=== PATIENT | male | born 1960 | race Caucasian/White ===

== ENCOUNTER 2017-04-01 20:18 | Observation (INO) | payer OTHER, SELFPAY ==
[2017-04-01] VITALS (7 sets, daily range): BP systolic 102–125; BP diastolic 66–99; PULSE 60–78; RESP 14–19; TEMP 35.8–36.4; O2SAT 83–98; BMI 24.7
[2017-04-01 20:32] LABS: Bedside Glucose 153 mg/dL (70-110)
--- NOTE | 2017-04-01 20:49 | ED.RN ---
2014 PT arrives via EMS with security and police at bedside. PT is talkative, at times wants to leave and can get combative. PT has short periods of unresponsive/passing out.
--- NOTE | 2017-04-01 20:51 | ED.RN ---
2030, pt wants to get out of bed/room and use restroom. Redirected PT several times, Valeriy Medic and myself had to put pt back into bed. PT became verbally abusive, refused to use urinal. Soft restraints placed.
--- NOTE | 2017-04-01 21:03 | EKG12_ITS ---
Test Reason : REPEAT Blood Pressure : / mmHG Vent. Rate : 060 BPM Atrial Rate : 060 BPM P-R Int : 160 ms QRS Dur : 140 ms QT Int : 476 ms P-R-T Axes : 053 037 -86 degrees QTc Int : 476 ms Suspect unspecified pacemaker failure Normal sinus rhythm Right bundle branch block T wave abnormality, consider lateral ischemia Abnormal ECG Confirmed by NARENDRA ALFREDO ([id number]), editor in chief BENJAMÍN JAVIER ([id number] on 04/06/2017 1:40:14 PM Referred By: WESTLEY Confirmed By:NARENDRA ALFREDO
--- NOTE | 2017-04-01 21:03 | CT_ITS ---
STUDY: CT BRAIN WITHOUT CONTRAST REASON FOR EXAM: Male, 56 years old. Falling injury of the head. RADIATION DOSAGE (If Supplied By Facility): CTDIvol = ( 44.99 ) mGy, DLP = ( 779.24 ) mGycm TECHNIQUE: Transaxial CT imaging of the brain was performed without administration of intravenous contrast material. Individualized dose optimization techniques were used for this CT. COMPARISON: Prior head CT exam of November 29, 2016 FINDINGS: Normal soft tissue structures. Normal calvarium. Normal size ventricles and extra-axial spaces for the patient's age. Normal white matter tracts of the cerebral hemispheres. Normal basal ganglia and thalami. Normal brainstem. Normal cerebellum. There is no intracranial hemorrhage. There are no findings of an acute ischemic infarction. Moderate mucosal thickening at the base of the left maxillary sinus with a small amount of free fluid. Few opacified air cells at the tip of the left mastoid process CT/Brain/Head without Contrast IMPRESSION: Normal unenhanced CT scan of the brain. Mucosal thickening and a small amount of fluid of the left maxillary sinus. A few opacified air cells at the tip of the left mastoid process. Electronically Signed: Daphney Curtis MD at 22:38 EST , Service support ,
--- NOTE | 2017-04-01 21:03 | CT_ITS ---
STUDY: CT CERVICAL SPINE WITHOUT CONTRAST REASON FOR EXAM: Male, 56 years old. Possible falling injury of the neck. RADIATION DOSAGE (If Supplied By Facility): CTDIvol = ( 20.93 ) mGy, DLP = ( 463.96 ) mGycm TECHNIQUE: High resolution transaxial imaging was performed without contrast material. Sagittal and coronal images were reconstructed. Individualized dose optimization techniques were used for this CT. COMPARISON: None FINDINGS: Normal craniovertebral junction. Normal anterior atlantoaxial articulation. Normal odontoid process. There is straightening of the normal cervical lordosis. Normal vertebral bodies and posterior osseous elements. C2-3: Mild disc narrowing without central stenosis or foraminal narrowing. C3-4: Mild disc narrowing and uncovertebral arthrosis. Negative for central stenosis. Minimal foraminal narrowing. C4-5: Mild disc narrowing and uncovertebral arthrosis. Negative for central or foraminal narrowing. C5-6: Disc narrowing and uncovertebral arthrosis. Negative for central stenosis. Mild bilateral foraminal narrowing. C6-7: Disc narrowing and uncovertebral arthrosis. Negative for central stenosis. Bilateral mild foraminal narrowing C7-T1: Normal endplates. Normal disc height and morphology. Normal central canal and intervertebral neuroforamina. Emphysematous changes of the upper lobes. Mild carotid artery calcifications. CT/Spine Cervical without Contras IMPRESSION: Straightening of the cervical spine without a fracture deformity. Mild degenerative disc and joint changes as stated above. Electronically Signed: Daphney Curtis MD at 22:36 EST , Service support ,
--- NOTE | 2017-04-01 21:09 | RAD_ITS ---
STUDY: X-RAY CHEST REASON FOR EXAM: Male, 56 years old. Low blood sugar. TECHNIQUE: Single AP portable view of the chest. COMPARISON: Prior chest radiograph of January 09, 2017. FINDINGS: Stable curvilinear scarring in the mid left lung. Limited inspiration without new consolidation or pleural effusion. Normal size heart. Status post prior midline sternotomy with right atrial/right ventricle pacemaker in good position. Normal visualized pulmonary arteries. There is atherosclerotic calcification of the aortic arch with tortuosity. Normal visualized ribs, clavicles, and shoulders. Surgical bartolome of the right axilla. RAD/Chest 1 View (Portable) IMPRESSION: Reduced inspiration without other acute findings or changes. Stable scar of the mid left lung. Normal cardiac size status post prior midline sternotomy with right atrial/ventricular pacemaker in good position. Electronically Signed: Daphney Curtis MD at 21:27 EST , Service support ,
[2017-04-01 21:17] LABS: Bedside Glucose 112 mg/dL (70-110)
--- NOTE | 2017-04-01 21:18 | ED.RN ---
PT refusing CT scan.
--- NOTE | 2017-04-01 21:25 | ED.RN ---
PT has fallen tonight and c/o headache. PT is unable to make his own decisions, therefore cannot refuse testing. PT and father aware. CT coming back to take PT.
[2017-04-01 21:31] LABS: ALB/GLOB Ratio 1.2 RATIO (0.9-2.4); AST(SGOT) 34 U/L (15-37); Alanine Aminotransfer ALT/SGPT 57 U/L (16-61); Albumin, Serum 3.7 g/dL (3.2-5.0); Alkaline Phosphatase 123 U/L (45-117); Anion Gap 8 (5-15); BUN 12 mg/dL (7-18); BUN/Creat Ratio 16.1 RATIO (10-20); Chloride 106 mmol/L (98-107); Creatinine, Serum 0.74 mg/dL (0.70-1.30); EST Glomerular Filtration Rate 116 mL/min (>60); Est Glom Filt Rate - Afr Amer 141 mL/min (>60); Estimated Creatinine Clearance 121.54 ml/min; Globulin 3.1 g/dL (2.2-4.2); Glucose 159 mg/dL (74-106); Potassium 3.5 mmol/L (3.5-5.1); Protein, Total 6.8 g/dL (6.4-8.2); Sodium Level 141 mmol/L (136-145)
[2017-04-01 21:37] LABS: Absolute Lymphocyte Count 1.28 X10^3/ul (0.83-4.51); Absolute Neutrophil Count 8.8 X10^3/uL (2.0-7.7); Basophil# 0.06 X10^3/uL; Basophil% 0.6 % (0-1); Eosinophil# 0.13 X10^3/uL; Eosinophils% 1.2 % (0-5); Hematocrit 38.7 % (40-54); Hemoglobin 12.7 g/dl (13.0-16.5); Lymphocyte # 1.28 X10^3/ul (4.0); Mean Corp Hgb Conc 32.8 g/gl (32-36); Mean Corpuscular Hgb 31.5 pg (27.0-32.0); Mean Platelet Vol. 10.9 fl (6.2-12.0); Monocyte# 0.41 X10^3/uL; Monocyte% 3.8 % (0-10); Neutrophil # 8.77 X10^3/uL (2.7-7.7); Neutrophil % 82.1 % (47-70); Platelet Count 221 K/mm3 (150-450); RBC Distribution Width CV 14.4 % (11.6-14.6); RBC Distribution Width SD 48.9 fl (35.1-43.9); Red Blood Count 4.03 M/mm3 (4.6-6.2); White Blood Count 10.7 K/mm3 (4.4-11.0)
[2017-04-01 21:40] LABS: POSITIVE COUNT NO; POSITIVE DIFFERENTIAL NO; POSITIVE MORPHOLOGY NO
[2017-04-01] MEDS: Ziprasidone IM 20 MG/ML VIAL IM (21:45)
[2017-04-01 21:54] LABS: Bacteria 0 SEEN /hpf (None Seen); Mucous, Urine 0 SEEN /hpf (<or=2+); Squamous Epithelial Cells - UA 0 SEEN /hpf (0-5); White Blood Cells 0 SEEN /hpf (0-5)
[2017-04-01 21:55] LABS: Color, Urine Yellow (Yellow); Glucose, Dipstick 50 mg/dl (Normal); Ketone-Dipstick Negative (Negative); Leukocyte Esterase-Dipstick Negative /ul (Negative); Nitrite-Dipstick Negative (Negative); Occult Blood-Urine 250 /ul (Negative); Protein-Dipstick Negative (Negative); Urine Bilirubin Dipstick Negative (Negative); Urine Clarity Clear (Clear); Urine Urobilinogen Normal (Normal)
[2017-04-01 22:10] LABS: Red Blood Cells-Urine 50-100 SEEN /hpf (0-5)
[2017-04-01 22:16] LABS: Amphetamine Urine VISTA NEGATIVE (<1000 ng/mL); Barbiturate Urine VISTA NEGATIVE (< 200 ng/mL); Benzodiazepine Urine VISTA NEGATIVE (< 200 ng/mL); Cocaine Urine VISTA NEGATIVE (< 300 ng/mL); Ecstacy Urine VISTA NEGATIVE (< 500 ng/mL); Methadone Urine VISTA NEGATIVE (< 300 ng/mL); PCP Urine VISTA NEGATIVE (< 25 ng/mL); THC Urine VISTA NEGATIVE (< 50 ng/mL); Vista UDS pH Range 6
--- NOTE | 2017-04-01 22:54 | EKG12_ITS ---
Test Reason : ETOH Blood Pressure : / mmHG Vent. Rate : 060 BPM Atrial Rate : 060 BPM P-R Int : 194 ms QRS Dur : 142 ms QT Int : 452 ms P-R-T Axes : 084 019 167 degrees QTc Int : 452 ms Atrial-paced rhythm Right bundle branch block T wave abnormality, consider lateral ischemia Abnormal ECG Confirmed by NARENDRA ALFREDO ([id number]), marketing editor BENJAMÍN JAVIER ([id number] on 04/06/2017 1:40:28 PM Referred By: WESTLEY Confirmed By:NARENDRA ALFREDO
--- NOTE | 2017-04-01 22:59 | ED.DCSUM_ITS ---
- ER Visit Summary Date of Service: 04/01/17 Chief Complaint: Unresponsive History of Present Illness: The patient is a 56 M who presents with altered mental status. He was drinking vodka tonight. Father states he heard him collapse in the bathroom. EMS was called. He was unresponsive on their arrival and hypoglycemic with a blood sugar in the 30s. He was given D50 and his blood sugar improved to over 200. The patient complains of a headache currently and the father does believe he hit his head when he collapsed. Otherwise father reports he has had no recent illness. No fevers cough vomiting or diarrhea he is aware of. Physical Examination: Afebrile vitals are stable Moist mucous membranes Heart regular rate and rhythm Lungs are clear Abdomen soft nontender Patient appears to be clinically intoxicated. He has no focal or lateralizing neurological deficits. Test Results: EKG shows a paced rhythm with a right bundle branch block and T- wave inversions in V4 through V6 which are new when compared to prior EKG. laboratory studies notable for hemoglobin 12.7 and 50-100 RBCs in the urine. Troponin negative at 0.05. Urine drug screen negative. Alcohol 194. Emergency Department Course and Treatment: Nursing reported that the patient had several syncopal events here. He was intoxicated and repetitively trying to get out of bed. He would collapse backwards and require sternal rub. This was never witnessed by the physician. He was placed in soft restraints. The patient was refusing workup. Given his alcohol intoxication I did not feel he was able to safely make these decisions on his own so he was sedated with intramuscular Geodon. Imaging unremarkable. Given the patient's extensive cardiac history and EKG changes with syncope I did feel he would require further workup. I do not believe alcohol alone explains his syncopal events or sudden collapse at home. Patient will be admitted. Repeat EKG and repeat troponin pending at the time of this dictation. Treatment Plan: [] Disposition: Admit Impression: Syncope EKG changes Hypoglycemia Alcohol intoxication This note was generated with [employer] dictation software. It may contain incorrect words, spelling, and punctuation that were not noted in review of the chart prior to signing ED Disposition - Plan for ED Patient: Chief Complaint: ETOH Intox Referrals: Donna Pedroza MD [Primary Care Provider] -
--- NOTE | 2017-04-01 23:00 | NURSING ---
WILL CALL THE PT FATHER WITH A ROOM NUMBER OR IF ANYTHING CHANGES WITH THE PT
--- NOTE | 2017-04-01 23:24 | HP.PCM_ITS ---
Problem List (1) Altered mental status Status: Acute Qualifiers: Altered mental status type: unspecified Qualified Code(s): R41.82 - Altered mental status, unspecified (2) Sick sinus syndrome Status: Chronic (3) Diabetes mellitus, type II Status: Chronic Qualifiers: Diabetes mellitus complication status: without complication Diabetes mellitus extermination supervisor insulin use: with extermination supervisor use Qualified Code(s): E11.9 - Type 2 diabetes mellitus without complications; Z79.4 - [facility] (current) use of insulin (4) HTN (hypertension) Status: Chronic Qualifiers: Hypertension type: essential hypertension Qualified Code(s): I10 - Essential (primary) hypertension (5) Tobacco use Status: Chronic History of Present Illness Date of Admission: 04/01/17 Chief Complaint: Loss of consciousness The patient is a 56 year old M with past medical history of alcohol use use disorder, type II DM, hypertension, status post bovine aortic valve replacement , aortic aneurysm surgical repair, nicotine use disorder, sick sinus syndrome with pacemaker insertion is being admitted with loss of consciousness. The EMS, they were called to the patient's home. Patient was found unresponsive in the bathroom floor. He lives with his father in a mobile home. His father states that the patient has been drinking vodka for most of the day. Blood sugar was 36 and he was treated with an amp of IV D50 by the EMS. Blood sugar was said to be 202. Patient subsequently became agitated and stated that he wanted to kill himself. He is reported by EMS reports to have lost his son to heroin overdose. In the ED, patient's vitals were stable, routine blood work was unremarkable. EKG shows some T-wave inversions in II, III, aVF, V5 and V6 he had complained of headache in the ED, was agitated, received Geodon IM, CT scan of the brain is negative. 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) Sick sinus syndrome (Chronic) Diabetes mellitus, type II (Chronic) HTN (hypertension) (Chronic) Tobacco use (Chronic) Aortic aneurysm (Chronic) H/O aortic valve replacement (Chronic) Allergies No Known Allergies Allergy (Verified 01/03/17 08:39) Home Medications: Ambulatory Orders Medication Instructions Recorded Insulin Detemir [Levemir] 30 units SC QHS 06/20/16 Lisinopril [Zestril] 20 mg PO DAILY 06/20/16 Metformin HCl [Glucophage] 1,000 mg PO BIDCM 06/20/16 Metoprolol Tartrate 100 mg PO BID 06/20/16 Atorvastatin Calcium [Lipitor] 40 mg PO QHS #0 tablet 06/21/16 Aspirin [Aspirin, Baby] 81 mg PO DAILY@0800 tab.chew 11/29/16 Surgical History: - - Aortic aneurysm repair and aortic valve replacement ( bovine) with total 3 separate surgies, most recent 04/2016 [facility], R inguinal hernia repair. Psychiatric History: No pertinent psych hx Smoking Status: Current every day smoker - *Family History Maternal History Items: Dementia Paternal History Items: Heart Disease Review of Systems Unable to obtain accurate/complete ROS d/t: Patient is currently sedated VTE Information - Inpt Only VTE Present on Admission: No VTE Pharm Prophylaxis ordered?: Yes Patient Problems: Active and Suspected Problems Altered mental status (Acute) - Physical Exam General: Cooperative, Lethargic - sedated HEENT: Atraumatic, PERRLA, EOMI, Normocephalic Oral: Moist Mucosa Neck: Supple Lungs: Clear to auscultation, Normal air movement Cardiovascular: Regular rate, No murmurs, - - Midsternal scar, right subclavian pacemaker scar Abdomen: Bowel Sounds Present, Soft, Non Tender, Non-Distended, - - laparoscopic scars on abdomen. Extremities: No edema Skin: No rashes Musculoskeletal: No Tenderness to Palpation of Joints or Extremities Lymphatic: No Cervical, Supraclavicular, or Inguinal Adenopathy Neurological: Motor Exam 5/5 strength throughout, - - Patient is sedated Psych/Mental Status: Normal Affect, Appropriate Vital Signs Temp Pulse Resp BP Pulse Ox 96.5 F L 78 14 102/76 98 04/01/17 20:19 04/01/17 23:00 04/01/17 23:00 04/01/17 23:00 04/01/17 23:00 Oxygen Flow Rate 2 Oxygen Delivery Method Nasal Cannula Weight: 80.6 kg Body Mass Index (BMI) 24.7 Finger Stick Blood Glucose 112 Laboratory Tests Past 24 Hrs 04/01/17 04/01/17 04/01/17 20:25 20:25 20:25 WBC 10.7 RBC 4.03 L Hgb 12.7 L Hct 38.7 L MCV 96.0 H MCH 31.5 MCHC 32.8 RDW 14.4 RDW Differential 48.9 H Plt Count 221 MPV 10.9 Immature Gran % (Auto) 0.300 Neut % (Auto) 82.1 H Lymph % (Auto) 12.0 L [place] % (Auto) 3.8 Eos % (Auto) 1.2 Baso % (Auto) 0.6 Absolute Neuts (auto) 8.8 H Absolute Lymphs (auto) 1.28 Total Counted Not Reportable Sodium 141 Potassium 3.5 Chloride 106 Carbon Dioxide 27.0 Anion Gap 8 BUN 12 Creatinine 0.74 Estim Creat Clear Calc 121.54 Est GFR (MDRD) Af Amer 141 Est GFR (MDRD) Non-Af 116 BUN/Creatinine Ratio 16.1 Glucose 159 H Calcium 8.0 L Total Bilirubin 0.20 AST 34 ALT 57 Alkaline Phosphatase 123 H Troponin I 0.05 Total Protein 6.8 Albumin 3.7 Globulin 3.1 Albumin/Globulin Ratio 1.2 Urine Color Urine Clarity Urine pH Ur Specific [place] Urine Protein Urine Glucose (UA) Urine Ketones Urine Occult Blood Urine Nitrite Urine Bilirubin Urine Urobilinogen Ur Leukocyte Esterase Urine RBC Urine WBC Ur Squamous Epith Cells Urine Bacteria Urine Mucus Urine Opiates Screen Urine Methadone Screen Ur Barbiturates Screen Ur Phencyclidine Scrn Ur Amphetamines Screen U Methamphetamin-MDMA U Benzodiazepines Scrn Urine Cocaine Screen U Cannabinoids Screen Ur Drug Screen Comment Ethyl Alcohol 194.0 04/01/17 04/01/17 04/01/17 21:40 21:40 23:10 WBC RBC Hgb Hct MCV MCH MCHC RDW RDW Differential Plt Count MPV Immature Gran % (Auto) Neut % (Auto) Lymph % (Auto) [place] % (Auto) Eos % (Auto) Baso % (Auto) Absolute Neuts (auto) Absolute Lymphs (auto) Total Counted Sodium Potassium Chloride Carbon Dioxide Anion Gap BUN Creatinine Estim Creat Clear Calc Est GFR (MDRD) Af Amer Est GFR (MDRD) Non-Af BUN/Creatinine Ratio Glucose Calcium Total Bilirubin AST ALT Alkaline Phosphatase Troponin I Pending Total Protein Albumin Globulin Albumin/Globulin Ratio Urine Color Yellow Urine Clarity Clear Urine pH 6.0 Ur Specific [place] 1.010 Urine Protein Negative Urine Glucose (UA) 50 H Urine Ketones Negative Urine Occult Blood 250 H Urine Nitrite Negative Urine Bilirubin Negative Urine Urobilinogen Normal Ur Leukocyte Esterase Negative Urine RBC 50-100 SEEN Urine WBC 0 SEEN Ur Squamous Epith Cells 0 SEEN Urine Bacteria 0 SEEN Urine Mucus 0 SEEN Urine Opiates Screen NEGATIVE Urine Methadone Screen NEGATIVE Ur Barbiturates Screen NEGATIVE Ur Phencyclidine Scrn NEGATIVE Ur Amphetamines Screen NEGATIVE U Methamphetamin-MDMA NEGATIVE U Benzodiazepines Scrn NEGATIVE Urine Cocaine Screen NEGATIVE U Cannabinoids Screen NEGATIVE Ur Drug Screen Comment Ethyl Alcohol POC Glucose 04/01/17 04/01/17 21:08 20:21 POC Glucose 112 H 153 H Assessment/Plan Active and Suspected Problems Altered mental status (Acute) 56 year old M with past medical history of alcohol use use disorder, type II DM , hypertension, status post bovine aortic valve replacement, aortic aneurysm surgical repair, nicotine use disorder, sick sinus syndrome with pacemaker insertion is being admitted with loss of consciousness. 1. Altered Mental status/loss of consciousness secondary to alcohol overdose/ hypoglycemia, admitting alcohol level is 194, urine toxicology has been negative. History of alcohol use disorder, vitals otherwise are stable. It is not clear if this was a suicide attempt. Plan: Admit to PCU, monitor on telemetry, CIWA protocol, treatment of hypoglycemia, consult mental health/crisis 2. Hypoglycemia in a known type II DM, insulin and metformin, both medications have been on hold, will continue to monitor with Accu-Cheks and insulin sliding scale and treat accordingly 3. Abnormal EKG new T-wave inversions in the anterior lateral leads, troponins ? 1 is negative, will trend troponins continue on aspirin, statin 4. Suicidal ideation, will consult Mental health, suicide precautions. 5. Hypertension, controlled 5. Type II DM, currently hypoglycemic, medications on hold, will continue to monitor blood sugar. 6. Nicotine use disorder, start on nicotine patch 7. Alcohol use disorder, on CIWA protocol, 7. DVT PPx - Lovenox SC Code Visit Inpatient E&M: 16403 Init Hosp L3
[2017-04-01 23:46] LABS: Bedside Glucose 55 mg/dL (70-110)
[2017-04-01] MEDS: Dextrose 50%-Water 25 GM/50 ML DISP.SYRIN IV (23:59)
[2017-04-01] MEDS: Dext 5%-0.45% NS 1,000 ML 100 ML IV (23:59)
[2017-04-02] VITALS (10 sets, daily range): BP systolic 91–168; BP diastolic 61–99; PULSE 60–99; RESP 14–18; TEMP 36.6–37.4; O2SAT 92–100; BMI 20.8
[2017-04-02 00:11] LABS: Bedside Glucose 119 mg/dL (70-110)
[2017-04-02 01:45] LABS: Bedside Glucose 95 mg/dL (70-110)
[2017-04-02 04:10] LABS: Hematocrit 40.6 % (40-54); Hemoglobin 13.3 g/dl (13.0-16.5); Mean Corp Hgb Conc 32.8 g/gl (32-36); Mean Corpuscular Hgb 31.6 pg (27.0-32.0); Mean Corpuscular Volume 96.4 fL (80-94); Mean Platelet Vol. 10.6 fl (6.2-12.0); Platelet Count 196 K/mm3 (150-450); RBC Distribution Width CV 14.7 % (11.6-14.6); RBC Distribution Width SD 50.5 fl (35.1-43.9); Red Blood Count 4.21 M/mm3 (4.6-6.2); White Blood Count 6.9 K/mm3 (4.4-11.0)
[2017-04-02 04:11] LABS: Scan Indicated on CBC? Y/N NO
[2017-04-02 04:25] LABS: Anion Gap 8 (5-15); BUN 11 mg/dL (7-18); BUN/Creat Ratio 16.7 RATIO (10-20); Calcium,Total 8.2 mg/dL (8.5-10.1); Chloride 111 mmol/L (98-107); Creatinine, Serum 0.66 mg/dL (0.70-1.30); EST Glomerular Filtration Rate 134 mL/min (>60); Est Glom Filt Rate - Afr Amer 162 mL/min (>60); Estimated Creatinine Clearance 122.16 ml/min; Glucose 92 mg/dL (74-106); Potassium 3.8 mmol/L (3.5-5.1); Sodium Level 144 mmol/L (136-145)
[2017-04-02 06:56] LABS: Bedside Glucose 112 mg/dL (70-110)
[2017-04-02] MEDS: Dext 5%-0.45% NS 1,000 ML 100 ML IV (08:22)
[2017-04-02] MEDS: Acetaminophen 325 MG Tablet 650 MG PO (08:23)
[2017-04-02] MEDS: Folic Acid 1 MG Tablet PO (08:26)
[2017-04-02] MEDS: Famotidine 20 MG Tablet PO (08:26)
[2017-04-02] MEDS: Thiamine Hydrochloride 100 MG Tablet PO (08:26)
[2017-04-02] MEDS: Multivitamins,Ther W-Minerals Tablet 1 TABLET PO (08:26)
[2017-04-02] MEDS: Enoxaparin 40 MG/0.4 ML Syringe SC (08:27)
--- NOTE | 2017-04-02 11:32 | DCINST_ITS ---
- Discharge Diagnoses Current Active Problems: Current Active and Chronic Problems Altered mental status (Acute) You will use the following diet at home:: Calorie/Carbohydrate Controlled ( specify 1200, 1400, etc) - 1800 kcal/day, Cardiac Your food should be the consistency of: Regular Your liquids should be the consistency of: Regular/Thin Discharge Activity: Return to Normal Activity Return to work on:: 04/02/17 Call your doctor if you observe: Fever of 101 or Higher, - - syncope Allergies/Adverse Reactions: Allergies No Known Allergies Allergy (Verified 01/03/17 08:39) Medications to take at Discharge Insulin Detemir [Levemir] 25 units SC BID 06/20/16 Lisinopril [Zestril] 20 mg PO DAILY 06/20/16 Metoprolol Tartrate 100 mg PO BID 06/20/16 Acetaminophen [Tylenol Tablet] 500 mg PO Q6H PRN PRN tablet 04/02/17 Aspirin [Aspirin, Baby] 81 mg PO DAILY@0800 04/02/17 Atorvastatin Calcium [Lipitor] 40 mg PO QHS 04/02/17 Fluoxetine HCl [Prozac] 40 mg PO DAILY 04/02/17 Primary Care Physician: Donna Pedroza MD [Primary Care Provider] - Within 2 Weeks Please Follow Up With: 180 - counseling When: 1 week Proposed Discharge Date: 04/02/17
--- NOTE | 2017-04-02 11:32 | PCM.DC.SUM ---
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 Mucosal thickening and a small amount of fluid of the left maxillary sinus. A few opacified air cells at the tip of the left mastoid process. Electronically Signed: Daphney Curtis MD at 22:38 EST , Service support , Cervical Spine CT 04/01/17 21:03 IMPRESSION: Straightening of the cervical spine without a fracture deformity. Mild degenerative disc and joint changes as stated above. Electronically Signed: Daphney Curtis MD at 22:36 EST , Service support , Chest X-Ray 04/01/17 21:09 IMPRESSION: Reduced inspiration without other acute findings or changes. Stable scar of the mid left lung. Normal cardiac size status post prior midline sternotomy with right atrial/ventricular pacemaker in good position. Electronically Signed: Daphney Curtis MD at 21:27 EST , Service support , Consultations 04/02/17 03:31 Consult: Mental Health/Crisis Routine Reason for consult?: Suicidal ideation/attempt Date Notified:: 04/02/17 Time notified:: 09:10 Operations: None Summary of Care Provided: The patient is a 56 year old M found unresponsive intoxicated. Patient was also found to be hypoglycemic as well. Patient was brought to the emergency room and eventually sobered up. Patient was monitored overnight and had no further issues. Addition the patient's stupor study want to kill himself. Patient has no recollection of illness and denies feeling suicidal. Patient apparently has done this before. Patient was seen by crisis who do not feel the patient is a threat for suicide. Patient has been advised to not drink at all. Patient otherwise feels well he feels remorseful for the events. Patient is on insulin with Levemir plus metformin. I have advised patient to discontinue the metformin because of the risk of further hypoglycemia. [] Discharge Diet: 1800 Calorie Control Diet Discharge Activity: Return to Normal Activity Return to work on:: 04/02/17 Call your doctor if you observe: Fever of 101 or Higher, - - syncope Home Medications: Medications to take at Discharge Insulin Detemir [Levemir] 25 units SC BID 06/20/16 Lisinopril [Zestril] 20 mg PO DAILY 06/20/16 Metoprolol Tartrate 100 mg PO BID 06/20/16 Acetaminophen [Tylenol Tablet] 500 mg PO Q6H PRN PRN tablet 04/02/17 Aspirin [Aspirin, Baby] 81 mg PO DAILY@0800 04/02/17 Atorvastatin Calcium [Lipitor] 40 mg PO QHS 04/02/17 Fluoxetine HCl [Prozac] 40 mg PO DAILY 04/02/17 Primary Care Physician: Donna Pedroza MD [Primary Care Provider] - Within 2 Weeks Please Follow Up With: 180 - counseling When: 1 week Disposition: Home Minutes spent on discharge:: 28 Patient Condition:: Good Meaningful Use Info Meaningful Use Diagnoses (Choose all that apply): None applicable Code Visit OBSV E&M: 13590 Observation care discharge
--- NOTE | 2017-04-02 11:34 | PCM.CONS.C ---
Problem List (1) Altered mental status Status: Acute Qualifiers: Altered mental status type: unspecified Qualified Code(s): R41.82 - Altered mental status, unspecified (2) Pacemaker Status: Acute (3) Sick sinus syndrome Status: Chronic (4) HTN (hypertension) Status: Chronic Qualifiers: Hypertension type: essential hypertension Qualified Code(s): I10 - Essential (primary) hypertension (5) Aortic aneurysm Status: Chronic Qualifiers: Aortic location: unspecified (6) H/O aortic valve replacement Status: Chronic Reason for Consult Date of Consultation: 04/02/17 Reason for Consultation: Syncope, history of aortic valve replacement, history of a sending aortic root repair/replacement, permanent pacemaker, tobacco abuse, alcohol abuse. History of Present Illness: The patient is a 56 year old M, diabetic no previous known coronary disease, with a history of hypercholesterolemia and apparently underwent an aortic aneurysm repair in 2010 at the [facility]. In 2015 patient apparently required aortic valve replacement and received a mechanical valve from [facility] at that time. Patient apparently required redo ascending aortic root replacement and replacement of his mechanical valve for a bovine aortic valve at the [facility] in 2016. Subsequent to that the patient required permanent pacemaker placement for bradycardia at the time of his most recent open heart surgery. According to the patient is never had bypass of his coronary arteries or stents. He does smoke however and he was an alcoholic for approximately 10 years time. The patient quit alcohol about 20 months ago, but then restarted drinking this past weekend on the anniversary of his son's overdose. The patient was drinking 1-2/5 of vodka on a daily basis for the past several days. As best he can remember he blacked out and was found in his bathroom with blood sugars in the 30s. Patient does not remember anything or how he got to the hospital. He denied any chest pain symptoms. He denies any loss of bowel or bladder function. Upon arrival his EKG showed paced atrial rhythm with normal intrinsic ventricular response. No acute changes. Echocardiogram is pending. Pacer interrogation is pending. Prior to his reinitiation of drinking, patient denied any chest pain, angina, shortness of breath or dyspnea on exertion, fevers, chills. The patient follows with Dr. Rosa locally. Past Medical History Allergies/Adverse Reactions: Allergies No Known Allergies Allergy (Verified 01/03/17 08:39) Home Medications: Ambulatory Orders Medication Instructions Recorded Insulin Detemir [Levemir] 25 units SC BID 06/20/16 Lisinopril [Zestril] 20 mg PO DAILY 06/20/16 Metoprolol Tartrate 100 mg PO BID 06/20/16 Acetaminophen [Tylenol Tablet] 500 mg PO Q6H PRN PRN tablet 04/02/17 Aspirin [Aspirin, Baby] 81 mg PO DAILY@0800 04/02/17 Atorvastatin Calcium [Lipitor] 40 mg PO QHS 04/02/17 Fluoxetine HCl [Prozac] 40 mg PO DAILY 04/02/17 Past Medical History (Chronic Problems): Chronic Problems 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 Psychiatric History: No pertinent psych hx - *Family History Maternal History Items: Dementia Paternal History Items: Heart Disease Smoking Status: Current every day smoker Review of Systems - Review of Systems General: Denies: Fever, Night Sweats, Fatigue Cardiovascular: Reports: Syncope. Denies: Chest Discomfort, Shortness of Breath, Orthopnea, PND, Peripheral Edema, Palpitations, Lightheadedness, Dizziness, Near Syncope Respiratory: Denies: Cough, Sputum Production, Hemoptysis Gastrointestinal: Denies: Hematemesis, Hematochezia, Melena Genitourinary: Denies: Dysuria, Hematuria Skin: Denies: Rash Subjectve: Patient completely stable, no acute distress, answers questions appropriately. Objective: Vital Signs Temp Pulse Resp BP Pulse Ox 98 F 87 16 168/99 H 100 04/02/17 10:00 04/02/17 11:02 04/02/17 10:00 04/02/17 10:04/02/17 10:00 Oxygen Flow Rate 3 Oxygen Delivery Method Room Air Weight: 148 lb 12.992 oz Body Mass Index (BMI) 20.8 Finger Stick Blood Glucose 119 Intake and Output for Last 24 Hours 03/31/17 04/01/17 04/02/17 23:59 23:59 23:59 Intake Total 620 / 620 Output Total 525 / 525 Balance 95 / 95 General: Awake, Alert, Oriented x 3 HEENT: PERRL, EOMI, Sclera Non Icteric Neck: Supple, Good ROM, No Lymph Node Enlargement Lungs: Clear to auscultation Cardiovascular: Regular Rhythm, Normal S1, Normal S2, No Rubs, No Gallops Murmur Murmur: Grade 3/6, Crescendo-Decrescendo Vascular: No Carotid Bruits, Normal Femoral Pulses, Normal Radial Pulses, Normal Dorsalis Pedal Pulse, Normal Posterior Tibial Pulses Abdomen: Bowel Sounds Present, Soft, Non Tender, No HSM, No Organomegaly Extremities: No Cyanosis, No Clubbing, No edema Neurological: No Focal Motor or Sensory Deficit 04/02/17 04:00: WBC 6.9, RBC 4.21 L, Hgb 13.3, Hct 40.6, MCV 96.4 H, MCH 31.6, MCHC 32.8, RDW 14.7 H, RDW Differential 50.5 H, Plt Count 196, MPV 10.6 04/02/17 04:00: Sodium 144, Potassium 3.8, Chloride 111 H, Carbon Dioxide 25.0, Anion Gap 8, BUN 11, Creatinine 0.66 L, Est GFR (MDRD) Af Amer 162, Est GFR (MDRD) Non-Af 134, BUN/Creatinine Ratio 16.7, Glucose 92, Calcium 8.2 L 04/02/17 04:00: Troponin I 0.06 04/02/17 08:40: Troponin I 0.06 Rhythm: EKG: As above ECHO: Pending Stress Test: Cardiac Cath: PCI: CT Surgery: Holter monitor: EPS: PPM: Interrogation pending CXR: Chest CT Scan: Assessment/Plan 1. Blackout: The patient's blackout spell is most likely a result of his excessive alcohol use, and his low blood sugar. Patient has had no symptoms related to his heart valve replacement prior to his blackout spell. He has had no fevers or chills. Out of an abundance of caution I recommend interrogating his pacemaker and if that is okay and if his echocardiogram shows no signs of abnormalities on his bioprosthetic aortic valve, I would recommend discharge home. He can follow-up with Dr. Rosa. If however his echocardiogram shows any signs of endocarditis he may require further evaluation such as a ALBERT. I strongly recommended the patient to discontinue all tobacco and alcohol products, and he will attempt to do so. He will most likely require assistance with this given his history of alcoholism for greater than 10 years in the past. 2. Hypertension: Recommend restarting his metoprolol 100 mg p.o. twice daily, and lisinopril 20 mg a day. 3. Hyperlipidemia: Restart statin based medications. 4. Patient may be discharged home if the above checks out. He may follow-up with Dr. Rosa going forward. Code Visit Inpatient E&M: 74432 Init Hosp L2
--- NOTE | 2017-04-02 11:36 | DS.PCM_ITS ---
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 Mucosal thickening and a small amount of fluid of the left maxillary sinus. A few opacified air cells at the tip of the left mastoid process. Electronically Signed: Daphney Curtis MD at 22:38 EST , Service support , Cervical Spine CT 04/01/17 21:03 IMPRESSION: Straightening of the cervical spine without a fracture deformity. Mild degenerative disc and joint changes as stated above. Electronically Signed: Daphney Curtis MD at 22:36 EST , Service support , Chest X-Ray 04/01/17 21:09 IMPRESSION: Reduced inspiration without other acute findings or changes. Stable scar of the mid left lung. Normal cardiac size status post prior midline sternotomy with right atrial/ventricular pacemaker in good position. Electronically Signed: Daphney Curtis MD at 21:27 EST , Service support , Consultations 04/02/17 03:31 Consult: Mental Health/Crisis Routine Reason for consult?: Suicidal ideation/attempt Date Notified:: 04/02/17 Time notified:: 09:10 Operations: None Summary of Care Provided: The patient is a 56 year old M found unresponsive intoxicated. Patient was also found to be hypoglycemic as well. Patient was brought to the emergency room and eventually sobered up. Patient was monitored overnight and had no further issues. Addition the patient's stupor study want to kill himself. Patient has no recollection of illness and denies feeling suicidal. Patient apparently has done this before. Patient was seen by crisis who do not feel the patient is a threat for suicide. Patient has been advised to not drink at all. Patient otherwise feels well he feels remorseful for the events. Patient is on insulin with Levemir plus metformin. I have advised patient to discontinue the metformin because of the risk of further hypoglycemia. [] Discharge Diet: 1800 Calorie Control Diet Discharge Activity: Return to Normal Activity Return to work on:: 04/02/17 Call your doctor if you observe: Fever of 101 or Higher, - - syncope Home Medications: Medications to take at Discharge Insulin Detemir [Levemir] 25 units SC BID 06/20/16 Lisinopril [Zestril] 20 mg PO DAILY 06/20/16 Metoprolol Tartrate 100 mg PO BID 06/20/16 Acetaminophen [Tylenol Tablet] 500 mg PO Q6H PRN PRN tablet 04/02/17 Aspirin [Aspirin, Baby] 81 mg PO DAILY@0800 04/02/17 Atorvastatin Calcium [Lipitor] 40 mg PO QHS 04/02/17 Fluoxetine HCl [Prozac] 40 mg PO DAILY 04/02/17 Primary Care Physician: Donna Pedroza MD [Primary Care Provider] - Within 2 Weeks Please Follow Up With: 180 - counseling When: 1 week Disposition: Home Minutes spent on discharge:: 28 Patient Condition:: Good Meaningful Use Info Meaningful Use Diagnoses (Choose all that apply): None applicable Code Visit OBSV E&M: 78634 Observation care discharge
--- NOTE | 2017-04-02 11:41 | CON.PCM_ITS ---
Problem List (1) Altered mental status Status: Acute Qualifiers: Altered mental status type: unspecified Qualified Code(s): R41.82 - Altered mental status, unspecified (2) Pacemaker Status: Acute (3) Sick sinus syndrome Status: Chronic (4) HTN (hypertension) Status: Chronic Qualifiers: Hypertension type: essential hypertension Qualified Code(s): I10 - Essential (primary) hypertension (5) Aortic aneurysm Status: Chronic Qualifiers: Aortic location: unspecified (6) H/O aortic valve replacement Status: Chronic Reason for Consult Date of Consultation: 04/02/17 Reason for Consultation: Syncope, history of aortic valve replacement, history of a sending aortic root repair/replacement, permanent pacemaker, tobacco abuse , alcohol abuse. History of Present Illness: The patient is a 56 year old M, diabetic no previous known coronary disease, with a history of hypercholesterolemia and apparently underwent an aortic aneurysm repair in 2010 at the [facility]. In 2015 patient apparently required aortic valve replacement and received a mechanical valve from [facility] at that time. Patient apparently required redo ascending aortic root replacement and replacement of his mechanical valve for a bovine aortic valve at the [facility] in 2016. Subsequent to that the patient required permanent pacemaker placement for bradycardia at the time of his most recent open heart surgery. According to the patient is never had bypass of his coronary arteries or stents. He does smoke however and he was an alcoholic for approximately 10 years time. The patient quit alcohol about 20 months ago, but then restarted drinking this past weekend on the anniversary of his son's overdose. The patient was drinking 1-2/5 of vodka on a daily basis for the past several days. As best he can remember he blacked out and was found in his bathroom with blood sugars in the 30s. Patient does not remember anything or how he got to the hospital. He denied any chest pain symptoms. He denies any loss of bowel or bladder function. Upon arrival his EKG showed paced atrial rhythm with normal intrinsic ventricular response. No acute changes. Echocardiogram is pending. Pacer interrogation is pending. Prior to his reinitiation of drinking, patient denied any chest pain, angina, shortness of breath or dyspnea on exertion, fevers, chills. The patient follows with Dr. Rosa locally. Past Medical History Allergies/Adverse Reactions: Allergies No Known Allergies Allergy (Verified 01/03/17 08:39) Home Medications: Ambulatory Orders Medication Instructions Recorded Insulin Detemir [Levemir] 25 units SC BID 06/20/16 Lisinopril [Zestril] 20 mg PO DAILY 06/20/16 Metoprolol Tartrate 100 mg PO BID 06/20/16 Acetaminophen [Tylenol Tablet] 500 mg PO Q6H PRN PRN tablet 04/02/17 Aspirin [Aspirin, Baby] 81 mg PO DAILY@0800 04/02/17 Atorvastatin Calcium [Lipitor] 40 mg PO QHS 04/02/17 Fluoxetine HCl [Prozac] 40 mg PO DAILY 04/02/17 Past Medical History (Chronic Problems): Chronic Problems 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 Psychiatric History: No pertinent psych hx - *Family History Maternal History Items: Dementia Paternal History Items: Heart Disease Smoking Status: Current every day smoker Review of Systems - Review of Systems General: Denies: Fever, Night Sweats, Fatigue Cardiovascular: Reports: Syncope. Denies: Chest Discomfort, Shortness of Breath , Orthopnea, PND, Peripheral Edema, Palpitations, Lightheadedness, Dizziness, Near Syncope Respiratory: Denies: Cough, Sputum Production, Hemoptysis Gastrointestinal: Denies: Hematemesis, Hematochezia, Melena Genitourinary: Denies: Dysuria, Hematuria Skin: Denies: Rash Subjectve: Patient completely stable, no acute distress, answers questions appropriately. Objective: Vital Signs Temp Pulse Resp BP Pulse Ox 98 F 87 16 168/99 H 100 04/02/17 10:00 04/02/17 11:02 04/02/17 10:00 04/02/17 10:04/02/17 10:00 Oxygen Flow Rate 3 Oxygen Delivery Method Room Air Weight: 148 lb 12.992 oz Body Mass Index (BMI) 20.8 Finger Stick Blood Glucose 119 Intake and Output for Last 24 Hours 03/31/17 04/01/17 04/02/17 23:59 23:59 23:59 Intake Total 620 / 620 Output Total 525 / 525 Balance 95 / 95 General: Awake, Alert, Oriented x 3 HEENT: PERRL, EOMI, Sclera Non Icteric Neck: Supple, Good ROM, No Lymph Node Enlargement Lungs: Clear to auscultation Cardiovascular: Regular Rhythm, Normal S1, Normal S2, No Rubs, No Gallops Murmur Murmur: Grade 3/6, Crescendo-Decrescendo Vascular: No Carotid Bruits, Normal Femoral Pulses, Normal Radial Pulses, Normal Dorsalis Pedal Pulse, Normal Posterior Tibial Pulses Abdomen: Bowel Sounds Present, Soft, Non Tender, No HSM, No Organomegaly Extremities: No Cyanosis, No Clubbing, No edema Neurological: No Focal Motor or Sensory Deficit 04/02/17 04:00: WBC 6.9, RBC 4.21 L, Hgb 13.3, Hct 40.6, MCV 96.4 H, MCH 31.6, MCHC 32.8, RDW 14.7 H, RDW Differential 50.5 H, Plt Count 196, MPV 10.6 04/02/17 04:00: Sodium 144, Potassium 3.8, Chloride 111 H, Carbon Dioxide 25.0, Anion Gap 8, BUN 11, Creatinine 0.66 L, Est GFR (MDRD) Af Amer 162, Est GFR ( MDRD) Non-Af 134, BUN/Creatinine Ratio 16.7, Glucose 92, Calcium 8.2 L 04/02/17 04:00: Troponin I 0.06 04/02/17 08:40: Troponin I 0.06 Rhythm: EKG: As above ECHO: Pending Stress Test: Cardiac Cath: PCI: CT Surgery: Holter monitor: EPS: PPM: Interrogation pending CXR: Chest CT Scan: Assessment/Plan 1. Blackout: The patient's blackout spell is most likely a result of his excessive alcohol use, and his low blood sugar. Patient has had no symptoms related to his heart valve replacement prior to his blackout spell. He has had no fevers or chills. Out of an abundance of caution I recommend interrogating his pacemaker and if that is okay and if his echocardiogram shows no signs of abnormalities on his bioprosthetic aortic valve, I would recommend discharge home. He can follow-up with Dr. Rosa. If however his echocardiogram shows any signs of endocarditis he may require further evaluation such as a ALBERT. I strongly recommended the patient to discontinue all tobacco and alcohol products, and he will attempt to do so. He will most likely require assistance with this given his history of alcoholism for greater than 10 years in the past. 2. Hypertension: Recommend restarting his metoprolol 100 mg p.o. twice daily, and lisinopril 20 mg a day. 3. Hyperlipidemia: Restart statin based medications. 4. Patient may be discharged home if the above checks out. He may follow-up with Dr. Rosa going forward. Code Visit Inpatient E&M: 14396 Init Hosp L2
[2017-04-02 12:11] LABS: Bedside Glucose > 500 mg/dL (70-110)
--- NOTE | 2017-04-02 13:12 | PCM.PACRNU ---
Pacer Nurse Hospital Visit Notes: Dual Chamber Pacemaker Evaluation: Interrogtion completed at bedside PCU #[id number] per MD order. Interrogation shows 21 NSVT episodes and 1 Fast A&V episode since 09/08/16. Stored e-grams available for review for NSVT episodes show what appears to be atrial tachycardia with ventricular rate @ 160 to 170 bpm. Last episode on 01/23/17. Stored e-gram for fast A&V episode shows supraventricular tachycardia @ 160 bpm. Left pectoral pocket/incision w/o s/s of infection or erosion. Presenting rhythm shows NSR @ 88 bpm. Battery longevity approx 8.5 yrs. BANNER PAINTER=0.2%. AP=76.6%. Lead impedances, sensing and pace/sense thresholds stable. Normal PPM function. Dr. Davila notified of above. Patient has device followed by [facility]. Sally West RN - Pacer Check Procedure Procedures: 32419 PM Eval Dual
== END 2017-04-02 11:21 | disposition home or self-care (01) ==
LOC: ED 21:55 → PCU 04-02 00:04
PROVIDERS: Admitting Provider Internal Medicine; Emergency Provider Emergency Medicine; Family Provider Family Medicine; PCP Family Medicine
DX: R41.82 Altered mental status, unspecified (principal); I10 Essential (primary) hypertension; Z95.2 Presence of prosthetic heart valve; E11.649 Type 2 diabetes mellitus with hypoglycemia without coma; F10.229 Alcohol dependence with intoxication, unspecified; Y90.6 Blood alcohol level of 120-199 mg/100 ml; I45.10 Unspecified right bundle-branch block; R55 Syncope and collapse; Z79.4 Long term (current) use of insulin; Z79.899 Other long term (current) drug therapy; Z79.82 Long term (current) use of aspirin; Z95.0 Presence of cardiac pacemaker; R45.851 Suicidal ideations; R94.31 Abnormal electrocardiogram [ECG] [EKG]; F17.200 Nicotine dependence, unspecified, uncomplicated
CPT/HCPCS: 36415; 70450; 71045; 72125; 80048; 80053; 80307; 80320; 81001; 82962; 84443; 84484; 85025; 85027; 93005; 96361; 96372; 96374; 97161; 97165; 97802; 99218; 99285; J7050; A4216; G0378; G0480; J3486; J7799

== ENCOUNTER 2017-04-13 17:48 | Emergency (ER) | payer OTHER, SELFPAY ==
[2017-04-13 17:49] VITALS: BP 202/110; PULSE 74; RESP 18; TEMP 36.4; O2SAT 100; BMI 24.9
--- NOTE | 2017-04-13 18:59 | CT_ITS ---
STUDY: CT BRAIN WITHOUT CONTRAST REASON FOR EXAM: Male, 56 years old. Trauma. RADIATION DOSAGE (If Supplied By Facility): CTDIvol = ( 32.57 ) mGy, DLP = ( 1185.64 ) mGycm TECHNIQUE: Transaxial CT imaging of the brain was performed without administration of intravenous contrast material. Individualized dose optimization techniques were used for this CT. COMPARISON: April 01, 2017.. FINDINGS: Normal soft tissue structures. Normal calvarium. Normal size ventricles and extra-axial spaces for the patient's age. Normal white matter tracts of the cerebral hemispheres. Normal basal ganglia and thalami. Normal brainstem. Normal cerebellum. There is no intracranial hemorrhage. There are no findings of an acute ischemic infarction. Moderate mucosal thickening of the left maxillary sinus. Mild left mastoid opacification is stable. CT/Brain/Head without Contrast IMPRESSION: Normal unenhanced CT scan of the brain. Stable appearance. Electronically Signed: Carlos Ye MD at 20:12 EST , Service support ,
--- NOTE | 2017-04-13 18:59 | EKG12_ITS ---
Test Reason : SUICIDAL Blood Pressure : / mmHG Vent. Rate : 060 BPM Atrial Rate : 060 BPM P-R Int : 188 ms QRS Dur : 128 ms QT Int : 448 ms P-R-T Axes : 068 -06 095 degrees QTc Int : 448 ms Atrial-paced rhythm Right bundle branch block T wave abnormality, consider lateral ischemia Abnormal ECG Confirmed by ZHAO FRANCISCO, KETTY ([id number]), rewrite editor BENJAMÍN JAVIER ([id number]) on 04/16/2017 3:05:40 PM Referred By: SOY Confirmed By:KETTY CHURCHILL MD
--- NOTE | 2017-04-13 19:00 | CT_ITS ---
STUDY: CT CERVICAL SPINE WITHOUT CONTRAST REASON FOR EXAM: Male, 56 years old. Trauma. RADIATION DOSAGE (If Supplied By Facility): CTDIvol = ( 32.57 ) mGy, DLP = ( 1185.64 ) mGycm TECHNIQUE: High resolution transaxial imaging was performed without contrast material. Sagittal and coronal images were reconstructed. Individualized dose optimization techniques were used for this CT. COMPARISON: April 01, 2017. FINDINGS: Normal craniovertebral junction. Normal anterior atlantoaxial articulation. Normal odontoid process. There is straightening of the normal cervical lordosis. Normal vertebral bodies and posterior osseous elements. There is no fracture. C2-3: Normal endplates. Normal disc height and morphology. Normal central canal and intervertebral neuroforamina. C3-4: Disc space narrowing. Endplate changes with mild spurring. No canal stenosis or foraminal encroachment. C4-5: Normal endplates. Normal disc height and morphology. Normal central canal and intervertebral neuroforamina. C5-6: Disc space narrowing. Endplate change with mild spurring. No canal stenosis or foraminal encroachment C6-7: Disc space narrowing with endplate changes. Disc bulge and spurring. Uncovertebral spurring with right foraminal narrowing. C7-T1: Normal endplates. Normal disc height and morphology. Normal central canal and intervertebral neuroforamina. Normal visualized soft tissue structures. CT/Spine Cervical without Contras IMPRESSION: Multilevel degenerative changes, as described above. Electronically Signed: Carlos Ye MD at 20:23 EST , Service support ,
[2017-04-13] MEDS: Haloperidol Lactate 5 MG/ML Vial 10 MG IM (19:20)
[2017-04-13] MEDS: LORazepam 2 MG/ML Syringe 1 MG IV (19:20)
[2017-04-13 19:26] LABS: Bacteria 0 SEEN /hpf (None Seen); Mucous, Urine 0 SEEN /hpf (<or=2+); Red Blood Cells-Urine 0 SEEN /hpf (0-5); Squamous Epithelial Cells - UA 0 SEEN /hpf (0-5); White Blood Cells 0 SEEN /hpf (0-5)
[2017-04-13 19:27] LABS: Absolute Lymphocyte Count 2.53 X10^3/ul (0.83-4.51); Absolute Neutrophil Count 3.4 X10^3/uL (2.0-7.7); Basophil# 0.11 X10^3/uL; Basophil% 1.6 % (0-1); Eosinophil# 0.26 X10^3/uL; Eosinophils% 3.8 % (0-5); Hematocrit 45.8 % (40-54); Hemoglobin 14.9 g/dl (13.0-16.5); Lymphocyte # 2.53 X10^3/ul (4.0); Lymphocyte % 37.1 % (19-41); Mean Corp Hgb Conc 32.5 g/gl (32-36); Mean Corpuscular Hgb 31.3 pg (27.0-32.0); Mean Corpuscular Volume 96.2 fL (80-94); Mean Platelet Vol. 10.6 fl (6.2-12.0); Monocyte# 0.49 X10^3/uL; Monocyte% 7.2 % (0-10); Neutrophil # 3.42 X10^3/uL (2.7-7.7); Neutrophil % 50.2 % (47-70); POSITIVE COUNT NO; POSITIVE DIFFERENTIAL NO; POSITIVE MORPHOLOGY NO; Platelet Count 274 K/mm3 (150-450); RBC Distribution Width CV 14.7 % (11.6-14.6); Red Blood Count 4.76 M/mm3 (4.6-6.2); White Blood Count 6.8 K/mm3 (4.4-11.0)
[2017-04-13 19:28] LABS: Color, Urine Yellow (Yellow); Glucose, Dipstick 250 mg/dl (Normal); Ketone-Dipstick Negative (Negative); Leukocyte Esterase-Dipstick Negative /ul (Negative); Nitrite-Dipstick Negative (Negative); Occult Blood-Urine Negative /ul (Negative); Protein-Dipstick 15 mg/dl (Negative); Specific Gravity, Urine 1.005 (1.002-1.030); Urine Bilirubin Dipstick Negative (Negative); Urine Clarity Sl. Cloudy (Clear); Urine Urobilinogen Normal (Normal)
[2017-04-13 19:41] LABS: ALB/GLOB Ratio 1.1 RATIO (0.9-2.4); AST(SGOT) 37 U/L (15-37); Alanine Aminotransfer ALT/SGPT 81 U/L (16-61); Albumin, Serum 4.2 g/dL (3.2-5.0); Alkaline Phosphatase 133 U/L (45-117); Anion Gap 6 (5-15); BUN 12 mg/dL (7-18); Calcium,Total 9.3 mg/dL (8.5-10.1); Chloride 105 mmol/L (98-107); EST Glomerular Filtration Rate 107 mL/min (>60); Est Glom Filt Rate - Afr Amer 129 mL/min (>60); Estimated Creatinine Clearance 98.69 ml/min; Globulin 3.9 g/dL (2.2-4.2); Glucose 177 mg/dL (74-106); Lipase 35 U/L (73-393); Potassium 3.5 mmol/L (3.5-5.1); Protein, Total 8.1 g/dL (6.4-8.2); Sodium Level 145 mmol/L (136-145)
--- NOTE | 2017-04-13 19:50 | RAD_ITS ---
STUDY: X-RAY CHEST REASON FOR EXAM: Male, 56 years old. Trauma. TECHNIQUE: Single AP portable view of the chest. COMPARISON: April 01, 2017. FINDINGS: Pacemaker device on the left is stable. There are monitoring devices. Left lower lung scarring or atelectasis is stable. There is no demonstrated pleural abnormality. Sternal cerclage wires are present from a prior sternotomy. Aortic valve replacement. Cardiac enlargement. Normal mediastinum and akbar. Normal visualized pulmonary arteries. Normal visualized aortic arch and descending thoracic aorta. Normal visualized thoracic spine. Normal visualized ribs, clavicles, and shoulders. Postoperative change in the right upper chest. There is no demonstrated abnormality of the visualized soft tissue structures of the upper abdomen. RAD/Chest 1 View (Portable) IMPRESSION: Degenerative changes, as described above. No demonstrated acute cardiopulmonary process. Electronically Signed: Carlos Ye MD at 20:25 EST , Service support ,
[2017-04-13 20:24] LABS: Amphetamine Urine VISTA NEGATIVE (<1000 ng/mL); Barbiturate Urine VISTA NEGATIVE (< 200 ng/mL); Benzodiazepine Urine VISTA NEGATIVE (< 200 ng/mL); Cocaine Urine VISTA NEGATIVE (< 300 ng/mL); Ecstacy Urine VISTA NEGATIVE (< 500 ng/mL); Methadone Urine VISTA NEGATIVE (< 300 ng/mL); PCP Urine VISTA NEGATIVE (< 25 ng/mL); THC Urine VISTA NEGATIVE (< 50 ng/mL); Vista UDS pH Range 6
--- NOTE | 2017-04-13 22:15 | ED.VISSUMM ---
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 He lives with her is 91-year-old father. Patient had bought a bottle of vodka. He drank it went to bed. He got up around noon and ate a little bit eventually went and bought more vodka. He was sitting outside of the steps when he fell over. Dad states he did not appear to injure himself but he was unable to get him up. The patient's son about a year to 2 years ago around this time from a drug overdose. Mom shortly before that. Patient has told numerous people including squad and nursing that he wanted to . Dad is aware of this.. He states that this happens whenever he is intoxicated. He is followed up with crisis before. Physical Examination: Afebrile vital signs are stable Gen: Well-nourished well-developed disheveled and smells heavily of alcohol Head: Normocephalic atraumatic Eyes: Perrl EOMI ENT: TMs clear no rhinorrhea moist mucous membranes Neck: Supple no lymphadenopathy no JVD nontender CVS: Regular rate rhythm no murmurs normal S1-S2 Respiratory: No distress clear to auscultation bilaterally chest nontender Abdomen: Soft nontender nondistended normal bowel sounds no masses Back: Nontender Extremity: Nontender no edema Skin: Normal color no rash Neuro: alert slurred speech and disorientated CN II-XII intact Psych: Patient is violent and aggressive. He has attempted to hit EMS and nursing. Patient is stating he wants to harm himself. Test Results: CT head and cervical spine were negative. Basic blood work negative. Alcohol 324 Emergency Department Course and Treatment: Due to the patient violent tendency he was placed in restraints. He received Ativan and Haldol. He will need to metabolize his alcohol in order to be cleared for crisis evaluation. Repeat alcohol level will be drawn at 0530 hours.. The patient will be checked out to Dr. Collier to reassess the patient after he is sober. Impression: 1. Alcohol intoxication 2. Depression This note was generated with [employer] dictation software. It may contain incorrect words, spelling, and punctuation that were not noted in review of the chart prior to signing <[place],Ezra - Last Filed: 04/14/17 01:10> - ER Visit Summary Date of Service: 04/14/17 Addendum: Patient was observed until his blood alcohol level was below 100. He was seen by the counseling center. They are familiar with him. He denies any suicidal or homicidal ideation. They did try to talk him into inpatient detox/rehab and he is refused this. He reports that he wants to go to [facility]. Treatment Plan: Patient will be discharged with instructions to follow-up with [facility] as soon as possible. Return to the emergency department for any thoughts of harming himself. Disposition: To home in improved and stable condition. Impression: 1. Alcohol intoxication. This note was generated with seedchangeation software. It may contain incorrect words, spelling, and punctuation that were not noted in review of the chart prior to signing <Jose Manuel Collier - Last Filed: 04/14/17 06:53> ED Disposition <Ezra Gonzalez - Last Filed: 04/14/17 01:10> <Jose Manuel Collier - Last Filed: 04/14/17 06:53> - Plan for ED Patient: Chief Complaint: ETOH Intox Instructions: ED Alcohol Intoxication Referrals: EIGHTY,ONE [STAFF PHYSICIAN] - As soon as possible
--- NOTE | 2017-04-13 22:15 | ED.RN ---
pt was previously removed from lower 2 restraints and at 2100 was removed from arm leather restraints. pt had been sleeping since given medications. at 2200 was found up in room wanting to smoke a cigarette. pulled out IV. pt cleaned up and assisted back to bed, and returned to sleeping. left out of restraints at this time, will monitor closely. pt sleeping soundly.
[2017-04-13 22:17] VITALS: BP 119/82; PULSE 60; RESP 18; O2SAT 96
--- NOTE | 2017-04-13 22:18 | ED.DCSUM_ITS ---
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 He lives with her is 91-year-old father. Patient had bought a bottle of vodka. He drank it went to bed. He got up around noon and ate a little bit eventually went and bought more vodka. He was sitting outside of the steps when he fell over. Dad states he did not appear to injure himself but he was unable to get him up. The patient's son about a year to 2 years ago around this time from a drug overdose. Mom shortly before that. Patient has told numerous people including squad and nursing that he wanted to . Dad is aware of this.. He states that this happens whenever he is intoxicated. He is followed up with crisis before. Physical Examination: Afebrile vital signs are stable Gen: Well-nourished well-developed disheveled and smells heavily of alcohol Head: Normocephalic atraumatic Eyes: Perrl EOMI ENT: TMs clear no rhinorrhea moist mucous membranes Neck: Supple no lymphadenopathy no JVD nontender CVS: Regular rate rhythm no murmurs normal S1-S2 Respiratory: No distress clear to auscultation bilaterally chest nontender Abdomen: Soft nontender nondistended normal bowel sounds no masses Back: Nontender Extremity: Nontender no edema Skin: Normal color no rash Neuro: alert slurred speech and disorientated CN II-XII intact Psych: Patient is violent and aggressive. He has attempted to hit EMS and nursing. Patient is stating he wants to harm himself. Test Results: CT head and cervical spine were negative. Basic blood work negative. Alcohol 324 Emergency Department Course and Treatment: Due to the patient violent tendency he was placed in restraints. He received Ativan and Haldol. He will need to metabolize his alcohol in order to be cleared for crisis evaluation. Repeat alcohol level will be drawn at 0530 hours.. The patient will be checked out to Dr. Collier to reassess the patient after he is sober. Impression: 1. Alcohol intoxication 2. Depression This note was generated with Etelos dictation software. It may contain incorrect words, spelling, and punctuation that were not noted in review of the chart prior to signing <Joslin,Ezra - Last Filed: 04/14/17 01:10> - ER Visit Summary Date of Service: 04/14/17 Addendum: Patient was observed until his blood alcohol level was below 100. He was seen by the counseling center. They are familiar with him. He denies any suicidal or homicidal ideation. They did try to talk him into inpatient detox/ rehab and he is refused this. He reports that he wants to go to [facility]. Treatment Plan: Patient will be discharged with instructions to follow-up with [facility] as soon as possible. Return to the emergency department for any thoughts of harming himself. Disposition: To home in improved and stable condition. Impression: 1. Alcohol intoxication. This note was generated with Sample[employer] Incation software. It may contain incorrect words, spelling, and punctuation that were not noted in review of the chart prior to signing <Jose Manuel Collier - Last Filed: 04/14/17 06:53> ED Disposition <Ezra Gonzalez - Last Filed: 04/14/17 01:10> <Jose Manuel Collier - Last Filed: 04/14/17 06:53> - Plan for ED Patient: Chief Complaint: ETOH Intox Instructions: ED Alcohol Intoxication Referrals: EIGHTY,ONE [STAFF PHYSICIAN] - As soon as possible
[2017-04-14] VITALS (9 sets, daily range): BP systolic 107–146; BP diastolic 68–93; PULSE 60–76; RESP 14–18; O2SAT 96–98
[2017-04-14 03:56] LABS: Bedside Glucose 121 mg/dL (70-110)
--- NOTE | 2017-04-14 06:59 | NURSING ---
FATHER NARENDRA NOTIFIED OF PT BEING D/C.
== END 2017-04-14 08:00 | disposition home or self-care (01) ==
PROVIDERS: Emergency Provider Emergency Medicine; Family Provider Family Medicine; PCP Family Medicine
DX: F10.129 Alcohol abuse with intoxication, unspecified (principal); Y90.9 Presence of alcohol in blood, level not specified; F32.9 Major depressive disorder, single episode, unspecified; Z78.1 Physical restraint status; I25.10 Atherosclerotic heart disease of native coronary artery without angina pectoris; E11.9 Type 2 diabetes mellitus without complications; I10 Essential (primary) hypertension; I49.5 Sick sinus syndrome; Z95.0 Presence of cardiac pacemaker; Z79.82 Long term (current) use of aspirin; Z79.4 Long term (current) use of insulin; Z79.899 Other long term (current) drug therapy; Z72.0 Tobacco use
CPT/HCPCS: 70450; 71045; 72125; 80053; 80307; 80320; 81001; 82962; 83690; 84484; 85025; 93005; 96372; 96374; 99285; J7030; A4216; G0480

== ENCOUNTER 2017-04-25 01:40 | Emergency (ER) | payer OTHER, SELFPAY ==
[2017-04-25] VITALS (8 sets, daily range): BP systolic 99–178; BP diastolic 68–111; PULSE 59–66; RESP 16–22; TEMP 35.6; O2SAT 96–98; BMI 23.2
--- NOTE | 2017-04-25 01:58 | ED.DCSUM_ITS ---
- ER Visit Summary Date of Service: 04/25/17 Chief Complaint: Acute alcohol intoxication History of Present Illness: The patient is a 56 M history of cardiac disease with prior open heart surgery and the left-sided pacemaker. Patient states he is diabetic. He is a history of alcohol abuse. He was seen here 3 days ago with similar. He had normal labs at that time. Other than being intoxicated. Patient is brought in tonight by the police he was combative to the police and staff and had to be put in four-point restraints. He denies any complaints and wants to go home. Physical Examination: Well-appearing middle-age male. Smells of alcohol. Vital signs are stable. He does not look septic or toxic. He is in no acute distress. H EENT exam unremarkable other than the smell of alcohol. No signs of trauma. Pupils are round reactive to light. Neck nontender. Trachea midline. Lungs clear to auscultation. Heart regular rhythm in the 60s. He has an old sternotomy incision is well-healed and a left-sided pacemaker. Chest wall is nontender. Abdomen soft and nontender. Normal bowel sounds no peritoneal signs. He is moving all 4 extremities. They are neurovascularly intact. They are nontender. No deformities. He is in 4 point restraints. Neurologically he is intoxicated but awake and alert and answering questions. No focal motor deficits. Test Results: None. BG T equals 169 Emergency Department Course and Treatment: Patient will remain in restraints for this time. He is acutely intoxicated. Will observe him overnight and I will reassess him. He has had labs done recently which were unremarkable I do not think there is any need to do additional labs tonight. Treatment Plan: Patient doing well at 05 03. We will observe him in the ER overnight and he will be discharged in the morning. Disposition: Discharge Impression: Acute alcohol intoxication with a history of alcoholism History of cardiac disease with prior open heart surgery and a pacemaker This note was generated with [employer] dictation software. It may contain incorrect words, spelling, and punctuation that were not noted in review of the chart prior to signing ED Disposition - Plan for ED Patient: Chief Complaint: ETOH Intox Referrals: Donna Pedroza MD [Primary Care Provider] -
[2017-04-25 02:16] LABS: Bedside Glucose 169 mg/dL (70-110)
--- NOTE | 2017-04-25 03:26 | ED.DEP ---
ED Disposition - Plan for ED Patient: Disposition: Home or Assisted Living Chief Complaint: ETOH Intox Instructions: ED Alcohol Intoxication Referrals: Donna Pedroza MD [Primary Care Provider] - As soon as possible Additional Instructions: Drink plenty of fluids today. Strongly consider alcohol detox or rehab and counseling.
--- NOTE | 2017-04-25 03:30 | ED.RN ---
Patient keeps screaming for assistance. Patient advised that he had to pee. Advised patient that he had to use a urinal and can not walk to the restroom because he is intoxicated and he must use the urinal. Patient upset and threw the urinal across the room at this time. Patient given the option to use the urinal only. Patient upset and verbally aggressive towards staff. Patient placed back in 4 point locked restraints at this time
--- NOTE | 2017-04-25 08:21 | ED.RN ---
pt ambulated out of department on his own. pt was offered to call for ride from family member and given discharge papers and pt refused both stating that he could get a ride from friend. pt belongings consisted of 3 lighters in pocket, shirt, pants, socks, and one shoe. pt asked about wallet and other shoe and those items were not located in room with pt, nor were belongings stored elsewhere in the department. pt exited department through ambulance bay doors and did not appear to be intoxicated at that time. father of pt called after departure for update. family member was informed of pt departure at that time.
== END 2017-04-25 08:28 | disposition home or self-care (01) ==
PROVIDERS: Emergency Provider Emergency Medicine; Family Provider Family Medicine; PCP Family Medicine
DX: F10.229 Alcohol dependence with intoxication, unspecified (principal); Y90.9 Presence of alcohol in blood, level not specified; I25.10 Atherosclerotic heart disease of native coronary artery without angina pectoris; E11.9 Type 2 diabetes mellitus without complications; I10 Essential (primary) hypertension; Z95.1 Presence of aortocoronary bypass graft; Z79.82 Long term (current) use of aspirin; Z79.4 Long term (current) use of insulin; Z79.899 Other long term (current) drug therapy; Z78.1 Physical restraint status; Z72.0 Tobacco use
CPT/HCPCS: 82962; 99285

== ENCOUNTER 2017-08-06 11:33 | Emergency (ER) | payer OTHER, SELFPAY ==
[2017-08-06 11:34] VITALS: BP 208/110; PULSE 60; RESP 15; TEMP 36.8; O2SAT 95; BMI 23.1
[2017-08-06 11:45] LABS: Bedside Glucose 163 mg/dL (70-110)
--- NOTE | 2017-08-06 11:55 | EKG12_ITS ---
Test Reason : CP Blood Pressure : / mmHG Vent. Rate : 060 BPM Atrial Rate : 060 BPM P-R Int : 180 ms QRS Dur : 126 ms QT Int : 444 ms P-R-T Axes : 013 -07 079 degrees QTc Int : 444 ms Atrial-paced rhythm Right bundle branch block Abnormal ECG Confirmed by ZHAO FRANCISCO, KETTY ([id number]), proposal editor BENJAMÍN JAVIER ([id number]) on 08/12/2017 3:09:46 PM Referred By: Confirmed By:KETTY CHURCHILL MD
--- NOTE | 2017-08-06 11:55 | RAD_ITS ---
STUDY: X-RAY CHEST REASON FOR EXAM: Male, 57 years old. Chest pain TECHNIQUE: Single AP portable view of the chest. COMPARISON: 04/13/2017 FINDINGS: Cardiac monitoring leads overlie the chest. Cardiac pacemaker is unchanged. There is linear scarring in the left lung base. There is hyperinflation of the upper lobes. There is no demonstrated pleural abnormality. Postoperative changes of aortic valve replacement are seen. Sternal wires are present. Normal mediastinum and akbar. Normal visualized pulmonary arteries. Normal visualized aortic arch and descending thoracic aorta. Normal visualized thoracic spine. Normal visualized ribs, clavicles, and shoulders. Surgical clips are seen within the right axilla. There is no demonstrated abnormality of the visualized soft tissue structures of the upper abdomen. RAD/Chest 1 View (Portable) IMPRESSION: Hyperinflation, with stable left basilar scarring. Postoperative changes of aortic valve replacement without significant change. Electronically Signed: Hardeep Burns DO at 12:22 EDT Tel , Service support ,
--- NOTE | 2017-08-06 12:03 | ED.VISSUMM ---
- ER Visit Summary Date of Service: 08/06/17 Chief Complaint: Palpitations History of Present Illness: The patient is a 57 M who states that when he woke this morning around 9 or 930. He states he drank very heavily last night. He does have alcoholism. He also has a pacemaker due to sick sinus syndrome as well as diabetes and hypertension. He is unsure if he took his medications this morning. States he has discomfort in his mid back and between her shoulder blades it is an ache is worse with movement and palpation. He also states that he must slept wrong last night because his left arm and left leg are aching. He notes that sometimes he has felt nauseated but not so much today. Physical Examination: 208/110 otherwise vital signs are stable. Gen: Well-nourished well-developed Head: Normocephalic atraumatic Eyes: Perrl EOMI ENT: TMs clear no rhinorrhea moist mucous membranes Neck: Supple no lymphadenopathy no JVD nontender CVS: Regular rate rhythm 2 out of 6 systolic murmur Respiratory: No distress clear to auscultation bilaterally chest nontender Abdomen: Soft nontender nondistended normal bowel sounds no masses Back: Nontender Extremity: Nontender no edema Skin: Normal color no rash Neuro: alert orientated ?3 CN II-XII intact normal strength sensation reflexes gait cerebellar Psych: Normal affect normal mood Test Results: Atrially paced rhythm at a rate of 60 without ectopy. CBC chemistries essentially negative except for glucose of 155. Magnesium 1.8. Troponin negative. Alcohol is 23. Chest x-ray negative. Normal mediastinal silhouette Emergency Department Course and Treatment: Patient has had no dysrhythmias on the monitor. He received his morning blood pressure medications and it is come down. Also gave an additional dose of clonidine. Patient was asked to follow-up with his doctors. He was asked to refrain from alcohol and seek help for that. Impression: 1. Palpitations 2. Alcoholism This note was generated with Optiant dictation software. It may contain incorrect words, spelling, and punctuation that were not noted in review of the chart prior to signing ED Disposition - Plan for ED Patient: Disposition: Home or Assisted Living Chief Complaint: Chest Pain Instructions: ED Palpitations Referrals: Donna Pedroza MD [STAFF PHYSICIAN] - As soon as possible Luciano Holland MD [STAFF PHYSICIAN] - As soon as possible
--- NOTE | 2017-08-06 12:08 | ED.DCSUM_ITS ---
- ER Visit Summary Date of Service: 08/06/17 Chief Complaint: Palpitations History of Present Illness: The patient is a 57 M who states that when he woke this morning around 9 or 930. He states he drank very heavily last night. He does have alcoholism. He also has a pacemaker due to sick sinus syndrome as well as diabetes and hypertension. He is unsure if he took his medications this morning. States he has discomfort in his mid back and between her shoulder blades it is an ache is worse with movement and palpation. He also states that he must slept wrong last night because his left arm and left leg are aching. He notes that sometimes he has felt nauseated but not so much today. Physical Examination: 208/110 otherwise vital signs are stable. Gen: Well-nourished well-developed Head: Normocephalic atraumatic Eyes: Perrl EOMI ENT: TMs clear no rhinorrhea moist mucous membranes Neck: Supple no lymphadenopathy no JVD nontender CVS: Regular rate rhythm 2 out of 6 systolic murmur Respiratory: No distress clear to auscultation bilaterally chest nontender Abdomen: Soft nontender nondistended normal bowel sounds no masses Back: Nontender Extremity: Nontender no edema Skin: Normal color no rash Neuro: alert orientated ?3 CN II-XII intact normal strength sensation reflexes gait cerebellar Psych: Normal affect normal mood Test Results: Atrially paced rhythm at a rate of 60 without ectopy. CBC chemistries essentially negative except for glucose of 155. Magnesium 1.8. Troponin negative. Alcohol is 23. Chest x-ray negative. Normal mediastinal silhouette Emergency Department Course and Treatment: Patient has had no dysrhythmias on the monitor. He received his morning blood pressure medications and it is come down. Also gave an additional dose of clonidine. Patient was asked to follow- up with his doctors. He was asked to refrain from alcohol and seek help for that. Impression: 1. Palpitations 2. Alcoholism This note was generated with [employer] dictation software. It may contain incorrect words, spelling, and punctuation that were not noted in review of the chart prior to signing ED Disposition - Plan for ED Patient: Disposition: Home or Assisted Living Chief Complaint: Chest Pain Instructions: ED Palpitations Referrals: Donna Pedroza MD [STAFF PHYSICIAN] - As soon as possible Luciano Holland MD [STAFF PHYSICIAN] - As soon as possible
[2017-08-06 12:09] LABS: Absolute Lymphocyte Count 1.46 X10^3/ul (0.83-4.51); Basophil# 0.07 X10^3/uL; Basophil% 0.9 % (0-1); Eosinophil# 0.16 X10^3/uL; Hemoglobin 13.7 g/dl (13.0-16.5); Lymphocyte # 1.46 X10^3/ul (4.0); Lymphocyte % 17.8 % (19-41); Mean Corp Hgb Conc 33.4 g/gl (32-36); Mean Corpuscular Hgb 30.7 pg (27.0-32.0); Mean Corpuscular Volume 91.9 fL (80-94); Mean Platelet Vol. 10.2 fl (6.2-12.0); Monocyte# 0.51 X10^3/uL; Monocyte% 6.2 % (0-10); Neutrophil # 5.99 X10^3/uL (2.7-7.7); POSITIVE COUNT NO; POSITIVE DIFFERENTIAL NO; POSITIVE MORPHOLOGY NO; Platelet Count 226 K/mm3 (150-450); RBC Distribution Width CV 14.2 % (11.6-14.6); RBC Distribution Width SD 47.8 fl (35.1-43.9); Red Blood Count 4.46 M/mm3 (4.6-6.2); White Blood Count 8.2 K/mm3 (4.4-11.0)
[2017-08-06] MEDS: Lisinopril 20 MG Tablet PO (12:16)
[2017-08-06] MEDS: Metoprolol Tartrate 100 MG Tablet PO (12:16)
[2017-08-06 12:17] VITALS: BP 172/128; PULSE 60; RESP 13; O2SAT 95
[2017-08-06 12:18] VITALS: O2SAT 96
[2017-08-06 12:43] LABS: AST(SGOT) 31 U/L (15-37); Alanine Aminotransfer ALT/SGPT 47 U/L (16-61); Albumin, Serum 3.7 g/dL (3.2-5.0); Alkaline Phosphatase 129 U/L (45-117); Anion Gap 12 (5-15); BUN 15 mg/dL (7-18); BUN/Creat Ratio 15.4 RATIO (10-20); Bilirubin, Direct 0.18 mg/dL (0.00-0.30); Calcium,Total 8.5 mg/dL (8.5-10.1); Chloride 106 mmol/L (98-107); Creatinine, Serum 0.97 mg/dL (0.70-1.30); EST Glomerular Filtration Rate 85 mL/min (>60); Est Glom Filt Rate - Afr Amer 103 mL/min (>60); Estimated Creatinine Clearance 91.65 ml/min; Globulin 3.5 g/dL (2.2-4.2); Glucose 155 mg/dL (74-106); Magnesium 1.8 mg/dL (1.6-2.6); Potassium 4.2 mmol/L (3.5-5.1); Protein, Total 7.2 g/dL (6.4-8.2); Sodium Level 143 mmol/L (136-145)
[2017-08-06 13:24] VITALS: BP 180/100; PULSE 60
[2017-08-06] MEDS: cloNIDine HCl 0.1 MG Tablet PO (13:40)
--- NOTE | 2017-08-06 13:42 | ED.RN ---
PT MEDICATED ORDERED AND PT REQUEST TO GO HOME. HE DOES NOT WISH TO REMAIN IN ER ANY LONGER AND CAN CONTINUE TO TAKE THE SAME MEDICATION AT HOME.
[2017-08-06 14:02] VITALS: BP 184/102
== END 2017-08-06 14:03 | disposition home or self-care (01) ==
PROVIDERS: Emergency Provider Emergency Medicine
DX: R00.2 Palpitations (principal); F10.20 Alcohol dependence, uncomplicated; Y90.9 Presence of alcohol in blood, level not specified; M54.9 Dorsalgia, unspecified; R51 Headache; R01.1 Cardiac murmur, unspecified; I45.10 Unspecified right bundle-branch block; I49.5 Sick sinus syndrome; E11.9 Type 2 diabetes mellitus without complications; I10 Essential (primary) hypertension; Z95.0 Presence of cardiac pacemaker; Z79.82 Long term (current) use of aspirin; Z79.4 Long term (current) use of insulin; Z79.899 Other long term (current) drug therapy; Z72.0 Tobacco use
CPT/HCPCS: 71045; 80048; 80076; 80320; 82962; 83735; 84484; 85025; 93005; 99284; A4216; G0480

== ENCOUNTER 2017-08-30 19:33 | Emergency (ER) | payer OTHER, SELFPAY ==
[2017-08-30 19:36] VITALS: BP 158/103; PULSE 60; RESP 17; TEMP 37.1; O2SAT 94; BMI 23.6
--- NOTE | 2017-08-30 19:42 | ED.RN ---
RN TRIED TO GET PT'S TEMPERATURE, PT GRABBED THERMOMETER AND TRIED TO BRAKE IT. PT IN FOLLOWING COMMANDS AND TRIED GETTING OUT OF BED AFTER REPEATEDLY BEING TOLD NOT TO BY THE OFFICERS.
[2017-08-30 19:48] VITALS: BP 189/97; PULSE 60; RESP 19; O2SAT 96
[2017-08-30 22:30] VITALS: RESP 16
[2017-08-30 23:00] VITALS: BP 169/96; PULSE 60; RESP 12; O2SAT 96
--- NOTE | 2017-08-30 23:52 | ED.DEP ---
ED Disposition - Plan for ED Patient: Disposition: [facility] Chief Complaint: ETOH Intox Instructions: ED Alcohol Intoxication Referrals: Donna Pedroza MD [Primary Care Provider] -
--- NOTE | 2017-08-30 23:53 | ED.DCSUM_ITS ---
- ER Visit Summary Date of Service: 08/30/17 Chief Complaint: Alcohol intoxication History of Present Illness: The patient is a 57 M who presents with alcohol intoxication. He is well known to this department. Initially history was very difficult to obtain as the patient was uncooperative and combative. Apparently he was found passed out on his porch intoxicated. Neighbors had called EMS. The patient became belligerent and violent when they attempted to evaluate him. Therefore he was brought here to the emergency department. He was combative towards nursing staff. Initially I was unable to obtain any further history. Physical Examination: Afebrile vitals stable Moist mucous membranes Heart regular rate and rhythm Lungs are clear to auscultation Abdomen soft Alert no focal or lateralizing neurological deficits Combative, agitated Test Results: Not indicated Emergency Department Course and Treatment: When I entered the room the patient was demanding to know how his father was doing. I saw his father in the emergency department last night and the patient was a visitor. I attempted to explain that he had been admitted and I am no longer caring for him so I not know any details of his care currently. The patient became angry at this and would refuse to answer any further questions. Given that he was violent and aggressive towards staff he had been placed in four-point leather restraints. He was monitored here in the emergency department. On reevaluation 3 hours later the patient is calm and cooperative. He apologized. He does admit to alcohol intoxication. Currently he has no complaints. He does believe he can call for a ride home. Patient will be discharged with a sober ride or observed here until clinically sober able to walk on his own. Treatment Plan: [] Disposition: Discharge Impression: Acute alcohol intoxication This note was generated with [employer] dictation software. It may contain incorrect words, spelling, and punctuation that were not noted in review of the chart prior to signing ED Disposition - Plan for ED Patient: Disposition: [facility] Chief Complaint: ETOH Intox Referrals: Donna Pedroza MD [Primary Care Provider] -
--- NOTE | 2017-08-30 23:53 | DCINST.ED_ITS ---
ED Disposition - Plan for ED Patient: Disposition: [facility] Chief Complaint: ETOH Intox Instructions: ED Alcohol Intoxication Referrals: Donna Pedroza MD [Primary Care Provider] -
--- NOTE | 2017-08-30 23:54 | ED.RN ---
restraints moved at 2345, dr. chun reassessed pt. dr. chun plans to discharge.
[2017-08-31 00:31] VITALS: BP 151/81; PULSE 60; RESP 22; O2SAT 93
[2017-08-31 02:25] VITALS: BP 156/89; PULSE 60; RESP 14; O2SAT 95
[2017-08-31 03:09] VITALS: BP 169/92; PULSE 60; RESP 19; O2SAT 95
[2017-08-31 05:00] VITALS: RESP 14
[2017-08-31 06:14] VITALS: BP 190/92; PULSE 62; RESP 14; O2SAT 95
[2017-08-31 08:07] VITALS: BP 195/98; PULSE 74; RESP 16; O2SAT 100
--- NOTE | 2017-08-31 08:09 | ED.RN ---
moi rn/charge arranged taxi home fpr pt.
[2017-08-31 11:46] LABS: Bedside Glucose 316 mg/dL (70-110)
== END 2017-08-31 08:09 | disposition designated cancer center or children's hospital (05) ==
LOC: ED 21:12
PROVIDERS: Emergency Provider Emergency Medicine; PCP Family Medicine
DX: F10.129 Alcohol abuse with intoxication, unspecified (principal); Y90.9 Presence of alcohol in blood, level not specified; Z78.1 Physical restraint status; E11.9 Type 2 diabetes mellitus without complications; I10 Essential (primary) hypertension; E78.00 Pure hypercholesterolemia, unspecified; Z79.82 Long term (current) use of aspirin; Z79.4 Long term (current) use of insulin; Z79.899 Other long term (current) drug therapy
CPT/HCPCS: 82962; 99284

== ENCOUNTER 2017-09-01 18:49 | Inpatient (IN) | payer OTHER, SELFPAY ==
[2017-09-01 19:02] VITALS: BP 131/92; PULSE 60; RESP 20; TEMP 36.6; O2SAT 96; BMI 22.7
[2017-09-01 20:11] VITALS: BP 92/56; PULSE 60; RESP 20; O2SAT 96
[2017-09-01 20:50] LABS: Bedside Glucose 125 mg/dL (70-110)
[2017-09-01 21:15] VITALS: BP 111/75; PULSE 60; RESP 19; O2SAT 95
[2017-09-01 22:00] VITALS: BP 120/73; PULSE 60; RESP 15; O2SAT 94
--- NOTE | 2017-09-01 22:30 | ED.RN ---
PT GIVES THIS RN VERBAL PERMISSION TO SHARE MEDICAL INFORMATION WITH DAUGHTER CHRIS, AND COUSIN MATEO. CHRIS AND MATEO CALLED INTO ED WITH CONCERN FOR PT WELL BEING. MATEO HOWARD-PT COUSIN- PHONE NUMBER IS [phone]. CHRIS TALLEY-PT DAUGHTER- PHONE NUMBER IS [phone]. THEY GARIMA CONCERN ABOUT WANTING PT TO BE ADMITTED FOR REHAB/ALCOHOL WITHDRAWL. THIS RN EXPLAINED PROCESS TO FAMILY, EXPLAINING THAT PT HAS TO BE SOBER AND MEET ADMISSION CRITERIA. THIS PROCESS IS EXPLAINED WITH PT WELL.
--- NOTE | 2017-09-01 22:34 | ED.RN ---
PT RESTRAINTS D/C AT 2230. PT COOPERATIVE AT THIS TIME. RESTING COMFORTABLY. BLANKET GIVEN.
--- NOTE | 2017-09-01 22:52 | ED.VISSUMM ---
- ER Visit Summary Date of Service: 09/01/17 Chief Complaint: Alcohol intoxication History of Present Illness: The patient is a 57 M who presents with alcohol intoxication. He has been drinking all day today. He has a history of this in the past. He was found in his yard unresponsive by family members. They called EMS. Patient was becoming slightly belligerent with EMS but he was able to be redirected by voice. Physical Examination: Vital signs reviewed. HEENT exam unremarkable. Heart is regular rate and rhythm without murmurs. Lungs are clear to auscultation. Abdomen is soft and nontender. Extremities reveal no edema. Skin exam normal. Neurologic exam normal. She is intoxicated Test Results: Alcohol level of 281 Emergency Department Course and Treatment: Patient had to be put in leather restraints because he was trying to climb out of bed and could hurt himself or staff. He was able to be slowly removed from the restraints. He will metabolizes alcohol then will be reevaluated and discharged home Treatment Plan: [] Disposition: Discharge Impression: Alcohol intoxication This note was generated with [employer] dictation software. It may contain incorrect words, spelling, and punctuation that were not noted in review of the chart prior to signing ED Disposition - Plan for ED Patient: Chief Complaint: Substance Abuse Referrals: Care Physician,No Primary [Primary Care Provider] -
--- NOTE | 2017-09-01 22:53 | ED.DEP ---
ED Disposition - Plan for ED Patient: Disposition: Home or Assisted Living Chief Complaint: Substance Abuse Instructions: ED Alcohol Abuse Referrals: Care Physician,No Primary [Primary Care Provider] -
[2017-09-01 23:09] VITALS: BP 92/62; PULSE 60; RESP 14; O2SAT 93
[2017-09-02] VITALS (21 sets, daily range): BP systolic 94–195; BP diastolic 67–111; PULSE 60–68; RESP 13–18; TEMP 36.7–37.1; O2SAT 92–99; BMI 22.7; BMI 22.8
[2017-09-02 07:24] LABS: Absolute Lymphocyte Count 1.68 X10^3/ul (0.83-4.51); Absolute Neutrophil Count 3.8 X10^3/uL (2.0-7.7); Basophil# 0.06 X10^3/uL; Eosinophil# 0.13 X10^3/uL; Eosinophils% 2.1 % (0-5); Hematocrit 42.1 % (40-54); Hemoglobin 14.7 g/dl (13.0-16.5); Lymphocyte # 1.68 X10^3/ul (4.0); Lymphocyte % 26.8 % (19-41); Mean Corp Hgb Conc 34.9 g/gl (32-36); Mean Corpuscular Hgb 31.5 pg (27.0-32.0); Mean Corpuscular Volume 90.1 fL (80-94); Mean Platelet Vol. 10.4 fl (6.2-12.0); Monocyte# 0.57 X10^3/uL; Monocyte% 9.1 % (0-10); Neutrophil # 3.83 X10^3/uL (2.7-7.7); Neutrophil % 60.8 % (47-70); Platelet Count 233 K/mm3 (150-450); RBC Distribution Width CV 13.9 % (11.6-14.6); RBC Distribution Width SD 45.8 fl (35.1-43.9); Red Blood Count 4.67 M/mm3 (4.6-6.2); White Blood Count 6.3 K/mm3 (4.4-11.0)
[2017-09-02 07:25] LABS: POSITIVE COUNT NO; POSITIVE DIFFERENTIAL NO; POSITIVE MORPHOLOGY NO
[2017-09-02 07:35] LABS: Anion Gap 8 (5-15); BUN 12 mg/dL (7-18); Calcium,Total 8.9 mg/dL (8.5-10.1); Chloride 102 mmol/L (98-107); Creatinine, Serum 1.09 mg/dL (0.70-1.30); EST Glomerular Filtration Rate 75 mL/min (>60); Est Glom Filt Rate - Afr Amer 90 mL/min (>60); Estimated Creatinine Clearance 80.15 ml/min; Glucose 225 mg/dL (74-106); Potassium 3.3 mmol/L (3.5-5.1); Sodium Level 142 mmol/L (136-145)
--- NOTE | 2017-09-02 08:04 | ED.RN ---
JAILYN WITH [facility] CALLED WITH PATIENT REQUEST TO BE EVALUATED.
--- NOTE | 2017-09-02 08:11 | NURSING ---
[facility] IN ROOM WITH PATIENT
[2017-09-02 08:18] LABS: Amphetamine Urine VISTA NEGATIVE (<1000 ng/mL); Barbiturate Urine VISTA NEGATIVE (< 200 ng/mL); Benzodiazepine Urine VISTA NEGATIVE (< 200 ng/mL); Cocaine Urine VISTA NEGATIVE (< 300 ng/mL); Ecstacy Urine VISTA NEGATIVE (< 500 ng/mL); Methadone Urine VISTA NEGATIVE (< 300 ng/mL); PCP Urine VISTA NEGATIVE (< 25 ng/mL); THC Urine VISTA NEGATIVE (< 50 ng/mL); Vista UDS pH Range 6
[2017-09-02] MEDS: Aspirin 81 MG TAB.CHEW PO (09:06)
[2017-09-02] MEDS: Acetaminophen 500 MG Tablet 1000 MG PO (09:06)
[2017-09-02] MEDS: FLUoxetine 20 MG Capsule 40 MG PO (09:06)
[2017-09-02] MEDS: Lisinopril 20 MG Tablet PO (09:06)
[2017-09-02] MEDS: Metoprolol Tartrate 100 MG Tablet PO ×2 (09:10→22:28)
--- NOTE | 2017-09-02 10:48 | NURSING ---
DR OCAMPO FOR DR CHRISTY
[2017-09-02] MEDS: LORazepam 2 MG/ML Syringe IV (10:53)
--- NOTE | 2017-09-02 10:56 | NURSING ---
DR OCAMPO IN WITH PATIENT
--- NOTE | 2017-09-02 11:12 | NURSING ---
MED SURG ACUTE ALCOHOL WITHDRAWAL TERRENCE
--- NOTE | 2017-09-02 11:19 | HP.PCM_ITS ---
Problem List (1) Pacemaker Status: Chronic (2) Sick sinus syndrome Status: Chronic (3) Diabetes mellitus, type II Status: Chronic Qualifiers: (4) HTN (hypertension) Status: Chronic Qualifiers: (5) Tobacco use Status: Chronic (6) Aortic aneurysm Status: Chronic (7) H/O aortic valve replacement Status: Chronic History of Present Illness Date of Admission: 09/02/17 Chief Complaint: Alcohol withdrawal The patient is a 57 year old M with past medical history as mentioned above who was presented to the emergency room yesterday evening because of alcohol intoxication. At this time, patient is alert and oriented ?3. He mentioned that his last drink was yesterday just before he came in. He has been drinking 1/5 of vodka every day for the last couple of weeks. Recently, he was started on Vivitrol injections monthly by Dr. Muller according to the patient. He continued to drink alcohol every day. When he was admitted yesterday, he was intoxicated, blood alcohol level was 281. When patient presented to the ED, requested admission for detoxification but he is known of changing his mind once he is sober. He was observed until clinically stabilized and he did continue to state that he wants to be admitted for alcohol detoxification. He was evaluated by a new patient this morning and patient will need insurance preauthorization for admission for alcohol detoxification. While patient waiting, he became increasingly hypertensive, tremulous and restless and complained of nausea. At this time, patient mentioned that he started having crawling sensation on his entire body, felt anxious, restless and complained of nausea. His blood pressure has been increasingly elevated. He is not tachycardic but he has been on high dose of metoprolol. He has a history of type 2 diabetes mellitus, has been on Levemir insulin twice daily and apparently , his blood sugar has not been well controlled. Patient mentioned that his blood sugars usually in the 400s. His hemoglobin A1c was 11 back in Jun, 2016. He has a history of congenital aortic aneurysm status post repair ?2. He has a history of aortic valve replacement with bioprosthetic valve and not sure why he had that valve replacement. He has a history of hypertension he has been on lisinopril and metoprolol. At this time, his blood pressure is elevated, afebrile, no tachycardia, pulse ox is maintained on room air. His routine blood work is remarkable for potassium of 3.3, otherwise normal. His urine drug screen was negative. He received 2 doses of IV Ativan this morning in the ED. He is being admitted for alcohol withdrawal for stabilization. 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) Sick sinus syndrome (Chronic) Diabetes mellitus, type II (Chronic) HTN (hypertension) (Chronic) Tobacco use (Chronic) Aortic aneurysm (Chronic) H/O aortic valve replacement (Chronic) Allergies No Known Allergies Allergy (Verified 08/30/17 19:42) Home Medications: Ambulatory Orders Medication Instructions Recorded Insulin Detemir [Levemir] 25 units SC BID 06/20/16 Lisinopril [Zestril] 20 mg PO DAILY 06/20/16 Metoprolol Tartrate 100 mg PO BID 06/20/16 Acetaminophen [Tylenol Tablet] 500 mg PO Q6H PRN PRN tablet 04/02/17 Aspirin [Aspirin, Baby] 81 mg PO DAILY@0800 04/02/17 Atorvastatin Calcium [Lipitor] 40 mg PO QHS 04/02/17 Fluoxetine HCl [Prozac] 40 mg PO DAILY 04/02/17 Naltrexone Microspheres [Vivitrol] 1 injectable IM QMONTH 09/02/17 Surgical History: - - Aortic aneurysm repair and aortic valve replacement ( bovine) with total 3 separate surgies, most recent 04/2016 [facility], R inguinal hernia repair. Psychiatric History: No pertinent psych hx Smoking Status: Current every day smoker Alcohol: Heavy Drugs: None - *Family History Maternal History Items: Dementia Paternal History Items: Heart Disease Review of Systems Constitutional: Denies: Anorexia, Chills, Fever, Weakness Eyes: Denies: Blurred vision, Double vision, Drainage, Redness HEENT: Denies: Difficulty Hearing, Ear Pain, Eye Pain, Nasal Congestion, Sore Throat Cardiovascular: Denies: Chest Pain, Chest Tightness, Heaviness, Light Headedness , Palpitations, Syncope Respiratory: Denies: Cough, Pleuritic Pain, Shortness of Breath, Sputum production, Wheezing Gastrointestinal: Reports: Nausea. Denies: Abdominal Pain, Constipation, Diarrhea, Vomiting Genitourinary: Denies: Dysuria, Frequency, Hematuria Musculoskeletal: Reports: Muscle pain. Denies: Arm Pain, Back Pain, Foot Pain Skin: Denies: Dryness, Rash Neurological: Denies: Balance problems, Double vision, Change in Speech, Slurred speech, Confusion, Focal weakness, Headaches, Numbness, Tingling Psychiatric: Reports: Anxiety. Denies: Depression Endocrine: Denies: Change in Body Habitus, Polydipsia VTE Information - Inpt Only VTE Present on Admission: No VTE Mechan Device Prophylaxis: None VTE Pharm Prophylaxis ordered?: No - Physical Exam General: Alert, Oriented x3, Cooperative, - HEENT: Atraumatic, PERRLA, EOMI, Normocephalic Oral: Moist Mucosa, No Gingival or Mucosal Lesions/ Ulcerations Neck: Supple, No JVD, Negative Carotid Bruits, Trachea Midline, Thyroid Normal Size and Texture Lungs: Clear to auscultation, Normal air movement, No rhonchi, No wheeze, No rales, Diminished Cardiovascular: Regular rate, Regular Rhythm, Normal S1, Normal S2, PMI Normal Abdomen: Bowel Sounds Present, Soft, Non Tender, Non-Distended, No Hepato- splenomegaly Extremities: No clubbing, No cyanosis, No edema Skin: No rashes, No breakdown Lymphatic: No Cervical, Supraclavicular, or Inguinal Adenopathy Neurological: Cranial nerves II-XII grossly intact, Motor Exam 5/5 strength throughout Psych/Mental Status: Normal Affect, Appropriate, Alert and oriented to time, place, person, mood and affect Vital Signs Temp Pulse Resp BP Pulse Ox 97.8 F 60 14 156/89 H 96 09/01/17 19:02 09/02/17 11:01 09/02/17 11:01 09/02/17 11:01 09/02/17 11:01 Oxygen Flow Rate (L/min) 2 Oxygen Delivery Method Nasal Cannula Weight: 163 lb 2.273 oz Body Mass Index (BMI) 22.7 Finger Stick Blood Glucose 125 Laboratory Tests Past 24 Hrs 09/01/17 09/02/17 09/02/17 20:40 07:15 07:15 WBC 6.3 RBC 4.67 Hgb 14.7 Hct 42.1 MCV 90.1 MCH 31.5 MCHC 34.9 RDW 13.9 RDW Differential 45.8 H Plt Count 233 MPV 10.4 Immature Gran % (Auto) 0.200 Neut % (Auto) 60.8 Lymph % (Auto) 26.8 Haywood % (Auto) 9.1 Eos % (Auto) 2.1 Baso % (Auto) 1.0 Absolute Neuts (auto) 3.8 Absolute Lymphs (auto) 1.68 Total Counted Not Reportable Sodium 142 Potassium 3.3 L Chloride 102 Carbon Dioxide 32.0 Anion Gap 8 BUN 12 Creatinine 1.09 Estim Creat Clear Calc 80.15 Est GFR (MDRD) Af Amer 90 Est GFR (MDRD) Non-Af 75 BUN/Creatinine Ratio 11.0 Glucose 225 H Calcium 8.9 Urine Opiates Screen Urine Methadone Screen Ur Barbiturates Screen Ur Phencyclidine Scrn Ur Amphetamines Screen U Methamphetamin-MDMA U Benzodiazepines Scrn Urine Cocaine Screen U Cannabinoids Screen Ur Drug Screen Comment Ethyl Alcohol 281.0 09/02/17 08:00 WBC RBC Hgb Hct MCV MCH MCHC RDW RDW Differential Plt Count MPV Immature Gran % (Auto) Neut % (Auto) Lymph % (Auto) Haywood % (Auto) Eos % (Auto) Baso % (Auto) Absolute Neuts (auto) Absolute Lymphs (auto) Total Counted Sodium Potassium Chloride Carbon Dioxide Anion Gap BUN Creatinine Estim Creat Clear Calc Est GFR (MDRD) Af Amer Est GFR (MDRD) Non-Af BUN/Creatinine Ratio Glucose Calcium Urine Opiates Screen NEGATIVE Urine Methadone Screen NEGATIVE Ur Barbiturates Screen NEGATIVE Ur Phencyclidine Scrn NEGATIVE Ur Amphetamines Screen NEGATIVE U Methamphetamin-MDMA NEGATIVE U Benzodiazepines Scrn NEGATIVE Urine Cocaine Screen NEGATIVE U Cannabinoids Screen NEGATIVE Ur Drug Screen Comment Ethyl Alcohol POC Glucose 09/01/17 20:46 POC Glucose 125 H Assessment/Plan This is a 57 years old male patient presented to the emergency room yesterday because of alcohol intoxication, requested admission for alcohol detoxification , found to have blood alcohol level of 281 and because he is known to change his mind in terms of admission for detoxification, he was observed until he became sober and again stated that he wanted to be admitted for detoxification. While he is awaiting for insurance preauthorization, patient became anxious, restless, tremulous and his blood pressure went up to 190 systolic, found to be in acute withdrawal and he is being admitted for stabilization. #1 acute alcohol withdrawal: At this time, he is hypertensive but not tachycardic because he has been on high doses of metoprolol. He received 2 doses of IV Ativan in the ER, felt better but still little anxious and restless. Routine blood work reviewed, remarkable for mild hypokalemia, otherwise normal. Urine drug screen is negative. Plan: Admit to [facility] floor , cardiac monitoring, start folic acid and thiamine supplement, multivitamins, as needed Ativan, as needed Vistaril, methocarbamol and and Bentyl, routine EKG. #2 hypokalemia: Replace potassium with oral K Dur. #3 type 2 diabetes mellitus: According to the patient, his blood sugar is not well controlled. Plan for ADA diet, Accu-Cheks, insulin sliding scale, continue on Levemir insulin twice daily. #4 history of congenital aortic aneurysm: Status post repair ?2, stable. #5 status post aortic valve replacement with bioprosthetic valve: Stable, no acute issues. #6 sick sinus syndrome status post pacemaker: Heart rate stable, plan to continue metoprolol, routine EKG. #7 hypertension: Blood pressure is elevated at this time. Plan to continue lisinopril and metoprolol. #8 alcohol abuse: Plan as above. #9 DVT prophylaxis: Low risk patient, ambulate. This note was generated with [employer] dictation software. It may contain incorrect words, spelling, and punctuation that were not noted in checking the note before signing. Code Visit Inpatient E&M: 42493 Init Hosp L3
--- NOTE | 2017-09-02 11:43 | EKG12_ITS ---
Test Reason : Blood Pressure : / mmHG Vent. Rate : 060 BPM Atrial Rate : 060 BPM P-R Int : 166 ms QRS Dur : 132 ms QT Int : 470 ms P-R-T Axes : 072 000 246 degrees QTc Int : 470 ms Atrial-paced rhythm Right bundle branch block T wave abnormality, consider lateral ischemia Abnormal ECG Confirmed by MIMI FRANCISCO, TRISH ([id number]), associate entertainment editor BENJAMÍN JAVIER ([id number] on 09/13/2017 4:06:28 PM Referred By: TERRENCE Confirmed By:TRISH LE MD
[2017-09-02] MEDS: LORazepam 1 MG Tablet PO ×3 (12:07→20:02)
[2017-09-02 12:15] LABS: Bedside Glucose 385 mg/dL (70-110)
[2017-09-02] MEDS: Insulin Lispro 100 UNIT/ML INSULN.PEN SC ×3 (13:26→22:27)
[2017-09-02 16:36] LABS: Bedside Glucose 322 mg/dL (70-110)
[2017-09-02] MEDS: Atorvastatin Calcium 40 MG Tablet PO (22:28)
[2017-09-02] MEDS: Acetaminophen 325 MG Tablet 650 MG PO (22:29)
[2017-09-02 22:40] LABS: Bedside Glucose 346 mg/dL (70-110)
[2017-09-03] VITALS (17 sets, daily range): BP systolic 132–163; BP diastolic 72–114; PULSE 59–60; RESP 16–18; TEMP 36.4–37.1; O2SAT 96–99
[2017-09-03] MEDS: LORazepam 1 MG Tablet PO ×5 (00:47→20:50)
--- NOTE | 2017-09-03 04:23 | NURSING ---
Patient stated he felt dizzy so this RN decided to check his blood sugar. Blood sugar only 66. Snacks and orange juice gotten for pt. will recheck blood sugar.
[2017-09-03 05:06] LABS: Bedside Glucose 66 mg/dL (70-110)
[2017-09-03 05:06] LABS: Bedside Glucose 105 mg/dL (70-110)
[2017-09-03 06:56] LABS: Bedside Glucose 125 mg/dL (70-110)
[2017-09-03] MEDS: Thiamine Hydrochloride 100 MG Tablet PO (08:29)
[2017-09-03] MEDS: Folic Acid 1 MG Tablet PO (08:29)
[2017-09-03] MEDS: Multivitamins,Therapeutic Tablet 1 TABLET PO (08:29)
[2017-09-03] MEDS: Aspirin 81 MG TAB.CHEW PO (08:31)
[2017-09-03] MEDS: Lisinopril 20 MG Tablet PO (08:31)
[2017-09-03] MEDS: FLUoxetine 20 MG Capsule 40 MG PO (08:31)
[2017-09-03] MEDS: Metoprolol Tartrate 100 MG Tablet PO ×2 (08:32→21:00)
--- NOTE | 2017-09-03 08:36 | PCM.PROGNOTE ---
Subjective: Chief complaint: Follow-up after admission for acute alcohol withdrawal. Patient seen and examined. No acute events overnight. Shakiness and restlessness has been improving but still there. All over, patient is feeling better. His vital signs are stable. - Physical Exam General: Alert, Oriented x3, Cooperative, No apparent distress HEENT: Atraumatic, PERRLA, EOMI, Normocephalic Oral: Moist Mucosa, No Gingival or Mucosal Lesions/ Ulcerations Neck: Supple, No JVD, Negative Carotid Bruits, Trachea Midline, Thyroid Normal Size and Texture Lungs: Clear to auscultation, No rhonchi, No wheeze, No rales, Diminished Cardiovascular: Regular rate, Regular Rhythm, Normal S1, Normal S2, PMI Normal Abdomen: Bowel Sounds Present, Soft, Non Tender, Non-Distended, No Hepato-splenomegaly Extremities: No clubbing, No cyanosis, No edema Skin: No rashes, No breakdown Lymphatic: No Cervical, Supraclavicular, or Inguinal Adenopathy Neurological: Cranial nerves II-XII grossly intact, Motor Exam 5/5 strength throughout Psych/Mental Status: Normal Affect, Appropriate, Alert and oriented to time, place, person, mood and affect Vital Signs Temp Pulse Resp BP Pulse Ox 98.7 F 60 16 135/83 H 97 09/03/17 04:13 09/03/17 08:32 09/03/17 04:13 09/03/17 04:13 09/03/17 04:13 Oxygen Flow Rate (L/min) 1.5 Oxygen Delivery Method Room Air Weight: 163 lb 2.273 oz Body Mass Index (BMI) 22.7 Intake and Output for Last 24 Hours 09/01/17 09/02/17 09/03/17 23:59 23:59 23:59 Intake Total 600 / 600 640 / 640 Balance 600 / 600 640 / 640 POC Glucose 09/03/17 09/03/17 09/03/17 06:47 05:01 04:22 POC Glucose 125 H 105 66 L 09/02/17 09/02/17 09/02/17 22:21 16:31 12:09 POC Glucose 346 H 322 H 385 H Medical Necessity - Tobacco Use Smoking Status: Current every day smoker Tobacco Use: Cigarettes Assessment/Plan This is a 57 years old male patient presented to the emergency room yesterday because of alcohol intoxication, requested admission for alcohol detoxification, found to have blood alcohol level of 281 and because he is known to change his mind in terms of admission for detoxification, he was observed until he became sober and again stated that he wanted to be admitted for detoxification. While he is awaiting for insurance preauthorization, patient became anxious, restless, tremulous and his blood pressure went up to 190 systolic, found to be in acute withdrawal and he is being admitted for stabilization. #1 acute alcohol withdrawal: He is on Ativan as needed, thiamine, folic acid, multivitamins. Patient reported marked improvement. Vital signs stable. Urine drug screen is negative. Plan to continue same treatment. #2 hypokalemia: Potassium replaced and corrected. #3 type 2 diabetes mellitus: Continue ADA diet, Accu-Cheks, insulin sliding scale, continue on Levemir insulin twice daily. #4 history of congenital aortic aneurysm: Status post repair ?2, stable. #5 status post aortic valve replacement with bioprosthetic valve: Stable, no acute issues. #6 sick sinus syndrome status post pacemaker: Heart rate stable, plan to continue metoprolol, routine EKG. #7 hypertension: Blood pressure is elevated at this time. Plan to continue lisinopril and metoprolol. #8 alcohol abuse: Plan as above. #9 DVT prophylaxis: Low risk patient, ambulate. This note was generated with [employer] dictation software. It may contain incorrect words, spelling, and punctuation that were not noted in checking the note before signing. Code Visit Inpatient E&M: 22647 Subs Hosp L2
--- NOTE | 2017-09-03 08:41 | PN_ITS ---
Subjective: Chief complaint: Follow-up after admission for acute alcohol withdrawal. Patient seen and examined. No acute events overnight. Shakiness and restlessness has been improving but still there. All over, patient is feeling better. His vital signs are stable. - Physical Exam General: Alert, Oriented x3, Cooperative, No apparent distress HEENT: Atraumatic, PERRLA, EOMI, Normocephalic Oral: Moist Mucosa, No Gingival or Mucosal Lesions/ Ulcerations Neck: Supple, No JVD, Negative Carotid Bruits, Trachea Midline, Thyroid Normal Size and Texture Lungs: Clear to auscultation, No rhonchi, No wheeze, No rales, Diminished Cardiovascular: Regular rate, Regular Rhythm, Normal S1, Normal S2, PMI Normal Abdomen: Bowel Sounds Present, Soft, Non Tender, Non-Distended, No Hepato- splenomegaly Extremities: No clubbing, No cyanosis, No edema Skin: No rashes, No breakdown Lymphatic: No Cervical, Supraclavicular, or Inguinal Adenopathy Neurological: Cranial nerves II-XII grossly intact, Motor Exam 5/5 strength throughout Psych/Mental Status: Normal Affect, Appropriate, Alert and oriented to time, place, person, mood and affect Vital Signs Temp Pulse Resp BP Pulse Ox 98.7 F 60 16 135/83 H 97 09/03/17 04:13 09/03/17 08:32 09/03/17 04:13 09/03/17 04:13 09/03/17 04:13 Oxygen Flow Rate (L/min) 1.5 Oxygen Delivery Method Room Air Weight: 163 lb 2.273 oz Body Mass Index (BMI) 22.7 Intake and Output for Last 24 Hours 09/01/17 09/02/17 09/03/17 23:59 23:59 23:59 Intake Total 600 / 600 640 / 640 Balance 600 / 600 640 / 640 POC Glucose 09/03/17 09/03/17 09/03/17 06:47 05:01 04:22 POC Glucose 125 H 105 66 L 09/02/17 09/02/17 09/02/17 22:21 16:31 12:09 POC Glucose 346 H 322 H 385 H Medical Necessity - Tobacco Use Smoking Status: Current every day smoker Tobacco Use: Cigarettes Assessment/Plan This is a 57 years old male patient presented to the emergency room yesterday because of alcohol intoxication, requested admission for alcohol detoxification , found to have blood alcohol level of 281 and because he is known to change his mind in terms of admission for detoxification, he was observed until he became sober and again stated that he wanted to be admitted for detoxification. While he is awaiting for insurance preauthorization, patient became anxious, restless, tremulous and his blood pressure went up to 190 systolic, found to be in acute withdrawal and he is being admitted for stabilization. #1 acute alcohol withdrawal: He is on Ativan as needed, thiamine, folic acid, multivitamins. Patient reported marked improvement. Vital signs stable. Urine drug screen is negative. Plan to continue same treatment. #2 hypokalemia: Potassium replaced and corrected. #3 type 2 diabetes mellitus: Continue ADA diet, Accu-Cheks, insulin sliding scale, continue on Levemir insulin twice daily. #4 history of congenital aortic aneurysm: Status post repair ?2, stable. #5 status post aortic valve replacement with bioprosthetic valve: Stable, no acute issues. #6 sick sinus syndrome status post pacemaker: Heart rate stable, plan to continue metoprolol, routine EKG. #7 hypertension: Blood pressure is elevated at this time. Plan to continue lisinopril and metoprolol. #8 alcohol abuse: Plan as above. #9 DVT prophylaxis: Low risk patient, ambulate. This note was generated with [employer] dictation software. It may contain incorrect words, spelling, and punctuation that were not noted in checking the note before signing. Code Visit Inpatient E&M: 44211 Subs Hosp L2
[2017-09-03] MEDS: Insulin Lispro 100 UNIT/ML INSULN.PEN SC ×2 (11:20→21:01)
[2017-09-03 11:25] LABS: Bedside Glucose 163 mg/dL (70-110)
[2017-09-03 16:50] LABS: Bedside Glucose 146 mg/dL (70-110)
[2017-09-03] MEDS: Atorvastatin Calcium 40 MG Tablet PO (21:00)
[2017-09-03 21:01] LABS: Bedside Glucose 243 mg/dL (70-110)
[2017-09-04] VITALS (12 sets, daily range): BP systolic 132–174; BP diastolic 78–103; PULSE 59–60; RESP 16–18; TEMP 36.3–37.1; O2SAT 96–100
[2017-09-04] MEDS: LORazepam 1 MG Tablet PO ×3 (02:24→15:50)
[2017-09-04 06:55] LABS: Bedside Glucose 192 mg/dL (70-110)
--- NOTE | 2017-09-04 08:44 | PCM.PROGNOTE ---
Subjective: Chief complaint: Follow-up after admission for acute alcohol withdrawal. Patient seen and examined. No acute events overnight. He is doing fine, no specific complaints. He mentioned that shakiness and restlessness is getting better. When I asked the patient if he can go home today and staying up with Denys, he replied I would like to stay 1 more day to be sure. His vitals are stable. - Physical Exam General: Alert, Oriented x3, Cooperative, No apparent distress HEENT: Atraumatic, PERRLA, EOMI, Normocephalic Oral: Moist Mucosa, No Gingival or Mucosal Lesions/ Ulcerations Neck: Supple, No JVD, Negative Carotid Bruits, Trachea Midline, Thyroid Normal Size and Texture Lungs: Clear to auscultation, No rhonchi, No wheeze, No rales, Diminished Cardiovascular: Regular rate, Regular Rhythm, Normal S1, Normal S2 Abdomen: Bowel Sounds Present, Soft, Non Tender, Non-Distended, No Hepato-splenomegaly Extremities: No clubbing, No cyanosis, No edema Skin: No rashes, No breakdown Lymphatic: No Cervical, Supraclavicular, or Inguinal Adenopathy Neurological: Cranial nerves II-XII grossly intact, Neuro grossly intact Psych/Mental Status: Normal Affect, Appropriate Vital Signs Temp Pulse Resp BP Pulse Ox 98.8 F 60 16 146/88 H 96 09/04/17 06:00 09/04/17 06:00 09/04/17 06:00 09/04/17 06:00 09/04/17 02:00 Oxygen Flow Rate (L/min) 1.5 Oxygen Delivery Method Room Air Weight: 163 lb 2.273 oz Body Mass Index (BMI) 22.7 Intake and Output for Last 24 Hours 09/02/17 09/03/17 09/04/17 23:59 23:59 23:59 Intake Total 600 / 600 640 / 640 600 / 600 Balance 600 / 600 640 / 640 600 / 600 POC Glucose 09/04/17 09/03/17 09/03/17 06:50 20:53 16:45 POC Glucose 192 H 243 H 146 H 09/03/17 11:19 POC Glucose 163 H Medical Necessity - Tobacco Use Smoking Status: Current every day smoker Tobacco Use: Cigarettes Assessment/Plan This is a 57 years old male patient presented to the emergency room yesterday because of alcohol intoxication, requested admission for alcohol detoxification, found to have blood alcohol level of 281 and because he is known to change his mind in terms of admission for detoxification, he was observed until he became sober and again stated that he wanted to be admitted for detoxification. While he is awaiting for insurance preauthorization, patient became anxious, restless, tremulous and his blood pressure went up to 190 systolic, found to be in acute withdrawal and he is being admitted for stabilization. #1 acute alcohol withdrawal: He is on Ativan as needed, thiamine, folic acid, multivitamins. Patient reported marked improvement, less shaky and restless. Vital signs stable. Urine drug screen is negative. Plan to continue same treatment, DC home tomorrow. #2 hypokalemia: Potassium replaced and corrected. #3 type 2 diabetes mellitus: Blood sugar under better control, continue ADA diet, Accu-Cheks, insulin sliding scale, continue on Levemir insulin twice daily. #4 history of congenital aortic aneurysm: Status post repair ?2, stable. #5 status post aortic valve replacement with bioprosthetic valve: Stable, no acute issues. #6 sick sinus syndrome status post pacemaker: Heart rate stable, continue metoprolol. #7 hypertension: Blood pressure is coming down. continue lisinopril and metoprolol. #8 alcohol abuse: Plan as above. #9 DVT prophylaxis: Low risk patient, ambulate. This note was generated with [employer] dictation software. It may contain incorrect words, spelling, and punctuation that were not noted in checking the note before signing. Code Visit Inpatient E&M: 93837 Subs Hosp L2
--- NOTE | 2017-09-04 08:47 | PN_ITS ---
Subjective: Chief complaint: Follow-up after admission for acute alcohol withdrawal. Patient seen and examined. No acute events overnight. He is doing fine, no specific complaints. He mentioned that shakiness and restlessness is getting better. When I asked the patient if he can go home today and staying up with Den[facility], he replied I would like to stay 1 more day to be sure. His vitals are stable. - Physical Exam General: Alert, Oriented x3, Cooperative, No apparent distress HEENT: Atraumatic, PERRLA, EOMI, Normocephalic Oral: Moist Mucosa, No Gingival or Mucosal Lesions/ Ulcerations Neck: Supple, No JVD, Negative Carotid Bruits, Trachea Midline, Thyroid Normal Size and Texture Lungs: Clear to auscultation, No rhonchi, No wheeze, No rales, Diminished Cardiovascular: Regular rate, Regular Rhythm, Normal S1, Normal S2 Abdomen: Bowel Sounds Present, Soft, Non Tender, Non-Distended, No Hepato- splenomegaly Extremities: No clubbing, No cyanosis, No edema Skin: No rashes, No breakdown Lymphatic: No Cervical, Supraclavicular, or Inguinal Adenopathy Neurological: Cranial nerves II-XII grossly intact, Neuro grossly intact Psych/Mental Status: Normal Affect, Appropriate Vital Signs Temp Pulse Resp BP Pulse Ox 98.8 F 60 16 146/88 H 96 09/04/17 06:00 09/04/17 06:00 09/04/17 06:00 09/04/17 06:00 09/04/17 02:00 Oxygen Flow Rate (L/min) 1.5 Oxygen Delivery Method Room Air Weight: 163 lb 2.273 oz Body Mass Index (BMI) 22.7 Intake and Output for Last 24 Hours 09/02/17 09/03/17 09/04/17 23:59 23:59 23:59 Intake Total 600 / 600 640 / 640 600 / 600 Balance 600 / 600 640 / 640 600 / 600 POC Glucose 09/04/17 09/03/17 09/03/17 06:50 20:53 16:45 POC Glucose 192 H 243 H 146 H 09/03/17 11:19 POC Glucose 163 H Medical Necessity - Tobacco Use Smoking Status: Current every day smoker Tobacco Use: Cigarettes Assessment/Plan This is a 57 years old male patient presented to the emergency room yesterday because of alcohol intoxication, requested admission for alcohol detoxification , found to have blood alcohol level of 281 and because he is known to change his mind in terms of admission for detoxification, he was observed until he became sober and again stated that he wanted to be admitted for detoxification. While he is awaiting for insurance preauthorization, patient became anxious, restless, tremulous and his blood pressure went up to 190 systolic, found to be in acute withdrawal and he is being admitted for stabilization. #1 acute alcohol withdrawal: He is on Ativan as needed, thiamine, folic acid, multivitamins. Patient reported marked improvement, less shaky and restless. Vital signs stable. Urine drug screen is negative. Plan to continue same treatment, DC home tomorrow. #2 hypokalemia: Potassium replaced and corrected. #3 type 2 diabetes mellitus: Blood sugar under better control, continue ADA diet , Accu-Cheks, insulin sliding scale, continue on Levemir insulin twice daily. #4 history of congenital aortic aneurysm: Status post repair ?2, stable. #5 status post aortic valve replacement with bioprosthetic valve: Stable, no acute issues. #6 sick sinus syndrome status post pacemaker: Heart rate stable, continue metoprolol. #7 hypertension: Blood pressure is coming down. continue lisinopril and metoprolol. #8 alcohol abuse: Plan as above. #9 DVT prophylaxis: Low risk patient, ambulate. This note was generated with [employer] dictation software. It may contain incorrect words, spelling, and punctuation that were not noted in checking the note before signing. Code Visit Inpatient E&M: 23341 Subs Hosp L2
[2017-09-04] MEDS: Thiamine Hydrochloride 100 MG Tablet PO (10:04)
[2017-09-04] MEDS: Aspirin 81 MG TAB.CHEW PO (10:04)
[2017-09-04] MEDS: Multivitamins,Therapeutic Tablet 1 TABLET PO (10:05)
[2017-09-04] MEDS: Folic Acid 1 MG Tablet PO (10:05)
[2017-09-04] MEDS: FLUoxetine 20 MG Capsule 40 MG PO (10:06)
[2017-09-04] MEDS: Insulin Lispro 100 UNIT/ML INSULN.PEN SC ×3 (10:07→22:00)
[2017-09-04] MEDS: Acetaminophen 325 MG Tablet 650 MG PO ×2 (10:15→20:34)
--- NOTE | 2017-09-04 10:33 | NURSING ---
pt laying supine and heart rate 59- will hold b/p medications and reassess later this shift.
[2017-09-04 11:25] LABS: Bedside Glucose 128 mg/dL (70-110)
[2017-09-04] MEDS: Metoprolol Tartrate 100 MG Tablet PO ×2 (11:26→21:58)
[2017-09-04] MEDS: Lisinopril 20 MG Tablet PO (11:26)
[2017-09-04 16:01] LABS: Bedside Glucose 193 mg/dL (70-110)
--- NOTE | 2017-09-04 16:47 | NURSING ---
Patient was sitting by elevator earlier this shift- holding something in his hand. Patient was resting in chair with eyes closed. This RN went up to patient and reminded him that if he left this floor patient would be d/c'ed AMA. Patient states, really?? Educated that this is the policy and the rules for [facility]. Pt. verbalized understanding. Patient then asked to be discharged today. He stated that the doctor asked him earlier and now he feels ready. This RN notified Dr. Kim. In mean time- pt went in his room and packed his belongings. Dr. Kim replied that he will not be discharging him at this time as he told doctor that he didn't feel sure that he wouldn't go back to drinking if d/c'ed today. Pt notified of same. He then looked at this RN and stated, hypothetically speaking, if someone changed into regular clothing and took elevator down and went outside and then came back what would happen? This RN again notified patient that if he leaves unit he will be d/c'ed AMA. Patient states that then the [facility] program would not be completed and he can't do that. This RN encouraged patient to stick it out and finish the program as he only has 1 more night. Pt. verbalized understanding and agreed to same. Patient then asked for nicotene gum- this RN asked Dr. Kim- new order for nicotene gum and to d/c nicotene patch.
[2017-09-04] MEDS: Atorvastatin Calcium 40 MG Tablet PO (21:58)
[2017-09-04 22:11] LABS: Bedside Glucose 297 mg/dL (70-110)
--- NOTE | 2017-09-04 22:56 | NURSING ---
Pt's cousin Lillie Khanna #[phone] called concerned about pt being D/C on Wednesday--Family is hoping he could get into an inpatient detox facility D/T pt's father whom is in his 90's makes sure he takes his meds and gets to work. Pt's father was in the [facility] as a pt and that is when the pt was not doing well at home and his cousin Lillie found him. Pt's father was D/C on 09/04/2017 and is in [facility] for rehab. If pt goes home he does not have keys to the home per Lillie the family had the house locked. Please call Lillie about discharge planning.
[2017-09-05] MEDS: LORazepam 1 MG Tablet PO ×2 (00:10→08:48)
[2017-09-05 02:00] VITALS: BP 140/84; PULSE 60; RESP 16; TEMP 36.6; O2SAT 97
[2017-09-05 02:30] VITALS: BP 140/84; PULSE 60; RESP 16; TEMP 36.6; O2SAT 97
[2017-09-05] MEDS: Insulin Lispro 100 UNIT/ML INSULN.PEN SC (06:50)
[2017-09-05 06:55] LABS: Bedside Glucose 174 mg/dL (70-110)
[2017-09-05 08:05] VITALS: O2SAT 96
[2017-09-05 08:39] VITALS: BP 160/73; PULSE 59; RESP 18; TEMP 36.9; O2SAT 98
[2017-09-05 08:41] VITALS: BP 160/73; PULSE 59; RESP 18; TEMP 36.6
[2017-09-05] MEDS: FLUoxetine 20 MG Capsule 40 MG PO (08:44)
[2017-09-05] MEDS: Lisinopril 20 MG Tablet PO (08:44)
[2017-09-05] MEDS: Aspirin 81 MG TAB.CHEW PO (08:44)
[2017-09-05] MEDS: Thiamine Hydrochloride 100 MG Tablet PO (08:44)
[2017-09-05 08:45] VITALS: PULSE 59
[2017-09-05] MEDS: Multivitamins,Therapeutic Tablet 1 TABLET PO (08:45)
[2017-09-05] MEDS: Folic Acid 1 MG Tablet PO (08:45)
[2017-09-05] MEDS: Metoprolol Tartrate 100 MG Tablet PO (08:45)
--- NOTE | 2017-09-05 08:46 | DCINST_ITS ---
You will use the following diet at home:: Calorie/Carbohydrate Controlled ( specify 1200, 1400, etc) - 1800 rodriguez, Cardiac Your food should be the consistency of: Regular Discharge Activity: Return to Normal Activity Weight Bearing Status: Full weight bearing Call your doctor if you observe: Fever of 101 or Higher, Shortness of breath, Dizziness, Fainting spells, Chest pain, Increased palpitations (irregular heartbeat), Uncontrolled pain Instructions: ED Alcohol Abuse, The Impact of Alcoholism, Alcohol Addiction, Recovering from Addiction Allergies/Adverse Reactions: Allergies No Known Allergies Allergy (Verified 08/30/17 19:42) Medications to take at Discharge Insulin Detemir [Levemir] 25 units SC BID 06/20/16 Lisinopril [Zestril] 20 mg PO DAILY 06/20/16 Metoprolol Tartrate 100 mg PO BID 06/20/16 Acetaminophen [Tylenol Tablet] 500 mg PO Q6H PRN PRN tablet 04/02/17 Aspirin [Aspirin, Baby] 81 mg PO DAILY@0800 04/02/17 Atorvastatin Calcium [Lipitor] 40 mg PO QHS 04/02/17 Fluoxetine HCl [Prozac] 40 mg PO DAILY 04/02/17 Naltrexone Microspheres [Vivitrol] 1 injectable IM QMONTH 09/02/17 Folic Acid 1 mg PO DAILYCM #30 tab 09/05/17 Thiamine Hydrochloride [Vitamin B1] 100 mg PO DAILYCM #30 tab 09/05/17 The following prescriptions were given: Folic Acid 1 mg PO DAILYCM #30 tab Thiamine Hydrochloride [Vitamin B1] 100 mg PO DAILYCM #30 tab Primary Care Physician: Care Physician,No Primary [Primary Care Provider] - Please follow up with your Primary Care Physician in: 1 week. Test Results: Test results from this visit will be discussed in further detail at your follow- up appointment, if applicable.
--- NOTE | 2017-09-05 09:04 | NURSING ---
spoke with pt to verify discharge plans- pt endorses that he is to follow up with [facility]. informed pt that female identified herself as Lillie phoned in during night and concerned about house being locked and pt not being able to get in- pt then reaches into his pants pockets to look for claudio and is unable to locate it. informed pt that Lillie left her phone number and offered that for pt to connect with Lillie to discuss concerns with house claudio and the house being locked. Lillie @ [phone] able to dialed from pt room and pt left voice mail message for lillie to phone him back and left his room number phone number. Pt states that he usually takes a taxi cab home, inquired if Lillie can possible transport him home as well, if she is familiar with house being locked and for pt to get into his house. pt states i think that may work well, that is killing two birds with one stone. pt agrees to let nursing staff know when he has made contact with Lillie and what plan is so pt will be able to get into his house. Dr. Kim updated on [facility] paperwork and pt endorsing same information.
--- NOTE | 2017-09-05 10:08 | NURSING ---
pt signed authorization for speaking with Lillie regarding his care and treatment. Lillie voices concerns about him living in his fathers house, concerned pt will drink again. asking that pt be held here longer he was supposed to get inpatient treatment. Lillie informed pt was here through [email or web address] program and endorses the discharge plan accordingly. Lillie asking for other contact information of person she can speak with- phone call then transfered back into pt room pt Lillie request so she can speak to the patient. Said nurse notified Latha who is general hardware salesperson for case management- updated on situation, suggested to inform Lillie of [facility] number and she can reach out to them. Pt updated and informed. phoned Lillie at number she provided, voicemail for lillie's phone left, informing phone number to [facility] number in [place] and phone number to nurses floor- no patient identifier information left on voice mail.
--- NOTE | 2017-09-05 11:12 | DS.PCM_ITS ---
Discharge Date and Diagnosis Date of Admission: 09/02/17 Date of Discharge: 09/05/17 - Primary Discharge Diagnosis Acute alcohol withdrawal. 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 Today, he feels much better, more comfortable. Anxiety and restlessness significantly improved. Vital signs are stable. - Physical Exam General: Alert, Oriented x3, Cooperative, No apparent distress. HEENT: Atraumatic, PERRLA, EOMI. Neck: Supple, No JVD, Negative Carotid Bruits, Trachea Midline, Thyroid Normal. Lungs: Clear to auscultation, Normal air movement, No rhonchi, No wheeze, No rales. Cardiovascular: Regular rate, Regular Rhythm, Normal S1, Normal S2, PMI Normal, systolic murmur. Abdomen: Bowel Sounds Present, Soft, Non Tender, Non-Distended, No Hepato- splenomegaly. Extremities: No clubbing, No cyanosis, No edema Skin: No rashes, No breakdown Neurological: Neuro grossly intact Hospital course: The patient is a 57 year old M presented to the emergency room the day before admission and he requested to be admitted for alcohol detoxification. Initially , he was found to be an alcohol intoxication and his blood alcohol level was 281. He was observed in the emergency department for more than 14 hours. [facility] was requested to see the patient and they were waiting on admission preauthorization for alcohol detoxification. While patient in the ED, he developed an anxiety, restlessness and he became tremulous and his blood pressure was highly elevated. He went into acute alcohol withdrawal and he was admitted for medical stabilization. His blood pressure was slightly elevated but he was not tachycardic but he also has been on high doses of metoprolol. His routine blood work was unremarkable. His urine drug screen was negative. He was treated with thiamine and folic acid supplement, multivitamins, CIWA protocol with as needed Ativan. His potassium was slightly low and was replaced and corrected. With treatment, patient symptoms improved, became less shaky and discuss and he reported good sleep at night. Patient discharged home in a stable medical condition, plan is to follow-up with [facility] as outpatient, discharged on folic acid and thiamine supplement, counseled about his alcohol drinking behavior, continued on his chronic home medications without any changes, recommended follow-up with PCP in 1 week. Discharge Activity: Return to Normal Activity Weight Bearing Status: Full weight bearing Call your doctor if you observe: Fever of 101 or Higher, Shortness of breath, Dizziness, Fainting spells, Chest pain, Increased palpitations (irregular heartbeat), Uncontrolled pain Home Medications: Medications to take at Discharge Insulin Detemir [Levemir] 25 units SC BID 06/20/16 Lisinopril [Zestril] 20 mg PO DAILY 06/20/16 Metoprolol Tartrate 100 mg PO BID 06/20/16 Acetaminophen [Tylenol Tablet] 500 mg PO Q6H PRN PRN tablet 04/02/17 Aspirin [Aspirin, Baby] 81 mg PO DAILY@0800 04/02/17 Atorvastatin Calcium [Lipitor] 40 mg PO QHS 04/02/17 Fluoxetine HCl [Prozac] 40 mg PO DAILY 04/02/17 Naltrexone Microspheres [Vivitrol] 1 injectable IM QMONTH 09/02/17 Folic Acid 1 mg PO DAILYCM #30 tab 09/05/17 Thiamine Hydrochloride [Vitamin B1] 100 mg PO DAILYCM #30 tab 09/05/17 Following Prescrptions Were Given to Patient: Folic Acid 1 mg PO DAILYCM #30 tab Thiamine Hydrochloride [Vitamin B1] 100 mg PO DAILYCM #30 tab Primary Care Physician: Care Physician,No Primary [Primary Care Provider] - Please follow up with your Primary Care Physician in: 1 week. Patient Instructions: The Impact of Alcoholism, Alcohol Addiction, Recovering from Addiction, ED Alcohol Abuse Disposition: Home Minutes spent on discharge:: 26 Patient Condition:: Stable Medical Necessity - Tobacco Use Smoking Status: Current every day smoker Tobacco Use: Cigarettes Meaningful Use Info Meaningful Use Diagnoses (Choose all that apply): None applicable Code Visit Inpatient E&M: 12755 Disch Hosp
== END 2017-09-05 10:05 | disposition home or self-care (01) | DRG 897 ==
LOC: ED 09-02 08:58 → MS3 09-02 11:20
PROVIDERS: Emergency Medicine; Admitting Provider Hospitalist; Emergency Provider Emergency Medicine; Visit Provider Hospitalist
DX: F10.229 Alcohol dependence with intoxication, unspecified (principal); F10.239 Alcohol dependence with withdrawal, unspecified; Y90.8 Blood alcohol level of 240 mg/100 ml or more; E11.9 Type 2 diabetes mellitus without complications; I10 Essential (primary) hypertension; Z95.3 Presence of xenogenic heart valve; F41.9 Anxiety disorder, unspecified; E87.6 Hypokalemia; Z95.0 Presence of cardiac pacemaker; F17.210 Nicotine dependence, cigarettes, uncomplicated
CPT/HCPCS: 80048; 80307; 80320; 82962; 85025; 93005; 97116; 97162; 97530; 97802; 99284; 99406; A4216; G0480

== ENCOUNTER 2017-09-05 19:58 | Emergency (ER) | payer OTHER, SELFPAY ==
[2017-09-05 20:01] VITALS: BP 156/86; PULSE 70; RESP 21; TEMP 37.1; O2SAT 94; BMI 23.3
[2017-09-05 20:31] LABS: Bedside Glucose 396 mg/dL (70-110)
--- NOTE | 2017-09-05 20:54 | ED.VISSUMM ---
- ER Visit Summary Date of Service: 09/05/17 Chief Complaint: Intoxication History of Present Illness: The patient is a 57 M who was seen in the emergency department over the weekend and admitted for alcohol withdrawal. Patient was discharged from the hospital today at approximately 11 AM. Apparently family dropped him off at home and told him they would pick him up for dinner around 7. When they return to pick him up he was found unresponsive. He was able to wake up and be aggressive/combative with quartz orientator's department and paramedics. He told them he had been drinking today and did some heroin. Physical Examination: Afebrile vital signs are stable Gen: Well-nourished well-developed unkempt Head: Normocephalic atraumatic Eyes: Perrl EOMI ENT: TMs clear no rhinorrhea moist mucous membranes Neck: Supple no lymphadenopathy no JVD nontender CVS: Regular rate rhythm no murmurs normal S1-S2 Respiratory: No distress clear to auscultation bilaterally chest nontender Abdomen: Soft nontender nondistended normal bowel sounds no masses Back: Nontender Extremity: Nontender no edema Skin: Normal color no rash Neuro: alert speaking intelligibly. He refuses to answer orientation questions Psych: Angry and aggressive Emergency Department Course and Treatment: Accu-Chek was obtained. Patient will be allowed to sleep until he is clinically sober or he can find a ride home. Once that person is found the patient will need to have somebody stay with him tonight. Patient was advised not to drink anymore alcohol or do drugs. Impression: 1. Alcohol intoxication 2. Heroin abuse This note was generated with [employer] dictation software. It may contain incorrect words, spelling, and punctuation that were not noted in review of the chart prior to signing ED Disposition - Plan for ED Patient: Disposition: Home or Assisted Living Chief Complaint: Overdose Instructions: ED Alcohol Intoxication, ED Narcotic Abuse Referrals: Vj Mckeon MD [STAFF PHYSICIAN] - As Needed Additional Instructions: You will need to have somebody stay with you tonight who is sober that can watch you. Do not drink or do drugs they will kill you.
--- NOTE | 2017-09-05 21:04 | ED.DCSUM_ITS ---
- ER Visit Summary Date of Service: 09/05/17 Chief Complaint: Intoxication History of Present Illness: The patient is a 57 M who was seen in the emergency department over the weekend and admitted for alcohol withdrawal. Patient was discharged from the hospital today at approximately 11 AM. Apparently family dropped him off at home and told him they would pick him up for dinner around 7. When they return to pick him up he was found unresponsive. He was able to wake up and be aggressive/combative with movie writer's department and paramedics. He told them he had been drinking today and did some heroin. Physical Examination: Afebrile vital signs are stable Gen: Well-nourished well-developed unkempt Head: Normocephalic atraumatic Eyes: Perrl EOMI ENT: TMs clear no rhinorrhea moist mucous membranes Neck: Supple no lymphadenopathy no JVD nontender CVS: Regular rate rhythm no murmurs normal S1-S2 Respiratory: No distress clear to auscultation bilaterally chest nontender Abdomen: Soft nontender nondistended normal bowel sounds no masses Back: Nontender Extremity: Nontender no edema Skin: Normal color no rash Neuro: alert speaking intelligibly. He refuses to answer orientation questions Psych: Angry and aggressive Emergency Department Course and Treatment: Accu-Chek was obtained. Patient will be allowed to sleep until he is clinically sober or he can find a ride home. Once that person is found the patient will need to have somebody stay with him tonight. Patient was advised not to drink anymore alcohol or do drugs. Impression: 1. Alcohol intoxication 2. Heroin abuse This note was generated with [employer] dictation software. It may contain incorrect words, spelling, and punctuation that were not noted in review of the chart prior to signing ED Disposition - Plan for ED Patient: Disposition: Home or Assisted Living Chief Complaint: Overdose Instructions: ED Alcohol Intoxication, ED Narcotic Abuse Referrals: Vj Mckeon MD [STAFF PHYSICIAN] - As Needed Additional Instructions: You will need to have somebody stay with you tonight who is sober that can watch you. Do not drink or do drugs they will kill you.
[2017-09-05 21:54] VITALS: BP 136/60; PULSE 80; RESP 16; O2SAT 98
== END 2017-09-05 21:55 | disposition home or self-care (01) ==
PROVIDERS: Emergency Provider Emergency Medicine
DX: F10.229 Alcohol dependence with intoxication, unspecified (principal); Y90.9 Presence of alcohol in blood, level not specified; F11.10 Opioid abuse, uncomplicated; E86.0 Dehydration; N17.9 Acute kidney failure, unspecified; E11.9 Type 2 diabetes mellitus without complications; I10 Essential (primary) hypertension; Z79.82 Long term (current) use of aspirin; Z79.4 Long term (current) use of insulin; Z79.899 Other long term (current) drug therapy; Z72.0 Tobacco use
CPT/HCPCS: 82962; 99284

== ENCOUNTER 2017-12-24 17:44 | Emergency (ER) | payer OTHER, SELFPAY ==
[2017-12-24 17:44] VITALS: BP 186/102; PULSE 60; RESP 18; TEMP 37.2; O2SAT 97; BMI 22.3
--- NOTE | 2017-12-24 18:00 | RAD_ITS ---
STUDY: X-RAY - UNILATERAL RIBS ( LEFT ) WITH CHEST REASON FOR EXAM: Male, 57 years old. Left rib pain. Injury. TECHNIQUE - RIBS: 4 view(s) of the ribs. TECHNIQUE - CHEST: Frontal view COMPARISON: 08/06/2017 FINDINGS - RIBS: There is a nondisplaced fracture of the left ninth rib. There are no additional displaced rib fractures identified. FINDINGS - CHEST: There is stable linear scarring in the left lower lobe. The lungs are otherwise clear. There are no pleural effusions. There is no pneumothorax. The heart is normal in size. Again noted are sternotomy wires and a pacemaker. RAD/Ribs Uni Min 3V w/PA Chest IMPRESSION: RIBS: Nondisplaced fracture of the left ninth rib. CHEST: Clear lungs. Electronically Signed: Chencho Ruiz, at 18:33 EST Tel , Service support ,
--- NOTE | 2017-12-24 19:02 | ED.VISSUMM ---
- ER Visit Summary Date of Service: 12/24/17 Chief Complaint: Left rib injury History of Present Illness: The patient is a 57 M presents for evaluation from work injury occurring this morning at 6 AM 13 hours ago. 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 No dyspnea. Pain with palpation and deep breaths. History of cardiac history with aortic valve repair, has AICD. Has tolerated [place] in the past. Physical Examination: General: Alert and oriented ?3, no acute distress HEENT: Normocephalic, atraumatic. Moist mucosa membranes Neck: supple, nontender. Cardiovascular: Regular rate and rhythm, no murmurs Respiratory: Normal breath sounds, symmetric, no distress. Tender palpation left lateral lower rib. No crepitus. Abdomen: Soft, nontender, nondistended Extremities: Nontender, no edema, pulses intact ?4 Neuro: no focal neurological deficits. Test Results: Left rib series: Fracture left ninth rib. No pneumothorax Emergency Department Course and Treatment: X-ray obtained confirms fracture ninth rib. No pneumothorax. Discomfort treated with [place]. Incentive spirometer provided. Work restrictions, follow-up with [facility]. OARRS negative Treatment Plan: [] Disposition: Discharge Impression: 1. Closed left ninth rib fracture This note was generated with [email or web address] dictation software. It may contain incorrect words, spelling, and punctuation that were not noted in review of the chart prior to signing ED Disposition - Plan for ED Patient: Disposition: Home or Assisted Living Chief Complaint: Chest Other Diagnosis: Closed left ninth rib fracture Instructions: ED Fx Rib Prescriptions: Hydrocodone Bitart/Apap 5-325 [[place] 5MG-325MG] 1 tablet PO Q6H PRN PRN 3 Days #12 tablet PRN Reason: Pain Referrals: [facility] [GROUP OF PHYSICIANS] - 3-5 Days Additional Instructions: Left ninth rib fracture. Incentive spirometer every 2 hours while awake. Pain medications as needed. Follow-up with [facility].
--- NOTE | 2017-12-24 19:09 | ED.DCSUM_ITS ---
- ER Visit Summary Date of Service: 12/24/17 Chief Complaint: Left rib injury History of Present Illness: The patient is a 57 M presents for evaluation from work injury occurring this morning at 6 AM 13 hours ago. 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 No dyspnea. Pain with palpation and deep breaths. History of cardiac history with aortic valve repair, has AICD. Has tolerated [place] in the past. Physical Examination: General: Alert and oriented ?3, no acute distress HEENT: Normocephalic, atraumatic. Moist mucosa membranes Neck: supple, nontender. Cardiovascular: Regular rate and rhythm, no murmurs Respiratory: Normal breath sounds, symmetric, no distress. Tender palpation left lateral lower rib. No crepitus. Abdomen: Soft, nontender, nondistended Extremities: Nontender, no edema, pulses intact ?4 Neuro: no focal neurological deficits. Test Results: Left rib series: Fracture left ninth rib. No pneumothorax Emergency Department Course and Treatment: X-ray obtained confirms fracture ninth rib. No pneumothorax. Discomfort treated with [place]. Incentive spirometer provided. Work restrictions, follow-up with [facility]. OARRS negative Treatment Plan: [] Disposition: Discharge Impression: 1. Closed left ninth rib fracture This note was generated with [employer] dictation software. It may contain incorrect words, spelling, and punctuation that were not noted in review of the chart prior to signing ED Disposition - Plan for ED Patient: Disposition: Home or Assisted Living Chief Complaint: Chest Other Diagnosis: Closed left ninth rib fracture Instructions: ED Fx Rib Prescriptions: Hydrocodone Bitart/Apap 5-325 [[place] 5MG-325MG] 1 tablet PO Q6H PRN PRN 3 Days #12 tablet PRN Reason: Pain Referrals: [facility] [GROUP OF PHYSICIANS] - 3-5 Days Additional Instructions: Left ninth rib fracture. Incentive spirometer every 2 hours while awake. Pain medications as needed. Follow-up with [facility].
[2017-12-24 19:46] VITALS: BP 161/94; PULSE 60; O2SAT 97
[2017-12-24] MEDS: HYDROcodone Bitartrate/Apap 5/325 Tablet PO (19:48)
== END 2017-12-24 19:51 | disposition home or self-care (01) ==
PROVIDERS: Emergency Provider Emergency Medicine
DX: S22.32XA Fracture of one rib, left side, initial encounter for closed fracture (principal); W31.89XA Contact with other specified machinery, initial encounter; Y93.9 Activity, unspecified; Y92.9 Unspecified place or not applicable; I25.2 Old myocardial infarction; I50.9 Heart failure, unspecified; E11.9 Type 2 diabetes mellitus without complications; Z95.810 Presence of automatic (implantable) cardiac defibrillator; Z95.2 Presence of prosthetic heart valve; Z79.899 Other long term (current) drug therapy; Z72.0 Tobacco use
CPT/HCPCS: 71101; 99283; A4216

== ENCOUNTER 2017-12-27 09:10 | Observation (INO) | payer OTHER, SELFPAY ==
[2017-12-27] VITALS (9 sets, daily range): BP systolic 132–149; BP diastolic 79–102; PULSE 60; RESP 16–24; TEMP 36.4–36.8; O2SAT 95–97; BMI 23.0; BMI 21.4; BMI 21.5
--- NOTE | 2017-12-27 09:24 | EKG12_ITS ---
Test Reason : CHEST PAIN Blood Pressure : / mmHG Vent. Rate : 060 BPM Atrial Rate : 060 BPM P-R Int : 188 ms QRS Dur : 128 ms QT Int : 436 ms P-R-T Axes : 065 001 085 degrees QTc Int : 436 ms Atrial-paced rhythm Right bundle branch block Abnormal ECG Confirmed by ZHAO FRANCISCO, KETTY ([id number]), image editor BENJAMÍN JAVIER ([id number]) on 12/29/2017 11:18:14 AM Referred By: JESSICA Confirmed By:KETTY CHURCHILL MD
--- NOTE | 2017-12-27 09:40 | ED.DCSUM_ITS ---
- ER Visit Summary Date of Service: 12/27/17 Chief Complaint: Weakness, cough, shortness of breath History of Present Illness: The patient is a 57 M with history of alcohol abuse, coronary vascular disease, CABG by 3 presents with shortness of breath. The patient was seen here 3 days ago. At that time, he was at work. He was working on a table but moves. He states the table struck him on the left chest. He was seen here and diagnosed with a left-sided rib fracture. He was given analgesics and incentive spirometer. He states that he feels like his pain is gotten worse. He is at worsening cough, fever, chills, and feels like he cannot catch his breath. He is also generalized malaise and fatigue. The patient does have a history of noncompliance with medications. He also has a history of alcohol and opiate abuse. Physical Examination: Vital signs reviewed General: Well-nourished, well-developed Head: Normocephalic, atraumatic Eyes: Pupils equal and reactive, extraocular muscles intact Neck, supple, no lymphadenopathy Heart: Regular rate and rhythm Respiratory: No distress, diminished in the left base, tenderness with palpation Abdomen: Soft, nontender, nondistended, no peritoneal signs Back: Nontender Extremities: Nontender, no edema, no cords Skin: Normal color no rash Neuro: Alert and oriented, no focal or lateralizing deficits Test Results: [] Emergency Department Course and Treatment: The patient presents with worsening dyspnea, productive sputum, fever, and chills. My suspicion is that he has developing pneumonia. His labs are relatively unremarkable except for hyperglycemia. His x-ray does not show definitive infiltrate, but he does have change in lung sounds in his left base with productive sputum. Given his history of fracture, difficulty breathing, and infectious symptoms I do feel that he would benefit from admission. Patient was started on community-acquired pneumonia coverage. He was discussed with the hospitalist will be admitted at this time. Treatment Plan: [] Disposition: Admission Impression: 1. Left rib fracture 2. Clinical pneumonia This note was generated with [employer] software. It may contain incorrect words, spelling, and punctuation that were not noted in review of the chart prior to signing ED Disposition - Plan for ED Patient: Chief Complaint: Weakness
[2017-12-27] MEDS: Ipratropium/Albuterol Sulfate 3 ML AMPUL.NEB INHALATION (09:43)
[2017-12-27 09:58] LABS: Absolute Lymphocyte Count 1.32 X10^3/ul (0.83-4.51); Absolute Neutrophil Count 7.7 X10^3/uL (2.0-7.7); Basophil# 0.03 X10^3/uL; Basophil% 0.3 % (0-1); Eosinophil# 0.06 X10^3/uL; Eosinophils% 0.6 % (0-5); Hematocrit 42.6 % (40-54); Hemoglobin 15.3 g/dl (13.0-16.5); Lymphocyte # 1.32 X10^3/ul (4.0); Lymphocyte % 13.1 % (19-41); Mean Corp Hgb Conc 35.9 g/gl (32-36); Mean Corpuscular Hgb 32.3 pg (27.0-32.0); Mean Corpuscular Volume 89.9 fL (80-94); Mean Platelet Vol. 10.5 fl (6.2-12.0); Monocyte# 0.94 X10^3/uL; Monocyte% 9.3 % (0-10); Neutrophil # 7.73 X10^3/uL (2.7-7.7); Neutrophil % 76.5 % (47-70); Platelet Count 278 K/mm3 (150-450); RBC Distribution Width CV 12.7 % (11.6-14.6); RBC Distribution Width SD 41.2 fl (35.1-43.9); Red Blood Count 4.74 M/mm3 (4.6-6.2); White Blood Count 10.1 K/mm3 (4.4-11.0)
[2017-12-27 09:59] LABS: POSITIVE COUNT NO; POSITIVE DIFFERENTIAL NO; POSITIVE MORPHOLOGY NO
[2017-12-27 10:21] LABS: Lactic Acid 1.8 mmol/L (0.4-2.0)
[2017-12-27] MEDS: Morphine 4 MG/ML Syringe IV (10:21)
[2017-12-27 10:23] LABS: ALB/GLOB Ratio 0.8 RATIO (0.9-2.4); AST(SGOT) 15 U/L (15-37); Alanine Aminotransfer ALT/SGPT 35 U/L (16-61); Albumin, Serum 3.8 g/dL (3.2-5.0); Alkaline Phosphatase 210 U/L (45-117); Anion Gap 14 (5-15); BUN 28 mg/dL (7-18); BUN/Creat Ratio 22.2 RATIO (10-20); Chloride 92 mmol/L (98-107); Creatinine, Serum 1.26 mg/dL (0.70-1.30); EST Glomerular Filtration Rate 63 mL/min (>60); Est Glom Filt Rate - Afr Amer 76 mL/min (>60); Estimated Creatinine Clearance 70.12 ml/min; Globulin 4.5 g/dL (2.2-4.2); Glucose 477 mg/dL (74-106); Protein, Total 8.3 g/dL (6.4-8.2); Sodium Level 130 mmol/L (136-145)
--- NOTE | 2017-12-27 10:28 | RAD_ITS ---
STUDY: X-RAY CHEST REASON FOR EXAM: Male, 57 years old. Recent left rib fracture with pain. Presents with cough and fever. TECHNIQUE: Frontal and lateral views of the chest. COMPARISON: December 24, 2017 FINDINGS: There is low volume inspiration. There is atelectasis/scarring at the left base relatively unchanged. There is no demonstrated pleural abnormality. There is stable cardiomegaly with sternotomy wires and dual lead cardiac pacer. Valve replacement is stable. Normal mediastinum and akbar. Normal visualized pulmonary arteries. Normal visualized aortic arch and descending thoracic aorta. Normal visualized thoracic spine. Left ninth rib fracture is again identified. There is no demonstrated abnormality of the visualized soft tissue structures of the upper abdomen. RAD/Chest PA and Lateral IMPRESSION: Stable cardiomegaly, low volume inspiration and atelectasis/scarring at the left base. No focal consolidations or other acute abnormality identified. Electronically Signed: Cj Cunningham MD at 11:10 EST , Service support ,
[2017-12-27 10:29] LABS: BNP,B-Type NATRIURETIC PEPTIDE 160.6 pg/mL (0-100)
[2017-12-27 10:30] LABS: Bacteria 0 SEEN /hpf (None Seen); Mucous, Urine 0 SEEN /hpf (<or=2+); White Blood Cells 0 SEEN /hpf (0-5)
[2017-12-27 10:32] LABS: Color, Urine Yellow (Yellow); Glucose, Dipstick 1000 mg/dl (Normal); Ketone-Dipstick 5 mg/dl (Negative); Leukocyte Esterase-Dipstick Negative /ul (Negative); Nitrite-Dipstick Negative (Negative); Occult Blood-Urine 10 /ul (Negative); Protein-Dipstick 30 mg/dl (Negative); Urine Bilirubin Dipstick Negative (Negative); Urine Clarity Clear (Clear); Urine Urobilinogen Normal (Normal)
[2017-12-27 10:39] LABS: Red Blood Cells-Urine 0-5 SEEN /hpf (0-5); Squamous Epithelial Cells - UA 0-5 SEEN /hpf (0-5)
--- NOTE | 2017-12-27 12:11 | PCM.HP.STD ---
Problem List (1) Shortness of breath Status: Acute (2) Pleuritic chest pain Status: Acute History of Present Illness Date of Admission: 12/27/17 Chief Complaint: shortness of breath, fever, pleuritic chest pain The patient is a 57 year old M with past medical history of hypertension, diabetes mellitus, coarctation of aorta status post surgery, status post aortic valve replacement and placement of ICD. He was admitted through the ED on 12/27/2017 with a complaint of left-sided chest pain, fever and shortness of breath which have been going on for a few days. 3 days ago, patient states he was sitting the chest by his desk at work and on going to an urgent care center he was told that he had fractured some left ribs. He was given some pain medication. However pain persisted and he gradually became short of breath. He had subjective fever and chills and also had a cough which was productive of greenish sputum. Today he went back to the urgent care and was told to come to the ED. In the ED, vitals were significant for temperature of 98.2, blood pressure 149/102, respiratory rate of 20 and pulse rate of 60. Chemistry shows sodium of 130 and glucose of 477 with initial troponin which was negative. He had BNP of 160.6. CBC showed no leukocytosis. Chest x-ray showed stable cardiomegaly with low volume inspiration and atelectasis versus scarring at the left base with no focal consultations or other acute abnormality identified. He is been admitted to be managed for probable pneumonia based on clinical suspicion. [] 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) Sick sinus syndrome (Chronic) Diabetes mellitus, type II (Chronic) HTN (hypertension) (Chronic) Tobacco use (Chronic) Aortic aneurysm (Chronic) H/O aortic valve replacement (Chronic) Allergies No Known Allergies Allergy (Verified 08/30/17 19:42) Home Medications: Ambulatory Orders Medication Instructions Recorded Insulin Detemir [Levemir] 25 units SC BID 06/20/16 Lisinopril [Zestril] 20 mg PO DAILY 06/20/16 Metoprolol Tartrate 100 mg PO BID 06/20/16 Acetaminophen [Tylenol Tablet] 500 mg PO Q6H PRN PRN tablet 04/02/17 Atorvastatin Calcium [Lipitor] 40 mg PO QHS 04/02/17 Fluoxetine HCl [Prozac] 40 mg PO DAILY 04/02/17 Multivitamin [Daily Multiple 1 each PO DAILY 12/27/17 Vitamin] Surgical History: - - Aortic aneurysm repair and aortic valve replacement (bovine) with total 3 separate surgies, most recent 04/2016 [facility], R inguinal hernia repair. Psychiatric History: No pertinent psych hx Lives: Spouse/ Significant Other Smoking Status: Current every day smoker - one pack per day for 25 years. Alcohol: Heavy - says he drinks at least a pint of screwdriver on the weekends Drugs: None - *Family History Maternal History Items: Dementia Paternal History Items: Heart Disease Review of Systems Constitutional: Reports: Chills, Fever. Denies: Anorexia, Night Sweats, Weakness, Fatigue Eyes: Denies: Blurred vision HEENT: Denies: Head Aches, Sinus Congestion, Sinus Drainage Cardiovascular: Reports: Chest Pain - left sided chest pleuritic chest pain. Denies: Chest Pressure, Edema, Heaviness, Light Headedness Respiratory: Reports: Cough, Pleuritic Pain, Sputum production - greenish sputum. Denies: Wheezing Gastrointestinal: Denies: Abdominal Pain, Nausea, Vomiting Genitourinary: Denies: Dysuria Musculoskeletal: Denies: Joint Pain, Joint Tenderness Skin: Denies: Rash, Wounds Neurological: Denies: Numbness, Tingling, Focal weakness Psychiatric: Denies: Anxiety, Depression, Homicidal Ideations, Suicidal Ideations Hematologic/ Lymphatic: Denies: Easy Bruising, Easy Bleeding VTE Information - Inpt Only VTE Present on Admission: No VTE Pharm Prophylaxis ordered?: Yes Patient Problems: Active and Suspected Problems Shortness of breath (Acute) Pleuritic chest pain (Acute) - Physical Exam General: Alert, Oriented x3, Cooperative, No apparent distress HEENT: Atraumatic, PERRLA, EOMI, Normocephalic Oral: Moist Mucosa Neck: Supple, No JVD, Negative Carotid Bruits Lungs: - - decreased breath sounds in left lower lung smith with few crackles auscultated. Diminished air entry due to poor inspiratory effort from pain. Cardiovascular: Regular rate, Regular Rhythm, Normal S1, Normal S2, No murmurs Abdomen: Bowel Sounds Present, Soft, Non Tender, Non-Distended, No Hepato-splenomegaly Extremities: No clubbing, No cyanosis, No edema, Capillary Refill Less than 3 Seconds Skin: No rashes, No breakdown Musculoskeletal: - - tenderness on palpation of right lower rib cage Lymphatic: No Cervical, Supraclavicular, or Inguinal Adenopathy Neurological: Cranial nerves II-XII grossly intact Psych/Mental Status: Normal Affect, Appropriate, Alert and oriented to time, place, person, mood and affect Vital Signs Temp Pulse Resp BP Pulse Ox 98.2 F 60 20 H 149/102 H 97 12/27/17 09:11 12/27/17 09:42 12/27/17 09:42 12/27/17 09:11 12/27/17 09:11 Oxygen Delivery Method Room Air Weight: 165 lb Body Mass Index (BMI) 23.0 Finger Stick Blood Glucose 125 Laboratory Tests Past 24 Hrs 12/27/17 12/27/17 12/27/17 09:47 09:47 09:47 WBC 10.1 RBC 4.74 Hgb 15.3 Hct 42.6 MCV 89.9 MCH 32.3 H MCHC 35.9 RDW 12.7 RDW Differential 41.2 Plt Count 278 MPV 10.5 Immature Gran % (Auto) 0.200 Neut % (Auto) 76.5 H Lymph % (Auto) 13.1 L [place] % (Auto) 9.3 Eos % (Auto) 0.6 Baso % (Auto) 0.3 Absolute Neuts (auto) 7.7 Absolute Lymphs (auto) 1.32 Total Counted Not Reportable Sodium 130 L Potassium 5.0 Chloride 92 L Carbon Dioxide 24.0 Anion Gap 14 BUN 28 H Creatinine 1.26 Estim Creat Clear Calc 70.12 Est GFR (MDRD) Af Amer 76 Est GFR (MDRD) Non-Af 63 BUN/Creatinine Ratio 22.2 H Glucose 477 H* Lactic Acid 1.8 Calcium 10.0 Total Bilirubin 0.50 AST 15 ALT 35 Alkaline Phosphatase 210 H Troponin I < 0.015 B-Natriuretic Peptide Total Protein 8.3 H Albumin 3.8 Globulin 4.5 H Albumin/Globulin Ratio 0.8 L Urine Color Urine Clarity Urine pH Ur Specific [place] Urine Protein Urine Glucose (UA) Urine Ketones Urine Occult Blood Urine Nitrite Urine Bilirubin Urine Urobilinogen Ur Leukocyte Esterase Urine RBC Urine WBC Ur Squamous Epith Cells Urine Bacteria Urine Mucus 12/27/17 12/27/17 09:47 10:24 WBC RBC Hgb Hct MCV MCH MCHC RDW RDW Differential Plt Count MPV Immature Gran % (Auto) Neut % (Auto) Lymph % (Auto) [place] % (Auto) Eos % (Auto) Baso % (Auto) Absolute Neuts (auto) Absolute Lymphs (auto) Total Counted Sodium Potassium Chloride Carbon Dioxide Anion Gap BUN Creatinine Estim Creat Clear Calc Est GFR (MDRD) Af Amer Est GFR (MDRD) Non-Af BUN/Creatinine Ratio Glucose Lactic Acid Calcium Total Bilirubin AST ALT Alkaline Phosphatase Troponin I B-Natriuretic Peptide 160.6 H Total Protein Albumin Globulin Albumin/Globulin Ratio Urine Color Yellow Urine Clarity Clear Urine pH 6.0 Ur Specific [place] 1.010 Urine Protein 30 H Urine Glucose (UA) 1000 H Urine Ketones 5 H Urine Occult Blood 10 H Urine Nitrite Negative Urine Bilirubin Negative Urine Urobilinogen Normal Ur Leukocyte Esterase Negative Urine RBC 0-5 SEEN Urine WBC 0 SEEN Ur Squamous Epith Cells 0-5 SEEN Urine Bacteria 0 SEEN Urine Mucus 0 SEEN Diagnostic Data Chest X-Ray 12/27/17 10:28 IMPRESSION: Stable cardiomegaly, low volume inspiration and atelectasis/scarring at the left base. No focal consolidations or other acute abnormality identified. Electronically Signed: Cj Cunningham MD at 11:10 EST , Service support , Assessment/Plan All Active Problems Shortness of breath (Acute) Pleuritic chest pain (Acute) 57 y.o male admitted with a complaint of fever, chills, pleuritic chest pain, SOB and productive cough 1. Community acquired pneumonia based on clinical suspicion CXR showed no infiltrate; has no leucocytosis; received the flu shot. will check urine for strep and legionella antigens. Get sputum cultures and blood cultures. Started on IV ceftriaxone and azithromycin in the ED. We will continue IVF NS 100cc/hr tylenol for pain 2. Hyponatremia Sodium is 130. Baseline is usually within normal limits. Cause of this is unclear as patient does not look dehydrated noisy fluid overloaded. Will check serum osmolality. Will hydrate with IV fluid normal saline for now. Also has pacemaker and ICD in place to the cause for this is unclear Of note patient does have extensive smoking history though chest x-ray did not show any lung nodule. 3. 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 Diabetes mellitus Blood sugar was 477 on admission. Is on insulin detemir 25IU bid and claims compliance with it and states he last took it this morning. Will check A1c. Insulin Sliding scale. Accu-Cheks AC at bedtime. 5. History of aortic valve coarctation s/p valve replacement Also has pacemaker and ICD in place the reason for this is not clear Will monitor 6. Hyperlipidemia: On statin 7. Hypertension: On lisinopril and metoprolol DVT prophylaxis: heparin Code status: full code. Counseled about different types of CODE STATUS including DNR CC, DNR CC and full code. Patient elects to be full code. Total [id number] time 16 minutes. Code Visit OBSV E&M: 03505 Initial observation care L3 Procedures: 33592 Advncd Care Plan 30 Min
--- NOTE | 2017-12-27 12:17 | HP.PCM_ITS ---
Problem List (1) Shortness of breath Status: Acute (2) Pleuritic chest pain Status: Acute History of Present Illness Date of Admission: 12/27/17 Chief Complaint: shortness of breath, fever, pleuritic chest pain The patient is a 57 year old M with past medical history of hypertension, diabetes mellitus, coarctation of aorta status post surgery, status post aortic valve replacement and placement of ICD. He was admitted through the ED on 12/27/2017 with a complaint of left-sided chest pain, fever and shortness of breath which have been going on for a few days. 3 days ago, patient states he was sitting the chest by his desk at work and on going to an urgent care center he was told that he had fractured some left ribs. He was given some pain medication. However pain persisted and he gradually became short of breath. He had subjective fever and chills and also had a cough which was productive of greenish sputum. Today he went back to the urgent care and was told to come to the ED. In the ED, vitals were significant for temperature of 98.2, blood pressure 149/102, respiratory rate of 20 and pulse rate of 60. Chemistry shows sodium of 130 and glucose of 477 with initial troponin which was negative. He had BNP of 160.6. CBC showed no leukocytosis. Chest x-ray showed stable cardiomegaly with low volume inspiration and atelectasis versus scarring at the left base with no focal consultations or other acute abnormality identified. He is been admitted to be managed for probable pneumonia based on clinical suspicion. [] 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) Sick sinus syndrome (Chronic) Diabetes mellitus, type II (Chronic) HTN (hypertension) (Chronic) Tobacco use (Chronic) Aortic aneurysm (Chronic) H/O aortic valve replacement (Chronic) Allergies No Known Allergies Allergy (Verified 08/30/17 19:42) Home Medications: Ambulatory Orders Medication Instructions Recorded Insulin Detemir [Levemir] 25 units SC BID 06/20/16 Lisinopril [Zestril] 20 mg PO DAILY 06/20/16 Metoprolol Tartrate 100 mg PO BID 06/20/16 Acetaminophen [Tylenol Tablet] 500 mg PO Q6H PRN PRN tablet 04/02/17 Atorvastatin Calcium [Lipitor] 40 mg PO QHS 04/02/17 Fluoxetine HCl [Prozac] 40 mg PO DAILY 04/02/17 Multivitamin [Daily Multiple 1 each PO DAILY 12/27/17 Vitamin] Surgical History: - - Aortic aneurysm repair and aortic valve replacement (bovine) with total 3 separate surgies, most recent 04/2016 [facility], R inguinal hernia repair. Psychiatric History: No pertinent psych hx Lives: Spouse/ Significant Other Smoking Status: Current every day smoker - one pack per day for 25 years. Alcohol: Heavy - says he drinks at least a pint of screwdriver on the weekends Drugs: None - *Family History Maternal History Items: Dementia Paternal History Items: Heart Disease Review of Systems Constitutional: Reports: Chills, Fever. Denies: Anorexia, Night Sweats, Weakness, Fatigue Eyes: Denies: Blurred vision HEENT: Denies: Head Aches, Sinus Congestion, Sinus Drainage Cardiovascular: Reports: Chest Pain - left sided chest pleuritic chest pain. Denies: Chest Pressure, Edema, Heaviness, Light Headedness Respiratory: Reports: Cough, Pleuritic Pain, Sputum production - greenish sputum. Denies: Wheezing Gastrointestinal: Denies: Abdominal Pain, Nausea, Vomiting Genitourinary: Denies: Dysuria Musculoskeletal: Denies: Joint Pain, Joint Tenderness Skin: Denies: Rash, Wounds Neurological: Denies: Numbness, Tingling, Focal weakness Psychiatric: Denies: Anxiety, Depression, Homicidal Ideations, Suicidal Ideations Hematologic/ Lymphatic: Denies: Easy Bruising, Easy Bleeding VTE Information - Inpt Only VTE Present on Admission: No VTE Pharm Prophylaxis ordered?: Yes Patient Problems: Active and Suspected Problems Shortness of breath (Acute) Pleuritic chest pain (Acute) - Physical Exam General: Alert, Oriented x3, Cooperative, No apparent distress HEENT: Atraumatic, PERRLA, EOMI, Normocephalic Oral: Moist Mucosa Neck: Supple, No JVD, Negative Carotid Bruits Lungs: - - decreased breath sounds in left lower lung smith with few crackles auscultated. Diminished air entry due to poor inspiratory effort from pain. Cardiovascular: Regular rate, Regular Rhythm, Normal S1, Normal S2, No murmurs Abdomen: Bowel Sounds Present, Soft, Non Tender, Non-Distended, No Hepato- splenomegaly Extremities: No clubbing, No cyanosis, No edema, Capillary Refill Less than 3 Seconds Skin: No rashes, No breakdown Musculoskeletal: - - tenderness on palpation of right lower rib cage Lymphatic: No Cervical, Supraclavicular, or Inguinal Adenopathy Neurological: Cranial nerves II-XII grossly intact Psych/Mental Status: Normal Affect, Appropriate, Alert and oriented to time, place, person, mood and affect Vital Signs Temp Pulse Resp BP Pulse Ox 98.2 F 60 20 H 149/102 H 97 12/27/17 09:11 12/27/17 09:42 12/27/17 09:42 12/27/17 09:11 12/27/17 09:11 Oxygen Delivery Method Room Air Weight: 165 lb Body Mass Index (BMI) 23.0 Finger Stick Blood Glucose 125 Laboratory Tests Past 24 Hrs 12/27/17 12/27/17 12/27/17 09:47 09:47 09:47 WBC 10.1 RBC 4.74 Hgb 15.3 Hct 42.6 MCV 89.9 MCH 32.3 H MCHC 35.9 RDW 12.7 RDW Differential 41.2 Plt Count 278 MPV 10.5 Immature Gran % (Auto) 0.200 Neut % (Auto) 76.5 H Lymph % (Auto) 13.1 L [place] % (Auto) 9.3 Eos % (Auto) 0.6 Baso % (Auto) 0.3 Absolute Neuts (auto) 7.7 Absolute Lymphs (auto) 1.32 Total Counted Not Reportable Sodium 130 L Potassium 5.0 Chloride 92 L Carbon Dioxide 24.0 Anion Gap 14 BUN 28 H Creatinine 1.26 Estim Creat Clear Calc 70.12 Est GFR (MDRD) Af Amer 76 Est GFR (MDRD) Non-Af 63 BUN/Creatinine Ratio 22.2 H Glucose 477 H* Lactic Acid 1.8 Calcium 10.0 Total Bilirubin 0.50 AST 15 ALT 35 Alkaline Phosphatase 210 H Troponin I < 0.015 B-Natriuretic Peptide Total Protein 8.3 H Albumin 3.8 Globulin 4.5 H Albumin/Globulin Ratio 0.8 L Urine Color Urine Clarity Urine pH Ur Specific [place] Urine Protein Urine Glucose (UA) Urine Ketones Urine Occult Blood Urine Nitrite Urine Bilirubin Urine Urobilinogen Ur Leukocyte Esterase Urine RBC Urine WBC Ur Squamous Epith Cells Urine Bacteria Urine Mucus 12/27/17 12/27/17 09:47 10:24 WBC RBC Hgb Hct MCV MCH MCHC RDW RDW Differential Plt Count MPV Immature Gran % (Auto) Neut % (Auto) Lymph % (Auto) [place] % (Auto) Eos % (Auto) Baso % (Auto) Absolute Neuts (auto) Absolute Lymphs (auto) Total Counted Sodium Potassium Chloride Carbon Dioxide Anion Gap BUN Creatinine Estim Creat Clear Calc Est GFR (MDRD) Af Amer Est GFR (MDRD) Non-Af BUN/Creatinine Ratio Glucose Lactic Acid Calcium Total Bilirubin AST ALT Alkaline Phosphatase Troponin I B-Natriuretic Peptide 160.6 H Total Protein Albumin Globulin Albumin/Globulin Ratio Urine Color Yellow Urine Clarity Clear Urine pH 6.0 Ur Specific [place] 1.010 Urine Protein 30 H Urine Glucose (UA) 1000 H Urine Ketones 5 H Urine Occult Blood 10 H Urine Nitrite Negative Urine Bilirubin Negative Urine Urobilinogen Normal Ur Leukocyte Esterase Negative Urine RBC 0-5 SEEN Urine WBC 0 SEEN Ur Squamous Epith Cells 0-5 SEEN Urine Bacteria 0 SEEN Urine Mucus 0 SEEN Diagnostic Data Chest X-Ray 12/27/17 10:28 IMPRESSION: Stable cardiomegaly, low volume inspiration and atelectasis/scarring at the left base. No focal consolidations or other acute abnormality identified. Electronically Signed: Cj Cunningham MD at 11:10 EST , Service support , Assessment/Plan All Active Problems Shortness of breath (Acute) Pleuritic chest pain (Acute) 57 y.o male admitted with a complaint of fever, chills, pleuritic chest pain, SOB and productive cough 1. Community acquired pneumonia * based on clinical suspicion * CXR showed no infiltrate; * has no leucocytosis; received the flu shot. * will check urine for strep and legionella antigens. * Get sputum cultures and blood cultures. * Started on IV ceftriaxone and azithromycin in the ED. We will continue * IVF NS 100cc/hr * tylenol for pain * 2. Hyponatremia * Sodium is 130. Baseline is usually within normal limits. Cause of this is unclear as patient does not look dehydrated noisy fluid overloaded. * Will check serum osmolality. * Will hydrate with IV fluid normal saline for now. Also has pacemaker and ICD in place to the cause for this is unclear * Of note patient does have extensive smoking history though chest x-ray did not show any lung nodule. * 3. 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 Diabetes mellitus * Blood sugar was 477 on admission. Is on insulin detemir 25IU bid and claims compliance with it and states he last took it this morning. * Will check A1c. * Insulin Sliding scale. Accu-Cheks AC at bedtime. * 5. History of aortic valve coarctation s/p valve replacement * Also has pacemaker and ICD in place the reason for this is not clear * Will monitor * 6. Hyperlipidemia: On statin 7. Hypertension: On lisinopril and metoprolol DVT prophylaxis: heparin Code status: * full code. Counseled about different types of CODE STATUS including DNR CC, DNR CC and full code. Patient elects to be full code. Total [id number] time 16 minutes. Code Visit OBSV E&M: 15629 Initial observation care L3 Procedures: [id number] Advncd Care Plan 30 Min
[2017-12-27] MEDS: Ceftriaxone 1 GM/50 ML BAG IV ×2 (13:32→21:57)
[2017-12-27] MEDS: 0.9% Normal Saline 1,000 ML 75 ML IV (13:38)
[2017-12-27] MEDS: Insulin Lispro 100 UNIT/ML INSULN.PEN SC ×3 (13:38→21:48)
[2017-12-27] MEDS: Acetaminophen 325 MG Tablet 650 MG PO (14:02)
[2017-12-27 14:06] LABS: Bedside Glucose 443 mg/dL (70-110)
[2017-12-27 14:16] LABS: Osmolality, Serum 302 mOsm/KG (275-295)
[2017-12-27] MEDS: Ibuprofen 400 MG Tablet PO (14:29)
--- NOTE | 2017-12-27 14:39 | NURSING ---
pt reports smoking 1 ppd-- refusing nicotene gum and/ or patch.
[2017-12-27 16:35] LABS: Bedside Glucose 316 mg/dL (70-110)
[2017-12-27 17:14] LABS: Hemoglobin A1c 13.2 % (4.2-6.3)
[2017-12-27] MEDS: Atorvastatin Calcium 40 MG Tablet PO (21:49)
[2017-12-27] MEDS: Metoprolol Tartrate 100 MG Tablet PO (21:49)
[2017-12-27] MEDS: MELATONIN 3 MG TABLET PO (21:50)
[2017-12-27 21:56] LABS: Bedside Glucose 216 mg/dL (70-110)
[2017-12-28] VITALS (13 sets, daily range): BP systolic 116–158; BP diastolic 74–83; PULSE 59–61; RESP 16–18; TEMP 36.9–37.8; O2SAT 93–95
[2017-12-28] MEDS: Ibuprofen 400 MG Tablet PO ×3 (04:16→22:28)
[2017-12-28] MEDS: 0.9% Normal Saline 1,000 ML 75 ML IV (04:16)
[2017-12-28] MEDS: Insulin Lispro 100 UNIT/ML INSULN.PEN SC ×4 (06:41→22:29)
[2017-12-28 06:46] LABS: Basophil# 0.03 X10^3/uL; Basophil% 0.3 % (0-1); Eosinophil# 0.12 X10^3/uL; Eosinophils% 1.1 % (0-5); Hematocrit 37.6 % (40-54); Lymphocyte % 10.5 % (19-41); Mean Corp Hgb Conc 34.6 g/gl (32-36); Mean Corpuscular Hgb 31.9 pg (27.0-32.0); Mean Corpuscular Volume 92.4 fL (80-94); Mean Platelet Vol. 10.7 fl (6.2-12.0); Monocyte# 1.02 X10^3/uL; Monocyte% 8.9 % (0-10); Neutrophil # 9.02 X10^3/uL (2.7-7.7); Neutrophil % 78.9 % (47-70); Platelet Count 234 K/mm3 (150-450); RBC Distribution Width CV 12.8 % (11.6-14.6); RBC Distribution Width SD 42.2 fl (35.1-43.9); Red Blood Count 4.07 M/mm3 (4.6-6.2); White Blood Count 11.4 K/mm3 (4.4-11.0)
[2017-12-28 06:58] LABS: POSITIVE COUNT NO; POSITIVE DIFFERENTIAL NO; POSITIVE MORPHOLOGY NO
[2017-12-28 07:07] LABS: Anion Gap 8 (5-15); BUN 21 mg/dL (7-18); Calcium,Total 8.2 mg/dL (8.5-10.1); Chloride 104 mmol/L (98-107); Creatinine, Serum 0.84 mg/dL (0.70-1.30); EST Glomerular Filtration Rate 101 mL/min (>60); Est Glom Filt Rate - Afr Amer 122 mL/min (>60); Glucose 177 mg/dL (74-106); Potassium 3.9 mmol/L (3.5-5.1); Sodium Level 136 mmol/L (136-145)
[2017-12-28] MEDS: Acetaminophen 325 MG Tablet 650 MG PO ×2 (07:34→16:32)
[2017-12-28] MEDS: Multivitamins,Therapeutic Tablet 1 TABLET PO (09:55)
[2017-12-28] MEDS: Metoprolol Tartrate 100 MG Tablet PO ×2 (09:56→22:28)
[2017-12-28] MEDS: FLUoxetine 20 MG Capsule 40 MG PO (09:56)
[2017-12-28] MEDS: Enoxaparin 40 MG/0.4 ML Syringe SC (09:56)
[2017-12-28] MEDS: Lisinopril 20 MG Tablet PO (09:57)
[2017-12-28] MEDS: Ceftriaxone 1 GM/50 ML BAG IV ×2 (09:57→22:29)
[2017-12-28 10:11] LABS: Bedside Glucose 201 mg/dL (70-110)
--- NOTE | 2017-12-28 10:48 | PCM.PN.HOSP ---
Patient Problems: Active and Suspected Problems Shortness of breath (Acute) Pleuritic chest pain (Acute) Subjective: Patient seen and examined. He had an uneventful night but still complains of pain in his left chest and also pleuritic chest pain with breathing. He denies any fever or chills and still has a cough which is productive of greenish sputum. He denies any palpitations or dizziness, lightheadedness, abdominal pain, diarrhea or vomiting. Review of systems otherwise negative. Labs and vitals reviewed. Vitals/I&O's: Vital Signs Temp Pulse Resp BP Pulse Ox 98.8 F 59 L 18 123/83 H 93 12/28/17 07:27 12/28/17 09:56 12/28/17 07:27 12/28/17 09:56 12/28/17 07:27 Oxygen Delivery Method Room Air Weight: 153 lb 14.122 oz Body Mass Index (BMI) 21.4 Finger Stick Blood Glucose 125 Intake and Output for Last 24 Hours 12/26/17 12/27/17 12/28/17 23:59 23:59 23:59 Intake Total 1228 / 1228 1781 / 1781 Balance 1228 / 1228 1781 / 1781 General: Alert, Oriented x3, Cooperative HEENT: Atraumatic, PERRLA, EOMI, Normocephalic Oral: Moist Mucosa Neck: Supple, No JVD, Negative Carotid Bruits Lungs: - - has coarse crackles in left lower lung field, with no wheezing. Cardiovascular: Regular rate, Regular Rhythm, Normal S1, Normal S2, No murmurs Abdomen: Bowel Sounds Present, Soft, Non Tender, Non-Distended, No Hepato-splenomegaly Extremities: No clubbing, No cyanosis, No edema, Capillary Refill Less than 3 Seconds Skin: No rashes, No breakdown Musculoskeletal: No Tenderness to Palpation of Joints or Extremities Lymphatic: No Cervical, Supraclavicular, or Inguinal Adenopathy Neurological: Cranial nerves II-XII grossly intact Psych/Mental Status: Normal Affect, Appropriate, Alert and oriented to time, place, person, mood and affect Microbiology Past 72 Hours 12/27/17 10:24 Urine, Clean Catch Legionella Antigen - Final 12/27/17 10:24 Urine, Clean Catch Streptococcus pneumoniae Antigen (M - Final Laboratory Results 12/27/17 09:47: Serum Osmolality 302 H 12/27/17 13:15: POC Glucose 443 H 12/27/17 16:18: Hemoglobin A1c 13.2 H 12/27/17 16:18: POC Glucose 316 H 12/27/17 21:47: POC Glucose 216 H 12/28/17 05:45: WBC 11.4 H, RBC 4.07 L, Hgb 13.0, Hct 37.6 L, MCV 92.4, MCH 31.9, MCHC 34.6, RDW 12.8, RDW Differential 42.2, Plt Count 234, MPV 10.7, Immature Gran % (Auto) 0.300, Neut % (Auto) 78.9 H, Lymph % (Auto) 10.5 L, [place] % (Auto) 8.9, Eos % (Auto) 1.1, Baso % (Auto) 0.3, Absolute Neuts (auto) 9.0 H, Absolute Lymphs (auto) 1.20, Total Counted Not Reportable 12/28/17 05:45: Sodium 136, Potassium 3.9, Chloride 104, Carbon Dioxide 24.0, Anion Gap 8, BUN 21 H, Creatinine 0.84, Estim Creat Clear Calc 98.10, Est GFR (MDRD) Af Amer 122, Est GFR (MDRD) Non-Af 101, BUN/Creatinine Ratio 25.0 H, Glucose 177 H, Calcium 8.2 L 12/28/17 06:39: POC Glucose 201 H Diagnostic Data Chest X-Ray 12/27/17 10:28 IMPRESSION: Stable cardiomegaly, low volume inspiration and atelectasis/scarring at the left base. No focal consolidations or other acute abnormality identified. Electronically Signed: Cj Cunningham MD at 11:10 EST , Service support , Current Medications Acetaminophen (Tylenol) 650 mg PO Q6H PRN PRN PRN Reason: PAIN Last Admin: 12/28/17 07:34 Dose: 650 mg Atorvastatin Calcium (Lipitor) 40 mg PO QHS [facility] Last Admin: 12/27/17 21:49 Dose: 40 mg Enoxaparin Sodium (Lovenox) 40 mg SC DAILY@1000 KUNAL Last Admin: 12/28/17 09:56 Dose: 40 mg Fluoxetine HCl (Prozac) 40 mg PO DAILY [facility] Last Admin: 12/28/17 09:56 Dose: 40 mg Sodium Chloride () 1,000 mls @ 75 mls/hr IV .[id number] [facility] Stop: 12/28/17 15:40 Last Admin: 12/28/17 04:16 Dose: 75 mls/hr Azithromycin 500 mg/ Dextrose 255 mls @ 250 mls/hr IV Q24 [facility] Ceftriaxone Sodium (Rocephin) 1 gm in 50 mls @ 100 mls/hr IV Q12 [facility] Last Admin: 12/28/17 09:57 Dose: 100 mls/hr Ibuprofen (Motrin) 400 mg PO Q6H PRN PRN PRN Reason: MILD PAIN (-04/17) Last Admin: 12/28/17 04:16 Dose: 400 mg Insulin Glargine (Lantus (Bkc)) 25 units SC BID [facility] Last Admin: 12/28/17 09:55 Dose: 25 u Insulin Human Lispro (Humalog Kwikpen (Bk)) 0 unit SC ACHS [facility]; Protocol Last Admin: 12/28/17 06:41 Dose: 4 units Lisinopril (Zestril) 20 mg PO DAILY [facility] Last Admin: 12/28/17 09:57 Dose: 20 mg Magnesium Hydroxide (Milk Of Magnesia) 30 ml PO DAILY PRN PRN PRN Reason: Constipation Melatonin (Melatonin) 3 mg PO QHS [facility] Last Admin: 12/27/17 21:50 Dose: 3 mg Metoprolol Tartrate (Lopressor (Beta Thiago)) 100 mg PO BID [facility] Last Admin: 12/28/17 09:56 Dose: 100 mg Multivitamins (Multivitamin) 1 tablet PO DAILY@0800 [facility] Last Admin: 12/28/17 09:55 Dose: 1 tablet Sodium Chloride () 5 - 30 ml IV UD PRN PRN Reason: SALINE FLUSH Medical Necessity - Tobacco Use Smoking Status: Current every day smoker Assessment/Plan All Active Problems Shortness of breath (Acute) Pleuritic chest pain (Acute) 1. Community acquired pneumonia still ahs a cough productive of greenish sputum denies any fever or chills urine for strep and legionella were negative blood cultures and sputum cultures pending on IV ceftriaxone and azithromycin will continue IV antibiotics for one more day. Patient says he doesnt feel well enough to go home today tylenol for pain 2. Hyponatremia Resolved. Sodium is up to 136 from 130 today. DC IV fluids and monitor. 3. Right rib fractures due to trauma tylenol for pain 4. Diabetes mellitus Blood sugar was 477 on admission. Is on insulin detemir 25IU bid and claims compliance with it and states he last took it this morning. A1c is 13.2. Blood sugar was 177 this morning. Patient is clearly not compliant with his insulin. Patient counseled strongly about compliance with this insulin dose. Insulin Sliding scale. Accu-Cheks AC at bedtime. will adjust insulin dose as needed 5. History of aortic valve coarctation s/p valve replacement Also has pacemaker and ICD in place the reason for this is not clear Will monitor 6. Hyperlipidemia: On statin 7. Hypertension: On lisinopril and metoprolol DVT prophylaxis: heparin Code status: full code. Code Visit Inpatient E&M: 76087 Subs Hosp L2
--- NOTE | 2017-12-28 10:54 | PN_ITS ---
Patient Problems: Active and Suspected Problems Shortness of breath (Acute) Pleuritic chest pain (Acute) Subjective: Patient seen and examined. He had an uneventful night but still complains of pain in his left chest and also pleuritic chest pain with breathing. He denies any fever or chills and still has a cough which is productive of greenish sputum. He denies any palpitations or dizziness, lightheadedness, abdominal pain, diarrhea or vomiting. Review of systems otherwise negative. Labs and vitals reviewed. Vitals/I&O's: Vital Signs Temp Pulse Resp BP Pulse Ox 98.8 F 59 L 18 123/83 H 93 12/28/17 07:27 12/28/17 09:56 12/28/17 07:27 12/28/17 09:56 12/28/17 07:27 Oxygen Delivery Method Room Air Weight: 153 lb 14.122 oz Body Mass Index (BMI) 21.4 Finger Stick Blood Glucose 125 Intake and Output for Last 24 Hours 12/26/17 12/27/17 12/28/17 23:59 23:59 23:59 Intake Total 1228 / 1228 1781 / 1781 Balance 1228 / 1228 1781 / 1781 General: Alert, Oriented x3, Cooperative HEENT: Atraumatic, PERRLA, EOMI, Normocephalic Oral: Moist Mucosa Neck: Supple, No JVD, Negative Carotid Bruits Lungs: - - has coarse crackles in left lower lung field, with no wheezing. Cardiovascular: Regular rate, Regular Rhythm, Normal S1, Normal S2, No murmurs Abdomen: Bowel Sounds Present, Soft, Non Tender, Non-Distended, No Hepato- splenomegaly Extremities: No clubbing, No cyanosis, No edema, Capillary Refill Less than 3 Seconds Skin: No rashes, No breakdown Musculoskeletal: No Tenderness to Palpation of Joints or Extremities Lymphatic: No Cervical, Supraclavicular, or Inguinal Adenopathy Neurological: Cranial nerves II-XII grossly intact Psych/Mental Status: Normal Affect, Appropriate, Alert and oriented to time, place, person, mood and affect Microbiology Past 72 Hours 12/27/17 10:24 Urine, Clean Catch Legionella Antigen - Final 12/27/17 10:24 Urine, Clean Catch Streptococcus pneumoniae Antigen (M - Final Laboratory Results 12/27/17 09:47: Serum Osmolality 302 H 12/27/17 13:15: POC Glucose 443 H 12/27/17 16:18: Hemoglobin A1c 13.2 H 12/27/17 16:18: POC Glucose 316 H 12/27/17 21:47: POC Glucose 216 H 12/28/17 05:45: WBC 11.4 H, RBC 4.07 L, Hgb 13.0, Hct 37.6 L, MCV 92.4, MCH 31.9, MCHC 34.6, RDW 12.8, RDW Differential 42.2, Plt Count 234, MPV 10.7, Immature Gran % (Auto) 0.300, Neut % (Auto) 78.9 H, Lymph % (Auto) 10.5 L, [place] % (Auto) 8.9, Eos % (Auto) 1.1, Baso % (Auto) 0.3, Absolute Neuts (auto) 9.0 H, Absolute Lymphs (auto) 1.20, Total Counted Not Reportable 12/28/17 05:45: Sodium 136, Potassium 3.9, Chloride 104, Carbon Dioxide 24.0, Anion Gap 8, BUN 21 H, Creatinine 0.84, Estim Creat Clear Calc 98.10, Est GFR (MDRD) Af Amer 122, Est GFR (MDRD) Non-Af 101, BUN/Creatinine Ratio 25.0 H, Glucose 177 H, Calcium 8.2 L 12/28/17 06:39: POC Glucose 201 H Diagnostic Data Chest X-Ray 12/27/17 10:28 IMPRESSION: Stable cardiomegaly, low volume inspiration and atelectasis/scarring at the left base. No focal consolidations or other acute abnormality identified. Electronically Signed: Cj Cunningham MD at 11:10 EST , Service support , Current Medications Acetaminophen (Tylenol) 650 mg PO Q6H PRN PRN PRN Reason: PAIN Last Admin: 12/28/17 07:34 Dose: 650 mg Atorvastatin Calcium (Lipitor) 40 mg PO QHS [facility] Last Admin: 12/27/17 21:49 Dose: 40 mg Enoxaparin Sodium (Lovenox) 40 mg SC DAILY@1000 [facility] Last Admin: 12/28/17 09:56 Dose: 40 mg Fluoxetine HCl (Prozac) 40 mg PO DAILY [facility] Last Admin: 12/28/17 09:56 Dose: 40 mg Sodium Chloride () 1,000 mls @ 75 mls/hr IV .[id number] [facility] Stop: 12/28/17 15:40 Last Admin: 12/28/17 04:16 Dose: 75 mls/hr Azithromycin 500 mg/ Dextrose 255 mls @ 250 mls/hr IV Q24 [facility] Ceftriaxone Sodium (Rocephin) 1 gm in 50 mls @ 100 mls/hr IV Q12 [facility] Last Admin: 12/28/17 09:57 Dose: 100 mls/hr Ibuprofen (Motrin) 400 mg PO Q6H PRN PRN PRN Reason: MILD PAIN (-04/17) Last Admin: 12/28/17 04:16 Dose: 400 mg Insulin Glargine (Lantus (Bkc)) 25 units SC BID [facility] Last Admin: 12/28/17 09:55 Dose: 25 u Insulin Human Lispro (Humalog Kwikpen (Bkc)) 0 unit SC ACHS [facility]; Protocol Last Admin: 12/28/17 06:41 Dose: 4 units Lisinopril (Zestril) 20 mg PO DAILY [facility] Last Admin: 12/28/17 09:57 Dose: 20 mg Magnesium Hydroxide (Milk Of Magnesia) 30 ml PO DAILY PRN PRN PRN Reason: Constipation Melatonin (Melatonin) 3 mg PO QHS [facility] Last Admin: 12/27/17 21:50 Dose: 3 mg Metoprolol Tartrate (Lopressor (Beta Thiago)) 100 mg PO BID [facility] Last Admin: 12/28/17 09:56 Dose: 100 mg Multivitamins (Multivitamin) 1 tablet PO DAILY@0800 [facility] Last Admin: 12/28/17 09:55 Dose: 1 tablet Sodium Chloride () 5 - 30 ml IV UD PRN PRN Reason: SALINE FLUSH Medical Necessity - Tobacco Use Smoking Status: Current every day smoker Assessment/Plan All Active Problems Shortness of breath (Acute) Pleuritic chest pain (Acute) 1. Community acquired pneumonia * still ahs a cough productive of greenish sputum * denies any fever or chills * urine for strep and legionella were negative * blood cultures and sputum cultures pending * on IV ceftriaxone and azithromycin * will continue IV antibiotics for one more day. Patient says he doesnt feel well enough to go home today * tylenol for pain * 2. Hyponatremia * Resolved. Sodium is up to 136 from 130 today. * DC IV fluids and monitor. * 3. Right rib fractures due to trauma * tylenol for pain * 4. Diabetes mellitus * Blood sugar was 477 on admission. Is on insulin detemir 25IU bid and claims compliance with it and states he last took it this morning. * A1c is 13.2. Blood sugar was 177 this morning. Patient is clearly not compliant with his insulin. Patient counseled strongly about compliance with this insulin dose. * Insulin Sliding scale. Accu-Cheks AC at bedtime. * will adjust insulin dose as needed * 5. History of aortic valve coarctation s/p valve replacement * Also has pacemaker and ICD in place the reason for this is not clear * Will monitor * 6. Hyperlipidemia: On statin 7. Hypertension: On lisinopril and metoprolol DVT prophylaxis: heparin Code status: * full code. Code Visit Inpatient E&M: 07430 Subs Hosp L2
[2017-12-28 11:41] LABS: Bedside Glucose 327 mg/dL (70-110)
[2017-12-28] MEDS: Lidocaine 5% Patch 1 PATCH TOPICAL ×2 (13:50→13:51)
[2017-12-28 16:36] LABS: Bedside Glucose 255 mg/dL (70-110)
[2017-12-28] MEDS: MELATONIN 3 MG TABLET PO (22:28)
[2017-12-28] MEDS: Atorvastatin Calcium 40 MG Tablet PO (22:30)
[2017-12-28 23:11] LABS: Bedside Glucose 221 mg/dL (70-110)
[2017-12-29 01:59] VITALS: PULSE 60
[2017-12-29 02:41] VITALS: BP 138/87; PULSE 60; RESP 18; TEMP 36.8; O2SAT 92
[2017-12-29 06:16] LABS: Absolute Lymphocyte Count 1.49 X10^3/ul (0.83-4.51); Absolute Neutrophil Count 6.5 X10^3/uL (2.0-7.7); Basophil# 0.05 X10^3/uL; Basophil% 0.6 % (0-1); Eosinophil# 0.14 X10^3/uL; Eosinophils% 1.6 % (0-5); Hematocrit 37.9 % (40-54); Hemoglobin 12.8 g/dl (13.0-16.5); Lymphocyte # 1.49 X10^3/ul (4.0); Lymphocyte % 16.8 % (19-41); Mean Corp Hgb Conc 33.8 g/gl (32-36); Mean Corpuscular Hgb 31.8 pg (27.0-32.0); Monocyte# 0.73 X10^3/uL; Monocyte% 8.2 % (0-10); Neutrophil # 6.45 X10^3/uL (2.7-7.7); Neutrophil % 72.7 % (47-70); Platelet Count 210 K/mm3 (150-450); RBC Distribution Width CV 13.5 % (11.6-14.6); RBC Distribution Width SD 46.3 fl (35.1-43.9); Red Blood Count 4.03 M/mm3 (4.6-6.2); White Blood Count 8.9 K/mm3 (4.4-11.0)
[2017-12-29 06:20] LABS: POSITIVE COUNT NO; POSITIVE DIFFERENTIAL NO; POSITIVE MORPHOLOGY NO
--- NOTE | 2017-12-29 06:22 | NURSING ---
BS was 77 this morning. Held [employer] and gave OJ. Pt assured me he was asymptomatic. Passing on to day nurse.
[2017-12-29 06:41] LABS: Bedside Glucose 77 mg/dL (70-110)
[2017-12-29 06:45] LABS: Anion Gap 10 (5-15); BUN 17 mg/dL (7-18); BUN/Creat Ratio 21.7 RATIO (10-20); Chloride 111 mmol/L (98-107); Creatinine, Serum 0.78 mg/dL (0.70-1.30); EST Glomerular Filtration Rate 109 mL/min (>60); Est Glom Filt Rate - Afr Amer 132 mL/min (>60); Estimated Creatinine Clearance 105.64 ml/min; Glucose 66 mg/dL (74-106); Potassium 3.8 mmol/L (3.5-5.1); Sodium Level 141 mmol/L (136-145)
--- NOTE | 2017-12-29 08:55 | NURSING ---
Staff noticed patient get on elevator, wearing street clothes. Heart monitor and gown found in pt's bed. Security called by Kelvin GILLIS, as pt had saline lock in his arm. Pt then returned to unit approx 10-15 minutes later. This nurse into room, reminded patient that he could not leave unit. Pt admitted to going outside to smoke, and states I think that was a bad idea. Pt stated he thought he could leave the floor as the doctor said he was going to be discharged today. This nurse removed patients saline lock, pt instructed that he needs to remain on the unit until he has received his discharge paperwork from the MD. Pt voiced understanding. Primary RN Marleny thompson.
[2017-12-29 09:15] VITALS: BP 153/78; PULSE 59; RESP 18; TEMP 36.8; O2SAT 97
[2017-12-29 09:21] VITALS: PULSE 59
[2017-12-29] MEDS: Metoprolol Tartrate 100 MG Tablet PO (09:21)
[2017-12-29] MEDS: FLUoxetine 20 MG Capsule 40 MG PO (09:21)
[2017-12-29] MEDS: Multivitamins,Therapeutic Tablet 1 TABLET PO (09:21)
[2017-12-29] MEDS: Lisinopril 20 MG Tablet PO (09:21)
[2017-12-29] MEDS: Ibuprofen 400 MG Tablet PO (09:27)
--- NOTE | 2017-12-29 10:18 | DCINST_ITS ---
- Discharge Diagnoses Current Active Problems: Current Active and Chronic Problems Shortness of breath (Acute) Pleuritic chest pain (Acute) You will use the following diet at home:: Cardiac Your food should be the consistency of: Regular Your liquids should be the consistency of: Regular/Thin Discharge Activity: Return to Normal Activity Weight Bearing Status: Weight bearing as tolerated Call your doctor if you observe: Fever of 101 or Higher, Coldness, Increased Pain, Shortness of breath, Chest pain Allergies/Adverse Reactions: Allergies No Known Allergies Allergy (Verified 08/30/17 19:42) Medications to take at Discharge Insulin Detemir [Levemir] 25 units SC BID 06/20/16 Lisinopril [Zestril] 20 mg PO DAILY 06/20/16 Metoprolol Tartrate 100 mg PO BID 06/20/16 Atorvastatin Calcium [Lipitor] 40 mg PO QHS 04/02/17 Fluoxetine HCl [Prozac] 40 mg PO DAILY 04/02/17 Multivitamin [Daily Multiple Vitamin] 1 each PO DAILY 12/27/17 Acetaminophen [Tylenol Tablet] 650 mg PO Q6H PRN PRN #30 tablet 12/29/17 Ibuprofen [Motrin] 400 mg PO Q6H PRN PRN #30 tablet 12/29/17 levoFLOXacin tablet [Levaquin tablet] 500 mg PO DAILY #5 tablet 12/29/17 The following prescriptions were given: Acetaminophen [Tylenol Tablet] 650 mg PO Q6H PRN PRN #30 tablet PRN Reason: Mild Pain (scale 0-3)/T>100.7 Ibuprofen [Motrin] 400 mg PO Q6H PRN PRN #30 tablet PRN Reason: Mild Pain (1-3/10) levoFLOXacin tablet [Levaquin tablet] 500 mg PO DAILY #5 tablet Primary Care Physician: Care Physician,No Primary [Primary Care Provider] - Please follow up with your Primary Care Physician in: 1-2 weeks Test Results: Test results from this visit will be discussed in further detail at your follow- up appointment, if applicable. Proposed Discharge Date: 12/29/17
--- NOTE | 2017-12-29 10:18 | PCM.WORK.EX ---
Work/School Excuse Please excuse this person from:: Work From: 12/27/17 through: 12/29/17 Restrictions: No Heavy Lifting
--- NOTE | 2017-12-29 10:18 | PCM.DC.SUM ---
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 No focal consolidations or other acute abnormality identified. Electronically Signed: Cj Cunningham MD at 11:10 EST , Service support , Operations: None Procedures: None Summary of Care Provided: The patient is a 57 year old M with past medical history of hypertension, diabetes mellitus, coarctation of aorta status post surgery, status post aortic valve replacement and placement of ICD. He was admitted through the ED on 12/27/2017 with a complaint of left-sided chest pain, fever and shortness of breath which have been going on for a few days. 3 days prior to admission he had hit his chest on his discussed work and was told he had fractured some left rib subsequent to an urgent care center and had an x-ray. Pain medications did not help resolve pain and he kept on being short of breath. He therefore came into the ED with a complaint of fever and chills and a productive cough as well as the chest pain. He was managed for community-acquired pneumonia based on clinical suspicion. Chest x-ray did not show any evidence of infiltrate. Also also admitted to manage for the left rib fractures due to trauma. Pain improved with administration of pain medication and he was started on IV cefazolin and azithromycin. Patient remained stable condition improving was discharged home on 12/29/2017 with a prescription for p.o. Levaquin times 5 days. He is to follow-up with his primary care doctor. Patient seen and examined prior to discharge. He had no complaints and felt well. He denied any fever chills, any cough or chest pain, any shortness of breath, abdominal pain, diarrhea vomiting. Sided chest pain has improved significantly and shortness of breath has resolved. Labs and vitals reviewed. Home medications reviewed and reconciled. Examination Vitals: Vital Signs Height 5 ft 11 in Weight: 153 lb 14.122 oz Weight in Pounds 153.9 lbs Pulse Ox 97 Temperature 98.2 F Pulse Rate 59 Respiratory Rate 18 Blood Pressure 153/78 Blood Pressure Position Semi-Fowlers General: Alert, Oriented x3, Cooperative HEENT: Atraumatic, PERRLA, EOMI, Normocephalic Oral: Moist Mucosa Neck: Supple, No JVD, Negative Carotid Bruits Lungs: - clear to auscultation Cardiovascular: Regular rate, Regular Rhythm, Normal S1, Normal S2, No murmurs Abdomen: Bowel Sounds Present, Soft, Non Tender, Non-Distended, No Hepato-splenomegaly Extremities: No clubbing, No cyanosis, No edema, Capillary Refill Less than 3 Seconds Skin: No rashes, No breakdown Musculoskeletal: No Tenderness to Palpation of Joints or Extremities Lymphatic: No Cervical, Supraclavicular, or Inguinal Adenopathy Neurological: Cranial nerves II-XII grossly intact Psych/Mental Status: Normal Affect, Appropriate, Alert and oriented to time, place, person, mood and affect Plan as discussed above. - Physical Exam Vital Signs Temp Pulse Resp BP Pulse Ox 98.2 F 59 L 18 153/78 H 97 12/29/17 09:15 12/29/17 09:21 12/29/17 09:15 12/29/17 09:15 12/29/17 09:15 Oxygen Delivery Method Room Air Weight: 153 lb 14.122 oz Body Mass Index (BMI) 21.4 Finger Stick Blood Glucose 125 Intake and Output for Last 24 Hours 12/27/17 12/28/17 12/29/17 23:59 23:59 23:59 Intake Total 1228 / 1228 4241 / 4241 664 / 664 Balance 1228 / 1228 4241 / 4241 664 / 664 Microbiology Past 72 Hours 12/27/17 10:24 Streptococcus pneumoniae Antigen (M - Final Urine, Clean Catch 12/27/17 10:24 Legionella Antigen - Final Urine, Clean Catch Laboratory Tests Past 24 Hrs 12/29/17 12/29/17 05:55 05:55 WBC 8.9 RBC 4.03 L Hgb 12.8 L Hct 37.9 L MCV 94.0 MCH 31.8 MCHC 33.8 RDW 13.5 RDW Differential 46.3 H Plt Count 210 MPV 10.0 Immature Gran % (Auto) 0.100 Neut % (Auto) 72.7 H Lymph % (Auto) 16.8 L [place] % (Auto) 8.2 Eos % (Auto) 1.6 Baso % (Auto) 0.6 Absolute Neuts (auto) 6.5 Absolute Lymphs (auto) 1.49 Total Counted Not Reportable Sodium 141 Potassium 3.8 Chloride 111 H Carbon Dioxide 20.0 L Anion Gap 10 BUN 17 Creatinine 0.78 Estim Creat Clear Calc 105.64 Est GFR (MDRD) Af Amer 132 Est GFR (MDRD) Non-Af 109 BUN/Creatinine Ratio 21.7 H Glucose 66 L Calcium 8.0 L POC Glucose 12/29/17 12/28/17 12/28/17 06:18 22:13 16:28 POC Glucose 77 221 H 255 H 12/28/17 11:15 POC Glucose 327 H Discharge Diet: Low fat/ Low Cholesterol Discharge Activity: Return to Normal Activity Weight Bearing Status: Weight bearing as tolerated Call your doctor if you observe: Fever of 101 or Higher, Coldness, Increased Pain, Shortness of breath, Chest pain Home Medications: Medications to take at Discharge Insulin Detemir [Levemir] 25 units SC BID 06/20/16 Lisinopril [Zestril] 20 mg PO DAILY 06/20/16 Metoprolol Tartrate 100 mg PO BID 06/20/16 Atorvastatin Calcium [Lipitor] 40 mg PO QHS 04/02/17 Fluoxetine HCl [Prozac] 40 mg PO DAILY 04/02/17 Multivitamin [Daily Multiple Vitamin] 1 each PO DAILY 12/27/17 Acetaminophen [Tylenol Tablet] 650 mg PO Q6H PRN PRN #30 tablet 12/29/17 Ibuprofen [Motrin] 400 mg PO Q6H PRN PRN #30 tablet 12/29/17 levoFLOXacin tablet [Levaquin tablet] 500 mg PO DAILY #5 tablet 12/29/17 Following Prescrptions Were Given to Patient: Acetaminophen [Tylenol Tablet] 650 mg PO Q6H PRN PRN #30 tablet PRN Reason: Mild Pain (scale 0-3)/T>100.7 Ibuprofen [Motrin] 400 mg PO Q6H PRN PRN #30 tablet PRN Reason: Mild Pain (-04/17) levoFLOXacin tablet [Levaquin tablet] 500 mg PO DAILY #5 tablet Primary Care Physician: Care Physician,No Primary [Primary Care Provider] - Please follow up with your Primary Care Physician in: 1-2 weeks Disposition: Home Minutes spent on discharge:: 35 Patient Condition:: Stable Medical Necessity - Tobacco Use Smoking Status: Current every day smoker Meaningful Use Info Meaningful Use Diagnoses (Choose all that apply): None applicable Code Visit Inpatient E&M: 41929 Disch Hosp
== END 2017-12-29 10:39 | disposition home or self-care (01) ==
LOC: ED 10:03 → MS3 12:21
PROVIDERS: Admitting Provider Student in an Organized Health Care Education/Training Program; Emergency Provider Emergency Medicine; Visit Provider Student in an Organized Health Care Education/Training Program
DX: S22.32XA Fracture of one rib, left side, initial encounter for closed fracture (principal); R06.02 Shortness of breath; R07.81 Pleurodynia; W22.8XXA Striking against or struck by other objects, initial encounter; Y93.9 Activity, unspecified; Y92.89 Other specified places as the place of occurrence of the external cause; Y99.0 Civilian activity done for income or pay; E11.9 Type 2 diabetes mellitus without complications; F10.21 Alcohol dependence, in remission; I10 Essential (primary) hypertension; I25.10 Atherosclerotic heart disease of native coronary artery without angina pectoris; F17.200 Nicotine dependence, unspecified, uncomplicated; E87.1 Hypo-osmolality and hyponatremia; Z95.1 Presence of aortocoronary bypass graft; Z95.810 Presence of automatic (implantable) cardiac defibrillator; Z95.2 Presence of prosthetic heart valve; Z79.899 Other long term (current) drug therapy
CPT/HCPCS: 36415; 71046; 80048; 80053; 81001; 82962; 83036; 83605; 83880; 83930; 84484; 85025; 87040; 87449; 93005; 94640; 96361; 96365; 96366; 96367; 96372; 96375; 99218; 99285; 99406; J7030; J7050; A4216; G0378

== ENCOUNTER 2018-01-25 15:30 | Emergency (ER) | payer OTHER, SELFPAY ==
[2017-12-27 13:03] VITALS: BMI 21.4
[2018-01-25] VITALS (9 sets, daily range): BP systolic 97–187; BP diastolic 49–101; PULSE 60; RESP 13–18; TEMP 36.3; O2SAT 96–98; BMI 23.1
--- NOTE | 2018-01-25 15:42 | ED.VISSUMM ---
- ER Visit Summary Date of Service: 01/25/18 Chief Complaint: Alcohol abuse History of Present Illness: The patient is a 57 M presents to the emergency department intoxicated. The patient states that this is the anniversary of his son's . His son overdosed 2 years ago on this day. He states that he is been having some difficulty with it. He states that his is also recently arrested for drug trafficking. Obese had a hard time handling his emotions. He had apparently made some threats that he just did not want to live anymore. He denies any brandy suicidal plan. He does state that in order to deal with his depression, he does drink. He denies any history of self-harm. Physical Examination: Vital signs reviewed General: Well-nourished, well-developed Head: Normocephalic, atraumatic Eyes: Pupils equal and reactive, extraocular muscles intact Neck, supple, no lymphadenopathy Heart: Regular rate and rhythm Respiratory: No distress, clear bilaterally Abdomen: Soft, nontender, nondistended, no peritoneal signs Back: Nontender Extremities: Nontender, no edema, no cords Skin: Normal color no rash Neuro: Alert and oriented, no focal or lateralizing deficits Test Results: [] Emergency Department Course and Treatment: The patient presents intoxicated with suicidal thoughts. He did get agitated with nursing. He was given Geodon. Screening labs do show intoxication were otherwise unremarkable. The patient has been observed. He will be evaluated by crisis when sober for his reported suicidality. My suspicion is this is likely secondary to his intoxication, but he will be evaluated when sober. Treatment Plan: [] Disposition: Pending Impression: Alcohol intoxication 2 depression This note was generated with [employer] dictation software. It may contain incorrect words, spelling, and punctuation that were not noted in review of the chart prior to signing ED Disposition - Plan for ED Patient: Chief Complaint: ETOH Intox Referrals: Care Physician,No Primary [Primary Care Provider] -
[2018-01-25 16:42] LABS: Absolute Lymphocyte Count 1.67 X10^3/ul (0.83-4.51); Absolute Neutrophil Count 4.8 X10^3/uL (2.0-7.7); Basophil# 0.06 X10^3/uL; Basophil% 0.8 % (0-1); Eosinophil# 0.19 X10^3/uL; Eosinophils% 2.7 % (0-5); Hematocrit 41.1 % (40-54); Hemoglobin 13.8 g/dl (13.0-16.5); Lymphocyte # 1.67 X10^3/ul (4.0); Lymphocyte % 23.5 % (19-41); Mean Corp Hgb Conc 33.6 g/gl (32-36); Mean Corpuscular Hgb 31.4 pg (27.0-32.0); Mean Corpuscular Volume 93.4 fL (80-94); Mean Platelet Vol. 10.3 fl (6.2-12.0); Monocyte# 0.43 X10^3/uL; Neutrophil # 4.76 X10^3/uL (2.7-7.7); Neutrophil % 66.9 % (47-70); Platelet Count 214 K/mm3 (150-450); RBC Distribution Width CV 13.5 % (11.6-14.6); RBC Distribution Width SD 46.1 fl (35.1-43.9); White Blood Count 7.1 K/mm3 (4.4-11.0)
[2018-01-25 16:45] LABS: POSITIVE COUNT NO; POSITIVE DIFFERENTIAL NO; POSITIVE MORPHOLOGY NO
[2018-01-25 16:46] LABS: Amphetamine Urine VISTA NEGATIVE (<1000 ng/mL); Barbiturate Urine VISTA NEGATIVE (< 200 ng/mL); Benzodiazepine Urine VISTA NEGATIVE (< 200 ng/mL); Cocaine Urine VISTA NEGATIVE (< 300 ng/mL); Ecstacy Urine VISTA NEGATIVE (< 500 ng/mL); Methadone Urine VISTA NEGATIVE (< 300 ng/mL); PCP Urine VISTA NEGATIVE (< 25 ng/mL); THC Urine VISTA NEGATIVE (< 50 ng/mL); Vista UDS pH Range 6
[2018-01-25 16:50] LABS: Anion Gap 7 (5-15); BUN 13 mg/dL (7-18); Calcium,Total 8.8 mg/dL (8.5-10.1); Chloride 116 mmol/L (98-107); Creatinine, Serum 0.93 mg/dL (0.70-1.30); EST Glomerular Filtration Rate 89 mL/min (>60); Est Glom Filt Rate - Afr Amer 108 mL/min (>60); Estimated Creatinine Clearance 95.45 ml/min; Glucose 132 mg/dL (74-106); Potassium 3.8 mmol/L (3.5-5.1); Sodium Level 147 mmol/L (136-145)
--- NOTE | 2018-01-25 16:56 | ED.RN ---
PT TRYING TO GET OUT OF BED. PT FATHER AT BEDSIDE. THIS RN AT BEDSIDE EDUCATING PT THAT HE HAS TO STAY IN BED AND CANNOT LEAVE BECAUSE OF THE PINK SLIP. PT TEARFUL, TALKING ABOUT SON. PT SLIDES BACK IN BED REPORTS, I AM GOING TO TAKE A NAP.
[2018-01-25] MEDS: Ziprasidone IM 20 MG/ML VIAL IM (17:15)
--- NOTE | 2018-01-25 19:09 | ED.RN ---
father cell phone [phone].
[2018-01-25 23:05] LABS: Bedside Glucose 77 mg/dL (70-110)
[2018-01-26 00:07] VITALS: BP 168/94; PULSE 60; RESP 18; O2SAT 97
[2018-01-26 01:00] VITALS: BP 134/71; PULSE 60; RESP 15; O2SAT 97
--- NOTE | 2018-01-26 02:00 | ED.VISSUMM ---
- ER Visit Summary Date of Service: 01/26/18 Chief Complaint: [Addendum to initial dictation by Dr. Denys Romero ] History of Present Illness: Patient is a 57-year-old male who presented with alcohol intoxication and suicidal ideation. Care of patient turned over to me pending evaluation by crisis. It was felt that patient was not suicidal once his alcohol level normalized. At this time patient states he does not even remember making statements that he wanted to harm himself and he has no intention on harming himself. Crisis recommends discharge to home. Patient's father is willing to take him home. 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 Patient apparently had his son in the anniversary of the is coming up in March.] Physical Examination: [] Test Results: [] Emergency Department Course and Treatment: [] Treatment Plan: [] Disposition: [Discharged home in stable condition] Impression: [Alcohol intoxication] This note was generated with [employer] dictation software. It may contain incorrect words, spelling, and punctuation that were not noted in review of the chart prior to signing ED Disposition - Plan for ED Patient: Chief Complaint: ETOH Intox Referrals: Care Physician,No Primary [Primary Care Provider] -
--- NOTE | 2018-01-26 02:02 | ED.DEP ---
ED Disposition - Plan for ED Patient: Chief Complaint: ETOH Intox Instructions: ED Alcohol Intoxication Referrals: Care Physician,No Primary [Primary Care Provider] - Additional Instructions: Follow up with counseling
[2018-01-26 02:19] VITALS: BP 130/79; PULSE 60; RESP 15; O2SAT 97
--- NOTE | 2018-01-26 02:19 | ED.RN ---
PT AND FATHER EDUCATED ON DISCHARGE INSTRUCTIONS AND FOLLOW UP WITH THE COUNSELING CENTER. PT AND FATHER VERBALIZE UNDERSTANDING AND DENY ANY FURTHER QUESTIONS. PT GIVEN CLOTHES. PT DRESSES SELF AND AMBULATES OUT OF DEPT WITH FATHER.
--- OUTSIDE RECORDS SUMMARY | 2018-04-29 05:31 | XMS RPT_ITS ---
:1960 Author Organization OHIP Support Name Relationship Address Phone EZRA TALLEY Unavailable [address] + [place] [address] EZRA TALLEY Unavailable [address] + [place] [address] [employer] Unavailable [address] + [place] [address] CHRIS SANCHEZ Unavailable Unavailable + EZRA TALLEY Unavailable [address] + [place] [address] EZRA TALLEY Unavailable [address] + [place] [address] EZRA TALLEY Unavailable [address] + [place] [address] EZRA TALLEY Unavailable [address] + [place] [address] EZRA TALLEY Unavailable [address] + [place] [address] EZRA TALLEY Unavailable [address] + [place] [address] EZRA TALLEY Unavailable [address] + [place] [address] [employer] Unavailable [address] + [place] [address] CHRIS SANCHEZ Unavailable Unavailable + EZRA TALLEY Unavailable [address] + [place] [address] [employer] Unavailable [address] + [place] [address] CHRIS SANCHEZ Unavailable Unavailable + EZRA TALLEY Unavailable [address] + [place] [address] [employer] Unavailable [address] + [place] [address] HUNG SANCHEZE Unavailable Unavailable + EZRA TALLEY Unavailable [address] + [place] [address] [employer] Unavailable [address] + [place] [address] CHRIS SANCHEZ Unavailable Unavailable + EZRA TALLEY Unavailable [address] + [place] [address] [employer] Unavailable [address] + [place] [address] CHRIS SANCHEZ Unavailable Unavailable + EZRA TALLEY Unavailable [address] + [place] [address] EZRA TALLEY Unavailable [address] + [place] [address] EZRA TALLEY Unavailable [address] + [place] [address] CONCHA BELTRAN Unavailable Unavailable + [employer] Unavailable [address] + [place] [address] EZRA TALLEY Unavailable [address] + [place] [address] [employer] Unavailable [address] + [place] [address] EZRA TALLEY Unavailable [address] + [place] [address] [employer] Unavailable [address] + [place] [address] EZRA TALLEY Unavailable [address] + [place] [address] [employer] Unavailable [address] + [place] [address] EZRA TALLEY Unavailable [address] + [place] [address] [employer] Unavailable [address] + [place] [address] EZRA TALLEY Unavailable [address] + [place] [address] [employer] Unavailable [address] + [place] [address] EZRA TALLEY Unavailable [address] + [place] [address] CONCHA BELTRAN Unavailable Unavailable + [employer] Unavailable [address] + [place] [address] EZRA TALLEY Unavailable [address] + [place] [address] [employer] Unavailable [address] + [place] [address] EZRA TALLEY Unavailable [address] + [place] [address] [employer] Unavailable [address] + [place] [address] EZRA TALLEY Unavailable [address] + [place] [address] [employer] Unavailable [address] + [place] [address] EZRA TALLEY Unavailable [address] + [place] [address] [employer] Unavailable [address] + [place] [address] EZRA TALLEY Unavailable [address] + [place] [address] [employer] Unavailable [address] + [place] [address] EZRA TALLEY Unavailable [address] + [place] [address] [employer] Unavailable [address] + [place] [address] EZRA TALLEY Unavailable [address] + [place] [address] [employer] Unavailable [address] + [place] [address] EZRA TALLEY Unavailable [address] + [place] [address] [employer] Unavailable [address] + [place] [address] EZRA TALLEY Unavailable [address] + [place] [address] Care Team Providers Name Role Phone KATHY MONTERROSO Referring Unavailable LUCIANO LARKIN Attending Unavailable SKYLAR PIÑA Referring Unavailable KATHY MONTERROSO Referring Unavailable LUCIANO LARKIN Referring Unavailable ORLIN JACKSON Referring Unavailable Primay Care Physicia, No Primary Care Unavailable Denys Mcnally Attending Unavailable Tatiana, Donna Primary Care Unavailable Paintsil, [place] Admitting Unavailable Ezra Alfredo Consulting Unavailable Valeriy Connell Attending Unavailable Paintsil, [place] Admitting Unavailable Paintsil, [place] Attending Unavailable Tatiana, Donna Primary Care Unavailable Paintsil, [place] Consulting Unavailable Paintsil, [place] Admitting Unavailable Valeriy Connell Attending Unavailable Tatiana, Donna Primary Care Unavailable Ezra Alfredo Consulting Unavailable Valeriy Connell Consulting Unavailable Paintsil, [place] Admitting Unavailable Ezra Alfredo Attending Unavailable Tatiana, Donna Primary Care Unavailable Ezra Alfredo Consulting Unavailable Valeriy Connell Consulting Unavailable Tatiana, Donna Primary Care Unavailable Ezra Gonzalez Attending Unavailable Tatiana, Donna Primary Care Unavailable Karl Lomeli Attending Unavailable Ezra Gonzalez Attending Unavailable Primay Care Physicia, No Primary Care Unavailable Primay Care Physicia, No Primary Care Unavailable Brant Villanueva Attending Unavailable Primay Care Physicia, No Primary Care Unavailable Ashelfah, Ghasem Admitting Unavailable Ashelfah, Ghasem Attending Unavailable Ashelfah, Ghasem Admitting Unavailable Ashelfah, Ghasem Attending Unavailable Primay Care Physicia, No Primary Care Unavailable Ashelfah, Ghasem Consulting Unavailable Ashelfah, Ghasem Admitting Unavailable Ashelfah, Ghasem Attending Unavailable Primay Care Physicia, No Primary Care Unavailable Ashelfah, Ghasem Consulting Unavailable Ashelfah, Ghasem Admitting Unavailable Ashelfah, Ghasem Attending Unavailable Primay Care Physicia, No Primary Care Unavailable Ashelfah, Ghasem Consulting Unavailable Ashelfah, Ghasem Admitting Unavailable Ashelfah, Ghasem Attending Unavailable Primay Care Physicia, No Primary Care Unavailable Ashelfah, Ghasem Consulting Unavailable Primay Care Physicia, No Primary Care Unavailable Ezra Gonzalez Attending Unavailable Jacky Bey Attending Unavailable Ashelfah, Ghasem Referring Unavailable Primay Care Physicia, No Primary Care Unavailable Chris Davila Attending Unavailable Primay Care Physicia, No Primary Care Unavailable Koram, Ashley Padmini Admitting Unavailable Koram, Ashley Padmini Attending Unavailable Koram, Ashley Padmini Admitting Unavailable Koram, Ashley Padmini Attending Unavailable Primay Care Physicia, No Primary Care Unavailable Koram, Ashley Padmini Consulting Unavailable Koram, Ashley Padmini Admitting Unavailable Koram, Ashley Padmini Attending Unavailable Primay Care Physicia, No Primary Care Unavailable Koram, Ashley Padmini Consulting Unavailable Koram, Ashley Padmini Admitting Unavailable Koram, Ashley Padmini Attending Unavailable Primay Care Physicia, No Primary Care Unavailable Koram, Ashley Padmini Consulting Unavailable ZACHARY GROSS MD. MILLA Escoto Admitting Unavailable ZACHARY GROSS MD. MILLA Escoto Attending Unavailable TATIANA, DONNA Primary Care Unavailable TATIANA, DONNA Consulting Unavailable EMMANUEL GREEN MD Consulting Unavailable ZACHARY GROSS MD. MILLA Escoto Consulting Unavailable EDIEANDREAS TOWNSEND CNP Attending Unavailable TATIANA, DONNA Primary Care Unavailable EDIEANDREAS TOWNSEND CNP Attending Unavailable ANDREAS IRIZARRY CNP Primary Care Unavailable ANDREAS IRIZARRY CNP Attending Unavailable ANDREAS IRIZARRY CNP Primary Care Unavailable EDIEANDREAS TOWNSEND CNP Attending Unavailable EDIEANDREAS TOWNSEND CNP Primary Care Unavailable KARL MONTERROSO Referring Unavailable IMCA Primary Care Unavailable KARL MONTERROSO Referring Unavailable IMCA Primary Care Unavailable COURSKARL MUÑIZ Referring Unavailable IMCA Primary Care Unavailable LUCIANO LARKIN Attending Unavailable IMCA Referring Unavailable IMCA Primary Care Unavailable LUCIANO LARKIN Attending Unavailable LUCIANO LARKIN Referring Unavailable IMCA Primary Care Unavailable KARL MONTERROSO Referring Unavailable IMCA Primary Care Unavailable PROBLEMS PROBLEMS DATE TYPE CONDITION / CODE ATTENDING STATUS SOURCE Admitting Anemia in other EDIE CNP, Active [facility] 9 Diagnosis chronic diseases ANDREAS D. [facility] [place] classified elsewhere / Repository D63.8(ICD-10) Admitting Dysuria / EDIE [facility], Active [facility] 8 Diagnosis R30.0(ICD-10) [facility] D. [facility] Repository Active Bradycardia, NA Active [facility] unspecified / Clinic Other R00.1(ICD-10) [place] Repository Unknown R06.02 - Shortness of Koram, Ashley Active [place] 8 breath / Padmini [facility] R06.02(ICD-10) Hospital Repository Unknown S22.39XA - Fracture of Chris Davila Active [place] 8 one rib, unspecified Community side, initial Hospital encounter for closed Repository fracture / S22.39XA(ICD-10) Unknown R94.31 - Abnormal [place], Active [place] 8 electrocardiogram [facility] [ECG] [EKG] / Hospital R94.31(ICD-10) Repository Unknown I45.10 - Unspecified [place], Active [place] 8 right bundle-branch [facility] block / I45.10(ICD-10) Hospital Repository Unknown I10 - Essential [place], Active [place] 8 (primary) hypertension [facility] / I10(ICD-10) Hospital Repository Active Spontaneous ecchymoses NA Active [place] [facility] / R23.3(ICD-10) Clinic Main [place] Repository Active Presence of prosthetic CHAYA, 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 / LUCIANO E Clinic Other Z95.2(ICD-10) [place] Repository Active Supraventricular CHAYA, Active [place] 8 tachycardia / LUCIANO E Clinic Other I47.1(ICD-10) [place] Repository Active Essential (primary) CHAYA Active [place] 8 hypertension / LUCIANO E Clinic Other I10(ICD-10) [place] Repository Admitting Unknown / UNK(Unknown) NA Active [address] [facility] Repository PROCEDURES PROCEDURES No Procedure Records FoundRESULTS RESULTS CBC Collected: 02/24/2018 Status: F Source: [facility] 8:20 AM [facility] REPOSITORY TYPE CODE TESTS RESULT OUT OF REFERENCE UNITS RANGE LAB WBC(LOINC) 4.60-10.80 10 3/mcL WBC 8.00 LAB RBCCT(LOINC 4.04-6.13 10 6/mcL ) RBC 4.33 LAB HGB(LOINC) 14.0-18.0 G/dL Low Hgb 13.9 LAB HCT(LOINC) 42.0-52.0 % Low Hct 40.9 LAB MCV(LOINC) 80.0-94.0 fL High MCV 94.4 LAB MCH(LOINC) 27.0-31.2 pg High MCH 32.1 LAB MCHC(LOINC) 31.8-35.4 G/dL MCHC 34.0 LAB RDW(LOINC) 11.5-14.5 % RDW 13.5 LAB PLT(LOINC) 130-400 10 3/mcL Platelet 221 LAB MPV(LOINC) 7.4-10.4 fL MPV 9.5 Performed By: #### CBC, ADIFF, ANEU #### [facility] [address] [place] [address] #### FE, IBC, B12, FOL #### [address] [address] .AUTO DIFF Collected: 02/24/2018 Status: F Source: [facility] 8:20 [facility] REPOSITORY TYPE CODE TESTS RESULT OUT OF REFERENCE UNITS RANGE LAB NITESH(LOINC) 37.0-80.0 % Neutrophil % 73.1 LAB LYM(LOINC) 10.0-50.0 % Lymphocyte % 17.9 LAB MON(LOINC) 1.7-13.0 % Monocyte % 6.7 LAB EO(LOINC) 0.0-7.0 % Eosinophil % 1.5 LAB BAS(LOINC) 0.0-2.5 % Basophil % 0.8 LAB ABLYM(LOIN 0.77-3.85 10 3/mcL C) Lymphocyte, 1.40 Absolute LAB SANDRA(LOINC 0.15-1.00 10 3/mcL ) Monocyte, 0.50 Absolute LAB AEOS(LOINC 0.00-0.40 10 3/mcL ) Eosinophil, 0.10 Absolute LAB ABAS(LOINC 0.00-0.19 10 3/mcL ) Basophil, 0.10 Absolute Performed By: #### CBC, ADIFF, ANEU #### [address] [address] #### FE, IBC, B12, FOL #### [place] [address] .NEUABS Collected: 02/24/2018 Status: F Source: [facility] 8:20 AM [facility] REPOSITORY TYPE CODE TESTS RESULT OUT OF REFERENCE UNITS RANGE LAB ANEU(LOINC) 2.85-6.16 10 3/mcL Neutrophil, 5.90 Absolute Performed By: #### CBC, ADIFF, ANEU #### [address] [address] #### FE, IBC, B12, FOL #### [place] [address] FE Collected: 02/24/2018 Status: F Source: [facility] 8:20 AM [facility] REPOSITORY TYPE CODE TESTS RESULT OUT OF RANGE REFERENCE UNITS LAB FE(LOINC) 65-175 mcg/dL Iron 78 Performed By: #### CBC, ADIFF, ANEU #### [address] [address] #### FE, IBC, B12, FOL #### [place] [address] IBC Collected: 02/24/2018 Status: F Source: [facility] 8:20 AM [facility] REPOSITORY TYPE CODE TESTS RESULT OUT OF RANGE REFERENCE UNITS LAB IBC(LOINC) 250-450 mcg/dL TIBC 387 Performed By: #### CBC, ADIFF, ANEU #### [place] [address] #### FE, IBC, B12, FOL #### [place] [address] B12 Collected: 02/24/2018 Status: F Source: [facility] 8:20 AM [facility] REPOSITORY TYPE CODE TESTS RESULT OUT OF REFERENCE UNITS RANGE LAB B12(LOINC) 211-911 pg/mL Vitamin B12 515 Lvl Performed By: #### CBC, ADIFF, ANEU #### [place] [address] [place], [place] [address] #### FE, IBC, B12, FOL #### [facility] [address] [place] [address] FOL Collected: 02/24/2018 Status: F Source: [facility] 8:20 AM [facility] REPOSITORY TYPE CODE TESTS RESULT OUT OF REFERENCE UNITS RANGE LAB FOL(LOINC) 1.1-20.0 ng/mL High Folate 29.9 Performed By: #### CBC, ADIFF, ANEU #### [place] [address] [place], [place] [address] #### FE, IBC, B12, FOL #### [facility] [address] [place] [address] DISCHARGE INSTRUCTION Observed: 01/26/2018 Status: F Source: [place] 2:03 AM [facility] REPOSITORY [facility] Medical Records Department [address] [place] [address] Discharge Instruction 01/26/18 020 MR#: [id number] Acct: [id number] Name: ANALILIA TALLEY Antonio Rep #: [id number] : 1960 57 From: Samantha Singer DO PCP: Care Physician, No Primary Status: REG ER ED Disposition - Plan for ED Patient: Chief Complaint: ETOH Intox Instructions: ED Alcohol Intoxication Referrals: Care Physician,No Primary [Primary Care Provider] - Additional Instructions: Follow up with counseling What to do if you have Problems For any increased pain, shortness of breath, bleeding, nausea or vomiting, chest pain, or any unexpected problems, contact your Primary Care Provider. Call [facility] ([phone]) or report to the closest Emergency Room. Call 911 if necessary. 01/26/18 020 <Electronically signed by Samantha Singer DO> Date Samantha Singer DO Cosigner Signature (If Indicated): Date CC: No Primary Care Physician EMERGENCY DEPARTMENT Observed: 01/26/2018 Status: F Source: [place] 2:02 AM [facility] REPOSITORY [facility] Medical Records Department [address] [place] [address] Emergency Department Summary 01/26/18 0200 MR#: [id number] Acct: [id number] Name: ANALILIA TALLEY Rep #: [id number] : 1960 57 From: Samantha Singer DO PCP: Care Physician, No Primary Status: REG ER - ER Visit Summary Date of Service: 01/26/18 Chief Complaint: [Addendum to initial dictation by Dr. Denys Romero ] History of Present Illness: Patient is a 57-year-old male who presented with alcohol intoxication and suicidal ideation. Care of patient turned over to me pending evaluation by crisis. It was felt that patient was not suicidal once his alcohol level normalized. At this time patient states he does not even remember making statements that he wanted to harm himself and he has no intention on harming himself. Crisis recommends discharge to home. Patient's father is willing to take him home. welfare worker has history with patient and knows him well. Patient apparently had his son in the anniversary of the is coming up in March.] Physical Examination: [] Test Results: [] Emergency Department Course and Treatment: [] Treatment Plan: [] Disposition: [Discharged home in stable condition] Impression: [Alcohol intoxication] This note was generated with [employer] dictation software. It may contain incorrect words, spelling, and punctuation that were not noted in review of the chart prior to signing ED Disposition - Plan for ED Patient: Chief Complaint: ETOH Intox Referrals: Care Physician,No Primary [Primary Care Provider] - What to do if you have Problems For any increased pain, shortness of breath, bleeding, nausea or vomiting, chest pain, or any unexpected problems, contact your Primary Care Provider. Call [facility] ([phone]) or report to the closest Emergency Room. Call 911 if necessary. 01/26/[address] <Electronically signed by Remus Ungur DO> Date Remus Ungur DO Cosigner Signature (If Indicated): Date CC: No Primary Care Physician EMERGENCY DEPARTMENT Observed: 01/25/2018 Status: F Source: [place] SUMMARY 11:49 PM [facility] REPOSITORY [facility] Medical Records Department [address] [place] [address] Emergency Department Summary 01/25/18 1542 MR#: [id number] Acct: [id number] Name: ANALILIA TALLEY Rep #: [id number] : 1960 57 From: Denys Mcnally MD PCP: Care Physician, No Primary Status: REG ER - ER Visit Summary Date of Service: 01/25/18 Chief Complaint: Alcohol abuse History of Present Illness: The patient is a 57 M presents to the emergency department intoxicated. The patient states that this is the anniversary of his son's . His son overdosed 2 years ago on this day. He states that he is been having some difficulty with it. He states that his is also recently arrested for drug trafficking. Obese had a hard time handling his emotions. He had apparently made some threats that he just did not want to live anymore. He denies any brandy suicidal plan. He does state that in order to deal with his depression, he does drink. He denies any history of self-harm. Physical Examination: Vital signs reviewed General: Well-nourished, well-developed Head: Normocephalic, atraumatic Eyes: Pupils equal and reactive, extraocular muscles intact Neck, supple, no lymphadenopathy Heart: Regular rate and rhythm Respiratory: No distress, clear bilaterally Abdomen: Soft, nontender, nondistended, no peritoneal signs Back: Nontender Extremities: Nontender, no edema, no cords Skin: Normal color no rash Neuro: Alert and oriented, no focal or lateralizing deficits Test Results: [] Emergency Department Course and Treatment: The patient presents intoxicated with suicidal thoughts. He did get agitated with nursing. He was given Geodon. Screening labs do show intoxication were otherwise unremarkable. The patient has been observed. He will be evaluated by crisis when sober for his reported suicidality. My suspicion is this is likely secondary to his intoxication, but he will be evaluated when sober. Treatment Plan: [] Disposition: Pending Impression: Alcohol intoxication 2 depression This note was generated with [employer] dictation software. It may contain incorrect words, spelling, and punctuation that were not noted in review of the chart prior to signing ED Disposition - Plan for ED Patient: Chief Complaint: ETOH Intox Referrals: Care Physician,No Primary [Primary Care Provider] - What to do if you have Problems For any increased pain, shortness of breath, bleeding, nausea or vomiting, chest pain, or any unexpected problems, contact your Primary Care Provider. Call [facility] ([phone]) or report to the closest Emergency Room. Call 911 if necessary. 01/25/18 1009 <Electronically signed by Denys Mcnally MD> Date Denys Mcnally MD Cosigner Signature (If Indicated): Date CC: No Primary Care Physician BEDSIDE GLUCOSE Collected: 01/25/2018 Status: F Source: [place] 10:59 PM [facility] REPOSITORY TYPE CODE TESTS RESULT OUT OF RANGE REFERENCE UNITS LAB L501.080 70-110 mg/dL Normal BEDSIDE GLU 77 Result Comment: MANAGEMENT OF PATIENT CARE PER NURSING PROTOCOL Performed By: #### L501.080 #### [facility] Point [facility] [address] ALCOHOL, BLOOD Collected: 01/25/2018 Status: F Source: [place] (MEDICAL)-SERUM 10:00 PM [facility] REPOSITORY TYPE CODE TESTS RESULT OUT OF RANGE REFERENCE UNITS LAB L501.9100 mg/dL Normal SERUM 134.0 ETOH Result Comment: The serum:whole blood ethanol ratio is approximately 1.14 and varies slightly with hematocrit. Medical Alcohol reference interval and critical value in non-tolerant individuals; 50 - 100 Impairment 100 Intoxication 100 - 250 Severe Poisoning 250 - 400 Deep/possible fatal coma Performed By: #### L501.9100 #### [facility] [address] [place], [address] CBC W/DIFF, AUTOMATED Collected: 01/25/2018 Status: F Source: [place] 4:20 PM [facility] REPOSITORY TYPE CODE TESTS RESULT OUT OF RANGE REFERENCE UNITS LAB L100.1000 4.4-11.0 K/mm3 Normal WBC 7.1 LAB L100.1200 4.6-6.2 M/mm3 Low RBC 4.40 LAB L100.1300 13.0-16.5 g/dl Normal HGB 13.8 LAB L100.1400 40-54 % Normal HCT 41.1 LAB L100.1500 80-94 fL Normal MCV 93.4 LAB L100.1600 27.0-32.0 pg Normal MCH 31.4 LAB L100.1700 32-36 g/gl Normal MCHC 33.6 LAB L100.1810 11.6-14.6 % Normal RDW CV 13.5 LAB L100.1820 35.1-43.9 fl High RDW SD 46.1 LAB L100.1900 150-450 K/mm3 Normal PLT 214 LAB L100.2000 6.2-12.0 fl Normal MPV 10.3 LAB L100.2100 47-70 % Normal NEUT% 66.9 LAB L100.2200 19-41 % Normal LY% 23.5 LAB L100.2300 0-10 % Normal MONO% 6.0 LAB L100.2400 0-5 % Normal EO% 2.7 LAB L100.2500 0-1 % Normal BASO% 0.8 LAB L100.2550 0.0-0.9 % Normal IM GRAN % 0.100 Result Comment: IG% - Immature Granulocytes (promyelocytes, myelocytes and metamyelocytes) > 1% indicates that a LEFT SHIFT is Present. LAB L100.2620 2.0-7.7 X10 3/uL Normal Absolute Neut 4.8 LAB L100.2720 0.83-4.51 X10 3/ul Normal Absolute Lymph 1.67 Performed By: #### L100.0100 #### [facility] [address] [place], [address] BASIC METABOLIC Collected: 01/25/2018 Status: F Source: [place] PROFILE (BMP) 4:20 PM [facility] REPOSITORY TYPE CODE TESTS RESULT OUT OF RANGE REFERENCE UNITS LAB L501.0100 74-106 mg/dL High GLU 132 Result Comment: Fasting Glucose result greater than or equal to 126 mg/dL suggests DIABETES MELLITUS per A.D.A. criteria. Please note revised GLUCOSE reference range effective 2017. LAB L501.1000 7-18 mg/dL Normal BUN 13 LAB L501.1100 0.70-1.30 mg/dL Normal CREAT,SERUM 0.93 Result Comment: The validity of the calculated GFR AND GFRAA in patients over 70 years has not been determined. Clinical correlation is essential. LAB L501.1110 >60 mL/min Normal EST GFR 89 Result Comment: Non- GFR Calc LAB L501.1115 >60 mL/min Normal EST GFR - AA 108 Result Comment: GFR Calc LAB L501.1255 ml/min Normal Estimated CRCL 95.45 LAB L501.1300 10-20 RATIO Normal BUN/CRE 14.0 LAB L501.2200 8.5-10 mg/dL Normal .1 CA 8.8 LAB L501.5300 136-14 mmol/L High 5 NA 147 LAB L501.5600 3.5-5. mmol/L Normal 1 K 3.8 LAB L501.5900 98-107 mmol/L High CL 116 LAB L501.6100 21.0-3 mmol/L Normal 2.0 CO2 24.0 LAB L501.6200 5-15 Normal GAP 7 Performed By: #### L500.2500 #### [facility] [address] [place], [address] ALCOHOL, BLOOD Collected: 01/25/2018 Status: F Source: [place] (MEDICAL)-SERUM 4:20 PM [facility] REPOSITORY TYPE CODE TESTS RESULT OUT OF RANGE REFERENCE UNITS LAB L501.9100 mg/dL Normal SERUM 234.0 ETOH Result Comment: The serum:whole blood ethanol ratio is approximately 1.14 and varies slightly with hematocrit. Medical Alcohol reference interval and critical value in non-tolerant individuals; 50 - 100 Impairment 100 Intoxication 100 - 250 Severe Poisoning 250 - 400 Deep/possible fatal coma Performed By: #### L501.9100 #### [facility] [address] [place], [place], [address] URINE DRUG SCREEN Collected: 01/25/2018 Status: F Source: [place] (VISTA) 3:40 PM [facility] REPOSITORY TYPE CODE TESTS RESULT OUT OF RANGE REFERENCE UNITS LAB L505.0075 TO BE Normal CONFIRMED Result Comment: CONFIRMATORY TESTING FOR ALL POSITIVE URINE DRUG SCREEN RESULTS WILL ONLY BE SENT OUT UPON PHYSICIAN ORDER. VISTA Urine Drug Screen methods provide only preliminary analytical test results. A more specific alternate chemical method must be used in order to obtain a confirmed analytical result. Gas chromatography/mass spectrometery (GC/MS) is the preferred confirmatory method. Clinical consideration and professional judgement should be applied to any drug of abuse test result, particularly when preliminary positive results are used. URINE TCA TESTING MUST BE ORDERED SEPARATELY. USE TEST MNEMONIC: [facility] L505.5005 VISTA UDS PH 6 Normal LAB L505.5015 <1000 ng/mL AMPHETAMINES Normal NEGATIVE LAB L505.5025 < 200 ng/mL BARBITIURATES Normal NEGATIVE LAB L505.5035 < 200 ng/mL BENZODIAZIPINE Normal NEGATIVE LAB L505.5045 < 300 ng/mL COCAINE Normal NEGATIVE LAB L505.5055 < 500 ng/mL ECSTACY Normal NEGATIVE LAB L505.5065 < 300 ng/mL METHADONE Normal NEGATIVE LAB L505.5075 < 300 ng/mL OPIATES Normal NEGATIVE LAB L505.5085 < 25 ng/mL PCP Normal NEGATIVE LAB L505.5095 < 50 ng/mL THC Normal NEGATIVE Performed By: #### L505.5000 #### [facility] [address] [facility] [place], [address] CT ABDOMEN W/ Observed: 01/19/2018 Status: F Source: Multispectral Imaging CONTRAST 1:00 PM [facility] REPOSITORY ORIGINAL CT ABDOMEN WITH CONTRAST: CLINICAL STATEMENT: LUQ PAIN status post subacute LEFT rib fracture (3 weeks) and subsequent pneumonia COMPARISON: CT abdomen and pelvis- 12/26/2014 TECHNIQUE: This exam was performed according to our departmental dose optimization program, including but not limited to: automated exposure control, adjustment of the mAs and/or kVp according to patient size and/ or exam, and use of an iterative reconstruction algorithm where applicable. Serial axial images of the abdomen were obtained in 3.75/1.25 mm increments following the administration of 100 mL of Omni 300 IV contrast and oral contrast. Coronal and sagittal reformations were generated. FINDINGS: Evaluation of the lung bases is limited by motion artifact. However, the lung bases appear grossly normal. The heart is enlarged with LEFT ventricular hypertrophy. Sternotomy wires, pacing leads and epi cardial wires are noted. There is a small sliding hiatal hernia. There is an unchanged hepatic cyst. The gallbladder is thick walled but otherwise normal. The pancreas is atretic and heavily calcified. These findings are stable from prior exam. There is a small hypod ense LEFT adrenal nodule measuring 8 x 11 mm . In hindsight, a similar lesion was present on previous CT (2014). The RIGHT adrenal gland appears normal. Normal renal enhancement is observed. There are multiple punctate bilateral nonobstructing renal calculi. The ureters are normal. The esophagus, stomach, and small bowel are normal in course and caliber. There is a region of edematous bowel wall thickening at the distal sigmoid colon that is incompletely visualized. The appendix a nd terminal ileum appear normal. The aorta and its major branches are patent and normal in course and caliber. There are diffuse atherosclerotic ossifications of the aorta and its major branches. The vena cava and portal system are unr emarkable. No lymphadenopathy is observed. Degenerative changes are noted in the lumbar spine. Subacute LEFT anterior rib fractures are noted. The abdominal wall is unremarkable. IMPRESSION: Subacute LEFT anterior fractures may be related to persistent abdominal pain. Incidental adrenal nodule: Given size and convexity this is likely benign and no further follow-up is recommended. I have personally reviewed the images of this examination and agree with the resident's findings and interpretation. Interpreted By: Evan Love MD Preliminary Report By: Zia Velazquez DO Electronically Signed By: Evan Love MD Dictated Date: 01/19/2018 1:47:14 PM Prelim Date: 01/19/2018 3:13:39 PM Sign Date: 01/19/2018 4:01:52 PM XR CHEST 2 VIEWS Observed: 01/19/2018 Status: F Source: [facility] 12:29 PM [facility] REPOSITORY ORIGINAL XR CHEST 2 VIEWS CLINICAL STATEMENT: LT SIDE RIB PAIN PREVIOUS FX OF ON LT RIB. COMPARISON: CT ANGIOGRAPHY CHEST W+W/O CONTRAST FOR DISSECTION 03/09/2016 FINDINGS: The cardiomediastinal contours are normal. There is no consolidation, vascular congestion, pleural effusion, or pneumothorax. There is LEFT basilar atelectasis/parenchymal scarring. No displac ed fractures are identified. IMPRESSION: No acute radiographic findings. Interpreted By: Samantha Martinez MD Preliminary Report By: Samantha Martinez MD Electronically Signed By: Samantha Martinez MD Dictated Date: 01/19/2018 1:00:44 PM Prelim Date: 01/19/2018 1:00:44 PM Sign Date: 01/19/2018 2:35:09 PM JAILYN Collected: 01/19/2018 Status: F Source: [facility] 11:09 AM [facility] REPOSITORY TYPE CODE TESTS RESULT OUT OF REFERENCE UNITS RANGE LAB JAILYN(LOINC) 25-115 U/L Amylase Level 50 Performed By: #### JAILYN, LIP, CMP, GFR #### [place] [address] #### CBC, ADIFF, ANEU #### [place] [address] [place], [place] [address] LIP Collected: 01/19/2018 Status: F Source: [facility] 11:09 AM [facility] REPOSITORY TYPE CODE TESTS RESULT OUT OF REFERENCE UNITS RANGE LAB LIP(LOINC) 73-393 U/L Low Lipase Level 28 Performed By: #### JAILYN, LIP, CMP, GFR #### [place] [address] #### CBC, ADIFF, ANEU #### [address] [address] CMP Collected: 01/19/2018 Status: F Source: [facility] 11:09 AM [facility] REPOSITORY TYPE CODE TESTS RESULT OUT OF REFERENCE UNITS RANGE LAB GLU(LOINC) 70-105 mg/dL Glucose High Level 161 LAB NA(LOINC) 136-145 mmol/L Sodium Level 139 LAB K(LOINC) 3.5-5.1 mmol/L Potassium Level 4.2 LAB CL(LOINC) 98-107 mmol/L Chloride 100 LAB CO2(LOINC) 22-29 mmol/L CO2 High 36 LAB EBAL(LOINC mEq/L ) Electrolyte Balance 3.0 LAB BUN(LOINC) 7-18 mg/dL BUN High 23 LAB CRE(LOINC) 0.70-1.30 mg/dL Creatinine Lvl (s) 0.94 LAB BC(LOINC) 7-27 ratio BUN/Creatinine 24 Ratio LAB CA(LOINC) 8.4-10.2 mg/dL Calcium Lvl 8.6 LAB PROT(LOINC 6.4-8.2 G/dL ) Low Total Protein 6.1 LAB ALB(LOINC) 3.5-5.0 G/dL Low Albumin Level 3.3 LAB GLB(LOINC) G/dL Globulin 2.8 LAB AG(LOINC) 1.1-2.5 ratio A/G Ratio 1.2 LAB BILT(LOINC 0.2-1.0 mg/dL ) Bili Total 0.2 LAB AP(LOINC) 40-135 U/L Alk Phos 128 LAB AST(LOINC) 10-40 U/L AST/SGOT 23 LAB ALT(LOINC) 10-35 U/L ALT/SGPT High 36 Performed By: #### JAILYN, LIP, CMP, GFR #### [place] [address] #### CBC, ADIFF, ANEU #### [address] [address] .GFR Collected: 01/19/2018 Status: F Source: [facility] 11:09 AM [facility] REPOSITORY TYPE CODE TESTS RESULT OUT OF REFERENCE UNITS RANGE LAB GFRAA(LOINC ml/min/1.73 ) sqm GFR 101 Mongolian Result Comment: GFR Population mean for , Non- Americans Ages 20-29 = 116 mL/min/1.73 sq.m. Ages 30-39 = 107 mL/min/1.73 sq.m. Ages 40-49 = 99 mL/min/1.73 sq.m. Ages 50-59 = 93 mL/min/1.73 sq.m. Ages 60-69 = 85 mL/min/1.73 sq.m. Ages 70+ = 75 mL/min/1.73 sq.m. Chronic Kidney Disease: Less than 60 mL/min/1.73 square meters End Stage Renal Disease: Less than 15 mL/min/1.73 square meters LAB GFRNO(LOINC) ml/min/1.73sqm GFR Non- 83 Result Comment: GFR Population mean for , Non- Americans Ages 20-29 = 116 mL/min/1.73 sq.m. Ages 30-39 = 107 mL/min/1.73 sq.m. Ages 40-49 = 99 mL/min/1.73 sq.m. Ages 50-59 = 93 mL/min/1.73 sq.m. Ages 60-69 = 85 mL/min/1.73 sq.m. Ages 70+ = 75 mL/min/1.73 sq.m. Chronic Kidney Disease: Less than 60 mL/min/1.73 square meters End Stage Renal Disease: Less than 15 mL/min/1.73 square meters Performed By: #### JAILYN, LIP, CMP, GFR #### [place] [address] #### CBC, ADIFF, [facility] #### [address] [address] CBC Collected: 01/19/2018 Status: F Source: [facility] 11:09 AM [facility] REPOSITORY TYPE CODE TESTS RESULT OUT OF REFERENCE UNITS RANGE LAB WBC(LOINC) 4.60-10.80 10 3/mcL WBC 9.20 LAB RBCCT(LOINC 4.04-6.13 10 6/mcL ) Low RBC 4.01 LAB HGB(LOINC) 14.0-18.0 G/dL Low Hgb 12.8 LAB HCT(LOINC) 42.0-52.0 % Low Hct 38.1 LAB MCV(LOINC) 80.0-94.0 fL High MCV 95.1 LAB MCH(LOINC) 27.0-31.2 pg High MCH 32.0 LAB MCHC(LOINC) 31.8-35.4 G/dL MCHC 33.7 LAB RDW(LOINC) 11.5-14.5 % RDW 14.1 LAB PLT(LOINC) 130-400 10 3/mcL Platelet 213 LAB MPV(LOINC) 7.4-10.4 fL MPV 8.4 Performed By: #### JAILYN, LIP, CMP, GFR #### [place] [address] #### CBC, ADIFF, ANEU #### [address] [address] .AUTO DIFF Collected: 01/19/2018 Status: F Source: [facility] 11:09 AM [facility] REPOSITORY TYPE CODE TESTS RESULT OUT OF REFERENCE UNITS RANGE LAB NITESH(LOINC) 37.0-80.0 % Neutrophil % 78.4 LAB LYM(LOINC) 10.0-50.0 % Lymphocyte % 11.8 LAB MON(LOINC) 1.7-13.0 % Monocyte % 7.9 LAB EO(LOINC) 0.0-7.0 % Eosinophil % 1.3 LAB BAS(LOINC) 0.0-2.5 % Basophil % 0.6 LAB ABLYM(LOIN 0.77-3.85 10 3/mcL C) Lymphocyte, 1.10 Absolute LAB SANDRA(LOINC 0.15-1.00 10 3/mcL ) Monocyte, 0.70 Absolute LAB AEOS(LOINC 0.00-0.40 10 3/mcL ) Eosinophil, 0.10 Absolute LAB ABAS(LOINC 0.00-0.19 10 3/mcL ) Basophil, 0.10 Absolute Performed By: #### JAILYN, LIP, CMP, GFR #### [place] [address] #### CBC, ADIFF, ANEU #### [address] [address] .NEUABS Collected: 01/19/2018 Status: F Source: [facility] 11:09 AM [facility] REPOSITORY TYPE CODE TESTS RESULT OUT OF REFERENCE UNITS RANGE LAB ANEU(LOINC) 2.85-6.16 10 3/mcL High Neutrophil, 7.20 Absolute Performed By: #### JAILYN, LIP, CMP, GFR #### [place] [address] #### CBC, ADIFF, ANEU #### [address] [address] Observed: 01/18/2018 Status: F Source: [facility] 10:50 AM [facility] REPOSITORY . MICRO - Microbiology PROCEDURE: Urine Culture [*1] SOURCE: Urine BODY SITE: COLLECTED DATE/TIME: 01/18/2018 10:50 EST RECEIVED DATE/TIME: 01/19/2018 15:57 EST START DATE/TIME: 01/19/2018 15:57 EST FREE TEXT SOURCE: FINAL REPORTS Final Report [] Verified Date/Time/Personnel: 01/21/2018 07:54 EST No growth at 48 hours. Sensitivity testing not indicated. PRELIMINARY REPORTS Preliminary Report [] Verified Date/Time/Personnel: 01/20/2018 08:47 EST No growth to date Performing Locations *1: This test was performed at: [facility], [address] [place] [address], [facility]- , [facility] Performed By: #### CUR #### [place] [address] OBSOLETE Observed: 01/14/2018 Status: COMPLETED Source: [facility] 8:00 AM [facility] OTHER C[facility]US REPOSITORY Procedure (AKEPD) ANALILIA TALLEY ([id number]) 1960 M Date Time Provider Department 01/14/18 8:00 AM REM DEVICE CK AKEPD During your visit today, we recorded the following information about you: Referring Provider: KATHY MONTERROSO [[id number]] Allergies As of Date: 01/14/2018 (No Known Allergies) Date Reviewed: 07/07/2017 Reviewed by: Marisol Dutton - Fully Assessed Reason for Visit: Remote Pacemaker Follow Up [1925] Visit Diagnosis:Bradycardia [R00.1] Prescriptions as of 01/14/2018 Sig: LISINOPRIL 20 MG TABLET TAKE 1 TABLET BY MOUTH TWICE * ATORVASTATIN 40 MG TABLET TAKE 1 TABLET BY MOUTH ONCE D* METOPROLOL TARTRATE 100 MG TA* TAKE 1 TABLET BY MOUTH TWICE * INSULIN DETEMIR (U-100) 100 U* Inject subcutaneously as dir* METFORMIN 500 MG TABLET Take 500 mg by mouth twice da* FLUOXETINE 20 MG CAPSULE Take 20 mg by mouth once lorene* MULTIVITAMIN ORAL Take 1 tablet by mouth once d* ASPIRIN 81 MG CHEWABLE TABLET Take 2 tablets by mouth once * MAGNESIUM HYDROXIDE 400 MG/5 * Take 30 mL by mouth once lorene* THERAPEUTIC MULTIVITAMIN TABL* Take 1 tablet by mouth daily * INSULIN GLARGINE (U-100) 100 * Inject 25 Units subcutaneousl* PEN NEEDLE, DIABETIC 32 GAUGE* 1 application three times amisha* INSULIN GLULISINE (U-100) 100* Inject 12 Units subcutaneousl* INSULIN GLULISINE (U-100) 100* Inject 6 Units subcutaneously* INSULIN GLULISINE (U-100) 100* Inject 8 Units subcutaneously* Problem List As Of Date 01/14/2018 Noted Resolved SUMMARY INVALID FOR* More... Acute thoracic aortic dissection (HCC) [I71.01] INVALID FOR* More... Primary hypertension [I10] INVALID FOR* More... History of IVDU (intravenous drug user) [F19.90]INVALID FOR* More... Smoking greater than 10 pack years [F17.210] INVALID FOR* More... History of depression [Z86.59] INVALID FOR* More... Type 2 diabetes mellitus with complication, wit*INVALID FOR* More... More... Alcohol-induced chronic pancreatitis (HCC) [K86*INVALID FOR* More... History of ruptured aneurysm of thoracic aorta *INVALID FOR*03/10/2016 More... Acute headache [R51] INVALID FOR* More... History of alcohol abuse [Z87.898] INVALID FOR* More... History of dissection of thoracic aorta [Z86.79]INVALID FOR* More... Preop testing [Z01.818] INVALID FOR*03/20/2016 More... Cardiac insufficiency (HCC) [I50.9] INVALID FOR*03/26/2016 More... Postoperative hypotension [I95.89] INVALID FOR*03/21/2016 More... Pain, postoperative, acute [G89.18] INVALID FOR* More... More... 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 Acute respiratory failure with hypoxia (HCC) [J*INVALID FOR*03/26/2016 More... Fluid overload [E87.70] INVALID FOR*03/22/2016 More... Hypoxemia [R09.02] INVALID FOR*03/26/2016 More... Discharge planning issues [Z02.9] INVALID FOR* More... 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] Pacemaker [Z95.0] Encounter Status:Closed by BRANNON BAUTISTA on 01/14/18 12 LEAD ELECTROCARDIOGRAM Observed: 01/07/2018 Status: F Source: [facility] 9:11 AM [facility] REPOSITORY [facility] Cardiovascular Services [address] [place] [address] 12 Lead EKG 12/27/17 0913 MR#: [id number] Acct: [id number] Name: ANALILIA TALLEY Rep #: [id number] : 1960 57 From: Trung Bob MD Attending Dr: Ashley Alvarado MD Status: DIS REI Ordering Dr: Denys Mcnally MD Date: 12/27/17 Location: [facility] Sex: M C Admitted: 12/27/17 Test Reason : CHEST PAIN Blood Pressure : / mmHG Vent. Rate : 060 BPM Atrial Rate : 060 BPM P-R Int : 188 ms QRS Dur : 128 ms QT Int : 436 ms P-R-T Axes : 065 001 085 degrees QTc Int : 436 ms Atrial-paced rhythm Right bundle branch block Abnormal ECG Confirmed by ZHAO FRANCISCO, TRUNG ([id number]), waiter/waitress tourist class BENJAMÍN JAVIER ([id number]) on 12/29/2017 11:18:14 AM Referred By: JESSICA Confirmed By:TRUNG BOB MD 12/29/17 1118 Date Trung Bob MD CC: No Primary Care Physician; Denys Mcnally MD; Ashley Alvarado MD Signed DISCHARGE SUMMARY Observed: 12/29/2017 Status: F Source: [facility] 2:31 PM [facility] REPOSITORY [facility] Medical Records Department [address] [facility] [place] [address] Discharge Summary 12/29/17 1018 MR#: [id number] Acct: [id number] Name: ANALILIA TALLEY Rep #: [id number] : 1960 57 From: Ashley Alvarado MD PCP: Care Physician, No Primary Status: DIS REI Y Location: [facility] [id number] Discharge Date and Diagnosis Date of Admission: 12/27/17 Date of Discharge: 12/29/17 - Primary Discharge Diagnosis Active and Suspected Problems Shortness of breath (Acute) Pleuritic chest pain (Acute) community acquired pneumonia fractured ribs - Secondary Discharge Diagnosis Chronic Problems Pacemaker (Chronic) 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 No focal consolidations or other acute abnormality identified. Electronically Signed: Cj Cunningham MD at 11:10 EST , Service support , Operations: None Procedures: None Summary of Care Provided: The patient is a 57 year old M with past medical history of hypertension, diabetes mellitus, coarctation of aorta status post surgery, status post aortic valve replacement and placement of ICD. He was admitted through the ED on 12/27/2017 with a complaint of left-sided chest pain, fever and shortness of breath which have been going on for a few days. 3 days prior to admission he had hit his chest on his discussed work and was told he had fractured some left rib subsequent to an urgent care center and had an x-ray. Pain medications did not help resolve pain and he kept on being short of breath. He therefore came into the ED with a complaint of fever and chills and a productive cough as well as the chest pain. He was managed for community-acquired pneumonia based on clinical suspicion. Chest x-ray did not show any evidence of infiltrate. Also also admitted to manage for the left rib fractures due to trauma. Pain improved with administration of pain medication and he was started on IV cefazolin and azithromycin. Patient remained stable condition improving was discharged home on 12/29/2017 with a prescription for p.o. Levaquin times 5 days. He is to follow-up with his primary care doctor. Patient seen and examined prior to discharge. He had no complaints and felt well. He denied any fever chills, any cough or chest pain, any shortness of breath, abdominal pain, diarrhea vomiting. Sided chest pain has improved significantly and shortness of breath has resolved. Labs and vitals reviewed. Home medications reviewed and reconciled. Examination Vitals: Vital Signs Height 5 ft 11 in Weight: 153 lb 14.122 oz Weight in Pounds 153.9 lbs Pulse Ox 97 General: Alert, Oriented x3, Cooperative HEENT: Atraumatic, PERRLA, EOMI, Normocephalic Oral: Moist Mucosa Neck: Supple, No JVD, Negative Carotid Bruits Lungs: - clear to auscultation Cardiovascular: Regular rate, Regular Rhythm, Normal S1, Normal S2, No murmurs Abdomen: Bowel Sounds Present, Soft, Non Tender, Non-Distended, No Hepato-splenomegaly Extremities: No clubbing, No cyanosis, No edema, Capillary Refill Less than 3 Seconds Skin: No rashes, No breakdown Musculoskeletal: No Tenderness to Palpation of Joints or Extremities Lymphatic: No Cervical, Supraclavicular, or Inguinal Adenopathy Neurological: Cranial nerves II-XII grossly intact Psych/Mental Status: Normal Affect, Appropriate, Alert and oriented to time, place, person, mood and affect Plan as discussed above. - Physical Exam Vital Signs Temp Pulse Resp BP Pulse Ox 98.2 F 59 L 18 153/78 H 97 12/29/17 09:15 12/29/17 09:21 12/29/17 09:15 12/29/17 09:15 12/29/17 09:15 Oxygen Delivery Method Room Air Weight: 153 lb 14.122 oz Body Mass Index (BMI) 21.4 Finger Stick Blood Glucose 125 Intake and Output for Last 24 Hours Intake Total 1228 / 1228 4241 / 4241 664 / 664 Balance 1228 / 1228 4241 / 4241 664 / 664 Microbiology Past 72 Hours 12/27/17 10:24 Streptococcus pneumoniae Antigen (M - Final Urine, Clean Catch 12/27/17 10:24 Legionella Antigen - Final Urine, Clean Catch Laboratory Tests Past 24 Hrs WBC 8.9 RBC 4.03 L Hgb 12.8 L Hct 37.9 L MCV 94.0 MCH 31.8 MCHC 33.8 RDW 13.5 POC Glucose POC Glucose 77 221 H 255 H POC Glucose 327 H Discharge Diet: Low fat/ Low Cholesterol Discharge Activity: Return to Normal Activity Weight Bearing Status: Weight bearing as tolerated Call your doctor if you observe: Fever of 101 or Higher, Coldness, Increased Pain, Shortness of breath, Chest pain Home Medications: Medications to take at Discharge Insulin Detemir [Levemir] 25 units SC BID 06/20/16 Lisinopril [Zestril] 20 mg PO DAILY 06/20/16 Metoprolol Tartrate 100 mg PO BID 06/20/16 Atorvastatin Calcium [Lipitor] 40 mg PO QHS 04/02/17 Fluoxetine HCl [Prozac] 40 mg PO DAILY 04/02/17 Multivitamin [Daily Multiple Vitamin] 1 each PO DAILY 12/27/17 Acetaminophen [Tylenol Tablet] 650 mg PO Q6H PRN PRN #30 tablet 12/29/17 Ibuprofen [Motrin] 400 mg PO Q6H PRN PRN #30 tablet 12/29/17 levoFLOXacin tablet [Levaquin tablet] 500 mg PO DAILY #5 tablet 12/29/17 Following Prescrptions Were Given to Patient: Acetaminophen [Tylenol Tablet] 650 mg PO Q6H PRN PRN #30 tablet PRN Reason: Mild Pain (scale 0-3)/T>100.7 Ibuprofen [Motrin] 400 mg PO Q6H PRN PRN #30 tablet PRN Reason: Mild Pain (1-3/10) levoFLOXacin tablet [Levaquin tablet] 500 mg PO DAILY #5 tablet Primary Care Physician: Care Physician,No Primary [Primary Care Provider] - Please follow up with your Primary Care Physician in: 1-2 weeks Disposition: Home Minutes spent on discharge:: 35 Patient Condition:: Stable Medical Necessity - Tobacco Use Smoking Status: Current every day smoker Meaningful Use Info Meaningful Use Diagnoses (Choose all that apply): None applicable Code Visit Inpatient E AND M: 55013 Disch Hosp 12/29/17 1431 <Electronically signed by Ashley Alvarado MD> Date Ashley Alvarado MD Cosigner Signature (if applicable): Date CC: No Primary Care Physician; Ashley Alvarado MD Signed DISCHARGE INSTRUCTION Observed: 12/29/2017 Status: F Source: [facility] 10:18 AM [facility] REPOSITORY [facility] Medical Records Department [address] [place] [address] Instructions for Home/Discharge Instructions 12/29/17 1016 MR#: [id number] Acct: [id number] Name: ANALILIA TALLEY Rep #: [id number] : 1960 57 From: Ashley Alvarado MD PCP: Care Physician, No Primary Status: ADM REI - Discharge Diagnoses Current Active Problems: Current Active and Chronic Problems Shortness of breath (Acute) Pleuritic chest pain (Acute) You will use the following diet at home:: Cardiac Your food should be the consistency of: Regular Your liquids should be the consistency of: Regular/Thin Discharge Activity: Return to Normal Activity Weight Bearing Status: Weight bearing as tolerated Call your doctor if you observe: Fever of 101 or Higher, Coldness, Increased Pain, Shortness of breath, Chest pain Allergies/Adverse Reactions: Allergies No Known Allergies Allergy (Verified 08/30/17 19:42) Medications to take at Discharge Insulin Detemir [Levemir] 25 units SC BID 06/20/16 Lisinopril [Zestril] 20 mg PO DAILY 06/20/16 Metoprolol Tartrate 100 mg PO BID 06/20/16 Atorvastatin Calcium [Lipitor] 40 mg PO QHS 04/02/17 Fluoxetine HCl [Prozac] 40 mg PO DAILY 04/02/17 Multivitamin [Daily Multiple Vitamin] 1 each PO DAILY 12/27/17 Acetaminophen [Tylenol Tablet] 650 mg PO Q6H PRN PRN #30 tablet 12/29/17 Ibuprofen [Motrin] 400 mg PO Q6H PRN PRN #30 tablet 12/29/17 levoFLOXacin tablet [Levaquin tablet] 500 mg PO DAILY #5 tablet 12/29/17 The following prescriptions were given: Acetaminophen [Tylenol Tablet] 650 mg PO Q6H PRN PRN #30 tablet PRN Reason: Mild Pain (scale 0-3)/T>100.7 Ibuprofen [Motrin] 400 mg PO Q6H PRN PRN #30 tablet PRN Reason: Mild Pain (1-3/10) levoFLOXacin tablet [Levaquin tablet] 500 mg PO DAILY #5 tablet Primary Care Physician: Care Physician,No Primary [Primary Care Provider] - Please follow up with your Primary Care Physician in: 1-2 weeks Test Results: Test results from this visit will be discussed in further detail at your follow-up appointment, if applicable. Proposed Discharge Date: 12/29/17 12/29/17 1018 <Electronically signed by Ashley Alvarado MD> Date Ashley Alvarado MD CC: No Primary Care Physician BEDSIDE GLUCOSE Collected: 12/29/2017 Status: F Source: [place] 6:18 AM [facility] REPOSITORY TYPE CODE TESTS RESULT OUT OF RANGE REFERENCE UNITS LAB L501.080 70-110 mg/dL Normal BEDSIDE GLU 77 Result Comment: MANAGEMENT OF PATIENT CARE PER NURSING PROTOCOL Performed By: #### L501.080 #### [facility] Point of Care [facility] [place] [address] CBC W/DIFF, AUTOMATED Collected: 12/29/2017 Status: F Source: [place] 5:55 AM [facility] REPOSITORY TYPE CODE TESTS RESULT OUT OF RANGE REFERENCE UNITS LAB L100.1000 4.4-11.0 K/mm3 Normal WBC 8.9 LAB L100.1200 4.6-6.2 M/mm3 Low RBC 4.03 LAB L100.1300 13.0-16.5 g/dl Low HGB 12.8 LAB L100.1400 40-54 % Low HCT 37.9 LAB L100.1500 80-94 fL Normal MCV 94.0 LAB L100.1600 27.0-32.0 pg Normal MCH 31.8 LAB L100.1700 32-36 g/gl Normal MCHC 33.8 LAB L100.1810 11.6-14.6 % Normal RDW CV 13.5 LAB L100.1820 35.1-43.9 fl High RDW SD 46.3 LAB L100.1900 150-450 K/mm3 Normal PLT 210 LAB L100.2000 6.2-12.0 fl Normal MPV 10.0 LAB L100.2100 47-70 % High NEUT% 72.7 LAB L100.2200 19-41 % Low LY% 16.8 LAB L100.2300 0-10 % Normal MONO% 8.2 LAB L100.2400 0-5 % Normal EO% 1.6 LAB L100.2500 0-1 % Normal BASO% 0.6 LAB L100.2550 0.0-0.9 % Normal IM GRAN % 0.100 Result Comment: IG% - Immature Granulocytes (promyelocytes, myelocytes and metamyelocytes) > 1% indicates that a LEFT SHIFT is Present. LAB L100.2620 2.0-7.7 X10 3/uL Normal Absolute Neut 6.5 LAB L100.2720 0.83-4.51 X10 3/ul Normal Absolute Lymph 1.49 Performed By: #### L100.0100 #### [facility] [address] [place], [place], [address] BASIC METABOLIC Collected: 12/29/2017 Status: F Source: [place] PROFILE ([facility]) 5:55 AM [facility] REPOSITORY TYPE CODE TESTS RESULT OUT OF RANGE REFERENCE UNITS LAB L501.0100 74-106 mg/dL Low GLU 66 Result Comment: Please note revised GLUCOSE reference range effective 2017. LAB L501.1000 7-18 mg/dL Normal BUN 17 LAB L501.1100 0.70-1.30 mg/dL Normal CREAT,SERUM 0.78 Result Comment: The validity of the calculated GFR AND GFRAA in patients over 70 years has not been determined. Clinical correlation is essential. LAB L501.1110 >60 mL/min Normal EST GFR 109 Result Comment: Non- GFR Calc LAB L501.1115 >60 mL/min Normal EST GFR - AA 132 Result Comment: GFR Calc LAB L501.1255 ml/min Normal Estimated CRCL 105.64 LAB L501.1300 10-20 RATIO High BUN/CRE 21.7 LAB L501.2200 8.5-10 mg/dL Low .1 CA 8.0 LAB L501.5300 136-14 mmol/L 5 NA Normal 141 LAB L501.5600 3.5-5. mmol/L 1 K Normal 3.8 LAB L501.5900 98-107 mmol/L High CL 111 LAB L501.6100 21.0-3 mmol/L Low 2.0 CO2 20.0 LAB L501.6200 5-15 GAP Normal 10 Performed By: #### L500.2500 #### [facility] [address] [place], [address] BEDSIDE GLUCOSE Collected: 12/28/2017 Status: F Source: [place] 10:13 PM [facility] REPOSITORY TYPE CODE TESTS RESULT OUT OF REFERENCE UNITS RANGE LAB L501.080 70-110 mg/dL High BEDSIDE GLU 221 Result Comment: MANAGEMENT OF PATIENT CARE PER NURSING PROTOCOL Performed By: #### L501.080 #### [facility] Point of Care [address] [place] [address] BEDSIDE GLUCOSE Collected: 12/28/2017 Status: F Source: [place] 4:28 PM [facility] REPOSITORY TYPE CODE TESTS RESULT OUT OF REFERENCE UNITS RANGE LAB L501.080 70-110 mg/dL High BEDSIDE GLU 255 Result Comment: MANAGEMENT OF PATIENT CARE PER NURSING PROTOCOL Performed By: #### L501.080 #### [facility] Point of Care [address] [place] [address] BEDSIDE GLUCOSE Collected: 12/28/2017 Status: F Source: [place] 11:15 AM [facility] REPOSITORY TYPE CODE TESTS RESULT OUT OF REFERENCE UNITS RANGE LAB L501.080 70-110 mg/dL High BEDSIDE GLU 327 Result Comment: MANAGEMENT OF PATIENT CARE PER NURSING PROTOCOL Performed By: #### L501.080 #### [facility] Point of Care [address] [place] [address] BEDSIDE GLUCOSE Collected: 12/28/2017 Status: F Source: [place] 6:39 AM [facility] REPOSITORY TYPE CODE TESTS RESULT OUT OF REFERENCE UNITS RANGE LAB L501.080 70-110 mg/dL High BEDSIDE GLU 201 Result Comment: MANAGEMENT OF PATIENT CARE PER NURSING PROTOCOL Performed By: #### L501.080 #### [facility] [place] [address] CBC W/DIFF, AUTOMATED Collected: 12/28/2017 Status: F Source: [place] 5:45 AM [facility] REPOSITORY TYPE CODE TESTS RESULT OUT OF RANGE REFERENCE UNITS LAB L100.1000 4.4-11.0 K/mm3 High WBC 11.4 LAB L100.1200 4.6-6.2 M/mm3 Low RBC 4.07 LAB L100.1300 13.0-16.5 g/dl Normal HGB 13.0 LAB L100.1400 40-54 % Low HCT 37.6 LAB L100.1500 80-94 fL Normal MCV 92.4 LAB L100.1600 27.0-32.0 pg Normal MCH 31.9 LAB L100.1700 32-36 g/gl Normal MCHC 34.6 LAB L100.1810 11.6-14.6 % Normal RDW CV 12.8 LAB L100.1820 35.1-43.9 fl Normal RDW SD 42.2 LAB L100.1900 150-450 K/mm3 Normal PLT 234 LAB L100.2000 6.2-12.0 fl Normal MPV 10.7 LAB L100.2100 47-70 % High NEUT% 78.9 LAB L100.2200 19-41 % Low LY% 10.5 LAB L100.2300 0-10 % Normal MONO% 8.9 LAB L100.2400 0-5 % Normal EO% 1.1 LAB L100.2500 0-1 % Normal BASO% 0.3 LAB L100.2550 0.0-0.9 % Normal IM GRAN % 0.300 Result Comment: IG% - Immature Granulocytes (promyelocytes, myelocytes and metamyelocytes) > 1% indicates that a LEFT SHIFT is Present. LAB L100.2620 2.0-7.7 X10 3/uL High Absolute Neut 9.0 LAB L100.2720 0.83-4.51 X10 3/ul Normal Absolute Lymph 1.20 Performed By: #### L100.0100 #### [facility] [address] [place], [place], [address] BASIC METABOLIC Collected: 12/28/2017 Status: F Source: [place] PROFILE (B[facility]) 5:45 AM [facility] REPOSITORY TYPE CODE TESTS RESULT OUT OF RANGE REFERENCE UNITS LAB L501.0100 74-106 mg/dL High GLU 177 Result Comment: Fasting Glucose result greater than or equal to 126 mg/dL suggests DIABETES MELLITUS per A.D.A. criteria. Please note revised GLUCOSE reference range effective 2017. LAB L501.1000 7-18 mg/dL High BUN 21 LAB L501.1100 0.70-1.30 mg/dL Normal CREAT,SERUM 0.84 Result Comment: The validity of the calculated GFR AND GFRAA in patients over 70 years has not been determined. Clinical correlation is essential. LAB L501.1110 >60 mL/min Normal EST GFR 101 Result Comment: Non- GFR Calc LAB L501.1115 >60 mL/min Normal EST GFR - AA 122 Result Comment: GFR Calc LAB L501.1255 ml/min Normal Estimated CRCL 98.10 LAB L501.1300 10-20 RATIO High BUN/CRE 25.0 LAB L501.2200 8.5-10 mg/dL Low .1 CA 8.2 LAB L501.5300 136-14 mmol/L Normal 5 NA 136 LAB L501.5600 3.5-5. mmol/L Normal 1 K 3.9 LAB L501.5900 98-107 mmol/L Normal CL 104 LAB L501.6100 21.0-3 mmol/L Normal 2.0 CO2 24.0 LAB L501.6200 5-15 Normal GAP 8 Performed By: #### L500.2500 #### [facility] [address] [place], [place], [address] BEDSIDE GLUCOSE Collected: 12/27/2017 Status: F Source: [place] 9:47 PM [facility] REPOSITORY TYPE CODE TESTS RESULT OUT OF REFERENCE UNITS RANGE LAB L501.080 70-110 mg/dL High BEDSIDE GLU 216 Result Comment: MANAGEMENT OF PATIENT CARE PER NURSING PROTOCOL Performed By: #### L501.080 #### [facility] Point of Care [address] [place] [address] BEDSIDE GLUCOSE Collected: 12/27/2017 Status: F Source: [place] 4:18 PM [facility] REPOSITORY TYPE CODE TESTS RESULT OUT OF REFERENCE UNITS RANGE LAB L501.080 70-110 mg/dL High BEDSIDE GLU 316 Result Comment: MANAGEMENT OF PATIENT CARE PER NURSING PROTOCOL Performed By: #### L501.080 #### [facility] Point of Care [address] [place] [address] HEMOGLOBIN A1C Collected: 12/27/2017 Status: F Source: [place] 4:18 PM [facility] REPOSITORY TYPE CODE TESTS RESULT OUT OF RANGE REFERENCE UNITS LAB L501.9985 4.2-6.3 % High HGB A1C 13.2 Performed By: #### L501.9985 #### [facility] [address] [facility] [place], [address] EMERGENCY DEPARTMENT Observed: 12/27/2017 Status: F Source: [place] SUMMARY 2:24 PM [facility] REPOSITORY [facility] Medical Records Department [address] [place] [address] Emergency Department Summary 12/27/17 0938 MR#: [id number] Acct: [id number] Name: ANALILIA TALLEY Rep #: [id number] : 1960 57 From: Denys Mcnally MD PCP: Care Physician, No Primary Status: ADM REI - ER Visit Summary Date of Service: 12/27/17 Chief Complaint: Weakness, cough, shortness of breath History of Present Illness: The patient is a 57 M with history of alcohol abuse, coronary vascular disease, CABG by 3 presents with shortness of breath. The patient was seen here 3 days ago. At that time, he was at work. He was working on a table but moves. He states the table struck him on the left chest. He was seen here and diagnosed with a left-sided rib fracture. He was given analgesics and incentive spirometer. He states that he feels like his pain is gotten worse. He is at worsening cough, fever, chills, and feels like he cannot catch his breath. He is also generalized malaise and fatigue. The patient does have a history of noncompliance with medications. He also has a history of alcohol and opiate abuse. Physical Examination: Vital signs reviewed General: Well-nourished, well-developed Head: Normocephalic, atraumatic Eyes: Pupils equal and reactive, extraocular muscles intact Neck, supple, no lymphadenopathy Heart: Regular rate and rhythm Respiratory: No distress, diminished in the left base, tenderness with palpation Abdomen: Soft, nontender, nondistended, no peritoneal signs Back: Nontender Extremities: Nontender, no edema, no cords Skin: Normal color no rash Neuro: Alert and oriented, no focal or lateralizing deficits Test Results: [] Emergency Department Course and Treatment: The patient presents with worsening dyspnea, productive sputum, fever, and chills. My suspicion is that he has developing pneumonia. His labs are relatively unremarkable except for hyperglycemia. His x-ray does not show definitive infiltrate, but he does have change in lung sounds in his left base with productive sputum. Given his history of fracture, difficulty breathing, and infectious symptoms I do feel that he would benefit from admission. Patient was started on community- acquired pneumonia coverage. He was discussed with the hospitalist will be admitted at this time. Treatment Plan: [] Disposition: Admission Impression: 1. Left rib fracture 2. Clinical pneumonia This note was generated with [employer] dictation software. It may contain incorrect words, spelling, and punctuation that were not noted in review of the chart prior to signing ED Disposition - Plan for ED Patient: Chief Complaint: Weakness What to do if you have Problems For any increased pain, shortness of breath, bleeding, nausea or vomiting, chest pain, or any unexpected problems, contact your Primary Care Provider. Call [facility] ([phone]) or report to the closest Emergency Room. Call 911 if necessary. 12/27/17 1424 <Electronically signed by Denys Mcnally MD> Date Denys Mcnally MD Cosigner Signature (If Indicated): Date CC: No Primary Care Physician BEDSIDE GLUCOSE Collected: 12/27/2017 Status: F Source: [place] 1:15 PM [facility] REPOSITORY TYPE CODE TESTS RESULT OUT OF REFERENCE UNITS RANGE LAB L501.080 70-110 mg/dL High BEDSIDE GLU 443 Result Comment: MANAGEMENT OF PATIENT CARE PER NURSING PROTOCOL Performed By: #### L501.080 #### [facility] Point of Care [address] [place] [address] HISTORY AND PHYSICAL Observed: 12/27/2017 Status: F Source: [place] EXAM 12:33 PM [facility] REPOSITORY [facility] Medical Records Department [address] [place] [address] History and Physical 12/27/17 1211 MR#: [id number] Acct: [id number] Name: ANALILIA TALLEY Rep #: [id number] : 1960 57 From: Ashley Alvarado MD PCP: Care Physician, No Primary Status: ADM REI Y Location: [place] [address] Problem List (1) Shortness of breath Status: Acute (2) Pleuritic chest pain Status: Acute History of Present Illness Date of Admission: 12/27/17 Chief Complaint: shortness of breath, fever, pleuritic chest pain The patient is a 57 year old M with past medical history of hypertension, diabetes mellitus, coarctation of aorta status post surgery, status post aortic valve replacement and placement of ICD. He was admitted through the ED on 12/27/2017 with a complaint of left-sided chest pain, fever and shortness of breath which have been going on for a few days. 3 days ago, patient states he was sitting the chest by his desk at work and on going to an urgent care center he was told that he had fractured some left ribs. He was given some pain medication. However pain persisted and he gradually became short of breath. He had subjective fever and chills and also had a cough which was productive of greenish sputum. Today he went back to the urgent care and was told to come to the ED. In the ED, vitals were significant for temperature of 98.2, blood pressure 149/102, respiratory rate of 20 and pulse rate of 60. Chemistry shows sodium of 130 and glucose of 477 with initial troponin which was negative. He had BNP of 160.6. CBC showed no leukocytosis. Chest x-ray showed stable cardiomegaly with low volume inspiration and atelectasis versus scarring at the left base with no focal consultations or other acute abnormality identified. He is been admitted to be managed for probable pneumonia based on clinical suspicion. 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 Psychiatric History: No pertinent psych hx Lives: Spouse/ Significant Other Smoking Status: Current every day smoker - one pack per day for 25 years. Alcohol: Heavy - says he drinks at least a pint of screwdriver on the weekends Drugs: None - *Family History Maternal History Items: Dementia Paternal History Items: Heart Disease Review of Systems Constitutional: Reports: Chills, Fever. Denies: Anorexia, Night Sweats, Weakness, Fatigue Eyes: Denies: Blurred vision HEENT: Denies: Head Aches, Sinus Congestion, Sinus Drainage Cardiovascular: Reports: Chest Pain - left sided chest pleuritic chest pain. Denies: Chest Pressure, Edema, Heaviness, Light Headedness Respiratory: Reports: Cough, Pleuritic Pain, Sputum production - greenish sputum. Denies: Wheezing Gastrointestinal: Denies: Abdominal Pain, Nausea, Vomiting Genitourinary: Denies: Dysuria Musculoskeletal: Denies: Joint Pain, Joint Tenderness Skin: Denies: Rash, Wounds Neurological: Denies: Numbness, Tingling, Focal weakness Psychiatric: Denies: Anxiety, Depression, Homicidal Ideations, Suicidal Ideations Hematologic/ Lymphatic: Denies: Easy Bruising, Easy Bleeding VTE Information - Inpt Only VTE Present on Admission: No VTE Pharm Prophylaxis ordered?: Yes Patient Problems: Active and Suspected Problems Shortness of breath (Acute) Pleuritic chest pain (Acute) - Physical Exam General: Alert, Oriented x3, Cooperative, No apparent distress HEENT: Atraumatic, PERRLA, EOMI, Normocephalic Oral: Moist Mucosa Neck: Supple, No JVD, Negative Carotid Bruits Lungs: - - decreased breath sounds in left lower lung smith with few crackles auscultated. Diminished air entry due to poor inspiratory effort from pain. Cardiovascular: Regular rate, Regular Rhythm, Normal S1, Normal S2, No murmurs Abdomen: Bowel Sounds Present, Soft, Non Tender, Non-Distended, No Hepato-splenomegaly Extremities: No clubbing, No cyanosis, No edema, Capillary Refill Less than 3 Seconds Skin: No rashes, No breakdown Musculoskeletal: - - tenderness on palpation of right lower rib cage Lymphatic: No Cervical, Supraclavicular, or Inguinal Adenopathy Neurological: Cranial nerves II-XII grossly intact Psych/Mental Status: Normal Affect, Appropriate, Alert and oriented to time, place, person, mood and affect Vital Signs Temp Pulse Resp BP Pulse Ox 98.2 F 60 20 H 149/102 H 97 12/27/17 09:11 12/27/17 09:42 12/27/17 09:42 12/27/17 09:11 12/27/17 09:11 Oxygen Delivery Method Room Air Weight: 165 lb Body Mass Index (BMI) 23.0 Finger Stick Blood Glucose 125 Laboratory Tests Past 24 Hrs WBC 10.1 RBC 4.74 Hgb 15.3 Hct 42.6 MCV 89.9 MCH 32.3 H MCHC 35.9 RDW 12.7 RDW Differential 41.2 WBC RBC Hgb Hct MCV MCH MCHC RDW RDW Differential Plt Count MPV Immature Gran % (Auto) Neut % (Auto) Lymph % (Auto) Diagnostic Data Chest X-Ray 12/27/17 10:28 IMPRESSION: Stable cardiomegaly, low volume inspiration and atelectasis/scarring at the left base. No focal consolidations or other acute abnormality identified. Electronically Signed: Cj Cunningham MD at 11:10 EST , Service support , Assessment/Plan All Active Problems Shortness of breath (Acute) Pleuritic chest pain (Acute) 57 y.o male admitted with a complaint of fever, chills, pleuritic chest pain, SOB and productive cough 1. Community acquired pneumonia * based on clinical suspicion * CXR showed no infiltrate; * has no leucocytosis; received the flu shot. * will check urine for strep and legionella antigens. * Get sputum cultures and blood cultures. * Started on IV ceftriaxone and azithromycin in the ED. We will continue * IVF NS 100cc/hr * tylenol for pain * 2. Hyponatremia * Sodium is 130. Baseline is usually within normal limits. Cause of this is unclear as patient does not look dehydrated noisy fluid overloaded. * Will check serum osmolality. * Will hydrate with IV fluid normal saline for now. Also has pacemaker and ICD in place to the cause for this is unclear * Of note patient does have extensive smoking history though chest x-ray did not show any lung nodule. * 3. 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 Diabetes mellitus * Blood sugar was 477 on admission. Is on insulin detemir 25IU bid and claims compliance with it and states he last took it this morning. * Will check A1c. * Insulin Sliding scale. Accu-Cheks AC at bedtime. * 5. History of aortic valve coarctation s/p valve replacement * Also has pacemaker and ICD in place the reason for this is not clear * Will monitor * 6. Hyperlipidemia: On statin 7. Hypertension: On lisinopril and metoprolol DVT prophylaxis: heparin Code status: * full code. Counseled about different types of CODE STATUS including DNR CC, DNR CC and full code. Patient elects to be full code. Total [id number] time 16 minutes. Code Visit OBSV E AND M: 28409 Initial observation care L3 Procedures: 13700 Advncd Care Plan 30 Min 12/27/17 1233 <Electronically signed by Ashley Alvarado MD> Date Ashley Alvarado MD Cosigner Signature: Date (if applicable) CC: No Primary Care Physician; Ashley Alvarado MD Signed URINALYSIS, COMPLETE Collected: 12/27/2017 Status: F Source: [place] 10:24 AM [facility] REPOSITORY Order Comment: Order Date: 12/27/17 Has pt arrived? Y How was Urine Obtained? CLEAN CATCH TYPE CODE TESTS RESULT OUT OF RANGE REFERENCE UNITS LAB L400.3000 Yellow COLOR Normal Yellow LAB L400.3050 Clear Normal CLARITY Clear LAB L400.3200 Normal mg/dl High GLUCOSE, UR 1000 LAB L400.3300 Negative mg/dL Normal BILIRUBIN URINE Negative LAB L400.3400 Negative mg/dl High 5 KETONE UR LAB L400.3465 1.002-1.030 Normal SP.GR. DIPSTX 1.010 LAB L400.3550 5.0 - 8.0 pH UR Normal 6.0 LAB L400.3600 Negative mg/dl High PROT 30 DIPSTX LAB L400.3700 Normal mg/dl Normal UROBILI Normal LAB L400.3750 Negative Normal NITRITE UR Negative LAB L400.3780 Negative /ul High 10 OCCULT BLOOD-UR LAB L400.3800 Negative /ul LEUK Normal ESTERASE Negative LAB L400.4050 0-5 /hpf WBC 0 Normal SEEN LAB L400.4100 0-5 /hpf Normal RBC-UA 0-5 SEEN LAB L400.4150 0-5 /hpf SQUAM Normal EPI 0-5 SEEN LAB L400.4300 None Seen /hpf 0 Normal BACTERIA SEEN LAB L400.4350 <or=2+ /hpf 0 Normal MUCUS, URINE SEEN Performed By: #### L400.0001 #### [facility] [address] [place], [address] STREP Observed: 12/27/2017 Status: C Source: [place] PNEUMONIAE ANTIG(UR,CSF) 10:24 AM [facility] REPOSITORY Order Date: 12/27/17 S pneumo Ag URINE INTERPRETATION Negative Urine Presumptive negative for pneumococcal pneumonia, suggesting no current or recent pneumococcal infection. Infection due to S pneumoniae cannot be ruled out since the antigen present in the sample may be below the detection limit of the test. Strep pneumo Test Negative URINE (See interpretation below) Performed By: #### M300.4600 #### [facility] [address] [place], [address] Observed: 12/27/2017 Status: C Source: [place] LEGIONELLA ANTIGEN 10:24 AM [facility] URINE REPOSITORY Order Date: 12/27/17 Legionella, UR Legionella Antigen result interpretation: Negative Presumptive negative for Legionella pneumophila serogroup 1 antigen in urine, suggesting no recent or current infection. Legionella Ag, Urine Negative (See interpretation below) Performed By: #### M300.4500 #### [facility] [address] [facility] [place], [address] Observed: 12/27/2017 Status: F Source: [place] CULTURE, BLOOD (WB) 9:59 AM [facility] REPOSITORY BC No growth in 5 days. Performed By: #### M200.1000 #### [facility] [address] [facility] [place], [address] CBC W/DIFF, AUTOMATED Collected: 12/27/2017 Status: F Source: [place] 9:47 AM [facility] REPOSITORY TYPE CODE TESTS RESULT OUT OF RANGE REFERENCE UNITS LAB L100.1000 4.4-11.0 K/mm3 Normal WBC 10.1 LAB L100.1200 4.6-6.2 M/mm3 Normal RBC 4.74 LAB L100.1300 13.0-16.5 g/dl Normal HGB 15.3 LAB L100.1400 40-54 % Normal HCT 42.6 LAB L100.1500 80-94 fL Normal MCV 89.9 LAB L100.1600 27.0-32.0 pg High MCH 32.3 LAB L100.1700 32-36 g/gl Normal MCHC 35.9 LAB L100.1810 11.6-14.6 % Normal RDW CV 12.7 LAB L100.1820 35.1-43.9 fl Normal RDW SD 41.2 LAB L100.1900 150-450 K/mm3 Normal PLT 278 LAB L100.2000 6.2-12.0 fl Normal MPV 10.5 LAB L100.2100 47-70 % High NEUT% 76.5 LAB L100.2200 19-41 % Low LY% 13.1 LAB L100.2300 0-10 % Normal MONO% 9.3 LAB L100.2400 0-5 % Normal EO% 0.6 LAB L100.2500 0-1 % Normal BASO% 0.3 LAB L100.2550 0.0-0.9 % Normal IM GRAN % 0.200 Result Comment: IG% - Immature Granulocytes (promyelocytes, myelocytes and metamyelocytes) > 1% indicates that a LEFT SHIFT is Present. LAB L100.2620 2.0-7.7 X10 3/uL Normal Absolute Neut 7.7 LAB L100.2720 0.83-4.51 X10 3/ul Normal Absolute Lymph 1.32 Performed By: #### L100.0100 #### [facility] [address] [place], [place], [address] LACTIC ACID Collected: 12/27/2017 Status: F Source: [place] 9:47 AM [facility] REPOSITORY Order Comment: Yes/No query for Sepsis Lactate Rule Y TYPE CODE TESTS RESULT OUT OF RANGE REFERENCE UNITS LAB L503.6005 0.4-2.0 mmol/L Normal LACTIC ACID 1.8 Performed By: #### L503.6005 #### [facility] [address] [place], [place], [address] COMPREHENSIVE METABOLIC Collected: 12/27/2017 Status: F Source: [facility] 9:47 AM [facility] REPOSITORY TYPE CODE TESTS RESULT OUT OF RANGE REFERENCE UNITS LAB L501.0100 74-106 mg/dL High alert GLU 477 Result Comment: Critical Result(s) Called at: 10:22:57 12/27/2017 by: Chiquis Greene to [facility] Glucose result greater than or equal to 200 mg/dL suggests DIABETES MELLITUS per A.D.A. criteria. Please note revised GLUCOSE reference range effective 2017. LAB L501.1000 7-18 mg/dL High BUN 28 LAB L501.1100 0.70-1.30 mg/dL Normal CREAT,SERUM 1.26 Result Comment: The validity of the calculated GFR AND GFRAA in patients over 70 years has not been determined. Clinical correlation is essential. LAB L501.1110 >60 mL/min Normal EST GFR 63 Result Comment: Non- GFR Calc LAB L501.1115 >60 mL/min Normal EST GFR - AA 76 Result Comment: GFR Calc LAB L501.1255 ml/min Normal Estimated CRCL 70.12 LAB L501.1300 10-20 RATIO High BUN/CRE 22.2 LAB L501.1500 6.4-8. g/dL High 2 T PROT 8.3 LAB L501.1800 3.2-5. g/dL Normal 0 ALB 3.8 LAB L501.1950 2.2-4. g/dL High 2 GLOB 4.5 LAB L501.2000 0.9-2. RATIO Low 4 A/G 0.8 LAB L501.2200 8.5-10 mg/dL Normal .1 CA 10.0 LAB L501.4100 15-37 U/L Normal AST 15 LAB L501.4305 45-117 U/L High ALK P 210 LAB L501.4405 16-61 U/L Normal ALT 35 LAB L501.4600 0.20-1 mg/dL Normal .00 T BILI 0.50 LAB L501.5300 136-14 mmol/L Low 5 NA 130 LAB L501.5600 3.5-5. mmol/L Normal 1 K 5.0 LAB L501.5900 98-107 mmol/L Low CL 92 LAB L501.6100 21.0-3 mmol/L Normal 2.0 CO2 24.0 LAB L501.6200 5-15 Normal GAP 14 Performed By: #### L500.4050, L501.4010 #### [facility] [address] [place], [address] TROPONIN-I Collected: 12/27/2017 Status: F Source: [place] 9:47 AM [facility] REPOSITORY TYPE CODE TESTS RESULT OUT OF RANGE REFERENCE UNITS LAB L501.4010 <0.045 ng/mL Normal < 0.015 TROPONIN-I Result Comment: TROPONIN-I EXPECTED VALUES <0.045 Negative 0.045 - 0.590 Consistent with Cardiac Damage > OR = 0.600 Critical Value Not every elevated troponin is indicative of WA. These values should be used with clinical judgement in examining the patient's clinical picture for diagnosis. To establish a diagnosis of WA versus myocardial injury, there must be a demonstrated rise and/or fall in the troponin values, in addition to ischemic symptoms, EKG changes, new regional wall motion abnormality, and/or angiographical evidence. PLEASE NOTE: REFERENCE RANGES EDITED 17 Performed By: #### L500.4050, L501.4010 #### [facility] [address] [place], [address] BNP,B-TYPE NATRIURETIC Collected: 12/27/2017 Status: F Source: [place] 9:47 AM [facility] REPOSITORY TYPE CODE TESTS RESULT OUT OF RANGE REFERENCE UNITS LAB L503.6620 0-100 pg/mL High B-TYPE 160.6 EMILIANA PEP Performed By: #### L503.6620 #### [facility] [address] [place], [address] OSMOLALITY, SERUM Collected: 12/27/2017 Status: F Source: [place] 9:47 AM [facility] REPOSITORY TYPE CODE TESTS RESULT OUT OF RANGE REFERENCE UNITS LAB L501.7300 275-295 mOsm/KG High 302 OSMOLALITY,S ER Performed By: #### L501.7300 #### [facility] [address] [place], [address] Observed: 12/27/2017 Status: F Source: [place] CULTURE, BLOOD (WB) 9:47 AM [facility] REPOSITORY BC No growth in 5 days. Performed By: #### M200.1000 #### [facility] [address] [facility] [place], [address] CHEST PA AND LATERAL Observed: 12/27/2017 Status: F Source: [place] 9:26 AM [facility] REPOSITORY [facility] Imaging Services [address] [place] [address] Chest PA and Lateral MR#: [id number] Acct: [id number] Name: ANALILIA TALLEY Rep #: [id number] : 1960 M 57 From: Cj Cunningham MD PCP: Care Physician, No Primary Status: REG ER Study: Chest PA and Lateral Date of Exam: 12/27/17 Exam# [id number] Ordering Dr: Denys Mcnally MD STUDY: X-RAY CHEST REASON FOR EXAM: Male, 57 years old. Recent left rib fracture with pain. Presents with cough and fever. TECHNIQUE: Frontal and lateral views of the chest. COMPARISON: December 24, 2017 FINDINGS: There is low volume inspiration. There is atelectasis/scarring at the left base relatively unchanged. There is no demonstrated pleural abnormality. There is stable cardiomegaly with sternotomy wires and dual lead cardiac pacer. Valve replacement is stable. Normal mediastinum and akbar. Normal visualized pulmonary arteries. Normal visualized aortic arch and descending thoracic aorta. Normal visualized thoracic spine. Left ninth rib fracture is again identified. There is no demonstrated abnormality of the visualized soft tissue structures of the upper abdomen. RAD/Chest PA and Lateral IMPRESSION: Stable cardiomegaly, low volume inspiration and atelectasis/scarring at the left base. No focal consolidations or other acute abnormality identified. Electronically Signed: Cj Cunningham MD at 11:10 EST , Service support , CC: No Primary Care Physician; Denys Mcnally MD Brake Coupler Dinkey: Signed EMERGENCY DEPARTMENT Observed: 12/24/2017 Status: F Source: [place] SUMMARY 7:11 PM [facility] REPOSITORY [facility] Medical Records Department [address] [place] [address] Emergency Department Summary 12/24/17 1902 MR#: [id number] Acct: [id number] Name: DARRINJANEENANALILIA J Rep #: [id number] : 1960 57 From: Chris Harvey PCP: Care Physician, No Primary Status: PRE ER - ER Visit Summary Date of Service: 12/24/17 Chief Complaint: Left rib injury History of Present Illness: The patient is a 57 M presents for evaluation from work injury occurring this morning at 6 AM 13 hours ago. 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 No dyspnea. Pain with palpation and deep breaths. History of cardiac history with aortic valve repair, has AICD. Has tolerated Scotia in the past. Physical Examination: General: Alert and oriented 3, no acute distress HEENT: Normocephalic, atraumatic. Moist mucosa membranes Neck: supple, nontender. Cardiovascular: Regular rate and rhythm, no murmurs Respiratory: Normal breath sounds, symmetric, no distress. Tender palpation left lateral lower rib. No crepitus. Abdomen: Soft, nontender, nondistended Extremities: Nontender, no edema, pulses intact 4 Neuro: no focal neurological deficits. Test Results: Left rib series: Fracture left ninth rib. No pneumothorax Emergency Department Course and Treatment: X-ray obtained confirms fracture ninth rib. No pneumothorax. Discomfort treated with Scotia. Incentive spirometer provided. Work restrictions, follow-up with [facility]. OARRS negative Treatment Plan: [] Disposition: Discharge Impression: 1. Closed left ninth rib fracture This note was generated with [employer] dictation software. It may contain incorrect words, spelling, and punctuation that were not noted in review of the chart prior to signing ED Disposition - Plan for ED Patient: Disposition: Home or Assisted Living Chief Complaint: Chest Other Diagnosis: Closed left ninth rib fracture Instructions: ED Fx Rib Prescriptions: Hydrocodone Bitart/Apap 5-325 [Scotia 5MG-325MG] 1 tablet PO Q6H PRN PRN 3 Days #12 tablet PRN Reason: Pain Referrals: [facility] [GROUP OF PHYSICIANS] - 3-5 Days Additional Instructions: Left ninth rib fracture. Incentive spirometer every 2 hours while awake. Pain medications as needed. Follow-up with [facility]. What to do if you have Problems For any increased pain, shortness of breath, bleeding, nausea or vomiting, chest pain, or any unexpected problems, contact your Primary Care Provider. Call [facility] ([phone]) or report to the closest Emergency Room. Call 911 if necessary. 12/24/171910 <Electronically signed by Chris Harvey> Date Chris Murray Signature (If Indicated): Date CC: No Primary Care Physician RIBS UNI MIN 3V Observed: 12/24/2017 Status: F Source: [place] W/PA CHEST 5:51 PM [facility] REPOSITORY [facility] Imaging Services [address] [place] [address] Ribs Uni Min 3V w/PA Chest MR#: [id number] Acct: [id number] Name: SAURAVRALPH LANDAVERDEHERMANN Alvarez Rep #: [id number] : 1960 M 57 From: Analilia Ruiz MD PCP: Care Physician, No Primary Status: PRE ER Study: Ribs Uni Min 3V w/PA Chest Date of Exam: 12/24/17 Exam# [id number] Ordering Dr: Provider,Ed P. STUDY: X-RAY - UNILATERAL RIBS ( LEFT ) WITH CHEST REASON FOR EXAM: Male, 57 years old. Left rib pain. Injury. TECHNIQUE - RIBS: 4 view(s) of the ribs. TECHNIQUE - CHEST: Frontal view COMPARISON: 08/06/2017 FINDINGS - RIBS: There is a nondisplaced fracture of the left ninth rib. There are no additional displaced rib fractures identified. FINDINGS - CHEST: There is stable linear scarring in the left lower lobe. The lungs are otherwise clear. There are no pleural effusions. There is no pneumothorax. The heart is normal in size. Again noted are sternotomy wires and a pacemaker. RAD/Ribs Uni Min 3V w/PA Chest IMPRESSION: RIBS: Nondisplaced fracture of the left ninth rib. CHEST: Clear lungs. Electronically Signed: Analilia Ruiz, at 18:33 EST Tel , Service support , CC: No Primary Care Physician; ED PHYSICIAN PROVIDER Brake Coupler Dinkey: Signed OBSOLETE Observed: 12/20/2017 Status: COMPLETED Source: [place] 12:00 AM [facility] REPOSITORY Refill (AGCARDWST) ANALILIA TALLEY ([id number]) 1960 M [facility] Date Time Provider Department 12/20/17 LUCIANO LARKIN AGCARDWST During your visit today, we recorded the following information about you: Maru Nath LPN 12/20/2017 9:05 AM Signed Patient has been identified by name and date of : Yes Pending Prescriptions Disp Refills LISINOPRIL 20 MG TABLET 60 tablet 11 Sig: TAKE 1 TABLET BY MOUTH TWICE A DAY REGINA: Yes RX INSTRUCTIONS: Patient requesting a call when RX is approved and sent to the pharmacy. Please call patient at: home Maru Nath LPN Allergies As of Date: 12/20/2017 (No Known Allergies) Date Reviewed: 07/07/2017 Reviewed by: Marisol Dutton - Fully Assessed Reason for Visit: Refill Request [94] Order(s):lisinopril (ZESTRIL, PRINIVIL) 20 mg tabletTAKE 1 TABLET BY MOUTH TWICE A DAYDisp: 60 tabletRfl: 11 Prescriptions as of 12/20/2017 Sig: LISINOPRIL 20 MG TABLET TAKE 1 TABLET BY MOUTH TWICE * ATORVASTATIN 40 MG TABLET TAKE 1 TABLET BY MOUTH ONCE D* METOPROLOL TARTRATE 100 MG TA* TAKE 1 TABLET BY MOUTH TWICE * INSULIN DETEMIR (U-100) 100 U* Inject subcutaneously as dir* METFORMIN 500 MG TABLET Take 500 mg by mouth twice da* FLUOXETINE 20 MG CAPSULE Take 20 mg by mouth once lorene* MULTIVITAMIN ORAL Take 1 tablet by mouth once d* ASPIRIN 81 MG CHEWABLE TABLET Take 2 tablets by mouth once * MAGNESIUM HYDROXIDE 400 MG/5 * Take 30 mL by mouth once lorene* THERAPEUTIC MULTIVITAMIN TABL* Take 1 tablet by mouth daily * INSULIN GLARGINE (U-100) 100 * Inject 25 Units subcutaneousl* PEN NEEDLE, DIABETIC 32 GAUGE* 1 application three times amisha* INSULIN GLULISINE (U-100) 100* Inject 12 Units subcutaneousl* INSULIN GLULISINE (U-100) 100* Inject 6 Units subcutaneously* INSULIN GLULISINE (U-100) 100* Inject 8 Units subcutaneously* Problem List As Of Date 12/20/2017 Noted Resolved SUMMARY INVALID FOR* Priority: A More... Acute thoracic aortic dissection (HCC) [I71.01] INVALID FOR* Priority: Very Severe More... Primary hypertension [I10] INVALID FOR* Priority: C More... History of IVDU (intravenous drug user) [F19.90]INVALID FOR* More... Smoking greater than 10 pack years [F17.210] INVALID FOR* Priority: B More... History of depression [Z86.59] INVALID FOR* More... Type 2 diabetes mellitus with complication, wit*INVALID FOR* Priority: E More... More... Alcohol-induced chronic pancreatitis (HCC) [K86*INVALID FOR* More... History of ruptured aneurysm of thoracic aorta *INVALID FOR*03/10/2016 More... Acute headache [R51] INVALID FOR* More... History of alcohol abuse [Z87.898] INVALID FOR* More... History of dissection of thoracic aorta [Z86.79]INVALID FOR* More... Preop testing [Z01.818] INVALID FOR*03/20/2016 More... Cardiac insufficiency (HCC) [I50.9] INVALID FOR*03/26/2016 Priority: Severe More... Postoperative hypotension [I95.89] INVALID FOR*03/21/2016 Priority: B More... Pain, postoperative, acute [G89.18] INVALID FOR* Priority: D More... More... 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 Acute respiratory failure with hypoxia (HCC) [J*INVALID FOR*03/26/2016 Priority: B More... Fluid overload [E87.70] INVALID FOR*03/22/2016 Priority: F More... Hypoxemia [R09.02] INVALID FOR*03/26/2016 More... Discharge planning issues [Z02.9] INVALID FOR* Priority: M More... 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] Pacemaker [Z95.0] Prescriptions ordered this encounter Disp Refills Start End LISINOPRIL 20 MG TABLET 60 t* 11 12/20/2017 Sig: TAKE 1 TABLET BY MOUTH TWICE A DAY Medications Discontinued During This Encounter lisinopril (ZESTRIL, PRINIVIL) 20 mg* 60 t* 11 11/12/2016 12/20/2017 Route: ORAL Sig: Take 1 tablet by mouth twice daily. Disc: Reason for discontinue is not on file. Encounter Status:Closed by ARCADIO FARRAR MA on 12/20/17 PRO Collected: 11/10/2017 Status: F Source: [facility] 5:05 AM [facility] REPOSITORY TYPE CODE TESTS RESULT OUT OF REFERENCE UNITS RANGE LAB PT(LOINC) 9.0-14.5 seconds Protime 13.5 Result Comment: Effective 08/23/07, Protime results may be affected by some antibiotics (i.e. Ciprofloxacin, Azithromycin, Bactrim) which may potentiate the action of oral anticoagulants, with further increases in Protime/INR. LAB INR(LOINC) ratio PT International Ratio 1.2 Result Comment: The [employer] (CHEST, 1992, 102:312S-25S) recommended therapeutic range for oral anticoagulant therapy is: LOW RISK: Prophylaxis of venous thrombosis INR: 2.0-3.0 Treatment of pulmonary embolism 2.0-3.0 Prevention of systemic embolism 2.0-3.0 HIGH RISK: Mechanical prosthetic valves 2.5-3.5 Performed By: #### PRO #### [facility] [address] [place] [address] 12 LEAD ELECTROCARDIOGRAM Observed: 09/13/2017 Status: F Source: [place] 4:07 PM [facility] REPOSITORY [facility] Cardiovascular Services [address] [place] [address] 12 Lead EKG 09/02/17 1338 MR#: [id number] Acct: [id number] Name: ANALILIA TALLEY Rep #: [id number] : 1960 57 From: Jacky Bey MD Attending Dr: Kayla Kim Status: DIS IN Ordering Dr: Kayla Kim MD Date: 09/02/17 Location: SD3 Sex: M C Admitted: 09/02/17 Test Reason : Blood Pressure : / mmHG Vent. Rate : 060 BPM Atrial Rate : 060 BPM P-R Int : 166 ms QRS Dur : 132 ms QT Int : 470 ms P-R-T Axes : 072 000 246 degrees QTc Int : 470 ms Atrial-paced rhythm Right bundle branch block T wave abnormality, consider lateral ischemia Abnormal ECG Confirmed by MIMI FRANCISCO, JACKY ([id number]), waiter/waitress tourist class BENJAMÍN JAVIER ([id number]) on 09/13/2017 4:06:28 PM Referred By: TERRENCE Confirmed By:JACKY BEY MD 09/13/17 1606 Date Jacky Bey MD CC: No Primary Care Physician; Kayla Kim Signed EMERGENCY DEPARTMENT Observed: 09/06/2017 Status: F Source: [place] SUMMARY 12:26 AM [facility] Medical Records Department [address] [place] [address] Emergency Department Summary 09/05/172053 MR#: [id number] Acct: [id number] Name: ANALILIA TALLEY Rep #: [id number] : 1960 57 From: Ezra Gonzalez DO PCP: Care Physician, No Primary Status: DEP ER - ER Visit Summary Date of Service: 09/05/17 Chief Complaint: Intoxication History of Present Illness: The patient is a 57 M who was seen in the emergency department over the weekend and admitted for alcohol withdrawal. Patient was discharged from the hospital today at approximately 11 AM. Apparently family dropped him off at home and told him they would pick him up for dinner around 7. When they return to pick him up he was found unresponsive. He was able to wake up and be aggressive/combative with superintendent recreation's department and paramedics. He told them he had been drinking today and did some heroin. Physical Examination: Afebrile vital signs are stable Gen: Well-nourished well-developed unkempt Head: Normocephalic atraumatic Eyes: Perrl EOMI ENT: TMs clear no rhinorrhea moist mucous membranes Neck: Supple no lymphadenopathy no JVD nontender CVS: Regular rate rhythm no murmurs normal S1-S2 Respiratory: No distress clear to auscultation bilaterally chest nontender Abdomen: Soft nontender nondistended normal bowel sounds no masses Back: Nontender Extremity: Nontender no edema Skin: Normal color no rash Neuro: alert speaking intelligibly. He refuses to answer orientation questions Psych: Angry and aggressive Emergency Department Course and Treatment: Accu-Chek was obtained. Patient will be allowed to sleep until he is clinically sober or he can find a ride home. Once that person is found the patient will need to have somebody stay with him tonight. Patient was advised not to drink anymore alcohol or do drugs. Impression: 1. Alcohol intoxication 2. Heroin abuse This note was generated with [employer] dictation software. It may contain incorrect words, spelling, and punctuation that were not noted in review of the chart prior to signing ED Disposition - Plan for ED Patient: Disposition: Home or Assisted Living Chief Complaint: Overdose Instructions: ED Alcohol Intoxication, ED Narcotic Abuse Referrals: Vj Mckeon MD [STAFF PHYSICIAN] - As Needed Additional Instructions: You will need to have somebody stay with you tonight who is sober that can watch you. Do not drink or do drugs they will kill you. What to do if you have Problems For any increased pain, shortness of breath, bleeding, nausea or vomiting, chest pain, or any unexpected problems, contact your Primary Care Provider. Call [facility] ([phone]) or report to the closest Emergency Room. Call 911 if necessary. 09/06/17 0026 <Electronically signed by Ezra Gonzalez DO> Date Ezra Gonzalez DO Cosigner Signature (If Indicated): Date CC: No Primary Care Physician BEDSIDE GLUCOSE Collected: 09/05/2017 Status: F Source: [place] 8:25 PM [facility] REPOSITORY TYPE CODE TESTS RESULT OUT OF REFERENCE UNITS RANGE LAB L501.080 70-110 mg/dL High BEDSIDE GLU 396 Result Comment: MANAGEMENT OF PATIENT CARE PER NURSING PROTOCOL Performed By: #### L501.080 #### [facility] Point of Care [address] [facility] [place] [address] DISCHARGE SUMMARY Observed: 09/05/2017 Status: F Source: [place] 11:13 AM [facility] REPOSITORY [facility] Medical Records Department [address] [facility] [place] [address] Discharge Summary 09/05/17 1107 MR#: [id number] Acct: [id number] Name: ANALILIA TALLEY Antonio Rep #: [id number] : 1960 57 From: Kayla Kim MD PCP: Care Physician, No Primary Status: DIS IN Y Location: [place] [address]-1 Discharge Date and Diagnosis Date of Admission: 09/02/17 Date of Discharge: 09/05/17 - Primary Discharge Diagnosis Acute alcohol withdrawal. 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 Today, he feels much better, more comfortable. Anxiety and restlessness significantly improved. Vital signs are stable. - Physical Exam General: Alert, Oriented x3, Cooperative, No apparent distress. HEENT: Atraumatic, PERRLA, EOMI. Neck: Supple, No JVD, Negative Carotid Bruits, Trachea Midline, Thyroid Normal. Lungs: Clear to auscultation, Normal air movement, No rhonchi, No wheeze, No rales. Cardiovascular: Regular rate, Regular Rhythm, Normal S1, Normal S2, PMI Normal, systolic murmur. Abdomen: Bowel Sounds Present, Soft, Non Tender, Non-Distended, No Hepato-splenomegaly. Extremities: No clubbing, No cyanosis, No edema Skin: No rashes, No breakdown Neurological: Neuro grossly intact Hospital course: The patient is a 57 year old M presented to the emergency room the day before admission and he requested to be admitted for alcohol detoxification. Initially, he was found to be an alcohol intoxication and his blood alcohol level was 281. He was observed in the emergency department for more than 14 hours. [facility] was requested to see the patient and they were waiting on admission preauthorization for alcohol detoxification. While patient in the ED, he developed an anxiety, restlessness and he became tremulous and his blood pressure was highly elevated. He went into acute alcohol withdrawal and he was admitted for medical stabilization. His blood pressure was slightly elevated but he was not tachycardic but he also has been on high doses of metoprolol. His routine blood work was unremarkable. His urine drug screen was negative. He was treated with thiamine and folic acid supplement, multivitamins, CIWA protocol with as needed Ativan. His potassium was slightly low and was replaced and corrected. With treatment, patient symptoms improved, became less shaky and discuss and he reported good sleep at night. Patient discharged home in a stable medical condition, plan is to follow-up with [facility] as outpatient, discharged on folic acid and thiamine supplement, counseled about his alcohol drinking behavior, continued on his chronic home medications without any changes, recommended follow-up with PCP in 1 week. Discharge Activity: Return to Normal Activity Weight Bearing Status: Full weight bearing Call your doctor if you observe: Fever of 101 or Higher, Shortness of breath, Dizziness, Fainting spells, Chest pain, Increased palpitations (irregular heartbeat), Uncontrolled pain Home Medications: Medications to take at Discharge Insulin Detemir [Levemir] 25 units SC BID 06/20/16 Lisinopril [Zestril] 20 mg PO DAILY 06/20/16 Metoprolol Tartrate 100 mg PO BID 06/20/16 Acetaminophen [Tylenol Tablet] 500 mg PO Q6H PRN PRN tablet 04/02/17 Aspirin [Aspirin, Baby] 81 mg PO DAILY@0800 04/02/17 Atorvastatin Calcium [Lipitor] 40 mg PO QHS 04/02/17 Fluoxetine HCl [Prozac] 40 mg PO DAILY 04/02/17 Naltrexone Microspheres [Vivitrol] 1 injectable IM QMONTH 09/02/17 Folic Acid 1 mg PO DAILYCM #30 tab 09/05/17 Thiamine Hydrochloride [Vitamin B1] 100 mg PO DAILYCM #30 tab 09/05/17 Following Prescrptions Were Given to Patient: Folic Acid 1 mg PO DAILYCM #30 tab Thiamine Hydrochloride [Vitamin B1] 100 mg PO DAILYCM #30 tab Primary Care Physician: Care Physician,No Primary [Primary Care Provider] - Please follow up with your Primary Care Physician in: 1 week. Patient Instructions: The Impact of Alcoholism, Alcohol Addiction, Recovering from Addiction, ED Alcohol Abuse Disposition: Home Minutes spent on discharge:: 26 Patient Condition:: Stable Medical Necessity - Tobacco Use Smoking Status: Current every day smoker Tobacco Use: Cigarettes Meaningful Use Info Meaningful Use Diagnoses (Choose all that apply): None applicable Code Visit Inpatient E AND M: 59842 Disch Hosp 09/05/17 1113 <Electronically signed by Kayla Kim MD> Date Kayla Kim MD Cosigner Signature (if applicable): Date CC: No Primary Care Physician; Kayla Kim; PCP Signed DISCHARGE INSTRUCTION Observed: 09/05/2017 Status: F Source: [place] 8:46 AM [facility] REPOSITORY [facility] Medical Records Department [address] [place] [address] Instructions for Home/Discharge Instructions 09/05/17 0844 MR#: [id number] Acct: [id number] Name: ANALILIA TALLEY Rep #: [id number] : 1960 57 From: Kayla Kim MD PCP: Care Physician, No Primary Status: ADM IN You will use the following diet at home:: Calorie/Carbohydrate Controlled (specify 1200, 1400, etc) - 1800 rodriguez, Cardiac Your food should be the consistency of: Regular Discharge Activity: Return to Normal Activity Weight Bearing Status: Full weight bearing Call your doctor if you observe: Fever of 101 or Higher, Shortness of breath, Dizziness, Fainting spells, Chest pain, Increased palpitations (irregular heartbeat), Uncontrolled pain Instructions: ED Alcohol Abuse, The Impact of Alcoholism, Alcohol Addiction, Recovering from Addiction Allergies/Adverse Reactions: Allergies No Known Allergies Allergy (Verified 08/30/17 19:42) Medications to take at Discharge Insulin Detemir [Levemir] 25 units SC BID 06/20/16 Lisinopril [Zestril] 20 mg PO DAILY 06/20/16 Metoprolol Tartrate 100 mg PO BID 06/20/16 Acetaminophen [Tylenol Tablet] 500 mg PO Q6H PRN PRN tablet 04/02/17 Aspirin [Aspirin, Baby] 81 mg PO DAILY@0800 04/02/17 Atorvastatin Calcium [Lipitor] 40 mg PO QHS 04/02/17 Fluoxetine HCl [Prozac] 40 mg PO DAILY 04/02/17 Naltrexone Microspheres [Vivitrol] 1 injectable IM QMONTH 09/02/17 Folic Acid 1 mg PO DAILYCM #30 tab 09/05/17 Thiamine Hydrochloride [Vitamin B1] 100 mg PO DAILYCM #30 tab 09/05/17 The following prescriptions were given: Folic Acid 1 mg PO DAILYCM #30 tab Thiamine Hydrochloride [Vitamin B1] 100 mg PO DAILYCM #30 tab Primary Care Physician: Care Physician,No Primary [Primary Care Provider] - Please follow up with your Primary Care Physician in: 1 week. Test Results: Test results from this visit will be discussed in further detail at your follow-up appointment, if applicable. 09/05/17 0846 <Electronically signed by Kayla Kim MD> Date Kayla Kim MD CC: No Primary Care Physician BEDSIDE GLUCOSE Collected: 09/05/2017 Status: F Source: [place] 6:43 AM [facility] REPOSITORY TYPE CODE TESTS RESULT OUT OF REFERENCE UNITS RANGE LAB L501.080 70-110 mg/dL High BEDSIDE GLU 174 Result Comment: MANAGEMENT OF PATIENT CARE PER NURSING PROTOCOL Performed By: #### L501.080 #### [facility] Point of Care [address] [place] [address] BEDSIDE GLUCOSE Collected: 09/04/2017 Status: F Source: [place] 10:00 PM [facility] REPOSITORY TYPE CODE TESTS RESULT OUT OF REFERENCE UNITS RANGE LAB L501.080 70-110 mg/dL High BEDSIDE GLU 297 Result Comment: MANAGEMENT OF PATIENT CARE PER NURSING PROTOCOL Performed By: #### L501.080 #### [facility] Point of Care [address] [place] [address] BEDSIDE GLUCOSE Collected: 09/04/2017 Status: F Source: [place] 3:45 PM [facility] REPOSITORY TYPE CODE TESTS RESULT OUT OF REFERENCE UNITS RANGE LAB L501.080 70-110 mg/dL High BEDSIDE GLU 193 Result Comment: MANAGEMENT OF PATIENT CARE PER NURSING PROTOCOL Performed By: #### L501.080 #### [facility] Point of Care [address] [place] [address] BEDSIDE GLUCOSE Collected: 09/04/2017 Status: F Source: [place] 11:19 AM [facility] REPOSITORY TYPE CODE TESTS RESULT OUT OF REFERENCE UNITS RANGE LAB L501.080 70-110 mg/dL High BEDSIDE GLU 128 Result Comment: MANAGEMENT OF PATIENT CARE PER NURSING PROTOCOL Performed By: #### L501.080 #### [facility] Point of Care [address] [place] [address] BEDSIDE GLUCOSE Collected: 09/04/2017 Status: F Source: [place] 6:50 AM [facility] REPOSITORY TYPE CODE TESTS RESULT OUT OF REFERENCE UNITS RANGE LAB L501.080 70-110 mg/dL High BEDSIDE GLU 192 Result Comment: MANAGEMENT OF PATIENT CARE PER NURSING PROTOCOL Performed By: #### L501.080 #### [facility] Point of Care [address] [place] [address] BEDSIDE GLUCOSE Collected: 09/03/2017 Status: F Source: [place] 8:53 PM [facility] REPOSITORY TYPE CODE TESTS RESULT OUT OF REFERENCE UNITS RANGE LAB L501.080 70-110 mg/dL High BEDSIDE GLU 243 Result Comment: MANAGEMENT OF PATIENT CARE PER NURSING PROTOCOL Performed By: #### L501.080 #### [facility] Point of Care [address] [place] [address] BEDSIDE GLUCOSE Collected: 09/03/2017 Status: F Source: [place] 4:45 PM [facility] REPOSITORY TYPE CODE TESTS RESULT OUT OF REFERENCE UNITS RANGE LAB L501.080 70-110 mg/dL High BEDSIDE GLU 146 Result Comment: MANAGEMENT OF PATIENT CARE PER NURSING PROTOCOL Performed By: #### L501.080 #### [facility] Point of Care [address] [place] [address] BEDSIDE GLUCOSE Collected: 09/03/2017 Status: F Source: [place] 11:19 AM [facility] REPOSITORY TYPE CODE TESTS RESULT OUT OF REFERENCE UNITS RANGE LAB L501.080 70-110 mg/dL High BEDSIDE GLU 163 Result Comment: MANAGEMENT OF PATIENT CARE PER NURSING PROTOCOL Performed By: #### L501.080 #### [facility] Point of Care [address] [place] [address] BEDSIDE GLUCOSE Collected: 09/03/2017 Status: F Source: [place] 6:47 AM [facility] REPOSITORY TYPE CODE TESTS RESULT OUT OF REFERENCE UNITS RANGE LAB L501.080 70-110 mg/dL High BEDSIDE GLU 125 Result Comment: MANAGEMENT OF PATIENT CARE PER NURSING PROTOCOL Performed By: #### L501.080 #### [facility] Point of Care [address] [place] [address] BEDSIDE GLUCOSE Collected: 09/03/2017 Status: F Source: [place] 5:01 AM [facility] REPOSITORY TYPE CODE TESTS RESULT OUT OF RANGE REFERENCE UNITS LAB L501.080 70-110 mg/dL Normal BEDSIDE GLU 105 Result Comment: MANAGEMENT OF PATIENT CARE PER NURSING PROTOCOL Performed By: #### L501.080 #### [facility] Point of Care [address] [place] [address] BEDSIDE GLUCOSE Collected: 09/03/2017 Status: F Source: [place] 4:22 AM [facility] REPOSITORY TYPE CODE TESTS RESULT OUT OF REFERENCE UNITS RANGE LAB L501.080 70-110 mg/dL Low BEDSIDE GLU 66 Result Comment: MANAGEMENT OF PATIENT CARE PER NURSING PROTOCOL Performed By: #### L501.080 #### [facility] Point of Care [address] [place] [address] BEDSIDE GLUCOSE Collected: 09/02/2017 Status: F Source: [place] 10:21 PM [facility] REPOSITORY TYPE CODE TESTS RESULT OUT OF REFERENCE UNITS RANGE LAB L501.080 70-110 mg/dL High BEDSIDE GLU 346 Result Comment: MANAGEMENT OF PATIENT CARE PER NURSING PROTOCOL Performed By: #### L501.080 #### [facility] Point of Care [address] [place] [address] BEDSIDE GLUCOSE Collected: 09/02/2017 Status: F Source: [place] 4:31 PM [facility] REPOSITORY TYPE CODE TESTS RESULT OUT OF REFERENCE UNITS RANGE LAB L501.080 70-110 mg/dL High BEDSIDE GLU 322 Result Comment: MANAGEMENT OF PATIENT CARE PER NURSING PROTOCOL Performed By: #### L501.080 #### [facility] Point of Care [address] [place] [address] BEDSIDE GLUCOSE Collected: 09/02/2017 Status: F Source: [place] 12:09 PM [facility] REPOSITORY TYPE CODE TESTS RESULT OUT OF REFERENCE UNITS RANGE LAB L501.080 70-110 mg/dL High BEDSIDE GLU 385 Result Comment: MANAGEMENT OF PATIENT CARE PER NURSING PROTOCOL Performed By: #### L501.080 #### [facility] Point of Care [address] [place] [address] HISTORY AND PHYSICAL Observed: 09/02/2017 Status: F Source: [place] EXAM 11:44 AM [facility] Medical Records Department [place] [address] History and Physical 09/02/17 1108 MR#: [id number] Acct: [id number] Name: SAURAVANALILIA LANDAVERDE Antonio Rep #: [id number] : 1960 57 From: Kayla Kim MD PCP: Care Physician, No Primary Status: ADM IN Y Location: MS3 BR013-6 Problem List (1) Pacemaker Status: Chronic (2) Sick sinus syndrome Status: Chronic (3) Diabetes mellitus, type II Status: Chronic Qualifiers: (4) HTN (hypertension) Status: Chronic Qualifiers: (5) Tobacco use Status: Chronic (6) Aortic aneurysm Status: Chronic (7) H/O aortic valve replacement Status: Chronic History of Present Illness Date of Admission: 09/02/17 Chief Complaint: Alcohol withdrawal The patient is a 57 year old M with past medical history as mentioned above who was presented to the emergency room yesterday evening because of alcohol intoxication. At this time, patient is alert and oriented 3. He mentioned that his last drink was yesterday just before he came in. He has been drinking 1/5 of vodka every day for the last couple of weeks. Recently, he was started on Vivitrol injections monthly by Dr. Muller according to the patient. He continued to drink alcohol every day. When he was admitted yesterday, he was intoxicated, blood alcohol level was 281. When patient presented to the ED, requested admission for detoxification but he is known of changing his mind once he is sober. He was observed until clinically stabilized and he did continue to state that he wants to be admitted for alcohol detoxification. He was evaluated by a new patient this morning and patient will need insurance preauthorization for admission for alcohol detoxification. While patient waiting, he became increasingly hypertensive, tremulous and restless and complained of nausea. At this time, patient mentioned that he started having crawling sensation on his entire body, felt anxious, restless and complained of nausea. His blood pressure has been increasingly elevated. He is not tachycardic but he has been on high dose of metoprolol. He has a history of type 2 diabetes mellitus, has been on Levemir insulin twice daily and apparently, his blood sugar has not been well controlled. Patient mentioned that his blood sugars usually in the 400s. His hemoglobin A1c was 11 back in Jun, 2016. He has a history of congenital aortic aneurysm status post repair 2. He has a history of aortic valve replacement with bioprosthetic valve and not sure why he had that valve replacement. He has a history of hypertension he has been on lisinopril and metoprolol. At this time, his blood pressure is elevated, afebrile, no tachycardia, pulse ox is maintained on room air. His routine blood work is remarkable for potassium of 3.3, otherwise normal. His urine drug screen was negative. He received 2 doses of IV Ativan this morning in the ED. He is being admitted for alcohol withdrawal for stabilization. 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 Psychiatric History: No pertinent psych hx Smoking Status: Current every day smoker Alcohol: Heavy Drugs: None - *Family History Maternal History Items: Dementia Paternal History Items: Heart Disease Review of Systems Constitutional: Denies: Anorexia, Chills, Fever, Weakness Eyes: Denies: Blurred vision, Double vision, Drainage, Redness HEENT: Denies: Difficulty Hearing, Ear Pain, Eye Pain, Nasal Congestion, Sore Throat Cardiovascular: Denies: Chest Pain, Chest Tightness, Heaviness, Light Headedness, Palpitations, Syncope Respiratory: Denies: Cough, Pleuritic Pain, Shortness of Breath, Sputum production, Wheezing Gastrointestinal: Reports: Nausea. Denies: Abdominal Pain, Constipation, Diarrhea, Vomiting Genitourinary: Denies: Dysuria, Frequency, Hematuria Musculoskeletal: Reports: Muscle pain. Denies: Arm Pain, Back Pain, Foot Pain Skin: Denies: Dryness, Rash Neurological: Denies: Balance problems, Double vision, Change in Speech, Slurred speech, Confusion, Focal weakness, Headaches, Numbness, Tingling Psychiatric: Reports: Anxiety. Denies: Depression Endocrine: Denies: Change in Body Habitus, Polydipsia VTE Information - Inpt Only VTE Present on Admission: No VTE Mechan Device Prophylaxis: None VTE Pharm Prophylaxis ordered?: No - Physical Exam General: Alert, Oriented x3, Cooperative, - HEENT: Atraumatic, PERRLA, EOMI, Normocephalic Oral: Moist Mucosa, No Gingival or Mucosal Lesions/ Ulcerations Neck: Supple, No JVD, Negative Carotid Bruits, Trachea Midline, Thyroid Normal Size and Texture Lungs: Clear to auscultation, Normal air movement, No rhonchi, No wheeze, No rales, Diminished Cardiovascular: Regular rate, Regular Rhythm, Normal S1, Normal S2, PMI Normal Abdomen: Bowel Sounds Present, Soft, Non Tender, Non-Distended, No Hepato-splenomegaly Extremities: No clubbing, No cyanosis, No edema Skin: No rashes, No breakdown Lymphatic: No Cervical, Supraclavicular, or Inguinal Adenopathy Neurological: Cranial nerves II-XII grossly intact, Motor Exam 5/5 strength throughout Psych/Mental Status: Normal Affect, Appropriate, Alert and oriented to time, place, person, mood and affect Vital Signs Temp Pulse Resp BP Pulse Ox 97.8 F 60 14 156/89 H 96 09/01/17 19:02 09/02/17 11:01 09/02/17 11:01 09/02/17 11:01 09/02/17 11:01 Oxygen Flow Rate (L/min) 2 Oxygen Delivery Method Nasal Cannula Weight: 163 lb 2.273 oz Body Mass Index (BMI) 22.7 Finger Stick Blood Glucose 125 Laboratory Tests Past 24 Hrs WBC 6.3 WBC RBC Hgb Hct MCV MCH POC Glucose POC Glucose 125 H Assessment/Plan This is a 57 years old male patient presented to the emergency room yesterday because of alcohol intoxication, requested admission for alcohol detoxification, found to have blood alcohol level of 281 and because he is known to change his mind in terms of admission for detoxification, he was observed until he became sober and again stated that he wanted to be admitted for detoxification. While he is awaiting for insurance preauthorization, patient became anxious, restless, tremulous and his blood pressure went up to 190 systolic, found to be in acute withdrawal and he is being admitted for stabilization. #1 acute alcohol withdrawal: At this time, he is hypertensive but not tachycardic because he has been on high doses of metoprolol. He received 2 doses of IV Ativan in the ER, felt better but still little anxious and restless. Routine blood work reviewed, remarkable for mild hypokalemia, otherwise normal. Urine drug screen is negative. Plan: Admit to [facility] floor, cardiac monitoring, start folic acid and thiamine supplement, multivitamins, as needed Ativan, as needed Vistaril, methocarbamol and and Bentyl, routine EKG. #2 hypokalemia: Replace potassium with oral K Dur. #3 type 2 diabetes mellitus: According to the patient, his blood sugar is not well controlled. Plan for ADA diet, Accu-Cheks, insulin sliding scale, continue on Levemir insulin twice daily. #4 history of congenital aortic aneurysm: Status post repair 2, stable. #5 status post aortic valve replacement with bioprosthetic valve: Stable, no acute issues. #6 sick sinus syndrome status post pacemaker: Heart rate stable, plan to continue metoprolol, routine EKG. #7 hypertension: Blood pressure is elevated at this time. Plan to continue lisinopril and metoprolol. #8 alcohol abuse: Plan as above. #9 DVT prophylaxis: Low risk patient, ambulate. This note was generated with [employer] dictation software. It may contain incorrect words, spelling, and punctuation that were not noted in checking the note before signing. Code Visit Inpatient E AND M: [id number] Init Hosp L3 09/02/17 1144 <Electronically signed by Kayla Kim MD> Date Kayla Kim MD Cosigner Signature: Date (if applicable) CC: No Primary Care Physician; Kayla Kim Signed EMERGENCY DEPARTMENT Observed: 09/02/2017 Status: F Source: [place] SUMMARY 10:53 AM [facility] REPOSITORY [facility] Medical Records Department [address] [place] [address] Emergency Department Summary 09/01/17 2252 MR#: [id number] Acct: [id number] Name: ANALILIA TALLEY Rep #: [id number] : 1960 57 From: Francisco Acosta MD PCP: Care Physician, No Primary Status: REG ER ADDENDUM by Brant Villanueva MD on 09/02/17 at 1053 Patient was turned over to the night physician, Dr. Traore. Patient was then turned over to me. Per signout from Dr. Traore the patient had requested alcohol detox from Dr. Acosta, however supposedly has a history of then changing his mind once he is sober. Therefore he was observed until clinically sober and reassessed at which point he did continue to state that he wanted alcohol detox. He was monitored here until [facility] was able to evaluate him here in the emergency department. They did feel that he was exhibiting moderate signs of withdrawal and would meet criteria for detox. However we have been waiting for insurance preauthorization. During this time. The patient became increasingly hypertensive and tremulous and is complaining of nausea. I do believe he is showing signs of alcohol withdrawal. He has been ordered IV Ativan. At this point I feel he needs admission regardless. Patient discussed with the hospitalist who will evaluate the patient here. Date Brant Villanueva MD cc: No Primary Care Physician * Signed - ER Visit Summary Date of Service: 09/01/17 Chief Complaint: Alcohol intoxication History of Present Illness: The patient is a 57 M who presents with alcohol intoxication. He has been drinking all day today. He has a history of this in the past. He was found in his yard unresponsive by family members. They called EMS. Patient was becoming slightly belligerent with EMS but he was able to be redirected by voice. Physical Examination: Vital signs reviewed. HEENT exam unremarkable. Heart is regular rate and rhythm without murmurs. Lungs are clear to auscultation. Abdomen is soft and nontender. Extremities reveal no edema. Skin exam normal. Neurologic exam normal. She is intoxicated Test Results: Alcohol level of 281 Emergency Department Course and Treatment: Patient had to be put in leather restraints because he was trying to climb out of bed and could hurt himself or staff. He was able to be slowly removed from the restraints. He will metabolizes alcohol then will be reevaluated and discharged home Treatment Plan: [] Disposition: Discharge Impression: Alcohol intoxication This note was generated with [employer] dictation software. It may contain incorrect words, spelling, and punctuation that were not noted in review of the chart prior to signing ED Disposition - Plan for ED Patient: Chief Complaint: Substance Abuse Referrals: Care Physician,No Primary [Primary Care Provider] - What to do if you have Problems For any increased pain, shortness of breath, bleeding, nausea or vomiting, chest pain, or any unexpected problems, contact your Primary Care Provider. Call [facility] ([phone]) or report to the closest Emergency Room. Call 911 if necessary. 09/01/17 2208 <Electronically signed by Francisco Acosta MD> Date Francisco Acosta MD Cosigner Signature (If Indicated): Date CC: No Primary Care Physician URINE DRUG SCREEN Collected: 09/02/2017 Status: F Source: [place] (VISTA) 8:00 AM [facility] REPOSITORY TYPE CODE TESTS RESULT OUT OF RANGE REFERENCE UNITS LAB L505.0075 TO BE Normal CONFIRMED Result Comment: CONFIRMATORY TESTING FOR ALL POSITIVE URINE DRUG SCREEN RESULTS WILL ONLY BE SENT OUT UPON PHYSICIAN ORDER. VISTA Urine Drug Screen methods provide only preliminary analytical test results. A more specific alternate chemical method must be used in order to obtain a confirmed analytical result. Gas chromatography/mass spectrometery (GC/MS) is the preferred confirmatory method. Clinical consideration and professional judgement should be applied to any drug of abuse test result, particularly when preliminary positive results are used. URINE TCA TESTING MUST BE ORDERED SEPARATELY. USE TEST MNEMONIC: [facility] LAB L505.5005 VISTA UDS PH 6 Normal LAB L505.5015 <1000 ng/mL AMPHETAMINES Normal NEGATIVE LAB L505.5025 < 200 ng/mL BARBITIURATES Normal NEGATIVE LAB L505.5035 < 200 ng/mL BENZODIAZIPINE Normal NEGATIVE LAB L505.5045 < 300 ng/mL COCAINE Normal NEGATIVE LAB L505.5055 < 500 ng/mL ECSTACY Normal NEGATIVE LAB L505.5065 < 300 ng/mL METHADONE Normal NEGATIVE LAB L505.5075 < 300 ng/mL OPIATES Normal NEGATIVE LAB L505.5085 < 25 ng/mL PCP Normal NEGATIVE LAB L505.5095 < 50 ng/mL THC Normal NEGATIVE Performed By: #### L505.5000 #### [facility] [place], [address] CBC W/DIFF, AUTOMATED Collected: 09/02/2017 Status: F Source: [place] 7:15 AM [facility] REPOSITORY TYPE CODE TESTS RESULT OUT OF RANGE REFERENCE UNITS LAB L100.1000 4.4-11.0 K/mm3 Normal WBC 6.3 LAB L100.1200 4.6-6.2 M/mm3 Normal RBC 4.67 LAB L100.1300 13.0-16.5 g/dl Normal HGB 14.7 LAB L100.1400 40-54 % Normal HCT 42.1 LAB L100.1500 80-94 fL Normal MCV 90.1 LAB L100.1600 27.0-32.0 pg Normal MCH 31.5 LAB L100.1700 32-36 g/gl Normal MCHC 34.9 LAB L100.1810 11.6-14.6 % Normal RDW CV 13.9 LAB L100.1820 35.1-43.9 fl High RDW SD 45.8 LAB L100.1900 150-450 K/mm3 Normal PLT 233 LAB L100.2000 6.2-12.0 fl Normal MPV 10.4 LAB L100.2100 47-70 % Normal NEUT% 60.8 LAB L100.2200 19-41 % Normal LY% 26.8 LAB L100.2300 0-10 % Normal MONO% 9.1 LAB L100.2400 0-5 % Normal EO% 2.1 LAB L100.2500 0-1 % Normal BASO% 1.0 LAB L100.2550 0.0-0.9 % Normal IM GRAN % 0.200 Result Comment: IG% - Immature Granulocytes (promyelocytes, myelocytes and metamyelocytes) > 1% indicates that a LEFT SHIFT is Present. LAB L100.2620 2.0-7.7 X10 3/uL Normal Absolute Neut 3.8 LAB L100.2720 0.83-4.51 X10 3/ul Normal Absolute Lymph 1.68 Performed By: #### L100.0100 #### [facility] [address] [place], [address] BASIC METABOLIC Collected: 09/02/2017 Status: F Source: [place] PROFILE (BMP) 7:15 AM [facility] REPOSITORY TYPE CODE TESTS RESULT OUT OF RANGE REFERENCE UNITS LAB L501.0100 74-106 mg/dL High GLU 225 Result Comment: Glucose result greater than or equal to 200 mg/dL suggests DIABETES MELLITUS per A.D.A. criteria. Please note revised GLUCOSE reference range effective 2017. LAB L501.1000 7-18 mg/dL Normal BUN 12 LAB L501.1100 0.70-1.30 mg/dL Normal CREAT,SERUM 1.09 Result Comment: The validity of the calculated GFR AND GFRAA in patients over 70 years has not been determined. Clinical correlation is essential. LAB L501.1110 >60 mL/min Normal EST GFR 75 Result Comment: Non- GFR Calc LAB L501.1115 >60 mL/min Normal EST GFR - AA 90 Result Comment: GFR Calc LAB L501.1255 ml/min Normal Estimated CRCL 80.15 LAB L501.1300 10-20 RATIO Normal BUN/CRE 11.0 LAB L501.2200 8.5-10 mg/dL Normal .1 CA 8.9 LAB L501.5300 136-14 mmol/L Normal 5 NA 142 LAB L501.5600 3.5-5. mmol/L Low 1 K 3.3 LAB L501.5900 98-107 mmol/L Normal CL 102 LAB L501.6100 21.0-3 mmol/L Normal 2.0 CO2 32.0 LAB L501.6200 5-15 Normal GAP 8 Performed By: #### L500.2500 #### [facility] [address] [place], [address] DISCHARGE INSTRUCTION Observed: 09/01/2017 Status: F Source: [place] 10:54 PM [facility] REPOSITORY [facility] Medical Records Department [address] [place] [address] Discharge Instruction 09/01/172252 MR#: [id number] Acct: [id number] Name: ANALILIA TALLEY Rep #: [id number] : 1960 57 From: Francisco Acosta MD PCP: [place] Physician, No Primary Status: REG ER ED Disposition - Plan for ED Patient: Disposition: Home or Assisted Living Chief Complaint: Substance Abuse Instructions: ED Alcohol Abuse Referrals: Care Physician,No Primary [Primary Care Provider] - What to do if you have Problems For any increased pain, shortness of breath, bleeding, nausea or vomiting, chest pain, or any unexpected problems, contact your Primary Care Provider. Call [facility] ([phone]) or report to the closest Emergency Room. Call 911 if necessary. 09/01/172253 <Electronically signed by Francisco Acosta MD> Date Francisco Acosta MD Cosigner Signature (If Indicated): Date CC: No Primary Care Physician BEDSIDE GLUCOSE Collected: 09/01/2017 Status: F Source: [place] 8:46 PM [facility] REPOSITORY TYPE CODE TESTS RESULT OUT OF REFERENCE UNITS RANGE LAB L501.080 70-110 mg/dL High BEDSIDE GLU 125 Result Comment: MANAGEMENT OF PATIENT CARE PER NURSING PROTOCOL Performed By: #### L501.080 #### [facility] Point of Care [address] [place] [address] ALCOHOL, BLOOD Collected: 09/01/2017 Status: F Source: [place] (MEDICAL)-SERUM 8:40 PM [facility] REPOSITORY TYPE CODE TESTS RESULT OUT OF RANGE REFERENCE UNITS LAB L501.9100 mg/dL Normal SERUM 281.0 ETOH Result Comment: The serum:whole blood ethanol ratio is approximately 1.14 and varies slightly with hematocrit. Medical Alcohol reference interval and critical value in non-tolerant individuals; 50 - 100 Impairment 100 Intoxication 100 - 250 Severe Poisoning 250 - 400 Deep/possible fatal coma Performed By: #### L501.9100 #### [facility] [address] [place], [address] BEDSIDE GLUCOSE Collected: 08/31/2017 Status: F Source: [place] 5:37 AM [facility] REPOSITORY TYPE CODE TESTS RESULT OUT OF REFERENCE UNITS RANGE LAB L501.080 70-110 mg/dL High BEDSIDE GLU 316 Result Comment: MANAGEMENT OF PATIENT CARE PER NURSING PROTOCOL Performed By: #### L501.080 #### [facility] Point of [facility] [address] [place] [address] EMERGENCY DEPARTMENT Observed: 08/30/2017 Status: F Source: [place] SUMMARY 11:53 PM [facility] REPOSITORY [facility] Medical Records Department [address] [place] [address] Emergency Department Summary 08/30/17 2349 MR#: [id number] Acct: [id number] Name: ANALILIA TALLEY Rep #: [id number] : 1960 57 From: Brant Villanueva MD PCP: Donna Pedroza MD Status: DEP ER - ER Visit Summary Date of Service: 08/30/17 Chief Complaint: Alcohol intoxication History of Present Illness: The patient is a 57 M who presents with alcohol intoxication. He is well known to this department. Initially history was very difficult to obtain as the patient was uncooperative and combative. Apparently he was found passed out on his porch intoxicated. Neighbors had called EMS. The patient became belligerent and violent when they attempted to evaluate him. Therefore he was brought here to the emergency department. He was combative towards nursing staff. Initially I was unable to obtain any further history. Physical Examination: Afebrile vitals stable Moist mucous membranes Heart regular rate and rhythm Lungs are clear to auscultation Abdomen soft Alert no focal or lateralizing neurological deficits Combative, agitated Test Results: Not indicated Emergency Department Course and Treatment: When I entered the room the patient was demanding to know how his father was doing. I saw his father in the emergency department last night and the patient was a visitor. I attempted to explain that he had been admitted and I am no longer caring for him so I not know any details of his care currently. The patient became angry at this and would refuse to answer any further questions. Given that he was violent and aggressive towards staff he had been placed in four-point leather restraints. He was monitored here in the emergency department. On reevaluation 3 hours later the patient is calm and cooperative. He apologized. He does admit to alcohol intoxication. Currently he has no complaints. He does believe he can call for a ride home. Patient will be discharged with a sober ride or observed here until clinically sober able to walk on his own. Treatment Plan: [] Disposition: Discharge Impression: Acute alcohol intoxication This note was generated with [employer] dictation software. It may contain incorrect words, spelling, and punctuation that were not noted in review of the chart prior to signing ED Disposition - Plan for ED Patient: Disposition: [facility] Chief Complaint: ETOH Intox Referrals: Donna Pedroza MD [Primary Care Provider] - What to do if you have Problems For any increased pain, shortness of breath, bleeding, nausea or vomiting, chest pain, or any unexpected problems, contact your Primary Care Provider. Call [facility] ([phone]) or report to the closest Emergency Room. Call 911 if necessary. 08/30/172352 <Electronically signed by Brant Villanueva MD> Date Brant Villanueva MD Cosigner Signature (If Indicated): Date CC: No Primary Care Physician; Donna Pedroza MD DISCHARGE INSTRUCTION Observed: 08/30/2017 Status: F Source: [place] 11:53 PM [facility] REPOSITORY [facility] Medical Records Department [address] [place] [address] Discharge Instruction 08/30/172351 MR#: [id number] Acct: [id number] Name: ANALILIA TALLEY Rep #: [id number] : 1960 57 From: Brant Villanueva MD PCP: Donna Pedroza MD Status: DEP ER ED Disposition - Plan for ED Patient: Disposition: [facility] Chief Complaint: ETOH Intox Instructions: ED Alcohol Intoxication Referrals: Donna Pedroza MD [Primary Care Provider] - What to do if you have Problems For any increased pain, shortness of breath, bleeding, nausea or vomiting, chest pain, or any unexpected problems, contact your Primary Care Provider. Call [facility] ([phone]) or report to the closest Emergency Room. Call 911 if necessary. 08/30/17 0312 <Electronically signed by Brant Villanueva MD> Date Brant Villanueva MD Cosigner Signature (If Indicated): Date CC: No Primary Care Physician; Donna Pedroza MD 12 LEAD ELECTROCARDIOGRAM Observed: 08/12/2017 Status: F Source: [place] 3:10 PM [facility] REPOSITORY [facility] Cardiovascular Services [address] [place] [address] 12 Lead EKG 08/06/17 1134 MR#: [id number] Acct: [id number] Name: ANALILIA TALLEY Rep #: [id number] : 1960 57 From: Trung Bob MD Attending Dr: Status: DEP ER Ordering Dr: Ezra Gonzalez DO Date: 08/06/17 Location: ED Sex: M C Admitted: Test Reason : CP Blood Pressure : / mmHG Vent. Rate : 060 BPM Atrial Rate : 060 BPM P-R Int : 180 ms QRS Dur : 126 ms QT Int : 444 ms P-R-T Axes : 013 -07 079 degrees QTc Int : 444 ms Atrial-paced rhythm Right bundle branch block Abnormal ECG Confirmed by TRUNG BOB MD ([id number]), waiter/waitress tourist class BENJAMÍN JAVIER ([id number]) on 08/12/2017 3:09:46 PM Referred By: Confirmed By:TRUNG BOB MD 08/12/17 1509 Date Trung Bob MD CC: No Primary Care Physician; Ezra Gonzalez DO Signed EMERGENCY DEPARTMENT Observed: 08/06/2017 Status: F Source: [place] SUMMARY 4:08 PM [facility] REPOSITORY [facility] Medical Records Department [address] [place] [address] Emergency Department Summary 08/06/17 1203 MR#: [id number] Acct: [id number] Name: ANALILIA TALLEY Rep #: [id number] : 1960 57 From: Ezra Gonzalez DO PCP: Care Physician, No Primary Status: DEP ER - ER Visit Summary Date of Service: 08/06/17 Chief Complaint: Palpitations History of Present Illness: The patient is a 57 M who states that when he woke this morning around 9 or 930. He states he drank very heavily last night. He does have alcoholism. He also has a pacemaker due to sick sinus syndrome as well as diabetes and hypertension. He is unsure if he took his medications this morning. States he has discomfort in his mid back and between her shoulder blades it is an ache is worse with movement and palpation. He also states that he must slept wrong last night because his left arm and left leg are aching. He notes that sometimes he has felt nauseated but not so much today. Physical Examination: 208/110 otherwise vital signs are stable. Gen: Well-nourished well-developed Head: Normocephalic atraumatic Eyes: Perrl EOMI ENT: TMs clear no rhinorrhea moist mucous membranes Neck: Supple no lymphadenopathy no JVD nontender CVS: Regular rate rhythm 2 out of 6 systolic murmur Respiratory: No distress clear to auscultation bilaterally chest nontender Abdomen: Soft nontender nondistended normal bowel sounds no masses Back: Nontender Extremity: Nontender no edema Skin: Normal color no rash Neuro: alert orientated 3 CN II-XII intact normal strength sensation reflexes gait cerebellar Psych: Normal affect normal mood Test Results: Atrially paced rhythm at a rate of 60 without ectopy. CBC chemistries essentially negative except for glucose of 155. Magnesium 1.8. Troponin negative. Alcohol is 23. Chest x-ray negative. Normal mediastinal silhouette Emergency Department Course and Treatment: Patient has had no dysrhythmias on the monitor. He received his morning blood pressure medications and it is come down. Also gave an additional dose of clonidine. Patient was asked to follow-up with his doctors. He was asked to refrain from alcohol and seek help for that. Impression: 1. Palpitations 2. Alcoholism This note was generated with [employer] software. It may contain incorrect words, spelling, and punctuation that were not noted in review of the chart prior to signing ED Disposition - Plan for ED Patient: Disposition: Home or Assisted Living Chief Complaint: Chest Pain Instructions: ED Palpitations Referrals: Donna Pedroza MD [STAFF PHYSICIAN] - As soon as possible Luciano Larkin MD [STAFF PHYSICIAN] - As soon as possible What to do if you have Problems For any increased pain, shortness of breath, bleeding, nausea or vomiting, chest pain, or any unexpected problems, contact your Primary Care Provider. Call [facility] ([phone]) or report to the closest Emergency Room. Call 911 if necessary. 08/06/17 7328 <Electronically signed by Ezra Gonzalez DO> Date Ezra Gonzalez DO Cosigner Signature (If Indicated): Date CC: No Primary Care Physician CHEST 1 VIEW Observed: 08/06/2017 Status: F Source: [place] (PORTABLE) 11:57 AM [facility] REPOSITORY [facility] Imaging Services [address] [place] [address] Chest 1 View (Portable) MR#: [id number] Acct: [id number] Name: ANALILIA TALLEY Rep #: [id number] : 1960 M 57 From: Hardeep Burns DO PCP: Care Physician, No Primary Status: REG ER Study: Chest 1 View (Portable) Date of Exam: 08/06/17 Exam# [id number] Ordering Dr: Ezra Gonzalez DO STUDY: X-RAY CHEST REASON FOR EXAM: Male, 57 years old. Chest pain TECHNIQUE: Single AP portable view of the chest. COMPARISON: 04/13/2017 FINDINGS: Cardiac monitoring leads overlie the chest. Cardiac pacemaker is unchanged. There is linear scarring in the left lung base. There is hyperinflation of the upper lobes. There is no demonstrated pleural abnormality. Postoperative changes of aortic valve replacement are seen. Sternal wires are present. Normal mediastinum and akbar. Normal visualized pulmonary arteries. Normal visualized aortic arch and descending thoracic aorta. Normal visualized thoracic spine. Normal visualized ribs, clavicles, and shoulders. Surgical clips are seen within the right axilla. There is no demonstrated abnormality of the visualized soft tissue structures of the upper abdomen. RAD/Chest 1 View (Portable) IMPRESSION: Hyperinflation, with stable left basilar scarring. Postoperative changes of aortic valve replacement without significant change. Electronically Signed: Hardeep Burns DO at 12:22 EDT Tel , Service support , CC: No Primary Care Physician; Ezra Gonzalez DO Brake Coupler Dinkey: Signed CBC W/DIFF, AUTOMATED Collected: 08/06/2017 Status: F Source: [place] 11:48 AM [facility] REPOSITORY TYPE CODE TESTS RESULT OUT OF RANGE REFERENCE UNITS LAB L100.1000 4.4-11.0 K/mm3 Normal WBC 8.2 LAB L100.1200 4.6-6.2 M/mm3 Low RBC 4.46 LAB L100.1300 13.0-16.5 g/dl Normal HGB 13.7 LAB L100.1400 40-54 % Normal HCT 41.0 LAB L100.1500 80-94 fL Normal MCV 91.9 LAB L100.1600 27.0-32.0 pg Normal MCH 30.7 LAB L100.1700 32-36 g/gl Normal MCHC 33.4 LAB L100.1810 11.6-14.6 % Normal RDW CV 14.2 LAB L100.1820 35.1-43.9 fl High RDW SD 47.8 LAB L100.1900 150-450 K/mm3 Normal PLT 226 LAB L100.2000 6.2-12.0 fl Normal MPV 10.2 LAB L100.2100 47-70 % High NEUT% 73.0 LAB L100.2200 19-41 % Low LY% 17.8 LAB L100.2300 0-10 % Normal MONO% 6.2 LAB L100.2400 0-5 % Normal EO% 2.0 LAB L100.2500 0-1 % Normal BASO% 0.9 LAB L100.2550 0.0-0.9 % Normal IM GRAN % 0.100 Result Comment: IG% - Immature Granulocytes (promyelocytes, myelocytes and metamyelocytes) > 1% indicates that a LEFT SHIFT is Present. LAB L100.2620 2.0-7.7 X10 3/uL Normal Absolute Neut 6.0 LAB L100.2720 0.83-4.51 X10 3/ul Normal Absolute Lymph 1.46 Performed By: #### L100.0100 #### [facility] [address] [place], [address] ALCOHOL, BLOOD Collected: 08/06/2017 Status: F Source: [place] ([facility])-SERUM 11:48 AM [facility] REPOSITORY TYPE CODE TESTS RESULT OUT OF RANGE REFERENCE UNITS LAB L501.9100 mg/dL Normal SERUM 23.0 ETOH Result Comment: The serum:whole blood ethanol ratio is approximately 1.14 and varies slightly with hematocrit. Medical Alcohol reference interval and critical value in non-tolerant individuals; 50 - 100 Impairment 100 Intoxication 100 - 250 Severe Poisoning 250 - 400 Deep/possible fatal coma Performed By: #### L501.9100 #### [facility] [address] [place], [address] BASIC METABOLIC Collected: 08/06/2017 Status: F Source: [place] PROFILE (BMP) 11:48 AM [facility] REPOSITORY TYPE CODE TESTS RESULT OUT OF RANGE REFERENCE UNITS LAB L501.0100 74-106 mg/dL High GLU 155 Result Comment: Fasting Glucose result greater than or equal to 126 mg/dL suggests DIABETES MELLITUS per A.D.A. criteria. Please note revised GLUCOSE reference range effective 2017. LAB L501.1000 7-18 mg/dL Normal BUN 15 LAB L501.1100 0.70-1.30 mg/dL Normal CREAT,SERUM 0.97 Result Comment: The validity of the calculated GFR AND GFRAA in patients over 70 years has not been determined. Clinical correlation is essential. LAB L501.1110 >60 mL/min Normal EST GFR 85 Result Comment: Non- GFR Calc LAB L501.1115 >60 mL/min Normal EST GFR - AA 103 Result Comment: GFR Calc LAB L501.1255 ml/min Normal Estimated CRCL 91.65 LAB L501.1300 10-20 RATIO Normal BUN/CRE 15.4 LAB L501.2200 8.5-10 mg/dL Normal .1 CA 8.5 LAB L501.5300 136-14 mmol/L Normal 5 NA 143 LAB L501.5600 3.5-5. mmol/L Normal 1 K 4.2 LAB L501.5900 98-107 mmol/L Normal CL 106 LAB L501.6100 21.0-3 mmol/L Normal 2.0 CO2 25.0 LAB L501.6200 5-15 Normal GAP 12 Performed By: #### L500.2500, L500.3400, L501.4010, L501.5200 #### [facility] [address] [place], [address] LIVER PROFILE Collected: 08/06/2017 Status: F Source: [place] 11:48 AM [facility] REPOSITORY TYPE CODE TESTS RESULT OUT OF RANGE REFERENCE UNITS LAB L501.1500 6.4-8.2 g/dL Normal T PROT 7.2 LAB L501.1800 3.2-5.0 g/dL Normal ALB 3.7 LAB L501.1950 2.2-4.2 g/dL Normal GLOB 3.5 LAB L501.4100 15-37 U/L Normal AST 31 LAB L501.4305 45-117 U/L High ALK P 129 LAB L501.4405 16-61 U/L Normal ALT 47 LAB L501.4600 0.20-1.00 mg/dL Normal T BILI 0.70 LAB L501.4700 0.00-0.30 mg/dL Normal D BILI 0.18 Performed By: #### L500.2500, L500.3400, L501.4010, L501.5200 #### [facility] [address] [facility] [place], [place], [id number] TROPONIN-I Collected: 08/06/2017 Status: F Source: [place] 11:48 AM [facility] REPOSITORY TYPE CODE TESTS RESULT OUT OF RANGE REFERENCE UNITS LAB L501.4010 <0.045 ng/mL Normal < 0.015 TROPONIN-I Result Comment: TROPONIN-I EXPECTED VALUES <0.045 Negative 0.045 - 0.590 Consistent with Cardiac Damage > OR = 0.600 Critical Value Not every elevated troponin is indicative of WA. These values should be used with clinical judgement in examining the patient's clinical picture for diagnosis. To establish a diagnosis of WA versus myocardial injury, there must be a demonstrated rise and/or fall in the troponin values, in addition to ischemic symptoms, EKG changes, new regional wall motion abnormality, and/or angiographical evidence. PLEASE NOTE: REFERENCE RANGES EDITED 17 Performed By: #### L500.2500, L500.3400, L501.4010, L501.5200 #### [facility] [address] [place], [place], [id number] MAGNESIUM Collected: 08/06/2017 Status: F Source: [place] 11:48 AM [facility] REPOSITORY TYPE CODE TESTS RESULT OUT OF RANGE REFERENCE UNITS LAB L501.5200 1.6-2.6 mg/dL Normal MG 1.8 Performed By: #### L500.2500, L500.3400, L501.4010, L501.5200 #### [facility] [address] [place], [address] BEDSIDE GLUCOSE Collected: 08/06/2017 Status: F Source: [place] 11:42 AM [facility] REPOSITORY TYPE CODE TESTS RESULT OUT OF REFERENCE UNITS RANGE LAB L501.080 70-110 mg/dL High BEDSIDE GLU 163 Result Comment: MANAGEMENT OF PATIENT CARE PER NURSING PROTOCOL Performed By: #### L501.080 #### [facility] Point of Care [address] [place] [address] CBC AND DIFFERENTIAL Collected: 07/08/2017 Status: F Source: [place] 7:52 AM [facility] REPOSITORY TYPE CODE TESTS RESULT OUT OF REFERENCE UNITS RANGE LAB WBC 3.70-11.00 k/uL WBC 7.89 LAB RBC 4.20-6.00 m/uL Low RBC 3.97 LAB HGB 13.0-17.0 g/dL Low Hemoglobin 12.5 LAB HCT 39.0-51.0 % Hematocrit 39.3 LAB MCV 80.0-100.0 fL MCV 99.0 LAB MCH 26.0-34.0 pG MCH 31.5 LAB MCHC 30.5-36.0 g/dL MCHC 31.8 LAB RDWCV 11.5-15.0 % RDW-CV 13.5 LAB PLTCT 150-400 k/uL Platelet Count 227 LAB MPV 9.0-12.7 fL MPV 11.3 LAB ANEUT % Neut% 62.7 LAB AANEUT 1.45-7.50 k/uL Abs Neut 4.95 LAB ALYMP % Lymph% 23.8 LAB AALYMP 1.00-4.00 k/uL Abs Lymph 1.88 LAB AMONO % [place]% 8.0 LAB AAMONO <0.87 k/uL Abs [place] 0.63 LAB AEOS % Eosin% 3.7 LAB AAEOS <0.46 k/uL Abs Eosin 0.29 LAB ABASO % Baso% 1.8 LAB AABASO <0.11 k/uL Abs Baso High 0.14 LAB AUNRBC 0 /100 WBC NRBCs 0.0 LAB ABNRBC <0.01 k/uL Absolute nRBC <0.01 LAB DTYP DTYPE Auto Diff Performed By: #### CBCDIF, PT, PTT #### [facility] [email or web address] [address] [place], [place] [address] PROTIME Collected: 07/08/2017 Status: F Source: [place] 7:52 AM [facility] REPOSITORY TYPE CODE TESTS RESULT OUT OF RANGE REFERENCE UNITS LAB PSEC 9.7-13.0 sec PT Sec 12.4 LAB INR 0.9-1.3 PT INR 1.2 Result Comment: Vitamin K Antagonist (VKA) Therapeutic Range: INR 2 to 3 (Target INR of 2.5) Note: For patients treated with VKA drugs, such as warfarin, the [employer] 2012 Guideline recommends a therapeutic INR range of 2 to 3 (target INR of 2.5). This recommendation includes high-risk patients with antiphospholipid syndrome with previous arterial or venous thromboembolism, current-generation mechanical or bioprosthetic aortic heart valve replacement. Note: Patients with mechanical aortic valve replacement and additional risk factors for thromboembolic events (atrial fibrillation, previous thromboembolism, LV dysfunction, hypercoagulable conditions) or an older generation mechanical AVR (i.e., ball in-Cage) or any mechanical MVR should have a INR therapeutic range of 2.5 to 3.5 (target INR of 3). Mary Bethtt GH, et al. Chest 2012, 141:7S-47S Wilder RA, et al. [facility] 2017, 70: 252-289 Performed By: #### CBCDIF, PT, PTT #### [facility] [email or web address] [address] [place], [place] [address] APTT Collected: 07/08/2017 Status: F Source: [place] 7:52 AM [facility] REPOSITORY TYPE CODE TESTS RESULT OUT OF RANGE REFERENCE UNITS LAB APTT 23.0-32.4 sec APTT 27.7 Result Comment: Unfractionated Heparin Therapeutic Ranges: Standard Heparin Nomogram: 53 to 78 seconds (anti-Xa level of 0.3 to 0.7 U/ml) Low Dose/ACS Nomogram: 49 to 67 seconds (anti-Xa level of 0.2 to 0.5 U/ml) Stroke Treatment Nomogram: 49 to 67 seconds (anti-Xa level of 0.2 to 0.5 U/ml) Note: The APTT therapeutic range has been determined for the current lot of laboratory APTT reagent in use throughout the [facility]. Performed By: #### CBCDIF, PT, PTT #### [facility] [address] [place], [place] [address] PROGRESS Observed: 07/07/2017 Status: COMPLETED Source: [place] 5:48 PM [facility] REPOSITORY HNO ID: [id number] Author: Orlin Jackson Service: (none) Author Type: Physician Type: Progress Notes Filed: 07/07/2017 6:25 PM Note Text: Patient presents with: bilateral leg rash: x 1 week HPI: Rash: Location: lower legs Duration: 1 week Pruritis: Garcia and itches sometimes Pain: No Change: Seems to be spreading Bleeding/ulceration/blister/pustule: Red spots. He feels fine otherwise - no chest pain, palpitations, shortness of breath, fever, fatigue, hematuria, hematochezia, bleeding from gums. He feels little dizzy sometimes. Contacts with rash: No Exposure: No new soaps, detergents, fabric softeners, lotions, outdoor exposure. In [facility] program for heroin addiction (clean 2 years) vivitrol injection 1 week ago. No recent illness. Treatment: Triple antibiotic, gold english powder PAST MEDICAL HISTORY Diagnosis Date - Anxiety - Aortic aneurysm (HCC) S/P Repair - Aortic aneurysm (HCC) - Aortic valve disorder S/P Replacement - CAD (coronary artery disease) nonobstructive - Coronary artery disease - Depression - Diabetes mellitus, type II (HCC) Insulin dependent - Hx of ascending aorta repair - Hyperlipidemia - Hypertension - Non-ST elevation WA (NSTEMI) ([facility]) 06/24 - NSTEMI (non-ST elevated myocardial infarction) ([facility]) - Pacemaker - Pacemaker - Paroxysmal atrial fibrillation (HCC) - RBBB (right bundle branch block) - S/P aortic valve replacement [facility] [place] mechanical - Syncope - Tachy-netta syndrome (HCC) - Tachy-netta syndrome (HCC) - Tobacco abuse chronic - Tobacco user - Type 2 diabetes mellitus (HCC) MEDICATIONS: lisinopril (ZESTRIL, PRINIVIL) 20 mg tablet Take 1 tablet by mouth twice daily. atorvastatin (LIPITOR) 40 mg tablet Take 1 tablet by mouth once daily. metoprolol tartrate, short acting, (LOPRESSOR) 100 mg tablet Take 1 tablet by mouth twice daily. insulin detemir (LEVEMIR) 100 unit/mL injection Inject subcutaneously as directed. FLUoxetine (PROZAC) 20 mg capsule Take 20 mg by mouth once daily. MULTIVITAMIN ORAL Take 1 tablet by mouth once daily. aspirin 81 mg chewable tablet Take 2 tablets by mouth once daily. therapeutic multivitamin (THERA VITAMIN) tablet Take 1 tablet by mouth daily with breakfast. Insulin Clayton, Disposable, (NORBERTO PEN NEEDLE) 32 gauge x 32 ndle 1 application three times daily. metFORMIN (GLUCOPHAGE) 500 mg tablet Take 500 mg by mouth twice daily with meals. magnesium hydroxide (MOM) 400 mg/5 mL suspension Take 30 mL by mouth once daily as needed for Constipation. insulin glargine (LANTUS) 100 unit/mL (3 mL) inpn Inject 25 Units subcutaneously once daily. insulin glulisine (APIDRA SOLOSTAR) 100 unit/mL sub-Q pen Inject 12 Units subcutaneously daily before breakfast. insulin glulisine (APIDRA SOLOSTAR) 100 unit/mL sub-Q pen Inject 6 Units subcutaneously daily before lunch. insulin glulisine (APIDRA SOLOSTAR) 100 unit/mL sub-Q pen Inject 8 Units subcutaneously daily before dinner. ALLERGIES: ALLERGIES No Known Allergies VITALS: BP 152/100 Pulse 70 Temp 36.6 ?C (97.9 ?F) (Tympanic) Resp 18 Wt 71.4 kg (157 lb 6.4 oz) BMI 21.95 kg/m? Last 4 Encounter BP Readings: Date: BP: 07/07/2017 152/100 04/29/2017 138/72 10/30/2016 154/105 07/30/2016 136/76 PHYSICAL EXAM: GEN: pleasant, no acute distress, alert HEENT: PERRL, EOMI, MMM NECK: supple, no lymphadenopathy, no thyromegaly HEART: regular rate, regular rhythm, 2/6 early systolic murmurs LUNGS: clear to auscultation, no wheezes or crackles, no increased WOB EXT: no clubbing, no cyanosis, no edema SKIN: Non-blanching red petechial rash in spots and confluent patches from below the knees to above his tube sock line. Sparse petechia on the foot. ASSESSMENT/PLAN: 1. Petechial rash - ICD9: 782.7, ICD10: R23.3 He will return tomorrow morning for labs and avoid any contact activities. Advised to seek emergency follow up if he develops additional symptoms. - CBC + DIFF - PROTHROMBIN TIME/PT - ACTIVATED PTT Orlin Jackson MD CNOV Observed: 07/07/2017 Status: COMPLETED Source: [place] 5:30 PM [facility] REPOSITORY Office Visit (WSTR) ANALILIA TALLEY ([id number]) 1960 M Date Time Provider Department 07/07/17 5:30 PM ORLIN JACKSON [facility] During your visit today, we recorded the following information about you: Temperature Pulse Respiration Blood pressure 97.9 degrees 70/minute 18/minute 152/100 Weight 71.4 kg Orlin Jackson MD 07/07/2017 6:25 PM Signed Patient presents with: bilateral leg rash: x 1 week HPI: Rash: Location: lower legs Duration: 1 week Pruritis: Garcia and itches sometimes Pain: No Change: Seems to be spreading Bleeding/ulceration/blister/pustule: Red spots. He feels fine otherwise - no chest pain, palpitations, shortness of breath, fever, fatigue, hematuria, hematochezia, bleeding from gums. He feels little dizzy sometimes. Contacts with rash: No Exposure: No new soaps, detergents, fabric softeners, lotions, outdoor exposure. In [facility] program for heroin addiction (clean 2 years) vivitrol injection 1 week ago. No recent illness. Treatment: Triple antibiotic, gold english powder PAST MEDICAL HISTORY Diagnosis Date - Anxiety - Aortic aneurysm (HCC) S/P Repair - Aortic aneurysm (HCC) - Aortic valve disorder S/P Replacement - CAD (coronary artery disease) nonobstructive - Coronary artery disease - Depression - Diabetes mellitus, type II (HCC) Insulin dependent - Hx of ascending aorta repair - Hyperlipidemia - Hypertension - Non-ST elevation [place] (NSTEMI) ([facility]) 06/24 - NSTEMI (non-ST elevated myocardial infarction) ([facility]) - Pacemaker - Pacemaker - Paroxysmal atrial fibrillation ([facility]) - RBBB (right bundle branch block) - S/P aortic valve replacement [facility] mechanical - Syncope - Tachy-netta syndrome (HCC) - Tachy-netta syndrome (HCC) - Tobacco abuse chronic - Tobacco user - Type 2 diabetes mellitus ([facility]) MEDICATIONS: lisinopril (ZESTRIL, PRINIVIL) 20 mg tablet Take 1 tablet by mouth twice daily. atorvastatin (LIPITOR) 40 mg tablet Take 1 tablet by mouth once daily. metoprolol tartrate, short acting, (LOPRESSOR) 100 mg tablet Take 1 tablet by mouth twice daily. insulin detemir (LEVEMIR) 100 unit/mL injection Inject subcutaneously as directed. FLUoxetine (PROZAC) 20 mg capsule Take 20 mg by mouth once daily. MULTIVITAMIN ORAL Take 1 tablet by mouth once daily. aspirin 81 mg chewable tablet Take 2 tablets by mouth once daily. therapeutic multivitamin (THERA VITAMIN) tablet Take 1 tablet by mouth daily with breakfast. Insulin Clayton, Disposable, (NORBERTO PEN NEEDLE) 32 gauge x 5/32 ndle 1 application three times daily. metFORMIN (GLUCOPHAGE) 500 mg tablet Take 500 mg by mouth twice daily with meals. magnesium hydroxide (MOM) 400 mg/5 mL suspension Take 30 mL by mouth once daily as needed for Constipation. insulin glargine (LANTUS) 100 unit/mL (3 mL) inpn Inject 25 Units subcutaneously once daily. insulin glulisine (APIDRA SOLOSTAR) 100 unit/mL sub-Q pen Inject 12 Units subcutaneously daily before breakfast. insulin glulisine (APIDRA SOLOSTAR) 100 unit/mL sub-Q pen Inject 6 Units subcutaneously daily before lunch. insulin glulisine (APIDRA SOLOSTAR) 100 unit/mL sub-Q pen Inject 8 Units subcutaneously daily before dinner. ALLERGIES: ALLERGIES No Known Allergies VITALS: BP 152/100 Pulse 70 Temp 36.6 ?C (97.9 ?F) (Tympanic) Resp 18 Wt 71.4 kg (157 lb 6.4 oz) BMI 21.95 kg/m? Last 4 Encounter BP Readings: Date: BP: 07/07/2017 152/100 04/29/2017 138/72 10/30/2016 154/105 07/30/2016 136/76 PHYSICAL EXAM: GEN: pleasant, no acute distress, alert HEENT: PERRL, EOMI, MMM NECK: supple, no lymphadenopathy, no thyromegaly HEART: regular rate, regular rhythm, 2/6 early systolic murmurs LUNGS: clear to auscultation, no wheezes or crackles, no increased WOB EXT: no clubbing, no cyanosis, no edema SKIN: Non-blanching red petechial rash in spots and confluent patches from below the knees to above his tube sock line. Sparse petechia on the foot. ASSESSMENT/PLAN: 1. Petechial rash - ICD9: 782.7, ICD10: R23.3 He will return tomorrow morning for labs and avoid any contact activities. Advised to seek emergency follow up if he develops additional symptoms. - CBC + DIFF - PROTHROMBIN TIME/PT - ACTIVATED PTT Orlin Jackson MD Referring Provider: SELF [[id number]] Allergies As of Date: 07/07/2017 (No Known Allergies) Date Reviewed: 07/07/2017 Reviewed by: Brianna Summers LPN - Fully Assessed Reason for Visit: bilateral leg rash [Other] Cmt: x 1 week Primary Visit Diagnosis:Petechial rash [R23.3] Order(s):CBC + DIFF [SQCBCDIF] Order #: [id number] FUTURE PROTHROMBIN TIME/PT [SQPT] Order #: [id number] FUTURE ACTIVATED PTT [SQPTT] Order #: [id number] FUTURE Prescriptions as of 07/07/2017 Sig: LISINOPRIL 20 MG TABLET Take 1 tablet by mouth twice * ATORVASTATIN 40 MG TABLET Take 1 tablet by mouth once d* METOPROLOL TARTRATE 100 MG TA* Take 1 tablet by mouth twice * INSULIN DETEMIR (U-100) 100 U* Inject subcutaneously as dir* FLUOXETINE 20 MG CAPSULE Take 20 mg by mouth once lorene* MULTIVITAMIN ORAL Take 1 tablet by mouth once d* ASPIRIN 81 MG CHEWABLE TABLET Take 2 tablets by mouth once * THERAPEUTIC MULTIVITAMIN TABL* Take 1 tablet by mouth daily * PEN NEEDLE, DIABETIC 32 GAUGE* 1 application three times amisha* METFORMIN 500 MG TABLET Take 500 mg by mouth twice da* MAGNESIUM HYDROXIDE 400 MG/5 * Take 30 mL by mouth once lorene* INSULIN GLARGINE (U-100) 100 * Inject 25 Units subcutaneousl* INSULIN GLULISINE (U-100) 100* Inject 12 Units subcutaneousl* INSULIN GLULISINE (U-100) 100* Inject 6 Units subcutaneously* INSULIN GLULISINE (U-100) 100* Inject 8 Units subcutaneously* Problem List As Of Date 07/07/2017 Noted Resolved SUMMARY INVALID FOR* Priority: A More... Acute thoracic aortic dissection (HCC) [I71.01] INVALID FOR* Priority: Very Severe More... Primary hypertension [I10] INVALID FOR* Priority: C More... History of IVDU (intravenous drug user) [F19.90]INVALID FOR* More... Smoking greater than 10 pack years [F17.210] INVALID FOR* Priority: B More... History of depression [Z86.59] INVALID FOR* More... Type 2 diabetes mellitus with complication, wit*INVALID FOR* Priority: E More... More... Alcohol-induced chronic pancreatitis (HCC) [K86*INVALID FOR* More... History of ruptured aneurysm of thoracic aorta *INVALID FOR*03/10/2016 More... Acute headache [R51] INVALID FOR* More... History of alcohol abuse [Z87.898] INVALID FOR* More... History of dissection of thoracic aorta [Z86.79]INVALID FOR* More... Preop testing [Z01.818] INVALID FOR*03/20/2016 More... Cardiac insufficiency (HCC) [I50.9] INVALID FOR*03/26/2016 Priority: Severe More... Postoperative hypotension [I95.89] INVALID FOR*03/21/2016 Priority: B More... Pain, postoperative, acute [G89.18] INVALID FOR* Priority: D More... More... 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 Acute respiratory failure with hypoxia (HCC) [J*INVALID FOR*03/26/2016 Priority: B More... Fluid overload [E87.70] INVALID FOR*03/22/2016 Priority: F More... Hypoxemia [R09.02] INVALID FOR*03/26/2016 More... Discharge planning issues [Z02.9] INVALID FOR* Priority: M More... 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] Pacemaker [Z95.0] Encounter Status:Closed by ORLIN JACKSON MD on 07/07/17 PROTIME Collected: 04/29/2017 Status: F Source: CLOSPLINT 10:15 AM [facility] REPOSITORY TYPE CODE TESTS RESULT OUT OF RANGE REFERENCE UNITS LAB PSEC 9.7-13.0 sec PT Sec 11.4 LAB INR 0.9-1.3 PT INR 1.1 Result Comment: Vitamin K Antagonist (VKA) Therapeutic Range: INR 2 to 3 (Target INR of 2.5) Note: For patients treated with VKA drugs, such as warfarin, the [place] [employer] 2012 Guideline recommends a therapeutic INR range of 2 to 3 (target INR of 2.5). This recommendation includes high-risk patients with antiphospholipid syndrome with previous arterial or venous thromboembolism, current-generation mechanical or bioprosthetic aortic heart valve replacement. Note: Patients with mechanical aortic valve replacement and additional risk factors for thromboembolic events (atrial fibrillation, previous thromboembolism, LV dysfunction, hypercoagulable conditions) or an older generation mechanical AVR (i.e., ball in-Cage) or any mechanical MVR should have a INR therapeutic range of 2.5 to 3.5 (target INR of 3). Cecile GH, et al. Chest 2012, 141:7S-47S Wilder RA, et al. [facility] 2017, 70: 252-289 Performed By: #### PT, CBC, BMP, LIPB, MG1 #### [facility] [address] [id number] CBC Collected: 04/29/2017 Status: F Source: CLOSPLINT 10:15 AM [facility] REPOSITORY TYPE CODE TESTS RESULT OUT OF REFERENCE UNITS RANGE LAB WBC 3.70-11.00 k/uL WBC High 11.42 LAB RBC 4.20-6.00 m/uL Low RBC 3.94 LAB HGB 13.0-17.0 g/dL Low Hemoglobin 12.4 LAB HCT 39.0-51.0 % Low Hematocrit 38.2 LAB MCV 80.0-100.0 fL MCV 97.0 LAB MCH 26.0-34.0 pG MCH 31.5 LAB MCHC 30.5-36.0 g/dL MCHC 32.5 LAB RDWCV 11.5-15.0 % RDW-CV 14.2 LAB PLTCT 150-400 k/uL Platelet Count 214 LAB MPV 9.0-12.7 fL MPV 11.8 LAB ABSNUC <0.01 k/uL Absolute nRBC <0.01 Performed By: #### PT, CBC, BMP, LIPB, MG1 #### [facility] [address] [place], [place] [address] BASIC METABOLIC PANL Collected: 04/29/2017 Status: F Source: CLOSPLINT 10:15 AM [facility] REPOSITORY TYPE CODE TESTS RESULT OUT OF REFERENCE UNITS RANGE LAB GLU 74-99 mg/dL High Glucose 233 Result Comment: The [place] [employer] (ADA) provides guidance for cutoff values for fasting glucose and random glucose. The ADA defines fasting as no caloric intake for at least 8 hours. Fas ting plasma glucose results between 100 to 125 mg/dL indicate increased risk for diabetes (prediabetes). Fasting plasma glucose results greater than or equal to 126 mg/dL meet the criteria for diagnosis of diabetes. In the absence of unequivocal hyperglycemia, results should be confirmed by repeat testing. In a patient with classic symptoms of hyperglycemia or hyperglycemic crisis, random plasma glucose results greater than or equal to 200 mg/dL meet the criteria for diagnosis of diabetes. Reference: Standards of Medical Care in Diabetes 2016, [place] [employer]. Diabetes Care. 2016.39(Suppl 1). LAB BUN 9-24 mg/dL BUN 20 LAB CRET 0.73-1.22 mg/dL Creatinine 0.82 LAB NA 136-144 mmol/L Sodium 137 LAB K 3.7-5.1 mmol/L Potassium 4.6 LAB CL 97-105 mmol/L Chloride 100 LAB CO2 22-30 mmol/L CO2 26 LAB AGAP 9-18 mmol/L Anion Gap 11 LAB CA 8.5-10.2 mg/dL Calcium, Total 9.3 LAB GFRAA eGFR- Amer. >60 LAB GFRNAA . eGFR-All Other Races >60 Result Comment: eGFR (Estimated GFR) Units of measure: mL/min/1.73 meters squared eGFR is derived from the reexpressed MDRD Study equation using the following parameters: serum creatinine, age, gender and race. The creatinine assay has been calibrated to be traceable to IDMS. An eGFR <60 mL/min/1.73m2 for >3 months is consistent with chronic kidney disease. Refer to KDOQI guidelines for clinical interpretation. In patients with unstable renal function, e.g. those with acute kidney injury, the eGFR may not accurately reflect actual GFR. Performed By: #### PT, CBC, BMP, LIPB, MG1 #### [facility] [address] [place], [place] [address] LIPID PANEL, BASIC Collected: 04/29/2017 Status: F Source: CLOSPLINT 10:15 AM [facility] REPOSITORY TYPE CODE TESTS RESULT OUT OF REFERENCE UNITS RANGE LAB CHOL <200 mg/dL Cholesterol 100 Result Comment: <200 mg/dL, Desirable 200-239 mg/dL, Borderline high >239 mg/dL, High LAB TRIGLY <150 mg/dL Triglyceride 97 Result Comment: <150 mg/dL, Normal 150-199 mg/dL, Borderline high 200-499 mg/dL, High >499 mg/dL, Very high LAB HDL >39 mg/dL HDL-Cholesterol 44 Result Comment: 40-59 mg/dL, Acceptable >59 mg/dL, High: Negative risk factor for coronary heart disease <40 mg/dL, Low: Positive risk factor for coronary heart disease LAB LDL <100 mg/dL LDL-Cholesterol 37 Result Comment: <100 mg/dL, Optimal 100-129 mg/dL, Near optimal/above optimal 130-159 mg/dL, Borderline high 160-189 mg/dL, High >189 mg/dL, Very high Secondary prevention optimal LDL Cholesterol levels are recommended to be < 70 mg/dL LAB NONHDL <130 mg/dL Non HDL Cholesterol 56 Result Comment: <130 mg/dL, Optimal 130-159 mg/dL, Near optimal/above optimal 160-189 mg/dL, Borderline high 190-219 mg/dL, High >219 mg/dL, Very high Secondary prevention optimal non HDL Cholesterol levels are recommended to be < 100 mg/dL LAB FT hrs Fasting Time 3 LAB VLDL <30 mg/dL VLDL Cholesterol 19 LAB TCHDL <5.10 TC:HDL Ratio 2.27 LAB LDLHDL <2.54 LDL:HDL Ratio 0.84 Result Comment: Reference: 1. National Cholesterol Education Program ATP III Guideline At-A-Glance Quick Desk Reference: National Heart, Lung, and Blood [place]. National Institutes of Health. 2001: NIH Publication No. 01-3305. 2. An International Atherosclerosis Society position paper: global recommendations for the management of dyslipidemia: executive summary, Atherosclerosis. 2014: 232(2):410-413. Performed By: #### PT, CBC, BMP, LIPB, MG1 #### [facility] [email or web address] [address] [place], [place] [address] MAGNESIUM Collected: 04/29/2017 Status: F Source: CLOSPLINT 10:15 AM [facility] REPOSITORY TYPE CODE TESTS RESULT OUT OF REFERENCE UNITS RANGE LAB MG 1.7-2.3 mg/dL Magnesium 2.1 Performed By: #### PT, CBC, BMP, LIPB, MG1 #### [facility] [email or web address] [address] [place], [place] [address] PROGRESS Observed: 04/29/2017 Status: COMPLETED Source: CLOSPLINT 9:55 AM [facility] REPOSITORY HNO ID: [id number] Author: Luciano Larkin Service: (none) Author Type: Physician Type: Progress Notes Filed: 04/29/2017 6:05 PM Note Text: PERTINENT CARDIAC HISTORY Palpitations Aortic valve disease - AVR (mechanical) 2014, AVR redo (bio #23) 2016, mild dysfunction Aortic aneurysm - repair 2005, repair 2017 CHB - PPM 06/24 SVT A fib - PAF - C-V 2 HL HTN DM Tobaccoism ADHERENCE TO GUIDELINES ANKIT-I or ARB for HF with prior LVEF<40 (NQF 0081) - N/A ASA or Plavix for ASHD (NQF 0067) - met Beta maria luz for ASHD with prior WA or prior LVEF<40 (NQF 0070) - N/A Beta maria luz for HF with prior LVEF<40 (NQF 0083) - N/A ANKIT-I or ARB for ASHD with DM or prior LVEF<40 (NQF 0066) - met Statin therapy for ASHD or FHL or DM - met BMI documented and plan if >25 (NQF 0421) - lifestyle recommendation form Tobacco use screening and referral (NQF 0028) - lifestyle recommendation form Recommendation for whole food, plant based diet - lifestyle recommendation form CLINICAL IMPRESSION/PLAN: Analilia Talley has stable valvular heart disease. His valve prosthetic gradients are upper limits normal and the outflow murmur suggests an element of valve dysfunction. He has documented intermittent atrial fibrillation on his pacemaker check. He will be started on warfarin, which he had taken without complication prior to 2016 when his valve is revised. Baseline labs will be checked today. We will ask for his INRs to be followed in primary care with a target INR of 2-3. He will be advised to discontinue aspirin when his warfarin is started. Baseline labs including magnesium, CBC, basic profile, INR and lipid profile will be drawn today. I will see him in 6 months, at which time he will have an echocardiogram for follow-up of his valvular heart disease. I've asked him to contact us with vital signs next week. We will likely need to adjust his antihypertensive therapy. Written and verbal health teaching given to patient, patient verbalizes understanding and agrees with treatment plan. This note was generated using [employer] voice recognition system, and there may be some incorrect words, spellings, and punctuation that were not noted in checking the note before saving. DIAGNOSIS FOR VISIT: PAF AVR HISTORY OF PRESENT ILLNESS Analilia Talley returns for follow-up of his valvular heart disease . He is unaware of any irregular heart rhythm. He reports stable exercise tolerance. He's had no chest discomfort. He denies edema, syncope, TIAs, amaurosis and claudication . He recently had his pacemaker checked. He reports that blood pressures at home have been in the 130 systolic range. Initial blood pressure today was 160/72 ALLERGIES: ALLERGIES No Known Allergies CURRENT OUTPATIENT MEDICATIONS: lisinopril (ZESTRIL, PRINIVIL) 20 mg tablet Take 1 tablet by mouth twice daily. atorvastatin (LIPITOR) 40 mg tablet Take 1 tablet by mouth once daily. metoprolol tartrate, short acting, (LOPRESSOR) 100 mg tablet Take 1 tablet by mouth twice daily. insulin detemir (LEVEMIR) 100 unit/mL injection Inject subcutaneously as directed. metFORMIN (GLUCOPHAGE) 500 mg tablet Take 500 mg by mouth twice daily with meals. FLUoxetine (PROZAC) 20 mg capsule Take 20 mg by mouth once daily. MULTIVITAMIN ORAL Take 1 tablet by mouth once daily. aspirin 81 mg chewable tablet Take 2 tablets by mouth once daily. magnesium hydroxide (MOM) 400 mg/5 mL suspension Take 30 mL by mouth once daily as needed for Constipation. therapeutic multivitamin (THERA VITAMIN) tablet Take 1 tablet by mouth daily with breakfast. insulin glargine (LANTUS) 100 unit/mL (3 mL) inpn Inject 25 Units subcutaneously once daily. Insulin Clayton, Disposable, (NORBERTO PEN NEEDLE) 32 gauge x 532 ndle 1 application three times daily. insulin glulisine (APIDRA SOLOSTAR) 100 unit/mL sub-Q pen Inject 12 Units subcutaneously daily before breakfast. insulin glulisine (APIDRA SOLOSTAR) 100 unit/mL sub-Q pen Inject 6 Units subcutaneously daily before lunch. insulin glulisine (APIDRA SOLOSTAR) 100 unit/mL sub-Q pen Inject 8 Units subcutaneously daily before dinner. PAST MEDICAL HISTORY Diagnosis Date - Anxiety - Aortic aneurysm (HCC) S/P Repair - Aortic aneurysm (HCC) - Aortic valve disorder S/P Replacement - CAD (coronary artery disease) nonobstructive - Coronary artery disease - Depression - Diabetes mellitus, type II ([facility]) Insulin dependent - Hx of ascending aorta repair - Hyperlipidemia - Hypertension - Non-ST elevation [place] (NSTEMI) ([facility]) 06/24 - NSTEMI (non-ST elevated myocardial infarction) ([facility]) - Pacemaker - Pacemaker - Paroxysmal atrial fibrillation ([facility]) - RBBB (right bundle branch block) - S/P aortic valve replacement [facility]. Wero mechanical - Syncope - Tachy-netta syndrome ([facility]) - Tachy-netta syndrome ([facility]) - Tobacco abuse chronic - Tobacco user - Type 2 diabetes mellitus ([facility]) PAST SURGICAL HISTORY Procedure Laterality Date - ABD AORTIC ANEURYSM REPAIR - ASCENDING AORTA GRAFT W/AORTIC ROOT - CORONARY ARTERY BYPASS GRAFT HX 2016 2005 - HEART CATHETERIZATION 06/24/2016 - HEART VALVE REPLACEMENT 2017 Aortic x2 ;2015 - HERNIA REPAIR HX - PACEMAKER 06/25/2016 - REPLACEMENT AORTIC VALVE W BYPASS FAMILY HISTORY Problem Relation Age of Onset - Coronary Artery Disease Father Social History Marital status: Single Spouse name: Years of education: Number of children: Social History Main Topics Smoking status: Former Smoker Packs/day: 0.50 Years: 0.00 Types: Cigarettes Quit date: 03/09/2016 Smokeless status: Never Used Alcohol use: No Drug use: No Social History Narrative Merged History Encounter REVIEW OF SYSTEMS: General: No chills, fever, weight loss, night sweats. Respiratory: No productive cough. Cardiac: As noted above. GI: No melena. : No dysuria. Musculoskeletal: No myalgias. PHYSICAL EXAMINATION: S/he is alert and in no distress. VITAL SIGNS: BP 138/72 Pulse 60 Wt 159 lb 3.2 oz (72.2kg) SHEENT: Skin is warm and dry. No xanthelasmas appreciated. Pharynx is benign. There is no oral cyanosis. Neck: supple. No adenopathy or thyroid enlargement. Chest: Clear to percussion and auscultation. Trachea is midline. Air entry is equal. There is no chest wall tenderness. Cardiac: Regular rhythm. S1 and S2 are normal. PMI is nondisplaced. There is a harsh 2/6 early systolic aortic outflow murmur. No click is heard. Carotids are brisk without bruits. JVP is less than 10 cm. Abdomen: Soft and nontender. There are no pulsatile masses or bruits. No liver enlargement. Bowel sounds are active. Extremities: No edema. Pulses are intact and symmetrical. No clubbing or cyanosis. No femoral bruits. Neurologic: Grossly normal motor and sensory. S/he is alert and oriented x4. Recent remote pacemaker check was reviewed. He is having episodes of atrial fibrillation lasting up to 4 minutes. Echo was performed in October. This shows gradients at the upper limits normal, but improved. Electronically Signed: Luciano Larkin MD April 29, 2017 9:55 AM CC:Donna Pedroza MD CNOV Observed: 04/29/2017 Status: COMPLETED Source: CLOSPLINT 9:00 AM [facility] [place] REPOSITORY Office Visit (AGCARDWST) ANALILIA TALLEY ([id number]) 1960 M Date Time Provider Department 04/29/17 9:00 AM LUCIANO LARKIN AGCARDHARRY During your visit today, we recorded the following information about you: Pulse Blood pressure Weight 60/minute 138/72 72.2 kg Luciano Larkin MD 04/29/2017 6:05 PM Signed PERTINENT CARDIAC HISTORY Palpitations Aortic valve disease - AVR (mechanical) 2014, AVR redo (bio #23) 2016, mild dysfunction Aortic aneurysm - repair 2005, repair 2016 CHB - PPM 06/24 SVT A fib - PAF - C-V 2 HL HTN DM Tobaccoism ADHERENCE TO GUIDELINES ANKIT-I or ARB for HF with prior LVEFANDlt;40 (NQF 0081) - N/A ASA or Plavix for ASHD (NQF 0067) - met Beta maria luz for ASHD with prior [place] or prior LVEFANDlt;40 (NQF 0070) - N/A Beta maria luz for HF with prior LVEFANDlt;40 (NQF 0083) - N/A ANKIT-I or ARB for ASHD with DM or prior LVEFANDlt;40 (NQF 0066) - met Statin therapy for ASHD or FHL or DM - met BMI documented and plan if ANDgt;25 (NQF 0421) - lifestyle recommendation form Tobacco use screening and referral (NQF 0028) - lifestyle recommendation form Recommendation for whole food, plant based diet - lifestyle recommendation form CLINICAL IMPRESSION/PLAN: Analilia Talley has stable valvular heart disease. His valve prosthetic gradients are upper limits normal and the outflow murmur suggests an element of valve dysfunction. He has documented intermittent atrial fibrillation on his pacemaker check. He will be started on warfarin, which he had taken without complication prior to 2016 when his valve is revised. Baseline labs will be checked today. We will ask for his INRs to be followed in primary care with a target INR of 2-3. He will be advised to discontinue aspirin when his warfarin is started. Baseline labs including magnesium, CBC, basic profile, INR and lipid profile will be drawn today. I will see him in 6 months, at which time he will have an echocardiogram for follow-up of his valvular heart disease. I've asked him to contact us with vital signs next week. We will likely need to adjust his antihypertensive therapy. Written and verbal health teaching given to patient, patient verbalizes understanding and agrees with treatment plan. This note was generated using [employer] voice recognition system, and there may be some incorrect words, spellings, and punctuation that were not noted in checking the note before saving. DIAGNOSIS FOR VISIT: PAF AVR HISTORY OF PRESENT ILLNESS Analilia Talley returns for follow-up of his valvular heart disease . He is unaware of any irregular heart rhythm. He reports stable exercise tolerance. He's had no chest discomfort. He denies edema, syncope, TIAs, amaurosis and claudication . He recently had his pacemaker checked. He reports that blood pressures at home have been in the 130 systolic range. Initial blood pressure today was 160/72 ALLERGIES: ALLERGIES No Known Allergies CURRENT OUTPATIENT MEDICATIONS: lisinopril (ZESTRIL, PRINIVIL) 20 mg tablet Take 1 tablet by mouth twice daily. atorvastatin (LIPITOR) 40 mg tablet Take 1 tablet by mouth once daily. metoprolol tartrate, short acting, (LOPRESSOR) 100 mg tablet Take 1 tablet by mouth twice daily. insulin detemir (LEVEMIR) 100 unit/mL injection Inject subcutaneously as directed. metFORMIN (GLUCOPHAGE) 500 mg tablet Take 500 mg by mouth twice daily with meals. FLUoxetine (PROZAC) 20 mg capsule Take 20 mg by mouth once daily. MULTIVITAMIN ORAL Take 1 tablet by mouth once daily. aspirin 81 mg chewable tablet Take 2 tablets by mouth once daily. magnesium hydroxide (MOM) 400 mg/5 mL suspension Take 30 mL by mouth once daily as needed for Constipation. therapeutic multivitamin (THERA VITAMIN) tablet Take 1 tablet by mouth daily with breakfast. insulin glargine (LANTUS) 100 unit/mL (3 mL) inpn Inject 25 Units subcutaneously once daily. Insulin Clayton, Disposable, (NORBERTO PEN NEEDLE) 32 gauge x 5/32ANDquot; ndle 1 application three times daily. insulin glulisine (APIDRA SOLOSTAR) 100 unit/mL sub-Q pen Inject 12 Units subcutaneously daily before breakfast. insulin glulisine (APIDRA SOLOSTAR) 100 unit/mL sub-Q pen Inject 6 Units subcutaneously daily before lunch. insulin glulisine (APIDRA SOLOSTAR) 100 unit/mL sub-Q pen Inject 8 Units subcutaneously daily before dinner. PAST MEDICAL HISTORY Diagnosis Date - Anxiety - Aortic aneurysm (HCC) S/P Repair - Aortic aneurysm (HCC) - Aortic valve disorder S/P Replacement - CAD (coronary artery disease) nonobstructive - Coronary artery disease - Depression - Diabetes mellitus, type II (HCC) Insulin dependent - Hx of ascending aorta repair - Hyperlipidemia - Hypertension - Non-ST elevation [place] (NSTEMI) ([facility]) 06/24 - NSTEMI (non-ST elevated myocardial infarction) ([facility]) - Pacemaker - Pacemaker - Paroxysmal atrial fibrillation ([facility]) - RBBB (right bundle branch block) - S/P aortic valve replacement [facility] mechanical - Syncope - Tachy-netta syndrome (HCC) - Tachy-netta syndrome ([facility]) - Tobacco abuse chronic - Tobacco user - Type 2 diabetes mellitus ([facility]) PAST SURGICAL HISTORY Procedure Laterality Date - ABD AORTIC ANEURYSM REPAIR - ASCENDING AORTA GRAFT W/AORTIC ROOT - CORONARY ARTERY BYPASS GRAFT HX 2016 2005 - HEART CATHETERIZATION 06/24/2016 - HEART VALVE REPLACEMENT 2017 Aortic x2 ;2014 - HERNIA REPAIR HX - PACEMAKER 06/25/2016 - REPLACEMENT AORTIC VALVE W BYPASS FAMILY HISTORY Problem Relation Age of Onset - Coronary Artery Disease Father Social History Marital status: Single Spouse name: Years of education: Number of children: Social History Main Topics Smoking status: Former Smoker Packs/day: 0.50 Years: 0.00 Types: Cigarettes Quit date: 03/09/2016 Smokeless status: Never Used Alcohol use: No Drug use: No Social History Narrative Merged History Encounter REVIEW OF SYSTEMS: General: No chills, fever, weight loss, night sweats. Respiratory: No productive cough. Cardiac: As noted above. GI: No melena. : No dysuria. Musculoskeletal: No myalgias. PHYSICAL EXAMINATION: S/he is alert and in no distress. VITAL SIGNS: BP 138/72 Pulse 60 Wt 159 lb 3.2 oz (72.2kg) SHEENT: Skin is warm and dry. No xanthelasmas appreciated. Pharynx is benign. There is no oral cyanosis. Neck: supple. No adenopathy or thyroid enlargement. Chest: Clear to percussion and auscultation. Trachea is midline. Air entry is equal. There is no chest wall tenderness. Cardiac: Regular rhythm. S1 and S2 are normal. PMI is nondisplaced. There is a harsh 2/6 early systolic aortic outflow murmur. No click is heard. Carotids are brisk without bruits. JVP is less than 10 cm. Abdomen: Soft and nontender. There are no pulsatile masses or bruits. No liver enlargement. Bowel sounds are active. Extremities: No edema. Pulses are intact and symmetrical. No clubbing or cyanosis. No femoral bruits. Neurologic: Grossly normal motor and sensory. S/he is alert and oriented x4. Recent remote pacemaker check was reviewed. He is having episodes of atrial fibrillation lasting up to 4 minutes. Echo was performed in October. This shows gradients at the upper limits normal, but improved. Electronically Signed: Luciano Larkin MD April 29, 2017 9:55 AM CC:MD Luciano Valdez MD 04/29/2017 9:55 AM Signed LIFESTYLE CHANGE A healthy lifestyle is the most important component of your overall treatment plan. Please give serious thought to the following areas and commit to making intermediate designer changes. EAT A WHOLE FOOD, PLANT BASED DIET The nutrition your body gets is more important than the medicine you take. What matters most is the overall way you eat. We encourage you to minimize the use of animal products (which include dairy and all meats except fatty fish) and use whole, unprocessed plant foods to provide your protein, vitamins and other nutrients. We have a lot of information to share with you on this topic. We also hold Shared Medical Appointments, where you can come visit with Dr. Larkin in the company of other patients and spend over an hour talking about the challenges of changing the way you eat. This is not a ANDquot;dietANDquot;. It is a way of life that you will keep with you. EXERCISE REGULARLY It is not important to spend hours in the gym, lifting weights and perspiring heavily. A total of 2-3 hours per week of aerobic (causing you to be moderately short of breath) exercise is sufficient to improve your health. Talk to us before you begin a new exercise program, if you have heart disease or experience shortness of breath or chest pain. REDUCE STRESS Chronic emotional and physical stress leads to disease. Ways of reducing stress include meditation, visualization, prayer, yoga and other forms of relaxation therapy. Consistency is the claudio. Find a technique that works for you and do it every day. CULTIVATE RELATIONSHIPS Loneliness and isolation have a major negative impact on health. Seek out others who can love, care for and nurture you. Avoid hurtful relationships. MAINTAIN IDEAL BODY WEIGHT The best way to do this is to do all the things above. Our bodies naturally find the right weight if we keep moving and feed ourselves the right food. If your BMI is greater than 25, we strongly recommend a referral to a weight management program. Please speak to us or your family physician about available programs. AVOID NICOTINE IN ALL FORMS This includes all tobacco products, whether chewed, smoked, vaped, or rubbed on the skin. Smoking cessation programs, which can make use of tobacco substitutes, medications to suppress cravings and behavior management, are available. Please contact your family physician about programs in your area. Referring Provider: SKYLAR PIÑA [[id number]] Allergies As of Date: 04/29/2017 (No Known Allergies) Date Reviewed: 04/29/2017 Reviewed by: Myra Strauss) Hope - Fully Assessed Reason for Visit: Recheck [92] Primary Visit Diagnosis:S/P AVR [Z95.2] Other Visit Diagnoses:SVT (supraventricular tachycardia) (HCC) [I47.1] Essential hypertension [I10] Order(s):BASIC METABOLIC PNL [SQBMP] Order #: [id number] FUTURE LIPID PANEL BASIC [SQLIPB] Order #: [id number] FUTURE CBC [SQCBC] Order #: [id number] FUTURE PROTHROMBIN TIME/PT [SQPT] Order #: [id number] STANDING MAGNESIUM BLD [SQMG1] Order #: [id number] FUTURE ECHO [035542] Order #: [id number]: 1 FUTURE Prescriptions as of 04/29/2017 Sig: LISINOPRIL 20 MG TABLET Take 1 tablet by mouth twice * ATORVASTATIN 40 MG TABLET Take 1 tablet by mouth once d* METOPROLOL TARTRATE 100 MG TA* Take 1 tablet by mouth twice * INSULIN DETEMIR (U-100) 100 U* Inject subcutaneously as dir* METFORMIN 500 MG TABLET Take 500 mg by mouth twice da* FLUOXETINE 20 MG CAPSULE Take 20 mg by mouth once lorene* MULTIVITAMIN ORAL Take 1 tablet by mouth once d* ASPIRIN 81 MG CHEWABLE TABLET Take 2 tablets by mouth once * MAGNESIUM HYDROXIDE 400 MG/5 * Take 30 mL by mouth once lorene* THERAPEUTIC MULTIVITAMIN TABL* Take 1 tablet by mouth daily * INSULIN GLARGINE (U-100) 100 * Inject 25 Units subcutaneousl* PEN NEEDLE, DIABETIC 32 GAUGE* 1 application three times amisha* INSULIN GLULISINE (U-100) 100* Inject 12 Units subcutaneousl* INSULIN GLULISINE (U-100) 100* Inject 6 Units subcutaneously* INSULIN GLULISINE (U-100) 100* Inject 8 Units subcutaneously* Problem List As Of Date 04/29/2017 Noted Resolved SUMMARY INVALID FOR* Priority: A More... Acute thoracic aortic dissection (HCC) [I71.01] INVALID FOR* Priority: Very Severe More... Primary hypertension [I10] INVALID FOR* Priority: C More... History of IVDU (intravenous drug user) [F19.90]INVALID FOR* More... Smoking greater than 10 pack years [F17.210] INVALID FOR* Priority: B More... History of depression [Z86.59] INVALID FOR* More... Type 2 diabetes mellitus with complication, wit*INVALID FOR* Priority: E More... More... Alcohol-induced chronic pancreatitis (HCC) [K86*INVALID FOR* More... History of ruptured aneurysm of thoracic aorta *INVALID FOR*03/10/2016 More... Acute headache [R51] INVALID FOR* More... History of alcohol abuse [Z87.898] INVALID FOR* More... History of dissection of thoracic aorta [Z86.79]INVALID FOR* More... Preop testing [Z01.818] INVALID FOR*03/20/2016 More... Cardiac insufficiency (HCC) [I50.9] INVALID FOR*03/26/2016 Priority: Severe More... Postoperative hypotension [I95.89] INVALID FOR*03/21/2016 Priority: B More... Pain, postoperative, acute [G89.18] INVALID FOR* Priority: D More... More... 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 Acute respiratory failure with hypoxia (HCC) [J*INVALID FOR*03/26/2016 Priority: B More... Fluid overload [E87.70] INVALID FOR*03/22/2016 Priority: F More... Hypoxemia [R09.02] INVALID FOR*03/26/2016 More... Discharge planning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 [facility] Laboratory [address] [facility] [place], [address] TROPONIN-I Collected: 04/13/2017 Status: F Source: [place] 6:24 PM [facility] REPOSITORY Order Comment: 'TROP' Serial specimen #1, #2, #3, or #4: 1 TYPE CODE TESTS RESULT OUT OF RANGE REFERENCE UNITS LAB L501.4010 <0.06 ng/mL Normal < 0.02 TROPONIN-I Result Comment: TROPONIN-I EXPECTED VALUES <0.05 NEGATIVE 0.06 - 0.59 AT RISK OF WA > OR = 0.60 SUGGEST WA Performed By: #### L500.4050, L501.2450, L501.4010 #### [facility] Laboratory [address] [place], [address] ALCOHOL, BLOOD Collected: 04/13/2017 Status: F Source: [place] (MEDICAL)-SERUM 6:24 PM [facility] REPOSITORY TYPE CODE TESTS RESULT OUT OF RANGE REFERENCE UNITS LAB L501.9100 mg/dL High alert SERUM 323.0 ETOH Result Comment: Critical Result(s) Called at: 20:21:18 04/13/2017 by: [facility]ain[facility] rom[facility] The serum:whole blood ethanol ratio is approximately 1.14 and varies slightly with hematocrit. Medical Alcohol reference interval and critical value in non-tolerant individuals; 50 - 100 Impairment 100 Intoxication 100 - 250 Severe Poisoning 250 - 400 Deep/possible fatal coma Performed By: #### L501.9100 #### [facility] [address] [facility] [place], [address] 12 LEAD ELECTROCARDIOGRAM Observed: 04/06/2017 Status: F Source: [place] 1:40 PM [facility] REPOSITORY [facility] Cardiovascular Services [address] [place] [address] 12 Lead EKG 04/01/17 2258 MR#: [id number] Acct: [id number] Name: ANALILIA TALLEY Rep #: [id number] : 1960 56 From: Ezra Alfredo MD Attending Dr: Valeriy Connell DO Status: DIS REI Ordering Dr: Brant Villanueva MD Date: 04/01/17 Location: [facility] Sex: M C Admitted: 04/01/17 Test Reason : REPEAT Blood Pressure : / mmHG Vent. Rate : 060 BPM Atrial Rate : 060 BPM P-R Int : 160 ms QRS Dur : 140 ms QT Int : 476 ms P-R-T Axes : 053 037 -86 degrees QTc Int : 476 ms Suspect unspecified pacemaker failure Normal sinus rhythm Right bundle branch block T wave abnormality, consider lateral ischemia Abnormal ECG Confirmed by EZRA ALFREDO ([id number]), waiter/waitress tourist class BENJAMÍN JAVIER ([id number]) on 04/06/2017 1:40:14 PM Referred By: WESTLEY Confirmed By:EZRA ALFREDO 04/06/17 1340 Date Ezra Alfredo MD CC: Brant Villanueva MD; Donna Pedroza MD Signed 12 LEAD ELECTROCARDIOGRAM Observed: 04/06/2017 Status: F Source: [place] 1:40 PM [facility] REPOSITORY [facility] Cardiovascular Services [address] [place] [address] 12 Lead EKG 04/01/17 2208 MR#: [id number] Acct: [id number] Name: ANALILIA TALLEY Rep #: [id number] : 1960 56 From: Ezra Alfredo MD Attending Dr: Valeriy Connell DO Status: DIS REI Ordering Dr: Brant Villanueva MD Date: 04/01/17 Location: [facility] Sex: M C Admitted: 04/01/17 Test Reason : ETOH Blood Pressure : / mmHG Vent. Rate : 060 BPM Atrial Rate : 060 BPM P-R Int : 194 ms QRS Dur : 142 ms QT Int : 452 ms P-R-T Axes : 084 019 167 degrees QTc Int : 452 ms Atrial-paced rhythm Right bundle branch block T wave abnormality, consider lateral ischemia Abnormal ECG Confirmed by EZRA ALFREDO ([id number]), waiter/waitress tourist class BENJAMÍN JAVIER ([id number]) on 04/06/2017 1:40:28 PM Referred By: WESTLEY Confirmed By:EZRA ALFREDO 04/06/17 1340 Date Ezra Alfredo MD CC: Brant Villanueva MD; Donna Pedroza MD Signed BEDSIDE GLUCOSE Collected: 04/02/2017 Status: F Source: [place] 12:07 PM [facility] REPOS[facility] TYPE CODE TESTS RESULT OUT OF REFERENCE UNITS RANGE LAB L501.080 70-110 mg/dL High alert BEDSIDE GLU > 500 Result Comment: Orders Followed MANAGEMENT OF PATIENT CARE PER NURSING PROTOCOL Performed By: #### L501.080 #### [facility] Point of Care [address] [place] [address] CONSULTATION Observed: 04/02/2017 Status: F Source: [place] 11:41 AM [facility] REPOS[facility]ORY [facility] Medical Records Department [address] [place] [address] Consultation 04/02/17 1134 MR#: [id number] Acct: [id number] Name: ANALILIA TALELY Rep #: [id number] : 1960 56 From: Ezra Alfredo MD PCP: Donna Pedroza MD Status: ADM REI Y Location: [place] [address]-1 Problem List (1) Altered mental status Status: Acute Qualifiers: Altered mental status type: unspecified Qualified Code(s): R41.82 - Altered mental status, unspecified (2) Pacemaker Status: Acute (3) Sick sinus syndrome Status: Chronic (4) HTN (hypertension) Status: Chronic Qualifiers: Hypertension type: essential hypertension Qualified Code(s): I10 - Essential (primary) hypertension (5) Aortic aneurysm Status: Chronic Qualifiers: Aortic location: unspecified (6) H/O aortic valve replacement Status: Chronic Reason for Consult Date of Consultation: 04/02/17 Reason for Consultation: Syncope, history of aortic valve replacement, history of a sending aortic root repair/replacement, permanent pacemaker, tobacco abuse, alcohol abuse. History of Present Illness: The patient is a 56 year old M, diabetic no previous known coronary disease, with a history of hypercholesterolemia and apparently underwent an aortic aneurysm repair in 2010 at the [facility]. In 2015 patient apparently required aortic valve replacement and received a mechanical valve from [facility] at that time. Patient apparently required redo ascending aortic root replacement and replacement of his mechanical valve for a bovine aortic valve at the [facility] in 2016. Subsequent to that the patient required permanent pacemaker placement for bradycardia at the time of his most recent open heart surgery. According to the patient is never had bypass of his coronary arteries or stents. He does smoke however and he was an alcoholic for approximately 10 years time. The patient quit alcohol about 20 months ago, but then restarted drinking this past weekend on the anniversary of his son's overdose. The patient was drinking 1-2/5 of vodka on a daily basis for the past several days. As best he can remember he blacked out and was found in his bathroom with blood sugars in the 30s. Patient does not remember anything or how he got to the hospital. He denied any chest pain symptoms. He denies any loss of bowel or bladder function. Upon arrival his EKG showed paced atrial rhythm with normal intrinsic ventricular response. No acute changes. Echocardiogram is pending. Pacer interrogation is pending. Prior to his reinitiation of drinking, patient denied any chest pain, angina, shortness of breath or dyspnea on exertion, fevers, chills. The patient follows with Dr. Moe camacho. 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 Psychiatric History: No pertinent psych hx - *Family History Maternal History Items: Dementia Paternal History Items: Heart Disease Smoking Status: Current every day smoker Review of Systems - Review of Systems General: Denies: Fever, Night Sweats, Fatigue Cardiovascular: Reports: Syncope. Denies: Chest Discomfort, Shortness of Breath, Orthopnea, PND, Peripheral Edema, Palpitations, Lightheadedness, Dizziness, Near Syncope Respiratory: Denies: Cough, Sputum Production, Hemoptysis Gastrointestinal: Denies: Hematemesis, Hematochezia, Melena Genitourinary: Denies: Dysuria, Hematuria Skin: Denies: Rash Subjectve: Patient completely stable, no acute distress, answers questions appropriately. Objective: Vital Signs Temp Pulse Resp BP Pulse Ox 98 F 87 16 168/99 H 100 04/02/17 10:00 04/02/17 11:02 04/02/17 10:00 04/02/17 10:04/02/17 10:00 Oxygen Flow Rate 3 Oxygen Delivery Method Room Air Weight: 148 lb 12.992 oz Body Mass Index (BMI) 20.8 Finger Stick Blood Glucose 119 Intake and Output for Last 24 Hours Intake Total 620 / 620 Output Total 525 / 525 Balance 95 / 95 General: Awake, Alert, Oriented x 3 HEENT: PERRL, EOMI, Sclera Non Icteric Neck: Supple, Good ROM, No Lymph Node Enlargement Lungs: Clear to auscultation Cardiovascular: Regular Rhythm, Normal S1, Normal S2, No Rubs, No Gallops Murmur Murmur: Grade 3/6, Crescendo-Decrescendo Vascular: No Carotid Bruits, Normal Femoral Pulses, Normal Radial Pulses, Normal Dorsalis Pedal Pulse, Normal Posterior Tibial Pulses Abdomen: Bowel Sounds Present, Soft, Non Tender, No HSM, No Organomegaly Extremities: No Cyanosis, No Clubbing, No edema Neurological: No Focal Motor or Sensory Deficit 04/02/17 04:00: WBC 6.9, RBC 4.21 L, Hgb 13.3, Hct 40.6, MCV 96.4 H, MCH 31.6, MCHC 32.8, RDW 14.7 H, RDW Differential 50.5 H, Plt Count 196, MPV 10.6 04/02/17 04:00: Sodium 144, Potassium 3.8, Chloride 111 H, Carbon Dioxide 25.0, Anion Gap 8, BUN 11, Creatinine 0.66 L, Est GFR (MDRD) Af Amer 162, Est GFR (MDRD) Non-Af 134, BUN/Creatinine Ratio 16.7, Glucose 92, Calcium 8.2 L 04/02/17 04:00: Troponin I 0.06 04/02/17 08:40: Troponin I 0.06 Rhythm: EKG: As above ECHO: Pending Stress Test: Cardiac Cath: PCI: CT Surgery: Holter monitor: EPS: PPM: Interrogation pending CXR: Chest CT Scan: Assessment/Plan 1. Blackout: The patient's blackout spell is most likely a result of his excessive alcohol use, and his low blood sugar. Patient has had no symptoms related to his heart valve replacement prior to his blackout spell. He has had no fevers or chills. Out of an abundance of caution I recommend interrogating his pacemaker and if that is okay and if his echocardiogram shows no signs of abnormalities on his bioprosthetic aortic valve, I would recommend discharge home. He can follow-up with Dr. Rosa. If however his echocardiogram shows any signs of endocarditis he may require further evaluation such as a ALBERT. I strongly recommended the patient to discontinue all tobacco and alcohol products, and he will attempt to do so. He will most likely require assistance with this given his history of alcoholism for greater than 10 years in the past. 2. Hypertension: Recommend restarting his metoprolol 100 mg p.o. twice daily, and lisinopril 20 mg a day. 3. Hyperlipidemia: Restart statin based medications. 4. Patient may be discharged home if the above checks out. He may follow-up with Dr. Rosa going forward. Code Visit Inpatient E AND M: [id number] Init Hosp L2 04/02/17 1141 <Electronically signed by Ezra Alfredo MD> Date Ezra Alfredo MD Cosigner Signature (if applicable): Date CC: Ezra Alfredo MD; Donna Pedroza MD Signed DISCHARGE SUMMARY Observed: 04/02/2017 Status: F Source: [place] 11:36 AM [facility] REPOSITORY [facility] Medical Records Department [address] [place] [address] Discharge Summary 04/02/17 1132 MR#: [id number] Acct: [id number] Name: ANALILIA TALLEY Rep #: [id number] : 1960 56 From: Valeriy Connell DO PCP: Donna Pedroza MD Status: ADM REI Y Location: [place] [address] Discharge Date and Diagnosis - Problem List Patient Problems: Active and Suspected Problems Altered mental status (Acute) Date of Admission: 04/01/17 Date of Discharge: 04/02/17 - Primary Discharge Diagnosis Active and Suspected Problems Altered mental status (Acute) - Secondary Discharge Diagnosis Chronic Problems 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 Mucosal thickening and a small amount of fluid of the left maxillary sinus. A few opacified air cells at the tip of the left mastoid process. Electronically Signed: Daphney Curtis MD at 22:38 EST , Service support , Cervical Spine CT 04/01/17 21:03 IMPRESSION: Straightening of the cervical spine without a fracture deformity. Mild degenerative disc and joint changes as stated above. Electronically Signed: Daphney Curtis MD at 22:36 EST , Service support , Chest X-Ray 04/01/17 21:09 IMPRESSION: Reduced inspiration without other acute findings or changes. Stable scar of the mid left lung. Normal cardiac size status post prior midline sternotomy with right atrial/ventricular pacemaker in good position. Electronically Signed: Daphney Curtis MD at 21:27 EST , Service support , Consultations 04/02/17 03:31 Consult: Mental Health/Crisis Routine Reason for consult?: Suicidal ideation/attempt Date Notified:: 04/02/17 Time notified:: 09:10 Operations: None Summary of Care Provided: The patient is a 56 year old M found unresponsive intoxicated. Patient was also found to be hypoglycemic as well. Patient was brought to the emergency room and eventually sobered up. Patient was monitored overnight and had no further issues. Addition the patient's stupor study want to kill himself. Patient has no recollection of illness and denies feeling suicidal. Patient apparently has done this before. Patient was seen by crisis who do not feel the patient is a threat for suicide. Patient has been advised to not drink at all. Patient otherwise feels well he feels remorseful for the events. Patient is on insulin with Levemir plus metformin. I have advised patient to discontinue the metformin because of the risk of further hypoglycemia. [] Discharge Diet: 1800 Calorie Control Diet Discharge Activity: Return to Normal Activity Return to work on:: 04/02/17 Call your doctor if you observe: Fever of 101 or Higher, - - syncope Home Medications: Medications to take at Discharge Insulin Detemir [Levemir] 25 units SC BID 06/20/16 Lisinopril [Zestril] 20 mg PO DAILY 06/20/16 Metoprolol Tartrate 100 mg PO BID 06/20/16 Acetaminophen [Tylenol Tablet] 500 mg PO Q6H PRN PRN tablet 04/02/17 Aspirin [Aspirin, Baby] 81 mg PO DAILY@0800 04/02/17 Atorvastatin Calcium [Lipitor] 40 mg PO QHS 04/02/17 Fluoxetine HCl [Prozac] 40 mg PO DAILY 04/02/17 Primary Care Physician: Donna Pedroza MD [Primary Care Provider] - Within 2 Weeks Please Follow Up With: 180 - counseling When: 1 week Disposition: Home Minutes spent on discharge:: 28 Patient Condition:: Good Meaningful Use Info Meaningful Use Diagnoses (Choose all that apply): None applicable Code Visit OBSV E AND M: [id number] Observation care discharge 04/02/17 1136 <Electronically signed by Valeriy Connell DO> Date Valeriy Connell DO Cosigner Signature (if applicable): Date CC: Valeriy Connell DO; Donna Pedroza MD Signed DISCHARGE INSTRUCTION Observed: 04/02/2017 Status: F Source: [place] 11:32 AM [facility] REPOSITORY [facility] Medical Records Department [address] [place] [place] [address] Instructions for Home/Discharge Instructions 04/02/17 1130 MR#: [id number] Acct: [id number] Name: ANALILIA TALLEY Rep #: [id number] : 1960 56 From: Valeriy Connell DO PCP: Donna Pedroza MD Status: ADM REI - Discharge Diagnoses Current Active Problems: Current Active and Chronic Problems Altered mental status (Acute) You will use the following diet at home:: Calorie/Carbohydrate Controlled (specify 1200, 1400, etc) - 1800 kcal/day, Cardiac Your food should be the consistency of: Regular Your liquids should be the consistency of: Regular/Thin Discharge Activity: Return to Normal Activity Return to work on:: 04/02/17 Call your doctor if you observe: Fever of 101 or Higher, - - syncope Allergies/Adverse Reactions: Allergies No Known Allergies Allergy (Verified 01/03/17 08:39) Medications to take at Discharge Insulin Detemir [Levemir] 25 units SC BID 06/20/16 Lisinopril [Zestril] 20 mg PO DAILY 06/20/16 Metoprolol Tartrate 100 mg PO BID 06/20/16 Acetaminophen [Tylenol Tablet] 500 mg PO Q6H PRN PRN tablet 04/02/17 Aspirin [Aspirin, Baby] 81 mg PO DAILY@0800 04/02/17 Atorvastatin Calcium [Lipitor] 40 mg PO QHS 04/02/17 Fluoxetine HCl [Prozac] 40 mg PO DAILY 04/02/17 Primary Care Physician: Donna Pedroza MD [Primary Care Provider] - Within 2 Weeks Please Follow Up With: 180 - counseling When: 1 week Proposed Discharge Date: 04/02/17 04/02/17 1132 <Electronically signed by Valeriy Connell DO> Date Valeriy Connell DO CC: Ezra Alfredo MD; Donna Pedroza MD TROPONIN-I Collected: 04/02/2017 Status: F Source: ANDRSE 8:40 AM [facility] REPOSITORY Order Comment: 'TROP' Serial specimen #1, #2, #3, or #4: 4 TYPE CODE TESTS RESULT OUT OF RANGE REFERENCE UNITS LAB L501.4010 <0.06 ng/mL Normal 0.06 TROPONIN-I Result Comment: TROPONIN-I EXPECTED VALUES <0.05 NEGATIVE 0.06 - 0.59 AT RISK OF [place] > OR = 0.60 SUGGEST WA Performed By: #### L501.4010 #### [facility] [address] [place], [place], [id number] BEDSIDE GLUCOSE Collected: 04/02/2017 Status: F Source: ANDRES 6:40 AM [facility] REPOSITORY TYPE CODE TESTS RESULT OUT OF REFERENCE UNITS RANGE LAB L501.080 70-110 mg/dL High BEDSIDE GLU 112 Result Comment: MANAGEMENT OF PATIENT CARE PER NURSING PROTOCOL Performed By: #### L501.080 #### [facility] Point of Care [address] [facility] [place], [place] [id number] CBC-COMPLETE BLOOD CNT Collected: 04/02/2017 Status: F Source: ANDRES NO DIFF 4:00 AM [facility] REPOSITORY TYPE CODE TESTS RESULT OUT OF RANGE REFERENCE UNITS LAB L100.1000 4.4-11.0 K/mm3 Normal WBC 6.9 LAB L100.1200 4.6-6.2 M/mm3 Low RBC 4.21 LAB L100.1300 13.0-16.5 g/dl Normal HGB 13.3 LAB L100.1400 40-54 % Normal HCT 40.6 LAB L100.1500 80-94 fL High MCV 96.4 LAB L100.1600 27.0-32.0 pg Normal MCH 31.6 LAB L100.1700 32-36 g/gl Normal MCHC 32.8 LAB L100.1810 11.6-14.6 % High RDW CV 14.7 LAB L100.1820 35.1-43.9 fl High RDW SD 50.5 LAB L100.1900 150-450 K/mm3 Normal PLT 196 LAB L100.2000 6.2-12.0 fl Normal MPV 10.6 Performed By: #### L100.0500 #### [facility] [address] [place], [place], [id number] BASIC METABOLIC Collected: 04/02/2017 Status: F Source: ANDRES PROFILE (BMP) 4:00 AM [facility] REPOSITORY TYPE CODE TESTS RESULT OUT OF RANGE REFERENCE UNITS LAB L501.0100 74-106 mg/dL Normal GLU 92 Result Comment: Please note revised GLUCOSE reference range effective 2017. LAB L501.1000 7-18 mg/dL Normal BUN 11 LAB L501.1100 0.70-1.30 mg/dL Low CREAT,SERUM 0.66 Result Comment: The validity of the calculated GFR AND GFRAA in patients over 70 years has not been determined. Clinical correlation is essential. LAB L501.1110 >60 mL/min Normal EST GFR 134 Result Comment: Non- GFR Calc LAB L501.1115 >60 mL/min Normal EST GFR - AA 162 Result Comment: GFR Calc LAB L501.1255 ml/min Normal Estimated CRCL 122.16 LAB L501.1300 10-20 RATIO BUN/CRE Normal 16.7 LAB L501.2200 8.5-10 mg/dL Low .1 CA 8.2 LAB L501.5300 136-14 mmol/L 5 NA Normal 144 LAB L501.5600 3.5-5. mmol/L 1 K Normal 3.8 LAB L501.5900 98-107 mmol/L High CL 111 LAB L501.6100 21.0-3 mmol/L 2.0 CO2 Normal 25.0 LAB L501.6200 5-15 GAP Normal 8 Performed By: #### L500.2500 #### [facility] [address] [facility] [place], [address] HISTORY AND PHYSICAL Observed: 04/02/2017 Status: F Source: [place] EXAM [facility] Medical Records Department [address] [place] [address] History and Physical 04/01/17 2322 MR#: [id number] Acct: [id number] Name: ANALILIA TALLEY Rep #: [id number] : 1960 56 From: Arielle Villa MD PCP: Tatiana FRANCISCO,Donna Status: ADM IN Location: [place] [address] Problem List (1) Altered mental status Status: Acute Qualifiers: Altered mental status type: unspecified Qualified Code(s): R41.82 - Altered mental status, unspecified (2) Sick sinus syndrome Status: Chronic (3) Diabetes mellitus, type II Status: Chronic Qualifiers: Diabetes mellitus complication status: without complication Diabetes mellitus intermediate designer insulin use: with chcf use Qualified Code(s): E11.9 - Type 2 diabetes mellitus without complications; Z79.4 - detention (current) use of insulin (4) HTN (hypertension) Status: Chronic Qualifiers: Hypertension type: essential hypertension Qualified Code(s): I10 - Essential (primary) hypertension (5) Tobacco use Status: Chronic History of Present Illness Date of Admission: 04/01/17 Chief Complaint: Loss of consciousness The patient is a 56 year old M with past medical history of alcohol use use disorder, type II DM, hypertension, status post bovine aortic valve replacement, aortic aneurysm surgical repair, nicotine use disorder, sick sinus syndrome with pacemaker insertion is being admitted with loss of consciousness. The EMS, they were called to the patient's home. Patient was found unresponsive in the bathroom floor. He lives with his father in a mobile home. His father states that the patient has been drinking vodka for most of the day. Blood sugar was 36 and he was treated with an amp of IV D50 by the EMS. Blood sugar was said to be 202. Patient subsequently became agitated and stated that he wanted to kill himself. He is reported by EMS reports to have lost his son to heroin overdose. In the ED, patient's vitals were stable, routine blood work was unremarkable. EKG shows some T-wave inversions in II, III, aVF, V5 and V6 he had complained of headache in the ED, was agitated, received Geodon IM, CT scan of the brain is negative. 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) Sick sinus syndrome (Chronic) Diabetes mellitus, type II (Chronic) HTN (hypertension) (Chronic) Tobacco use (Chronic) Aortic aneurysm (Chronic) H/O aortic valve replacement (Chronic) Allergies No Known Allergies Allergy (Verified 01/03/17 08:39) Home Medications: Ambulatory Orders Medication Instructions Recorded Insulin Detemir [Levemir] 30 units SC QHS 06/20/16 Lisinopril [Zestril] 20 mg PO DAILY 06/20/16 Metformin HCl [Glucophage] 1,000 mg PO BIDCM 06/20/16 Surgical History: - - Aortic aneurysm repair and aortic valve replacement (bovine) with total 3 separate surgies, most recent 04/2016 [facility], R inguinal hernia repair. Psychiatric History: No pertinent psych hx Smoking Status: Current every day smoker - *Family History Maternal History Items: Dementia Paternal History Items: Heart Disease Review of Systems Unable to obtain accurate/complete ROS d/t: Patient is currently sedated VTE Information - Inpt Only VTE Present on Admission: No VTE Pharm Prophylaxis ordered?: Yes Patient Problems: Active and Suspected Problems Altered mental status (Acute) - Physical Exam General: Cooperative, Lethargic - sedated HEENT: Atraumatic, PERRLA, EOMI, Normocephalic Oral: Moist Mucosa Neck: Supple Lungs: Clear to auscultation, Normal air movement Cardiovascular: Regular rate, No murmurs, - - Midsternal scar, right subclavian pacemaker scar Abdomen: Bowel Sounds Present, Soft, Non Tender, Non-Distended, - - laparoscopic scars on abdomen. Extremities: No edema Skin: No rashes Musculoskeletal: No Tenderness to Palpation of Joints or Extremities Lymphatic: No Cervical, Supraclavicular, or Inguinal Adenopathy Neurological: Motor Exam 5/5 strength throughout, - - Patient is sedated Psych/Mental Status: Normal Affect, Appropriate Vital Signs Temp Pulse Resp BP Pulse Ox 96.5 F L 78 14 102/76 98 04/01/17 20:19 04/01/17 23:00 04/01/17 23:00 04/01/17 23:00 04/01/17 23:00 Oxygen Flow Rate 2 Oxygen Delivery Method Nasal Cannula Weight: 80.6 kg Body Mass Index (BMI) 24.7 Finger Stick Blood Glucose 112 Laboratory Tests Past 24 Hrs POC Glucose POC Glucose 112 H 153 H Assessment/Plan Active and Suspected Problems Altered mental status (Acute) 56 year old M with past medical history of alcohol use use disorder, type II DM, hypertension, status post bovine aortic valve replacement, aortic aneurysm surgical repair, nicotine use disorder, sick sinus syndrome with pacemaker insertion is being admitted with loss of consciousness. 1. Altered Mental status/loss of consciousness secondary to alcohol overdose/hypoglycemia, admitting alcohol level is 194, urine toxicology has been negative. History of alcohol use disorder, vitals otherwise are stable. It is not clear if this was a suicide attempt. Plan: Admit to PCU, monitor on telemetry, CIWA protocol, treatment of hypoglycemia, consult mental health/crisis 2. Hypoglycemia in a known type II DM, insulin and metformin, both medications have been on hold, will continue to monitor with Accu-Cheks and insulin sliding scale and treat accordingly 3. Abnormal EKG new T-wave inversions in the anterior lateral leads, troponins 1 is negative, will trend troponins continue on aspirin, statin 4. Suicidal ideation, will consult Mental health, suicide precautions. 5. Hypertension, controlled 5. Type II DM, currently hypoglycemic, medications on hold, will continue to monitor blood sugar. 6. Nicotine use disorder, start on nicotine patch 7. Alcohol use disorder, on CIWA protocol, 7. DVT PPx - Lovenox SC Code Visit Inpatient E AND M: [id number] Init Hosp L3 04/02/17 0334 <Electronically signed by Arielle Villa MD> Date Arielle Villa MD Cosigner Signature: Date (if applicable) CC: Arielle Villa MD; Donna Pedroza MD Signed BEDSIDE GLUCOSE Collected: 04/02/2017 Status: F Source: ANDRES 1:42 AM [facility] REPOSITORY TYPE CODE TESTS RESULT OUT OF RANGE REFERENCE UNITS LAB L501.080 70-110 mg/dL Normal BEDSIDE GLU 95 Result Comment: MANAGEMENT OF PATIENT CARE PER NURSING PROTOCOL Performed By: #### L501.080 #### [facility] Point of Care [address] [place] [address] BEDSIDE GLUCOSE Collected: 04/02/2017 Status: F Source: ANDRES 12:07 AM [facility] REPOSITORY TYPE CODE TESTS RESULT OUT OF REFERENCE UNITS RANGE LAB L501.080 70-110 mg/dL High BEDSIDE GLU 119 Result Comment: MANAGEMENT OF PATIENT CARE PER NURSING PROTOCOL Performed By: #### L501.080 #### [facility] Point of Care [address] [place] [address] BEDSIDE GLUCOSE Collected: 04/01/2017 Status: F Source: [place] 11:37 PM [facility] REPOSITORY TYPE CODE TESTS RESULT OUT OF REFERENCE UNITS RANGE LAB L501.080 70-110 mg/dL Low BEDSIDE GLU 55 Result Comment: MANAGEMENT OF PATIENT CARE PER NURSING PROTOCOL Performed By: #### L501.080 #### [facility] Point of Care [address] [place] [address] TROPONIN-I Collected: 04/01/2017 Status: F Source: [place] 11:10 PM [facility] REPOSITORY Order Comment: 'TROP' Serial specimen #1, #2, #3, or #4: 2 TYPE CODE TESTS RESULT OUT OF RANGE REFERENCE UNITS LAB L501.4010 <0.06 ng/mL Normal 0.05 TROPONIN-I Result Comment: TROPONIN-I EXPECTED VALUES <0.05 NEGATIVE 0.06 - 0.59 AT RISK OF [place] > OR = 0.60 SUGGEST [place] Performed By: #### L501.4010 #### [facility] [address] [place], [address] EMERGENCY DEPARTMENT Observed: 04/01/2017 Status: F Source: [place] SUMMARY 10:59 PM [facility] REPOSITORY [facility] Medical Records Department [address] [place] [address] [place] [address] Emergency Department Summary 04/01/17 2255 MR#: [id number] Acct: [id number] Name: ANALILIA TALLEY Rep #: [id number] : 1960 56 From: Brant Villanueva MD PCP: oDnna Pedroza MD Status: REG ER - ER Visit Summary Date of Service: 04/01/17 Chief Complaint: Unresponsive History of Present Illness: The patient is a 56 M who presents with altered mental status. He was drinking vodka tonight. Father states he heard him collapse in the bathroom. EMS was called. He was unresponsive on their arrival and hypoglycemic with a blood sugar in the 30s. He was given D50 and his blood sugar improved to over 200. The patient complains of a headache currently and the father does believe he hit his head when he collapsed. Otherwise father reports he has had no recent illness. No fevers cough vomiting or diarrhea he is aware of. Physical Examination: Afebrile vitals are stable Moist mucous membranes Heart regular rate and rhythm Lungs are clear Abdomen soft nontender Patient appears to be clinically intoxicated. He has no focal or lateralizing neurological deficits. Test Results: EKG shows a paced rhythm with a right bundle branch block and T-wave inversions in V4 through V6 which are new when compared to prior EKG. laboratory studies notable for hemoglobin 12.7 and 50-100 RBCs in the urine. Troponin negative at 0.05. Urine drug screen negative. Alcohol 194. Emergency Department Course and Treatment: Nursing reported that the patient had several syncopal events here. He was intoxicated and repetitively trying to get out of bed. He would collapse backwards and require sternal rub. This was never witnessed by the physician. He was placed in soft restraints. The patient was refusing workup. Given his alcohol intoxication I did not feel he was able to safely make these decisions on his own so he was sedated with intramuscular Geodon. Imaging unremarkable. Given the patient's extensive cardiac history and EKG changes with syncope I did feel he would require further workup. I do not believe alcohol alone explains his syncopal events or sudden collapse at home. Patient will be admitted. Repeat EKG and repeat troponin pending at the time of this dictation. Treatment Plan: [] Disposition: Admit Impression: Syncope EKG changes Hypoglycemia Alcohol intoxication This note was generated with [employer] dictation software. It may contain incorrect words, spelling, and punctuation that were not noted in review of the chart prior to signing ED Disposition - Plan for ED Patient: Chief Complaint: ETOH Intox Referrals: Donna Pedroza MD [Primary Care Provider] - What to do if you have Problems For any increased pain, shortness of breath, bleeding, nausea or vomiting, chest pain, or any unexpected problems, contact your Primary Care Provider. Call [facility] ([phone]) or report to the closest Emergency Room. Call 911 if necessary. 04/01/17 2474 <Electronically signed by Brant Villanueva MD> Date Brant Villanueva MD Cosigner Signature (If Indicated): Date CC: Donna Pedroza MD URINE DRUG SCREEN Collected: 04/01/2017 Status: F Source: [place] (ANKUR) 9:40 PM [facility] REPOSITORY TYPE CODE TESTS RESULT OUT OF RANGE REFERENCE UNITS LAB L505.0075 TO BE Normal CONFIRMED Result Comment: CONFIRMATORY TESTING FOR ALL POSITIVE URINE DRUG SCREEN RESULTS WILL ONLY BE SENT OUT UPON PHYSICIAN ORDER. VISTA Urine Drug Screen methods provide only preliminary analytical test results. A more specific alternate chemical method must be used in order to obtain a confirmed analytical result. Gas chromatography/mass spectrometery (GC/MS) is the preferred confirmatory method. Clinical consideration and professional judgement should be applied to any drug of abuse test result, particularly when preliminary positive results are used. URINE TCA TESTING MUST BE ORDERED SEPARATELY. USE TEST MNEMONIC: [facility] LAB L505.5005 VISTA UDS PH 6 Normal LAB L505.5015 <1000 ng/mL AMPHETAMINES Normal NEGATIVE LAB L505.5025 < 200 ng/mL BARBITIURATES Normal NEGATIVE LAB L505.5035 < 200 ng/mL BENZODIAZIPINE Normal NEGATIVE LAB L505.5045 < 300 ng/mL COCAINE Normal NEGATIVE LAB L505.5055 < 500 ng/mL ECSTACY Normal NEGATIVE LAB L505.5065 < 300 ng/mL METHADONE Normal NEGATIVE LAB L505.5075 < 300 ng/mL OPIATES Normal NEGATIVE LAB L505.5085 < 25 ng/mL PCP Normal NEGATIVE LAB L505.5095 < 50 ng/mL THC Normal NEGATIVE Performed By: #### L505.5000 #### [facility] [address] [place], [address] URINALYSIS, COMPLETE Collected: 04/01/2017 Status: F Source: [place] 9:40 PM [facility] REPOSITORY Order Comment: Order Date: 04/01/17 How was Urine Obtained? ELECTROMECHANICAL EQUIPMENT ASSEMBLER TO SPECIFY TYPE CODE TESTS RESULT OUT OF RANGE REFERENCE UNITS LAB L400.3000 Yellow COLOR Normal Yellow LAB L400.3050 Clear Normal CLARITY Clear LAB L400.3200 Normal mg/dl High 50 GLUCOSE, UR LAB L400.3300 Negative mg/dL Normal BILIRUBIN URINE Negative LAB L400.3400 Negative mg/dl Normal KETONE UR Negative LAB L400.3465 1.002-1.030 Normal SP.GR. DIPSTX 1.010 LAB L400.3550 5.0 - 8.0 pH UR Normal 6.0 LAB L400.3600 Negative mg/dl PROT Normal DIPSTX Negative LAB L400.3700 Normal mg/dl Normal UROBILI Normal LAB L400.3750 Negative Normal NITRITE UR Negative LAB L400.3780 Negative /ul High OCCULT BLOOD-UR 250 LAB L400.3800 Negative /ul LEUK Normal ESTERASE Negative LAB L400.4050 0-5 /hpf WBC 0 Normal SEEN LAB L400.4100 0-5 /hpf Normal RBC-UA 50-100 SEEN LAB L400.4150 0-5 /hpf SQUAM 0 Normal EPI SEEN LAB L400.4300 None Seen /hpf 0 Normal BACTERIA SEEN LAB L400.4350 <or=2+ /hpf 0 Normal MUCUS, URINE SEEN Performed By: #### L400.0001 #### [facility] [address] [place], [address] BEDSIDE GLUCOSE Collected: 04/01/2017 Status: F Source: [place] 9:08 PM [facility] REPOSITORY TYPE CODE TESTS RESULT OUT OF REFERENCE UNITS RANGE LAB L501.080 70-110 mg/dL High BEDSIDE GLU 112 Result Comment: MANAGEMENT OF PATIENT CARE PER NURSING PROTOCOL Performed By: #### L501.080 #### [facility] Point of Care [address] [place] [address] CHEST 1 VIEW Observed: 04/01/2017 Status: F Source: [place] (PORTABLE) 9:05 PM [facility] REPOSITORY [facility] Imaging Services [address] [place] [address] Chest 1 View (Portable) MR#: [id number] Acct: [id number] Name: ANALILIA TALLEY Rep #: [id number] : 1960 M 56 From: Daphney Curtis MD PCP: Donna Pedroza MD Status: PRE ER Study: Chest 1 View (Portable) Date of Exam: 04/01/17 Exam# [id number] Ordering Dr: Brant Villanueva MD STUDY: X-RAY CHEST REASON FOR EXAM: Male, 56 years old. Low blood sugar. TECHNIQUE: Single AP portable view of the chest. COMPARISON: Prior chest radiograph of January 09, 2017. FINDINGS: Stable curvilinear scarring in the mid left lung. Limited inspiration without new consolidation or pleural effusion. Normal size heart. Status post prior midline sternotomy with right atrial/right ventricle pacemaker in good position. Normal visualized pulmonary arteries. There is atherosclerotic calcification of the aortic arch with tortuosity. Normal visualized ribs, clavicles, and shoulders. Surgical bartolome of the right axilla. RAD/Chest 1 View (Portable) IMPRESSION: Reduced inspiration without other acute findings or changes. Stable scar of the mid left lung. Normal cardiac size status post prior midline sternotomy with right atrial/ventricular pacemaker in good position. Electronically Signed: Daphney Curtis MD at 21:27 EST , Service support , CC: Brant Villanueva MD; Donna Pedroza MD Brake Coupler Dinkey: Signed SPINE CERVICAL Observed: 04/01/2017 Status: F Source: [place] WITHOUT CONTRAS 9:05 PM [facility] REPOSITORY [facility] Imaging Services [address] [place] [address] Spine Cervical without Contras MR#: [id number] Acct: [id number] Name: GERRIANALILIA Antonio Rep #: [id number] : 1960 M 56 From: Daphney Curtis MD PCP: Donna Pedroza MD Status: REG ER Study: Spine Cervical without Contras Date of Exam: 04/01/17 Exam# [id number] Ordering Dr: Brant Villanueva MD STUDY: CT CERVICAL SPINE WITHOUT CONTRAST REASON FOR EXAM: Male, 56 years old. Possible falling injury of the neck. RADIATION DOSAGE (If Supplied By Facility): CTDIvol = ( 20.93 ) mGy, DLP = ( 463.96 ) mGycm TECHNIQUE: High resolution transaxial imaging was performed without contrast material. Sagittal and coronal images were reconstructed. Individualized dose optimization techniques were used for this CT. COMPARISON: None FINDINGS: Normal craniovertebral junction. Normal anterior atlantoaxial articulation. Normal odontoid process. There is straightening of the normal cervical lordosis. Normal vertebral bodies and posterior osseous elements. C2-3: Mild disc narrowing without central stenosis or foraminal narrowing. C3-4: Mild disc narrowing and uncovertebral arthrosis. Negative for central stenosis. Minimal foraminal narrowing. C4-5: Mild disc narrowing and uncovertebral arthrosis. Negative for central or foraminal narrowing. C5-6: Disc narrowing and uncovertebral arthrosis. Negative for central stenosis. Mild bilateral foraminal narrowing. C6-7: Disc narrowing and uncovertebral arthrosis. Negative for central stenosis. Bilateral mild foraminal narrowing C7-T1: Normal endplates. Normal disc height and morphology. Normal central canal and intervertebral neuroforamina. Emphysematous changes of the upper lobes. Mild carotid artery calcifications. CT/Spine Cervical without Contras IMPRESSION: Straightening of the cervical spine without a fracture deformity. Mild degenerative disc and joint changes as stated above. Electronically Signed: Daphney Curtis MD at 22:36 EST , Service support , CC: Brant Villanueva MD; Donna Pedroza MD Brake Coupler Dinkey: Signed BRAIN/HEAD WITHOUT Observed: 04/01/2017 Status: F Source: [place] CONTRAST 9:05 PM [facility] REPOSITORY [facility] Imaging Services [address] [place] [address] Brain/Head without Contrast MR#: [id number] Acct: [id number] Name: ANALILIA TALLEY Rep #: [id number] : 1960 M 56 From: Daphney Curtis MD PCP: Donna Pedroza MD Status: REG ER Study: Brain/Head without Contrast Date of Exam: 04/01/17 Exam# [id number] Ordering Dr: Brant Villanueva MD STUDY: CT BRAIN WITHOUT CONTRAST REASON FOR EXAM: Male, 56 years old. Falling injury of the head. RADIATION DOSAGE (If Supplied By Facility): CTDIvol = ( 44.99 ) mGy, DLP = ( 779.24 ) mGycm TECHNIQUE: Transaxial CT imaging of the brain was performed without administration of intravenous contrast material. Individualized dose optimization techniques were used for this CT. COMPARISON: Prior head CT exam of November 29, 2016 FINDINGS: Normal soft tissue structures. Normal calvarium. Normal size ventricles and extra-axial spaces for the patient's age. Normal white matter tracts of the cerebral hemispheres. Normal basal ganglia and thalami. Normal brainstem. Normal cerebellum. There is no intracranial hemorrhage. There are no findings of an acute ischemic infarction. Moderate mucosal thickening at the base of the left maxillary sinus with a small amount of free fluid. Few opacified air cells at the tip of the left mastoid process CT/Brain/Head without Contrast IMPRESSION: Normal unenhanced CT scan of the brain. Mucosal thickening and a small amount of fluid of the left maxillary sinus. A few opacified air cells at the tip of the left mastoid process. Electronically Signed: Daphney Curtis MD at 22:38 EST , Service support , CC: Brant Villanueva MD; Donna Pedroza MD Brake Coupler Dinkey: Signed ALCOHOL, BLOOD Collected: 04/01/2017 Status: F Source: [place] (MEDICAL)-SERUM 8:25 PM [facility] REPOSITORY TYPE CODE TESTS RESULT OUT OF RANGE REFERENCE UNITS LAB L501.9100 mg/dL Normal SERUM 194.0 ETOH Result Comment: The serum:whole blood ethanol ratio is approximately 1.14 and varies slightly with hematocrit. Medical Alcohol reference interval and critical value in non-tolerant individuals; 50 - 100 Impairment 100 Intoxication 100 - 250 Severe Poisoning 250 - 400 Deep/possible fatal coma Performed By: #### L501.9100 #### [facility] [place], [address] COMPREHENSIVE METABOLIC Collected: 04/01/2017 Status: F Source: [facility] 8:25 PM [facility] REPOSITORY Order Comment: 'TROP' Serial specimen #1, #2, #3, or #4: 1 TYPE CODE TESTS RESULT OUT OF RANGE REFERENCE UNITS LAB L501.0100 74-106 mg/dL High GLU 159 Result Comment: Fasting Glucose result greater than or equal to 126 mg/dL suggests DIABETES MELLITUS per A.D.A. criteria. Please note revised GLUCOSE reference range effective 2017. LAB L501.1000 7-18 mg/dL Normal BUN 12 LAB L501.1100 0.70-1.30 mg/dL Normal CREAT,SERUM 0.74 Result Comment: The validity of the calculated GFR AND GFRAA in patients over 70 years has not been determined. Clinical correlation is essential. LAB L501.1110 >60 mL/min Normal EST GFR 116 Result Comment: Non- GFR Calc LAB L501.1115 >60 mL/min Normal EST GFR - AA 141 Result Comment: GFR Calc LAB L501.1255 ml/min Normal Estimated CRCL 121.54 LAB L501.1300 10-20 RATIO BUN/CRE Normal 16.1 LAB L501.1500 6.4-8. g/dL 2 T PROT Normal 6.8 LAB L501.1800 3.2-5. g/dL 0 ALB Normal 3.7 LAB L501.1950 2.2-4. g/dL 2 GLOB Normal 3.1 LAB L501.2000 0.9-2. RATIO 4 A/G Normal 1.2 LAB L501.2200 8.5-10 mg/dL Low .1 CA 8.0 LAB L501.4100 15-37 U/L AST Normal 34 LAB L501.4305 45-117 U/L High ALK P 123 LAB L501.4405 16-61 U/L ALT Normal 57 Result Comment: Please note revised ALT reference range effective 2017. LAB L501.4600 0.20-1.00 mg/dL Normal T BILI 0.20 LAB L501.5300 136-145 mmol/L Normal NA 141 LAB L501.5600 3.5-5.1 mmol/L Normal K 3.5 LAB L501.5900 98-107 mmol/L Normal CL 106 LAB L501.6100 21.0-32.0 mmol/L Normal CO2 27.0 LAB L501.6200 5-15 Normal GAP 8 Performed By: #### L500.4050, L501.4010 #### [facility] [address] [place], [address] TROPONIN-I Collected: 04/01/2017 Status: F Source: [place] 8:25 PM [facility] REPOSITORY Order Comment: 'TROP' Serial specimen #1, #2, #3, or #4: 1 TYPE CODE TESTS RESULT OUT OF RANGE REFERENCE UNITS LAB L501.4010 <0.06 ng/mL Normal 0.05 TROPONIN-I Result Comment: TROPONIN-I EXPECTED VALUES <0.05 NEGATIVE 0.06 - 0.59 AT RISK OF [place] > OR = 0.60 SUGGEST [place] Performed By: #### L500.4050, L501.4010 #### [facility] [address] [place], [place], [address] CBC W/DIFF, AUTOMATED Collected: 04/01/2017 Status: F Source: [place] 8:25 PM [facility] REPOSITORY TYPE CODE TESTS RESULT OUT OF RANGE REFERENCE UNITS LAB L100.1000 4.4-11.0 K/mm3 Normal WBC 10.7 LAB L100.1200 4.6-6.2 M/mm3 Low RBC 4.03 LAB L100.1300 13.0-16.5 g/dl Low HGB 12.7 LAB L100.1400 40-54 % Low HCT 38.7 LAB L100.1500 80-94 fL High MCV 96.0 LAB L100.1600 27.0-32.0 pg Normal MCH 31.5 LAB L100.1700 32-36 g/gl Normal MCHC 32.8 LAB L100.1810 11.6-14.6 % Normal RDW CV 14.4 LAB L100.1820 35.1-43.9 fl High RDW SD 48.9 LAB L100.1900 150-450 K/mm3 Normal PLT 221 LAB L100.2000 6.2-12.0 fl Normal MPV 10.9 LAB L100.2100 47-70 % High NEUT% 82.1 LAB L100.2200 19-41 % Low LY% 12.0 LAB L100.2300 0-10 % Normal MONO% 3.8 LAB L100.2400 0-5 % Normal EO% 1.2 LAB L100.2500 0-1 % Normal BASO% 0.6 LAB L100.2550 0.0-0.9 % Normal IM GRAN % 0.300 Result Comment: IG% - Immature Granulocytes (promyelocytes, myelocytes and metamyelocytes) > 1% indicates that a LEFT SHIFT is Present. LAB L100.2620 2.0-7.7 X10 3/uL High Absolute Neut 8.8 LAB L100.2720 0.83-4.51 X10 3/ul Normal Absolute Lymph 1.28 Performed By: #### L100.0100 #### [facility] [address] [place] [address], 745651 THYROID STIM HORMONE Collected: 04/01/2017 Status: F Source: [place] ([facility]) 8:25 PM [facility] REPOSITORY Order Comment: Comments: as add on test TYPE CODE TESTS RESULT OUT OF RANGE REFERENCE UNITS LAB L501.9520 0.358-3.74 uIU/mL Normal TSH 0.80 Performed By: #### L501.9520 #### [facility] [address] [place], [place], [address] BEDSIDE GLUCOSE Collected: 04/01/2017 Status: F Source: [place] 8:21 PM [facility] REPOSITORY TYPE CODE TESTS RESULT OUT OF REFERENCE UNITS RANGE LAB L501.080 70-110 mg/dL High BEDSIDE GLU 153 Result Comment: MANAGEMENT OF PATIENT CARE PER NURSING PROTOCOL Performed By: #### L501.080 #### [facility] Point of Care [address] [place] [address] OBSOLETE Observed: 03/31/2017 Status: COMPLETED Source: [place] 8:00 AM CLINIC OTHER CAMPUS REPOSITORY Procedure (AKEPD) ANALILIA TALLEY ([id number]) 1960 M Date Time Provider Department 03/31/17 8:00 AM REM DEVICE CK AKEPD During your visit today, we recorded the following information about you: Referring Provider: KATHY MONTERROSO [[id number]] Allergies As of Date: 03/31/2017 (No Known Allergies) Date Reviewed: 07/30/2016 Reviewed by: Earlene Samayoa LPN - Fully Assessed Reason for Visit: Permanent Pacemaker [1364] Visit Diagnosis:Bradycardia [R00.1] Prescriptions as of 03/31/2017 Sig: LISINOPRIL 20 MG TABLET Take 1 tablet by mouth twice * ATORVASTATIN 40 MG TABLET Take 1 tablet by mouth once d* METOPROLOL TARTRATE 100 MG TA* Take 1 tablet by mouth twice * INSULIN DETEMIR (U-100) 100 U* Inject subcutaneously as dir* METFORMIN 500 MG TABLET Take 500 mg by mouth twice da* FLUOXETINE 20 MG CAPSULE Take 20 mg by mouth once lorene* MULTIVITAMIN ORAL Take 1 tablet by mouth once d* ASPIRIN 81 MG CHEWABLE TABLET Take 2 tablets by mouth once * MAGNESIUM HYDROXIDE 400 MG/5 * Take 30 mL by mouth once lorene* THERAPEUTIC MULTIVITAMIN TABL* Take 1 tablet by mouth daily * INSULIN GLARGINE (U-100) 100 * Inject 25 Units subcutaneousl* PEN NEEDLE, DIABETIC 32 GAUGE* 1 application three times amisha* INSULIN GLULISINE (U-100) 100* Inject 12 Units subcutaneousl* INSULIN GLULISINE (U-100) 100* Inject 6 Units subcutaneously* INSULIN GLULISINE (U-100) 100* Inject 8 Units subcutaneously* Problem List As Of Date 03/31/2017 Noted Resolved SUMMARY INVALID FOR* Priority: A More... Acute thoracic aortic dissection (HCC) [I71.01] INVALID FOR* Priority: Very Severe More... Primary hypertension [I10] INVALID FOR* Priority: C More... History of IVDU (intravenous drug user) [F19.90]INVALID FOR* More... Smoking greater than 10 pack years [F17.210] INVALID FOR* Priority: B More... History of depression [Z86.59] INVALID FOR* More... Type 2 diabetes mellitus with complication, wit*INVALID FOR* Priority: E More... More... Alcohol-induced chronic pancreatitis (HCC) [K86*INVALID FOR* More... History of ruptured aneurysm of thoracic aorta *INVALID FOR*03/10/2016 More... Acute headache [R51] INVALID FOR* More... History of alcohol abuse [Z87.898] INVALID FOR* More... History of dissection of thoracic aorta [Z86.79]INVALID FOR* More... Preop testing [Z01.818] INVALID FOR*03/20/2016 More... Cardiac insufficiency (HCC) [I50.9] INVALID FOR*03/26/2016 Priority: Severe More... Postoperative hypotension [I95.89] INVALID FOR*03/21/2016 Priority: B More... Pain, postoperative, acute [G89.18] INVALID FOR* Priority: D More... More... 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 Acute respiratory failure with hypoxia (HCC) [J*INVALID FOR*03/26/2016 Priority: B More... Fluid overload [E87.70] INVALID FOR*03/22/2016 Priority: F More... Hypoxemia [R09.02] INVALID FOR*03/26/2016 More... Discharge planning issues [Z02.9] INVALID FOR* Priority: M More... 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] Pacemaker [Z95.0] Encounter Status:Closed by KELVIN GRIMALDO on 03/31/17 ALLERGIES ALLERGIES DATE TYPE / CODE NAME / CODE REACTION SEVERITY SOURCE 01/25/2018 Drug No Known Unknown [place] [facility] Allergy/416 Allergies/A02628 [facility] 929562(SNOM 0388(RXNORM) Repository ED CT) Drug NO KNOWN [facility] Class/29310 ALLERGIES Other [place] 1003(SNOMED Repository CT) NG/75508015 NO KNOWN [place] [address](SNOMED [facility] Health [facility] CT) Repository ENCOUNTERS ENCOUNTERS ADMIT/DISCHARGE ACCOUNT NUMBER ADMITTING ENCOUNTER LOCATION SOURCE CLASS 02/24/2018/02/28/19 [id number] Ambulatory BBuilding:[facility] Repository 01/25/2018/01/27/20 [id number] Emergency [address] ding:ED Repository 01/19/2018/01/20/20 [id number] Ambulatory BBuilding:RA [facility] Repository 01/18/2018/01/23/20 [id number] Ambulatory BBuilding:[facility] [place] [facility] Critical [facility] hospital Repository 01/18/2018 [id number] Ambulatory BBuilding:RA [facility] Repository 01/14/2018/01/15/20 [id number] Ambulatory [address] Other [place] Repository 01/14/2018/01/15/20 [id number] Ambulatory [facility] 18 [facility] MEDICAL Repository CENTERBuildi ng:AKEPD 12/27/2017/12/30/19 [id number] Ashley Alvarado Ambulatory [address] ding:RO0Tqxx Repository : LE551Ecm: 1 12/27/2017 [id number] Ashley Alvarado Ambulatory BMSBuilding: [place] Padmini BMS.[facility] Repository 12/27/2017 [id number] Christiano Ashley Ambulatory BMSBuilding: Andres Padmini BMS.[facility] Repository 12/27/2017 [id number] Ashley Alvarado Ambulatory BMSBuilding: Andres Padmini BMS.[facility] Repository 12/24/2017/12/25/19 [id number] Emergency [address] ding:ED Repository 11/09/2017/11/11/19 [id number] ZACHARY FRANCISCO., Ambulatory ABuilding:ME Michaela Coles MD. [address]ed: A Foundation Repository 11/01/[id number] [facility] MEDICAL Repository CENTERBuildi ng:CAGWS 09/05/2017/09/06/19 [id number] Emergency [address] ding:ED Repository 09/02/2017/09/06/19 [id number] [facility] Inpatient [place] 18 Ghasem Encounter [facility] ding:VN3Snwd Repository : DP940Ylp: 1 09/02/2017 [id number] [place], Ambulatory BMSBuilding: Andres Ghasem BMS.[facility] Repository 09/02/2017 [id number] [place], Ambulatory BMSBuilding: [place] Ghasem BMS.[facility] Repository 09/02/2017 [id number] [place], Ambulatory BMSBuilding: [place] Ghasem BMS.[facility] Repository 09/02/2017 [id number] [place], Ambulatory BMSBuilding: Andres Ghasem BMS.[facility] Repository 09/02/2017 [id number] Ambulatory BMSBuilding: Andres [facility] Repository 08/30/2017/09/01/19 [id number] Emergency [address] ding:ED Repository 08/06/2017/08/07/19 [id number] Emergency [address] ding:ED Repository 07/08/2017/07/09/19 [id number] Ambulatory [address] Repository 07/07/2017/07/09/19 [id number] Ambulatory [address] Repository 07/01/[id number] [facility] MEDICAL Repository CENTERBuildi ng:AKEPD 04/29/2017/04/30/19 [id number] Ambulatory [address] Repository 04/29/2017/04/30/19 [id number] Ambulatory [address] Other [place] Repository 04/29/2017/04/30/19 [id number] Ambulatory [address] MEDICAL Repository CENTERBuildi ng:CAGWS 04/25/2017/04/26/19 [id number] Emergency [address] ding:ED Repository 04/13/2017/04/15/19 [id number] Emergency [address] ding:ED Repository 04/01/2017/04/02/19 [id number] [place], Ambulatory Andres [address] ding:PCURoom Repository : [id number]: 1 04/01/2017 [id number] [place], Ambulatory BMSBuilding: [place] BMS.[facility] Repository 04/01/2017 [id number] [place], Ambulatory BMSBuilding: [place] BMS.[facility] Repository 04/01/2017 [id number] [place], Ambulatory BMSBuilding: [place] BMS.CF.[facility] Repository 03/31/2017 [id number] Ambulatory [facility] Repository 03/31/[id number] [facility] MEDICAL Repository CENTERBuildi ng:AKEPD 03/24/[id number] [facility] MEDICAL Repository CENTERBuildi ng:AKEPD PAYERS PAYERS ENCOUNTER GUARANTOR PAYER SUBSCRIBER SOURCE 02/24/2018 ANALILIA Alvarez Primary ANALILIA J Critical access hospitalB: Insurance:[place] DEL REAL [facility]: [facility] INSCOPolicy Number: [id number] Repository [place] [id number] [place], Date:2018-02-24 - [place] [address]Zsv: 2022-36-33Kdst [place] [address]Mcr: Name:[facility] Elda ()Tel: [phone]) [phone], [place] () () [address]WP: () [phone] 01/25/2018 ANALILIA Alvarez Primary Insurance:YARI ANALILIA [address]: [facility] [place] Number: [id number] Hospital, [id number] [place]ository [place] [address]Jfp: Date:5468-96-72[address]PHWURNYF, [place] () [address]YR: 01/25/2018 Secondary NOT GIVENUNK Andres Insurance:SELF PAY [facility] Number: Effective Repository Date:2018-01-25 01/19/2018 ANALILIA Alvarez [facility]: Insurance:Antonieta HORNERB: [facility] [place] INSCOPolicy Number: [id number] Repository [place] [id number] [place] [facility], Date:2018-01-19 - [place], [place] [address]Uud: [id number] [place] [address]Gep: Name:[facility] (HP)Tel: [phone], [place] (HP) (WP) [address]ZC: () [phone] 01/18/2018 ANALILIA Alvarez [facility]: Insurance:Antoineta CHRISTIANSON: [facility] [place] INSCOPolicy Number: [id number] Repository [place] [id number] [place] [facility], Date:2018-01-18 - [place], [place] [address]Ppr: [id number] [place] [address]Lmv: Name:[facility] Box (HP)Tel: [phone], [place] (HP) (WP) [phone]: () [phone] 01/18/2018 ANALILIA Alvarez [facility]: Insurance:Antonieta CHRISTIANSON: [facility] [place] INSCOPolicy Number: [id number] Repository [place] [id number] [place] [facility], Date:2018-01-18 [facility] [place] [place] [address]Afg: [id number] [place] [address]Vex: Name:[facility] ()Tel: [phone], [place] () (WP) [phone]: () [phone] 01/14/2018 ANALILIA [facility]ante [facility]: Insurance:[facility]: [facility] Number: [id number] Repository [place] [id number] [facility], Date: [place] [address]Oys: () 12/27/2017 ANALILIA Alvarez Primary ANALILIA [id number] Insurance:[facility]: [facility] [id number] Hospital, Number: [place]ository [place] [id number]: [id number] Date:5492-02-85QT BOX (HP) 964209BPPMANUN, [place] [address]LL: 12/27/2017 Secondary ANALILIA Campos Insurance:YARI CLIFFORDLA NENA: [facility] Number: [id number] Hospital [id number] Repository Date:9694-51-87WJ [address]VQPHJOIX, [place] [address]FQ: 12/27/2017 Tertiary JENNY Campos Insurance:SELF PAY [facility] Number: Effective Repository Date:2017-12-27 12/27/2017 ANALILIA Alvarez Primary ANALILIA Campos [id number] Insurance:[facility]: [facility] [id number] Hospital, Number: Repository [place] [address]Dfv: [phone] Date:7299-32-46NT BOX () 992817ZKJJIKGJsaint [place], [place] [address]JE: 12/27/2017 Secondary ANALILIAHERMANN Campos Insurance:YARI GT DARRINJANEENLA NENA: [facility] Number: [id number] Hospital [id number] Repository Date:8633-39-52GG [address]SWTPCNEZ, [place] [address]GS: 12/27/2017 Tertiary NOT GIVENUNK [place] Insurance:SELF PAY [facility] Number: Effective Repository Date:2017-12-27 12/27/2017 ANALILIA J Primary ANALILIA Antonio Campos [id number] Insurance:[facility]: [facility] [id number] Hospital, Number: Repository [place] [address]Syz: [id number] Date:7810-30-69RZ BOX () 128[address]WLEWLTZC, [place] [address]II: 12/27/2017 Secondary ANALILIA J [place] Insurance:YARI DEL REALNATIVIDAD CHRISTIANSON: [facility] Number: [id number] Hospital [id number] Repository Date:5470-85-02BO [address]AWVLINRN, [place] [address]UT: 12/27/2017 Tertiary NOT GIVENUNK And[place] Insurance:SELF PAY [facility] Number: Effective Repository Date:2017-12-27 12/27/2017 ANALILIA J Primary ANALILIA Campos [id number] Insurance:[facility]B: [facility] [id number] Hospital, Number: Repository [place] [address]Pli: [phone] Date:9981-91-49XP BOX (HP) 976319ZDZAWJKX, [place] [address]OZ: 12/27/2017 Secondary ANALILIA J [place] Insurance:YARI DEL REALNATIVIDAD HORNERB: [facility] Number: [id number] Hospital [id number] Repository Date:5230-08-75HH [facility] 634143WQFDDYOZ, [place] [address]SK: 12/27/2017 Tertiary NOT GIVENUNK And[place] Insurance:SELF PAY [facility] Number: Effective Repository Date:2017-12-27 12/24/2017 ANALILIA J Primary ANALILIA [place] [address] Insurance:[facility]: [facility] [place] [facility] [id number] Hospital, Number: Repository [place] [address]Csx: [id number] Date:0171-37-91EE [facility] () 944708FPKQWNER, [place] [address]GN: 12/24/2017 Secondary ANALILIA J [place] Insurance: GT HORNERB: [facility] Number: [id number] Hospital [id number] Repository Date:6660-66-83GI [facility] 610642NEZQBNBD, [place] [address]VW: 12/24/2017 Tertiary NOT GIVENUNK And[place] Insurance:SELF PAY [facility] Number: Effective Repository Date:2017-12-24 11/09/2017 ANALILIA J Primary ANALILIA On license of [facility]B: Insurance:Antonieta CHRISTIANSON: [facility] [place] [facility] Number: [id number] Repository [facility] [id number] [facility], Date:2017-11-09 - [place], [place] [address]Ull: 7918-96-15Ilkz [place] [address]Zhd: Name:BENCH MOLDERAlonzo Schroeder (HP)Tel: [phone]) [phone], [place] () (WP) [address]WP: (wp) [phone] 11/01/2017 ANALILIA Primary Insurance:J P ANALILIA [facility] [facility] Number: ZIMMERLYDOB: Health System [id number] Repository [place] Date: [place], [place] [address]Dzh: (TT) 09/05/2017 ANALILIA Alvarez Primary Insurance:YARI TALLEY34 [facility] ZIMHU HU [facility] HOSPITALLYDOB: Community [place] Number: [id number] Community Hospital [id number] Repository [place] [address]Tqz: Date:9002-04-46TM [address]HSRNLDHO, [place] () [address]AZ: 09/05/2017 Secondary NOT GIVENUNK [place] Insurance:SELF PAY [facility] Number: Effective Repository Date:2017-09-05 09/02/2017 ANALILIA Alvarez Primary Insurance:YARI TALLEY34 [facility] CenterLYD[facility]: Community [place] Number: [id number] Community Hospital [id number] Repository [place] [address]Tqi: Date:9041-97-55UD [address]HGUB[address]HG[address] [place] [address] () [address]LS: 09/02/2017 Secondary NOT GIVENUNK [place] Insurance:SELF PAY [facility] Number: Effective Repository Date:2017-09-01 09/02/2017 ANALILIA Alvarez Primary Insurance:YARI CLIFFORDLY34 [facility] Community [place] Number: [id number] Community Hospital [id number] Repository [place] [address]Mqd: Date:4740-13-59FQ [address]UVSDBUCD, [place] () [address]BO: 09/02/2017 Secondary NOT GIVENUNK [place] Insurance:SELF PAY [facility] Number: Effective Repository Date:2017-09-02 09/02/2017 ANALILIA Alvarez Primary Insurance:YARI LEDEZMA [facility] ZIMHU HU [facility] MEMORIAL HOSPITALLYDOB: Community [place] Number: [id number] Muir Concord Medical Center, [id number] Repository [place] [address]Ord: Date:2533-84-19XH [address]DNHEQHJR, [place] () [address]LA: 09/02/2017 Secondary NOT GIVENUNK [place] Insurance:SELF PAY [facility] Number: Effective Repository Date:2017-09-02 09/02/2017 ANALILIA Alvarez Primary Insurance:YARI LEDEZMA GT [facility] Community [place] Number: [id number] Muir Concord Medical Center, [id number] Repository [place] [address]Ger: Date:6348-23-19IB [address], [place] () [address]FN: 09/02/2017 Secondary NOT GIVENUNK And[place] Insurance:SELF PAY [facility] Number: Effective Repository Date:2017-09-02 09/02/2017 ANALILIA Alvarez Primary Insurance:YARI TALLEY34 [facility] CENTERLYDOB: Community [place] Number: [id number] Muir Concord Medical Center, [id number] Repository [place] [address]Fve: Date:7358-00-58EH [address], [place] () [address]TR: 09/02/2017 Secondary NOT GIVENUNK [place] Insurance:SELF PAY [facility] Number: Effective Repository Date:2017-09-02 09/02/2017 ANALILIA Alvarez Primary Insurance:YARI CLIFFORDLY34 GT [facility] HospitalLYDOB: Community [place] Number: [id number] Muir Concord Medical Center, [id number] Repository [place] [address]Old: Date:5331-79-15OQ [address] [place] [address] () [address]WD: 09/02/2017 Secondary NOT GIVENUNK And[place] Insurance:SELF PAY [facility] Number: Effective Repository Date:2017-09-02 08/30/2017 ANALILIA Alvarez Primary Insurance:YARI TALLEY34 [facility] SAURAVMERLYDOB: Community [place] Number: [id number] Community Hospital [id number] Repository [place] [address]Lno: Date:0204-64-77QE [address]BWJVUBPO, [place] () [address]LS: 08/30/2017 Secondary NOT GIVENUNK [place] Insurance:SELF PAY [facility] Number: Effective Repository Date:2017-08-30 08/06/2017 Analilia Alvarez Primary Insurance:YARI Cliffordly34 [facility] DarrinlyDOB: [facility] [place] Number: [id number] Valley Medical Center, [id number] Repository [place] [address]Csp: Date:5011-41-23EH [address]SMIAOZIE, [place] () [address]BM: 08/06/2017 Secondary NOT GIVENUNK [place] Insurance:SELF PAY [facility] Number: Effective Repository Date:2017-08-06 07/01/2017 ANALILIA Primary Insurance:Antonio CHRISTIANSON: Lyudmila Number: SAMMY: [facility] [id number] Repository [place] Date: [place], [place] [address]Cbc: () 04/29/2017 ANALILIA Primary Insurance:Antonio CHRISTIANSON: Lyudmila Number: ZIMMERLYDOB: [facility] [id number] Repository [place] Date: [place], [place] [address]Jzr: () 04/25/2017 Analilia Alvarez Primary Insurance:YARI Ledezma GT [facility]OSPITALSPolicy ZimmerlyDOB: Community [place] Number: [id number] Valley Medical Center, [id number] Repository [place] [address]Yab: Date:0062-33-95OY [address], [place] () [address]XZ: 04/25/2017 Secondary NOT GIVENUNK And[place] Insurance:SELF PAY [facility] Number: Effective Repository Date:2017-04-25 04/13/2017 Analilia Alvarez Primary Insurance:YARI Ledezma [facility]allyD[facility]: Community [place] Number: [id number] Valley Medical Center, [id number] Repository [place] [address]Tjk: Date:9825-55-33CY [address]GCTCWRAB[address] [place] [address] () [address]MD: 04/13/2017 Secondary NOT GIVENUNK And[place] Insurance:SELF PAY [facility] Number: Effective Repository Date:2017-04-13 04/01/2017 Analilia Alvarez Primary Insurance:YARI Ledezma [facility] HospitallyDOB: Community [place] Number: [id number] Valley Medical Center, [id number] [place]ository [place] [address]Tln: Date:[id number] [address], [place] () [address]VL: 04/01/2017 Secondary NOT GIVENUNK [place] Insurance:SELF PAY [facility] Number: Effective Repository Date:2017-04-01 04/01/2017 Analilia Alvarez Primary Insurance:YARI [facility]edezma [facility] [place] Number: [id number] [id number] [place]ository [place] [address]Nhj: Date:[id number], [place] () [address]CG: 04/01/2017 Secondary NOT GIVENUNK And[place] Insurance:SELF PAY [facility] Number: Effective Repository Date:2017-04-01 04/01/2017 Analilia Alvarez Primary Insurance:YARI Talley34 [facility] ZimmerlyDOB: [place] Number: [id number] [id number] [place]ository [place] [address]Djv: Date:[id number], [place] () [address]NH: 04/01/2017 Secondary NOT GIVENUNK Andres Insurance:SELF PAY [facility] Number: Effective Repository Date:2017-04-01 04/01/2017 Analilia Alvarez Primary Insurance:YARI Talley34 [facility] ZimmerlyDOB: [place] Number: [id number] [id number] [place]ository [place] [address]Mhp: Date:[id number] [address], [place] () [address]EE: 04/01/2017 Secondary NOT GIVENUNK Andres Insurance:SELF PAY [facility] Number: Effective Repository Date:2017-04-01 03/31/2017 ANALILIA Primary Insurance:Antonio CHRISTIANSON: Lyudmila Number: SIRIB: [facility] [id number] Repository [address] Date: [place], [place] [address]Sxi: () 03/24/2017 ANALILIA Primary Insurance:Antonio CHRISTIANSON: Lyudmila Number: [id number]: [facility] [id number] Repository [address] Date: [place], [place] [address]Uxh: ()
== END 2018-01-26 02:22 | disposition home or self-care (01) ==
LOC: ED 16:55
PROVIDERS: Emergency Provider Emergency Medicine
DX: F10.129 Alcohol abuse with intoxication, unspecified (principal); Y90.9 Presence of alcohol in blood, level not specified; F32.9 Major depressive disorder, single episode, unspecified; R45.851 Suicidal ideations; I25.10 Atherosclerotic heart disease of native coronary artery without angina pectoris; I11.0 Hypertensive heart disease with heart failure; I50.9 Heart failure, unspecified; Z79.899 Other long term (current) drug therapy
CPT/HCPCS: 36415; 80048; 80307; 80320; 82962; 85025; 96372; 99285; G0480; J3486

== ENCOUNTER 2018-04-08 17:55 | Emergency (ER) | payer OTHER, SELFPAY ==
[2018-01-25 15:33] VITALS: BMI 23.1
[2018-04-08 17:56] VITALS: BP 128/92; PULSE 60; RESP 18; TEMP 36; O2SAT 95; BMI 24.0
--- NOTE | 2018-04-08 18:19 | ED.RN ---
upon triaging pt, pt states he wants to be with his son who overdosed, he also stated his life doesn't matter. one on one observation initiated.
--- NOTE | 2018-04-08 18:24 | ED.VISSUMM ---
- ER Visit Summary Date of Service: 04/08/18 Chief Complaint: Intoxicated History of Present Illness: The patient is a 57 M history of alcohol abuse. Also history of CAD, MA, open heart surgery and pacemaker, diabetes and hypertension. Patient was at a gas station and was found decreased responsiveness and intoxicated and brought in the ER. He is also stated his son of an overdose and he wants to be with him. The concern is he suicidal. Physical Examination: Middle-aged male. He is intoxicated. He does respond there is very sleepy. H EENT exam unremarkable. Pupils round reactive light. Neck nontender no lymphadenopathy. No trauma. Lungs clear to auscultation bilaterally. Heart regular rhythm 3 of her systolic ejection murmur. He has a history of a murmur. Abdomen soft nontender normal bowel sounds no peritoneal signs. Extremities moves all 4. Calves nontender no edema. He does have track crabtree that appear to be old in both antecubital areas. Neurologically he is intoxicated. But he is arousable. He does answer questions. He does have slurred speech. Test Results: The mental health screening labs. CBC normal. White count 6. Hemoglobin 14. Electrolytes unremarkable his glucose is 350 consistent with his history of diabetes. Normal gap. Normal creatinine. Alcohol level is elevated to 78 consistent with acute alcohol intoxication. Urine tox screen negative. Emergency Department Course and Treatment: ED mental health evaluation and labs. Patient will need to remain in the emergency department overnight. Until his alcohol level comes down below legal intoxication. He will be turned over to the overnight physician. And then have crisis evaluation. Treatment Plan: Crisis evaluation Disposition: The patient doing well at 2355. Resting comfortably. He will be turned over to the overnight physician. Pt. will have a crisis evaluation in the morning. Impression: Acute alcohol intoxication Depressed History of CAD, MA, CABG and pacemaker. History of insulin-dependent diabetes This note was generated with [employer] dictation software. It may contain incorrect words, spelling, and punctuation that were not noted in review of the chart prior to signing ED Disposition - Plan for ED Patient: Referrals: Care Physician,No Primary [Primary Care Provider] -
--- NOTE | 2018-04-08 18:27 | ED.DCSUM_ITS ---
- ER Visit Summary Date of Service: 04/08/18 Chief Complaint: Intoxicated History of Present Illness: The patient is a 57 M history of alcohol abuse. Also history of CAD, NM, open heart surgery and pacemaker, diabetes and hypertension. Patient was at a gas station and was found decreased responsiveness and intoxicated and brought in the ER. He is also stated his son of an overdose and he wants to be with him. The concern is he suicidal. Physical Examination: Middle-aged male. He is intoxicated. He does respond there is very sleepy. H EENT exam unremarkable. Pupils round reactive light. Neck nontender no lymphadenopathy. No trauma. Lungs clear to auscultation juan aterally. Heart regular rhythm 3 of her systolic ejection murmur. He has a history of a murmur. Abdomen soft nontender normal bowel sounds no peritoneal signs. Extremities moves all 4. Calves nontender no edema. He does have track crabtree that appear to be old in both antecubital areas. Neurologically he is intoxicated. But he is arousable. He does answer questions. He does have slurred speech. Test Results: The mental health screening labs. CBC normal. White count 6. Hemoglobin 14. Electrolytes unremarkable his glucose is 350 consistent with his history of diabetes. Normal gap. Normal creatinine. Alcohol level is elevated to 78 consistent with acute alcohol intoxication. Urine tox screen negative. Emergency Department Course and Treatment: ED mental health evaluation and labs. Patient will need to remain in the emergency department overnight. Until his alcohol level comes down below legal intoxication. He will be turned over to the overnight physician. And then have crisis evaluation. Treatment Plan: Crisis evaluation Disposition: The patient doing well at 2355. Resting comfortably. He will be turned over to the overnight physician. Pt. will have a crisis evaluation in the morning. Impression: Acute alcohol intoxication Depressed History of CAD, NM, CABG and pacemaker. History of insulin-dependent diabetes This note was generated with [employer] dictation software. It may contain incorrect words, spelling, and punctuation that were not noted in review of the chart prior to signing ED Disposition - Plan for ED Patient: Referrals: Care Physician,No Primary [Primary Care Provider] -
[2018-04-08 18:37] LABS: Absolute Lymphocyte Count 1.42 X10^3/ul (0.83-4.51); Absolute Neutrophil Count 4.7 X10^3/uL (2.0-7.7); Basophil# 0.06 X10^3/uL; Basophil% 0.9 % (0-1); Eosinophil# 0.09 X10^3/uL; Eosinophils% 1.3 % (0-5); Hematocrit 41.6 % (40-54); Lymphocyte # 1.42 X10^3/ul (4.0); Lymphocyte % 21.2 % (19-41); Mean Corp Hgb Conc 33.7 g/gl (32-36); Mean Corpuscular Hgb 31.4 pg (27.0-32.0); Mean Corpuscular Volume 93.3 fL (80-94); Mean Platelet Vol. 10.8 fl (6.2-12.0); Monocyte# 0.39 X10^3/uL; Monocyte% 5.8 % (0-10); Neutrophil # 4.73 X10^3/uL (2.7-7.7); Neutrophil % 70.8 % (47-70); Platelet Count 186 K/mm3 (150-450); RBC Distribution Width CV 13.3 % (11.6-14.6); RBC Distribution Width SD 45.3 fl (35.1-43.9); Red Blood Count 4.46 M/mm3 (4.6-6.2); White Blood Count 6.7 K/mm3 (4.4-11.0)
[2018-04-08 18:38] LABS: POSITIVE COUNT NO; POSITIVE DIFFERENTIAL NO; POSITIVE MORPHOLOGY NO
[2018-04-08 18:40] LABS: Anion Gap 11 (5-15); BUN 10 mg/dL (7-18); BUN/Creat Ratio 8.2 RATIO (10-20); Calcium,Total 8.7 mg/dL (8.5-10.1); Chloride 109 mmol/L (98-107); Creatinine, Serum 1.22 mg/dL (0.70-1.30); EST Glomerular Filtration Rate 65 mL/min (>60); Est Glom Filt Rate - Afr Amer 79 mL/min (>60); Estimated Creatinine Clearance 70.64 ml/min; Glucose 350 mg/dL (74-106); Potassium 3.5 mmol/L (3.5-5.1); Sodium Level 142 mmol/L (136-145)
[2018-04-08 19:12] VITALS: BP 147/99; PULSE 60; RESP 18; O2SAT 94
[2018-04-08 19:20] LABS: Amphetamine Urine VISTA NEGATIVE (<1000 ng/mL); Barbiturate Urine VISTA NEGATIVE (< 200 ng/mL); Benzodiazepine Urine VISTA NEGATIVE (< 200 ng/mL); Cocaine Urine VISTA NEGATIVE (< 300 ng/mL); Ecstacy Urine VISTA NEGATIVE (< 500 ng/mL); Methadone Urine VISTA NEGATIVE (< 300 ng/mL); PCP Urine VISTA NEGATIVE (< 25 ng/mL); THC Urine VISTA NEGATIVE (< 50 ng/mL); Vista UDS pH Range 7
[2018-04-08 20:00] VITALS: BP 137/92; PULSE 60; RESP 22; O2SAT 96
[2018-04-08 21:15] VITALS: BP 128/83; PULSE 66; RESP 17; O2SAT 96
[2018-04-08 22:30] VITALS: BP 147/87; PULSE 60; RESP 20; O2SAT 95
[2018-04-08 23:30] VITALS: BP 125/75; PULSE 76; RESP 19; O2SAT 97
--- NOTE | 2018-04-08 23:56 | ED.DEP ---
ED Disposition - Plan for ED Patient: Disposition: Home or Assisted Living Instructions: ED Alcohol Intoxication, ED Depression Referrals: Counseling,Center [GROUP OF PHYSICIANS] - As soon as possible Additional Instructions: Over the counseling center for depression. Follow-up with the [facility] program for alcohol detox.
[2018-04-09] VITALS (11 sets, daily range): BP systolic 144–195; BP diastolic 82–111; PULSE 60–82; RESP 14–17; O2SAT 95–99
[2018-04-09] MEDS: Acetaminophen 500 MG Tablet 1000 MG PO (07:56)
== END 2018-04-09 13:37 | disposition home or self-care (01) ==
PROVIDERS: Emergency Provider Emergency Medicine
DX: F10.129 Alcohol abuse with intoxication, unspecified (principal); Y90.8 Blood alcohol level of 240 mg/100 ml or more; F32.9 Major depressive disorder, single episode, unspecified; I25.10 Atherosclerotic heart disease of native coronary artery without angina pectoris; E11.9 Type 2 diabetes mellitus without complications; I10 Essential (primary) hypertension; Z79.4 Long term (current) use of insulin; Z79.899 Other long term (current) drug therapy; Z72.0 Tobacco use; I25.2 Old myocardial infarction; Z95.0 Presence of cardiac pacemaker; Z95.1 Presence of aortocoronary bypass graft; Z87.442 Personal history of urinary calculi
CPT/HCPCS: 80048; 80307; 80320; 85025; 99284; J7030; A4216; G0480

== ENCOUNTER 2018-06-07 10:30 | Emergency (ER) | payer OTHER, SELFPAY ==
[2018-06-07 10:31] VITALS: BP 223/118; PULSE 60; RESP 20; TEMP 36.6; O2SAT 98; BMI 23.7
[2018-06-07 10:37] VITALS: BP 208/114; PULSE 60; RESP 18; O2SAT 99
--- NOTE | 2018-06-07 10:47 | RAD_ITS ---
STUDY: X-RAY CHEST REASON FOR EXAM: Male, 57 years old. Shortness of breath. TECHNIQUE: PA and lateral views of the chest. COMPARISON: Comparison is made with prior study December 27, 2017. FINDINGS: EKG electrodes are seen. Hyperinflation. Stable increased linear markings in the lingular segment of the left upper lobe in keeping with the scarring. There is no demonstrated pleural abnormality. Sternal cerclage wires are present from a prior sternotomy. The patient is status post aortic valve replacement. A left-sided dual-chamber pacemaker is seen. Normal mediastinum and akbar. Normal visualized pulmonary arteries. There is atherosclerotic tortuosity of the aortic arch and descending thoracic aorta. Normal visualized thoracic spine. Stable nondisplaced fracture of the anterior aspect of the left ninth rib. Large amount of fecal material is seen in the colon. RAD/Chest PA and Lateral IMPRESSION: Hyperinflation. Stable scarring in the lingular segment of the left upper lobe. Electronically Signed: Carlos Campos, at 12:37 EDT , Service support ,
--- NOTE | 2018-06-07 10:47 | EKG12_ITS ---
Test Reason : Blood Pressure : / mmHG Vent. Rate : 060 BPM Atrial Rate : 060 BPM P-R Int : 204 ms QRS Dur : 146 ms QT Int : 438 ms P-R-T Axes : 064 -14 114 degrees QTc Int : 438 ms Atrial-paced rhythm Right bundle branch block T wave abnormality, consider lateral ischemia Abnormal ECG Confirmed by MIMI FRANCISCO, TRISH ([id number]), photography editor MAILE BALDWIN ([id number]) on 06/09/2018 9:30:02 AM Referred By: ELINA Confirmed By:TRISH LE MD
--- NOTE | 2018-06-07 10:53 | ED.DCSUM_ITS ---
History of Present Illness Chief Complaint: Chest Pain Detail of Chief Complaint: Palpitations and skipped beat Wednesday and new murmur Informant: Patient Onset: - - Wednesday patient complained of palpitations skipped beat. He states his memory care provider sent to ER because of abnormal EKG and new heart murmur. Context: Sudden Onset - Output patient started abruptly at rest on Wednesday and lasted approximately 12 hours. Timing: Intermittent - 12 hours in duration. Quality: Palpitations and skipped beat Location: Chest Current Severity: - - Presently no symptoms Maximum Severity: Moderate Worsened by: Nothing Relieved by: nothing Associated Symptoms: Patient reports dyspnea on exertion for 1 month. Narrative: Patient is a middle-age male with history of three-vessel CABG, aortic valve replacement with redo and repair of aortic aneurysm. Repair of aortic valve and redo of aortic aneurysm 2 years ago. He states he had a pacemaker placed 1 year ago. He is uncertain why he had a pacemaker placed. He is on no anticoagulant. His aortic valve is bovine. He denies chest pain with exertion. He does report lightheadedness with standing quickly and dyspnea with exertion. He denies symptoms of claudication. He does report he had hair on his legs when younger. 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 (2) Aortic aneurysm Status: Chronic (3) Diabetes mellitus, type II Status: Chronic (4) H/O aortic valve replacement Status: Chronic (5) HTN (hypertension) Status: Chronic (6) Pacemaker Status: Chronic (7) Sick sinus syndrome Status: Chronic (8) Tobacco use Status: Chronic Past Medical History - Allergies and Home Meds Allergies/Adverse Reactions: Allergies No Known Allergies Allergy (Verified 06/07/18 10:30) Primary Care Physician: Care Physician,No Primary [Primary Care Provider] - Prior records reviewed: Yes Surgical History: - - Aortic aneurysm repair and aortic valve replacement (jemima manrique) with total 3 separate surgies, most recent 04/2016 [facility], R inguinal hernia repair. Lives: Alone Smoking Status: Current every day smoker Alcohol: None Drugs: None - Family History Maternal Family History: Reports: Dementia Paternal Family History: Reports: Heart Disease Review of Systems General: Denies: Chills, Fever, Sweats Eyes: Denies: Visual changes - bilaterally, Blurred Vision - bilaterally, Diplopia ENT: Denies: Rhinorrhea, Sore throat Cardiovascular: Reports: Palpitations, Heart racing, - - And skipped beats. Denies: Chest pain Respiratory: Reports: Cough - Cough is chronic, Dyspnea on exertion. Denies: Dyspnea, Orthopnea, Paroxysmal nocturnal dyspnea Gastrointestinal: Denies: Abdominal pain, Nausea, Vomiting, Diarrhea, Melena, Hematochezia Genitourinary: Denies: Dysuria, Hematuria, Frequency Musculoskeletal: Denies: Myalgias, Arthralgias, Neck pain, Back pain, Extremity Pain Skin: Denies: Rash, Wounds Neurological: Denies: Headache, Weakness, Numbness Hematologic: Denies: Easy bruising, Easy bleeding Allergy: Denies: Uticaria, Swelling of the mouth Physical Exam Vital Signs/Narrative: Vital Signs Temp Pulse Resp BP Pulse Ox 06/07/18 10:37 60 18 208/114 H 99 06/07/18 10:31 97.8 F 60 20 H 223/118 H 98 General: Well nourished, Well developed, No Acute Distress Head: Normocephalic, Atraumatic Eyes: Perrl, EOMI. Negative for: Pale conjunctiva, Scleral icterus, - ENT: Moist mucous membranes, No rhinorrhea Neck: Supple, Nontender Cardiovascular: Regular rate, Regular rhythm, Normal S1, Normal S2 - Prominent S2, Murmur - Grade 2 systolic crescendo and decrescendo in murmur heard best over the aortic listening area. Respiratory: No distress, CTA bilaterally, Chest nontender Abdomen: Soft, Nontender, Nondistended, Normal bowel sounds Back: Nontender, Normal Inspection. Negative for: CVA tenderness Extremities: Nontender, No edema, - - there is no asymmetry, swelling, discoloration, leg vein distention, palpable cords or tenderness along the distribution of the deep venous system. Patient has stigmata of peripheral arterial disease. PT pulse was not palpable. Skin: Normal color, No rash Neurological: Alert, Oriented x3, Cranial nerves II-XII grossly intact, Normal Strength, Normal Sensation, Normal Gait Psychological: Normal affect, Normal Mood Diagnostic/Tx/Re-eval Chest X-Ray - ED: 2 View, Read by ED Physician, Normal, Heart, Mediastinum, Bony Structures, No Acute Disease, - - Dual-chamber pacemaker noted. Sternal wires noted. Aortic valve replacement noted. Discoid atelectasis on left unchanged from December 27, 2017. Pulmonary vasculature in the hilum is prominent and unchanged. 06/07/18 10:47 Chest PA and Lateral [RAD] Stat Laboratory Results 06/07/18 06/07/18 11:00 11:00 WBC 5.2 RBC 4.25 L Hgb 13.1 Hct 37.4 L MCV 88.0 MCH 30.8 MCHC 35.0 RDW 12.3 RDW Differential 39.4 Plt Count 175 MPV 10.3 Sodium 130 L Potassium 4.6 Chloride 100 Carbon Dioxide 24.0 Anion Gap 6 BUN 21 H Creatinine 1.20 Estim Creat Clear Calc 74.08 Est GFR (MDRD) Af Amer 81 Est GFR (MDRD) Non-Af 67 BUN/Creatinine Ratio 17.5 Glucose 475 H* Calcium 8.7 Troponin I < 0.015 - Medical Decision Making Review of prior records indicates patient murmur is not new. EKG compared to EKG obtained December 27 is unchanged. To evaluate patient's symptoms of palpitations dyspnea will obtain EKG, chest x-ray to assess for pulmonary etiology, electrolytes and troponin. If work-up is unremarkable will refer to Dr. Bey who is on for cardiology. Patient will need an cardiac echo to e valuate murmur. Since the murmur was noted April 08, [address] Lomeli during his last ER visit emergent work-up is not indicated. Since EKG is unchanged from December and his work-up was unremarkable and the fact that the murmur was noted April 08 he was referred to Dr. Bey. Dr. Bey was made aware patients and would like patient to call and will have outpatient work-up. ED Disposition - Plan for ED Patient: Disposition: Home or Assisted Living Diagnosis: Heart palpitations, H/O aortic valve replacement, HTN (hypertension), Diabetes mellitus, type II, Aortic ejection murmur Referrals: Care Physician,No Primary [Primary Care Provider] - Jacky Bey MD [STAFF PHYSICIAN] - 3-5 Days Additional Instructions: Called Dr. Bey's office today for outpatient follow-up and echo.
[2018-06-07 11:12] LABS: Hematocrit 37.4 % (40-54); Hemoglobin 13.1 g/dl (13.0-16.5); Mean Corpuscular Hgb 30.8 pg (27.0-32.0); Mean Platelet Vol. 10.3 fl (6.2-12.0); Platelet Count 175 K/mm3 (150-450); RBC Distribution Width CV 12.3 % (11.6-14.6); RBC Distribution Width SD 39.4 fl (35.1-43.9); Red Blood Count 4.25 M/mm3 (4.6-6.2); White Blood Count 5.2 K/mm3 (4.4-11.0)
[2018-06-07 11:13] LABS: Scan Indicated on CBC? Y/N NO
[2018-06-07 11:42] LABS: Anion Gap 6 (5-15); BUN 21 mg/dL (7-18); BUN/Creat Ratio 17.5 RATIO (10-20); Calcium,Total 8.7 mg/dL (8.5-10.1); Chloride 100 mmol/L (98-107); EST Glomerular Filtration Rate 67 mL/min (>60); Est Glom Filt Rate - Afr Amer 81 mL/min (>60); Estimated Creatinine Clearance 74.08 ml/min; Potassium 4.6 mmol/L (3.5-5.1); Sodium Level 130 mmol/L (136-145)
[2018-06-07 11:43] LABS: Glucose 475 mg/dL (74-106)
[2018-06-07 12:02] VITALS: BP 196/109; PULSE 60; RESP 18; O2SAT 97
--- NOTE | 2018-06-07 12:19 | ED.DEP ---
ED Disposition - Plan for ED Patient: Disposition: Home or Assisted Living Diagnosis: Heart palpitations, H/O aortic valve replacement, HTN (hypertension), Diabetes mellitus, type II, Aortic ejection murmur Instructions: ED Palpitations Referrals: Jacky Bey MD [STAFF PHYSICIAN] - 3-5 Days Care Physician,No Primary [Primary Care Provider] - Additional Instructions: Called Dr. Bey's office today for outpatient follow-up and echo.
[2018-06-07] MEDS: Insulin Lispro 100 UNIT/ML INSULN.PEN 8 UNIT SC (12:41)
== END 2018-06-07 12:42 | disposition home or self-care (01) ==
PROVIDERS: Emergency Provider Emergency Medicine
DX: R00.2 Palpitations (principal); Z95.2 Presence of prosthetic heart valve; I10 Essential (primary) hypertension; E11.9 Type 2 diabetes mellitus without complications; R01.1 Cardiac murmur, unspecified; R06.09 Other forms of dyspnea; R05 Cough; J98.11 Atelectasis; I49.5 Sick sinus syndrome; Z86.79 Personal history of other diseases of the circulatory system; Z95.0 Presence of cardiac pacemaker; Z95.1 Presence of aortocoronary bypass graft; Z79.4 Long term (current) use of insulin; Z79.899 Other long term (current) drug therapy; F10.21 Alcohol dependence, in remission; F17.200 Nicotine dependence, unspecified, uncomplicated
CPT/HCPCS: 71046; 80048; 84484; 85027; 93005; 96372; 99283; A4216

== ENCOUNTER → 2018-06-29 | Outpatient (CLI) | payer OTHER, SELFPAY ==
[2018-06-13 08:51] VITALS: BMI 23.7
--- NOTE | 2018-06-29 07:34 | ECHOD_ITS ---
Reason For Study: Valve Replacement Eval Procedure This was a 2D Doppler, Color Flow transthoracic echocardiogram. The exam was of adequate technical quality. Exam performed in department. Left Ventricle Normal LV size. Moderate concentric left ventricular hypertrophy. Left ventricular systolic function is normal. The estimated ejection fraction is 55 %. Transmitral doppler flow suggestive of impaired relaxation of left ventricle. No regional wall motion abnormalities noted. Right Ventricle Normal RV size. ICD or pacer leads identified within the right ventricle. Normal systolic function. Atria The left atrium is mildly enlarged. Normal right atrium. ICD or pacer leads identified within the right atrium. No doppler evidence for ASD. Mitral Valve There is no mitral annular calcification. Normal mitral valve. Mild (1+) mitral valve insufficiency. Tricuspid Valve Normal tricuspid valve. Trivial tricuspid valve insufficiency. Right ventricular systolic pressure estimated to be 25 mmHg. Aortic Valve Stable appearing bioprosthetic aortic valve apparatus. Pulmonic Valve The pulmonic valve is not well visualized. Mild (1+) pulmonic valve insufficiency. Great Vessels Normal sized aortic root. Pericardium/Pleural No pericardial effusion. MMode/2D Measurements & Calculations LVIDd: 4.6 cm IVSd: 1.5 cm Ao root diam: 3.5 cm LVIDs: 3.4 cm LVPWd: 1.5 cm RVDd: 3.3 cm FS: 26.1 % LAV(MOD-bp): 61.7 ml LA A4 area: 20.4 cm2 LA dimension(2D): 5.0 cm LAV(MOD-bp) Indexed: 31.6 ml/m2 LAV(MOD-sp2): 59.5 ml LAV(MOD-sp4): 59.7 ml RA A4 area: 14.2 cm2 Time Measurements MV dec time: 0.32 sec Doppler Measurements & Calculations MV E max natan: 45.2 cm/sec Lat Peak E' Natan: 9.2 cm/sec Med Peak E' Natan: 4.1 cm/sec MV A max natan: 77.7 cm/sec E/E' lat: 4.9 E/E' med: 10.9 MV E/A: 0.58 Ao V2 max: 213.5 cm/sec LV V1 max: 105.3 cm/sec PA V2 max: 82.2 cm/sec Ao max P.2 mmHg LV V1 max P.4 mmHg Ao V2 mean: 155.3 cm/sec LV V1 mean P.6 mmHg Ao mean P.6 mmHg LV V1 mean: 77.6 cm/sec Ao V2 VTI: 43.0 cm LV V1 VTI: 22.2 cm TR max natan: 233.5 cm/sec TR max P.8 mmHg Interpretation Summary Left ventricular systolic function is normal. The estimated ejection fraction is 55 %. Moderate concentric left ventricular hypertrophy. The left atrium is mildly enlarged. Mild (1+) mitral valve insufficiency. Trivial tricuspid valve insufficiency. Stable appearing bioprosthetic aortic valve apparatus. Mild (1+) pulmonic valve insufficiency. Right ventricular systolic pressure estimated to be 25 mmHg. Transmitral doppler flow suggestive of impaired relaxation of left ventricle ICD or pacer leads identified within the right atrium ICD or pacer leads identified within the right ventricle. Ordering Physician: Jacky Bey Referring Physician: Dk Pathak Performed By: Yessica Peres RDCS, RVT
--- NOTE | 2018-06-29 14:05 | STRESSREP_ITS ---
Stress Test Report Date: 06-29-18 Procedure: Pharmacologic stress nuclear imaging study Indications: Chest pain; status post aortic valve replacement; status post PPM; status post abdominal aortic aneurysm repair Consent: Per the patient Procedure: The patient underwent pharmacologic (Regadenoson) evaluation with a peak heart rate of 60 beats per minute (36 %predicted maximal heart rate) and a peak blood pressure of 148/110 mmHg. The baseline ECG demonstrated sinus rhythm; right bundle branch block pattern. The peak pharmacologic ECG demonstrated sinus rhythm; nonspecific ST segment abnormality/depression (leads II, III, aVF, and V6). There were no cardiac dysrhythmias pretest, during pharmacologic infusion, or recovery. There was no complaint of chest discomfort during pharmacologic infusion or recovery. The examination was discontinued secondary to completion of protocol. Impression: 1. Pharmacologic (Regadenoson) evaluation 2. Peak pharmacologic ECG with continued right bundle branch block pattern with nonspecific ST segment abnormality/depression (leads II, III, aVF, and V6). 3. There were no cardiac dysrhythmias pretest, during pharmacologic infusion, or recovery. 4. Nuclear images pending Myocardial perfusion imaging study: Technique: The patient was injected with 11.7 millicuries of technetium 99m Cardiolite and subsequently rest SPECT Cardiolite nuclear imaging was obtained in the horizontal long, vertical long, and short axis views. The patient underwent pharmacologic (Regadenoson) evaluation with a peak heart rate of 60 beats per minute (36 % percent predicted maximal heart rate) and a peak blood pressure of 148/110 mmHg. The patient was injected with 32.3 millicuries of technetium 99m Cardiolite and subsequently stress SPECT Cardiolite nuclear imaging was obtained in the horizontal long, vertical long, and short axis views. A gated Cardiolite study at peak stress was obtained. Interpretation: Rest and stress SPECT Cardiolite nuclear imaging status post realignment, normalization, and attenuation correction demonstrate relative uniform tracer uptake and myocardial perfusion appearing within normal limits. There is end systolic thickening and brightening. The gated Cardiolite study demonstrates myocardial thickening and inward wall motion. The reported LVEF is 53 %. Impression: 1. Rest and stress SPECT Cardiolite nuclear imaging demonstrate relative uniform tracer uptake and myocardial perfusion appearing within normal limits. 2. The gated Cardiolite study reports an LVEF of 53 %. This note was generated with [employer] software. It may contain incorrect words, spelling, and punctuation that were not noted in checking the note before signing.
== END | disposition home or self-care (01) ==
LOC: CVS 07:33
PROVIDERS: Family Provider Nurse Practitioner Family; PCP Nurse Practitioner Family; Referring Provider Internal Medicine Cardiovascular Disease
DX: I49.5 Sick sinus syndrome (principal); I47.1 Supraventricular tachycardia; Z95.0 Presence of cardiac pacemaker; E78.00 Pure hypercholesterolemia, unspecified; I10 Essential (primary) hypertension; R07.9 Chest pain, unspecified; Z86.79 Personal history of other diseases of the circulatory system; Z95.3 Presence of xenogenic heart valve; Z98.890 Other specified postprocedural states
CPT/HCPCS: 78452; 93017; 93306; A9500; A4216; J2785

== ENCOUNTER → 2018-06-30 | Outpatient (CLI) | payer OTHER, SELFPAY ==
[2018-06-13 08:51] VITALS: BMI 23.7
--- NOTE | 2018-06-30 07:37 | CT_ITS ---
STUDY: CT CHEST WITH CONTRAST REASON FOR EXAM: Male, 57 years old. Chest pain. Heart murmur. History of aortic valve replacement and aortic aneurysm repair. RADIATION DOSAGE (If Supplied By Facility): CTDIvol = ( 10.84 ) mGy, DLP = ( 327.57 ) mGycm TECHNIQUE: Transaxial imaging was performed following intravenous administration of 100CC IV Isovue 300. Multiplanar coronal and sagittal images were reformatted. Individualized dose optimization techniques were used for this CT. COMPARISON: None. FINDINGS: Mild groundglass appearance in the posterior left lower lobe. This may represent atelectasis and/or early infiltrate. There is no demonstrated pleural abnormality. A dual-chamber pacemaker is seen. Sternal cerclage wires are present from a prior sternotomy. There is evidence of aortic valve replacement. Postsurgical changes are seen in the proximal descending thoracic aorta. There is no evidence of aneurysmal dilatation. Normal mediastinum. Normal hilar regions. Normal enhanced pulmonary arteries. There is atherosclerotic calcification of the aortic arch.. Normal osseous structures. There is no demonstrated abnormality of the visualized upper abdomen. CT/Chest WITH Contrast IMPRESSION: Status post midline sternotomy and aortic valve replacement as well as surgical changes of the ascending thoracic aorta. No acute abnormality is seen. Electronically Signed: Carlos Campos, at 13:21 EDT , Service support ,
== END | disposition home or self-care (01) ==
LOC: CT 07:36
PROVIDERS: Family Provider Nurse Practitioner Family; PCP Nurse Practitioner Family; Referring Provider Internal Medicine Cardiovascular Disease; Visit Provider Internal Medicine Cardiovascular Disease
DX: R07.9 Chest pain, unspecified (principal); Z95.3 Presence of xenogenic heart valve; Z98.890 Other specified postprocedural states; Z86.79 Personal history of other diseases of the circulatory system; I49.5 Sick sinus syndrome; I47.1 Supraventricular tachycardia; Z95.0 Presence of cardiac pacemaker; E78.00 Pure hypercholesterolemia, unspecified; I10 Essential (primary) hypertension
CPT/HCPCS: 71260; Q9967

== ENCOUNTER 2018-08-24 10:18 | Inpatient (IN) | payer OTHER, SELFPAY ==
[2018-06-13 08:51] VITALS: BMI 23.7
[2018-08-24 10:19] VITALS: BP 164/103; PULSE 61; RESP 17; TEMP 37.2; O2SAT 95; BMI 23.1
--- NOTE | 2018-08-24 10:39 | ED.DCSUM_ITS ---
- ER Visit Summary Date of Service: 08/24/18 Chief Complaint: I want detox History of Present Illness: The patient is a 58 M states he came to the emergency department after meeting with his steps counselor because he would like to enter the [facility] alcohol detox program. He states that he did not call [facility]. He also has a history of heroin abuse but has not used for years. He states he typically drinks up to 1/5 of vodka a day and frequently blacks out. He believes last time he did any type of detox was several years ago. He does not recall his alcohol detox last August with [facility]. He has a history of diabetes and hypertension. He has an aortic valve replacement. He also has a pacemaker due to sick sinus syndrome. Patient notes headache, nausea without vomiting, tremors in his hands, chills and sweats, anxiety and a restless fidgety feeling. Physical Examination: Afebrile noted hypertension 164/103 otherwise vital signs are stable Gen: Well-nourished well-developed Head: Normocephalic atraumatic Eyes: Perrl EOMI ENT: TMs clear no rhinorrhea moist mucous membranes Neck: Supple no lymphadenopathy no JVD nontender CVS: Regular rate rhythm no murmurs normal S1-S2 Respiratory: No distress clear to auscultation bilaterally chest nontender Abdomen: Soft nontender nondistended normal bowel sounds no masses Back: Nontender Extremity: Nontender no edema Skin: Normal color no rash Neuro: alert orientated ?3 CN II-XII intact normal strength sensation patient has a slight tremor with his arms extended Psych: Normal affect normal mood Emergency Department Course and Treatment: I score the patient a 19 on the CIWA- Ar assessment. I contacted [facility]. Pending their approval patient would be admitted to the hospitalist service. Impression: 1. Alcohol abuse 2. Alcohol withdrawal This note was generated with [employer] dictation software. It may contain incorrect words, spelling, and punctuation that were not noted in review of the chart prior to signing ED Disposition - Plan for ED Patient: Referrals: Dk Pathak, SUSAN-C [Primary Care Provider] -
--- NOTE | 2018-08-24 10:56 | NURSING ---
1047 CALLED [facility]
--- NOTE | 2018-08-24 11:35 | NURSING ---
DR KAISER FOR DR OLIVIER
--- NOTE | 2018-08-24 11:49 | NURSING ---
[facility] ALCOHOL WITHDRAWAL
--- NOTE | 2018-08-24 11:53 | ED.RN ---
NO IV AT THIS TIME PER HOSPITALIST
--- NOTE | 2018-08-24 12:06 | NURSING ---
GOING TO 316
[2018-08-24] MEDS: LORazepam 1 MG Tablet PO (12:19)
--- NOTE | 2018-08-24 13:47 | PCM.HP.STD ---
Problem List (1) Alcohol withdrawal Status: Acute (2) SVT (supraventricular tachycardia) Status: Acute (3) History of aortic aneurysm repair Status: Resolved Comment: 2005 @ [facility]; and 2017 @ [facility] (4) History of aortic valve replacement with bioprosthetic valve Status: Resolved Comment: aortic valve replacement with mechanical valve 01/22/15; redo aortic valve replacement with a Bovine Valve [facility] 2016 (5) Cardiac pacemaker in situ Status: Chronic (6) Essential hypertension Status: Chronic (7) Diabetes mellitus, type II Status: Chronic Qualifiers: History of Present Illness Date of Admission: 08/24/18 Chief Complaint: Alcohol withdrawal The patient is a 58 year old M with PMH as below who presents with recent desire to undergo detox. He states that he is sick and tired of being sick and tired which is why he came today, also is 89-year-old father does not feel comfortable letting him drive so he drives his son everywhere. He also misses 1 to 2 days of work every month because of it and he is been out for the last 2 days from work. He drinks about 1/5 of vodka every day and this is been going on for several years. He is actually been in [facility] about a year ago which he does not remember. He is also a former heroin addict however he stopped that after his son overdosed on heroin and . His last drink was yesterday morning and today in the ER his CIWA was 19, his vital signs are unremarkable. Past Medical History Past Medical History (Chronic Problems): Chronic Problems (Last Reviewed 06/13/18 @ 08:39 by Марина Ku) Pure hypercholesterolemia (Chronic) Left carotid bruit (Chronic) Cardiac pacemaker in situ (Chronic ~06/2016) Essential hypertension (Chronic) 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) Sick sinus syndrome (Chronic) Diabetes mellitus, type II (Chronic) Tobacco use (Chronic) Medical History: Medical History (Last Reviewed 06/13/18 @ 08:39 by Марина Ku) SVT (supraventricular tachycardia) (Acute) I47.1 Pure hypercholesterolemia (Chronic) E78.00 Left carotid bruit (Chronic) R09.89 Cardiac pacemaker in situ (Chronic) Onset Date: ~06/2016 Z95.0 Essential hypertension (Chronic) I10 Shortness of breath (Acute) R06.02 Pleuritic chest pain (Acute) R07.81 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) Sick sinus syndrome (Chronic) I49.5 Diabetes mellitus, type II (Chronic) E11.9 Tobacco use (Chronic) Z72.0 Ascending aortic dissection Onset Date: ~2005 I71.01 Adrenal nodule E27.9 Left Hiatal hernia K44.9 Aortic aneurysm (Inactive) I71.9 HTN (hypertension) (Inactive) I10 Pacemaker (Inactive) Z95.0 Allergies No Known Allergies Allergy (Verified 08/24/18 10:19) Home Medications: Ambulatory Orders Medication Instructions Recorded Insulin Detemir [Levemir] 34 units SUBCUT DINNER 06/20/16 Multivitamin [Daily Multiple 1 ea PO DAILY 12/27/17 Vitamin] Acetaminophen [Tylenol Tablet] 650 mg PO Q6H PRN PRN #30 tab 12/29/17 atorvastatin 10 mg tablet 40 mg PO QHS 06/10/18 fluoxetine 40 mg capsule 40 mg PO DAILY 06/10/18 metoprolol succinate ER 100 mg 100 mg PO BID 06/10/18 tablet,extended release 24 hr omeprazole 40 mg capsule,delayed 40 mg PO DAILY 06/10/18 release Lisinopril 20 mg PO DAILY 08/24/18 Venlafaxine HCl [Venlafaxine HCl 37.5 units PO DAILY 08/24/18 ER] Surgical History: Surgical History (Last Reviewed 06/13/18 @ 08:39 by Мариан Ku) History of aortic aneurysm repair (Resolved) Onset Date: ~2017 Z98.890, Z86.79 2006 @ [facility]; and 2017 @ [facility] History of aortic valve replacement with bioprosthetic valve (Resolved) Onset Date: ~2017 Z95.3 aortic valve replacement with mechanical valve 01/22/15; redo aortic valve replacement with a Bovine Valve [facility] 2017 History of cataract surgery Z98.49 History of hernia repair Z98.890, Z87.19 H/O aortic valve replacement (Inactive) Z95.2 Surgical History: - - Aortic aneurysm repair and aortic valve replacement (bovine) with total 3 separate surgies, most recent 04/2016 [facility], R inguinal hernia repair. Psychiatric History: No pertinent psych hx Smoking Status: Current every day smoker Tobacco Use: Cigarettes Alcohol: Heavy Drugs: None - *Family History Maternal Family History: Family History (Last Reviewed 06/13/18 @ 08:39 by Марина Ku) Father CAD (coronary artery disease) Mother Dementia History Items: Dementia Paternal Family History: Family History (Last Reviewed 06/13/18 @ 08:39 by Марина Ku) Father CAD (coronary artery disease) Mother Dementia History Items: Heart Disease Review of Systems Constitutional: Denies: Chills, Fever, Weight Change HEENT: Denies: Head Aches, Sinus Congestion, Sinus Drainage Cardiovascular: Denies: Chest Pain, Palpitations Respiratory: Denies: Cough, Shortness of breath at rest, Sputum production Gastrointestinal: Denies: Abdominal Pain, Nausea, Vomiting Genitourinary: Denies: Dysuria Musculoskeletal: Denies: Joint Pain, Joint Tenderness Skin: Denies: Rash, Wounds Neurological: Reports: Headaches, Tremor. Denies: Focal weakness, Numbness, Tingling Psychiatric: Denies: Anxiety, Depression Hematologic/ Lymphatic: Denies: Easy Bruising, Easy Bleeding VTE Information - Inpt Only VTE Present on Admission: No Patient Problems: Active and Suspected Problems (Last Reviewed 06/13/18 @ 08:39 by Марина Ku) Alcohol withdrawal (Acute) - Physical Exam General: Alert, Oriented x3, Cooperative, No apparent distress HEENT: Atraumatic, PERRLA, EOMI, Normocephalic Oral: Dry Mucosa Neck: Supple, No JVD Lungs: Clear to auscultation, Normal air movement, No rhonchi, No wheeze, No rales Cardiovascular: Regular rate, Regular Rhythm, Normal S1, Normal S2, Murmur - 3/6 LUSB SOURAV Abdomen: Soft, Non Tender, Non-Distended, No Hepato-splenomegaly Extremities: No edema, Capillary Refill Less than 3 Seconds Skin: No rashes, No breakdown Neurological: Neuro grossly intact, Sensory exam intact to light touch and pain Psych/Mental Status: Restless Vital Signs Temp Pulse Resp BP Pulse Ox 99.0 F 61 17 164/103 H 95 08/24/18 10:19 08/24/18 10:19 08/24/18 10:19 08/24/18 10:08/24/18 10:19 Oxygen Delivery Method Room Air Weight: 166 lb 3.657 oz Body Mass Index (BMI) 23.1 Finger Stick Blood Glucose 125 Assessment/Plan All Active Problems (Last Reviewed 06/13/18 @ 08:39 by Марина Ku) Alcohol withdrawal (Acute) SVT (supraventricular tachycardia) (Acute) History of aortic aneurysm repair (Resolved ~2017) History of aortic valve replacement with bioprosthetic valve (Resolved ~2017) Shortness of breath (Acute) Pleuritic chest pain (Acute) 1. Alcohol withdrawal/depression - CIWA of 19 -Strength with his fifth of vodka yesterday -Continue with [facility] protocol for alcohol withdrawal -Continue with Prozac and venlafaxine 2. HTN/HLD/aortic aneurysm status post repair with aortic valve replacement/sick sinus syndrome status post pacemaker -Currently all is stable -Tinea with lisinopril, metoprolol, and Lipitor 3. GERD -Stable -Continue with PPI 4. DM 2 -Insulin-dependent, will continue with his home Levemir -Accu-Cheks AC at bedtime DVT: Ambulation Code Visit Inpatient E&M: 69802 Init Hosp L3
[2018-08-24 14:14] VITALS: BMI 23.5
[2018-08-24 14:24] VITALS: BP 166/90; PULSE 69; RESP 14; TEMP 37.1; O2SAT 98
[2018-08-24] MEDS: hydrOXYzine PAM 25 MG Capsule 50 MG PO (14:55)
[2018-08-24] MEDS: chlordiazePOXIDE 25 MG Capsule PO ×2 (14:56→20:34)
[2018-08-24] MEDS: Multivitamins,Therapeutic Tablet 1 TABLET PO (15:59)
[2018-08-24] MEDS: Folic Acid 1 MG Tablet PO (15:59)
[2018-08-24] MEDS: Thiamine Hydrochloride 100 MG Tablet PO (15:59)
[2018-08-24] MEDS: Acetaminophen 325 MG Tablet 650 MG PO (16:03)
[2018-08-24] MEDS: Methocarbamol 750 MG Tablet PO (16:03)
[2018-08-24 16:06] VITALS: BP 182/95; PULSE 60; RESP 18; TEMP 36.9
[2018-08-24 16:06] LABS: Bedside Glucose 270 mg/dL (70-110)
[2018-08-24 20:14] VITALS: BP 144/92; PULSE 60; PULSE 61; RESP 18; TEMP 36.4; O2SAT 97
[2018-08-24 20:27] VITALS: RESP 18
[2018-08-24] MEDS: Atorvastatin Calcium 40 MG Tablet PO (22:31)
--- NOTE | 2018-08-24 23:37 | NURSING ---
2240 Evaristo cracker wrappers on table. Regular soda on table. RN educated patient, said to drink diet soda. Same was brought to patient. Blood glucose 487. Stat order put in for lab backup. Lab called to let them know of stat order. 2339 Still waiting for lab to draw. not notified as of yet. (He is busy with a rapid response in ICU.)
[2018-08-24 23:43] LABS: Glucose 489 mg/dL (74-106)
[2018-08-25] VITALS (33 sets, daily range): BP systolic 113–162; BP diastolic 72–107; PULSE 59–60; RESP 12–22; TEMP 36.6–36.8; O2SAT 96–99
[2018-08-25] MEDS: 0.9% Normal Saline 1,000 ML 100 ML IV (00:05)
[2018-08-25] MEDS: Insulin Lispro 100 UNIT/ML INSULN.PEN 10 UNIT SC (00:45)
[2018-08-25] MEDS: chlordiazePOXIDE 25 MG Capsule PO ×3 (03:22→18:21)
[2018-08-25 03:45] LABS: Bedside Glucose 67 mg/dL (70-110)
[2018-08-25 04:36] LABS: Bedside Glucose 169 mg/dL (70-110)
[2018-08-25 06:14] LABS: Anion Gap 8 (5-15); BUN 16 mg/dL (7-18); BUN/Creat Ratio 16.8 RATIO (10-20); Calcium,Total 8.4 mg/dL (8.5-10.1); Chloride 108 mmol/L (98-107); Creatinine, Serum 0.96 mg/dL (0.70-1.30); EST Glomerular Filtration Rate 87 mL/min (>60); Est Glom Filt Rate - Afr Amer 105 mL/min (>60); Estimated Creatinine Clearance 91.51 ml/min; Glucose 169 mg/dL (74-106); Potassium 3.5 mmol/L (3.5-5.1); Sodium Level 140 mmol/L (136-145)
[2018-08-25 06:55] LABS: Bedside Glucose 144 mg/dL (70-110)
[2018-08-25 07:20] LABS: Bedside Glucose 487 mg/dL (70-110)
[2018-08-25 07:20] LABS: Bedside Glucose 487 mg/dL (70-110)
--- NOTE | 2018-08-25 08:10 | PCM.PN.HOSP ---
Patient Problems: Active and Suspected Problems (Last Reviewed 06/13/18 @ 08:39 by Марина Ku) Alcohol withdrawal (Acute) Subjective: Slight tremor, but otherwise feels okay. Vitals/I&O's: Vital Signs Temp Pulse Resp BP Pulse Ox 98.0 F 60 18 147/92 H 96 08/25/18 03:32 08/25/18 03:32 08/25/18 06:00 08/25/18 03:32 08/25/18 03:32 Oxygen Delivery Method Room Air Weight: 168 lb 6.931 oz Body Mass Index (BMI) 23.5 Finger Stick Blood Glucose 125 Intake and Output for Last 24 Hours 08/23/18 08/24/18 08/25/18 23:59 23:59 23:59 Intake Total 500 / 1337 2053 Balance 500 / 1337 2053 General: Alert, Oriented x3, Cooperative, No apparent distress HEENT: Atraumatic, PERRLA, EOMI, Normocephalic Oral: Dry Mucosa Neck: Supple, No JVD Lungs: Clear to auscultation, Normal air movement, No rhonchi, No wheeze, No rales Cardiovascular: Regular rate, Regular Rhythm, Normal S1, Normal S2, Murmur - 3/6 LUSB SOURAV Abdomen: Soft, Non Tender, Non-Distended, No Hepato-splenomegaly Extremities: No edema, Capillary Refill Less than 3 Seconds Skin: No rashes, No breakdown Neurological: Neuro grossly intact, Sensory exam intact to light touch and pain Psych/Mental Status: Normal affect, appropriate Laboratory Results 08/24/18 15:58: POC Glucose 270 H 08/24/18 22:33: POC Glucose 487 H* 08/24/18 22:37: POC Glucose 487 H* 08/24/18 23:15: Glucose 489 H* 08/25/18 03:24: POC Glucose 67 L 08/25/18 04:29: POC Glucose 169 H 08/25/18 05:48: Sodium 140, Potassium 3.5, Chloride 108 H, Carbon Dioxide 24.0, Anion Gap 8, BUN 16, Creatinine 0.96, Estim Creat Clear Calc 91.51, Est GFR (MDRD) Af Amer 105, Est GFR (MDRD) Non-Af 87, BUN/Creatinine Ratio 16.8, Glucose 169 H, Calcium 8.4 L 08/25/18 06:49: POC Glucose 144 H Current Medications Acetaminophen (Tylenol) 650 mg PO Q6H PRN PRN PRN Reason: Mild Pain (scale 0-3)/T>100.7 Last Admin: 08/24/18 16:03 Dose: 650 mg Documented by: Atorvastatin Calcium (Lipitor) 40 mg PO QHS [facility] Last Admin: 08/24/18 22:31 Dose: 40 mg Documented by: Chlordiazepoxide (Librium) 50 mg PO Q6H KUNAL; Taper Stop: 08/27/18 16:59 Last Admin: 08/25/18 03:22 Dose: 50 mg Documented by: Dextrose (D50w Syringe) 0 gm IV X1 PRN; Protocol PRN Reason: Hypoglycemia Dicyclomine HCl (Bentyl) 20 mg PO Q6H PRN PRN PRN Reason: abdominal discomfort Fluoxetine HCl (Prozac) 40 mg PO DAILY [facility] Folic Acid (Folic Acid) 1 mg PO DAILY KUNAL Stop: 08/26/18 08:01 Last Admin: 08/24/18 15:59 Dose: 1 mg Documented by: Glucagon () 1 mg IM .X1 PRN PRN Reason: Hypoglycemia Hydroxyzine Pamoate (Vistaril Pamoate Capsule) 50 mg PO Q6H PRN PRN PRN Reason: Mild Anxiety (score 1/3) Last Admin: 08/24/18 14:55 Dose: 50 mg Documented by: Insulin Glargine (Lantus (Bkc)) 34 units SC DINNER [facility] Last Admin: 08/24/18 15:59 Dose: 34 units Documented by: Insulin Human Lispro (Humalog Kwikpen (Bkc)) 0 unit SC ACHS & 3AM KUNAL; Protocol Last Admin: 08/25/18 06:50 Dose: Not Given Documented by: Lisinopril (Zestril) 20 mg PO DAILY [facility] Lorazepam (Ativan) 1 mg IV Q2H PRN PRN PRN Reason: Severe Anxiety Lorazepam (Ativan) 2 mg IV X1 PRN PRN Reason: Seizure Methocarbamol (Methocarbamol) 750 mg PO Q6H PRN PRN PRN Reason: Muscle Aches Last Admin: 08/24/18 16:03 Dose: 750 mg Documented by: Metoprolol Succinate (Toprol Xl (Beta Thiago)) 100 mg PO DAILY [facility] Last Admin: 08/24/18 15:59 Dose: 1 tablet Documented by: Ondansetron HCl (Zofran) 4 mg IV Q8H PRN PRN PRN Reason: NAUSEA/VOMITING Pantoprazole Sodium (Protonix) 40 mg PO DAILY [facility] Thiamine HCl (Vitamin B1) [facility] Stop: 08/26/18 08:01 Last Admin: 08/24/18 15:59 Dose: 100 mg Documented by: Medical Necessity - Tobacco Use Smoking Status: Current every day smoker Tobacco Use: Cigarettes Assessment/Plan All Active Problems (Last Reviewed 06/13/18 @ 08:39 by Марина Ku) Alcohol withdrawal (Acute) SVT (supraventricular tachycardia) (Acute) History of aortic aneurysm repair (Resolved ~2016) History of aortic valve replacement with bioprosthetic valve (Resolved ~2016) Shortness of breath (Acute) Pleuritic chest pain (Acute) 1. Alcohol withdrawal/depression - CIWA of 19 -Strength with his fifth of vodka yesterday -Continue with [facility] protocol for alcohol withdrawal -Continue with Prozac and venlafaxine 2. HTN/HLD/aortic aneurysm status post repair with aortic valve replacement/sick sinus syndrome status post pacemaker -Currently all is stable -Tinea with lisinopril, metoprolol, and Lipitor 3. GERD -Stable -Continue with PPI 4. DM 2 -Insulin-dependent, will continue with his home Levemir -Accu-Cheks AC at bedtime DVT: Ambulation Code Visit Inpatient E&M: 74243 Subs Hosp L2
[2018-08-25] MEDS: Pantoprazole Sodium 40 MG Tablet PO (09:15)
[2018-08-25] MEDS: FLUoxetine 20 MG Capsule 40 MG PO (09:15)
[2018-08-25] MEDS: Folic Acid 1 MG Tablet PO (09:15)
[2018-08-25] MEDS: Thiamine Hydrochloride 100 MG Tablet PO (09:15)
[2018-08-25] MEDS: Multivitamins,Therapeutic Tablet 1 TABLET PO (09:15)
[2018-08-25] MEDS: Lisinopril 20 MG Tablet PO (09:16)
[2018-08-25] MEDS: Metoprolol(XL)Succ 100 MG Tablet PO (09:19)
[2018-08-25] MEDS: Insulin Lispro 100 UNIT/ML INSULN.PEN SC ×2 (11:45→21:12)
[2018-08-25] MEDS: Methocarbamol 750 MG Tablet PO (11:58)
[2018-08-25] MEDS: Acetaminophen 325 MG Tablet 650 MG PO ×2 (11:58→20:44)
[2018-08-25 14:20] LABS: Bedside Glucose 298 mg/dL (70-110)
[2018-08-25 15:35] LABS: Bedside Glucose 140 mg/dL (70-110)
--- NOTE | 2018-08-25 15:50 | CT_ITS ---
We are attempting to reach an attending provider to discuss findings. An addendum with communication details will be sent when the communication is complete. STUDY: CT BRAIN WITHOUT CONTRAST REASON FOR EXAM: Male, 58 years old. Stroke RADIATION DOSAGE (If Supplied By Facility): CTDIvol = ( 44.99 ) mGy, DLP = ( 745.49 ) mGycm TECHNIQUE: Transaxial CT imaging of the brain was performed without administration of intravenous contrast material. Individualized dose optimization techniques were used for this CT. COMPARISON: No relevant priors. FINDINGS: Normal soft tissue structures. Normal calvarium. Normal size ventricles and extra-axial spaces for the patient's age. Normal white matter tracts of the cerebral hemispheres. Normal basal ganglia and thalami. Normal brainstem. Normal cerebellum. There is no intracranial hemorrhage. There are no findings of an acute ischemic infarction. Normal visualized paranasal sinuses. CT/Brain/Head without Contrast IMPRESSION: Normal unenhanced CT scan of the brain. Electronically Signed: Orlin Stephens MD at 16:07 EDT , Service support ,
[2018-08-25 15:56] LABS: Bedside Glucose 146 mg/dL (70-110)
--- NOTE | 2018-08-25 16:16 | CT_ITS ---
STUDY: CTA HEAD AND NECK WITH CONTRAST REASON FOR EXAM: Male, 58 years old. Right-sided weakness and alcoholic are all RADIATION DOSAGE (If Supplied By Facility): CTDIvol = ( 25.81 ) mGy, DLP = ( 729.58 ) mGycm TECHNIQUE: CT angiography was performed with a multi-detector CT scanner. Data acquisition was obtained from the skull base through the vertex following intravenous administration of 100mL IV Isovue 370. MIP images were reconstructed from the axial data set. Post-processing of the angiographic images was performed, with multiplanar reformation and 3D reconstruction. Individualized dose optimization techniques were used for this CT. COMPARISON: August 25, 2018 FINDINGS: Normal bilateral petrous carotid arteries. Normal right cavernous carotid artery with a normal supraclinoid bifurcation. Normal left cavernous carotid artery with a normal supraclinoid bifurcation. Normal right A1 segments of the anterior cerebral artery. Normal left A1 segments of the anterior cerebral artery. Normal intact anterior communicating artery (ACOM). Normal bilateral A2 segments of the anterior cerebral arteries. Normal right M1 and M2 segments of the middle cerebral arteries, with a normal M1 bifurcation. Normal left M1 and M2 segments of the middle cerebral arteries, with a normal M1 bifurcation. There is non-visualization of the right posterior communicating artery (PCOM). There is non-visualization of the left posterior communicating artery (PCOM). Normal bilateral vertebral arteries. Normal basilar artery with a normal basilar bifurcation. The visualized bilateral superior cerebellar (SCA) arteries are normal. Normal bilateral P1, P2 and visualized P3 segments of the posterior cerebral arteries. There is no demonstrated aneurysm of the [place] of [place]. There is no demonstrated abnormality of the visualized brain. AORTIC ARCH: Normal visualized aortic arch. Normal origins of the brachiocephalic, left common carotid, and left subclavian arteries. RIGHT CAROTID ARTERIES: Normal right common carotid artery (CCA). There is mild atherosclerotic plaque formation with minimal narrowing of the right carotid bulb. Normal origin of the right internal carotid (ICA) artery without a hemodynamically significant stenosis. Normal visualized cervical portion of the right internal carotid artery. Normal origin of the right external carotid artery (ECA). LEFT CAROTID ARTERIES: Normal left common carotid artery (CCA). Normal left common carotid bulb. Normal origin of the left internal carotid (ICA) artery without a hemodynamically significant stenosis. Normal visualized cervical portion of the left internal carotid artery. Normal origin of the left external carotid artery (ECA). VERTEBRAL ARTERIES: Normal bilateral vertebral arteries. CT/CTA Head AND Neck W/ Contrast IMPRESSION: Normal CTA Head and neck with contrast. Electronically Signed: Orlin Stephens MD at 17:31 EDT , Service support ,
--- NOTE | 2018-08-25 16:22 | CHAPLAIN ---
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
--- NOTE | 2018-08-25 17:11 | EKG12_ITS ---
Test Reason : STROKE Blood Pressure : / mmHG Vent. Rate : 060 BPM Atrial Rate : 060 BPM P-R Int : 178 ms QRS Dur : 134 ms QT Int : 460 ms P-R-T Axes : 001 -07 056 degrees QTc Int : 460 ms Electronic atrial pacemaker Right bundle branch block Abnormal ECG When compared with ECG of 07-JUN-2018 10:35, T wave inversion no longer evident in Lateral leads Confirmed by KETTY CHURCHILL MD ([id number]), editor trade journal TARA LEON ([id number]) on 08/30/2018 2:04:50 PM Referred By: JOSÉ ANTONIO Confirmed By:KETTY CHURCHILL MD
--- NOTE | 2018-08-25 17:11 | PCM.PN.BLA ---
Progress Note At 1545 a stroke alert was called. I had previously seen the patient be unsteady on his feet and complaining of dizziness he had his blood sugar checked at that time which was 140. He was taken back to the his room where for further examination when it was found that he had right lower extreme any weakness. A stroke alert was called and he was evaluated and it was decided to take the patient down to the CT scan and to activate the [facility] tele-stroke. On our in-house assessment he had an NIH of 9 and his contradict Acacian checklist of TPA was negative and therefore in consultation with [facility], we proceeded with TPA administration and transferred to the ICU after he had a stat CTA of the head and neck. I also discussed the case with our in-house neurologist who stated that if the patient has no need for transfer to [facility] then he would be happy to see the patient in consultation.
[2018-08-25] MEDS: LORazepam 2 MG/ML Syringe 1 MG IV (21:00)
[2018-08-25] MEDS: Atorvastatin Calcium 40 MG Tablet PO (21:12)
[2018-08-25 21:20] LABS: Bedside Glucose 346 mg/dL (70-110)
[2018-08-26] VITALS (30 sets, daily range): BP systolic 98–151; BP diastolic 65–94; PULSE 60; RESP 12–26; TEMP 36.1–36.9; O2SAT 95–100
[2018-08-26] MEDS: chlordiazePOXIDE 25 MG Capsule PO ×3 (00:29→16:27)
[2018-08-26] MEDS: 0.9% NaCl Peripheral Flush Adult/Peds IV (02:13)
[2018-08-26] MEDS: Dextrose 50%-Water 25 GM/50 ML DISP.SYRIN IV (02:13)
--- NOTE | 2018-08-26 02:27 | NURSING ---
called into patient's room at approximately 0200 for patient stating I think my blood sugar is low, I don't feel right. My mouth is dry. Patient drowsy, disoriented, blood glucose 42, orange juice given and drank, attempted to give peanut butter and maryam crackers patient closed eyes and not responding to verbal commands or sternal rub, pulse present, after approximately 30 seconds patient woke up and talking, D50 IV given, will continue to monitor.
[2018-08-26 02:41] LABS: Bedside Glucose 261 mg/dL (70-110)
[2018-08-26 04:31] LABS: Absolute Lymphocyte Count 0.83 X10^3/uL (0.83-4.51); Absolute Neutrophil Count 4.5 X10^3/uL (2.0-7.7); Basophil# 0.06 X10^3/uL; Eosinophil# 0.13 X10^3/uL; Eosinophils% 2.1 % (0-5); Hematocrit 33.6 % (40-54); Hemoglobin 11.6 g/dL (13.0-16.5); Lymphocyte # 0.83 X10^3/ul (4.0); Lymphocyte % 13.6 % (19-41); Mean Corp Hgb Conc 34.5 g/dL (32-36); Mean Corpuscular Hgb 31.8 pg (27.0-32.0); Mean Corpuscular Volume 92.1 fL (80-94); Mean Platelet Vol. 10.2 fl (6.2-12.0); Monocyte# 0.53 X10^3/uL; Monocyte% 8.7 % (0-10); NRBC Flagged by Analyzer 0 % (0-5); Neutrophil # 4.53 X10^3/uL (2.7-7.7); Neutrophil % 73.9 % (47-70); Platelet Count 147 K/mm3 (150-450); RBC Distribution Width SD 43.9 fl (35.1-43.9); Red Blood Count 3.65 M/mm3 (4.6-6.2); White Blood Count 6.1 K/mm3 (4.4-11.0)
[2018-08-26 04:39] LABS: Anion Gap 7 (5-15); BUN 14 mg/dL (7-18); BUN/Creat Ratio 12.5 RATIO (10-20); Calcium,Total 8.1 mg/dL (8.5-10.1); Chloride 110 mmol/L (98-107); Cholesterol 100 mg/dL (200); Creatinine, Serum 1.12 mg/dL (0.70-1.30); EST Glomerular Filtration Rate 72 mL/min (>60); Est Glom Filt Rate - Afr Amer 87 mL/min (>60); Estimated Creatinine Clearance 78.44 ml/min; Glucose 222 mg/dL (74-106); High Density Lipoprotein 39 mg/dL; Potassium 3.9 mmol/L (3.5-5.1); Sodium Level 141 mmol/L (136-145); Triglycerides 96 mg/dL; Very Low Density Lipoprotein 19 mg/dL (5-40)
[2018-08-26 06:55] LABS: Bedside Glucose 207 mg/dL (70-110)
[2018-08-26 07:10] LABS: Bedside Glucose 248 mg/dL (70-110)
[2018-08-26 07:10] LABS: Bedside Glucose 42 mg/dL (70-110)
[2018-08-26] MEDS: Insulin Lispro 100 UNIT/ML INSULN.PEN SC ×3 (08:14→21:13)
[2018-08-26] MEDS: Thiamine Hydrochloride 100 MG Tablet PO (08:15)
[2018-08-26] MEDS: Folic Acid 1 MG Tablet PO (08:15)
[2018-08-26] MEDS: Multivitamins,Therapeutic Tablet 1 TABLET PO (08:15)
[2018-08-26] MEDS: Lisinopril 20 MG Tablet PO (08:15)
[2018-08-26] MEDS: Metoprolol(XL)Succ 100 MG Tablet PO (08:15)
[2018-08-26] MEDS: Pantoprazole Sodium 40 MG Tablet PO (08:16)
[2018-08-26] MEDS: FLUoxetine 20 MG Capsule 40 MG PO (08:16)
--- NOTE | 2018-08-26 08:26 | NEWVISION ---
Patient is interested in returning to [facility] and resuming IOP and individual therapy.
--- NOTE | 2018-08-26 09:32 | PN_ITS ---
Patient Problems: Active and Suspected Problems (Last Reviewed 06/13/18 @ 08:39 by Марина Ku) Alcohol withdrawal (Acute) Subjective: Feeling better today, is having the use of his right arm and right lower extremity though he says that his right arm still feels a little bit heavy at times. Mentation also seems sharper. Vitals/I&O's: Vital Signs Temp Pulse Resp BP Pulse Ox 97.9 F 60 16 137/90 H 98 08/26/18 06:00 08/26/18 08:15 08/26/18 08:00 08/26/18 08:15 08/26/18 08:00 Oxygen Delivery Method Room Air Weight: 173 lb 1.006 oz Body Mass Index (BMI) 23.5 Finger Stick Blood Glucose 140 Intake and Output for Last 24 Hours 08/24/18 08/25/18 08/26/18 23:59 23:59 23:59 Intake Total 500 / 1337 3054 / 3535 721 / 721 Output Total 301 / 501 350 / 350 Balance 500 / 1337 2753 / 3034 371 / 371 General: Alert, Oriented x3, Cooperative, No apparent distress HEENT: Atraumatic, PERRLA, EOMI, Normocephalic Oral: Dry Mucosa Neck: Supple, No JVD Lungs: Clear to auscultation, Normal air movement, No rhonchi, No wheeze, No rales Cardiovascular: Regular rate, Regular Rhythm, Normal S1, Normal S2, Murmur - 3/6 LUSB SOURAV Abdomen: Soft, Non Tender, Non-Distended, No Hepato-splenomegaly Extremities: No edema, Capillary Refill Less than 3 Seconds Skin: No rashes, No breakdown Neurological: Neuro grossly intact, Sensory exam intact to light touch and pain Psych/Mental Status: Normal affect, appropriate Laboratory Results 08/25/18 11:43: POC Glucose 298 H 08/25/18 15:29: POC Glucose 140 H 08/25/18 15:46: POC Glucose 146 H 08/25/18 18:00: Troponin I < 0.015 08/25/18 21:09: POC Glucose 346 H 08/26/18 01:58: POC Glucose 42 L* 08/26/18 02:10: POC Glucose 248 H 08/26/18 02:35: POC Glucose 261 H 08/26/18 04:00: Sodium 141, Potassium 3.9, Chloride 110 H, Carbon Dioxide 24.0, Anion Gap 7, BUN 14, Creatinine 1.12, Estim Creat Clear Calc 78.44, Est GFR (MDRD) Af Amer 87, Est GFR (MDRD) Non-Af 72, BUN/Creatinine Ratio 12.5, Glucose 222 H, Calcium 8.1 L, Triglycerides 96, Cholesterol 100, LDL Cholesterol 42, VLDL Cholesterol 19, HDL Cholesterol 39 L 08/26/18 04:00: WBC 6.1, RBC 3.65 L, Hgb 11.6 L, Hct 33.6 L, MCV 92.1, MCH 31.8, MCHC 34.5, RDW Std Deviation 43.9, RDW Coeff of Kalpana 13.0, Plt Count 147 L, MPV 10.2, Immature Gran % (Auto) 0.700, Neut % (Auto) 73.9 H, Lymph % (Auto) 13.6 L, [place] % (Auto) 8.7, Eos % (Auto) 2.1, Baso % (Auto) 1.0, Absolute Neuts (auto) 4.5, Absolute Lymphs (auto) 0.83, Absolute Nucleated RBC 0.00, Nucleated RBC % 0 08/26/18 06:47: POC Glucose 207 H Current Medications Acetaminophen (Tylenol) 650 mg PO Q6H PRN PRN PRN Reason: Mild Pain (scale 0-3)/T>100.7 Last Admin: 08/25/18 20:44 Dose: 650 mg Documented by: Atorvastatin Calcium (Lipitor) 40 mg PO QHS KUNAL Last Admin: 08/25/18 21:12 Dose: 40 mg Documented by: Chlordiazepoxide (Librium) 50 mg PO Q8H KUNAL; Taper Stop: 08/27/18 16:59 Last Admin: 08/26/18 08:18 Dose: 50 mg Documented by: Dextrose (D50w Syringe) 0 gm IV X1 PRN; Protocol PRN Reason: Hypoglycemia Last Admin: 08/26/18 02:13 Dose: 25 gm Documented by: Dicyclomine HCl (Bentyl) 20 mg PO Q6H PRN PRN PRN Reason: abdominal discomfort Diphenhydramine HCl (Benadryl) 50 mg IV X1 PRN PRN Reason: Allergic Reaction Epinephrine HCl () 0.3 mg IM X1 PRN PRN Reason: Allergic Reaction Fluoxetine HCl (Prozac) 40 mg PO DAILY [facility] Last Admin: 08/26/18 08:16 Dose: 40 mg Documented by: Glucagon () 1 mg IM .X1 PRN PRN Reason: Hypoglycemia Hydroxyzine Pamoate (Vistaril Pamoate Capsule) 50 mg PO Q6H PRN PRN PRN Reason: Mild Anxiety (score 1/3) Last Admin: 08/24/18 14:55 Dose: 50 mg Documented by: Nicardipine/Dextrose (Cardene-Dex 20 Mg/200 Ml Soln) 25 mg in 250 mls @ 50 mls/hr IV .Q5H PRN PRN Reason: see instructions Famotidine 20 mg/ Sodium (Chloride) 10 mls @ 300 mls/hr IV X1 PRN PRN Reason: Allergic Reaction Insulin Glargine (Lantus (Bkc)) 20 units SC DINNER [facility] Insulin Human Lispro (Humalog Kwikpen (Bkc)) 0 unit SC ACHS & 3AM KUNAL; Protocol Last Admin: 08/26/18 08:14 Dose: 3 u Documented by: Labetalol HCl (Trandate) 20 mg IV X1 PRN PRN Reason: BP MANAGEMENT Lisinopril (Zestril) 20 mg PO DAILY [facility] Last Admin: 08/26/18 08:15 Dose: 20 mg Documented by: Lorazepam (Ativan) 1 mg IV Q2H PRN PRN PRN Reason: Severe Anxiety Last Admin: 08/25/18 21:00 Dose: 1 mg Documented by: Lorazepam (Ativan) 2 mg IV X1 PRN PRN Reason: Seizure Methocarbamol (Methocarbamol) 750 mg PO Q6H PRN PRN PRN Reason: Muscle Aches Last Admin: 08/25/18 11:58 Dose: 750 mg Documented by: Methylprednisolone (Solu-Medrol) 125 mg IV X1 PRN PRN Reason: Allergic Reaction Metoprolol Succinate (Toprol Xl (Beta Thiago)) 100 mg PO DAILY [facility] Last Admin: 08/26/18 08:15 Dose: 100 mg Documented by: [facility]it[facility]amin) [facility] Last Admin: 08/26/18 08:15 Dose: 1 tablet Documented by: Nicotine (Nicoderm Cq (Pbkc)) 21 mg TRANSDERM. DAILY [facility] Last Admin: 08/26/18 08:18 Dose: 21 mg Documented by: Ondansetron HCl (Zofran) 4 mg IV Q8H PRN PRN PRN Reason: NAUSEA/VOMITING Pantoprazole Sodium (Protonix) 40 mg PO DAILY KUNAL Last Admin: 08/26/18 08:16 Dose: 40 mg Documented by: Sodium Chloride () 10 - 40 ml IV UD PRN PRN Reason: SALINE FLUSH Last Admin: 08/26/18 02:13 Dose: 20 ml Documented by: Medical Necessity - Tobacco Use Smoking Status: Current every day smoker Tobacco Use: Cigarettes Assessment/Plan All Active Problems (Last Reviewed 06/13/18 @ 08:39 by Марина Ku) Alcohol withdrawal (Acute) SVT (supraventricular tachycardia) (Acute) History of aortic aneurysm repair (Resolved ~2017) History of aortic valve replacement with bioprosthetic valve (Resolved ~2016) Shortness of breath (Acute) Pleuritic chest pain (Acute) 1. Left-sided CVA -There is a stroke alert called yesterday at 345 and it was determined that his NIH was 9 and he had a CTA of his head and neck which was negative for large vessel occlusion, and he was given TPA -His symptoms at that time were no movement in his right lower extremity and diminished movement in his right upper extremity. These have resolved -Neurology to see the patient today -He has a pacemaker and a valve and therefore will likely not qualify for an MRI of the brain however he has had symptom resolution 2. Alcohol withdrawal/depression - CIWA of 19 -Strength with his fifth of vodka yesterday -Continue with [facility] protocol for alcohol withdrawal -Continue with Prozac and venlafaxine 3. HTN/HLD/aortic aneurysm status post repair with aortic valve replacement/sick sinus syndrome status post pacemaker -Currently all is stable -Tinea with lisinopril, metoprolol, and Lipitor 4. GERD -Stable -Continue with PPI 5. DM 2 -Insulin-dependent, will continue with his home Levemir, but will reduce the dose to 20 units as he was hypoglycemic today -Accu-Cheks AC at bedtime DVT: Ambulation Code Visit Inpatient E&M: 51562 Subs Hosp L2
--- NOTE | 2018-08-26 10:01 | CASEMGMT ---
Social Work SW saw pt and completed a PHQ9 due to stroke diagnosis. Pt scored 7 indicating mild depression. PT stating that sleeping issues are more related to working third shift than to depression. Pt stating his son three years ago and since this time he has seen a therapist at [facility] and a grief counselor and is taking an anti depressant. Pt also stating prior to hospitalization he had called his therapist and set up an appointment for next Wednesday. Upon discharge pt is planning to utilize the services of [facility] and [facility] to address alcoholism. Pt lives with his father and plans to return there upon d/c. Pt stating there is no longer any alcohol in the home. No further SW needs at this time. MAEGAN Da Silva
--- NOTE | 2018-08-26 10:24 | CASEMGMT ---
RN ZURI [employer]Y [employer] INSPECTOR CM to room to meet with patient for initial transition planning/care coordination assessment. ELIS KEATING introduced self and role at [facility]. Pt voices understanding and consents to assessment at this time. Pt resting in bed in no distress at this time. Pt is A/O at this time and answers all questions appropriately. Care providers, pharmacy, and demographics verified at this time. PCP: [facility] Specialists: Denies Preferred Pharmacy: [facility] Insurance: [employer] through his employer Prescription Benefit: Yes Living Will/HPOA: [facility] does not have HCPOA but would like to talk to about this. consult placed for assistance w/AD and Flor MOSCOSO, made aware. LNOK: Daughter, Father Living Arrangements: Lives with his father. Independent w/ADL's. Works 3rd shift. Transportation: Pt states drives self and states no transportation concerns at this time. States his dad will drive him home @ discharge. DME: States has the following DME: Glucometer. States it is working properly and has needed supplies for it. States he is almost out of lancets but that he gets them @ [facility] pharmacy and that there are refills on it. He plans to pick them up from [facility] after he is discharged. Pt states no need for further DME at this time. HHC/SNF: No history of either. Denies needs and no needs identified. Pt wishes to return home and states has no concerns with going home at time of discharge. CM to follow for any discharge planning/needs. Pt voices no further concerns/needs at this time. Advised pt to ask for CM if any further questions/concerns/needs arise. Voices understanding. Pt goal for discharge: Home w/follow-up @ [facility] and counselor. See BLANKA note. D/C Plan: Home w/discharge plans in place. Darleen BOLIVAR RN, CM
--- NOTE | 2018-08-26 11:02 | CON.PCM_ITS ---
Problem List (1) Alcohol withdrawal Status: Acute (2) SVT (supraventricular tachycardia) Status: Acute (3) History of aortic aneurysm repair Status: Resolved Comment: 2005 @ [facility]; and 2016 @ [facility] (4) Pure hypercholesterolemia Status: Chronic (5) Left carotid bruit Status: Chronic (6) History of aortic valve replacement with bioprosthetic valve Status: Resolved Comment: aortic valve replacement with mechanical valve 01/22/15; redo aortic valve replacement with a Bovine Valve [facility] 2016 (7) Cardiac pacemaker in situ Status: Chronic (8) Essential hypertension Status: Chronic (9) Sick sinus syndrome Status: Chronic (10) Diabetes mellitus, type II Status: Chronic Qualifiers: (11) Tobacco use Status: Chronic Reason for Consult Date of Consultation: 08/26/18 Reason for Consultation: Status post TPA History of Present Illness: The patient is a 58 year old M, with past medical history listed below, who presented to [facility] on 08/24/2018 stating that he wanted to undergo the alcohol tox program. Patient reportedly drank up to 1/5 of vodka a day and blacks out frequently. Patient does have a history of an aortic valve replacement and pacemaker secondary to sick sinus syndrome. Patient was admitted to the floor on the [facility] protocol and was doing well. Yesterday at 3:45 PM, stroke alert was called secondary to being unsteady on his feet and complaining of dizziness. Patient's blood sugar was checked and noted to be 140. Patient was then found to have right lower extremity weakness and a stroke team was called. Patient did have a CT scan showing no acute hemorrhage. NIH assessment at that time was 9, so patient went ahead with TPA. Patient has been watched in the intensive care unit. Overnight, patient has done relatively well. No bleeding complications have been reported. Patient's NIH has decreased down to 0. Patient did have an element of hypoglycemia and attempts at p.o. improvement were unsuccessful. Patient did respond to D50 and has been doing well ever since. Patient currently has no complaints at this time. Patient states that he wants to get out of bed, but understands the risk of bleeding. Patient is not reporting any signs or symptoms of withdrawal from alcohol on my evaluation. Review of systems otherwise negative x10 systems. Past Medical History Past Medical History (Chronic Problems): Chronic Problems (Last Reviewed 05/06/19 @ 08:39 by Марина Ku) Pure hypercholesterolemia (Chronic) Left carotid bruit (Chronic) Cardiac pacemaker in situ (Chronic ~06/2016) Essential hypertension (Chronic) 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) Sick sinus syndrome (Chronic) Diabetes mellitus, type II (Chronic) Tobacco use (Chronic) Medical History: Medical History (Last Reviewed 06/13/18 @ 08:39 by Марина Ku) SVT (supraventricular tachycardia) (Acute) I47.1 Pure hypercholesterolemia (Chronic) E78.00 Left carotid bruit (Chronic) R09.89 Cardiac pacemaker in situ (Chronic) Onset Date: ~06/2016 Z95.0 Essential hypertension (Chronic) I10 Shortness of breath (Acute) R06.02 Pleuritic chest pain (Acute) R07.81 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) Sick sinus syndrome (Chronic) I49.5 Diabetes mellitus, type II (Chronic) E11.9 Tobacco use (Chronic) Z72.0 Ascending aortic dissection Onset Date: ~2005 I71.01 Adrenal nodule E27.9 Left Hiatal hernia K44.9 Aortic aneurysm (Inactive) I71.9 HTN (hypertension) (Inactive) I10 Pacemaker (Inactive) Z95.0 Allergies No Known Allergies Allergy (Verified 08/24/18 10:19) Home Medications: Ambulatory Orders Medication Instructions Recorded Insulin Detemir [Levemir] 50 units SUBCUT DINNER 06/20/16 Acetaminophen [Tylenol Tablet] 650 mg PO Q6H PRN PRN #30 tab 12/29/17 atorvastatin 10 mg tablet 10 mg PO QHS 06/10/18 fluoxetine 40 mg capsule 40 mg PO DAILY 06/10/18 metoprolol succinate ER 100 mg 100 mg PO DAILY 06/10/18 tablet,extended release 24 hr omeprazole 40 mg capsule,delayed 40 mg PO DAILY 06/10/18 release Amlodipine Besylate [Norvasc] 5 mg PO DAILY 08/24/18 Glimepiride [Amaryl] 2 mg PO DAILY 08/24/18 Hydrochlorothiazide 12.5 mg PO DAILY 08/24/18 Metformin HCl [Glucophage Xr] 750 mg PO DAILY 08/24/18 Ramipril 10 mg PO DAILY 08/24/18 Surgical History: Surgical History (Last Reviewed 06/13/18 @ 08:39 by Марина Ku) History of aortic aneurysm repair (Resolved) Onset Date: ~2016 Z98.890, Z86.79 2006 @ [facility]; and 2017 @ [facility] History of aortic valve replacement with bioprosthetic valve (Resolved) Onset Date: ~2016 Z95.3 aortic valve replacement with mechanical valve 01/22/15; redo aortic valve replacement with a Bovine Valve [facility] 2017 History of cataract surgery Z98.49 History of hernia repair Z98.890, Z87.19 H/O aortic valve replacement (Inactive) Z95.2 Surgical History: - - Aortic aneurysm repair and aortic valve replacement (bovine) with total 3 separate surgies, most recent 04/2016 [facility], R inguinal hernia repair. Psychiatric History: No pertinent psych hx Smoking Status: Current every day smoker Tobacco Use: Cigarettes Alcohol: Heavy Drugs: None - *Family History Maternal Family History: Family History (Last Reviewed 06/13/18 @ 08:39 by Марина Ku) Father CAD (coronary artery disease) Mother Dementia History Items: Dementia Paternal Family History: Family History (Last Reviewed 06/13/18 @ 08:39 by Марина Ku) Father CAD (coronary artery disease) Mother Dementia History Items: Heart Disease Review of Systems Comment: See HPI Patient Problems: Active and Suspected Problems (Last Reviewed 06/13/18 @ 08:39 by Марина Ku) Alcohol withdrawal (Acute) Objective: CT of the head was personally reviewed and shows no acute blockages or extravasation of blood. - Physical Exam General: Alert, Oriented x3, Cooperative, No apparent distress, - - Appears older than stated age. No conversational dyspnea. HEENT: Atraumatic, PERRLA, EOMI, - - Slight scleral injection. No facial droop appreciated. Oral: Moist Mucosa, No Gingival or Mucosal Lesions/ Ulcerations Neck: Supple, No JVD, No Nodes, Trachea Midline Lungs: No rhonchi, No wheeze, No rales, Diminished Cardiovascular: Regular rate, Regular Rhythm, Normal S1, Normal S2, Murmur - Grade 3 out of 6 systolic ejection murmur at the left upper sternal border, No rub noted, No Gallop Abdomen: Bowel Sounds Present, Soft, Non Tender, Non-Distended Extremities: No clubbing, No cyanosis, No edema, Capillary Refill Less than 3 Seconds Skin: No rashes, No breakdown Musculoskeletal: No Tenderness to Palpation of Joints or Extremities Lymphatic: No Cervical, Supraclavicular, or Inguinal Adenopathy Neurological: Cranial nerves II-XII grossly intact, Neuro grossly intact, Motor Exam 5/5 strength throughout, Sensory exam intact to light touch and pain Psych/Mental Status: Alert and oriented to time, place, person, mood and affect Vital Signs Temp Pulse Resp BP Pulse Ox 36.6 C 60 20 H 116/72 98 08/26/18 10:00 08/26/18 10:00 08/26/18 10:00 08/26/18 10:00 08/26/18 10:00 Oxygen Delivery Method Room Air Weight: 78.5 kg Body Mass Index (BMI) 23.5 Finger Stick Blood Glucose 140 Intake and Output for Last 24 Hours 08/24/18 08/25/18 08/26/18 23:59 23:59 23:59 Intake Total 500 / 1337 3054 / 3535 721 / 721 Output Total 301 / 501 350 / 350 Balance 500 / 1337 2753 / 3034 371 / 371 Laboratory Tests Past 24 Hrs 08/25/18 08/26/18 08/26/18 18:00 04:00 04:00 WBC 6.1 RBC 3.65 L Hgb 11.6 L Hct 33.6 L MCV 92.1 MCH 31.8 MCHC 34.5 RDW Std Deviation 43.9 RDW Coeff of Kalpana 13.0 Plt Count 147 L MPV 10.2 Immature Gran % (Auto) 0.700 Neut % (Auto) 73.9 H Lymph % (Auto) 13.6 L [place] % (Auto) 8.7 Eos % (Auto) 2.1 Baso % (Auto) 1.0 Absolute Neuts (auto) 4.5 Absolute Lymphs (auto) 0.83 Absolute Nucleated RBC 0.00 Nucleated RBC % 0 Sodium 141 Potassium 3.9 Chloride 110 H Carbon Dioxide 24.0 Anion Gap 7 BUN 14 Creatinine 1.12 Estim Creat Clear Calc 78.44 Est GFR (MDRD) Af Amer 87 Est GFR (MDRD) Non-Af 72 BUN/Creatinine Ratio 12.5 Glucose 222 H Calcium 8.1 L Troponin I < 0.015 Triglycerides 96 Cholesterol 100 LDL Cholesterol 42 VLDL Cholesterol 19 HDL Cholesterol 39 L POC Glucose 08/26/18 08/26/18 08/26/18 06:47 02:35 02:10 POC Glucose 207 H 261 H 248 H 08/26/18 08/25/18 08/25/18 01:58 21:09 15:46 POC Glucose 42 L* 346 H 146 H 08/25/18 08/25/18 15:29 11:43 POC Glucose 140 H 298 H Clinical Impression(s) from Imaging Studies Brain CT 08/25/18 15:50 IMPRESSION: Normal unenhanced CT scan of the brain. Electronically Signed: Orlin Stephens MD at 16:07 EDT , Service support , ADDENDUM: 08/25/18 1617 IMPRESSION: Normal unenhanced CT scan of the brain. N.B. : The above information has been verbally conveyed by Orlin Stephens MD to Lucas Frausto MD, on 08/25/2018 16:10:43 (ET). Electronically Signed: Orlin Stephens MD at 16:07 EDT , Service support , Head/Neck CTA 08/25/18 16:16 IMPRESSION: Normal CTA Head and neck with contrast. Electronically Signed: Orlin Stephens MD at 17:31 EDT , Service support , Assessment/Plan Active and Suspected Problems (Last Reviewed 06/13/18 @ 08:39 by Марина Ku) Alcohol withdrawal (Acute) RECOMMENDATIONS: 1. Continue with status post TPA protocol 2. Await neurology recommendations 3. Await repeat CT scan 4. Monitor with CIWA protocol 5. Continue blood sugar checks IMPRESSIONS: 1. Acute CVA status post TPA Patient with excellent results related to the use of TPA. Patient is currently on the protocol and has an NIH of 0. Neurology is to see the patient today. Clinical significant changes on CTA are unlikely given minimal symptoms. Patient may be better served by obtaining MRI, but hardware precludes this examination. Patient will need to have aspirin after CT scan if no hemorrhages noted. 2. Alcohol withdrawal/depression Patient currently on the CIWA protocol and tolerating well. No indication for Precedex at this time. 3. Hypertension/hyperlipidemia/status post aortic valve replacement/sick sinus syndrome/GERD/diabetes mellitus type 2 Complicates care, management, recovery and prognosis. Patient is insulin- dependent and had decreased p.o. intake overnight secondary to stroke protocol. This likely accounts for patient's hypoglycemia. Continue to monitor and treat with sliding scale insulin. Okay to continue other medications. Code Visit Inpatient E&M: 26882 Init Hosp L2
[2018-08-26 11:26] LABS: Bedside Glucose 127 mg/dL (70-110)
--- NOTE | 2018-08-26 11:56 | NEWVISION ---
Patient is set up to return to [facility] on Wednesday08/29/18 for their walk-in clinic to resume IOP and groups. Patient has follow up appointment with his personal therapist on 09-02-18.
--- NOTE | 2018-08-26 13:17 | PCM.CONS.GEN ---
Problem List (1) Stroke Status: Acute Reason for Consult Date of Consultation: 08/26/18 Reason for Consultation: Stroke History of Present Illness: The patient is a 58 year old M with PMH HTN, HLD, DM, aortic valve replacement, sick sinus syndrome status post pacer, EtOH abuse, tobacco abuse admitted with alcohol-related issues and to enter alcohol detox program. Yesterday 08/25/2018 at 3:45 PM stroke alert was called as patient was unsteady on his feet, complained of dizziness, was found to have right-sided weakness, NIHSS stroke scale was 9, telestroke consultatio was done with [facility] who deemed the patient is a candidate for TPA, patient was given TPA, CT head showed no hemorrhage, CTA head/neck did not show any LVO, at present per patient his right-sided weakness has improved much, denies any headache at present, denies any dizziness visual disturbances or speech disturbances or facial droop at present. Per patient he drinks about 1/5 of vodka daily to every other day. [] Past Medical History Past Medical History (Chronic Problems): Chronic Problems (Last Reviewed 06/13/18 @ 08:39 by Марина Ku) Pure hypercholesterolemia (Chronic) Left carotid bruit (Chronic) Cardiac pacemaker in situ (Chronic ~06/2016) Essential hypertension (Chronic) 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) Sick sinus syndrome (Chronic) Diabetes mellitus, type II (Chronic) Tobacco use (Chronic) Medical History: Medical History (Last Reviewed 06/13/18 @ 08:39 by Марина Ku) SVT (supraventricular tachycardia) (Acute) I47.1 Pure hypercholesterolemia (Chronic) E78.00 Left carotid bruit (Chronic) R09.89 Cardiac pacemaker in situ (Chronic) Onset Date: ~06/2016 Z95.0 Essential hypertension (Chronic) I10 Shortness of breath (Acute) R06.02 Pleuritic chest pain (Acute) R07.81 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) Sick sinus syndrome (Chronic) I49.5 Diabetes mellitus, type II (Chronic) E11.9 Tobacco use (Chronic) Z72.0 Ascending aortic dissection Onset Date: ~2005 I71.01 Adrenal nodule E27.9 Left Hiatal hernia K44.9 Aortic aneurysm (Inactive) I71.9 HTN (hypertension) (Inactive) I10 Pacemaker (Inactive) Z95.0 Allergies No Known Allergies Allergy (Verified 08/24/18 10:19) Home Medications: Ambulatory Orders Medication Instructions Recorded Insulin Detemir [Levemir] 50 units SUBCUT DINNER 06/20/16 Acetaminophen [Tylenol Tablet] 650 mg PO Q6H PRN PRN #30 tab 12/29/17 atorvastatin 10 mg tablet 10 mg PO QHS 06/10/18 fluoxetine 40 mg capsule 40 mg PO DAILY 06/10/18 metoprolol succinate ER 100 mg 100 mg PO DAILY 06/10/18 tablet,extended release 24 hr omeprazole 40 mg capsule,delayed 40 mg PO DAILY 06/10/18 release Amlodipine Besylate [Norvasc] 5 mg PO DAILY 08/24/18 Glimepiride [Amaryl] 2 mg PO DAILY 08/24/18 Hydrochlorothiazide 12.5 mg PO DAILY 08/24/18 Metformin HCl [Glucophage Xr] 750 mg PO DAILY 08/24/18 Ramipril 10 mg PO DAILY 08/24/18 Surgical History: Surgical History (Last Reviewed 06/13/18 @ 08:39 by Марина Ku) History of aortic aneurysm repair (Resolved) Onset Date: ~2016 Z98.890, Z86.79 2006 @ [facility]; and 2017 @ [facility] History of aortic valve replacement with bioprosthetic valve (Resolved) Onset Date: ~2017 Z95.3 aortic valve replacement with mechanical valve 01/22/15; redo aortic valve replacement with a Bovine Valve CC 2017 History of cataract surgery Z98.49 History of hernia repair Z98.890, Z87.19 H/O aortic valve replacement (Inactive) Z95.2 Surgical History: - - Aortic aneurysm repair and aortic valve replacement (bovine) with total 3 separate surgies, most recent 04/2016 [facility], R inguinal hernia repair. Psychiatric History: No pertinent psych hx Smoking Status: Current every day smoker Tobacco Use: Cigarettes Alcohol: Heavy Drugs: None - *Family History Maternal Family History: Family History (Last Reviewed 06/13/18 @ 08:39 by Марина Ku) Father CAD (coronary artery disease) Mother Dementia History Items: Dementia Paternal Family History: Family History (Last Reviewed 06/13/18 @ 08:39 by Марина Ku) Father CAD (coronary artery disease) Mother Dementia History Items: Heart Disease Review of Systems Constitutional: Reports: - - Complete ROS negative except as documented in HPI Patient Problems: Active and Suspected Problems (Last Reviewed 06/13/18 @ 08:39 by Марина Ku) Alcohol withdrawal (Acute) Stroke (Acute) - Physical Exam General: Alert HEENT: Normocephalic Neck: Supple Lungs: Normal air movement Cardiovascular: Normal S1, Normal S2 Abdomen: Bowel Sounds Present Extremities: No cyanosis Neurological: - - Conscious, alert, cranial nerves II through XII grossly intact, power 5 x 5 left upper and lower extremities, 5 out of 5 right upper extremity, + 4 x 5 right lower extremity,? Right upper extremity pronator drift, no sensory loss, no cerebellar signs, no aphasia or dysarthria, NIHSS 1 at present, mRS 0 at baseline Psych/Mental Status: Normal Affect Vital Signs Temp Pulse Resp BP Pulse Ox 96.9 F L 60 19 H 110/70 95 08/26/18 12:00 08/26/18 12:00 08/26/18 12:00 08/26/18 12:00 08/26/18 12:00 Oxygen Delivery Method Room Air Weight: 78.5 kg Body Mass Index (BMI) 23.5 Finger Stick Blood Glucose 140 Intake and Output for Last 24 Hours 08/24/18 08/25/18 08/26/18 23:59 23:59 23:59 Intake Total 500 / 1337 3054 / 3535 1501 / 1501 Output Total 301 / 501 900 / 900 Balance 500 / 1337 2753 / 3034 601 / 601 Laboratory Tests Past 24 Hrs 08/25/18 08/26/18 08/26/18 18:00 04:00 04:00 WBC 6.1 RBC 3.65 L Hgb 11.6 L Hct 33.6 L MCV 92.1 MCH 31.8 MCHC 34.5 RDW Std Deviation 43.9 RDW Coeff of Kalpana 13.0 Plt Count 147 L MPV 10.2 Immature Gran % (Auto) 0.700 Neut % (Auto) 73.9 H Lymph % (Auto) 13.6 L [place] % (Auto) 8.7 Eos % (Auto) 2.1 Baso % (Auto) 1.0 Absolute Neuts (auto) 4.5 Absolute Lymphs (auto) 0.83 Absolute Nucleated RBC 0.00 Nucleated RBC % 0 Sodium 141 Potassium 3.9 Chloride 110 H Carbon Dioxide 24.0 Anion Gap 7 BUN 14 Creatinine 1.12 Estim Creat Clear Calc 78.44 Est GFR (MDRD) Af Amer 87 Est GFR (MDRD) Non-Af 72 BUN/Creatinine Ratio 12.5 Glucose 222 H Calcium 8.1 L Troponin I < 0.015 Triglycerides 96 Cholesterol 100 LDL Cholesterol 42 VLDL Cholesterol 19 HDL Cholesterol 39 L POC Glucose 08/26/18 08/26/18 08/26/18 11:17 06:47 02:35 POC Glucose 127 H 207 H 261 H 08/26/18 08/26/18 08/25/18 02:10 01:58 21:09 POC Glucose 248 H 42 L* 346 H 08/25/18 08/25/18 08/25/18 15:46 15:29 11:43 POC Glucose 146 H 140 H 298 H Assessment/Plan All Active Problems (Last Reviewed 06/13/18 @ 08:39 by Марина Ku) Alcohol withdrawal (Acute) Stroke (Acute) SVT (supraventricular tachycardia) (Acute) History of aortic aneurysm repair (Resolved ~2016) History of aortic valve replacement with bioprosthetic valve (Resolved ~2016) Shortness of breath (Acute) Pleuritic chest pain (Acute) The patient is a 58 year old M with PMH HTN, HLD, DM, aortic valve replacement, sick sinus syndrome status post pacer, EtOH abuse, tobacco abuse admitted with alcohol-related issues and to enter alcohol detox program. Yesterday 08/25/2018 at 3:45 PM stroke alert was called as patient was unsteady on his feet, complained of dizziness, was found to have right-sided weakness, NIHSS stroke scale was 9, telestroke consultatio was done with [facility] who deemed the patient is a candidate for TPA, patient was given TPA, CT head showed no hemorrhage, CTA head/neck did not show any LVO, at present per patient his right-sided weakness has improved much, denies any headache at present, denies any dizziness visual disturbances or speech disturbances or facial droop at present. Per patient he drinks about 1/5 of vodka daily to every other day. Impression Possible Left MCA stroke Plan ?Repeat 24-hour CT head ?MRI brain cannot be done as patient is a pacer ?Aspirin 81 mg p.o. once daily after the 24-hour post TPA CT head rules out hemorrhage ?Lipitor 40 mg p.o. nightly ?TTE ?LDL?42, HbA1c pending ?Permissive hypertension for 24 hours followed by goal blood pressure less than 130/80 mmHg and goal HbA1c less than 7% ?CIWA protocol ?Stroke risk factors discussed and stroke education provided ?PT/OT ?GI/DVT prophylaxis?start DVT prophylaxis after 24 hours of IV TPA if repeat CT head at 24 hours does not show any hemorrhage plan ?Fall precautions ?Further medical management per hospitalist team ?Follow-up with neurology as outpatient in 2 to 3 weeks after discharge ?Please call with questions if any ?Thank you for allowing us to participate in patient's care and management Code Visit Inpatient E&M: [id number] Init Hosp L3
--- NOTE | 2018-08-26 13:44 | CASEMGMT ---
Social Work Received referral from RN ZURI that pt would like info on advance directives. SW met with pt. He is very sleepy and denies wanting to talk about AD at this time. SW left rack card with info and number to call should he want to discuss. Sally Ku, CHANGE ADVISOR
--- NOTE | 2018-08-26 16:49 | CHAPLAIN ---
Type of Pastoral Visit ___ Initial Visit _x__ Follow-up Visit ___ On-call Visit ___ General Patient Visit ___ Spiritual Assessment ___ Family Conference ___ Bereavement ___ Rapid Response ___ Code Blue ___ Other (describe below) Pastoral Care Referral From _x__ Patient _x__ Family ___ Nurse ___ Physician ___ Mortgage Loan Officer Originator ___ Doctor Naturopathic ___ Other (describe below) Sacrament/Intervention ___ Active listening ___ Anointing ___ Temple ___ Bereavement ___ Communion ___ Diana exploration ___ ___ Life review ___ Prayer ___ Reconciliation ___ Sacrament of Sick ___ Supportive presence ___ Wedding _x__ Other (describe below) Pastoral Comments patient was sleeping but father of pt was sitting in room; father is offered support and conversation; father is spiritually active and welcomes the support; father invites manager utilization review to return for another attempt at visit another time
[2018-08-26 17:10] LABS: Bedside Glucose 207 mg/dL (70-110)
--- NOTE | 2018-08-26 18:03 | CT_ITS ---
STUDY: CT BRAIN WITHOUT CONTRAST REASON FOR EXAM: Male, 58 years old. Post TPA. Alcohol withdrawal. RADIATION DOSAGE (If Supplied By Facility): CTDIvol = ( 44.99 ) mGy, DLP = ( 762.36 ) mGycm TECHNIQUE: Transaxial CT imaging of the brain was performed without administration of intravenous contrast material. Individualized dose optimization techniques were used for this CT. COMPARISON: 08/25/2018. FINDINGS: There is no acute bleed or infarct. There are normal white matter tracts. The ventricles are normal in configuration. There is no hydrocephalus. The visualized paranasal sinuses are clear. The mastoid air cells are well aerated. There is no skull fracture. CT/Brain/Head without Contrast IMPRESSION: No acute intracranial abnormality. Electronically Signed: Chencho Ruiz, at 18:37 EDT Tel , Service support ,
[2018-08-26 20:16] LABS: Bedside Glucose 73 mg/dL (70-110)
[2018-08-26] MEDS: Atorvastatin Calcium 40 MG Tablet PO (21:12)
[2018-08-26] MEDS: Acetaminophen 325 MG Tablet 650 MG PO (21:13)
[2018-08-26 21:21] LABS: Bedside Glucose 190 mg/dL (70-110)
[2018-08-26] MEDS: Methocarbamol 750 MG Tablet PO (21:47)
[2018-08-27] VITALS (15 sets, daily range): BP systolic 99–157; BP diastolic 72–98; PULSE 60–63; RESP 12–20; TEMP 36.1–36.8; O2SAT 96–99
[2018-08-27 02:16] LABS: Bedside Glucose 108 mg/dL (70-110)
[2018-08-27] MEDS: chlordiazePOXIDE 25 MG Capsule PO (05:07)
[2018-08-27 06:41] LABS: Bedside Glucose 191 mg/dL (70-110)
--- NOTE | 2018-08-27 07:00 | PN_ITS ---
Subjective: Patient did well overnight. Patient did have his CT scan which showed no acute bleed. Patient unable to have MRI secondary to pacemaker. Patient with no complaints at this time. Nursing reports minimal CIWA scale overnight. General: Alert, Oriented x3, Cooperative, No apparent distress, Well developed, Well nourished, - - No conversational dyspnea. No facial droop appreciated. HEENT: Atraumatic, PERRLA, EOMI, Normocephalic, - - No scleral icterus or injection noted. Oral: Moist Mucosa, No Gingival or Mucosal Lesions/ Ulcerations Neck: Supple, No JVD, No Nodes, Trachea Midline Lungs: Clear to auscultation, Normal air movement, No rhonchi, No wheeze, No rales Cardiovascular: Regular rate, Regular Rhythm, Normal S1, Normal S2, Murmur - Unchanged, No rub noted, No Gallop Abdomen: Bowel Sounds Present, Soft, Non Tender, Non-Distended Extremities: No clubbing, No cyanosis, No edema, Capillary Refill Less than 3 Seconds Skin: No rashes, No breakdown Musculoskeletal: No Tenderness to Palpation of Joints or Extremities Lymphatic: No Cervical, Supraclavicular, or Inguinal Adenopathy Neurological: Cranial nerves II-XII grossly intact, Neuro grossly intact, Motor Exam 5/5 strength throughout Psych/Mental Status: Alert and oriented to time, place, person, mood and affect Vital Signs Temp Pulse Resp BP Pulse Ox 36.8 C 60 20 H 109/73 97 08/27/18 06:00 08/27/18 06:00 08/27/18 06:00 08/27/18 06:00 08/27/18 06:00 Oxygen Delivery Method Room Air Weight: 78.5 kg Body Mass Index (BMI) 23.5 Finger Stick Blood Glucose 140 Intake and Output for Last 24 Hours 08/25/18 08/26/18 08/27/18 23:59 23:59 23:59 Intake Total 3054 / 3535 2041 / 2521 840 / 840 Output Total 301 / 501 1350 / 1600 650 / 650 Balance 2753 / 3034 691 / 921 190 / 190 Labs (Last 48 Hours) 08/24/18 08/24/18 08/25/18 22:33 22:37 11:43 WBC RBC Hgb Hct MCV MCH MCHC RDW Std Deviation RDW Coeff of Kalpana Plt Count MPV Immature Gran % (Auto) Neut % (Auto) Lymph % (Auto) [place] % (Auto) Eos % (Auto) Baso % (Auto) Absolute Neuts (auto) Absolute Lymphs (auto) Absolute Nucleated RBC Nucleated RBC % Sodium Potassium Chloride Carbon Dioxide Anion Gap BUN Creatinine Estim Creat Clear Calc Est GFR (MDRD) Af Amer Est GFR (MDRD) Non-Af BUN/Creatinine Ratio Glucose Calcium Troponin I Triglycerides Cholesterol LDL Cholesterol VLDL Cholesterol HDL Cholesterol POC Glucose 487 H* 487 H* 298 H 08/25/18 08/25/18 08/25/18 15:29 15:46 18:00 WBC RBC Hgb Hct MCV MCH MCHC RDW Std Deviation RDW Coeff of Kalpana Plt Count MPV Immature Gran % (Auto) Neut % (Auto) Lymph % (Auto) [place] % (Auto) Eos % (Auto) Baso % (Auto) Absolute Neuts (auto) Absolute Lymphs (auto) Absolute Nucleated RBC Nucleated RBC % Sodium Potassium Chloride Carbon Dioxide Anion Gap BUN Creatinine Estim Creat Clear Calc Est GFR (MDRD) Af Amer Est GFR (MDRD) Non-Af BUN/Creatinine Ratio Glucose Calcium Troponin I < 0.015 Triglycerides Cholesterol LDL Cholesterol VLDL Cholesterol HDL Cholesterol POC Glucose 140 H 146 H 08/25/18 08/26/18 08/26/18 21:09 01:58 02:10 WBC RBC Hgb Hct MCV MCH MCHC RDW Std Deviation RDW Coeff of Kalpana Plt Count MPV Immature Gran % (Auto) Neut % (Auto) Lymph % (Auto) [place] % (Auto) Eos % (Auto) Baso % (Auto) Absolute Neuts (auto) Absolute Lymphs (auto) Absolute Nucleated RBC Nucleated RBC % Sodium Potassium Chloride Carbon Dioxide Anion Gap BUN Creatinine Estim Creat Clear Calc Est GFR (MDRD) Af Amer Est GFR (MDRD) Non-Af BUN/Creatinine Ratio Glucose Calcium Troponin I Triglycerides Cholesterol LDL Cholesterol VLDL Cholesterol HDL Cholesterol POC Glucose 346 H 42 L* 248 H 08/26/18 08/26/18 08/26/18 02:35 04:00 04:00 WBC 6.1 RBC 3.65 L Hgb 11.6 L Hct 33.6 L MCV 92.1 MCH 31.8 MCHC 34.5 RDW Std Deviation 43.9 RDW Coeff of Kalpana 13.0 Plt Count 147 L MPV 10.2 Immature Gran % (Auto) 0.700 Neut % (Auto) 73.9 H Lymph % (Auto) 13.6 L [place] % (Auto) 8.7 Eos % (Auto) 2.1 Baso % (Auto) 1.0 Absolute Neuts (auto) 4.5 Absolute Lymphs (auto) 0.83 Absolute Nucleated RBC 0.00 Nucleated RBC % 0 Sodium 141 Potassium 3.9 Chloride 110 H Carbon Dioxide 24.0 Anion Gap 7 BUN 14 Creatinine 1.12 Estim Creat Clear Calc 78.44 Est GFR (MDRD) Af Amer 87 Est GFR (MDRD) Non-Af 72 BUN/Creatinine Ratio 12.5 Glucose 222 H Calcium 8.1 L Troponin I Triglycerides 96 Cholesterol 100 LDL Cholesterol 42 VLDL Cholesterol 19 HDL Cholesterol 39 L POC Glucose 261 H 08/26/18 08/26/18 08/26/18 06:47 11:17 16:00 WBC RBC Hgb Hct MCV MCH MCHC RDW Std Deviation RDW Coeff of Kalpana Plt Count MPV Immature Gran % (Auto) Neut % (Auto) Lymph % (Auto) [place] % (Auto) Eos % (Auto) Baso % (Auto) Absolute Neuts (auto) Absolute Lymphs (auto) Absolute Nucleated RBC Nucleated RBC % Sodium Potassium Chloride Carbon Dioxide Anion Gap BUN Creatinine Estim Creat Clear Calc Est GFR (MDRD) Af Amer Est GFR (MDRD) Non-Af BUN/Creatinine Ratio Glucose Calcium Troponin I Triglycerides Cholesterol LDL Cholesterol VLDL Cholesterol HDL Cholesterol POC Glucose 207 H 127 H 207 H 08/26/18 08/26/18 08/27/18 20:10 21:04 02:10 WBC RBC Hgb Hct MCV MCH MCHC RDW Std Deviation RDW Coeff of [place] Plt Count MPV Immature Gran % (Auto) Neut % (Auto) Lymph % (Auto) [place] % (Auto) Eos % (Auto) Baso % (Auto) Absolute Neuts (auto) Absolute Lymphs (auto) Absolute Nucleated RBC Nucleated RBC % Sodium Potassium Chloride Carbon Dioxide Anion Gap BUN Creatinine Estim Creat Clear Calc Est GFR (MDRD) Af Amer Est GFR (MDRD) Non-Af BUN/Creatinine Ratio Glucose Calcium Troponin I Triglycerides Cholesterol LDL Cholesterol VLDL Cholesterol HDL Cholesterol POC Glucose 73 190 H 108 08/27/18 06:35 WBC RBC Hgb Hct MCV MCH MCHC RDW Std Deviation RDW Coeff of [place] Plt Count MPV Immature Gran % (Auto) Neut % (Auto) Lymph % (Auto) [place] % (Auto) Eos % (Auto) Baso % (Auto) Absolute Neuts (auto) Absolute Lymphs (auto) Absolute Nucleated RBC Nucleated RBC % Sodium Potassium Chloride Carbon Dioxide Anion Gap BUN Creatinine Estim Creat Clear Calc Est GFR (MDRD) Af Amer Est GFR (MDRD) Non-Af BUN/Creatinine Ratio Glucose Calcium Troponin I Triglycerides Cholesterol LDL Cholesterol VLDL Cholesterol HDL Cholesterol POC Glucose 191 H Clinical Impression(s) from Imaging Studies Brain CT 08/26/18 18:03 IMPRESSION: No acute intracranial abnormality. Electronically Signed: Chencho Ruiz, at 18:37 EDT Tel , Service support , Medical Necessity - Tobacco Use Smoking Status: Current every day smoker Tobacco Use: Cigarettes Assessment/Plan All Active Problems (Last Reviewed 06/13/18 @ 08:39 by Марина Ku) Alcohol withdrawal (Acute) Stroke (Acute) SVT (supraventricular tachycardia) (Acute) History of aortic aneurysm repair (Resolved ~2017) History of aortic valve replacement with bioprosthetic valve (Resolved ~2017) Shortness of breath (Acute) Pleuritic chest pain (Acute) RECOMMENDATIONS: 1. Hemodynamically stable on room air. Will sign off from a critical care perspective 2. Await neurology recommendations 3. Monitor with CIWA protocol 4. Continue blood sugar checks IMPRESSIONS: 1. Acute CVA status post TPA Patient with excellent results related to the use of TPA. Patient is cu rrently on the protocol and has an NIH of 0. Neurology has seen the patient yesterday. Clinical significant changes on CTA are unlikely given minimal symptoms. Patient may be better served by obtaining MRI, but hardware precludes this examination. Defer to neurology on initiation of aspirin therapy 2. Alcohol withdrawal/depression Patient currently on the CIWA protocol and tolerating well. No indication for Precedex at this time. 3. Hypertension/hyperlipidemia/status post aortic valve replacement/sick sinus syndrome/GERD/diabetes mellitus type 2 Complicates care, management, recovery and prognosis. Patient is insulin- dependent and had decreased p.o. intake overnight secondary to stroke protocol. This likely accounts for patient's hypoglycemia. Continue to monitor and treat with sliding scale insulin. Okay to continue other medications. Code Visit Inpatient E&M: 81008 Subs Hosp L2
--- NOTE | 2018-08-27 08:30 | ECHOD_ITS ---
Reason For Study: TIA/CVA Procedure This was a 2D Doppler, Color Flow transthoracic echocardiogram. Exam performed portable in ICU/CCU. Left Ventricle Normal LV size. Moderate concentric left ventricular hypertrophy. Stage 1 diastolic dysfunction. The estimated ejection fraction is 60 %. Right Ventricle There is a pacemaker lead in the right ventricle. Normal systolic function. Atria The left atrium is mildly enlarged. ICD or pacer leads identified within the right atrium. Bubble contrast study negative for right to left interatrial shunt. Mitral Valve Trivial mitral valve insufficiency. Tricuspid Valve Mild tricuspid valve insufficiency. Normal pulmonary artery pressure. Aortic Valve The aortic valve is not well visualized. Bioprosthetic aortic valve. Bioprosthetic Aortic Valve functioning normally. Pulmonic Valve Mild-Moderate (1-2+) eccentric pulmonic valve insufficiency. Pericardium/Pleural No pericardial effusion. Medication Performed a rapid injection of agitated mix of 9 cc saline and 1cc air to assess for atrial septal defect. MMode/2D Measurements & Calculations LVIDd: 4.4 cm IVSd: 1.6 cm LVOT diam: 2.1 cm LVIDs: 2.7 cm LVPWd: 1.4 cm LVOT area: 3.4 cm2 RVDd: 3.7 cm FS: 37.8 % Ao root diam: 3.5 cm LAV(MOD-bp): 86.5 ml LA A4 area: 26.0 cm2 LAV(MOD-bp) Indexed: 45.1 ml/m2 LAV(MOD-sp2): 82.4 ml LAV(MOD-sp4): 89.0 ml RA A4 area: 20.2 cm2 Doppler Measurements & Calculations MV E max natan: 75.2 cm/sec Lat Peak E' Natan: 11.5 cm/sec Med Peak E' Natan: 6.8 cm/sec MV A max natan: 86.1 cm/sec E/E' lat: 6.5 E/E' med: 11.1 MV E/A: 0.87 Ao V2 max: 253.9 cm/sec LV V1 max: 159.0 cm/sec SV(LVOT): 108.3 ml Ao max P.9 mmHg LV V1 max P.1 mmHg Ao V2 mean: 168.7 cm/sec LV V1 mean P.4 mmHg Ao mean P.9 mmHg LV V1 mean: 108.7 cm/sec Ao V2 VTI: 48.3 cm LV V1 VTI: 32.2 cm SAY(I,D): 2.2 cm2 SAY(V,D): 2.1 cm2 PA V2 max: 110.6 cm/sec TR max natan: 236.2 cm/sec TR max P.3 mmHg Interpretation Summary Moderate concentric left ventricular hypertrophy. Stage 1 diastolic dysfunction. Bioprosthetic Aortic Valve functioning normally Mild-Moderate (1-2+) eccentric pulmonic valve insufficiency. No thrombus or vegetation noted, however consider ALBERT for further evaluation if clinical suspicion high The estimated ejection fraction is 60 %. Ordering Physician: Lucas Frausto Referring Physician: Dk Pathak Performed By: Emerald Clay RDCS
--- NOTE | 2018-08-27 08:32 | PN_ITS ---
Patient Problems: Active and Suspected Problems (Last Reviewed 06/13/18 @ 08:39 by Марина Ku) Alcohol withdrawal (Acute) Stroke (Acute) Subjective: Doing well, no residual deficits Vitals/I&O's: Vital Signs Temp Pulse Resp BP Pulse Ox 96.9 F L 60 20 H 157/92 H 96 08/27/18 07:41 08/27/18 07:41 08/27/18 07:41 08/27/18 07:41 08/27/18 07:41 Oxygen Delivery Method Room Air Weight: 173 lb 1.006 oz Body Mass Index (BMI) 23.5 Finger Stick Blood Glucose 140 Intake and Output for Last 24 Hours 08/25/18 08/26/18 08/27/18 23:59 23:59 23:59 Intake Total 3054 / 3535 2041 / 2521 840 / 840 Output Total 301 / 501 1350 / 1600 650 / 650 Balance 2753 / 3034 691 / 921 190 / 190 General: Alert, Oriented x3, Cooperative, No apparent distress HEENT: Atraumatic, PERRLA, EOMI, Normocephalic Oral: Dry Mucosa Neck: Supple, No JVD Lungs: Clear to auscultation, Normal air movement, No rhonchi, No wheeze, No rales Cardiovascular: Regular rate, Regular Rhythm, Normal S1, Normal S2, Murmur - 3/6 LUSB SOURAV Abdomen: Soft, Non Tender, Non-Distended, No Hepato-splenomegaly Extremities: No edema, Capillary Refill Less than 3 Seconds Skin: No rashes, No breakdown Neurological: Neuro grossly intact, Sensory exam intact to light touch and pain Psych/Mental Status: Normal affect, appropriate Laboratory Results 08/26/18 11:17: POC Glucose 127 H 08/26/18 16:00: POC Glucose 207 H 08/26/18 20:10: POC Glucose 73 08/26/18 21:04: POC Glucose 190 H 08/27/18 02:10: POC Glucose 108 08/27/18 06:35: POC Glucose 191 H Current Medications Acetaminophen (Tylenol) 650 mg PO Q6H PRN PRN PRN Reason: Mild Pain (scale 0-3)/T>100.7 Last Admin: 08/26/18 21:13 Dose: 650 mg Documented by: Aspirin (Aspirin, Baby) 81 mg PO DAILY@0800 [facility] Atorvastatin Calcium (Lipitor) 40 mg PO QHS [facility] Last Admin: 08/26/18 21:12 Dose: 40 mg Documented by: Chlordiazepoxide (Librium) 25 mg PO Q12H [facility]; Taper Stop: 08/27/18 16:59 Last Admin: 08/27/18 05:07 Dose: 25 mg Documented by: Chlorhexidine Gluconate () 1 each TOPICAL DAILY [facility] Dextrose (D50w Syringe) 0 gm IV X1 PRN; Protocol PRN Reason: Hypoglycemia Last Admin: 08/26/18 02:13 Dose: 25 gm Documented by: Dicyclomine HCl (Bentyl) 20 mg PO Q6H PRN PRN PRN Reason: abdominal discomfort Diphenhydramine HCl (Benadryl) 50 mg IV X1 PRN PRN Reason: Allergic Reaction Epinephrine HCl () 0.3 mg IM X1 PRN PRN Reason: Allergic Reaction Fluoxetine HCl (Prozac) 40 mg PO DAILY [facility] Last Admin: 08/26/18 08:16 Dose: 40 mg Documented by: Glucagon () 1 mg IM .X1 PRN PRN Reason: Hypoglycemia Hydroxyzine Pamoate (Vistaril Pamoate Capsule) 50 mg PO Q6H PRN PRN PRN Reason: Mild Anxiety (score 1/3) Last Admin: 08/24/18 14:55 Dose: 50 mg Documented by: Nicardipine/Dextrose (Cardene-Dex 20 Mg/200 Ml Soln) 25 mg in 250 mls @ 50 mls/hr IV .Q5H PRN PRN Reason: see instructions Famotidine 20 mg/ Sodium (Chloride) 10 mls @ 300 mls/hr IV X1 PRN PRN Reason: Allergic Reaction Insulin Glargine (Lantus (Bkc)) 20 units SC DINNER [facility] Last Admin: 08/26/18 16:20 Dose: 20 u Documented by: Insulin Human Lispro (Humalog Kwikpen (Bkc)) 0 unit SC ACHS & 3AM [facility]; Protocol Last Admin: 08/27/18 02:19 Dose: Not Given Documented by: Labetalol HCl (Trandate) 20 mg IV X1 PRN PRN Reason: BP MANAGEMENT Lisinopril (Zestril) 20 mg PO DAILY [facility] Last Admin: 08/26/18 08:15 Dose: 20 mg Documented by: Lorazepam (Ativan) 1 mg IV Q2H PRN PRN PRN Reason: Severe Anxiety Last Admin: 08/25/18 21:00 Dose: 1 mg Documented by: Lorazepam (Ativan) 2 mg IV X1 PRN PRN Reason: Seizure Methocarbamol (Methocarbamol) 750 mg PO Q6H PRN PRN PRN Reason: Muscle Aches Last Admin: 08/26/18 21:47 Dose: 750 mg Documented by: Methylprednisolone (Solu-Medrol) 125 mg IV X1 PRN PRN Reason: Allergic Reaction Metoprolol Succinate (Toprol Xl (Beta Thiago)) 100 mg PO DAILY [facility] Last Admin: 08/26/18 08:15 Dose: 100 mg Documented by: Multivitamins (Multivitamin) 1 tablet PO DAILYCM [facility] Last Admin: 08/26/18 08:15 Dose: 1 tablet Documented by: Nicotine (Nicoderm Cq (Pbkc)) 21 mg TRANSDERM. DAILY [facility] Last Admin: 08/26/18 08:18 Dose: 21 mg Documented by: Ondansetron HCl (Zofran) 4 mg IV Q8H PRN PRN PRN Reason: NAUSEA/VOMITING Pantoprazole Sodium (Protonix) 40 mg PO DAILY [facility] Last Admin: 08/26/18 08:16 Dose: 40 mg Documented by: Sodium Chloride () 10 - 40 ml IV UD PRN PRN Reason: SALINE FLUSH Last Admin: 08/26/18 02:13 Dose: 20 ml Documented by: Medical Necessity - Tobacco Use Smoking Status: Current every day smoker Tobacco Use: Cigarettes Assessment/Plan All Active Problems (Last Reviewed 06/13/18 @ 08:39 by Марина Ku) Alcohol withdrawal (Acute) Stroke (Acute) SVT (supraventricular tachycardia) (Acute) History of aortic aneurysm repair (Resolved ~2017) History of aortic valve replacement with bioprosthetic valve (Resolved ~2017) Shortness of breath (Acute) Pleuritic chest pain (Acute) 1. Left-sided CVA -There is a stroke alert called yesterday at [facility] and it was determined that his NIH was 9 and he had a CTA of his head and neck which was negative for large vessel occlusion, and he was given TPA -His symptoms at that time were no movement in his right lower extremity and diminished movement in his right upper extremity. These have resolved -Repeat CT brain was negative for bleed, will start him on aspirin today and obtain an echo -He has a pacemaker and a valve and therefore will likely not qualify for an MRI of the brain however he has had symptom resolution -Since he is also completing his [facility] protocol today, if echo is normal, will plan for discharge today. 2. Alcohol withdrawal/depression - CIWA of 19 on admission -Strength with his fifth of vodka yesterday -Continue with [facility] protocol for alcohol withdrawal -Continue with Prozac and venlafaxine 3. HTN/HLD/aortic aneurysm status post repair with aortic valve replacement/sick sinus syndrome status post pacemaker -Currently all is stable -Tinea with lisinopril, metoprolol, and Lipitor 4. GERD -Stable -Continue with PPI 5. DM 2 -Insulin-dependent, will continue with his home Levemir, but will reduce the dose to 20 units as he was hypoglycemic today -Accu-Cheks AC at bedtime DVT: Ambulation Code Visit Inpatient E&M: 96736 Subs Hosp L2
[2018-08-27] MEDS: Insulin Lispro 100 UNIT/ML INSULN.PEN SC (08:35)
[2018-08-27] MEDS: Aspirin 81 MG TAB.CHEW PO (08:43)
[2018-08-27] MEDS: FLUoxetine 20 MG Capsule 40 MG PO (08:43)
[2018-08-27] MEDS: Metoprolol(XL)Succ 100 MG Tablet PO (08:43)
[2018-08-27] MEDS: Lisinopril 20 MG Tablet PO (08:44)
[2018-08-27] MEDS: Pantoprazole Sodium 40 MG Tablet PO (08:44)
[2018-08-27] MEDS: Multivitamins,Therapeutic Tablet 1 TABLET PO (08:44)
[2018-08-27] MEDS: Enoxaparin 40 MG/0.4 ML Syringe SC (10:01)
--- NOTE | 2018-08-27 10:18 | NURSING ---
report called to pcu transferred to pcu with belongings per chair
[2018-08-27 10:53] LABS: Hemoglobin A1c 8.9 % (4.2-6.3)
[2018-08-27 11:56] LABS: Bedside Glucose 80 mg/dL (70-110)
--- NOTE | 2018-08-27 13:22 | DCINST_ITS ---
- Discharge Diagnoses Current Active Problems: Current Active and Chronic Problems (Last Reviewed 06/13/18 @ 08:39 by Марина Ku) Alcohol withdrawal (Acute) Stroke (Acute) You will use the following diet at home:: Cardiac Your food should be the consistency of: Regular Your liquids should be the consistency of: Regular/Thin Discharge Activity: Return to Normal Activity, No Restrictions Call your doctor if you observe: Fever of 101 or Higher, Shortness of breath, Dizziness, Fainting spells, Swelling in the ankles, Chest pain, Increased palpitations (irregular heartbeat) Allergies/Adverse Reactions: Allergies No Known Allergies Allergy (Verified 08/24/18 10:19) Medications to take at Discharge Acetaminophen [Tylenol Tablet] 650 mg PO Q6H PRN PRN #30 tab 12/29/17 atorvastatin 10 mg tablet 10 mg PO QHS 06/10/18 fluoxetine 40 mg capsule 40 mg PO DAILY 06/10/18 metoprolol succinate ER 100 mg tablet,extended release 24 hr 100 mg PO DAILY 06/10/18 omeprazole 40 mg capsule,delayed release 40 mg PO DAILY 06/10/18 Amlodipine Besylate [Norvasc] 5 mg PO DAILY 08/24/18 Glimepiride [Amaryl] 2 mg PO DAILY 08/24/18 Hydrochlorothiazide 12.5 mg PO DAILY 08/24/18 Metformin HCl [Glucophage Xr] 750 mg PO DAILY 08/24/18 Ramipril 10 mg PO DAILY 08/24/18 Aspirin [Aspirin, Baby] 81 mg PO DAILY@0800 #30 tab.chew 08/27/18 Atorvastatin Calcium [Lipitor] 40 mg PO QHS #30 tab 08/27/18 Insulin Detemir [Levemir] 30 units SUBCUT DINNER #0 08/27/18 The following prescriptions were given: Aspirin [Aspirin, Baby] 81 mg PO DAILY@0800 #30 tab.chew Transmission Status: P[facility] to [id number] Atorvastatin Calcium [Lipitor] 40 mg PO QHS #30 tab Transmission Status: [id number] Primary Care Physician: Dk Pathak, VINODC [Primary Care Provider] - Please follow up with your Primary Care Physician in: 3-5 days Test Results: Test results from this visit will be discussed in further detail at your follow- up appointment, if applicable. Please Follow Up With: Josi Garcia MD When: 2-3 weeks
--- NOTE | 2018-08-27 13:26 | PCM.DC.SUM ---
Discharge Date and Diagnosis - Problem List Patient Problems: Active and Suspected Problems (Last Reviewed 06/13/18 @ 08:39 by Марина Ku) Alcohol withdrawal (Acute) Stroke (Acute) Date of Admission: 08/24/18 Date of Discharge: 08/27/18 - Primary Discharge Diagnosis Active and Suspected Problems (Last Reviewed 06/13/18 @ 08:39 by Марина Ku) Alcohol withdrawal (Acute) Stroke (Acute) - Secondary Discharge Diagnosis Chronic Problems (Last Reviewed 06/13/18 @ 08:39 by Марина Ku) Pure hypercholesterolemia (Chronic) Left carotid bruit (Chronic) Cardiac pacemaker in situ (Chronic ~06/2016) Essential hypertension (Chronic) 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 CTA Head/Neck: IMPRESSION: Normal CTA Head and neck with contrast. CT Brain(After tPA): IMPRESSION: No acute intracranial abnormality. Consults: [facility] Coding Compliance Manager Operations: None Procedures: 2-D Echocardiogram - Interpretation Summary Moderate concentric left ventricular hypertrophy. Stage 1 diastolic dysfunction. Bioprosthetic Aortic Valve functioning normally Mild-Moderate (1-2+) eccentric pulmonic valve insufficiency. No thrombus or vegetation noted, however consider ALBERT for further evaluation if clinical suspicion high The estimated ejection fraction is 60 %. Summary of Care Provided: Per HPI: The patient is a 58 year old M with PMH as below who presents with recent desire to undergo detox. He states that he is sick and tired of being sick and tired which is why he came today, also is 91-year-old father does not feel comfortable letting him drive so he drives his son everywhere. He also misses 1 to 2 days of work every month because of it and he is been out for the last 2 days from work. He drinks about 1/5 of vodka every day and this is been going on for several years. He is actually been in [facility] about a year ago which he does not remember. He is also a former heroin addict however he stopped that after his son overdosed on heroin and . His last drink was yesterday morning and today in the ER his CIWA was 19, his vital signs are unremarkable. Hospital Course: 1. Left MCA CVA/HTN/SVT with pacemaker/status post aortic aneurysm repair and aortic valve [id number]-old male presented with alcohol withdrawal and on the second day of his admission developed acute right lower extremity weakness that progressed to right upper and lower extremity weakness. A stroke alert was called and he was taken down the CT scan where we were met with [facility] tele-stroke. After their evaluation in conjunction with her own evaluation that determined an NIH of 9, the decision was made to give the patient TPA. He was taken to the ICU where TPA protocol was initiated. Neurology in the food service cashier were both consulted. He had a CT scan 24 hours after the TPA was infused and there was no sign of an intracranial bleed and therefore he was started on aspirin. By the day of discharge his deficits had completely resolved and PT and OT did not feel that there were any further therapy needs. His echo was also unremarkable. He was started on a higher dose of Lipitor, he had been on 10 mg p.o., but now he is on 40 mg. He will need to follow-up with neurology in 2 to 3 weeks, and will continue with his aspirin and Lipitor. Also of note he had a CTA of his head and neck which was negative for a large vessel occlusion and an MRI cannot be performed because of his pacemaker. There are no changes made to his blood pressure regimen. This plan was discussed with the patient he is in agreement, he will need to follow-up with his PCP in 3 to 5 days. 2. Acute alcohol withdrawal-he initially presented for alcohol withdrawal and was started on the [facility] protocol which she is completed well. [facility] met with him and he will go to [facility] on Wednesday for for intensive outpatient rehab as well as therapy. 3. DM 2-he is on metformin, glimepiride, and insulin 50 units at dinner. When he was started on just the insulin regimen here his blood sugars became low and therefore his insulin was decreased to 20 units nightly and sliding scale insulin was supplemented. His sliding scale insulin has provided between 9 and 12 units daily so on discharge we will increase his insulin to 30 units nightly. Unfortunately he will likely not follow a diabetic diet as his A1c was 8.9, and will therefore likely need to be increased back to his home dose of insulin, do recommend that he follow-up with his PCP and/or bessemer bottom maker if he has one. 4. His other medical diagnoses were evaluated and his home medications were continued where appropriate Patient Problems: Active and Suspected Problems (Last Reviewed 06/13/18 @ 08:39 by Марина Ku) Alcohol withdrawal (Acute) Stroke (Acute) - Physical Exam Vital Signs Temp Pulse Resp BP Pulse Ox 97.4 F L 63 16 147/93 H 99 08/27/18 12:28 08/27/18 12:28 08/27/18 12:28 08/27/18 12:28 08/27/18 10:35 Oxygen Delivery Method Room Air Weight: 173 lb 1.006 oz Body Mass Index (BMI) 23.5 Finger Stick Blood Glucose 140 Intake and Output for Last 24 Hours 08/25/18 08/26/18 08/27/18 23:59 23:59 23:59 Intake Total 3054 / 3535 2041 / 2521 1060 / 1060 Output Total 301 / 501 1350 / 1600 650 / 650 Balance 2753 / 3034 691 / 921 410 / 410 Laboratory Tests Past 24 Hrs 08/27/18 10:00 Hemoglobin A1c 8.9 H POC Glucose 08/27/18 08/27/18 08/27/18 11:48 06:35 02:10 POC Glucose 80 191 H 108 08/26/18 08/26/18 08/26/18 21:04 20:10 16:00 POC Glucose 190 H 73 207 H Discharge Activity: Return to Normal Activity, No Restrictions Call your doctor if you observe: Fever of 101 or Higher, Shortness of breath, Dizziness, Fainting spells, Swelling in the ankles, Chest pain, Increased palpitations (irregular heartbeat) Home Medications: Medications to take at Discharge Acetaminophen [Tylenol Tablet] 650 mg PO Q6H PRN PRN #30 tab 12/29/17 atorvastatin 10 mg tablet 10 mg PO QHS 06/10/18 fluoxetine 40 mg capsule 40 mg PO DAILY 06/10/18 metoprolol succinate ER 100 mg tablet,extended release 24 hr 100 mg PO DAILY 06/10/18 omeprazole 40 mg capsule,delayed release 40 mg PO DAILY 06/10/18 Amlodipine Besylate [Norvasc] 5 mg PO DAILY 08/24/18 Glimepiride [Amaryl] 2 mg PO DAILY 08/24/18 Hydrochlorothiazide 12.5 mg PO DAILY 08/24/18 Metformin HCl [Glucophage Xr] 750 mg PO DAILY 08/24/18 Ramipril 10 mg PO DAILY 08/24/18 Aspirin [Aspirin, Baby] 81 mg PO DAILY@0800 #30 tab.chew 08/27/18 Atorvastatin Calcium [Lipitor] 40 mg PO QHS #30 tab 08/27/18 Insulin Detemir [Levemir] 30 units SUBCUT DINNER #0 08/27/18 Following Prescrptions Were Given to Patient: Aspirin [Aspirin, Baby] 81 mg PO DAILY@0800 #30 tab.chew Transmission Status: [id number] Atorvastatin Calcium [Lipitor] 40 mg PO QHS #30 tab Transmission Status: [id number] Primary Care Physician: Dk Pathak NP-C [Primary Care Provider] - Please follow up with your Primary Care Physician in: 3-5 days Please Follow Up With: Josi Garcia MD When: 2-3 weeks Disposition: Home Minutes spent on discharge:: 35 Patient Condition:: Stable Medical Necessity - Tobacco Use Smoking Status: Current every day smoker Tobacco Use: Cigarettes Meaningful Use Info Meaningful Use Diagnoses (Choose all that apply): Ischemic CVA - CVA Therapy Assessed for PT,OT and/or ST?: Yes - Ischemic Stroke Antithrombotic order at d/c?: Yes Dx of Atrial fib/flutter?: No Statins at discharge?: Yes Primary Dx Acute Ischemic CVA?: Yes IV tPA ordered during stay?: Yes Code Visit Inpatient E&M: 00309 Disch Hosp
== END 2018-08-27 14:14 | disposition home or self-care (01) | DRG 896 ==
LOC: ED 10:48 → PCU 11:56 → MS3 14:46 → PCU 08-25 10:22 → ICU 08-26 13:16 → PCU 08-27 10:59 → ICU 08-29 14:56 → PCU 08-29 14:56
PROVIDERS: Hospitalist; Psychiatry & Neurology Neurology; Admitting Provider Family Medicine; Emergency Provider Emergency Medicine; Family Provider Nurse Practitioner Family; PCP Nurse Practitioner Family; Visit Provider Family Medicine
DX: F10.239 Alcohol dependence with withdrawal, unspecified (principal); I63.9 Cerebral infarction, unspecified; G81.91 Hemiplegia, unspecified affecting right dominant side; I10 Essential (primary) hypertension; F17.210 Nicotine dependence, cigarettes, uncomplicated; E11.649 Type 2 diabetes mellitus with hypoglycemia without coma; Z95.0 Presence of cardiac pacemaker; Z95.3 Presence of xenogenic heart valve; Z79.4 Long term (current) use of insulin; R29.709 NIHSS score 9; F32.9 Major depressive disorder, single episode, unspecified; E78.00 Pure hypercholesterolemia, unspecified; F11.21 Opioid dependence, in remission; K21.9 Gastro-esophageal reflux disease without esophagitis
CPT/HCPCS: 36415; 70450; 70496; 70498; 80048; 80061; 82947; 82962; 83036; 84484; 85025; 92610; 93005; 93306; 97162; 97165; 97802; 99283; J2997; J7030; Q9967; A4216

== ENCOUNTER 2018-08-27 19:51 | Emergency (ER) | payer OTHER, SELFPAY ==
[2018-08-24 14:14] VITALS: BMI 23.5
[2018-08-27 19:53] VITALS: TEMP 37.2; BMI 25.1
[2018-08-27 19:59] VITALS: BP 163/92; PULSE 75; RESP 21; O2SAT 95
[2018-08-27] MEDS: Ziprasidone IM 20 MG/ML VIAL IM (19:59)
[2018-08-27 20:02] VITALS: TEMP 37.2; BMI 25.1
--- NOTE | 2018-08-27 20:10 | CT_ITS ---
STUDY: CT BRAIN WITHOUT CONTRAST REASON FOR EXAM: Male, 58 years old. Altered mental status. Alcohol intoxication. RADIATION DOSAGE (If Supplied By Facility): CTDIvol = ( 44.99 ) mGy, DLP = ( 829.85 ) mGycm TECHNIQUE: Transaxial CT imaging of the brain was performed without administration of intravenous contrast material. Individualized dose optimization techniques were used for this CT. COMPARISON: 08/26/2018 FINDINGS: Normal soft tissue structures. Normal calvarium. Normal size ventricles and extra-axial spaces for the patient's age. Normal white matter tracts of the cerebral hemispheres. Normal basal ganglia and thalami. Normal brainstem. Normal cerebellum. There is no intracranial hemorrhage. There are no findings of an acute ischemic infarction. Normal visualized paranasal sinuses. CT/Brain/Head without Contrast IMPRESSION: Normal unenhanced CT scan of the brain. Electronically Signed: Franklyn Butler MD at 21:18 EDT , Service support ,
--- NOTE | 2018-08-27 20:16 | ED.RN ---
PT PRESENTS TO ED WITH SOFT RESTRAINTS APPLIED BY EMS. TWO POLICE ESCORTED PATIENT TO ED. MD AT BEDSIDE. PT WRITHING ON COT TRYING TO KICK AT STAFF. PT USING AGGRESSIVE LANGUAGE, STATING HE NEEDS ALL OF OUR NAMES SO HE CAN JOSÉ MIGUEL US. PT COMBATIVE WHEN MOVING FROM COT TO BED. PT SEEN TRYING TO EAT WRIST RESTRAINT OFF. DEESCALATION TECHNIQUES TRIED. MULTIPLE STAFF AT BEDSIDE. LEATHER RESTRAINTS APPLIED. PT DENIES SI.
[2018-08-27 20:50] LABS: Absolute Lymphocyte Count 1.21 X10^3/uL (0.83-4.51); Absolute Neutrophil Count 3.4 X10^3/uL (2.0-7.7); Basophil# 0.07 X10^3/uL; Basophil% 1.3 % (0-1); Eosinophil# 0.13 X10^3/uL; Eosinophils% 2.5 % (0-5); Hematocrit 35.4 % (40-54); Hemoglobin 12.1 g/dL (13.0-16.5); Lymphocyte # 1.21 X10^3/ul (4.0); Mean Corp Hgb Conc 34.2 g/dL (32-36); Mean Corpuscular Hgb 31.7 pg (27.0-32.0); Mean Corpuscular Volume 92.7 fL (80-94); Mean Platelet Vol. 10.2 fl (6.2-12.0); Monocyte# 0.43 X10^3/uL; Monocyte% 8.2 % (0-10); NRBC Flagged by Analyzer 0 % (0-5); Neutrophil # 3.42 X10^3/uL (2.7-7.7); Neutrophil % 64.8 % (47-70); Platelet Count 159 K/mm3 (150-450); RBC Distribution Width CV 13.2 % (11.6-14.6); RBC Distribution Width SD 44.4 fl (35.1-43.9); Red Blood Count 3.82 M/mm3 (4.6-6.2); White Blood Count 5.3 K/mm3 (4.4-11.0)
[2018-08-27 20:54] VITALS: BP 98/63; PULSE 70; RESP 20; O2SAT 95
--- NOTE | 2018-08-27 20:55 | ED.RN ---
RESTRAINTS DISCONTINUED AT 2051.
[2018-08-27 21:07] LABS: AST(SGOT) 14 U/L (15-37); Alanine Aminotransfer ALT/SGPT 23 U/L (16-61); Albumin, Serum 3.4 g/dL (3.2-5.0); Alkaline Phosphatase 106 U/L (45-117); Anion Gap 7 (5-15); BUN 11 mg/dL (7-18); BUN/Creat Ratio 8.9 RATIO (10-20); Bilirubin, Direct < 0.05 mg/dL (0.00-0.30); Calcium,Total 8.3 mg/dL (8.5-10.1); Chloride 116 mmol/L (98-107); Creatinine, Serum 1.23 mg/dL (0.70-1.30); EST Glomerular Filtration Rate 65 mL/min (>60); Est Glom Filt Rate - Afr Amer 78 mL/min (>60); Estimated Creatinine Clearance 69.24 ml/min; Globulin 3.3 g/dL (2.2-4.2); Glucose 166 mg/dL (74-106); Potassium 3.6 mmol/L (3.5-5.1); Protein, Total 6.7 g/dL (6.4-8.2); Sodium Level 142 mmol/L (136-145)
[2018-08-27 21:16] VITALS: BP 80/56; PULSE 60; RESP 12; O2SAT 100
--- NOTE | 2018-08-27 21:38 | ED.VISSUMM ---
- ER Visit Summary Date of Service: 08/27/18 Chief Complaint: Intoxication History of Present Illness: The patient is a 58 M who reportedly called the ambulance because he was lying in his yard and unable to get up after drinking 1/5 of vodka. When 's deputies and EMS arrived his phone was in the roadway. Patient states he needed help because he is unable to ambulate due to intoxication. The patient I admitted 3 days ago for alcohol detox. He subsequently developed symptoms of a stroke and was given TPA was eventually discharged earlier today. Since leaving the hospital he drank 1/5 of vodka and now is demonstrating violence towards staff. Patient had to be restrained by EMS on their drive to the hospital. deputies are present with his arrival here. Patient states that he would like to jean everybody involved today. When asked if he wants to jean everybody why that he call for us to help him he shouts expletives at me and tells me to call Director Of Strategy & Mobile Kenyatta because he is a friend of his. Physical Examination: Afebrile vital signs are stable Gen: Well-nourished well-developed Head: Normocephalic atraumatic Eyes: Perrl EOMI ENT: TMs clear no rhinorrhea moist mucous membranes drawn smell of alcohol Neck: Supple no lymphadenopathy no JVD nontender CVS: Regular rate rhythm no murmurs normal S1-S2 Respiratory: No distress clear to auscultation bilaterally chest nontender Abdomen: Soft nontender nondistended normal bowel sounds no masses Back: Nontender Extremity: Nontender no edema Skin: Normal color no rash Neuro: alert orientated ?3 CN II-XII intact normal strength sensation reflexes gait cerebellar Psych: Patient is angry yelling fighting with staff Test Results: CT brain was negative. Basic labs were obtained. Alcohol level 228. Emergency Department Course and Treatment: Patient was placed in leather restraints and given 20 mg of Geodon due to his violent behavior that was not redirectable. A CT the brain was obtained given his level of agitation and his recent TPA. This was negative. Patient has been appropriately sedated and is currently sleeping. His elderly father came to the hospital has been updated and has since gone home. Will be allowed to sober up and be discharged when sober. Impression: 1. Acute alcohol intoxication 2. Violent behavior - towards medical staff This note was generated with Loretta dictation software. It may contain incorrect words, spelling, and punctuation that were not noted in review of the chart prior to signing ED Disposition - Plan for ED Patient: Disposition: Home or Assisted Living Instructions: Alcohol Intoxication Referrals: Dk Pathak, MASK DESIGN ENGINEER-C [Primary Care Provider] - As soon as possible
[2018-08-27 22:06] VITALS: BP 87/60; PULSE 60; RESP 12; O2SAT 100
[2018-08-28 01:12] VITALS: PULSE 60; RESP 18; O2SAT 95
[2018-08-28 03:15] VITALS: BP 98/72; PULSE 60; RESP 17; O2SAT 98
[2018-08-28 04:25] VITALS: PULSE 60; RESP 16; O2SAT 98
[2018-08-28 06:28] VITALS: BP 127/60; PULSE 64; RESP 16; O2SAT 96
--- NOTE | 2018-08-28 06:39 | ED.RN ---
SLIPPER SOCKS AND ORANGE JUICE WERE GIVEN TO PT. PT PICKED UP BY HIS FATHER WHO WAS CALLED BY MYSELF. PT AOX3. AMBULATES WITH A STEADY AND INDEPENDENT GAIT. ALL QUESTIONS WERE ANSWERED, NO FURTHER CONCERNS.
== END 2018-08-28 06:40 | disposition home or self-care (01) ==
PROVIDERS: Emergency Provider Emergency Medicine; Family Provider Nurse Practitioner Family; PCP Nurse Practitioner Family
DX: F10.229 Alcohol dependence with intoxication, unspecified (principal); Y90.9 Presence of alcohol in blood, level not specified; R45.6 Violent behavior; Z78.1 Physical restraint status; E11.9 Type 2 diabetes mellitus without complications; I10 Essential (primary) hypertension; E78.00 Pure hypercholesterolemia, unspecified; I49.5 Sick sinus syndrome; Z79.82 Long term (current) use of aspirin; Z79.84 Long term (current) use of oral hypoglycemic drugs; Z79.4 Long term (current) use of insulin; Z79.899 Other long term (current) drug therapy; Z72.0 Tobacco use
CPT/HCPCS: 70450; 80048; 80076; 80320; 85025; 96372; 99285; G0480; J3486

== ENCOUNTER 2018-09-26 18:58 | Emergency (ER) | payer OTHER, SELFPAY ==
[2018-09-26 19:00] VITALS: BP 130/92; PULSE 78; RESP 16; TEMP 37.1; O2SAT 98; BMI 23.7
--- NOTE | 2018-09-26 19:00 | ED.RN ---
CALLED FOR EKG PER RN REQUEST, PULLED OLD EKGS FOR
--- NOTE | 2018-09-26 19:22 | EKG12_ITS ---
Test Reason : CP Blood Pressure : / mmHG Vent. Rate : 060 BPM Atrial Rate : 060 BPM P-R Int : 198 ms QRS Dur : 134 ms QT Int : 444 ms P-R-T Axes : 051 -01 128 degrees QTc Int : 444 ms Atrial-paced rhythm Right bundle branch block T wave abnormality, consider lateral ischemia vs IVCD Effect Abnormal ECG Confirmed by MIMI FRANCISCO, TRISH ([id number]), editorial clerk MAILE BALDWIN ([id number]) on 09/29/2018 1:03:34 PM Referred By: YARA Confirmed By:TRISH LE MD
--- NOTE | 2018-09-26 19:25 | RAD_ITS ---
STUDY: X-RAY CHEST REASON FOR EXAM: Male, 58 years old. Left-sided chest pain. TECHNIQUE: Single AP portable view of the chest. COMPARISON: 06/07/2018, 03/16/2017. FINDINGS: Normal lung volumes. Stable density across the mid left lung, most likely a scar since it has not changed however chest CT is recommended. No infiltrates. No effusions. Sternal cerclage wires are present from a prior sternotomy. Pacemaker is seen with leads terminating in the right atrium and right ventricle. Normal heart size. Prosthetic aortic valve. Normal mediastinum and akbar. Normal visualized pulmonary arteries. Normal visualized aortic arch and descending thoracic aorta. Normal visualized thoracic spine. Normal visualized ribs, clavicles, and shoulders. There is no demonstrated abnormality of the visualized soft tissue structures of the upper abdomen. RAD/Chest 1 View (Portable) IMPRESSION: 3.6 cm oblong pulmonary density in the mid left lung, probably a scar but CT scan is recommended. Electronically Signed: Franklyn Bulter MD at 19:49 EDT , Service support ,
[2018-09-26 19:45] LABS: Absolute Lymphocyte Count 1.97 X10^3/uL (0.83-4.51); Absolute Neutrophil Count 3.9 X10^3/uL (2.0-7.7); Basophil% 1.5 % (0-1); Eosinophil# 0.13 X10^3/uL; Eosinophils% 1.9 % (0-5); Hematocrit 39.1 % (40-54); Hemoglobin 13.6 g/dL (13.0-16.5); Lymphocyte # 1.97 X10^3/ul (4.0); Lymphocyte % 29.2 % (19-41); Mean Corp Hgb Conc 34.8 g/dL (32-36); Mean Corpuscular Hgb 31.4 pg (27.0-32.0); Mean Corpuscular Volume 90.3 fL (80-94); Mean Platelet Vol. 10.4 fl (6.2-12.0); Monocyte# 0.59 X10^3/uL; Monocyte% 8.7 % (0-10); NRBC Flagged by Analyzer 0 % (0-5); Neutrophil # 3.94 X10^3/uL (2.7-7.7); Neutrophil % 58.4 % (47-70); Platelet Count 202 K/mm3 (150-450); RBC Distribution Width CV 13.1 % (11.6-14.6); RBC Distribution Width SD 43.3 fl (35.1-43.9); Red Blood Count 4.33 M/mm3 (4.6-6.2); White Blood Count 6.8 K/mm3 (4.4-11.0)
[2018-09-26] MEDS: Aspirin 81 MG TAB.CHEW 324 MG PO (19:46)
[2018-09-26] MEDS: Acetaminophen 500 MG Tablet 1000 MG PO (19:47)
--- NOTE | 2018-09-26 19:53 | ED.RN ---
ZACHARY AND PT'S DAD AT THE BEDSIDE.PT MADE AWARE THAT THREATENING TO RIP HIS PACER OUT WHILE UNDER THE INFLUENCE OF ALCHOL PER MD MAKES HIM A SUICIDE PT. PT NOT HAPPY.
[2018-09-26 20:00] LABS: Anion Gap 6 (5-15); BUN 9 mg/dL (7-18); BUN/Creat Ratio 8.1 RATIO (10-20); Calcium,Total 9.1 mg/dL (8.5-10.1); Chloride 103 mmol/L (98-107); Creatinine, Serum 1.11 mg/dL (0.70-1.30); EST Glomerular Filtration Rate 73 mL/min (>60); Est Glom Filt Rate - Afr Amer 88 mL/min (>60); Estimated Creatinine Clearance 79.14 ml/min; Glucose 164 mg/dL (74-106); Potassium 2.9 mmol/L (3.5-5.1); Sodium Level 142 mmol/L (136-145)
--- NOTE | 2018-09-26 20:15 | CM.ED ---
Social Work Patient pink slipped by Dr. Miller due to patient wanting to remove pacemaker. Dr. Miller stating that patient is intoxicated at this time and does not need to be seen by social work or crisis. Dr. Miller to notify social work or crisis if patient is determined to need an evaluation after ETOH levels decrease. Lazara Gu WAREHOUSE DELIVERY DRIVER, CONFIGURATOR
--- NOTE | 2018-09-26 20:26 | ED.VIS.GEN ---
History of Present Illness Chief Complaint: Chest Pain Informant: Patient, Family Narrative: Patient presents with chest wall pain. He tells me he had a pacemaker in, he is pacemaker dependent but he wants his pacemaker out. Apparently try to call his doctor to get his pacemaker removed and next thing he knew the ambulance was at his house. He is now here with his father. He admits to drinking a lot tonight. He denies fever chills cough congestion. He tells me he has had the pacemaker on for quite some time, however he wants me to remove it. Past Medical History - Allergies and Home Meds Allergies/Adverse Reactions: Allergies No Known Allergies Allergy (Verified 09/26/18 19:04) Primary Care Physician: Dk Pathak, SENIOR DESIGNER/ART DIRECTOR-C [Primary Care Provider] - Past Medical History: - - Reviewed, extensive history see chart Surgical History: - - Aortic aneurysm repair and aortic valve replacement (bovine) with total 3 separate surgies, most recent 04/2016 [facility], R inguinal hernia repair. Smoking Status: Current every day smoker - Family History Maternal Family History: Family History (Last Reviewed 06/13/18 @ 08:39 by Марина Ku) Father CAD (coronary artery disease) Mother Dementia Family History: Reports: Dementia Paternal Family History: Family History (Last Reviewed 06/13/18 @ 08:39 by Марина Ku) Father CAD (coronary artery disease) Mother Dementia Family History: Reports: Heart Disease Review of Systems ROS: Unable to Obtain - Patient is tell me about the chest pain he denies shortness of breath, he denies a few other complaints like abdominal pain. However he will not be forthcoming with other complaints. He tells me he just wants his pacemaker out Physical Exam Vital Signs/Narrative: Vital Signs Temp Pulse Resp BP Pulse Ox 09/26/18 19:00 98.8 F 78 16 130/92 H 98 Inital Vital Signs reviewed: Yes General: Well nourished, No Acute Distress Head: Normocephalic, Atraumatic Eyes: Perrl ENT: Moist mucous membranes, - - Smell of fermentation on breath Cardiovascular: Regular rate, Regular rhythm Respiratory: No distress, - - The left sided chest shows a scar, I can palpate the pacemaker. There is no erythema or Calor Abdomen: Soft, Nontender, Nondistended Back: Nontender, Normal Inspection Extremities: Nontender, No edema Skin: Normal color, No rash Neurological: - - He is lucid mostly coherent but slightly slurring his words. Diagnostic/Tx/Re-eval - Rhythm Strip Rhythm Strip: Paced Rate: 60 Ectopy: None - EKG Initial EKG Interpretation: - - Atrially paced with ventricular response, intraventricular conduction delay. Rate 60 Interpreted by emergency doctor - Medical Decision Making Patient was observed in the emergency department. His work-up was negative. He is now more lucid and coherent he does not want to take out his pacemaker, he admits he was drunk. I discussed with him and his dad who is at the bedside. His father will take him home. He will be observed. Anything happens they will return. ED Disposition - Plan for ED Patient: Disposition: Home or Assisted Living Diagnosis: Chest wall pain, Alcohol intoxication Instructions: CHEST PAIN, Uncertain Cause Referrals: Dk Pathak, SENIOR DESIGNER/ART DIRECTOR-C [Primary Care Provider] - 3-5 Days
[2018-09-26 20:52] VITALS: PULSE 63; RESP 20; O2SAT 93
[2018-09-26 21:38] VITALS: BP 128/60; PULSE 60; RESP 18; O2SAT 97
== END 2018-09-26 21:38 | disposition home or self-care (01) ==
PROVIDERS: Emergency Provider Emergency Medicine; Family Provider Nurse Practitioner Family; PCP Nurse Practitioner Family
DX: R07.89 Other chest pain (principal); F10.129 Alcohol abuse with intoxication, unspecified; Z95.0 Presence of cardiac pacemaker; Z95.3 Presence of xenogenic heart valve; F17.200 Nicotine dependence, unspecified, uncomplicated
CPT/HCPCS: 71045; 80048; 80320; 84484; 85025; 93005; 99285; A4216; G0480

== ENCOUNTER 2018-11-27 02:40 | Emergency (ER) | payer OTHER, SELFPAY ==
[2018-11-27] VITALS (19 sets, daily range): BP systolic 137–174; BP diastolic 73–113; PULSE 61–105; RESP 15–20; TEMP 37.2; O2SAT 96–100; BMI 24.7
--- NOTE | 2018-11-27 02:52 | ED.RN ---
PT STATED TO THIS NURSE AND DR. OSORIO THAT I DON'T WANT TO BE ALIVE MY FAMILY HATES ME. I'M A PROPHET FROM GOD, I KNOW WHERE I'M GOING AND IT'S BEAUTIFUL. I DON'T WANT TO BE HERE ANYMORE SO YOU SHOULD JUST LET ME GO AND DO IT.
--- NOTE | 2018-11-27 02:59 | EKG12_ITS ---
Test Reason : MENTAL HEALTH Blood Pressure : / mmHG Vent. Rate : 101 BPM Atrial Rate : 101 BPM P-R Int : 150 ms QRS Dur : 132 ms QT Int : 364 ms P-R-T Axes : 052 -39 078 degrees QTc Int : 471 ms Sinus tachycardia Possible Left atrial enlargement Left axis deviation Right bundle branch block Abnormal ECG Confirmed by ZHAO FRANCISCO, KETTY ([id number]), medical editor BENJAMÍN JAVIER ([id number]) on 12/02/2018 10:20:26 AM Referred By: JO Confirmed By:KETTY CHURCHILL MD
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
[2018-11-27 03:15] LABS: Bedside Glucose 495 mg/dL (70-110)
[2018-11-27 03:15] LABS: Vista UDS pH Range 5
[2018-11-27 03:34] LABS: Amphetamine Urine VISTA NEGATIVE (<1000 ng/mL); Barbiturate Urine VISTA NEGATIVE (< 200 ng/mL); Benzodiazepine Urine VISTA NEGATIVE (< 200 ng/mL); Cocaine Urine VISTA NEGATIVE (< 300 ng/mL); Ecstacy Urine VISTA NEGATIVE (< 500 ng/mL); Methadone Urine VISTA NEGATIVE (< 300 ng/mL); PCP Urine VISTA NEGATIVE (< 25 ng/mL); THC Urine VISTA NEGATIVE (< 50 ng/mL)
[2018-11-27 03:36] LABS: Anion Gap 16 (5-15); BUN 19 mg/dL (7-18); BUN/Creat Ratio 12.3 RATIO (10-20); Chloride 99 mmol/L (98-107); Creatinine, Serum 1.54 mg/dL (0.70-1.30); EST Glomerular Filtration Rate 50 mL/min (>60); Est Glom Filt Rate - Afr Amer 60 mL/min (>60); Estimated Creatinine Clearance 57.05 ml/min; Glucose 506 mg/dL (74-106); Sodium Level 136 mmol/L (136-145)
[2018-11-27 03:53] LABS: Absolute Lymphocyte Count 1.08 X10^3/uL (0.83-4.51); Absolute Neutrophil Count 6.6 X10^3/uL (2.0-7.7); Basophil# 0.09 X10^3/uL; Eosinophil# 0.08 X10^3/uL; Eosinophils% 0.9 % (0-5); Hematocrit 42.3 % (40-54); Hemoglobin 14.2 g/dL (13.0-16.5); Lymphocyte # 1.08 X10^3/ul (4.0); Lymphocyte % 12.5 % (19-41); Mean Corp Hgb Conc 33.6 g/dL (32-36); Mean Corpuscular Hgb 31.1 pg (27.0-32.0); Mean Corpuscular Volume 92.6 fL (80-94); Mean Platelet Vol. 10.4 fl (6.2-12.0); Monocyte# 0.76 X10^3/uL; Monocyte% 8.8 % (0-10); NRBC Flagged by Analyzer 0 % (0-5); Neutrophil % 76.3 % (47-70); Platelet Count 225 K/mm3 (150-450); RBC Distribution Width CV 13.1 % (11.6-14.6); RBC Distribution Width SD 44.3 fl (35.1-43.9); Red Blood Count 4.57 M/mm3 (4.6-6.2); White Blood Count 8.7 K/mm3 (4.4-11.0)
[2018-11-27] MEDS: Ziprasidone HCl 20 MG Capsule PO (03:53)
[2018-11-27] MEDS: 0.9% Normal Saline 1,000 ML 999 ML IV (03:54)
[2018-11-27 04:00] LABS: International Normalized Ratio 1.2; Prothrombin Time (Protime)PT. 14.7 SECONDS (11.7-14.9)
--- NOTE | 2018-11-27 04:41 | ED.RN ---
ZACHARY CALLED FOR HELP PT TRIED TO PULL HIS IV OUT, PT TOOK THE IV BAG DOWN AND WAS TRYING TO GET OUT OF BED. PT STATED I WANT TO GO HOME AND SMOKE A CIGARETTE AND FINISH WHAT I STARTED. IT WAS EXPLAINED THAT THE PT IS PINK SLIPPED AND CANNOT LEAVE. PT WAS STILL COMBATIVE AND TRYING TO BITE HIS IV LINE OFF. ORDER WAS PLACED FOR LOCKED RESTRAINTS. POST RESTRAINT APPLICATION ALL FOUR EXTREMITIES HAVE POSITIVE PULSES AND CAP REFILL LESS THAN 3 SEC.
--- NOTE | 2018-11-27 04:42 | ED.RN ---
PT WAS BANGING HEAD ON SIDE RAILS WAS ASKED POLITELY TO STOP; PT CONTINUED TO BANG HEAD ON SIDE RAILS STATING HE IS ANDREW LUGO AND NEEDS A CIGARETTE. SEIZURE PADS WERE APPLIED TO THE BED. PT WAS ASKED TO PULL HIS LEFT FOOT BACK THROUGH THE SIDE RAILS AND PLACE IT BACK IN BED AND PT REFUSED. PT STATES HE HAS STRONG LEGS.
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
[2018-11-27 07:10] LABS: Bedside Glucose 287 mg/dL (70-110)
--- NOTE | 2018-11-27 07:15 | ED.RN ---
CALLED CRISIS TO LET THEM KNOW PATIENT IS MEDICALLY CLEARED. THEY WILL BE CALLING BACK.
--- NOTE | 2018-11-27 07:18 | ED.RN ---
0715 PT COOPERATIVE. RT WRIST AND LT ANKLE REMOVED FROM RESTRAINTS. WATER PROVIDED AND PT USED URINAL. SITTER REMAINS AT BS. WILL CONTINUE TO MONITOR CLOSELY.
[2018-11-27] MEDS: Acetaminophen 500 MG Tablet 1000 MG PO (08:00)
[2018-11-27] MEDS: Insulin Human 75/25 Kwickpen 4 UNIT SC (08:01)
[2018-11-27] MEDS: Ramipril 10 MG Capsule PO (12:16)
[2018-11-27] MEDS: hydroCHLOROthiazide 12.5mg 12.5 MG PO (12:16)
[2018-11-27] MEDS: FLUoxetine 20 MG Capsule 40 MG PO (12:16)
[2018-11-27] MEDS: Metoprolol(XL)Succ 100 MG Tablet PO (12:17)
[2018-11-27] MEDS: metFORMIN (XR) 500 MG Tablet PO (12:17)
[2018-11-27] MEDS: Atorvastatin Calcium 40 MG Tablet PO (23:45)
[2018-11-27 23:46] LABS: Bedside Glucose 206 mg/dL (70-110)
[2018-11-28] VITALS (8 sets, daily range): BP systolic 153; BP diastolic 73; PULSE 61; RESP 16–18; O2SAT 98–99
== END 2018-11-28 08:26 ==
PROVIDERS: Emergency Medicine; Emergency Provider Emergency Medicine; Family Provider Nurse Practitioner Family; PCP Nurse Practitioner Family
DX: F32.9 Major depressive disorder, single episode, unspecified (principal); R45.851 Suicidal ideations; E11.65 Type 2 diabetes mellitus with hyperglycemia; F10.129 Alcohol abuse with intoxication, unspecified; Y90.9 Presence of alcohol in blood, level not specified; R44.0 Auditory hallucinations; M79.89 Other specified soft tissue disorders; I45.10 Unspecified right bundle-branch block; Z91.14 Patient's other noncompliance with medication regimen; I25.10 Atherosclerotic heart disease of native coronary artery without angina pectoris; I10 Essential (primary) hypertension; Z95.3 Presence of xenogenic heart valve; Z79.4 Long term (current) use of insulin; Z79.84 Long term (current) use of oral hypoglycemic drugs; Z79.899 Other long term (current) drug therapy; F17.200 Nicotine dependence, unspecified, uncomplicated
CPT/HCPCS: 36415; 80048; 80307; 80320; 82962; 85025; 85610; 93005; 96360; 96361; 96372; 99285; J7030; A4216; G0480

== ENCOUNTER 2019-01-21 20:48 | Emergency (ER) | payer OTHER, SELFPAY ==
[2018-11-27 02:41] VITALS: BMI 24.7
[2019-01-21 20:50] VITALS: BP 137/78; PULSE 82; RESP 16; TEMP 36.6; O2SAT 98; BMI 24.4
[2019-01-21 21:43] VITALS: BP 119/79; PULSE 68; RESP 14
[2019-01-21 22:20] LABS: International Normalized Ratio 1.1; Prothrombin Time (Protime)PT. 14.4 SECONDS (11.7-14.9)
[2019-01-21 22:29] LABS: Absolute Lymphocyte Count 1.76 X10^3/uL (0.83-4.51); Absolute Neutrophil Count 4.7 X10^3/uL (2.0-7.7); Basophil# 0.06 X10^3/uL; Basophil% 0.8 % (0-1); Eosinophil# 0.09 X10^3/uL; Eosinophils% 1.3 % (0-5); Hemoglobin 13.4 g/dL (13.0-16.5); Lymphocyte # 1.76 X10^3/ul (4.0); Lymphocyte % 24.8 % (19-41); Mean Corp Hgb Conc 34.4 g/dL (32-36); Mean Corpuscular Hgb 30.9 pg (27.0-32.0); Mean Corpuscular Volume 89.9 fL (80-94); Mean Platelet Vol. 9.4 fl (6.2-12.0); Monocyte# 0.47 X10^3/uL; Monocyte% 6.6 % (0-10); NRBC Flagged by Analyzer 0 % (0-5); Neutrophil # 4.69 X10^3/uL (2.7-7.7); Neutrophil % 66.1 % (47-70); Platelet Count 244 K/mm3 (150-450); RBC Distribution Width CV 13.3 % (11.6-14.6); RBC Distribution Width SD 43.9 fl (35.1-43.9); Red Blood Count 4.34 M/mm3 (4.6-6.2); White Blood Count 7.1 K/mm3 (4.4-11.0)
[2019-01-21 22:32] LABS: ALB/GLOB Ratio 1.1 RATIO (0.9-2.4); AST(SGOT) 22 U/L (15-37); Alanine Aminotransfer ALT/SGPT 25 U/L (16-61); Albumin, Serum 3.8 g/dL (3.2-5.0); Alkaline Phosphatase 109 U/L (45-117); Anion Gap 13 (5-15); BUN 26 mg/dL (7-18); Calcium,Total 8.3 mg/dL (8.5-10.1); Chloride 104 mmol/L (98-107); EST Glomerular Filtration Rate 61 mL/min (>60); Est Glom Filt Rate - Afr Amer 73 mL/min (>60); Estimated Creatinine Clearance 67.58 ml/min; Globulin 3.5 g/dL (2.2-4.2); Glucose 182 mg/dL (74-106); Potassium 4.3 mmol/L (3.5-5.1); Protein, Total 7.3 g/dL (6.4-8.2); Sodium Level 142 mmol/L (136-145)
[2019-01-21 22:43] VITALS: BP 102/60; PULSE 74; RESP 18
[2019-01-21] MEDS: Acetaminophen 325 MG Tablet 650 MG PO (22:53)
--- NOTE | 2019-01-21 23:02 | ED.VIS.GEN ---
History of Present Illness Chief Complaint: Substance Abuse Detail of Chief Complaint: Binge alcohol consumption Informant: Patient Onset: - - Since had problem with drinking for years. He was recently discharged from detox program 6 weeks ago. He states he began drinking on the way home. He is [facility] a [facility]. He does meet with a counselor every Wednesday. He presently has no symptoms of withdrawal. Timing: Continuous Quality: Alcohol abuse Location: Residents Current Severity: Moderate Maximum Severity: Severe Worsened by: Drinks more heavily on weekends compared to weekdays. 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 Patient denies fever or chills. He denies ocular, visual auditory symptoms. He denies palpitations rapid heartbeat. He denies diaphoresis or sweating. He denies nausea, vomiting diarrhea or abdominal pain. He denies any neurologic symptoms. There is no history of fall or trauma. He denies maroon or bloody stool. He states he did have black stool today. He took Pepto-Bismol yesterday. He denies orthostatic symptoms. He does admit to smoking daily. Patient states he was at a detox program. He was discharged from the program 6 weeks ago. He states on the way home he began to drink. [facility]. He meets with a counselor every Wednesday. Prior similar symptoms: Yes Recent Illness/Hospitalization: Yes - Past Medical History (1) Alcohol withdrawal Status: Acute (2) SVT (supraventricular tachycardia) Status: Acute (3) Stroke Status: Acute (4) Cardiac pacemaker in situ Status: Chronic (5) Diabetes mellitus, type II Status: Chronic Past Medical History - Allergies and Home Meds Allergies/Adverse Reactions: Allergies No Known Allergies Allergy (Verified 01/21/19 20:51) Primary Care Physician: Dk Pathak NP-C [Primary Care Provider] - Surgical History: - - Aortic aneurysm repair and aortic valve replacement (bovine) with total 3 separate surgies, most recent 04/2016 [facility], R inguinal hernia repair. 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 He does have history of aortic valve replacement and aortic aneurysm. He has had 2 additional surgeries. - Family History Maternal Family History: Family History (Last Reviewed 06/13/18 @ 08:39 by Марина Ku) Father CAD (coronary artery disease) Mother Dementia Family History: Reports: Dementia Paternal Family History: Family History (Last Reviewed 06/13/18 @ 08:39 by Марина Ku) Father CAD (coronary artery disease) Mother Dementia Family History: Reports: Heart Disease Review of Systems General: Denies: Chills, Fever, Sweats Eyes: Denies: Visual changes - bilaterally, Blurred Vision - bilaterally, Diplopia ENT: Denies: Bilateral ear pain, Rhinorrhea, Sore throat Cardiovascular: Denies: Chest pain, Palpitations Respiratory: Denies: Dyspnea, Cough, Dyspnea on exertion Gastrointestinal: Denies: Abdominal pain, Nausea, Vomiting, Diarrhea, Melena, Hematochezia Genitourinary: Denies: Dysuria, Hematuria, Frequency Musculoskeletal: Denies: Myalgias, Arthralgias, Neck pain, Back pain, Swelling, Extremity Pain Skin: Denies: Rash, Wounds Neurological: Denies: Headache, Weakness, Numbness Psych: Denies: Depression, Anxiety Hematologic: Denies: Easy bruising, Easy bleeding Physical Exam Vital Signs/Narrative: Vital Signs Temp Pulse Resp BP Pulse Ox 01/21/19 22:43 74 18 102/60 01/21/19 21:43 68 14 119/79 01/21/19 20:50 97.9 F 82 16 137/78 H 98 Inital Vital Signs reviewed: Yes General: Well nourished, Well developed, No Acute Distress Head: Normocephalic, Atraumatic Eyes: Perrl, EOMI. Negative for: Pale conjunctiva, Scleral icterus ENT: Moist mucous membranes, No rhinorrhea, TM's clear Neck: Supple, Nontender, No lymphadenopathy, No JVD Cardiovascular: Regular rate, Regular rhythm, No murmurs, Normal S1, Normal S2 Respiratory: No distress, CTA bilaterally, Chest nontender, - - Median sternotomy scar noted. Palpable pacemaker left subclavian. Abdomen: Soft, Nontender, Nondistended, Normal bowel sounds, No masses Back: Nontender, Normal Inspection. Negative for: CVA tenderness Extremities: Nontender, No edema Skin: Normal color, No rash Neurological: Alert, Oriented x3, Cranial nerves II-XII grossly intact, Normal Strength, Normal Sensation, Normal DTR, Normal Gait, - - Patient does not have tremors or asterixis. Reflexes were not brisk. There is no clonus. There is no Babinski sign. Psychological: Normal affect, Normal Mood Diagnostic/Tx/Re-eval Laboratory Results 01/21/19 01/21/19 01/21/19 21:50 21:50 21:50 WBC Cancelled Corrected WBC Cancelled RBC Cancelled Hgb Cancelled Hct Cancelled MCV Cancelled MCH Cancelled MCHC Cancelled RDW Std Deviation Cancelled RDW Coeff of [place] Cancelled Plt Count Cancelled MPV Cancelled Immature Gran % (Auto) Cancelled Neut % (Auto) Cancelled Lymph % (Auto) Cancelled [place] % (Auto) Cancelled Eos % (Auto) Cancelled Baso % (Auto) Cancelled Absolute Neuts (auto) Cancelled Absolute Lymphs (auto) Cancelled Total Counted Cancelled Neutrophils % (Manual) Cancelled Band Neutrophils % Cancelled Lymphocytes % (Manual) Cancelled Monocytes % (Manual) Cancelled Eosinophils % (Manual) Cancelled Basophils % (Manual) Cancelled Metamyelocytes % Cancelled Myelocytes % Cancelled Promyelocytes % Cancelled Blast Cells % Cancelled Plasma Cell % (Manual) Cancelled Other Cells % Cancelled Nucleated RBC % Cancelled Nucleated RBCs/100 WBC Cancelled Differential Comment Cancelled Diff Path Review Cancelled Hypersegmented Neuts Cancelled Atypical Lymphocytes Cancelled Reactive Lymphocytes Cancelled Smudge Cells Cancelled Toxic Granulation Cancelled Toxic Vacuolation Cancelled Dohle Bodies Cancelled [place] Rods Cancelled Platelet Estimate Cancelled Plt Morphology Comment Cancelled RBC Morphology Cancelled Polychromasia Cancelled Hypochromasia Cancelled Poikilocytosis Cancelled Basophilic Stippling Cancelled Anisocytosis Cancelled Microcytosis Cancelled Macrocytosis Cancelled Spherocytes Cancelled Sickle Cells Cancelled Target Cells Cancelled Tear Drop Cells Cancelled Ovalocytes Cancelled Stomatocytes Cancelled [place] Bodies Cancelled Kristofer Cells Cancelled Bite Cells Cancelled Crenated Cell Cancelled Acanthocytes (Spur) Cancelled Rouleaux Cancelled Schistocytes Cancelled PT 14.4 INR 1.1 Sodium 142 Potassium 4.3 Chloride 104 Carbon Dioxide 25.0 Anion Gap 13 BUN 26 H Creatinine 1.30 Estim Creat Clear Calc 67.58 Est GFR (MDRD) Af Amer 73 Est GFR (MDRD) Non-Af 61 BUN/Creatinine Ratio 20.0 Glucose 182 H Calcium 8.3 L Total Bilirubin 0.40 AST 22 ALT 25 Alkaline Phosphatase 109 Total Protein 7.3 Albumin 3.8 Globulin 3.5 Albumin/Globulin Ratio 1.1 01/21/19 22:20 WBC 7.1 Corrected WBC RBC 4.34 L Hgb 13.4 Hct 39.0 L MCV 89.9 MCH 30.9 MCHC 34.4 RDW Std Deviation 43.9 RDW Coeff of [place] 13.3 Plt Count 244 MPV 9.4 Immature Gran % (Auto) 0.400 Neut % (Auto) 66.1 Lymph % (Auto) 24.8 [place] % (Auto) 6.6 Eos % (Auto) 1.3 Baso % (Auto) 0.8 Absolute Neuts (auto) 4.7 Absolute Lymphs (auto) 1.76 Total Counted Neutrophils % (Manual) Band Neutrophils % Lymphocytes % (Manual) Monocytes % (Manual) Eosinophils % (Manual) Basophils % (Manual) Metamyelocytes % Myelocytes % Promyelocytes % Blast Cells % Plasma Cell % (Manual) Other Cells % Nucleated RBC % 0 Nucleated RBCs/100 WBC Differential Comment Diff Path Review Hypersegmented Neuts Atypical Lymphocytes Reactive Lymphocytes Smudge Cells Toxic Granulation Toxic Vacuolation Dohle Bodies [place] Rods Platelet Estimate Plt Morphology Comment RBC Morphology Polychromasia Hypochromasia Poikilocytosis Basophilic Stippling Anisocytosis Microcytosis Macrocytosis Spherocytes Sickle Cells Target Cells Tear Drop Cells Ovalocytes Stomatocytes [place] Bodies [place] Cells Bite Cells Crenated Cell Acanthocytes (Spur) Rouleaux Schistocytes PT INR Sodium Potassium Chloride Carbon Dioxide Anion Gap BUN Creatinine Estim Creat Clear Calc Est GFR (MDRD) Af Amer Est GFR (MDRD) Non-Af BUN/Creatinine Ratio Glucose Calcium Total Bilirubin AST ALT Alkaline Phosphatase Total Protein Albumin Globulin Albumin/Globulin Ratio BC is unremarkable. Basic metabolic panel is unremarkable. Renal function is normal. INR is normal. - Medical Decision Making Will obtain CBC to assess for anemia. Basic metabolic panel was obtained to assess anion gap and renal function as well as electrolytes and specifically sodium and potassium. PT/INR was obtained to assess liver function and rule out liver failure from alcoholism. Patient did receive Tylenol for his headache. Since patient is affiliated with [facility] meets with a counselor weekly has no symptoms of withdrawal he will be discharged home to follow-up with his counselor at [facility]. ED Disposition - Plan for ED Patient: Disposition: Home or Assisted Living Diagnosis: Alcohol abuse, Tobacco abuse Instructions: Alcohol Abuse Referrals: Dk Pathak NP-C [Primary Care Provider] - As Needed Additional Instructions: You presently have no findings or symptoms suggest alcohol withdrawal. Your laboratory evaluation is negative. Recommend you contact your counselor through [facility].
[2019-01-21 23:14] VITALS: BP 109/71; PULSE 75; RESP 16
== END 2019-01-21 23:20 | disposition home or self-care (01) ==
PROVIDERS: Emergency Provider Emergency Medicine; Family Provider Nurse Practitioner Family; PCP Nurse Practitioner Family
DX: F10.10 Alcohol abuse, uncomplicated (principal); E11.9 Type 2 diabetes mellitus without complications; Z86.73 Personal history of transient ischemic attack (TIA), and cerebral infarction without residual deficits; Z95.0 Presence of cardiac pacemaker; Z95.3 Presence of xenogenic heart valve; F17.210 Nicotine dependence, cigarettes, uncomplicated
CPT/HCPCS: 80053; 85025; 85610; 99283; A4216

== ENCOUNTER 2019-02-03 19:53 | Emergency (ER) | payer OTHER, SELFPAY ==
[2019-02-03 19:55] VITALS: BP 210/109; PULSE 60; RESP 20; TEMP 36.2; O2SAT 98; BMI 27.5
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
--- NOTE | 2019-02-03 20:09 | EKG12_ITS ---
Test Reason : Blood Pressure : / mmHG Vent. Rate : 060 BPM Atrial Rate : 060 BPM P-R Int : 192 ms QRS Dur : 138 ms QT Int : 460 ms P-R-T Axes : 058 -10 090 degrees QTc Int : 460 ms Atrial-paced rhythm Right bundle branch block Abnormal ECG Confirmed by ZHAO FRANCISCO, KETTY ([id number]), assignment desk editor MAILE BALDWIN ([id number]) on 02/07/2019 9:56:52 AM Referred By: DIMAS Confirmed By:KETTY CHURCHILL MD
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
[2019-02-03 20:14] VITALS: BP 233/111; PULSE 60; RESP 16; O2SAT 98
[2019-02-03 20:28] LABS: Basophil# 0.11 X10^3/uL; Basophil% 1.8 % (0-1); Eosinophil# 0.12 X10^3/uL; Eosinophils% 1.9 % (0-5); Hematocrit 40.6 % (40-54); Hemoglobin 13.5 g/dL (13.0-16.5); Lymphocyte % 23.9 % (19-41); Mean Corp Hgb Conc 33.3 g/dL (32-36); Mean Corpuscular Volume 93.1 fL (80-94); Mean Platelet Vol. 10.1 fl (6.2-12.0); Monocyte# 0.55 X10^3/uL; Monocyte% 8.8 % (0-10); NRBC Flagged by Analyzer 0 % (0-5); Neutrophil # 3.97 X10^3/uL (2.7-7.7); Neutrophil % 63.3 % (47-70); Platelet Count 237 K/mm3 (150-450); RBC Distribution Width CV 13.2 % (11.6-14.6); RBC Distribution Width SD 45.1 fl (35.1-43.9); Red Blood Count 4.36 M/mm3 (4.6-6.2); White Blood Count 6.3 K/mm3 (4.4-11.0)
[2019-02-03 20:33] LABS: International Normalized Ratio 1.1; Prothrombin Time (Protime)PT. 14.1 SECONDS (11.7-14.9)
[2019-02-03 21:16] LABS: ALB/GLOB Ratio 1.1 RATIO (0.9-2.4); AST(SGOT) 25 U/L (15-37); Alanine Aminotransfer ALT/SGPT 36 U/L (16-61); Albumin, Serum 4.4 g/dL (3.2-5.0); Alkaline Phosphatase 124 U/L (45-117); Anion Gap 9 (5-15); BUN 10 mg/dL (7-18); BUN/Creat Ratio 8.1 RATIO (10-20); Calcium,Total 9.2 mg/dL (8.5-10.1); Chloride 101 mmol/L (98-107); Creatinine, Serum 1.23 mg/dL (0.70-1.30); EST Glomerular Filtration Rate 65 mL/min (>60); Est Glom Filt Rate - Afr Amer 78 mL/min (>60); Estimated Creatinine Clearance 69.24 ml/min; Glucose 313 mg/dL (74-106); Lipase 19 U/L (73-393); Potassium 3.6 mmol/L (3.5-5.1); Protein, Total 8.4 g/dL (6.4-8.2); Sodium Level 140 mmol/L (136-145)
[2019-02-03 21:16] LABS: Bacteria 0 SEEN /hpf (None Seen); Mucous, Urine 0 SEEN /hpf (<or=2+); Red Blood Cells-Urine 0 SEEN /hpf (0-5); Squamous Epithelial Cells - UA 0 SEEN /hpf (0-5); White Blood Cells 0 SEEN /hpf (0-5)
[2019-02-03 21:21] LABS: Color, Urine Straw (Yellow); Glucose, Dipstick 1000 mg/dl (Normal); Ketone-Dipstick Negative (Negative); Leukocyte Esterase-Dipstick Negative /ul (Negative); Nitrite-Dipstick Negative (Negative); Occult Blood-Urine 10 /ul (Negative); Protein-Dipstick Negative (Negative); Specific Gravity, Urine 1.005 (1.002-1.030); Urine Bilirubin Dipstick Negative (Negative); Urine Clarity Clear (Clear); Urine Urobilinogen Normal (Normal)
[2019-02-03 22:23] VITALS: BP 138/87; PULSE 60; RESP 16; O2SAT 95
[2019-02-03 23:59] VITALS: BP 159/92; PULSE 60; RESP 16; O2SAT 93
[2019-02-04] VITALS: RESP 18
[2019-02-04 00:11] VITALS: BP 150/73; PULSE 60; RESP 14; O2SAT 94
== END 2019-02-04 00:12 | disposition home or self-care (01) ==
PROVIDERS: Emergency Provider Emergency Medicine; Family Provider Nurse Practitioner Family; PCP Nurse Practitioner Family
DX: Z04.1 Encounter for examination and observation following transport accident (principal); F10.129 Alcohol abuse with intoxication, unspecified; R45.1 Restlessness and agitation; V47.5XXA Car driver injured in collision with fixed or stationary object in traffic accident, initial encounter; Y93.9 Activity, unspecified; Y92.9 Unspecified place or not applicable; Y99.9 Unspecified external cause status; I49.5 Sick sinus syndrome; E11.9 Type 2 diabetes mellitus without complications; J44.9 Chronic obstructive pulmonary disease, unspecified; I10 Essential (primary) hypertension; F17.200 Nicotine dependence, unspecified, uncomplicated; Z79.4 Long term (current) use of insulin; Z79.899 Other long term (current) drug therapy; Z95.0 Presence of cardiac pacemaker; Z95.3 Presence of xenogenic heart valve; Z86.73 Personal history of transient ischemic attack (TIA), and cerebral infarction without residual deficits
CPT/HCPCS: 70450; 71045; 80053; 80320; 81001; 83690; 84484; 85025; 85610; 93005; 99285; A4216; G0480

== ENCOUNTER 2019-09-08 13:13 | Emergency (ER) | payer OTHER, SELFPAY ==
[2019-09-08 13:14] VITALS: BP 125/80; PULSE 67; RESP 15; TEMP 37.1; O2SAT 95; BMI 25.1
--- NOTE | 2019-09-08 13:56 | EKG12_ITS ---
Test Reason : ALCOHOLIC Blood Pressure : / mmHG Vent. Rate : 069 BPM Atrial Rate : 069 BPM P-R Int : 178 ms QRS Dur : 138 ms QT Int : 436 ms P-R-T Axes : 036 -01 101 degrees QTc Int : 467 ms Normal sinus rhythm Possible Left atrial enlargement Right bundle branch block Abnormal ECG Confirmed by ZHAO FRANCISCO, KETTY ([id number]), news copy editor MAILE BALDWIN ([id number]) on 09/12/2019 8:41:06 AM Referred By: CHRISTI Confirmed By:KETTY CHURCHILL MD
--- NOTE | 2019-09-08 14:18 | RAD_ITS ---
STUDY: X-RAY CHEST REASON FOR EXAM: Male, 59 years old. ETOH -- PT WITH HISTORY OF 3 CABG''S AND PACER TECHNIQUE: Single AP portable view of the chest. COMPARISON: Comparison is made with prior study dated 02/03/2019. FINDINGS: Surgical clips are seen in the right axillary region. Hyperinflation. Mild increase markings in the lingular segment of the left upper lobe. This may represent scarring. There is no demonstrated pleural abnormality. Sternal cerclage wires and vascular clips are present from a prior sternotomy and coronary artery bypass graft procedure (CABG). A left-sided dual-chamber pacemaker is seen. Normal mediastinum and akbar. Normal visualized pulmonary arteries. Normal visualized aortic arch and descending thoracic aorta. Normal visualized thoracic spine. Normal visualized ribs, clavicles, and shoulders. There is no demonstrated abnormality of the visualized soft tissue structures of the upper abdomen. RAD/Chest 1 View (Portable) IMPRESSION: Hyperinflation. There has been no change since prior study. Electronically Signed: Carlos Campos, at 14:31 EDT , Service support ,
[2019-09-08 14:22] LABS: Absolute Neutrophil Count 4.9 X10^3/uL (2.0-7.7); Basophil# 0.08 X10^3/uL; Basophil% 1.2 % (0-1); Eosinophil# 0.09 X10^3/uL; Eosinophils% 1.3 % (0-5); Hematocrit 38.6 % (40-54); Hemoglobin 12.7 g/dL (13.0-16.5); Lymphocyte % 18.8 % (19-41); Mean Corp Hgb Conc 32.9 g/dL (32-36); Mean Corpuscular Hgb 31.1 pg (27.0-32.0); Mean Corpuscular Volume 94.6 fL (80-94); Mean Platelet Vol. 10.7 fl (6.2-12.0); Monocyte# 0.48 X10^3/uL; Monocyte% 6.9 % (0-10); NRBC Flagged by Analyzer 0 % (0-5); Neutrophil # 4.94 X10^3/uL (2.7-7.7); Neutrophil % 71.4 % (47-70); POSITIVE COUNT YES; Platelet Count 214 K/mm3 (150-450); RBC Distribution Width CV 14.2 % (11.6-14.6); RBC Distribution Width SD 48.5 fl (35.1-43.9); Red Blood Count 4.08 M/mm3 (4.6-6.2); White Blood Count 6.9 K/mm3 (4.4-11.0)
[2019-09-08 14:33] LABS: Amphetamine Urine VISTA NEGATIVE (<1000 ng/mL); Barbiturate Urine VISTA NEGATIVE (< 200 ng/mL); Benzodiazepine Urine VISTA NEGATIVE (< 200 ng/mL); Cocaine Urine VISTA NEGATIVE (< 300 ng/mL); Ecstacy Urine VISTA NEGATIVE (< 500 ng/mL); Methadone Urine VISTA NEGATIVE (< 300 ng/mL); PCP Urine VISTA NEGATIVE (< 25 ng/mL); THC Urine VISTA NEGATIVE (< 50 ng/mL); Vista UDS pH Range 6
[2019-09-08] MEDS: Mag Hydrox/Al Hydrox/Simeth 30 ML UDC PO (14:33)
[2019-09-08 14:44] LABS: Differential Indicated SCAN CRITERIA MET
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
[2019-09-08 14:57] LABS: ALB/GLOB Ratio 0.9 RATIO (0.9-2.4); AST(SGOT) 52 U/L (15-37); Alanine Aminotransfer ALT/SGPT 32 U/L (16-61); Albumin, Serum 3.6 g/dL (3.2-5.0); Alkaline Phosphatase 115 U/L (45-117); Anion Gap 7 (5-15); BUN 9 mg/dL (7-18); BUN/Creat Ratio 8.3 RATIO (10-20); Calcium,Total 8.4 mg/dL (8.5-10.1); Chloride 107 mmol/L (98-107); Creatinine, Serum 1.08 mg/dL (0.70-1.30); EST Glomerular Filtration Rate 75 mL/min (>60); Est Glom Filt Rate - Afr Amer 91 mL/min (>60); Estimated Creatinine Clearance 80.37 ml/min; Globulin 3.8 g/dL (2.2-4.2); Glucose 269 mg/dL (74-106); Potassium 4.3 mmol/L (3.5-5.1); Protein, Total 7.4 g/dL (6.4-8.2); Sodium Level 141 mmol/L (136-145)
[2019-09-08 15:43] LABS: Acetaminophen (Tylenol) Level < 2.0 ug/mL (10.0-30.0); Salicylate 5.2 mg/dL (2.8-20.0)
--- NOTE | 2019-09-08 15:50 | CT_ITS ---
STUDY: CTA CHEST REASON FOR EXAM: Male, 59 years old. Chest pain evaluation for pulmonary embolism history of AAA repair RADIATION DOSAGE (If Supplied By Facility): CTDIvol = ( 12.62 ) mGy, DLP = ( 397.66 ) mGycm TECHNIQUE: The examination was performed with the intravenous administration of 100 CC ISOVUE 370. Post-processing of the angiographic images was performed, with multiplanar reformation and 3D reconstruction. Individualized dose optimization techniques were used for this CT. COMPARISON: None. FINDINGS: There is no acute or chronic pulmonary embolism. Aorta is of normal caliber. Lungs are clear. There is no pneumothorax, pulmonary edema or pleural effusions. Mediastinal contents are normal. There is prior aortic root/valve by a prostatic replacement. Osseous structures are intact. There are stippled calcifications in the pancreas due to chronic pancreatitis. CT/CTA Chest W/WO Contrast IMPRESSION: 1. No pulmonary embolism 2. Expected appearance of repaired normal diameter aorta. 3. Chronic pancreatitis changes. Electronically Signed: Andrea oCrona, at 16:54 EDT Tel , Service support ,
[2019-09-08 16:28] VITALS: PULSE 87; RESP 17; O2SAT 99
[2019-09-08 17:03] VITALS: PULSE 74; RESP 15; O2SAT 98
--- NOTE | 2019-09-08 17:59 | NURSING ---
FATHER, NARENDRA, CALLED. ASKED WHEN PATIENT WILL BE DISCHARGED. TOOK HIS PHONE NUMBER,
[2019-09-08 18:23] VITALS: BP 154/92; PULSE 74; RESP 16; O2SAT 98
--- NOTE | 2019-09-08 19:08 | CM.ED ---
Social Work Consult: Mental Health/ETOH intoxication Informant: Dr. Nair Chief Complaint: Patient reports I get frustrated when I drink. Patient states to get frustrated that patient decides to drink and I get down on myself. Marital/Social History: Single Living Situation: Lives with patient 92 year old father. Patient states that patient father is independent. Support/Resources: No active counseling. Reports support from father. History: None Education/Employment History: [employer], Full-time. Patient currently works 3rd shift. Mental Health Treatment/History: Depression. No active supports/services for mental health. No history of inpatient psychiatric placement. Triggers/Stressors: frustrated with the cycle. Patient defining cycle of patient drinking and then becoming frustrated with self for drinking. Copping Skills: I love to work. Patient also enjoys working outside/yard work. Abuse Issues: None Substance Abuse Hx: Patient states history of Heroine abuse and to have stopped using 5 years ago when patient son overdosed. Patient states current alcohol abuse and reports to consume 1 tall boy a day. Patient states to have consumed 2 tall boys today. Patient states to have called 911 because patient wanted to stop drinking but wasn't sure how to stop on own. Patient denies being concerned about patient ending own life but that patient wanted to stop drinking. Risk to Self/Others: Patient denies suicidal thoughts/plans/intents or history of. Patient states to want to live for daughter and my dad. Patient states to enjoy working and to be looking forward to working on Wednesday night. Mental Status Exam: A&Ox3 Appearance/General Behavior: Calm. Appropriate. Mood/Affect: Appropriate. Pleasant affect. Communication Pattern: Responds to questions. Thought Process: Denies any V/A hallucinations or paranoia. Judgement: Fair Assessment: Met with patient in room. Introduced self as well as bilingual social worker role. Patient agreeable to speaking with this bilingual social worker. Patient states to have attempted to call [facility] to set up an appointment with Liset flanagan counselor that patient has in the past. Patient states that it was too late. Patient states to have already drank 2 tall boys and needed help right away and that is when patient decided to call 911. Patient states I wasn't sure what else to do. Patient states to have a desire to stop drinking but not wanting to go through detox today. Patient wants to call [facility] on Wednesday and set up appointment with Liset to start working through this. Patient agreeable to social work completing a follow up call with patient tomorrow to see how patient is doing. This bilingual social worker educating patient on Crisis hotline as an option to call when patient is feeling overwhelmed/depressed. Patient provided with substance abuse resources, and counseling resources. Patient counseled on lethal means. Patient denies any firearms in the home. Patient states to feel safe to self. Patient with no concerns on returning to home and reports to have transportation. Collaborating with Dr. Donovan, who took over for Dr. Nair. Patient is cleared to discharge to home. PLAN: Discharge to home. CHASE Crook
[2019-09-08 19:33] VITALS: BP 156/99; PULSE 74; RESP 15; O2SAT 98
--- NOTE | 2019-09-09 17:00 | CM.ED ---
SOCIAL WORK Follow up call made to patient. No answer, left message with this worker's call back information. Willie Zhang, HEALTH CARE LEGAL ASSISTANT, PERFUMER
--- NOTE | 2019-09-09 18:28 | CM.ED ---
SOCIAL WORK Received call back from patient. Patient reports did not drink today. Patient states to have a headache and feel shakey. Patient states plan to follow up with primary care on Wednesday. Support, education and encouragement provided. LUPILLO Hair, AUDITING CONTROL CLERK
== END 2019-09-08 19:34 | disposition home or self-care (01) ==
PROVIDERS: Emergency Provider Emergency Medicine; PCP Nurse Practitioner Family
DX: F10.129 Alcohol abuse with intoxication, unspecified (principal); Y90.9 Presence of alcohol in blood, level not specified; F43.21 Adjustment disorder with depressed mood; I45.10 Unspecified right bundle-branch block; I35.0 Nonrheumatic aortic (valve) stenosis; K44.9 Diaphragmatic hernia without obstruction or gangrene; I71.9 Aortic aneurysm of unspecified site, without rupture; E11.9 Type 2 diabetes mellitus without complications; E78.5 Hyperlipidemia, unspecified; Z86.73 Personal history of transient ischemic attack (TIA), and cerebral infarction without residual deficits; Z95.3 Presence of xenogenic heart valve; Z79.84 Long term (current) use of oral hypoglycemic drugs; Z79.899 Other long term (current) drug therapy; F17.210 Nicotine dependence, cigarettes, uncomplicated
CPT/HCPCS: 36415; 71045; 71275; 80053; 80307; 80320; 80329; 84484; 85025; 93005; 99284; J7030; Q9967; G0480

== ENCOUNTER 2020-04-02 01:38 | Inpatient (IN) | payer OTHER, SELFPAY ==
[2020-04-02] VITALS (22 sets, daily range): BP systolic 92–166; BP diastolic 54–104; PULSE 80–117; RESP 15–22; TEMP 35.7–36.7; O2SAT 94–100; BMI 25.2; BMI 24.7; BMI 24.8
[2020-04-02 01:50] LABS: Bedside Glucose > 500 mg/dL (70-110)
[2020-04-02] MEDS: 0.9% Normal Saline 1,000 ML 1000 ML IV ×2 (01:58→03:00)
[2020-04-02 01:59] LABS: Absolute Lymphocyte Count 1.06 X10^3/uL (0.83-4.51); Absolute Neutrophil Count 9.2 X10^3/uL (2.0-7.7); Basophil# 0.09 X10^3/uL; Basophil% 0.8 % (0-1); Eosinophil# 0.12 X10^3/uL; Eosinophils% 1.1 % (0-5); Hematocrit 42.7 % (40-54); Hemoglobin 14.5 g/dL (13.0-16.5); Lymphocyte # 1.06 X10^3/ul (4.0); Lymphocyte % 9.5 % (19-41); Mean Corpuscular Hgb 32.4 pg (27.0-32.0); Mean Corpuscular Volume 95.5 fL (80-94); Monocyte# 0.66 X10^3/uL; Monocyte% 5.9 % (0-10); NRBC Flagged by Analyzer 0 % (0-5); Neutrophil # 9.19 X10^3/uL (2.7-7.7); Platelet Count 257 K/mm3 (150-450); RBC Distribution Width CV 12.5 % (11.6-14.6); RBC Distribution Width SD 43.8 fl (35.1-43.9); Red Blood Count 4.47 M/mm3 (4.6-6.2); White Blood Count 11.2 K/mm3 (4.4-11.0)
[2020-04-02] MEDS: Insulin NPH Human 100 UNITS/ML PEN 12 UNITS SC (02:07)
[2020-04-02 02:14] LABS: Anion Gap 16 (5-15); BUN 21 mg/dL (7-18); BUN/Creat Ratio 14.5 RATIO (10-20); Calcium,Total 8.8 mg/dL (8.5-10.1); Chloride 90 mmol/L (98-107); Creatinine, Serum 1.45 mg/dL (0.70-1.30); EST Glomerular Filtration Rate 53 mL/min (>60); Est Glom Filt Rate - Afr Amer 64 mL/min (>60); Estimated Creatinine Clearance 59.86 ml/min; Glucose 627 mg/dL (74-106); Potassium 4.8 mmol/L (3.5-5.1); Sodium Level 125 mmol/L (136-145)
[2020-04-02 02:46] LABS: Blood Gas Specimen Type VEN; VBG BASE EXCESS -7 mmol/L (-1.0-3.5); VBG Bicarbonate 19 mmol/L (22-26); VBG PO2 30 mmHg (25-40); VBG SO2 50 % (50-70); VBG TCO2 21 mmol/L (23-33); VBG pCO2 39.8 mmHg (41-51); VBG pH 7.29 (7.32-7.42)
--- NOTE | 2020-04-02 02:47 | ED.DCSUM_ITS ---
- ER Visit Summary Date of Service: 04/02/20 Chief Complaint: High blood sugar History of Present Illness: The patient is a 59 M with type 2 diabetes. He takes Levemir 15 units twice a day and Metformin. His Levemir pen broke, and he did not have it today. He did not refill it because he was sleeping in the morning and then went to work in the evening. He is feeling dizzy and so he came to the ED. He said his sugars were around 600. Physical Examination: Tachycardic but otherwise vitals unremarkable. Nontoxic and in no acute distress. Exam otherwise unremarkable. Test Results: White count 11.2, sodium 125, chloride 90, CO2 19, anion gap 16, glucose 627, BUN 21, creatinine 1.45. Moderate ketones and pH 7.29. Emergency Department Course and Treatment: Patient was treated with IV fluids on arrival as his bedside glucose was 591. He also received NPH as we do not have long-acting insulin. Laboratory studies started coming back and were worse than he appeared on exam. He did meet criteria for mild DKA. We will continue with fluids and insulin therapy. Hospitalist was contacted to admit. Please note that the patient has a history of alcohol abuse. His last beer was earlier in the day on Wednesday. He had one beer. He is not drinking regularly anymore, and he does not anticipate withdrawal or DTs. Treatment Plan: As above Disposition: Admission Impression: DKA This note was generated with [employer] dictation software. It may contain incorrect words, spelling, and punctuation that were not noted in review of the chart prior to signing ED Disposition - Plan for ED Patient: Referrals: Dk Pathak [facility], [facility] [Primary Care Provider] -
--- NOTE | 2020-04-02 03:01 | HP.PCM_ITS ---
Problem List (1) DKA (diabetic ketoacidosis) Status: Acute (2) History of aortic aneurysm repair Status: Resolved Comment: 2005 @ [facility]; and 2016 @ [facility] (3) Pure hypercholesterolemia Status: Chronic (4) History of aortic valve replacement with bioprosthetic valve Status: Resolved Comment: aortic valve replacement with mechanical valve 01/22/15; redo aortic valve replacement with a Bovine Valve [facility] 2016 (5) Cardiac pacemaker in situ Status: Chronic (6) Essential hypertension Status: Chronic (7) Diabetes mellitus, type II Status: Chronic Qualifiers: (8) Tobacco use Status: Chronic History of Present Illness Date of Admission: 04/02/20 Chief Complaint: hyperglycemia The patient is a 59 year old male patient with a significant past medical history of diabetes who presents the emergency room with hyperglycemia. The patient's reports not taking his insulin the past day and has felt progressively tired, with nausea and headache. Initial blood sugar in the emergency room was greater than 500, anion gap is 16 and he is positive for acetone, venous blood gas pH of 7.29. The patient has received 2 boluses of normal saline and 12 units of regular insulin in the emergency room. Upon review of laboratory abnormalities it was felt admission with insulin drip to correct the DKA was warranted. Compliance and future random cessation of insulin was discussed with the patient to avoid serious life-threatening condition such as this. Patient has a history of alcoholism and has been decreasing his consumption and states his last alcoholic beverage was approximately 24 hours ago. Past Medical History Past Medical History (Chronic Problems): Chronic Problems Pure hypercholesterolemia (Chronic) Left carotid bruit (Chronic) Cardiac pacemaker in situ (Chronic ~06/2016) Essential hypertension (Chronic) 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) Sick sinus syndrome (Chronic) Diabetes mellitus, type II (Chronic) Tobacco use (Chronic) Medical History: Medical History (Last Reviewed 06/13/18 @ 08:39 by Марина Ku) SVT (supraventricular tachycardia) (Acute) I47.1 Pure hypercholesterolemia (Chronic) E78.00 Left carotid bruit (Chronic) R09.89 Cardiac pacemaker in situ (Chronic) Onset Date: ~06/2016 Z95.0 Essential hypertension (Chronic) I10 Shortness of breath (Acute) R06.02 Pleuritic chest pain (Acute) R07.81 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) Sick sinus syndrome (Chronic) I49.5 Diabetes mellitus, type II (Chronic) E11.9 Tobacco use (Chronic) Z72.0 Ascending aortic dissection Onset Date: ~2005 I71.01 Adrenal nodule E27.9 Left Hiatal hernia K44.9 Aortic aneurysm (Inactive) I71.9 HTN (hypertension) (Inactive) I10 Pacemaker (Inactive) Z95.0 Allergies No Known Allergies Allergy (Verified 04/02/20 01:39) Home Medications: Ambulatory Orders Medication Instructions Recorded metoprolol succinate 100 mg 100 mg PO DAILY 06/10/18 tablet,extended release 24 hr omeprazole 40 mg capsule,delayed 40 mg PO DAILY 06/10/18 release Hydrochlorothiazide 12.5 mg PO DAILY 08/24/18 Ramipril 10 mg PO DAILY 08/24/18 Atorvastatin Calcium [Lipitor] 40 mg PO QHS #30 tab 08/27/18 metFORMIN HCl [Glucophage] 500 mg PO DAILY 01/21/19 Amlodipine [Norvasc] 5 mg PO DAILY 09/08/19 Lipase/Protease/Amylase [Zenpep Dr 1 cap PO 5X/DAY 09/08/19 5,000 Unit Capsule] hydrALAZINE [Apresoline] 25 mg PO TID 09/08/19 Insulin Detemir [Levemir] 15 units SC BID 04/02/20 Surgical History: Surgical History (Last Reviewed 06/13/18 @ 08:39 by Марина Ku) History of aortic aneurysm repair (Resolved) Onset Date: ~2017 Z98.890, Z86.79 2006 @ [facility]; and 2017 @ [facility] History of aortic valve replacement with bioprosthetic valve (Resolved) Onset Date: ~2017 Z95.3 aortic valve replacement with mechanical valve 01/22/15; redo aortic valve replacement with a Bovine Valve [facility] 2017 History of cataract surgery Z98.49 History of hernia repair Z98.890, Z87.19 H/O aortic valve replacement (Inactive) Z95.2 Surgical History: - - Aortic aneurysm repair and aortic valve replacement (bovine) with total 3 separate surgies, most recent 04/2016 [facility], R inguinal hernia repair. Psychiatric History: No pertinent psych hx Smoking Status: Current every day smoker - *Family History Maternal Family History: Family History (Last Reviewed 06/13/18 @ 08:39 by Марина Ku) Father CAD (coronary artery disease) Mother Dementia History Items: Dementia Paternal Family History: Family History (Last Reviewed 06/13/18 @ 08:39 by Марина Ku) Father CAD (coronary artery disease) Mother Dementia History Items: Heart Disease Review of Systems Constitutional: Reports: Weakness, Fatigue. Denies: Chills, Fever, Weight Change HEENT: Denies: Head Aches, Sinus Congestion, Sinus Drainage Cardiovascular: Denies: Chest Pain, Palpitations Respiratory: Denies: Cough, Shortness of breath at rest, Sputum production Gastrointestinal: Reports: Nausea. Denies: Abdominal Pain, Vomiting Genitourinary: Denies: Dysuria Musculoskeletal: Denies: Joint Pain, Joint Tenderness Skin: Denies: Rash, Wounds Neurological: Reports: Headaches. Denies: Focal weakness, Numbness, Tingling Psychiatric: Denies: Anxiety, Depression, Homicidal Ideations, Suicidal Ideations Hematologic/ Lymphatic: Denies: Easy Bruising, Easy Bleeding VTE Information - Inpt Only VTE Present on Admission: No VTE Mechan Device Prophylaxis: None VTE Pharm Prophylaxis ordered?: Yes - Physical Exam Vitals/I&O's: Vital Signs Temp Pulse Resp BP Pulse Ox 96.2 F L 117 H 16 138/103 H 98 04/02/20 01:39 04/02/20 01:39 04/02/20 01:39 04/02/20 01:39 04/02/20 01:39 Oxygen Delivery Method Room Air Weight: 181 lb 7.047 oz Body Mass Index (BMI) 25.2 Finger Stick Blood Glucose 364 General: Alert, Oriented x3, Cooperative HEENT: Atraumatic, Normocephalic Neck: Supple, No JVD, Negative Carotid Bruits Lungs: Clear to auscultation, Normal air movement Cardiovascular: Regular rate, Normal S1, Normal S2, Murmur, Tachycardic Abdomen: Bowel Sounds Present, Soft, Non Tender Extremities: No edema Skin: No rashes Musculoskeletal: No Tenderness to Palpation of Joints or Extremities Neurological: Neuro grossly intact Psych/Mental Status: Normal Affect, Appropriate Laboratory Results 04/02/20 01:44: POC Glucose > 500 H* 04/02/20 01:45: WBC 11.2 H, RBC 4.47 L, Hgb 14.5, Hct 42.7, MCV 95.5 H, MCH 32.4 H, MCHC 34.0, RDW Std Deviation 43.8, RDW Coeff of Kalp[place] 12.5, Plt Count 257, MPV 11.0, Immature Gran % (Auto) 0.700, Neut % (Auto) 82.0 H, Lymph % (Auto) 9.5 L, [place] % (Auto) 5.9, Eos % (Auto) 1.1, Baso % (Auto) 0.8, Absolute Neuts (auto) 9.2 H, Absolute Lymphs (auto) 1.06, Nucleated RBC % 0 04/02/20 01:45: Sodium 125 L, Potassium 4.8, Chloride 90 L, Carbon Dioxide 19.0 L, Anion Gap 16 H, BUN 21 H, Creatinine 1.45 H, Estim Creat Clear Calc 59.86, Est GFR (MDRD) Af Amer 64, Est GFR (MDRD) Non-Af 53 L, BUN/Creatinine Ratio 14.5, Glucose 627 H*, Calcium 8.8 04/02/20 01:45: Acetone Level MODERATE H 04/02/20 02:41: Specimen Type ROSA, VBG pH 7.29 L, VBG pO2 30, VBG HCO3 19 L, VBG Total CO2 21 L, VBG O2 Sat (Calc) 50, VBG Base Excess -7 L, POC Mix VBG pCO2 Pt Tmp 39.8 L Current Medications Dextrose (Dextrose 50%-Water 25 Gm/50 Ml Disp.Syrin) 0 gm IV X1 PRN; Protocol PRN Reason: Hypoglycemia Protocol Sodium Chloride () 1,000 mls @ 1,000 mls/hr IV .Q1H [facility] Stop: 04/02/20 03:54 Last Admin: 04/02/20 01:58 Dose: 1,000 mls/hr Documented by: Insulin Human Lispro 100 unit/ (Sodium Chloride) 100 mls @ 8.23 mls/hr CONT INF .[id number] [facility]; Protocol Assessment/Plan All Active Problems (Last Reviewed 06/13/18 @ 08:39 by Марина Ku) Alcohol withdrawal (Acute) Stroke (Acute) DKA (diabetic ketoacidosis) (Acute) SVT (supraventricular tachycardia) (Acute) History of aortic aneurysm repair (Resolved ~2016) History of aortic valve replacement with bioprosthetic valve (Resolved ~2016) Shortness of breath (Acute) Pleuritic chest pain (Acute) Chronic Problems Pure hypercholesterolemia (Chronic) Left carotid bruit (Chronic) Cardiac pacemaker in situ (Chronic ~06/2016) Essential hypertension (Chronic) 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) Sick sinus syndrome (Chronic) Diabetes mellitus, type II (Chronic) Tobacco use (Chronic) Plan 1. Diabetic ketoacidosis?admit patient to ICU, insulin drip, follow DKA pr otocol, repeat BMP, and acetone level in the morning 2. Hyperlipidemia?continue statin 3. Hypertension?continue home medications 4. Tobacco use?cessation encouraged 5. Alcoholism?observe for signs of withdrawal 6. DVT prophylaxis?low molecular weight heparin Inpatient E&M: [id number] Init Hosp L3
[2020-04-02 03:21] LABS: Bedside Glucose 455 mg/dL (70-110)
[2020-04-02] MEDS: 0.9% Normal Saline 1,000 ML 250 ML IV (04:59)
[2020-04-02 05:36] LABS: Anion Gap 8 (5-15); BUN 18 mg/dL (7-18); BUN/Creat Ratio 18.4 RATIO (10-20); Calcium,Total 7.9 mg/dL (8.5-10.1); Chloride 105 mmol/L (98-107); Creatinine, Serum 0.98 mg/dL (0.70-1.30); EST Glomerular Filtration Rate 84 mL/min (>60); Est Glom Filt Rate - Afr Amer 101 mL/min (>60); Estimated Creatinine Clearance 88.58 ml/min; Glucose 274 mg/dL (74-106); Potassium 3.7 mmol/L (3.5-5.1); Sodium Level 136 mmol/L (136-145)
[2020-04-02] MEDS: Dext 5%-0.45% NS 1,000 ML 150 ML IV (06:28)
[2020-04-02 06:49] LABS: Bedside Glucose 196 mg/dL (70-110)
[2020-04-02 06:49] LABS: Bedside Glucose 282 mg/dL (70-110)
[2020-04-02 07:09] LABS: Bedside Glucose 172 mg/dL (70-110)
[2020-04-02 07:19] LABS: Hemoglobin A1c 12.8 % (3.8-5.6)
[2020-04-02 07:55] LABS: Bedside Glucose 151 mg/dL (70-110)
[2020-04-02 08:13] LABS: Anion Gap 7 (5-15); BUN 16 mg/dL (7-18); BUN/Creat Ratio 20.2 RATIO (10-20); Calcium,Total 7.8 mg/dL (8.5-10.1); Chloride 108 mmol/L (98-107); Creatinine, Serum 0.79 mg/dL (0.70-1.30); EST Glomerular Filtration Rate 107 mL/min (>60); Est Glom Filt Rate - Afr Amer 129 mL/min (>60); Estimated Creatinine Clearance 109.88 ml/min; Glucose 139 mg/dL (74-106); Potassium 3.6 mmol/L (3.5-5.1); Sodium Level 138 mmol/L (136-145)
[2020-04-02 09:55] LABS: Bedside Glucose 153 mg/dL (70-110)
--- NOTE | 2020-04-02 10:47 | CASEMGMT ---
SW met w/pt in room, in regard to history of alcohol abuse and heroin use. Pt still lives home w/92 year old father, states his father is doing well. SW asked pt about the alcohol history. Pt states is back at [facility] and meeting w/his counselor Liset every other Wednesday. Pt states he is drinking less, drinking 2 tallboys a day. Pt states has not been taking care of himself but is starting to try. He plans to eventually stop drinking altogether. Pt has been sober in the past, states has been sober for as long as 4 years in the past. In regard to heroin, pt states quit and has not used in a few years. Pt denies depression, denies being suicidal. Pt states has not felt like that in a long time, has no plan, no intent to harm himself. Pt states when he was here 8 months ago he made a comment that if he couldn't get better he didn't want to do this anymore. Pt states he was not suicidal then either, but it was interpreted that way. Pt also does acknowledge he has made comments when intoxicated that he did not mean, in regard to wanting to harm himself. SW inquired if he has ever been diagnosed w/depression, he states no, was diagnosed with adjustment disorder. SW inquired if he knew what that meant, pt did not, SW educated pt on what this means. Pt declined any additional referrals for mental health or substance abuse. Pt plans to continue with Liset at [facility] at this time. SW remains available for any additional social service needs. KARAN Weston
--- NOTE | 2020-04-02 11:23 | ECHOD_ITS ---
Reason For Study: Elevated Troponins Procedure This was a 2D Doppler, Color Flow transthoracic echocardiogram. Exam performed portable in ICU/CCU. Left Ventricle Normal LV size. Severe concentric left ventricular hypertrophy. Left ventricular systolic function is normal. The estimated ejection fraction is 70 %. Transmitral doppler flow suggestive of impaired relaxation of left ventricle. No regional wall motion abnormalities noted. Right Ventricle Normal RV size. ICD or pacer leads identified within the right ventricle. Normal systolic function. Atria Normal left atrium. Normal right atrium. ICD or pacer leads identified within the right atrium. No doppler evidence for ASD. Mitral Valve There is no mitral annular calcification. Mild diffuse mitral valve thickening. Trivial mitral valve insufficiency. Tricuspid Valve Normal tricuspid valve. Mild tricuspid valve insufficiency. Right ventricular systolic pressure estimated to be 19 mmHg. Aortic Valve Stable appearing bioprosthetic aortic valve apparatus. Pulmonic Valve The pulmonic valve is not well visualized. Great Vessels Normal sized aortic root. Pericardium/Pleural No pericardial effusion. MMode/2D Measurements & Calculations LVIDd: 3.9 cm IVSd: 2.2 cm LVOT diam: 2.0 cm LVIDs: 2.4 cm LVPWd: 1.5 cm LVOT area: 3.2 cm2 FS: 37.1 % Ao root diam: 3.7 cm LAV(MOD-bp): 47.1 ml LA A4 area: 16.6 cm2 LA dimension: 4.6 cm LAV(MOD-bp) Indexed: 23.5 ml/m2 LAV(MOD-sp2): 48.5 ml LAV(MOD-sp4): 41.3 ml RA A4 area: 16.2 cm2 Time Measurements MV dec time: 0.30 sec Doppler Measurements & Calculations MV E max natan: 50.7 cm/sec Lat Peak E' Natan: 9.9 cm/sec Med Peak E' Natan: 4.4 cm/sec MV A max natan: 91.4 cm/sec E/E' lat: 5.1 E/E' med: 11.6 MV E/A: 0.55 MV V2 max: 94.5 cm/sec MV P1/2t max natan: 64.7 cm/sec Ao V2 max: 247.6 cm/sec MV max P.6 mmHg MV P1/2t: 91.4 msec Ao max P.6 mmHg MV V2 mean: 50.7 cm/sec MV dec slope: 207.3 cm/sec2 Ao V2 mean: 162.1 cm/sec MV mean P.2 mmHg Ao mean P.6 mmHg MV V2 VTI: 20.9 cm MVA(P1/2t): 2.4 cm2 Ao V2 VTI: 39.9 cm MVA(VTI): 3.9 cm2 SAY(I,D): 2.0 cm2 SAY(V,D): 2.1 cm2 LV V1 max: 159.8 cm/sec SV(LVOT): 81.4 ml PA V2 max: 93.4 cm/sec LV V1 max P.2 mmHg LV V1 mean P.9 mmHg LV V1 mean: 100.0 cm/sec LV V1 VTI: 25.3 cm TR max natan: 201.3 cm/sec TR max P.2 mmHg Interpretation Summary Left ventricular systolic function is normal. The estimated ejection fraction is 70 %. Severe concentric left ventricular hypertrophy. Mild diffuse mitral valve thickening. Trivial mitral valve insufficiency. Mild tricuspid valve insufficiency. Stable appearing bioprosthetic aortic valve apparatus. Right ventricular systolic pressure estimated to be 19 mmHg. Transmitral doppler flow suggestive of impaired relaxation of left ventricle ICD or pacer leads identified within the right atrium ICD or pacer leads identified within the right ventricle. Ordering Physician: Ashley Alvarado Referring Physician: Dk Pathak Performed By: Rolan Strange RCS
--- NOTE | 2020-04-02 11:25 | PCM.PN.HOSP ---
Patient Problems: Active and Suspected Problems (Last Reviewed 06/13/18 @ 08:39 by Марина Ku) DKA (diabetic ketoacidosis) (Acute) Subjective: Patient seen and examined. He was admitted with a complaint of hyperglycemia. He had not taken his insulin for 1 day as he had run out and not yet been able to pickler helper his new prescription. He complained of nausea and headache. Initial blood sugars was greater than 500 and anion gap of 16 he was also positive for acetones. He has been managed for DKA. Patient has no complaints this morning and feels well. All his symptoms have resolved. Review of systems otherwise negative. Gap is closed and is 7. Troponins also trended up from 0.183 to a peak of 0.229. Denies chest pain and denies having any previous heart attacks. Vitals/I&O's: Vital Signs Temp Pulse Resp BP Pulse Ox 98.1 F 84 15 128/86 H 97 04/02/20 08:00 04/02/20 11:14 04/02/20 11:00 04/02/20 11:00 04/02/20 11:00 Oxygen Delivery Method Room Air Weight: 177 lb 7.554 oz Body Mass Index (BMI) 24.7 Finger Stick Blood Glucose 196 Intake and Output for Last 24 Hours 03/31/20 04/01/20 04/02/20 23:59 23:59 23:59 Intake Total 3018.18 / 3018.18 Balance 3018.18 / 3018.18 General: Alert, Oriented x3, Cooperative HEENT: Atraumatic, PERRLA, EOMI, Normocephalic Oral: Dry Mucosa Neck: Supple, No JVD, Negative Carotid Bruits Lungs: Clear to auscultation, Normal air movement Cardiovascular: Regular rate, Normal S1, Normal S2, - - Mechanical aortic valve click as well as grade 3 systolic murmur over the aortic and pulmonary regions. Abdomen: Bowel Sounds Present, Soft, Non Tender Extremities: No edema, Capillary Refill Less than 3 Seconds Skin: No rashes, No breakdown Musculoskeletal: No Tenderness to Palpation of Joints or Extremities Neurological: Cranial nerves II-XII grossly intact Psych/Mental Status: Normal Affect, Appropriate, Alert and oriented to time, place, person, mood and affect Laboratory Results 04/02/20 01:44: POC Glucose > 500 H* 04/02/20 01:45: WBC 11.2 H, RBC 4.47 L, Hgb 14.5, Hct 42.7, MCV 95.5 H, MCH 32.4 H, MCHC 34.0, RDW Std Deviation 43.8, RDW Coeff of Kalpana 12.5, Plt Count 257, MPV 11.0, Immature Gran % (Auto) 0.700, Neut % (Auto) 82.0 H, Lymph % (Auto) 9.5 L, [place] % (Auto) 5.9, Eos % (Auto) 1.1, Baso % (Auto) 0.8, Absolute Neuts (auto) 9.2 H, Absolute Lymphs (auto) 1.06, Nucleated RBC % 0 04/02/20 01:45: Sodium 125 L, Potassium 4.8, Chloride 90 L, Carbon Dioxide 19.0 L, Anion Gap 16 H, BUN 21 H, Creatinine 1.45 H, Estim Creat Clear Calc 59.86, Est GFR (MDRD) Af Amer 64, Est GFR (MDRD) Non-Af 53 L, BUN/Creatinine Ratio 14.5, Glucose 627 H*, Calcium 8.8 04/02/20 01:45: Acetone Level MODERATE H 04/02/20 01:45: Troponin I 0.183 H 04/02/20 02:41: Specimen Type ROSA, VBG pH 7.29 L, VBG pO2 30, VBG HCO3 19 L, VBG Total CO2 21 L, VBG O2 Sat (Calc) 50, VBG Base Excess -7 L, POC Mix VBG pCO2 Pt Tmp 39.8 L 04/02/20 03:15: POC Glucose 455 H* 04/02/20 04:54: POC Glucose 282 H 04/02/20 05:10: Hemoglobin A1c 12.8 H 04/02/20 05:10: Sodium 136, Potassium 3.7, Chloride 105, Carbon Dioxide 23.0, Anion Gap 8, BUN 18, Creatinine 0.98, Estim Creat Clear Calc 88.58, Est GFR (MDRD) Af Amer 101, Est GFR (MDRD) Non-Af 84, BUN/Creatinine Ratio 18.4, Glucose 274 H, Calcium 7.9 L 04/02/20 05:10: Troponin I 0.214 H 04/02/20 06:03: POC Glucose 196 H 04/02/20 07:05: POC Glucose 172 H 04/02/20 07:46: POC Glucose 151 H 04/02/20 07:50: Sodium 138, Potassium 3.6, Chloride 108 H, Carbon Dioxide 23.0, Anion Gap 7, BUN 16, Creatinine 0.79, Estim Creat Clear Calc 109.88, Est GFR (MDRD) Af Amer 129, Est GFR (MDRD) Non-Af 107, BUN/Creatinine Ratio 20.2 H, Glucose 139 H, Calcium 7.8 L 04/02/20 07:50: Troponin I 0.229 H 04/02/20 09:51: POC Glucose 153 H Current Medications Dextrose (Dextrose 50%-Water 25 Gm/50 Ml Disp.Syrin) 0 gm IV X1 PRN; Protocol PRN Reason: HYPOGLYCEMIA Insulin Human Lispro 100 unit/ (Sodium Chloride) 100 mls @ 8.23 mls/hr CONT INF .[id number] KUNAL; Protocol Last Infusion: 04/02/20 06:00 Dose: 2.1 mls/hr Documented by: Sodium Chloride () 250 mls @ 15 mls/hr IV .[id number] PRN PRN Reason: Saline Flush Sodium Chloride () 250 mls @ 15 mls/hr IV .[id number] PRN PRN Reason: Additional IVPB Infusion Dextrose/Sodium Chloride () 1,000 mls @ 150 mls/hr IV .[id number] KUNAL Last Admin: 04/02/20 06:28 Dose: 150 mls/hr Documented by: Non-Formulary Medication (Insulin Detemir [Levemir]) 15 units SC BID [facility] Sodium Chloride (0.9% Saline Lock 10 Ml Syringe) 10 - 40 ml IV UD PRN PRN Reason: SALINE FLUSH STROKE Vital Signs/Narrative: Vital Signs Temp Pulse Resp BP Pulse Ox 04/02/20 11:14 84 04/02/20 11:00 85 15 128/86 H 97 04/02/20 10:00 85 22 H 129/83 H 98 04/02/20 09:00 84 17 115/80 97 04/02/20 08:00 98.1 F 88 19 H 117/75 95 Medical Necessity - Tobacco Use Smoking Status: Current every day smoker Assessment/Plan All Active Problems (Last Reviewed 06/13/18 @ 08:39 by Марина Ku) Alcohol withdrawal (Acute) Stroke (Acute) DKA (diabetic ketoacidosis) (Acute) SVT (supraventricular tachycardia) (Acute) History of aortic aneurysm repair (Resolved ~2017) History of aortic valve replacement with bioprosthetic valve (Resolved ~2017) Shortness of breath (Acute) Pleuritic chest pain (Acute) #DKA Anion gap is closed and blood sugars are down to 153 this morning. A1c is 12.8. Will switch to patient's home dose of insulin Lantus 25 units twice daily. Stop insulin drip. Insulin sliding scale. Checks AC at bedtime. ISS. Accuchecks ACHS #Elevated troponins. Troponins peaked at 0.229. Denies any chest pain. Will check 2D echo. T This could be demand ischemia from DKA. #Hypertension: On metoprolol and hydrochlorothiazide as well as ramipril and hydralazine #Nicotine dependence: Nicotine patch. #History of chronic pancreatitis: On Creon enzyme replacement. DVT prophylaxis: lovenox Inpatient E&M: [id number] [facility] H[facility] L3
--- NOTE | 2020-04-02 12:07 | CASEMGMT ---
RN CM Assessment Intro role of CM to patient in room. Assessment abbreviated as echo needed to be completed. Pt stated his insulin pen broke and he did not take it back to pharmacy for replacement. He stated he took it apart to try and fix it. Demographics, PCP verified. Diagnosis: DKA PCP: YADIRA Pathak Specialists: none. Pt states PCP manages his diabetes Insurance: [employer]I [facility] Preferred Pharmacy: [facility]. Called to pharmacy: Pt does have Levemir refill available and pharmacist felt the refill should go through without difficulty. Prescription Benefit: yes LNOK: Daughter Terra Cuevas Living Arrangements: Pt lives with his elderly father. Pt states they help each other. Pt is independent with ADL and does not require assistance. Tranportation: father drives, pt does not have license. DME: BGM- functioning, but patient needs script for supplies. HHC: no SNF: no SW referral: pt follows up with 180. Patient DC Goals: Home DC Plan: Home on discharge. Per [facility]'s pharmacy, pt has Levemir refill available and will need script for BGM supplies, CM available for discharge planning coordination. Contact CM for any concerns/needs that may arise. Germán BOLIVAR RN ACM
[2020-04-02] MEDS: 0.9% Saline Lock 10 ML Syringe IV ×2 (12:32→13:47)
[2020-04-02 12:40] LABS: Bedside Glucose 125 mg/dL (70-110)
--- NOTE | 2020-04-02 13:17 | CASEMGMT ---
LW/POA forms not on file. SW spoke w/pt, he is agreeable to complete the forms. LW/POA forms completed, copies on chart and originals with copies given to pt. No further needs anticipated. KARAN Weston
[2020-04-02] MEDS: Phenobarbital 32.4 MG Tablet 97.2 MG PO ×2 (16:04→20:21)
[2020-04-02 16:15] LABS: Bedside Glucose 398 mg/dL (70-110)
[2020-04-02] MEDS: Insulin Lispro 100 UNIT/ML INSULN.PEN SC ×2 (16:27→21:53)
[2020-04-02] MEDS: hydrOXYzine PAM 25 MG Capsule 50 MG PO (17:39)
[2020-04-02 22:20] LABS: Bedside Glucose 378 mg/dL (70-110)
[2020-04-03] MEDS: Phenobarbital 32.4 MG Tablet 97.2 MG PO ×3 (00:37→09:29)
[2020-04-03 02:00] VITALS: BP 149/88; PULSE 80; RESP 18; TEMP 36.6; O2SAT 95
[2020-04-03 04:00] VITALS: BP 129/74; PULSE 64; RESP 18; TEMP 36.8; O2SAT 99
[2020-04-03 06:06] LABS: Absolute Lymphocyte Count 0.98 X10^3/uL (0.83-4.51); Absolute Neutrophil Count 3.6 X10^3/uL (2.0-7.7); Basophil# 0.08 X10^3/uL; Basophil% 1.5 % (0-1); Eosinophil# 0.14 X10^3/uL; Eosinophils% 2.6 % (0-5); Hematocrit 35.2 % (40-54); Lymphocyte # 0.98 X10^3/ul (4.0); Lymphocyte % 18.4 % (19-41); Mean Corp Hgb Conc 34.1 g/dL (32-36); Mean Corpuscular Volume 96.7 fL (80-94); Mean Platelet Vol. 10.9 fl (6.2-12.0); Monocyte# 0.48 X10^3/uL; NRBC Flagged by Analyzer 0 % (0-5); Neutrophil # 3.61 X10^3/uL (2.7-7.7); Neutrophil % 67.9 % (47-70); Platelet Count 174 K/mm3 (150-450); RBC Distribution Width CV 12.8 % (11.6-14.6); RBC Distribution Width SD 45.1 fl (35.1-43.9); Red Blood Count 3.64 M/mm3 (4.6-6.2); White Blood Count 5.3 K/mm3 (4.4-11.0)
[2020-04-03 06:31] LABS: Anion Gap 7 (5-15); BUN 11 mg/dL (7-18); BUN/Creat Ratio 16.5 RATIO (10-20); Chloride 110 mmol/L (98-107); Creatinine, Serum 0.67 mg/dL (0.70-1.30); EST Glomerular Filtration Rate 131 mL/min (>60); Est Glom Filt Rate - Afr Amer 158 mL/min (>60); Estimated Creatinine Clearance 129.56 ml/min; Glucose 133 mg/dL (74-106); Potassium 3.7 mmol/L (3.5-5.1); Sodium Level 140 mmol/L (136-145)
[2020-04-03 06:32] LABS: Bedside Glucose 130 mg/dL (70-110)
[2020-04-03 07:04] VITALS: PULSE 65
--- NOTE | 2020-04-03 09:09 | PCM.DC ---
- Discharge Diagnoses Current Active Problems: Current Active and Chronic Problems DKA (diabetic ketoacidosis) (Acute) Pure hypercholesterolemia (Chronic) Cardiac pacemaker in situ (Chronic ~06/2016) Essential hypertension (Chronic) Diabetes mellitus, type II (Chronic) Tobacco use (Chronic) You will use the following diet at home:: Calorie/Carbohydrate Controlled (specify 1200, 1400, etc) - 1800 CALORIES Your food should be the consistency of: Regular Your liquids should be the consistency of: Regular/Thin Discharge Activity: Return to Normal Activity Weight Bearing Status: Weight bearing as tolerated Call your doctor if you observe: Fever of 101 or Higher, Shortness of breath, Swelling in the ankles Allergies/Adverse Reactions: Allergies No Known Allergies Allergy (Verified 04/02/20 01:39) Medications to take at Discharge metoprolol succinate 100 mg tablet,extended release 24 hr 100 mg PO DAILY 06/10/18 omeprazole 40 mg capsule,delayed release 40 mg PO DAILY 06/10/18 Hydrochlorothiazide 12.5 mg PO DAILY 08/24/18 Ramipril 10 mg PO DAILY 08/24/18 Atorvastatin Calcium [Lipitor] 40 mg PO QHS #30 tab 08/27/18 metFORMIN HCl [Glucophage] 500 mg PO DAILY 01/21/19 Amlodipine [Norvasc] 5 mg PO DAILY 09/08/19 Lipase/Protease/Amylase [Zenpep Dr 5,000 Unit Capsule] 1 cap PO 5X/DAY 09/08/19 hydrALAZINE [Apresoline] 25 mg PO TID 09/08/19 Insulin Detemir [Levemir] 15 units SC BID 04/02/20 Orders to be completed after discharge: Glucometer Location: None Selected Primary Care Physician: Dk Pathak STREET CLEANING EQUIPMENT OPERATOR, STREET CLEANING EQUIPMENT OPERATOR-C [Primary Care Provider] - Please follow up with your Primary Care Physician in: 1-2 WEEKS Test Results: Test results from this visit will be discussed in further detail at your follow-up appointment, if applicable. Proposed Discharge Date: 04/03/20
[2020-04-03 09:15] VITALS: BP 115/76; PULSE 100; RESP 16; TEMP 36.6; O2SAT 98
[2020-04-03] MEDS: Thiamine Hydrochloride 100 MG Tablet PO (09:24)
[2020-04-03] MEDS: Folic Acid 1 MG Tablet PO (09:24)
--- NOTE | 2020-04-03 10:21 | PHA.DC.MR ---
Pharmacy Service has performed discharge medication reconciliation for this patient. The patient's discharge medication list was reviewed for discrepancies and discrepancies were resolved. Home Medications metoprolol succinate 100 mg tablet,extended release 24 hr 100 mg PO DAILY 06/10/18 omeprazole 40 mg capsule,delayed release 40 mg PO DAILY 06/10/18 Hydrochlorothiazide 12.5 mg PO DAILY 08/24/18 Ramipril 10 mg PO DAILY 08/24/18 Atorvastatin Calcium [Lipitor] 40 mg PO QHS #30 tab 08/27/18 metFORMIN HCl [Glucophage] 500 mg PO DAILY 01/21/19 Amlodipine [Norvasc] 5 mg PO DAILY 09/08/19 Lipase/Protease/Amylase [Zenpep Dr 5,000 Unit Capsule] 1 cap PO 5X/DAY 09/08/19 hydrALAZINE [Apresoline] 25 mg PO TID 09/08/19 Insulin Detemir [Levemir] 15 units SC BID 04/02/20
[2020-04-03 11:08] VITALS: PULSE 95
[2020-04-03] MEDS: Insulin Lispro 100 UNIT/ML INSULN.PEN SC (11:35)
[2020-04-03 11:40] VITALS: BP 136/95; PULSE 80; RESP 16; TEMP 36.6; O2SAT 99
[2020-04-03 11:50] LABS: Bedside Glucose 352 mg/dL (70-110)
--- NOTE | 2020-04-03 16:42 | DS.PCM_ITS ---
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 He was admitted through the ED on 04/01/2020 with a complaint of hyperglycemia. Patient had not taken his insulin the day before admission as he said he had run out at time to going get his new prescription. He went to work and felt very weak and tired with nausea and headache. Blood sugar was checked at work and was very high so he came into the ED where on admission, initial blood sugar was more than 500 with anion gap of 16 and he also had moderate ketones. VBG done showed pH of 7.29. He was hydrated with IV fluids and started on heparin drip in the ED. He was then admitted to the ICU. Of note, patient also had a history of chronic alcohol abuse and had been trying to decrease his alcohol intake on outpatient basis. Gap closed with IV fluid hydration and also blood sugars trended down. He was switched to his regular insulin lantus dose. A1C done was 12.8. Of note, patient also had mildly elevated troponins which peaked at 0.229. He had had no chest pain throughout admission and 2D echo was done which showed EF of 70% with severe left ventricular hypertrophy and left ventricular systolic function which was normal with impaired relaxation of the left ventricle and no regional motion abnormalities noted. Elevation in troponin was therefore thought to be likely due to demand ischemia and patient remained stable. He was discharged home on 04/03/2020 and is follow-up with his primary care doctor within 1 to 2 weeks. Seen and examined prior to discharge. He had no complaints. Review of systems otherwise negative. Labs and vitals reviewed. Home Medication reviewed and reconciled. O/E: Vital Signs Temp Pulse Resp BP Pulse Ox 97.9 F 80 16 136/95 H 99 04/03/20 11:40 04/03/20 11:40 04/03/20 11:40 04/03/20 11:40 04/03/20 11:40 [] General: Alert, Oriented x3, Cooperative HEENT: Atraumatic, PERRLA, EOMI, Normocephalic Oral: Dry Mucosa Neck: Supple, No JVD, Negative Carotid Bruits Lungs: Clear to auscultation, Normal air movement Cardiovascular: Regular rate, Normal S1, Normal S2, - - Mechanical aortic valve click as well as grade 3 systolic murmur over the aortic and pulmonary regions. Abdomen: Bowel Sounds Present, Soft, Non Tender Extremities: No edema, Capillary Refill Less than 3 Seconds Skin: No rashes, No breakdown Musculoskeletal: No Tenderness to Palpation of Joints or Extremities Neurological: Cranial nerves II-XII grossly intact Psych/Mental Status: Normal Affect, Appropriate, Alert and oriented to time, place, person, mood and affect Plan is for discharge home today. He was counseled about the importance of being compliant with his home meds and insulin, and quitting alcohol use. Patient Problems: Active and Suspected Problems (Last Reviewed 06/13/18 @ 08:39 by Марина Ku) DKA (diabetic ketoacidosis) (Acute) - Physical Exam Vitals/I&O's: Vital Signs Temp Pulse Resp BP Pulse Ox 97.9 F 80 16 136/95 H 99 04/03/20 11:40 04/03/20 11:40 04/03/20 11:40 04/03/20 11:40 04/03/20 11:40 Oxygen Delivery Method Room Air Weight: 178 lb 9.191 oz Body Mass Index (BMI) 24.7 Finger Stick Blood Glucose 196 Intake and Output for Last 24 Hours 04/01/20 04/02/20 04/03/20 23:59 23:59 23:59 Intake Total 4593.26 / 5073.26 1400 / 1400 Balance 4593.26 / 5073.26 1400 / 1400 Laboratory Results 04/02/20 21:52: POC Glucose 378 H 04/03/20 05:44: WBC 5.3, RBC 3.64 L, Hgb 12.0 L, Hct 35.2 L, MCV 96.7 H, MCH 33.0 H, MCHC 34.1, RDW Std Deviation 45.1 H, RDW Coeff of Kalpana 12.8, Plt Count 174, MPV 10.9, Immature Gran % (Auto) 0.600, Neut % (Auto) 67.9, Lymph % (Auto) 18.4 L, [place] % (Auto) 9.0, Eos % (Auto) 2.6, Baso % (Auto) 1.5 H, Absolute Neuts (auto) 3.6, Absolute Lymphs (auto) 0.98, Nucleated RBC % 0 04/03/20 05:44: Sodium 140, Potassium 3.7, Chloride 110 H, Carbon Dioxide 23.0, Anion Gap 7, BUN 11, Creatinine 0.67 L, Estim Creat Clear Calc 129.56, Est GFR (MDRD) Af Amer 158, Est GFR (MDRD) Non-Af 131, BUN/Creatinine Ratio 16.5, Glucose 133 H, Calcium 8.0 L 04/03/20 06:29: POC Glucose 130 H 04/03/20 11:34: POC Glucose 352 H Discharge Diet: Low fat/ Low Cholesterol Discharge Activity: Return to Normal Activity Weight Bearing Status: Weight bearing as tolerated Call your doctor if you observe: Fever of 101 or Higher, Shortness of breath, Swelling in the ankles Home Medications: Medications to take at Discharge metoprolol succinate 100 mg tablet,extended release 24 hr 100 mg PO DAILY 06/10/18 omeprazole 40 mg capsule,delayed release 40 mg PO DAILY 06/10/18 Hydrochlorothiazide 12.5 mg PO DAILY 08/24/18 Ramipril 10 mg PO DAILY 08/24/18 Atorvastatin Calcium [Lipitor] 40 mg PO QHS #30 tab 08/27/18 metFORMIN HCl [Glucophage] 500 mg PO DAILY 01/21/19 Amlodipine [Norvasc] 5 mg PO DAILY 09/08/19 Lipase/Protease/Amylase [Zenpep Dr 5,000 Unit Capsule] 1 cap PO 5X/DAY 09/08/19 hydrALAZINE [Apresoline] 25 mg PO TID 09/08/19 Insulin Detemir [Levemir] 15 units SC BID 04/02/20 Other Amb Orders: Glucometer Location: None Selected Primary Care Physician: Dk Pathak DERIVATIVES TRADER, DERIVATIVES TRADER-C [Primary Care Provider] - Please follow up with your Primary Care Physician in: 1-2 WEEKS Patient Instructions: A1C Disposition: Home Minutes spent on discharge:: 45 Patient Condition:: Stable Medical Necessity - Tobacco Use Smoking Status: Current every day smoker Meaningful Use Info Meaningful Use Diagnoses (Choose all that apply): None applicable Inpatient E&M: [id number] [facility] Hosp
== END 2020-04-03 13:34 | disposition home or self-care (01) | DRG 638 ==
LOC: ED 02:45 → ICU 07:18 → PCU 04-03 08:19 → ICU 04-03 10:16
PROVIDERS: Admitting Provider Family Medicine; Emergency Provider Emergency Medicine; PCP Nurse Practitioner Family; Visit Provider Student in an Organized Health Care Education/Training Program
DX: E11.10 Type 2 diabetes mellitus with ketoacidosis without coma (principal); K86.1 Other chronic pancreatitis; T38.3X6A Underdosing of insulin and oral hypoglycemic [antidiabetic] drugs, initial encounter; E78.00 Pure hypercholesterolemia, unspecified; I49.5 Sick sinus syndrome; I10 Essential (primary) hypertension; R09.89 Other specified symptoms and signs involving the circulatory and respiratory systems; Z86.79 Personal history of other diseases of the circulatory system; Z95.0 Presence of cardiac pacemaker; Z95.3 Presence of xenogenic heart valve; Z79.4 Long term (current) use of insulin; Z79.899 Other long term (current) drug therapy; F17.200 Nicotine dependence, unspecified, uncomplicated; F10.20 Alcohol dependence, uncomplicated
CPT/HCPCS: 80048; 82009; 82803; 82962; 83036; 84484; 85025; 93306; 99285; 99406; J7030; Q9957; A4216; J7799

== ENCOUNTER 2020-05-09 19:14 | Inpatient (IN) | payer OTHER, SELFPAY ==
[2020-04-02 03:37] VITALS: BMI 24.7
[2020-05-09] VITALS (8 sets, daily range): BP systolic 87–134; BP diastolic 50–106; PULSE 60–84; RESP 15–19; TEMP 36.4–36.8; O2SAT 95–99; BMI 24.7; BMI 24.4
--- NOTE | 2020-05-09 19:37 | ED.VISSUMM ---
- ER Visit Summary Date of Service: 05/09/20 Chief Complaint: [Alcohol intoxication] History of Present Illness: The patient is a 59 M [ presents to the emergency department from home stating that he drank more today than he usually does and did not think he could go to work tonight. Patient states that he was not feeling well so he felt that he needed to get some help. Patient has history of open heart surgery x3 at replace his aortic valve. Patient currently has a bovine valve and is not anticoagulated. He denies any illicit drug use. Patient is a smoker. He denies chest pain or shortness of breath. Patient states that he normally drinks 1 tall boys per day but today he got into some vodka and drink quite a bit.] Physical Examination: [HEENT-PERRLA, EOMI. Cranial nerves II through XII grossly intact. TMs clear. Mucous membranes moist. No adenopathy. Cardiovascular-regular rate and rhythm without murmur or ectopy Lungs-clear to auscultation, chest wall stable without crepitus or subcu emphysema Abdomen-normoactive bowel sounds, soft, nontender, no rebound or rigidity, no peritoneal signs. Extremities-intact ?4, normal range of motion, normal pulses, atraumatic] Test Results: [CBC with differential obtained showing a 7.6, hemoglobin 14.5, hematocrit 45, platelet 226. Chemistries unremarkable. Alcohol was 229 toxicology screen was negative.] Emergency Department Course and Treatment: [IV line established. Patient received nicotine patch 21 mcg p.o. patient received Tylenol 650 mg p.o. for complaint of a headache.] Treatment Plan: [Admit] Disposition: [Admit] Impression: [Alcohol intoxication Request for detox from alcohol] This note was generated with [employer] dictation software. It may contain incorrect words, spelling, and punctuation that were not noted in review of the chart prior to signing ED Disposition - Plan for ED Patient: Referrals: Dk Pathak WORKFORCE CONSULTANT, WORKFORCE CONSULTANT-C [Primary Care Provider] -
[2020-05-09 19:55] LABS: Absolute Neutrophil Count 4.1 X10^3/uL (2.0-7.7); Basophil# 0.09 X10^3/uL; Basophil% 1.2 % (0-1); Eosinophil# 0.66 X10^3/uL; Eosinophils% 8.6 % (0-5); Hematocrit 44.8 % (40-54); Hemoglobin 14.5 g/dL (13.0-16.5); Lymphocyte % 27.5 % (19-41); Mean Corp Hgb Conc 32.4 g/dL (32-36); Mean Corpuscular Hgb 32.4 pg (27.0-32.0); Mean Corpuscular Volume 100.2 fL (80-94); Mean Platelet Vol. 10.9 fl (6.2-12.0); Monocyte# 0.67 X10^3/uL; Monocyte% 8.8 % (0-10); NRBC Flagged by Analyzer 0 % (0-5); Neutrophil # 4.11 X10^3/uL (2.7-7.7); Neutrophil % 53.8 % (47-70); Platelet Count 226 K/mm3 (150-450); RBC Distribution Width CV 13.3 % (11.6-14.6); RBC Distribution Width SD 49.7 fl (35.1-43.9); Red Blood Count 4.47 M/mm3 (4.6-6.2); White Blood Count 7.6 K/mm3 (4.4-11.0)
[2020-05-09] MEDS: 0.9% Normal Saline 1,000 ML 150 ML IV (20:08)
[2020-05-09] MEDS: Acetaminophen 325 MG Tablet 650 MG PO (20:16)
[2020-05-09 20:29] LABS: ALB/GLOB Ratio 0.9 RATIO (0.9-2.4); AST(SGOT) 47 U/L (15-37); Alanine Aminotransfer ALT/SGPT 32 U/L (16-61); Albumin, Serum 3.4 g/dL (3.2-5.0); Alkaline Phosphatase 105 U/L (45-117); Anion Gap 3 (5-15); BUN 6 mg/dL (7-18); BUN/Creat Ratio 5.8 RATIO (10-20); Calcium,Total 8.8 mg/dL (8.5-10.1); Chloride 107 mmol/L (98-107); Creatinine, Serum 1.03 mg/dL (0.70-1.30); EST Glomerular Filtration Rate 79 mL/min (>60); Est Glom Filt Rate - Afr Amer 96 mL/min (>60); Estimated Creatinine Clearance 84.28 ml/min; Globulin 3.7 g/dL (2.2-4.2); Glucose 63 mg/dL (74-106); Potassium 3.8 mmol/L (3.5-5.1); Protein, Total 7.1 g/dL (6.4-8.2); Sodium Level 141 mmol/L (136-145)
[2020-05-09 20:31] LABS: Amphetamine Urine VISTA NEGATIVE (<1000 ng/mL); Barbiturate Urine VISTA NEGATIVE (< 200 ng/mL); Benzodiazepine Urine VISTA NEGATIVE (< 200 ng/mL); Cocaine Urine VISTA NEGATIVE (< 300 ng/mL); Ecstacy Urine VISTA NEGATIVE (< 500 ng/mL); Methadone Urine VISTA NEGATIVE (< 300 ng/mL); PCP Urine VISTA NEGATIVE (< 25 ng/mL); THC Urine VISTA NEGATIVE (< 50 ng/mL); Vista UDS pH Range 6
--- NOTE | 2020-05-09 20:56 | PCM.HP.STD ---
Problem List (1) Alcoholism Status: Acute (2) Stroke Status: Chronic (3) History of aortic aneurysm repair Status: Resolved Comment: 2005 @ [facility]; and 2016 @ [facility] (4) Pure hypercholesterolemia Status: Chronic (5) Left carotid bruit Status: Chronic (6) History of aortic valve replacement with bioprosthetic valve Status: Resolved Comment: aortic valve replacement with mechanical valve 01/22/15; redo aortic valve replacement with a Bovine Valve [facility] 2016 (7) Cardiac pacemaker in situ Status: Chronic (8) Essential hypertension Status: Chronic (9) Alcoholism in remission Status: Chronic (10) Sick sinus syndrome Status: Chronic (11) Diabetes mellitus, type II Status: Chronic Qualifiers: (12) Tobacco use Status: Chronic History of Present Illness Date of Admission: 05/09/20 Chief Complaint: Alcohol intoxication with desire to detoxify The patient is a 59 year old M with a significant history of alcoholism; bovine aortic valve replacement; and tobacco abuse who presents emergency department with Alcohol intoxication with desire to detoxify. Patient has been drinking for about 20 years. Last time he was sober was last year. Typically he drinks about 1 tall boy of beer per day. However on day of presentation he drank a small bottle of vodka and thought that he could not go to work. He called the emergency squad who brought him to the emergency department. Patient was admitted on 04/02/2020 and discharged on 04/03/2020 with DKA. 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 Slim Bautista MD) SVT (supraventricular tachycardia) (Inactive) I47.1 Pure hypercholesterolemia (Chronic) E78.00 Left carotid bruit (Chronic) R09.89 Cardiac pacemaker in situ (Chronic) Onset Date: ~06/2016 Z95.0 Essential hypertension (Chronic) I10 Shortness of breath (Inactive) R06.02 Pleuritic chest pain (Inactive) R07.81 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) Sick sinus syndrome (Chronic) I49.5 Diabetes mellitus, type II (Chronic) E11.9 Tobacco use (Chronic) Z72.0 Ascending aortic dissection Onset Date: ~2005 I71.01 Adrenal nodule E27.9 Left Hiatal hernia K44.9 Aortic aneurysm (Inactive) I71.9 HTN (hypertension) (Inactive) I10 Pacemaker (Inactive) Z95.0 Allergies No Known Allergies Allergy (Verified 05/09/20 19:18) Home Medications: Ambulatory Orders Medication Instructions Recorded metoprolol succinate 100 mg 100 mg PO DAILY 06/10/18 tablet,extended release 24 hr omeprazole 40 mg capsule,delayed 40 mg PO DAILY 06/10/18 release Hydrochlorothiazide 12.5 mg PO DAILY 08/24/18 Ramipril 10 mg PO DAILY 08/24/18 metFORMIN HCl [Glucophage] 500 mg PO DAILY 01/21/19 Amlodipine [Norvasc] 5 mg PO DAILY 09/08/19 Lipase/Protease/Amylase [Zenpep Dr 1 cap PO 5X/DAY 09/08/19 5,000 Unit Capsule] hydrALAZINE [Apresoline] 25 mg PO TID 09/08/19 Insulin Detemir [Levemir] 15 units SC BID 04/02/20 Atorvastatin Calcium [Lipitor] 40 mg PO DAILY 05/09/20 Surgical History: Surgical History (Last Reviewed 05/10/20 @ 01:[address] Slim Bautista MD) History of aortic aneurysm repair (Resolved) Onset Date: ~2017 Z98.890, Z86.79 2006 @ [facility]; and 2017 @ [facility] History of aortic valve replacement with bioprosthetic valve (Resolved) Onset Date: ~2017 Z95.3 aortic valve replacement with mechanical valve 01/22/15; redo aortic valve replacement with a Bovine Valve [facility] 2017 History of cataract surgery Z98.49 History of hernia repair Z98.890, Z87.19 H/O aortic valve replacement (Inactive) Z95.2 Surgical History: - - Aortic aneurysm repair and aortic valve replacement (bovine) with total 3 separate surgies, most recent 04/2016 [facility], R inguinal hernia repair. Psychiatric History: No pertinent psych hx Smoking Status: Current every day smoker - *Family History Maternal Family History: Family History (Last Reviewed 05/10/20 @ 01:[address] Slim Bautista MD) Father CAD (coronary artery disease) Mother Dementia History Items: Dementia Paternal Family History: Family History (Last Reviewed 05/10/20 @ 01:[address] Slim Bautista MD) Father CAD (coronary artery disease) Mother Dementia History Items: Heart Disease Review of Systems Constitutional: Denies: Chills, Fever, Weight Change HEENT: Denies: Head Aches, Sinus Congestion, Sinus Drainage Cardiovascular: Denies: Chest Pain, Palpitations Respiratory: Denies: Cough, Shortness of breath at rest, Sputum production Gastrointestinal: Denies: Abdominal Pain, Nausea, Vomiting Genitourinary: Denies: Dysuria Musculoskeletal: Denies: Joint Pain, Joint Tenderness Skin: Denies: Rash, Wounds Neurological: Denies: Numbness, Tingling, Focal weakness Psychiatric: Denies: Anxiety, Depression, Homicidal Ideations, Suicidal Ideations Hematologic/ Lymphatic: Denies: Easy Bruising, Easy Bleeding VTE Information - Inpt Only VTE Present on Admission: No VTE Mechan Device Prophylaxis: None VTE Pharm Prophylaxis ordered?: Yes Patient Problems: Active and Suspected Problems (Last Reviewed 05/10/20 @ 01:[address] Slim Bautista MD) Alcoholism (Acute) - Physical Exam Vitals/I&O's: Vital Signs Temp Pulse Resp BP Pulse Ox 98.2 F 84 16 134/106 H 96 05/09/20 19:15 05/09/20 20:31 05/09/20 20:31 05/09/20 20:31 05/09/20 20:31 Oxygen Delivery Method Room Air Weight: 80.3 kg Body Mass Index (BMI) 24.7 Finger Stick Blood Glucose 196 General: Alert, Oriented x3, Cooperative HEENT: Atraumatic, PERRLA, EOMI, Normocephalic Neck: Supple, No JVD, Negative Carotid Bruits Lungs: Clear to auscultation, Normal air movement Cardiovascular: Regular rate, No murmurs Abdomen: Bowel Sounds Present, Soft, Non Tender Extremities: No edema, Capillary Refill Less than 3 Seconds Skin: No rashes, No breakdown Musculoskeletal: No Tenderness to Palpation of Joints or Extremities Neurological: Cranial nerves II-XII grossly intact Psych/Mental Status: Normal Affect, Appropriate Laboratory Results 05/09/20 19:25: WBC 7.6, RBC 4.47 L, Hgb 14.5, Hct 44.8, MCV 100.2 H, MCH 32.4 H, MCHC 32.4, RDW Std Deviation 49.7 H, RDW Coeff of Kalpana 13.3, Plt Count 226, MPV 10.9, Immature Gran % (Auto) 0.100, Neut % (Auto) 53.8, Lymph % (Auto) 27.5, [place] % (Auto) 8.8, Eos % (Auto) 8.6 H, Baso % (Auto) 1.2 H, Absolute Neuts (auto) 4.1, Absolute Lymphs (auto) 2.10, Nucleated RBC % 0 05/09/20 19:25: Sodium 141, Potassium 3.8, Chloride 107, Carbon Dioxide 31.0, Anion Gap 3 L, BUN 6 L, Creatinine 1.03, Estim Creat Clear Calc 84.28, Est GFR (MDRD) Af Amer 96, Est GFR (MDRD) Non-Af 79, BUN/Creatinine Ratio 5.8 L, Glucose 63 L, Calcium 8.8, Total Bilirubin 0.30, AST 47 H, ALT 32, Alkaline Phosphatase 105, Total Protein 7.1, Albumin 3.4, Globulin 3.7, Albumin/Globulin Ratio 0.9 05/09/20 19:25: Ethyl Alcohol 229.0 05/09/20 20:04: Urine Opiates Screen NEGATIVE, Urine Methadone Screen NEGATIVE, Ur Barbiturates Screen NEGATIVE, Ur Phencyclidine Scrn NEGATIVE, Ur Amphetamines Screen NEGATIVE, U Methamphetamin-MDMA NEGATIVE, U Benzodiazepines Scrn NEGATIVE, Urine Cocaine Screen NEGATIVE, U Cannabinoids Screen NEGATIVE, Ur Drug Screen Comment Current Medications Sodium Chloride () 1,000 mls @ 150 mls/hr IV .Q6H40M [facility] Last Admin: 05/09/20 20:08 Dose: 150 mls/hr Documented by: Assessment/Plan All Active Problems (Last Reviewed 05/10/20 @ 01:[address] Slim Bautista MD) Alcoholism (Acute) History of aortic aneurysm repair (Resolved ~2017) History of aortic valve replacement with bioprosthetic valve (Resolved ~2016) The patient is a 59 year old M with a significant history of alcoholism; bovine aortic valve replacement; and tobacco abuse who presents emergency department with Alcohol intoxication with desire to detoxify. Alcohol dependence and desire for detoxification Patient will be started on phenobarbital in am; and other adjunctive medications: Gabapentin as needed; dicyclomine as needed; Vistaril as needed; methocarbamol as needed; clonidine as needed; Imodium as needed; trazodone as needed; Zofran as needed; scheduled thiamine; and schedule folic acid.. Monitor CIWA score Tobacco abuse Counseled Nicotine patch prescribed. Hypotension Resolved at emergency department with IV fluid bolus. Hold home blood pressure medications Trend blood pressures. Hypoglycemia With blood glucose of 63 on BMP and then fingerstick of 31. Discussed emergent protocol to give amp of D50. Repeat blood glucose was 175. Repeat blood glucose in 1 hour and then every 4 hours. Hold home hypoglycemic regimen. Of note on previous admission patient was admitted for DKA. Chronic pancreatitis Pancreatic enzymes continued. DVT prophylaxis Subcutaneous Lovenox ordered Inpatient E&M: 55789 Init Hosp L3
[2020-05-09] MEDS: Dextrose 50%-Water 25 GM/50 ML DISP.SYRIN IV (22:23)
--- NOTE | 2020-05-09 22:26 | ED.RN ---
2149 PT C/O NOT EATING TODAY AND WAS ASKING FOR FOOD,STATED HE THINKS HIS SUGAR IS OFF BECAUSE HE HASN'T ATE,JUICE, SANDWHICH AND COOKIE GIVEN.PT INFORMED BLOOD SUGAR WILL BE TAKEN AFTER HE EATS. PT STARTED EATING.
--- NOTE | 2020-05-09 22:29 | ED.RN ---
2210 PT PUT CALL AVILES ON, SAID HE WAS DONE EATING AND READY FOR HIS BLOOD SUGAR CHECK.
[2020-05-09 22:41] LABS: Bedside Glucose 175 mg/dL (70-110)
[2020-05-09 22:41] LABS: Bedside Glucose 31 mg/dL (70-110)
[2020-05-09 23:25] LABS: Bedside Glucose 190 mg/dL (70-110)
[2020-05-10] VITALS (8 sets, daily range): BP systolic 96–134; BP diastolic 52–81; PULSE 64–85; RESP 16; TEMP 36.6–36.8; O2SAT 93–98
[2020-05-10] MEDS: hydrOXYzine PAM 25 MG Capsule 50 MG PO (02:01)
[2020-05-10 03:15] LABS: Bedside Glucose 286 mg/dL (70-110)
[2020-05-10 06:26] LABS: Bedside Glucose 159 mg/dL (70-110)
[2020-05-10] MEDS: Phenobarbital 32.4 MG Tablet 97.2 MG PO ×5 (06:27→22:11)
[2020-05-10] MEDS: Insulin Lispro 100 UNIT/ML INSULN.PEN SC ×4 (06:28→22:11)
[2020-05-10] MEDS: Pantoprazole Sodium 40 MG Tablet PO (07:34)
[2020-05-10] MEDS: Thiamine Hydrochloride 100 MG Tablet PO (07:34)
[2020-05-10] MEDS: Enoxaparin 40 MG/0.4 ML Syringe SC (07:34)
[2020-05-10] MEDS: Folic Acid 1 MG Tablet PO (07:34)
[2020-05-10] MEDS: Acetaminophen 325 MG Tablet 650 MG PO (07:44)
--- NOTE | 2020-05-10 07:54 | PN_ITS ---
Patient Problems: Active and Suspected Problems (Last Reviewed 05/10/20 @ 01:[address] Slim Bautista MD) Alcoholism (Acute) Reason for Visit: Follow-up on acute alcohol withdrawal. Subjective: Patient was seen and examined. He feels much improved. Denied any new complaints. Objective: Physical exam General: Alert, Oriented x3, Cooperative HEENT: Atraumatic, PERRLA, EOMI, Normocephalic Neck: Supple, No JVD, Negative Carotid Bruits Lungs: Clear to auscultation, Normal air movement Cardiovascular: Regular rate, No murmurs Abdomen: Bowel Sounds Present, Soft, Non Tender Extremities: No edema, Capillary Refill Less than 3 Seconds Skin: No rashes, No breakdown Musculoskeletal: No Tenderness to Palpation of Joints or Extremities Neurological: Cranial nerves II-XII grossly intact Psych/Mental Status: Normal Affect, Appropriate Vitals/I&O's: Vital Signs Temp Pulse Resp BP Pulse Ox 98.0 F 73 16 120/81 H 96 05/10/20 06:20 05/10/20 06:20 05/10/20 06:20 05/10/20 06:20 05/10/20 06:20 Oxygen Delivery Method Room Air Weight: 79.4 kg Body Mass Index (BMI) 24.4 Finger Stick Blood Glucose 175 Intake and Output for Last 24 Hours 05/08/20 05/09/20 05/10/20 23:59 23:59 23:59 Intake Total 527 / 527 775 / 775 Balance 527 / 527 775 / 775 Laboratory Results 05/09/20 19:25: WBC 7.6, RBC 4.47 L, Hgb 14.5, Hct 44.8, MCV 100.2 H, MCH 32.4 H , MCHC 32.4, RDW Std Deviation 49.7 H, RDW Coeff of Kalpana 13.3, Plt Count 226, MPV 10.9, Immature Gran % (Auto) 0.100, Neut % (Auto) 53.8, Lymph % (Auto) 27.5, [place] % (Auto) 8.8, Eos % (Auto) 8.6 H, Baso % (Auto) 1.2 H, Absolute Neuts (auto) 4.1, Absolute Lymphs (auto) 2.10, Nucleated RBC % 0 05/09/20 19:25: Sodium 141, Potassium 3.8, Chloride 107, Carbon Dioxide 31.0, Anion Gap 3 L, BUN 6 L, Creatinine 1.03, Estim Creat Clear Calc 84.28, Est GFR (MDRD) Af Amer 96, Est GFR (MDRD) Non-Af 79, BUN/Creatinine Ratio 5.8 L, Glucose 63 L, Calcium 8.8, Total Bilirubin 0.30, AST 47 H, ALT 32, Alkaline Phosphatase 105, Total Protein 7.1, Albumin 3.4, Globulin 3.7, Albumin/Globulin Ratio 0.9 05/09/20 19:25: Ethyl Alcohol 229.0 05/09/20 20:04: Urine Opiates Screen NEGATIVE, Urine Methadone Screen NEGATIVE, Ur Barbiturates Screen NEGATIVE, Ur Phencyclidine Scrn NEGATIVE, Ur Amphetamines Screen NEGATIVE, U Methamphetamin-MDMA NEGATIVE, U Benzodiazepines Scrn NEGATIVE, Urine Cocaine Screen NEGATIVE, U Cannabinoids Screen NEGATIVE, Ur Drug Screen Comment 05/09/20 22:16: POC Glucose 31 L* 05/09/20 22:36: POC Glucose 175 H 05/09/20 23:14: POC Glucose 190 H 05/10/20 03:07: POC Glucose 286 H 05/10/20 06:21: POC Glucose 159 H Current Medications Acetaminophen (Acetaminophen 325 Mg Tablet) 650 mg PO Q6H PRN PRN PRN Reason: Pain Score 1-10/Temp > 100.7 F Last Admin: 05/10/20 07:44 Dose: 650 mg Documented by: Atorvastatin Calcium (Atorvastatin Calcium 40 Mg Tablet) 40 mg PO DAILY@2200 [facility] Dextrose (Dextrose 50%-Water 25 Gm/50 Ml Disp.Syrin) 0 gm IV X1 PRN; Protocol PRN Reason: Hypoglycemia Dicyclomine HCl (Dicyclomine 10 Mg Capsule) 20 mg PO Q6H PRN PRN PRN Reason: abdominal discomfort Enoxaparin Sodium (Enoxaparin 40 Mg/0.4 Ml Syringe) 40 mg SC DAILY [facility] Last Admin: 05/10/20 07:34 Dose: 40 mg Documented by: Folic Acid (Folic Acid 1 Mg Tablet) 1 mg PO DAILY@0800 [facility] Last Admin: 05/10/20 07:34 Dose: 1 mg Documented by: Gabapentin (Gabapentin 300 Mg Capsule) 300 mg PO Q8H PRN PRN PRN Reason: moderate to severe anxiety Glucagon (Glucagon 1 Mg/Ml Syringe) 1 mg IM .X1 PRN PRN Reason: Hypoglycemia Hydroxyzine Pamoate (Hydroxyzine Lakeisha 25 Mg Capsule) 50 mg PO Q4H PRN PRN PRN Reason: mild anxiety Last Admin: 05/10/20 02:01 Dose: 50 mg Documented by: Insulin Human Lispro (Insulin Lispro 100 Unit/Ml Insuln.Pen) 0 unit SC [facility]; Protocol Last Admin: 05/10/20 06:28 Dose: 1 units Documented by: Loperamide HCl (Loperamide 2 Mg Capsule) 2 mg PO Q4H PRN PRN PRN Reason: LOOSE STOOLS Nicotine (Nicotine 21 Mg Patch) 21 mg TD DAILY [facility] Last Admin: 05/10/20 07:35 Dose: 21 mg Documented by: Ondansetron HCl (Ondansetron 8 Mg Tablet) 8 mg PO Q8H PRN PRN PRN Reason: NAUSEA Pancrelipase (Creon 6,[address] Capsule) 1 capsule PO 5X/DAY [facility] Last Admin: 05/10/20 06:28 Dose: 1 capsule Documented by: Pantoprazole Sodium (Pantoprazole Sodium 40 Mg Tablet) 40 mg PO DAILY [facility] Last Admin: 05/10/20 07:34 Dose: 40 mg Documented by: Phenobarbital (Phenobarbital 32.4 Mg Tablet) 97.2 mg PO Q4H [facility]; Taper Stop: 05/14/20 13:59 Last Admin: 05/10/20 06:27 Dose: 97.2 mg Documented by: Sodium Chloride (0.9% Saline Lock 10 Ml Syringe) 10 - 40 ml IV UD PRN PRN Reason: SALINE FLUSH Thiamine HCl (Thiamine Hydrochloride 100 Mg Tablet) [facility] Last Admin: 05/10/20 07:34 Dose: 100 mg Documented by: Trazodone HCl (Trazodone 100 Mg Tablet) 100 mg PO QHS PRN PRN Reason: INSOMNIA STROKE Vital Signs/Narrative: Vital Signs Temp Pulse Resp BP Pulse Ox 05/10/20 06:20 98.0 F 73 16 120/81 H 96 Medical Necessity - Tobacco Use Smoking Status: Current every day smoker Assessment/Plan All Active Problems (Last Reviewed 05/10/20 @ 01:[address] Slim Bautista MD) Alcoholism (Acute) History of aortic aneurysm repair (Resolved ~2017) History of aortic valve replacement with bioprosthetic valve (Resolved ~2017) 1. Episodes of hypotension, history of hypertension on home amlodipine, hydralazine, hydrochlorothiazide, metoprolol resolved with IV fluids. BP remains fairly controlled. Continue to monitor off antihypertensives We will resume tomorrow when blood pressures are better 2. Episodes of hypoglycemia, history of type II DM, insulin independent Will resume on home Levemir 15 units twice daily, continue to hold Metformin, continue to monitor blood glucose with insulin sliding scale 3. Acute alcohol withdrawal, improving, continue on the buprenorphine withdrawal protocol, continue to monitor CIWA 4. Nicotine dependence, advised to quit, on replacement 5. Chronic pancreatitis, continue on Pancrease 6. DVT PPx- Lovenox SC Inpatient E&M: 87001 Subs Hosp L2
[2020-05-10 11:25] LABS: Bedside Glucose 204 mg/dL (70-110)
--- NOTE | 2020-05-10 15:29 | ADDICTION ---
This technical document writer met with PT to complete ASAM, MSE, AUDIT assessments and to plan for d/c. All assessments completed, faxed to [facility] and placed in PT's chart. [facility] for [facility] and outpatient groups. No transportation needs noted. PT reported he drinks 1 beer daily but this time he drank a whole bottle of vodka and then needed help. Per PT report, this only happens every 2-3 months.
[2020-05-10 15:50] LABS: Bedside Glucose 405 mg/dL (70-110)
[2020-05-10] MEDS: Gabapentin 300 MG Capsule PO (18:08)
[2020-05-10] MEDS: Atorvastatin Calcium 40 MG Tablet PO (22:11)
[2020-05-10 22:30] LABS: Bedside Glucose 221 mg/dL (70-110)
[2020-05-11 02:37] VITALS: BP 125/72; PULSE 59; RESP 16; TEMP 36.2; O2SAT 97
[2020-05-11] MEDS: Phenobarbital 32.4 MG Tablet 97.2 MG PO ×2 (02:40→06:34)
[2020-05-11 06:51] LABS: Bedside Glucose 59 mg/dL (70-110)
[2020-05-11 07:38] VITALS: BP 149/92; PULSE 94; RESP 16; TEMP 36.6; O2SAT 98
[2020-05-11 07:41] LABS: Bedside Glucose 139 mg/dL (70-110)
[2020-05-11] MEDS: Thiamine Hydrochloride 100 MG Tablet PO (07:50)
[2020-05-11] MEDS: Folic Acid 1 MG Tablet PO (07:50)
--- NOTE | 2020-05-11 08:42 | PCM.PN.HOSP ---
Patient Problems: Active and Suspected Problems (Last Reviewed 05/10/20 @ 01:[address] Slim Bautista MD) Alcoholism (Acute) Vitals/I&O's: Vital Signs Temp Pulse Resp BP Pulse Ox 97.8 F 94 16 149/92 H 98 05/11/20 07:38 05/11/20 07:38 05/11/20 07:38 05/11/20 07:38 05/11/20 07:38 Oxygen Delivery Method Room Air Weight: 79.4 kg Body Mass Index (BMI) 24.4 Finger Stick Blood Glucose 175 Intake and Output for Last 24 Hours 05/09/20 05/10/20 05/11/20 23:59 23:59 23:59 Intake Total 527 / 527 775 / 1175 600 / 600 Balance 527 / 527 775 / 1175 600 / 600 Laboratory Results 05/10/20 11:16: POC Glucose 204 H 05/10/20 15:38: POC Glucose 405 H 05/10/20 22:09: POC Glucose 221 H 05/11/20 06:32: POC Glucose 59 L 05/11/20 07:34: POC Glucose 139 H Current Medications Acetaminophen (Acetaminophen 325 Mg Tablet) 650 mg PO Q6H PRN PRN PRN Reason: Pain Score 1-10/Temp > 100.7 F Last Admin: 05/10/20 07:44 Dose: 650 mg Documented by: Atorvastatin Calcium (Atorvastatin Calcium 40 Mg Tablet) 40 mg PO DAILY@2200 [facility] Last Admin: 05/10/20 22:11 Dose: 40 mg Documented by: Dextrose (Dextrose 50%-Water 25 Gm/50 Ml Disp.Syrin) 0 gm IV X1 PRN; Protocol PRN Reason: Hypoglycemia Dicyclomine HCl (Dicyclomine 10 Mg Capsule) 20 mg PO Q6H PRN PRN PRN Reason: abdominal discomfort Enoxaparin Sodium (Enoxaparin 40 Mg/0.4 Ml Syringe) 40 mg SC DAILY [facility] Last Admin: 05/10/20 07:34 Dose: 40 mg Documented by: Folic Acid (Folic Acid 1 Mg Tablet) 1 mg PO DAILY@0800 [facility] Last Admin: 05/11/20 07:50 Dose: 1 mg Documented by: Gabapentin (Gabapentin 300 Mg Capsule) 300 mg PO Q8H PRN PRN PRN Reason: moderate to severe anxiety Last Admin: 05/10/20 18:08 Dose: 300 mg Documented by: Glucagon (Glucagon 1 Mg/Ml Syringe) 1 mg IM .X1 PRN PRN Reason: Hypoglycemia Hydroxyzine Pamoate (Hydroxyzine Lakeisha 25 Mg Capsule) 50 mg PO Q4H PRN PRN PRN Reason: mild anxiety Last Admin: 05/10/20 02:01 Dose: 50 mg Documented by: Insulin Human Lispro (Insulin Lispro 100 Unit/Ml Insuln.Pen) 0 unit SC [facility]; Protocol Last Admin: 05/11/20 06:33 Dose: Not Given Documented by: Loperamide HCl (Loperamide 2 Mg Capsule) 2 mg PO Q4H PRN PRN PRN Reason: LOOSE STOOLS Nicotine (Nicotine 21 Mg Patch) 21 mg TD DAILY [facility] Last Admin: 05/10/20 07:35 Dose: 21 mg Documented by: Ondansetron HCl (Ondansetron 8 Mg Tablet) 8 mg PO Q8H PRN PRN PRN Reason: NAUSEA Pancrelipase (Creon 6,[address] Capsule) 1 capsule PO 5X/DAY [facility] Last Admin: 05/11/20 06:34 Dose: 1 capsule Documented by: Pantoprazole Sodium (Pantoprazole Sodium 40 Mg Tablet) 40 mg PO DAILY [facility] Last Admin: 05/10/20 07:34 Dose: 40 mg Documented by: Phenobarbital (Phenobarbital 32.4 Mg Tablet) 97.2 mg PO Q4H [facility]; Taper Stop: 05/14/20 13:59 Last Admin: 05/11/20 06:34 Dose: 97.2 mg Documented by: Sodium Chloride (0.9% Saline Lock 10 Ml Syringe) 10 - 40 ml IV UD PRN PRN Reason: SALINE FLUSH Thiamine HCl ([facility] Hydrochloride 100 Mg Tablet) [facility] Last Admin: 05/11/20 07:50 Dose: 100 mg Documented by: Trazodone HCl (Trazodone 100 Mg Tablet) 100 mg PO QHS PRN PRN Reason: INSOMNIA STROKE Vital Signs/Narrative: Vital Signs Temp Pulse Resp BP Pulse Ox 05/11/20 07:38 97.8 F 94 16 149/92 H 98 Medical Necessity - Tobacco Use Smoking Status: Current every day smoker Assessment/Plan All Active Problems (Last Reviewed 05/10/20 @ 01:[address] Slim Bautista MD) Alcoholism (Acute) History of aortic aneurysm repair (Resolved ~2017) History of aortic valve replacement with bioprosthetic valve (Resolved ~2016)
[2020-05-11 09:23] LABS: AST(SGOT) 29 U/L (15-37); Alanine Aminotransfer ALT/SGPT 27 U/L (16-61); Albumin, Serum 3.1 g/dL (3.2-5.0); Alkaline Phosphatase 93 U/L (45-117); Anion Gap 3 (5-15); BUN 12 mg/dL (7-18); Calcium,Total 8.1 mg/dL (8.5-10.1); Chloride 104 mmol/L (98-107); Creatinine, Serum 1.09 mg/dL (0.70-1.30); EST Glomerular Filtration Rate 74 mL/min (>60); Est Glom Filt Rate - Afr Amer 89 mL/min (>60); Estimated Creatinine Clearance 79.64 ml/min; Glucose 192 mg/dL (74-106); Potassium 4.1 mmol/L (3.5-5.1); Protein, Total 6.1 g/dL (6.4-8.2); Sodium Level 137 mmol/L (136-145)
[2020-05-11 09:31] LABS: Hemoglobin A1c 11.2 % (3.8-5.6)
[2020-05-11] MEDS: Pantoprazole Sodium 40 MG Tablet PO (09:57)
[2020-05-11 10:41] VITALS: O2SAT 98
--- NOTE | 2020-05-11 11:05 | PCM.DC ---
- Discharge Diagnoses Current Active Problems: Current Active and Chronic Problems Stroke (Chronic) Alcoholism (Acute) Pure hypercholesterolemia (Chronic) Left carotid bruit (Chronic) Cardiac pacemaker in situ (Chronic ~06/2016) Essential hypertension (Chronic) 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) Sick sinus syndrome (Chronic) Diabetes mellitus, type II (Chronic) Tobacco use (Chronic) Reason(s) for Visit for Discharge Instructions: Acute alcohol withdrawal You will use the following diet at home:: Calorie/Carbohydrate Controlled (specify 1200, 1400, etc), Cardiac Your food should be the consistency of: Regular Your liquids should be the consistency of: Regular/Thin Discharge Activity: Return to Normal Activity Additional Instructions: Take note of changes to your medications. Check your blood glucose 3 times a day and keep a log of it. Follow-up with your primary care doctor within 1 week to have your blood sugars adjusted. Your blood pressure medications were held because of low blood pressure. He has been resume on a low-dose blood pressure medication. Measure your blood pressure every day and follow-up with your primary care doctor within 1 week. You are strongly advised to quit drinking alcohol. Follow-up with your outpatient counseling and also with 180. Allergies/Adverse Reactions: Allergies No Known Allergies Allergy (Verified 05/09/20 19:18) Medications to take at Discharge omeprazole 40 mg capsule,delayed release 40 mg PO DAILY 06/10/18 metFORMIN HCl [Glucophage] 500 mg PO DAILY 01/21/19 Lipase/Protease/Amylase [Zenpep Dr 5,000 Unit Capsule] 1 cap PO 5X/DAY 09/08/19 Atorvastatin Calcium [Lipitor] 40 mg PO DAILY 05/09/20 Insulin Glargine [Lantus SoloStar Pen] 10 units SC BID #1 pen 05/11/20 Metoprolol Succinate 25 mg PO DAILY 30 Days #30 tab.er.24h 05/11/20 Thiamine Hydrochloride [Vitamin B1] 100 mg PO DAILYCM 30 Days #30 tablet 05/11/20 The following prescriptions were given: Insulin Glargine [Lantus SoloStar Pen] 10 units SC BID #1 pen Transmission Status: Pending to [id number] Metoprolol Succinate 25 mg PO DAILY 30 Days #30 tab.er.24h Transmission Status: Pending to [facility] Thiamine Hydrochloride [Vitamin B1] 100 mg PO DAILYCM 30 Days #30 tablet Transmission Status: Pending to [facility] Primary Care Physician: Dk Pathak [employer], [employer] [Primary Care Provider] - Please follow up with your Primary Care Physician in: within 1 week Test Results: Test results from this visit will be discussed in further detail at your follow-up appointment, if applicable. Proposed Discharge Date: 05/11/20
--- NOTE | 2020-05-11 11:08 | PCM.DC.SUM ---
Discharge Date and Diagnosis - Problem List Patient Problems: Active and Suspected Problems (Last Reviewed 05/10/20 @ 01:[address] Slim Bautista MD) Alcoholism (Acute) Date of Admission: 05/09/20 Date of Discharge: 05/11/20 - Primary Discharge Diagnosis Acute Problems: Active Problems (Last Reviewed 05/10/20 @ 01:[address] Slim Bautista MD) Acute alcohol withdrawal Hypotension Hypoglycemia Nicotine dependence - Secondary Discharge Diagnosis Chronic Problems: Chronic Problems Stroke (Chronic) Pure hypercholesterolemia (Chronic) Left carotid bruit (Chronic) Cardiac pacemaker in situ (Chronic ~06/2016) Essential hypertension (Chronic) 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) Sick sinus syndrome (Chronic) Diabetes mellitus, type II (Chronic) Tobacco use (Chronic) Hospital Course and Treatment Operations: None Procedures: None Summary of Care Provided: The patient is a 59 year old M with past medical history of hypertension, type II DM, chronic alcohol use disorder, who presents with desire for medical stabilization from alcohol. Patient admits to drinking for more than 20 years. He usually drinks about 1 to 2 bottles of beer every day but recently drank 1 small bottle of vodka and realized that he could not go to work. He was brought to the emergency department. His work-up showed hypotension that resolved with IV fluids. He was also found to be hypoglycemic. His home blood pressure medications were held. His insulin was also held. Patient was held of his antihypertensives throughout his hospital stay. He was resumed on metoprolol 25 mg daily at discharge. He was asked to keep a log of his blood pressure readings and also follow-up with his primary care doctor within a week with a log of the readings. His Lantus insulin was decreased to 10 units twice daily. His HbA1c in this admission is 11.8. Patient has a recent history of admission for DKA. He was managed on the phenobarbital withdrawal protocol. He was seen by addiction social work and he will follow-up with 180 in the outpatient. Patient Problems: Active and Suspected Problems (Last Reviewed 05/10/20 @ 01:[address] Slim Bautista MD) Alcoholism (Acute) Subjective: On the day of discharge, patient was seen and examined. He denied any new complains, His BPs are better. His blood sugars are fairly controlled. Objective: Physical exam General: Alert, Oriented x3, Cooperative HEENT: Atraumatic, PERRLA, EOMI, Normocephalic Neck: Supple, No JVD, Negative Carotid Bruits Lungs: Clear to auscultation, Normal air movement Cardiovascular: Regular rate, No murmurs Abdomen: Bowel Sounds Present, Soft, Non Tender Extremities: No edema, Capillary Refill Less than 3 Seconds Skin: No rashes, No breakdown Musculoskeletal: No Tenderness to Palpation of Joints or Extremities Neurological: Cranial nerves II-XII grossly intact Psych/Mental Status: Normal Affect, Appropriate - Physical Exam Vitals/I&O's: Vital Signs Temp Pulse Resp BP Pulse Ox 97.8 F 94 16 149/92 H 98 05/11/20 07:38 05/11/20 07:38 05/11/20 07:38 05/11/20 07:38 05/11/20 10:41 Oxygen Delivery Method Room Air Weight: 79.4 kg Body Mass Index (BMI) 24.4 Finger Stick Blood Glucose 175 Intake and Output for Last 24 Hours 05/09/20 05/10/20 05/11/20 23:59 23:59 23:59 Intake Total 527 / 527 775 / 1175 600 / 600 Balance 527 / 527 775 / 1175 600 / 600 Laboratory Results 05/10/20 11:16: POC Glucose 204 H 05/10/20 15:38: POC Glucose 405 H 05/10/20 22:09: POC Glucose 221 H 05/11/20 06:32: POC Glucose 59 L 05/11/20 07:34: POC Glucose 139 H 05/11/20 08:55: Sodium 137, Potassium 4.1, Chloride 104, Carbon Dioxide 30.0, Anion Gap 3 L, BUN 12, Creatinine 1.09, Estim Creat Clear Calc 79.64, Est GFR (MDRD) Af Amer 89, Est GFR (MDRD) Non-Af 74, BUN/Creatinine Ratio 11.0, Glucose 192 H, Calcium 8.1 L, Total Bilirubin 0.50, AST 29, ALT 27, Alkaline Phosphatase 93, Total Protein 6.1 L, Albumin 3.1 L, Globulin 3.0, Albumin/Globulin Ratio 1.0 05/11/20 08:55: Hemoglobin A1c 11.2 H Current Medications Acetaminophen (Acetaminophen 325 Mg Tablet) 650 mg PO Q6H PRN PRN PRN Reason: Pain Score 1-10/Temp > 100.7 F Last Admin: 05/10/20 07:44 Dose: 650 mg Documented by: Atorvastatin Calcium (Atorvastatin Calcium 40 Mg Tablet) 40 mg PO DAILY@2200 [facility] Last Admin: 05/10/20 22:11 Dose: 40 mg Documented by: Dextrose (Dextrose 50%-Water 25 Gm/50 Ml Disp.Syrin) 0 gm IV X1 PRN; Protocol PRN Reason: Hypoglycemia Dicyclomine HCl (Dicyclomine 10 Mg Capsule) 20 mg PO Q6H PRN PRN PRN Reason: abdominal discomfort Enoxaparin Sodium (Enoxaparin 40 Mg/0.4 Ml Syringe) 40 mg SC DAILY [facility] Last Admin: 05/11/20 09:59 Dose: Not Given Documented by: Folic Acid (Folic Acid 1 Mg Tablet) 1 mg PO DAILY@0800 [facility] Last Admin: 05/11/20 07:50 Dose: 1 mg Documented by: Gabapentin (Gabapentin 300 Mg Capsule) 300 mg PO Q8H PRN PRN PRN Reason: moderate to severe anxiety Last Admin: 05/10/20 18:08 Dose: 300 mg Documented by: Glucagon (Glucagon 1 Mg/Ml Syringe) 1 mg IM .X1 PRN PRN Reason: Hypoglycemia Hydroxyzine Pamoate (Hydroxyzine Lakeisha 25 Mg Capsule) 50 mg PO Q4H PRN PRN PRN Reason: mild anxiety Last Admin: 05/10/20 02:01 Dose: 50 mg Documented by: Insulin Glargine (Insulin Glargine 100 Units/Ml Pen) 10 units SC BID [facility] Insulin Human Lispro (Insulin Lispro 100 Unit/Ml Insuln.Pen) 0 unit SC [facility]; Protocol Last Admin: 05/11/20 06:33 Dose: Not Given Documented by: Loperamide HCl (Loperamide 2 Mg Capsule) 2 mg PO Q4H PRN PRN PRN Reason: LOOSE STOOLS Nicotine (Nicotine 21 Mg Patch) 21 mg TD DAILY [facility] Last Admin: 05/11/20 09:59 Dose: Not Given Documented by: Ondansetron HCl (Ondansetron 8 Mg Tablet) 8 mg PO Q8H PRN PRN PRN Reason: NAUSEA Pancrelipase (Creon 6,[address] Capsule) 1 capsule PO 5X/DAY [facility] Last Admin: 05/11/20 09:56 Dose: 1 capsule Documented by: Pantoprazole Sodium (Pantoprazole Sodium 40 Mg Tablet) 40 mg PO DAILY [facility] Last Admin: 05/11/20 09:57 Dose: 40 mg Documented by: Phenobarbital (Phenobarbital 32.4 Mg Tablet) 97.2 mg PO Q4H [facility]; Taper Stop: 05/14/20 13:59 Last Admin: 05/11/20 09:59 Dose: Not Given Documented by: Sodium Chloride (0.9% Saline Lock 10 Ml Syringe) 10 - 40 ml IV UD PRN PRN Reason: SALINE FLUSH Thiamine HCl (Thiamine Hydrochloride 100 Mg Tablet) 100 mg PO DAILYCM [facility] Last Admin: 05/11/20 07:50 Dose: 100 mg Documented by: Trazodone HCl (Trazodone 100 Mg Tablet) 100 mg PO QHS PRN PRN Reason: INSOMNIA Discharge Diet: Low fat/ Low Cholesterol, 2000 mg Sodium Diet, Carb Control Diet Discharge Activity: Return to Normal Activity Home Medications: Medications to take at Discharge omeprazole 40 mg capsule,delayed release 40 mg PO DAILY 06/10/18 metFORMIN HCl [Glucophage] 500 mg PO DAILY 01/21/19 Lipase/Protease/Amylase [Zenpep Dr 5,000 Unit Capsule] 1 cap PO 5X/DAY 09/08/19 Atorvastatin Calcium [Lipitor] 40 mg PO DAILY 05/09/20 Insulin Glargine [Lantus SoloStar Pen] 10 units SC BID #1 pen 05/11/20 Metoprolol Succinate 25 mg PO DAILY 30 Days #30 tab.er.24h 05/11/20 Thiamine Hydrochloride [Vitamin B1] 100 mg PO DAILYCM 30 Days #30 tablet 05/11/20 Following Prescriptions Were Given to Patient: Insulin Glargine [Lantus SoloStar Pen] 10 units SC BID #1 pen Transmission Status: Received by [id number] Metoprolol Succinate 25 mg PO DAILY 30 Days #30 tab.er.24h Transmission Status: Received by [id number] Thiamine Hydrochloride [Vitamin B1] 100 mg PO DAILYCM 30 Days #30 tablet Transmission Status: Received by [id number] Primary Care Physician: Dk Pathak CLASSIFICATION INSPECTOR, CLASSIFICATION INSPECTOR-C [Primary Care Provider] - Please follow up with your Primary Care Physician in: within 1 week Disposition: Home Minutes spent on discharge:: 40 Patient Condition:: Stable Medical Necessity - Tobacco Use Smoking Status: Current every day smoker Tobacco Use: Cigarettes Meaningful Use Info Meaningful Use Diagnoses (Choose all that apply): None applicable Inpatient E&M: 89967 Disch Hosp
[2020-05-11] MEDS: Insulin Lispro 100 UNIT/ML INSULN.PEN SC (11:10)
[2020-05-11 11:20] LABS: Bedside Glucose 238 mg/dL (70-110)
== END 2020-05-11 11:40 | disposition home or self-care (01) | DRG 897 ==
LOC: ED 19:53 → MS3 21:14
PROVIDERS: Admitting Provider Hospitalist; Emergency Provider Emergency Medicine; PCP Nurse Practitioner Family; Visit Provider Internal Medicine
DX: F10.229 Alcohol dependence with intoxication, unspecified (principal); K86.1 Other chronic pancreatitis; F10.239 Alcohol dependence with withdrawal, unspecified; E11.649 Type 2 diabetes mellitus with hypoglycemia without coma; E78.00 Pure hypercholesterolemia, unspecified; I10 Essential (primary) hypertension; I95.9 Hypotension, unspecified; I49.5 Sick sinus syndrome; R09.89 Other specified symptoms and signs involving the circulatory and respiratory systems; I25.10 Atherosclerotic heart disease of native coronary artery without angina pectoris; Z86.73 Personal history of transient ischemic attack (TIA), and cerebral infarction without residual deficits; Z79.4 Long term (current) use of insulin; Z79.899 Other long term (current) drug therapy; F17.210 Nicotine dependence, cigarettes, uncomplicated; Z95.0 Presence of cardiac pacemaker; Z95.3 Presence of xenogenic heart valve
CPT/HCPCS: 36415; 80053; 80307; 82077; 82962; 83036; 85025; 99285; 99406; J7030; A4216; J3490

== ENCOUNTER 2021-05-04 13:16 | Observation (INO) | payer OTHER, SELFPAY ==
[2021-05-04] VITALS (10 sets, daily range): BP systolic 124–157; BP diastolic 75–101; PULSE 96–115; RESP 18–20; TEMP 36.4–37.2; O2SAT 93–99; BMI 23.0; BMI 22.3
--- NOTE | 2021-05-04 13:56 | EKG12_ITS ---
Test Reason : Blood Pressure : / mmHG Vent. Rate : 122 BPM Atrial Rate : 122 BPM P-R Int : 150 ms QRS Dur : 126 ms QT Int : 346 ms P-R-T Axes : 042 -31 078 degrees QTc Int : 493 ms Sinus tachycardia Left axis deviation Right bundle branch block Abnormal ECG Confirmed by ZHAO FRANCISCO, KETTY ([id number]), editor sound MAILE BALDWIN ([id number]) on 05/06/2021 10:36:27 AM Referred By: ABHIJEET Confirmed By:KETTY CHURCHILL MD
--- NOTE | 2021-05-04 13:56 | RAD_ITS ---
HISTORY: chest pain EXAMINATION/TECHNIQUE: XR Chest 1 View: Portable upright AP chest x-ray COMPARISON: 09/08/19 FINDINGS: LINES/DEVICES: Stable transvenous pacemaker. LUNGS: No consolidation, edema or effusion. No pneumothorax. MEDIASTINUM AND CARDIOVASCULAR STRUCTURES: Cardiac silhouette not enlarged. Stable surgery from cardiac valve replacement. Central airways and mediastinal contour are unremarkable. BONES AND SOFT TISSUES: No acute bony abnormalities. RAD/Chest 1 View (Portable) IMPRESSION: No radiographic evidence of acute cardiopulmonary disease. at 1531 Reported and signed by: Scott Foreman MD Electronically Signed: Scott Foreman MD at 15:30 EDT ,
[2021-05-04 14:05] LABS: Absolute Lymphocyte Count 0.91 X10^3/uL (0.83-4.51); Absolute Neutrophil Count 8.5 X10^3/uL (2.0-7.7); Basophil# 0.07 X10^3/uL; Basophil% 0.7 % (0-1); Eosinophil# 0.07 X10^3/uL; Eosinophils% 0.7 % (0-5); Hemoglobin 14.1 g/dL (13.0-16.5); Lymphocyte # 0.91 X10^3/ul (0.83-4.51); Lymphocyte % 8.7 % (19-41); Mean Corp Hgb Conc 33.6 g/dL (32-36); Mean Corpuscular Hgb 32.3 pg (27.0-32.0); Mean Corpuscular Volume 96.1 fL (80-94); Mean Platelet Vol. 11.4 fl (6.2-12.0); Monocyte# 0.88 X10^3/uL; Monocyte% 8.4 % (0-10); NRBC Flagged by Analyzer 0 % (0-5); Neutrophil # 8.51 X10^3/uL (2.7-7.7); Neutrophil % 81.1 % (47-70); Platelet Count 240 K/mm3 (150-450); RBC Distribution Width SD 49.2 fl (35.1-43.9); Red Blood Count 4.37 M/mm3 (4.6-6.2); White Blood Count 10.5 K/mm3 (4.4-11.0)
[2021-05-04 14:21] LABS: Anion Gap 7 (5-15); BUN 6 mg/dL (7-18); BUN/Creat Ratio 4.8 RATIO (10-20); Calcium,Total 8.8 mg/dL (8.5-10.1); Chloride 100 mmol/L (98-107); Creatinine, Serum 1.25 mg/dL (0.70-1.30); EST Glomerular Filtration Rate 63 mL/min (>60); Est Glom Filt Rate - Afr Amer 76 mL/min (>60); Estimated Creatinine Clearance 68.19 ml/min; Glucose 122 mg/dL (74-106); Potassium 2.9 mmol/L (3.5-5.1); Sodium Level 139 mmol/L (136-145); Troponin-I HS 42 pg/mL (3.0-78.0)
--- NOTE | 2021-05-04 14:31 | EDS_ITS ---
HPI History of Present Illness Chief Complaint: Chest Pain Detail of Chief Complaint: Pain that started around 4 AM Informant: patient Onset/Context/Timing Current Severity: 07/18 Maximum Severity: 10/18 Narrative Narrative: Patient presents to the emergency department complaint chest pain that he noticed first around 4 AM. He describes a pressure across his chest. He felt somewhat short of breath with it. He denied nausea or vomiting. Patient states last time he felt anything like this he needed to have his aortic valve replaced. Patient initially had an aneurysm in his chest that was repaired followed by a mechanical valve aortic that was placed which failed and then ended up having a bovine valve placed. Patient also has a pacemaker. Patient denies recent travel or surgery. He currently rates his pain a 6 out of 10. EMS gave patient aspirin and nitro and initially he was not sure if it helped but his pain seems to be improving currently. Prior Similar Symptoms: Yes CVD Risk Factors: Positive for Hypertension, Diabetes, Hypercholesterolemia and Smoking PFSH PFSH Medical History Adrenal nodule Alcoholism Alcoholism in remission Aortic aneurysm Ascending aortic dissection (~2005) Cardiac pacemaker in situ (~06/2016) Diabetes mellitus, type II Essential hypertension Hiatal hernia HTN (hypertension) Left carotid bruit Non-sustained ventricular tachycardia Pacemaker Pleuritic chest pain Pure hypercholesterolemia Right bundle branch block (RBBB) Shortness of breath Sick sinus syndrome SVT (supraventricular tachycardia) Thoracic aortic aneurysm Tobacco use Home Medications omeprazole 40 mg capsule,delayed release 40 mg PO DAILY 06/10/18 [History Last Taken 05/09/20 07:30] metformin 500 mg PO DAILY 01/21/19 [History Last Taken 05/09/20 07:30] yskgmp-[id number]-pqqsmcu 1 cap PO 5X/DAY 09/08/19 [History Last Taken 05/09/20 07:30] insulin glargine 10 units SC BID #1 pen 05/11/20 [Rx Last Taken Unknown] amlodipine 5 mg tablet 5 mg PO DAILY 10/17/20 [History Last Taken Unknown] atorvastatin 10 mg tablet 10 mg PO DAILY 10/17/20 [History Last Taken Unknown] hydralazine 25 mg tablet 25 mg PO TID 10/17/20 [History Last Taken Unknown] hydrochlorothiazide 12.5 mg tablet 12.5 mg PO DAILY 10/17/20 [History Last Taken Unknown] metoprolol succinate 100 mg tablet,extended release 24 hr 100 mg PO DAILY 10/17/20 [History Last Taken Unknown] ramipril 10 mg capsule 10 mg PO BID 10/17/20 [History Last Taken Unknown] Allergy/AdvReac Type Severity Reaction Status Date / Time No Known Allergies Allergy Verified 05/04/21 13:21 Family History Father CAD (coronary artery disease) Mother Dementia Surgical History H/O aortic valve replacement History of aortic aneurysm repair (~2016) History of aortic valve replacement with bioprosthetic valve (~2016) History of cataract surgery History of hernia repair Social History (Updated 10/17/20 @ 14:28 by Tameka Calle) Smoking Status: Current every day smoker tobacco type: cigarettes alcohol intake: former year quit: 2020 substance use type: former substance user caffeine: Yes Type: coffee Number of servings: 3 ROS ROS ED Review of Systems ROS Unobtainable: other Constitutional Constitutional ED: Reports lethargy; Denies chills, fever(s), sweats or weight loss Eyes Eyes: Denies blurry vision, change in vision or diplopia ENT ENT ED: Denies rhinorrhea or sore throat Cardiovascular Cardiovascular: Reports chest pain; Denies orthopnea Respiratory/Chest Respiratory/Chest: Reports dyspnea and dyspnea on exertion; Denies cough, ortho pnea or sputum Gastrointestinal Gastrointestinal: Denies abdominal pain, diarrhea, nausea or vomiting Genitourinary Genitourinary ED: Denies dysuria, hematuria or urinary frequency Musculoskeletal Musculoskeletal: Denies arthralgias, back pain, myalgias or neck pain Integumentary Denies abscess, Abrasions or rash Neurologic Neurologic: Denies headache(s) or weakness Psychiatric Psychiatric: Denies anxiety, depression or suicidal thoughts Endocrine Endocrinology: Denies polydipsia, polyphagia or polyuria Hematologic/Lymphatic Hematologic/Lymphatic: Denies easy bleeding, easy bruising or lymphadenopathy Allergic/Immunologic Allergic/Immunologic ED: Denies mouth swelling, tongue swelling or urticaria EXAM Physical Exam Const Vital Signs: 05/04/21 13:18 05/04/21 14:16 05/04/21 14:32 Temperature 97.6 F L Temperature Source Temporal Pulse Rate 115 H 104 H Respiratory Rate 20 H 18 Blood Pressure 148/84 H 151/84 H Blood Pressure Mean 105 106 Pulse Ox 97 99 Oxygen Delivery Method Room Air Room Air Room Air 05/04/21 14:38 Temperature Temperature Source Pulse Rate 100 Respiratory Rate Blood Pressure 151/84 H Blood Pressure Mean Pulse Ox Oxygen Delivery Method Positive well nourished and well developed General Appearance ED: well developed and NAD HEENT Reports TM's clear and moist mucous membranes normocephalic and atraumatic; Negative for trauma or tenderness Tympanic Membrane ED: Yes TM's clear Eyes PERRL and EOMs intact bilaterally General Eye ED: Negative for pale conjunctiva or scleral icterus Neck no lymphadenopathy, supple and no JVD General: Negative for tenderness Chest Wall inspection of chest normal and palpation of chest normal Chest: Negative for tenderness Resp normal respiratory effort and clear to auscultation bilaterally Effort and Inspection: Negative for respiratory distress or pain with movement Auscultation: Negative for rhonchi, wheezes or diminished lung sounds Cardio regular rate, regular rhythm, S1 normal heart sound, S2 normal heart sound and no murmurs Peripheral Pulses: pulses 2+ throughout GI normal to inspection, nondistended, normoactive bowel sounds, soft to palpation, non-tender, non-distended and no masses Back/Spine no CVA tenderness and no thoracic nor lumbar tenderness Extremity normal to inspection General Extremety ED: Negative for edema General Extremity: Negative for edema Neuro oriented x3, CN's II-XII intact bilaterally, no sensory deficits noted and gait normal Sensorium / Orientation: awake, alert, oriented to person, oriented to place and oriented to time Motor Exam: strength 5/5 throughout and strength abnormal Psych mental status grossly normal Skin no rashes or lesions noted and no wounds Heart Score History: Moderately Suspicious ECG: Nonspecific Repolarization Age: >45 - <65 years Risk Factors: >/= 3 Risk Factors or History of CAD Troponin: </= Normal Limit Score: 5 MDM MDM MDM Narrative Medical decision making narrative: IV line established on arrival. Patient placed on a school bus monitor. Patient had Nitropaste placed to the anterior chest wall. Lab work-up was unremarkable. Patient has a heart score of 5. Case discussed with hospitalist will evaluate patient for admission for chest pain/rule out acute coronary syndrome Lab Data Labs: Laboratory Results - last 24 hr 05/04/21 05/04/21 13:00 13:00 WBC 10.5 RBC 4.37 L Hgb 14.1 Hct 42.0 MCV 96.1 H MCH 32.3 H MCHC 33.6 RDW Std Deviation 49.2 H RDW Coeff of Kalpana 14.0 Plt Count 240 MPV 11.4 Immature Gran % (Auto) 0.400 Neut % (Auto) 81.1 H Lymph % (Auto) 8.7 L Calhoun % (Auto) 8.4 Eos % (Auto) 0.7 Baso % (Auto) 0.7 Absolute Neuts (auto) 8.5 H Absolute Lymphs (auto) 0.91 Nucleated RBC % 0 Sodium 139 Potassium 2.9 L Chloride 100 Carbon Dioxide 32.0 Anion Gap 7 BUN 6 L Creatinine 1.25 Estim Creat Clear Calc 68.19 Est GFR (MDRD) Af Amer 76 Est GFR (MDRD) Non-Af 63 BUN/Creatinine Ratio 4.8 L Glucose 122 H Calcium 8.8 Troponin I High Sens 42 Radiography Chest X-Ray - ED: 1 View Diagnostic Testin view chest x-ray obtained interpreted by myself as no acute disease process. Official report from radiology pending. EKG Initial EKG: Attestation: I personally reviewed and interpreted this EKG as follows: Comments: Sinus tachycardia with a rate of 122 bpm with right bundle branch block Discharge Plan Triage Chief Complaint: Chest Pain ED Provider: Samantha Singer Dx/Rx/DC Orders Clinical Impression: Chest pain, Diabetes, Hypertension Prescriptions: No Action omeprazole 40 mg capsule,delayed release(DR/EC) 40 mg PO DAILY RF: 0 metoprolol succinate 100 mg tablet extended release 24 hr 100 mg PO DAILY RF: 0 hydrochlorothiazide 12.5 mg tablet 12.5 mg PO DAILY RF: 0 atorvastatin 10 mg tablet 10 mg PO DAILY RF: 0 amlodipine 5 mg tablet 5 mg PO DAILY RF: 0 ramipril 10 mg capsule 10 mg PO BID RF: 0 hydralazine 25 mg tablet 25 mg PO TID RF: 0 metformin 500 MG tablet 500 mg PO DAILY RF: 0 ldpriw-yfqbckuf-gkapkec 5,000-17,000- 24,000 unit capsule,delayed release(DR/EC) 1 cap PO 5X/DAY RF: 0 insulin glargine 100 UNITS/ML insulin pen 10 units SC BID Qty: 1 RF: 0 Primary Care Provider: Dk Pathak NP Referrals: Dk Pathak SURGICAL ATTENDANT, SURGICAL ATTENDANT-C [Primary Care Provider] - Disposition Disposition: Acute Care [facility]
--- NOTE | 2021-05-04 14:33 | HP.PCM.HOS_ITS ---
HPI - General General Date of Admission: 05/04/21 HPI Narrative ANALILIA TALLEY, is a 60 M with an extensive PMH as outlined who was admitted via the ED on 05/04/2021 with a complaint of chest pain. He started getting chest pressure ~ 4am, with no radiation. He denied any lightheadedness, dizziness, nausea or vomiting. The chest pain lasted all morning and was still present at time of review. He said it was only relieved mildly by sublingual nitroglycerin and subsequently nitro patch. Review of systems was otherwise negative. He has a history of alcohol abuse and says he quit drinking today. He says he only has a few drinks a day. Vitals in the ED were BP of 151/84, NC of 104, RR of 18 and temp of 99%. CBC showed Hb of 14.1 and wbc of 10.5, platelets were 240. Chemistry showed sodium of 139 with potassium of 2.9. Cr was 1.25. CXR per my read showed no acute cardiopulmonary pathology. EKG showed no acute ST changes. He is being admitted to be managed for chest pain to r/o ACS. [facility] Medical History Adrenal nodule Alcoholism Alcoholism in remission Aortic aneurysm Ascending aortic dissection (~2005) Cardiac pacemaker in situ (~06/2016) Diabetes mellitus, type II Essential hypertension Hiatal hernia HTN (hypertension) Left carotid bruit Non-sustained ventricular tachycardia Pacemaker Pleuritic chest pain Pure hypercholesterolemia Right bundle branch block (RBBB) Shortness of breath Sick sinus syndrome SVT (supraventricular tachycardia) Thoracic aortic aneurysm Tobacco use Home Medications omeprazole 40 mg capsule,delayed release 40 mg PO DAILY 06/10/18 [History Last Taken 05/09/20 07:30] metformin 500 mg PO DAILY 01/21/19 [History Last Taken 05/09/20 07:30] [id number]-lmodyrvl-[id number] 1 cap PO 5X/DAY 09/08/19 [History Last Taken 05/09/20 07:30] insulin glargine 10 units SC BID #1 pen 05/11/20 [Rx Last Taken Unknown] amlodipine 5 mg tablet 5 mg PO DAILY 10/17/20 [History Last Taken Unknown] atorvastatin 10 mg tablet 10 mg PO DAILY 10/17/20 [History Last Taken Unknown] hydralazine 25 mg tablet 25 mg PO TID 10/17/20 [History Last Taken Unknown] hydrochlorothiazide 12.5 mg tablet 12.5 mg PO DAILY 10/17/20 [History Last Taken Unknown] metoprolol succinate 100 mg tablet,extended release 24 hr 100 mg PO DAILY 10/17/20 [History Last Taken Unknown] ramipril 10 mg capsule 10 mg PO BID 10/17/20 [History Last Taken Unknown] Allergy/AdvReac Type Severity Reaction Status Date / Time No Known Allergies Allergy Verified 05/04/21 13:21 Family History Father CAD (coronary artery disease) Mother Dementia Surgical History H/O aortic valve replacement History of aortic aneurysm repair (~2017) History of aortic valve replacement with bioprosthetic valve (~2017) History of cataract surgery History of hernia repair Social History (Updated 10/17/20 @ 14:28 by Tameka Calle) Smoking Status: Current every day smoker tobacco type: cigarettes alcohol intake: former year quit: 2020 substance use type: former substance user caffeine: Yes Type: coffee Number of servings: 3 ROS Constitutional Constitutional: Denies anorexia, chills, fatigue, night sweats or weakness Eyes Eyes: Denies change in vision ENT HEENT: Denies dysphagia, headache(s) or sore throat Cardiovascular Cardiovascular: Reports chest pain; Denies dyspnea on exertion, edema, lightheadedness, orthopnea, palpitations, paroxysmal nocturnal dyspnea, rapid heart rate or syncope Respiratory/Chest Respiratory/Chest: Denies cough, dyspnea, productive cough, shortness of breath at rest or shortness of breath with exertion Gastrointestinal Gastrointestinal: Denies abdominal pain, constipation, diarrhea, nausea or vomiting Genitourinary Genitourinary: Denies burning urination, dysuria or urinary frequency Musculoskeletal Musculoskeletal: Denies arthralgias Neurologic Neurologic: Denies confusion, disequilibrium, dizziness, focal weakness, seizure-like activity, seizures, syncope or tremor(s) Psychiatric Psychiatric: Denies anxiety Endocrine Endocrinology: Denies change in body appearance Vital Signs Vital Signs Vital Signs: 05/04/21 13:18 05/04/21 14:16 Temperature 97.6 F L Temperature Source Temporal Pulse Rate 115 H Respiratory Rate 20 H Blood Pressure 148/84 H Blood Pressure Mean 105 Pulse Ox 97 Oxygen Delivery Method Room Air Room Air Weight Weight: 165 lb Body Mass Index (BMI) 23.0 Physical Exam Const alert, oriented x3 and no apparent distress General Appearance: cooperative HEENT normocephalic, head/scalp atraumatic, hearing grossly normal bilaterally and moist oral mucous membranes Eyes PERRL, EOMs intact bilaterally and conjunctivae normal Neck no lymphadenopathy and supple Resp normal respiratory effort, no retractions, no use of accessory muscles and clear to auscultation bilaterally Cardio regular rate, regular rhythm, S1 normal heart sound, S2 normal heart sound and no murmurs GI normal to inspection, nondistended, normoactive bowel sounds, soft to palpation, non-tender and non-distended Extremity normal to inspection, full ROM and no clubbing, cyanosis or edema Peripheral Pulses: Yes pulses 2+ throughout Skin no rashes or lesions noted Neuro oriented x3 and CN's II-XII intact bilaterally Sensorium / Orientation: awake and alert Psych affect normal Results Lab / Micro Data Result Diagrams: 05/04/21 13:00 05/04/21 13:00 Labs: Laboratory Results - last 24 hr 05/04/21 13:00: WBC 10.5, RBC 4.37 L, Hgb 14.1, Hct 42.0, MCV 96.1 H, MCH 32.3 H , MCHC 33.6, RDW Std Deviation 49.2 H, RDW Coeff of Kalpana 14.0, Plt Count 240, MPV 11.4, Immature Gran % (Auto) 0.400, Neut % (Auto) 81.1 H, Lymph % (Auto) 8.7 L, [place] % (Auto) 8.4, Eos % (Auto) 0.7, Baso % (Auto) 0.7, Absolute Neuts (auto) 8.5 H, Absolute Lymphs (auto) 0.91, Nucleated RBC % 0 05/04/21 13:00: Sodium 139, Potassium 2.9 L, Chloride 100, Carbon Dioxide 32.0, Anion Gap 7, BUN 6 L, Creatinine 1.25, Estim Creat Clear Calc 68.19, Est GFR (MDRD) Af Amer 76, Est GFR (MDRD) Non-Af 63, BUN/Creatinine Ratio 4.8 L, Glucose 122 H, Calcium 8.8, Troponin I High Sens 42 Assessment & Plan Assessment/Plan (1) Chest pain: PLAN: #Chest pain to r/o ACS * admit to PCU with telemetry * initial troponin was negative. * EKG showed no acute ST changes * CXR showed no radiographic evidence of acute cardiopulmonary disease and showed a stable pacemaker * cycle troponins * sl nitroglycerin prn * PO aspirin 81mg daily * for stress test tomorrow if troponins are negative * #Hypertension: On amlodipine and hydralazine/hydrochlorothiazide and metoprolol as well as ramipril #Type 2 diabetes mellitus: * On Lantus 10 units twice daily. Also on Metformin. Hold metformin * insulin sliding scale. Accu-Cheks AC at bedtime. #History of chronic pancreatitis: Due to history of alcohol abuse. On Creon. #Hyperlipidemia: On statin #History of alcohol abuse: Not in withdrawal. Put on CIWA protocol. Oral thiamine and folic acid. DVT prophylaxis: Lovenox CODE STATUS:full code * Patient counseled extensively about different types of CODE STATUS including full code, DNR CCA and DNR CCA. Patient elects to be full code. * Total spun-rh-lohs time 17 minutes. Charges/Coding Visit Charges OBSV E&M: 50142 Initial observation care L2 Procedures Hospitalists Procedures: 80045 Advncd Care Plan 30 Min
[2021-05-04] MEDS: Nitroglycerin Oint 1 INCH PACKET TD (14:38)
[2021-05-04] MEDS: Potassium Chloride Oral Tablet 20 MEQ 40 MEQ PO (14:39)
[2021-05-04 16:48] LABS: Troponin-I HS 44 pg/mL (3.0-78.0)
[2021-05-04] MEDS: Acetaminophen 325 MG Tablet 650 MG PO ×2 (16:58→23:01)
[2021-05-04] MEDS: 0.9% Saline Lock 10 ML Syringe IV (16:59)
[2021-05-04] MEDS: Potassium Chloride 10mEq/100mL 10 MEQ/100 ML IV.SOLN. 100 MEQ IV BOLUS ×4 (17:05→21:04)
[2021-05-04 17:06] LABS: Magnesium 1.7 mg/dL (1.6-2.6)
[2021-05-04 17:36] LABS: Bedside Glucose 149 mg/dL (74-106)
[2021-05-04 20:34] LABS: Troponin-I HS 38 pg/mL (3.0-78.0)
[2021-05-04] MEDS: Insulin Lispro 100 UNIT/ML INSULN.PEN SC (21:03)
[2021-05-04] MEDS: Ramipril 10 MG Capsule PO (21:06)
[2021-05-04] MEDS: hydrALAZINE 25 MG Tablet PO (21:06)
[2021-05-04] MEDS: Atorvastatin Calcium 10 MG Tablet PO (21:07)
[2021-05-04] MEDS: Insulin Glargine-YFGN 100 UNIT/ML Pen 10 UNIT SC (21:07)
[2021-05-04 21:46] LABS: Bedside Glucose 413 mg/dL (74-106)
[2021-05-05] VITALS (11 sets, daily range): BP systolic 128–155; BP diastolic 83–106; PULSE 73–101; RESP 16–18; TEMP 36.7–36.9; O2SAT 97–100
--- NOTE | 2021-05-05 05:14 | EKG12_ITS ---
Test Reason : PRE OP Blood Pressure : / mmHG Vent. Rate : 071 BPM Atrial Rate : 071 BPM P-R Int : 152 ms QRS Dur : 128 ms QT Int : 412 ms P-R-T Axes : 036 -13 066 degrees QTc Int : 447 ms Normal sinus rhythm Right bundle branch block Abnormal ECG When compared with ECG of 04-MAY-2021 15:35, MANUAL COMPARISON REQUIRED, DATA IS UNCONFIRMED Confirmed by ZHAO FRANCISCO, KETTY ([id number]), online editor MAILE BALDWIN ([id number]) on 05/06/2021 11:20:56 AM Referred By: MINOR Confirmed By:KETTY CHURCHILL MD
[2021-05-05 05:54] LABS: Absolute Lymphocyte Count 1.28 X10^3/uL (0.83-4.51); Absolute Neutrophil Count 4.7 X10^3/uL (2.0-7.7); Basophil# 0.06 X10^3/uL; Basophil% 0.9 % (0-1); Eosinophil# 0.17 X10^3/uL; Eosinophils% 2.5 % (0-5); Hematocrit 36.3 % (40-54); Hemoglobin 12.4 g/dL (13.0-16.5); Lymphocyte # 1.28 X10^3/ul (0.83-4.51); Lymphocyte % 18.6 % (19-41); Mean Corp Hgb Conc 34.2 g/dL (32-36); Mean Corpuscular Volume 93.6 fL (80-94); Monocyte# 0.65 X10^3/uL; Monocyte% 9.5 % (0-10); NRBC Flagged by Analyzer 0 % (0-5); Neutrophil # 4.69 X10^3/uL (2.7-7.7); Neutrophil % 68.2 % (47-70); Platelet Count 192 K/mm3 (150-450); RBC Distribution Width CV 13.9 % (11.6-14.6); RBC Distribution Width SD 47.8 fl (35.1-43.9); Red Blood Count 3.88 M/mm3 (4.6-6.2); White Blood Count 6.9 K/mm3 (4.4-11.0)
--- NOTE | 2021-05-05 05:55 | EKG12_ITS ---
Test Reason : CP Blood Pressure : / mmHG Vent. Rate : 101 BPM Atrial Rate : 101 BPM P-R Int : 150 ms QRS Dur : 132 ms QT Int : 376 ms P-R-T Axes : 049 -01 074 degrees QTc Int : 487 ms Sinus tachycardia with Premature atrial complexes Right bundle branch block Abnormal ECG When compared with ECG of 04-MAY-2021 13:21, MANUAL COMPARISON REQUIRED, DATA IS UNCONFIRMED Confirmed by ZHAO FRANCISCO, KETTY ([id number]), publications editor MAILE BALDWIN ([id number]) on 05/06/2021 11:12:34 AM Referred By: MINOR Confirmed By:KETTY CHURCHILL MD
[2021-05-05] MEDS: hydrALAZINE 25 MG Tablet PO ×2 (06:23→13:52)
[2021-05-05 06:27] LABS: Anion Gap 4 (5-15); BUN 7 mg/dL (7-18); BUN/Creat Ratio 6.7 RATIO (10-20); Calcium,Total 8.1 mg/dL (8.5-10.1); Chloride 106 mmol/L (98-107); Creatinine, Serum 1.04 mg/dL (0.70-1.30); EST Glomerular Filtration Rate 78 mL/min (>60); Est Glom Filt Rate - Afr Amer 94 mL/min (>60); Estimated Creatinine Clearance 79.39 ml/min; Glucose 96 mg/dL (74-106); Potassium 3.7 mmol/L (3.5-5.1); Sodium Level 139 mmol/L (136-145)
[2021-05-05] MEDS: Ramipril 10 MG Capsule PO (06:49)
[2021-05-05 06:51] LABS: Bedside Glucose 125 mg/dL (74-106)
[2021-05-05] MEDS: Multivitamins,Therapeutic Tablet 1 TABLET PO (10:45)
[2021-05-05] MEDS: Thiamine Hydrochloride 100 MG Tablet PO (10:45)
[2021-05-05] MEDS: hydroCHLOROthiazide 12.5mg 12.5 MG PO (10:46)
[2021-05-05] MEDS: Pantoprazole Sodium 40 MG Tablet PO (10:46)
[2021-05-05] MEDS: amLODIPine 5 MG Tablet PO (10:46)
[2021-05-05] MEDS: Metoprolol(XL)Succ 100 MG Tablet PO (10:47)
[2021-05-05] MEDS: Insulin Glargine-YFGN 100 UNIT/ML Pen 10 UNIT SC (10:51)
[2021-05-05] MEDS: Acetaminophen 325 MG Tablet 650 MG PO (10:53)
[2021-05-05] MEDS: Insulin Lispro 100 UNIT/ML INSULN.PEN SC (10:56)
--- NOTE | 2021-05-05 11:48 | STRESSREP ---
Stress Test Report Date: 05/05/2021 Procedure: Pharmacologic stress nuclear imaging study Indications: Chest pain Consent: Per the patient Procedure: The patient underwent pharmacologic (Regadenoson) evaluation with a peak heart rate of 99 beats per minute (61%predicted maximal heart rate) and a peak blood pressure of 148/72 mmHg. The baseline ECG demonstrated normal sinus rhythm, right bundle branch block. EKG during lexiscan infusion revealed no significant ischemic changes. EKG post infusion revealed no significant ischemic changes [There were no cardiac dysrhythmias pretest, during pharmacologic infusion, or recovery]. [There was no complaint of chest discomfort during pharmacologic infusion or recovery]. The examination was discontinued secondary to completion of protocol. Impression: 1. Lexiscan stress test test is negative for Lexiscan infusion induced EKG changes of ischemia. 2. Lexiscan stress test test is negative for Lexiscan infusion induced chest pain. 3. Results of the nuclear portion of the test is as below Myocardial perfusion imaging study: Technique: The patient was injected with 11.4 millicuries of technetium 99m Cardiolite and subsequently rest SPECT Cardiolite nuclear imaging was obtained in the horizontal long, vertical long, and short axis views. The patient underwent pharmacologic [Regadenoson 0.4mg] evaluation. Please see above for details. The patient was injected with 31.8 millicuries of technetium 99m Cardiolite and subsequently stress SPECT Cardiolite nuclear imaging was obtained in the horizontal long, vertical long, and short axis views. A gated Cardiolite study at peak stress was obtained. Interpretation: Rest and stress SPECT Cardiolite nuclear imaging status post realignment, normalization, and attenuation correction demonstrate mildly decreased radioisotope uptake in the inferior wall on both the rest and stress images prior to attenuation correction. After attenuation correction there is normal myocardial radioisotope uptake. These findings are suggestive of diaphragmatic attenuation artifact. There is no evidence of significant ischemia or infarction. Gated images reveal no significant regional wall motion abnormalities. The reported LVEF is 56%. Impression: 1. There is no evidence of significant ischemia or infarction. 2. Estimated ejection fraction is 56%. This note was generated with [email or web address] software. It may contain incorrect words, spelling, and punctuation that were not noted in checking the note before signing.
[2021-05-05 12:16] LABS: Bedside Glucose 183 mg/dL (74-106)
--- NOTE | 2021-05-05 13:40 | DS.PCM_ITS ---
Providers Date of Admission: 05/04/21 Date of Discharge: 05/05/21 Primary Care Physician: Dk Pathak, WASHERY ENGINEER-C Reason For Visit: CHEST PAIN Diagnosis Discharge Diagnosis (1) Chest pain: Status: Resolved Code(s): R07.9 - Chest pain, unspecified Medications at Discharge Home Medications omeprazole 40 mg capsule,delayed release 40 mg PO DAILY 06/10/18 metformin 500 mg PO DAILY 01/21/19 hphhsw-exgpunqk-cfsbbpe 1 cap PO 5X/DAY 09/08/19 insulin glargine 10 units SC BID #1 pen 05/11/20 amlodipine 5 mg tablet 5 mg PO DAILY 10/17/20 atorvastatin 10 mg tablet 10 mg PO DAILY 10/17/20 hydralazine 25 mg tablet 25 mg PO TID 10/17/20 hydrochlorothiazide 12.5 mg tablet 12.5 mg PO DAILY 10/17/20 metoprolol succinate 100 mg tablet,extended release 24 hr 100 mg PO DAILY 10/17/20 ramipril 10 mg capsule 10 mg PO BID 10/17/20 Hospital Course Operations None Procedures Stress test Summary of Care Provided Minutes Spent on Discharge: 25 Hospital Course: 60-year-old male past medical history of hypertension, type II DM, chronic alcohol use disorder who comes in with complaints of chest discomfort, that was continuous. He denies any associated symptoms such as lightheadedness, dizziness. Patient's admitting EKG did not show acute ST-T changes. His potassium was 2.9. Creatinine is 1.25. He was admitted to the progressive care unit and monitored. His potassium was replaced. He underwent stress test on 05/05/21. Results were unremarkable. There were no acute events during his hospital stay. Patient will follow up with his primary care doctor within 1 week. Physical Exam Narrative Physical exam: General: Alert, Oriented x3, Cooperative, No apparent distress, appeared frail HEENT: Atraumatic Oral: Moist Mucosa Neck: Supple Lungs: Clear to auscultation Cardiovascular: HS I+II, regular, no murmurs Abdomen: Bowel Sounds Present, Soft, Non Tender Extremities: No edema Skin: No rashes, No breakdown Neurological: Grossly intact Psych/Mental Status: Appropriate Weight / BMI Weight Weight: 72.5 kg Body Mass Index (BMI) 22.3 ABG / Lab / Microbiology Data Result Diagrams: 05/05/21 05:15 05/05/21 05:15 Laboratory: Laboratory Results - last 24 hr 05/04/21 13:00: WBC 10.5, RBC 4.37 L, Hgb 14.1, Hct 42.0, MCV 96.1 H, MCH 32.3 H , MCHC 33.6, RDW Std Deviation 49.2 H, RDW Coeff of Kalpana 14.0, Plt Count 240, MPV 11.4, Immature Gran % (Auto) 0.400, Neut % (Auto) 81.1 H, Lymph % (Auto) 8.7 L, [place] % (Auto) 8.4, Eos % (Auto) 0.7, Baso % (Auto) 0.7, Absolute Neuts (auto) 8.5 H, Absolute Lymphs (auto) 0.91, Nucleated RBC % 0 05/04/21 13:00: Sodium 139, Potassium 2.9 L, Chloride 100, Carbon Dioxide 32.0, Anion Gap 7, BUN 6 L, Creatinine 1.25, Estim Creat Clear Calc 68.19, Est GFR (MDRD) Af Amer 76, Est GFR (MDRD) Non-Af 63, BUN/Creatinine Ratio 4.8 L, Glucose 122 H, Calcium 8.8, Troponin I High Sens 42 05/04/21 16:20: Troponin I High Sens 44 05/04/21 16:20: Magnesium 1.7 05/04/21 17:30: POC Glucose 149 H 05/04/21 19:11: Troponin I High Sens 38 05/04/21 20:58: POC Glucose 413 H 05/05/21 05:15: WBC 6.9, RBC 3.88 L, Hgb 12.4 L, Hct 36.3 L, MCV 93.6, MCH 32.0, MCHC 34.2, RDW Std Deviation 47.8 H, RDW Coeff of Kalpana 13.9, Plt Count 192, MPV 11.0, Immature Gran % (Auto) 0.300, Neut % (Auto) 68.2, Lymph % (Auto) 18.6 L, [place] % (Auto) 9.5, Eos % (Auto) 2.5, Baso % (Auto) 0.9, Absolute Neuts (auto) 4.7, Absolute Lymphs (auto) 1.28, Nucleated RBC % 0 05/05/21 05:15: Sodium 139, Potassium 3.7, Chloride 106, Carbon Dioxide 29.0, Anion Gap 4 L, BUN 7, Creatinine 1.04, Estim Creat Clear Calc 79.39, Est GFR ( RD) Af Amer 94, Est GFR (MDRD) Non-Af 78, BUN/Creatinine Ratio 6.7 L, Glucose 96, Calcium 8.1 L 05/05/21 06:45: POC Glucose 125 H 05/05/21 10:50: POC Glucose 183 H Radiography Diagnostic Testing: Radiology Impression Chest X-Ray 05/04/21 13:56 IMPRESSION: No radiographic evidence of acute cardiopulmonary disease. at 1531 Reported and signed by: Scott Foreman MD Electronically Signed: Scott Foreman MD at 15:30 EDT Reading Location ID and State: [address] [place] [address] Tel , Service support , D/C Instructions Discharge Diet: No restrictions Meaningful Use Info Meaningful Use Diagnoses (Choose all that apply): None applicable Discharge Plan Admission Admit Date/Time: 05/04/21 14:55 Primary Reason for Your Visit: Acute chest pain Attending Provider: Arielle Crowe Primary Care Provider: Dk Pathak WASHERY ENGINEER Instructions Forms: Work / School Excuse Additional Instructions / Restrictions: Continue to take all your medications as prescribed. Follow-up with your primary care doctor within 5 to 7 days. Discharge Orders/Prescriptions Prescriptions: Continued omeprazole 40 mg capsule,delayed release(DR/EC) 40 mg PO DAILY RF: 0 metoprolol succinate 100 mg tablet extended release 24 hr 100 mg PO DAILY RF: 0 hydrochlorothiazide 12.5 mg tablet 12.5 mg PO DAILY RF: 0 atorvastatin 10 mg tablet 10 mg PO DAILY RF: 0 amlodipine 5 mg tablet 5 mg PO DAILY RF: 0 ramipril 10 mg capsule 10 mg PO BID RF: 0 hydralazine 25 mg tablet 25 mg PO TID RF: 0 metformin 500 MG tablet 500 mg PO DAILY RF: 0 espufm-lcumdzsp-tfasbse 5,000-17,000- 24,000 unit capsule,delayed release(DR/EC) 1 cap PO 5X/DAY RF: 0 insulin glargine 100 UNITS/ML insulin pen 10 units SC BID Qty: 1 RF: 0 Referrals / Follow Up: Dk Pathak NP, WASHERY ENGINEER-C [Primary Care Provider] - In 1 Week Disposition Disposition (needs filled in before D/C Order can be placed): Home, Self Care Charges/Coding Visit Charges OBSV E&M: 62426 Observation care discharge
--- NOTE | 2021-05-05 13:40 | PCM.DC ---
Discharge Instructions Diet Discharge Diet: No restrictions Activity Discharge Activity: Return to Normal Activity Follow Up Care Test Results: Test results from this visit will be discussed in further detail at your follow-up appointment, if applicable. Discharge Plan Admission Admit Date/Time: 05/04/21 14:55 Primary Reason for Your Visit: Acute chest pain Attending Provider: Arielle Crowe Primary Care Provider: Dk Pathak NP Instructions Additional Instructions / Restrictions: Continue to take all your medications as prescribed. Follow-up with your primary care doctor within 5 to 7 days. Discharge Orders/Prescriptions Prescriptions: Continued omeprazole 40 mg capsule,delayed release(DR/EC) 40 mg PO DAILY RF: 0 metoprolol succinate 100 mg tablet extended release 24 hr 100 mg PO DAILY RF: 0 hydrochlorothiazide 12.5 mg tablet 12.5 mg PO DAILY RF: 0 atorvastatin 10 mg tablet 10 mg PO DAILY RF: 0 amlodipine 5 mg tablet 5 mg PO DAILY RF: 0 ramipril 10 mg capsule 10 mg PO BID RF: 0 hydralazine 25 mg tablet 25 mg PO TID RF: 0 metformin 500 MG tablet 500 mg PO DAILY RF: 0 pnhhsl-dmpuqbeb-kxzxirh 5,000-17,000- 24,000 unit capsule,delayed release(DR/EC) 1 cap PO 5X/DAY RF: 0 insulin glargine 100 UNITS/ML insulin pen 10 units SC BID Qty: 1 RF: 0 Referrals / Follow Up: Dk Pathak NP, LOCKSTITCH TUNNEL ELASTIC OPERATOR-C [Primary Care Provider] - In 1 Week Disposition Disposition (needs filled in before D/C Order can be placed): Home, Self Care
[2021-05-06 07:41] LABS: Bedside Glucose 55 mg/dL (74-106)
[2021-05-06 07:41] LABS: Bedside Glucose 66 mg/dL (74-106)
== END 2021-05-05 13:34 | disposition home or self-care (01) ==
LOC: ED 14:47 → PCU 15:18
PROVIDERS: Admitting Provider Student in an Organized Health Care Education/Training Program; Emergency Provider Emergency Medicine; PCP Nurse Practitioner Family; Visit Provider Internal Medicine
DX: R07.89 Other chest pain (principal); F10.20 Alcohol dependence, uncomplicated; E11.9 Type 2 diabetes mellitus without complications; Z79.4 Long term (current) use of insulin; I10 Essential (primary) hypertension; E78.00 Pure hypercholesterolemia, unspecified; Z79.899 Other long term (current) drug therapy; Z95.2 Presence of prosthetic heart valve; Z87.891 Personal history of nicotine dependence; Z95.0 Presence of cardiac pacemaker
CPT/HCPCS: 36415; 71045; 78452; 80048; 82962; 83735; 84484; 85025; 93005; 93017; 96365; 96366; 99218; 99285; 99406; A9500; J7040; A4216; G0378; J2785

== ENCOUNTER 2021-05-21 18:27 | Emergency (ER) | payer OTHER, SELFPAY ==
[2021-05-21 18:28] VITALS: TEMP 36.8; BMI 24.0
[2021-05-21 18:42] VITALS: BP 153/88; PULSE 105; RESP 18; O2SAT 98
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
[2021-05-21 19:32] LABS: Absolute Lymphocyte Count 1.24 X10^3/uL (0.83-4.51); Basophil# 0.12 X10^3/uL; Eosinophil# 0.13 X10^3/uL; Eosinophils% 2.2 % (0-5); Hematocrit 40.9 % (40-54); Hemoglobin 14.1 g/dL (13.0-16.5); Lymphocyte # 1.24 X10^3/ul (0.83-4.51); Lymphocyte % 20.5 % (19-41); Mean Corp Hgb Conc 34.5 g/dL (32-36); Mean Corpuscular Hgb 32.3 pg (27.0-32.0); Mean Corpuscular Volume 93.8 fL (80-94); Mean Platelet Vol. 9.9 fl (6.2-12.0); Monocyte% 8.3 % (0-10); NRBC Flagged by Analyzer 0 % (0-5); Neutrophil # 4.03 X10^3/uL (2.7-7.7); Neutrophil % 66.7 % (47-70); Platelet Count 232 K/mm3 (150-450); RBC Distribution Width CV 13.9 % (11.6-14.6); RBC Distribution Width SD 48.5 fl (35.1-43.9); Red Blood Count 4.36 M/mm3 (4.6-6.2)
[2021-05-21 19:42] LABS: International Normalized Ratio 1.1; Prothrombin Time (Protime)PT. 13.9 SECONDS (11.7-14.9)
[2021-05-21 19:43] VITALS: RESP 15
[2021-05-21 19:47] LABS: Amphetamine Urine VISTA NEGATIVE (<1000 ng/mL); Barbiturate Urine VISTA NEGATIVE (< 200 ng/mL); Benzodiazepine Urine VISTA NEGATIVE (< 200 ng/mL); Cocaine Urine VISTA NEGATIVE (< 300 ng/mL); Ecstacy Urine VISTA NEGATIVE (< 500 ng/mL); Methadone Urine VISTA NEGATIVE (< 300 ng/mL); PCP Urine VISTA NEGATIVE (< 25 ng/mL); THC Urine VISTA NEGATIVE (< 50 ng/mL); Vista UDS pH Range 6
[2021-05-21 19:49] LABS: AST(SGOT) 18 U/L (15-37); Alanine Aminotransfer ALT/SGPT 23 U/L (16-61); Albumin, Serum 3.4 g/dL (3.2-5.0); Alkaline Phosphatase 109 U/L (45-117); Anion Gap 10 (5-15); BUN 10 mg/dL (7-18); BUN/Creat Ratio 8.5 RATIO (10-20); Calcium,Total 8.2 mg/dL (8.5-10.1); Chloride 105 mmol/L (98-107); Creatinine, Serum 1.18 mg/dL (0.70-1.30); EST Glomerular Filtration Rate 67 mL/min (>60); Est Glom Filt Rate - Afr Amer 81 mL/min (>60); Estimated Creatinine Clearance 68.24 ml/min; Globulin 3.3 g/dL (2.2-4.2); Glucose 440 mg/dL (74-106); Potassium 3.5 mmol/L (3.5-5.1); Protein, Total 6.7 g/dL (6.4-8.2); Sodium Level 142 mmol/L (136-145)
[2021-05-21 20:13] VITALS: RESP 16
[2021-05-21 22:31] VITALS: BP 123/73; PULSE 82; RESP 16; O2SAT 94
[2021-05-22] VITALS (7 sets, daily range): BP systolic 111–147; BP diastolic 71–83; PULSE 100–106; RESP 14–18; TEMP 36.6; O2SAT 94–95
[2021-05-22] MEDS: Acetaminophen 325 MG Tablet 650 MG PO (03:13)
[2021-05-22 05:15] LABS: Bedside Glucose 213 mg/dL (74-106)
== END 2021-05-22 07:52 | disposition home or self-care (01) ==
PROVIDERS: Emergency Medicine; Emergency Provider Emergency Medicine; PCP Nurse Practitioner Family; Visit Provider Emergency Medicine
DX: F10.129 Alcohol abuse with intoxication, unspecified (principal); I71.9 Aortic aneurysm of unspecified site, without rupture; I71.2 Thoracic aortic aneurysm, without rupture; I49.5 Sick sinus syndrome; E11.9 Type 2 diabetes mellitus without complications; Z79.4 Long term (current) use of insulin; F17.210 Nicotine dependence, cigarettes, uncomplicated; I10 Essential (primary) hypertension; F32.A Depression, unspecified; R45.851 Suicidal ideations; E78.00 Pure hypercholesterolemia, unspecified; Z95.0 Presence of cardiac pacemaker; Z79.899 Other long term (current) drug therapy; Z95.2 Presence of prosthetic heart valve; Y90.9 Presence of alcohol in blood, level not specified
CPT/HCPCS: 80053; 80307; 82077; 82962; 85025; 85610; 87426; 99283

== ENCOUNTER 2021-05-29 19:07 | Inpatient (IN) | payer OTHER, SELFPAY ==
[2021-05-29 19:09] VITALS: BP 153/80; PULSE 126; RESP 15; TEMP 36.8; O2SAT 98; BMI 23.0
[2021-05-29 19:49] LABS: Absolute Lymphocyte Count 0.95 X10^3/uL (0.83-4.51); Absolute Neutrophil Count 5.6 X10^3/uL (2.0-7.7); Basophil# 0.08 X10^3/uL; Basophil% 1.1 % (0-1); Eosinophil# 0.07 X10^3/uL; Eosinophils% 0.9 % (0-5); Hematocrit 38.3 % (40-54); Lymphocyte # 0.95 X10^3/ul (0.83-4.51); Lymphocyte % 12.9 % (19-41); Mean Corp Hgb Conc 33.9 g/dL (32-36); Mean Corpuscular Volume 94.3 fL (80-94); Mean Platelet Vol. 10.9 fl (6.2-12.0); Monocyte# 0.61 X10^3/uL; Monocyte% 8.3 % (0-10); NRBC Flagged by Analyzer 0 % (0-5); Neutrophil # 5.63 X10^3/uL (2.7-7.7); Neutrophil % 76.3 % (47-70); Platelet Count 220 K/mm3 (150-450); RBC Distribution Width CV 13.9 % (11.6-14.6); RBC Distribution Width SD 48.4 fl (35.1-43.9); Red Blood Count 4.06 M/mm3 (4.6-6.2); White Blood Count 7.4 K/mm3 (4.4-11.0)
[2021-05-29 20:05] LABS: Anion Gap 10 (5-15); BUN 13 mg/dL (7-18); BUN/Creat Ratio 10.9 RATIO (10-20); Calcium,Total 8.2 mg/dL (8.5-10.1); Chloride 102 mmol/L (98-107); Creatinine, Serum 1.19 mg/dL (0.70-1.30); EST Glomerular Filtration Rate 67 mL/min (>60); Est Glom Filt Rate - Afr Amer 81 mL/min (>60); Estimated Creatinine Clearance 71.63 ml/min; Glucose 323 mg/dL (74-106); Potassium 3.8 mmol/L (3.5-5.1); Sodium Level 141 mmol/L (136-145)
[2021-05-29 20:13] LABS: Amphetamine Urine VISTA NEGATIVE (<1000 ng/mL); Barbiturate Urine VISTA NEGATIVE (< 200 ng/mL); Benzodiazepine Urine VISTA NEGATIVE (< 200 ng/mL); Cocaine Urine VISTA NEGATIVE (< 300 ng/mL); Ecstacy Urine VISTA NEGATIVE (< 500 ng/mL); Methadone Urine VISTA NEGATIVE (< 300 ng/mL); PCP Urine VISTA NEGATIVE (< 25 ng/mL); THC Urine VISTA NEGATIVE (< 50 ng/mL); Vista UDS pH Range 7
--- NOTE | 2021-05-29 20:16 | EX.ED.SAOD ---
HPI History of Present Illness Chief Complaint: Substance Abuse Informant: patient Narrative Narrative: Patient here for alcohol assistance. Restarted drinking end of March he reports only 2-40 ounce beers a day. No other alcoholic substance. Denies any recreational drug use. Tremors throughout the day with headache not improved with Tylenol. States he was sleeping throughout the day wakes up with take 2 Tylenol's. Unclear on the amount. Denies abdominal pain or vomiting. States he feels like he needs to drink. Denies any withdrawal seizures. He does not know how much he drank today. History of aortic valve repair and sick sinus syndrome with a pacemaker. He is a diabetic on insulin and states sugars been up and down recently was low. He has not been eating much. Brought in by EMS. States has not had help for alcohol in the past. He states he was sober for a year with a probationary anklet. Prior similar symptoms: Yes PFSH PFSH Medical History Adrenal nodule Alcoholism Alcoholism in remission Aortic aneurysm Ascending aortic dissection (~2005) Cardiac pacemaker in situ (~06/2016) Diabetes mellitus, type II Essential hypertension Hiatal hernia HTN (hypertension) Left carotid bruit Non-sustained ventricular tachycardia Pacemaker Pleuritic chest pain Pure hypercholesterolemia Right bundle branch block (RBBB) Shortness of breath Sick sinus syndrome Smoker Substance abuse SVT (supraventricular tachycardia) Thoracic aortic aneurysm Tobacco use Home Medications omeprazole 40 mg capsule,delayed release 40 mg PO DAILY 06/10/18 [History Last Taken 05/04/21] metformin 500 mg PO BID 01/21/19 [History Last Taken 05/04/21] ayrkto-[id number]-jilqelk 1 cap PO 5X/DAY 09/08/19 [History Last Taken 05/04/21] amlodipine 5 mg tablet 5 mg PO DAILY 10/17/20 [History Last Taken 05/04/21] atorvastatin 10 mg tablet 10 mg PO DAILY 10/17/20 [History Last Taken 05/03/21] hydralazine 25 mg tablet 25 mg PO TID 10/17/20 [History Last Taken 05/04/21] hydrochlorothiazide 12.5 mg tablet 12.5 mg PO DAILY 10/17/20 [History Last Taken 05/03/21] metoprolol succinate 100 mg tablet,extended release 24 hr 100 mg PO DAILY 10/17/20 [History Last Taken 05/04/21] ramipril 10 mg capsule 10 mg PO BID 10/17/20 [History Last Taken 05/04/21] insulin glargine 25 units SC QHS 05/29/21 [History Last Taken Unknown] Allergy/AdvReac Type Severity Reaction Status Date / Time No Known Allergies Allergy Verified 05/29/21 19:12 Family History Father CAD (coronary artery disease) Mother Dementia Surgical History H/O aortic valve replacement H/O cardiac catheterization History of aortic aneurysm repair (~2016) History of aortic valve replacement with bioprosthetic valve (~2016) History of cataract surgery History of hernia repair Social History Smoking Status: Current every day smoker tobacco type: cigarettes alcohol intake: former year quit: 2020 substance use type: former substance user caffeine: Yes Type: coffee Number of servings: 3 ROS ROS ED Constitutional Constitutional ED: Denies chills, fever(s) or sweats Eyes Eyes: Denies change in vision ENT ENT ED: Denies dysphagia or sore throat Cardiovascular Cardiovascular: Denies chest pain, leg edema, palpitations or racing heartbeat Respiratory/Chest Respiratory/Chest: Denies cough, dyspnea or dyspnea on exertion Gastrointestinal Gastrointestinal: Denies abdominal pain, diarrhea, nausea or vomiting Genitourinary Genitourinary ED: Denies dysuria, hematuria or urinary frequency Musculoskeletal Musculoskeletal: Denies back pain, extremity pain or neck pain Integumentary Denies rash or wounds Neurologic Neurologic: Reports headache(s) and other Details: Tremors ; Denies paresthesias or weakness EXAM Physical Exam Const Vital Signs: 05/29/21 19:09 05/29/21 20:49 Temperature 98.3 F 98.3 F Temperature Source Oral Oral Pulse Rate 126 H 115 H Respiratory Rate 15 18 Blood Pressure 153/80 H 127/79 H Blood Pressure Mean 104 95 Pulse Ox 98 95 Oxygen Delivery Method Room Air Room Air Positive well nourished and well developed Constitutional Narrative: Cooperative, visualized tremors no diaphoresis. He was ambulating to the restroom and back prior to my evaluation. General Appearance ED: well developed HEENT Reports dry mucous membranes normocephalic and atraumatic Mouth ED: Yes dry mucous membranes Mouth: dry mucous membranes Eyes PERRL, EOMs intact bilaterally and conjunctivae normal General Eye ED: Yes normal appearance of both eyes Neck no lymphadenopathy and supple General: Negative for tenderness Chest Wall Chest: Negative for tenderness Resp normal respiratory effort and normal air movement Effort and Inspection: symmetric chest movement; Negative for respiratory distress Cardio regular rhythm and no murmurs Rate: tachycardic Peripheral Pulses: pulses 2+ throughout GI normal to inspection, nondistended, normoactive bowel sounds and non-tender Palpation: Negative for guarding or rebound tenderness present Back/Spine no CVA tenderness and no thoracic nor lumbar tenderness Extremity normal to inspection General Extremety ED: Negative for edema or tenderness General Extremity: Negative for edema Neuro oriented x3 and no sensory deficits noted Sensorium / Orientation: awake and alert Skin no rashes or lesions noted and no wounds Rashes: no rashes MDM MDM MDM Narrative Medical decision making narrative: Patient tachycardic dry mucosal membranes, CIWA score is 12. Nursing protocol labs were initiated. Alcohol returned at 46. Electrolytes were normal. Hemoglobin 13. Talk screen negative. He was given IV fluids, 2 mg IV Ativan was given. I added aspirin and Tylenol along with liver enzymes with his reported Tylenol use. Tylenol level negative normal liver enzymes. Tremors improved with Ativan heart rate slightly tachycardic. I spoke with hospitalist Dr. Frausto for admission to the medical floor for further management. Lab Data Attestation: I reviewed the patient's lab results. Labs: Laboratory Results - last 24 hr 05/29/21 05/29/21 05/29/21 19:30 19:30 19:30 WBC 7.4 RBC 4.06 L Hgb 13.0 Hct 38.3 L MCV 94.3 H MCH 32.0 MCHC 33.9 RDW Std Deviation 48.4 H RDW Coeff of [place] 13.9 Plt Count 220 MPV 10.9 Immature Gran % (Auto) 0.500 Neut % (Auto) 76.3 H Lymph % (Auto) 12.[address] % (Auto) 8.3 Eos % (Auto) 0.9 Baso % (Auto) 1.1 H Absolute Neuts (auto) 5.6 Absolute Lymphs (auto) 0.95 Nucleated RBC % 0 Sodium 141 Potassium 3.8 Chloride 102 Carbon Dioxide 29.0 Anion Gap 10 BUN 13 Creatinine 1.19 Estim Creat Clear Calc 71.63 Est GFR (MDRD) Af Amer 81 Est GFR (MDRD) Non-Af 67 BUN/Creatinine Ratio 10.9 Glucose 323 H Calcium 8.2 L Total Bilirubin Direct Bilirubin AST ALT Alkaline Phosphatase Total Protein Albumin Globulin Salicylates Urine Opiates Screen Urine Methadone Screen Acetaminophen Ur Barbiturates Screen Ur Phencyclidine Scrn Ur Amphetamines Screen MDMA (Ecstasy) Screen U Benzodiazepines Scrn Urine Cocaine Screen U Cannabinoids Screen Ur Drug Screen Comment Ethyl Alcohol 46.0 05/29/21 05/29/21 05/29/21 19:30 19:30 19:45 WBC RBC Hgb Hct MCV MCH MCHC RDW Std Deviation RDW Coeff of [place] Plt Count MPV Immature Gran % (Auto) Neut % (Auto) Lymph % (Auto) [place] % (Auto) Eos % (Auto) Baso % (Auto) Absolute Neuts (auto) Absolute Lymphs (auto) Nucleated RBC % Sodium Potassium Chloride Carbon Dioxide Anion Gap BUN Creatinine Estim Creat Clear Calc Est GFR (MDRD) Af Amer Est GFR (MDRD) Non-Af BUN/Creatinine Ratio Glucose Calcium Total Bilirubin 0.20 Direct Bilirubin 0.12 AST 33 ALT 23 Alkaline Phosphatase 105 Total Protein 6.7 Albumin 3.5 Globulin 3.2 Salicylates 12.6 Urine Opiates Screen NEGATIVE Urine Methadone Screen NEGATIVE Acetaminophen < 2.0 L Ur Barbiturates Screen NEGATIVE Ur Phencyclidine Scrn NEGATIVE Ur Amphetamines Screen NEGATIVE MDMA (Ecstasy) Screen NEGATIVE U Benzodiazepines Scrn NEGATIVE Urine Cocaine Screen NEGATIVE U Cannabinoids Screen NEGATIVE Ur Drug Screen Comment Ethyl Alcohol Discharge Plan Dx/Rx/DC Orders Clinical Impression: Alcohol dependence, Alcohol withdrawal, Tremors of nervous system Disposition Disposition: Acute Care Hospital [facility] Discharge Date/Time: 05/29/21 21:54
[2021-05-29] MEDS: 0.9% Normal Saline 1,000 ML 999 ML IV (20:24)
[2021-05-29] MEDS: LORazepam 2 MG/ML Syringe IV (20:24)
[2021-05-29 20:46] LABS: AST(SGOT) 33 U/L (15-37); Acetaminophen (Tylenol) Level < 2.0 ug/mL (10.0-30.0); Alanine Aminotransfer ALT/SGPT 23 U/L (16-61); Albumin, Serum 3.5 g/dL (3.2-5.0); Alkaline Phosphatase 105 U/L (45-117); Bilirubin, Direct 0.12 mg/dL (0.00-0.30); Globulin 3.2 g/dL (2.2-4.2); Protein, Total 6.7 g/dL (6.4-8.2); Salicylate 12.6 mg/dL (2.8-20.0)
[2021-05-29 20:49] VITALS: BP 127/79; PULSE 115; RESP 18; TEMP 36.8; O2SAT 95
--- NOTE | 2021-05-29 21:36 | PCM.HP.STD ---
HPI - General General Date of Admission: 05/29/21 HPI Narrative ANALILIA TALLEY, is a 60 M who presents to the hospital requesting detox from alcohol. He is not sure when his last drink was but he knows it was not today. Blood alcohol level in the ER was 46. He tested negative for other drugs and denies any other drug use. He has had previous admissions for alcohol withdrawal but denies any previous seizures. He states that he has tried outpatient rehab before. He has been tachycardic here in the ER this is secondary to anxiety and agitation, he does endorse tremors. He denies any shortness of breath or chest pain. [facility] Medical History Adrenal nodule Alcoholism Alcoholism in remission Aortic aneurysm Ascending aortic dissection (~2005) Cardiac pacemaker in situ (~06/2016) Diabetes mellitus, type II Essential hypertension Hiatal hernia HTN (hypertension) Left carotid bruit Non-sustained ventricular tachycardia Pacemaker Pleuritic chest pain Pure hypercholesterolemia Right bundle branch block (RBBB) Shortness of breath Sick sinus syndrome SVT (supraventricular tachycardia) Thoracic aortic aneurysm Tobacco use Home Medications omeprazole 40 mg capsule,delayed release 40 mg PO DAILY 06/10/18 [History Last Taken 05/04/21] metformin 500 mg PO BID 01/21/19 [History Last Taken 05/04/21] ncomcq-nrxgwzqy-gbxoxrf 1 cap PO 5X/DAY 09/08/19 [History Last Taken 05/04/21] amlodipine 5 mg tablet 5 mg PO DAILY 10/17/20 [History Last Taken 05/04/21] atorvastatin 10 mg tablet 10 mg PO DAILY 10/17/20 [History Last Taken 05/03/21] hydralazine 25 mg tablet 25 mg PO TID 10/17/20 [History Last Taken 05/04/21] hydrochlorothiazide 12.5 mg tablet 12.5 mg PO DAILY 10/17/20 [History Last Taken 05/03/21] metoprolol succinate 100 mg tablet,extended release 24 hr 100 mg PO DAILY 10/17/20 [History Last Taken 05/04/21] ramipril 10 mg capsule 10 mg PO BID 10/17/20 [History Last Taken 05/04/21] insulin glargine 25 units SC QHS 05/29/21 [History Last Taken Unknown] Allergy/AdvReac Type Severity Reaction Status Date / Time No Known Allergies Allergy Verified 05/29/21 19:12 Family History Father CAD (coronary artery disease) Mother Dementia Surgical History H/O aortic valve replacement History of aortic aneurysm repair (~2016) History of aortic valve replacement with bioprosthetic valve (~2016) History of cataract surgery History of hernia repair Social History Smoking Status: Current every day smoker tobacco type: cigarettes alcohol intake: former year quit: 2020 substance use type: former substance user caffeine: Yes Type: coffee Number of servings: 3 ROS Constitutional Constitutional: Denies chills, fatigue, fever(s) or malaise Eyes Eyes: Denies blurry vision ENT HEENT: Denies headache(s) or nasal discharge Cardiovascular Cardiovascular: Denies chest pain, dyspnea on exertion or syncope Respiratory/Chest Respiratory/Chest: Denies cough, shortness of breath at rest or shortness of breath with exertion Gastrointestinal Gastrointestinal: Denies constipation, diarrhea, nausea or vomiting Genitourinary Genitourinary: Denies dysuria Neurologic Neurologic: Reports tremor(s); Denies focal weakness or numbness Psychiatric Psychiatric: Reports anxiety; Denies depression Vital Signs Vital Signs Vital Signs: 05/29/21 19:09 05/29/21 20:49 Temperature 98.3 F 98.3 F Temperature Source Oral Oral Pulse Rate 126 H 115 H Respiratory Rate 15 18 Blood Pressure 153/80 H 127/79 H Blood Pressure Mean 104 95 Pulse Ox 98 95 Oxygen Delivery Method Room Air Room Air Weight Weight: 165 lb Body Mass Index (BMI) 23.0 Physical Exam Const alert and oriented x3 General Appearance: cooperative HEENT normocephalic and moist oral mucous membranes Eyes PERRL, EOMs intact bilaterally and conjunctivae normal Neck supple and no JVD Resp normal respiratory effort, no retractions, no use of accessory muscles and clear to auscultation bilaterally Auscultation: Negative for crackles, rales, rhonchi or wheezes Cardio regular rate, regular rhythm, S1 normal heart sound, S2 normal heart sound and no murmurs GI soft to palpation, non-tender and non-distended; Negative for hepatosplenomegaly Extremity no clubbing, cyanosis or edema Skin no rashes or lesions noted Neuro no focal motor deficits and no sensory deficits noted Psych Mood & Affect: anxious and flat affect Results Lab / Micro Data Result Diagrams: 05/29/21 19:30 05/29/21 19:30 Labs: Laboratory Results - last 24 hr 05/29/21 19:30: WBC 7.4, RBC 4.06 L, Hgb 13.0, Hct 38.3 L, MCV 94.3 H, MCH 32.0, MCHC 33.9, RDW Std Deviation 48.4 H, RDW Coeff of Kalpana 13.9, Plt Count 220, MPV 10.9, Immature Gran % (Auto) 0.500, Neut % (Auto) 76.3 H, Lymph % (Auto) 12.9 L, [place] % (Auto) 8.3, Eos % (Auto) 0.9, Baso % (Auto) 1.1 H, Absolute Neuts (auto) 5.6, Absolute Lymphs (auto) 0.95, Nucleated RBC % 0 05/29/21 19:30: Sodium 141, Potassium 3.8, Chloride 102, Carbon Dioxide 29.0, Anion Gap 10, BUN 13, Creatinine 1.19, Estim Creat Clear Calc 71.63, Est GFR (MDRD) Af Amer 81, Est GFR (MDRD) Non-Af 67, BUN/Creatinine Ratio 10.9, Glucose 323 H, Calcium 8.2 L 05/29/21 19:30: Ethyl Alcohol 46.0 05/29/21 19:30: Salicylates 12.6, Acetaminophen < 2.0 L 05/29/21 19:30: Total Bilirubin 0.20, Direct Bilirubin 0.12, AST 33, ALT 23, Alkaline Phosphatase 105, Total Protein 6.7, Albumin 3.5, Globulin 3.2 05/29/21 19:45: Urine Opiates Screen NEGATIVE, Urine Methadone Screen NEGATIVE, Ur Barbiturates Screen NEGATIVE, Ur Phencyclidine Scrn NEGATIVE, Ur Amphetamines Screen NEGATIVE, MDMA (Ecstasy) Screen NEGATIVE, U Benzodiazepines Scrn NEGATIVE, Urine Cocaine Screen NEGATIVE, U Cannabinoids Screen NEGATIVE, Ur Drug Screen Comment Assessment & Plan Assessment/Plan (1) Alcohol intoxication: PLAN: 1. Acute alcohol withdrawal/chronic pancreatitis ? Continue with alcohol withdrawal protocol ? Have him follow-up with 180 as an outpatient when he is ready for discharge ? Last drink was likely yesterday says that he drinks 2, 40 ounce drinks a day, on the previous to that he presented with alcohol withdrawal about a week ago at that time he refused inpatient detox ? He does look like he is on Creon hopefully somebody can bring this in for him as it is not formulary 2. HTN/HLD ? Blood pressures are stable ? Continue with his home blood pressure medications ? Continue with Lipitor ? She did have a stress test at the end of April for chest pain, which was unremarkable 3. DM2 ? Blood sugar is slightly elevated, can you with home long-acting insulin ? Placed on sliding scale insulin ? Checks AC at bedtime, will make adjustments as necessary ? Hold metformin 4. GERD ? Stable ? Continue with PPI DVT: Ambulation Charges/Coding Visit Charges Inpatient E&M: 24098 Init Hosp L3
[2021-05-29 22:10] VITALS: BP 136/89; PULSE 107; RESP 18; TEMP 36.7; O2SAT 97; BMI 27.4
[2021-05-29 22:56] LABS: Bedside Glucose 192 mg/dL (74-106)
[2021-05-29 23:10] VITALS: PULSE 107
[2021-05-29] MEDS: Ramipril 10 MG Capsule PO (23:10)
[2021-05-29] MEDS: hydrALAZINE 25 MG Tablet PO (23:10)
[2021-05-29] MEDS: traZODone 100 MG Tablet PO (23:10)
[2021-05-29] MEDS: Phenobarbital 32.4 MG Tablet 64.8 MG PO (23:10)
[2021-05-29] MEDS: Insulin Lispro 100 UNIT/ML INSULN.PEN SC (23:12)
[2021-05-29] MEDS: Insulin Glargine-YFGN 100 UNIT/ML Pen 25 UNIT SC (23:12)
[2021-05-29 23:57] VITALS: PULSE 107
[2021-05-30] VITALS (10 sets, daily range): BP systolic 97–143; BP diastolic 50–93; PULSE 59–114; RESP 16–18; TEMP 36.5–37.2; O2SAT 95–100
[2021-05-30] MEDS: Phenobarbital 32.4 MG Tablet 64.8 MG PO ×3 (02:26→21:38)
[2021-05-30] MEDS: Creon 24,000 unit DR Capsule 1 CAP PO ×4 (06:35→21:38)
[2021-05-30] MEDS: hydrALAZINE 25 MG Tablet PO ×2 (06:35→21:37)
[2021-05-30 06:41] LABS: Bedside Glucose 159 mg/dL (74-106)
[2021-05-30 06:41] LABS: Bedside Glucose 64 mg/dL (74-106)
--- NOTE | 2021-05-30 07:00 | PCM.PN.HOSP ---
Subjective Subjective Patient is started drinking alcohol in college at the age of about 20. History of multiple relapses. Was sober for 1 year and then he started drinking back February 2021. Objective Data Objective Data Vital Signs: Vital Signs Temp Pulse Resp BP Pulse Ox 98.7 F 98 16 141/88 H 100 05/30/21 04:10 05/30/21 06:35 05/30/21 04:10 05/30/21 04:10 05/30/21 04:10 Oxygen Delivery Method Room Air Weight: 165 lb Body Mass Index (BMI) 27.4 Intake & Output: Intake and Output for Last 24 Hours 05/28/21 05/29/21 05/30/21 23:59 23:59 23:59 Intake Total 1000 / 1000 300 / 300 Balance 1000 / 1000 300 / 300 Lab / Micro Data Result Diagrams: 05/29/21 19:30 05/29/21 19:30 Labs: Laboratory Results - last 24 hr 05/29/21 19:30: WBC 7.4, RBC 4.06 L, Hgb 13.0, Hct 38.3 L, MCV 94.3 H, MCH 32.0, MCHC 33.9, RDW Std Deviation 48.4 H, RDW Coeff of [place] 13.9, Plt Count 220, MPV 10.9, Immature Gran % (Auto) 0.500, Neut % (Auto) 76.3 H, Lymph % (Auto) 12.9 L, [place] % (Auto) 8.3, Eos % (Auto) 0.9, Baso % (Auto) 1.1 H, Absolute Neuts (auto) 5.6, Absolute Lymphs (auto) 0.95, Nucleated RBC % 0 05/29/21 19:30: Sodium 141, Potassium 3.8, Chloride 102, Carbon Dioxide 29.0, Anion Gap 10, BUN 13, Creatinine 1.19, Estim Creat Clear Calc 71.63, Est GFR (MDRD) Af Amer 81, Est GFR (MDRD) Non-Af 67, BUN/Creatinine Ratio 10.9, Glucose 323 H, Calcium 8.2 L 05/29/21 19:30: Ethyl Alcohol 46.0 05/29/21 19:30: Salicylates 12.6, Acetaminophen < 2.0 L 05/29/21 19:30: Total Bilirubin 0.20, Direct Bilirubin 0.12, AST 33, ALT 23, Alkaline Phosphatase 105, Total Protein 6.7, Albumin 3.5, Globulin 3.2 05/29/21 19:45: Urine Opiates Screen NEGATIVE, Urine Methadone Screen NEGATIVE, Ur Barbiturates Screen NEGATIVE, Ur Phencyclidine Scrn NEGATIVE, Ur Amphetamines Screen NEGATIVE, MDMA (Ecstasy) Screen NEGATIVE, U Benzodiazepines Scrn NEGATIVE, Urine Cocaine Screen NEGATIVE, U Cannabinoids Screen NEGATIVE, Ur Drug Screen Comment 05/29/21 22:48: POC Glucose 192 H 05/30/21 06:01: POC Glucose 64 L 05/30/21 06:37: POC Glucose 159 H Physical Exam Narrative Seen and examined. Complains of mild tremors. Denies visual auditory hallucination. No seizure. Mild abdominal cramps and muscle cramps. Has anxiety and restlessness. Patient denies history of stigmata of chronic liver disease/cirrhosis including esophageal variceal bleeding, ascites. General: Alert, Oriented x3, Cooperative HEENT: Atraumatic, PERRLA, EOMI, Normocephalic Oral: No Gingival or Mucosal Lesions/ Ulcerations Neck: Supple, No JVD, Negative Carotid Bruits Lungs: Air entry diminished in bilateral lung bases. No crepitation/rhonchi Cardiovascular: Regular rate, Regular Rhythm, Normal S1, Normal S2, No murmurs Abdomen: Bowel Sounds Present, Soft, Non Tender, Non-Distended. No hepatomegaly. No splenomegaly. No palpable fluid thrill/ascites. : No renal angle tenderness. No suprapubic tenderness. Extremities: No edema, Capillary Refill Less than 3 Seconds Skin: No rashes, No breakdown Musculoskeletal: No Tenderness to Palpation of Joints or Extremities Neurological: Cranial nerves II-XII grossly intact, DTR 2+/4 and Symmetrical, Neuro grossly intact Psych/Mental Status: Flat affect. Anxious Assessment & Plan Assessment/Plan (1) Alcohol intoxication: PLAN: 1. Acute alcohol withdrawal with history of chronic alcohol use, dependence and multiple relapses: ? The patient is on phenobarbitone along with other adjunctive medications for acute alcohol withdrawal syndrome. CIWA score 6. Patient seen by [facility] family preservation caseworker follow-up with individual counselor at [facility] after discharge. ? Last drink was likely yesterday says that he drinks 2, 40 ounce drinks a day, on the previous to that he presented with alcohol withdrawal about a week ago at that time he refused inpatient detox ?Creon is changed to the hospital pharmacy formulary 05/30: Chronic alcoholic and chronic pancreatitis platelet count is above 200,000. Albumin 3.5. ALT AST normal. It was elevated in May 09, 2020. Right upper quadrant sonogram ordered 2. Hypertension and dyslipidemia: Blood pressure in normal range. Sinus tachycardia from acute alcohol withdrawal. BP is normal. ? Continue with his home blood pressure medications ? Continue with Lipitor ?The patient did have a stress test at the end of April for chest pain, which was unremarkable 3. DM2 ? Blood sugar is slightly elevated, can you with home long-acting insulin ? Placed on sliding scale insulin ? Checks AC at bedtime, will make adjustments as necessary ? Hold metformin 4. GERD ? Stable ? Continue with PPI DVT: Ambulation Charges/Coding Visit Charges Inpatient E&M: 69413 Subs Hosp L2
[2021-05-30] MEDS: hydrOXYzine PAM 25 MG Capsule 50 MG PO ×2 (08:24→21:43)
[2021-05-30] MEDS: Pantoprazole Sodium 40 MG Tablet PO (08:25)
[2021-05-30] MEDS: Glucerna Shake 120 ML LIQUID PO ×2 (08:25→16:37)
[2021-05-30] MEDS: Thiamine Hydrochloride 100 MG Tablet PO (08:26)
[2021-05-30] MEDS: Folic Acid 1 MG Tablet PO (08:26)
--- NOTE | 2021-05-30 08:41 | US_ITS ---
INDICATION: Chronic alcoholic hepatitis and chronic pancreatitis EXAMINATION: US Abdomen RUQ (limited) TECHNIQUE: Courtney-scale and color Doppler imaging was performed of the right upper abdominal quadrant. COMPARISON: None. Findings: The liver is diffusely homogenous with overall increased echogenicity. There is no evidence of contour nodularity. No focal hepatic mass is identified. The main portal vein is normal in size and patent demonstrating hepatopetal flow. The gallbladder is remarkable for mobile, layering stones, however is without evidence of wall thickening or pericholecystic fluid. Sonographic Hightower''s tenderness is not appreciated. There is no evidence of intrahepatic biliary ductal dilatation. The CBD is nondilated measuring 4 mm at the level of the yovana hepatis. The pancreas is mostly obscured by overlying bowel gas. Right kidney measures 11.1 cm in length. It is normal in echogenicity. No focal renal lesion is identified. There is no evidence of hydronephrosis. US/Abdomen Limited IMPRESSION: Hyperechoic liver without evidence of contour nodularity. Findings are nonspecific and may be consistent with sequelae of fatty infiltration or other forms of diffuse liver disease. No evidence of focal hepatic mass. Cholelithiasis. Electronically Signed: Samuel Bhakta MD at 17:02 EDT ,
[2021-05-30] MEDS: amLODIPine 5 MG Tablet PO (09:24)
[2021-05-30] MEDS: Ramipril 10 MG Capsule PO ×2 (09:24→21:38)
[2021-05-30] MEDS: Metoprolol(XL)Succ 100 MG Tablet PO (09:25)
[2021-05-30] MEDS: hydroCHLOROthiazide 12.5mg 12.5 MG PO (09:25)
[2021-05-30] MEDS: Acetaminophen 325 MG Tablet 650 MG PO ×2 (09:29→21:43)
--- NOTE | 2021-05-30 10:55 | ADDICTION ---
This story writer met with PT to conduct ASAM, MSE, AUDIT assessments and to plan for d/c. PT A+Ox4 and participated actively. All assessments completed and placed in PT's chart. PT plans to f/u with individual counselor at [facility] for follow-up counseling services. PT did not indicate a need for transportation post d/c from [facility].
[2021-05-30 11:20] LABS: Bedside Glucose 293 mg/dL (74-106)
[2021-05-30] MEDS: Insulin Lispro 100 UNIT/ML INSULN.PEN SC ×2 (11:59→21:39)
[2021-05-30 13:56] LABS: Bedside Glucose 23 mg/dL (74-106)
[2021-05-30] MEDS: Dextrose 10%-Water 250 ML 999 ML IV (13:57)
[2021-05-30 14:06] LABS: Bedside Glucose 51 mg/dL (74-106)
[2021-05-30] MEDS: 0.9% Saline Lock 10 ML Syringe IV ×2 (14:16→15:55)
[2021-05-30 14:26] LABS: Bedside Glucose 171 mg/dL (74-106)
[2021-05-30] MEDS: DEXTROSE IV (15:55)
[2021-05-30] MEDS: NACL IV (15:55)
[2021-05-30 16:01] LABS: Bedside Glucose 66 mg/dL (74-106)
[2021-05-30 16:35] LABS: Bedside Glucose 127 mg/dL (74-106)
[2021-05-30 17:45] LABS: Bedside Glucose 356 mg/dL (74-106)
[2021-05-30 18:31] LABS: Bedside Glucose 394 mg/dL (74-106)
[2021-05-30] MEDS: Atorvastatin Calcium 10 MG Tablet PO (21:37)
[2021-05-30] MEDS: Insulin Glargine-YFGN 100 UNIT/ML Pen 25 UNIT SC (21:39)
[2021-05-30] MEDS: traZODone 100 MG Tablet PO (21:43)
[2021-05-30 21:50] LABS: Bedside Glucose 327 mg/dL (74-106)
[2021-05-31] VITALS (7 sets, daily range): BP systolic 95–128; BP diastolic 56–74; PULSE 60–63; RESP 16; TEMP 36.5–36.9; O2SAT 96–97
[2021-05-31] MEDS: Phenobarbital 32.4 MG Tablet 64.8 MG PO ×6 (03:30→21:55)
[2021-05-31 03:46] LABS: Bedside Glucose 74 mg/dL (74-106)
[2021-05-31] MEDS: Creon 24,000 unit DR Capsule 1 CAP PO ×5 (06:43→21:54)
[2021-05-31] MEDS: hydrALAZINE 25 MG Tablet PO ×3 (06:43→21:54)
[2021-05-31 06:50] LABS: Bedside Glucose 124 mg/dL (74-106)
[2021-05-31] MEDS: Folic Acid 1 MG Tablet PO (08:33)
[2021-05-31] MEDS: Thiamine Hydrochloride 100 MG Tablet PO (08:34)
[2021-05-31] MEDS: Glucerna Shake 120 ML LIQUID PO ×3 (08:35→11:36)
--- NOTE | 2021-05-31 09:53 | PN.HOSP_ITS ---
Subjective Subjective Follow-up for acute alcohol withdrawal syndrome. Patient's symptoms of alcohol withdrawal has improved. Patient is walking on the hallway. Objective Data Objective Data Vital Signs: Vital Signs Temp Pulse Resp BP Pulse Ox 97.7 F L 60 16 107/69 97 05/31/21 03:26 05/31/21 06:43 05/31/21 03:26 05/31/21 06:43 05/31/21 03:26 Oxygen Delivery Method Room Air Weight: 165 lb 0.009 oz Body Mass Index (BMI) 27.4 Intake & Output: Intake and Output for Last 24 Hours 05/29/21 05/30/21 05/31/21 23:59 23:59 23:59 Intake Total 1000 / 1000 1350 / 1350 1100 / 1100 Balance 1000 / 1000 1350 / 1350 1100 / 1100 Lab / Micro Data Result Diagrams: 05/29/21 19:30 05/29/21 19:30 Labs: Laboratory Results - last 24 hr 05/30/21 11:06: POC Glucose 293 H 05/30/21 13:21: POC Glucose 51 L 05/30/21 13:45: POC Glucose 23 L* 05/30/21 14:20: POC Glucose 171 H 05/30/21 15:28: POC Glucose 66 L 05/30/21 16:30: POC Glucose 127 H 05/30/21 17:42: POC Glucose 356 H 05/30/21 18:25: POC Glucose 394 H 05/30/21 21:37: POC Glucose 327 H 05/31/21 03:39: POC Glucose 74 05/31/21 06:39: POC Glucose 124 H Radiography Diagnostic Testing: Radiology Impression Abdomen Ultrasound 05/30/21 08:41 IMPRESSION: Hyperechoic liver without evidence of contour nodularity. Findings are nonspecific and may be consistent with sequelae of fatty infiltration or other forms of diffuse liver disease. No evidence of focal hepatic mass. Cholelithiasis. Electronically Signed: Samuel Bhakta MD at 17:02 EDT , Physical Exam Narrative Seen and examined. Has mild anxiety. Patient denies history of stigmata of chronic liver disease/cirrhosis including esophageal variceal bleeding, ascites. General: Alert, Oriented x3, Cooperative HEENT: Atraumatic, PERRLA, EOMI, Normocephalic Oral: No Gingival or Mucosal Lesions/ Ulcerations Neck: Supple, No JVD, Negative Carotid Bruits Lungs: Air entry diminished in bilateral lung bases. No crepitation/rhonchi Cardiovascular: Regular rate, Regular Rhythm, Normal S1, Normal S2, No murmurs Abdomen: Bowel Sounds Present, Soft, Non Tender, Non-Distended. No hepa tomegaly. No splenomegaly. No palpable fluid thrill/ascites. : No renal angle tenderness. No suprapubic tenderness. Extremities: No edema, Capillary Refill Less than 3 Seconds Skin: No rashes, No breakdown Musculoskeletal: No Tenderness to Palpation of Joints or Extremities Neurological: Cranial nerves II-XII grossly intact, DTR 2+/4 and Symmetrical, Neuro grossly intact Psych/Mental Status: Flat affect. Anxious Const alert and oriented x3 General Appearance: cooperative HEENT normocephalic and moist oral mucous membranes Eyes PERRL, EOMs intact bilaterally and conjunctivae normal Neck supple and no JVD Resp normal respiratory effort, no retractions, no use of accessory muscles and clear to auscultation bilaterally Auscultation: Negative for crackles, rales, rhonchi or wheezes Cardio regular rate, regular rhythm, S1 normal heart sound, S2 normal heart sound and no murmurs GI soft to palpation, non-tender and non-distended; Negative for hepatosplenomegaly Extremity no clubbing, cyanosis or edema Skin no rashes or lesions noted Neuro no focal motor deficits and no sensory deficits noted Psych Mood & Affect: anxious and flat affect Assessment & Plan Assessment/Plan (1) Alcohol intoxication: PLAN: 1. Acute alcohol withdrawal with history of chronic alcohol use, dependence and multiple relapses: ? The patient is on phenobarbitone along with other adjunctive medications for acute alcohol withdrawal syndrome. CIWA score 6. Patient seen by [facility] correctional case manager follow-up with individual counselor at 180 after discharge. ? Last drink was likely yesterday says that he drinks 2, 40 ounce drinks a day, on the previous to that he presented with alcohol withdrawal about a week ago at that time he refused inpatient detox ?Creon is changed to the hospital pharmacy formulary 05/30: Chronic alcoholic and chronic pancreatitis platelet count is above 200,000. Albumin 3.5. ALT AST normal. It was elevated in May 09, 2020. Right upper quadrant sonogram ordered 05/31: Right upper quadrant sonogram reported hyperechoic liver without evidence of contusion nodularity. Labs also not consistent with cirrhosis. No evidence of focal hepatic mass. 2. Hypertension and dyslipidemia: Blood pressure in normal range. Sinus tachycardia from acute alcohol withdrawal. BP is normal. ? Continue with his home blood pressure medications ? Continue with Lipitor ?The patient did have a stress test at the end of April for chest pain, which was unremarkable 3. DM2 with labile glucose control. Patient had hypoglycemia yesterday while n.p.o. 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 Patient has to be started on D5W normal saline. After that glucose got very high patient also had decreased appetite which is better and improved now. Patient on Lantus insulin and will keep on sliding scale. Last glucose 124 in AM. ? Hold metformin 4. GERD ? Stable ? Continue with PPI DVT: Ambulation Charges/Coding Visit Charges Inpatient E&M: 47633 Subs Hosp L2
[2021-05-31] MEDS: Pantoprazole Sodium 40 MG Tablet PO (10:05)
[2021-05-31] MEDS: Metoprolol(XL)Succ 100 MG Tablet PO (10:06)
[2021-05-31] MEDS: amLODIPine 5 MG Tablet PO (10:07)
[2021-05-31] MEDS: hydroCHLOROthiazide 12.5mg 12.5 MG PO (10:15)
[2021-05-31] MEDS: Ramipril 10 MG Capsule PO ×2 (10:15→21:55)
[2021-05-31] MEDS: Insulin Lispro 100 UNIT/ML INSULN.PEN SC ×2 (11:33→16:23)
[2021-05-31] MEDS: Acetaminophen 325 MG Tablet 650 MG PO (11:36)
[2021-05-31 11:50] LABS: Bedside Glucose 188 mg/dL (74-106)
[2021-05-31 16:30] LABS: Bedside Glucose 307 mg/dL (74-106)
[2021-05-31] MEDS: Atorvastatin Calcium 10 MG Tablet PO (21:54)
[2021-05-31] MEDS: Insulin Glargine-YFGN 100 UNIT/ML Pen 25 UNIT SC (22:08)
[2021-05-31] MEDS: Insulin Lispro 100 UNIT/ML INSULN.PEN 20 UNIT SC (22:31)
[2021-06-01 01:20] LABS: Bedside Glucose 83 mg/dL (74-106)
[2021-06-01 01:20] LABS: Bedside Glucose 43 mg/dL (74-106)
[2021-06-01 02:05] VITALS: BP 97/53; PULSE 60; RESP 16; TEMP 37.1; O2SAT 96
[2021-06-01] MEDS: Phenobarbital 32.4 MG Tablet 64.8 MG PO ×2 (02:37→05:50)
[2021-06-01] MEDS: Creon 24,000 unit DR Capsule 1 CAP PO ×2 (05:50→09:42)
[2021-06-01 05:51] VITALS: PULSE 60
[2021-06-01] MEDS: hydrALAZINE 25 MG Tablet PO (05:51)
[2021-06-01] MEDS: Insulin Lispro 100 UNIT/ML INSULN.PEN SC (05:54)
[2021-06-01 06:00] LABS: Bedside Glucose 202 mg/dL (74-106)
[2021-06-01 07:00] LABS: Bedside Glucose > 500 mg/dL (74-106)
[2021-06-01 07:00] LABS: Bedside Glucose 476 mg/dL (74-106)
--- NOTE | 2021-06-01 07:32 | DCINST_ITS ---
Discharge Instructions Diet Discharge Diet: 1800 Calorie Control Diet and 2000 mg Sodium Diet Dressing / Incision Call your doctor if you observe: Fever of 101 or Higher, Coldness, Increased Pain, Numbness or Tingling, Change in Color, Inability to urinate, Inability to have a bowel movement, Shortness of breath, Dizziness, Fainting spells, Swelling in the ankles, Chest pain, Prolonged hiccupping and Increased palpitations (irregular heartbeat) Follow Up Care Test Results: Test results from this visit will be discussed in further detail at your follow-up appointment, if applicable. Discharge Plan Admission Admit Date/Time: 05/29/21 21:33 Primary Reason for Your Visit: Acute alcohol withdrawal syndrome, diabetes mellitus type 2 with labile Attending Provider: Refugio Rojas Primary Care Provider: Dk Pathak NP Instructions Additional Instructions / Restrictions: Follow-up in [facility] as an outpatient Discharge Orders/Prescriptions Prescriptions: New thiamine HCl (vitamin B1) [Vitamin B-1] 100 mg Tablet 100 mg PO DAILYCM Qty: 30 RF: 0 folic acid 1 mg Tablet 1 mg PO DAILY@0800 Qty: 30 RF: 2 Continued omeprazole 40 mg capsule,delayed release(DR/EC) 40 mg PO DAILY RF: 0 hydrochlorothiazide 12.5 mg tablet 12.5 mg PO DAILY RF: 0 atorvastatin 10 mg tablet 10 mg PO DAILY RF: 0 amlodipine 5 mg tablet 5 mg PO DAILY RF: 0 ramipril 10 mg capsule 10 mg PO BID RF: 0 hydralazine 25 mg tablet 25 mg PO TID RF: 0 metformin 500 MG tablet 500 mg PO BID RF: 0 ecdzmd-iasldrdv-lvdqgul 5,000-17,000- 24,000 unit capsule,delayed release(DR/EC) 1 cap PO 5X/DAY RF: 0 metoprolol succinate 100 mg tablet extended release 24 hr 100 mg PO DAILY Qty: 0 RF: 0 Changed insulin glargine 100 UNITS/ML insulin pen 20 units SC QHS Qty: 0 RF: 0 Referrals / Follow Up: Dk Pathak NP, [facility]NER-[facility] [Primary Care Provider] - In 1 Week (For good glucose control. Patient has labile diabetes mellitus type 2 with WIDE fluctuation in glucose) Disposition Disposition (needs filled in before D/C Order can be placed): Home, Self Care
--- NOTE | 2021-06-01 08:28 | ADDICTION ---
TW met with pt to f/u and offer supportive counseling. Pt stated he wants to f/u with counselor Teresa upon d/c. Clinician offered to schedule appt for him but pt stated he was unsure of his employment situation and schedule, and would schedule and appt with Teresa as soon as he knew his schedule.
[2021-06-01 09:40] VITALS: BP 142/86; PULSE 67; RESP 18; TEMP 36.9; O2SAT 99
[2021-06-01 09:42] VITALS: BP 142/86; PULSE 67
[2021-06-01] MEDS: amLODIPine 5 MG Tablet PO (09:42)
[2021-06-01] MEDS: Metoprolol(XL)Succ 100 MG Tablet PO (09:42)
[2021-06-01] MEDS: Ramipril 10 MG Capsule PO (09:42)
[2021-06-01] MEDS: hydroCHLOROthiazide 12.5mg 12.5 MG PO (09:43)
[2021-06-01] MEDS: Thiamine Hydrochloride 100 MG Tablet PO (09:43)
[2021-06-01] MEDS: Folic Acid 1 MG Tablet PO (09:43)
[2021-06-01] MEDS: Pantoprazole Sodium 40 MG Tablet PO (09:43)
--- NOTE | 2021-06-01 11:35 | PCM.DC.SUM ---
Providers Date of Admission: 05/29/21 Date of Discharge: 06/01/21 Primary Care Physician: Dk Pathak, SUSAN-C Reason For Visit: ETHOH WITHDRAWL Diagnosis Discharge Diagnosis (1) Alcohol intoxication: Status: Inactive Code(s): F10.929 - Alcohol use, unspecified with intoxication, unspecified Medications at Discharge Home Medications omeprazole 40 mg capsule,delayed release 40 mg PO DAILY 06/10/18 metformin 500 mg PO BID 01/21/19 xkucsl-bpllkwwf-gqyzgeg 1 cap PO 5X/DAY 09/08/19 amlodipine 5 mg tablet 5 mg PO DAILY 10/17/20 atorvastatin 10 mg tablet 10 mg PO DAILY 10/17/20 hydralazine 25 mg tablet 25 mg PO TID 10/17/20 hydrochlorothiazide 12.5 mg tablet 12.5 mg PO DAILY 10/17/20 ramipril 10 mg capsule 10 mg PO BID 10/17/20 folic acid 1 mg PO DAILY@0800 #30 tab 06/01/21 insulin glargine 20 units SC QHS #0 ml 06/01/21 metoprolol succinate 100 mg PO DAILY #0 tab 06/01/21 thiamine HCl (vitamin B1) [Vitamin B-1] 100 mg PO DAILYCM #30 tab 06/01/21 Hospital Course Summary of Care Provided Hospital Course: The patient was admitted with acute alcohol withdrawal syndrome. Blood alcohol level in ED was 46. Denies any substance use. His further hospital course as mentioned below 1. Acute alcohol withdrawal with history of chronic alcohol use, dependence and multiple relapses:The patient is on phenobarbitone along with other adjunctive medications for acute alcohol withdrawal syndrome. CIWA score 6. Patient seen by 180 top case assembler follow-up with individual counselor at 180 after discharge.Last drink was likely yesterday says that he drinks 2, 40 ounce drinks a day, on the previous to that he presented with alcohol withdrawal about a week ago at that time he refused inpatient detox ?Creon is changed to the hospital pharmacy formulary 05/30: Chronic alcoholic and chronic pancreatitis platelet count is above 200,000. Albumin 3.5. ALT AST normal. It was elevated in May 09, 2020. Right upper quadrant sonogram ordered 05/31: Right upper quadrant sonogram reported hyperechoic liver without evidence of contusion nodularity. Labs also not consistent with cirrhosis. No evidence of focal hepatic mass. 2. Hypertension and dyslipidemia: Blood pressure in normal range. Sinus tachycardia from acute alcohol withdrawal. BP is normal. ? Continue with his home blood pressure medications ? Continue with Lipitor ?The patient did have a stress test at the end of April for chest pain, which was unremarkable 3. DM2 with labile glucose control. Patient had hypoglycemia yesterday while n.p.o. 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 Patient has to be started on D5W normal saline. After that glucose got very high patient also had decreased appetite which is better and improved now. Patient on Lantus insulin and will keep on sliding scale. Last glucose 124 in AM. ? Hold metformin 4. GERD ? Stable ? Continue with PPI DVT: Ambulation Physical Exam Narrative Seen and examined. Patient heart rate and blood pressure control. Walking on the hallway General: Alert, Oriented x3, Cooperative HEENT: Atraumatic, PERRLA, EOMI, Normocephalic Oral: No Gingival or Mucosal Lesions/ Ulcerations Neck: Supple, No JVD, Negative Carotid Bruits Lungs: Air entry diminished in bilateral lung bases. No crepitation/rhonchi Cardiovascular: Regular rate, Regular Rhythm, Normal S1, Normal S2, No murmurs Abdomen: Bowel Sounds Present, Soft, Non Tender, Non-Distended. No hepatomegaly. No splenomegaly. No palpable fluid thrill/ascites. : No renal angle tenderness. No suprapubic tenderness. Extremities: No edema, Capillary Refill Less than 3 Seconds Skin: No rashes, No breakdown Musculoskeletal: No Tenderness to Palpation of Joints or Extremities Neurological: Cranial nerves II-XII grossly intact, DTR 2+/4 and Symmetrical, Neuro grossly intact Psych/Mental Status: Normal affect appropriate behavior. Weight / BMI Weight Weight: 165 lb 0.009 oz Body Mass Index (BMI) 27.4 ABG / Lab / Microbiology Data Result Diagrams: 05/29/21 19:30 05/29/21 19:30 Laboratory: Laboratory Results - last 24 hr 05/31/21 11:32: POC Glucose 188 H 05/31/21 16:22: POC Glucose 307 H 05/31/21 21:52: POC Glucose 476 H* 05/31/21 21:58: POC Glucose > 500 H* 06/01/21 00:56: POC Glucose 43 L* 06/01/21 01:15: POC Glucose 83 06/01/21 05:53: POC Glucose 202 H D/C Instructions Discharge Diet: 1800 Calorie Control Diet and 2000 mg Sodium Diet Call your doctor if you observe: Fever of 101 or Higher, Coldness, Increased Pain, Numbness or Tingling, Change in Color, Inability to urinate, Inability to have a bowel movement, Shortness of breath, Dizziness, Fainting spells, Swelling in the ankles, Chest pain, Prolonged hiccupping and Increased palpitations (irregular heartbeat) Meaningful Use Info Meaningful Use Diagnoses (Choose all that apply): None applicable Discharge Plan Admission Admit Date/Time: 05/29/21 21:33 Primary Reason for Your Visit: Acute alcohol withdrawal syndrome, diabetes mellitus type 2 with labile Attending Provider: Refugio Rojas Primary Care Provider: Dk Pathak NP Instructions Additional Instructions / Restrictions: Follow-up in [facility] as an outpatient Discharge Orders/Prescriptions Prescriptions: New thiamine HCl (vitamin B1) [Vitamin B-1] 100 mg Tablet 100 mg PO DAILYCM Qty: 30 RF: 0 folic acid 1 mg Tablet 1 mg PO DAILY@0800 Qty: 30 RF: 2 Continued omeprazole 40 mg capsule,delayed release(DR/EC) 40 mg PO DAILY RF: 0 hydrochlorothiazide 12.5 mg tablet 12.5 mg PO DAILY RF: 0 atorvastatin 10 mg tablet 10 mg PO DAILY RF: 0 amlodipine 5 mg tablet 5 mg PO DAILY RF: 0 ramipril 10 mg capsule 10 mg PO BID RF: 0 hydralazine 25 mg tablet 25 mg PO TID RF: 0 metformin 500 MG tablet 500 mg PO BID RF: 0 zjyxzp-vmfzrfic-xjfcrrl 5,000-17,000- 24,000 unit capsule,delayed release(DR/EC) 1 cap PO 5X/DAY RF: 0 metoprolol succinate 100 mg tablet extended release 24 hr 100 mg PO DAILY Qty: 0 RF: 0 Changed insulin glargine 100 UNITS/ML insulin pen 20 units SC QHS Qty: 0 RF: 0 Referrals / Follow Up: Dk Pathak VEGETABLE PREPARER, VEGETABLE PREPARER-C [Primary Care Provider] - In 1 Week (For good glucose control. Patient has labile diabetes mellitus type 2 with WIDE fluctuation in glucose) Disposition Disposition (needs filled in before D/C Order can be placed): Home, Self Care Charges/Coding Visit Charges Inpatient E&M: 03241 Disch Hosp
== END 2021-06-01 10:10 | disposition home or self-care (01) | DRG 897 ==
LOC: ED 20:12 → MS3 21:37
PROVIDERS: Admitting Provider Family Medicine; Emergency Provider Emergency Medicine; PCP Nurse Practitioner Family; Visit Provider Internal Medicine
DX: F10.239 Alcohol dependence with withdrawal, unspecified (principal); K86.1 Other chronic pancreatitis; E11.649 Type 2 diabetes mellitus with hypoglycemia without coma; I49.5 Sick sinus syndrome; Z79.4 Long term (current) use of insulin; I71.2 Thoracic aortic aneurysm, without rupture; F17.210 Nicotine dependence, cigarettes, uncomplicated; I10 Essential (primary) hypertension; E78.00 Pure hypercholesterolemia, unspecified; E78.5 Hyperlipidemia, unspecified; K76.89 Other specified diseases of liver; K21.9 Gastro-esophageal reflux disease without esophagitis; Z95.2 Presence of prosthetic heart valve; Z95.0 Presence of cardiac pacemaker; Z79.899 Other long term (current) drug therapy; Y90.9 Presence of alcohol in blood, level not specified
CPT/HCPCS: 76705; 80048; 80076; 80307; 80329; 82077; 82962; 85025; 97802; 99285; 99406; J7030; A4216; G0480

== ENCOUNTER 2021-09-30 13:34 | Emergency (ER) | payer OTHER, SELFPAY ==
[2021-09-30 13:34] VITALS: BP 91/54; PULSE 85; RESP 18; TEMP 36.2; O2SAT 97; BMI 21.0
[2021-09-30 14:08] VITALS: BP 93/77; PULSE 107; RESP 12; O2SAT 99
--- NOTE | 2021-09-30 14:11 | EKG12_ITS ---
Test Reason : CP Blood Pressure : / mmHG Vent. Rate : 115 BPM Atrial Rate : 115 BPM P-R Int : 160 ms QRS Dur : 130 ms QT Int : 364 ms P-R-T Axes : 015 -06 039 degrees QTc Int : 503 ms Sinus tachycardia with Premature atrial complexes Right bundle branch block Abnormal ECG Confirmed by MIMI FRANCISCO, TRISH ([id number]), publications editor MAILE BALDWIN ([id number]) on 10/01/2021 11:27:13 AM Referred By: EMELI Confirmed By:TRISH LE MD
--- NOTE | 2021-09-30 14:13 | EX.ED.DYSGE1 ---
HPI History of Present Illness Chief Complaint: General Illness Informant: patient Narrative Narrative: Patient presents with 2 weeks of mid chest upper pain. He states he just aches in his upper mid chest. It really never goes away. It does not get worse or better. Nothing really changes it. His are really all the time. He is not getting nausea vomiting diaphoresis or shortness of breath. He has some mild baseline dyspnea but that is chronic and completely unchanged. He also states that he just feels a little bit tired recently. The symptoms have coincided with several medication changes. 1, he was started on terbinafine for fungus under fingernails just before the symptoms. He has also been accidentally double dosing his hydrochlorothiazide and his atorvastatin because he has 2 bottles of the same medicines. He just realized that today. He has been doing this for about 2 to 3 weeks. Patient does have history of heart disease. He had surgery for an aneurysm, mechanical valve and then a porcine valve. He denies travel surgery immobilization personal family history of DVT or PE. He has no leg pain or swelling. PFSH PFSH Medical History Adrenal nodule Alcohol dependence Alcoholism Alcoholism in remission Aortic aneurysm Ascending aortic dissection (~2005) Cardiac pacemaker in situ (~06/2016) Diabetes mellitus, type II Essential hypertension Hiatal hernia HTN (hypertension) Left carotid bruit Non-sustained ventricular tachycardia Pacemaker Pleuritic chest pain Pure hypercholesterolemia Right bundle branch block (RBBB) Shortness of breath Sick sinus syndrome Smoker Substance abuse SVT (supraventricular tachycardia) Thoracic aortic aneurysm Tobacco use Home Medications omeprazole 40 mg capsule,delayed release 40 mg PO DAILY reflux 06/10/18 [History Last Taken 05/04/21] metformin 500 mg tablet 500 mg PO BID diabetes 01/21/19 [History Last Taken 05/04/21] amlodipine 5 mg tablet 5 mg PO DAILY 10/17/20 [History Last Taken 05/04/21] atorvastatin 10 mg tablet 10 mg PO DAILY 10/17/20 [History Last Taken 05/03/21] hydralazine 25 mg tablet 25 mg PO TID 10/17/20 [History Last Taken 05/04/21] hydrochlorothiazide 12.5 mg tablet 12.5 mg PO DAILY 10/17/20 [History Last Taken 05/03/21] ramipril 10 mg capsule 10 mg PO BID 10/17/20 [History Last Taken 05/04/21] dapagliflozin 10 mg tablet ([facility]) 10 mg PO DAILY 09/30/21 [History Last Taken Unknown] insulin detemir U-100 100 unit/mL (3 mL) subcutaneous pen 5 unit subcut DAILY 09/30/21 [History Last Taken Unknown] meloxicam 15 mg tablet 15 mg PO DAILY 09/30/21 [History Last Taken Unknown] terbinafine HCl 250 mg tablet 250 mg PO DAILY 09/30/21 [History Last Taken Unknown] Allergy/AdvReac Type Severity Reaction Status Date / Time No Known Allergies Allergy Verified 09/30/21 13:37 Family History Father CAD (coronary artery disease) Mother Dementia Surgical History H/O aortic valve replacement H/O cardiac catheterization History of aortic aneurysm repair (~2016) History of aortic valve replacement with bioprosthetic valve (~2016) History of cataract surgery History of hernia repair Social History Smoking Status: Current every day smoker tobacco type: cigarettes alcohol intake: former year quit: 2020 substance use type: former substance user caffeine: Yes Type: coffee Number of servings: 3 ROS ROS ED Constitutional Constitutional ED: Denies chills, fever(s), subjective or weight loss Eyes Eyes: Denies change in vision ENT ENT ED: Denies rhinorrhea or sore throat Cardiovascular Cardiovascular: Reports chest pain; Denies palpitations or racing heartbeat Respiratory/Chest Respiratory/Chest: Denies cough or dyspnea Gastrointestinal Gastrointestinal: Denies abdominal pain, nausea or vomiting Genitourinary Genitourinary ED: Denies dysuria or hematuria Musculoskeletal Musculoskeletal: Denies myalgias Integumentary Denies rash Neurologic Neurologic: Denies headache(s), paresthesias or weakness Psychiatric Psychiatric: Denies anxiety Endocrine Endocrinology: Denies polydipsia or polyuria Hematologic/Lymphatic Hematologic/Lymphatic: Denies anemia, easy bleeding or easy bruising Allergic/Immunologic Allergic/Immunologic ED: Denies urticaria EXAM Physical Exam Const Vital Signs: 09/30/21 13:34 09/30/21 14:08 09/30/21 14:53 Temperature 97.1 F L Temperature Source Temporal Pulse Rate 85 107 H 100 Respiratory Rate 18 12 18 Blood Pressure 91/54 L 93/77 112/81 H Blood Pressure Mean 66 82 91 Pulse Ox 97 99 97 Oxygen Delivery Method Room Air Room Air Room Air Positive well nourished and well developed General Appearance ED: well developed and NAD; Negative for cyanotic or diaphoretic HEENT Reports moist mucous membranes Eyes General Eye ED: Negative for scleral icterus Neck no lymphadenopathy and no JVD Chest Wall inspection of chest normal Chest Narrative: There is some reproducible chest wall tenderness. It does not completely reproduce his symptoms though. He has well-healed scars for his pacemaker, median sternotomy and right upper chest wall. Resp normal respiratory effort and clear to auscultation bilaterally Auscultation: Negative for rales, rhonchi or wheezes Cardio regular rate and regular rhythm; Negative for no murmurs GI normal to inspection, nondistended, normoactive bowel sounds and non-tender Palpation: soft Back/Spine no CVA tenderness Extremity normal to inspection General Extremety ED: Negative for edema or tenderness General Extremity: Negative for edema Neuro oriented x3 Psych mental status grossly normal Attitude: No agitated Skin no rashes or lesions noted MDM MDM MDM Narrative Medical decision making narrative: CBC's shows no marked abnormalities. Electrolytes do show some mildly low sodium and potassium along with slight elevation of creatinine. This is likely due to doubling of his hydrochlorothiazide for the last 2 to 3 weeks. Mild elevation of liver function test likely due to chronic alcohol use. Alcohol level was 141. Despite having a couple weeks of constant symptoms his troponin is 34. His chest x-ray shows no acute process. He is comfortable. He has no exertional symptoms at all. I think he is safe for discharge. He would prefer to go home and go to work tomorrow. I will give him potassium here and some IV fluids as I think he has gotten a bit dehydrated from his medication use. Lab Data Attestation: I reviewed the patient's lab results. Labs: Laboratory Results - last 24 hr 09/30/21 09/30/21 09/30/21 14:20 14:20 14:20 WBC 7.4 RBC 3.92 L Hgb 13.7 Hct 39.3 L MCV 100.3 H MCH 34.9 H MCHC 34.9 RDW Std Deviation 49.8 H RDW Coeff of [place] 13.5 Plt Count 191 MPV 10.4 Immature Gran % (Auto) 0.500 Neut % (Auto) 69.1 Lymph % (Auto) 22.0 [place] % (Auto) 7.3 Eos % (Auto) 0.4 Baso % (Auto) 0.7 Absolute Neuts (auto) 5.1 Absolute Lymphs (auto) 1.63 Nucleated RBC % 0 Sodium 135 L Potassium 3.2 L Chloride 97 L Carbon Dioxide 24.0 Anion Gap 14 BUN 12 Creatinine 1.38 H Estim Creat Clear Calc 55.84 Est GFR (MDRD) Af Amer 68 Est GFR (MDRD) Non-Af 56 L BUN/Creatinine Ratio 8.7 L Glucose 221 H Calcium 8.4 L Total Bilirubin 0.40 AST 98 H ALT 72 H Alkaline Phosphatase 128 H Troponin I High Sens 34 Total Protein 6.1 L Albumin 2.8 L Globulin 3.3 Albumin/Globulin Ratio 0.8 L Ethyl Alcohol 141.0 Radiography Diagnostic Testing: Clinical Impression(s) from Imaging Studies Chest X-Ray 09/30/21 14:19 IMPRESSION: Hyperinflation. Stable examination. Electronically Signed: Carlos Campos MD at 14:45 EDT , EKG Initial EKG: Comments: EKG done for chest pain read by me shows sinus rhythm with frequent PACs. There is right bundle branch block pattern. Overall rate 115. DC interval is normal. QRS duration and QTc is normal. I will try to obtain an old EKG but currently the system is blocking me from accessing those. Discharge Plan Triage Chief Complaint: General Illness Other Complaint: Chest Pain ED Provider: Wolfgang Ortiz Dx/Rx/DC Orders Clinical Impression: Dehydration, Chest pain, Acute hypokalemia, Alcohol intoxication, Accidental medication error Instructions: Dehydration, ED Chest Pain, Uncertain Cause Prescriptions: No Action omeprazole 40 mg capsule,delayed release(DR/EC) 40 mg PO DAILY hydrochlorothiazide 12.5 mg tablet 12.5 mg PO DAILY atorvastatin 10 mg tablet 10 mg PO DAILY amlodipine 5 mg tablet 5 mg PO DAILY ramipril 10 mg capsule 10 mg PO BID hydralazine 25 mg tablet 25 mg PO TID metformin 500 MG tablet 500 mg PO BID meloxicam 15 mg Tablet 15 mg PO DAILY terbinafine HCl 250 mg Tablet 250 mg PO DAILY Levemir Flexpen 100 unit/mL (3 mL) Insulin Pen 5 unit SUBCUT DAILY Farxiga 10 mg Tablet 10 mg PO DAILY Primary Care Provider: Dk Pathak NP Referrals: Dk Pathak NP, [employer]ERCING MILL OPERATOR-C [Primary Care Provider] - 3-5 Days Disposition Disposition: Home, Self Care Discharge Date/Time: 09/30/21 16:27
--- NOTE | 2021-09-30 14:19 | RAD_ITS ---
STUDY: X-RAY CHEST REASON FOR EXAM: Male, 61 years old. Chest pain. TECHNIQUE: Single AP portable view of the chest. COMPARISON: Comparison is made with prior study dated 05/04/2021. FINDINGS: Surgical clips are seen in the right axillary region. EKG electrodes are seen. Hyperinflation. Stable mild increased markings in the lingular segment of the left upper lobe. There is no demonstrated pleural abnormality. Sternal cerclage wires and vascular clips are present from a prior sternotomy and coronary artery bypass graft procedure (CABG). A left-sided dual chamber pacemaker is seen. Normal mediastinum and akbar. Normal visualized pulmonary arteries. There is atherosclerotic calcification of the aortic arch with tortuosity. Normal visualized thoracic spine. Normal visualized ribs, clavicles, and shoulders. There is no demonstrated abnormality of the visualized soft tissue structures of the upper abdomen. RAD/Chest 1 View (Portable) IMPRESSION: Hyperinflation. Stable examination. Electronically Signed: Carlos Campos MD at 14:45 EDT ,
[2021-09-30 14:25] LABS: Absolute Lymphocyte Count 1.63 X10^3/uL (0.83-4.51); Absolute Neutrophil Count 5.1 X10^3/uL (2.0-7.7); Basophil# 0.05 X10^3/uL; Basophil% 0.7 % (0-1); Eosinophil# 0.03 X10^3/uL; Eosinophils% 0.4 % (0-5); Hematocrit 39.3 % (40-54); Hemoglobin 13.7 g/dL (13.0-16.5); Lymphocyte # 1.63 X10^3/ul (0.83-4.51); Mean Corp Hgb Conc 34.9 g/dL (32-36); Mean Corpuscular Hgb 34.9 pg (27.0-32.0); Mean Corpuscular Volume 100.3 fL (80-94); Mean Platelet Vol. 10.4 fl (6.2-12.0); Monocyte# 0.54 X10^3/uL; Monocyte% 7.3 % (0-10); NRBC Flagged by Analyzer 0 % (0-5); Neutrophil # 5.13 X10^3/uL (2.7-7.7); Neutrophil % 69.1 % (47-70); Platelet Count 191 K/mm3 (150-450); RBC Distribution Width CV 13.5 % (11.6-14.6); RBC Distribution Width SD 49.8 fl (35.1-43.9); Red Blood Count 3.92 M/mm3 (4.6-6.2); White Blood Count 7.4 K/mm3 (4.4-11.0)
[2021-09-30 14:45] LABS: ALB/GLOB Ratio 0.8 RATIO (0.9-2.4); AST(SGOT) 98 U/L (15-37); Alanine Aminotransfer ALT/SGPT 72 U/L (16-61); Albumin, Serum 2.8 g/dL (3.2-5.0); Alkaline Phosphatase 128 U/L (45-117); Anion Gap 14 (5-15); BUN 12 mg/dL (7-18); BUN/Creat Ratio 8.7 RATIO (10-20); Calcium,Total 8.4 mg/dL (8.5-10.1); Chloride 97 mmol/L (98-107); Creatinine, Serum 1.38 mg/dL (0.70-1.30); EST Glomerular Filtration Rate 56 mL/min (>60); Est Glom Filt Rate - Afr Amer 68 mL/min (>60); Estimated Creatinine Clearance 55.84 ml/min; Globulin 3.3 g/dL (2.2-4.2); Glucose 221 mg/dL (74-106); Potassium 3.2 mmol/L (3.5-5.1); Protein, Total 6.1 g/dL (6.4-8.2); Sodium Level 135 mmol/L (136-145); Troponin-I HS 34 pg/mL (3.0-78.0)
[2021-09-30 14:53] VITALS: BP 112/81; PULSE 100; RESP 18; O2SAT 97
[2021-09-30] MEDS: 0.9% Normal Saline 1,000 ML 999 ML IV (14:58)
[2021-09-30] MEDS: Potassium Chloride Oral Tablet 20 MEQ 40 MEQ PO (14:58)
== END 2021-09-30 16:27 | disposition home or self-care (01) ==
PROVIDERS: Emergency Provider Emergency Medicine; PCP Nurse Practitioner Family; Visit Provider Emergency Medicine
DX: E86.0 Dehydration (principal); F10.929 Alcohol use, unspecified with intoxication, unspecified; I71.2 Thoracic aortic aneurysm, without rupture; I49.5 Sick sinus syndrome; E11.9 Type 2 diabetes mellitus without complications; Z79.4 Long term (current) use of insulin; E78.00 Pure hypercholesterolemia, unspecified; I10 Essential (primary) hypertension; Z95.0 Presence of cardiac pacemaker; Z79.899 Other long term (current) drug therapy; Z95.2 Presence of prosthetic heart valve; F17.210 Nicotine dependence, cigarettes, uncomplicated; E87.6 Hypokalemia; Y90.9 Presence of alcohol in blood, level not specified; I49.1 Atrial premature depolarization; I45.10 Unspecified right bundle-branch block; T50.2X1A Poisoning by carbonic-anhydrase inhibitors, benzothiadiazides and other diuretics, accidental (unintentional), initial encounter; T46.6X1A Poisoning by antihyperlipidemic and antiarteriosclerotic drugs, accidental (unintentional), initial encounter
CPT/HCPCS: 71045; 80053; 82077; 84484; 85025; 93005; 96360; 99285

== ENCOUNTER 2021-10-06 12:19 | Emergency (ER) | payer OTHER, SELFPAY ==
[2021-10-06 12:21] VITALS: BP 112/76; PULSE 108; RESP 18; O2SAT 98
[2021-10-06 12:22] VITALS: TEMP 35.7; BMI 20.1
--- NOTE | 2021-10-06 13:15 | EDS_ITS ---
HPI <Dr. Chris Davila, DO - Last Filed: 10/07/21 23:58> HPI - Psych History of Present Illness Chief Complaint: Suicidal Informant: patient Narrative Narrative: Brought in by EMS from home for suicidal ideations. Daily alcohol use. Reports last drink was yesterday. He states he called stating I just want to . He states he does not want to hurt himself specifically want somebody else to do it. He lost his son 6 years ago in October for overdose. He states he wants to be with his son. He states he was hospitalized for some similar in [place] 5 years ago. Unclear of any diagnosis of depression. Significant coronary history pacemaker cardiac bypass. Denies chest pains shortness of breath vomiting or diarrhea. He states he gets morning tremors discussion of any withdrawal seizures he would not comment. No other complaints currently. He states previous drug use however completely stopped after her son . Denies auditory or visual hallucinations. Prior similar symptoms: Yes [facility] <Dr. Chris Davila, DO - Last Filed: 10/07/21 23:58> [facility] Medical History Adrenal nodule Alcohol dependence Alcoholism Alcoholism in remission Aortic aneurysm Ascending aortic dissection (~2005) Cardiac pacemaker in situ (~06/2016) Diabetes mellitus, type II Essential hypertension Hiatal hernia HTN (hypertension) Left carotid bruit Non-sustained ventricular tachycardia Pacemaker Pleuritic chest pain Pure hypercholesterolemia Right bundle branch block (RBBB) Shortness of breath Sick sinus syndrome Smoker Substance abuse SVT (supraventricular tachycardia) Thoracic aortic aneurysm Tobacco use Home Medications omeprazole 40 mg capsule,delayed release 40 mg PO DAILY reflux 06/10/18 [History Last Taken 05/04/21] metformin 500 mg tablet 500 mg PO BID diabetes 01/21/19 [History Last Taken 05/04/21] amlodipine 5 mg tablet 5 mg PO DAILY 10/17/20 [History Last Taken 05/04/21] atorvastatin 10 mg tablet 10 mg PO DAILY 10/17/20 [History Last Taken 05/03/21] hydralazine 25 mg tablet 25 mg PO TID 10/17/20 [History Last Taken 05/04/21] hydrochlorothiazide 12.5 mg tablet 12.5 mg PO DAILY 10/17/20 [History Last Taken 05/03/21] ramipril 10 mg capsule 10 mg PO BID 10/17/20 [History Last Taken 05/04/21] dapagliflozin 10 mg tablet (Dimasxiga) 10 mg PO DAILY 09/30/21 [History Last Taken Unknown] insulin detemir U-100 100 unit/mL (3 mL) subcutaneous pen 5 unit subcut DAILY 09/30/21 [History Last Taken Unknown] meloxicam 15 mg tablet 15 mg PO DAILY 09/30/21 [History Last Taken Unknown] terbinafine HCl 250 mg tablet 250 mg PO DAILY 09/30/21 [History Last Taken Unknown] Allergy/AdvReac Type Severity Reaction Status Date / Time No Known Allergies Allergy Verified 10/06/21 12:20 Family History Father CAD (coronary artery disease) Mother Dementia Surgical History H/O aortic valve replacement H/O cardiac catheterization History of aortic aneurysm repair (~2016) History of aortic valve replacement with bioprosthetic valve (~2016) History of cataract surgery History of hernia repair Social History Smoking Status: Current every day smoker tobacco type: cigarettes alcohol intake: former year quit: 2020 substance use type: former substance user caffeine: Yes Type: coffee Number of servings: 3 ROS <Dr. Chris Davila DO - Last Filed: 10/07/21 23:58> ROS ED Constitutional Constitutional ED: Denies chills, fever(s) or sweats Eyes Eyes: Denies change in vision ENT ENT ED: Denies dysphagia or sore throat Cardiovascular Cardiovascular: Denies chest pain, leg edema, palpitations or racing heartbeat Respiratory/Chest Respiratory/Chest: Denies cough, dyspnea or dyspnea on exertion Gastrointestinal Gastrointestinal: Denies abdominal pain, diarrhea, nausea or vomiting Genitourinary Genitourinary ED: Denies dysuria, hematuria or urinary frequency Musculoskeletal Musculoskeletal: Denies back pain, extremity pain or neck pain Integumentary Denies rash or wounds Neurologic Neurologic: Denies headache(s), paresthesias or weakness Psychiatric Psychiatric: Reports depression and suicidal ideation EXAM <Dr. Chris Davila DO - Last Filed: 10/07/21 23:58> Physical Exam Const Vital Signs: 10/06/21 12:21 10/06/21 12:22 10/06/21 18:43 Temperature 96.2 F L 98.0 F Temperature Source Temporal Temporal Pulse Rate 108 H 125 H Respiratory Rate 18 18 Blood Pressure 112/76 99/68 Blood Pressure Mean 88 78 Pulse Ox 98 96 Oxygen Delivery Method Room Air Room Air Room Air 10/06/21 20:56 10/06/21 22:00 Temperature Temperature Source Pulse Rate 76 104 H Respiratory Rate 18 16 Blood Pressure Blood Pressure Mean Pulse Ox 94 95 Oxygen Delivery Method Room Air Positive well nourished and well developed Constitutional Narrative: Intoxicated with smell of alcohol, he is anxious, however cooperative, answering questions. General Appearance ED: well developed and NAD HEENT Reports moist mucous membranes normocephalic and atraumatic Eyes PERRL, EOMs intact bilaterally and conjunctivae normal General Eye ED: Yes normal appearance of both eyes Neck no lymphadenopathy and supple General: Negative for tenderness Chest Wall Chest: Negative for tenderness Resp normal respiratory effort and normal air movement Effort and Inspection: symmetric chest movement; Negative for respiratory distress Cardio regular rate, regular rhythm and no murmurs Rate: tachycardic Peripheral Pulses: pulses 2+ throughout GI normal to inspection, nondistended, normoactive bowel sounds and non-tender Palpation: Negative for guarding or rebound tenderness present Back/Spine no CVA tenderness and no thoracic nor lumbar tenderness Extremity normal to inspection General Extremety ED: Negative for edema or tenderness General Extremity: Negative for edema Neuro oriented x3 and no sensory deficits noted Sensorium / Orientation: awake and alert Skin no rashes or lesions noted and no wounds <Dr. Elvis Donovan MD - Last Filed: 10/06/21 23:30> Physical Exam Const Vital Signs: 10/06/21 12:21 10/06/21 12:22 10/06/21 18:43 Temperature 96.2 F L 98.0 F Temperature Source Temporal Temporal Pulse Rate 108 H 125 H Respiratory Rate 18 18 Blood Pressure 112/76 99/68 Blood Pressure Mean 88 78 Pulse Ox 98 96 Oxygen Delivery Method Room Air Room Air Room Air 10/06/21 20:56 10/06/21 22:00 Temperature Temperature Source Pulse Rate 76 104 H Respiratory Rate 18 16 Blood Pressure Blood Pressure Mean Pulse Ox 94 95 Oxygen Delivery Method Room Air MDM <Dr. Chris Davila DO - Last Filed: 10/07/21 23:58> MDM MDM Narrative Medical decision making narrative: Patient clinically intoxicated and anxious with suicidal ideations. Was given p.o. Ativan urine was obtained prior. Talk screen negative. Alcohol at 273 at 1310. Labs are stable. We will need to wait till more clinically sober for reevaluation and disposition. 1740: Patient clinically more awake, he is eating as I reevaluate him. He will be evaluated by case management for disposition. Discussion I discussed with him if he wants assistance with alcohol detoxification. He states he wants to think about this and will decide after evaluation by case management. Repeat alcohol level was obtained. Repeat alcohol level 7 hours after initial is 107. Crisis would not see patient until his alcohol level was below 100. They have been made aware of him. They are presently evaluating another patient. Once they are done evaluate outpatient they will evaluate Mr. Melendrez Patient was evaluated by the clinic licensed practical nurse on-call for crisis. Plan a safety plan and urgent outpatient follow-up. Patient declined alcohol detox. Lab Data Attestation: I reviewed the patient's lab results. Labs: Laboratory Results - last 24 hr 10/06/21 10/06/21 10/06/21 12:30 13:10 13:10 WBC 4.3 L RBC 3.85 L Hgb 13.6 Hct 38.9 L MCV 101.0 H MCH 35.3 H MCHC 35.0 RDW Std Deviation 52.8 H RDW Coeff of [place] 14.3 Plt Count 232 MPV 9.6 Immature Gran % (Auto) 0.500 Neut % (Auto) 40.4 L Lymph % (Auto) 40.5 [place] % (Auto) 13.9 H Eos % (Auto) 2.6 Baso % (Auto) 2.1 H Absolute Neuts (auto) 1.7 L Absolute Lymphs (auto) 1.72 Nucleated RBC % 0 Sodium 144 Potassium 3.4 L Chloride 108 H Carbon Dioxide 28.0 Anion Gap 8 BUN 5 L Creatinine 1.16 Estim Creat Clear Calc 63.62 Est GFR (MDRD) Af Amer 83 Est GFR (MDRD) Non-Af 68 BUN/Creatinine Ratio 4.3 L Glucose 236 H Calcium 8.5 Urine Opiates Screen NEGATIVE Urine Methadone Screen NEGATIVE Ur Barbiturates Screen NEGATIVE Ur Phencyclidine Scrn NEGATIVE Ur Amphetamines Screen NEGATIVE MDMA (Ecstasy) Screen NEGATIVE U Benzodiazepines Scrn NEGATIVE Urine Cocaine Screen NEGATIVE U Cannabinoids Screen NEGATIVE Ur Drug Screen Comment Ethyl Alcohol POC Glucose 10/06/21 10/06/21 10/06/21 13:10 20:50 22:04 WBC RBC Hgb Hct MCV MCH MCHC RDW Std Deviation RDW Coeff of [place] Plt Count MPV Immature Gran % (Auto) Neut % (Auto) Lymph % (Auto) [place] % (Auto) Eos % (Auto) Baso % (Auto) Absolute Neuts (auto) Absolute Lymphs (auto) Nucleated RBC % Sodium Potassium Chloride Carbon Dioxide Anion Gap BUN Creatinine Estim Creat Clear Calc Est GFR (MDRD) Af Amer Est GFR (MDRD) Non-Af BUN/Creatinine Ratio Glucose Calcium Urine Opiates Screen Urine Methadone Screen Ur Barbiturates Screen Ur Phencyclidine Scrn Ur Amphetamines Screen MDMA (Ecstasy) Screen U Benzodiazepines Scrn Urine Cocaine Screen U Cannabinoids Screen Ur Drug Screen Comment Ethyl Alcohol 273.0 107.0 POC Glucose 211 H <Dr. Elvis Donovan MD - Last Filed: 10/06/21 23:30> MDM MDM Narrative Medical decision making narrative: Patient clinically intoxicated and anxious with suicidal ideations. Was given p.o. Ativan urine was obtained prior. Talk screen negative. Alcohol at 273 at 1310. Labs are stable. We will need to wait till more clinically sober for reevaluation and disposition. 1740: Patient clinically more awake, he is eating as I reevaluate him. He will be evaluated by case management for disposition. Discussion I discussed with him if he wants assistance with alcohol detoxification. He states he wants to think about this and will decide. After evaluation. Repeat alcohol level was obtained. Repeat alcohol level 7 hours after initial is 107. Crisis would not see patient until his alcohol level was below 100. They have been made aware of him. They are presently evaluating another patient. Once they are done evaluate outpatient they will evaluate Mr. Melendrez Patient was evaluated by the clinic licensed practical nurse on-call for crisis. Plan a safety plan and urgent outpatient follow-up. Patient declined alcohol detox. Lab Data Labs: Laboratory Results - last 24 hr 10/06/21 10/06/21 10/06/21 12:30 13:10 13:10 WBC 4.3 L RBC 3.85 L Hgb 13.6 Hct 38.9 L MCV 101.0 H MCH 35.3 H MCHC 35.0 RDW Std Deviation 52.8 H RDW Coeff of [place] 14.3 Plt Count 232 MPV 9.6 Immature Gran % (Auto) 0.500 Neut % (Auto) 40.4 L Lymph % (Auto) 40.5 [place] % (Auto) 13.9 H Eos % (Auto) 2.6 Baso % (Auto) 2.1 H Absolute Neuts (auto) 1.7 L Absolute Lymphs (auto) 1.72 Nucleated RBC % 0 Sodium 144 Potassium 3.4 L Chloride 108 H Carbon Dioxide 28.0 Anion Gap 8 BUN 5 L Creatinine 1.16 Estim Creat Clear Calc 63.62 Est GFR (MDRD) Af Amer 83 Est GFR (MDRD) Non-Af 68 BUN/Creatinine Ratio 4.3 L Glucose 236 H Calcium 8.5 Urine Opiates Screen NEGATIVE Urine Methadone Screen NEGATIVE Ur Barbiturates Screen NEGATIVE Ur Phencyclidine Scrn NEGATIVE Ur Amphetamines Screen NEGATIVE MDMA (Ecstasy) Screen NEGATIVE U Benzodiazepines Scrn NEGATIVE Urine Cocaine Screen NEGATIVE U Cannabinoids Screen NEGATIVE Ur Drug Screen Comment Ethyl Alcohol POC Glucose 10/06/21 10/06/21 10/06/21 13:10 20:50 22:04 WBC RBC Hgb Hct MCV MCH MCHC RDW Std Deviation RDW Coeff of [place] Plt Count MPV Immature Gran % (Auto) Neut % (Auto) Lymph % (Auto) [place] % (Auto) Eos % (Auto) Baso % (Auto) Absolute Neuts (auto) Absolute Lymphs (auto) Nucleated RBC % Sodium Potassium Chloride Carbon Dioxide Anion Gap BUN Creatinine Estim Creat Clear Calc Est GFR (MDRD) Af Amer Est GFR (MDRD) Non-Af BUN/Creatinine Ratio Glucose Calcium Urine Opiates Screen Urine Methadone Screen Ur Barbiturates Screen Ur Phencyclidine Scrn Ur Amphetamines Screen MDMA (Ecstasy) Screen U Benzodiazepines Scrn Urine Cocaine Screen U Cannabinoids Screen Ur Drug Screen Comment Ethyl Alcohol 273.0 107.0 POC Glucose 211 H Discharge Plan Triage Chief Complaint: Suicidal Other Complaint: ETOH Intox ED Provider: Chris Davila Dx/Rx/DC Orders Clinical Impression: Alcohol intoxication, Depression with suicidal ideation Instructions: CONTRACT, No Harm, ED Depression, ED Alcohol Intoxication, ED Alcohol Abuse Prescriptions: No Action omeprazole 40 mg capsule,delayed release(DR/EC) 40 mg PO DAILY hydrochlorothiazide 12.5 mg tablet 12.5 mg PO DAILY atorvastatin 10 mg tablet 10 mg PO DAILY amlodipine 5 mg tablet 5 mg PO DAILY ramipril 10 mg capsule 10 mg PO BID hydralazine 25 mg tablet 25 mg PO TID metformin 500 MG tablet 500 mg PO BID meloxicam 15 mg Tablet 15 mg PO DAILY terbinafine HCl 250 mg Tablet 250 mg PO DAILY Levemir Flexpen 100 unit/mL (3 mL) Insulin Pen 5 unit SUBCUT DAILY Farxiga 10 mg Tablet 10 mg PO DAILY Primary Care Provider: Dk Pathak NP Referrals: Counseling,Center [Group of Physicians] - As soon as possible Dk Pathak NP, [employer] [Primary Care Provider] - Disposition Disposition: Home, Self Care Discharge Date/Time: 10/06/21 23:51
[2021-10-06 13:16] LABS: Amphetamine Urine VISTA NEGATIVE (<1000 ng/mL); Barbiturate Urine VISTA NEGATIVE (< 200 ng/mL); Benzodiazepine Urine VISTA NEGATIVE (< 200 ng/mL); Cocaine Urine VISTA NEGATIVE (< 300 ng/mL); Ecstacy Urine VISTA NEGATIVE (< 500 ng/mL); Methadone Urine VISTA NEGATIVE (< 300 ng/mL); PCP Urine VISTA NEGATIVE (< 25 ng/mL); THC Urine VISTA NEGATIVE (< 50 ng/mL); Vista UDS pH Range 7
[2021-10-06 13:19] LABS: Absolute Lymphocyte Count 1.72 X10^3/uL (0.83-4.51); Absolute Neutrophil Count 1.7 X10^3/uL (2.0-7.7); Basophil# 0.09 X10^3/uL; Basophil% 2.1 % (0-1); Eosinophil# 0.11 X10^3/uL; Eosinophils% 2.6 % (0-5); Hematocrit 38.9 % (40-54); Hemoglobin 13.6 g/dL (13.0-16.5); Lymphocyte # 1.72 X10^3/ul (0.83-4.51); Lymphocyte % 40.5 % (19-41); Mean Corpuscular Hgb 35.3 pg (27.0-32.0); Mean Platelet Vol. 9.6 fl (6.2-12.0); Monocyte# 0.59 X10^3/uL; Monocyte% 13.9 % (0-10); NRBC Flagged by Analyzer 0 % (0-5); Neutrophil # 1.72 X10^3/uL (2.7-7.7); Neutrophil % 40.4 % (47-70); Platelet Count 232 K/mm3 (150-450); RBC Distribution Width CV 14.3 % (11.6-14.6); RBC Distribution Width SD 52.8 fl (35.1-43.9); Red Blood Count 3.85 M/mm3 (4.6-6.2); White Blood Count 4.3 K/mm3 (4.4-11.0)
[2021-10-06 13:31] LABS: Anion Gap 8 (5-15); BUN 5 mg/dL (7-18); BUN/Creat Ratio 4.3 RATIO (10-20); Calcium,Total 8.5 mg/dL (8.5-10.1); Chloride 108 mmol/L (98-107); Creatinine, Serum 1.16 mg/dL (0.70-1.30); EST Glomerular Filtration Rate 68 mL/min (>60); Est Glom Filt Rate - Afr Amer 83 mL/min (>60); Estimated Creatinine Clearance 63.62 ml/min; Glucose 236 mg/dL (74-106); Potassium 3.4 mmol/L (3.5-5.1); Sodium Level 144 mmol/L (136-145)
--- NOTE | 2021-10-06 14:33 | ED.RN ---
MARIANA RENO CALLED FOR UPDATES. PER PT WE HAVE PERMISSION TO TALK TO HER. HER NUMBER IS [phone]. ROWDY GIVEN UPDATE ON PT CONDITION
[2021-10-06] MEDS: LORazepam 1 MG Tablet 2 MG PO ×2 (14:46→22:05)
[2021-10-06 18:43] VITALS: BP 99/68; PULSE 125; RESP 18; TEMP 36.7; O2SAT 96
--- NOTE | 2021-10-06 19:21 | CM.ED ---
BLANKA called Alison at Crisis and advised that crisis will need to see patient. [facility] SPEARS
[2021-10-06 20:56] VITALS: PULSE 76; RESP 18; O2SAT 94
[2021-10-06 22:00] VITALS: PULSE 104; RESP 16; O2SAT 95
[2021-10-06 22:26] LABS: Bedside Glucose 211 mg/dL (74-106)
[2021-10-06 23:34] VITALS: BP 114/76; PULSE 100; RESP 18; O2SAT 95
== END 2021-10-06 23:51 | disposition home or self-care (01) ==
PROVIDERS: Emergency Medicine; Emergency Provider Emergency Medicine; PCP Nurse Practitioner Family; Visit Provider Emergency Medicine
DX: R45.851 Suicidal ideations (principal); F10.129 Alcohol abuse with intoxication, unspecified; I71.2 Thoracic aortic aneurysm, without rupture; I49.5 Sick sinus syndrome; E11.9 Type 2 diabetes mellitus without complications; Z79.4 Long term (current) use of insulin; Z95.0 Presence of cardiac pacemaker; F32.A Depression, unspecified; E78.00 Pure hypercholesterolemia, unspecified; F17.210 Nicotine dependence, cigarettes, uncomplicated; I10 Essential (primary) hypertension; Z79.899 Other long term (current) drug therapy; Z95.2 Presence of prosthetic heart valve; Y90.9 Presence of alcohol in blood, level not specified
CPT/HCPCS: 80048; 80307; 82077; 82962; 85025; 99285

== ENCOUNTER 2021-11-05 16:17 | Inpatient (IN) | payer OTHER, SELFPAY ==
[2021-11-05] VITALS (7 sets, daily range): BP systolic 80–116; BP diastolic 42–82; PULSE 58–108; RESP 16–18; TEMP 36.4–36.8; O2SAT 93–100; BMI 24.4; BMI 21.3
--- NOTE | 2021-11-05 16:32 | EX.ED.SAOD ---
HPI History of Present Illness Chief Complaint: Substance Abuse Detail of Chief Complaint: Requesting detox from alcohol Informant: patient Narrative Narrative: Patient presents to the emergency department with complaint of needing help to detox from alcohol. Patient has history of alcohol abuse. He normally drinks beer. Patient last drink prior to arrival in the emergency department. Patient tells me he gets 12% beer and drinks 2 a day. Patient states has been losing weight and every time he tries to eat or drink he throws up. He denies recent illness otherwise. Patient has multiple medical problems including diabetes, hypertension, cholesterol, and history of AAA repair and aortic valve replacement. Patient states that he has been in touch with [facility] and was referred to the emergency department to be admitted for initial detox. Prior similar symptoms: Yes PFSH PFSH Medical History Adrenal nodule Alcohol dependence Alcoholism Alcoholism in remission Aortic aneurysm Ascending aortic dissection (~2005) Cardiac pacemaker in situ (~06/2016) Diabetes mellitus, type II Essential hypertension Hiatal hernia HTN (hypertension) Left carotid bruit Non-sustained ventricular tachycardia Pacemaker Pleuritic chest pain Pure hypercholesterolemia Right bundle branch block (RBBB) Shortness of breath Sick sinus syndrome Smoker Substance abuse SVT (supraventricular tachycardia) Thoracic aortic aneurysm Tobacco use Home Medications omeprazole 40 mg capsule,delayed release 40 mg PO DAILY reflux 06/10/18 [History Last Taken 05/04/21] metformin 500 mg tablet 500 mg PO BID diabetes 01/21/19 [History Last Taken 05/04/21] amlodipine 5 mg tablet 5 mg PO DAILY 10/17/20 [History Last Taken 05/04/21] atorvastatin 10 mg tablet 10 mg PO DAILY 10/17/20 [History Last Taken 05/03/21] hydralazine 25 mg tablet 25 mg PO TID 10/17/20 [History Last Taken 05/04/21] hydrochlorothiazide 12.5 mg tablet 12.5 mg PO DAILY 10/17/20 [History Last Taken 05/03/21] ramipril 10 mg capsule 10 mg PO BID 10/17/20 [History Last Taken 05/04/21] dapagliflozin 10 mg tablet (Farxiga) 10 mg PO DAILY 09/30/21 [History Last Taken Unknown] insulin detemir U-100 100 unit/mL (3 mL) subcutaneous pen 5 unit subcut DAILY 09/30/21 [History Last Taken Unknown] meloxicam 15 mg tablet 15 mg PO DAILY 09/30/21 [History Last Taken Unknown] terbinafine HCl 250 mg tablet 250 mg PO DAILY 09/30/21 [History Last Taken Unknown] Allergy/AdvReac Type Severity Reaction Status Date / Time No Known Allergies Allergy Verified 11/05/21 16:18 Family History Father CAD (coronary artery disease) Mother Dementia Surgical History H/O aortic valve replacement H/O cardiac catheterization History of aortic aneurysm repair (~2017) History of aortic valve replacement with bioprosthetic valve (~2016) History of cataract surgery History of hernia repair Social History Smoking Status: Current every day smoker tobacco type: cigarettes alcohol intake: former year quit: 2020 substance use type: former substance user caffeine: Yes Type: coffee Number of servings: 3 ROS ROS ED Review of Systems ROS Unobtainable: other Constitutional Constitutional ED: Reports lethargy; Denies chills, fever(s), sweats or weight loss Eyes Eyes: Denies blurry vision, change in vision or diplopia ENT ENT ED: Denies rhinorrhea or sore throat Cardiovascular Cardiovascular: Reports racing heartbeat; Denies chest pain or orthopnea Respiratory/Chest Respiratory/Chest: Denies cough, dyspnea, dyspnea on exertion, orthopnea or sputum Gastrointestinal Gastrointestinal: Reports nausea and vomiting; Denies abdominal pain or diarrhea Genitourinary Genitourinary ED: Denies dysuria, hematuria or urinary frequency Musculoskeletal Musculoskeletal: Denies arthralgias, back pain, myalgias or neck pain Integumentary Denies abscess, Abrasions or rash Neurologic Neurologic: Denies headache(s) or weakness Psychiatric Psychiatric: Denies anxiety, depression or suicidal thoughts Endocrine Endocrinology: Denies polydipsia, polyphagia or polyuria Hematologic/Lymphatic Hematologic/Lymphatic: Denies easy bleeding, easy bruising or lymphadenopathy Allergic/Immunologic Allergic/Immunologic ED: Denies mouth swelling, tongue swelling or urticaria EXAM Physical Exam Const Vital Signs: 11/05/21 16:18 Temperature 97.8 F Temperature Source Temporal Pulse Rate 58 L Respiratory Rate 18 Blood Pressure 105/79 Blood Pressure Mean 87 Pulse Ox 100 Oxygen Delivery Method Room Air Positive well nourished and well developed General Appearance ED: well developed and NAD HEENT Reports TM's clear and moist mucous membranes normocephalic and atraumatic; Negative for trauma or tenderness Tympanic Membrane ED: Yes TM's clear Eyes PERRL and EOMs intact bilaterally General Eye ED: Negative for pale conjunctiva or scleral icterus Neck no lymphadenopathy, supple and no JVD General: Negative for tenderness Chest Wall inspection of chest normal and palpation of chest normal Chest: Negative for tenderness Resp normal respiratory effort and clear to auscultation bilaterally Effort and Inspection: Negative for respiratory distress or pain with movement Auscultation: Negative for rhonchi, wheezes or diminished lung sounds Cardio regular rate, regular rhythm, S1 normal heart sound, S2 normal heart sound and no murmurs Peripheral Pulses: pulses 2+ throughout GI normal to inspection, nondistended, normoactive bowel sounds, soft to palpation, non-tender, non-distended and no masses Back/Spine no CVA tenderness and no thoracic nor lumbar tenderness Extremity normal to inspection General Extremety ED: Negative for edema General Extremity: Negative for edema Neuro oriented x3, CN's II-XII intact bilaterally, no sensory deficits noted and gait normal Sensorium / Orientation: awake, alert, oriented to person, oriented to place and oriented to time Motor Exam: strength 5/5 throughout and strength abnormal Psych mental status grossly normal Skin no rashes or lesions noted and no wounds MDM MDM MDM Narrative Medical decision making narrative: IV line established on arrival. Lab work-up performed including CBC with differential which were 105.9, hemoglobin 12, hematocrit 35, platelets 215. Urine toxicology screen ordered as well as alcohol level. Patient had CMP ordered. Case will be discussed with hospitalist evaluate patient for admission for alcohol detox. Lab Data Attestation: I reviewed the patient's lab results. Labs: Laboratory Results - last 24 hr 11/05/21 11/05/21 11/05/21 16:41 16:52 17:25 WBC 5.9 RBC 3.22 L Hgb 12.0 L Hct 34.7 L MCV 107.8 H MCH 37.3 H MCHC 34.6 RDW Std Deviation 62.5 H RDW Coeff of [place] 15.7 H Plt Count 215 MPV 11.5 Immature Gran % (Auto) 0.300 Neut % (Auto) 56.9 Lymph % (Auto) 27.9 [place] % (Auto) 13.4 H Eos % (Auto) 0.5 Baso % (Auto) 1.0 Absolute Neuts (auto) 3.4 Absolute Lymphs (auto) 1.65 Nucleated RBC % 0 Sodium 138 Potassium 2.5 L* Chloride 92 L Carbon Dioxide 27.0 Anion Gap 19 H BUN 7 Creatinine 1.15 Estim Creat Clear Calc 73.66 Est GFR (MDRD) Af Amer 84 Est GFR (MDRD) Non-Af 69 BUN/Creatinine Ratio 6.1 L Glucose 310 H Calcium 7.8 L Total Bilirubin 0.80 AST 163 H ALT 78 H Alkaline Phosphatase 150 H Total Protein 5.6 L Albumin 2.3 L Globulin 3.3 Albumin/Globulin Ratio 0.7 L Lipase 11 L Ur Drug Screen Comment Discharge Plan Dx/Rx/DC Orders Clinical Impression: Withdrawn from alcohol detoxification program, History of diabetes mellitus, ETOH abuse, Hx of hypercholesterolemia, Acute hypokalemia Disposition Disposition: Acute Care Hospital [facility]
--- NOTE | 2021-11-05 16:51 | CM.ED ---
BLANKA Note Referral Source: Case Find Referral Reason: ELENA MOSCOSO met with patient. Patient said that he is here at the hospital for detox. Patient said I finished up a 8% alcohol can at 2:00pm. Patient said I need help. Patient said I am drinking 1-2 beers a day and I have a heart condition and diabetic and when I drink it affects me bad.. it is affecting my work and I need help. Patient very focused on he needs to go to [facility] to get my job back. BLANKA advised that patient will meet with addiction therapist, Ausitn on the next day to discuss discharge plans. Patient then voiced that he does not want to go to the residential house on [facility]. SW again advised that patient needs to discuss options with [place]. Patient again voiced he needs to be in a program and want help. Patient voiced that when he left the [facility] program previously he walked to the [employer] to get alcohol. SW provided emotional support. Patient also appears to be under the influence at this time. BLANKA called [facility] addiction therapist and advised of patient's desire for detox and residental treatment. BLANKA left voice mail for [place] on her confidental voice mail. Plan: [facility]
[2021-11-05 16:54] LABS: Absolute Lymphocyte Count 1.65 X10^3/uL (0.83-4.51); Absolute Neutrophil Count 3.4 X10^3/uL (2.0-7.7); Basophil# 0.06 X10^3/uL; Eosinophil# 0.03 X10^3/uL; Eosinophils% 0.5 % (0-5); Hematocrit 34.7 % (40-54); Lymphocyte # 1.65 X10^3/ul (0.83-4.51); Lymphocyte % 27.9 % (19-41); Mean Corp Hgb Conc 34.6 g/dL (32-36); Mean Corpuscular Hgb 37.3 pg (27.0-32.0); Mean Corpuscular Volume 107.8 fL (80-94); Mean Platelet Vol. 11.5 fl (6.2-12.0); Monocyte# 0.79 X10^3/uL; Monocyte% 13.4 % (0-10); NRBC Flagged by Analyzer 0 % (0-5); Neutrophil # 3.36 X10^3/uL (2.7-7.7); Neutrophil % 56.9 % (47-70); Platelet Count 215 K/mm3 (150-450); RBC Distribution Width CV 15.7 % (11.6-14.6); RBC Distribution Width SD 62.5 fl (35.1-43.9); Red Blood Count 3.22 M/mm3 (4.6-6.2); White Blood Count 5.9 K/mm3 (4.4-11.0)
[2021-11-05] MEDS: 0.9% Normal Saline 1,000 ML 150 ML IV (16:57)
[2021-11-05 17:30] LABS: ALB/GLOB Ratio 0.7 RATIO (0.9-2.4); AST(SGOT) 163 U/L (15-37); Alanine Aminotransfer ALT/SGPT 78 U/L (16-61); Albumin, Serum 2.3 g/dL (3.2-5.0); Alkaline Phosphatase 150 U/L (45-117); Anion Gap 19 (5-15); BUN 7 mg/dL (7-18); BUN/Creat Ratio 6.1 RATIO (10-20); Calcium,Total 7.8 mg/dL (8.5-10.1); Chloride 92 mmol/L (98-107); Creatinine, Serum 1.15 mg/dL (0.70-1.30); EST Glomerular Filtration Rate 69 mL/min (>60); Est Glom Filt Rate - Afr Amer 84 mL/min (>60); Estimated Creatinine Clearance 73.66 ml/min; Globulin 3.3 g/dL (2.2-4.2); Glucose 310 mg/dL (74-106); Lipase 11 U/L (73-393); Potassium 2.5 mmol/L (3.5-5.1); Protein, Total 5.6 g/dL (6.4-8.2); Sodium Level 138 mmol/L (136-145)
--- NOTE | 2021-11-05 17:45 | PCM.DC ---
Discharge Instructions Follow Up Care Please Follow Up With: Werner When: call in morning to set up counseling. Test Results: Test results from this visit will be discussed in further detail at your follow-up appointment, if applicable. Discharge Plan Triage Chief Complaint: Substance Abuse ED Provider: Samantha Singer Dx/Rx/DC Orders Clinical Impression: Withdrawn from alcohol detoxification program, History of diabetes mellitus, ETOH abuse, Hx of hypercholesterolemia, Acute hypokalemia Prescriptions: No Action omeprazole 40 mg capsule,delayed release(DR/EC) 40 mg PO DAILY hydrochlorothiazide 12.5 mg tablet 12.5 mg PO DAILY atorvastatin 10 mg tablet 10 mg PO DAILY amlodipine 5 mg tablet 5 mg PO DAILY ramipril 10 mg capsule 10 mg PO BID hydralazine 25 mg tablet 25 mg PO TID metformin 500 MG tablet 500 mg PO BID meloxicam 15 mg Tablet 15 mg PO DAILY terbinafine HCl 250 mg Tablet 250 mg PO DAILY Levemir Flexpen 100 unit/mL (3 mL) Insulin Pen 5 unit SUBCUT DAILY Farxiga 10 mg Tablet 10 mg PO DAILY Primary Care Provider: Dk Pathak NP Referrals: Dk Pathak NP, MECHANIC WELDER-C [Primary Care Provider] - Disposition Disposition: Home, Self Care
--- NOTE | 2021-11-05 17:47 | CON.PCM.HO_ITS ---
Assessment & Plan Assessment/Plan (1) ETOH abuse: PLAN: Patient drinks 1-2 of mikmikayla hard lemonade daily. His last drink was today. He is not acutely going through any alcohol withdrawal. I do not anticipate him going through any acute alcohol withdrawal that would warrant the use phenobarbital or lorazepam. I did offer the patient the opportunity to stay overnight to see addiction medicine but the patient states that [facility] and will call them. I advised him to call them and set up an appointment as soon as he is able to. Patient has been very consistent in saying that he drinks 1-2 drinks per day and did have 2 drinks shortly before coming in here. Once again I do feel the patient is at low risk of going through acute alcohol withdrawal and reiterated to him that I do not anticipate him going through acute alcohol withdrawal though strongly recommended that he [facility]. Patient has been established with with them for a long period of time but has not participated in counseling in some time. (2) Hypokalemia: PLAN: Likely due to his hydrochlorothiazide Reviewed labs with the patient's and he has been chronically low before but this is certainly the lowest. He did receive 40 mill equivalents in the emergency room. 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 Patient's blood sugar was 2 11 when he presented. Recommend the patient continue with his Levemir, will though I did state that his dose may need to be increased, as well as the metformin. Patient does check his blood sugar daily. Patient was on Farxiga through his diabetic clinic. He is already on the prescription. I have advised him to follow-up with his diabetes clinic to see if that will need to be continued or if. Need to be other adjustments to his diabetes regimen. (4) HTN (hypertension): PLAN: Continue with his amlodipine, HCTZ and ramipril. PLAN: Plan I reviewed his medications with him and recommended discontinuing his meloxicam as well as his terbinafine. Patient does not have any chronic kidney disease that I can appreciate at this time. Patient will receive a short course of potassium chloride upon discharge. Patient advised to take a multivitamin daily which is [id number]. Patient was clearly upset about the [id number] about being told that he was being admitted to being told by me that he did not need to be admitted. But I had a very long conversation with nursing in his room and patient is comfortable with returning home and will follow up with his primary care doctor, cardiology as well as with [facility]. Greater than 60 minutes of which greater than 50% of time was counseling the patient, about alcohol withdrawal, review of his medications and making adjustments to the medications with the patient in his room. Discussing the importance of follow-up with his providers as mentioned above as well as with addiction counseling. HPI Consult Data Date of Consult: 11/05/21 HPI Narrative Reason for Consultation: Alcohol withdrawal HPI Narrative: ANALILIA TALLEY, is a 61 M who presents seeking treatment for alcohol wi thdrawal. Patient drinks 1 to of mikes hard lemonade daily. He was concerned given his chronic medical conditions about his alcohol consumption and wanted help. He reached out to [facility] and advised him come to the emergency room. Patient want to be here for 3 days of detox. He currently has no withdrawal symptoms. Nor is he had severe withdrawal symptoms such as delirium tremens. PFSH Medical History Adrenal nodule Alcohol dependence Alcoholism Alcoholism in remission Aortic aneurysm Ascending aortic dissection (~2005) Cardiac pacemaker in situ (~06/2016) Diabetes mellitus, type II Essential hypertension Hiatal hernia HTN (hypertension) Left carotid bruit Non-sustained ventricular tachycardia Pacemaker Pleuritic chest pain Pure hypercholesterolemia Right bundle branch block (RBBB) Shortness of breath Sick sinus syndrome Smoker Substance abuse SVT (supraventricular tachycardia) Thoracic aortic aneurysm Tobacco use Home Medications omeprazole 40 mg capsule,delayed release 40 mg PO DAILY reflux 06/10/18 [History Last Taken 05/04/21] metformin 500 mg tablet 500 mg PO BID diabetes 01/21/19 [History Last Taken 05/04/21] amlodipine 5 mg tablet 5 mg PO DAILY 10/17/20 [History Last Taken 05/04/21] atorvastatin 10 mg tablet 10 mg PO DAILY 10/17/20 [History Last Taken 05/03/21] hydralazine 25 mg tablet 25 mg PO TID 10/17/20 [History Last Taken 05/04/21] hydrochlorothiazide 12.5 mg tablet 12.5 mg PO DAILY 10/17/20 [History Last Taken 05/03/21] ramipril 10 mg capsule 10 mg PO BID 10/17/20 [History Last Taken 05/04/21] dapagliflozin 10 mg tablet (Farxiga) 10 mg PO DAILY 09/30/21 [History Last Taken Unknown] insulin detemir U-100 100 unit/mL (3 mL) subcutaneous pen 5 unit subcut DAILY 0 09/30/21 [History Last Taken Unknown] multivitamin 1 tab PO DAILY #30 tabs 11/05/21 [Rx Last Taken Unknown] potassium chloride 10 mEq capsule,extended release 20 meq PO BID #10 caps 11/05/21 [Rx Last Taken Unknown] Allergy/AdvReac Type Severity Reaction Status Date / Time No Known Allergies Allergy Verified 11/05/21 16:18 Family History Father CAD (coronary artery disease) Mother Dementia Surgical History H/O aortic valve replacement H/O cardiac catheterization History of aortic aneurysm repair (~2016) History of aortic valve replacement with bioprosthetic valve (~2016) History of cataract surgery History of hernia repair Social History Smoking Status: Current every day smoker tobacco type: cigarettes alcohol intake: former year quit: 2020 substance use type: former substance user caffeine: Yes Type: coffee Number of servings: 3 ROS ROS Narrative Weight loss. Has had some nausea. No tremulousness. ROS Physical Exam Const alert and no apparent distress Constitutional Narrative: It was sitting up in bed. No tremulousness. Ambulates in the room without any difficulty or unsteadiness. HEENT normocephalic and head/scalp atraumatic Neuro moves all extremities and no focal motor deficits Psych affect normal Lab / Micro Data Result Diagrams: 11/05/21 16:41 11/05/21 16:52 Labs: Laboratory Results - last 24 hr 11/05/21 16:41: WBC 5.9, RBC 3.22 L, Hgb 12.0 L, Hct 34.7 L, MCV 107.8 H, MCH 37.3 H, MCHC 34.6, RDW Std Deviation 62.5 H, RDW Coeff of Kalpana 15.7 H, Plt Count 215, MPV 11.5, Immature Gran % (Auto) 0.300, Neut % (Auto) 56.9, Lymph % (Auto) 27.9, [place] % (Auto) 13.4 H, Eos % (Auto) 0.5, Baso % (Auto) 1.0, Absolute Neuts (auto) 3.4, Absolute Lymphs (auto) 1.65, Nucleated RBC % 0 11/05/21 16:52: Sodium 138, Potassium 2.5 L*, Chloride 92 L, Carbon Dioxide 27.0, Anion Gap 19 H, BUN 7, Creatinine 1.15, Estim Creat Clear Calc 73.66, Est GFR (MDRD) Af Amer 84, Est GFR (MDRD) Non-Af 69, BUN/Creatinine Ratio 6.1 L, Glucose 310 H, Calcium 7.8 L, Total Bilirubin 0.80, AST 163 H, ALT 78 H, Alkaline Phosphatase 150 H, Total Protein 5.6 L, Albumin 2.3 L, Globulin 3.3, Albumin/Globulin Ratio 0.7 L, Lipase 11 L 11/05/21 16:52: Ethyl Alcohol 253.0 11/05/21 17:25: Ur Drug Screen Comment Charges/Coding Visit Charges Office Visits / Consults: 19466 OP Consult L4
[2021-11-05 17:52] LABS: Amphetamine Urine VISTA NEGATIVE (<1000 ng/mL); Barbiturate Urine VISTA NEGATIVE (< 200 ng/mL); Benzodiazepine Urine VISTA NEGATIVE (< 200 ng/mL); Cocaine Urine VISTA NEGATIVE (< 300 ng/mL); Ecstacy Urine VISTA NEGATIVE (< 500 ng/mL); Methadone Urine VISTA NEGATIVE (< 300 ng/mL); PCP Urine VISTA NEGATIVE (< 25 ng/mL); THC Urine VISTA NEGATIVE (< 50 ng/mL); Vista UDS pH Range 8
[2021-11-05] MEDS: Potassium Chloride Oral Tablet 20 MEQ 40 MEQ PO (17:52)
--- NOTE | 2021-11-05 19:02 | CM.ED ---
BLANKA Note SW was advised that patient was not being admitted. SW met with patient and he voiced he wanted help with his alcohol use and that he knew he needed help. Patient voiced that he felt that today was the day he should get help. BLANKA called Treatment Navigator, Josi, and updated her regarding this situation. Josi spoke to patient and learned his drinking level and comorbidities. Josi spoke to MD Whiting who indicated that based on the information provided to her patient meets criteria and if he is admitted for 1-2 days for detox then go to outpatient or residential. Dr. Whiting said that she felt that it was appropriate to have the hospitalist re-review patient for admission and said if a MD needs to contact her they can. Josi said that they would like to keep patient close to the area and his support system. Josi said that they also have issues with patient getting transportation to [facility]. Josi said that Dr. Whiting is available for consult if needed but again she feels patient meets inpatient criteria for [facility] program. BLANKA updated MD Baeza and ELIS Walker. Aurora SPEARS
--- NOTE | 2021-11-05 19:55 | HP.PCM.HOS_ITS ---
[facility] - General General Date of Admission: 11/05/21 Date of Service: 11/05/21 Chief Complaint: Desire for detoxification HPI Narrative ANALILIA TALLEY, is a 61 M with a significant history of hypertension; diabetes melitis; alcoholism; aortic aneurysm s/p repair; previous mechanical aortic valve replacements that was changed to bovine aortic valve replacement presents to the emergency department for desire for alcohol detoxification. Patient report that he drinks 2 tall beers per day. Last time he drank was a day before presentation. He has been drinking since his college years which is about 35 years ago. He has been drinking on and off. He reports mild withdrawal symptoms of tremors and headache. He reports anorexia with weight loss of 15 to 20 pounds in the past 2 to 3 weeks. [facility] Medical History Adrenal nodule Alcohol dependence Alcoholism Alcoholism in remission Aortic aneurysm Ascending aortic dissection (~2005) Cardiac pacemaker in situ (~06/2016) Diabetes mellitus, type II Essential hypertension Hiatal hernia HTN (hypertension) Left carotid bruit Non-sustained ventricular tachycardia Pacemaker Pleuritic chest pain Pure hypercholesterolemia Right bundle branch block (RBBB) Shortness of breath Sick sinus syndrome Smoker Substance abuse SVT (supraventricular tachycardia) Thoracic aortic aneurysm Tobacco use Home Medications omeprazole 40 mg capsule,delayed release 40 mg PO DAILY reflux 06/10/18 [History Last Taken 11/05/21] metformin 500 mg tablet 500 mg PO BID diabetes 01/21/19 [History Last Taken 11/05/21] amlodipine 5 mg tablet 5 mg PO DAILY HEART 10/17/20 [History Last Taken 11/05/21] atorvastatin 10 mg tablet 10 mg PO DAILY CHOLESTEROL 10/17/20 [History Last Taken 11/05/21] hydralazine 25 mg tablet 25 mg PO TID BP 10/17/20 [History Last Taken 11/05/21] hydrochlorothiazide 12.5 mg tablet 12.5 mg PO DAILY BP 10/17/20 [History Last Taken 11/05/21] ramipril 10 mg capsule 10 mg PO BID BP 10/17/20 [History Last Taken 11/05/21] dapagliflozin 10 mg tablet (Farxiga) 10 mg PO DAILY DIABETES 09/30/21 [History Last Taken 11/04/21] insulin detemir U-100 100 unit/mL (3 mL) subcutaneous pen 5 unit subcut DAILY DM 09/30/21 [History Last Taken 11/05/21] multivitamin 1 tab PO DAILY #30 tabs 11/05/21 [Rx Last Taken Unknown] Allergy/AdvReac Type Severity Reaction Status Date / Time No Known Allergies Allergy Verified 11/05/21 16:18 Family History Father CAD (coronary artery disease) Mother Dementia Surgical History H/O aortic valve replacement H/O cardiac catheterization History of aortic aneurysm repair (~2017) History of aortic valve replacement with bioprosthetic valve (~2017) History of cataract surgery History of hernia repair Social History Smoking Status: Current every day smoker tobacco type: cigarettes alcohol intake: current substance use type: former substance user caffeine: Yes Type: coffee Number of servings: 3 ROS ROS Narrative Pertinent positives and pertinent negatives as noted in HPI. All other systems were reviewed and are negative Vital Signs Vital Signs Vital Signs: 11/05/21 16:18 11/05/21 19:34 Temperature 97.8 F 98 F Temperature Source Temporal Temporal Pulse Rate 58 L 107 H Respiratory Rate 18 18 Blood Pressure 105/79 116/67 Blood Pressure Mean 87 83 Pulse Ox 100 97 Oxygen Delivery Method Room Air Room Air Weight Weight: 79.379 kg Body Mass Index (BMI) 24.4 Physical Exam Narrative Physical exam: General: Well-nourished, well-developed. Head: Normocephalic, atraumatic, no tenderness Eyes: Vision is grossly intact. EOMI ENT, no trauma, moist mucous membranes, no rhinorrhea Neck: Nontender, full range of motion, no spinal tenderness, deformities, step- off CVS: Regular rate and rhythm. S1-S2 present. No murmur, gallop or rub. Respiratory : clear to auscultation bilaterally, chest wall nontender, no wheezing Abdomen: Soft, nontender, nondistended, normal bowel sounds, no masses : Deferred Back: Nontender, no CVA tenderness, no midline spinal tenderness, deformities, step-offs Extremities: Nontender full range of motion, no trauma Skin: Normal color, no trauma, abrasions Neuro: Alert, oriented, cranial nerves II through XII grossly intact. Psychiatry: Normal mood. Normal affect. Not depressed. Not anxious. Results Lab / Micro Data Result Diagrams: 11/05/21 16:41 11/05/21 16:52 Labs: Laboratory Results - last 24 hr 11/05/21 16:41: WBC 5.9, RBC 3.22 L, Hgb 12.0 L, Hct 34.7 L, MCV 107.8 H, MCH 37.3 H, MCHC 34.6, RDW Std Deviation 62.5 H, RDW Coeff of Kalpana 15.7 H, Plt Count 215, MPV 11.5, Immature Gran % (Auto) 0.300, Neut % (Auto) 56.9, Lymph % (Auto) 27.9, [place] % (Auto) 13.4 H, Eos % (Auto) 0.5, Baso % (Auto) 1.0, Absolute Neuts (auto) 3.4, Absolute Lymphs (auto) 1.65, Nucleated RBC % 0 11/05/21 16:52: Sodium 138, Potassium 2.5 L*, Chloride 92 L, Carbon Dioxide 27.0, Anion Gap 19 H, BUN 7, Creatinine 1.15, Estim Creat Clear Calc 73.66, Est GFR (MDRD) Af Amer 84, Est GFR (MDRD) Non-Af 69, BUN/Creatinine Ratio 6.1 L, Glucose 310 H, Calcium 7.8 L, Total Bilirubin 0.80, AST 163 H, ALT 78 H, Alkaline Phosphatase 150 H, Total Protein 5.6 L, Albumin 2.3 L, Globulin 3.3, Albumin/Globulin Ratio 0.7 L, Lipase 11 L 11/05/21 16:52: Ethyl Alcohol 253.0 11/05/21 17:25: Urine Opiates Screen NEGATIVE, Urine Methadone Screen NEGATIVE, Ur Barbiturates Screen NEGATIVE, Ur Phencyclidine Scrn NEGATIVE, Ur Amphetamines Screen NEGATIVE, MDMA (Ecstasy) Screen NEGATIVE, U Benzodiazepines Scrn NEGATIVE, Urine Cocaine Screen NEGATIVE, U Cannabinoids Screen NEGATIVE, Ur Drug Screen Comment Assessment & Plan Assessment/Plan (1) ETOH abuse: (2) Hypokalemia: (3) Withdrawn from alcohol detoxification program: (4) HTN (hypertension): (5) Tobacco use: PLAN: Alcohol dependence and desire for detoxification Ethanol level on presentation was 253. Patient be started on phenobarbital and other adjunctive medications: Gabapentin as needed; dicyclomine as needed; Vistaril as needed; Imodium as needed; trazodone as needed; Zofran as needed; scheduled thiamine; and schedule folic acid. Monitor CIWA score Tobacco abuse Counseled Nicotine patch prescribed. Alcoholic hepatitis AST of 163; ALT of 78; alkaline phosphatase of 150. Counseled. Detoxification as above. Hypokalemia His potassium on presentation was 2.5. Received 40 mEq potassium in the emergency department. Potassium 40 mEq daily ordered. Check magnesium. Trend BMP. Hypochloremia Chloride of 92 on presentation. Sodium is normal. Trend BMP. Diabetes mellitus Patient with hyperglycemia on presentation Basal insulin escalated. Metformin continued. Farxiga continued. Monitor Accu-Cheks Correction scale insulin ordered. Cardiac and diabetic diet ordered. Hypertension Blood pressure is soft. Home blood pressure continued with parameters to hold. Trend blood pressure and adjust blood pressure medications. Pseudo-hypocalcemia Albumin of 2.3 Calcium of 7.8 mg per DL if corrected calcium of 9.2 mg per DL. Mild protein calorie malnutrition Reported 15 to 20 pounds weight loss in 2 to 3 weeks. Albumin of 2.3. Dietitian consult. DVT prophylaxis Low risk Encourage to ambulate Charges/Coding Visit Charges Inpatient E&M: 85730 Init Hosp L3
[2021-11-05] MEDS: Phenobarbital 32.4 MG Tablet 64.8 MG PO (21:25)
[2021-11-05] MEDS: Insulin Lispro 100 UNIT/ML INSULN.PEN SC (21:29)
[2021-11-05 22:01] LABS: Magnesium 1.4 mg/dL (1.6-2.6)
[2021-11-05 23:05] LABS: Bedside Glucose 264 mg/dL (74-106)
[2021-11-05] MEDS: 0.9% Normal Saline 1,000 ML 999 ML IV (23:21)
[2021-11-06] VITALS (10 sets, daily range): BP systolic 107–147; BP diastolic 65–104; PULSE 60–117; RESP 12–18; TEMP 36.6–37.1; O2SAT 95–100
[2021-11-06] MEDS: 0.9% Normal Saline 1,000 ML 999 ML IV (01:14)
[2021-11-06] MEDS: Magnesium Sulfate 4gm/100mL 4 GM/100 ML IV.SOLN. IV (01:14)
[2021-11-06] MEDS: Phenobarbital 32.4 MG Tablet 64.8 MG PO ×6 (01:45→21:27)
[2021-11-06] MEDS: hydrALAZINE 25 MG Tablet PO ×3 (05:50→21:28)
[2021-11-06 06:26] LABS: Anion Gap 8 (5-15); BUN 6 mg/dL (7-18); BUN/Creat Ratio 6.8 RATIO (10-20); Calcium,Total 7.3 mg/dL (8.5-10.1); Chloride 103 mmol/L (98-107); Creatinine, Serum 0.89 mg/dL (0.70-1.30); EST Glomerular Filtration Rate 93 mL/min (>60); Est Glom Filt Rate - Afr Amer 113 mL/min (>60); Estimated Creatinine Clearance 87.72 ml/min; Glucose 142 mg/dL (74-106); Potassium 2.9 mmol/L (3.5-5.1); Sodium Level 143 mmol/L (136-145)
[2021-11-06] MEDS: Insulin Lispro 100 UNIT/ML INSULN.PEN SC ×3 (06:33→17:18)
[2021-11-06 07:06] LABS: Bedside Glucose 161 mg/dL (74-106)
[2021-11-06] MEDS: Thiamine Hydrochloride 100 MG Tablet PO (08:51)
[2021-11-06] MEDS: Folic Acid 1 MG Tablet PO (08:51)
[2021-11-06] MEDS: Potassium Chloride Oral Tablet 20 MEQ 40 MEQ PO (08:51)
[2021-11-06] MEDS: metFORMIN HCl 500 MG Tablet PO ×2 (08:51→17:17)
[2021-11-06] MEDS: Glucerna Shake 120 ML LIQUID PO ×3 (08:52→17:17)
[2021-11-06] MEDS: Pantoprazole Sodium 40 MG Tablet PO (09:56)
[2021-11-06] MEDS: Empagliflozin 25 MG Tablet PO (09:57)
[2021-11-06] MEDS: Insulin Glargine-YFGN 100 UNIT/ML Pen 10 UNIT SC (09:59)
[2021-11-06] MEDS: Ibuprofen 600 MG Tablet PO ×2 (10:55→21:27)
[2021-11-06 11:51] LABS: Bedside Glucose 169 mg/dL (74-106)
[2021-11-06] MEDS: FLU VACC QS2022-23(6MOS UP)/PF 60 MCG/0.5 ML SYRINGE IM (12:26)
[2021-11-06 13:25] LABS: Magnesium 2.6 mg/dL (1.6-2.6)
--- NOTE | 2021-11-06 16:17 | PCM.PN.HOSP ---
Subjective Subjective Patient was seen and examined today, he does not complain of any nervousness or tremors at this time. Patient's magnesium was low on admission, I repeated today and it had normalized. Patient was given extra potassium supplementation due to hypokalemia today. Objective Data Objective Data Vital Signs: Vital Signs Temp Pulse Resp BP Pulse Ox O2 Del Method 98.2 F 97 17 113/86 H 99 Room Air 11/06/21 13:51 11/06/21 13:55 11/06/21 13:51 11/06/21 13:51 11/06/21 13:51 11/06/21 13:51 Oxygen Delivery Method Room Air Weight: 69.4 kg Body Mass Index (BMI) 21.3 Intake & Output: Intake and Output for Last 24 Hours 11/04/21 11/05/21 11/06/21 23:59 23:59 23:59 Intake Total 762.5 / 1002.5 2980 / 2980 Balance 762.5 / 1002.5 2980 / 2980 Lab / Micro Data Result Diagrams: 11/05/21 16:41 11/06/21 05:40 Labs: Laboratory Results - last 24 hr 11/05/21 16:41: WBC 5.9, RBC 3.22 L, Hgb 12.0 L, Hct 34.7 L, MCV 107.8 H, MCH 37.3 H, MCHC 34.6, RDW Std Deviation 62.5 H, RDW Coeff of Kalpana 15.7 H, Plt Count 215, MPV 11.5, Immature Gran % (Auto) 0.300, Neut % (Auto) 56.9, Lymph % (Auto) 27.9, [place] % (Auto) 13.4 H, Eos % (Auto) 0.5, Baso % (Auto) 1.0, Absolute Neuts (auto) 3.4, Absolute Lymphs (auto) 1.65, Nucleated RBC % 0 11/05/21 16:52: Sodium 138, Potassium 2.5 L*, Chloride 92 L, Carbon Dioxide 27.0, Anion Gap 19 H, BUN 7, Creatinine 1.15, Estim Creat Clear Calc 73.66, Est GFR (MDRD) Af Amer 84, Est GFR (MDRD) Non-Af 69, BUN/Creatinine Ratio 6.1 L, Glucose 310 H, Calcium 7.8 L, Total Bilirubin 0.80, AST 163 H, ALT 78 H, Alkaline Phosphatase 150 H, Total Protein 5.6 L, Albumin 2.3 L, Globulin 3.3, Albumin/Globulin Ratio 0.7 L, Lipase 11 L 11/05/21 16:52: Ethyl Alcohol 253.0 11/05/21 17:25: Urine Opiates Screen NEGATIVE, Urine Methadone Screen NEGATIVE, Ur Barbiturates Screen NEGATIVE, Ur Phencyclidine Scrn NEGATIVE, Ur Amphetamines Screen NEGATIVE, MDMA (Ecstasy) Screen NEGATIVE, U Benzodiazepines Scrn NEGATIVE, Urine Cocaine Screen NEGATIVE, U Cannabinoids Screen NEGATIVE, Ur Drug Screen Comment 11/05/21 20:52: Magnesium 1.4 L 11/05/21 21:28: POC Glucose 264 H 11/06/21 05:40: Sodium 143, Potassium 2.9 L, Chloride 103, Carbon Dioxide 32.0, Anion Gap 8, BUN 6 L, Creatinine 0.89, Estim Creat Clear Calc 87.72, Est GFR (MDRD) Af Amer 113, Est GFR (MDRD) Non-Af 93, BUN/Creatinine Ratio 6.8 L, Glucose 142 H, Calcium 7.3 L 11/06/21 05:40: Magnesium 2.6 11/06/21 06:32: POC Glucose 161 H 11/06/21 11:33: POC Glucose 169 H Physical Exam Const alert, oriented x3, no apparent distress and healthy appearing General Appearance: cooperative, well kempt and well developed Orientation / Consciousness: awake, oriented to person, oriented to place and oriented to time HEENT normocephalic, head/scalp atraumatic and moist oral mucous membranes Eyes PERRL, EOMs intact bilaterally and conjunctivae normal Neck supple, no JVD, thyroid normal and no carotid bruits General: trachea midline Resp normal respiratory effort, no retractions, no use of accessory muscles and clear to auscultation bilaterally Auscultation: Negative for rales, rhonchi or wheezes Cardio regular rate, regular rhythm, no rub and no gallops Cardio Narrative: There is a 2/6 systolic murmur at the apex and right sternal border GI normal to inspection, nondistended, normoactive bowel sounds, soft to palpation, non-tender and non-distended Extremity no clubbing, cyanosis or edema Skin no rashes or lesions noted General Skin Exam: no breakdown Neuro oriented x3, CN's II-XII intact bilaterally, moves all extremities, no focal motor deficits and no sensory deficits noted Sensorium / Orientation: awake and alert Speech: speech normal Psych affect normal Assessment & Plan Assessment/Plan (1) Withdrawn from alcohol detoxification program: PLAN: Plan 1. Acute alcohol withdrawal-patient will continue on his present medication with phenobarb taper, he will be seen by addiction director of social services. #2 chronic alcoholism-complicates care, management, recovery, and prognosis #3 type 2 diabetes-patient is currently on metformin and sliding scale insulin as well as basal insulin, blood sugars will be monitored, sliding scale insulin will be used as needed. Patient is also on Jardiance. #4 essential hypertension-patient will remain on his present medications for blood pressure #5 GERD-patient is currently on a PPI #6 hypokalemia-patient's potassium will be rechecked tomorrow, he was given oral potassium supplementation today #7 hypomagnesemia-corrected at this time Charges/Coding Visit Charges Inpatient E&M: 69231 Subs Hosp L2
[2021-11-06 17:25] LABS: Bedside Glucose 235 mg/dL (74-106)
[2021-11-06] MEDS: Atorvastatin Calcium 10 MG Tablet PO (21:28)
[2021-11-06 22:20] LABS: Bedside Glucose 119 mg/dL (74-106)
[2021-11-07] VITALS (11 sets, daily range): BP systolic 113–141; BP diastolic 83–114; PULSE 77–106; RESP 16–18; TEMP 36.5–37.1; O2SAT 97–99
[2021-11-07] MEDS: Phenobarbital 32.4 MG Tablet 64.8 MG PO ×4 (01:28→14:09)
[2021-11-07] MEDS: Ibuprofen 600 MG Tablet PO ×2 (05:50→22:15)
[2021-11-07] MEDS: hydrALAZINE 25 MG Tablet PO ×3 (05:53→22:14)
[2021-11-07 06:34] LABS: Anion Gap 8 (5-15); BUN 6 mg/dL (7-18); Calcium,Total 7.7 mg/dL (8.5-10.1); Chloride 106 mmol/L (98-107); Creatinine, Serum 0.86 mg/dL (0.70-1.30); EST Glomerular Filtration Rate 97 mL/min (>60); Est Glom Filt Rate - Afr Amer 117 mL/min (>60); Estimated Creatinine Clearance 90.78 ml/min; Glucose 111 mg/dL (74-106); Potassium 3.4 mmol/L (3.5-5.1); Sodium Level 143 mmol/L (136-145)
[2021-11-07 06:55] LABS: Bedside Glucose 149 mg/dL (74-106)
[2021-11-07] MEDS: Glucerna Shake 120 ML LIQUID PO ×3 (08:13→16:37)
[2021-11-07] MEDS: Thiamine Hydrochloride 100 MG Tablet PO (08:13)
[2021-11-07] MEDS: Potassium Chloride Oral Tablet 20 MEQ 40 MEQ PO (08:13)
[2021-11-07] MEDS: Folic Acid 1 MG Tablet PO (08:13)
[2021-11-07] MEDS: metFORMIN HCl 500 MG Tablet PO ×2 (08:13→16:37)
[2021-11-07] MEDS: Empagliflozin 25 MG Tablet PO (09:38)
[2021-11-07] MEDS: Pantoprazole Sodium 40 MG Tablet PO (09:38)
[2021-11-07] MEDS: Insulin Glargine-YFGN 100 UNIT/ML Pen 10 UNIT SC (09:39)
[2021-11-07] MEDS: Insulin Lispro 100 UNIT/ML INSULN.PEN SC ×2 (11:30→16:37)
[2021-11-07 11:51] LABS: Bedside Glucose 225 mg/dL (74-106)
[2021-11-07 17:00] LABS: Bedside Glucose 191 mg/dL (74-106)
--- NOTE | 2021-11-07 19:12 | PCM.PN.HOSP ---
Subjective Subjective Patient was seen and examined today, he exhibits no symptoms of alcohol withdrawal at this time, patient does not complain of any tremor or nervousness. Objective Data Objective Data Vital Signs: Vital Signs Temp Pulse Resp BP Pulse Ox O2 Del Method 97.9 F 89 16 123/92 H 98 Room Air 11/07/21 17:40 11/07/21 17:40 11/07/21 17:40 11/07/21 17:40 11/07/21 17:40 11/07/21 17:40 Oxygen Delivery Method Room Air Weight: 69.4 kg Body Mass Index (BMI) 21.3 Intake & Output: Intake and Output for Last 24 Hours 11/05/21 11/06/21 11/07/21 23:59 23:59 23:59 Intake Total 762.5 / 1002.5 3420 / 3420 1390 / 1390 Balance 762.5 / 1002.5 3420 / 3420 1390 / 1390 Lab / Micro Data Result Diagrams: 11/05/21 16:41 11/07/21 05:05 Labs: Laboratory Results - last 24 hr 11/06/21 21:26: POC Glucose 119 H 11/07/21 05:05: Sodium 143, Potassium 3.4 L, Chloride 106, Carbon Dioxide 29.0, Anion Gap 8, BUN 6 L, Creatinine 0.86, Estim Creat Clear Calc 90.78, Est GFR (MDRD) Af Amer 117, Est GFR (MDRD) Non-Af 97, BUN/Creatinine Ratio 7.0 L, Glucose 111 H, Calcium 7.7 L 11/07/21 06:34: POC Glucose 149 H 11/07/21 11:27: POC Glucose 225 H 11/07/21 16:36: POC Glucose 191 H Physical Exam Narrative alert, oriented x3, no apparent distress and healthy appearing General Appearance: cooperative, well kempt and well developed Orientation / Consciousness: awake, oriented to person, oriented to place and oriented to time HEENT normocephalic, head/scalp atraumatic and moist oral mucous membranes Eyes PERRL, EOMs intact bilaterally and conjunctivae normal Neck supple, no JVD, thyroid normal and no carotid bruits General: trachea midline Resp normal respiratory effort, no retractions, no use of accessory muscles and clear to auscultation bilaterally Auscultation: Negative for rales, rhonchi or wheezes Cardio regular rate, regular rhythm, no rub and no gallops Cardio Narrative: There is a 2/6 systolic murmur at the apex and right sternal border GI normal to inspection, nondistended, normoactive bowel sounds, soft to palpation, non-tender and non-distended Extremity no clubbing, cyanosis or edema Skin no rashes or lesions noted General Skin Exam: no breakdown Neuro oriented x3, CN's II-XII intact bilaterally, moves all extremities, no focal motor deficits and no sensory deficits noted Sensorium / Orientation: awake and alert Speech: speech normal Psych affect normal Assessment & Plan Assessment/Plan (1) Withdrawn from alcohol detoxification program: PLAN: Plan 1. Acute alcohol withdrawal-patient will continue on his present medication with phenobarb taper, patient is planning on doing an outpatient detox program, I have elected to scale down his phenobarbital at this time. #2 chronic alcoholism-complicates care, management, recovery, and prognosis #3 type 2 diabetes-patient is currently on metformin and sliding scale insulin as well as basal insulin, blood sugars will be monitored, sliding scale insulin will be used as needed. Patient is also on Jardiance. #4 essential hypertension-patient will remain on his present medications for blood pressure #5 GERD-patient is currently on a PPI #6 hypokalemia-patient's potassium will be rechecked tomorrow, he was given oral potassium supplementation today #7 hypomagnesemia-corrected at this time Charges/Coding Visit Charges Inpatient E&M: 94442 Subs Hosp L2
[2021-11-07] MEDS: Atorvastatin Calcium 10 MG Tablet PO (22:15)
[2021-11-07] MEDS: traZODone 100 MG Tablet PO (22:15)
[2021-11-07] MEDS: Phenobarbital 32.4 MG Tablet PO (22:15)
[2021-11-07 22:40] LABS: Bedside Glucose 149 mg/dL (74-106)
[2021-11-08 04:08] VITALS: BP 117/74; PULSE 60; RESP 16; TEMP 37; O2SAT 98
[2021-11-08 06:31] VITALS: BP 114/95
[2021-11-08 06:32] VITALS: PULSE 82
[2021-11-08] MEDS: hydrALAZINE 25 MG Tablet PO (06:32)
[2021-11-08] MEDS: Phenobarbital 32.4 MG Tablet PO (06:32)
[2021-11-08 06:34] LABS: Anion Gap 4 (5-15); BUN 7 mg/dL (7-18); Calcium,Total 7.7 mg/dL (8.5-10.1); Chloride 106 mmol/L (98-107); Creatinine, Serum 0.88 mg/dL (0.70-1.30); EST Glomerular Filtration Rate 94 mL/min (>60); Est Glom Filt Rate - Afr Amer 114 mL/min (>60); Estimated Creatinine Clearance 88.72 ml/min; Glucose 84 mg/dL (74-106); Potassium 4.8 mmol/L (3.5-5.1); Sodium Level 140 mmol/L (136-145)
[2021-11-08 06:55] LABS: Bedside Glucose 141 mg/dL (74-106)
[2021-11-08] MEDS: Glucerna Shake 120 ML LIQUID PO (08:21)
[2021-11-08] MEDS: Potassium Chloride Oral Tablet 20 MEQ 40 MEQ PO (08:24)
[2021-11-08] MEDS: metFORMIN HCl 500 MG Tablet PO (08:24)
[2021-11-08] MEDS: Thiamine Hydrochloride 100 MG Tablet PO (08:25)
[2021-11-08] MEDS: Folic Acid 1 MG Tablet PO (08:25)
[2021-11-08] MEDS: Empagliflozin 25 MG Tablet PO (08:25)
[2021-11-08] MEDS: Pantoprazole Sodium 40 MG Tablet PO (08:25)
[2021-11-08] MEDS: Insulin Glargine-YFGN 100 UNIT/ML Pen 10 UNIT SC (08:29)
--- NOTE | 2021-11-08 10:28 | DCINST_ITS ---
Discharge Instructions Diet Discharge Diet: 1800 Calorie Control Diet Activity Discharge Activity: Return to Normal Activity Weight Bearing Status: Full weight bearing Follow Up Care Please Follow Up With: Werner Test Results: Test results from this visit will be discussed in further detail at your follow- up appointment, if applicable. Discharge Plan Admission Admit Date/Time: 11/05/21 19:45 Primary Reason for Your Visit: alcohol detox Attending Provider: Asif Dutton Primary Care Provider: Dk Pathak NP Consulting Providers: Valeriy Connell Instructions Additional Instructions / Restrictions: Follow up with outpatient detox program Discharge Orders/Prescriptions Prescriptions: New multivitamin Tablet 1 tab PO DAILY Qty: 30 0RF Rx Instructions: over the counter gabapentin 300 mg Capsule 300 mg PO Q8H PRN PRN (Reason: neruropathic pain) Qty: 30 0RF Rx Instructions: for neuropathy from diabetes potassium chloride 10 mEq tablet,ER particles/crystals 20 meq PO DAILY Qty: 60 0RF phenobarbital 32.4 mg tablet 32.4 mg PO TID Qty: 9 0RF Continued omeprazole 40 mg capsule,delayed release(DR/EC) 40 mg PO DAILY hydrochlorothiazide 12.5 mg tablet 12.5 mg PO DAILY atorvastatin 10 mg tablet 10 mg PO DAILY amlodipine 5 mg tablet 5 mg PO DAILY ramipril 10 mg capsule 10 mg PO BID hydralazine 25 mg tablet 25 mg PO TID metformin 500 MG tablet 500 mg PO BID insulin detemir U-100 100 unit/mL (3 mL) Insulin Pen 5 unit SUBCUT DAILY Held Farxiga 10 mg Tablet 10 mg PO DAILY Hold Instructions: until you speak with your diabetic clinic or PCP. Discontinued meloxicam 15 mg Tablet 15 mg PO DAILY terbinafine HCl 250 mg Tablet 250 mg PO DAILY Referrals / Follow Up: Jacky Bey MD [Med Staff - Active Staff] - Within 1 Month Dk Pathak NP, FIRST PR[employer] OPERATOR-C [Primary Care Provider] - Within 2 Weeks Disposition Disposition (needs filled in before D/C Order can be placed): Home, Self Care
--- NOTE | 2021-11-08 10:36 | ADDICTION ---
This worker met with pt to complete ASAM, MSE, AUDIT, DUDIT assessments. Pt actively participated. Pt will follow up with [facility] outpatient treatment services. Pt did not indicate a need for transportation post d/c.
--- NOTE | 2021-11-08 10:37 | PCM.DC.SUM ---
Providers Date of Admission: 11/05/21 Date of Discharge: 11/08/21 Primary Care Physician: Dk Pathak, SUSAN-C Reason For Visit: DESIRE FOR DETOXIFICATION Diagnosis Discharge Diagnosis (1) Withdrawn from alcohol detoxification program: Status: Acute Code(s): Z78.9 - Other specified health status Plan 1. Acute alcohol withdrawal-patient will continue on his present medication with phenobarb taper, patient is planning on doing an outpatient detox program, I have elected to scale down his phenobarbital at this time. #2 chronic alcoholism-complicates care, management, recovery, and prognosis #3 type 2 diabetes-patient is currently on metformin and sliding scale insulin as well as basal insulin, blood sugars will be monitored, sliding scale insulin will be used as needed. Patient is also on Jardiance. #4 essential hypertension-patient will remain on his present medications for blood pressure #5 GERD-patient is currently on a PPI #6 hypokalemia-patient's potassium will be rechecked tomorrow, he was given oral potassium supplementation today #7 hypomagnesemia-corrected at this time Medications at Discharge Home Medications omeprazole 40 mg capsule,delayed release 40 mg PO DAILY reflux 06/10/18 metformin 500 mg tablet 500 mg PO BID diabetes 01/21/19 amlodipine 5 mg tablet 5 mg PO DAILY HEART 10/17/20 atorvastatin 10 mg tablet 10 mg PO DAILY CHOLESTEROL 10/17/20 hydralazine 25 mg tablet 25 mg PO TID BP 10/17/20 hydrochlorothiazide 12.5 mg tablet 12.5 mg PO DAILY BP 10/17/20 ramipril 10 mg capsule 10 mg PO BID BP 10/17/20 dapagliflozin 10 mg tablet (Farxiga) 10 mg PO DAILY DIABETES 09/30/21 insulin detemir U-100 100 unit/mL (3 mL) subcutaneous pen 5 unit subcut DAILY DM 09/30/21 multivitamin 1 tab PO DAILY #30 tabs 11/05/21 gabapentin 300 mg capsule 300 mg PO Q8H PRN PRN neruropathic pain #30 caps 11/08/21 phenobarbital 32.4 mg tablet 32.4 mg PO TID #9 tabs 11/08/21 potassium chloride 10 mEq tablet,extended release(part/cryst) 20 meq PO DAILY #60 tabs 11/08/21 Hospital Course Operations None Procedures None Summary of Care Provided Minutes Spent on Discharge: 32 Hospital Course: Patient was seen and examined in the emergency room at [facility], this 61-year-old white male was seen requesting services for alcohol detox, patient admitted to excessive alcohol intake on a daily basis. Patient's labs were remarkable for low potassium at 2.5, patient's magnesium was also low. Patient's blood alcohol level was 253, his tox screen was otherwise negative. Patient was admitted to PCU, he was seen in consultation by addiction administrator social welfare, and he was placed on a phenobarb taper. Patient had no evidence of DTs during his hospital stay, his magnesium and potassium were replaced. Patient agreed to follow-up as an outpatient with outpatient detox services. On 11/08/2021, patient was seen and examined: On examination he appeared in good health and spirits. Vital signs as documented. Skin warm and dry and without overt rashes. Neck without JVD, neck was supple, trachea midline, thyroid was normal. Lungs clear bilaterally, normal air movement was noted. Heart exam notable for regular rhythm, there is noted to be a 2/6 systolic murmur noted at the apex and left sternal border,no rubs or gallops. Abdomen unremarkable and without evidence of organomegaly, masses, or abdominal aortic enlargement. Bowel sounds are present, abdomen is not distended. Extremities nonedematous, no cyanosis was noted, no clubbing was noted. Neuro: Cranial nerves II through XII are grossly intact, no focal motor deficits were noted, sensation to light touch and pinprick intact, motor exam 5/5 throughout. Psych: Patient is alert and oriented x3, he does not appear anxious or depressed, he does not appear agitated. On 11/08/2021, patient was seen and examined and felt to be in stable condition for discharge home Weight / BMI Weight Weight: 69.4 kg Body Mass Index (BMI) 21.3 ABG / Lab / Microbiology Data Result Diagrams: 11/05/21 16:41 11/08/21 05:00 Laboratory: Laboratory Results - last 24 hr 11/07/21 11:27: POC Glucose 225 H 11/07/21 16:36: POC Glucose 191 H 11/07/21 22:08: POC Glucose 149 H 11/08/21 05:00: Sodium 140, Potassium 4.8, Chloride 106, Carbon Dioxide 30.0, Anion Gap 4 L, BUN 7, Creatinine 0.88, Estim Creat Clear Calc 88.72, Est GFR (MDRD) Af Amer 114, Est GFR (MDRD) Non-Af 94, BUN/Creatinine Ratio 8.0 L, Glucose 84, Calcium 7.7 L 11/08/21 06:28: POC Glucose 141 H D/C Instructions Discharge Diet: 1800 Calorie Control Diet Weight Bearing Status: Full weight bearing Please Follow Up With: Werner When: call in morning to set up counseling. Meaningful Use Info Meaningful Use Diagnoses (Choose all that apply): None applicable Discharge Plan Admission Admit Date/Time: 11/05/21 19:45 Primary Reason for Your Visit: alcohol detox Attending Provider: Asif Dutton Primary Care Provider: Dk Pathak NP Consulting Providers: Valeriy Connell Instructions Additional Instructions / Restrictions: Follow up with outpatient detox program Discharge Orders/Prescriptions Prescriptions: New multivitamin Tablet 1 tab PO DAILY Qty: 30 0RF Rx Instructions: over the counter gabapentin 300 mg Capsule 300 mg PO Q8H PRN PRN (Reason: neruropathic pain) Qty: 30 0RF Rx Instructions: for neuropathy from diabetes potassium chloride 10 mEq tablet,ER particles/crystals 20 meq PO DAILY Qty: 60 0RF phenobarbital 32.4 mg tablet 32.4 mg PO TID Qty: 9 0RF Continued omeprazole 40 mg capsule,delayed release(DR/EC) 40 mg PO DAILY hydrochlorothiazide 12.5 mg tablet 12.5 mg PO DAILY atorvastatin 10 mg tablet 10 mg PO DAILY amlodipine 5 mg tablet 5 mg PO DAILY ramipril 10 mg capsule 10 mg PO BID hydralazine 25 mg tablet 25 mg PO TID metformin 500 MG tablet 500 mg PO BID insulin detemir U-100 100 unit/mL (3 mL) Insulin Pen 5 unit SUBCUT DAILY Held Farxiga 10 mg Tablet 10 mg PO DAILY Hold Instructions: until you speak with your diabetic clinic or PCP. Discontinued meloxicam 15 mg Tablet 15 mg PO DAILY terbinafine HCl 250 mg Tablet 250 mg PO DAILY Referrals / Follow Up: Jacky Bey MD [Med Staff - Active Staff] - Within 1 Month Dk Pathak NP, [employer]GET[employer] GROWER-C [Primary Care Provider] - Within 2 Weeks Disposition Disposition (needs filled in before D/C Order can be placed): Home, Self Care Charges/Coding Visit Charges Inpatient E&M: 60399 Disch Hosp
[2021-11-08 10:47] VITALS: BP 114/95; PULSE 82; RESP 16; TEMP 37; O2SAT 98
== END 2021-11-08 11:25 | disposition home or self-care (01) | DRG 897 ==
LOC: ED 17:46 → PCU 18:28
PROVIDERS: Hospitalist; Emergency Provider Emergency Medicine; PCP Nurse Practitioner Family; Visit Provider Internal Medicine
DX: F10.239 Alcohol dependence with withdrawal, unspecified (principal); E83.51 Hypocalcemia; I49.5 Sick sinus syndrome; E87.8 Other disorders of electrolyte and fluid balance, not elsewhere classified; K70.10 Alcoholic hepatitis without ascites; I95.9 Hypotension, unspecified; E11.65 Type 2 diabetes mellitus with hyperglycemia; Z79.4 Long term (current) use of insulin; E78.00 Pure hypercholesterolemia, unspecified; E87.6 Hypokalemia; F17.210 Nicotine dependence, cigarettes, uncomplicated; E83.42 Hypomagnesemia; Z23 Encounter for immunization; Z95.2 Presence of prosthetic heart valve; I71.40 Abdominal aortic aneurysm, without rupture, unspecified; Z95.0 Presence of cardiac pacemaker; Z79.899 Other long term (current) drug therapy; T50.2X5A Adverse effect of carbonic-anhydrase inhibitors, benzothiadiazides and other diuretics, initial encounter
CPT/HCPCS: 36415; 80048; 80053; 80307; 82077; 82962; 83690; 83735; 85025; 97802; 99284; 99406; J7030; J7040; 90686; A4216

== ENCOUNTER 2021-11-11 13:33 | Inpatient (IN) | payer OTHER, SELFPAY ==
[2021-11-11 13:34] VITALS: BP 66/45; PULSE 90; RESP 16; TEMP 36.6; O2SAT 96; BMI 22.3
--- NOTE | 2021-11-11 13:40 | SUR.HOLD ---
low blood pressures reported to pipe turner. pt taken back to room for evaluation. alton sierra rn [id number]
--- NOTE | 2021-11-11 13:46 | CM.ED ---
SW received call from [facility] at the [facility]. He came to the counseling center and to the parking lot of psych services but could not bring him in for assessment as he fell asleep and passed out. Latha said that patient said I just want to but wants help. Latha said that they called the police to bring him to the ED. They were unable to complete an assessment for patient. Plan: Staff including die casting machine operator and RN updated Aurora [email or web address]
--- NOTE | 2021-11-11 14:03 | NURSING ---
janie in to talk with pt
--- NOTE | 2021-11-11 14:14 | CM.ED ---
BLANKA Note Referral Source: [facility] BLANKA received voice mail from Latha at Crisis. She said that patient said I want to and the MD told him last week to stop taking his insulin. Compalint: BLANKA met with patient
--- NOTE | 2021-11-11 14:25 | CM.ED ---
Addendum entered by Aurora Rush 11/11/21 15:55: Appearance: Disheveled Mood: Depressed Mood and affect Communication Pattern: Responds to questions Thought Process: No evidence of AH/VH General Intellectual functioning: Average Judgement: Impaired Insight: Impaired BLANKA conferred with Latha at [facility] and she noted that patient has been accessed by [facility] in May and September 2021. When patient is drunk he voices SI however, when he janine up he is not suicidal. Of note patient's BAL is 122 at the time of this assessment thus he is technically drunk. BLANKA consulted with MD Skelton and she spoke to patient who denied SI and does not feel patient needs inpatient psych hospitalization criteria. SW concurs with this assessment. Sitter d/c'd and staff aware. Plan: RAMP Original Note: BLANKA Note Referral Source: [facility] BLANKA received voice mail from Latha at [facility]. She said that patient said I want to and the MD told him last week to stop taking his insulin. Complaint: SW met with patient. Patient said I am a terrible person.. I can't stop drinking. Patient said that he was at the hospital's [facility] program and all they gave me was pills for 3 days and then I woke up and they kicked me out. Patient said I just had enough... I want to drink sleep and . SW asked why patient came today he said I can't stop drinking. SW asked patient if he wants to and he said well, If I can't stop drinking yeah. SW asked patient if he will be safe in the ED and he said I don't know.. there is no way to hurt myself in here. SW asked patient who would morn him if he and he said my dad, daughter and cousin and SW asked if that was enough to make him live,knowing their pain and he said not at this moment. SW asked if he had anything to live for and he said I don't have anything. SW asked patient patient's future and he voiced he has nothing to look forward to in the future. SW asked patient what would keep him safe and patient said I don't think anything SW asked about what type of help patient needs and patient said I need to go to a dual program for mental and medical problems. SW asked patient about his mental problems and he said I don't want to be here anymore. SW asked if there has been any changes in patient's mental health and patient said in the last week or so I have had terrible dreams... crazy dreams.. I don't like them. Per Latha at Crisis patient reported to her that he is a terrible drunk and all he wants is to eat, drink, and sleep. Patient voiced he is thinking of plans, per Latha, in crisis and said that he thought his drinking would do it. Marital Status: Gender: Male Sexual Orientation: Heterosexual Gender: Male Living Situation: Patient resides with dad and stated I take care of him and no one else resides in the house. Supports: Patient was asked about support and patient said nobody... my dad I guess. History: None Education and Employment History: Patient graduated high school. No learning issues. Patient is employed at [employer] and has worked there for 8 years. Mental Health Treatment and History: Patient said that he does not have a counselor anymore. Patient reports he had seen a counselor in the past, [facility] from [facility] (currently [facility]). Patient said that he previously was hospitalized in [place] for psych. Patient said that he doesn't have a psychiatrist anymore. SW asked about psych medications and patient said I don't know.. I don't think they worked.. they take like 6 months to work. Patient [facility] not [facility] a [facility] and only has received crisis services in the past. Patient has had crisis assessment in May and September 2021. Triggers and Stressors: this place.. jeremiah is suing me for $6,000 for old medical bills. Patient denied any other triggers and stressors Coping Skills: Patient reports that he tries to breathe normal or extra heavy and to calm down that way Abuse: Patient denied Substance Abuse: Patient reports his last drink was at 10:30am this morning and he had 1 tall boy and I could use another. Risk to Self and Others: Patient reports he is not suicidal at this moment. SW asked about a plan for suicide and patient said I just want to drink and sleep and . Patient reports no other suicide attempt.
--- NOTE | 2021-11-11 14:41 | EDS_ITS ---
HPI History of Present Illness Chief Complaint: Substance Abuse Detail of Chief Complaint: Alcoholism Informant: patient Narrative Narrative: Patient presents stating that he needs help to stop drinking. He reports drinking 3-4 tall boys a day. He states he is tried to stop drinking on his own and just cannot. He was actually admitted to the hospital last week for detox. He was discharged on Wednesday when 180 was not available for immediate follow-up when he started drinking again immediately. He states he just did not know where else to go and came here for help. Triage note documents a statement he made about he just wants to sleep, drink, and . When I asked him about this he states that he does not want to hurt himself or anyone else, but if he cannot get his drinking under control he does not care if he wakes up. PFSH PFS Medical History Adrenal nodule Alcohol dependence Alcoholism Alcoholism in remission Aortic aneurysm Ascending aortic dissection (~2005) Cardiac pacemaker in situ (~06/2016) Diabetes mellitus, type II Essential hypertension Hiatal hernia HTN (hypertension) Left carotid bruit Non-sustained ventricular tachycardia Pacemaker Pleuritic chest pain Pure hypercholesterolemia Right bundle branch block (RBBB) Shortness of breath Sick sinus syndrome Smoker Substance abuse SVT (supraventricular tachycardia) Thoracic aortic aneurysm Tobacco use Home Medications omeprazole 40 mg capsule,delayed release 40 mg PO DAILY reflux 06/10/18 [History Last Taken 11/05/21] metformin 500 mg tablet 500 mg PO BID diabetes 01/21/19 [History Last Taken 11/05/21] amlodipine 5 mg tablet 5 mg PO DAILY HEART 10/17/20 [History Last Taken 11/05/21] atorvastatin 10 mg tablet 10 mg PO DAILY CHOLESTEROL 10/17/20 [History Last Taken 11/05/21] hydralazine 25 mg tablet 25 mg PO TID BP 10/17/20 [History Last Taken 11/05/21] hydrochlorothiazide 12.5 mg tablet 12.5 mg PO DAILY BP 10/17/20 [History Last Taken 11/05/21] ramipril 10 mg capsule 10 mg PO BID BP 10/17/20 [History Last Taken 11/05/21] dapagliflozin 10 mg tablet (Farxiga) 10 mg PO DAILY DIABETES 09/30/21 [History Last Taken 11/04/21] insulin detemir U-100 100 unit/mL (3 mL) subcutaneous pen 5 unit subcut DAILY DM 09/30/21 [History Last Taken 11/05/21] multivitamin 1 tab PO DAILY #30 tabs 11/05/21 [Rx Last Taken Unknown] gabapentin 300 mg capsule 300 mg PO Q8H PRN PRN neruropathic pain #30 caps 11/08/21 [Rx Last Taken Unknown] phenobarbital 32.4 mg tablet 32.4 mg PO TID #9 tabs 11/08/21 [Rx Last Taken Unknown] potassium chloride 10 mEq tablet,extended release(part/cryst) 20 meq PO DAILY #60 tabs 11/08/21 [Rx Last Taken Unknown] Allergy/AdvReac Type Severity Reaction Status Date / Time No Known Allergies Allergy Verified 11/11/21 13:34 Family History Father CAD (coronary artery disease) Mother Dementia Surgical History H/O aortic valve replacement H/O cardiac catheterization History of aortic aneurysm repair (~2017) History of aortic valve replacement with bioprosthetic valve (~2017) History of cataract surgery History of hernia repair Social History Smoking Status: Current every day smoker tobacco type: cigarettes alcohol intake: current substance use type: former substance user caffeine: Yes Type: coffee Number of servings: 3 ROS ROS ED Constitutional Constitutional ED: Denies chills or fever(s) Eyes Eyes: Denies change in vision or discharge from eye(s) ENT ENT ED: Denies discharge from eye(s), rhinorrhea or sore throat Cardiovascular Cardiovascular: Denies chest pain or palpitations Respiratory/Chest Respiratory/Chest: Denies cough or dyspnea Gastrointestinal Gastrointestinal: Denies abdominal pain, diarrhea, nausea or vomiting Genitourinary Genitourinary ED: Denies difficulty urinating or dysuria Musculoskeletal Musculoskeletal: Denies back pain or extremity pain Integumentary Denies Abrasions or rash Neurologic Neurologic: Denies headache(s) or weakness Psychiatric Psychiatric: Denies suicidal ideation Allergic/Immunologic Allergic/Immunologic ED: Denies lip swelling or urticaria EXAM Physical Exam Const Vital Signs: 11/11/21 13:34 Temperature 97.9 F Temperature Source Temporal Pulse Rate 90 Respiratory Rate 16 Blood Pressure 66/45 L Blood Pressure Mean 52 Pulse Ox 96 Oxygen Delivery Method Room Air Positive well nourished and well developed General Appearance ED: well developed HEENT Reports normocephalic and head/scalp atraumatic Eyes PERRL and EOMs intact bilaterally Neck supple Chest Wall inspection of chest normal and palpation of chest normal Resp normal respiratory effort and clear to auscultation bilaterally Cardio regular rate and regular rhythm GI normal to inspection, nondistended, normoactive bowel sounds Palpation: soft Extremity normal to inspection Neuro oriented x3 and no sensory deficits noted Sensorium / Orientation: alert Motor Exam: strength 5/5 throughout Psych mental status grossly normal Skin no rashes or lesions noted MDM MDM MDM Narrative Medical decision making narrative: Blood pressure was in low on arrival at 66/45. The time of my examination is systolic blood pressure is 97. IV fluids are ordered. Lab work obtained along with EtOH level and tox screen. Lab Data Attestation: I reviewed the patient's lab results. Labs: Laboratory Results - last 24 hr 11/11/21 11/11/21 11/11/21 13:45 13:45 13:45 WBC 5.0 RBC 3.00 L Hgb 11.3 L Hct 33.2 L MCV 110.7 H MCH 37.7 H MCHC 34.0 RDW Std Deviation 71.1 H RDW Coeff of Kalpana 17.3 H Plt Count 241 MPV 10.7 Immature Gran % (Auto) 0.600 Neut % (Auto) 57.5 Lymph % (Auto) 29.7 [place] % (Auto) 11.2 H Eos % (Auto) 0.4 Baso % (Auto) 0.6 Absolute Neuts (auto) 2.9 Absolute Lymphs (auto) 1.48 Nucleated RBC % 0 Platelet Estimate ADEQUATE Anisocytosis 1+ Macrocytosis 1+ Sodium 137 Potassium 3.5 Chloride 98 Carbon Dioxide 28.0 Anion Gap 11 BUN 10 Creatinine 1.28 Estim Creat Clear Calc 63.79 Est GFR (MDRD) Af Amer 74 Est GFR (MDRD) Non-Af 61 BUN/Creatinine Ratio 7.8 L Glucose 284 H Calcium 7.9 L Total Bilirubin 0.60 Direct Bilirubin 0.33 H AST 80 H ALT 55 Alkaline Phosphatase 133 H Total Protein 5.1 L Albumin 2.2 L Globulin 2.9 Ethyl Alcohol 118.0 Treatment and Re-Evaluation Narrative: CBC is unremarkable. Chemistry studies normal other than a glucose of 284. LFTs significant only for an alk phos of 133 and a direct bili of 0.33. EtOH is 118. Urine tox screen is pending. At this point patient will require hospitalization for detox and then appropriate follow-up with 180. We will speak with the hospitalist. Blood pressure at this time is 96/70. Discharge Plan Triage Chief Complaint: Substance Abuse ED Provider: Radha Skelton Dx/Rx/DC Orders Clinical Impression: ETOH abuse, Desire for detoxification Prescriptions: No Action omeprazole 40 mg capsule,delayed release(DR/EC) 40 mg PO DAILY hydrochlorothiazide 12.5 mg tablet 12.5 mg PO DAILY atorvastatin 10 mg tablet 10 mg PO DAILY amlodipine 5 mg tablet 5 mg PO DAILY ramipril 10 mg capsule 10 mg PO BID hydralazine 25 mg tablet 25 mg PO TID metformin 500 MG tablet 500 mg PO BID insulin detemir U-100 100 unit/mL (3 mL) Insulin Pen 5 unit SUBCUT DAILY Farxiga 10 mg Tablet 10 mg PO DAILY Hold Instructions: until you speak with your diabetic clinic or PCP. multivitamin Tablet 1 tab PO DAILY Qty: 30 0RF Rx Instructions: over the counter gabapentin 300 mg Capsule 300 mg PO Q8H PRN PRN (Reason: neruropathic pain) Qty: 30 0RF Rx Instructions: for neuropathy from diabetes potassium chloride 10 mEq tablet,ER particles/crystals 20 meq PO DAILY Qty: 60 0RF phenobarbital 32.4 mg tablet 32.4 mg PO TID Qty: 9 0RF Primary Care Provider: Dk Pathak NP Referrals: Dk Pathak INSTRUCTIONAL SYSTEMS DESIGN CONSULTANT, INSTRUCTIONAL SYSTEMS DESIGN CONSULTANT-C [Primary Care Provider] - Disposition Disposition: Acute Care Hospital [facility]
[2021-11-11 14:44] LABS: Absolute Lymphocyte Count 1.48 X10^3/uL (0.83-4.51); Absolute Neutrophil Count 2.9 X10^3/uL (2.0-7.7); Basophil# 0.03 X10^3/uL; Basophil% 0.6 % (0-1); Eosinophil# 0.02 X10^3/uL; Eosinophils% 0.4 % (0-5); Hematocrit 33.2 % (40-54); Hemoglobin 11.3 g/dL (13.0-16.5); Lymphocyte # 1.48 X10^3/ul (0.83-4.51); Lymphocyte % 29.7 % (19-41); Mean Corpuscular Hgb 37.7 pg (27.0-32.0); Mean Corpuscular Volume 110.7 fL (80-94); Mean Platelet Vol. 10.7 fl (6.2-12.0); Monocyte# 0.56 X10^3/uL; Monocyte% 11.2 % (0-10); NRBC Flagged by Analyzer 0 % (0-5); Neutrophil # 2.87 X10^3/uL (2.7-7.7); Neutrophil % 57.5 % (47-70); POSITIVE MORPHOLOGY YES; Platelet Count 241 K/mm3 (150-450); RBC Distribution Width CV 17.3 % (11.6-14.6); RBC Distribution Width SD 71.1 fl (35.1-43.9)
[2021-11-11 14:46] LABS: Differential Indicated SCAN CRITERIA MET
[2021-11-11] MEDS: 0.9% Normal Saline 1,000 ML 1000 ML IV (14:52)
[2021-11-11 15:02] LABS: AST(SGOT) 80 U/L (15-37); Alanine Aminotransfer ALT/SGPT 55 U/L (16-61); Albumin, Serum 2.2 g/dL (3.2-5.0); Alkaline Phosphatase 133 U/L (45-117); Anion Gap 11 (5-15); BUN 10 mg/dL (7-18); BUN/Creat Ratio 7.8 RATIO (10-20); Bilirubin, Direct 0.33 mg/dL (0.00-0.30); Calcium,Total 7.9 mg/dL (8.5-10.1); Chloride 98 mmol/L (98-107); Creatinine, Serum 1.28 mg/dL (0.70-1.30); EST Glomerular Filtration Rate 61 mL/min (>60); Est Glom Filt Rate - Afr Amer 74 mL/min (>60); Estimated Creatinine Clearance 63.79 ml/min; Globulin 2.9 g/dL (2.2-4.2); Glucose 284 mg/dL (74-106); Potassium 3.5 mmol/L (3.5-5.1); Protein, Total 5.1 g/dL (6.4-8.2); Sodium Level 137 mmol/L (136-145)
[2021-11-11 15:05] LABS: Anisocytosis 1+; Macrocytosis 1+; Platelet Estimate ADEQUATE (ADEQ)
--- NOTE | 2021-11-11 15:43 | HP.PCM.HOS_ITS ---
HPI - General General Date of Admission: 11/11/21 Date of Service: 11/11/21 Chief Complaint: EtOH Abuse, Withdrawal HPI Narrative The patient is a 61 y/o M w/ PMHx: Chronic macrocytic anemia, Diabetes mellitus type II, Hx sick sinus syndrome s/p pacemaker placement, Hx Assending aortic dissection s/p repair, Valvular heart disease s/p AVR with bioprosthetic valve, HTN, HLD, GERD, EtOH abuse (3-4 Tall Boys daily) with recent detoxification treatment 11/05/21 with discharge 11/08/21 to home with planned follow-up with 180; however, he noted they were not immediately available thus he returned home and started to drink again prompting him to return again now for assist to again detox and create a more aggressive follow-up plan with 180 to assure he does not immediately start drinking again. Patient withdrawal symptoms currently mild tremors, tactile disturbances and nausea as well as mild agitation with last alcohol intake at approximately 10 in the morning on day of presentation. In the ED patient reportedly stated that he wanted to just sleep, drink and however when this was further investigated he states that he does not want hurt himself or anyone but he cannot get his drinking under control and is depressed stating that he does not always necessarily care if he wakes up or not. Work-up in the ED included T97.9, heart rate 90, BP 106/49, respiratory rate 16, 96% on room air, CBC with WC 5, hemoglobin 11.3, MCV 110.7, platelet 241 without marked shift, CMP with glucose 284, direct bilirubin 0.33, AST/ALT 80/55, alk phos 133, ethyl alcohol level 118. In the ED patient administered a normal saline 1 L bolus followed by maintenance IV fluids at 150 cc/hr. [facility] Medical History Adrenal nodule Alcohol dependence Alcoholism Alcoholism in remission Aortic aneurysm Ascending aortic dissection (~2005) Cardiac pacemaker in situ (~06/2016) Diabetes mellitus, type II Essential hypertension Hiatal hernia HTN (hypertension) Left carotid bruit Non-sustained ventricular tachycardia Pacemaker Pleuritic chest pain Pure hypercholesterolemia Right bundle branch block (RBBB) Shortness of breath Sick sinus syndrome Smoker Substance abuse SVT (supraventricular tachycardia) Thoracic aortic aneurysm Tobacco use Home Medications omeprazole 40 mg capsule,delayed release 40 mg PO DAILY reflux 06/10/18 [History Last Taken 11/11/21] metformin 500 mg tablet 500 mg PO BID diabetes 01/21/19 [History Last Taken 11/11/21] amlodipine 5 mg tablet 5 mg PO DAILY HEART 10/17/20 [History Last Taken 11/11/21] atorvastatin 10 mg tablet 10 mg PO DAILY CHOLESTEROL 10/17/20 [History Last Taken 11/11/21] hydralazine 25 mg tablet 25 mg PO TID BP 10/17/20 [History Last Taken 11/11/21] hydrochlorothiazide 12.5 mg tablet 12.5 mg PO DAILY BP 10/17/20 [History Last Taken 11/11/21] ramipril 10 mg capsule 10 mg PO BID BP 10/17/20 [History Last Taken 11/11/21] dapagliflozin 10 mg tablet ([place]) 10 mg PO DAILY DIABETES 09/30/21 [History Last Taken 11/11/21] insulin detemir U-100 100 unit/mL (3 mL) subcutaneous pen 5 unit subcut DAILY DM 09/30/21 [History Last Taken 11/11/21] gabapentin 300 mg capsule 300 mg PO Q8H PRN PRN neruropathic pain #30 caps 11/08/21 [Rx Last Taken 11/11/21] multivitamin 1 tab PO DAILY supplement 11/11/21 [History Last Taken 11/10/21] phenobarbital 32.4 mg tablet 32.4 mg PO TID seizures 11/11/21 [History Last Ta oumar Unknown] potassium chloride 10 mEq tablet,extended release(part/cryst) 20 meq PO DAILY supplement 11/11/21 [History Last Taken Unknown] Allergy/AdvReac Type Severity Reaction Status Date / Time No Known Allergies Allergy Verified 11/11/21 13:34 Family History Father CAD (coronary artery disease) Mother Dementia Surgical History H/O aortic valve replacement H/O cardiac catheterization History of aortic aneurysm repair (~2016) History of aortic valve replacement with bioprosthetic valve (~2016) History of cataract surgery History of hernia repair Social History Smoking Status: Current every day smoker tobacco type: cigarettes alcohol intake: current substance use type: former substance user caffeine: Yes Type: coffee Number of servings: 3 ROS ROS Narrative Admission Review of Systems: CONSTITUTIONAL: No weight loss, fever, chills, + weakness or fatigue. HEENT: Eyes: No visual loss, blurred vision, double vision or yellow sclerae. Ears, Nose, Throat: No hearing loss, sneezing, congestion, runny nose or sore t hroat. SKIN: No rash or itching, lesions, wounds. CARDIOVASCULAR: No chest pain, chest pressure or chest discomfort, palpitations, edema, orthopnea, syncopal events. RESPIRATORY: No shortness of breath, cough or sputum, wheezing, hemoptysis. GASTROINTESTINAL: + anorexia, nausea, No vomiting or diarrhea, abdominal pain, melena, BRBPR. GENITOURINARY: No dysuria, frequency, urgency or retention. NEUROLOGICAL: + Tactile disturbances, mild tremors, No headache, dizziness, syncope, paralysis, ataxia, numbness or tingling in the extremities, focal weakness, change in bowel or bladder control, seizure. MUSCULOSKELETAL: + muscle, back pain, joint pain or stiffness. HEMATOLOGIC: + anemia, bleeding or bruising. LYMPHATICS: No enlarged nodes. No history of splenectomy. PSYCHIATRIC: + history of depression or anxiety. ENDOCRINOLOGIC: + reports of sweating, No cold or heat intolerance. No polyuria or polydipsia. ALLERGIES: No history of asthma, hives, eczema or rhinitis. Vital Signs Vital Signs Vital Signs: 11/11/21 13:34 Temperature 97.9 F Temperature Source Temporal Pulse Rate 90 Respiratory Rate 16 Blood Pressure 66/45 L Blood Pressure Mean 52 Pulse Ox 96 Oxygen Delivery Method Room Air Weight Weight: 160 lb Body Mass Index (BMI) 22.3 Physical Exam Narrative Physical Examination: General: Awake, alert, oriented x 3 and cooperative, seated upright in ED bed, fatigued, again reconfirmed the patient has no suicidal ideations. Skin: Normal color, normal turgor, no icterus, no cyanosis except occasional staged ecchymoses. HEENT: AT/NC, EOMI, PERRLA, mildly dry MM, no carotid bruits or JVD noted. Lungs: Mild diminished, greater bases, appropriate rate and effort, no rales, ronchi or wheezing. Heart: Mildly tachycardic with regular rhythm; no gallop, rub audible. Abdomen: Soft, NTTP, ND, mildly hyperactive BS, mild HM. Extremities: No cyanosis, clubbing, or edema. Neurological: Patient awake, alert, oriented as noted, cognitive function appears baseline intact; pupils equally reactive to light and accommodation, cranial nerves II-XII grossly normal, moving all 4 extremities, no focal deficits, strength mildly to moderately global decrease secondary to acute presentation, mildly tremulous, anxious. Psychiatric: Affect appears mildly anxious, mildly agitated, admits to depressive feelings but denies any suicidal ideation. Results Lab / Micro Data Result Diagrams: 11/11/21 13:45 11/11/21 13:45 Labs: Laboratory Results - last 24 hr 11/11/21 13:45: WBC 5.0, RBC 3.00 L, Hgb 11.3 L, Hct 33.2 L, MCV 110.7 H, MCH 37.7 H, MCHC 34.0, RDW Std Deviation 71.1 H, RDW Coeff of Kalpana 17.3 H, Plt Count 241, MPV 10.7, Immature Gran % (Auto) 0.600, Neut % (Auto) 57.5, Lymph % (Auto) 29.7, [place] % (Auto) 11.2 H, Eos % (Auto) 0.4, Baso % (Auto) 0.6, Absolute Neuts (auto) 2.9, Absolute Lymphs (auto) 1.48, Nucleated RBC % 0, Platelet Estimate ADEQUATE, Anisocytosis 1+, Macrocytosis 1+ 11/11/21 13:45: Sodium 137, Potassium 3.5, Chloride 98, Carbon Dioxide 28.0, Anion Gap 11, BUN 10, Creatinine 1.28, Estim Creat Clear Calc 63.79, Est GFR (MDRD) Af Amer 74, Est GFR (MDRD) Non-Af 61, BUN/Creatinine Ratio 7.8 L, Glucose 284 H, Calcium 7.9 L, Total Bilirubin 0.60, Direct Bilirubin 0.33 H, AST 80 H, ALT 55, Alkaline Phosphatase 133 H, Total Protein 5.1 L, Albumin 2.2 L, Globulin 2.9 11/11/21 13:45: Ethyl Alcohol 118.0 Assessment & Plan Assessment/Plan (1) Alcohol withdrawal: PLAN: Plan The patient is a 61 y/o M w/ PMHx: Chronic macrocytic anemia, Diabetes mellitus type II, Hx sick sinus syndrome s/p pacemaker placement, Hx Assending aortic dissection s/p repair, Valvular heart disease s/p AVR with bioprosthetic valve, HTN, HLD, GERD, EtOH abuse (3-4 Tall Boys daily) with recent detoxification treatment 11/05/21 with discharge 11/08/21 to home with planned follow-up with 180; however, he noted they were not immediately available thus he returned home and started to drink again prompting him to return again now for assist to again detox and create a more aggressive follow-up plan with 180 to assure he does not immediately start drinking again. #1. Acute EtOH Withdrawal: Will admit to [facility], routine labs obtained in the ED up on presentation. Given ongoing interest in sobriety, will initiate and continue on protocol with taper course of Phenobarbital, scheduled gabapentin for seizure prophylaxis, as needed Bentyl, Vistaril, IV fluids, IV antiemetics, Tylenol as needed for pain. Will consult Case management for assistance for transition to next level of rehabilitation care. Mag, phos pending. Given patient recent discharge on the weekend with unsuccessful follow-up with 180 would greatly benefit to assure next discharge plan occurs on a weekday for improved potential follow-up. #2. Hypotension with history hypertension: We will temporarily hold patient hypertensive regimen including amlodipine, hydralazine, hydrochlorothiazide as well as ramipril, add back or adjust as needed, continue judicious hydration. #3. Elevated LFT, mild bilirubin elevation: Admission total bili 0.60, direct bilirubin 0.23, AST/LT 80/55, alk phos 133, likely secondary to chronic alcohol abuse, AST actually decreased from most recent presentation. #4. Diabetes mellitus type II: Hold oral home regimen, continue home insulin regimen, ADA diet, accu checks w/ ISS. #5. Chronic macrocytic anemia: Admission hemoglobin 11.3, MCV 110.7, baseline hemoglobin vacillates between 12-14, initiated on supplementations as noted, trend CBC as needed. #6. Hx Sick Sinus Syndrome: s/p pacemaker placement. #7. Valvular heart disease: Status post bioprosthetic AV replacement, 04/02/2020 echocardiogram with EF 70%, severe concentric LVH, trivial MVI, mild TVI, stable appearing bioprosthetic AV apparatus, RVSP 19 mmHg, transmitral Doppler flow suggestive of impaired relaxation LV, ICD/pacer leads identified. #8. History ascending aortic dissection: Status post repair, most recent CT noted 09/08/2019 with expected appearance of repaired normal diameter of the aorta. #9. Hyperlipidemia: We will continue statin therapy. #10. Tobacco Abuse: Encouraged cessation, inpatient consultation per RT, NR if desired. #11. GERD: We will continue patient on PPI. #12. DVT prophylaxis: Given current presentation admission type low risk, encourage ambulation however if any concerns arise may add SCDs and chemoprophylaxis if felt appropriate. Charges/Coding Visit Charges Inpatient E&M: 58919 Init Hosp L3
[2021-11-11 15:50] VITALS: BP 108/59; PULSE 83; RESP 16; TEMP 36.6; O2SAT 97
[2021-11-11 15:54] VITALS: BP 90/59; PULSE 77; RESP 18; TEMP 36.6; O2SAT 98
[2021-11-11 16:06] LABS: Bedside Glucose 309 mg/dL (74-106)
[2021-11-11 16:21] VITALS: BP 106/49; PULSE 114; RESP 18; O2SAT 98
--- NOTE | 2021-11-11 16:25 | CM.ED ---
SW called and left voice mail message for Austin, addiction therapist, advising of patient's admission to [facility] program. Plan: [facility] admission.
[2021-11-11 17:22] LABS: Amphetamine Urine VISTA NEGATIVE (<1000 ng/mL); Barbiturate Urine VISTA POSITIVE (< 200 ng/mL); Benzodiazepine Urine VISTA NEGATIVE (< 200 ng/mL); Cocaine Urine VISTA NEGATIVE (< 300 ng/mL); Ecstacy Urine VISTA NEGATIVE (< 500 ng/mL); Methadone Urine VISTA NEGATIVE (< 300 ng/mL); PCP Urine VISTA NEGATIVE (< 25 ng/mL); THC Urine VISTA NEGATIVE (< 50 ng/mL); Vista UDS pH Range 7
[2021-11-11 17:38] VITALS: BMI 21.1
[2021-11-11 17:45] VITALS: BP 100/48; PULSE 96; RESP 16; TEMP 36.5; O2SAT 98
[2021-11-11 18:29] LABS: Magnesium 1.8 mg/dL (1.6-2.6); Phosphorus 3.4 mg/dL (2.5-4.9)
[2021-11-11] MEDS: hydrOXYzine PAM 25 MG Capsule 50 MG PO (18:50)
[2021-11-11] MEDS: Phenobarbital 32.4 MG Tablet 64.8 MG PO ×2 (18:51→22:33)
[2021-11-11] MEDS: Pantoprazole Sodium 40 MG Tablet PO (18:51)
[2021-11-11] MEDS: Dicyclomine 10 MG Capsule 20 MG PO (18:51)
[2021-11-11] MEDS: 0.9% Saline Lock 10 ML Syringe IV (18:57)
[2021-11-11] MEDS: 0.9% Normal Saline 1,000 ML 100 ML IV (18:57)
[2021-11-11 22:00] VITALS: BP 88/65; PULSE 68; RESP 20; TEMP 36.6; O2SAT 94
[2021-11-11] MEDS: Insulin Lispro 100 UNIT/ML INSULN.PEN SC (22:33)
[2021-11-11] MEDS: 0.9% Normal Saline 1,000 ML 150 ML IV (22:36)
[2021-11-11 22:40] LABS: Bedside Glucose 340 mg/dL (74-106)
[2021-11-12] VITALS (10 sets, daily range): BP systolic 86–128; BP diastolic 52–86; PULSE 60–79; RESP 12–18; TEMP 36.4–36.8; O2SAT 96–100
[2021-11-12] MEDS: 0.9% Normal Saline 1,000 ML 999 ML IV (03:04)
[2021-11-12] MEDS: Acetaminophen 325 MG Tablet 650 MG PO ×3 (04:46→20:39)
[2021-11-12] MEDS: 0.9% Normal Saline 1,000 ML 150 ML IV ×3 (04:47→20:39)
[2021-11-12] MEDS: Phenobarbital 32.4 MG Tablet 64.8 MG PO ×5 (06:29→22:51)
[2021-11-12 06:50] LABS: Bedside Glucose 145 mg/dL (74-106)
--- NOTE | 2021-11-12 07:27 | PN.HOSP_ITS ---
Subjective Subjective Patient is a 61-year-old gentleman with multiple comorbidities admitted with acute alcohol withdrawal Objective Data Objective Data Vital Signs: Vital Signs Temp Pulse Resp BP Pulse Ox O2 Del Method 97.9 F 61 14 121/86 H 96 Room Air 11/12/21 04:00 11/12/21 04:00 11/12/21 04:00 11/12/21 04:00 11/12/21 04:00 11/12/21 04:00 Oxygen Delivery Method Room Air Weight: 68.8 kg Body Mass Index (BMI) 21.1 Intake & Output: Intake and Output for Last 24 Hours 11/10/21 11/11/21 11/12/21 23:59 23:59 23:59 Intake Total 1365 / 1565 2327.5 / 2327.5 Balance 1365 / 1565 2327.5 / 2327.5 Lab / Micro Data Result Diagrams: 11/11/21 13:45 11/11/21 13:45 Labs: Laboratory Results - last 24 hr 11/11/21 13:45: WBC 5.0, RBC 3.00 L, Hgb 11.3 L, Hct 33.2 L, MCV 110.7 H, MCH 37.7 H, MCHC 34.0, RDW Std Deviation 71.1 H, RDW Coeff of Kalpana 17.3 H, Plt Count 241, MPV 10.7, Immature Gran % (Auto) 0.600, Neut % (Auto) 57.5, Lymph % (Auto) 29.7, [place] % (Auto) 11.2 H, Eos % (Auto) 0.4, Baso % (Auto) 0.6, Absolute Neuts (auto) 2.9, Absolute Lymphs (auto) 1.48, Nucleated RBC % 0, Platelet Estimate ADEQUATE, Anisocytosis 1+, Macrocytosis 1+ 11/11/21 13:45: Sodium 137, Potassium 3.5, Chloride 98, Carbon Dioxide 28.0, Anion Gap 11, BUN 10, Creatinine 1.28, Estim Creat Clear Calc 63.79, Est GFR (MDRD) Af Amer 74, Est GFR (MDRD) Non-Af 61, BUN/Creatinine Ratio 7.8 L, Glucose 284 H, Calcium 7.9 L, Total Bilirubin 0.60, Direct Bilirubin 0.33 H, AST 80 H, ALT 55, Alkaline Phosphatase 133 H, Total Protein 5.1 L, Albumin 2.2 L, Globulin 2.9 11/11/21 13:45: Ethyl Alcohol 118.0 11/11/21 13:45: Phosphorus 3.4, Magnesium 1.8 11/11/21 13:51: POC Glucose 309 H 11/11/21 16:45: Urine Opiates Screen NEGATIVE, Urine Methadone Screen NEGATIVE, Ur Barbiturates Screen POSITIVE H, Ur Phencyclidine Scrn NEGATIVE, Ur Am phetamines Screen NEGATIVE, MDMA (Ecstasy) Screen NEGATIVE, U Benzodiazepines Scrn NEGATIVE, Urine Cocaine Screen NEGATIVE, U Cannabinoids Screen NEGATIVE, Ur Drug Screen Comment 11/11/21 22:17: POC Glucose 340 H 11/12/21 06:28: POC Glucose 145 H Physical Exam Narrative GENERAL: Appears tremulous HEENT: Atraumatic; normocephalic EYES; Anicteric, Normal Conjunctiva NECK; supple, normal thyroid, RESPIRATORY: Diminished to auscultation CARDIOVASCULAR: Regular S1 S2, GI: soft, normoactive bowel sounds, : No Renal angle tenderness; EXTREMITIES: No edema, no clubbing, MUSCULOSKELETAL: no muscle wasting NEURO: Awake; no lateralizing signs. SKIN: No Rash PSYCH; Flat affect Assessment & Plan Assessment/Plan (1) Alcohol withdrawal: PLAN: Plan Patient is a 61-year-old gentleman with multiple comorbidities admitted with acute alcohol withdrawal 1. Acute alcohol withdrawal ? Admitted to regular nursing floor managed with phenobarb taper. Patient progressed being monitored with CIWA protocol 2. Diabetes mellitus type II -Continue patient on his home regimen in addition to Accu-Cheks before meals and at bedtime with sliding scale coverage 3. Sick sinus syndrome ? Status post pacemaker placement 4. History of ascending aortic dissection ? Status post repair 5. Valvular heart disease - history of aortic valve replacement with bioprosthetic material 6. Hypertension - Blood pressure controlled, home medications continued with dose adjustment as needed 7. Dyslipidemia -Patient is on statin therapy, continued at home dose 8. GERD ? On PPI Charges/Coding Visit Charges Inpatient E&M: 46313 Subs Hosp L2
[2021-11-12] MEDS: Thiamine Hydrochloride 100 MG Tablet PO (09:17)
[2021-11-12] MEDS: Atorvastatin Calcium 10 MG Tablet PO (09:17)
[2021-11-12] MEDS: Pantoprazole Sodium 40 MG Tablet PO (09:17)
[2021-11-12] MEDS: Folic Acid 1 MG Tablet PO (09:17)
[2021-11-12] MEDS: Insulin Glargine-YFGN 100 UNIT/ML Pen SC (09:17)
[2021-11-12] MEDS: hydrOXYzine PAM 25 MG Capsule 50 MG PO (09:21)
[2021-11-12] MEDS: Insulin Lispro 100 UNIT/ML INSULN.PEN SC ×3 (11:50→22:52)
[2021-11-12] MEDS: Glucerna Shake 120 ML LIQUID PO ×2 (11:57→17:05)
[2021-11-12 12:10] LABS: Bedside Glucose 314 mg/dL (74-106)
--- NOTE | 2021-11-12 14:00 | PCA ---
[facility] called to speak with patient, states that they will be here on Wednesday11/14/2021 to pick patient up for discharge.
[2021-11-12 16:40] LABS: Bedside Glucose 224 mg/dL (74-106)
[2021-11-12] MEDS: 0.9% Saline Lock 10 ML Syringe IV (22:51)
[2021-11-12 23:16] LABS: Bedside Glucose 184 mg/dL (74-106)
[2021-11-13] VITALS (8 sets, daily range): BP systolic 104–164; BP diastolic 66–107; PULSE 60–80; RESP 16–18; TEMP 36.3–37.1; O2SAT 95–100
[2021-11-13] MEDS: Acetaminophen 325 MG Tablet 650 MG PO ×3 (02:47→22:15)
[2021-11-13] MEDS: Phenobarbital 32.4 MG Tablet 64.8 MG PO ×6 (02:47→22:15)
[2021-11-13 06:50] LABS: Bedside Glucose 94 mg/dL (74-106)
--- NOTE | 2021-11-13 07:50 | PCM.PN.HOSP ---
Subjective Subjective Patient seen less tremulous compared to previous day patient blood pressure however remains elevated. Adjustment made to patient antihypertensive regimen Objective Data Objective Data Vital Signs: Vital Signs Temp Pulse Resp BP Pulse Ox O2 Del Method 97.3 F L 61 16 151/107 H 99 Room Air 11/13/21 06:35 11/13/21 06:35 11/13/21 06:35 11/13/21 06:35 11/13/21 06:35 11/13/21 06:35 Oxygen Delivery Method Room Air Weight: 68.8 kg Body Mass Index (BMI) 21.1 Intake & Output: Intake and Output for Last 24 Hours 11/11/21 11/12/21 11/13/21 23:59 23:59 23:59 Intake Total 1365 / 1565 5002.5 / 5002.5 Balance 1365 / 1565 5002.5 / 5002.5 Medical Nutrition Assessment Dietitian: Malnutrition Criteria Met Start: 11/12/21 10:54 Freq: Status: Active Protocol: Document 11/12/21 10:54 RMA (Rec: 11/12/21 10:54 RMA [id number]) Nutrition Malnutrition Evidence of Malnutrition Exists Yes Malnutrition (moderate): Social/Behavioral/ Environmental Evidenced By Suboptimal Energy Intake ( Moderate),Weight Loss ( Moderate) Clinical Problem Chronic Disease or Condition Related Malnutrition Etiology Moderate pro-rodriguez malnutrition in the context of social circumstance related to ETOH abuse and inadequate oral intake Signs/Symptoms as evidenced by PO meeting less than 75% estimated nutrition needs and ~8% wt loss x past 2-3 months Status Active Problem Recommendation Dietitian Recommendations/Changes Will adjust diet to 2000 calorie/consistent carbohydrate. Will change 240ml glucerna shake TID with meals to 120 ml TID w/ medpass instead. Diet education as pt willing prior to d/c. Lab / Micro Data Result Diagrams: 11/11/21 13:45 11/11/21 13:45 Labs: Laboratory Results - last 24 hr 11/12/21 11:47: POC Glucose 314 H 11/12/21 16:19: POC Glucose 224 H 11/12/21 22:49: POC Glucose 184 H 11/13/21 06:32: POC Glucose 94 Physical Exam Narrative GENERAL: Appears tremulous HEENT: Atraumatic; normocephalic EYES; Anicteric, Normal Conjunctiva NECK; supple, normal thyroid, RESPIRATORY: Diminished to auscultation CARDIOVASCULAR:? Regular S1 S2, GI:? soft, normoactive bowel sounds, : No Renal angle tenderness; EXTREMITIES:? No edema, no clubbing, MUSCULOSKELETAL:? no muscle wasting NEURO:? Awake;? no lateralizing signs. SKIN:? No Rash PSYCH; Flat? affect Assessment & Plan Assessment/Plan (1) Alcohol withdrawal: PLAN: Plan Patient is a 61-year-old gentleman with multiple comorbidities admitted with acute alcohol withdrawal 1.? Acute alcohol withdrawal ? Admitted to regular nursing floor managed with phenobarb taper.? Patient progressed being monitored with CIWA protocol ? 11/13/2021 less tremulous compared to previous day 2.? Diabetes mellitus type II -Continue patient on his home regimen in addition to Accu-Cheks before meals and at bedtime with sliding scale coverage 3.? Sick sinus syndrome ? Status post pacemaker placement 4.? History of ascending aortic dissection ? Status post repair 5.? Valvular heart disease - history of aortic valve replacement with bioprosthetic material 6.? Hypertension - Blood pressure controlled, home medications continued with dose adjustment as needed ? 11/13/2021 patient blood pressure not well controlled adjusted antihypertensives 7.? Dyslipidemia -Patient is on statin therapy, continued at home dose 8.? GERD ? On PPI Charges/Coding Visit Charges Inpatient E&M: 61037 Subs Hosp L2
[2021-11-13] MEDS: Thiamine Hydrochloride 100 MG Tablet PO (08:06)
[2021-11-13] MEDS: Glucerna Shake 120 ML LIQUID PO ×3 (08:06→17:13)
[2021-11-13] MEDS: Folic Acid 1 MG Tablet PO (08:06)
[2021-11-13] MEDS: Atorvastatin Calcium 10 MG Tablet PO (10:06)
[2021-11-13] MEDS: Pantoprazole Sodium 40 MG Tablet PO (10:06)
--- NOTE | 2021-11-13 10:08 | ADDICTION ---
This worker met with the pt to do the addiction assessment packet and discuss d/c planning. Pt agreed to residential treatment. Pt has been approved for [facility] in [facility]. They will pick him up tomorrow, 11/14, at 11am and provide transportation to the facility.
[2021-11-13] MEDS: amLODIPine 5 MG Tablet PO (10:10)
[2021-11-13] MEDS: Potassium Chloride Oral Tablet 20 MEQ PO (10:10)
[2021-11-13] MEDS: hydroCHLOROthiazide 12.5mg 12.5 MG PO (10:10)
[2021-11-13] MEDS: Insulin Glargine-YFGN 100 UNIT/ML Pen SC (10:11)
[2021-11-13] MEDS: Ramipril 10 MG Capsule PO ×2 (11:33→22:15)
[2021-11-13] MEDS: Insulin Lispro 100 UNIT/ML INSULN.PEN SC ×3 (11:37→22:15)
[2021-11-13 13:00] LABS: Bedside Glucose 265 mg/dL (74-106)
[2021-11-13] MEDS: hydrALAZINE 25 MG Tablet PO ×2 (14:17→22:15)
[2021-11-13 18:16] LABS: Bedside Glucose 273 mg/dL (74-106)
[2021-11-13 22:41] LABS: Bedside Glucose 231 mg/dL (74-106)
[2021-11-14 02:47] VITALS: BP 100/70; PULSE 59; RESP 16; TEMP 36.5; O2SAT 100
[2021-11-14] MEDS: Phenobarbital 32.4 MG Tablet 64.8 MG PO ×2 (02:48→08:35)
[2021-11-14 06:20] VITALS: PULSE 72
[2021-11-14] MEDS: hydrALAZINE 25 MG Tablet PO (06:20)
[2021-11-14 06:40] LABS: Bedside Glucose 100 mg/dL (74-106)
[2021-11-14 07:31] VITALS: O2SAT 98
--- NOTE | 2021-11-14 07:32 | PN.HOSP_ITS ---
Subjective Subjective Patient to be assessed for possible discharge to a long-term rehab facility Objective Data Objective Data Vital Signs: Vital Signs Temp Pulse Resp BP Pulse Ox O2 Del Method 97.7 F L 72 16 100/70 100 Room Air 11/14/21 02:47 11/14/21 06:20 11/14/21 02:47 11/14/21 02:47 11/14/21 02:47 11/14/21 02:47 Oxygen Delivery Method Room Air Weight: 68.8 kg Body Mass Index (BMI) 21.1 Intake & Output: Intake and Output for Last 24 Hours 11/12/21 11/13/21 11/14/21 23:59 23:59 23:59 Intake Total 5002.5 / 5002.5 Balance 5002.5 / 5002.5 Medical Nutrition Assessment Dietitian: Malnutrition Criteria Met Start: 11/12/21 10:54 Freq: Status: Active Protocol: Document 11/12/21 10:54 RMA (Rec: 11/12/21 10:54 RMA [id number]) Nutrition Malnutrition Evidence of Malnutrition Exists Yes Malnutrition (moderate): Social/Behavioral/ Environmental Evidenced By Suboptimal Energy Intake ( Moderate),Weight Loss ( Moderate) Clinical Problem Chronic Disease or Condition Related Malnutrition Etiology Moderate pro-rodriguez malnutrition in the context of social circumstance related to ETOH abuse and inadequate oral intake Signs/Symptoms as evidenced by PO meeting less than 75% estimated nutrition needs and ~8% wt loss x past 2-3 months Status Active Problem Recommendation Dietitian Recommendations/Changes Will adjust diet to 2000 calorie/consistent carbohydrate. Will change 240ml glucerna shake TID with meals to 120 ml TID w/ medpass instead. Diet education as pt willing prior to d/c. Lab / Micro Data Result Diagrams: 11/11/21 13:45 11/11/21 13:45 Labs: Laboratory Results - last 24 hr 11/13/21 11:37: POC Glucose 265 H 11/13/21 17:13: POC Glucose 273 H 11/13/21 22:14: POC Glucose 231 H 11/14/21 06:19: POC Glucose 100 Physical Exam Narrative GENERAL: Appears tremulous HEENT: Atraumatic; normocephalic EYES; Anicteric, Normal Conjunctiva NECK; supple, normal thyroid, RESPIRATORY: Diminished to auscultation CARDIOVASCULAR:? Regular S1 S2, GI:? soft, normoactive bowel sounds, : No Renal angle tenderness; EXTREMITIES:? No edema, no clubbing, MUSCULOSKELETAL:? no muscle wasting NEURO:? Awake;? no lateralizing signs. SKIN:? No Rash PSYCH; Flat? affect Assessment & Plan Assessment/Plan (1) Alcohol withdrawal: PLAN: Plan Patient is a 61-year-old gentleman with multiple comorbidities admitted with acute alcohol withdrawal 1.? Acute alcohol withdrawal ? Admitted to regular nursing floor managed with phenobarb taper.? Patient progressed being monitored with CIWA protocol ? 11/13/2021 less tremulous compared to previous day -11/14/2021atient to be assessed for possible discharge to a long-term rehab facility 2.? Diabetes mellitus type II -Continue patient on his home regimen in addition to Accu-Cheks before meals and at bedtime with sliding scale coverage 3.? Sick sinus syndrome ? Status post pacemaker placement 4.? History of ascending aortic dissection ? Status post repair 5.? Valvular heart disease - history of aortic valve replacement with bioprosthetic material 6.? Hypertension - Blood pressure controlled, home medications continued with dose adjustment as needed ? 11/13/2021 patient blood pressure not well controlled adjusted antihyperte nsives 7.? Dyslipidemia -Patient is on statin therapy, continued at home dose 8.? GERD ? On PPI 9. Moderate pro-rodriguez malnutrition in the context of social circumstance related to ETOH abuse and inadequate oral intake as evidenced by PO meeting less than 75% estimated nutrition needs and ~8% wt loss x past 2-3 months Will adjust diet to 2000 calorie/consistent carbohydrate. Will change 240ml glucerna shake TID with meals to 120 ml TID w/ medpass instead. Diet education as pt willing prior to d/c. Charges/Coding Visit Charges Inpatient E&M: 84609 Subs Hosp L2
[2021-11-14 08:30] VITALS: BP 121/72; PULSE 131; RESP 16; TEMP 36.9; O2SAT 100
[2021-11-14] MEDS: Glucerna Shake 120 ML LIQUID PO (08:35)
[2021-11-14] MEDS: amLODIPine 5 MG Tablet PO (08:37)
[2021-11-14] MEDS: Pantoprazole Sodium 40 MG Tablet PO (08:37)
[2021-11-14] MEDS: Ramipril 10 MG Capsule PO (08:38)
[2021-11-14] MEDS: Insulin Glargine-YFGN 100 UNIT/ML Pen SC (08:38)
[2021-11-14] MEDS: Potassium Chloride Oral Tablet 20 MEQ PO (08:38)
[2021-11-14] MEDS: Thiamine Hydrochloride 100 MG Tablet PO (08:38)
[2021-11-14] MEDS: Folic Acid 1 MG Tablet PO (08:38)
[2021-11-14] MEDS: hydroCHLOROthiazide 12.5mg 12.5 MG PO (08:38)
[2021-11-14] MEDS: Atorvastatin Calcium 10 MG Tablet PO (08:38)
[2021-11-14] MEDS: Acetaminophen 325 MG Tablet 650 MG PO (08:42)
--- NOTE | 2021-11-14 08:57 | PCM.DC.SUM ---
Providers Date of Admission: 11/11/21 Date of Discharge: 11/14/21 Primary Care Physician: Dk Pathak, SIGNING TEACHER-[employer] Reason For Visit: ETOH WITHDRAWAL Diagnosis Discharge Diagnosis (1) Alcohol withdrawal: Status: Acute Code(s): F10.939 - Alcohol use, unspecified with withdrawal, unspecified Plan Patient is a 61-year-old gentleman with multiple comorbidities admitted with acute alcohol withdrawal 1.? Acute alcohol withdrawal ? Admitted to regular nursing floor managed with phenobarb taper.? Patient progressed being monitored with CIWA protocol ? 11/13/2021 less tremulous compared to previous day -11/14/2021atient to be assessed for possible discharge to a long-term rehab facility 2.? Diabetes mellitus type II -Continue patient on his home regimen in addition to Accu-Cheks before meals and at bedtime with sliding scale coverage 3.? Sick sinus syndrome ? Status post pacemaker placement 4.? History of ascending aortic dissection ? Status post repair 5.? Valvular heart disease - history of aortic valve replacement with bioprosthetic material 6.? Hypertension - Blood pressure controlled, home medications continued with dose adjustment as needed ? 11/13/2021 patient blood pressure not well controlled adjusted antihypertensives 7.? Dyslipidemia -Patient is on statin therapy, continued at home dose 8.? GERD ? On PPI 9. Moderate pro-rodriguez malnutrition in the context of social circumstance related to ETOH abuse and inadequate oral intake as evidenced by PO meeting less than 75% estimated nutrition needs and ~8% wt loss x past 2-3 months Will adjust diet to 2000 calorie/consistent carbohydrate. Will change 240ml glucerna shake TID with meals to 120 ml TID w/ medpass instead. Diet education as pt willing prior to d/c. Medications at Discharge Home Medications omeprazole 40 mg capsule,delayed release 40 mg PO DAILY reflux 06/10/18 metformin 500 mg tablet 500 mg PO BID diabetes 01/21/19 amlodipine 5 mg tablet 5 mg PO DAILY HEART 10/17/20 atorvastatin 10 mg tablet 10 mg PO DAILY CHOLESTEROL 10/17/20 hydralazine 25 mg tablet 25 mg PO TID BP 10/17/20 hydrochlorothiazide 12.5 mg tablet 12.5 mg PO DAILY BP 10/17/20 ramipril 10 mg capsule 10 mg PO BID BP 10/17/20 dapagliflozin 10 mg tablet (Farxiga) 10 mg PO DAILY DIABETES 09/30/21 insulin detemir U-100 100 unit/mL (3 mL) subcutaneous pen 5 unit subcut DAILY DM 09/30/21 gabapentin 300 mg capsule 300 mg PO Q8H PRN PRN neruropathic pain #30 caps 11/08/21 multivitamin 1 tab PO DAILY supplement 11/11/21 phenobarbital 32.4 mg tablet 32.4 mg PO TID seizures 11/11/21 potassium chloride 10 mEq tablet,extended release(part/cryst) 20 meq PO DAILY supplement 11/11/21 Hospital Course Summary of Care Provided Minutes Spent on Discharge: 35 Physical Exam Narrative GENERAL: Cooperative HEENT: Atraumatic; normocephalic EYES; Anicteric, Normal Conjunctiva NECK; supple, normal thyroid, RESPIRATORY: Diminished to auscultation CARDIOVASCULAR:? Regular S1 S2, GI:? soft, normoactive bowel sounds, : No Renal angle tenderness; EXTREMITIES:? No edema, no clubbing, MUSCULOSKELETAL:? no muscle wasting NEURO:? Awake;? no lateralizing signs. SKIN:? No Rash PSYCH; Flat? affect Medical Records Data Medical Nutrition Assessment Dietitian: Malnutrition Criteria Met Start: 11/12/21 10:54 Freq: Status: Active Protocol: Document 11/12/21 10:54 RMA (Rec: 11/12/21 10:54 RMA [id number]) Nutrition Malnutrition Evidence of Malnutrition Exists Yes Malnutrition (moderate): Social/Behavioral/ Environmental Evidenced By Suboptimal Energy Intake ( Moderate),Weight Loss ( Moderate) Clinical Problem Chronic Disease or Condition Related Malnutrition Etiology Moderate pro-rodriguez malnutrition in the context of social circumstance related to ETOH abuse and inadequate oral intake Signs/Symptoms as evidenced by PO meeting less than 75% estimated nutrition needs and ~8% wt loss x past 2-3 months Status Active Problem Recommendation Dietitian Recommendations/Changes Will adjust diet to 2000 calorie/consistent carbohydrate. Will change 240ml glucerna shake TID with meals to 120 ml TID w/ medpass instead. Diet education as pt willing prior to d/c. Weight / BMI Weight Weight: 68.8 kg Body Mass Index (BMI) 21.1 ABG / Lab / Microbiology Data Result Diagrams: 11/11/21 13:45 11/11/21 13:45 Laboratory: Laboratory Results - last 24 hr 11/13/21 11:37: POC Glucose 265 H 11/13/21 17:13: POC Glucose 273 H 11/13/21 22:14: POC Glucose 231 H 11/14/21 06:19: POC Glucose 100 D/C Instructions Discharge Diet: No restrictions Discharge Activity: Return to Normal Activity Call your doctor if you observe: Fever of 101 or Higher, Shortness of breath, Fainting spells and Chest pain Meaningful Use Info Meaningful Use Diagnoses (Choose all that apply): None applicable Discharge Plan Admission Admit Date/Time: 11/11/21 15:52 Attending Provider: Conrado Morel Primary Care Provider: Dk Pathak NP Consulting Providers: Iman Aguayo Discharge Orders/Prescriptions Prescriptions: Continued omeprazole 40 mg capsule,delayed release(DR/EC) 40 mg PO DAILY hydrochlorothiazide 12.5 mg tablet 12.5 mg PO DAILY atorvastatin 10 mg tablet 10 mg PO DAILY amlodipine 5 mg tablet 5 mg PO DAILY ramipril 10 mg capsule 10 mg PO BID hydralazine 25 mg tablet 25 mg PO TID metformin 500 MG tablet 500 mg PO BID insulin detemir U-100 100 unit/mL (3 mL) Insulin Pen 5 unit SUBCUT DAILY Farxiga 10 mg Tablet 10 mg PO DAILY Hold Instructions: until you speak with your diabetic clinic or PCP. gabapentin 300 mg Capsule 300 mg PO Q8H PRN PRN (Reason: neruropathic pain) Qty: 30 0RF Rx Instructions: for neuropathy from diabetes multivitamin Tablet 1 tab PO DAILY Rx Instructions: over the counter phenobarbital 32.4 mg tablet 32.4 mg PO TID potassium chloride 10 mEq tablet,ER particles/crystals 20 meq PO DAILY Referrals / Follow Up: Dk Pathak SIGNING TEACHER, [employer]ING [employer]ER[employer] [Primary Care Provider] - Disposition Disposition (needs filled in before D/C Order can be placed): Home, Self Care Charges/Coding Visit Charges Inpatient E&M: 40399 Disch Hosp
--- NOTE | 2021-11-14 09:42 | PHA.DC.MR ---
Pharmacy Service has performed discharge medication reconciliation for this patient. The patient's discharge medication list was reviewed for discrepancies and discrepancies were resolved. Home Medications omeprazole 40 mg capsule,delayed release 40 mg PO DAILY reflux 06/10/18 metformin 500 mg tablet 500 mg PO BID diabetes 01/21/19 amlodipine 5 mg tablet 5 mg PO DAILY HEART 10/17/20 atorvastatin 10 mg tablet 10 mg PO DAILY CHOLESTEROL 10/17/20 hydralazine 25 mg tablet 25 mg PO TID BP 10/17/20 hydrochlorothiazide 12.5 mg tablet 12.5 mg PO DAILY BP 10/17/20 ramipril 10 mg capsule 10 mg PO BID BP 10/17/20 dapagliflozin 10 mg tablet (Farxiga) 10 mg PO DAILY DIABETES 09/30/21 insulin detemir U-100 100 unit/mL (3 mL) subcutaneous pen 5 unit subcut DAILY DM 09/30/21 gabapentin 300 mg capsule 300 mg PO Q8H PRN PRN neruropathic pain #30 caps 11/08/21 multivitamin 1 tab PO DAILY supplement 11/11/21 phenobarbital 32.4 mg tablet 32.4 mg PO TID seizures 11/11/21 potassium chloride 10 mEq tablet,extended release(part/cryst) 20 meq PO DAILY supplement 11/11/21
[2021-11-14 09:51] VITALS: PULSE 89
[2021-11-14] MEDS: Insulin Lispro 100 UNIT/ML INSULN.PEN SC (10:39)
[2021-11-14 11:41] LABS: Bedside Glucose 270 mg/dL (74-106)
== END 2021-11-14 10:54 | disposition home or self-care (01) | DRG 897 ==
LOC: ED 15:28 → MS3 16:35
PROVIDERS: Admitting Provider Family Medicine; Emergency Provider Emergency Medicine; PCP Nurse Practitioner Family; Visit Provider Internal Medicine
DX: F10.239 Alcohol dependence with withdrawal, unspecified (principal); E44.0 Moderate protein-calorie malnutrition; E11.9 Type 2 diabetes mellitus without complications; D53.9 Nutritional anemia, unspecified; F17.210 Nicotine dependence, cigarettes, uncomplicated; E78.5 Hyperlipidemia, unspecified; Z79.4 Long term (current) use of insulin; I10 Essential (primary) hypertension; K21.9 Gastro-esophageal reflux disease without esophagitis; Z79.84 Long term (current) use of oral hypoglycemic drugs; Z95.0 Presence of cardiac pacemaker; Z95.2 Presence of prosthetic heart valve; Y90.5 Blood alcohol level of 100-119 mg/100 ml; Z68.21 Body mass index [BMI] 21.0-21.9, adult
CPT/HCPCS: 80048; 80076; 80307; 82077; 82962; 83735; 84100; 85025; 97802; 99285; 99406; J7030; A4216

== ENCOUNTER 2022-02-01 19:00 | Inpatient (IN) | payer OTHER, SELFPAY ==
[2022-02-01 19:02] VITALS: BP 115/87; PULSE 122; RESP 18; TEMP 36.4; O2SAT 100; BMI 21.5
--- NOTE | 2022-02-01 19:11 | ED.VIS.CHEST ---
HPI History of Present Illness Chief Complaint: Nausea/Vomiting Informant: patient Onset/Context/Timing Onset: Today Current Severity: Mild Maximum Severity: Mild Narrative Narrative: 41-year-old male history of alcohol abuse drinks daily. Sertraline was stopped and he is unable to do it himself at home. Said last night started having nausea vomiting. After throwing up multiple times had some chest discomfort. Denies any hematemesis. No melena. No fever. Describes a chest discomfort as a burning. He is a diabetic he has had open heart surgery x3 with mechanical and then a bovine valve. He also has a left-sided pacemaker. He has a history of pancreatitis. Denies any shortness of breath. Prior Similar Symptoms: Yes Recent Illness/Hospitalization: No CVD Risk Factors: Positive for Hypertension, Diabetes and Smoking; Negative for Hypercholesterolemia PE Risk Factors: Negative for Recent Travel/Surgery, Recent Immobilization, Prior DVT or PE, Cancer or OCP + Smoking + >/=35 TAD Risk Factors: Negative for Marfan's Syndrome PFSH PFSH Medical History Adrenal nodule Alcohol dependence Alcoholism Alcoholism Aortic aneurysm Ascending aortic dissection (~2005) Cardiac pacemaker in situ (~06/2016) Diabetes mellitus, type II Essential hypertension Hiatal hernia History of diabetes mellitus HTN (hypertension) Hx of hypercholesterolemia Left carotid bruit Non-sustained ventricular tachycardia Pacemaker Pleuritic chest pain Pure hypercholesterolemia Right bundle branch block (RBBB) Shortness of breath Sick sinus syndrome Smoker Stroke Substance abuse SVT (supraventricular tachycardia) Thoracic aortic aneurysm Tobacco use Home Medications omeprazole 40 mg capsule,delayed release 40 mg PO DAILY reflux 06/10/18 [History Last Taken 11/11/21] metformin 500 mg tablet 500 mg PO BID diabetes 01/21/19 [History Last Taken 11/11/21] amlodipine 5 mg tablet 5 mg PO DAILY HEART 10/17/20 [History Last Taken 11/11/21] atorvastatin 10 mg tablet 10 mg PO DAILY CHOLESTEROL 10/17/20 [History Last Taken 11/11/21] hydralazine 25 mg tablet 25 mg PO TID BP 10/17/20 [History Last Taken 11/11/21] hydrochlorothiazide 12.5 mg tablet 12.5 mg PO DAILY BP 10/17/20 [History Last Taken 11/11/21] ramipril 10 mg capsule 10 mg PO BID BP 10/17/20 [History Last Taken 11/11/21] dapagliflozin 10 mg tablet (Farxiga) 10 mg PO DAILY DIABETES 09/30/21 [History Last Taken 11/11/21] insulin detemir U-100 100 unit/mL (3 mL) subcutaneous pen 5 unit subcut DAILY DM 09/30/21 [History Last Taken 11/11/21] gabapentin 300 mg capsule 300 mg PO Q8H PRN PRN neruropathic pain #30 caps 11/08/21 [Rx Last Taken 11/11/21] multivitamin 1 tab PO DAILY supplement 11/11/21 [History Last Taken 11/10/21] phenobarbital 32.4 mg tablet 32.4 mg PO TID seizures 11/11/21 [History Last Taken Unknown] potassium chloride 10 mEq tablet,extended release(part/cryst) 20 meq PO DAILY supplement 11/11/21 [History Last Taken Unknown] Allergy/AdvReac Type Severity Reaction Status Date / Time No Known Allergies Allergy Verified 02/01/22 19:01 Family History Father CAD (coronary artery disease) Mother Dementia Surgical History H/O aortic valve replacement H/O cardiac catheterization History of aortic aneurysm repair (~2017) History of aortic valve replacement with bioprosthetic valve (~2016) History of cataract surgery History of hernia repair Social History Smoking Status: Current every day smoker tobacco type: cigarettes alcohol intake: current substance use type: former substance user caffeine: Yes Type: coffee Number of servings: 3 ROS ROS ED ROS Narrative Nausea and vomiting. Chest discomfort after the nausea and vomiting. Review of Systems ROS Unobtainable: Denies due to encephalopathy Constitutional Constitutional ED: Denies chills or fever(s) Eyes Eyes: Denies none ENT ENT ED: Denies ear pain Cardiovascular Cardiovascular: Reports as per HPI and chest pain; Denies palpitations or racing heartbeat Respiratory/Chest Respiratory/Chest: Denies cough or dyspnea Gastrointestinal Gastrointestinal: Reports nausea and vomiting; Denies abdominal pain, constipation, diarrhea or melena Genitourinary Genitourinary ED: Denies dysuria or hematuria Musculoskeletal Musculoskeletal: Denies arthralgias Integumentary Denies abscess Neurologic Neurologic: Denies headache(s) Psychiatric Psychiatric: Denies anxiety Endocrine Endocrinology: Denies cold intolerance Hematologic/Lymphatic Hematologic/Lymphatic: Denies easy bleeding Allergic/Immunologic Allergic/Immunologic ED: Denies mouth swelling or tongue swelling EXAM Physical Exam Narrative Exam Narrative: Well-appearing 61-year-old male. Vital signs stable afebrile. Pulse ox under percent on room air no signs hypoxia. He does not look septic or toxic or in any distress. H EENT exam unremarkable. Moist mucous members. Neck nontender no JVD. Lungs clear to auscultation bilaterally. Heart tachycardic rate about 120. 3/6 stock ejection murmur. Abdomen soft nontender normal bowel sounds no peritoneal signs. Moving all 4 extremities. Calves are nontender without edema or cords. Neurologically is awake and alert with no focal motor deficit. Const Vital Signs: 02/01/22 19:02 02/01/22 19:07 02/01/22 19:21 Temperature 97.6 F L Temperature Source Temporal Pulse Rate 122 H Respiratory Rate 18 Respiratory Effort Normal Non-Labored Blood Pressure 115/87 H Blood Pressure Mean 96 Pulse Ox 100 Oxygen Delivery Method Room Air Room Air Positive well nourished and well developed; Negative for obese, cachectic, contractures or unkempt General Appearance ED: well developed and NAD; Negative for unkempt, cachectic, contractures or pallor Nutritional Appearance: Negative for cachectic or obese HEENT Reports moist mucous membranes normocephalic and atraumatic; Negative for trauma or tenderness Eyes PERRL and EOMs intact bilaterally General Eye ED: Negative for pale conjunctiva or scleral icterus Neck no lymphadenopathy, supple and no JVD General: Negative for tenderness Chest Wall inspection of chest normal and palpation of chest normal Chest: Negative for tenderness Resp normal respiratory effort and clear to auscultation bilaterally Effort and Inspection: Negative for respiratory distress Auscultation: Negative for rales, rhonchi or wheezes Cardio regular rhythm, S1 normal heart sound and S2 normal heart sound; Negative for regular rate or no murmurs Rate: tachycardic Peripheral Pulses: pulses 2+ throughout GI normal to inspection, nondistended, normoactive bowel sounds, soft to palpation, non-tender, non-distended and no masses Auscultation: Negative for hyperactive bowel sounds Palpation: Negative for splenomegaly Back/Spine no CVA tenderness and no thoracic nor lumbar tenderness General Back: Negative for CVA tenderness Cervical Spine: Negative for cervical spine tenderness Extremity normal to inspection General Extremety ED: Negative for edema, pulses abnormal or tenderness General Extremity: Negative for edema or pulses abnormal Neuro oriented x3 and CN's II-XII intact bilaterally Sensorium / Orientation: awake, alert, oriented to person, oriented to place and oriented to time; Negative for confused, lethargic or stuporous Motor Exam: strength 5/5 throughout Psych mental status grossly normal Appearance: Negative for unkempt Attitude: No agitated Mood & Affect: Negative for depressed, anxious or tearful Skin no rashes or lesions noted and no wounds General Skin Exam: Negative for jaundice or pallor Rashes: No rashes noted Trauma: Negative for abrasion or laceration Heart Score History: Slightly/Non-Suspicious ECG: Normal Age: >45 - <65 years Risk Factors: 1 or 2 Risk Factors Troponin: </= Normal Limit Score: 2 MDM MDM MDM Narrative Medical decision making narrative: 61-year-old male with nausea vomiting after trying to quit drinking. He has have a history of alcohol abuse. Went through a 30-day program a month ago and started drinking after that. Exam benign. He is tachycardic. To be treated with IV fluids and Zofran. Screening labs will be obtained. Clinically I do not think this is cardiac. I do not think it is a dissection. I do not think it is a esophageal rupture. Repeat exam the patient is doing well at 8:30 PM. Patient and family requesting inpatient detox. They do not feel he can do this at home. I will speak to the hospitalist. Lab Data Attestation: I reviewed the patient's lab results. Lab results narrative: CBC shows a white count of 5.2. H&H of 14 and 42. Chest x-ray portable unremarkable. Chemistries show potassium 3.1 gap of 8 BUN and creatinine is 6 and 1.3. Glucose 256. Troponin 22. Lipase of 21. Labs: Laboratory Results - last 24 hr 02/01/22 02/01/22 02/01/22 19:24 19:24 19:30 WBC 5.2 RBC 3.96 L Hgb 14.2 Hct 42.1 MCV 106.3 H MCH 35.9 H MCHC 33.7 RDW Std Deviation 52.8 H RDW Coeff of [place] 13.3 Plt Count 206 MPV 11.6 Immature Gran % (Auto) 0.400 Neut % (Auto) 55.5 Lymph % (Auto) 33.6 [place] % (Auto) 8.5 Eos % (Auto) 0.4 Baso % (Auto) 1.6 H Absolute Neuts (auto) 2.9 Absolute Lymphs (auto) 1.73 Nucleated RBC % 0 Sodium Cancelled 144 Potassium Cancelled 3.1 L Chloride Cancelled 107 Carbon Dioxide Cancelled 29.0 Anion Gap Cancelled 8 BUN Cancelled 6 L Creatinine Cancelled 1.31 H Estim Creat Clear Calc Cancelled 60.20 Est GFR (MDRD) Af Amer Cancelled 72 Est GFR (MDRD) Non-Af Cancelled 59 L BUN/Creatinine Ratio Cancelled 4.6 L Glucose Cancelled 256 H Calcium Cancelled 8.3 L Troponin I High Sens Cancelled 22 Lipase Cancelled 21 L Radiography Chest X-Ray - ED: 1 View, Read by ED Physician, Heart, Lungs, Mediastinum, Bony Structures, No Acute Disease and Chronic Changes Diagnostic Testing: Clinical Impression(s) from Imaging Studies Chest X-Ray 02/01/22 19:33 IMPRESSION: No acute findings in the chest. Electronically Signed: Raul Conklin MD at 20:15 EST , Rhythm Strip Rhythm Strip: Sinus Tach Rate: 115 Ectopy: None EKG Initial EKG: Attestation: I personally reviewed and interpreted this EKG as follows: Interpretation: Sinus Rhythm and No Acute Injury Pattern Comments: Sinus tachycardia rate of 115 no acute signs of GA or ischemia. Right bundle branch block which is old. Discharge Plan Triage Chief Complaint: Nausea/Vomiting Other Complaint: Chest Pain ETOH Intox ED Provider: Vinh Lomeli Dx/Rx/DC Orders Clinical Impression: ETOH abuse, Acute hypokalemia, Nausea & vomiting, Alcohol withdrawal Prescriptions: No Action omeprazole 40 mg capsule,delayed release(DR/EC) 40 mg PO DAILY hydrochlorothiazide 12.5 mg tablet 12.5 mg PO DAILY atorvastatin 10 mg tablet 10 mg PO DAILY amlodipine 5 mg tablet 5 mg PO DAILY ramipril 10 mg capsule 10 mg PO BID hydralazine 25 mg tablet 25 mg PO TID metformin 500 MG tablet 500 mg PO BID insulin detemir U-100 100 unit/mL (3 mL) Insulin Pen 5 unit SUBCUT DAILY Farxiga 10 mg Tablet 10 mg PO DAILY Hold Instructions: until you speak with your diabetic clinic or PCP. gabapentin 300 mg Capsule 300 mg PO Q8H PRN PRN (Reason: neruropathic pain) Qty: 30 0RF Rx Instructions: for neuropathy from diabetes multivitamin Tablet 1 tab PO DAILY Rx Instructions: over the counter phenobarbital 32.4 mg tablet 32.4 mg PO TID potassium chloride 10 mEq tablet,ER particles/crystals 20 meq PO DAILY Primary Care Provider: Dk Pathak NP Referrals: Dk Pathak NP, [employer] [Primary Care Provider] - Disposition Disposition: [facility]
[2022-02-01] MEDS: 0.9% Normal Saline 1,000 ML 1000 ML IV (19:32)
[2022-02-01] MEDS: Ondansetron 4 MG/2 ML Vial IV (19:32)
[2022-02-01 19:33] LABS: Absolute Lymphocyte Count 1.73 X10^3/uL (0.83-4.51); Absolute Neutrophil Count 2.9 X10^3/uL (2.0-7.7); Basophil# 0.08 X10^3/uL; Basophil% 1.6 % (0-1); Eosinophil# 0.02 X10^3/uL; Eosinophils% 0.4 % (0-5); Hematocrit 42.1 % (40-54); Hemoglobin 14.2 g/dL (13.0-16.5); Lymphocyte # 1.73 X10^3/ul (0.83-4.51); Lymphocyte % 33.6 % (19-41); Mean Corp Hgb Conc 33.7 g/dL (32-36); Mean Corpuscular Hgb 35.9 pg (27.0-32.0); Mean Corpuscular Volume 106.3 fL (80-94); Mean Platelet Vol. 11.6 fl (6.2-12.0); Monocyte# 0.44 X10^3/uL; Monocyte% 8.5 % (0-10); NRBC Flagged by Analyzer 0 % (0-5); Neutrophil # 2.86 X10^3/uL (2.7-7.7); Neutrophil % 55.5 % (47-70); Platelet Count 206 K/mm3 (150-450); RBC Distribution Width CV 13.3 % (11.6-14.6); RBC Distribution Width SD 52.8 fl (35.1-43.9); Red Blood Count 3.96 M/mm3 (4.6-6.2); White Blood Count 5.2 K/mm3 (4.4-11.0)
--- NOTE | 2022-02-01 19:33 | RAD_ITS ---
EXAM: XR CHEST, 1 VIEW CLINICAL INDICATION: chest pain TECHNIQUE: Frontal view of the chest. This report was created using [employer] report generation technology. COMPARISON: 09/30/2021 FINDINGS: LUNGS AND PLEURAL SPACES: Unremarkable. No consolidation or edema. No pneumothorax. No effusion. HEART: Unremarkable. Cardiac silhouette not enlarged. MEDIASTINUM: Central airways and mediastinal contour are unremarkable. BONES/JOINTS: Unremarkable. SOFT TISSUES: Unremarkable. TUBES, LINES AND DEVICES: Left-sided pacemaker in stable position. RAD/Chest 1 View (Portable) IMPRESSION: No acute findings in the chest. Electronically Signed: Raul Conklin MD at 20:15 EST ,
[2022-02-01 20:23] LABS: Anion Gap 8 (5-15); BUN 6 mg/dL (7-18); BUN/Creat Ratio 4.6 RATIO (10-20); Calcium,Total 8.3 mg/dL (8.5-10.1); Chloride 107 mmol/L (98-107); Creatinine, Serum 1.31 mg/dL (0.70-1.30); EST Glomerular Filtration Rate 59 mL/min (>60); Est Glom Filt Rate - Afr Amer 72 mL/min (>60); Glucose 256 mg/dL (74-106); Lipase 21 U/L (73-393); Potassium 3.1 mmol/L (3.5-5.1); Sodium Level 144 mmol/L (136-145); Troponin-I HS (w/2H Reflex) 22 pg/mL (3.0-78.0)
[2022-02-01] MEDS: LORazepam 1 MG Tablet PO (20:30)
--- NOTE | 2022-02-01 20:41 | HP.PCM.HOS_ITS ---
HPI - General General Date of Admission: 02/01/22 Date of Service: 02/01/22 Chief Complaint: Nausea, emesis, EtOH withdrawal. HPI Narrative The patient is a 61 y/o M w/ PMHx: Chronic macrocytic anemia, Diabetes mellitus type II, Hx sick sinus syndrome s/p pacemaker placement, Hx Assending aortic dissection s/p repair, Valvular heart disease s/p AVR with bioprosthetic valve, HTN, HLD, GERD, EtOH abuse (3-4 Tall Boys daily normally prior, recently over last 48 hours attempted to wean to 1-2 max daily), recently admitted 11/11/21 and prior to this 11/05/21 for EtOH detoxification who now re-presents to the [facility] ED on 02/01/22 with history of following recent discharge transition to a 30-day program and unfortunately this was completed began to immediately drinking again with history of recent discontinuation of the sertraline per himself and unfortunately tempted to stop drinking at the same time with notable nausea and emesis, fatigue and malaise aas well as tremors over the last 24 hours with chest burning sensation after his bouts of emesis prompting eventual ED evaluation. Work-up in the ED included T97.6, heart rate 122, BP 150/87, respiratory rate 18, 100% on room air, CBC with WBC 5.2, hemoglobin 14.2, platelet 206 without marked shift, BMP with K 3.1, BUN/Cr 6/1.31, glucose 256, troponin 22 with repeat delta troponin pending upon requested evaluation of patient, lipase 21, chest x-ray with no acute cardiopulmonary findings, EKG with ST with RBBB without acute evidence of ischemia. In the ED patient administered 1 L normal saline bolus as well as Zofran 4 mg IV x1 in addition to ativan 1 mg po x 1. [facility] Medical History Adrenal nodule Alcohol dependence Alcoholism Alcoholism Aortic aneurysm Ascending aortic dissection (~2005) Cardiac pacemaker in situ (~06/2016) Diabetes mellitus, type II Essential hypertension Hiatal hernia History of diabetes mellitus HTN (hypertension) Hx of hypercholesterolemia Left carotid bruit Non-sustained ventricular tachycardia Pacemaker Pleuritic chest pain Pure hypercholesterolemia Right bundle branch block (RBBB) Shortness of breath Sick sinus syndrome Smoker Stroke Substance abuse SVT (supraventricular tachycardia) Thoracic aortic aneurysm Tobacco use Home Medications omeprazole 40 mg capsule,delayed release 40 mg PO DAILY reflux 06/10/18 [History Last Taken 11/11/21] metformin 500 mg tablet 500 mg PO BID diabetes 01/21/19 [History Last Taken 11/11/21] amlodipine 5 mg tablet 5 mg PO DAILY HEART 10/17/20 [History Last Taken 11/11/21] atorvastatin 10 mg tablet 10 mg PO DAILY CHOLESTEROL 10/17/20 [History Last Taken 11/11/21] hydralazine 25 mg tablet 25 mg PO TID BP 10/17/20 [History Last Taken 11/11/21] hydrochlorothiazide 12.5 mg tablet 12.5 mg PO DAILY BP 10/17/20 [History Last Taken 11/11/21] ramipril 10 mg capsule 10 mg PO BID BP 10/17/20 [History Last Taken 11/11/21] dapagliflozin 10 mg tablet (Farxiga) 10 mg PO DAILY DIABETES 09/30/21 [History Last Taken 11/11/21] insulin detemir U-100 100 unit/mL (3 mL) subcutaneous pen 5 unit subcut DAILY DM 09/30/21 [History Last Taken 11/11/21] gabapentin 300 mg capsule 300 mg PO Q8H PRN PRN neruropathic pain #30 caps 11/08/21 [Rx Last Taken 11/11/21] multivitamin 1 tab PO DAILY supplement 11/11/21 [History Last Taken 11/10/21] phenobarbital 32.4 mg tablet 32.4 mg PO TID seizures 11/11/21 [History Last Taken Unknown] potassium chloride 10 mEq tablet,extended release(part/cryst) 20 meq PO DAILY supplement 11/11/21 [History Last Taken Unknown] Allergy/AdvReac Type Severity Reaction Status Date / Time No Known Allergies Allergy Verified 02/01/22 19:01 Family History Father CAD (coronary artery disease) Mother Dementia Surgical History H/O aortic valve replacement H/O cardiac catheterization History of aortic aneurysm repair (~2016) History of aortic valve replacement with bioprosthetic valve (~2017) History of cataract surgery History of hernia repair Social History Smoking Status: Current every day smoker tobacco type: cigarettes alcohol intake: current substance use type: former substance user caffeine: Yes Type: coffee Number of servings: 3 ROS ROS Narrative Admission Review of Systems: CONSTITUTIONAL: No weight loss, fever, chills, + weakness or fatigue. HEENT: Eyes: No visual loss, blurred vision, double vision or yellow sclerae. Ears, Nose, Throat: No hearing loss, sneezing, congestion, runny nose or sore throat. SKIN: No rash or itching, lesions, wounds. CARDIOVASCULAR: + Anterior chest burning sensation after emesis bouts, No palpitations, edema, orthopnea, syncopal events. RESPIRATORY: No shortness of breath, cough or sputum, wheezing, hemoptysis. GASTROINTESTINAL: + anorexia, nausea, vomiting, No diarrhea, abdominal pain, melena, BRBPR. GENITOURINARY: No dysuria, frequency, urgency or retention. NEUROLOGICAL: + Tactile disturbances, mild tremors, No headache, dizziness, syncope, paralysis, ataxia, numbness or tingling in the extremities, focal weakness, change in bowel or bladder control, seizure. MUSCULOSKELETAL: + muscle, back pain, joint pain or stiffness. HEMATOLOGIC: + anemia, bleeding or bruising. LYMPHATICS: No enlarged nodes. No history of splenectomy. PSYCHIATRIC: + history of depression or anxiety. ENDOCRINOLOGIC: + reports of sweating, No cold or heat intolerance. No polyuria or polydipsia. ALLERGIES: No history of asthma, hives, eczema or rhinitis. Vital Signs Vital Signs Vital Signs: 02/01/22 19:02 02/01/22 19:07 02/01/22 19:21 Temperature 97.6 F L Temperature Source Temporal Pulse Rate 122 H Respiratory Rate 18 Respiratory Effort Normal Non-Labored Blood Pressure 115/87 H Blood Pressure Mean 96 Pulse Ox 100 Oxygen Delivery Method Room Air Room Air Weight Weight: 154 lb 8.705 oz Body Mass Index (BMI) 21.5 Physical Exam Narrative Physical Examination: General: Awake, alert, oriented x 3 and cooperative, seated upright in ED bed, fatigued, mild tremors evident. Skin: Normal color, normal turgor, no icterus, no cyanosis except occasional staged ecchymoses. HEENT: AT/NC, EOMI, PERRLA, mildly dry MM, no carotid bruits or JVD noted. Lungs: Mild diminished, greater bases, appropriate rate and effort, no rales, ronchi or wheezing. Heart: Tachycardic with regular rhythm; no gallop, rub audible, + SM. Abdomen: Soft, NTTP, ND, mildly hyperactive BS, mild HM. Extremities: No cyanosis, clubbing, or edema. Neurological: Patient awake, alert, oriented as noted, cognitive function appears baseline intact; pupils equally reactive to light and accommodation, cranial nerves II-XII grossly normal, moving all 4 extremities, no focal deficits, strength mildly to moderately global decrease secondary to acute presentation, mildly tremulous, reports feeling anxious. Psychiatric: Affect appears mildly anxious, mildly tremulous, initially tearful about ongoing EtOH abuse but following discussions calms. Results Lab / Micro Data Result Diagrams: 02/01/22 19:24 02/01/22 19:30 Labs: Laboratory Results - last 24 hr 02/01/22 19:24: WBC 5.2, RBC 3.96 L, Hgb 14.2, Hct 42.1, MCV 106.3 H, MCH 35.9 H , MCHC 33.7, RDW Std Deviation 52.8 H, RDW Coeff of Kalpana 13.3, Plt Count 206, MPV 11.6, Immature Gran % (Auto) 0.400, Neut % (Auto) 55.5, Lymph % (Auto) 33.6, [place] % (Auto) 8.5, Eos % (Auto) 0.4, Baso % (Auto) 1.6 H, Absolute Neuts (auto) 2.9, Absolute Lymphs (auto) 1.73, Nucleated RBC % 0 02/01/22 19:24: Sodium Cancelled, Potassium Cancelled, Chloride Cancelled, Carbon Dioxide Cancelled, Anion Gap Cancelled, BUN Cancelled, Creatinine Cancell ed, Estim Creat Clear Calc Cancelled, Est GFR (MDRD) Af Amer Cancelled, Est GFR (MDRD) Non-Af Cancelled, BUN/Creatinine Ratio Cancelled, Glucose Cancelled, Calcium Cancelled, Troponin I High Sens Cancelled, Lipase Cancelled 02/01/22 19:30: Sodium 144, Potassium 3.1 L, Chloride 107, Carbon Dioxide 29.0, Anion Gap 8, BUN 6 L, Creatinine 1.31 H, Estim Creat Clear Calc 60.20, Est GFR (MDRD) Af Amer 72, Est GFR (MDRD) Non-Af 59 L, BUN/Creatinine Ratio 4.6 L, Glucose 256 H, Calcium 8.3 L, Troponin I High Sens 22, Lipase 21 L Rhythm Strip Rhythm Strip: Sinus Tach Rate: 115 Ectopy: None Radiology Impression Chest X-Ray 02/01/22 19:33 IMPRESSION: No acute findings in the chest. Electronically Signed: Raul Conklin MD at 20:15 EST , Assessment & Plan Assessment/Plan (1) Alcohol withdrawal: PLAN: Plan The patient is a 61 y/o M w/ PMHx: Chronic macrocytic anemia, Diabetes mellitus type II, Hx sick sinus syndrome s/p pacemaker placement, Hx Assending aortic dissection s/p repair, Valvular heart disease s/p AVR with bioprosthetic valve, HTN, HLD, GERD, EtOH abuse (3-4 Tall Boys daily), recently admitted 11/11/21 and prior to this 11/05/21 for EtOH detoxification who now re-presents to the [facility] ED on 02/01/22 with history of following recent discharge transition to a 30-day program and unfortunately this was completed began to immediately drinking again with history of recent discontinuation of the sertraline per himself and unfortunately tempted to stop drinking at the same time with notable nausea and emesis, fatigue and malaise and tremors over the last 24 hours with chest burning sensation after his bouts of emesis prompting eventual ED evaluation. #1. Acute EtOH Withdrawal with associated nausea and emesis and unfortunately related acute GERD symptoms: Will admit to [facility], routine labs obtained in the ED upon presentation and no marked appearing. Given interest ongoing interest in sobriety despite his recent quick setbacks, will initiate and continue on protocol with taper course of Phenobarbital, scheduled gabapentin for seizure prophylaxis, as needed Catapres, Bentyl, Vistaril, IV fluids, IV antiemetics, Tylenol as needed for pain. Will consult Case management for assistance for transition to next level of rehabilitation care. Mag, phos pending. Maintain on CIWA protocol concurrently. #2. Hypokalemia: Admission K+ 3.1, magnesium level requested as noted, supplementation given, repeat level in AM. #3. Mild renal insufficiency likely secondary to recent GI losses secondary to #1: Admission BUN/creatinine 07/09.31, baseline prior noted most recently 0.8 but has been up to 1.2, will continue treatment as noted. Temporarily hold HCTZ given recent GI losses, add back once appropriate. #4. Diabetes mellitus type II: Hold oral home regimen, continue home insulin regimen, once clinically improving with resolved nausea and emesis will transition to ADA diet, accu checks w/ ISS. #5. Chronic macrocytic anemia: Admission hemoglobin 14.2, baseline hemoglobin vacillates between 12-14, continue vitamin B12/thiamine/folic acid supplementation, trend CBC as needed. #6. Hx Sick Sinus Syndrome: s/p pacemaker placement. #7. Valvular heart disease: Patient initially status post mechanical valve replacement eventually transitioned to bioprosthetic AV replacement, 04/02/2020 echocardiogram with EF 70%, severe concentric LVH, trivial MVI, mild TVI, stable appearing bioprosthetic AV apparatus, RVSP 19 mmHg, transmitral Doppler flow suggestive of impaired relaxation LV, ICD/pacer leads identified. #8. History ascending aortic dissection: Status post repair, most recent CT noted 09/08/2019 with expected appearance of repaired normal diameter of the aorta. #9. Hypertension: Will continue home ACEI, norvasc, hydralazine, temporarily holding HCTZ as noted, PRN IV hydralazine. #10. Hyperlipidemia: We will continue statin therapy. #11. Tobacco Abuse: Encouraged cessation, inpatient consultation per RT, NR if desired. #12. GERD: We will continue patient on PPI and given his current symptoms we will also place on as needed Mylanta and Carafate. Would expect improvement once his bouts of nausea and emesis resolve with alcohol withdrawal treatment. #13. DVT prophylaxis: Given current presentation for withdrawal treatment will defer chemoprophylaxis, lower risk admission, encourage ambulation. Charges/Coding Visit Charges Inpatient E&M: 31514 Init Hosp L3
[2022-02-01 21:00] VITALS: BP 117/82; PULSE 128; RESP 13; TEMP 35.7; O2SAT 100
[2022-02-01 21:31] LABS: AST(SGOT) 239 U/L (15-37); Alanine Aminotransfer ALT/SGPT 109 U/L (16-61); Alkaline Phosphatase 164 U/L (45-117); Globulin 3.2 g/dL (2.2-4.2); Phosphorus 2.6 mg/dL (2.5-4.9); Protein, Total 6.2 g/dL (6.4-8.2)
[2022-02-01 21:44] VITALS: BMI 20.2
[2022-02-01 21:54] VITALS: BP 122/89; PULSE 100; RESP 18; TEMP 37; O2SAT 97
[2022-02-01 21:56] LABS: Reflex Troponin-HS? (from REC) Y
[2022-02-01] MEDS: Pantoprazole Sodium 40 MG Tablet PO (22:24)
[2022-02-01] MEDS: Lactated Ringers 1,000 ML 100 ML IV (22:24)
[2022-02-01] MEDS: Sucralfate 1 GM Tablet PO (22:24)
[2022-02-01 22:25] VITALS: BP 122/89; PULSE 100
[2022-02-01] MEDS: Atorvastatin Calcium 10 MG Tablet PO (22:25)
[2022-02-01] MEDS: Phenobarbital 32.4 MG Tablet 64.8 MG PO (22:25)
[2022-02-01] MEDS: Potassium Chloride Oral Tablet 20 MEQ 40 MEQ PO (22:25)
[2022-02-01] MEDS: hydrALAZINE 25 MG Tablet PO (22:25)
[2022-02-01] MEDS: Insulin Lispro 100 UNIT/ML INSULN.PEN SC (23:14)
[2022-02-01] MEDS: Ramipril 10 MG Capsule PO (23:14)
[2022-02-02] VITALS (9 sets, daily range): BP systolic 78–112; BP diastolic 51–77; PULSE 70–95; RESP 18; TEMP 36.7–37.4; O2SAT 96–98
[2022-02-02 00:01] LABS: Bedside Glucose 296 mg/dL (74-106)
[2022-02-02 00:51] LABS: Troponin-I HS 22 pg/mL (3.0-78.0)
[2022-02-02] MEDS: Phenobarbital 32.4 MG Tablet 64.8 MG PO ×6 (02:11→22:40)
[2022-02-02] MEDS: hydrALAZINE 25 MG Tablet PO ×2 (06:34→22:43)
[2022-02-02] MEDS: Sucralfate 1 GM Tablet PO ×4 (06:34→22:43)
[2022-02-02] MEDS: Insulin Lispro 100 UNIT/ML INSULN.PEN SC ×4 (06:34→22:41)
[2022-02-02 06:55] LABS: Bedside Glucose 155 mg/dL (74-106)
[2022-02-02] MEDS: Acetaminophen 325 MG Tablet 650 MG PO ×2 (08:18→14:59)
[2022-02-02] MEDS: Folic Acid 1 MG Tablet PO (08:19)
[2022-02-02] MEDS: Potassium Chloride Oral Tablet 20 MEQ PO (08:19)
[2022-02-02] MEDS: Thiamine Hydrochloride 100 MG Tablet PO (08:20)
[2022-02-02] MEDS: Multivitamins,Ther W-Minerals Tablet 1 TABLET PO (08:20)
--- NOTE | 2022-02-02 08:33 | PCM.PN.HOSP ---
Subjective Subjective Patient is a 61-year-old gentleman with multiple comorbidities admitted with acute alcohol withdrawal admitted to monitored bed where patient is being managed Objective Data Objective Data Vital Signs: Vital Signs Temp Pulse Resp BP Pulse Ox O2 Del Method 98.2 F 89 18 106/70 98 Room Air 02/02/22 06:00 02/02/22 06:34 02/02/22 06:00 02/02/22 06:34 02/02/22 06:00 02/02/22 06:00 Oxygen Delivery Method Room Air Weight: 65.8 kg Body Mass Index (BMI) 20.2 Intake & Output: Intake and Output for Last 24 Hours 01/31/22 02/01/22 02/02/22 23:59 23:59 23:59 Intake Total 1000 / 1400 1460 / 1460 Balance 1000 / 1400 1460 / 1460 Lab / Micro Data Result Diagrams: 02/01/22 19:24 02/01/22 19:30 Labs: Laboratory Results - last 24 hr 02/01/22 19:24: WBC 5.2, RBC 3.96 L, Hgb 14.2, Hct 42.1, MCV 106.3 H, MCH 35.9 H, MCHC 33.7, RDW Std Deviation 52.8 H, RDW Coeff of Kalpana 13.3, Plt Count 206, MPV 11.6, Immature Gran % (Auto) 0.400, Neut % (Auto) 55.5, Lymph % (Auto) 33.6, [place] % (Auto) 8.5, Eos % (Auto) 0.4, Baso % (Auto) 1.6 H, Absolute Neuts (auto) 2.9, Absolute Lymphs (auto) 1.73, Nucleated RBC % 0 02/01/22 19:24: Sodium Cancelled, Potassium Cancelled, Chloride Cancelled, Carbon Dioxide Cancelled, Anion Gap Cancelled, BUN Cancelled, Creatinine Cancelled, Estim Creat Clear Calc Cancelled, Est GFR (MDRD) Af Amer Cancelled, Est GFR (MDRD) Non-Af Cancelled, BUN/Creatinine Ratio Cancelled, Glucose Cancelled, Calcium Cancelled, Troponin I High Sens Cancelled, Lipase Cancelled 02/01/22 19:30: Sodium 144, Potassium 3.1 L, Chloride 107, Carbon Dioxide 29.0, Anion Gap 8, BUN 6 L, Creatinine 1.31 H, Estim Creat Clear Calc 60.20, Est GFR (MDRD) Af Amer 72, Est GFR (MDRD) Non-Af 59 L, BUN/Creatinine Ratio 4.6 L, Glucose 256 H, Calcium 8.3 L, Troponin I High Sens 22, Lipase 21 L 02/01/22 19:30: Phosphorus 2.6, Magnesium 2.0, Total Bilirubin 0.30, Direct Bilirubin 0.20, AST 239 H, ALT 109 H, Alkaline Phosphatase 164 H, Total Protein 6.2 L, Albumin 3.0 L, Globulin 3.2 02/01/22 22:30: Troponin I High Sens 22 02/01/22 23:10: POC Glucose 296 H 02/02/22 06:33: POC Glucose 155 H Radiography Diagnostic Testing: Radiology Impression Chest X-Ray 02/01/22 19:33 IMPRESSION: No acute findings in the chest. Electronically Signed: Raul Conklin MD at 20:15 EST , Rhythm Strip Rhythm Strip: Sinus Tach Rate: 115 Ectopy: None Physical Exam Narrative GENERAL: cooperative HEENT: Atraumatic; normocephalic EYES; Anicteric, Normal Conjunctiva NECK; supple, normal thyroid, RESPIRATORY: Diminished to auscultation CARDIOVASCULAR: Regular S1 S2, GI: soft, normoactive bowel sounds, : No Renal angle tenderness; EXTREMITIES: No edema, no clubbing, MUSCULOSKELETAL: no muscle wasting NEURO: Awake; no lateralizing signs. SKIN: No Rash PSYCH; Flat affect Assessment & Plan Assessment/Plan (1) Alcohol withdrawal: PLAN: Plan Patient is a 61-year-old gentleman with multiple comorbidities admitted with acute alcohol withdrawal 1.? Acute alcohol withdrawal ? Admitted to regular nursing floor managed with phenobarb taper.? Patient progressed being monitored with CIWA protocol 2. Hypokalemia -corrected per protocol repeat labs ordered for monitoring 3.? Diabetes mellitus type II -Continue patient on his home regimen in addition to Accu-Cheks before meals and at bedtime with sliding scale coverage 4.? Sick sinus syndrome ? Status post pacemaker placement 5.? History of ascending aortic dissection ? Status post repair 6.? Valvular heart disease - history of aortic valve replacement with bioprosthetic material 7.? Hypertension - Blood pressure controlled, home medications continued with dose adjustment as needed 8.? Dyslipidemia -Patient is on statin therapy, continued at home dose 9.? GERD ? On PPI 10. Tobacco dependence - Counseled on cessation, offered nicotine patch for tobacco cravings Charges/Coding Visit Charges Inpatient E&M: 31035 Subs Hosp L2
[2022-02-02] MEDS: Pantoprazole Sodium 40 MG Tablet PO ×2 (10:33→22:44)
[2022-02-02] MEDS: amLODIPine 5 MG Tablet PO (10:33)
[2022-02-02] MEDS: Ramipril 10 MG Capsule PO ×2 (10:33→22:43)
[2022-02-02] MEDS: Insulin Glargine-YFGN 100 UNIT/ML Pen SC (10:33)
--- NOTE | 2022-02-02 11:18 | ADDICTION ---
This service writer met with PT to conduct ASAM, MSE, AUDIT, DUDIT assessments and to plan for d/c. PT A+Ox4 and participated actively. All assessments completed, faxed to [facility] and placed in PT's chart. PT plans to f/u with individual counselor at [facility] for outpatient treatment services. PT did not indicate a need for transportation post d/c from [facility].
[2022-02-02 12:11] LABS: Bedside Glucose 314 mg/dL (74-106)
[2022-02-02] MEDS: Gabapentin 300 MG Capsule PO (12:18)
[2022-02-02] MEDS: Glucerna Shake 120 ML LIQUID PO (14:13)
[2022-02-02 17:25] LABS: Bedside Glucose 205 mg/dL (74-106)
[2022-02-02] MEDS: hydrOXYzine PAM 25 MG Capsule 50 MG PO (20:35)
[2022-02-02] MEDS: 0.9% Saline Lock 10 ML Syringe IV (22:38)
[2022-02-02] MEDS: Atorvastatin Calcium 10 MG Tablet PO (22:44)
[2022-02-02 23:11] LABS: Bedside Glucose 248 mg/dL (74-106)
[2022-02-03] VITALS (9 sets, daily range): BP systolic 94–125; BP diastolic 64–92; PULSE 63–105; RESP 16–18; TEMP 36.5–36.7; O2SAT 94–100
[2022-02-03] MEDS: Phenobarbital 32.4 MG Tablet 64.8 MG PO ×6 (02:57→21:54)
[2022-02-03] MEDS: Sucralfate 1 GM Tablet PO ×4 (06:45→21:55)
[2022-02-03] MEDS: hydrALAZINE 25 MG Tablet PO (07:01)
[2022-02-03 07:05] LABS: Bedside Glucose 132 mg/dL (74-106)
[2022-02-03] MEDS: Glucerna Shake 120 ML LIQUID PO ×4 (08:46→21:54)
[2022-02-03] MEDS: amLODIPine 5 MG Tablet PO (08:47)
[2022-02-03] MEDS: Thiamine Hydrochloride 100 MG Tablet PO (08:47)
[2022-02-03] MEDS: Pantoprazole Sodium 40 MG Tablet PO ×2 (08:47→21:54)
[2022-02-03] MEDS: Folic Acid 1 MG Tablet PO (08:47)
[2022-02-03] MEDS: Ramipril 10 MG Capsule PO ×2 (08:47→21:55)
[2022-02-03] MEDS: Multivitamins,Ther W-Minerals Tablet 1 TABLET PO (08:47)
[2022-02-03] MEDS: Acetaminophen 325 MG Tablet 650 MG PO ×2 (08:47→21:54)
[2022-02-03] MEDS: Potassium Chloride Oral Tablet 20 MEQ PO (08:47)
[2022-02-03] MEDS: Insulin Glargine-YFGN 100 UNIT/ML Pen SC (10:26)
--- NOTE | 2022-02-03 11:25 | NURSING ---
This RN obtained pt's blood glucose level at 1115 and it read 482, critically high. Stat glucose ordered by charge nurse Lillie and Dr Dutton notified.
[2022-02-03 11:56] LABS: Glucose 480 mg/dL (74-106)
[2022-02-03 12:00] LABS: Bedside Glucose 482 mg/dL (74-106)
[2022-02-03] MEDS: Insulin Lispro 100 UNIT/ML INSULN.PEN 15 UNIT SC (12:05)
--- NOTE | 2022-02-03 15:07 | CHAPLAIN ---
Type of Pastoral Visit _x__ Initial Visit ___ Follow-up Visit ___ On-call Visit ___ General Patient Visit ___ Spiritual Assessment ___ Family Conference ___ Bereavement ___ Rapid Response ___ Code Blue ___ Other (describe below) Pastoral Care Referral From _x__ Patient ___ Family ___ Nurse ___ Physician ___ Bobbin Disker ___ Grooming Salon Manager ___ Other (describe below) Sacrament/Intervention ___ Active listening ___ Anointing ___ Faith ___ Bereavement ___ Communion ___ Diana exploration ___ ___ Life review _x__ Prayer ___ Reconciliation ___ Sacrament of Sick _x__ Supportive presence ___ Wedding ___ Other (describe below) Pastoral Comments patient initially asks for a prayer but then gives some life review with 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
[2022-02-03 16:20] LABS: Bedside Glucose 116 mg/dL (74-106)
--- NOTE | 2022-02-03 19:52 | PN.HOSP_ITS ---
Subjective Subjective Patient was seen and examined today, he does not complain of any nervousness or anxiety to this examiner today. Patient states he is going to an appointment at 180 on of this week. Objective Data Objective Data Vital Signs: Vital Signs Temp Pulse Resp BP Pulse Ox O2 Del Method 97.9 F 89 18 94/64 94 Room Air 02/03/22 14:30 02/03/22 14:30 02/03/22 14:30 02/03/22 14:30 02/03/22 15:33 02/03/22 15:33 Oxygen Delivery Method Room Air Weight: 70 kg Body Mass Index (BMI) 20.2 Intake & Output: Intake and Output for Last 24 Hours 02/01/22 02/02/22 02/03/22 23:59 23:59 23:59 Intake Total 1000 / 1400 4260 / 4260 200 / 200 Balance 1000 / 1400 4260 / 4260 200 / 200 Medical Nutrition Assessment Dietitian: Malnutrition Criteria Met Start: 02/02/22 11:54 Freq: Status: Active Protocol: Document 02/02/22 11:54 PETE (Rec: 02/02/22 11:54 [facility] [id number]) Nutrition Malnutrition Evidence of Malnutrition Exists Yes Malnutrition (severe): Social/Behavioral/ Environmental Evidenced By Suboptimal Energy Intake ( Severe),Weight Loss (Severe), Physical Changes (Moderate) Clinical Problem Altered Nutrient-Related Laboratory Values Etiology related to diabetes Signs/Symptoms as evidenced by gluc 256. Status Active Problem Chronic Disease or Condition Related Malnutrition Etiology related to alcoholism and inability to consume adequate nutrition to meet est nutritional needs Signs/Symptoms as evidenced by 19.4% wt loss and <50% po intake of est nutritional needs x past 1 month; fat/muscle loss to face /upper and lower body Status Active Problem Recommendation Dietitian Recommendations/Changes Will change diet to 2000 rodriguez Consistent CHO to better meet pt estimated rodriguez/pro needs. Will order 4 oz glucerna shake 4x/day w/ medpass for increased nutrition d/t signs/ symptoms of malnutrition. Lab / Micro Data Result Diagrams: 02/01/22 19:24 02/04/22 10:50 Labs: Laboratory Results - last 24 hr 02/02/22 22:34: POC Glucose 248 H 02/03/22 06:44: POC Glucose 132 H 02/03/22 11:19: POC Glucose 482 H* 02/03/22 11:34: Glucose 480 H* 02/03/22 15:44: POC Glucose 116 H Rhythm Strip Rhythm Strip: Sinus Tach Rate: 115 Ectopy: None Physical Exam Const alert, oriented x3, no apparent distress and healthy appearing General Appearance: cooperative, well kempt and well developed Orientation / Consciousness: awake, oriented to person, oriented to place and oriented to time HEENT normocephalic and moist oral mucous membranes Eyes PERRL, EOMs intact bilaterally and conjunctivae normal Neck supple, no JVD, thyroid normal and no carotid bruits General: trachea midline Resp normal respiratory effort and clear to auscultation bilaterally Auscultation: Negative for rales, rhonchi or wheezes Cardio regular rate, regular rhythm, no murmurs, no rub and no gallops GI normal to inspection, nondistended, normoactive bowel sounds, soft to palpation, non-tender and non-distended Extremity no clubbing, cyanosis or edema Skin no rashes or lesions noted General Skin Exam: no breakdown Neuro oriented x3, CN's II-XII intact bilaterally, no focal motor deficits and no sensory deficits noted Sensorium / Orientation: awake and alert Speech: speech normal Psych affect normal Assessment & Plan Assessment/Plan (1) Alcohol withdrawal: PLAN: Plan 1. 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
[2022-02-03] MEDS: Atorvastatin Calcium 10 MG Tablet PO (21:56)
[2022-02-03] MEDS: Insulin Lispro 100 UNIT/ML INSULN.PEN SC (22:01)
[2022-02-03 22:20] LABS: Bedside Glucose 199 mg/dL (74-106)
[2022-02-04] MEDS: Phenobarbital 32.4 MG Tablet 64.8 MG PO ×3 (02:16→12:12)
[2022-02-04 04:07] VITALS: BP 125/73; PULSE 63; RESP 16; TEMP 36.6; O2SAT 98
[2022-02-04 06:03] VITALS: BP 125/73; PULSE 63
[2022-02-04] MEDS: Sucralfate 1 GM Tablet PO ×2 (06:04→10:42)
[2022-02-04 06:46] LABS: Bedside Glucose 109 mg/dL (74-106)
[2022-02-04 07:21] VITALS: O2SAT 96
[2022-02-04] MEDS: Acetaminophen 325 MG Tablet 650 MG PO (08:06)
[2022-02-04] MEDS: Ramipril 10 MG Capsule PO (08:06)
[2022-02-04] MEDS: Pantoprazole Sodium 40 MG Tablet PO (08:06)
[2022-02-04] MEDS: Potassium Chloride Oral Tablet 20 MEQ PO (08:06)
[2022-02-04] MEDS: Thiamine Hydrochloride 100 MG Tablet PO (08:06)
[2022-02-04] MEDS: amLODIPine 5 MG Tablet PO (08:06)
[2022-02-04] MEDS: Multivitamins,Ther W-Minerals Tablet 1 TABLET PO (08:06)
[2022-02-04] MEDS: Folic Acid 1 MG Tablet PO (08:07)
[2022-02-04] MEDS: Glucerna Shake 120 ML LIQUID PO (08:07)
[2022-02-04 08:15] VITALS: BP 123/87; PULSE 67; RESP 18; TEMP 36.7; O2SAT 99
[2022-02-04] MEDS: Insulin Glargine-YFGN 100 UNIT/ML Pen SC (09:55)
--- NOTE | 2022-02-04 10:20 | NURSING ---
Emergency documentation
[2022-02-04] MEDS: Insulin Lispro 100 UNIT/ML INSULN.PEN 8 UNIT SC (10:42)
[2022-02-04 10:50] LABS: Bedside Glucose 494 mg/dL (74-106)
[2022-02-04 11:17] LABS: Glucose 516 mg/dL (74-106)
[2022-02-04 13:14] VITALS: PULSE 102
[2022-02-04] MEDS: hydrALAZINE 25 MG Tablet PO (13:14)
[2022-02-04 13:17] VITALS: BP 121/92; PULSE 102; RESP 18; TEMP 36.8; O2SAT 100
--- NOTE | 2022-02-04 13:28 | DCINST_ITS ---
Discharge Instructions Diet Discharge Diet: 1800 Calorie Control Diet Activity Discharge Activity: Return to Normal Activity Weight Bearing Status: Full weight bearing Follow Up Care Test Results: Test results from this visit will be discussed in further detail at your follow- up appointment, if applicable. Discharge Plan Admission Admit Date/Time: 02/01/22 20:42 Primary Reason for Your Visit: alcohol detox Attending Provider: Asif Dutton Primary Care Provider: Dk Pathak [employer] Consulting Providers: Iman Aguayo ; Conrado Morel Instructions Additional Instructions / Restrictions: Follow-up with [facility] as directed Discharge Orders/Prescriptions Prescriptions: New insulin lispro [Humalog KwikPen Insulin] 100 unit/mL Insulin Pen 5 unit subcut TIDAC Qty: 5 0RF Continued omeprazole 40 mg capsule,delayed release(DR/EC) 40 mg PO DAILY hydrochlorothiazide 12.5 mg tablet 12.5 mg PO DAILY atorvastatin 10 mg tablet 10 mg PO DAILY amlodipine 5 mg tablet 5 mg PO DAILY ramipril 10 mg capsule 10 mg PO BID hydralazine 25 mg tablet 25 mg PO TID metformin 500 MG tablet 500 mg PO BID Farxiga 10 mg Tablet 10 mg PO DAILY Hold Instructions: until you speak with your diabetic clinic or PCP. gabapentin 300 mg Capsule 300 mg PO Q8H PRN PRN (Reason: neruropathic pain) Qty: 30 0RF Rx Instructions: for neuropathy from diabetes multivitamin Tablet 1 tab PO DAILY Rx Instructions: over the counter potassium chloride 10 mEq tablet,ER particles/crystals 20 meq PO DAILY Changed insulin detemir U-100 100 unit/mL (3 mL) Insulin Pen 8 unit SUBCUT DAILY Qty: 3 0RF Discontinued phenobarbital 32.4 mg tablet 32.4 mg PO TID Referrals / Follow Up: Dk Pathak NP, [employer] [Primary Care Provider] - Within 2 Weeks Disposition Disposition (needs filled in before D/C Order can be placed): Home, Self Care
--- NOTE | 2022-02-04 13:49 | PCM.DC.SUM ---
Providers Date of Admission: 02/01/22 Date of Discharge: 02/04/22 Primary Care Physician: Dk Pathak, SUSAN-C Reason For Visit: ETOH WITHDRAWL Diagnosis Discharge Diagnosis (1) Alcohol withdrawal: Status: Acute Code(s): F10.939 - Alcohol use, unspecified with withdrawal, unspecified Plan 1. 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 intake of estimated nutritional needs over the past 1 month-patient's diet was adjusted to better meet his caloric and protein needs, 4 ounces of Glucerna shake 4 times a day with med Pass was given to the patient #8 alcoholic hepatitis Medications at Discharge Home Medications omeprazole 40 mg capsule,delayed release 40 mg PO DAILY reflux 06/10/18 metformin 500 mg tablet 500 mg PO BID diabetes 01/21/19 amlodipine 5 mg tablet 5 mg PO DAILY HEART 10/17/20 atorvastatin 10 mg tablet 10 mg PO DAILY CHOLESTEROL 10/17/20 hydralazine 25 mg tablet 25 mg PO TID BP 10/17/20 hydrochlorothiazide 12.5 mg tablet 12.5 mg PO DAILY BP 10/17/20 ramipril 10 mg capsule 10 mg PO BID BP 10/17/20 dapagliflozin 10 mg tablet (Farxiga) 10 mg PO DAILY DIABETES 09/30/21 gabapentin 300 mg capsule 300 mg PO Q8H PRN PRN neruropathic pain #30 caps 11/08/21 multivitamin 1 tab PO DAILY supplement 11/11/21 potassium chloride 10 mEq tablet,extended release(part/cryst) 20 meq PO DAILY supplement 11/11/21 insulin detemir U-100 100 unit/mL (3 mL) subcutaneous pen 8 unit (0.08 mL) subcut DAILY DM #3 mL 02/04/22 insulin lispro 100 unit/mL subcutaneous pen (Humalog KwikPen (U-100) Insulin) 5 unit (0.05 mL) subcut TIDAC #5 pens 02/04/22 Hospital Course Operations None Procedures None Summary of Care Provided Minutes Spent on Discharge: 31 Hospital Course: This 61-year-old white male was seen in the emergency room at [facility] requesting services for alcohol detox. Patient try to stop drinking at home and was unable to do it because of nausea and vomiting. Work-up in the emergency room showed the patient to have hypokalemia, liver enzyme elevations were noted, creatinine was elevated at 1.31. 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 Patient's insulin was adjusted during his hospital stay. Patient had no major DTs during his hospitalization, on 02/04/2022, patient was seen and examined: On examination he appeared in good health and spirits. Vital signs as documented. Skin warm and dry and without overt rashes. Neck without JVD, neck was supple, trachea midline, thyroid was normal. Lungs clear bilaterally, normal air movement was noted. Heart exam notable for regular rhythm, normal sounds and absence of murmurs, rubs or gallops. Abdomen unremarkable and without evidence of organomegaly, masses, or abdominal aortic enlargement. Bowel sounds are present, abdomen is not distended. Extremities nonedematous, no cyanosis was noted, no clubbing was noted. Neuro: Cranial nerves II through XII are grossly intact, no focal motor deficits were noted, sensation to light touch and pinprick intact, motor exam 5/5 throughout. Psych: Patient is alert and oriented x3, he does not appear anxious or depressed, he does not appear agitated. On 02/04/2022, patient was seen and examined and felt to be stable for discharge home. Medical Records Data Medical Nutrition Assessment Dietitian: Malnutrition Criteria Met Start: 02/02/22 11:54 Freq: Status: Active Protocol: Document 02/02/22 11:54 PETE (Rec: 02/02/22 11:54 [facility] [id number]) Nutrition Malnutrition Evidence of Malnutrition Exists Yes Malnutrition (severe): Social/Behavioral/ Environmental Evidenced By Suboptimal Energy Intake ( Severe),Weight Loss (Severe), Physical Changes (Moderate) Clinical Problem Altered Nutrient-Related Laboratory Values Etiology related to diabetes Signs/Symptoms as evidenced by gluc 256. Status Active Problem Chronic Disease or Condition Related Malnutrition Etiology related to alcoholism and inability to consume adequate nutrition to meet est nutritional needs Signs/Symptoms as evidenced by 19.4% wt loss and <50% po intake of est nutritional needs x past 1 month; fat/muscle loss to face /upper and lower body Status Active Problem Recommendation Dietitian Recommendations/Changes Will change diet to 2000 rodriguez Consistent CHO to better meet pt estimated rodriguez/pro needs. Will order 4 oz glucerna shake 4x/day w/ medpass for increased nutrition d/t signs/ symptoms of malnutrition. Weight / BMI Weight Weight: 70 kg Body Mass Index (BMI) 20.2 ABG / Lab / Microbiology Data Result Diagrams: 02/01/22 19:24 02/04/22 10:50 Laboratory: Laboratory Results - last 24 hr 02/03/22 15:44: POC Glucose 116 H 02/03/22 22:00: POC Glucose 199 H 02/04/22 06:05: POC Glucose 109 H 02/04/22 10:29: POC Glucose 494 H* 02/04/22 10:50: Glucose 516 H* D/C Instructions Discharge Diet: 1800 Calorie Control Diet Weight Bearing Status: Full weight bearing Meaningful Use Info Meaningful Use Diagnoses (Choose all that apply): None applicable Discharge Plan Admission Admit Date/Time: 02/01/22 20:42 Primary Reason for Your Visit: alcohol detox Attending Provider: Asif Dutton Primary Care Provider: Dk Pathak BRAILLE TYPIST Consulting Providers: Iman Aguayo ; Conrado Morel Instructions Additional Instructions / Restrictions: Follow-up with 180 as directed Discharge Orders/Prescriptions Prescriptions: New insulin lispro [Humalog KwikPen Insulin] 100 unit/mL Insulin Pen 5 unit subcut TIDAC Qty: 5 0RF Continued omeprazole 40 mg capsule,delayed release(DR/EC) 40 mg PO DAILY hydrochlorothiazide 12.5 mg tablet 12.5 mg PO DAILY atorvastatin 10 mg tablet 10 mg PO DAILY amlodipine 5 mg tablet 5 mg PO DAILY ramipril 10 mg capsule 10 mg PO BID hydralazine 25 mg tablet 25 mg PO TID metformin 500 MG tablet 500 mg PO BID Farxiga 10 mg Tablet 10 mg PO DAILY Hold Instructions: until you speak with your diabetic clinic or PCP. gabapentin 300 mg Capsule 300 mg PO Q8H PRN PRN (Reason: neruropathic pain) Qty: 30 0RF Rx Instructions: for neuropathy from diabetes multivitamin Tablet 1 tab PO DAILY Rx Instructions: over the counter potassium chloride 10 mEq tablet,ER particles/crystals 20 meq PO DAILY Changed insulin detemir U-100 100 unit/mL (3 mL) Insulin Pen 8 unit SUBCUT DAILY Qty: 3 0RF Discontinued phenobarbital 32.4 mg tablet 32.4 mg PO TID Referrals / Follow Up: Dk Pathak BRAILLE TYPIST, BRAILLE TYPIST-C [Primary Care Provider] - Within 2 Weeks Disposition Disposition (needs filled in before D/C Order can be placed): Home, Self Care Charges/Coding Visit Charges Inpatient E&M: 94875 Disch Hosp
== END 2022-02-04 12:03 | disposition home or self-care (01) | DRG 896 ==
LOC: ED 20:33 → MS3 21:18
PROVIDERS: Internal Medicine; Admitting Provider Family Medicine; Emergency Provider Emergency Medicine; PCP Nurse Practitioner Family; Visit Provider Internal Medicine
DX: F10.239 Alcohol dependence with withdrawal, unspecified (principal); E43 Unspecified severe protein-calorie malnutrition; I49.5 Sick sinus syndrome; E11.40 Type 2 diabetes mellitus with diabetic neuropathy, unspecified; K70.10 Alcoholic hepatitis without ascites; Z79.4 Long term (current) use of insulin; I10 Essential (primary) hypertension; E78.00 Pure hypercholesterolemia, unspecified; E87.6 Hypokalemia; K21.9 Gastro-esophageal reflux disease without esophagitis; F17.210 Nicotine dependence, cigarettes, uncomplicated; N28.9 Disorder of kidney and ureter, unspecified; Z68.20 Body mass index [BMI] 20.0-20.9, adult; Z79.899 Other long term (current) drug therapy; Z95.0 Presence of cardiac pacemaker; Z95.3 Presence of xenogenic heart valve
CPT/HCPCS: 36415; 71045; 80048; 80076; 82947; 82962; 83690; 83735; 84100; 84484; 85025; 93005; 97802; 99285; 99406; J7030; J7120; A4216; J2405

== ENCOUNTER 2022-03-21 17:42 | Inpatient (IN) | payer SELFPAY ==
[2022-03-21 17:43] VITALS: BP 181/68; PULSE 119; RESP 18; TEMP 36.4; O2SAT 98; BMI 20.9
--- NOTE | 2022-03-21 17:56 | EDS_ITS ---
HPI History of Present Illness Chief Complaint: ETOH Intox Detail of Chief Complaint: Requesting detox for alcohol abuse. Informant: patient Onset/Context/Timing Onset: Today Context: Gradual Onset Current Severity: Mild Maximum Severity: Mild Associated Symptoms Associated Symptoms: Positive for vomiting* and diarrhea* Narrative Narrative: 41-year-old male history of alcohol abuse. Also history of diabetes hypertension. States he was detoxed 1 to 2 months ago. Stopped drinking yesterday. Today has had nausea, vomiting diarrhea. That his blood sugar earlier today was 265. Denies any fever. No abdominal pain. No dysuria. Prior similar symptoms: Yes Recent Illness/Hospitalization: Yes PFSH PFSH Medical History Acute hypokalemia Adrenal nodule Alcohol dependence Alcoholism Alcoholism Aortic aneurysm Ascending aortic dissection (~2005) Cardiac pacemaker in situ (~06/2016) Desire for detoxification Diabetes mellitus, type II Essential hypertension ETOH abuse Hiatal hernia History of diabetes mellitus HTN (hypertension) Hx of hypercholesterolemia Left carotid bruit Non-sustained ventricular tachycardia Pacemaker Pleuritic chest pain Pure hypercholesterolemia Right bundle branch block (RBBB) Shortness of breath Sick sinus syndrome Smoker Stroke Substance abuse SVT (supraventricular tachycardia) Thoracic aortic aneurysm Tobacco use Home Medications omeprazole 40 mg capsule,delayed release 40 mg PO DAILY reflux 06/10/18 [History Last Taken 11/11/21] metformin 500 mg tablet 500 mg PO DAILY diabetes 01/21/19 [History Last Taken 11/11/21] amlodipine 5 mg tablet 5 mg PO DAILY HEART 10/17/20 [History Last Taken 11/11/21] atorvastatin 10 mg tablet 10 mg PO DAILY CHOLESTEROL 10/17/20 [History Last Taken 11/11/21] hydralazine 25 mg tablet 25 mg PO TID BP 10/17/20 [History Last Taken 11/11/21] hydrochlorothiazide 12.5 mg tablet 12.5 mg PO DAILY BP 10/17/20 [History Last Taken 11/11/21] ramipril 10 mg capsule 10 mg PO BID BP 10/17/20 [History Last Taken 11/11/21] dapagliflozin 10 mg tablet (Farxiga) 10 mg PO DAILY DIABETES 09/30/21 [History Last Taken 11/11/21] gabapentin 300 mg capsule 300 mg PO Q8H PRN PRN neruropathic pain #30 caps 11/08/21 [Rx Last Taken 11/11/21] multivitamin 1 tab PO DAILY supplement 11/11/21 [History Last Taken 11/10/21] potassium chloride 10 mEq tablet,extended release(part/cryst) 20 meq PO DAILY supplement 11/11/21 [History Last Taken Unknown] insulin detemir U-100 100 unit/mL (3 mL) subcutaneous pen 8 unit (0.08 mL) subcut DAILY DM #3 mL 02/04/22 [Rx Last Taken 11/11/21] insulin lispro 100 unit/mL subcutaneous pen (Humalog KwikPen (U-100) Insulin) 5 unit subcut TIDAC dm 03/21/22 [History Last Taken Unknown] Allergy/AdvReac Type Severity Reaction Status Date / Time No Known Allergies Allergy Verified 03/21/22 17:43 Family History Father CAD (coronary artery disease) Mother Dementia Surgical History H/O aortic valve replacement H/O cardiac catheterization History of aortic aneurysm repair (~2016) History of aortic valve replacement with bioprosthetic valve (~2016) History of cataract surgery History of hernia repair Social History (Updated 03/21/22 @ 18:[address] Iman Aguayo MD) Smoking Status: Current every day smoker tobacco type: cigarettes alcohol intake: current alcohol intake frequency: 0-2 drinks per day details: Reports currently ~ 2 tall boys daily. substance use type: former substance user caffeine: Yes Type: coffee Number of servings: 3 ROS ROS ED ROS Narrative Nausea, vomiting and diarrhea. Review of Systems ROS Unobtainable: Denies due to encephalopathy Constitutional Constitutional ED: Denies chills or fever(s) Eyes Eyes: Denies blurry vision ENT ENT ED: Denies ear pain Cardiovascular Cardiovascular: Denies chest pain Respiratory/Chest Respiratory/Chest: Denies cough or dyspnea Gastrointestinal Gastrointestinal: Reports diarrhea, nausea and vomiting; Denies abdominal pain Genitourinary Genitourinary ED: Denies dysuria Musculoskeletal Musculoskeletal: Denies arthralgias Integumentary Denies abscess Neurologic Neurologic: Denies headache(s) Psychiatric Psychiatric: Denies anxiety Endocrine Endocrinology: Denies cold intolerance Hematologic/Lymphatic Hematologic/Lymphatic: Denies easy bleeding or easy bruising Allergic/Immunologic Allergic/Immunologic ED: Denies mouth swelling or tongue swelling EXAM Physical Exam Narrative Exam Narrative: 61-year-old no acute distress. Vital signs stable afebrile. Initial blood pressure 181/68. He does not look septic or toxic. Looks mildly dehydrated. H EENT exam dry mucous membranes otherwise unremarkable. Neck nontender. Lungs clear. Heart tachycardic rate about 120. 3 or 6 systolic ejection murmur. Abdomen soft nontender normal bowel sounds no peritoneal signs. Well-healed sternotomy scar. Moving all 4 extremities. Calves are nontender without edema or cords. Neurologically is awake alert with no focal motor deficits. Const Vital Signs: 03/21/22 17:43 Temperature 97.5 F L Temperature Source Temporal Pulse Rate 119 H Respiratory Rate 18 Blood Pressure 181/68 H Blood Pressure Mean 105 Pulse Ox 98 Oxygen Delivery Method Room Air Positive well nourished and well developed; Negative for obese, cachectic, contractures or unkempt General Appearance ED: well developed and NAD; Negative for unkempt, cachectic, contractures or pallor Nutritional Appearance: Negative for cachectic or obese HEENT Reports dry mucous membranes; Denies moist mucous membranes Negative for atraumatic or trauma Mouth ED: Yes dry mucous membranes Mouth: dry mucous membranes Eyes PERRL and EOMs intact bilaterally General Eye ED: Negative for pale conjunctiva or scleral icterus Neck no lymphadenopathy, supple and no JVD Thyroid: Negative for tender Lymph Lymphatic: no lymphadenopathy noted; Negative for lymphadenopathy or other Chest Wall inspection of chest normal and palpation of chest normal Chest: Negative for other Resp normal respiratory effort and clear to auscultation bilaterally Effort and Inspection: Negative for retractions Auscultation: Negative for rales, rhonchi or wheezes Cardio regular rhythm, S1 normal heart sound, S2 normal heart sound and no murmurs; Negative for regular rate Rate: tachycardic GI soft to palpation, non-tender, non-distended and no masses Inspection: Negative for abdominal distention Auscultation: Negative for hyperactive bowel sounds Palpation: Negative for tender, guarding or rigid Back/Spine no CVA tenderness General Back: Negative for CVA tenderness Cervical Spine: Negative for cervical spine tenderness Thoracic Spine / Upper Back: Negative for thoracic spinal tenderness Lumbar Spine / Lower Back: Negative for lumbar spinal tenderness Coccyx: Negative for swelling Extremity Extremity Narrative: Moving all 4 extremities. Nontender. No edema. General Extremety ED: Negative for edema or tenderness General Extremity: Negative for edema Neuro oriented x3 Sensorium / Orientation: alert, oriented to person, oriented to place and oriented to time; Negative for confused, lethargic or stuporous Speech: speech normal Motor Exam: strength 5/5 throughout Psych mental status grossly normal and thought process normal Appearance: Negative for unkempt Attitude: No belligerent, No agitated, No aggressive and No hostile Mood & Affect: Negative for depressed, anxious or tearful Skin General Skin Exam: Negative for jaundice or pallor Rashes: no rashes Trauma: Negative for abrasion MDM MDM MDM Narrative Medical decision making narrative: 61-year-old male history of alcohol abuse. Requesting detox. He also has been having nausea vomiting and diarrhea since this morning. Clinically looks dehydrated. He will be treated with a liter normal saline. IV Zofran. Screening labs to be obtained. Once his return of evaluate does and is medically cleared I will speak to the hospitalist about admission. Repeat exam patient doing well at 6:34 PM. Hospitalist is evaluated patient and is admitting the patient. Patient is improving on IV fluids and IV Zofran. Lab Data Attestation: I reviewed the patient's lab results. Lab results narrative: CBC has a white count of 6. H&H 13.2 and 38.3. Platelets are slightly low at 144,000. Electrolytes showing potassium of 3.2 gap of 12 BUN of 4 creatinine 1.1. Glucose 294. Alcohol is negative. Tox screen pending. Labs: Laboratory Results - last 24 hr 03/21/22 03/21/22 03/21/22 17:56 18:00 18:00 WBC 6.0 RBC 3.88 L Hgb 13.2 Hct 38.3 L MCV 98.7 H MCH 34.0 H MCHC 34.5 RDW Std Deviation 49.6 H RDW Coeff of Kalpana 13.6 Plt Count 144 L MPV 11.1 Immature Gran % (Auto) 0.500 Neut % (Auto) 75.0 H Lymph % (Auto) 10.0 L Zapata % (Auto) 8.1 Eos % (Auto) 5.6 H Baso % (Auto) 0.8 Absolute Neuts (auto) 4.5 Absolute Lymphs (auto) 0.60 L Nucleated RBC % 0 Sodium 142 Potassium 3.2 L Chloride 98 Carbon Dioxide 32.0 Anion Gap 12 BUN 4 L Creatinine 1.11 Estim Creat Clear Calc 68.96 Est GFR (MDRD) Af Amer 87 Est GFR (MDRD) Non-Af 72 BUN/Creatinine Ratio 3.6 L Glucose 294 H Calcium 8.3 L Ethyl Alcohol POC Glucose 337 H 03/21/22 18:00 WBC RBC Hgb Hct MCV MCH MCHC RDW Std Deviation RDW Coeff of Kalpana Plt Count MPV Immature Gran % (Auto) Neut % (Auto) Lymph % (Auto) Zapata % (Auto) Eos % (Auto) Baso % (Auto) Absolute Neuts (auto) Absolute Lymphs (auto) Nucleated RBC % Sodium Potassium Chloride Carbon Dioxide Anion Gap BUN Creatinine Estim Creat Clear Calc Est GFR (MDRD) Af Amer Est GFR (MDRD) Non-Af BUN/Creatinine Ratio Glucose Calcium Ethyl Alcohol < 3.0 POC Glucose Discharge Plan Triage Chief Complaint: ETOH Intox Other Complaint: Nausea/Vomiting/Diarrhea ED Provider: Vinh Lomeli Dx/Rx/DC Orders Clinical Impression: Alcohol abuse, Admitted to alcohol detoxification center, Acute dehydration, History of diabetes mellitus Primary Care Provider: Dk Pathak [employer] OFFICER
[2022-03-21] MEDS: Ondansetron 4 MG/2 ML Vial IV (18:05)
[2022-03-21 18:11] LABS: Absolute Neutrophil Count 4.5 X10^3/uL (2.0-7.7); Basophil# 0.05 X10^3/uL; Basophil% 0.8 % (0-1); Eosinophil# 0.34 X10^3/uL; Eosinophils% 5.6 % (0-5); Hematocrit 38.3 % (40-54); Hemoglobin 13.2 g/dL (13.0-16.5); Mean Corp Hgb Conc 34.5 g/dL (32-36); Mean Corpuscular Volume 98.7 fL (80-94); Mean Platelet Vol. 11.1 fl (6.2-12.0); Monocyte# 0.49 X10^3/uL; Monocyte% 8.1 % (0-10); NRBC Flagged by Analyzer 0 % (0-5); Neutrophil # 4.51 X10^3/uL (2.7-7.7); POSITIVE DIFFERENTIAL YES; Platelet Count 144 K/mm3 (150-450); RBC Distribution Width CV 13.6 % (11.6-14.6); RBC Distribution Width SD 49.6 fl (35.1-43.9); Red Blood Count 3.88 M/mm3 (4.6-6.2)
[2022-03-21 18:15] VITALS: BP 159/99; PULSE 86; RESP 18; TEMP 36.9; O2SAT 100
[2022-03-21 18:15] LABS: Bedside Glucose 337 mg/dL (74-106)
[2022-03-21 18:16] LABS: Differential Indicated SCAN CRITERIA MET
--- NOTE | 2022-03-21 18:31 | PCM.HP.STD ---
HPI - General General Date of Admission: 03/21/22 Date of Service: 03/21/22 Chief Complaint: Acute EtOH withdrawal HPI Narrative The patient is a 61 y/o M w/ PMHx: Chronic macrocytic anemia, Diabetes mellitus type II, Hx sick sinus syndrome s/p pacemaker placement, Hx Ascending aortic dissection s/p repair, Valvular heart disease s/p AVR with bioprosthetic valve, HTN, HLD, GERD, EtOH abuse (Prior reported 3-4 Tall Boys daily->currently had transitioned down to 2 daily), admitted for acute EtOH detoxification 11/05/21, 11/11/21 and most recently 02/01/22 who now re-presents to the [facility] ED on 03/21/22 with history of unfortunately started drinking again since his most recent detoxification discharge at the end of January with last drink the day prior, again tall boys usually 2/day now with onset since then nausea, emesis and loose stools with no associated specific abdominal pain but in addition inability to maintain appropriate hydration, tremors, tactile disturbances, fatigue and restlessness prompting eventual ED evaluation. He notes that he discussed his status with his daughter who strongly encouraged him to present to the ED for treatment again which he finally decided to do. Work-up in the ED included T97.5, heart rate 119, BP 181/68, respiratory rate 18, 98% on room air, CBC with WC 6, hemoglobin 13.2, platelet 144 with lymphopenia, pending BMP upon requested evaluation, pending ethyl alcohol upon requested evaluation, POC glucose 337. [facility] Medical History Acute hypokalemia Adrenal nodule Alcohol dependence Alcoholism Alcoholism Aortic aneurysm Ascending aortic dissection (~2005) Cardiac pacemaker in situ (~06/2016) Desire for detoxification Diabetes mellitus, type II Essential hypertension ETOH abuse Hiatal hernia History of diabetes mellitus HTN (hypertension) Hx of hypercholesterolemia Left carotid bruit Non-sustained ventricular tachycardia Pacemaker Pleuritic chest pain Pure hypercholesterolemia Right bundle branch block (RBBB) Shortness of breath Sick sinus syndrome Smoker Stroke Substance abuse SVT (supraventricular tachycardia) Thoracic aortic aneurysm Tobacco use Home Medications omeprazole 40 mg capsule,delayed release 40 mg PO DAILY reflux 06/10/18 [History Last Taken 11/11/21] metformin 500 mg tablet 500 mg PO DAILY diabetes 01/21/19 [History Last Taken 11/11/21] amlodipine 5 mg tablet 5 mg PO DAILY HEART 10/17/20 [History Last Taken 11/11/21] atorvastatin 10 mg tablet 10 mg PO DAILY CHOLESTEROL 10/17/20 [History Last Taken 11/11/21] hydralazine 25 mg tablet 25 mg PO TID BP 10/17/20 [History Last Taken 11/11/21] hydrochlorothiazide 12.5 mg tablet 12.5 mg PO DAILY BP 10/17/20 [History Last Taken 11/11/21] ramipril 10 mg capsule 10 mg PO BID BP 10/17/20 [History Last Taken 11/11/21] dapagliflozin 10 mg tablet (Farxiga) 10 mg PO DAILY DIABETES 09/30/21 [History Last Taken 11/11/21] gabapentin 300 mg capsule 300 mg PO Q8H PRN PRN neruropathic pain #30 caps 11/08/21 [Rx Last Taken 11/11/21] multivitamin 1 tab PO DAILY supplement 11/11/21 [History Last Taken 11/10/21] potassium chloride 10 mEq tablet,extended release(part/cryst) 20 meq PO DAILY supplement 11/11/21 [History Last Taken Unknown] insulin detemir U-100 100 unit/mL (3 mL) subcutaneous pen 8 unit (0.08 mL) subcut DAILY DM #3 mL 02/04/22 [Rx Last Taken 11/11/21] insulin lispro 100 unit/mL subcutaneous pen (Humalog KwikPen (U-100) Insulin) 5 unit subcut TIDAC dm 03/21/22 [History Last Taken Unknown] Allergy/AdvReac Type Severity Reaction Status Date / Time No Known Allergies Allergy Verified 03/21/22 17:43 Family History Father CAD (coronary artery disease) Mother Dementia Surgical History H/O aortic valve replacement H/O cardiac catheterization History of aortic aneurysm repair (~2016) History of aortic valve replacement with bioprosthetic valve (~2017) History of cataract surgery History of hernia repair Social History (Updated 03/21/22 @ 18:[address] Iman Aguayo MD) Smoking Status: Current every day smoker tobacco type: cigarettes alcohol intake: current alcohol intake frequency: 0-2 drinks per day details: Reports currently ~ 2 tall boys daily. substance use type: former substance user caffeine: Yes Type: coffee Number of servings: 3 ROS ROS Narrative Admission Review of Systems: CONSTITUTIONAL: No weight loss, fever, chills, + weakness or fatigue. HEENT: Eyes: No visual loss, blurred vision, double vision or yellow sclerae. Ears, Nose, Throat: No hearing loss, sneezing, congestion, runny nose or sore throat. SKIN: No rash or itching, lesions, wounds. CARDIOVASCULAR: No chest pain, palpitations, edema, orthopnea, syncopal events. RESPIRATORY: No shortness of breath, cough or sputum, wheezing, hemoptysis. GASTROINTESTINAL: + anorexia, nausea, vomiting, loose stools, No abdominal pain, melena, BRBPR. GENITOURINARY: No dysuria, frequency, urgency or retention. NEUROLOGICAL: + Tactile disturbances, mild tremors, No headache, dizziness, syncope, paralysis, ataxia, numbness or tingling in the extremities, focal weakness, change in bowel or bladder control, seizure. MUSCULOSKELETAL: + muscle, back pain, joint pain or stiffness. HEMATOLOGIC: + anemia, bleeding or bruising. LYMPHATICS: No enlarged nodes. No history of splenectomy. PSYCHIATRIC: + history of depression or anxiety. ENDOCRINOLOGIC: + reports of sweating, No cold or heat intolerance. No polyuria or polydipsia. ALLERGIES: No history of asthma, hives, eczema or rhinitis. Vital Signs Vital Signs Vital Signs: 03/21/22 17:43 Temperature 97.5 F L Temperature Source Temporal Pulse Rate 119 H Respiratory Rate 18 Blood Pressure 181/68 H Blood Pressure Mean 105 Pulse Ox 98 Oxygen Delivery Method Room Air Weight Weight: 150 lb Body Mass Index (BMI) 20.9 Physical Exam Narrative Physical Examination: General: Awake, alert, oriented x 3 and cooperative, seated upright in ED bed, fatigued, mild tremors noted. Skin: Normal color, normal turgor, no icterus, no cyanosis except occasional staged ecchymoses. HEENT: AT/NC, EOMI, PERRLA, dry MM, no carotid bruits or JVD noted. Lungs: Diminished, greater bases, appropriate effort, no rales, ronchi or wheezing. Heart: Mildly tachycardic with regular rhythm; no gallop, rub audible, + SM. Abdomen: Soft, NTTP, ND, hyperactive BS, + HM. Extremities: No cyanosis, clubbing, or edema. Neurological: Patient awake, alert, oriented as noted, cognitive function appears baseline intact; pupils equally reactive to light and accommodation, cranial nerves II-XII grossly normal, moving all 4 extremities, no focal deficits, strength mildly to moderately global decrease secondary to acute presentation, mildly tremulous. Psychiatric: Affect appears mildly tremulous, flat affect, reports feeling like an idiot for starting to drink again, improves with discussions. Results Lab / Micro Data Result Diagrams: 03/21/22 18:00 03/21/22 18:00 Assessment & Plan Assessment/Plan (1) Alcohol withdrawal: PLAN: Plan The patient is a 61 y/o M w/ PMHx: Chronic macrocytic anemia, Diabetes mellitus type II, Hx sick sinus syndrome s/p pacemaker placement, Hx Ascending aortic dissection s/p repair, Valvular heart disease s/p AVR with bioprosthetic valve, HTN, HLD, GERD, EtOH abuse, admitted for acute EtOH detoxification 11/05/21, 11/11/21 and most recently 02/01/22 who now re-presents to the [facility] ED on 03/21/22 with history of unfortunately started drinking again since his most recent detoxification discharge at the end of January with last drink the day prior with onset of acute alcohol withdrawal symptoms. #1.? Acute EtOH Withdrawal with associated nausea, emesis, loose stools, similar to prior acute withdrawal presentation: Will admit to [facility], currently only CBC has returned upon evaluation of patient, BMP/hepatic profile pending but will ascertain any renal insufficiency or electrolyte disturbances once results given GI losses, will initiate and continue on protocol with taper course of Phenobarbital, scheduled gabapentin for seizure prophylaxis, as needed Catapres, Bentyl, Vistaril, IV fluids, IV antiemetics, Tylenol as needed for pain. Will consult Case management for assistance for transition to next level of rehabilitation care. Mag, phos pending. Maintain on CIWA protocol concurrently. If symptoms do not improve with acute treatment EtOH withdrawal as they have prior would obtain stool enteric and cdiff to be cautious although symptoms only started when his withdrawal started, again similar to last admission. #2.? Valvular heart disease: Patient initially status post mechanical valve replacement eventually transitioned to bioprosthetic AV replacement, 04/02/2020 echocardiogram with EF 70%, severe concentric LVH, trivial MVI, mild TVI, stable appearing bioprosthetic AV apparatus, RVSP 19 mmHg, transmitral Doppler flow suggestive of impaired relaxation LV, ICD/pacer leads identified. #3.? Diabetes mellitus type II with Hyperglycemia: Admission POC glucose 337. Will hold oral home regimen, continue home insulin regimen with 1/2 dose if unable to tolerate oral initially, will start with clears and once improving with resolved nausea and emesis will transition to ADA diet, accu checks w/ ISS. #4.? Chronic macrocytic anemia: Admission hemoglobin 13.2, baseline hemoglobin vacillates between 12-14, continue vitamin B12/thiamine/folic acid supplementation, trend CBC as needed. #5. History ascending aortic dissection: Status post repair, most recent CT noted 09/08/2019 with expected appearance of repaired normal diameter of the aorta. #6.? Hypertension: Given unclear renal status will hold on immediate addition ACEI/HCTZ, will continue norvasc and hydralazine until function obtained, PRN IV hydralazine as needed. #7.? Hyperlipidemia: We will continue statin therapy. #8.? Hx Sick Sinus Syndrome: s/p pacemaker placement. #9.? Tobacco Abuse: Encouraged cessation, inpatient consultation per RT, NR if desired. #10.? GERD: Will maintain on BID PPI and carafate given recent bouts N/V, PRN mylanta. #13.? DVT prophylaxis: Encourage ambulation, with EtOH detoxification admission would consider risk low. Admission Evaluation Time spent evaluating chart, patient history, patient evaluation, care planning and discussion with specialists: 75 minutes. Charges/Coding Visit Charges Inpatient E&M: 64016 Init Hosp L3
[2022-03-21 18:32] LABS: Anion Gap 12 (5-15); BUN 4 mg/dL (7-18); BUN/Creat Ratio 3.6 RATIO (10-20); Calcium,Total 8.3 mg/dL (8.5-10.1); Chloride 98 mmol/L (98-107); Creatinine, Serum 1.11 mg/dL (0.70-1.30); EST Glomerular Filtration Rate 72 mL/min (>60); Est Glom Filt Rate - Afr Amer 87 mL/min (>60); Estimated Creatinine Clearance 68.96 ml/min; Glucose 294 mg/dL (74-106); Potassium 3.2 mmol/L (3.5-5.1); Sodium Level 142 mmol/L (136-145)
[2022-03-21 18:33] LABS: Alcohol, Blood (Medical)-Serum < 3.0 mg/dL
--- NOTE | 2022-03-21 18:43 | CM.ED ---
Addendum entered by Aurora Rush 03/21/22 18:49: BLANKA also provided patient with medicaid application. Aurora SPEARS Original Note: BLANKA Note Referral Reason: RAMP Referral Source: Case Find SW met with patient to discuss the RAMP program. Patient reports they are detoxing from alcohol. Patient said I am not drinking that much but I really needed to come in for help. Patient said How it (alcohol) reacts with my medicine .. I was not doing well. Patient is linked with outpatient AOD provider, Werner.Patient said that he is drinking a couple of tall boys a day and his last drink was yesterday. Patient was advised that the RAMP program includes no outside food or visitors, no phone access and all personal items are secured. BLANKA called Treatment Navigator and updated her regarding patient?s admission to [facility]. Plan: RAMP Aurora SPEARS
[2022-03-21 18:45] LABS: AST(SGOT) 334 U/L (15-37); Alanine Aminotransfer ALT/SGPT 108 U/L (16-61); Albumin, Serum 2.8 g/dL (3.2-5.0); Alkaline Phosphatase 144 U/L (45-117); Bilirubin, Direct 0.55 mg/dL (0.00-0.30); Protein, Total 5.8 g/dL (6.4-8.2)
[2022-03-21 18:47] LABS: Magnesium 1.2 mg/dL (1.6-2.6); Phosphorus 3.6 mg/dL (2.5-4.9)
[2022-03-21 18:58] LABS: Differential Comment SCANNED
[2022-03-21 19:36] VITALS: BP 156/91; PULSE 82; RESP 18; TEMP 36.9; O2SAT 98
[2022-03-21 19:44] VITALS: BMI 19.1
[2022-03-21] MEDS: Phenobarbital 32.4 MG Tablet 64.8 MG PO (20:10)
[2022-03-21] MEDS: Acetaminophen 325 MG Tablet 650 MG PO (20:10)
[2022-03-21] MEDS: Lactated Ringers 1,000 ML 125 ML IV (20:57)
[2022-03-21 21:24] VITALS: BP 161/96; PULSE 66
[2022-03-21] MEDS: hydrALAZINE 25 MG Tablet PO (21:24)
[2022-03-21] MEDS: Pantoprazole Sodium 40 MG Tablet PO (21:25)
[2022-03-21] MEDS: traZODone 100 MG Tablet PO (21:25)
[2022-03-21] MEDS: hydrOXYzine PAM 25 MG Capsule 50 MG PO (21:25)
[2022-03-21] MEDS: Sucralfate 1 GM Tablet PO (21:25)
[2022-03-21] MEDS: Insulin Lispro 100 UNIT/ML INSULN.PEN SC (21:27)
[2022-03-21 21:58] LABS: Amphetamine Urine VISTA NEGATIVE (<1000 ng/mL); Barbiturate Urine VISTA NEGATIVE (< 200 ng/mL); Benzodiazepine Urine VISTA NEGATIVE (< 200 ng/mL); Cocaine Urine VISTA NEGATIVE (< 300 ng/mL); Ecstacy Urine VISTA NEGATIVE (< 500 ng/mL); Methadone Urine VISTA NEGATIVE (< 300 ng/mL); PCP Urine VISTA NEGATIVE (< 25 ng/mL); THC Urine VISTA NEGATIVE (< 50 ng/mL); Vista UDS pH Range 7
[2022-03-21 23:30] LABS: Bedside Glucose 281 mg/dL (74-106)
[2022-03-22 00:44] VITALS: BP 103/81; PULSE 97; RESP 16; TEMP 36.7; O2SAT 94
[2022-03-22] MEDS: Phenobarbital 32.4 MG Tablet 64.8 MG PO ×6 (00:49→20:14)
[2022-03-22] MEDS: Gabapentin 300 MG Capsule PO (02:52)
[2022-03-22 04:08] VITALS: BP 107/56; PULSE 91; RESP 18; TEMP 36.9; O2SAT 95
[2022-03-22] MEDS: Potassium Chloride Oral Tablet 20 MEQ 40 MEQ PO (04:37)
[2022-03-22] MEDS: Magnesium Sulfate 4gm/100mL 4 GM/100 ML IV.SOLN. IV (05:03)
[2022-03-22 06:30] LABS: ALB/GLOB Ratio 0.8 RATIO (0.9-2.4); AST(SGOT) 254 U/L (15-37); Alanine Aminotransfer ALT/SGPT 76 U/L (16-61); Alkaline Phosphatase 104 U/L (45-117); Anion Gap 7 (5-15); BUN 3 mg/dL (7-18); BUN/Creat Ratio 3.5 RATIO (10-20); Calcium,Total 7.3 mg/dL (8.5-10.1); Chloride 101 mmol/L (98-107); Creatinine, Serum 0.86 mg/dL (0.70-1.30); EST Glomerular Filtration Rate 96 mL/min (>60); Est Glom Filt Rate - Afr Amer 116 mL/min (>60); Globulin 2.4 g/dL (2.2-4.2); Glucose 302 mg/dL (74-106); Potassium 2.9 mmol/L (3.5-5.1); Protein, Total 4.4 g/dL (6.4-8.2); Sodium Level 140 mmol/L (136-145)
[2022-03-22 06:59] VITALS: BP 111/85; PULSE 79
[2022-03-22] MEDS: hydrALAZINE 25 MG Tablet PO (06:59)
[2022-03-22] MEDS: Sucralfate 1 GM Tablet PO (07:00)
[2022-03-22] MEDS: hydrOXYzine PAM 25 MG Capsule 50 MG PO (07:03)
[2022-03-22 07:33] LABS: Hemoglobin A1c 8.3 % (3.8-5.6)
[2022-03-22] MEDS: Insulin Lispro 100 UNIT/ML INSULN.PEN SC ×5 (08:09→17:26)
[2022-03-22] MEDS: Thiamine Hydrochloride 100 MG Tablet PO (08:11)
[2022-03-22] MEDS: Folic Acid 1 MG Tablet PO (08:12)
[2022-03-22] MEDS: Multivitamins,Therapeutic Tablet 1 TABLET PO (08:12)
[2022-03-22] MEDS: Glucerna Shake 120 ML LIQUID PO ×4 (10:19→21:09)
[2022-03-22] MEDS: Insulin Glargine-YFGN 100 UNIT/ML Pen 8 UNIT SC (10:20)
[2022-03-22] MEDS: Pantoprazole Sodium 40 MG Tablet PO (10:22)
[2022-03-22] MEDS: amLODIPine 5 MG Tablet PO (10:23)
[2022-03-22 10:34] VITALS: BP 96/62; PULSE 52; RESP 18; TEMP 36.6; O2SAT 98
[2022-03-22 10:36] LABS: Bedside Glucose 267 mg/dL (74-106)
--- NOTE | 2022-03-22 11:15 | PN.HOSP_ITS ---
Reason for Visit Reason for Visit: Diagnoses Alcohol use, unspecified with withdrawal, unspecified (03/21/22) Subjective Subjective Patient was seen and examined today, he was admitted yesterday for alcohol detox services, patient potassium was low at 2.9 today, I have ordered oral potassium, he is also getting IV magnesium, after this is finished, I will discontinue the patient's Hep-Lock. Patient appears alert and appropriate and able to take fluids, he does not show any signs of active withdrawal at this time Objective Data Objective Data Vital Signs: Vital Signs Temp Pulse Resp BP Pulse Ox O2 Del Method 98 F 52 L 18 96/62 98 Room Air 03/22/22 10:34 03/22/22 10:34 03/22/22 10:34 03/22/22 10:34 03/22/22 10:34 03/22/22 10:34 Oxygen Delivery Method Room Air Weight: 62.3 kg Body Mass Index (BMI) 19.1 Intake & Output: Intake and Output for Last 24 Hours 03/20/22 03/21/22 03/22/22 23:59 23:59 23:59 Intake Total 900 / 900 1400.5 / 1400.5 Balance 900 / 900 1400.5 / 1400.5 Medical Nutrition Assessment Dietitian: Malnutrition Criteria Met Start: 03/22/22 10:22 Freq: Status: Active Protocol: Document 03/22/22 10:22 (Rec: 03/22/22 10:22 [id number]) Nutrition Malnutrition Evidence of Malnutrition Exists Yes Malnutrition (moderate): Chronic Evidenced By Suboptimal Energy Intake ( Moderate),Physical Changes ( Mild) Clinical Problem Chronic Disease or Condition Related Malnutrition Etiology moderate, chronic malnutrition related to inadequate protein /calorie intake d/t alcohol abuse Signs/Symptoms as evidenced by estimated PO intake meeting <75% of estimated energy needs > 3 months; Mild muscle wasting/ fat loss evident per physical exam in orbital, clavicle, acromion, and temporal areas; BMI 19.2 Status Active Problem Recommendation Dietitian Recommendations/Changes cardiac, carbohydrate controlled diet; will increase to 2000 calories/day. Lab / Micro Data Result Diagrams: 03/21/22 18:00 03/22/22 05:21 Labs: Laboratory Results - last 24 hr 03/21/22 17:56: POC Glucose 337 H 03/21/22 18:00: WBC 6.0, RBC 3.88 L, Hgb 13.2, Hct 38.3 L, MCV 98.7 H, MCH 34.0 H, MCHC 34.5, RDW Std Deviation 49.6 H, RDW Coeff of Kalpana 13.6, Plt Count 144 L, MPV 11.1, Immature Gran % (Auto) 0.500, Neut % (Auto) 75.0 H, Lymph % (Auto) 10.0 L, Harney % (Auto) 8.1, Eos % (Auto) 5.6 H, Baso % (Auto) 0.8, Absolute Neuts (auto) 4.5, Absolute Lymphs (auto) 0.60 L, Nucleated RBC % 0, Differential Comm ent SCANNED 03/21/22 18:00: Sodium 142, Potassium 3.2 L, Chloride 98, Carbon Dioxide 32.0, Anion Gap 12, BUN 4 L, Creatinine 1.11, Estim Creat Clear Calc 68.96, Est GFR (MDRD) Af Amer 87, Est GFR (MDRD) Non-Af 72, BUN/Creatinine Ratio 3.6 L, Glucose 294 H, Calcium 8.3 L 03/21/22 18:00: Ethyl Alcohol < 3.0 03/21/22 18:00: Total Bilirubin 1.40 H, Direct Bilirubin 0.55 H, AST 334 H, ALT 108 H, Alkaline Phosphatase 144 H, Total Protein 5.8 L, Albumin 2.8 L, Globulin 3.0 03/21/22 18:00: Phosphorus 3.6, Magnesium 1.2 L 03/21/22 21:15: Urine Opiates Screen NEGATIVE, Urine Methadone Screen NEGATIVE, Ur Barbiturates Screen NEGATIVE, Ur Phencyclidine Scrn NEGATIVE, Ur Amphetamines Screen NEGATIVE, MDMA (Ecstasy) Screen NEGATIVE, U Benzodiazepines Scrn NEGATIVE, Urine Cocaine Screen NEGATIVE, U Cannabinoids Screen NEGATIVE, Ur Drug Screen Comment 03/21/22 21:23: POC Glucose 281 H 03/22/22 05:21: Sodium 140, Potassium 2.9 L, Chloride 101, Carbon Dioxide 32.0, Anion Gap 7, BUN 3 L, Creatinine 0.86, Estim Creat Clear Calc 81.50, Est GFR (MDRD) Af Amer 116, Est GFR (MDRD) Non-Af 96, BUN/Creatinine Ratio 3.5 L, Glucose 302 H, Calcium 7.3 L, Total Bilirubin 1.10 H, AST 254 H, ALT 76 H, Alkaline Phosphatase 104, Total Protein 4.4 L, Albumin 2.0 L, Globulin 2.4, Albumin/Globulin Ratio 0.8 L 03/22/22 05:21: Hemoglobin A1c 8.3 H 03/22/22 08:06: POC Glucose 267 H Physical Exam Const alert, oriented x3, no apparent distress and healthy appearing General Appearance: cooperative, well kempt and well developed Orientation / Consciousness: awake, oriented to person, oriented to place and oriented to time HEENT normocephalic and moist oral mucous membranes Eyes PERRL, EOMs intact bilaterally and conjunctivae normal Neck supple, no JVD, thyroid normal and no carotid bruits General: trachea midline Resp normal respiratory effort, no retractions, no use of accessory muscles and clear to auscultation bilaterally Auscultation: Negative for rales, rhonchi or wheezes Cardio regular rate, regular rhythm, no rub and no gallops Cardio Narrative: Patient is a 2 or 6 systolic murmur noted at the left sternal border and apex GI normal to inspection, nondistended, normoactive bowel sounds, soft to palpation, non-tender and non-distended Extremity normal to inspection and no clubbing, cyanosis or edema Skin no rashes or lesions noted General Skin Exam: no breakdown Neuro oriented x3, CN's II-XII intact bilaterally, no focal motor deficits and no sensory deficits noted Sensorium / Orientation: awake and alert Speech: speech normal Psych affect normal Assessment & Plan Assessment/Plan (1) Alcohol abuse: PLAN: Plan 1. Acute alcohol withdrawal-patient will remain on his present medications, he told me that he does not want to do an inpatient detox program because he has to take care of his father, patient will be seen by addiction vp digital marketing social media and crm #2 hypokalemia-patient was given oral potassium, labs will be rechecked #3 hypomagnesemia-magnesium will be rechecked, he received IV magnesium today #4 type 2 diabetes-blood sugars will be monitored, patient is on sliding scale insulin as well as his home insulin #5 essential hypertension-patient will remain on amlodipine #6 chronic alcoholism-complicates care, medical course, recovery, and prognosis Total clinical time spent by myself addressing the patient's medical issues, reviewing all the data, and collaborating with patient care team: 35 minutes Charges/Coding Visit Charges Inpatient E&M: 46021 Subs Hosp L2
[2022-03-22] MEDS: Potassium Chloride Oral Tablet 10 MEQ 40 MEQ PO (11:40)
[2022-03-22 11:55] LABS: Bedside Glucose 111 mg/dL (74-106)
[2022-03-22 16:00] VITALS: BP 106/84; PULSE 59; RESP 18; TEMP 37.1; O2SAT 98
[2022-03-22] MEDS: Acetaminophen 325 MG Tablet 650 MG PO (17:29)
[2022-03-22 18:00] LABS: Bedside Glucose 204 mg/dL (74-106)
[2022-03-22 20:08] VITALS: BP 101/73; PULSE 88; RESP 16; TEMP 36.8; O2SAT 98
[2022-03-22] MEDS: Atorvastatin Calcium 10 MG Tablet PO (21:10)
[2022-03-22 21:30] LABS: Bedside Glucose 148 mg/dL (74-106)
[2022-03-23 00:23] VITALS: BP 109/75; PULSE 61; RESP 16; TEMP 36.6; O2SAT 98
[2022-03-23] MEDS: Phenobarbital 32.4 MG Tablet 64.8 MG PO ×5 (00:26→15:54)
[2022-03-23 04:42] VITALS: BP 138/98; PULSE 65; RESP 16; TEMP 36.5; O2SAT 97
[2022-03-23] MEDS: Insulin Lispro 100 UNIT/ML INSULN.PEN SC ×5 (07:55→21:35)
[2022-03-23] MEDS: Folic Acid 1 MG Tablet PO (07:55)
[2022-03-23] MEDS: Thiamine Hydrochloride 100 MG Tablet PO (07:57)
[2022-03-23 08:16] VITALS: O2SAT 95
[2022-03-23 08:20] LABS: Bedside Glucose 254 mg/dL (74-106)
[2022-03-23 09:01] VITALS: BP 108/75; PULSE 77; RESP 18; TEMP 36.6; O2SAT 96
--- NOTE | 2022-03-23 09:49 | CASEMGMT ---
Social Work SW checked with pt to see if Medicaid application given to pt in ED has been completed. Pt sleeping, medicaid logan on bedside table, not finished. MAEGAN Echols
[2022-03-23] MEDS: Pantoprazole Sodium 40 MG Tablet PO (11:28)
[2022-03-23] MEDS: amLODIPine 5 MG Tablet PO (11:28)
[2022-03-23] MEDS: Insulin Glargine-YFGN 100 UNIT/ML Pen 8 UNIT SC (11:29)
[2022-03-23] MEDS: Acetaminophen 325 MG Tablet 650 MG PO (11:32)
[2022-03-23] MEDS: Glucerna Shake 120 ML LIQUID PO ×3 (11:33→21:33)
[2022-03-23] MEDS: Potassium Chloride Oral Tablet 10 MEQ 40 MEQ PO (11:33)
[2022-03-23 11:55] LABS: Bedside Glucose 139 mg/dL (74-106)
[2022-03-23 16:00] VITALS: BP 126/80; PULSE 83; RESP 18; TEMP 36.6; O2SAT 98
[2022-03-23 16:15] LABS: Bedside Glucose 138 mg/dL (74-106)
--- NOTE | 2022-03-23 17:43 | PCM.PN.HOSP ---
Reason for Visit Reason for Visit: Diagnoses Alcohol abuse, uncomplicated (03/21/22) Alcohol use, unspecified with withdrawal, unspecified (03/21/22) Subjective Subjective Patient was seen and examined today, he has no signs of alcohol withdrawal at this time, he asked if he could be discharged tomorrow to go home, I told him I would reevaluate him tomorrow. Objective Data Objective Data Vital Signs: Vital Signs Temp Pulse Resp BP Pulse Ox O2 Del Method 97.9 F 83 18 126/80 H 98 Room Air 03/23/22 16:00 03/23/22 16:00 03/23/22 16:00 03/23/22 16:00 03/23/22 16:00 03/23/22 16:00 Oxygen Delivery Method Room Air Weight: 62.3 kg Body Mass Index (BMI) 19.1 Intake & Output: Intake and Output for Last 24 Hours 03/21/22 03/22/22 03/23/22 23:59 23:59 23:59 Intake Total 900 / 900 2620.5 / 2620.5 550 / 550 Balance 900 / 900 2620.5 / 2620.5 550 / 550 Medical Nutrition Assessment Dietitian: Malnutrition Criteria Met Start: 03/22/22 10:22 Freq: Status: Active Protocol: Document 03/22/22 10:22 (Rec: 03/22/22 10:22 [id number]) Nutrition Malnutrition Evidence of Malnutrition Exists Yes Malnutrition (moderate): Chronic Evidenced By Suboptimal Energy Intake ( Moderate),Physical Changes ( Mild) Clinical Problem Chronic Disease or Condition Related Malnutrition Etiology moderate, chronic malnutrition related to inadequate protein /calorie intake d/t alcohol abuse Signs/Symptoms as evidenced by estimated PO intake meeting <75% of estimated energy needs > 3 months; Mild muscle wasting/ fat loss evident per physical exam in orbital, clavicle, acromion, and temporal areas; BMI 19.2 Status Active Problem Recommendation Dietitian Recommendations/Changes cardiac, carbohydrate controlled diet; will increase to 2000 calories/day. Lab / Micro Data Result Diagrams: 03/21/22 18:00 03/22/22 05:21 Labs: Laboratory Results - last 24 hr 03/22/22 17:11: POC Glucose 204 H 03/22/22 21:09: POC Glucose 148 H 03/23/22 07:51: POC Glucose 254 H 03/23/22 11:25: POC Glucose 139 H 03/23/22 15:51: POC Glucose 138 H Physical Exam Const alert, oriented x3, no apparent distress and healthy appearing General Appearance: cooperative, well kempt and well developed Orientation / Consciousness: awake, oriented to person, oriented to place and oriented to time HEENT normocephalic and moist oral mucous membranes Eyes PERRL, EOMs intact bilaterally and conjunctivae normal Neck supple, no JVD and thyroid normal General: trachea midline Resp normal respiratory effort, no retractions, no use of accessory muscles and clear to auscultation bilaterally Auscultation: Negative for rales, rhonchi or wheezes Cardio regular rate, regular rhythm, S1 normal heart sound, S2 normal heart sound, no murmurs, no rub and no gallops GI normal to inspection, nondistended, normoactive bowel sounds, soft to palpation, non-tender and non-distended Extremity no clubbing, cyanosis or edema Skin no rashes or lesions noted General Skin Exam: no breakdown Neuro oriented x3, CN's II-XII intact bilaterally, no focal motor deficits and no sensory deficits noted Sensorium / Orientation: awake and alert Speech: speech normal Psych affect normal Assessment & Plan Assessment/Plan (1) Alcohol withdrawal: (2) Alcohol abuse: PLAN: Plan 1. Acute alcohol withdrawal-I have elected to decrease the patient's phenobarb dosage, he will be reevaluated tomorrow for possible discharge #2 hypokalemia-I will recheck the patient's BMP today #3 hypomagnesemia-magnesium will be rechecked, he received IV magnesium #4 type 2 diabetes-blood sugars will be monitored, patient is on sliding scale insulin as well as his home insulin #5 essential hypertension-patient will remain on amlodipine #6 chronic alcoholism-complicates care, medical course, recovery, and prognosis Total clinical time spent by myself addressing the patient's medical issues, reviewing all the data, and collaborating with patient care team: 36 minutes Charges/Coding Visit Charges Inpatient E&M: 73969 Subs Hosp L2
[2022-03-23 19:24] LABS: Anion Gap 3 (5-15); BUN 7 mg/dL (7-18); BUN/Creat Ratio 8.1 RATIO (10-20); Calcium,Total 7.7 mg/dL (8.5-10.1); Chloride 107 mmol/L (98-107); Creatinine, Serum 0.87 mg/dL (0.70-1.30); EST Glomerular Filtration Rate 96 mL/min (>60); Est Glom Filt Rate - Afr Amer 116 mL/min (>60); Estimated Creatinine Clearance 80.56 ml/min; Glucose 149 mg/dL (74-106); Magnesium 1.8 mg/dL (1.6-2.6); Potassium 4.9 mmol/L (3.5-5.1); Sodium Level 140 mmol/L (136-145)
[2022-03-23 21:28] VITALS: BP 128/90; PULSE 74; RESP 16; TEMP 36.5; O2SAT 99
[2022-03-23] MEDS: Phenobarbital 32.4 MG Tablet PO (21:33)
[2022-03-23] MEDS: traZODone 100 MG Tablet PO (21:33)
[2022-03-23] MEDS: Atorvastatin Calcium 10 MG Tablet PO (21:34)
[2022-03-23 22:00] LABS: Bedside Glucose 245 mg/dL (74-106)
[2022-03-24 05:57] VITALS: BP 126/91; PULSE 67; RESP 16; TEMP 36.6; O2SAT 97
[2022-03-24] MEDS: Phenobarbital 32.4 MG Tablet PO (06:07)
[2022-03-24] MEDS: Acetaminophen 325 MG Tablet 650 MG PO (06:07)
[2022-03-24 06:31] LABS: Bedside Glucose 223 mg/dL (74-106)
[2022-03-24 06:54] VITALS: O2SAT 97
[2022-03-24 08:25] VITALS: BP 127/76; PULSE 66; RESP 16; TEMP 36.4; O2SAT 95
[2022-03-24] MEDS: amLODIPine 5 MG Tablet PO (10:07)
[2022-03-24] MEDS: Folic Acid 1 MG Tablet PO (10:07)
[2022-03-24] MEDS: Thiamine Hydrochloride 100 MG Tablet PO (10:07)
[2022-03-24] MEDS: Pantoprazole Sodium 40 MG Tablet PO (10:08)
[2022-03-24] MEDS: Insulin Lispro 100 UNIT/ML INSULN.PEN SC ×2 (10:08→10:09)
[2022-03-24] MEDS: Potassium Chloride Oral Tablet 10 MEQ 40 MEQ PO (10:08)
[2022-03-24] MEDS: Insulin Glargine-YFGN 100 UNIT/ML Pen 8 UNIT SC (10:10)
[2022-03-24] MEDS: Glucerna Shake 120 ML LIQUID PO (10:13)
--- NOTE | 2022-03-24 11:52 | PCM.DC ---
Discharge Instructions Diet Discharge Diet: 1800 Calorie Control Diet Activity Discharge Activity: Return to Normal Activity Weight Bearing Status: Full weight bearing Follow Up Care Test Results: Test results from this visit will be discussed in further detail at your follow-up appointment, if applicable. Discharge Plan Admission Admit Date/Time: 03/21/22 18:05 Primary Reason for Your Visit: alcohol detox Attending Provider: Asif Dutton Primary Care Provider: Dk Pathak NP Consulting Providers: Iman Aguayo Discharge Orders/Prescriptions Prescriptions: Continued omeprazole 40 mg capsule,delayed release(DR/EC) 40 mg PO DAILY hydrochlorothiazide 12.5 mg tablet 12.5 mg PO DAILY atorvastatin 10 mg tablet 10 mg PO DAILY amlodipine 5 mg tablet 5 mg PO DAILY ramipril 10 mg capsule 10 mg PO BID hydralazine 25 mg tablet 25 mg PO TID metformin 500 MG tablet 500 mg PO DAILY Farxiga 10 mg Tablet 10 mg PO DAILY Hold Instructions: until you speak with your diabetic clinic or PCP. gabapentin 300 mg Capsule 300 mg PO Q8H PRN PRN (Reason: neruropathic pain) Qty: 30 0RF Rx Instructions: for neuropathy from diabetes multivitamin Tablet 1 tab PO DAILY Rx Instructions: over the counter potassium chloride 10 mEq tablet,ER particles/crystals 20 meq PO DAILY insulin detemir U-100 100 unit/mL (3 mL) Insulin Pen 8 unit SUBCUT DAILY Qty: 3 0RF insulin lispro [Humalog KwikPen Insulin] 100 unit/mL insulin pen 5 unit subcut TIDAC Referrals / Follow Up: Dk Pathak NP, MEDICAL RECORD TRANSCRIBER-C [Primary Care Provider] - Disposition Disposition (needs filled in before D/C Order can be placed): Home, Self Care
--- NOTE | 2022-03-24 12:16 | PHA.DC.MR ---
Pharmacy Service has performed discharge medication reconciliation for this patient. The patient's discharge medication list was reviewed for discrepancies and discrepancies were resolved. Home Medications omeprazole 40 mg capsule,delayed release 40 mg PO DAILY reflux 06/10/18 metformin 500 mg tablet 500 mg PO DAILY diabetes 01/21/19 amlodipine 5 mg tablet 5 mg PO DAILY HEART 10/17/20 atorvastatin 10 mg tablet 10 mg PO DAILY CHOLESTEROL 10/17/20 hydralazine 25 mg tablet 25 mg PO TID BP 10/17/20 hydrochlorothiazide 12.5 mg tablet 12.5 mg PO DAILY BP 10/17/20 ramipril 10 mg capsule 10 mg PO BID BP 10/17/20 dapagliflozin 10 mg tablet (Farxiga) 10 mg PO DAILY DIABETES 09/30/21 gabapentin 300 mg capsule 300 mg PO Q8H PRN PRN neruropathic pain #30 caps 11/08/21 multivitamin 1 tab PO DAILY supplement 11/11/21 potassium chloride 10 mEq tablet,extended release(part/cryst) 20 meq PO DAILY supplement 11/11/21 insulin detemir U-100 100 unit/mL (3 mL) subcutaneous pen 8 unit (0.08 mL) subcut DAILY DM #3 mL 02/04/22 insulin lispro 100 unit/mL subcutaneous pen (Humalog KwikPen (U-100) Insulin) 5 unit subcut TIDAC dm 03/21/22
--- NOTE | 2022-03-24 12:52 | ADDICTION ---
This investment underwriter met with PT to conduct ASAM, MSE, AUDIT, DUDIT assessments and to plan for d/c. PT A+Ox4 and participated actively. All assessments completed and placed in PT's chart. PT plans to f/u with follow-up treatment services, however he wanted to discuss it with his family upon d/c. This worker offered resources. PT did not indicate a need for transportation post d/c from [facility].
--- NOTE | 2022-04-06 09:41 | PCM.DC.SUM ---
Providers Date of Admission: 03/21/22 Date of Discharge: 03/24/22 Primary Care Physician: Dk Pathak, SUSAN-C Reason For Visit: ACUTE ETOH WITHDRAWAL Diagnosis Discharge Diagnosis (1) Alcohol withdrawal: Status: Inactive Code(s): F10.939 - Alcohol use, unspecified with withdrawal, unspecified (2) Alcohol abuse: Status: Acute Code(s): F10.10 - Alcohol abuse, uncomplicated Plan 1. Acute alcohol withdrawal-I have elected to decrease the patient's phenobarb dosage, he will be reevaluated tomorrow for possible discharge #2 hypokalemia-I will recheck the patient's BMP today #3 hypomagnesemia-magnesium will be rechecked, he received IV magnesium #4 type 2 diabetes-blood sugars will be monitored, patient is on sliding scale insulin as well as his home insulin #5 essential hypertension-patient will remain on amlodipine #6 chronic alcoholism-complicates care, medical course, recovery, and prognosis #7 moderate chronic malnutrition related to inadequate protein and caloric intake secondary to alcohol abuse as evidenced by estimated p.o. intake meeting less than 75% of estimated energy needs greater than 3 months, mild muscle wasting/fat loss evident per physical exam and orbital, clavicular, acromion, and temporal areas. Diet was increased to 2000-calorie cardiac carbohydrate controlled diet Total clinical time spent by myself addressing the patient's medical issues, reviewing all the data, and collaborating with patient care team: 36 minutes Medications at Discharge Home Medications omeprazole 40 mg capsule,delayed release 40 mg PO DAILY reflux 06/10/18 metformin 500 mg tablet 500 mg PO DAILY diabetes 01/21/19 amlodipine 5 mg tablet 5 mg PO DAILY HEART 10/17/20 atorvastatin 10 mg tablet 10 mg PO DAILY CHOLESTEROL 10/17/20 hydralazine 25 mg tablet 25 mg PO TID BP 10/17/20 hydrochlorothiazide 12.5 mg tablet 12.5 mg PO DAILY BP 10/17/20 ramipril 10 mg capsule 10 mg PO BID BP 10/17/20 dapagliflozin 10 mg tablet (Farxiga) 10 mg PO DAILY DIABETES 09/30/21 gabapentin 300 mg capsule 300 mg PO Q8H PRN PRN neruropathic pain #30 caps 11/08/21 multivitamin 1 tab PO DAILY supplement 11/11/21 potassium chloride 10 mEq tablet,extended release(part/cryst) 20 meq PO DAILY supplement 11/11/21 insulin detemir U-100 100 unit/mL (3 mL) subcutaneous pen 8 unit (0.08 mL) subcut DAILY DM #3 mL 02/04/22 insulin lispro 100 unit/mL subcutaneous pen (Humalog KwikPen (U-100) Insulin) 5 unit subcut TIDAC dm 03/21/22 Hospital Course Operations None Procedures None Summary of Care Provided Minutes Spent on Discharge: 32 Hospital Course: This 61-year-old white male was seen in the emergency room at [facility] requesting services for alcohol detox, lab drawn in the emergency room showed the patient have a low potassium at 3.2, glucose was elevated at 294, liver enzymes were elevated with an AST of 334, ALT of 108, total bilirubin of 1.4, and alkaline phosphatase of 144. Patient toxicology screen was negative, alcohol level was below 3. Patient was admitted to [place] [address], orders were entered using the alcohol detox order set, patient was given supplemental potassium as well as magnesium to correct his abnormal labs. He was seen in consultation by nutritional services and they gave recommendations concerning his malnutrition. He was seen by addiction social media sr strategy manager and a follow-up plan for outpatient detox was completed. Patient did not want to do an inpatient alcohol detox program. On 03/24/2022, patient was seen and examined: On examination he appeared in good health and spirits. Vital signs as documented. Skin warm and dry and without overt rashes. Neck without JVD, neck was supple, trachea midline, thyroid was normal. Lungs clear bilaterally, normal air movement was noted. Heart exam notable for regular rhythm, normal sounds and absence of murmurs, rubs or gallops. Abdomen unremarkable and without evidence of organomegaly, masses, or abdominal aortic enlargement. Bowel sounds are present, abdomen is not distended. Extremities nonedematous, no cyanosis was noted, no clubbing was noted. Neuro: Cranial nerves II through XII are grossly intact, no focal motor deficits were noted, sensation to light touch and pinprick intact, motor exam 5/5 throughout. Psych: Patient is alert and oriented x3, he does not appear anxious or depressed, he does not appear agitated. Patient was discharged in stable condition on 03/24/2022. Weight / BMI Weight Weight: 62.3 kg Body Mass Index (BMI) 19.1 ABG / Lab / Microbiology Data Result Diagrams: 03/21/22 18:00 03/23/22 18:50 D/C Instructions Discharge Diet: 1800 Calorie Control Diet Weight Bearing Status: Full weight bearing Meaningful Use Info Meaningful Use Diagnoses (Choose all that apply): None applicable Discharge Plan Admission Admit Date/Time: 03/21/22 18:05 Primary Reason for Your Visit: alcohol detox Attending Provider: Asif Dutton Primary Care Provider: Dk Pathak NP Consulting Providers: Iman Aguayo Discharge Orders/Prescriptions Prescriptions: Continued omeprazole 40 mg capsule,delayed release(DR/EC) 40 mg PO DAILY hydrochlorothiazide 12.5 mg tablet 12.5 mg PO DAILY atorvastatin 10 mg tablet 10 mg PO DAILY amlodipine 5 mg tablet 5 mg PO DAILY ramipril 10 mg capsule 10 mg PO BID hydralazine 25 mg tablet 25 mg PO TID metformin 500 MG tablet 500 mg PO DAILY Farxiga 10 mg Tablet 10 mg PO DAILY Hold Instructions: until you speak with your diabetic clinic or PCP. gabapentin 300 mg Capsule 300 mg PO Q8H PRN PRN (Reason: neruropathic pain) Qty: 30 0RF Rx Instructions: for neuropathy from diabetes multivitamin Tablet 1 tab PO DAILY Rx Instructions: over the counter potassium chloride 10 mEq tablet,ER particles/crystals 20 meq PO DAILY insulin detemir U-100 100 unit/mL (3 mL) Insulin Pen 8 unit SUBCUT DAILY Qty: 3 0RF insulin lispro [Humalog KwikPen Insulin] 100 unit/mL insulin pen 5 unit subcut TIDAC Referrals / Follow Up: Dk Pathak NP, CAPITAL PROJECT ENGINEER-C [Primary Care Provider] - Disposition Disposition (needs filled in before D/C Order can be placed): Home, Self Care Charges/Coding Visit Charges Inpatient E&M: 02094 Disch Hosp >30min
== END 2022-03-24 13:19 | disposition home or self-care (01) | DRG 897 ==
LOC: ED 18:05 → MS3 18:42
PROVIDERS: Student in an Organized Health Care Education/Training Program; Admitting Provider Family Medicine; Emergency Provider Emergency Medicine; PCP Nurse Practitioner Family; Visit Provider Internal Medicine
DX: F10.239 Alcohol dependence with withdrawal, unspecified (principal); E44.0 Moderate protein-calorie malnutrition; Z68.1 Body mass index [BMI] 19.9 or less, adult; E11.65 Type 2 diabetes mellitus with hyperglycemia; D53.9 Nutritional anemia, unspecified; E78.00 Pure hypercholesterolemia, unspecified; E83.42 Hypomagnesemia; Z79.4 Long term (current) use of insulin; E86.0 Dehydration; I10 Essential (primary) hypertension; K21.9 Gastro-esophageal reflux disease without esophagitis; F17.210 Nicotine dependence, cigarettes, uncomplicated; E87.6 Hypokalemia; Z95.0 Presence of cardiac pacemaker; Z79.899 Other long term (current) drug therapy; Z79.84 Long term (current) use of oral hypoglycemic drugs
CPT/HCPCS: 36415; 80048; 80053; 80076; 80307; 82077; 82962; 83036; 83735; 84100; 85025; 97802; 99284; J7040; J7050; J7120; A4216; J2405

== ENCOUNTER 2022-07-20 19:09 | Emergency (ER) | payer MEDICAID, SELFPAY ==
[2022-07-20 19:10] VITALS: BP 144/95; PULSE 85; RESP 18; TEMP 35.9; O2SAT 93; BMI 21.5
--- NOTE | 2022-07-20 19:25 | EKG12_ITS ---
Test Reason : Blood Pressure : / mmHG Vent. Rate : 087 BPM Atrial Rate : 087 BPM P-R Int : 204 ms QRS Dur : 122 ms QT Int : 420 ms P-R-T Axes : 000 -41 078 degrees QTc Int : 505 ms Sinus rhythm with frequent Premature ventricular complexes Left axis deviation Right bundle branch block Abnormal ECG Confirmed by ZHAO FRANCISCO, KETTY ([id number]), senior technical editor MAILE BALDWIN ([id number]) on 07/22/2022 11:20:12 AM Referred By: Confirmed By:KETTY CHURCHILL MD
[2022-07-20] MEDS: 0.9% Normal Saline 1,000 ML 999 ML IV ×2 (19:35→20:07)
[2022-07-20 19:38] LABS: Bacteria 0 SEEN /hpf (None Seen); Mucous, Urine 0 SEEN /hpf (<or=2+); Red Blood Cells-Urine 0 SEEN /hpf (0-5); Squamous Epithelial Cells - UA 0 SEEN /hpf (0-5); White Blood Cells 0 SEEN /hpf (0-5)
[2022-07-20 19:39] LABS: Color, Urine Straw (Yellow); Glucose, Dipstick 1000 mg/dl (Normal); Ketone-Dipstick Negative (Negative); Leukocyte Esterase-Dipstick Negative /ul (Negative); Nitrite-Dipstick Negative (Negative); Occult Blood-Urine Negative /ul (Negative); Protein-Dipstick Negative (Negative); Urine Bilirubin Dipstick Negative (Negative); Urine Clarity Clear (Clear); Urine Urobilinogen Normal (Normal)
[2022-07-20 19:40] LABS: Absolute Lymphocyte Count 1.83 X10^3/uL (0.83-4.51); Absolute Neutrophil Count 2.1 X10^3/uL (2.0-7.7); Basophil% 2.1 % (0-1); Eosinophils% 4.2 % (0-5); Hematocrit 37.7 % (40-54); Hemoglobin 12.4 g/dL (13.0-16.5); Lymphocyte # 1.83 X10^3/ul (0.83-4.51); Lymphocyte % 38.6 % (19-41); Mean Corp Hgb Conc 32.9 g/dL (32-36); Mean Corpuscular Hgb 34.2 pg (27.0-32.0); Mean Corpuscular Volume 103.9 fL (80-94); Monocyte# 0.51 X10^3/uL; Monocyte% 10.8 % (0-10); NRBC Flagged by Analyzer 0 % (0-5); Neutrophil # 2.08 X10^3/uL (2.7-7.7); Neutrophil % 43.9 % (47-70); Platelet Count 241 K/mm3 (150-450); RBC Distribution Width CV 14.6 % (11.6-14.6); RBC Distribution Width SD 56.5 fl (35.1-43.9); Red Blood Count 3.63 M/mm3 (4.6-6.2); White Blood Count 4.7 K/mm3 (4.4-11.0)
[2022-07-20 19:48] LABS: Bedside Glucose 349 mg/dL (74-106)
[2022-07-20 19:58] LABS: AST(SGOT) 50 U/L (15-37); Alanine Aminotransfer ALT/SGPT 30 U/L (16-61); Albumin, Serum 3.1 g/dL (3.2-5.0); Alkaline Phosphatase 120 U/L (45-117); Anion Gap 6 (5-15); BUN 8 mg/dL (7-18); BUN/Creat Ratio 7.5 RATIO (10-20); Calcium,Total 8.3 mg/dL (8.5-10.1); Chloride 97 mmol/L (98-107); Creatinine, Serum 1.06 mg/dL (0.70-1.30); EST Glomerular Filtration Rate 76 mL/min (>60); Est Glom Filt Rate - Afr Amer 92 mL/min (>60); Estimated Creatinine Clearance 74.19 ml/min; Globulin 3.2 g/dL (2.2-4.2); Glucose 381 mg/dL (74-106); Magnesium 2.3 mg/dL (1.6-2.6); Protein, Total 6.3 g/dL (6.4-8.2); Sodium Level 144 mmol/L (136-145)
--- NOTE | 2022-07-20 20:09 | EDS_ITS ---
HPI History of Present Illness Chief Complaint: Hyperglycemia Narrative Narrative: 61-year-old male with history of EtOH abuse and diabetes presenting with EtOH intoxication and high blood sugars. He states he feels unwell today because of this. He states he only had 2 beers today. He denies fever or chills. He denies chest pain or shortness of breath. PFSH PFSH Medical History Acute dehydration Acute hypokalemia Admitted to alcohol detoxification center Adrenal nodule Alcohol dependence Alcohol withdrawal Alcoholism Alcoholism Aortic aneurysm Ascending aortic dissection (~2005) Cardiac pacemaker in situ (~06/2016) Desire for detoxification Diabetes mellitus, type II Essential hypertension ETOH abuse Hiatal hernia History of diabetes mellitus HTN (hypertension) Hx of hypercholesterolemia Left carotid bruit Non-sustained ventricular tachycardia Pacemaker Pleuritic chest pain Pure hypercholesterolemia Right bundle branch block (RBBB) Shortness of breath Sick sinus syndrome Smoker Substance abuse SVT (supraventricular tachycardia) Thoracic aortic aneurysm Tobacco use Home Medications omeprazole 40 mg capsule,delayed release 40 mg PO DAILY reflux 06/10/18 [History Last Taken 11/11/21] metformin 500 mg tablet 500 mg PO DAILY diabetes 01/21/19 [History Last Taken 11/11/21] amlodipine 5 mg tablet 5 mg PO DAILY HEART 10/17/20 [History Last Taken 11/11] atorvastatin 10 mg tablet 10 mg PO DAILY CHOLESTEROL 10/17/20 [History Last Taken 11/11/21] hydralazine 25 mg tablet 25 mg PO TID BP 10/17/20 [History Last Taken 11/11/21] hydrochlorothiazide 12.5 mg tablet 12.5 mg PO DAILY BP 10/17/20 [History Last Taken 11/11/21] ramipril 10 mg capsule 10 mg PO BID BP 10/17/20 [History Last Taken 11/11/21] dapagliflozin propanediol 10 mg tablet (Farxiga) 10 mg PO DAILY DIABETES 09/30/21 [History Last Taken 11/11/21] gabapentin 300 mg capsule 300 mg PO Q8H PRN PRN neruropathic pain #30 caps 11/08/21 [Rx Last Taken 11/11/21] multivitamin 1 tab PO DAILY supplement 11/11/21 [History Last Taken 11/10/21] potassium chloride 10 mEq tablet,extended release(part/cryst) 20 meq PO DAILY supplement 11/11/21 [History Last Taken Unknown] insulin detemir U-100 100 unit/mL (3 mL) subcutaneous pen 8 unit (0.08 mL) subcut DAILY DM #3 mL 02/04/22 [Rx Last Taken 11/11/21] insulin lispro 100 unit/mL subcutaneous pen (Humalog KwikPen (U-100) Insulin) 5 unit subcut TIDAC dm 03/21/22 [History Last Taken Unknown] Allergy/AdvReac Type Severity Reaction Status Date / Time No Known Allergies Allergy Verified 03/21/22 19:57 Family History Father CAD (coronary artery disease) Mother Dementia Surgical History H/O aortic valve replacement H/O cardiac catheterization History of aortic aneurysm repair (~2017) History of aortic valve replacement with bioprosthetic valve (~2016) History of cataract surgery History of hernia repair Social History (Updated 03/21/22 @ 18:[address] Iman Aguayo MD) Smoking Status: Current every day smoker tobacco type: cigarettes alcohol intake: current alcohol intake frequency: 0-2 drinks per day details: Reports currently ~ 2 tall boys daily. substance use type: former substance user caffeine: Yes Type: coffee Number of servings: 3 EXAM Physical Exam Const Vital Signs: 07/20/22 19:10 07/20/22 19:24 Temperature 96.7 F L Temperature Source Temporal Pulse Rate 85 Respiratory Rate 18 Respiratory Pattern Normal Blood Pressure 144/95 H Blood Pressure Mean 111 Pulse Ox 93 Oxygen Delivery Method Room Air MDM MDM MDM Narrative Medical decision making narrative: 61-year-old male presenting with hyperglycemia. He admits to drinking only 2 beers today. He appears intoxicated. Patient is a type II diabetic. He is a history of hypoglycemic episodes. Obtain a CBC to assess white blood cell count which is normal. Hemoglobin hematocrit are stable. Platelets within normal limits. Renal function appears normal and glucose is elevated 381 without significant anion gap. Acetone negative. Potassium slight low at 3.0. LFTs unremarkable with exception of an AST of 50. EtOH 292. Patient received 2 L of IV fluids. EKG on my interpretation showed a normal sinus rhythm with ventricular rate of 87 bpm without sign of ischemic change there is PVCs noted. Right bundle branch block noted. Patient given 40 mill equivalents of potassium p.o. We will recheck his blood sugar and give insulin. He does not want to be admitted for detox. Patient's blood sugar now down to 190. He feels improved. He is trying to call for a sober ride from his cousin. Impression: 1. EtOH intoxication 2. Hyperglycemia 3. Hypokalemia Lab Data Attestation: I reviewed the patient's lab results. Labs: Laboratory Results - last 24 hr 07/20/22 07/20/22 07/20/22 19:20 19:20 19:20 WBC 4.7 RBC 3.63 L Hgb 12.4 L Hct 37.7 L MCV 103.9 H MCH 34.2 H MCHC 32.9 RDW Std Deviation 56.5 H RDW Coeff of Kalpana 14.6 Plt Count 241 MPV 10.0 Immature Gran % (Auto) 0.400 Neut % (Auto) 43.9 L Lymph % (Auto) 38.6 Colbert % (Auto) 10.8 H Eos % (Auto) 4.2 Baso % (Auto) 2.1 H Absolute Neuts (auto) 2.1 Absolute Lymphs (auto) 1.83 Nucleated RBC % 0 Sodium 144 Potassium 3.0 L Chloride 97 L Carbon Dioxide 41.0 H Anion Gap 6 BUN 8 Creatinine 1.06 Estim Creat Clear Calc 74.19 Est GFR (MDRD) Af Amer 92 Est GFR (MDRD) Non-Af 76 BUN/Creatinine Ratio 7.5 L Glucose 381 H Calcium 8.3 L Magnesium 2.3 Total Bilirubin 0.20 AST 50 H ALT 30 Alkaline Phosphatase 120 H Total Protein 6.3 L Albumin 3.1 L Globulin 3.2 Albumin/Globulin Ratio 1.0 Urine Color Urine Clarity Urine pH Ur Specific [place] Urine Protein Urine Glucose (UA) Urine Ketones Urine Occult Blood Urine Nitrite Urine Bilirubin Urine Urobilinogen Ur Leukocyte Esterase Urine RBC Urine WBC Ur Squamous Epith Cells Urine Bacteria Urine Mucus Ethyl Alcohol Acetone Level NEGATIVE POC Glucose 07/20/22 07/20/22 07/20/22 19:20 19:21 19:25 WBC RBC Hgb Hct MCV MCH MCHC RDW Std Deviation RDW Coeff of Kalpana Plt Count MPV Immature Gran % (Auto) Neut % (Auto) Lymph % (Auto) Colbert % (Auto) Eos % (Auto) Baso % (Auto) Absolute Neuts (auto) Absolute Lymphs (auto) Nucleated RBC % Sodium Potassium Chloride Carbon Dioxide Anion Gap BUN Creatinine Estim Creat Clear Calc Est GFR (MDRD) Af Amer Est GFR (MDRD) Non-Af BUN/Creatinine Ratio Glucose Calcium Magnesium Total Bilirubin AST ALT Alkaline Phosphatase Total Protein Albumin Globulin Albumin/Globulin Ratio Urine Color Straw Urine Clarity Clear Urine pH 8.0 Ur Specific [place] 1.010 Urine Protein Negative Urine Glucose (UA) 1000 H Urine Ketones Negative Urine Occult Blood Negative Urine Nitrite Negative Urine Bilirubin Negative Urine Urobilinogen Normal Ur Leukocyte Esterase Negative Urine RBC 0 SEEN Urine WBC 0 SEEN Ur Squamous Epith Cells 0 SEEN Urine Bacteria 0 SEEN Urine Mucus 0 SEEN Ethyl Alcohol 292.0 Acetone Level POC Glucose 349 H Discharge Plan Triage Chief Complaint: Hyperglycemia ED Provider: Sinan Abarca Dx/Rx/DC Orders Prescriptions: No Action omeprazole 40 mg capsule,delayed release(DR/EC) 40 mg PO DAILY hydrochlorothiazide 12.5 mg tablet 12.5 mg PO DAILY atorvastatin 10 mg tablet 10 mg PO DAILY amlodipine 5 mg tablet 5 mg PO DAILY ramipril 10 mg capsule 10 mg PO BID hydralazine 25 mg tablet 25 mg PO TID metformin 500 MG tablet 500 mg PO DAILY Farxiga 10 mg Tablet 10 mg PO DAILY Hold Instructions: until you speak with your diabetic clinic or PCP. gabapentin 300 mg Capsule 300 mg PO Q8H PRN PRN (Reason: neruropathic pain) Qty: 30 0RF Rx Instructions: for neuropathy from diabetes multivitamin Tablet 1 tab PO DAILY Rx Instructions: over the counter potassium chloride 10 mEq tablet,ER particles/crystals 20 meq PO DAILY insulin detemir U-100 100 unit/mL (3 mL) Insulin Pen 8 unit SUBCUT DAILY Qty: 3 0RF insulin lispro [Humalog KwikPen Insulin] 100 unit/mL insulin pen 5 unit subcut TIDAC Primary Care Provider: Dk Pathak NP Referrals: Dk Pathak CHEMICAL LABORATORY SCIENTIST, CHEMICAL LABORATORY SCIENTIST-C [Primary Care Provider] -
[2022-07-20 21:09] VITALS: BP 142/89; PULSE 79; RESP 18; O2SAT 94
[2022-07-20 22:55] LABS: Bedside Glucose 190 mg/dL (74-106)
[2022-07-20 23:20] LABS: Potassium 3.2 mmol/L (3.5-5.1)
[2022-07-21] VITALS: BP 144/94; PULSE 79; RESP 18; O2SAT 94
[2022-07-21] MEDS: Potassium Chloride Oral Tablet 20 MEQ 40 MEQ PO (00:46)
[2022-07-21 01:08] LABS: Bedside Glucose 166 mg/dL (74-106)
== END 2022-07-21 00:55 | disposition home or self-care (01) ==
PROVIDERS: Emergency Provider Student in an Organized Health Care Education/Training Program; PCP Nurse Practitioner Family; Visit Provider Student in an Organized Health Care Education/Training Program
DX: E11.65 Type 2 diabetes mellitus with hyperglycemia (principal); F10.129 Alcohol abuse with intoxication, unspecified; Z79.4 Long term (current) use of insulin; F17.210 Nicotine dependence, cigarettes, uncomplicated; E78.00 Pure hypercholesterolemia, unspecified; I10 Essential (primary) hypertension; E87.6 Hypokalemia; Z79.84 Long term (current) use of oral hypoglycemic drugs; Z79.899 Other long term (current) drug therapy; Z95.2 Presence of prosthetic heart valve; Y90.8 Blood alcohol level of 240 mg/100 ml or more
CPT/HCPCS: 80053; 81001; 82009; 82077; 82962; 83735; 84132; 85025; 93005; 96360; 96361; 99285; J7030; A4216

== ENCOUNTER 2022-11-01 20:00 | Emergency (ER) | payer MEDICAID, SELFPAY ==
[2022-11-01 20:01] VITALS: BP 95/69; PULSE 82; RESP 18; TEMP 36.8; O2SAT 96; BMI 20.3
--- NOTE | 2022-11-01 20:43 | ED.VIS.GI ---
HPI HPI - GI History of Present Illness Chief Complaint: Abd Pain Detail of Chief Complaint: Nausea and vomiting for 5 days. Informant: patient Abdominal Pain/Flank Pain Onset: Days Context: Gradual Onset Timing: Intermittent Nausea/Vomiting/Emesis GI Symptom: Positive for Nausea and Vomiting Onset: Days Severity: Mild Diarrhea/Melena/Hematochezia GI Symptom: Positive for Hematochezia; Negative for Diarrhea or Melena Onset: Today Severity: Mild Associated Symptoms Associated Symptoms: Negative for Dysuria, Frequency, Hematuria or Urgency Narrative Narrative: 62-year-old male history of aortic valve, valve, diabetes and chronic kidney disease. States he had nausea and vomiting for 5 days. He has had small amount of bright red blood per rectum. He is going to see a GI doctor at [facility] it will take several weeks to get in with him. He is on no blood thinners. Currently denies any abdominal pain. He does smoke daily and drinks 2 alcoholic beverages per day. Prior similar symptoms: No Recent Illness/Hospitalization: No PFSH PFSH Medical History Acute dehydration Acute hypokalemia Admitted to alcohol detoxification center Adrenal nodule Alcohol dependence Alcohol withdrawal Alcoholism Alcoholism Aortic aneurysm Ascending aortic dissection (~2005) Cardiac pacemaker in situ (~06/2016) Desire for detoxification Diabetes mellitus, type II Essential hypertension ETOH abuse Hiatal hernia History of diabetes mellitus HTN (hypertension) Hx of hypercholesterolemia Left carotid bruit Non-sustained ventricular tachycardia Pacemaker Pleuritic chest pain Pure hypercholesterolemia Right bundle branch block (RBBB) Shortness of breath Sick sinus syndrome Smoker Substance abuse SVT (supraventricular tachycardia) Thoracic aortic aneurysm Tobacco use Home Medications omeprazole 40 mg capsule,delayed release 40 mg PO DAILY reflux 06/10/18 [History Last Taken 11/11/21] metformin 500 mg tablet 500 mg PO DAILY diabetes 01/21/19 [History Last Taken 11/11/21] amlodipine 5 mg tablet 5 mg PO DAILY HEART 10/17/20 [History Last Taken 11/11/21] atorvastatin 10 mg tablet 10 mg PO DAILY CHOLESTEROL 10/17/20 [History Last Taken 11/11/21] hydralazine 25 mg tablet 25 mg PO TID BP 10/17/20 [History Last Taken 11/11/21] hydrochlorothiazide 12.5 mg tablet 12.5 mg PO DAILY BP 10/17/20 [History Last Taken 11/11/21] ramipril 10 mg capsule 10 mg PO BID BP 10/17/20 [History Last Taken 11/11/21] dapagliflozin propanediol 10 mg tablet (Farxiga) 10 mg PO DAILY DIABETES 09/30/21 [History Last Taken 11/11/21] gabapentin 300 mg capsule 300 mg PO Q8H PRN PRN neruropathic pain #30 caps 11/08/21 [Rx Last Taken 11/11/21] multivitamin 1 tab PO DAILY supplement 11/11/21 [History Last Taken 11/10/21] potassium chloride 10 mEq tablet,extended release(part/cryst) 20 meq PO DAILY supplement 11/11/21 [History Last Taken Unknown] insulin detemir U-100 100 unit/mL (3 mL) subcutaneous pen 8 unit (0.08 mL) subcut DAILY DM #3 mL 02/04/22 [Rx Last Taken 11/11/21] insulin lispro 100 unit/mL subcutaneous pen (Humalog KwikPen (U-100) Insulin) 5 unit subcut TIDAC dm 03/21/22 [History Last Taken Unknown] potassium chloride 10 mEq capsule,extended release 40 meq (4 x 10 mEq) PO DAILY 2 days #8 caps 07/20/22 [Rx Last Taken Unknown] metoprolol succinate 50 mg tablet,extended release 24 hr 50 mg PO BID #60 tabs 10/15/22 [Rx Last Taken Unknown] ondansetron 4 mg disintegrating tablet 4 mg PO Q6H PRN nausea and vomiting #10 tabs 11/01/22 [Rx Last Taken Unknown] Allergy/AdvReac Type Severity Reaction Status Date / Time No Known Allergies Allergy Verified 11/01/22 20:01 Family History Father CAD (coronary artery disease) Mother Dementia Surgical History H/O aortic valve replacement H/O cardiac catheterization History of aortic aneurysm repair (~2016) History of aortic valve replacement with bioprosthetic valve (~2016) History of cataract surgery History of hernia repair Social History Smoking Status: Current every day smoker tobacco type: cigarettes alcohol intake: current alcohol intake frequency: 0-2 drinks per day details: Reports currently ~ 2 tall boys daily. substance use type: former substance user caffeine: Yes Type: coffee Number of servings: 3 ROS ROS ED ROS Narrative Nausea and vomiting. Small amount of blood per rectum. Review of Systems ROS Unobtainable: Denies due to encephalopathy Constitutional Constitutional ED: Denies chills or fever(s) ENT ENT ED: Denies ear pain Cardiovascular Cardiovascular: Denies chest pain or palpitations Respiratory/Chest Respiratory/Chest: Denies cough Gastrointestinal Gastrointestinal: Reports nausea and vomiting; Denies abdominal pain, constipation, diarrhea or melena Genitourinary Genitourinary ED: Denies dysuria or hematuria Musculoskeletal Musculoskeletal: Denies arthralgias Integumentary Denies abscess or Abrasions Neurologic Neurologic: Denies headache(s) Psychiatric Psychiatric: Denies anxiety or depression Endocrine Endocrinology: Denies polydipsia Hematologic/Lymphatic Hematologic/Lymphatic: Denies easy bleeding or easy bruising Allergic/Immunologic Allergic/Immunologic ED: Denies mouth swelling, tongue swelling or urticaria EXAM Physical Exam Narrative Exam Narrative: 62-year-old male vital signs EENT exam mild dry mucous members. Neck nontender. Lungs clear. Heart regular rhythm stock ejection murmur. History of aortic valve. Abdomen soft, nontender, nondistended normal bowel sounds no peritoneal signs. Moving all 4 extremities. Calves are nontender without edema or cords. Neurologically is awake alert with no focal motor deficits.. CT show a hybrid labs tension with a blood pressure 95/69. He is afebrile. He does not look septic or toxic. Const Vital Signs: 11/01/22 20:01 11/01/22 22:47 Temperature 98.2 F Temperature Source Oral Pulse Rate 82 74 Respiratory Rate 18 16 Blood Pressure 95/69 119/73 Blood Pressure Mean 77 88 Pulse Ox 96 98 Oxygen Delivery Method Room Air Room Air Positive well nourished and well developed; Negative for obese, cachectic, contractures or unkempt General Appearance ED: well developed and NAD; Negative for unkempt, cachectic, contractures or pallor Nutritional Appearance: Negative for cachectic or obese HEENT Reports dry mucous membranes normocephalic and atraumatic; Negative for trauma or tenderness Mouth ED: Yes dry mucous membranes Mouth: dry mucous membranes Eyes PERRL and EOMs intact bilaterally General Eye ED: Negative for pale conjunctiva or scleral icterus Neck no lymphadenopathy, supple and no JVD General: Negative for tenderness Carotids: Negative for other Lymph Lymphatic: Negative for other Resp normal respiratory effort and clear to auscultation bilaterally Effort and Inspection: Negative for respiratory distress Auscultation: Negative for rales, rhonchi or wheezes Cardio regular rate, regular rhythm, S1 normal heart sound and S2 normal heart sound GI non-tender, non-distended and no masses Auscultation: normoactive bowel sounds Palpation: soft; Negative for tender, guarding, mass, pulsatile mass or rebound tenderness present Back/Spine no CVA tenderness General Back: Negative for CVA tenderness Cervical Spine: Negative for cervical spine tenderness Thoracic Spine / Upper Back: Negative for thoracic spinal tenderness Lumbar Spine / Lower Back: Negative for lumbar spinal tenderness Coccyx: Negative for other Extremity full ROM General Extremety ED: Negative for edema or tenderness General Extremity: Negative for edema Neuro CN's II-XII intact bilaterally and moves all extremities Sensorium / Orientation: alert, oriented to person, oriented to place and oriented to time; Negative for orientation impaired, confused or lethargic Motor Exam: strength 5/5 throughout Psych mental status grossly normal and thought process normal Appearance: Negative for unkempt Attitude: No agitated Mood & Affect: Negative for depressed, anxious or tearful Skin no wounds General Skin Exam: Negative for jaundice or pallor Lesions: no lesions Rashes: no rashes Trauma: Negative for abrasion Nails: Negative for discolored MDM MDM MDM Narrative Medical decision making narrative: 62-year-old male with nausea and vomiting for days. Presents hypotensive most likely from dehydration. Treated with IV fluids. Zofran for nausea. Screening labs are being obtained. His abdomen is benign. Repeat exam patient is doing much better at 1045. Current blood pressure is 119/73. Abdomen is benign. Patient already has appointment to see a GI specialist at [place]. He will be discharged home with Zofran. Lab Data Attestation: I reviewed the patient's lab results. Lab results narrative: CBC unremarkable. White count of 6. H&H of 14.1 and 41. Platelets 151. Electrolytes show potassium 3.1. That would go along with his nausea and vomiting. Anion gap of 9. BUN and creatinine of 5 and 1. Glucose 205. Liver enzymes are elevated with an AST of 434 and ALT of 189 and an alk phos of 196. Total bilirubin is normal. Patient has had elevated liver enzymes before. Lipase is normal at less than 10. Labs: Laboratory Results - last 24 hr 11/01/22 20:56 WBC 6.5 RBC 4.33 L Hgb 14.1 Hct 41.9 MCV 96.8 H MCH 32.6 H MCHC 33.7 RDW Std Deviation 45.1 H RDW Coeff of [place] 12.5 Plt Count 151 MPV 10.7 Immature Gran % (Auto) 0.500 Neut % (Auto) 67.9 Lymph % (Auto) 21.5 [place] % (Auto) 7.9 Eos % (Auto) 1.1 Baso % (Auto) 1.1 H Absolute Neuts (auto) 4.4 Absolute Lymphs (auto) 1.39 Nucleated RBC % 0 Sodium 141 Potassium 3.1 L Chloride 101 Carbon Dioxide 31.0 Anion Gap 9 BUN 5 L Creatinine 1.01 Estim Creat Clear Calc 70.71 Est GFR (MDRD) Af Amer 97 Est GFR (MDRD) Non-Af 80 BUN/Creatinine Ratio 5.0 L Glucose 205 H Calcium 8.5 Total Bilirubin 0.40 AST 434 H ALT 189 H Alkaline Phosphatase 196 H Total Protein 6.5 Albumin 3.0 L Globulin 3.5 Albumin/Globulin Ratio 0.9 Lipase < 10 L Discharge Plan Triage Chief Complaint: Abd Pain Other Complaint: ETOH Intox Nausea/Vomiting ED Provider: Vinh Lomeli Dx/Rx/DC Orders Clinical Impression: History of valvular heart disease, Hx of gallstones, Nausea & vomiting, Abdominal pain Instructions: ED Abdominal Pain Gallstone Poss, ED Vomiting (Adult) Prescriptions: New ondansetron 4 mg tablet,disintegrating 4 mg PO Q6H PRN (Reason: nausea and vomiting) Qty: 10 0RF No Action omeprazole 40 mg capsule,delayed release(DR/EC) 40 mg PO DAILY hydrochlorothiazide 12.5 mg tablet 12.5 mg PO DAILY atorvastatin 10 mg tablet 10 mg PO DAILY amlodipine 5 mg tablet 5 mg PO DAILY ramipril 10 mg capsule 10 mg PO BID hydralazine 25 mg tablet 25 mg PO TID metformin 500 MG tablet 500 mg PO DAILY Farxiga 10 mg Tablet 10 mg PO DAILY Hold Instructions: until you speak with your diabetic clinic or PCP. gabapentin 300 mg Capsule 300 mg PO Q8H PRN PRN (Reason: neruropathic pain) Qty: 30 0RF Rx Instructions: for neuropathy from diabetes multivitamin Tablet 1 tab PO DAILY Rx Instructions: over the counter potassium chloride 10 mEq tablet,ER particles/crystals 20 meq PO DAILY insulin detemir U-100 100 unit/mL (3 mL) Insulin Pen 8 unit SUBCUT DAILY Qty: 3 0RF insulin lispro [Humalog KwikPen Insulin] 100 unit/mL insulin pen 5 unit subcut TIDAC potassium chloride 10 mEq capsule, extended release 40 meq PO DAILY 2 Days Qty: 8 0RF metoprolol succinate 50 mg tablet extended release 24 hr 50 mg PO BID Qty: 60 11RF Primary Care Provider: Dk Pathak NP Referrals: Dk Pathak [employer], [employer] [Primary Care Provider] - As soon as possible Activity Restrictions/Additional Instructions: Plenty of fluids and rest. Probably suggest stopping smoking and decreasing your alcohol use. Zofran as needed for nausea. Call and follow-up with your GI doctor soon as possible. If increasing pain, fever, intractable vomiting or feeling worse. Disposition Disposition: Home, Self Care
[2022-11-01] MEDS: 0.9% Normal Saline (1000mL) 1,000 ML 1000 ML IV (20:59)
[2022-11-01] MEDS: Ondansetron 4 MG/2 ML Vial IV (21:00)
[2022-11-01 21:15] LABS: Absolute Lymphocyte Count 1.39 X10^3/uL (0.83-4.51); Absolute Neutrophil Count 4.4 X10^3/uL (2.0-7.7); Basophil# 0.07 X10^3/uL; Basophil% 1.1 % (0-1); Eosinophil# 0.07 X10^3/uL; Eosinophils% 1.1 % (0-5); Hematocrit 41.9 % (40-54); Hemoglobin 14.1 g/dL (13.0-16.5); Lymphocyte # 1.39 X10^3/ul (0.83-4.51); Lymphocyte % 21.5 % (19-41); Mean Corp Hgb Conc 33.7 g/dL (32-36); Mean Corpuscular Hgb 32.6 pg (27.0-32.0); Mean Corpuscular Volume 96.8 fL (80-94); Mean Platelet Vol. 10.7 fl (6.2-12.0); Monocyte# 0.51 X10^3/uL; Monocyte% 7.9 % (0-10); NRBC Flagged by Analyzer 0 % (0-5); Neutrophil # 4.41 X10^3/uL (2.7-7.7); Neutrophil % 67.9 % (47-70); Platelet Count 151 K/mm3 (150-450); RBC Distribution Width CV 12.5 % (11.6-14.6); RBC Distribution Width SD 45.1 fl (35.1-43.9); Red Blood Count 4.33 M/mm3 (4.6-6.2); White Blood Count 6.5 K/mm3 (4.4-11.0)
[2022-11-01 21:21] LABS: ALB/GLOB Ratio 0.9 RATIO (0.9-2.4); AST(SGOT) 434 U/L (15-37); Alanine Aminotransfer ALT/SGPT 189 U/L (16-61); Alkaline Phosphatase 196 U/L (45-117); Anion Gap 9 (5-15); BUN 5 mg/dL (7-18); Calcium,Total 8.5 mg/dL (8.5-10.1); Chloride 101 mmol/L (98-107); Creatinine, Serum 1.01 mg/dL (0.70-1.30); EST Glomerular Filtration Rate 80 mL/min (>60); Est Glom Filt Rate - Afr Amer 97 mL/min (>60); Estimated Creatinine Clearance 70.71 ml/min; Globulin 3.5 g/dL (2.2-4.2); Glucose 205 mg/dL (74-106); Lipase < 10 U/L (13-75); Potassium 3.1 mmol/L (3.5-5.1); Protein, Total 6.5 g/dL (6.4-8.2); Sodium Level 141 mmol/L (136-145)
[2022-11-01 22:47] VITALS: BP 119/73; PULSE 74; RESP 16; O2SAT 98
[2022-11-01 23:04] VITALS: BP 123/78; PULSE 78; RESP 18; O2SAT 95
== END 2022-11-01 23:05 | disposition home or self-care (01) ==
PROVIDERS: Emergency Provider Emergency Medicine; PCP Nurse Practitioner Family; Visit Provider Emergency Medicine
DX: R11.2 Nausea with vomiting, unspecified (principal); E11.22 Type 2 diabetes mellitus with diabetic chronic kidney disease; Z79.4 Long term (current) use of insulin; I12.9 Hypertensive chronic kidney disease with stage 1 through stage 4 chronic kidney disease, or unspecified chronic kidney disease; F17.210 Nicotine dependence, cigarettes, uncomplicated; E78.00 Pure hypercholesterolemia, unspecified; N18.9 Chronic kidney disease, unspecified; Z95.0 Presence of cardiac pacemaker; Z79.84 Long term (current) use of oral hypoglycemic drugs; Z79.899 Other long term (current) drug therapy; Z95.5 Presence of coronary angioplasty implant and graft; Z95.3 Presence of xenogenic heart valve; R10.9 Unspecified abdominal pain; Z87.19 Personal history of other diseases of the digestive system
CPT/HCPCS: 80053; 83690; 85025; 96361; 96374; 99285; J7030; A4216; J2405

== ENCOUNTER 2022-11-13 18:25 | Inpatient (IN) | payer MEDICAID, SELFPAY ==
[2022-11-13] VITALS (7 sets, daily range): BP systolic 97–117; BP diastolic 60–74; PULSE 66–89; RESP 14–18; TEMP 36.6–36.7; O2SAT 95–98; BMI 20.7
--- NOTE | 2022-11-13 18:36 | EX.ED.DYSGE1 ---
HPI History of Present Illness Chief Complaint: Hypoglycemia Detail of Chief Complaint: Low blood sugar Informant: patient Narrative Narrative: Patient presents to the emergency department via EMS from home. He apparently called the squad because he could not figure out how to give himself a medication which she cannot explain to me what he was try to give himself. Patient was noted to have low blood glucose. Patient has history of diabetes. Patient states that he has not eaten in a week and has been losing weight. His recently passed. Patient states he just does not want to be here and he asked that I finish them off. PFSH PFSH Medical History Adrenal nodule Alcohol dependence Alcoholism Ascending aortic dissection (~2005) Cardiac pacemaker in situ (~06/2016) Diabetes mellitus, type II Essential hypertension Hiatal hernia History of diabetes mellitus HTN (hypertension) Hx of hypercholesterolemia Left carotid bruit Non-sustained ventricular tachycardia Pacemaker Pure hypercholesterolemia Right bundle branch block (RBBB) Sick sinus syndrome Smoker Substance abuse SVT (supraventricular tachycardia) Thoracic aortic aneurysm Tobacco use Home Medications omeprazole 40 mg capsule,delayed release 40 mg PO DAILY reflux 06/10/18 [History Last Taken 11/11/21] metformin 500 mg tablet 500 mg PO DAILY diabetes 01/21/19 [History Last Taken 11/11/21] amlodipine 5 mg tablet 5 mg PO DAILY HEART 10/17/20 [History Last Taken 11/11/21] atorvastatin 10 mg tablet 10 mg PO DAILY CHOLESTEROL 10/17/20 [History Last Taken 11/11/21] hydralazine 25 mg tablet 25 mg PO TID BP 10/17/20 [History Last Taken 11/11/21] hydrochlorothiazide 12.5 mg tablet 12.5 mg PO DAILY BP 10/17/20 [History Last Taken 11/11/21] ramipril 10 mg capsule 10 mg PO BID BP 10/17/20 [History Last Taken 11/11/21] dapagliflozin propanediol 10 mg tablet (Farxiga) 10 mg PO DAILY DIABETES 09/30/21 [History Last Taken 11/11/21] gabapentin 300 mg capsule 300 mg PO Q8H PRN PRN neruropathic pain #30 caps 11/08/21 [Rx Last Taken 11/11/21] multivitamin 1 tab PO DAILY supplement 11/11/21 [History Last Taken 11/10/21] potassium chloride 10 mEq tablet,extended release(part/cryst) 20 meq PO DAILY supplement 11/11/21 [History Last Taken Unknown] insulin detemir U-100 100 unit/mL (3 mL) subcutaneous pen 8 unit (0.08 mL) subcut DAILY DM #3 mL 02/04/22 [Rx Last Taken 11/11/21] insulin lispro 100 unit/mL subcutaneous pen (Humalog KwikPen (U-100) Insulin) 5 unit subcut TIDAC dm 03/21/22 [History Last Taken Unknown] potassium chloride 10 mEq capsule,extended release 40 meq (4 x 10 mEq) PO DAILY 2 days #8 caps 07/20/22 [Rx Last Taken Unknown] metoprolol succinate 50 mg tablet,extended release 24 hr 50 mg PO BID #60 tabs 10/15/22 [Rx Last Taken Unknown] ondansetron 4 mg disintegrating tablet 4 mg PO Q6H PRN nausea and vomiting #10 tabs 11/01/22 [Rx Last Taken Unknown] Allergy/AdvReac Type Severity Reaction Status Date / Time No Known Allergies Allergy Verified 11/01/22 20:01 Family History Father CAD (coronary artery disease) Mother Dementia Surgical History H/O aortic valve replacement H/O cardiac catheterization History of aortic aneurysm repair (~2017) History of aortic valve replacement with bioprosthetic valve (~2017) History of cataract surgery History of hernia repair Social History Smoking Status: Current every day smoker tobacco type: cigarettes alcohol intake: current alcohol intake frequency: 0-2 drinks per day details: Reports currently ~ 2 tall boys daily. substance use type: former substance user caffeine: Yes Type: coffee Number of servings: 3 ROS ROS ED Review of Systems ROS Unobtainable: other Constitutional Constitutional ED: Reports lethargy; Denies chills, fever(s), sweats or weight loss Eyes Eyes: Denies blurry vision, change in vision or diplopia ENT ENT ED: Denies rhinorrhea or sore throat Cardiovascular Cardiovascular: Denies chest pain, orthopnea or racing heartbeat Respiratory/Chest Respiratory/Chest: Reports dyspnea and dyspnea on exertion; Denies cough, orthopnea or sputum Gastrointestinal Gastrointestinal: Denies abdominal pain, diarrhea, nausea or vomiting Genitourinary Genitourinary ED: Denies dysuria, hematuria or urinary frequency Musculoskeletal Musculoskeletal: Denies arthralgias, back pain, myalgias or neck pain Integumentary Denies abscess, Abrasions or rash Neurologic Neurologic: Denies headache(s) or weakness Psychiatric Psychiatric: Denies anxiety, depression or suicidal thoughts Endocrine Endocrinology: Denies polydipsia, polyphagia or polyuria Hematologic/Lymphatic Hematologic/Lymphatic: Denies easy bleeding, easy bruising or lymphadenopathy Allergic/Immunologic Allergic/Immunologic ED: Denies mouth swelling, tongue swelling or urticaria EXAM Physical Exam Const Vital Signs: 11/13/22 18:26 11/13/22 18:30 11/13/22 18:33 Temperature 97.9 F Temperature Source Oral Pulse Rate 66 72 Respiratory Rate 16 16 Respiratory Pattern Normal Blood Pressure 97/67 97/67 Blood Pressure Mean 77 77 Blood Pressure Source Blood Pressure Position Blood Pressure Location Pulse Ox 96 95 Oxygen Delivery Method Room Air Room Air 11/13/22 20:25 11/13/22 21:51 11/13/22 21:15 Temperature 98.1 F Temperature Source Oral Pulse Rate 81 88 89 Respiratory Rate 15 14 16 Respiratory Pattern Blood Pressure 100/60 108/69 100/60 Blood Pressure Mean 73 82 73 Blood Pressure Source Monitor Blood Pressure Position Left Lateral Blood Pressure Location Left Arm Pulse Ox 95 98 98 Oxygen Delivery Method Room Air Room Air Room Air Positive well nourished and well developed General Appearance ED: well developed and NAD HEENT Reports TM's clear and moist mucous membranes normocephalic and atraumatic; Negative for trauma or tenderness Tympanic Membrane ED: Yes TM's clear Eyes PERRL and EOMs intact bilaterally General Eye ED: Negative for pale conjunctiva or scleral icterus Neck no lymphadenopathy, supple and no JVD General: Negative for tenderness Chest Wall inspection of chest normal and palpation of chest normal Chest: Negative for tenderness Resp normal respiratory effort and clear to auscultation bilaterally Effort and Inspection: Negative for respiratory distress or pain with movement Auscultation: Negative for rhonchi, wheezes or diminished lung sounds Cardio regular rate, regular rhythm, S1 normal heart sound, S2 normal heart sound and no murmurs Peripheral Pulses: pulses 2+ throughout GI normal to inspection, nondistended, normoactive bowel sounds, soft to palpation, non-tender, non-distended and no masses Back/Spine no CVA tenderness and no thoracic nor lumbar tenderness Extremity normal to inspection General Extremety ED: Negative for edema General Extremity: Negative for edema Neuro oriented x3, CN's II-XII intact bilaterally, no sensory deficits noted and gait normal Sensorium / Orientation: awake, alert, oriented to person, oriented to place and oriented to time Motor Exam: strength 5/5 throughout and strength abnormal Psych mental status grossly normal Skin no rashes or lesions noted and no wounds MDM MDM MDM Narrative Medical decision making narrative: Patient presents with episode of hypoglycemia from home. He apparently lives with his father who is 95 years old. Patient was attempting to use some sort of diabetic reader to evaluate for his blood sugar readings and could not figure out how to do it. He called his aunt to help him and was somewhat confused and disoriented so squad was called. EMS noted patient to be hypoglycemic. Patient also admits to drinking alcohol tonight. Patient drinks daily. Initially was a very poor historian and stated that he just did not want to be here when I would ask him if he wanted to he would just say I just do not want to be here. When we checked his blood sugar in the department his blood sugar was in the 40s. We gave him orange juice and I gave him 25 g glucose. Patient's mentation improved tremendously. He was able to give more details as to what happened. He denies feeling suicidal or homicidal. He tells me that he is scheduled to go to custodial in the week. Patient would like to detox from alcohol. Follow-up blood sugars initially in the 200 range then in the 135 range. Patient was able to eat. Blood alcohol was 248. Case will be discussed with hospitalist to evaluate patient for admission for alcohol detox and his hypoglycemia which seems to have improved currently. Patient tells me has not been eating well and has been losing weight because he has been under more stress and is scheduled to follow-up with GI. Lab Data Attestation: I reviewed the patient's lab results. Labs: Laboratory Results - last 24 hr 11/13/22 11/13/22 11/13/22 18:30 18:57 18:57 WBC Cancelled Corrected WBC Cancelled RBC Cancelled Hgb Cancelled Hct Cancelled MCV Cancelled MCH Cancelled MCHC Cancelled RDW Std Deviation Cancelled RDW Coeff of Kalpana Cancelled Plt Count Cancelled MPV Cancelled Immature Gran % (Auto) Cancelled Neut % (Auto) Cancelled Lymph % (Auto) Cancelled [place] % (Auto) Cancelled Eos % (Auto) Cancelled Baso % (Auto) Cancelled Absolute Neuts (auto) Cancelled Absolute Lymphs (auto) Cancelled Total Counted Cancelled Neutrophils % (Manual) Cancelled Band Neutrophils % Cancelled Lymphocytes % (Manual) Cancelled Monocytes % (Manual) Cancelled Eosinophils % (Manual) Cancelled Basophils % (Manual) Cancelled Metamyelocytes % Cancelled Myelocytes % Cancelled Promyelocytes % Cancelled Blast Cells % Cancelled Plasma Cell % (Manual) Cancelled Other Cells % Cancelled Nucleated RBC % Cancelled Nucleated RBCs/100 WBC Cancelled Differential Comment Cancelled Diff Path Review Cancelled Hypersegmented Neuts Cancelled Atypical Lymphocytes Cancelled Reactive Lymphocytes Cancelled Smudge Cells Cancelled Toxic Granulation Cancelled Toxic Vacuolation Cancelled Dohle Bodies Cancelled [place] Rods Cancelled Platelet Estimate Cancelled Plt Morphology Comment Cancelled RBC Morphology Cancelled Cancelled Polychromasia Cancelled Hypochromasia Cancelled Poikilocytosis Cancelled Basophilic Stippling Cancelled Anisocytosis Cancelled Microcytosis Cancelled Macrocytosis Cancelled Spherocytes Cancelled Sickle Cells Cancelled Target Cells Cancelled Tear Drop Cells Cancelled Ovalocytes Cancelled Stomatocytes Cancelled [place] Bodies Cancelled Kristofer Cells Cancelled Bite Cells Cancelled Crenated Cell Cancelled Acanthocytes (Spur) Cancelled Rouleaux Cancelled Schistocytes Cancelled Sodium 138 Potassium 3.7 Chloride 100 Carbon Dioxide 28.0 Anion Gap 10 BUN 13 Creatinine 1.01 Estim Creat Clear Calc 74.37 Est GFR (MDRD) Af Amer 97 Est GFR (MDRD) Non-Af 80 BUN/Creatinine Ratio 12.9 Glucose 53 L Calcium 7.8 L Phosphorus Magnesium Total Bilirubin 0.20 AST 81 H ALT 64 H Alkaline Phosphatase 128 H Total Protein 5.9 L Albumin 2.6 L Globulin 3.3 Albumin/Globulin Ratio 0.8 L Urine Opiates Screen Urine Methadone Screen Ur Barbiturates Screen Ur Phencyclidine Scrn Ur Amphetamines Screen MDMA (Ecstasy) Screen U Benzodiazepines Scrn Urine Cocaine Screen U Cannabinoids Screen Ur Drug Screen Comment Ethyl Alcohol POC Glucose 43 L* 11/13/22 11/13/22 11/13/22 19:10 19:33 20:30 WBC 8.5 Corrected WBC RBC 3.90 L Hgb 12.8 L Hct 38.1 L MCV 97.7 H MCH 32.8 H MCHC 33.6 RDW Std Deviation 52.9 H RDW Coeff of Kalp[place] 15.0 H Plt Count 246 MPV 9.8 Immature Gran % (Auto) 0.500 Neut % (Auto) 72.2 H Lymph % (Auto) 19.7 [place] % (Auto) 6.3 Eos % (Auto) 0.5 Baso % (Auto) 0.8 Absolute Neuts (auto) 6.2 Absolute Lymphs (auto) 1.68 Total Counted Neutrophils % (Manual) Band Neutrophils % Lymphocytes % (Manual) Monocytes % (Manual) Eosinophils % (Manual) Basophils % (Manual) Metamyelocytes % Myelocytes % Promyelocytes % Blast Cells % Plasma Cell % (Manual) Other Cells % Nucleated RBC % 0 Nucleated RBCs/100 WBC Differential Comment Diff Path Review Hypersegmented Neuts Atypical Lymphocytes Reactive Lymphocytes Smudge Cells Toxic Granulation Toxic Vacuolation Dohle Bodies [place] Rod[place] Platelet Estimate Plt Morphology Comment RBC Morphology Polychromasia Hypochromasia Poikilocytosis Basophilic Stippling Anisocytosis Microcytosis Macrocytosis Spherocytes Sickle Cells Target Cells Tear Drop Cells Ovalocytes Stomatocytes [place] Bodies [place] Cells Bite Cells Crenated Cell Acanthocytes (Spur) Rouleaux Schistocytes Sodium Potassium Chloride Carbon Dioxide Anion Gap BUN Creatinine Estim Creat Clear Calc Est GFR (MDRD) Af Amer Est GFR (MDRD) Non-Af BUN/Creatinine Ratio Glucose Calcium Phosphorus 3.7 Magnesium 2.3 Total Bilirubin AST ALT Alkaline Phosphatase Total Protein Albumin Globulin Albumin/Globulin Ratio Urine Opiates Screen NEGATIVE Urine Methadone Screen NEGATIVE Ur Barbiturates Screen NEGATIVE Ur Phencyclidine Scrn NEGATIVE Ur Amphetamines Screen NEGATIVE MDMA (Ecstasy) Screen NEGATIVE U Benzodiazepines Scrn NEGATIVE Urine Cocaine Screen NEGATIVE U Cannabinoids Screen NEGATIVE Ur Drug Screen Comment Ethyl Alcohol 214.0 POC Glucose 214 H 138 H EKG Initial EKG: Attestation: I personally reviewed and interpreted this EKG as follows: Comments: Sinus rhythm with rate of 71 bpm with right bundle branch block and nonspecific ST changes Prior EKG tracings: available for review Prior: Unchanged Discharge Plan Dx/Rx/DC Orders Clinical Impression: Admitted to alcohol detoxification center, Alcohol intoxication, Hypoglycemia Disposition Disposition: Acute Care Hospital [facility]
--- NOTE | 2022-11-13 18:37 | EKG12_ITS ---
Test Reason : DYSRHYTHMIA Blood Pressure : / mmHG Vent. Rate : 071 BPM Atrial Rate : 071 BPM P-R Int : 166 ms QRS Dur : 136 ms QT Int : 436 ms P-R-T Axes : -21 -26 102 degrees QTc Int : 473 ms Sinus rhythm with occasional Premature ventricular complexes Right bundle branch block T wave abnormality, consider lateral ischemia Abnormal ECG Confirmed by ZHAO FRANCISCO, KETTY ([id number]), newspaper photo editor TARA LEON ([id number]) on 11/17/2022 11:41:32 AM Referred By: Confirmed By:KETTY CHURCHILL MD
[2022-11-13 18:48] LABS: Bedside Glucose 43 mg/dL (74-106)
[2022-11-13 19:19] LABS: Absolute Lymphocyte Count 1.68 X10^3/uL (0.83-4.51); Absolute Neutrophil Count 6.2 X10^3/uL (2.0-7.7); Basophil# 0.07 X10^3/uL; Basophil% 0.8 % (0-1); Eosinophil# 0.04 X10^3/uL; Eosinophils% 0.5 % (0-5); Hematocrit 38.1 % (40-54); Hemoglobin 12.8 g/dL (13.0-16.5); Lymphocyte # 1.68 X10^3/ul (0.83-4.51); Lymphocyte % 19.7 % (19-41); Mean Corp Hgb Conc 33.6 g/dL (32-36); Mean Corpuscular Hgb 32.8 pg (27.0-32.0); Mean Corpuscular Volume 97.7 fL (80-94); Mean Platelet Vol. 9.8 fl (6.2-12.0); Monocyte# 0.54 X10^3/uL; Monocyte% 6.3 % (0-10); NRBC Flagged by Analyzer 0 % (0-5); Neutrophil # 6.16 X10^3/uL (2.7-7.7); Neutrophil % 72.2 % (47-70); Platelet Count 246 K/mm3 (150-450); RBC Distribution Width SD 52.9 fl (35.1-43.9); White Blood Count 8.5 K/mm3 (4.4-11.0)
[2022-11-13] MEDS: 0.9% Normal Saline (1000mL) 1,000 ML 1000 ML IV (19:21)
[2022-11-13] MEDS: Dextrose 50%-Water 25 GM/50 ML DISP.SYRIN IV (19:21)
[2022-11-13] MEDS: Ondansetron 4 MG/2 ML Vial IV (19:21)
[2022-11-13 19:54] LABS: ALB/GLOB Ratio 0.8 RATIO (0.9-2.4); AST(SGOT) 81 U/L (15-37); Alanine Aminotransfer ALT/SGPT 64 U/L (16-61); Albumin, Serum 2.6 g/dL (3.2-5.0); Alkaline Phosphatase 128 U/L (45-117); Anion Gap 10 (5-15); BUN 13 mg/dL (7-18); BUN/Creat Ratio 12.9 RATIO (10-20); Calcium,Total 7.8 mg/dL (8.5-10.1); Chloride 100 mmol/L (98-107); Creatinine, Serum 1.01 mg/dL (0.70-1.30); EST Glomerular Filtration Rate 80 mL/min (>60); Est Glom Filt Rate - Afr Amer 97 mL/min (>60); Estimated Creatinine Clearance 74.37 ml/min; Globulin 3.3 g/dL (2.2-4.2); Glucose 53 mg/dL (74-106); Potassium 3.7 mmol/L (3.5-5.1); Protein, Total 5.9 g/dL (6.4-8.2); Sodium Level 138 mmol/L (136-145)
[2022-11-13 19:54] LABS: Amphetamine Urine VISTA NEGATIVE (<1000 ng/mL); Barbiturate Urine VISTA NEGATIVE (< 200 ng/mL); Benzodiazepine Urine VISTA NEGATIVE (< 200 ng/mL); Cocaine Urine VISTA NEGATIVE (< 300 ng/mL); Ecstacy Urine VISTA NEGATIVE (< 500 ng/mL); Methadone Urine VISTA NEGATIVE (< 300 ng/mL); PCP Urine VISTA NEGATIVE (< 25 ng/mL); THC Urine VISTA NEGATIVE (< 50 ng/mL); Vista UDS pH Range 7
[2022-11-13 19:59] LABS: Bedside Glucose 214 mg/dL (74-106)
[2022-11-13] MEDS: 0.9% Normal Saline (1000mL) 1,000 ML 15 ML IV (20:22)
[2022-11-13 20:50] LABS: Bedside Glucose 138 mg/dL (74-106)
--- NOTE | 2022-11-13 22:30 | HP.PCM.HOS_ITS ---
HPI - General General Date of Admission: 11/13/22 Date of Service: 11/13/22 Chief Complaint: EtOH intoxication. HPI Narrative The patient is a 61 y/o M w/ PMHx: Chronic macrocytic anemia, Diabetes mellitus type II, Hx sick sinus syndrome s/p pacemaker placement, Hx Ascending aortic dissection s/p repair, Valvular heart disease s/p AVR with bioprosthetic valve, HTN, HLD, GERD, Moderate chronic malnutrition related to inadequate protein and caloric intake secondary to alcohol abuse, EtOH abuse with chronic LFT elevation (Reporting 2-3 Tall Boys daily, admitted for acute EtOH detoxification 11/05/21, 11/11/21, 02/01/22, 03/21/22 who presents to the [facility] ED on 11/13/22 with history of call per squad as patient had been having difficulty with administering himself medication and upon their presentation noted that he was hypoglycemic which then prompted him to reveal that he had not eaten for several days and has been losing weight with the recent passing of his with concern by EMS prompting ED transition for evaluation. Patient upon ED arrival was visibly intoxicated. Work-up in the included T97.9, heart rate 66, BP initially 97/67 with most recent repeat 108/69, respiratory rate 16, 96% on room air, CBC with WBC 8.5, hemoglobin 12.8, MCV 97.7, platelet 246 without marked shift, CMP with glucose initially 53 with repeat trending improved to 214 and most recently 138, hepatic profile with AST/ALT 81/64, alk phos 128, urine drug screen negative, ethyl alcohol level 214. In the ED patient administered dextrose amp, 1 L normal saline as well as Zofran 4 mg IV x1. Patient upon discussion did state he would like detoxification. ED physician reported that patient has upcoming court case and potentially planned incarceration in 1 week but this is unclear. [facility] Medical History Adrenal nodule Alcohol dependence Alcoholism Ascending aortic dissection (~2005) Cardiac pacemaker in situ (~06/2016) Diabetes mellitus, type II Essential hypertension Hiatal hernia History of diabetes mellitus HTN (hypertension) Hx of hypercholesterolemia Left carotid bruit Non-sustained ventricular tachycardia Pacemaker Pure hypercholesterolemia Right bundle branch block (RBBB) Sick sinus syndrome Smoker Substance abuse SVT (supraventricular tachycardia) Thoracic aortic aneurysm Tobacco use Home Medications omeprazole 40 mg capsule,delayed release 40 mg PO DAILY reflux 06/10/18 [History Last Taken 11/11/21] metformin 500 mg tablet 500 mg PO DAILY diabetes 01/21/19 [History Last Taken 11/11/21] amlodipine 5 mg tablet 5 mg PO DAILY HEART 10/17/20 [History Last Taken 11/11/21] atorvastatin 10 mg tablet 10 mg PO DAILY CHOLESTEROL 10/17/20 [History Last Taken 11/11/21] hydralazine 25 mg tablet 25 mg PO TID BP 10/17/20 [History Last Taken 11/11/21] hydrochlorothiazide 12.5 mg tablet 12.5 mg PO DAILY BP 10/17/20 [History Last Taken 11/11/21] ramipril 10 mg capsule 10 mg PO BID BP 10/17/20 [History Last Taken 11/11/21] dapagliflozin propanediol 10 mg tablet ([facility]) 10 mg PO DAILY DIABETES 09/30/21 [History Last Taken 11/11/21] gabapentin 300 mg capsule 300 mg PO Q8H PRN PRN neruropathic pain #30 caps 11/08/21 [Rx Last Taken 11/11/21] multivitamin 1 tab PO DAILY supplement 11/11/21 [History Last Taken 11/10/21] potassium chloride 10 mEq tablet,extended release(part/cryst) 20 meq PO DAILY supplement 11/11/21 [History Last Taken Unknown] insulin detemir U-100 100 unit/mL (3 mL) subcutaneous pen 8 unit (0.08 mL) subcut DAILY DM #3 mL 02/04/22 [Rx Last Taken 11/11/21] insulin lispro 100 unit/mL subcutaneous pen (Humalog KwikPen (U-100) Insulin) 5 unit subcut TIDAC dm 03/21/22 [History Last Taken Unknown] potassium chloride 10 mEq capsule,extended release 40 meq (4 x 10 mEq) PO DAILY 2 days #8 caps 07/20/22 [Rx Last Taken Unknown] metoprolol succinate 50 mg tablet,extended release 24 hr 50 mg PO BID #60 tabs 10/15/22 [Rx Last Taken Unknown] ondansetron 4 mg disintegrating tablet 4 mg PO Q6H PRN nausea and vomiting #10 t abs 11/01/22 [Rx Last Taken Unknown] Allergy/AdvReac Type Severity Reaction Status Date / Time No Known Allergies Allergy Verified 11/01/22 20:01 Family History Father CAD (coronary artery disease) Mother Dementia Surgical History H/O aortic valve replacement H/O cardiac catheterization History of aortic aneurysm repair (~2017) History of aortic valve replacement with bioprosthetic valve (~2017) History of cataract surgery History of hernia repair Social History Smoking Status: Current every day smoker tobacco type: cigarettes alcohol intake: current alcohol intake frequency: 0-2 drinks per day details: Reports currently ~ 2 tall boys daily. substance use type: former substance user caffeine: Yes Type: coffee Number of servings: 3 ROS ROS Narrative Admission Review of Systems: CONSTITUTIONAL: No weight loss, fever, chills, + weakness or fatigue. HEENT: Eyes: No visual loss, blurred vision, double vision or yellow sclerae. Ears, Nose, Throat: No hearing loss, sneezing, congestion, runny nose or sore throat. SKIN: No rash or itching, lesions, wounds. CARDIOVASCULAR: No chest pain, palpitations, edema, orthopnea, syncopal events. RESPIRATORY: No shortness of breath, cough or sputum, wheezing, hemoptysis. GASTROINTESTINAL: + anorexia, No nausea, vomiting, diarrhea, abdominal pain, wang joanie, BRBPR. GENITOURINARY: No dysuria, frequency, urgency or retention. NEUROLOGICAL: + Transient confusion with hypoglycemia. No headache, dizziness, syncope, paralysis, ataxia, numbness or tingling in the extremities, focal weakness, change in bowel or bladder control, seizure. MUSCULOSKELETAL: + muscle, back pain, joint pain or stiffness. HEMATOLOGIC: + anemia, easy bleeding or bruising. LYMPHATICS: No enlarged nodes. No history of splenectomy. PSYCHIATRIC: + history of depression or anxiety. ENDOCRINOLOGIC: No cold or heat intolerance. No polyuria or polydipsia. ALLERGIES: No history of asthma, hives, eczema or rhinitis. Vital Signs Vital Signs Vital Signs: 11/13/22 18:26 11/13/22 18:30 11/13/22 18:33 Temperature 97.9 F Temperature Source Oral Pulse Rate 66 72 Respiratory Rate 16 16 Respiratory Pattern Normal Blood Pressure 97/67 97/67 Blood Pressure Mean 77 77 Blood Pressure Source Blood Pressure Position Blood Pressure Location Pulse Ox 96 95 Oxygen Delivery Method Room Air Room Air 11/13/22 20:25 11/13/22 21:51 11/13/22 21:15 Temperature 98.1 F Temperature Source Oral Pulse Rate 81 88 89 Respiratory Rate 15 14 16 Respiratory Pattern Blood Pressure 100/60 108/69 100/60 Blood Pressure Mean 73 82 73 Blood Pressure Source Monitor Blood Pressure Position Left Lateral Blood Pressure Location Left Arm Pulse Ox 95 98 98 Oxygen Delivery Method Room Air Room Air Room Air Weight Weight: 149 lb 0.52 oz Body Mass Index (BMI) 20.7 Physical Exam Narrative Physical Examination: General: Awake, alert, oriented x 3 and cooperative, seated upright in ED bed, fatigued, currently no obvious withdrawal symptoms, presented intoxicated. Skin: Normal color, normal turgor, no icterus, no cyanosis except occasional staged ecchymoses. HEENT: AT/NC, EOMI, PERRLA, dry MM, no carotid bruits or JVD noted. Lungs: Diminished, greater bases, appropriate effort, no rales, ronchi or wheezing. Heart: Regular rate with regular rhythm; no gallop, rub audible, appreciated SM. Abdomen: Soft, NTTP, ND, hyperactive BS, + HM. Extremities: No cyanosis, clubbing, or edema, obvious muscle loss. Neurological: Patient awake, alert, oriented as noted, cognitive function appears baseline intact; pupils equally reactive to light and accommodation, cranial nerves II-XII grossly normal, moving all 4 extremities, no focal defici ts, strength moderately global decrease secondary to acute presentation with intoxication, currently no obvious withdrawal symptoms. Psychiatric: Affect appears fatigued, was notable gregarious with staff earlier in the ED, presented intoxicated, admits to ongoing depression and anxiety. Results Lab / Micro Data 11/13/22 19:10 11/13/22 18:57 Labs: Laboratory Results - last 24 hr 11/13/22 18:30: POC Glucose 43 L* 11/13/22 18:57: WBC Cancelled, Corrected WBC Cancelled, RBC Cancelled, Hgb Cancelled, Hct Cancelled, MCV Cancelled, MCH Cancelled, MCHC Cancelled, RDW Std Deviation Cancelled, RDW Coeff of Kalpana Cancelled, Plt Count Cancelled, MPV Cancelled, Immature Gran % (Auto) Cancelled, Neut % (Auto) Cancelled, Lymph % (Auto) Cancelled, Luce % (Auto) Cancelled, Eos % (Auto) Cancelled, Baso % (Auto) Cancelled, Absolute Neuts (auto) Cancelled, Absolute Lymphs (auto) Cancelled, Total Counted Cancelled, Neutrophils % (Manual) Cancelled, Band Neutrophils % Cancelled, Lymphocytes % (Manual) Cancelled, Monocytes % (Manual) Cancelled, Eosinophils % (Manual) Cancelled, Basophils % (Manual) Cancelled, Metamyelocytes % Cancelled, Myelocytes % Cancelled, Promyelocytes % Cancelled, Blast Cells % Cancelled, Plasma Cell % (Manual) Cancelled, Other Cells % Cancelled, Nucleated RBC % Cancelled, Nucleated RBCs/100 WBC Cancelled, Differential Comment Cancelled, Diff Path Review Cancelled, Hypersegmented Neuts Cancelled, Atypical Lymphocytes Cancelled, Reactive Lymphocytes Cancelled, Smudge Cells Cancelled, Toxic Granulation Cancelled, Toxic Vacuolation Cancelled, Dohle Bodies Can celled, Huyen Rods Cancelled, Platelet Estimate Cancelled, Plt Morphology Comment Cancelled, RBC Morphology Cancelled 11/13/22 18:57: RBC Morphology Cancelled, Polychromasia Cancelled, Hypochromasia Cancelled, Poikilocytosis Cancelled, Basophilic Stippling Cancelled, Anisocytos is Cancelled, Microcytosis Cancelled, Macrocytosis Cancelled, Spherocytes Cancelled, Sickle Cells Cancelled, Target Cells Cancelled, Tear Drop Cells Cancelled, Ovalocytes Cancelled, Stomatocytes Cancelled, [place] Bodies Cancelled, Kristofer Cells Cancelled, Bite Cells Cancelled, Crenated Cell Cancelled, Acanthocytes (Spur) Cancelled, Rouleaux Cancelled, Schistocytes Cancelled, Sodium 138, Potassium 3.7, Chloride 100, Carbon Dioxide 28.0, Anion Gap 10, BUN 13, Creatinine 1.01, Estim Creat Clear Calc 74.37, Est GFR (MDRD) Af Amer 97, Est GFR (MDRD) Non-Af 80, BUN/Creatinine Ratio 12.9, Glucose 53 L, Calcium 7.8 L , Total Bilirubin 0.20, AST 81 H, ALT 64 H, Alkaline Phosphatase 128 H, Total Protein 5.9 L, Albumin 2.6 L, Globulin 3.3, Albumin/Globulin Ratio 0.8 L 11/13/22 19:10: WBC 8.5, RBC 3.90 L, Hgb 12.8 L, Hct 38.1 L, MCV 97.7 H, MCH 32.8 H, MCHC 33.6, RDW Std Deviation 52.9 H, RDW Coeff of Kalpana 15.0 H, Plt Count 246, MPV 9.8, Immature Gran % (Auto) 0.500, Neut % (Auto) 72.2 H, Lymph % (Auto) 19.7, Luce % (Auto) 6.3, Eos % (Auto) 0.5, Baso % (Auto) 0.8, Absolute Neuts (auto) 6.2, Absolute Lymphs (auto) 1.68, Nucleated RBC % 0, Urine Opiates Screen NEGATIVE, Urine Methadone Screen NEGATIVE, Ur Barbiturates Screen NEGATIVE, Ur Phencyclidine Scrn NEGATIVE, Ur Amphetamines Screen NEGATIVE, MDMA (Ecstasy) Screen NEGATIVE, U Benzodiazepines Scrn NEGATIVE, Urine Cocaine Screen NEGATIVE, U Cannabinoids Screen NEGATIVE, Ur Drug Screen Comment , Ethyl Alcohol 214.0 11/13/22 19:33: POC Glucose 214 H 11/13/22 20:30: POC Glucose 138 H Assessment & Plan Assessment/Plan (1) Hypoglycemia: PLAN: Plan The patient is a 61 y/o M w/ PMHx: Chronic macrocytic anemia, Diabetes mellitus type II, Hx sick sinus syndrome s/p pacemaker placement, Hx Ascending aortic dissection s/p repair, Valvular heart disease s/p AVR with bioprosthetic valve, HTN, HLD, GERD, Moderate chronic malnutrition related to inadequate protein and caloric intake secondary to alcohol abuse, EtOH abuse with chronic LFT elevation (Reporting 2-3 Tall Boys daily, admitted for acute EtOH detoxification 11/05/21, 11/11/21, 02/01/22, 03/21/22 who presents to the [facility] ED on 11/13/22 with history of call per squad as patient had been having difficulty with administering himself medication and upon their presentation noted that he was hypoglycemic which then prompted him to reveal that he had not eaten for several days and has been losin g weight with the recent passing of his with concern by EMS. #1.? EtOH abuse with chronic LFT elevations/chronic alcoholic hepatitis with intoxication upon presentation, request for detoxification: Will admit to [facility], will initiate and continue on protocol with taper course of Phenobarbital, aung eduled gabapentin for seizure prophylaxis, as needed Catapres, Bentyl, Vistaril, IV fluids, IV antiemetics, Tylenol as needed for pain. Will consult Case management for assistance for transition to next level of rehabilitation care. Mag, phos pending. Maintain on CIWA protocol concurrently. #2.? Anxiety and Depression, untreated, situation and suspect chronic components: Reports worsened with of his spouse, no eating, continued EtOH abuse, from discussions may be escalating, case management consulted, pending. #3. Diabetes mellitus type II with Hypoglycemia with associated encephalopathy: CMP with glucose initially 53 with repeat trending improved to 214 and most recently 138 with dextrose amp x 1 and oral intake. Will hold home regimen until assure BS remain appropriate, add back likely in AM once also assure oral intake as he has not been eating, will maintain ADA diet, maintain in the interim on accu checks w/ ISS. #4.? Valvular heart disease: Patient initially status post mechanical valve replacement eventually transitioned to bioprosthetic AV replacement, 04/02/2020 echocardiogram with EF 70%, severe concentric LVH, trivial MVI, mild TVI, stable appearing bioprosthetic AV apparatus, RVSP 19 mmHg, transmitral Doppler flow suggestive of impaired relaxation LV, ICD/pacer leads identified. #5. History ascending aortic dissection: Status post repair, most recent CT n oted 09/08/2019 with expected appearance of repaired normal diameter of the aorta. #6.? Hypertension: BP low normal upon presentation, poor oral intake history, will hold home regimen temporarily, in the interim will maintain on PRN IV hydralazine. #7.? Hyperlipidemia: We will continue statin therapy. #8.? Hx Sick Sinus Syndrome: s/p pacemaker placement. #9.? Tobacco Abuse: Encouraged cessation, inpatient consultation per RT, NR if desired. #10.? GERD: Will maintain on BID PPI and carafate, PRN mylanta. #11.? Chronic macrocytic anemia: Admission hemoglobin 12.8, baseline hemoglobin vacillates between 12-14, continue vitamin B12/thiamine/folic acid supplementation, trend CBC as needed. #12. DVT prophylaxis: EtOH detoxification admission would consider risk low. Charges/Coding Visit Charges Inpatient E&M: 70715 Init Hosp L3
[2022-11-13 23:12] LABS: Magnesium 2.3 mg/dL (1.6-2.6); Phosphorus 3.7 mg/dL (2.5-4.9)
[2022-11-14] VITALS (9 sets, daily range): BP systolic 98–176; BP diastolic 62–104; PULSE 60–98; RESP 16–18; TEMP 36.6–37.1; O2SAT 94–98; BMI 20.3
[2022-11-14 00:21] LABS: Bedside Glucose 114 mg/dL (74-106)
[2022-11-14] MEDS: Phenobarbital 32.4 MG Tablet 64.8 MG PO ×6 (01:29→21:35)
[2022-11-14] MEDS: Ibuprofen 600 MG Tablet PO ×2 (01:30→10:10)
[2022-11-14] MEDS: Lactated Ringers 1,000 ML 125 ML IV (01:31)
[2022-11-14 01:33] LABS: Bedside Glucose 154 mg/dL (74-106)
[2022-11-14 06:04] LABS: Bedside Glucose 114 mg/dL (74-106)
[2022-11-14 07:57] LABS: Absolute Lymphocyte Count 1.38 X10^3/uL (0.83-4.51); Basophil# 0.09 X10^3/uL; Basophil% 1.5 % (0-1); Eosinophils% 1.7 % (0-5); Hematocrit 33.1 % (40-54); Lymphocyte # 1.38 X10^3/ul (0.83-4.51); Mean Corp Hgb Conc 33.2 g/dL (32-36); Mean Corpuscular Hgb 33.1 pg (27.0-32.0); Mean Corpuscular Volume 99.7 fL (80-94); Mean Platelet Vol. 10.2 fl (6.2-12.0); Monocyte% 6.7 % (0-10); NRBC Flagged by Analyzer 0 % (0-5); Neutrophil % 66.6 % (47-70); Platelet Count 199 K/mm3 (150-450); RBC Distribution Width CV 15.3 % (11.6-14.6); RBC Distribution Width SD 55.8 fl (35.1-43.9); Red Blood Count 3.32 M/mm3 (4.6-6.2)
[2022-11-14 08:37] LABS: ALB/GLOB Ratio 0.9 RATIO (0.9-2.4); AST(SGOT) 86 U/L (15-37); Alanine Aminotransfer ALT/SGPT 57 U/L (16-61); Albumin, Serum 2.3 g/dL (3.2-5.0); Alkaline Phosphatase 117 U/L (45-117); Anion Gap 6 (5-15); BUN 11 mg/dL (7-18); Calcium,Total 7.5 mg/dL (8.5-10.1); Chloride 107 mmol/L (98-107); EST Glomerular Filtration Rate 81 mL/min (>60); Est Glom Filt Rate - Afr Amer 98 mL/min (>60); Estimated Creatinine Clearance 73.44 ml/min; Globulin 2.6 g/dL (2.2-4.2); Glucose 86 mg/dL (74-106); Potassium 4.4 mmol/L (3.5-5.1); Protein, Total 4.9 g/dL (6.4-8.2); Sodium Level 141 mmol/L (136-145)
--- NOTE | 2022-11-14 09:01 | CASEMGMT ---
Social Work SW called pt navigator, she is aware of pt's admission and will see him today. KARAN Weston
[2022-11-14] MEDS: Folic Acid 1 MG Tablet PO (09:43)
[2022-11-14] MEDS: Multivitamins,Therapeutic Tablet 1 TABLET PO (09:43)
[2022-11-14] MEDS: Pantoprazole Sodium 40 MG Tablet PO (09:43)
[2022-11-14] MEDS: Thiamine Hydrochloride 100 MG Tablet PO (09:43)
[2022-11-14] MEDS: Menthol/Lanolin/Calamine/Znox 113 GM Tube 1 APPLIC TOPICAL ×2 (09:44→21:35)
[2022-11-14] MEDS: LORazepam 1 MG Tablet 2 MG PO (10:10)
--- NOTE | 2022-11-14 10:22 | PN_ITS ---
Subjective Subjective Patient seen and examined. He does complain of some anxiety but otherwise feels fine. He denies any tremors, shakes, fever or chills, nausea vomiting or any other symptoms. Review of systems otherwise negative. He has remained hemodynamically stable. Objective Data Objective Data Vital Signs: Vital Signs Temp Pulse Resp BP Pulse Ox O2 Del Method 98 F 87 18 142/104 H 97 Room Air 11/14/22 09:50 11/14/22 09:50 11/14/22 09:50 11/14/22 09:50 11/14/22 09:50 11/14/22 09:50 Oxygen Delivery Method Room Air Weight: 145 lb 11.609 oz Body Mass Index (BMI) 20.3 Intake & Output: Intake and Output for Last 24 Hours 11/12/22 11/13/22 11/14/22 23:59 23:59 23:59 Intake Total 1000 / 1000 500 / 500 Balance 1000 / 1000 500 / 500 Lab / Micro Data 11/14/22 07:15 11/14/22 07:15 Labs: Laboratory Results - last 24 hr 11/13/22 18:30: POC Glucose 43 L* 11/13/22 18:57: WBC Cancelled, Corrected WBC Cancelled, RBC Cancelled, Hgb Cancelled, Hct Cancelled, MCV Cancelled, MCH Cancelled, MCHC Cancelled, RDW Std Deviation Cancelled, RDW Coeff of Kalpana Cancelled, Plt Count Cancelled, MPV Cancelled, Immature Gran % (Auto) Cancelled, Neut % (Auto) Cancelled, Lymph % (Auto) Cancelled, [place] % (Auto) Cancelled, Eos % (Auto) Cancelled, Baso % (Auto) Cancelled, Absolute Neuts (auto) Cancelled, Absolute Lymphs (auto) Cancelled, Total Counted Cancelled, Neutrophils % (Manual) Cancelled, Band Neutrophils % Cancelled, Lymphocytes % (Manual) Cancelled, Monocytes % (Manual) Cancelled, Eosinophils % (Manual) Cancelled, Basophils % (Manual) Cancelled, Metamyelocytes % Cancelled, Myelocytes % Cancelled, Promyelocytes % Cancelled, Blast Cells % Cancelled, Plasma Cell % (Manual) Cancelled, Other Cells % Cancelled, Nucleated RBC % Cancelled, Nucleated RBCs/100 WBC Cancelled, Differential Comment Cancelled, Diff Path Review Cancelled, Hypersegmented Neuts Cancelled, Atypical Lymphocytes Cancelled, Reactive Lymphocytes Cancelled, Smudge Cells Cancelled, Toxic Granulation Cancelled, Toxic Vacuolation Cancelled, Dohle Bodies Cancelled, Huyen Rods Cancelled, Platelet Estimate Cancelled, Plt Morphology Comment Cancelled, RBC Morphology Cancelled 11/13/22 18:57: RBC Morphology Cancelled, Polychromasia Cancelled, Hypochromasia Cancelled, Poikilocytosis Cancelled, Basophilic Stippling Cancelled, Ani socytosis Cancelled, Microcytosis Cancelled, Macrocytosis Cancelled, Spherocytes Cancelled, Sickle Cells Cancelled, Target Cells Cancelled, Tear Drop Cells Cancelled, Ovalocytes Cancelled, Stomatocytes Cancelled, Whites[place] Bodies Cancelled, [place] Cells Cancelled, Bite Cells Cancelled, Crenated Cell Cancelled, Acanthocytes (Spur) Cancelled, Rouleaux Cancelled, Schistocytes Cancelled, Sodium 138, Potassium 3.7, Chloride 100, Carbon Dioxide 28.0, Anion Gap 10, BUN 13, Creatinine 1.01, Estim Creat Clear Calc 74.37, Est GFR (MDRD) Af Amer 97, Est GFR (MDRD) Non-Af 80, BUN/Creatinine Ratio 12.9, Glucose 53 L, Calcium 7.8 L , Total Bilirubin 0.20, AST 81 H, ALT 64 H, Alkaline Phosphatase 128 H, Total Protein 5.9 L, Albumin 2.6 L, Globulin 3.3, Albumin/Globulin Ratio 0.8 L 11/13/22 19:10: WBC 8.5, RBC 3.90 L, Hgb 12.8 L, Hct 38.1 L, MCV 97.7 H, MCH 32.8 H, MCHC 33.6, RDW Std Deviation 52.9 H, RDW Coeff of Kalpana 15.0 H, Plt Count 246, MPV 9.8, Immature Gran % (Auto) 0.500, Neut % (Auto) 72.2 H, Lymph % (Auto) 19.7, [place] % (Auto) 6.3, Eos % (Auto) 0.5, Baso % (Auto) 0.8, Absolute Neuts (auto) 6.2, Absolute Lymphs (auto) 1.68, Nucleated RBC % 0, Phosphorus 3.7, Magnesium 2.3, Urine Opiates Screen NEGATIVE, Urine Methadone Screen NEGATIVE, Ur Barbiturates Screen NEGATIVE, Ur Phencyclidine Scrn NEGATIVE, Ur Amphetamines Screen NEGATIVE, MDMA (Ecstasy) Screen NEGATIVE, U Benzodiazepines Scrn NEGATIVE, Urine Cocaine Screen NEGATIVE, U Cannabinoids Screen NEGATIVE, Ur Drug Screen Comment , Ethyl Alcohol 214.0 11/13/22 19:33: POC Glucose 214 H 11/13/22 20:30: POC Glucose 138 H 11/13/22 21:47: POC Glucose 114 H 11/14/22 00:53: POC Glucose 154 H 11/14/22 05:19: POC Glucose 114 H 11/14/22 07:15: WBC 6.0, RBC 3.32 L, Hgb 11.0 L, Hct 33.1 L, MCV 99.7 H, MCH 33.1 H, MCHC 33.2, RDW Std Deviation 55.8 H, RDW Coeff of Kalpana 15.3 H, Plt Count 199, MPV 10.2, Immature Gran % (Auto) 0.500, Neut % (Auto) 66.6, Lymph % (Auto) 23.0, [place] % (Auto) 6.7, Eos % (Auto) 1.7, Baso % (Auto) 1.5 H, Absolute Neuts (auto) 4.0, Absolute Lymphs (auto) 1.38, Nucleated RBC % 0, Sodium 141, Potassium 4.4, Chloride 107, Carbon Dioxide 28.0, Anion Gap 6, BUN 11, Creatinine 1.00, Estim Creat Clear Calc 73.44, Est GFR (MDRD) Af Amer 98, Est GFR (MDRD) Non-Af 81, BUN/Creatinine Ratio 11.0, Glucose 86, Calcium 7.5 L, Total Bilirubin 0.40, AST 86 H, ALT 57, Alkaline Phosphatase 117, Total Protein 4.9 L, Albumin 2.3 L, Globulin 2.6, Albumin/Globulin Ratio 0.9 Physical Exam Const alert, oriented x3 and no apparent distress General Appearance: cooperative HEENT normocephalic, head/scalp atraumatic, moist oral mucous membranes and oropharynx normal Eyes PERRL Neck no lymphadenopathy, supple and no JVD Lymph Lymphatic: no lymphadenopathy noted and no lymphedema noted Resp normal respiratory effort, normal air movement and clear to auscultation bilaterally Cardio regular rate, regular rhythm, S1 normal heart sound and S2 normal heart sound Cardio Narrative: mechanical aortic valve click with grade 2-3 systolic murmur in the aortic region. GI normal to inspection, nondistended, normoactive bowel sounds, soft to palpation, non-tender and non-distended Extremity normal capillary refill, no clubbing, cyanosis or edema and no calf tenderness Skin General Skin Exam: no breakdown Neuro CN's II-XII intact bilaterally, no focal motor deficits, no sensory deficits noted and deep tendon reflexes 2+ bilaterally Motor Exam: strength 5/5 throughout Psych thought process normal, cooperative and affect normal Appearance: appropriate Assessment & Plan Assessment/Plan (1) Alcohol intoxication: PLAN: Plan #Acute alcohol withdrawal * on alcohol withdrawal protocol with phenobarbital * on thiamine, folic acid and multivite * adjunctive meds for symptomatic relief * monitor CIWA score * #Anxiety and depression * Not on any medication for this. It appears to have worsened since his . Will need follow-up with PCP and psychotherapy on outpatient basis. #Aortic valve disease s/p replacement: Has bioprosthetic aortic valve. Stable. #Type 2 diabetes mellitus with hyperglycemia: * Blood glucose was 53 on admission but resolved. * Lantus on hold. Now eating a regular diet. * He had not been eating at home and this was likely because of the high pool glycemia. * Insulin sliding scale. * Accu-Cheks ACHS. * Last A2C from March 2022 was 8.3. #History of ascending aortic dissection: S/p repair. Stable. #Hypertension: Blood pressure was running low on admission. IV hydralazine as needed. Will resume blood pressure medications. #History of sick sinus syndrome s/p pacemaker: Stable #GERD: On PPI and Carafate DVT prophylaxis: Low risk. Encourage ambulation. Charges/Coding Visit Charges Inpatient E&M: 77948 Subs Hosp L2
--- NOTE | 2022-11-14 12:06 | ADDICTION ---
This greeting card writer met with PT to conduct ASAM, MSE, AUDIT, DUDIT assessments and to plan for d/c. PT A+Ox4 and participated actively. All assessments completed, placed in PT's chart. PT plans to f/u with individual counselor at [facility] for outpatient treatment services after his time served in [employer]. PT did not indicate a need for transportation post d/c from [facility].
[2022-11-14] MEDS: Insulin Lispro 100 UNIT/ML INSULN.PEN SC ×3 (13:16→21:35)
[2022-11-14 13:29] LABS: Bedside Glucose 257 mg/dL (74-106)
[2022-11-14] MEDS: hydrALAZINE 20 MG/ML Vial 10 MG IV (16:17)
[2022-11-14 19:31] LABS: Bedside Glucose 320 mg/dL (74-106)
[2022-11-14 21:28] LABS: Bedside Glucose 266 mg/dL (74-106)
[2022-11-14] MEDS: Atorvastatin Calcium 10 MG Tablet PO (21:36)
[2022-11-15] VITALS (10 sets, daily range): BP systolic 94–154; BP diastolic 62–102; PULSE 58–113; RESP 16–18; TEMP 36.4–37.1; O2SAT 95–98
[2022-11-15] MEDS: Phenobarbital 32.4 MG Tablet 64.8 MG PO ×4 (03:33→17:46)
[2022-11-15] MEDS: Insulin Lispro 100 UNIT/ML INSULN.PEN SC ×3 (06:05→22:20)
[2022-11-15 06:38] LABS: Bedside Glucose 283 mg/dL (74-106)
[2022-11-15] MEDS: Ibuprofen 600 MG Tablet PO (09:17)
--- NOTE | 2022-11-15 09:19 | PN_ITS ---
Subjective Subjective Patient seen and examined. He has no complaints today and had an uneventful night. Review of systems is otherwise negative. He is tachycardic today. He is on room air. Objective Data Objective Data Vital Signs: Vital Signs Temp Pulse Resp BP Pulse Ox O2 Del Method 97.5 F L 113 H 16 154/102 H 98 Room Air 11/15/22 05:43 11/15/22 05:43 11/15/22 05:43 11/15/22 05:43 11/15/22 05:43 11/15/22 05:43 Oxygen Delivery Method Room Air Weight: 145 lb 11.609 oz Body Mass Index (BMI) 20.3 Intake & Output: Intake and Output for Last 24 Hours 11/13/22 11/14/22 11/15/22 23:59 23:59 23:59 Intake Total 1000 / 1000 2519.5 / 2519.5 480 / 480 Balance 1000 / 1000 2519.5 / 2519.5 480 / 480 Lab / Micro Data 11/14/22 07:15 11/14/22 07:15 Labs: Laboratory Results - last 24 hr 11/14/22 13:09: POC Glucose 257 H 11/14/22 16:16: POC Glucose 320 H 11/14/22 21:08: POC Glucose 266 H 11/15/22 06:02: POC Glucose 283 H Physical Exam Const alert, oriented x3 and no apparent distress General Appearance: cooperative and well developed HEENT normocephalic, head/scalp atraumatic, moist oral mucous membranes and oropharynx normal Eyes PERRL and EOMs intact bilaterally Neck no lymphadenopathy, supple and no JVD Lymph Lymphatic: no lymphadenopathy noted and no lymphedema noted Resp normal respiratory effort, normal air movement and clear to auscultation bilaterally Cardio regular rhythm, S1 normal heart sound and S2 normal heart sound Cardio Narrative: mechanical aortic valve click with grade 2-3 systolic murmur in the aortic region. tachycardic GI normal to inspection, nondistended, normoactive bowel sounds, soft to palpation, non-tender and non-distended Extremity normal capillary refill, no clubbing, cyanosis or edema and no calf tenderness Skin General Skin Exam: no breakdown Neuro CN's II-XII intact bilaterally, no focal motor deficits, no sensory deficits n oted and deep tendon reflexes 2+ bilaterally Motor Exam: strength 5/5 throughout Psych thought process normal, cooperative and affect normal Appearance: appropriate Assessment & Plan Assessment/Plan (1) Alcohol intoxication: PLAN: Plan #Acute alcohol withdrawal * on alcohol withdrawal protocol with phenobarbital * on thiamine, folic acid and multivite * adjunctive meds for symptomatic relief * monitor CIWA score * #Anxiety and depression * Not on any medication for this. It appears to have worsened since his . Will need follow-up with PCP and psychotherapy on outpatient basis. #Aortic valve disease s/p replacement: Has bioprosthetic aortic valve. Stable. #Type 2 diabetes mellitus with hyperglycemia: * Blood glucose was 53 on admission but resolved. * Lantus on hold. Now eating a regular diet. * He had not been eating at home and this was likely because of the hypoglycemia. * Insulin sliding scale. * Accu-Cheks ACHS. * Last A2C from March 2022 was 8.3. * will resume lantus. ON , will resume #Tachycardia: HR is 113. Metoprolol had been on hold. Will resume metoprolol and monitor. #History of ascending aortic dissection: S/p repair. Stable. #Hypertension: Blood pressure was running low on admission. IV hydralazine as needed. Will resume blood pressure medications- on metoprolol, amlodipine nad #History of sick sinus syndrome s/p pacemaker: Stable #GERD: On PPI and Carafate DVT prophylaxis: Low risk. Encourage ambulation. Charges/Coding Visit Charges Inpatient E&M: 77099 Subs Hosp L2
[2022-11-15] MEDS: Gabapentin 300 MG Capsule PO ×2 (09:22→11:47)
[2022-11-15] MEDS: Multivitamins,Therapeutic Tablet 1 TABLET PO (09:24)
[2022-11-15] MEDS: Pantoprazole Sodium 40 MG Tablet PO (09:24)
[2022-11-15] MEDS: Folic Acid 1 MG Tablet PO (09:24)
[2022-11-15] MEDS: Thiamine Hydrochloride 100 MG Tablet PO (09:24)
[2022-11-15] MEDS: amLODIPine 5 MG Tablet PO (11:30)
[2022-11-15] MEDS: Metoprolol(XL)Succ 50 MG Tablet PO (11:31)
[2022-11-15] MEDS: Potassium Chloride Oral Tablet 10 MEQ 40 MEQ PO (11:31)
[2022-11-15] MEDS: Empagliflozin 25 MG Tablet PO (11:33)
[2022-11-15] MEDS: Ramipril 10 MG Capsule PO (11:33)
[2022-11-15] MEDS: hydroCHLOROthiazide 12.5mg 12.5 MG PO (11:33)
[2022-11-15] MEDS: Insulin Glargine-YFGN 100 UNIT/ML Pen 10 UNIT SC (11:34)
[2022-11-15] MEDS: Acetaminophen 325 MG Tablet 650 MG PO (11:46)
[2022-11-15] MEDS: hydrOXYzine PAM 25 MG Capsule 50 MG PO (11:46)
[2022-11-15 12:44] LABS: Bedside Glucose 294 mg/dL (74-106)
[2022-11-15] MEDS: metFORMIN (XR) 500 MG Tablet PO (17:55)
[2022-11-15 19:22] LABS: Bedside Glucose 117 mg/dL (74-106)
[2022-11-15] MEDS: Atorvastatin Calcium 10 MG Tablet PO (22:22)
[2022-11-15 23:56] LABS: Bedside Glucose 183 mg/dL (74-106)
[2022-11-16] VITALS (7 sets, daily range): BP systolic 123–137; BP diastolic 78–86; PULSE 60–87; RESP 18; TEMP 36.5–36.9; O2SAT 96–98
[2022-11-16] MEDS: Phenobarbital 32.4 MG Tablet 64.8 MG PO ×3 (00:54→08:34)
[2022-11-16] MEDS: hydrALAZINE 25 MG Tablet PO (05:29)
[2022-11-16] MEDS: Dicyclomine 10 MG Capsule 20 MG PO (05:29)
[2022-11-16] MEDS: Insulin Lispro 100 UNIT/ML INSULN.PEN SC (06:36)
[2022-11-16] MEDS: Ibuprofen 600 MG Tablet PO (06:43)
[2022-11-16 07:02] LABS: Bedside Glucose 206 mg/dL (74-106)
[2022-11-16] MEDS: Multivitamins,Therapeutic Tablet 1 TABLET PO (08:18)
[2022-11-16] MEDS: Thiamine Hydrochloride 100 MG Tablet PO (08:18)
[2022-11-16] MEDS: Folic Acid 1 MG Tablet PO (08:18)
[2022-11-16] MEDS: Potassium Chloride Oral Tablet 10 MEQ 40 MEQ PO (08:19)
[2022-11-16] MEDS: metFORMIN (XR) 500 MG Tablet PO (08:19)
[2022-11-16] MEDS: Gabapentin 300 MG Capsule PO (08:29)
--- NOTE | 2022-11-16 10:45 | PCM.DC.SUM ---
Providers Date of Admission: 11/13/22 Date of Discharge: 11/16/22 Primary Care Physician: Dk Pathak, SUSAN-C Reason For Visit: ETOH DETOXIFICATION Diagnosis Discharge Diagnosis (1) Alcohol intoxication: Status: Acute Code(s): F10.929 - Alcohol use, unspecified with intoxication, unspecified Medications at Discharge Home Medications omeprazole 40 mg capsule,delayed release 40 mg PO DAILY reflux 06/10/18 metformin 500 mg tablet 1,000 mg PO DAILY diabetes 01/21/19 amlodipine 5 mg tablet 5 mg PO DAILY HEART 10/17/20 atorvastatin 10 mg tablet 10 mg PO DAILY CHOLESTEROL 10/17/20 hydralazine 25 mg tablet 25 mg PO TID BP 10/17/20 hydrochlorothiazide 12.5 mg tablet 12.5 mg PO DAILY BP 10/17/20 ramipril 10 mg capsule 10 mg PO BID BP 10/17/20 dapagliflozin propanediol 10 mg tablet (Farxiga) 10 mg PO DAILY DIABETES 09/30/21 multivitamin 1 tab PO DAILY supplement 11/11/21 potassium chloride 10 mEq tablet,extended release(part/cryst) 20 meq PO DAILY supplement 11/11/21 insulin detemir U-100 100 unit/mL (3 mL) subcutaneous pen 8 unit (0.08 mL) subcut DAILY DM #3 mL 02/04/22 insulin lispro 100 unit/mL subcutaneous pen (Humalog KwikPen (U-100) Insulin) 5 unit subcut TIDAC dm 03/21/22 potassium chloride 10 mEq capsule,extended release 40 meq (4 x 10 mEq) PO DAILY 2 days #8 caps 07/20/22 metoprolol succinate 50 mg tablet,extended release 24 hr 50 mg PO BID #60 tabs 10/15/22 ondansetron 4 mg disintegrating tablet 4 mg PO Q6H PRN nausea and vomiting #10 tabs 11/01/22 gabapentin 300 mg capsule 300 mg PO DAILY neruropathic pain 11/14/22 insulin glargine 100 unit/mL (3 mL) subcutaneous pen (Lantus Solostar U-100 Insulin) 10 unit subcut DAILY sugar 11/14/22 metformin 500 mg tablet,extended release 24 hr 500 mg PO BID diabetes 11/15/22 Hospital Course Operations None Procedures None Summary of Care Provided Minutes Spent on Discharge: 25 Hospital Course: Mr. Melendrez is a 62-year-old white male who presented to the emergency department at [facility] on 11/13/2022 requesting detoxification from alcohol. On admission he was reporting drinking 2-3 tall boys a daily and has been admitted for alcohol detoxification multiple times in the last calendar year. EMS was called as the patient was having difficulty administering his home medications. He has multiple chronic medical issues. Upon squad arrival, he was noted to be hypoglycemic and he revealed to the EMS that he had not eaten in several days and had been losing weight. His had recently. Upon ED arrival the patient was visibly intoxicated. His vitals were unremarkable. His CBC was unremarkable. His CMP was overall unremarkable other than him having initial blood glucose level of 53 which improved with treatment. His urine drug screen was negative and his ethyl alcohol level was 214. He was given an amp of D5 in the emergency department as well as IV fluids and Zofran and after further discussion the patient requested detoxification from alcohol and was admitted to the hospital. Overall his detox was unremarkable. He was maintained on his home medications and met with 180. The plan is for outpatient follow-up. We have encouraged close follow-up as his relapse potential is high. He voiced understanding. He was able to be discharged home in stable condition with no medication changes on 11/16/2022. Discharge diagnoses: Acute alcohol intoxication-resolved Acute alcohol withdrawal-resolved Alcohol dependence Chronic macrocytic anemia DM-2 History of sick sinus syndrome status post pacemaker History of a sending aortic dissection status post repair Valvular heart disease status post AVR with bioprosthetic valve HTN HPL GERD My chronic malnutrition Alcoholic hepatitis Diabetic neuropathy Depression Physical Exam Const alert, oriented x3, no apparent distress and no limitations; Negative for healthy appearing or well nourished Constitutional Narrative: Thin, upper middle-aged, white male lying in bed, appears comfortable and nontoxic, interacts normally, pleasant General Appearance: cooperative, comfortable, well kempt and well developed Exam Limitations: no limitations Nutritional Appearance: thin HEENT normocephalic, head/scalp atraumatic and hearing grossly normal bilaterally HEENT Narrative: Dentition is fair, Mallampati is 2, no thrush Resp normal respiratory effort, no retractions, no use of accessory muscles and clear to auscultation bilaterally Auscultation: Negative for rales, rhonchi or wheezes Cardio regular rate, regular rhythm, S1 normal heart sound, S2 normal heart sound, no murmurs, no rub, no gallops and no clicks GI normal to inspection, nondistended, normoactive bowel sounds, soft to palpation and non-tender Extremity no clubbing, cyanosis or edema Extremity Narrative: Pedal pulses are 2+ Neuro oriented x3, CN's II-XII intact bilaterally, moves all extremities and no focal motor deficits Speech: speech normal Psych affect normal Psych Narrative: Eye contact is good, patient interacts normally, pleasant Weight / BMI Weight Weight: 66.1 kg Body Mass Index (BMI) 20.3 ABG / Lab / Microbiology Data 11/14/22 07:15 11/14/22 07:15 Laboratory: Laboratory Results - last 24 hr 11/15/22 11:35: POC Glucose 294 H 11/15/22 17:44: POC Glucose 117 H 11/15/22 22:20: POC Glucose 183 H 11/16/22 06:36: POC Glucose 206 H D/C Instructions Discharge Diet: Low fat / Low cholesterol and 2000 Calorie Control Diet Discharge Activity: Return to Normal Activity Meaningful Use Info Meaningful Use Diagnoses (Choose all that apply): None applicable Discharge Plan Admission Admit Date/Time: 11/13/22 22:31 Primary Reason for Your Visit: Alcohol detox Attending Provider: Melonie De La Rosa Primary Care Provider: Dk Pathak [employer] P[employer]SEMBLER Consulting Providers: Iman Aguayo; Ashley Alvarado Instructions Additional Instructions / Restrictions: 1. Please follow-up with 180 as directed to continue to pursue sobriety Discharge Orders/Prescriptions Prescriptions: Continued omeprazole 40 mg capsule,delayed release(DR/EC) 40 mg PO DAILY hydrochlorothiazide 12.5 mg tablet 12.5 mg PO DAILY atorvastatin 10 mg tablet 10 mg PO DAILY amlodipine 5 mg tablet 5 mg PO DAILY ramipril 10 mg capsule 10 mg PO BID hydralazine 25 mg tablet 25 mg PO TID metformin 500 MG tablet 1,000 mg PO DAILY Farxiga 10 mg Tablet 10 mg PO DAILY Hold Instructions: until you speak with your diabetic clinic or PCP. multivitamin Tablet 1 tab PO DAILY Rx Instructions: over the counter potassium chloride 10 mEq tablet,ER particles/crystals 20 meq PO DAILY insulin detemir U-100 100 unit/mL (3 mL) Insulin Pen 8 unit SUBCUT DAILY Qty: 3 0RF insulin lispro [Humalog KwikPen Insulin] 100 unit/mL insulin pen 5 unit subcut TIDAC potassium chloride 10 mEq capsule, extended release 40 meq PO DAILY 2 Days Qty: 8 0RF ondansetron 4 mg tablet,disintegrating 4 mg PO Q6H PRN (Reason: nausea and vomiting) Qty: 10 0RF insulin glargine [Lantus Solostar U-100 Insulin] 100 unit/mL (3 mL) insulin pen 10 unit subcut DAILY gabapentin 300 mg Capsule 300 mg PO DAILY Rx Instructions: for neuropathy from diabetes metformin 500 mg tablet extended release 24 hr 500 mg PO BID Patient Comments: TAKE ONE TABLET BY MOUTH TWICE A DAY metoprolol succinate 50 mg tablet extended release 24 hr 50 mg PO BID Qty: 60 11RF Referrals / Follow Up: Dk Pathak [employer] P[employer] ASSEMBLER, [employer] ASSEMBLER-C [Primary Care Provider] - 11/26/22 11:00 am Disposition Disposition (needs filled in before D/C Order can be placed): Home, Self Care Charges/Coding Visit Charges Inpatient E&M: 29862 Disch Hosp
--- NOTE | 2022-11-16 11:12 | PHA.DC.MR.R ---
Pharmacy [facility] Reconciliation Pharmacy Service has performed discharge medication reconciliation for this patient. The patient's discharge medication list was reviewed for discrepancies and discrepancies were resolved. Medications at Discharge Home Medications omeprazole 40 mg capsule,delayed release 40 mg PO DAILY reflux 06/10/18 metformin 500 mg tablet 1,000 mg PO DAILY diabetes 01/21/19 amlodipine 5 mg tablet 5 mg PO DAILY HEART 10/17/20 atorvastatin 10 mg tablet 10 mg PO DAILY CHOLESTEROL 10/17/20 hydralazine 25 mg tablet 25 mg PO TID BP 10/17/20 hydrochlorothiazide 12.5 mg tablet 12.5 mg PO DAILY BP 10/17/20 ramipril 10 mg capsule 10 mg PO BID BP 10/17/20 dapagliflozin propanediol 10 mg tablet (Farxiga) 10 mg PO DAILY DIABETES 09/30/21 multivitamin 1 tab PO DAILY supplement 11/11/21 potassium chloride 10 mEq tablet,extended release(part/cryst) 20 meq PO DAILY supplement 11/11/21 insulin detemir U-100 100 unit/mL (3 mL) subcutaneous pen 8 unit (0.08 mL) subcut DAILY DM #3 mL 02/04/22 insulin lispro 100 unit/mL subcutaneous pen (Humalog KwikPen (U-100) Insulin) 5 unit subcut TIDAC dm 03/21/22 potassium chloride 10 mEq capsule,extended release 40 meq (4 x 10 mEq) PO DAILY 2 days #8 caps 07/20/22 metoprolol succinate 50 mg tablet,extended release 24 hr 50 mg PO BID #60 tabs 10/15/22 ondansetron 4 mg disintegrating tablet 4 mg PO Q6H PRN nausea and vomiting #10 tabs 11/01/22 gabapentin 300 mg capsule 300 mg PO DAILY neruropathic pain 11/14/22 insulin glargine 100 unit/mL (3 mL) subcutaneous pen (Lantus Solostar U-100 Insulin) 10 unit subcut DAILY sugar 11/14/22 metformin 500 mg tablet,extended release 24 hr 500 mg PO BID diabetes 11/15/22
[2022-11-16] MEDS: Pantoprazole Sodium 40 MG Tablet PO (11:15)
[2022-11-16] MEDS: Ramipril 10 MG Capsule PO (11:15)
[2022-11-16] MEDS: amLODIPine 5 MG Tablet PO (11:16)
[2022-11-16] MEDS: Insulin Glargine-YFGN 100 UNIT/ML Pen 10 UNIT SC (11:16)
[2022-11-16] MEDS: Metoprolol(XL)Succ 50 MG Tablet PO (11:16)
[2022-11-16] MEDS: Empagliflozin 25 MG Tablet PO (11:17)
[2022-11-16] MEDS: hydroCHLOROthiazide 12.5mg 12.5 MG PO (11:17)
== END 2022-11-16 11:21 | disposition home or self-care (01) | DRG 775 ==
LOC: ED 21:50 → MS3 22:39
PROVIDERS: Student in an Organized Health Care Education/Training Program; Admitting Provider Family Medicine; Emergency Provider Emergency Medicine; PCP Nurse Practitioner Family; Visit Provider Internal Medicine
DX: F10.229 Alcohol dependence with intoxication, unspecified (principal); G93.40 Encephalopathy, unspecified; E11.649 Type 2 diabetes mellitus with hypoglycemia without coma; F10.239 Alcohol dependence with withdrawal, unspecified; E11.40 Type 2 diabetes mellitus with diabetic neuropathy, unspecified; D53.9 Nutritional anemia, unspecified; E78.00 Pure hypercholesterolemia, unspecified; F17.210 Nicotine dependence, cigarettes, uncomplicated; Z79.4 Long term (current) use of insulin; K70.10 Alcoholic hepatitis without ascites; I10 Essential (primary) hypertension; F32.A Depression, unspecified; K21.9 Gastro-esophageal reflux disease without esophagitis; F41.9 Anxiety disorder, unspecified; Z95.0 Presence of cardiac pacemaker; Z79.899 Other long term (current) drug therapy; Z79.84 Long term (current) use of oral hypoglycemic drugs; Y90.8 Blood alcohol level of 240 mg/100 ml or more
CPT/HCPCS: 36415; 80053; 80307; 82077; 82962; 83735; 84100; 85025; 93005; 99285; 99406; J7030; J7120; A4216; J2405

== ENCOUNTER 2023-04-20 11:25 | Inpatient (IN) | payer MEDICAID, SELFPAY ==
[2023-04-20] VITALS (8 sets, daily range): BP systolic 112–157; BP diastolic 80–109; PULSE 91–125; RESP 16–20; TEMP 36.4–36.8; O2SAT 93–100; BMI 19.6; BMI 19.7
--- NOTE | 2023-04-20 11:39 | CT_ITS ---
STUDY: CT ABDOMEN AND PELVIS WITH CONTRAST REASON FOR EXAM: Male, 62 years old. Abd pain No acute disease. RADIATION DOSAGE (If Supplied By Facility): CTDIvol = ( 10.30 ) mGy, DLP = ( 541.86 ) mGycm TECHNIQUE: Transaxial images were obtained from the dome of the diaphragm to the symphysis pubis without oral contrast. IV 100mL Isovue-300 was administered. Sagittal and coronal images were reconstructed. Individualized dose optimization techniques were used for this CT. COMPARISON: None. FINDINGS: Small right pleural effusion with basilar atelectasis. The visualized portions of the heart are within normal limits. Hepatomegaly. Diffuse fatty infiltration of the liver. Normal gallbladder and extrahepatic biliary system. Normal spleen. There are pancreatic calcifications in the distribution of the ducts consistent with chronic pancreatitis. Diffuse pancreatic atrophy. Small amount of ascites. Normal bilateral adrenal glands. Normal right kidney. Normal left kidney. Normal visualized stomach. Normal small intestine. Normal colon. The appendix is visualized and appears normal. There is diffuse atherosclerotic calcification of the abdominal aorta, without a demonstrated aneurysm. Normal inferior vena cava. Normal retroperitoneum. Normal urinary bladder. Prior right inguinal hernia repair with a mesh. There are degenerative changes of the visualized lumbar spine. CT/Abdomen/Pelvis W IV Cont ONLY IMPRESSION: Diffuse atrophy of the pancreas with calcifications. Hepatomegaly and diffuse fatty infiltration of liver. Ascites. Status post cholecystectomy. Small right pleural effusion with basilar atelectasis. Electronically Signed: Carlos Campos MD at 15:46 EDT ,
--- NOTE | 2023-04-20 11:40 | EDS_ITS ---
HPI HPI - GI History of Present Illness Chief Complaint: Abd Pain Informant: patient Narrative Narrative: Worsening abdominal pain epigastric today. Has had it for months. History of alcoholic pancreatitis. Cannot tolerate when. He drinks reported 2 tall boys a day. Last drink nearly 24 hours ago. He has had alcohol withdrawal seizures in the past however none recently. Has intermittent tremors. Denies any current abdominal surgery. However states his outpatient workup upper endoscopy and lower endoscopy pending in the next couple weeks. Denies any black or bloody stools. Currently also requesting alcohol detox. He states he has been through the program the past 2 relapse a month ago. He was sober for 6 months. He was vomiting clear fluids today. Currently nauseated. Prior similar symptoms: Yes PFSH PFS Medical History AAA (abdominal aortic aneurysm) Admitted to alcohol detoxification center Adrenal nodule Alcohol dependence Alcoholism Anxiety Ascending aortic dissection (~2005) Cardiac pacemaker in situ (~06/2016) Diabetes Diabetes mellitus, type II Essential hypertension Hiatal hernia History of diabetes mellitus HTN (hypertension) Hx of hypercholesterolemia Left carotid bruit Myocardial infarct Non-sustained ventricular tachycardia Pacemaker Pacemaker Pancreatitis Pure hypercholesterolemia Right bundle branch block (RBBB) Sick sinus syndrome Smoker Substance abuse SVT (supraventricular tachycardia) Thoracic aortic aneurysm Tobacco use Home Medications omeprazole 40 mg capsule,delayed release 40 mg PO DAILY reflux 06/10/18 [History Last Taken 11/11/21] metformin 500 mg tablet 1,000 mg PO DAILY diabetes 01/21/19 [History Last Taken 11/11/21] amlodipine 5 mg tablet 5 mg PO DAILY HEART 10/17/20 [History Last Taken 11/11/21] atorvastatin 10 mg tablet 10 mg PO DAILY CHOLESTEROL 10/17/20 [History Last Taken 11/11/21] hydralazine 25 mg tablet 25 mg PO TID BP 10/17/20 [History Last Taken 11/11/21] hydrochlorothiazide 12.5 mg tablet 12.5 mg PO DAILY BP 10/17/20 [History Last Taken 11/11/21] ramipril 10 mg capsule 10 mg PO BID BP 10/17/20 [History Last Taken 11/11/21] dapagliflozin propanediol 10 mg tablet (Farxiga) 10 mg PO DAILY DIABETES 09/30/21 [History Last Taken 11/11/21] multivitamin 1 tab PO DAILY supplement 11/11/21 [History Last Taken 11/10/21] potassium chloride 10 mEq tablet,extended release(part/cryst) 20 meq PO DAILY supplement 11/11/21 [History Last Taken Unknown] insulin detemir U-100 100 unit/mL (3 mL) subcutaneous pen 8 unit (0.08 mL) subcut DAILY DM #3 mL 02/04/22 [Rx Last Taken 11/11/21] insulin lispro 100 unit/mL subcutaneous pen (Humalog KwikPen (U-100) Insulin) 5 unit subcut TIDAC dm 03/21/22 [History Last Taken Unknown] potassium chloride 10 mEq capsule,extended release 40 meq (4 x 10 mEq) PO DAILY 2 days #8 caps 07/20/22 [Rx Last Taken Unknown] metoprolol succinate 50 mg tablet,extended release 24 hr 50 mg PO BID #60 tabs 10/15/22 [Rx Last Taken Unknown] ondansetron 4 mg disintegrating tablet 4 mg PO Q6H PRN nausea and vomiting #10 tabs 11/01/22 [Rx Last Taken Unknown] gabapentin 300 mg capsule 300 mg PO DAILY neruropathic pain 11/14/22 [History Last Taken Unknown] insulin glargine 100 unit/mL (3 mL) subcutaneous pen (Lantus Solostar U-100 Insulin) 10 unit subcut DAILY sugar 11/14/22 [History Last Taken Unknown] metformin 500 mg tablet,extended release 24 hr 500 mg PO BID diabetes 11/15/22 [History Last Taken Unknown] Allergy/AdvReac Type Severity Reaction Status Date / Time No Known Allergies Allergy Verified 04/20/23 11:33 Family History Father CAD (coronary artery disease) Mother Dementia Surgical History H/O aortic valve replacement H/O cardiac catheterization History of aortic aneurysm repair (~2017) History of aortic valve replacement with bioprosthetic valve (~2017) History of cataract surgery History of hernia repair Social History Smoking Status: Current every day smoker tobacco type: cigarettes alcohol intake: current alcohol intake frequency: 0-2 drinks per day details: Reports currently ~ 2 tall boys daily. substance use type: former substance user caffeine: Yes Type: coffee Number of servings: 3 ROS ROS ED Constitutional Constitutional ED: Denies chills, fever(s) or sweats Eyes Eyes: Denies change in vision ENT ENT ED: Denies dysphagia or sore throat Cardiovascular Cardiovascular: Denies chest pain, leg edema, palpitations or racing heartbeat Respiratory/Chest Respiratory/Chest: Denies cough, dyspnea or dyspnea on exertion Gastrointestinal Gastrointestinal: Reports abdominal pain, nausea and vomiting; Denies diarrhea Genitourinary Genitourinary ED: Denies dysuria, hematuria or urinary frequency Musculoskeletal Musculoskeletal: Denies back pain, extremity pain or neck pain Integumentary Denies rash or wounds Neurologic Neurologic: Denies headache(s), paresthesias or weakness EXAM Physical Exam Const Vital Signs: 04/20/23 11:29 Temperature 97.6 F L Temperature Source Oral Pulse Rate 125 H Respiratory Rate 16 Blood Pressure 154/107 H Blood Pressure Mean 122 Pulse Ox 97 Oxygen Delivery Method Room Air Positive well nourished and well developed General Appearance ED: well developed and NAD HEENT Reports moist mucous membranes normocephalic and atraumatic Eyes PERRL, EOMs intact bilaterally and conjunctivae normal General Eye ED: Yes normal appearance of both eyes Neck no lymphadenopathy and supple General: Negative for tenderness Chest Wall Chest: Negative for tenderness Resp normal respiratory effort and normal air movement Effort and Inspection: symmetric chest movement; Negative for respiratory distress Cardio regular rhythm and no murmurs Rate: tachycardic Peripheral Pulses: pulses 2+ throughout GI GI Narrative: Tender epigastric mid abdominal. Negative Hightower's McBurney's tenderness. Palpation: Negative for guarding or rebound tenderness present Back/Spine no CVA tenderness and no thoracic nor lumbar tenderness Extremity normal to inspection General Extremety ED: Negative for edema or tenderness General Extremity: Negative for edema Neuro oriented x3 and no sensory deficits noted Sensorium / Orientation: awake and alert Skin no rashes or lesions noted and no wounds MDM MDM MDM Narrative Medical decision making narrative: Interventions / MDM: Differential diagnosis: Diagnosis considered but do not suspect: N/A My EKG interpretation: N/A Imaging independently reviewed and interpreted by myself: N/A External documents reviewed: N/A Test considered but not ordered:N/A ED course: Tachycardic on arrival. Abdominal pain for months worsening today. Abdominal labs ordered CT scan. Fluids pain medicines antiemetics. Will plan for admission as he would like alcohol detox. Re-evaluation: stable Disposition discussed with patient/family/significant other: Case discussed with consulting clinician: N/A This note was generated with [employer] dictation software. It may contain incorrect words, spelling, and punctuation that were not noted in checking the note before signing. Discharge Plan Triage Chief Complaint: Abd Pain Other Complaint: Substance Abuse ED Provider: Chris Davila Dx/Rx/DC Orders Prescriptions: No Action omeprazole 40 mg capsule,delayed release(DR/EC) 40 mg PO DAILY hydrochlorothiazide 12.5 mg tablet 12.5 mg PO DAILY atorvastatin 10 mg tablet 10 mg PO DAILY amlodipine 5 mg tablet 5 mg PO DAILY ramipril 10 mg capsule 10 mg PO BID hydralazine 25 mg tablet 25 mg PO TID metformin 500 MG tablet 1,000 mg PO DAILY Farxiga 10 mg Tablet 10 mg PO DAILY Hold Instructions: until you speak with your diabetic clinic or PCP. multivitamin Tablet 1 tab PO DAILY Rx Instructions: over the counter potassium chloride 10 mEq tablet,ER particles/crystals 20 meq PO DAILY insulin detemir U-100 100 unit/mL (3 mL) Insulin Pen 8 unit SUBCUT DAILY Qty: 3 0RF insulin lispro [Humalog KwikPen Insulin] 100 unit/mL insulin pen 5 unit subcut TIDAC potassium chloride 10 mEq capsule, extended release 40 meq PO DAILY 2 Days Qty: 8 0RF ondansetron 4 mg tablet,disintegrating 4 mg PO Q6H PRN (Reason: nausea and vomiting) Qty: 10 0RF insulin glargine [Lantus Solostar U-100 Insulin] 100 unit/mL (3 mL) insulin pen 10 unit subcut DAILY gabapentin 300 mg Capsule 300 mg PO DAILY Rx Instructions: for neuropathy from diabetes metformin 500 mg tablet extended release 24 hr 500 mg PO BID Patient Comments: TAKE ONE TABLET BY MOUTH TWICE A DAY metoprolol succinate 50 mg tablet extended release 24 hr 50 mg PO BID Qty: 60 11RF Primary Care Provider: Dk Pathak NP Referrals: Dk Pathak NP, HOSPITAL ADMINISTRATIVE ASSISTANT-C [Primary Care Provider] -
--- NOTE | 2023-04-20 11:40 | ED.VIS.GI ---
HPI HPI - GI History of Present Illness Chief Complaint: Abd Pain Informant: patient Narrative Narrative: Worsening abdominal pain epigastric today. Has had it for months. History of alcoholic pancreatitis. Cannot tolerate when. He drinks reported 2 tall boys a day. Last drink nearly 24 hours ago. He has had alcohol withdrawal seizures in the past however none recently. Has intermittent tremors. Denies any current abdominal surgery. However states his outpatient workup upper endoscopy and lower endoscopy pending in the next couple weeks. Denies any black or bloody stools. Currently also requesting alcohol detox. He states he has been through the program the past 2 relapse a month ago. He was sober for 6 months. He was vomiting clear fluids today. Currently nauseated. Prior similar symptoms: Yes PFSH PFS Medical History AAA (abdominal aortic aneurysm) Admitted to alcohol detoxification center Adrenal nodule Alcohol dependence Alcoholism Anxiety Ascending aortic dissection (~2005) Cardiac pacemaker in situ (~06/2016) Diabetes Diabetes mellitus, type II Essential hypertension Hiatal hernia History of diabetes mellitus HTN (hypertension) Hx of hypercholesterolemia Left carotid bruit Myocardial infarct Non-sustained ventricular tachycardia Pacemaker Pacemaker Pancreatitis Pure hypercholesterolemia Right bundle branch block (RBBB) Sick sinus syndrome Smoker Substance abuse SVT (supraventricular tachycardia) Thoracic aortic aneurysm Tobacco use Home Medications omeprazole 40 mg capsule,delayed release 40 mg PO DAILY ACID REFLUX 06/10/18 [History Last Taken 04/19/23] amlodipine 5 mg tablet 5 mg PO DAILY BLOOD PRESSURE 10/17/20 [History Last Taken 04/19/23] atorvastatin 10 mg tablet 10 mg PO DAILY CHOLESTEROL 10/17/20 [History Last Taken 04/19/23] hydralazine 25 mg tablet 25 mg PO TID BP 10/17/20 [History Last Taken 04/19/23] hydrochlorothiazide 12.5 mg tablet 12.5 mg PO DAILY BLOOD PRESSURE 10/17/20 [History Last Taken 11/11/21] ramipril 10 mg capsule 10 mg PO BID BLOOD PRESSURE 10/17/20 [History Last Taken 11/11/21] dapagliflozin propanediol 10 mg tablet (Farxiga) 10 mg PO DAILY DIABETES 09/30/21 [History Last Taken 04/19/23] multivitamin 1 tab PO DAILY SUPPLEMENT 11/11/21 [History Last Taken 11/10/21] potassium chloride 10 mEq tablet,extended release(part/cryst) 20 meq PO DAILY SUPPLEMENT 11/11/21 [History Last Taken Unknown] metoprolol succinate 50 mg tablet,extended release 24 hr 50 mg PO BID BLOOD PRESSURE #60 tabs 10/15/22 [Rx Last Taken 04/19/23] gabapentin 300 mg capsule 300 mg PO DAILY NEUROPATHY 11/14/22 [History Last Taken Unknown] insulin glargine 100 unit/mL (3 mL) subcutaneous pen (Lantus Solostar U-100 Insulin) 10 unit subcut 1200 DIABETES 11/14/22 [History Last Taken 04/19/23] metformin 500 mg tablet,extended release 24 hr 500 mg PO BID DIABETES 11/15/22 [History Last Taken 04/19/23] famotidine 40 mg tablet 40 mg PO DAILY ACID REFLUX 04/20/23 [History Last Taken 04/19/23] Allergy/AdvReac Type Severity Reaction Status Date / Time No Known Allergies Allergy Verified 04/20/23 11:33 Family History Father CAD (coronary artery disease) Mother Dementia Surgical History H/O aortic valve replacement H/O cardiac catheterization History of aortic aneurysm repair (~2016) History of aortic valve replacement with bioprosthetic valve (~2016) History of cataract surgery History of hernia repair Social History Smoking Status: Current every day smoker tobacco type: cigarettes alcohol intake: current alcohol intake frequency: 0-2 drinks per day details: Reports currently ~ 2 tall boys daily. substance use type: former substance user caffeine: Yes Type: coffee Number of servings: 3 ROS ROS ED Constitutional Constitutional ED: Denies chills, fever(s) or sweats Eyes Eyes: Denies change in vision ENT ENT ED: Denies dysphagia or sore throat Cardiovascular Cardiovascular: Denies chest pain, leg edema, palpitations or racing heartbeat Respiratory/Chest Respiratory/Chest: Denies cough, dyspnea or dyspnea on exertion Gastrointestinal Gastrointestinal: Reports abdominal pain, nausea and vomiting; Denies diarrhea Genitourinary Genitourinary ED: Denies dysuria, hematuria or urinary frequency Musculoskeletal Musculoskeletal: Denies back pain, extremity pain or neck pain Integumentary Denies rash or wounds Neurologic Neurologic: Denies headache(s), paresthesias or weakness EXAM Physical Exam Const Vital Signs: 04/20/23 11:29 04/20/23 16:05 Temperature 97.6 F L 98.2 F Temperature Source Oral Pulse Rate 125 H 117 H Respiratory Rate 16 16 Blood Pressure 154/107 H 143/80 H Blood Pressure Mean 122 101 Pulse Ox 97 100 Oxygen Delivery Method Room Air Positive well nourished and well developed General Appearance ED: well developed and NAD HEENT Reports moist mucous membranes normocephalic and atraumatic Eyes PERRL, EOMs intact bilaterally and conjunctivae normal General Eye ED: Yes normal appearance of both eyes Neck no lymphadenopathy and supple General: Negative for tenderness Chest Wall Chest: Negative for tenderness Resp normal respiratory effort and normal air movement Effort and Inspection: symmetric chest movement; Negative for respiratory distress Cardio regular rhythm and no murmurs Rate: tachycardic Peripheral Pulses: pulses 2+ throughout GI GI Narrative: Tender epigastric mid abdominal. Negative Hightower's McBurney's tenderness. Palpation: Negative for guarding or rebound tenderness present Back/Spine no CVA tenderness and no thoracic nor lumbar tenderness Extremity normal to inspection General Extremety ED: Negative for edema or tenderness General Extremity: Negative for edema Neuro oriented x3 and no sensory deficits noted Sensorium / Orientation: awake and alert Skin no rashes or lesions noted and no wounds MDM MDM MDM Narrative Medical decision making narrative: Interventions / MDM: Differential diagnosis: Alcohol dependence, pancreatitis Diagnosis considered but do not suspect: AAA however CT negative, no pneumoperitoneum My EKG interpretation: N/A Imaging independently reviewed and interpreted by myself: CT abdomen pelvis IV contrast: Thickened gastric wall, chronic pancreatitis findings, mild abdominal ascites, fatty liver, small pleural effusion. This was radiology due to system being down External documents reviewed: N/A Test considered but not ordered:N/A ED course: Tachycardic on arrival. Abdominal pain for months worsening today. Abdominal labs ordered CT scan. Fluids pain medicines antiemetics. Will plan for admission as he would like alcohol detox. Labs slight alcoholic pancreatitis. Normal lipase. Toxicology negative. Creatinine 1.36. CT scan chronic pancreatitis fatty liver mild ascites. Has no abdominal distention on exam. Clinically stable reevaluation. I discussed with hospitalist, Dr. Frausto for admission with patient requesting detox. Re-evaluation: stable Disposition discussed with patient/family/significant other: Patient Case discussed with consulting clinician: Hospitalist This note was generated with [employer] dictation software. It may contain incorrect words, spelling, and punctuation that were not noted in checking the note before signing. Radiography Diagnostic Testing: Clinical Impression(s) from Imaging Studies Abdomen/Pelvis CT 04/20/23 11:39 IMPRESSION: Diffuse atrophy of the pancreas with calcifications. Hepatomegaly and diffuse fatty infiltration of liver. Ascites. Status post cholecystectomy. Small right pleural effusion with basilar atelectasis. Electronically Signed: Carlos Campos MD at 15:46 EDT , Discharge Plan Dx/Rx/DC Orders Clinical Impression: Abdominal ascites, Alcohol dependence, Gastric wall thickening, Chronic pancreatitis, Alcoholic hepatitis Disposition Disposition: Acute Care Hospital [facility] Discharge Date/Time: 04/20/23 16:21
[2023-04-20] MEDS: 0.9% Normal Saline (1000mL) 1,000 ML 1000 ML IV (12:15)
[2023-04-20] MEDS: Morphine 4 MG/ML Syringe IV (12:15)
[2023-04-20] MEDS: Ondansetron 4 MG/2 ML Vial IV (12:15)
[2023-04-20] MEDS: Pantoprazole Sodium 40 MG in 0.9% Normal Saline (100mL MB+) 100 ML 330 MG IV (14:49)
--- NOTE | 2023-04-20 15:26 | PCM.HP.STD ---
HPI - General General Date of Admission: 04/20/23 HPI Narrative ANALILIA TALLEY, is a 62 M who presents to the hospital requesting alcohol detox. He also states that he has some abdominal pain though this does appear to be a somewhat chronic issue as he does have chronic pancreatitis because of his chronic alcoholism. Lipase was unremarkable and CT scan of his abdomen and pelvis shows some ascitic fluid which was not present in [address] of the chest. He states that this abdominal pain has been going on for several months and he does have a history of alcoholic pancreatitis in the past that appears to have led to a chronic pancreatitis. His last drink was yesterday and he says that he drinks about 2 tall boys a day and he feels that it is time to get his drinking under control and he states that he is having some anxiety as well as tremors. [facility] Medical History AAA (abdominal aortic aneurysm) Admitted to alcohol detoxification center Adrenal nodule Alcohol dependence Alcoholism Anxiety Ascending aortic dissection (~2005) Cardiac pacemaker in situ (~06/2016) Diabetes Diabetes mellitus, type II Essential hypertension Hiatal hernia History of diabetes mellitus HTN (hypertension) Hx of hypercholesterolemia Left carotid bruit Myocardial infarct Non-sustained ventricular tachycardia Pacemaker Pacemaker Pancreatitis Pure hypercholesterolemia Right bundle branch block (RBBB) Sick sinus syndrome Smoker Substance abuse SVT (supraventricular tachycardia) Thoracic aortic aneurysm Tobacco use Home Medications omeprazole 40 mg capsule,delayed release 40 mg PO DAILY ACID REFLUX 06/10/18 [History Last Taken 04/19/23] amlodipine 5 mg tablet 5 mg PO DAILY BLOOD PRESSURE 10/17/20 [History Last Taken 04/19/23] atorvastatin 10 mg tablet 10 mg PO DAILY CHOLESTEROL 10/17/20 [History Last Taken 04/19/23] hydralazine 25 mg tablet 25 mg PO TID BP 10/17/20 [History Last Taken 04/19/23] hydrochlorothiazide 12.5 mg tablet 12.5 mg PO DAILY BLOOD PRESSURE 10/17/20 [History Last Taken 11/11/21] ramipril 10 mg capsule 10 mg PO BID BLOOD PRESSURE 10/17/20 [History Last Taken 11/11/21] dapagliflozin propanediol 10 mg tablet (Farxiga) 10 mg PO DAILY DIABETES 09/30/21 [History Last Taken 04/19/23] multivitamin 1 tab PO DAILY SUPPLEMENT 11/11/21 [History Last Taken 11/10/21] potassium chloride 10 mEq tablet,extended release(part/cryst) 20 meq PO DAILY SUPPLEMENT 11/11/21 [History Last Taken Unknown] metoprolol succinate 50 mg tablet,extended release 24 hr 50 mg PO BID BLOOD PRESSURE #60 tabs 10/15/22 [Rx Last Taken 04/19/23] gabapentin 300 mg capsule 300 mg PO DAILY NEUROPATHY 11/14/22 [History Last Taken Unknown] insulin glargine 100 unit/mL (3 mL) subcutaneous pen (Lantus Solostar U-100 Insulin) 10 unit subcut 1200 DIABETES 11/14/22 [History Last Taken 04/19/23] metformin 500 mg tablet,extended release 24 hr 500 mg PO BID DIABETES 11/15/22 [History Last Taken 04/19/23] famotidine 40 mg tablet 40 mg PO DAILY ACID REFLUX 04/20/23 [History Last Taken 04/19/23] Allergy/AdvReac Type Severity Reaction Status Date / Time No Known Allergies Allergy Verified 04/20/23 11:33 Family History Father CAD (coronary artery disease) Mother Dementia Surgical History H/O aortic valve replacement H/O cardiac catheterization History of aortic aneurysm repair (~2016) History of aortic valve replacement with bioprosthetic valve (~2016) History of cataract surgery History of hernia repair Social History Smoking Status: Current every day smoker tobacco type: cigarettes alcohol intake: current alcohol intake frequency: 0-2 drinks per day details: Reports currently ~ 2 tall boys daily. substance use type: former substance user caffeine: Yes Type: coffee Number of servings: 3 ROS Constitutional Constitutional: Denies chills, fatigue, fever(s) or malaise Eyes Eyes: Denies blurry vision ENT HEENT: Denies headache(s) or nasal discharge Cardiovascular Cardiovascular: Denies chest pain, dyspnea on exertion or syncope Respiratory/Chest Respiratory/Chest: Denies cough, shortness of breath at rest or shortness of breath with exertion Gastrointestinal Gastrointestinal: Reports abdominal pain; Denies constipation, diarrhea, nausea or vomiting Genitourinary Genitourinary: Denies dysuria Neurologic Neurologic: Reports tremor(s); Denies focal weakness or numbness Psychiatric Psychiatric: Reports anxiety; Denies depression Vital Signs Vital Signs Vital Signs: 04/20/23 11:29 Temperature 97.6 F L Temperature Source Oral Pulse Rate 125 H Respiratory Rate 16 Blood Pressure 154/107 H Blood Pressure Mean 122 Pulse Ox 97 Oxygen Delivery Method Room Air Weight Weight: 140 lb 14.006 oz Body Mass Index (BMI) 19.6 Physical Exam Narrative General: Alert, Oriented x3, Cooperative, No apparent distress, slightly restless HEENT: Atraumatic, PERRLA, EOMI, Normocephalic Oral: Moist Mucosa Neck: Supple, No JVD Lungs: Diminished, Normal air movement, No rhonchi, No wheeze, No rales Cardiovascular: Regular rate, Regular Rhythm, Normal S1, Normal S2, No murmurs Abdomen: Soft, slight epigastric tender, Non-Distended, No Hepato-splenomegaly Extremities: No edema, Capillary Refill Less than 3 Seconds Skin: No rashes, No breakdown Musculoskeletal: No Tenderness to Palpation of Joints or Extremities Neurological: No focal neurological deficits, Motor Exam 5/5 strength throughout, Sensory exam intact to light touch and pain Psych/Mental Status: A little anxious Results Lab / Micro Data 04/20/23 12:05 04/20/23 12:05 Assessment & Plan Assessment/Plan (1) Alcohol abuse: PLAN: Plan 1. Acute alcohol withdrawal/chronic pancreatitis ? Continue with alcohol withdrawal protocol ? Have him follow-up with 180 as an outpatient when he is ready for discharge ? Last drink was yesterday says that he drinks 2, 40 ounce drinks a day ? Given the new ascites obtain a hepatitis panel and recommend that he follow-up with GI as an outpatient ? Per report lipase was unremarkable 2. HTN/HLD/aortic valve replacement ? Blood pressures are stable ? Continue with his home blood pressure medications ? Continue with Lipitor ? Will monitor make adjustments as necessary 3. DM2 ? Placed on sliding scale insulin and can resume home insulin ? Accu-Cheks ACHS ? Hold metformin ? Will monitor make adjustments as necessary 4. GERD ? Stable ? Continue with PPI DVT: Ambulation 76 minutes was spent on direct patient care, including documentation as well as chart review and collaboration with colleagues Charges/Coding Visit Charges Inpatient E&M: 86433 Init Hosp L3
[2023-04-20] MEDS: Famotidine 20 MG Tablet 40 MG PO (16:41)
[2023-04-20] MEDS: Phenobarbital 32.4 MG Tablet PO ×2 (16:41→20:12)
[2023-04-20] MEDS: Ramipril 10 MG Capsule PO (16:42)
[2023-04-20] MEDS: 0.9% Normal Saline (1000mL) 1,000 ML 75 ML IV (16:42)
[2023-04-20] MEDS: hydrALAZINE 25 MG Tablet PO ×2 (16:43→22:03)
[2023-04-20] MEDS: Metoprolol(XL)Succ 50 MG Tablet PO ×2 (16:44→22:03)
[2023-04-20] MEDS: hydrOXYzine PAM 25 MG Capsule 50 MG PO (16:44)
[2023-04-20] MEDS: Ondansetron 8 MG Tablet PO (16:44)
[2023-04-20] MEDS: Dicyclomine 10 MG Capsule 20 MG PO (16:44)
[2023-04-20 16:49] LABS: Bedside Glucose 175 mg/dL (74-106)
[2023-04-20 19:07] LABS: Hematocrit 35.9 % (40-54); Hemoglobin 11.8 g/dL (13.0-16.5); Mean Corpuscular Hgb 33.5 pg (27.0-32.0); Red Blood Count 3.52 M/mm3 (4.6-6.2)
[2023-04-20 19:08] LABS: Absolute Neutrophil Count 6.1 X10^3/uL (2.0-7.7); Basophil% 0.9 % (0-1); Eosinophils% 0.5 % (0-5); Lymphocyte % 11.2 % (19-41); Mean Corp Hgb Conc 32.9 g/dL (32-36); Mean Platelet Vol. 10.8 fl (6.2-12.0); Monocyte# 0.82 X10^3/uL; Monocyte% 10.2 % (0-10); Neutrophil # 6.14 X10^3/uL (2.7-7.7); Neutrophil % 76.5 % (47-70); Platelet Count 132 K/mm3 (150-450); RBC Distribution Width CV 15.4 % (11.6-14.6); RBC Distribution Width SD 57.8 fl (35.1-43.9)
[2023-04-20 19:09] LABS: Basophil# 0.07 X10^3/uL; Eosinophil# 0.04 X10^3/uL
[2023-04-20] MEDS: Gabapentin 300 MG Capsule PO (20:15)
[2023-04-20] MEDS: Insulin Lispro 100 UNIT/ML INSULN.PEN SC (22:06)
[2023-04-20 22:07] LABS: Amphetamine Urine VISTA NEGATIVE (<1000 ng/mL); Barbiturate Urine VISTA NEGATIVE (< 200 ng/mL); Benzodiazepine Urine VISTA NEGATIVE (< 200 ng/mL); Cocaine Urine VISTA NEGATIVE (< 300 ng/mL); Ecstacy Urine VISTA NEGATIVE (< 500 ng/mL); Methadone Urine VISTA NEGATIVE (< 300 ng/mL); PCP Urine VISTA NEGATIVE (< 25 ng/mL); THC Urine VISTA NEGATIVE (< 50 ng/mL); Vista UDS pH Range 6
[2023-04-20 22:08] LABS: Albumin, Serum 2.1 g/dL (3.2-5.0); BUN 7 mg/dL (7-18); BUN/Creat Ratio 5.1 RATIO (10-20); Creatinine, Serum 1.36 mg/dL (0.70-1.30); EST Glomerular Filtration Rate 57 mL/min (>60); Est Glom Filt Rate - Afr Amer 69 mL/min (>60); Estimated Creatinine Clearance 52.21 ml/min; Globulin 3.1 g/dL (2.2-4.2); Glucose 221 mg/dL (74-106); Protein, Total 5.2 g/dL (6.4-8.2)
[2023-04-20 22:09] LABS: AST(SGOT) 276 U/L (15-37); Alanine Aminotransfer ALT/SGPT 89 U/L (16-61); Alkaline Phosphatase 199 U/L (45-117); Anion Gap 7 (5-15); Bilirubin, Direct 0.42 mg/dL (0.00-0.30); Calcium,Total 7.8 mg/dL (8.5-10.1); Chloride 103 mmol/L (98-107); Lipase < 10 U/L (13-75); Potassium 3.3 mmol/L (3.5-5.1); Sodium Level 147 mmol/L (136-145)
[2023-04-20 22:29] LABS: Bedside Glucose 196 mg/dL (74-106)
[2023-04-21] VITALS (10 sets, daily range): BP systolic 94–123; BP diastolic 53–83; PULSE 61–78; RESP 16–18; TEMP 36.6–37.2; O2SAT 87–93
[2023-04-21] MEDS: Phenobarbital 32.4 MG Tablet PO ×6 (00:29→20:55)
[2023-04-21] MEDS: hydrOXYzine PAM 25 MG Capsule 50 MG PO ×2 (00:32→21:01)
[2023-04-21] MEDS: 0.9% Normal Saline (1000mL) 1,000 ML 75 ML IV ×2 (06:12→17:38)
[2023-04-21] MEDS: hydrALAZINE 25 MG Tablet PO ×2 (06:38→20:55)
[2023-04-21 06:58] LABS: Bedside Glucose 105 mg/dL (74-106)
[2023-04-21 07:24] LABS: ALB/GLOB Ratio 0.6 RATIO (0.9-2.4); AST(SGOT) 221 U/L (15-37); Alanine Aminotransfer ALT/SGPT 70 U/L (16-61); Albumin, Serum 1.6 g/dL (3.2-5.0); Alkaline Phosphatase 158 U/L (45-117); Anion Gap 5 (5-15); BUN 6 mg/dL (7-18); BUN/Creat Ratio 5.2 RATIO (10-20); Calcium,Total 7.3 mg/dL (8.5-10.1); Chloride 106 mmol/L (98-107); Creatinine, Serum 1.15 mg/dL (0.70-1.30); EST Glomerular Filtration Rate 69 mL/min (>60); Est Glom Filt Rate - Afr Amer 83 mL/min (>60); Estimated Creatinine Clearance 61.74 ml/min; Globulin 2.5 g/dL (2.2-4.2); Glucose 106 mg/dL (74-106); Potassium 3.6 mmol/L (3.5-5.1); Protein, Total 4.1 g/dL (6.4-8.2); Sodium Level 143 mmol/L (136-145)
[2023-04-21] MEDS: Famotidine 20 MG Tablet 40 MG PO (10:26)
[2023-04-21] MEDS: Folic Acid 1 MG Tablet PO (10:26)
[2023-04-21] MEDS: Thiamine Hydrochloride 100 MG Tablet PO (10:26)
[2023-04-21] MEDS: Atorvastatin Calcium 10 MG Tablet PO (10:26)
[2023-04-21] MEDS: Pantoprazole Sodium 40 MG Tablet PO (10:27)
[2023-04-21] MEDS: Insulin Lispro 100 UNIT/ML INSULN.PEN SC (12:02)
[2023-04-21 12:20] LABS: Bedside Glucose 260 mg/dL (74-106)
--- NOTE | 2023-04-21 13:46 | CHAPLAIN ---
Type of Pastoral Visit _x__ Initial Visit ___ Follow-up Visit ___ On-call Visit ___ General Patient Visit ___ Spiritual Assessment ___ Family Conference ___ Bereavement ___ Rapid Response ___ Code Blue ___ Other (describe below) Pastoral Care Referral From _x__ Patient ___ Family ___ Nurse ___ Physician ___ Tractor Mechanic Apprentice ___ Sand Mixer Operator ___ Other (describe below) Sacrament/Intervention _x__ Active listening ___ Anointing ___ Jain ___ Bereavement ___ Communion ___ Diana exploration ___ ___ Life review _x__ Prayer ___ Reconciliation ___ Sacrament of Sick ___ Supportive presence ___ Wedding ___ Other (describe below) Pastoral Comments on first attempt the patient was found sleeping; later attempt and the patient had just received his lunch and is awake; pt is pleasant and states his level of stomach pain and the difficulty it is in eating for him; time given to sit at bedside; pt says he has little thoughts about what he needs for is welcoming of support; pt agrees to have a prayer spoken and states that I use to go to restorationist but I just haven't lately' prayer is welcomed and pt admits having difficult time staying awake
--- NOTE | 2023-04-21 14:49 | PN_ITS ---
Subjective Subjective Patient seen and examined. HE he was comfortably eating breakfast. He had no active complaints. He said his abdominal pain was getting better. He denied any symptoms of withdrawal. Review of systems otherwise negative. His BP is running low this morning in the 90s systolic. Objective Data Objective Data Vital Signs: Vital Signs Temp Pulse Resp BP Pulse Ox O2 Del Method O2 Flow Rate 97.9 F 61 18 94/61 93 Room Air 2 04/21/23 14:00 04/21/23 14:08 04/21/23 14:00 04/21/23 14:08 04/21/23 14:00 04/21/23 14:00 04/21/23 10:00 Oxygen Flow Rate (L/min) 2 Oxygen Delivery Method Room Air Weight: 140 lb 14.006 oz Body Mass Index (BMI) 19.7 Intake & Output: Intake and Output for Last 24 Hours 04/19/23 04/20/23 04/21/23 23:59 23:59 23:59 Intake Total 2410 / 2410 1600 / 1600 Balance 2410 / 2410 1600 / 1600 Lab / Micro Data 04/20/23 12:05 04/21/23 06:30 Labs: Laboratory Results - last 24 hr 04/20/23 11:50: Urine Opiates Screen NEGATIVE, Urine Methadone Screen NEGATIVE, Ur Barbiturates Screen NEGATIVE, Ur Phencyclidine Scrn NEGATIVE, Ur Amphetamines Screen NEGATIVE, MDMA (Ecstasy) Screen NEGATIVE, U Benzodiazepines Scrn NEGATIVE, Urine Cocaine Screen NEGATIVE, U Cannabinoids Screen NEGATIVE, Ur Drug Screen Comment 04/20/23 12:05: WBC 8.0, RBC 3.52 L, Hgb 11.8 L, Hct 35.9 L, MCV 102.0 H, MCH 33.5 H, MCHC 32.9, RDW Std Deviation 57.8 H, RDW Coeff of Kalpana 15.4 H, Plt Count 132 L, MPV 10.8, Immature Gran % (Auto) 0.700, Neut % (Auto) 76.5 H, Lymph % (Auto) 11.2 L, Mcpherson % (Auto) 10.2 H, Eos % (Auto) 0.5, Baso % (Auto) 0.9, Ab solute Neuts (auto) 6.1, Absolute Lymphs (auto) 0.90, Sodium 147 H, Potassium 3.3 L, Chloride 103, Carbon Dioxide 37.0 H, Anion Gap 7, BUN 7, Creatinine 1.36 H, Estim Creat Clear Calc 52.21, Est GFR (MDRD) Af Amer 69, Est GFR (MDRD) Non- Af 57 L, BUN/Creatinine Ratio 5.1 L, Glucose 221 H, Calcium 7.8 L, Total Biliru bin 0.90, Direct Bilirubin 0.42 H, AST 276 H, ALT 89 H, Alkaline Phosphatase 199 H, Total Protein 5.2 L, Albumin 2.1 L, Globulin 3.1, Lipase < 10 L, Ethyl Alcohol 56.0 04/20/23 16:32: POC Glucose 175 H 04/20/23 21:59: POC Glucose 196 H 04/21/23 06:30: Sodium 143, Potassium 3.6, Chloride 106, Carbon Dioxide 32.0, Anion Gap 5, BUN 6 L, Creatinine 1.15, Estim Creat Clear Calc 61.74, Est GFR (MDRD) Af Amer 83, Est GFR (MDRD) Non-Af 69, BUN/Creatinine Ratio 5.2 L, Glucose 106, Calcium 7.3 L, Total Bilirubin 1.00, AST 221 H, ALT 70 H, Alkaline Phosphatase 158 H, Total Protein 4.1 L, Albumin 1.6 L, Globulin 2.5, Albumin/Globulin Ratio 0.6 L 04/21/23 06:35: POC Glucose 105 04/21/23 12:00: POC Glucose 260 H Radiography Diagnostic Testing: Radiology Impression Abdomen/Pelvis CT 04/20/23 11:39 IMPRESSION: Diffuse atrophy of the pancreas with calcifications. Hepatomegaly and diffuse fatty infiltration of liver. Ascites. Status post cholecystectomy. Small right pleural effusion with basilar atelectasis. Electronically Signed: Carlos Campos MD at 15:46 EDT , Physical Exam Const alert, oriented x3 and no apparent distress General Appearance: cooperative HEENT normocephalic, head/scalp atraumatic, moist oral mucous membranes and oropharynx normal Eyes PERRL and EOMs intact bilaterally Neck no lymphadenopathy, supple and no JVD Lymph Lymphatic: no lymphadenopathy noted and no lymphedema noted Resp normal respiratory effort, normal air movement and clear to auscultation bilaterally Cardio regular rate, regular rhythm, S1 normal heart sound, S2 normal heart sound and no murmurs GI normal to inspection, nondistended, normoactive bowel sounds, soft to palpation, non-tender and non-distended Extremity normal capillary refill, no clubbing, cyanosis or edema and no calf tenderness General Extremity: no tenderness to palpation of joints or extremities Skin General Skin Exam: no breakdown Neuro CN's II-XII intact bilaterally, no focal motor deficits, no sensory deficits noted and deep tendon reflexes 2+ bilaterally Motor Exam: strength 5/5 throughout and general weakness Psych thought process normal, cooperative and affect normal Appearance: appropriate Assessment & Plan Assessment/Plan (1) Alcohol dependence: (2) Chronic pancreatitis: PLAN: Plan #Acute alcohol withdrawal * Currently on alcohol withdrawal protocol with phenobarbital. * On thiamine, folic acid and Multi-Rl. * Adjunctive meds for symptomatic relief. * Monitor CIWA score. * #Chronic pancreatitis * Has a history of chronic pancreatitis due to alcohol abuse. He still drinks and says his last drink was the day before admission. * He did complain of some abdominal pain * on Creon * counseled to quit drinking * will monitor * #Type 2 diabetes mellitus: On dapagliflozin and Lantus 10 units daily. Also on metformin. Insulin sliding scale. Accu-Cheks ACHS. #Hypertension; on hydrochlorothiazide and hydralazine as well as amlodipine and metoprolol. IV hydralazine as needed. #Hyperlipidemia: On atorvastatin. #Nonsustained Ventricular Tachycardia: On metoprolol. # History of aortic valve replacement: Stable. #GERD: PPI DVT prophylaxis: Low risk. Encourage ambulation. Charges/Coding Visit Charges Inpatient E&M: 58791 Subs Hosp L2
[2023-04-21] MEDS: Metoprolol(XL)Succ 50 MG Tablet PO (20:56)
[2023-04-21] MEDS: traZODone 100 MG Tablet PO (21:01)
[2023-04-21 22:13] LABS: Bedside Glucose 157 mg/dL (74-106)
[2023-04-22] VITALS (9 sets, daily range): BP systolic 100–145; BP diastolic 67–89; PULSE 68–79; RESP 16–18; TEMP 36.9–37.1; O2SAT 93–98
[2023-04-22] MEDS: Phenobarbital 32.4 MG Tablet PO ×6 (00:33→20:55)
[2023-04-22] MEDS: Dicyclomine 10 MG Capsule 20 MG PO (00:33)
[2023-04-22] MEDS: Gabapentin 300 MG Capsule PO ×2 (00:33→08:31)
--- NOTE | 2023-04-22 00:42 | NURSING ---
This RN entered patient's room following bed exit alarm going off. Patient was kneeling on floor. 3 bedrails were up and call light was in reach. Patient states that he did not hit his head. Vital signs were obtained and sent to physician. Patient stated that he was going to the bathroom. Patient was given the urinal and patient was placed back in bed. Bed exit on.
[2023-04-22 00:54] LABS: Bacteria 0 SEEN /hpf (None Seen); Mucous, Urine 0 SEEN /hpf (<or=2+); White Blood Cells 0 SEEN /hpf (0-5)
[2023-04-22 00:58] LABS: Color, Urine Yellow (Yellow); Glucose, Dipstick 100 mg/dl (Normal); Ketone-Dipstick Negative (Negative); Leukocyte Esterase-Dipstick 25 /ul (Negative); Nitrite-Dipstick Negative (Negative); Occult Blood-Urine Negative /ul (Negative); Protein-Dipstick 15 mg/dl (Negative); Specific Gravity, Urine 1.015 (1.002-1.030); Urine Bilirubin Dipstick Negative (Negative); Urine Clarity Clear (Clear); Urine Urobilinogen Normal (Normal)
[2023-04-22 01:09] LABS: Red Blood Cells-Urine 0-5 SEEN /hpf (0-5); Squamous Epithelial Cells - UA 5-10 SEEN /hpf (0-5)
[2023-04-22] MEDS: hydrOXYzine PAM 25 MG Capsule 50 MG PO ×3 (02:53→20:55)
[2023-04-22 04:16] LABS: Bedside Glucose 99 mg/dL (74-106)
[2023-04-22 05:07] LABS: HEPATITIS B SURFACE AG Negative (Negative); Hep C Antibodies Non Reactive (Non Reactive); Hepatitis A IgM Antibody Negative (Negative); Hepatitis B Core AB IgM Negative (Negative)
[2023-04-22] MEDS: hydrALAZINE 25 MG Tablet PO (06:26)
[2023-04-22 06:47] LABS: Bedside Glucose 133 mg/dL (74-106)
[2023-04-22] MEDS: 0.9% Normal Saline (1000mL) 1,000 ML 75 ML IV ×2 (08:21→21:49)
[2023-04-22] MEDS: Folic Acid 1 MG Tablet PO (08:21)
[2023-04-22] MEDS: Atorvastatin Calcium 10 MG Tablet PO (08:22)
[2023-04-22] MEDS: Pantoprazole Sodium 40 MG Tablet PO (08:22)
[2023-04-22] MEDS: Famotidine 20 MG Tablet 40 MG PO (08:22)
[2023-04-22] MEDS: Metoprolol(XL)Succ 50 MG Tablet PO (08:36)
[2023-04-22] MEDS: amLODIPine 5 MG Tablet PO (08:39)
[2023-04-22] MEDS: Thiamine Hydrochloride 100 MG Tablet PO (08:47)
--- NOTE | 2023-04-22 10:28 | ADDICTION ---
Addendum entered by Maricel Hwang 04/23/23 12:58: This note represents pt from 04/21/23. On 04/22/23 Pt was sleeping 2x when TW attempted to see pt. Original Note: This screenplay writer met with PT to conduct ASAM, MSE, AUDIT, DUDIT assessments and to plan for d/c. PT A+Ox4 and participated minimally. All assessments completed. PT plans to f/u with individual counselor at [facility] for outpatient treatment. This worker discussed with pt his 21x in detox. He stated, I don't want to hear that. What do you want me to do about it? This worker suggested residential tx as well as seeing a counselor regularly. Pt declined residential tx. PT did not indicate a need for transportation post d/c from [facility].
--- NOTE | 2023-04-22 11:12 | PN_ITS ---
Subjective Subjective Patient seen and examined. He had no complaints. His abdominal pain had improved and he felt much better. Previous times otherwise negative. Objective Data Objective Data Vital Signs: Vital Signs Temp Pulse Resp BP Pulse Ox O2 Del Method O2 Flow Rate 99.0 F 79 16 145/67 H 93 Room Air 2 04/21/23 22:00 04/22/23 08:36 04/21/23 22:00 04/22/23 08:36 04/22/23 09:19 04/22/23 09:19 04/21/23 10:00 Oxygen Flow Rate (L/min) 2 Oxygen Delivery Method Room Air Weight: 140 lb 14.006 oz Body Mass Index (BMI) 19.7 Intake & Output: Intake and Output for Last 24 Hours 04/20/23 04/21/23 04/22/23 23:59 23:59 23:59 Intake Total 2410 / 2410 2457.5 / 2457.5 1000 / 1000 Output Total 400 / 400 Balance 2410 / 2410 2457.5 / 2457.5 600 / 600 Lab / Micro Data 04/20/23 12:05 04/21/23 06:30 Labs: Laboratory Results - last 24 hr 04/21/23 06:30: Hepatitis A IgM Ab Negative, Hep Bs Antigen Negative, Hep B Core IgM Ab Negative, Hepatitis C Ab (EIA) Non Reactive, Hep C Ab Comment Comment 04/21/23 12:00: POC Glucose 260 H 04/21/23 16:54: POC Glucose 99 04/21/23 21:54: POC Glucose 157 H 04/22/23 00:30: Urine Color Yellow, Urine Clarity Clear, Urine pH 8.0, Ur Specific [place] 1.015, Urine Protein 15 H, Urine Glucose (UA) 100 H, Urine Ketones Negative, Urine Occult Blood Negative, Urine Nitrite Negative, Urine Bilirubin Negative, Urine Urobilinogen Normal, Ur Leukocyte Esterase 25 H, Urine RBC 0-5 SEEN, Urine WBC 0 SEEN, Ur Squamous Epith Cells 5-10 SEEN, Urine Bacteria 0 SEEN, Urine Mucus 0 SEEN 04/22/23 06:26: POC Glucose 133 H Radiography Diagnostic Testing: Radiology Impression Abdomen/Pelvis CT 04/20/23 11:39 IMPRESSION: Diffuse atrophy of the pancreas with calcifications. Hepatomegaly and diffuse fatty infiltration of liver. Ascites. Status post cholecystectomy. Small right pleural effusion with basilar atelectasis. Electronically Signed: Carlos Campos MD at 15:46 EDT , Physical Exam Const alert, oriented x3 and no apparent distress General Appearance: cooperative HEENT normocephalic, head/scalp atraumatic, moist oral mucous membranes and oropharynx normal Eyes PERRL and EOMs intact bilaterally Neck no lymphadenopathy, supple and no JVD Lymph Lymphatic: no lymphadenopathy noted and no lymphedema noted Resp normal respiratory effort, normal air movement and clear to auscultation bilaterally Cardio regular rate, regular rhythm, S1 normal heart sound, S2 normal heart sound and no murmurs GI normal to inspection, nondistended, normoactive bowel sounds, soft to palpation, non-tender and non-distended Extremity normal capillary refill, no clubbing, cyanosis or edema and no calf tenderness General Extremity: no tenderness to palpation of joints or extremities Skin General Skin Exam: no breakdown Neuro CN's II-XII intact bilaterally, no focal motor deficits, no sensory deficits noted and deep tendon reflexes 2+ bilaterally Motor Exam: strength 5/5 throughout and general weakness Psych thought process normal, cooperative and affect normal Appearance: appropriate Assessment & Plan Assessment/Plan (1) Alcohol dependence: (2) Chronic pancreatitis: PLAN: Plan #Acute alcohol withdrawal * Currently on alcohol withdrawal protocol with phenobarbital. * On thiamine, folic acid and Multi-Rl. * Adjunctive meds for symptomatic relief. * Monitor CIWA score. * #Chronic pancreatitis * Has a history of chronic pancreatitis due to alcohol abuse. He still drinks and says his last drink was the day before admission. * abdominal pain has resolved. * on Creon * counseled to quit drinking * will monitor * #Type 2 diabetes mellitus: On dapagliflozin and Lantus 10 units daily. Also on metformin. Insulin sliding scale. Accu-Cheks ACHS. #Hypertension: on hydrochlorothiazide and hydralazine as well as amlodipine and metoprolol. IV hydralazine as needed. #Hyperlipidemia: On atorvastatin. #Nonsustained Ventricular Tachycardia: On metoprolol. # History of aortic valve replacement: Stable. #GERD: PPI DVT prophylaxis: Low risk. Encourage ambulation. Charges/Coding Visit Charges Inpatient E&M: 93990 Subs Hosp L2
[2023-04-22] MEDS: Insulin Lispro 100 UNIT/ML INSULN.PEN SC (11:45)
[2023-04-22 12:26] LABS: Bedside Glucose 255 mg/dL (74-106)
[2023-04-22 16:53] LABS: Bedside Glucose 77 mg/dL (74-106)
[2023-04-22] MEDS: traZODone 100 MG Tablet PO (20:55)
[2023-04-22 22:46] LABS: Bedside Glucose 120 mg/dL (74-106)
[2023-04-23] VITALS (11 sets, daily range): BP systolic 117–137; BP diastolic 75–94; PULSE 62–93; RESP 15–20; TEMP 36.4–36.9; O2SAT 92–100
[2023-04-23] MEDS: Phenobarbital 32.4 MG Tablet PO ×5 (00:23→23:42)
[2023-04-23] MEDS: hydrALAZINE 25 MG Tablet PO ×3 (06:56→21:43)
[2023-04-23 07:01] LABS: Bedside Glucose 77 mg/dL (74-106)
[2023-04-23] MEDS: Pantoprazole Sodium 40 MG Tablet PO (09:35)
[2023-04-23] MEDS: Atorvastatin Calcium 10 MG Tablet PO (09:35)
[2023-04-23] MEDS: Famotidine 20 MG Tablet 40 MG PO (09:35)
[2023-04-23] MEDS: Metoprolol(XL)Succ 50 MG Tablet PO ×2 (09:35→21:43)
[2023-04-23] MEDS: Thiamine Hydrochloride 100 MG Tablet PO (09:35)
[2023-04-23] MEDS: amLODIPine 5 MG Tablet PO (09:35)
[2023-04-23] MEDS: Folic Acid 1 MG Tablet PO (09:36)
--- NOTE | 2023-04-23 11:39 | PCM.DC ---
Discharge Instructions Diet Discharge Diet: Low fat / Low cholesterol Activity Discharge Activity: Return to Normal Activity Weight Bearing Status: Weight bearing as tolerated Dressing / Incision Call your doctor if you observe: Fever of 101 or Higher, Shortness of breath, Dizziness, Swelling in the ankles and Chest pain Follow Up Care Test Results: Test results from this visit will be discussed in further detail at your follow-up appointment, if applicable. Discharge Plan Admission Admit Date/Time: 04/20/23 15:11 Primary Reason for Your Visit: acute alcohol withdrawal Attending Provider: Ashley Alvarado Primary Care Provider: Dk Pathak NP Consulting Providers: Lucas Frausto Instructions Patient Instructions: ED Withdrawal Alcohol Discharge Orders/Prescriptions Prescriptions: Continued omeprazole 40 mg capsule,delayed release(DR/EC) 40 mg PO DAILY hydrochlorothiazide 12.5 mg tablet 12.5 mg PO DAILY atorvastatin 10 mg tablet 10 mg PO DAILY amlodipine 5 mg tablet 5 mg PO DAILY ramipril 10 mg capsule 10 mg PO BID hydralazine 25 mg tablet 25 mg PO TID dapagliflozin propanediol [Farxiga] 10 mg Tablet 10 mg PO DAILY Hold Instructions: until you speak with your diabetic clinic or PCP. multivitamin Tablet 1 tab PO DAILY potassium chloride 10 mEq tablet,ER particles/crystals 20 meq PO DAILY Patient Comments: PT STATES THEY THINK THEY ARE ON THIS MEDICATION. insulin glargine [Lantus Solostar U-100 Insulin] 100 unit/mL (3 mL) insulin pen 10 unit subcut 1200 gabapentin 300 mg Capsule 300 mg PO DAILY Patient Comments: PT STATES THEY THINK THEY ARE ON THIS MEDICATION. metformin 500 mg tablet extended release 24 hr 500 mg PO BID Patient Comments: PT STATES THEY TAKE THIS ONCE DAILY. famotidine 40 mg tablet 40 mg PO DAILY metoprolol succinate 50 mg tablet extended release 24 hr 50 mg PO BID Qty: 60 11RF Referrals / Follow Up: Dk Pathak NP, EARLY CHILDHOOD EDUCATION INSTRUCTOR-C [Primary Care Provider] - Within 1 Week Disposition Disposition (needs filled in before D/C Order can be placed): Home, Self Care
--- NOTE | 2023-04-23 11:44 | PCM.DC.SUM ---
Providers Date of Admission: 04/20/23 Primary Care Physician: Dk Pathak, BATHROOM TILING PROFESSIONAL-C Reason For Visit: abd pain, detox Diagnosis Discharge Diagnosis (1) Alcohol dependence: Status: Acute Code(s): F10.20 - Alcohol dependence, uncomplicated (2) Chronic pancreatitis: Status: Chronic Code(s): K86.1 - Other chronic pancreatitis Plan #Acute alcohol withdrawal Currently on alcohol withdrawal protocol with phenobarbital. On thiamine, folic acid and Multi-Rl. Adjunctive meds for symptomatic relief. Monitor CIWA score. #Chronic pancreatitis Has a history of chronic pancreatitis due to alcohol abuse. He still drinks and says his last drink was the day before admission. abdominal pain has resolved. on Creon counseled to quit drinking will monitor #Type 2 diabetes mellitus: On dapagliflozin and Lantus 10 units daily. Also on metformin. Insulin sliding scale. Accu-Cheks ACHS. #Hypertension: on hydrochlorothiazide and hydralazine as well as amlodipine and metoprolol. IV hydralazine as needed. #Hyperlipidemia: On atorvastatin. #Nonsustained Ventricular Tachycardia: On metoprolol. # History of aortic valve replacement: Stable. #GERD: PPI DVT prophylaxis: Low risk. Encourage ambulation. Medications at Discharge Home Medications omeprazole 40 mg capsule,delayed release 40 mg PO DAILY ACID REFLUX 06/10/18 amlodipine 5 mg tablet 5 mg PO DAILY BLOOD PRESSURE 10/17/20 atorvastatin 10 mg tablet 10 mg PO DAILY CHOLESTEROL 10/17/20 hydralazine 25 mg tablet 25 mg PO TID BP 10/17/20 hydrochlorothiazide 12.5 mg tablet 12.5 mg PO DAILY BLOOD PRESSURE 10/17/20 ramipril 10 mg capsule 10 mg PO BID BLOOD PRESSURE 10/17/20 dapagliflozin propanediol 10 mg tablet (Farxiga) 10 mg PO DAILY DIABETES 09/30/21 multivitamin 1 tab PO DAILY SUPPLEMENT 11/11/21 potassium chloride 10 mEq tablet,extended release(part/cryst) 20 meq PO DAILY SUPPLEMENT 11/11/21 metoprolol succinate 50 mg tablet,extended release 24 hr 50 mg PO BID BLOOD PRESSURE #60 tabs 10/15/22 gabapentin 300 mg capsule 300 mg PO DAILY NEUROPATHY 11/14/22 insulin glargine 100 unit/mL (3 mL) subcutaneous pen (Lantus Solostar U-100 Insulin) 10 unit subcut 1200 DIABETES 11/14/22 metformin 500 mg tablet,extended release 24 hr 500 mg PO BID DIABETES 11/15/22 famotidine 40 mg tablet 40 mg PO DAILY ACID REFLUX 04/20/23 Weight / BMI Weight Weight: 140 lb 14.006 oz Body Mass Index (BMI) 19.7 ABG / Lab / Microbiology Data 04/20/23 12:05 04/21/23 06:30 Laboratory: Laboratory Results - last 24 hr 04/22/23 11:43: POC Glucose 255 H 04/22/23 16:35: POC Glucose 77 04/22/23 21:54: POC Glucose 120 H 04/23/23 06:44: POC Glucose 77 D/C Instructions Discharge Diet: Low fat / Low cholesterol Weight Bearing Status: Weight bearing as tolerated Call your doctor if you observe: Fever of 101 or Higher, Shortness of breath, Dizziness, Swelling in the ankles and Chest pain Discharge Plan Admission Admit Date/Time: 04/20/23 15:11 Primary Reason for Your Visit: acute alcohol withdrawal Attending Provider: Ashley Alvarado Primary Care Provider: Dk Pathak BATHROOM TILING PROFESSIONAL Consulting Providers: Lucas Frausto Instructions Patient Instructions: ED Withdrawal Alcohol Discharge Orders/Prescriptions Prescriptions: Continued omeprazole 40 mg capsule,delayed release(DR/EC) 40 mg PO DAILY hydrochlorothiazide 12.5 mg tablet 12.5 mg PO DAILY atorvastatin 10 mg tablet 10 mg PO DAILY amlodipine 5 mg tablet 5 mg PO DAILY ramipril 10 mg capsule 10 mg PO BID hydralazine 25 mg tablet 25 mg PO TID dapagliflozin propanediol [Farxiga] 10 mg Tablet 10 mg PO DAILY Hold Instructions: until you speak with your diabetic clinic or PCP. multivitamin Tablet 1 tab PO DAILY potassium chloride 10 mEq tablet,ER particles/crystals 20 meq PO DAILY Patient Comments: PT STATES THEY THINK THEY ARE ON THIS MEDICATION. insulin glargine [Lantus Solostar U-100 Insulin] 100 unit/mL (3 mL) insulin pen 10 unit subcut 1200 gabapentin 300 mg Capsule 300 mg PO DAILY Patient Comments: PT STATES THEY THINK THEY ARE ON THIS MEDICATION. metformin 500 mg tablet extended release 24 hr 500 mg PO BID Patient Comments: PT STATES THEY TAKE THIS ONCE DAILY. famotidine 40 mg tablet 40 mg PO DAILY metoprolol succinate 50 mg tablet extended release 24 hr 50 mg PO BID Qty: 60 11RF Referrals / Follow Up: Dk Pathak BATHROOM TILING PROFESSIONAL, BATHROOM TILING PROFESSIONAL-C [Primary Care Provider] - Within 1 Week Disposition Disposition (needs filled in before D/C Order can be placed): Home, Self Care
--- NOTE | 2023-04-23 12:00 | CASEMGMT ---
Noted pt with dc in and RN ZURI made aware pt needing 2 assist. RN CM into pt room, pt lying in bed in no distress. Pt difficult to waken, pt did open eyes but did not respond to questions. Spoke with pt nurse. ELIS KEATING to follow. TC to pt father, no answer. TC to alternate phone which did not work.
[2023-04-23 12:46] LABS: Bedside Glucose 200 mg/dL (74-106)
--- NOTE | 2023-04-23 12:47 | CT_ITS ---
STUDY: CT BRAIN WITHOUT CONTRAST REASON FOR EXAM: Male, 62 years old. Mechanical fall, hit his head RADIATION DOSAGE (If Supplied By Facility): CTDIvol = ( 44.99 ) mGy, DLP = ( 1558.47 ) mGycm TECHNIQUE: Transaxial CT imaging of the brain was performed without administration of intravenous contrast material. Individualized dose optimization techniques were used for this CT. COMPARISON: Comparison is made with prior study dated February 03, 2019. FINDINGS: Normal soft tissue structures. Normal calvarium. There is mild cerebral atrophy with widening of the extra-axial spaces and ventricular dilatation. There are areas of decreased attenuation within the white matter tracts of the supratentorial brain, consistent with microvascular disease changes. Since prior study, there is a focal area of decreased attenuation in the posterior aspects of both the right and left parietal occipital lobe suggestive of a ischemic insult. Normal basal ganglia and thalami. Normal brainstem. Normal cerebellum. There is no intracranial hemorrhage. There are no findings of an acute ischemic infarction. Atherosclerotic plaque formation of the vertebral arteries and cavernous portions of the internal carotid arteries bilaterally. Mucosal thickening of the ethmoid sinuses bilaterally. CT/Brain/Head without Contrast IMPRESSION: Chronic involutional changes of the brain. Since prior study, there are focal areas of decreased attenuation in the posterior aspects of both the right and left parieto-occipital lobes. This most likely secondary to prior ischemic insult. Electronically Signed: Carlos Campos MD at 14:02 EDT ,
--- NOTE | 2023-04-23 12:47 | ADDICTION ---
TW went into see pt. Pt was very lethargic and having difficulty identifying his current location, date, and ability to stay focused during conversation. Pt's appears to have some cognitive functioning difficulties. it's reported that he also is having some mobility issues.
[2023-04-23] MEDS: Insulin Lispro 100 UNIT/ML INSULN.PEN SC (12:54)
[2023-04-23] MEDS: 0.9% Normal Saline (1000mL) 1,000 ML 75 ML IV (13:47)
--- NOTE | 2023-04-23 15:19 | PCM.PROGNOTE ---
Subjective Subjective Patient seen and examined. She had no active complaints this morning. Plan was for patient to be discharged but patient was very weak today and required 2 person assist. He also fell and hit his head. Discharge therefore canceled. CT of the brain done showed focal areas of decreased attenuation in the posterior aspects of both the right and left parietal occipital lobes likely a result of prior ischemic insults. Objective Data Objective Data Vital Signs: Vital Signs Temp Pulse Resp BP Pulse Ox O2 Del Method O2 Flow Rate 97.8 F 77 16 128/94 H 93 Room Air 2 04/23/23 13:00 04/23/23 13:00 04/23/23 13:00 04/23/23 13:00 04/23/23 13:00 04/23/23 14:00 04/22/23 22:00 Oxygen Flow Rate (L/min) 2 Oxygen Delivery Method Room Air Weight: 140 lb 14.006 oz Body Mass Index (BMI) 19.7 Intake & Output: Intake and Output for Last 24 Hours 04/21/23 04/22/23 04/23/23 23:59 23:59 23:59 Intake Total 2457.5 / 2457.5 2900 / 2900 1000 / 1000 Output Total 400 / 400 Balance 2457.5 / 2457.5 2500 / 2500 1000 / 1000 Lab / Micro Data 04/20/23 12:05 04/21/23 06:30 Labs: Laboratory Results - last 24 hr 04/22/23 16:35: POC Glucose 77 04/22/23 21:54: POC Glucose 120 H 04/23/23 06:44: POC Glucose 77 04/23/23 12:29: POC Glucose 200 H Radiography Diagnostic Testing: Radiology Impression Brain CT 04/23/23 12:47 IMPRESSION: Chronic involutional changes of the brain. Since prior study, there are focal areas of decreased attenuation in the posterior aspects of both the right and left parieto-occipital lobes. This most likely secondary to prior ischemic insult. Electronically Signed: Carlos Campos MD at 14:02 EDT , Physical Exam Const alert, oriented x3 and no apparent distress Constitutional Narrative: frail, weak. General Appearance: cooperative HEENT normocephalic, head/scalp atraumatic, moist oral mucous membranes and oropharynx normal Eyes PERRL and EOMs intact bilaterally Neck no lymphadenopathy, supple and no JVD Lymph Lymphatic: no lymphadenopathy noted and no lymphedema noted Resp normal respiratory effort, normal air movement and clear to auscultation bilaterally Cardio regular rate, regular rhythm, S1 normal heart sound, S2 normal heart sound and no murmurs GI normal to inspection, nondistended, normoactive bowel sounds, soft to palpation, non-tender and non-distended Extremity normal capillary refill, no clubbing, cyanosis or edema and no calf tenderness General Extremity: no tenderness to palpation of joints or extremities Skin General Skin Exam: no breakdown Neuro CN's II-XII intact bilaterally, no focal motor deficits, no sensory deficits noted and deep tendon reflexes 2+ bilaterally Motor Exam: strength 5/5 throughout and general weakness Psych thought process normal, cooperative and affect normal Appearance: appropriate Assessment & Plan Assessment/Plan (1) Alcohol dependence: (2) Chronic pancreatitis: PLAN: Plan #Acute alcohol withdrawal Currently on alcohol withdrawal protocol with phenobarbital. On thiamine, folic acid and Multi-Rl. Adjunctive meds for symptomatic relief. Monitor CIWA score. # Debility due to mechanical fall Patient noted to be very weak during this admission. Did have a fall today and hit his head. CT of the brain done showed chronic involutional changes of the brain and focal areas of decreased attenuation in the posterior aspects of both the right and left parieto-occipital lobes which was present since prior study and most likely the result of prior ischemic insults. Per the record his last CT of the brain done that was seen in our records here is in August 2018. Patient not on aspirin or Plavix and it is not clear that he is aware of this history of stroke. Placed on p.o. aspirin 81 mg daily. Will check lipid panel also placed on high intensity statin. PT OT on board. Fall precautions. #Chronic pancreatitis Has a history of chronic pancreatitis due to alcohol abuse. He still drinks and says his last drink was the day before admission. abdominal pain has resolved. on Creon counseled to quit drinking will monitor #Type 2 diabetes mellitus: On dapagliflozin and Lantus 10 units daily. Also on metformin. Insulin sliding scale. Accu-Cheks ACHS. #Hypertension: on hydrochlorothiazide and hydralazine as well as amlodipine and metoprolol. IV hydralazine as needed. #Hyperlipidemia: On atorvastatin. #Nonsustained Ventricular Tachycardia: On metoprolol. # History of aortic valve replacement: Stable. #GERD: PPI DVT prophylaxis: Low risk. Encourage ambulation. Disposition: In light of his weakness and debility, will benefit from placement. PT OT on board. Charges/Coding Visit Charges Inpatient E&M: 51277 Subs Hosp L2
--- NOTE | 2023-04-23 15:33 | CHAPLAIN ---
Type of Pastoral Visit ___ Initial Visit _x__ Follow-up Visit ___ On-call Visit ___ General Patient Visit ___ Spiritual Assessment ___ Family Conference ___ Bereavement ___ Rapid Response ___ Code Blue ___ Other (describe below) Pastoral Care Referral From ___ Patient ___ Family ___ Nurse ___ Physician ___ First Aid Teacher ___ Rare/Endangered Species Specialist ___ Other (describe below) Sacrament/Intervention ___ Active listening ___ Anointing ___ Rastafarian ___ Bereavement ___ Communion ___ Diana exploration ___ ___ Life review ___ Prayer ___ Reconciliation ___ Sacrament of Sick ___ Supportive presence ___ Wedding ___ Other (describe below) Pastoral Comments follow up visit attempted but patient is soundly sleeping
[2023-04-23 17:26] LABS: Bedside Glucose 115 mg/dL (74-106)
[2023-04-23] MEDS: hydrOXYzine PAM 25 MG Capsule 50 MG PO (21:51)
[2023-04-23] MEDS: traZODone 100 MG Tablet PO (21:51)
[2023-04-24] VITALS (13 sets, daily range): BP systolic 112–133; BP diastolic 75–85; PULSE 60–72; RESP 18–20; TEMP 36.4–37.1; O2SAT 94–96
[2023-04-24] MEDS: 0.9% Normal Saline (1000mL) 1,000 ML 75 ML IV (01:29)
[2023-04-24 01:35] LABS: Bedside Glucose 128 mg/dL (74-106)
[2023-04-24] MEDS: Phenobarbital 32.4 MG Tablet PO ×3 (05:21→18:15)
[2023-04-24] MEDS: hydrOXYzine PAM 25 MG Capsule 50 MG PO (05:21)
[2023-04-24] MEDS: hydrALAZINE 25 MG Tablet PO ×3 (05:21→23:48)
[2023-04-24 09:52] LABS: Cholesterol 73 mg/dL (200); High Density Lipoprotein 23 mg/dL; Triglycerides 122 mg/dL; Very Low Density Lipoprotein 24 mg/dL (5-40)
[2023-04-24] MEDS: Famotidine 20 MG Tablet 40 MG PO (10:08)
[2023-04-24] MEDS: Pantoprazole Sodium 40 MG Tablet PO (10:08)
[2023-04-24] MEDS: Metoprolol(XL)Succ 50 MG Tablet PO ×2 (10:09→23:47)
[2023-04-24] MEDS: Folic Acid 1 MG Tablet PO (10:09)
[2023-04-24] MEDS: Thiamine Hydrochloride 100 MG Tablet PO (10:09)
[2023-04-24] MEDS: Atorvastatin Calcium 10 MG Tablet PO (10:09)
[2023-04-24] MEDS: amLODIPine 5 MG Tablet PO (10:10)
[2023-04-24] MEDS: Aspirin 81 MG TAB.CHEW PO (10:13)
--- NOTE | 2023-04-24 11:08 | PN_ITS ---
Subjective Subjective Patient seen and examined. He had no active complaints and said he wanted to go home. He however remains weak and is a 2 person assist. Review of systems is otherwise negative. Objective Data Objective Data Vital Signs: Vital Signs Temp Pulse Resp BP Pulse Ox O2 Del Method O2 Flow Rate 97.5 F L 70 18 124/78 H 95 Room Air 2 04/24/23 09:57 04/24/23 10:09 04/24/23 09:57 04/24/23 09:57 04/24/23 09:57 04/24/23 09:57 04/22/23 22:00 Oxygen Flow Rate (L/min) 2 Oxygen Delivery Method Room Air Weight: 140 lb 14.006 oz Body Mass Index (BMI) 19.7 Intake & Output: Intake and Output for Last 24 Hours 04/22/23 04/23/23 04/24/23 23:59 23:59 23:59 Intake Total 2900 / 2900 1000 / 1000 1782.5 / 1782.5 Output Total 400 / 400 Balance 2500 / 2500 1000 / 1000 1782.5 / 1782.5 Lab / Micro Data 04/20/23 12:05 04/21/23 06:30 Labs: Laboratory Results - last 24 hr 04/23/23 12:29: POC Glucose 200 H 04/23/23 17:06: POC Glucose 115 H 04/23/23 21:49: POC Glucose 128 H 04/24/23 08:40: Triglycerides 122, Cholesterol 73, LDL Cholesterol 26, VLDL Cholesterol 24, HDL Cholesterol 23 L Radiography Diagnostic Testing: Radiology Impression Brain CT 04/23/23 12:47 IMPRESSION: Chronic involutional changes of the brain. Since prior study, there are focal areas of decreased attenuation in the posterior aspects of both the right and left parieto-occipital lobes. This most likely secondary to prior ischemic insult. Electronically Signed: Carlos Campos MD at 14:02 EDT , Physical Exam Const alert, oriented x3 and no apparent distress Constitutional Narrative: frail, weak. General Appearance: cooperative HEENT normocephalic, head/scalp atraumatic, moist oral mucous membranes and oropharynx normal Eyes PERRL and EOMs intact bilaterally Neck no lymphadenopathy, supple and no JVD Lymph Lymphatic: no lymphadenopathy noted and no lymphedema noted Resp normal respiratory effort, normal air movement and clear to auscultation bilaterally Cardio regular rate, regular rhythm, S1 normal heart sound, S2 normal heart sound and no murmurs GI normal to inspection, nondistended, normoactive bowel sounds, soft to palpation, non-tender and non-distended Extremity normal capillary refill, no clubbing, cyanosis or edema and no calf tenderness General Extremity: no tenderness to palpation of joints or extremities Skin General Skin Exam: no breakdown Neuro CN's II-XII intact bilaterally, no focal motor deficits, no sensory deficits noted and deep tendon reflexes 2+ bilaterally Neuro Narrative: frail, very weak. Motor Exam: strength 5/5 throughout and general weakness Psych thought process normal, cooperative and affect normal Appearance: appropriate Assessment & Plan Assessment/Plan (1) Alcohol dependence: (2) Chronic pancreatitis: PLAN: Plan #Acute alcohol withdrawal * Currently on alcohol withdrawal protocol with phenobarbital. * On thiamine, folic acid and Multi-Rl. * Adjunctive meds for symptomatic relief. * Monitor CIWA score. * # Debility due to mechanical fall * Patient noted to be very weak during this admission. Did have a fall yesterday and hit his head. CT of the brain done showed chronic involutional changes of the brain and focal areas of decreased attenuation in the posterior aspects of both the right and left parieto-occipital lobes which was present since prior study and most likely the result of prior ischemic insults. Per the record his last CT of the brain done that was seen in our records here is in August 2018. * Patient not on aspirin or Plavix and it is not clear that he is aware of this history of stroke. * Placed on p.o. aspirin 81 mg daily. Will check lipid panel also placed on high intensity statin. * PT OT on board. Fall precautions. #Chronic pancreatitis * Has a history of chronic pancreatitis due to alcohol abuse. He still drinks a nd says his last drink was the day before admission. * abdominal pain has resolved. * on Creon * counseled to quit drinking * will monitor * #Type 2 diabetes mellitus: On dapagliflozin and Lantus 10 units daily. Also on metformin. Insulin sliding scale. Accu-Cheks ACHS. #Hypertension: on hydrochlorothiazide and hydralazine as well as amlodipine and metoprolol. IV hydralazine as needed. #Hyperlipidemia: On atorvastatin. #Nonsustained Ventricular Tachycardia: On metoprolol. # History of aortic valve replacement: Stable. #GERD: PPI DVT prophylaxis: Low risk. Encourage ambulation. Disposition: In light of his weakness and debility, will benefit from placement. PT OT on board. Awaiting placement. Charges/Coding Visit Charges Inpatient E&M: 38141 Subs Hosp L2
[2023-04-24] MEDS: Insulin Lispro 100 UNIT/ML INSULN.PEN SC ×2 (11:28→23:51)
[2023-04-24 11:49] LABS: Bedside Glucose 174 mg/dL (74-106)
[2023-04-24 12:04] LABS: Bedside Glucose 122 mg/dL (74-106)
[2023-04-24 16:41] LABS: Bedside Glucose 141 mg/dL (74-106)
--- NOTE | 2023-04-24 16:55 | CASEMGMT ---
Social Work Report received by web content & social media manager Flor that will need to monitor for possible jail facility placement. This entry writer reviewed therapy evaluations and noted that patient is a moderate assisted to at this time. Confirmed with charge nurse that patient does remain confused. Chart reviewed and noted that patient's daughter Terra Melendrez is the power of divorce attorney for healthcare. [phone]. Called Terra and introduced to self and social work role. Terra reports she was aware of patient's hospitalization, as patient called Terra right before going into the hospital. I reports awareness that patient presented to the hospital for alcohol detoxification, which is not a new thing for the patient. Updated the daughter to help patient is doing, and outcome of therapy evaluations. Discussed that if patient does not bounce back and recover back to baseline, by the time patient is done with detoxification, a short-term jail facility may be appropriate. Terra reports that patient's current condition is much different than what is the norm for patient, go through detox. Terra would like a chance to talk to the patient's father, with whom the patient lives. This entry writer educated to plan to send Terra a list of nursing facilities for Renetta and Renetta's grandfather to review. Asked for palliative provide social work with three choices if in agreement with jail facility. The daughter did express desire to speak with physician, interested in an update from the physicians perspective. The daughter reports there was concern about a month ago that patient may have had a stroke, and is concerned whether patient might be having TIAs. This entry writer created a jail facility lists, generated from [facility] which includes the patient's geographical region, insurance network, and Medicare star and quality data. Send this list to the daughter's phone. Message sent to Dr. Alvarado via backline with the patient's daughter's information and request for phone call today or tomorrow. Physician reports plan to reach out to the daughter tomorrow. Plan: Anticipate jail facility, short-term. Waiting on family to help determine nursing facility choices. Social work to follow for continued appropriateness of this pending plan. -KARAN Sparks, BINDERY MANAGER *This note was generated with [employer] software. It may contain incorrect words, spelling, and punctuation that were not noted in review of the chart prior to signing*
[2023-04-25] VITALS (11 sets, daily range): BP systolic 100–134; BP diastolic 66–95; PULSE 60–70; RESP 18–20; TEMP 36.2–37; O2SAT 93–97
[2023-04-25] MEDS: 0.9% Saline Lock 10 ML Syringe IV ×2 (00:06→21:47)
[2023-04-25 01:37] LABS: Bedside Glucose 200 mg/dL (74-106)
[2023-04-25] MEDS: hydrALAZINE 25 MG Tablet PO ×3 (05:08→21:47)
[2023-04-25 07:05] LABS: Bedside Glucose 82 mg/dL (74-106)
[2023-04-25] MEDS: Famotidine 20 MG Tablet 40 MG PO (09:02)
[2023-04-25] MEDS: Folic Acid 1 MG Tablet PO (09:02)
[2023-04-25] MEDS: Pantoprazole Sodium 40 MG Tablet PO (09:02)
[2023-04-25] MEDS: amLODIPine 5 MG Tablet PO (09:02)
[2023-04-25] MEDS: Atorvastatin Calcium 10 MG Tablet PO (09:03)
[2023-04-25] MEDS: Thiamine Hydrochloride 100 MG Tablet PO (09:03)
[2023-04-25] MEDS: Insulin Lispro 100 UNIT/ML INSULN.PEN SC ×2 (11:20→15:34)
[2023-04-25] MEDS: Aspirin 81 MG TAB.CHEW PO (11:23)
--- NOTE | 2023-04-25 11:35 | PN_ITS ---
Subjective Subjective Patient seen and examined. He was alert and communicative. He had no active complaints. review of systems is otherwise negative. Objective Data Objective Data Vital Signs: Vital Signs Temp Pulse Resp BP Pulse Ox O2 Del Method O2 Flow Rate 98.3 F 60 20 H 124/95 H 94 Room Air 2 04/25/23 08:46 04/25/23 09:47 04/25/23 08:46 04/25/23 08:46 04/25/23 08:46 04/25/23 08:46 04/22/23 22:00 Oxygen Flow Rate (L/min) 2 Oxygen Delivery Method Room Air Weight: 140 lb 14.006 oz Body Mass Index (BMI) 19.7 Intake & Output: Intake and Output for Last 24 Hours 04/23/23 04/24/23 04/25/23 23:59 23:59 23:59 Intake Total 1000 / 1000 1782.5 / 1981.5 200 / 200 Balance 1000 / 1000 1782.5 / 1981. 200 / 200 Lab / Micro Data 04/20/23 12:05 04/21/23 06:30 Labs: Laboratory Results - last 24 hr 04/24/23 06:02: POC Glucose 122 H 04/24/23 11:25: POC Glucose 174 H 04/24/23 16:15: POC Glucose 141 H 04/24/23 23:50: POC Glucose 200 H 04/25/23 06:31: POC Glucose 82 Physical Exam Const alert, oriented x3 and no apparent distress Constitutional Narrative: frail, weak. General Appearance: cooperative HEENT normocephalic, head/scalp atraumatic, moist oral mucous membranes and oropharynx normal Eyes PERRL and EOMs intact bilaterally Neck no lymphadenopathy, supple and no JVD Lymph Lymphatic: no lymphadenopathy noted and no lymphedema noted Resp normal respiratory effort, normal air movement and clear to auscultation bilaterally Cardio regular rate, regular rhythm, S1 normal heart sound, S2 normal heart sound and no murmurs GI normal to inspection, nondistended, normoactive bowel sounds, soft to palpation, non-tender and non-distended Extremity normal capillary refill, no clubbing, cyanosis or edema and no calf tenderness General Extremity: no tenderness to palpation of joints or extremities Skin General Skin Exam: no breakdown Neuro CN's II-XII intact bilaterally, no focal motor deficits, no sensory deficits noted and deep tendon reflexes 2+ bilaterally Neuro Narrative: frail, very weak. Motor Exam: strength 5/5 throughout and general weakness Psych thought process normal, cooperative and affect normal Appearance: appropriate Assessment & Plan Assessment/Plan (1) Alcohol dependence: (2) Chronic pancreatitis: PLAN: Plan #Acute alcohol withdrawal * Currently on alcohol withdrawal protocol with phenobarbital. * On thiamine, folic acid and Multi-Rl. * Adjunctive meds for symptomatic relief. * Monitor CIWA score. * # Debility due to mechanical fall * Patient noted to be very weak during this admission. Did have a fall yesterday and hit his head. CT of the brain done showed chronic involutional changes of the brain and focal areas of decreased attenuation in the posterior aspects of both the right and left parieto-occipital lobes which was present since prior study and most likely the result of prior ischemic insults. Per the record his last CT of the brain done that was seen in our records here is in August 2018. * Patient not on aspirin or Plavix; patient says he is aware of previous strokes, but wasn't aware of any recent strokes. * Placed on p.o. aspirin 81 mg daily. lipid panel is WNL. Will therefore start on PO atorvasatin 20mg daily * PT OT on board. Fall precautions. #Chronic pancreatitis * Has a history of chronic pancreatitis due to alcohol abuse. He still drinks and says his last drink was the day before admission. * abdominal pain has resolved. * on Creon * counseled to quit drinking * will monitor * #Type 2 diabetes mellitus: On dapagliflozin and Lantus 10 units daily. Also on metformin. Insulin sliding scale. Accu-Cheks ACHS. #Hypertension: on hydrochlorothiazide and hydralazine as well as amlodipine and metoprolol. IV hydralazine as needed. #Hyperlipidemia: On atorvastatin. #Nonsustained Ventricular Tachycardia: On metoprolol. # History of aortic valve replacement: Stable. #GERD: PPI DVT prophylaxis: Low risk. Encourage ambulation. Disposition: In light of his weakness and debility, will benefit from placement. PT OT on board. Awaiting placement. Charges/Coding Visit Charges Inpatient E&M: 21182 Subs Hosp L2
[2023-04-25 11:38] LABS: Bedside Glucose 212 mg/dL (74-106)
[2023-04-25 15:57] LABS: Bedside Glucose 217 mg/dL (74-106)
[2023-04-25] MEDS: Ensure Plus High Protein 120 ML LIQUID PO (17:24)
[2023-04-25] MEDS: Metoprolol(XL)Succ 50 MG Tablet PO (21:48)
[2023-04-25 22:21] LABS: Bedside Glucose 126 mg/dL (74-106)
[2023-04-26] VITALS (10 sets, daily range): BP systolic 112–133; BP diastolic 67–92; PULSE 60–74; RESP 16–18; TEMP 36.6–37.1; O2SAT 94–97
[2023-04-26] MEDS: hydrALAZINE 25 MG Tablet PO ×3 (04:26→21:39)
[2023-04-26 07:26] LABS: Bedside Glucose 117 mg/dL (74-106)
--- NOTE | 2023-04-26 10:11 | ADDICTION ---
sasha met with client to discuss tx goals upon discharge. client presesnted as groggy, however he was cooperative. when asked direct questions, client was able to answer. client reported being a patient of [facility]; he doesn't know what services he receives. client requested this clinician coordinate care for an appointment. client signed reema (in paper chart). clinician coordinated care with [facility]; he is scheduled to attend case management services with [facility] on 05/04/23 at 4. client was given this information. client is precontemplative regarding AoD tx. he denies the need for residential tx.
[2023-04-26] MEDS: Famotidine 20 MG Tablet 40 MG PO (10:26)
[2023-04-26] MEDS: Thiamine Hydrochloride 100 MG Tablet PO (10:26)
[2023-04-26] MEDS: Aspirin 81 MG TAB.CHEW PO (10:27)
[2023-04-26] MEDS: Ensure Plus High Protein 120 ML LIQUID PO ×3 (10:27→16:37)
[2023-04-26] MEDS: Atorvastatin Calcium 10 MG Tablet PO (10:27)
[2023-04-26] MEDS: Folic Acid 1 MG Tablet PO (10:27)
[2023-04-26] MEDS: amLODIPine 5 MG Tablet PO (10:27)
[2023-04-26] MEDS: Pantoprazole Sodium 40 MG Tablet PO (10:28)
--- NOTE | 2023-04-26 11:05 | PN_ITS ---
Subjective Subjective Patient seen and examined. He had no active complaints. Review of systems was otherwise negative. He has remained hemodynamically stable. He is awaiting placement. Objective Data Objective Data Vital Signs: Vital Signs Temp Pulse Resp BP Pulse Ox O2 Del Method O2 Flow Rate 98.2 F 60 16 129/67 H 94 Room Air 2 04/26/23 10:35 04/26/23 10:35 04/26/23 10:35 04/26/23 10:35 04/26/23 10:35 04/26/23 10:36 04/22/23 22:00 Oxygen Flow Rate (L/min) 2 Oxygen Delivery Method Room Air Weight: 140 lb 14.006 oz Body Mass Index (BMI) 19.7 Intake & Output: Intake and Output for Last 24 Hours 04/24/23 04/25/23 04/26/23 23:59 23:59 23:59 Intake Total 1782.5 / 1981.5 200 / 300 100 / 100 Balance 1782.5 / 1981.5 200 / 300 100 / 100 Lab / Micro Data 04/20/23 12:05 04/21/23 06:30 Labs: Laboratory Results - last 24 hr 04/25/23 11:18: POC Glucose 212 H 04/25/23 15:34: POC Glucose 217 H 04/25/23 21:44: POC Glucose 126 H 04/26/23 07:02: POC Glucose 117 H Physical Exam Const alert, oriented x3 and no apparent distress Constitutional Narrative: frail, weak. General Appearance: cooperative and well developed HEENT normocephalic, head/scalp atraumatic, moist oral mucous membranes and oropharynx normal Eyes PERRL and EOMs intact bilaterally Neck no lymphadenopathy, supple and no JVD Lymph Lymphatic: no lymphadenopathy noted and no lymphedema noted Resp normal respiratory effort, normal air movement and clear to auscultation bilaterally Cardio regular rate, regular rhythm, S1 normal heart sound, S2 normal heart sound and no murmurs GI normal to inspection, nondistended, normoactive bowel sounds, soft to palpation, non-tender and non-distended Extremity normal capillary refill, no clubbing, cyanosis or edema and no calf tenderness General Extremity: no tenderness to palpation of joints or extremities Skin General Skin Exam: no breakdown Neuro CN's II-XII intact bilaterally, no focal motor deficits, no sensory deficits noted and deep tendon reflexes 2+ bilaterally Neuro Narrative: frail, very weak. Motor Exam: strength 5/5 throughout and general weakness Psych thought process normal, cooperative and affect normal Appearance: appropriate Assessment & Plan Assessment/Plan (1) Alcohol dependence: (2) Chronic pancreatitis: PLAN: Plan #Acute alcohol withdrawal * Currently on alcohol withdrawal protocol with phenobarbital. * On thiamine, folic acid and Multi-Rl. * Adjunctive meds for symptomatic relief. * Monitor CIWA score. * # Debility due to mechanical fall * Patient noted to be very weak during this admission. Did have a fall during this admission and hit his head. CT of the brain done showed chronic involutional changes of the brain and focal areas of decreased attenuation in the posterior aspects of both the right and left parieto-occipital lobes which was present since prior study and most likely the result of prior ischemic insults. Per the record his last CT of the brain done that was seen in our records here is in August 2018. * Patient not on aspirin or Plavix; patient says he is aware of previous strokes, but wasn't aware of any recent strokes. * Placed on p.o. aspirin 81 mg daily. lipid panel is WNL. On atorvastatin 10mg daily * PT OT on board. Fall precautions. #Chronic pancreatitis * Has a history of chronic pancreatitis due to alcohol abuse. He still drinks and says his last drink was the day before admission. * abdominal pain has resolved. * on Creon * counseled to quit drinking * will monitor * #Type 2 diabetes mellitus: On dapagliflozin and Lantus 10 units daily. Also on metformin. Insulin sliding scale. Accu-Cheks ACHS. #Hypertension: on hydrochlorothiazide and hydralazine as well as amlodipine and metoprolol. IV hydralazine as needed. #Hyperlipidemia: On atorvastatin. #Nonsustained Ventricular Tachycardia: On metoprolol. # History of aortic valve replacement: Stable. #GERD: PPI DVT prophylaxis: Low risk. Encourage ambulation. Disposition: In light of his weakness and debility, will benefit from placement. PT OT on board. Awaiting placement. Charges/Coding Visit Charges Inpatient E&M: 63183 Subs Hosp L2
[2023-04-26] MEDS: Insulin Lispro 100 UNIT/ML INSULN.PEN SC ×2 (11:24→21:39)
[2023-04-26 11:42] LABS: Bedside Glucose 201 mg/dL (74-106)
--- NOTE | 2023-04-26 12:06 | CASEMGMT ---
Social Work SW met with pt and introduced self and role of SW. Pt is alert and oriented during conversation and willing to talk with SW. Pt is frustrated that he has not been discharged yet and feels like he can return home at this time. SW reviewed pt's functional ability with pt. Pt is impulsive, requiring min A x1 during ambulation. Pt has a CGA for transfers. Reviewed option of going to SNF for short term rehab. Pt denies need for SNF at this time and states he will return home to his [facility] home where he lives with his 95 year old father. Pt states his uncle is able to transport and takes pt to grocery store once a week for food. SW spoke with pt regarding obtaining a walker and pt is agreeable for SW to arrange this. Pt does have 3 steps into his home and he has not practiced this with therapy. RNCM updated and physican notified that pt will be returning home at time of discharge. Sally ISSA
[2023-04-26 16:53] LABS: Bedside Glucose 84 mg/dL (74-106)
[2023-04-26] MEDS: 0.9% Saline Lock 10 ML Syringe IV (21:38)
[2023-04-26] MEDS: Metoprolol(XL)Succ 50 MG Tablet PO (21:40)
[2023-04-26 22:12] LABS: Bedside Glucose 186 mg/dL (74-106)
[2023-04-27 03:40] VITALS: BP 132/95; PULSE 74; RESP 18; TEMP 36.7; O2SAT 98
[2023-04-27 05:09] VITALS: BP 140/88; PULSE 92; RESP 18; TEMP 36.8; O2SAT 97
[2023-04-27 05:16] VITALS: BP 140/88; PULSE 92
[2023-04-27] MEDS: hydrALAZINE 25 MG Tablet PO (05:16)
[2023-04-27 07:03] LABS: Bedside Glucose 104 mg/dL (74-106)
[2023-04-27] MEDS: amLODIPine 5 MG Tablet PO (08:43)
[2023-04-27] MEDS: Thiamine Hydrochloride 100 MG Tablet PO (08:43)
[2023-04-27] MEDS: Aspirin 81 MG TAB.CHEW PO (08:43)
[2023-04-27] MEDS: Folic Acid 1 MG Tablet PO (08:43)
[2023-04-27] MEDS: Atorvastatin Calcium 10 MG Tablet PO (08:43)
[2023-04-27] MEDS: Ensure Plus High Protein 120 ML LIQUID PO (08:43)
[2023-04-27 08:44] VITALS: BP 110/78; PULSE 98
[2023-04-27] MEDS: Famotidine 20 MG Tablet 40 MG PO (08:44)
[2023-04-27] MEDS: Metoprolol(XL)Succ 50 MG Tablet PO (08:44)
[2023-04-27] MEDS: Pantoprazole Sodium 40 MG Tablet PO (08:44)
[2023-04-27 08:51] VITALS: BP 110/78; PULSE 98; RESP 16; TEMP 37.1; O2SAT 95
--- NOTE | 2023-04-27 08:51 | CASEMGMT ---
Discharge Planning A list of HH providers including quality and resource use data and consistent with the patient's preferred geographic region, medical needs, and insurance network was created in [facility] Guide.? This list was provided to the RN ZURI. Anny Fournier, Discharge Planning Asst.
--- NOTE | 2023-04-27 09:27 | CASEMGMT ---
Addendum entered by Rodolfo Horta 04/27/23 11:04: A verbal list of local in-network DME companies provided to the pt. Pt chose [facility] for FWW. Rx signed by Dr. Alvarado for FWW. Referral sent via [facility] at this time to [facility]. Awaiting return response. Original Note: ELIS CM to pt room at this time regarding DC planning. questioned pt at this time if he would be interested in HHC. Pt denies the need for this now and also denies other home going needs e/f walker. Therapy is to see this pt today prior to DC. Will await therapy note and reassess home going needs subsequently.
--- NOTE | 2023-04-27 09:30 | ADDICTION ---
clinician attempted to meet with patient. he was asleep and didn't wake up when his name was called. clinician reviewed chart; client will be discharged possibly today. client has card for upcoming [facility] appointment.
--- NOTE | 2023-04-27 10:29 | DS.PCM_ITS ---
Providers Date of Admission: 04/20/23 Date of Discharge: 04/27/23 Primary Care Physician: Dk Pathak, [facility] Reason For Visit: abd pain, detox Diagnosis Discharge Diagnosis (1) Alcohol dependence: Status: Acute Code(s): F10.20 - Alcohol dependence, uncomplicated (2) Chronic pancreatitis: Status: Chronic Code(s): K86.1 - Other chronic pancreatitis Plan #Acute alcohol withdrawal * Currently on alcohol withdrawal protocol with phenobarbital. * On thiamine, folic acid and Multi-Rl. * Adjunctive meds for symptomatic relief. * Monitor CIWA score. * # Debility due to mechanical fall * Patient noted to be very weak during this admission. Did have a fall during this admission and hit his head. CT of the brain done showed chronic involutional changes of the brain and focal areas of decreased attenuation in the posterior aspects of both the right and left parieto-occipital lobes which was present since prior study and most likely the result of prior ischemic in sults. Per the record his last CT of the brain done that was seen in our records here is in August 2018. * Patient not on aspirin or Plavix; patient says he is aware of previous strokes, but wasn't aware of any recent strokes. * Placed on p.o. aspirin 81 mg daily. lipid panel is WNL. On atorvastatin 10mg daily * PT OT on board. Fall precautions. #Chronic pancreatitis * Has a history of chronic pancreatitis due to alcohol abuse. He still drinks and says his last drink was the day before admission. * abdominal pain has resolved. * on Creon * counseled to quit drinking * will monitor * #Type 2 diabetes mellitus: On dapagliflozin and Lantus 10 units daily. Also on metformin. Insulin sliding scale. Accu-Cheks ACHS. #Hypertension: on hydrochlorothiazide and hydralazine as well as amlodipine and metoprolol. IV hydralazine as needed. #Hyperlipidemia: On atorvastatin. #Nonsustained Ventricular Tachycardia: On metoprolol. # History of aortic valve replacement: Stable. #GERD: PPI DVT prophylaxis: Low risk. Encourage ambulation. Disposition: In light of his weakness and debility, will benefit from placement. PT OT on board. Awaiting placement. Medications at Discharge Home Medications omeprazole 40 mg capsule,delayed release 40 mg PO DAILY ACID REFLUX 05/03/19 amlodipine 5 mg tablet 5 mg PO DAILY BLOOD PRESSURE 10/17/20 atorvastatin 10 mg tablet 10 mg PO DAILY CHOLESTEROL 10/17/20 hydralazine 25 mg tablet 25 mg PO TID BP 10/17/20 hydrochlorothiazide 12.5 mg tablet 12.5 mg PO DAILY BLOOD PRESSURE 10/17/20 ramipril 10 mg capsule 10 mg PO BID BLOOD PRESSURE 10/17/20 dapagliflozin propanediol 10 mg tablet (Farxiga) 10 mg PO DAILY DIABETES 09/30/21 multivitamin 1 tab PO DAILY SUPPLEMENT 11/11/21 potassium chloride 10 mEq tablet,extended release(part/cryst) 20 meq PO DAILY SUPPLEMENT 11/11/21 metoprolol succinate 50 mg tablet,extended release 24 hr 50 mg PO BID BLOOD PRESSURE #60 tabs 10/15/22 gabapentin 300 mg capsule 300 mg PO DAILY NEUROPATHY 11/14/22 insulin glargine 100 unit/mL (3 mL) subcutaneous pen (Lantus Solostar U-100 Insulin) 10 unit subcut 1200 DIABETES 11/14/22 metformin 500 mg tablet,extended release 24 hr 500 mg PO BID DIABETES 11/15/22 famotidine 40 mg tablet 40 mg PO DAILY ACID REFLUX 04/20/23 Hospital Course Operations None Procedures None Summary of Care Provided Minutes Spent on Discharge: 45 Hospital Course: Patient is a 62-year-old male with a past medical history as outlined was a dmitted through the ED on 04/20/2023 for acute alcohol withdrawal. He complained of some abdominal pain in the setting of chronic pancreatitis. Patient said his last drink was the day before admission and he drank about 2 tall boys daily. He admitted some anxiety and tremors that had no other complaints. Review of systems otherwise negative. He was admitted and managed for acute alcohol withdrawal. Lipase was not elevated. He was hydrated with fluids and given pain medication for his abdominal pain in the setting of chronic pancreatitis. He tolerated the 3-day detox process. Hospital course was complicated by mechanical fall. CT of the brain done showed no evidence of acute stroke but did show evidence of old strokes which patient was aware of. Patient did well and felt better. Plan was to discharge him to correction facility because he was weak and required 2 person assist. Patient however subsequently refused to go to correction facility and preferred to be discharged to his father's house. He remained stable and was discharged on 04/27/2023. He is follow-up with his primary care doctor within 1 to 2 weeks. Patient seen and examined prior to discharge. He had no complaints and had an uneventful night. Review of systems otherwise negative. Labs and vitals reviewed. Home medication reviewed and reconciled. Physical Exam Const alert, oriented x3 and no apparent distress Constitutional Narrative: frail, weak. General Appearance: cooperative, comfortable, well kempt and well developed HEENT normocephalic, head/scalp atraumatic, hearing grossly normal bilaterally, moist oral mucous membranes and oropharynx normal Mouth: oral and palatal mucosa normal Eyes PERRL and EOMs intact bilaterally Neck no lymphadenopathy, supple and no JVD Lymph Lymphatic: no lymphadenopathy noted and no lymphedema noted Resp normal respiratory effort, normal air movement and clear to auscultation bilaterally Cardio regular rate, regular rhythm, S1 normal heart sound, S2 normal heart sound and no murmurs GI normal to inspection, nondistended, normoactive bowel sounds, soft to palpation, non-tender and non-distended Extremity normal to inspection, full ROM, normal capillary refill, no clubbing, cyanosis or edema and no calf tenderness General Extremity: no tenderness to palpation of joints or extremities Skin no rashes or lesions noted and no wounds General Skin Exam: no breakdown Neuro oriented x3, CN's II-XII intact bilaterally, moves all extremities, no focal motor deficits, no sensory deficits noted and deep tendon reflexes 2+ bilaterally Neuro Narrative: frail Sensorium / Orientation: awake Motor Exam: strength 5/5 throughout and general weakness Psych thought process normal, cooperative and affect normal Appearance: appropriate Weight / BMI Weight Weight: 140 lb 14.006 oz Body Mass Index (BMI) 19.7 ABG / Lab / Microbiology Data 04/20/23 12:05 04/21/23 06:30 Laboratory: Laboratory Results - last 24 hr 04/26/23 11:23: POC Glucose 201 H 04/26/23 16:34: POC Glucose 84 04/26/23 21:34: POC Glucose 186 H 04/27/23 06:44: POC Glucose 104 D/C Instructions Discharge Diet: Low fat / Low cholesterol Discharge Activity: Return to Normal Activity Weight Bearing Status: Weight bearing as tolerated Call your doctor if you observe: Fever of 101 or Higher, Shortness of breath, Dizziness, Swelling in the ankles and Chest pain Meaningful Use Info Meaningful Use Diagnoses (Choose all that apply): None applicable Discharge Plan Admission Admit Date/Time: 04/20/23 15:11 Primary Reason for Your Visit: acute alcohol withdrawal Attending Provider: Ashley Alvarado Primary Care Provider: Dk Pathak NP Consulting Providers: Lucas Frausto Instructions Patient Instructions: ED Withdrawal Alcohol Discharge Orders/Prescriptions Prescriptions: Continued omeprazole 40 mg capsule,delayed release(DR/EC) 40 mg PO DAILY hydrochlorothiazide 12.5 mg tablet 12.5 mg PO DAILY atorvastatin 10 mg tablet 10 mg PO DAILY amlodipine 5 mg tablet 5 mg PO DAILY ramipril 10 mg capsule 10 mg PO BID hydralazine 25 mg tablet 25 mg PO TID dapagliflozin propanediol [Farxiga] 10 mg Tablet 10 mg PO DAILY Hold Instructions: until you speak with your diabetic clinic or PCP. multivitamin Tablet 1 tab PO DAILY potassium chloride 10 mEq tablet,ER particles/crystals 20 meq PO DAILY Patient Comments: PT STATES THEY THINK THEY ARE ON THIS MEDICATION. insulin glargine [Lantus Solostar U-100 Insulin] 100 unit/mL (3 mL) insulin pen 10 unit subcut 1200 gabapentin 300 mg Capsule 300 mg PO DAILY Patient Comments: PT STATES THEY THINK THEY ARE ON THIS MEDICATION. metformin 500 mg tablet extended release 24 hr 500 mg PO BID Patient Comments: PT STATES THEY TAKE THIS ONCE DAILY. famotidine 40 mg tablet 40 mg PO DAILY metoprolol succinate 50 mg tablet extended release 24 hr 50 mg PO BID Qty: 60 11RF Referrals / Follow Up: Dk Pathak NP, [facility] [Primary Care Provider] - Within 1 Week Disposition Disposition (needs filled in before D/C Order can be placed): Home, Self Care Charges/Coding Visit Charges Inpatient E&M: 87247 Disch Hosp >30min
--- NOTE | 2023-04-27 11:51 | PHA.DC.MR.R ---
Pharmacy [place] Med Reconciliation Pharmacy Service has performed discharge medication reconciliation for this patient. The patient's discharge medication list was reviewed for discrepancies and discrepancies were resolved. Medications at Discharge Home Medications omeprazole 40 mg capsule,delayed release 40 mg PO DAILY ACID REFLUX 06/10/18 amlodipine 5 mg tablet 5 mg PO DAILY BLOOD PRESSURE 10/17/20 atorvastatin 10 mg tablet 10 mg PO DAILY CHOLESTEROL 10/17/20 hydralazine 25 mg tablet 25 mg PO TID BP 10/17/20 hydrochlorothiazide 12.5 mg tablet 12.5 mg PO DAILY BLOOD PRESSURE 10/17/20 ramipril 10 mg capsule 10 mg PO BID BLOOD PRESSURE 10/17/20 dapagliflozin propanediol 10 mg tablet (Farxiga) 10 mg PO DAILY DIABETES 09/30/21 multivitamin 1 tab PO DAILY SUPPLEMENT 11/11/21 potassium chloride 10 mEq tablet,extended release(part/cryst) 20 meq PO DAILY SUPPLEMENT 11/11/21 metoprolol succinate 50 mg tablet,extended release 24 hr 50 mg PO BID BLOOD PRESSURE #60 tabs 10/15/22 gabapentin 300 mg capsule 300 mg PO DAILY NEUROPATHY 11/14/22 insulin glargine 100 unit/mL (3 mL) subcutaneous pen (Lantus Solostar U-100 Insulin) 10 unit subcut 1200 DIABETES 11/14/22 metformin 500 mg tablet,extended release 24 hr 500 mg PO BID DIABETES 11/15/22 famotidine 40 mg tablet 40 mg PO DAILY ACID REFLUX 04/20/23
== END 2023-04-27 11:47 | disposition home or self-care (01) | DRG 775 ==
LOC: ED 16:11 → MS3 16:57
PROVIDERS: Internal Medicine; Admitting Provider Family Medicine; Emergency Provider Emergency Medicine; PCP Nurse Practitioner Family; Visit Provider Student in an Organized Health Care Education/Training Program
DX: F10.239 Alcohol dependence with withdrawal, unspecified (principal); E11.9 Type 2 diabetes mellitus without complications; K70.11 Alcoholic hepatitis with ascites; K76.0 Fatty (change of) liver, not elsewhere classified; K86.1 Other chronic pancreatitis; I10 Essential (primary) hypertension; K21.9 Gastro-esophageal reflux disease without esophagitis; F17.200 Nicotine dependence, unspecified, uncomplicated; F41.9 Anxiety disorder, unspecified; E78.5 Hyperlipidemia, unspecified; Z95.2 Presence of prosthetic heart valve; Z79.84 Long term (current) use of oral hypoglycemic drugs; R53.81 Other malaise; Z86.73 Personal history of transient ischemic attack (TIA), and cerebral infarction without residual deficits; Y90.2 Blood alcohol level of 40-59 mg/100 ml; Z79.82 Long term (current) use of aspirin; R29.6 Repeated falls
CPT/HCPCS: 36415; 70450; 74177; 80048; 80053; 80061; 80074; 80076; 80307; 80320; 81001; 82962; 83690; 85025; 96361; 96365; 96375; 97162; 97166; 97530; 97535; 99285; 99406; J7030; Q9967; A4216; G0480; J2405

== ENCOUNTER 2023-05-09 13:30 | Inpatient (IN) | payer MEDICAID, SELFPAY ==
[2023-05-09] VITALS (52 sets, daily range): BP systolic 75–184; BP diastolic 53–140; PULSE 111–149; RESP 14–28; TEMP 36.2–37.2; O2SAT 78–100; BMI 23.8; BMI 23.3
--- NOTE | 2023-05-09 13:46 | EKG12_ITS ---
Test Reason : GENERAL Blood Pressure : / mmHG Vent. Rate : 140 BPM Atrial Rate : 140 BPM P-R Int : 112 ms QRS Dur : 100 ms QT Int : 304 ms P-R-T Axes : 024 -45 060 degrees QTc Int : 464 ms Critical Test Result: High HR Sinus tachycardia Left axis deviation Pulmonary disease pattern Abnormal ECG Confirmed by Denys Pearson ([id number]), electronic news gathering editor MAILE BALDWIN ([id number]) on 05/11/2023 10:15:28 AM Referred By: Confirmed By:Denys Pearson
--- NOTE | 2023-05-09 13:53 | EDS_ITS ---
[facility] <YADIRA Dick - Last Filed: 05/09/23 20:40> History of Present Illness Chief Complaint: Abd Pain Narrative Narrative: Patient is a 62-year-old male with diabetes, aortic valve replacement, hypertension, chronic alcohol abuse with chronic pancreatitis who presents to the emergency department for acute on chronic abdominal pain. Patient was recently admitted here on April 21, 2023, patient was admitted and discharged on the . Patient did go through a detox. Patient on discharge was offered to go to a shelter facility secondary to the weakness as well as his drinking problem. Patient refused, patient was then discharged to his father's house. Patient states since he has been home for the last 2 weeks, he has not taken any of his normal medication. He has not taken any of his heart medicine, any of his diabetic medicine, he is continuing to drink tall boys. At this time, patient is here for evaluation for acute on chronic abdominal pain. [facility] <YADIRA Dick - Last Filed: 05/09/23 20:40> [facility] Medical History AAA (abdominal aortic aneurysm) Admitted to alcohol detoxification center Adrenal nodule Alcohol dependence Alcoholism Anxiety Ascending aortic dissection (~2005) Cardiac pacemaker in situ (~06/2016) Diabetes Diabetes mellitus, type II Essential hypertension Hiatal hernia History of diabetes mellitus HTN (hypertension) Hx of hypercholesterolemia Left carotid bruit Myocardial infarct Non-sustained ventricular tachycardia Pacemaker Pacemaker Pancreatitis Pure hypercholesterolemia Right bundle branch block (RBBB) Sick sinus syndrome Smoker Substance abuse SVT (supraventricular tachycardia) Thoracic aortic aneurysm Tobacco use Home Medications omeprazole 40 mg capsule,delayed release 40 mg PO DAILY ACID REFLUX 06/10/18 [History Last Taken 04/19/23] amlodipine 5 mg tablet 5 mg PO DAILY BLOOD PRESSURE 10/17/20 [History Last Taken 04/19/23] atorvastatin 10 mg tablet 10 mg PO DAILY CHOLESTEROL 10/17/20 [History Last Taken 04/19/23] hydralazine 25 mg tablet 25 mg PO TID BP 10/17/20 [History Last Taken 04/19/23] hydrochlorothiazide 12.5 mg tablet 12.5 mg PO DAILY BLOOD PRESSURE 10/17/20 [History Last Taken 11/11/21] ramipril 10 mg capsule 10 mg PO BID BLOOD PRESSURE 10/17/20 [History Last Taken 11/11/21] dapagliflozin propanediol 10 mg tablet (Farxiga) 10 mg PO DAILY DIABETES 09/30/21 [History Last Taken 04/19/23] multivitamin 1 tab PO DAILY SUPPLEMENT 11/11/21 [History Last Taken 11/10/21] potassium chloride 10 mEq tablet,extended release(part/cryst) 20 meq PO DAILY SUPPLEMENT 11/11/21 [History Last Taken Unknown] metoprolol succinate 50 mg tablet,extended release 24 hr 50 mg PO BID BLOOD PRESSURE #60 tabs 10/15/22 [Rx Last Taken 04/19/23] gabapentin 300 mg capsule 300 mg PO DAILY NEUROPATHY 11/14/22 [History Last Taken Unknown] insulin glargine 100 unit/mL (3 mL) subcutaneous pen (Lantus Solostar U-100 Insulin) 10 unit subcut 1200 DIABETES 11/14/22 [History Last Taken 04/19/23] metformin 500 mg tablet,extended release 24 hr 500 mg PO BID DIABETES 11/15/22 [History Last Taken 04/19/23] famotidine 40 mg tablet 40 mg PO DAILY ACID REFLUX 04/20/23 [History Last Taken 04/19/23] Allergy/AdvReac Type Severity Reaction Status Date / Time No Known Allergies Allergy Verified 05/09/23 13:37 Family History Father CAD (coronary artery disease) Mother Dementia Surgical History H/O aortic valve replacement H/O cardiac catheterization History of aortic aneurysm repair (~2016) History of aortic valve replacement with bioprosthetic valve (~2016) History of cataract surgery History of hernia repair Social History (Updated 05/09/23 @ 13:38 by Myra Nova) household members: family housing: house Smoking Status: Current every day smoker tobacco type: cigarettes alcohol intake: current alcohol intake frequency: 0-2 drinks per day details: Reports currently ~ 2 tall boys daily. substance use type: former substance user caffeine: Yes Type: coffee Number of servings: 3 ROS <YADIRA Dick - Last Filed: 05/09/23 20:40> ROS ED ROS Narrative Constitutional: Negative for fever, chills, weight loss, weakness Eyes: Negative for vision loss, vision change, double vision ENT: Negative for any sore throat, ear pain, congestion Cardiovascular: Negative for any chest pain, tightness, palpitations Respiratory: Negative for any cough, sputum production, hemoptysis, dyspnea, dyspnea on exertion, orthopnea Gastrointestinal: Negative for any vomiting, diarrhea, constipation, blood in stool, blood in vomit. Positive for abdominal pain, nausea : Negative for any urinary frequency, dysuria, retention, blood in urine Muscle skeletal: Negative for any neck pain, back pain Neurological: Negative for any headache, syncope, dizziness Skin: Negative for any rashes, itching, abrasions, lacerations Psychiatric: Negative for any depression, anxiety, stress, suicidal ideation, homicidal ideation Hematologic: Negative for any excessive bruising, easy bleeding EXAM <YADIRA Dick - Last Filed: 05/09/23 20:40> Physical Exam Narrative Exam Narrative: Vital signs reviewed. Patient is tachycardic. HEET: Head normocephalic atraumatic, TMs clear bilaterally. Posterior pharynx is clear, dry mucous membranes. Nares clear bilaterally. Neck: Supple with no lymphadenopathy or tenderness. No signs of meningismus. Cardiac: Tachycardic rate, clicks secondary to aortic valve repair no murmurs gallops or rubs, equal peripheral pulses bilaterally. Respiratory: Lungs clear to auscultation bilaterally. No chest tenderness. Abdomen: Soft, nondistended. No abdominal bruit or pulsatile masses. Tenderness throughout the entire upper abdomen Extremities: Patient has left upper and bilateral lower edema, +2. No signs of gross trauma or deformity. Active full range of motion of all extremities. Neuro: Cranial nerves II through XII intact, no focal neurological deficits. Skin: Clean dry and intact with no rash, purpura, petechiae, vesicles or pustules. Backs/flank: No CVA tenderness, no midline spinal tenderness, no deformity. Psych: Normal mood and affect. No SI, HI or acute psychosis. Const Vital Signs: 05/09/23 13:31 05/09/23 13:39 05/09/23 15:04 Temperature 98.7 F Temperature Source Oral Pulse Rate 141 H 139 H Respiratory Rate 14 14 Blood Pressure 114/82 H Blood Pressure Mean 92 Pulse Ox 91 91 86 Oxygen Delivery Method Room Air Room Air Room Air Oxygen Flow Rate (L/min) 05/09/23 15:05 05/09/23 13:38 05/09/23 13:45 Temperature Temperature Source Pulse Rate 143 H 140 H Respiratory Rate 14 14 Blood Pressure 111/82 H Blood Pressure Mean 93 Pulse Ox 98 94 Oxygen Delivery Method Nasal Cannula Oxygen Flow Rate (L/min) 3 05/09/23 14:00 05/09/23 14:15 05/09/23 14:30 Temperature Temperature Source Pulse Rate 142 H Respiratory Rate 28 H Blood Pressure 96/72 97/70 Blood Pressure Mean 81 78 Pulse Ox Oxygen Delivery Method Oxygen Flow Rate (L/min) 05/09/23 14:30 05/09/23 14:45 05/09/23 14:46 Temperature Temperature Source Pulse Rate Respiratory Rate Blood Pressure 97/70 94/76 Blood Pressure Mean 78 81 Pulse Ox 78 93 Oxygen Delivery Method Oxygen Flow Rate (L/min) 05/09/23 15:00 05/09/23 15:15 05/09/23 15:30 Temperature Temperature Source Pulse Rate 124 H 119 H Respiratory Rate 16 18 Blood Pressure 104/79 105/72 87/65 L Blood Pressure Mean 89 83 72 Pulse Ox 100 98 Oxygen Delivery Method Oxygen Flow Rate (L/min) 05/09/23 15:45 05/09/23 15:50 05/09/23 16:00 Temperature Temperature Source Pulse Rate 114 H 120 H Respiratory Rate 15 15 Blood Pressure 94/67 98/72 95/71 Blood Pressure Mean 77 81 80 Pulse Ox 100 99 Oxygen Delivery Method Oxygen Flow Rate (L/min) 05/09/23 16:13 05/09/23 16:15 05/09/23 16:30 Temperature Temperature Source Pulse Rate 118 H 115 H 115 H Respiratory Rate 14 16 15 Blood Pressure 106/71 104/72 Blood Pressure Mean 83 81 Pulse Ox 96 92 Oxygen Delivery Method Oxygen Flow Rate (L/min) 05/09/23 16:45 05/09/23 17:00 05/09/23 17:15 Temperature Temperature Source Pulse Rate 115 H 114 H 133 H Respiratory Rate 17 14 16 Blood Pressure 105/77 116/81 H 184/119 H Blood Pressure Mean 86 93 137 Pulse Ox 93 94 Oxygen Delivery Method Oxygen Flow Rate (L/min) 05/09/23 17:30 05/09/23 17:45 05/09/23 18:00 Temperature Temperature Source Pulse Rate 132 H 134 H 143 H Respiratory Rate 14 17 20 H Blood Pressure 162/109 H 180/140 H 160/124 H Blood Pressure Mean 126 152 136 Pulse Ox 95 95 Oxygen Delivery Method Oxygen Flow Rate (L/min) 05/09/23 18:15 05/09/23 18:30 05/09/23 18:45 Temperature Temperature Source Pulse Rate 149 H 144 H 137 H Respiratory Rate 16 21 H 21 H Blood Pressure 157/114 H 139/120 H 133/107 H Blood Pressure Mean 124 127 116 Pulse Ox Oxygen Delivery Method Oxygen Flow Rate (L/min) 05/09/23 19:00 05/09/23 19:15 05/09/23 19:16 Temperature Temperature Source Pulse Rate 130 H 127 H 127 H Respiratory Rate 23 H 21 H 20 H Blood Pressure 93/64 113/78 Blood Pressure Mean 71 89 Pulse Ox Oxygen Delivery Method Oxygen Flow Rate (L/min) 05/09/23 20:00 05/09/23 20:06 Temperature Temperature Source Pulse Rate 135 H Respiratory Rate 24 H Blood Pressure 83/61 L Blood Pressure Mean 68 Pulse Ox 83 94 Oxygen Delivery Method Room Air Nasal Cannula Oxygen Flow Rate (L/min) 2 Positive cachectic and unkempt General Appearance ED: unkempt and cachectic Nutritional Appearance: cachectic Psych Appearance: unkempt <Dr. Carlos Augustin MD - Last Filed: 05/09/23 17:14> Physical Exam Const Vital Signs: 05/09/23 13:31 05/09/23 13:39 05/09/23 15:04 Temperature 98.7 F Temperature Source Oral Pulse Rate 141 H 139 H Respiratory Rate 14 14 Blood Pressure 114/82 H Blood Pressure Mean 92 Pulse Ox 91 91 86 Oxygen Delivery Method Room Air Room Air Room Air Oxygen Flow Rate (L/min) 05/09/23 15:05 05/09/23 13:38 05/09/23 13:45 Temperature Temperature Source Pulse Rate 143 H 140 H Respiratory Rate 14 14 Blood Pressure 111/82 H Blood Pressure Mean 93 Pulse Ox 98 94 Oxygen Delivery Method Nasal Cannula Oxygen Flow Rate (L/min) 3 05/09/23 14:00 05/09/23 14:15 05/09/23 14:30 Temperature Temperature Source Pulse Rate 142 H Respiratory Rate 28 H Blood Pressure 96/72 97/70 Blood Pressure Mean 81 78 Pulse Ox Oxygen Delivery Method Oxygen Flow Rate (L/min) 05/09/23 14:30 05/09/23 14:45 05/09/23 14:46 Temperature Temperature Source Pulse Rate Respiratory Rate Blood Pressure 97/70 94/76 Blood Pressure Mean 78 81 Pulse Ox 78 93 Oxygen Delivery Method Oxygen Flow Rate (L/min) 05/09/23 15:00 05/09/23 15:15 05/09/23 15:30 Temperature Temperature Source Pulse Rate 124 H 119 H Respiratory Rate 16 18 Blood Pressure 104/79 105/72 87/65 L Blood Pressure Mean 89 83 72 Pulse Ox 100 98 Oxygen Delivery Method Oxygen Flow Rate (L/min) 05/09/23 15:45 05/09/23 15:50 05/09/23 16:00 Temperature Temperature Source Pulse Rate 114 H 120 H Respiratory Rate 15 15 Blood Pressure 94/67 98/72 95/71 Blood Pressure Mean 77 81 80 Pulse Ox 100 99 Oxygen Delivery Method Oxygen Flow Rate (L/min) 05/09/23 16:13 05/09/23 16:15 05/09/23 16:30 Temperature Temperature Source Pulse Rate 118 H 115 H 115 H Respiratory Rate 14 16 15 Blood Pressure 106/71 104/72 Blood Pressure Mean 83 81 Pulse Ox 96 92 Oxygen Delivery Method Oxygen Flow Rate (L/min) 05/09/23 16:45 05/09/23 17:00 05/09/23 17:15 Temperature Temperature Source Pulse Rate 115 H 114 H 133 H Respiratory Rate 17 14 16 Blood Pressure 105/77 116/81 H 184/119 H Blood Pressure Mean 86 93 137 Pulse Ox 93 94 Oxygen Delivery Method Oxygen Flow Rate (L/min) 05/09/23 17:30 05/09/23 17:45 05/09/23 18:00 Temperature Temperature Source Pulse Rate 132 H 134 H 143 H Respiratory Rate 14 17 20 H Blood Pressure 162/109 H 180/140 H 160/124 H Blood Pressure Mean 126 152 136 Pulse Ox 95 95 Oxygen Delivery Method Oxygen Flow Rate (L/min) 05/09/23 18:15 05/09/23 18:30 05/09/23 18:45 Temperature Temperature Source Pulse Rate 149 H 144 H 137 H Respiratory Rate 16 21 H 21 H Blood Pressure 157/114 H 139/120 H 133/107 H Blood Pressure Mean 124 127 116 Pulse Ox Oxygen Delivery Method Oxygen Flow Rate (L/min) 05/09/23 19:00 05/09/23 19:15 05/09/23 19:16 Temperature Temperature Source Pulse Rate 130 H 127 H 127 H Respiratory Rate 23 H 21 H 20 H Blood Pressure 93/64 113/78 Blood Pressure Mean 71 89 Pulse Ox Oxygen Delivery Method Oxygen Flow Rate (L/min) 05/09/23 20:00 05/09/23 20:06 Temperature Temperature Source Pulse Rate 135 H Respiratory Rate 24 H Blood Pressure 83/61 L Blood Pressure Mean 68 Pulse Ox 83 94 Oxygen Delivery Method Room Air Nasal Cannula Oxygen Flow Rate (L/min) 2 MDM <YADIRA Dick - Last Filed: 05/09/23 20:40> MDM Lab Data Labs: Laboratory Results - last 24 hr 05/09/23 05/09/23 05/09/23 13:59 14:15 16:59 WBC 13.0 H RBC 3.25 L Hgb 11.2 L Hct 33.8 L MCV 104.0 H MCH 34.5 H MCHC 33.1 RDW Std Deviation 59.7 H RDW Coeff of Kalpana 15.7 H Plt Count 133 L MPV 12.3 H Immature Gran % (Auto) 0.800 Neut % (Auto) 92.8 H Lymph % (Auto) 2.7 L [place] % (Auto) 3.2 Eos % (Auto) 0.0 Baso % (Auto) 0.5 Absolute Neuts (auto) 12.0 H Absolute Lymphs (auto) 0.35 L Nucleated RBC % 0 Platelet Estimate ADEQUATE Macrocytosis 1+ PT 22.6 H INR 2.0 Sodium 137 Potassium 4.0 Chloride 92 L Carbon Dioxide 36.0 H Anion Gap 9 BUN 9 Creatinine 1.50 H Estim Creat Clear Calc 55.78 Est GFR (MDRD) Af Amer 61 Est GFR (MDRD) Non-Af 51 L BUN/Creatinine Ratio 6.0 L Glucose 209 H Calcium 8.0 L Total Bilirubin 1.00 Direct Bilirubin 0.48 H AST 220 H ALT 56 Alkaline Phosphatase 212 H Total Protein 5.4 L Albumin 1.5 L Globulin 3.9 Lipase < 10 L Urine Color Yellow Urine Clarity Sl. Cloudy Urine pH 8.0 Ur Specific Tyler 1.015 Urine Protein 100 H Urine Glucose (UA) Normal Urine Ketones Negative Urine Occult Blood 250 H Urine Nitrite Negative Urine Bilirubin Negative Urine Urobilinogen Normal Ur Leukocyte Esterase 500 H Urine RBC 0-5 SEEN Urine WBC 50-100 SEEN Ur Squamous Epith Cells 0 SEEN Urine Bacteria 1+ Urine Mucus 0 SEEN Radiography Diagnostic Testing: Clinical Impression(s) from Imaging Studies Chest X-Ray 05/09/23 14:36 IMPRESSION: Right lower lung infiltrate/atelectasis and trace right pleural effusion. Mild atelectatic changes in the left lung base. Electronically Signed: Jayesh Ludwig MD at 14:50 EDT , Abdomen/Pelvis CT 05/09/23 15:32 IMPRESSION: Fatty hepatic changes with small hypoattenuated nodule. Moderate ascites. Mild wall thickening of the urinary bladder. Possible mild small bowel ileus. Electronically Signed: Cade Jaramillo DO at 16:54 EDT , EKG Sinus tachycardia: Attestation: I personally reviewed and interpreted this EKG as follows: Comments: Sinus tachycardia, rate of 40 bpm, WV interval 112 ms, QRS duration 100 ms, no acute ST elevation, no acute infarct noted Treatment and Re-Evaluation :: Differential diagnosis includes however is not limited to: Acute on chronic abdominal pain, chronic pancreatitis, bowel obstruction, acute cholecystitis, GERD, ascites, portal hypertension Patient appears to be in no obvious respiratory distress, however patient could be going through alcohol withdrawal, patient's heart rate is 140, patient is in mild amount of pain secondary to pain to his abdomen. Patient appears nontoxic, no fever or chills. Patient received a full abdominal workup including CBC, BMP, liver panel as well as lipase and PT/INR. EKG shows sinus tachycardia. Anshu mclean does have some intermittent shaking. Patient will receive IV fluids 500 cc, morphine and Zofran. Patient will be reevaluated. Patient CBC shows a leukocytosis white blood count 13.0, on April 20, 2023 there were 8, this is slightly elevated, patient has chronic anemia. PT/INR was elevated with a PT of 22.6, INR of 2.0, this is likely related to liver injury. Chemistries showed a creatinine of 1.5, patient's AST is 220 which is baseline, ALT is normal, alkaline phosphatase is elevated 212, lipase is less than 10, this could be secondary to chronic pancreatitis. Patient will receive another dose of IV pain medicine, patient will also receive a CT scan of the abdomen pelvis with IV contrast. All radiologic examinations were read, reviewed by the emergency department attending. From these reads, a plan of care will be put in place. Patient CT scan of the abdomen pelvis shows fatty hepatic changes with small hypoattenuated nodule. Moderate ascites, mild wall thickening of the urinary bladder. Possible mild small bowel ileus.On reevaluation, the patient was in no distress. Patient's urinalysis was positive for infection, 1+ bacteria 500-100 white blood cells, 500 leukocytes, patient we have started on Bactrim. A urine culture will be sent. I spoke with the patient at length regarding his symptoms, patient still passing gas, patient is urinating without difficulty. Patient's vital signs have improved. Patient was sleepy because of the morphine. I spoke with the patient regarding his alcohol use, I made it clear that the patient needs to stop drinking alcohol or he could . On reevaluation, patient was still tachycardic, slight hypoxemia, this could be secondary to the morphine. Patient will be reevaluated. Patient continues to need oxygen, patient continues to have abdominal pain. Patient also had some lower blood pressure readings. At this time, due to the patient needs to be admitted to the hospital. I spoke with the hospitalist. Patient will remain on oxygen, patient be given another liter of normal saline. Patient be admitted to the hospital for pleural effusion, hypoxia, alcohol withdrawal, alcohol abuse. I spoke with hospitalist. Stable for admission <Dr. Carlos Augustin MD - Last Filed: 05/09/23 17:14> [facility] Narrative Medical decision making narrative: I have personally performed a face to face assessment of the patient and have reviewed the [facility] Note. I performed a substantive portion of the visit including all aspects of the following. My claudio findings include: History is mostly upper abdominal pain for the past week or so. Nausea but no vomiting. No bright red blood per rectum or melena. Recently admitted voluntarily to detox but then signed out AGAINST MEDICAL ADVICE and has been drinking alcohol ever since. Edema is present but the patient does not realize it. Exam is no acute distress. Abdomen mild diffuse tenderness, no guarding or rebound tenderness. No Narayan sign or Huizar Gillespie sign. No CVA tenderness. No respiratory distress speaking in full sentences heart regular. Pedal edema in his legs and his left upper extremity but not so much in his right. Neurovascular intact distally all 4 extremities. Medical Decison Making Labs obtained, his white blood count is higher than it was last time so we obtained a CT, I reviewed the images and the result which I agree with, it shows nothing acute. He does have some ascites, another area where he appears to be third spacing but he does not have a tense abdomen or problems breathing due to the degree of ascites. He also has a small right pleural effusion that looks like compressive atelectasis there on the 2 view chest x-ray which I interpreted myself, radiology interpreted this as atelectasis versus pneumonia/infiltrate, he does not have any respiratory symptoms or cough or fevers I do not think he needs to be treated for infectious etiologies here. We did treat him with IV fluids and analgesics, I do not think medically he has any indication for admission to the hospital. His heart rate is improved after the IV fluids we gave him. Other additions or changes: [None] Lab Data Labs: Laboratory Results - last 24 hr 05/09/23 05/09/23 05/09/23 13:59 14:15 16:59 WBC 13.0 H RBC 3.25 L Hgb 11.2 L Hct 33.8 L MCV 104.0 H MCH 34.5 H MCHC 33.1 RDW Std Deviation 59.7 H RDW Coeff of Kalpana 15.7 H Plt Count 133 L MPV 12.3 H Immature Gran % (Auto) 0.800 Neut % (Auto) 92.8 H Lymph % (Auto) 2.7 L [place] % (Auto) 3.2 Eos % (Auto) 0.0 Baso % (Auto) 0.5 Absolute Neuts (auto) 12.0 H Absolute Lymphs (auto) 0.35 L Nucleated RBC % 0 Platelet Estimate ADEQUATE Macrocytosis 1+ PT 22.6 H INR 2.0 Sodium 137 Potassium 4.0 Chloride 92 L Carbon Dioxide 36.0 H Anion Gap 9 BUN 9 Creatinine 1.50 H Estim Creat Clear Calc 55.78 Est GFR (MDRD) Af Amer 61 Est GFR (MDRD) Non-Af 51 L BUN/Creatinine Ratio 6.0 L Glucose 209 H Calcium 8.0 L Total Bilirubin 1.00 Direct Bilirubin 0.48 H AST 220 H ALT 56 Alkaline Phosphatase 212 H Total Protein 5.4 L Albumin 1.5 L Globulin 3.9 Lipase < 10 L Urine Color Yellow Urine Clarity Sl. Cloudy Urine pH 8.0 Ur Specific Tyler 1.015 Urine Protein 100 H Urine Glucose (UA) Normal Urine Ketones Negative Urine Occult Blood 250 H Urine Nitrite Negative Urine Bilirubin Negative Urine Urobilinogen Normal Ur Leukocyte Esterase 500 H Urine RBC 0-5 SEEN Urine WBC 50-100 SEEN Ur Squamous Epith Cells 0 SEEN Urine Bacteria 1+ Urine Mucus 0 SEEN Radiography Diagnostic Testing: Clinical Impression(s) from Imaging Studies Chest X-Ray 05/09/23 14:36 IMPRESSION: Right lower lung infiltrate/atelectasis and trace right pleural effusion. Mild atelectatic changes in the left lung base. Electronically Signed: Jayesh Ludwig MD at 14:50 EDT , Abdomen/Pelvis CT 05/09/23 15:32 IMPRESSION: Fatty hepatic changes with small hypoattenuated nodule. Moderate ascites. Mild wall thickening of the urinary bladder. Possible mild small bowel ileus. Electronically Signed: Cade Jaramillo DO at 16:54 EDT , Discharge Plan Triage Chief Complaint: Abd Pain ED Midlevel Provider: Jacky Arevalo ED Provider: Carlos Augustin Dx/Rx/DC Orders Clinical Impression: Intractable abdominal pain, Alcohol withdrawal, Pleural effusion, Hypoxia, Acute UTI Prescriptions: No Action omeprazole 40 mg capsule,delayed release(DR/EC) 40 mg PO DAILY hydrochlorothiazide 12.5 mg tablet 12.5 mg PO DAILY atorvastatin 10 mg tablet 10 mg PO DAILY amlodipine 5 mg tablet 5 mg PO DAILY ramipril 10 mg capsule 10 mg PO BID hydralazine 25 mg tablet 25 mg PO TID dapagliflozin propanediol [Farxiga] 10 mg Tablet 10 mg PO DAILY Hold Instructions: until you speak with your diabetic clinic or PCP. multivitamin Tablet 1 tab PO DAILY potassium chloride 10 mEq tablet,ER particles/crystals 20 meq PO DAILY Patient Comments: PT STATES THEY THINK THEY ARE ON THIS MEDICATION. insulin glargine [Lantus Solostar U-100 Insulin] 100 unit/mL (3 mL) insulin pen 10 unit subcut 1200 Patient Comments: pt stated he has not taken lantus for several days gabapentin 300 mg Capsule 300 mg PO DAILY Patient Comments: PT STATES THEY THINK THEY ARE ON THIS MEDICATION. metformin 500 mg tablet extended release 24 hr 500 mg PO BID Patient Comments: PT STATES THEY TAKE THIS ONCE DAILY. famotidine 40 mg tablet 40 mg PO DAILY metoprolol succinate 50 mg tablet extended release 24 hr 50 mg PO BID Qty: 60 11RF Primary Care Provider: Dk Pathak NP Referrals: Dk Pathak NP, [facility] [Primary Care Provider] - Disposition Disposition: Acute Care [facility]
[2023-05-09 14:10] LABS: Absolute Lymphocyte Count 0.35 X10^3/uL (0.83-4.51); Basophil# 0.06 X10^3/uL; Basophil% 0.5 % (0-1); Hematocrit 33.8 % (40-54); Hemoglobin 11.2 g/dL (13.0-16.5); Lymphocyte # 0.35 X10^3/ul (0.83-4.51); Lymphocyte % 2.7 % (19-41); Mean Corp Hgb Conc 33.1 g/dL (32-36); Mean Corpuscular Hgb 34.5 pg (27.0-32.0); Mean Platelet Vol. 12.3 fl (6.2-12.0); Monocyte# 0.41 X10^3/uL; Monocyte% 3.2 % (0-10); NRBC Flagged by Analyzer 0 % (0-5); Neutrophil # 12.03 X10^3/uL (2.7-7.7); Neutrophil % 92.8 % (47-70); POSITIVE DIFFERENTIAL YES; Platelet Count 133 K/mm3 (150-450); RBC Distribution Width CV 15.7 % (11.6-14.6); RBC Distribution Width SD 59.7 fl (35.1-43.9); Red Blood Count 3.25 M/mm3 (4.6-6.2)
[2023-05-09] MEDS: Ondansetron 4 MG/2 ML Vial IV (14:12)
[2023-05-09] MEDS: 0.9% Normal Saline (500mL Bag) 500 ML 999 ML IV (14:12)
[2023-05-09] MEDS: Morphine 4 MG/ML Syringe IV ×2 (14:12→15:49)
[2023-05-09 14:33] LABS: Prothrombin Time (Protime)PT. 22.6 SECONDS (11.7-14.9)
--- NOTE | 2023-05-09 14:36 | RAD_ITS ---
INDICATION: shortness of breath EXAMINATION/TECHNIQUE: X-RAY - XR Chest 2 Views COMPARISON: Prior study dated: 02/01/2022. FINDINGS: LINES/DEVICES: Left-sided cardiac pacer device in stable position. LUNGS: Right lower lung infiltrate/atelectasis. Trace right pleural effusion. Atelectatic changes in the left lung base. MEDIASTINUM AND CARDIOVASCULAR STRUCTURES: Stable cardiomediastinal silhouette. Status post median sternotomy. BONES AND SOFT TISSUES: Unremarkable. RAD/Chest PA and Lateral IMPRESSION: Right lower lung infiltrate/atelectasis and trace right pleural effusion. Mild atelectatic changes in the left lung base. Electronically Signed: Jayesh Ludwig MD at 14:50 EDT ,
[2023-05-09 14:42] LABS: AST(SGOT) 220 U/L (15-37); Alanine Aminotransfer ALT/SGPT 56 U/L (16-61); Albumin, Serum 1.5 g/dL (3.2-5.0); Alkaline Phosphatase 212 U/L (45-117); Anion Gap 9 (5-15); BUN 9 mg/dL (7-18); Bilirubin, Direct 0.48 mg/dL (0.00-0.30); Chloride 92 mmol/L (98-107); EST Glomerular Filtration Rate 51 mL/min (>60); Est Glom Filt Rate - Afr Amer 61 mL/min (>60); Estimated Creatinine Clearance 55.78 ml/min; Globulin 3.9 g/dL (2.2-4.2); Glucose 209 mg/dL (74-106); Lipase < 10 U/L (13-75); Protein, Total 5.4 g/dL (6.4-8.2); Sodium Level 137 mmol/L (136-145)
[2023-05-09 15:01] LABS: Differential Indicated SCAN CRITERIA MET
[2023-05-09 15:02] LABS: Macrocytosis 1+; Platelet Estimate ADEQUATE (ADEQ)
--- NOTE | 2023-05-09 15:32 | CT_ITS ---
STUDY: CT ABDOMEN AND PELVIS WITH CONTRAST REASON FOR EXAM: Male, 62 years old. Abdominal pain RADIATION DOSAGE (If Supplied By Facility): CTDIvol = ( 12.48 ) mGy, DLP = ( 635.18 ) mGycm TECHNIQUE: Transaxial images were obtained from the dome of the diaphragm to the symphysis pubis without oral contrast. 100 CC ISOVUE 370 was administered. Sagittal and coronal images were reconstructed. Individualized dose optimization techniques were used for this CT. COMPARISON: None. FINDINGS: Right pleural effusion with basilar atelectasis. The visualized portions of the heart are within normal limits. Fatty changes in the liver. 7 mm hypoattenuated hepatic nodule. Normal gallbladder and extrahepatic biliary system. Normal spleen. Calcifications in the pancreas likely from previous inflammation. Ascites. Normal bilateral adrenal glands. Normal right kidney. Normal left kidney. Normal visualized stomach. Slightly fluid distended left-sided small intestine. Normal colon. The appendix is visualized and appears normal. Calcified abdominal aorta. Normal inferior vena cava. Normal retroperitoneum. Mild wall thickening of the urinary bladder. Normal abdominal wall. Old left rib fractures. CT/Abdomen/Pelvis W IV Cont ONLY IMPRESSION: Fatty hepatic changes with small hypoattenuated nodule. Moderate ascites. Mild wall thickening of the urinary bladder. Possible mild small bowel ileus. Electronically Signed: Cade Jaramillo DO at 16:54 EDT ,
[2023-05-09 17:02] LABS: Mucous, Urine 0 SEEN /hpf (<or=2+); Squamous Epithelial Cells - UA 0 SEEN /hpf (0-5)
[2023-05-09 17:03] LABS: Color, Urine Yellow (Yellow); Glucose, Dipstick Normal (Normal); Ketone-Dipstick Negative (Negative); Leukocyte Esterase-Dipstick 500 /ul (Negative); Nitrite-Dipstick Negative (Negative); Occult Blood-Urine 250 /ul (Negative); Protein-Dipstick 100 mg/dl (Negative); Specific Gravity, Urine 1.015 (1.002-1.030); Urine Bilirubin Dipstick Negative (Negative); Urine Clarity Sl. Cloudy (Clear); Urine Urobilinogen Normal (Normal)
[2023-05-09 17:26] LABS: Bacteria 1+ /hpf (None Seen); Red Blood Cells-Urine 0-5 SEEN /hpf (0-5); White Blood Cells 50-100 SEEN /hpf (0-5)
[2023-05-09] MEDS: Smz/Tmp Ds Tablet 1 TABLET PO (18:12)
--- NOTE | 2023-05-09 20:34 | PCM.HP.STD ---
[facility] - General General Date of Admission: 05/09/23 Date of Service: 05/09/23 Chief Complaint: Continued EtOH and Stopped Medications. [facility] Narrative ANALILIA MELENDREZ, is a 62 M with a past medical history of essential hypertension, hyperlipidemia, diabetes mellitus type 2; of unknown control, diabetic neuropathy, history of tobacco abuse, documented history of heroin abuse (allegedly quit 10 years ago), history of coronary artery disease; status post NV, history of mechanical aortic valve replacement (2014); converted to a bioprosthetic valve (2016), is rhythm he is sick sinus syndrome; s/p pacemaker (2017), history of ascending aortic aneurysm dissection (~2005), history of SVT, chronic macrocytic anemia, chronic microcytic anemia, GERD; with history of hiatal hernia, chronic severe protein-calorie malnutrition and chronic alcoholic pancreatitis; attributed to chronic severe and ongoing alcohol abuse with recent admission here from April 21, 2023 to April 27, 2023 for help with alcohol detoxification with patient offered to go to a penitentiary facility upon discharge which he refused to so he could be discharged to his father's home who now re-presents to [facility] ER complaining of abdominal pain. Unfortunately, Mr. Melendrez has continued to drink at least 2 tall boy sized servings of [employer] Lemon[employer] daily over the past 2 weeks without corresponding worsening of his chronic abdominal pain. He also reports not being able to take his normal medications over that timeframe as well. He denies associated fever, chills, nausea or vomiting and he describes his abdominal pain is generalized and cramping made worse with palpation over his epigastrium. In the ER he was noted to have a urinalysis positive for acute cystitis; without hematuria with bibasilar atelectasis gated by CT evidence of right pleural effusion with bibasilar atelectasis with fatty liver, moderate ascites and possible mild small bowel ileus with mild wall thickening of the urinary bladder in the setting of impending alcohol withdrawal due to chronic recalcitrant alcohol abuse and worsening abdominal pain due to chronic alcoholic pancreatitis and he was then admitted to the general medical floor for ongoing care for a stated expected to be greater than 48 hours. [facility] Medical History AAA (abdominal aortic aneurysm) Abdominal ascites Admitted to alcohol detoxification center Adrenal nodule Alcohol abuse Alcohol dependence Alcohol dependence Alcoholic hepatitis Alcoholism Anxiety Ascending aortic dissection (~2005) Cardiac pacemaker in situ (~06/2016) Chronic pancreatitis Diabetes Diabetes mellitus, type II Essential hypertension Gastric wall thickening Hiatal hernia History of diabetes mellitus HTN (hypertension) Hx of hypercholesterolemia Left carotid bruit Myocardial infarct Non-sustained ventricular tachycardia Pacemaker Pacemaker Pancreatitis Pure hypercholesterolemia Right bundle branch block (RBBB) Seizures Sick sinus syndrome Smoker Substance abuse SVT (supraventricular tachycardia) Thoracic aortic aneurysm Tobacco use Home Medications omeprazole 40 mg capsule,delayed release 40 mg PO DAILY ACID REFLUX 06/10/18 [History Last Taken 04/19/23] amlodipine 5 mg tablet 5 mg PO DAILY BLOOD PRESSURE 10/17/20 [History Last Taken 04/19/23] atorvastatin 10 mg tablet 10 mg PO DAILY CHOLESTEROL 10/17/20 [History Last Taken 04/19/23] hydralazine 25 mg tablet 25 mg PO TID BP 10/17/20 [History Last Taken 04/19/23] hydrochlorothiazide 12.5 mg tablet 12.5 mg PO DAILY BLOOD PRESSURE 10/17/20 [History Last Taken 11/11/21] ramipril 10 mg capsule 10 mg PO BID BLOOD PRESSURE 10/17/20 [History Last Taken 11/11/21] dapagliflozin propanediol 10 mg tablet (Farxiga) 10 mg PO DAILY DIABETES 09/30/21 [History Last Taken 04/19/23] multivitamin 1 tab PO DAILY SUPPLEMENT 11/11/21 [History Last Taken 11/10/21] potassium chloride 10 mEq tablet,extended release(part/cryst) 20 meq PO DAILY SUPPLEMENT 11/11/21 [History Last Taken Unknown] metoprolol succinate 50 mg tablet,extended release 24 hr 50 mg PO BID BLOOD PRESSURE #60 tabs 10/15/22 [Rx Last Taken 04/19/23] gabapentin 300 mg capsule 300 mg PO DAILY NEUROPATHY 11/14/22 [History Last Taken Unknown] insulin glargine 100 unit/mL (3 mL) subcutaneous pen (Lantus Solostar U-100 Insulin) 10 unit subcut 1200 DIABETES 11/14/22 [History Last Taken 04/19/23] metformin 500 mg tablet,extended release 24 hr 500 mg PO BID DIABETES 11/15/22 [History Last Taken 04/19/23] famotidine 40 mg tablet 40 mg PO DAILY ACID REFLUX 04/20/23 [History Last Taken 04/19/23] Allergy/AdvReac Type Severity Reaction Status Date / Time No Known Allergies Allergy Verified 05/09/23 13:37 Family History Father CAD (coronary artery disease) Mother Dementia Surgical History H/O aortic valve replacement H/O cardiac catheterization History of aortic aneurysm repair (~2017) History of aortic valve replacement with bioprosthetic valve (~2016) History of cataract surgery History of hernia repair Social History (Updated 05/09/23 @ 13:38 by Myra Nova) household members: family housing: house Smoking Status: Current every day smoker tobacco type: cigarettes alcohol intake: current alcohol intake frequency: 0-2 drinks per day details: Reports currently ~ 2 tall boys daily. substance use type: former substance user caffeine: Yes Type: coffee Number of servings: 3 Vital Signs Vital Signs Vital Signs: 05/09/23 13:31 05/09/23 13:39 05/09/23 15:04 Temperature 98.7 F Temperature Source Oral Pulse Rate 141 H 139 H Respiratory Rate 14 14 Blood Pressure 114/82 H Blood Pressure Mean 92 Pulse Ox 91 91 86 Oxygen Delivery Method Room Air Room Air Room Air Oxygen Flow Rate (L/min) 05/09/23 15:05 05/09/23 13:38 05/09/23 13:45 Temperature Temperature Source Pulse Rate 143 H 140 H Respiratory Rate 14 14 Blood Pressure 111/82 H Blood Pressure Mean 93 Pulse Ox 98 94 Oxygen Delivery Method Nasal Cannula Oxygen Flow Rate (L/min) 3 05/09/23 14:00 05/09/23 14:15 05/09/23 14:30 Temperature Temperature Source Pulse Rate 142 H Respiratory Rate 28 H Blood Pressure 96/72 97/70 Blood Pressure Mean 81 78 Pulse Ox Oxygen Delivery Method Oxygen Flow Rate (L/min) 05/09/23 14:30 05/09/23 14:45 05/09/23 14:46 Temperature Temperature Source Pulse Rate Respiratory Rate Blood Pressure 97/70 94/76 Blood Pressure Mean 78 81 Pulse Ox 78 93 Oxygen Delivery Method Oxygen Flow Rate (L/min) 05/09/23 15:00 05/09/23 15:15 05/09/23 15:30 Temperature Temperature Source Pulse Rate 124 H 119 H Respiratory Rate 16 18 Blood Pressure 104/79 105/72 87/65 L Blood Pressure Mean 89 83 72 Pulse Ox 100 98 Oxygen Delivery Method Oxygen Flow Rate (L/min) 05/09/23 15:45 05/09/23 15:50 05/09/23 16:00 Temperature Temperature Source Pulse Rate 114 H 120 H Respiratory Rate 15 15 Blood Pressure 94/67 98/72 95/71 Blood Pressure Mean 77 81 80 Pulse Ox 100 99 Oxygen Delivery Method Oxygen Flow Rate (L/min) 05/09/23 16:13 05/09/23 16:15 05/09/23 16:30 Temperature Temperature Source Pulse Rate 118 H 115 H 115 H Respiratory Rate 14 16 15 Blood Pressure 106/71 104/72 Blood Pressure Mean 83 81 Pulse Ox 96 92 Oxygen Delivery Method Oxygen Flow Rate (L/min) 05/09/23 16:45 05/09/23 17:00 05/09/23 17:15 Temperature Temperature Source Pulse Rate 115 H 114 H 133 H Respiratory Rate 17 14 16 Blood Pressure 105/77 116/81 H 184/119 H Blood Pressure Mean 86 93 137 Pulse Ox 93 94 Oxygen Delivery Method Oxygen Flow Rate (L/min) 05/09/23 17:30 05/09/23 17:45 05/09/23 18:00 Temperature Temperature Source Pulse Rate 132 H 134 H 143 H Respiratory Rate 14 17 20 H Blood Pressure 162/109 H 180/140 H 160/124 H Blood Pressure Mean 126 152 136 Pulse Ox 95 95 Oxygen Delivery Method Oxygen Flow Rate (L/min) 05/09/23 18:15 05/09/23 18:30 05/09/23 18:45 Temperature Temperature Source Pulse Rate 149 H 144 H 137 H Respiratory Rate 16 21 H 21 H Blood Pressure 157/114 H 139/120 H 133/107 H Blood Pressure Mean 124 127 116 Pulse Ox Oxygen Delivery Method Oxygen Flow Rate (L/min) 05/09/23 19:00 05/09/23 19:15 05/09/23 19:16 Temperature Temperature Source Pulse Rate 130 H 127 H 127 H Respiratory Rate 23 H 21 H 20 H Blood Pressure 93/64 113/78 Blood Pressure Mean 71 89 Pulse Ox Oxygen Delivery Method Oxygen Flow Rate (L/min) 05/09/23 20:00 05/09/23 20:06 Temperature Temperature Source Pulse Rate 135 H Respiratory Rate 24 H Blood Pressure 83/61 L Blood Pressure Mean 68 Pulse Ox 83 94 Oxygen Delivery Method Room Air Nasal Cannula Oxygen Flow Rate (L/min) 2 Weight Weight: 170 lb 10.205 oz Body Mass Index (BMI) 23.8 Results Lab / Micro Data 05/09/23 13:59 05/09/23 13:59 Labs: Laboratory Results - last 24 hr 05/09/23 13:59: WBC 13.0 H, RBC 3.25 L, Hgb 11.2 L, Hct 33.8 L, MCV 104.0 H, MCH 34.5 H, MCHC 33.1, RDW Std Deviation 59.7 H, RDW Coeff of [place] 15.7 H, Plt Count 133 L, MPV 12.3 H, Immature Gran % (Auto) 0.800, Neut % (Auto) 92.8 H, Lymph % (Auto) 2.7 L, [place] % (Auto) 3.2, Eos % (Auto) 0.0, Baso % (Auto) 0.5, Absolute Neuts (auto) 12.0 H, Absolute Lymphs (auto) 0.35 L, Nucleated RBC % 0, Platelet Estimate ADEQUATE, Macrocytosis 1+, Sodium 137, Potassium 4.0, Chloride 92 L, Carbon Dioxide 36.0 H, Anion Gap 9, BUN 9, Creatinine 1.50 H, Estim Creat Clear Calc 55.78, Est GFR (MDRD) Af Amer 61, Est GFR (MDRD) Non-Af 51 L, BUN/Creatinine Ratio 6.0 L, Glucose 209 H, Calcium 8.0 L, Total Bilirubin 1.00, Direct Bilirubin 0.48 H, AST 220 H, ALT 56, Alkaline Phosphatase 212 H, Total Protein 5.4 L, Albumin 1.5 L, Globulin 3.9, Lipase < 10 L 05/09/23 14:15: PT 22.6 H, INR 2.0 05/09/23 16:59: Urine Color Yellow, Urine Clarity Sl. Cloudy, Urine pH 8.0, Ur Specific [place] 1.015, Urine Protein 100 H, Urine Glucose (UA) Normal, Urine Ketones Negative, Urine Occult Blood 250 H, Urine Nitrite Negative, Urine Bilirubin Negative, Urine Urobilinogen Normal, Ur Leukocyte Esterase 500 H, Urine RBC 0-5 SEEN, Urine WBC 50-100 SEEN, Ur Squamous Epith Cells 0 SEEN, Urine Bacteria 1+, Urine Mucus 0 SEEN Imaging Radiology Impression Chest X-Ray 05/09/23 14:36 IMPRESSION: Right lower lung infiltrate/atelectasis and trace right pleural effusion. Mild atelectatic changes in the left lung base. Electronically Signed: Jayesh Ludwig MD at 14:50 EDT , Abdomen/Pelvis CT 05/09/23 15:32 IMPRESSION: Fatty hepatic changes with small hypoattenuated nodule. Moderate ascites. Mild wall thickening of the urinary bladder. Possible mild small bowel ileus. Electronically Signed: Cade Jaramillo DO at 16:54 EDT , Assessment & Plan Assessment/Plan (1) Acute cystitis without hematuria: (2) Alcohol withdrawal: QUALIFIERS: Complication of substance-induced condition: uncomplicated Qualified Code(s): F10.930 - Alcohol use, unspecified with withdrawal, uncomplicated (3) Chronic alcohol abuse: (4) Chronic pancreatitis due to chronic alcoholism: (5) Protein-calorie malnutrition, severe: (6) Medically noncompliant: PLAN: Plan 1. Acute cystitis; without hematuria - Admit to general medical floor with telemetry monitoring under aspiration and seizure precautions. Continue IV Rocephin and await culture and sensitivity data. Avoid Tylenol and other potentially hepatotoxic agents and his chronic recalcitrant alcoholic. 2. Chronic recalcitrant alcohol abuse with impending alcohol withdrawal and abdominal pain exacerbated by continued alcohol abuse in the setting of chronic alcoholic pancreatitis after recent admission here from April 21, 2023 to April 27, 2023 with patient refusing to go to an ECF in favor of going home with his father complicating #1 - Keep n.p.o. for now and start Protonix 40 mg IV twice daily. Give Zofran IV as needed nausea and vomiting. Alcohol cessation was once again strongly encouraged. Orders will be written for alcohol withdrawal protocol focusing mainly on phenobarbital taper. 3. [id number] severe protein calorie malnutrition with hypoalbuminemia of 1.5 g/dL present on admission compounding #1 & #2 - Check prealbumin to confirm suspicion. We will consult clinical dietitian sees patient on rounds in the a.m. for further recommendations without appreciated in advance. 4. Alcohol induced coagulopathy with INR of 2 present on admission suspected to be due to chronic liver disease with poor synthetic function of clotting factors adding to the pathology of #1 - #3 - Give multivitamin daily. Check PT/INR daily to follow trend. Avoid any other blood thinners with patient over auto-anticoagulated due to alcohol-induced chronic liver disease with ascites noted on admission CT. 5. Medical noncompliance with patient failing to take any of his medications since his previous admission approximately 12 days ago exacerbating #1 to #4 - Patient was encouraged to take his medications as prescribed to avoid continuing this repeating pattern of serial readmission. 6. Essential hypertension - Hold scheduled antihypertensives until patient is medically stabilized and then restart home regimen gradually as tolerated. 7. Hyperlipidemia - Resume statin when patient resumes oral intake. 8. Diabetes mellitus type 2; of unknown control with diabetic neuropathy - NPO for now. FSBS q. 6 hours. Check hemoglobin A1c to objectively evaluate quality of diabetic control. 9. History of tobacco abuse - Tobacco cessation will be strongly encouraged with nicotine patch offered to control cravings. 10. Documented history of heroin abuse (allegedly quit 10 years ago) - Check [place] urine drug screen this admission. 11. History of coronary artery disease; status post NV - Stable. Continue home regimen as previous. 12. History of mechanical aortic valve replacement (2014); converted to a bioprosthetic valve (2017) - Noted. 13. History of Sick Sinus Syndrome; s/p pacemaker (2017) - Noted. 14. History of ascending aortic aneurysm dissection (~2005) - Noted. 15. History of SVT - Stable with no evidence of recurrence. 16. Chronic macrocytic anemia - Stable. 17. GERD; with history of hiatal hernia - Stable with patient initiated on Protonix 40 mg IV BID on admission. 18. DVT prophylaxis - SCD's only in light of #4. Total time: Approximately 75 minutes. Charges/Coding Visit Charges Inpatient E&M: 28054 Init Hosp L3
[2023-05-09] MEDS: 0.9% Normal Saline (1000mL) 1,000 ML 1000 ML IV (20:40)
[2023-05-09] MEDS: Albumin Human 25% (100 mL) 25 GM/100 ML BAG IV (21:49)
[2023-05-09] MEDS: Phenobarbital 32.4 MG Tablet 64.8 MG PO (22:49)
[2023-05-09] MEDS: Lactobacillis Acidophilus 2 CAP PO (22:49)
[2023-05-09] MEDS: Ceftriaxone 1 GM/50 ML BAG IV (23:00)
[2023-05-09] MEDS: Pantoprazole Sodium 40 MG in 0.9% Normal Saline (100mL MB+) 100 ML 330 MG IV (23:00)
[2023-05-09] MEDS: 0.9% Normal Saline (1000mL) 1,000 ML 50 ML IV (23:35)
[2023-05-10] VITALS (24 sets, daily range): BP systolic 68–126; BP diastolic 48–101; PULSE 67–114; RESP 13–22; TEMP 36.2–37.8; O2SAT 91–100; BMI 23.3
[2023-05-10] MEDS: Phenobarbital 32.4 MG Tablet 64.8 MG PO ×5 (02:18→22:28)
[2023-05-10] MEDS: Nystatin Powder 15gm Bottle 1 APPLIC TOPICAL ×3 (02:20→22:57)
[2023-05-10] MEDS: Ketorolac 30 MG/ML Syringe 15 MG IM (06:47)
[2023-05-10 07:55] LABS: Absolute Lymphocyte Count 0.32 X10^3/uL (0.83-4.51); Absolute Neutrophil Count 12.9 X10^3/uL (2.0-7.7); Basophil# 0.07 X10^3/uL; Basophil% 0.5 % (0-1); Hematocrit 26.2 % (40-54); Hemoglobin 8.5 g/dL (13.0-16.5); Lymphocyte # 0.32 X10^3/ul (0.83-4.51); Lymphocyte % 2.3 % (19-41); Mean Corp Hgb Conc 32.4 g/dL (32-36); Mean Corpuscular Hgb 34.4 pg (27.0-32.0); Mean Corpuscular Volume 106.1 fL (80-94); Mean Platelet Vol. 13.1 fl (6.2-12.0); Monocyte# 0.27 X10^3/uL; NRBC Flagged by Analyzer 0 % (0-5); Neutrophil # 12.92 X10^3/uL (2.7-7.7); Neutrophil % 94.5 % (47-70); POSITIVE COUNT YES; POSITIVE DIFFERENTIAL YES; POSITIVE MORPHOLOGY YES; Platelet Count 55 K/mm3 (150-450); RBC Distribution Width CV 16.2 % (11.6-14.6); RBC Distribution Width SD 63.3 fl (35.1-43.9); Red Blood Count 2.47 M/mm3 (4.6-6.2); White Blood Count 13.7 K/mm3 (4.4-11.0)
[2023-05-10 07:58] LABS: Differential Indicated SCAN CRITERIA MET
[2023-05-10 08:20] LABS: ALB/GLOB Ratio 0.6 RATIO (0.9-2.4); AST(SGOT) 86 U/L (15-37); Alanine Aminotransfer ALT/SGPT 34 U/L (16-61); Albumin, Serum 1.7 g/dL (3.2-5.0); Alkaline Phosphatase 154 U/L (45-117); Anion Gap 7 (5-15); BUN 14 mg/dL (7-18); BUN/Creat Ratio 7.3 RATIO (10-20); Calcium,Total 7.5 mg/dL (8.5-10.1); Chloride 94 mmol/L (98-107); Creatinine, Serum 1.92 mg/dL (0.70-1.30); EST Glomerular Filtration Rate 38 mL/min (>60); Est Glom Filt Rate - Afr Amer 46 mL/min (>60); Estimated Creatinine Clearance 43.58 ml/min; Globulin 2.8 g/dL (2.2-4.2); Glucose 181 mg/dL (74-106); Magnesium 2.7 mg/dL (1.6-2.6); Phosphorus 4.7 mg/dL (2.5-4.9); Potassium 4.1 mmol/L (3.5-5.1); Protein, Total 4.5 g/dL (6.4-8.2); Sodium Level 134 mmol/L (136-145); Thyroid Stim Hormone (TSH) 0.89 uIU/mL (0.358-3.74)
[2023-05-10 08:24] LABS: Platelet Estimate MOD DEC (ADEQ)
[2023-05-10] MEDS: Potassium Chloride Oral Tablet 20 MEQ PO (08:29)
[2023-05-10] MEDS: Metoprolol(XL)Succ 25 MG Tablet PO (08:29)
[2023-05-10] MEDS: Folic Acid 1 MG Tablet PO (08:29)
[2023-05-10] MEDS: Lactobacillis Acidophilus 2 CAP PO ×2 (08:29→22:44)
[2023-05-10] MEDS: Multivitamins,Therapeutic Tablet 1 TABLET PO (08:29)
[2023-05-10] MEDS: Thiamine Hydrochloride 100 MG Tablet PO (08:29)
[2023-05-10] MEDS: 0.9% Normal Saline (500mL Bag) 500 ML 999 ML IV (08:35)
[2023-05-10] MEDS: Gabapentin 300 MG Capsule PO (08:35)
--- NOTE | 2023-05-10 09:53 | PN.HOSP_ITS ---
Reason for Visit Reason for Visit: Diagnoses Unspecified severe protein-calorie malnutrition (05/09/23) Alcohol abuse, uncomplicated (05/09/23) Alcohol dependence, uncomplicated (05/09/23) Alcohol use, unspecified with withdrawal, uncomplicated (05/09/23) Alcohol-induced chronic pancreatitis (05/09/23) Acute cystitis without hematuria (05/09/23) Patient's noncompliance with other medical treatment and regimen due to unsp ecified reason (05/09/23) Objective Data Objective Data Vital Signs: Vital Signs Temp Pulse Resp BP Pulse Ox O2 Del Method O2 Flow Rate 98.7 F 97 16 84/58 L 95 Nasal Cannula 3 05/10/23 09:02 05/10/23 09:02 05/10/23 09:02 05/10/23 09:02 05/10/23 09:02 05/10/23 09:02 05/10/23 09:02 Oxygen Flow Rate (L/min) 3 Oxygen Delivery Method Nasal Cannula Weight: 75.75 kg Body Mass Index (BMI) 23.3 Intake & Output: Intake and Output for Last 24 Hours 05/08/23 05/09/23 05/10/23 23:59 23:59 23:59 Intake Total 1760 / 1760 500 / 500 Balance 1760 / 1760 500 / 500 Lab / Micro Data 05/10/23 07:05 05/10/23 07:05 Labs: Laboratory Results - last 24 hr 05/09/23 13:59: WBC 13.0 H, RBC 3.25 L, Hgb 11.2 L, Hct 33.8 L, MCV 104.0 H, MCH 34.5 H, MCHC 33.1, RDW Std Deviation 59.7 H, RDW Coeff of [place] 15.7 H, Plt Count 133 L, MPV 12.3 H, Immature Gran % (Auto) 0.800, Neut % (Auto) 92.8 H, Lymph % (Auto) 2.7 L, [place] % (Auto) 3.2, Eos % (Auto) 0.0, Baso % (Auto) 0.5, Absolute Neuts (auto) 12.0 H, Absolute Lymphs (auto) 0.35 L, Nucleated RBC % 0, Platelet Estimate ADEQUATE, Macrocytosis 1+, Sodium 137, Potassium 4.0, Chloride 92 L, Carbon Dioxide 36.0 H, Anion Gap 9, BUN 9, Creatinine 1.50 H, Estim Creat Clear Calc 55.78, Est GFR (MDRD) Af Amer 61, Est GFR (MDRD) Non-Af 51 L, BUN /Creatinine Ratio 6.0 L, Glucose 209 H, Calcium 8.0 L, Total Bilirubin 1.00, Direct Bilirubin 0.48 H, AST 220 H, ALT 56, Alkaline Phosphatase 212 H, Total Protein 5.4 L, Albumin 1.5 L, Globulin 3.9, Prealbumin 8.0 L, Lipase < 10 L 05/09/23 14:15: PT 22.6 H, INR 2.0 05/09/23 16:59: Urine Color Yellow, Urine Clarity Sl. Cloudy, Urine pH 8.0, Ur Specific [place] 1.015, Urine Protein 100 H, Urine Glucose (UA) Normal, Urine Ketones Negative, Urine Occult Blood 250 H, Urine Nitrite Negative, Urine Bilirubin Negative, Urine Urobilinogen Normal, Ur Leukocyte Esterase 500 H, Urine RBC 0-5 SEEN, Urine WBC 50-100 SEEN, Ur Squamous Epith Cells 0 SEEN, Urine Bacteria 1+, Urine Mucus 0 SEEN, Ur Drug Screen Comment 05/10/23 07:05: WBC 13.7 H, RBC 2.47 L, Hgb 8.5 L, Hct 26.2 L, MCV 106.1 H, MCH 34.4 H, MCHC 32.4, RDW Std Deviation 63.3 H, RDW Coeff of [place] 16.2 H, Plt Count 55 L, MPV 13.1 H, Immature Gran % (Auto) 0.700, Neut % (Auto) 94.5 H, Lymph % (Auto) 2.3 L, [place] % (Auto) 2.0, Eos % (Auto) 0.0, Baso % (Auto) 0.5, Absolute Neuts (auto) 12.9 H, Absolute Lymphs (auto) 0.32 L, Nucleated RBC % 0, Platelet Estimate MOD DEC, Sodium 134 L, Potassium 4.1, Chloride 94 L, Carbon Dioxide 33.0 H, Anion Gap 7, BUN 14, Creatinine 1.92 H, Estim Creat Clear Calc 43.58, Est GFR (MDRD) Af Amer 46 L, Est GFR (MDRD) Non-Af 38 L, BUN/Creatinine Ratio 7.3 L, Glucose 181 H, Calcium 7.5 L, Phosphorus 4.7, Magnesium 2.7 H, Total Bilirubin 0.60, AST 86 H, ALT 34, Alkaline Phosphatase 154 H, Total Protein 4.5 L, Albumin 1.7 L, Globulin 2.8, Albumin/Globulin Ratio 0.6 L, TSH 0.89 Radiography Diagnostic Testing: Radiology Impression Chest X-Ray 05/09/23 14:36 IMPRESSION: Right lower lung infiltrate/atelectasis and trace right pleural effusion. Mild atelectatic changes in the left lung base. Electronically Signed: Jayesh Ludwig MD at 14:50 EDT , Abdomen/Pelvis CT 05/09/23 15:32 IMPRESSION: Fatty hepatic changes with small hypoattenuated nodule. Moderate ascites. Mild wall thickening of the urinary bladder. Possible mild small bowel ileus. Electronically Signed: Cade Jaramillo DO at 16:54 EDT , Assessment & Plan Assessment/Plan (1) Sepsis: PLAN: Plan Patient is a 62-year-old gentleman with multiple comorbidities admitted with acute alcohol withdrawal. Patient had recently been discharged from the [facility] placement which he refused. He was also found to be hypotensive with acute cystitis on admission. 1. Sepsis ? Secondary to acute cystitis as evidenced by the presence of an infection, SIRS criteria as well as evidence of endorgan dysfunction with acute kidney injury as well as hypotension. Sepsis protocol initiated ordered lactic acid level blood cultures patient already on Rocephin patient resuscitated with IV fluids per protocol transferred to the intensive care unit in guarded ordered for PICC line. If patient does not respond to fluid resuscitation plan will be to start patient on norepinephrine. Consult placed to wharf builder ? 2. Chronic alcohol dependence with acute alcohol withdrawal ? Admitted to regular nursing floor managed with phenobarb taper.? Patient progressed being monitored with CIWA protocol ? 11/13/2021 less tremulous compared to previous day 3. Acute kidney injury ? Patient started on IV fluids subsequent monitoring of electrolytes ordered 4. Mild hyponatremia ? Secondary to chronic alcohol abuse monitoring 5. Coagulopathy ? Secondary to chronic liver disease from patient chronic alcohol use 6. Acute transaminitis ? Monitoring 7.? Diabetes mellitus type II -Continue patient on his home regimen in addition to Accu-Cheks before meals and at bedtime with sliding scale coverage 8.? Sick sinus syndrome ? Status post pacemaker placement 9.? History of ascending aortic dissection ? Status post repair 10.? Valvular heart disease - history of aortic valve replacement with bioprosthetic material 11.? Hypertension - Blood pressure low on admission antihypertensives held 12. Dyslipidemia -Patient is on statin therapy, continued at home dose 13. GERD ? On famotidine 14. DVT prophylaxis ? SCDs only given that patient coagulopathic critical time spent in the patient's overall evaluation,decision-making process, review of diagnostic data, adjustment of management, discussion with other providers, nursing nursing and ancillary staff involved in patient's care documentation, 75 Minutes Sepsis Attestation Sepsis Alert: Yes Date exam was performed: 05/10/23 Time exam was performed: 10:08 Possible Source of Sepsis: Genitourinary Sepsis Organ Dysfunction Criteria Present: SBP < 90 mmHg or MAP < 65 mmHg and INR > 1.5 or aPTT > 60 sec Fluid Resuscitation Fluid resuscitation indicated?: Yes Fluid Resuscitation ordered: 30 ml/kg fluid bolus ordered Sepsis Note Date exam was performed: 05/10/23 Time exam was performed: 13:47 Sepsis Attestation: Sepsis re-evaluation was performed Response to fluids: Fluid responsive hypotension Charges/Coding Multi [employer] Codes Hospitalists' Procedures Procedures: 26589 Critical Care 1st [place]r [place] [address] Advncd Care Plan addl 30 Min
[2023-05-10 09:56] LABS: Amphetamine Urine VISTA NEGATIVE (<1000 ng/mL); Barbiturate Urine VISTA POSITIVE (< 200 ng/mL); Benzodiazepine Urine VISTA NEGATIVE (< 200 ng/mL); Cocaine Urine VISTA NEGATIVE (< 300 ng/mL); Ecstacy Urine VISTA NEGATIVE (< 500 ng/mL); Methadone Urine VISTA NEGATIVE (< 300 ng/mL); PCP Urine VISTA NEGATIVE (< 25 ng/mL); THC Urine VISTA NEGATIVE (< 50 ng/mL); Vista UDS pH Range 7
--- NOTE | 2023-05-10 10:53 | NURSING ---
called report to icu pt transferred
[2023-05-10] MEDS: 0.9% Normal Saline (1000mL) 1,000 ML 999 ML IV ×3 (11:02→13:19)
[2023-05-10] MEDS: 0.9% Normal Saline (250mL Bag) 250 ML 15 ML IV (11:02)
[2023-05-10 11:18] LABS: Lactic Acid 4.4 mmol/L (0.4-1.9)
--- NOTE | 2023-05-10 11:29 | CON.PCM.CC_ITS ---
Assessment & Plan Assessment/Plan (1) Sepsis: PLAN: Plan RECOMMENDATIONS: 1. Continue fluid resuscitation as ordered. 2. If the patient has persistent hypotension after fluid administration, initiate vasopressor support. 3. Obtain follow-up lactate per protocol. 4. Broaden antimicrobials to vancomycin and Zosyn, as ordered. Check MRSA screen. 5. Symptomatic management of any alcohol withdrawal symptoms. IMPRESSIONS: 1. Sepsis The patient presented to the hospital with sepsis due to possible UTI versus evolving right lower lobe pneumonia with acute sepsis related organ dysfunction as evidenced by lactic acidemia. Given that the patient was just recently hospitalized for 1 week, we will plan to broaden antimicrobials. Recommend follow-up lactate level. Agree with supplemental IV fluid hydration as ordered. If the patient remains persistently hypotensive following fluid resuscitation, vasopressor support will be initiated. Add on urine culture to current orders. 2. Acute kidney injury Most likely prerenal in etiology in the setting #1. Continue volume resuscitation as noted above. Continue to monitor urine output for now. There is no current indication for renal replacement therapy. 3. History of alcohol dependency/medical noncompliance/hypertension/diabetes mellitus/coronary artery disease/valvular heart disease/anemia Complicates care, management, recovery and prognosis. Continue supportive care as noted above. Continue symptomatic management of any alcohol withdrawal symptoms. This note was generated with [employer] dictation software. It may contain incorrect words, spelling, and punctuation that were not noted in checking the note before signing. HPI Consult Data Date of Consult: 05/11/23 HPI Narrative Reason for Consultation: Sepsis HPI Narrative: The patient is a 62-year-old male, with a history as outlined below, who presented to the emergency department via EMS on May 08 with abdominal pain. The patient was just discharged from the hospital on April 26 after having been admitted for a week due to acute alcohol withdrawal. It was recommended that the patient be discharged to a skilled nurse facility. However, the patient refused and opted to be discharged to his father's house. He has continued to drink alcohol since that time. The patient's medical history is also significant for coronary artery disease, history of aortic valve replacement, sick sinus syndrome status post pacemaker, chronic alcoholic pancreatitis and protein calorie malnutrition. On presentation to the emergency department, the patient was initially documented to be afebrile and hemodynamically stable. He was, nevertheless, notably tachycardic. Initial laboratory evaluation revealed a white blood cell count of 13,000. Chemistry profile was notable for a bicarbonate of 36 and creatinine of 1.5. AST was increased to 220. Lipase was normal. Urine analys is was positive for leukocyte Estrace and 1+ urine bacteria. Toxicology screen was positive for opiates and barbiturates. CT abdomen/pelvis demonstrated fatty hepatic changes with moderate ascites and possible mild small bowel ileus. Chest x-ray demonstrated a possible right lower lobe infiltrate. The patient was initially placed on antibiotics and admitted to the medical surgical floor over concerns for acute cystitis. On the morning of May 09, the patient was transferred to the medical intensive care unit secondary to fluid refractory hypotension. The patient continues to report suprapubic abdominal discomfort. [facility] Medical History AAA (abdominal aortic aneurysm) Abdominal ascites Admitted to alcohol detoxification center Adrenal nodule Alcohol abuse Alcohol dependence Alcohol dependence Alcoholic hepatitis Alcoholism Anxiety Ascending aortic dissection (~2005) Cardiac pacemaker in situ (~06/2016) Chronic pancreatitis Diabetes Diabetes mellitus, type II Essential hypertension Gastric wall thickening Hiatal hernia History of diabetes mellitus HTN (hypertension) Hx of hypercholesterolemia Left carotid bruit Myocardial infarct Non-sustained ventricular tachycardia Pacemaker Pacemaker Pancreatitis Pure hypercholesterolemia Right bundle branch block (RBBB) Seizures Sick sinus syndrome Smoker Substance abuse SVT (supraventricular tachycardia) Thoracic aortic aneurysm Tobacco use Home Medications omeprazole 40 mg capsule,delayed release 40 mg PO DAILY ACID REFLUX 06/10/18 [History Last Taken 04/19/23] amlodipine 5 mg tablet 5 mg PO DAILY BLOOD PRESSURE 10/17/20 [History Last Taken 04/19/23] atorvastatin 10 mg tablet 10 mg PO DAILY CHOLESTEROL 10/17/20 [History Last Taken 04/19/23] hydralazine 25 mg tablet 25 mg PO TID BP 10/17/20 [History Last Taken 04/19/23] hydrochlorothiazide 12.5 mg tablet 12.5 mg PO DAILY BLOOD PRESSURE 10/17/20 [History Last Taken 11/11/21] ramipril 10 mg capsule 10 mg PO BID BLOOD PRESSURE 10/17/20 [History Last Taken 11/11/21] dapagliflozin propanediol 10 mg tablet (Farxiga) 10 mg PO DAILY DIABETES 09/30/21 [History Last Taken 04/19/23] multivitamin 1 tab PO DAILY SUPPLEMENT 11/11/21 [History Last Taken 11/10/21] potassium chloride 10 mEq tablet,extended release(part/cryst) 20 meq PO DAILY SUPPLEMENT 10/04/22 [History Last Taken Unknown] metoprolol succinate 50 mg tablet,extended release 24 hr 50 mg PO BID BLOOD PRESSURE #60 tabs 10/15/22 [Rx Last Taken 04/19/23] gabapentin 300 mg capsule 300 mg PO DAILY NEUROPATHY 11/14/22 [History Last Taken Unknown] insulin glargine 100 unit/mL (3 mL) subcutaneous pen (Lantus Solostar U-100 Insu lamar) 10 unit subcut 1200 DIABETES 11/14/22 [History Last Taken 04/19/23] metformin 500 mg tablet,extended release 24 hr 500 mg PO BID DIABETES 11/15/22 [History Last Taken 04/19/23] famotidine 40 mg tablet 40 mg PO DAILY ACID REFLUX 04/20/23 [History Last Taken 04/19/23] Allergy/AdvReac Type Severity Reaction Status Date / Time No Known Allergies Allergy Verified 05/09/23 13:37 Family History Father CAD (coronary artery disease) Mother Dementia Surgical History H/O aortic valve replacement H/O cardiac catheterization History of aortic aneurysm repair (~2017) History of aortic valve replacement with bioprosthetic valve (~2016) History of cataract surgery History of hernia repair Social History (Updated 05/09/23 @ 13:38 by Myra Nova) household members: family housing: house Smoking Status: Current every day smoker tobacco type: cigarettes alcohol intake: current alcohol intake frequency: 0-2 drinks per day details: Reports currently ~ 2 tall boys daily. substance use type: former substance user caffeine: Yes Type: coffee Number of servings: 3 ROS ROS Narrative 10 systems were reviewed with pertinent positives as noted in the HPI above. Physical Exam Const alert and no apparent distress Constitutional Narrative: Appears to be resting comfortably in bed. General Appearance: cooperative HEENT normocephalic and head/scalp atraumatic Eyes PERRL, EOMs intact bilaterally and conjunctivae normal Neck supple General: trachea midline Chest inspection of chest normal Resp normal respiratory effort Auscultation: diminished lung sounds; Negative for rales, rhonchi or wheezes Cardio regular rate and regular rhythm Heart Sounds: murmur GI soft to palpation Palpation: tender Extremity no clubbing, cyanosis or edema Skin no rashes or lesions noted Neuro CN's II-XII intact bilaterally, moves all extremities and no focal motor deficits Psych cooperative and affect normal Lab / Micro Data 05/11/23 05:35 05/11/23 05:35 Labs: Laboratory Results - last 24 hr 05/09/23 13:59: WBC 13.0 H, RBC 3.25 L, Hgb 11.2 L, Hct 33.8 L, MCV 104.0 H, MCH 34.5 H, MCHC 33.1, RDW Std Deviation 59.7 H, RDW Coeff of Kalpana 15.7 H, Plt Count 133 L, MPV 12.3 H, Immature Gran % (Auto) 0.800, Neut % (Auto) 92.8 H, Lymph % (Auto) 2.7 L, [place] % (Auto) 3.2, Eos % (Auto) 0.0, Baso % (Auto) 0.5, Absolute Neuts (auto) 12.0 H, Absolute Lymphs (auto) 0.35 L, Nucleated RBC % 0, Platelet Estimate ADEQUATE, Macrocytosis 1+, Sodium 137, Potassium 4.0, Chloride 92 L, Carbon Dioxide 36.0 H, Anion Gap 9, BUN 9, Creatinine 1.50 H, Estim Creat Clear Calc 55.78, Est GFR (MDRD) Af Amer 61, Est GFR (MDRD) Non-Af 51 L, BUN/Creatinin e Ratio 6.0 L, Glucose 209 H, Calcium 8.0 L, Total Bilirubin 1.00, Direct Bilirubin 0.48 H, AST 220 H, ALT 56, Alkaline Phosphatase 212 H, Total Protein 5.4 L, Albumin 1.5 L, Globulin 3.9, Prealbumin 8.0 L, Lipase < 10 L 05/09/23 14:15: PT 22.6 H, INR 2.0 05/09/23 16:59: Urine Color Yellow, Urine Clarity Sl. Cloudy, Urine pH 8.0, Ur Specific [place] 1.015, Urine Protein 100 H, Urine Glucose (UA) Normal, Urine Ketones Negative, Urine Occult Blood 250 H, Urine Nitrite Negative, Urine Bilirubin Negative, Urine Urobilinogen Normal, Ur Leukocyte Esterase 500 H, Urine RBC 0-5 SEEN, Urine WBC 50-100 SEEN, Ur Squamous Epith Cells 0 SEEN, Urine Bacteria 1+, Urine Mucus 0 SEEN, Urine Opiates Screen POSITIVE H, Urine Metha done Screen NEGATIVE, Ur Barbiturates Screen POSITIVE H, Ur Phencyclidine Scrn NEGATIVE, Ur Amphetamines Screen NEGATIVE, MDMA (Ecstasy) Screen NEGATIVE, U Benzodiazepines Scrn NEGATIVE, Urine Cocaine Screen NEGATIVE, U Cannabinoids Screen NEGATIVE, Ur Drug Screen Comment 05/10/23 07:05: WBC 13.7 H, RBC 2.47 L, Hgb 8.5 L, Hct 26.2 L, MCV 106.1 H, MCH 34.4 H, MCHC 32.4, RDW Std Deviation 63.3 H, RDW Coeff of Kalp[place] 16.2 H, Plt Count 55 L, MPV 13.1 H, Immature Gran % (Auto) 0.700, Neut % (Auto) 94.5 H, Lymph % (Auto) 2.3 L, [place] % (Auto) 2.0, Eos % (Auto) 0.0, Baso % (Auto) 0.5, Absolute Neuts (auto) 12.9 H, Absolute Lymphs (auto) 0.32 L, Nucleated RBC % 0, Platelet Estimate MOD DEC, Sodium 134 L, Potassium 4.1, Chloride 94 L, Carbon Dioxide 33.0 H, Anion Gap 7, BUN 14, Creatinine 1.92 H, Estim Creat Clear Calc 43.58, Est GFR (MDRD) Af Amer 46 L, Est GFR (MDRD) Non-Af 38 L, BUN/Creatinine Ratio 7.3 L, Glucose 181 H, Calcium 7.5 L, Phosphorus 4.7, Magnesium 2.7 H, Total Bilirubin 0.60, AST 86 H, ALT 34, Alkaline Phosphatase 154 H, Total Protein 4.5 L, Albumin 1.7 L, Globulin 2.8, Albumin/Globulin Ratio 0.6 L, TSH 0.89 05/10/23 10:35: Lactic Acid 4.4 H* Imaging Radiology Impression Chest X-Ray 05/09/23 14:36 IMPRESSION: Right lower lung infiltrate/atelectasis and trace right pleural effusion. Mild atelectatic changes in the left lung base. Electronically Signed: Jayesh Ludwig MD at 14:50 EDT , Abdomen/Pelvis CT 05/09/23 15:32 IMPRESSION: Fatty hepatic changes with small hypoattenuated nodule. Moderate ascites. Mild wall thickening of the urinary bladder. Possible mild small bowel ileus. Electronically Signed: Cade Jaramillo DO at 16:54 EDT Reading Location ID and State: [facility] / [place] Tel [phone], Service support , Sepsis Attestation Sepsis Alert: Yes Sepsis Attestation: Agree w/Sepsis Date exam was performed: 05/10/23 Time exam was performed: 12:01 Possible Source of Sepsis: Pulmonary and Genitourinary Sepsis Organ Dysfunction Criteria Present: SBP < 90 mmHg or MAP < 65 mmHg and Lactic Acid > 2 mmol/L Fluid Resuscitation Fluid resuscitation indicated?: Yes Fluid Resuscitation ordered: 30 ml/kg fluid bolus ordered Charges/Coding Visit Charges Inpatient E&M: 24959 Init Hosp L3
[2023-05-10] MEDS: Menthol/Lanolin/Calamine/Znox 113 GM Tube 1 APPLIC TOPICAL ×2 (11:51→22:57)
[2023-05-10] MEDS: Pantoprazole Sodium 40 MG in 0.9% Normal Saline (100mL MB+) 100 ML 330 MG IV ×2 (12:06→22:28)
[2023-05-10] MEDS: Vancomycin HCl 2,000 MG in 0.9% Normal Saline (500mL Bag) 500 ML 250 MG IV (12:56)
[2023-05-10 13:40] LABS: Bedside Glucose 142 mg/dL (74-106)
--- NOTE | 2023-05-10 14:08 | PHA.PHARE_ITS ---
Consult Antibiotic Management Pharmacy has been consulted to manage selected antibiotic: Vancomycin Type of Intervention Type of Consult: New start Suspected Infection Suspected Infection: Sepsis Prior Doses of Antibiotics Prior Doses of Antibiotics Received/Current Regimen: Vancomycin 2000 mg IV x 1 given 05/10/23 @ 1256, patient is also on IV zosyn Q8H Labs Labs: Sodium 134 mmol/L (136-145) L 05/10/23 07:05 Potassium 4.1 mmol/L (3.5-5.1) 05/10/23 07:05 Chloride 94 mmol/L (98-107) L 05/10/23 07:05 Carbon Dioxide 33.0 mmol/L (21.0-32.0) H 05/10/23 07:05 Anion Gap 7 (5-15) 05/10/23 07:05 BUN 14 mg/dL (7-18) 05/10/23 07:05 Creatinine 1.92 mg/dL (0.70-1.30) H 05/10/23 07:05 Est GFR (MDRD) Af Amer 46 mL/min (>60) L 05/10/23 07:05 Est GFR (MDRD) Non-Af 38 mL/min (>60) L 05/10/23 07:05 BUN/Creatinine Ratio 7.3 RATIO (10-20) L 05/10/23 07:05 Glucose 181 mg/dL (74-106) H 05/10/23 07:05 Microbiology Microbiology: Microbiology 05/09/23 21:31 Urine, Clean Catch Legionella Antigen - Final 05/09/23 21:31 Urine, Clean Catch Streptococcus pneumoniae Antigen (M - [place] l Dosing Weight Weight used for dosin kg Estimated Creatinine Clearance Estimated Creatinine Clearance: ~44 Goal Trough Goal Trough: 15-20 mcg/mL Pharmacy Plan for Drug Dosing Pharmacy Plan for Drug Dosing: Vancomycin 1500 mg IV x 1 given 05/10/23 @ 1256, subsequent dosing of 500 mg IV Q12H Pharmacy Service will continue to monitor and adjust dosing as required. Follow-Up Labs Follow-Up Labs: Trough: Vancomycin Date/Time Labs Ordered Labs to be done on [date and time ordered]: 05/12/23 @ 0030
[2023-05-10 14:15] LABS: M R Staph aureus DNA By PCR Negative (Negative); Probe Check PASS; Specimen Processing Control PASS
--- NOTE | 2023-05-10 14:30 | CASEMGMT ---
ELIS KEATING readmission note: Index admission: Admitted 04/19 from home w/abd pain and detox. See BLANKA Sinha, note 04/23. Pt went through ETOH W/D program. Addiction medicine specialists met while @ [facility]. Hx chronic pancreatitis d/t ETOH abuse. Pt had a fall during admission and CT head done. See notes. SNF offered @ d/c, but pt declined. Pt CGA for Tx's @ dc and min A of 1 during ambulation. See Flor MOSCOSO, note 04/25. Pt lives w/his father. Discharged home 04/26 and FWW sent home w/pt @ dc. Current admission: Admitted 05/08 w/acute cystitis, w/out hematuria and impending ETOH W/D. Per H/P, pt has not taken any of his medications since discharge and continues to drink ETOH. ELIS KEATING to room to talk w/pt. PICC being inserted. ELIS KEATING to attempt to talk w/pt at a later time. Plan: TBD. Darleen BOLIVAR RN, CM
[2023-05-10 14:51] LABS: Reflex Lactate? Y
[2023-05-10] MEDS: 0.9% Normal Saline (1000mL) 1,000 ML 50 ML IV (15:00)
[2023-05-10] MEDS: Piperacil/Tazobactam 3.375 GM in 0.9% Normal Saline (50mL MB+) 50 ML IV ×2 (15:22→22:28)
[2023-05-10] MEDS: Lidocaine Jelly 2% 20 ML Syringe (URO-JET) 1 APPLIC TOPICAL (17:14)
[2023-05-10 18:40] LABS: Bedside Glucose 133 mg/dL (74-106)
[2023-05-10] MEDS: Dicyclomine 10 MG Capsule 20 MG PO (22:27)
[2023-05-10] MEDS: traZODone 100 MG Tablet PO (22:44)
[2023-05-11] VITALS (21 sets, daily range): BP systolic 74–131; BP diastolic 57–90; PULSE 70–117; RESP 13–21; TEMP 36–36.6; O2SAT 85–100; BMI 24.9
[2023-05-11 00:26] LABS: Bedside Glucose 147 mg/dL (74-106)
[2023-05-11] MEDS: 0.9% Normal Saline (1000mL) 1,000 ML 50 ML IV ×2 (01:44→21:51)
[2023-05-11] MEDS: Vancomycin IV 500 MG/100 ML BAG 100 MG IV (01:44)
[2023-05-11] MEDS: Phenobarbital 32.4 MG Tablet 64.8 MG PO ×5 (01:45→18:15)
[2023-05-11] MEDS: Piperacil/Tazobactam 3.375 GM in 0.9% Normal Saline (50mL MB+) 50 ML IV ×3 (05:38→21:50)
[2023-05-11] MEDS: 0.9% Saline Lock 10 ML Syringe IV (05:39)
[2023-05-11] MEDS: Nystatin Powder 15gm Bottle 1 APPLIC TOPICAL ×3 (05:40→21:50)
[2023-05-11 05:44] LABS: Absolute Lymphocyte Count 0.34 X10^3/uL (0.83-4.51); Absolute Neutrophil Count 12.5 X10^3/uL (2.0-7.7); Basophil# 0.06 X10^3/uL; Basophil% 0.4 % (0-1); Eosinophil# 0.12 X10^3/uL; Eosinophils% 0.9 % (0-5); Hematocrit 24.6 % (40-54); Lymphocyte # 0.34 X10^3/ul (0.83-4.51); Lymphocyte % 2.4 % (19-41); Mean Corp Hgb Conc 32.5 g/dL (32-36); Mean Corpuscular Hgb 34.5 pg (27.0-32.0); Mean Platelet Vol. 12.2 fl (6.2-12.0); Monocyte# 0.84 X10^3/uL; NRBC Flagged by Analyzer 0 % (0-5); Neutrophil # 12.46 X10^3/uL (2.7-7.7); Neutrophil % 89.8 % (47-70); POSITIVE COUNT YES; POSITIVE DIFFERENTIAL YES; POSITIVE MORPHOLOGY YES; RBC Distribution Width CV 16.1 % (11.6-14.6); RBC Distribution Width SD 62.4 fl (35.1-43.9); Red Blood Count 2.32 M/mm3 (4.6-6.2); White Blood Count 13.9 K/mm3 (4.4-11.0)
[2023-05-11 06:06] LABS: Platelet Count 38 K/mm3 (150-450)
[2023-05-11 06:07] LABS: Differential Indicated SCAN CRITERIA MET
[2023-05-11 06:08] LABS: ALB/GLOB Ratio 0.5 RATIO (0.9-2.4); AST(SGOT) 46 U/L (15-37); Alanine Aminotransfer ALT/SGPT 27 U/L (16-61); Albumin, Serum 1.3 g/dL (3.2-5.0); Alkaline Phosphatase 115 U/L (45-117); Anion Gap 4 (5-15); BUN 22 mg/dL (7-18); BUN/Creat Ratio 9.6 RATIO (10-20); Calcium,Total 7.4 mg/dL (8.5-10.1); Chloride 99 mmol/L (98-107); Creatinine, Serum 2.28 mg/dL (0.70-1.30); EST Glomerular Filtration Rate 31 mL/min (>60); Est Glom Filt Rate - Afr Amer 38 mL/min (>60); Globulin 2.7 g/dL (2.2-4.2); Glucose 175 mg/dL (74-106); Magnesium 2.6 mg/dL (1.6-2.6); Potassium 4.5 mmol/L (3.5-5.1); Sodium Level 137 mmol/L (136-145)
--- NOTE | 2023-05-11 07:20 | PCM.PN.INT ---
Assessment & Plan Assessment/Plan (1) Sepsis: PLAN: Plan RECOMMENDATIONS: 1. Continue empiric antibiotics pending culture results. 2. Continue thiamine, folic acid and phenobarbital taper. 3. Encourage incentive spirometer use and mobilize patient as tolerated. 4. Renal ultrasound IMPRESSIONS: 1. Sepsis The patient presented to the hospital with sepsis due to possible UTI versus evolving right lower lobe pneumonia with acute sepsis related organ dysfunction as evidenced by lactic acidemia. Plan to continue empiric broad-spectrum antimicrobials, pending finalized culture results. The patient did receive supplemental IV fluid hydration. Although blood pressures are still borderline, the patient has never required any vasopressor support. 2. Acute kidney injury Most likely prerenal in etiology in the setting #1. Continue to monitor urine output for now. There is no current indication for renal replacement therapy. 3. History of alcohol dependency/medical noncompliance/hypertension/diabetes mellitus/coronary artery disease/valvular heart disease/anemia Complicates care, management, recovery and prognosis. Continue supportive care as noted above. Continue symptomatic management of any alcohol withdrawal symptoms. This note was generated with [employer] dictation software. It may contain incorrect words, spelling, and punctuation that were not noted in checking the note before signing. Subjective Subjective The patient was seen and examined at the bedside this morning. Events from the last 24 hours have been reviewed. The patient is currently afebrile, hemodynamically stable and maintaining appropriate oxygen saturations on 5 L/min via nasal cannula. The patient never had to be initiated on vasopressor support. He is currently documented to be overall net +6.3 L for the hospitalization. White count remains elevated at 14,000. Hemoglobin was noted to be 8.0 g/dL. Chemistry profile was notable for a creatinine of 2.28. The patient continues to report nonspecific abdominal discomfort. Objective Data Objective Data The patient's most recent lab work, culture data and imaging studies have all been personally reviewed. Blood and urine cultures are pending. Vital Signs: Vital Signs Temp Pulse Resp BP Pulse Ox O2 Del Method O2 Flow Rate 97.6 F L 104 H 16 100/79 97 Nasal Cannula 5 05/11/23 04:00 05/11/23 06:00 05/11/23 06:00 05/11/23 06:00 05/11/23 06:00 05/11/23 06:00 05/11/23 06:00 FiO2 40 05/10/23 12:30 Oxygen Flow Rate (L/min) 5 Oxygen Delivery Method Nasal Cannula Weight: 178 lb 12.718 oz Body Mass Index (BMI) 24.9 Intake & Output: Intake and Output for Last 24 Hours 05/09/23 05/10/23 05/11/23 23:59 23:59 23:59 Intake Total 1760 / 1760 4333.67 / 4333.67 801.67 / 801.67 Output Total 200 / 400 400 / 400 Balance 1760 / 1760 4133.67 / 3933.67 401.67 / 401.67 Lab / Micro Data Attestation: I reviewed the patient's lab results. 05/11/23 05:35 05/11/23 05:35 Labs: Laboratory Results - last 24 hr 05/09/23 16:59: Urine Opiates Screen POSITIVE H, Urine Methadone Screen NEGATIVE, Ur Barbiturates Screen POSITIVE H, Ur Phencyclidine Scrn NEGATIVE, Ur Amphetamines Screen NEGATIVE, MDMA (Ecstasy) Screen NEGATIVE, U Benzodiazepines Scrn NEGATIVE, Urine Cocaine Screen NEGATIVE, U Cannabinoids Screen NEGATIVE, Ur Drug Screen Comment 05/10/23 07:05: WBC 13.7 H, RBC 2.47 L, Hgb 8.5 L, Hct 26.2 L, MCV 106.1 H, MCH 34.4 H, MCHC 32.4, RDW Std Deviation 63.3 H, RDW Coeff of Kalpana 16.2 H, Plt Count 55 L, MPV 13.1 H, Immature Gran % (Auto) 0.700, Neut % (Auto) 94.5 H, Lymph % (Auto) 2.3 L, [place] % (Auto) 2.0, Eos % (Auto) 0.0, Baso % (Auto) 0.5, Absolute Neuts (auto) 12.9 H, Absolute Lymphs (auto) 0.32 L, Nucleated RBC % 0, Platelet Estimate MOD DEC, Sodium 134 L, Potassium 4.1, Chloride 94 L, Carbon Dioxide 33.0 H, Anion Gap 7, BUN 14, Creatinine 1.92 H, Estim Creat Clear Calc 43.58, Est GFR (MDRD) Af Amer 46 L, Est GFR (MDRD) Non-Af 38 L, BUN/Creatinine Ratio 7.3 L, Glucose 181 H, Calcium 7.5 L, Phosphorus 4.7, Magnesium 2.7 H, Total Bilirubin 0.60, AST 86 H, ALT 34, Alkaline Phosphatase 154 H, Total Protein 4.5 L, Albumin 1.7 L, Globulin 2.8, Albumin/Globulin Ratio 0.6 L, TSH 0.89 05/10/23 10:35: Lactic Acid 4.4 H* 05/10/23 12:40: MRSA (PCR) Negative 05/10/23 13:18: POC Glucose 142 H 05/10/23 15:20: Lactic Acid 3.0 H* 05/10/23 18:20: POC Glucose 133 H 05/10/23 22:48: POC Glucose 147 H 05/11/23 05:35: WBC 13.9 H, RBC 2.32 L, Hgb 8.0 L, Hct 24.6 L, MCV 106.0 H, MCH 34.5 H, MCHC 32.5, RDW Std Deviation 62.4 H, RDW Coeff of [place] 16.1 H, MPV 12.2 H, Immature Gran % (Auto) 0.500, Neut % (Auto) 89.8 H, Lymph % (Auto) 2.4 L, [place] % (Auto) 6.0, Eos % (Auto) 0.9, Baso % (Auto) 0.4, Absolute Neuts (auto) 12.5 H, Absolute Lymphs (auto) 0.34 L, Nucleated RBC % 0, Sodium 137, Potassium 4.5, Chloride 99, Carbon Dioxide 34.0 H, Anion Gap 4 L, BUN 22 H, Creatinine 2.28 H, Estim Creat Clear Calc 36.70, Est GFR (MDRD) Af Amer 38 L, Est GFR (MDRD) Non-Af 31 L, BUN/Creatinine Ratio 9.6 L, Glucose 175 H, Calcium 7.4 L, Phosphorus 4.0, Magnesium 2.6, Total Bilirubin 0.60, AST 46 H, ALT 27, Alkaline Phosphatase 115, Total Protein 4.0 L, Albumin 1.3 L, Globulin 2.7, Albumin/Globulin Ratio 0.5 L Micro: Microbiology 05/09/23 21:31 Urine, Clean Catch Legionella Antigen - Final 05/09/23 21:31 Urine, Clean Catch Streptococcus pneumoniae Antigen (M - Final Physical Exam Const alert and no apparent distress General Appearance: cooperative HEENT normocephalic and head/scalp atraumatic Eyes PERRL, EOMs intact bilaterally and conjunctivae normal Neck supple General: trachea midline Chest inspection of chest normal Resp normal respiratory effort Auscultation: diminished lung sounds; Negative for rales, rhonchi or wheezes Cardio regular rate and regular rhythm Heart Sounds: murmur GI soft to palpation Palpation: tender Extremity no clubbing, cyanosis or edema Skin no rashes or lesions noted Neuro CN's II-XII intact bilaterally, moves all extremities and no focal motor deficits Psych cooperative and affect normal Charges/Coding Visit Charges Inpatient E&M: 24970 Subs Hosp L2
--- NOTE | 2023-05-11 07:22 | US_ITS ---
STUDY: RENAL ULTRASOUND - COMPLETE REASON FOR EXAM: Male, 62 years old. MLAIK TECHNIQUE: Ultrasound evaluation of the kidneys was performed with real-time and static canseco-scale imaging. COMPARISON: Comparison made with prior CT scan the abdomen and pelvis dated May 09, 2023. FINDINGS: RIGHT KIDNEY: Normal location of the right kidney, which is normal in size. The right kidney measures 12.2 cm x 5.9 cm x 6.8 cm. There is a normal cortex of the right kidney. The renal cortex measures 1.2 cm. There is no right renal mass or cyst. There are no right renal calculi. There is no right hydronephrosis. DISTAL RIGHT URETER: There is non-visualization of the distal right ureter. There is no demonstrated right ureterovesical junction calculus. There is no demonstrated right ureteral jet. LEFT KIDNEY: Normal location of the left kidney, which is normal in size. The left kidney measures 10.5 cm x 4.7 cm x 6.2 cm. There is a normal cortex of the left kidney. The renal cortex measures 1.3 cm. There is no left renal mass or cyst. There are no left renal calculi. There is no left hydronephrosis. DISTAL LEFT URETER: There is non-visualization of the distal left ureter. There is no demonstrated left ureterovesical junction calculus. There is no demonstrated left ureteral jet. BLADDER: A Gillis catheter is seen within the empty bladder. Small amount of fluid is seen in the pelvis. US/Kidney and Bladder IMPRESSION: Normal ultrasound of the kidneys. Small amount of free fluid is seen in the pelvis. Electronically Signed: Carlos Campos MD at 13:20 EDT ,
--- NOTE | 2023-05-11 07:26 | PCM.PN.HOSP ---
Reason for Visit Reason for Visit: Diagnoses Sepsis, unspecified organism (05/09/23) Unspecified severe protein-calorie malnutrition (05/09/23) Alcohol abuse, uncomplicated (05/09/23) Alcohol dependence, uncomplicated (05/09/23) Alcohol use, unspecified with withdrawal, uncomplicated (05/09/23) Alcohol-induced chronic pancreatitis (05/09/23) Acute cystitis without hematuria (05/09/23) Patient's noncompliance with other medical treatment and regimen due to unspecified reason (05/09/23) Subjective Subjective Patient transferred from [facility] to ICU after being diagnosed with severe sepsis. Treatment initiated per protocol with IV fluid antibiotics. Patient did not require pressors. Patient seen this a.m. blood pressure still relatively low with systolic in the 90s. Cultures sent results pending Objective Data Objective Data Vital Signs: Vital Signs Temp Pulse Resp BP Pulse Ox O2 Del Method O2 Flow Rate 97.6 F L 104 H 16 100/79 97 Nasal Cannula 5 05/11/23 04:00 05/11/23 06:00 05/11/23 06:00 05/11/23 06:00 05/11/23 06:00 05/11/23 06:00 05/11/23 06:00 FiO2 40 05/10/23 12:30 Oxygen Flow Rate (L/min) 5 Oxygen Delivery Method Nasal Cannula Weight: 81.1 kg Body Mass Index (BMI) 24.9 Intake & Output: Intake and Output for Last 24 Hours 05/09/23 05/10/23 05/11/23 23:59 23:59 23:59 Intake Total 1760 / 1760 4333.67 / 4333.67 801.67 / 801.67 Output Total 200 / 400 400 / 400 Balance 1760 / 1760 4133.67 / 3933.67 401.67 / 401.67 Lab / Micro Data 05/11/23 05:35 05/11/23 05:35 Labs: Laboratory Results - last 24 hr 05/09/23 16:59: Urine Opiates Screen POSITIVE H, Urine Methadone Screen NEGATIVE, Ur Barbiturates Screen POSITIVE H, Ur Phencyclidine Scrn NEGATIVE, Ur Amphetamines Screen NEGATIVE, MDMA (Ecstasy) Screen NEGATIVE, U Benzodiazepines Scrn NEGATIVE, Urine Cocaine Screen NEGATIVE, U Cannabinoids Screen NEGATIVE, Ur Drug Screen Comment 05/10/23 07:05: WBC 13.7 H, RBC 2.47 L, Hgb 8.5 L, Hct 26.2 L, MCV 106.1 H, MCH 34.4 H, MCHC 32.4, RDW Std Deviation 63.3 H, RDW Coeff of Kalpana 16.2 H, Plt Count 55 L, MPV 13.1 H, Immature Gran % (Auto) 0.700, Neut % (Auto) 94.5 H, Lymph % (Auto) 2.3 L, [place] % (Auto) 2.0, Eos % (Auto) 0.0, Baso % (Auto) 0.5, Absolute Neuts (auto) 12.9 H, Absolute Lymphs (auto) 0.32 L, Nucleated RBC % 0, Platelet Estimate MOD DEC, Sodium 134 L, Potassium 4.1, Chloride 94 L, Carbon Dioxide 33.0 H, Anion Gap 7, BUN 14, Creatinine 1.92 H, Estim Creat Clear Calc 43.58, Est GFR (MDRD) Af Amer 46 L, Est GFR (MDRD) Non-Af 38 L, BUN/Creatinine Ratio 7.3 L, Glucose 181 H, Calcium 7.5 L, Phosphorus 4.7, Magnesium 2.7 H, Total Bilirubin 0.60, AST 86 H, ALT 34, Alkaline Phosphatase 154 H, Total Protein 4.5 L, Albumin 1.7 L, Globulin 2.8, Albumin/Globulin Ratio 0.6 L, TSH 0.89 05/10/23 10:35: Lactic Acid 4.4 H* 05/10/23 12:40: MRSA (PCR) Negative 05/10/23 13:18: POC Glucose 142 H 05/10/23 15:20: Lactic Acid 3.0 H* 05/10/23 18:20: POC Glucose 133 H 05/10/23 22:48: POC Glucose 147 H 05/11/23 05:35: WBC 13.9 H, RBC 2.32 L, Hgb 8.0 L, Hct 24.6 L, MCV 106.0 H, MCH 34.5 H, MCHC 32.5, RDW Std Deviation 62.4 H, RDW Coeff of Kalpana 16.1 H, MPV 12.2 H, Immature Gran % (Auto) 0.500, Neut % (Auto) 89.8 H, Lymph % (Auto) 2.4 L, [place] % (Auto) 6.0, Eos % (Auto) 0.9, Baso % (Auto) 0.4, Absolute Neuts (auto) 12.5 H, Absolute Lymphs (auto) 0.34 L, Nucleated RBC % 0, Sodium 137, Potassium 4.5, Chloride 99, Carbon Dioxide 34.0 H, Anion Gap 4 L, BUN 22 H, Creatinine 2.28 H, Estim Creat Clear Calc 36.70, Est GFR (MDRD) Af Amer 38 L, Est GFR (MDRD) Non-Af 31 L, BUN/Creatinine Ratio 9.6 L, Glucose 175 H, Calcium 7.4 L, Phosphorus 4.0, Magnesium 2.6, Total Bilirubin 0.60, AST 46 H, ALT 27, Alkaline Phosphatase 115, Total Protein 4.0 L, Albumin 1.3 L, Globulin 2.7, Albumin/Globulin Ratio 0.5 L Micro: Microbiology 05/09/23 21:31 Urine, Clean Catch Legionella Antigen - Final 05/09/23 21:31 Urine, Clean Catch Streptococcus pneumoniae Antigen (M - Final Physical Exam Narrative GENERAL: Ill looking HEENT: Atraumatic; normocephalic EYES; Anicteric, Normal Conjunctiva NECK; supple, normal thyroid, RESPIRATORY: Diminished to auscultation CARDIOVASCULAR: Regular S1 S2, GI: soft, normoactive bowel sounds, : No Renal angle tenderness; EXTREMITIES: edema, no clubbing, MUSCULOSKELETAL: no muscle wasting NEURO: Awake; no lateralizing signs. SKIN: No Rash PSYCH; Flat affect Assessment & Plan Assessment/Plan (1) Sepsis: PLAN: Plan Patient is a 62-year-old gentleman with multiple comorbidities admitted with acute alcohol withdrawal. Patient had recently been discharged from the hospital of right SNF placement which he refused. He was also found to be hypotensive with acute cystitis on admission. 1. Sepsis ? Secondary to acute cystitis as evidenced by the presence of an infection, SIRS criteria as well as evidence of endorgan dysfunction with acute kidney injury as well as hypotension. Sepsis protocol initiated ordered lactic acid level blood cultures patient already on Rocephin patient resuscitated with IV fluids per protocol transferred to the intensive care unit in guarded ordered for PICC line. If patient does not respond to fluid resuscitation plan will be to start patient on norepinephrine. Consult placed to cutting machine tender decorative ? 05/11/2023; patient remains in ICU did not require manage blood pressure remains soft 2. Chronic alcohol dependence with acute alcohol withdrawal ? Admitted to regular nursing floor managed with phenobarb taper.? Patient progressed being monitored with CIWA protocol ? 05/11/2023 patient remains on phenobarb taper 3. Acute kidney injury ? Patient started on IV fluids subsequent monitoring of electrolytes ordered 4. Mild hyponatremia ? Secondary to chronic alcohol abuse monitoring 5. Coagulopathy ? Secondary to chronic liver disease from patient chronic alcohol use 6. Acute transaminitis ? Monitoring 7.? Diabetes mellitus type II -Continue patient on his home regimen in addition to Accu-Cheks before meals and at bedtime with sliding scale coverage 8.? Sick sinus syndrome ? Status post pacemaker placement 9.? History of ascending aortic dissection ? Status post repair 10.? Valvular heart disease - history of aortic valve replacement with bioprosthetic material 11.? Hypertension - Blood pressure low on admission antihypertensives held 12. Dyslipidemia -Patient is on statin therapy, continued at home dose 13. GERD ? On famotidine 14. DVT prophylaxis ? SCDs only given that patient coagulopathic critical time spent in the patient's overall evaluation,decision-making process, review of diagnostic data, adjustment of management, discussion with other providers, nursing nursing and ancillary staff involved in patient's care documentation, 52 Minutes Charges/Coding Visit Charges Inpatient E&M: 78925 Subs Hosp L3
[2023-05-11] MEDS: Menthol/Lanolin/Calamine/Znox 113 GM Tube 1 APPLIC TOPICAL ×2 (09:39→21:50)
[2023-05-11] MEDS: Lactobacillis Acidophilus 2 CAP PO (09:39)
[2023-05-11] MEDS: Insulin Lispro 100 UNIT/ML INSULN.PEN SC ×3 (09:45→17:20)
[2023-05-11] MEDS: Potassium Chloride Oral Tablet 20 MEQ PO (09:45)
[2023-05-11] MEDS: Folic Acid 1 MG Tablet PO (09:45)
[2023-05-11] MEDS: Gabapentin 300 MG Capsule PO (09:45)
[2023-05-11] MEDS: Pantoprazole Sodium 40 MG in 0.9% Normal Saline (100mL MB+) 100 ML 330 MG IV ×2 (09:46→21:50)
[2023-05-11 09:52] LABS: Bedside Glucose 154 mg/dL (74-106)
--- NOTE | 2023-05-11 10:30 | CASEMGMT ---
ELIS KEATING Note: ELIS KEATING to room. Introduced self and role. Pt sitting up in bed, eating his breakfast. Pt willing to talk w/juanita KEATING and answered most questions, although is forgetful and at times some answers not consistent. Pt verifies he lives w/his father. Asked pt how he has been doing since being discharged from the hospital. He stated, Not very good. He stated he has not been taking any of his medications since being back home. ELIS KEATING inquired if there was a reason and he stated, I just decided not to take them. It was just my decision to not take them. He then stated I probably better start taking them now. ELIS KEATING inquired if he has the medications at home that he is supposed to be taking. He states, I have a lot of medicines and I'm pretty sure I have what I'm supposed to be taking, but it would help if I got them from the same place. He then stated he gets his medicine from [facility]. ELIS KEATING stated to pt that [facility] does not have a pharmacy and that he would not be able to get prescription medicine from them. He then stated, Did I say [facility]? I meant [facility] He then stated, I get them from [facility] and [facility], that's all. Discussed pt's last admission and discharge planning. Pt states he does not recall falling during his last admission to [facility] and hitting his head. He also states he does not recall having a conversation about going to a SNF. He was made aware therapy evals are pending. He states if SNF is recommended that he would be agreeble, stating, I think that would be best. ELIS KEATING inquired, if therapy feels he would be safe to return home if he would be agreeable to [facility] and he states he would also be agreeable to [facility], but then stated, Not right now. Maybe tomorrow. I'd probably need some help then. PLAN: TBD. Therapy evals pending. SW/ZURI to follow re: further discharge planning. Darleen BOLIVAR RN, CM
[2023-05-11] MEDS: Thiamine Hydrochloride 100 MG Tablet PO (12:44)
[2023-05-11] MEDS: Multivitamins,Therapeutic Tablet 1 TABLET PO (12:44)
[2023-05-11 13:04] LABS: Pathologist Review Reviewed
[2023-05-11 13:07] LABS: Bedside Glucose 151 mg/dL (74-106)
[2023-05-11 17:42] LABS: Bedside Glucose 161 mg/dL (74-106)
[2023-05-11] MEDS: 0.9% Normal Saline (250mL Bag) 250 ML 15 ML IV (21:51)
[2023-05-11] MEDS: Metoprolol(XL)Succ 25 MG Tablet PO (21:52)
[2023-05-11 22:13] LABS: Bedside Glucose 132 mg/dL (74-106)
[2023-05-12] VITALS (20 sets, daily range): BP systolic 86–135; BP diastolic 62–101; PULSE 59–108; RESP 14–22; TEMP 36–36.9; O2SAT 93–100; BMI 25.7
--- NOTE | 2023-05-12 01:56 | PCM.HOSP.N ---
Hospitalist Note Patient lethargic, possibly component his medication, held. BELKIS history not on CPAP. Will add routine but for now will obtain ABG and place on BIPAP. Will also obtain NH.
[2023-05-12 02:22] LABS: Allen Test Positive; Base Excess 6 mmol/L (-2 to +2); Bicarbonate 30.7 mmol/L (22-26); Blood Gas Specimen Type ART; Comment 16/8 14 30%; Mode NIV; O2 Delivery Device BiPAP; PO2 112 mmHG (75-100); SITE R Radial; SO2 98 % (95-99); Total Carbon Dioxide 32 mmol/L; pCO2 47.3 mmHg (35-45); pH 7.42 (7.35-7.45)
[2023-05-12 04:24] LABS: Absolute Lymphocyte Count 0.57 X10^3/uL (0.83-4.51); Absolute Neutrophil Count 8.9 X10^3/uL (2.0-7.7); Basophil# 0.03 X10^3/uL; Basophil% 0.3 % (0-1); Eosinophils% 1.9 % (0-5); Hematocrit 23.4 % (40-54); Hemoglobin 7.4 g/dL (13.0-16.5); Lymphocyte # 0.57 X10^3/ul (0.83-4.51); Lymphocyte % 5.3 % (19-41); Mean Corp Hgb Conc 31.6 g/dL (32-36); Mean Corpuscular Hgb 33.8 pg (27.0-32.0); Mean Corpuscular Volume 106.8 fL (80-94); Mean Platelet Vol. 13.1 fl (6.2-12.0); Monocyte# 0.89 X10^3/uL; Monocyte% 8.3 % (0-10); NRBC Flagged by Analyzer 0 % (0-5); Neutrophil # 8.85 X10^3/uL (2.7-7.7); Neutrophil % 82.9 % (47-70); POSITIVE COUNT YES; POSITIVE DIFFERENTIAL YES; POSITIVE MORPHOLOGY YES; RBC Distribution Width CV 15.7 % (11.6-14.6); RBC Distribution Width SD 61.6 fl (35.1-43.9); Red Blood Count 2.19 M/mm3 (4.6-6.2); White Blood Count 10.7 K/mm3 (4.4-11.0)
[2023-05-12 04:27] LABS: Differential Indicated SCAN CRITERIA MET; Platelet Count 29 K/mm3 (150-450)
[2023-05-12 04:46] LABS: ALB/GLOB Ratio 0.4 RATIO (0.9-2.4); AST(SGOT) 48 U/L (15-37); Alanine Aminotransfer ALT/SGPT 23 U/L (16-61); Albumin, Serum 1.1 g/dL (3.2-5.0); Alkaline Phosphatase 103 U/L (45-117); Anion Gap 1 (5-15); BUN 27 mg/dL (7-18); BUN/Creat Ratio 10.3 RATIO (10-20); Calcium,Total 7.4 mg/dL (8.5-10.1); Chloride 102 mmol/L (98-107); Creatinine, Serum 2.61 mg/dL (0.70-1.30); EST Glomerular Filtration Rate 27 mL/min (>60); Est Glom Filt Rate - Afr Amer 32 mL/min (>60); Estimated Creatinine Clearance 32.06 ml/min; Globulin 2.6 g/dL (2.2-4.2); Glucose 93 mg/dL (74-106); Potassium 4.1 mmol/L (3.5-5.1); Protein, Total 3.7 g/dL (6.4-8.2); Sodium Level 138 mmol/L (136-145)
[2023-05-12 05:18] LABS: Differential Comment SCANNED
[2023-05-12 05:19] LABS: Platelet Estimate MKD DEC (ADEQ)
[2023-05-12] MEDS: Nystatin Powder 15gm Bottle 1 APPLIC TOPICAL ×3 (05:25→21:14)
[2023-05-12] MEDS: Piperacil/Tazobactam 3.375 GM in 0.9% Normal Saline (50mL MB+) 50 ML IV ×3 (05:26→21:14)
--- NOTE | 2023-05-12 06:46 | PN.CC_ITS ---
Assessment & Plan Assessment/Plan (1) Sepsis: PLAN: Plan RECOMMENDATIONS: 1. Continue empiric antibiotics pending culture results. 2. Continue thiamine and folic acid. 3. Consider discontinuation of phenobarbital taper and initiation of as needed Ativan. 4. Encourage incentive spirometer use and mobilize patient as tolerated. 5. Send type and screen. Transfuse if hemoglobin drops below 7 g/dL. Continue PPI therapy. IMPRESSIONS: 1. Sepsis The patient presented to the hospital with sepsis due to possible UTI versus evolving right lower lobe pneumonia with acute sepsis related organ dysfunction as evidenced by lactic acidemia. Plan to continue empiric broad-spectrum antimicrobials, pending finalized culture results. The patient did receive supplemental IV fluid hydration. Although blood pressures are still borderline, the patient has never required any vasopressor support. 2. Acute kidney injury Most likely prerenal in etiology in the setting #1. Continue to monitor urine output for now. There is no current indication for renal replacement therapy. Renal ultrasound was unremarkable. If renal function continues to worsen, consider nephrology consultation. 3. History of alcohol dependency/medical noncompliance/hypertension/diabetes mellitus/coronary artery disease/valvular heart disease/anemia Complicates care, management, recovery and prognosis. Continue supportive care as noted above. Continue symptomatic management of any alcohol withdrawal symptoms. Recommend continuing to monitor H&H daily. Transfuse if hemoglobin drops below 7 g/dL. Send type and screen today along with stool for occult blood. If positive, consider gastroenterology consultation. This note was generated with [employer] dictation software. It may contain incorrect words, spelling, and punctuation that were not noted in checking the note before signing. Subjective Subjective The patient was seen and examined at the bedside this morning. Events from the last 24 hours have been reviewed. The patient is currently afebrile, hemodynamically stable and maintaining appropriate oxygen saturations on room air. According to nursing report, the patient became more lethargic overnight, which was presumed to be secondary to the phenobarbital that the patient was receiving. That medication has since been placed on hold. Hemoglobin this morning was noted to be 7.4 g/dL with a platelet count of 29,000. Creatinine is elevated at 2.61. Objective Data Objective Data The patient's most recent lab work, culture data and imaging studies have all been personally reviewed. Blood and urine cultures are pending. Vital Signs: Vital Signs Temp Pulse Resp BP Pulse Ox O2 Del Method O2 Flow Rate 97.6 F L 97 22 H 88/66 L 99 Room Air 8 05/12/23 05:29 05/12/23 05:29 05/12/23 05:29 05/12/23 05:29 05/12/23 05:29 05/12/23 05:29 05/12/23 02:00 FiO2 40 05/12/23 04:15 Oxygen Flow Rate (L/min) 8 Oxygen Delivery Method Room Air Weight: 184 lb 11.958 oz Body Mass Index (BMI) 25.7 Intake & Output: Intake and Output for Last 24 Hours 05/10/23 05/11/23 05/12/23 23:59 23:59 23:59 Intake Total 4333.67 / 4333.67 2211.25 / 2211.25 50 / 50 Output Total 200 / 400 650 / 850 400 / 400 Balance 4133.67 / 3933.67 1561.25 / 1361.25 -350 / -350 Lab / Micro Data Attestation: I reviewed the patient's lab results. 05/12/23 04:10 05/12/23 04:10 Labs: Laboratory Results - last 24 hr 05/11/23 05:35: Plt Count 38 L*, Diff Path Review Reviewed 05/11/23 09:33: POC Glucose 154 H 05/11/23 12:42: POC Glucose 151 H 05/11/23 17:19: POC Glucose 161 H 05/11/23 21:48: POC Glucose 132 H 05/12/23 02:30: Ammonia 27.0 05/12/23 04:10: WBC 10.7, RBC 2.19 L, Hgb 7.4 L, Hct 23.4 L, MCV 106.8 H, MCH 33.8 H, MCHC 31.6 L, RDW Std Deviation 61.6 H, RDW Coeff of Kalpana 15.7 H, Plt Count 29 L*, MPV 13.1 H, Immature Gran % (Auto) 1.300 H, Neut % (Auto) 82.9 H, Lymph % (Auto) 5.3 L, [place] % (Auto) 8.3, Eos % (Auto) 1.9, Baso % (Auto) 0.3, Absolute Neuts (auto) 8.9 H, Absolute Lymphs (auto) 0.57 L, Nucleated RBC % 0, Differential Comment SCANNED, Platelet Estimate MKD DEC, Sodium 138, Potassium 4.1, Chloride 102, Carbon Dioxide 35.0 H, Anion Gap 1 L, BUN 27 H, Creatinine 2.61 H, Estim Creat Clear Calc 32.06, Est GFR (MDRD) Af Amer 32 L, Est GFR (MDRD) Non-Af 27 L, BUN/Creatinine Ratio 10.3, Glucose 93, Calcium 7.4 L, Total Bilirubin 0.60, AST 48 H, ALT 23, Alkaline Phosphatase 103, Total Protein 3.7 L, Albumin 1.1 L, Globulin 2.6, Albumin/Globulin Ratio 0.4 L Micro: Microbiology 05/10/23 17:30 Urine Catheter - Catheter Urine Culture - Preliminary Gram negative megan Gram negative megan#2 05/09/23 21:31 Urine, Clean Catch Legionella Antigen - Final 05/09/23 21:31 Urine, Clean Catch Streptococcus pneumoniae Antigen (M - Final ABG Data ABG results: ABG 05/12/23 02:17 Specimen Type ART Sample Site R Radial pH 7.42 Bicarbonate Actual 30.7 H Total CO2 32 Base Excess 6 H O2 Saturation 98 O2 % 30.0 ABG pCO2 47.3 H ABG pO2 112 H Cipriano Test Positive O2 Delivery Device BiPAP Vent Mode NIV Clinical Comments 23/09 14 30% Radiography Diagnostic Testing: Radiology Impression Renal Ultrasound 05/11/23 07:22 IMPRESSION: Normal ultrasound of the kidneys. Small amount of free fluid is seen in the pelvis. Electronically Signed: Carlos Campos MD at 13:20 EDT , Physical Exam Const alert and no apparent distress Constitutional Narrative: Confused and disoriented. HEENT normocephalic and head/scalp atraumatic Eyes PERRL, EOMs intact bilaterally and conjunctivae normal Neck supple General: trachea midline Chest inspection of chest normal Resp normal respiratory effort Auscultation: diminished lung sounds; Negative for rales, rhonchi or wheezes Cardio regular rate and regular rhythm Heart Sounds: murmur GI soft to palpation and non-tender Extremity no clubbing, cyanosis or edema Skin no rashes or lesions noted Neuro CN's II-XII intact bilaterally, moves all extremities and no focal motor deficits Psych Mood & Affect: flat affect Charges/Coding Visit Charges Inpatient E&M: 25741 Subs Hosp L2
--- NOTE | 2023-05-12 07:17 | PCM.PN.HOSP ---
Reason for Visit Reason for Visit: Diagnoses Sepsis, unspecified organism (05/09/23) Unspecified severe protein-calorie malnutrition (05/09/23) Alcohol abuse, uncomplicated (05/09/23) Alcohol dependence, uncomplicated (05/09/23) Alcohol use, unspecified with withdrawal, uncomplicated (05/09/23) Alcohol-induced chronic pancreatitis (05/09/23) Acute cystitis without hematuria (05/09/23) Patient's noncompliance with other medical treatment and regimen due to unspecified reason (05/09/23) Subjective Subjective Patient seen significant drop in his platelet count, From 133 on admission to 29. Hemoglobin did drop from 11.2-7.4. Did undertake iron studies as well as B12 and folic acid level Objective Data Objective Data Vital Signs: Vital Signs Temp Pulse Resp BP Pulse Ox O2 Del Method O2 Flow Rate 97.6 F L 97 22 H 88/66 L 99 Room Air 8 05/12/23 05:29 05/12/23 05:05/12/23 05:05/12/23 05:29 05/12/23 05:05/12/23 05:05/12/23 02:00 FiO2 40 05/12/23 04:15 Oxygen Flow Rate (L/min) 8 Oxygen Delivery Method Room Air Weight: 83.8 kg Body Mass Index (BMI) 25.7 Intake & Output: Intake and Output for Last 24 Hours 05/10/23 05/11/23 05/12/23 23:59 23:59 23:59 Intake Total 4333.67 / 4333.67 2211.25 / 2211.25 50 / 50 Output Total 200 / 400 650 / 850 400 / 400 Balance 4133.67 / 3933.67 1561.25 / 1361.25 -350 / -350 Lab / Micro Data 05/12/23 04:10 05/12/23 04:10 Labs: Laboratory Results - last 24 hr 05/11/23 05:35: Plt Count 38 L*, Diff Path Review Reviewed 05/11/23 09:33: POC Glucose 154 H 05/11/23 12:42: POC Glucose 151 H 05/11/23 17:19: POC Glucose 161 H 05/11/23 21:48: POC Glucose 132 H 05/12/23 02:30: Ammonia 27.0 05/12/23 04:10: WBC 10.7, RBC 2.19 L, Hgb 7.4 L, Hct 23.4 L, MCV 106.8 H, MCH 33.8 H, MCHC 31.6 L, RDW Std Deviation 61.6 H, RDW Coeff of Kalpana 15.7 H, Plt Count 29 L*, MPV 13.1 H, Immature Gran % (Auto) 1.300 H, Neut % (Auto) 82.9 H, Lymph % (Auto) 5.3 L, [place] % (Auto) 8.3, Eos % (Auto) 1.9, Baso % (Auto) 0.3, Absolute Neuts (auto) 8.9 H, Absolute Lymphs (auto) 0.57 L, Nucleated RBC % 0, Differential Comment SCANNED, Platelet Estimate MKD DEC, Sodium 138, Potassium 4.1, Chloride 102, Carbon Dioxide 35.0 H, Anion Gap 1 L, BUN 27 H, Creatinine 2.61 H, Estim Creat Clear Calc 32.06, Est GFR (MDRD) Af Amer 32 L, Est GFR (MDRD) Non-Af 27 L, BUN/Creatinine Ratio 10.3, Glucose 93, Calcium 7.4 L, Total Bilirubin 0.60, AST 48 H, ALT 23, Alkaline Phosphatase 103, Total Protein 3.7 L, Albumin 1.1 L, Globulin 2.6, Albumin/Globulin Ratio 0.4 L Micro: Microbiology 05/10/23 17:30 Urine Catheter - Catheter Urine Culture - Preliminary Gram negative megan Gram negative megan#2 05/09/23 21:31 Urine, Clean Catch Legionella Antigen - Final 05/09/23 21:31 Urine, Clean Catch Streptococcus pneumoniae Antigen (M - Final ABG Data ABG results: ABG 05/12/23 02:17 Specimen Type ART Sample Site R Radial pH 7.42 Bicarbonate Actual 30.7 H Total CO2 32 Base Excess 6 H O2 Saturation 98 O2 % 30.0 ABG pCO2 47.3 H ABG pO2 112 H Cipriano Test Positive O2 Delivery Device BiPAP Vent Mode NIV Clinical Comments 23/09 14 30% Radiography Diagnostic Testing: Radiology Impression Renal Ultrasound 05/11/23 07:22 IMPRESSION: Normal ultrasound of the kidneys. Small amount of free fluid is seen in the pelvis. Electronically Signed: Carlos Campos MD at 13:20 EDT , Physical Exam Narrative GENERAL: Ill looking HEENT: Atraumatic; normocephalic EYES; Anicteric, Normal Conjunctiva NECK; supple, normal thyroid, RESPIRATORY: Diminished to auscultation CARDIOVASCULAR: Regular S1 S2, GI: soft, normoactive bowel sounds, : No Renal angle tenderness; EXTREMITIES: edema, no clubbing, MUSCULOSKELETAL: no muscle wasting NEURO: Awake; no lateralizing signs. SKIN: No Rash PSYCH; Flat affect Assessment & Plan Assessment/Plan (1) Sepsis: PLAN: Plan Patient is a 62-year-old gentleman with multiple comorbidities admitted with acute alcohol withdrawal. Patient had recently been discharged from the hospital of right SNF placement which he refused. He was also found to be hypotensive with acute cystitis on admission. 1. Sepsis ? Secondary to acute cystitis as evidenced by the presence of an infection, SIRS criteria as well as evidence of endorgan dysfunction with acute kidney injury as well as hypotension. Sepsis protocol initiated ordered lactic acid level blood cultures patient already on Rocephin patient resuscitated with IV fluids per protocol transferred to the intensive care unit in guarded ordered for PICC line. If patient does not respond to fluid resuscitation plan will be to start patient on norepinephrine. Consult placed to clinical specialist ? 05/11/2023; patient remains in ICU did not require manage blood pressure remains soft 2. Chronic alcohol dependence with acute alcohol withdrawal ? Admitted to regular nursing floor managed with phenobarb taper.? Patient progressed being monitored with CIWA protocol ? 05/11/2023 patient remains on phenobarb taper 3. Acute kidney injury ? Patient started on IV fluids subsequent monitoring of electrolytes ordered ? 05/12/2023; patient kidney function continues to worsen will continue with IV fluids. Patient was on vancomycin and Zosyn vancomycin discontinued given worsening kidney 4. Mild hyponatremia ? Secondary to chronic alcohol abuse monitoring 5. Coagulopathy ? Secondary to chronic liver disease from patient chronic alcohol use 6. Acute transaminitis ? Monitoring 7.? Diabetes mellitus type II -Continue patient on his home regimen in addition to Accu-Cheks before meals and at bedtime with sliding scale coverage 8.? Sick sinus syndrome ? Status post pacemaker placement 9.? History of ascending aortic dissection ? Status post repair 10.? Valvular heart disease - history of aortic valve replacement with bioprosthetic material 11.? Hypertension - Blood pressure low on admission antihypertensives held 12. Dyslipidemia -Patient is on statin therapy, continued at home dose 13. GERD ? On famotidine 14. Thrombocytopenia ? Patient has had a precipitous drop in his platelet count. No bleeding at this point we will continue to monitor 15. Anemia ? Suspected to be secondary to anemia of chronic disorder monitoring H&H with plans to transfuse if patient becomes symptomatic or hemoglobin falls below 7 16. DVT prophylaxis ? SCDs only given that patient coagulopathic Time spent in the patient's overall evaluation,decision-making process, review of diagnostic data, adjustment of management, discussion with other providers, nursing nursing and ancillary staff involved in patient's care documentation, 52 Minutes Charges/Coding Visit Charges Inpatient E&M: 29059 [facility] Hosp L3
[2023-05-12 08:36] LABS: Platelet Count 36 K/mm3 (150-450); RET-HE 31.7 pg (30-35); Reticulocyte Count 1.44 % (0.5-1.5)
[2023-05-12] MEDS: Gabapentin 300 MG Capsule PO (08:59)
[2023-05-12] MEDS: Folic Acid 1 MG Tablet PO (09:00)
[2023-05-12] MEDS: Metoprolol(XL)Succ 25 MG Tablet PO ×2 (09:00→21:14)
[2023-05-12] MEDS: Multivitamins,Therapeutic Tablet 1 TABLET PO (09:00)
[2023-05-12] MEDS: Thiamine Hydrochloride 100 MG Tablet PO (09:00)
[2023-05-12] MEDS: Potassium Chloride Oral Tablet 20 MEQ PO (09:00)
[2023-05-12] MEDS: Lactobacillis Acidophilus 2 CAP PO ×2 (09:01→21:10)
[2023-05-12 09:02] LABS: Bedside Glucose 89 mg/dL (74-106)
[2023-05-12 09:02] LABS: Iron 46 ug/dL (65-175); Iron Binding Capacity,Total 46 ug/dL (250-450)
[2023-05-12 09:08] LABS: Vitamin B12 > 2000 pg/mL (211-911)
[2023-05-12] MEDS: Pantoprazole Sodium 40 MG in 0.9% Normal Saline (100mL MB+) 100 ML 330 MG IV ×2 (11:10→21:03)
[2023-05-12] MEDS: Phenobarbital 32.4 MG Tablet 64.8 MG PO (11:10)
[2023-05-12] MEDS: Menthol/Lanolin/Calamine/Znox 113 GM Tube 1 APPLIC TOPICAL ×2 (11:11→21:10)
[2023-05-12 12:12] LABS: Bedside Glucose 147 mg/dL (74-106)
[2023-05-12 16:50] LABS: Bedside Glucose 179 mg/dL (74-106)
[2023-05-12] MEDS: Insulin Lispro 100 UNIT/ML INSULN.PEN SC ×2 (18:26→21:13)
[2023-05-12] MEDS: 0.9% Normal Saline (1000mL) 1,000 ML 50 ML IV (21:08)
[2023-05-12 21:55] LABS: Bedside Glucose 197 mg/dL (74-106)
[2023-05-13] VITALS (16 sets, daily range): BP systolic 96–140; BP diastolic 70–101; PULSE 60–82; RESP 14–18; TEMP 36.1–36.6; O2SAT 96–100; BMI 26.4
[2023-05-13 04:37] LABS: Absolute Neutrophil Count 7.6 X10^3/uL (2.0-7.7); Basophil# 0.06 X10^3/uL; Basophil% 0.6 % (0-1); Eosinophil# 0.19 X10^3/uL; Hemoglobin 8.4 g/dL (13.0-16.5); Lymphocyte % 7.4 % (19-41); Mean Corp Hgb Conc 32.3 g/dL (32-36); Mean Corpuscular Hgb 33.9 pg (27.0-32.0); Mean Corpuscular Volume 104.8 fL (80-94); Mean Platelet Vol. 12.4 fl (6.2-12.0); Monocyte# 0.91 X10^3/uL; Monocyte% 9.6 % (0-10); NRBC Flagged by Analyzer 0 % (0-5); Neutrophil # 7.55 X10^3/uL (2.7-7.7); Neutrophil % 79.2 % (47-70); POSITIVE COUNT YES; RBC Distribution Width CV 15.6 % (11.6-14.6); Red Blood Count 2.48 M/mm3 (4.6-6.2); White Blood Count 9.5 K/mm3 (4.4-11.0)
[2023-05-13 04:41] LABS: Differential Indicated SCAN CRITERIA MET; Platelet Count 31 K/mm3 (150-450)
[2023-05-13 04:53] LABS: ALB/GLOB Ratio 0.3 RATIO (0.9-2.4); AST(SGOT) 85 U/L (15-37); Alanine Aminotransfer ALT/SGPT 32 U/L (16-61); Alkaline Phosphatase 142 U/L (45-117); Anion Gap 3 (5-15); BUN 28 mg/dL (7-18); BUN/Creat Ratio 9.8 RATIO (10-20); Calcium,Total 7.5 mg/dL (8.5-10.1); Chloride 105 mmol/L (98-107); Creatinine, Serum 2.85 mg/dL (0.70-1.30); EST Glomerular Filtration Rate 24 mL/min (>60); Est Glom Filt Rate - Afr Amer 29 mL/min (>60); Estimated Creatinine Clearance 29.36 ml/min; Globulin 3.2 g/dL (2.2-4.2); Glucose 166 mg/dL (74-106); Potassium 4.6 mmol/L (3.5-5.1); Protein, Total 4.2 g/dL (6.4-8.2); Sodium Level 140 mmol/L (136-145)
[2023-05-13 05:07] LABS: Platelet Estimate MOD DEC (ADEQ)
[2023-05-13] MEDS: Piperacil/Tazobactam 3.375 GM in 0.9% Normal Saline (50mL MB+) 50 ML IV ×3 (05:51→23:10)
[2023-05-13] MEDS: Insulin Lispro 100 UNIT/ML INSULN.PEN SC (06:31)
[2023-05-13] MEDS: Nystatin Powder 15gm Bottle 1 APPLIC TOPICAL ×2 (06:32→22:17)
[2023-05-13 07:03] LABS: Bedside Glucose 151 mg/dL (74-106)
--- NOTE | 2023-05-13 07:21 | PCM.PN.INT ---
Assessment & Plan Assessment/Plan (1) Sepsis: PLAN: Plan RECOMMENDATIONS: 1. Continue antibiotics to complete 7 days of therapy. 2. Continue thiamine and folic acid. 3. Encourage incentive spirometer use and mobilize patient as tolerated. 4. Transfuse if hemoglobin drops below 7 g/dL. Continue PPI therapy. 5. Will sign off from a critical care perspective. Please call with any additional questions. IMPRESSIONS: 1. Sepsis The patient presented to the hospital with sepsis due to right lower lobe pneumonia with acute sepsis related organ dysfunction as evidenced by lactic acidemia. Plan to continue empiric broad-spectrum antimicrobials to complete 7 days of therapy. The patient did receive supplemental IV fluid hydration and remains hemodynamically stable. 2. Acute kidney injury Most likely prerenal in etiology in the setting #1. Continue to monitor urine output for now. There is no current indication for renal replacement therapy. Renal ultrasound was unremarkable. If renal function continues to worsen, consider nephrology consultation. 3. History of alcohol dependency/medical noncompliance/hypertension/diabetes mellitus/coronary artery disease/valvular heart disease/anemia Complicates care, management, recovery and prognosis. Continue supportive care as noted above. Continue symptomatic management of any alcohol withdrawal symptoms. Recommend continuing to monitor H&H daily. Transfuse if hemoglobin drops below 7 g/dL. This note was generated with [employer] dictation software. It may contain incorrect words, spelling, and punctuation that were not noted in checking the note before signing. Subjective Subjective The patient was seen and examined at the bedside this morning. Events from the last 24 hours have been reviewed. The patient remains afebrile hemodynamically stable. Hemoglobin is stable at 8.4 g/dL this morning with a platelet count of 31,000. Creatinine has increased to 2.85. No overnight issues were identified by the nursing staff. Objective Data Objective Data The patient's most recent lab work, culture data and imaging studies have all been personally reviewed. Infectious workup has been unrevealing to date. Vital Signs: Vital Signs Temp Pulse Resp BP Pulse Ox O2 Del Method O2 Flow Rate 97 F L 80 16 124/92 H 99 Bi-pap 2 05/13/23 06:32 05/13/23 06:32 05/13/23 06:32 05/13/23 06:32 05/13/23 06:32 05/13/23 06:32 05/12/23 21:20 FiO2 30 05/13/23 06:32 Oxygen Flow Rate (L/min) 2 Oxygen Delivery Method Bi-pap Weight: 189 lb 2.506 oz Body Mass Index (BMI) 26.4 Intake & Output: Intake and Output for Last 24 Hours 05/11/23 05/12/23 05/13/23 23:59 23:59 23:59 Intake Total 2211.25 / 2211.25 1790.00 / 1790.00 50 / 50 Output Total 650 / 850 1350 / 1350 200 / 200 Balance 1561.25 / 1361.25 440.00 / 440.00 -150 / -150 Lab / Micro Data Attestation: I reviewed the patient's lab results. 05/13/23 04:20 05/13/23 04:20 Labs: Laboratory Results - last 24 hr 05/12/23 06:50: Blood Type O NEGATIVE, Antibody Screen NEGATIVE 05/12/23 08:25: Immature Plt Fraction 10.0 H, Retic Count 1.44, Immature Retic Fraction 8.50, Retic Hgb Equivalent 31.7, Iron 46 L, TIBC 46 L, Iron Saturation 100.0 H, Vitamin B12 > 2000 H 05/12/23 08:44: POC Glucose 89 05/12/23 11:53: POC Glucose 147 H 05/12/23 16:25: POC Glucose 179 H 05/12/23 21:13: POC Glucose 197 H 05/13/23 04:20: WBC 9.5, RBC 2.48 L, Hgb 8.4 L, Hct 26.0 L, MCV 104.8 H, MCH 33.9 H, MCHC 32.3, RDW Std Deviation 60.0 H, RDW Coeff of Kalpana 15.6 H, Plt Count 31 L*, MPV 12.4 H, Immature Gran % (Auto) 1.200 H, Neut % (Auto) 79.2 H, Lymph % (Auto) 7.4 L, [place] % (Auto) 9.6, Eos % (Auto) 2.0, Baso % (Auto) 0.6, Absolute Neuts (auto) 7.6, Absolute Lymphs (auto) 0.70 L, Nucleated RBC % 0, Diff Path Review June, Platelet Estimate MOD DEC, Sodium 140, Potassium 4.6, Chloride 105, Carbon Dioxide 32.0, Anion Gap 3 L, BUN 28 H, Creatinine 2.85 H, Estim Creat Clear Calc 29.36, Est GFR (MDRD) Af Amer 29 L, Est GFR (MDRD) Non-Af 24 L, BUN/Creatinine Ratio 9.8 L, Glucose 166 H, Calcium 7.5 L, Total Bilirubin 0.60, AST 85 H, ALT 32, Alkaline Phosphatase 142 H, Total Protein 4.2 L, Albumin 1.0 L, Globulin 3.2, Albumin/Globulin Ratio 0.3 L 05/13/23 06:27: POC Glucose 151 H Micro: Microbiology 05/12/23 17:50 Stool Stool Occult Blood (IBIS) - Final Occult Blood Positive 05/10/23 12:40 Blood Culture (Wb) - Arm Left Blood Culture - Preliminary No growth in 48 hours. 05/10/23 10:35 Blood Culture (Wb) - Left Hand Blood Culture - Preliminary No growth in 48 hours. 05/10/23 17:30 Urine Catheter - Catheter Urine Culture - Preliminary Gram negative megan 05/09/23 21:31 Urine, Clean Catch Legionella Antigen - Final 05/09/23 21:31 Urine, Clean Catch Streptococcus pneumoniae Antigen (M - Final ABG Data ABG results: ABG 05/12/23 02:17 Specimen Type ART Sample Site R Radial pH 7.42 Bicarbonate Actual 30.7 H Total CO2 32 Base Excess 6 H O2 Saturation 98 O2 % 30.0 ABG pCO2 47.3 H ABG pO2 112 H Cipriano Test Positive O2 Delivery Device BiPAP Vent Mode NIV Clinical Comments 16 14 30% Radiography Diagnostic Testing: Radiology Impression Renal Ultrasound 05/11/23 07:22 IMPRESSION: Normal ultrasound of the kidneys. Small amount of free fluid is seen in the pelvis. Electronically Signed: Carlos Campos MD at 13:20 EDT , Physical Exam Const alert and no apparent distress HEENT normocephalic and head/scalp atraumatic Eyes PERRL, EOMs intact bilaterally and conjunctivae normal Neck supple General: trachea midline Chest inspection of chest normal Resp normal respiratory effort Auscultation: diminished lung sounds; Negative for rales, rhonchi or wheezes Cardio regular rate and regular rhythm Heart Sounds: murmur GI soft to palpation and non-tender Extremity no clubbing, cyanosis or edema Skin no rashes or lesions noted Neuro CN's II-XII intact bilaterally, moves all extremities and no focal motor deficits Psych Mood & Affect: flat affect Charges/Coding Visit Charges Inpatient E&M: 90638 Subs Hosp L2
[2023-05-13] MEDS: Pantoprazole Sodium 40 MG in 0.9% Normal Saline (100mL MB+) 100 ML 330 MG IV ×2 (08:00→22:23)
[2023-05-13] MEDS: Gabapentin 300 MG Capsule PO (08:01)
[2023-05-13] MEDS: Thiamine Hydrochloride 100 MG Tablet PO (08:01)
[2023-05-13] MEDS: Multivitamins,Therapeutic Tablet 1 TABLET PO (08:01)
[2023-05-13] MEDS: Folic Acid 1 MG Tablet PO (08:02)
[2023-05-13] MEDS: Menthol/Lanolin/Calamine/Znox 113 GM Tube 1 APPLIC TOPICAL ×2 (08:02→22:16)
[2023-05-13] MEDS: Lactobacillis Acidophilus 2 CAP PO ×2 (08:02→22:16)
[2023-05-13] MEDS: Metoprolol(XL)Succ 25 MG Tablet PO ×2 (08:17→22:17)
--- NOTE | 2023-05-13 08:50 | PCM.PN.HOSP ---
Reason for Visit Reason for Visit: Diagnoses Sepsis, unspecified organism (05/09/23) Unspecified severe protein-calorie malnutrition (05/09/23) Alcohol abuse, uncomplicated (05/09/23) Alcohol dependence, uncomplicated (05/09/23) Alcohol use, unspecified with withdrawal, uncomplicated (05/09/23) Alcohol-induced chronic pancreatitis (05/09/23) Acute cystitis without hematuria (05/09/23) Patient's noncompliance with other medical treatment and regimen due to unspecified reason (05/09/23) Subjective Subjective Patient seen. Had a relatively uneventful night. Kidney function continues to worsen consult has been placed to nephrology. Renal ultrasound came back unremarkable Objective Data Objective Data Vital Signs: Vital Signs Temp Pulse Resp BP Pulse Ox O2 Del Method O2 Flow Rate 97.8 F 73 18 110/72 100 Bi-pap 2 05/13/23 08:08 05/13/23 08:17 05/13/23 08:08 05/13/23 08:08 05/13/23 08:08 05/13/23 08:08 05/12/23 21:20 FiO2 30 05/13/23 08:08 Oxygen Flow Rate (L/min) 2 Oxygen Delivery Method Bi-pap Weight: 85.8 kg Body Mass Index (BMI) 26.4 Intake & Output: Intake and Output for Last 24 Hours 05/11/23 05/12/23 05/13/23 23:59 23:59 23:59 Intake Total 2211.25 / 2211.25 1790.00 / 1790.00 160 / 160 Output Total 650 / 850 1350 / 1350 200 / 200 Balance 1561.25 / 1361.25 440.00 / 440.00 -40 / -40 Lab / Micro Data 05/13/23 04:20 05/13/23 04:20 Labs: Laboratory Results - last 24 hr 05/12/23 08:25: Iron 46 L, TIBC 46 L, Iron Saturation 100.0 H, Vitamin B12 > 2000 H 05/12/23 08:44: POC Glucose 89 05/12/23 11:53: POC Glucose 147 H 05/12/23 16:25: POC Glucose 179 H 05/12/23 21:13: POC Glucose 197 H 05/13/23 04:20: WBC 9.5, RBC 2.48 L, Hgb 8.4 L, Hct 26.0 L, MCV 104.8 H, MCH 33.9 H, MCHC 32.3, RDW Std Deviation 60.0 H, RDW Coeff of Kalpana 15.6 H, Plt Count 31 L*, MPV 12.4 H, Immature Gran % (Auto) 1.200 H, Neut % (Auto) 79.2 H, Lymph % (Auto) 7.4 L, [place] % (Auto) 9.6, Eos % (Auto) 2.0, Baso % (Auto) 0.6, Absolute Neuts (auto) 7.6, Absolute Lymphs (auto) 0.70 L, Nucleated RBC % 0, Diff Path Review June, Platelet Estimate MOD DEC, Sodium 140, Potassium 4.6, Chloride 105, Carbon Dioxide 32.0, Anion Gap 3 L, BUN 28 H, Creatinine 2.85 H, Estim Creat Clear Calc 29.36, Est GFR (MDRD) Af Amer 29 L, Est GFR (MDRD) Non-Af 24 L, BUN/Creatinine Ratio 9.8 L, Glucose 166 H, Calcium 7.5 L, Total Bilirubin 0.60, AST 85 H, ALT 32, Alkaline Phosphatase 142 H, Total Protein 4.2 L, Albumin 1.0 L, Globulin 3.2, Albumin/Globulin Ratio 0.3 L 05/13/23 06:27: POC Glucose 151 H Micro: Microbiology 05/10/23 17:30 Urine Catheter - Catheter Urine Culture - Final Escherichia coli 05/12/23 17:50 Stool Stool Occult Blood (IBIS) - Final Occult Blood Positive 05/10/23 12:40 Blood Culture (Wb) - Arm Left Blood Culture - Preliminary No growth in 48 hours. 05/10/23 10:35 Blood Culture (Wb) - Left Hand Blood Culture - Preliminary No growth in 48 hours. 05/09/23 21:31 Urine, Clean Catch Legionella Antigen - Final 05/09/23 21:31 Urine, Clean Catch Streptococcus pneumoniae Antigen (M - Final Physical Exam Narrative GENERAL: Ill looking HEENT: Atraumatic; normocephalic EYES; Anicteric, Normal Conjunctiva NECK; supple, normal thyroid, RESPIRATORY: Diminished to auscultation CARDIOVASCULAR: Regular S1 S2, GI: soft, normoactive bowel sounds, : No Renal angle tenderness; EXTREMITIES: edema, no clubbing, MUSCULOSKELETAL: no muscle wasting NEURO: Awake; no lateralizing signs. SKIN: No Rash PSYCH; Flat affect Assessment & Plan Assessment/Plan (1) Sepsis: PLAN: Plan Patient is a 62-year-old gentleman with multiple comorbidities admitted with acute alcohol withdrawal. Patient had recently been discharged from the hospital of right SNF placement which he refused. He was also found to be hypotensive with acute cystitis on admission. 1. Sepsis ? Secondary to acute cystitis as evidenced by the presence of an infection, SIRS criteria as well as evidence of endorgan dysfunction with acute kidney injury as well as hypotension. Sepsis protocol initiated ordered lactic acid level blood cultures patient already on Rocephin patient resuscitated with IV fluids per protocol transferred to the intensive care unit in guarded ordered for PICC line. If patient does not respond to fluid resuscitation plan will be to start patient on norepinephrine. Consult placed to head rose grower ? 05/11/2023; patient remains in ICU did not require manage blood pressure remains soft ? 05/13/2023; patient blood pressure has stabilized 2. Chronic alcohol dependence with acute alcohol withdrawal ? Admitted to regular nursing floor managed with phenobarb taper.? Patient progressed being monitored with CIWA protocol ? 05/11/2023 patient remains on phenobarb taper ? 05/13/2023; phenobarb was discontinued given increasing lethargy 3. Acute kidney injury ? Patient started on IV fluids subsequent monitoring of electrolytes ordered ? 05/12/2023; patient kidney function continues to worsen will continue with IV fluids. Patient was on vancomycin and Zosyn vancomycin discontinued given worsening kidney ?05/13/2023 consult was placed to nephrology given worsening kidney function. Renal ultrasound obtained the day prior came back unremarkable 4. Mild hyponatremia ? Secondary to chronic alcohol abuse monitoring 5. Coagulopathy ? Secondary to chronic liver disease from patient chronic alcohol use 6. Acute transaminitis ? Monitoring 7.? Diabetes mellitus type II -Continue patient on his home regimen in addition to Accu-Cheks before meals and at bedtime with sliding scale coverage 8.? Sick sinus syndrome ? Status post pacemaker placement 9.? History of ascending aortic dissection ? Status post repair 10.? Valvular heart disease - history of aortic valve replacement with bioprosthetic material 11.? Hypertension - Blood pressure low on admission antihypertensives held 12. Dyslipidemia -Patient is on statin therapy, continued at home dose 13. GERD ? On famotidine 14. Thrombocytopenia ? Patient has had a precipitous drop in his platelet count. No bleeding at this point we will continue to monitor 15. Anemia ? Suspected to be secondary to anemia of chronic disorder monitoring H&H with plans to transfuse if patient becomes symptomatic or hemoglobin falls below 7 16. DVT prophylaxis ? SCDs only given that patient coagulopathic Time spent in the patient's overall evaluation,decision-making process, review of diagnostic data, adjustment of management, discussion with other providers, nursing nursing and ancillary staff involved in patient's care documentation, 40 Minutes Charges/Coding Visit Charges Inpatient E&M: 56496 Subs Hosp L2
[2023-05-13] MEDS: Potassium Chloride Oral Tablet 20 MEQ PO (09:19)
[2023-05-13 09:40] LABS: Pathologist Review Reviewed
[2023-05-13 12:00] LABS: Bedside Glucose 157 mg/dL (74-106)
--- NOTE | 2023-05-13 12:54 | CON.PCM.RE_ITS ---
Assessment & Plan Assessment/Plan (1) MALIK (acute kidney injury): (2) Sepsis: (3) Chronic alcohol abuse: PLAN: Plan This is a 62-year-old male with past medical history significant for hypertension, hyperlipidemia, diabetes mellitus type 2, diabetic neuropathy, history of coronary artery disease status post ME, history of mechanical aortic valve replacement converted to bio prosthetic valve, history of alcohol abuse who was admitted to the hospital on May 08 after presenting with complaints abdominal pain. Workup in the emergency room concerning for a UTI and pneumonia, admitted for acute sepsis. Nephrology consulted in view of rising creatinine. Patient's baseline creatinine is around 1 mg/dL. On May 08 patient's creatinine was 1.50 mg/dL, creatinine slowly rising daily and is up to 2.85 mg/dL today. Patient is nonoliguric. Potassium and bicarb are normal. Since admission patient had CT with IV contrast on 05/08. He also had Toradol with last dose which seems to be on May 09. Patient has also been hypotensive during this hospitalization. Quite possibly pre-renal MALIK evolving into ischemic ATN in setting of sepsis with volume depletion, hypotension and possible exposure to contrast and NSAIDs. At this time there is no acute indication for [facility]. Renal ultrasound did not show any evidence of hydronephrosis. Patient is not on any ANKIT or ARB's, no recent diuretics. Patient is on gentle IV fluids. Recommend continue with gentle IV fluids. Oral intake may be poor, patient may need encouragement with solute and fluid intake. Patient does have some mild edema to lower arms and hands, mild edema to lower legs but possibly from third spacing, his last albumin was 1.0. Reviewed past UA, have been negative for protein, last UA positive for protein and blood but is currently being treated for UTI. For sepsis, cystitis, pneumonia, patient is on IV antibiotics Zosyn. Blood pressures low normal, will add holding parameters to Toprol. Hopefully renal function will begin to plateau and then improve. Will continue monitor renal function along with you. Further orders forthcoming as hospitalization evolves. Thank you for allowing us to participate in the care of Mr. Melendrez HPI Consult Data Date of Consult: 05/13/23 HPI Narrative HPI Narrative: ANALILIA MELENDREZ, is a 62 M who presented to the emergency room with complaints of abdominal pain. Patient was just recently admitted to [facility] from April 20 April 26 for help with alcohol detoxification, discharged to his father's home. Patient has history of hypertension, hyperlipidemia, diabetes mellitus type 2, diabetic neuropathy, history of coronary artery disease status post ME, history of mechanical aortic valve replacement converted to bio p rosthetic valve, history of alcohol abuse. Workup in the emergency room included UA concerning for UTI/cystitis, CT showing pleural effusion with moderate ascites. Patient was admitted for further evaluation and treatment. Nephrology consulted in view of rising serum creatinine. Patient is alert to name but however having difficult time recalling recent events therefore information gathered from the chart. Patient's baseline creatinine is around 1 mg/dL. On presentation to the emergency room May 08, creatinine 1.50. Creatinine has been slowly increasing daily and today his creatinine is up to 2.85 mg/dL. PFSH Medical History AAA (abdominal aortic aneurysm) Abdominal ascites Admitted to alcohol detoxification center Adrenal nodule Alcohol abuse Alcohol dependence Alcohol dependence Alcoholic hepatitis Alcoholism Anxiety Ascending aortic dissection (~2005) Cardiac pacemaker in situ (~06/2016) Chronic pancreatitis Diabetes Diabetes mellitus, type II Essential hypertension Gastric wall thickening Hiatal hernia History of diabetes mellitus HTN (hypertension) Hx of hypercholesterolemia Left carotid bruit Myocardial infarct Non-sustained ventricular tachycardia Pacemaker Pacemaker Pancreatitis Pure hypercholesterolemia Right bundle branch block (RBBB) Seizures Sick sinus syndrome Smoker Substance abuse SVT (supraventricular tachycardia) Thoracic aortic aneurysm Tobacco use Home Medications omeprazole 40 mg capsule,delayed release 40 mg PO DAILY ACID REFLUX 06/10/18 [History Last Taken 04/19/23] amlodipine 5 mg tablet 5 mg PO DAILY BLOOD PRESSURE 10/17/20 [History Last Taken 04/19/23] atorvastatin 10 mg tablet 10 mg PO DAILY CHOLESTEROL 10/17/20 [History Last Taken 04/19/23] hydralazine 25 mg tablet 25 mg PO TID BP 10/17/20 [History Last Taken 04/19/23] hydrochlorothiazide 12.5 mg tablet 12.5 mg PO DAILY BLOOD PRESSURE 10/17/20 [History Last Taken 11/11/21] ramipril 10 mg capsule 10 mg PO BID BLOOD PRESSURE 10/17/20 [History Last Taken 11/11/21] dapagliflozin propanediol 10 mg tablet (Farxiga) 10 mg PO DAILY DIABETES 09/30/21 [History Last Taken 04/19/23] multivitamin 1 tab PO DAILY SUPPLEMENT 11/11/21 [History Last Taken 11/10/21] potassium chloride 10 mEq tablet,extended release(part/cryst) 20 meq PO DAILY SUPPLEMENT 11/11/21 [History Last Taken Unknown] metoprolol succinate 50 mg tablet,extended release 24 hr 50 mg PO BID BLOOD PRESSURE #60 tabs 10/15/22 [Rx Last Taken 04/19/23] gabapentin 300 mg capsule 300 mg PO DAILY NEUROPATHY 11/14/22 [History Last Ta oumar Unknown] insulin glargine 100 unit/mL (3 mL) subcutaneous pen (Lantus Solostar U-100 Insulin) 10 unit subcut 1200 DIABETES 11/14/22 [History Last Taken 04/19/23] metformin 500 mg tablet,extended release 24 hr 500 mg PO BID DIABETES 11/15/22 [History Last Taken 04/19/23] famotidine 40 mg tablet 40 mg PO DAILY ACID REFLUX 04/20/23 [History Last Taken 04/19/23] Allergy/AdvReac Type Severity Reaction Status Date / Time No Known Allergies Allergy Verified 05/09/23 13:37 Family History Father CAD (coronary artery disease) Mother Dementia Surgical History H/O aortic valve replacement H/O cardiac catheterization History of aortic aneurysm repair (~2016) History of aortic valve replacement with bioprosthetic valve (~2016) History of cataract surgery History of hernia repair Social History (Updated 05/09/23 @ 13:38 by Myra Nova) household members: family housing: house Smoking Status: Current every day smoker tobacco type: cigarettes alcohol intake: current alcohol intake frequency: 0-2 drinks per day details: Reports currently ~ 2 tall boys daily. substance use type: former substance user caffeine: Yes Type: coffee Number of servings: 3 ROS ROS Narrative Unable to obtain Physical Exam Narrative Alert to name, no apparent distress. Drowsy S1, S2, RRR Lungs clear anteriorly. No wheezes, rhonchi rales Abdomen soft, positive bowel sound Trace edema bilateral lower arms and hands. No pitting edema bilateral lower legs Indwelling Gillis with clear urine in bag Lab / Micro Data 05/13/23 04:20 05/13/23 04:20 Labs: Laboratory Results - last 24 hr 05/12/23 04:10: Diff Path Review Reviewed 05/12/23 16:25: POC Glucose 179 H 05/12/23 21:13: POC Glucose 197 H 05/13/23 04:20: WBC 9.5, RBC 2.48 L, Hgb 8.4 L, Hct 26.0 L, MCV 104.8 H, MCH 33.9 H, MCHC 32.3, RDW Std Deviation 60.0 H, RDW Coeff of Kalpana 15.6 H, Plt Count 31 L*, MPV 12.4 H, Immature Gran % (Auto) 1.200 H, Neut % (Auto) 79.2 H, Lymph % (Auto) 7.4 L, [place] % (Auto) 9.6, Eos % (Auto) 2.0, Baso % (Auto) 0.6, Absolute Neuts (auto) 7.6, Absolute Lymphs (auto) 0.70 L, Nucleated RBC % 0, Diff Path Review June, Platelet Estimate MOD DEC, Sodium 140, Potassium 4.6, Chloride 105, Carbon Dioxide 32.0, Anion Gap 3 L, BUN 28 H, Creatinine 2.85 H, Estim Creat Clear Calc 29.36, Est GFR (MDRD) Af Amer 29 L, Est GFR (MDRD) Non-Af 24 L, BUN/Creatinine Ratio 9.8 L, Glucose 166 H, Calcium 7.5 L, Total Bilirubin 0.60, AST 85 H, ALT 32, Alkaline Phosphatase 142 H, Total Protein 4.2 L, Albumin 1.0 L , Globulin 3.2, Albumin/Globulin Ratio 0.3 L 05/13/23 06:27: POC Glucose 151 H 05/13/23 11:24: POC Glucose 157 H Micro: Microbiology 05/10/23 17:30 Urine Catheter - Catheter Urine Culture - Final Escherichia coli 05/12/23 17:50 Stool Stool Occult Blood (IBIS) - Final Occult Blood Positive 05/10/23 12:40 Blood Culture (Wb) - Arm Left Blood Culture - Preliminary No growth in 48 hours. 05/10/23 10:35 Blood Culture (Wb) - Left Hand Blood Culture - Preliminary No growth in 48 hours.
[2023-05-13 19:01] LABS: Bedside Glucose 136 mg/dL (74-106)
[2023-05-13 22:51] LABS: Bedside Glucose 145 mg/dL (74-106)
[2023-05-14] VITALS (12 sets, daily range): BP systolic 125–136; BP diastolic 84–101; PULSE 59–73; RESP 14–18; TEMP 36–36.4; O2SAT 96–100; BMI 26.0
[2023-05-14] MEDS: 0.9% Normal Saline (1000mL) 1,000 ML 50 ML IV ×2 (04:02→21:41)
[2023-05-14] MEDS: 0.9% Saline Lock 10 ML Syringe IV (04:03)
[2023-05-14] MEDS: Piperacil/Tazobactam 3.375 GM in 0.9% Normal Saline (50mL MB+) 50 ML IV (05:50)
[2023-05-14 06:46] LABS: Bedside Glucose 129 mg/dL (74-106)
--- NOTE | 2023-05-14 07:34 | PN.HOSP_ITS ---
Reason for Visit Reason for Visit: Diagnoses Sepsis, unspecified organism (05/09/23) Unspecified severe protein-calorie malnutrition (05/09/23) Alcohol abuse, uncomplicated (05/09/23) Alcohol dependence, uncomplicated (05/09/23) Alcohol use, unspecified with withdrawal, uncomplicated (05/09/23) Alcohol-induced chronic pancreatitis (05/09/23) Acute cystitis without hematuria (05/09/23) Patient's noncompliance with other medical treatment and regimen due to unspecified reason (05/09/23) Subjective Subjective Patient seen, was transferred from intensive care unit to PCU the day prior. Patient appears delirious this a.m. Kidney function continues to worsen Objective Data Objective Data Vital Signs: Vital Signs Temp Pulse Resp BP Pulse Ox O2 Del Method O2 Flow Rate 97.4 F L 59 L 14 135/101 H 100 Bi-pap 2 05/14/23 03:26 05/14/23 04:05 05/14/23 04:05 05/14/23 03:26 05/14/23 04:05 05/14/23 04:00 05/13/23 22:14 FiO2 30 05/14/23 04:05 Oxygen Flow Rate (L/min) 2 Oxygen Delivery Method Bi-pap Weight: 84.7 kg Body Mass Index (BMI) 26.0 Intake & Output: Intake and Output for Last 24 Hours 05/12/23 05/13/23 05/14/23 23:59 23:59 23:59 Intake Total 1790.00 / 1790.00 1470 / 1470 50 / 50 Output Total 1350 / 1350 1325 / 1325 450 / 450 Balance 440.00 / 440.00 145 / 145 -400 / -400 Lab / Micro Data 05/14/23 07:28 05/14/23 07:28 Labs: Laboratory Results - last 24 hr 05/12/23 04:10: Diff Path Review Reviewed 05/13/23 11:24: POC Glucose 157 H 05/13/23 18:42: POC Glucose 136 H 05/13/23 22:25: POC Glucose 145 H 05/14/23 05:55: POC Glucose 129 H Micro: Microbiology 05/10/23 17:30 Urine Catheter - Catheter Urine Culture - Final Escherichia coli 05/12/23 17:50 Stool Stool Occult Blood (IBIS) - Final Occult Blood Positive 05/10/23 12:40 Blood Culture (Wb) - Arm Left Blood Culture - Preliminary No growth in 48 hours. 05/10/23 10:35 Blood Culture (Wb) - Left Hand Blood Culture - Preliminary No growth in 48 hours. 05/09/23 21:31 Urine, Clean Catch Legionella Antigen - Final 05/09/23 21:31 Urine, Clean Catch Streptococcus pneumoniae Antigen (M - Final Physical Exam Narrative GENERAL: Ill looking, delirious HEENT: Atraumatic; normocephalic EYES; Anicteric, Normal Conjunctiva NECK; supple, normal thyroid, RESPIRATORY: Diminished to auscultation CARDIOVASCULAR: Regular S1 S2, GI: soft, normoactive bowel sounds, : No Renal angle tenderness; EXTREMITIES: edema, no clubbing, MUSCULOSKELETAL: no muscle wasting NEURO: Awake; no lateralizing signs. SKIN: No Rash PSYCH; Flat affect Assessment & Plan Assessment/Plan (1) Sepsis: PLAN: Plan Patient is a 62-year-old gentleman with multiple comorbidities admitted with acute alcohol withdrawal. Patient had recently been discharged from the hospital of right SNF placement which he refused. He was also found to be hypotensive with acute cystitis on admission. 1. Sepsis ? Secondary to acute cystitis as evidenced by the presence of an infection, SIRS criteria as well as evidence of endorgan dysfunction with acute kidney injury as well as hypotension. Sepsis protocol initiated ordered lactic acid level blood cultures patient already on Rocephin patient resuscitated with IV fluids per protocol transferred to the intensive care unit in guarded ordered for PICC line. If patient does not respond to fluid resuscitation plan will be to start patient on norepinephrine. Consult placed to tuberculosis specialist ? 05/11/2023; patient remains in ICU did not require manage blood pressure remains soft ? 05/13/2023; patient blood pressure has stabilized 2. Chronic alcohol dependence with acute alcohol withdrawal ? Admitted to regular nursing floor managed with phenobarb taper.? Patient pr ogressed being monitored with CIWA protocol ? 05/11/2023 patient remains on phenobarb taper ? 05/13/2023; phenobarb was discontinued given increasing lethargy ? 05/14/2023; patient is delirious this a.m. Phenobarb has been weaned off the day prior. 3. Acute kidney injury ? Patient started on IV fluids subsequent monitoring of electrolytes ordered ? 05/12/2023; patient kidney function continues to worsen will continue with IV fluids. Patient was on vancomycin and Zosyn vancomycin discontinued given worsening kidney ?05/13/2023 consult was placed to nephrology given worsening kidney function. Renal ultrasound obtained the day prior came back unremarkable ? 05/14/2023; kidney function continues to worsen continuous monitoring ordered 4. Mild hyponatremia ? Secondary to chronic alcohol abuse monitoring 5. Coagulopathy ? Secondary to chronic liver disease from patient chronic alcohol use 6. Acute transaminitis ? Monitoring 7.? Diabetes mellitus type II -Continue patient on his home regimen in addition to Accu-Cheks before meals and at bedtime with sliding scale coverage 8.? Sick sinus syndrome ? Status post pacemaker placement 9.? History of ascending aortic dissection ? Status post repair 10.? Valvular heart disease - history of aortic valve replacement with bioprosthetic material 11.? Hypertension - Blood pressure low on admission antihypertensives held 12. Dyslipidemia -Patient is on statin therapy, continued at home dose 13. GERD ? On famotidine 14. Thrombocytopenia ? Patient has had a precipitous drop in his platelet count. No bleeding at this point we will continue to monitor 05/14/2023 platelet count trending up we will continue with monitoring 15. Anemia ? Suspected to be secondary to anemia of chronic disorder monitoring H&H with plans to transfuse if patient becomes symptomatic or hemoglobin falls below 7 16. DVT prophylaxis ? SCDs only given that patient coagulopathic 17. Physical deconditioning - Requested for PT OT eval and licensed clinical social worker to assist with discharge planning Time spent in the patient's overall evaluation,decision-making process, review of diagnostic data, adjustment of management, discussion with other providers, nursing nursing and ancillary staff involved in patient's care documentation, 35 Minutes Charges/Coding Visit Charges Inpatient E&M: 70802 Subs Hosp L2
[2023-05-14 07:46] LABS: Absolute Lymphocyte Count 0.94 X10^3/uL (0.83-4.51); Absolute Neutrophil Count 6.9 X10^3/uL (2.0-7.7); Basophil# 0.06 X10^3/uL; Basophil% 0.7 % (0-1); Eosinophil# 0.13 X10^3/uL; Eosinophils% 1.4 % (0-5); Hematocrit 27.1 % (40-54); Hemoglobin 8.8 g/dL (13.0-16.5); Lymphocyte # 0.94 X10^3/ul (0.83-4.51); Lymphocyte % 10.3 % (19-41); Mean Corp Hgb Conc 32.5 g/dL (32-36); Mean Corpuscular Volume 104.6 fL (80-94); Mean Platelet Vol. 12.5 fl (6.2-12.0); Monocyte# 0.87 X10^3/uL; Monocyte% 9.5 % (0-10); NRBC Flagged by Analyzer 0 % (0-5); Neutrophil # 6.91 X10^3/uL (2.7-7.7); Neutrophil % 75.4 % (47-70); POSITIVE COUNT YES; POSITIVE MORPHOLOGY YES; RBC Distribution Width CV 15.9 % (11.6-14.6); RBC Distribution Width SD 61.6 fl (35.1-43.9); Red Blood Count 2.59 M/mm3 (4.6-6.2); White Blood Count 9.2 K/mm3 (4.4-11.0)
[2023-05-14 07:52] LABS: Differential Indicated SCAN CRITERIA MET; Platelet Count 48 K/mm3 (150-450)
[2023-05-14 07:54] LABS: ALB/GLOB Ratio 0.3 RATIO (0.9-2.4); AST(SGOT) 42 U/L (15-37); Alanine Aminotransfer ALT/SGPT 27 U/L (16-61); Albumin, Serum 1.1 g/dL (3.2-5.0); Alkaline Phosphatase 140 U/L (45-117); Anion Gap 6 (5-15); BUN 29 mg/dL (7-18); BUN/Creat Ratio 9.9 RATIO (10-20); Calcium,Total 7.7 mg/dL (8.5-10.1); Chloride 108 mmol/L (98-107); Creatinine, Serum 2.93 mg/dL (0.70-1.30); EST Glomerular Filtration Rate 23 mL/min (>60); Est Glom Filt Rate - Afr Amer 28 mL/min (>60); Estimated Creatinine Clearance 28.56 ml/min; Globulin 3.5 g/dL (2.2-4.2); Glucose 136 mg/dL (74-106); Potassium 4.5 mmol/L (3.5-5.1); Protein, Total 4.6 g/dL (6.4-8.2); Sodium Level 142 mmol/L (136-145)
[2023-05-14 08:51] LABS: Platelet Estimate MKD DEC (ADEQ); Reactive Lymphocyte RARE
[2023-05-14] MEDS: Gabapentin 300 MG Capsule PO (08:59)
[2023-05-14] MEDS: Metoprolol(XL)Succ 25 MG Tablet PO ×2 (08:59→21:32)
[2023-05-14] MEDS: Thiamine Hydrochloride 100 MG Tablet PO (08:59)
[2023-05-14] MEDS: Folic Acid 1 MG Tablet PO (08:59)
[2023-05-14] MEDS: Potassium Chloride Oral Tablet 20 MEQ PO (08:59)
[2023-05-14] MEDS: Pantoprazole Sodium 40 MG in 0.9% Normal Saline (100mL MB+) 100 ML 330 MG IV ×2 (09:00→21:40)
[2023-05-14] MEDS: Lactobacillis Acidophilus 2 CAP PO ×2 (09:00→21:33)
[2023-05-14] MEDS: Menthol/Lanolin/Calamine/Znox 113 GM Tube 1 APPLIC TOPICAL ×2 (09:00→21:34)
[2023-05-14] MEDS: Multivitamins,Therapeutic Tablet 1 TABLET PO (09:02)
[2023-05-14 09:46] LABS: Pathologist Review Reviewed
--- NOTE | 2023-05-14 09:51 | PCM.PN.HOSP ---
Reason for Visit Reason for Visit: Diagnoses Sepsis, unspecified organism (05/09/23) Unspecified severe protein-calorie malnutrition (05/09/23) Alcohol abuse, uncomplicated (05/09/23) Alcohol dependence, uncomplicated (05/09/23) Alcohol use, unspecified with withdrawal, uncomplicated (05/09/23) Alcohol-induced chronic pancreatitis (05/09/23) Acute cystitis without hematuria (05/09/23) Patient's noncompliance with other medical treatment and regimen due to unspecified reason (05/09/23) Objective Data Objective Data Vital Signs: Vital Signs Temp Pulse Resp BP Pulse Ox O2 Del Method O2 Flow Rate 97.6 F L 61 16 136/93 H 100 Bi-pap 2 05/14/23 08:59 05/14/23 08:59 05/14/23 08:59 05/14/23 08:59 05/14/23 08:59 05/14/23 08:59 05/13/23 22:14 FiO2 30 05/14/23 08:59 Oxygen Flow Rate (L/min) 2 Oxygen Delivery Method Bi-pap Weight: 84.7 kg Body Mass Index (BMI) 26.0 Intake & Output: Intake and Output for Last 24 Hours 05/12/23 05/13/23 05/14/23 23:59 23:59 23:59 Intake Total 1790.00 / 1790.00 1470 / 1470 160 / 160 Output Total 1350 / 1350 1325 / 1325 450 / 450 Balance 440.00 / 440.00 145 / 145 -290 / -290 Lab / Micro Data 05/14/23 07:28 05/14/23 07:28 Labs: Laboratory Results - last 24 hr 05/13/23 04:20: Diff Path Review Reviewed 05/13/23 11:24: POC Glucose 157 H 05/13/23 18:42: POC Glucose 136 H 05/13/23 22:25: POC Glucose 145 H 05/14/23 05:55: POC Glucose 129 H 05/14/23 07:28: WBC 9.2, RBC 2.59 L, Hgb 8.8 L, Hct 27.1 L, MCV 104.6 H, MCH 34.0 H, MCHC 32.5, RDW Std Deviation 61.6 H, RDW Coeff of [place] 15.9 H, Plt Count 48 L*, MPV 12.5 H, Immature Gran % (Auto) 2.700 H, Neut % (Auto) 75.4 H, Lymph % (Auto) 10.3 L, [place] % (Auto) 9.5, Eos % (Auto) 1.4, Baso % (Auto) 0.7, Absolute Neuts (auto) 6.9, Absolute Lymphs (auto) 0.94, Nucleated RBC % 0, Diff Path Review May foll, Reactive Lymphocytes RARE, Platelet Estimate MKD DEC, Sodium 142, Potassium 4.5, Chloride 108 H, Carbon Dioxide 28.0, Anion Gap 6, BUN 29 H, Creatinine 2.93 H, Estim Creat Clear Calc 28.56, Est GFR (MDRD) Af Amer 28 L, Est GFR (MDRD) Non-Af 23 L, BUN/Creatinine Ratio 9.9 L, Glucose 136 H, Calcium 7.7 L, Total Bilirubin 0.60, AST 42 H, ALT 27, Alkaline Phosphatase 140 H, Total Protein 4.6 L, Albumin 1.1 L, Globulin 3.5, Albumin/Globulin Ratio 0.3 L Micro: Microbiology 05/10/23 17:30 Urine Catheter - Catheter Urine Culture - Final Escherichia coli 05/12/23 17:50 Stool Stool Occult Blood (IBIS) - Final Occult Blood Positive 05/10/23 12:40 Blood Culture (Wb) - Arm Left Blood Culture - Preliminary No growth in 48 hours. 05/10/23 10:35 Blood Culture (Wb) - Left Hand Blood Culture - Preliminary No growth in 48 hours. 05/09/23 21:31 Urine, Clean Catch Legionella Antigen - Final 05/09/23 21:31 Urine, Clean Catch Streptococcus pneumoniae Antigen (M - Final Physical Exam Narrative GENERAL: Ill looking HEENT: Atraumatic; normocephalic EYES; Anicteric, Normal Conjunctiva NECK; supple, normal thyroid, RESPIRATORY: Diminished to auscultation CARDIOVASCULAR: Regular S1 S2, GI: soft, normoactive bowel sounds, : No Renal angle tenderness; EXTREMITIES: edema, no clubbing, MUSCULOSKELETAL: no muscle wasting NEURO: Awake; no lateralizing signs. SKIN: No Rash PSYCH; Flat affect Assessment & Plan Assessment/Plan (1) Sepsis: PLAN: Plan Patient is a 62-year-old gentleman with multiple comorbidities admitted with acute alcohol withdrawal. Patient had recently been discharged from the hospital of right SNF placement which he refused. He was also found to be hypotensive with acute cystitis on admission. 1. Sepsis ? Secondary to acute cystitis as evidenced by the presence of an infection, SIRS criteria as well as evidence of endorgan dysfunction with acute kidney injury as well as hypotension. Sepsis protocol initiated ordered lactic acid level blood cultures patient already on Rocephin patient resuscitated with IV fluids per protocol transferred to the intensive care unit in guarded ordered for PICC line. If patient does not respond to fluid resuscitation plan will be to start patient on norepinephrine. Consult placed to health information tech ? 05/11/2023; patient remains in ICU did not require manage blood pressure remains soft ? 05/13/2023; patient blood pressure has stabilized 2. Chronic alcohol dependence with acute alcohol withdrawal ? Admitted to regular nursing floor managed with phenobarb taper.? Patient progressed being monitored with CIWA protocol ? 05/11/2023 patient remains on phenobarb taper ? 05/13/2023; phenobarb was discontinued given increasing lethargy 3. Acute kidney injury ? Patient started on IV fluids subsequent monitoring of electrolytes ordered ? 05/12/2023; patient kidney function continues to worsen will continue with IV fluids. Patient was on vancomycin and Zosyn vancomycin discontinued given worsening kidney ?05/13/2023 consult was placed to nephrology given worsening kidney function. Renal ultrasound obtained the day prior came back unremarkable 4. Mild hyponatremia ? Secondary to chronic alcohol abuse monitoring 5. Coagulopathy ? Secondary to chronic liver disease from patient chronic alcohol use 6. Acute transaminitis ? Monitoring 7.? Diabetes mellitus type II -Continue patient on his home regimen in addition to Accu-Cheks before meals and at bedtime with sliding scale coverage 8.? Sick sinus syndrome ? Status post pacemaker placement 9.? History of ascending aortic dissection ? Status post repair 10.? Valvular heart disease - history of aortic valve replacement with bioprosthetic material 11.? Hypertension - Blood pressure low on admission antihypertensives held 12. Dyslipidemia -Patient is on statin therapy, continued at home dose 13. GERD ? On famotidine 14. Thrombocytopenia ? Patient has had a precipitous drop in his platelet count. No bleeding at this point we will continue to monitor 15. Anemia ? Suspected to be secondary to anemia of chronic disorder monitoring H&H with plans to transfuse if patient becomes symptomatic or hemoglobin falls below 7 16. DVT prophylaxis ? SCDs only given that patient coagulopathic Time spent in the patient's overall evaluation,decision-making process, review of diagnostic data, adjustment of management, discussion with other providers, nursing nursing and ancillary staff involved in patient's care documentation, 40 Minutes
--- NOTE | 2023-05-14 10:56 | PCM.PN.REN ---
Subjective Subjective Follow-up on acute kidney injury. He is not doing well, he is not eating, wants to go home. Hemodynamically stable. Appears to be quite edematous. Objective Data Objective Data Vital Signs: Vital Signs Temp Pulse Resp BP Pulse Ox O2 Del Method O2 Flow Rate 97.6 F L 63 18 136/93 H 100 Bi-pap 2 05/14/23 08:59 05/14/23 10:17 05/14/23 10:17 05/14/23 08:59 05/14/23 10:17 05/14/23 08:59 05/13/23 22:14 FiO2 30 05/14/23 10:17 Oxygen Flow Rate (L/min) 2 Oxygen Delivery Method Bi-pap Weight: 84.7 kg Body Mass Index (BMI) 26.0 Intake & Output: Intake and Output for Last 24 Hours 05/12/23 05/13/23 05/14/23 23:59 23:59 23:59 Intake Total 1790.00 / 1790.00 1470 / 1470 210 / 210 Output Total 1350 / 1350 1325 / 1325 450 / 450 Balance 440.00 / 440.00 145 / 145 -240 / -240 Lab / Micro Data Attestation: I reviewed the patient's lab results. 05/14/23 07:28 05/14/23 07:28 Labs: Laboratory Results - last 24 hr 05/13/23 04:20: Diff Path Review Reviewed 05/13/23 11:24: POC Glucose 157 H 05/13/23 18:42: POC Glucose 136 H 05/13/23 22:25: POC Glucose 145 H 05/14/23 05:55: POC Glucose 129 H 05/14/23 07:28: WBC 9.2, RBC 2.59 L, Hgb 8.8 L, Hct 27.1 L, MCV 104.6 H, MCH 34.0 H, MCHC 32.5, RDW Std Deviation 61.6 H, RDW Coeff of [place] 15.9 H, Plt Count 48 L*, MPV 12.5 H, Immature Gran % (Auto) 2.700 H, Neut % (Auto) 75.4 H, Lymph % (Auto) 10.3 L, [place] % (Auto) 9.5, Eos % (Auto) 1.4, Baso % (Auto) 0.7, Absolute Neuts (auto) 6.9, Absolute Lymphs (auto) 0.94, Nucleated RBC % 0, Diff Path Review May foll, Reactive Lymphocytes RARE, Platelet Estimate MKD DEC, Sodium 142, Potassium 4.5, Chloride 108 H, Carbon Dioxide 28.0, Anion Gap 6, BUN 29 H, Creatinine 2.93 H, Estim Creat Clear Calc 28.56, Est GFR (MDRD) Af Amer 28 L, Est GFR (MDRD) Non-Af 23 L, BUN/Creatinine Ratio 9.9 L, Glucose 136 H, Calcium 7.7 L, Total Bilirubin 0.60, AST 42 H, ALT 27, Alkaline Phosphatase 140 H, Total Protein 4.6 L, Albumin 1.1 L, Globulin 3.5, Albumin/Globulin Ratio 0.3 L Micro: Microbiology 05/10/23 17:30 Urine Catheter - Catheter Urine Culture - Final Escherichia coli 05/12/23 17:50 Stool Stool Occult Blood (IBIS) - Final Occult Blood Positive 05/10/23 12:40 Blood Culture (Wb) - Arm Left Blood Culture - Preliminary No growth in 48 hours. 05/10/23 10:35 Blood Culture (Wb) - Left Hand Blood Culture - Preliminary No growth in 48 hours. 05/09/23 21:31 Urine, Clean Catch Legionella Antigen - Final 05/09/23 21:31 Urine, Clean Catch Streptococcus pneumoniae Antigen (M - Final Rhythm Strip Rhythm Strip: Sinus Rhythm Physical Exam Const alert, no apparent distress and average body habitus Orientation / Consciousness: oriented to person and confused HEENT normocephalic Head and Scalp: atraumatic Resp clear to auscultation bilaterally Auscultation: diminished lung sounds bilateral lower Cardio no murmurs GI non-tender Auscultation: normoactive bowel sounds Palpation: ascites external exam normal Neuro Sensorium / Orientation: awake Psych cooperative Assessment & Plan Assessment/Plan (1) MALIK (acute kidney injury): PLAN: I suspect she has got ATN and that is multifactorial. He probably has chronic renal hypoperfusion due to advanced liver failure/cirrhosis, sepsis, nonsteroidals, IV contrast. His liver failure is much more advanced current admission with thrombocytopenia, profound hypoalbuminemia, prolonged PT and INR. Fortunately his creatinine seems to have been plateauing and he produces good urine. His fluid balance is negative and he is hemodynamically stable. Once his creatinine starts improving, we may start using diuretics
[2023-05-14] MEDS: Insulin Lispro 100 UNIT/ML INSULN.PEN SC ×3 (11:56→21:35)
[2023-05-14 12:38] LABS: Bedside Glucose 223 mg/dL (74-106)
[2023-05-14] MEDS: Nystatin Powder 15gm Bottle 1 APPLIC TOPICAL ×2 (12:55→21:33)
--- NOTE | 2023-05-14 13:49 | CASEMGMT ---
Social Work As per physician, pt will need SNF at discharge. Pt is still confused at present. SW called pt's daughter and JAKI Melendrez, message left. BLANKA will continue to follow. KARAN Weston
[2023-05-14 16:43] LABS: Bedside Glucose 157 mg/dL (74-106)
[2023-05-14] MEDS: MELATONIN 3 MG TABLET PO (21:33)
[2023-05-14] MEDS: Cefdinir 300 MG Capsule PO (21:33)
[2023-05-14 21:45] LABS: Bedside Glucose 185 mg/dL (74-106)
[2023-05-15] VITALS (11 sets, daily range): BP systolic 117–151; BP diastolic 78–94; PULSE 60–78; RESP 14–20; TEMP 36–36.7; O2SAT 98–100; BMI 26.4
[2023-05-15] MEDS: Nystatin Powder 15gm Bottle 1 APPLIC TOPICAL ×3 (06:26→20:58)
[2023-05-15 06:38] LABS: Absolute Lymphocyte Count 1.01 X10^3/uL (0.83-4.51); Absolute Neutrophil Count 7.3 X10^3/uL (2.0-7.7); Basophil# 0.05 X10^3/uL; Basophil% 0.5 % (0-1); Eosinophil# 0.16 X10^3/uL; Eosinophils% 1.7 % (0-5); Hematocrit 24.7 % (40-54); Lymphocyte # 1.01 X10^3/ul (0.83-4.51); Lymphocyte % 10.6 % (19-41); Mean Corp Hgb Conc 32.4 g/dL (32-36); Mean Corpuscular Hgb 34.3 pg (27.0-32.0); Mean Platelet Vol. 12.2 fl (6.2-12.0); Monocyte# 0.81 X10^3/uL; Monocyte% 8.5 % (0-10); NRBC Flagged by Analyzer 0 % (0-5); Neutrophil # 7.34 X10^3/uL (2.7-7.7); Neutrophil % 76.8 % (47-70); POSITIVE COUNT YES; POSITIVE MORPHOLOGY YES; Platelet Count 80 K/mm3 (150-450); RBC Distribution Width CV 16.3 % (11.6-14.6); RBC Distribution Width SD 63.7 fl (35.1-43.9); Red Blood Count 2.33 M/mm3 (4.6-6.2); White Blood Count 9.6 K/mm3 (4.4-11.0)
[2023-05-15 06:42] LABS: Differential Indicated SCAN CRITERIA MET
[2023-05-15 06:44] LABS: Bedside Glucose 88 mg/dL (74-106)
[2023-05-15 07:05] LABS: ALB/GLOB Ratio 0.3 RATIO (0.9-2.4); AST(SGOT) 46 U/L (15-37); Alanine Aminotransfer ALT/SGPT 28 U/L (16-61); Albumin, Serum 1.1 g/dL (3.2-5.0); Alkaline Phosphatase 156 U/L (45-117); Anion Gap 2 (5-15); BUN 27 mg/dL (7-18); BUN/Creat Ratio 9.3 RATIO (10-20); Calcium,Total 7.5 mg/dL (8.5-10.1); Chloride 111 mmol/L (98-107); Creatinine, Serum 2.91 mg/dL (0.70-1.30); EST Glomerular Filtration Rate 24 mL/min (>60); Est Glom Filt Rate - Afr Amer 29 mL/min (>60); Estimated Creatinine Clearance 28.75 ml/min; Globulin 3.3 g/dL (2.2-4.2); Glucose 91 mg/dL (74-106); Potassium 4.3 mmol/L (3.5-5.1); Protein, Total 4.4 g/dL (6.4-8.2); Sodium Level 143 mmol/L (136-145)
--- NOTE | 2023-05-15 08:14 | PN.HOSP_ITS ---
Reason for Visit Reason for Visit: Diagnoses Sepsis, unspecified organism (05/09/23) Unspecified severe protein-calorie malnutrition (05/09/23) Alcohol abuse, uncomplicated (05/09/23) Alcohol dependence, uncomplicated (05/09/23) Alcohol use, unspecified with withdrawal, uncomplicated (05/09/23) Alcohol-induced chronic pancreatitis (05/09/23) Acute kidney failure, unspecified (05/09/23) Acute cystitis without hematuria (05/09/23) Patient's noncompliance with other medical treatment and regimen due to unspecified reason (05/09/23) Subjective Subjective Patient seen no improvement in clinical condition. Creatinine continues to worsen. Objective Data Objective Data Vital Signs: Vital Signs Temp Pulse Resp BP Pulse Ox O2 Del Method O2 Flow Rate 96.8 F L 60 18 117/78 98 Bi-pap 2 05/15/23 03:00 05/15/23 03:00 05/15/23 03:00 05/15/23 03:00 05/15/23 03:00 05/15/23 03:00 05/14/23 15:00 FiO2 25 05/15/23 03:00 Oxygen Flow Rate (L/min) 2 Oxygen Delivery Method Bi-pap Weight: 85.9 kg Body Mass Index (BMI) 26.4 Intake & Output: Intake and Output for Last 24 Hours 05/13/23 05/14/23 05/15/23 23:59 23:59 23:59 Intake Total 1470 / 1470 2242.5 / 2262.5 20 / 20 Output Total 1325 / 1325 1000 / 1700 700 / 700 Balance 145 / 145 1242.5 / 562.5 -680 / -680 Lab / Micro Data 05/15/23 06:20 05/15/23 06:20 Labs: Laboratory Results - last 24 hr 05/13/23 04:20: Diff Path Review Reviewed 05/14/23 07:28: Diff Path Review May foll, Reactive Lymphocytes RARE, Platelet Estimate MKD 05/14/23 11:55: POC Glucose 223 H 05/14/23 16:11: POC Glucose 157 H 05/14/23 21:27: POC Glucose 185 H 05/15/23 06:20: WBC 9.6, RBC 2.33 L, Hgb 8.0 L, Hct 24.7 L, MCV 106.0 H, MCH 34.3 H, MCHC 32.4, RDW Std Deviation 63.7 H, RDW Coeff of [place] 16.3 H, Plt Count 80 L, MPV 12.2 H, Immature Gran % (Auto) 1.900 H, Neut % (Auto) 76.8 H, Lymph % (Auto) 10.6 L, [place] % (Auto) 8.5, Eos % (Auto) 1.7, Baso % (Auto) 0.5, Absolute Neuts (auto) 7.3, Absolute Lymphs (auto) 1.01, Nucleated RBC % 0, Sodium 143, Potassium 4.3, Chloride 111 H, Carbon Dioxide 30.0, Anion Gap 2 L, BUN 27 H, Creatinine 2.91 H, Estim Creat Clear Calc 28.75, Est GFR (MDRD) Af Amer 29 L, Est GFR (MDRD) Non-Af 24 L, BUN/Creatinine Ratio 9.3 L, Glucose 91, Calcium 7.5 L, Total Bilirubin 0.40, AST 46 H, ALT 28, Alkaline Phosphatase 156 H, Total Protein 4.4 L, Albumin 1.1 L, Globulin 3.3, Albumin/Globulin Ratio 0.3 L 05/15/23 06:24: POC Glucose 88 Micro: Microbiology 05/10/23 17:30 Urine Catheter - Catheter Urine Culture - Final Escherichia coli 05/12/23 17:50 Stool Stool Occult Blood (IBIS) - Final Occult Blood Positive 05/10/23 12:40 Blood Culture (Wb) - Arm Left Blood Culture - Preliminary No growth in 48 hours. 05/10/23 10:35 Blood Culture (Wb) - Left Hand Blood Culture - Preliminary No growth in 48 hours. 05/09/23 21:31 Urine, Clean Catch Legionella Antigen - Final 05/09/23 21:31 Urine, Clean Catch Streptococcus pneumoniae Antigen (M - Final Rhythm Strip Rhythm Strip: Sinus Rhythm Physical Exam Narrative GENERAL: Ill looking, delirious HEENT: Atraumatic; normocephalic EYES; Anicteric, Normal Conjunctiva NECK; supple, normal thyroid, RESPIRATORY: Diminished to auscultation CARDIOVASCULAR: Regular S1 S2, GI: soft, normoactive bowel sounds, : No Renal angle tenderness; EXTREMITIES: edema, no clubbing, MUSCULOSKELETAL: no muscle wasting NEURO: Awake; no lateralizing signs. SKIN: No Rash PSYCH; Flat affect Assessment & Plan Assessment/Plan (1) Sepsis: PLAN: Plan Patient is a 62-year-old gentleman with multiple comorbidities admitted with acute alcohol withdrawal. Patient had recently been discharged from the hospital of right SNF placement which he refused. He was also found to be hypotensive with acute cystitis on admission. 1. Sepsis ? Secondary to acute cystitis as evidenced by the presence of an infection, SIRS criteria as well as evidence of endorgan dysfunction with acute kidney injury as well as hypotension. Sepsis protocol initiated ordered lactic acid level blood cultures patient already on Rocephin patient resuscitated with IV fluids per protocol transferred to the intensive care unit in guarded ordered for PICC line. If patient does not respond to fluid resuscitation plan will be to start patient on norepinephrine. Consult placed to ratchet setter ? 05/11/2023; patient remains in ICU did not require manage blood pressure remains soft ? 05/13/2023; patient blood pressure has stabilized 2. Chronic alcohol dependence with acute alcohol withdrawal ? Admitted to regular nursing floor managed with phenobarb taper.? Patient progressed being monitored with CIWA protocol ? 05/11/2023 patient remains on phenobarb taper ? 05/13/2023; phenobarb was discontinued given increasing lethargy ? 05/14/2023; patient is delirious this a.m. Phenobarb has been weaned off the day prior. 3. Acute kidney injury ? Patient started on IV fluids subsequent monitoring of electrolytes ordered ? 05/12/2023; patient kidney function continues to worsen will continue with IV fluids. Patient was on vancomycin and Zosyn vancomycin discontinued given worsening kidney ?05/13/2023 consult was placed to nephrology given worsening kidney function. Renal ultrasound obtained the day prior came back unremarkable ? 05/14/2023; kidney function continues to worsen continuous monitoring ordered ? 05/15/2023 kidney function continues to worsen. 4. Mild hyponatremia ? Secondary to chronic alcohol abuse monitoring 5. Coagulopathy ? Secondary to chronic liver disease from patient chronic alcohol use 6. Acute transaminitis ? Monitoring 7.? Diabetes mellitus type II -Continue patient on his home regimen in addition to Accu-Cheks before meals and at bedtime with sliding scale coverage 8.? Sick sinus syndrome ? Status post pacemaker placement 9.? History of ascending aortic dissection ? Status post repair 10.? Valvular heart disease - history of aortic valve replacement with bioprosthetic material 11.? Hypertension - Blood pressure low on admission antihypertensives held 12. Dyslipidemia -Patient is on statin therapy, continued at home dose 13. GERD ? On famotidine 14. Thrombocytopenia ? Patient has had a precipitous drop in his platelet count. No bleeding at this point we will continue to monitor 05/14/2023 platelet count trending up we will continue with monitoring 15. Anemia ? Suspected to be secondary to anemia of chronic disorder monitoring H&H with plans to transfuse if patient becomes symptomatic or hemoglobin falls below 7 16. DVT prophylaxis ? SCDs only given that patient coagulopathic 17. Physical deconditioning - Requested for PT OT eval and executive secretary social welfare to assist with discharge planning Time spent in the patient's overall evaluation,decision-making process, review of diagnostic data, adjustment of management, discussion with other providers, nursing nursing and ancillary staff involved in patient's care documentation, 35 Minutes Charges/Coding Visit Charges Inpatient E&M: 74817 Subs Hosp L2
--- NOTE | 2023-05-15 08:19 | EKG12_ITS ---
Test Reason : Blood Pressure : / mmHG Vent. Rate : 068 BPM Atrial Rate : 068 BPM P-R Int : 176 ms QRS Dur : 122 ms QT Int : 412 ms P-R-T Axes : 041 032 060 degrees QTc Int : 438 ms Atrial-sensed ventricular-paced rhythm with frequent Premature ventricular complexes Abnormal ECG Confirmed by Denys Pearson ([id number]), newspaper photo editor DELROY ONEAL ([id number]) on 05/17/2023 1:16:38 PM Referred By: TONY Confirmed By:Denys Pearson
[2023-05-15] MEDS: Metoprolol(XL)Succ 25 MG Tablet PO ×2 (11:17→20:58)
[2023-05-15] MEDS: Multivitamins,Therapeutic Tablet 1 TABLET PO (11:17)
[2023-05-15] MEDS: Lactobacillis Acidophilus 2 CAP PO ×2 (11:18→20:58)
[2023-05-15] MEDS: Folic Acid 1 MG Tablet PO (11:18)
[2023-05-15] MEDS: Menthol/Lanolin/Calamine/Znox 113 GM Tube 1 APPLIC TOPICAL ×2 (11:18→20:56)
[2023-05-15] MEDS: Potassium Chloride Oral Tablet 20 MEQ PO (11:18)
[2023-05-15] MEDS: Thiamine Hydrochloride 100 MG Tablet PO (11:18)
[2023-05-15] MEDS: Gabapentin 300 MG Capsule PO (11:23)
[2023-05-15] MEDS: Pantoprazole Sodium 40 MG in 0.9% Normal Saline (100mL MB+) 100 ML 330 MG IV ×2 (11:24→20:58)
[2023-05-15 12:01] LABS: Bedside Glucose 96 mg/dL (74-106)
[2023-05-15 13:31] LABS: Magnesium 2.5 mg/dL (1.6-2.6)
--- NOTE | 2023-05-15 13:35 | CASEMGMT ---
Addendum entered by Corina Ponce 05/15/23 13:59: Social Work Referral sent to [facility] via [facility]. KARAN Weston Original Note: Social Work SW spoke w/pt's daughter Terra today, she called SW back. SW checked to make sure pt's father is okay at home, as pt had indicated to RN he cares for his father and was worried about his well being. As per Terra, they have a lot of family in the area and there is family checking on pt's father daily. SW then spoke about discharge plan. SW explained pt is not moving well and will likely need placement in a [facility] facility. She states they discussed this on the last admission and the SW had emailed her a list, pt then went home. SW explained the list would be the same, asked her if she had any ideas on where she would like a referral sent. Pt's daughter agreeable to a referral to [facility]. SW asked her to review the list again for additional choices and let SW know on Wednesday. SW email the SNF list to daughter again from [facility], of facilities in pt's preferred geographic area, insurance network, and complete w/quality and resource use data. Terra will review the list and put in choices, which should get emailed back to the SW who is here WednesdayAshley. Daughter is okay w/SW leaving her messages in regard to where pt does end up going for rehab, as she is in clinicals every day this week M-T from 8am-6pm. SW will start referral to [facility] today, will continue to follow. KARAN Weston
[2023-05-15] MEDS: Insulin Lispro 100 UNIT/ML INSULN.PEN SC ×2 (16:09→20:57)
[2023-05-15] MEDS: 0.9% Normal Saline (1000mL) 1,000 ML 50 ML IV (16:16)
[2023-05-15 16:30] LABS: Bedside Glucose 162 mg/dL (74-106)
--- NOTE | 2023-05-15 17:35 | PN.RENAL_ITS ---
Subjective Subjective Following for acute kidney injury. The patient denies current chest pain, shortness of breath, or nausea. He is hard of hearing. Objective Data Objective Data Vital Signs: Vital Signs Temp Pulse Resp BP Pulse Ox O2 Del Method O2 Flow Rate 98.1 F 65 18 127/87 H 98 Nasal Cannula 2 05/15/23 16:00 05/15/23 16:00 05/15/23 16:00 05/15/23 16:00 05/15/23 16:00 05/15/23 16:00 05/15/23 16:00 FiO2 25 05/15/23 11:10 Oxygen Flow Rate (L/min) 2 Oxygen Delivery Method Nasal Cannula Weight: 85.9 kg Body Mass Index (BMI) 26.4 Intake & Output: Intake and Output for Last 24 Hours 05/13/23 05/14/23 05/15/23 23:59 23:59 23:59 Intake Total 1470 / 1470 2242.5 / 2262.5 1272.50 / 1272.50 Output Total 1325 / 1325 1000 / 1700 1100 / 1100 Balance 145 / 145 1242.5 / 562.5 172.50 / 172.50 Lab / Micro Data 05/15/23 06:20 05/15/23 06:20 Labs: Laboratory Results - last 24 hr 05/14/23 21:27: POC Glucose 185 H 05/15/23 06:20: WBC 9.6, RBC 2.33 L, Hgb 8.0 L, Hct 24.7 L, MCV 106.0 H, MCH 34.3 H, MCHC 32.4, RDW Std Deviation 63.7 H, RDW Coeff of Kalpana 16.3 H, Plt Count 80 L, MPV 12.2 H, Immature Gran % (Auto) 1.900 H, Neut % (Auto) 76.8 H, Lymph % (Auto) 10.6 L, Mcnairy % (Auto) 8.5, Eos % (Auto) 1.7, Baso % (Auto) 0.5, Absolute Neuts (auto) 7.3, Absolute Lymphs (auto) 1.01, Nucleated RBC % 0, Sodium 143, Potassium 4.3, Chloride 111 H, Carbon Dioxide 30.0, Anion Gap 2 L, BUN 27 H, Creatinine 2.91 H, Estim Creat Clear Calc 28.75, Est GFR (MDRD) Af Amer 29 L, Est GFR (MDRD) Non-Af 24 L, BUN/Creatinine Ratio 9.3 L, Glucose 91, Calcium 7.5 L, Magnesium 2.5, Total Bilirubin 0.40, AST 46 H, ALT 28, Alkaline Phosphatase 156 H, Total Protein 4.4 L, Albumin 1.1 L, Globulin 3.3, Albumin/Globulin Ratio 0.3 L 05/15/23 06:24: POC Glucose 88 05/15/23 11:28: POC Glucose 96 05/15/23 16:08: POC Glucose 162 H Micro: Microbiology 05/10/23 12:40 Blood Culture (Wb) - Arm Left Blood Culture - Final No growth in 5 days. 05/10/23 10:35 Blood Culture (Wb) - Left Hand Blood Culture - Final No growth in 5 days. 05/10/23 17:30 Urine Catheter - Catheter Urine Culture - Final Escherichia coli 05/12/23 17:50 Stool Stool Occult Blood (IBIS) - Final Occult Blood Positive 05/09/23 21:31 Urine, Clean Catch Legionella Antigen - Final 05/09/23 21:31 Urine, Clean Catch Streptococcus pneumoniae Antigen (M - Fi nal Rhythm Strip Rhythm Strip: Sinus Rhythm Physical Exam Narrative Alert to name, no apparent distress. Hard of hearing S1, S2, RRR Lungs clear anteriorly. No wheezes, rhonchi rales Abdomen soft, positive bowel sound Trace edema bilateral lower arms and hands. 1+ pitting edema bilateral lower legs Indwelling Gillis with clear urine in bag GI Palpation: ascites Neuro Sensorium / Orientation: awake Psych cooperative Assessment & Plan Assessment/Plan (1) MALIK (acute kidney injury): (2) HTN (hypertension): PLAN: Plan Impression/Plan: The patient is a 62-year-old man with past history of type 2 diabetes mellitus, hypertension, CAD, aortic valve replacement, sick sinus syndrome status post PPM, polysubstance use disorder, and hyperlipidemia. The patient presents to the hospital on 05/09/2023 with abdominal pain. The patient was diagnosed with alcohol withdrawal and severe sepsis attributed to right lower lobe pneumonia. Nephrology is following for acute kidney injury. Acute kidney injury. The patient does not have any history of chronic kidney disease. Baseline serum creatinine has been around 1.00 mg/dL (November 2022). Serum creatinine was 1.50 mg/dL on presentation on 05/09/2023 and peaked at 2.93 mg/dL on 05/14/2023. MALIK secondary to ischemic ATN related to sepsis. Serum creatinine has plateaued and is 2.91 mg/dL today. We should continue to see stability of renal function since patient is hemodynamically stable today. Continue to hold ramipril and hydrochlorothiazide. Continue current supportive care, keeping MAP above 65 mmHg. There is no need for kidney replacement therapy. Continue to encourage oral intake. Recheck renal function, volume status, acid-base, and electrolytes tomorrow. Hypertension. BP is reasonably controlled off of ramipril and hydrochlorothiazide. These medications are on hold because of MALIK. He remains on metoprolol succinate. Continue to hold ramipril and hydrochlorothiazide for now.
--- NOTE | 2023-05-15 18:35 | EKG12_ITS ---
Test Reason : RHYTHM CHANGE Blood Pressure : / mmHG Vent. Rate : 070 BPM Atrial Rate : 070 BPM P-R Int : 168 ms QRS Dur : 118 ms QT Int : 408 ms P-R-T Axes : -21 -09 044 degrees QTc Int : 440 ms Atrial-sensed ventricular-paced rhythm with frequent Premature ventricular complexes Abnormal ECG Confirmed by Denys Pearson ([id number]), assignment desk editor DELROY ONEAL ([id number]) on 05/17/2023 1:15:11 PM Referred By: Confirmed By:Denys Pearson
[2023-05-15] MEDS: Cefdinir 300 MG Capsule PO (20:58)
[2023-05-15 21:21] LABS: Bedside Glucose 170 mg/dL (74-106)
[2023-05-16] VITALS (7 sets, daily range): BP systolic 126–138; BP diastolic 80–97; PULSE 65–81; RESP 16; TEMP 36.4–36.6; O2SAT 93–99; BMI 26.4
[2023-05-16] MEDS: Nystatin Powder 15gm Bottle 1 APPLIC TOPICAL ×3 (05:11→19:51)
[2023-05-16 06:34] LABS: Bedside Glucose 119 mg/dL (74-106)
--- NOTE | 2023-05-16 08:05 | PN.HOSP_ITS ---
Reason for Visit Reason for Visit: Diagnoses Sepsis, unspecified organism (05/09/23) Unspecified severe protein-calorie malnutrition (05/09/23) Alcohol abuse, uncomplicated (05/09/23) Alcohol dependence, uncomplicated (05/09/23) Alcohol use, unspecified with withdrawal, uncomplicated (05/09/23) Essential (primary) hypertension (05/09/23) Alcohol-induced chronic pancreatitis (05/09/23) Acute kidney failure, unspecified (05/09/23) Acute cystitis without hematuria (05/09/23) Patient's noncompliance with other medical treatment and regimen due to unspecified reason (05/09/23) Subjective Subjective Patient seen markedly swollen. Hemoglobin down to 7.2 did undertake iron studies. Kidney function appears to be stable. Patient was administered with 80 mg of IV Lasix Objective Data Objective Data Vital Signs: Vital Signs Temp Pulse Resp BP Pulse Ox O2 Del Method O2 Flow Rate 97.6 F L 71 16 133/80 H 93 Nasal Cannula 2 05/16/23 03:00 05/16/23 03:00 05/16/23 03:00 05/16/23 03:00 05/16/23 07:24 05/16/23 07:24 05/16/23 07:24 FiO2 25 05/15/23 11:10 Oxygen Flow Rate (L/min) 2 Oxygen Delivery Method Nasal Cannula Weight: 86.1 kg Body Mass Index (BMI) 26.4 Intake & Output: Intake and Output for Last 24 Hours 05/14/23 05/15/23 05/16/23 23:59 23:59 23:59 Intake Total 2242.5 / 2262.5 2224.17 / 2664.17 440 / 440 Output Total 1000 / 1700 1475 / 1925 950 / 950 Balance 1242.5 / 562.5 749.17 / 739.17 -510 / -510 Lab / Micro Data 05/16/23 08:35 05/16/23 08:35 Labs: Laboratory Results - last 24 hr 05/15/23 06:20: Magnesium 2.5 05/15/23 11:28: POC Glucose 96 05/15/23 16:08: POC Glucose 162 H 05/15/23 20:52: POC Glucose 170 H 05/16/23 06:16: POC Glucose 119 H Micro: Microbiology 05/10/23 12:40 Blood Culture (Wb) - Arm Left Blood Culture - Final No growth in 5 days. 05/10/23 10:35 Blood Culture (Wb) - Left Hand Blood Culture - Final No growth in 5 days. 05/10/23 17:30 Urine Catheter - Catheter Urine Culture - Final Escherichia coli 05/12/23 17:50 Stool Stool Occult Blood (IBIS) - Final Occult Blood Positive 05/09/23 21:31 Urine, Clean Catch Legionella Antigen - Final 05/09/23 21:31 Urine, Clean Catch Streptococcus pneumoniae Antigen (M - Final Rhythm Strip Rhythm Strip: Sinus Rhythm Physical Exam Narrative GENERAL: Ill looking, delirious HEENT: Atraumatic; normocephalic EYES; Anicteric, Normal Conjunctiva NECK; supple, normal thyroid, RESPIRATORY: Diminished to auscultation CARDIOVASCULAR: Regular S1 S2, GI: soft, normoactive bowel sounds, : No Renal angle tenderness; EXTREMITIES: edema of all 4 extremities MUSCULOSKELETAL: no muscle wasting NEURO: Awake; no lateralizing signs. SKIN: No Rash PSYCH; Flat affect Assessment & Plan Assessment/Plan (1) Sepsis: PLAN: Plan Patient is a 62-year-old gentleman with multiple comorbidities admitted with acute alcohol withdrawal. Patient had recently been discharged from the hospital of right SNF placement which he refused. He was also found to be h ypotensive with acute cystitis on admission. 1. Sepsis ? Secondary to acute cystitis as evidenced by the presence of an infection, SIRS criteria as well as evidence of endorgan dysfunction with acute kidney injury as well as hypotension. Sepsis protocol initiated ordered lactic acid level blood cultures patient already on Rocephin patient resuscitated with IV fluids per protocol transferred to the intensive care unit in guarded ordered for PICC line. If patient does not respond to fluid resuscitation plan will be to start patient on norepinephrine. Consult placed to glass lathe operator ? 05/11/2023; patient remains in ICU did not require manage blood pressure remains soft ? 05/13/2023; patient blood pressure has stabilized 2. Chronic alcohol dependence with acute alcohol withdrawal ? Admitted to regular nursing floor managed with phenobarb taper.? Patient progressed being monitored with CIWA protocol ? 05/11/2023 patient remains on phenobarb taper ? 05/13/2023; phenobarb was discontinued given increasing lethargy ? 05/14/2023; patient is delirious this a.m. Phenobarb has been weaned off the da y prior. 3. Acute kidney injury ? Patient started on IV fluids subsequent monitoring of electrolytes ordered ? 05/12/2023; patient kidney function continues to worsen will continue with IV fluids. Patient was on vancomycin and Zosyn vancomycin discontinued given worsening kidney ?05/13/2023 consult was placed to nephrology given worsening kidney function. Renal ultrasound obtained the day prior came back unremarkable ? 05/14/2023; kidney function continues to worsen continuous monitoring ordered ? 05/15/2023 kidney function continues to worsen. ? 05/16/2023 patient kidney function appears to be stable at this point 4. Mild hyponatremia ? Secondary to chronic alcohol abuse monitoring 5. Coagulopathy ? Secondary to chronic liver disease from patient chronic alcohol use 6. Acute transaminitis ? Monitoring 7.? Diabetes mellitus type II -Continue patient on his home regimen in addition to Accu-Cheks before meals and at bedtime with sliding scale coverage 8.? Sick sinus syndrome ? Status post pacemaker placement 9.? History of ascending aortic dissection ? Status post repair 10.? Valvular heart disease - history of aortic valve replacement with bioprosthetic material 11.? Hypertension - Blood pressure low on admission antihypertensives held 12. Dyslipidemia -Patient is on statin therapy, continued at home dose 13. GERD ? On famotidine 14. Thrombocytopenia ? Patient has had a precipitous drop in his platelet count. No bleeding at this point we will continue to monitor 05/14/2023 platelet count trending up we will continue with monitoring 15. Anemia ? Suspected to be secondary to anemia of chronic disorder monitoring H&H with plans to transfuse if patient becomes symptomatic or hemoglobin falls below 7 16. DVT prophylaxis ? SCDs only given that patient coagulopathic 17. Physical deconditioning - Requested for PT OT eval and social sciences professor to assist with discharge planning 18. Anasarca ? Suspected to be secondary to hypoalbuminemia given patient chronic liver disease. Patient did receive IV Lasix 80 mg x 1 Time spent in the patient's overall evaluation,decision-making process, review of diagnostic data, adjustment of management, discussion with other providers, nursing nursing and ancillary staff involved in patient's care documentation, 35 Minutes Charges/Coding Visit Charges Inpatient E&M: 94240 Subs Hosp L2
[2023-05-16 08:51] LABS: Absolute Lymphocyte Count 0.84 X10^3/uL (0.83-4.51); Basophil# 0.04 X10^3/uL; Basophil% 0.4 % (0-1); Eosinophil# 0.12 X10^3/uL; Eosinophils% 1.2 % (0-5); Hematocrit 21.9 % (40-54); Hemoglobin 7.2 g/dL (13.0-16.5); Lymphocyte # 0.84 X10^3/ul (0.83-4.51); Lymphocyte % 8.7 % (19-41); Mean Corp Hgb Conc 32.9 g/dL (32-36); Mean Corpuscular Hgb 35.3 pg (27.0-32.0); Mean Corpuscular Volume 107.4 fL (80-94); Mean Platelet Vol. 12.2 fl (6.2-12.0); Monocyte# 0.53 X10^3/uL; Monocyte% 5.5 % (0-10); NRBC Flagged by Analyzer 0 % (0-5); Neutrophil # 7.95 X10^3/uL (2.7-7.7); Neutrophil % 82.3 % (47-70); Platelet Count 108 K/mm3 (150-450); RBC Distribution Width CV 16.1 % (11.6-14.6); RBC Distribution Width SD 63.7 fl (35.1-43.9); Red Blood Count 2.04 M/mm3 (4.6-6.2); White Blood Count 9.7 K/mm3 (4.4-11.0)
[2023-05-16 09:14] LABS: ALB/GLOB Ratio 0.3 RATIO (0.9-2.4); AST(SGOT) 41 U/L (15-37); Alanine Aminotransfer ALT/SGPT 25 U/L (16-61); Alkaline Phosphatase 152 U/L (45-117); Anion Gap 4 (5-15); BUN 26 mg/dL (7-18); BUN/Creat Ratio 9.3 RATIO (10-20); Calcium,Total 7.4 mg/dL (8.5-10.1); Chloride 113 mmol/L (98-107); Creatinine, Serum 2.79 mg/dL (0.70-1.30); EST Glomerular Filtration Rate 25 mL/min (>60); Est Glom Filt Rate - Afr Amer 30 mL/min (>60); Estimated Creatinine Clearance 29.99 ml/min; Globulin 3.6 g/dL (2.2-4.2); Glucose 117 mg/dL (74-106); Magnesium 2.2 mg/dL (1.6-2.6); Potassium 4.9 mmol/L (3.5-5.1); Protein, Total 4.6 g/dL (6.4-8.2); Sodium Level 143 mmol/L (136-145)
[2023-05-16] MEDS: Insulin Lispro 100 UNIT/ML INSULN.PEN SC ×3 (11:16→20:56)
[2023-05-16] MEDS: Metoprolol(XL)Succ 25 MG Tablet PO ×2 (11:17→19:46)
[2023-05-16] MEDS: Folic Acid 1 MG Tablet PO (11:17)
[2023-05-16] MEDS: Potassium Chloride Oral Tablet 20 MEQ PO (11:17)
[2023-05-16] MEDS: Multivitamins,Therapeutic Tablet 1 TABLET PO (11:17)
[2023-05-16] MEDS: Thiamine Hydrochloride 100 MG Tablet PO (11:17)
[2023-05-16] MEDS: Lactobacillis Acidophilus 2 CAP PO ×2 (11:17→19:46)
[2023-05-16] MEDS: Menthol/Lanolin/Calamine/Znox 113 GM Tube 1 APPLIC TOPICAL ×2 (11:18→19:51)
[2023-05-16] MEDS: Furosemide 100 MG/10 ML Vial 80 MG IV (11:28)
[2023-05-16] MEDS: Gabapentin 300 MG Capsule PO (11:28)
[2023-05-16 11:39] LABS: Bedside Glucose 193 mg/dL (74-106)
[2023-05-16] MEDS: Pantoprazole Sodium 40 MG in 0.9% Normal Saline (100mL MB+) 100 ML 330 MG IV ×2 (11:40→20:56)
[2023-05-16] MEDS: 0.9% Normal Saline (1000mL) 1,000 ML 50 ML IV (11:40)
[2023-05-16] MEDS: Albumin Human 25% (100 mL) 25 GM/100 ML BAG IV (16:58)
[2023-05-16 17:26] LABS: Bedside Glucose 185 mg/dL (74-106)
[2023-05-16] MEDS: Cefdinir 300 MG Capsule PO (19:46)
--- NOTE | 2023-05-16 19:52 | NURSING ---
Pt requesting to have meds now because he is tired.
[2023-05-16 21:16] LABS: Bedside Glucose 272 mg/dL (74-106)
[2023-05-17] VITALS (8 sets, daily range): BP systolic 124–143; BP diastolic 85–100; PULSE 68–87; RESP 16–20; TEMP 36.4–36.6; O2SAT 92–99; BMI 26.0
[2023-05-17] MEDS: Nystatin Powder 15gm Bottle 1 APPLIC TOPICAL ×3 (03:31→20:37)
[2023-05-17 06:37] LABS: Absolute Lymphocyte Count 1.06 X10^3/uL (0.83-4.51); Absolute Neutrophil Count 10.2 X10^3/uL (2.0-7.7); Basophil# 0.06 X10^3/uL; Basophil% 0.5 % (0-1); Eosinophil# 0.14 X10^3/uL; Eosinophils% 1.1 % (0-5); Hematocrit 22.1 % (40-54); Hemoglobin 7.2 g/dL (13.0-16.5); Lymphocyte # 1.06 X10^3/ul (0.83-4.51); Lymphocyte % 8.6 % (19-41); Mean Corp Hgb Conc 32.6 g/dL (32-36); Mean Corpuscular Volume 107.3 fL (80-94); Mean Platelet Vol. 11.6 fl (6.2-12.0); Monocyte# 0.57 X10^3/uL; Monocyte% 4.6 % (0-10); NRBC Flagged by Analyzer 0 % (0-5); Neutrophil # 10.23 X10^3/uL (2.7-7.7); Neutrophil % 83.3 % (47-70); Platelet Count 175 K/mm3 (150-450); RBC Distribution Width SD 62.1 fl (35.1-43.9); Red Blood Count 2.06 M/mm3 (4.6-6.2); White Blood Count 12.3 K/mm3 (4.4-11.0)
[2023-05-17 07:14] LABS: Anion Gap 3 (5-15); BUN 23 mg/dL (7-18); BUN/Creat Ratio 8.8 RATIO (10-20); Calcium,Total 7.9 mg/dL (8.5-10.1); Chloride 109 mmol/L (98-107); Creatinine, Serum 2.61 mg/dL (0.70-1.30); EST Glomerular Filtration Rate 27 mL/min (>60); Est Glom Filt Rate - Afr Amer 32 mL/min (>60); Estimated Creatinine Clearance 32.06 ml/min; Ferritin 419 ng/mL (26-388); Glucose 128 mg/dL (74-106); Iron 28 ug/dL (65-175); Iron Binding Capacity,Total 45 ug/dL (250-450); PERCENT IRON SATURATION 62.2 % (15.0-55.0); Phosphorus 2.9 mg/dL (2.5-4.9); Potassium 4.6 mmol/L (3.5-5.1); Sodium Level 141 mmol/L (136-145)
[2023-05-17 07:21] LABS: Bedside Glucose 126 mg/dL (74-106)
--- NOTE | 2023-05-17 07:45 | PN.HOSP_ITS ---
Reason for Visit Reason for Visit: Diagnoses Sepsis, unspecified organism (05/09/23) Unspecified severe protein-calorie malnutrition (05/09/23) Alcohol abuse, uncomplicated (05/09/23) Alcohol dependence, uncomplicated (05/09/23) Alcohol use, unspecified with withdrawal, uncomplicated (05/09/23) Essential (primary) hypertension (05/09/23) Alcohol-induced chronic pancreatitis (05/09/23) Acute kidney failure, unspecified (05/09/23) Acute cystitis without hematuria (05/09/23) Patient's noncompliance with other medical treatment and regimen due to unspecified reason (05/09/23) Objective Data Objective Data Vital Signs: Vital Signs Temp Pulse Resp BP Pulse Ox O2 Del Method O2 Flow Rate 97.8 F 72 18 142/92 H 97 Nasal Cannula 2 05/17/23 02:50 05/17/23 02:50 05/17/23 02:50 05/17/23 02:50 05/17/23 02:50 05/17/23 02:50 05/17/23 02:50 FiO2 25 05/15/23 11:10 Oxygen Flow Rate (L/min) 2 Oxygen Delivery Method Nasal Cannula Weight: 186 lb 15.232 oz Body Mass Index (BMI) 26.0 Intake & Output: Intake and Output for Last 24 Hours 05/15/23 05/16/23 05/17/23 23:59 23:59 23:59 Intake Total 2224.17 / 2664.17 2782.50 / 2782.50 200 / 200 Output Total 1475 / 1925 3200 / 4500 2200 / 2200 Balance 749.17 / 739.17 -417.50 / -1717.50 -2000 / -1999 Lab / Micro Data 05/17/23 06:15 05/17/23 06:15 Labs: Laboratory Results - last 24 hr 05/16/23 08:35: WBC 9.7, RBC 2.04 L, Hgb 7.2 L, Hct 21.9 L, MCV 107.4 H, MCH 35.3 H, MCHC 32.9, RDW Std Deviation 63.7 H, RDW Coeff of Kalpana 16.1 H, Plt Count 108 L, MPV 12.2 H, Immature Gran % (Auto) 1.900 H, Neut % (Auto) 82.3 H, Lymph % (Auto) 8.7 L, Archer % (Auto) 5.5, Eos % (Auto) 1.2, Baso % (Auto) 0.4, Absolute Neuts (auto) 8.0 H, Absolute Lymphs (auto) 0.84, Nucleated RBC % 0, Sodium 143, Potassium 4.9, Chloride 113 H, Carbon Dioxide 26.0, Anion Gap 4 L, BUN 26 H, Cr eatinine 2.79 H, Estim Creat Clear Calc 29.99, Est GFR (MDRD) Af Amer 30 L, Est GFR (MDRD) Non-Af 25 L, BUN/Creatinine Ratio 9.3 L, Glucose 117 H, Calcium 7.4 L , Magnesium 2.2, Total Bilirubin 0.40, AST 41 H, ALT 25, Alkaline Phosphatase 152 H, Total Protein 4.6 L, Albumin 1.0 L, Globulin 3.6, Albumin/Globulin Ratio 0.3 L 05/16/23 11:05: POC Glucose 193 H 05/16/23 17:02: POC Glucose 185 H 05/16/23 20:55: POC Glucose 272 H 05/17/23 06:15: WBC 12.3 H, RBC 2.06 L, Hgb 7.2 L, Hct 22.1 L, MCV 107.3 H, MCH 35.0 H, MCHC 32.6, RDW Std Deviation 62.1 H, RDW Coeff of Kalpana 16.0 H, Plt Count 175, MPV 11.6, Immature Gran % (Auto) 1.900 H, Neut % (Auto) 83.3 H, Lymph % (Auto) 8.6 L, Archer % (Auto) 4.6, Eos % (Auto) 1.1, Baso % (Auto) 0.5, Absolute Neuts (auto) 10.2 H, Absolute Lymphs (auto) 1.06, Nucleated RBC % 0, Sodium 141, Potassium 4.6, Chloride 109 H, Carbon Dioxide 29.0, Anion Gap 3 L, BUN 23 H, Creatinine 2.61 H, Estim Creat Clear Calc 32.06, Est GFR (MDRD) Af Amer 32 L, Est GFR (MDRD) Non-Af 27 L, BUN/Creatinine Ratio 8.8 L, Glucose 128 H, Calcium 7.9 L, Phosphorus 2.9, Iron 28 L, TIBC 45 L, Iron Saturation 62.2 H, Ferritin 419 H 05/17/23 06:27: POC Glucose 126 H Micro: Microbiology 05/16/23 12:35 Stool Stool Occult Blood (IBIS) - Final Occult Blood Positive 05/10/23 12:40 Blood Culture (Wb) - Arm Left Blood Culture - Final No growth in 5 days. 05/10/23 10:35 Blood Culture (Wb) - Left Hand Blood Culture - Final No growth in 5 days. 05/10/23 17:30 Urine Catheter - Catheter Urine Culture - Final Escherichia coli 05/12/23 17:50 Stool Stool Occult Blood (IBIS) - Final Occult Blood Positive 05/09/23 21:31 Urine, Clean Catch Legionella Antigen - Final 05/09/23 21:31 Urine, Clean Catch Streptococcus pneumoniae Antigen (M - Final Rhythm Strip Rhythm Strip: Sinus Rhythm Physical Exam Narrative Seen and examined. No acute issues overnight but patient feels very weak. Physical exam: General: Alert, Oriented x3, Cooperative HEENT: Atraumatic, PERRLA, EOMI, Normocephalic Oral: Oral mucosa dry. No Gingival or Mucosal Lesions/ Ulcerations Neck: Supple, No JVD, Negative Carotid Bruits Chest wall/Lungs: Air entry diminished in bilateral lung bases. No crepita tion/rhonchi Cardiovascular: Paced rhythm. Mechanical valve click. Systolic murmur. Normal S1, Normal S2 Abdomen: Bowel Sounds Present, Soft, Non Tender, Non-Distended : No dysuria. No renal angle tenderness. No suprapubic tenderness. Extremities: Bilateral lower extremity and upper extremity subcutaneous edema. Capillary Refill Less than 3 Seconds Skin: No rashes, No breakdown Musculoskeletal: No Tenderness to Palpation of Joints or Extremities. ROM restricted muscle strength 4/5 and both knees and hip joints Neurological: Cranial nerves II-XII grossly intact, DTR 2+/4. No acute focal neurological deficit. Psych/Mental Status: Flat affect. Assessment & Plan Assessment/Plan (1) Sepsis: PLAN: Plan Patient is a 62-year-old gentleman with multiple comorbidities admitted with acute alcohol withdrawal. Patient had recently been discharged from the hospital To father's home after he refused to SNF . He was also found to be hypotensive with acute cystitis on admission. 1. Sepsis ? Secondary to acute cystitis as evidenced by the presence of an infection, SIRS criteria as well as evidence of endorgan dysfunction with acute kidney injury as well as hypotension. Sepsis protocol initiated ordered lactic acid level blood cultures patient already on Rocephin patient resuscitated with IV fluids per protocol transferred to the intensive care unit in guarded ordered for PICC lamar e. If patient does not respond to fluid resuscitation plan will be to start patient on norepinephrine. Consult placed to spooling supervisor 05/16: Sepsis has resolved. 2. Chronic alcohol dependence with acute alcohol withdrawal ? Admitted to regular nursing floor managed with phenobarb taper.? Patient pr ogressed being monitored with CIWA protocol 05/16: Earlier phenobarbital discontinued as patient was getting lethargic and delirious. 3. Acute kidney injury ? Patient started on IV fluids subsequent monitoring of electrolytes ordered ? 05/12/2023; patient kidney function continues to worsen will continue with IV fluids. Patient was on vancomycin and Zosyn vancomycin discontinued given worsening kidney ?05/13/2023 consult was placed to nephrology given worsening kidney function. Renal ultrasound obtained the day prior came back unremarkable ? 05/14/2023; kidney function continues to worsen continuous monitoring ordered ? 05/15/2023 kidney function continues to worsen. ? 05/16/2023 patient kidney function appears to be stable at this point 05/16: Creatinine during the hospital stay increased from 1.5-2.93 and then stabilizing at 2.61. 4. Mild hyponatremia ? Secondary to chronic alcohol abuse monitoring /Had sodium corrected to 148. 5. Coagulopathy ? Secondary to chronic liver disease from patient chronic alcohol use 6. Acute transaminitis ? Monitoring 7.? Diabetes mellitus type II -Continue patient on his home regimen in addition to Accu-Cheks before meals and at bedtime with sliding scale coverage 8.? Sick sinus syndrome ? Status post pacemaker placement 9.? History of ascending aortic dissection ? Status post repair 10.? Valvular heart disease - history of aortic valve replacement with bioprosthetic material 11.? Hypertension - Blood pressure low on admission antihypertensives held 12. Dyslipidemia -Patient is on statin therapy, continued at home dose 13. GERD ? On famotidine 14. Thrombocytopenia ? Patient has had a precipitous drop in his platelet count. No bleeding at this point we will continue to monitor 05/14/2023 platelet count trending up we will continue with monitoring 15. Anemia ? Suspected to be secondary to anemia of chronic disorder monitoring H&H with plans to transfuse if patient becomes symptomatic or hemoglobin falls below 7 16. DVT prophylaxis ? SCDs only given that patient coagulopathic 17. Physical deconditioning - Requested for PT OT eval and case management social worker to assist with discharge planning 18. Anasarca ? Suspected to be secondary to hypoalbuminemia given patient chronic liver disease. Patient did receive IV Lasix 80 mg x 1 Charges/Coding Visit Charges Inpatient E&M: 57607 Subs Hosp L2
[2023-05-17] MEDS: Lactobacillis Acidophilus 2 CAP PO ×2 (08:05→20:37)
[2023-05-17] MEDS: Multivitamins,Therapeutic Tablet 1 TABLET PO (08:05)
[2023-05-17] MEDS: Gabapentin 300 MG Capsule PO (08:05)
[2023-05-17] MEDS: Folic Acid 1 MG Tablet PO (08:05)
[2023-05-17] MEDS: Potassium Chloride Oral Tablet 20 MEQ PO (08:05)
[2023-05-17] MEDS: Thiamine Hydrochloride 100 MG Tablet PO (08:06)
[2023-05-17] MEDS: Metoprolol(XL)Succ 25 MG Tablet PO ×2 (08:06→20:39)
[2023-05-17 08:29] LABS: Vitamin B12 > 2000 pg/mL (211-911)
--- NOTE | 2023-05-17 09:59 | PN.RENAL_ITS ---
Subjective Subjective Following for MALIK Patient resting in bed. Alert. No overnight events. Objective Data Objective Data Vital Signs: Vital Signs Temp Pulse Resp BP Pulse Ox O2 Del Method O2 Flow Rate 97.6 F L 68 20 H 138/85 H 92 Nasal Cannula 2 05/17/23 07:45 05/17/23 08:06 05/17/23 07:45 05/17/23 07:45 05/17/23 08:18 05/17/23 08:18 05/17/23 08:18 FiO2 25 05/15/23 11:10 Oxygen Flow Rate (L/min) 2 Oxygen Delivery Method Nasal Cannula Weight: 84.8 kg Body Mass Index (BMI) 26.0 Intake & Output: Intake and Output for Last 24 Hours 05/15/23 05/16/23 05/17/23 23:59 23:59 23:59 Intake Total 2224.17 / 2664.17 2782.50 / 2782.50 200 / 200 Output Total 1475 / 1925 3200 / 4500 2200 / 2200 Balance 749.17 / 739.17 -417.50 / -1717.50 -1999 / -1999 Lab / Micro Data 05/17/23 06:15 05/17/23 06:15 Labs: Laboratory Results - last 24 hr 05/16/23 11:05: POC Glucose 193 H 05/16/23 17:02: POC Glucose 185 H 05/16/23 20:55: POC Glucose 272 H 05/17/23 06:15: WBC 12.3 H, RBC 2.06 L, Hgb 7.2 L, Hct 22.1 L, MCV 107.3 H, MCH 35.0 H, MCHC 32.6, RDW Std Deviation 62.1 H, RDW Coeff of Kalpana 16.0 H, Plt Count 175, MPV 11.6, Immature Gran % (Auto) 1.900 H, Neut % (Auto) 83.3 H, Lymph % (Auto) 8.6 L, [place] % (Auto) 4.6, Eos % (Auto) 1.1, Baso % (Auto) 0.5, Absolute Neuts (auto) 10.2 H, Absolute Lymphs (auto) 1.06, Nucleated RBC % 0, Sodium 141, Potassium 4.6, Chloride 109 H, Carbon Dioxide 29.0, Anion Gap 3 L, BUN 23 H, Creatinine 2.61 H, Estim Creat Clear Calc 32.06, Est GFR (MDRD) Af Amer 32 L, Est GFR (MDRD) Non-Af 27 L, BUN/Creatinine Ratio 8.8 L, Glucose 128 H, Calcium 7.9 L, Phosphorus 2.9, Iron 28 L, TIBC 45 L, Iron Saturation 62.2 H, Ferritin 419 H, Vitamin B12 > 2000 H 05/17/23 06:27: POC Glucose 126 H Micro: Microbiology 05/16/23 12:35 Stool Stool Occult Blood (IBIS) - Final Occult Blood Positive 05/10/23 12:40 Blood Culture (Wb) - Arm Left Blood Culture - Final No growth in 5 days. 05/10/23 10:35 Blood Culture (Wb) - Left Hand Blood Culture - Final No growth in 5 days. 05/10/23 17:30 Urine Catheter - Catheter Urine Culture - Final Escherichia coli 05/12/23 17:50 Stool Stool Occult Blood (IBIS) - Final Occult Blood Positive 05/09/23 21:31 Urine, Clean Catch Legionella Antigen - Final 05/09/23 21:31 Urine, Clean Catch Streptococcus pneumoniae Antigen (M - Final Rhythm Strip Rhythm Strip: Sinus Rhythm Physical Exam Narrative Alert and oriented, no apparent distress S1, S2, RRR Lung sounds clear anteriorly. No wheezes rhonchi or rales noted Abdomen soft, nontender Edema noted bilateral lower legs and arms Indwelling Gillis with clear urine? Assessment & Plan Assessment/Plan (1) MALIK (acute kidney injury): (2) HTN (hypertension): PLAN: Plan Impression/Plan: The patient is a 62-year-old man with past history of type 2 diabetes mellitus, hypertension, CAD, aortic valve replacement, sick sinus syndrome status post PPM, polysubstance use disorder, and hyperlipidemia. The patient presents to the hospital on 05/09/2023 with abdominal pain. The patient was diagnosed with alcohol withdrawal and severe sepsis attributed to right lower lobe pneumonia. Nephrology is following for acute kidney injury. - Acute kidney injury with normal baseline serum creatinine (1.00 mg/dL (November 2022)). MALIK secondary to ischemic ATN related to sepsis. Serum creatinine was 1.50 mg/dL on presentation on 05/09/2023 and peaked at 2.93 mg/dL on 05/14/2023. Serum creatinine slight improvement to 2.61 mg/dL today. Potassium and bicarb normal. Urine output has picked up. Patient is edematous, HCTZ was on hold due to MALIK, renal function improving therefore we will restart low-dose diuretic Continue to hold ramipril, hydrochlorothiazide, metformin. There is no need for kidney replacement therapy. Continue to encourage oral intake. Labs ordered for a.m. - Hypertension. BP is reasonably controlled off of ramipril and hy drochlorothiazide. These medications are on hold because of MALIK. Currently on metoprolol succinate.
[2023-05-17] MEDS: Pantoprazole Sodium 40 MG in 0.9% Normal Saline (100mL MB+) 100 ML 330 MG IV ×2 (10:12→20:52)
--- NOTE | 2023-05-17 10:54 | CASEMGMT ---
Discharge Planning: Communication via [facility] from [facility] stating pt has been accepted and precert will be started. César Wallis RN ACM
[2023-05-17] MEDS: Insulin Lispro 100 UNIT/ML INSULN.PEN SC ×3 (11:04→20:55)
[2023-05-17] MEDS: Furosemide 40 MG/4 ML Vial IV (11:04)
[2023-05-17] MEDS: Menthol/Lanolin/Calamine/Znox 113 GM Tube 1 APPLIC TOPICAL ×2 (11:05→20:37)
[2023-05-17 11:33] LABS: Bedside Glucose 272 mg/dL (74-106)
[2023-05-17] MEDS: Cefdinir 300 MG Capsule PO (20:38)
--- NOTE | 2023-05-17 20:50 | CPS ---
Patient refused PAP therapy
[2023-05-17 21:51] LABS: Bedside Glucose 364 mg/dL (74-106)
[2023-05-17 22:03] LABS: Bedside Glucose 245 mg/dL (74-106)
[2023-05-18] VITALS (8 sets, daily range): BP systolic 121–141; BP diastolic 84–124; PULSE 72–82; RESP 16–18; TEMP 36.6–36.8; O2SAT 94–98; BMI 26.7
[2023-05-18 05:08] LABS: Absolute Lymphocyte Count 1.12 X10^3/uL (0.83-4.51); Absolute Neutrophil Count 12.3 X10^3/uL (2.0-7.7); Basophil# 0.08 X10^3/uL; Basophil% 0.6 % (0-1); Eosinophil# 0.09 X10^3/uL; Eosinophils% 0.6 % (0-5); Hematocrit 25.1 % (40-54); Lymphocyte # 1.12 X10^3/ul (0.83-4.51); Lymphocyte % 7.8 % (19-41); Mean Corp Hgb Conc 31.9 g/dL (32-36); Mean Corpuscular Volume 106.8 fL (80-94); Mean Platelet Vol. 11.4 fl (6.2-12.0); Monocyte# 0.64 X10^3/uL; Monocyte% 4.4 % (0-10); NRBC Flagged by Analyzer 0 % (0-5); Neutrophil # 12.26 X10^3/uL (2.7-7.7); Platelet Count 233 K/mm3 (150-450); RBC Distribution Width CV 15.9 % (11.6-14.6); RBC Distribution Width SD 61.1 fl (35.1-43.9); Red Blood Count 2.35 M/mm3 (4.6-6.2); White Blood Count 14.4 K/mm3 (4.4-11.0)
[2023-05-18] MEDS: Nystatin Powder 15gm Bottle 1 APPLIC TOPICAL ×3 (06:25→20:17)
[2023-05-18 06:46] LABS: Bedside Glucose 100 mg/dL (74-106)
--- NOTE | 2023-05-18 08:28 | PN.HOSP_ITS ---
Reason for Visit Reason for Visit: Diagnoses Sepsis, unspecified organism (05/09/23) Unspecified severe protein-calorie malnutrition (05/09/23) Alcohol abuse, uncomplicated (05/09/23) Alcohol dependence, uncomplicated (05/09/23) Alcohol use, unspecified with withdrawal, uncomplicated (05/09/23) Essential (primary) hypertension (05/09/23) Alcohol-induced chronic pancreatitis (05/09/23) Acute kidney failure, unspecified (05/09/23) Acute cystitis without hematuria (05/09/23) Patient's noncompliance with other medical treatment and regimen due to unspecified reason (05/09/23) Objective Data Objective Data Vital Signs: Vital Signs Temp Pulse Resp BP Pulse Ox O2 Del Method O2 Flow Rate 97.9 F 72 16 136/124 H 98 Nasal Cannula 2 05/18/23 02:55 05/18/23 02:55 05/18/23 02:55 05/18/23 02:55 05/18/23 02:55 05/18/23 02:55 05/18/23 02:55 FiO2 25 05/15/23 11:10 Oxygen Flow Rate (L/min) 2 Oxygen Delivery Method Nasal Cannula Weight: 192 lb 0.362 oz Body Mass Index (BMI) 26.7 Intake & Output: Intake and Output for Last 24 Hours 05/16/23 05/17/23 05/18/23 23:59 23:59 23:59 Intake Total 2782.50 / 2782.50 860 / 860 0 / 0 Output Total 3200 / 4500 5100 / 5100 1100 / 1100 Balance -417.50 / -1717.50 -4240 / -4240 -1100 / -1100 Lab / Micro Data 05/18/23 05:00 05/17/23 06:15 Labs: Laboratory Results - last 24 hr 05/17/23 06:15: Vitamin B12 > 2000 H 05/17/23 11:03: POC Glucose 272 H 05/17/23 18:08: POC Glucose 245 H 05/17/23 20:54: POC Glucose 364 H 05/18/23 05:00: WBC 14.4 H, RBC 2.35 L, Hgb 8.0 L, Hct 25.1 L, MCV 106.8 H, MCH 34.0 H, MCHC 31.9 L, RDW Std Deviation 61.1 H, RDW Coeff of Kalpana 15.9 H, Plt Count 233, MPV 11.4, Immature Gran % (Auto) 1.600 H, Neut % (Auto) 85.0 H, Lymph % (Auto) 7.8 L, [place] % (Auto) 4.4, Eos % (Auto) 0.6, Baso % (Auto) 0.6, Absolute Neuts (auto) 12.3 H, Absolute Lymphs (auto) 1.12, Nucleated RBC % 0 05/18/23 06:24: POC Glucose 100 Micro: Microbiology 05/16/23 12:35 Stool Stool Occult Blood (IBIS) - Final Occult Blood Positive 05/10/23 12:40 Blood Culture (Wb) - Arm Left Blood Culture - Final No growth in 5 days. 05/10/23 10:35 Blood Culture (Wb) - Left Hand Blood Culture - Final No growth in 5 days. 05/10/23 17:30 Urine Catheter - Catheter Urine Culture - Final Escherichia coli 05/12/23 17:50 Stool Stool Occult Blood (IBIS) - Final Occult Blood Positive 05/09/23 21:31 Urine, Clean Catch Legionella Antigen - Final 05/09/23 21:31 Urine, Clean Catch Streptococcus pneumoniae Antigen (M - Final Rhythm Strip Rhythm Strip: Sinus Rhythm Physical Exam Narrative Seen and examined. No acute issues overnight but patient feels very weak. Patient has similar swelling of upper and lower extremities. Physical exam: General: Alert, Oriented x3, Cooperative HEENT: Atraumatic, PERRLA, EOMI, Normocephalic Oral: Oral mucosa dry. No Gingival or Mucosal Lesions/ Ulcerations Neck: Supple, No JVD, Negative Carotid Bruits Chest wall/Lungs: Air entry diminished in bilateral lung bases. No crepitation/rhonchi Cardiovascular: Paced rhythm. Mechanical valve click. Systolic murmur. Normal S1, Normal S2 Abdomen: Bowel Sounds Present, Soft, Non Tender, Non-Distended : No dysuria. No renal angle tenderness. No suprapubic tenderness. Extremities: Right arm PICC line bilateral lower extremity and upper extremity subcutaneous edema. Capillary Refill Less than 3 Seconds Skin: Subcutaneous ecchymosis/bruising probably from PICC line. No palpable induration/hardness. Musculoskeletal: No Tenderness to Palpation of Joints or Extremities. ROM restricted muscle strength 4/5 and both knees and hip joints Neurological: Cranial nerves II-XII grossly intact, DTR 2+/4. No acute focal neurological deficit. Psych/Mental Status: Flat affect. Assessment & Plan Assessment/Plan (1) Sepsis: PLAN: Plan Patient is a 62-year-old gentleman with multiple comorbidities admitted with acute alcohol withdrawal. Patient had recently been discharged from the hospital To father's home after he refused to SNF . He was also found to be hypotensive with acute cystitis on admission. 1. Sepsis ? Secondary to acute cystitis as evidenced by the presence of an infection, SIRS criteria as well as evidence of endorgan dysfunction with acute kidney injury as well as hypotension. Sepsis protocol initiated ordered lactic acid level blood cultures patient already on Rocephin patient resuscitated with IV fluids per protocol transferred to the intensive care unit in guarded ordered for PICC line. If patient does not respond to fluid resuscitation plan will be to start patient on norepinephrine. Consult placed to senior lead java developer 05/16: Sepsis has resolved. 2. Chronic alcohol dependence with acute alcohol withdrawal ? Admitted to regular nursing floor managed with phenobarb taper.? Patient progressed being monitored with CIWA protocol 05/16: Earlier phenobarbital discontinued as patient was getting lethargic and delirious. 3. Acute kidney injury ? Patient started on IV fluids subsequent monitoring of electrolytes ordered ? 05/12/2023; patient kidney function continues to worsen will continue with IV fluids. Patient was on vancomycin and Zosyn vancomycin discontinued given worsening kidney ?05/13/2023 consult was placed to nephrology given worsening kidney function. Renal ultrasound obtained the day prior came back unremarkable ? 05/14/2023; kidney function continues to worsen continuous monitoring ordered ? 05/15/2023 kidney function continues to worsen. ? 05/16/2023 patient kidney function appears to be stable at this point 05/16: Creatinine during the hospital stay increased from 1.5-2.93 and then stab ilizing at 2.61. 05/17: Patient was started on furosemide 40 mg IV daily yesterday by middle school band teacher. BMP from today pending. 4. Mild hyponatremia ? Secondary to chronic alcohol abuse monitoring sodium corrected to 148. 5. Coagulopathy ? Secondary to chronic liver disease from patient chronic alcohol use 6. Acute transaminitis ? Monitoring 7.? Diabetes mellitus type II -Continue patient on his home regimen in addition to Accu-Cheks before meals and at bedtime with sliding scale coverage 8.? Sick sinus syndrome ? Status post pacemaker placement 9.? History of ascending aortic dissection ? Status post repair 10.? Valvular heart disease - history of aortic valve replacement with bioprosthetic material 11.? Hypertension - Blood pressure low on admission antihypertensives held 12. Dyslipidemia -Patient is on statin therapy, continued at home dose 13. GERD ? On famotidine 14. Thrombocytopenia ? Patient has had a precipitous drop in his platelet count. No bleeding at this point we will continue to monitor 05/14/2023 platelet count trending up we will continue with monitoring 15. Anemia ? Suspected to be secondary to anemia of chronic disorder monitoring H&H with plans to transfuse if patient becomes symptomatic or hemoglobin falls below 7 05/17: H&H 825%. Platelet count 233,000. 16. DVT prophylaxis ? SCDs only given that patient coagulopathic 17. Physical deconditioning - Requested for PT OT eval and social science research assistant to assist with discharge planning 18. Anasarca ? Suspected to be secondary to hypoalbuminemia given patient chronic liver disease. Patient did receive IV Lasix 80 mg x 1 Charges/Coding Visit Charges Inpatient E&M: 40097 Subs Hosp L2
--- NOTE | 2023-05-18 08:47 | CASEMGMT ---
SW was informed patient's daughter would like a referral sent to [facility] at [facility]. SW sent a referral to [facility] via [facility]. Ashley STONE
[2023-05-18 08:48] LABS: Pathologist Review Reviewed
--- NOTE | 2023-05-18 09:15 | CASEMGMT ---
Isadora declined patient. BLANKA asked [facility] to start the pre-cert. BLANKA also called patient's daughter Terra and left her a voice mail letting her know this information. Plan: d/c to [facility] pending pre-cert. Ashley Ward SPEEDBOAT DRIVER CHASE
[2023-05-18] MEDS: Folic Acid 1 MG Tablet PO (10:57)
[2023-05-18] MEDS: Thiamine Hydrochloride 100 MG Tablet PO (10:57)
[2023-05-18] MEDS: Lactobacillis Acidophilus 2 CAP PO ×2 (10:57→20:16)
[2023-05-18] MEDS: Furosemide 40 MG/4 ML Vial IV (10:57)
[2023-05-18] MEDS: Potassium Chloride Oral Tablet 20 MEQ PO (10:57)
[2023-05-18] MEDS: Metoprolol(XL)Succ 25 MG Tablet PO ×2 (10:57→20:17)
[2023-05-18] MEDS: Multivitamins,Therapeutic Tablet 1 TABLET PO (10:57)
[2023-05-18] MEDS: Menthol/Lanolin/Calamine/Znox 113 GM Tube 1 APPLIC TOPICAL ×2 (10:57→20:17)
[2023-05-18] MEDS: Gabapentin 300 MG Capsule PO (11:03)
[2023-05-18] MEDS: Insulin Lispro 100 UNIT/ML INSULN.PEN SC ×3 (11:10→20:16)
[2023-05-18] MEDS: Pantoprazole Sodium 40 MG in 0.9% Normal Saline (100mL MB+) 100 ML 330 MG IV ×2 (11:16→20:25)
[2023-05-18 11:44] LABS: Bedside Glucose 225 mg/dL (74-106)
[2023-05-18 12:04] LABS: Anion Gap 8 (5-15); BUN 20 mg/dL (7-18); BUN/Creat Ratio 8.1 RATIO (10-20); Calcium,Total 8.2 mg/dL (8.5-10.1); Chloride 117 mmol/L (98-107); Creatinine, Serum 2.47 mg/dL (0.70-1.30); EST Glomerular Filtration Rate 29 mL/min (>60); Est Glom Filt Rate - Afr Amer 34 mL/min (>60); Estimated Creatinine Clearance 33.87 ml/min; Glucose 117 mg/dL (74-106); Potassium 5.1 mmol/L (3.5-5.1); Sodium Level 147 mmol/L (136-145)
[2023-05-18 17:24] LABS: Bedside Glucose 310 mg/dL (74-106)
[2023-05-18] MEDS: 0.9% Saline Lock 10 ML Syringe IV ×2 (17:51→20:25)
--- NOTE | 2023-05-18 19:23 | PCM.PN.REN ---
Subjective Subjective No new complaints. Good urine output. Objective Data Objective Data Vital Signs: Vital Signs Temp Pulse Resp BP Pulse Ox O2 Del Method O2 Flow Rate 98.2 F 78 16 134/91 H 94 Room Air 2 05/18/23 17:06 05/18/23 17:06 05/18/23 17:06 05/18/23 17:06 05/18/23 17:06 05/18/23 17:06 05/18/23 07:20 FiO2 25 05/15/23 11:10 Oxygen Flow Rate (L/min) 2 Oxygen Delivery Method Room Air Weight: 87.1 kg Body Mass Index (BMI) 26.7 Intake & Output: Intake and Output for Last 24 Hours 05/16/23 05/17/23 05/18/23 23:59 23:59 23:59 Intake Total 2782.50 / 2782.50 860 / 860 1760 / 1760 Output Total 3200 / 4500 5100 / 5100 4500 / 4500 Balance -417.50 / -1717.50 -4240 / -4240 -2740 / -2740 Lab / Micro Data 05/18/23 05:00 05/18/23 05:00 Labs: Laboratory Results - last 24 hr 05/14/23 07:28: Diff Path Review Reviewed 05/17/23 18:08: POC Glucose 245 H 05/17/23 20:54: POC Glucose 364 H 05/18/23 05:00: WBC 14.4 H, RBC 2.35 L, Hgb 8.0 L, Hct 25.1 L, MCV 106.8 H, MCH 34.0 H, MCHC 31.9 L, RDW Std Deviation 61.1 H, RDW Coeff of Kalpana 15.9 H, Plt Count 233, MPV 11.4, Immature Gran % (Auto) 1.600 H, Neut % (Auto) 85.0 H, Lymph % (Auto) 7.8 L, [place] % (Auto) 4.4, Eos % (Auto) 0.6, Baso % (Auto) 0.6, Absolute Neuts (auto) 12.3 H, Absolute Lymphs (auto) 1.12, Nucleated RBC % 0, Sodium 147 H, Potassium 5.1, Chloride 117 H, Carbon Dioxide 22.0, Anion Gap 8, BUN 20 H, Creatinine 2.47 H, Estim Creat Clear Calc 33.87, Est GFR (MDRD) Af Amer 34 L, Est GFR (MDRD) Non-Af 29 L, BUN/Creatinine Ratio 8.1 L, Glucose 117 H, Calcium 8.2 L 05/18/23 06:24: POC Glucose 100 05/18/23 10:53: POC Glucose 225 H 05/18/23 17:02: POC Glucose 310 H Micro: Microbiology 05/16/23 12:35 Stool Stool Occult Blood (IBIS) - Final Occult Blood Positive 05/10/23 12:40 Blood Culture (Wb) - Arm Left Blood Culture - Final No growth in 5 days. 05/10/23 10:35 Blood Culture (Wb) - Left Hand Blood Culture - Final No growth in 5 days. 05/10/23 17:30 Urine Catheter - Catheter Urine Culture - Final Escherichia coli 05/12/23 17:50 Stool Stool Occult Blood (IBIS) - Final Occult Blood Positive 05/09/23 21:31 Urine, Clean Catch Legionella Antigen - Final 05/09/23 21:31 Urine, Clean Catch Streptococcus pneumoniae Antigen (M - Final Rhythm Strip Rhythm Strip: Sinus Rhythm Physical Exam Narrative Alert and oriented, no apparent distress S1, S2, RRR Lung sounds clear anteriorly. No wheezes rhonchi or rales noted Abdomen soft, nontender Edema noted bilateral lower legs and arms Indwelling Gillis with clear urine? Const alert, no apparent distress and average body habitus Orientation / Consciousness: oriented to person and confused HEENT normocephalic Resp clear to auscultation bilaterally Auscultation: diminished lung sounds bilateral lower Cardio no murmurs GI non-tender Auscultation: normoactive bowel sounds Palpation: ascites external exam normal Neuro Sensorium / Orientation: awake Psych cooperative Assessment & Plan Assessment/Plan (1) MALIK (acute kidney injury): (2) HTN (hypertension): PLAN: Plan Impression/Plan: The patient is a 62-year-old man with past history of type 2 diabetes mellitus, hypertension, CAD, aortic valve replacement, sick sinus syndrome status post PPM, polysubstance use disorder, and hyperlipidemia. The patient presents to the hospital on 05/09/2023 with abdominal pain. The patient was diagnosed with alcohol withdrawal and severe sepsis attributed to right lower lobe pneumonia. Nephrology is following for acute kidney injury. - Acute kidney injury with normal baseline serum creatinine (1.00 mg/dL (November 2022)). MALIK secondary to ischemic ATN related to sepsis. Serum creatinine was 1.50 mg/dL on presentation on 05/09/2023 and peaked at 2.93 mg/dL on 05/14/2023. Creatinine is improving. Continue to hold ramipril, hydrochlorothiazide, metformin. - Hypertension. Blood pressure is acceptable Baseline creatinine was normal as of November last year. Came in with a creatinine of 1.5, peak creatinine 2.9. Improving slowly. Renal ultrasound unremarkable. Urine analysis with protein, WBC, RBC consistent with UTI. Urine culture shows E. coli. Antibiotics as per primary. Has significant edema overall. He says he has had this for several days now. Tolerating Lasix okay so far. Good urine output.
[2023-05-18 23:08] LABS: Bedside Glucose 329 mg/dL (74-106)
[2023-05-19] VITALS (12 sets, daily range): BP systolic 102–158; BP diastolic 61–105; PULSE 65–103; RESP 16–20; TEMP 36.4–36.8; O2SAT 93–98; BMI 25.8
[2023-05-19 05:56] LABS: Absolute Lymphocyte Count 0.96 X10^3/uL (0.83-4.51); Absolute Neutrophil Count 10.6 X10^3/uL (2.0-7.7); Basophil# 0.07 X10^3/uL; Basophil% 0.6 % (0-1); Eosinophil# 0.07 X10^3/uL; Eosinophils% 0.6 % (0-5); Hematocrit 21.5 % (40-54); Lymphocyte # 0.96 X10^3/ul (0.83-4.51); Lymphocyte % 7.7 % (19-41); Mean Corp Hgb Conc 32.6 g/dL (32-36); Mean Corpuscular Hgb 34.8 pg (27.0-32.0); Mean Platelet Vol. 11.3 fl (6.2-12.0); Monocyte# 0.56 X10^3/uL; Monocyte% 4.5 % (0-10); NRBC Flagged by Analyzer 0 % (0-5); Neutrophil # 10.63 X10^3/uL (2.7-7.7); Neutrophil % 85.7 % (47-70); Platelet Count 230 K/mm3 (150-450); RBC Distribution Width CV 15.7 % (11.6-14.6); RBC Distribution Width SD 61.3 fl (35.1-43.9); Red Blood Count 2.01 M/mm3 (4.6-6.2); White Blood Count 12.4 K/mm3 (4.4-11.0)
[2023-05-19 06:20] LABS: Anion Gap 2 (5-15); BUN 19 mg/dL (7-18); BUN/Creat Ratio 9.1 RATIO (10-20); Calcium,Total 7.5 mg/dL (8.5-10.1); Chloride 110 mmol/L (98-107); Creatinine, Serum 2.09 mg/dL (0.70-1.30); EST Glomerular Filtration Rate 35 mL/min (>60); Est Glom Filt Rate - Afr Amer 42 mL/min (>60); Estimated Creatinine Clearance 40.03 ml/min; Glucose 98 mg/dL (74-106); Potassium 4.7 mmol/L (3.5-5.1); Sodium Level 140 mmol/L (136-145)
[2023-05-19] MEDS: 0.9% Saline Lock 10 ML Syringe IV ×3 (06:31→17:08)
[2023-05-19 06:49] LABS: Bedside Glucose 95 mg/dL (74-106)
--- NOTE | 2023-05-19 07:24 | PCM.PN.HOSP ---
Reason for Visit Reason for Visit: Diagnoses Sepsis, unspecified organism (05/09/23) Unspecified severe protein-calorie malnutrition (05/09/23) Alcohol abuse, uncomplicated (05/09/23) Alcohol dependence, uncomplicated (05/09/23) Alcohol use, unspecified with withdrawal, uncomplicated (05/09/23) Essential (primary) hypertension (05/09/23) Alcohol-induced chronic pancreatitis (05/09/23) Acute kidney failure, unspecified (05/09/23) Acute cystitis without hematuria (05/09/23) Patient's noncompliance with other medical treatment and regimen due to unspecified reason (05/09/23) Objective Data Objective Data Vital Signs: Vital Signs Temp Pulse Resp BP Pulse Ox O2 Del Method O2 Flow Rate 98.1 F 84 16 146/94 H 94 Room Air 2 05/19/23 02:15 05/19/23 02:15 05/19/23 02:15 05/19/23 02:15 05/19/23 02:15 05/19/23 02:15 05/18/23 07:20 FiO2 25 05/15/23 11:10 Oxygen Flow Rate (L/min) 2 Oxygen Delivery Method Room Air Weight: 185 lb 3.013 oz Body Mass Index (BMI) 25.8 Intake & Output: Intake and Output for Last 24 Hours 05/17/23 05/18/23 05/19/23 23:59 23:59 23:59 Intake Total 860 / 860 1870 / 1870 Output Total 5100 / 5100 4900 / 5350 1050 / 1050 Balance -4240 / -4240 -3030 / -3480 -1050 / -1050 Lab / Micro Data 05/19/23 05:39 05/19/23 05:39 Labs: Laboratory Results - last 24 hr 05/14/23 07:28: Diff Path Review Reviewed 05/18/23 05:00: Sodium 147 H, Potassium 5.1, Chloride 117 H, Carbon Dioxide 22.0, Anion Gap 8, BUN 20 H, Creatinine 2.47 H, Estim Creat Clear Calc 33.87, Est GFR (MDRD) Af Amer 34 L, Est GFR (MDRD) Non-Af 29 L, BUN/Creatinine Ratio 8.1 L, Glucose 117 H, Calcium 8.2 L 05/18/23 10:53: POC Glucose 225 H 05/18/23 17:02: POC Glucose 310 H 05/18/23 20:15: POC Glucose 329 H 05/19/23 05:39: WBC 12.4 H, RBC 2.01 L, Hgb 7.0 L, Hct 21.5 L, MCV 107.0 H, MCH 34.8 H, MCHC 32.6, RDW Std Deviation 61.3 H, RDW Coeff of [place] 15.7 H, Plt Count 230, MPV 11.3, Immature Gran % (Auto) 0.900, Neut % (Auto) 85.7 H, Lymph % (Auto) 7.7 L, [place] % (Auto) 4.5, Eos % (Auto) 0.6, Baso % (Auto) 0.6, Absolute Neuts (auto) 10.6 H, Absolute Lymphs (auto) 0.96, Nucleated RBC % 0, Sodium 140, Potassium 4.7, Chloride 110 H, Carbon Dioxide 28.0, Anion Gap 2 L, BUN 19 H, Creatinine 2.09 H, Estim Creat Clear Calc 40.03, Est GFR (MDRD) Af Amer 42 L, Est GFR (MDRD) Non-Af 35 L, BUN/Creatinine Ratio 9.1 L, Glucose 98, Calcium 7.5 L 05/19/23 06:30: POC Glucose 95 Micro: Microbiology 05/16/23 12:35 Stool Stool Occult Blood (IBIS) - Final Occult Blood Positive 05/10/23 12:40 Blood Culture (Wb) - Arm Left Blood Culture - Final No growth in 5 days. 05/10/23 10:35 Blood Culture (Wb) - Left Hand Blood Culture - Final No growth in 5 days. 05/10/23 17:30 Urine Catheter - Catheter Urine Culture - Final Escherichia coli 05/12/23 17:50 Stool Stool Occult Blood (IBIS) - Final Occult Blood Positive 05/09/23 21:31 Urine, Clean Catch Legionella Antigen - Final 05/09/23 21:31 Urine, Clean Catch Streptococcus pneumoniae Antigen (M - Final Rhythm Strip Rhythm Strip: Sinus Rhythm Physical Exam Narrative Seen and examined. No acute issues overnight but patient feels very weak. H&H dropped to 7.0 in the morning today. No change in swelling of upper and lower extremities. Physical exam: General: Alert, Oriented x3, Cooperative HEENT: Atraumatic, PERRLA, EOMI, Normocephalic Oral: Oral mucosa moist. No Gingival or Mucosal Lesions/ Ulcerations Neck: Supple, No JVD, Negative Carotid Bruits Chest wall/Lungs: Air entry diminished in bilateral lung bases. No crepitation/rhonchi Cardiovascular: Paced rhythm. Mechanical valve click. Systolic murmur. Normal S1, Normal S2 Abdomen: Bowel Sounds Present, Soft, Non Tender, Non-Distended : No dysuria. No renal angle tenderness. No suprapubic tenderness. Extremities: Right arm PICC line. Bilateral lower extremity and upper extremities subcutaneous edema. Capillary Refill Less than 3 Seconds Skin: Subcutaneous ecchymosis/bruising probably from PICC line. No palpable induration/hardness. Musculoskeletal: No Tenderness to Palpation of Joints or Extremities. ROM restricted muscle strength 4/5 and both knees and hip joints Neurological: Cranial nerves II-XII grossly intact, DTR 2+/4. No acute focal neurological deficit. Psych/Mental Status: Flat affect. Assessment & Plan Assessment/Plan (1) Sepsis: PLAN: Plan Patient is a 62-year-old gentleman with multiple comorbidities admitted with acute alcohol withdrawal. Patient had recently been discharged from the hospital [facility]'s home after he refused to SNF . He was also found to be hypotensive with acute cystitis on admission. 1. Sepsis ? Secondary to acute cystitis as evidenced by the presence of an infection, SIRS criteria as well as evidence of endorgan dysfunction with acute kidney injury as well as hypotension. Sepsis protocol initiated ordered lactic acid level blood cultures patient already on Rocephin patient resuscitated with IV fluids per protocol transferred to the intensive care unit in guarded ordered for PICC line. If patient does not respond to fluid resuscitation plan will be to start patient on norepinephrine. Consult placed to commercial account manager 05/16: Sepsis has resolved. 2. Chronic alcohol dependence with acute alcohol withdrawal ? Admitted to regular nursing floor managed with phenobarb taper.? Patient progressed being monitored with CIWA protocol 05/16: Earlier phenobarbital discontinued as patient was getting lethargic and delirious. 3. Acute kidney injury ? Patient started on IV fluids subsequent monitoring of electrolytes ordered ? 05/12/2023; patient kidney function continues to worsen will continue with IV fluids. Patient was on vancomycin and Zosyn vancomycin discontinued given worsening kidney ?05/13/2023 consult was placed to nephrology given worsening kidney function. Renal ultrasound obtained the day prior came back unremarkable ? 05/14/2023; kidney function continues to worsen continuous monitoring ordered ? 05/15/2023 kidney function continues to worsen. ? 05/16/2023 patient kidney function appears to be stable at this point 05/16: Creatinine during the hospital stay increased from 1.5-2.93 and then stabilizing at 2.61. 05/17: Patient was started on furosemide 40 mg IV daily yesterday by splitting machine feeder. BMP from today pending. 4. Mild hyponatremia ? Secondary to chronic alcohol abuse monitoring sodium corrected to 148. 5. Coagulopathy ? Secondary to chronic liver disease from patient chronic alcohol use 6. Acute transaminitis ? Monitoring 7.? Diabetes mellitus type II -Continue patient on his home regimen in addition to Accu-Cheks before meals and at bedtime with sliding scale coverage 8.? Sick sinus syndrome ? Status post pacemaker placement 9.? History of ascending aortic dissection ? Status post repair 10.? Valvular heart disease - history of aortic valve replacement with bioprosthetic material 11.? Hypertension - Blood pressure low on admission antihypertensives held 12. Dyslipidemia -Patient is on statin therapy, continued at home dose 13. GERD ? On famotidine 14. Thrombocytopenia ? Patient has had a precipitous drop in his platelet count. No bleeding at this point we will continue to monitor 05/14/2023 platelet count trending up we will continue with monitoring 15. Acute on severe anemia of chronic disease ? Suspected to be secondary to anemia of chronic disorder monitoring H&H with plans to transfuse if patient becomes symptomatic or hemoglobin falls below 7 05/17: H&H 8/25%. Platelet count 233,000. 05/18: H&H dropped to 7.0/21%. 1 unit of PRBC ordered. Iron workup shows ferritin high 419, iron saturation 62% low serum iron and TIBC, suggestive of anemia of chronic disease. 16. DVT prophylaxis ? SCDs only given that patient coagulopathic 17. Physical deconditioning - Requested for PT OT eval and hospital social worker to assist with discharge planning 18. Anasarca with moderate chronic protein calorie malnutrition: Patient has anasarca therefore BMI is elevated 25.8 kg/m? but patient has poor skin condition with loss of subcutaneous fat and mild decreased muscle bulk in extremities and weakness at knee and hip joints 4/5. Therefore I agree that patient has moderate chronic malnutrition. ? Suspected to be secondary to hypoalbuminemia given patient chronic liver disease. Patient did receive IV Lasix 80 mg x 1 Charges/Coding Visit Charges Inpatient E&M: 21964 Subs Hosp L2
[2023-05-19] MEDS: Multivitamins,Therapeutic Tablet 1 TABLET PO (08:15)
[2023-05-19] MEDS: Folic Acid 1 MG Tablet PO (08:15)
[2023-05-19] MEDS: Thiamine Hydrochloride 100 MG Tablet PO (08:15)
[2023-05-19] MEDS: Potassium Chloride Oral Tablet 20 MEQ PO (08:15)
[2023-05-19] MEDS: Gabapentin 300 MG Capsule PO (08:15)
[2023-05-19] MEDS: Menthol/Lanolin/Calamine/Znox 113 GM Tube 1 APPLIC TOPICAL ×2 (08:16→21:07)
[2023-05-19] MEDS: Lactobacillis Acidophilus 2 CAP PO ×2 (08:16→21:08)
[2023-05-19] MEDS: Furosemide 40 MG/4 ML Vial IV (08:16)
[2023-05-19] MEDS: Metoprolol(XL)Succ 25 MG Tablet PO ×2 (09:49→21:09)
[2023-05-19] MEDS: Pantoprazole Sodium 40 MG in 0.9% Normal Saline (100mL MB+) 100 ML 330 MG IV ×2 (09:49→21:14)
[2023-05-19] MEDS: Insulin Lispro 100 UNIT/ML INSULN.PEN SC ×3 (11:22→21:09)
[2023-05-19 11:52] LABS: Bedside Glucose 248 mg/dL (74-106)
[2023-05-19] MEDS: Nystatin Powder 15gm Bottle 1 APPLIC TOPICAL (14:05)
--- NOTE | 2023-05-19 15:03 | PN.RENAL_ITS ---
Subjective Subjective Resting in bed. Denies any complaints. States feels better today. Getting PRBC now. Objective Data Objective Data Vital Signs: Vital Signs Temp Pulse Resp BP Pulse Ox O2 Del Method O2 Flow Rate 97.5 F L 72 18 128/85 H 94 Room Air 2 05/19/23 14:15 05/19/23 14:15 05/19/23 14:15 05/19/23 14:15 05/19/23 14:15 05/19/23 14:21 05/18/23 07:20 FiO2 25 05/15/23 11:10 Oxygen Flow Rate (L/min) 2 Oxygen Delivery Method Room Air Weight: 84 kg Body Mass Index (BMI) 25.8 Intake & Output: Intake and Output for Last 24 Hours 05/17/23 05/18/23 05/19/23 23:59 23:59 23:59 Intake Total 860 / 860 1870 / 1870 570 / 570 Output Total 5100 / 5100 4900 / 5350 3150 / 3150 Balance -4240 / -4240 -3030 / -3480 -2580 / -2580 Lab / Micro Data 05/19/23 05:39 05/19/23 05:39 Labs: Laboratory Results - last 24 hr 05/18/23 17:02: POC Glucose 310 H 05/18/23 20:15: POC Glucose 329 H 05/19/23 05:39: WBC 12.4 H, RBC 2.01 L, Hgb 7.0 L, Hct 21.5 L, MCV 107.0 H, MCH 34.8 H, MCHC 32.6, RDW Std Deviation 61.3 H, RDW Coeff of [place] 15.7 H, Plt Count 230, MPV 11.3, Immature Gran % (Auto) 0.900, Neut % (Auto) 85.7 H, Lymph % (Auto) 7.7 L, [place] % (Auto) 4.5, Eos % (Auto) 0.6, Baso % (Auto) 0.6, Absolute Neuts (auto) 10.6 H, Absolute Lymphs (auto) 0.96, Nucleated RBC % 0, Sodium 140, Potassium 4.7, Chloride 110 H, Carbon Dioxide 28.0, Anion Gap 2 L, BUN 19 H, Creatinine 2.09 H, Estim Creat Clear Calc 40.03, Est GFR (MDRD) Af Amer 42 L, Est GFR (MDRD) Non-Af 35 L, BUN/Creatinine Ratio 9.1 L, Glucose 98, Calcium 7.5 L 05/19/23 06:30: POC Glucose 95 05/19/23 07:50: Blood Type O NEGATIVE, Antibody Screen NEGATIVE, Crossmatch See Detail 05/19/23 11:21: POC Glucose 248 H Micro: Microbiology 05/16/23 12:35 Stool Stool Occult Blood (IBIS) - Final Occult Blood Positive 05/10/23 12:40 Blood Culture (Wb) - Arm Left Blood Culture - Final No growth in 5 days. 05/10/23 10:35 Blood Culture (Wb) - Left Hand Blood Culture - Final No growth in 5 days. 05/10/23 17:30 Urine Catheter - Catheter Urine Culture - Final Escherichia coli 05/12/23 17:50 Stool Stool Occult Blood (IBIS) - Final Occult Blood Positive 05/09/23 21:31 Urine, Clean Catch Legionella Antigen - Final 05/09/23 21:31 Urine, Clean Catch Streptococcus pneumoniae Antigen (M - Final Rhythm Strip Rhythm Strip: Sinus Rhythm Physical Exam Narrative Alert and oriented, no apparent distress S1, S2, RRR Lung sounds clear anteriorly. No wheezes rhonchi or rales noted Abdomen soft, nontender ++Edema noted bilateral lower legs and arms Indwelling Gillis with clear urine Assessment & Plan Assessment/Plan (1) MALIK (acute kidney injury): (2) HTN (hypertension): PLAN: Plan Impression/Plan: The patient is a 62-year-old man with past history of type 2 diabetes mellitus, hypertension, CAD, aortic valve replacement, sick sinus syndrome status post PPM, polysubstance use disorder, and hyperlipidemia. The patient presents to the hospital on 05/09/2023 with abdominal pain. The patient was diagnosed with alcohol withdrawal and severe sepsis attributed to right lower lobe pneumonia. Nephrology is following for acute kidney injury. - Acute kidney injury with normal baseline serum creatinine (1.00 mg/dL (November 2022)). MALIK secondary to ischemic ATN related to sepsis. Serum creatinine was 1.50 mg/dL on presentation on 05/09/2023 and peaked at 2.93 mg/dL on 05/14/2023. Creatinine is improving while on IV Lasix, today creatinine 2.09. Urine output yesterday almost 5 L. Renal ultrasound unremarkable. Continue to hold ramipril, hydrochlorothiazide, metformin. - Hypertension. Blood pressure is acceptable -Hemoglobin is 7.0 today, patient is getting 1 unit PRBC. Will give one-time dose of Lasix after blood. Labs ordered for morning.
[2023-05-19 16:55] LABS: Bedside Glucose 253 mg/dL (74-106)
[2023-05-19] MEDS: Furosemide 20 MG/2 ML VIAL IV (17:08)
[2023-05-19 21:34] LABS: Bedside Glucose 323 mg/dL (74-106)
[2023-05-20 03:38] VITALS: BP 117/75; PULSE 68; RESP 18; TEMP 36.4; O2SAT 97
[2023-05-20 06:00] VITALS: BMI 25.8
[2023-05-20 06:53] LABS: Bedside Glucose 141 mg/dL (74-106)
[2023-05-20 07:30] VITALS: O2SAT 96
[2023-05-20] MEDS: Lactobacillis Acidophilus 2 CAP PO (07:40)
[2023-05-20] MEDS: Folic Acid 1 MG Tablet PO (07:40)
[2023-05-20] MEDS: Multivitamins,Therapeutic Tablet 1 TABLET PO (07:40)
[2023-05-20] MEDS: Potassium Chloride Oral Tablet 20 MEQ PO (07:40)
[2023-05-20] MEDS: Thiamine Hydrochloride 100 MG Tablet PO (07:40)
[2023-05-20] MEDS: Menthol/Lanolin/Calamine/Znox 113 GM Tube 1 APPLIC TOPICAL (07:41)
[2023-05-20] MEDS: Gabapentin 300 MG Capsule PO (07:41)
[2023-05-20 08:13] LABS: Albumin, Serum 1.4 g/dL (3.2-5.0); BUN 19 mg/dL (7-18); BUN/Creat Ratio 9.1 RATIO (10-20); Calcium,Total 7.8 mg/dL (8.5-10.1); Chloride 109 mmol/L (98-107); Creatinine, Serum 2.08 mg/dL (0.70-1.30); EST Glomerular Filtration Rate 35 mL/min (>60); Est Glom Filt Rate - Afr Amer 42 mL/min (>60); Estimated Creatinine Clearance 40.22 ml/min; Glucose 145 mg/dL (74-106); Phosphorus 3.1 mg/dL (2.5-4.9); Potassium 4.7 mmol/L (3.5-5.1); Sodium Level 139 mmol/L (136-145)
[2023-05-20 08:24] LABS: Absolute Neutrophil Count 10.1 X10^3/uL (2.0-7.7); Basophil# 0.09 X10^3/uL; Basophil% 0.7 % (0-1); Eosinophil# 0.08 X10^3/uL; Eosinophils% 0.7 % (0-5); Hematocrit 26.4 % (40-54); Hemoglobin 8.5 g/dL (13.0-16.5); Lymphocyte % 9.8 % (19-41); Mean Corp Hgb Conc 32.2 g/dL (32-36); Mean Corpuscular Hgb 32.8 pg (27.0-32.0); Mean Corpuscular Volume 101.9 fL (80-94); Mean Platelet Vol. 11.9 fl (6.2-12.0); Monocyte# 0.68 X10^3/uL; Monocyte% 5.6 % (0-10); NRBC Flagged by Analyzer 0 % (0-5); Neutrophil # 10.09 X10^3/uL (2.7-7.7); Neutrophil % 82.4 % (47-70); POSITIVE MORPHOLOGY YES; Platelet Count 264 K/mm3 (150-450); RBC Distribution Width CV 18.5 % (11.6-14.6); RBC Distribution Width SD 68.9 fl (35.1-43.9); Red Blood Count 2.59 M/mm3 (4.6-6.2); White Blood Count 12.2 K/mm3 (4.4-11.0)
[2023-05-20 08:29] LABS: Differential Indicated SCAN CRITERIA MET
[2023-05-20 08:48] LABS: Anisocytosis 1+; Differential Comment SCANNED
--- NOTE | 2023-05-20 09:28 | PCM.TXEXTCAR ---
Diet Diet Order/Speech Therapy: 05/11/23 08:25 Carb [Diet: Carbohydrate Controlled] Food consistency:: Easy to Chew Liquid Consistency:: Regular/Thin Dietary Modifications:: Cardiac / Heart Healthy Type of Dietary Supplement:: Glucerna Shake Is pt able to select menu?: Yes Diet Comments: 120mL glucerna CHOCOLATE w/ breakfast and dinner tray; Routine Orders/Code Status Suppository Type: Dulcolax 10mg Suppository Frequency: Daily PRN Wound(s) left elbow: Wound Type: scabbed area Therapies Weight Bearing: Weight bearing as tolerated Extremity Affected:: Bilateral Lower Physical Therapy: Eval and Treat Occupational Therapy: Eval and Treat Speech Therapy: Eval and Treat Problem/Diagnosis (1) MALIK (acute kidney injury): Status: Acute Code(s): N17.9 - Acute kidney failure, unspecified (2) HTN (hypertension): Status: Chronic Code(s): I10 - Essential (primary) hypertension Plan Patient is a 62-year-old gentleman with multiple comorbidities admitted with acute alcohol withdrawal. Patient had recently been discharged from the hospital To father's home after he refused to SNF . He was also found to be hypotensive with acute cystitis on admission. 1. Sepsis ? Secondary to acute cystitis as evidenced by the presence of an infection, SIRS criteria as well as evidence of endorgan dysfunction with acute kidney injury as well as hypotension. Sepsis protocol initiated ordered lactic acid level blood cultures patient already on Rocephin patient resuscitated with IV fluids per protocol transferred to the intensive care unit in guarded ordered for PICC line. If patient does not respond to fluid resuscitation plan will be to start patient on norepinephrine. Consult placed to product support rep 05/16: Sepsis has resolved. 2. Chronic alcohol dependence with acute alcohol withdrawal ? Admitted to regular nursing floor managed with phenobarb taper.? Patient progressed being monitored with CIWA protocol 05/16: Earlier phenobarbital discontinued as patient was getting lethargic and delirious. 3. Acute kidney injury ? Patient started on IV fluids subsequent monitoring of electrolytes ordered ? 05/12/2023; patient kidney function continues to worsen will continue with IV fluids. Patient was on vancomycin and Zosyn vancomycin discontinued given worsening kidney ?05/13/2023 consult was placed to nephrology given worsening kidney function. Renal ultrasound obtained the day prior came back unremarkable ? 05/14/2023; kidney function continues to worsen continuous monitoring ordered ? 05/15/2023 kidney function continues to worsen. ? 05/16/2023 patient kidney function appears to be stable at this point 05/16: Creatinine during the hospital stay increased from 1.5-2.93 and then stabilizing at 2.61. 05/17: Patient was started on furosemide 40 mg IV daily yesterday by die finisher. BMP from today pending. 4. Mild hyponatremia ? Secondary to chronic alcohol abuse monitoring sodium corrected to 148. 5. Coagulopathy ? Secondary to chronic liver disease from patient chronic alcohol use 6. Acute transaminitis ? Monitoring 7.? Diabetes mellitus type II -Continue patient on his home regimen in addition to Accu-Cheks before meals and at bedtime with sliding scale coverage 8.? Sick sinus syndrome ? Status post pacemaker placement 9.? History of ascending aortic dissection ? Status post repair 10.? Valvular heart disease - history of aortic valve replacement with bioprosthetic material 11.? Hypertension - Blood pressure low on admission antihypertensives held 12. Dyslipidemia -Patient is on statin therapy, continued at home dose 13. GERD ? On famotidine 14. Thrombocytopenia ? Patient has had a precipitous drop in his platelet count. No bleeding at this point we will continue to monitor 05/14/2023 platelet count trending up we will continue with monitoring 15. Acute on severe anemia of chronic disease ? Suspected to be secondary to anemia of chronic disorder monitoring H&H with plans to transfuse if patient becomes symptomatic or hemoglobin falls below 7 05/17: H&H 8/25%. Platelet count 233,000. 05/18: H&H dropped to 7.0/21%. 1 unit of PRBC ordered. Iron workup shows ferritin high 419, iron saturation 62% low serum iron and TIBC, suggestive of anemia of chronic disease. 16. DVT prophylaxis ? SCDs only given that patient coagulopathic 17. Physical deconditioning - Requested for PT OT eval and social sciences instructor to assist with discharge planning 18. Anasarca with moderate chronic protein calorie malnutrition: Patient has anasarca therefore BMI is elevated 25.8 kg/m? but patient has poor skin condition with loss of subcutaneous fat and mild decreased muscle bulk in extremities and weakness at knee and hip joints 05/13. Therefore I agree that patient has moderate chronic malnutrition. ? Suspected to be secondary to hypoalbuminemia given patient chronic liver disease. Patient did receive IV Lasix 80 mg x 1 Allergies/Procedures Done in Hospital Allergies No Known Allergies Allergy (Verified 05/09/23 13:37) Type of Care/Length of Stay Estimated LOS: Convalescent Care Less Than 30 days Type of Care Needed: Skilled Rehab Potential: Good Prognosis: Good Additional Orders/Day of Discharge Day of Discharge: 05/20/23 Dietary and Speech Recommendations Dietitian Recommendations/Changes: Carbohydrate-Controlled; Cardiac diet. Recommend fluid restriction as indicated. Will continue Glucerna BID as ordered. Discharge Plan Admission Admit Date/Time: 05/09/23 20:52 Primary Reason for Your Visit: Sepsis, MALIK Attending Provider: Refugio Rojas Primary Care Provider: Dk Pathak [employer] LOAD[employer] RESIDENTIAL DRIVER Consulting Providers: Conrado Pro; Maya Melo; Conrado Morel Discharge Orders/Prescriptions Prescriptions: New thiamine HCl (vitamin B1) [Vitamin B-1] 100 mg Tablet 100 mg PO DAILYCM Qty: 0 0RF L.acidoph,saliva-B.bif-S.therm 175 mg Capsule 2 cap PO BID Qty: 0 0RF folic acid 1 mg Tablet 1 mg PO DAILY@0800 Qty: 0 0RF insulin lispro [Humalog KwikPen Insulin] 100 unit/mL Insulin Pen See Protocol subcut ACHS Qty: 0 0RF Protocol: 4. Sliding Scale Insulin High-Med Dosing Condition: 150-199 mg/dl = 2 units Condition: 200-259 mg/dl = 4 units Condition: 260-324 mg/dl = 6 units Condition: 325-374 mg/dl = 8 units Condition: 375-409 mg/dl = 10 units Condition: 410-449 mg/dl = 11 units Condition: Greater than 449 call physician Protocol Text: - Use for Total Daily Dose of Insulin 56-80 units - Patient who are insulin resistant or septic HIGH MEDIUM DOSING ALGORITHM furosemide 40 mg tablet 40 mg PO DAILY Qty: 30 0RF spironolactone 25 mg tablet 12.5 mg PO DAILY Qty: 30 0RF Rx Instructions: Hold if serum potassium more than 5.1. dicyclomine 10 mg Capsule 20 mg PO Q6H PRN PRN (Reason: abdominal discomfort) Qty: 0 0RF pantoprazole [Protonix] 40 mg tablet,delayed release (DR/EC) 40 mg PO BID Qty: 60 2RF metoprolol succinate 25 mg Tablet Extended Release 24 Hr 25 mg PO BID 30 Days Qty: 60 0RF Continued atorvastatin 10 mg tablet 10 mg PO DAILY hydralazine 25 mg tablet 25 mg PO TID multivitamin Tablet 1 tab PO DAILY insulin glargine [Lantus Solostar U-100 Insulin] 100 unit/mL (3 mL) insulin pen 10 unit subcut 1200 Patient Comments: pt stated he has not taken lantus for several days gabapentin 300 mg Capsule 300 mg PO DAILY Patient Comments: PT STATES THEY THINK THEY ARE ON THIS MEDICATION. Held dapagliflozin propanediol [Farxiga] 10 mg Tablet 10 mg PO DAILY Hold Instructions: Hold it because of MALIK. metformin 500 mg tablet extended release 24 hr 500 mg PO BID Hold Instructions: Hold at least 1 week . Discontinue if creatinine clearance less than 30 mill per minute Patient Comments: PT STATES THEY TAKE THIS ONCE DAILY. Discontinued omeprazole 40 mg capsule,delayed release(DR/EC) 40 mg PO DAILY hydrochlorothiazide 12.5 mg tablet 12.5 mg PO DAILY amlodipine 5 mg tablet 5 mg PO DAILY ramipril 10 mg capsule 10 mg PO BID potassium chloride 10 mEq tablet,ER particles/crystals 20 meq PO DAILY Patient Comments: PT STATES THEY THINK THEY ARE ON THIS MEDICATION. famotidine 40 mg tablet 40 mg PO DAILY metoprolol succinate 50 mg tablet extended release 24 hr 50 mg PO BID Qty: 60 11RF Referrals / Follow Up: Dk Pathak [employer] LO[employer]ER RESIDENTIAL DRIVER, [employer] RESIDENTIAL DRIVER-C [Primary Care Provider] - Disposition Disposition (needs filled in before D/C Order can be placed): Jail Facility
[2023-05-20 09:35] VITALS: BP 105/68; PULSE 92; RESP 18; TEMP 36.7; O2SAT 95
[2023-05-20] MEDS: Pantoprazole Sodium 40 MG in 0.9% Normal Saline (100mL MB+) 100 ML 330 MG IV (09:40)
[2023-05-20] MEDS: Loperamide 2 MG Capsule PO (09:40)
[2023-05-20] MEDS: 0.9% Saline Lock 10 ML Syringe IV (09:40)
--- NOTE | 2023-05-20 09:40 | DS.PCM_ITS ---
Providers Date of Admission: 05/09/23 Date of Discharge: 05/20/23 Primary Care Physician: Dk Pathak, BLEACHING MACHINE OPERATOR-C Consultations 05/10/23 09:57 Consult: Sea Captain / Pulmonary Medicine Routine Consulting Provider: Intensivists/Pulmonary Med Reason for Consult: sepsis EMERGENT Consult: No Notified: Yes Date Notified: 05/10/23 Time Notified: 09:57 Method of Notification: Text 05/13/23 08:44 Consult: Nephrology Routine Consulting Provider: Maya Melo Reason for Consult: MALIK EMERGENT Consult: No Notified: Yes Date Notified: 05/13/23 Time Notified: 08:44 Method of Notification: Text Comments:: Notified BLEACHING MACHINE OPERATOR Reason For Visit: ACUTE CYSTITIS, WITHOUT HEMATURIA & IMPENDING Diagnosis Discharge Diagnosis (1) MALIK (acute kidney injury): Status: Acute Code(s): N17.9 - Acute kidney failure, unspecified (2) HTN (hypertension): Status: Chronic Code(s): I10 - Essential (primary) hypertension Plan Patient is a 62-year-old gentleman with multiple comorbidities admitted with acute alcohol withdrawal. Patient had recently been discharged from the hospital To father's home after he refused to SNF . He was also found to be hypotensive with acute cystitis on admission. 1. Sepsis ? Secondary to acute cystitis as evidenced by the presence of an infection, SIRS criteria as well as evidence of endorgan dysfunction with acute kidney injury as well as hypotension. Sepsis protocol initiated ordered lactic acid level blood cultures patient already on Rocephin patient resuscitated with IV fluids per protocol transferred to the intensive care unit in guarded ordered for PICC line. If patient does not respond to fluid resuscitation plan will be to start patient on norepinephrine. Consult placed to music publicist 05/16: Sepsis has resolved. 2. Chronic alcohol dependence with acute alcohol withdrawal ? Admitted to regular nursing floor managed with phenobarb taper.? Patient progressed being monitored with CIWA protocol 05/16: Earlier phenobarbital discontinued as patient was getting lethargic and delirious. 3. Acute kidney injury ? Patient started on IV fluids subsequent monitoring of electrolytes ordered ? 05/12/2023; patient kidney function continues to worsen will continue with IV fluids. Patient was on vancomycin and Zosyn vancomycin discontinued given worsening kidney ?05/13/2023 consult was placed to nephrology given worsening kidney function. Renal ultrasound obtained the day prior came back unremarkable ? 05/14/2023; kidney function continues to worsen continuous monitoring ordered ? 05/15/2023 kidney function continues to worsen. ? 05/16/2023 patient kidney function appears to be stable at this point 05/16: Creatinine during the hospital stay increased from 1.5-2.93 and then stabilizing at 2.61. 05/17: Patient was started on furosemide 40 mg IV daily yesterday by kitchen hand. BMP from today pending. 05/18: On diuretic. Follow-up with kitchen hand in 2 weeks 4. Mild hyponatremia ? Secondary to chronic alcohol abuse monitoring sodium corrected to 148. 5. Coagulopathy ? Secondary to chronic liver disease from patient chronic alcohol use 6. Acute transaminitis ? Monitoring 7.? Diabetes mellitus type II -Continue patient on his home regimen in addition to Accu-Cheks before meals and at bedtime with sliding scale coverage 8.? Sick sinus syndrome ? Status post pacemaker placement 9.? History of ascending aortic dissection ? Status post repair 10.? Valvular heart disease - history of aortic valve replacement with bioprosthetic material 11.? Hypertension - Blood pressure low on admission antihypertensives held 12. Dyslipidemia -Patient is on statin therapy, continued at home dose 13. GERD ? On famotidine 14. Thrombocytopenia ? Patient has had a precipitous drop in his platelet count. No bleeding at this point we will continue to monitor 05/14/2023 platelet count trending up we will continue with monitoring 15. Acute on severe anemia of chronic disease ? Suspected to be secondary to anemia of chronic disorder monitoring H&H with plans to transfuse if patient becomes symptomatic or hemoglobin falls below 7 05/17: H&H 8/25%. Platelet count 233,000. 05/18: H&H dropped to 7.0/21%. 1 unit of PRBC ordered. Iron workup shows ferritin high 419, iron saturation 62% low serum iron and TIBC, suggestive of anemia of chronic disease. 05/19: Hemoglobin 8.5 after 1 unit of PRBC transfusion. Right arm PICC line not working therefore pulled out and discontinued. Clinically right arm and axillary region is soft and no induration therefore clinically DVT not suspected. 16. DVT prophylaxis ? SCDs only given that patient coagulopathic 17. Physical deconditioning - Requested for PT OT eval and social work assistant to assist with discharge planning 18. Anasarca with moderate chronic protein calorie malnutrition: Patient has anasarca therefore BMI is elevated 25.8 kg/m? but patient has poor skin condition with loss of subcutaneous fat and mild decreased muscle bulk in extremities and weakness at knee and hip joints 05/13. Therefore I agree that patient has moderate chronic malnutrition. ? Suspected to be secondary to hypoalbuminemia given patient chronic liver disease. Patient did receive IV Lasix 80 mg x 1 05/19: Patient is discharged on furosemide 40 mg daily and spironolactone 12.5 mg daily with holding parameters. Advised to check lab, BMP twice weekly. Discharge medication reconciliation done. Discharge follow-up instructions completed. Discharge process discussed with the patient and all questions were answered to patient's satisfaction. Follow with PCP in 1 to 2 weeks Total time spent, exact 35 minutes on discharge meds reconciliation, examination, coordination of care with nurses and ancillary staff, review of imaging and blood test and discussion with the patient on follow-up instructions. Medications at Discharge Home Medications atorvastatin 10 mg tablet 10 mg PO DAILY CHOLESTEROL 10/17/20 hydralazine 25 mg tablet 25 mg PO TID BP 10/17/20 dapagliflozin propanediol 10 mg tablet (Farxiga) 10 mg PO DAILY DIABETES 09/30/21 multivitamin 1 tab PO DAILY SUPPLEMENT 11/11/21 gabapentin 300 mg capsule 300 mg PO DAILY NEUROPATHY 11/14/22 insulin glargine 100 unit/mL (3 mL) subcutaneous pen (Lantus Solostar U-100 Insulin) 10 unit subcut 1200 DIABETES 11/14/22 metformin 500 mg tablet,extended release 24 hr 500 mg PO BID DIABETES 11/15/22 L.acidophil,salivari-Bifido bifidum-Strep thermoph 175 mg capsule 2 cap PO BID #0 caps 05/20/23 dicyclomine 10 mg capsule 20 mg (2 x 10 mg) PO Q6H PRN PRN abdominal discomfort #0 caps 05/20/23 folic acid 1 mg tablet 1 mg PO DAILY@0800 #0 tabs 05/20/23 furosemide 40 mg tablet 40 mg PO DAILY #30 tabs 05/20/23 insulin lispro 100 unit/mL subcutaneous pen (Humalog KwikPen (U-100) Insulin) See Protocol subcut ACHS #0 mL 05/20/23 metoprolol succinate 25 mg tablet,extended release 24 hr 25 mg PO BID 30 days #60 tabs 05/20/23 pantoprazole 40 mg tablet,delayed release (Protonix) 40 mg PO BID #60 tabs 05/20/23 spironolactone 25 mg tablet 12.5 mg (1/2 x 25 mg) PO DAILY #30 tabs 05/20/23 thiamine HCl (vitamin B1) 100 mg tablet (Vitamin B-1) 100 mg PO DAILYCM #0 tabs 05/20/23 Physical Exam Narrative Seen and examined. No acute issues overnight but patient feels very weak. Patient had 1 unit of PRBC yesterday. Hemoglobin increased appropriately to 8.5 g. Right arm PICC line not working, order to discontinue it No change in swelling of upper and lower extremities. Physical exam: General: Alert, Oriented x3, Cooperative HEENT: Atraumatic, PERRLA, EOMI, Normocephalic Oral: Oral mucosa moist. No Gingival or Mucosal Lesions/ Ulcerations Neck: Supple, No JVD, Negative Carotid Bruits Chest wall/Lungs: Air entry diminished in bilateral lung bases. No crepitation/rhonchi Cardiovascular: Paced rhythm. Mechanical valve click. Systolic murmur. Normal S1, Normal S2 Abdomen: Bowel Sounds Present, Soft, Non Tender, Non-Distended : No dysuria. No renal angle tenderness. No suprapubic tenderness. Extremities: Right arm PICC line. Bilateral lower extremity and upper e xtremities subcutaneous edema. Capillary Refill Less than 3 Seconds Skin: Subcutaneous ecchymosis/bruising probably from PICC line. No palpable induration/hardness. Musculoskeletal: No Tenderness to Palpation of Joints or Extremities. ROM restricted muscle strength 4/5 and both knees and hip joints Neurological: Cranial nerves II-XII grossly intact, DTR 2+/4. No acute focal neurological deficit. Psych/Mental Status: Flat affect. Weight / BMI Weight Weight: 185 lb 6.54 oz Body Mass Index (BMI) 25.8 ABG / Lab / Microbiology Data 05/20/23 06:10 05/20/23 06:10 Laboratory: Laboratory Results - last 24 hr 05/19/23 07:50: Blood Type O NEGATIVE, Antibody Screen NEGATIVE, Crossmatch See Detail 05/19/23 11:21: POC Glucose 248 H 05/19/23 16:11: POC Glucose 253 H 05/19/23 21:05: POC Glucose 323 H 05/20/23 06:10: WBC 12.2 H, RBC 2.59 L, Hgb 8.5 L, Hct 26.4 L, MCV 101.9 H, MCH 32.8 H, MCHC 32.2, RDW Std Deviation 68.9 H, RDW Coeff of Kalpana 18.5 H, Plt Count 264, MPV 11.9, Immature Gran % (Auto) 0.800, Neut % (Auto) 82.4 H, Lymph % (Auto) 9.8 L, Osborne % (Auto) 5.6, Eos % (Auto) 0.7, Baso % (Auto) 0.7, Absolute Neuts (auto) 10.1 H, Absolute Lymphs (auto) 1.20, Nucleated RBC % 0, Differential Comment SCANNED, Anisocytosis 1+, Sodium 139, Potassium 4.7, Chloride 109 H, Carbon Dioxide 28.0, BUN 19 H, Creatinine 2.08 H, Estim Creat Clear Calc 40.22, Est GFR (MDRD) Af Amer 42 L, Est GFR (MDRD) Non-Af 35 L, BUN/Creatinine Ratio 9.1 L, Glucose 145 H, Calcium 7.8 L, Phosphorus 3.1, Albumin 1.4 L 05/20/23 06:26: POC Glucose 141 H Microbiology: Microbiology 05/16/23 12:35 Stool Stool Occult Blood (IBIS) - Final Occult Blood Positive 05/10/23 12:40 Blood Culture (Wb) - Arm Left Blood Culture - Final No growth in 5 days. 05/10/23 10:35 Blood Culture (Wb) - Left Hand Blood Culture - Final No growth in 5 days. 05/10/23 17:30 Urine Catheter - Catheter Urine Culture - Final Escherichia coli 05/12/23 17:50 Stool Stool Occult Blood (IBIS) - Final Occult Blood Positive 05/09/23 21:31 Urine, Clean Catch Legionella Antigen - Final 05/09/23 21:31 Urine, Clean Catch Streptococcus pneumoniae Antigen (M - Final Meaningful Use Info Meaningful Use Diagnoses (Choose all that apply): None applicable Discharge Plan Admission Admit Date/Time: 05/09/23 20:52 Primary Reason for Your Visit: Sepsis, MALIK Attending Provider: Refugio Rojas Primary Care Provider: Dk Pathak BLEACHING MACHINE OPERATOR Consulting Providers: Conrado Pro; Maya Melo; Conrado Morel Discharge Orders/Prescriptions Prescriptions: New thiamine HCl (vitamin B1) [Vitamin B-1] 100 mg Tablet 100 mg PO DAILYCM Qty: 0 0RF L.acidoph,saliva-B.bif-S.therm 175 mg Capsule 2 cap PO BID Qty: 0 0RF folic acid 1 mg Tablet 1 mg PO DAILY@0800 Qty: 0 0RF insulin lispro [Humalog KwikPen Insulin] 100 unit/mL Insulin Pen See Protocol subcut ACHS Qty: 0 0RF Protocol: 4. Sliding Scale Insulin High-Med Dosing Condition: 150-199 mg/dl = 2 units Condition: 200-259 mg/dl = 4 units Condition: 260-324 mg/dl = 6 units Condition: 325-374 mg/dl = 8 units Condition: 375-409 mg/dl = 10 units Condition: 410-449 mg/dl = 11 units Condition: Greater than 449 call physician Protocol Text: - Use for Total Daily Dose of Insulin 56-80 units - Patient who are insulin resistant or septic HIGH MEDIUM DOSING ALGORITHM furosemide 40 mg tablet 40 mg PO DAILY Qty: 30 0RF spironolactone 25 mg tablet 12.5 mg PO DAILY Qty: 30 0RF Rx Instructions: Hold if serum potassium more than 5.1. dicyclomine 10 mg Capsule 20 mg PO Q6H PRN PRN (Reason: abdominal discomfort) Qty: 0 0RF pantoprazole [Protonix] 40 mg tablet,delayed release (DR/EC) 40 mg PO BID Qty: 60 2RF metoprolol succinate 25 mg Tablet Extended Release 24 Hr 25 mg PO BID 30 Days Qty: 60 0RF Continued atorvastatin 10 mg tablet 10 mg PO DAILY hydralazine 25 mg tablet 25 mg PO TID multivitamin Tablet 1 tab PO DAILY insulin glargine [Lantus Solostar U-100 Insulin] 100 unit/mL (3 mL) insulin pen 10 unit subcut 1200 Patient Comments: pt stated he has not taken lantus for several days gabapentin 300 mg Capsule 300 mg PO DAILY Patient Comments: PT STATES THEY THINK THEY ARE ON THIS MEDICATION. Held dapagliflozin propanediol [Farxiga] 10 mg Tablet 10 mg PO DAILY Hold Instructions: Hold it because of MALIK. metformin 500 mg tablet extended release 24 hr 500 mg PO BID Hold Instructions: Hold at least 1 week . Discontinue if creatinine clearance less than 30 mill per minute Patient Comments: PT STATES THEY TAKE THIS ONCE DAILY. Discontinued omeprazole 40 mg capsule,delayed release(DR/EC) 40 mg PO DAILY hydrochlorothiazide 12.5 mg tablet 12.5 mg PO DAILY amlodipine 5 mg tablet 5 mg PO DAILY ramipril 10 mg capsule 10 mg PO BID potassium chloride 10 mEq tablet,ER particles/crystals 20 meq PO DAILY Patient Comments: PT STATES THEY THINK THEY ARE ON THIS MEDICATION. famotidine 40 mg tablet 40 mg PO DAILY metoprolol succinate 50 mg tablet extended release 24 hr 50 mg PO BID Qty: 60 11RF Referrals / Follow Up: Maya Melo MD [Med Staff - Consulting] - Within 2 Weeks Denys Pearson MD [Med Staff - Active Staff] - Within 1 Month (History of ascending aortic dissection, sick sinus syndrome status post pacemaker and valvular heart disease) Dk Pathak BLEACHING MACHINE OPERATOR, BLEACHING MACHINE OPERATOR-C [Primary Care Provider] - Disposition Disposition (needs filled in before D/C Order can be placed): Half-Way Facility Charges/Coding Visit Charges Inpatient E&M: 51821 Disch Hosp >30min
[2023-05-20] MEDS: Furosemide 40 MG/4 ML Vial IV (09:41)
[2023-05-20 09:44] VITALS: BP 105/68
--- NOTE | 2023-05-20 10:08 | PCM.PN.REN ---
Subjective Subjective Resting in bed. No overnight events. Possibly to be discharged today. Denies any complaints. Objective Data Objective Data Vital Signs: Vital Signs Temp Pulse Resp BP Pulse Ox O2 Del Method O2 Flow Rate 97.5 F L 68 18 105/68 96 Room Air 2 05/20/23 03:38 05/20/23 03:38 05/20/23 03:38 05/20/23 09:44 05/20/23 07:30 05/20/23 07:54 05/18/23 07:20 FiO2 25 05/15/23 11:10 Oxygen Flow Rate (L/min) 2 Oxygen Delivery Method Room Air Weight: 84.1 kg Body Mass Index (BMI) 25.8 Intake & Output: Intake and Output for Last 24 Hours 05/18/23 05/19/23 05/20/23 23:59 23:59 23:59 Intake Total 1870 / 1870 1140 / 1440 300 / 300 Output Total 4900 / 5350 5155 / 7005 3025 / 3025 Balance -3030 / -3480 -4015 / -5565 -2725 / -2725 Lab / Micro Data 05/20/23 06:10 05/20/23 06:10 Labs: Laboratory Results - last 24 hr 05/19/23 07:50: Blood Type O NEGATIVE, Antibody Screen NEGATIVE, Crossmatch See Detail 05/19/23 11:21: POC Glucose 248 H 05/19/23 16:11: POC Glucose 253 H 05/19/23 21:05: POC Glucose 323 H 05/20/23 06:10: WBC 12.2 H, RBC 2.59 L, Hgb 8.5 L, Hct 26.4 L, MCV 101.9 H, MCH 32.8 H, MCHC 32.2, RDW Std Deviation 68.9 H, RDW Coeff of Kalpana 18.5 H, Plt Count 264, MPV 11.9, Immature Gran % (Auto) 0.800, Neut % (Auto) 82.4 H, Lymph % (Auto) 9.8 L, Steele % (Auto) 5.6, Eos % (Auto) 0.7, Baso % (Auto) 0.7, Absolute Neuts (auto) 10.1 H, Absolute Lymphs (auto) 1.20, Nucleated RBC % 0, Differential Comment SCANNED, Anisocytosis 1+, Sodium 139, Potassium 4.7, Chloride 109 H, Carbon Dioxide 28.0, BUN 19 H, Creatinine 2.08 H, Estim Creat Clear Calc 40.22, Est GFR (MDRD) Af Amer 42 L, Est GFR (MDRD) Non-Af 35 L, BUN/Creatinine Ratio 9.1 L, Glucose 145 H, Calcium 7.8 L, Phosphorus 3.1, Albumin 1.4 L 05/20/23 06:26: POC Glucose 141 H Micro: Microbiology 05/16/23 12:35 Stool Stool Occult Blood (IBIS) - Final Occult Blood Positive 05/10/23 12:40 Blood Culture (Wb) - Arm Left Blood Culture - Final No growth in 5 days. 05/10/23 10:35 Blood Culture (Wb) - Left Hand Blood Culture - Final No growth in 5 days. 05/10/23 17:30 Urine Catheter - Catheter Urine Culture - Final Escherichia coli 05/12/23 17:50 Stool Stool Occult Blood (IBIS) - Final Occult Blood Positive 05/09/23 21:31 Urine, Clean Catch Legionella Antigen - Final 05/09/23 21:31 Urine, Clean Catch Streptococcus pneumoniae Antigen (M - Final Rhythm Strip Rhythm Strip: Sinus Rhythm Physical Exam Narrative Alert and oriented, no apparent distress S1, S2, RRR Lung sounds clear anteriorly. Abdomen soft, nontender ++Edema noted bilateral lower legs and arms, improving Indwelling Gillis with clear urine Assessment & Plan Assessment/Plan (1) MALIK (acute kidney injury): (2) HTN (hypertension): PLAN: Plan Impression/Plan: The patient is a 62-year-old man with past history of type 2 diabetes mellitus, hypertension, CAD, aortic valve replacement, sick sinus syndrome status post PPM, polysubstance use disorder, and hyperlipidemia. The patient presents to the hospital on 05/09/2023 with abdominal pain. The patient was diagnosed with alcohol withdrawal and severe sepsis attributed to right lower lobe pneumonia. Nephrology is following for acute kidney injury. - Acute kidney injury with normal baseline serum creatinine (1.00 mg/dL (November 2022)). MALIK secondary to ischemic ATN related to sepsis. Serum creatinine was 1.50 mg/dL on presentation on 05/09/2023 and peaked at 2.93 mg/dL on 05/14/2023. Creatinine improved while on IV Lasix, today creatinine 2.08. Urine output ~ 5 L when on IV Lasix. Renal ultrasound unremarkable. - Hypertension. Blood pressure is acceptable -Hemoglobin improved, patient received 1 unit PRBC 05/18. -Discharge planning in progress, possible discharge today. Ok for discharge per renal. To be discharged back on spironolactone and furosemide. Will arrange for hospital follow-up.
--- NOTE | 2023-05-20 10:13 | CASEMGMT ---
BLANKA completed a 7000 as insurance is requesting this. BLANKA sent it to Alexy Schuster. Ashley Ward COMMUNITY HEALTH COUNSELOR RADIAL SAW OPERATOR
--- NOTE | 2023-05-20 10:33 | CASEMGMT ---
Social Work This worker sent therapy notes from 05/19/23 to Alexy Schuster via [facility]. Neelam ISSA
[2023-05-20] MEDS: Insulin Lispro 100 UNIT/ML INSULN.PEN SC (11:13)
[2023-05-20] MEDS: Acetaminophen 500 MG Tablet 1000 MG PO (11:13)
[2023-05-20 12:03] LABS: Bedside Glucose 265 mg/dL (74-106)
--- NOTE | 2023-05-20 12:55 | CASEMGMT ---
Patient was approved to go to [facility]. BLANKA notified physician. SW completed a 7000 in [facility] system. BLANKA called [facility] and arranged for patient to get picked up at 1400 via cot. BLANKA sent orders and greens picker time to [facility] via [employer]. BLANKA notified RN, litigation legal secretary, and patient's daughter Terra. All in agreement with plan. Plan: d/c to [facility] under intermediate level of care on a convalescent stay. Physicians will transport patient via cot. Ashley Ward FAVOR MAKERJevon STONE
[2023-05-20 13:15] VITALS: BP 107/73; PULSE 74; RESP 16; TEMP 36.5; O2SAT 96
[2023-05-20] MEDS: Nystatin Powder 15gm Bottle 1 APPLIC TOPICAL (13:21)
--- NOTE | 2023-05-20 13:34 | NURSING ---
Report called to nurse Lisa at [facility]. structural steel erection supervisor time is 1400.
== END 2023-05-20 13:55 | disposition skilled nursing facility (03) | DRG 720 ==
LOC: ED 20:40 → MS3 21:07 → ICU 05-10 10:27 → PCU 05-13 18:02
PROVIDERS: Family Medicine; Internal Medicine; Internal Medicine Critical Care Medicine; Nurse Practitioner; Nurse Practitioner Adult Health; Admitting Provider Internal Medicine; Emergency Provider Emergency Medicine; PCP Nurse Practitioner Family; Visit Provider Internal Medicine
DX: A41.9 Sepsis, unspecified organism (principal); N17.0 Acute kidney failure with tubular necrosis; D68.9 Coagulation defect, unspecified; D69.6 Thrombocytopenia, unspecified; D63.8 Anemia in other chronic diseases classified elsewhere; E87.1 Hypo-osmolality and hyponatremia; E87.20 Acidosis, unspecified; J18.9 Pneumonia, unspecified organism; E11.40 Type 2 diabetes mellitus with diabetic neuropathy, unspecified; K72.90 Hepatic failure, unspecified without coma; F10.239 Alcohol dependence with withdrawal, unspecified; I10 Essential (primary) hypertension; I49.5 Sick sinus syndrome; K86.1 Other chronic pancreatitis; R65.20 Severe sepsis without septic shock; K74.60 Unspecified cirrhosis of liver; D53.9 Nutritional anemia, unspecified; E88.09 Other disorders of plasma-protein metabolism, not elsewhere classified; J90 Pleural effusion, not elsewhere classified; E78.5 Hyperlipidemia, unspecified; K21.9 Gastro-esophageal reflux disease without esophagitis; I25.10 Atherosclerotic heart disease of native coronary artery without angina pectoris; G47.33 Obstructive sleep apnea (adult) (pediatric); R19.5 Other fecal abnormalities; K86.0 Alcohol-induced chronic pancreatitis; N30.00 Acute cystitis without hematuria; R18.8 Other ascites; Z91.199 Patient's noncompliance with other medical treatment and regimen due to unspecified reason; Z53.29 Procedure and treatment not carried out because of patient's decision for other reasons; Z79.84 Long term (current) use of oral hypoglycemic drugs; R09.02 Hypoxemia; Z87.891 Personal history of nicotine dependence; Z95.0 Presence of cardiac pacemaker; H91.90 Unspecified hearing loss, unspecified ear; B96.20 Unspecified Escherichia coli [E. coli] as the cause of diseases classified elsewhere; Z68.26 Body mass index [BMI] 26.0-26.9, adult; Y90.9 Presence of alcohol in blood, level not specified
CPT/HCPCS: 36415; 36569; 36600; 71046; 74177; 76770; 80048; 80053; 80069; 80076; 80307; 81001; 82140; 82274; 82607; 82728; 82803; 82962; 83540; 83550; 83605; 83690; 83735; 84100; 84134; 84443; 85025; 85045; 85610; 86850; 86900; 86901; 86920; 86922; 87040; 87077; 87086; 87088; 87186; 87449; 87641; 93005; 94002; 94003; 94668; 94762; 97162; 97166; 97530; 97535; 97802; 97803; 99252; 99284; 99406; J7030; J7040; J7050; P9016; P9047; Q9967; A4216; G0463; J1940; J2405

== ENCOUNTER 2023-06-27 13:08 | Emergency (ER) | payer MEDICAID, SELFPAY ==
[2023-06-27 13:09] VITALS: BP 155/113; PULSE 115; RESP 18; TEMP 36.9; O2SAT 100; BMI 19.1
--- NOTE | 2023-06-27 13:43 | US_ITS ---
INDICATION: pain, stones EXAMINATION: Ultrasound US Abdomen Limited (quadrant) TECHNIQUE: Huizar scale and color doppler imaging was performed of the right upper quadrant. COMPARISON: None. FINDINGS: LIVER: Liver echogenicity appears increased suggesting diffuse parenchymal liver disease, likely steatosis. No focal hepatic lesion. There is no free fluid. GALLBLADDER AND BILIARY TREE: The gallbladder is quite distended with normal wall thickness. No evidence of gallstones. Positive ultrasound Hightower sign is reported. No pericholecystic fluid. The proximal common bile duct measures 6 mm in diameter which is top normal size. No evidence of an obstructing stone or mass . Right kidney: Normal size without hydronephrosis. PANCREAS: Pancreas is obscured by overlying bowel gas. US/Gallbladder IMPRESSION: Distended gallbladder and common bile duct without evidence of an obstructing stone or mass. MRCP follow-up recommended if clinically indicated. Electronically Signed: Donato Liriano MD at 15:40 EDT ,
--- NOTE | 2023-06-27 13:44 | ED.VIS.GI ---
HPI HPI - GI History of Present Illness Chief Complaint: Abd Pain Informant: patient Narrative Narrative: Patient presents with epigastric pain going into the right upper quadrant over the last 2 days and worse. It has been present for months is not sure exactly how long. Tends to get worse when he eats it was appetites been very poor for the last month or 2. He is a heavy alcohol drinker, but he states on average every other day. His last drink was 2 days ago and he denies having any withdrawal symptoms. He states for the past 2 days he has been experiencing some black stools which is new. No blood. No nausea or vomiting. No fevers or chills. No confusion, jaundice, pruritus, back pain. [facility] Medical History (Updated 06/27/23 @ 16:[address] Carlos Augustin MD) MALIK (acute kidney injury) Seizures Alcoholic hepatitis Chronic pancreatitis Gastric wall thickening Alcohol dependence Abdominal ascites Anxiety Diabetes Pancreatitis Myocardial infarct Pacemaker AAA (abdominal aortic aneurysm) Admitted to alcohol detoxification center Alcohol abuse Hx of hypercholesterolemia History of diabetes mellitus Alcohol dependence Substance abuse Smoker Alcoholism Right bundle branch block (RBBB) Non-sustained ventricular tachycardia Thoracic aortic aneurysm SVT (supraventricular tachycardia) Ascending aortic dissection (~2005) Pure hypercholesterolemia Adrenal nodule Hiatal hernia Left carotid bruit Cardiac pacemaker in situ (~06/2016) Essential hypertension Pacemaker Sick sinus syndrome Tobacco use HTN (hypertension) Diabetes mellitus, type II Home Medications ?Medication ?Instructions ?Recorded ?Last Taken ?Type atorvastatin 10 mg tablet 10 mg PO DAILY CHOLESTEROL 10/17/20 04/19/23 History hydralazine 25 mg tablet 25 mg PO TID BP 10/17/20 04/19/23 History dapagliflozin propanediol 10 mg 10 mg PO DAILY DIABETES 09/30/21 04/19/23 History tablet (Farxiga) multivitamin 1 tab PO DAILY SUPPLEMENT 11/11/21 11/10/21 History gabapentin 300 mg capsule 300 mg PO DAILY NEUROPATHY 11/14/22 Unknown History insulin glargine 100 unit/mL (3 10 unit subcut 1200 DIABETES 11/14/22 04/19/23 History mL) subcutaneous pen (Lantus Solostar U-100 Insulin) metformin 500 mg tablet,extended 500 mg PO BID DIABETES 11/15/22 04/19/23 History release 24 hr L.acidophil,salivari-Bifido 2 cap PO BID #0 caps 05/20/23 Unknown Rx bifidum-Strep thermoph 175 mg capsule dicyclomine 10 mg capsule 20 mg (2 x 10 mg) PO Q6H PRN PRN 05/20/23 Unknown Rx abdominal discomfort #0 caps folic acid 1 mg tablet 1 mg PO DAILY@0800 #0 tabs 05/20/23 Unknown Rx furosemide 40 mg tablet 40 mg PO DAILY #30 tabs 05/20/23 Unknown Rx insulin lispro 100 unit/mL See Protocol subcut ACHS #0 mL 05/20/23 Unknown Rx subcutaneous pen (Humalog KwikPen (U-100) Insulin) metoprolol succinate 25 mg 25 mg PO BID 30 days #60 tabs 05/20/23 Unknown Rx tablet,extended release 24 hr pantoprazole 40 mg tablet,delayed 40 mg PO BID #60 tabs 05/20/23 Unknown Rx release (Protonix) spironolactone 25 mg tablet 12.5 mg (1/2 x 25 mg) PO DAILY #30 05/20/23 Unknown Rx tabs thiamine HCl (vitamin B1) 100 mg 100 mg PO DAILYCM #0 tabs 05/20/23 Unknown Rx tablet (Vitamin B-1) hydrocodone-acetaminophen 5-325mg 1 tab PO TID PRN 06/27/23 Unknown History 5mg-325mg ondansetron 8 mg disintegrating 8 mg PO Q8H PRN nausea and 06/27/23 Unknown Rx tablet vomiting #20 tabs pantoprazole 40 mg tablet,delayed 40 mg PO BID #60 tabs 06/27/23 Unknown Rx release Allergy/AdvReac Type Severity Reaction Status Date / Time No Known Allergies Allergy Verified 05/09/23 13:37 Family History Father CAD (coronary artery disease) Mother Dementia Surgical History (Updated 05/28/23 @ 00:32 by Lamar Mcintyre) H/O cardiac catheterization History of aortic aneurysm repair (~2016) History of cataract surgery History of hernia repair History of aortic valve replacement with bioprosthetic valve (~2016) H/O aortic valve replacement Social History (Updated 05/09/23 @ 13:38 by Myra Nova) household members: family housing: house Smoking Status: Current every day smoker tobacco type: cigarettes alcohol intake: current alcohol intake frequency: 0-2 drinks per day details: Reports currently ~ 2 tall boys daily. substance use type: former substance user caffeine: Yes Type: coffee Number of servings: 3 ROS ROS ED Constitutional Constitutional ED: Denies chills or fever(s) Eyes Eyes: Denies change in vision or diplopia ENT ENT ED: Denies rhinorrhea or sore throat Cardiovascular Cardiovascular: Denies chest pain or palpitations Respiratory/Chest Respiratory/Chest: Denies cough or dyspnea Gastrointestinal Gastrointestinal: Reports abdominal pain and melena; Denies diarrhea, hematochezia, nausea or vomiting Genitourinary Genitourinary ED: Denies dysuria or hematuria Musculoskeletal Musculoskeletal: Denies back pain or neck pain Integumentary Denies abscess or rash Neurologic Neurologic: Denies headache(s), paresthesias or weakness Psychiatric Psychiatric: Denies anxiety or suicidal thoughts EXAM Physical Exam Const Vital Signs: 06/27/23 13:09 06/27/23 13:20 06/27/23 15:09 Temperature 98.4 F Temperature Source Oral Pulse Rate 115 H 88 Respiratory Rate 18 13 Respiratory Effort Normal Non-Labored Respiratory Pattern Normal Blood Pressure 155/113 H 150/87 H Blood Pressure Mean 127 108 Pulse Ox 100 100 Oxygen Delivery Method Room Air Positive well nourished and well developed General Appearance ED: well developed and NAD HEENT Reports moist mucous membranes normocephalic and atraumatic Eyes PERRL and EOMs intact bilaterally Neck full ROM and supple Resp normal respiratory effort and clear to auscultation bilaterally Cardio regular rate, regular rhythm and no murmurs GI non-distended GI Narrative: Tender right upper quadrant and epigastrium with positive Hightower otherwise benign abdomen. On rectal, no tenderness, light brown nonbloody stool. Auscultation: normoactive bowel sounds Palpation: soft Back/Spine no CVA tenderness General Back: other FROM Extremity normal to inspection General Extremety ED: Negative for edema, pulses abnormal or tenderness General Extremity: Negative for edema or pulses abnormal Neuro oriented x3, CN's II-XII intact bilaterally and no sensory deficits noted Sensorium / Orientation: awake and alert Motor Exam: strength 5/5 throughout Skin no rashes or lesions noted and no wounds MDM MDM MDM Narrative Medical decision making narrative: Differential here includes alcoholic gastritis with or without bleeding, peptic or duodenal ulcer disease, less likely to be esophageal varices since he is not having any hematemesis, also possibly acute cholecystitis; I reviewed a CT scan that he had a little over a month ago that was fairly unremarkable and since he has been having the symptoms since before that, I do not think we need to repeat a CT. He did have an abdominal ultrasound on 05/30/2021 that showed cholelithiasis. Therefore, in considering acute cholecystitis, I repeated his ultrasound, reviewed the images and report which I agree with, it is negative and actually shows no gallstones. Unknown significance of this, but with his lack of a leukocytosis at all, and normal liver enzymes I am comfortable letting him go. I discussed his medications with him. He states he pretty much stopped all of his medications. This includes the pantoprazole he used to take. He has not taken them for a while. With his alcohol use, I think that his symptoms are probably alcohol gastritis. Furthermore we did a Hemoccult of his stool and it is negative, and given this I am prescribing him pantoprazole given him some Bentyl and a GI cocktail prior to discharge and he can follow-up with his doctor. I am advising him to try to stop drinking alcohol, we had an extended conversation about this. 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 History & Record Review Additional record(s) reviewed:: Prior outpatient record Lab Data Attestation: I reviewed the patient's lab results. Labs: Laboratory Results - last 24 hr 06/27/23 13:54 WBC 6.3 RBC 3.03 L Hgb 10.1 L Hct 32.0 L MCV 105.6 H MCH 33.3 H MCHC 31.6 L RDW Std Deviation 60.9 H RDW Coeff of Kalpana 15.6 H Plt Count 250 MPV 10.4 Immature Gran % (Auto) 0.500 Neut % (Auto) 74.9 H Lymph % (Auto) 14.4 L Treasure % (Auto) 8.6 Eos % (Auto) 0.3 Baso % (Auto) 1.3 H Absolute Neuts (auto) 4.7 Absolute Lymphs (auto) 0.91 Nucleated RBC % 0 PT 21.5 H INR 1.9 Sodium 137 Potassium 3.8 Chloride 107 Carbon Dioxide 23.0 Anion Gap 7 BUN 12 Creatinine 1.70 H Estim Creat Clear Calc 40.59 Est GFR (MDRD) Af Amer 53 L Est GFR (MDRD) Non-Af 44 L BUN/Creatinine Ratio 7.1 L Glucose 160 H Calcium 8.2 L Total Bilirubin 0.30 AST 191 H ALT 46 Alkaline Phosphatase 134 H Total Protein 6.6 Albumin 2.1 L Globulin 4.5 H Albumin/Globulin Ratio 0.5 L Lipase < 10 L Radiography Diagnostic Testing: Clinical Impression(s) from Imaging Studies Gallbladder Ultrasound 06/27/23 13:43 IMPRESSION: Distended gallbladder and common bile duct without evidence of an obstructing stone or mass. MRCP follow-up recommended if clinically indicated. Electronically Signed: Donato Liriano MD at 15:40 EDT , Discharge Plan Triage Chief Complaint: Abd Pain Other Complaint: General Illness ED Provider: Carlos Augustin Dx/Rx/DC Orders Clinical Impression: Acute upper abdominal pain, Chronic alcohol abuse, Medically noncompliant, Alcoholic gastritis without bleeding, Alcohol cessation counseling Instructions: Alcoholism: Getting Help, ED Gastritis (Adult) Prescriptions: New pantoprazole 40 mg tablet,delayed release (DR/EC) 40 mg PO BID Qty: 60 0RF ondansetron 8 mg tablet,disintegrating 8 mg PO Q8H PRN (Reason: nausea and vomiting) Qty: 20 0RF No Action atorvastatin 10 mg tablet 10 mg PO DAILY hydralazine 25 mg tablet 25 mg PO TID dapagliflozin propanediol [Farxiga] 10 mg Tablet 10 mg PO DAILY multivitamin Tablet 1 tab PO DAILY insulin glargine [Lantus Solostar U-100 Insulin] 100 unit/mL (3 mL) insulin pen 10 unit subcut 1200 Patient Comments: pt stated he has not taken lantus for several days gabapentin 300 mg Capsule 300 mg PO DAILY Patient Comments: PT STATES THEY THINK THEY ARE ON THIS MEDICATION. metformin 500 mg tablet extended release 24 hr 500 mg PO BID Patient Comments: PT STATES THEY TAKE THIS ONCE DAILY. hydrocodone-acetaminophen 5-325 mg tablet 1 tab PO TID PRN thiamine HCl (vitamin B1) [Vitamin B-1] 100 mg Tablet 100 mg PO DAILYCM Qty: 0 0RF L.acidoph,saliva-B.bif-S.therm 175 mg Capsule 2 cap PO BID Qty: 0 0RF folic acid 1 mg Tablet 1 mg PO DAILY@0800 Qty: 0 0RF insulin lispro [Humalog KwikPen Insulin] 100 unit/mL Insulin Pen See Protocol subcut ACHS Qty: 0 0RF Protocol: 4. Sliding Scale Insulin High-Med Dosing Condition: 150-199 mg/dl = 2 units Condition: 200-259 mg/dl = 4 units Condition: 260-324 mg/dl = 6 units Condition: 325-374 mg/dl = 8 units Condition: 375-409 mg/dl = 10 units Condition: 410-449 mg/dl = 11 units Condition: Greater than 449 call physician Protocol Text: - Use for Total Daily Dose of Insulin 56-80 units - Patient who are insulin resistant or septic HIGH MEDIUM DOSING ALGORITHM furosemide 40 mg tablet 40 mg PO DAILY Qty: 30 0RF spironolactone 25 mg tablet 12.5 mg PO DAILY Qty: 30 0RF Rx Instructions: Hold if serum potassium more than 5.1. dicyclomine 10 mg Capsule 20 mg PO Q6H PRN PRN (Reason: abdominal discomfort) Qty: 0 0RF pantoprazole [Protonix] 40 mg tablet,delayed release (DR/EC) 40 mg PO BID Qty: 60 2RF metoprolol succinate 25 mg Tablet Extended Release 24 Hr 25 mg PO BID 30 Days Qty: 60 0RF Primary Care Provider: Care Physician,No Primary Referrals: Corrine Green [Non-Staff] - As soon as possible (Or your [place] metal furniture assembly supervisor, or your primary doctor if you have 1 already) [facility] [Non-Staff] - As soon as possible Print Language: Jamaican Disposition Disposition: Home, Self Care
[2023-06-27] MEDS: 0.9% Normal Saline (1000mL) 1,000 ML 999 ML IV (13:54)
[2023-06-27] MEDS: Morphine 4 MG/ML Syringe IV ×2 (13:55→14:46)
[2023-06-27] MEDS: Ondansetron 4 MG/2 ML Vial IV (13:55)
[2023-06-27 14:03] LABS: Absolute Lymphocyte Count 0.91 X10^3/uL (0.83-4.51); Absolute Neutrophil Count 4.7 X10^3/uL (2.0-7.7); Basophil# 0.08 X10^3/uL; Basophil% 1.3 % (0-1); Eosinophil# 0.02 X10^3/uL; Eosinophils% 0.3 % (0-5); Hemoglobin 10.1 g/dL (13.0-16.5); Lymphocyte # 0.91 X10^3/ul (0.83-4.51); Lymphocyte % 14.4 % (19-41); Mean Corp Hgb Conc 31.6 g/dL (32-36); Mean Corpuscular Hgb 33.3 pg (27.0-32.0); Mean Corpuscular Volume 105.6 fL (80-94); Mean Platelet Vol. 10.4 fl (6.2-12.0); Monocyte# 0.54 X10^3/uL; Monocyte% 8.6 % (0-10); NRBC Flagged by Analyzer 0 % (0-5); Neutrophil # 4.73 X10^3/uL (2.7-7.7); Neutrophil % 74.9 % (47-70); Platelet Count 250 K/mm3 (150-450); RBC Distribution Width CV 15.6 % (11.6-14.6); RBC Distribution Width SD 60.9 fl (35.1-43.9); Red Blood Count 3.03 M/mm3 (4.6-6.2); White Blood Count 6.3 K/mm3 (4.4-11.0)
[2023-06-27 14:11] LABS: International Normalized Ratio 1.9; Prothrombin Time (Protime)PT. 21.5 SECONDS (11.7-14.9)
[2023-06-27 14:20] LABS: ALB/GLOB Ratio 0.5 RATIO (0.9-2.4); AST(SGOT) 191 U/L (15-37); Alanine Aminotransfer ALT/SGPT 46 U/L (16-61); Albumin, Serum 2.1 g/dL (3.2-5.0); Alkaline Phosphatase 134 U/L (45-117); Anion Gap 7 (5-15); BUN 12 mg/dL (7-18); BUN/Creat Ratio 7.1 RATIO (10-20); Calcium,Total 8.2 mg/dL (8.5-10.1); Chloride 107 mmol/L (98-107); EST Glomerular Filtration Rate 44 mL/min (>60); Est Glom Filt Rate - Afr Amer 53 mL/min (>60); Estimated Creatinine Clearance 40.59 ml/min; Globulin 4.5 g/dL (2.2-4.2); Glucose 160 mg/dL (74-106); Lipase < 10 U/L (13-75); Potassium 3.8 mmol/L (3.5-5.1); Protein, Total 6.6 g/dL (6.4-8.2); Sodium Level 137 mmol/L (136-145)
[2023-06-27 15:09] VITALS: BP 150/87; PULSE 88; RESP 13; O2SAT 100
[2023-06-27] MEDS: Mag Hydrox/Al Hydrox/Simeth 30 ML UDC PO (16:16)
[2023-06-27] MEDS: Dicyclomine 10 MG Capsule 20 MG PO (16:16)
[2023-06-27] MEDS: Pantoprazole Sodium 40 MG Tablet PO (16:21)
[2023-06-27 16:22] VITALS: BP 140/80; PULSE 83; RESP 18; TEMP 36.6; O2SAT 99
== END 2023-06-27 16:27 | disposition home or self-care (01) ==
PROVIDERS: Emergency Provider Emergency Medicine; Visit Provider Emergency Medicine
DX: K29.20 Alcoholic gastritis without bleeding (principal); E11.9 Type 2 diabetes mellitus without complications; Z79.4 Long term (current) use of insulin; R10.13 Epigastric pain; F10.10 Alcohol abuse, uncomplicated; Z91.199 Patient's noncompliance with other medical treatment and regimen due to unspecified reason; R10.11 Right upper quadrant pain; I25.2 Old myocardial infarction; Z95.0 Presence of cardiac pacemaker; E78.00 Pure hypercholesterolemia, unspecified; I10 Essential (primary) hypertension; Z79.899 Other long term (current) drug therapy; Z79.84 Long term (current) use of oral hypoglycemic drugs; Z95.3 Presence of xenogenic heart valve; F17.210 Nicotine dependence, cigarettes, uncomplicated
CPT/HCPCS: 76705; 80053; 82274; 83690; 85025; 85610; 96361; 96374; 96375; 96376; 99284; J7030; J2405

== ENCOUNTER 2024-06-25 16:17 | Inpatient (IN) | payer MEDICAID, SELFPAY ==
[2024-06-25 16:17] VITALS: BP 134/98; PULSE 104; RESP 18; TEMP 37; O2SAT 98; BMI 26.6
--- NOTE | 2024-06-25 16:43 | CT_ITS ---
PROCEDURE: ABDOMEN/PELVIS W IV CONT ONLY 06/25/2024 REASON FOR EXAM: ABDOMINAL PAIN, DISTENTION, CONSTIPATION TECHNIQUE: Abdomen and pelvis CT with intravenous contrast. Coronal and Sagittal reconstruction series were provided. PATIENT PREPARATION: Per protocol ORAL CONTRAST TYPE: None. AMOUNT: mL CONTRAST: Omnipaque 350 VOLUME: 100 mL Not Provided Gauge IV One or more dose reduction techniques were used (e.g., Automated exposure control, adjustment of the mA and/or kV according to patient size, use of iterative reconstruction technique. COMPARISON: CT abdomen and pelvis 05/09/2023 FINDINGS: Lung bases: Moderate bilateral pleural effusion with atelectasis. Moderate cardiomegaly. Severe atherosclerotic calcifications. Liver: Mild hepatomegaly. Diffuse steatosis. Scattered simple cysts. Gallbladder: No ductal dilation. Gallbladder is unremarkable. Spleen: Normal size. Pancreas: Diffuse pancreatic atrophy with diffuse dystrophic calcifications, compatible with sequela of chronic pancreatitis. Diffuse ductal dilation. Adrenals: Unremarkable. Kidneys: Normal renal sizes. No hydronephrosis. Bladder: Urinary bladder is moderately distended. Reproductive Organs: No pelvic mass. Bowel: Small hiatal hernia. Gallbladder is collapsed. No bowel dilation. Diffuse small bowel and colonic wall thickening. Moderate colonic stool. Appendix is normal. Appendix: Normal Lymph nodes: No suspicious lymph node enlargement. Vasculature: Severe diffuse atherosclerotic calcifications are noted. Peritoneum / Retroperitoneum: Large abdominopelvic ascites. Bones: Degenerative changes of the spine. Soft tissue: Diffuse subcutaneous edema. CT/Abdomen/Pelvis W IV Cont ONLY IMPRESSION: 1. Diffuse small bowel and colonic wall thickening, likely secondary to ascites . 2. Large abdominopelvic ascites. 3. Hepatomegaly and diffuse steatosis. OVERALL FINAL ASSESSMENT: . LI-RADS is not meant to be used in patients <18 years or patients with cirrhosi s due to congenital hepatic fibrosis or due to vascular disorders, because these patients have a lower chance of developing HC C. Reading Location: [facility]
--- NOTE | 2024-06-25 16:58 | EDS_ITS ---
HPI History of Present Illness Chief Complaint: Abd Pain Narrative Narrative: Chief complaint and HPI: Abdominal pain, distention, constipation. 63-year-old male with past medical history of DM, aortic valve replacement, HTN, chronic alcohol abuse who presents for evaluation of abdominal pain, distention, constipation. History taken by patient as well as medical record. Patient has chronic history of abdominal pain. He has been seen in our emergency department multiple times for this. He states that for the past several months he has been having diarrhea in which he has had outpatient workup including EGD and colonoscopy in May. He states that there was no acute findings. Patient states 4 days ago his diarrhea stopped and he became constipated. He endorses diffuse abdominal pain and distention. Endorses decreased urine output and foul-smelling urine. Associated symptom is decreased p.o. intake. He denies any fever, chills, shortness of breath, chest pain, vomiting. Still endorses alcohol abuse. Review of systems: See HPI Medications: As listed on the chart Allergies: As listed on the chart PFSH: Per chart Vital signs: As listed on the chart. Reviewed. Physical exam: Gen: A&O x3, NAD Head: Normocephalic, atraumatic Eyes: No sclera icterus, conjunctiva clear ENT: Dry mucous membranes Neck: Trachea midline, No JVD CV: RRR, no murmurs, no peripheral edema Resp: Lungs CTA BL, no w/r/c GI: Abd soft, distended, tender to palpation diffusely, no rebound or rigidity : No CVA tenderness Musc: Full ROM, no deformity Skin: Warm, dry, multiple old ecchymosis on the body especially the abdomen from insulin injections Neuro: Alert, oriented, grossly intact, sensation intact Psych: Cooperative, appropriate mood and affect [facility] Medical History MALIK (acute kidney injury) Seizures Alcoholic hepatitis Chronic pancreatitis Gastric wall thickening Alcohol dependence Abdominal ascites Anxiety Diabetes Pancreatitis Myocardial infarct Pacemaker AAA (abdominal aortic aneurysm) Admitted to alcohol detoxification center Alcohol abuse Hx of hypercholesterolemia History of diabetes mellitus Alcohol dependence Substance abuse Smoker Alcoholism Right bundle branch block (RBBB) Non-sustained ventricular tachycardia Thoracic aortic aneurysm SVT (supraventricular tachycardia) Ascending aortic dissection (~2005) Pure hypercholesterolemia Adrenal nodule Hiatal hernia Left carotid bruit Cardiac pacemaker in situ (~06/2016) Essential hypertension Pacemaker Sick sinus syndrome Tobacco use HTN (hypertension) Diabetes mellitus, type II Home Medications ?Medication ?Instructions ?Recorded ?Last Taken ?Type atorvastatin 10 mg tablet 10 mg PO DAILY CHOLESTEROL 0 10/17/20 04/19/23 History hydralazine 25 mg tablet 25 mg PO TID BP 10/17/2001/01 History dapagliflozin propanediol 10 mg 10 mg PO DAILY DIABETE S 09/30/21 04/19/23 History tablet (Farxiga) Held on 05/20/23. Instructions: Hold it because of MALIK. multivitamin 1 tab PO DAILY SUPPLEMENT 11/10/21 History gabapentin 300 mg capsule 300 mg PO DAILY NEUROPATHY 1 Unknown History insulin glargine 100 unit/mL (3 10 unit subcut 1200 DI ABETES 11/14/22 04/19/23 History mL) subcutaneous pen (Lantus Solostar U-100 Insulin) metformin 500 mg tablet,extended 500 mg PO BID DIABETE S 11/15/22 04/19/23 History release 24 hr Held on 05/20/23. Instructions: Hold at least 1 week . Discontinue if creatinine clearance less than 30 mill per minute L.acidophil,salivari-Bifido 2 cap PO BID #0 caps 05/19 Unknown Rx bifidum-Strep thermoph 175 mg capsule dicyclomine 10 mg capsule 20 mg (2 x 10 mg) PO Q6H PRN PRN 05/20/23 Unknown Rx abdominal discomfort #0 caps folic acid 1 mg tablet 1 mg PO DAILY@0800 #0 tabs 0 05/20/23 Unknown Rx furosemide 40 mg tablet 40 mg PO DAILY #30 tabs 05/09 03/03 Unknown Rx insulin lispro 100 unit/mL See Protocol subcut ACHS #0 mL 05/20/23 Unknown Rx subcutaneous pen (Humalog KwikPen (U-100) Insulin) metoprolol succinate 25 mg 25 mg PO BID 30 days #60 ta bs 05/20/23 Unknown Rx tablet,extended release 24 hr spironolactone 25 mg tablet 12.5 mg (1/2 x 25 mg) PO D AILY #30 05/20/23 Unknown Rx tabs thiamine HCl (vitamin B1) 100 mg 100 mg PO DAILYCM #0 tabs 05/20/23 Unknown Rx tablet (Vitamin B-1) pantoprazole 40 mg tablet,delayed 40 mg PO BID #60 tab s 06/27/23 Unknown Rx release Allergy/AdvReac Type Severity Reaction Status Date / Time No Known Allergies Allergy Verified 05/09/23 13:37 Family History Father CAD (coronary artery disease) Mother Dementia Surgical History H/O cardiac catheterization History of aortic aneurysm repair (~2016) History of cataract surgery History of hernia repair History of aortic valve replacement with bioprosthetic valve (~2016) H/O aortic valve replacement Social History household members: family housing: house Smoking Status: Current every day smoker tobacco type: cigarettes alcohol intake: current alcohol intake frequency: 0-2 drinks per day details: Reports currently ~ 2 tall boys daily. substance use type: former substance user caffeine: Yes Type: coffee Number of servings: 3 EXAM Physical Exam Const Vital Signs: 06/25/24 16:17 06/25/24 18:25 06/25/24 20:00 Temperature 98.6 F Temperature Source Oral Pulse Rate 104 H 74 88 Respiratory Rate 18 16 18 Blood Pressure 134/98 H 104/71 Blood Pressure Mean 110 82 Pulse Ox 98 96 94 Oxygen Delivery Method Room Air Room Air 06/25/24 21:38 06/25/24 22:00 Temperature 98.5 F Temperature Source Pulse Rate 106 H 118 H Respiratory Rate 15 20 H Blood Pressure 124/90 H 138/86 H Blood Pressure Mean 101 103 Pulse Ox 94 94 Oxygen Delivery Method Room Air MDM MDM MDM Narrative Medical decision making narrative: 63-year-old male with past medical history of DM, aortic valve replacement, HTN, chronic alcohol abuse who presents for evaluation of abdominal pain, distention, constipation. Prior to this had months of diarrhea. States he recently just had a EGD and colonoscopy done at [facility] [place]. Will Clinisync for these results. Differential diagnosis includes but is not limited to constipation, colitis, ascites, electrolyte abnormality, UTI, urinary retention, pancreatitis. NS bolus, Zofran, morphine ordered for symptoms. Bladder scan was 187. On chart review, patient had a colonoscopy in March not May with Dr. Mena. Indication was for iron deficiency anemia. Preparation of the colon was unsatisfactory. There was nonbleeding internal hemorrhoids. No specimens were collected. Repeat colonoscopy within 1 year. He had an EGD performed at the same time. There was erythematous mucosa in the atrium which was biopsied. Z-line that was irregular that was biopsied. CBC without leukocytosis. Patient has stable anemia and thrombocytopenia. CMP shows hypokalemia of 2.1, hypochloremia of 95, and baseline renal insufficiency with creatinine of 1.27. Patient has hyperglycemia of 398 with an anion gap of 16. He has a lactic acid of 6.6. Patient has a lactic acidosis in the past. I suspect that this is secondary to his alcohol use. Less likely DKA however will add on VBG and beta hydroxybutyrate. Also cannot rule out infectious etiology at this time as CT abdomen pelvis is pending however patient does not have leukocytosis. His abdominal exam is not consistent with ischemic colitis. His pain is currently controlled with only 2 mg of morphine. On reviewing imaging myself, there appears to be a lot of ascites therefore will be judicial with fluids. Will repeat potassium. Add on magnesium. Will obtain EKG due to electrolyte abnormalities. EKG reviewed see below. Repeat potassium 2.1. IV potassium ordered. Will hold off on p.o. given patient's complaint. Magnesium unremarkable. Beta hydroxybutyrate negative. VBG without acidosis. Patient not in DKA. IV insulin ordered. Repeat glucose 277 after insulin. UA negative for UTI. Positive for glucose but no ketones. Patient has alcoholic transaminitis with an AST of 62. This is improved from previous labs. His albumin is low is 2.5. Lipase unremarkable. CT abdomen pelvis shows diffuse small bowel colonic wall thickening, likely secondary to ascites. He has large abdominal pelvic ascites. Hepatomegaly and diffuse steatosis. Patient's abdominal pain and distention is likely due to ascites. He has no history of ascites in the past with no diagnosis of cirrhosis. I do think he would benefit from a paracentesis. He will require admission given his electrolyte abnormalities. Patient updated of all the results and the plan and confirmed understanding. I spoke with hospitalist service, Dr. Butler. He accepted admission. He had concerns of patient's lactic acidosis which I understand. Patient not presenting like ischemic colitis and pain is currently controlled. I did offer to call general surgery given patient does have diffuse small bowel and colonic wall thickening however he was okay with foregoing this at this time. Repeat lactic acid pending in which she will follow-up on. EKG: Interpreted by me/EM physician: EKG shows sinus tachycardia with PACs. Known right bundle branch block. Left anterior fascicular block. Heart rate 103. Impression: 1. Abdominal ascites, concern for new diagnosis of cirrhosis 2. Severe hypokalemia 3. Hyperglycemia with history of DM 4. Chronic anemia 5. Chronic thrombocytopenia 6. Alcoholic transaminitis 7. Lactic acidosis Lab Data Labs: Laboratory Results - last 24 hr 06/25/24 06/25/24 06/25/24 17:17 17:17 18:00 WBC Cancelled Corrected WBC Cancelled RBC Cancelled Hgb Cancelled Hct Cancelled MCV Cancelled MCH Cancelled MCHC Cancelled RDW Std Deviation Cancelled RDW Coeff of [place] Cancelled Plt Count Cancelled MPV Cancelled Immature Gran % (Auto) Cancelled Neut % (Auto) Cancelled Lymph % (Auto) Cancelled [place] % (Auto) Cancelled Eos % (Auto) Cancelled Baso % (Auto) Cancelled Absolute Neuts (auto) Cancelled Absolute Lymphs (auto) Cancelled Total Counted Cancelled Neutrophils % (Manual) Cancelled Band Neutrophils % Cancelled Lymphocytes % (Manual) Cancelled Monocytes % (Manual) Cancelled Eosinophils % (Manual) Cancelled Basophils % (Manual) Cancelled Metamyelocytes % Cancelled Myelocytes % Cancelled Promyelocytes % Cancelled Blast Cells % Cancelled Plasma Cell % (Manual) Cancelled Other Cells % Cancelled Nucleated RBC % Cancelled Nucleated RBCs/100 WBC Cancelled Differential Comment Cancelled Diff Path Review Cancelled Hypersegmented Neuts Cancelled Atypical Lymphocytes Cancelled Reactive Lymphocytes Cancelled Smudge Cells Cancelled Toxic Granulation Cancelled Toxic Vacuolation Cancelled Dohle Bodies Cancelled [place] Rods Cancelled Platelet Estimate Cancelled Plt Morphology Comment Cancelled RBC Morphology Cancelled Cancelled Polychromasia Cancelled Hypochromasia Cancelled Basophilic Stippling Cancelled Anisocytosis Cancelled Microcytosis Cancelled Macrocytosis Cancelled Spherocytes Cancelled Sickle Cells Cancelled Target Cells Cancelled Tear Drop Cells Cancelled Ovalocytes Cancelled Stomatocytes Cancelled [place] Bodies Cancelled [place] Cells Cancelled Bite Cells Cancelled Crenated Cell Cancelled Acanthocytes (Spur) Cancelled Rouleaux Cancelled Schistocytes Cancelled Sodium Cancelled Potassium Cancelled Chloride Cancelled Carbon Dioxide Cancelled Anion Gap Cancelled BUN Cancelled Creatinine Cancelled Estim Creat Clear Calc Cancelled Est GFR (MDRD) Non-Af Cancelled BUN/Creatinine Ratio Cancelled Glucose Cancelled Lactic Acid 6.6 H* Calcium Cancelled Magnesium Total Bilirubin Cancelled AST Cancelled ALT Cancelled Alkaline Phosphatase Cancelled Total Protein Cancelled Albumin Cancelled Globulin Cancelled Albumin/Globulin Ratio Cancelled Lipase Cancelled b-Hydroxybutyric mmol/L Urine Color Urine Clarity Urine pH Ur Specific [place] Urine Protein Urine Glucose (UA) Urine Ketones Urine Occult Blood Urine Nitrite Urine Bilirubin Urine Urobilinogen Ur Leukocyte Esterase Urine RBC Urine WBC Ur Squamous Epith Cells Urine Bacteria Urine Mucus POC Glucose 06/25/24 06/25/24 06/25/24 18:07 18:07 19:17 WBC 4.8 Corrected WBC RBC 2.80 L Hgb 10.1 L Hct 29.8 L MCV 106.4 H MCH 36.1 H MCHC 33.9 RDW Std Deviation 63.9 H RDW Coeff of [place] 16.2 H Plt Count 124 L MPV 11.8 Immature Gran % (Auto) 0.200 Neut % (Auto) 65.3 Lymph % (Auto) 22.1 [place] % (Auto) 11.6 H Eos % (Auto) 0.2 Baso % (Auto) 0.6 Absolute Neuts (auto) 3.1 Absolute Lymphs (auto) 1.05 Total Counted Neutrophils % (Manual) Band Neutrophils % Lymphocytes % (Manual) Monocytes % (Manual) Eosinophils % (Manual) Basophils % (Manual) Metamyelocytes % Myelocytes % Promyelocytes % Blast Cells % Plasma Cell % (Manual) Other Cells % Nucleated RBC % 0 Nucleated RBCs/100 WBC Differential Comment Diff Path Review Hypersegmented Neuts Atypical Lymphocytes Reactive Lymphocytes Smudge Cells Toxic Granulation Toxic Vacuolation Dohle Bodies [place] Rods Platelet Estimate Plt Morphology Comment RBC Morphology Polychromasia Hypochromasia Basophilic Stippling Anisocytosis Microcytosis Macrocytosis Spherocytes Sickle Cells Target Cells Tear Drop Cells Ovalocytes Stomatocytes [place] Bodies Kristofer Cells Bite Cells Crenated Cell Acanthocytes (Spur) Rouleaux Schistocytes Sodium 136 Potassium 2.2 L* 2.1 L* Chloride 95 L Carbon Dioxide 24.2 Anion Gap 16 H BUN 8 Creatinine 1.27 H Estim Creat Clear Calc 65.06 Est GFR (MDRD) Non-Af 64 BUN/Creatinine Ratio 6.5 L Glucose 398 H Lactic Acid Calcium 7.7 Magnesium 1.8 Total Bilirubin 0.46 AST 62 H ALT 32 Alkaline Phosphatase 125 Total Protein 5.0 L Albumin 2.5 L Globulin 2.5 Albumin/Globulin Ratio 1.0 Lipase 6 L b-Hydroxybutyric mmol/L 0.1 Urine Color Urine Clarity Urine pH Ur Specific [place] Urine Protein Urine Glucose (UA) Urine Ketones Urine Occult Blood Urine Nitrite Urine Bilirubin Urine Urobilinogen Ur Leukocyte Esterase Urine RBC Urine WBC Ur Squamous Epith Cells Urine Bacteria Urine Mucus POC Glucose 348 H 06/25/24 06/25/24 19:23 20:30 WBC Corrected WBC RBC Hgb Hct MCV MCH MCHC RDW Std Deviation RDW Coeff of [place] Plt Count MPV Immature Gran % (Auto) Neut % (Auto) Lymph % (Auto) [place] % (Auto) Eos % (Auto) Baso % (Auto) Absolute Neuts (auto) Absolute Lymphs (auto) Total Counted Neutrophils % (Manual) Band Neutrophils % Lymphocytes % (Manual) Monocytes % (Manual) Eosinophils % (Manual) Basophils % (Manual) Metamyelocytes % Myelocytes % Promyelocytes % Blast Cells % Plasma Cell % (Manual) Other Cells % Nucleated RBC % Nucleated RBCs/100 WBC Differential Comment Diff Path Review Hypersegmented Neuts Atypical Lymphocytes Reactive Lymphocytes Smudge Cells Toxic Granulation Toxic Vacuolation Dohle Bodies [place] Rods Platelet Estimate Plt Morphology Comment RBC Morphology Polychromasia Hypochromasia Basophilic Stippling Anisocytosis Microcytosis Macrocytosis Spherocytes Sickle Cells Target Cells Tear Drop Cells Ovalocytes Stomatocytes [place] Bodies Kristofer Cells Bite Cells Crenated Cell Acanthocytes (Spur) Rouleaux Schistocytes Sodium Potassium Chloride Carbon Dioxide Anion Gap BUN Creatinine Estim Creat Clear Calc Est GFR (MDRD) Non-Af BUN/Creatinine Ratio Glucose Lactic Acid Calcium Magnesium Total Bilirubin AST ALT Alkaline Phosphatase Total Protein Albumin Globulin Albumin/Globulin Ratio Lipase b-Hydroxybutyric mmol/L Urine Color Yellow Urine Clarity Clear Urine pH 7.0 Ur Specific [place] 1.010 Urine Protein 15 H Urine Glucose (UA) 1000 H Urine Ketones Negative Urine Occult Blood 50 H Urine Nitrite Negative Urine Bilirubin Negative Urine Urobilinogen Normal Ur Leukocyte Esterase Negative Urine RBC 0 SEEN Urine WBC 0 SEEN Ur Squamous Epith Cells 0 SEEN Urine Bacteria 0 SEEN Urine Mucus 0 SEEN POC Glucose 277 H ABG Data ABG results: ABG 06/25/24 19:23 Specimen Type ROSA Sample Site Not entered VBG pH 7.43 H VBG pO2 29 VBG HCO3 29 H VBG Total CO2 30 VBG O2 Sat (Calc) 58 VBG Base Excess 4 H POC Mix VBG pCO2 Pt Tmp 42.7 O2 Delivery Device Room Air Radiography Diagnostic Testing: Clinical Impression(s) from Imaging Studies Abdomen/Pelvis CT 06/25/24 16:43 IMPRESSION: 1. Diffuse small bowel and colonic wall thickening, likely secondary to ascites. 2. Large abdominopelvic ascites. 3. Hepatomegaly and diffuse steatosis. OVERALL FINAL ASSESSMENT: . LI-RADS is not meant to be used in patients <18 years or patients with cirrhosis due to congenital hepatic fibrosis or due to vascular disorders, because these patients have a lower chance of developing HCC. Reading Location: [facility] Discharge Plan Triage Chief Complaint: Abd Pain ED Provider: Rolan Romero Dx/Rx/DC Orders Prescriptions: No Action atorvastatin 10 mg tablet 10 mg PO DAILY hydralazine 25 mg tablet 25 mg PO TID dapagliflozin propanediol [Farxiga] 10 mg Tablet 10 mg PO DAILY multivitamin Tablet 1 tab PO DAILY insulin glargine [Lantus Solostar U-100 Insulin] 100 unit/mL (3 mL) insulin pen 10 unit subcut 1200 Patient Comments: pt stated he has not taken lantus for several days gabapentin 300 mg Capsule 300 mg PO DAILY Patient Comments: PT STATES THEY THINK THEY ARE ON THIS MEDICATION. metformin 500 mg tablet extended release 24 hr 500 mg PO BID Patient Comments: PT STATES THEY TAKE THIS ONCE DAILY. pantoprazole 40 mg tablet,delayed release (DR/EC) 40 mg PO BID Qty: 60 0RF thiamine HCl (vitamin B1) [Vitamin B-1] 100 mg Tablet 100 mg PO DAILYCM Qty: 0 0RF L.acidoph,saliva-B.bif-S.therm 175 mg Capsule 2 cap PO BID Qty: 0 0RF folic acid 1 mg Tablet 1 mg PO DAILY@0800 Qty: 0 0RF insulin lispro [Humalog KwikPen Insulin] 100 unit/mL Insulin Pen See Protocol subcut ACHS Qty: 0 0RF Protocol: 4. Sliding Scale Insulin High-Med Dosing Condition: 150-199 mg/dl = 2 units Condition: 200-259 mg/dl = 4 units Condition: 260-324 mg/dl = 6 units Condition: 325-374 mg/dl = 8 units Condition: 375-409 mg/dl = 10 units Condition: 410-449 mg/dl = 11 units Condition: Greater than 449 call physician Protocol Text: - Use for Total Daily Dose of Insulin 56-80 units - Patient who are insulin resistant or septic HIGH MEDIUM DOSING ALGORITHM furosemide 40 mg tablet 40 mg PO DAILY Qty: 30 0RF spironolactone 25 mg tablet 12.5 mg PO DAILY Qty: 30 0RF Rx Instructions: Hold if serum potassium more than 5.1. dicyclomine 10 mg Capsule 20 mg PO Q6H PRN PRN (Reason: abdominal discomfort) Qty: 0 0RF metoprolol succinate 25 mg Tablet Extended Release 24 Hr 25 mg PO BID 30 Days Qty: 60 0RF Primary Care Provider: Marianna Shine NP Referrals: Marianna Shine CAP AND HAT PRODUCTION SUPERVISOR, CAP AND HAT PRODUCTION SUPERVISOR-C [Primary Care Provider] - Print Language: Setswana
[2024-06-25] MEDS: Morphine 2 MG/ML Syringe IV (18:05)
[2024-06-25] MEDS: Ondansetron 4 MG/2 ML Vial IV (18:05)
[2024-06-25] MEDS: 0.9% Normal Saline (1000mL) 1,000 ML 999 ML IV (18:06)
[2024-06-25 18:25] VITALS: PULSE 74; RESP 16; O2SAT 96
[2024-06-25 18:30] LABS: Absolute Lymphocyte Count 1.05 X10^3/uL (0.83-4.51); Absolute Neutrophil Count 3.1 X10^3/uL (2.0-7.7); Basophil# 0.03 X10^3/uL; Basophil% 0.6 % (0-1); Eosinophil# 0.01 X10^3/uL; Eosinophils% 0.2 % (0-5); Hematocrit 29.8 % (40-54); Hemoglobin 10.1 g/dL (13.0-16.5); Lymphocyte # 1.05 X10^3/ul (0.83-4.51); Lymphocyte % 22.1 % (19-41); Mean Corp Hgb Conc 33.9 g/dL (32-36); Mean Corpuscular Hgb 36.1 pg (27.0-32.0); Mean Corpuscular Volume 106.4 fL (80-94); Mean Platelet Vol. 11.8 fl (6.2-12.0); Monocyte# 0.55 X10^3/uL; Monocyte% 11.6 % (0-10); NRBC Flagged by Analyzer 0 % (0-5); Neutrophil % 65.3 % (47-70); Platelet Count 124 K/mm3 (150-450); RBC Distribution Width CV 16.2 % (11.6-14.6); RBC Distribution Width SD 63.9 fl (35.1-43.9); White Blood Count 4.8 K/mm3 (4.4-11.0)
[2024-06-25 18:40] LABS: Lipase 6 U/L (13-75)
[2024-06-25 18:50] LABS: Lactic Acid 6.6 mmol/L (0.0-2.0)
[2024-06-25 18:51] LABS: AST(SGOT) 62 U/L (<=37); Alanine Aminotransfer ALT/SGPT 32 U/L (<=46); Albumin, Serum 2.5 g/dL (3.4-4.8); Alkaline Phosphatase 125 U/L (40-129); Anion Gap 16 (5-15); BUN 8 mg/dL (4-19); BUN/Creat Ratio 6.5 RATIO (10-20); Calcium,Total 7.7 mg/dL (7.6-11.0); Carbon Dioxide 24.2 mmol/L (21.0-32.0); Chloride 95 mmol/L (98-108); Creatinine, Serum 1.27 mg/dL (0.70-1.20); EST Glomerular Filtration Rate 64 (>60); Estimated Creatinine Clearance 65.06 ml/min (50-250); Globulin 2.5 g/dL (2.2-4.2); Glucose 398 mg/dL (70-99); Potassium 2.2 mmol/L (3.3-5.1); Sodium Level 136 mmol/L (133-145); Total Bilirubin 0.46 mg/dL (0.00-1.30)
--- NOTE | 2024-06-25 19:07 | EKG12_ITS ---
Test Reason : DYSRHYTHMIA Blood Pressure : */* mmHG Vent. Rate : 103 BPM Atrial Rate : 104 BPM P-R Int : 184 ms QRS Dur : 140 ms QT Int : 398 ms P-R-T Axes : * -54 90 degrees QTcB Int : 521 ms Sinus tachycardia with Premature atrial complexes Right bundle branch block Left anterior fascicular block Bifascicular block Abnormal ECG Confirmed by ZHAO FRANCISCO, KETTY ([id number]), electronic news gathering editor CARLOS ROBLES ([id number]) on 06/26/2024 9:28:17 AM Referred By: Rolan Romero Confirmed By: KETTY CHURCHILL MD
[2024-06-25 19:25] LABS: BETA-HYDROXYBUTYRATE 0.1 mmol/L (0.0-0.3); Magnesium 1.8 mg/dL (1.5-2.2)
[2024-06-25 19:27] LABS: Blood Gas Specimen Type VEN; O2 Delivery Device Room Air; SITE Not entered; VBG BASE EXCESS 4 mmol/L (-1.0-3.5); VBG Bicarbonate 29 mmol/L (22-26); VBG PO2 29 mmHg (25-40); VBG SO2 58 % (50-70); VBG TCO2 30 mmol/L (23-33); VBG pCO2 42.7 mmHg (41-51); VBG pH 7.43 (7.32-7.42)
[2024-06-25 19:33] LABS: Bacteria 0 SEEN /hpf (None Seen); Mucous, Urine 0 SEEN /hpf (<or=2+); Red Blood Cells-Urine 0 SEEN /hpf (0-5); Squamous Epithelial Cells - UA 0 SEEN /hpf (0-5); White Blood Cells 0 SEEN /hpf (0-5)
[2024-06-25 19:35] LABS: Bedside Glucose 348 mg/dL (74-106)
[2024-06-25 19:40] LABS: Color, Urine Yellow (Yellow); Glucose, Dipstick 1000 mg/dl (Normal); Ketone-Dipstick Negative (Negative); Leukocyte Esterase-Dipstick Negative /ul (Negative); Nitrite-Dipstick Negative (Negative); Occult Blood-Urine 50 /ul (Negative); Protein-Dipstick 15 mg/dl (Negative); Urine Bilirubin Dipstick Negative (Negative); Urine Clarity Clear (Clear); Urine Urobilinogen Normal (Normal)
[2024-06-25 19:42] LABS: Potassium 2.1 mmol/L (3.3-5.1)
[2024-06-25] MEDS: Insulin Lispro 100 UNIT/ML VIAL (ADMELOG) IV (19:50)
--- NOTE | 2024-06-25 19:56 | ED.RN ---
When scanning in medication (IV insulin - see MAR), there was no barcode on medication that was sent from pharmacy to scan into the MAR. Pharmacy was called by this RN, pharmacy stated to override medication. Charge nurse notified and medication was overridden with hiv/aids care nurse Ti.
[2024-06-25 20:00] VITALS: BP 104/71; PULSE 88; RESP 18; O2SAT 94
[2024-06-25] MEDS: Potassium Chloride 10mEq/100mL 10 MEQ/100 ML IV.SOLN. 100 MEQ IV BOLUS ×3 (20:27→22:52)
[2024-06-25 20:49] LABS: Bedside Glucose 277 mg/dL (74-106)
--- NOTE | 2024-06-25 21:29 | PCM.HP.STD ---
[facility] - General General Date of Admission: 06/25/24 Date of Service: 06/25/24 Chief Complaint: Abdominal Pain, Chronic Diarrhea and Chronic EtOH Abuse. HPI Narrative ANALILIA MELENDREZ, is a 63 M with a past medical history of essential hypertension; on metoprolol twice daily, hydralazine 3 times daily, furosemide and spironolactone, hyperlipidemia; on atorvastatin, overweight; with a BMI of 26.6 this admission, chronic tobacco abuse, history of heroin abuse; with patient denying abuse for ~10 years, DM-2; on insulin glargine 10 units sq daily, insulin lispro AC/HS, dapagliflozin and metformin, diabetic neuropathy; on gabapentin, CAD; s/p AL, history of mechanical aortic valve replacement (2014) followed by bioprosthetic aortic valve replacement (~2016), history of SSS; s/p PPM (2016), history of RBBB, history of NSVT, history of AAA, history of thoracic aortic aneurysm with dissection (~2005 & ~2016 at [facility]), chronic EtOH abuse; with patient admitting to ~2-3 forty ounce beers daily on supplemental thiamine and folate, history of alcoholic hepatitis, history of chronic pancreatitis, history of seizures; likely due to EtOH withdrawal, history of MALIK, GERD with hiatal hernia; on pantoprazole twice daily, history of hernia; s/p repair and generalized anxiety who presents to [facility] ER complaining of abdominal pain, chronic diarrhea and chronic alcohol abuse. Mr. Melendrez reports his symptoms began several months prior to admission with chronic diarrhea which includes an outpatient workup including EGD and colonoscopy in March of this year done by Dr. Mena at [facility] for indication of iron deficiency anemia, with patient stating there were no acute findings in the setting of poor colon prep and nonbleeding internal hemorrhoids with repeat colonoscopy recommended in 1 year and EGD revealing erythematous mucosa in the atrium which was biopsied with an irregular Z-line that was biopsied. Then approximately 4 days ago his diarrhea stopped and became severely constipated with increasing abdominal pain and distention. He also admits to decreased urine output, foul-smelling urine and recently decreased oral intake. He states he is still drinking alcohol but he was only able to drink 1 tall boy today. He admits to nausea but he denies associated fever, chills, vomiting, chest pain, palpitations, heart racing, shortness of breath, headache or rash. In the ER he was noted to have Critical Hypokalemia of 2.1 mmol/L present on admission complicated by Lactic Acidosis of 6.6 mmol/L present on admission suspected to be due at least in part to Adverse Drug Reaction to metformin with corresponding CT scan of the abdomen and pelvis with IV contrast that revealed diffuse small bowel and colonic wall thickening likely secondary to ascites with large abdominal pelvic ascites and hepatomegaly with diffuse steatosis in the setting of Chronic EtOH Abuse in addition to laboratory evidence of moderate Thrombocytopenia of 124K present on admission suspected to be due to marrow-suppression from EtOH. He was then admitted to the PCU for ongoing care for stay that is expected to extend beyond 2 midnights. [facility] Medical History MALIK (acute kidney injury) Seizures Alcoholic hepatitis Chronic pancreatitis Gastric wall thickening Alcohol dependence Abdominal ascites Anxiety Diabetes Pancreatitis Myocardial infarct Pacemaker AAA (abdominal aortic aneurysm) Admitted to alcohol detoxification center Alcohol abuse Hx of hypercholesterolemia History of diabetes mellitus Alcohol dependence Substance abuse Smoker Alcoholism Right bundle branch block (RBBB) Non-sustained ventricular tachycardia Thoracic aortic aneurysm SVT (supraventricular tachycardia) Ascending aortic dissection (~2005) Pure hypercholesterolemia Adrenal nodule Hiatal hernia Left carotid bruit Cardiac pacemaker in situ (~06/2016) Essential hypertension Pacemaker Sick sinus syndrome Tobacco use HTN (hypertension) Diabetes mellitus, type II Home Medications ?Medication ?Instructions ?Recorded ?Last Taken ?Type atorvastatin 10 mg tablet 10 mg PO DAILY CHOLESTEROL 10/17/20 04/19/23 History hydralazine 25 mg tablet 25 mg PO TID BP 10/17/20 04/19/23 History dapagliflozin propanediol 10 mg 10 mg PO DAILY DIABETES 09/30/21 04/19/23 History tablet (Farxiga) Held on 05/20/23. Instructions: Hold it because of MALIK. multivitamin 1 tab PO DAILY SUPPLEMENT 11/11/21 11/10/21 History gabapentin 300 mg capsule 300 mg PO DAILY NEUROPATHY 11/14/22 Unknown History insulin glargine 100 unit/mL (3 10 unit subcut 1200 DIABETES 11/14/22 04/19/23 History mL) subcutaneous pen (Lantus Solostar U-100 Insulin) metformin 500 mg tablet,extended 500 mg PO BID DIABETES 11/15/22 04/19/23 History release 24 hr Held on 05/20/23. Instructions: Hold at least 1 week . Discontinue if creatinine clearance less than 30 mill per minute L.acidophil,salivari-Bifido 2 cap PO BID #0 caps 05/20/23 Unknown Rx bifidum-Strep thermoph 175 mg capsule dicyclomine 10 mg capsule 20 mg (2 x 10 mg) PO Q6H PRN PRN 05/20/23 Unknown Rx abdominal discomfort #0 caps folic acid 1 mg tablet 1 mg PO DAILY@0800 #0 tabs 05/20/23 Unknown Rx furosemide 40 mg tablet 40 mg PO DAILY #30 tabs 05/20/23 Unknown Rx insulin lispro 100 unit/mL See Protocol subcut ACHS #0 mL 05/20/23 Unknown Rx subcutaneous pen (Humalog KwikPen (U-100) Insulin) metoprolol succinate 25 mg 25 mg PO BID 30 days #60 tabs 05/20/23 Unknown Rx tablet,extended release 24 hr spironolactone 25 mg tablet 12.5 mg (1/2 x 25 mg) PO DAILY #30 05/20/23 Unknown Rx tabs thiamine HCl (vitamin B1) 100 mg 100 mg PO DAILYCM #0 tabs 05/20/23 Unknown Rx tablet (Vitamin B-1) pantoprazole 40 mg tablet,delayed 40 mg PO BID #60 tabs 06/27/23 Unknown Rx release Allergy/AdvReac Type Severity Reaction Status Date / Time No Known Allergies Allergy Verified 05/09/23 13:37 Family History Father CAD (coronary artery disease) Mother Dementia Surgical History H/O cardiac catheterization History of aortic aneurysm repair (~2016) History of cataract surgery History of hernia repair History of aortic valve replacement with bioprosthetic valve (~2017) H/O aortic valve replacement Social History household members: family housing: house Smoking Status: Current every day smoker tobacco type: cigarettes alcohol intake: current alcohol intake frequency: 0-2 drinks per day details: Reports currently ~ 2 tall boys daily. substance use type: former substance user caffeine: Yes Type: coffee Number of servings: 3 ROS ROS Narrative Review of Systems: Constitutional: Patient denies fever or chills. Eyes: Patient denies changes in vision or discharge from eyes. ENT: Patient denies runny nose, sore throat or ear pain. Resp: Patient denies shortness of breath or cough. CV: Patient denies chest pain, palpitations, heart racing or lower extremity edema. GI: Patient admits to diffuse abdominal pain and distention with ascites and chronic diarrhea with nausea but he denies vomiting. : Patient admits to decreased urine output with foul-smelling urine. MSK: Patient denies arthralgias or myalgias. Skin: Patient denies rash, abscess, wounds or jaundice. Psych: Patient denies symptoms of uncontrolled depression or anxiety. Neuro: Patient denies headache, paresthesias or focal neurologic deficits. Allergy: Patient denies lip swelling, tongue swelling or urticaria. Hematology: Patient denies easy bleeding or easy bruisability. Endocrinology: Patient denies polyuria, polydipsia, polyphagia or heat/cold intolerance. 14 point ROS otherwise negative save for positives noted above in HPI. Vital Signs Vital Signs Vital Signs: 06/25/24 16:17 06/25/24 18:25 06/25/24 20:00 Temperature 98.6 F Temperature Source Oral Pulse Rate 104 H 74 88 Respiratory Rate 18 16 18 Blood Pressure 134/98 H 104/71 Blood Pressure Mean 110 82 Pulse Ox 98 96 94 Oxygen Delivery Method Room Air Room Air Weight Weight: 190 lb 11.198 oz Body Mass Index (BMI) 26.6 Physical Exam Const alert, oriented x3, no apparent distress and average body habitus Constitutional Narrative: Patient appears chronically ill and older than his stated age. General Appearance: cooperative HEENT normocephalic, head/scalp atraumatic and hearing grossly normal bilaterally HEENT Narrative: Mucous membranes dry. Eyes PERRL, EOMs intact bilaterally and conjunctivae normal Neck no lymphadenopathy, supple and no JVD Resp normal respiratory effort, no retractions, no use of accessory muscles and clear to auscultation bilaterally Cardio regular rate and regular rhythm GI GI Narrative: Patient's abdomen is distended with positive fluid wave and tender to palpation diffusely with bruising in abdomen likely from insulin injections. There is no rebound or guarding. Extremity normal to inspection, full ROM and no clubbing, cyanosis or edema Skin Skin Narrative: Patient has bruising over abdomen likely from recent insulin injections. Neuro oriented x3, CN's II-XII intact bilaterally, moves all extremities and no focal motor deficits Sensorium / Orientation: awake, alert, oriented to person, oriented to place and oriented to time Speech: speech normal Psych affect normal Results Medical Records Data Attestation: I reviewed the patient's medical records Lab / Micro Data Attestation: I reviewed the patient's lab results. 06/26/24 05:25 06/25/24 18:07 Labs: Laboratory Results - last 24 hr 06/25/24 17:17: WBC Cancelled, Corrected WBC Cancelled, RBC Cancelled, Hgb Cancelled, Hct Cancelled, MCV Cancelled, MCH Cancelled, MCHC Cancelled, RDW Std Deviation Cancelled, RDW Coeff of Kalpana Cancelled, Plt Count Cancelled, MPV Cancelled, Immature Gran % (Auto) Cancelled, Neut % (Auto) Cancelled, Lymph % (Auto) Cancelled, Williams % (Auto) Cancelled, Eos % (Auto) Cancelled, Baso % (Auto) Cancelled, Absolute Neuts (auto) Cancelled, Absolute Lymphs (auto) Cancelled, Total Counted Cancelled, Neutrophils % (Manual) Cancelled, Band Neutrophils % Cancelled, Lymphocytes % (Manual) Cancelled, Monocytes % (Manual) Cancelled, Eosinophils % (Manual) Cancelled, Basophils % (Manual) Cancelled, Metamyelocytes % Cancelled, Myelocytes % Cancelled, Promyelocytes % Cancelled, Blast Cells % Cancelled, Plasma Cell % (Manual) Cancelled, Other Cells % Cancelled, Nucleated RBC % Cancelled, Nucleated RBCs/100 WBC Cancelled, Differential Comment Cancelled, Diff Path Review Cancelled, Hypersegmented Neuts Cancelled, Atypical Lymphocytes Cancelled, Reactive Lymphocytes Cancelled, Smudge Cells Cancelled, Toxic Granulation Cancelled, Toxic Vacuolation Cancelled, Dohle Bodies Cancelled, Huyen Rods Cancelled, Platelet Estimate Cancelled, Plt Morphology Comment Cancelled, RBC Morphology Cancelled 06/25/24 17:17: RBC Morphology Cancelled, Polychromasia Cancelled, Hypochromasia Cancelled, Basophilic Stippling Cancelled, Anisocytosis Cancelled, Microcytosis Cancelled, Macrocytosis Cancelled, Spherocytes Cancelled, Sickle Cells Cancelled, Target Cells Cancelled, Tear Drop Cells Cancelled, Ovalocytes Cancelled, Stomatocytes Cancelled, Whiteside-Mcmullen Bodies Cancelled, [place] Cells Cancelled, Bite Cells Cancelled, Crenated Cell Cancelled, Acanthocytes (Spur) Cancelled, Rouleaux Cancelled, Schistocytes Cancelled, Sodium Cancelled, Potassium Cancelled, Chloride Cancelled, Carbon Dioxide Cancelled, Anion Gap Cancelled, BUN Cancelled, Creatinine Cancelled, Estim Creat Clear Calc Cancelled, Est GFR (MDRD) Non-Af Cancelled, BUN/Creatinine Ratio Cancelled, Glucose Cancelled, Calcium Cancelled, Total Bilirubin Cancelled, AST Cancelled, ALT Cancelled, Alkaline Phosphatase Cancelled, Total Protein Cancelled, Albumin Cancelled, Globulin Cancelled, Albumin/Globulin Ratio Cancelled, Lipase Cancelled 06/25/24 18:00: Lactic Acid 6.6 H* 06/25/24 18:07: WBC 4.8, RBC 2.80 L, Hgb 10.1 L, Hct 29.8 L, MCV 106.4 H, MCH 36.1 H, MCHC 33.9, RDW Std Deviation 63.9 H, RDW Coeff of Kalpana 16.2 H, Plt Count 124 L, MPV 11.8, Immature Gran % (Auto) 0.200, Neut % (Auto) 65.3, Lymph % (Auto) 22.1, Williams % (Auto) 11.6 H, Eos % (Auto) 0.2, Baso % (Auto) 0.6, Absolute Neuts (auto) 3.1, Absolute Lymphs (auto) 1.05, Nucleated RBC % 0, Sodium 136, Potassium 2.2 L* 06/25/24 18:07: Potassium 2.1 L*, Chloride 95 L, Carbon Dioxide 24.2, Anion Gap 16 H, BUN 8, Creatinine 1.27 H, Estim Creat Clear Calc 65.06, Est GFR (MDRD) Non-Af 64, BUN/Creatinine Ratio 6.5 L, Glucose 398 H, Calcium 7.7, Magnesium 1.8, Total Bilirubin 0.46, AST 62 H, ALT 32, Alkaline Phosphatase 125, Total Protein 5.0 L, Albumin 2.5 L, Globulin 2.5, Albumin/Globulin Ratio 1.0, Lipase 6 L, b-Hydroxybutyric mmol/L 0.1 06/25/24 19:17: POC Glucose 348 H 06/25/24 19:23: Urine Color Yellow, Urine Clarity Clear, Urine pH 7.0, Ur Specific [place] 1.010, Urine Protein 15 H, Urine Glucose (UA) 1000 H, Urine Ketones Negative, Urine Occult Blood 50 H, Urine Nitrite Negative, Urine Bilirubin Negative, Urine Urobilinogen Normal, Ur Leukocyte Esterase Negative, Urine RBC 0 SEEN, Urine WBC 0 SEEN, Ur Squamous Epith Cells 0 SEEN, Urine Bacteria 0 SEEN, Urine Mucus 0 SEEN 06/25/24 20:30: POC Glucose 277 H ABG Data ABG results: ABG 06/25/24 19:23 Specimen Type ROSA Sample Site Not entered VBG pH 7.43 H VBG pO2 29 VBG HCO3 29 H VBG Total CO2 30 VBG O2 Sat (Calc) 58 VBG Base Excess 4 H POC Mix VBG pCO2 Pt Tmp 42.7 O2 Delivery Device Room Air Imaging Radiology Impression Abdomen/Pelvis CT 06/25/24 16:43 IMPRESSION: 1. Diffuse small bowel and colonic wall thickening, likely secondary to ascites. 2. Large abdominopelvic ascites. 3. Hepatomegaly and diffuse steatosis. OVERALL FINAL ASSESSMENT: . LI-RADS is not meant to be used in patients <18 years or patients with cirrhosis due to congenital hepatic fibrosis or due to vascular disorders, because these patients have a lower chance of developing HCC. Reading Location: [facility] Assessment & Plan Assessment/Plan (1) Chronic alcohol abuse: (2) Hypokalemia: (3) Chronic diarrhea: (4) Lactic acidosis: (5) Adverse drug reaction: QUALIFIERS: Encounter type: initial encounter Qualified Code(s): T50.905A - Adverse effect of unspecified drugs, medicaments and biological substances, initial encounter (6) Ascites due to alcoholic cirrhosis: (7) Macrocytosis associated with alcohol: PLAN: Plan 1. Critical Hypokalemia of 2.1 mmol/L present on admission in the setting of Chronic Diarrhea - Give supplemental IV and oral KCl and then recheck level in the AM. Check stool studies in case of infectious etiology and place under enteric precautions plus start empiric IV metronidazole in case of Clostridium difficile colitis. Finally, we will consult gastroenterology for further recommendations with help appreciated in advance. 2. Lactic Acidosis of 6.6 mmol/L present on admission suspected to be due at least in part to Adverse Drug Reaction to metformin complicating #1 - Volume resuscitate and serialize lactate to follow trend with repeat lactic acid down to 4.8 mmol/L after initial round of treatment. 3. Chronic EtOH Abuse with large abdominal pelvic ascites on CT this admission in addition to Macrocytosis with MCV of 106.4 fL present on admission compounding #1 & #2 - EtOH cessation will be strongly encouraged. Start Phenobarbital IV to prevent impending EtOH withdrawal. Check B12 and folate levels with macrocytosis. Give MVI IV while patient NPO. Finally, we will set up diagnostic and therapeutic paracentesis at interventional radiology in a.m. with help appreciated in advance. Check EtOH level. 4. Moderate Thrombocytopenia of 124K present on admission suspected to be due to marrow-suppression from EtOH adding to the medical complexity of #1 - #3 - Check CBC daily to follow trend. 5. Chronic diarrhea which includes an outpatient workup including EGD and colonoscopy in March of this year done by Dr. Mena at [facility] for indication of iron deficiency anemia, with patient stating there were no acute findings in the setting of poor colon prep and nonbleeding internal hemorrhoids with repeat colonoscopy recommended in 1 year and EGD revealing erythematous mucosa in the atrium which was biopsied with an irregular Z-line that was biopsied adding to the burden of disease outlined from #1 - #4 - Noted. 6. DM-2; on insulin glargine 10 units sq daily, insulin lispro AC/HS, dapagliflozin and metformin plus diabetic neuropathy; on gabapentin - Keep NPO for now until GI evaluation. Check FSBS q. AC/HS plus lowest-intensity SSI. 7. Chronic Tobacco Abuse - Tobacco cessation will be strongly encouraged with Nicotine patch however to control cravings. 8. Essential hypertension; on metoprolol twice daily, hydralazine 3 times daily, furosemide and spironolactone - Hold home regimen until volume is resuscitated and give prn hydralazine IV for systolic blood pressure > 160 mmHg. 9. Hyperlipidemia; on atorvastatin - Restart statin when patient is cleared for oral intake. Check Lipid Profile. 10. Overweight; with a BMI of 26.6 this admission - Weight loss will be recommended. Check TSH. 11. History of heroin abuse; with patient denying abuse for ~10 years - Check UDS. Apparently no UDS was checked prior to patient being treated with IV morphine in ER. 12. CAD; s/p AL - Noted. 13. History of mechanical aortic valve replacement (2014) followed by bioprosthetic aortic valve replacement (~2016) - Stable. 14. History of SSS; s/p PPM (2017) - Noted. 15. History of RBBB - Noted. 16. History of NSVT - Noted with no signs of recurrence at this time. 17. History of AAA - Noted. 18. History of thoracic aortic aneurysm with dissection (~2005 & ~2017 at [facility]) - Noted. 19. History of alcoholic hepatitis - Noted. 20. History of chronic pancreatitis - Noted with normal Lipase of 6 present on admission and no signs of pancreatic inflammation on CT this admission. 21. History of seizures; likely due to EtOH withdrawal - Noted. 22. History of MALIK - Noted. 23. GERD with hiatal hernia; on pantoprazole twice daily - Resume pantoprazole IV while NPO. 24. History of hernia; s/p repair - Noted. 25. Generalized anxiety - Give low-dose prn IV lorazepam for breakthrough symptoms. 26. DVT prophylaxis - SCD's only with impending paracentesis and endoscopy. Total time: Approximately (but not less than) 75 minutes. Charges/Coding Visit Charges Inpatient E&M: 80502 Init Hosp L3
[2024-06-25 21:38] VITALS: BP 124/90; PULSE 106; RESP 15; TEMP 36.9; O2SAT 94
[2024-06-25 22:00] VITALS: BP 138/86; PULSE 118; RESP 20; O2SAT 94
[2024-06-25 22:05] LABS: Reflex Lactate? Y
[2024-06-25 23:05] LABS: Alcohol, Blood (Medical)-Serum < 10.1 mg/dL (<=10.0)
[2024-06-25 23:19] LABS: Lactic Acid 4.8 mmol/L (0.0-2.0)
[2024-06-26] VITALS (11 sets, daily range): BP systolic 103–160; BP diastolic 71–109; PULSE 95–109; RESP 14–20; TEMP 36.7–37.2; O2SAT 93–95; BMI 22.5; BMI 22.8
[2024-06-26] MEDS: Potassium Chloride 10mEq/100mL 10 MEQ/100 ML IV.SOLN. 100 MEQ IV BOLUS (00:25)
[2024-06-26 01:57] LABS: Magnesium 1.8 mg/dL (1.5-2.2)
[2024-06-26] MEDS: Morphine 2 MG/ML Syringe IV (01:59)
[2024-06-26] MEDS: Pantoprazole Sodium 40 MG in 0.9% Normal Saline (100mL MB+) 100 ML 330 MG IV ×2 (02:00→10:39)
[2024-06-26] MEDS: metroNIDAZOLE 500 MG/100 ML BAG 100 MG IV ×2 (02:01→05:56)
[2024-06-26] MEDS: KCL 20MEQ in 0.9% NS 20 MEQ/1,000 ML IV.SOLN. 100 MEQ IV (02:03)
[2024-06-26] MEDS: Insulin Lispro 100 UNIT/ML INSULN.PEN SC ×3 (02:18→16:59)
[2024-06-26] MEDS: Phenobarbital Sodium 130 MG/ML Vial 100 MG IV ×2 (02:19→05:56)
[2024-06-26] MEDS: Potassium Chloride Oral Tablet 20 MEQ 60 MEQ PO ×3 (02:33→16:58)
[2024-06-26 02:47] LABS: Bedside Glucose 197 mg/dL (74-106)
[2024-06-26 02:50] LABS: Lactic Acid 4.7 mmol/L (0.0-2.0)
[2024-06-26] MEDS: Multivitamins 10 ML in 0.9% Normal Saline (1000mL) 1,000 ML 1000 ML IV (03:41)
[2024-06-26 05:18] LABS: Hemoglobin A1c 6.6 % (<=5.6)
--- NOTE | 2024-06-26 06:00 | US_ITS ---
PROCEDURE: PARACENTESIS WITH US 06/26/2024 REASON FOR EXAM: LARGE ABDOMINAL PELVIC ASCITES W/ CHRONIC ETOH ABU TECHNIQUE: Paracentesis. The procedure as well as the benefits and possible complications including infection were explained to the patient. Informed consent was obtained. The overlying skin was prepped and draped in the usual sterile fashion. Following local anesthetic application, a 5 Irish catheter was placed into the abdomen. 2050 mL of light colored fluid was aspirated. A sample was sent to the laboratory. COMPARISON: None FINDINGS: Successful paracentesis US/Paracentesis with US IMPRESSION: Successful paracentesis with removal of 2050 mL of light colored fluid. Reading Location: [place] [id number]
[2024-06-26 06:05] LABS: Reflex Lactate? Y
[2024-06-26 06:19] LABS: Absolute Lymphocyte Count 0.89 X10^3/uL (0.83-4.51); Absolute Neutrophil Count 3.3 X10^3/uL (2.0-7.7); Basophil# 0.04 X10^3/uL; Basophil% 0.8 % (0-1); Eosinophil# 0.02 X10^3/uL; Eosinophils% 0.4 % (0-5); Hematocrit 27.1 % (40-54); Hemoglobin 9.3 g/dL (13.0-16.5); Lymphocyte # 0.89 X10^3/ul (0.83-4.51); Lymphocyte % 18.4 % (19-41); Mean Corp Hgb Conc 34.3 g/dL (32-36); Mean Corpuscular Hgb 36.3 pg (27.0-32.0); Mean Corpuscular Volume 105.9 fL (80-94); Mean Platelet Vol. 11.6 fl (6.2-12.0); Monocyte# 0.57 X10^3/uL; Monocyte% 11.8 % (0-10); NRBC Flagged by Analyzer 0 % (0-5); Neutrophil % 68.4 % (47-70); Platelet Count 100 K/mm3 (150-450); RBC Distribution Width CV 16.3 % (11.6-14.6); RBC Distribution Width SD 63.6 fl (35.1-43.9); Red Blood Count 2.56 M/mm3 (4.6-6.2); White Blood Count 4.8 K/mm3 (4.4-11.0)
[2024-06-26 06:26] LABS: Bedside Glucose 172 mg/dL (74-106)
[2024-06-26 07:00] LABS: Cholesterol 74 mg/dL (<=200); High Density Lipoprotein 32 mg/dL; Low Density Lipoprotein Calc. 24 mg/dL; Phosphorus 2.3 mg/dL (2.7-4.5); Triglycerides 89 mg/dL; Very Low Density Lipoprotein 18 mg/dL (5-40); cholesterol:hdl ratio screen 2.29
--- NOTE | 2024-06-26 07:34 | PCM.PN.HOSP ---
Reason for Visit Reason for Visit: Abdominal pain Subjective Subjective Patient states he has not been drinking much alcohol at all recently. His last drink was on Wednesday and he said he had 1 tall boy and has always had. Patient states he is not aware of any previous diagnosis of cirrhosis. He does have a history of significant alcohol abuse. Chronic pancreatitis noted on his CT. Objective Data Objective Data Vital Signs: Vital Signs Temp Pulse Resp BP Pulse Ox O2 Del Method 98.2 F 109 H 20 H 153/96 H 94 Room Air 06/26/24 06:05 06/26/24 06:05 06/26/24 06:05 06/26/24 06:05 06/26/24 06:05 06/26/24 06:05 Oxygen Delivery Method Room Air Weight: 74.5 kg Body Mass Index (BMI) 22.8 Intake & Output: Intake and Output for Last 24 Hours 06/24/24 06/25/24 06/26/24 23:59 23:59 23:59 Intake Total 1300 / 1300 1380 / 1380 Balance 1300 / 1300 1380 / 1380 Lab / Micro Data 06/26/24 05:25 06/26/24 05:25 Labs: Laboratory Results - last 24 hr 06/25/24 01:16: Magnesium 1.8 06/25/24 01:58: Lactic Acid 4.7 H* 06/25/24 17:17: WBC Cancelled, Corrected WBC Cancelled, RBC Cancelled, Hgb Cancelled, Hct Cancelled, MCV Cancelled, MCH Cancelled, MCHC Cancelled, RDW Std Deviation Cancelled, RDW Coeff of Kalpana Cancelled, Plt Count Cancelled, MPV Cancelled, Immature Gran % (Auto) Cancelled, Neut % (Auto) Cancelled, Lymph % (Auto) Cancelled, [place] % (Auto) Cancelled, Eos % (Auto) Cancelled, Baso % (Auto) Cancelled, Absolute Neuts (auto) Cancelled, Absolute Lymphs (auto) Cancelled, Total Counted Cancelled, Neutrophils % (Manual) Cancelled, Band Neutrophils % Cancelled, Lymphocytes % (Manual) Cancelled, Monocytes % (Manual) Cancelled, Eosinophils % (Manual) Cancelled, Basophils % (Manual) Cancelled, Metamyelocytes % Cancelled, Myelocytes % Cancelled, Promyelocytes % Cancelled, Blast Cells % Cancelled, Plasma Cell % (Manual) Cancelled, Other Cells % Cancelled, Nucleated RBC % Cancelled, Nucleated RBCs/100 WBC Cancelled, Differential Comment Cancelled, Diff Path Review Cancelled, Hypersegmented Neuts Cancelled, Atypical Lymphocytes Cancelled, Reactive Lymphocytes Cancelled, Smudge Cells Cancelled, Toxic Granulation Cancelled, Toxic Vacuolation Cancelled, Dohle Bodies Cancelled, Huyen Rods Cancelled, Platelet Estimate Cancelled, Plt Morphology Comment Cancelled, RBC Morphology Cancelled 06/25/24 17:17: RBC Morphology Cancelled, Polychromasia Cancelled, Hypochromasia Cancelled, Basophilic Stippling Cancelled, Anisocytosis Cancelled, Microcytosis Cancelled, Macrocytosis Cancelled, Spherocytes Cancelled, Sickle Cells Cancelled, Target Cells Cancelled, Tear Drop Cells Cancelled, Ovalocytes Cancelled, Stomatocytes Cancelled, [place] Bodies Cancelled, Kristofer Cells Cancelled, Bite Cells Cancelled, Crenated Cell Cancelled, Acanthocytes (Spur) Cancelled, Rouleaux Cancelled, Schistocytes Cancelled, Sodium Cancelled, Potassium Cancelled, Chloride Cancelled, Carbon Dioxide Cancelled, Anion Gap Cancelled, BUN Cancelled, Creatinine Cancelled, Estim Creat Clear Calc Cancelled, Est GFR (MDRD) Non-Af Cancelled, BUN/Creatinine Ratio Cancelled, Glucose Cancelled, Calcium Cancelled, Total Bilirubin Cancelled, AST Cancelled, ALT Cancelled, Alkaline Phosphatase Cancelled, Total Protein Cancelled, Albumin Cancelled, Globulin Cancelled, Albumin/Globulin Ratio Cancelled, Lipase Cancelled 06/25/24 18:00: Lactic Acid 6.6 H* 06/25/24 18:07: WBC 4.8, RBC 2.80 L, Hgb 10.1 L, Hct 29.8 L, MCV 106.4 H, MCH 36.1 H, MCHC 33.9, RDW Std Deviation 63.9 H, RDW Coeff of Kalpana 16.2 H, Plt Count 124 L, MPV 11.8, Immature Gran % (Auto) 0.200, Neut % (Auto) 65.3, Lymph % (Auto) 22.1, [place] % (Auto) 11.6 H, Eos % (Auto) 0.2, Baso % (Auto) 0.6, Absolute Neuts (auto) 3.1, Absolute Lymphs (auto) 1.05, Nucleated RBC % 0, Sodium 136, Potassium 2.2 L* 06/25/24 18:07: Potassium 2.1 L*, Chloride 95 L, Carbon Dioxide 24.2, Anion Gap 16 H, BUN 8, Creatinine 1.27 H, Estim Creat Clear Calc 65.06, Est GFR (MDRD) Non-Af 64, BUN/Creatinine Ratio 6.5 L, Glucose 398 H, Hemoglobin A1c 6.6 H, Calcium 7.7, Magnesium 1.8, Total Bilirubin 0.46, AST 62 H, ALT 32, Alkaline Phosphatase 125, Total Protein 5.0 L, Albumin 2.5 L, Globulin 2.5, Albumin/Globulin Ratio 1.0, Lipase 6 L, b-Hydroxybutyric mmol/L 0.1 06/25/24 19:17: POC Glucose 348 H 06/25/24 19:23: Urine Color Yellow, Urine Clarity Clear, Urine pH 7.0, Ur Specific [place] 1.010, Urine Protein 15 H, Urine Glucose (UA) 1000 H, Urine Ketones Negative, Urine Occult Blood 50 H, Urine Nitrite Negative, Urine Bilirubin Negative, Urine Urobilinogen Normal, Ur Leukocyte Esterase Negative, Urine RBC 0 SEEN, Urine WBC 0 SEEN, Ur Squamous Epith Cells 0 SEEN, Urine Bacteria 0 SEEN, Urine Mucus 0 SEEN 06/25/24 20:30: POC Glucose 277 H 06/25/24 22:19: Lactic Acid 4.8 H*, Ethyl Alcohol < 10.1 06/26/24 02:12: POC Glucose 197 H 06/26/24 05:25: WBC 4.8, RBC 2.56 L, Hgb 9.3 L, Hct 27.1 L, MCV 105.9 H, MCH 36.3 H, MCHC 34.3, RDW Std Deviation 63.6 H, RDW Coeff of Kalpana 16.3 H, Plt Count 100 L, MPV 11.6, Immature Gran % (Auto) 0.200, Neut % (Auto) 68.4, Lymph % (Auto) 18.4 L, [place] % (Auto) 11.8 H, Eos % (Auto) 0.4, Baso % (Auto) 0.8, Absolute Neuts (auto) 3.3, Absolute Lymphs (auto) 0.89, Nucleated RBC % 0, Phosphorus 2.3 L, Triglycerides 89, Cholesterol 74, LDL Cholesterol, Calc 24, VLDL Cholesterol 18, HDL Cholesterol 32 L, Cholesterol/HDL Ratio 2.29, TSH 1.740 06/26/24 05:58: POC Glucose 172 H Micro: Microbiology 06/25/24 22:38 Stool Stool Lactoferrin - Final 06/25/24 22:38 Stool Enteric Bacteriology - Final 06/25/24 22:38 Stool Clostridioides difficile (PCR) - Final ABG Data ABG results: ABG 06/25/24 19:23 Specimen Type ROSA Sample Site Not entered VBG pH 7.43 H VBG pO2 29 VBG HCO3 29 H VBG Total CO2 30 VBG O2 Sat (Calc) 58 VBG Base Excess 4 H POC Mix VBG pCO2 Pt Tmp 42.7 O2 Delivery Device Room Air Radiography Diagnostic Testing: Radiology Impression Abdomen/Pelvis CT 06/25/24 16:43 IMPRESSION: 1. Diffuse small bowel and colonic wall thickening, likely secondary to ascites. 2. Large abdominopelvic ascites. 3. Hepatomegaly and diffuse steatosis. OVERALL FINAL ASSESSMENT: . LI-RADS is not meant to be used in patients <18 years or patients with cirrhosis due to congenital hepatic fibrosis or due to vascular disorders, because these patients have a lower chance of developing HCC. Reading Location: [facility] Physical Exam Const alert, oriented x3, no apparent distress and average body habitus; Negative for healthy appearing or well nourished Constitutional Narrative: Upper middle-aged, white male, sitting up in bed, does not appear acutely ill but does look chronically ill, appears older than stated age, very pleasant, nursing at bedside HEENT head/scalp atraumatic and moist oral mucous membranes HEENT Narrative: Dentition is poor, Mallampati 2, no thrush Head and Scalp: normocephalic Eyes conjunctivae normal Eyes Narrative: No scleral icterus Resp normal respiratory effort, no retractions, no use of accessory muscles and clear to auscultation bilaterally Auscultation: Negative for rales, rhonchi or wheezes Cardio regular rate, regular rhythm, S1 normal heart sound, S2 normal heart sound, no murmurs, no rub, no gallops and no clicks GI normal to inspection, nondistended, normoactive bowel sounds and soft to palpation GI Narrative: Mild diffuse tenderness, positive fluid wave Extremity no clubbing, cyanosis or edema Extremity Narrative: Pedal and radial pulses are 2+ Neuro oriented x3, moves all extremities and no focal motor deficits Neuro Narrative: No asterixis Speech: speech normal Psych affect normal Psych Narrative: Very pleasant, interacts appropriately Assessment & Plan Assessment/Plan (1) Ascites due to alcoholic cirrhosis: (2) Lactic acidosis: (3) Chronic diarrhea: (4) Chronic pancreatitis: (5) Thrombocytopenia: PLAN: Plan Diarrhea/abdominal pain - Like related to chronic alcoholic pancreatitis - Start Creon - Fecal elastase, IBD, SGI, ESR, and CRP are pending per GI - Stool studies were negative for infectious etiology - Discontinue metronidazole Decompensated alcoholic liver cirrhosis/hepatomegaly - Potentially has some functioning liver - no marked cirrhosis type morphology noted on imaging - No significant splenomegaly -Paracentesis pending -Add fluid studies -Highly doubt SBP - Treatment per gastroenterology Thrombocytopenia - Appears to be chronic - Highly suspect related to liver disease but could be bone marrow suppression from alcohol use - Per discussion patient is not currently using significant abe of alcohol -Repeat lab in a.m. Hypokalemia - Aggressive replacement - Check a.m. magnesium level Hypophosphatemia - Phosphorus ordered via [facility] - Recheck lab in a.m. Constipation - Start MiraLAX p.o. twice daily Lactic acidosis - Likely related to the above - Has trended down with IV fluids - Discontinue IV fluids for now - No further trend required Chronic macrocytic anemia - Like related liver disease from alcohol use - Counts are stable with no signs of acute GI bleeding - Outpatient follow-up with GI after discharge DM-2 - Continue basal insulin 10 units daily - Continue SSI - Hold home oral agents - Carb controlled diet - Accu-Cheks as ordered CAD/essential hypertension/hyperlipidemia - Continue home hydralazine - Continue home metoprolol - Continue home Aldactone - Continue home Lasix - As needed hydralazine to continue - Continue atorvastatin Diabetic neuropathy - Start home gabapentin GERD -discontinue IV Protonix and start home dose History of alcohol abuse -patient without any current significant alcohol use -discontinue phenobarbital - okay to continue p.o. thiamine and folate History of aortic valve replacement - Bioprosthetic valve in 2017 - No current murmur History of sick sinus syndrome - Continue home metoprolol - Previous pacemaker History of AAA/thoracic aortic aneurysm - Had thoracic dissection and was treated at [facility] History of heroin abuse - Remote -patient states he has been clean for approximately 10 years Tobacco abuse - Encouraged cessation - nicotine patch replacement available DVT prophylaxis - Platelet count is 100,000 - Start Lovenox 40 subcu daily CODE STATUS - Full code Charges/Coding Visit Charges Inpatient E&M: 89849 Subs Hosp L2
[2024-06-26 07:35] LABS: AST(SGOT) 49 U/L (<=37); Alanine Aminotransfer ALT/SGPT 26 U/L (<=46); Albumin, Serum 2.1 g/dL (3.4-4.8); Alkaline Phosphatase 102 U/L (40-129); Anion Gap 10 (5-15); BUN 6 mg/dL (4-19); BUN/Creat Ratio 6.5 RATIO (10-20); Calcium,Total 7.1 mg/dL (7.6-11.0); Carbon Dioxide 24.9 mmol/L (21.0-32.0); Chloride 107 mmol/L (98-108); Creatinine, Serum 0.97 mg/dL (0.70-1.20); EST Glomerular Filtration Rate 88 (>60); Estimated Creatinine Clearance 84.27 ml/min (50-250); Globulin 2.1 g/dL (2.2-4.2); Glucose 180 mg/dL (70-99); Potassium 2.7 mmol/L (3.3-5.1); Protein, Total 4.3 g/dL (5.9-8.4); Sodium Level 142 mmol/L (133-145); Total Bilirubin 0.42 mg/dL (0.00-1.30)
[2024-06-26 07:46] LABS: Lactic Acid 3.1 mmol/L (0.0-2.0)
[2024-06-26] MEDS: Potassium Phosphate 21 MM in 0.9% Normal Saline (250mL Bag) 250 ML 84 MM IV (08:45)
[2024-06-26] MEDS: Dicyclomine 10 MG Capsule 20 MG PO ×2 (10:25→21:41)
[2024-06-26] MEDS: Spironolactone 25 MG Tablet 12.5 MG PO (10:26)
[2024-06-26] MEDS: Thiamine Hydrochloride 100 MG Tablet PO (10:26)
[2024-06-26] MEDS: Multivitamins,Therapeutic Tablet 1 TABLET PO (10:28)
[2024-06-26] MEDS: Atorvastatin Calcium 10 MG Tablet PO (10:28)
[2024-06-26] MEDS: Furosemide 40 MG Tablet PO (10:28)
[2024-06-26] MEDS: Folic Acid 1 MG Tablet PO (10:29)
[2024-06-26] MEDS: Metoprolol(XL)Succ 25 MG Tablet PO ×2 (10:30→21:41)
--- NOTE | 2024-06-26 12:30 | CASEMGMT ---
ELIS KEATING Assessment Face to Face with patient for initial transition planning/care coordination assessment. ELIS KEATING introduced self and role at [facility], pt voices understanding. Pt is A&Ox4 and is resting comfortably in bed and is calm. Care providers, pharmacy, and demographics verified. Admitting dx: Critical Hypokalemia, Lactic Acidosis LACE Strata: 2 PCP: Deepa Shine Specialists: denies Preferred Pharmacy: [facility] Insurance: ANISHA/[place] Prescription Benefit: Yes LNOK: Ezra (Father), Terra (Beto) Living Arrangements: Pt lives with his father in a mobile home with 5 steps to enter ADLs/IADLs: Pt states that he is mainly independent and that he and his father help each other out Transportation: Pt does not drive. Pt denies concerns and states that his family including his cousins and uncle can drive him DME: CBGM with sensors. Sufficient insulin pen needles. Pt states that his back up manual BGM broke and is requesting a new one with supplies. CM to provide Rx. Pt also has a FWW. HHC/SNF: Hx at [facility]. Denies skilled HH history ETOH/Drugs/Tobacco: Pt states that he uses to drink vodka daily but recently he has been drinking 1-2 tall cans of beer per week. Pt states that he smokes 1/2 packs of cigarettes per day and wants to quit. Pt denies illicit drug use. Pt reports that he would be receptive to resources regarding these issues. Pt?s goal: Home with skilled HHC Plan: Anticipate return home with skilled HHC @ the time of DC with BGM Rx and SW resources for ETOH and tobacco abuse. At this time, the pt states that does not want to go to OP therapy anywhere and that he would appreciate HHC to help him at home. Pt states that therapy a couple times a week would be beneficial. CM to provide the pt with a list of options. Pt thanks this ELIS KEATING and denies further questions or concerns at this time. Report given to INSOLE CEMENTER CM and BLANKA. Ivan Horta RN, CM
[2024-06-26 12:43] LABS: Bedside Glucose 138 mg/dL (74-106)
[2024-06-26] MEDS: Polyethylene Glycol 3350 17 GM PACKET PO ×2 (12:57→21:41)
[2024-06-26] MEDS: Insulin Glargine-YFGN 100 UNIT/ML Pen SC (13:00)
--- NOTE | 2024-06-26 13:32 | CASEMGMT ---
ELIS KEATING NOTE: List of [facility] agencies that was prepared by [employer] training and development assistant, provided to pt. There are only 2 agencies listed. Pt states he has no preference and to send referral to both to see who might be able to accept him. ang[employer] training and development assistant, made aware. Darleen VELASCON ELIS KEATING
--- NOTE | 2024-06-26 14:07 | CASEMGMT ---
Addendum entered by Rosario Jacques 06/26/24 16:05: Pt made aware [facility] and [facility] declined. He voices understanding. He states is comfortable returning home w/out HHC and declines wanting script for OP therapy. Addendum entered by Anny Fournier 06/26/24 15:05: Both [facility] and [facility] declined. ELIS CM updated. Anny Fournier DC Planning Asst. Original Note: Discharge Planning HH referral sent to Marie and [facility]. Anny Fournier DC Planning Asst.
--- NOTE | 2024-06-26 14:15 | NURSING ---
PATIENT HAD NEAR SYNCOPAL EPISODE AFTER USING RESTROOM. PATIENT MADE IT BACK TO BED AND THEN PATIENT STOPPED RESPONDING. THIS RN AND U/S TECH LOWERED PATIENT TO BED. ONCE LOWERED TO BED PATIENT STARTED RESPONDING AGAIN. VITALS UNREMARKABLE.
[2024-06-26] MEDS: Lidocaine 2% (20 ml mdv) 20 ML Vial INFILT (14:26)
--- NOTE | 2024-06-26 14:30 | FLU_PTH ---
PATIENT: ANALILIA TALLEY LOC: [facility] U#:[id number] AGE/SX: 63/M ROOM: [facility] RE06/25/[address]: Dr. Melonie De La Rosa DO : 1960 BED: 1 DIS: 06/28/2024 SPEC #: [id number] RECD: 06/26/24 15:26 STATUS: ROMARIO REQ #: [id number] GENOVEVA: 06/26/24 14:[address]: Melonie De La Rosa DEPT: CYTOLOGY RECD BY: Ti Warren ENTERED: 06/27/24 08:41 SP TYPE: Fluid OTHR DR: DO Dr. Conrado Donaldson DO Brittny Fátima, [employer] C DEVELOPER-C Tissues: A - PARACENTESIS FLUID Procedures: Special Stain Group II Surgery Specimen Level IV Cytospin Fluid HEADER OPERATION: Paracentesis fluid PRE-OP DIAGNOSIS: Ascites TISSUE SUBMITTED: A- Paracentesis fluid for cytology DIAGNOSIS CYTOLOGY A. Paracentesis fluid (cytospin and cellblock): * No malignant cells identified. CYTOLOGY STUDY Slides are reviewed. CYTOLOGY GROSS A. Received is 80 ml of light-yellow fluid labeled with the patient's name and and designated per the requisition as Paracentesis fluid. Submitted for cytology and cell block preparation. Mr 06/27/2024 CPT: 40480 , [id number]
[2024-06-26] MEDS: hydrALAZINE 25 MG Tablet PO ×2 (16:57→21:41)
[2024-06-26 17:17] LABS: Bedside Glucose 201 mg/dL (74-106)
--- NOTE | 2024-06-26 17:58 | EX.PCM.CON.G ---
HPI Consult Data Date of Consult: 06/26/24 HPI Narrative Reason for Consultation: Possible alcoholic cirrhosis HPI Narrative: ANALILIA TALLEY, is a 63 M who presents with chief complaints of abdominal pain, distention, constipation. He has a complicated past medical history of DM, aortic valve replacement, HTN, chronic alcohol abuse who presents for evaluation of abdominal pain, distention, constipation. He states that he has chronic history of abdominal pain and is why he drinks alcohol. He has been at our institution before but I have never seen him on consultation. He stated that for the past several months he has been having diarrhea in which he has had outpatient workup including EGD and colonoscopy in May. He had a poor prep during his colonoscopy and only thing that was noted was nonbleeding internal hemorrhoids. On his upper endoscopy was not noted whether he had any sign of portal gastropathy, esophageal varices, gastric varices or duodenal varices. He states that there was no acute findings. Patient states 4 days ago his diarrhea stopped and he became constipated. He complains of diffuse abdominal pain and distention. He also complains of decreased urine output and foul-smelling urine. In the ER he was noted to have Critical Hypokalemia of 2.1 mmol/L present on admission complicated by Lactic Acidosis of 6.6 mmol/Lpossibly secondary to metformin. CT scan of the abdomen and pelvis with IV contrast that revealed diffuse small bowel and colonic wall thickening likely secondary to ascites with large abdominal pelvic ascites and hepatomegaly with diffuse steatosis Today he underwent large-volume paracentesis and had 2.2 L of serosanguineous fluid removed. Analysis of the fluid was not done so a SAG gradient could not be calculated. [facility] Medical History MALIK (acute kidney injury) Seizures Alcoholic hepatitis Chronic pancreatitis Gastric wall thickening Alcohol dependence Abdominal ascites Anxiety Diabetes Pancreatitis Myocardial infarct Pacemaker AAA (abdominal aortic aneurysm) Admitted to alcohol detoxification center Alcohol abuse Hx of hypercholesterolemia History of diabetes mellitus Alcohol dependence Substance abuse Smoker Alcoholism Right bundle branch block (RBBB) Non-sustained ventricular tachycardia Thoracic aortic aneurysm SVT (supraventricular tachycardia) Ascending aortic dissection (~2005) Pure hypercholesterolemia Adrenal nodule Hiatal hernia Left carotid bruit Cardiac pacemaker in situ (~06/2016) Essential hypertension Pacemaker Sick sinus syndrome Tobacco use HTN (hypertension) Diabetes mellitus, type II Home Medications ?Medication ?Instructions ?Recorded ?Last Taken ?Type atorvastatin 10 mg tablet 10 mg PO DAILY CHOLESTEROL 10/17/20 04/19/23 History hydralazine 25 mg tablet 25 mg PO TID BP 10/17/20 04/19/23 History dapagliflozin propanediol 10 mg 10 mg PO DAILY DIABETES 09/30/21 04/19/23 History tablet (Farxiga) Held on 05/20/23. Instructions: Hold it because of MALIK. multivitamin 1 tab PO DAILY SUPPLEMENT 11/11/21 11/10/21 History gabapentin 300 mg capsule 300 mg PO DAILY NEUROPATHY 11/14/22 Unknown History insulin glargine 100 unit/mL (3 10 unit subcut 1200 DIABETES 11/14/22 04/19/23 History mL) subcutaneous pen (Lantus Solostar U-100 Insulin) metformin 500 mg tablet,extended 500 mg PO BID DIABETES 11/15/22 04/19/23 History release 24 hr Held on 05/20/23. Instructions: Hold at least 1 week . Discontinue if creatinine clearance less than 30 mill per minute L.acidophil,salivari-Bifido 2 cap PO BID #0 caps 05/20/23 Unknown Rx bifidum-Strep thermoph 175 mg capsule dicyclomine 10 mg capsule 20 mg (2 x 10 mg) PO Q6H PRN PRN 05/20/23 Unknown Rx abdominal discomfort #0 caps folic acid 1 mg tablet 1 mg PO DAILY@0800 #0 tabs 05/20/23 Unknown Rx furosemide 40 mg tablet 40 mg PO DAILY #30 tabs 05/20/23 Unknown Rx insulin lispro 100 unit/mL See Protocol subcut ACHS #0 mL 05/20/23 Unknown Rx subcutaneous pen (Humalog KwikPen (U-100) Insulin) metoprolol succinate 25 mg 25 mg PO BID 30 days #60 tabs 05/20/23 Unknown Rx tablet,extended release 24 hr spironolactone 25 mg tablet 12.5 mg (1/2 x 25 mg) PO DAILY #30 05/20/23 Unknown Rx tabs thiamine HCl (vitamin B1) 100 mg 100 mg PO DAILYCM #0 tabs 05/20/23 Unknown Rx tablet (Vitamin B-1) pantoprazole 40 mg tablet,delayed 40 mg PO BID #60 tabs 06/27/23 Unknown Rx release Allergy/AdvReac Type Severity Reaction Status Date / Time No Known Allergies Allergy Verified 05/09/23 13:37 Family History Father CAD (coronary artery disease) Mother Dementia Surgical History H/O cardiac catheterization History of aortic aneurysm repair (~2016) History of cataract surgery History of hernia repair History of aortic valve replacement with bioprosthetic valve (~2016) H/O aortic valve replacement Social History household members: family housing: house Smoking Status: Current every day smoker tobacco type: cigarettes alcohol intake: current alcohol intake frequency: 0-2 drinks per day details: Reports currently ~ 2 tall boys daily. substance use type: former substance user caffeine: Yes Type: coffee Number of servings: 3 ROS ROS Narrative Review of Systems: Constitutional: Patient denies fever or chills. Eyes: Patient denies changes in vision or discharge from eyes. ENT: Patient denies runny nose, sore throat or ear pain. Resp: Patient denies shortness of breath or cough. CV: Patient denies chest pain, palpitations, heart racing or lower extremity edema. GI: Patient admits to diffuse abdominal pain and distention with ascites and chronic diarrhea with nausea but he denies vomiting. : Patient admits to decreased urine output with foul-smelling urine. MSK: Patient denies arthralgias or myalgias. Skin: Patient denies rash, abscess, wounds or jaundice. Psych: Patient denies symptoms of uncontrolled depression or anxiety. Neuro: Patient denies headache, paresthesias or focal neurologic deficits. Allergy: Patient denies lip swelling, tongue swelling or urticaria. Hematology: Patient denies easy bleeding or easy bruisability. Endocrinology: Patient denies polyuria, polydipsia, polyphagia or heat/cold intolerance. 14 point ROS otherwise negative save for positives noted above in HPI. Physical Exam Const alert, oriented x3, no apparent distress and average body habitus Constitutional Narrative: Patient appears chronically ill and older than his stated age. General Appearance: cooperative HEENT normocephalic, head/scalp atraumatic and hearing grossly normal bilaterally Eyes PERRL, EOMs intact bilaterally and conjunctivae normal Neck no lymphadenopathy, supple and no JVD Resp normal respiratory effort, no retractions, no use of accessory muscles and clear to auscultation bilaterally Cardio regular rate and regular rhythm GI GI Narrative: Patient's abdomen is distended with positive fluid wave and tender to palpation diffusely with bruising in abdomen likely from insulin injections. There is no rebound or guarding. Extremity normal to inspection, full ROM and no clubbing, cyanosis or edema Skin Skin Narrative: Patient has bruising over abdomen likely from recent insulin injections. Neuro oriented x3, CN's II-XII intact bilaterally, moves all extremities and no focal motor deficits Sensorium / Orientation: awake, alert, oriented to person, oriented to place and oriented to time Speech: speech normal Psych affect normal Lab / Micro Data 06/26/24 05:25 06/26/24 05:25 Labs: Laboratory Results - last 24 hr 06/25/24 01:16: Magnesium 1.8 06/25/24 01:58: Lactic Acid 4.7 H* 06/25/24 18:00: Lactic Acid 6.6 H* 06/25/24 18:07: WBC 4.8, RBC 2.80 L, Hgb 10.1 L, Hct 29.8 L, MCV 106.4 H, MCH 36.1 H, MCHC 33.9, RDW Std Deviation 63.9 H, RDW Coeff of [place] 16.2 H, Plt Count 124 L, MPV 11.8, Immature Gran % (Auto) 0.200, Neut % (Auto) 65.3, Lymph % (Auto) 22.1, [place] % (Auto) 11.6 H, Eos % (Auto) 0.2, Baso % (Auto) 0.6, Absolute Neuts (auto) 3.1, Absolute Lymphs (auto) 1.05, Nucleated RBC % 0, Sodium 136, Potassium 2.2 L* 06/25/24 18:07: Potassium 2.1 L*, Chloride 95 L, Carbon Dioxide 24.2, Anion Gap 16 H, BUN 8, Creatinine 1.27 H, Estim Creat Clear Calc 65.06, Est GFR (MDRD) Non-Af 64, BUN/Creatinine Ratio 6.5 L, Glucose 398 H, Hemoglobin A1c 6.6 H, Calcium 7.7, Magnesium 1.8, Total Bilirubin 0.46, AST 62 H, ALT 32, Alkaline Phosphatase 125, Total Protein 5.0 L, Albumin 2.5 L, Globulin 2.5, Albumin/Globulin Ratio 1.0, Lipase 6 L, b-Hydroxybutyric mmol/L 0.1 06/25/24 19:17: POC Glucose 348 H 06/25/24 19:23: Urine Color Yellow, Urine Clarity Clear, Urine pH 7.0, Ur Specific [place] 1.010, Urine Protein 15 H, Urine Glucose (UA) 1000 H, Urine Ketones Negative, Urine Occult Blood 50 H, Urine Nitrite Negative, Urine Bilirubin Negative, Urine Urobilinogen Normal, Ur Leukocyte Esterase Negative, Urine RBC 0 SEEN, Urine WBC 0 SEEN, Ur Squamous Epith Cells 0 SEEN, Urine Bacteria 0 SEEN, Urine Mucus 0 SEEN 06/25/24 20:30: POC Glucose 277 H 06/25/24 22:19: Lactic Acid 4.8 H*, Ethyl Alcohol < 10.1 06/26/24 02:12: POC Glucose 197 H 06/26/24 05:25: WBC 4.8, RBC 2.56 L, Hgb 9.3 L, Hct 27.1 L, MCV 105.9 H, MCH 36.3 H, MCHC 34.3, RDW Std Deviation 63.6 H, RDW Coeff of [place] 16.3 H, Plt Count 100 L, MPV 11.6, Immature Gran % (Auto) 0.200, Neut % (Auto) 68.4, Lymph % (Auto) 18.4 L, [place] % (Auto) 11.8 H, Eos % (Auto) 0.4, Baso % (Auto) 0.8, Absolute Neuts (auto) 3.3, Absolute Lymphs (auto) 0.89, Nucleated RBC % 0, Sodium 142, Potassium 2.7 L*, Chloride 107, Carbon Dioxide 24.9, Anion Gap 10, BUN 6, Creatinine 0.97, Estim Creat Clear Calc 84.27, Est GFR (MDRD) Non-Af 88, BUN/Creatinine Ratio 6.5 L, Glucose 180 H, Calcium 7.1 L, Phosphorus 2.3 L, Total Bilirubin 0.42, AST 49 H, ALT 26, Alkaline Phosphatase 102, Total Protein 4.3 L, Albumin 2.1 L, Globulin 2.1 L, Albumin/Globulin Ratio 1.0, Triglycerides 89, Cholesterol 74, LDL Cholesterol, Calc 24, VLDL Cholesterol 18, HDL Cholesterol 32 L, Cholesterol/HDL Ratio 2.29, TSH 1.740 06/26/24 05:58: POC Glucose 172 H 06/26/24 07:05: Lactic Acid 3.1 H* 06/26/24 12:08: POC Glucose 138 H 06/26/24 16:55: POC Glucose 201 H Micro: Microbiology 06/25/24 22:38 Stool Stool Lactoferrin - Final 06/25/24 22:38 Stool Enteric Bacteriology - Final 06/25/24 22:38 Stool Clostridioides difficile (PCR) - Final ABG Data ABG results: ABG 06/25/24 19:23 Specimen Type ROSA Sample Site Not entered VBG pH 7.43 H VBG pO2 29 VBG HCO3 29 H VBG Total CO2 30 VBG O2 Sat (Calc) 58 VBG Base Excess 4 H POC Mix VBG pCO2 Pt Tmp 42.7 O2 Delivery Device Room Air Imaging Radiology Impression Abdomen/Pelvis CT 06/25/24 16:43 IMPRESSION: 1. Diffuse small bowel and colonic wall thickening, likely secondary to ascites. 2. Large abdominopelvic ascites. 3. Hepatomegaly and diffuse steatosis. OVERALL FINAL ASSESSMENT: . LI-RADS is not meant to be used in patients <18 years or patients with cirrhosis due to congenital hepatic fibrosis or due to vascular disorders, because these patients have a lower chance of developing HCC. Reading Location: [facility] Paracentesis Ultrasound 06/26/24 06:00 IMPRESSION: Successful paracentesis with removal of 2050 mL of light colored fluid. Reading Location: [id number] Assessment & Plan Assessment/Plan (1) Chronic alcohol abuse: (2) Hypokalemia: (3) Chronic diarrhea: (4) Lactic acidosis: (5) Adverse drug reaction: QUALIFIERS: Encounter type: initial encounter Qualified Code(s): T50.905A - Adverse effect of unspecified drugs, medicaments and biological substances, initial encounter (6) Ascites due to alcoholic cirrhosis: (7) Macrocytosis associated with alcohol: PLAN: Plan 63-year-old with past medical history of chronic alcohol abuse complicated by macrocytosis, thrombocytopenia, coagulopathy, protein calorie malnutrition, chronic pancreatitis as seen on imaging and cirrhosis with new onset ascites. His current MELD is 20 and he has a Child-Ndiaye class B-C. A?MELD score of 20 indicates a 19.6% 3-month mortality rate, while a Child-Ndiaye class B-C indicates a?30%-82% perioperative mortality rate depending on the specific class.?These scores are used to assess the severity of liver disease and predict mortality risk in patients with cirrhosis.? - Decompensated alcoholic cirrhosis with ascites-status post large-volume paracentesis. The patient says that he has not had a drink in a long time. His labs from last year showed that he was viral hepatitis A, B and C negative. He will need to be vaccinated for hepatitis AMB as an outpatient. He also will need to be checked for HIV. He will need to be started on diuretics. He is noted as an outpatient to be on furosemide 40 mg a day and spironolactone 12.5 mg a day. His goal should be 80 mg of furosemide and 100 mg 2 200 mg of spironolactone a day. This depends on his kidney function. He should be screened for esophageal varices with an upper endoscopy. He should also get a protein electrophoresis as there is associated with a monoclonal gammopathy with alcoholic cirrhosis. - Chronic alcoholic pancreatitis-I think his weight loss and diarrhea is likely associated with exocrine pancreatic insufficiency secondary to chronic pancreatitis and inability to secrete appropriate pancreatic enzymes for absorption. He should get a fecal elastase checked along with an IBD SGI and ESR and CRP. - Thrombocytopenia -likely secondary to splenic sequestration in the setting of cirrhosis. On his imaging he does not have significant splenomegaly. - Hepatomegaly-secondary to fatty liver disease from alcohol. He could have a significant amount of good liver left if he is able to get his ascites under control as he does not have splenomegaly. Particularly that is a reversible and at least a worsening portal hypertension and the complications associated with worsening portal hypertension. 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 he should have B12 and folate levels checked. - 500 mg sodium restriction -Further recommendation to follow 1. Critical Hypokalemia of 2.1 mmol/L present on admission in the setting of Chronic Diarrhea - Give supplemental IV and oral KCl and then recheck level in the AM. Check stool studies in case of infectious etiology and place under enteric precautions plus start empiric IV metronidazole in case of Clostridium difficile colitis. Finally, we will consult gastroenterology for further recommendations with help appreciated in advance. 2. Lactic Acidosis of 6.6 mmol/L present on admission suspected to be due at least in part to Adverse Drug Reaction to metformin complicating #1 - Volume resuscitate and serialize lactate to follow trend with repeat lactic acid down to 4.8 mmol/L after initial round of treatment. 3. Chronic EtOH Abuse with large abdominal pelvic ascites on CT this admission in addition to Macrocytosis with MCV of 106.4 fL present on admission compounding #1 & #2 - EtOH cessation will be strongly encouraged. Start Phenobarbital IV to prevent impending EtOH withdrawal. Check B12 and folate levels with macrocytosis. Give MVI IV while patient NPO. Finally, we will set up diagnostic and therapeutic paracentesis at interventional radiology in a.m. with help appreciated in advance. Check EtOH level. 4. Moderate Thrombocytopenia of 124K present on admission suspected to be due to marrow-suppression from EtOH adding to the medical complexity of #1 - #3 - Check CBC daily to follow trend. 5. Chronic diarrhea which includes an outpatient workup including EGD and colonoscopy in March of this year done by Dr. Mena at [facility] for indication of iron deficiency anemia, with patient stating there were no acute findings in the setting of poor colon prep and nonbleeding internal hemorrhoids with repeat colonoscopy recommended in 1 year and EGD revealing erythematous mucosa in the atrium which was biopsied with an irregular Z-line that was biopsied adding to the burden of disease outlined from #1 - #4 - Noted. 6. DM-2; on insulin glargine 10 units sq daily, insulin lispro AC/HS, dapagliflozin and metformin plus diabetic neuropathy; on gabapentin - Keep NPO for now until GI evaluation. Check FSBS q. AC/HS plus lowest-intensity SSI. 7. Chronic Tobacco Abuse - Tobacco cessation will be strongly encouraged with Nicotine patch however to control cravings. 8. Essential hypertension; on metoprolol twice daily, hydralazine 3 times daily, furosemide and spironolactone - Hold home regimen until volume is resuscitated and give prn hydralazine IV for systolic blood pressure > 160 mmHg. 9. Hyperlipidemia; on atorvastatin - Restart statin when patient is cleared for oral intake. Check Lipid Profile. 10. Overweight; with a BMI of 26.6 this admission - Weight loss will be recommended. Check TSH. 11. History of heroin abuse; with patient denying abuse for ~10 years - Check UDS. Apparently no UDS was checked prior to patient being treated with IV morphine in ER. 12. CAD; s/p CO - Noted. 13. History of mechanical aortic valve replacement (2014) followed by bioprosthetic aortic valve replacement (~2016) - Stable. 14. History of SSS; s/p PPM (2017) - Noted. 15. History of RBBB - Noted. 16. History of NSVT - Noted with no signs of recurrence at this time. 17. History of AAA - Noted. 18. History of thoracic aortic aneurysm with dissection (~2005 & ~2017 at [facility]) - Noted. 19. History of alcoholic hepatitis - Noted. 20. History of chronic pancreatitis - Noted with normal Lipase of 6 present on admission and no signs of pancreatic inflammation on CT this admission. 21. History of seizures; likely due to EtOH withdrawal - Noted. 22. History of MALIK - Noted. 23. GERD with hiatal hernia; on pantoprazole twice daily - Resume pantoprazole IV while NPO. 24. History of hernia; s/p repair - Noted. 25. Generalized anxiety - Give low-dose prn IV lorazepam for breakthrough symptoms. 26. DVT prophylaxis - SCD's only with impending paracentesis and endoscopy. Total time: Approximately (but not less than) 75 minutes. Charges/Coding Visit Charges Inpatient E&M: 57503 Init Hosp L3
[2024-06-26] MEDS: 0.9% Saline Lock 10 ML Syringe IV (21:41)
[2024-06-26] MEDS: Pantoprazole Sodium 40 MG Tablet PO (21:46)
[2024-06-26 21:49] LABS: Amphetamine Urine NEGATIVE (<1000 ng/mL); Barbiturate Urine NEGATIVE (< 200 ng/mL); Benzodiazepine Urine NEGATIVE (< 200 ng/mL); Buprenorphine Urine NEGATIVE (< 200 ng/mL); Cocaine Urine NEGATIVE (< 300 ng/mL); Fentanyl, Urine NEGATIVE; Methadone Urine NEGATIVE (< 300 ng/mL); Opiates Urine NEGATIVE (< 300 ng/mL); Oxycodone, Urine NEGATIVE (< 100 ng/mL); PCP Urine NEGATIVE (< 25 ng/mL); THC Urine NEGATIVE (< 50 ng/mL)
[2024-06-26] MEDS: Glycerin/Hypromellose/PEG400 15 ml Bottle 2 DRP EACH EYE (22:15)
[2024-06-26 22:29] LABS: AST(SGOT) 49 U/L (<=37); Alanine Aminotransfer ALT/SGPT 27 U/L (<=46); Alkaline Phosphatase 99 U/L (40-129); Bilirubin, Direct 0.23 mg/dL (0.00-0.30); Globulin 2.2 g/dL (2.2-4.2); Protein, Total 4.2 g/dL (5.9-8.4); Total Bilirubin 0.42 mg/dL (0.00-1.30)
[2024-06-26] MEDS: MELATONIN 3 MG TABLET 6 MG PO (22:52)
[2024-06-27] VITALS (18 sets, daily range): BP systolic 81–126; BP diastolic 61–88; PULSE 74–88; RESP 15–18; TEMP 36.2–37; O2SAT 92–96; BMI 23.2
[2024-06-27 00:54] LABS: Cytology, Body Fluid / CSF SEE PATHOLOGY REPORT
[2024-06-27 01:00] LABS: Pathologist Comment/Body Fluid May follow
[2024-06-27 01:25] LABS: Body Fluid Mononuclear WBC # 0.009 10^3/uL; Body Fluid Polynuclear WBC # 0.001 10^3/uL; Body Fluid Total Cells Counted 0.012 10^3/ul
[2024-06-27 02:06] LABS: Appearance/Body Fluid CLEAR; Auto B Fluid Analyzer BKGD Ct COUNTS W/IN LIMITS (W/IN LIMITS); Color/Body Fluid YELLOW; Red Cell Count/Body Fluid 35 /mm3; Source- Body Fluid PARACENTESIS
[2024-06-27 02:11] LABS: Protein, Body Fluid 0.3 g/dL (Not Establ.)
[2024-06-27 02:16] LABS: Glucose, Body Fluid 201 mg/dL (Not Establ.)
[2024-06-27 02:31] LABS: Body Fluid QC Type(s) BF1Q
[2024-06-27 02:38] LABS: Neutrophil (Segs) 6 %
[2024-06-27 02:39] LABS: Lymphocytes 17 %; Macrophages 56 %; Mesothelial Cells 21 %
[2024-06-27] MEDS: Glycerin/Hypromellose/PEG400 15 ml Bottle 2 DRP EACH EYE ×5 (03:30→22:11)
[2024-06-27] MEDS: 0.9% Saline Lock 10 ML Syringe IV (05:05)
[2024-06-27 05:20] LABS: Absolute Lymphocyte Count 0.89 X10^3/uL (0.83-4.51); Absolute Neutrophil Count 2.2 X10^3/uL (2.0-7.7); Basophil# 0.04 X10^3/uL; Basophil% 1.1 % (0-1); Eosinophil# 0.04 X10^3/uL; Eosinophils% 1.1 % (0-5); Hematocrit 26.2 % (40-54); Hemoglobin 8.7 g/dL (13.0-16.5); Lymphocyte # 0.89 X10^3/ul (0.83-4.51); Lymphocyte % 25.4 % (19-41); Mean Corp Hgb Conc 33.2 g/dL (32-36); Mean Corpuscular Volume 108.3 fL (80-94); Mean Platelet Vol. 11.1 fl (6.2-12.0); Monocyte# 0.31 X10^3/uL; Monocyte% 8.9 % (0-10); NRBC Flagged by Analyzer 0 % (0-5); Neutrophil # 2.21 X10^3/uL (2.7-7.7); Neutrophil % 63.2 % (47-70); POSITIVE MORPHOLOGY YES; Platelet Count 115 K/mm3 (150-450); RBC Distribution Width CV 16.7 % (11.6-14.6); RBC Distribution Width SD 65.3 fl (35.1-43.9); Red Blood Count 2.42 M/mm3 (4.6-6.2); White Blood Count 3.5 K/mm3 (4.4-11.0)
[2024-06-27 05:22] LABS: Differential Indicated SCAN CRITERIA MET
[2024-06-27 05:27] LABS: Bedside Glucose 131 mg/dL (74-106)
[2024-06-27 05:47] LABS: Anion Gap 8 (5-15); BUN 7 mg/dL (4-19); BUN/Creat Ratio 6.6 RATIO (10-20); Calcium,Total 7.3 mg/dL (7.6-11.0); Carbon Dioxide 25.2 mmol/L (21.0-32.0); Chloride 109 mmol/L (98-108); Creatinine, Serum 1.07 mg/dL (0.70-1.20); EST Glomerular Filtration Rate 79 (>60); Estimated Creatinine Clearance 77.11 ml/min (50-250); Glucose 134 mg/dL (70-99); Magnesium 1.5 mg/dL (1.5-2.2); Phosphorus 2.7 mg/dL (2.7-4.5); Potassium 3.5 mmol/L (3.3-5.1); Sodium Level 142 mmol/L (133-145)
[2024-06-27 06:16] LABS: Bedside Glucose 209 mg/dL (74-106)
[2024-06-27 06:34] LABS: International Normalized Ratio 1.4; Prothrombin Time (Protime)PT. 17.4 SECONDS (11.7-14.9)
[2024-06-27 06:35] LABS: Partial Thromboplast Time 30.2 Seconds (24.1-36.2)
--- NOTE | 2024-06-27 07:37 | PCM.PN.HOSP ---
Reason for Visit Reason for Visit: Abdominal pain Subjective Subjective No issues overnight. Patient complaining of oral headache currently. Has been n.p.o. all day for his EGD. Will treat his headache and now he is allowed to eat hopefully his headache improves. No significant complaints otherwise currently. Objective Data Objective Data Vital Signs: Vital Signs Temp Pulse Resp BP Pulse Ox O2 Del Method 98.4 F 74 17 104/80 95 Room Air 06/27/24 03:23 06/27/24 03:23 06/27/24 03:23 06/27/24 03:23 06/27/24 03:23 06/27/24 03:27 Oxygen Delivery Method Room Air Weight: 75.2 kg Body Mass Index (BMI) 23.2 Intake & Output: Intake and Output for Last 24 Hours 06/25/24 06/26/24 06/27/24 23:59 23:59 23:59 Intake Total 1300 / 1300 3087 / 3087 Output Total 2049 / 2049 250 / 250 Balance 1300 / 1300 1037 / 1037 -250 / -250 Lab / Micro Data 06/27/24 05:00 06/27/24 05:00 Labs: Laboratory Results - last 24 hr 06/25/24 19:23: Urine Opiates Screen NEGATIVE, U Buprenorphine Qual NEGATIVE, Ur Oxycodone Screen NEGATIVE, Urine Methadone Screen NEGATIVE, Urine Fentanyl Screen NEGATIVE, Ur Barbiturates Screen NEGATIVE, Ur Phencyclidine Scrn NEGATIVE, Ur Amphetamines Screen NEGATIVE, U Benzodiazepines Scrn NEGATIVE, Urine Cocaine Screen NEGATIVE, U Cannabinoids Screen NEGATIVE 06/26/24 00:00: Fluid Glucose 201, Fluid Total Protein 0.3 06/26/24 05:25: Total Bilirubin 0.42, Direct Bilirubin 0.23, AST 49 H, ALT 27, Alkaline Phosphatase 99, Total Protein 4.2 L, Albumin 2.0 L, Globulin 2.2 06/26/24 07:05: Lactic Acid 3.1 H* 06/26/24 12:08: POC Glucose 138 H 06/26/24 15:46: Fluid Source PARACENTESIS, Fluid Color YELLOW, Fluid Appearance CLEAR, Fluid WBC 0.010, Fluid RBC 35, Fluid Tot Cell Count 0.012, Fld Polynuclear WBCs # 0.001, Fld Polynuclear WBCs % 10.0, Fluid Mononuclear WBCs 0.009, Fld Mononuclear WBCs % 90.0, Fluid Neutrophils 6, Fluid Lymphocytes 17, Fluid Macrophages 56, Fld Mesothelial Cells 21, Fl Pathologist Comment May follow, Fluid Comment 2 SEE COMMENT 06/26/24 16:55: POC Glucose 201 H 06/27/24 00:08: POC Glucose 209 H 06/27/24 05:00: WBC 3.5 L, RBC 2.42 L, Hgb 8.7 L, Hct 26.2 L, MCV 108.3 H, MCH 36.0 H, MCHC 33.2, RDW Std Deviation 65.3 H, RDW Coeff of Kalpana 16.7 H, Plt Count 115 L, MPV 11.1, Immature Gran % (Auto) 0.300, Neut % (Auto) 63.2, Lymph % (Auto) 25.4, Leake % (Auto) 8.9, Eos % (Auto) 1.1, Baso % (Auto) 1.1 H, Absolute Neuts (auto) 2.2, Absolute Lymphs (auto) 0.89, Nucleated RBC % 0, PT 17.4 H, INR 1.4, APTT 30.2, Sodium 142, Potassium 3.5, Chloride 109 H, Carbon Dioxide 25.2, Anion Gap 8, BUN 7, Creatinine 1.07, Estim Creat Clear Calc 77.11, Est GFR (MDRD) Non-Af 79, BUN/Creatinine Ratio 6.6 L, Glucose 134 H, Calcium 7.3 L, Phosphorus 2.7, Magnesium 1.5 06/27/24 05:03: POC Glucose 131 H Micro: Microbiology 06/25/24 22:38 Stool Stool Lactoferrin - Final 06/25/24 22:38 Stool Enteric Bacteriology - Final 06/25/24 22:38 Stool Clostridioides difficile (PCR) - Final Radiography Diagnostic Testing: Radiology Impression Paracentesis Ultrasound 06/26/24 06:00 IMPRESSION: Successful paracentesis with removal of 2050 mL of light colored fluid. 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, does not appear acutely ill but does look chronically ill, appears older than stated age, mildly agitated about his headache General Appearance: cooperative HEENT normocephalic, head/scalp atraumatic, hearing grossly normal bilaterally and moist oral mucous membranes Resp normal respiratory effort, no retractions, no use of accessory muscles and clear to auscultation bilaterally Resp Narrative: Diminished diffusely but clear Auscultation: Negative for rales, rhonchi or wheezes Cardio regular rate, regular rhythm, S1 normal heart sound, S2 normal heart sound, no murmurs, no rub, no gallops and no clicks GI normal to inspection, nondistended, normoactive bowel sounds, soft to palpation and non-tender Extremity no clubbing, cyanosis or edema Extremity Narrative: Pedal and radial pulses are 2+ Neuro oriented x3, moves all extremities and no focal motor deficits Speech: speech normal Psych affect normal Psych Narrative: Very pleasant, interacts appropriately Assessment & Plan Assessment/Plan (1) Ascites due to alcoholic cirrhosis: (2) Lactic acidosis: (3) Chronic diarrhea: (4) Chronic pancreatitis: (5) Thrombocytopenia: PLAN: Plan Diarrhea/abdominal pain - Like related to chronic alcoholic pancreatitis -Continue Creon - Fecal elastase, IBD, SGI, are pending - Stool studies were negative for infectious etiology - Diarrhea seems a bit better today Decompensated alcoholic liver cirrhosis/hepatomegaly - Potentially has some functioning liver - no marked cirrhosis type morphology noted on imaging - No significant splenomegaly -Continue Lasix 40 mg daily -Continue home Aldactone 12.5 mg daily -Paracentesis pending -Add fluid studies -Highly doubt SBP - Treatment per gastroenterology Chronic macrocytic anemia with acute drop -baseline is unclear -drop from yesterday - EGD performed today and showed a normal esophagus with type I isolated gastric varices without bleeding, portal hypertensive gastropathy that was biopsied and no gross lesions in the entire duodenum - Suspect current blood count is probably close to his baseline Thrombocytopenia - Appears to be chronic and stable - Highly suspect related to liver disease but could be bone marrow suppression from alcohol use - Per discussion patient is not currently using significant abe of alcohol -Repeat lab in a.m. Hypokalemia -Resolved Hypophosphatemia -Resolved Constipation -Continue MiraLAX Lactic acidosis -Resolved DM-2 - Continue basal insulin 10 units daily -AM fasting blood sugar was well-controlled at 134 - Continue SSI - Hold home oral agents - Carb controlled diet - Accu-Cheks as ordered CAD/essential hypertension/hyperlipidemia - Continue home hydralazine - Continue home metoprolol - Continue home Aldactone - Continue home Lasix - As needed hydralazine to continue - Continue atorvastatin Diabetic neuropathy -Continue home gabapentin GERD -Continue home Protonix History of alcohol abuse -patient without any current significant alcohol use - continue p.o. thiamine and folate History of aortic valve replacement - Bioprosthetic valve in 2017 - No current murmur History of sick sinus syndrome - Continue home metoprolol - Previous pacemaker History of AAA/thoracic aortic aneurysm - Had thoracic dissection and was treated at [facility] History of heroin abuse - Remote -patient states he has been clean for approximately 10 years Tobacco abuse - Encouraged cessation - nicotine patch replacement available DVT prophylaxis -Platelet count remains greater than 70,000 -Continue Lovenox 40 subcu daily CODE STATUS - Full code Charges/Coding Visit Charges Inpatient E&M: 06730 Subs Hosp L2
[2024-06-27 09:06] LABS: Anisocytosis 1+
--- NOTE | 2024-06-27 10:22 | CASEMGMT ---
RN ZURI indicated patient was interested in ETOH resources. SW met with patient. Introduced self and role at [facility]. Patient declined wanting any ETOH information. Ashley STONE
[2024-06-27 12:39] LABS: Bedside Glucose 111 mg/dL (74-106)
[2024-06-27] MEDS: Lactated Ringers 1,000 ML 15 ML IV (14:26)
--- NOTE | 2024-06-27 14:44 | PN_ITS ---
Progress Note Patient is for upper endoscopy today to evaluate patient his upper GI tract for signs of blood loss anemia including varices, Mario erosions, portal hypertension, gastric antral vascular ectasia in the setting of cirrhosis. Physical Exam Const alert, oriented x3, no apparent distress and average body habitus Constitutional Narrative: Patient appears chronically ill and older than his stated age. General Appearance: cooperative HEENT normocephalic, head/scalp atraumatic and hearing grossly normal bilaterally Eyes PERRL, EOMs intact bilaterally and conjunctivae normal Neck no lymphadenopathy, supple and no JVD Resp normal respiratory effort, no retractions, no use of accessory muscles and clear to auscultation bilaterally Cardio regular rate and regular rhythm GI GI Narrative: Patient's abdomen is distended with positive fluid wave and tender to palpation diffusely with bruising in abdomen likely from insulin injections. There is no rebound or guarding. Extremity normal to inspection, full ROM and no clubbing, cyanosis or edema Skin Skin Narrative: Patient has bruising over abdomen likely from recent insulin injections. Neuro oriented x3, CN's II-XII intact bilaterally, moves all extremities and no focal motor deficits Sensorium / Orientation: awake, alert, oriented to person, oriented to place and oriented to time Speech: speech normal Psych affect normal Assessment & Plan Assessment/Plan (1) Chronic alcohol abuse: (2) Hypokalemia: (3) Chronic diarrhea: (4) Lactic acidosis: (5) Adverse drug reaction: QUALIFIERS: Encounter type: initial encounter Qualified Code(s): T50.905A - Adverse effect of unspecified drugs, medicaments and biological subs tances, initial encounter (6) Ascites due to alcoholic cirrhosis: (7) Macrocytosis associated with alcohol: PLAN: Plan 63-year-old with past medical history of chronic alcohol abuse complicated by macrocytosis, thrombocytopenia, coagulopathy, protein calorie malnutrition, chronic pancreatitis as seen on imaging and cirrhosis with new onset ascites. His current MELD is 20 and he has a Child-Ndiaye class B-C. A?MELD score of 20 indicates a 19.6% 3-month mortality rate, while a Child-Ndiaye class B-C indicates a?30%-82% perioperative mortality rate depending on the specific class.?These scores are used to assess the severity of liver disease and predict mortality risk in patients with cirrhosis.? - Decompensated alcoholic cirrhosis with ascites-status post large-volume paracentesis. The patient says that he has not had a drink in a long time. His labs from last year showed that he was viral hepatitis A, B and C negative. He will need to be vaccinated for hepatitis AMB as an outpatient. He also will need to be checked for HIV. He will need to be started on diuretics. He is noted as an outpatient to be on furosemide 40 mg a day and spironolactone 12.5 mg a day. His goal should be 80 mg of furosemide and 100 mg 2 200 mg of spironolactone a day. This depends on his kidney function. He should be screened for esophageal varices with an upper endoscopy. He should also get a protein electrophoresis as there is associated with a monoclonal gammopathy with alcoholic cirrhosis. - Chronic alcoholic pancreatitis-I think his weight loss and diarrhea is likely associated with exocrine pancreatic insufficiency secondary to chronic pancreatitis and inability to secrete appropriate pancreatic enzymes for absorption. He should get a fecal elastase checked along with an IBD SGI and ESR and CRP. - Thrombocytopenia -likely secondary to splenic sequestration in the setting of cirrhosis. On his imaging he does not have significant splenomegaly. - Hepatomegaly-secondary to fatty liver disease from alcohol. He could have a significant amount of good liver left if he is able to get his ascites under control as he does not have splenomegaly. Particularly that is a reversible and at least a worsening portal hypertension and the complications associated with worsening portal hypertension. 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 he should have B12 and folate levels checked. - 500 mg sodium restriction -Further recommendation to follow Patient will undergo an upper endoscopy today. He was explained alternatives, risk and benefits including withstanding bleeding, infection, sepsis, perforation, need for surgery . He will have an ASA of 3. Visit Charges Inpatient E&M: 11181 Subs Hosp L3
--- NOTE | 2024-06-27 14:52 | PRE.ANES_ITS ---
ASA Classification* ASA Classification ASA Classification: 3 Assessment & Plan Anesthesia* Anesthesia Assessment Anesthesia Assessment: Discussed sedation and/or anesthesia options, risks, benefits, and alternatives with patient/parents/legal guardian/POA. Questions invited. The patient/parents/legal guardian/POA seems to understand and agrees to proceed with anesthesia plan. Reviewed the physical assessment, medical history, allergy history and patient home medications list prior to surgery/procedure/anesthetic and documented any changes. Performed airway and anesthesia risk assessments. Anesthesia Type Anesthesia Type: MAC Anesthesia Focused Assessment* Temperature: 98.3 F Pulse Rate: 79 Blood Pressure: 109/71 Respiratory Rate: 18 Pulse Ox: 92 Airway Assessment Mouth opens: >3 cm Mallampati Score: II Focused Labs Anesthesia Preop lab: CBC WBC 3.5 K/mm3 (4.4-11.0) L 06/27/24 05:00 06/27/24 RBC 2.42 M/mm3 (4.6-6.2) L 06/27/24 05:00 06/27/24 Hgb 8.7 g/dL (13.0-16.5) L 06/27/24 05:00 06/27/24 Hct 26.2 % (40-54) L 06/27/24 05:00 06/27/24 Plt Count 115 K/mm3 (150-450) L 06/27/24 05:00 06/27/24 CHEMISTRY Potassium 3.5 mmol/L (3.3-5.1) 06/27/24 05:00 06/27/24 Sodium 142 mmol/L (133-145) 06/27/24 05:00 06/27/24 Magnesium 1.5 mg/dL (1.5-2.2) 06/27/24 05:00 06/27/24 Phosphorus 2.7 mg/dL (2.7-4.5) 06/27/24 05:00 06/27/24 BUN 7 mg/dL (4-19) 06/27/24 05:00 06/27/24 Creatinine 1.07 mg/dL (0.70-1.20) 06/27/24 05:00 06/27/24 Glucose 134 mg/dL (70-99) H 06/27/24 05:00 06/27/24 POC Glucose 111 mg/dL (74-106) H 06/27/24 12:18 06/27/24 TSH 1.740 uIU/mL (0.300-4.200) 06/26/24 05:25 06/08 11/02 COAG PT 17.4 SECONDS (11.7-14.9) H 06/27/24 05:00 06/09 Pre-Assessment Diagnosis/Proposed Procedure Planned Operative Procedure(s): EGD 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 When Was Last Pacemaker Check per pt last year 06/26/24 22:53 QUESTION #4 FULL TEXT: You/Your Family Experience fever (hyperthermia) with Anesthesia Last Oral Intake Last Oral intake: Last Oral Intake NPO since 00:00 06/26/24 22:53 Meds taken in AM with sips of No 06/26/24 22:53 water? 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 Has anyone observed you stop No 06/26/24 00:18 breathing during sleep? STOP Results Positive 06/26/24 00:18 QUESTION #5 FULL TEXT : Do you snore loudly (louder than talking or can be heard through closed doors)? 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 Specify any problems Hx of Preganancy in last 3 N/A 06/26/24 00:18 Months Nurse Filling Out Transfusion EYOUNG 06/26/24 00:18 & Questions: Date: 06/26/24 06/26/24 00:18 Time: 00:19 06/26/24 00:18 Patient unable to answer at this time (ie. 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 INHALATION Q2H PRN PRN SOB &/OR WHEEZING Atorvastatin Calcium 10 mg 06/26/24 10:00 06/27/24 08:17 Atorvastatin Calcium 10 Mg Tablet PO Not Given DAILY KUNAL Dicyclomine HCl 20 mg 06/26/24 07:42 06/26/24 21:41 Dicyclomine 10 Mg Capsule PO 20 mg Q6H PRN PRN Administration abdominal discomfort Folic Acid 1 mg 06/26/24 08:00 06/27/24 08:16 Folic Acid 1 Mg Tablet PO Not Given BREAKFAST KUNAL Furosemide 40 mg 06/26/24 10:00 06/27/24 08:17 Furosemide 40 Mg Tablet PO Not Given DAILY KUNAL Protocol Gabapentin 300 mg 06/27/24 10:00 06/27/24 08:19 Gabapentin 300 Mg Capsule PO Not Given DAILY KUNAL Glucagon 1 mg 06/26/24 00:39 Glucagon 1 Mg/Ml Syringe IM X1 PRN HYPOGLYCEMIA Protocol Glycerin/Hypromellose/Polyethylene 2 drp 06/26/24 21:37 06/27/24 12:22 Glycerin/Hypromellose/[id number] 15 Ml Bottle EACH EYE 2 drp Q1H PRN Administration DRY EYES Hydralazine HCl 5 mg 06/26/24 00:39 Hydralazine 20 Mg/Ml Vial IV Q8H PRN PRN SBP GREATER THAN 160 Protocol Hydralazine HCl 25 mg 06/26/24 14:00 06/27/24 05:04 Hydralazine 25 Mg Tablet PO Not Given TID KUNAL Protocol Dextrose 250 mls @ 0 mls/hr 06/26/24 00:39 Dextrose 10%-Water IV .Q0M PRN HYPOGLYCEMIA Protocol As Directed Sodium Chloride 250 mls @ 15 mls/hr 06/26/24 06:11 IV .[id number] PRN Saline Flush Sodium Chloride 250 mls @ 15 mls/hr 06/26/24 06:11 IV .[id number] PRN Additional IVPB Infusion Lactated Ringer's 1,000 mls @ 15 mls/hr 06/27/24 14:15 06/27/24 14:26 IV 15 mls/hr .Q48H KUNAL Administration Insulin Glargine 5 unit 06/26/24 12:00 06/27/24 12:21 Insulin Glargine-Yfgn 100 Unit/Ml Pen SC Not Given 1200 KUNAL Insulin Human Lispro 0 unit 06/26/24 00:39 06/27/24 12:20 Insulin Lispro 100 Unit/Ml Insuln.Pen SC Not Given Q6 KUNAL Protocol Lorazepam 0.5 mg 06/26/24 00:39 Lorazepam 2 Mg/Ml Wch Syringe IV Q4H PRN PRN AGITATION Melatonin 6 mg 06/26/24 22:22 06/26/24 22:52 Melatonin 3 Mg Tablet PO 6 mg QHS PRN PRN Administration SLEEP Metoprolol Succinate 25 mg 06/26/24 10:00 06/27/24 08:19 Metoprolol(Xl)Succ 25 Mg Tablet PO Not Given BID [facility] Protocol Morphine Sulfate 2 mg 06/26/24 00:39 06/26/24 01:59 Morphine 2 Mg/Ml Syringe IV 2 mg Q4H PRN PRN Administration Pain Score 6-10 Multivitamins 1 tablet 06/26/24 08:00 06/27/24 08:16 Multivitamins,Therapeutic Tablet [facility] Nicotine 14 mg 06/26/24 00:39 06/27/24 08:18 Nicotine 14 Mg Patch TD 14 mg DAILY [facility] Administration Ondansetron HCl 4 mg 06/26/24 00:39 Ondansetron 4 Mg/2 Ml Vial IV Q8H PRN PRN NAUSEA/VOMITING Pancrelipase 1 cap 06/27/24 08:00 06/27/24 12:[address] Capsule PO Not Given TIDCM [facility] Pantoprazole Sodium 40 mg 06/26/24 22:00 06/27/24 08:19 Pantoprazole Sodium 40 Mg Tablet PO Not Given BID [facility] Polyethylene Glycol 17 gm 06/26/24 12:45 06/27/24 08:18 Polyethylene Glycol 3350 17 Gm Packet PO Not Given BID [facility] Promethazine HCl 25 mg 06/26/24 00:39 Promethazine 25 Mg/Ml Syringe IM Q6H PRN PRN Breakthrough Nausea/Vomiting Sodium Chloride 10 - 40 ml 06/26/24 00:11 0.9 % Nacl (Sterile) Posiflush 10 Ml IV UD PRN Port access or dressing change Sodium Chloride 10 - 40 ml 06/26/24 00:11 06/27/24 05:05 0.9% Saline Lock 10 Ml Syringe IV 10 ml UD PRN Administration Midline Flush Sodium Chloride 10 - 40 ml 06/26/24 00:11 0.9% Saline Lock 10 Ml Syringe IV UD PRN SALINE FLUSH Sodium Chloride 10 - 40 ml 06/26/24 21:06 0.9% Saline Lock 10 Ml Syringe IV UD PRN SALINE FLUSH Spironolactone 12.5 mg 06/26/24 10:00 06/27/24 08:17 Spironolactone 25 Mg Tablet PO Not Given DAILY [facility] Protocol Thiamine HCl 100 mg 06/26/24 08:00 06/27/24 08:17 Thiamine Hydrochloride 100 Mg Tablet [facility] History MALIK (acute kidney injury) Seizures Alcoholic hepatitis Chronic pancreatitis Gastric wall thickening Alcohol dependence Abdominal ascites Anxiety Diabetes Pancreatitis Myocardial infarct Pacemaker AAA (abdominal aortic aneurysm) Admitted to alcohol detoxification center Alcohol abuse Hx of hypercholesterolemia History of diabetes mellitus Alcohol dependence Substance abuse Smoker Alcoholism Right bundle branch block (RBBB) Non-sustained ventricular tachycardia Thoracic aortic aneurysm SVT (supraventricular tachycardia) Ascending aortic dissection (~2005) Pure hypercholesterolemia Adrenal nodule Hiatal hernia Left carotid bruit Cardiac pacemaker in situ (~06/2016) Essential hypertension Pacemaker Sick sinus syndrome Tobacco use HTN (hypertension) Diabetes mellitus, type II Home Medications ?Medication ?Instructions ?Recorded ?Last Taken ?Type atorvastatin 10 mg tablet 10 mg PO DAILY CHOLESTEROL 0 10/17/20 04/19/23 History hydralazine 25 mg tablet 25 mg PO TID BP 10/17/2001/01 History dapagliflozin propanediol 10 mg 10 mg PO DAILY DIABETE S 09/30/21 04/19/23 History tablet (Farxiga) Held on 05/20/23. Instructions: Hold it because of MALIK. multivitamin 1 tab PO DAILY SUPPLEMENT 11/10/21 History gabapentin 300 mg capsule 300 mg PO DAILY NEUROPATHY 1 Unknown History insulin glargine 100 unit/mL (3 10 unit subcut 1200 DI ABETES 11/14/22 04/19/23 History mL) subcutaneous pen (Lantus Solostar U-100 Insulin) metformin 500 mg tablet,extended 500 mg PO BID DIABETE S 11/15/22 04/19/23 History release 24 hr Held on 05/20/23. Instructions: Hold at least 1 week . Discontinue if creatinine clearance less than 30 mill per minute L.acidophil,salivari-Bifido 2 cap PO BID #0 caps 05/19 Unknown Rx bifidum-Strep thermoph 175 mg capsule dicyclomine 10 mg capsule 20 mg (2 x 10 mg) PO Q6H PRN PRN 05/20/23 Unknown Rx abdominal discomfort #0 caps folic acid 1 mg tablet 1 mg PO DAILY@0800 #0 tabs 0 05/20/23 Unknown Rx furosemide 40 mg tablet 40 mg PO DAILY #30 tabs 05/09 03/03 Unknown Rx insulin lispro 100 unit/mL See Protocol subcut ACHS #0 mL 05/20/23 Unknown Rx subcutaneous pen (Humalog KwikPen (U-100) Insulin) metoprolol succinate 25 mg 25 mg PO BID 30 days #60 ta bs 05/20/23 Unknown Rx tablet,extended release 24 hr spironolactone 25 mg tablet 12.5 mg (1/2 x 25 mg) PO D AILY #30 05/20/23 Unknown Rx tabs thiamine HCl (vitamin B1) 100 mg 100 mg PO DAILYCM #0 tabs 05/20/23 Unknown Rx tablet (Vitamin B-1) pantoprazole 40 mg tablet,delayed 40 mg PO BID #60 tab s 06/27/23 Unknown Rx release Allergy/AdvReac Type Severity Reaction Status Date / Time No Known Allergies Allergy Verified 05/09/23 13:37 Family History Father CAD (coronary artery disease) Mother Dementia Surgical History H/O cardiac catheterization History of aortic aneurysm repair (~2016) History of cataract surgery History of hernia repair History of aortic valve replacement with bioprosthetic valve (~2016) H/O aortic valve replacement Social History household members: family housing: house Smoking Status: Current every day smoker tobacco type: cigarettes alcohol intake: current alcohol intake frequency: 0-2 drinks per day details: Reports currently ~ 2 tall boys daily. substance use type: former substance user caffeine: Yes Type: coffee Number of servings: 3 Review of Systems (Anesthesia) ROS Narrative System reviewed and no additional complaints, except as documented.
--- NOTE | 2024-06-27 15:15 | OP.EGD_ITS ---
Patient Name: Chencho Melendrez Procedure Date: 06/27/2024 2:47 PM Date of : 1960 Age: 63 Procedure: Upper GI endoscopy Indications: Epigastric abdominal pain, Cirrhosis with suspected esophageal varices Providers: Antony Espitia DO Referring MD: Rolan Garcias Do Medicines: Monitored Anesthesia Care Patient Profile: This is a 63 year old male. Refer to note in patient chart for documentation of history and physical. Patient has symptoms of acute abdominal cramping, acute abdominal distention, acute epigastric abdominal pain, acute dyspepsia and acute nausea. Complications: No immediate complications. Procedure: Pre-Anesthesia Assessment: - Prior to the procedure, a History and Physical was performed, and patient medications and allergies were reviewed. The patient is competent. The risks and benefits of the procedure and the sedation options and risks were discussed with the patient. All questions were answered and informed consent was obtained. Patient identification and proposed procedure were verified by the physician in the pre-procedure area. Mental Status Examination: alert and oriented. Airway Examination: normal oropharyngeal airway and neck mobility. Respiratory Examination: clear to auscultation. CV Examination: normal. Prophylactic Antibiotics: The patient does not require prophylactic antibiotics. Prior Anticoagulants: The patient has taken no anticoagulant or antiplatelet agents. ASA Grade Assessment: II - A patient with mild systemic disease. After reviewing the risks and benefits, the patient was deemed in satisfactory condition to undergo the procedure. The anesthesia plan was to use monitored anesthesia care (MAC). Immediately prior to administration of medications, the patient was re-assessed for adequacy to receive sedatives. The heart rate, respiratory rate, oxygen saturations, blood pressure, adequacy of pulmonary ventilation, and response to care were monitored throughout the procedure. The physical status of the patient was re-assessed after the procedure. After obtaining informed consent, the endoscope was passed under direct vision. Throughout the procedure, the patient's blood pressure, pulse, and oxygen saturations were monitored continuously. The Endoscope was introduced through the mouth, and advanced to the third part of the duodenum. Small bowel enteroscopy was deemed necessary. The upper GI endoscopy was accomplished without difficulty. The patient tolerated the procedure well. Scope In: 3:05:04 PM Scope Out: 3:07:31 PM Total Procedure Duration Time 0 hours 2 minutes 27 seconds Findings: The examined esophagus was normal. Type 1 isolated gastric varices (IGV1, varices located in the fundus) with no bleeding were found in the cardia and in the gastric fundus. There were no stigmata of recent bleeding. Severe portal hypertensive gastropathy was found in the entire examined stomach. Biopsies were taken with a cold forceps for histology. Biopsies were taken with a cold forceps for Helicobacter pylori testing. Verification of patient identification for the specimen was done. Estimated blood loss was minimal. No gross lesions were noted in the entire examined duodenum. Impression: - Normal esophagus. - Type 1 isolated gastric varices (IGV1, varices located in the fundus), without bleeding. - Portal hypertensive gastropathy. Biopsied. - No gross lesions in the entire examined duodenum. Recommendation: - [facility]. - Resume regular diet. - Continue present medications. - Await pathology results. Procedure Code(s): --- Professional --- 87788, Small intestinal endoscopy, enteroscopy beyond second portion of duodenum, not including ileum; with biopsy, single or multiple CPT copyright 2021 [employer]. All rights reserved. The codes documented in this report are preliminary and upon underwriting operations manager review may be revised to meet current compliance requirements. Antony Espitia DO 06/27/2024 3:14:55 PM This report has been signed electronically. Number of Addenda: 0 Note Initiated On: 06/27/2024 2:47 PM
--- NOTE | 2024-06-27 15:15 | OP.CCLET_ITS ---
06/27/2024 Alan Wilde Re : Upper GI endoscopy procedure for Chencho Melendrez Aguedar Fátima This procedure was performed on Thursday, June 27, 2024. My impressions and recommendations are as follows: Impressions : - Normal esophagus. - Type 1 isolated gastric varices (IGV1, varices located in the fundus), without bleeding. - Portal hypertensive gastropathy. Biopsied. - No gross lesions in the entire examined duodenum. Recommendations : - [facility]. - Resume regular diet. - Continue present medications. - Await pathology results. My findings are described in the full procedure note, which is enclosed. If I can be of further assistance, please feel free to contact me at . Sincerely, Antony Espitia, 06/27/2024 3:14:55 PM This report has been signed electronically.
--- NOTE | 2024-06-27 15:16 | PCM.POST.ANE ---
Anesthesia: Postop Eval I Current Vital Signs Temperature: 97.1 F Pulse Rate: 77 Blood Pressure: 81/61 Respiratory Rate: 18 Pulse Ox: 93 Oxygen Delivery Method: Room Air Assessment Airway patent: Yes Spontaneous unlabored respirations: Yes Mental status: Awake and Calm nausea: No Vomiting: No Anesthesia Complication: No Fluid Hydration Crystalloid volume administer (ml): 300 Total IV fluid infused: 300 Progress Note Anesthesia document: Postop Eval 1 completed: Yes
--- NOTE | 2024-06-27 15:40 | PCM.POSTANE2 ---
Anesthesia Postop Eval I Sum Postop Eval Completion status Anesthesia document: Postop Eval 1 completed: Yes Anesthesia Postop Eval I Summary Anesthesia Postop Eval I Summary: Anesthesia Postop Eval I: Assessment Summary Airway patent Yes 06/27/24 15:17 [email or web address] Spontaneous unlabored Yes 06/27/24 15:17 [email or web address] respirations Mental status Awake,Calm 06/27/24 15:17 [email or web address] nausea No 06/27/24 15:17 [email or web address] Vomiting No 06/27/24 15:17 [email or web address] Anesthesia Postop Eval I: Fluid Summary Crystalloid volume administer 300 06/27/24 15:17 [email or web address] (ml) Colloids volume administered ( ml) Blood Product volume administered (ml) Total IV fluid infused 300 06/27/24 15:17 [email or web address] Anesthesia Postop Eval I: Summary Notes Anesthesia Complication No 06/27/24 15:17 [email or web address] Anesthesia Complication Comment: Post-operative progress note Anesthesia: Postop Eval II Evaluation Mental status: Awake Pain Level: 0 nausea: No Vomiting: No
--- NOTE | 2024-06-27 16:15 | EGD_PTH ---
PATIENT: ANALILIA TALLEY LOC: [facility] U#:[id number] AGE/SX: 63/M ROOM: [facility] RE06/25/[address]: Dr. Melonie De La Rosa DO : 1960 BED: 1 DIS: 06/28/2024 SPEC #: [id number] RECD: 06/27/24 18:17 STATUS: ROMARIO RERoyce #: [id number] GENOVEVA: 06/27/24 16:[address]: Ra Nupurhsaan DEPT: SURGICAL PATHOLOGY RECD BY: Ti Warren ENTERED: 06/28/24 08:44 SP TYPE: EGD BIOPSY ENOC DR: DO Dr. Conrado Donaldson DO Dr. Kathryn Lee, DO Brittny Queden, YADIRA Tissues: A - Gastric mucous membrane Procedures: Immunohistochemical Stains Surgery Specimen Level IV HEADER OPERATION: EGD PRE-OP DIAGNOSIS: Alcoholic cirrhosis TISSUE SUBMITTED: A- Gastric body biopsy MICROSCOPIC DIAGNOSIS A. Stomach, gastric body, biopsy: Oxyntic mucosa with features of reactive gastropathy. Focal changes suggestive of fundic gland polyp. IHC negative for H.pylori organisms. MICROSCOPIC DESCRIPTION Slides are reviewed. All matched controls reacted appropriately. These tests were developed and their performance characteristics determined by [facility]. They may not have been cleared or approved by the U.[place]. Food and Drug Administration. The FDA has determined that such clearance or approval is not necessary. The above immunohistochemical/dualISH markers are ordered and reviewed by the Pathologist. GROSS DESCRIPTION A. Received in formalin in a container labeled with the patient's name, date of , and gastric body for H. pylori and path are 2 hernandes-pink fragments of mucosal tissue measuring 0.4 x 0.3 x 0.2 cm and 0.7 x 0.2 x 0.2 cm. Submitted in toto in A1. B 06-28-2024 CPT:74042,65226
[2024-06-27] MEDS: Creon 24,000 unit DR Capsule 1 CAP PO (16:37)
[2024-06-27 17:00] LABS: Bedside Glucose 122 mg/dL (74-106)
[2024-06-27] MEDS: 0.9 % NaCl (Sterile) Posiflush 10 mL IV (17:54)
[2024-06-27] MEDS: Morphine 4 MG/ML Syringe IV (17:54)
[2024-06-27] MEDS: Metoprolol(XL)Succ 25 MG Tablet PO (22:10)
[2024-06-27] MEDS: hydrALAZINE 25 MG Tablet PO (22:11)
[2024-06-27] MEDS: MELATONIN 3 MG TABLET 6 MG PO (22:11)
[2024-06-27] MEDS: Pantoprazole Sodium 40 MG Tablet PO (22:11)
[2024-06-27] MEDS: Insulin Lispro 100 UNIT/ML INSULN.PEN SC (23:37)
[2024-06-27 23:58] LABS: Bedside Glucose 216 mg/dL (74-106)
[2024-06-28 03:07] VITALS: BP 108/81; PULSE 75; RESP 16; TEMP 36.6; O2SAT 95
[2024-06-28 03:35] VITALS: BMI 23.1
[2024-06-28 05:48] VITALS: BP 119/79; PULSE 73
[2024-06-28 05:49] VITALS: BP 119/79; PULSE 73
[2024-06-28] MEDS: hydrALAZINE 25 MG Tablet PO (05:49)
[2024-06-28] MEDS: Insulin Lispro 100 UNIT/ML INSULN.PEN SC ×2 (05:49→11:31)
[2024-06-28] MEDS: Glycerin/Hypromellose/PEG400 15 ml Bottle 2 DRP EACH EYE ×2 (05:50→08:26)
[2024-06-28 06:15] LABS: Bedside Glucose 161 mg/dL (74-106)
[2024-06-28 06:35] LABS: Absolute Lymphocyte Count 1.11 X10^3/uL (0.83-4.51); Absolute Neutrophil Count 3.5 X10^3/uL (2.0-7.7); Basophil# 0.05 X10^3/uL; Basophil% 0.9 % (0-1); Eosinophil# 0.05 X10^3/uL; Eosinophils% 0.9 % (0-5); Hematocrit 28.9 % (40-54); Hemoglobin 9.5 g/dL (13.0-16.5); Lymphocyte # 1.11 X10^3/ul (0.83-4.51); Lymphocyte % 21.1 % (19-41); Mean Corp Hgb Conc 32.9 g/dL (32-36); Mean Corpuscular Hgb 35.7 pg (27.0-32.0); Mean Corpuscular Volume 108.6 fL (80-94); Mean Platelet Vol. 11.4 fl (6.2-12.0); Monocyte# 0.52 X10^3/uL; Monocyte% 9.9 % (0-10); NRBC Flagged by Analyzer 0.4 % (0-5); Neutrophil # 3.52 X10^3/uL (2.7-7.7); Neutrophil % 66.8 % (47-70); POSITIVE MORPHOLOGY YES; Platelet Count 129 K/mm3 (150-450); Red Blood Count 2.66 M/mm3 (4.6-6.2); White Blood Count 5.3 K/mm3 (4.4-11.0)
[2024-06-28 06:55] LABS: Differential Indicated SCAN CRITERIA MET
[2024-06-28 07:21] LABS: Anion Gap 7 (5-15); BUN 8 mg/dL (4-19); Calcium,Total 7.7 mg/dL (7.6-11.0); Carbon Dioxide 25.1 mmol/L (21.0-32.0); Chloride 107 mmol/L (98-108); Creatinine, Serum 1.11 mg/dL (0.70-1.20); EST Glomerular Filtration Rate 76 (>60); Estimated Creatinine Clearance 74.04 ml/min (50-250); Glucose 187 mg/dL (70-99); Potassium 4.1 mmol/L (3.3-5.1); Sodium Level 139 mmol/L (133-145)
[2024-06-28 08:21] VITALS: PULSE 78
[2024-06-28] MEDS: Gabapentin 300 MG Capsule PO (08:21)
[2024-06-28] MEDS: Furosemide 40 MG Tablet PO (08:21)
[2024-06-28] MEDS: Thiamine Hydrochloride 100 MG Tablet PO (08:21)
[2024-06-28] MEDS: Multivitamins,Therapeutic Tablet 1 TABLET PO (08:21)
[2024-06-28] MEDS: Metoprolol(XL)Succ 25 MG Tablet PO (08:21)
[2024-06-28] MEDS: Pantoprazole Sodium 40 MG Tablet PO (08:21)
[2024-06-28] MEDS: Creon 24,000 unit DR Capsule 1 CAP PO ×2 (08:22→11:31)
[2024-06-28] MEDS: Spironolactone 25 MG Tablet 12.5 MG PO (08:22)
[2024-06-28] MEDS: Atorvastatin Calcium 10 MG Tablet PO (08:22)
[2024-06-28] MEDS: Folic Acid 1 MG Tablet PO (08:22)
[2024-06-28 09:00] VITALS: BP 94/64; PULSE 78; RESP 17; TEMP 36.7; O2SAT 95
[2024-06-28] MEDS: Insulin Glargine-YFGN 100 UNIT/ML Pen SC (11:32)
[2024-06-28 11:53] LABS: Bedside Glucose 252 mg/dL (74-106)
--- NOTE | 2024-06-28 12:00 | PCM.DC.SUM ---
Providers Date of Admission: 06/25/24 Date of Discharge: 06/28/24 Primary Care Physician: YADIRA Wilde Consultations 06/26/24 00:39 Consult: Gastroenterology Routine Consulting Provider: [facility] Reason for Consult: Chronic diarrhea with large ascites and chronic EtOH abuse. EMERGENT Consult: No MD Notified: Yes Date Notified: 06/26/24 Time Notified: 06:55 Method of Notification: Text Reason For Visit: CRITICAL HYPOKALEMIA, LACTIC ACIDOSIS Diagnosis Discharge Diagnosis (1) Ascites due to alcoholic cirrhosis: Status: Acute Code(s): K70.31 - Alcoholic cirrhosis of liver with ascites (2) Lactic acidosis: Status: Acute Code(s): E87.20 - Acidosis, unspecified (3) Chronic diarrhea: Status: Chronic Code(s): K52.9 - Noninfective gastroenteritis and colitis, unspecified (4) Chronic pancreatitis: Status: Chronic Code(s): K86.1 - Other chronic pancreatitis (5) Thrombocytopenia: Status: Acute Code(s): D69.6 - Thrombocytopenia, unspecified Medications at Discharge Home Medications atorvastatin 10 mg tablet 10 mg PO DAILY CHOLESTEROL 10/17/20 hydralazine 25 mg tablet 25 mg PO TID BP 10/17/20 dapagliflozin propanediol 10 mg tablet (Farxiga) 10 mg PO DAILY DIABETES 09/30/21 multivitamin 1 tab PO DAILY SUPPLEMENT 11/11/21 gabapentin 300 mg capsule 300 mg PO DAILY NEUROPATHY 11/14/22 insulin glargine 100 unit/mL (3 mL) subcutaneous pen (Lantus Solostar U-100 Insulin) 10 unit subcut 1200 DIABETES 11/14/22 metformin 500 mg tablet,extended release 24 hr 500 mg PO BID DIABETES 11/15/22 L.acidophil,salivari-Bifido bifidum-Strep thermoph 175 mg capsule 2 cap PO BID #0 caps 05/20/23 dicyclomine 10 mg capsule 20 mg (2 x 10 mg) PO Q6H PRN PRN abdominal discomfort #0 caps 05/20/23 folic acid 1 mg tablet 1 mg PO DAILY@0800 supplement #0 tabs 05/20/23 furosemide 40 mg tablet 40 mg PO DAILY diuretic #30 tabs 05/20/23 insulin lispro 100 unit/mL subcutaneous pen (Humalog KwikPen (U-100) Insulin) See Protocol subcut ACHS #0 mL 05/20/23 metoprolol succinate 25 mg tablet,extended release 24 hr 25 mg PO BID blood pressure 30 days #60 tabs 05/20/23 spironolactone 25 mg tablet 12.5 mg (1/2 x 25 mg) PO DAILY diuretic #30 tabs 05/20/23 thiamine HCl (vitamin B1) 100 mg tablet (Vitamin B-1) 100 mg PO DAILYCM vitamin #0 tabs 05/20/23 pantoprazole 40 mg tablet,delayed release 40 mg PO BID reflux #60 tabs 06/27/23 kqivul-nhacsbcm-pipwist 24,000-76,000-120,000 unit capsule,delayed rel (Creon) 1 cap PO TIDCM #90 caps 06/28/24 tramadol 50 mg tablet 50 mg PO Q8H PRN pain #9 tabs 06/28/24 Hospital Course Operations None Procedures EGD, EKG, Paracentesis and - (Gallbladder ultrasound/CT abdomen pelvis) Summary of Care Provided Minutes Spent on Discharge: 42 Hospital Course: Mr. Melendrez is a 63-year-old white male who presented to the emergency department at [facility] on 06/26/2023 with a chief complaint of abdominal pain and chronic diarrhea. Patient reported that symptoms began several months prior to admission with chronic diarrhea. He reported he had an outpatient workup to include an EGD and colonoscopy in March [address] Mena at [facility]. This was done for anemia. He reported no acute findings were noted at that time but there was poor colon prep. Patient reported about 4 days prior to presentation his diarrhea suddenly stopped and he became severely constipated with increasing lower abdominal pain. He also complained of decreased urine output and foul-smelling urine. Patient stated he has been cutting back on his alcohol intake but did have 1 beer on Wednesday. It was a tall boy. He has had no signs of withdrawal. Vital signs on presentation to the emergency department here showed a temperature of 98.6, heart rate 104, respiratory rate was 18, blood pressure was 134/98 and pulse ox was 98% on room air. CBC showed a chronic anemia that was stable at 10.1 and thrombocytopenia which appears to be chronic with a normal white count and no left shift. Coags were mildly off with an elevated PT at 17.4 and an INR of 1.4. PTT was normal. Venous blood gas showed a pH of 7.43. Chemistry panel showed marked hypokalemia with a potassium of 2.1 and a gap of 16 with a normal serum bicarb and his serum creatinine 1.27. His blood glucose was 398. Hemoglobin A1c was obtained found to be 6.6. Lactic acid was 6.6 but trended down with IV fluids to 4.8. Liver function showed slightly elevated AST but normal ALT. Alk phos was normal. Lipase was 6. Beta hydroxybutyrate was unremarkable. TSH was normal. Lipid panel was overtly unremarkable. His total cholesterol is 74 with an LDL of 24 and an HDL of 32. EKG had no findings consistent with acute ischemia. Due to his abdominal pain, CT of the abdomen pelvis was performed and showed diffuse small bowel and colonic wall thickening that was felt to be secondary to his ascites, large abdominopelvic ascites and hepatomegaly with diffuse steatosis. Gallbladder ultrasound was ordered and performed which showed a distended gallbladder and common bile duct without evidence of obstructing stone or mass. Patient had no tenderness in the right upper quadrant whatsoever. Liver function enzymes were not consistent with bile duct abnormality. Stool studies were ordered and were unremarkable for infectious etiology and lactoferrin was negative so we do highly suspect that his chronic diarrhea is related to his chronic pancreatitis. He was started on Creon 24,000 units 3 times daily and was discharged with a prescription for this. Gastroenterology was consulted and performed an EGD and showed normal esophagus with type I isolated gastric varices in the fundus without bleeding, portal hypertensive gastropathy and biopsy was obtained and no gross lesions in the entire duodenum. Pathology for his biopsies was pending at the time of discharge. He was able to start having bowel movements again and his abdominal pain improved but did not completely resolve. A paracentesis was performed for his ascites. This was done on 06/26/2024 and yielded 2500 cc of light-colored fluid. Cultures and fluid studies were sent. Cultures were unremarkable with no organisms or cells noted. He was tolerating a regular diet without any difficulty and having less abdominal pain. I discussed the case with gastroenterology and they felt he was stable for discharge. We extensively discussed the importance of him not drinking any further and he did voiced understanding. GI did feel that he may be able to have some recovery of his liver function if he was able to stop drinking entirely. He will a follow-up appointment within the next week to see GI for ongoing management of his chronic pancreatitis and alcohol related liver disease. He is to follow-up with his primary care physician within 2 weeks. He is to continue his Lasix and Aldactone. We were able to restart his Farxiga. He is to continue to take Creon as prescribed at discharge. Discharge diagnoses: Chronic diarrhea secondary to chronic pancreatitis Abdominal pain-improving Decompensated liver cirrhosis/hepatomegaly Chronic macrocytic anemia Thrombocytopenia-chronic Hypokalemia-resolved Hypophosphatemia-resolved Constipation-resolved Lactic acidosis-resolved [id number] CAD Essential hypertension Hyperlipidemia Diabetic neuropathy GERD History of alcohol abuse History of aortic valve replacement History of sick sinus syndrome with pacemaker History of AAA History of thoracic aortic aneurysm History of heroin abuse Tobacco abuse Physical Exam Narrative Patient states overall he is feeling much better still having some lower abdominal pain but better overall. Eating well with good bowel movements. Const alert, oriented x3, no apparent distress, average body habitus and no limitations; Negative for healthy appearing or well nourished Constitutional Narrative: Upper middle-aged, white male, sitting on the edge of bed, [employer] at bedside, does not appear acutely ill but does look chronically ill, appears older than stated age, mildly agitated about his headache General Appearance: cooperative, comfortable, well kempt and well developed Exam Limitations: no limitations HEENT normocephalic, head/scalp atraumatic, hearing grossly normal bilaterally and moist oral mucous membranes HEENT Narrative: Mallampati 2, no thrush Eyes PERRL, EOMs intact bilaterally and conjunctivae normal Eyes Narrative: No scleral icterus Neck supple Neck Narrative: Trachea midline Resp normal respiratory effort, no retractions, no use of accessory muscles and clear to auscultation bilaterally Resp Narrative: Diminished diffusely but clear Auscultation: Negative for rales, rhonchi or wheezes Cardio regular rate, regular rhythm, S1 normal heart sound, S2 normal heart sound, no murmurs, no rub, no gallops and no clicks GI normal to inspection, nondistended, normoactive bowel sounds, soft to palpation and non-tender GI Narrative: No marked tenderness Extremity normal to inspection, full ROM and no clubbing, cyanosis or edema Extremity Narrative: Pedal and radial pulses are 2+ Skin skin turgor normal and no jaundice Neuro oriented x3, CN's II-XII intact bilaterally, moves all extremities and no focal motor deficits Speech: speech normal Psych affect normal Psych Narrative: Very pleasant, interacts appropriately Weight / BMI Weight Weight: 74.9 kg Body Mass Index (BMI) 23.1 ABG / Lab / Microbiology Data 06/28/24 06:15 06/28/24 06:15 Laboratory: Laboratory Results - last 24 hr 06/27/24 12:18: POC Glucose 111 H 06/27/24 16:41: POC Glucose 122 H 06/27/24 23:35: POC Glucose 216 H 06/28/24 05:46: POC Glucose 161 H 06/28/24 06:15: WBC 5.3, RBC 2.66 L, Hgb 9.5 L, Hct 28.9 L, MCV 108.6 H, MCH 35.7 H, MCHC 32.9, RDW Std Deviation 68.0 H, RDW Coeff of Kalpana 17.0 H, Plt Count 129 L, MPV 11.4, Immature Gran % (Auto) 0.400, Neut % (Auto) 66.8, Lymph % (Auto) 21.1, Graves % (Auto) 9.9, Eos % (Auto) 0.9, Baso % (Auto) 0.9, Absolute Neuts (auto) 3.5, Absolute Lymphs (auto) 1.11, Nucleated RBC % 0.4, Sodium 139, Potassium 4.1, Chloride 107, Carbon Dioxide 25.1, Anion Gap 7, BUN 8, Creatinine 1.11, Estim Creat Clear Calc 74.04, Est GFR (MDRD) Non-Af 76, BUN/Creatinine Ratio 7.0 L, Glucose 187 H, Calcium 7.7 06/28/24 11:27: POC Glucose 252 H Microbiology: Microbiology 06/26/24 00:00 Fluid - Paracentesis (Abd) Gram Stain - Final 06/26/24 00:00 Fluid - Paracentesis (Abd) Body Fluid Culture - Preliminary No growth-Final to follow 06/25/24 22:38 Stool Stool Lactoferrin - Final 06/25/24 22:38 Stool Enteric Bacteriology - Final 06/25/24 22:38 Stool Clostridioides difficile (PCR) - Final D/C Instructions Discharge Diet: Low fat / Low cholesterol Discharge Activity: Return to Normal Activity DC O2, CPAP, BIPAP Needs Home O2 Discharge instructions: No Meaningful Use Info Meaningful Use Meaningful Use Diagnoses (Choose all that apply): None applicable Ischemic Stroke Statin Dosing Therapy Reference: STATIN DOSE THERAPY REFERENCE: * Patients > 75 years receive moderate or high dose statin therapy. * Patients 75 years or YOUNGER should receive HIGH intensity statin dose unless contraindicated. You will be required to document reason for non-treatment if statin daily dose does not meet guidelines. HIGH DOSE STATIN THERAPY DAILY Atorvastatin > than or = to 40 mg Rosuvastatin > than or = to 20 mg Amlodipine + Atorvastatin > than or = to 2.5/40 mg Ezetimibe + Simvastatin 10/80 mg Simvastatin 80mg Discharge Plan Admission Admit Date/Time: 06/25/24 22:15 Primary Reason for Your Visit: Abdominal pain Attending Provider: Melonie De La Rosa Primary Care Provider: Marianna Shine CIVIL ENGINEERING PROFESSOR Consulting Providers: Conrado Pro Instructions Additional Instructions / Restrictions: 1. It is very important that you completely stop alcohol as discussed during hospitalization 2. Please take medication below for your pancreatitis as directed and continue all other medications as indicated 3. Please follow-up with Dr. Espitia as noted below to help with your liver and pancreas issues Discharge Orders/Prescriptions Prescriptions: New Creon 24,000-76,000 -120,000 unit Capsule,Delayed Release(Dr/Ec) 1 cap PO TIDCM Qty: 90 1RF tramadol 50 mg tablet 50 mg PO Q8H PRN (Reason: pain) Qty: 9 0RF Continued atorvastatin 10 mg tablet 10 mg PO DAILY hydralazine 25 mg tablet 25 mg PO TID dapagliflozin propanediol [Farxiga] 10 mg Tablet 10 mg PO DAILY multivitamin Tablet 1 tab PO DAILY insulin glargine [Lantus Solostar U-100 Insulin] 100 unit/mL (3 mL) insulin pen 10 unit subcut 1200 Patient Comments: pt stated he has not taken lantus for several days gabapentin 300 mg Capsule 300 mg PO DAILY Patient Comments: PT STATES THEY THINK THEY ARE ON THIS MEDICATION. metformin 500 mg tablet extended release 24 hr 500 mg PO BID Patient Comments: PT STATES THEY TAKE THIS ONCE DAILY. pantoprazole 40 mg tablet,delayed release (DR/EC) 40 mg PO BID Qty: 60 0RF thiamine HCl (vitamin B1) [Vitamin B-1] 100 mg Tablet 100 mg PO DAILYCM Qty: 0 0RF L.acidoph,saliva-B.bif-S.therm 175 mg Capsule 2 cap PO BID Qty: 0 0RF folic acid 1 mg Tablet 1 mg PO DAILY@0800 Qty: 0 0RF insulin lispro [Humalog KwikPen Insulin] 100 unit/mL Insulin Pen See Protocol subcut ACHS Qty: 0 0RF Protocol: 4. Sliding Scale Insulin High-Med Dosing Condition: 150-199 mg/dl = 2 units Condition: 200-259 mg/dl = 4 units Condition: 260-324 mg/dl = 6 units Condition: 325-374 mg/dl = 8 units Condition: 375-409 mg/dl = 10 units Condition: 410-449 mg/dl = 11 units Condition: Greater than 449 call physician Protocol Text: - Use for Total Daily Dose of Insulin 56-80 units - Patient who are insulin resistant or septic HIGH MEDIUM DOSING ALGORITHM furosemide 40 mg tablet 40 mg PO DAILY Qty: 30 0RF spironolactone 25 mg tablet 12.5 mg PO DAILY Qty: 30 0RF Rx Instructions: Hold if serum potassium more than 5.1. dicyclomine 10 mg Capsule 20 mg PO Q6H PRN PRN (Reason: abdominal discomfort) Qty: 0 0RF metoprolol succinate 25 mg Tablet Extended Release 24 Hr 25 mg PO BID 30 Days Qty: 60 0RF Referrals / Follow Up: Antony Espitia DO [Med Staff - Active Staff] - In 1 Week Marianna Shine NP, CIVIL ENGINEERING PROFESSOR-C [Primary Care Provider] - Within 2 Weeks Disposition Disposition (needs filled in before D/C Order can be placed): Home, Self Care Charges/Coding Visit Charges Inpatient E&M: 88568 Disch Hosp >30min
[2024-06-28 14:10] VITALS: BP 102/75; PULSE 82; RESP 18; TEMP 36.7; O2SAT 97
--- NOTE | 2024-06-28 14:21 | CASEMGMT ---
Patient has order for discharge. ELIS CM in to discuss needs at discharge. RN ZURI discussed outpatient therapy, patient agreeable to outpatient therapy, prefers [facility] and would like to utilize hospital van for transport. Patient prefers for [facility] to call patient to schedule appt. Per CM assessment patient would like glucometer script at discharge. Patient denies further needs or concerns at dischasrge. ELIS KEATING received scripts and referral sent to [facility] with request for hospital van and to call patient to schedule appt. RN CM provided glucometer script in discharge packet. RN CM updated discharge plan.
--- NOTE | 2024-06-28 15:15 | PHA.DC.MC.R ---
Pharmacy [facility] has performed discharge medication reconciliation and counseling for this patient. 1. Creon 24,000units PO TIDCM 2. Tramadol 50mg PO Q8 PRN pain The patient's discharge medication list was reviewed for discrepancies and discrepancies were resolved. The patient was counseled on the following discharge medications and changes in medications for homegoing were reviewed. The Reason for Use, instructions for use, and potential side effects were reviewed for all new medications. The patient's questions regarding all of their medications were answered. The patient was able to verbally demonstrate an understanding of their discharge medications. Medications at Discharge Home Medications atorvastatin 10 mg tablet 10 mg PO DAILY CHOLESTEROL 10/17/20 hydralazine 25 mg tablet 25 mg PO TID BP 10/17/20 dapagliflozin propanediol 10 mg tablet (Farxiga) 10 mg PO DAILY DIABETES 09/30/21 multivitamin 1 tab PO DAILY SUPPLEMENT 11/11/21 gabapentin 300 mg capsule 300 mg PO DAILY NEUROPATHY 11/14/22 insulin glargine 100 unit/mL (3 mL) subcutaneous pen (Lantus Solostar U-100 Insulin) 10 unit subcut 1200 DIABETES 11/14/22 metformin 500 mg tablet,extended release 24 hr 500 mg PO BID DIABETES 11/15/22 L.acidophil,salivari-Bifido bifidum-Strep thermoph 175 mg capsule 2 cap PO BID #0 caps 05/20/23 dicyclomine 10 mg capsule 20 mg (2 x 10 mg) PO Q6H PRN PRN abdominal discomfort #0 caps 05/20/23 folic acid 1 mg tablet 1 mg PO DAILY@0800 supplement #0 tabs 05/20/23 furosemide 40 mg tablet 40 mg PO DAILY diuretic #30 tabs 05/20/23 insulin lispro 100 unit/mL subcutaneous pen (Humalog KwikPen (U-100) Insulin) See Protocol subcut ACHS #0 mL 05/20/23 metoprolol succinate 25 mg tablet,extended release 24 hr 25 mg PO BID blood pressure 30 days #60 tabs 05/20/23 spironolactone 25 mg tablet 12.5 mg (1/2 x 25 mg) PO DAILY diuretic #30 tabs 05/20/23 thiamine HCl (vitamin B1) 100 mg tablet (Vitamin B-1) 100 mg PO DAILYCM vitamin #0 tabs 05/20/23 pantoprazole 40 mg tablet,delayed release 40 mg PO BID reflux #60 tabs 06/27/23 qkkayz-dymcsfae-gksiqdf 24,000-76,000-120,000 unit capsule,delayed rel (Creon) 1 cap PO TIDCM #90 caps 06/28/24 tramadol 50 mg tablet 50 mg PO Q8H PRN pain #9 tabs 06/28/24
--- NOTE | 2024-06-28 16:50 | PN_ITS ---
Progress Note Patient is tolerating a diet. 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 He is not showing any signs of confusion at this time. His abdomen has not become more distended and his weight is stable from yesterday. Physical Exam Const alert, oriented x3, no apparent distress and average body habitus Constitutional Narrative: Patient appears chronically ill and older than his stated age. General Appearance: cooperative HEENT normocephalic, head/scalp atraumatic and hearing grossly normal bilaterally Eyes PERRL, EOMs intact bilaterally and conjunctivae normal Neck no lymphadenopathy, supple and no JVD Resp normal respiratory effort, no retractions, no use of accessory muscles and clear to auscultation bilaterally Cardio regular rate and regular rhythm GI GI Narrative: Patient's abdomen is distended with positive fluid wave and tender to palpation diffusely with bruising in abdomen likely from insulin injections. There is no rebound or guarding. Extremity normal to inspection, full ROM and no clubbing, cyanosis or edema Skin Skin Narrative: Patient has bruising over abdomen likely from recent insulin injections. Neuro oriented x3, CN's II-XII intact bilaterally, moves all extremities and no focal motor deficits Sensorium / Orientation: awake, alert, oriented to person, oriented to place and oriented to time Speech: speech normal Psych affect normal Assessment & Plan Assessment/Plan (1) Chronic alcohol abuse: (2) Hypokalemia: (3) Chronic diarrhea: (4) Lactic acidosis: (5) Adverse drug reaction: QUALIFIERS: Encounter type: initial encounter Qualified Code(s): T50.905A - Adverse effect of unspecified drugs, medicaments and biological substances, initial encounter (6) Ascites due to alcoholic cirrhosis: (7) Macrocytosis associated with alcohol: PLAN: Plan 63-year-old with past medical history of chronic alcohol abuse complicated by macrocytosis, thrombocytopenia, coagulopathy, protein calorie malnutrition, chronic pancreatitis as seen on imaging and cirrhosis with new onset ascites. His current MELD is 20 and he has a Child-Ndiaye class B-C. A?MELD score of 20 indicates a 19.6% 3-month mortality rate, while a Child-Ndiaye class B-C indicates a?30%-82% perioperative mortality rate depending on the specific class.?These scores are used to assess the severity of liver disease and predict mortality risk in patients with cirrhosis.? - Decompensated alcoholic cirrhosis with ascites-status post large-volume paracentesis. The patient says that he has not had a drink in a long time. His labs from last year showed that he was viral hepatitis A, B and C negative. He will need to be vaccinated for hepatitis AMB as an outpatient. He also will need to be checked for HIV. He will need to be started on diuretics. He is noted as an outpatient to be on furosemide 40 mg a day and spironolactone 12.5 mg a day. His goal should be 80 mg of furosemide and 100 mg 2 200 mg of spironolactone a day. This depends on his kidney function. He should be screened for esophageal varices with an upper endoscopy. He should also get a protein electrophoresis as there is associated with a monoclonal gammopathy with alcoholic cirrhosis. - Chronic alcoholic pancreatitis-I think his weight loss and diarrhea is likely associated with exocrine pancreatic insufficiency secondary to chronic p ancreatitis and inability to secrete appropriate pancreatic enzymes for absorption. He should get a fecal elastase checked along with an IBD SGI and ESR and CRP. - Thrombocytopenia -likely secondary to splenic sequestration in the setting of cirrhosis. On his imaging he does not have significant splenomegaly. - Hepatomegaly-secondary to fatty liver disease from alcohol. He could have a significant amount of good liver left if he is able to get his ascites under control as he does not have splenomegaly. Particularly that is a reversible and at least a worsening portal hypertension and the complications associated with worsening portal hypertension. 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 he should have B12 and folate levels checked. - 500 mg sodium restriction -Further recommendation to follow Patient will undergo an upper endoscopy today. He was explained alternatives, risk and benefits including withstanding bleeding, infection, sepsis, perforation, need for surgery . He will have an ASA of 3. 06/28/[id number] class B-C with a meld of 20 and decompensated cirrhosis with large volume ascites status post paracentesis of 2.3 L of serosanguineous fluid. He is on 40 mg of furosemide and 12.5 mg of spironolactone. His kidney function is okay with maintaining a GFR of 59. He can go up on his furosemide to 80 mg a day and 100 mg of spironolactone. Patient should be on beta-maria luz therapy and is on metoprolol. He can follow-up in the clinic for further workup regarding his new diagnosis of cirrhosis. Visit Charges Inpatient E&M: 54872 Subs Hosp L3
== END 2024-06-28 15:08 | disposition home or self-care (01) | DRG 280 ==
LOC: ED 16:43 → PCU 23:07
PROVIDERS: Anesthesiology; Internal Medicine Gastroenterology; Admitting Provider Internal Medicine; Emergency Provider Surgery; PCP Nurse Practitioner Family; Referring Provider Surgery; Visit Provider Internal Medicine
PROC: 0DJ08ZZ Inspection of Upper Intestinal Tract, Via Natural or Artificial Opening Endoscopic (ICD-10-PCS; CPT 43235; principal; 2024-06-27 16:10)
DX: K70.31 Alcoholic cirrhosis of liver with ascites (principal); K70.0 Alcoholic fatty liver; E87.20 Acidosis, unspecified; E83.39 Other disorders of phosphorus metabolism; D69.6 Thrombocytopenia, unspecified; K21.9 Gastro-esophageal reflux disease without esophagitis; D47.2 Monoclonal gammopathy; K76.6 Portal hypertension; E11.65 Type 2 diabetes mellitus with hyperglycemia; I10 Essential (primary) hypertension; F10.10 Alcohol abuse, uncomplicated; D53.9 Nutritional anemia, unspecified; Z95.3 Presence of xenogenic heart valve; E11.40 Type 2 diabetes mellitus with diabetic neuropathy, unspecified; K86.1 Other chronic pancreatitis; I86.4 Gastric varices; E87.6 Hypokalemia; I25.10 Atherosclerotic heart disease of native coronary artery without angina pectoris; Z79.4 Long term (current) use of insulin; K59.00 Constipation, unspecified; I25.2 Old myocardial infarction; D75.89 Other specified diseases of blood and blood-forming organs; K31.89 Other diseases of stomach and duodenum; K52.9 Noninfective gastroenteritis and colitis, unspecified; E78.00 Pure hypercholesterolemia, unspecified; Z79.84 Long term (current) use of oral hypoglycemic drugs; R16.0 Hepatomegaly, not elsewhere classified; Z79.899 Other long term (current) drug therapy; E66.3 Overweight; Z68.26 Body mass index [BMI] 26.0-26.9, adult; Z95.0 Presence of cardiac pacemaker; T38.3X5A Adverse effect of insulin and oral hypoglycemic [antidiabetic] drugs, initial encounter; R51.9 Headache, unspecified
CPT/HCPCS: 36415; 49083; 74177; 80048; 80053; 80061; 80076; 80307; 81001; 82010; 82077; 82803; 82945; 82962; 83036; 83605; 83630; 83690; 83735; 84100; 84132; 84157; 84443; 85025; 85610; 85730; 87070; 87075; 87177; 87205; 87209; 87493; 87506; 88108; 88305; 88313; 88342; 89050; 93005; 94668; 97803; 99285; Q9967; A4216; J2405

== ENCOUNTER 2024-06-30 15:18 | Inpatient (IN) | payer MEDICAID, SELFPAY ==
[2024-06-30] VITALS (11 sets, daily range): BP systolic 132–141; BP diastolic 90–101; PULSE 54–111; RESP 17–18; TEMP 36.1–36.7; O2SAT 83–100; BMI 24.5; BMI 23.7
--- NOTE | 2024-06-30 15:59 | CT_ITS ---
PROCEDURE: ABDOMEN/PELVIS W IV CONT ONLY 06/30/2024 REASON FOR EXAM: ABDOMINAL PAIN TECHNIQUE: Abdomen and pelvis CT with intravenous contrast. Coronal and Sagittal reconstruction series were provided. PATIENT PREPARATION: Per protocol CONTRAST: 98 mL Isovue 370 One or more dose reduction techniques were used (e.g., Automated exposure control, adjustment of the mA and/or kV according to patient size, use of iterative reconstruction technique. RADIATION DOSE SUMMARY: CTDlvol: 13.3 mGy DLP: 645 mGycm COMPARISON: CT abdomen and pelvis 06/26/2019 and 05/09/2023 FINDINGS: Lung bases: Moderate bilateral pleural effusions, increased from 06/25/2024. There is cardiomegaly with prosthetic aortic valve. Cardiac leads partially imaged. Liver: The right hepatic lobe and caudate lobes are hypodense relative to the spleen, similar to prior. Subcentimeter hypodensities in the left hepatic lobe, unchanged and likely simple cysts. Portal vein appears patent. Gallbladder: No radiodense cholelithiasis. Gallbladder measures 8.7 cm in length. Spleen: Normal size. Pancreas: Diffuse atrophy with extensive calcification and prominent main pancreatic duct, unchanged. Adrenals: Unremarkable. Kidneys: No hydronephrosis or stone. Bladder: Partially distended which accentuates wall thickness Reproductive Organs: Coarse prostatic calcifications Bowel: No obstruction. There is mild wall thickening involving the cecum, similar to prior. Interval decrease in bowel wall thickening throughout the remainder of the small and large bowel compared to 06/25/2024. Appendix is unremarkable. Lymph nodes: No significant lymphadenopathy. Vasculature: Diffuse atherosclerotic calcifications of the aorta. Mild fusiform ectasia of the infrarenal abdominal aorta measuring up to 2.5 cm, unchanged. Peritoneum / Retroperitoneum: Moderate to large volume of ascites throughout the abdomen and pelvis. Bones: Degenerative changes of the spine. Healed left-sided rib fractures. Soft tissues: Diffuse anasarca. Fat containing left inguinal hernia. Postoperative changes of the right abdominal wall. CT/Abdomen/Pelvis W IV Cont ONLY IMPRESSION: 1. Persistent bowel wall thickening of the cecum, with slight interval decrease in wall thickening involving the remainder of the small and large bowel compared to CT on 06/25/2024. Findings may again be rela nellie to fluid overload, though colitis could appear similar. 2. Moderate to large volume of ascites, unchanged. 3. Moderate bilateral pleural effusions are increased from 06/25/2024. 4. Hypodensity of the right and caudate lobes of the liver, which could be the result of geographic hepatic steatosis or perfusion abnormality. Portal vein appears patent. 5. Sequela of chronic pancreatitis. Reading Location: [id number]
--- NOTE | 2024-06-30 16:00 | ED.VIS.GI ---
HPI HPI - GI History of Present Illness Chief Complaint: Abd Pain Informant: patient Narrative Narrative: 63-year-old male presenting to the emergency room reporting abdominal distention weight gain and abdominal discomfort that is preventing him from rolling over. Patient states that he was discharged from the hospital on Wednesday. He was reportedly admitted into the hospital with a history of chronic pancreatitis lactic acidosis and ascites/alcoholic cirrhosis. He was seen in consultation with Dr. Espitia. The patient states that that he underwent a procedure and took 2 L of fluid off of his abdomen. Patient states he has had minimal bowel movements. He states that he has difficulty urinating that he feels frequently he needs to go but nothing comes out. Patient states he is post to follow-up with gastroenterology next Wednesday but he called them today and they advised him to come to emergency. It is approximately 1600 hrs. on Wednesday afternoon at the time of this visit. I spoke with the hospitalist who discharged him he notes that the day of discharge the patient was eating and having bowel movements. There was no indication of renal involvement with normal creatinine. There is a history of medical noncompliance. He was noted to have a lactic acidosis which was in part contributed to metformin use trended down towards the 4.5 mateusz. Patient states that he is taking all medications that he was given at discharge. Later in his ED course after he has had some time to think about it he states that he is not sure if he is taking any diuretics. He states he remembers taking some tramadol that was prescribed but does not recall anything that would make him urinate. [facility] Medical History MALIK (acute kidney injury) Seizures Alcoholic hepatitis Chronic pancreatitis Gastric wall thickening Alcohol dependence Abdominal ascites Anxiety Diabetes Pancreatitis Myocardial infarct Pacemaker AAA (abdominal aortic aneurysm) Admitted to alcohol detoxification center Alcohol abuse Hx of hypercholesterolemia History of diabetes mellitus Alcohol dependence Substance abuse Smoker Alcoholism Right bundle branch block (RBBB) Non-sustained ventricular tachycardia Thoracic aortic aneurysm SVT (supraventricular tachycardia) Ascending aortic dissection (~2005) Pure hypercholesterolemia Adrenal nodule Hiatal hernia Left carotid bruit Cardiac pacemaker in situ (~06/2016) Essential hypertension Pacemaker Sick sinus syndrome Tobacco use HTN (hypertension) Diabetes mellitus, type II Home Medications ?Medication ?Instructions ?Recorded ?Last Taken ?Type atorvastatin 10 mg tablet 10 mg PO DAILY CHOLESTEROL 10/17/20 04/19/23 History hydralazine 25 mg tablet 25 mg PO TID BP 10/17/20 04/19/23 History dapagliflozin propanediol 10 mg 10 mg PO DAILY DIABETES 09/30/21 04/19/23 History tablet (Farxiga) multivitamin 1 tab PO DAILY SUPPLEMENT 11/11/21 11/10/21 History gabapentin 300 mg capsule 300 mg PO DAILY NEUROPATHY 11/14/22 Unknown History insulin glargine 100 unit/mL (3 5 unit subcut 1200 DIABETES 11/14/22 04/19/23 History mL) subcutaneous pen (Lantus Solostar U-100 Insulin) metformin 500 mg tablet,extended 500 mg PO BID DIABETES 11/15/22 04/19/23 History release 24 hr L.acidophil,salivari-Bifido 2 cap PO BID #0 caps 05/20/23 Unknown Rx bifidum-Strep thermoph 175 mg capsule folic acid 1 mg tablet 1 mg PO DAILY@0800 supplement #0 05/20/23 Unknown Rx tabs furosemide 40 mg tablet 40 mg PO DAILY diuretic #30 tabs 05/20/23 Unknown Rx insulin lispro 100 unit/mL See Protocol subcut ACHS #0 mL 05/20/23 Unknown Rx subcutaneous pen (Humalog KwikPen (U-100) Insulin) spironolactone 25 mg tablet 12.5 mg (1/2 x 25 mg) PO DAILY 05/20/23 Unknown Rx diuretic #30 tabs thiamine HCl (vitamin B1) 100 mg 100 mg PO DAILYCM vitamin #0 tabs 05/20/23 Unknown Rx tablet (Vitamin B-1) pantoprazole 40 mg tablet,delayed 40 mg PO BID reflux #60 tabs 06/27/23 Unknown Rx release upgnbt-pdvseecj-jacmkdz 1 cap PO TIDCM #90 caps 06/28/24 Unknown Rx 24,000-76,000-120,000 unit capsule,delayed rel (Creon) tramadol 50 mg tablet 50 mg PO Q8H PRN pain #9 tabs 06/28/24 Unknown Rx ferrous sulfate 325 mg (65 mg 325 mg PO DAILY 06/30/24 Unknown History iron) tablet (FeroSul) metoprolol tartrate 50 mg tablet 50 mg PO BID 06/30/24 Unknown History ramipril 10 mg capsule 10 mg PO DAILY 06/30/24 Unknown History Allergy/AdvReac Type Severity Reaction Status Date / Time No Known Allergies Allergy Verified 06/30/24 15:18 Family History Father CAD (coronary artery disease) Mother Dementia Surgical History H/O cardiac catheterization History of aortic aneurysm repair (~2016) History of cataract surgery History of hernia repair History of aortic valve replacement with bioprosthetic valve (~2016) H/O aortic valve replacement Social History household members: family housing: house Smoking Status: Current every day smoker tobacco type: cigarettes alcohol intake: current alcohol intake frequency: 0-2 drinks per day details: Reports currently ~ 2 tall boys daily. substance use type: former substance user caffeine: Yes Type: coffee Number of servings: 3 ROS ROS ED Constitutional Constitutional ED: Denies chills or weight loss Eyes Eyes: Denies change in vision or diplopia ENT ENT ED: Denies ear pain, rhinorrhea or sore throat Cardiovascular Cardiovascular: Denies chest pain, orthopnea, palpitations or racing heartbeat Respiratory/Chest Respiratory/Chest: Denies cough, dyspnea or orthopnea Gastrointestinal Gastrointestinal: Reports abdominal pain, constipation and other Details: Abdominal distention ; Denies diarrhea, nausea or vomiting Genitourinary Genitourinary ED: Reports urinary frequency and other Details: Decreased urinary output ; Denies dysuria or hematuria Musculoskeletal Musculoskeletal: Denies arthralgias or myalgias Integumentary Denies abscess or rash Neurologic Neurologic: Denies headache(s) or weakness Psychiatric Psychiatric: Denies anxiety, depression, suicidal ideation or suicidal thoughts Endocrine Endocrinology: Denies polydipsia, polyphagia or polyuria Allergic/Immunologic Allergic/Immunologic ED: Denies mouth swelling, tongue swelling or urticaria EXAM Physical Exam Const Vital Signs: 06/30/24 15:19 06/30/24 16:45 06/30/24 16:46 Temperature 97.2 F L Temperature Source Temporal Pulse Rate 54 L Respiratory Rate 18 Blood Pressure 141/97 H Blood Pressure Mean 111 Pulse Ox 100 83 95 Oxygen Delivery Method Room Air Room Air Nasal Cannula Oxygen Flow Rate (L/min) 2 06/30/24 18:00 06/30/24 18:18 06/30/24 19:00 Temperature 98.0 F Temperature Source Pulse Rate 99 60 Respiratory Rate 17 18 Blood Pressure 132/92 H 135/90 H Blood Pressure Mean 105 105 Pulse Ox 91 88 91 Oxygen Delivery Method Room Air Room Air Oxygen Flow Rate (L/min) 06/30/24 19:00 Temperature 98.1 F Temperature Source Oral Pulse Rate 60 Respiratory Rate 18 Blood Pressure 135/90 H Blood Pressure Mean 105 Pulse Ox 91 Oxygen Delivery Method Room Air Oxygen Flow Rate (L/min) Positive well nourished and well developed General Appearance ED: well developed, NAD and pallor HEENT Reports normocephalic, head/scalp atraumatic and moist mucous membranes Eyes PERRL and EOMs intact bilaterally Neck no lymphadenopathy, supple and no JVD Resp normal respiratory effort and clear to auscultation bilaterally Cardio regular rate and regular rhythm Cardio Narrative: 3/6 systolic murmur GI GI Narrative: The abdomen is still soft it is not tense. There is some ascites noted. He does not complain of pain on palpation. Palpation: soft Back/Spine no CVA tenderness and normal ROM Extremity normal to inspection General Extremety ED: Yes edema General Extremity: edema bilateral upper extremity mild and lower extremity Details: mild Neuro oriented x3 and CN's II-XII intact bilaterally Sensorium / Orientation: alert Motor Exam: strength 5/5 throughout Psych mental status grossly normal Mood & Affect: Negative for depressed or tearful Skin no rashes or lesions noted and no wounds Skin Narrative: Areas of bruising and skin petechiae are noted on extremities and face General Skin Exam: pallor MDM MDM MDM Narrative Medical decision making narrative: Differential diagnosis includes but not limited to alcoholic cirrhosis volume overload pleural effusions ascites acute kidney injury electrolyte abnormalities My independent interpretation of the chest x-ray is bilateral pleural effusions with atelectasis. CT of the pelvis demonstrates ascites and thickened cecum. Please see radiologist full read. White count is 7 hemoglobin 10.2 platelet count of 158 INR is 1.2 creatinine is elevated compared to 2 days ago at 1.41 when it was 1.1. AST of 55 alcohol is negative. Patient has had some positional hypoxia at rest sometimes down to around 86% particular with laying flat or on his side. If I have him sitting up he is around 90%. With ambulation he drops into the 80s and becomes tachycardic around 130 he is dyspneic and then recovers with rest. He has had and his own description about 25 pound weight gain fluid but is unclear of what timeframe this is. He does appear edematous. I do not know if he has been taking his diuretic and neither does he. He would like to go home we talked about the risk benefit of going home in the setting of an MALIK volume overloaded not knowing if he is taking his diuretics. Using shared decision making we agreed to admit the patient for IV diuresis. History & Record Review Discussion w/independent historian: Patient Additional record(s) reviewed:: Prior inpatient record, Prior ED visit and Prior labs Lab Data Attestation: I reviewed the patient's lab results. Labs: Laboratory Results - last 24 hr 06/30/24 06/30/24 15:58 16:50 WBC 7.0 RBC 2.82 L Hgb 10.2 L Hct 31.1 L MCV 110.3 H MCH 36.2 H MCHC 32.8 RDW Std Deviation 66.4 H RDW Coeff of Kalpana 16.2 H Plt Count 158 MPV 11.7 Immature Gran % (Auto) 0.300 Neut % (Auto) 75.0 H Lymph % (Auto) 14.4 L Coke % (Auto) 9.1 Eos % (Auto) 0.3 Baso % (Auto) 0.9 Absolute Neuts (auto) 5.3 Absolute Lymphs (auto) 1.01 Nucleated RBC % 0 Polychromasia 2+ Anisocytosis 2+ PT 15.9 H INR 1.2 APTT 29.0 Sodium 135 Potassium 4.2 Chloride 101 Carbon Dioxide 24.7 Anion Gap 9 BUN 11 Creatinine 1.41 H Estim Creat Clear Calc 58.60 Est GFR (MDRD) Non-Af 57 L BUN/Creatinine Ratio 7.7 L Glucose 159 H Lactic Acid 1.4 Calcium 8.2 Total Bilirubin 0.45 Direct Bilirubin 0.27 AST 55 H ALT 34 Alkaline Phosphatase 117 Total Protein 5.1 L Albumin 2.5 L Globulin 2.6 Lipase 6 L Urine Color Yellow Urine Clarity Sl. Cloudy Urine pH 6.0 Ur Specific Calera 1.020 Urine Protein 30 H Urine Glucose (UA) Normal Urine Ketones 5 H Urine Occult Blood Negative Urine Nitrite Negative Urine Bilirubin 1 H Urine Urobilinogen Normal Ur Leukocyte Esterase 25 H Urine RBC 0-5 SEEN Urine WBC 0-5 SEEN Ur Squamous Epith Cells 0-5 SEEN Urine Bacteria 0 SEEN Urine Mucus 0 SEEN Ethyl Alcohol < 10.1 Radiography Diagnostic Testing: Clinical Impression(s) from Imaging Studies Abdomen/Pelvis CT 06/30/24 15:59 IMPRESSION: 1. Persistent bowel wall thickening of the cecum, with slight interval decrease in wall thickening involving the remainder of the small and large bowel compared to CT on 06/25/2024. Findings may again be related to fluid overload, though colitis could appear similar. 2. Moderate to large volume of ascites, unchanged. 3. Moderate bilateral pleural effusions are increased from 06/25/2024. 4. Hypodensity of the right and caudate lobes of the liver, which could be the result of geographic hepatic steatosis or perfusion abnormality. Portal vein appears patent. 5. Sequela of chronic pancreatitis. Reading Location: [facility] Chest X-Ray 06/30/24 17:05 IMPRESSION: 1. Moderate bilateral pleural effusions. 2. Linear opacity at the left mid lung zone may represent extension of pleural fluid, atelectasis, or infection. 3. Nodular opacities at the right perihilar region, possibly calcified lymph nodes. Consider CT Chest if patient has risk factors for malignancy. 4. Cardiomegaly. Reading Location: [id number] Management Discussion w/another healthcare provider: Hospitalist Discharge Plan Dx/Rx/DC Orders Clinical Impression: Ascites due to alcoholic cirrhosis, Pleural effusion, Hypoxia, Volume overload, MALIK (acute kidney injury) Disposition Disposition: Acute Care Hospital [facility]
[2024-06-30 16:51] LABS: Absolute Lymphocyte Count 1.01 X10^3/uL (0.83-4.51); Absolute Neutrophil Count 5.3 X10^3/uL (2.0-7.7); Basophil# 0.06 X10^3/uL; Basophil% 0.9 % (0-1); Eosinophil# 0.02 X10^3/uL; Eosinophils% 0.3 % (0-5); Hematocrit 31.1 % (40-54); Hemoglobin 10.2 g/dL (13.0-16.5); Lymphocyte # 1.01 X10^3/ul (0.83-4.51); Lymphocyte % 14.4 % (19-41); Mean Corp Hgb Conc 32.8 g/dL (32-36); Mean Corpuscular Hgb 36.2 pg (27.0-32.0); Mean Corpuscular Volume 110.3 fL (80-94); Mean Platelet Vol. 11.7 fl (6.2-12.0); Monocyte# 0.64 X10^3/uL; Monocyte% 9.1 % (0-10); NRBC Flagged by Analyzer 0 % (0-5); Neutrophil # 5.26 X10^3/uL (2.7-7.7); POSITIVE MORPHOLOGY YES; Platelet Count 158 K/mm3 (150-450); RBC Distribution Width CV 16.2 % (11.6-14.6); RBC Distribution Width SD 66.4 fl (35.1-43.9); Red Blood Count 2.82 M/mm3 (4.6-6.2)
[2024-06-30 17:00] LABS: Bacteria 0 SEEN /hpf (None Seen); Mucous, Urine 0 SEEN /hpf (<or=2+)
--- NOTE | 2024-06-30 17:05 | RAD_ITS ---
PROCEDURE: CHEST 1 VIEW (PORTABLE) 06/30/2024 REASON FOR EXAM: PLEURAL EFFUSION TECHNIQUE: Frontal view of the chest. COMPARISON: CT abdomen and pelvis on 06/30/2024 and 06/26/2019 FINDINGS: Hardware: Left chest cardiac device with leads over the right atrium and right ventricle. Heart: Heart is enlarged. Lungs: There is linear opacity at the left mid lung zone. Interstitial markings are diffusely increased. Nodular opacities at the right perihilar region. Moderate bilateral pleural effusions. Bones: Median sternotomy wires. Other: Surgical clips in the right axilla. RAD/Chest 1 View (Portable) IMPRESSION: 1. Moderate bilateral pleural effusions. 2. Linear opacity at the left mid lung zone may represent extension of pleural fluid, atelectasis, or infection. 3. Nodular opacities at the right perihilar region, possibly calcified lymph n odes. Consider CT Chest if patient has risk factors for malignancy. 4. Cardiomegaly. Reading Location: [id number]
[2024-06-30 17:09] LABS: Lactic Acid 1.4 mmol/L (0.0-2.0)
[2024-06-30 17:11] LABS: AST(SGOT) 55 U/L (<=37); Alanine Aminotransfer ALT/SGPT 34 U/L (<=46); Albumin, Serum 2.5 g/dL (3.4-4.8); Alkaline Phosphatase 117 U/L (40-129); Anion Gap 9 (5-15); BUN 11 mg/dL (4-19); BUN/Creat Ratio 7.7 RATIO (10-20); Bilirubin, Direct 0.27 mg/dL (0.00-0.30); Calcium,Total 8.2 mg/dL (7.6-11.0); Carbon Dioxide 24.7 mmol/L (21.0-32.0); Chloride 101 mmol/L (98-108); Creatinine, Serum 1.41 mg/dL (0.70-1.20); EST Glomerular Filtration Rate 57 (>60); Globulin 2.6 g/dL (2.2-4.2); Glucose 159 mg/dL (70-99); Lipase 6 U/L (13-75); Potassium 4.2 mmol/L (3.3-5.1); Protein, Total 5.1 g/dL (5.9-8.4); Sodium Level 135 mmol/L (133-145); Total Bilirubin 0.45 mg/dL (0.00-1.30)
[2024-06-30 17:15] LABS: Alcohol, Blood (Medical)-Serum < 10.1 mg/dL (<=10.0)
[2024-06-30 17:31] LABS: Color, Urine Yellow (Yellow); Glucose, Dipstick Normal (Normal); Ketone-Dipstick 5 mg/dl (Negative); Leukocyte Esterase-Dipstick 25 /ul (Negative); Nitrite-Dipstick Negative (Negative); Occult Blood-Urine Negative /ul (Negative); Protein-Dipstick 30 mg/dl (Negative); Urine Clarity Sl. Cloudy (Clear); Urine Urobilinogen Normal (Normal)
[2024-06-30 17:37] LABS: Urine Bilirubin Dipstick 1 mg/dL (Negative)
[2024-06-30 18:15] LABS: Differential Indicated SCAN CRITERIA MET
[2024-06-30 18:25] LABS: International Normalized Ratio 1.2; Prothrombin Time (Protime)PT. 15.9 SECONDS (11.7-14.9)
[2024-06-30 18:58] LABS: Anisocytosis 2+; Polychromasia 2+
[2024-06-30 19:23] LABS: Red Blood Cells-Urine 0-5 SEEN /hpf (0-5); Squamous Epithelial Cells - UA 0-5 SEEN /hpf (0-5); White Blood Cells 0-5 SEEN /hpf (0-5)
[2024-06-30] MEDS: Furosemide 100 MG/10 ML Vial 80 MG IV (19:28)
--- NOTE | 2024-06-30 19:31 | HP.PCM.HOS_ITS ---
[facility] - General General Date of Admission: 06/30/24 Date of Service: 06/30/24 Chief Complaint: SOB, Abdominal Pain and Worsening Abdominal Distention. HPI Narrative ANALILIA MELENDREZ, is a 63 M with a past medical history of essential hypertension; on metoprolol twice daily, hydralazine 3 times daily, furosemide and spironolactone, hyperlipidemia; on atorvastatin, chronic tobacco abuse, history of heroin abuse; with patient denying abuse for ~10 years, DM-2; on insulin glargine 10 units sq daily, insulin lispro AC/HS, dapagliflozin and metformin, diabetic neuropathy; on gabapentin, CAD; s/p KS, history of mechanical aortic valve replacement (2014) followed by bioprosthetic aortic valve replacement (~2016), history of SSS; s/p PPM (2016), history of RBBB, history of NSVT, history of AAA, history of thoracic aortic aneurysm with dissection (~2005 & ~2016 at [facility]), chronic EtOH abuse; with patient admitting to ~2-3 forty ounce beers daily on supplemental thiamine and folate, history of alcoholic hepatitis, history of chronic pancreatitis, history of seizures; likely due to EtOH withdrawal, history of MALIK, GERD with hiatal hernia; on pantoprazole twice daily, history of hernia; s/p repair, generalized anxiety and recent admission here from June 25, 2024 to June 28, 2024 for treatment of Critical Hypokalemia in the setting of Chronic Diarrhea along with Lactic Acidosis in the setting of Chronic EtOH Abuse with CT evidence of diffuse small bowel and colonic wall thickening, likely secondary to ascites with hepatomegaly and diffuse steatosis with patient subsequently undergoing paracentesis on June 26, 2024 that yielded ~2.5L of aspirate and EGD on June 27, 2024 that revealed n ormal esophagus with Type-I isolated gastric varices in the fundus without bleeding along with evidence of portal hypertensive gastropathy with patient started on Creon 24K units TID in addition to furosemide and spironolactone who now re-presents to [facility] ER complaining of SOB, abdominal pain and worsening abdominal distention. Mr. Melendrez reports that he has had problems ever since he was discharged with the rapid-onset of abdominal distention and weight gain with generalized pain that made it difficult for him to roll over. He also admits to having minimal bowel movements and he appears to not have been taking his diuretics as prescribed in the setting of previously known medical noncompliance. More specifically, he remembers taking some tramadol and his other medications - but he does not remember any furosemide or spironolactone. Shortly after arrival he was noted to have an oxygen saturation of ~83% prompting application of supplemental oxygenation and re-hospitalization. He admits to urinary frequency but there was no report of associated fevers, chills, visual changes, nausea, vomiting, diarrhea, chest pain, dysuria, hematuria, rash or headache. In the ER he was noted to have a CT scan of the abdomen and pelvis that revealed p ersistent bowel wall thickening of the cecum, with interval decrease in wall thickening involving the remainder of small and large bowel compared to previous CT on June 22, 2024 with [id number] volume ascites, unchanged in addition to moderate bilateral pleural effusions are increased from previous CT with hypodensity of the Right and caudate lobes of he liver which could be the result of geographic hepatic steatosis or perfusion abnormality. He was then diagnosed with Acute Volume Overload with reaccumulation of Ascites and worsening Pleural Effusions due to Medical Noncompliance with diuretic therapy complicated by clinical evidence of Acute Respiratory Insufficiency requiring 2L NC with a negative UDS and undetectable SUSAN and he was then admitted to the general medical floor for ongoing care for a stay that is expected to extend beyond 2 midnights. [facility] Medical History MALIK (acute kidney injury) Seizures Alcoholic hepatitis Chronic pancreatitis Gastric wall thickening Alcohol dependence Abdominal ascites Anxiety Diabetes Pancreatitis Myocardial infarct Pacemaker AAA (abdominal aortic aneurysm) Admitted to alcohol detoxification center Alcohol abuse Hx of hypercholesterolemia History of diabetes mellitus Alcohol dependence Substance abuse Smoker Alcoholism Right bundle branch block (RBBB) Non-sustained ventricular tachycardia Thoracic aortic aneurysm SVT (supraventricular tachycardia) Ascending aortic dissection (~2005) Pure hypercholesterolemia Adrenal nodule Hiatal hernia Left carotid bruit Cardiac pacemaker in situ (~06/2016) Essential hypertension Pacemaker Sick sinus syndrome Tobacco use HTN (hypertension) Diabetes mellitus, type II Home Medications ?Medication ?Instructions ?Recorded ?Last Taken ?Type atorvastatin 10 mg tablet 10 mg PO DAILY CHOLESTEROL 0 10/17/20 04/19/23 History hydralazine 25 mg tablet 25 mg PO TID BP 10/17/2001/01 History dapagliflozin propanediol 10 mg 10 mg PO DAILY DIABETE S 09/30/21 04/19/23 History tablet (Farxiga) multivitamin 1 tab PO DAILY SUPPLEMENT 11/10/21 History gabapentin 300 mg capsule 300 mg PO DAILY NEUROPATHY 1 Unknown History insulin glargine 100 unit/mL (3 5 unit subcut 1200 MAC BETES 11/14/22 04/19/23 History mL) subcutaneous pen (Lantus Solostar U-100 Insulin) metformin 500 mg tablet,extended 500 mg PO BID DIABETE S 11/15/22 04/19/23 History release 24 hr L.acidophil,salivari-Bifido 2 cap PO BID #0 caps 05/19 Unknown Rx bifidum-Strep thermoph 175 mg capsule folic acid 1 mg tablet 1 mg PO DAILY@0800 supplemen t #0 05/20/23 Unknown Rx tabs furosemide 40 mg tablet 40 mg PO DAILY diuretic #30 tabs 05/20/23 Unknown Rx insulin lispro 100 unit/mL See Protocol subcut ACHS #0 mL 05/20/23 Unknown Rx subcutaneous pen (Humalog KwikPen (U-100) Insulin) spironolactone 25 mg tablet 12.5 mg (1/2 x 25 mg) PO D AILY 05/20/23 Unknown Rx diuretic #30 tabs thiamine HCl (vitamin B1) 100 mg 100 mg PO DAILYCM vit padilla #0 tabs 05/20/23 Unknown Rx tablet (Vitamin B-1) pantoprazole 40 mg tablet,delayed 40 mg PO BID reflux #60 tabs 06/27/23 Unknown Rx release [id number]-[id number] 1 cap PO TIDCM #90 caps 06/09 03/04 Unknown Rx 24,000-76,000-120,000 unit capsule,delayed rel (Creon) tramadol 50 mg tablet 50 mg PO Q8H PRN pain #9 tab s 06/28/24 Unknown Rx ferrous sulfate 325 mg (65 mg 325 mg PO DAILY 06/30/24 Unknown History iron) tablet (FeroSul) metoprolol tartrate 50 mg tablet 50 mg PO BID 06/30/24 Unknown History ramipril 10 mg capsule 10 mg PO DAILY 06/30/24 Unkn own History Allergy/AdvReac Type Severity Reaction Status Date / Time No Known Allergies Allergy Verified 06/30/24 15:18 Family History Father CAD (coronary artery disease) Mother Dementia Surgical History H/O cardiac catheterization History of aortic aneurysm repair (~2017) History of cataract surgery History of hernia repair History of aortic valve replacement with bioprosthetic valve (~2016) H/O aortic valve replacement Social History household members: family housing: house Smoking Status: Current every day smoker tobacco type: cigarettes alcohol intake: current alcohol intake frequency: 0-2 drinks per day details: Reports currently ~ 2 tall boys daily. substance use type: former substance user caffeine: Yes Type: coffee Number of servings: 3 ROS ROS Narrative Review of Systems: Constitutional: Patient admits to weight gain but he denies fever or chills. Eyes: Patient denies changes in vision or discharge from eyes. ENT: Patient denies runny nose, sore throat or ear pain. Resp: Patient admits to HENRY that progressed to SOB at rest. CV: Patient denies chest pain, palpitations or heart racing. GI: Patient admits to abdominal pain, distention and constipation as per HPI. : Patient admits to urinary frequency but he denies dysuria or hematuria. MSK: Patient denies arthralgias or myalgias. Skin: Patient denies rash, abscess, wounds or jaundice. Psych: Patient denies symptoms of uncontrolled depression or anxiety. Neuro: Patient denies headache, paresthesias or focal neurologic deficits. Allergy: Patient denies lip swelling, tongue swelling or urticaria. Hematology: Patient denies easy bleeding or easy bruisability. Endocrinology: Patient admits to polyuria but be denies polydipsia, polyphagia or heat/cold intolerance. 14 point ROS otherwise negative except for positives noted above. Vital Signs Vital Signs Vital Signs: 06/30/24 15:19 06/30/24 16:45 06/30/24 16:46 Temperature 97.2 F L Temperature Source Temporal Pulse Rate 54 L Respiratory Rate 18 Blood Pressure 141/97 H Blood Pressure Mean 111 Pulse Ox 100 83 95 Oxygen Delivery Method Room Air Room Air Nasal Cannula Oxygen Flow Rate (L/min) 2 06/30/24 18:00 06/30/24 18:18 06/30/24 19:00 Temperature 98.0 F Temperature Source Pulse Rate 99 60 Respiratory Rate 17 18 Blood Pressure 132/92 H 135/90 H Blood Pressure Mean 105 105 Pulse Ox 91 88 91 Oxygen Delivery Method Room Air Room Air Oxygen Flow Rate (L/min) Weight Weight: 175 lb 9.6 oz Body Mass Index (BMI) 24.5 Physical Exam Const alert, oriented x3 and average body habitus Constitutional Narrative: Mild distress noted. General Appearance: cooperative HEENT normocephalic, head/scalp atraumatic, hearing grossly normal bilaterally and moist oral mucous membranes Eyes PERRL, EOMs intact bilaterally and conjunctivae normal Neck no lymphadenopathy, supple and no JVD Resp Resp Narrative: Diminished breath sounds at bases. Cardio regular rate and regular rhythm Cardio Narrative: ~3/6 SOURAV @ LSB. GI soft to palpation and non-tender GI Narrative: Patient noted to have ascites with fluid wave and distention. Extremity normal to inspection and full ROM Extremity Narrative: Patient has ~1+ edema in all 4 extremities. Skin Skin Narrative: Areas of petechiae and bruising are noted on face and extremities. Neuro oriented x3, CN's II-XII intact bilaterally, moves all extremities and no focal motor deficits Sensorium / Orientation: awake, alert, oriented to person, oriented to place and oriented to time Speech: speech normal Psych affect normal Results Medical Records Data Attestation: I reviewed the patient's medical records Lab / Micro Data Attestation: I reviewed the patient's lab results. 07/01/24 04:55 07/01/24 04:55 Labs: Laboratory Results - last 24 hr 06/30/24 15:58: WBC 7.0, RBC 2.82 L, Hgb 10.2 L, Hct 31.1 L, MCV 110.3 H, MCH 36.2 H, MCHC 32.8, RDW Std Deviation 66.4 H, RDW Coeff of Kalpana 16.2 H, Plt Count 158, MPV 11.7, Immature Gran % (Auto) 0.300, Neut % (Auto) 75.0 H, Lymph % (Auto) 14.4 L, Cochran % (Auto) 9.1, Eos % (Auto) 0.3, Baso % (Auto) 0.9, Absolute Neuts (auto) 5.3, Absolute Lymphs (auto) 1.01, Nucleated RBC % 0, Polychromasia 2+, Anisocytosis 2+, PT 15.9 H, INR 1.2, APTT 29.0, Sodium 135, Potassium 4.2, Chloride 101, Carbon Dioxide 24.7, Anion Gap 9, BUN 11, Creatinine 1.41 H, Estim Creat Clear Calc 58.60, Est GFR (MDRD) Non-Af 57 L, BUN/Creatinine Ratio 7.7 L, Glucose 159 H, Lactic Acid 1.4, Calcium 8.2, Total Bilirubin 0.45, Direct Bilirubin 0.27, AST 55 H, ALT 34, Alkaline Phosphatase 117, Total Protein 5.1 L, Albumin 2.5 L, Globulin 2.6, Lipase 6 L, Ethyl Alcohol < 10.1 06/30/24 16:50: Urine Color Yellow, Urine Clarity Sl. Cloudy, Urine pH 6.0, Ur Specific Benedict 1.020, Urine Protein 30 H, Urine Glucose (UA) Normal, Urine Ketones 5 H, Urine Occult Blood Negative, Urine Nitrite Negative, Urine Bilirubin 1 H, Urine Urobilinogen Normal, Ur Leukocyte Esterase 25 H, Urine RBC 0-5 SEEN, Urine WBC 0-5 SEEN, Ur Squamous Epith Cells 0-5 SEEN, Urine Bacteria 0 SEEN, Urine Mucus 0 SEEN Imaging Radiology Impression Abdomen/Pelvis CT 06/30/24 15:59 IMPRESSION: 1. Persistent bowel wall thickening of the cecum, with slight interval decrease in wall thickening involving the remainder of the small and large bowel compared to CT on 06/25/2024. Findings may again be related to fluid overload, though colitis could appear similar. 2. Moderate to large volume of ascites, unchanged. 3. Moderate bilateral pleural effusions are increased from 06/25/2024. 4. Hypodensity of the right and caudate lobes of the liver, which could be the result of geographic hepatic steatosis or perfusion abnormality. Portal vein appears patent. 5. Sequela of chronic pancreatitis. Reading Location: [id number] Chest X-Ray 06/30/24 17:05 IMPRESSION: 1. Moderate bilateral pleural effusions. 2. Linear opacity at the left mid lung zone may represent extension of pleural fluid, atelectasis, or infection. 3. Nodular opacities at the right perihilar region, possibly calcified lymph nodes. Consider CT Chest if patient has risk factors for malignancy. 4. Cardiomegaly. Reading Location: [id number] Assessment & Plan Assessment/Plan (1) Volume overload: QUALIFIERS: Hypervolemia type: other Qualified Code(s): E87.79 - Other fluid overload (2) Elevated troponin: (3) Ascites due to alcoholic cirrhosis: (4) Pleural effusion: (5) Respiratory insufficiency: (6) Medically noncompliant: (7) Conjunctivitis: QUALIFIERS: Acute conjunctivitis type: unspecified Conjunctivitis type: acute Laterality: right Qualified Code(s): H10.31 - Unspecified acute conjunctivitis, right eye PLAN: Plan 1. Acute Volume Overload with reaccumulation of Ascites and worsening Pleural Effusions with corresponding NT pro-BNP II of 26,213 pg/mL present on admission with elevated troponin likely due to Acute Cardiac Strain - Admit to general medical floor with telemetric monitoring. Continue IV furosemide and spironolactone and follow strict I's & O's. Patient was treated in ER with IV albumin to expand intravascular volume to allow for diuresis and paracentesis. Patient would likely benefit from repeat paracentesis when these services become available. Give acetaminophen as needed for pain or fever. 2. Acute Respiratory Insufficiency due to #1 - Wean supplemental oxygen. 3. Medical Noncompliance with diuretics precipitating #1 & #2 - Patient was encouraged to take his diuretics as prescribed to avoid serial readmission. 4. Conjunctivitis OD this admission adding to the medical complexity of #1 - #3 - Patient started on ciprofloxacin eye drops. 5. Recent admission here from June 25, 2024 to June 28, 2024 for treatment of Critical Hypokalemia in the setting of Chronic Diarrhea along with Lactic Acidosis in the setting of Chronic EtOH Abuse with CT evidence of diffuse small bowel and colonic wall thickening, likely secondary to ascites with hepatomegaly and diffuse steatosis with patient subsequently undergoing paracentesis on June 26, 2024 that yielded ~2.5L of aspirate and EGD on June 27, 2024 that revealed n ormal esophagus with Type-I isolated gastric varices in the fundus without bleeding along with evidence of portal hypertensive gastropathy with patient started on Creon 24K units TID in addition to furosemide and spironolactone adding to the burden of disease outlined from #1 - #4 - Noted. 6. Chronic EtOH abuse; with patient admitting to ~2-3 forty ounce beers daily on supplemental thiamine and folate with history of alcoholic hepatitis, history of chronic pancreatitis and history of seizures; likely due to EtOH withdrawal - Noted with undetectable SUSAN and lipase of 6 U/L present on admission. Patient states he only had 1 tall boy few days ago. Nevertheless, he will be covered with phenobarbital taper to prevent potential withdrawal. 7. Essential hypertension; on metoprolol twice daily, hydralazine 3 times daily, furosemide and spironolactone - Maintain home regimen. 8. Hyperlipidemia; on atorvastatin - Resume statin. 9. Chronic tobacco abuse - Tobacco Cessation will be strongly encouraged with Nicotine patch offered to control cravings. 10. History of heroin abuse; with patient denying abuse for ~10 years - Noted with negative UDS. 11. DM-2; on insulin glargine 10 units sq daily, insulin lispro AC/HS, dapagliflozin and metformin plus diabetic neuropathy; on gabapentin - Resume current regimen. 12. CAD; s/p KS - Stable. 13. History of mechanical aortic valve replacement (2014) followed by bioprosthetic aortic valve replacement (~2016) - Noted. 14. History of SSS; s/p PPM (2017) - Noted. 15. History of RBBB - Noted. 16. History of NSVT - Noted. 17. History of AAA - Stable. 18. History of thoracic aortic aneurysm with dissection (~2005 & ~2016 at [facility]) - Stable. 19. History of MALIK - Noted. 20. GERD with hiatal hernia; on pantoprazole twice daily - Resume PPI. 21. History of hernia; s/p repair - Noted. 22. Generalized anxiety - Give oral hydroxyzine prn for breakthrough symptoms. 23. DVT prophylaxis - SCD's only with impending repeat paracentesis. Total time: Approximately (but not less than) 75 minutes. Charges/Coding Visit Charges Inpatient E&M: 34114 Init Hosp L3
[2024-06-30] MEDS: Albumin Human 25% (100 mL) 25 GM/100 ML BAG IV (19:38)
[2024-06-30 20:08] LABS: Blood Gas Specimen Type VEN; O2 Delivery Device Room Air; SITE Not entered; VBG BASE EXCESS 2 mmol/L (-1.0-3.5); VBG Bicarbonate 28 mmol/L (22-26); VBG PO2 24 mmHg (25-40); VBG SO2 37 % (50-70); VBG TCO2 29 mmol/L (23-33); VBG pCO2 51.8 mmHg (41-51); VBG pH 7.34 (7.32-7.42)
[2024-06-30 20:11] LABS: Magnesium 1.6 mg/dL (1.5-2.2)
[2024-06-30 21:06] LABS: Pro- Brain NATRIURETIC PEPTIDE 26213 pg/mL (<=900)
[2024-06-30] MEDS: Phenobarbital 32.4 MG Tablet 97.2 MG PO (21:29)
[2024-06-30] MEDS: Lactobacillis Acidophilus 2 CAP PO (21:30)
[2024-06-30] MEDS: Pantoprazole Sodium 40 MG Tablet PO (21:30)
[2024-06-30] MEDS: hydrALAZINE 25 MG Tablet PO (21:31)
[2024-06-30] MEDS: Metoprolol Tartrate 50 MG Tablet PO (21:32)
[2024-06-30 21:44] LABS: Troponin T High Sensitivity 93 ng/L (<=22)
[2024-06-30 22:16] LABS: Bedside Glucose 123 mg/dL (74-106)
[2024-06-30 23:39] LABS: Troponin T High Sens 2 HR 98 ng/L (<=22)
[2024-06-30] MEDS: Ciprofloxacin 0.3% 2.5ml Bottle 1 DRP RIGHT EYE (23:49)
[2024-07-01] VITALS (18 sets, daily range): BP systolic 84–124; BP diastolic 49–89; PULSE 72–95; RESP 14–18; TEMP 36.1–37; O2SAT 86–97; BMI 23.7
[2024-07-01] MEDS: Phenobarbital 32.4 MG Tablet 97.2 MG PO ×3 (00:45→10:40)
[2024-07-01 01:52] LABS: Troponin T High Sens 4 HR 97 ng/L (<=22)
[2024-07-01 05:04] LABS: Absolute Lymphocyte Count 0.93 X10^3/uL (0.83-4.51); Absolute Neutrophil Count 3.3 X10^3/uL (2.0-7.7); Basophil# 0.04 X10^3/uL; Basophil% 0.8 % (0-1); Eosinophil# 0.05 X10^3/uL; Hematocrit 24.4 % (40-54); Lymphocyte # 0.93 X10^3/ul (0.83-4.51); Lymphocyte % 19.3 % (19-41); Mean Corp Hgb Conc 32.8 g/dL (32-36); Mean Corpuscular Hgb 35.9 pg (27.0-32.0); Mean Corpuscular Volume 109.4 fL (80-94); Mean Platelet Vol. 11.4 fl (6.2-12.0); Monocyte# 0.47 X10^3/uL; Monocyte% 9.8 % (0-10); NRBC Flagged by Analyzer 0 % (0-5); Neutrophil # 3.32 X10^3/uL (2.7-7.7); Neutrophil % 68.9 % (47-70); POSITIVE MORPHOLOGY YES; Platelet Count 110 K/mm3 (150-450); RBC Distribution Width CV 16.4 % (11.6-14.6); RBC Distribution Width SD 65.7 fl (35.1-43.9); Red Blood Count 2.23 M/mm3 (4.6-6.2); White Blood Count 4.8 K/mm3 (4.4-11.0)
[2024-07-01 05:22] LABS: Differential Indicated SCAN CRITERIA MET
[2024-07-01 05:45] LABS: ALB/GLOB Ratio 1.3 RATIO (0.9-2.4); AST(SGOT) 43 U/L (<=37); Alanine Aminotransfer ALT/SGPT 25 U/L (<=46); Albumin, Serum 2.4 g/dL (3.4-4.8); Alkaline Phosphatase 87 U/L (40-129); Anisocytosis 1+; BUN 10 mg/dL (4-19); Calcium,Total 7.7 mg/dL (7.6-11.0); Carbon Dioxide 25.9 mmol/L (21.0-32.0); Chloride 103 mmol/L (98-108); Creatinine, Serum 1.28 mg/dL (0.70-1.20); Differential Comment SCANNED; EST Glomerular Filtration Rate 64 (>60); Estimated Creatinine Clearance 64.55 ml/min (50-250); Globulin 1.9 g/dL (2.2-4.2); Glucose 256 mg/dL (70-99); Macrocytosis 1+; Phosphorus 3.1 mg/dL (2.7-4.5); Potassium 4.2 mmol/L (3.3-5.1); Protein, Total 4.4 g/dL (5.9-8.4); Sodium Level 136 mmol/L (133-145); Total Bilirubin 0.36 mg/dL (0.00-1.30)
[2024-07-01 05:46] LABS: Anion Gap 7 (5-15)
[2024-07-01] MEDS: Insulin Lispro 100 UNIT/ML INSULN.PEN SC ×3 (06:07→22:13)
[2024-07-01] MEDS: hydrALAZINE 25 MG Tablet PO (06:08)
[2024-07-01 06:39] LABS: Bedside Glucose 238 mg/dL (74-106)
--- NOTE | 2024-07-01 07:49 | PCM.PN.HOSP ---
Reason for Visit Reason for Visit: Abdominal pain Subjective Subjective Patient states he still having intermittent abdominal pain. We were able to do a paracentesis today for removal of 1700 cc. Patient states he was not sure why he did not take his Lasix and Aldactone when he got home. He states he thinks he needs his cousin to help him set up his medications when he goes home this time. We did discuss the importance of compliance with medications to avoid recurrent hospitalizations. Objective Data Objective Data Vital Signs: Vital Signs Temp Pulse Resp BP Pulse Ox O2 Del Method O2 Flow Rate 97.0 F L 72 18 116/84 H 95 Nasal Cannula 2 07/01/24 03:06 07/01/24 06:08 07/01/24 03:06 07/01/24 06:08 07/01/24 03:06 07/01/24 03:06 07/01/24 03:06 Oxygen Flow Rate (L/min) 2 Oxygen Delivery Method Nasal Cannula Weight: 77.2 kg Body Mass Index (BMI) 23.7 Intake & Output: Intake and Output for Last 24 Hours 06/29/24 06/30/24 07/01/24 23:59 23:59 23:59 Intake Total 100 / 100 Output Total 400 / 400 450 / 450 Balance -300 / -300 -450 / -450 Lab / Micro Data 07/01/24 04:55 07/01/24 04:55 Labs: Laboratory Results - last 24 hr 06/30/24 15:58: WBC 7.0, RBC 2.82 L, Hgb 10.2 L, Hct 31.1 L, MCV 110.3 H, MCH 36.2 H, MCHC 32.8, RDW Std Deviation 66.4 H, RDW Coeff of Kalpana 16.2 H, Plt Count 158, MPV 11.7, Immature Gran % (Auto) 0.300, Neut % (Auto) 75.0 H, Lymph % (Auto) 14.4 L, [place] % (Auto) 9.1, Eos % (Auto) 0.3, Baso % (Auto) 0.9, Absolute Neuts (auto) 5.3, Absolute Lymphs (auto) 1.01, Nucleated RBC % 0, Polychromasia 2+, Anisocytosis 2+, PT 15.9 H, INR 1.2, APTT 29.0, Sodium 135, Potassium 4.2, Chloride 101, Carbon Dioxide 24.7, Anion Gap 9, BUN 11, Creatinine 1.41 H, Estim Creat Clear Calc 58.60, Est GFR (MDRD) Non-Af 57 L, BUN/Creatinine Ratio 7.7 L, Glucose 159 H, Lactic Acid 1.4, Calcium 8.2, Magnesium 1.6, Total Bilirubin 0.45, Direct Bilirubin 0.27, AST 55 H, ALT 34, Alkaline Phosphatase 117, [place] [address] H, Total Protein 5.1 L, Albumin 2.5 L, Globulin 2.6, Lipase 6 L, Ethyl Alcohol < 10.1 06/30/24 16:50: Urine Color Yellow, Urine Clarity Sl. Cloudy, Urine pH 6.0, Ur Specific [employer] 1.020, Urine Protein 30 H, Urine Glucose (UA) Normal, Urine Ketones 5 H, Urine Occult Blood Negative, Urine Nitrite Negative, Urine Bilirubin 1 H, Urine Urobilinogen Normal, Ur Leukocyte Esterase 25 H, Urine RBC 0-5 SEEN, Urine WBC 0-5 SEEN, Ur Squamous Epith Cells 0-5 SEEN, Urine Bacteria 0 SEEN, Urine Mucus 0 SEEN 06/30/24 21:00: Troponin T High Sens 93 H* 06/30/24 21:34: POC Glucose 123 H 06/30/24 22:54: Troponin T Hi Sens 2 Hr 98 H* 07/01/24 01:00: Troponin T Hi Sens 4Hr 97 H* 07/01/24 04:55: WBC 4.8, RBC 2.23 L, Hgb 8.0 L, Hct 24.4 L, MCV 109.4 H, MCH 35.9 H, MCHC 32.8, RDW Std Deviation 65.7 H, RDW Coeff of Kalp[place] 16.4 H, Plt Count 110 L, MPV 11.4, Immature Gran % (Auto) 0.200, Neut % (Auto) 68.9, Lymph % (Auto) 19.3, [place] % (Auto) 9.8, Eos % (Auto) 1.0, Baso % (Auto) 0.8, Absolute Neuts (auto) 3.3, Absolute Lymphs (auto) 0.93, Nucleated RBC % 0, Differential Comment SCANNED, Anisocytosis 1+, Macrocytosis 1+, Sodium 136, Potassium 4.2, Chloride 103, Carbon Dioxide 25.9, Anion Gap 7, BUN 10, Creatinine 1.28 H, Estim Creat Clear Calc 64.55, Est GFR (MDRD) Non-Af 64, BUN/Creatinine Ratio 8.0 L, Glucose 256 H, Calcium 7.7, Phosphorus 3.1, Total Bilirubin 0.36, AST 43 H, ALT 25, Alkaline Phosphatase 87, Total Protein 4.4 L, Albumin 2.4 L, Globulin 1.9 L, Albumin/Globulin Ratio 1.3 07/01/24 06:01: POC Glucose 238 H ABG Data ABG results: ABG 06/30/24 20:05 Specimen Type ROSA Sample Site Not entered VBG pH 7.34 VBG pO2 24 L VBG HCO3 28 H VBG Total CO2 29 VBG O2 Sat (Calc) 37 L VBG Base Excess 2 POC Mix VBG pCO2 Pt Tmp 51.8 H O2 Delivery Device Room Air Radiography Diagnostic Testing: Radiology Impression Abdomen/Pelvis CT 06/30/24 15:59 IMPRESSION: 1. Persistent bowel wall thickening of the cecum, with slight interval decrease in wall thickening involving the remainder of the small and large bowel compared to CT on 06/25/2024. Findings may again be related to fluid overload, though colitis could appear similar. 2. Moderate to large volume of ascites, unchanged. 3. Moderate bilateral pleural effusions are increased from 06/25/2024. 4. Hypodensity of the right and caudate lobes of the liver, which could be the result of geographic hepatic steatosis or perfusion abnormality. Portal vein appears patent. 5. Sequela of chronic pancreatitis. Reading Location: [facility] Chest X-Ray 06/30/24 17:05 IMPRESSION: 1. Moderate bilateral pleural effusions. 2. Linear opacity at the left mid lung zone may represent extension of pleural fluid, atelectasis, or infection. 3. Nodular opacities at the right perihilar region, possibly calcified lymph nodes. Consider CT Chest if patient has risk factors for malignancy. 4. Cardiomegaly. Reading Location: [facility] Physical Exam Const alert, oriented x3, no apparent distress and average body habitus; Negative for healthy appearing Constitutional Narrative: Middle-aged, white male, lying in bed, appears older than stated age, lying in bed with nursing at bedside, does not appear uncomfortable, not toxic HEENT head/scalp atraumatic and moist oral mucous membranes HEENT Narrative: Mallampati is 2-3, no thrush Head and Scalp: normocephalic Resp normal respiratory effort, no retractions, no use of accessory muscles and clear to auscultation bilaterally Resp Narrative: Diffusely diminished with more diminished at bases bilaterally Auscultation: Negative for rales, rhonchi or wheezes Cardio regular rate, regular rhythm, S1 normal heart sound, no rub, no gallops and no clicks; Negative for S2 normal heart sound or no murmurs Cardio Narrative: 3 out of 6 systolic murmur, loudest at right upper sternal border, S2 is soft, radiates to bilateral carotids GI normal to inspection, nondistended, normoactive bowel sounds and soft to palpation GI Narrative: Positive fluid wave, mild distention, diffuse mild tenderness with no point tenderness Extremity Extremity Narrative: Trace to 1+ bilateral lower extremity pitting edema, no cyanosis or clubbing Neuro oriented x3, moves all extremities and no focal motor deficits Neuro Narrative: No asterixis Speech: speech normal Psych affect normal Psych Narrative: Pleasant, interacts appropriately Assessment & Plan Assessment/Plan (1) Elevated troponin: (2) Medically noncompliant: (3) Pleural effusion: (4) Hypoxia: (5) Volume overload: QUALIFIERS: Hypervolemia type: other Qualified Code(s): E87.79 - Other fluid overload PLAN: Plan Acute hypoxia secondary to bilateral pleural effusions - Etiology is unclear - BNP is elevated however patient also has liver disease - Check echocardiogram - Paracentesis as ordered - No thoracentesis for now - IV Lasix 40 push twice daily - Wean oxygen as able - Was 87% on room air in the emergency department - I-S and Acapella -Patient was noncompliant with diuretic therapy at discharge Elevated troponin - No chest pain - Echocardiogram is pending - Highly suspect this is demand ischemia related to his hypoxia Chronic abdominal pain - Like related to chronic alcoholic pancreatitis - Continue Creon - Fecal elastase, IBD, SGI, are pending as ordered at last hospitalization by GI - Stool studies were negative for infectious etiology at her his last hospitalization Decompensated alcoholic liver cirrhosis/hepatomegaly - Potentially has some functioning liver - no marked cirrhosis type morphology noted on imaging - No significant splenomegaly - Lasix IV push twice daily 40 mg - Continue Aldactone but increase to 25 mg p.o. twice daily - Paracentesis performed today by me with 1700 cc of fluid removed - Will consult gastroenterology tomorrow Chronic macrocytic anemia - Baseline seems to be between 8 and 10 - Repeat CBC in a.m. - EGD performed on 06/27/2024 and showed a normal esophagus with type I isolated gastric varices without bleeding, portal hypertensive gastropathy that was biopsied and no gross lesions in the entire duodenum - No signs of blood loss Thrombocytopenia - Appears to be chronic and stable - Highly suspect related to liver disease but could be bone marrow suppression from alcohol use - Per discussion patient is not currently using significant abe of alcohol - Repeat lab in a.m. CKD stage II - Serum creatinine is close to baseline - Continue diuretic therapy and monitor closely DM-2 - Continue basal insulin 10 units daily - Restart home Farxiga - Continue SSI - Hold oral agents other than Farxiga - Carb controlled diet - Accu-Cheks as ordered CAD/essential hypertension/hyperlipidemia - Continue home hydralazine - Continue home metoprolol - Continue home Aldactone - Continue home Lasix - As needed hydralazine to continue - Continue atorvastatin - Check echocardiogram Diabetic neuropathy -Continue home gabapentin GERD -Continue home Protonix History of alcohol abuse -patient without any current significant alcohol use - continue p.o. thiamine and folate History of aortic valve replacement - Bioprosthetic valve in 2017 with mechanical valve prior to that - Patient with cardiac murmur - Check echocardiogram History of sick sinus syndrome - Continue home metoprolol - Previous pacemaker History of AAA/thoracic aortic aneurysm - Had thoracic dissection and was treated at [facility] History of heroin abuse - Remote - patient states he has been clean for approximately 10 years Tobacco abuse - Encouraged cessation - nicotine patch replacement available DVT prophylaxis -Platelet count remains greater than 70,000 -Start enoxaparin 40 daily CODE STATUS - Full code Charges/Coding Visit Charges Inpatient E&M: 19972 Subs Hosp L2
[2024-07-01] MEDS: Thiamine Hydrochloride 100 MG Tablet PO (10:41)
[2024-07-01] MEDS: Creon 24,000 unit DR Capsule 1 CAP PO ×3 (10:41→17:11)
[2024-07-01] MEDS: Folic Acid 1 MG Tablet PO (10:42)
[2024-07-01] MEDS: Ciprofloxacin 0.3% 2.5ml Bottle 1 DRP RIGHT EYE ×2 (10:44→22:13)
[2024-07-01] MEDS: Insulin Glargine-YFGN 100 UNIT/ML Pen SC (12:11)
[2024-07-01 12:38] LABS: Bedside Glucose 114 mg/dL (74-106)
--- NOTE | 2024-07-01 12:44 | ECHOD_ITS ---
Reason For Study Reason For Study: CHF Procedure This was a 2D Doppler, Color Flow transthoracic echocardiogram. Exam performed portable in patient room. Left Ventricle Normal LV size. The estimated ejection fraction is 35-40 %. Aortic Valve Aortic valve area 1.1 . Moderate to severe aortic stenosis. Peak aortic valve gradient 60.2 mmHg. Mean aortic valve gradient 40.2 mmHg. Pulmonic Valve The pulmonic valve is not well visualized. Great Vessels The aortic root is not well visualized. Pericardium/Pleural No pericardial effusion. MMode/2D Measurements & Calculations LVIDd: 4.3 cm IVSd: 1.5 cm LVOT diam: 2.0 cm LVIDs: 3.6 cm LVPWd: 1.3 cm RVDd: 2.7 cm FS: 16.4 % LVOT area: 3.0 cm2 Ao root diam: 3.7 cm LAV(MOD-bp): 44.9 ml LVAd ap4: 24.6 cm2 LAV(MOD-bp) Indexed: 22.9 ml/m2 LVLd ap4: 8.3 cm LAV(MOD-sp2): 57.9 ml EDV(MOD-sp4): 61.4 ml LAV(MOD-sp4): 33.9 ml EDV(sp4-el): 61.6 ml LVAs ap4: 18.1 cm2 LVLs ap4: 7.0 cm ESV(MOD-sp4): 39.3 ml ESV(sp4-el): 39.9 ml EF(MOD-sp4): 36.0 % EF(sp4-el): 35.2 % SV(MOD-sp4): 22.1 ml SV(sp4-el): 21.7 ml LA A4 area: 15.0 cm2 SI(MOD-sp4): 11.3 ml/m2 LA dimension(2D): 4.3 cm TAPSE: 1.3 cm RA A4 area: 11.7 cm2 Time Measurements MV dec time: 0.20 sec Doppler Measurements & Calculations MV E max natan: 54.4 cm/sec Lat Peak E' Natan: 4.8 cm/sec Med Peak E' Natan: 4.1 cm/sec MV A max natan: 77.6 cm/sec E/E' lat: 11.3 E/E' med: 13.3 MV E/A: 0.70 MV dec slope: 275.3 cm/sec2 Ao V2 max: 387.4 cm/sec LV V1 max: 145.0 cm/sec Ao max P.2 mmHg LV V1 max P.4 mmHg Ao V2 mean: 306.6 cm/sec LV V1 mean P.9 mmHg Ao mean P.2 mmHg LV V1 mean: 118.1 cm/sec Ao V2 VTI: 77.7 cm LV V1 VTI: 29.1 cm AV (velocity ratio): 0.37 SAY(I,D): 1.1 cm2 SAY(V,D): 1.1 cm2 SV(LVOT): 88.5 ml PA V2 max: 90.6 cm/sec TR max natan: 197.8 cm/sec TR max P.6 mmHg ECHO/Echo Complete Interpretation Summary The estimated ejection fraction is 35-40 %. Moderate LV systolic dysfunction wi th global LV hypokinesia. 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 Mean aortic valve gradient 40.2 mmHg. Pacemaker lead seen in the right ventricle Trivial MR Transmitral Doppler flow revealed impaired relaxation of LV. Ordering Physician: Melonie De La Rosa Referring Physician: Marianna Shine Performed By: Maria L Burleson, MARIBEL, RVT
--- NOTE | 2024-07-01 13:34 | CASEMGMT ---
Readmission note: Index: 06/25/24-06/28/24. Dx: Critical Hypokalemia, Lactic Acidosis Current: 06/30/24. Dx: Pleural Effusions, Hypoxia, ABD Pain and Distention From the index admission, the pt was discharged home with his father with OP therapy through . The pt was sent home with a BGM Rx and 2 new medication prescriptions. Pt also has a history of ETOH and tobacco abuse. SW provided the pt with resources during the index admission. The pt re-presents to [facility] with SOB, Abdominal pain, and abdominal distention. ELIS CM to pt room at this time. Pt is A&Ox4 and is resting in bed. Pt states that [facility] never called him with an appt time. Pt states that he did not get his BGM rx filled. Pt states that he did not drink at home but states that he continued smoking cigarettes. Pt states that he was able to get his 2 new prescriptions but states that he is unsure if he took all of his medications as ordered. Moving forward, the pt requires a paracentesis (per Dr. De La Rosa). PT is recommending HH at this time. However, HH could not be set up during the initial admission as the in-network HHC agencies declined the pt. Pt reports that he plans to return home at the time of DC with his father and OP therapy through . Pt states that his uncle can drive him home at the time of DC. Pt denies further concerns at this time and states that he wants to sleep as he does not feel good currently. CM to follow. Ivan JAVIER RN, CM
[2024-07-01] MEDS: CARBOXYMETHYLCELLULOSE SODIUM 15 ML OPHTH DROPS 2 DRP EACH EYE (13:42)
--- NOTE | 2024-07-01 13:45 | OP.PCM_ITS ---
Procedures Hospitalists Procedures: Other Procedure - See Report (Paracentesis) Operative Report (Standard) Operative Information Date of Procedure: 07/01/24 Pre-Operative Diagnosis: Ascites Post-Operative Diagnosis: Ascites Surgery/Procedure Performed: Paracentesis software quality assurance analyst: No Type of Anesthesia: Local Procedure Start Time: 13:18 Procedure Stop Time: 13:40 Select all DRAINS/GRAFTS/IMPLANTS that apply: None Estimated Blood Loss: 0 Specimen collected: No Description of surgery: The procedure as well as the benefits and possible complications including infection were explained to the patient. Informed consent was obtained. Timeout was performed. The overlying skin was prepped with chlorhexidine and draped in the usual sterile fashion. Following local anesthetic application, a 5 Romansh catheter was placed into the abdomen. 1700 mL of light colored fluid was aspirated. Surgical Findings: 1700 cc of light-colored fluid Complications Complications: No
[2024-07-01] MEDS: Lactobacillis Acidophilus 2 CAP PO ×2 (14:00→22:14)
[2024-07-01] MEDS: Pantoprazole Sodium 40 MG Tablet PO ×2 (14:01→22:14)
[2024-07-01] MEDS: Furosemide 100 MG/10 ML Vial 60 MG IV (14:01)
[2024-07-01] MEDS: Ferrous Sulfate 325 MG Tablet PO (14:01)
[2024-07-01] MEDS: Atorvastatin Calcium 10 MG Tablet PO (14:01)
[2024-07-01] MEDS: Ramipril 10 MG Capsule PO (14:01)
[2024-07-01] MEDS: Multivitamins,Therapeutic Tablet 1 TABLET PO (14:01)
[2024-07-01] MEDS: 0.9% Saline Lock 10 ML Syringe IV (14:02)
[2024-07-01 17:29] LABS: Bedside Glucose 237 mg/dL (74-106)
[2024-07-01] MEDS: Insulin Glargine-YFGN 100 UNIT/ML Pen 10 UNIT SC (22:14)
[2024-07-01] MEDS: Spironolactone 25 MG Tablet PO (22:32)
[2024-07-01 22:47] LABS: Bedside Glucose 158 mg/dL (74-106)
[2024-07-02] VITALS (7 sets, daily range): BP systolic 96–114; BP diastolic 65–82; PULSE 69–93; RESP 15–18; TEMP 36.1–37.6; O2SAT 90–96; BMI 22.4
[2024-07-02 04:12] LABS: Hematocrit 22.5 % (40-54); Hemoglobin 7.5 g/dL (13.0-16.5); Mean Corp Hgb Conc 33.3 g/dL (32-36); Mean Corpuscular Hgb 36.4 pg (27.0-32.0); Mean Corpuscular Volume 109.2 fL (80-94); Mean Platelet Vol. 12.5 fl (6.2-12.0); POSITIVE MORPHOLOGY YES; Platelet Count 132 K/mm3 (150-450); RBC Distribution Width CV 16.7 % (11.6-14.6); RBC Distribution Width SD 67.2 fl (35.1-43.9); Red Blood Count 2.06 M/mm3 (4.6-6.2)
[2024-07-02 04:25] LABS: Scan Indicated on CBC? Y/N YES- FLAGS NOTED
[2024-07-02 06:26] LABS: ALB/GLOB Ratio 1.2 RATIO (0.9-2.4); AST(SGOT) 54 U/L (<=37); Alanine Aminotransfer ALT/SGPT 26 U/L (<=46); Albumin, Serum 2.3 g/dL (3.4-4.8); Alkaline Phosphatase 101 U/L (40-129); Anion Gap 7 (5-15); BUN 11 mg/dL (4-19); BUN/Creat Ratio 8.9 RATIO (10-20); Calcium,Total 7.7 mg/dL (7.6-11.0); Carbon Dioxide 26.7 mmol/L (21.0-32.0); Chloride 108 mmol/L (98-108); Creatinine, Serum 1.22 mg/dL (0.70-1.20); EST Glomerular Filtration Rate 67 (>60); Estimated Creatinine Clearance 65.56 ml/min (50-250); Glucose 57 mg/dL (70-99); Magnesium 1.8 mg/dL (1.5-2.2); Phosphorus 2.4 mg/dL (2.7-4.5); Potassium 4.1 mmol/L (3.3-5.1); Protein, Total 4.3 g/dL (5.9-8.4); Sodium Level 141 mmol/L (133-145); Total Bilirubin 0.29 mg/dL (0.00-1.30)
[2024-07-02 06:46] LABS: Bedside Glucose 116 mg/dL (74-106)
[2024-07-02 06:48] LABS: Bedside Glucose 66 mg/dL (74-106)
--- NOTE | 2024-07-02 07:12 | PCM.PN.HOSP ---
Reason for Visit Reason for Visit: Abdominal pain Subjective Subjective Patient reports that he still having some cramping in his lower abdomen. CAT scan was unremarkable. Will add some Bentyl to see if this does help him. He states he is having bowel movements again. States his breathing seems to be okay. Encouraged bed. Blood pressure was soft overnight. Will hold home antihypertensives and start midodrine and attempt to be aggressive with his diuresis. Objective Data Objective Data Vital Signs: Vital Signs Temp Pulse Resp BP Pulse Ox O2 Del Method O2 Flow Rate 97.0 F L 78 16 99/73 96 Nasal Cannula 2 07/02/24 03:56 07/02/24 03:56 07/02/24 03:56 07/02/24 03:56 07/02/24 03:56 07/02/24 03:56 07/02/24 03:56 Oxygen Flow Rate (L/min) 2 Oxygen Delivery Method Nasal Cannula Weight: 72.9 kg Body Mass Index (BMI) 22.4 Intake & Output: Intake and Output for Last 24 Hours 06/30/24 07/01/24 07/02/24 23:59 23:59 23:59 Intake Total 100 / 100 540 / 540 Output Total 400 / 400 975 / 975 Balance -300 / -300 -435 / -435 Lab / Micro Data 07/02/24 03:55 07/02/24 05:50 Labs: Laboratory Results - last 24 hr 07/01/24 12:07: POC Glucose 114 H 07/01/24 17:08: POC Glucose 237 H 07/01/24 22:09: POC Glucose 158 H 07/02/24 03:55: WBC 4.0 L, RBC 2.06 L, Hgb 7.5 L, Hct 22.5 L, MCV 109.2 H, MCH 36.4 H, MCHC 33.3, RDW Std Deviation 67.2 H, RDW Coeff of Kalp[place] 16.7 H, Plt Count 132 L, MPV 12.5 H, Differential Comment , Sodium Cancelled, Potassium Cancelled, Chloride Cancelled, Carbon Dioxide Cancelled, Anion Gap Cancelled, BUN Cancelled, Creatinine Cancelled, Estim Creat Clear Calc Cancelled, Est GFR (MDRD) Non-Af Cancelled, BUN/Creatinine Ratio Cancelled, Glucose Cancelled, Calcium Cancelled, Phosphorus Cancelled, Magnesium Cancelled, Total Bilirubin Cancelled, AST Cancelled, ALT Cancelled, Alkaline Phosphatase Cancelled, Total Protein Cancelled, Albumin Cancelled, Globulin Cancelled, Albumin/Globulin Ratio Cancelled 07/02/24 05:50: Sodium 141, Potassium 4.1, Chloride 108, Carbon Dioxide 26.7, Anion Gap 7, BUN 11, Creatinine 1.22 H, Estim Creat Clear Calc 65.56, Est GFR (MDRD) Non-Af 67, BUN/Creatinine Ratio 8.9 L, Glucose 57 L, Calcium 7.7, Phosphorus 2.4 L, Magnesium 1.8, Total Bilirubin 0.29, AST 54 H, ALT 26, Alkaline Phosphatase 101, Total Protein 4.3 L, Albumin 2.3 L, Globulin 2.0 L, Albumin/Globulin Ratio 1.2 07/02/24 05:51: POC Glucose 66 L 07/02/24 06:28: POC Glucose 116 H Physical Exam Const alert, oriented x3, no apparent distress and average body habitus; Negative for healthy appearing Constitutional Narrative: Middle-aged, white male, lying in bed in left side-lying, awake, interacts appropriately, states he has to go to the bathroom, somewhat impulsive, does not appear toxic General Appearance: cooperative HEENT normocephalic, head/scalp atraumatic and moist oral mucous membranes Resp normal respiratory effort, no retractions, no use of accessory muscles and clear to auscultation bilaterally Resp Narrative: Diffusely diminished with more diminished at bases bilaterally Auscultation: Negative for rales, rhonchi or wheezes Cardio regular rate, regular rhythm, S1 normal heart sound, no rub, no gallops and no clicks; Negative for S2 normal heart sound or no murmurs Cardio Narrative: 3 out of 6 systolic murmur, loudest at right upper sternal border, S2 is soft, radiates to bilateral carotids GI normal to inspection, nondistended, normoactive bowel sounds and soft to palpation GI Narrative: Fluid wave is resolved status post paracentesis, mild tenderness in the lower abdomen, scattered ecchymosis on the abdomen from injections and from what appears to be an abrasion across the anterior lower abdomen Extremity Extremity Narrative: Trace bilateral lower extremity pitting edema, no cyanosis or clubbing Neuro oriented x3, moves all extremities and no focal motor deficits Speech: speech normal Psych affect normal Psych Narrative: Pleasant, interacts appropriately, patient is somewhat impulsive Assessment & Plan Assessment/Plan (1) Elevated troponin: (2) Medically noncompliant: (3) Pleural effusion: (4) Hypoxia: (5) Volume overload: QUALIFIERS: Hypervolemia type: other Qualified Code(s): E87.79 - Other fluid overload PLAN: Plan Acute hypoxia secondary to bilateral pleural effusions - Etiology is unclear liver versus cardiac - BNP is elevated however patient also has liver disease - Echocardiogram is ordered and pending - Paracentesis completed - No thoracentesis for now as I think this is translocation from the abdominal cavity up into the chest cavity - IV Lasix 40 push twice daily - Wean oxygen as able - Was 87% on room air in the emergency department - I-S and Acapella -Patient was noncompliant with diuretic therapy at discharge Relative hypotension -blood pressures have been soft - Hold home antihypertensives - Start midodrine 10 mg 3 times daily - Would like to continue diuresis given volume overload on presentation Hypophosphatemia - Mild -will give 15 mmol replacement of K-Phos - Repeat a.m. lab Elevated troponin - No chest pain - Echocardiogram was ordered yesterday and hopeful it will be done in the next 24 to 48 hours due to holiday weekend and there seems to be delay - Highly suspect this is demand ischemia related to his hypoxia Chronic abdominal pain - Like related to chronic alcoholic pancreatitis but patient also is complaining of lower abdominal cramping -CT is unrevealing for any significant intra-abdominal issues - Continue Creon - Add scheduled Bentyl - Fecal elastase, IBD, SGI, are pending as ordered at last hospitalization by GI - Stool studies were negative for infectious etiology at her his last hospitalization Decompensated alcoholic liver cirrhosis/hepatomegaly - Potentially has some functioning liver - no marked cirrhosis type morphology noted on imaging - No significant splenomegaly - Lasix IV push twice daily 40 mg - Aldactone on hold due to blood pressure issues - Paracentesis performed on 07/01/2024 with 1700 cc of fluid removed--> fluid studies were not sent as he recently had this done - GI consult placed Chronic macrocytic anemia - Baseline seems to be between 8 and 10 -Hemoglobin has dropped some but no signs of acute bleeding--> patient remains volume overloaded - Repeat CBC in a.m. as I hope we would be able to diurese on fluid today and that should make a difference in his hemoglobin - EGD performed on 06/27/2024 and showed a normal esophagus with type I isolated gastric varices without bleeding, portal hypertensive gastropathy that was biopsied and no gross lesions in the entire duodenum - No signs of blood loss Thrombocytopenia - Appears to be chronic and stable - Highly suspect related to liver disease but could be bone marrow suppression from alcohol use - Per discussion patient is not currently using significant abe of alcohol - Repeat lab in a.m. CKD stage II -Serum creatinine stable at 1.22 - Monitor closely with ongoing diuresis DM-2 - Continue basal insulin 10 units daily--> blood sugar this morning was slightly on the low side but yesterday was high will continue this and continue to monitor closely - Continue home Farxiga - Continue SSI - Hold oral agents other than Farxiga - Carb controlled diet - Accu-Cheks as ordered CAD/essential hypertension/hyperlipidemia -Hold home hydralazine -Continue home metoprolol but with parameters -Hold home Aldactone -Hold home Lasix - As needed hydralazine to continue - Continue atorvastatin -Echocardiogram is pending Diabetic neuropathy -Continue home gabapentin monitor for need of renally dosing GERD -Continue home Protonix History of alcohol abuse -patient without any current significant alcohol use - continue p.o. thiamine and folate History of aortic valve replacement - Bioprosthetic valve in 2017 with mechanical valve prior to that - Patient with cardiac murmur -Echo is pending History of sick sinus syndrome - Continue home metoprolol - Previous pacemaker History of AAA/thoracic aortic aneurysm - Had thoracic dissection and was treated at [facility] History of heroin abuse - Remote - patient states he has been clean for approximately 10 years Tobacco abuse - Encouraged cessation - nicotine patch replacement available DVT prophylaxis -Platelet count remains greater than 70,000 -Start enoxaparin 40 daily CODE STATUS - Full code Charges/Coding Visit Charges Inpatient E&M: 36746 Subs Hosp L2
[2024-07-02] MEDS: Multivitamins,Therapeutic Tablet 1 TABLET PO (08:58)
[2024-07-02] MEDS: Creon 24,000 unit DR Capsule 1 CAP PO ×3 (08:58→17:41)
[2024-07-02] MEDS: Lactobacillis Acidophilus 2 CAP PO ×2 (08:59→20:44)
[2024-07-02] MEDS: Pantoprazole Sodium 40 MG Tablet PO ×2 (09:00→20:44)
[2024-07-02] MEDS: Atorvastatin Calcium 10 MG Tablet PO (09:00)
[2024-07-02] MEDS: Thiamine Hydrochloride 100 MG Tablet PO (09:00)
[2024-07-02] MEDS: Folic Acid 1 MG Tablet PO (09:00)
[2024-07-02] MEDS: Enoxaparin 40 MG/0.4 ML Syringe SC (09:15)
[2024-07-02] MEDS: Gabapentin 300 MG Capsule PO (09:15)
[2024-07-02] MEDS: traMADol 50 MG Tablet PO ×2 (09:15→17:53)
[2024-07-02] MEDS: Furosemide 40 MG/4 ML Vial IV ×2 (09:16→17:41)
[2024-07-02] MEDS: Empagliflozin 25 MG Tablet PO (09:17)
[2024-07-02] MEDS: Ciprofloxacin 0.3% 2.5ml Bottle 1 DRP RIGHT EYE ×2 (09:17→20:44)
[2024-07-02] MEDS: Midodrine HCl 5 MG Tablet 10 MG PO ×3 (09:17→17:49)
[2024-07-02] MEDS: 0.9% Saline Lock 10 ML Syringe IV ×3 (09:20→20:56)
[2024-07-02 12:08] LABS: Bedside Glucose 107 mg/dL (74-106)
[2024-07-02] MEDS: Ferrous Sulfate 325 MG Tablet PO (12:17)
[2024-07-02] MEDS: Sodium Phosphate/Na Biphos 15 MMOL in 0.9% Normal Saline (250mL Bag) 250 ML 125 MMOL IV (13:13)
[2024-07-02 17:04] LABS: Bedside Glucose 174 mg/dL (74-106)
[2024-07-02] MEDS: Dicyclomine 10 MG Capsule PO ×2 (17:41→20:44)
[2024-07-02] MEDS: CARBOXYMETHYLCELLULOSE SODIUM 15 ML OPHTH DROPS 2 DRP EACH EYE (17:50)
[2024-07-02] MEDS: Insulin Lispro 100 UNIT/ML INSULN.PEN SC ×2 (17:56→20:45)
[2024-07-02] MEDS: Insulin Glargine-YFGN 100 UNIT/ML Pen 10 UNIT SC (20:45)
[2024-07-02] MEDS: MELATONIN 3 MG TABLET PO (20:55)
[2024-07-02 21:28] LABS: Bedside Glucose 218 mg/dL (74-106)
[2024-07-03] VITALS (9 sets, daily range): BP systolic 93–102; BP diastolic 63–72; PULSE 60–77; RESP 14–18; TEMP 36.6–37; O2SAT 91–96; BMI 21.9
[2024-07-03] MEDS: Ondansetron 8 MG Tablet PO (03:35)
[2024-07-03] MEDS: Dicyclomine 10 MG Capsule PO ×4 (05:16→21:30)
[2024-07-03] MEDS: 0.9% Saline Lock 10 ML Syringe IV ×4 (05:16→21:30)
[2024-07-03 05:30] LABS: Hematocrit 24.2 % (40-54); Mean Corp Hgb Conc 33.1 g/dL (32-36); Mean Corpuscular Hgb 35.9 pg (27.0-32.0); Mean Corpuscular Volume 108.5 fL (80-94); Mean Platelet Vol. 10.8 fl (6.2-12.0); POSITIVE MORPHOLOGY YES; Platelet Count 107 K/mm3 (150-450); RBC Distribution Width CV 16.9 % (11.6-14.6); RBC Distribution Width SD 66.8 fl (35.1-43.9); Red Blood Count 2.23 M/mm3 (4.6-6.2); White Blood Count 4.3 K/mm3 (4.4-11.0)
[2024-07-03 05:46] LABS: Anion Gap 6 (5-15); BUN 15 mg/dL (4-19); BUN/Creat Ratio 13.1 RATIO (10-20); Calcium,Total 7.4 mg/dL (7.6-11.0); Chloride 103 mmol/L (98-108); Creatinine, Serum 1.15 mg/dL (0.70-1.20); EST Glomerular Filtration Rate 72 (>60); Estimated Creatinine Clearance 68.03 ml/min (50-250); Glucose 54 mg/dL (70-99); Magnesium 1.8 mg/dL (1.5-2.2); Phosphorus 3.2 mg/dL (2.7-4.5); Sodium Level 137 mmol/L (133-145)
[2024-07-03 06:59] LABS: Scan Indicated on CBC? Y/N YES- FLAGS NOTED
[2024-07-03 07:12] LABS: Bedside Glucose 128 mg/dL (74-106)
[2024-07-03] MEDS: traMADol 50 MG Tablet PO ×2 (08:40→16:10)
[2024-07-03] MEDS: Pantoprazole Sodium 40 MG Tablet PO ×2 (08:41→21:30)
[2024-07-03] MEDS: Thiamine Hydrochloride 100 MG Tablet PO (08:41)
[2024-07-03] MEDS: Lactobacillis Acidophilus 2 CAP PO ×2 (08:42→21:30)
[2024-07-03] MEDS: Creon 24,000 unit DR Capsule 1 CAP PO ×3 (08:42→15:58)
[2024-07-03] MEDS: Folic Acid 1 MG Tablet PO (08:43)
[2024-07-03] MEDS: Midodrine HCl 5 MG Tablet 10 MG PO ×3 (08:43→18:12)
[2024-07-03] MEDS: Ciprofloxacin 0.3% 2.5ml Bottle 1 DRP RIGHT EYE ×2 (08:43→21:32)
[2024-07-03] MEDS: Multivitamins,Therapeutic Tablet 1 TABLET PO (08:44)
[2024-07-03] MEDS: Atorvastatin Calcium 10 MG Tablet PO (08:44)
[2024-07-03] MEDS: Empagliflozin 25 MG Tablet PO (08:47)
[2024-07-03] MEDS: Furosemide 40 MG/4 ML Vial IV ×2 (08:47→18:12)
[2024-07-03] MEDS: Enoxaparin 40 MG/0.4 ML Syringe SC (08:47)
[2024-07-03] MEDS: Gabapentin 300 MG Capsule PO (08:51)
[2024-07-03] MEDS: Mag Hydrox/Al Hydrox/Simeth 30 ML UDC PO (08:51)
--- NOTE | 2024-07-03 10:32 | PN.HOSP_ITS ---
Reason for Visit Reason for Visit: Diagnoses Other fluid overload (06/30/24) Unspecified acute conjunctivitis, right eye (06/30/24) Pleural effusion, not elsewhere classified (06/30/24) Other abnormalities of breathing (06/30/24) Hypoxemia (06/30/24) Other specified abnormal findings of blood chemistry (06/30/24) Patient's noncompliance with other medical treatment and regimen due to unspecified reason (06/30/24) Subjective Subjective Saw patient at bedside this morning. Patient was fatigued appearing but otherwise laying back comfortably in bed in no acute distress. Reported mild abdominal discomfort this morning, similar to yesterday. Denies any worsening abdominal distention after his paracentesis from 2 days ago. No other new concerns today. Objective Data Objective Data Vital Signs: Vital Signs Temp Pulse Resp BP Pulse Ox O2 Del Method O2 Flow Rate 98.2 F 76 14 95/63 93 Nasal Cannula 2 07/03/24 08:34 07/03/24 08:34 07/03/24 08:34 07/03/24 08:34 07/03/24 08:34 07/03/24 08:35 07/03/24 08:35 Oxygen Flow Rate (L/min) 2 Oxygen Delivery Method Nasal Cannula Weight: 71.3 kg Body Mass Index (BMI) 21.9 Intake & Output: Intake and Output for Last 24 Hours 07/01/24 07/02/24 07/03/24 23:59 23:59 23:59 Intake Total 540 / 540 1355 / 1355 Output Total 975 / 975 1000 / 1000 Balance -435 / -435 1355 / 1355 -1000 / -1000 Lab / Micro Data 07/03/24 05:20 07/03/24 05:20 Labs: Laboratory Results - last 24 hr 07/02/24 11:50: POC Glucose 107 H 07/02/24 16:38: POC Glucose 174 H 07/02/24 20:41: POC Glucose 218 H 07/03/24 05:20: WBC 4.3 L, RBC 2.23 L, Hgb 8.0 L, Hct 24.2 L, MCV 108.5 H, MCH 35.9 H, MCHC 33.1, RDW Std Deviation 66.8 H, RDW Coeff of Kalpana 16.9 H, Plt Count 107 L, MPV 10.8, Sodium 137, Potassium 4.0, Chloride 103, Carbon Dioxide 28.0, Anion Gap 6, BUN 15, Creatinine 1.15, Estim Creat Clear Calc 68.03, Est GFR (MDRD) Non-Af 72, BUN/Creatinine Ratio 13.1, Glucose 54 L, Calcium 7.4 L, Phosphorus 3.2, Magnesium 1.8 07/03/24 06:54: POC Glucose 128 H Physical Exam Const alert, oriented x3, no apparent distress and average body habitus Constitutional Narrative: Upper middle-aged male, appears older than stated age, thin and chronically ill- appearing, mildly fatigued appearing, otherwise laying back comfortably in bed in no acute distress. General Appearance: cooperative and comfortable HEENT normocephalic, head/scalp atraumatic, hearing grossly normal bilaterally, nasal mucous membranes and turbinates normal and moist oral mucous membranes Eyes PERRL, EOMs intact bilaterally and conjunctivae normal Neck full ROM Chest inspection of chest normal Resp normal respiratory effort, normal air movement, no use of accessory muscles and clear to auscultation bilaterally Cardio regular rate, regular rhythm, no murmurs and peripheral pulses 2+ throughout GI GI Narrative: Mild abdominal distention with diffuse tenderness palpation. Abdomen otherwise soft with normoactive bowel sounds. Back/Spine normal ROM Extremity normal to inspection and full ROM Skin no rashes or lesions noted Psych mental status grossly normal Assessment & Plan Assessment/Plan (1) Acute HFrEF (heart failure with reduced ejection fraction): (2) Abdominal ascites: PLAN: Plan Patient is a 63-year-old male who presented to [facility] ED on 06/30/2024 with worsening abdominal pain and distention. 1. New onset HFrEF, acute hypoxia with bilateral pleural effusions ? Cardiology consulted. 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 Chest x-ray on admit with cardiomegaly and moderate bilateral pleural effusions noted. BNP very elevated at 26,000. Required supplemental oxygen on admit, now weaned back to nasal cannula at rest. Continue IV Lasix 40 mg twice daily for now. Continue Jardiance that was started while inpatient. Has been relatively hypotensive as noted below, continue low-dose Lopressor as able. 2. Moderate to severe bioprosthetic aortic valve stenosis ? Cardiology consulted as above. History of bioprosthetic valve replacement in 2017 with mechanical valve replacement prior to that. Echo findings as above. Appreciate further cardiology recommendations. 3. Abdominal ascites, chronic abdominal pain with chronic alcoholic pancreatitis ? GI following. S/p paracentesis on 07/01 with 1700mL fluid removed. Had prior paracentesis done with transudative fluid so no paracentesis fluid studies were sent this time. No history of alcohol abuse as below and findings of ascites and thrombocytopenia could point to cirrhosis. However, liver appearance on CT not consistent with cirrhosis, no splenomegaly on CT and no varices on recent EGD. Per GI, have concern for possible ascites secondary to pancreatic leak in setting of chronic pancreatitis. Ascites may also be secondary to heart failure as noted above. Continue IV Lasix as above. Appreciate further GI recommendations. 4. Chronic macrocytic anemia, chronic thrombocytopenia ? Hemoglobin stable at baseline around 8. Platelet count stable at baseline 100-130. Monitor. Okay for DVT prophylaxis. 5. 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 Patient with blood glucose values in the 50s on the mornings of 07/02 and 07/03. Lantus 10 units at night discontinued. Okay to continue sliding scale with meals as needed. Continue home gabapentin. 6. Relative hypotension in setting of history of hypertension/hyperlipidemia/nonobstructive CAD ? Patient with hypotension despite being off all home blood pressure medications. Presume secondary to heart failure and aortic valve issues as noted above. Okay to continue home Lopressor at reduced dose of 12.5 mg twice daily as able. Continue midodrine 10 mg 3 times daily. 7. Tobacco abuse ? Continue nicotine patch while inpatient. Discussed cessation on discharge. Chronic medical conditions: ? History of alcohol abuse: Continue cessation on discharge. Continue p.o. thiamine and folate. ? History of sick sinus syndrome s/p pacemaker placement ? History of thoracic aortic aneurysm with dissection s/p surgical repair ? History of heroin abuse: Remote, has been clean for approximately 10 years. ? GERD: Continue home PPI. DVT prophylaxis: Lovenox CODE STATUS: Full code, verified Expected disposition: Home, TBD Total clinical time spent by myself addressing the patient's medical issues, reviewing all the data, and collaborating with patient's care team: 35 minutes. Charges/Coding Visit Charges Inpatient E&M: 57541 Subs Hosp L2
--- NOTE | 2024-07-03 11:27 | EX.PCM.CON.G ---
HPI Consult Data Date of Consult: 07/03/24 HPI Narrative Reason for Consultation: Ascites HPI Narrative: ANALILIA TALLEY, is a 63 M who presents back to the ER with worsening abdominal distention and shortness of breath. I saw the patient for the first time last month for possible decompensated liver disease. He has a chronic pancytopenia with a macrocytic anemia. He also has a history of alcohol abuse without previous diagnosis of cirrhosis. He has had persistent imaging over the last year which had showed intermittent bilateral effusions and intra-abdominal ascites. He had an an echo a year ago that showed a EF of 70% with no significant mitral regurgitation or tricuspid regurgitation and no signs of significant pulmonary hypertension. After being readmitted for significant protein, nutrition, weight loss and worsening abdominal distention he underwent paracentesis this weekend on 07/01/2024. He at 1.7 L of serosanguineous fluid removed. He also carries a past medical history of insulin-dependent diabetes, chronic pancreatitis secondary to alcohol and no recent endoscopy there was some type I gastric varices that were seen. There are also with signs of portal gastropathy seen throughout the stomach. Last year there was some suspicion of a secondary cause of his ascites other than alcohol such as nephrotic syndrome. However at that time he had no significant proteinuria. His stool was not checked for alpha-1 antitrypsin. HIV testing was also not performed. The starting weight of the patient as of a year ago was 67 kg and reduced to 57 kg in the past 8 months. He complains of general weakness, pruritus, and decreased pubic and axillary hair were also noticeable. Eight months earlier, he had profound jaundice without abdominal pain. This was suspected to be secondary to alcoholic hepatitis. He was not put on steroids at that time. This was at a different hospital. He was not put on ursodiol. His symptoms did get subsequently better. He did continue to drink up until approximately 2 months ago. The patient was lost to follow-up and never visited our hospital again until recently. He had no noteworthy medical or family history, including gastrointestinal bleeding or liver disease. [facility] Medical History (Updated 07/03/24 @ 11:[address] Hardy Friend, DO) Abdominal ascites MALIK (acute kidney injury) Seizures Alcoholic hepatitis Chronic pancreatitis Gastric wall thickening Alcohol dependence Anxiety Diabetes Pancreatitis Myocardial infarct Pacemaker AAA (abdominal aortic aneurysm) Admitted to alcohol detoxification center Alcohol abuse Hx of hypercholesterolemia History of diabetes mellitus Alcohol dependence Substance abuse Smoker Alcoholism Right bundle branch block (RBBB) Non-sustained ventricular tachycardia Thoracic aortic aneurysm SVT (supraventricular tachycardia) Ascending aortic dissection (~2005) Pure hypercholesterolemia Adrenal nodule Hiatal hernia Left carotid bruit Cardiac pacemaker in situ (~06/2016) Essential hypertension Pacemaker Sick sinus syndrome Tobacco use HTN (hypertension) Diabetes mellitus, type II Home Medications ?Medication ?Instructions ?Recorded ?Last Taken ?Type atorvastatin 10 mg tablet 10 mg PO DAILY CHOLESTEROL 10/17/20 04/19/23 History hydralazine 25 mg tablet 25 mg PO TID BP 10/17/20 04/19/23 History dapagliflozin propanediol 10 mg 10 mg PO DAILY DIABETES 09/30/21 04/19/23 History tablet (Farxiga) multivitamin 1 tab PO DAILY SUPPLEMENT 11/11/21 11/10/21 History gabapentin 300 mg capsule 300 mg PO DAILY NEUROPATHY 11/14/22 Unknown History insulin glargine 100 unit/mL (3 5 unit subcut 1200 DIABETES 11/14/22 04/19/23 History mL) subcutaneous pen (Lantus Solostar U-100 Insulin) metformin 500 mg tablet,extended 500 mg PO BID DIABETES 11/15/22 04/19/23 History release 24 hr L.acidophil,salivari-Bifido 2 cap PO BID #0 caps 05/20/23 Unknown Rx bifidum-Strep thermoph 175 mg capsule folic acid 1 mg tablet 1 mg PO DAILY@0800 supplement #0 05/20/23 Unknown Rx tabs furosemide 40 mg tablet 40 mg PO DAILY diuretic #30 tabs 05/20/23 Unknown Rx insulin lispro 100 unit/mL See Protocol subcut ACHS #0 mL 05/20/23 Unknown Rx subcutaneous pen (Humalog KwikPen (U-100) Insulin) spironolactone 25 mg tablet 12.5 mg (1/2 x 25 mg) PO DAILY 05/20/23 Unknown Rx diuretic #30 tabs thiamine HCl (vitamin B1) 100 mg 100 mg PO DAILYCM vitamin #0 tabs 05/20/23 Unknown Rx tablet (Vitamin B-1) pantoprazole 40 mg tablet,delayed 40 mg PO BID reflux #60 tabs 06/27/23 Unknown Rx release [id number] 1 cap PO TIDCM #90 caps 06/28/24 Unknown Rx 24,000-76,000-120,000 unit capsule,delayed rel (Creon) tramadol 50 mg tablet 50 mg PO Q8H PRN pain #9 tabs 06/28/24 Unknown Rx ferrous sulfate 325 mg (65 mg 325 mg PO DAILY 06/30/24 Unknown History iron) tablet (FeroSul) metoprolol tartrate 50 mg tablet 50 mg PO BID 06/30/24 Unknown History ramipril 10 mg capsule 10 mg PO DAILY 06/30/24 Unknown History Allergy/AdvReac Type Severity Reaction Status Date / Time No Known Allergies Allergy Verified 06/30/24 15:18 Family History Father CAD (coronary artery disease) Mother Dementia Surgical History H/O cardiac catheterization History of aortic aneurysm repair (~2016) History of cataract surgery History of hernia repair History of aortic valve replacement with bioprosthetic valve (~2016) H/O aortic valve replacement Social History household members: family housing: house Smoking Status: Current every day smoker tobacco type: cigarettes alcohol intake: current alcohol intake frequency: 0-2 drinks per day details: Reports currently ~ 2 tall boys daily. substance use type: former substance user caffeine: Yes Type: coffee Number of servings: 3 ROS Constitutional Constitutional: Denies fatigue, fever(s), poor appetite, weight gain or weight loss Gastrointestinal Gastrointestinal: Denies belching, bloating, change in bowel habits, change in stool character, chewing difficulty, coffee ground emesis, constipation, cramping, diarrhea, dyspepsia, dysphagia, early satiety, excessive flatus, fecal incontinence, heartburn, hematemesis, hematochezia, hemorrhoids, loose stools, melena, nausea, odynophagia, rectal bleeding, tenesmus, vomiting or weight changes Physical Exam Const alert, oriented x3, no apparent distress and average body habitus Constitutional Narrative: Patient appears chronically ill and older than his stated age. General Appearance: cooperative HEENT normocephalic, head/scalp atraumatic and hearing grossly normal bilaterally Eyes PERRL, EOMs intact bilaterally and conjunctivae normal Neck no lymphadenopathy, supple and no JVD Resp normal respiratory effort, no retractions, no use of accessory muscles and clear to auscultation bilaterally Cardio regular rate and regular rhythm GI GI Narrative: Patient's abdomen is distended with positive fluid wave and tender to palpation diffusely with bruising in abdomen likely from insulin injections. There is no rebound or guarding. Extremity normal to inspection, full ROM and no clubbing, cyanosis or edema Skin Skin Narrative: Patient has bruising over abdomen likely from recent insulin injections. Neuro oriented x3, CN's II-XII intact bilaterally, moves all extremities and no focal motor deficits Sensorium / Orientation: awake, alert, oriented to person, oriented to place and oriented to time Speech: speech normal Psych affect normal Lab / Micro Data 07/03/24 05:20 07/03/24 05:20 Labs: Laboratory Results - last 24 hr 07/02/24 11:50: POC Glucose 107 H 07/02/24 16:38: POC Glucose 174 H 07/02/24 20:41: POC Glucose 218 H 07/03/24 05:20: WBC 4.3 L, RBC 2.23 L, Hgb 8.0 L, Hct 24.2 L, MCV 108.5 H, MCH 35.9 H, MCHC 33.1, RDW Std Deviation 66.8 H, RDW Coeff of Kalpana 16.9 H, Plt Count 107 L, MPV 10.8, Sodium 137, Potassium 4.0, Chloride 103, Carbon Dioxide 28.0, Anion Gap 6, BUN 15, Creatinine 1.15, Estim Creat Clear Calc 68.03, Est GFR (MDRD) Non-Af 72, BUN/Creatinine Ratio 13.1, Glucose 54 L, Calcium 7.4 L, Phosphorus 3.2, Magnesium 1.8 07/03/24 06:54: POC Glucose 128 H Assessment & Plan Assessment/Plan (1) Chronic pancreatitis: (2) Pancytopenia: (3) Abdominal ascites: (4) Malnutrition: PLAN: 63-year-old with past medical history of chronic alcohol abuse complicated by macrocytosis, thrombocytopenia, coagulopathy, protein calorie malnutrition, chronic pancreatitis as Chronic ascites and pleural effusions. - Chronic alcoholic pancreatitis-I think his weight loss and diarrhea is likely associated with exocrine pancreatic insufficiency secondary to chronic pancreatitis and inability to secrete appropriate pancreatic enzymes for absorption. He should get a fecal elastase, celiac testing and stool for alpha-1 antitrypsin for protein calorie malnutrition. All 3 of these can lead to ascites with a low SAAG gradient. -Chronic recurrent ascites and pleural effusions-he would likely need a liver biopsy to see if he does have cirrhosis then that would help us determine if he has cirrhotic or noncirrhotic ascites as the picture is not clear regarding if this is from cirrhosis. He will also need paracentesis and likely thoracentesis with a SAAG gradient, LDH for peritoneal carcinomatosis or infiltrative disease, stool for alpha-1 antitrypsin for protein-losing neuropathy, tissue transglutaminase for celiac disease, anti-smooth muscle antibody and antimitochondrial antibody for underlying liver disease as his previous viral hepatitis workup was negative, HIV for protein-losing neuropathy, HELENA plus SPEP. - Thrombocytopenia -possibly secondary to splenic sequestration in the setting of cirrhosis. On his imaging he does not have significant splenomegaly. - Hepatomegaly-secondary to fatty liver disease from alcohol. He could have a significant amount of good liver left if he is able to get his ascites under control as he does not have splenomegaly. Particularly that is a reversible and at least a worsening portal hypertension and the complications associated with worsening portal hypertension. 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 he should have B12 and folate levels checked. - 500 mg sodium restriction Charges/Coding Visit Charges Inpatient E&M: 52569 Init Hosp L3
[2024-07-03] MEDS: Albuterol 2.5 MG/3 ML VIAL.NEB. INHALATION (11:39)
[2024-07-03 11:50] LABS: CRP < 3.00 mg/L (0.0-3.0)
[2024-07-03] MEDS: Ferrous Sulfate 325 MG Tablet PO (11:52)
[2024-07-03 12:03] LABS: HIV Nonreactive (Nonreactive)
[2024-07-03 12:06] LABS: Erythrocyte Sedimentation Rate < 1 mm/hr (0-20)
[2024-07-03 12:07] LABS: LDH 415 U/L (87-241)
[2024-07-03 12:18] LABS: Bedside Glucose 120 mg/dL (74-106)
[2024-07-03 16:41] LABS: Bedside Glucose 170 mg/dL (74-106)
[2024-07-03] MEDS: MELATONIN 3 MG TABLET PO (21:30)
[2024-07-03] MEDS: Acetaminophen 325 MG Tablet PO (21:30)
[2024-07-03 22:05] LABS: Bedside Glucose 174 mg/dL (74-106)
[2024-07-04] VITALS (8 sets, daily range): BP systolic 90–131; BP diastolic 59–91; PULSE 61–80; RESP 14–17; TEMP 36.1–36.9; O2SAT 89–99; BMI 20.9
[2024-07-04] MEDS: traMADol 50 MG Tablet PO ×3 (01:16→17:32)
[2024-07-04] MEDS: 0.9% Saline Lock 10 ML Syringe IV ×4 (04:21→21:50)
[2024-07-04 04:38] LABS: International Normalized Ratio 1.2; Prothrombin Time (Protime)PT. 15.2 SECONDS (11.7-14.9)
[2024-07-04 04:39] LABS: Partial Thromboplast Time 28.2 Seconds (24.1-36.2)
[2024-07-04] MEDS: Dicyclomine 10 MG Capsule PO ×4 (06:36→21:50)
[2024-07-04 06:58] LABS: Bedside Glucose 119 mg/dL (74-106)
[2024-07-04] MEDS: Ondansetron 4 MG/2 ML Vial IV (08:07)
--- NOTE | 2024-07-04 10:30 | CON.PCM.CA_ITS ---
Assessment & Plan Assessment/Plan (1) Pancytopenia: (2) Abdominal ascites: (3) Pleural effusion: (4) Thrombocytopenia: (5) Chronic pancreatitis: (6) Acute HFrEF (heart failure with reduced ejection fraction): PLAN: Cardiac care plan recommendations; 63-year-old patient presenting with abdominal distention and shortness of breath. Patient has history of alcohol abuse and decompensated liver disease with thrombocytopenia/macrocytic anemia/chronic pancytopenia. He was admitted for significant protein/nutrition weight loss and worsening abdominal distention and underwent paracentesis. And has been seen and followed by the GI. From cardiac standpoint patient has a history of mechanical aortic valve and a redo valve using bovine valve at [facility]. As well he had a pacemaker. He denied any symptoms of chest pain no dizziness lightheadedness. On review of the record it appears patient is noncompliant for follow-up up The echocardiographic evaluation here revealed the significant change in the EF from previous With moderate LV systolic dysfunction Ejection fraction in the range of 35-40%. Severe concentric left ventricular hypertrophy With moderate to severe thoracic valve stenosis Aortic valve area 1.1 cm2 Maximal gradient across aortic valve is 60 mmHg with a mean gradient of 40.2 mmHg. Impaired LV relaxation consistent with diastolic dysfunction. With a mean gradient of 40 mmHg. 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 Yaneli Carbone MD,[facility] HPI Consult Data Date of Consult: 07/04/24 HPI Narrative Reason for Consultation: Moderate LV systolic dysfunction/moderate/severe bioprosth. aortic stenosis HPI Narrative: ANALILIA TALLEY, is a 63 M who presents [facility] Medical History (Updated 07/03/24 @ 14:[address] Chris Aragon, ) Abdominal ascites MALIK (acute kidney injury) Seizures Alcoholic hepatitis Chronic pancreatitis Gastric wall thickening Alcohol dependence Anxiety Diabetes Pancreatitis Myocardial infarct Pacemaker AAA (abdominal aortic aneurysm) Admitted to alcohol detoxification center Alcohol abuse Hx of hypercholesterolemia History of diabetes mellitus Alcohol dependence Substance abuse Smoker Alcoholism Right bundle branch block (RBBB) Non-sustained ventricular tachycardia Thoracic aortic aneurysm SVT (supraventricular tachycardia) Ascending aortic dissection (~2005) Pure hypercholesterolemia Adrenal nodule Hiatal hernia Left carotid bruit Cardiac pacemaker in situ (~06/2016) Essential hypertension Pacemaker Sick sinus syndrome Tobacco use HTN (hypertension) Diabetes mellitus, type II Home Medications ?Medication ?Instructions ?Recorded ?Last Taken ?Type atorvastatin 10 mg tablet 10 mg PO DAILY CHOLESTEROL 0 10/17/20 04/19/23 History hydralazine 25 mg tablet 25 mg PO TID BP 10/17/2001/01 History dapagliflozin propanediol 10 mg 10 mg PO DAILY DIABETE S 09/30/21 04/19/23 History tablet (Farxiga) multivitamin 1 tab PO DAILY SUPPLEMENT 11/10/21 History gabapentin 300 mg capsule 300 mg PO DAILY NEUROPATHY 1 Unknown History insulin glargine 100 unit/mL (3 5 unit subcut 1200 MAC BETES 11/14/22 04/19/23 History mL) subcutaneous pen (Lantus Solostar U-100 Insulin) metformin 500 mg tablet,extended 500 mg PO BID DIABETE S 11/15/22 04/19/23 History release 24 hr L.acidophil,salivari-Bifido 2 cap PO BID #0 caps 05/19 Unknown Rx bifidum-Strep thermoph 175 mg capsule folic acid 1 mg tablet 1 mg PO DAILY@0800 supplemen t #0 05/20/23 Unknown Rx tabs furosemide 40 mg tablet 40 mg PO DAILY diuretic #30 tabs 05/20/23 Unknown Rx insulin lispro 100 unit/mL See Protocol subcut ACHS #0 mL 05/20/23 Unknown Rx subcutaneous pen (Humalog KwikPen (U-100) Insulin) spironolactone 25 mg tablet 12.5 mg (1/2 x 25 mg) PO D AILY 05/20/23 Unknown Rx diuretic #30 tabs thiamine HCl (vitamin B1) 100 mg 100 mg PO DAILYCM vit padilla #0 tabs 05/20/23 Unknown Rx tablet (Vitamin B-1) pantoprazole 40 mg tablet,delayed 40 mg PO BID reflux #60 tabs 06/27/23 Unknown Rx release rurovd-dkawwhxn-brnuzah 1 cap PO TIDCM #90 caps 06/09 03/04 Unknown Rx 24,000-76,000-120,000 unit capsule,delayed rel (Creon) tramadol 50 mg tablet 50 mg PO Q8H PRN pain #9 tab s 06/28/24 Unknown Rx ferrous sulfate 325 mg (65 mg 325 mg PO DAILY 06/30/24 Unknown History iron) tablet (FeroSul) metoprolol tartrate 50 mg tablet 50 mg PO BID 06/30/24 Unknown History ramipril 10 mg capsule 10 mg PO DAILY 06/30/24 Unkn own History Allergy/AdvReac Type Severity Reaction Status Date / Time No Known Allergies Allergy Verified 06/30/24 15:18 Family History Father CAD (coronary artery disease) Mother Dementia Surgical History H/O cardiac catheterization History of aortic aneurysm repair (~2016) History of cataract surgery History of hernia repair History of aortic valve replacement with bioprosthetic valve (~2016) H/O aortic valve replacement Social History household members: family housing: house Smoking Status: Current every day smoker tobacco type: cigarettes alcohol intake: current alcohol intake frequency: 0-2 drinks per day details: Reports currently ~ 2 tall boys daily. substance use type: former substance user caffeine: Yes Type: coffee Number of servings: 3 Physical Exam Cardio Cardio Narrative: Review of the groundwater monitoring technician showed paced atrial rhythm Cardiac exam S1-S2 is irregular Systolic murmur heard in the aortic valve area/mid diastolic murmur Chest exam normal auscultation bilateral. Examination lower extremity no lower extremity edema. Risk Stratification Risk Stratification Applicable: No Objective Data Vital Signs: Vital Signs Temp Pulse Resp BP Pulse Ox O2 Del Method O2 Flow Rate 98.3 F 61 14 90/67 95 Nasal Cannula 2 07/04/24 07:54 07/04/24 07:54 07/04/24 07:54 07/04/24 07:54 07/04/24 08:00 07/04/24 08:00 07/04/24 08:00 Oxygen Flow Rate (L/min) 2 Oxygen Delivery Method Nasal Cannula Weight: 150 lb 5.684 oz Body Mass Index (BMI) 20.9 Intake & Output: Intake and Output for Last 24 Hours 07/02/24 07/03/2407/04/25 23:59 23:59 23:59 Intake Total 1355 / 1355 1600 / 1600 0 / 0 Output Total 4400 / 4400 400 / 400 Balance 1355 / 1355 -2800 / -2800 -400 / -400 Lab / Micro Data 07/03/24 05:20 07/03/24 05:20 Labs: Laboratory Results - last 24 hr 07/03/24 05:20: ESR < 1, Lactate Dehydrogenase 415 H, C-React Prot Ext Range < 3.00, HIV 1&2 Antibody Nonreactive 07/03/24 11:54: POC Glucose 120 H 07/03/24 15:57: POC Glucose 170 H 07/03/24 21:35: POC Glucose 174 H 07/04/24 04:14: PT 15.2 H, INR 1.2, APTT 28.2, Urine Total Protein Cancelled, Urine Albumin Cancelled, U Atvxl-4-Yrpqhagc Cancelled, U Dgaoi-6-Nmtkvgmo Cancelled, U Beta Globulin Cancelled, U Gamma Globulin Cancelled, U PEP M-Herb Cancelled, Urine Immunofixation Cancelled, Urine HELENA Interpret Cancelled, Ur Immunofix PEP Note Cancelled, RAMANA-1 Antibody TNP, Sm (Khalil) Antibody TNP, OCEAN [employer]GUARD Antibody TNP, Scl-70 Scleroderma Ab TNP, Antichromatin Antibodies TNP, Centromere B Antibody TNP 07/04/24 06:35: POC Glucose 119 H Cardiology Labs/Tests 07/04/24 04:14: PT 15.2 H, INR 1.2, APTT 28.2 Rhythm: EKG: ECHO: Stress Test: Cardiac Cath: PCI: CT Surgery: Holter monitor: EPS: PPM: CXR: Chest CT Scan: Radiography Diagnostic Testing: Radiology Impression Echocardiogram 07/01/24 12:44 Interpretation Summary The estimated ejection fraction is 35-40 %. Moderate LV systolic dysfunction with global LV hypokinesia. 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 Mean aortic valve gradient 40.2 mmHg. Pacemaker lead seen in the right ventricle Trivial MR Transmitral Doppler flow revealed impaired relaxation of LV. Ordering Physician: Melonie De La Rosa Referring Physician: Marianna Shine Performed By: Maria L Burleson, MARIBEL, RVT
--- NOTE | 2024-07-04 11:35 | PCM.PN.HOSP ---
Reason for Visit Reason for Visit: Diagnoses Other pancytopenia (06/30/24) Thrombocytopenia, unspecified (06/30/24) Unspecified protein-calorie malnutrition (06/30/24) Other fluid overload (06/30/24) Unspecified acute conjunctivitis, right eye (06/30/24) Acute systolic (congestive) heart failure (06/30/24) Pleural effusion, not elsewhere classified (06/30/24) Other chronic pancreatitis (06/30/24) Other abnormalities of breathing (06/30/24) Hypoxemia (06/30/24) Other ascites (06/30/24) Other specified abnormal findings of blood chemistry (06/30/24) Patient's noncompliance with other medical treatment and regimen due to unspecified reason (06/30/24) Subjective Subjective Saw patient at bedside this morning. Patient had slightly more energy today compared to yesterday. Was reporting mild lower abdominal cramping and discomfort, similar yesterday. Denies any chest pain or shortness of breath. Has had good urine output on IV Lasix. No other new concerns today. Objective Data Objective Data Vital Signs: Vital Signs Temp Pulse Resp BP Pulse Ox O2 Del Method O2 Flow Rate 98.3 F 61 14 90/67 95 Nasal Cannula 2 07/04/24 07:54 07/04/24 07:54 07/04/24 07:54 07/04/24 07:54 07/04/24 08:00 07/04/24 08:00 07/04/24 08:00 Oxygen Flow Rate (L/min) 2 Oxygen Delivery Method Nasal Cannula Weight: 68.2 kg Body Mass Index (BMI) 20.9 Intake & Output: Intake and Output for Last 24 Hours 07/02/24 07/03/24 07/04/24 23:59 23:59 23:59 Intake Total 1355 / 1355 1600 / 1600 0 / 0 Output Total 4400 / 4400 400 / 400 Balance 1355 / 1355 -2800 / -2800 -400 / -400 Lab / Micro Data 07/03/24 05:20 07/03/24 05:20 Labs: Laboratory Results - last 24 hr 07/03/24 05:20: ESR < 1, Lactate Dehydrogenase 415 H, C-React Prot Ext Range < 3.00, HIV 1&2 Antibody Nonreactive 07/03/24 11:54: POC Glucose 120 H 07/03/24 15:57: POC Glucose 170 H 07/03/24 21:35: POC Glucose 174 H 07/04/24 04:14: PT 15.2 H, INR 1.2, APTT 28.2, Urine Total Protein Cancelled, Urine Albumin Cancelled, U Yxces-9-Adwooqkn Cancelled, U Yxvdf-5-Ngxtznzi Cancelled, U Beta Globulin Cancelled, U Gamma Globulin Cancelled, U PEP M-Herb Cancelled, Urine Immunofixation Cancelled, Urine HELENA Interpret Cancelled, Ur Immunofix PEP Note Cancelled, RAMANA-1 Antibody TNP, Sm (Khalil) Antibody TNP, COLLEGE PH[employer] INSTRUCTOR Antibody TNP, Scl-70 Scleroderma Ab TNP, Antichromatin Antibodies TNP, Centromere B Antibody TNP 07/04/24 06:35: POC Glucose 119 H Radiography Diagnostic Testing: Radiology Impression Echocardiogram 07/01/24 12:44 Interpretation Summary The estimated ejection fraction is 35-40 %. Moderate LV systolic dysfunction with global LV hypokinesia. 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 Mean aortic valve gradient 40.2 mmHg. Pacemaker lead seen in the right ventricle Trivial MR Transmitral Doppler flow revealed impaired relaxation of LV. Ordering Physician: Melonie De La Rosa Referring Physician: Marianna Shine Performed By: Maria L uBrleson, RDCS, RVT Physical Exam Const alert, oriented x3, no apparent distress and average body habitus Constitutional Narrative: Upper middle-aged male, appears older than stated age, thin and chronically ill-appearing, mildly fatigued appearing, otherwise laying back comfortably in bed in no acute distress. Stable. General Appearance: cooperative and comfortable HEENT normocephalic, head/scalp atraumatic, hearing grossly normal bilaterally, nasal mucous membranes and turbinates normal and moist oral mucous membranes Eyes PERRL, EOMs intact bilaterally and conjunctivae normal Neck full ROM Chest inspection of chest normal Resp normal respiratory effort, normal air movement, no use of accessory muscles and clear to auscultation bilaterally Cardio regular rate, regular rhythm and peripheral pulses 2+ throughout Cardio Narrative: Systolic murmur noted. GI GI Narrative: Mild abdominal distention with mild diffuse tenderness to palpation. Abdomen otherwise soft with normoactive bowel sounds. Stable. Back/Spine normal ROM Extremity normal to inspection and full ROM Skin no rashes or lesions noted Psych mental status grossly normal Assessment & Plan Assessment/Plan (1) Acute HFrEF (heart failure with reduced ejection fraction): (2) Abdominal ascites: PLAN: Plan Patient is a 63-year-old male who presented to [facility] ED on 06/30/2024 with worsening abdominal pain and distention. 1. 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 Cardiology following. History of bioprosthetic valve replacement in 2016 with mechanical valve replacement prior to that. 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 Chest x-ray on admit with cardiomegaly and moderate bilateral pleural effusions noted. BNP very elevated at 26,000. Required supplemental oxygen on admit, now weaned back to nasal cannula at rest. Per cardiology, suspect valve issue as below along with medication nonadherence are primary contributors to heart failure. Okay to treat medically at this time with plan for close outpatient follow-up for possible ALBERT/left heart cath/right heart cath. Will transition from IV Lasix to p.o. Lasix tomorrow. Will treat with low-dose Lasix, spironolactone, Toprol, lisinopril and empagliflozin for now and monitor BP closely. 2. Abdominal ascites, chronic abdominal pain with chronic alcoholic pancreatitis ? GI following. S/p paracentesis on 07/01 with 1700mL fluid removed. Had prior paracentesis done with transudative fluid so no paracentesis fluid studies were sent this time. No history of alcohol abuse as below and findings of ascites and thrombocytopenia could point to cirrhosis. However, liver appearance on CT not consistent with cirrhosis, no splenomegaly on CT and no varices on recent EGD. Suspect abdominal ascites are in part secondary to heart failure as noted above. Per GI, have concern for possible pancreatic leak contributing to ascites in setting of chronic pancreatitis. Large lab workup sent, will follow-up as results become available. Appreciate further GI recommendations. 3. Chronic macrocytic anemia, chronic thrombocytopenia ? Hemoglobin stable at baseline around 8. Platelet count stable at baseline 100-130. Monitor. Okay for DVT prophylaxis. 4. 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 Patient with blood glucose values in the 50s on the mornings of 07/02 and 07/03. Lantus 10 units at night discontinued. Okay to continue sliding scale with meals as needed. Continue home gabapentin. 5. Relative hypotension in setting of history of hypertension/hyperlipidemia/nonobstructive CAD ? Patient with hypotension on admit despite being off all home blood pressure medications. Presume secondary to heart failure and aortic valve issues as noted above. Blood pressure much improved. Treating with regimen as above and okay to continue midodrine 10 mg 3 times daily at this time as well. 6. Tobacco abuse ? Continue nicotine patch while inpatient. Discussed cessation on discharge. Chronic medical conditions: ? History of alcohol abuse: Continue cessation on discharge. Continue p.o. thiamine and folate. ? History of sick sinus syndrome s/p pacemaker placement ? History of thoracic aortic aneurysm with dissection s/p surgical repair ? History of heroin abuse: Remote, has been clean for approximately 10 years. ? GERD: Continue home PPI. DVT prophylaxis: Lovenox CODE STATUS: Full code, verified Expected disposition: Home, 1 to 2 days Total clinical time spent by myself addressing the patient's medical issues, reviewing all the data, and collaborating with patient's care team: 35 minutes. Charges/Coding Visit Charges Inpatient E&M: 58734 Subs Hosp L2
[2024-07-04] MEDS: Thiamine Hydrochloride 100 MG Tablet PO (11:50)
[2024-07-04] MEDS: Folic Acid 1 MG Tablet PO (11:50)
[2024-07-04] MEDS: Lactobacillis Acidophilus 2 CAP PO ×2 (11:50→21:51)
[2024-07-04] MEDS: Ciprofloxacin 0.3% 2.5ml Bottle 1 DRP RIGHT EYE ×2 (11:50→21:51)
[2024-07-04] MEDS: Pantoprazole Sodium 40 MG Tablet PO ×2 (11:51→21:50)
[2024-07-04] MEDS: Enoxaparin 40 MG/0.4 ML Syringe SC (11:51)
[2024-07-04] MEDS: Atorvastatin Calcium 10 MG Tablet PO (11:51)
[2024-07-04] MEDS: Multivitamins,Therapeutic Tablet 1 TABLET PO (11:51)
[2024-07-04] MEDS: Empagliflozin 25 MG Tablet PO (11:51)
[2024-07-04] MEDS: Ferrous Sulfate 325 MG Tablet PO (11:52)
[2024-07-04] MEDS: Creon 24,000 unit DR Capsule 1 CAP PO ×2 (11:52→16:49)
[2024-07-04] MEDS: Midodrine HCl 5 MG Tablet 10 MG PO ×2 (11:52→16:49)
[2024-07-04] MEDS: Acetaminophen 325 MG Tablet PO ×2 (11:57→21:50)
[2024-07-04] MEDS: Gabapentin 300 MG Capsule PO (11:57)
[2024-07-04] MEDS: Furosemide 40 MG/4 ML Vial IV (12:15)
[2024-07-04 12:59] LABS: Bedside Glucose 113 mg/dL (74-106)
[2024-07-04] MEDS: Insulin Lispro 100 UNIT/ML INSULN.PEN SC ×2 (16:45→21:51)
[2024-07-04 17:04] LABS: Bedside Glucose 319 mg/dL (74-106)
--- NOTE | 2024-07-04 17:41 | PN_ITS ---
Assessment & Plan Assessment/Plan (1) Chronic pancreatitis: (2) Pancytopenia: (3) Abdominal ascites: (4) Malnutrition: PLAN: 63-year-old with past medical history of chronic alcohol abuse complicated by macrocytosis, thrombocytopenia, coagulopathy, protein calorie malnutrition, chronic pancreatitis as Chronic ascites and pleural effusions. - Chronic alcoholic pancreatitis-I think his weight loss and diarrhea is likely associated with exocrine pancreatic insufficiency secondary to chronic pancreatitis and inability to secrete appropriate pancreatic enzymes for absorption. He should get a fecal elastase, celiac testing and stool for alpha- 1 antitrypsin for protein calorie malnutrition. All 3 of these can lead to ascites with a low SAAG gradient. -Chronic recurrent ascites and pleural effusions-he would likely need a liver biopsy to see if he does have cirrhosis then that would help us determine if he has cirrhotic or noncirrhotic ascites as the picture is not clear regarding if this is from cirrhosis. He will also need paracentesis and likely thoracentesis with a SAAG gradient, LDH for peritoneal carcinomatosis or infiltrative disease, stool for alpha-1 antitrypsin for protein-losing neuropathy, tissue transglutaminase for celiac disease, anti-smooth muscle antibody and antimitochondrial antibody for underlying liver disease as his previous viral hepatitis workup was negative, HIV for protein-losing neuropathy, HELENA plus SPEP. - Thrombocytopenia -possibly secondary to splenic sequestration in the setting of cirrhosis. On his imaging he does not have significant splenomegaly. - Hepatomegaly-secondary to fatty liver disease from alcohol. He could have a significant amount of good liver left if he is able to get his ascites under control as he does not have splenomegaly. Particularly that is a reversible and at least a worsening portal hypertension and the complications associated with worsening portal hypertension. 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 he should have B12 and folate levels checked. - 500 mg sodium restriction 07/04/2024-patient does not have any complaints and underwent evaluation by cardiology today. Blood work was sent off for chronic liver disease. He underwent repeat transthoracic echocardiogram and it showed severe concentric left ventricular hypertrophy with moderate to severe thoracic valve aortic stenosis in the setting of a patient that are already has significant heart disease. Recommending possible outpatient ALBERT, left heart catheter right heart catheterization. His I's and O's are only slightly positive today. He is tolerating diuretic therapy and is eating. Blood sugars have been stable. Since he has congestive heart failure with decreased EF that would explain his new onset ascites and pleural effusions. Recommend to continue medical therapy and await biochemical workup. Poor prognosis. Visit Charges Inpatient E&M: 70674 [facility] Hosp L3
[2024-07-04] MEDS: MELATONIN 3 MG TABLET PO (21:50)
[2024-07-04 22:17] LABS: Bedside Glucose 184 mg/dL (74-106)
[2024-07-05] VITALS (9 sets, daily range): BP systolic 91–105; BP diastolic 66–79; PULSE 60–72; RESP 15–18; TEMP 36.4–36.7; O2SAT 93–98; BMI 20.3
[2024-07-05] MEDS: 0.9% Saline Lock 10 ML Syringe IV ×2 (03:15→09:38)
[2024-07-05] MEDS: traMADol 50 MG Tablet PO ×3 (03:15→21:00)
[2024-07-05 03:35] LABS: Hematocrit 26.7 % (40-54); Hemoglobin 8.9 g/dL (13.0-16.5); Mean Corp Hgb Conc 33.3 g/dL (32-36); Mean Corpuscular Hgb 36.2 pg (27.0-32.0); Mean Corpuscular Volume 108.5 fL (80-94); Mean Platelet Vol. 11.2 fl (6.2-12.0); POSITIVE MORPHOLOGY YES; Platelet Count 141 K/mm3 (150-450); RBC Distribution Width CV 16.7 % (11.6-14.6); RBC Distribution Width SD 66.9 fl (35.1-43.9); Red Blood Count 2.46 M/mm3 (4.6-6.2); White Blood Count 5.3 K/mm3 (4.4-11.0)
[2024-07-05 04:04] LABS: Anion Gap 7 (5-15); BUN 23 mg/dL (4-19); BUN/Creat Ratio 13.5 RATIO (10-20); Calcium,Total 7.9 mg/dL (7.6-11.0); Carbon Dioxide 28.7 mmol/L (21.0-32.0); Chloride 96 mmol/L (98-108); EST Glomerular Filtration Rate 45 (>60); Estimated Creatinine Clearance 44.02 ml/min (50-250); Glucose 136 mg/dL (70-99); Potassium 5.1 mmol/L (3.3-5.1); Sodium Level 132 mmol/L (133-145)
[2024-07-05 04:49] LABS: Scan Indicated on CBC? Y/N YES- FLAGS NOTED
[2024-07-05] MEDS: Dicyclomine 10 MG Capsule PO ×4 (06:39→21:01)
[2024-07-05] MEDS: Insulin Lispro 100 UNIT/ML INSULN.PEN SC ×2 (06:39→16:15)
[2024-07-05 07:03] LABS: Bedside Glucose 210 mg/dL (74-106)
[2024-07-05] MEDS: Gabapentin 300 MG Capsule PO (09:27)
[2024-07-05] MEDS: Acetaminophen 325 MG Tablet PO (09:27)
[2024-07-05] MEDS: Midodrine HCl 5 MG Tablet 10 MG PO ×3 (09:27→16:15)
[2024-07-05] MEDS: Creon 24,000 unit DR Capsule 1 CAP PO ×3 (09:28→16:15)
[2024-07-05] MEDS: Folic Acid 1 MG Tablet PO (09:29)
[2024-07-05] MEDS: Lactobacillis Acidophilus 2 CAP PO ×2 (09:29→21:01)
[2024-07-05] MEDS: Thiamine Hydrochloride 100 MG Tablet PO (09:29)
[2024-07-05] MEDS: Atorvastatin Calcium 10 MG Tablet PO (09:30)
[2024-07-05] MEDS: Enoxaparin 40 MG/0.4 ML Syringe SC (09:30)
[2024-07-05] MEDS: Pantoprazole Sodium 40 MG Tablet PO ×2 (09:30→21:01)
[2024-07-05] MEDS: Ciprofloxacin 0.3% 2.5ml Bottle 1 DRP RIGHT EYE ×2 (09:31→21:04)
[2024-07-05] MEDS: Multivitamins,Therapeutic Tablet 1 TABLET PO (09:31)
[2024-07-05] MEDS: Empagliflozin 10 MG Tablet PO (09:38)
[2024-07-05] MEDS: 0.9% Normal Saline (1000mL) 1,000 ML 250 ML IV (09:43)
[2024-07-05 11:08] LABS: Anti-Centromere B Ab <0.2 AI (0.0-0.9); Anti-Chromatin <0.2 AI (0.0-0.9); Anti-Jo <0.2 AI (0.0-0.9); Anti-Scleroderma-70 AB <0.2 AI (0.0-0.9); Anti-dsDNA Ab <1 IU/mL (0-9); RNP Ab <0.2 AI (0.0-0.9); SJOGREN'S Anti-SS-A test < 0.2 AI (0.0-0.9); SJOGREN'S Anti-SS-B test < 0.2 AI (0.0-0.9); Smith Ab <0.2 AI (0.0-0.9)
--- NOTE | 2024-07-05 11:19 | PN.HOSP_ITS ---
Reason for Visit Reason for Visit: Diagnoses Other pancytopenia (06/30/24) Thrombocytopenia, unspecified (06/30/24) Unspecified protein-calorie malnutrition (06/30/24) Other fluid overload (06/30/24) Unspecified acute conjunctivitis, right eye (06/30/24) Acute systolic (congestive) heart failure (06/30/24) Pleural effusion, not elsewhere classified (06/30/24) Other chronic pancreatitis (06/30/24) Other abnormalities of breathing (06/30/24) Hypoxemia (06/30/24) Other ascites (06/30/24) Other specified abnormal findings of blood chemistry (06/30/24) Patient's noncompliance with other medical treatment and regimen due to unspecified reason (06/30/24) Subjective Subjective Saw patient at bedside this morning. Patient appeared similar today to yesterday, was sitting up comfortably in bed, conversing normally and in no acute distress. Had very mild abdominal discomfort this morning, similar to previous days. No other new concerns today. Objective Data Objective Data Vital Signs: Vital Signs Temp Pulse Resp BP Pulse Ox O2 Del Method O2 Flow Rate 97.5 F L 72 16 95/67 94 Room Air 2 07/05/24 09:13 07/05/24 09:29 07/05/24 09:13 07/05/24 09:13 07/05/24 09:13 07/05/24 09:15 07/04/24 14:00 Oxygen Flow Rate (L/min) 2 Oxygen Delivery Method Room Air Weight: 66.1 kg Body Mass Index (BMI) 20.3 Intake & Output: Intake and Output for Last 24 Hours 07/03/24 07/04/24 07/05/24 23:59 23:59 23:59 Intake Total 1600 / 1600 0 / 0 550 / 550 Output Total 4400 / 4400 800 / 800 700 / 700 Balance -2800 / -2800 -800 / -800 -150 / -150 Lab / Micro Data 07/05/24 03:23 07/05/24 03:23 Labs: Laboratory Results - last 24 hr 07/03/24 09:37: Miscellaneous Test 2 COMMENT 07/04/24 04:14: RAMANA-1 Antibody <0.2, SS-A/Ro IgG Antibody < 0.2, SS-B/La IgG Antibody < 0.2, Sm (Khalil) Antibody <0.2, ROD BUSTER HELPER Antibody <0.2, Scl-70 Scleroderma Ab <0.2, Double Strand DNA Ab <1, Antichromatin Antibodies <0.2, Centromere B Antibody <0.2 07/04/24 11:45: POC Glucose 113 H 07/04/24 16:44: POC Glucose 319 H 07/04/24 21:49: POC Glucose 184 H 07/05/24 03:23: WBC 5.3, RBC 2.46 L, Hgb 8.9 L, Hct 26.7 L, MCV 108.5 H, MCH 36.2 H, MCHC 33.3, RDW Std Deviation 66.9 H, RDW Coeff of Kalpana 16.7 H, Plt Count 141 L, MPV 11.2, Sodium 132 L, Potassium 5.1, Chloride 96 L, Carbon Dioxide 28.7, Anion Gap 7, BUN 23 H, Creatinine 1.70 H, Estim Creat Clear Calc 44.02 L, Est GFR (MDRD) Non-Af 45 L, BUN/Creatinine Ratio 13.5, Glucose 136 H, Calcium 7.9 07/05/24 06:37: POC Glucose 210 H Physical Exam Const alert, oriented x3, no apparent distress and average body habitus Constitutional Narrative: Upper middle-aged male, appears older than stated age, thin and chronically ill- appearing, mildly fatigued appearing, otherwise laying back comfortably in bed in no acute distress. Stable. General Appearance: cooperative and comfortable HEENT normocephalic, head/scalp atraumatic, hearing grossly normal bilaterally, nasal mucous membranes and turbinates normal and moist oral mucous membranes Eyes PERRL, EOMs intact bilaterally and conjunctivae normal Neck full ROM Chest inspection of chest normal Resp normal respiratory effort, normal air movement, no use of accessory muscles and clear to auscultation bilaterally Cardio regular rate, regular rhythm and peripheral pulses 2+ throughout Cardio Narrative: Systolic murmur noted. GI GI Narrative: Mild abdominal distention with mild tenderness to palpation in lower abdomen. Abdomen otherwise soft with normoactive bowel sounds. Stable. Back/Spine normal ROM Extremity normal to inspection and full ROM Skin no rashes or lesions noted Psych mental status grossly normal Assessment & Plan Assessment/Plan (1) Acute HFrEF (heart failure with reduced ejection fraction): (2) Abdominal ascites: PLAN: Plan Patient is a 63-year-old male who presented to [facility] ED on 06/30/2024 with worsening abdominal pain and distention. 1. 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 Cardiology following. History of bioprosthetic valve replacement in 2016 with mechanical valve replacement prior to that. 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 Chest x-ray on admit with cardiomegaly and moderate bilateral pleural effusions noted. BNP very elevated at 26,000. Required supplemental oxygen on admit, now weaned back to nasal cannula at rest. Per cardiology, suspect valve issue as below along with medication nonadherence are primary contributors to heart failure. Okay to treat medically at this time with plan for close outpatient follow-up for possible ALBERT/left heart cath/right heart cath. Developed mild MALIK on 07/05, IV Lasix discontinued and will plan to restart p.o. Lasix tomorrow. Will also hold spironolactone, lisinopril and empagliflozin for today and plan to restart tomorrow. Continue low-dose Toprol. If kidney function improved tomorrow, planning for discharge home. 2. Abdominal ascites, chronic abdominal pain with chronic alcoholic pancreatitis ? GI following. S/p paracentesis on 07/01 with 1700mL fluid removed. Had prior paracentesis done with transudative fluid so no paracentesis fluid studies were sent this time. No history of alcohol abuse as below and findings of ascites and thrombocytopenia could point to cirrhosis. However, liver appearance on CT not consistent with cirrhosis, no splenomegaly on CT and no varices on recent EGD. Suspect abdominal ascites are in part secondary to heart failure as noted above. Per GI, have concern for possible pancreatic leak contributing to ascites in setting of chronic pancreatitis. Large lab workup sent, will follow- up as results become available. Appreciate further GI recommendations. 3. Chronic macrocytic anemia, chronic thrombocytopenia ? Hemoglobin stable at baseline around 8. Platelet count stable at baseline 100-130. Monitor. Okay for DVT prophylaxis. 4. 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 Patient with blood glucose values in the 50s on the mornings of 07/02 and 07/03. Lantus 10 units at night discontinued with no further episodes of hypoglycemia. Okay to continue sliding scale with meals as needed. Continue home gabapentin. 5. Relative hypotension in setting of history of hypertension/hyperlipidemia/nonobstructive CAD ? Patient with hypotension on admit despite being off all home blood pressure medications. Presume secondary to heart failure and aortic valve issues as noted above. Blood pressure much improved. Treating with regimen as above and okay to continue midodrine 10 mg 3 times daily at this time as well. 6. Tobacco abuse ? Continue nicotine patch while inpatient. Discussed cessation on discharge. Chronic medical conditions: ? History of alcohol abuse: Continue cessation on discharge. Continue p.o. thiamine and folate. ? History of sick sinus syndrome s/p pacemaker placement ? History of thoracic aortic aneurysm with dissection s/p surgical repair ? History of heroin abuse: Remote, has been clean for approximately 10 years. ? GERD: Continue home PPI. DVT prophylaxis: Lovenox CODE STATUS: Full code, verified Expected disposition: Home, 1 to 2 days Total clinical time spent by myself addressing the patient's medical issues, reviewing all the data, and collaborating with patient's care team: 35 minutes. Charges/Coding Visit Charges Inpatient E&M: 70395 Subs Hosp L2
[2024-07-05] MEDS: Metoprolol(XL)Succ 25 MG Tablet 12.5 MG PO (11:51)
[2024-07-05] MEDS: Ferrous Sulfate 325 MG Tablet PO (11:52)
[2024-07-05 12:08] LABS: Giardia Lamblia, Stool EIA Negative (Negative)
[2024-07-05 12:20] LABS: Bedside Glucose 147 mg/dL (74-106)
[2024-07-05 13:08] LABS: Calprotectin, Stool 91 ug/g (0-120)
[2024-07-05 16:09] LABS: Anti-Mitochondrial AB <20.0 Units (0.0-20.0); Anti-Smooth Muscle ABS 2 Units (0-19)
[2024-07-05 16:44] LABS: Bedside Glucose 181 mg/dL (74-106)
[2024-07-05] MEDS: MELATONIN 3 MG TABLET PO (21:01)
[2024-07-05 22:10] LABS: Bedside Glucose 108 mg/dL (74-106)
[2024-07-06 03:01] VITALS: PULSE 60
[2024-07-06 03:02] VITALS: BP 104/71; PULSE 60; RESP 16; TEMP 36.8; O2SAT 95
[2024-07-06 04:52] VITALS: BMI 20.4
[2024-07-06 04:58] LABS: Hematocrit 25.1 % (40-54); Hemoglobin 8.3 g/dL (13.0-16.5); Mean Corp Hgb Conc 33.1 g/dL (32-36); Mean Corpuscular Hgb 36.2 pg (27.0-32.0); Mean Corpuscular Volume 109.6 fL (80-94); Mean Platelet Vol. 11.2 fl (6.2-12.0); POSITIVE MORPHOLOGY YES; Platelet Count 127 K/mm3 (150-450); RBC Distribution Width CV 17.2 % (11.6-14.6); RBC Distribution Width SD 68.8 fl (35.1-43.9); Red Blood Count 2.29 M/mm3 (4.6-6.2); White Blood Count 3.9 K/mm3 (4.4-11.0)
[2024-07-06 05:17] LABS: Scan Indicated on CBC? Y/N YES- FLAGS NOTED
[2024-07-06 05:20] LABS: Anion Gap 6 (5-15); BUN 22 mg/dL (4-19); BUN/Creat Ratio 14.9 RATIO (10-20); Calcium,Total 7.8 mg/dL (7.6-11.0); Carbon Dioxide 26.4 mmol/L (21.0-32.0); Chloride 102 mmol/L (98-108); Creatinine, Serum 1.49 mg/dL (0.70-1.20); EST Glomerular Filtration Rate 53 (>60); Glucose 145 mg/dL (70-99); Potassium 5.1 mmol/L (3.3-5.1); Sodium Level 135 mmol/L (133-145)
[2024-07-06] MEDS: Dicyclomine 10 MG Capsule PO ×2 (05:20→11:06)
[2024-07-06] MEDS: traMADol 50 MG Tablet PO (05:20)
[2024-07-06] MEDS: 0.9% Saline Lock 10 ML Syringe IV (05:21)
[2024-07-06 08:28] VITALS: BP 131/80; PULSE 60; RESP 16; TEMP 36.6; O2SAT 94
[2024-07-06] MEDS: Ciprofloxacin 0.3% 2.5ml Bottle 1 DRP RIGHT EYE (08:32)
[2024-07-06] MEDS: Lactobacillis Acidophilus 2 CAP PO (08:32)
[2024-07-06 08:33] VITALS: PULSE 60
[2024-07-06] MEDS: Pantoprazole Sodium 40 MG Tablet PO (08:33)
[2024-07-06] MEDS: Multivitamins,Therapeutic Tablet 1 TABLET PO (08:33)
[2024-07-06] MEDS: Metoprolol(XL)Succ 25 MG Tablet 12.5 MG PO (08:33)
[2024-07-06] MEDS: Furosemide 20 MG Tablet PO (08:33)
[2024-07-06] MEDS: Empagliflozin 10 MG Tablet PO (08:34)
[2024-07-06] MEDS: Folic Acid 1 MG Tablet PO (08:34)
[2024-07-06] MEDS: Thiamine Hydrochloride 100 MG Tablet PO (08:34)
[2024-07-06] MEDS: Enoxaparin 40 MG/0.4 ML Syringe SC (08:34)
[2024-07-06] MEDS: Creon 24,000 unit DR Capsule 1 CAP PO ×2 (08:34→11:05)
[2024-07-06] MEDS: Atorvastatin Calcium 10 MG Tablet PO (08:34)
[2024-07-06] MEDS: Midodrine HCl 5 MG Tablet 10 MG PO ×2 (08:35→11:05)
[2024-07-06] MEDS: Gabapentin 300 MG Capsule PO (08:41)
[2024-07-06] MEDS: Spironolactone 25 MG Tablet PO (08:51)
--- NOTE | 2024-07-06 10:37 | DCINST_ITS ---
Discharge Instructions Diet Discharge Diet: 8 Cup Fluid Restriction and 2000 mg Sodium Diet DC O2, CPAP, BIPAP needs Home O2 Discharge instructions: No Dressing / Incision Discharge Activity: No Restrictions Follow Up Care Test Results: Test results from this visit will be discussed in further detail at your follow- up appointment, if applicable. Discharge Plan Admission Admit Date/Time: 06/30/24 19:47 Primary Reason for Your Visit: Abdominal pain Attending Provider: Chris Aragon Primary Care Provider: Marianna Shine NP Consulting Providers: Conrado Pro; Melonie De La Rosa; Yaneli Carbone Discharge Orders/Prescriptions Prescriptions: No Action atorvastatin 10 mg tablet 10 mg PO DAILY hydralazine 25 mg tablet 25 mg PO TID dapagliflozin propanediol [Farxiga] 10 mg Tablet 10 mg PO DAILY multivitamin Tablet 1 tab PO DAILY insulin glargine [Lantus Solostar U-100 Insulin] 100 unit/mL (3 mL) insulin pen 5 unit subcut 1200 Patient Comments: pt stated he has not taken lantus for several days gabapentin 300 mg Capsule 300 mg PO DAILY metformin 500 mg tablet extended release 24 hr 500 mg PO BID Patient Comments: PT STATES THEY TAKE THIS ONCE DAILY. pantoprazole 40 mg tablet,delayed release (DR/EC) 40 mg PO BID Qty: 60 0RF Creon 24,000-76,000 -120,000 unit Capsule,Delayed Release(Dr/Ec) 1 cap PO TIDCM Qty: 90 1RF tramadol 50 mg tablet 50 mg PO Q8H PRN (Reason: pain) Qty: 9 0RF thiamine HCl (vitamin B1) [Vitamin B-1] 100 mg Tablet 100 mg PO DAILYCM Qty: 0 0RF L.acidoph,saliva-B.bif-S.therm 175 mg Capsule 2 cap PO BID Qty: 0 0RF folic acid 1 mg Tablet 1 mg PO DAILY@0800 Qty: 0 0RF insulin lispro [Humalog KwikPen Insulin] 100 unit/mL Insulin Pen See Protocol subcut ACHS Qty: 0 0RF Protocol: 4. Sliding Scale Insulin High-Med Dosing Condition: 150-199 mg/dl = 2 units Condition: 200-259 mg/dl = 4 units Condition: 260-324 mg/dl = 6 units Condition: 325-374 mg/dl = 8 units Condition: 375-409 mg/dl = 10 units Condition: 410-449 mg/dl = 11 units Condition: Greater than 449 call physician Protocol Text: - Use for Total Daily Dose of Insulin 56-80 units - Patient who are insulin resistant or septic HIGH MEDIUM DOSING ALGORITHM furosemide 40 mg tablet 40 mg PO DAILY Qty: 30 0RF spironolactone 25 mg tablet 12.5 mg PO DAILY Qty: 30 0RF Patient Comments: Reports he hasn't started taking 06/30/2024 Rx Instructions: Hold if serum potassium more than 5.1. ferrous sulfate [FeroSul] 325 mg (65 mg iron) tablet 325 mg PO DAILY metoprolol tartrate 50 mg tablet 50 mg PO BID ramipril 10 mg capsule 10 mg PO DAILY Referrals / Follow Up: Marianna Shine NP, ASSOCIATE BUYER-[employer] [Primary Care Provider] -
--- NOTE | 2024-07-06 10:38 | DS.PCM_ITS ---
Providers Date of Admission: 06/30/24 Date of Discharge: 07/06/24 Primary Care Physician: YADIRA Wilde Consultations 07/02/24 11:50 Consult: Gastroenterology Routine Consulting Provider: [facility] Reason for Consult: PKTY- LIVER DZ EMERGENT Consult: No Notified: Yes Date Notified: 07/02/24 Time Notified: 11:53 Method of Notification: Text 07/03/24 14:45 Consult: Cardiology Routine Consulting Provider: Yaneli Carbone Reason for Consult: new onset HFrEF, mod to severe bioprosthetic AV stenosis EMERGENT Consult: No Notified: Yes Date Notified: 07/03/24 Time Notified: 14:45 Method of Notification: Verbal Reason For Visit: PLEURAL EFFUSIONS AND HYPOXIA WITH WORSENING Diagnosis Discharge Diagnosis (1) Acute HFrEF (heart failure with reduced ejection fraction): Status: Acute Code(s): I50.21 - Acute systolic (congestive) heart failure (2) Abdominal ascites: Status: Acute Code(s): R18.8 - Other ascites Medications at Discharge Home Medications atorvastatin 10 mg tablet 10 mg PO DAILY CHOLESTEROL 10/17/20 dapagliflozin propanediol 10 mg tablet (Farxiga) 10 mg PO DAILY DIABETES 09/30/21 multivitamin 1 tab PO DAILY SUPPLEMENT 11/11/21 gabapentin 300 mg capsule 300 mg PO DAILY NEUROPATHY 11/14/22 metformin 500 mg tablet,extended release 24 hr 500 mg PO BID DIABETES 11/15/22 L.acidophil,salivari-Bifido bifidum-Strep thermoph 175 mg capsule 2 cap PO BID #0 caps 05/20/23 folic acid 1 mg tablet 1 mg PO DAILY@0800 supplement #0 tabs 05/20/23 insulin lispro 100 unit/mL subcutaneous pen (Humalog KwikPen (U-100) Insulin) See Protocol subcut ACHS #0 mL 05/20/23 thiamine HCl (vitamin B1) 100 mg tablet (Vitamin B-1) 100 mg PO DAILYCM vitamin #0 tabs 05/20/23 pantoprazole 40 mg tablet,delayed release 40 mg PO BID reflux #60 tabs 06/27/23 ymoppq-esedwewa-ykbdiai 24,000-76,000-120,000 unit capsule,delayed rel (Creon) 1 cap PO TIDCM #90 caps 06/28/24 ferrous sulfate 325 mg (65 mg iron) tablet (FeroSul) 325 mg PO DAILY 06/30/24 furosemide 20 mg tablet 20 mg PO DAILY 30 days #30 tabs 07/06/24 metoprolol succinate 25 mg tablet,extended release 24 hr 12.5 mg (1/2 x 25 mg) PO DAILY 30 days #15 tabs 07/06/24 spironolactone 25 mg tablet 25 mg PO DAILY 30 days #30 tabs 07/06/24 tramadol 50 mg tablet 50 mg PO Q8H PRN pain 3 days #9 tabs 07/06/24 Hospital Course Operations None Procedures EKG, Paracentesis, Transthoracic echo and - (Chest x-ray, CT abdomen pelvis with IV contrast) Summary of Care Provided Minutes Spent on Discharge: 35 Hospital Course: Patient is a 63-year-old male who presented to [facility] ED on 06/30/2024 with worsening abdominal pain and distention. Hospital course as noted below. Patient discharged home in stable condition on 07/06. 1. 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 Cardiology followed. History of bioprosthetic valve replacement in 2016 with mechanical valve replacement prior to that. 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 Chest x-ray on admit with cardiomegaly and moderate bilateral pleural effusions noted. BNP very elevated at 26,000. Required supplemental oxygen on admit, now weaned back to nasal cannula at rest. Per cardiology, suspect valve issue as below along with medication nonadherence are primary contributors to heart failure. Okay to treat medically at this time with plan for close outpatient follow-up for possible ALBERT/left heart cath/right heart cath. Developed mild MALIK on 07/05, IV Lasix discontinued. Will discharge home on the following regimen: Toprol 12.5 mg daily, Lasix 20 mg daily, spironolactone 25 mg daily and Farxiga 10 mg daily. Will need close outpatient follow-up with cardiology. Recommend repeat BMP in 5 to 7 days to reevaluate kidney function. 2. Abdominal ascites, chronic abdominal pain with chronic alcoholic pancreatitis ? GI followed. S/p paracentesis on 07/01 with 1700mL fluid removed. Had prior paracentesis done with transudative fluid so no paracentesis fluid studies were sent this time. No history of alcohol abuse as below and findings of ascites and thrombocytopenia could point to cirrhosis. However, liver appearance on CT not consistent with cirrhosis, no splenomegaly on CT and no varices on recent EGD. Suspect abdominal ascites are in part secondary to heart failure as noted above. Per GI, have concern for possible pancreatic leak contributing to ascites in setting of chronic pancreatitis. Large lab workup sent, will follow- up results in outpatient setting as they become available. 3. Chronic macrocytic anemia, chronic thrombocytopenia ? Hemoglobin stable at baseline around 8. Platelet count stable at baseline 100-130. 4. 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 Patient with blood glucose values in the 50s on the mornings of 07/02 and 07/03. Lantus 10 units at night discontinued with no further episodes of hypoglycemia. Will discontinue home Lantus 5 units daily. Okay to continue home metformin and Humalog sliding scale as needed with meals. Continue home gabapentin. 5. Relative hypotension in setting of history of hypertension/hyperlipidemia/nonobstructive CAD ? Patient with hypotension on admit despite being off all home blood pressure medications. Presume secondary to heart failure and aortic valve issues as noted above. Blood pressure remained stable around the low 100s systolic. Given midodrine for a short period of time while inpatient, will not continue this on discharge. New home regimen as noted above. Continue home statin. 6. Tobacco abuse ? Continue nicotine patch while inpatient. Discussed cessation on discharge. Chronic medical conditions: ? History of alcohol abuse: Continue cessation on discharge. Continue p.o. thiamine and folate. ? History of sick sinus syndrome s/p pacemaker placement ? History of thoracic aortic aneurysm with dissection s/p surgical repair ? History of heroin abuse: Remote, has been clean for approximately 10 years. ? GERD: Continue home PPI. Total clinical time spent by myself addressing the patient's medical issues, reviewing all the data, and collaborating with patient's care team: 35 minutes. Physical Exam Const alert, oriented x3, no apparent distress and average body habitus Constitutional Narrative: Upper middle-aged male, appears older than stated age, thin and chronically ill- appearing, mildly fatigued appearing but improved from admission, otherwise laying back comfortably in bed in no acute distress. General Appearance: cooperative and comfortable HEENT normocephalic, head/scalp atraumatic, hearing grossly normal bilaterally, nasal mucous membranes and turbinates normal and moist oral mucous membranes Eyes PERRL, EOMs intact bilaterally and conjunctivae normal Neck full ROM Chest inspection of chest normal Resp normal respiratory effort, normal air movement, no use of accessory muscles and clear to auscultation bilaterally Cardio regular rate, regular rhythm and peripheral pulses 2+ throughout Cardio Narrative: Systolic murmur noted. GI GI Narrative: Mild abdominal distention with very mild tenderness to palpation in lower abdomen. Abdomen otherwise soft with normoactive bowel sounds. Improved from admission. Back/Spine normal ROM Extremity normal to inspection and full ROM Skin no rashes or lesions noted Psych mental status grossly normal Weight / BMI Weight Weight: 66.4 kg Body Mass Index (BMI) 20.4 ABG / Lab / Microbiology Data 07/06/24 04:37 07/06/24 04:37 Laboratory: Laboratory Results - last 24 hr 07/03/24 09:37: Stool Calprotectin 91, Stl Giardia Antigen Negative, Miscellaneous Test 2 COMMENT 07/04/24 04:14: RAMANA-1 Antibody <0.2, SS-A/Ro IgG Antibody < 0.2, SS-B/La IgG Antibody < 0.2, Sm (Khalil) Antibody <0.2, RERECORDING MIXER Antibody <0.2, Scl-70 Scleroderma Ab <0.2, Double Strand DNA Ab <1, Antichromatin Antibodies <0.2, Centromere B Antibody <0.2, Anti-Mitochondrial Ab <20.0, Anti-Smooth Muscle Ab 2 07/05/24 11:48: POC Glucose 147 H 07/05/24 16:12: POC Glucose 181 H 07/05/24 21:06: POC Glucose 108 H 07/06/24 04:37: WBC 3.9 L, RBC 2.29 L, Hgb 8.3 L, Hct 25.1 L, MCV 109.6 H, MCH 36.2 H, MCHC 33.1, RDW Std Deviation 68.8 H, RDW Coeff of Kalpana 17.2 H, Plt Count 127 L, MPV 11.2, Sodium 135, Potassium 5.1, Chloride 102, Carbon Dioxide 26.4, Anion Gap 6, BUN 22 H, Creatinine 1.49 H, Estim Creat Clear Calc 48.90 L, Est GFR (MDRD) Non-Af 53 L, BUN/Creatinine Ratio 14.9, Glucose 145 H, Calcium 7.8 D/C Instructions DC O2, CPAP, BIPAP Needs Home O2 Discharge instructions: No Meaningful Use Info Meaningful Use Meaningful Use Diagnoses (Choose all that apply): None applicable Ischemic Stroke Statin Dosing Therapy Reference: STATIN DOSE THERAPY REFERENCE: * Patients > 75 years receive moderate or high dose statin therapy. * Patients 75 years or YOUNGER should receive HIGH intensity statin dose unless contraindicated. You will be required to document reason for non-treatment if statin daily dose does not meet guidelines. HIGH DOSE STATIN THERAPY DAILY Atorvastatin > than or = to 40 mg Rosuvastatin > than or = to 20 mg Amlodipine + Atorvastatin > than or = to 2.5/40 mg Ezetimibe + Simvastatin 10/80 mg Simvastatin 80mg Discharge Plan Admission Admit Date/Time: 06/30/24 19:47 Primary Reason for Your Visit: Abdominal pain Attending Provider: Chris Aragon Primary Care Provider: Marianna Shine PROFESSOR OF NURSING Consulting Providers: Conrado Pro; Melonie De La Rosa; Yaneli Carbone Instructions Additional Instructions / Restrictions: We have made several medication changes for you while here. Importantly, your blood pressure was running low here so several of your blood pressure medications were discontinued. Please see below for all of your medication changes. Follow-up with the heel seat sander soon to discuss further evaluation for your aortic valve. Discharge Orders/Prescriptions Prescriptions: New furosemide 20 mg Tablet 20 mg PO DAILY 30 Days Qty: 30 2RF metoprolol succinate 25 mg Tablet Extended Release 24 Hr 12.5 mg PO DAILY 30 Days Qty: 15 2RF spironolactone 25 mg Tablet 25 mg PO DAILY 30 Days Qty: 30 2RF Continued atorvastatin 10 mg tablet 10 mg PO DAILY dapagliflozin propanediol [Farxiga] 10 mg Tablet 10 mg PO DAILY multivitamin Tablet 1 tab PO DAILY gabapentin 300 mg Capsule 300 mg PO DAILY metformin 500 mg tablet extended release 24 hr 500 mg PO BID Patient Comments: PT STATES THEY TAKE THIS ONCE DAILY. pantoprazole 40 mg tablet,delayed release (DR/EC) 40 mg PO BID Qty: 60 0RF Creon 24,000-76,000 -120,000 unit Capsule,Delayed Release(Dr/Ec) 1 cap PO TIDCM Qty: 90 1RF thiamine HCl (vitamin B1) [Vitamin B-1] 100 mg Tablet 100 mg PO DAILYCM Qty: 0 0RF L.acidoph,saliva-B.bif-S.therm 175 mg Capsule 2 cap PO BID Qty: 0 0RF folic acid 1 mg Tablet 1 mg PO DAILY@0800 Qty: 0 0RF insulin lispro [Humalog KwikPen Insulin] 100 unit/mL Insulin Pen See Protocol subcut ACHS Qty: 0 0RF Protocol: 4. Sliding Scale Insulin High-Med Dosing Condition: 150-199 mg/dl = 2 units Condition: 200-259 mg/dl = 4 units Condition: 260-324 mg/dl = 6 units Condition: 325-374 mg/dl = 8 units Condition: 375-409 mg/dl = 10 units Condition: 410-449 mg/dl = 11 units Condition: Greater than 449 call physician Protocol Text: - Use for Total Daily Dose of Insulin 56-80 units - Patient who are insulin resistant or septic HIGH MEDIUM DOSING ALGORITHM ferrous sulfate [FeroSul] 325 mg (65 mg iron) tablet 325 mg PO DAILY tramadol 50 mg tablet 50 mg PO Q8H PRN (Reason: pain) 3 Days Qty: 9 0RF Discontinued hydralazine 25 mg tablet 25 mg PO TID insulin glargine [Lantus Solostar U-100 Insulin] 100 unit/mL (3 mL) insulin pen 5 unit subcut 1200 Patient Comments: pt stated he has not taken lantus for several days furosemide 40 mg tablet 40 mg PO DAILY Qty: 30 0RF spironolactone 25 mg tablet 12.5 mg PO DAILY Qty: 30 0RF Patient Comments: Reports he hasn't started taking 06/30/2024 Rx Instructions: Hold if serum potassium more than 5.1. metoprolol tartrate 50 mg tablet 50 mg PO BID ramipril 10 mg capsule 10 mg PO DAILY Referrals / Follow Up: Marianna Shine PROFESSOR OF NURSING, PROFESSOR OF NURSING-C [Primary Care Provider] - Disposition Disposition (needs filled in before D/C Order can be placed): Home, Self Care Charges/Coding Visit Charges Inpatient E&M: 21200 Disch Hosp >30min
[2024-07-06] MEDS: Ferrous Sulfate 325 MG Tablet PO (11:06)
[2024-07-06] MEDS: Insulin Lispro 100 UNIT/ML INSULN.PEN SC (11:08)
--- NOTE | 2024-07-06 11:08 | CASEMGMT ---
Pt has an order for DC placed. Dr. Aragon states that he is agreeable with the pt discharging home with OP therapy. RN CM to the pt room at this time. Pt states that his ride is on their way. Pt states that he still plans to attend OP therapy through . Pt is requesting transportation to be set up for him for OP Tx. Pt educated about [facility]. Pt states that he can get in and out of the van independently. Pt states that he does not have a preference on the time of day for the appts as long as transportation can be provided. [facility] to [facility] and [facility] states that they still have the outstanding OP therapy order and that they will contact [facility] as well as the pt with the scheduled appt time. Pt updated and states understanding. Pt denies any further DC needs.
[2024-07-06 11:41] VITALS: BP 142/81; PULSE 60; RESP 16; TEMP 36.4; O2SAT 93
[2024-07-06 11:52] LABS: Bedside Glucose 213 mg/dL (74-106)
[2024-07-07 04:07] LABS: Albumin 2.1 g/dL (2.9-4.4); Alpha-1-Globulins 0.2 g/dL (0.0-0.4); Alpha-2-Globulins 0.4 g/dL (0.4-1.0); Cytoplasmic Ab (C-ANCA) <1:20 titer (Neg:<1:20); Deamidated Gliadin IgA 2 units (0-19); Deamidated Gliadin IgG <1 units (0-19); Endomysial Antibody IgA Negative (Negative); Gamma Globulin 0.7 g/dL (0.4-1.8); Immunoglobulin A 318 mg/dL (61-437); Immunoglobulin G 839 mg/dL (603-1613); Immunoglobulin M 48 mg/dL (20-172); PROEL- TOTAL PROTEIN 4.1 g/dL (6.0-8.5); Perinuclear Ab (P-ANCA) <1:20 titer (Neg:<1:20); QNTFERON TB Mitogen Value 2.42 IU/mL (.); QNTFERON TB Nil Value 0.04 IU/mL (.); QNTFERON TB1+ Ag Value 0.04 IU/mL (.); QNTFERON TB2+ Ag Value 0.03 IU/mL (.); QNTIFERON TB Positive Criteria Negative (Negative); t-Transglutaminase IgA <2 U/mL (0-3)
== END 2024-07-06 11:51 | disposition home or self-care (01) | DRG 280 ==
LOC: ED 19:12 → PCU 20:06
PROVIDERS: Internal Medicine; Internal Medicine Gastroenterology; Admitting Provider Internal Medicine; Emergency Provider Emergency Medicine; PCP Nurse Practitioner Family; Referring Provider Internal Medicine; Visit Provider Hospitalist
DX: K70.31 Alcoholic cirrhosis of liver with ascites (principal); I50.21 Acute systolic (congestive) heart failure; E87.20 Acidosis, unspecified; I24.89 Other forms of acute ischemic heart disease; K86.0 Alcohol-induced chronic pancreatitis; J90 Pleural effusion, not elsewhere classified; E11.22 Type 2 diabetes mellitus with diabetic chronic kidney disease; K76.6 Portal hypertension; I13.0 Hypertensive heart and chronic kidney disease with heart failure and stage 1 through stage 4 chronic kidney disease, or unspecified chronic kidney disease; D53.9 Nutritional anemia, unspecified; F10.10 Alcohol abuse, uncomplicated; I35.0 Nonrheumatic aortic (valve) stenosis; D69.6 Thrombocytopenia, unspecified; E11.40 Type 2 diabetes mellitus with diabetic neuropathy, unspecified; N17.9 Acute kidney failure, unspecified; K21.9 Gastro-esophageal reflux disease without esophagitis; K76.0 Fatty (change of) liver, not elsewhere classified; K52.9 Noninfective gastroenteritis and colitis, unspecified; Z79.4 Long term (current) use of insulin; E78.00 Pure hypercholesterolemia, unspecified; H10.31 Unspecified acute conjunctivitis, right eye; I25.10 Atherosclerotic heart disease of native coronary artery without angina pectoris; N18.2 Chronic kidney disease, stage 2 (mild); F17.210 Nicotine dependence, cigarettes, uncomplicated; E11.65 Type 2 diabetes mellitus with hyperglycemia; T82.857A Stenosis of other cardiac prosthetic devices, implants and grafts, initial encounter; Z79.84 Long term (current) use of oral hypoglycemic drugs; R01.1 Cardiac murmur, unspecified; Z82.49 Family history of ischemic heart disease and other diseases of the circulatory system; F41.1 Generalized anxiety disorder; R09.02 Hypoxemia; Z95.3 Presence of xenogenic heart valve; Y71.2 Prosthetic and other implants, materials and accessory cardiovascular devices associated with adverse incidents
CPT/HCPCS: 71045; 74177; 80048; 80053; 80076; 81001; 82077; 82784; 82803; 82962; 83516; 83605; 83615; 83690; 83735; 83880; 83993; 84100; 84165; 84484; 85025; 85027; 85610; 85652; 85730; 86037; 86140; 86225; 86235; 86255; 86334; 86335; 86480; 86703; 87329; 93306; 94640; 94667; 94668; 97116; 97161; 97530; 97802; 99252; 99284; P9047; Q9967; A4216; G0463; J1938; J2405

== ENCOUNTER 2024-07-11 11:26 | Inpatient (IN) | payer MEDICAID, SELFPAY ==
[2024-07-11] VITALS (8 sets, daily range): BP systolic 137–151; BP diastolic 92–110; PULSE 64–104; RESP 16–19; TEMP 36.7–37; O2SAT 94–99; BMI 20.2
--- NOTE | 2024-07-11 11:52 | CT_ITS ---
EXAM: CT Abdomen and Pelvis With Intravenous Contrast CLINICAL INDICATION: RUQ PAIN, EPIGASTRIC TECHNIQUE: Axial computed tomography images of the abdomen and pelvis with intravenous contrast. This CT exam was performed using one or more of the following dose reduction techniques: automated exposure control, adjustment of the mA and/or kV according to patient size, and/or use of iterative reconstruction technique. COMPARISON: No relevant prior studies available. FINDINGS: LUNG BASES: See below. PLEURAL SPACE: Bilateral pleural effusion with compressive atelectasis. ABDOMEN: LIVER: Hepatomegaly with fatty infiltration. GALLBLADDER AND BILE DUCTS: Unremarkable. No calcified stones. No ductal dilation. PANCREAS: Unremarkable. No mass. No ductal dilation. SPLEEN: Unremarkable. No splenomegaly. ADRENALS: Unremarkable. No mass. KIDNEYS AND URETERS: Unremarkable. No solid mass. No hydronephrosis. STOMACH AND BOWEL: Multiple distended small bowel loops with differential air- fluid levels measuring up to 3.4 cm, concerning for at least a partial small bowel obstruction. This is new since the prior exam. Previously described inflammation of the cecum as improved impression. Fecal retention in the colon consistent with constipation. No mucosal thickening. PELVIS: APPENDIX: No findings to suggest acute appendicitis. BLADDER: Unremarkable. No mass. REPRODUCTIVE: Unremarkable as visualized. ABDOMEN and PELVIS: INTRAPERITONEAL SPACE: Unremarkable. No significant fluid collection. No pneumoperitoneum. BONES/JOINTS: No acute fracture. No dislocation. SOFT TISSUES: Inguinal hernias, bilaterally. Umbilical hernia containing fat. VASCULATURE: Scattered calcified atherosclerotic disease of the aorta measuring up to 2.2 cm. No abdominal aortic aneurysm. LYMPH NODES: Unremarkable. No enlarged lymph nodes. CT/Abdomen/Pelvis W IV Cont ONLY IMPRESSION: 1. Hepatomegaly with fatty infiltration. 2. Fecal retention in the colon consistent with constipation. 3. Umbilical hernia containing fat. 4. Bilateral pleural effusion with compressive atelectasis. Reading Location: [facility]
--- NOTE | 2024-07-11 11:53 | EX.ED.DYSGE1 ---
HPI History of Present Illness Chief Complaint: Mental Health Narrative Narrative: Patient is a 63-year-old male with past medical history of thrombocytopenia, seizures, anxiety, diabetes, AAA, right bundle branch block, history of alcohol abuse states that he does not drink in a very long time,, hypertension who presented to the emergency department via counselor that checked on him earlier today. He told the counselor that he does not want to live anymore but denies suicidal homicidal ideations. Patient states he has no plan to hurt himself he just does not know what is going on with his head right now he states that he feels like he is in a bad spot. He states that he does have a headache but denies any head injuries or trauma is requesting medication for this. Patient states that he has also been very nauseous lately. [facility] Medical History Thrombocytopenia Chronic pancreatitis Macrocytosis associated with alcohol Ascites due to alcoholic cirrhosis Chronic diarrhea Chronic alcohol abuse Abdominal ascites MALIK (acute kidney injury) Seizures Alcoholic hepatitis Chronic pancreatitis Gastric wall thickening Alcohol dependence Anxiety Diabetes Pancreatitis Myocardial infarct Pacemaker AAA (abdominal aortic aneurysm) Admitted to alcohol detoxification center Alcohol abuse Hx of hypercholesterolemia History of diabetes mellitus Alcohol dependence Substance abuse Smoker Alcoholism Right bundle branch block (RBBB) Non-sustained ventricular tachycardia Thoracic aortic aneurysm SVT (supraventricular tachycardia) Ascending aortic dissection (~2005) Pure hypercholesterolemia Adrenal nodule Hiatal hernia Left carotid bruit Cardiac pacemaker in situ (~06/2016) Essential hypertension Pacemaker Sick sinus syndrome Tobacco use HTN (hypertension) Diabetes mellitus, type II Home Medications ?Medication ?Instructions ?Recorded ?Last Taken ?Type atorvastatin 10 mg tablet 10 mg PO DAILY CHOLESTEROL 10/17/20 04/19/23 History dapagliflozin propanediol 10 mg 10 mg PO DAILY DIABETES 09/30/21 04/19/23 History tablet (Farxiga) multivitamin 1 tab PO DAILY SUPPLEMENT 11/11/21 11/10/21 History gabapentin 300 mg capsule 300 mg PO DAILY NEUROPATHY 11/14/22 Unknown History metformin 500 mg tablet,extended 500 mg PO BID DIABETES 11/15/22 04/19/23 History release 24 hr L.acidophil,salivari-Bifido 2 cap PO BID #0 caps 05/20/23 Unknown Rx bifidum-Strep thermoph 175 mg capsule folic acid 1 mg tablet 1 mg PO DAILY@0800 supplement #0 04/11/24 Unknown Rx tabs insulin lispro 100 unit/mL See Protocol subcut ACHS diabetes 05/20/23 Unknown Rx subcutaneous pen (Humalog KwikPen #0 mL (U-100) Insulin) thiamine HCl (vitamin B1) 100 mg 100 mg PO DAILYCM vitamin #0 tabs 05/20/23 Unknown Rx tablet (Vitamin B-1) pantoprazole 40 mg tablet,delayed 40 mg PO BID reflux #60 tabs 06/27/23 Unknown Rx release pdoqho-vonggwpy-hpjylnl 1 cap PO TIDCM #90 caps 06/28/24 Unknown Rx 24,000-76,000-120,000 unit capsule,delayed rel (Creon) ferrous sulfate 325 mg (65 mg 325 mg PO DAILY supplement 06/30/24 Unknown History iron) tablet (FeroSul) furosemide 20 mg tablet 20 mg PO DAILY 30 days #30 tabs 07/06/24 Unknown Rx metoprolol succinate 25 mg 12.5 mg (1/2 x 25 mg) PO DAILY 30 07/06/24 Unknown Rx tablet,extended release 24 hr days #15 tabs spironolactone 25 mg tablet 25 mg PO DAILY 30 days #30 tabs 07/06/24 Unknown Rx tramadol 50 mg tablet 50 mg PO Q8H PRN pain 3 days #9 07/06/24 Unknown Rx tabs Allergy/AdvReac Type Severity Reaction Status Date / Time No Known Allergies Allergy Verified 07/11/24 11:38 Family History Father CAD (coronary artery disease) Mother Dementia Surgical History H/O cardiac catheterization History of aortic aneurysm repair (~2016) History of cataract surgery History of hernia repair History of aortic valve replacement with bioprosthetic valve (~2016) H/O aortic valve replacement Social History household members: family housing: house Smoking Status: Current every day smoker tobacco type: cigarettes alcohol intake: current alcohol intake frequency: 0-2 drinks per day details: Reports currently ~ 2 tall boys daily. substance use type: former substance user caffeine: Yes Type: coffee Number of servings: 3 ROS ROS ED ROS Narrative Constitutional: Denies fevers, chills, headaches Eyes: Denies change in vision double vision blurry vision Cardiovascular: Denies chest pain Respiratory: Denies coughing wheezing shortness of breath Abdomen: Complains of nausea as noted above denies vomiting or diarrhea denies any abdominal pain : Denies any urinary symptoms Neurological: Denies numbness, weakness, tingling Musculoskeletal: Denies back pain Skin: Denies rashes or lesions EXAM Physical Exam Narrative Exam Narrative: General: Patient lying in bed rest comfortably did not appear to be acute distress Head: Atraumatic, normocephalic Eyes: PERRL bilaterally, EOMI bilaterally, no conjunctival injection noted Neck: Soft, supple, trachea midline Cardiovascular: Regular rate and rhythm Respiratory: Clear to auscultation bilaterally no wheezing noted Abdomen: Soft, nondistended, tenderness to palpation in the right upper quadrant in the epigastric region no rebound or guarding on exam Extremities: +5/5 strength noted in the bilateral upper and lower extremities Neurological: Patient following commands knew that he was at [facility] the year is 2024 Skin: Warm, dry, intact no rashes or lesions noted Const Vital Signs: 07/11/24 11:28 07/11/24 13:27 07/11/24 13:51 Temperature 98.1 F 98.6 F Temperature Source Oral Pulse Rate 64 89 89 Respiratory Rate 19 H 18 18 Blood Pressure 145/110 H 140/100 H 140/100 H Blood Pressure Mean 121 113 113 Pulse Ox 97 99 99 Oxygen Delivery Method Room Air MDM MDM MDM Narrative Medical decision making narrative: Patient is a 63-year-old male who presented to the emergency department the chief complaint of being in a bad place in his head he will have a workup performed here on the differential diagnose includes but not limited to electrolyte abnormalities, pancreatitis, cholecystitis, depression, anxiety. Once workup is obtained reviewed he will be reevaluated. Patient be given a gram of Tylenol and Zofran. Patient CBC was reviewed showed no evidence leukocytosis white blood count normal 5.6, hemogram 0.3, platelet count was 155. Patient sodium is 140, potassium normal 4.6, creatinine is 1.15. Patient's AST and ALT are 53 and 23 respectively, lipase of 6. Patient's urinalysis reviewed showed no evidence of infection. Patient's CT abdomen pelvis with IV contrast showed hepatomegaly with fatty infiltration. He has a partial small bowel obstruction with persistent nausea and abdominal pain, fecal retention in the colon consistent with constipation. Umbilical hernia containing fat bilateral pleural effusions with compressive atelectasis. Will discuss case with hospitalist for admission for his partial bowel obstruction, nausea and abdominal pain. Patient will also require psychiatric evaluation once medically cleared Discussed case with hospitalist Dr. De La Rosa who is recommending discussion with Dr. Fontanez Discussed case with Dr. Fontanez who reviewed the CT abdomen pelvis and states that it is hard to fully delineate whether this is a ileus versus partial bowel obstruction. I reach back out to Dr. De La Rosa who will accept patient for admission. Patient is still complaining of headache therefore he will be given Reglan for his headache. He is agreeable this plan all question concerns answered Lab Data Labs: Laboratory Results - last 24 hr 07/11/24 07/11/24 11:53 12:06 WBC 5.6 RBC 2.61 L Hgb 9.3 L Hct 29.1 L MCV 111.5 H MCH 35.6 H MCHC 32.0 RDW Std Deviation 66.4 H RDW Coeff of Kalpana 16.1 H Plt Count 155 MPV 11.0 Immature Gran % (Auto) 0.500 Neut % (Auto) 74.9 H Lymph % (Auto) 15.4 L Drew % (Auto) 7.7 Eos % (Auto) 0.4 Baso % (Auto) 1.1 H Absolute Neuts (auto) 4.2 Absolute Lymphs (auto) 0.86 Nucleated RBC % 0 Platelet Estimate A Polychromasia RARE Anisocytosis 1+ Sodium 140 Potassium 4.6 Chloride 103 Carbon Dioxide 28.3 Anion Gap 8 BUN 10 Creatinine 1.15 Estim Creat Clear Calc 62.80 Est GFR (MDRD) Non-Af 72 BUN/Creatinine Ratio 8.9 L Glucose 137 H Calcium 8.3 Total Bilirubin 0.34 Direct Bilirubin 0.21 AST 53 H ALT 23 Alkaline Phosphatase 104 Total Protein 5.7 L Albumin 2.9 L Globulin 2.8 Lipase 6 L Urine Color Yellow Urine Clarity Clear Urine pH 8.0 Ur Specific [place] 1.010 Urine Protein 15 H Urine Glucose (UA) Normal Urine Ketones Negative Urine Occult Blood Negative Urine Nitrite Negative Urine Bilirubin Negative Urine Urobilinogen Normal Ur Leukocyte Esterase Negative Urine RBC 0 SEEN Urine WBC 0 SEEN Ur Squamous Epith Cells 0 SEEN Urine Bacteria 0 SEEN Urine Mucus 0 SEEN Urine Opiates Screen NEGATIVE U Buprenorphine Qual NEGATIVE Ur Oxycodone Screen NEGATIVE Urine Methadone Screen NEGATIVE Urine Fentanyl Screen NEGATIVE Ur Barbiturates Screen PRESUMPTIVE POSITIVE Ur Phencyclidine Scrn NEGATIVE Ur Amphetamines Screen NEGATIVE U Benzodiazepines Scrn NEGATIVE Urine Cocaine Screen NEGATIVE U Cannabinoids Screen NEGATIVE Ethyl Alcohol < 10.1 Radiography Diagnostic Testing: Clinical Impression(s) from Imaging Studies Abdomen/Pelvis CT 07/11/24 11:52 IMPRESSION: 1. Hepatomegaly with fatty infiltration. 2. Fecal retention in the colon consistent with constipation. 3. Umbilical hernia containing fat. 4. Bilateral pleural effusion with compressive atelectasis. Reading Location: [facility] Discharge Plan Triage Chief Complaint: Mental Health ED Provider: Perez Ribeiro Dx/Rx/DC Orders Clinical Impression: Partial bowel obstruction, Nausea, Abdominal pain, Headache Prescriptions: No Action atorvastatin 10 mg tablet 10 mg PO DAILY dapagliflozin propanediol [Farxiga] 10 mg Tablet 10 mg PO DAILY multivitamin Tablet 1 tab PO DAILY gabapentin 300 mg Capsule 300 mg PO DAILY metformin 500 mg tablet extended release 24 hr 500 mg PO BID Patient Comments: PT STATES THEY TAKE THIS ONCE DAILY. pantoprazole 40 mg tablet,delayed release (DR/EC) 40 mg PO BID Qty: 60 0RF Creon 24,000-76,000 -120,000 unit Capsule,Delayed Release(Dr/Ec) 1 cap PO TIDCM Qty: 90 1RF thiamine HCl (vitamin B1) [Vitamin B-1] 100 mg Tablet 100 mg PO DAILYCM Qty: 0 0RF L.acidoph,saliva-B.bif-S.therm 175 mg Capsule 2 cap PO BID Qty: 0 0RF folic acid 1 mg Tablet 1 mg PO DAILY@0800 Qty: 0 0RF insulin lispro [Humalog KwikPen Insulin] 100 unit/mL Insulin Pen See Protocol subcut ACHS Qty: 0 0RF Protocol: 4. Sliding Scale Insulin High-Med Dosing Condition: 150-199 mg/dl = 2 units Condition: 200-259 mg/dl = 4 units Condition: 260-324 mg/dl = 6 units Condition: 325-374 mg/dl = 8 units Condition: 375-409 mg/dl = 10 units Condition: 410-449 mg/dl = 11 units Condition: Greater than 449 call physician Protocol Text: - Use for Total Daily Dose of Insulin 56-80 units - Patient who are insulin resistant or septic HIGH MEDIUM DOSING ALGORITHM ferrous sulfate [FeroSul] 325 mg (65 mg iron) tablet 325 mg PO DAILY furosemide 20 mg Tablet 20 mg PO DAILY 30 Days Qty: 30 2RF metoprolol succinate 25 mg Tablet Extended Release 24 Hr 12.5 mg PO DAILY 30 Days Qty: 15 2RF spironolactone 25 mg Tablet 25 mg PO DAILY 30 Days Qty: 30 2RF tramadol 50 mg tablet 50 mg PO Q8H PRN (Reason: pain) 3 Days Qty: 9 0RF Primary Care Provider: Marianna Shine NP Referrals: Marianna Shine NP, BEHAVIOR INTERVENTIONIST-C [Primary Care Provider] - Print Language: Dominican Disposition Disposition: Acute Care [facility]
[2024-07-11 12:00] LABS: Bacteria 0 SEEN /hpf (None Seen); Mucous, Urine 0 SEEN /hpf (<or=2+); Red Blood Cells-Urine 0 SEEN /hpf (0-5); Squamous Epithelial Cells - UA 0 SEEN /hpf (0-5); White Blood Cells 0 SEEN /hpf (0-5)
[2024-07-11 12:05] LABS: Color, Urine Yellow (Yellow); Glucose, Dipstick Normal (Normal); Ketone-Dipstick Negative (Negative); Leukocyte Esterase-Dipstick Negative /ul (Negative); Nitrite-Dipstick Negative (Negative); Occult Blood-Urine Negative /ul (Negative); Protein-Dipstick 15 mg/dl (Negative); Urine Bilirubin Dipstick Negative (Negative); Urine Clarity Clear (Clear); Urine Urobilinogen Normal (Normal)
[2024-07-11] MEDS: 0.9% Normal Saline (1000mL) 1,000 ML 999 ML IV (12:09)
[2024-07-11] MEDS: Acetaminophen 500 MG Tablet 1000 MG PO (12:09)
[2024-07-11] MEDS: Ondansetron 4 MG/2 ML Vial IV (12:09)
[2024-07-11 12:20] LABS: Absolute Lymphocyte Count 0.86 X10^3/uL (0.83-4.51); Absolute Neutrophil Count 4.2 X10^3/uL (2.0-7.7); Basophil# 0.06 X10^3/uL; Basophil% 1.1 % (0-1); Eosinophil# 0.02 X10^3/uL; Eosinophils% 0.4 % (0-5); Hematocrit 29.1 % (40-54); Hemoglobin 9.3 g/dL (13.0-16.5); Lymphocyte # 0.86 X10^3/ul (0.83-4.51); Lymphocyte % 15.4 % (19-41); Mean Corpuscular Hgb 35.6 pg (27.0-32.0); Mean Corpuscular Volume 111.5 fL (80-94); Monocyte# 0.43 X10^3/uL; Monocyte% 7.7 % (0-10); NRBC Flagged by Analyzer 0 % (0-5); Neutrophil # 4.17 X10^3/uL (2.7-7.7); Neutrophil % 74.9 % (47-70); POSITIVE MORPHOLOGY YES; Platelet Count 155 K/mm3 (150-450); RBC Distribution Width CV 16.1 % (11.6-14.6); RBC Distribution Width SD 66.4 fl (35.1-43.9); Red Blood Count 2.61 M/mm3 (4.6-6.2); White Blood Count 5.6 K/mm3 (4.4-11.0)
[2024-07-11 12:26] LABS: Differential Indicated SCAN CRITERIA MET
[2024-07-11 12:42] LABS: Alcohol, Blood (Medical)-Serum < 10.1 mg/dL (<=10.0); Lipase 6 U/L (13-75)
[2024-07-11 12:44] LABS: AST(SGOT) 53 U/L (<=37); Alanine Aminotransfer ALT/SGPT 23 U/L (<=46); Albumin, Serum 2.9 g/dL (3.4-4.8); Alkaline Phosphatase 104 U/L (40-129); Anion Gap 8 (5-15); BUN 10 mg/dL (4-19); BUN/Creat Ratio 8.9 RATIO (10-20); Bilirubin, Direct 0.21 mg/dL (0.00-0.30); Calcium,Total 8.3 mg/dL (7.6-11.0); Carbon Dioxide 28.3 mmol/L (21.0-32.0); Chloride 103 mmol/L (98-108); Creatinine, Serum 1.15 mg/dL (0.70-1.20); EST Glomerular Filtration Rate 72 (>60); Globulin 2.8 g/dL (2.2-4.2); Glucose 137 mg/dL (70-99); Potassium 4.6 mmol/L (3.3-5.1); Protein, Total 5.7 g/dL (5.9-8.4); Sodium Level 140 mmol/L (133-145); Total Bilirubin 0.34 mg/dL (0.00-1.30)
[2024-07-11 12:50] LABS: Amphetamine Urine NEGATIVE (<1000 ng/mL); Barbiturate Urine PRESUMPTIVE POSITIVE (< 200 ng/mL); Benzodiazepine Urine NEGATIVE (< 200 ng/mL); Buprenorphine Urine NEGATIVE (< 200 ng/mL); Cocaine Urine NEGATIVE (< 300 ng/mL); Fentanyl, Urine NEGATIVE; Methadone Urine NEGATIVE (< 300 ng/mL); Opiates Urine NEGATIVE (< 300 ng/mL); Oxycodone, Urine NEGATIVE (< 100 ng/mL); PCP Urine NEGATIVE (< 25 ng/mL); THC Urine NEGATIVE (< 50 ng/mL)
[2024-07-11 13:02] LABS: Anisocytosis 1+; Platelet Estimate A (ADEQ); Polychromasia RARE
[2024-07-11] MEDS: Ketorolac 15 MG/ML Vial IV ×2 (13:19→23:07)
--- NOTE | 2024-07-11 14:05 | PCM.HP.STD ---
HPI - General General Date of Admission: 07/11/24 Date of Service: 07/11/24 Chief Complaint: Suicidal ideation/nausea vomiting HPI Narrative ANALILIA TALLEY, is a 63 M who presented to the emergency department at [facility] on 07/11/2024 with a chief complaint of suicidal ideation and nausea and vomiting. Patient has had multiple admissions with this being his third in the last 3 weeks. He has a history of alcoholic pancreatitis as well as cirrhosis and medical noncompliance. He states he has not been compliant with his medications since his discharge on the . He has not been drinking. He did have an appointment with the counselor today who checked on him. He told the counselor that he did not want to live anymore but denied any specific suicidal or homicidal ideations. He tells me he is just in a bad way. He states he has no plan to hurt himself. He has a headache without any previous trauma. He requests by name all tramadol or morphine for this. He stated that he has also been nauseated. He indicates his last bowel movement was on Wednesday or Wednesday. He has not been having good flatus and not been able to take much in by p.o. He does not appear to be markedly dehydrated on exam. Again, he reports has not been taking his medications as he was directed at discharge. Vital signs on presentation showed a temperature of 98.1, heart rate 64, respiratory rate 19, blood pressure 145/110 and pulse ox is 97% on room air. CBC shows a normal white count with an anemia that is stable having hemoglobin of 9.3. This platelet count has normalized. His chemistry panel is overall unremarkable other than a blood glucose of 137 and he is a known diabetic. AST shows mild elevation of 53 but ALT is normal and alk phos is normal. Bilirubin is normal. Lipase was 6. His UA is not suggestive of infection. A CT of the abdomen pelvis was done due to his ongoing nausea and decreased p.o. intake and demonstrated stable bilateral pleural effusions with compressive atelectasis, hepatomegaly with fatty liver, and multiple distended small bowel loops with differential air-fluid levels measuring up to 3.4 cm concerning for ileus versus partial small bowel obstruction, improving inflammation in the cecum and fecal retention in the colon consistent with constipation. The emergency department he was treated with IV fluids x 1 L, Tylenol, Toradol, Reglan x 1 dose and Zofran IV 4 mg x 1 dose. Given the finding of ileus versus small bowel obstruction on CT request for admission was made. The case was discussed with Dr. Fontanez prior to admission. [facility] Medical History Thrombocytopenia Chronic pancreatitis Macrocytosis associated with alcohol Ascites due to alcoholic cirrhosis Chronic diarrhea Chronic alcohol abuse Abdominal ascites MALIK (acute kidney injury) Seizures Alcoholic hepatitis Chronic pancreatitis Gastric wall thickening Alcohol dependence Anxiety Diabetes Pancreatitis Myocardial infarct Pacemaker AAA (abdominal aortic aneurysm) Admitted to alcohol detoxification center Alcohol abuse Hx of hypercholesterolemia History of diabetes mellitus Alcohol dependence Substance abuse Smoker Alcoholism Right bundle branch block (RBBB) Non-sustained ventricular tachycardia Thoracic aortic aneurysm SVT (supraventricular tachycardia) Ascending aortic dissection (~2005) Pure hypercholesterolemia Adrenal nodule Hiatal hernia Left carotid bruit Cardiac pacemaker in situ (~06/2016) Essential hypertension Pacemaker Sick sinus syndrome Tobacco use HTN (hypertension) Diabetes mellitus, type II Home Medications ?Medication ?Instructions ?Recorded ?Last Taken ?Type atorvastatin 10 mg tablet 10 mg PO DAILY CHOLESTEROL 10/17/20 04/19/23 History dapagliflozin propanediol 10 mg 10 mg PO DAILY DIABETES 09/30/21 04/19/23 History tablet (Farxiga) multivitamin 1 tab PO DAILY SUPPLEMENT 11/11/21 11/10/21 History gabapentin 300 mg capsule 300 mg PO DAILY NEUROPATHY 11/14/22 Unknown History metformin 500 mg tablet,extended 500 mg PO BID DIABETES 11/15/22 04/19/23 History release 24 hr L.acidophil,salivari-Bifido 2 cap PO BID #0 caps 05/20/23 Unknown Rx bifidum-Strep thermoph 175 mg capsule folic acid 1 mg tablet 1 mg PO DAILY@0800 supplement #0 05/20/23 Unknown Rx tabs insulin lispro 100 unit/mL See Protocol subcut ACHS diabetes 05/20/23 Unknown Rx subcutaneous pen (Humalog KwikPen #0 mL (U-100) Insulin) thiamine HCl (vitamin B1) 100 mg 100 mg PO DAILYCM vitamin #0 tabs 05/20/23 Unknown Rx tablet (Vitamin B-1) pantoprazole 40 mg tablet,delayed 40 mg PO BID reflux #60 tabs 06/27/23 Unknown Rx release cketau-uznqkgia-ozsumra 1 cap PO TIDCM #90 caps 06/28/24 Unknown Rx 24,000-76,000-120,000 unit capsule,delayed rel (Creon) ferrous sulfate 325 mg (65 mg 325 mg PO DAILY supplement 06/30/24 Unknown History iron) tablet (FeroSul) furosemide 20 mg tablet 20 mg PO DAILY 30 days #30 tabs 07/06/24 Unknown Rx metoprolol succinate 25 mg 12.5 mg (1/2 x 25 mg) PO DAILY 30 07/06/24 Unknown Rx tablet,extended release 24 hr days #15 tabs spironolactone 25 mg tablet 25 mg PO DAILY 30 days #30 tabs 07/06/24 Unknown Rx tramadol 50 mg tablet 50 mg PO Q8H PRN pain 3 days #9 07/06/24 Unknown Rx tabs Allergy/AdvReac Type Severity Reaction Status Date / Time No Known Allergies Allergy Verified 07/11/24 11:38 Family History Father CAD (coronary artery disease) Mother Dementia Surgical History H/O cardiac catheterization History of aortic aneurysm repair (~2016) History of cataract surgery History of hernia repair History of aortic valve replacement with bioprosthetic valve (~2016) H/O aortic valve replacement Social History household members: family housing: house Smoking Status: Current every day smoker tobacco type: cigarettes alcohol intake: current alcohol intake frequency: 0-2 drinks per day details: Reports currently ~ 2 tall boys daily. substance use type: former substance user caffeine: Yes Type: coffee Number of servings: 3 ROS Constitutional Constitutional: Denies anorexia, change in weight, chills, fatigue, fever(s), malaise, night sweats, weakness or other Eyes Eyes: Denies blurry vision, change in eye color, change in vision, discharge from eye(s), double vision, erythema, eye pain, loss of vision or other ENT HEENT: Denies abnormal hearing, dysphagia, ear pain, epistaxis, headache(s), hearing loss, nasal congestion, nasal discharge, post nasal drip, sinus pressure, sore throat or other Cardiovascular Cardiovascular: Denies chest pain, claudication, dyspnea on exertion, edema, lightheadedness, orthopnea, palpitations, paroxysmal nocturnal dyspnea, rapid heart rate, syncope or other Respiratory/Chest Respiratory/Chest: Denies cough, dyspnea, excessive phlegm production, hemoptysis, productive cough, shortness of breath at rest, shortness of breath with exertion, wheezing or other Gastrointestinal Gastrointestinal: Reports abdominal pain, constipation, nausea and other Details: No flatus Genitourinary Genitourinary: Denies burning urination, difficulty urinating, dysuria, hematuria, nocturia, urinary frequency, urinary hesitancy, urinary incontinence, urinary urgency or other Musculoskeletal Musculoskeletal: Reports back pain; Denies arthralgias, joint pain, joint stiffness, joint swelling, myalgias, neck pain or other Neurologic Neurologic: Reports paresthesias and tingling; Denies abnormal gait, abnormal speech, confusion, disequilibrium, dizziness, focal weakness, headache(s), numbness, seizure-like activity, seizures, syncope, tremor(s) or other Psychiatric Psychiatric: Reports depression; Denies anxiety, homicidal ideation, suicidal ideation or other Endocrine Endocrinology: Denies change in body appearance, cold intolerance, excessive sweating, heat intolerance, polydipsia, polyuria or other Hematologic/Lymphatic Hematologic/Lymphatic: Reports anemia and easy bruising; Denies easy bleeding, lymphadenopathy or other Allergic/Immunologic Allergic/Immunologic: Denies rhinitis, hives, eczemia, asthma or other Vital Signs Vital Signs Vital Signs: 07/11/24 11:28 07/11/24 13:27 07/11/24 13:51 Temperature 98.1 F 98.6 F Temperature Source Oral Pulse Rate 64 89 89 Respiratory Rate 19 H 18 18 Blood Pressure 145/110 H 140/100 H 140/100 H Blood Pressure Mean 121 113 113 Pulse Ox 97 99 99 Oxygen Delivery Method Room Air Weight Weight: 65.816 kg Body Mass Index (BMI) 20.2 Physical Exam Const alert, oriented x3, no apparent distress and average body habitus; Negative for healthy appearing or well nourished Constitutional Narrative: Middle-aged, white male, sitting up in bed, appears older than stated age, has just walked back from the bathroom, is holding his stomach and complaining of abdominal pain but is not bent over and able to ambulate independently, does not appear toxic General Appearance: cooperative HEENT normocephalic, head/scalp atraumatic, hearing grossly normal bilaterally and moist oral mucous membranes HEENT Narrative: Mallampati is 2, no thrush, dentition is poor Eyes Eyes Narrative: Mild pale conjunctiva bilaterally, no scleral icterus Neck supple Neck Narrative: Trachea midline, no thyroid enlargement Resp normal respiratory effort, no retractions and clear to auscultation bilaterally Resp Narrative: Diminished at bases bilaterally but otherwise clear with no adventitious sounds Auscultation: Negative for rales, rhonchi or wheezes Cardio regular rhythm, S1 normal heart sound, no rub, no gallops and no clicks; Negative for regular rate, S2 normal heart sound or no murmurs Cardio Narrative: Mildly tachycardic since returning from the bathroom, 4-6 systolic murmur loudest at right upper sternal border, soft S2 GI soft to palpation; Negative for non-tender GI Narrative: Generalized tenderness with no pinpoint tenderness, no fluid wave noted, hepatomegaly, small umbilical hernia, bowel sounds are hyperactive Extremity Extremity Narrative: Trace bilateral lower extremity edema, no cyanosis or clubbing, pedal and radial pulses are 2+ Skin skin turgor normal, no jaundice, no petechiae and no mottling Skin Narrative: Pale Neuro oriented x3, moves all extremities and no focal motor deficits Neuro Narrative: Ambulates independently without difficulty Speech: speech normal Psych Psych Narrative: Affect is flat but patient makes good eye contact and interacts with me appropriately Results Lab / Micro Data 07/11/24 12:06 07/11/24 12:06 Labs: Laboratory Results - last 24 hr 07/11/24 11:53: Urine Color Yellow, Urine Clarity Clear, Urine pH 8.0, Ur Specific [place] 1.010, Urine Protein 15 H, Urine Glucose (UA) Normal, Urine Ketones Negative, Urine Occult Blood Negative, Urine Nitrite Negative, Urine Bilirubin Negative, Urine Urobilinogen Normal, Ur Leukocyte Esterase Negative, Urine RBC 0 SEEN, Urine WBC 0 SEEN, Ur Squamous Epith Cells 0 SEEN, Urine Bacteria 0 SEEN, Urine Mucus 0 SEEN, Urine Opiates Screen NEGATIVE, U Buprenorphine Qual NEGATIVE, Ur Oxycodone Screen NEGATIVE, Urine Methadone Screen NEGATIVE, Urine Fentanyl Screen NEGATIVE, Ur Barbiturates Screen PRESUMPTIVE POSITIVE, Ur Phencyclidine Scrn NEGATIVE, Ur Amphetamines Screen NEGATIVE, U Benzodiazepines Scrn NEGATIVE, Urine Cocaine Screen NEGATIVE, U Cannabinoids Screen NEGATIVE 07/11/24 12:06: WBC 5.6, RBC 2.61 L, Hgb 9.3 L, Hct 29.1 L, MCV 111.5 H, MCH 35.6 H, MCHC 32.0, RDW Std Deviation 66.4 H, RDW Coeff of Kalpana 16.1 H, Plt Count 155, MPV 11.0, Immature Gran % (Auto) 0.500, Neut % (Auto) 74.9 H, Lymph % (Auto) 15.4 L, [place] % (Auto) 7.7, Eos % (Auto) 0.4, Baso % (Auto) 1.1 H, Absolute Neuts (auto) 4.2, Absolute Lymphs (auto) 0.86, Nucleated RBC % 0, Platelet Estimate A, Polychromasia RARE, Anisocytosis 1+, Sodium 140, Potassium 4.6, Chloride 103, Carbon Dioxide 28.3, Anion Gap 8, BUN 10, Creatinine 1.15, Estim Creat Clear Calc 62.80, Est GFR (MDRD) Non-Af 72, BUN/Creatinine Ratio 8.9 L, Glucose 137 H, Calcium 8.3, Total Bilirubin 0.34, Direct Bilirubin 0.21, AST 53 H, ALT 23, Alkaline Phosphatase 104, Total Protein 5.7 L, Albumin 2.9 L, Globulin 2.8, Lipase 6 L, Ethyl Alcohol < 10.1 Imaging Radiology Impression Abdomen/Pelvis CT 07/11/24 11:52 IMPRESSION: 1. Hepatomegaly with fatty infiltration. 2. Fecal retention in the colon consistent with constipation. 3. Umbilical hernia containing fat. 4. Bilateral pleural effusion with compressive atelectasis. Reading Location: [facility] Assessment & Plan Assessment/Plan (1) Abdominal pain: (2) Nausea & vomiting: (3) Suicidal ideation: PLAN: Plan Acute on chronic abdominal pain secondary to ileus versus partial small bowel obstruction - CT abdomen pelvis shows developing partial small bowel obstruction versus ileus with significant constipation and stable bilateral pleural effusions - NPO with IV fluids utilizing LR at 75 cc/h for 2 L - As needed antiemetics - Reglan 5 mg IV push every 6 hours x 4 doses - Fleets enema x 4 doses every 4 hours - Daily Dulcolax suppository - Does not appear to need NG tube at this time however will monitor closely for need -Would like to avoid due to previous EGD showing gastric varices - As needed Toradol for pain would like to avoid narcotics if possible due to ileus versus bowel obstruction -Will add if Toradol not effective but would like to use sparingly - General Surgery consultation is pending and Dr. Fontanez is aware - Chronic abdominal pain is likely related to chronic alcoholic pancreatitis - Hold Creon until p.o. diet can be added Creon back home p.o. diet initiated Suicidal ideation - Patient initially came in for suicidal ideation - Will implement suicide precautions - Will need crisis consult prior to being discharged once medically stable Compensated alcoholic liver cirrhosis/hepatomegaly - Potentially has some functioning liver - no marked cirrhosis type morphology noted on imaging - No significant splenomegaly - Continue home Lasix dosing of 20 mg daily - Will utilize IV fluids to avoid dehydration while NPO - Continue home Aldactone - Recommend ongoing outpatient follow-up with gastroenterology Chronic macrocytic anemia - Baseline seems to be between 8 and 10 -Hemoglobin currently stable at 9.3 - EGD performed on 06/27/2024 and showed a normal esophagus with type I isolated gastric varices without bleeding, portal hypertensive gastropathy that was biopsied and no gross lesions in the entire duodenum -Repeat CBC in a.m. History of thrombocytopenia - Resolved CKD stage II - Serum creatinine is currently 1.15 which is within his range of normal - Continue to monitor - IV fluids as ordered DM-2 - Continue home Farxiga - Continue SSI every 6 hours while NPO - Hold oral agents other than Farxiga - N.p.o. and transition to cardiac/carb controlled once diet can be initiated - Accu-Cheks as ordered CAD/essential hypertension/hyperlipidemia/chronic HFrEF -Continue home metoprolol -Continue home Aldactone -Continue home Lasix -Hold atorvastatin -Echocardiogram was performed on 07/03/2024 and showed EF of 35 to 40% with global hypokinesis, severe concentric LVH, moderate to severe bioprosthetic aortic valve stenosis with an aortic valve area estimated at 1.1 cm? and a mean aortic valve gradient of 40.2 mmHg, trivial mitral valve regurgitation and impaired relaxation of the LV Severe aortic stenosis - Patient with history of bioprosthetic valve and previous mechanical replacement then porcine bioprosthetic replacement - Will need outpatient evaluation for repeat aortic valve replacement - Will need ALBERT and probable referral to a [facility] - Outpatient follow-up here with cardiology after discharge Diabetic neuropathy - Continue home gabapentin GERD - Continue Protonix but IV p.o. twice daily - Transition to oral Protonix p.o. twice daily 40 mg once able to start p.o. intake consistently without difficulty History of alcohol abuse - patient without any current significant alcohol use -Hold thiamine and folate for now History of sick sinus syndrome - Continue home metoprolol - Previous pacemaker History of AAA/thoracic aortic aneurysm - Had thoracic dissection and was treated at [facility] History of heroin abuse - Remote - patient states he has been clean for approximately 10 years Tobacco abuse - Encouraged cessation - nicotine patch replacement available Medical noncompliance - Patient continues to be noncompliant with his medications - His last admission was related to medical noncompliance and he states has not been taking his medicines at this time either - States he does not know why when I asked him why he is not taking them - I suspect there is a component of mental health leading to this decision DVT prophylaxis -Enoxaparin 40 daily CODE STATUS - Full code Charges/Coding Visit Charges Inpatient E&M: 86000 Init Hosp L2
[2024-07-11] MEDS: Metoclopramide 10 MG/2 ML Vial IV (14:18)
--- NOTE | 2024-07-11 15:14 | CM.ED ---
Social work Reason for referral: mental health 1100: Marcia from Crisis (ph: [phone]) called to state an Prudencio client was in route to [facility] with an Prudencio therapeutic case manager. Per Marcia, the patient was diagnosed with alcohol use disorder and MDD and patient was currently receiving no ongoing services with [facility]. Marcia stated patient would need a ride set up to head home if safety planning was decided after the mental health assessment. SW expressed understanding. 1130: Upon patient's arrival, this SW was contacted by Radha GILLIS who was currently covering [facility] triage that patient had been assigned a room and patient's therapeutic case manager, Any, was present in patient's room. This SW entered patient's room, introducing self and role at [facility] to both patient and Any. BLANKA asked if Any wanted to speak privately prior to leaving [facility]; both patient and Any agreed. In a private conversation, Any Forman (ph: [phone]) therapeutic case manager from [facility], stated patient had a case management appointment set up today after being in the hospital for large parts of the last 2 weeks. Per Any, Any has been seeing patient for about the last 6 months when patient sought out services due to getting a workplace rehabilitation officer for a DUI; workplace rehabilitation officer is still in place. Any stated the focus of case management the last few months has been [place] and patient has reportedly maintained sobriety throughout. Patient reportedly told Any that maintaining sobriety has been difficult lately with the head space patient reports being in. Any stated patient could not recall having a home appointment this morning and was reportedly observed being disheveled upon Any's arrival to the home. Per Any, patient reportedly expressed stopping all medication, not caring if the medications are working, and not eating over the last few days. Any expressed to this SW that patient stated not really desiring to self harm, though patient reportedly stated patient would not actively try to stop anything if it accidentally happened. Patient reportedly does have inpatient psychiatric treatment history at a [place] placement. Patient reportedly has alcohol use disorder and MDD; Any stated patient reported drinking in the past when in this current head space. Per Any, patient is reportedly agreeable to being placed. 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 Per Any, patient's father has nurses that come to the home 2 times per week. 1500: Patient unable to be medically cleared at this time for SW mental health assessment. This SW went back in to patient's room to verify patient's desire for SW to update Any; PUSHPA signed. Patient stated frustration with being admitted to [facility] acute floors for the last 3 weeks. Patient has been admitted from 06/26/24 - 06/28/24 and 07/01/24 - 07/06/24. SW asked patient what patient was struggling with the most currently and patient stated just not caring about myself at all right now. Patient was observed laying on patient's side in the bed; patient did make eye contact when talking with this SW briefly prior to being taken to acute. 1510: Called Any to update on patient's admission to acute. No further needs identified at this time. Plan: admission to acute; will need mental health assessment prior to disposition. Marylu Barros, SUBCONTRACT MANAGER, PRICE CHANGER
[2024-07-11] MEDS: Lactated Ringers 1,000 ML 75 ML IV (17:38)
[2024-07-11] MEDS: Fleet Enema 133 ML RC (18:28)
[2024-07-11] MEDS: Metoclopramide 10 MG/2 ML Vial 5 MG IV ×2 (18:28→23:13)
[2024-07-11 18:53] LABS: Bedside Glucose 149 mg/dL (74-106)
[2024-07-11] MEDS: Pantoprazole Sodium 40 MG in 0.9% Normal Saline (100mL MB+) 100 ML 330 MG IV (22:39)
[2024-07-11 23:35] LABS: Bedside Glucose 97 mg/dL (74-106)
[2024-07-12 04:55] VITALS: BP 115/80; PULSE 84; RESP 16; TEMP 36.7; O2SAT 96
[2024-07-12] MEDS: Metoclopramide 10 MG/2 ML Vial 5 MG IV ×2 (06:10→11:54)
[2024-07-12 06:11] LABS: Absolute Lymphocyte Count 1.21 X10^3/uL (0.83-4.51); Absolute Neutrophil Count 2.8 X10^3/uL (2.0-7.7); Basophil# 0.07 X10^3/uL; Basophil% 1.5 % (0-1); Eosinophil# 0.08 X10^3/uL; Eosinophils% 1.7 % (0-5); Hematocrit 25.9 % (40-54); Hemoglobin 8.5 g/dL (13.0-16.5); Lymphocyte # 1.21 X10^3/ul (0.83-4.51); Mean Corp Hgb Conc 32.8 g/dL (32-36); Mean Corpuscular Hgb 36.6 pg (27.0-32.0); Mean Corpuscular Volume 111.6 fL (80-94); Mean Platelet Vol. 11.4 fl (6.2-12.0); Monocyte# 0.49 X10^3/uL; Monocyte% 10.5 % (0-10); NRBC Flagged by Analyzer 0 % (0-5); Neutrophil # 2.78 X10^3/uL (2.7-7.7); Neutrophil % 59.7 % (47-70); POSITIVE MORPHOLOGY YES; Platelet Count 161 K/mm3 (150-450); RBC Distribution Width CV 16.1 % (11.6-14.6); RBC Distribution Width SD 66.2 fl (35.1-43.9); Red Blood Count 2.32 M/mm3 (4.6-6.2); White Blood Count 4.7 K/mm3 (4.4-11.0)
[2024-07-12] MEDS: Ketorolac 15 MG/ML Vial IV ×3 (06:21→22:53)
[2024-07-12] MEDS: Lactated Ringers 1,000 ML 75 ML IV (06:22)
[2024-07-12 06:25] LABS: Differential Indicated SCAN CRITERIA MET
[2024-07-12 06:29] LABS: Bedside Glucose 94 mg/dL (74-106)
[2024-07-12 06:49] LABS: ALB/GLOB Ratio 0.9 RATIO (0.9-2.4); AST(SGOT) 51 U/L (<=37); Alanine Aminotransfer ALT/SGPT 20 U/L (<=46); Albumin, Serum 2.5 g/dL (3.4-4.8); Alkaline Phosphatase 90 U/L (40-129); Anion Gap 7 (5-15); BUN 9 mg/dL (4-19); BUN/Creat Ratio 8.3 RATIO (10-20); Calcium,Total 8.1 mg/dL (7.6-11.0); Carbon Dioxide 22.8 mmol/L (21.0-32.0); Chloride 108 mmol/L (98-108); Creatinine, Serum 1.12 mg/dL (0.70-1.20); EST Glomerular Filtration Rate 75 (>60); Estimated Creatinine Clearance 63.78 ml/min (50-250); Globulin 2.6 g/dL (2.2-4.2); Glucose 93 mg/dL (70-99); Potassium 4.2 mmol/L (3.3-5.1); Protein, Total 5.1 g/dL (5.9-8.4); Sodium Level 138 mmol/L (133-145); Total Bilirubin 0.36 mg/dL (0.00-1.30)
[2024-07-12 06:55] LABS: Anisocytosis 1+
--- NOTE | 2024-07-12 07:15 | PCM.PN.HOSP ---
Reason for Visit Reason for Visit: Diagnoses Unspecified abdominal pain (07/11/24) Nausea with vomiting, unspecified (07/11/24) Suicidal ideations (07/11/24) Subjective Subjective Patient is a 63-year-old gentleman presented with abdominal pain imaging studies demonstrated partial small bowel obstruction versus ileus with significant constipation admitted to regular nursing floor for further management Objective Data Objective Data Vital Signs: Vital Signs Temp Pulse Resp BP Pulse Ox O2 Del Method 98.1 F 84 16 115/80 96 Room Air 07/12/24 04:55 07/12/24 04:55 07/12/24 04:55 07/12/24 04:55 07/12/24 04:55 07/12/24 04:55 Oxygen Delivery Method Room Air Weight: 65.1 kg Body Mass Index (BMI) 20.0 Intake & Output: Intake and Output for Last 24 Hours 07/10/24 07/11/24 07/12/24 23:59 23:59 23:59 Intake Total 1476.25 / 1476.25 507.5 / 507.5 Balance 1476.25 / 1476.25 507.5 / 507.5 Lab / Micro Data 07/12/24 05:52 07/12/24 05:52 Labs: Laboratory Results - last 24 hr 07/11/24 11:53: Urine Color Yellow, Urine Clarity Clear, Urine pH 8.0, Ur Specific [place] 1.010, Urine Protein 15 H, Urine Glucose (UA) Normal, Urine Ketones Negative, Urine Occult Blood Negative, Urine Nitrite Negative, Urine Bilirubin Negative, Urine Urobilinogen Normal, Ur Leukocyte Esterase Negative, Urine RBC 0 SEEN, Urine WBC 0 SEEN, Ur Squamous Epith Cells 0 SEEN, Urine Bacteria 0 SEEN, Urine Mucus 0 SEEN, Urine Opiates Screen NEGATIVE, U Buprenorphine Qual NEGATIVE, Ur Oxycodone Screen NEGATIVE, Urine Methadone Screen NEGATIVE, Urine Fentanyl Screen NEGATIVE, Ur Barbiturates Screen PRESUMPTIVE POSITIVE, Ur Phencyclidine Scrn NEGATIVE, Ur Amphetamines Screen NEGATIVE, U Benzodiazepines Scrn NEGATIVE, Urine Cocaine Screen NEGATIVE, U Cannabinoids Screen NEGATIVE 07/11/24 12:06: WBC 5.6, RBC 2.61 L, Hgb 9.3 L, Hct 29.1 L, MCV 111.5 H, MCH 35.6 H, MCHC 32.0, RDW Std Deviation 66.4 H, RDW Coeff of [place] 16.1 H, Plt Count 155, MPV 11.0, Immature Gran % (Auto) 0.500, Neut % (Auto) 74.9 H, Lymph % (Auto) 15.4 L, [place] % (Auto) 7.7, Eos % (Auto) 0.4, Baso % (Auto) 1.1 H, Absolute Neuts (auto) 4.2, Absolute Lymphs (auto) 0.86, Nucleated RBC % 0, Platelet Estimate A, Polychromasia RARE, Anisocytosis 1+, Sodium 140, Potassium 4.6, Chloride 103, Carbon Dioxide 28.3, Anion Gap 8, BUN 10, Creatinine 1.15, Estim Creat Clear Calc 62.80, Est GFR (MDRD) Non-Af 72, BUN/Creatinine Ratio 8.9 L, Glucose 137 H, Calcium 8.3, Total Bilirubin 0.34, Direct Bilirubin 0.21, AST 53 H, ALT 23, Alkaline Phosphatase 104, Total Protein 5.7 L, Albumin 2.9 L, Globulin 2.8, Lipase 6 L, Ethyl Alcohol < 10.1 07/11/24 18:26: POC Glucose 149 H 07/11/24 23:17: POC Glucose 97 07/12/24 05:52: WBC 4.7, RBC 2.32 L, Hgb 8.5 L, Hct 25.9 L, MCV 111.6 H, MCH 36.6 H, MCHC 32.8, RDW Std Deviation 66.2 H, RDW Coeff of [place] 16.1 H, Plt Count 161, MPV 11.4, Immature Gran % (Auto) 0.600, Neut % (Auto) 59.7, Lymph % (Auto) 26.0, [place] % (Auto) 10.5 H, Eos % (Auto) 1.7, Baso % (Auto) 1.5 H, Absolute Neuts (auto) 2.8, Absolute Lymphs (auto) 1.21, Nucleated RBC % 0, Anisocytosis 1+, Sodium 138, Potassium 4.2, Chloride 108, Carbon Dioxide 22.8, Anion Gap 7, BUN 9, Creatinine 1.12, Estim Creat Clear Calc 63.78, Est GFR (MDRD) Non-Af 75, BUN/Creatinine Ratio 8.3 L, Glucose 93, Calcium 8.1, Phosphorus 3.0, Magnesium 2.0, Total Bilirubin 0.36, AST 51 H, ALT 20, Alkaline Phosphatase 90, Total Protein 5.1 L, Albumin 2.5 L, Globulin 2.6, Albumin/Globulin Ratio 0.9 07/12/24 06:08: POC Glucose 94 Radiography Diagnostic Testing: Radiology Impression Abdomen/Pelvis CT 07/11/24 11:52 IMPRESSION: 1. Hepatomegaly with fatty infiltration. 2. Fecal retention in the colon consistent with constipation. 3. Umbilical hernia containing fat. 4. Bilateral pleural effusion with compressive atelectasis. Reading Location: [facility] Physical Exam Narrative GENERAL: cooperative HEENT: Atraumatic; normocephalic EYES; Anicteric, Normal Conjunctiva NECK; supple, normal thyroid, RESPIRATORY: Diminished to auscultation CARDIOVASCULAR: Regular S1 S2, GI: soft, normoactive bowel sounds, : No Renal angle tenderness; EXTREMITIES: No edema, no clubbing, MUSCULOSKELETAL: no muscle wasting NEURO: Awake; no lateralizing signs. SKIN: No Rash PSYCH; Flat affect Assessment & Plan Assessment/Plan (1) Abdominal pain: (2) Nausea & vomiting: (3) Suicidal ideation: PLAN: Plan Patient is a 63-year-old gentleman presented with abdominal pain imaging studies demonstrated partial small bowel obstruction versus ileus with significant constipation admitted to regular nursing floor for further management 1. Acute on chronic abdominal pain secondary to ileus versus partial small bowel obstruction - CT abdomen pelvis shows developing partial small bowel obstruction versus ileus with significant constipation and stable bilateral pleural effusions. Patient admitted to regular nursing floor treatment initiated with Fleet enemas. Patient did have some bowel movement. Repeat KUB ordered this a.m. for response to therapy 2. Suicidal ideation ? Patient was placed under suicide precaution with consultation placed to the crisis center 3. Chronic abdominal pain?secondary to chronic pancreatitis ? Patient is on Creon did continue 4. Anemia ? Secondary to chronic disorder monitoring H&H and transfuse if patient becomes symptomatic or hemoglobin falls below 7 6. Acute kidney injury ? Patient creatinine on 07/05/2024 was 1.70 improved with hydration creatinine down to 1.12 7.? Diabetes mellitus type II -Continue patient on his home regimen in addition to Accu-Cheks before meals and at bedtime with sliding scale coverage 8.? Sick sinus syndrome ? Status post pacemaker placement 9.? History of ascending aortic dissection ? Status post repair 10.? Valvular heart disease - history of aortic valve replacement with bioprosthetic material 11.? Hypertension - Blood pressure low on admission antihypertensives held 12. Dyslipidemia -Patient is on statin therapy, continued at home dose 13. GERD ? On famotidine 14. Physical deconditioning - Requested for PT OT eval and child protective services social worker to assist with discharge planning 15. Tobacco dependence ? Counseled on cessation, offered nicotine patch for tobacco cravings 16. Chronic congestive heart failure with reduced ejection fraction ? Patient is on furosemide Aldactone as well as metoprolol continued. Patient had a 2D echo performed on 07/01/2024 which did show The estimated ejection fraction is 35-40 %. Moderate LV systolic dysfunction with global LV hypokinesia. 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 Mean aortic valve gradient 40.2 mmHg. Pacemaker lead seen in the right ventricle Trivial MR Transmitral Doppler flow revealed impaired relaxation of LV. 17. DVT prophylaxis -Enoxaparin 40 daily Time spent in the patient's overall evaluation,decision-making process, review of diagnostic data, adjustment of management, discussion with other providers, nursing nursing and ancillary staff involved in patient's care documentation,52 Minutes Charges/Coding Visit Charges Inpatient E&M: [address] [place] [id number]
[2024-07-12 09:02] VITALS: O2SAT 98
[2024-07-12 09:05] VITALS: BP 184/103; PULSE 90; RESP 18; TEMP 36.9; O2SAT 98
[2024-07-12 09:16] VITALS: PULSE 90
[2024-07-12] MEDS: Metoprolol(XL)Succ 25 MG Tablet 12.5 MG PO (09:16)
[2024-07-12] MEDS: Furosemide 20 MG Tablet PO (09:16)
[2024-07-12] MEDS: Gabapentin 300 MG Capsule PO (09:16)
[2024-07-12] MEDS: Spironolactone 25 MG Tablet PO (09:17)
[2024-07-12] MEDS: Pantoprazole Sodium 40 MG in 0.9% Normal Saline (100mL MB+) 100 ML 330 MG IV ×2 (09:18→22:46)
[2024-07-12] MEDS: Empagliflozin 25 MG Tablet PO (09:18)
[2024-07-12] MEDS: 0.9% Saline Lock 10 ML Syringe IV ×3 (09:18→15:30)
[2024-07-12] MEDS: proCHLORPERazine 10 MG/2 ML Vial 5 MG IV (09:21)
--- NOTE | 2024-07-12 09:27 | EX.PCM.CON.S ---
Assessment & Plan Assessment/Plan (1) Abdominal pain: (2) Partial bowel obstruction: PLAN: Plan I have been consulted in conjunction with Dr. Fontanez. He has independently evaluated this patient. Patient is a 63 y/o M who presents with suicidal ideation, abdominal pain and nausea. Patient has a chronic history of irregular bowel habits. Patient successfully had multiple bowel movements following 2 enemas. We will plan to start the patient on clear liquids. No surgical intervention is being recommended at this time. Patient has had the opportunity to ask and have questions answered. Patient verbally understands and agrees with the proposed plan. Thank you for allowing us to participate in this patient's care. HPI Consult Data Date of Consult: 07/12/24 HPI Narrative Reason for Consultation: Ileus versus small bowel obstruction HPI Narrative: ANALILIA TALLEY, is a 63 M who presents with suicidal ideation. Patient spoke with his counselor yesterday morning stating he did not want to live anymore. During evaluation in the ED, patient was noted to have abdominal pain with associated nausea. CT scan of the ab/pel was obtained demonstrating multiple distended small loops of bowel, fecal retention in the colon consistent with constipation, umbilical hernia containing fat, bilateral pleural effusions, hepatomegaly with fatty infiltration. Patient notes a history of irregular bowel habits. He is unsure when his last bowel movement was. He has a history of chronic pancreatitis. Patient had 2 enemas overnight. He states he had 3 small loose liquidy bowel movements. He denies feeling nauseated now. He notes his abdominal pain has improved. [facility]LY [facility] Medical History Thrombocytopenia Chronic pancreatitis Macrocytosis associated with alcohol Ascites due to alcoholic cirrhosis Chronic diarrhea Chronic alcohol abuse Abdominal ascites MALIK (acute kidney injury) Seizures Alcoholic hepatitis Chronic pancreatitis Gastric wall thickening Alcohol dependence Anxiety Diabetes Pancreatitis Myocardial infarct Pacemaker AAA (abdominal aortic aneurysm) Admitted to alcohol detoxification center Alcohol abuse Hx of hypercholesterolemia History of diabetes mellitus Alcohol dependence Substance abuse Smoker Alcoholism Right bundle branch block (RBBB) Non-sustained ventricular tachycardia Thoracic aortic aneurysm SVT (supraventricular tachycardia) Ascending aortic dissection (~2005) Pure hypercholesterolemia Adrenal nodule Hiatal hernia Left carotid bruit Cardiac pacemaker in situ (~06/2016) Essential hypertension Pacemaker Sick sinus syndrome Tobacco use HTN (hypertension) Diabetes mellitus, type II Home Medications ?Medication ?Instructions ?Recorded ?Last Taken ?Type atorvastatin 10 mg tablet 10 mg PO DAILY CHOLESTEROL 10/17/20 04/19/23 History dapagliflozin propanediol 10 mg 10 mg PO DAILY DIABETES 09/30/21 04/19/23 History tablet (Farxiga) multivitamin 1 tab PO DAILY SUPPLEMENT 11/11/21 11/10/21 History gabapentin 300 mg capsule 300 mg PO DAILY NEUROPATHY 11/14/22 Unknown History metformin 500 mg tablet,extended 500 mg PO BID DIABETES 11/15/22 04/19/23 History release 24 hr L.acidophil,salivari-Bifido 2 cap PO BID #0 caps 05/20/23 Unknown Rx bifidum-Strep thermoph 175 mg capsule folic acid 1 mg tablet 1 mg PO DAILY@0800 supplement #0 05/20/23 Unknown Rx tabs insulin lispro 100 unit/mL See Protocol subcut ACHS diabetes 05/20/23 Unknown Rx subcutaneous pen (Humalog KwikPen #0 mL (U-100) Insulin) thiamine HCl (vitamin B1) 100 mg 100 mg PO DAILYCM vitamin #0 tabs 05/20/23 Unknown Rx tablet (Vitamin B-1) pantoprazole 40 mg tablet,delayed 40 mg PO BID reflux #60 tabs 06/27/23 Unknown Rx release modrba-pofzilzg-obfxjdn 1 cap PO TIDCM #90 caps 06/28/24 Unknown Rx 24,000-76,000-120,000 unit capsule,delayed rel (Creon) ferrous sulfate 325 mg (65 mg 325 mg PO DAILY supplement 06/30/24 Unknown History iron) tablet (FeroSul) furosemide 20 mg tablet 20 mg PO DAILY 30 days #30 tabs 07/06/24 Unknown Rx metoprolol succinate 25 mg 12.5 mg (1/2 x 25 mg) PO DAILY 30 07/06/24 Unknown Rx tablet,extended release 24 hr days #15 tabs spironolactone 25 mg tablet 25 mg PO DAILY 30 days #30 tabs 07/06/24 Unknown Rx tramadol 50 mg tablet 50 mg PO Q8H PRN pain 3 days #9 07/06/24 Unknown Rx tabs Allergy/AdvReac Type Severity Reaction Status Date / Time No Known Allergies Allergy Verified 07/11/24 11:38 Family History Father CAD (coronary artery disease) Mother Dementia Surgical History H/O cardiac catheterization History of aortic aneurysm repair (~2017) History of cataract surgery History of hernia repair History of aortic valve replacement with bioprosthetic valve (~2017) H/O aortic valve replacement Social History household members: family housing: house Smoking Status: Current every day smoker tobacco type: cigarettes alcohol intake: current alcohol intake frequency: 0-2 drinks per day details: Reports currently ~ 2 tall boys daily. substance use type: former substance user caffeine: Yes Type: coffee Number of servings: 3 ROS Constitutional Constitutional: Reports systems reviewed and no addt'l complaints, except as documented Eyes Eyes: Reports systems reviewed and no addt'l complaints, except as documented ENT HEENT: Reports systems reviewed and no addt'l complaints, except as documented Cardiovascular Cardiovascular: Reports systems reviewed and no addt'l complaints, except as documented Respiratory/Chest Respiratory/Chest: Reports systems reviewed and no addt'l complaints, except as documented Gastrointestinal Gastrointestinal: Reports systems reviewed and no addt'l complaints, except as documented Genitourinary Genitourinary: Reports systems reviewed and no addt'l complaints, except as documented Musculoskeletal Musculoskeletal: Reports systems reviewed and no addt'l complaints, except as documented Integumentary Integumentary: Reports systems reviewed and no addt'l complaints, except as documented Neurologic Neurologic: Reports systems reviewed and no addt'l complaints, except as documented Psychiatric Psychiatric: Reports systems reviewed and no addt'l complaints, except as documented Endocrine Endocrinology: Reports systems reviewed and no addt'l complaints, except as documented Hematologic/Lymphatic Hematologic/Lymphatic: Reports systems reviewed and no addt'l complaints, except as documented Allergic/Immunologic Allergic/Immunologic: Reports systems reviewed and no addt'l complaints, except as documented Physical Exam Const alert, oriented x3 and no apparent distress HEENT normocephalic and head/scalp atraumatic Eyes PERRL Neck full ROM Resp normal respiratory effort and clear to auscultation bilaterally Cardio regular rate and regular rhythm GI GI Narrative: Abdomen- soft, nondistended, nontender to palpation no CVA tenderness Back/Spine no CVA tenderness Extremity normal to inspection Skin no rashes or lesions noted Neuro no focal motor deficits and no sensory deficits noted Psych mental status grossly normal, thought process normal and cooperative Lab / Micro Data 07/12/24 05:52 07/12/24 05:52 Labs: Laboratory Results - last 24 hr 07/11/24 11:53: Urine Color Yellow, Urine Clarity Clear, Urine pH 8.0, Ur Specific [place] 1.010, Urine Protein 15 H, Urine Glucose (UA) Normal, Urine Ketones Negative, Urine Occult Blood Negative, Urine Nitrite Negative, Urine Bilirubin Negative, Urine Urobilinogen Normal, Ur Leukocyte Esterase Negative, Urine RBC 0 SEEN, Urine WBC 0 SEEN, Ur Squamous Epith Cells 0 SEEN, Urine Bacteria 0 SEEN, Urine Mucus 0 SEEN, Urine Opiates Screen NEGATIVE, U Buprenorphine Qual NEGATIVE, Ur Oxycodone Screen NEGATIVE, Urine Methadone Screen NEGATIVE, Urine Fentanyl Screen NEGATIVE, Ur Barbiturates Screen PRESUMPTIVE POSITIVE, Ur Phencyclidine Scrn NEGATIVE, Ur Amphetamines Screen NEGATIVE, U Benzodiazepines Scrn NEGATIVE, Urine Cocaine Screen NEGATIVE, U Cannabinoids Screen NEGATIVE 07/11/24 12:06: WBC 5.6, RBC 2.61 L, Hgb 9.3 L, Hct 29.1 L, MCV 111.5 H, MCH 35.6 H, MCHC 32.0, RDW Std Deviation 66.4 H, RDW Coeff of [place] 16.1 H, Plt Count 155, MPV 11.0, Immature Gran % (Auto) 0.500, Neut % (Auto) 74.9 H, Lymph % (Auto) 15.4 L, [place] % (Auto) 7.7, Eos % (Auto) 0.4, Baso % (Auto) 1.1 H, Absolute Neuts (auto) 4.2, Absolute Lymphs (auto) 0.86, Nucleated RBC % 0, Platelet Estimate A, Polychromasia RARE, Anisocytosis 1+, Sodium 140, Potassium 4.6, Chloride 103, Carbon Dioxide 28.3, Anion Gap 8, BUN 10, Creatinine 1.15, Estim Creat Clear Calc 62.80, Est GFR (MDRD) Non-Af 72, BUN/Creatinine Ratio 8.9 L, Glucose 137 H, Calcium 8.3, Total Bilirubin 0.34, Direct Bilirubin 0.21, AST 53 H, ALT 23, Alkaline Phosphatase 104, Total Protein 5.7 L, Albumin 2.9 L, Globulin 2.8, Lipase 6 L, Ethyl Alcohol < 10.1 07/11/24 18:26: POC Glucose 149 H 07/11/24 23:17: POC Glucose 97 07/12/24 05:52: WBC 4.7, RBC 2.32 L, Hgb 8.5 L, Hct 25.9 L, MCV 111.6 H, MCH 36.6 H, MCHC 32.8, RDW Std Deviation 66.2 H, RDW Coeff of [place] 16.1 H, Plt Count 161, MPV 11.4, Immature Gran % (Auto) 0.600, Neut % (Auto) 59.7, Lymph % (Auto) 26.0, [place] % (Auto) 10.5 H, Eos % (Auto) 1.7, Baso % (Auto) 1.5 H, Absolute Neuts (auto) 2.8, Absolute Lymphs (auto) 1.21, Nucleated RBC % 0, Anisocytosis 1+, Sodium 138, Potassium 4.2, Chloride 108, Carbon Dioxide 22.8, Anion Gap 7, BUN 9, Creatinine 1.12, Estim Creat Clear Calc 63.78, Est GFR (MDRD) Non-Af 75, BUN/Creatinine Ratio 8.3 L, Glucose 93, Calcium 8.1, Phosphorus 3.0, Magnesium 2.0, Total Bilirubin 0.36, AST 51 H, ALT 20, Alkaline Phosphatase 90, Total Protein 5.1 L, Albumin 2.5 L, Globulin 2.6, Albumin/Globulin Ratio 0.9 07/12/24 06:08: POC Glucose 94 Imaging Radiology Impression Abdomen/Pelvis CT 07/11/24 11:52 IMPRESSION: 1. Hepatomegaly with fatty infiltration. 2. Fecal retention in the colon consistent with constipation. 3. Umbilical hernia containing fat. 4. Bilateral pleural effusion with compressive atelectasis. Reading [facility] Charges/Coding Visit Charges Inpatient E&M: 54404 Init Hosp L2
--- NOTE | 2024-07-12 09:37 | RAD_ITS ---
PROCEDURE: ABD INC DECUB AND/OR ERECT 07/12/2024 REASON FOR EXAM: PSBO TECHNIQUE: Four view supine and upright abdomen. COMPARISON: [employer] Consultant from the CT examination of 07/11/2024. RAD/Abd Inc Decub and/or Erect IMPRESSION: Limited imaging chest demonstrates left basilar airspace disease, and with ques tionable small left pleural effusion. No evidence of pneumoperitoneum. Prominent bilateral arterial calcification is seen, most apparent in the iliac arteries. Air and stool are seen throughout the large bowel and rectum. Multiple air-filled but nondilated small bowel loops are noted. No mass or mass effect is seen. Reading Location: [id number]
[2024-07-12] MEDS: Enoxaparin 40 MG/0.4 ML Syringe SC (10:46)
[2024-07-12] MEDS: Bisacodyl 10 MG Suppository RC (10:47)
[2024-07-12 11:43] LABS: Bedside Glucose 236 mg/dL (74-106)
[2024-07-12] MEDS: Insulin Lispro 100 UNIT/ML INSULN.PEN SC (11:56)
--- NOTE | 2024-07-12 14:30 | RAD_ITS ---
PROCEDURE: SMALL BOWEL SERIES ONLY 07/12/2024 REASON FOR EXAM: ILEUS TECHNIQUE: Serial radiographs of the abdomen after administration of enteric contrast. COMPARISON: 07/12/2024. FINDINGS: Enteric contrast fills the stomach and small bowel reaching the colon at 1 hour. Normal caliber large and small bowel. RAD/Small Bowel Series Only IMPRESSION: No evidence of ileus or obstruction. Reading Location: [id number]
--- NOTE | 2024-07-12 14:59 | CASEMGMT ---
ELIS KEATING Readmission Note: Readmission note: Index: 06/30/24-07/06/24. Dx: Pleural Effusions, Hypoxia, ABD Pain and Distention 06/25/24-06/28/24. Dx: Critical Hypokalemia, Lactic Acidosis Current: 07/11/24 Dx: Ileus VS PSBO From the index admission, the pt was discharged home with his father with OP therapy through . The pt was sent home with new medication prescriptions, and was to discontinue taking several medications. Pt also has a history of ETOH and tobacco abuse. SW provided the pt with resources during the index admission. The Pt presented to the emergency department at [facility] on 07/11/2024 with a chief complaint of suicidal ideation and nausea and vomiting. ELIS KEATING to pt room at this time. Pt is A&Ox4 and is resting in bed. Pt states he is unsure if he got his rx filled after discharging. Pt states I don't have it all figured out when asking if Pt stopped taking medications that were DC'd after most recent admission. Pt states it's confusing to me. Pt reports he lives with his 95 yr old dad, We take care of each other. Pt states he was not able to schedule a F/U appointment with PCP or chocolate finisher operator yet. PT is interested in C at this time. However, HH could not be set up during the initial admission as the in-network HHC agencies declined the pt. Pt will be evaluated by crisis when . Henry asked if he could have his phone to call and check in with his home lending officer, ELIS KEATING notified SW of Pt request. Pt denies further concerns at this time. CM to follow. Juany GILLIS CM
[2024-07-12 15:27] VITALS: BP 115/79; PULSE 82; RESP 16; TEMP 36.4; O2SAT 97
[2024-07-12 17:39] LABS: Bedside Glucose 99 mg/dL (74-106)
[2024-07-12 22:52] VITALS: BP 126/83; PULSE 88; RESP 16; TEMP 37.2; O2SAT 94
[2024-07-12 23:53] LABS: Bedside Glucose 98 mg/dL (74-106)
[2024-07-13 02:17] VITALS: BP 156/62; PULSE 98; RESP 18; TEMP 36.7; O2SAT 96
[2024-07-13] MEDS: Ondansetron 4 MG/2 ML Vial IV (02:18)
[2024-07-13 04:43] VITALS: BMI 21.3
[2024-07-13] MEDS: 0.9% Saline Lock 10 ML Syringe IV ×2 (05:54→22:33)
[2024-07-13] MEDS: Ketorolac 15 MG/ML Vial IV (05:54)
[2024-07-13 07:06] LABS: Bedside Glucose 101 mg/dL (74-106)
[2024-07-13 07:48] LABS: Absolute Lymphocyte Count 1.06 X10^3/uL (0.83-4.51); Absolute Neutrophil Count 4.8 X10^3/uL (2.0-7.7); Basophil# 0.06 X10^3/uL; Basophil% 0.9 % (0-1); Eosinophil# 0.09 X10^3/uL; Eosinophils% 1.4 % (0-5); Hematocrit 26.5 % (40-54); Hemoglobin 8.5 g/dL (13.0-16.5); Lymphocyte # 1.06 X10^3/ul (0.83-4.51); Lymphocyte % 16.6 % (19-41); Mean Corp Hgb Conc 32.1 g/dL (32-36); Mean Corpuscular Hgb 35.9 pg (27.0-32.0); Mean Corpuscular Volume 111.8 fL (80-94); Monocyte# 0.42 X10^3/uL; Monocyte% 6.6 % (0-10); NRBC Flagged by Analyzer 0 % (0-5); Neutrophil # 4.75 X10^3/uL (2.7-7.7); Neutrophil % 74.2 % (47-70); Platelet Count 165 K/mm3 (150-450); RBC Distribution Width CV 15.6 % (11.6-14.6); RBC Distribution Width SD 63.7 fl (35.1-43.9); Red Blood Count 2.37 M/mm3 (4.6-6.2); White Blood Count 6.4 K/mm3 (4.4-11.0)
[2024-07-13 08:06] LABS: Anion Gap 11 (5-15); BUN 8 mg/dL (4-19); BUN/Creat Ratio 6.7 RATIO (10-20); Calcium,Total 8.3 mg/dL (7.6-11.0); Carbon Dioxide 21.2 mmol/L (21.0-32.0); Chloride 107 mmol/L (98-108); Creatinine, Serum 1.19 mg/dL (0.70-1.20); EST Glomerular Filtration Rate 69 (>60); Glucose 96 mg/dL (70-99); Phosphorus 3.1 mg/dL (2.7-4.5); Potassium 4.4 mmol/L (3.3-5.1); Sodium Level 139 mmol/L (133-145)
--- NOTE | 2024-07-13 08:08 | PN.SURG_ITS ---
Subjective Subjective Patient evaluated resting comfortably in bed. he notes some abdominal cramping. He denies any nausea, vomiting. He had a small bowel follow-through yesterday which demonstrated contrast within the colon in 1 hour and no ileus or obstruction noted. Objective Data Objective Data Vital Signs: Vital Signs Temp Pulse Resp BP Pulse Ox O2 Del Method 98.0 F 98 18 156/62 H 96 Room Air 07/13/24 02:17 07/13/24 02:17 07/13/24 02:17 07/13/24 02:17 07/13/24 02:17 07/13/24 02:17 Oxygen Delivery Method Room Air Weight: 152 lb 12.485 oz Body Mass Index (BMI) 21.3 Intake & Output: Intake and Output for Last 24 Hours 07/11/24 07/12/24 07/13/24 23:59 23:59 23:59 Intake Total 1476.25 / 1476.25 1707.50 / 1707.50 Balance 1476.25 / 1476.25 1707.50 / 1707.50 Lab / Micro Data 07/13/24 07:28 07/13/24 07:28 Labs: Laboratory Results - last 24 hr 07/12/24 11:26: POC Glucose 236 H 07/12/24 17:15: POC Glucose 99 07/12/24 23:07: POC Glucose 98 07/13/24 05:53: POC Glucose 101 07/13/24 07:28: WBC 6.4, RBC 2.37 L, Hgb 8.5 L, Hct 26.5 L, MCV 111.8 H, MCH 35.9 H, MCHC 32.1, RDW Std Deviation 63.7 H, RDW Coeff of [place] 15.6 H, Plt Count 165, MPV 11.0, Immature Gran % (Auto) 0.300, Neut % (Auto) 74.2 H, Lymph % (Auto) 16.6 L, [place] % (Auto) 6.6, Eos % (Auto) 1.4, Baso % (Auto) 0.9, Absolute Neuts (auto) 4.8, Absolute Lymphs (auto) 1.06, Nucleated RBC % 0, Sodium 139, Potassium 4.4, Chloride 107, Carbon Dioxide 21.2, Anion Gap 11, BUN 8, Creatinine 1.19, Estim Creat Clear Calc 63.90, Est GFR (MDRD) Non-Af 69, B UN/Creatinine Ratio 6.7 L, Glucose 96, Calcium 8.3, Phosphorus 3.1, Magnesium 2.0 Radiography Diagnostic Testing: Radiology Impression Abdomen X-Ray 07/12/24 09:37 IMPRESSION: Limited imaging chest demonstrates left basilar airspace disease, and with questionable small left pleural effusion. No evidence of pneumoperitoneum. Prominent bilateral arterial calcification is seen, most apparent in the iliac arteries. Air and stool are seen throughout the large bowel and rectum. Multiple air-filled but nondilated small bowel loops are noted. No mass or mass effect is seen. Reading Location: [address] Small Bowel X-Ray 07/12/24 14:30 IMPRESSION: No evidence of ileus or obstruction. Reading Location: [id number] Physical Exam GI GI Narrative: Abdomen- soft, nontender, hypoactive bowel sounds Assessment & Plan Assessment/Plan (1) Abdominal pain: (2) Partial bowel obstruction: PLAN: Plan I am following this patient in conjunction with Dr. Miranda in Dr. Fontanez's absence. SBFT was normal yesterday Start clear liquids and advance as tolerated No surgical intervention being recommended Patient having bowel function We will sign off at this time Please consult our service if patient's symptoms change. Thank you Charges/Coding Visit Charges Inpatient E&M: 14361 Subs Hosp L2
[2024-07-13 09:15] VITALS: BP 144/99; PULSE 102; RESP 18; TEMP 37.4; O2SAT 97
[2024-07-13 09:21] VITALS: PULSE 102
[2024-07-13] MEDS: Metoprolol(XL)Succ 25 MG Tablet 12.5 MG PO (09:21)
[2024-07-13] MEDS: Furosemide 20 MG Tablet PO (09:21)
[2024-07-13] MEDS: Spironolactone 25 MG Tablet PO (09:21)
[2024-07-13] MEDS: Empagliflozin 25 MG Tablet PO (09:21)
[2024-07-13] MEDS: Enoxaparin 40 MG/0.4 ML Syringe SC (09:22)
[2024-07-13] MEDS: Pantoprazole Sodium 40 MG in 0.9% Normal Saline (100mL MB+) 100 ML 330 MG IV (09:24)
[2024-07-13] MEDS: Gabapentin 300 MG Capsule PO (09:24)
[2024-07-13] MEDS: 0.9% Normal Saline (250mL Bag) 250 ML 15 ML IV (09:44)
--- NOTE | 2024-07-13 10:23 | PCM.PN.HOSP ---
Reason for Visit Reason for Visit: Diagnoses Partial intestinal obstruction, unspecified as to cause (07/11/24) Unspecified abdominal pain (07/11/24) Nausea with vomiting, unspecified (07/11/24) Suicidal ideations (07/11/24) Subjective Subjective Patient underwent small bowel follow-through which did not show any ileus no obstruction.. Plan is to advance diet to regular consistency as tolerated. Patient is also medically stable to be evaluated by crisis Objective Data Objective Data Vital Signs: Vital Signs Temp Pulse Resp BP Pulse Ox O2 Del Method 99.4 F H 102 H 18 144/99 H 97 Room Air 07/13/24 09:15 07/13/24 09:21 07/13/24 09:15 07/13/24 09:15 07/13/24 09:15 07/13/24 09:15 Oxygen Delivery Method Room Air Weight: 69.3 kg Body Mass Index (BMI) 21.3 Intake & Output: Intake and Output for Last 24 Hours 07/11/24 07/12/24 07/13/24 23:59 23:59 23:59 Intake Total 1476.25 / 1476.25 1707.50 / 1707.50 104.5 / 104.5 Balance 1476.25 / 1476.25 1707.50 / 1707.50 104.5 / 104.5 Lab / Micro Data 07/13/24 07:28 07/13/24 07:28 Labs: Laboratory Results - last 24 hr 07/12/24 11:26: POC Glucose 236 H 07/12/24 17:15: POC Glucose 99 07/12/24 23:07: POC Glucose 98 07/13/24 05:53: POC Glucose 101 07/13/24 07:28: WBC 6.4, RBC 2.37 L, Hgb 8.5 L, Hct 26.5 L, MCV 111.8 H, MCH 35.9 H, MCHC 32.1, RDW Std Deviation 63.7 H, RDW Coeff of Kalpana 15.6 H, Plt Count 165, MPV 11.0, Immature Gran % (Auto) 0.300, Neut % (Auto) 74.2 H, Lymph % (Auto) 16.6 L, [place] % (Auto) 6.6, Eos % (Auto) 1.4, Baso % (Auto) 0.9, Absolute Neuts (auto) 4.8, Absolute Lymphs (auto) 1.06, Nucleated RBC % 0, Sodium 139, Potassium 4.4, Chloride 107, Carbon Dioxide 21.2, Anion Gap 11, BUN 8, Creatinine 1.19, Estim Creat Clear Calc 63.90, Est GFR (MDRD) Non-Af 69, BUN/Creatinine Ratio 6.7 L, Glucose 96, Calcium 8.3, Phosphorus 3.1, Magnesium 2.0 Radiography Diagnostic Testing: Radiology Impression Abdomen X-Ray 07/12/24 09:37 IMPRESSION: Limited imaging chest demonstrates left basilar airspace disease, and with questionable small left pleural effusion. No evidence of pneumoperitoneum. Prominent bilateral arterial calcification is seen, most apparent in the iliac arteries. Air and stool are seen throughout the large bowel and rectum. Multiple air-filled but nondilated small bowel loops are noted. No mass or mass effect is seen. Reading Location: [address] Small Bowel X-Ray 07/12/24 14:30 IMPRESSION: No evidence of ileus or obstruction. Reading Location: [id number] Physical Exam Narrative GENERAL: cooperative HEENT: Atraumatic; normocephalic EYES; Anicteric, Normal Conjunctiva NECK; supple, normal thyroid, RESPIRATORY: Diminished to auscultation CARDIOVASCULAR: Regular S1 S2, GI: soft, normoactive bowel sounds, : No Renal angle tenderness; EXTREMITIES: No edema, no clubbing, MUSCULOSKELETAL: no muscle wasting NEURO: Awake; no lateralizing signs. SKIN: No Rash PSYCH; Flat affect Assessment & Plan Assessment/Plan (1) Abdominal pain: (2) Nausea & vomiting: (3) Suicidal ideation: PLAN: Plan Patient is a 63-year-old gentleman presented with abdominal pain imaging studies demonstrated partial small bowel obstruction versus ileus with significant constipation admitted to regular nursing floor for further management 1. Acute on chronic abdominal pain secondary to ileus versus partial small bowel obstruction - CT abdomen pelvis shows developing partial small bowel obstruction versus ileus with significant constipation and stable bilateral pleural effusions. Patient admitted to regular nursing floor treatment initiated with Fleet enemas. Patient did have some bowel movement. Repeat KUB ordered this a.m. for response to therapy ? 07/13/2024;Patient underwent small bowel follow-through which did not show any ileus no obstruction.. Plan is to advance diet to regular consistency as tolerated 2. Suicidal ideation ? Patient was placed under suicide precaution with consultation placed to the crisis center ? 07/13/2024 patient stable to be evaluated by the crisis center 3. Chronic abdominal pain?secondary to chronic pancreatitis ? Patient is on Creon did continue 4. Anemia ? Secondary to chronic disorder monitoring H&H and transfuse if patient becomes symptomatic or hemoglobin falls below 7 6. Acute kidney injury ? Patient creatinine on 07/05/2024 was 1.70 improved with hydration creatinine down to 1.12 7.? Diabetes mellitus type II -Continue patient on his home regimen in addition to Accu-Cheks before meals and at bedtime with sliding scale coverage 8.? Sick sinus syndrome ? Status post pacemaker placement 9.? History of ascending aortic dissection ? Status post repair 10.? Valvular heart disease - history of aortic valve replacement with bioprosthetic material 11.? Hypertension - Blood pressure low on admission antihypertensives held 12. Dyslipidemia -Patient is on statin therapy, continued at home dose 13. GERD ? On famotidine 14. Physical deconditioning - Requested for PT OT eval and psychiatric social worker supervisor to assist with discharge planning 15. Tobacco dependence ? Counseled on cessation, offered nicotine patch for tobacco cravings 16. Chronic congestive heart failure with reduced ejection fraction ? Patient is on furosemide Aldactone as well as metoprolol continued. Patient had a 2D echo performed on 07/01/2024 which did show The estimated ejection fraction is 35-40 %. Moderate LV systolic dysfunction with global LV hypokinesia. 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 Mean aortic valve gradient 40.2 mmHg. Pacemaker lead seen in the right ventricle Trivial MR Transmitral Doppler flow revealed impaired relaxation of LV. 07/13/2024; patient remains compensated 17. DVT prophylaxis -Enoxaparin 40 daily Time spent in the patient's overall evaluation,decision-making process, review of diagnostic data, adjustment of management, discussion with other providers, nursing nursing and ancillary staff involved in patient's care documentation, 38 Minutes Charges/Coding Visit Charges Inpatient E&M: 00516 Subs Hosp L2
--- NOTE | 2024-07-13 10:26 | CASEMGMT ---
Addendum entered by Rosalia Robins 07/13/24 11:29: BLANKA confirmed with Marcia via telephone that fax was received and someone will be assessing pt as their scheduling allows. BLANKA remains available to follow. MAEGAN Simpson Original Note: Social Work- BLANKA received notice that pt is medically stable and able to be evaluated by crisis. BLANKA faxed documentation to [facility]. BLANKA coordinated with physician and bedside nurse. BLANKA remains available to follow. MAEGAN Simpson
--- NOTE | 2024-07-13 10:29 | CASEMGMT ---
Addendum entered by Rosario Jacques 07/13/24 12:13: Pt was provided w/[facility] contact info and address. Addendum entered by Rosario Jacques 07/13/24 12:08: Local PCP list in -network w/pt's insurance provided by [facility]. Most of the physicians listed are not located in [place] and pt prefers to have someone closer. Call placed to Dr Srinivasan's office who is in [place]. Dr Srinivasan is not taking new pt's at this time. Call placed to the other [facility] location. They do not have any openings for new pt's until December. Call placed to [facility]. They are taking new pt's and Dr Call has an opening on Monday 07/17. Pt made aware and voices appreciation and states would take that appt. He states he will work on finding transportation there. He states, if for some reason he is not able to find transportation, he will call them to re-schedule. Original Note: ELIS KEATING NOTE: ELIS KEATING informed pt would like a new PCP. He states he has been going to a PCP, SUSAN Shine, in [place], but states has been having difficulty getting response from the office. Pt made aware a list will be provided of local PCP's. He voices appreciation. Darleen BOLIVAR RN, CM
[2024-07-13] MEDS: Insulin Lispro 100 UNIT/ML INSULN.PEN SC ×3 (11:53→22:33)
[2024-07-13 12:13] LABS: Bedside Glucose 270 mg/dL (74-106)
--- NOTE | 2024-07-13 13:15 | CASEMGMT ---
Social Work- Pt was assessed by Teresa, [facility]. Teresa feels that pt is appropriate to discharge home. Copy of pt safety plan placed on chart. Pt is going to call a cousin for transport home. Pt reports no other needs at this time. MAEGAN Simpson
[2024-07-13 14:20] VITALS: BP 130/99; PULSE 102; RESP 16; TEMP 36.9; O2SAT 94
[2024-07-13] MEDS: oxyCODONE 5 MG Tablet 10 MG PO ×2 (14:23→22:41)
[2024-07-13 16:30] LABS: Bedside Glucose 190 mg/dL (74-106)
[2024-07-13 20:20] VITALS: BP 113/87; PULSE 89; RESP 16; TEMP 36.9; O2SAT 92
[2024-07-13] MEDS: MELATONIN 3 MG TABLET PO (22:33)
[2024-07-13] MEDS: Pantoprazole Sodium 40 MG Tablet PO (22:33)
[2024-07-14 00:33] LABS: Bedside Glucose 205 mg/dL (74-106)
[2024-07-14 02:54] VITALS: BP 104/77; PULSE 87; RESP 16; TEMP 37; O2SAT 96
[2024-07-14 03:30] VITALS: BMI 20.1
[2024-07-14] MEDS: Insulin Lispro 100 UNIT/ML INSULN.PEN SC ×2 (06:30→11:33)
[2024-07-14 06:50] LABS: Bedside Glucose 253 mg/dL (74-106)
[2024-07-14 07:55] VITALS: BP 122/84; PULSE 79; RESP 16; TEMP 37.1; O2SAT 95
--- NOTE | 2024-07-14 08:39 | DS.PCM_ITS ---
Providers Date of Admission: 07/11/24 Date of Discharge: 07/14/24 Primary Care Physician: Sigrid Call [facility], DO Consultations 07/11/24 16:39 Consult: General Surgery Routine Consulting Provider: Denys Fontanez Reason for Consult: Ileus vs pSBO EMERGENT Consult: No MD Notified: Yes Date Notified: 07/11/24 Time Notified: 14:08 Method of Notification: Text Reason For Visit: ILEUS VS PSBO Diagnosis Discharge Diagnosis (1) Abdominal pain: Status: Acute Code(s): R10.9 - Unspecified abdominal pain (2) Nausea & vomiting: Status: Acute Code(s): R11.2 - Nausea with vomiting, unspecified (3) Suicidal ideation: Status: Acute Code(s): R45.851 - Suicidal ideations Plan Patient is a 63-year-old gentleman presented with abdominal pain imaging studies demonstrated partial small bowel obstruction versus ileus with significant constipation admitted to regular nursing floor for further management 1. Acute on chronic abdominal pain secondary to ileus versus partial small bowel obstruction - CT abdomen pelvis shows developing partial small bowel obstruction versus ileus with significant constipation and stable bilateral pleural effusions. Patient admitted to regular nursing floor treatment initiated with Fleet enemas. Patient did have some bowel movement. Repeat KUB ordered this a.m. for response to therapy ? 07/13/2024;Patient underwent small bowel follow-through which did not show any ileus no obstruction.. Plan is to advance diet to regular consistency as tolerated ? 07/14/2024; patient tolerated oral diet. Decision was made to discharge patient 2. Suicidal ideation ? Patient was placed under suicide precaution with consultation placed to the crisis center ? 07/13/2024 patient stable to be evaluated by the crisis center ? 07/14/2024; patient was seen in consultation by the crisis center safety plan was written for the patient 3. Chronic abdominal pain?secondary to chronic pancreatitis ? Patient is on Creon did continue 4. Anemia ? Secondary to chronic disorder monitoring H&H and transfuse if patient becomes symptomatic or hemoglobin falls below 7 6. Acute kidney injury ? Patient creatinine on 07/05/2024 was 1.70 improved with hydration creatinine down to 1.12 7.? Diabetes mellitus type II -Continue patient on his home regimen in addition to Accu-Cheks before meals and at bedtime with sliding scale coverage 8.? Sick sinus syndrome ? Status post pacemaker placement 9.? History of ascending aortic dissection ? Status post repair 10.? Valvular heart disease - history of aortic valve replacement with bioprosthetic material 11.? Hypertension - Blood pressure low on admission antihypertensives held 12. Dyslipidemia -Patient is on statin therapy, continued at home dose 13. GERD ? On famotidine 14. Physical deconditioning - Requested for PT OT eval and protective services social worker to assist with discharge planning 15. Tobacco dependence ? Counseled on cessation, offered nicotine patch for tobacco cravings 16. Chronic congestive heart failure with reduced ejection fraction ? Patient is on furosemide Aldactone as well as metoprolol continued. Patient had a 2D echo performed on 07/01/2024 which did show The estimated ejection fraction is 35-40 %. Moderate LV systolic dysfunction with global LV hypokinesia. 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 Mean aortic valve gradient 40.2 mmHg. Pacemaker lead seen in the right ventricle Trivial MR Transmitral Doppler flow revealed impaired relaxation of LV. 07/13/2024; patient remains compensated 17. DVT prophylaxis -Enoxaparin 40 daily Time spent in the patient's overall evaluation,decision-making process, review of diagnostic data, adjustment of management, discussion with other providers, nursing nursing and ancillary staff involved in patient's care documentation, 35 Minutes Medications at Discharge Home Medications atorvastatin 10 mg tablet 10 mg PO DAILY CHOLESTEROL 10/17/20 dapagliflozin propanediol 10 mg tablet (Farxiga) 10 mg PO DAILY DIABETES 09/30/21 multivitamin 1 tab PO DAILY SUPPLEMENT 11/11/21 gabapentin 300 mg capsule 300 mg PO DAILY NEUROPATHY 11/14/22 metformin 500 mg tablet,extended release 24 hr 500 mg PO BID DIABETES 11/15/22 L.acidophil,salivari-Bifido bifidum-Strep thermoph 175 mg capsule 2 cap PO BID #0 caps 05/20/23 folic acid 1 mg tablet 1 mg PO DAILY@0800 supplement #0 tabs 05/20/23 thiamine HCl (vitamin B1) 100 mg tablet (Vitamin B-1) 100 mg PO DAILYCM vitamin #0 tabs 05/20/23 pantoprazole 40 mg tablet,delayed release 40 mg PO BID reflux #60 tabs 06/27/23 vcohkp-nkumalbt-yhzmjbj 24,000-76,000-120,000 unit capsule,delayed rel (Creon) 1 cap PO TIDCM #90 caps 06/28/24 ferrous sulfate 325 mg (65 mg iron) tablet (FeroSul) 325 mg PO DAILY supplement 06/30/24 furosemide 20 mg tablet 20 mg PO DAILY 30 days #30 tabs 07/06/24 metoprolol succinate 25 mg tablet,extended release 24 hr 12.5 mg (1/2 x 25 mg) PO DAILY 30 days #15 tabs 07/06/24 spironolactone 25 mg tablet 25 mg PO DAILY 30 days #30 tabs 07/06/24 tramadol 50 mg tablet 50 mg PO Q8H PRN pain 3 days #9 tabs 07/06/24 Physical Exam Narrative GENERAL: cooperative HEENT: Atraumatic; normocephalic EYES; Anicteric, Normal Conjunctiva NECK; supple, normal thyroid, RESPIRATORY: Diminished to auscultation CARDIOVASCULAR: Regular S1 S2, GI: soft, normoactive bowel sounds, : No Renal angle tenderness; EXTREMITIES: No edema, no clubbing, MUSCULOSKELETAL: no muscle wasting NEURO: Awake; no lateralizing signs. SKIN: No Rash PSYCH; Flat affect Weight / BMI Weight Weight: 65.6 kg Body Mass Index (BMI) 20.1 ABG / Lab / Microbiology Data 07/13/24 07:28 07/13/24 07:28 Laboratory: Laboratory Results - last 24 hr 07/13/24 11:50: POC Glucose 270 H 07/13/24 16:08: POC Glucose 190 H 07/13/24 22:27: POC Glucose 205 H 07/14/24 06:28: POC Glucose 253 H D/C Instructions Discharge Diet: 1800 Calorie Control Diet Discharge Activity: Return to Normal Activity Call your doctor if you observe: Fever of 101 or Higher, Shortness of breath, Fainting spells and Chest pain DC O2, CPAP, BIPAP Needs Home O2 Discharge instructions: No Meaningful Use Info Meaningful Use Meaningful Use Diagnoses (Choose all that apply): None applicable Ischemic Stroke Statin Dosing Therapy Reference: STATIN DOSE THERAPY REFERENCE: * Patients > 75 years receive moderate or high dose statin therapy. * Patients 75 years or YOUNGER should receive HIGH intensity statin dose unless contraindicated. You will be required to document reason for non-treatment if statin daily dose does not meet guidelines. HIGH DOSE STATIN THERAPY DAILY Atorvastatin > than or = to 40 mg Rosuvastatin > than or = to 20 mg Amlodipine + Atorvastatin > than or = to 2.5/40 mg Ezetimibe + Simvastatin 10/80 mg Simvastatin 80mg Discharge Plan Admission Admit Date/Time: 07/11/24 14:06 Attending Provider: Conrado Morel Primary Care Provider: Sigrid Call [facility] Consulting Providers: Denys Fontanez; Melonie De La Rosa Discharge Orders/Prescriptions Prescriptions: Continued atorvastatin 10 mg tablet 10 mg PO DAILY dapagliflozin propanediol [Farxiga] 10 mg Tablet 10 mg PO DAILY multivitamin Tablet 1 tab PO DAILY gabapentin 300 mg Capsule 300 mg PO DAILY metformin 500 mg tablet extended release 24 hr 500 mg PO BID Patient Comments: PT STATES THEY TAKE THIS ONCE DAILY. pantoprazole 40 mg tablet,delayed release (DR/EC) 40 mg PO BID Qty: 60 0RF Creon 24,000-76,000 -120,000 unit Capsule,Delayed Release(Dr/Ec) 1 cap PO TIDCM Qty: 90 1RF thiamine HCl (vitamin B1) [Vitamin B-1] 100 mg Tablet 100 mg PO DAILYCM Qty: 0 0RF L.acidoph,saliva-B.bif-S.therm 175 mg Capsule 2 cap PO BID Qty: 0 0RF folic acid 1 mg Tablet 1 mg PO DAILY@0800 Qty: 0 0RF ferrous sulfate [FeroSul] 325 mg (65 mg iron) tablet 325 mg PO DAILY furosemide 20 mg Tablet 20 mg PO DAILY 30 Days Qty: 30 2RF metoprolol succinate 25 mg Tablet Extended Release 24 Hr 12.5 mg PO DAILY 30 Days Qty: 15 2RF spironolactone 25 mg Tablet 25 mg PO DAILY 30 Days Qty: 30 2RF tramadol 50 mg tablet 50 mg PO Q8H PRN (Reason: pain) 3 Days Qty: 9 0RF Discontinued insulin lispro [Humalog KwikPen Insulin] 100 unit/mL Insulin Pen See Protocol subcut ACHS Qty: 0 0RF Protocol: 4. Sliding Scale Insulin High-Med Dosing Condition: 150-199 mg/dl = 2 units Condition: 200-259 mg/dl = 4 units Condition: 260-324 mg/dl = 6 units Condition: 325-374 mg/dl = 8 units Condition: 375-409 mg/dl = 10 units Condition: 410-449 mg/dl = 11 units Condition: Greater than 449 call physician Protocol Text: - Use for Total Daily Dose of Insulin 56-80 units - Patient who are insulin resistant or septic HIGH MEDIUM DOSING ALGORITHM Referrals / Follow Up: Sigrid Call DO [Primary Care Provider] - 07/17/24 10:00 am (Please arrive 15-20 min early to complete paperwork. ) Disposition Disposition (needs filled in before D/C Order can be placed): Home, Self Care Charges/Coding Visit Charges Inpatient E&M: 70871 Disch Hosp >30min
[2024-07-14] MEDS: Spironolactone 25 MG Tablet PO (09:44)
[2024-07-14 09:45] VITALS: PULSE 79
[2024-07-14] MEDS: Pantoprazole Sodium 40 MG Tablet PO (09:45)
[2024-07-14] MEDS: Furosemide 20 MG Tablet PO (09:45)
[2024-07-14] MEDS: Metoprolol(XL)Succ 25 MG Tablet 12.5 MG PO (09:45)
[2024-07-14] MEDS: Empagliflozin 25 MG Tablet PO (09:45)
[2024-07-14] MEDS: oxyCODONE 5 MG Tablet 10 MG PO (09:49)
[2024-07-14] MEDS: Gabapentin 300 MG Capsule PO (09:49)
--- NOTE | 2024-07-14 10:12 | CASEMGMT ---
Addendum entered by Rosario Jacques 07/14/24 11:30: Pt confirms he was able to get transportation set up through his insurance for the appt @ [facility] on Wednesday. Original Note: ELIS KEATING NOTE: Discharge order is in. ELIS CM to room. Pt resting in bed, RN @ bedside. Pt states his cousin will be coming to pick him up around 1 PM today. He denies having any concerns w/going home. Pt reminded about appt @ [facility] on Wednesday. He states he is not sure if he will be able to get transportation for that date/time, as he would want to set that up through his insurance. ELIS KEATING recommended he call this morning while awaiting his ride home and states he will do that. ELIS CM asked pt to notify ELIS KEATING if he has needs to change the appt to another date/time. Darleen BOLIVAR RN, CM
[2024-07-14 11:53] LABS: Bedside Glucose 235 mg/dL (74-106)
== END 2024-07-14 12:21 | disposition home or self-care (01) | DRG 247 ==
LOC: ED 14:46 → MS3 15:29
PROVIDERS: Admitting Provider Internal Medicine; Emergency Provider Emergency Medicine; PCP Family Medicine; Visit Provider Internal Medicine
DX: K56.600 Partial intestinal obstruction, unspecified as to cause (principal); D63.1 Anemia in chronic kidney disease; R45.851 Suicidal ideations; E11.22 Type 2 diabetes mellitus with diabetic chronic kidney disease; D53.9 Nutritional anemia, unspecified; N17.9 Acute kidney failure, unspecified; I13.0 Hypertensive heart and chronic kidney disease with heart failure and stage 1 through stage 4 chronic kidney disease, or unspecified chronic kidney disease; I50.22 Chronic systolic (congestive) heart failure; K70.30 Alcoholic cirrhosis of liver without ascites; I35.0 Nonrheumatic aortic (valve) stenosis; F10.11 Alcohol abuse, in remission; K86.1 Other chronic pancreatitis; E11.40 Type 2 diabetes mellitus with diabetic neuropathy, unspecified; E78.00 Pure hypercholesterolemia, unspecified; I25.10 Atherosclerotic heart disease of native coronary artery without angina pectoris; N18.2 Chronic kidney disease, stage 2 (mild); K21.9 Gastro-esophageal reflux disease without esophagitis; F17.210 Nicotine dependence, cigarettes, uncomplicated; Z79.4 Long term (current) use of insulin; I25.2 Old myocardial infarction; Z79.84 Long term (current) use of oral hypoglycemic drugs; Z91.199 Patient's noncompliance with other medical treatment and regimen due to unspecified reason; Z95.0 Presence of cardiac pacemaker; Z79.899 Other long term (current) drug therapy; Z95.3 Presence of xenogenic heart valve; Z87.898 Personal history of other specified conditions; R53.81 Other malaise
CPT/HCPCS: 74019; 74177; 74250; 80048; 80053; 80076; 80307; 81001; 82077; 82962; 83690; 83735; 84100; 85025; 99252; 99284; 99406; Q9967; A4216; G0463; J2405

== ENCOUNTER 2024-08-01 12:31 | Inpatient (IN) | payer MEDICAID, SELFPAY ==
[2024-08-01] VITALS (14 sets, daily range): BP systolic 109–147; BP diastolic 76–99; PULSE 63–118; RESP 12–22; TEMP 36.4–36.6; O2SAT 88–100; BMI 21.7; BMI 18.9
--- NOTE | 2024-08-01 14:58 | EKG12_ITS ---
Test Reason : Blood Pressure : */* mmHG Vent. Rate : 90 BPM Atrial Rate : 90 BPM P-R Int : 140 ms QRS Dur : 120 ms QT Int : 426 ms P-R-T Axes : 1 -21 74 degrees QTcB Int : 521 ms Sinus rhythm with Premature atrial complexes Right bundle branch block Abnormal ECG Confirmed by ZHAO FRANCISCO, KETTY ([id number]), technical editor MAILE BALDWIN ([id number]) on 08/02/2024 11:09:40 AM Referred By: Confirmed By: EKTTY CHURCHILL MD
--- NOTE | 2024-08-01 15:01 | EDS_ITS ---
HPI History of Present Illness Chief Complaint: Shortness of Breath Informant: patient Narrative Narrative: Patient is a 64-year-old male with history of AV replacement (bovine), HTN, chronic pancreatitis, heart failure with reduced ejection fraction, pleural effu sions and prior paracentesis, diabetes mellitus and pacemaker presenting for 3 days of worsening shortness of breath and leg swelling. Patient states that sometimes his belly swells and then he feels like he cannot catch his breath. He notes that he feels that he is not getting enough it is worse when he tries to pound. Denies associate chest pain any fevers. Also notes that he is at increased leg/ankle swelling. In addition he notes that for the past 3 to 4 days he has not had an appetite as had nausea. He states he will go to eat and then just spit it out. He states his last bowel movement was 4 to 5 days ago. He notes he has passed a small amount of gas throughout this time. In addition he has a wound on his right back that has been draining. He saw his primary care doctor today recommend he come to the ER for further evaluation. Patient was hospitalized at beginning this month for small bowel obstruction which ultimately was thought to be an ileus. Last month he reportedly had 2 paracentesis however chart review I only see 1 paracentesis on 06/26/2024 where they took out 2050 cc of straw-colored fluid. Cytology for this was negative for malignancy. GI note from 07/03/2024 for evaluation of ascites?needs a liver biopsy but that to be associated with chronic alcohol use. [facility] Medical History Malnutrition Pancytopenia Medically noncompliant Thrombocytopenia Chronic pancreatitis Macrocytosis associated with alcohol Ascites due to alcoholic cirrhosis Chronic diarrhea Chronic alcohol abuse Abdominal ascites MALIK (acute kidney injury) Seizures Alcoholic hepatitis Chronic pancreatitis Gastric wall thickening Alcohol dependence Anxiety Diabetes Pancreatitis Myocardial infarct Pacemaker AAA (abdominal aortic aneurysm) Admitted to alcohol detoxification center Alcohol abuse Hx of hypercholesterolemia History of diabetes mellitus Alcohol dependence Substance abuse Smoker Alcoholism Right bundle branch block (RBBB) Non-sustained ventricular tachycardia Thoracic aortic aneurysm SVT (supraventricular tachycardia) Ascending aortic dissection (~2005) Pure hypercholesterolemia Adrenal nodule Hiatal hernia Left carotid bruit Cardiac pacemaker in situ (~06/2016) Essential hypertension Pacemaker Sick sinus syndrome Tobacco use HTN (hypertension) Diabetes mellitus, type II Home Medications ?Medication ?Instructions ?Recorded ?Last Taken ?Type atorvastatin 10 mg tablet 10 mg PO DAILY CHOLESTEROL 0 10/17/20 07/31/24 History dapagliflozin propanediol 10 mg 10 mg PO DAILY DIABETE S 09/30/21 07/31/24 History tablet (Farxiga) multivitamin 1 tab PO DAILY SUPPLEMENT 07/31/24 History gabapentin 300 mg capsule 300 mg PO DAILY NEUROPATHY 1 07/31/24 History metformin 500 mg tablet,extended 500 mg PO DAILY DIABE COLLETTE 11/15/22 07/31/24 History release 24 hr folic acid 1 mg tablet 1 mg PO DAILY@0800 supplemen t #0 05/20/23 07/31/24 Rx tabs thiamine HCl (vitamin B1) 100 mg 100 mg PO DAILYCM vit padilla #0 tabs 05/20/23 07/31/24 Rx tablet (Vitamin B-1) pantoprazole 40 mg tablet,delayed 40 mg PO BID reflux #60 tabs 06/27/23 07/31/24 Rx release pcpqfj-qhveigvy-bjqdktm 1 cap PO TIDCM #90 caps /03/0407/31/24 Rx 24,000-76,000-120,000 unit capsule,delayed rel (Creon) ferrous sulfate 325 mg (65 mg 325 mg PO DAILY suppleme nt 06/30/24 07/31/24 History iron) tablet (FeroSul) furosemide 20 mg tablet 20 mg PO DAILY 30 days #30 t abs 07/06/24 07/31/24 Rx metoprolol succinate 25 mg 12.5 mg (1/2 x 25 mg) PO DA RASHEED 30 07/06/24 07/31/24 Rx tablet,extended release 24 hr days #15 tabs spironolactone 25 mg tablet 25 mg PO DAILY 30 days #30 tabs 07/06/24 07/31/24 Rx L.acidophil,salivari-Bifido 1 cap PO BID Probiotic 07/31/24 History bifidum-Strep thermoph 175 mg capsule Allergy/AdvReac Type Severity Reaction Status Date / Time No Known Allergies Allergy Verified 08/01/24 22:20 Family History Father CAD (coronary artery disease) Mother Dementia Surgical History H/O cardiac catheterization History of aortic aneurysm repair (~2016) History of cataract surgery History of hernia repair History of aortic valve replacement with bioprosthetic valve (~2016) H/O aortic valve replacement Social History household members: family housing: house Smoking Status: Current every day smoker tobacco type: cigarettes alcohol intake: current alcohol intake frequency: 0-2 drinks per day details: Reports currently ~ 2 tall boys daily. substance use type: former substance user caffeine: Yes Type: coffee Number of servings: 3 ROS ROS ED Constitutional Constitutional ED: Denies chills or fever(s) Cardiovascular Cardiovascular: Denies chest pain Respiratory/Chest Respiratory/Chest: Reports dyspnea and dyspnea on exertion; Denies cough or sputum Gastrointestinal Gastrointestinal: Reports constipation, nausea and other Details: Decreased appetite, abdominal distention ; Denies abdominal pain, diarrhea, melena or vomiting Musculoskeletal Musculoskeletal: Denies arthralgias or myalgias Integumentary Reports abscess Neurologic Neurologic: Reports weakness Hematologic/Lymphatic Hematologic/Lymphatic: Reports easy bleeding and easy bruising EXAM Physical Exam Const Vital Signs: 08/01/24 12:33 08/01/24 14:20 08/01/24 14:32 Temperature 97.8 F Temperature Source Temporal Pulse Rate 102 H 93 Respiratory Rate 18 22 H Respiratory Effort Short of Breath Respiratory Depth Normal Respiratory Pattern Normal Blood Pressure 117/84 H 146/97 H Blood Pressure Mean 95 113 Pulse Ox 97 93 Oxygen Delivery Method Room Air Room Air Room Air Oxygen Flow Rate (L/min) 08/01/24 16:00 08/01/24 18:51 08/01/24 20:00 Temperature Temperature Source Pulse Rate 97 118 H Respiratory Rate 12 18 Respiratory Effort Respiratory Depth Respiratory Pattern Blood Pressure 146/95 H 147/99 H Blood Pressure Mean 112 115 Pulse Ox 92 95 88 Oxygen Delivery Method Room Air Room Air Room Air Oxygen Flow Rate (L/min) 08/01/24 20:02 08/01/24 20:04 08/01/24 20:11 Temperature Temperature Source Pulse Rate 63 Respiratory Rate Respiratory Effort Respiratory Depth Respiratory Pattern Blood Pressure 143/95 H 123/80 H Blood Pressure Mean 111 94 Pulse Ox 96 Oxygen Delivery Method Nasal Cannula Oxygen Flow Rate (L/min) 2 08/01/24 20:30 Temperature Temperature Source Pulse Rate Respiratory Rate Respiratory Effort Respiratory Depth Respiratory Pattern Blood Pressure Blood Pressure Mean Pulse Ox 100 Oxygen Delivery Method Nasal Cannula Oxygen Flow Rate (L/min) 2 Positive well nourished and well developed General Appearance ED: well developed and NAD HEENT Reports dry mucous membranes Mouth ED: Yes dry mucous membranes Mouth: dry mucous membranes Eyes PERRL Neck supple and no JVD Chest Wall inspection of chest normal and palpation of chest normal Chest Narrative: Pacemaker present in the left lateral anterior chest Resp normal respiratory effort and clear to auscultation bilaterally Resp Narrative: Diminished breath sounds at the bases. Auscultation: Negative for rales or rhonchi Cardio regular rate and regular rhythm Cardio Narrative: Blowing systolic murmur present GI normal to inspection, nondistended, normoactive bowel sounds GI Narrative: No fluid wave appreciated. No tenderness present. Palpation: soft; Negative for tender, guarding or mass Extremity normal to inspection Extremity Narrative: Pain edema up to the knees present Neuro oriented x3 Sensorium / Orientation: alert Motor Exam: Negative for general weakness Psych mental status grossly normal Skin Skin Narrative: Ecchymosis noted on the bilateral forearms and very stages of healing. No jaundice appreciated. Patient has a 2 cm circumferential area of erythema/rubor of the right lateral thoracic back with spontaneous drainage of thick white material as well as purulence. No associated fluctuance. This is consistent with irritated sebaceous cyst. MDM MDM MDM Narrative Medical decision making narrative: Patient evaluated for worsening shortness of breath and dyspnea on exertion. Denies any chest pain but does feel some tightness. Differential includes CHF exacerbation, fluid overload, MALIK, pulmonary emboli, electrolyte abnormality, hypoproteinemia/malnutrition and less likely pneumonia. CBC obtained which shows a normal white blood cell count. He has anemia with hemoglobin Nixon 0.0 but this is actually significantly improved compared to what he was at the beginning of the month. D-dimer is elevated at 1.39 and CTA of the chest is added on. CT of the abdomen pelvis IV contrast is ordered given he is reporting abdominal discomfort. Bicarb is low at 18.6 with a mildly elevated anion gap. His glucose is minimally elevated at 159 for nonfasting glucose. His phosphorus and magnesium are normal. AST is mildly elevated at 48 but ALT is normal. Do not think there is primary liver pathology at this time. His BNP is significantly elevated at 41,328 which is almost double what it was a month ago. He is not having any chest pain and EKG does not show ACS so I do not think he requires troponin level at this time. Initial chest x-ray shows bilateral pleural effusions with questionable opacity cannot exclude pneumonia. This is reviewed by myself as well as radiology. CTA of the chest shows no PE, worsening pleural effusions and tiny linear hyperdensity of the aortic edge which could be artifact or dissection. Patient has a history of aortic aneurysm repair and aortic valve replacement. I spoke with cardiothoracic surgery and cardiac fellow at [facility], Dr. Callahan and , who do not think this is an acute dissection. I received a call back from Dr. Callahan who states he reviewed the imaging with their head radiologist and they compared this to imaging in 2017 and these findings were felt to be chronic and unchanged. No acute intervention from a cardiothoracic standpoint is needed. Because of this, patient will be admitted here for diuresis and CHF exacerbation. Patient additionally was given a dose of labetalol as he became more hypertensive and tachycardic in the emergency room and initially was given Tylenol and then a dose of fentanyl for headache and muscle cramps. Case discussed with hospitalist, Dr. Aguayo. Patient does not have a fever, leukocytosis and I do not think there is a pneumonia. Do not think he requires antibiotics at this time Lab Data Labs: Laboratory Results - last 24 hr 08/01/24 15:20 WBC 5.4 RBC 3.08 L Hgb 11.0 L Hct 34.0 L MCV 110.4 H MCH 35.7 H MCHC 32.4 RDW Std Deviation 58.4 H RDW Coeff of Kalpana 14.3 Plt Count 189 MPV 11.9 Immature Gran % (Auto) 0.400 Neut % (Auto) 73.3 H Lymph % (Auto) 16.1 L Bonner % (Auto) 8.0 Eos % (Auto) 0.9 Baso % (Auto) 1.3 H Absolute Neuts (auto) 4.0 Absolute Lymphs (auto) 0.87 Nucleated RBC % 0 D-Dimer Quant (PE/DVT) 1.39 H* Sodium 137 Potassium 3.8 Chloride 103 Carbon Dioxide 18.6 L Anion Gap 16 H BUN 9 Creatinine 1.17 Est GFR (MDRD) Non-Af 70 BUN/Creatinine Ratio 7.7 L Glucose 159 H Calcium 8.4 Phosphorus 2.8 Magnesium 2.2 Total Bilirubin 0.37 AST 48 H ALT 20 Alkaline Phosphatase 121 [place] [address] H Total Protein 6.3 Albumin 3.0 L Globulin 3.3 Albumin/Globulin Ratio 0.9 Lipase 9 L Radiography Diagnostic Testing: Clinical Impression(s) from Imaging Studies Chest X-Ray 08/01/24 15:30 IMPRESSION: Mild bibasilar pleural effusions. Bilateral lower lobe opacities not excluded with residual opacity within the left lower lobe. Reading Location: [id number] Abdomen/Pelvis CT 08/01/24 16:40 IMPRESSION: CHEST: 1. No evidence of pulmonary embolism. 2. Tiny linear hypodensity at the aortic arch, possibly artifactual related to motion or blood flow, though dissection could appear similar. Consider Vascular Surgery consultation. Repeat imaging could be performed with ECG gating. Of note, the ascending thoracic aorta measures 4.0 cm in diameter. 3. Ijwkmepk-mb-xeygn pleural effusions bilaterally, slightly increased compared to CT on 07/11/2024. Bibasilar consolidation may represent compressive atelectasis, though infection could appear similar. ABDOMEN AND PELVIS: 1. Mucosal hyperenhancement with mild wall thickening involving the stomach through jejunum, as may be seen with gastroenteritis, which could be of infectious, inflammatory, or ischemic etiology. 2. Hepatic steatosis. Reading Location: [id number] Chest CTA 08/01/24 16:40 IMPRESSION: CHEST: 1. No evidence of pulmonary embolism. 2. Tiny linear hypodensity at the aortic arch, possibly artifactual related to motion or blood flow, though dissection could appear similar. Consider Vascular Surgery consultation. Repeat imaging could be performed with ECG gating. Of note, the ascending thoracic aorta measures 4.0 cm in diameter. 3. Sjwosptw-jd-oyhft pleural effusions bilaterally, slightly increased compared to CT on 07/11/2024. Bibasilar consolidation may represent compressive atelectasis, though infection could appear similar. ABDOMEN AND PELVIS: 1. Mucosal hyperenhancement with mild wall thickening involving the stomach through jejunum, as may be seen with gastroenteritis, which could be of infectious, inflammatory, or ischemic etiology. 2. Hepatic steatosis. Reading Location: [id number] Rhythm Strip Rhythm Strip: Sinus Rhythm Rate: 90 Ectopy: PAC(s) EKG Initial EKG: Attestation: I personally reviewed and interpreted this EKG as follows: Interpretation: Sinus Rhythm Comments: Normal sinus rhythm at a rate of 90 bpm with PACs Right bundle izzy block Normal ST segments Normal QRS Mildly prolonged QTc of 521 Compared to prior EKG on 06/25/2024, no significant change house attendant Discussion w/another healthcare provider: Hospitalist and Refrigeration Plant Operator (Cardiothoracic surgery at [facility]) Discharge Plan Dx/Rx/DC Orders Clinical Impression: Acute HFrEF (heart failure with reduced ejection fraction), HTN (hypertension), H/O aortic valve replacement, Pleural effusion Disposition Disposition: Acute Care Hospital [facility] Discharge Date/Time: 08/01/24 21:53
--- NOTE | 2024-08-01 15:30 | RAD_ITS ---
PROCEDURE: CHEST PA AND LATERAL 08/01/2024 REASON FOR EXAM: SOB TECHNIQUE: CHEST PA AND LATERAL COMPARISON: 06/30/2024 FINDINGS: Left chest pacer. Median sternotomy wires. Cardiac valve repair. Calcified aortic arch. Mild pulmonary vascular congestion. Mild bibasilar pleural effusions. Bilateral lower lobe opacities not excluded with residual opacity within the left lower lobe. Bibasilar subsegmental atelectasis. No pneumothorax. Stable mild cardiomegaly. No acute fractures. RAD/Chest PA and Lateral IMPRESSION: Mild bibasilar pleural effusions. Bilateral lower lobe opacities not excluded with residual opacity within the left lower lobe. Reading Location: [id number]
[2024-08-01 16:00] LABS: Absolute Lymphocyte Count 0.87 X10^3/uL (0.83-4.51); Basophil# 0.07 X10^3/uL; Basophil% 1.3 % (0-1); Eosinophil# 0.05 X10^3/uL; Eosinophils% 0.9 % (0-5); Lymphocyte # 0.87 X10^3/ul (0.83-4.51); Lymphocyte % 16.1 % (19-41); Mean Corp Hgb Conc 32.4 g/dL (32-36); Mean Corpuscular Hgb 35.7 pg (27.0-32.0); Mean Corpuscular Volume 110.4 fL (80-94); Mean Platelet Vol. 11.9 fl (6.2-12.0); Monocyte# 0.43 X10^3/uL; NRBC Flagged by Analyzer 0 % (0-5); Neutrophil # 3.95 X10^3/uL (2.7-7.7); Neutrophil % 73.3 % (47-70); Platelet Count 189 K/mm3 (150-450); RBC Distribution Width CV 14.3 % (11.6-14.6); RBC Distribution Width SD 58.4 fl (35.1-43.9); Red Blood Count 3.08 M/mm3 (4.6-6.2); White Blood Count 5.4 K/mm3 (4.4-11.0)
[2024-08-01 16:26] LABS: Lipase 9 U/L (13-75)
[2024-08-01 16:38] LABS: D-Dimer Quantitative (DVT/PE) 1.39 FEU/ug/m (0.27-0.49)
--- NOTE | 2024-08-01 16:40 | CT_ITS ---
PROCEDURE: ABDOMEN/PELVIS W IV CONT ONLY; CTA CHEST W/WO CONTRAST 08/01/2024 REASON FOR EXAM: ABDOMINAL PAIN, NAUSEA, DISTENTION; SOB, ELEVATED DIMER TECHNIQUE: ABDOMEN/PELVIS W IV CONT ONLY; CTA CHEST W/WO CONTRAST Coronal and Sagittal reconstruction series were provided. 3D reformats were prepared and reviewed One or more dose reduction techniques were used (e.g., Automated exposure control, adjustment of the mA and/or kV according to patient size, use of iterative reconstruction technique. RADIATION DOSE SUMMARY: CTDlvol: 10.4 mGy DLP: 881 mGycm COMPARISON: Small bowel series on 07/12/2024, CT abdomen and pelvis 07/12/2019 FINDINGS: CHEST: Lymph nodes: No significant thoracic lymphadenopathy. Heart: Left chest cardiac device with leads terminating in the right atrium and right ventricle. Borderline enlarged. Prosthetic aortic valve. Thoracic Aorta: Ascending thoracic aorta measures up to 4.0 cm in diameter, with hypodense thrombus at the periphery. There is a tiny linear hypodensity along the medial aspect of the aortic arch (coronal image 143). Pulmonary Vessels: No evidence of acute pulmonary emboli through the major segmental branches. The main pulmonary artery measures 3.1 cm in diameter. Lungs and Airways: Bibasilar consolidation. Mild apical predominant centrilobular and paraseptal emphysema. Pleura: Puytmxjx-uc-gqjal pleural effusions bilaterally, slightly increased from 07/11/2024. Bones: Postoperative changes from median sternotomy. ABDOMEN AND PELVIS: Liver: Hypoattenuating. Subcentimeter hypodense lesions are unchanged and too small to characterize. Gallbladder: Mildly hydropic without radiodense stones. Spleen: Normal size. Pancreas: Atrophic with calcifications, suggestive of chronic pancreatitis. Adrenals: Unremarkable Kidneys: No hydronephrosis or stones. Bladder: Unremarkable Reproductive Organs: Prostatic calcifications. Bowel: There is mucosal hyperenhancement and mild wall thickening involving the stomach and the duodenum and jejunum of the small bowel. No significant bowel dilation. Normal appendix. Lymph nodes: No suspicious lymph node enlargement. Vasculature: Extensive aortic atherosclerosis with fusiform ectasia measuring up to 2.2 cm, unchanged. Bones: Degenerative changes of the spine. Vertebral body hemangioma of L4 is unchanged. Soft tissues: Unremarkable. CT/Abdomen/Pelvis W IV Cont ONLY IMPRESSION: CHEST: 1. No evidence of pulmonary embolism. 2. Tiny linear hypodensity at the aortic arch, possibly artifactual related to motion or blood flow, though dissection could appear similar. Consider Vascular Surgery consultation. Repeat imaging could be performed with ECG gating. Of note, the ascending thoracic aorta measures 4.0 cm in diameter. 3. Wnlnjoae-uz-ncdvx pleural effusions bilaterally, slightly increased compare d to CT on 07/11/2024. Bibasilar consolidation may represent compressive atelectasis, though infection could appear similar. ABDOMEN AND PELVIS: 1. Mucosal hyperenhancement with mild wall thickening involving the stomach th rough jejunum, as may be seen with gastroenteritis, which could be of infectious, inflammatory, or ischemic etiolo gy. 2. Hepatic steatosis. Reading Location: [id number]
[2024-08-01 16:41] LABS: ALB/GLOB Ratio 0.9 RATIO (0.9-2.4); AST(SGOT) 48 U/L (<=37); Alanine Aminotransfer ALT/SGPT 20 U/L (<=46); Alkaline Phosphatase 121 U/L (40-129); Anion Gap 16 (5-15); BUN 9 mg/dL (4-19); BUN/Creat Ratio 7.7 RATIO (10-20); Calcium,Total 8.4 mg/dL (7.6-11.0); Carbon Dioxide 18.6 mmol/L (21.0-32.0); Chloride 103 mmol/L (98-108); Creatinine, Serum 1.17 mg/dL (0.70-1.20); EST Glomerular Filtration Rate 70 (>60); Globulin 3.3 g/dL (2.2-4.2); Glucose 159 mg/dL (70-99); Potassium 3.8 mmol/L (3.3-5.1); Pro- Brain NATRIURETIC PEPTIDE 41328 pg/mL (<=900); Protein, Total 6.3 g/dL (5.9-8.4); Sodium Level 137 mmol/L (133-145); Total Bilirubin 0.37 mg/dL (0.00-1.30)
[2024-08-01] MEDS: Labetalol 20 MG/4 ML Vial 10 MG IV (19:58)
[2024-08-01] MEDS: Furosemide 20 MG/2 ML VIAL IV (20:00)
[2024-08-01] MEDS: fentaNYL 100 MCG/2 ML Ampul 50 MCG IV (20:01)
--- NOTE | 2024-08-01 20:44 | PCM.HP.STD ---
HPI - General General Date of Admission: 08/01/24 Date of Service: 08/01/24 Chief Complaint: Dyspnea, increased edema, weight gain, orthopnea. HPI Narrative The patient is a 64 y/o M w/ PMHx: Chronic macrocytic anemia, Diabetes mellitus type II, Hx sick sinus syndrome s/p pacemaker placement, Hx Ascending aortic dissection s/p repair, Valvular heart disease s/p AVR repairs, HTN, HLD, GERD, History of EtOH abuse with alcoholic liver cirrhosis/hepatomegaly with history of chronic pancreatitis, Remote history fo heroin abuse, Nonobstructive CAD, GERD, Tobacco use who presents to the [facility] ED on 08/02/2024 with history of 3 days of significantly worsening dyspnea, lower extremity swelling, orthopnea, weight gain with inability to catch his breath worse with activity with poor oral intake with nausea without emesis with last bowel movement possibly 4 days previous noted to be passing gas but constipated prompting eventual ED evaluation to be cautious. Workup in the ED included T97.8, heart rate 102, BP 117/84, respiratory rate 18, 97% on room air eventually desaturating down to 88% on room air with repeat 96% on 2 L nasal cannula, CBC with WC 5.4, hemoglobin, MCV 110.4, platelet 189 without marked left shift, D-dimer 1.39, CMP with At 18.6, anion gap 16, BUN/creatinine 9/1.17, GFR 70, glucose 159, AST 48, NT proBNP 41,328, lipase 9, chest x-ray with mild basilar pleural effusion, bilateral lower lobe opacities not excluded with residual opacity within the left lower lobe, CT chest/abdomen/pelvis with contrast with no evidence of pulmonary embolism, tiny linear hyperdensity at the aortic arch possibly artifactual related to motion or blood flow though dissection could appear similar, ascending thoracic aorta measuring 4 point centimeter in diameter, moderate to large pleural effusions bilaterally slightly increased compared to CT 07/11/2024, bibasilar consolidation possibly representing compressive atelectasis, mucosal hyperenhancement with mild wall thickening involving the stomach through the jejunum, hepatic steatosis, EKG with sinus rhythm with PAC with right bundle branch block similar to previous. ED physician did discuss case at length with [facility] who reviewed imaging and noted that the small finding was consistent with previous images and not an acute dissection. In the ED also patient had an inflamed sebaceous cyst on the back which was open and drained per ED physician. In the ED patient ministered Tylenol 650 mg p.o. x 1, fentanyl 50 mcg IV x 1, Lasix 20 mg IV x 1, labetalol 10 mg IV x 1. [facility] Medical History Malnutrition Pancytopenia Medically noncompliant Thrombocytopenia Chronic pancreatitis Macrocytosis associated with alcohol Ascites due to alcoholic cirrhosis Chronic diarrhea Chronic alcohol abuse Abdominal ascites MALIK (acute kidney injury) Seizures Alcoholic hepatitis Chronic pancreatitis Gastric wall thickening Alcohol dependence Anxiety Diabetes Pancreatitis Myocardial infarct Pacemaker AAA (abdominal aortic aneurysm) Admitted to alcohol detoxification center Alcohol abuse Hx of hypercholesterolemia History of diabetes mellitus Alcohol dependence Substance abuse Smoker Alcoholism Right bundle branch block (RBBB) Non-sustained ventricular tachycardia Thoracic aortic aneurysm SVT (supraventricular tachycardia) Ascending aortic dissection (~2005) Pure hypercholesterolemia Adrenal nodule Hiatal hernia Left carotid bruit Cardiac pacemaker in situ (~06/2016) Essential hypertension Pacemaker Sick sinus syndrome Tobacco use HTN (hypertension) Diabetes mellitus, type II Home Medications ?Medication ?Instructions ?Recorded ?Last Taken ?Type atorvastatin 10 mg tablet 10 mg PO DAILY CHOLESTEROL 10/17/20 07/31/24 History dapagliflozin propanediol 10 mg 10 mg PO DAILY DIABETES 09/30/21 07/31/24 History tablet (Farxiga) multivitamin 1 tab PO DAILY SUPPLEMENT 11/11/21 07/31/24 History gabapentin 300 mg capsule 300 mg PO DAILY NEUROPATHY 11/14/22 07/31/24 History metformin 500 mg tablet,extended 500 mg PO DAILY DIABETES 11/15/22 07/31/24 History release 24 hr folic acid 1 mg tablet 1 mg PO DAILY@0800 supplement #0 05/20/23 07/31/24 Rx tabs thiamine HCl (vitamin B1) 100 mg 100 mg PO DAILYCM vitamin #0 tabs 05/20/23 07/31/24 Rx tablet (Vitamin B-1) pantoprazole 40 mg tablet,delayed 40 mg PO BID reflux #60 tabs 06/27/23 07/31/24 Rx release tykfku-sxkxqqud-xycbrqe 1 cap PO TIDCM #90 caps 06/28/24 07/31/24 Rx 24,000-76,000-120,000 unit capsule,delayed rel (Creon) ferrous sulfate 325 mg (65 mg 325 mg PO DAILY supplement 06/30/24 07/31/24 History iron) tablet (FeroSul) furosemide 20 mg tablet 20 mg PO DAILY 30 days #30 tabs 07/06/24 07/31/24 Rx metoprolol succinate 25 mg 12.5 mg (1/2 x 25 mg) PO DAILY 30 07/06/24 07/31/24 Rx tablet,extended release 24 hr days #15 tabs spironolactone 25 mg tablet 25 mg PO DAILY 30 days #30 tabs 07/06/24 07/31/24 Rx L.acidophil,salivari-Bifido 1 cap PO BID Probiotic 08/01/24 07/31/24 History bifidum-Strep thermoph 175 mg capsule Allergy/AdvReac Type Severity Reaction Status Date / Time No Known Allergies Allergy Verified 08/01/24 22:20 Family History Father CAD (coronary artery disease) Mother Dementia Surgical History H/O cardiac catheterization History of aortic aneurysm repair (~2016) History of cataract surgery History of hernia repair History of aortic valve replacement with bioprosthetic valve (~2016) H/O aortic valve replacement Social History household members: family housing: house Smoking Status: Current every day smoker tobacco type: cigarettes alcohol intake: current alcohol intake frequency: 0-2 drinks per day details: Reports currently ~ 2 tall boys daily. substance use type: former substance user caffeine: Yes Type: coffee Number of servings: 3 ROS ROS Narrative Admission Review of Systems: CONSTITUTIONAL: No weight loss, fever, chills,+ weakness or fatigue. HEENT: Eyes: No visual loss, blurred vision, double vision or yellow sclerae. Ears, Nose, Throat: No hearing loss, sneezing, congestion, runny nose or sore throat. SKIN: No rash or itching, lesions, wounds. CARDIOVASCULAR: + Orthopnea, increased edema, weight gain. No chest pain, chest pressure or chest discomfort, palpitations, syncopal events. RESPIRATORY: + Worsening dyspnea, worse with exertion, nonproductive cough. No wheezing, hemoptysis. GASTROINTESTINAL: + Decreased appetite, nausea without emesis, constipation. No diarrhea, abdominal pain, melena, BRBPR. GENITOURINARY: No dysuria, frequency, urgency or retention. NEUROLOGICAL: No headache, dizziness, syncope, paralysis, ataxia, numbness or tingling in the extremities, focal weakness, change in bowel or bladder control, seizure. MUSCULOSKELETAL: + muscle, back pain, joint pain or stiffness. HEMATOLOGIC: + Chronic anemia, easy bleeding/bruising. LYMPHATICS: No enlarged nodes. No history of splenectomy. PSYCHIATRIC: + History of anxiety depression/previous suicidal ideation presentations. ENDOCRINOLOGIC: No reports of sweating, cold or heat intolerance. No polyuria or polydipsia. ALLERGIES: No history of asthma, hives, eczema or rhinitis. Vital Signs Vital Signs Vital Signs: 08/01/24 12:33 08/01/24 14:20 08/01/24 14:32 Temperature 97.8 F Temperature Source Temporal Pulse Rate 102 H 93 Respiratory Rate 18 22 H Respiratory Effort Short of Breath Respiratory Depth Normal Respiratory Pattern Normal Blood Pressure 117/84 H 146/97 H Blood Pressure Mean 95 113 Pulse Ox 97 93 Oxygen Delivery Method Room Air Room Air Room Air Oxygen Flow Rate (L/min) 08/01/24 16:00 08/01/24 18:51 08/01/24 20:00 Temperature Temperature Source Pulse Rate 97 118 H Respiratory Rate 12 18 Respiratory Effort Respiratory Depth Respiratory Pattern Blood Pressure 146/95 H 147/99 H Blood Pressure Mean 112 115 Pulse Ox 92 95 88 Oxygen Delivery Method Room Air Room Air Room Air Oxygen Flow Rate (L/min) 08/01/24 20:02 08/01/24 20:04 08/01/24 20:11 Temperature Temperature Source Pulse Rate 63 Respiratory Rate Respiratory Effort Respiratory Depth Respiratory Pattern Blood Pressure 143/95 H 123/80 H Blood Pressure Mean 111 94 Pulse Ox 96 Oxygen Delivery Method Nasal Cannula Oxygen Flow Rate (L/min) 2 Weight Weight: 155 lb 13.869 oz Body Mass Index (BMI) 21.7 Physical Exam Narrative Physical Examination: General: Awake, alert, oriented x 3 and cooperative, seated upright in ED bed, fatigued, notes breathing with greater ease since ED arrival Skin: Normal color, normal turgor, no icterus, no cyanosis except occasional stage ecchymoses, abrasion. HEENT: AT/NC, EOMI, PERRLA, MMM, no carotid bruits, + JVD noted. Lungs: Diminished, greater bases, mildly increased respiratory rate but no distress, supplemental nasal cannula in place, mild Rales at the bases, no rhonchi or wheezing. Heart: Regular rate and rhythm; no gallop, rub audible, + SM. Abdomen: Soft, NTTP, ND, hyperactive BS, + HM. Extremities: No cyanosis, no clubbing, pedal to mid rooney 2+ pitting edema. Neurological: Patient awake, alert, oriented as noted, cognitive function intact; pupils equally reactive to light and accommodation, cranial nerves gross normal, moving all 4 extremities, no focal deficits, strength moderately to severely globally decreased. Psychiatric: Affect appears mildly flat, fatigued, no acute evidence of depressive or anxiety feelings but does have underlying history and previous suicidal ideation presentation. Results Lab / Micro Data 08/01/24 15:20 08/01/24 15:20 Labs: Laboratory Results - last 24 hr 08/01/24 15:20: WBC 5.4, RBC 3.08 L, Hgb 11.0 L, Hct 34.0 L, MCV 110.4 H, MCH 35.7 H, MCHC 32.4, RDW Std Deviation 58.4 H, RDW Coeff of Kalpana 14.3, Plt Count 189, MPV 11.9, Immature Gran % (Auto) 0.400, Neut % (Auto) 73.3 H, Lymph % (Auto) 16.1 L, [place] % (Auto) 8.0, Eos % (Auto) 0.9, Baso % (Auto) 1.3 H, Absolute Neuts (auto) 4.0, Absolute Lymphs (auto) 0.87, Nucleated RBC % 0, D-Dimer Quant (PE/DVT) 1.39 H*, Sodium 137, Potassium 3.8, Chloride 103, Carbon Dioxide 18.6 L, Anion Gap 16 H, BUN 9, Creatinine 1.17, Est GFR (MDRD) Non-Af 70, BUN/Creatinine Ratio 7.7 L, Glucose 159 H, Calcium 8.4, Total Bilirubin 0.37, AST 48 H, ALT 20, Alkaline Phosphatase 121, [place] [address] H, Total Protein 6.3, Albumin 3.0 L, Globulin 3.3, Albumin/Globulin Ratio 0.9, Lipase 9 L Imaging Radiology Impression Chest X-Ray 08/01/24 15:30 IMPRESSION: Mild bibasilar pleural effusions. Bilateral lower lobe opacities not excluded with residual opacity within the left lower lobe. Reading Location: [id number] Abdomen/Pelvis CT 08/01/24 16:40 IMPRESSION: CHEST: 1. No evidence of pulmonary embolism. 2. Tiny linear hypodensity at the aortic arch, possibly artifactual related to motion or blood flow, though dissection could appear similar. Consider Vascular Surgery consultation. Repeat imaging could be performed with ECG gating. Of note, the ascending thoracic aorta measures 4.0 cm in diameter. 3. Qqkctayf-kh-azvqw pleural effusions bilaterally, slightly increased compared to CT on 07/11/2024. Bibasilar consolidation may represent compressive atelectasis, though infection could appear similar. ABDOMEN AND PELVIS: 1. Mucosal hyperenhancement with mild wall thickening involving the stomach through jejunum, as may be seen with gastroenteritis, which could be of infectious, inflammatory, or ischemic etiology. 2. Hepatic steatosis. Reading Location: [id number] Chest CTA 08/01/24 16:40 IMPRESSION: CHEST: 1. No evidence of pulmonary embolism. 2. Tiny linear hypodensity at the aortic arch, possibly artifactual related to motion or blood flow, though dissection could appear similar. Consider Vascular Surgery consultation. Repeat imaging could be performed with ECG gating. Of note, the ascending thoracic aorta measures 4.0 cm in diameter. 3. Qrbaqthp-vd-yqxlv pleural effusions bilaterally, slightly increased compared to CT on 07/11/2024. Bibasilar consolidation may represent compressive atelectasis, though infection could appear similar. ABDOMEN AND PELVIS: 1. Mucosal hyperenhancement with mild wall thickening involving the stomach through jejunum, as may be seen with gastroenteritis, which could be of infectious, inflammatory, or ischemic etiology. 2. Hepatic steatosis. Reading Location: [id number] Assessment & Plan Assessment/Plan (1) Acute HFrEF (heart failure with reduced ejection fraction): (2) Hypoxia: PLAN: Plan The patient is a 64 y/o M w/ PMHx: Chronic macrocytic anemia, Diabetes mellitus type II, Hx sick sinus syndrome s/p pacemaker placement, Hx Ascending aortic dissection s/p repair, Valvular heart disease s/p AVR repairs, HTN, HLD, GERD, History of EtOH abuse with alcoholic liver cirrhosis/hepatomegaly with history of chronic pancreatitis, Remote history fo heroin abuse, Nonobstructive CAD, GERD, Tobacco use who presents to the [facility] ED on 08/02/2024 with history of 3 days of significantly worsening dyspnea, lower extremity swelling, orthopnea, weight gain with inability to catch his breath worse with activity with poor oral intake with nausea without emesis with last bowel movement possibly 4 days previous noted to be passing gas but constipated prompting eventual ED evaluation to be cautious. #1. Acute hypoxia secondary to acutely decompensated HFrEF complicated by underlying significant valvular disease as well as alcoholic liver cirrhosis as noted: Patient administered IV lasix in the ED, will admit to PCU, maintain on cardiac telemetry, obtain cardiac enzyme series, obtain serial EKGs, continue IV lasix diuresis, monitor I/Os, maintain on intake restriction, continue medical therapy, obtain TSH and magnesium level. Most recent ECHO noted 07/01/2024 with EF 35 to 40%, moderate LV systolic dysfunction with global LV hypokinesis, severe concentric LVH, moderate to severe bioprosthetic AV stenosis, SAY area 1.1 cm?, peak AV gradient 60.2 mmHg, mean AV gradient 40.2 mmHg, pacer lead in the RV identified, trivial MR, transmitral Doppler flow revealing impaired relaxation of LV thus will not repeat. Will place neck ankit wraps. If clinically not improving low threshold to involve cardiology. #2. EtOH Abuse history with ongoing alcohol consumption: Patient notes he significantly cut back, last oral alcohol intake 1 day previous and notes it was only 1 beer and he usually keeps it at a max of 1 beer weekly, encourage strongly complete sobriety, will maintain on MVI, thiamine, folic acid and CIWA protocol to be cautious in case intake amount is not correct. Magnesium and phosphorus levels requested. #3. Nonobstructive CAD: Not on antiplatelet therapy per review of records possibly secondary to thrombocytopenia or previous GI bleed but uncertain, not mentioned in cardiology notes either, will continue statin, metoprolol, not on ANKIT inhibitor/ARB possibly secondary recent MALIK noted in charts. #4. Valvular heart disease: Patient with severe aortic stenosis with history of bioprosthetic valve and previous mechanical replacement then porcine bioprosthetic replacement, ECHO 07/01/2024 with EF 35 to 40%, moderate LV systolic dysfunction with global LV hypokinesis, severe concentric LVH, moderate to severe bioprosthetic AV stenosis, SAY area 1.1 cm?, peak AV gradient 60.2 mmHg, mean AV gradient 40.2 mmHg, pacer lead in the RV identified, trivial MR, transmitral Doppler flow revealing impaired relaxation of LV. Encouraged continued outpatient reevaluation for aortic valve replacement. #5. Alcoholic liver cirrhosis/hepatomegaly with history of chronic pancreatitis: Given presentation as noted transitioning to IV Lasix, continued on metoprolol and spironolactone, encouraged absolute sobriety, continue Creon regimen, encourage continued follow-up outpatient with gastroenterology as previously arranged. #6. Diabetes mellitus type II with chronic neuropathy: Hold oral home regimen, maintain on ADA diet, accu checks w/ ISS, continue home gabapentin regimen. #7. Chronic macrocytic anemia: Admission hemoglobin 11, MCV 110.4, platelet 189, baseline hemoglobin primarily 7-8, most recently previous to the 07/13/2024 hemoglobin 8.5, continue to trend. #8. Chronic Kidney Disease Stage II per GFR trending: Admission BUN/Cr 10/09.17, GFR 70, baseline renal function primarily 1.1-1.2, repeat BMP in AM. #9. History sick sinus syndrome: Status post pacemaker placement, encourage continued follow-up for interrogation as previously arranged. #10. Known ascending aortic dissection status postrepair: Patient with history of ascending aortic dissection, status postrepair, encourage continued follow-up with CT surgery/vascular surgery as previously arranged, [facility] reviewed images as noted and findings are stable compared to previously. #11. Hypertension: Continue home regimen including spironolactone, metoprolol, IV Lasix, PRN hydralazine. #12. Hyperlipidemia: Will continue patient on statin therapy, FLP in AM. #13. GERD: Will continue patient on famotidine regimen. #14. History of remote polysubstance abuse: Patient with history of remote polysubstance abuse including heroin, clean for at least 10 years, encourage continued clean status. #15. Tobacco Abuse: Encouraged cessation, inpatient consultation per RT, NR if desired. #16. DVT prophylaxis: Lovenox. Charges/Coding Visit Charges Inpatient E&M: 06490 Init Hosp L3
[2024-08-01 21:15] LABS: Magnesium 2.2 mg/dL (1.5-2.2); Phosphorus 2.8 mg/dL (2.7-4.5)
[2024-08-01] MEDS: MELATONIN 3 MG TABLET PO (22:52)
[2024-08-01] MEDS: Pantoprazole Sodium 40 MG Tablet PO (22:52)
[2024-08-01] MEDS: Insulin Lispro 100 UNIT/ML INSULN.PEN SC (22:52)
[2024-08-01] MEDS: Senna/Docusate Sodium 1 Tablet 2 TABLET PO (22:52)
[2024-08-01 23:00] LABS: Bedside Glucose 229 mg/dL (74-106)
[2024-08-01 23:41] LABS: Troponin T High Sensitivity 96 ng/L (<=22)
[2024-08-02] VITALS (7 sets, daily range): BP systolic 92–129; BP diastolic 73–91; PULSE 80–99; RESP 16–18; TEMP 2.6–36.8; O2SAT 94–100; BMI 19.1
[2024-08-02] MEDS: Ondansetron 4 MG/2 ML Vial IV ×2 (01:40→09:49)
[2024-08-02 02:26] LABS: Troponin T High Sens 2 HR 106 ng/L (<=22)
[2024-08-02] MEDS: Acetaminophen 325 MG Tablet 650 MG PO ×3 (03:56→22:54)
[2024-08-02] MEDS: 0.9% Saline Lock 10 ML Syringe IV (03:57)
[2024-08-02 04:02] LABS: Absolute Lymphocyte Count 0.93 X10^3/uL (0.83-4.51); Absolute Neutrophil Count 3.2 X10^3/uL (2.0-7.7); Basophil# 0.09 X10^3/uL; Basophil% 1.8 % (0-1); Hematocrit 29.4 % (40-54); Hemoglobin 9.7 g/dL (13.0-16.5); Lymphocyte # 0.93 X10^3/ul (0.83-4.51); Lymphocyte % 18.5 % (19-41); Mean Corpuscular Hgb 36.3 pg (27.0-32.0); Mean Corpuscular Volume 110.1 fL (80-94); Mean Platelet Vol. 11.5 fl (6.2-12.0); Monocyte# 0.65 X10^3/uL; Monocyte% 12.9 % (0-10); NRBC Flagged by Analyzer 0 % (0-5); Neutrophil # 3.24 X10^3/uL (2.7-7.7); Neutrophil % 64.6 % (47-70); Platelet Count 159 K/mm3 (150-450); RBC Distribution Width CV 14.5 % (11.6-14.6); Red Blood Count 2.67 M/mm3 (4.6-6.2)
[2024-08-02 04:47] LABS: Troponin T High Sens 4 HR 95 ng/L (<=22)
[2024-08-02 04:58] LABS: AST(SGOT) 35 U/L (<=37); Alanine Aminotransfer ALT/SGPT 13 U/L (<=46); Albumin, Serum 2.6 g/dL (3.4-4.8); Alkaline Phosphatase 101 U/L (40-129); Anion Gap 11 (5-15); BUN 9 mg/dL (4-19); BUN/Creat Ratio 8.5 RATIO (10-20); Calcium,Total 8.1 mg/dL (7.6-11.0); Carbon Dioxide 22.3 mmol/L (21.0-32.0); Chloride 105 mmol/L (98-108); Creatinine, Serum 1.09 mg/dL (0.70-1.20); EST Glomerular Filtration Rate 77 (>60); Estimated Creatinine Clearance 61.32 ml/min (50-250); Globulin 2.6 g/dL (2.2-4.2); Glucose 123 mg/dL (70-99); Potassium 3.5 mmol/L (3.3-5.1); Protein, Total 5.1 g/dL (5.9-8.4); Sodium Level 138 mmol/L (133-145); Total Bilirubin 0.31 mg/dL (0.00-1.30)
[2024-08-02 06:17] LABS: Cholesterol 100 mg/dL (<=200); High Density Lipoprotein 33 mg/dL; Low Density Lipoprotein Calc. 41 mg/dL; Triglycerides 132 mg/dL; Very Low Density Lipoprotein 26 mg/dL (5-40); cholesterol:hdl ratio screen 3.06
[2024-08-02 07:26] LABS: Bedside Glucose 126 mg/dL (74-106)
--- NOTE | 2024-08-02 07:44 | PCM.PN.HOSP ---
Reason for Visit Reason for Visit: Diagnoses Acute systolic (congestive) heart failure (08/01/24) Hypoxemia (08/01/24) Subjective Subjective Feeling better. Did have abdominal distention that caused her to be short of breath but doing better now. Objective Data Objective Data Vital Signs: Vital Signs Temp Pulse Resp BP Pulse Ox O2 Del Method O2 Flow Rate 36.8 C 87 16 106/83 H 94 Room Air 2 08/02/24 03:50 08/02/24 03:50 08/02/24 03:50 08/02/24 03:50 08/02/24 03:50 08/02/24 03:50 08/01/24 20:30 Oxygen Flow Rate (L/min) 2 Oxygen Delivery Method Room Air Weight: 62 kg Body Mass Index (BMI) 19.1 Intake & Output: Intake and Output for Last 24 Hours 07/31/24 08/01/24 08/02/24 23:59 23:59 23:59 Output Total 600 / 600 Balance -600 / -600 Lab / Micro Data 08/02/24 03:13 08/02/24 03:13 Labs: Laboratory Results - last 24 hr 08/01/24 15:20: WBC 5.4, RBC 3.08 L, Hgb 11.0 L, Hct 34.0 L, MCV 110.4 H, MCH 35.7 H, MCHC 32.4, RDW Std Deviation 58.4 H, RDW Coeff of Kalpana 14.3, Plt Count 189, MPV 11.9, Immature Gran % (Auto) 0.400, Neut % (Auto) 73.3 H, Lymph % (Auto) 16.1 L, [place] % (Auto) 8.0, Eos % (Auto) 0.9, Baso % (Auto) 1.3 H, Absolute Neuts (auto) 4.0, Absolute Lymphs (auto) 0.87, Nucleated RBC % 0, D-Dimer Quant (PE/DVT) 1.39 H*, Sodium 137, Potassium 3.8, Chloride 103, Carbon Dioxide 18.6 L, Anion Gap 16 H, BUN 9, Creatinine 1.17, Est GFR (MDRD) Non-Af 70, BUN/Creatinine Ratio 7.7 L, Glucose 159 H, Calcium 8.4, Phosphorus 2.8, Magnesium 2.2, Total Bilirubin 0.37, AST 48 H, ALT 20, Alkaline Phosphatase 121, [place] [address] H, Total Protein 6.3, Albumin 3.0 L, Globulin 3.3, Albumin/Globulin Ratio 0.9, Lipase 9 L 08/01/24 22:29: POC Glucose 229 H 08/01/24 23:06: Troponin T High Sens 96 H* 08/02/24 01:40: Troponin T Hi Sens 2 Hr 106 H*, TSH 2.140 08/02/24 03:13: WBC 5.0, RBC 2.67 L, Hgb 9.7 L, Hct 29.4 L, MCV 110.1 H, MCH 36.3 H, MCHC 33.0, RDW Std Deviation 59.0 H, RDW Coeff of Kalpana 14.5, Plt Count 159, MPV 11.5, Immature Gran % (Auto) 0.200, Neut % (Auto) 64.6, Lymph % (Auto) 18.5 L, [place] % (Auto) 12.9 H, Eos % (Auto) 2.0, Baso % (Auto) 1.8 H, Absolute Neuts (auto) 3.2, Absolute Lymphs (auto) 0.93, Nucleated RBC % 0, Sodium 138, Potassium 3.5, Chloride 105, Carbon Dioxide 22.3, Anion Gap 11, BUN 9, Creatinine 1.09, Estim Creat Clear Calc 61.32, Est GFR (MDRD) Non-Af 77, BUN/Creatinine Ratio 8.5 L, Glucose 123 H, Calcium 8.1, Total Bilirubin 0.31, AST 35, ALT 13, Alkaline Phosphatase 101, Troponin T Hi Sens 4Hr 95 H*, Total Protein 5.1 L, Albumin 2.6 L, Globulin 2.6, Albumin/Globulin Ratio 1.0, Triglycerides 132, Cholesterol 100, LDL Cholesterol, Calc 41, VLDL Cholesterol 26, HDL Cholesterol 33 L, Cholesterol/HDL Ratio 3.06 08/02/24 06:52: POC Glucose 126 H Radiography Diagnostic Testing: Radiology Impression Chest X-Ray 08/01/24 15:30 IMPRESSION: Mild bibasilar pleural effusions. Bilateral lower lobe opacities not excluded with residual opacity within the left lower lobe. Reading Location: [id number] Abdomen/Pelvis CT 08/01/24 16:40 IMPRESSION: CHEST: 1. No evidence of pulmonary embolism. 2. Tiny linear hypodensity at the aortic arch, possibly artifactual related to motion or blood flow, though dissection could appear similar. Consider Vascular Surgery consultation. Repeat imaging could be performed with ECG gating. Of note, the ascending thoracic aorta measures 4.0 cm in diameter. 3. Jfeoimtr-tb-xjxyh pleural effusions bilaterally, slightly increased compared to CT on 07/11/2024. Bibasilar consolidation may represent compressive atelectasis, though infection could appear similar. ABDOMEN AND PELVIS: 1. Mucosal hyperenhancement with mild wall thickening involving the stomach through jejunum, as may be seen with gastroenteritis, which could be of infectious, inflammatory, or ischemic etiology. 2. Hepatic steatosis. Reading Location: [facility] Chest CTA 08/01/24 16:40 IMPRESSION: CHEST: 1. No evidence of pulmonary embolism. 2. Tiny linear hypodensity at the aortic arch, possibly artifactual related to motion or blood flow, though dissection could appear similar. Consider Vascular Surgery consultation. Repeat imaging could be performed with ECG gating. Of note, the ascending thoracic aorta measures 4.0 cm in diameter. 3. Nfcbiyha-yi-qzokz pleural effusions bilaterally, slightly increased compared to CT on 07/11/2024. Bibasilar consolidation may represent compressive atelectasis, though infection could appear similar. ABDOMEN AND PELVIS: 1. Mucosal hyperenhancement with mild wall thickening involving the stomach through jejunum, as may be seen with gastroenteritis, which could be of infectious, inflammatory, or ischemic etiology. 2. Hepatic steatosis. Reading Location: [facility] Rhythm Strip Rhythm Strip: Sinus Rhythm Rate: 90 Ectopy: PAC(s) Physical Exam Const alert and no apparent distress HEENT head/scalp atraumatic and moist oral mucous membranes Resp normal respiratory effort and no retractions Resp Narrative: Bibasilar crackles Cardio regular rate, regular rhythm, S1 normal heart sound and S2 normal heart sound GI normal to inspection, nondistended, normoactive bowel sounds, soft to palpation, non-tender and non-distended Extremity normal to inspection Neuro Sensorium / Orientation: awake and alert Assessment & Plan Assessment/Plan (1) Acute HFrEF (heart failure with reduced ejection fraction): PLAN: pulmonary vascular congestion and pleural effusions, increased from 6/3. EF 35-40%. Complicated by severe . on IV furosemide. on spironolactone and metoprolol succinate, dapagliflozin patient was short of breath and yesterday which I feel is probably multifactorial due to his pleural effusions but also he may have had an ileus/small bowel obstruction that is since resolved. (2) Elevated troponin: PLAN: 2/2 CHF exacerbation. Suspect type II event. PLAN: Plan Aortic arch linear hypodensity: DW Dr. Ross, who reviewed the images and feels that much of this may be more postsurgical related with his aortic valve repair and nothing imminent to require transfer at this point. Though he did recommend patient follow-up with his cardiothoracic surgeon. Pancreatic insufficiency: creon. VTE prophylaxis: LMWH. Greater than 50 minutes of which greater than 50 send time was discussed with the patient, talking about the CAT scan findings. Additionally the dressing with specialist to radiology as well as vascular surgery about the CAT scan. Charges/Coding Visit Charges Inpatient E&M: 50877 [facility] Hosp L3
[2024-08-02] MEDS: Spironolactone 25 MG Tablet PO (08:41)
[2024-08-02] MEDS: Creon 24,000 unit DR Capsule 1 CAP PO ×3 (08:41→16:38)
[2024-08-02] MEDS: Thiamine Hydrochloride 100 MG Tablet PO (08:42)
[2024-08-02] MEDS: Multivitamins,Therapeutic Tablet 1 TABLET PO (08:42)
[2024-08-02] MEDS: Folic Acid 1 MG Tablet PO (08:42)
[2024-08-02] MEDS: Enoxaparin 40 MG/0.4 ML Syringe SC (08:43)
[2024-08-02] MEDS: Pantoprazole Sodium 40 MG Tablet PO ×2 (08:43→22:51)
[2024-08-02] MEDS: Metoprolol(XL)Succ 25 MG Tablet 12.5 MG PO (08:43)
[2024-08-02] MEDS: Glucerna Shake 120 ML LIQUID PO (08:50)
[2024-08-02] MEDS: Gabapentin 300 MG Capsule PO (08:50)
[2024-08-02] MEDS: Furosemide 40 MG/4 ML Vial IV ×2 (08:52→17:46)
[2024-08-02] MEDS: Ferrous Sulfate 325 MG Tablet PO (10:50)
[2024-08-02] MEDS: Insulin Lispro 100 UNIT/ML INSULN.PEN SC ×2 (10:53→22:51)
[2024-08-02 11:20] LABS: Bedside Glucose 271 mg/dL (74-106)
--- NOTE | 2024-08-02 11:30 | CASEMGMT ---
ELIS KEATING chart review: Patient was admitted 07/11-07/14/24 for SBO, N/V, and Suicidal ideation. Patient was also admitted 06/22-06/28/24 and 06/30-07/06/24. See CM assessment from from 06/26/24. Patient was [facility] and discharged to home with follow-up plans in place. Patient returned to [facility] ED on 08/01/24 for increased SOB and was admitted for hypoxia and HF exacerbation. ELIS CM in to discuss discharge needs and readmission. Patient states he was taking all his medication as prescribed. Patient had seen his PCP on 07/17 and 07/31/24. Patient states he avoid salt. Patient states that he did not attend outpatient therapy as he was confused that he had an appt with [facility] Van came to pick him up. Patient states he would like outpatient therapy again at [facility] and would like the [facility] Van for transport. Patient denies additional needs at this time. Patient had no further questions or concerns. CM will continue to follow this patient and plan for a safe discharge.
[2024-08-02 14:17] LABS: Bedside Glucose 120 mg/dL (74-106)
--- NOTE | 2024-08-02 14:19 | CASEMGMT ---
SW provided patient with information on [employer] transportation offerings and [facility] hospital van. Patient is also aware he can contact his insurance for transportation. Ashley STONE
--- NOTE | 2024-08-02 17:12 | EX.PCM.CON.S ---
Assessment & Plan Assessment/Plan (1) H/O aortic valve replacement: (2) History of aortic aneurysm repair: PLAN: Plan CTA images were reviewed by Dr. Ross; demonstrate prior aortic aneurysm repair at the site of concern, changes appear consistent with postoperative changes rather than acute dissection. Reviewed ER physician note who documented discussion with F CT surgery who compared CTA Chest here this admission with CTA Chest from 2017 and felt it was stable and consistent with postsurgical changes as well. No indication for transfer or intervention at this time. Would advise he re-establish with [facility] CT for ongoing surveillance. HPI Consult Data Date of Consult: 08/02/24 HPI Narrative HPI Narrative: ANALILIA TALLEY, is a 64 M who presented to [facility] ER on 08/01/24 increased edema and SOB and was admitted with CHF exacerbation. As part of his workup, he had CTA Chest which was negative for PE but which demonstrated tiny linear hypodensity at the aortic arch, possibly artifactual related to motion or blood flow, though dissection could appear similar for which we are consulted. He reports that he had a prior aortic arch aneurysm repair when he was around 42 years old; he reports this aneurysm was felt to be congenital at the time. He subsequently then had mechanical aortic valve replacement which he reports failed a year later and so he then had bioprosthetic aortic valve replacement around 2017 at [facility]. He denies any chest pain today. He reports his SOB is much better, he is overall feeling much better than yesterday. [facility] Medical History Malnutrition Pancytopenia Medically noncompliant Thrombocytopenia Chronic pancreatitis Macrocytosis associated with alcohol Ascites due to alcoholic cirrhosis Chronic diarrhea Chronic alcohol abuse Abdominal ascites MALIK (acute kidney injury) Seizures Alcoholic hepatitis Chronic pancreatitis Gastric wall thickening Alcohol dependence Anxiety Diabetes Pancreatitis Myocardial infarct Pacemaker AAA (abdominal aortic aneurysm) Admitted to alcohol detoxification center Alcohol abuse Hx of hypercholesterolemia History of diabetes mellitus Alcohol dependence Substance abuse Smoker Alcoholism Right bundle branch block (RBBB) Non-sustained ventricular tachycardia Thoracic aortic aneurysm SVT (supraventricular tachycardia) Ascending aortic dissection (~2005) Pure hypercholesterolemia Adrenal nodule Hiatal hernia Left carotid bruit Cardiac pacemaker in situ (~06/2016) Essential hypertension Pacemaker Sick sinus syndrome Tobacco use HTN (hypertension) Diabetes mellitus, type II Home Medications ?Medication ?Instructions ?Recorded ?Last Taken ?Type atorvastatin 10 mg tablet 10 mg PO DAILY CHOLESTEROL 10/17/20 07/31/24 History dapagliflozin propanediol 10 mg 10 mg PO DAILY DIABETES 09/30/21 07/31/24 History tablet (Farxiga) multivitamin 1 tab PO DAILY SUPPLEMENT 11/11/21 07/31/24 History gabapentin 300 mg capsule 300 mg PO DAILY NEUROPATHY 11/14/22 07/31/24 History metformin 500 mg tablet,extended 500 mg PO DAILY DIABETES 11/15/22 07/31/24 History release 24 hr folic acid 1 mg tablet 1 mg PO DAILY@0800 supplement #0 05/20/23 07/31/24 Rx tabs thiamine HCl (vitamin B1) 100 mg 100 mg PO DAILYCM vitamin #0 tabs 05/20/23 07/31/24 Rx tablet (Vitamin B-1) pantoprazole 40 mg tablet,delayed 40 mg PO BID reflux #60 tabs 06/27/23 07/31/24 Rx release nzqdes-wgsjbsdg-dxjcbnn 1 cap PO TIDCM #90 caps 06/28/24 07/31/24 Rx 24,000-76,000-120,000 unit capsule,delayed rel (Creon) ferrous sulfate 325 mg (65 mg 325 mg PO DAILY supplement 06/30/24 07/31/24 History iron) tablet (FeroSul) furosemide 20 mg tablet 20 mg PO DAILY 30 days #30 tabs 07/06/24 07/31/24 Rx metoprolol succinate 25 mg 12.5 mg (1/2 x 25 mg) PO DAILY 30 07/06/24 07/31/24 Rx tablet,extended release 24 hr days #15 tabs spironolactone 25 mg tablet 25 mg PO DAILY 30 days #30 tabs 07/06/24 07/31/24 Rx L.acidophil,salivari-Bifido 1 cap PO BID Probiotic 08/01/24 07/31/24 History bifidum-Strep thermoph 175 mg capsule Allergy/AdvReac Type Severity Reaction Status Date / Time No Known Allergies Allergy Verified 08/01/24 22:20 Family History Father CAD (coronary artery disease) Mother Dementia Surgical History (Updated 08/02/24 @ 17:21 by ANDREY Chanel) History of aortic aneurysm repair (~2016) H/O cardiac catheterization History of cataract surgery History of hernia repair History of aortic valve replacement with bioprosthetic valve (~2017) H/O aortic valve replacement Social History household members: family housing: house Smoking Status: Current every day smoker tobacco type: cigarettes alcohol intake: current alcohol intake frequency: 0-2 drinks per day details: Reports currently ~ 2 tall boys daily. substance use type: former substance user caffeine: Yes Type: coffee Number of servings: 3 Physical Exam Const alert, oriented x3 and no apparent distress General Appearance: cooperative and comfortable HEENT normocephalic, head/scalp atraumatic, hearing grossly normal bilaterally, external ears normal and external nose normal Eyes General Eye: normal appearance of both eyes Neck General: normal visual inspection Resp normal respiratory effort Effort and Inspection: able to speak in complete sentences; Negative for labored, grunting or stridor Cardio Rate: regular rate Rhythm: regular rhythm Skin no rashes or lesions noted Trauma: no lacerations or abrasions Neuro oriented x3, moves all extremities, no focal motor deficits and no sensory deficits noted Speech: speech normal Psych mental status grossly normal Appearance: grossly normal Attitude: calm and engaged Activity / Motor Behavior: appropriate eye contact Speech: normal speech Lab / Micro Data 08/02/24 03:13 08/02/24 03:13 Labs: Laboratory Results - last 24 hr 08/01/24 15:20: Phosphorus 2.8, Magnesium 2.2 08/01/24 22:29: POC Glucose 229 H 08/01/24 23:06: Troponin T High Sens 96 H* 08/02/24 01:40: Troponin T Hi Sens 2 Hr 106 H*, TSH 2.140 08/02/24 03:13: WBC 5.0, RBC 2.67 L, Hgb 9.7 L, Hct 29.4 L, MCV 110.1 H, MCH 36.3 H, MCHC 33.0, RDW Std Deviation 59.0 H, RDW Coeff of Kalpana 14.5, Plt Count 159, MPV 11.5, Immature Gran % (Auto) 0.200, Neut % (Auto) 64.6, Lymph % (Auto) 18.5 L, Martin % (Auto) 12.9 H, Eos % (Auto) 2.0, Baso % (Auto) 1.8 H, Absolute Neuts (auto) 3.2, Absolute Lymphs (auto) 0.93, Nucleated RBC % 0, Sodium 138, Potassium 3.5, Chloride 105, Carbon Dioxide 22.3, Anion Gap 11, BUN 9, Creatinine 1.09, Estim Creat Clear Calc 61.32, Est GFR (MDRD) Non-Af 77, BUN/Creatinine Ratio 8.5 L, Glucose 123 H, Calcium 8.1, Total Bilirubin 0.31, AST 35, ALT 13, Alkaline Phosphatase 101, Troponin T Hi Sens 4Hr 95 H*, Total Protein 5.1 L, Albumin 2.6 L, Globulin 2.6, Albumin/Globulin Ratio 1.0, Triglycerides 132, Cholesterol 100, LDL Cholesterol, Calc 41, VLDL Cholesterol 26, HDL Cholesterol 33 L, Cholesterol/HDL Ratio 3.06 08/02/24 06:52: POC Glucose 126 H 08/02/24 10:53: POC Glucose 271 H 08/02/24 13:58: POC Glucose 120 H Rhythm Strip Rhythm Strip: Sinus Rhythm Rate: 90 Ectopy: PAC(s) Imaging Radiology Impression Abdomen/Pelvis CT 08/01/24 16:40 IMPRESSION: CHEST: 1. No evidence of pulmonary embolism. 2. Tiny linear hypodensity at the aortic arch, possibly artifactual related to motion or blood flow, though dissection could appear similar. Consider Vascular Surgery consultation. Repeat imaging could be performed with ECG gating. Of note, the ascending thoracic aorta measures 4.0 cm in diameter. 3. Ydxfwjyr-cn-xsbjr pleural effusions bilaterally, slightly increased compared to CT on 07/11/2024. Bibasilar consolidation may represent compressive atelectasis, though infection could appear similar. ABDOMEN AND PELVIS: 1. Mucosal hyperenhancement with mild wall thickening involving the stomach through jejunum, as may be seen with gastroenteritis, which could be of infectious, inflammatory, or ischemic etiology. 2. Hepatic steatosis. Reading Location: [id number] Chest CTA 08/01/24 16:40 IMPRESSION: CHEST: 1. No evidence of pulmonary embolism. 2. Tiny linear hypodensity at the aortic arch, possibly artifactual related to motion or blood flow, though dissection could appear similar. Consider Vascular Surgery consultation. Repeat imaging could be performed with ECG gating. Of note, the ascending thoracic aorta measures 4.0 cm in diameter. 3. Lqnwlkpv-vh-wgsvt pleural effusions bilaterally, slightly increased compared to CT on 07/11/2024. Bibasilar consolidation may represent compressive atelectasis, though infection could appear similar. ABDOMEN AND PELVIS: 1. Mucosal hyperenhancement with mild wall thickening involving the stomach through jejunum, as may be seen with gastroenteritis, which could be of infectious, inflammatory, or ischemic etiology. 2. Hepatic steatosis. Reading Location: [facility] Charges/Coding Visit Charges Inpatient E&M: 21773 Init Hosp L1
[2024-08-02] MEDS: Atorvastatin Calcium 10 MG Tablet PO (22:51)
[2024-08-02] MEDS: MELATONIN 3 MG TABLET PO (22:53)
[2024-08-02 23:09] LABS: Bedside Glucose 208 mg/dL (74-106)
[2024-08-03 03:15] VITALS: BP 98/72; PULSE 82; RESP 16; TEMP 36.5; O2SAT 94
[2024-08-03 05:38] VITALS: BMI 20.6
[2024-08-03 06:13] LABS: Absolute Lymphocyte Count 0.89 X10^3/uL (0.83-4.51); Absolute Neutrophil Count 2.7 X10^3/uL (2.0-7.7); Basophil# 0.05 X10^3/uL; Basophil% 1.2 % (0-1); Eosinophil# 0.09 X10^3/uL; Eosinophils% 2.2 % (0-5); Hematocrit 29.3 % (40-54); Hemoglobin 9.3 g/dL (13.0-16.5); Lymphocyte # 0.89 X10^3/ul (0.83-4.51); Lymphocyte % 21.3 % (19-41); Mean Corp Hgb Conc 31.7 g/dL (32-36); Mean Corpuscular Hgb 35.1 pg (27.0-32.0); Mean Corpuscular Volume 110.6 fL (80-94); Mean Platelet Vol. 11.4 fl (6.2-12.0); Monocyte# 0.44 X10^3/uL; Monocyte% 10.6 % (0-10); NRBC Flagged by Analyzer 0 % (0-5); Neutrophil # 2.69 X10^3/uL (2.7-7.7); Neutrophil % 64.5 % (47-70); Platelet Count 147 K/mm3 (150-450); RBC Distribution Width CV 14.4 % (11.6-14.6); RBC Distribution Width SD 58.9 fl (35.1-43.9); Red Blood Count 2.65 M/mm3 (4.6-6.2); White Blood Count 4.2 K/mm3 (4.4-11.0)
--- NOTE | 2024-08-03 06:39 | PCM.HOSP.N ---
Hospitalist Note PCP contacted hospital to discuss patient as they are having difficulties setting up follow-up with specialists as he is constantly being admitted and has not had follow-up for some time. She is requesting if able to add referral at discharge for gastroenterology and cardiology if possible.
[2024-08-03 06:48] LABS: Anion Gap 8 (5-15); BUN 14 mg/dL (4-19); BUN/Creat Ratio 10.4 RATIO (10-20); Carbon Dioxide 23.3 mmol/L (21.0-32.0); Chloride 107 mmol/L (98-108); Creatinine, Serum 1.38 mg/dL (0.70-1.20); EST Glomerular Filtration Rate 58 (>60); Glucose 151 mg/dL (70-99); Potassium 4.4 mmol/L (3.3-5.1); Sodium Level 139 mmol/L (133-145)
[2024-08-03 07:11] LABS: Bedside Glucose 144 mg/dL (74-106)
--- NOTE | 2024-08-03 07:42 | PN.HOSP_ITS ---
Reason for Visit Reason for Visit: Diagnoses Acute systolic (congestive) heart failure (08/01/24) Hypoxemia (08/01/24) Other specified abnormal findings of blood chemistry (08/01/24) Personal history of other diseases of the circulatory system (08/01/24) Presence of prosthetic heart valve (08/01/24) Other specified postprocedural states (08/01/24) Subjective Subjective Feeling well. No abdominal pain. Objective Data Objective Data Vital Signs: Vital Signs Temp Pulse Resp BP Pulse Ox O2 Del Method O2 Flow Rate 36.5 C L 82 16 98/72 94 Room Air 2 08/03/24 03:15 08/03/24 03:15 08/03/24 03:15 08/03/24 03:15 08/03/24 03:15 08/03/24 03:15 08/01/24 20:30 Oxygen Flow Rate (L/min) 2 Oxygen Delivery Method Room Air Weight: 67 kg Body Mass Index (BMI) 20.6 Intake & Output: Intake and Output for Last 24 Hours 08/01/24 08/02/24 08/03/24 23:59 23:59 23:59 Intake Total 700 / 700 Output Total 900 / 1650 750 / 750 Balance -200 / -950 -750 / -750 Lab / Micro Data 08/03/24 06:06 08/03/24 06:06 Labs: Laboratory Results - last 24 hr 08/02/24 10:53: POC Glucose 271 H 08/02/24 13:58: POC Glucose 120 H 08/02/24 22:50: POC Glucose 208 H 08/03/24 06:06: WBC 4.2 L, RBC 2.65 L, Hgb 9.3 L, Hct 29.3 L, MCV 110.6 H, MCH 35.1 H, MCHC 31.7 L, RDW Std Deviation 58.9 H, RDW Coeff of Kalpana 14.4, Plt Count 147 L, MPV 11.4, Immature Gran % (Auto) 0.200, Neut % (Auto) 64.5, Lymph % (Auto) 21.3, [place] % (Auto) 10.6 H, Eos % (Auto) 2.2, Baso % (Auto) 1.2 H, Absolute Neuts (auto) 2.7, Absolute Lymphs (auto) 0.89, Nucleated RBC % 0, Sodium 139, Potassium 4.4, Chloride 107, Carbon Dioxide 23.3, Anion Gap 8, BUN 14, Creatinine 1.38 H, Estim Creat Clear Calc 52.60, Est GFR (MDRD) Non-Af 58 L, BUN/Creatinine Ratio 10.4, Glucose 151 H, Calcium 8.0 08/03/24 06:53: POC Glucose 144 H Rhythm Strip Rhythm Strip: Sinus Rhythm Rate: 90 Ectopy: PAC(s) Physical Exam Const alert and no apparent distress HEENT head/scalp atraumatic and moist oral mucous membranes Resp normal respiratory effort and no retractions Cardio regular rate, regular rhythm, S1 normal heart sound and S2 normal heart sound GI normal to inspection, nondistended, normoactive bowel sounds, soft to palpation, non-tender and non-distended Assessment & Plan Assessment/Plan (1) Acute HFrEF (heart failure with reduced ejection fraction): PLAN: pulmonary vascular congestion and pleural effusions, increased from 6/3. EF 35-40%. Complicated by severe . on IV furosemide. on spironolactone and metoprolol succinate, dapagliflozin patient was short of breath and yesterday which I feel is probably multifactorial due to his pleural effusions but also he may have had an ileus/small bowel obstruction that is since resolved. Will dc w furosemide (2) Elevated troponin: PLAN: 2/2 CHF exacerbation. Suspect type II event. PLAN: Plan Aortic arch linear hypodensity: DW Dr. Ross, who reviewed the images and feels that much of this may be more postsurgical related with his aortic valve repair and nothing imminent to require transfer at this point. Though he did recommend patient follow-up with his cardiothoracic surgeon. Pancreatic insufficiency: creon. Follow up with GI as outpt. VTE prophylaxis: LMWH.
[2024-08-03 08:46] VITALS: BP 127/98; PULSE 86; RESP 16; TEMP 36.5; O2SAT 97
[2024-08-03] MEDS: Spironolactone 25 MG Tablet PO (08:47)
[2024-08-03] MEDS: Furosemide 40 MG/4 ML Vial IV (08:47)
[2024-08-03 08:48] VITALS: PULSE 86
[2024-08-03] MEDS: Folic Acid 1 MG Tablet PO (08:48)
[2024-08-03] MEDS: Pantoprazole Sodium 40 MG Tablet PO (08:48)
[2024-08-03] MEDS: Thiamine Hydrochloride 100 MG Tablet PO (08:48)
[2024-08-03] MEDS: Metoprolol(XL)Succ 25 MG Tablet 12.5 MG PO (08:48)
[2024-08-03] MEDS: Multivitamins,Therapeutic Tablet 1 TABLET PO (08:48)
[2024-08-03] MEDS: Creon 24,000 unit DR Capsule 1 CAP PO ×2 (08:48→11:30)
[2024-08-03] MEDS: Polyethylene Glycol 3350 17 GM PACKET PO (08:49)
[2024-08-03] MEDS: Gabapentin 300 MG Capsule PO (08:52)
[2024-08-03] MEDS: Insulin Lispro 100 UNIT/ML INSULN.PEN SC (11:28)
[2024-08-03] MEDS: Ferrous Sulfate 325 MG Tablet PO (11:30)
[2024-08-03 12:01] LABS: Bedside Glucose 304 mg/dL (74-106)
--- NOTE | 2024-08-03 12:06 | PCM.DC.SUM ---
Providers Date of Admission: 08/01/24 Primary Care Physician: Sigrid Call [facility], DO Consultations 08/02/24 07:59 Consult: Vascular Surgery Routine Consulting Provider: Valeriy Ross Reason for Consult: aortic arch abnormality EMERGENT Consult: No MD Notified: Yes Date Notified: 08/02/24 Time Notified: 09:48 Method of Notification: Text to Suyapa Reason For Visit: HYPOXIA, HFrEF EXACERBATION Diagnosis Discharge Diagnosis (1) Acute HFrEF (heart failure with reduced ejection fraction): Status: Acute Code(s): I50.21 - Acute systolic (congestive) heart failure Plan: pulmonary vascular congestion and pleural effusions, increased from 07/11. EF 35-40%. Complicated by severe . on IV furosemide. on spironolactone and metoprolol succinate, dapagliflozin patient was short of breath and yesterday which I feel is probably multifactorial due to his pleural effusions but also he may have had an ileus/small bowel obstruction that is since resolved. Will dc w furosemide (2) Elevated troponin: Status: Resolved Code(s): R79.89 - Other specified abnormal findings of blood chemistry Plan: 2/2 CHF exacerbation. Suspect type II event. Plan Aortic arch linear hypodensity: DW Dr. Ross, who reviewed the images and feels that much of this may be more postsurgical related with his aortic valve repair and nothing imminent to require transfer at this point. Though he did recommend patient follow-up with his cardiothoracic surgeon. Pancreatic insufficiency: creon. Follow up with GI as outpt. VTE prophylaxis: LMWH. Medications at Discharge Home Medications atorvastatin 10 mg tablet 10 mg PO DAILY CHOLESTEROL 10/17/20 dapagliflozin propanediol 10 mg tablet (Farxiga) 10 mg PO DAILY DIABETES 09/30/21 multivitamin 1 tab PO DAILY SUPPLEMENT 11/11/21 gabapentin 300 mg capsule 300 mg PO DAILY NEUROPATHY 11/14/22 metformin 500 mg tablet,extended release 24 hr 500 mg PO DAILY DIABETES 11/15/22 folic acid 1 mg tablet 1 mg PO DAILY@0800 supplement #0 tabs 05/20/23 thiamine HCl (vitamin B1) 100 mg tablet (Vitamin B-1) 100 mg PO DAILYCM vitamin #0 tabs 05/20/23 pantoprazole 40 mg tablet,delayed release 40 mg PO BID reflux #60 tabs 06/27/23 bhtfnm-zhihkzir-vpeyvvt 24,000-76,000-120,000 unit capsule,delayed rel (Creon) 1 cap PO TIDCM #90 caps 06/28/24 ferrous sulfate 325 mg (65 mg iron) tablet (FeroSul) 325 mg PO DAILY supplement 06/30/24 metoprolol succinate 25 mg tablet,extended release 24 hr 12.5 mg (1/2 x 25 mg) PO DAILY 30 days #15 tabs 07/06/24 spironolactone 25 mg tablet 25 mg PO DAILY 30 days #30 tabs 07/06/24 L.acidophil,salivari-Bifido bifidum-Strep thermoph 175 mg capsule 1 cap PO BID Probiotic 08/01/24 furosemide 20 mg tablet 40 mg (2 x 20 mg) PO DAILY 30 days #60 tabs 08/03/24 sacubitril 24 mg-valsartan 26 mg tablet (Entresto) 1 tab PO BID #60 tabs 08/03/24 Hospital Course Operations None Procedures None Summary of Care Provided Minutes Spent on Discharge: 32 Hospital Course: Patient presents with shortness of breath and abdominal distention. Abdominal sentient resolved spontaneously and breathing got better. Did have CAT scan showed bilateral pleural effusions. Patient was started on furosemide and overall did better. It was noted on his CAT scan that there was some linear density in his aortic arch concerning for dissection. Patient was seen by vascular surgery and felt that these are chronic changes related with his prior aortic valve replacement and not anything urgent. Patient was also asymptomatic and not having any chest pain. It was recommended that the patient follow-up with his cardiothoracic surgeon. Patient states that that was performed about 20 years ago so he has not followed up in the interim. Do recommend that he do follow-up with [facility]. Do recommend that he follow-up with cardiology and they can facilitate an outpatient follow-up with CT surgery. In regards to patient shortness of breath I feel the pleural effusions were concerning but with his abdominal distention and recent hospitalizations with ileus/small bowel obstruction I think that he likely had a an ileus or small bowel obstruction that pushed up on his diaphragm and with his pleural effusion is causing him to be short of breath. Patient has not required oxygen bruno here. Patient will be discharged home Weight / BMI Weight Weight: 67 kg Body Mass Index (BMI) 20.6 ABG / Lab / Microbiology Data 08/03/24 06:06 08/03/24 06:06 Laboratory: Laboratory Results - last 24 hr 08/02/24 13:58: POC Glucose 120 H 08/02/24 22:50: POC Glucose 208 H 08/03/24 06:06: WBC 4.2 L, RBC 2.65 L, Hgb 9.3 L, Hct 29.3 L, MCV 110.6 H, MCH 35.1 H, MCHC 31.7 L, RDW Std Deviation 58.9 H, RDW Coeff of Kalpana 14.4, Plt Count 147 L, MPV 11.4, Immature Gran % (Auto) 0.200, Neut % (Auto) 64.5, Lymph % (Auto) 21.3, [place] % (Auto) 10.6 H, Eos % (Auto) 2.2, Baso % (Auto) 1.2 H, Absolute Neuts (auto) 2.7, Absolute Lymphs (auto) 0.89, Nucleated RBC % 0, Sodium 139, Potassium 4.4, Chloride 107, Carbon Dioxide 23.3, Anion Gap 8, BUN 14, Creatinine 1.38 H, Estim Creat Clear Calc 52.60, Est GFR (MDRD) Non-Af 58 L, BUN/Creatinine Ratio 10.4, Glucose 151 H, Calcium 8.0 08/03/24 06:53: POC Glucose 144 H 08/03/24 11:27: POC Glucose 304 H D/C Instructions Discharge Diet: - (1.5 liters (50 ounces, 6.5 cups) fluid per day. ) DC O2, CPAP, BIPAP Needs Home O2 Discharge instructions: No Meaningful Use Info Meaningful Use Meaningful Use Diagnoses (Choose all that apply): CHF CHF ANKIT/ARB ordered at discharge?: Yes Documented LVEF (%): 35 Ischemic Stroke Statin Dosing Therapy Reference: STATIN DOSE THERAPY REFERENCE: * Patients > 75 years receive moderate or high dose statin therapy. * Patients 75 years or YOUNGER should receive HIGH intensity statin dose unless contraindicated. You will be required to document reason for non-treatment if statin daily dose does not meet guidelines. HIGH DOSE STATIN THERAPY DAILY Atorvastatin > than or = to 40 mg Rosuvastatin > than or = to 20 mg Amlodipine + Atorvastatin > than or = to 2.5/40 mg Ezetimibe + Simvastatin 10/80 mg Simvastatin 80mg Discharge Plan Admission Admit Date/Time: 08/01/24 20:44 Primary Reason for Your Visit: CHF exacerbation Attending Provider: Valeriy Connell Primary Care Provider: Sigrid Call Consulting Providers: Iman Aguayo; Valeriy Ross Instructions Additional Instructions / Restrictions: Please follow-up with cardiology. They can facilitate a follow-up appointment with cardiothoracic surgery. Discharge Orders/Prescriptions Prescriptions: New Entresto 24-26 mg tablet 1 tab PO BID Qty: 60 0RF Continued atorvastatin 10 mg tablet 10 mg PO DAILY dapagliflozin propanediol [Farxiga] 10 mg Tablet 10 mg PO DAILY multivitamin Tablet 1 tab PO DAILY gabapentin 300 mg Capsule 300 mg PO DAILY metformin 500 mg tablet extended release 24 hr 500 mg PO DAILY Patient Comments: PT STATES THEY TAKE THIS ONCE DAILY. pantoprazole 40 mg tablet,delayed release (DR/EC) 40 mg PO BID Qty: 60 0RF Creon 24,000-76,000 -120,000 unit Capsule,Delayed Release(Dr/Ec) 1 cap PO TIDCM Qty: 90 1RF thiamine HCl (vitamin B1) [Vitamin B-1] 100 mg Tablet 100 mg PO DAILYCM Qty: 0 0RF folic acid 1 mg Tablet 1 mg PO DAILY@0800 Qty: 0 0RF ferrous sulfate [FeroSul] 325 mg (65 mg iron) tablet 325 mg PO DAILY metoprolol succinate 25 mg Tablet Extended Release 24 Hr 12.5 mg PO DAILY 30 Days Qty: 15 2RF spironolactone 25 mg Tablet 25 mg PO DAILY 30 Days Qty: 30 2RF L.acidoph,saliva-B.bif-S.therm 175 mg Capsule 1 cap PO BID Changed furosemide 20 mg Tablet 40 mg PO DAILY 30 Days Qty: 60 2RF Referrals / Follow Up: [facility] [Provider Group] - Within 1 Month [facility] [Provider Group] - Within 1 Month Sigrid Call DO [Primary Care Provider] - Within 2 Weeks Disposition Disposition (needs filled in before D/C Order can be placed): Home, Self Care Charges/Coding Visit Charges Inpatient E&M: 55934 Disch Hosp >30min
--- NOTE | 2024-08-03 15:11 | CASEMGMT ---
Patient has order for discharge. ELIS KEATING received script for outpatient therapy, ELIS KEATING sent referral to [facility] with arrangements for [facility] to call patient to schedule appt and that patient would like to utilize the van for transport. ELIS KEATING in and updated patient regarding outpatient therapy referal to [facility]. Patient voiced appreciation and denied furhter needs or concerns at discharge. Patient had no further question. ELIS KEATING placed script for therapy in discharge packet and updated discharge plan.
== END 2024-08-03 16:43 | disposition home or self-care (01) | DRG 194 ==
LOC: ED 15:05 → PCU 21:50
PROVIDERS: Admitting Provider Family Medicine; Emergency Provider Emergency Medicine; PCP Family Medicine
DX: I13.0 Hypertensive heart and chronic kidney disease with heart failure and stage 1 through stage 4 chronic kidney disease, or unspecified chronic kidney disease (principal); J90 Pleural effusion, not elsewhere classified; K86.89 Other specified diseases of pancreas; I21.A1 Myocardial infarction type 2; E11.22 Type 2 diabetes mellitus with diabetic chronic kidney disease; D53.9 Nutritional anemia, unspecified; K70.30 Alcoholic cirrhosis of liver without ascites; I50.21 Acute systolic (congestive) heart failure; I35.0 Nonrheumatic aortic (valve) stenosis; E11.40 Type 2 diabetes mellitus with diabetic neuropathy, unspecified; K21.9 Gastro-esophageal reflux disease without esophagitis; E78.00 Pure hypercholesterolemia, unspecified; F17.210 Nicotine dependence, cigarettes, uncomplicated; N18.2 Chronic kidney disease, stage 2 (mild); I25.10 Atherosclerotic heart disease of native coronary artery without angina pectoris; I25.2 Old myocardial infarction; Z79.84 Long term (current) use of oral hypoglycemic drugs; R09.02 Hypoxemia; Z95.0 Presence of cardiac pacemaker; Z79.899 Other long term (current) drug therapy; Z95.3 Presence of xenogenic heart valve; R16.0 Hepatomegaly, not elsewhere classified; Z87.898 Personal history of other specified conditions; R79.89 Other specified abnormal findings of blood chemistry
CPT/HCPCS: 36415; 71046; 71275; 74177; 80048; 80053; 80061; 82962; 83690; 83735; 83880; 84100; 84443; 84484; 85025; 85379; 93005; 94668; 97162; 97166; 97802; 99285; Q9967; A4216; J1938; J2405

== ENCOUNTER 2024-08-28 17:45 | Inpatient (IN) | payer MEDICARE, MEDICAID, SELFPAY ==
[2024-08-28] VITALS (7 sets, daily range): BP systolic 137–139; BP diastolic 101–123; PULSE 105–133; RESP 18–30; TEMP 36.6; O2SAT 89–98; BMI 20.4
--- NOTE | 2024-08-28 18:42 | EKG12_ITS ---
Test Reason : SOB Blood Pressure : */* mmHG Vent. Rate : 108 BPM Atrial Rate : 108 BPM P-R Int : 186 ms QRS Dur : 122 ms QT Int : 350 ms P-R-T Axes : * -29 103 degrees QTcB Int : [address] with 1st degree AVB Right bundle branch block Abnormal ECG Confirmed by Denys Pearson ([id number]), editor managing director CARLOS ROBLES ([id number]) on 08/29/2024 1:33:38 PM Referred By: EFRAÍN/CATALINO Confirmed By: Denys Pearson
--- NOTE | 2024-08-28 18:43 | ED.VIS.DYS ---
HPI History of Present Illness Chief Complaint: Shortness of Breath Informant: patient Onset/Context/Timing Onset: Days Context: gradual Timing: Intermittent Current Severity: Mild Maximum Severity: Mild Worsened by: Nothing Relieved by: Nothing Associated Symptoms Chest Pain: Positive for None Narrative Narrative: 64-year-old male history of liver cirrhosis with ascites has been drained 4 times once a month for the last 4 months has not been yet this month. 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 He is on no blood thinners. States he just felt short of breath the last several days. With leg swelling. Denies any chest pain. No cough or fever. PE Risk Factors: Negative for Cancer, OCP + Smoking + > 35, Prior DVT or PE, Recent immobilization, Recent surgery or Recent travel Prior similar symptoms: Yes Recent Illness/Hospitalization: No PFSH PFSH Medical History Malnutrition Pancytopenia Medically noncompliant Thrombocytopenia Chronic pancreatitis Macrocytosis associated with alcohol Ascites due to alcoholic cirrhosis Chronic diarrhea Chronic alcohol abuse Abdominal ascites MALIK (acute kidney injury) Seizures Alcoholic hepatitis Chronic pancreatitis Gastric wall thickening Alcohol dependence Anxiety Diabetes Pancreatitis Myocardial infarct Pacemaker AAA (abdominal aortic aneurysm) Admitted to alcohol detoxification center Alcohol abuse Hx of hypercholesterolemia History of diabetes mellitus Alcohol dependence Substance abuse Smoker Alcoholism Right bundle branch block (RBBB) Non-sustained ventricular tachycardia Thoracic aortic aneurysm SVT (supraventricular tachycardia) Ascending aortic dissection (~2005) Pure hypercholesterolemia Adrenal nodule Hiatal hernia Left carotid bruit Cardiac pacemaker in situ (~06/2016) Essential hypertension Pacemaker Sick sinus syndrome Tobacco use HTN (hypertension) Diabetes mellitus, type II Home Medications ?Medication ?Instructions ?Recorded ?Last Taken ?Type atorvastatin 10 mg tablet 10 mg PO DAILY CHOLESTEROL 10/17/20 07/31/24 History dapagliflozin propanediol 10 mg 10 mg PO DAILY DIABETES 09/30/21 07/31/24 History tablet (Farxiga) multivitamin 1 tab PO DAILY SUPPLEMENT 11/11/21 07/31/24 History gabapentin 300 mg capsule 300 mg PO DAILY NEUROPATHY 11/14/22 07/31/24 History metformin 500 mg tablet,extended 500 mg PO DAILY DIABETES 11/15/22 07/31/24 History release 24 hr folic acid 1 mg tablet 1 mg PO DAILY@0800 supplement #0 05/20/23 07/31/24 Rx tabs thiamine HCl (vitamin B1) 100 mg 100 mg PO DAILYCM vitamin #0 tabs 05/20/23 07/31/24 Rx tablet (Vitamin B-1) pantoprazole 40 mg tablet,delayed 40 mg PO BID reflux #60 tabs 06/27/23 07/31/24 Rx release oggfqm-qysbtgax-geodnym 1 cap PO TIDCM #90 caps 06/28/24 07/31/24 Rx 24,000-76,000-120,000 unit capsule,delayed rel (Creon) ferrous sulfate 325 mg (65 mg 325 mg PO DAILY supplement 06/30/24 07/31/24 History iron) tablet (FeroSul) metoprolol succinate 25 mg 12.5 mg (1/2 x 25 mg) PO DAILY 07/06/24 07/31/24 Rx tablet,extended release 24 hr blood pressure 30 days #15 tabs spironolactone 25 mg tablet 25 mg PO DAILY diuretic 30 days 07/06/24 07/31/24 Rx #30 tabs L.acidophil,salivari-Bifido 1 cap PO BID Probiotic 08/01/24 07/31/24 History bifidum-Strep thermoph 175 mg capsule furosemide 20 mg tablet 40 mg (2 x 20 mg) PO DAILY 30 days 08/03/24 Unknown Rx #60 tabs sacubitril 24 mg-valsartan 26 mg 1 tab PO BID #60 tabs 08/03/24 Unknown Rx tablet (Entresto) Allergy/AdvReac Type Severity Reaction Status Date / Time No Known Allergies Allergy Verified 08/01/24 22:20 Family History Father CAD (coronary artery disease) Mother Dementia Surgical History History of aortic aneurysm repair (~2016) H/O cardiac catheterization History of cataract surgery History of hernia repair History of aortic valve replacement with bioprosthetic valve (~2016) H/O aortic valve replacement Social History household members: family housing: house Smoking Status: Light Smoker (<10/day) alcohol intake: current alcohol intake frequency: 0-2 drinks per day details: Reports currently ~ 2 tall boys daily. substance use type: former substance user caffeine: Yes Type: coffee Number of servings: 3 ROS ROS ED ROS Narrative Shortness of breath. Denies recent illness. No chest pain. Constitutional Constitutional ED: Denies chills or fever(s) Eyes Eyes: Denies blurry vision ENT ENT ED: Denies ear pain Cardiovascular Cardiovascular: Denies chest pain Respiratory/Chest Respiratory/Chest: Reports dyspnea; Denies cough Gastrointestinal Gastrointestinal: Denies abdominal pain Genitourinary Genitourinary ED: Denies dysuria or hematuria Musculoskeletal Musculoskeletal: Denies arthralgias Integumentary Denies abscess Neurologic Neurologic: Denies headache(s) Psychiatric Psychiatric: Denies anxiety or depression Endocrine Endocrinology: Denies cold intolerance Hematologic/Lymphatic Hematologic/Lymphatic: Denies easy bleeding, easy bruising or lymphadenopathy Allergic/Immunologic Allergic/Immunologic ED: Denies mouth swelling, tongue swelling or urticaria EXAM Physical Exam Narrative Exam Narrative: 64-year-old male sitting upright in bed. Vital signs stable he is tachycardic initially 120 in triage prior 110 or less currently. No acute distress. Pulse ox 95% on room air no signs hypoxia. H EENT exam pupils round react light. Moist mucous membranes. Neck nontender JVD. Lungs clear to auscultation bilaterally. Heart tachycardic 110 no murmur. He does have a valve click. Abdomen soft nondistended normal bowel sounds without peritoneal signs. He is very minimal ascitic fluid currently. He is not distended. Is not hard. He is not tender. Moving all 4 extremities. 1+ pitting edema both lower extremities equal symmetrical. Calves nontender no cords. Neurologically is awake alert. Answering questions following commands. Const Vital Signs: 08/28/24 17:46 08/28/24 17:51 08/28/24 18:42 Temperature 97.9 F Temperature Source Oral Pulse Rate 120 H Respiratory Rate 27 H Respiratory Effort Short of Breath Respiratory Depth Shallow Respiratory Pattern Tachypnea Blood Pressure 137/101 H Blood Pressure Mean 113 Pulse Ox 95 94 Oxygen Delivery Method Room Air Room Air Room Air Oxygen Flow Rate (L/min) Fraction of Inspired Oxygen (FIO2) 08/28/24 19:49 08/28/24 19:49 08/28/24 21:00 Temperature Temperature Source Pulse Rate 105 H 133 H Respiratory Rate 24 H 30 H Respiratory Effort Respiratory Depth Respiratory Pattern Blood Pressure 139/123 H Blood Pressure Mean 128 Pulse Ox 89 96 98 Oxygen Delivery Method Room Air Nasal Cannula Oxygen Flow Rate (L/min) 2 Fraction of Inspired Oxygen (FIO2) 08/28/24 21:27 08/28/24 23:00 Temperature Temperature Source Pulse Rate 115 H Respiratory Rate 18 Respiratory Effort Respiratory Depth Respiratory Pattern Blood Pressure Blood Pressure Mean Pulse Ox 92 96 Oxygen Delivery Method Venturi Mask Oxygen Flow Rate (L/min) 8 Fraction of Inspired Oxygen (FIO2) 40 Positive well nourished and well developed; Negative for cachectic, contractures or unkempt General Appearance ED: well developed and NAD; Negative for unkempt, cachectic or contractures Nutritional Appearance: Negative for cachectic HEENT Reports moist mucous membranes atraumatic; Negative for trauma or tenderness Eyes PERRL and EOMs intact bilaterally Neck no lymphadenopathy, supple, no meningeal signs and no JVD Resp normal respiratory effort and clear to auscultation bilaterally Cardio regular rhythm, S1 normal heart sound, S2 normal heart sound and no murmurs; Negative for regular rate Cardio Narrative: Valve click. Tachycardia about 110. He has a bovine valve. Rate: tachycardic GI non-tender, non-distended and no masses GI Narrative: Minimal abdominal ascites. Nontender. Auscultation: normoactive bowel sounds Palpation: soft; Negative for tender or guarding Back/Spine no CVA tenderness and normal to inspection Extremity Negative for normal to inspection Extremity Narrative: 1+ pitting edema bilaterally. General Extremety ED: Yes edema; Negative for tenderness General Extremity: edema Neuro oriented x3 and CN's II-XII intact bilaterally Sensorium / Orientation: alert, oriented to person, oriented to place and oriented to time Motor Exam: strength 5/5 throughout Psych mental status grossly normal Appearance: Negative for unkempt Thought Process: normal thought process Skin no wounds and skin turgor normal Lesions: no lesions Rashes: no rashes MDM MDM MDM Narrative Medical decision making narrative: 64-year-old cirrhotic male complaining of shortness of breath. Undergo a cardiac workup with a D-dimer due to recent hospitalization. Clinically I do not think this is can be a PE or cardiac in nature could be anemic he could have a pleural effusion from his ascites. His abdomen is not significantly distended with ascitic fluid I do not think it is from that. Repeat exam patient is resting comfortably currently. He is on oxygen. Patient does not have oxygen at home. I believe is secondary to the pleural effusions. However I spoke to the hospitalist will be a PCU admit. Patient will be given some IV Lasix. History & Record Review Discussion w/independent historian: Patient Additional record(s) reviewed:: Prior inpatient record, Prior outpatient record, Prior ED visit and Prior labs Lab Data Attestation: I reviewed the patient's lab results. Lab results narrative: CBC shows a white count of 4. H&H 10.1 and 31.6. History of chronic anemia. Platelets 181. Electrolytes show potassium of 3.1. Gap 13. Normal BUN of 8 creatinine 1.1. Glucose 369 he is diabetic. Troponin is elevated 67. 2-hour troponin is 57. D-dimer is elevated at 1.52. Patient recently had a CTA that was negative for PE. UA negative. Chest x-ray bilateral pleural effusions. Chronic changes. Labs: Laboratory Results - last 24 hr 08/28/24 08/28/24 08/28/24 17:09 17:54 19:56 WBC 4.8 RBC 3.00 L Hgb 10.1 L Hct 31.6 L MCV 105.3 H MCH 33.7 H MCHC 32.0 RDW Std Deviation 53.1 H RDW Coeff of Kalpana 13.8 Plt Count 181 MPV 11.9 Immature Gran % (Auto) 0.200 Neut % (Auto) 68.3 Lymph % (Auto) 21.3 [place] % (Auto) 7.6 Eos % (Auto) 1.4 Baso % (Auto) 1.2 H Absolute Neuts (auto) 3.3 Absolute Lymphs (auto) 1.03 Nucleated RBC % 0 D-Dimer Quant (PE/DVT) 1.52 H* Sodium 137 Potassium 3.1 L Chloride 102 Carbon Dioxide 21.9 Anion Gap 13 BUN 8 Creatinine 1.10 Estim Creat Clear Calc 65.39 Est GFR (MDRD) Non-Af 76 BUN/Creatinine Ratio 7.3 L Glucose 369 H Calcium 8.0 Troponin T High Sens 67 H* D Troponin T Hi Sens 2 Hr Urine Color Straw Urine Clarity Clear Urine pH 7.0 Ur Specific [place] 1.010 Urine Protein Negative Urine Glucose (UA) 1000 H Urine Ketones Negative Urine Occult Blood Negative Urine Nitrite Negative Urine Bilirubin Negative Urine Urobilinogen Normal Ur Leukocyte Esterase Negative Urine RBC 0-5 SEEN Urine WBC 0-5 SEEN Ur Squamous Epith Cells 0 SEEN Urine Bacteria 0 SEEN Urine Mucus 0 SEEN 08/28/24 22:32 WBC RBC Hgb Hct MCV MCH MCHC RDW Std Deviation RDW Coeff of Kalpana Plt Count MPV Immature Gran % (Auto) Neut % (Auto) Lymph % (Auto) [place]illi[place] % (Auto) Eos % (Auto) Baso % (Auto) Absolute Neuts (auto) Absolute Lymphs (auto) Nucleated RBC % D-Dimer Quant (PE/DVT) Sodium Potassium Chloride Carbon Dioxide Anion Gap BUN Creatinine Estim Creat Clear Calc Est GFR (MDRD) Non-Af BUN/Creatinine Ratio Glucose Calcium Troponin T High Sens Troponin T Hi Sens 2 Hr 57 H* Urine Color Urine Clarity Urine pH Ur Specific [place] Urine Protein Urine Glucose (UA) Urine Ketones Urine Occult Blood Urine Nitrite Urine Bilirubin Urine Urobilinogen Ur Leukocyte Esterase Urine RBC Urine WBC Ur Squamous Epith Cells Urine Bacteria Urine Mucus Radiography Chest X-Ray - ED: 2 View, Read by ED Physician, Heart, Mediastinum, Bony Structures, Chronic Changes, Right Effusion and Left Effusion Diagnostic Testing: Clinical Impression(s) from Imaging Studies Chest X-Ray 08/28/24 19:28 IMPRESSION: 1. Bibasilar atelectasis or pneumonia. 2. Bilateral pleural effusions. Reading Location: [facility] [place] Chest x-ray, 2 views, AP and lateral, noted by myself and radiologist. Prior sternotomy. Left-sided pacemaker. Bilateral moderate-sized pleural effusions. Rhythm Strip Rhythm Strip: Paced Rate: 108 Ectopy: None EKG Initial EKG: Attestation: I personally reviewed and interpreted this EKG as follows: Interpretation: Paced Comments: Paced rhythm 108 no acute signs of OH or ischemia. Discharge Plan Triage Chief Complaint: Shortness of Breath ED Provider: Vinh Lomeli Dx/Rx/DC Orders Prescriptions: No Action atorvastatin 10 mg tablet 10 mg PO DAILY dapagliflozin propanediol [Farxiga] 10 mg Tablet 10 mg PO DAILY multivitamin Tablet 1 tab PO DAILY gabapentin 300 mg Capsule 300 mg PO DAILY metformin 500 mg tablet extended release 24 hr 500 mg PO DAILY Patient Comments: PT STATES THEY TAKE THIS ONCE DAILY. pantoprazole 40 mg tablet,delayed release (DR/EC) 40 mg PO BID Qty: 60 0RF Creon 24,000-76,000 -120,000 unit Capsule,Delayed Release(Dr/Ec) 1 cap PO TIDCM Qty: 90 1RF thiamine HCl (vitamin B1) [Vitamin B-1] 100 mg Tablet 100 mg PO DAILYCM Qty: 0 0RF folic acid 1 mg Tablet 1 mg PO DAILY@0800 Qty: 0 0RF ferrous sulfate [FeroSul] 325 mg (65 mg iron) tablet 325 mg PO DAILY metoprolol succinate 25 mg Tablet Extended Release 24 Hr 12.5 mg PO DAILY 30 Days Qty: 15 2RF spironolactone 25 mg Tablet 25 mg PO DAILY 30 Days Qty: 30 2RF L.acidoph,saliva-B.bif-S.therm 175 mg Capsule 1 cap PO BID Entresto 24-26 mg tablet 1 tab PO BID Qty: 60 0RF furosemide 20 mg Tablet 40 mg PO DAILY 30 Days Qty: 60 2RF Primary Care Provider: Sigrid Call Referrals: Sigrid Call, DO [Primary Care Provider] - Print Language: Persian
[2024-08-28 19:01] LABS: Hematocrit 31.6 % (40-54); Hemoglobin 10.1 g/dL (13.0-16.5); Immature Granulocytes Count 0.010 X10^3/uL (0.0-0.0); Mean Corp Hgb Conc 32.0 g/dL (32-36); Mean Corpuscular Volume 105.3 fL (80-94); Mean Platelet Vol. 11.9 fl (6.2-12.0); NRBC Flagged by Analyzer 0 % (0-5); Platelet Count 181 K/mm3 (150-450); RBC Distribution Width CV 13.8 % (11.6-14.6); RBC Distribution Width SD 53.1 fl (35.1-43.9); Red Blood Count 3.00 M/mm3 (4.6-6.2); White Blood Count 4.8 K/mm3 (4.4-11.0)
[2024-08-28 19:23] LABS: Anion Gap 13 (5-15); BUN 8 mg/dL (4-19); BUN/Creat Ratio 7.3 RATIO (10-20); Calcium,Total 8.0 mg/dL (7.6-11.0); Carbon Dioxide 21.9 mmol/L (21.0-32.0); Chloride 102 mmol/L (98-108); Estimated Creatinine Clearance 65.39 ml/min (50-250); Glucose 369 mg/dL (70-99); Potassium 3.1 mmol/L (3.3-5.1)
--- NOTE | 2024-08-28 19:28 | RAD_ITS ---
EXAM: XR Chest, 2 Views CLINICAL INDICATION: CHEST PAIN TECHNIQUE: Frontal and lateral views of the chest. COMPARISON: No relevant prior studies available. FINDINGS: LUNGS AND PLEURAL SPACES: Bibasilar atelectasis or pneumonia. Bilateral pleural effusions. No pneumothorax. HEART: Unremarkable. No cardiomegaly. MEDIASTINUM: Unremarkable. Normal mediastinal contour. BONES/JOINTS: Unremarkable. No acute fracture. TUBES, LINES AND DEVICES: Left-sided cardiac pacemaker. RAD/Chest PA and Lateral IMPRESSION: 1. Bibasilar atelectasis or pneumonia. 2. Bilateral pleural effusions. Reading Location: [id number]
[2024-08-28 19:38] LABS: Troponin T High Sensitivity 67 ng/L (<=22)
[2024-08-28 19:49] LABS: Mucous, Urine 0 SEEN /hpf (<or=2+); Squamous Epithelial Cells - UA 0 SEEN /hpf (0-5)
[2024-08-28 20:01] LABS: Color, Urine Straw (Yellow); Glucose, Dipstick 1000 mg/dl (Normal); Ketone-Dipstick Negative (Negative); Leukocyte Esterase-Dipstick Negative /ul (Negative); Nitrite-Dipstick Negative (Negative); Occult Blood-Urine Negative /ul (Negative); Protein-Dipstick Negative (Negative); Specific Gravity, Urine 1.010 (1.002-1.030); Urine Bilirubin Dipstick Negative (Negative)
[2024-08-28 20:26] LABS: Red Blood Cells-Urine 0-5 SEEN /hpf (0-5)
[2024-08-28 21:16] LABS: D-Dimer Quantitative (DVT/PE) 1.52 FEU/ug/m (0.27-0.49)
[2024-08-28 23:11] LABS: Troponin T High Sens 2 HR 57 ng/L (<=22)
[2024-08-29] VITALS (14 sets, daily range): BP systolic 101–143; BP diastolic 77–107; PULSE 59–116; RESP 18–20; TEMP 36.1–36.9; O2SAT 90–100; BMI 20.7
[2024-08-29] MEDS: Furosemide 20 MG/2 ML VIAL IV (00:08)
--- NOTE | 2024-08-29 00:19 | HP.PCM_ITS ---
[facility] - General General Date of Admission: 08/29/24 Date of Service: 08/29/24 Chief Complaint: Shortness of breath HPI Narrative ANALILIA TALLEY, is a 64 M who presents to the emergency room with chief complaint of shortness of breath. Patient has significant past medical history of liver cirrhosis with ascites has been drained 4 times once a month for the last 4 months but has not been done this month yet. Patient also has a history of anemia, ascites and alcohol abuse, pancreatitis, [place], diabetes, aortic valve replaced with a bovine valve for which she is not on blood thinners. Patient complains of increasing shortness of breath over the last several days with leg swelling, he denies any chest pain no coughing or fevers. Patient is not on oxygen at home but is requiring oxygen to maintain a saturation greater than 90% here in the hospital. Laboratory studies show a white blood cell count of 4.8, hemoglobin 10.1, hematocrit 31.6, platelets 181, sodium 137, potassium low at 3.1, chloride 102, bicarb 21.9, BUN 8, creatinine 1.1, glucose 369, troponin 67, troponin 57, urinalysis was negative chest x-ray shows bilateral pleural effusions. CT angiogram was done in late July and was negative for pulmonary embolism at that time and probability for a new PE at that time was considered low therefore another CT angiogram was not done at this time. Patient was scheduled to go home from the emergency room but due to hypoxia and need for oxygen he will be admitted here in the hospital. [facility] Medical History Malnutrition Pancytopenia Medically noncompliant Thrombocytopenia Chronic pancreatitis Macrocytosis associated with alcohol Ascites due to alcoholic cirrhosis Chronic diarrhea Chronic alcohol abuse Abdominal ascites MLAIK (acute kidney injury) Seizures Alcoholic hepatitis Chronic pancreatitis Gastric wall thickening Alcohol dependence Anxiety Diabetes Pancreatitis Myocardial infarct Pacemaker AAA (abdominal aortic aneurysm) Admitted to alcohol detoxification center Alcohol abuse Hx of hypercholesterolemia History of diabetes mellitus Alcohol dependence Substance abuse Smoker Alcoholism Right bundle branch block (RBBB) Non-sustained ventricular tachycardia Thoracic aortic aneurysm SVT (supraventricular tachycardia) Ascending aortic dissection (~2005) Pure hypercholesterolemia Adrenal nodule Hiatal hernia Left carotid bruit Cardiac pacemaker in situ (~06/2016) Essential hypertension Pacemaker Sick sinus syndrome Tobacco use HTN (hypertension) Diabetes mellitus, type II Home Medications ?Medication ?Instructions ?Recorded ?Last Taken ?Type atorvastatin 10 mg tablet 10 mg PO DAILY CHOLESTEROL 0 10/17/20 07/31/24 History dapagliflozin propanediol 10 mg 10 mg PO DAILY DIABETE S 09/30/21 07/31/24 History tablet (Farxiga) multivitamin 1 tab PO DAILY SUPPLEMENT 07/31/24 History gabapentin 300 mg capsule 300 mg PO DAILY NEUROPATHY 1 07/31/24 History metformin 500 mg tablet,extended 500 mg PO DAILY DIABE COLLETTE 11/15/22 07/31/24 History release 24 hr folic acid 1 mg tablet 1 mg PO DAILY@0800 supplemen t #0 05/20/23 07/31/24 Rx tabs thiamine HCl (vitamin B1) 100 mg 100 mg PO DAILYCM vit padilla #0 tabs 05/20/23 07/31/24 Rx tablet (Vitamin B-1) pantoprazole 40 mg tablet,delayed 40 mg PO BID reflux #60 tabs 06/27/23 07/31/24 Rx release ferrous sulfate 325 mg (65 mg 325 mg PO DAILY suppleme nt 06/30/24 07/31/24 History iron) tablet (FeroSul) metoprolol succinate 25 mg 12.5 mg (1/2 x 25 mg) PO DA RASHEED 07/06/24 07/31/24 Rx tablet,extended release 24 hr blood pressure 30 days # 15 tabs spironolactone 25 mg tablet 25 mg PO DAILY diuretic 30 days 07/06/24 07/31/24 Rx #30 tabs L.acidophil,salivari-Bifido 1 cap PO BID Probiotic 07/31/24 History bifidum-Strep thermoph 175 mg capsule furosemide 20 mg tablet 40 mg (2 x 20 mg) PO DAILY 3 0 days 08/03/24 Unknown Rx #60 tabs sacubitril 24 mg-valsartan 26 mg 1 tab PO BID #60 tabs 08/03/24 Unknown Rx tablet (Entresto) wpgegc-pcpezadl-nelqojy 1 cap PO BIDCM 08/29/24 Unkn own History 24,000-76,000-120,000 unit capsule,delayed rel (Creon) Allergy/AdvReac Type Severity Reaction Status Date / Time No Known Allergies Allergy Verified 08/01/24 22:20 Family History Father CAD (coronary artery disease) Mother Dementia Surgical History History of aortic aneurysm repair (~2016) H/O cardiac catheterization History of cataract surgery History of hernia repair History of aortic valve replacement with bioprosthetic valve (~2016) H/O aortic valve replacement Social History household members: family housing: house Smoking Status: Light Smoker (<10/day) alcohol intake: current alcohol intake frequency: 0-2 drinks per day details: Reports currently ~ 2 tall boys daily. substance use type: former substance user caffeine: Yes Type: coffee Number of servings: 3 ROS Constitutional Constitutional: Denies chills or fever(s) Eyes Eyes: Denies blurry vision ENT HEENT: Denies abnormal hearing Cardiovascular Cardiovascular: Denies chest pain Respiratory/Chest Respiratory/Chest: Reports shortness of breath at rest Gastrointestinal Gastrointestinal: Reports abdominal pain Genitourinary Genitourinary: Denies dysuria Musculoskeletal Musculoskeletal: Denies back pain Integumentary Integumentary: Reports dry skin Neurologic Neurologic: Denies abnormal speech Psychiatric Psychiatric: Denies anxiety Vital Signs Vital Signs Vital Signs: 08/28/24 17:46 08/28/24 17:51 08/28/24 18:42 Temperature 97.9 F Temperature Source Oral Pulse Rate 120 H Respiratory Rate 27 H Respiratory Effort Short of Breath Respiratory Depth Shallow Respiratory Pattern Tachypnea Blood Pressure 137/101 H Blood Pressure Mean 113 Pulse Ox 95 94 Oxygen Delivery Method Room Air Room Air Room Air Oxygen Flow Rate (L/min) Fraction of Inspired Oxygen (FIO2) 08/28/24 19:49 08/28/24 19:49 08/28/24 21:00 Temperature Temperature Source Pulse Rate 105 H 133 H Respiratory Rate 24 H 30 H Respiratory Effort Respiratory Depth Respiratory Pattern Blood Pressure 139/123 H Blood Pressure Mean 128 Pulse Ox 89 96 98 Oxygen Delivery Method Room Air Nasal Cannula Oxygen Flow Rate (L/min) 2 Fraction of Inspired Oxygen (FIO2) 08/28/24 21:27 08/28/24 23:00 08/29/24 00:00 Temperature 97.8 F Temperature Source Pulse Rate 115 H 108 H Respiratory Rate 18 18 Respiratory Effort Respiratory Depth Respiratory Pattern Blood Pressure 130/99 H Blood Pressure Mean 109 Pulse Ox 92 96 96 Oxygen Delivery Method Venturi Mask Oxygen Flow Rate (L/min) 8 Fraction of Inspired Oxygen (FIO2) 40 Weight Weight: 146 lb 6.191 oz Body Mass Index (BMI) 20.4 Physical Exam Const oriented x3 General Appearance: cooperative and well developed HEENT normocephalic and head/scalp atraumatic Eyes PERRL Neck no lymphadenopathy Lymph Lymphatic: no lymphadenopathy noted Resp normal respiratory effort and normal air movement Auscultation: wheezes expiratory wheezes; Negative for rales or rhonchi Cardio regular rate, regular rhythm, S1 normal heart sound and S2 normal heart sound Heart Sounds: murmur systolic GI soft to palpation and non-tender Inspection: abdominal distention Extremity normal capillary refill General Extremity: clubbing Skin General Skin Exam: no breakdown Neuro no focal motor deficits and no sensory deficits noted Psych thought process normal, cooperative and affect normal Results Lab / Micro Data 08/28/24 17:09 08/28/24 17:09 Labs: Laboratory Results - last 24 hr 08/28/24 17:09: WBC 4.8, RBC 3.00 L, Hgb 10.1 L, Hct 31.6 L, MCV 105.3 H, MCH 33.7 H, MCHC 32.0, RDW Std Deviation 53.1 H, RDW Coeff of Kalpana 13.8, Plt Count 181, MPV 11.9, Immature Gran % (Auto) 0.200, Neut % (Auto) 68.3, Lymph % (Auto) 21.3, [place] % (Auto) 7.6, Eos % (Auto) 1.4, Baso % (Auto) 1.2 H, Absolute Neuts (auto) 3.3, Absolute Lymphs (auto) 1.03, Nucleated RBC % 0, Sodium 137, P otassium 3.1 L, Chloride 102, Carbon Dioxide 21.9, Anion Gap 13, BUN 8, Creatinine 1.10, Estim Creat Clear Calc 65.39, Est GFR (MDRD) Non-Af 76, B UN/Creatinine Ratio 7.3 L, Glucose 369 H, Calcium 8.0, Troponin T High Sens 67 H* D 08/28/24 17:54: Urine Color Straw, Urine Clarity Clear, Urine pH 7.0, Ur Specific [place] 1.010, Urine Protein Negative, Urine Glucose (UA) 1000 H, Urine Ketones Negative, Urine Occult Blood Negative, Urine Nitrite Negative, Urine Bilirubin Negative, Urine Urobilinogen Normal, Ur Leukocyte Esterase Negative, Urine RBC 0-5 SEEN, Urine WBC 0-5 SEEN, Ur Squamous Epith Cells 0 SEEN, Urine Bacteria 0 SEEN, Urine Mucus 0 SEEN 08/28/24 19:56: D-Dimer Quant (PE/DVT) 1.52 H* 08/28/24 22:32: Troponin T Hi Sens 2 Hr 57 H* Rhythm Strip Rhythm Strip: Paced Rate: 108 Ectopy: None Imaging Radiology Impression Chest X-Ray 08/28/24 19:28 IMPRESSION: 1. Bibasilar atelectasis or pneumonia. 2. Bilateral pleural effusions. Reading Location: [facility] Assessment & Plan Assessment/Plan (1) Medically noncompliant: (2) History of diabetes mellitus: (3) Pleural effusion: (4) Pleural effusion associated with hepatic disorder: PLAN: Plan 1 shortness of breath?pleural effusions?admit patient to general medical floor, oxygen support to maintain saturation greater than 90%, add albuterol breathing treatments as needed. Add CBC CMP and repeat chest x-ray in a.m. consider consult with interventional radiology to do thoracentesis, if patient is stable and maintained on supportive oxygen it is feasible to discharge home with home oxygen and continue follow-up as an outpatient if he is agreeable to this plan 2. History of diabetes?continue routine home medications 3. DVT prophylaxis?low molecular weight heparin 4. History of cirrhotic liver disease?CMP in the a.m. Charges/Coding Visit Charges Inpatient E&M: 94344 Init Hosp L2
--- OUTSIDE RECORDS SUMMARY | 2024-08-29 00:48 | XMS RPT_ITS | CCD ---
Author Organization [facility] Care Team Providers Care Billposting Supervisor Name Role Phone BANDAR DAIGLE Unavailable Unavailable DAIGLEBANDAR Unavailable Unavailable NO, DOCTOR ON Unavailable Unavailable NO, DOCTOR ON Unavailable Unavailable BANDAR DAIGLE Unavailable Unavailable LYSSA MONTERROSO Referring Unavailable IMCA Primary Care Unavailable UMAIR LARKIN Attending Unavailable IMCA Referring Unavailable IMCA Primary Care Unavailable UMAIR LARKIN Attending Unavailable UMAIR LARKIN Referring Unavailable IMCA Primary Care Unavailable LYSSA MONTERROSO Referring Unavailable IMCA Primary Care Unavailable LYSSA MONTERROSO Referring Unavailable IMCA Primary Care Unavailable LYSSA MONTERROSO Referring Unavailable IMCA Primary Care Unavailable Andreas aPthak Primary Care Provider ZO VEHICLE DISMANTLER - ANDREAS BROWN Primary Care Phys ician Zo VEHICLE MODIFICATION TECHNICIAN, VEHICLE MODIFICATION TECHNICIAN-C Andreas Thorne Primary Care Pr ovider Dr. Samantha Singer Emergency Provider Dr. Ashley Alvarado Admit Provider [phone] Arielle Crowe Other Provider Dr. Sonali Smyth Attending Provider Dr. Arielle Crowe Attending Provider Zo VEHICLE MODIFICATION TECHNICIAN, VEHICLE MODIFICATION TECHNICIAN-C Andreas Thorne Primary Care Pr ovider Dr. Trung Bob Attending Provider Dr. Ashley Alvarado Referring Provider Dr. Chris Call Emergency Provider Dr. Lucas Frausto Admit Provider Dr. Lucas Frausto Attending Provider Dr. Lucas Frausto Other Provider Dr. Refugio Rojas Attending Provider Dr. Refugio Rojas Other Provider Zo VEHICLE MODIFICATION TECHNICIAN, VEHICLE MODIFICATION TECHNICIAN-C Andreas Thorne Primary Care Pr ovider Zo VEHICLE MODIFICATION TECHNICIAN, VEHICLE MODIFICATION TECHNICIAN-C Andreas Thorne Referring Provi mary lou Yun West Attending Provider Unavailable [place] VEHICLE MODIFICATION TECHNICIAN, VEHICLE MODIFICATION TECHNICIAN-C Andreas Thorne Primary Care Pr ovider Dr. Trish Bey Attending Provider Dr. Trish Bey Referring Provider Dr. Samantha Singer Emergency Provider Dr. Valeriy Connell Admit Provider Dr. Valeriy Connell Attending Provider Dr. Valeriy Connell Other Provider Zo VEHICLE MODIFICATION TECHNICIAN, VEHICLE MODIFICATION TECHNICIAN-C Andreas Thorne Primary Care Pr ovider Dr. Samantha Singer Emergency Provider Dr. Valeriy Connell Admit Provider Dr. Valeiry Connell Attending Provider Dr. Valeriy Connell Other Provider Dr. Mateusz Dutton Attending Provider Dr. Mateusz Dutton Other Provider Dr. Radha Skelton Emergency Provider Dr. Iman Aguayo Admit Provider Dr. Iman Aguayo Other Provider Dr. Conrado Morel Attending Provider Unavailable Dr. Conrado Morel Other Provider Unavailable Dr. Vinh Lomeli Emergency Provider Zo VEHICLE MODIFICATION TECHNICIAN, VEHICLE MODIFICATION TECHNICIAN-C Andreas Thorne Primary Care Pr ovider Dr. Iman Aguayo Admit Provider Dr. Iman Aguayo Other Provider Dr. Conrado Morel Attending Provider Unavailable Dr. Conrado Morel Other Provider Unavailable Dr. Mateusz Dutton Attending Provider Dr. Mateusz Dutton Other Provider Korjessica, Dr. Ashley Washington Admit Provider Koram, Dr. Ashley Washington Other Provider Dr. Iman Aguayo Attending Provider Tarik Rounding Nurse, Geremias Unavailable Unavai lable ZO VEHICLE DISMANTLER - SPLUNK D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, ANDREAS Carbajal Primary Care U navailable ZO VEHICLE DISMANTLER - SPLUNK D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, ANDREAS Carbajal Attending U navailable ZO VEHICLE DISMANTLER - SPLUNK D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, ANDREAS Carbajal Primary Care U navailable ZO VEHICLE DISMANTLER - SPLUNK D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, ANDREAS Carbajal Attending U navailable ZO VEHICLE DISMANTLER - SPLUNK D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, ANDREAS Carbajla Attending U navailable ZO VEHICLE DISMANTLER - SPLUNK D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, ANDREAS Carbajal Primary Care U navailable ZO VEHICLE DISMANTLER - SPLUNK D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, ANDREAS Carbajal Attending U navailable ZO VEHICLE DISMANTLER - SPLUNK D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, ANDREAS Carbajal Primary Care U navailable ZO VEHICLE DISMANTLER - SPLUNK D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, ANDREAS Carbajal Primary Care U navailable GINNY FRANCISCO, DR MENDEZ Attending Unavailable BERNARD FRANCISCO, DR MARIELY Love Admitting Kevin WAGNER MD, DR MARIELY Love Consulting Unavai lable ZO VEHICLE DISMANTLER - SPLUNK D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, ANDERAS Carbajal Primary Care U navailable FRANDY FRANCISCO, DR DUNBAR Attending Unavailable ZO VEHICLE DISMANTLER - SPLUNK D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, ANDREAS Carbajal Primary Care U navailable GINNY FRANCISCO, DR MENDEZ Attending Unavailable ZO VEHICLE DISMANTLER - SPLUNK D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, ANDREAS Carbajal Primary Care U navailable ZO VEHICLE DISMANTLER - SPLUNK D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, ANDREAS Carbajal Attending U navailable ZO VEHICLE DISMANTLER - SPLUNK D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, ANDREAS Carbajal Attending U navailable ZO VEHICLE DISMANTLER - SPLUNK D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, ANDREAS Carbajal Primary Care U navailable ZO VEHICLE DISMANTLER - SPLUNK D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, ANDREAS Carbajal Primary Care U navailable ZO VEHICLE DISMANTLER - SPLUNK D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, ANDREAS Carbajal Attending U navailable ZO VEHICLE DISMANTLER - SPLUNK D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, ANDREAS Carbajal Attending U navailable ZO VEHICLE DISMANTLER - SPLUNK D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, ANDREAS Carbajal Primary Care U navailable ZO VEHICLE DISMANTLER - SPLUNK D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, ANDREAS Carbajal Primary Care U navailable FROMMELT DO, MAGDALENA Attending Unavailable RIDER DO, DR MERRICK Alvarez Attending Unavailable ZO VEHICLE DISMANTLER - SPLUNK D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, ANDREAS Carbajal Primary Care U navailable [place] VEHICLE MODIFICATION TECHNICIAN, VEHICLE MODIFICATION TECHNICIAN-C Andreas Thorne Primary Care Pr ovider Dr. Trung Bob Attending Provider Le, Dr. Perez Emergency Provider Dr. Lucas Frausto Admit Provider Jett, Dr. Lucas Fan Attending Provider Dr. Lucas Frausto Other Provider Korjessica, Dr. Ashley Washington Attending Provider [phone] Korjessica, Dr. Ashley Washington Other Provider Zo VEHICLE MODIFICATION TECHNICIAN, VEHICLE MODIFICATION TECHNICIAN-C Andreas Thorne Primary Care Pr ovider Dr. Trung Bob Attending Provider Le, Dr. Perez Emergency Provider Dr. Lucas Frausto Admit Provider Dr. Lucas Frausto Attending Provider Dr. Lucas Frausto Other Provider Koram, Dr. Ashley Washington Attending Provider Korjessica, Dr. Ashley Washington Other Provider Dr. Carlos Augustin Emergency Provider [phone] Dr. Conrado Pro Admit Provider Unavailnelson e Pro, Dr. Camp Other Provider Unavailnelson e Adriel, Dr. Camp Attending Provider Unavailable Adriel, Dr. Camp Other Provider Unavailable Dr. Trenton Strong Other Provider [phone] Dr. Alcides Tucker Other Provider Dr. Aramis Palacios Other Provider Dr. Barry Sheehan Other Provider Dr. Aldo Castellano Other Provider Dr. [place] Other Provider Dr. Chen Merrill Other Provider Dr. Mundo Marcelino Other Provider Dr. Meli Miles Other Provider Dr. Tiara Horowitz Other Provider Unavailable Dr. Yunier Allred Other Provider Dr. Jose Pacheco Other Provider [phone] Marquez Elmore Other Provider Dr. Bronson Peterson Other Provider Dr. Toni Dodge Other Provider Dr. Conrado Morel Referring Provider Unavailable Dr. Barry Sheehan Attending Provider Dr. Iman Aguayo Attending Provider Dr. Maya Melo Other Provider Dr. Refugio Rojas Attending Provider [phone] Dr. Refugio Rojas Other Provider [phone] Trung Bob MD Unavailable Queden VEHICLE DISMANTLER.SPLUNK D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, Marianna A Primary Care Provider QUEDEN VEHICLE MODIFICATION TECHNICIAN-C, MARIANNA Primary Care Physician [phone] QUEDEN VEHICLE MODIFICATION TECHNICIAN-C, MARIANNA Primary Care Unavailable ANN-MARIE DILLON DO Attending Unavailable QUEDEN, MARIANNA A Referring Unavailable QUEDEN, MARIANNA A Primary Care Unavailable QUEDEN, MARIANNA A Primary Care Unavailable LUCAS DELAROSA Attending Unavailable PROVIDER, UNKNOWN Referring Unavailable QUEDEN, MARIANNA A Referring Unavailable VANDANA EDWARDS Attending Unavailable QUEDEN, MARIANNA A Primary Care Unavailable QUEDEN, MARIANNA A Referring Unavailable QUEDEN, MARIANNA A Primary Care Unavailable RAMY DELGADILLO C Referring Unavailable QUEDEN, MARIANNA A Primary Care Unavailable QUEDEN, MARIANNA A Primary Care Unavailable QUEDEN, MARIANNA A Primary Care Unavailable VANDANA EDWARDS Attending Unavailable QUEDEN, MARIANNA A Primary Care Unavailable QUEDEN, MARIANNA A Referring Unavailable SUSANA RAMIREZ Attending Unavailable QUEDEN, MARIANNA A Primary Care Unavailable QUEDEN, MARIANNA A Referring Unavailable QUEDEN, MARIANNA A Primary Care Unavailable QUEDEN, MARIANNA A Referring Unavailable QUEDEN, MARIANNA A Referring Unavailable QUEDEN, MARIANNA A Primary Care Unavailable Care Physician, No Primary Primary Care Provider Unavailable Paulino FRANCISCO, Dr. Nino Attending Provider [phone] Nick RILEY, Dr. Gongora Referring Provider AngyKai RILEY, Dr. Gongora Emergency Provider Queden VEHICLE MODIFICATION TECHNICIAN-C, Marianna Primary Care Provider [phone] de Evelio RILEY, Dr. Camp Admit Provider Unavail able de Evelio RILEY, Dr. Camp Attending Provider Unav ailable de Evelio RILEY, Dr. Camp Other Provider Unavail able Dr. Melonie De La Rosa DO Attending Provider [phone] Dr. Melonie De La Rosa DO Other Provider [phone] Friend , Dr. Hardy Attending Provider Care Physician, No Primary Primary Care Provider Unavailable Dr. Trung Bob MD Attending Provider [facility]astern [facility]. Rolan Quinn DO Referring Provider Nick RILEY, Dr. Gongora Emergency Provider Queden VEHICLE MODIFICATION TECHNICIAN-C, Marianna Primary Care Provider de Evelio , Dr. Camp Admit Provider Unavail able de Evelio , Dr. Camp Other Provider Unavail able Dr. Melonie De La Rosa DO Attending Provider [phone] Dr. Melonie De La Rosa DO Other Provider [phone] Nupur DO, Dr. Hardy Attending Provider Carlos RILEY, Dr. Munguia Emergency Provider de Evelio RILEY, Dr. Camp Attending Provider Unav ailable Pro DO, Dr. Camp Referring Provider Unav ailable Margo RILEY, Dr. Perez Attending Provider Tona FRANCISCO, Dr. Groves Other Provider Margo RILEY, Dr. Perez Other Provider Tona FRANCISCO, Dr. Groves Attending Provider Matias GILLIS, Radha Unavailable Dr. Perez Ribeiro DO Emergency Provider Rj RILEY, Dr. Wilhelm Admit Provider Estee FRANCISCO, Dr. Mcfarlane Other Provider Dr. Conrado Morel MD Attending Provider Unavaila ble Sigrid Call DO Primary Care Provider Adriel FRANCISCO, Dr. Camp Other Provider Unavailable Dian Mendoza PA-C Attending Provider Matias RN, Radha Unavailable Jenn Call DO Primary Care Provider QUEDEN, MARIANNA A Primary Care Unavailable QUEDEN, MARIANNA A Attending Unavailable QUEDEN, MARIANNA A Primary Care Unavailable QUEDEN, MARIANNA A Referring Unavailable QUEDEN, MARIANNA A Attending Unavailable SELF Referring Unavailable QUEDEN, MARIANNA A Primary Care Unavailable QUEDEN, MARIANNA A Attending Unavailable QUEDEN, MARIANNA A Primary Care Unavailable QUEDEN, MARIANNA A Referring Unavailable Tona FRANCISCO, Dr. Groves Other Provider Dr. Yaneli Carbone MD Attending Provider Dr. Conrado Morel MD Referring Provider Unavaila lita Macdonald DO, Dr. Monet Emergency Provider Olivier FRANCISCO, Dr. Iman Callahan Admit Provider Olivier FRANCISCO, Dr. Iman Callahan Attending Provider Olivier FRANCISCO, Dr. Iman Callahan Other Provider [phone] Valeriy Connell DO Attending Provider Cody FRANCISCO, Dr. Crooks Other Provider Dr. Valeriy Connell DO Other Provider Suyapa Bal Attending Provider Olivier FRANCISCO, Dr. Iman Callahan Attending Provider Conrado Pro Admitting Unavailable de Conrado Fraser Consulting Unavailable Chris Aragon Attending Unavailable Conrado Pro Referring Unavailable Queden VEHICLE MODIFICATION TECHNICIAN, [facility] Primary Care Unavailable Melonie De La Rosa Consulting Unavailable Belisabel, Kristaouk Consulting Unavailable Denys Fontanez Consulting Unavailable [facility], [facility] Primary Care Unavailable Conrado Morel Attending Unavailable Daxa De La Rosayn Admitting Unavailable Melonie De La Rosa Consulting Unavailable Conrado Pro Admitting Unavailable Angy-Rolan Quinn Referring Unavailabl e Melonie De La Rosa Attending Unavailable Conrado Pro Consulting Unavailable Queden VEHICLE MODIFICATION TECHNICIAN, [facility] Primary Care Unavailable de Conrado Fraser Admitting Unavailable Chris Aragon Attending Unavailable Conrado Pro Referring Unavailable de Conrado Fraser Consulting Unavailable Queden VEHICLE MODIFICATION TECHNICIAN, [facility] Primary Care Unavailable Melonie De La Rosa Consulting Unavailable Tona, Farouk Consulting Unavailable Chris Aragon Consulting Unavailable Melonie De La Rosa Attending Unavailable Queden VEHICLE MODIFICATION TECHNICIAN, [facility] Primary Care Unavailable Denys Fontanez Consulting Unavailable Conrado Morel Referring Unavailable Dian Rios Attending Unavailable Queden VEHICLE MODIFICATION TECHNICIAN, [facility] Primary Care Unavailable Rj Melonie Admitting Unavailable Daxa De La Rosayn Consulting Unavailable Conrado Morel Consulting Unavailable [facility], [facility] Primary Care Unavailable Iman Aguayo Admitting Unavailable Iman Aguayo Consulting Unavailable Valeriy Connell Attending Unavailable Valeriy Ross Consulting Unavailable Yaneli Carbone Attending Unavailable Queden VEHICLE MODIFICATION TECHNICIAN, [facility] Primary Care Unavailable Conrado Pro Admitting Unavailable Angy-Kai, Rolan Referring Unavailabl e de oCnrado Fraser Consulting Unavailable Conrado Pro Attending Unavailable Queden VEHICLE MODIFICATION TECHNICIAN, [facility] Primary Care Unavailable Jakub [facility], [facility] Primary Care Unavailable White, Iman L Admitting Unavailable White, Iman L Consulting Unavailable White, Iman L Attending Unavailable Alex Connellic Attending Unavailable Valeriy Ross Consulting Unavailable Valeriy Connell Consulting Unavailable Valeriy Connell Referring Unavailable Suyapa Bustos Attending Unavailable Melonie De La Rosa Attending Unavailable Melonie De La Rosa Consulting Unavailable Yaneli Carbone Attending Unavailable Antony Espitia Attending Unavailable Conrado Pro Admitting Unavailable Conrado Pro Referring Unavailable Conrado Pro Consulting Unavailable Conrado Pro Attending Unavailable Fátima VEHICLE MODIFICATION TECHNICIAN, Marianna Primary Care Unavailable Melonie De La Rosa Attending Unavailable Care Physician, No Primary Primary Care Unava ilable Trung Bob Attending Unavailable Trung Bob Attending Unavailable Care Physician, No Primary Primary Care Unava ilable Care Physician, No Primary Primary Care Unava ilable PaulinoTrung pendleton Attending Unavailable [facility], [facility] Primary Care Unavailable Trung Bob Attending Unavailable Antony Espitia Attending Unavailable Conrado Morel Attending Unavailable [facility], [facility] Primary Care Unavailable [facility], [facility] Primary Care Unavailable Melonie De La Rosa Attending Unavailable Melonie De La Rosa Referring Unavailable Medications Current Medications Medication Drug Class(es) Dates Sig (Normalized) Sig (Original) amylase 008373 unt / lipase 60124 unt / protease [id number] unt delayed release oral capsule (20 sources) Start: 12-24-2023 gkcjay-rcpgwozq-tkr lase (CREON 36) 36,000-114,000- 180,000 unit delayed release capsule Indications: Chronic pancreatitis, unspecified pancreatitis type (HCC) Take 2 pills by mouth with first bite of meal and take 1 pill with snacks. Max 10 per day. 300 capsule 3 12/24/2023 Active atorvastatin 40 mg oral tablet (20 sources) HMG-CoA Reductase Inhibitor Start: 10-17-2020 End: 01-13-2022 Start: 11-04-2017 End: 04-10-2024 take 1 tablet by mouth once daily atorvastatin (LIPITOR) 40 mg tablet Indications: Hyperlipidemia LDL goal TAKE ONE TABLET BY MOUTH EVERY DAY 30 tablet 04/10/2024 Active Start: 06-21-2016 End: 04-02-2017 Blood Glucose Test Machine (11 sources) Start: 05-02-2021 Blood Glucose Test Machine See Instructions, Use as directed Brand type per insurance or patient preference, # 1 EA, 0 Refill(s), Pharmacy: [id number], 176.5, cm, 05/02/21 11:34:00 EDT, Height, 73.2, kg, 05/02/21 13:04:00 EDT, Dosing Weight Start Date: 05/02/21 Status: Ordered Quantity: 1.0 Unit: EA Repeat number: 1 Start: 05-02-2021 Blood Glucose Test Machine See Instructions, Use as directed Brand type per insurance or patient preference, # 1 EA, 0 Refill(s), Pharmacy: [id number], 176.5, cm, 05/02/21 11:34:00 EDT, Height, 73.2, kg, 05/02/21 13:04:00 EDT, Dosing Weight Start Date: 05/02/21 Status: Ordered Blood-Glucose Meter,Continuo us (FREESTYLE MANGO 3 READER) misc (20 sources) Start: 08-29-2023 Blood-Glucose Meter,Continuous (FREESTYLE MANGO 3 READER) misc Indications: Type 2 diabetes mellitus with complication, with long-term current use of insulin (HCC) Use to check blood sugar at least four (4) times daily. 1 Each 08/29/2023 Active Start: 08-29-2023 Blood-Glucose Meter,Continuous (FREESTYLE MANGO 3 READER) misc Indications: Type 2 diabetes mellitus with complication, with long-term current use of insulin (HCC) Use to check blood sugar at least four (4) times daily. 1 Each 0 08/29/2023 Active Blood-Glucose Sensor (FREEST YLE MANGO 3 SENSOR) daniel (20 sources) Start: 12-27-2023 Blood-Glucose Sensor (FREESTYLE MANGO 3 SENSOR) daniel Indications: Type 2 diabetes mellitus with complication, with long-term current use of insulin (HCC) Apply new sensor every fourteen (14) days to upper arm. 6 Each 4 12/27/2023 Active Start: 08-29-2023 End: 12-27-2023 Blood-Glucose Sensor (FREEST YLE MANGO 3 SENSOR) adniel Indications: Type 2 diabetes mellitus with complication, with long-term current use of insulin (HCC) Apply new sensor every fourteen (14) days to upper arm. 6 Each 4 08/29/2023 12/27/2023 Discontinued Start: 08-29-2023 Blood-Glucose Sensor (FREESTYLE MANGO 3 SENSOR) daniel Indications: Type 2 diabetes mellitus with complication, with long-term current use of insulin (HCC) Apply new sensor every fourteen (14) days to upper arm. 6 Each 4 08/29/2023 Active cephalexin 500 mg oral capsule (4 sources) Cephalosporin Antibacterial Start: 08-11-2023 End: 08-20-2023 take 1 capsule by mouth twice daily cephALEXin (KEFLEX) 500 mg capsule Take 1 capsule by mouth two times a day for 7 days. 14 capsule 0 08/13/2023 08/20/2023 Active cholecalciferol 0.05 mg oral capsule (20 sources) Vitamin D Start: 08-11-2023 End: 10-14-2023 take 1 capsule by mouth once daily Cholecalciferol, Vitamin D3, (VITAMIN D-3) 50 mcg (2,000 unit) cap Indications: Vitamin D deficiency Take 1 capsule by mouth once daily. 90 capsule 1 10/14/2023 Active Start: 03-15-2023 End: 08-11-2023 cholecalciferol, Vitamin D3, (VITAMIN D3) 1,250 mcg (50,000 unit) cap capsule Dose : 1,250 mcg = 1 cap(s), Oral, qWeek 0 03/15/2023 08/11/2023 Discontinued (Course of therapy completed) Start: 03-15-2023 cholecalcifero l 1250 mcg (50,000 intl units) oral capsule Dose : 1,250 mcg = 1 cap(s), Oral, qWeek Start Date: 03/15/23 Status: Ordered Repeat number: 1 Start: 03-15-2023 cholecalcifero l 1250 mcg (50,000 intl units) oral capsule Dose : 1,250 mcg = 1 cap(s), Oral, qWeek Start Date: 03/15/23 Status: Ordered Start: 07-02-2022 End: 12-29-2022 cholecalciferol 1250 mcg (50 ,000 intl units) oral capsule Dose : 50,000 International_Unit = 1 cap(s), Oral, qWeek, # 13 cap(s), 1 Refill(s), Pharmacy: [id number], Vitamin D deficiency, 176, cm, 07/02/22 10:24:00 EDT, Height Start Date: 07/02/22 Stop Date: 12/29/22 Status: Ordered dapagliflozin 10 mg oral tablet (20 sources) Sodium-Glucose Cotransporter 2 Inhibitor Start: 09-30-2021 End: 02-08-2024 take 1 tablet by mouth once daily at breakfast FARXIGA 10 mg tablet Take 1 tablet by mouth daily with breakfast. 90 tablet 1 02/08/2024 Active Start: 07-04-2021 Farxiga 10 mg oral tablet Dose : 10 mg = 1 tab(s), Oral, qDay, # 30 tab(s), 5 Refill(s), Pharmacy: [place] [id number], 176.5, cm, 05/15/21 8:40:00 EDT, Height Start Date: 07/04/21 Status: Ordered dicyclomine hydrochloride 10 mg oral capsule (20 sources) Anticholinergic Start: 08-09-2023 take 1 capsule by mouth at bedtime dicyclomine (BENTYL) 10 mg capsule Indications: Chronic diarrhea , Irritable bowel syndrome, unspecified type Take 1 capsule by mouth before meals and at bedtime. 120 capsule 2 08/09/2023 Active Start: 05-20-2023 End: 06-30-2024 DME MISCellaneous (20 sources) Start: 04-28-2023 DME MISCellane ous See Instructions, Libre2 sensors. Use to check blood sugar, replace every 14 days. Dispense #2 sensors, # 2 EA, 3 Refill(s), Pharmacy: [facility], 176, cm, 03/29/23 13:58:00 EST, Height, 67.6, kg, 03/29/23 13:58:00 EST, Dosing Weight Start Date: 04/28/23 Status: Ordered Quantity: 2.0 Unit: EA Repeat number: 4 Start: 04-28-2023 DME MISCellane ous See Instructions, Libre2 sensors. Use to check blood sugar, replace every 14 days. Dispense #2 sensors, # 2 EA, 3 Refill(s), Pharmacy: [facility], 176, cm, 03/29/23 13:58:00 EST, Height, 67.6, kg, 03/29/23 13:58:00 EST, Dosing Weight Start Date: 04/28/23 Status: Ordered Start: 01-11-2023 DME MISCellane ous See Instructions, Patient needs a refill on Freestyle Mango 2 sensors., # 2 EA, 3 Refill(s), Pharmacy: [facility], 180, cm, 10/15/22 11:38:00 EDT, Height, 66.8, kg, 10/15/22 11:38:00 EDT, Dosing Weight Start Date: 01/11/23 Status: Ordered Quantity: 2.0 Unit: EA Repeat number: 4 Start: 01-11-2023 DME MISCellane ous See Instructions, Patient needs a refill on Freestyle Mango 2 sensors., # 2 EA, 3 Refill(s), Pharmacy: [facility], 180, cm, 10/15/22 11:38:00 EDT, Height, 66.8, kg, 10/15/22 11:38:00 EDT, Dosing Weight Start Date: 01/11/23 Status: Ordered Start: 11-17-2022 DME MISCellane ous See Instructions, Pen needles. Use with Lantus insulin pen for daily injection. dispense #1 box + 11 refills., # 100 EA, 11 Refill(s), Pharmacy: [facility], 180, cm, 10/15/22 11:38:00 EDT, Height, 66.8, kg, 10/15/22 11:38:00 EDT, Dosing Weight Start Date: 11/17/22 Status: Ordered Quantity: 100.0 Unit: EA Repeat number: 12 Start: 11-17-2022 DME MISCellane ous See Instructions, Pen needles. Use with Lantus insulin pen for daily injection. dispense #1 box + 11 refills., # 100 EA, 11 Refill(s), Pharmacy: [facility], 180, cm, 10/15/22 11:38:00 EDT, Height, 66.8, kg, 10/15/22 11:38:00 EDT, Dosing Weight Start Date: 11/17/22 Status: Ordered Start: 09-29-2022 DME MISCellane ous See Instructions, Patient needs a refill on Freestyle Mango 2 sensors., # 2 EA, 3 Refill(s), Pharmacy: [facility], 176, cm, 07/02/22 10:24:00 EDT, Height, 67.7, kg, 07/02/22 10:18:00 EDT, Dosing Weight Start Date: 09/29/22 Status: Ordered Start: 09-10-2022 DME MISCellane ous See Instructions, Freestyle Mango 2 Sensor, # 1 EA, 0 Refill(s), Pharmacy: [facility], 176, cm, 07/02/22 10:24:00 EDT, Height, 67.7, kg, 07/02/22 10:18:00 EDT, Dosing Weight Start Date: 09/10/22 Status: Ordered Quantity: 1.0 Unit: EA Repeat number: 1 Start: 09-10-2022 DME MISCellane ous See Instructions, Freestyle Mango 2 Sensor, # 1 EA, 0 Refill(s), Pharmacy: [facility], 176, cm, 07/02/22 10:24:00 EDT, Height, 67.7, kg, 07/02/22 10:18:00 EDT, Dosing Weight Start Date: 09/10/22 Status: Ordered Start: 08-15-2022 DME MISCellane ous See Instructions, Libre2 reader. Use with sensor to check blood sugar. Dispense #1 reader, 0 refills, # 1 EA, 0 Refill(s), Pharmacy: [facility], 176, cm, 07/02/22 10:24:00 EDT, Height, 67.7 Start Date: 08/15/22 Status: Ordered Quantity: 1.0 Unit: EA Repeat number: 1 Start: 08-15-2022 DME MISCellane ous See Instructions, Libre2 reader. Use with sensor to check blood sugar. Dispense #1 reader, 0 refills, # 1 EA, 0 Refill(s), Pharmacy: [facility], 176, cm, 07/02/22 10:24:00 EDT, Height, 67.7 Start Date: 08/15/22 Status: Ordered Start: 08-15-2022 DME MISCellane ous See Instructions, Libre2 sensors. Use to check blood sugar, replace every 14 days. Dispense #2 sensors with 11 refills, # 1 EA, 0 Refill(s), Pharmacy: [facility], [facility], [place], 07/02/22 10:24:00 EDT, Height, 67.7 Start Date: 08/15/22 Status: Ordered Start: 08-15-2022 DME MISCellane ous See Instructions, Pen needles. Use with Lantus insulin pen for daily injection. dispense #1 box + 11 refills., # 1 EA, 0 Refill(s), Pharmacy: [facility], 176, , 07/02/22 10:24:00 EDT, Height, 67.7 Start Date: 08/15/22 Status: Ordered ferrous sulfate 325 mg oral tablet (20 sources) Start: 10-14-2023 End: 01-20-2024 take 1 tablet by mouth once daily ferrous sulfate (FEROSUL) 325 mg (65 mg iron) tablet Indications: Anemia, unspecified type TAKE ONE TABLET BY MOUTH EVERY DAY 90 tablet 1 01/20/2024 Active folic acid 1 mg oral tablet (11 sources) Start: 05-20-2023 Start: 06-10-2021 folic acid 1 m g oral tablet Dose : 1 mg = 1 tab(s), Oral, qDay, # 30 tab(s), 0 Refill(s) Start Date: 06/10/21 Status: Ordered Start: 06-01-2021 take 1 mg by mouth once daily Folic Acid Active 1 MG PO DAILY@0800 June 01, 2021 8:44am furosemide 20 mg oral tablet (16 sources) Loop Diuretic Start: 07-06-2024 End: 08-03-2024 Start: 05-20-2023 End: 07-06-2024 gabapentin 300 mg oral capsu le (20 sources) Anti-epileptic Agent Start: 11-08-2021 End: 11-14-2022 Start: 11-08-2021 End: 11-14-2022 take 1 capsule by mouth every eight hours as needed for pain Gabapentin 300 mg Capsule Discontinued 300 mg PO EVERY 8 HOURS NEEDED as needed for neruropathic pain November 08, 2021 12:00am November 14, 2022 12:47am for neuropathy from diabetes 3 ml insulin glargine 100 unt/ml pen injector (20 sources) Insulin Analog Start: 11-14-2022 End: 07-06-2024 inject 15 [IU] by subcutaneous injection once daily insulin glargine 100 unit/mL (3 mL) Indications: Type 2 diabetes mellitus with complication, with long-term current use of insulin (HCC) Inject 15 Units subcutaneously once daily. 1 Each 03/27/2024 Active Start: 11-14-2022 Insulin Glargi ne (Lantus Solostar U-100 Insulin) 100 unit/mL (3 mL) insulin pen Active 10 U SC 1200 November 14, 2022 12:00am Start: 08-15-2022 End: 03-27-2024 inject 10 [IU] by subcutaneous injection once daily insulin glargine 100 unit/mL (3 mL) Indications: Type 2 diabetes mellitus with complication, with long-term current use of insulin (HCC) Inject 10 Units subcutaneously once daily. 1 Each 03/08/2024 03/27/2024 Discontinued (Adjust Sig - Block E-Cancel) Start: 06-01-2021 End: 09-30-2021 Insulin Glargine 100 UNITS/M L insulin pen Discontinued 20 U SC AT BEDTIME 0 June 01, 2021 8:50am September 30, 2021 2:08pm Hold if glucose less than 130 mg/dl Start: 06-01-2021 End: 09-30-2021 Insulin Glargine Discontinue d 20 UNITS SC AT BEDTIME 0 June 01, 2021 8:50am September 30, 2021 2:08pm Hold if glucose less than 130 mg/dl Start: 05-29-2021 End: 06-01-2021 Insulin Glargine 100 UNITS/M L insulin pen Discontinued 25 U SC AT BEDTIME May 29, 2021 7:18pm June 01, 2021 8:50am Start: 05-29-2021 End: 06-01-2021 Insulin Glargine Discontinue d 25 UNITS SC AT BEDTIME May 29, 2021 7:18pm June 01, 2021 8:50am Start: 05-11-2020 End: 09-30-2021 Start: 05-11-2020 End: 05-29-2021 Insulin Glargine 100 UNITS/M L insulin pen Discontinued 10 U SC TWICE A DAY May 11, 2020 12:00am May 29, 2021 7:18pm Start: 05-11-2020 End: 05-29-2021 Insulin Glargine Discontinue d 10 UNITS SC TWICE A DAY May 11, 2020 12:00am May 29, 2021 7:18pm Start: 03-28-2016 End: 08-10-2023 inject 25 [IU] by subcutaneous injection once daily insulin glargine (LANTUS) 100 unit/mL (3 mL) inpn Inject 25 Units subcutaneously once daily. 1 Pen 0 03/28/2016 08/10/2023 Discontinued (Adjust Sig - Block E-Cancel) iv contrast (will be provided with radiology test) (1 source) Start: 12-07-2023 End: 12-08-2023 iv contrast (will be provided with radiology test) CT PANCREAS W Inject, intravenously, once for 1 dose.No IV access, insert saline lock prior to the beginning of sedation, infusion, injection of imaging exam. Discontinue saline lock post exam. If Pt. has a central line or IVAD, may access for administration according to line specific nursing protocol. Once exam is complete flush line and de-access according to line specific nursing protocol in the CT contrast administration guidelines link. 1 Each 12/07/2023 12/08/2023 Active L.Acidoph,Saliva-B. Bif-S.Therm 175 mg Capsule (2 sources) Start: 05-20-2023 take 1 capsule by mouth twice daily L.Acidoph,Saliva-B. Bif-S.Therm 175 mg Capsule Active 2 NMA PO TWICE A DAY 0 May 20, 2023 12:00am levoFLOXacin 250 mg oral tablet (3 sources) Quinolone Antimicrobial Start: 10-17-2023 End: 10-24-2023 take 1 tablet by mouth once daily levoFLOXacin (LEVAQUIN) 250 mg tablet Indications: E. coli UTI Take 1 tablet by mouth once daily for 7 days. 7 tablet 10/17/2023 10/24/2023 Active Tilrzz-Wpmwhliv-Yap lase (4 sources) Start: 09-08-2019 take 1 capsule by mouth five times daily Rhtksp-Sftnsbjk-Hgv lase Active 1 CAP PO 5 TIMES DAILY September 08, 2019 1:14pm Atticc-Rufxyrfz-Xle lase (Creon) 24,000-76,000 -120,000 unit Capsule,Delayed Release(Dr/Ec) (1 source) Start: 06-28-2024 take 27112-30228 capsules by mouth three times daily at mealtime Zguqbd-Wvrcladz-Fou lase (Creon) 24,000-76,000 -120,000 unit Capsule,Delayed Release(Dr/Ec) Active 1 NMA PO 3 TIMES DAILY WITH MEALS June 28, 2024 12:00am 24 hr metFORMIN hydrochloride 500 mg extended release oral tablet (20 sources) Biguanide Start: 03-27-2024 take 2 tablets by mouth once daily at breakfast metFORMIN ER (GLUCOPHAGE XR) 500 mg 24 hr tablet Indications: Type 2 diabetes mellitus with complication, with long-term current use of insulin (HCC) Take 2 tablets by mouth daily with breakfast. 180 tablet 1 03/27/2024 Active Start: 11-15-2022 Start: 01-21-2019 End: 03-27-2024 Start: 01-21-2019 End: 04-20-2023 take 2 tablets by mouth once daily Metformin 500 MG tablet Discontinued 1000 mg PO DAILY January 21, 2019 1:00am April 20, 2023 3:29pm Start: 01-21-2019 End: 04-20-2023 Start: 06-10-2018 End: 06-20-2018 Start: 06-10-2018 End: 06-10-2018 Start: 06-10-2018 End: 10-14-2023 take 500 mg by mouth twice daily Metformin Active 500 MG PO TWICE A DAY January 21, 2019 12:00am Start: 06-20-2016 End: 04-02-2017 24 hr metoprolol succinate 2 5 mg extended release oral tablet (20 sources) beta-Adrenergic Thiago Start: 07-06-2024 Start: 07-02-2023 End: 08-10-2023 metoprolol succinate ER (TOP ROL XL) 50 mg 24 hr tablet Start: 05-20-2023 End: 06-30-2024 Start: 03-19-2023 End: 03-19-2023 Toprol-XL Start: 03/19/23 8:00 :00 AM EST, Dose = 25 mg, = 1 tab(s), Oral, give with food/meal, 03/16/23 10:41:00 EST Start Date: 03/19/23 Stop Date: 03/19/23 Status: Completed Start: 03-18-2023 End: 03-18-2023 Toprol-XL Start: 03/18/23 5:00 :00 PM EST, Dose = 25 mg, = 1 tab(s), Oral, give with food/meal, 03/16/23 10:41:00 EST Start Date: 03/18/23 Stop Date: 03/18/23 Status: Completed Start: 03-15-2023 End: 07-06-2024 take 1 tablet by mouth twice daily metoprolol tartrate, short acting, (LOPRESSOR) 50 mg tablet Indications: Primary hypertension TAKE ONE TABLET BY MOUTH TWICE A DAY 60 tablet 05/29/2024 Active Start: 10-15-2022 End: 05-20-2023 Start: 10-17-2020 End: 06-01-2021 Start: 05-11-2020 End: 06-10-2020 Start: 05-11-2020 End: 06-10-2020 take 1 tablet by mouth once daily Metoprolol Succinate 25 MG tablet extended release 24 hr Discontinued 25 mg PO DAILY May 11, 2020 12:00am June 09, 2020 12:00am June 10, 2020 12:01am Start: 06-10-2018 End: 05-11-2020 Start: 09-24-2017 End: 08-09-2023 Start: 06-20-2016 End: 06-10-2018 Start: 06-20-2016 End: 06-10-2018 take 2 tablets by mouth twice daily Metoprolol Tartrate 50 MG tablet Discontinued 100 mg PO TWICE A DAY June 20, 2016 12:00am June 10, 2018 4:49pm Start: 06-20-2016 End: 06-10-2018 MULTIVITAMIN ORAL (20 sources) take 1 tablet by venu th once daily MULTIVITAMIN ORAL Take 1 tablet by mouth once daily. Active take 1 tablet by mouth once lorene y MULTIVITAMIN ORAL Take 1 tablet by mouth once daily. 0 Active Multivitamin preparation (17 sources) Start: 11-11-2021 take 1 tablet by mouth once daily Multivitamin Active 1 TABLET PO DAILY November 11, 2021 4:26pm Start: 11-11-2021 take 1 tablet by venu th once daily Multivitamin Active 1 TABLET PO DAILY November 11, 2021 4:26pm over the counter Start: 11-11-2021 take 1 tablet by venu th once daily Multivitamin Active 1 TABLET PO DAILY November 11, 2021 3:26pm over the counter Start: 11-05-2021 End: 11-11-2021 take 1 tablet by mouth once daily Multivitamin Discontinued 1 TABLET PO DAILY November 05, 2021 12:00am November 11, 2021 4:26pm over the counter Start: 11-05-2021 End: 11-11-2021 take 1 tablet by mouth once daily Multivitamin Discontinued 1 TABLET PO DAILY November 04, 2021 11:00pm November 11, 2021 3:26pm over the counter Start: 11-05-2021 take 1 tablet by venu th once daily Multivitamin Active 1 TABLET PO DAILY November 05, 2021 12:00am over the counter Multivitamin tablet (4 sources) Start: 11-11-2021 Multivitamin t ablet Active 1 {tbl} PO DAILY November 11, 2021 4:26pm Start: 11-05-2021 End: 11-11-2021 Multivitamin tablet Disconti nued 1 {tbl} PO DAILY November 05, 2021 12:00am November 11, 2021 4:26pm over the counter ONE TOUCH ULTRA BLUE TEST STRP (4 sources) Start: 05-25-2019 ONE TOUCH ULTR A BLUE TEST STRP ONE TOUCH ULTRA BLUE TEST STRP, See Instructions, USE 1 STRIP THREE TIMES A DAY TO TEST BLOOD SUGAR, # 100 strip, 11 Refill(s), 180.3, cm, 04/13/19 10:19:00 EST, Height, 81.7, kg, 04/13/19 10:03:00 EST, Dosing Weight Start Date: 05/25/19 Status: Ordered Start: 05-08-2019 ONE TOUCH ULTR A BLUE TEST STRP ONE TOUCH ULTRA BLUE TEST STRP, See Instructions, USE 1 STRIP THREE TIMES A DAY TO TEST BLOOD SUGAR, # 100 strip, 11 Refill(s), Pharmacy: [id number], 180.3, cm, 04/13/19 10:19:00 EST, Height, 81.7, kg, 04/13/19 10:03:00 EST, Dosing Weight Start Date: 05/08/19 Status: Ordered pancrelipase 5000 units-17,000 units-24,000 units oral delayed release capsule (1 source) Start: 10-04-2020 End: 07-01-2021 take 1 capsule by mouth once daily at mealtime pancrelipase 5000 units-17,000 units-24,000 units oral delayed release capsule Dose = 1 cap(s), Oral, 5x/Day, with each meal and snack, # 450 cap(s), 2 Refill(s), Pharmacy: [id number], Chronic pancreatitis, 180.3, cm, 10/04/20 9:00:00 EDT, Height, kg, 10/04/20 9:00:00 EDT, Dosing Weight Start Date: 10/04/20 Stop Date: 07/01/21 Status: Ordered pantoprazole 40 mg delayed release oral tablet (20 sources) Proton Pump Inhibitor Start: 05-20-2023 End: 06-25-2024 take 1 tablet by mouth twice daily before mealtime pantoprazole DR (PROTONIX) 40 mg tablet Indications: Gastroesophageal reflux disease, unspecified whether esophagitis present TAKE ONE TABLET BY MOUTH TWICE A DAY 3O MINUTES BEFORE MEAL 60 tablet 2 05/29/2024 Active Pen needles 5 mm (12 sources) Start: 04-09-2022 Pen needles 5 mm See Instructions, qs for 1 month supply, # 1 EA, 0 Refill(s), Pharmacy: [facility], type 2, goal HbA1c Start Date: 04/09/22 Status: Ordered Quantity: 1.0 Unit: EA Repeat number: 1 Indication: Type 2 diabetes mellitus without complications Start: 04-09-2022 Pen needles 5 mm See Instructions, qs for 1 month supply, # 1 EA, 0 Refill(s), Pharmacy: [facility], DM type 2, goal HbA1c Start Date: 04/09/22 Status: Ordered Start: 07-05-2020 Pen needles 5 mm See Instructions, qs for 1 month supply, # 1 EA, 11 Refill(s), Pharmacy: [id number], DM type 2, goal HbA1c Start Date: 07/05/20 Status: Ordered polyethylene glycol 3350 [id number] mg / potassium chloride 2970 mg / sodium bicarbonate 6740 mg / sodium chloride 5860 mg / sodium sulfate 89940 mg powder for oral solution (1 source) Osmotic Laxative Start: 12-24-2023 End: 12-24-2023 peg 3350-Electrolytes (GOLYTELY) 236-22.74-6.74 -5.86 gram suspension Take 4,000 mL by mouth one time only for 1 dose. Refer to printed prep instructions from your provider. 4000 mL 12/24/2023 12/24/2023 Active ramipril 10 mg oral capsule (20 sources) Angiotensin Converting Enzyme Inhibitor Start: 10-17-2020 End: 07-06-2024 take 1 capsule by mouth once daily ramipril (ALTACE) 10 mg capsule Indications: Primary hypertension TAKE ONE CAPSULE BY MOUTH EVERY DAY 30 capsule 05/15/2024 Active Start: 10-17-2020 End: 05-20-2023 take 1 capsule by mouth twice daily Ramipril 10 mg capsule Discontinued 10 mg PO TWICE A DAY October 17, 2020 12:00am May 20, 2023 9:38am Start: 08-24-2018 End: 05-11-2020 sacubitril 24 mg / valsartan 26 mg oral tablet (1 source) Angiotensin 2 Receptor Thiago Start: 08-03-2024 spironolactone 25 mg oral tablet (15 sources) Aldosterone Antagonist Start: 05-20-2023 End: 07-06-2024 thiamine 100 mg oral tablet (20 sources) Start: 05-20-2023 take 1 tablet by mouth once daily at mealtime Thiamine Hcl (Vitamin B1) (Vitamin B-1) 100 mg Tablet Active 100 mg PO DAILY WITH MEALS May 20, 2023 12:00am Start: 06-10-2021 thiamine 100 m g oral tablet Dose : 100 mg = 1 tab(s), Oral, Daily, 0 Refill(s) Start Date: 06/10/21 Status: Ordered Start: 06-01-2021 take 1 tablet by venu th once daily at mealtime Thiamine Hcl (Vitamin B1) (Vitamin B-1) 100 mg Tablet Active 100 MG PO DAILY WITH MEALS June 01, 2021 8:44am Start: 05-11-2020 End: 06-10-2020 traMADol hydrochloride 50 mg oral tablet (18 sources) Opioid Agonist Start: 05-25-2023 End: 08-01-2024 take 1 tablet by mouth every eight hours as needed traMADol (ULTRAM) 50 mg tablet Take 50 mg by mouth every 8 hours as needed for pain. 05/25/2023 Active vancomycin 125 mg oral capsule (3 sources) Glycopeptide Antibacterial Start: 10-17-2023 End: 10-27-2023 take 1 capsule by mouth four times daily vancomycin (VANCOCIN) 125 mg capsule Indications: C. difficile diarrhea Take 1 capsule by mouth four times daily for 10 days. 40 capsule 10/17/2023 10/27/2023 Active Vitamin B Complex oral tablet (3 sources) Start: 07-02-2022 take 1 tablet by mouth once daily Vitamin B Complex oral tablet Dose = 1 tab(s), Oral, qDay, # 90 tab(s), 1 Refill(s), Pharmacy: [id number], Anemia of chronic disease, 176, cm, 07/02/22 10:24:00 EDT, Height Start Date: 07/02/22 Status: Ordered (20 sources) Start: 08-01-2024 Start: 06-30-2024 Start: 06-28-2024 Start: 05-20-2023 End: 08-01-2024 Start: 05-20-2023 Start: 02-04-2022 End: 04-20-2023 Start: 11-11-2021 Start: 11-05-2021 End: 11-11-2021 Completed/Discontinued Medications Medication Drug Class(es) Dates Sig (Normalized) Sig (Original) acetaminophen 325 mg oral tablet (20 sources) Start: 04-02-2017 End: 12-29-2017 Start: 04-02-2017 End: 12-29-2017 acetaminophen 325 mg / HYDRO codone bitartrate 5 mg oral tablet (20 sources) Opioid Agonist Start: 06-27-2023 End: 06-25-2024 Start: 06-27-2023 End: 06-25-2024 Hydrocodone-Acetaminophen 5- 325 mg tablet Discontinued 1 {tbl} PO 3 TIMES DAILY NEEDED June 27, 2023 12:00am June 25, 2024 6:31pm Start: 12-24-2017 End: 12-27-2017 Start: 12-24-2017 End: 12-27-2017 Hydrocodone-Acetaminophen 1 TABLET tablet Discontinued 1 {tbl} PO EVERY 6 HOURS NEEDED as needed for Pain 12 December 24, 2017 1:00am December 26, 2017 1:00am December 27, 2017 1:12am Start: 12-24-2017 End: 12-27-2017 Start: 12-24-2017 End: 12-27-2017 take 1 tablet by mouth every six hours as needed Hydrocodone-Acetaminophen Discontinued 1 TABLET PO EVERY 6 HOURS NEEDED 12 December 24, 2017 1:00am December 27, 2017 1:12am amLODIPine 5 mg oral tablet (20 sources) Dihydropyridine Calcium Channel Thiago Start: 09-08-2019 End: 08-10-2023 aspirin 81 mg chewable table t (20 sources) Platelet Aggregation Inhibitor, Nonsteroidal Anti-inflammatory Drug Start: 11-29-2016 End: 04-02-2017 Start: 03-28-2016 End: 08-10-2023 take 2 tablets by mouth once daily aspirin 81 mg chewable tablet Take 2 tablets by mouth once daily. 0 03/28/2016 08/10/2023 Discontinued (Discontinued by Patient) baclofen 20 mg oral tablet (2 sources) gamma-Aminobutyric Acid-ergic Agonist Start: 05-13-2022 End: 05-18-2022 baclofen 20 mg oral tablet Dose : 20 mg = 1 tab(s), Oral, TID, # 15 tab(s), 0 Refill(s) Start Date: 05/13/22 Stop Date: 05/18/22 Status: Ordered calcium chloride 0.0014 meq/ml / potassium chloride 0.004 meq/ml / sodium chloride 0.103 meq/ml / sodium lactate 0.028 meq/ml injectable solution (1 source) Start: 04-05-2024 End: 04-05-2024 take 30 mL intravenously every hour 30 mL/hr, INTRAVENOUS, CONTINUOUS, Starting on Wed04/05/24 at 1130, Until Wed04/05/24 at 1253, Preprocedure famotidine 40 mg oral tablet (19 sources) Histamine-2 Receptor Antagonist Start: 03-15-2023 End: 05-20-2023 Start: 10-01-2022 Pepcid 40 mg o ral tablet Dose : 40 mg = 1 tab(s), Oral, qHS, # 30 tab(s), 1 Refill(s), Pharmacy: [id number], GERD (gastroesophageal reflux disease), 176, cm, 10/01/22 10:16:00 EDT, Height, kg, 10/01/22 10:16:00 EDT, Dosing Weight Start Date: 10/01/22 Status: Ordered Start: 05-04-2022 End: 06-03-2022 Pepcid 40 mg oral tablet Dos e : 40 mg = 1 tab(s), Oral, qHS, # 30 tab(s), 0 Refill(s), Pharmacy: [id number], Epigastric abdominal pain GERD (gastroesophageal reflux disease), 177, cm, 05/04/22 11:08:00 EDT, Height Start Date: 05/04/22 Stop Date: 06/03/22 Status: Ordered FLUoxetine 20 mg oral capsul e (20 sources) Serotonin Reuptake Inhibitor Start: 04-02-2017 End: 06-10-2018 Start: 04-02-2017 End: 06-10-2018 End: 08-10-2023 take 1 capsule by mouth once daily FLUoxetine (PROZAC) 20 mg capsule Take 20 mg by mouth once daily. 0 08/10/2023 Discontinued (Discontinued by Patient) hydrALAZINE hydrochloride 25 mg oral tablet (20 sources) Arteriolar Vasodilator Start: 10-17-2020 End: 07-06-2024 Start: 09-08-2019 End: 05-11-2020 hydroCHLOROthiazide 12.5 mg oral tablet (20 sources) Thiazide Diuretic Start: 10-17-2020 End: 05-20-2023 Start: 08-24-2018 End: 05-11-2020 3 ml insulin detemir 100 unt/ml pen injector (20 sources) Insulin Analog Start: 07-02-2022 Levemir FlexTo uch 100 units/mL 3 mL Pen Subcutaneous, TID, 0 Refill(s) Start Date: 07/02/22 Status: Ordered Start: 02-04-2022 End: 04-20-2023 Insulin Detemir U-100 Discontinued 8 UNIT SC DAILY February 04, 2022 2:43pm April 20, 2023 3:31pm Start: 02-04-2022 Insulin Detemi r U-100 Active 8 UNIT SC DAILY February 04, 2022 2:43pm Start: 02-04-2022 Insulin Detemi r U-100 Active 8 UNIT SC DAILY February 04, 2022 1:43pm Start: 02-04-2022 Insulin Detemi r U-100 Active 8 UNIT SC DAILY February 04, 2022 1:43pm Start: 09-30-2021 End: 02-04-2022 Insulin Detemir U-100 100 un it/mL (3 mL) Insulin Pen Discontinued 5 U SC DAILY September 30, 2021 12:00am February 04, 2022 2:43pm Start: 04-18-2021 End: 02-04-2022 Start: 01-07-2021 End: 01-13-2022 inject 1 dose by subcutaneous injection once daily at bedtime Levemir FlexTouch 100 units/mL 3 mL Pen Dose : 60 unit(s) =, Subcutaneous, qHS, X 90 day(s), # 54 mL, 2 Refill(s), 01/13/22 8:51:00 EST, Pharmacy: [facility], DM type 2, goal HbA1c Start Date: 04/18/21 Stop Date: 01/13/22 Status: Ordered Start: 04-02-2020 End: 08-09-2023 Start: 04-02-2020 End: 05-11-2020 Insulin Detemir U-100 100 UN IT/ML solution Discontinued 15 U SC TWICE A DAY April 02, 2020 2:48am May 11, 2020 11:03am Start: 08-27-2018 End: 04-02-2020 inject 30 [IU] by subcutaneous injection at dinner Insulin Detemir U-100 100 UNIT/ML solution Discontinued 30 U subcut WITH DINNER 0 August 27, 2018 1:21pm April 02, 2020 2:48am Start: 06-20-2016 End: 05-11-2020 Start: 06-20-2016 End: 08-27-2018 inject 50 [IU] by subcutaneous injection at dinner Insulin Detemir U-100 100 UNIT/ML solution Discontinued 50 U subcut WITH DINNER June 20, 2016 12:00am August 27, 2018 1:22pm Insulin Detemir U-100 100 unit/mL (3 mL) Insulin Pen (2 sources) Start: 02-04-2022 End: 04-20-2023 Insulin Detemir U-100 100 unit/mL (3 mL) Insulin Pen Discontinued 8 U SC DAILY February 04, 2022 2:43pm April 20, 2023 3:31pm 3 ml insulin glulisine, human 100 unt/ml pen injector (3 sources) Insulin Analog Start: 03-28-2016 End: 08-09-2023 insulin glulisine (APIDRA SOLOSTAR) 100 unit/mL sub-Q pen Inject 12 Units subcutaneously daily before breakfast. 0 03/28/2016 08/09/2023 Discontinued Start: 03-28-2016 End: 08-09-2023 inject 6 [IU] by subcutaneous injection once daily before lunch insulin glulisine (APIDRA SOLOSTAR) 100 unit/mL sub-Q pen Inject 6 Units subcutaneously daily before lunch. 0 03/28/2016 08/09/2023 Discontinued Start: 03-28-2016 End: 08-09-2023 inject 8 [IU] by subcutaneous injection once daily before dinner insulin glulisine (APIDRA SOLOSTAR) 100 unit/mL sub-Q pen Inject 8 Units subcutaneously daily before dinner. 5 Pen 0 03/28/2016 08/09/2023 Discontinued 3 ml insulin lispro 100 unt/ ml pen injector (20 sources) Insulin Analog Start: 05-20-2023 End: 07-14-2024 Start: 05-20-2023 Start: 02-04-2022 End: 04-20-2023 Start: 02-04-2022 End: 04-20-2023 Insulin Lispro (Humalog Kwik pen Insulin) 100 unit/mL insulin pen Discontinued 5 U SC THREE TIMES DAILY BEFORE MEALS March 21, 2022 7:12pm April 20, 2023 3:31pm Start: 02-04-2022 End: 04-20-2023 lisinopril 20 mg oral tablet (20 sources) Angiotensin Converting Enzyme Inhibitor Start: 06-20-2016 End: 08-10-2023 Start: 06-20-2016 End: 06-10-2018 take 1 tablet by mouth once daily Lisinopril 20 MG tablet Discontinued 20 mg PO DAILY June 20, 2016 12:00am June 10, 2018 4:51pm magnesium hydroxide 80 mg/ml oral suspension (1 source) Start: 03-28-2016 End: 08-09-2023 take 30 mL by mouth once daily as needed for constipation magnesium hydroxide (MOM) 400 mg/5 mL suspension Take 30 mL by mouth once daily as needed for Constipation. 0 03/28/2016 08/09/2023 Discontinued (Course of therapy completed) meloxicam 15 mg oral tablet (20 sources) Nonsteroidal Anti-inflammatory Drug Start: 03-13-2021 End: 11-05-2021 omeprazole 40 mg delayed release oral capsule (20 sources) Proton Pump Inhibitor Start: 06-10-2018 End: 08-09-2023 Start: 01-25-2018 End: 06-10-2018 Start: 01-25-2018 End: 06-10-2018 ondansetron 8 mg disintegrat ing oral tablet (20 sources) Serotonin-3 Receptor Antagonist Start: 06-27-2023 End: 06-25-2024 Start: 11-01-2022 End: 04-20-2023 PHENobarbital 32.4 mg oral t ablet (20 sources) Start: 11-08-2021 End: 02-04-2022 potassium chloride 10 meq ex tended release oral capsule (20 sources) Start: 07-20-2022 End: 04-20-2023 Start: 07-20-2022 End: 04-20-2023 Start: 11-08-2021 End: 05-20-2023 Start: 11-08-2021 End: 05-20-2023 terbinafine 250 mg oral tablet (20 sources) Allylamine Antifungal Start: 09-30-2021 End: 11-05-2021 therapeutic multivitamin (THERA VITAMIN) tablet (1 source) Start: 03-28-2016 End: 08-10-2023 take 1 tablet by mouth once daily at breakfast therapeutic multivitamin (THERA VITAMIN) tablet Take 1 tablet by mouth daily with breakfast. 0 03/28/2016 08/10/2023 Discontinued (Discontinued by Patient) Problems Active Problems Problem Classification Problem Date Documented Da te Episodic/Chronic Abdominal pain (20 sources) Epigastric pain; 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: [Abdominal pain] Onset: 4 05-04-2022 Episodic Acute cerebrovascular disease (20 sources) Cerebrovascular accident; 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: [Cerebral infarction, unspecified] Onset: 4 11-16-2021 Chronic Adjustment disorders (20 sources) Reactive depression (situational); 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: [Adjustment disorder with depressed mood] 09-09-2019 Chronic Alcohol-related disorders (20 sources) Alcoholism; 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: [Chronic alcoholism in remission] Onset: 7 04-13-2019 Chronic Alcohol-related disorders (20 sources) Alcohol intoxication; 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: [Alcohol use, unspecified with intoxication, unspecified] Episodic Anxiety disorders (12 sources) Anxiety 10-04-2020 Chronic Anxiety disorders (20 sources) Anger reaction; 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: [Irritability and anger] 09-09-2019 Episodic Aortic; peripheral; and visceral artery aneurysms (20 sources) Aneurysm of thoracic aorta; 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: [Thoracic aortic aneurysm, without rupture] Onset: 7 Resolved: 7 11-16-2021 Chronic Cardiac dysrhythmias (20 sources) Sick sinus syndrome; 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: [Sick sinus syndrome] Chronic Cardiac dysrhythmias (20 sources) Palpitations; 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: [Palpitations] 06-08-2018 Episodic Chronic kidney disease (20 sources) Chronic kidney disease stage 3; 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: [Chronic kidney disease, stage 3 unspecified] Onset: 4 08-07-2021 Chronic Chronic kidney disease (1 source) Chronic kidney disease; 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: [Stage 3 chronic kidney disease, unspecified whether stage 3a or 3b CKD (HCC)] Onset: 4 Coagulation and hemorrhagic disorders (20 sources) Thrombocytopenic disorder; 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: [Thrombocytopenia, unspecified] Onset: 5 06-26-2024 Chronic Conditions associated with dizziness or vertigo (20 sources) Lightheadedness; 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: [Dizziness and giddiness] Onset: 4 11-16-2021 Episodic Conduction disorders (20 sources) H/O: cardiac pacemaker in situ; 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: [Right bundle branch block] Onset: 7 09-06-2018 Chronic Congestive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 0-5 [facility] Comment on above: Performed By: #### L 500.4050, L500.4100, L100.0100 ####[facility] [address] [place], [address] Erythrocyte distribution width (RBC) [Ratio] 14.5 % Normal 11.6-14.6 [facility] Comment on above: Performed By: #### L 500.4050, L500.4100, L100.0100 ####[facility] [address] [place], [address] Hematocrit (Bld) [Volume fraction] 29.4 % Low 40-54 [facility] Comment on above: Performed By: #### L 500.4050, L500.4100, L100.0100 ####[facility] [address] [place], [address] Hemoglobin (Bld) [Mass/Vol] 9.7 g/dL Low 13.0-16.5 [facility] Comment on above: Performed By: #### L 500.4050, L500.4100, L100.0100 ####[facility] [address] [place], [address] IG% 0.200 Normal 0.0-0.9 [facility] Comment on above: Result Comment: IG% - Immature Granulocytes (promyelocytes, myelocytes andmetamyelocytes) > 1% indicates that a LEFT SHIFT is Present. Performed By: #### L 500.4050, L500.4100, L100.0100 ####[facility] [address] [place], [address] Lymphocytes/100 WBC (Bld) 18.5 % Low 19-41 [facility] Comment on above: Performed By: #### L 500.4050, L500.4100, L100.0100 ####[facility] [address] [place], [address] MCH (RBC) [Entitic mass] 36.3 pg High 27.0-32.0 [facility] Comment on above: Performed By: #### L 500.4050, L500.4100, L100.0100 ####[facility] [address] [place], [address] MCHC (RBC) [Mass/Vol] 33.0 g/dL Normal 32-36 [facility] Comment on above: Performed By: #### L 500.4050, L500.4100, L100.0100 ####[facility] [address] [place], [address] MCV (RBC) [Entitic vol] 110.1 fL High 80-94 [facility] Comment on above: Performed By: #### L 500.4050, L500.4100, L100.0100 ####[facility] [address] [place], [address] Monocytes/100 WBC (Bld) 12.9 % High 0-10 [facility] Comment on above: Performed By: #### L 500.4050, L500.4100, L100.0100 ####[facility] [address] [place], [address] Neutrophils/100 WBC (Bld) 64.6 % Normal 47-70 [facility] Comment on above: Performed By: #### L 500.4050, L500.4100, L100.0100 ####[facility] [address] [place], [address] Nucleated RBC (Bld) [#/Vol] 0 10*3/uL Normal 0-5 [facility] Comment on above: Performed By: #### L 500.4050, L500.4100, L100.0100 ####[facility] [address] [place], [address] Platelet mean volume (Bld) [Entitic vol] 11.5 fL Normal 6.2-12.0 [facility] Comment on above: Performed By: #### L 500.4050, L500.4100, L100.0100 ####[facility] [address] [place], [address] Platelets (Bld) [#/Vol] 159 10*3/uL Normal 150-450 [facility] Comment on above: Performed By: #### L 500.4050, L500.4100, L100.0100 ####[facility] [address] [place], [address] RBC (Bld) [#/Vol] 2.67 10*6/uL Low 4.6-6.[address] [facility] Comment on above: Performed By: #### L 500.4050, L500.4100, L100.0100 ####[facility] [address] [place], [address] RDW SD 59.0 fl High 35.1-43.9 [facility] Comment on above: Performed By: #### L 500.4050, L500.4100, L100.0100 ####[facility] [address] [place], [address] WBC (Bld) [#/Vol] 5.0 10*3/uL Normal 4.4-11.0 [facility] Comment on above: Performed By: #### L 500.4050, L500.4100, L100.0100 ####[facility] [address] [place], [address] Calculated very low density lipoprotein (VLDL) cholesterol measurementOrdered By: Iman Aguayo on 08-02-2024 Calculated very low density lipoprotein (VLDL) cholesterol measurement 26 mg/dL 5-40 [facility] Comprehensive Metabolic Prof ilon 08-02-2024 Albumin [Mass/Vol] 2.6 g/dL Low 3.4-4.8 [facility] Comment on above: Performed By: #### L 500.4050, L500.4100, L100.0100 ####[facility] [address] [place], [address] Albumin/Globulin [Mass ratio] 1.0 {ratio} Normal 0.9-2.4 [facility] Comment on above: Performed By: #### L 500.4050, L500.4100, L100.0100 ####[facility] [address] [place], [address] ALK PHOS 101 U/L Normal 40-129 [facility] Comment on above: Performed By: #### L 500.4050, L500.4100, L100.0100 ####[facility] [address] [place], [address] ALT [Catalytic activity/Vol] 13 U/L Normal <=46 [facility] Comment on above: Performed By: #### L 500.4050, L500.4100, L100.0100 ####[facility] [address] [place], [address] AST [Catalytic activity/Vol] 35 U/L Normal <=37 [facility] Comment on above: Performed By: #### L 500.4050, L500.4100, L100.0100 ####[facility] [address] [place], [address] Bilirubin [Mass/Vol] 0.31 mg/dL Normal 0.00-1.30 [facility] Comment on above: Performed By: #### L 500.4050, L500.4100, L100.0100 ####[facility] [address] [place], [address] BUN/CRE 8.5 RATIO Low 10-20 [facility] Comment on above: Performed By: #### L 500.4050, L500.4100, L100.0100 ####[facility] [address] [place], [address] Calcium [Mass/Vol] 8.1 mg/dL Normal 7.6-11.0 [facility] Comment on above: Performed By: #### L 500.4050, L500.4100, L100.0100 ####[facility] [address] [place], [address] Chloride [Moles/Vol] 105 mmol/L Normal 98-108 [facility] Comment on above: Performed By: #### L 500.4050, L500.4100, L100.0100 ####[facility] [address] [place], [address] CO2 [Moles/Vol] 22.3 mmol/L Normal 21.0-32.0 [facility] Comment on above: Performed By: #### L 500.4050, L500.4100, L100.0100 ####[facility] [address] [place], [address] Creatinine [Mass/Vol] 1.09 mg/dL Normal 0.70-1.20 [facility] Comment on above: Performed By: #### L 500.4050, L500.4100, L100.0100 ####[facility] [address] [place], [address] ECRCL 61.32 ml/min Normal 50-250 [facility] Comment on above: Performed By: #### L 500.4050, L500.4100, L100.0100 ####[facility] [address] [place], [address] GAP 11 Normal 5-15 [facility] Comment on above: Performed By: #### L 500.4050, L500.4100, L100.0100 ####[facility] [address] [place], [address] GFR/1.73 sq M.predicted among non-blacks MDRD (S/P/Bld) [Vol rate/Area] 77 mL/min/{1.73_m2} Normal >60 [facility] Comment on above: Result Comment: mL/m in/1.73m2 CKD-EPI Creatinine Equation (2020) Performed By: #### L 500.4050, L500.4100, L100.0100 ####[facility] [address] [place], [address] Globulin (S) [Mass/Vol] 2.6 g/dL Normal 2.2-4.2 [facility] Comment on above: Performed By: #### L 500.4050, L500.4100, L100.0100 ####[facility] [address] [place], [address] Glucose [Mass/Vol] 123 mg/dL High 70-99 [facility] Comment on above: Performed By: #### L 500.4050, L500.4100, L100.0100 ####[facility] [address] [place], [address] Potassium [Moles/Vol] 3.5 mmol/L Normal 3.3-5.1 [facility] Comment on above: Performed By: #### L 500.4050, L500.4100, L100.0100 ####[facility] [address] [place], [address] Sodium [Moles/Vol] 138 mmol/L Normal 133-145 [facility] Comment on above: Performed By: #### L 500.4050, L500.4100, L100.0100 ####[facility] [address] [place], [address] T PROT 5.1 g/dL Low 5.9-8.4 [facility] Comment on above: Performed By: #### L 500.4050, L500.4100, L100.0100 ####[facility] [address] [place], [address] Urea nitrogen [Mass/Vol] 9 mg/dL Normal 4-19 [facility] Comment on above: Performed By: #### L 500.4050, L500.4100, L100.0100 ####[facility] [address] [place], [address] Consultation - Surgicalon Consultation - Surgical Normal [facility] Electrocardiogram reportOrde red By: Trung Bob on 08-02-2024 EKG study [facility] Work Phone: [phone] 08-02-2024 Trop T High Sen 106 ng/L Invalid Interpretation Code <=22 [facility] Comment on above: Result Comment: Crit ical Result(s) Called at: 0224 by: MATTHEW HUBER TO RNJGALLOWAY.??Results read back by same. Performed By: #### L 499.0042 ####[facility] [address] [place], [address] L499.0043on 08-02-2024 Trop T High Sen 95 ng/L Invalid Interpretation Code <=22 [facility] Comment on above: Result Comment: Crit ical Result(s) Called at: 4977 by: MATTHEW HUBER TO JONNY JASSOENGER. ??Results read back by same. Performed By: #### L 499.0043 ####[facility] [address] [place], [address] LDL calc ser/plasOrdered By: Iman Aguayo on 08-02-2024 Cholesterol in LDL [Mass/Vol] 41 mg/dL [facility] Lipid Profileon 08-02-2024 CHOL:HDL 3.06 Normal [facility] Comment on above: Performed By: #### L 500.4050, L500.4100, L100.0100 ####[facility] [address] [facility] [place], [address] Cholesterol [Mass/Vol] 100 mg/dL Normal <=[address] [facility] Comment on above: Result Comment: Chol esterol level, Desirable <200 mg/dLBorderline high cholesterol 200-239 mg/dLHigh cholesterol >=240 mg/dLRecommendations of the NCEP Adult Treatment Panel for thefollowing risk-cutoff thresholds for the [place] Americanpulation. Performed By: #### L 500.4050, L500.4100, L100.0100 ####[facility] [address] [place], [address] Cholesterol in HDL [Mass/Vol] 33 mg/dL Low [facility] Comment on above: Result Comment: Lisa onal Cholesterol Education Program (NCEP) guidelines:<40 mg/dL: Low HDL-cholesterol (major risk factor for CHD)>= 60 mg/dL: High HDL-cholesterol (negative risk factor forCHD)HDL-cholesterol is affected by a number of factors, e.g.smoking, exercise, hormones, sex and age. Performed By: #### L 500.4050, L500.4100, L100.0100 ####[facility] [address] [place], [address] Cholesterol in LDL [Mass/Vol] 41 mg/dL Normal [facility] Comment on above: Result Comment: Bord zpjrxp=996-074 mg/dL Higher Fzig=647 mg/dL or greater Performed By: #### L 500.4050, L500.4100, L100.0100 ####[facility] [address] [place], [address] Cholesterol in VLDL [Mass/Vol] 26 mg/dL Normal 5-40 [facility] Comment on above: Performed By: #### L 500.4050, L500.4100, L100.0100 ####[facility] [address] [place], [address] Triglyceride [Mass/Vol] 132 mg/dL Normal [facility] Comment on above: Result Comment: The drugs N-Acetylcysteine and Metamizole may falselydepress this assay.Normal range: <150 mg/dLBorderline High: 150-199 mg/dLHigh: 200-499 mg/dLVery High: >500 mg/dL Performed By: #### L 500.4050, L500.4100, L100.0100 ####[facility] [address] [place], [address] No Panel InformationOrdered By: Iman Aguayo on 08-02-2024 35 U/L <38 [facility] Serum globulin measurementOr dered By: Iman Aguayo on 08-02-2024 Globulin (S) [Mass/Vol] 2.6 g/dL 2.2-4.2 [facility] Serum or plasma alanine padilla otransferase (ALT) measurementOrdered By: Iman Aguayo on 08-02-2024 ALT [Catalytic activity/Vol] 13 U/L <47 [facility] Serum or plasma albumin luciana urement (mass/volume)Ordered By: Iman Aguayo on 08-02-2024 Albumin [Mass/Vol] 2.6 g/dL Low 3.4-4.8 [facility] Serum or plasma albumin/glob ulin mass ratioOrdered By: Iman Aguayo on 08-02-2024 Albumin/Globulin [Mass ratio] 1.0 {ratio} 0.9-2.4 [facility] Serum or plasma alkaline nolan sphatase measurementOrdered By: Iman Aguayo on 08-02-2024 ALP [Catalytic activity/Vol] 101 U/L 40-129 [facility] Serum or plasma cholesterol in HDL measurement (mass/volume)Ordered By: Iman Aguayo on 08-02-2024 Cholesterol in HDL [Mass/Vol] 33 mg/dL Low >40 [facility] Serum or plasma cholesterol measurement (mass/volume)Ordered By: Iman Aguayo on 08-02-2024 Cholesterol [Mass/Vol] 100 mg/dL <[address] [facility] TSH DL <= 0.005 mIU/L QnOrde red By: Iman Aguayo on 08-02-2024 TSH Qn 2.140 uIU/mL 0.300-4.200 [facility] Thyroid Stim Hormone (TSH)on 08-02-2024 TSH 2.140 uIU/mL Normal 0.300-4.200 [facility] Comment on above: Performed By: #### L 501.9520 ####[facility] [address] [place], [place], [id number] Total proteinOrdered By: Aut christon Olivier on 08-02-2024 Protein [Mass/Vol] 5.1 g/dL Low 5.9-8.4 [facility] Troponin T.cardiac [Mass/vol ume] in Serum or Plasma by High sensitivity methodOrdered By: Iman Aguayo on 08-02-2024 Troponin T.cardiac High sensitivity method [Mass/Vol] 95 ng/L High <22 [facility] Troponin T.cardiac High sensitivity method [Mass/Vol] 106 ng/L High <22 [facility] 12 Lead EKGon 08-01-2024 12 Lead EKG Normal [facility] Abdomen/Pelvis W IV Cont ONL Yon 08-01-2024 Abdomen/Pelvis W IV Cont ONLY Normal [facility] Absolute lymphocyte countOrd ered By: Tierney Macdonald on 08-01-2024 Lymphocytes Auto (Unsp spec) [#/Vol] 0.87 10*3/uL 0.83-4.51 [facility] Anion gap in Serum or Plasma Ordered By: Tierney Macdonald on 08-01-2024 Anion gap [Moles/Vol] 16 mmol/L High 5-15 [facility] Automated blood erythrocyte countOrdered By: Tierney Macdonald on 08-01-2024 RBC (Bld) [#/Vol] 3.08 10*6/uL Low 4.6-6.[address] [facility] Comment on above: Performed By: #### L 100.0100, L503.7505, L500.4050, L501.2450, L300.8000 ####[facility] [address] [place], [place], [address] Automated blood hematocrit ( percentage)Ordered By: Tierney Macdonald on 08-01-2024 Hematocrit (Bld) [Volume fraction] 34.0 % Low 40-54 [facility] Comment on above: Performed By: #### L 100.0100, L503.7505, L500.4050, L501.2450, L300.8000 ####[facility] [address] [place], [place], [address] Automated lymphocyte count a s percentage of total leukocytesOrdered By: Tierney Macdonald on 08-01-2024 Lymphocytes/100 WBC Auto (Unsp spec) 16.1 % Low 19-41 [facility] BUN/creatinine ratioOrdered By: Tierney Macdonald on 08-01-2024 Urea nitrogen/Creatinine [Mass ratio] 7.7 mg/mg Low 10-20 [facility] Basophil percentageOrdered B y: Tierney Macdonald on 08-01-2024 Basophils/100 WBC (Bld) 1.3 % High 0-1 [facility] Comment on above: Performed By: #### L 100.0100, L503.7505, L500.4050, L501.2450, L300.8000 ####[facility] [address] [place], [address] Bedside Glucoseon 08-01-2024 FINGERSTICK GLU 229 mg/dL High 74-106 [facility] Comment on above: Result Comment: DAYANARA MORENO OF PATIENT CARE PER NURSING PROTOCOL Performed By: #### L 501.080 ####[facility] [address] [place], [address] Bilirubin, totalOrdered By: Tierney Macdonald on 08-01-2024 Bilirubin [Mass/Vol] 0.37 mg/dL 0.00-1.30 [facility] CBC W/Diff, Automatedon 07-10 Absolute Lymph 0.87 X10 3/uL Normal 0.83-4.51 [facility] Comment on above: Performed By: #### L 100.0100, L503.7505, L500.4050, L501.2450, L300.8000 ####[facility] [address] [place], [address] Absolute Neut 4.0 X10 3/uL Normal 2.0-7.7 [facility] Comment on above: Performed By: #### L 100.0100, L503.7505, L500.4050, L501.2450, L300.8000 ####[facility] [address] [place], [address] IG% 0.400 Normal 0.0-0.9 [facility] Comment on above: Result Comment: IG% - Immature Granulocytes (promyelocytes, myelocytes andmetamyelocytes) > 1% indicates that a LEFT SHIFT is Present. Performed By: #### L 100.0100, L503.7505, L500.4050, L501.2450, L300.8000 ####[facility] [address] [place], [address] Lymphocytes/100 WBC (Bld) 16.1 % Low 19-41 [facility] Comment on above: Performed By: #### L 100.0100, L503.7505, L500.4050, L501.2450, L300.8000 ####[facility] [address] [place], [address] MCHC (RBC) [Mass/Vol] 32.4 g/dL Normal 32-36 [facility] Comment on above: Performed By: #### L 100.0100, L503.7505, L500.4050, L501.2450, L300.8000 ####[facility] [address] [place], [address] Nucleated RBC (Bld) [#/Vol] 0 10*3/uL Normal 0-5 [facility] Comment on above: Performed By: #### L 100.0100, L503.7505, L500.4050, L501.2450, L300.8000 ####[facility] [address] [place], [address] Platelet mean volume (Bld) [Entitic vol] 11.9 fL Normal 6.2-12.0 [facility] Comment on above: Performed By: #### L 100.0100, L503.7505, L500.4050, L501.2450, L300.8000 ####[facility] [address] [place], [address] RDW SD 58.4 fl High 35.1-43.9 [facility] Comment on above: Performed By: #### L 100.0100, L503.7505, L500.4050, L501.2450, L300.8000 ####[facility] [address] [place], [address] CTA Chest W/WO Contraston CTA Chest W/WO Contrast Normal [facility] Carbon dioxide, total [Moles /volume] in Central venous bloodOrdered By: Tierney Macdonald on 08-01-2024 CO2 [Moles/Vol] 18.6 mmol/L Low 21.0-32.0 [facility] Chest PA and Lateralon 08-01 Chest PA and Lateral Normal [facility] Chloride assayOrdered By: Sudeep Macdonald on 08-01-2024 Chloride [Moles/Vol] 103 mmol/L 98-108 [facility] Comprehensive Metabolic Prof ilon 08-01-2024 Albumin [Mass/Vol] 3.0 g/dL Low 3.4-4.8 [facility] Comment on above: Performed By: #### L 100.0100, L503.7505, L500.4050, L501.2450, L300.8000 ####[facility] [address] [place], [address] Albumin/Globulin [Mass ratio] 0.9 {ratio} Normal 0.9-2.4 [facility] Comment on above: Performed By: #### L 100.0100, L503.7505, L500.4050, L501.2450, L300.8000 ####[facility] [address] [place], [address] ALK PHOS 121 U/L Normal 40-129 [facility] Comment on above: Performed By: #### L 100.0100, L503.7505, L500.4050, L501.2450, L300.8000 ####[facility] [address] [place], [address] ALT [Catalytic activity/Vol] 20 U/L Normal <=46 [facility] Comment on above: Performed By: #### L 100.0100, L503.7505, L500.4050, L501.2450, L300.8000 ####[facility] [address] [place], [address] AST [Catalytic activity/Vol] 48 U/L High <=37 [facility] Comment on above: Result Comment: Hemo lysis present, Results??could be affected.?? Performed By: #### L 100.0100, L503.7505, L500.4050, L501.2450, L300.8000 ####[facility] [address] [place], [address] Bilirubin [Mass/Vol] 0.37 mg/dL Normal 0.00-1.30 [facility] Comment on above: Performed By: #### L 100.0100, L503.7505, L500.4050, L501.2450, L300.8000 ####[facility] [address] [place], [address] BUN/CRE 7.7 RATIO Low 10-20 [facility] Comment on above: Performed By: #### L 100.0100, L503.7505, L500.4050, L501.2450, L300.8000 ####[facility] [address] [place], [address] Calcium [Mass/Vol] 8.4 mg/dL Normal 7.6-11.0 [facility] Comment on above: Performed By: #### L 100.0100, L503.7505, L500.4050, L501.2450, L300.8000 ####[facility] [address] [place], [address] Chloride [Moles/Vol] 103 mmol/L Normal 98-108 [facility] Comment on above: Performed By: #### L 100.0100, L503.7505, L500.4050, L501.2450, L300.8000 ####[facility] [address] [place], [address] CO2 [Moles/Vol] 18.6 mmol/L Low 21.0-32.0 [facility] Comment on above: Performed By: #### L 100.0100, L503.7505, L500.4050, L501.2450, L300.8000 ####[facility] [address] [place], [address] Creatinine [Mass/Vol] 1.17 mg/dL Normal 0.70-1.20 [facility] Comment on above: Performed By: #### L 100.0100, L503.7505, L500.4050, L501.2450, L300.8000 ####[facility] [address] [place], [address] GAP 16 High 5-15 [facility] Comment on above: Performed By: #### L 100.0100, L503.7505, L500.4050, L501.2450, L300.8000 ####[facility] [address] [place], [address] GFR/1.73 sq M.predicted among non-blacks MDRD (S/P/Bld) [Vol rate/Area] 70 mL/min/{1.73_m2} Normal >60 [facility] Comment on above: Result Comment: mL/m in/1.73m2 CKD-EPI Creatinine Equation (2020) Performed By: #### L 100.0100, L503.7505, L500.4050, L501.2450, L300.8000 ####[facility] [address] [place], [address] Globulin (S) [Mass/Vol] 3.3 g/dL Normal 2.2-4.2 [facility] Comment on above: Performed By: #### L 100.0100, L503.7505, L500.4050, L501.2450, L300.8000 ####[facility] [address] [place], [address] Glucose [Mass/Vol] 159 mg/dL High 70-99 [facility] Comment on above: Performed By: #### L 100.0100, L503.7505, L500.4050, L501.2450, L300.8000 ####[facility] [address] [place], [address] Potassium [Moles/Vol] 3.8 mmol/L Normal 3.3-5.1 [facility] Comment on above: Result Comment: Hemo lysis present, Results??could be affected.?? Performed By: #### L 100.0100, L503.7505, L500.4050, L501.2450, L300.8000 ####[facility] [address] [place], [address] Sodium [Moles/Vol] 137 mmol/L Normal 133-145 [facility] Comment on above: Performed By: #### L 100.0100, L503.7505, L500.4050, L501.2450, L300.8000 ####[facility] [address] [place], [address] T PROT 6.3 g/dL Normal 5.9-8.4 [facility] Comment on above: Performed By: #### L 100.0100, L503.7505, L500.4050, L501.2450, L300.8000 ####[facility] [address] [place], [address] Urea nitrogen [Mass/Vol] 9 mg/dL Normal 4-19 [facility] Comment on above: Performed By: #### L 100.0100, L503.7505, L500.4050, L501.2450, L300.8000 ####[facility] [address] [place], [address] D-Dimer Quantitative (DVT/PE )on 08-01-2024 D-DIMER QUANT 1.39 FEU/ug/m Invalid Interpretation Code 0.27-0.49 [facility] Comment on above: Result Comment: CRIT ICAL VALUE CALLED TO SEBASTIAN LOWE08/01/24 1635 Angie Knox.RESULTS READ BACK BY SAME.D-Dimer ELEVATED (>0.49): Additional studies and clinicalassessments are indicated to conclude diagnosis of:Deep Vein Thrombosis (DVT) or Pulmonary Embolism (PE) Performed By: #### L 100.0100, L503.7505, L500.4050, L501.2450, L300.8000 ####[facility] [address] [place], [place], [id number] Emergency Department Summary on 08-01-2024 Emergency Department Summary Normal [facility] Eosinophil percentageOrdered By: Tierney Macdonald on 08-01-2024 Eosinophils/100 WBC (Bld) 0.9 % Normal 0-5 [facility] Comment on above: Performed By: #### L 100.0100, L503.7505, L500.4050, L501.2450, L300.8000 ####[facility] [address] [place], [place], [id number] Erythrocyte distribution wid th ratioOrdered By: Tierney Macdonald on 08-01-2024 Erythrocyte distribution width (RBC) [Ratio] 14.3 % Normal 11.6-14.6 [facility] Comment on above: Performed By: #### L 100.0100, L503.7505, L500.4050, L501.2450, L300.8000 ####[facility] [address] [place], [place], [id number] Erythrocyte distribution wid th standard deviationOrdered By: Tierney Macdonald on 08-01-2024 Erythrocyte distribution width (RBC) [Ratio] 58.4 fl High 35.1-43.9 [facility] Glomerular filtration rate ( GFR) estimation/1.73 sq m using serum, plasma, or whole bOrdered By: Tierney Macdonald on 08-01-2024 GFR/1.73 sq M.predicted among non-blacks MDRD (S/P/Bld) [Vol rate/Area] 70 mL/min/{1.73_m2} >60 [facility] H AND P Exam - Hospitaliston 08-01-2024 H&P Exam - Hospitalist Normal [facility] Hemoglobin measurementOrdere d By: Tierney Macdonald on 08-01-2024 Hemoglobin (Bld) [Mass/Vol] 11.0 g/dL Low 13.0-16.5 [facility] Comment on above: Performed By: #### L 100.0100, L503.7505, L500.4050, L501.2450, L300.8000 ####[facility] [address] [place], [address] Immature granulocytes/100 WB C Auto (Bld)Ordered By: Tierney Macdonald on 08-01-2024 Immature granulocytes/100 WBC (Bld) 0.400 % 0.0-0.9 [facility] L501.4021on 08-01-2024 Trop T High Sen 96 ng/L Invalid Interpretation Code <=22 [facility] Comment on above: Result Comment: Crit ical Result(s) Called at: 2340 by: MATTHEW HUBER TO ELISJSONELIA.??Results read back by same. Performed By: #### L 501.4021 ####[facility] [address] [place], [address] L503.7505on 08-01-2024 Natriuretic peptide B (Bld) [Mass/Vol] 30137 pg/mL High <=900 [facility] Comment on above: Result Comment: Hear t Failure Unlikely: < 300 pg/mLHeart Failure Likely< 50 Years: > 450 pg/mL50-75 Years: > 900 pg/mL>75 Years: > 1800 pg/mL Performed By: #### L 100.0100, L503.7505, L500.4050, L501.2450, L300.8000 ####[facility] [address] [place], [address] Lipaseon 08-01-2024 Lipase [Catalytic activity/Vol] 9 U/L Low 13-75 [facility] Comment on above: Result Comment: Mary Anne zamorano note:LIPASE revised reference range effective 22.New Lipase methodology. Expected to produce lower valuesthan the previous assay method.NEW Reference Range: 13 - 75 U/L Performed By: #### L 100.0100, L503.7505, L500.4050, L501.2450, L300.8000 ####[facility] [address] [place], [address] MCV (mean corpuscular volume ) determinationOrdered By: Tierney Macdonald on 08-01-2024 MCV (RBC) [Entitic vol] 110.4 fL High 80-94 [facility] Comment on above: Performed By: #### L 100.0100, L503.7505, L500.4050, L501.2450, L300.8000 ####[facility] [address] [place], [address] Magnesiumon 08-01-2024 Magnesium [Mass/Vol] 2.2 mg/dL Normal 1.5-2.2 [facility] Comment on above: Order Comment: Comme nts: May add to ED labsComments: may add to ED labs Performed By: #### L 501.5200, L501.2300 ####[facility] [address] [place], [address] Magnesium measurement (mass/ volume)Ordered By: Iman Aguayo on 08-01-2024 Magnesium (Unsp spec) [Mass/Vol] 2.2 mg/dL 1.5-2.2 [facility] Mean corpuscular hemoglobin (MCH) determinationOrdered By: Tierney Macdonald on 08-01-2024 MCH (RBC) [Entitic mass] 35.7 pg High 27.0-32.0 [facility] Comment on above: Performed By: #### L 100.0100, L503.7505, L500.4050, L501.2450, L300.8000 ####[facility] [address] [place], [address] Monocyte percentageOrdered B y: Tierney Macdonald on 08-01-2024 Monocytes/100 WBC (Bld) 8.0 % Normal 0-10 [facility] Comment on above: Performed By: #### L 100.0100, L503.7505, L500.4050, L501.2450, L300.8000 ####[facility] [address] [place], [address] Natriuretic peptide.B prohor irene N-Terminal [Mass/volume] in Serum or PlasmaOrdered By: Tierney Macdonald on 08-01-2024 Natriuretic peptide.B prohormone N-Terminal [Mass/Vol] 96264 pg/mL High <900 [facility] Neutrophil percentageOrdered By: Tierney Macdonald on 08-01-2024 Neutrophils/100 WBC (Bld) 73.3 % High 47-70 [facility] Comment on above: Performed By: #### L 100.0100, L503.7505, L500.4050, L501.2450, L300.8000 ####[facility] [address] [place], [address] No Panel InformationOrdered By: Tierney Macdonald on 08-01-2024 48 U/L High <38 [facility] Phosphoruson 08-01-2024 Phosphate [Mass/Vol] 2.8 mg/dL Normal 2.7-4.5 [facility] Comment on above: Order Comment: Comme nts: May add to ED labsComments: may add to ED labs Performed By: #### L 501.5200, L501.2300 ####[facility] [address] [place], [address] Platelet countOrdered By: Sudeep Macdonald on 08-01-2024 Platelets (Bld) [#/Vol] 189 10*3/uL Normal 150-450 [facility] Comment on above: Performed By: #### L 100.0100, L503.7505, L500.4050, L501.2450, L300.8000 ####[facility] [address] [place], [address] Potassium measurement (mass/ volume)Ordered By: Tierney Macdonald on 08-01-2024 Potassium (Unsp spec) [Mass/Vol] 3.8 mmol/L 3.3-5.1 [facility] Serum creatinine measurement (mass/volume)Ordered By: Tierney Macdonald on 08-01-2024 Creatinine [Mass/Vol] 1.17 mg/dL 0.70-1.20 [facility] Serum globulin measurementOr dered By: Tierney Macdonald on 08-01-2024 Globulin (S) [Mass/Vol] 3.3 g/dL 2.2-4.2 [facility] Serum glucose measurement (m ass/volume)Ordered By: Tierney Macdonald on 08-01-2024 Glucose [Mass/Vol] 159 mg/dL High 70-99 [facility] Serum or plasma alanine padilla otransferase (ALT) measurementOrdered By: Tierney Macdonald on 08-01-2024 ALT [Catalytic activity/Vol] 20 U/L <47 [facility] Serum or plasma albumin luciana urement (mass/volume)Ordered By: Tierney Madconald on 08-01-2024 Albumin [Mass/Vol] 3.0 g/dL Low 3.4-4.8 [facility] Serum or plasma albumin/glob ulin mass ratioOrdered By: Tierney Macdonald on 08-01-2024 Albumin/Globulin [Mass ratio] 0.9 {ratio} 0.9-2.4 [facility] Serum or plasma alkaline nolan sphatase measurementOrdered By: Tierney Macdonald on 08-01-2024 ALP [Catalytic activity/Vol] 121 U/L 40-129 [facility] Serum or plasma calcium luciana urement (mass/volume)Ordered By: Tierney Macdonald on 08-01-2024 Calcium [Mass/Vol] 8.4 mg/dL 7.6-11.0 [facility] Serum or plasma urea nitroge n measurement (mass/volume)Ordered By: Tierney Macdonald on 08-01-2024 Urea nitrogen [Mass/Vol] 9 mg/dL 4-19 [facility] Sodium levelOrdered By: Alanis Macdonald on 08-01-2024 Sodium [Moles/Vol] 137 mmol/L 133-145 [facility] Total proteinOrdered By: Adrianna Macdonald on 08-01-2024 Protein [Mass/Vol] 6.3 g/dL 5.9-8.4 [facility] Troponin T.cardiac [Mass/vol ume] in Serum or Plasma by High sensitivity methodOrdered By: Iman Aguayo on 08-01-2024 Troponin T.cardiac High sensitivity method [Mass/Vol] 96 ng/L High <22 [facility] White blood cell (WBC) count Ordered By: Tierney Macdonald on 08-01-2024 WBC (Bld) [#/Vol] 5.4 10*3/uL Normal 4.4-11.0 [facility] Comment on above: Performed By: #### L 100.0100, L503.7505, L500.4050, L501.2450, L300.8000 ####[facility] [address] [place], [address] Basic Metabolic Profile (BMP )on 07-15-2024 BUN Normal 4-19 [facility] Comment on above: Result Comment: Canc elled via OM: Order cancelled - Patient discharged Performed By: #### L 100.0100, L500.2500 ####[facility] [address] [place], [address] BUN/CRE Normal 10-20 [facility] Comment on above: Result Comment: Canc elled via OM: Order cancelled - Patient discharged Performed By: #### L 100.0100, L500.2500 ####[facility] [address] [place], [address] Calcium Normal 7.6-11.0 [facility] Comment on above: Result Comment: Canc elled via OM: Order cancelled - Patient discharged Performed By: #### L 100.0100, L500.2500 ####[facility] [address] [place], [address] CL Normal 98-108 [facility] Comment on above: Result Comment: Canc elled via OM: Order cancelled - Patient discharged Performed By: #### L 100.0100, L500.2500 ####[facility] [address] [place], [address] CO2 Normal 21.0-32.0 [facility] Comment on above: Result Comment: Canc elled via OM: Order cancelled - Patient discharged Performed By: #### L 100.0100, L500.2500 ####[facility] [address] [place], [address] CREAT,SERUM Normal 0.70-1.20 [facility] Comment on above: Result Comment: Canc elled via OM: Order cancelled - Patient discharged Performed By: #### L 100.0100, L500.2500 ####[facility] [address] [place], [address] eGFR Normal >60 [facility] Comment on above: Result Comment: Canc elled via OM: Order cancelled - Patient discharged Performed By: #### L 100.0100, L500.2500 ####[facility] [address] [place], [address] GAP Normal 5-15 [facility] Comment on above: Result Comment: Canc elled via OM: Order cancelled - Patient discharged Performed By: #### L 100.0100, L500.2500 ####[facility] [address] [place], [address] GLU Normal 70-99 [facility] Comment on above: Result Comment: Canc elled via OM: Order cancelled - Patient discharged Performed By: #### L 100.0100, L500.2500 ####[facility] [address] [place], [address] Potassium Normal 3.3-5.1 [facility] Comment on above: Result Comment: Canc elled via OM: Order cancelled - Patient discharged Performed By: #### L 100.0100, L500.2500 ####[facility] [address] [place], [address] Basic Metabolic Profile (BMP) Normal 133-145 [facility] Comment on above: Result Comment: Canc elled via OM: Order cancelled - Patient discharged Performed By: #### L 100.0100, L500.2500 ####[facility] [address] [place], [address] CBC W/Diff, Automatedon 06-0 -2024 Absolute Neut Normal 2.0-7.7 [facility] Comment on above: Result Comment: Canc elled via OM: Order cancelled - Patient discharged Performed By: #### L 100.0100, L500.2500 ####[facility] [address] [place], [address] HCT Normal 40-54 [facility] Comment on above: Result Comment: Canc elled via OM: Order cancelled - Patient discharged Performed By: #### L 100.0100, L500.2500 ####[facility] [address] [place], [address] HGB Normal 13.0-16.5 [facility] Comment on above: Result Comment: Canc elled via OM: Order cancelled - Patient discharged Performed By: #### L 100.0100, L500.2500 ####[facility] [address] [place], [address] MCH Normal 27.0-32.0 [facility] Comment on above: Result Comment: Canc elled via OM: Order cancelled - Patient discharged Performed By: #### L 100.0100, L500.2500 ####[facility] [address] [place], [address] MCHC Normal 32-36 [facility] Comment on above: Result Comment: Canc elled via OM: Order cancelled - Patient discharged Performed By: #### L 100.0100, L500.2500 ####[facility] [address] [place], [address] MCV Normal 80-94 [facility] Comment on above: Result Comment: Canc elled via OM: Order cancelled - Patient discharged Performed By: #### L 100.0100, L500.2500 ####[facility] [address] [place], [address] NEUT% Normal 47-70 [facility] Comment on above: Result Comment: Canc elled via OM: Order cancelled - Patient discharged Performed By: #### L 100.0100, L500.2500 ####[facility] [address] [place], [address] PLT Normal 150-450 [facility] Comment on above: Result Comment: Canc elled via OM: Order cancelled - Patient discharged Performed By: #### L 100.0100, L500.2500 ####[facility] [address] [place], [address] RBC Normal 4.6-6.2 [facility] Comment on above: Result Comment: Canc elled via OM: Order cancelled - Patient discharged Performed By: #### L 100.0100, L500.2500 ####[facility] [address] [place], [address] RDW CV Normal 11.6-14.6 [facility] Comment on above: Result Comment: Canc elled via OM: Order cancelled - Patient discharged Performed By: #### L 100.0100, L500.2500 ####[facility] [address] [place], [address] RDW SD Normal 35.1-43.9 [facility] Comment on above: Result Comment: Canc elled via OM: Order cancelled - Patient discharged Performed By: #### L 100.0100, L500.2500 ####[facility] [address] [place], [address] WBC Normal 4.4-11.0 [facility] Comment on above: Result Comment: Canc elled via OM: Order cancelled - Patient discharged Performed By: #### L 100.0100, L500.2500 ####[facility] [address] [place], [address] Basic Metabolic Profile (BMP )on 07-14-2024 BUN Normal 4-19 [facility] Comment on above: Order Comment: PT RE FUSED CHARGE NURSE GEETHA NOTIFIED Result Comment: CHARLEY ENT DISCHARGED Performed By: #### L 500.2500, L100.0100 ####[facility] [address] [place], [address] BUN/CRE Normal 10-20 [facility] Comment on above: Order Comment: PT RE FUSED CHARGE NURSE GEETHA NOTIFIED Result Comment: CHARLEY ENT DISCHARGED Performed By: #### L 500.2500, L100.0100 ####[facility] [address] [place], [address] Calcium Normal 7.6-11.0 [facility] Comment on above: Order Comment: PT RE FUSED CHARGE NURSE GEETHA NOTIFIED Result Comment: CHARLEY ENT DISCHARGED Performed By: #### L 500.2500, L100.0100 ####[facility] [address] [place], [address] CL Normal 98-108 [facility] Comment on above: Order Comment: PT RE FUSED CHARGE NURSE GEETHA NOTIFIED Result Comment: CHARLEY ENT DISCHARGED Performed By: #### L 500.2500, L100.0100 ####[facility] [address] [place], [address] CO2 Normal 21.0-32.0 [facility] Comment on above: Order Comment: PT RE FUSED CHARGE NURSE GEETHA NOTIFIED Result Comment: CHARLEY ENT DISCHARGED Performed By: #### L 500.2500, L100.0100 ####[facility] [address] [place], [address] CREAT,SERUM Normal 0.70-1.20 [facility] Comment on above: Order Comment: PT RE FUSED CHARGE NURSE GEETHA NOTIFIED Result Comment: CHARLEY ENT DISCHARGED Performed By: #### L 500.2500, L100.0100 ####[facility] [address] [place], [address] eGFR Normal >60 [facility] Comment on above: Order Comment: PT RE FUSED CHARGE NURSE GEETHA NOTIFIED Result Comment: CHARLEY ENT DISCHARGED Performed By: #### L 500.2500, L100.0100 ####[facility] [address] [place], [address] GAP Normal 5-15 [facility] Comment on above: Order Comment: PT RE FUSED CHARGE NURSE GEETHA NOTIFIED Result Comment: CHARLEY ENT DISCHARGED Performed By: #### L 500.2500, L100.0100 ####[facility] [address] [place], [address] GLU Normal 70-99 [facility] Comment on above: Order Comment: PT RE FUSED CHARGE NURSE GEETHA NOTIFIED Result Comment: CHARLEY ENT DISCHARGED Performed By: #### L 500.2500, L100.0100 ####[facility] [address] [place], [address] Potassium Normal 3.3-5.1 [facility] Comment on above: Order Comment: PT RE FUSED CHARGE NURSE GEETHA NOTIFIED Result Comment: CHARLEY ENT DISCHARGED Performed By: #### L 500.2500, L100.0100 ####[facility] [address] [place], [address] Basic Metabolic Profile (BMP) Normal 133-145 [facility] Comment on above: Order Comment: PT RE FUSED CHARGE NURSE GEETHA NOTIFIED Result Comment: CHARLEY ENT DISCHARGED Performed By: #### L 500.2500, L100.0100 ####[facility] [address] [place], [address] Bedside Glucoseon 07-14-2024 FINGERSTICK GLU 235 mg/dL High 74-106 [facility] Comment on above: Result Comment: DAYANARA MORENO OF PATIENT CARE PER NURSING PROTOCOL Performed By: #### L 501.080 ####[facility] [address] [place], [address] FINGERSTICK GLU 253 mg/dL High 74-106 [facility] Comment on above: Result Comment: DAYANARA GEMENT OF PATIENT CARE PER NURSING PROTOCOL Performed By: #### L 501.080 ####[facility] [address] [place], [address] FINGERSTICK GLU 205 mg/dL High 74-106 [facility] Comment on above: Result Comment: DAYANARA GEMENT OF PATIENT CARE PER NURSING PROTOCOL Performed By: #### L 501.080 ####[facility] [address] [place], [address] CBC W/Diff, Automatedon 06-0 -2024 Absolute Neut Normal 2.0-7.7 [facility] Comment on above: Order Comment: PT RE FUSED CHARGE NURSE GEETHA NOTIFIED Result Comment: CHARLEY ENT DISCHARGED Performed By: #### L 500.2500, L100.0100 ####[facility] [address] [place], [address] HCT Normal 40-54 [facility] Comment on above: Order Comment: PT RE FUSED CHARGE NURSE GEETHA NOTIFIED Result Comment: CHARLEY ENT DISCHARGED Performed By: #### L 500.2500, L100.0100 ####[facility] [address] [place], [address] HGB Normal 13.0-16.5 [facility] Comment on above: Order Comment: PT RE FUSED CHARGE NURSE GEETHA NOTIFIED Result Comment: CHARLEY ENT DISCHARGED Performed By: #### L 500.2500, L100.0100 ####[facility] [address] [place], [address] MCH Normal 27.0-32.0 [facility] Comment on above: Order Comment: PT RE FUSED CHARGE NURSE GEETHA NOTIFIED Result Comment: CHARLEY ENT DISCHARGED Performed By: #### L 500.2500, L100.0100 ####[facility] [address] [place], [address] MCHC Normal 32-36 [facility] Comment on above: Order Comment: PT RE FUSED CHARGE NURSE GEETHA NOTIFIED Result Comment: CHARLEY ENT DISCHARGED Performed By: #### L 500.2500, L100.0100 ####[facility] [address] [place], [address] MCV Normal 80-94 [facility] Comment on above: Order Comment: PT RE FUSED CHARGE NURSE GEETHA NOTIFIED Result Comment: CHARLEY ENT DISCHARGED Performed By: #### L 500.2500, L100.0100 ####[facility] [address] [place], [address] NEUT% Normal 47-70 [facility] Comment on above: Order Comment: PT RE FUSED CHARGE NURSE GEETHA NOTIFIED Result Comment: CHARLEY ENT DISCHARGED Performed By: #### L 500.2500, L100.0100 ####[facility] [address] [place], [address] PLT Normal 150-450 [facility] Comment on above: Order Comment: PT RE FUSED CHARGE NURSE GEETHA NOTIFIED Result Comment: CHARLEY ENT DISCHARGED Performed By: #### L 500.2500, L100.0100 ####[facility] [address] [place], [address] RBC Normal 4.6-6.2 [facility] Comment on above: Order Comment: PT RE FUSED CHARGE NURSE GEETHA NOTIFIED Result Comment: CHARLEY ENT DISCHARGED Performed By: #### L 500.2500, L100.0100 ####[facility] [address] [place], [address] RDW CV Normal 11.6-14.6 [facility] Comment on above: Order Comment: PT RE FUSED CHARGE NURSE GEETHA NOTIFIED Result Comment: CHARLEY ENT DISCHARGED Performed By: #### L 500.2500, L100.0100 ####[facility] [address] [place], [address] RDW SD Normal 35.1-43.9 [facility] Comment on above: Order Comment: PT RE FUSED CHARGE NURSE GEETHA NOTIFIED Result Comment: CHARLEY ENT DISCHARGED Performed By: #### L 500.2500, L100.0100 ####[facility] [address] [place], [address] WBC Normal 4.4-11.0 [facility] Comment on above: Order Comment: PT RE FUSED CHARGE NURSE GEETHA NOTIFIED Result Comment: CHARLEY ENT DISCHARGED Performed By: #### L 500.2500, L100.0100 ####[facility] [address] [place], [address] Gl[facility] deOrdered By: Conrado Morel on 07-14-2024 Glucose [Mass/Vol] 235 mg/dL High 74-106 [facility] Absolute lymphocyte countOrd ered By: Conrado Morel on 07-13-2024 Lymphocytes Auto (Unsp spec) [#/Vol] 1.06 10*3/uL 0.83-4.51 [facility] Anion gap in Serum or Plasma Ordered By: Conrado Morel on 07-13-2024 Anion gap [Moles/Vol] 11 mmol/L 5-15 [facility] Automated lymphocyte count a s percentage of total leukocytesOrdered By: Conrado Morel on 07-13-2024 Lymphocytes/100 WBC Auto (Unsp spec) 16.6 % Low 19-41 [facility] BUN/creatinine ratioOrdered By: Conrado Morel on 07-13-2024 Urea nitrogen/Creatinine [Mass ratio] 6.7 mg/mg Low 10-20 [facility] Basic Metabolic Profile (BMP )on 07-13-2024 BUN/CRE 6.7 RATIO Low 10-20 [facility] Comment on above: Performed By: #### L 501.2300, L501.5200, L100.0100, L500.2500 ####[facility] [address] [place], [address] Calcium [Mass/Vol] 8.3 mg/dL Normal 7.6-11.0 [facility] Comment on above: Performed By: #### L 501.2300, L501.5200, L100.0100, L500.2500 ####[facility] [address] [place], [address] Chloride [Moles/Vol] 107 mmol/L Normal 98-108 [facility] Comment on above: Performed By: #### L 501.2300, L501.5200, L100.0100, L500.2500 ####[facility] [address] [place], [address] CO2 [Moles/Vol] 21.2 mmol/L Normal 21.0-32.0 [facility] Comment on above: Performed By: #### L 501.2300, L501.5200, L100.0100, L500.2500 ####[facility] [address] [place], [address] Creatinine [Mass/Vol] 1.19 mg/dL Normal 0.70-1.20 [facility] Comment on above: Performed By: #### L 501.2300, L501.5200, L100.0100, L500.2500 ####[facility] [address] [place], [address] ECRCL 63.90 ml/min Normal 50-250 [facility] Comment on above: Performed By: #### L 501.2300, L501.5200, L100.0100, L500.2500 ####[facility] [address] [place], [address] GAP 11 Normal 5-15 [facility] Comment on above: Performed By: #### L 501.2300, L501.5200, L100.0100, L500.2500 ####[facility] [address] [place], [address] GFR/1.73 sq M.predicted among non-blacks MDRD (S/P/Bld) [Vol rate/Area] 69 mL/min/{1.73_m2} Normal >60 [facility] Comment on above: Result Comment: mL/m in/1.73m2 CKD-EPI Creatinine Equation (2020) Performed By: #### L 501.2300, L501.5200, L100.0100, L500.2500 ####[facility] [address] [place], [address] Glucose [Mass/Vol] 96 mg/dL Normal 70-99 [facility] Comment on above: Performed By: #### L 501.2300, L501.5200, L100.0100, L500.2500 ####[facility] [address] [place], [address] Potassium [Moles/Vol] 4.4 mmol/L Normal 3.3-5.1 [facility] Comment on above: Performed By: #### L 501.2300, L501.5200, L100.0100, L500.2500 ####[facility] [address] [place], [address] Sodium [Moles/Vol] 139 mmol/L Normal 133-145 [facility] Comment on above: Performed By: #### L 501.2300, L501.5200, L100.0100, L500.2500 ####[facility] [address] [place], [address] Urea nitrogen [Mass/Vol] 8 mg/dL Normal 4-19 [facility] Comment on above: Performed By: #### L 501.2300, L501.5200, L100.0100, L500.2500 ####[facility] [address] [place], [address] Basophil percentageOrdered B y: Conrado Morel on 07-13-2024 Basophils/100 WBC (Bld) 0.9 % 0-1 [facility] Bedside Glucoseon 07-13-2024 FINGERSTICK GLU 190 mg/dL High 74-106 [facility] Comment on above: Result Comment: DAYANARA GEMENT OF PATIENT CARE PER NURSING PROTOCOL Performed By: #### L 501.080 ####[facility] [address] [place], [address] FINGERSTICK GLU 270 mg/dL High 74-106 [facility] Comment on above: Result Comment: DAYANARA GEMENT OF PATIENT CARE PER NURSING PROTOCOL Performed By: #### L 501.080 ####[facility] [address] [place], [address] FINGERSTICK GLU 101 mg/dL Normal 74-106 [facility] Comment on above: Result Comment: DAYANARA GEMENT OF PATIENT CARE PER NURSING PROTOCOL Performed By: #### L 501.080 ####[facility] [address] [place], [address] CBC W/Diff, Automatedon 06-0 -2024 Absolute Lymph 1.06 X10 3/uL Normal 0.83-4.51 [facility] Comment on above: Performed By: #### L 501.2300, L501.5200, L100.0100, L500.2500 ####[facility] [address] [place], [address] Absolute Neut 4.8 X10 3/uL Normal 2.0-7.7 [facility] Comment on above: Performed By: #### L 501.2300, L501.5200, L100.0100, L500.2500 ####[facility] [address] [place], [address] Basophils/100 WBC (Bld) 0.9 % Normal 0-1 [facility] Comment on above: Performed By: #### L 501.2300, L501.5200, L100.0100, L500.2500 ####[facility] [address] [place], [address] Eosinophils/100 WBC (Bld) 1.4 % Normal 0-5 [facility] Comment on above: Performed By: #### L 501.2300, L501.5200, L100.0100, L500.2500 ####[facility] [address] [place], [address] Erythrocyte distribution width (RBC) [Ratio] 15.6 % High 11.6-14.6 [facility] Comment on above: Performed By: #### L 501.2300, L501.5200, L100.0100, L500.2500 ####[facility] [address] [place], [address] Hematocrit (Bld) [Volume fraction] 26.5 % Low 40-54 [facility] Comment on above: Performed By: #### L 501.2300, L501.5200, L100.0100, L500.2500 ####[facility] [address] [place], [address] Hemoglobin (Bld) [Mass/Vol] 8.5 g/dL Low 13.0-16.5 [facility] Comment on above: Performed By: #### L 501.2300, L501.5200, L100.0100, L500.2500 ####[facility] [address] [place], [address] IG% 0.300 Normal 0.0-0.9 [facility] Comment on above: Result Comment: IG% - Immature Granulocytes (promyelocytes, myelocytes andmetamyelocytes) > 1% indicates that a LEFT SHIFT is Present. Performed By: #### L 501.2300, L501.5200, L100.0100, L500.2500 ####[facility] [address] [place], [address] Lymphocytes/100 WBC (Bld) 16.6 % Low 19-41 [facility] Comment on above: Performed By: #### L 501.2300, L501.5200, L100.0100, L500.2500 ####[facility] [address] [place], [address] MCH (RBC) [Entitic mass] 35.9 pg High 27.0-32.0 [facility] Comment on above: Performed By: #### L 501.2300, L501.5200, L100.0100, L500.2500 ####[facility] [address] [place], [address] MCHC (RBC) [Mass/Vol] 32.1 g/dL Normal 32-36 [facility] Comment on above: Performed By: #### L 501.2300, L501.5200, L100.0100, L500.2500 ####[facility] [address] [place], [address] MCV (RBC) [Entitic vol] 111.8 fL High 80-94 [facility] Comment on above: Performed By: #### L 501.2300, L501.5200, L100.0100, L500.2500 ####[facility] [address] [place], [address] Monocytes/100 WBC (Bld) 6.6 % Normal 0-10 [facility] Comment on above: Performed By: #### L 501.2300, L501.5200, L100.0100, L500.2500 ####[facility] [address] [place], [address] Neutrophils/100 WBC (Bld) 74.2 % High 47-70 [facility] Comment on above: Performed By: #### L 501.2300, L501.5200, L100.0100, L500.2500 ####[facility] [address] [place], [address] Nucleated RBC (Bld) [#/Vol] 0 10*3/uL Normal 0-5 [facility] Comment on above: Performed By: #### L 501.2300, L501.5200, L100.0100, L500.2500 ####[facility] [address] [place], [address] Platelet mean volume (Bld) [Entitic vol] 11.0 fL Normal 6.2-12.0 [facility] Comment on above: Performed By: #### L 501.2300, L501.5200, L100.0100, L500.2500 ####[facility] [address] [place], [address] Platelets (Bld) [#/Vol] 165 10*3/uL Normal 150-450 [facility] Comment on above: Performed By: #### L 501.2300, L501.5200, L100.0100, L500.2500 ####[facility] [address] [place], [address] RBC (Bld) [#/Vol] 2.37 10*6/uL Low 4.6-6.[address] [facility] Comment on above: Performed By: #### L 501.2300, L501.5200, L100.0100, L500.2500 ####[facility] [address] [place], [address] RDW SD 63.7 fl High 35.1-43.9 [facility] Comment on above: Performed By: #### L 501.2300, L501.5200, L100.0100, L500.2500 ####[facility] [address] [place], [address] WBC (Bld) [#/Vol] 6.4 10*3/uL Normal 4.4-11.0 [facility] Comment on above: Performed By: #### L 501.2300, L501.5200, L100.0100, L500.2500 ####[facility] [address] [place], [address] Carbon dioxide, total [Moles /volume] in Central venous bloodOrdered By: Conrado Morel on 07-13-2024 CO2 [Moles/Vol] 21.2 mmol/L 21.0-32.0 [facility] Chloride assayOrdered By: Lauri Morel on 07-13-2024 Chloride [Moles/Vol] 107 mmol/L 98-108 [facility] Eosinophil percentageOrdered By: Conrado Morel on 07-13-2024 Eosinophils/100 WBC (Bld) 1.4 % 0-5 [facility] Erythrocyte distribution wid th ratioOrdered By: Conrado Morel on 07-13-2024 Erythrocyte distribution width (RBC) [Ratio] 15.6 % High 11.6-14.6 [facility] Erythrocyte distribution wid th standard deviationOrdered By: Conrado Morel on 07-13-2024 Erythrocyte distribution width (RBC) [Ratio] 63.7 fl High 35.1-43.9 [facility] Glomerular filtration rate ( GFR) estimation/1.73 sq m using serum, plasma, or whole bOrdered By: Conrado Morel on 07-13-2024 GFR/1.73 sq M.predicted among non-blacks MDRD (S/P/Bld) [Vol rate/Area] 69 mL/min/{1.73_m2} >60 [facility] Hematocrit Auto (Bld) [Volum e fraction]Ordered By: Conrado Morel on 07-13-2024 Hematocrit (Bld) [Volume fraction] 26.5 % Low 40-54 [facility] Hemoglobin measurementOrdere d By: Conrado Morel on 07-13-2024 Hemoglobin (Bld) [Mass/Vol] 8.5 g/dL Low 13.0-16.5 [facility] Immature granulocytes/100 WB C Auto (Bld)Ordered By: Conrado Morel on 07-13-2024 Immature granulocytes/100 WBC (Bld) 0.300 % 0.0-0.9 [facility] MCV (mean corpuscular volume ) determinationOrdered By: Conrado Morel on 07-13-2024 MCV (RBC) [Entitic vol] 111.8 fL High 80-94 [facility] Magnesiumon 07-13-2024 Magnesium [Mass/Vol] 2.0 mg/dL Normal 1.5-2.2 [facility] Comment on above: Performed By: #### L 501.2300, L501.5200, L100.0100, L500.2500 ####[facility] [address] [place], [place], [address] Magnesium measurement (mass/ volume)Ordered By: Conrado Morel on 07-13-2024 Magnesium (Unsp spec) [Mass/Vol] 2.0 mg/dL 1.5-2.2 [facility] Mean corpuscular hemoglobin (MCH) determinationOrdered By: Conrado Morel on 07-13-2024 MCH (RBC) [Entitic mass] 35.9 pg High 27.0-32.0 [facility] Monocyte percentageOrdered B y: Conrado Morel on 07-13-2024 Monocytes/100 WBC (Bld) 6.6 % 0-10 [facility] Neutrophil percentageOrdered By: Conrado Morel on 07-13-2024 Neutrophils/100 WBC (Bld) 74.2 % High 47-70 [facility] Phosphoruson 07-13-2024 Phosphate [Mass/Vol] 3.1 mg/dL Normal 2.7-4.5 [facility] Comment on above: Performed By: #### L 501.2300, L501.5200, L100.0100, L500.2500 ####[facility] [address] [place], [place], [address] Platelet countOrdered By: Lauri Morel on 07-13-2024 Platelets (Bld) [#/Vol] 165 10*3/uL 150-450 [facility] Potassium measurement (mass/ volume)Ordered By: Conrado Morel on 07-13-2024 Potassium (Unsp spec) [Mass/Vol] 4.4 mmol/L 3.3-5.1 [facility] RBC Auto (Bld) [#/Vol]Ordere d By: Conrado Morel on 07-13-2024 RBC (Bld) [#/Vol] 2.37 10*6/uL Low 4.6-6.[address] [facility] Serum creatinine measurement (mass/volume)Ordered By: Conrado Morel on 07-13-2024 Creatinine [Mass/Vol] 1.19 mg/dL 0.70-1.20 [facility] Serum glucose measurement (m ass/volume)Ordered By: Conrado Morel on 07-13-2024 Glucose [Mass/Vol] 96 mg/dL 70-99 [facility] Serum or plasma calcium luciana urement (mass/volume)Ordered By: Conrado Morel on 07-13-2024 Calcium [Mass/Vol] 8.3 mg/dL 7.6-11.0 [facility] Serum or plasma urea nitroge n measurement (mass/volume)Ordered By: Conrado Morel on 07-13-2024 Urea nitrogen [Mass/Vol] 8 mg/dL 4-19 [facility] Sodium levelOrdered By: Lawrence Morel on 07-13-2024 Sodium [Moles/Vol] 139 mmol/L 133-145 [facility] White blood cell (WBC) count Ordered By: Conrado Morel on 07-13-2024 WBC (Bld) [#/Vol] 6.4 10*3/uL 4.4-11.0 [facility] [employer] Decub and/or Erecton 07-12-2024 Abd Inc Decub and/or Erect Normal [facility] Bedside Glucoseon 07-12-2024 FINGERSTICK GLU 98 mg/dL Normal 74-106 [facility] Comment on above: Result Comment: DAYANARA GEMENT OF PATIENT CARE PER NURSING PROTOCOL Performed By: #### L 501.080 ####[facility] [address] [place], [address] FINGERSTICK GLU 99 mg/dL Normal 74-106 [facility] Comment on above: Result Comment: DAYANARA GEMENT OF PATIENT CARE PER NURSING PROTOCOL Performed By: #### L 501.080 ####[facility] [address] [place], [address] FINGERSTICK GLU 236 mg/dL High 74-106 [facility] Comment on above: Result Comment: DAYANARA GEMENT OF PATIENT CARE PER NURSING PROTOCOL Performed By: #### L 501.080 ####[facility] [address] [place], [address] FINGERSTICK GLU 94 mg/dL Normal 74-106 [facility] Comment on above: Result Comment: DAYANARA GEMENT OF PATIENT CARE PER NURSING PROTOCOL Performed By: #### L 501.080 ####[facility] [address] [place], [address] Bilirubin, totalOrdered By: Melonie De La Rosa on 07-12-2024 Bilirubin [Mass/Vol] 0.36 mg/dL 0.00-1.30 [facility] Body Fluid Cell Count+Diffon 07-12-2024 PATH COMM/BF Reviewed Normal [facility] Comment on above: Result Comment: NO M ALIGNANT CELLS OBSERVED.Fabiola Landaverde MD 07/12/2024 AMENDED REPORT 07/12/24 1412 PATH COMM/BF previously reported as: May follow Performed By: #### L 200.0200 ####[facility] [address] [place], [address] CBC W/Diff, Automatedon Anisocytosis Ql (Bld) 1+ Normal [facility] Comment on above: Performed By: #### L 100.0100, L501.2300, L501.5200, L500.4050 ####[facility] [address] [place], [address] Comprehensive Metabolic Prof ilon 07-12-2024 Albumin [Mass/Vol] 2.5 g/dL Low 3.4-4.8 [facility] Comment on above: Performed By: #### L 100.0100, L501.2300, L501.5200, L500.4050 ####[facility] [address] [place], [address] Albumin/Globulin [Mass ratio] 0.9 {ratio} Normal 0.9-2.4 [facility] Comment on above: Performed By: #### L 100.0100, L501.2300, L501.5200, L500.4050 ####[facility] [address] [place], [address] ALK PHOS 90 U/L Normal 40-129 [facility] Comment on above: Performed By: #### L 100.0100, L501.2300, L501.5200, L500.4050 ####[facility] [address] [place], [address] ALT [Catalytic activity/Vol] 20 U/L Normal <=46 [facility] Comment on above: Performed By: #### L 100.0100, L501.2300, L501.5200, L500.4050 ####[facility] [address] [place], [address] AST [Catalytic activity/Vol] 51 U/L High <=37 [facility] Comment on above: Performed By: #### L 100.0100, L501.2300, L501.5200, L500.4050 ####[facility] [address] [place], [address] Bilirubin [Mass/Vol] 0.36 mg/dL Normal 0.00-1.30 [facility] Comment on above: Performed By: #### L 100.0100, L501.2300, L501.5200, L500.4050 ####[facility] [address] [place], [address] BUN/CRE 8.3 RATIO Low 10-20 [facility] Comment on above: Performed By: #### L 100.0100, L501.2300, L501.5200, L500.4050 ####[facility] [address] [place], [address] Calcium [Mass/Vol] 8.1 mg/dL Normal 7.6-11.0 [facility] Comment on above: Performed By: #### L 100.0100, L501.2300, L501.5200, L500.4050 ####[facility] [address] [place], [address] Chloride [Moles/Vol] 108 mmol/L Normal 98-108 [facility] Comment on above: Performed By: #### L 100.0100, L501.2300, L501.5200, L500.4050 ####[facility] [address] [place], [address] CO2 [Moles/Vol] 22.8 mmol/L Normal 21.0-32.0 [facility] Comment on above: Performed By: #### L 100.0100, L501.2300, L501.5200, L500.4050 ####[facility] [address] [place], [address] Creatinine [Mass/Vol] 1.12 mg/dL Normal 0.70-1.20 [facility] Comment on above: Performed By: #### L 100.0100, L501.2300, L501.5200, L500.4050 ####[facility] [address] [place], [address] ECRCL 63.78 ml/min Normal 50-250 [facility] Comment on above: Performed By: #### L 100.0100, L501.2300, L501.5200, L500.4050 ####[facility] [address] [place], [address] GAP 7 Normal 5-15 [facility] Comment on above: Performed By: #### L 100.0100, L501.2300, L501.5200, L500.4050 ####[facility] [address] [place], [address] GFR/1.73 sq M.predicted among non-blacks MDRD (S/P/Bld) [Vol rate/Area] 75 mL/min/{1.73_m2} Normal >60 [facility] Comment on above: Result Comment: mL/m in/1.73m2 CKD-EPI Creatinine Equation (2020) Performed By: #### L 100.0100, L501.2300, L501.5200, L500.4050 ####[facility] [address] [place], [address] Globulin (S) [Mass/Vol] 2.6 g/dL Normal 2.2-4.2 [facility] Comment on above: Performed By: #### L 100.0100, L501.2300, L501.5200, L500.4050 ####[facility] [address] [place], [address] Glucose [Mass/Vol] 93 mg/dL Normal 70-99 [facility] Comment on above: Performed By: #### L 100.0100, L501.2300, L501.5200, L500.4050 ####[facility] [address] [place], [address] Potassium [Moles/Vol] 4.2 mmol/L Normal 3.3-5.1 [facility] Comment on above: Performed By: #### L 100.0100, L501.2300, L501.5200, L500.4050 ####[facility] [address] [place], [address] Sodium [Moles/Vol] 138 mmol/L Normal 133-145 [facility] Comment on above: Performed By: #### L 100.0100, L501.2300, L501.5200, L500.4050 ####[facility] [address] [place], [address] T PROT 5.1 g/dL Low 5.9-8.4 [facility] Comment on above: Performed By: #### L 100.0100, L501.2300, L501.5200, L500.4050 ####[facility] [address] [place], [address] Urea nitrogen [Mass/Vol] 9 mg/dL Normal 4-19 [facility] Comment on above: Performed By: #### L 100.0100, L501.2300, L501.5200, L500.4050 ####[facility] [address] [place], [address] Consultation - Surgicalon Consultation - Surgical Normal [facility] Magnesiumon 07-12-2024 Magnesium [Mass/Vol] 2.0 mg/dL Normal 1.5-2.2 [facility] Comment on above: Performed By: #### L 100.0100, L501.2300, L501.5200, L500.4050 ####[facility] [address] [place], [address] No Panel InformationOrdered By: Melonie De La Rosa on 07-12-2024 1+ [facility] 51 U/L High <38 [facility] Phosphoruson 07-12-2024 Phosphate [Mass/Vol] 3.0 mg/dL Normal 2.7-4.5 [facility] Comment on above: Performed By: #### L 100.0100, L501.2300, L501.5200, L500.4050 ####[facility] [address] [place], [address] Serum globulin measurementOr dered By: Melonie De La Rosa on 07-12-2024 Globulin (S) [Mass/Vol] 2.6 g/dL 2.2-4.2 [facility] Serum or plasma alanine padilla otransferase (ALT) measurementOrdered By: Melonie De La Rosa on 07-12-2024 ALT [Catalytic activity/Vol] 20 U/L <47 [facility] Serum or plasma albumin luciana urement (mass/volume)Ordered By: Melonie De La Rosa on 07-12-2024 Albumin [Mass/Vol] 2.5 g/dL Low 3.4-4.8 [facility] Serum or plasma albumin/glob ulin mass ratioOrdered By: Melonie De La Rosa on 07-12-2024 Albumin/Globulin [Mass ratio] 0.9 {ratio} 0.9-2.4 [facility] Serum or plasma alkaline nolan sphatase measurementOrdered By: Melonie De La Rosa on 07-12-2024 ALP [Catalytic activity/Vol] 90 U/L 40-129 [facility] Small Bowel Series Onlyon Small Bowel Series Only Normal [facility] Total proteinOrdered By: Shira De La Rosa on 07-12-2024 Protein [Mass/Vol] 5.1 g/dL Low 5.9-8.4 [facility] Abdomen/Pelvis W IV Cont ONL Yon 07-11-2024 Abdomen/Pelvis W IV Cont ONLY Normal [facility] Absolute lymphocyte countOrd ered By: Perez Ribeiro on 07-11-2024 Lymphocytes Auto (Unsp spec) [#/Vol] 0.86 10*3/uL 0.83-4.51 [facility] Alcohol, Blood (Medical)-Ser umon 07-11-2024 SERUM ETOH < 10.1 Normal <=10.0 [facility] Comment on above: Result Comment: This test is for medical purposes only. The legaldefinition of intoxication varies according to local law. Performed By: #### L 500.2500, L500.3400, L505.5000, L100.0100, L501.9100, L501.2450 ####[facility] [address] [place], [place], [phone] Amphetamine detection with 1 000 ng/mL as cutoffOrdered By: Perez Ribeiro on 07-11-2024 Amphetamines Screen method >1000 ng/mL Ql (U) Negative <1000 ng/mL [facility] Amphetamines Screen method >1000 ng/mL Ql (U) Positive < 200 ng/mL [facility] Anion gap in Serum or Plasma Ordered By: Perez Ribeiro on 07-11-2024 Anion gap [Moles/Vol] 8 mmol/L 5-15 [facility] Automated lymphocyte count a s percentage of total leukocytesOrdered By: Perez Ribeiro on 07-11-2024 Lymphocytes/100 WBC Auto (Unsp spec) 15.4 % Low 19-41 [facility] BUN/creatinine ratioOrdered By: Perez Ribeiro on 07-11-2024 Urea nitrogen/Creatinine [Mass ratio] 8.9 mg/mg Low 10-20 [facility] Basic Metabolic Profile (BMP )on 07-11-2024 BUN/CRE 8.9 RATIO Low 10- [facility] Comment on above: Performed By: #### L 500.2500, L500.3400, L505.5000, L100.0100, L501.9100, L501.2450 ####[facility] [address] [place], [address] Calcium [Mass/Vol] 8.3 mg/dL Normal 7.6-11.0 [facility] Comment on above: Performed By: #### L 500.2500, L500.3400, L505.5000, L100.0100, L501.9100, L501.2450 ####[facility] [address] [place], [address] Chloride [Moles/Vol] 103 mmol/L Normal 98-108 [facility] Comment on above: Performed By: #### L 500.2500, L500.3400, L505.5000, L100.0100, L501.9100, L501.2450 ####[facility] [address] [place], [address] CO2 [Moles/Vol] 28.3 mmol/L Normal 21.0-32.0 [facility] Comment on above: Performed By: #### L 500.2500, L500.3400, L505.5000, L100.0100, L501.9100, L501.2450 ####[facility] [address] [place], [address] Creatinine [Mass/Vol] 1.15 mg/dL Normal 0.70-1.20 [facility] Comment on above: Performed By: #### L 500.2500, L500.3400, L505.5000, L100.0100, L501.9100, L501.2450 ####[facility] [address] [place], [address] ECRCL 62.80 ml/min Normal 50-250 [facility] Comment on above: Performed By: #### L 500.2500, L500.3400, L505.5000, L100.0100, L501.9100, L501.2450 ####[facility] [address] [place], [address] GAP 8 Normal 5-15 [facility] Comment on above: Performed By: #### L 500.2500, L500.3400, L505.5000, L100.0100, L501.9100, L501.2450 ####[facility] [address] [place], [address] GFR/1.73 sq M.predicted among non-blacks MDRD (S/P/Bld) [Vol rate/Area] 72 mL/min/{1.73_m2} Normal >60 [facility] Comment on above: Result Comment: mL/m in/1.73m2 CKD-EPI Creatinine Equation (2020) Performed By: #### L 500.2500, L500.3400, L505.5000, L100.0100, L501.9100, L501.2450 ####[facility] [address] [place], [address] Glucose [Mass/Vol] 137 mg/dL High 70-99 [facility] Comment on above: Performed By: #### L 500.2500, L500.3400, L505.5000, L100.0100, L501.9100, L501.2450 ####[facility] [address] [place], [address] Potassium [Moles/Vol] 4.6 mmol/L Normal 3.3-5.1 [facility] Comment on above: Performed By: #### L 500.2500, L500.3400, L505.5000, L100.0100, L501.9100, L501.2450 ####[facility] [address] [place], [address] Sodium [Moles/Vol] 140 mmol/L Normal 133-145 [facility] Comment on above: Performed By: #### L 500.2500, L500.3400, L505.5000, L100.0100, L501.9100, L501.2450 ####[facility] [address] [place], [address] Urea nitrogen [Mass/Vol] 10 mg/dL Normal 4-19 [facility] Comment on above: Performed By: #### L 500.2500, L500.3400, L505.5000, L100.0100, L501.9100, L501.2450 ####[facility] [address] [place], [address] Basophil percentageOrdered B y: Perez Ribeiro on 07-11-2024 Basophils/100 WBC (Bld) 1.1 % High 0-1 [facility] Bedside Glucoseon 07-11-2024 FINGERSTICK GLU 97 mg/dL Normal 74-106 [facility] Comment on above: Result Comment: DAYANARA GEMENT OF PATIENT CARE PER NURSING PROTOCOL Performed By: #### L 501.080 ####[facility] [address] [place], [address] FINGERSTICK GLU 149 mg/dL High 74-106 [facility] Comment on above: Result Comment: DAYANARA GEMENT OF PATIENT CARE PER NURSING PROTOCOL Performed By: #### L 501.080 ####[facility] [address] [place], [place], [id number] Bilirubin Test strip Ql (U)O rdered By: Perez Ribeiro on 07-11-2024 Bilirubin Ql (U) Negative Negative [facility] Bilirubin directOrdered By: Perez Ribeiro on 07-11-2024 Bilirubin.direct [Mass/Vol] 0.21 mg/dL 0.00-0.30 [facility] Bilirubin, totalOrdered By: Perez Ribeiro on 07-11-2024 Bilirubin [Mass/Vol] 0.34 mg/dL 0.00-1.30 [facility] Blood polychromasia detectio n by light microscopyOrdered By: Perez Ribeiro on 07-11-2024 Polychromasia LM Ql (Bld) RARE [facility] CBC W/Diff, Automatedon Anisocytosis Ql (Bld) 1+ Normal [facility] Comment on above: Performed By: #### L 500.2500, L500.3400, L505.5000, L100.0100, L501.9100, L501.2450 ####[facility] [address] [place], [place], [phone] PLT EST A Normal ADEQ [facility] Comment on above: Performed By: #### L 500.2500, L500.3400, L505.5000, L100.0100, L501.9100, L501.2450 ####[facility] [address] [place], [place], [phone] POLYCHROMASIA RARE Normal [facility] Comment on above: Performed By: #### L 500.2500, L500.3400, L505.5000, L100.0100, L501.9100, L501.2450 ####[facility] [address] [place], [place], [phone] Carbon dioxide, total [Moles /volume] in Central venous bloodOrdered By: Perez Ribeiro on 07-11-2024 CO2 [Moles/Vol] 28.3 mmol/L 21.0-32.0 [facility] Chloride assayOrdered By: Prosper Ribeiro on 07-11-2024 Chloride [Moles/Vol] 103 mmol/L 98-108 [facility] Summary on 07-11-2024 Emergency Department Summary Normal [facility] Eosinophil percentageOrdered By: Perez Ribeiro on 07-11-2024 Eosinophils/100 WBC (Bld) 0.4 % 0-5 [facility] Erythrocyte distribution wid th ratioOrdered By: Perez Ribeiro on 07-11-2024 Erythrocyte distribution width (RBC) [Ratio] 16.1 % High 11.6-14.6 [facility] Erythrocyte distribution wid th standard deviationOrdered By: Perez Ribeiro on 07-11-2024 Erythrocyte distribution width (RBC) [Ratio] 66.4 fl High 35.1-43.9 [facility] Glomerular filtration rate ( GFR) estimation/1.73 sq m using serum, plasma, or whole bOrdered By: Perez Ribeiro on 07-11-2024 GFR/1.73 sq M.predicted among non-blacks MDRD (S/P/Bld) [Vol rate/Area] 72 mL/min/{1.73_m2} >60 [facility] H AND P Exam - Hospitaliston 07-11-2024 H&P Exam - Hospitalist Normal [facility] Hematocrit Auto (Bld) [Volum e fraction]Ordered By: Perez Ribeiro on 07-11-2024 Hematocrit (Bld) [Volume fraction] 29.1 % Low 40-54 [facility] Hemoglobin measurementOrdere d By: Perez Ribeiro on 07-11-2024 Hemoglobin (Bld) [Mass/Vol] 9.3 g/dL Low 13.0-16.5 [facility] Immature granulocytes/100 WB C Auto (Bld)Ordered By: Perez Ribeiro on 07-11-2024 Immature granulocytes/100 WBC (Bld) 0.500 % 0.0-0.9 [facility] Ketones Test strip Ql (U)Ord ered By: Perez Ribeiro on 07-11-2024 Ketones Ql (U) Negative Negative [facility] Lipaseon 07-11-2024 Lipase [Catalytic activity/Vol] 6 U/L Low 13-75 [facility] Comment on above: Result Comment: Mary Anne zamorano note:LIPASE revised reference range effective 22.New Lipase methodology. Expected to produce lower valuesthan the previous assay method.NEW Reference Range: 13 - 75 U/L Performed By: #### L 500.2500, L500.3400, L505.5000, L100.0100, L501.9100, L501.2450 ####[facility] [address] [place], [address] Liver Profileon 07-11-2024 Albumin [Mass/Vol] 2.9 g/dL Low 3.4-4.8 [facility] Comment on above: Performed By: #### L 500.2500, L500.3400, L505.5000, L100.0100, L501.9100, L501.2450 ####[facility] [address] [place], [address] ALK PHOS 104 U/L Normal 40-129 [facility] Comment on above: Performed By: #### L 500.2500, L500.3400, L505.5000, L100.0100, L501.9100, L501.2450 ####[facility] [address] [place], [address] ALT [Catalytic activity/Vol] 23 U/L Normal <=46 [facility] Comment on above: Performed By: #### L 500.2500, L500.3400, L505.5000, L100.0100, L501.9100, L501.2450 ####[facility] [address] [place], [address] AST [Catalytic activity/Vol] 53 U/L High <=37 [facility] Comment on above: Performed By: #### L 500.2500, L500.3400, L505.5000, L100.0100, L501.9100, L501.2450 ####[facility] [address] [place], [address] Bilirubin [Mass/Vol] 0.34 mg/dL Normal 0.00-1.30 [facility] Comment on above: Performed By: #### L 500.2500, L500.3400, L505.5000, L100.0100, L501.9100, L501.2450 ####[facility] [address] [place], [address] Bilirubin.direct [Mass/Vol] 0.21 mg/dL Normal 0.00-0.30 [facility] Comment on above: Performed By: #### L 500.2500, L500.3400, L505.5000, L100.0100, L501.9100, L501.2450 ####[facility] [address] [place], [place], [phone] Globulin (S) [Mass/Vol] 2.8 g/dL Normal 2.2-4.2 [facility] Comment on above: Performed By: #### L 500.2500, L500.3400, L505.5000, L100.0100, L501.9100, L501.2450 ####[facility] [address] [place], [address] T PROT 5.7 g/dL Low 5.9-8.4 [facility] Comment on above: Performed By: #### L 500.2500, L500.3400, L505.5000, L100.0100, L501.9100, L501.2450 ####[facility] [address] [place], [address] MCV (mean corpuscular volume ) determinationOrdered By: Perez Ribeiro on 07-11-2024 MCV (RBC) [Entitic vol] 111.5 fL High 80-94 [facility] Mean corpuscular hemoglobin (MCH) determinationOrdered By: Perez Ribeiro on 07-11-2024 MCH (RBC) [Entitic mass] 35.6 pg High 27.0-32.0 [facility] Monocyte percentageOrdered B y: Perez Ribeiro on 07-11-2024 Monocytes/100 WBC (Bld) 7.7 % 0-10 [facility] Mucus LM Ql (Urine sed)Order ed By: Perez Ribeiro on 07-11-2024 Mucus Ql (Urine sed) 0 SEEN /hpf [facility] Neutrophil percentageOrdered By: Perez Ribeiro on 07-11-2024 Neutrophils/100 WBC (Bld) 74.9 % High 47-70 [facility] Nitrite Test strip Ql (U)Ord ered By: Perez Ribeiro on 07-11-2024 Nitrite Ql (U) Negative Negative [facility] No Panel InformationOrdered By: Perez Ribeiro on 07-11-2024 1+ [facility] 53 U/L High <38 [facility] Negative < 200 ng/mL [facility] Platelet countOrdered By: Prosper Ribeiro on 07-11-2024 Platelets (Bld) [#/Vol] 155 10*3/uL 150-450 [facility] Platelet estimateOrdered By: Perez Ribeiro on 07-11-2024 Platelets LM Ql (Bld) A ADEQ [facility] Potassium measurement (mass/ volume)Ordered By: Perez Ribeiro on 07-11-2024 Potassium (Unsp spec) [Mass/Vol] 4.6 mmol/L 3.3-5.1 [facility] Protein Test strip Ql (U)Ord ered By: Perez Ribeiro on 07-11-2024 Protein Ql (U) 15 mg/dl High Negative [facility] RBC Auto (Bld) [#/Vol]Ordere d By: Perez Ribeiro on 07-11-2024 RBC (Bld) [#/Vol] 2.61 10*6/uL Low 4.6-6.[address] [facility] Screening urine fentanyl mine surementOrdered By: Perez Ribeiro on 07-11-2024 fentaNYL Screen Ql (U) Negative [facility] Serum creatinine measurement (mass/volume)Ordered By: Perez Ribeiro on 07-11-2024 Creatinine [Mass/Vol] 1.15 mg/dL 0.70-1.20 [facility] Serum globulin measurementOr dered By: Perez Ribeiro on 07-11-2024 Globulin (S) [Mass/Vol] 2.8 g/dL 2.2-4.2 [facility] Serum glucose measurement (m ass/volume)Ordered By: Perez Ribeiro on 07-11-2024 Glucose [Mass/Vol] 137 mg/dL High 70-99 [facility] Serum or plasma alanine padilla otransferase (ALT) measurementOrdered By: Perez Ribeiro on 07-11-2024 ALT [Catalytic activity/Vol] 23 U/L <47 [facility] Serum or plasma albumin luciana urement (mass/volume)Ordered By: Perez Ribeiro on 07-11-2024 Albumin [Mass/Vol] 2.9 g/dL Low 3.4-4.8 [facility] Serum or plasma alkaline nolan sphatase measurementOrdered By: Perez Ribeiro on 07-11-2024 ALP [Catalytic activity/Vol] 104 U/L 40-129 [facility] Serum or plasma calcium luciana urement (mass/volume)Ordered By: Perez Ribeiro on 07-11-2024 Calcium [Mass/Vol] 8.3 mg/dL 7.6-11.0 [facility] Serum or plasma ethanol luciana urement (mass/volume)Ordered By: Perez Ribeiro on 07-11-2024 Ethanol [Mass/Vol] mg/dL <10.1 [facility] Serum or plasma urea nitroge n measurement (mass/volume)Ordered By: Perez Ribeiro on 07-11-2024 Urea nitrogen [Mass/Vol] 10 mg/dL 4-19 [facility] Sodium levelOrdered By: Beto Ribeiro on 07-11-2024 Sodium [Moles/Vol] 140 mmol/L 133-145 [facility] Squamous epithelial cells de tection in urine sediment by light microscopyOrdered By: Perez Ribeiro on 07-11-2024 Epithelial cells.squamous LM Ql (Urine sed) 0 SEEN /hpf 0-5 [facility] Total proteinOrdered By: Alonso Ribeiro on 07-11-2024 Protein [Mass/Vol] 5.7 g/dL Low 5.9-8.4 [facility] Urinalysis, Completeon 07-11 BACTERIA 0 SEEN Normal None Seen [facility] Comment on above: Order Comment: CLEAN CATCH Performed By: #### L 400.0001 ####[facility] [address] [place], [address] EPI,SQUAMOUS 0 SEEN Normal 0-5 [facility] Comment on above: Order Comment: CLEAN CATCH Performed By: #### L 400.0001 ####[facility] [address] [place], [address] Mucus Ql (Urine sed) 0 SEEN Normal [facility] Comment on above: Order Comment: CLEAN CATCH Performed By: #### L 400.0001 ####[facility] [address] [place], [address] RBC 0 SEEN Normal 0-5 [facility] Comment on above: Order Comment: CLEAN CATCH Performed By: #### L 400.0001 ####[facility] [address] [place], [address] WBC 0 SEEN Normal 0-5 [facility] Comment on above: Order Comment: CLEAN CATCH Performed By: #### L 400.0001 ####[facility] [address] [place], [address] Urine Drug Screen (VISTA)on 07-11-2024 AMPHETAMINES Negative Normal <1000 ng/mL [facility] Comment on above: Performed By: #### L 500.2500, L500.3400, L505.5000, L100.0100, L501.9100, L501.2450 ####[facility] [address] [place], [address] BARBITIURATES Positive Normal < 200 ng/mL [facility] Comment on above: Result Comment: If c onfirmation testing is needed, a separate order will berequired to send out testing to the reference laboratory. Performed By: #### L 500.2500, L500.3400, L505.5000, L100.0100, L501.9100, L501.2450 ####[facility] [address] [place], [address] BENZODIAZIPINE Negative Normal < 200 ng/mL [facility] Comment on above: Performed By: #### L 500.2500, L500.3400, L505.5000, L100.0100, L501.9100, L501.2450 ####[facility] [address] [place], [place], [phone] BUP Ur Drug Scr Negative Normal < 200 ng/mL [facility] Comment on above: Performed By: #### L 500.2500, L500.3400, L505.5000, L100.0100, L501.9100, L501.2450 ####[facility] [address] [place], [place], [phone] COCAINE Negative Normal < 300 ng/mL [facility] Comment on above: Performed By: #### L 500.2500, L500.3400, L505.5000, L100.0100, L501.9100, L501.2450 ####[facility] [address] [place], [place], [phone] Fentanyl Negative Normal [facility] Comment on above: Performed By: #### L 500.2500, L500.3400, L505.5000, L100.0100, L501.9100, L501.2450 ####[facility] [address] [place], [place], [phone] METHADONE Negative Normal < 300 ng/mL [facility] Comment on above: Performed By: #### L 500.2500, L500.3400, L505.5000, L100.0100, L501.9100, L501.2450 ####[facility] [address] [place], [place], [phone] OPIATES Negative Normal < 300 ng/mL [facility] Comment on above: Performed By: #### L 500.2500, L500.3400, L505.5000, L100.0100, L501.9100, L501.2450 ####[facility] [address] [place], [address] OXYCODONE Negative Normal < 100 ng/mL [facility] Comment on above: Performed By: #### L 500.2500, L500.3400, L505.5000, L100.0100, L501.9100, L501.2450 ####[facility] [address] [place], [address] PCP Negative Normal < 25 ng/mL [facility] Comment on above: Performed By: #### L 500.2500, L500.3400, L505.5000, L100.0100, L501.9100, L501.2450 ####[facility] [address] [place], [address] THC Negative Normal < 50 ng/mL [facility] Comment on above: Performed By: #### L 500.2500, L500.3400, L505.5000, L100.0100, L501.9100, L501.2450 ####[facility] [address] [place], [place], [phone] Urine clarityOrdered By: Alonso Ribeiro on 07-11-2024 Clarity (U) Clear Clear [facility] Urine color determinationOrd ered By: Perez Ribeiro on 07-11-2024 Color (U) Yellow Yellow [facility] Urine glucose detectionOrder ed By: Perez Ribeiro on 07-11-2024 Glucose Ql (U) Normal mg/dl Normal [facility] Urine leukocyte esterase det ection by dipstickOrdered By: Perez Ribeiro on 07-11-2024 Leukocyte esterase Test strip Ql (U) Negative Negative [facility] Urine pHOrdered By: Perez plaza on 07-11-2024 pH (U) 8.0 [pH] 5.0 - 8.0 [facility] Urine phencyclidine (PCP) de tectionOrdered By: Perez Ribeiro on 07-11-2024 Phencyclidine Ql (U) Negative < 25 ng/mL [facility] Urine sediment bacteria coun t by microscopy (number/high power field)Ordered By: Perez Ribeiro on 07-11-2024 Bacteria LM.HPF (Urine sed) [#/Area] 0 /[HPF] None Seen [facility] Urine specific gravity measu rementOrdered By: Perez Ribeiro on 07-11-2024 Specific gravity (U) [Rel density] 1.010 1.002-1.030 [facility] Urine urobilinogen measureme ntOrdered By: Perez Ribeiro on 07-11-2024 Urobilinogen Ql (U) Normal mg/dl Normal [facility] White blood cell (WBC) count Ordered By: Perez Ribeiro on 07-11-2024 WBC (Bld) [#/Vol] 5.6 10*3/uL 4.4-11.0 [facility] White blood cell countOrdere d By: Perez Ribeiro on 07-11-2024 White blood cell count 0 SEEN /hpf 0-5 [facility] Basic Metabolic Profile (BMP )on 07-10-2024 BUN Normal 4-19 [facility] Comment on above: Result Comment: Canc elled via OM: Order cancelled - Patient discharged Performed By: #### L 500.2500, L100.0500 ####[facility] [address] [place], [address] BUN/CRE Normal 10-20 [facility] Comment on above: Result Comment: Canc elled via OM: Order cancelled - Patient discharged Performed By: #### L 500.2500, L100.0500 ####[facility] [address] [place], [address] Calcium Normal 7.6-11.0 [facility] Comment on above: Result Comment: Canc elled via OM: Order cancelled - Patient discharged Performed By: #### L 500.2500, L100.0500 ####[facility] [address] [place], [address] CL Normal 98-108 [facility] Comment on above: Result Comment: Canc elled via OM: Order cancelled - Patient discharged Performed By: #### L 500.2500, L100.0500 ####[facility] [address] [place], [address] CO2 Normal 21.0-32.0 [facility] Comment on above: Result Comment: Canc elled via OM: Order cancelled - Patient discharged Performed By: #### L 500.2500, L100.0500 ####[facility] [address] [place], [address] CREAT,SERUM Normal 0.70-1.20 [facility] Comment on above: Result Comment: Canc elled via OM: Order cancelled - Patient discharged Performed By: #### L 500.2500, L100.0500 ####[facility] [address] [place], [address] eGFR Normal >60 [facility] Comment on above: Result Comment: Canc elled via OM: Order cancelled - Patient discharged Performed By: #### L 500.2500, L100.0500 ####[facility] [address] [place], [address] GAP Normal 5-15 [facility] Comment on above: Result Comment: Canc elled via OM: Order cancelled - Patient discharged Performed By: #### L 500.2500, L100.0500 ####[facility] [address] [place], [address] GLU Normal 70-99 [facility] Comment on above: Result Comment: Canc elled via OM: Order cancelled - Patient discharged Performed By: #### L 500.2500, L100.0500 ####[facility] [address] [place], [address] Potassium Normal 3.3-5.1 [facility] Comment on above: Result Comment: Canc elled via OM: Order cancelled - Patient discharged Performed By: #### L 500.2500, L100.0500 ####[facility] [address] [place], [address] Basic Metabolic Profile (BMP) Normal 133-145 [facility] Comment on above: Result Comment: Canc elled via OM: Order cancelled - Patient discharged Performed By: #### L 500.2500, L100.0500 ####[facility] [address] [place], [address] CBC-Complete Blood Cnt No Di ffon 07-10-2024 HCT Normal 40-54 [facility] Comment on above: Result Comment: Canc elled via OM: Order cancelled - Patient discharged Performed By: #### L 500.2500, L100.0500 ####[facility] [address] [place], [address] HGB Normal 13.0-16.5 [facility] Comment on above: Result Comment: Canc elled via OM: Order cancelled - Patient discharged Performed By: #### L 500.2500, L100.0500 ####[facility] [address] [place], [address] MCH Normal 27.0-32.0 [facility] Comment on above: Result Comment: Canc elled via OM: Order cancelled - Patient discharged Performed By: #### L 500.2500, L100.0500 ####[facility] [address] [place], [address] MCHC Normal 32-36 [facility] Comment on above: Result Comment: Canc elled via OM: Order cancelled - Patient discharged Performed By: #### L 500.2500, L100.0500 ####[facility] [address] [place], [address] MCV Normal 80-94 [facility] Comment on above: Result Comment: Canc elled via OM: Order cancelled - Patient discharged Performed By: #### L 500.2500, L100.0500 ####[facility] [address] [place], [address] PLT Normal 150-450 [facility] Comment on above: Result Comment: Canc elled via OM: Order cancelled - Patient discharged Performed By: #### L 500.2500, L100.0500 ####[facility] [address] [place], [address] RBC Normal 4.6-6.2 [facility] Comment on above: Result Comment: Canc elled via OM: Order cancelled - Patient discharged Performed By: #### L 500.2500, L100.0500 ####[facility] [address] [place], [address] RDW CV Normal 11.6-14.6 [facility] Comment on above: Result Comment: Canc elled via OM: Order cancelled - Patient discharged Performed By: #### L 500.2500, L100.0500 ####[facility] [address] [place], [address] RDW SD Normal 35.1-43.9 [facility] Comment on above: Result Comment: Canc elled via OM: Order cancelled - Patient discharged Performed By: #### L 500.2500, L100.0500 ####[facility] [address] [place], [address] WBC Normal 4.4-11.0 [facility] Comment on above: Result Comment: Canc elled via OM: Order cancelled - Patient discharged Performed By: #### L 500.2500, L100.0500 ####[facility] [address] [place], [address] Basic Metabolic Profile (BMP )on 07-09-2024 BUN Normal 4-19 [facility] Comment on above: Result Comment: Canc elled via OM: MD Ordered Performed By: #### L 500.2500 ####[facility] [address] [place], [address] Result Comment: Canc elled via OM: Order cancelled - Patient discharged Performed By: #### L 500.2500, L100.0500 ####[facility] [address] [place], [address] BUN/CRE Normal 10-20 [facility] Comment on above: Result Comment: Canc elled via OM: MD Ordered Performed By: #### L 500.2500 ####[facility] [address] [place], [address] Result Comment: Canc elled via OM: Order cancelled - Patient discharged Performed By: #### L 500.2500, L100.0500 ####[facility] [address] [place], [address] Calcium Normal 7.6-11.0 [facility] Comment on above: Result Comment: Canc elled via OM: MD Ordered Performed By: #### L 500.2500 ####[facility] [address] [place], [address] Result Comment: Canc elled via OM: Order cancelled - Patient discharged Performed By: #### L 500.2500, L100.0500 ####[facility] [address] [place], [address] CL Normal 98-108 [facility] Comment on above: Result Comment: Canc elled via OM: MD Ordered Performed By: #### L 500.2500 ####[facility] [address] [place], [address] Result Comment: Canc elled via OM: Order cancelled - Patient discharged Performed By: #### L 500.2500, L100.0500 ####[facility] [address] [place], [address] CO2 Normal 21.0-32.0 [facility] Comment on above: Result Comment: Canc elled via OM: MD Ordered Performed By: #### L 500.2500 ####[facility] [address] [place], [address] Result Comment: Canc elled via OM: Order cancelled - Patient discharged Performed By: #### L 500.2500, L100.0500 ####[facility] [address] [place], [address] CREAT,SERUM Normal 0.70-1.20 [facility] Comment on above: Result Comment: Canc elled via OM: MD Ordered Performed By: #### L 500.2500 ####[facility] [address] [place], [address] Result Comment: Canc elled via OM: Order cancelled - Patient discharged Performed By: #### L 500.2500, L100.0500 ####[facility] [address] [place], [address] eGFR Normal >60 [facility] Comment on above: Result Comment: Canc elled via OM: MD Ordered Performed By: #### L 500.2500 ####[facility] [address] [place], [address] Result Comment: Canc elled via OM: Order cancelled - Patient discharged Performed By: #### L 500.2500, L100.0500 ####[facility] [address] [place], [address] GAP Normal 5-15 [facility] Comment on above: Result Comment: Canc elled via OM: MD Ordered Performed By: #### L 500.2500 ####[facility] [address] [place], [address] Result Comment: Canc elled via OM: Order cancelled - Patient discharged Performed By: #### L 500.2500, L100.0500 ####[facility] [address] [place], [address] GLU Normal 70-99 [facility] Comment on above: Result Comment: Canc elled via OM: MD Ordered Performed By: #### L 500.2500 ####[facility] [address] [place], [address] Result Comment: Canc elled via OM: Order cancelled - Patient discharged Performed By: #### L 500.2500, L100.0500 ####[facility] [address] [place], [address] Potassium Normal 3.3-5.1 [facility] Comment on above: Result Comment: Canc elled via OM: MD Ordered Performed By: #### L 500.2500 ####[facility] [address] [place], [address] Result Comment: Canc elled via OM: Order cancelled - Patient discharged Performed By: #### L 500.2500, L100.0500 ####[facility] [address] [place], [address] Basic Metabolic Profile (BMP) Normal 133-145 [facility] Comment on above: Result Comment: Canc elled via OM: MD Ordered Performed By: #### L 500.2500 ####[facility] [address] [place], [address] Result Comment: Canc elled via OM: Order cancelled - Patient discharged Performed By: #### L 500.2500, L100.0500 ####[facility] [address] [place], [address] CBC-Complete Blood Cnt No Di ffon 07-09-2024 HCT Normal 40-54 [facility] Comment on above: Result Comment: Canc elled via OM: MD Ordered Performed By: #### L 100.0500 ####[facility] [address] [place], [address] HGB Normal 13.0-16.5 [facility] Comment on above: Result Comment: Canc elled via OM: MD Ordered Performed By: #### L 100.0500 ####[facility] [address] [place], [address] MCH Normal 27.0-32.0 [facility] Comment on above: Result Comment: Canc elled via OM: MD Ordered Performed By: #### L 100.0500 ####[facility] [address] [place], [address] MCHC Normal 32-36 [facility] Comment on above: Result Comment: Canc elled via OM: MD Ordered Performed By: #### L 100.0500 ####[facility] [address] [place], [address] MCV Normal 80-94 [facility] Comment on above: Result Comment: Canc elled via OM: MD Ordered Performed By: #### L 100.0500 ####[facility] [address] [place], [address] PLT Normal 150-450 [facility] Comment on above: Result Comment: Canc elled via OM: MD Ordered Performed By: #### L 100.0500 ####[facility] [address] [place], [address] RBC Normal 4.6-6.2 [facility] Comment on above: Result Comment: Canc elled via OM: MD Ordered Performed By: #### L 100.0500 ####[facility] [address] [place], [address] RDW CV Normal 11.6-14.6 [facility] Comment on above: Result Comment: Canc elled via OM: MD Ordered Performed By: #### L 100.0500 ####[facility] [address] [place], [address] RDW SD Normal 35.1-43.9 [facility] Comment on above: Result Comment: Canc elled via OM: MD Ordered Performed By: #### L 100.0500 ####[facility] [address] [place], [address] WBC Normal 4.4-11.0 [facility] Comment on above: Result Comment: Canc elled via OM: MD Ordered Performed By: #### L 100.0500 ####[facility] [address] [place], [address] HCT Normal 40-54 [facility] Comment on above: Result Comment: Canc elled via OM: Order cancelled - Patient discharged Performed By: #### L 500.2500, L100.0500 ####[facility] [address] [place], [address] HGB Normal 13.0-16.5 [facility] Comment on above: Result Comment: Canc elled via OM: Order cancelled - Patient discharged Performed By: #### L 500.2500, L100.0500 ####[facility] [address] [place], [address] MCH Normal 27.0-32.0 [facility] Comment on above: Result Comment: Canc elled via OM: Order cancelled - Patient discharged Performed By: #### L 500.2500, L100.0500 ####[facility] [address] [place], [address] MCHC Normal 32-36 [facility] Comment on above: Result Comment: Canc elled via OM: Order cancelled - Patient discharged Performed By: #### L 500.2500, L100.0500 ####[facility] [address] [place], [address] MCV Normal 80-94 [facility] Comment on above: Result Comment: Canc elled via OM: Order cancelled - Patient discharged Performed By: #### L 500.2500, L100.0500 ####[facility] [address] [place], [address] PLT Normal 150-450 [facility] Comment on above: Result Comment: Canc elled via OM: Order cancelled - Patient discharged Performed By: #### L 500.2500, L100.0500 ####[facility] [address] [place], [address] RBC Normal 4.6-6.2 [facility] Comment on above: Result Comment: Canc elled via OM: Order cancelled - Patient discharged Performed By: #### L 500.2500, L100.0500 ####[facility] [address] [place], [address] RDW CV Normal 11.6-14.6 [facility] Comment on above: Result Comment: Canc elled via OM: Order cancelled - Patient discharged Performed By: #### L 500.2500, L100.0500 ####[facility] [address] [place], [address] RDW SD Normal 35.1-43.9 [facility] Comment on above: Result Comment: Canc elled via OM: Order cancelled - Patient discharged Performed By: #### L 500.2500, L100.0500 ####[facility] [address] [place], [address] WBC Normal 4.4-11.0 [facility] Comment on above: Result Comment: Canc elled via OM: Order cancelled - Patient discharged Performed By: #### L 500.2500, L100.0500 ####[facility] [address] [place], [address] Basic Metabolic Profile (BMP )on 07-08-2024 BUN Normal 4-19 [facility] Comment on above: Result Comment: Canc elled via OM: Order cancelled - Patient discharged Performed By: #### L 500.2500, L100.0500 ####[facility] [address] [place], [address] BUN/CRE Normal 10-20 [facility] Comment on above: Result Comment: Canc elled via OM: Order cancelled - Patient discharged Performed By: #### L 500.2500, L100.0500 ####[facility] [address] [place], [address] Calcium Normal 7.6-11.0 [facility] Comment on above: Result Comment: Canc elled via OM: Order cancelled - Patient discharged Performed By: #### L 500.2500, L100.0500 ####[facility] [address] [place], [address] CL Normal 98-108 [facility] Comment on above: Result Comment: Canc elled via OM: Order cancelled - Patient discharged Performed By: #### L 500.2500, L100.0500 ####[facility] [address] [place], [address] CO2 Normal 21.0-32.0 [facility] Comment on above: Result Comment: Canc elled via OM: Order cancelled - Patient discharged Performed By: #### L 500.2500, L100.0500 ####[facility] [address] [place], [address] CREAT,SERUM Normal 0.70-1.20 [facility] Comment on above: Result Comment: Canc elled via OM: Order cancelled - Patient discharged Performed By: #### L 500.2500, L100.0500 ####[facility] [address] [place], [address] eGFR Normal >60 [facility] Comment on above: Result Comment: Canc elled via OM: Order cancelled - Patient discharged Performed By: #### L 500.2500, L100.0500 ####[facility] [address] [place], [address] GAP Normal 5-15 [facility] Comment on above: Result Comment: Canc elled via OM: Order cancelled - Patient discharged Performed By: #### L 500.2500, L100.0500 ####[facility] [address] [place], [address] GLU Normal 70-99 [facility] Comment on above: Result Comment: Canc elled via OM: Order cancelled - Patient discharged Performed By: #### L 500.2500, L100.0500 ####[facility] [address] [place], [address] Potassium Normal 3.3-5.1 [facility] Comment on above: Result Comment: Canc elled via OM: Order cancelled - Patient discharged Performed By: #### L 500.2500, L100.0500 ####[facility] [address] [place], [address] Basic Metabolic Profile (BMP) Normal 133-145 [facility] Comment on above: Result Comment: Canc elled via OM: Order cancelled - Patient discharged Performed By: #### L 500.2500, L100.0500 ####[facility] [address] [place], [address] CBC-Complete Blood Cnt No Di ffon 07-08-2024 HCT Normal 40-54 [facility] Comment on above: Result Comment: Canc elled via OM: Order cancelled - Patient discharged Performed By: #### L 500.2500, L100.0500 ####[facility] [address] [place], [address] HGB Normal 13.0-16.5 [facility] Comment on above: Result Comment: Canc elled via OM: Order cancelled - Patient discharged Performed By: #### L 500.2500, L100.0500 ####[facility] [address] [place], [address] MCH Normal 27.0-32.0 [facility] Comment on above: Result Comment: Canc elled via OM: Order cancelled - Patient discharged Performed By: #### L 500.2500, L100.0500 ####[facility] [address] [place], [address] MCHC Normal 32-36 [facility] Comment on above: Result Comment: Canc elled via OM: Order cancelled - Patient discharged Performed By: #### L 500.2500, L100.0500 ####[facility] [address] [place], [address] MCV Normal 80-94 [facility] Comment on above: Result Comment: Canc elled via OM: Order cancelled - Patient discharged Performed By: #### L 500.2500, L100.0500 ####[facility] [address] [place], [address] PLT Normal 150-450 [facility] Comment on above: Result Comment: Canc elled via OM: Order cancelled - Patient discharged Performed By: #### L 500.2500, L100.0500 ####[facility] [address] [place], [address] RBC Normal 4.6-6.2 [facility] Comment on above: Result Comment: Canc elled via OM: Order cancelled - Patient discharged Performed By: #### L 500.2500, L100.0500 ####[facility] [address] [place], [address] RDW CV Normal 11.6-14.6 [facility] Comment on above: Result Comment: Canc elled via OM: Order cancelled - Patient discharged Performed By: #### L 500.2500, L100.0500 ####[facility] [address] [place], [address] RDW SD Normal 35.1-43.9 [facility] Comment on above: Result Comment: Canc elled via OM: Order cancelled - Patient discharged Performed By: #### L 500.2500, L100.0500 ####[facility] [address] [place], [address] WBC Normal 4.4-11.0 [facility] Comment on above: Result Comment: Canc elled via OM: Order cancelled - Patient discharged Performed By: #### L 500.2500, L100.0500 ####[facility] [address] [place], [address] ANCAon 07-07-2024 Atypical pANCA <1:20 Normal Neg:<1:20 [facility] Comment on above: Result Comment: The atypical pANCA pattern has been observed in asignificant percentage of patients with ulcerative colitis,primary sclerosing cholangitis and autoimmune hepatitis. Performed By: #### L 3400.8000, L3410.2350, L3300.1200, L3600.4030, L3100.3425, L501.6710, L101.9900 ####[facility] [address] [place], [address] Cytoplasmic Ab <1:20 Normal Neg:<1:20 [facility] Comment on above: Performed By: #### L 3400.8000, L3410.2350, L3300.1200, L3600.4030, L3100.3425, L501.6710, L101.9900 ####[facility] [address] [place], [address] Perinuclear Ab. <1:20 Normal Neg:<1:20 [facility] Comment on above: Result Comment: The presence of positive fluorescence exhibiting P-ANCA orC-ANCA patterns alone is not specific for the diagnosis ofWegener's Granulomatosis (WG) or microscopic polyangiitis.Decisions about treatment should not be based solely onANCA IFA results. The [employer] ANCA [employer] Consensusrecommends follow up testing of positive sera with both AL-3 and MPO-ANCA enzyme immunoassays. As many as 5% serumsamples are positive only by EIA. Ref. AM J Clin Ikyvfq7794;111:507-513. Performed By: #### L 3400.8000, L3410.2350, L3300.1200, L3600.4030, L3100.3425, L501.6710, L101.9900 ####[facility] [address] [place], [address] Basic Metabolic Profile (BMP )on 07-07-2024 BUN Normal 4-19 [facility] Comment on above: Result Comment: Canc elled via OM: MD Ordered Performed By: #### L 500.2500 ####[facility] [address] [place], [address] Result Comment: Canc elled via OM: Order cancelled - Patient discharged Performed By: #### L 100.0500, L500.2500 ####[facility] [address] [place], [address] BUN/CRE Normal 10-20 [facility] Comment on above: Result Comment: Canc elled via OM: MD Ordered Performed By: #### L 500.2500 ####[facility] [address] [place], [address] Result Comment: Canc elled via OM: Order cancelled - Patient discharged Performed By: #### L 100.0500, L500.2500 ####[facility] [address] [place], [address] Calcium Normal 7.6-11.0 [facility] Comment on above: Result Comment: Canc elled via OM: MD Ordered Performed By: #### L 500.2500 ####[facility] [address] [place], [address] Result Comment: Canc elled via OM: Order cancelled - Patient discharged Performed By: #### L 100.0500, L500.2500 ####[facility] [address] [place], [address] CL Normal 98-108 [facility] Comment on above: Result Comment: Canc elled via OM: MD Ordered Performed By: #### L 500.2500 ####[facility] [address] [place], [address] Result Comment: Canc elled via OM: Order cancelled - Patient discharged Performed By: #### L 100.0500, L500.2500 ####[facility] [address] [place], [address] CO2 Normal 21.0-32.0 [facility] Comment on above: Result Comment: Canc elled via OM: MD Ordered Performed By: #### L 500.2500 ####[facility] [address] [place], [address] Result Comment: Canc elled via OM: Order cancelled - Patient discharged Performed By: #### L 100.0500, L500.2500 ####[facility] [address] [place], [address] CREAT,SERUM Normal 0.70-1.20 [facility] Comment on above: Result Comment: Canc elled via OM: MD Ordered Performed By: #### L 500.2500 ####[facility] [address] [place], [address] Result Comment: Canc elled via OM: Order cancelled - Patient discharged Performed By: #### L 100.0500, L500.2500 ####[facility] [address] [place], [address] eGFR Normal >60 [facility] Comment on above: Result Comment: Canc elled via OM: MD Ordered Performed By: #### L 500.2500 ####[facility] [address] [place], [address] Result Comment: Canc elled via OM: Order cancelled - Patient discharged Performed By: #### L 100.0500, L500.2500 ####[facility] [address] [place], [address] GAP Normal 5-15 [facility] Comment on above: Result Comment: Canc elled via OM: MD Ordered Performed By: #### L 500.2500 ####[facility] [address] [place], [address] Result Comment: Canc elled via OM: Order cancelled - Patient discharged Performed By: #### L 100.0500, L500.2500 ####[facility] [address] [place], [address] GLU Normal 70-99 [facility] Comment on above: Result Comment: Canc elled via OM: MD Ordered Performed By: #### L 500.2500 ####[facility] [address] [place], [address] Result Comment: Canc elled via OM: Order cancelled - Patient discharged Performed By: #### L 100.0500, L500.2500 ####[facility] [address] [place], [address] Potassium Normal 3.3-5.1 [facility] Comment on above: Result Comment: Canc elled via OM: MD Ordered Performed By: #### L 500.2500 ####[facility] [address] [place], [address] Result Comment: Canc elled via OM: Order cancelled - Patient discharged Performed By: #### L 100.0500, L500.2500 ####[facility] [address] [place], [address] Basic Metabolic Profile (BMP) Normal 133-145 [facility] Comment on above: Result Comment: Canc elled via OM: MD Ordered Performed By: #### L 500.2500 ####[facility] [address] [place], [address] Result Comment: Canc elled via OM: Order cancelled - Patient discharged Performed By: #### L 100.0500, L500.2500 ####[facility] [address] [place], [address] CBC-Complete Blood Cnt No Di ffon 07-07-2024 HCT Normal 40-54 [facility] Comment on above: Result Comment: Canc elled via OM: MD Ordered Performed By: #### L 100.0500 ####[facility] [address] [place], [address] HGB Normal 13.0-16.5 [facility] Comment on above: Result Comment: Canc elled via OM: MD Ordered Performed By: #### L 100.0500 ####[facility] [address] [place], [address] MCH Normal 27.0-32.0 [facility] Comment on above: Result Comment: Canc elled via OM: MD Ordered Performed By: #### L 100.0500 ####[facility] [address] [place], [address] MCHC Normal 32-36 [facility] Comment on above: Result Comment: Canc elled via OM: MD Ordered Performed By: #### L 100.0500 ####[facility] [address] [place], [address] MCV Normal 80-94 [facility] Comment on above: Result Comment: Canc elled via OM: MD Ordered Performed By: #### L 100.0500 ####[facility] [address] [place], [address] PLT Normal 150-450 [facility] Comment on above: Result Comment: Canc elled via OM: MD Ordered Performed By: #### L 100.0500 ####[facility] [address] [place], [address] RBC Normal 4.6-6.2 [facility] Comment on above: Result Comment: Canc elled via OM: MD Ordered Performed By: #### L 100.0500 ####[facility] [address] [place], [address] RDW CV Normal 11.6-14.6 [facility] Comment on above: Result Comment: Canc elled via OM: MD Ordered Performed By: #### L 100.0500 ####[facility] [address] [place], [address] RDW SD Normal 35.1-43.9 [facility] Comment on above: Result Comment: Canc elled via OM: MD Ordered Performed By: #### L 100.0500 ####[facility] [address] [place], [address] WBC Normal 4.4-11.0 [facility] Comment on above: Result Comment: Canc elled via OM: MD Ordered Performed By: #### L 100.0500 ####[facility] [address] [place], [address] HCT Normal 40-54 [facility] Comment on above: Result Comment: Canc elled via OM: Order cancelled - Patient discharged Performed By: #### L 100.0500, L500.2500 ####[facility] [address] [place], [address] HGB Normal 13.0-16.5 [facility] Comment on above: Result Comment: Canc elled via OM: Order cancelled - Patient discharged Performed By: #### L 100.0500, L500.2500 ####[facility] [address] [place], [address] MCH Normal 27.0-32.0 [facility] Comment on above: Result Comment: Canc elled via OM: Order cancelled - Patient discharged Performed By: #### L 100.0500, L500.2500 ####[facility] [address] [place], [address] MCHC Normal 32-36 [facility] Comment on above: Result Comment: Canc elled via OM: Order cancelled - Patient discharged Performed By: #### L 100.0500, L500.2500 ####[facility] [address] [place], [address] MCV Normal 80-94 [facility] Comment on above: Result Comment: Canc elled via OM: Order cancelled - Patient discharged Performed By: #### L 100.0500, L500.2500 ####[facility] [address] [place], [address] PLT Normal 150-450 [facility] Comment on above: Result Comment: Canc elled via OM: Order cancelled - Patient discharged Performed By: #### L 100.0500, L500.2500 ####[facility] [address] [place], [address] RBC Normal 4.6-6.2 [facility] Comment on above: Result Comment: Canc elled via OM: Order cancelled - Patient discharged Performed By: #### L 100.0500, L500.2500 ####[facility] [address] [place], [address] RDW CV Normal 11.6-14.6 [facility] Comment on above: Result Comment: Canc elled via OM: Order cancelled - Patient discharged Performed By: #### L 100.0500, L500.2500 ####[facility] [address] [place], [address] RDW SD Normal 35.1-43.9 [facility] Comment on above: Result Comment: Canc elled via OM: Order cancelled - Patient discharged Performed By: #### L 100.0500, L500.2500 ####[facility] [address] [place], [address] WBC Normal 4.4-11.0 [facility] Comment on above: Result Comment: Canc elled via OM: Order cancelled - Patient discharged Performed By: #### L 100.0500, L500.2500 ####[facility] [address] [place], [address] Celiac AB,[facility] ANTIGLIADIN IGA 2 units Normal 0-19 [facility] Comment on above: Result Comment: Nega tive 0 - 19 Weak Positive 20 - 30 Moderate to Strong Positive >30 Performed By: #### L 3400.8000, L3410.2350, L3300.1200, L3600.4030, L3100.3425, L501.6710, L101.9900 ####[facility] [address] [place], [address] ANTIGLIADIN IGG <1 Normal 0-19 [facility] Comment on above: Result Comment: Nega tive 0 - 19 Weak Positive 20 - 30 Moderate to Strong Positive >30 Performed By: #### L 3400.8000, L3410.2350, L3300.1200, L3600.4030, L3100.3425, L501.6710, L101.9900 ####[facility] [address] [place], [address] ENDOMYSIAL IGA Negative Normal Negative [facility] Comment on above: Performed By: #### L 3400.8000, L3410.2350, L3300.1200, L3600.4030, L3100.3425, L501.6710, L101.9900 ####[facility] [address] [place], [address] tTG IGA <2 Normal 0-3 [facility] Comment on above: Result Comment: Nega tive 0 - 3 Weak Positive 4 - 10 Positive >10 Tissue Transglutaminase (tTG) has been identified as the endomysial antigen. Studies have demonstr- ated that endomysial IgA antibodies have over 99% specificity for gluten sensitive enteropathy. Performed By: #### L 3400.8000, L3410.2350, L3300.1200, L3600.4030, L3100.3425, L501.6710, L101.9900 ####[facility] [address] [place], [address] tTG IGG <2 Normal 0-5 [facility] Comment on above: Result Comment: Nega tive 0 - 5 Weak Positive 6 - 9 Positive >9 Performed By: #### L 3400.8000, L3410.2350, L3300.1200, L3600.4030, L3100.3425, L501.6710, L101.9900 ####[facility] [address] [place], [place], [id number] HELENA + Protein Elect, Serumon 07-07-2024 Albumin [Mass/Vol] 2.1 g/dL Low 2.9-4.4 [facility] Comment on above: Order Comment: N Performed By: #### L 3400.8000, L3410.2350, L3300.1200, L3600.4030, L3100.3425, L501.6710, L101.9900 ####[facility] [address] [place], [address] Albumin/Globulin [Mass ratio] 1.1 {ratio} Normal 0.7-1.7 [facility] Comment on above: Order Comment: N Performed By: #### L 3400.8000, L3410.2350, L3300.1200, L3600.4030, L3100.3425, L501.6710, L101.9900 ####[facility] [address] [place], [place], [id number] GTTVI-2-XIFW 0.2 g/dL Normal 0.0-0.4 [facility] Comment on above: Order Comment: N Performed By: #### L 3400.8000, L3410.2350, L3300.1200, L3600.4030, L3100.3425, L501.6710, L101.9900 ####[facility] [address] [place], [address] BHSCQ-3-VBXS 0.4 g/dL Normal 0.4-1.0 [facility] Comment on above: Order Comment: N Performed By: #### L 3400.8000, L3410.2350, L3300.1200, L3600.4030, L3100.3425, L501.6710, L101.9900 ####[facility] [address] [place], [address] BETA GLOBULIN 0.7 g/dL Normal 0.7-1.3 [facility] Comment on above: Order Comment: N Performed By: #### L 3400.8000, L3410.2350, L3300.1200, L3600.4030, L3100.3425, L501.6710, L101.9900 ####[facility] [address] [place], [address] GAMMA GLOBULIN 0.7 g/dL Normal 0.4-1.8 [facility] Comment on above: Order Comment: N Performed By: #### L 3400.8000, L3410.2350, L3300.1200, L3600.4030, L3100.3425, L501.6710, L101.9900 ####[facility] [address] [place], [address] Globulin (S) [Mass/Vol] 2.0 g/dL Abnormal 2.2-3.9 [facility] Comment on above: Order Comment: N Performed By: #### L 3400.8000, L3410.2350, L3300.1200, L3600.4030, L3100.3425, L501.6710, L101.9900 ####[facility] [address] [place], [address] HELENA RESULT,S Comment Normal . [facility] Comment on above: Order Comment: N Result Comment: No m onoclonality detected. Performed By: #### L 3400.8000, L3410.2350, L3300.1200, L3600.4030, L3100.3425, L501.6710, L101.9900 ####[facility] [address] [place], [address] IMMUNOGLOB A QN 318 mg/dL Normal 61-437 [facility] Comment on above: Order Comment: N Performed By: #### L 3400.8000, L3410.2350, L3300.1200, L3600.4030, L3100.3425, L501.6710, L101.9900 ####[facility] [address] [place], [address] IMMUNOGLOB G QN 839 mg/dL Normal 603-1613 [facility] Comment on above: Order Comment: N Performed By: #### L 3400.8000, L3410.2350, L3300.1200, L3600.4030, L3100.3425, L501.6710, L101.9900 ####[facility] [address] [place], [address] IMMUNOGLOB M QN 48 mg/dL Normal 20-172 [facility] Comment on above: Order Comment: N Performed By: #### L 3400.8000, L3410.2350, L3300.1200, L3600.4030, L3100.3425, L501.6710, L101.9900 ####[facility] [address] [place], [address] M-Herb Not Observed Normal Not Observed [facility] Comment on above: Order Comment: N Performed By: #### L 3400.8000, L3410.2350, L3300.1200, L3600.4030, L3100.3425, L501.6710, L101.9900 ####[facility] [address] [place], [address] NOTE: Comment Normal . [facility] Comment on above: Order Comment: N Result Comment: Prot ein electrophoresis scan will follow via computer,mail, or sales financial analyst delivery. Performed By: #### L 3400.8000, L3410.2350, L3300.1200, L3600.4030, L3100.3425, L501.6710, L101.9900 ####[facility] [address] [place], [address] Protein [Mass/Vol] 4.1 g/dL Low 6.0-8.5 [facility] Comment on above: Order Comment: N Performed By: #### L 3400.8000, L3410.2350, L3300.1200, L3600.4030, L3100.3425, L501.6710, L101.9900 ####[facility] [address] [place], [address] Immunofixation Urineon 07-07 HELENA Urine Comment Normal . [facility] Comment on above: Result Comment: No m onoclonality detected.Performed at: - [facility] [id number] Director: Agustin Arredondo PhD, Phone: [phone] Performed By: #### L 3400.8000, L3410.2350, L3300.1200, L3600.4030, L3100.3425, L501.6710, L101.9900 ####[facility] [address] [place], [address] Quantiferon TB-Gold+on 07-07 QFT MITOGEN JENIFER 2.42 IU/mL Normal . [facility] Comment on above: Performed By: #### L 3400.8000, L3410.2350, L3300.1200, L3600.4030, L3100.3425, L501.6710, L101.9900 ####[facility] [address] [place], [address] QFT NIL VALUE 0.04 IU/mL Normal . [facility] Comment on above: Performed By: #### L 3400.8000, L3410.2350, L3300.1200, L3600.4030, L3100.3425, L501.6710, L101.9900 ####[facility] [address] [place], [address] QFT TB GOLD+ Comment Normal . [facility] Comment on above: Result Comment: Amari tiFERON-TB Gold Plus is a qualitative indirect test forM tuberculosis infection (including disease) and isintended for use in conjunction with risk assessment,radiography, and other medical and diagnostic evaluations.The QuantiFERON-TB Gold Plus result is determined bysubtracting the Nil value from either TB antigen (Ag)value. The Mitogen tube serves as a control for the test. Performed By: #### L 3400.8000, L3410.2350, L3300.1200, L3600.4030, L3100.3425, L501.6710, L101.9900 ####[facility] [address] [place], [address] QFT TB POS CRIT Negative Normal Negative [facility] Comment on above: Result Comment: No r esponse to M tuberculosis antigens detected.Infection with M tuberculosis is unlikely, but high riskindividuals should be considered for additional testing(ATS/IDSA/CDC Clinical Practice Guidelines, 2017). Thereference range is an Antigen minus Nil result of <0.35IU/mL.The specimen received for QuantiFERON testing was incubatedby the ordering institution. Specific procedures outlinedin our Directory of Services and in the package insert forthe QuantiFERON Gold (In Tube) test must be followed toenable for proper stimulation of cells for the productionof interferon gamma. Chemiluminescence immunoassaymethodology Performed By: #### L 3400.8000, L3410.2350, L3300.1200, L3600.4030, L3100.3425, L501.6710, L101.9900 ####[facility] [address] [place], [address] QFT TB1+ AG JENIFER 0.04 IU/mL Normal . [facility] Comment on above: Performed By: #### L 3400.8000, L3410.2350, L3300.1200, L3600.4030, L3100.3425, L501.6710, L101.9900 ####[facility] [address] [place], [address] QFT TB2+ AG JENIFER 0.03 IU/mL Normal . [facility] Comment on above: Performed By: #### L 3400.8000, L3410.2350, L3300.1200, L3600.4030, L3100.3425, L501.6710, L101.9900 ####[facility] [address] [place], [address] Anion gap in Serum or Plasma Ordered By: Chris Aragon on 07-06-2024 Anion gap [Moles/Vol] 6 mmol/L 06-22 [facility] BUN/creatinine ratioOrdered By: Chris Aragon on 07-06-2024 Urea nitrogen/Creatinine [Mass ratio] 14.9 mg/mg 11-27 [facility] Basic Metabolic Profile (BMP )on 07-06-2024 BUN/CRE 14.9 RATIO Normal 11-27 [facility] Comment on above: Performed By: #### L 500.2500, L100.0500 ####[facility] [address] [place], [address] Calcium [Mass/Vol] 7.8 mg/dL Normal 7.6-11.0 [facility] Comment on above: Performed By: #### L 500.2500, L100.0500 ####[facility] [address] [place], [address] Chloride [Moles/Vol] 102 mmol/L Normal 98-108 [facility] Comment on above: Performed By: #### L 500.2500, L100.0500 ####[facility] [address] [place], [address] CO2 [Moles/Vol] 26.4 mmol/L Normal 21.0-32.0 [facility] Comment on above: Performed By: #### L 500.2500, L100.0500 ####[facility] [address] [place], [address] Creatinine [Mass/Vol] 1.49 mg/dL High 0.70-1.20 [facility] Comment on above: Performed By: #### L 500.2500, L100.0500 ####[facility] [address] [place], [address] ECRCL 48.90 ml/min Low 50-250 [facility] Comment on above: Performed By: #### L 500.2500, L100.0500 ####[facility] [address] [place], [address] GAP 6 Normal 5-15 [facility] Comment on above: Performed By: #### L 500.2500, L100.0500 ####[facility] [address] [place], [address] GFR/1.73 sq M.predicted among non-blacks MDRD (S/P/Bld) [Vol rate/Area] 53 mL/min/{1.73_m2} Low >60 [facility] Comment on above: Result Comment: mL/m in/1.73m2 CKD-EPI Creatinine Equation (2020) Performed By: #### L 500.2500, L100.0500 ####[facility] [address] [place], [address] Glucose [Mass/Vol] 145 mg/dL High 70-99 [facility] Comment on above: Performed By: #### L 500.2500, L100.0500 ####[facility] [address] [place], [address] Potassium [Moles/Vol] 5.1 mmol/L Normal 3.3-5.1 [facility] Comment on above: Performed By: #### L 500.2500, L100.0500 ####[facility] [address] [place], [address] Sodium [Moles/Vol] 135 mmol/L Normal 133-145 [facility] Comment on above: Performed By: #### L 500.2500, L100.0500 ####[facility] [address] [place], [address] Urea nitrogen [Mass/Vol] 22 mg/dL High 4-19 [facility] Comment on above: Performed By: #### L 500.2500, L100.0500 ####[facility] [address] [place], [address] Bedside Glucoseon 07-06-2024 FINGERSTICK GLU 213 mg/dL High 74-106 [facility] Comment on above: Result Comment: DAYANARA MORENO OF PATIENT CARE PER NURSING PROTOCOL Performed By: #### L 501.080 ####[facility] [address] [place], [address] CBC-Complete Blood Cnt No Di ffon 07-06-2024 Erythrocyte distribution width (RBC) [Ratio] 17.2 % High 11.6-14.6 [facility] Comment on above: Performed By: #### L 500.2500, L100.0500 ####[facility] [address] [place], [address] Hematocrit (Bld) [Volume fraction] 25.1 % Low 40-54 [facility] Comment on above: Performed By: #### L 500.2500, L100.0500 ####[facility] [address] [place], [address] Hemoglobin (Bld) [Mass/Vol] 8.3 g/dL Low 13.0-16.5 [facility] Comment on above: Performed By: #### L 500.2500, L100.0500 ####[facility] [address] [place], [address] MCH (RBC) [Entitic mass] 36.2 pg High 27.0-32.0 [facility] Comment on above: Performed By: #### L 500.2500, L100.0500 ####[facility] [address] [place], [address] MCHC (RBC) [Mass/Vol] 33.1 g/dL Normal 32-36 [facility] Comment on above: Performed By: #### L 500.2500, L100.0500 ####[facility] [address] [place], [address] MCV (RBC) [Entitic vol] 109.6 fL High 80-94 [facility] Comment on above: Performed By: #### L 500.2500, L100.0500 ####[facility] [address] [place], [address] Platelet mean volume (Bld) [Entitic vol] 11.2 fL Normal 6.2-12.0 [facility] Comment on above: Performed By: #### L 500.2500, L100.0500 ####[facility] [address] [place], [address] Platelets (Bld) [#/Vol] 127 10*3/uL Low 150-450 [facility] Comment on above: Performed By: #### L 500.2500, L100.0500 ####[facility] [address] [place], [address] RBC (Bld) [#/Vol] 2.29 10*6/uL Low 4.6-6.[address] [facility] Comment on above: Performed By: #### L 500.2500, L100.0500 ####[facility] [address] [place], [address] RDW SD 68.8 fl High 35.1-43.9 [facility] Comment on above: Performed By: #### L 500.2500, L100.0500 ####[facility] [address] [place], [address] WBC (Bld) [#/Vol] 3.9 10*3/uL Low 4.4-11.0 [facility] Comment on above: Performed By: #### L 500.2500, L100.0500 ####[facility] [address] [place], [address] Carbon dioxide, total [Moles /volume] in Central venous bloodOrdered By: Chris Aragon on 07-06-2024 CO2 [Moles/Vol] 26.4 mmol/L 21.0-32.0 [facility] Chloride assayOrdered By: Isabel Aragon on 07-06-2024 Chloride [Moles/Vol] 102 mmol/L 98-108 [facility] Discharge Instructionon 06-09 Discharge Instruction Normal [facility] Erythrocyte distribution wid th ratioOrdered By: Chris Aragon on 07-06-2024 Erythrocyte distribution width (RBC) [Ratio] 17.2 % High 11.6-14.6 [facility] Erythrocyte distribution wid th standard deviationOrdered By: Chris Aragon on 07-06-2024 Erythrocyte distribution width (RBC) [Ratio] 68.8 fl High 35.1-43.9 [facility] Glomerular filtration rate ( GFR) estimation/1.73 sq m using serum, plasma, or whole bOrdered By: Chris Aragon on 07-06-2024 GFR/1.73 sq M.predicted among non-blacks MDRD (S/P/Bld) [Vol rate/Area] 53 mL/min/{1.73_m2} Low >60 [facility] Glucose measurement at bedsi deOrdered By: Chris Aragon on 07-06-2024 Glucose [Mass/Vol] 213 mg/dL High 74-106 [facility] Hematocrit Auto (Bld) [Volum e fraction]Ordered By: Chris Aragon on 07-06-2024 Hematocrit (Bld) [Volume fraction] 25.1 % Low 40-54 [facility] Hemoglobin measurementOrdere d By: Chris Aragon on 07-06-2024 Hemoglobin (Bld) [Mass/Vol] 8.3 g/dL Low 13.0-16.5 [facility] MCV (mean corpuscular volume ) determinationOrdered By: Chris Aragon on 07-06-2024 MCV (RBC) [Entitic vol] 109.6 fL High 80-94 [facility] Mean corpuscular hemoglobin (MCH) determinationOrdered By: Chris Aragon on 07-06-2024 MCH (RBC) [Entitic mass] 36.2 pg High 27.0-32.0 [facility] Platelet countOrdered By: Isabel Aragon on 07-06-2024 Platelets (Bld) [#/Vol] 127 10*3/uL Low 150-450 [facility] Potassium measurement (mass/ volume)Ordered By: Chris Aragon on 07-06-2024 Potassium (Unsp spec) [Mass/Vol] 5.1 mmol/L 3.3-5.1 [facility] RBC Auto (Bld) [#/Vol]Ordere d By: Chris Aragon on 07-06-2024 RBC (Bld) [#/Vol] 2.29 10*6/uL Low 4.6-6.[address] [facility] Serum creatinine measurement (mass/volume)Ordered By: Chris Aragon on 07-06-2024 Creatinine [Mass/Vol] 1.49 mg/dL High 0.70-1.20 [facility] Serum glucose measurement (m ass/volume)Ordered By: Chris Aragon on 07-06-2024 Glucose [Mass/Vol] 145 mg/dL High 70-99 [facility] Serum or plasma calcium luciana urement (mass/volume)Ordered By: Chris Aragon on 07-06-2024 Calcium [Mass/Vol] 7.8 mg/dL 7.6-11.0 [facility] Serum or plasma urea nitroge n measurement (mass/volume)Ordered By: Chris Aragon on 07-06-2024 Urea nitrogen [Mass/Vol] 22 mg/dL High 4-19 [facility] Sodium levelOrdered By: Curly carli Margo on 07-06-2024 Sodium [Moles/Vol] 135 mmol/L 133-145 [facility] White blood cell (WBC) count Ordered By: Chris Aragon on 07-06-2024 WBC (Bld) [#/Vol] 3.9 10*3/uL Low 4.4-11.0 [facility] GARETT Comprehensive Panelon ANTI-DNA (DS)AB <1 Normal 0-9 [facility] Comment on above: Result Comment: Nega tive <5 Equivocal 5 - 9 Positive >9 Performed By: #### L 3100.5441 ####[facility] [address] [place], [address] ANTI-SS-A < 0.2 Normal 0.0-0.9 [facility] Comment on above: Performed By: #### L 3100.5440 ####[facility] [address] [place], [address] ANTI-SS-B < 0.2 Normal 0.0-0.9 [facility] Comment on above: Performed By: #### L 3100.5440 ####[facility] [address] [place], [address] Anti-Mitochondrial ABon 06-09 ANTIMITOCHON AB <20.0 Normal 0.0-20.0 [facility] Comment on above: Result Comment: Nega tive 0.0 - 20.0 Equivocal 20.1 - 24.9 Positive >24.9Mitochondrial (M2) Antibodies are found in 90-96% ofpatients with primary biliary cirrhosis.Performed at: [facility] [address] [id number] Director: Agustin Arredondo PhD, Phone: [phone] Performed By: #### L 803.2200, L800.1280 ####[facility] [address] [place], [address] Anti-Smooth Muscle ABSon ANTISMOOTH MUSC 2 Units Normal 0-19 [facility] Comment on above: Result Comment: Nega tive 0 - 19 Weak positive 20 - 30 Moderate to strong positive >30 Actin Antibodies are found in 52-85% of patients with autoimmune hepatitis or chronic active hepatitis and in 22% of patients with primary biliary cirrhosis.Performed at: [facility] [address] [id number] Director: Agustin Arredondo PhD, Phone: [phone] Performed By: #### L 803.2200, L096.1280 ####[facility] [address] [place], [address] Basic Metabolic Profile (BMP )on 07-05-2024 BUN/CRE 13.5 RATIO Normal 10-20 [facility] Comment on above: Performed By: #### L 500.2500 ####[facility] [address] [place], [address] Calcium [Mass/Vol] 7.9 mg/dL Normal 7.6-11.0 [facility] Comment on above: Performed By: #### L 500.2500 ####[facility] [address] [place], [address] Chloride [Moles/Vol] 96 mmol/L Low 98-108 [facility] Comment on above: Performed By: #### L 500.2500 ####[facility] [address] [place], [address] CO2 [Moles/Vol] 28.7 mmol/L Normal 21.0-32.0 [facility] Comment on above: Performed By: #### L 500.2500 ####[facility] [address] [place], [address] Creatinine [Mass/Vol] 1.70 mg/dL High 0.70-1.20 [facility] Comment on above: Performed By: #### L 500.2500 ####[facility] [address] [place], [address] ECRCL 44.02 ml/min Low 50-250 [facility] Comment on above: Performed By: #### L 500.2500 ####[facility] [address] [place], [address] GAP 7 Normal 5-15 [facility] Comment on above: Performed By: #### L 500.2500 ####[facility] [address] [place], [address] GFR/1.73 sq M.predicted among non-blacks MDRD (S/P/Bld) [Vol rate/Area] 45 mL/min/{1.73_m2} Low >60 [facility] Comment on above: Result Comment: mL/m in/1.73m2 CKD-EPI Creatinine Equation (2020) Performed By: #### L 500.2500 ####[facility] [address] [place], [address] Glucose [Mass/Vol] 136 mg/dL High 70-99 [facility] Comment on above: Performed By: #### L 500.2500 ####[facility] [address] [place], [address] Potassium [Moles/Vol] 5.1 mmol/L Normal 3.3-5.1 [facility] Comment on above: Performed By: #### L 500.2500 ####[facility] [address] [place], [address] Sodium [Moles/Vol] 132 mmol/L Low 133-145 [facility] Comment on above: Performed By: #### L 500.2500 ####[facility] [address] [place], [address] Urea nitrogen [Mass/Vol] 23 mg/dL High 4-19 [facility] Comment on above: Performed By: #### L 500.2500 ####[facility] [address] [place], [address] Bedside Glucoseon 07-05-2024 FINGERSTICK GLU 108 mg/dL High 74-106 [facility] Comment on above: Result Comment: DAYANARA GEMENT OF PATIENT CARE PER NURSING PROTOCOL Performed By: #### L 501.080 ####[facility] [address] [place], [address] FINGERSTICK GLU 181 mg/dL High 74-106 [facility] Comment on above: Result Comment: DAYANARA GEMENT OF PATIENT CARE PER NURSING PROTOCOL Performed By: #### L 501.080 ####[facility] [address] [place], [address] FINGERSTICK GLU 147 mg/dL High 74-106 [facility] Comment on above: Result Comment: DAYANARA GEMENT OF PATIENT CARE PER NURSING PROTOCOL Performed By: #### L 501.080 ####[facility] [address] [place], [address] FINGERSTICK GLU 210 mg/dL High 74-106 [facility] Comment on above: Result Comment: DAYANARA GEMENT OF PATIENT CARE PER NURSING PROTOCOL Performed By: #### L 501.080 ####[facility] [address] [place], [address] CBC-Complete Blood Cnt No Di ffon 07-05-2024 Erythrocyte distribution width (RBC) [Ratio] 16.7 % High 11.6-14.6 [facility] Comment on above: Performed By: #### L 100.0500 ####[facility] [address] [place], [address] Hematocrit (Bld) [Volume fraction] 26.7 % Low 40-54 [facility] Comment on above: Performed By: #### L 100.0500 ####[facility] [address] [place], [address] Hemoglobin (Bld) [Mass/Vol] 8.9 g/dL Low 13.0-16.5 [facility] Comment on above: Performed By: #### L 100.0500 ####[facility] [address] [place], [address] MCH (RBC) [Entitic mass] 36.2 pg High 27.0-32.0 [facility] Comment on above: Performed By: #### L 100.0500 ####[facility] [address] [place], [address] MCHC (RBC) [Mass/Vol] 33.3 g/dL Normal 32-36 [facility] Comment on above: Performed By: #### L 100.0500 ####[facility] [address] [place], [address] MCV (RBC) [Entitic vol] 108.5 fL High 80-94 [facility] Comment on above: Performed By: #### L 100.0500 ####[facility] [address] [place], [address] Platelet mean volume (Bld) [Entitic vol] 11.2 fL Normal 6.2-12.0 [facility] Comment on above: Performed By: #### L 100.0500 ####[facility] [address] [place], [address] Platelets (Bld) [#/Vol] 141 10*3/uL Low 150-450 [facility] Comment on above: Performed By: #### L 100.0500 ####[facility] [address] [place], [address] RBC (Bld) [#/Vol] 2.46 10*6/uL Low 4.6-6.[address] [facility] Comment on above: Performed By: #### L 100.0500 ####[facility] [address] [place], [address] RDW SD 66.9 fl High 35.1-43.9 [facility] Comment on above: Performed By: #### L 100.0500 ####[facility] [address] [place], [address] WBC (Bld) [#/Vol] 5.3 10*3/uL Normal 4.4-11.0 [facility] Comment on above: Performed By: #### L 100.0500 ####[facility] [address] [place], [address] Calprotectin, Stoolon [address] 91 ug/g Normal 0-120 [facility] Comment on above: Result Comment: Conc entration Interpretation Follow-Up< 5 - 50 ug/g Normal None>50 -120 ug/g Borderline Re-evaluate in 4-6 weeks >120 ug/g Abnormal Repeat as clinically indicatedPerformed at: - [facility] [address] [id number] Director: Karson Lux MD, Phone: [phone] Performed By: #### L 7000.0700, L7400.3300, L3354.1454 ####[facility] [address] [place], [address] Giardia Lamblia, Stool EIAon 07-05-2024 Giardia Stool Negative Normal Negative [facility] Comment on above: Result Comment: Perf ormed at: - [facility] [address] [id number] Director: Agustin Arredondo PhD, Phone: [phone] Performed By: #### L 7000.0700, L7400.3300, L3410.9994 ####[facility] [address] [place], [address] L3410.9994on 07-05-2024 [facility] Misc. 2 COMMENT Normal . [facility] Comment on above: Order Comment: STOOL [id number] for alpha-1 antitrypsin Result Comment: Perf ormed at: - [facility] [address] [place], [place] [id number] Director: Agustin Arredondo PhD, Phone: [phone] Performed By: #### L 7000.0700, L7400.3300, L3410.9994 ####[facility] [address] [facility] [address] Activated partial thrombopla stin time (aPTT) in platelet poor plasma by coagulation aOrdered By: Antony Espitia on 07-04-2024 aPTT Coag (PPP) [Time] 28.2 s 24.1-36.[address] [facility] Albumin Elph [Mass/Vol]Order ed By: Antony Espitia on 07-04-2024 Albumin [Mass/Vol] 2.1 g/dL Low 2.9-4.4 [facility] Bedside Glucoseon 07-04-2024 FINGERSTICK GLU 184 mg/dL High 74-106 [facility] Comment on above: Result Comment: DAYANARA GEMENT OF PATIENT CARE PER NURSING PROTOCOL Performed By: #### L 501.080 ####[facility] [address] [place], [address] FINGERSTICK GLU 319 mg/dL High 74-106 [facility] Comment on above: Result Comment: DAYANARA GEMENT OF PATIENT CARE PER NURSING PROTOCOL Performed By: #### L 501.080 ####[facility] [address] [facility] [address] FINGERSTICK GLU 113 mg/dL High 74-106 [facility] Comment on above: Result Comment: DAYANARA GEMENT OF PATIENT CARE PER NURSING PROTOCOL Performed By: #### L 501.080 ####[facility] [address] [place], [address] FINGERSTICK GLU 119 mg/dL High 74-106 [facility] Comment on above: Result Comment: DAYANARA MORENO OF PATIENT CARE PER NURSING PROTOCOL Performed By: #### L 501.080 ####[facility] [address] [place], [address] Consultation - Cardiologyon 07-04-2024 Consultation - Cardiology Normal [facility] Interpretation of serum or p lasma protein pattern by immunofixation (narrative resultOrdered By: Antony Espitia on 07-04-2024 Protein Fractions Immunofixation Jose Carlos [Interp] Not Observed g/dL Not Observed [facility] No Panel InformationOrdered By: Antony Espitia on 07-04-2024 Addendum Document Comment . [facility] <2 U/mL 0-5 [facility] Ova and Parasites 8623on OP Normal [facility] Comment on above: Performed By: #### L 501.9985, L503.6005, L505.5000, M600.5000, L501.5200 ####[facility] [address] [place], [address] Partial Thromboplast Timeon 07-04-2024 aPTT Coag (Bld) [Time] 28.2 s Normal 24.1-36.[address] [facility] Comment on above: Performed By: #### L 300.3900, L300.4310 ####[facility] [address] [place], [address] Prothrombin Time w/INRon INR Coag (PPP) [Relative time] 1.2 {INR} Normal [facility] Comment on above: Performed By: #### L 300.3900, L300.4310 ####[facility] [address] [place], [address] PT Coag (PPP) [Time] 15.2 s High 11.7-14.9 [facility] Comment on above: Performed By: #### L 300.3900, L300.4310 ####[facility] [address] [place], [address] Prothrombin timeOrdered By: Antony Espitia on 07-04-2024 PT Coag (PPP) [Time] 15.2 s High 11.7-14.9 [facility] Qualitative QuantiFERON-TB g old in tube testOrdered By: Antony Espitia on 07-04-2024 M. tuberculosis tuberculin stim IFN-g Ql (Bld) 0.04 IU/mL . [facility] Serum DNA double strand anti body assay (units/volume)Ordered By: Antony Espitia on 07-04-2024 DNA double strand Ab Qn (S) [IU]/mL 0-9 [facility] Serum Scl-70 antibody assay (units/volume)Ordered By: Antonyagata Espitia on 07-04-2024 SCL-70 extractable nuclear Ab Qn (S) <0.2 AI 0.0-0.9 [facility] Serum classic neutrophil cyt oplasmic antibody assay (units/volume)Ordered By: Antony Espitia on 07-04-2024 Neutrophil cytoplasmic Ab.classic Qn (S) <1:20 titer Neg:<1:20 [facility] Serum globulin measurement ( mass/volume)Ordered By: Antony Espitia on 07-04-2024 Globulin (S) [Mass/Vol] 2.0 g/dL Low 2.2-3.9 [facility] Serum mitochondria antibody detectionOrdered By: Antony Espitia on 07-04-2024 Mitochondria Ab Ql (S) <20.0 Units 0.0-20.0 [facility] Serum or plasma IgA measurem ent (mass/volume)Ordered By: Antonyagata Espitia on 07-04-2024 IgA [Mass/Vol] 318 mg/dL 61-437 [facility] Serum or plasma IgG measurem ent (mass/volume)Ordered By: Antonyagata Espitia on 07-04-2024 IgG [Mass/Vol] 839 mg/dL 603-1613 [facility] Serum or plasma actin IgG an tibody assay (units/volume)Ordered By: Antony Espitia on 07-04-2024 Actin IgG Qn 2 Units 0-19 [facility] Serum or plasma alpha 1 glob ulin measurement by electrophoresis (mass/volume)Ordered By: Antony Espitia on 07-04-2024 Alpha 1 globulin Elph [Mass/Vol] 0.2 g/dL 0.0-0.4 [facility] Alpha 1 globulin Elph [Mass/Vol] 0.4 g/dL 0.4-1.0 [facility] Serum or plasma beta globuli n measurement by electrophoresis (mass/volume)Ordered By: Antony Espitia on 07-04-2024 Beta globulin Elph [Mass/Vol] 0.7 g/dL 0.7-1.3 [facility] Serum or plasma gamma globul in measurement by electrophoresis (mass/volume)Ordered By: Antony Espitia on 07-04-2024 Gamma globulin Elph [Mass/Vol] 0.7 g/dL 0.4-1.8 [facility] Serum or plasma immunoelectr ophoresis interpretation (nominal result)Ordered By: Antony Espitia on 07-04-2024 Interpretation IEP [Interp] Comment . [facility] Serum or plasma protein luciana urement (mass/volume)Ordered By: Antony Espitia on 07-04-2024 Protein [Mass/Vol] 4.1 g/dL Low 6.0-8.5 [facility] Serum perinuclear neutrophil cytoplasmic antibody titer by immunofluorescenceOrdered By: Antony Espitia on 07-04-2024 Neutrophil cytoplasmic Ab.perinuclear IF (S) [Titer] <1:20 titer Neg:<1:20 [facility] Serum tissue transglutaminas e (tTG) IgA antibody assay (units/volume)Ordered By: Antony Espitia on 07-04-2024 tTG IgA Qn (S) <2 U/mL 0-3 [facility] Basic Metabolic Profile (BMP )on 07-03-2024 BUN/CRE 13.1 RATIO Normal 10-20 [facility] Comment on above: Performed By: #### L 500.2500, L501.5200, L100.0500, L501.2300 ####[facility] [address] [place], [address] Calcium [Mass/Vol] 7.4 mg/dL Low 7.6-11.0 [facility] Comment on above: Performed By: #### L 500.2500, L501.5200, L100.0500, L501.2300 ####[facility] [address] [place], [address] Chloride [Moles/Vol] 103 mmol/L Normal 98-108 [facility] Comment on above: Performed By: #### L 500.2500, L501.5200, L100.0500, L501.2300 ####[facility] [address] [place], [address] CO2 [Moles/Vol] 28.0 mmol/L Normal 21.0-32.0 [facility] Comment on above: Performed By: #### L 500.2500, L501.5200, L100.0500, L501.2300 ####[facility] [address] [place], [address] Creatinine [Mass/Vol] 1.15 mg/dL Normal 0.70-1.20 [facility] Comment on above: Performed By: #### L 500.2500, L501.5200, L100.0500, L501.2300 ####[facility] [address] [place], [address] ECRCL 68.03 ml/min Normal 50-250 [facility] Comment on above: Performed By: #### L 500.2500, L501.5200, L100.0500, L501.2300 ####[facility] [address] [place], [address] GAP 6 Normal 5-15 [facility] Comment on above: Performed By: #### L 500.2500, L501.5200, L100.0500, L501.2300 ####[facility] [address] [place], [address] GFR/1.73 sq M.predicted among non-blacks MDRD (S/P/Bld) [Vol rate/Area] 72 mL/min/{1.73_m2} Normal >60 [facility] Comment on above: Result Comment: mL/m in/1.73m2 CKD-EPI Creatinine Equation (2020) Performed By: #### L 500.2500, L501.5200, L100.0500, L501.2300 ####[facility] [address] [place], [address] Glucose [Mass/Vol] 54 mg/dL Low 70-99 [facility] Comment on above: Performed By: #### L 500.2500, L501.5200, L100.0500, L501.2300 ####[facility] [address] [place], [address] Potassium [Moles/Vol] 4.0 mmol/L Normal 3.3-5.1 [facility] Comment on above: Performed By: #### L 500.2500, L501.5200, L100.0500, L501.2300 ####[facility] [address] [place], [address] Sodium [Moles/Vol] 137 mmol/L Normal 133-145 [facility] Comment on above: Performed By: #### L 500.2500, L501.5200, L100.0500, L501.2300 ####[facility] [address] [place], [address] Urea nitrogen [Mass/Vol] 15 mg/dL Normal 4-19 [facility] Comment on above: Performed By: #### L 500.2500, L501.5200, L100.0500, L501.2300 ####[facility] [address] [place], [address] Bedside Glucoseon 07-03-2024 FINGERSTICK GLU 174 mg/dL High 74-106 [facility] Comment on above: Result Comment: DAYANARA GEMENT OF PATIENT CARE PER NURSING PROTOCOL Performed By: #### L 501.080 ####[facility] [address] [place], [address] FINGERSTICK GLU 170 mg/dL High 74-106 [facility] Comment on above: Result Comment: DAYANARA GEMENT OF PATIENT CARE PER NURSING PROTOCOL Performed By: #### L 501.080 ####[facility] [address] [place], [address] FINGERSTICK GLU 120 mg/dL High 74-106 [facility] Comment on above: Result Comment: DAYANARA GEMENT OF PATIENT CARE PER NURSING PROTOCOL Performed By: #### L 501.080 ####[facility] [address] [place], [address] FINGERSTICK GLU 128 mg/dL High 74-106 [facility] Comment on above: Result Comment: DAYANARA GEMENT OF PATIENT CARE PER NURSING PROTOCOL Performed By: #### L 501.080 ####[facility] [address] [place], [address] CBC-Complete Blood Cnt No Di on 07-03-2024 Erythrocyte distribution width (RBC) [Ratio] 16.9 % High 11.6-14.6 [facility] Comment on above: Performed By: #### L 500.2500, L501.5200, L100.0500, L501.2300 ####[facility] [address] [place], [address] Hematocrit (Bld) [Volume fraction] 24.2 % Low 40-54 [facility] Comment on above: Performed By: #### L 500.2500, L501.5200, L100.0500, L501.2300 ####[facility] [address] [place], [address] Hemoglobin (Bld) [Mass/Vol] 8.0 g/dL Low 13.0-16.5 [facility] Comment on above: Performed By: #### L 500.2500, L501.5200, L100.0500, L501.2300 ####[facility] [address] [place], [address] MCH (RBC) [Entitic mass] 35.9 pg High 27.0-32.0 [facility] Comment on above: Performed By: #### L 500.2500, L501.5200, L100.0500, L501.2300 ####[facility] [address] [place], [address] MCHC (RBC) [Mass/Vol] 33.1 g/dL Normal 32-36 [facility] Comment on above: Performed By: #### L 500.2500, L501.5200, L100.0500, L501.2300 ####[facility] [address] [place], [address] MCV (RBC) [Entitic vol] 108.5 fL High 80-94 [facility] Comment on above: Performed By: #### L 500.2500, L501.5200, L100.0500, L501.2300 ####[facility] [address] [place], [address] Platelet mean volume (Bld) [Entitic vol] 10.8 fL Normal 6.2-12.0 [facility] Comment on above: Performed By: #### L 500.2500, L501.5200, L100.0500, L501.2300 ####[facility] [address] [place], [address] Platelets (Bld) [#/Vol] 107 10*3/uL Low 150-450 [facility] Comment on above: Performed By: #### L 500.2500, L501.5200, L100.0500, L501.2300 ####[facility] [address] [place], [address] RBC (Bld) [#/Vol] 2.23 10*6/uL Low 4.6-6.[address] [facility] Comment on above: Performed By: #### L 500.2500, L501.5200, L100.0500, L501.2300 ####[facility] [address] [place], [address] RDW SD 66.8 fl High 35.1-43.9 [facility] Comment on above: Performed By: #### L 500.2500, L501.5200, L100.0500, L501.2300 ####[facility] [address] [place], [address] WBC (Bld) [#/Vol] 4.3 10*3/uL Low 4.4-11.0 [facility] Comment on above: Performed By: #### L 500.2500, L501.5200, L100.0500, L501.2300 ####[facility] [address] [place], [address] CRPon 07-03-2024 C-REACTIVE PROT < 3.00 Normal 0.0-3.0 [facility] Comment on above: Performed By: #### L 3400.8000, L3410.2350, L3300.1200, L3600.4030, L3100.3425, L501.6710, L101.9900 ####[facility] [address] [place], [address] Calprotectin stoolOrdered By : Antony Espitia on 07-03-2024 Calprotectin stool 91 ug/g 0-120 [facility] Echocardiogram study reportO rdered By: Yaneli Carbone on 07-03-2024 Study report [facility] Work Phone: Erythrocyte Sed Rateon 07-03 SED RATE < 1 Normal 0-20 [facility] Comment on above: Performed By: #### L 3400.8000, L3410.2350, L3300.1200, L3600.4030, L3100.3425, L501.6710, L101.9900 ####[facility] [address] [place], [address] Erythrocyte sedimentation ra teOrdered By: Antony Espitia on 07-03-2024 ESR (Bld) [Velocity] mm/h 0-20 [facility] Giardia lamblia ag stool EIA Ordered By: Antony Espitia on 07-03-2024 G. lamblia Ag IA Ql (Stl) Negative Negative [facility] HIVon 07-03-2024 HIV Non-Reactive Normal Nonreactive [facility] Comment on above: Result Comment: Non- ReactiveReactiveRepeatedly reactive samples must be confirmed according [facility] recommended confirmatory algorithms. The subresults foreither HIVAG or AHIV can be used as an aid in the selectionof the confirmation algorithm for reactive samples.Send out specimens with Reactive results to [facility] forconfirmation.Order the HIV antibody detection and differentiation:lc#[id number] Performed By: #### L 3890.6006 ####[facility] [address] [place], [place], [address] LDHon 07-03-2024 LDH 415 U/L High 87-241 [facility] Comment on above: Performed By: #### L 504.2610 ####[facility] [address] [place], [place], [id number] MR/CON.PCM.GIon 07-03-2024 MR/CON.PCM.GI Normal [facility] Magnesiumon 07-03-2024 Magnesium [Mass/Vol] 1.8 mg/dL Normal 1.5-2.2 [facility] Comment on above: Performed By: #### L 500.2500, L501.5200, L100.0500, L501.2300 ####[facility] [address] [place], [place], [address] Magnesium measurement (mass/ volume)Ordered By: Melonie De La Rosa on 07-03-2024 Magnesium (Unsp spec) [Mass/Vol] 1.8 mg/dL 1.5-2.2 [facility] No Panel InformationOrdered By: Antony Espitia on 07-03-2024 Non-Reactive Nonreactive [facility] Phosphoruson 07-03-2024 Phosphate [Mass/Vol] 3.2 mg/dL Normal 2.7-4.5 [facility] Comment on above: Performed By: #### L 500.2500, L501.5200, L100.0500, L501.2300 ####[facility] [address] [place], [address] Serum or plasma C reactive p rotein measurement (mass/volume)Ordered By: Antony Espitia on 07-03-2024 CRP [Mass/Vol] mg/L 0.0-3.0 [facility] Bedside Glucoseon 07-02-2024 FINGERSTICK GLU 218 mg/dL High 74-106 [facility] Comment on above: Result Comment: DAYANARA GEMENT OF PATIENT CARE PER NURSING PROTOCOL Performed By: #### L 501.080 ####[facility] [address] [place], [address] FINGERSTICK GLU 174 mg/dL High 74-106 [facility] Comment on above: Result Comment: DAYANARA GEMENT OF PATIENT CARE PER NURSING PROTOCOL Performed By: #### L 501.080 ####[facility] [address] [place], [address] FINGERSTICK GLU 107 mg/dL High 74-106 [facility] Comment on above: Result Comment: DAYANARA GEMENT OF PATIENT CARE PER NURSING PROTOCOL Performed By: #### L 501.080 ####[facility] [address] [place], [address] FINGERSTICK GLU 66 mg/dL Low 74-106 [facility] Comment on above: Result Comment: DAYANARA GEMENT OF PATIENT CARE PER NURSING PROTOCOL Performed By: #### L 501.080 ####[facility] [address] [place], [address] FINGERSTICK GLU 116 mg/dL High 74-106 [facility] Comment on above: Result Comment: DAYANARA MORENO OF PATIENT CARE PER NURSING PROTOCOL Performed By: #### L 501.080 ####[facility] [address] [place], [address] Bilirubin, totalOrdered By: Melonie De La Rosa on 07-02-2024 Bilirubin [Mass/Vol] 0.29 mg/dL 0.00-1.30 [facility] Blood manual differential co mment interpretation (narrative result)Ordered By: Melonie De La Rosa on 07-02-2024 Manual differential comment Jose Carlos (Bld) [Interp] See comment [facility] CBC-Complete Blood Cnt No Di ffon 07-02-2024 Erythrocyte distribution width (RBC) [Ratio] 16.7 % High 11.6-14.6 [facility] Comment on above: Performed By: #### L 100.4500, L100.0500 ####[facility] [address] [place], [address] Hematocrit (Bld) [Volume fraction] 22.5 % Low 40-54 [facility] Comment on above: Performed By: #### L 100.4500, L100.0500 ####[facility] [address] [place], [address] Hemoglobin (Bld) [Mass/Vol] 7.5 g/dL Low 13.0-16.5 [facility] Comment on above: Performed By: #### L 100.4500, L100.0500 ####[facility] [address] [place], [address] MCH (RBC) [Entitic mass] 36.4 pg High 27.0-32.0 [facility] Comment on above: Performed By: #### L 100.4500, L100.0500 ####[facility] [address] [place], [address] MCHC (RBC) [Mass/Vol] 33.3 g/dL Normal 32-36 [facility] Comment on above: Performed By: #### L 100.4500, L100.0500 ####[facility] [address] [place], [address] MCV (RBC) [Entitic vol] 109.2 fL High 80-94 [facility] Comment on above: Performed By: #### L 100.4500, L100.0500 ####[facility] [address] [place], [address] Platelet mean volume (Bld) [Entitic vol] 12.5 fL High 6.2-12.0 [facility] Comment on above: Performed By: #### L 100.4500, L100.0500 ####[facility] [address] [place], [address] Platelets (Bld) [#/Vol] 132 10*3/uL Low 150-450 [facility] Comment on above: Performed By: #### L 100.4500, L100.0500 ####[facility] [address] [place], [address] RBC (Bld) [#/Vol] 2.06 10*6/uL Low 4.6-6.[address] [facility] Comment on above: Performed By: #### L 100.4500, L100.0500 ####[facility] [address] [place], [address] RDW SD 67.2 fl High 35.1-43.9 [facility] Comment on above: Performed By: #### L 100.4500, L100.0500 ####[facility] [address] [place], [address] WBC (Bld) [#/Vol] 4.0 10*3/uL Low 4.4-11.0 [facility] Comment on above: Performed By: #### L 100.4500, L100.0500 ####[facility] [address] [place], [address] Comprehensive Metabolic Prof ilon 07-02-2024 Albumin [Mass/Vol] 2.3 g/dL Low 3.4-4.8 [facility] Comment on above: Order Comment: REDRA W. PREVIOUS SPECIMEN REJECTED DUE TOHEMOLYSIS. 07/02/24516 Jamari Aguayo. Performed By: #### L 500.4050, L501.2300, L501.5200 ####[facility] [address] [place], [address] Albumin/Globulin [Mass ratio] 1.2 {ratio} Normal 0.9-2.4 [facility] Comment on above: Order Comment: REDRA W. PREVIOUS SPECIMEN REJECTED DUE TOHEMOLYSIS. 07/02/24516 Jamari Aguayo. Performed By: #### L 500.4050, L501.2300, L501.5200 ####[facility] [address] [place], [address] ALK PHOS 101 U/L Normal 40-129 [facility] Comment on above: Order Comment: REDRA W. PREVIOUS SPECIMEN REJECTED DUE TOHEMOLYSIS. 07/02/24516 Jamari Aguayo. Performed By: #### L 500.4050, L501.2300, L501.5200 ####[facility] [address] [place], [address] ALT [Catalytic activity/Vol] 26 U/L Normal <=46 [facility] Comment on above: Order Comment: REDRA W. PREVIOUS SPECIMEN REJECTED DUE TOHEMOLYSIS. 07/02/24516 Jamari Aguayo. Performed By: #### L 500.4050, L501.2300, L501.5200 ####[facility] [address] [place], [address] AST [Catalytic activity/Vol] 54 U/L High <=37 [facility] Comment on above: Order Comment: REDRA W. PREVIOUS SPECIMEN REJECTED DUE TOHEMOLYSIS. 07/02/24516 Jamari Callahan Olivier. Performed By: #### L 500.4050, L501.2300, L501.5200 ####[facility] [address] [place], [address] Bilirubin [Mass/Vol] 0.29 mg/dL Normal 0.00-1.30 [facility] Comment on above: Order Comment: REDRA W. PREVIOUS SPECIMEN REJECTED DUE TOHEMOLYSIS. 07/02/24516 Jamari London Olivier. Performed By: #### L 500.4050, L501.2300, L501.5200 ####[facility] [address] [place], [address] BUN/CRE 8.9 RATIO Low 10-20 [facility] Comment on above: Order Comment: REDRA W. PREVIOUS SPECIMEN REJECTED DUE TOHEMOLYSIS. 07/02/24516 Jamari Callahan Olivier. Performed By: #### L 500.4050, L501.2300, L501.5200 ####[facility] [address] [place], [address] Calcium [Mass/Vol] 7.7 mg/dL Normal 7.6-11.0 [facility] Comment on above: Order Comment: REDRA W. PREVIOUS SPECIMEN REJECTED DUE TOHEMOLYSIS. 07/02/24516 Jamari Aguayo. Performed By: #### L 500.4050, L501.2300, L501.5200 ####[facility] [address] [place], [address] Chloride [Moles/Vol] 108 mmol/L Normal 98-108 [facility] Comment on above: Order Comment: REDRA W. PREVIOUS SPECIMEN REJECTED DUE TOHEMOLYSIS. 07/02/24516 Jamari Aguayo. Performed By: #### L 500.4050, L501.2300, L501.5200 ####[facility] [address] [place], [address] CO2 [Moles/Vol] 26.7 mmol/L Normal 21.0-32.0 [facility] Comment on above: Order Comment: REDRA W. PREVIOUS SPECIMEN REJECTED DUE TOHEMOLYSIS. 07/02/24516 Jamari Aguayo. Performed By: #### L 500.4050, L501.2300, L501.5200 ####[facility] [address] [place], [address] Creatinine [Mass/Vol] 1.22 mg/dL High 0.70-1.20 [facility] Comment on above: Order Comment: REDRA W. PREVIOUS SPECIMEN REJECTED DUE TOHEMOLYSIS. 07/02/24516 Jamari Aguayo. Performed By: #### L 500.4050, L501.2300, L501.5200 ####[facility] [address] [place], [address] ECRCL 65.56 ml/min Normal 50-250 [facility] Comment on above: Order Comment: REDRA W. PREVIOUS SPECIMEN REJECTED DUE TOHEMOLYSIS. 07/02/24516 Jamari Aguayo. Performed By: #### L 500.4050, L501.2300, L501.5200 ####[facility] [address] [place], [address] GAP 7 Normal 5-15 [facility] Comment on above: Order Comment: REDRA W. PREVIOUS SPECIMEN REJECTED DUE TOHEMOLYSIS. 07/02/24516 Jamari Aguayo. Performed By: #### L 500.4050, L501.2300, L501.5200 ####[facility] [address] [place], [address] GFR/1.73 sq M.predicted among non-blacks MDRD (S/P/Bld) [Vol rate/Area] 67 mL/min/{1.73_m2} Normal >60 [facility] Comment on above: Order Comment: REDRA W. PREVIOUS SPECIMEN REJECTED DUE TOHEMOLYSIS. 07/02/24516 Jamari Aguayo. Result Comment: mL/m in/1.73m2 CKD-EPI Creatinine Equation (2020) Performed By: #### L 500.4050, L501.2300, L501.5200 ####[facility] [address] [place], [address] Globulin (S) [Mass/Vol] 2.0 g/dL Low 2.2-4.2 [facility] Comment on above: Order Comment: REDRA W. PREVIOUS SPECIMEN REJECTED DUE TOHEMOLYSIS. 07/02/24516 Jamari Aguayo. Performed By: #### L 500.4050, L501.2300, L501.5200 ####[facility] [address] [place], [address] Glucose [Mass/Vol] 57 mg/dL Low 70-99 [facility] Comment on above: Order Comment: REDRA W. PREVIOUS SPECIMEN REJECTED DUE TOHEMOLYSIS. 07/02/24516 Jamari Aguayo. Performed By: #### L 500.4050, L501.2300, L501.5200 ####[facility] [address] [place], [address] Potassium [Moles/Vol] 4.1 mmol/L Normal 3.3-5.1 [facility] Comment on above: Order Comment: REDRA W. PREVIOUS SPECIMEN REJECTED DUE TOHEMOLYSIS. 07/02/24516 Jamari Aguayo. Performed By: #### L 500.4050, L501.2300, L501.5200 ####[facility] [address] [place], [address] Sodium [Moles/Vol] 141 mmol/L Normal 133-145 [facility] Comment on above: Order Comment: REDRA W. PREVIOUS SPECIMEN REJECTED DUE TOHEMOLYSIS. 07/02/24516 Jamari Callahan Olivier. Performed By: #### L 500.4050, L501.2300, L501.5200 ####[facility] [address] [place], [address] T PROT 4.3 g/dL Low 5.9-8.4 [facility] Comment on above: Order Comment: REDRA W. PREVIOUS SPECIMEN REJECTED DUE TOHEMOLYSIS. 07/02/24516 Jamari Aguayo. Performed By: #### L 500.4050, L501.2300, L501.5200 ####[facility] [address] [place], [address] Urea nitrogen [Mass/Vol] 11 mg/dL Normal 4-19 [facility] Comment on above: Order Comment: REDRA W. PREVIOUS SPECIMEN REJECTED DUE TOHEMOLYSIS. 07/02/24516 Jamari Aguayo. Performed By: #### L 500.4050, L501.2300, L501.5200 ####[facility] [address] [place], [address] ALB Normal 3.4-4.8 [facility] Comment on above: Result Comment: This specimen has been REJECTED due to Laboratory criteria:Hemolyzed.Candida Duke has been notified of need of recollection.07/02/24515 Jamari London Olivier Performed By: #### L 500.4050, L501.5200, L501.2300 ####[facility] [address] [place], [address] ALK PHOS Normal 40-129 [facility] Comment on above: Result Comment: This specimen has been REJECTED due to Laboratory criteria:Hemolyzed.Candida Duke has been notified of need of recollection.07/02/24515 Jamari Aguayo Performed By: #### L 500.4050, L501.5200, L501.2300 ####[facility] [address] [place], [address] ALT Normal <=46 [facility] Comment on above: Result Comment: This specimen has been REJECTED due to Laboratory criteria:Hemolyzed.Candida Duke has been notified of need of recollection.07/02/24515 Jamari L White Performed By: #### L 500.4050, L501.5200, L501.2300 ####[facility] [address] [place], [address] AST Normal <=37 [facility] Comment on above: Result Comment: This specimen has been REJECTED due to Laboratory criteria:Hemolyzed.Candida Duke has been notified of need of recollection.07/02/24515 Jamari L White Performed By: #### L 500.4050, L501.5200, L501.2300 ####[facility] [address] [place], [address] BUN Normal 4-19 [facility] Comment on above: Result Comment: This specimen has been REJECTED due to Laboratory criteria:Hemolyzed.Candida Duke has been notified of need of recollection.07/02/24515 Jamari L White Performed By: #### L 500.4050, L501.5200, L501.2300 ####[facility] [address] [place], [address] BUN/CRE Normal 10-20 [facility] Comment on above: Result Comment: This specimen has been REJECTED due to Laboratory criteria:Hemolyzed.Candida Duke has been notified of need of recollection.07/02/24515 Jamari L White Performed By: #### L 500.4050, L501.5200, L501.2300 ####[facility] [address] [place], [address] Calcium Normal 7.6-11.0 [facility] Comment on above: Result Comment: This specimen has been REJECTED due to Laboratory criteria:Hemolyzed.Candida Duke has been notified of need of recollection.07/02/24515 Jamari L White Performed By: #### L 500.4050, L501.5200, L501.2300 ####[facility] [address] [place], [address] CL Normal 98-108 [facility] Comment on above: Result Comment: This specimen has been REJECTED due to Laboratory criteria:Hemolyzed.Candida Duke has been notified of need of recollection.07/02/24515 Jamari Callahan White Performed By: #### L 500.4050, L501.5200, L501.2300 ####[facility] [address] [place], [address] CO2 Normal 21.0-32.0 [facility] Comment on above: Result Comment: This specimen has been REJECTED due to Laboratory criteria:Hemolyzed.Candida Duke has been notified of need of recollection.07/02/24515 Jamari Callahan White Performed By: #### L 500.4050, L501.5200, L501.2300 ####[facility] [address] [place], [address] CREAT,SERUM Normal 0.70-1.20 [facility] Comment on above: Result Comment: This specimen has been REJECTED due to Laboratory criteria:Hemolyzed.Candida Duke has been notified of need of recollection.07/02/24515 Jamari Callahan White Performed By: #### L 500.4050, L501.5200, L501.2300 ####[facility] [address] [place], [address] eGFR Normal >60 [facility] Comment on above: Result Comment: This specimen has been REJECTED due to Laboratory criteria:Hemolyzed.Candida Duke has been notified of need of recollection.07/02/24515 Jamari Callahan White Performed By: #### L 500.4050, L501.5200, L501.2300 ####[facility] [address] [place], [address] GAP Normal 5-15 [facility] Comment on above: Result Comment: This specimen has been REJECTED due to Laboratory criteria:Hemolyzed.Candida Duke has been notified of need of recollection.07/02/24515 Jamari L White Performed By: #### L 500.4050, L501.5200, L501.2300 ####[facility] [address] [place], [address] GLU Normal 70-99 [facility] Comment on above: Result Comment: This specimen has been REJECTED due to Laboratory criteria:Hemolyzed.Candida Duke has been notified of need of recollection.07/02/24515 Jamari L White Performed By: #### L 500.4050, L501.5200, L501.2300 ####[facility] [address] [place], [address] Potassium Normal 3.3-5.1 [facility] Comment on above: Result Comment: This specimen has been REJECTED due to Laboratory criteria:Hemolyzed.Candida Duke has been notified of need of recollection.07/02/24515 Jamari L White Performed By: #### L 500.4050, L501.5200, L501.2300 ####[facility] [address] [place], [address] T BILI Normal 0.00-1.30 [facility] Comment on above: Result Comment: This specimen has been REJECTED due to Laboratory criteria:Hemolyzed.Candida Duke has been notified of need of recollection.07/02/24515 Jamari L White Performed By: #### L 500.4050, L501.5200, L501.2300 ####[facility] [address] [place], [address] T PROT Normal 5.9-8.4 [facility] Comment on above: Result Comment: This specimen has been REJECTED due to Laboratory criteria:Hemolyzed.Candida Duke has been notified of need of recollection.07/02/24515 Jamari L White Performed By: #### L 500.4050, L501.5200, L501.2300 ####[facility] [address] [place], [address] Comprehensive Metabolic Profil Normal 133-145 [facility] Comment on above: Result Comment: This specimen has been REJECTED due to Laboratory criteria:Hemolyzed.Candida Duke has been notified of need of recollection.07/02/24515 Jamari Aguayo Performed By: #### L 500.4050, L501.5200, L501.2300 ####[facility] [address] [place], [address] Culture, Anaerobic Any Sourc chase 07-02-2024 CUAN No growth in 5 days. Normal [facility] Comment on above: Performed By: #### M 100.2000, M100.2900, M100.4001 ####[facility] [address] [place], [address] Differential Commenton 07-02 SMEAR COMMENT Normal [facility] Comment on above: Result Comment: 2+ A NISOCYTOSIS1+ OVALOCYTES1+ SHISTOCYTESRARE ACANTHOCYTESSLIGHT DECREASE PLATELETS Performed By: #### L 100.4500, L100.0500 ####[facility] [address] [place], [address] Magnesiumon 07-02-2024 Magnesium [Mass/Vol] 1.8 mg/dL Normal 1.5-2.2 [facility] Comment on above: Order Comment: RED W. PREVIOUS SPECIMEN REJECTED DUE TOHEMOLYSIS. 07/02/2417 Jamari Aguayo. Performed By: #### L 500.4050, L501.2300, L501.5200 ####[facility] [address] [place], [address] Magnesium [Mass/Vol] 1.8 mg/dL Normal 1.5-2.2 [facility] Comment on above: Order Comment: This specimen has been REJECTED due to Laboratory criteria:Hemolyzed.Candida Duke has been notified of need of recollection.07/02/24515 Jamari Aguayo Result Comment: This specimen has been REJECTED due to Laboratory criteria:Hemolyzed.Candida Duke has been notified of need of recollection.07/02/24515 Jamari Aguayo Performed By: #### L 500.4050, L501.5200, L501.2300 ####[facility] [address] [place], [address] No Panel InformationOrdered By: Melonie De La Rosa on 07-02-2024 54 U/L High <38 [facility] Phosphoruson 07-02-2024 Phosphate [Mass/Vol] 2.4 mg/dL Low 2.7-4.5 [facility] Comment on above: Order Comment: REDRA W. PREVIOUS SPECIMEN REJECTED DUE TOHEMOLYSIS. 07/02/24516 Jamari London Olivier. Performed By: #### L 500.4050, L501.2300, L501.5200 ####[facility] [address] [place], [address] Phosphate [Mass/Vol] 2.7 mg/dL Normal 2.7-4.5 [facility] Comment on above: Order Comment: This specimen has been REJECTED due to Laboratory criteria:Hemolyzed.Candida Duke has been notified of need of recollection.07/02/24515 Jamari Aguayo Result Comment: This specimen has been REJECTED due to Laboratory criteria:Hemolyzed.Candida Duke has been notified of need of recollection.07/02/24515 Jamari Aguayo Performed By: #### L 500.4050, L501.5200, L501.2300 ####[facility] [address] [place], [address] Serum globulin measurementOr dered By: Melonie De La Rosa on 07-02-2024 Globulin (S) [Mass/Vol] 2.0 g/dL Low 2.2-4.2 [facility] Serum or plasma alanine padilla otransferase (ALT) measurementOrdered By: Melonie De La Rosa on 07-02-2024 ALT [Catalytic activity/Vol] 26 U/L <47 [facility] Serum or plasma albumin luciana urement (mass/volume)Ordered By: Melonie De La Rosa on 07-02-2024 Albumin [Mass/Vol] 2.3 g/dL Low 3.4-4.8 [facility] Serum or plasma albumin/glob ulin mass ratioOrdered By: Melonie De La Rosa on 07-02-2024 Albumin/Globulin [Mass ratio] 1.2 {ratio} 0.9-2.4 [facility] Serum or plasma alkaline nolan sphatase measurementOrdered By: Melonie De La Rosa on 07-02-2024 ALP [Catalytic activity/Vol] 101 U/L 40-129 [facility] Total proteinOrdered By: Shira De La Rosa on 07-02-2024 Protein [Mass/Vol] 4.3 g/dL Low 5.9-8.4 [facility] Absolute lymphocyte countOrd ered By: Conrado Fraser on 07-01-2024 Lymphocytes Auto (Unsp spec) [#/Vol] 0.93 10*3/uL 0.83-4.51 [facility] Automated lymphocyte count a s percentage of total leukocytesOrdered By: Conrado Fraser on 07-01-2024 Lymphocytes/100 WBC Auto (Unsp spec) 19.3 % 19-41 [facility] Basophil percentageOrdered B y: Conrado Fraser on 07-01-2024 Basophils/100 WBC (Bld) 0.8 % 0-1 [facility] Bedside Glucoseon 07-01-2024 FINGERSTICK GLU 158 mg/dL High 74-106 [facility] Comment on above: Result Comment: DAYANARA GEMENT OF PATIENT CARE PER NURSING PROTOCOL Performed By: #### L 501.080 ####[facility] [address] [facility] [address] FINGERSTICK GLU 237 mg/dL High [address] [facility] Comment on above: Result Comment: DAYANARA GEMENT OF PATIENT CARE PER NURSING PROTOCOL Performed By: #### L 501.080 ####[facility] [address] [facility] [address] FINGERSTICK GLU 114 mg/dL High [address] [facility] Comment on above: Result Comment: DAYANARA GEMENT OF PATIENT CARE PER NURSING PROTOCOL Performed By: #### L 501.080 ####[facility] [address] [place], [address] FINGERSTICK GLU 238 mg/dL High 74-106 [facility] Comment on above: Result Comment: DAYANARA GEMENT OF PATIENT CARE PER NURSING PROTOCOL Performed By: #### L 501.080 ####[facility] [address] [place], [address] CBC W/Diff, Automatedon - Anisocytosis Ql (Bld) 1+ Normal [facility] Comment on above: Performed By: #### L 500.4050, L100.0100, L501.2300 ####[facility] [address] [place], [address] MACROCYTOSIS 1+ Normal [facility] Comment on above: Performed By: #### L 500.4050, L100.0100, L501.2300 ####[facility] [address] [place], [address] SMEAR COMMENT SCANNED Normal [facility] Comment on above: Performed By: #### L 500.4050, L100.0100, L501.2300 ####[facility] [address] [place], [address] Comprehensive Metabolic Prof ilon 07-01-2024 GAP 7 Normal 5-15 [facility] Comment on above: Performed By: #### L 500.4050, L100.0100, L501.2300 ####[facility] [address] [place], [address] Albumin [Mass/Vol] 2.4 g/dL Low 3.4-4.8 [facility] Comment on above: Performed By: #### L 500.4050, L100.0100, L501.2300 ####[facility] [address] [place], [address] Albumin/Globulin [Mass ratio] 1.3 {ratio} Normal 0.9-2.4 [facility] Comment on above: Performed By: #### L 500.4050, L100.0100, L501.2300 ####[facility] [address] [place], [address] ALK PHOS 87 U/L Normal 40-129 [facility] Comment on above: Performed By: #### L 500.4050, L100.0100, L501.2300 ####[facility] [address] [place], [address] ALT [Catalytic activity/Vol] 25 U/L Normal <=46 [facility] Comment on above: Performed By: #### L 500.4050, L100.0100, L501.2300 ####[facility] [address] [place], [address] AST [Catalytic activity/Vol] 43 U/L High <=37 [facility] Comment on above: Performed By: #### L 500.4050, L100.0100, L501.2300 ####[facility] [address] [place], [address] Bilirubin [Mass/Vol] 0.36 mg/dL Normal 0.00-1.30 [facility] Comment on above: Performed By: #### L 500.4050, L100.0100, L501.2300 ####[facility] [address] [place], [address] BUN/CRE 8.0 RATIO Low 10-20 [facility] Comment on above: Performed By: #### L 500.4050, L100.0100, L501.2300 ####[facility] [address] [place], [address] Calcium [Mass/Vol] 7.7 mg/dL Normal 7.6-11.0 [facility] Comment on above: Performed By: #### L 500.4050, L100.0100, L501.2300 ####[facility] [address] [place], [address] Chloride [Moles/Vol] 103 mmol/L Normal 98-108 [facility] Comment on above: Performed By: #### L 500.4050, L100.0100, L501.2300 ####[facility] [address] [place], [address] CO2 [Moles/Vol] 25.9 mmol/L Normal 21.0-32.0 [facility] Comment on above: Performed By: #### L 500.4050, L100.0100, L501.2300 ####[facility] [address] [place], [address] Creatinine [Mass/Vol] 1.28 mg/dL High 0.70-1.20 [facility] Comment on above: Performed By: #### L 500.4050, L100.0100, L501.2300 ####[facility] [address] [place], [address] ECRCL 64.55 ml/min Normal 50-250 [facility] Comment on above: Performed By: #### L 500.4050, L100.0100, L501.2300 ####[facility] [address] [place], [address] GFR/1.73 sq M.predicted among non-blacks MDRD (S/P/Bld) [Vol rate/Area] 64 mL/min/{1.73_m2} Normal >60 [facility] Comment on above: Result Comment: mL/m in/1.73m2 CKD-EPI Creatinine Equation (2020) Performed By: #### L 500.4050, L100.0100, L501.2300 ####[facility] [address] [place], [address] Globulin (S) [Mass/Vol] 1.9 g/dL Low 2.2-4.2 [facility] Comment on above: Performed By: #### L 500.4050, L100.0100, L501.2300 ####[facility] [address] [place], [address] Glucose [Mass/Vol] 256 mg/dL High 70-99 [facility] Comment on above: Performed By: #### L 500.4050, L100.0100, L501.2300 ####[facility] [address] [place], [address] Potassium [Moles/Vol] 4.2 mmol/L Normal 3.3-5.1 [facility] Comment on above: Performed By: #### L 500.4050, L100.0100, L501.2300 ####[facility] [address] [place], [address] Sodium [Moles/Vol] 136 mmol/L Normal 133-145 [facility] Comment on above: Performed By: #### L 500.4050, L100.0100, L501.2300 ####[facility] [address] [place], [address] T PROT 4.4 g/dL Low 5.9-8.4 [facility] Comment on above: Performed By: #### L 500.4050, L100.0100, L501.2300 ####[facility] [address] [place], [address] Urea nitrogen [Mass/Vol] 10 mg/dL Normal 4-19 [facility] Comment on above: Performed By: #### L 500.4050, L100.0100, L501.2300 ####[facility] [address] [place], [address] Echo Completeon 07-01-2024 Echo Complete Normal [facility] Eosinophil percentageOrdered By: Conrado Fraser on 07-01-2024 Eosinophils/100 WBC (Bld) 1.0 % 0-5 [facility] Immature granulocytes/100 WB C Auto (Bld)Ordered By: Conrado Fraser on 07-01-2024 Immature granulocytes/100 WBC (Bld) 0.200 % 0.0-0.9 [facility] L499.0043on 07-01-2024 Trop T High Sen 97 ng/L Invalid Interpretation Code <=22 [facility] Comment on above: Result Comment: Crit ical Result(s) Called at 0152: by:??NBURNS TO EAFFOLTERResults read back by same. Performed By: #### L 499.0043 ####[facility] [address] [place], [address] Macrocytes detectionOrdered By: Conrado Fraser on 07-01-2024 Macrocytes Ql (Bld) 1+ [facility] Monocyte percentageOrdered B y: Conrado Fraser on 07-01-2024 Monocytes/100 WBC (Bld) 9.8 % 0-10 [facility] Neutrophil percentageOrdered By: Conrado Fraser on 07-01-2024 Neutrophils/100 WBC (Bld) 68.9 % 47-70 [facility] No Panel InformationOrdered By: Conrado Fraser on 07-01-2024 1+ [facility] Operative Reporton Operative Report Normal [facility] Phosphoruson 07-01-2024 Phosphate [Mass/Vol] 3.1 mg/dL Normal 2.7-4.5 [facility] Comment on above: Performed By: #### L 500.4050, L100.0100, L501.2300 ####[facility] [address] [place], [place], [address] Troponin T.cardiac [Mass/vol ume] in Serum or Plasma by High sensitivity methodOrdered By: Conrado Fraser on 05-24-2025 Troponin T.cardiac High sensitivity method [Mass/Vol] 97 ng/L High <22 [facility] Abdomen/Pelvis W IV Cont ONL Yon 06-30-2024 Abdomen/Pelvis W IV Cont ONLY Normal [facility] Alcohol, Blood (Medical)-Ser umon 06-30-2024 SERUM ETOH < 10.1 Normal <=10.0 [facility] Comment on above: Result Comment: This test is for medical purposes only. The legaldefinition of intoxication varies according to local law. Performed By: #### L 500.3400, L100.0100, L503.6005, L501.2450, L500.2500, L300.3900, L300.4310, L501.9100 ####[facility] [address] [place], [address] Basic Metabolic Profile (BMP )on 06-30-2024 BUN/CRE 7.7 RATIO Low 10-20 [facility] Comment on above: Performed By: #### L 500.3400, L100.0100, L503.6005, L501.2450, L500.2500, L300.3900, L300.4310, L501.9100 ####[facility] [address] [place], [address] Calcium [Mass/Vol] 8.2 mg/dL Normal 7.6-11.0 [facility] Comment on above: Performed By: #### L 500.3400, L100.0100, L503.6005, L501.2450, L500.2500, L300.3900, L300.4310, L501.9100 ####[facility] [address] [place], [address] Chloride [Moles/Vol] 101 mmol/L Normal 98-108 [facility] Comment on above: Performed By: #### L 500.3400, L100.0100, L503.6005, L501.2450, L500.2500, L300.3900, L300.4310, L501.9100 ####[facility] [address] [place], [address] CO2 [Moles/Vol] 24.7 mmol/L Normal 21.0-32.0 [facility] Comment on above: Performed By: #### L 500.3400, L100.0100, L503.6005, L501.2450, L500.2500, L300.3900, L300.4310, L501.9100 ####[facility] [address] [place], [address] Creatinine [Mass/Vol] 1.41 mg/dL High 0.70-1.20 [facility] Comment on above: Performed By: #### L 500.3400, L100.0100, L503.6005, L501.2450, L500.2500, L300.3900, L300.4310, L501.9100 ####[facility] [address] [place], [place], [phone] ECRCL 58.60 ml/min Normal 50-250 [facility] Comment on above: Performed By: #### L 500.3400, L100.0100, L503.6005, L501.2450, L500.2500, L300.3900, L300.4310, L501.9100 ####[facility] [address] [place], [address] GAP 9 Normal 5-15 [facility] Comment on above: Performed By: #### L 500.3400, L100.0100, L503.6005, L501.2450, L500.2500, L300.3900, L300.4310, L501.9100 ####[facility] [address] [place], [address] GFR/1.73 sq M.predicted among non-blacks MDRD (S/P/Bld) [Vol rate/Area] 57 mL/min/{1.73_m2} Low >60 [facility] Comment on above: Result Comment: mL/m in/1.73m2 CKD-EPI Creatinine Equation (2020) Performed By: #### L 500.3400, L100.0100, L503.6005, L501.2450, L500.2500, L300.3900, L300.4310, L501.9100 ####[facility] [address] [place], [address] Glucose [Mass/Vol] 159 mg/dL High 70-99 [facility] Comment on above: Performed By: #### L 500.3400, L100.0100, L503.6005, L501.2450, L500.2500, L300.3900, L300.4310, L501.9100 ####[facility] [address] [place], [address] Potassium [Moles/Vol] 4.2 mmol/L Normal 3.3-5.1 [facility] Comment on above: Performed By: #### L 500.3400, L100.0100, L503.6005, L501.2450, L500.2500, L300.3900, L300.4310, L501.9100 ####[facility] [address] [place], [address] Sodium [Moles/Vol] 135 mmol/L Normal 133-145 [facility] Comment on above: Performed By: #### L 500.3400, L100.0100, L503.6005, L501.2450, L500.2500, L300.3900, L300.4310, L501.9100 ####[facility] [address] [place], [address] Urea nitrogen [Mass/Vol] 11 mg/dL Normal 4-19 [facility] Comment on above: Performed By: #### L 500.3400, L100.0100, L503.6005, L501.2450, L500.2500, L300.3900, L300.4310, L501.9100 ####[facility] [address] [place], [address] Bedside Glucoseon 06-30-2024 FINGERSTICK GLU 123 mg/dL High 74-106 [facility] Comment on above: Result Comment: DAYANARA MORENO OF PATIENT CARE PER NURSING PROTOCOL Performed By: #### L 501.080 ####[facility] [address] [place], [place], [address] Bilirubin Test strip Ql (U)O rdered By: Narendra Gonzalez on 06-30-2024 Bilirubin Ql (U) 1 mg/dL High Negative [facility] Bilirubin directOrdered By: Narendra Gonzalez on 06-30-2024 Bilirubin.direct [Mass/Vol] 0.27 mg/dL 0.00-0.30 [facility] Blood polychromasia detectio n by light microscopyOrdered By: Narendra Gonzalez on 06-30-2024 Polychromasia LM Ql (Bld) 2+ [facility] CBC W/Diff, Automatedon 06-09 Anisocytosis Ql (Bld) 2+ Normal [facility] Comment on above: Performed By: #### L 500.3400, L100.0100, L503.6005, L501.2450, L500.2500, L300.3900, L300.4310, L501.9100 ####[facility] [address] [place], [place], [address] POLYCHROMASIA 2+ Normal [facility] Comment on above: Performed By: #### L 500.3400, L100.0100, L503.6005, L501.2450, L500.2500, L300.3900, L300.4310, L501.9100 ####[facility] [address] [place], [address] CO2 (BldV) [Moles/Vol]Ordere d By: Conrado Fraser on 06-30-2024 CO2 [Moles/Vol] 29 mmol/L [facility] Chest 1 View (Portable)on Chest 1 View (Portable) Normal [facility] Emergency Department Summary on 06-30-2024 Emergency Department Summary Normal [facility] H AND P Exam - Hospitaliston 06-30-2024 H&P Exam - Hospitalist Normal [facility] Ketones Test strip Ql (U)Ord ered By: Narendra Gonzalez on 06-30-2024 Ketones Ql (U) 5 mg/dl High Negative [facility] L499.0042on 06-30-2024 Trop T High Sen 98 ng/L Invalid Interpretation Code <=22 [facility] Comment on above: Result Comment: Crit ical Result(s) Called at: 2337 by:??MATTHEW FLETCHER. Results read back by same. Performed By: #### L 499.0042 ####[facility] [address] [place], [place], [address] L501.4021on 06-30-2024 Trop T High Sen 93 ng/L Invalid Interpretation Code <=22 [facility] Comment on above: Order Comment: PT RE FUSED A PHLEBOTOMY DRAW. ONLY WOULD LET NURSE DRAW FROM LINE. Result Comment: Crit ical Result(s) Called at: 2144 by: SYD OVIEDO??Results read back by same. Performed By: #### L 501.4021 ####[facility] [address] [place], [place], [address] L503.7505on 06-30-2024 Natriuretic peptide B (Bld) [Mass/Vol] 42640 pg/mL High <=900 [facility] Comment on above: Result Comment: Hear t Failure Unlikely: < 300 pg/mLHeart Failure Likely< 50 Years: > 450 pg/mL50-75 Years: > 900 pg/mL>75 Years: > 1800 pg/mL Performed By: #### L 503.7505 ####[facility] [address] [place], [place], [address] Lactic Acidon 06-30-2024 Lactate [Moles/Vol] 1.4 mmol/L Normal 0.0-2.[address] [facility] Comment on above: Order Comment: Y Performed By: #### L 500.3400, L100.0100, L503.6005, L501.2450, L500.2500, L300.3900, L300.4310, L501.9100 ####[facility] [address] [place], [place], [id number] Lipaseon 06-30-2024 Lipase [Catalytic activity/Vol] 6 U/L Low 13-75 [facility] Comment on above: Result Comment: Mary Anne zamorano note:LIPASE revised reference range effective 22.New Lipase methodology. Expected to produce lower valuesthan the previous assay method.NEW Reference Range: 13 - 75 U/L Performed By: #### L 500.3400, L100.0100, L503.6005, L501.2450, L500.2500, L300.3900, L300.4310, L501.9100 ####[facility] [address] [place], [place], [phone] Liver Profileon 06-30-2024 Albumin [Mass/Vol] 2.5 g/dL Low 3.4-4.8 [facility] Comment on above: Performed By: #### L 500.3400, L100.0100, L503.6005, L501.2450, L500.2500, L300.3900, L300.4310, L501.9100 ####[facility] [address] [place], [place], [phone] ALK PHOS 117 U/L Normal 40-129 [facility] Comment on above: Performed By: #### L 500.3400, L100.0100, L503.6005, L501.2450, L500.2500, L300.3900, L300.4310, L501.9100 ####[facility] [address] [place], [address] ALT [Catalytic activity/Vol] 34 U/L Normal <=46 [facility] Comment on above: Performed By: #### L 500.3400, L100.0100, L503.6005, L501.2450, L500.2500, L300.3900, L300.4310, L501.9100 ####[facility] [address] [place], [address] AST [Catalytic activity/Vol] 55 U/L High <=37 [facility] Comment on above: Performed By: #### L 500.3400, L100.0100, L503.6005, L501.2450, L500.2500, L300.3900, L300.4310, L501.9100 ####[facility] [address] [place], [place], [phone] Bilirubin [Mass/Vol] 0.45 mg/dL Normal 0.00-1.30 [facility] Comment on above: Performed By: #### L 500.3400, L100.0100, L503.6005, L501.2450, L500.2500, L300.3900, L300.4310, L501.9100 ####[facility] [address] [place], [address] Bilirubin.direct [Mass/Vol] 0.27 mg/dL Normal 0.00-0.30 [facility] Comment on above: Performed By: #### L 500.3400, L100.0100, L503.6005, L501.2450, L500.2500, L300.3900, L300.4310, L501.9100 ####[facility] [address] [place], [address] Globulin (S) [Mass/Vol] 2.6 g/dL Normal 2.2-4.2 [facility] Comment on above: Performed By: #### L 500.3400, L100.0100, L503.6005, L501.2450, L500.2500, L300.3900, L300.4310, L501.9100 ####[facility] [address] [place], [place], [phone] T PROT 5.1 g/dL Low 5.9-8.4 [facility] Comment on above: Performed By: #### L 500.3400, L100.0100, L503.6005, L501.2450, L500.2500, L300.3900, L300.4310, L501.9100 ####[facility] [address] [place], [place], [phone] Magnesiumon 06-30-2024 Magnesium [Mass/Vol] 1.6 mg/dL Normal 1.5-2.2 [facility] Comment on above: Performed By: #### L 501.5200 ####[facility] [address] [place], [place], [phone] Mucus LM Ql (Urine sed)Order ed By: Narendra Gonzalez on 06-30-2024 Mucus Ql (Urine sed) 0 SEEN /hpf [facility] Natriuretic peptide.B prohor irene N-Terminal [Mass/volume] in Serum or PlasmaOrdered By: Conrado Fraser on 06-30-2024 Natriuretic peptide.B prohormone N-Terminal [Mass/Vol] 95549 pg/mL High <900 [facility] Nitrite Test strip Ql (U)Ord ered By: Narendra Gonzalez on 06-30-2024 Nitrite Ql (U) Negative Negative [facility] No Panel InformationOrdered By: Conrado Fraser on 06-30-2024 ROSA [facility] Not entered [facility] Room Air [facility] Partial Thromboplast Timeon 06-30-2024 aPTT Coag (Bld) [Time] 29.0 s Normal 24.1-36.[address] [facility] Comment on above: Performed By: #### L 500.3400, L100.0100, L503.6005, L501.2450, L500.2500, L300.3900, L300.4310, L501.9100 ####[facility] [address] [place], [place], [phone] Protein Test strip Ql (U)Ord ered By: Narendra Gonzalez on 06-30-2024 Protein Ql (U) 30 mg/dl High Negative [facility] Prothrombin Time w/INRon INR Coag (PPP) [Relative time] 1.2 {INR} Normal [facility] Comment on above: Performed By: #### L 500.3400, L100.0100, L503.6005, L501.2450, L500.2500, L300.3900, L300.4310, L501.9100 ####[facility] [address] [place], [address] PT Coag (PPP) [Time] 15.9 s High 11.7-14.9 [facility] Comment on above: Performed By: #### L 500.3400, L100.0100, L503.6005, L501.2450, L500.2500, L300.3900, L300.4310, L501.9100 ####[facility] [address] [place], [place], [phone] Serum or plasma ethanol luciana urement (mass/volume)Ordered By: Narendra Gonzalez on 06-30-2024 Ethanol [Mass/Vol] mg/dL <10.1 [facility] Squamous epithelial cells de tection in urine sediment by light microscopyOrdered By: Narendra Gonzalez on 06-30-2024 Epithelial cells.squamous LM Ql (Urine sed) 0-5 SEEN /hpf 0-5 [facility] Troponin T.cardiac [Mass/vol ume] in Serum or Plasma by High sensitivity methodOrdered By: Conrado Fraser on 06-30-2024 Troponin T.cardiac High sensitivity method [Mass/Vol] 98 ng/L High <22 [facility] Troponin T.cardiac High sensitivity method [Mass/Vol] 93 ng/L High <22 [facility] Urinalysis, Completeon 06-30 EPI,SQUAMOUS 0-5 SEEN Normal 0-5 [facility] Comment on above: Order Comment: CLEAN CATCH Performed By: #### L 400.0001 ####[facility] [address] [place], [address] RBC 0-5 SEEN Normal 0-5 [facility] Comment on above: Order Comment: CLEAN CATCH Performed By: #### L 400.0001 ####[facility] [address] [place], [address] WBC 0-5 SEEN Normal 0-5 [facility] Comment on above: Order Comment: CLEAN CATCH Performed By: #### L 400.0001 ####[facility] [address] [place], [address] BACTERIA 0 SEEN Normal None Seen [facility] Comment on above: Order Comment: CLEAN CATCH Performed By: #### L 400.0001 ####[facility] [address] [place], [address] Mucus Ql (Urine sed) 0 SEEN Normal [facility] Comment on above: Order Comment: CLEAN CATCH Performed By: #### L 400.0001 ####[facility] [address] [place], [address] Urine clarityOrdered By: Abrahan Gonzalez on 06-30-2024 Clarity (U) Sl. Cloudy Clear [facility] Urine color determinationOrd ered By: Narendra Gonzalez on 06-30-2024 Color (U) Yellow Yellow [facility] Urine glucose detectionOrder ed By: Narendra Gonzalez on 06-30-2024 Glucose Ql (U) Normal mg/dl Normal [facility] Urine leukocyte esterase det ection by dipstickOrdered By: Narendra Gonzalez on 06-30-2024 Leukocyte esterase Test strip Ql (U) 25 /ul High Negative [facility] Urine pHOrdered By: Narendra velasquez on 06-30-2024 pH (U) 6.0 [pH] 5.0 - 8.0 [facility] Urine sediment bacteria coun t by microscopy (number/high power field)Ordered By: Narendra Gonzalez on 06-30-2024 Bacteria LM.HPF (Urine sed) [#/Area] 0 /[HPF] None Seen [facility] Urine specific gravity measu rementOrdered By: Narendra Gonzalez on 06-30-2024 Specific gravity (U) [Rel density] 1.020 1.002-1.030 [facility] Urine urobilinogen measureme ntOrdered By: Narendra Gonzalez on 06-30-2024 Urobilinogen Ql (U) Normal mg/dl Normal [facility] Venous Blood Gason Blood Gas Type ROSA Normal [facility] Comment on above: Performed By: #### L 9000.0810 ####[facility] [address] [place], [address] CO2 [Moles/Vol] 29 mmol/L Normal 23-33 [facility] Comment on above: Performed By: #### L 9000.0810 ####[facility] [address] [place], [address] HCO3 (Bld) [Moles/Vol] 28 mmol/L High 22-[address] [facility] Comment on above: Performed By: #### L 9000.0810 ####[facility] [address] [place], [address] O2 Delivery Dev Room Air Normal [facility] Comment on above: Performed By: #### L 9000.0810 ####[facility] [address] [place], [address] SITE Not entered [facility] Comment on above: Performed By: #### L 9000.0810 ####[facility] [address] [place], [address] VBG BE 2 mmol/L Normal -1.0-3.5 [facility] Comment on above: Performed By: #### L 9000.0810 ####[facility] [address] [place], [address] VBG pCO2 51.8 mmHg High 41-51 [facility] Comment on above: Performed By: #### L 9000.0810 ####[facility] [address] [place], [address] VBG pH 7.34 Normal 7.32-7.42 [facility] Comment on above: Performed By: #### L 9000.0810 ####[facility] [address] [place], [address] VBG PO2 24 mmHg Low 25-40 [facility] Comment on above: Performed By: #### L 9000.0810 ####[facility] [address] [place], [address] VBG SO2 37 Low 50-70 [facility] Comment on above: Performed By: #### L 9000.0810 ####[facility] [address] [place], [place], [phone] Venous blood base excess mine surementOrdered By: Conrado Fraser on 06-30-2024 Base excess Calc (BldV) [Moles/Vol] 2 mmol/L -1.0-3.5 [facility] Venous blood bicarbonate mine surementOrdered By: Conrado Fraser on 06-30-2024 HCO3 (Bld) [Moles/Vol] 28 mmol/L High 22-[address] [facility] Venous blood pH measurementO rdered By: Conrado Fraser on 06-30-2024 pH (BldV) 7.34 [pH] 7.32-7.42 [facility] Venous blood partial pressur e of carbon dioxide measurementOrdered By: Conrado Fraser on 06-30-2024 CO2 (BldV) [Partial pressure] 51.8 mm[Hg] High 41-51 [facility] Venous blood partial pressur e of oxygen measurementOrdered By: Conrado Fraser on 06-30-2024 Oxygen (BldV) [Partial pressure] 24 mm[Hg] Low 25-40 [facility] White blood cell countOrdere d By: Narendra Gonzalez on 06-30-2024 White blood cell count 0-5 SEEN /hpf 0-5 [facility] Absolute lymphocyte countOrd ered By: Melonie De La Rosa on 06-28-2024 Lymphocytes Auto (Unsp spec) [#/Vol] 1.11 10*3/uL 0.83-4.51 [facility] Absolute neutrophil countOrd ered By: Melonie De La Rosa on 06-28-2024 Neutrophils (Bld) [#/Vol] 3.5 10*3/uL 2.0-7.7 [facility] Anion gap in Serum or Plasma Ordered By: Melonie De La Rosa on 06-28-2024 Anion gap [Moles/Vol] 7 mmol/L 5-15 [facility] Automated lymphocyte count a s percentage of total leukocytesOrdered By: Melonie De La Rosa on 06-28-2024 Lymphocytes/100 WBC Auto (Unsp spec) 21.1 % 19-41 [facility] BUN/creatinine ratioOrdered By: Melonie De La Rosa on 06-28-2024 Urea nitrogen/Creatinine [Mass ratio] 7.0 mg/mg Low 10-20 [facility] Basic Metabolic Profile (BMP )on 06-28-2024 BUN/CRE 7.0 RATIO Low 10-20 [facility] Comment on above: Performed By: #### L 500.2500, L100.0100 ####[facility] [address] [place], [address] Calcium [Mass/Vol] 7.7 mg/dL Normal 7.6-11.0 [facility] Comment on above: Performed By: #### L 500.2500, L100.0100 ####[facility] [address] [place], [address] Chloride [Moles/Vol] 107 mmol/L Normal 98-108 [facility] Comment on above: Performed By: #### L 500.2500, L100.0100 ####[facility] [address] [place], [address] CO2 [Moles/Vol] 25.1 mmol/L Normal 21.0-32.0 [facility] Comment on above: Performed By: #### L 500.2500, L100.0100 ####[facility] [address] [place], [address] Creatinine [Mass/Vol] 1.11 mg/dL Normal 0.70-1.20 [facility] Comment on above: Performed By: #### L 500.2500, L100.0100 ####[facility] [address] [place], [address] ECRCL 74.04 ml/min Normal 50-250 [facility] Comment on above: Performed By: #### L 500.2500, L100.0100 ####[facility] [address] [place], [address] GAP 7 Normal 5-15 [facility] Comment on above: Performed By: #### L 500.2500, L100.0100 ####[facility] [address] [place], [address] GFR/1.73 sq M.predicted among non-blacks MDRD (S/P/Bld) [Vol rate/Area] 76 mL/min/{1.73_m2} Normal >60 [facility] Comment on above: Result Comment: mL/m in/1.73m2 CKD-EPI Creatinine Equation (2020) Performed By: #### L 500.2500, L100.0100 ####[facility] [address] [place], [address] Glucose [Mass/Vol] 187 mg/dL High 70-99 [facility] Comment on above: Performed By: #### L 500.2500, L100.0100 ####[facility] [address] [place], [address] Potassium [Moles/Vol] 4.1 mmol/L Normal 3.3-5.1 [facility] Comment on above: Result Comment: Hemo lysis present, Results??could be affected.?? Performed By: #### L 500.2500, L100.0100 ####[facility] [address] [place], [address] Sodium [Moles/Vol] 139 mmol/L Normal 133-145 [facility] Comment on above: Performed By: #### L 500.2500, L100.0100 ####[facility] [address] [place], [address] Urea nitrogen [Mass/Vol] 8 mg/dL Normal 4-19 [facility] Comment on above: Performed By: #### L 500.2500, L100.0100 ####[facility] [address] [place], [address] Basophil percentageOrdered B y: Melonie De La Rosa on 06-28-2024 Basophils/100 WBC (Bld) 0.9 % 0-1 [facility] Bedside Glucoseon 06-28-2024 FINGERSTICK GLU 252 mg/dL High 74-106 [facility] Comment on above: Result Comment: DAYANARA GEMENT OF PATIENT CARE PER NURSING PROTOCOL Performed By: #### L 501.080 ####[facility] [address] [place], [address] FINGERSTICK GLU 161 mg/dL High 74-106 [facility] Comment on above: Result Comment: DAYANARA GEMENT OF PATIENT CARE PER NURSING PROTOCOL Performed By: #### L 501.080 ####[facility] [address] [place], [address] CBC W/Diff, Automatedon - Absolute Lymph 1.11 X10 3/uL Normal 0.83-4.51 [facility] Comment on above: Performed By: #### L 500.2500, L100.0100 ####[facility] [address] [place], [address] Absolute Neut 3.5 X10 3/uL Normal 2.0-7.7 [facility] Comment on above: Performed By: #### L 500.2500, L100.0100 ####[facility] [address] [place], [address] Basophils/100 WBC (Bld) 0.9 % Normal 0-1 [facility] Comment on above: Performed By: #### L 500.2500, L100.0100 ####[facility] [address] [place], [address] Eosinophils/100 WBC (Bld) 0.9 % Normal 0-5 [facility] Comment on above: Performed By: #### L 500.2500, L100.0100 ####[facility] [address] [place], [address] Erythrocyte distribution width (RBC) [Ratio] 17.0 % High 11.6-14.6 [facility] Comment on above: Performed By: #### L 500.2500, L100.0100 ####[facility] [address] [place], [address] Hematocrit (Bld) [Volume fraction] 28.9 % Low 40-54 [facility] Comment on above: Performed By: #### L 500.2500, L100.0100 ####[facility] [address] [place], [address] Hemoglobin (Bld) [Mass/Vol] 9.5 g/dL Low 13.0-16.5 [facility] Comment on above: Performed By: #### L 500.2500, L100.0100 ####[facility] [address] [place], [address] IG% 0.400 Normal 0.0-0.9 [facility] Comment on above: Result Comment: IG% - Immature Granulocytes (promyelocytes, myelocytes andmetamyelocytes) > 1% indicates that a LEFT SHIFT is Present. Performed By: #### L 500.2500, L100.0100 ####[facility] [address] [place], [address] Lymphocytes/100 WBC (Bld) 21.1 % Normal 19-41 [facility] Comment on above: Performed By: #### L 500.2500, L100.0100 ####[facility] [address] [place], [address] MCH (RBC) [Entitic mass] 35.7 pg High 27.0-32.0 [facility] Comment on above: Performed By: #### L 500.2500, L100.0100 ####[facility] [address] [place], [address] MCHC (RBC) [Mass/Vol] 32.9 g/dL Normal 32-36 [facility] Comment on above: Performed By: #### L 500.2500, L100.0100 ####[facility] [address] [place], [address] MCV (RBC) [Entitic vol] 108.6 fL High 80-94 [facility] Comment on above: Performed By: #### L 500.2500, L100.0100 ####[facility] [address] [place], [address] Monocytes/100 WBC (Bld) 9.9 % Normal 0-10 [facility] Comment on above: Performed By: #### L 500.2500, L100.0100 ####[facility] [address] [place], [address] Neutrophils/100 WBC (Bld) 66.8 % Normal 47-70 [facility] Comment on above: Performed By: #### L 500.2500, L100.0100 ####[facility] [address] [place], [address] Nucleated RBC (Bld) [#/Vol] 0.4 10*3/uL Normal 0-5 [facility] Comment on above: Performed By: #### L 500.2500, L100.0100 ####[facility] [address] [place], [address] Platelet mean volume (Bld) [Entitic vol] 11.4 fL Normal 6.2-12.0 [facility] Comment on above: Performed By: #### L 500.2500, L100.0100 ####[facility] [address] [place], [address] Platelets (Bld) [#/Vol] 129 10*3/uL Low 150-450 [facility] Comment on above: Performed By: #### L 500.2500, L100.0100 ####[facility] [address] [place], [address] RBC (Bld) [#/Vol] 2.66 10*6/uL Low 4.6-6.[address] [facility] Comment on above: Performed By: #### L 500.2500, L100.0100 ####[facility] [address] [place], [address] RDW SD 68.0 fl High 35.1-43.9 [facility] Comment on above: Performed By: #### L 500.2500, L100.0100 ####[facility] [address] [place], [address] WBC (Bld) [#/Vol] 5.3 10*3/uL Normal 4.4-11.0 [facility] Comment on above: Performed By: #### L 500.2500, L100.0100 ####[facility] [address] [place], [address] Carbon dioxide, total [Moles /volume] in Central venous bloodOrdered By: Melonie De La Rosa on 06-28-2024 CO2 [Moles/Vol] 25.1 mmol/L 21.0-32.0 [facility] Chloride assayOrdered By: Anel De La Rosa on 06-28-2024 Chloride [Moles/Vol] 107 mmol/L 98-108 [facility] Eosinophil percentageOrdered By: Melonie De La Rosa on 06-28-2024 Eosinophils/100 WBC (Bld) 0.9 % 0-5 [facility] Erythrocyte distribution wid th ratioOrdered By: Melonie De La Rosa on 06-28-2024 Erythrocyte distribution width (RBC) [Ratio] 17.0 % High 11.6-14.6 [facility] Erythrocyte distribution wid th standard deviationOrdered By: Melonie De La Rosa on 06-28-2024 Erythrocyte distribution width (RBC) [Ratio] 68.0 fl High 35.1-43.9 [facility] Glomerular filtration rate ( GFR) estimation/1.73 sq m using serum, plasma, or whole bOrdered By: Melonie De La Rosa on 06-28-2024 GFR/1.73 sq M.predicted among non-blacks MDRD (S/P/Bld) [Vol rate/Area] 76 mL/min/{1.73_m2} >60 [facility] Comment on above: mL/min/1.73m2 CKD-EP I Creatinine Equation (2020) [facility] deOrdered By: Melonie De La Rosa on 06-28-2024 Glucose [Mass/Vol] 252 mg/dL High 74-106 [facility] Comment on above: MANAGEMENT OF PATIEN T CARE PER NURSING PROTOCOL Hematocrit Auto (Bld) [Volum e fraction]Ordered By: Melonie De La Rosa on 06-28-2024 Hematocrit (Bld) [Volume fraction] 28.9 % Low 40-54 [facility] Hemoglobin measurementOrdere d By: Melonie De La Rosa on 06-28-2024 Hemoglobin (Bld) [Mass/Vol] 9.5 g/dL Low 13.0-16.5 [facility] Immature granulocytes/100 WB C Auto (Bld)Ordered By: Melonie De La Rosa on 06-28-2024 Immature granulocytes/100 WBC (Bld) 0.400 % 0.0-0.9 [facility] Comment on above: IG% - Immature Granu locytes (promyelocytes, myelocytes and metamyelocytes) > 1% indicates that a LEFT SHIFT is Present. MCV (mean corpuscular volume ) determinationOrdered By: Melonie De La Rosa on 06-28-2024 MCV (RBC) [Entitic vol] 108.6 fL High 80-94 [facility] Mean corpuscular hemoglobin (MCH) determinationOrdered By: Melonie De La Rosa on 06-28-2024 MCH (RBC) [Entitic mass] 35.7 pg High 27.0-32.0 [facility] Mean corpuscular hemoglobin concentration (MCHC) determinationOrdered By: Melonie De La Rosa on 06-28-2024 MCHC (RBC) [Mass/Vol] 32.9 g/dL 32-36 [facility] Mean platelet volume determi nationOrdered By: Melonie De La Rosa on 06-28-2024 Platelet mean volume (Bld) [Entitic vol] 11.4 fL 6.2-12.0 [facility] Monocyte percentageOrdered B y: Melonie De La Rosa on 06-28-2024 Monocytes/100 WBC (Bld) 9.9 % 0-10 [facility] Neutrophil percentageOrdered By: Melonie De La Rosa on 06-28-2024 Neutrophils/100 WBC (Bld) 66.8 % 47-70 [facility] Nucleated red blood cell per centageOrdered By: Melonie De La Rosa on 06-28-2024 Nucleated RBC/100 WBC (Bld) [Ratio] 0.4 % 0-5 [facility] Platelet countOrdered By: Anel De La Rosa on 06-28-2024 Platelets (Bld) [#/Vol] 129 10*3/uL Low 150-450 [facility] Potassium measurement (mass/ volume)Ordered By: Melonie De La Rosa on 06-28-2024 Potassium (Unsp spec) [Mass/Vol] 4.1 mmol/L 3.3-5.1 [facility] [facility] Comment on above: Hemolysis present, R esults could be affected. RBC Auto (Bld) [#/Vol]Ordere d By: Melonie De La Rosa on 06-28-2024 RBC (Bld) [#/Vol] 2.66 10*6/uL Low 4.6-6.[address] [facility] Serum creatinine measurement (mass/volume)Ordered By: Melonie De La Rosa on 06-28-2024 Creatinine [Mass/Vol] 1.11 mg/dL 0.70-1.20 [facility] Serum glucose measurement (m ass/volume)Ordered By: Melonie De La Rosa on 06-28-2024 Glucose [Mass/Vol] 187 mg/dL High 70-99 [facility] Serum or plasma calcium luciana urement (mass/volume)Ordered By: Melonie De La Rosa on 06-28-2024 Calcium [Mass/Vol] 7.7 mg/dL 7.6-11.0 [facility] Serum or plasma urea nitroge n measurement (mass/volume)Ordered By: Melonie De La Rosa on 06-28-2024 Urea nitrogen [Mass/Vol] 8 mg/dL 4-19 [facility] Sodium levelOrdered By: Savannah De La Rosa on 06-28-2024 Sodium [Moles/Vol] 139 mmol/L 133-145 [facility] White blood cell (WBC) count Ordered By: Melonie De La Rosa on 06-28-2024 WBC (Bld) [#/Vol] 5.3 10*3/uL 4.4-11.0 [facility] Activated partial thrombopla stin time (aPTT) in platelet poor plasma by coagulation aOrdered By: Carlos Yanes on 06-27-2024 aPTT Coag (PPP) [Time] 30.2 s 24.1-36.[address] [facility] Basic Metabolic Profile (BMP )on 06-27-2024 BUN/CRE 6.6 RATIO Low 10-20 [facility] Comment on above: Performed By: #### L 501.5200, L500.2500, L501.2300 ####[facility] [address] [place], [place], [address] Calcium [Mass/Vol] 7.3 mg/dL Low 7.6-11.0 [facility] Comment on above: Performed By: #### L 501.5200, L500.2500, L501.2300 ####[facility] [address] [place], [address] Chloride [Moles/Vol] 109 mmol/L High 98-108 [facility] Comment on above: Performed By: #### L 501.5200, L500.2500, L501.2300 ####[facility] [address] [place], [address] CO2 [Moles/Vol] 25.2 mmol/L Normal 21.0-32.0 [facility] Comment on above: Performed By: #### L 501.5200, L500.2500, L501.2300 ####[facility] [address] [place], [address] Creatinine [Mass/Vol] 1.07 mg/dL Normal 0.70-1.20 [facility] Comment on above: Performed By: #### L 501.5200, L500.2500, L501.2300 ####[facility] [address] [place], [address] ECRCL 77.11 ml/min Normal 50-250 [facility] Comment on above: Performed By: #### L 501.5200, L500.2500, L501.2300 ####[facility] [address] [place], [address] GAP 8 Normal 5-15 [facility] Comment on above: Performed By: #### L 501.5200, L500.2500, L501.2300 ####[facility] [address] [place], [address] GFR/1.73 sq M.predicted among non-blacks MDRD (S/P/Bld) [Vol rate/Area] 79 mL/min/{1.73_m2} Normal >60 [facility] Comment on above: Result Comment: mL/m in/1.73m2 CKD-EPI Creatinine Equation (2020) Performed By: #### L 501.5200, L500.2500, L501.2300 ####[facility] [address] [place], [address] Glucose [Mass/Vol] 134 mg/dL High 70-99 [facility] Comment on above: Performed By: #### L 501.5200, L500.2500, L501.2300 ####[facility] [address] [place], [address] Potassium [Moles/Vol] 3.5 mmol/L Normal 3.3-5.1 [facility] Comment on above: Performed By: #### L 501.5200, L500.2500, L501.2300 ####[facility] [address] [place], [address] Sodium [Moles/Vol] 142 mmol/L Normal 133-145 [facility] Comment on above: Performed By: #### L 501.5200, L500.2500, L501.2300 ####[facility] [address] [place], [address] Urea nitrogen [Mass/Vol] 7 mg/dL Normal 4-19 [facility] Comment on above: Performed By: #### L 501.5200, L500.2500, L501.2300 ####[facility] [address] [place], [address] Bedside Glucoseon 06-27-2024 FINGERSTICK GLU 216 mg/dL High 74-106 [facility] Comment on above: Result Comment: DAYANARA GEMENT OF PATIENT CARE PER NURSING PROTOCOL Performed By: #### L 501.080 ####[facility] [address] [place], [address] FINGERSTICK GLU 122 mg/dL High 74-106 [facility] Comment on above: Result Comment: DAYANARA GEMENT OF PATIENT CARE PER NURSING PROTOCOL Performed By: #### L 501.080 ####[facility] [address] [place], [address] FINGERSTICK GLU 111 mg/dL High 74-106 [facility] Comment on above: Result Comment: DAYANARA GEMENT OF PATIENT CARE PER NURSING PROTOCOL Performed By: #### L 501.080 ####[facility] [address] [place], [address] FINGERSTICK GLU 209 mg/dL High 74-106 [facility] Comment on above: Result Comment: DAYANARA GEMENT OF PATIENT CARE PER NURSING PROTOCOL Performed By: #### L 501.080 ####[facility] [address] [place], [address] FINGERSTICK GLU 131 mg/dL High 74-106 [facility] Comment on above: Result Comment: DAYANARA GEMENT OF PATIENT CARE PER NURSING PROTOCOL Performed By: #### L 501.080 ####[facility] [address] [place], [address] Body Fluid Culton 06-27-2024 BFC Culture exhibits no growth. Normal [facility] Comment on above: Performed By: #### M 100.2000, M100.2900, M100.4001 ####[facility] [address] [place], [address] CBC W/Diff, AutomatedOrdered By: Melonie De La Rosa on 06-27-2024 Anisocytosis Ql (Bld) 1+ Normal [facility] Comment on above: Performed By: #### L 100.0100 ####[facility] [address] [place], [address] Cytology, Body Fluid / CSFon 06-27-2024 CYTOLOGY,BF/CSF SEE PATHOLOGY REPORT Normal [facility] Comment on above: Result Comment: Spec imen submitted to Anatomical Pathology Department fortesting. Performed By: #### L 350.1000 ####[facility] [address] [place], [address] EGD Reporton 06-27-2024 EGD Report Normal [facility] Glucose, Body Fluidon 2024 GLUC, BODY FLD 201 mg/dL Normal Not Establ. [facility] Comment on above: Performed By: #### L 503.0100 ####[facility] [address] [place], [address] Gram Stainon 06-27-2024 GS Gram Stain No organisms seen Normal [facility] Comment on above: Performed By: #### M 100.2000, M100.2900, M100.4001 ####[facility] [address] [place], [address] Immunohistochemical Stainson 06-27-2024 Immunohistochemical Stains Normal [facility] Comment on above: Performed By: #### P IMHI ####[facility] [address] [place], [address] International normalized rat io (INR) calculationOrdered By: Carlos Yanes on 06-27-2024 INR Coag (Bld) [Relative time] 1.4 {INR} [facility] MR/POSTOP.ANEon 06-27-2024 MR/POSTOP.ANE Normal [facility] MR/YUKQWJLH4ub 06-27-2024 MR/POSTOPAN2 Normal [facility] Magnesiumon 06-27-2024 Magnesium [Mass/Vol] 1.5 mg/dL Normal 1.5-2.2 [facility] Comment on above: Performed By: #### L 501.5200, L500.2500, L501.2300 ####[facility] [address] [place], [address] Magnesium measurement (mass/ volume)Ordered By: Melonie De La Rosa on 06-27-2024 Magnesium (Unsp spec) [Mass/Vol] 1.5 mg/dL 1.5-2.2 [facility] No Panel InformationOrdered By: Melonie De La Rosa on 06-27-2024 1+ [facility] Partial Thromboplast Timeon 06-27-2024 aPTT Coag (Bld) [Time] 30.2 s Normal 24.1-36.[address] [facility] Comment on above: Performed By: #### L 300.4310, L300.3900 ####[facility] [address] [place], [address] Phosphoruson 06-27-2024 Phosphate [Mass/Vol] 2.7 mg/dL Normal 2.7-4.5 [facility] Comment on above: Performed By: #### L 501.5200, L500.2500, L501.2300 ####[facility] [address] [place], [address] Protein, Body Fluidon 2024 Protein [Mass/Vol] 0.3 g/dL Normal Not Establ. [facility] Comment on above: Performed By: #### L 503.0300 ####[facility] [address] [place], [address] Prothrombin Time w/INRon INR Coag (PPP) [Relative time] 1.4 {INR} Normal [facility] Comment on above: Performed By: #### L 300.4310, L300.3900 ####[facility] [address] [place], [address] Prothrombin timeOrdered By: Carlos Yanes on 06-27-2024 PT Coag (PPP) [Time] 17.4 s High 11.7-14.9 [facility] Comment on above: Performed By: #### L 300.4310, L300.3900 ####[facility] [address] [place], [address] Anaerobic cultureOrdered By: Melonie De La Rosa on 06-26-2024 Bacteria identified Anaer cx Nom (Unsp spec) No growth in 5 days. [facility] Bedside Glucoseon 06-26-2024 FINGERSTICK GLU 201 mg/dL High 74-106 [facility] Comment on above: Result Comment: DAYANARA MORENO OF PATIENT CARE PER NURSING PROTOCOL Performed By: #### L 501.080 ####[facility] [address] [facility] [address] FINGERSTICK GLU 138 mg/dL High [address] [facility] Comment on above: Result Comment: DAYANARA GEMENT OF PATIENT CARE PER NURSING PROTOCOL Performed By: #### L 501.080 ####[facility] [address] [facility] [address] FINGERSTICK GLU 172 mg/dL High 74-106 [facility] Comment on above: Result Comment: DAYANARA GEMENT OF PATIENT CARE PER NURSING PROTOCOL Performed By: #### L 501.080 ####[facility] [address] [facility] [address] FINGERSTICK GLU 197 mg/dL High [facility]106 [facility] Comment on above: Result Comment: DAYANARA GEMENT OF PATIENT CARE PER NURSING PROTOCOL Performed By: #### L 501.080 ####[facility] [address] [place] [address] Bilirubin directOrdered By: Carlos Yanes on 06-26-2024 Bilirubin.direct [Mass/Vol] 0.23 mg/dL 0.00-0.30 [facility] Bilirubin, totalOrdered By: Carlos Yanes on 06-26-2024 Bilirubin [Mass/Vol] 0.42 mg/dL 0.00-1.30 [facility] Body fluid appearance (nomin al result)Ordered By: Melonie De La Rosa on 06-26-2024 Appearance (Body fld) CLEAR [facility] Body fluid color determinati onOrdered By: Melonie De La Rosa on 06-26-2024 Color (Body fld) YELLOW [facility] Body fluid cultureOrdered By : Melonie De La Rosa on 06-26-2024 Microbial culture, body fluid Culture exhibits no growth. [facility] Body fluid leukocytes count (number/volume)Ordered By: Melonie De La Rosa on 06-26-2024 WBC (Body fld) [#/Vol] 0.010 10*3/uL [facility] Body fluid lymphocytes/100 l eukocytesOrdered By: Melonie De La Rosa on 06-26-2024 Lymphocytes/100 WBC (Body fld) 17 % [facility] Body fluid macrophage countO rdered By: Melonie De La Rosa on 06-26-2024 Macrophages (Body fld) [#/Vol] 56 % [facility] Body fluid mesothelial cell percentageOrdered By: Melonie De La Rosa on 06-26-2024 Mesothelial cells/100 WBC (Body fld) 21 % [facility] Body fluid mononuclear cell percentageOrdered By: Melonie De La Rosa on 06-26-2024 Mononuclear cells/100 WBC (Body fld) 90.0 % [facility] Body fluid protein measureme nt (mass/volume)Ordered By: Melonie De La Rosa on 06-26-2024 Protein (Body fld) [Mass/Vol] 0.3 g/dL Not Establ. [facility] Body fluid segmented neutrop hils count (number/volume)Ordered By: Melonie De La Rosa on 06-26-2024 Segmented neutrophils (Body fld) [#/Vol] 6 % [facility] Body fluid total cell countO rdered By: Melonie De La Rosa on 06-26-2024 Cells Counted Total (Body fld) [#] 0.012 10^3/ul [facility] Comment on above: This is the Total Nu mber of Nucleated Cell Types in the Body Fluid. CBC W/Diff, Automatedon 06-08 Absolute Lymph 0.89 X10 3/uL Normal 0.83-4.51 [facility] Comment on above: Performed By: #### L 500.4050, L100.0100, L501.9520, L501.2300, L500.4100 ####[facility] [address] [place], [address] Absolute Neut 3.3 X10 3/uL Normal 2.0-7.7 [facility] Comment on above: Performed By: #### L 500.4050, L100.0100, L501.9520, L501.2300, L500.4100 ####[facility] [address] [place], [address] Basophils/100 WBC (Bld) 0.8 % Normal 0-1 [facility] Comment on above: Performed By: #### L 500.4050, L100.0100, L501.9520, L501.2300, L500.4100 ####[facility] [address] [place], [address] Eosinophils/100 WBC (Bld) 0.4 % Normal 0-5 [facility] Comment on above: Performed By: #### L 500.4050, L100.0100, L501.9520, L501.2300, L500.4100 ####[facility] [address] [place], [address] Erythrocyte distribution width (RBC) [Ratio] 16.3 % High 11.6-14.6 [facility] Comment on above: Performed By: #### L 500.4050, L100.0100, L501.9520, L501.2300, L500.4100 ####[facility] [address] [place], [address] Hematocrit (Bld) [Volume fraction] 27.1 % Low 40-54 [facility] Comment on above: Performed By: #### L 500.4050, L100.0100, L501.9520, L501.2300, L500.4100 ####[facility] [address] [place], [address] Hemoglobin (Bld) [Mass/Vol] 9.3 g/dL Low 13.0-16.5 [facility] Comment on above: Performed By: #### L 500.4050, L100.0100, L501.9520, L501.2300, L500.4100 ####[facility] [address] [place], [address] IG% 0.200 Normal 0.0-0.9 [facility] Comment on above: Result Comment: IG% - Immature Granulocytes (promyelocytes, myelocytes andmetamyelocytes) > 1% indicates that a LEFT SHIFT is Present. Performed By: #### L 500.4050, L100.0100, L501.9520, L501.2300, L500.4100 ####[facility] [address] [place], [address] Lymphocytes/100 WBC (Bld) 18.4 % Low 19-41 [facility] Comment on above: Performed By: #### L 500.4050, L100.0100, L501.9520, L501.2300, L500.4100 ####[facility] [address] [place], [address] MCH (RBC) [Entitic mass] 36.3 pg High 27.0-32.0 [facility] Comment on above: Performed By: #### L 500.4050, L100.0100, L501.9520, L501.2300, L500.4100 ####[facility] [address] [place], [address] MCHC (RBC) [Mass/Vol] 34.3 g/dL Normal 32-36 [facility] Comment on above: Performed By: #### L 500.4050, L100.0100, L501.9520, L501.2300, L500.4100 ####[facility] [address] [place], [address] MCV (RBC) [Entitic vol] 105.9 fL High 80-94 [facility] Comment on above: Performed By: #### L 500.4050, L100.0100, L501.9520, L501.2300, L500.4100 ####[facility] [address] [place], [address] Monocytes/100 WBC (Bld) 11.8 % High 0-10 [facility] Comment on above: Performed By: #### L 500.4050, L100.0100, L501.9520, L501.2300, L500.4100 ####[facility] [address] [place], [address] Neutrophils/100 WBC (Bld) 68.4 % Normal 47-70 [facility] Comment on above: Performed By: #### L 500.4050, L100.0100, L501.9520, L501.2300, L500.4100 ####[facility] [address] [place], [address] Nucleated RBC (Bld) [#/Vol] 0 10*3/uL Normal 0-5 [facility] Comment on above: Performed By: #### L 500.4050, L100.0100, L501.9520, L501.2300, L500.4100 ####[facility] [address] [place], [address] Platelet mean volume (Bld) [Entitic vol] 11.6 fL Normal 6.2-12.0 [facility] Comment on above: Performed By: #### L 500.4050, L100.0100, L501.9520, L501.2300, L500.4100 ####[facility] [address] [place], [address] Platelets (Bld) [#/Vol] 100 10*3/uL Low 150-450 [facility] Comment on above: Performed By: #### L 500.4050, L100.0100, L501.9520, L501.2300, L500.4100 ####[facility] [address] [place], [address] RBC (Bld) [#/Vol] 2.56 10*6/uL Low 4.6-6.[address] [facility] Comment on above: Performed By: #### L 500.4050, L100.0100, L501.9520, L501.2300, L500.4100 ####[facility] [address] [place], [place], [address] RDW SD 63.6 fl High 35.1-43.9 [facility] Comment on above: Performed By: #### L 500.4050, L100.0100, L501.9520, L501.2300, L500.4100 ####[facility] [address] [place], [place], [address] WBC (Bld) [#/Vol] 4.8 10*3/uL Normal 4.4-11.0 [facility] Comment on above: Performed By: #### L 500.4050, L100.0100, L501.9520, L501.2300, L500.4100 ####[facility] [address] [place], [place], [address] CDIFF (PCR)on 06-26-2024 CDIFF Normal [facility] Comment on above: Performed By: #### M 100.0605, M100.6796, M100.637 ####[facility] [address] [place], [place], [address] CNPNon 06-26-2024 CNPN Telephone (AGFAMPLE) ANALILIA MELENDREZ ([id number]) 1960 M Date Time Provider Department 06/26/24 MARIANNA WAGNER During your visit today, we recorded the following information about you: Suzi Haynes MA 06/26/2024 7:16 AM Signed ----- Message from Andrew Horowitz MA sent at 03/28/2024 8:14 AM EST ----- Remind pt. Time to recheck Alc. FLORENTINO Stephens Janie, MA 06/26/2024 7:17 AM Signed Patient is currently admitted, would you like us to put a new reminder in. Please advise. FLORENTINO Jackson Brittny A, APRN.STEPHANIE 06/26/2024 9:57 AM Signed Will address in next OV. Allergies As of Date: 06/26/2024 (No Known Allergies) Date Reviewed: 04/12/2024 Reviewed by: Vandana Edwards - Fully Assessed Reason for Visit: Lab Orders [5038] Prescriptions as of 06/26/2024 - UNIFINE PENTIPS 31 gauge x 16 USE 3 TIMES DAILY - metoprolol tartrate, short acting, (LOPRESSOR) 50 mg tablet TAKE ONE TABLET BY MOUTH TWICE A DAY - pantoprazole DR (PROTONIX) 40 mg tablet TAKE ONE TABLET BY MOUTH TWICE A DAY 3O MINUTES BEFORE MEAL - ramipril (ALTACE) 10 mg capsule TAKE ONE CAPSULE BY MOUTH EVERY DAY - atorvastatin (LIPITOR) 40 mg tablet TAKE ONE TABLET BY MOUTH EVERY DAY - insulin glargine 100 unit/mL (3 mL) Inject 15 Units subcutaneously once daily. - metFORMIN ER (GLUCOPHAGE XR) 500 mg 24 hr tablet Take 2 tablets by mouth daily with breakfast. - FARXIGA 10 mg tablet Take 1 tablet by mouth daily with breakfast. - ferrous sulfate (FEROSUL) 325 mg (65 mg iron) tablet TAKE ONE TABLET BY MOUTH EVERY DAY - Blood-Glucose Sensor (FREESTYLE MANGO 3 SENSOR) daniel Apply new sensor every fourteen (14) days to upper arm. - aofjwa-szcakvqi-ioaifyu (CREON 36) 36,000-114,000- 180,000 unit delayed release capsule Take 2 pills by mouth with first bite of meal and take 1 pill with snacks. Max 10 per day. - Cholecalciferol, Vitamin D3, (VITAMIN D-3) 50 mcg (2,000 unit) cap Take 1 capsule by mouth once daily. - Blood-Glucose Meter,Continuous (FREESTYLE MANGO 3 READER) [facility] Use to check blood sugar at least four (4) times daily. - dicyclomine (BENTYL) 10 mg capsule Take 1 capsule by mouth before meals and at bedtime. - MULTIVITAMIN ORAL Take 1 tablet by mouth once daily. 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*03/09/2016 History of ruptured aneurysm of thoracic aorta *03/09/2016 03/10/2016 Acute headache [R51.9] 03/09/2016 History of alcohol abuse [F10.11] 03/09/2016 History of dissection of thoracic aorta [Z86.79]03/10/2016 Preop testing [Z01.818] 03/16/2016 03/20/2016 Cardiac insufficiency (HCC) [I50.9] 03/19/2016 03/26/2016 Postoperative hypotension [I95.81] 03/19/2016 03/21/2016 Pain, postoperative, acute [G89.18] 03/19/2016 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] 03/20/2016 03/26/2016 Acute respiratory failure with hypoxia (HCC) [J*03/21/2016 03/26/2016 Fluid overload [E87.70] 03/21/2016 03/22/2016 Hypoxemia [R09.02] 03/23/2016 03/26/2016 Discharge planning issues [Z75.8] 03/26/2016 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] Pacemaker [Z95.0] Adrenal nodule (HCC) [E27.9] 08/09/2023 Acute kidney failure, unspecified (HCC) [N17.9] 01/03/2017 Anemia in CKD (chronic kidney disease) [N18.9, *08/09/2023 Aortic aneurysm (HCC) [I71.9] 08/09/2023 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 Chronic pancreatitis (HCC) [K86.1] 08/09/2023 Calcium deficiency [E58] 08/09/2023 Cirrhosis of liver (HCC) [K74.60] 08/09/2023 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*08/09/2023 Cognitive communication deficit [R41.841] 05/21/2023 Depression [F32.A] 08/09/2023 Elevated liver enzymes [R74.8] 08/09/2023 GERD (gastroesophageal reflux disease) [K21.9] 08/09/2023 Hiatal hernia [K44.9] 08/09/2023 History of aortic valve replacement [Z95.2] 08/09/2023 Hepatic steatosis [K76.0] 08/09/2023 History of kidney stones [Z87.442] 08/09/2023 History of pacemaker [Z95.0] 08/09/2023 History of TIA (transient ischemic attack) [Z86*08/09/2023 Hyperlipidemia LDL goal <100 [E78.5] 08/09/2023 Hyperosmolar non-ketotic state in patient with *08/09/2023 Insomnia, unspecified [G47.00] 05/22/2023 Left ventricular hypertrophy [I51.7] 08/09/2023 Nicotine dependence, unspecified, uncomplicated* 7 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 Normal [facility] Calculated very low density lipoprotein (VLDL) cholesterol measurementOrdered By: Conrado Fraser on 06-26-2024 Calculated very low density lipoprotein (VLDL) cholesterol measurement 18 mg/dL 5-40 [facility] Comprehensive Metabolic Prof ilon 06-26-2024 Albumin [Mass/Vol] 2.1 g/dL Low 3.4-4.8 [facility] Comment on above: Performed By: #### L 500.4050, L100.0100, L501.9520, L501.2300, L500.4100 ####[facility] [address] [place], [address] Albumin/Globulin [Mass ratio] 1.0 {ratio} Normal 0.9-2.4 [facility] Comment on above: Performed By: #### L 500.4050, L100.0100, L501.9520, L501.2300, L500.4100 ####[facility] [address] [place], [address] ALK PHOS 102 U/L Normal 40-129 [facility] Comment on above: Performed By: #### L 500.4050, L100.0100, L501.9520, L501.2300, L500.4100 ####[facility] [address] [place], [address] ALT [Catalytic activity/Vol] 26 U/L Normal <=46 [facility] Comment on above: Performed By: #### L 500.4050, L100.0100, L501.9520, L501.2300, L500.4100 ####[facility] [address] [place], [address] AST [Catalytic activity/Vol] 49 U/L High <=37 [facility] Comment on above: Performed By: #### L 500.4050, L100.0100, L501.9520, L501.2300, L500.4100 ####[facility] [address] [place], [address] Bilirubin [Mass/Vol] 0.42 mg/dL Normal 0.00-1.30 [facility] Comment on above: Performed By: #### L 500.4050, L100.0100, L501.9520, L501.2300, L500.4100 ####[facility] [address] [place], [address] BUN/CRE 6.5 RATIO Low 10-20 [facility] Comment on above: Performed By: #### L 500.4050, L100.0100, L501.9520, L501.2300, L500.4100 ####[facility] [address] [place], [address] Calcium [Mass/Vol] 7.1 mg/dL Low 7.6-11.0 [facility] Comment on above: Performed By: #### L 500.4050, L100.0100, L501.9520, L501.2300, L500.4100 ####[facility] [address] [place], [address] Chloride [Moles/Vol] 107 mmol/L Normal 98-108 [facility] Comment on above: Performed By: #### L 500.4050, L100.0100, L501.9520, L501.2300, L500.4100 ####[facility] [address] [place], [address] CO2 [Moles/Vol] 24.9 mmol/L Normal 21.0-32.0 [facility] Comment on above: Performed By: #### L 500.4050, L100.0100, L501.9520, L501.2300, L500.4100 ####[facility] [address] [place], [address] Creatinine [Mass/Vol] 0.97 mg/dL Normal 0.70-1.20 [facility] Comment on above: Performed By: #### L 500.4050, L100.0100, L501.9520, L501.2300, L500.4100 ####[facility] [address] [place], [address] ECRCL 84.27 ml/min Normal 50-250 [facility] Comment on above: Performed By: #### L 500.4050, L100.0100, L501.9520, L501.2300, L500.4100 ####[facility] [address] [place], [address] GAP 10 Normal 5-15 [facility] Comment on above: Performed By: #### L 500.4050, L100.0100, L501.9520, L501.2300, L500.4100 ####[facility] [address] [place], [address] GFR/1.73 sq M.predicted among non-blacks MDRD (S/P/Bld) [Vol rate/Area] 88 mL/min/{1.73_m2} Normal >60 [facility] Comment on above: Result Comment: mL/m in/1.73m2 CKD-EPI Creatinine Equation (2020) Performed By: #### L 500.4050, L100.0100, L501.9520, L501.2300, L500.4100 ####[facility] [address] [place], [address] Globulin (S) [Mass/Vol] 2.1 g/dL Low 2.2-4.2 [facility] Comment on above: Performed By: #### L 500.4050, L100.0100, L501.9520, L501.2300, L500.4100 ####[facility] [address] [place], [address] Glucose [Mass/Vol] 180 mg/dL High 70-99 [facility] Comment on above: Performed By: #### L 500.4050, L100.0100, L501.9520, L501.2300, L500.4100 ####[facility] [address] [place], [address] Potassium [Moles/Vol] 2.7 mmol/L Invalid Interpretation Code 3.3-5.1 [facility] Comment on above: Result Comment: Crit ical Result(s) Called at 0735: by: ESTEFANY GOLDMAN. ??Results read back by same. Performed By: #### L 500.4050, L100.0100, L501.9520, L501.2300, L500.4100 ####[facility] [address] [place], [address] Sodium [Moles/Vol] 142 mmol/L Normal 133-145 [facility] Comment on above: Performed By: #### L 500.4050, L100.0100, L501.9520, L501.2300, L500.4100 ####[facility] [address] [place], [address] T PROT 4.3 g/dL Low 5.9-8.4 [facility] Comment on above: Performed By: #### L 500.4050, L100.0100, L501.9520, L501.2300, L500.4100 ####[facility] [address] [place], [address] Urea nitrogen [Mass/Vol] 6 mg/dL Normal 4-19 [facility] Comment on above: Performed By: #### L 500.4050, L100.0100, L501.9520, L501.2300, L500.4100 ####[facility] [address] [place], [address] Cytology report of Body flui d Cyto stainOrdered By: Melonie De La Rosa on 06-26-2024 Cytology report Cyto stain Doc (Body fld) SEE PATHOLOGY REPORT [facility] ENTERIC PATHOGEN PANEL STOOL on 06-26-2024 EP PANEL Normal [facility] Comment on above: Performed By: #### M 100.0605, M100.6796, M100.637 ####[facility] [address] [place], [address] Electrocardiogram reportOrde red By: Trung Bob on 06-26-2024 EKG study [facility] [address] [place] [address] 12 Lead EKG 05/18/25 1935 MR#: [id number] Acct: [id number] Name: ANALILIA MELENDREZ Rep #:[id number] : 1960 63 From: Trung Bob MD Attending Dr: DO Yesi Looney tatus: ADM IN Ordering Dr: Rolan Romero ate: 06/25/24 Location: [facility] Sex: M C Admitted: 06/25/24 Test Reason : DYSRHYTHMIA Blood Pressure : */* mmHG Vent. Rate : 103 BPM Atrial Rate : 104 BPM P-R Int : 184 ms QRS Dur : 140 ms QT Int : 398 ms P-R-T Axes : * -54 90 degrees QTcB Int : 521 ms Sinus tachycardia with Premature atrial complexes Right bundle branch block Left anterior fascicular block Bifascicular block Abnormal ECG Confirmed by TRUNG BOB MD ([id number]), health editor CARLOS ROBLES ([id number]) on 06/26/2024 9:28:17 AM Referred By: Rolan Romero Confirmed By: TRUNG BOB MD 06/26/24 0928 Date _ Trung Bob MD CC: VEHICLE MODIFICATION TECHNICIANAstrid Wagner; Dr. Rolan Romero DO; Dr. Melonie De La Rosa DO ~ Signed [facility] Work Phone: Gram stainOrdered By: Palak De La Rosa on 06-26-2024 Microscopic observation Gram stain Nom (Unsp spec) [facility] Hemoglobin A1con 06-26-2024 HbA1c (Bld) [Mass fraction] 6.6 % High <=5.6 [facility] Comment on above: Result Comment: Norm al < 5.7 % Prediabetic 5.7 - 6.4 % Diabetic >or= 6.5 % Please note range changes. Performed By: #### L 501.9985, L503.6005, L505.5000, M600.5000, L501.5200 ####[facility] [address] [place], [address] LDL calc ser/plasOrdered By: Conrado Fraser on 06-26-2024 Cholesterol in LDL [Mass/Vol] 24 mg/dL Normal [facility] Comment on above: Wtosorbdqq=718-319 m g/dL & Higher Rvfn=105 mg/dL or greater Result Comment: Bord dmxdki=749-277 mg/dL Higher Zlct=417 mg/dL or greater Performed By: #### L 500.4050, L100.0100, L501.9520, L501.2300, L500.4100 ####[facility] [address] [place], [address] Laboratory - Chemistry and C hemistry - challengeOrdered By: Carlos Yanes on 06-26-2024 AST [Catalytic activity/Vol] 49 U/L High <38 [facility] Lactic Acidon 06-26-2024 Lactate [Moles/Vol] 3.1 mmol/L Invalid Interpretation Code 0.0-2.0 [facility] Comment on above: Result Comment: Crit ical Result(s) Called at 0745: by: ESTEFANY GOLDMAN. ??Results read back by same. Performed By: #### L 503.6005 ####[facility] [address] [place], [place], [address] Lactate [Moles/Vol] 4.7 mmol/L Invalid Interpretation Code 0.0-2.0 [facility] Comment on above: Order Comment: Y Result Comment: Crit ical Result(s) Called at: 06/26/2024-02:50 by: Khushi Mckeon.??Results read back by same. Performed By: #### L 501.9985, L503.6005, L505.5000, M600.5000, L501.5200 ####[facility] [address] [place], [place], [address] Lactic acid measurementOrder ed By: Conrado Fraser on 06-26-2024 Lactate [Moles/Vol] 3.1 mmol/L High 0.0-2.[address] [facility] Comment on above: Critical Result(s) C alled at 0745: by: ESTEFANY WHITTEN TO [facility]. Results read back by same. Lipid Profileon 06-26-2024 CHOL:HDL 2.29 Normal [facility] Comment on above: Performed By: #### L 500.4050, L100.0100, L501.9520, L501.2300, L500.4100 ####[facility] [address] [place], [address] Cholesterol in VLDL [Mass/Vol] 18 mg/dL Normal 5-40 [facility] Comment on above: Performed By: #### L 500.4050, L100.0100, L501.9520, L501.2300, L500.4100 ####[facility] [address] [place], [address] Liver Profileon 06-26-2024 Albumin [Mass/Vol] 2.0 g/dL Low 3.4-4.8 [facility] Comment on above: Performed By: #### L 500.3400 ####[facility] [address] [place], [address] ALK PHOS 99 U/L Normal 40-129 [facility] Comment on above: Performed By: #### L 500.3400 ####[facility] [address] [place], [address] ALT [Catalytic activity/Vol] 27 U/L Normal <=46 [facility] Comment on above: Performed By: #### L 500.3400 ####[facility] [address] [place], [address] AST [Catalytic activity/Vol] 49 U/L High <=37 [facility] Comment on above: Performed By: #### L 500.3400 ####[facility] [address] [place], [address] Bilirubin [Mass/Vol] 0.42 mg/dL Normal 0.00-1.30 [facility] Comment on above: Performed By: #### L 500.3400 ####[facility] [address] [place], [address] Bilirubin.direct [Mass/Vol] 0.23 mg/dL Normal 0.00-0.30 [facility] Comment on above: Performed By: #### L 500.3400 ####[facility] [address] [place], [address] Globulin (S) [Mass/Vol] 2.2 g/dL Normal 2.2-4.2 [facility] Comment on above: Performed By: #### L 500.3400 ####[facility] [address] [place], [address] T PROT 4.2 g/dL Low 5.9-8.4 [facility] Comment on above: Performed By: #### L 500.3400 ####[facility] [address] [place], [address] MR/CON.PCM.GIon 06-26-2024 MR/CON.PCM.GI Normal [facility] Magnesiumon 06-26-2024 Magnesium [Mass/Vol] 1.8 mg/dL Normal 1.5-2.2 [facility] Comment on above: Performed By: #### L 501.9985, L503.6005, L505.5000, M600.5000, L501.5200 ####[facility] [address] [place], [address] No Panel InformationOrdered By: Melonie De La Rosa on 06-26-2024 Body Fluid Comment 2 SEE COMMENT [facility] Comment on above: .INTERPRETATION OF R ESULTS: Differentiation of transudate and exudate fluid: TRANSUDATE EXUDATE Color- Clear,straw colored Clear,turbid,bloody,purulent RBCs- Usually none to few Often present in high numbers WBCs- Usually none to few Often present in high numbers DIFF Few lymphocytes or Lymphocytes, neutrophils, andCount- mesothelial cells. polymorphonuclear cells . Body Fluid RBC 35 /mm3 [facility] 35 /mm3 [facility] SEE COMMENT [facility] No Panel InformationOrdered By: Carlos Yanes on 06-26-2024 49 U/L High <38 [facility] Paracentesis with USon 06-26 Paracentesis with US Normal [facility] Pathologist interpretation o f Body fluid testsOrdered By: Melonie De La Rosa on 06-26-2024 Pathologist interpretation (Body fld) [Interp] May follow [facility] Pathologist interpretation (Body fld) [Interp] Reviewed [facility] Phosphoruson 06-26-2024 Phosphate [Mass/Vol] 2.3 mg/dL Low 2.7-4.5 [facility] Comment on above: Performed By: #### L 500.4050, L100.0100, L501.9520, L501.2300, L500.4100 ####[facility] [address] [place], [place], [id number] Screening total cholesterol/ high density lipoprotein (HDL) cholesterol ratioOrdered By: Conrado Fraser on 06-26-2024 Cholesterol.total/Livia sterol in HDL [Mass ratio] 2.29 {ratio} [facility] Serum globulin measurementOr dered By: Carlos Yanes on 06-26-2024 Globulin (S) [Mass/Vol] 2.2 g/dL 2.2-4.2 [facility] Serum or plasma alanine padilla otransferase (ALT) measurementOrdered By: Carlos Yanes on 06-26-2024 ALT [Catalytic activity/Vol] 27 U/L <47 [facility] Serum or plasma albumin luciana urement (mass/volume)Ordered By: Carlos Yanes on 06-26-2024 Albumin [Mass/Vol] 2.0 g/dL Low 3.4-4.8 [facility] Serum or plasma albumin/glob ulin mass ratioOrdered By: Conrado Fraser on 06-26-2024 Albumin/Globulin [Mass ratio] 1.0 {ratio} 0.9-2.4 [facility] Serum or plasma alkaline nolan sphatase measurementOrdered By: Carlos Yanes on 06-26-2024 ALP [Catalytic activity/Vol] 99 U/L 40-129 [facility] Serum or plasma cholesterol in HDL measurement (mass/volume)Ordered By: Conrado Fraser on 06-26-2024 Cholesterol in HDL [Mass/Vol] 32 mg/dL Low [facility] Comment on above: National Cholesterol Education Program (NCEP) guidelines:<40 mg/dL: Low HDL-cholesterol (major risk factor for CHD)>= 60 mg/dL: High HDL-cholesterol (negative risk factor for CHD)HDL-cholesterol is affected by a number of factors, e.g. smoking, exercise, hormones, sex and age. Result Comment: Lisa onal Cholesterol Education Program (NCEP) guidelines:<40 mg/dL: Low HDL-cholesterol (major risk factor for CHD)>= 60 mg/dL: High HDL-cholesterol (negative risk factor forCHD)HDL-cholesterol is affected by a number of factors, e.g.smoking, exercise, hormones, sex and age. Performed By: #### L 500.4050, L100.0100, L501.9520, L501.2300, L500.4100 ####[facility] [address] [place], [address] Serum or plasma cholesterol measurement (mass/volume)Ordered By: Conrado Fraser on 06-26-2024 Cholesterol [Mass/Vol] 74 mg/dL Normal <=[address] [facility] Comment on above: Cholesterol level, D esirable <200 mg/dLBorderline high cholesterol 200-239 mg/dLHigh cholesterol >=240 mg/dLRecommendations of the NCEP Adult Treatment Panel for the following risk-cutoff thresholds for the [place] population. Result Comment: Chol esterol level, Desirable <200 mg/dLBorderline high cholesterol 200-239 mg/dLHigh cholesterol >=240 mg/dLRecommendations of the NCEP Adult Treatment Panel for thefollowing risk-cutoff thresholds for the [place] American[place]. Performed By: #### L 500.4050, L100.0100, L501.9520, L501.2300, L500.4100 ####[facility] [address] [place], [address] Special Stain Group IIon Special Stain Group II Normal [facility] Comment on above: Performed By: #### P SSII ####[facility] [address] [place], [address] Specimen source identificati on of body fluidOrdered By: Melonie De La Rosa on 06-26-2024 Specimen source Nom (Body fld) PARACENTESIS [facility] Stool Lactoferrin/WBCon 06-08 WBCST Is the patient receiving laxatives? N Normal Reference Range = Negative Fecal WBC Lactoferrin Negative: No Fecal WBC Lactoferrin present Normal [facility] Comment on above: Performed By: #### M 100.0605, M100.6796, M100.637 ####[facility] [address] [place], [place], [id number] TSH DL <= 0.005 mIU/L QnOrde red By: Conrado Farser on 06-26-2024 TSH Qn 1.740 uIU/mL 0.300-4.200 [facility] Thyroid Stim Hormone (TSH)on 06-26-2024 TSH 1.740 uIU/mL Normal 0.300-4.200 [facility] Comment on above: Performed By: #### L 500.4050, L100.0100, L501.9520, L501.2300, L500.4100 ####[facility] [address] [place], [place], [address] Total proteinOrdered By: Carlos Yanes on 06-26-2024 Protein [Mass/Vol] 4.2 g/dL Low 5.9-8.4 [facility] Triglycerides measurementOrd ered By: Conrado Fraser on 06-26-2024 Triglyceride [Mass/Vol] 89 mg/dL Normal [facility] Comment on above: The drugs N-Acetylcy steine and Metamizole may falsely depress this assay. Normal range: <150 mg/dLBorderline High: 150-199 mg/dLHigh: 200-499 mg/dLVery High: >500 mg/dL Result Comment: The drugs N-Acetylcysteine and Metamizole may falselydepress this assay.Normal range: <150 mg/dLBorderline High: 150-199 mg/dLHigh: 200-499 mg/dLVery High: >500 mg/dL Performed By: #### L 500.4050, L100.0100, L501.9520, L501.2300, L500.4100 ####[facility] [address] [place], [place], [phone] Urine Drug Screen (VISTA)on 06-26-2024 AMPHETAMINES Negative Normal <1000 ng/mL [facility] Comment on above: Performed By: #### L 501.9985, L503.6005, L505.5000, M600.5000, L501.5200 ####[facility] [address] [place], [address] BARBITIURATES Negative Normal < 200 ng/mL [facility] Comment on above: Performed By: #### L 501.9985, L503.6005, L505.5000, M600.5000, L501.5200 ####[facility] [address] [place], [place], [phone] BENZODIAZIPINE Negative Normal < 200 ng/mL [facility] Comment on above: Performed By: #### L 501.9985, L503.6005, L505.5000, M600.5000, L501.5200 ####[facility] [address] [place], [address] BUP Ur Drug Scr Negative Normal < 200 ng/mL [facility] Comment on above: Performed By: #### L 501.9985, L503.6005, L505.5000, M600.5000, L501.5200 ####[facility] [address] [place], [place], [phone] COCAINE Negative Normal < 300 ng/mL [facility] Comment on above: Performed By: #### L 501.9985, L503.6005, L505.5000, M600.5000, L501.5200 ####[facility] [address] [place] [address] Fentanyl Negative Normal [facility] Comment on above: Performed By: #### L 501.9985, L503.6005, L505.5000, M600.5000, L501.5200 ####[facility] [address] [place] [address] METHADONE Negative Normal < 300 ng/mL [facility] Comment on above: Performed By: #### L 501.9985, L503.6005, L505.5000, M600.5000, L501.5200 ####[facility] [address] [place], [place], [phone] OPIATES Negative Normal < 300 ng/mL [facility] Comment on above: Performed By: #### L 501.9985, L503.6005, L505.5000, M600.5000, L501.5200 ####[facility] [address] [place] [address] OXYCODONE Negative Normal < 100 ng/mL [facility] Comment on above: Performed By: #### L 501.9985, L503.6005, L505.5000, M600.5000, L501.5200 ####[facility] [address] [place] [address] PCP Negative Normal < 25 ng/mL [facility] Comment on above: Performed By: #### L 501.9985, L503.6005, L505.5000, M600.5000, L501.5200 ####[facility] [address] [place], [address] THC Negative Normal < 50 ng/mL [facility] Comment on above: Performed By: #### L 501.9985, L503.6005, L505.5000, M600.5000, L501.5200 ####[facility] [address] [place], [address] 12 Lead EKGon 06-25-2024 12 Lead EKG Normal [facility] Abdomen/Pelvis W IV Cont ONL Yon 06-25-2024 Abdomen/Pelvis W IV Cont ONLY Normal [facility] Absolute lymphocyte countOrd ered By: Rolan Romero on 06-25-2024 Lymphocytes Auto (Unsp spec) [#/Vol] 1.05 10*3/uL 0.83-4.51 [facility] Absolute neutrophil countOrd ered By: Rolan Romero on 06-25-2024 Neutrophils (Bld) [#/Vol] 3.1 10*3/uL 2.0-7.7 [facility] Alcohol, Blood (Medical)-Ser umon 06-25-2024 SERUM ETOH < 10.1 Normal <=10.0 [facility] Comment on above: Result Comment: This test is for medical purposes only. The legaldefinition of intoxication varies according to local law. Performed By: #### L 501.9100 ####[facility] [address] [place], [place], [phone] Amphetamine detection with 1 000 ng/mL as cutoffOrdered By: Conrado Fraser on 06-25-2024 Amphetamines Screen method >1000 ng/mL Ql (U) Negative < 200 ng/mL [facility] Anion gap in Serum or Plasma Ordered By: Rolan Romero on 06-25-2024 Anion gap [Moles/Vol] 16 mmol/L High 5-15 [facility] Automated lymphocyte count a s percentage of total leukocytesOrdered By: Rolan Romero on 06-25-2024 Lymphocytes/100 WBC Auto (Unsp spec) 22.1 % 19-41 [facility] BUN/creatinine ratioOrdered By: Rolanagustin Romero on 06-25-2024 Urea nitrogen/Creatinine [Mass ratio] 6.5 mg/mg Low 10-20 [facility] Basophil percentageOrdered B y: Rolan Romero on 06-25-2024 Basophils/100 WBC (Bld) 0.6 % 0-1 [facility] Bedside Glucoseon 06-25-2024 FINGERSTICK GLU 277 mg/dL High 74-106 [facility] Comment on above: Result Comment: DAYANARA GEMENT OF PATIENT CARE PER NURSING PROTOCOL Performed By: #### L 501.080 ####[facility] [address] [place], [address] FINGERSTICK GLU 348 mg/dL High 74-106 [facility] Comment on above: Result Comment: DAYANARA GEMENT OF PATIENT CARE PER NURSING PROTOCOL Performed By: #### L 501.080 ####[facility] [address] [place], [address] Beta-Hydroxbytyrateon 2024 BETA-HYDROXYBUT 0.1 mmol/L Normal 0.0-0.3 [facility] Comment on above: Performed By: #### L 501.5600, L501.6901, L501.5200 ####[facility] [address] [place], [address] Beta-hydroxybutyrateOrdered By: Rolanagustin Romero on 06-25-2024 Beta hydroxybutyrate [Mass/Vol] 0.1 mmol/L 0.0-0.3 [facility] Bilirubin Test strip Ql (U)O rdered By: Rolan Romero on 06-25-2024 Bilirubin Ql (U) Negative Negative [facility] Bilirubin, totalOrdered By: Rolan Romero on 06-25-2024 Bilirubin [Mass/Vol] 0.46 mg/dL 0.00-1.30 [facility] CBC W/Diff, Automatedon - Absolute Lymph 1.05 X10 3/uL Normal 0.83-4.51 [facility] Comment on above: Performed By: #### L 100.0100 ####[facility] [address] [place], [address] Absolute Neut 3.1 X10 3/uL Normal 2.0-7.7 [facility] Comment on above: Performed By: #### L 100.0100 ####[facility] [address] [place], [address] Basophils/100 WBC (Bld) 0.6 % Normal 0-1 [facility] Comment on above: Performed By: #### L 100.0100 ####[facility] [address] [place], [address] Eosinophils/100 WBC (Bld) 0.2 % Normal 0-5 [facility] Comment on above: Performed By: #### L 100.0100 ####[facility] [address] [place], [address] Erythrocyte distribution width (RBC) [Ratio] 16.2 % High 11.6-14.6 [facility] Comment on above: Performed By: #### L 100.0100 ####[facility] [address] [place], [address] Hematocrit (Bld) [Volume fraction] 29.8 % Low 40-54 [facility] Comment on above: Performed By: #### L 100.0100 ####[facility] [address] [place], [address] Hemoglobin (Bld) [Mass/Vol] 10.1 g/dL Low 13.0-16.5 [facility] Comment on above: Performed By: #### L 100.0100 ####[facility] [address] [place], [address] IG% 0.200 Normal 0.0-0.9 [facility] Comment on above: Result Comment: IG% - Immature Granulocytes (promyelocytes, myelocytes andmetamyelocytes) > 1% indicates that a LEFT SHIFT is Present. Performed By: #### L 100.0100 ####[facility] [address] [place], [address] Lymphocytes/100 WBC (Bld) 22.1 % Normal 19-41 [facility] Comment on above: Performed By: #### L 100.0100 ####[facility] [address] [place], [address] MCH (RBC) [Entitic mass] 36.1 pg High 27.0-32.0 [facility] Comment on above: Performed By: #### L 100.0100 ####[facility] [address] [place], [address] MCHC (RBC) [Mass/Vol] 33.9 g/dL Normal 32-36 [facility] Comment on above: Performed By: #### L 100.0100 ####[facility] [address] [place], [address] MCV (RBC) [Entitic vol] 106.4 fL High 80-94 [facility] Comment on above: Performed By: #### L 100.0100 ####[facility] [address] [place], [address] Monocytes/100 WBC (Bld) 11.6 % High 0-10 [facility] Comment on above: Performed By: #### L 100.0100 ####[facility] [address] [place], [address] Neutrophils/100 WBC (Bld) 65.3 % Normal 47-70 [facility] Comment on above: Performed By: #### L 100.0100 ####[facility] [address] [place], [address] Nucleated RBC (Bld) [#/Vol] 0 10*3/uL Normal 0-5 [facility] Comment on above: Performed By: #### L 100.0100 ####[facility] [address] [place], [address] Platelet mean volume (Bld) [Entitic vol] 11.8 fL Normal 6.2-12.0 [facility] Comment on above: Performed By: #### L 100.0100 ####[facility] [address] [place], [address] Platelets (Bld) [#/Vol] 124 10*3/uL Low 150-450 [facility] Comment on above: Performed By: #### L 100.0100 ####[facility] [address] [place], [address] RBC (Bld) [#/Vol] 2.80 10*6/uL Low 4.6-6.[address] [facility] Comment on above: Performed By: #### L 100.0100 ####[facility] [address] [place], [address] RDW SD 63.9 fl High 35.1-43.9 [facility] Comment on above: Performed By: #### L 100.0100 ####[facility] [address] [place], [address] WBC (Bld) [#/Vol] 4.8 10*3/uL Normal 4.4-11.0 [facility] Comment on above: Performed By: #### L 100.0100 ####[facility] [address] [place], [address] Absolute Neut Normal 2.0-7.7 [facility] Comment on above: Result Comment: nigel ballard, spoke with ayden Performed By: #### L 500.4050, L503.6005, L100.0100, L501.2450 ####[facility] [address] [place], [address] HCT Normal 40-54 [facility] Comment on above: Result Comment: clot nellie, spoke with ayden Performed By: #### L 500.4050, L503.6005, L100.0100, L501.2450 ####[facility] [address] [place], [address] HGB Normal 13.0-16.5 [facility] Comment on above: Result Comment: clot nellie, spoke with ayden Performed By: #### L 500.4050, L503.6005, L100.0100, L501.2450 ####[facility] [address] [place], [address] MCH Normal 27.0-32.0 [facility] Comment on above: Result Comment: clot nellie, spoke with ayden Performed By: #### L 500.4050, L503.6005, L100.0100, L501.2450 ####[facility] [address] [place], [address] MCHC Normal 32-36 [facility] Comment on above: Result Comment: clot nellie, spoke with ayden Performed By: #### L 500.4050, L503.6005, L100.0100, L501.2450 ####[facility] [address] [place], [address] MCV Normal 80-94 [facility] Comment on above: Result Comment: clot nellie, spoke with ayden Performed By: #### L 500.4050, L503.6005, L100.0100, L501.2450 ####[facility] [address] [place], [address] NEUT% Normal 47-70 [facility] Comment on above: Result Comment: clot nellie, spoke with ayden Performed By: #### L 500.4050, L503.6005, L100.0100, L501.2450 ####[facility] [address] [place], [address] PLT Normal 150-450 [facility] Comment on above: Result Comment: clot nellie, spoke with ayden Performed By: #### L 500.4050, L503.6005, L100.0100, L501.2450 ####[facility] [address] [place], [address] RBC Normal 4.6-6.2 [facility] Comment on above: Result Comment: clot nellie, spoke with ayden Performed By: #### L 500.4050, L503.6005, L100.0100, L501.2450 ####[facility] [address] [place], [address] RDW CV Normal 11.6-14.6 [facility] Comment on above: Result Comment: clot nellie, spoke with ayden Performed By: #### L 500.4050, L503.6005, L100.0100, L501.2450 ####[facility] [address] [place], [address] RDW SD Normal 35.1-43.9 [facility] Comment on above: Result Comment: clot nellie, spoke with ayden Performed By: #### L 500.4050, L503.6005, L100.0100, L501.2450 ####[facility] [address] [place], [address] WBC Normal 4.4-11.0 [facility] Comment on above: Result Comment: clot nellie, spoke with ayden Performed By: #### L 500.4050, L503.6005, L100.0100, L501.2450 ####[facility] [address] [place], [address] CO2 (BldV) [Moles/Vol]Ordere d By: Rolan Romero on 06-25-2024 CO2 [Moles/Vol] 30 mmol/L 23-33 [facility] Carbon dioxide, total [Moles /volume] in Central venous bloodOrdered By: Rolan Romero on 06-25-2024 CO2 [Moles/Vol] 24.2 mmol/L 21.0-32.0 [facility] Chloride assayOrdered By: Tray Romero on 06-25-2024 Chloride [Moles/Vol] 95 mmol/L Low 98-108 [facility] Clostridium difficile detect ion by polymerase chain reactionOrdered By: Conrado Fraser on 06-25-2024 C. difficile DNA GENEVA+probe Ql (Unsp spec) [facility] Comprehensive Metabolic Prof ilon 06-25-2024 Albumin [Mass/Vol] 2.5 g/dL Low 3.4-4.8 [facility] Comment on above: Order Comment: RED W. PREVIOUS SPECIMEN REJECTED DUE TOHEMOLYSIS. 06/25/241755 Jamari Aguayo. Performed By: #### L 500.4050, L501.2450 ####[facility] [address] [place], [address] Albumin/Globulin [Mass ratio] 1.0 {ratio} Normal 0.9-2.4 [facility] Comment on above: Order Comment: RED W. PREVIOUS SPECIMEN REJECTED DUE TOHEMOLYSIS. 06/25/241755 Jamari Aguayo. Performed By: #### L 500.4050, L501.2450 ####[facility] [address] [place], [address] ALK PHOS 125 U/L Normal 40-129 [facility] Comment on above: Order Comment: RED W. PREVIOUS SPECIMEN REJECTED DUE TOHEMOLYSIS. 06/25/241755 Jamari Aguayo. Performed By: #### L 500.4050, L501.2450 ####[facility] [address] [place], [address] ALT [Catalytic activity/Vol] 32 U/L Normal <=46 [facility] Comment on above: Order Comment: REDRA W. PREVIOUS SPECIMEN REJECTED DUE TOHEMOLYSIS. 06/25/241755 Jamari Aguayo. Performed By: #### L 500.4050, L501.2450 ####[facility] [address] [place], [address] AST [Catalytic activity/Vol] 62 U/L High <=37 [facility] Comment on above: Order Comment: REDRA W. PREVIOUS SPECIMEN REJECTED DUE TOHEMOLYSIS. 06/25/241755 Jamari Aguayo. Performed By: #### L 500.4050, L501.2450 ####[facility] [address] [place], [address] Bilirubin [Mass/Vol] 0.46 mg/dL Normal 0.00-1.30 [facility] Comment on above: Order Comment: REDRA W. PREVIOUS SPECIMEN REJECTED DUE TOHEMOLYSIS. 06/25/241755 Jamari Aguayo. Performed By: #### L 500.4050, L501.2450 ####[facility] [address] [place], [address] BUN/CRE 6.5 RATIO Low 10-20 [facility] Comment on above: Order Comment: REDRA W. PREVIOUS SPECIMEN REJECTED DUE TOHEMOLYSIS. 06/25/241755 Jamari Aguayo. Performed By: #### L 500.4050, L501.2450 ####[facility] [address] [place], [address] Calcium [Mass/Vol] 7.7 mg/dL Normal 7.6-11.0 [facility] Comment on above: Order Comment: REDRA W. PREVIOUS SPECIMEN REJECTED DUE TOHEMOLYSIS. 06/25/241755 Jamari Aguayo. Performed By: #### L 500.4050, L501.2450 ####[facility] [address] [place], [address] Chloride [Moles/Vol] 95 mmol/L Low 98-108 [facility] Comment on above: Order Comment: REDRA W. PREVIOUS SPECIMEN REJECTED DUE TOHEMOLYSIS. 06/25/241755 Jamari Aguayo. Performed By: #### L 500.4050, L501.2450 ####[facility] [address] [place], [address] CO2 [Moles/Vol] 24.2 mmol/L Normal 21.0-32.0 [facility] Comment on above: Order Comment: REDRA W. PREVIOUS SPECIMEN REJECTED DUE TOHEMOLYSIS. 06/25/241755 Jamari Aguayo. Performed By: #### L 500.4050, L501.2450 ####[facility] [address] [place], [address] Creatinine [Mass/Vol] 1.27 mg/dL High 0.70-1.20 [facility] Comment on above: Order Comment: REDRA W. PREVIOUS SPECIMEN REJECTED DUE TOHEMOLYSIS. 06/25/241755 Jamari Aguayo. Performed By: #### L 500.4050, L501.2450 ####[facility] [address] [place], [address] ECRCL 65.06 ml/min Normal 50-250 [facility] Comment on above: Order Comment: REDRA W. PREVIOUS SPECIMEN REJECTED DUE TOHEMOLYSIS. 06/25/241755 Jamari Aguayo. Performed By: #### L 500.4050, L501.2450 ####[facility] [address] [place], [address] GAP 16 High 5-15 [facility] Comment on above: Order Comment: REDRA W. PREVIOUS SPECIMEN REJECTED DUE TOHEMOLYSIS. 06/25/241755 Jamari Aguayo. Performed By: #### L 500.4050, L501.2450 ####[facility] [address] [place], [address] GFR/1.73 sq M.predicted among non-blacks MDRD (S/P/Bld) [Vol rate/Area] 64 mL/min/{1.73_m2} Normal >60 [facility] Comment on above: Order Comment: RED W. PREVIOUS SPECIMEN REJECTED DUE TOHEMOLYSIS. 06/25/241755 Jamari Aguayo. Result Comment: mL/m in/1.73m2 CKD-EPI Creatinine Equation (2020) Performed By: #### L 500.4050, L501.2450 ####[facility] [address] [place], [address] Globulin (S) [Mass/Vol] 2.5 g/dL Normal 2.2-4.2 [facility] Comment on above: Order Comment: RED W. PREVIOUS SPECIMEN REJECTED DUE TOHEMOLYSIS. 06/25/241755 Jamari Aguayo. Performed By: #### L 500.4050, L501.2450 ####[facility] [address] [place], [address] Glucose [Mass/Vol] 398 mg/dL High 70-99 [facility] Comment on above: Order Comment: RED W. PREVIOUS SPECIMEN REJECTED DUE TOHEMOLYSIS. 06/25/241755 Jamari Aguayo. Performed By: #### L 500.4050, L501.2450 ####[facility] [address] [place], [address] Potassium [Moles/Vol] 2.2 mmol/L Invalid Interpretation Code 3.3-5.1 [facility] Comment on above: Order Comment: RED W. PREVIOUS SPECIMEN REJECTED DUE TOHEMOLYSIS. 06/25/241755 Jamari Aguayo. Result Comment: Crit ical Result(s) Called at: 06/25/2024-18:50 by: Khushi to Ann-Marie Mondragon.??Results read back by same. Performed By: #### L 500.4050, L501.2450 ####[facility] [address] [place], [address] Sodium [Moles/Vol] 136 mmol/L Normal 133-145 [facility] Comment on above: Order Comment: REDRA W. PREVIOUS SPECIMEN REJECTED DUE TOHEMOLYSIS. 06/25/241755 Jamari Aguayo. Performed By: #### L 500.4050, L501.2450 ####[facility] [address] [place], [address] T PROT 5.0 g/dL Low 5.9-8.4 [facility] Comment on above: Order Comment: REDRA W. PREVIOUS SPECIMEN REJECTED DUE TOHEMOLYSIS. 06/25/241755 Jamari Aguayo. Performed By: #### L 500.4050, L501.2450 ####[facility] [address] [place], [address] Urea nitrogen [Mass/Vol] 8 mg/dL Normal 4-19 [facility] Comment on above: Order Comment: REDRA W. PREVIOUS SPECIMEN REJECTED DUE TOHEMOLYSIS. 06/25/241755 Jamari Aguayo. Performed By: #### L 500.4050, L501.2450 ####[facility] [address] [place], [address] ALB Normal 3.4-4.8 [facility] Comment on above: Result Comment: This specimen has been REJECTED due to Laboratory criteria:Hemolyzed.KIM (ED) has been notified of need of recollection.06/25/241754 Jamari Callahan White Performed By: #### L 500.4050, L503.6005, L100.0100, L501.2450 ####[facility] [address] [place], [address] ALK PHOS Normal 40-129 [facility] Comment on above: Result Comment: This specimen has been REJECTED due to Laboratory criteria:Hemolyzed.KIM (ED) has been notified of need of recollection.06/25/241754 Jamari Callahan White Performed By: #### L 500.4050, L503.6005, L100.0100, L501.2450 ####[facility] [address] [place], [address] ALT Normal <=46 [facility] Comment on above: Result Comment: This specimen has been REJECTED due to Laboratory criteria:Hemolyzed.EDILIAE (ED) has been notified of need of recollection.06/25/241754 Jamari L White Performed By: #### L 500.4050, L503.6005, L100.0100, L501.2450 ####[facility] [address] [place], [address] AST Normal <=37 [facility] Comment on above: Result Comment: This specimen has been REJECTED due to Laboratory criteria:Hemolyzed.EDILIAE (ED) has been notified of need of recollection.06/25/241754 Jamari L White Performed By: #### L 500.4050, L503.6005, L100.0100, L501.2450 ####[facility] [address] [place], [address] BUN Normal 4-19 [facility] Comment on above: Result Comment: This specimen has been REJECTED due to Laboratory criteria:Hemolyzed.KIM (ED) has been notified of need of recollection.06/25/241754 Jamari L White Performed By: #### L 500.4050, L503.6005, L100.0100, L501.2450 ####[facility] [address] [place], [address] BUN/CRE Normal 10-20 [facility] Comment on above: Result Comment: This specimen has been REJECTED due to Laboratory criteria:Hemolyzed.KIM (ED) has been notified of need of recollection.06/25/241754 Jamari L White Performed By: #### L 500.4050, L503.6005, L100.0100, L501.2450 ####[facility] [address] [place], [address] Calcium Normal 7.6-11.0 [facility] Comment on above: Result Comment: This specimen has been REJECTED due to Laboratory criteria:Hemolyzed.KIM (ED) has been notified of need of recollection.06/25/241754 Jamari L White Performed By: #### L 500.4050, L503.6005, L100.0100, L501.2450 ####[facility] [address] [place], [address] CL Normal 98-108 [facility] Comment on above: Result Comment: This specimen has been REJECTED due to Laboratory criteria:Hemolyzed.KIM (ED) has been notified of need of recollection.06/25/241754 Jamari L White Performed By: #### L 500.4050, L503.6005, L100.0100, L501.2450 ####[facility] [address] [place], [address] CO2 Normal 21.0-32.0 [facility] Comment on above: Result Comment: This specimen has been REJECTED due to Laboratory criteria:Hemolyzed.KIM (ED) has been notified of need of recollection.06/25/241754 Jamari L White Performed By: #### L 500.4050, L503.6005, L100.0100, L501.2450 ####[facility] [address] [place], [address] CREAT,SERUM Normal 0.70-1.20 [facility] Comment on above: Result Comment: This specimen has been REJECTED due to Laboratory criteria:Hemolyzed.KIM (ED) has been notified of need of recollection.06/25/241754 Jamari L White Performed By: #### L 500.4050, L503.6005, L100.0100, L501.2450 ####[facility] [address] [place], [address] eGFR Normal >60 [facility] Comment on above: Result Comment: This specimen has been REJECTED due to Laboratory criteria:Hemolyzed.EDILIAE (ED) has been notified of need of recollection.06/25/241754 Jamari Callahan White Performed By: #### L 500.4050, L503.6005, L100.0100, L501.2450 ####[facility] [address] [place], [address] GAP Normal 5-15 [facility] Comment on above: Result Comment: This specimen has been REJECTED due to Laboratory criteria:Hemolyzed.EDILIAE (ED) has been notified of need of recollection.06/25/241754 Jamari Callahan White Performed By: #### L 500.4050, L503.6005, L100.0100, L501.2450 ####[facility] [address] [place], [address] GLU Normal 70-99 [facility] Comment on above: Result Comment: This specimen has been REJECTED due to Laboratory criteria:Hemolyzed.EDILIAE (ED) has been notified of need of recollection.06/25/241754 Jamari Callahan White Performed By: #### L 500.4050, L503.6005, L100.0100, L501.2450 ####[facility] [address] [place], [address] Potassium Normal 3.3-5.1 [facility] Comment on above: Result Comment: This specimen has been REJECTED due to Laboratory criteria:Hemolyzed.EDILIAE (ED) has been notified of need of recollection.06/25/241754 Jamari L White Performed By: #### L 500.4050, L503.6005, L100.0100, L501.2450 ####[facility] [address] [place], [address] T BILI Normal 0.00-1.30 [facility] Comment on above: Result Comment: This specimen has been REJECTED due to Laboratory criteria:Hemolyzed.KIM (ED) has been notified of need of recollection.06/25/241754 Jamari L White Performed By: #### L 500.4050, L503.6005, L100.0100, L501.2450 ####[facility] [address] [place], [address] T PROT Normal 5.9-8.4 [facility] Comment on above: Result Comment: This specimen has been REJECTED due to Laboratory criteria:Hemolyzed.LORILIE (ED) has been notified of need of recollection.06/25/241754 Jamari L White Performed By: #### L 500.4050, L503.6005, L100.0100, L501.2450 ####[facility] [address] [place], [address] Comprehensive Metabolic Profil Normal 133-145 [facility] Comment on above: Result Comment: This specimen has been REJECTED due to Laboratory criteria:Hemolyzed.PAIGEILIE (ED) has been notified of need of recollection.06/25/241754 Jamari L White Performed By: #### L 500.4050, L503.6005, L100.0100, L501.2450 ####[facility] [address] [place], [address] Emergency Department Summary on 06-25-2024 Emergency Department Summary Normal [facility] Eosinophil percentageOrdered By: Rolan Romero on 06-25-2024 Eosinophils/100 WBC (Bld) 0.2 % 0-5 [facility] Erythrocyte distribution wid th ratioOrdered By: Rolan Romero on 06-25-2024 Erythrocyte distribution width (RBC) [Ratio] 16.2 % High 11.6-14.6 [facility] Erythrocyte distribution wid th standard deviationOrdered By: Rolan Quinn on 06-25-2024 Erythrocyte distribution width (RBC) [Ratio] 63.9 fl High 35.1-43.9 [facility] Glomerular filtration rate ( GFR) estimation/1.73 sq m using serum, plasma, or whole bOrdered By: Rolan Romero on 06-25-2024 GFR/1.73 sq M.predicted among non-blacks MDRD (S/P/Bld) [Vol rate/Area] 64 mL/min/{1.73_m2} >60 [facility] Comment on above: mL/min/1.73m2 CKD-EP I Creatinine Equation (2020) [facility] deOrdered By: Rolan Romero on 06-25-2024 Glucose [Mass/Vol] 277 mg/dL High 74-106 [facility] Comment on above: MANAGEMENT OF PATIEN T CARE PER NURSING PROTOCOL H AND P Exam - [place] 06-25-2024 H&P Exam - Hospitalist Normal [facility] Hematocrit Auto (Bld) [Volum e fraction]Ordered By: Rolan Romero on 06-25-2024 Hematocrit (Bld) [Volume fraction] 29.8 % Low 40-54 [facility] Hemoglobin A1c percentageOrd ered By: Conrado Fraser on 06-25-2024 HbA1c (Bld) [Mass fraction] 6.6 % High <5.7 [facility] Comment on above: Normal < 5.7 % Predi abetic 5.7 - 6.4 % Diabetic >or= 6.5 % Please note range changes. Hemoglobin measurementOrdere d By: Rolan Romero on 06-25-2024 Hemoglobin (Bld) [Mass/Vol] 10.1 g/dL Low 13.0-16.5 [facility] Immature granulocytes/100 WB C Auto (Bld)Ordered By: Rolan Romero on 06-25-2024 Immature granulocytes/100 WBC (Bld) 0.200 % 0.0-0.9 [facility] Comment on above: IG% - Immature Granu locytes (promyelocytes, myelocytes and metamyelocytes) > 1% indicates that a LEFT SHIFT is Present. Ketones Test strip Ql (U)Ord ered By: Rolan Romero on 06-25-2024 Ketones Ql (U) Negative Negative [facility] Laboratory - Chemistry and C hemistry - challengeOrdered By: Rolan Romero on 06-25-2024 AST [Catalytic activity/Vol] 62 U/L High <38 [facility] Lactic Acidon 06-25-2024 Lactate [Moles/Vol] 4.8 mmol/L Invalid Interpretation Code 0.0-2.0 [facility] Comment on above: Result Comment: Crit ical Result(s) Called at: 2317by: MATTHEW HUBER TO ELIS AUGUSTE.??Results read back bysame. Performed By: #### L 503.6005 ####[facility] [address] [place], [place], [id number] Lactate [Moles/Vol] 6.6 mmol/L Invalid Interpretation Code 0.0-2.0 [facility] Comment on above: Order Comment: Y Result Comment: Crit ical Result(s) Called at: 06/25/2024-18:50 by: Khushi to Ann-Marie Mondragon.??Results read back by same. Performed By: #### L 500.4050, L503.6005, L100.0100, L501.2450 ####[facility] [address] [place], [place], [id number] Lactic acid measurementOrder ed By: Rolan Romero on 06-25-2024 Lactate [Moles/Vol] 4.8 mmol/L High 0.0-2.[address] [facility] Comment on above: Critical Result(s) C alled at: 2317by: MATTHEW HUBER TO ELIS AUGUSTE. Results read back by same. Lipaseon 06-25-2024 Lipase [Catalytic activity/Vol] 6 U/L Low 13-75 [facility] Comment on above: Order Comment: OLIVIA Dobbs PREVIOUS SPECIMEN REJECTED DUE TOHEMOLYSIS. 06/25/241755 Jamari Aguayo. Result Comment: Mary Anne zamorano note:LIPASE revised reference range effective 22.New Lipase methodology. Expected to produce lower valuesthan the previous assay method.NEW Reference Range: 13 - 75 U/L Performed By: #### L 500.4050, L501.2450 ####[facility] [address] [place], [address] Lipase [Catalytic activity/Vol] 11 U/L Low 13-75 [facility] Comment on above: Order Comment: This specimen has been REJECTED due to Laboratory criteria:Hemolyzed.KIM (ED) has been notified of need of recollection.06/25/24 1755 Jamari Callahan White Result Comment: This specimen has been REJECTED due to Laboratory criteria:Hemolyzed.LORILIE (ED) has been notified of need of recollection.06/25/24 1755 Jamari L WhitePlease note:LIPASE revised reference range effective 22.New Lipase methodology. Expected to produce lower valuesthan the previous assay method.NEW Reference Range: 13 - 75 U/L Performed By: #### L 500.4050, L503.6005, L100.0100, L501.2450 ####[facility] [address] [place], [address] Lipase measurementOrdered By : Rolan Romero on 06-25-2024 Lipase [Catalytic activity/Vol] 6 U/L Low 13-75 [facility] Comment on above: Please note:LIPASE r evised reference range effective 22. New Lipase methodology. Expected to produce lower values than the previous assay method. NEW Reference Range: 13 - 75 U/L MCV (mean corpuscular volume ) determinationOrdered By: Rolan Romero on 06-25-2024 MCV (RBC) [Entitic vol] 106.4 fL High 80-94 [facility] Magnesiumon 06-25-2024 Magnesium [Mass/Vol] 1.8 mg/dL Normal 1.5-2.2 [facility] Comment on above: Performed By: #### L 501.5600, L501.6901, L501.5200 ####[facility] [address] [place], [address] Magnesium measurement (mass/ volume)Ordered By: Rolan Romero on 06-25-2024 Magnesium (Unsp spec) [Mass/Vol] 1.8 mg/dL 1.5-2.2 [facility] Mean corpuscular hemoglobin (MCH) determinationOrdered By: Rolan Romero on 06-25-2024 MCH (RBC) [Entitic mass] 36.1 pg High 27.0-32.0 [facility] Mean corpuscular hemoglobin concentration (MCHC) determinationOrdered By: Rolan Romero on 06-25-2024 MCHC (RBC) [Mass/Vol] 33.9 g/dL 32-36 [facility] Mean platelet volume determi nationOrdered By: Rolan Romero on 06-25-2024 Platelet mean volume (Bld) [Entitic vol] 11.8 fL 6.2-12.0 [facility] Microscopic analysis of urin e for red blood cells (RBC)Ordered By: Rolan Romero on 06-25-2024 Microscopic analysis of urine for red blood cells (RBC) 0 SEEN /hpf 0-5 [facility] Monocyte percentageOrdered B y: Rolan Romero on 06-25-2024 Monocytes/100 WBC (Bld) 11.6 % High 0-10 [facility] Mucus LM Ql (Urine sed)Order ed By: Rolan Romero on 06-25-2024 Mucus Ql (Urine sed) 0 SEEN /hpf [facility] Neutrophil percentageOrdered By: Rolan Romero on 06-25-2024 Neutrophils/100 WBC (Bld) 65.3 % 47-70 [facility] Nitrite Test strip Ql (U)Ord ered By: Rolan Romero on 06-25-2024 Nitrite Ql (U) Negative Negative [facility] No Panel InformationOrdered By: Rolan Romero on 06-25-2024 Blood Gas Sample Site Not entered [facility] Blood Gas Specimen Type ROSA [facility] Oxygen Delivery Device Room Air [facility] ROSA [facility] Not entered [facility] Room Air [facility] No Panel InformationOrdered By: Conrado Fraser on 06-25-2024 Urine Buprenorphine Qualitative Negative < 200 ng/mL [facility] Urine Oxycodone Screen Negative < 100 ng/mL [facility] Negative < 200 ng/mL [facility] Nucleated red blood cell per centageOrdered By: Rolan Romero on 06-25-2024 Nucleated RBC/100 WBC (Bld) [Ratio] 0 % 0-5 [facility] Platelet countOrdered By: Tray Romero on 06-25-2024 Platelets (Bld) [#/Vol] 124 10*3/uL Low 150-450 [facility] Potassiumon 06-25-2024 Potassium [Moles/Vol] 2.1 mmol/L Invalid Interpretation Code 3.3-5.1 [facility] Comment on above: Result Comment: Crit ical Result(s) Called at: 06/25/2024-:41 by: Khushi to WILFREDO VASQUEZ.??Results read back by same. Performed By: #### L 501.5600, L501.6901, L501.5200 ####[facility] [address] [place], [address] Potassium measurement (mass/ volume)Ordered By: Rolan Romero on 06-25-2024 Potassium (Unsp spec) [Mass/Vol] 2.1 mmol/L Low 3.3-5.1 [facility] Comment on above: Critical Result(s) C alled at: 06/25/2024-:41 by: Jamari Aguayo to WILFREDO VASQUEZ. Results read back by same. Protein Test strip Ql (U)Ord ered By: Rolan Romero on 06-25-2024 Protein Ql (U) 15 mg/dl High Negative [facility] Quantitative urine opiates m easurementOrdered By: Conrado Fraser on 06-25-2024 Opiates Ql (U) Negative < 300 ng/mL [facility] RBC Auto (Bld) [#/Vol]Ordere d By: Rolan Romero on 06-25-2024 RBC (Bld) [#/Vol] 2.80 10*6/uL Low 4.6-6.[address] [facility] Screening urine fentanyl mine surementOrdered By: Conrado Fraser on 06-25-2024 fentaNYL Screen Ql (U) Negative [facility] Serum creatinine measurement (mass/volume)Ordered By: Rolan Romero on 06-25-2024 Creatinine [Mass/Vol] 1.27 mg/dL High 0.70-1.20 [facility] Serum globulin measurementOr dered By: Rolan Romero on 06-25-2024 Globulin (S) [Mass/Vol] 2.5 g/dL 2.2-4.2 [facility] Serum glucose measurement (m ass/volume)Ordered By: Rolan Romero on 06-25-2024 Glucose [Mass/Vol] 398 mg/dL High 70-99 [facility] Serum or plasma alanine padilla otransferase (ALT) measurementOrdered By: Rolan Romero on 06-25-2024 ALT [Catalytic activity/Vol] 32 U/L <47 [facility] Serum or plasma albumin luciana urement (mass/volume)Ordered By: Rolan Quinn on 06-25-2024 Albumin [Mass/Vol] 2.5 g/dL Low 3.4-4.8 [facility] Serum or plasma albumin/glob ulin mass ratioOrdered By: Rolan Romero on 06-25-2024 Albumin/Globulin [Mass ratio] 1.0 {ratio} 0.9-2.4 [facility] Serum or plasma alkaline nolan sphatase measurementOrdered By: Rolan Romero on 06-25-2024 ALP [Catalytic activity/Vol] 125 U/L 40-129 [facility] Serum or plasma calcium luciana urement (mass/volume)Ordered By: Rolan Quinn on 06-25-2024 Calcium [Mass/Vol] 7.7 mg/dL 7.6-11.0 [facility] Serum or plasma ethanol luciana urement (mass/volume)Ordered By: Rolan Quinn on 06-25-2024 Ethanol [Mass/Vol] mg/dL <10.1 [facility] Comment on above: This test is for med ical purposes only. The legal definition of intoxication varies according to local law. Serum or plasma urea nitroge n measurement (mass/volume)Ordered By: Rolan Romero on 06-25-2024 Urea nitrogen [Mass/Vol] 8 mg/dL 4-19 [facility] Sodium levelOrdered By: Praneeth Romero on 06-25-2024 Sodium [Moles/Vol] 136 mmol/L 133-145 [facility] Squamous epithelial cells de tection in urine sediment by light microscopyOrdered By: Rolan Romero on 06-25-2024 Epithelial cells.squamous LM Ql (Urine sed) 0 SEEN /hpf 0-5 [facility] Stool lactoferrin detection by immunoassayOrdered By: Conrado Fraser on 06-25-2024 Lactoferrin IA Ql (Stl) [facility] Total proteinOrdered By: Dom Romero on 06-25-2024 Protein [Mass/Vol] 5.0 g/dL Low 5.9-8.4 [facility] Urinalysis, Completeon 06-25 BACTERIA 0 SEEN Normal None Seen [facility] Comment on above: Order Comment: CLEAN CATCH Performed By: #### L 400.0001 ####[facility] [address] [place], [address] EPI,SQUAMOUS 0 SEEN Normal 0-5 [facility] Comment on above: Order Comment: CLEAN CATCH Performed By: #### L 400.0001 ####[facility] [address] [place], [address] Mucus Ql (Urine sed) 0 SEEN Normal [facility] Comment on above: Order Comment: CLEAN CATCH Performed By: #### L 400.0001 ####[facility] [address] [place], [address] RBC 0 SEEN Normal 0-5 [facility] Comment on above: Order Comment: CLEAN CATCH Performed By: #### L 400.0001 ####[facility] [address] [place], [address] WBC 0 SEEN Normal 0-5 [facility] Comment on above: Order Comment: CLEAN CATCH Performed By: #### L 400.0001 ####[facility] [address] [place], [address] Urine benzodiazepine levelOr dered By: Conrado Fraser on 06-25-2024 Benzodiazepines Ql (U) Negative < 200 ng/mL [facility] Urine clarityOrdered By: Dom Romero on 06-25-2024 Clarity (U) Clear Clear [facility] Urine cocaine levelOrdered B y: Conrado Fraser on 06-25-2024 Cocaine Ql (U) Negative < 300 ng/mL [facility] Urine color determinationOrd ered By: Rolan Romero on 06-25-2024 Color (U) Yellow Yellow [facility] Urine yqsus-9-ylumlwlcltjkdi abinol (THC) measurementOrdered By: Conrado Fraser on 06-25-2024 Cannabinoids Screen Ql (U) Negative < 50 ng/mL [facility] Urine glucose detectionOrder ed By: Rolan Romero on 06-25-2024 Glucose Ql (U) 1000 mg/dl High Normal [facility] Urine leukocyte esterase det ection by dipstickOrdered By: Rolan Romero on 06-25-2024 Leukocyte esterase Test strip Ql (U) Negative Negative [facility] Urine pHOrdered By: Rolan Saul on 06-25-2024 pH (U) 7.0 [pH] 5.0 - 8.0 [facility] Urine phencyclidine (PCP) de tectionOrdered By: Conrado Fraser on 06-25-2024 Phencyclidine Ql (U) Negative < 25 ng/mL [facility] Urine sediment bacteria coun t by microscopy (number/high power field)Ordered By: Rolan Romero on 06-25-2024 Bacteria LM.HPF (Urine sed) [#/Area] 0 /[HPF] None Seen [facility] Urine specific gravity measu rementOrdered By: Rolan Romero on 06-25-2024 Specific gravity (U) [Rel density] 1.010 1.002-1.030 [facility] Urine urobilinogen measureme ntOrdered By: Rolan Romero on 06-25-2024 Urobilinogen Ql (U) Normal mg/dl Normal [facility] Venous Blood Gason Blood Gas Type ROSA Normal [facility] Comment on above: Performed By: #### L 9000.0810 ####[facility] [address] [place], [address] CO2 [Moles/Vol] 30 mmol/L Normal 23-33 [facility] Comment on above: Performed By: #### L 9000.0810 ####[facility] [address] [place], [address] HCO3 (Bld) [Moles/Vol] 29 mmol/L High 22-[address] [facility] Comment on above: Performed By: #### L 9000.0810 ####[facility] [address] [place], [address] O2 Delivery Dev Room Air [facility] Comment on above: Performed By: #### L 9000.0810 ####[facility] [address] [place], [address] SITE Not entered Normal [facility] Comment on above: Performed By: #### L 9000.0810 ####[facility] [address] [place], [address] VBG BE 4 mmol/L High -1.0-3.5 [facility] Comment on above: Performed By: #### L 9000.0810 ####[facility] [address] [place], [address] VBG pCO2 42.7 mmHg Normal 41-51 [facility] Comment on above: Performed By: #### L 9000.0810 ####[facility] [address] [place], [place], [address] VBG pH 7.43 High 7.32-7.42 [facility] Comment on above: Performed By: #### L 9000.0810 ####[facility] [address] [place], [place], [address] VBG PO2 29 mmHg Normal 25-40 [facility] Comment on above: Performed By: #### L 9000.0810 ####[facility] [address] [place], [place], [address] VBG SO2 58 Normal 50-70 [facility] Comment on above: Performed By: #### L 9000.0810 ####[facility] [address] [place], [place], [id number] Venous blood base excess mine surementOrdered By: Rolan Romero on 06-25-2024 Base excess Calc (BldV) [Moles/Vol] 4 mmol/L High -1.0-3.5 [facility] Venous blood bicarbonate mine surementOrdered By: Rolan Romero on 06-25-2024 HCO3 (Bld) [Moles/Vol] 29 mmol/L High 22-[address] [facility] Venous blood oxygen saturati on measurementOrdered By: Rolan Romero on 06-25-2024 Oxygen saturation in Blood 58 % 50-70 [facility] Venous blood pH measurementO rdered By: Rolan Romero on 06-25-2024 pH (BldV) 7.43 [pH] High 7.32-7.42 [facility] Venous blood partial pressur e of carbon dioxide measurementOrdered By: Rolan Romero on 06-25-2024 CO2 (BldV) [Partial pressure] 42.7 mm[Hg] 41-51 [facility] Venous blood partial pressur e of oxygen measurementOrdered By: Rolan Quinn on 06-25-2024 Oxygen (BldV) [Partial pressure] 29 mm[Hg] 25-40 [facility] White blood cell (WBC) count Ordered By: Rolan Romero on 06-25-2024 WBC (Bld) [#/Vol] 4.8 10*3/uL 4.4-11.0 [facility] White blood cell countOrdere d By: Rolan Romero on 06-25-2024 White blood cell count 0 SEEN /hpf 0-5 [facility] CNPNon 06-21-2024 CNPN Telephone (AGFAMPLE) ANALILIA MELENDREZ ([id number]) 1960 M Date Time Provider Department 06/21/24 MARIANNA WAGNER During your visit today, we recorded the following information about you: Andrew Ponce MA 06/21/2024 2:40 PM Signed Pt. Lm on stating awhile back you put him on antibiotics for a UTI and he would like a refill. Please advise. FLORENTINO Stephens Julie, MA 06/22/2024 3:55 PM Signed Patient called again requesting something to be called in FLORENTINO Cerrato Brittny A, APRN.[facility] 06/23/2024 8:13 AM Signed His urine would need to be tested first. I placed the lab order. Marianna Wagner APRN.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 06/23/2024 8:13 AM Signed Addended by: MARIANNA WAGNER on: 06/23/2024 08:13 AM Modules accepted: Giulia Ritchie MA 06/23/2024 2:41 PM Signed Left message informing patient, phone number to reach the office was left for any questions or concerns. Giulia Rogel MA Allergies As of Date: 06/21/2024 (No Known Allergies) Date Reviewed: 04/12/2024 Reviewed by: Vandana Edwards - Fully Assessed Reason for Visit: Patient Question [1477] Primary Visit Diagnosis:UTI symptoms [R39.9] Order(s):URINALYSIS (WITH MICROSCOPIC) WITH CULTURE IF INDICATED [SQUACII] Order #: [id number] FUTURE Prescriptions as of 06/23/2024 - UNIFINE PENTIPS 31 gauge x 04/23 USE 3 TIMES DAILY - metoprolol tartrate, short acting, (LOPRESSOR) 50 mg tablet TAKE ONE TABLET BY MOUTH TWICE A DAY - pantoprazole DR (PROTONIX) 40 mg tablet TAKE ONE TABLET BY MOUTH TWICE A DAY 3O MINUTES BEFORE MEAL - ramipril (ALTACE) 10 mg capsule TAKE ONE CAPSULE BY MOUTH EVERY DAY - atorvastatin (LIPITOR) 40 mg tablet TAKE ONE TABLET BY MOUTH EVERY DAY - insulin glargine 100 unit/mL (3 mL) Inject 15 Units subcutaneously once daily. - metFORMIN ER (GLUCOPHAGE XR) 500 mg 24 hr tablet Take 2 tablets by mouth daily with breakfast. - FARXIGA 10 mg tablet Take 1 tablet by mouth daily with breakfast. - ferrous sulfate (FEROSUL) 325 mg (65 mg iron) tablet TAKE ONE TABLET BY MOUTH EVERY DAY - Blood-Glucose Sensor (FREESTYLE MANGO 3 SENSOR) daniel Apply new sensor every fourteen (14) days to upper arm. - cegxsv-ucfwsgfd-xfoceym (CREON 36) 36,000-114,000- 180,000 unit delayed release capsule Take 2 pills by mouth with first bite of meal and take 1 pill with snacks. Max 10 per day. - Cholecalciferol, Vitamin D3, (VITAMIN D-3) 50 mcg (2,000 unit) cap Take 1 capsule by mouth once daily. - Blood-Glucose Meter,Continuous (FREESTYLE MANGO 3 READER) [facility] Use to check blood sugar at least four (4) times daily. - dicyclomine (BENTYL) 10 mg capsule Take 1 capsule by mouth before meals and at bedtime. - MULTIVITAMIN ORAL Take 1 tablet by mouth once daily. Problem List As Of Date 06/21/2024 Noted Resolved SUMMARY 03/09/2016 Acute thoracic aortic dissection (HCC) [I71.019]03/09/2016 Primary hypertension [I10] 03/09/2016 History of IVDU (intravenous drug user) [F19.90]03/09/2016 Smoking greater than 10 pack years [F17.210] 03/09/2016 History of depression [Z86.59] 03/09/2016 Type 2 diabetes mellitus with complication, wit*03/09/2016 Alcohol-induced chronic pancreatitis (HCC) [K86*03/09/2016 History of ruptured aneurysm of thoracic aorta *03/09/2016 03/10/2016 Acute headache [R51.9] 03/09/2016 History of alcohol abuse [F10.11] 03/09/2016 History of dissection of thoracic aorta [Z86.79]03/10/2016 Preop testing [Z01.818] 03/16/2016 03/20/2016 Cardiac insufficiency (HCC) [I50.9] 03/19/2016 03/26/2016 Postoperative hypotension [I95.81] 03/19/2016 03/21/2016 Pain, postoperative, acute [G89.18] 03/19/2016 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] 03/20/2016 03/26/2016 Acute respiratory failure with hypoxia (HCC) [J*03/21/2016 03/26/2016 Fluid overload [E87.70] 03/21/2016 03/22/2016 Hypoxemia [R09.02] 03/23/2016 03/26/2016 Discharge planning issues [Z75.8] 03/26/2016 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] Pacemaker [Z95.0] Adrenal nodule (HCC) [E27.9] 08/09/2023 Acute kidney failure, unspecified (HCC) [N17.9] 01/03/2017 Anemia in CKD (chronic kidney disease) [N18.9, *08/09/2023 Aortic aneurysm (HCC) [I71.9] 08/09/2023 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 Chronic pancreatitis (HCC) [K86.1] 08/09/2023 Calcium deficiency [E58] 08/09/2023 Cirrhosis of liver (HCC) [K74.60] 08/09/2023 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 Normal 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 He denies other symptoms patient would like to know if he needs a med change FLORENTINO Cerrato Brittny A, VEHICLE DISMANTLER.[facility] 04/14/2024 8:19 AM Signed I would like for him to come in for a visit with me but at least a BP check if he can't get in with me within 2 weeks. Andrew Ponce MA 04/14/2024 9:17 AM Signed Please help assist with in person visit . Also if it is past 2 weeks , he will need a nurse visit for blood pressure. Thank you. Estrella Tang 04/14/2024 10:04 AM Signed Called patient to schedule an appt. First available was in 3 weeks scheduled for May 05 at 11:20. Patient said it was to hard to find a ride for 2 appt. Was going to go to urgent care for a BP check and would call if he needed to come in sooner. Estrella Tang Allergies As of Date: 04/13/2024 (No Known Allergies) Date Reviewed: 04/12/2024 Reviewed by: Vandana Edwards - Fully Assessed Reason for Visit: Hypertension [168] Prescriptions as of 04/14/2024 - atorvastatin (LIPITOR) 40 mg tablet TAKE ONE TABLET BY MOUTH EVERY DAY - metoprolol tartrate, short acting, (LOPRESSOR) 50 mg tablet TAKE ONE TABLET BY MOUTH TWICE A DAY - ramipril (ALTACE) 10 mg capsule TAKE ONE CAPSULE BY MOUTH EVERY DAY - insulin glargine 100 unit/mL (3 mL) Inject 15 Units subcutaneously once daily. - metFORMIN ER (GLUCOPHAGE XR) 500 mg 24 hr tablet Take 2 tablets by mouth daily with breakfast. - pantoprazole DR (PROTONIX) 40 mg tablet TAKE ONE TABLET BY MOUTH TWICE A DAY 30 MINUTES BEFORE EATING - UNIFINE PENTIPS 31 gauge x 3/16 USE ONE 3 TIMES DAILY - FARXIGA 10 mg tablet Take 1 tablet by mouth daily with breakfast. - ferrous sulfate (FEROSUL) 325 mg (65 mg iron) tablet TAKE ONE TABLET BY MOUTH EVERY DAY - Blood-Glucose Sensor (FREESTYLE MANGO 3 SENSOR) daniel Apply new sensor every fourteen (14) days to upper arm. - bneifd-ztpgeemg-ruzdmnm (CREON 36) 36,000-114,000- 180,000 unit delayed release capsule Take 2 pills by mouth with first bite of meal and take 1 pill with snacks. Max 10 per day. - Cholecalciferol, Vitamin D3, (VITAMIN D-3) 50 mcg (2,000 unit) cap Take 1 capsule by mouth once daily. - Blood-Glucose Meter,Continuous (FREESTYLE MANGO 3 READER) [facility] Use to check blood sugar at least four (4) times daily. - dicyclomine (BENTYL) 10 mg capsule Take 1 capsule by mouth before meals and at bedtime. - MULTIVITAMIN ORAL Take 1 tablet by mouth once daily. Problem List As Of Date 04/13/2024 Noted Resolved SUMMARY 03/09/2016 Acute thoracic aortic dissection (HCC) [I71.019]03/09/2016 Primary hypertension [I10] 03/09/2016 History of IVDU (intravenous drug user) [F19.90]03/09/2016 Smoking greater than 10 pack years [F17.210] 03/09/2016 History of depression [Z86.59] 03/09/2016 Type 2 diabetes mellitus with complication, wit*03/09/2016 Alcohol-induced chronic pancreatitis (HCC) [K86*03/09/2016 History of ruptured aneurysm of thoracic aorta *03/09/2016 03/10/2016 Acute headache [R51.9] 03/09/2016 History of alcohol abuse [F10.11] 03/09/2016 History of dissection of thoracic aorta [Z86.79]03/10/2016 Preop testing [Z01.818] 03/16/2016 03/20/2016 Cardiac insufficiency (HCC) [I50.9] 03/19/2016 03/26/2016 Postoperative hypotension [I95.81] 03/19/2016 03/21/2016 Pain, postoperative, acute [G89.18] 03/19/2016 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] 03/20/2016 03/26/2016 Acute respiratory failure with hypoxia (HCC) [J*03/21/2016 03/26/2016 Fluid overload [E87.70] 03/21/2016 03/22/2016 Hypoxemia [R09.02] 03/23/2016 03/26/2016 Discharge planning issues [Z75.8] 03/26/2016 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] Pacemaker [Z95.0] Adrenal nodule (HCC) [E27.9] 08/09/2023 Acute kidney failure, unspecified (HCC) [N17.9] 01/03/2017 Anemia in CKD (chronic kidney disease) [N18.9, *08/09/2023 Aortic aneurysm (HCC) [I71.9] 08/09/2023 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 Chronic pancreatitis (HCC) [K86.1] 08/09/2023 Calcium deficiency [E58] 08/09/2023 Cirrhosis of liver (HCC) [K74.60] 08/09/2023 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 Normal [facility] CBC W Auto Differential pane l (Bld)on 04-12-2024 Basophils (Bld) [#/Vol] 0.11 10*3/uL High <0.11 [facility] Comment on above: Order Comment: Speci men Type: BLOOD SPECIMENOrdering Facility: [facility] Address: [address] [place] [address] Performed By: #### 5 7021-8 ####[facility] [id number] [place] [address] [place] Basophils/100 WBC (Bld) 2.1 % Normal [facility] Comment on above: Order Comment: Speci men Type: BLOOD SPECIMENOrdering Facility: [facility] Address: [address] [place] [address] Performed By: #### 5 7021-8 ####[facility] [id number] [place] [address] [place] Differential cell count method Nom (Bld) Auto Normal [facility] Comment on above: Order Comment: Speci men Type: BLOOD SPECIMENOrdering Facility: [facility] Address: [address] [place] [address] Performed By: #### 5 7021-8 ####[facility] [id number] [place] [address] [place] Eosinophils (Bld) [#/Vol] 0.06 10*3/uL Normal <0.46 [facility] Comment on above: Order Comment: Speci men Type: BLOOD SPECIMENOrdering Facility: [facility] Address: [address] [place] [address] Performed By: #### 5 7021-8 ####[facility] [id number] [place] [address] [place] Eosinophils/100 WBC (Bld) 1.1 % Normal [facility] Comment on above: Order Comment: Speci men Type: BLOOD SPECIMENOrdering Facility: [facility] Address: [address] [place] [address] Performed By: #### 5 7021-8 ####[facility] [id number] [place] [address] [place] Erythrocyte distribution width (RBC) [Ratio] 15.6 % High 11.5-15.0 [facility] Comment on above: Order Comment: Speci men Type: BLOOD SPECIMENOrdering Facility: [facility] Address: [address] [place] [address] Performed By: #### 5 7021-8 ####[facility]ITALNCLIA [id number] [place] [address] [place] Hematocrit (Bld) [Volume fraction] 36.8 % Low 39.0-51.0 [facility] Comment on above: Order Comment: Speci men Type: BLOOD SPECIMENOrdering Facility: [facility] Address: [address] [place] [address] Performed By: #### 5 7021-8 ####[facility] [id number] [place] [address] [place] Hemoglobin (Bld) [Mass/Vol] 11.9 g/dL Low 13.0-17.0 [facility] Comment on above: Order Comment: Speci men Type: BLOOD SPECIMENOrdering Facility: [facility] Address: [address] [place] [address] Performed By: #### 5 7021-8 ####[facility] MILLTOWNCLIA [id number] [place] [address] [place] Immature granulocytes (Bld) [#/Vol] 10*3/uL Normal <0.10 [facility] Comment on above: Order Comment: Speci men Type: BLOOD SPECIMENOrdering Facility: [facility] Address: [address] [place] [address] Performed By: #### 5 7021-8 ####[facility] FOSTERWNCLIA [id number] [place] [address] [place] Immature granulocytes/100 WBC (Bld) 0.4 % Normal [facility] Comment on above: Order Comment: Speci men Type: BLOOD SPECIMENOrdering Facility: [facility] Address: [address] [place] [address] Performed By: #### 5 7021-8 ####[facility] MATILDAWNCLIA [id number] [place] [address] [place] Lymphocytes (Bld) [#/Vol] 1.31 10*3/uL Normal 1.00-4.00 [facility] Comment on above: Order Comment: Speci men Type: BLOOD SPECIMENOrdering Facility: [facility] Address: [address] [place] [address] Performed By: #### 5 7021-8 ####[facility] MILLTOWNCLIA [id number] [place] [address] [place] Lymphocytes/100 WBC (Bld) 24.5 % Normal [facility] Comment on above: Order Comment: Speci men Type: BLOOD SPECIMENOrdering Facility: [facility] Address: [address] [place] [address] Performed By: #### 5 7021-8 ####[facility] MILLTOWNCLIA [id number] [place] [address] [place] MCH (RBC) [Entitic mass] 32.3 pg Normal 26.0-34.0 [facility] Comment on above: Order Comment: Speci men Type: BLOOD SPECIMENOrdering Facility: [facility] Address: [address] [place] [address] Performed By: #### 5 7021-8 ####[facility] [id number] [place] [address] [place] MCHC (RBC) [Mass/Vol] 32.3 g/dL Normal 30.5-36.0 [facility] Comment on above: Order Comment: Speci men Type: BLOOD SPECIMENOrdering Facility: [facility] Address: [address] [place] [address] Performed By: #### 5 7021-8 ####[facility] [id number] [place] [address] [place] MCV (RBC) [Entitic vol] 100.0 fL Normal 80.0-100.[address] [facility] Comment on above: Order Comment: Speci men Type: BLOOD SPECIMENOrdering Facility: [facility] Address: [address] [place] [address] Performed By: #### 5 7021-8 ####[facility] [id number] [place] [address] [place] Monocytes (Bld) [#/Vol] 0.44 10*3/uL Normal <0.87 [facility] Comment on above: Order Comment: Speci men Type: BLOOD SPECIMENOrdering Facility: [facility] Address: [address] [place] [address] Performed By: #### 5 7021-8 ####[facility]OSPITALNCSHRINERS H[facility]ITALS FOR CHILDREN [id number] [place] [address] [place] Monocytes/100 WBC (Bld) 8.2 % Normal [facility] Comment on above: Order Comment: Speci men Type: BLOOD SPECIMENOrdering Facility: [facility] Address: [address] [place] [address] Performed By: #### 5 7021-8 ####[facility] [id number] [place] [address] [place] Neutrophils (Bld) [#/Vol] 3.41 10*3/uL Normal 1.45-7.50 [facility] Comment on above: Order Comment: Speci men Type: BLOOD SPECIMENOrdering Facility: [facility] Address: [address] [place] [address] Performed By: #### 5 7021-8 ####[facility] [id number] [place] [address] [place] Neutrophils/100 WBC (Bld) 63.7 % Normal [facility] Comment on above: Order Comment: Speci men Type: BLOOD SPECIMENOrdering Facility: [facility] Address: [address] [place] [address] Performed By: #### 5 7021-8 ####[facility] [id number] [place] [address] [place] Nucleated RBC (Bld) [#/Vol] 10*3/uL Normal <0.01 [facility] Comment on above: Order Comment: Speci men Type: BLOOD SPECIMENOrdering Facility: [facility] Address: [address] [place] [address] Performed By: #### 5 7021-8 ####[facility] [id number] [place] [address] [place] Nucleated RBC/100 WBC (Bld) [Ratio] 0.0 /100 WBC Normal [facility] Comment on above: Order Comment: Speci men Type: BLOOD SPECIMENOrdering Facility: [facility] Address: [address] [place], [place] [id number] Performed By: #### 5 7021-8 ####[facility] PAMELANCSVITLANA [id number] [place] [address] [place] Platelet mean volume (Bld) [Entitic vol] 11.6 fL Normal 9.0-12.7 [facility] Comment on above: Order Comment: Speci men Type: BLOOD SPECIMENOrdering Facility: [facility] Address: [address] [place] [address] Performed By: #### 5 7021-8 ####[facility] HOS[facility]ITALNCSVITLANA [id number] [place] [address] [place] Platelets (Bld) [#/Vol] 164 10*3/uL Normal 150-400 [facility] Comment on above: Order Comment: Speci men Type: BLOOD SPECIMENOrdering Facility: [facility] Address: [address] [place] [address] Performed By: #### 5 7021-8 ####[facility] HOSPITALNCROSAURAA [id number] [place] [address] [place] RBC (Bld) [#/Vol] 3.68 10*6/uL Low 4.20-6.00 [facility] Comment on above: Order Comment: Speci men Type: BLOOD SPECIMENOrdering Facility: [facility] Address: [address] [place], [place] [id number] Performed By: #### 5 7021-8 ####[facility]ITALNCLIA [id number] [place] [address] [place] WBC (Bld) [#/Vol] 5.35 10*3/uL Normal 3.70-11.00 [facility] Comment on above: Order Comment: Speci men Type: BLOOD SPECIMENOrdering Facility: [facility] Address: [address] [place] [address] Performed By: #### 5 7021-8 ####[facility] ANDRES VEGA [id number] [place] [address] [place] CNOVSPon 04-12-2024 CNOVSP Visit (SP) Office ([facility]) ANALILIA MELENDREZ ([id number]) 1960 M Date Time Provider Department 04/12/24 10:00 AM VANDANA EDWARDS During your visit today, we recorded the following information about you: Temperature Pulse Blood pressure Weight 97.1 degrees 60/minute 172/110 65.3 kg Vandana Edwards 04/13/2024 11:09 AM Signed Progress Note Analilia Melendrez 1960 Encounter date: 04/12/2024 HPI: Analilia Melendrez is a 63 year old male with PMHx, CKD, Aortic aneurysm, chronic pancreatitis, cirrhosis, T2DM, alcohol abuse, nicotine dependence. Pt referred by PCP, Marianna Wagner for evaluation of anemia. Mr. Melendrez presents today with family. He reports feeling ok. Denies fevers, chills or NS. Denies bony aches or pains. No rash, skin changes or neuropathy. Endorses lack of appetite, unintentional weight loss over the last few months. Now chronic diarrhea at min 6 times per day, orange. Occasionally bloody. On a bad day >10x per day. This has been ongoing for several months. Tested positive for cdiff 10/13/2024. He believes he took all abx as prescribed. He did not notice any difference in diarrhea. He states that he was unaware that he had c diff. Had to cancel last GI visit as he did not have a ride. He states he was told to go to the ED if no improvements however no further work up was performed. No colonoscopy or EDG in the last 20 years. He has been told that he had bleeding ulcers. Denies dark or tarry stools. Denies abd pains. Denies hematuria, hematemesis. No urinary issues. No SOB, CP, palpitations. Occasional headaches, uses NSAIDs. Occasional reflux. He was in residential for 6 weeks in june for rehab from seizure/TIA. Tolerating PO iron. No personal or family hx or bleeding disorders. Brother hx of leukemia. Interval Hx: Mr. Melendrez presents today for follow up and lab review. He denies any new issues. Had scopes last week. A few biopsies taken, no malignancy. He notes that he had poor prep and will need to repeat scopes in 1 year. Chronic pancreatis. Denies any current alcohol use. No bleeding, denies hematuria. No dark or tarry stools. Continues to have diarrhea, taking pancreatic enzymes though he states he's not sure they help any. Denies bleeding. Mostly orange. No fevers, chills or NS. Fatigue is generally stable. No neuropathy. Appetite is good. Reports that he drinks coffee all day. He believes he took his BP medication this morning, but can't be sure. He thinks they are in his pill container. States he has had headaches for a long time. No other symptoms. PAST MEDICAL HISTORY Diagnosis Date Alcohol-induced chronic pancreatitis (HCC) Anxiety Aortic aneurysm (HCC) S/P Repair Aortic valve disorder S/P Replacement CAD (coronary artery disease) nonobstructive Chronic kidney disease, stage III (moderate) (HCC) Clostridioides difficile infection Coronary artery disease Depression Diabetes mellitus, type II (HCC) Insulin dependent History of alcohol abuse Hx of ascending aorta repair Hyperlipidemia Hypertension Non-ST elevation [place] (NSTEMI) (HCC) 06/24 Pacemaker Paroxysmal atrial fibrillation (HCC) RBBB (right bundle branch block) S/P aortic valve replacement [facility] mechanical Syncope Tachy-fernando syndrome (HCC) Tobacco abuse chronic Tobacco user Type 2 diabetes mellitus (HCC) PAST SURGICAL HISTORY Procedure Laterality Date ABD AORTIC ANEURYSM REPAIR ASCENDING AORTA GRAFT W/AORTIC ROOT COLONOSCOPY SCREENING In [place] COLONOSCOPY SCREENING 04/05/2024 Internal hemorrhoids, poor prep CORONARY ARTERY BYPASS GRAFT HX 2016 2005 EGD W/O [facility] SPEC VARICIES INJ 04/05/2024 Antral and fundic mucosa with minimal chronic inflammation HEART CATHETERIZATION 06/24/2016 HEART VALVE REPLACEMENT 2017 Aortic x2 ;2014 HERNIA REPAIR HX PACEMAKER 06/25/2016 REPLACEMENT AORTIC VALVE W BYPASS Current Outpatient Medications Medication Sig Dispense Refill atorvastatin (LIPITOR) 40 mg tablet TAKE ONE TABLET BY MOUTH EVERY DAY 30 tablet 0 metoprolol tartrate, short acting, (LOPRESSOR) 50 mg tablet TAKE ONE TABLET BY MOUTH TWICE A DAY 60 tablet 0 ramipril (ALTACE) 10 mg capsule TAKE ONE CAPSULE BY MOUTH EVERY DAY 30 capsule 0 insulin glargine 100 unit/mL (3 mL) Inject 15 Units subcutaneously once daily. (Patient taking differently: Inject 10 Units subcutaneously once daily.) 1 Each 0 metFORMIN ER (GLUCOPHAGE XR) 500 mg 24 hr tablet Take 2 tablets by mouth daily with breakfast. [address] (PROTONIX) 40 mg tablet TAKE ONE TABLET BY MOUTH TWICE A DAY 30 MINUTES BEFORE EATING 60 tablet 2 FARXIGA 10 mg tablet Take 1 tablet by mouth daily with breakfast. 90 tablet 1 ferrous sulfate (FEROSUL) 325 mg (65 mg iron) tablet TAKE ONE TABLET BY MOUTH EVERY DAY 90 tablet 1 yifidp-xvdmwluq-nvqaujt (CREON 36) 36,000-1 (more content not included)... Normal [facility] ANES POSTPROC EVALon 025 ANES POSTPROC EVAL HNO ID: [id number] Author: LUCAS SAHU MD Service: Anesthesiology Author Type: Anesthesiologist Type: Anesthesia Postprocedure Evaluation Filed: 04/05/2024 13:44 Note Text: POST ANESTHESIA EVALUATION NOTE : 1960 Procedure Summary Date: 04/05/24 Room / Location: [facility] Endoscopy Anesthesia Start: 1215 Anesthesia Stop: 1256 Procedures: COLONOSCOPY DIAGNOSTIC EGD DIAGNOSTIC Diagnosis: Anemia, unspecified type Weight loss Chronic pancreatitis, unspecified pancreatitis type (HCC) Epigastric pain (Iron deficiency anemia) (Iron deficiency anemia) Scheduled Providers: Phoebe Vazquez MD; Trenton Amaral MD; Lucas Delarosa APRN.ENGINEERING LAB TECHNICIAN Responsible Provider: Román Vazquez MD Anesthesia Type: MAC ASA Status: 4 Anesthesia Type: MAC Last Vitals Vitals Value Taken Time BP 118/75 04/05/24 1320 Temp 36.1 ?C (97 ?F) 04/05/24 1300 HR SpO2 65 04/05/24 1320 Resp 16 04/05/24 1320 SpO2 97 % 04/05/24 1320 Post Anesthesia Patient Status Patient Evaluation: bedside. Anticipated Disposition: phase 2 then home. Neurological Status: aware and responsive. Pulmonary Status: breathing comfortably on room air Airway Control: returned to baseline unsupported. Cardiovascular Status: stable. Pain Management: clinically adequate Postoperative Hydration: acceptable. Intraoperative Events: no significant anesthesia events Post Operative Nausea/Vomiting Status: no significant post operative nausea or vomiting Recommendation: continue current plan of care. Anesthesia Observations No Documentation SIGNATURE: Lucas Sahu MD PATIENT NAME: Analilia Melendrez DATE: April 05, 2024 TIME: 1:44 PM CSN: [id number] Normal [facility] ANES PRE-OPon 04-05-2024 ANES PRE-OP HNO ID: [id number] Author: TRENTON AMARAL MD Service: ? Author Type: Anesthesiologist Type: Anesthesia Preprocedure Evaluation Filed: 04/05/2024 12:16 Note Text: ANESTHESIOLOGY DAY OF SURGERY NOTE : 1960 Procedure Information Date/Time: 04/05/24 1415 Scheduled providers: Phoebe Vazquez MD; Trenton Amaral MD; Lucas Delarosa APRN.ENGINEERING LAB TECHNICIAN Procedures: COLONOSCOPY DIAGNOSTIC EGD DIAGNOSTIC Location: [facility] Endoscopy Estimated body mass index is 18.97 kg/m? as calculated from the following: Height as of 12/27/23: 180.3 cm (5' 11). Weight as of 12/27/23: 61.7 kg (136 lb). Most recent hematocrit and potassium results: Hematocrit 31.8 10/15/2023 Potassium 4.8 10/15/2023 Relevant Problems CARDIO (+) Acute thoracic aortic dissection (HCC) (+) Aortic aneurysm (HCC) (+) Atherosclerotic heart disease of robinson coronary artery without angina pectoris (+) Old myocardial infarction (+) Pacemaker (+) Pansystolic murmur (+) Primary hypertension (+) Tachy-fernando syndrome (HCC) ENDO (+) Type 2 diabetes mellitus with complication, with long-term current use of insulin (HCC) GI (+) GERD (gastroesophageal reflux disease) (+) Hiatal hernia -RENAL (+) Acute kidney failure, unspecified (HCC) (+) 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) (+) Cirrhosis of liver (HCC) (+) Hepatic steatosis NEURO-PSYCH (+) Acute headache (+) History of TIA (transient ischemic attack) (+) History of alcohol abuse (+) History of depression (+) History of dissection of thoracic aorta (+) History of kidney stones (+) History of pacemaker I - PHYSICAL EVALUATION AIRWAY Patient intubated: No. Tracheostomy tube not present Mallampati: II. TM distance: >3 FB. Neck ROM: full ROM without neurological symptoms. Mouth opening: adequate. Short neck: no. Thick neck: no DENTAL Dental findings: edentulous. II - ANESTHESIA PLAN ASA Score: 4 Anesthetic Plan: MAC The patient is not a current smoker. NPO Status: adequate Beta Thiago Monitoring Plan Monitoring plan: standard ASA. Post Procedure Analgesic Plan Postoperative analgesic plan: other. Informed Consent Anesthetic risks, benefits, alternatives, personnel and consent discussed: yes. Patient / Responsible Democrat agrees to proceed: yes Patient / Surrogate agrees to blood products: Yes DNR status not reviewed with patient and/or family prior to surgery. Significant changes in the patient condition since the History and Physical, not otherwise documented in primary service progress note: no. Potential Anesthesia issues that may suggest increased risk of complications or contraindication to planned procedure: none. No vitals data found for the desired time range. Outpatient Medications as of 04/05/2024 Medication Sig FARXIGA 10 mg tablet Take 1 tablet by mouth daily with breakfast. insulin glargine 100 unit/mL (3 mL) Inject 15 Units subcutaneously once daily. metFORMIN ER (GLUCOPHAGE XR) 500 mg 24 hr tablet Take 2 tablets by mouth daily with breakfast. atorvastatin (LIPITOR) 40 mg tablet Take 1 tablet by mouth once daily. metoprolol tartrate, short acting, (LOPRESSOR) 50 mg tablet Take 1 tablet by mouth two times a day. ramipril (ALTACE) 10 mg capsule Take 1 capsule by mouth once daily. pantoprazole DR (PROTONIX) 40 mg tablet TAKE ONE TABLET BY MOUTH TWICE A DAY 30 MINUTES BEFORE EATING UNIFINE PENTIPS 31 gauge x /16 USE ONE 3 TIMES DAILY ferrous sulfate (FEROSUL) 325 mg (65 mg iron) tablet TAKE ONE TABLET BY MOUTH EVERY DAY Blood-Glucose Sensor (FREESTYLE MANGO 3 SENSOR) daniel Apply new sensor every fourteen (14) days to upper arm. ixffed-avasayns-xbslvwh (CREON 36) 36,000-114,000- 180,000 unit delayed release capsule Take 2 pills by mouth with first bite of meal and take 1 pill with snacks. Max 10 per day. Cholecalciferol, Vitamin D3, (VITAMIN D-3) 50 mcg (2,000 unit) cap Take 1 capsule by mouth once daily. Blood-Glucose Meter,Continuous (FREESTYLE MANGO 3 READER) [facility] Use to check blood sugar at least four (4) times daily. dicyclomine (BENTYL) 10 mg capsule Take 1 capsule by mouth before meals and at bedtime. MULTIVITAMIN ORAL Take 1 tablet by mouth once daily. Facility-Administered Medications as of 04/05/2024 Medication Dose Route Frequency lidocaine (PF) 10 mg/mL (1 %) 1-2 mg injection (XYLOCAINE) 0.1-0.2 mL INTRADERMAL PRN lactated ringers iv infusion 30 mL/hr INTRAVENOUS CONTINUOUS I have interviewed and examined the patient. I have reviewed the medical record and/or the pre-anesthesia evaluation, pertinent labs, and test results. This contains updated information obtained within 48 hours of Surgery/Procedure. SIGNATURE: Trenton Amaral MD PATIENT NAME: Analilia Melendrez DATE: April 05, 2024 TIME: 11:39 AM CSN: [id number] Normal [facility] Colonoscopyon 04-05-2024 Colonoscopy [facility] Gastrointestinal Endoscopy Patient Name: Analilia Melendrez Procedure Date: 04/05/2024 12:31 PM Date of : 1960 Admit Type: Outpatient Age: 63 Room: [facility] Gender: Male Note Status: Finalized Attending MD: Phoebe Vazquez MD, [id number] Procedure: Colonoscopy Indications: Iron deficiency anemia Providers: Phoebe Vazquez MD Patient Profile: Refer to note in patient chart for documentation of history and physical. Last Colonoscopy: none. The patient's first colonoscopy is today. Referring Physician: Susana Ramirez (Referring MD) Medicines: See the Anesthesia note for documentation of the administered medications Requesting Provider: Procedure: Pre-Anesthesia Assessment: - Monitored anesthesia care under the supervision of a ENGINEERING LAB TECHNICIAN was determined to be medically necessary for this procedure based on review of the patient's medical history, medications, and prior anesthesia history. After I obtained informed consent, the scope was passed under direct vision. Throughout the procedure, the patient's blood pressure, pulse, and oxygen saturations were monitored continuously. The Colonoscope was introduced through the anus and advanced to the cecum, identified by the appendiceal orifice, IC valve and transillumination. The colonoscopy was performed with difficulty due to inadequate bowel prep. The patient tolerated the procedure well. The quality of the bowel preparation was unsatisfactory. Scope Withdrawal Time: 0 hours 9 minutes 32 seconds Moderate Sedation: MAC anesthesia was administered by the anesthesia team. Total Procedure Duration: 0 hours 16 minutes 40 seconds Findings: The perianal and digital rectal examinations were normal. Non-bleeding internal hemorrhoids were found. Impression: - Preparation of the colon was unsatisfactory. - Non-bleeding internal hemorrhoids. - No specimens collected. Recommendation: - Resume previous diet. - Patient has a contact number available for emergencies. The signs and symptoms of potential delayed complications were discussed with the patient. Return to normal activities tomorrow. Written discharge instructions were provided to the patient. - Continue present medications. - Repeat colonoscopy within 1 year because the bowel preparation was poor. Procedure Code(s): --- Professional --- 09328, Colonoscopy, flexible; diagnostic, including collection of specimen(s) by brushing or washing, when performed (separate procedure) Diagnosis Code(s): --- Professional --- D50.9, Iron deficiency anemia, unspecified K64.8, Other hemorrhoids CPT copyright 2020 [employer]. All rights reserved. The codes documented in this report are preliminary and upon security and compliance analyst review may be revised to meet current compliance requirements. Attending Participation: I personally performed the entire procedure. Scope In: 12:34:29 PM Scope Out: 12:51:09 PM MD Phoebe Fuchs MD 04/05/2024 12:56:42 PM This report has been signed electronically by Phoebe Vazquez MD Number of Addenda: 0 Note Initiated On: 04/05/2024 12:31 PM Estimated Blood Loss: Estimated blood loss was minimal. Normal [facility] EGD Study observation Meera petty 04-05-2024 [facility] Gastrointestinal Endoscopy Patient Name: Analilia Melendrez Procedure Date: 04/05/2024 12:04 PM Date of : 1960 Admit Type: Outpatient Age: 63 Room: [facility] A Gender: Male Note Status: Finalized Attending MD: Phoebe Vazquez MD, [id number] Procedure: Upper GI endoscopy Indications: Iron deficiency anemia Providers: Phoebe Vazquez MD Patient Profile: Refer to note in patient chart for documentation of history and physical. Referring Physician: Susana Ramirez (Referring MD) Medicines: See the Anesthesia note for documentation of the administered medications Complications: No immediate complications. Requesting Provider: Procedure: Pre-Anesthesia Assessment: - Monitored anesthesia care under the supervision of a ENGINEERING LAB TECHNICIAN was determined to be medically necessary for this procedure based on review of the patient's medical history, medications, and prior anesthesia history. After obtaining informed consent, the endoscope was passed under direct vision. Throughout the procedure, the patient's blood pressure, pulse, and oxygen saturations were monitored continuously. The Endoscope was introduced through the mouth, and advanced to the second part of duodenum. The upper GI endoscopy was accomplished without difficulty. The patient tolerated the procedure well. Moderate Sedation: MAC anesthesia was administered by the anesthesia team. Total Procedure Duration: 0 hours 5 minutes 55 seconds Findings: The first portion of the duodenum and second portion of the duodenum were normal. Biopsies for histology were taken with a cold forceps for evaluation of celiac disease. Verification of patient identification for the specimen was done by the nurse. Estimated blood loss was minimal. Localized mildly erythematous mucosa without bleeding was found in the gastric antrum. Biopsies were taken with a cold forceps for Helicobacter pylori testing. Verification of patient identification for the specimen was done by the nurse. Estimated blood loss was minimal. The Z-line was minimally irregular. Biopsies were taken with a cold forceps for histology of GE junction and midesophagus. Verification of patient identification for the specimen was done by the nurse. Estimated blood loss was minimal. Impression: - Normal first portion of the duodenum and second portion of the duodenum. Biopsied. - Erythematous mucosa in the antrum. Biopsied. - Z-line irregular. Biopsied. Recommendation: - Discharge patient to home (ambulatory). - Resume previous diet. - Await pathology results. - - Follow up with Ramy Daly NP, may be via televisit for discussion of pathology results Procedure Code(s): --- Professional --- 96637, Esophagogastroduodenosc opy, flexible, transoral; with biopsy, single or multiple Diagnosis Code(s): --- Professional --- D50.9, Iron deficiency anemia, unspecified K22.89, Other specified disease of esophagus K31.89, Other diseases of stomach and duodenum CPT copyright 2020 [employer]. All rights reserved. The codes documented in this report are preliminary and upon security and compliance analyst review may be revised to meet current compliance requirements. Attending Participation: I personally performed the entire procedure. Scope In: 12:23:40 PM Scope Out: 12:29:35 PM MD Phoebe Fuchs MD 04/05/2024 12:33:21 PM This report has been signed electronically by Phoebe Vazquez MD Number of Addenda: 0 Note Initiated On: 04/05/2024 12:04 PM Estimated Blood Loss: Estimated blood loss was minimal. PROVATION [facility] Radiology Study observation (narrative) [facility] Flexible sigmoidoscopy study on 04-05-2024 [facility] Gastrointestinal Endoscopy Patient Name: Analilia Melendrez Procedure Date: 04/05/2024 12:31 PM Date of : 1960 Admit Type: Outpatient Age: 63 Room: [facility] Gender: Male Note Status: Finalized Attending MD: Phoebe Vazquez MD, [id number] Procedure: Colonoscopy Indications: Iron deficiency anemia Providers: Phoebe Vazquez MD Patient Profile: Refer to note in patient chart for documentation of history and physical. Last Colonoscopy: none. The patient's first colonoscopy is today. Referring Physician: Susana Ramirez (Referring MD) Medicines: See the Anesthesia note for documentation of the administered medications Requesting Provider: Procedure: Pre-Anesthesia Assessment: - Monitored anesthesia care under the supervision of a ENGINEERING LAB TECHNICIAN was determined to be medically necessary for this procedure based on review of the patient's medical history, medications, and prior anesthesia history. After I obtained informed consent, the scope was passed under direct vision. Throughout the procedure, the patient's blood pressure, pulse, and oxygen saturations were monitored continuously. The Colonoscope was introduced through the anus and advanced to the cecum, identified by the appendiceal orifice, IC valve and transillumination. The colonoscopy was performed with difficulty due to inadequate bowel prep. The patient tolerated the procedure well. The quality of the bowel preparation was unsatisfactory. Scope Withdrawal Time: 0 hours 9 minutes 32 seconds Moderate Sedation: MAC anesthesia was administered by the anesthesia team. Total Procedure Duration: 0 hours 16 minutes 40 seconds Findings: The perianal and digital rectal examinations were normal. Non-bleeding internal hemorrhoids were found. Impression: - Preparation of the colon was unsatisfactory. - Non-bleeding internal hemorrhoids. - No specimens collected. Recommendation: - Resume previous diet. - Patient has a contact number available for emergencies. The signs and symptoms of potential delayed complications were discussed with the patient. Return to normal activities tomorrow. Written discharge instructions were provided to the patient. - Continue present medications. - Repeat colonoscopy within 1 year because the bowel preparation was poor. Procedure Code(s): --- Professional --- 33158, Colonoscopy, flexible; diagnostic, including collection of specimen(s) by brushing or washing, when performed (separate procedure) Diagnosis Code(s): --- Professional --- D50.9, Iron deficiency anemia, unspecified K64.8, Other hemorrhoids CPT copyright 2020 [employer]. All rights reserved. The codes documented in this report are preliminary and upon security and compliance analyst review may be revised to meet current compliance requirements. Attending Participation: I personally performed the entire procedure. Scope In: 12:34:29 PM Scope Out: 12:51:09 PM MD Phoebe Fuchs MD 04/05/2024 12:56:42 PM This report has been signed electronically by Phoebe Vazquez MD Number of Addenda: 0 Note Initiated On: 04/05/2024 12:31 PM Estimated Blood Loss: Estimated blood loss was minimal. [facility]ATION [facility] Radiology Study observation (narrative) [facility] GLUCOSE, BLOOD (POC)on 04-05 Glucose [Mass/Vol] 198 mg/dL Abnormal 74 - 99 mg/dL [facility] Comment on above: Location:[address], [address] The Accu-Chek Inform II glucose meter has not been approved for testing on patients receiving intensive medical intervention or therapy and results from this point of care glucose test should not be used for patient management decisions in these cases. Inaccurate results may also occur from other interfering factors, such as N-acetylcysteine (blood concentrations of greater than 5mg/dL), galactose, extremes of hematocrit (<10 or >65), or high doses of ascorbic acid (vitamin C) greater than 3mg/dL. Consider alternate testing mechanisms (e.g. core lab, blood gas instrument) in the above situations. Interpretation and review of laboratory results Abnormal [facility] HISTORY PHYSICALon HISTORY PHYSICAL HNO ID: [id number] Author: PHOEBE VAZQUEZ MD Service: General Surgery Author Type: Physician Type: H&P Filed: 04/05/2024 12:10 Note Text: HPI: Analilia Melendrez is a 63 year old male with hx of AVR (bovine), pacemaker, DMII, HTN, chronic pancreatitis, GERD, HLD, CAD who presents for Anemia (Diarrhea and blood in the stool). He is anemic with hgb 10/hct 31.8 with macrocytic indices. He has had more fatigue and SOB. He has had epigastric pain for the past 6 months and it radiates to his back. If he is hungry, it hurts worse. He is losing a lot of weight (20 pounds over the past 6 months). He has no appetite. Denies any nausea or vomiting. Has diarrhea all the time and it is like bile. Denies any gerd or heartburn. No hx of PUD. No prior EGD. Last colonoscopy was many years ago and he states he had several polyps. CT pancreas 12/08/23 that showed changes of chronic pancreatitis; no identifiable pancreatic mass. He did have c.diff and was treated for this. Record Review: [facility] / Outside records reviewed. Latest Ref Rng 10/15/2023 WBC 3.70 - 11.00 k/uL 4.67 RBC 4.20 - 6.00 m/uL 2.68 (L) Hemoglobin 13.0 - 17.0 g/dL 10.0 (L) Hematocrit 39.0 - 51.0 % 31.8 (L) MCV 80.0 - 100.0 fL 118.7 (H) MCH 26.0 - 34.0 pg 37.3 (H) MCHC 30.5 - 36.0 g/dL 31.4 RDW-CV 11.5 - 15.0 % 13.3 Platelet Count 150 - 400 k/uL 202 MPV 9.0 - 12.7 fL 11.6 NRBC /100 WBC 0.0 Absolute nRBC <0.01 k/uL <0.01 Neut% % 49.0 Abs Neut (ANC) 1.45 - 7.50 k/uL 2.29 Lymph% % 39.0 Abs Lymph 1.00 - 4.00 k/uL 1.82 Erath% % 11.0 Abs Erath <0.87 k/uL 0.51 Eosin% % 0.0 Abs Eosin <0.46 k/uL 0.00 Baso% % 0.0 Abs Baso <0.11 k/uL 0.00 Myelo% % 1.0 Left Shift Present Platelet Estimate Adequate Red Cell Morph Reviewed: see results of individual morphologies Ovalocytes Few RBC Fragments None Seen Few ! DTYPE Manual Protein, Total 6.3 - 8.0 g/dL 5.2 (L) Albumin 3.9 - 4.9 g/dL 2.4 (L) Calcium 8.5 - 10.2 mg/dL 7.9 (L) Bilirubin, Total 0.2 - 1.3 mg/dL <0.2 (L) Alkaline Phosphatase 38 - 113 U/L 134 (H) AST 14 - 40 U/L 64 (H) ALT 10 - 54 U/L 26 Glucose 74 - 99 mg/dL 130 (H) BUN 9 - 24 mg/dL 14 Creatinine 0.73 - 1.22 mg/dL 1.55 (H) Sodium 136 - 144 mmol/L 142 Potassium 3.7 - 5.1 mmol/L 4.8 Chloride 98 - 107 mmol/L 103 CO2 22 - 30 mmol/L 28 Anion Gap 8 - 15 mmol/L 11 eGFR >=60 mL/min/1.73m? 51 (L) Iron 41 - 186 ug/dL 96 TIBC 232 - 386 ug/dL <113 (L) Transferrin Saturation 15.0 - 57.0 % >85.0 (H) Ferritin 30.3 - 565.7 ng/mL 630.0 (H) Folate >4.7 ng/mL 16.4 Vitamin B12 232 - 1,245 pg/mL 1,514 (H) Legend: (L) Low (H) High ! Abnormal PAST MEDICAL HISTORY PAST MEDICAL HISTORY Diagnosis Date Alcohol-induced chronic pancreatitis (HCC) Anxiety Aortic aneurysm (HCC) S/P Repair Aortic valve disorder S/P Replacement CAD (coronary artery disease) nonobstructive Chronic kidney disease, stage III (moderate) (HCC) Clostridioides difficile infection Coronary artery disease Depression Diabetes mellitus, type II (HCC) Insulin dependent History of alcohol abuse Hx of ascending aorta repair Hyperlipidemia Hypertension Non-ST elevation [place] (NSTEMI) (HCC) 06/24 Pacemaker Paroxysmal atrial fibrillation (HCC) RBBB (right bundle branch block) S/P aortic valve replacement [facility] mechanical Syncope Tachy-fernando syndrome (HCC) Tobacco abuse chronic Tobacco user Type 2 diabetes mellitus (HCC) PAST SURGICAL HISTORY PAST SURGICAL HISTORY Procedure Laterality Date ABD AORTIC ANEURYSM REPAIR ASCENDING AORTA GRAFT W/AORTIC ROOT COLONOSCOPY SCREENING In [place] CORONARY ARTERY BYPASS GRAFT HX 2016 2005 HEART CATHETERIZATION 06/24/2016 HEART VALVE REPLACEMENT 2017 Aortic x2 ;2014 HERNIA REPAIR HX PACEMAKER 06/25/2016 REPLACEMENT AORTIC VALVE W BYPASS Allergies: ALLERGIES ALLERGIES No Known Allergies Medications: CURRENT MEDICATIONS Insulin [place], Disposable, (BD ULTRA-FINE NORBERTO PEN NEEDLE) 32 gauge x 5/32 1 Each three times a day. metFORMIN (GLUCOPHAGE) 500 mg tablet Take 1 tablet by mouth daily with breakfast. Cholecalciferol, Vitamin D3, (VITAMIN D-3) 50 mcg (2,000 unit) cap Take 1 capsule by mouth once daily. ferrous sulfate 325 mg (65 mg iron) tablet Take 1 tablet by mouth once daily. Blood-Glucose Meter,Continuous (FREESTYLE MANGO 3 READER) [facility] Use to check blood sugar at least four (4) times daily. Blood-Glucose Sensor (FREESTYLE MANGO 3 SENSOR) daniel Apply new sensor every fourteen (14) days to upper arm. FARXIGA 10 mg tablet Take 1 tablet by mouth daily with breakfast. insulin glargine 100 unit/mL (3 mL) Inject 10 Units subcutaneously once daily. metoprolol tartrate, short acting, (LOPRESSOR) 50 mg tablet Take 1 tablet by mouth two times a day. ramipril (ALTACE) 10 mg capsule Take 10 mg by mouth once daily. pantoprazole DR (PROTONIX) 40 mg tablet Take 1 tablet by mouth two times a day. 30 minutes before eating. dicyc (more content not included)... [facility] Pathology biopsy report Jose Carlos (Tiss)on 04-05-2024 AP DISCLAIMER [facility] Comment on above: Order Comment: Speci men Type: TISSUE SPECIMEN Ordering Facility: [facility] Address: [address] [place] [address] Result Comment: Etienne Montano Test (LDT) Disclaimer: Performance characteristics of immunohistochemical, immunofluorescent, and chromogenic in-situ hybridization tests have been determined by the performing laboratory within [facility]'s [facility] Pathology and Laboratory Medicine Department ([facility], [facility], [facility], [facility], [facility], [facility], or [facility]) in a manner consistent with CLIA requirements. One or more of these tests may not have been cleared or approved by the FDA. [facility] is regulated under CLIA as qualified to perform high-complexity testing. These tests are used for clinical purposes. These should not be regarded as investigational or for research. Positive and negative controls stain appropriately. Performed By: #### 6 6121-5 #### [facility] CLIA [id number] [address] [place] [address] [place] [facility] CLIA [id number] [address] [place] [address] [place] CASE REPORT Normal [facility] Comment on above: Order Comment: Speci men Type: TISSUE SPECIMEN Ordering Facility: [facility] Address: [address] [place] [address] Result Comment: Surg [facility] Pathology Report Case: [id number] Authorizing Provider: Phoebe Vazquez MD Collected: 04/05/2024 12:25 PM Ordering Location: [facility] Endoscopy Received: 04/05/2024 02:20 PM Pathologist: Cj Pham MD Specimens: A) - Small Bowel, Duodenum, Biopsy B) - Stomach, Biopsy, antrum C) - Esophagus, Mid, Biopsy D) - Esophagogastric Junction, Biopsy E) - Colon, Biopsy Performed By: #### 6 6121-5 #### [facility] CLIA [id number] [address] [place] [address] [place] [facility] CLIA [id number] [address] [place] [address] [facility] FINAL DIAGNOSIS Normal [facility] Comment on above: Order Comment: Speci men Type: TISSUE SPECIMEN Ordering Facility: [facility] Address: [address] [place] [address] Result Comment: A. S mall bowel, biopsy: - Duodenal mucosa with no significant pathologic changes. B. Stomach, biopsy: - Antral and fundic mucosa with minimal chronic inflammation. - No evidence of H. pylori. C. Mid esophagus, biopsy: - Squamous mucosa with no significant pathologic changes. D. Esophagogastric junction, biopsy: - Reactive squamous mucosa and inflamed cardiac mucosa. - No evidence of intestinal metaplasia or dysplasia. E. Colon, biopsy: - Colonic mucosa with no significant pathologic changes. at 1313 EST Performed By: #### 6 6121-5 #### [facility] CLIA [id number] [address] [place] [address] OF [facility] CLIA [id number] [address] [place] [address] [place] FINAL PERFORMING LAB Normal [facility] Comment on above: Order Comment: Speci men Type: TISSUE SPECIMEN Ordering Facility: [facility] Address: [address] [place] [address] Result Comment: Diag nostic interpretation performed at: [facility], [address] [place] [address] CLIA# [id number] Business Operations Consultant: Adriane Long MD Performed By: #### 6 6121-5 #### [facility] CLIA [id number] [address] [place] [address] OF [facility] CLIA [id number] [address] [place] [address] GROSS DESCRIPTION Normal [facility] Comment on above: Order Comment: Speci [facility] Type: TISSUE SPECIMEN Ordering Facility: [facility] Address: [address] [place] [address] Result Comment: A. S mall Bowel, Duodenum, Biopsy Received in formalin are two pieces of hernandes-brown, soft tissue aggregating to 0.3 x 0.3 x 0.2 cm. Totally submitted in one cassette. B. Stomach, Biopsy Received in formalin are two pieces of hernandes, soft tissue aggregating to 0.4 x 0.3 x 0.2 cm. Totally submitted in one cassette. C. Esophagus, Mid, Biopsy Received in formalin is one piece of hernandes-davila, soft tissue measuring 0.3 x 0.2 x 0.2 cm. Totally submitted in one cassette. D. Esophagogastric Junction, Biopsy Received in formalin is one piece of hernandes-white, soft tissue measuring 0.3 x 0.2 x 0.2 cm. Totally submitted in one cassette. E. Colon, Biopsy Received in formalin are multiple pieces of hernandes-brown, soft tissue aggregating to 0.5 x 0.3 x 0.2 cm. Totally submitted in one cassette. [facility] April 05, 2024 9:22 PM Gross [place] [address] Performed By: #### 6 6121-5 #### [facility] CLIA [id number] [address] [place] [address] [place] [facility] CLIA [id number] [address] [place] [address] [place] Upper GI endoscopy 04-05-2 025 Upper GI endoscopy [facility] Gastrointestinal Endoscopy Patient Name: Analilia Melendrez Procedure Date: 04/05/2024 12:04 PM Date of : 1960 Admit Type: Outpatient Age: 63 Room: [facility] Gender: Male Note Status: Finalized Attending MD: Phoebe Vazquez MD, [id number] Procedure: Upper GI endoscopy Indications: Iron deficiency anemia Providers: Phoebe Vazquez MD Patient Profile: Refer to note in patient chart for documentation of history and physical. Referring Physician: Susana Ramirez (Referring MD) Medicines: See the Anesthesia note for documentation of the administered medications Complications: No immediate complications. Requesting Provider: Procedure: Pre-Anesthesia Assessment: - Monitored anesthesia care under the supervision of a ENGINEERING LAB TECHNICIAN was determined to be medically necessary for this procedure based on review of the patient's medical history, medications, and prior anesthesia history. After obtaining informed consent, the endoscope was passed under direct vision. Throughout the procedure, the patient's blood pressure, pulse, and oxygen saturations were monitored continuously. The Endoscope was introduced through the mouth, and advanced to the second part of duodenum. The upper GI endoscopy was accomplished without difficulty. The patient tolerated the procedure well. Moderate Sedation: MAC anesthesia was administered by the anesthesia team. Total Procedure Duration: 0 hours 5 minutes 55 seconds Findings: The first portion of the duodenum and second portion of the duodenum were normal. Biopsies for histology were taken with a cold forceps for evaluation of celiac disease. Verification of patient identification for the specimen was done by the nurse. Estimated blood loss was minimal. Localized mildly erythematous mucosa without bleeding was found in the gastric antrum. Biopsies were taken with a cold forceps for Helicobacter pylori testing. Verification of patient identification for the specimen was done by the nurse. Estimated blood loss was minimal. The Z-line was minimally irregular. Biopsies were taken with a cold forceps for histology of GE junction and midesophagus. Verification of patient identification for the specimen was done by the nurse. Estimated blood loss was minimal. Impression: - Normal first portion of the duodenum and second portion of the duodenum. Biopsied. - Erythematous mucosa in the antrum. Biopsied. - Z-line irregular. Biopsied. Recommendation: - Discharge patient to home (ambulatory). - Resume previous diet. - Await pathology results. - - Follow up with Ramy Daly NP, may be via televisit for discussion of pathology results Procedure Code(s): --- Professional --- 68867, Esophagogastroduodenosc opy, flexible, transoral; with biopsy, single or multiple Diagnosis Code(s): --- Professional --- D50.9, Iron deficiency anemia, unspecified K22.89, Other specified disease of esophagus K31.89, Other diseases of stomach and duodenum CPT copyright 2020 [employer]. All rights reserved. The codes documented in this report are preliminary and upon security and compliance analyst review may be revised to meet current compliance requirements. Attending Participation: I personally performed the entire procedure. Scope In: 12:23:40 PM Scope Out: 12:29:35 PM MD Phoebe Fuchs MD 04/05/2024 12:33:21 PM This report has been signed electronically by Phoebe Vazquez MD Number of Addenda: 0 Note Initiated On: 04/05/2024 12:04 PM Estimated Blood Loss: Estimated blood loss was minimal. Normal [facility] 03-31-2024 CNPN Telephone (IVANIA) ANALILIA MELENDREZ ([id number]) 1960 M Date Time Provider Department 03/31/24 PHOEBE VAZQUEZ During your visit today, we recorded the following information about you: Sigrid Arias, ELIS 03/31/2024 8:47 AM Signed Patient called in and left message, would like to speak to someone regarding medication and prep prior to procedure next week. Attempted callback, no answer, LVM with CB number to office Allergies As of Date: 03/31/2024 (No Known Allergies) Date Reviewed: 12/27/2023 Reviewed by: Marianna Wagner APRN.[facility] - Fully Assessed Reason for Visit: Returning Patient's Call [[id number]] Prescriptions as of 03/31/2024 - insulin glargine 100 unit/mL (3 mL) Inject 15 Units subcutaneously once daily. - metFORMIN ER (GLUCOPHAGE XR) 500 mg 24 hr tablet Take 2 tablets by mouth daily with breakfast. - atorvastatin (LIPITOR) 40 mg tablet Take 1 tablet by mouth once daily. - metoprolol tartrate, short acting, (LOPRESSOR) 50 mg tablet Take 1 tablet by mouth two times a day. - ramipril (ALTACE) 10 mg capsule Take 1 capsule by mouth once daily. - pantoprazole DR (PROTONIX) 40 mg tablet TAKE ONE TABLET BY MOUTH TWICE A DAY 30 MINUTES BEFORE EATING - UNIFINE PENTIPS 31 gauge x 16 USE ONE 3 TIMES DAILY - FARXIGA 10 mg tablet Take 1 tablet by mouth daily with breakfast. - ferrous sulfate (FEROSUL) 325 mg (65 mg iron) tablet TAKE ONE TABLET BY MOUTH EVERY DAY - Blood-Glucose Sensor (FREESTYLE MANGO 3 SENSOR) daniel Apply new sensor every fourteen (14) days to upper arm. - ktzxfq-jyvdmkmd-jhonirx (CREON 36) 36,000-114,000- 180,000 unit delayed release capsule Take 2 pills by mouth with first bite of meal and take 1 pill with snacks. Max 10 per day. - Cholecalciferol, Vitamin D3, (VITAMIN D-3) 50 mcg (2,000 unit) cap Take 1 capsule by mouth once daily. - Blood-Glucose Meter,Continuous (FREESTYLE MANGO 3 READER) [facility] Use to check blood sugar at least four (4) times daily. - dicyclomine (BENTYL) 10 mg capsule Take 1 capsule by mouth before meals and at bedtime. - MULTIVITAMIN ORAL Take 1 tablet by mouth once daily. Problem List As Of Date 03/31/2024 Noted Resolved SUMMARY 03/09/2016 Acute thoracic aortic dissection (HCC) [I71.019]03/09/2016 Primary hypertension [I10] 03/09/2016 History of IVDU (intravenous drug user) [F19.90]03/09/2016 Smoking greater than 10 pack years [F17.210] 03/09/2016 History of depression [Z86.59] 03/09/2016 Type 2 diabetes mellitus with complication, wit*03/09/2016 Alcohol-induced chronic pancreatitis (HCC) [K86*03/09/2016 History of ruptured aneurysm of thoracic aorta *03/09/2016 03/10/2016 Acute headache [R51.9] 03/09/2016 History of alcohol abuse [F10.11] 03/09/2016 History of dissection of thoracic aorta [Z86.79]03/10/2016 Preop testing [Z01.818] 03/16/2016 03/20/2016 Cardiac insufficiency (HCC) [I50.9] 03/19/2016 03/26/2016 Postoperative hypotension [I95.81] 03/19/2016 03/21/2016 Pain, postoperative, acute [G89.18] 03/19/2016 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] 03/20/2016 03/26/2016 Acute respiratory failure with hypoxia (HCC) [J*03/21/2016 03/26/2016 Fluid overload [E87.70] 03/21/2016 03/22/2016 Hypoxemia [R09.02] 03/23/2016 03/26/2016 Discharge planning issues [Z75.8] 03/26/2016 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] Pacemaker [Z95.0] Adrenal nodule (HCC) [E27.9] 08/09/2023 Acute kidney failure, unspecified (HCC) [N17.9] 01/03/2017 Anemia in CKD (chronic kidney disease) [N18.9, *08/09/2023 Aortic aneurysm (HCC) [I71.9] 08/09/2023 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 Chronic pancreatitis (HCC) [K86.1] 08/09/2023 Calcium deficiency [E58] 08/09/2023 Cirrhosis of liver (HCC) [K74.60] 08/09/2023 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*08/09/2023 Cognitive communication deficit [R41.841] 05/21/2023 Depression [F32.A] 08/09/2023 Elevated liver enzymes [R74.8] 08/09/2023 GERD (gastroesophageal reflux disease) [K21.9] 08/09/2023 Hiatal hernia [K44.9] 08/09/2023 History of aortic valve replacement [Z95.2] 08/09/2023 Hepatic steatosis [K76.0] 08/09/2023 History of kidney stones [Z87.442] 08/09/2023 History of pacemaker [Z95.0] 08/09/2023 History of TIA (transient ischemic attack) [Z86*08/09/2023 Hyperlipidemia LDL goal <100 [E78.5] 08/09/2023 Hyperosmolar non-ketotic state in patient with *08/09/2023 Insomnia, unspecified [G47.00] 05/22/2023 Left ventricular hypertrophy [I51.7] 08/09/2023 Nicotine dependence, unspecified, uncomplicated* 7 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] 05/20/2023 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 Can we make sure he is rescheduled for labs and OV sometime the first week in april after he has his scopes ? Thank you, Vandana Edwards APRN.Tiara Chen 03/29/2024 1:41 PM Signed I called and spoke to Analilia who did not realize he had these appointments scheduled today, he rescheduled for 04/12/24 @ 9:45 am lab work and 10:00 am appointment Tiara Severino Allergies As of Date: 03/29/2024 (No Known Allergies) Date Reviewed: 12/27/2023 Reviewed by: Marianna Wagner APRN.[facility] - Fully Assessed Prescriptions as of 03/29/2024 - insulin glargine 100 unit/mL (3 mL) Inject 15 Units subcutaneously once daily. - metFORMIN ER (GLUCOPHAGE XR) 500 mg 24 hr tablet Take 2 tablets by mouth daily with breakfast. - atorvastatin (LIPITOR) 40 mg tablet Take 1 tablet by mouth once daily. - metoprolol tartrate, short acting, (LOPRESSOR) 50 mg tablet Take 1 tablet by mouth two times a day. - ramipril (ALTACE) 10 mg capsule Take 1 capsule by mouth once daily. - pantoprazole DR (PROTONIX) 40 mg tablet TAKE ONE TABLET BY MOUTH TWICE A DAY 30 MINUTES BEFORE EATING - UNIFINE PENTIPS 31 gauge x 3/16 USE ONE 3 TIMES DAILY - FARXIGA 10 mg tablet Take 1 tablet by mouth daily with breakfast. - ferrous sulfate (FEROSUL) 325 mg (65 mg iron) tablet TAKE ONE TABLET BY MOUTH EVERY DAY - Blood-Glucose Sensor (FREESTYLE MANGO 3 SENSOR) daniel Apply new sensor every fourteen (14) days to upper arm. - oyqmss-lxwdgpmk-mongske (CREON 36) 36,000-114,000- 180,000 unit delayed release capsule Take 2 pills by mouth with first bite of meal and take 1 pill with snacks. Max 10 per day. - Cholecalciferol, Vitamin D3, (VITAMIN D-3) 50 mcg (2,000 unit) cap Take 1 capsule by mouth once daily. - Blood-Glucose Meter,Continuous (FREESTYLE MANGO 3 READER) misc Use to check blood sugar at least four (4) times daily. - dicyclomine (BENTYL) 10 mg capsule Take 1 capsule by mouth before meals and at bedtime. - MULTIVITAMIN ORAL Take 1 tablet by mouth once daily. Problem List As Of Date 03/29/2024 Noted Resolved SUMMARY 03/09/2016 Acute thoracic aortic dissection (HCC) [I71.019]03/09/2016 Primary hypertension [I10] 03/09/2016 History of IVDU (intravenous drug user) [F19.90]03/09/2016 Smoking greater than 10 pack years [F17.210] 03/09/2016 History of depression [Z86.59] 03/09/2016 Type 2 diabetes mellitus with complication, wit*03/09/2016 Alcohol-induced chronic pancreatitis (HCC) [K86*03/09/2016 History of ruptured aneurysm of thoracic aorta *03/09/2016 03/10/2016 Acute headache [R51.9] 03/09/2016 History of alcohol abuse [F10.11] 03/09/2016 History of dissection of thoracic aorta [Z86.79]03/10/2016 Preop testing [Z01.818] 03/16/2016 03/20/2016 Cardiac insufficiency (HCC) [I50.9] 03/19/2016 03/26/2016 Postoperative hypotension [I95.81] 03/19/2016 03/21/2016 Pain, postoperative, acute [G89.18] 03/19/2016 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] 03/20/2016 03/26/2016 Acute respiratory failure with hypoxia (HCC) [J*03/21/2016 03/26/2016 Fluid overload [E87.70] 03/21/2016 03/22/2016 Hypoxemia [R09.02] 03/23/2016 03/26/2016 Discharge planning issues [Z75.8] 03/26/2016 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] Pacemaker [Z95.0] Adrenal nodule (HCC) [E27.9] 08/09/2023 Acute kidney failure, unspecified (HCC) [N17.9] 01/03/2017 Anemia in CKD (chronic kidney disease) [N18.9, *08/09/2023 Aortic aneurysm (HCC) [I71.9] 08/09/2023 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 Chronic pancreatitis (HCC) [K86.1] 08/09/2023 Calcium deficiency [E58] 08/09/2023 Cirrhosis of liver (HCC) [K74.60] 08/09/2023 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*08/09/2023 Cognitive communication deficit [R41.841] 05/21/2023 Depression [F32.A] 08/09/2023 Elevated liver enzymes [R74.8] 08/09/2023 GERD (gastroesophageal reflux disease) [K21.9] 08/09/2023 Hiatal hernia [K44.9] 08/09/2023 History of aortic valve replacement [Z95.2] 08/09/2023 Hepatic steatosis [K76.0] 08/09/2023 History of kidney stones [Z87.442] 08/09/2023 History of pacemaker [Z95.0] 08/09/2023 History of TIA (transient ischemic attack) [Z86*08/09/2023 Hyperlipidemia LDL goal <100 [E78.5] 08/09/2023 Hyperosmolar non-ketotic state in patient with *08/09/2023 Insomnia, unspecified [G47.00] 05/22/2023 Left ventricular hypertrophy [I51.7] 08/09/2023 Nicotine dependence, unspecified, uncomplicated* 7 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] 05/20/2023 correction (current) use of insulin (HCC) [Z79.4]01/03/2017 Pansystolic murmur [R01.1] 08/09/2023 Unspecifi (more content not included)... [facility] ANEESHANALILIA ([id number]) 1960 M Date Time Provider Department 03/24/24 BRANDY MOTTA During your visit today, we recorded the following information about you: Brandy Motta PA-C 03/24/2024 9:02 AM Signed TELEPHONE ENCOUNTER Analilia Aneesh's medication list was reviewed and patient was noted to be taking Farxiga per patient chart. The patient was contacted via telephone and it was discussed that the patient hold their medication 3 day(s) prior to their date of surgery. Patient confirmed understanding. Patient was also informed to reach out to their surgeon's office if they have any further questions or concerns, patient indicated understanding. SIGNATURE: Brandy Motta PA-C PATIENT NAME: Analilia Becerrildarnell DATE: March 24, 2024 Allergies As of Date: 03/24/2024 (No Known Allergies) Date Reviewed: 12/27/2023 Reviewed by: Marianna Wagner APRN.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 - Fully Assessed Prescriptions as of 03/24/2024 - atorvastatin (LIPITOR) 40 mg tablet Take 1 tablet by mouth once daily. - insulin glargine 100 unit/mL (3 mL) Inject 10 Units subcutaneously once daily. - metFORMIN (GLUCOPHAGE) 500 mg tablet Take 1 tablet by mouth daily with breakfast. - metoprolol tartrate, short acting, (LOPRESSOR) 50 mg tablet Take 1 tablet by mouth two times a day. - ramipril (ALTACE) 10 mg capsule Take 1 capsule by mouth once daily. - pantoprazole DR (PROTONIX) 40 mg tablet TAKE ONE TABLET BY MOUTH TWICE A DAY 30 MINUTES BEFORE EATING - UNIFINE PENTIPS 31 gauge x /16 USE ONE 3 TIMES DAILY - FARXIGA 10 mg tablet Take 1 tablet by mouth daily with breakfast. - ferrous sulfate (FEROSUL) 325 mg (65 mg iron) tablet TAKE ONE TABLET BY MOUTH EVERY DAY - Blood-Glucose Sensor (FREESTYLE MANGO 3 SENSOR) daniel Apply new sensor every fourteen (14) days to upper arm. - sfpvfy-czultrjc-tnuxjkz (CREON 36) 36,000-114,000- 180,000 unit delayed release capsule Take 2 pills by mouth with first bite of meal and take 1 pill with snacks. Max 10 per day. - Cholecalciferol, Vitamin D3, (VITAMIN D-3) 50 mcg (2,000 unit) cap Take 1 capsule by mouth once daily. - Blood-Glucose Meter,Continuous (FREESTYLE MANGO 3 READER) misc Use to check blood sugar at least four (4) times daily. - dicyclomine (BENTYL) 10 mg capsule Take 1 capsule by mouth before meals and at bedtime. - MULTIVITAMIN ORAL Take 1 tablet by mouth once daily. Problem List As Of Date 03/24/2024 Noted Resolved SUMMARY 03/09/2016 Acute thoracic aortic dissection (HCC) [I71.019]03/09/2016 Primary hypertension [I10] 03/09/2016 History of IVDU (intravenous drug user) [F19.90]03/09/2016 Smoking greater than 10 pack years [F17.210] 03/09/2016 History of depression [Z86.59] 03/09/2016 Type 2 diabetes mellitus with complication, wit*03/09/2016 Alcohol-induced chronic pancreatitis (HCC) [K86*03/09/2016 History of ruptured aneurysm of thoracic aorta *03/09/2016 03/10/2016 Acute headache [R51.9] 03/09/2016 History of alcohol abuse [F10.11] 03/09/2016 History of dissection of thoracic aorta [Z86.79]03/10/2016 Preop testing [Z01.818] 03/16/2016 03/20/2016 Cardiac insufficiency (HCC) [I50.9] 03/19/2016 03/26/2016 Postoperative hypotension [I95.81] 03/19/2016 03/21/2016 Pain, postoperative, acute [G89.18] 03/19/2016 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] 03/20/2016 03/26/2016 Acute respiratory failure with hypoxia (HCC) [J*03/21/2016 03/26/2016 Fluid overload [E87.70] 03/21/2016 03/22/2016 Hypoxemia [R09.02] 03/23/2016 03/26/2016 Discharge planning issues [Z75.8] 03/26/2016 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] Pacemaker [Z95.0] Adrenal nodule (HCC) [E27.9] 08/09/2023 Acute kidney failure, unspecified (HCC) [N17.9] 01/03/2017 Anemia in CKD (chronic kidney disease) [N18.9, *08/09/2023 Aortic aneurysm (HCC) [I71.9] 08/09/2023 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 Chronic pancreatitis (HCC) [K86.1] 08/09/2023 Calcium deficiency [E58] 08/09/2023 Cirrhosis of liver (HCC) [K74.60] 08/09/2023 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*08/09/2023 Cognitive communication deficit [R41.841] 05/21/2023 Depression [F32.A] 08/09/2023 Elevated liver enzymes [R74.8] 08/09/2023 GERD (gastroesophageal reflux disease) [K21.9] 08/09/2023 Hiatal hernia [K44.9] 08/09/2023 History of aortic valve replacement [Z95.2] 08/09/2023 Hepatic steatosis [K76.0] 08/09/2023 History of kidney stones [Z87.442] 08/09/2023 History of pacemaker [Z95.0] 08/09/2023 History of TIA (transient ischemic attack) [Z86*08/09/2023 Hyperlipidemia LDL goal <100 [E78.5] 08/09/2023 Hyperosmolar non-ketotic state in patient with *08/09/2023 Insomnia, unspecified [G47.00] 05/22/2023 Left ventricular hypertrophy [I51.7] 08/09/2023 Nicotine dependence, unspecified, uncomplicated* 7 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] 05/20/2023 correction (curr (more content not included)... [facility] ANALIL[facility]ELENDRE[facility] ([id number]) 1960 M Date Time Provider Department 03/24/24 PHOEBE VAZQUEZ During your visit today, we recorded the following information about you: Morenita Manuel, RN 03/24/2024 9:29 AM Signed Patient call. EGD/ Colonoscopy with Dr Vazquez 04/05/24. Has questions regarding his prep. Would like a call. Thanks [phone] (home) [phone] (cell) Jenifer Varela 03/24/2024 11:18 AM Signed Thank You Austin! Allergies As of Date: 03/24/2024 (No Known Allergies) Date Reviewed: 12/27/2023 Reviewed by: Marianna Wagner APRN.[facility] - Fully Assessed Reason for Visit: Patient Question [7095] Prescriptions as of 03/24/2024 - atorvastatin (LIPITOR) 40 mg tablet Take 1 tablet by mouth once daily. - insulin glargine 100 unit/mL (3 mL) Inject 10 Units subcutaneously once daily. - metFORMIN (GLUCOPHAGE) 500 mg tablet Take 1 tablet by mouth daily with breakfast. - metoprolol tartrate, short acting, (LOPRESSOR) 50 mg tablet Take 1 tablet by mouth two times a day. - ramipril (ALTACE) 10 mg capsule Take 1 capsule by mouth once daily. - pantoprazole DR (PROTONIX) 40 mg tablet TAKE ONE TABLET BY MOUTH TWICE A DAY 30 MINUTES BEFORE EATING - UNIFINE PENTIPS 31 gauge x 3/16 USE ONE 3 TIMES DAILY - FARXIGA 10 mg tablet Take 1 tablet by mouth daily with breakfast. - ferrous sulfate (FEROSUL) 325 mg (65 mg iron) tablet TAKE ONE TABLET BY MOUTH EVERY DAY - Blood-Glucose Sensor (FREESTYLE MANGO 3 SENSOR) daniel Apply new sensor every fourteen (14) days to upper arm. - koogoo-xqdxnyov-gcgbsxr (CREON 36) 36,000-114,000- 180,000 unit delayed release capsule Take 2 pills by mouth with first bite of meal and take 1 pill with snacks. Max 10 per day. - Cholecalciferol, Vitamin D3, (VITAMIN D-3) 50 mcg (2,000 unit) cap Take 1 capsule by mouth once daily. - Blood-Glucose Meter,Continuous (FREESTYLE MANGO 3 READER) misc Use to check blood sugar at least four (4) times daily. - dicyclomine (BENTYL) 10 mg capsule Take 1 capsule by mouth before meals and at bedtime. - MULTIVITAMIN ORAL Take 1 tablet by mouth once daily. Problem List As Of Date 03/24/2024 Noted Resolved SUMMARY 03/09/2016 Acute thoracic aortic dissection (HCC) [I71.019]03/09/2016 Primary hypertension [I10] 03/09/2016 History of IVDU (intravenous drug user) [F19.90]03/09/2016 Smoking greater than 10 pack years [F17.210] 03/09/2016 History of depression [Z86.59] 03/09/2016 Type 2 diabetes mellitus with complication, wit*03/09/2016 Alcohol-induced chronic pancreatitis (HCC) [K86*03/09/2016 History of ruptured aneurysm of thoracic aorta *03/09/2016 03/10/2016 Acute headache [R51.9] 03/09/2016 History of alcohol abuse [F10.11] 03/09/2016 History of dissection of thoracic aorta [Z86.79]03/10/2016 Preop testing [Z01.818] 03/16/2016 03/20/2016 Cardiac insufficiency (HCC) [I50.9] 03/19/2016 03/26/2016 Postoperative hypotension [I95.81] 03/19/2016 03/21/2016 Pain, postoperative, acute [G89.18] 03/19/2016 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] 03/20/2016 03/26/2016 Acute respiratory failure with hypoxia (HCC) [J*03/21/2016 03/26/2016 Fluid overload [E87.70] 03/21/2016 03/22/2016 Hypoxemia [R09.02] 03/23/2016 03/26/2016 Discharge planning issues [Z75.8] 03/26/2016 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] Pacemaker [Z95.0] Adrenal nodule (HCC) [E27.9] 08/09/2023 Acute kidney failure, unspecified (HCC) [N17.9] 01/03/2017 Anemia in CKD (chronic kidney disease) [N18.9, *08/09/2023 Aortic aneurysm (HCC) [I71.9] 08/09/2023 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 Chronic pancreatitis (HCC) [K86.1] 08/09/2023 Calcium deficiency [E58] 08/09/2023 Cirrhosis of liver (HCC) [K74.60] 08/09/2023 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*08/09/2023 Cognitive communication deficit [R41.841] 05/21/2023 Depression [F32.A] 08/09/2023 Elevated liver enzymes [R74.8] 08/09/2023 GERD (gastroesophageal reflux disease) [K21.9] 08/09/2023 Hiatal hernia [K44.9] 08/09/2023 History of aortic valve replacement [Z95.2] 08/09/2023 Hepatic steatosis [K76.0] 08/09/2023 History of kidney stones [Z87.442] 08/09/2023 History of pacemaker [Z95.0] 08/09/2023 History of TIA (transient ischemic attack) [Z86*08/09/2023 Hyperlipidemia LDL goal <100 [E78.5] 08/09/2023 Hyperosmolar non-ketotic state in patient with *08/09/2023 Insomnia, unspecified [G47.00] 05/22/2023 Left ventricular hypertrophy [I51.7] 08/09/2023 Nicotine dependence, unspecified, uncomplicated* 7 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] 05/20/2023 correction (current) use of insulin (HCC) [Z79.4]01/03/2017 Pansystolic murmur [R01.1] 08/09/2023 Unspecified severe protein-calorie malnutrition*05/20/2023 Encounter Status:Closed by JENIFER VARELA on 03/24/24 Normal [facility] HbA1c (Bld)on 03-14-2024 Average glucose Estimated from glycated hemoglobin (Bld) [Mass/Vol] 171 mg/dL Normal [facility] Comment on above: Order Comment: Gini nowak Type: BLOOD SPECIMENOrdering Facility: [facility] Address: [address] [place] [address] Result Comment: eAG: (Estimated average glucose) is a calculated value from HgbA1c and is sales representative sales manager of the average blood glucose level in the last 2-3 month period. Performed By: #### 5 [id number] ####[facility] LABIA [id number] [address] [place] OF [facility] HbA1c (Bld) [Mass fraction] 7.6 % High 4.3-5.6 [facility] Comment on above: Order Comment: Gini nowak Type: BLOOD SPECIMENOrdering Facility: [facility] Address: [address] [place] [address] Result Comment: [place] Diabetes Association guidelines indicate that patients with HgbA1c in the range 5.7-6.4% are at increased risk for development of diabetes, and intervention by lifestyle modification may be beneficial. HgbA1c greater or equal to 6.5% is considered diagnostic of diabetes. Performed By: #### 5 [id number] ####[facility] LABCLIA [id number] [address] OF [place] CNPChanel 03-13-2024 SAYRA Telephone (KI) ANALILIA MELENDREZ ([id number]) 1960 M Date Time Provider Department 03/13/24 POHEBE VAZQUEZ During your visit today, we recorded the following information about you: Suzi Haynes MA 03/13/2024 10:32 AM Signed Patient left message stating he scheduled for some procedures on 03/16/24 but does not know when to start the prep. Please advise. FLORENTINO Jackson Janie, MA 03/14/2024 11:28 AM Signed Patient left another message requesting call back regarding prep. FLORENTINO Jackson Dassia, MA 03/14/2024 2:40 PM Signed Called home phone number on file and another gentleman answered the phone and said Analilia was not at home. Will again before leaving today. Emmy Dillon MA 03/14/2024 3:55 PM Signed Spoke with patient about prep instructions. He had to cancel his appointment at [facility] and they will call him tomorrow with a reschedule at [facility]. Allergies As of Date: 03/13/2024 (No Known Allergies) Date Reviewed: 12/27/2023 Reviewed by: Marianna Wagner APRN.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 - Fully Assessed Reason for Visit: Patient Question [2077] Prescriptions as of 03/14/2024 - atorvastatin (LIPITOR) 40 mg tablet Take 1 tablet by mouth once daily. - insulin glargine 100 unit/mL (3 mL) Inject 10 Units subcutaneously once daily. - metFORMIN (GLUCOPHAGE) 500 mg tablet Take 1 tablet by mouth daily with breakfast. - metoprolol tartrate, short acting, (LOPRESSOR) 50 mg tablet Take 1 tablet by mouth two times a day. - ramipril (ALTACE) 10 mg capsule Take 1 capsule by mouth once daily. - pantoprazole DR (PROTONIX) 40 mg tablet TAKE ONE TABLET BY MOUTH TWICE A DAY 30 MINUTES BEFORE EATING - UNIFINE PENTIPS 31 gauge x 3/16 USE ONE 3 TIMES DAILY - FARXIGA 10 mg tablet Take 1 tablet by mouth daily with breakfast. - ferrous sulfate (FEROSUL) 325 mg (65 mg iron) tablet TAKE ONE TABLET BY MOUTH EVERY DAY - Blood-Glucose Sensor (FREESTYLE MANGO 3 SENSOR) daniel Apply new sensor every fourteen (14) days to upper arm. - cgmrhm-quxraqgw-vcnmxlu (CREON 36) 36,000-114,000- 180,000 unit delayed release capsule Take 2 pills by mouth with first bite of meal and take 1 pill with snacks. Max 10 per day. - Cholecalciferol, Vitamin D3, (VITAMIN D-3) 50 mcg (2,000 unit) cap Take 1 capsule by mouth once daily. - Blood-Glucose Meter,Continuous (RomotiveSTYLE MANGO 3 READER) [facility] Use to check blood sugar at least four (4) times daily. - dicyclomine (BENTYL) 10 mg capsule Take 1 capsule by mouth before meals and at bedtime. - MULTIVITAMIN ORAL Take 1 tablet by mouth once daily. Problem List As Of Date 03/13/2024 Noted Resolved SUMMARY 03/09/2016 Acute thoracic aortic dissection (HCC) [I71.019]03/09/2016 Primary hypertension [I10] 03/09/2016 History of IVDU (intravenous drug user) [F19.90]03/09/2016 Smoking greater than 10 pack years [F17.210] 03/09/2016 History of depression [Z86.59] 03/09/2016 Type 2 diabetes mellitus with complication, wit*03/09/2016 Alcohol-induced chronic pancreatitis (HCC) [K86*03/09/2016 History of ruptured aneurysm of thoracic aorta *03/09/2016 03/10/2016 Acute headache [R51.9] 03/09/2016 History of alcohol abuse [F10.11] 03/09/2016 History of dissection of thoracic aorta [Z86.79]03/10/2016 Preop testing [Z01.818] 03/16/2016 03/20/2016 Cardiac insufficiency (HCC) [I50.9] 03/19/2016 03/26/2016 Postoperative hypotension [I95.81] 03/19/2016 03/21/2016 Pain, postoperative, acute [G89.18] 03/19/2016 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] 03/20/2016 03/26/2016 Acute respiratory failure with hypoxia (HCC) [J*03/21/2016 03/26/2016 Fluid overload [E87.70] 03/21/2016 03/22/2016 Hypoxemia [R09.02] 03/23/2016 03/26/2016 Discharge planning issues [Z75.8] 03/26/2016 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] Pacemaker [Z95.0] Adrenal nodule (HCC) [E27.9] 08/09/2023 Acute kidney failure, unspecified (HCC) [N17.9] 01/03/2017 Anemia in CKD (chronic kidney disease) [N18.9, *08/09/2023 Aortic aneurysm (HCC) [I71.9] 08/09/2023 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 Chronic pancreatitis (HCC) [K86.1] 08/09/2023 Calcium deficiency [E58] 08/09/2023 Cirrhosis of liver (HCC) [K74.60] 08/09/2023 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*08/09/2023 Cognitive communication deficit [R41.841] 05/21/2023 Depression [F32.A] 08/09/2023 Elevated liver enzymes [R74.8] 08/09/2023 GERD (gastroesophageal reflux disease) [K21.9] 08/09/2023 Hiatal hernia [K44.9] 08/09/2023 History of aortic valve replacement [Z95.2] 08/09/2023 Hepatic steatosis [K76.0] 08/09/2023 History of kidney stones [Z87.442] 08/09/2023 History of pacemaker [Z95.0] 08/09/2023 History of TIA (transient ischemic attack) [Z86*08/09/2023 Hyperlipidemia LDL goal <100 [E78.5] 08/09/2023 Hyperosmolar non-ketotic state in patient with *08/09/2023 Insomnia, unspecified [G47.00] 05/22/2023 Left (more content not included)... Normal [facility] 02-21-2024 SAYRA Telephone (KI) ANALILIA MELENDREZ ([id number]) 1960 M Date Time Provider Department 02/21/24 MARIANNA WAGNER During your visit today, we recorded the following information about you: Giulia Rogel MA 02/21/2024 4:43 PM Signed Patient called and left a message stating that his appointment was canceled and that they can't do anything for him. He states his bowels are still bothering him Giulia Rogel MA Allergies As of Date: 02/21/2024 (No Known Allergies) Date Reviewed: 12/27/2023 Reviewed by: Marianna Wagner APRN.SPLUNK D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 - Fully Assessed Reason for Visit: Patient Question [2517] Prescriptions as of 02/21/2024 - pantoprazole DR (PROTONIX) 40 mg tablet TAKE ONE TABLET BY MOUTH TWICE A DAY 30 MINUTES BEFORE EATING - UNIFINE PENTIPS 31 gauge x 3/16 USE ONE 3 TIMES DAILY - FARXIGA 10 mg tablet Take 1 tablet by mouth daily with breakfast. - ferrous sulfate (FEROSUL) 325 mg (65 mg iron) tablet TAKE ONE TABLET BY MOUTH EVERY DAY - Blood-Glucose Sensor (FREESTYLE MANGO 3 SENSOR) daniel Apply new sensor every fourteen (14) days to upper arm. - cngcbd-ovzerppy-uooxrgj (CREON 36) 36,000-114,000- 180,000 unit delayed release capsule Take 2 pills by mouth with first bite of meal and take 1 pill with snacks. Max 10 per day. - metFORMIN (GLUCOPHAGE) 500 mg tablet Take 1 tablet by mouth daily with breakfast. - Cholecalciferol, Vitamin D3, (VITAMIN D-3) 50 mcg (2,000 unit) cap Take 1 capsule by mouth once daily. - Blood-Glucose Meter,Continuous (FREESTYLE MANGO 3 READER) [facility] Use to check blood sugar at least four (4) times daily. - insulin glargine 100 unit/mL (3 mL) Inject 10 Units subcutaneously once daily. - metoprolol tartrate, short acting, (LOPRESSOR) 50 mg tablet Take 1 tablet by mouth two times a day. - ramipril (ALTACE) 10 mg capsule Take 10 mg by mouth once daily. - dicyclomine (BENTYL) 10 mg capsule Take 1 capsule by mouth before meals and at bedtime. - atorvastatin (LIPITOR) 40 mg tablet TAKE 1 TABLET BY MOUTH ONCE DAILY. - MULTIVITAMIN ORAL Take 1 tablet by mouth once daily. Problem List As Of Date 02/21/2024 Noted Resolved SUMMARY 03/09/2016 Acute thoracic aortic dissection (HCC) [I71.019]03/09/2016 Primary hypertension [I10] 03/09/2016 History of IVDU (intravenous drug user) [F19.90]03/09/2016 Smoking greater than 10 pack years [F17.210] 03/09/2016 History of depression [Z86.59] 03/09/2016 Type 2 diabetes mellitus with complication, wit*03/09/2016 Alcohol-induced chronic pancreatitis (HCC) [K86*03/09/2016 History of ruptured aneurysm of thoracic aorta *03/09/2016 03/10/2016 Acute headache [R51.9] 03/09/2016 History of alcohol abuse [F10.11] 03/09/2016 History of dissection of thoracic aorta [Z86.79]03/10/2016 Preop testing [Z01.818] 03/16/2016 03/20/2016 Cardiac insufficiency (HCC) [I50.9] 03/19/2016 03/26/2016 Postoperative hypotension [I95.81] 03/19/2016 03/21/2016 Pain, postoperative, acute [G89.18] 03/19/2016 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] 03/20/2016 03/26/2016 Acute respiratory failure with hypoxia (HCC) [J*03/21/2016 03/26/2016 Fluid overload [E87.70] 03/21/2016 03/22/2016 Hypoxemia [R09.02] 03/23/2016 03/26/2016 Discharge planning issues [Z75.8] 03/26/2016 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] Pacemaker [Z95.0] Adrenal nodule (HCC) [E27.9] 08/09/2023 Acute kidney failure, unspecified (HCC) [N17.9] 01/03/2017 Anemia in CKD (chronic kidney disease) [N18.9, *08/09/2023 Aortic aneurysm (HCC) [I71.9] 08/09/2023 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 Chronic pancreatitis (HCC) [K86.1] 08/09/2023 Calcium deficiency [E58] 08/09/2023 Cirrhosis of liver (HCC) [K74.60] 08/09/2023 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*08/09/2023 Cognitive communication deficit [R41.841] 05/21/2023 Depression [F32.A] 08/09/2023 Elevated liver enzymes [R74.8] 08/09/2023 GERD (gastroesophageal reflux disease) [K21.9] 08/09/2023 Hiatal hernia [K44.9] 08/09/2023 History of aortic valve replacement [Z95.2] 08/09/2023 Hepatic steatosis [K76.0] 08/09/2023 History of kidney stones [Z87.442] 08/09/2023 History of pacemaker [Z95.0] 08/09/2023 History of TIA (transient ischemic attack) [Z86*08/09/2023 Hyperlipidemia LDL goal <100 [E78.5] 08/09/2023 Hyperosmolar non-ketotic state in patient with *08/09/2023 Insomnia, unspecified [G47.00] 05/22/2023 Left ventricular hypertrophy [I51.7] 08/09/2023 Nicotine dependence, unspecified, uncomplicated* 7 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] 05/20/2023 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 [place] 02-16-2024 SAYRA Telephone (KI) ANALILIA MELENDREZ ([id number]) 1960 M Date Time Provider Department 02/16/24 MARIANNA WAGNER During your visit today, we recorded the following information about you: Suzi Haynes MA 02/16/2024 7:19 AM Signed ----- Message from Andrew Horowitz MA sent at 08/16/2023 2:21 PM EDT ----- Remind pt. Time to recheck A1C. Andrew Ponce MA Allergies As of Date: 02/16/2024 (No Known Allergies) Date Reviewed: 12/27/2023 Reviewed by: Marianna Wagner APRN.SPLUNK D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 - Fully Assessed Reason for Visit: Lab Orders [1448] Prescriptions as of 03/03/2024 - pantoprazole DR (PROTONIX) 40 mg tablet TAKE ONE TABLET BY MOUTH TWICE A DAY 30 MINUTES BEFORE EATING - UNIFINE PENTIPS 31 gauge x 3/16 USE ONE 3 TIMES DAILY - FARXIGA 10 mg tablet Take 1 tablet by mouth daily with breakfast. - ferrous sulfate (FEROSUL) 325 mg (65 mg iron) tablet TAKE ONE TABLET BY MOUTH EVERY DAY - Blood-Glucose Sensor (FREESTYLE MANGO 3 SENSOR) daniel Apply new sensor every fourteen (14) days to upper arm. - ftiuwe-btyutvtz-eclhthq (CREON 36) 36,000-114,000- 180,000 unit delayed release capsule Take 2 pills by mouth with first bite of meal and take 1 pill with snacks. Max 10 per day. - metFORMIN (GLUCOPHAGE) 500 mg tablet Take 1 tablet by mouth daily with breakfast. - Cholecalciferol, Vitamin D3, (VITAMIN D-3) 50 mcg (2,000 unit) cap Take 1 capsule by mouth once daily. - Blood-Glucose Meter,Continuous (FREESTYLE MANGO 3 READER) [facility] Use to check blood sugar at least four (4) times daily. - insulin glargine 100 unit/mL (3 mL) Inject 10 Units subcutaneously once daily. - metoprolol tartrate, short acting, (LOPRESSOR) 50 mg tablet Take 1 tablet by mouth two times a day. - ramipril (ALTACE) 10 mg capsule Take 10 mg by mouth once daily. - dicyclomine (BENTYL) 10 mg capsule Take 1 capsule by mouth before meals and at bedtime. - atorvastatin (LIPITOR) 40 mg tablet TAKE 1 TABLET BY MOUTH ONCE DAILY. - MULTIVITAMIN ORAL Take 1 tablet by mouth once daily. Problem List As Of Date 02/16/2024 Noted Resolved SUMMARY 03/09/2016 Acute thoracic aortic dissection (HCC) [I71.019]03/09/2016 Primary hypertension [I10] 03/09/2016 History of IVDU (intravenous drug user) [F19.90]03/09/2016 Smoking greater than 10 pack years [F17.210] 03/09/2016 History of depression [Z86.59] 03/09/2016 Type 2 diabetes mellitus with complication, wit*03/09/2016 Alcohol-induced chronic pancreatitis (HCC) [K86*03/09/2016 History of ruptured aneurysm of thoracic aorta *03/09/2016 03/10/2016 Acute headache [R51.9] 03/09/2016 History of alcohol abuse [F10.11] 03/09/2016 History of dissection of thoracic aorta [Z86.79]03/10/2016 Preop testing [Z01.818] 03/16/2016 03/20/2016 Cardiac insufficiency (HCC) [I50.9] 03/19/2016 03/26/2016 Postoperative hypotension [I95.81] 03/19/2016 03/21/2016 Pain, postoperative, acute [G89.18] 03/19/2016 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] 03/20/2016 03/26/2016 Acute respiratory failure with hypoxia (HCC) [J*03/21/2016 03/26/2016 Fluid overload [E87.70] 03/21/2016 03/22/2016 Hypoxemia [R09.02] 03/23/2016 03/26/2016 Discharge planning issues [Z75.8] 03/26/2016 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] Pacemaker [Z95.0] Adrenal nodule (HCC) [E27.9] 08/09/2023 Acute kidney failure, unspecified (HCC) [N17.9] 01/03/2017 Anemia in CKD (chronic kidney disease) [N18.9, *08/09/2023 Aortic aneurysm (HCC) [I71.9] 08/09/2023 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 Chronic pancreatitis (HCC) [K86.1] 08/09/2023 Calcium deficiency [E58] 08/09/2023 Cirrhosis of liver (HCC) [K74.60] 08/09/2023 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*08/09/2023 Cognitive communication deficit [R41.841] 05/21/2023 Depression [F32.A] 08/09/2023 Elevated liver enzymes [R74.8] 08/09/2023 GERD (gastroesophageal reflux disease) [K21.9] 08/09/2023 Hiatal hernia [K44.9] 08/09/2023 History of aortic valve replacement [Z95.2] 08/09/2023 Hepatic steatosis [K76.0] 08/09/2023 History of kidney stones [Z87.442] 08/09/2023 History of pacemaker [Z95.0] 08/09/2023 History of TIA (transient ischemic attack) [Z86*08/09/2023 Hyperlipidemia LDL goal <100 [E78.5] 08/09/2023 Hyperosmolar non-ketotic state in patient with *08/09/2023 Insomnia, unspecified [G47.00] 05/22/2023 Left ventricular hypertrophy [I51.7] 08/09/2023 Nicotine dependence, unspecified, uncomplicated* 7 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] 05/20/2023 correction (current) use of insulin (HCC) [Z79.4]01/03/2017 Pansystolic murmur [R01.1] 08/09/2023 Unspecified severe protein-calorie malnutrition*05/20/2023 Encounter Status:Closed by SUZI HAYNES on 03/03/24 [facility] [place] 01-14-2024 SAYRA Telephone (CLIFTON) ANALILIA MELENDREZ ([id number]) 1960 M Date Time Provider Department 01/14/24 VANDANA EDWARDS During your visit today, we recorded the following information about you: Anand, Radha 01/14/2024 1:34 PM Signed Lvm for patient to return the call. Patient missed todays apointment Cristela Gilmore 01/17/2024 9:[address] LABS PATIENT COMING IN ON 01/20 Chanel Foreman LPN 01/17/2024 9:36 AM Signed What labs would you like. KEITH Ray Brianna 01/17/2024 11:38 AM Addendum Pt needs GI workup, EDG and scope. Repeat CBC ordered. Unfortunately, I do not have any new information to further eval his anemia from our last OV. He does not need OV with us until after he meets with GI. Chanel Foreman LPN 01/17/2024 12:09 PM Signed Has GI apt in [place]. Will need OV with Vandana perkins per her note below. KEITH Ray Stephanie 01/19/2024 10:27 AM Signed Spoke with patient and rescheduled as directed. PSS - please print and mail an updated schedule to the patient. Cristela Veloz 01/19/2024 12:05 PM Signed Done Allergies As of Date: 01/14/2024 (No Known Allergies) Date Reviewed: 12/27/2023 Reviewed by: Marianna Wagner APRN.SPLUNK D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 - Fully Assessed Reason for Visit: Appointment [[id number]] Primary Visit Diagnosis:Anemia, unspecified type [D64.9] Order(s):COMPLETE BLOOD COUNT AND DIFFERENTIAL [SQCBCDIF] Order #: [id number] FUTURE Prescriptions as of 01/29/2024 - ferrous sulfate (FEROSUL) 325 mg (65 mg iron) tablet TAKE ONE TABLET BY MOUTH EVERY DAY - Blood-Glucose Sensor (FREESTYLE MANGO 3 SENSOR) daniel Apply new sensor every fourteen (14) days to upper arm. - afiyvh-rwoaompx-cpxxvxl (CREON 36) 36,000-114,000- 180,000 unit delayed release capsule Take 2 pills by mouth with first bite of meal and take 1 pill with snacks. Max 10 per day. - Insulin [place], Disposable, (BD ULTRA-FINE NORBERTO PEN NEEDLE) 32 gauge x 5/32 1 Each three times a day. - metFORMIN (GLUCOPHAGE) 500 mg tablet Take 1 tablet by mouth daily with breakfast. - Cholecalciferol, Vitamin D3, (VITAMIN D-3) 50 mcg (2,000 unit) cap Take 1 capsule by mouth once daily. - Blood-Glucose Meter,Continuous (FREESTYLE MANGO 3 READER) [facility] Use to check blood sugar at least four (4) times daily. - FARXIGA 10 mg tablet Take 1 tablet by mouth daily with breakfast. - insulin glargine 100 unit/mL (3 mL) Inject 10 Units subcutaneously once daily. - metoprolol tartrate, short acting, (LOPRESSOR) 50 mg tablet Take 1 tablet by mouth two times a day. - ramipril (ALTACE) 10 mg capsule Take 10 mg by mouth once daily. - pantoprazole DR (PROTONIX) 40 mg tablet Take 1 tablet by mouth two times a day. 30 minutes before eating. - dicyclomine (BENTYL) 10 mg capsule Take 1 capsule by mouth before meals and at bedtime. - atorvastatin (LIPITOR) 40 mg tablet TAKE 1 TABLET BY MOUTH ONCE DAILY. - MULTIVITAMIN ORAL Take 1 tablet by mouth once daily. Problem List As Of Date 01/14/2024 Noted Resolved SUMMARY 03/09/2016 Acute thoracic aortic dissection (HCC) [I71.019]03/09/2016 Primary hypertension [I10] 03/09/2016 History of IVDU (intravenous drug user) [F19.90]03/09/2016 Smoking greater than 10 pack years [F17.210] 03/09/2016 History of depression [Z86.59] 03/09/2016 Type 2 diabetes mellitus with complication, wit*03/09/2016 Alcohol-induced chronic pancreatitis (HCC) [K86*03/09/2016 History of ruptured aneurysm of thoracic aorta *03/09/2016 03/10/2016 Acute headache [R51.9] 03/09/2016 History of alcohol abuse [F10.11] 03/09/2016 History of dissection of thoracic aorta [Z86.79]03/10/2016 Preop testing [Z01.818] 03/16/2016 03/20/2016 Cardiac insufficiency (HCC) [I50.9] 03/19/2016 03/26/2016 Postoperative hypotension [I95.81] 03/19/2016 03/21/2016 Pain, postoperative, acute [G89.18] 03/19/2016 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] 03/20/2016 03/26/2016 Acute respiratory failure with hypoxia (HCC) [J*03/21/2016 03/26/2016 Fluid overload [E87.70] 03/21/2016 03/22/2016 Hypoxemia [R09.02] 03/23/2016 03/26/2016 Discharge planning issues [Z75.8] 03/26/2016 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] Pacemaker [Z95.0] Adrenal nodule (HCC) [E27.9] 08/09/2023 Acute kidney failure, unspecified (HCC) [N17.9] 01/03/2017 Anemia in CKD (chronic kidney disease) [N18.9, *08/09/2023 Aortic aneurysm (HCC) [I71.9] 08/09/2023 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 Chronic pancreatitis (HCC) [K86.1] 08/09/2023 Calcium deficiency [E58] 08/09/2023 Cirrhosis of liver (HCC) [K74.60] 08/09/2023 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 Normal [facility] 12-31-2023 SAYRA Telephone (ASCNORT) ANALILIA MELENDREZ ([id number]) 1960 M Date Time Provider Department 12/31/23 SABRA DESOUZA During your visit today, we recorded the following information about you: Sabra Desouza APRN.ENGINEERING LAB TECHNICIAN 12/31/2023 4:45 PM Signed Please cancel endo procedures at [facility] 01/07/24. Pt needs to be scheduled in the hospital setting due to medical history (Cirrhosis). I called and spoke with him and gave him the scheduling phone number so he can reschedule himself. Allergies As of Date: 12/31/2023 (No Known Allergies) Date Reviewed: 12/27/2023 Reviewed by: Marianna Wagner APRN.SPLUNK D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 - Fully Assessed Reason for Visit: Anesthesia Consult [7495] Prescriptions as of 12/31/2023 - Blood-Glucose Sensor (FREESTYLE MANGO 3 SENSOR) daniel Apply new sensor every fourteen (14) days to upper arm. - vsuxcw-czenkgpz-dtlihyu (CREON 36) 36,000-114,000- 180,000 unit delayed release capsule Take 2 pills by mouth with first bite of meal and take 1 pill with snacks. Max 10 per day. - Insulin [place]thing[place], Disposable, (BD ULTRA-FINE NORBERTO PEN NEEDLE) 32 gauge x 5/32 1 Each three times a day. - metFORMIN (GLUCOPHAGE) 500 mg tablet Take 1 tablet by mouth daily with breakfast. - Cholecalciferol, Vitamin D3, (VITAMIN D-3) 50 mcg (2,000 unit) cap Take 1 capsule by mouth once daily. - ferrous sulfate 325 mg (65 mg iron) tablet Take 1 tablet by mouth once daily. - Blood-Glucose Meter,Continuous (FREESTYLE MANGO 3 READER) [facility] Use to check blood sugar at least four (4) times daily. - FARXIGA 10 mg tablet Take 1 tablet by mouth daily with breakfast. - insulin glargine 100 unit/mL (3 mL) Inject 10 Units subcutaneously once daily. - metoprolol tartrate, short acting, (LOPRESSOR) 50 mg tablet Take 1 tablet by mouth two times a day. - ramipril (ALTACE) 10 mg capsule Take 10 mg by mouth once daily. - pantoprazole DR (PROTONIX) 40 mg tablet Take 1 tablet by mouth two times a day. 30 minutes before eating. - dicyclomine (BENTYL) 10 mg capsule Take 1 capsule by mouth before meals and at bedtime. - atorvastatin (LIPITOR) 40 mg tablet TAKE 1 TABLET BY MOUTH ONCE DAILY. - MULTIVITAMIN ORAL Take 1 tablet by mouth once daily. Problem List As Of Date 12/31/2023 Noted Resolved SUMMARY 03/09/2016 Acute thoracic aortic dissection (HCC) [I71.019]03/09/2016 Primary hypertension [I10] 03/09/2016 History of IVDU (intravenous drug user) [F19.90]03/09/2016 Smoking greater than 10 pack years [F17.210] 03/09/2016 History of depression [Z86.59] 03/09/2016 Type 2 diabetes mellitus with complication, wit*03/09/2016 Alcohol-induced chronic pancreatitis (HCC) [K86*03/09/2016 History of ruptured aneurysm of thoracic aorta *03/09/2016 03/10/2016 Acute headache [R51.9] 03/09/2016 History of alcohol abuse [F10.11] 03/09/2016 History of dissection of thoracic aorta [Z86.79]03/10/2016 Preop testing [Z01.818] 03/16/2016 03/20/2016 Cardiac insufficiency (HCC) [I50.9] 03/19/2016 03/26/2016 Postoperative hypotension [I95.81] 03/19/2016 03/21/2016 Pain, postoperative, acute [G89.18] 03/19/2016 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] 03/20/2016 03/26/2016 Acute respiratory failure with hypoxia (HCC) [J*03/21/2016 03/26/2016 Fluid overload [E87.70] 03/21/2016 03/22/2016 Hypoxemia [R09.02] 03/23/2016 03/26/2016 Discharge planning issues [Z75.8] 03/26/2016 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] Pacemaker [Z95.0] Adrenal nodule (HCC) [E27.9] 08/09/2023 Acute kidney failure, unspecified (HCC) [N17.9] 01/03/2017 Anemia in CKD (chronic kidney disease) [N18.9, *08/09/2023 Aortic aneurysm (HCC) [I71.9] 08/09/2023 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 Chronic pancreatitis (HCC) [K86.1] 08/09/2023 Calcium deficiency [E58] 08/09/2023 Cirrhosis of liver (HCC) [K74.60] 08/09/2023 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*08/09/2023 Cognitive communication deficit [R41.841] 05/21/2023 Depression [F32.A] 08/09/2023 Elevated liver enzymes [R74.8] 08/09/2023 GERD (gastroesophageal reflux disease) [K21.9] 08/09/2023 Hiatal hernia [K44.9] 08/09/2023 History of aortic valve replacement [Z95.2] 08/09/2023 Hepatic steatosis [K76.0] 08/09/2023 History of kidney stones [Z87.442] 08/09/2023 History of pacemaker [Z95.0] 08/09/2023 History of TIA (transient ischemic attack) [Z86*08/09/2023 Hyperlipidemia LDL goal <100 [E78.5] 08/09/2023 Hyperosmolar non-ketotic state in patient with *08/09/2023 Insomnia, unspecified [G47.00] 05/22/2023 Left ventricular hypertrophy [I51.7] 08/09/2023 Nicotine dependence, unspecified, uncomplicated* 7 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] 05/20/2023 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 Normal [facility] CNOVon 12-27-2023 CNOV Office Visit (DALJIT CALL) ANALILIA MELENDREZ ([id number]) 1960 M Date Time Provider Department 12/27/23 2:00 PM MARIANNA WAGNER During your visit today, we recorded the following information about you: Temperature Pulse Respiration Blood pressure 97.8 degrees 75/minute 16/minute 126/70 Weight Height 61.7 kg 1.803 m Marianna Wagner APRN.SPLUNK D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 01/08/2024 8:36 PM Signed CHIEF COMPLAINT: Analilia Melendrez is a 63 year old male who presents for follow up for abdominal pain (chronic pancreatitis). I reviewed past medical, surgical, social, and family histories today and updated chart. Allergies, chronic medications, and supplements were also reviewed. He had an appointment with GI 2 weeks ago and the plan is for him to undergo a colonoscopy and EGD due to anemia and weight loss. He was started on Creon with meals and snacks. He remains on Protonix 40 mg BID. He is still taking his iron replacement. Using Freestyle Mango 3 (has it on his right forearm) Got it through a diabetic clinic in [facility] has been refilling it for him but states it's been on back order BS running in the 200's He is on 10 units insulin glargine and Farxiga OV 10/14/2023: Analilia Melendrez is a 63 year old male who presents for month f/u (Abdomen is still bothering and his bowel movements). I reviewed past medical, surgical, social, and family histories today and updated chart. Allergies, chronic medications, and supplements were also reviewed. His last appointment was on 08/09/23 and reported diarrhea for at least 4 weeks prior. Stool studies were ordered but he never completed them. He was referred to GI and had an appointment on 09/24/23 but it appears that he cancelled the appointment (he doesn't recall this). He called the nurse triage line to report he was having bloody diarrhea and he was contacted by this office to make an appointment but he did not come in until today. He continues to have diarrhea. He has seen blood as well. He states he has a decreased appetite and is not eating much (crackers, potatoes) which is contributing to his weight loss (has lost about 30 pounds since June). His daughter did get him some Ensure to drink but he does not have anymore. He has had generalized abdominal pain and nausea. He denies any fevers or vomiting. His blood sugars have been up and down. He had a BS of 50 once and felt symptomatic. His BS has been as high as 300. He reports compliance with Farxiga, Metformin, and his daily insulin. Stopped drinking beer a week ago States he was having 1 beer every other day previously He continues to have pain with urination. He was treated for an UTI in August. + for E.coli. OV 08/09/23: Analilia Melendrez is a 63 year old male presenting today as a new patient to establish care. I reviewed past medical, surgical, social, and family histories today and updated chart. Allergies, chronic medications, and supplements were also reviewed. PMH of DM type 2 on insulin, Having chronic diarrhea for the last 2 months. Can go up to 6-8 x a day. The color is orange. No blood that he can see. Having upper abdominal pain. Hx of pancreatitis. He is having upper abdominal pain. He is taking a PPI. Upper GI in the past. Last colonoscopy was about 30 years ago. Has been losing weight since then. Has lost about 25 lbs. Was 165 lbs prior to the residential in June. Has frequent nausea and vomiting. Has a low appetite Unsure of what his last A1C was BS are either really high or low. Has a freestyle mango. Taking Lantus insulin. No meal time insulin. Taking Farxiga and Metformin (has been on that for awhile). Was supposed to follow with a ultrasound sonographer Hx of aortic valve replacement Had a congenital aortic aneurysm Has a pacemaker Has had heart attack He is not following with any specialists right now. States he either had a seizure or stroke and was placed in the hospital and then went to a residential for 5 weeks. 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 Started smoking again, 5-10 cigarettes Has quit in the past, up to a year Drinks alcohol 1 beer every other Used to drink vodka every day, approximately 3 years ago Was in rehab before No marijuana or illicit drugs. 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 Son overdosed and 8 years ago. HPI PAST MEDICAL HISTORY Diagnosis Date Alcohol-induced chronic pancreatitis (HCC) Anxiety Aortic aneurysm (HCC) S/P Repair Aortic valve disorder S/P Replacement CAD (coronary artery disease) nonobstructive Chronic kidney disease, stage III (moderate) (HCC) Clostridioides difficile infection Coronary artery disease Depression Diabetes mellitus, type II (HCC) Insulin dependent History of alcohol abuse Hx of ascending aorta repair Hyperlipidemia (more content not included)... Normal [facility] CNOVon 12-24-2023 CNOV Office Visit (GSTNOR ) DARRINANALILIA VERNON ([id number]) 1960 M Date Time Provider Department 12/24/23 11:20 AM SUSANA RAMIREZ During your visit today, we recorded the following information about you: Pulse Blood pressure Weight Height 70/minute 132/84 61.7 kg 1.803 m Susana Ramirez APRN.SPLUNK D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 12/24/2023 11:29 AM Signed CHIEF COMPLAINT: Patient presents with: Anemia: Diarrhea and blood in the stool This consult was requested by Marianna Wagner APRN* for an opinion regarding anemia. My final recommendations will be communicated to the requesting health care provider by way of the shared medical record for internal providers or letter via the [employer] for external providers. HPI: Analilia Melendrez is a 63 year old male with hx of AVR (bovine), pacemaker, DMII, HTN, chronic pancreatitis, GERD, HLD, CAD who presents for Anemia (Diarrhea and blood in the stool). He is anemic with hgb 10/hct 31.8 with macrocytic indices. He has had more fatigue and SOB. He has had epigastric pain for the past 6 months and it radiates to his back. If he is hungry, it hurts worse. He is losing a lot of weight (20 pounds over the past 6 months). He has no appetite. Denies any nausea or vomiting. Has diarrhea all the time and it is like bile. Denies any gerd or heartburn. No hx of PUD. No prior EGD. Last colonoscopy was many years ago and he states he had several polyps. CT pancreas 12/08/23 that showed changes of chronic pancreatitis; no identifiable pancreatic mass. He did have c.diff and was treated for this. Record Review: [facility] / Outside records reviewed. Latest Ref [facility] 10/15/2023 WBC 3.70 - 11.00 k/uL 4.67 RBC 4.20 - 6.00 m/uL 2.68 (L) Hemoglobin 13.0 - 17.0 g/dL 10.0 (L) Hematocrit 39.0 - 51.0 % 31.8 (L) MCV 80.0 - 100.0 fL 118.7 (H) MCH 26.0 - 34.0 pg 37.3 (H) MCHC 30.5 - 36.0 g/dL 31.4 RDW-CV 11.5 - 15.0 % 13.3 Platelet Count 150 - 400 k/uL 202 MPV 9.0 - 12.7 fL 11.6 NRBC /100 WBC 0.0 Absolute nRBC <0.01 k/uL <0.01 Neut% % 49.0 Abs Neut (ANC) 1.45 - 7.50 k/uL 2.29 Lymph% % 39.0 Abs Lymph 1.00 - 4.00 k/uL 1.82 Erath% % 11.0 Abs Erath <0.87 k/uL 0.51 Eosin% % 0.0 Abs Eosin <0.46 k/uL 0.00 Baso% % 0.0 Abs Baso <0.11 k/uL 0.00 Myelo% % 1.0 Left Shift Present Platelet Estimate Adequate Red Cell Morph Reviewed: see results of individual morphologies Ovalocytes Few RBC Fragments None Seen Few ! DTYPE Manual Protein, Total 6.3 - 8.0 g/dL 5.2 (L) Albumin 3.9 - 4.9 g/dL 2.4 (L) Calcium 8.5 - 10.2 mg/dL 7.9 (L) Bilirubin, Total 0.2 - 1.3 mg/dL <0.2 (L) Alkaline Phosphatase 38 - 113 U/L 134 (H) AST 14 - 40 U/L 64 (H) ALT 10 - 54 U/L 26 Glucose 74 - 99 mg/dL 130 (H) BUN 9 - 24 mg/dL 14 Creatinine 0.73 - 1.22 mg/dL 1.55 (H) Sodium 136 - 144 mmol/L 142 Potassium 3.7 - 5.1 mmol/L 4.8 Chloride 98 - 107 mmol/L 103 CO2 22 - 30 mmol/L 28 Anion Gap 8 - 15 mmol/L 11 eGFR >=60 mL/min/1.73m? 51 (L) Iron 41 - 186 ug/dL 96 TIBC 232 - 386 ug/dL <113 (L) Transferrin Saturation 15.0 - 57.0 % >85.0 (H) Ferritin 30.3 - 565.7 ng/mL 630.0 (H) Folate >4.7 ng/mL 16.4 Vitamin B12 232 - 1,245 pg/mL 1,514 (H) Legend: (L) Low (H) High ! Abnormal PAST MEDICAL HISTORY Diagnosis Date Alcohol-induced chronic pancreatitis (HCC) Anxiety Aortic aneurysm (HCC) S/P Repair Aortic valve disorder S/P Replacement CAD (coronary artery disease) nonobstructive Chronic kidney disease, stage III (moderate) (HCC) Clostridioides difficile infection Coronary artery disease Depression Diabetes mellitus, type II (HCC) Insulin dependent History of alcohol abuse Hx of ascending aorta repair Hyperlipidemia Hypertension Non-ST elevation [place] (NSTEMI) (HCC) 06/24 Pacemaker Paroxysmal atrial fibrillation (HCC) RBBB (right bundle branch block) S/P aortic valve replacement [facility]. [place] mechanical Syncope Tachy-fernando syndrome (HCC) Tobacco abuse chronic Tobacco user Type 2 diabetes mellitus (HCC) PAST SURGICAL HISTORY Procedure Laterality Date ABD AORTIC ANEURYSM REPAIR ASCENDING AORTA GRAFT W/AORTIC ROOT COLONOSCOPY SCREENING In [place] CORONARY ARTERY BYPASS GRAFT HX 2016 2005 HEART CATHETERIZATION 06/24/2016 HEART VALVE REPLACEMENT 2017 Aortic x2 ;2015 HERNIA REPAIR HX PACEMAKER 06/25/2016 REPLACEMENT AORTIC VALVE W BYPASS Allergies: ALLERGIES No Known Allergies Medications: Insulin Worthington, Disposable, (BD ULTRA-FINE NORBERTO PEN NEEDLE) 32 gauge x 5/32 1 Each three times a day. metFORMIN (GLUCOPHAGE) 500 mg tablet Take 1 tablet by mouth daily with breakfast. Cholecalciferol, Vitamin D3, (VITAMIN D-3) 50 mcg (2,000 unit) cap Take 1 capsule by mouth once daily. ferrous sulfate 325 mg (65 mg iron) tablet Take 1 tablet by mouth once daily. Blood-Glucose Meter,Continuous (FREESTYLE MANGO 3 READER) [facility] Use to check bl (more content not included)... Normal [facility] CNPNon 12-16-2023 CNPN Telephone (AGFAMPLE) ANALILIA MELENDREZ ([id number]) 1960 M Date Time Provider Department 12/16/23 MARIANNA WAGNER During your visit today, we recorded the following information about you: Suzi Haynes MA 12/16/2023 5:04 PM Signed ----- Message from Marianna Wagner APRN.SPLUNK D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 sent at 12/15/2023 6:32 PM EST ----- CT pancreas showed chronic calcified pancreatitis with multiple stones and dilation of the duct. There was no mass. He needs to make the appointment with GI on 12/23 Suzi Haynes MA 12/16/2023 5:05 PM Signed Patient informed of results and to keep GI appointment on 12/24/23 at 11:20, reiterated the appointment and time to patient multiple times. Suzi Haynes MA Allergies As of Date: 12/16/2023 (No Known Allergies) Date Reviewed: 12/02/2023 Reviewed by: Ramy Garcia, RT(R) - Fully Assessed Reason for Visit: Results [95] Prescriptions as of 12/16/2023 - Insulin Worthington, Disposable, (BD ULTRA-FINE NORBERTO PEN NEEDLE) 32 gauge x 5/32 1 Each three times a day. - metFORMIN (GLUCOPHAGE) 500 mg tablet Take 1 tablet by mouth daily with breakfast. - Cholecalciferol, Vitamin D3, (VITAMIN D-3) 50 mcg (2,000 unit) cap Take 1 capsule by mouth once daily. - ferrous sulfate 325 mg (65 mg iron) tablet Take 1 tablet by mouth once daily. - Blood-Glucose Meter,Continuous (FREESTYLE MANGO 3 READER) [facility] Use to check blood sugar at least four (4) times daily. - Blood-Glucose Sensor (FREESTYLE MANGO 3 SENSOR) daniel Apply new sensor every fourteen (14) days to upper arm. - FARXIGA 10 mg tablet Take 1 tablet by mouth daily with breakfast. - insulin glargine 100 unit/mL (3 mL) Inject 10 Units subcutaneously once daily. - metoprolol tartrate, short acting, (LOPRESSOR) 50 mg tablet Take 1 tablet by mouth two times a day. - ramipril (ALTACE) 10 mg capsule Take 10 mg by mouth once daily. - pantoprazole DR (PROTONIX) 40 mg tablet Take 1 tablet by mouth two times a day. 30 minutes before eating. - dicyclomine (BENTYL) 10 mg capsule Take 1 capsule by mouth before meals and at bedtime. - atorvastatin (LIPITOR) 40 mg tablet TAKE 1 TABLET BY MOUTH ONCE DAILY. - MULTIVITAMIN ORAL Take 1 tablet by mouth once daily. Problem List As Of Date 12/16/2023 Noted Resolved SUMMARY 03/09/2016 Acute thoracic aortic dissection (HCC) [I71.019]03/09/2016 Primary hypertension [I10] 03/09/2016 History of IVDU (intravenous drug user) [F19.90]03/09/2016 Smoking greater than 10 pack years [F17.210] 03/09/2016 History of depression [Z86.59] 03/09/2016 Type 2 diabetes mellitus with complication, wit*03/09/2016 Alcohol-induced chronic pancreatitis (HCC) [K86*03/09/2016 History of ruptured aneurysm of thoracic aorta *03/09/2016 03/10/2016 Acute headache [R51.9] 03/09/2016 History of alcohol abuse [F10.11] 03/09/2016 History of dissection of thoracic aorta [Z86.79]03/10/2016 Preop testing [Z01.818] 03/16/2016 03/20/2016 Cardiac insufficiency (HCC) [I50.9] 03/19/2016 03/26/2016 Postoperative hypotension [I95.81] 03/19/2016 03/21/2016 Pain, postoperative, acute [G89.18] 03/19/2016 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] 03/20/2016 03/26/2016 Acute respiratory failure with hypoxia (HCC) [J*03/21/2016 03/26/2016 Fluid overload [E87.70] 03/21/2016 03/22/2016 Hypoxemia [R09.02] 03/23/2016 03/26/2016 Discharge planning issues [Z75.8] 03/26/2016 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] Pacemaker [Z95.0] Adrenal nodule (HCC) [E27.9] 08/09/2023 Acute kidney failure, unspecified (HCC) [N17.9] 01/03/2017 Anemia in CKD (chronic kidney disease) [N18.9, *08/09/2023 Aortic aneurysm (HCC) [I71.9] 08/09/2023 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 Chronic pancreatitis (HCC) [K86.1] 08/09/2023 Calcium deficiency [E58] 08/09/2023 Cirrhosis of liver (HCC) [K74.60] 08/09/2023 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*08/09/2023 Cognitive communication deficit [R41.841] 05/21/2023 Depression [F32.A] 08/09/2023 Elevated liver enzymes [R74.8] 08/09/2023 GERD (gastroesophageal reflux disease) [K21.9] 08/09/2023 Hiatal hernia [K44.9] 08/09/2023 History of aortic valve replacement [Z95.2] 08/09/2023 Hepatic steatosis [K76.0] 08/09/2023 History of kidney stones [Z87.442] 08/09/2023 History of pacemaker [Z95.0] 08/09/2023 History of TIA (transient ischemic attack) [Z86*08/09/2023 Hyperlipidemia LDL goal <100 [E78.5] 08/09/2023 Hyperosmolar non-ketotic state in patient with *08/09/2023 Insomnia, unspecified [G47.00] 05/22/2023 Left ventricular hypertrophy [I51.7] 08/09/2023 Nicotine dependence, unspecified, uncomplicated* 7 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] 05/20/2023 correction (current) use of insulin (HCC) [Z79.4]01/03/2017 Pansystolic murmur [R01.1] 08/09/2023 Unspecified severe protein-calorie malnutrition*05/20/2023 Encounter Status: (more content not included)... Normal [facility] ALLIED HEALTHon 12-08-2023 ALLIED HEALTH HNO ID: [id number] Author: ANNY DURHAM CT Service: Radiology Author Type: Technologist Type: Allied Health Filed: 12/08/2023 10:57 Note Text: Radiology Service Progress Note PATIENT NAME: Analilia Melendrez DATE OF SERVICE: December 08, 2023 TIME: 10:57 AM PATIENT IDENTITY VERIFICATION COMPLETED USING TWO (2) IDENTIFIERS: Name and Date of confirmed by patient verbally and Name and Date of confirmed by identification band. FALL SCREENING: Has the patient had 2 falls in the last year or 1 fall with injury or currently using an Ambulatory Assistive Device (Walker, Cane, Wheelchair, Crutches, etc.)? No PATIENT GENDER DATA: Male PATIENT RELEVANT IMPLANT DATA REVIEWED: Not Applicable PATIENT PRESENTS WITH AN IMPLANTABLE OR ATTACHED DIVIDEND CLERK: No RADIOLOGY DEPARTMENT: CT; Exam(s) Completed: Pancreas PERIPHERAL IV DATA: Site assessment: Clean,Dry and Intact, Site disposition Discontinued SIGNED BY: TAMMY Thomas December 08, 2023 10:57 AM [facility] CT PANCREAS W IVCONon 2023 CT PANCREAS W IVCON * * *Final Report* * * DATE OF EXAM: Dec 08 2023 11:00AM [facility] - CT PANCREAS W IVCON / PROCEDURE REASON: multiple diagnoses * * * * Physician Interpretation * * * * CT ABDOMEN WITH IV CONTRAST CLINICAL INDICATION: Diarrhea, unspecified type. Acute pancreatitis, unspecified complication status, unspecified pancreatitis type. On review of the patient's electronic medical records, chronic pancreatitis. COMPARISON: CT abdomen/pelvis, 10/21/2023. CT angiogram chest/abdomen, 03/09/2016 to TECHNIQUE: A CT of the abdomen was performed using pancreas protocol, including both late arterial phase and portal phase imaging. Multiplanar reformats were obtained CONTRAST: IV: 100 ml of Omnipaque 350 CT Radiation dose: Integrated Dose-length product (DLP) for this visit = 299 mGy*cm. CT Dose Reduction Employed: Automated exposure control(AEC) and iterative recon RESULT: Liver: Benign left lobe cyst, essentially unchanged since 2017. Few additional scattered subcentimeter benign-appearing hypodensities. Cyst with posterior wall or dependent calcification in segment 6 (303:44), at the site of a simple appearing cyst in 2017 CT, compatible with a benign involuted cyst. Coarse calcification and in segment IVb. No worrisome liver lesion. Biliary: No bile duct dilation. No calcified gallstones Spleen: No mass. No splenomegaly. Pancreas: -Chronic calcific pancreatitis, with extensive parenchymal and intraductal stones. Cluster of intraductal stones in the head (303:57), with diffuse dilation of the duct in the body and tail up to 8 mm (303:40). Diffuse parenchymal atrophy. Overall, appearance is not significantly changed since the 2017 CT angiogram. -No identifiable mass. Adrenals:No mass. Kidneys: Nonobstructing right nephrolithiasis. No suspicious renal mass or hydronephrosis. GI tract: No dilation or wall thickening. Lymph nodes: No abdominal lymphadenopathy. Mesentery/Peritoneum: No ascites or mass. Retroperitoneum: No mass. Vasculature: - Abdominal aorta: Aortic atherosclerosis. Ectatic infrarenal abdominal aorta measuring up to 2.6 cm (303:70), without brandy aneurysm. - Celiac and SMA: Atherosclerotic calcifications at the origins. - Portal venous system (SMV, splenic vein, portal vein and branches): Patent. - Hepatic veins: Patent. Bones/Soft Tissues: No aggressive appearing bone lesions. Lower thorax: Unremarkable. IMPRESSION: Changes of chronic calcific pancreatitis as described, essentially unchanged since at least 2017. No identifiable pancreatic mass. Utilization Review Coordinator: PSCB Transcribe Date/Time: Dec 15 2023 10:26A Dictated by : JOSE A SANCHEZ MD This examination was interpreted and the report reviewed and electronically signed by: JOSE A SANCHEZ MD on Dec 15 2023 10:37AM EST [id number] Normal [facility] NURSING PROGon 12-08-2023 NURSING PROG HNO ID: [id number] Author: SIGRID MATA RN Service: Radiology Author Type: Registered Nurse Type: Nursing Progress Note Filed: 12/08/2023 10:43 Note Text: Radiology Service Progress Note DATE OF SERVICE: December 08, 2023 TIME: 10:42 AM PATIENT IDENTITY VERIFICATION COMPLETED USING TWO (2) STANDARD IDENTIFIERS: Name and Date of confirmed by patient verbally and Name and Date of confirmed by identification band. FALL SCREENING: Has the patient had 2 falls in the last year or 1 fall with injury or currently using an Ambulatory Assistive Device (Walker, Cane, Wheelchair, Crutches, etc.)? No PATIENT GENDER DATA: Male ALLERGIES: Reviewed and unchanged CONTRAST ALLERGY: No EXAM: CT -CONTRAST INDUCED NEPHROPATHY RISK FACTORS: Patient age > 60 years CREATININE: Creatinine Date Value Ref Range Status 10/15/2023 1.55 (H) 0.73 - 1.22 mg/dL Final 09/25/2023 1.06 0.73 - 1.22 mg/dL Final 08/09/2023 1.36 (H) 0.73 - 1.22 mg/dL Final Estimated Glomerular Filtration Rate Date Value Ref Range Status 10/15/2023 51 (L) >=60 mL/min/1.73m? Final Comment: Estimated Glomerular Filtration Rate (eGFR) is calculated using the 2020 CKD-EPI creatinine equation. This equation utilizes serum creatinine, sex, and age as parameters. The creatinine assay has traceable calibration to isotope dilution-mass spectrometry. Refer to KDIGO guidelines for clinical interpretation. In patients with unstable renal function, e.g. those with acute kidney injury, the eGFR may not accurately reflect actual GFR. eGFR- Date Value Ref Range Status 04/29/2017 >60 Final P.O.C.T. RESULTS: POC done: Yes, See Lab Tab December 08, 2023 TREATMENT: N/A IV SITE: Ambulatory: A peripheral IV was started in the Left antecubital site with a Angio cath: 20 gauge. IV SITE APPEARANCE: Clean,Dry and Intact SIGNATURE: Sigrid Mata RN PATIENT NAME: Analilia Melendrez DATE: December 08, 2023 TIME: 10:42 AM [facility] 12-07-[address] [facility] Telephone ([facility]) ANALILIA MELENDREZ ([id number]) 1960 M Date Time Provider Department 12/07/23 MARIANNA WAGNER During your visit today, we recorded the following information about you: Marianna Wagner, VEHICLE DISMANTLER.SPLUNK D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 12/07/2023 1:02 PM Signed New order for CT pancreas was placed since last one was discontinued. Allergies As of Date: 12/07/2023 (No Known Allergies) Date Reviewed: 12/02/2023 Reviewed by: Ramy Garcia, RT(R) - Fully Assessed Primary Visit Diagnosis:Diarrhea, unspecified type [R19.7] Other Visit Diagnosis:Acute pancreatitis, unspecified complication status, unspecified pancreatitis type [K85.90] Order(s):CT PANCREAS W IVCON [[id number]] Order #: [id number] FUTURE iv contrast (will be provided with radiology test)CT PANCREAS W Inject, intravenously, once for 1 dose.No IV access, insert saline lock prior to the beginning of sedation, infusion, injection of imaging exam. Discontinue saline lock post exam. If Pt. has a central line or IVAD, may access for administration according to line specific nursing protocol. Once exam is complete flush line and de-access according to line specific nursing protocol in the CT contrast administration guidelines link.Disp: 1 EachRfl: 0 Prescriptions as of 12/07/2023 - iv contrast (will be provided with radiology test) CT PANCREAS W Inject, intravenously, once for 1 dose.No IV access, insert saline lock prior to the beginning of sedation, infusion, injection of imaging exam. Discontinue saline lock post exam. If Pt. has a central line or IVAD, may access for administration according to line specific nursing protocol. Once exam is complete flush line and de-access according to line specific nursing protocol in the CT contrast administration guidelines link. - Insulin Worthington, Disposable, (BD ULTRA-FINE NORBERTO PEN NEEDLE) 32 gauge x 5/32 1 Each three times a day. - metFORMIN (GLUCOPHAGE) 500 mg tablet Take 1 tablet by mouth daily with breakfast. - Cholecalciferol, Vitamin D3, (VITAMIN D-3) 50 mcg (2,000 unit) cap Take 1 capsule by mouth once daily. - ferrous sulfate 325 mg (65 mg iron) tablet Take 1 tablet by mouth once daily. - Blood-Glucose Meter,Continuous (FREESTYLE MANGO 3 READER) misc Use to check blood sugar at least four (4) times daily. - Blood-Glucose Sensor (FREESTYLE MANGO 3 SENSOR) daniel Apply new sensor every fourteen (14) days to upper arm. - FARXIGA 10 mg tablet Take 1 tablet by mouth daily with breakfast. - insulin glargine 100 unit/mL (3 mL) Inject 10 Units subcutaneously once daily. - metoprolol tartrate, short acting, (LOPRESSOR) 50 mg tablet Take 1 tablet by mouth two times a day. - ramipril (ALTACE) 10 mg capsule Take 10 mg by mouth once daily. - pantoprazole DR (PROTONIX) 40 mg tablet Take 1 tablet by mouth two times a day. 30 minutes before eating. - dicyclomine (BENTYL) 10 mg capsule Take 1 capsule by mouth before meals and at bedtime. - atorvastatin (LIPITOR) 40 mg tablet TAKE 1 TABLET BY MOUTH ONCE DAILY. - MULTIVITAMIN ORAL Take 1 tablet by mouth once daily. Problem List As Of Date 12/07/2023 Noted Resolved SUMMARY 03/09/2016 Acute thoracic aortic dissection (HCC) [I71.019]03/09/2016 Primary hypertension [I10] 03/09/2016 History of IVDU (intravenous drug user) [F19.90]03/09/2016 Smoking greater than 10 pack years [F17.210] 03/09/2016 History of depression [Z86.59] 03/09/2016 Type 2 diabetes mellitus with complication, wit*03/09/2016 Alcohol-induced chronic pancreatitis (HCC) [K86*03/09/2016 History of ruptured aneurysm of thoracic aorta *03/09/2016 03/10/2016 Acute headache [R51.9] 03/09/2016 History of alcohol abuse [F10.11] 03/09/2016 History of dissection of thoracic aorta [Z86.79]03/10/2016 Preop testing [Z01.818] 03/16/2016 03/20/2016 Cardiac insufficiency (HCC) [I50.9] 03/19/2016 03/26/2016 Postoperative hypotension [I95.81] 03/19/2016 03/21/2016 Pain, postoperative, acute [G89.18] 03/19/2016 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] 03/20/2016 03/26/2016 Acute respiratory failure with hypoxia (HCC) [J*03/21/2016 03/26/2016 Fluid overload [E87.70] 03/21/2016 03/22/2016 Hypoxemia [R09.02] 03/23/2016 03/26/2016 Discharge planning issues [Z75.8] 03/26/2016 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] Pacemaker [Z95.0] Adrenal nodule (HCC) [E27.9] 08/09/2023 Acute kidney failure, unspecified (HCC) [N17.9] 01/03/2017 Anemia in CKD (chronic kidney disease) [N18.9, *08/09/2023 Aortic aneurysm (HCC) [I71.9] 08/09/2023 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 Chronic pancreatitis (HCC) [K86.1] 08/09/2023 Calcium deficiency [E58] 08/09/2023 Cirrhosis of liver (HCC) [K74.60] 08/09/2023 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 Normal [facility] CNPChanel 11-25-2023 STEPHANIEN Telephone (KI) ANALILIA MELENDREZ ([id number]) 1960 M Date Time Provider Department 11/25/23 MARIANNA WAGNER During your visit today, we recorded the following information about you: Twyla Espana 11/25/2023 12:59 PM Signed Denial: CPT 93106-IX PANCREAS W IVCON Denial Type: Payer Clinical Guidelines Not Met Denial Rationale: The notes sent do not meet Abdomen CT guidelines. Thus, the procedure is not shown to be medically needed. A physician reviewer made this decision based on a review of the following notes that were sent you have a belly problem. Prior to an approval, the following doctors notes should be sent doctors notes that say why the test Abdomen and Pelvis CT Computed Tomography that you already did on 10.21.23 is not enough to show your doctor how to treat you. [employer] Clinical Guideline [address] was used to make this decision. These guidelines were developed from practice experience, literature reviews, specialty criteria sets, and observed data. Is Peer to Peer Available? Yes Peer to Peer Deadline: 11/30/2023 Insurance Case#[id number] Peer to Peer opt 2 (enter tracking#) / opt 1 Denial sent to providers email Marianna Wagner APRN.CNP 11/29/2023 12:17 PM Signed Completed peer to peer for CT pancreas with IV contrast and obtained approval. # [id number] until 11/30/2023-12/31/2023 He is scheduled tomorrow for the CT. Spoke with Dr. Murillo with [facility] for reference. Allergies As of Date: 11/25/2023 (No Known Allergies) Date Reviewed: 11/15/2023 Reviewed by: Vandana Edwards - Fully Assessed Reason for Visit: denial: [id number] PANCREAS W IVCON [Other] Prescriptions as of 11/29/2023 - Insulin Worthington, Disposable, (BD ULTRA-FINE NORBERTO PEN NEEDLE) 32 gauge x 5/32 1 Each three times a day. - metFORMIN (GLUCOPHAGE) 500 mg tablet Take 1 tablet by mouth daily with breakfast. - Cholecalciferol, Vitamin D3, (VITAMIN D-3) 50 mcg (2,000 unit) cap Take 1 capsule by mouth once daily. - ferrous sulfate 325 mg (65 mg iron) tablet Take 1 tablet by mouth once daily. - Blood-Glucose Meter,Continuous (FREESTYLE MANGO 3 READER) [facility] Use to check blood sugar at least four (4) times daily. - Blood-Glucose Sensor (FREESTYLE MANGO 3 SENSOR) daniel Apply new sensor every fourteen (14) days to upper arm. - FARXIGA 10 mg tablet Take 1 tablet by mouth daily with breakfast. - insulin glargine 100 unit/mL (3 mL) Inject 10 Units subcutaneously once daily. - metoprolol tartrate, short acting, (LOPRESSOR) 50 mg tablet Take 1 tablet by mouth two times a day. - ramipril (ALTACE) 10 mg capsule Take 10 mg by mouth once daily. - pantoprazole DR (PROTONIX) 40 mg tablet Take 1 tablet by mouth two times a day. 30 minutes before eating. - dicyclomine (BENTYL) 10 mg capsule Take 1 capsule by mouth before meals and at bedtime. - atorvastatin (LIPITOR) 40 mg tablet TAKE 1 TABLET BY MOUTH ONCE DAILY. - MULTIVITAMIN ORAL Take 1 tablet by mouth once daily. Problem List As Of Date 11/25/2023 Noted Resolved SUMMARY 03/09/2016 Acute thoracic aortic dissection (HCC) [I71.019]03/09/2016 Primary hypertension [I10] 03/09/2016 History of IVDU (intravenous drug user) [F19.90]03/09/2016 Smoking greater than 10 pack years [F17.210] 03/09/2016 History of depression [Z86.59] 03/09/2016 Type 2 diabetes mellitus with complication, wit*03/09/2016 Alcohol-induced chronic pancreatitis (HCC) [K86*03/09/2016 History of ruptured aneurysm of thoracic aorta *03/09/2016 03/10/2016 Acute headache [R51.9] 03/09/2016 History of alcohol abuse [F10.11] 03/09/2016 History of dissection of thoracic aorta [Z86.79]03/10/2016 Preop testing [Z01.818] 03/16/2016 03/20/2016 Cardiac insufficiency (HCC) [I50.9] 03/19/2016 03/26/2016 Postoperative hypotension [I95.81] 03/19/2016 03/21/2016 Pain, postoperative, acute [G89.18] 03/19/2016 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] 03/20/2016 03/26/2016 Acute respiratory failure with hypoxia (HCC) [J*03/21/2016 03/26/2016 Fluid overload [E87.70] 03/21/2016 03/22/2016 Hypoxemia [R09.02] 03/23/2016 03/26/2016 Discharge planning issues [Z75.8] 03/26/2016 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] Pacemaker [Z95.0] Adrenal nodule (HCC) [E27.9] 08/09/2023 Acute kidney failure, unspecified (HCC) [N17.9] 01/03/2017 Anemia in CKD (chronic kidney disease) [N18.9, *08/09/2023 Aortic aneurysm (HCC) [I71.9] 08/09/2023 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 Chronic pancreatitis (HCC) [K86.1] 08/09/2023 Calcium deficiency [E58] 08/09/2023 Cirrhosis of liver (HCC) [K74.60] 08/09/2023 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 Normal [facility] 11-16-[address] [facility] Telephone (AGFAMPLE) ANALILIA MELENDREZ ([id number]) 1960 M Date Time Provider Department 11/16/23 MARIANNA WAGNER During your visit today, we recorded the following information about you: Suzi Haynes MA 11/16/2023 2:33 PM Signed Patient left message stating he saw the blade aligner yesterday and they are very worried about his stomach and wants him to be seen by GI sooner than 12/24/23. Patient states he has called and they cannot see him any sooner and wanted to know if there was anything Marianna could do. Please advise. LFORENTINO Jackson Brittny A, APRN.STEPHANIE 11/16/2023 3:07 PM Signed I have already tried to get him a sooner appointment but then he missed that appointment. I will send the request to their office but there may not be anything available. Jigna Carolina 11/16/2023 4:21 PM Signed Unfortunately, we do not have any openings sooner as of right now. I would suggest if he is needing to be seen urgently to contact central scheduling at if he is willing to go to any location for care. We did add him to the wait list. Marianna Ingram APRN.SPLUNK D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 11/16/2023 4:49 PM Signed Please let the patient know that I contacted GI and there is nothing available until his appointment in December. He needs to make this appointment. Giulia Rogel MA 11/16/2023 5:16 PM Signed Patient is informed Giulia Rogel MA Allergies As of Date: 11/16/2023 (No Known Allergies) Date Reviewed: 11/15/2023 Reviewed by: Vandana Edwards - Fully Assessed Reason for Visit: Patient Update [1234] Prescriptions as of 11/16/2023 - metFORMIN (GLUCOPHAGE) 500 mg tablet Take 1 tablet by mouth daily with breakfast. - Cholecalciferol, Vitamin D3, (VITAMIN D-3) 50 mcg (2,000 unit) cap Take 1 capsule by mouth once daily. - ferrous sulfate 325 mg (65 mg iron) tablet Take 1 tablet by mouth once daily. - Blood-Glucose Meter,Continuous (FREESTYLE MANGO 3 READER) [facility] Use to check blood sugar at least four (4) times daily. - Blood-Glucose Sensor (FREESTYLE MANGO 3 SENSOR) daniel Apply new sensor every fourteen (14) days to upper arm. - FARXIGA 10 mg tablet Take 1 tablet by mouth daily with breakfast. - insulin glargine 100 unit/mL (3 mL) Inject 10 Units subcutaneously once daily. - metoprolol tartrate, short acting, (LOPRESSOR) 50 mg tablet Take 1 tablet by mouth two times a day. - ramipril (ALTACE) 10 mg capsule Take 10 mg by mouth once daily. - pantoprazole DR (PROTONIX) 40 mg tablet Take 1 tablet by mouth two times a day. 30 minutes before eating. - dicyclomine (BENTYL) 10 mg capsule Take 1 capsule by mouth before meals and at bedtime. - atorvastatin (LIPITOR) 40 mg tablet TAKE 1 TABLET BY MOUTH ONCE DAILY. - MULTIVITAMIN ORAL Take 1 tablet by mouth once daily. - Insulin [place], Disposable, (NORBERTO PEN NEEDLE) 32 gauge x 5/32 ndle 1 application three times daily. Problem List As Of Date 11/16/2023 Noted Resolved SUMMARY 03/09/2016 Acute thoracic aortic dissection (HCC) [I71.019]03/09/2016 Primary hypertension [I10] 03/09/2016 History of IVDU (intravenous drug user) [F19.90]03/09/2016 Smoking greater than 10 pack years [F17.210] 03/09/2016 History of depression [Z86.59] 03/09/2016 Type 2 diabetes mellitus with complication, wit*03/09/2016 Alcohol-induced chronic pancreatitis (HCC) [K86*03/09/2016 History of ruptured aneurysm of thoracic aorta *03/09/2016 03/10/2016 Acute headache [R51.9] 03/09/2016 History of alcohol abuse [F10.11] 03/09/2016 History of dissection of thoracic aorta [Z86.79]03/10/2016 Preop testing [Z01.818] 03/16/2016 03/20/2016 Cardiac insufficiency (HCC) [I50.9] 03/19/2016 03/26/2016 Postoperative hypotension [I95.81] 03/19/2016 03/21/2016 Pain, postoperative, acute [G89.18] 03/19/2016 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] 03/20/2016 03/26/2016 Acute respiratory failure with hypoxia (HCC) [J*03/21/2016 03/26/2016 Fluid overload [E87.70] 03/21/2016 03/22/2016 Hypoxemia [R09.02] 03/23/2016 03/26/2016 Discharge planning issues [Z75.8] 03/26/2016 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] Pacemaker [Z95.0] Adrenal nodule (HCC) [E27.9] 08/09/2023 Acute kidney failure, unspecified (HCC) [N17.9] 01/03/2017 Anemia in CKD (chronic kidney disease) [N18.9, *08/09/2023 Aortic aneurysm (HCC) [I71.9] 08/09/2023 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 Chronic pancreatitis (HCC) [K86.1] 08/09/2023 Calcium deficiency [E58] 08/09/2023 Cirrhosis of liver (HCC) [K74.60] 08/09/2023 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 Normal [facility] CNOVSPon 11-15-2023 [facility] Visit (SP) Office ([place]) ANALILIA MELENDREZ ([id number]) 1960 M Date Time Provider Department 11/15/23 10:30 AM VANDANA EDWARDS During your visit today, we recorded the following information about you: Temperature Pulse Blood pressure Weight 97.7 degrees 106/minute 141/105 59.9 kg Height 1.778 m Vandana Edwards 11/15/2023 2:14 PM Signed Progress Note Analilia Melendrez 1960 Encounter date: 11/15/2023 HPI: Analilia Melendrez is a 63 year old male with PMHx, CKD, Aortic aneurysm, chronic pancreatitis, cirrhosis, T2DM, alcohol abuse, nicotine dependence. Pt referred by PCP, Marianna Wagner for evaluation of anemia. Mr. Melendrez presents today with family. He reports feeling ok. Denies fevers, chills or NS. Denies bony aches or pains. No rash, skin changes or neuropathy. Endorses lack of appetite, unintentional weight loss over the last few months. Now chronic diarrhea at min 6 times per day, orange. Occasionally bloody. On a bad day >10x per day. This has been ongoing for several months. Tested positive for cdiff 10/13/2024. He believes he took all abx as prescribed. He did not notice any difference in diarrhea. He states that he was unaware that he had c diff. Had to cancel last GI visit as he did not have a ride. He states he was told to go to the ED if no improvements however no further work up was performed. No colonoscopy or EDG in the last 20 years. He has been told that he had bleeding ulcers. Denies dark or tarry stools. Denies abd pains. Denies hematuria, hematemesis. No urinary issues. No SOB, CP, palpitations. Occasional headaches, uses NSAIDs. Occasional reflux. He was in residential for 6 weeks in june for rehab from seizure/TIA. Tolerating PO iron. No personal or family hx or bleeding disorders. Brother hx of leukemia. PAST MEDICAL HISTORY Diagnosis Date Alcohol-induced chronic pancreatitis (HCC) Anxiety Aortic aneurysm (HCC) S/P Repair Aortic valve disorder S/P Replacement CAD (coronary artery disease) nonobstructive Chronic kidney disease, stage III (moderate) ([facility]) Clostridioides difficile infection Coronary artery disease Depression Diabetes mellitus, type II (HCC) Insulin dependent History of alcohol abuse Hx of ascending aorta repair Hyperlipidemia Hypertension Non-ST elevation [place] (NSTEMI) ([facility]) 06/24 Pacemaker Paroxysmal atrial fibrillation (HCC) RBBB (right bundle branch block) S/P aortic valve replacement [facility] mechanical Syncope Tachy-fernando syndrome (HCC) Tobacco abuse chronic Tobacco user Type 2 diabetes mellitus (HCC) PAST SURGICAL HISTORY Procedure Laterality Date ABD AORTIC ANEURYSM REPAIR ASCENDING AORTA GRAFT W/AORTIC ROOT CORONARY ARTERY BYPASS GRAFT HX 2017 2006 HEART CATHETERIZATION 06/24/2016 HEART VALVE REPLACEMENT 2017 Aortic x2 ;2015 HERNIA REPAIR HX PACEMAKER 06/25/2016 REPLACEMENT AORTIC VALVE W BYPASS Current Outpatient Medications Medication Sig Dispense Refill metFORMIN (GLUCOPHAGE) 500 mg tablet Take 1 tablet by mouth daily with breakfast. Cholecalciferol, Vitamin D3, (VITAMIN D-3) 50 mcg (2,000 unit) cap Take 1 capsule by mouth once daily. 90 capsule 1 ferrous sulfate 325 mg (65 mg iron) tablet Take 1 tablet by mouth once daily. 30 tablet 2 Blood-Glucose Meter,Continuous (FREESTYLE MANGO 3 READER) [facility] Use to check blood sugar at least four (4) times daily. 1 Each 0 Blood-Glucose Sensor (FREESTYLE MANGO 3 SENSOR) daniel Apply new sensor every fourteen (14) days to upper arm. 6 Each 4 FARXIGA 10 mg tablet Take 1 tablet by mouth daily with breakfast. insulin glargine 100 unit/mL (3 mL) Inject 10 Units subcutaneously once daily. 1 Each 0 metoprolol tartrate, short acting, (LOPRESSOR) 50 mg tablet Take 1 tablet by mouth two times a day. 60 tablet 2 ramipril (ALTACE) 10 mg capsule Take 10 mg by mouth once daily. pantoprazole DR (PROTONIX) 40 mg tablet Take 1 tablet by mouth two times a day. 30 minutes before eating. 60 tablet 2 dicyclomine (BENTYL) 10 mg capsule Take 1 capsule by mouth before meals and at bedtime. 120 capsule 2 atorvastatin (LIPITOR) 40 mg tablet TAKE 1 TABLET BY MOUTH ONCE DAILY. 30 tablet 11 MULTIVITAMIN ORAL Take 1 tablet by mouth once daily. Insulin [place], Disposable, (NORBERTO PEN NEEDLE) 32 gauge x 5/32 ndle 1 application three times daily. 100 Each 1 No current facility-administered medications for this visit. ALLERGIES No Known Allergies FAMILY HISTORY Problem Relation Age of Onset Dementia Mother Coronary Artery Disease Father Social History Tobacco Use Smoking status: Every Day Types: Cigarettes Smokeless tobacco: Never Tobacco comments: Pt smoked 1 pack daily for x 40 years, pt has cut back to 1 pack per week x 1 year Substance Use Topics Alcohol use: Yes Alcohol/week: 2.0 standard drinks of alcohol Types: 2 Cans o (more content not included)... 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 Suzi Haynes MA 11/09/2023 1:54 PM Signed Patient informed of results and additional imaging ordered. Suzi Haynes MA Allergies As of Date: 11/07/2023 (No Known Allergies) Date Reviewed: 10/14/2023 Reviewed by: Marianna Wagner, VIRIDIANA.SPLUNK D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 - Fully Assessed Reason for Visit: Results [95] Orders [681] Primary Visit Diagnosis:Diarrhea, unspecified type [R19.7] Other Visit Diagnosis:Acute pancreatitis, unspecified complication status, unspecified pancreatitis type [K85.90] Order(s):CT PANCREAS W IVCON [[id number]] Order #: [id number] FUTURE Prescriptions as of 11/09/2023 - metFORMIN (GLUCOPHAGE) 500 mg tablet Take 1 tablet by mouth daily with breakfast. - Cholecalciferol, Vitamin D3, (VITAMIN D-3) 50 mcg (2,000 unit) cap Take 1 capsule by mouth once daily. - ferrous sulfate 325 mg (65 mg iron) tablet Take 1 tablet by mouth once daily. - Blood-Glucose Meter,Continuous (FREESTYLE MANGO 3 READER) [facility] Use to check blood sugar at least four (4) times daily. - Blood-Glucose Sensor (FREESTYLE MANGO 3 SENSOR) daniel Apply new sensor every fourteen (14) days to upper arm. - FARXIGA 10 mg tablet Take 1 tablet by mouth daily with breakfast. - insulin glargine 100 unit/mL (3 mL) Inject 10 Units subcutaneously once daily. - metoprolol tartrate, short acting, (LOPRESSOR) 50 mg tablet Take 1 tablet by mouth two times a day. - ramipril (ALTACE) 10 mg capsule 10 mg. - pantoprazole DR (PROTONIX) 40 mg tablet Take 1 tablet by mouth two times a day. 30 minutes before eating. - dicyclomine (BENTYL) 10 mg capsule Take 1 capsule by mouth before meals and at bedtime. - atorvastatin (LIPITOR) 40 mg tablet TAKE 1 TABLET BY MOUTH ONCE DAILY. - MULTIVITAMIN ORAL Take 1 tablet by mouth once daily. - Insulin [place], Disposable, (NORBERTO PEN NEEDLE) 32 gauge x 5/32 ndle 1 application three times daily. Problem List As Of Date 11/07/2023 Noted Resolved SUMMARY 03/09/2016 Acute thoracic aortic dissection (HCC) [I71.019]03/09/2016 Primary hypertension [I10] 03/09/2016 History of IVDU (intravenous drug user) [F19.90]03/09/2016 Smoking greater than 10 pack years [F17.210] 03/09/2016 History of depression [Z86.59] 03/09/2016 Type 2 diabetes mellitus with complication, wit*03/09/2016 Alcohol-induced chronic pancreatitis (HCC) [K86*03/09/2016 History of ruptured aneurysm of thoracic aorta *03/09/2016 03/10/2016 Acute headache [R51.9] 03/09/2016 History of alcohol abuse [F10.11] 03/09/2016 History of dissection of thoracic aorta [Z86.79]03/10/2016 Preop testing [Z01.818] 03/16/2016 03/20/2016 Cardiac insufficiency (HCC) [I50.9] 03/19/2016 03/26/2016 Postoperative hypotension [I95.81] 03/19/2016 03/21/2016 Pain, postoperative, acute [G89.18] 03/19/2016 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] 03/20/2016 03/26/2016 Acute respiratory failure with hypoxia (HCC) [J*03/21/2016 03/26/2016 Fluid overload [E87.70] 03/21/2016 03/22/2016 Hypoxemia [R09.02] 03/23/2016 03/26/2016 Discharge planning issues [Z75.8] 03/26/2016 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] Pacemaker [Z95.0] Adrenal nodule (HCC) [E27.9] 08/09/2023 Acute kidney failure, unspecified (HCC) [N17.9] 01/03/2017 Anemia in CKD (chronic kidney disease) [N18.9, *08/09/2023 Aortic aneurysm (HCC) [I71.9] 08/09/2023 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 Chronic pancreatitis (HCC) [K86.1] 08/09/2023 Calcium deficiency [E58] 08/09/2023 Cirrhosis of liver (HCC) [K74.60] 08/09/2023 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*08/09/2023 Cognitive communication deficit [R41.841] 05/21/2023 Depression [F32.A] 08/09/2023 Elevated liver enzymes [R74.8] 08/09/2023 GERD (gastroesophageal reflux disease) [K21.9] 08/09/2023 Hiatal hernia [K44.9] 08/09/2023 History of aortic valve replacement [Z95.2] 08/09/2023 Hepatic steatosis [K76.0] 08/09/2023 History of kidney stones [Z87.442] 08/09/2023 History of pacemaker [Z95.0] 08/09/2023 History of TIA (transient ischemic attack) [Z86*08/09/2023 Hyperlipidemia LDL goal <100 [E78.5] 08/09/2023 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 Normal [facility] .Auto Diffon 10-30-2023 Basophil, Absolute 0.1 10 3/mcL Normal 0.0-0.2 [facility] Comment on above: Performed By: #### A NITESH, ALC, MORPH, ACETA, CBC, LIP, ADIFF, TROPHS, MG, MDW, CMP, NICOLLE, GFR #### [address] [address] Basophils/100 WBC (Bld) 1.3 % Normal 0.0-2.5 [facility] Comment on above: Performed By: #### A NITESH, ALC, MORPH, ACETA, CBC, LIP, ADIFF, TROPHS, MG, MDW, CMP, NICOLLE, GFR #### [address] [address] Eosinophil, Absolute 0.0 10 3/mcL Normal 0.0-0.7 [facility] Comment on above: Performed By: #### A NITESH, ALC, MORPH, ACETA, CBC, LIP, ADIFF, TROPHS, MG, MDW, CMP, NICOLLE, GFR #### [address] [address] Eosinophils/100 WBC (Bld) 0.3 % Normal 0.0-7.0 [facility] Comment on above: Performed By: #### A NITESH, ALC, MORPH, ACETA, CBC, LIP, ADIFF, TROPHS, MG, MDW, CMP, NICOLLE, GFR #### [address] [address] Lymphocyte, Absolute 1.3 10 3/mcL Normal 0.9-4.3 [facility] Comment on above: Performed By: #### A NITESH, ALC, MORPH, ACETA, CBC, LIP, ADIFF, TROPHS, MG, MDW, CMP, NICOLLE, GFR #### [address] [address] Lymphocytes/100 WBC (Bld) 24.0 % Normal 20.0-40.0 [facility] Comment on above: Performed By: #### A NITESH, ALC, MORPH, ACETA, CBC, LIP, ADIFF, TROPHS, MG, MDW, CMP, NICOLLE, GFR #### [address] [address] Monocyte, Absolute 0.4 10 3/mcL Normal 0.1-1.4 [facility] Comment on above: Performed By: #### A NITESH, ALC, MORPH, ACETA, CBC, LIP, ADIFF, TROPHS, MG, MDW, CMP, NICOLLE, GFR #### [address] [address] Monocytes/100 WBC (Bld) 7.2 % Normal 2.0-13.0 [facility] Comment on above: Performed By: #### A NITESH, ALC, MORPH, ACETA, CBC, LIP, ADIFF, TROPHS, MG, MDW, CMP, NICOLLE, GFR #### [address] [address] Neutrophils/100 WBC (Bld) 67.2 % Normal 50.0-75.0 [facility] Comment on above: Performed By: #### A NITESH, ALC, MORPH, ACETA, CBC, LIP, ADIFF, TROPHS, MG, MDW, CMP, NICOLLE, GFR #### [address] [address] .GFRon 10-30-2023 GFR Non- 51 ml/min/1.73sqm Normal [facility] Comment on above: Result Comment: GFR Population mean for , [...] 15 mL/min/1.73 square meters Performed By: #### A NITESH, ALC, MORPH, ACETA, CBC, LIP, ADIFF, TROPHS, MG, MDW, CMP, NICOLLE, GFR #### [address] [address] GFR 61 ml/min/1.73sqm Normal [facility] Comment on above: Result Comment: GFR Population mean for , [...] 15 mL/min/1.73 square meters Performed By: #### A NITESH, ALC, MORPH, ACETA, CBC, LIP, ADIFF, TROPHS, MG, MDW, CMP, NICOLLE, GFR #### [address] [address] .MDWon 10-30-2023 Monocyte Distribution Width 16.35 Normal 0.00-20.00 [facility] Comment on above: Result Comment: For ED adult patients suspected of sepsis, MDW<=20.0 does not rule out sepsis or risk of sepsis Performed By: #### A NITESH, ALC, MORPH, ACETA, CBC, LIP, ADIFF, TROPHS, MG, MDW, CMP, NICOLLE, GFR #### [address] [address] .Morphon 10-30-2023 Macrocytosis 2+ Normal [facility] Comment on above: Performed By: #### A NITESH, ALC, MORPH, ACETA, CBC, LIP, ADIFF, TROPHS, MG, MDW, CMP, NICOLLE, GFR #### [address] [address] Platelet Estimate Normal Normal [facility] Comment on above: Performed By: #### A NITESH, ALC, MORPH, ACETA, CBC, LIP, ADIFF, TROPHS, MG, MDW, CMP, NICOLLE, GFR #### [address] [address] .NEUABSon 10-30-2023 Neutrophil, Absolute 3.6 10 3/mcL Normal 2.3-8.1 [facility] Comment on above: Performed By: #### A NITESH, ALC, MORPH, ACETA, CBC, LIP, ADIFF, TROPHS, MG, MDW, CMP, NICOLLE, GFR #### [place] [address] ACETAon 10-30-2023 Acetaminophen [Mass/Vol] 27.4 ug/mL Normal 10.0-30.0 [facility] Comment on above: Performed By: #### A NITESH, ALC, MORPH, ACETA, CBC, LIP, ADIFF, TROPHS, MG, MDW, CMP, NICOLLE, GFR #### [place] [address] Keren 10-30-2023 Ethanol Level <3 Normal 0-3 [facility] Comment on above: Performed By: #### A NITESH, ALC, MORPH, ACETA, CBC, LIP, ADIFF, TROPHS, MG, MDW, CMP, NICOLLE, GFR #### [address] [address] CBCon 10-30-2023 Erythrocyte distribution width (RBC) [Ratio] 14.8 % Normal 11.5-15.5 [facility] Comment on above: Performed By: #### A NITESH, ALC, MORPH, ACETA, CBC, LIP, ADIFF, TROPHS, MG, MDW, CMP, NICOLLE, GFR #### [place] [address] Hematocrit (Bld) [Volume fraction] 28.5 % Low 40.0-52.0 [facility] Comment on above: Performed By: #### A NITESH, ALC, MORPH, ACETA, CBC, LIP, ADIFF, TROPHS, MG, MDW, CMP, NICOLLE, GFR #### [place] [address] Hgb 9.8 G/dL Low 13.0-17.5 [facility] Comment on above: Performed By: #### A NITESH, ALC, MORPH, ACETA, CBC, LIP, ADIFF, TROPHS, MG, MDW, CMP, NICOLLE, GFR #### [place] [address] MCH (RBC) [Entitic mass] 38.1 pg High 27.0-33.0 [facility] Comment on above: Performed By: #### A NITESH, ALC, MORPH, ACETA, CBC, LIP, ADIFF, TROPHS, MG, MDW, CMP, NICOLLE, GFR #### [place] [address] MCHC 34.5 G/dL Normal 32.0-36.0 [facility] Comment on above: Performed By: #### A NITESH, ALC, MORPH, ACETA, CBC, LIP, ADIFF, TROPHS, MG, MDW, CMP, NICOLLE, GFR #### [place] [address] MCV (RBC) [Entitic vol] 110.2 fL High 81.0-100.0 [facility] Comment on above: Performed By: #### A NITESH, ALC, MORPH, ACETA, CBC, LIP, ADIFF, TROPHS, MG, MDW, CMP, NICOLLE, GFR #### [place] [address] Platelet 176 10 3/mcL Normal 150-450 [facility] Comment on above: Performed By: #### A NITESH, ALC, MORPH, ACETA, CBC, LIP, ADIFF, TROPHS, MG, MDW, CMP, NICOLLE, GFR #### [place] [address] Platelet mean volume (Bld) [Entitic vol] 8.8 fL Normal 6.4-10.5 [facility] Comment on above: Performed By: #### A NITESH, ALC, MORPH, ACETA, CBC, LIP, ADIFF, TROPHS, MG, MDW, CMP, NICOLLE, GFR #### [address] [address] RBC 2.58 10 6/mcL Low 4.50-6.00 [facility] Comment on above: Performed By: #### A NITESH, ALC, MORPH, ACETA, CBC, LIP, ADIFF, TROPHS, MG, MDW, CMP, NICOLLE, GFR #### [address] [address] WBC 5.3 10 3/mcL Normal 4.5-10.8 [facility] Comment on above: Performed By: #### A NITESH, ALC, MORPH, ACETA, CBC, LIP, ADIFF, TROPHS, MG, MDW, CMP, NICOLLE, GFR #### [address] [address] CMPon 10-30-2023 Albumin Level 1.9 G/dL Low 3.4-4.8 [facility] Comment on above: Performed By: #### A NITESH, ALC, MORPH, ACETA, CBC, LIP, ADIFF, TROPHS, MG, MDW, CMP, NICOLLE, GFR #### [address] [address] Albumin/Globulin [Mass ratio] 0.6 {ratio} Low 1.1-2.5 [facility] Comment on above: Performed By: #### A NITESH, ALC, MORPH, ACETA, CBC, LIP, ADIFF, TROPHS, MG, MDW, CMP, NICOLLE, GFR #### [address] [address] ALP [Catalytic activity/Vol] 105 U/L Normal 40-135 [facility] Comment on above: Performed By: #### A NITESH, ALC, MORPH, ACETA, CBC, LIP, ADIFF, TROPHS, MG, MDW, CMP, NICOLLE, GFR #### [address] [address] ALT [Catalytic activity/Vol] 19 U/L Normal 16-63 [facility] Comment on above: Performed By: #### A NITESH, ALC, MORPH, ACETA, CBC, LIP, ADIFF, TROPHS, MG, MDW, CMP, NICOLLE, GFR #### [address] [address] AST [Catalytic activity/Vol] 45 U/L High 10-40 [facility] Comment on above: Performed By: #### A NITESH, ALC, MORPH, ACETA, CBC, LIP, ADIFF, TROPHS, MG, MDW, CMP, NICOLLE, GFR #### [address] [address] Bili Total 0.2 mg/dL Normal 0.2-1.0 [facility] Comment on above: Result Comment: Use of this assay is not recommended for patients undergoing treatment with eltrombopag due to the potential for falsely elevated results. Performed By: #### A NITESH, ALC, MORPH, ACETA, CBC, LIP, ADIFF, TROPHS, MG, MDW, CMP, NICOLLE, GFR #### [address] [address] BUN/Creatinine Ratio 9 ratio Normal 7-27 [facility] Comment on above: Performed By: #### A NITESH, ALC, MORPH, ACETA, CBC, LIP, ADIFF, TROPHS, MG, MDW, CMP, NICOLLE, GFR #### [address] [address] Calcium [Mass/Vol] 7.9 mg/dL Low 8.4-10.2 [facility] Comment on above: Performed By: #### A NITESH, ALC, MORPH, ACETA, CBC, LIP, ADIFF, TROPHS, MG, MDW, CMP, NICOLLE, GFR #### [address] [address] Chloride [Moles/Vol] 103 mmol/L Normal 98-107 [facility] Comment on above: Performed By: #### A NITESH, ALC, MORPH, ACETA, CBC, LIP, ADIFF, TROPHS, MG, MDW, CMP, NICOLLE, GFR #### [address] [address] CO2 [Moles/Vol] 36 mmol/L High 23-31 [facility] Comment on above: Performed By: #### A NITESH, ALC, MORPH, ACETA, CBC, LIP, ADIFF, TROPHS, MG, MDW, CMP, NICOLLE, GFR #### [address] [address] Creatinine [Mass/Vol] 1.42 mg/dL High 0.70-1.30 [facility] Comment on above: Result Comment: Test ing performed on [employer] Dimension EXL analyzer using a modified kinetic Michael technique. Performed By: #### A NITESH, ALC, MORPH, ACETA, CBC, LIP, ADIFF, TROPHS, MG, MDW, CMP, NICOLLE, GFR #### [place] [address] Electrolyte Balance 5.0 mEq/L Normal 4.0-15.0 [facility] Comment on above: Performed By: #### A NITESH, ALC, MORPH, ACETA, CBC, LIP, ADIFF, TROPHS, MG, MDW, CMP, NICOLLE, GFR #### [place] [address] Globulin 3.2 G/dL Normal [facility] Comment on above: Performed By: #### A NITESH, ALC, MORPH, ACETA, CBC, LIP, ADIFF, TROPHS, MG, MDW, CMP, NICOLLE, GFR #### [place] [address] Glucose [Mass/Vol] 141 mg/dL High 80-115 [facility] Comment on above: Performed By: #### A NITESH, ALC, MORPH, ACETA, CBC, LIP, ADIFF, TROPHS, MG, MDW, CMP, NICOLLE, GFR #### [place] [id number] Potassium [Moles/Vol] 3.5 mmol/L Normal 3.5-5.1 [facility] Comment on above: Performed By: #### A NITESH, ALC, MORPH, ACETA, CBC, LIP, ADIFF, TROPHS, MG, MDW, CMP, NICOLLE, GFR #### [place] [phone] [place], [place] [address] Sodium [Moles/Vol] 144 mmol/L Normal 136-145 [facility] Comment on above: Performed By: #### A NITESH, ALC, MORPH, ACETA, CBC, LIP, ADIFF, TROPHS, MG, MDW, CMP, NICOLLE, GFR #### [place] [phone] [place], [place] [address] Total Protein 5.1 G/dL Low 6.4-8.2 [facility] Comment on above: Performed By: #### A NITESH, ALC, MORPH, ACETA, CBC, LIP, ADIFF, TROPHS, MG, MDW, CMP, NICOLLE, GFR #### [place] [phone] [place], [place] [address] Urea nitrogen [Mass/Vol] 13 mg/dL Normal 7-18 [facility] Comment on above: Performed By: #### A NITESH, ALC, MORPH, ACETA, CBC, LIP, ADIFF, TROPHS, MG, MDW, CMP, NICOLLE, GFR #### [address] [address] [address] ABD/PELVIS W/ IV CONTRAST ONLYon 10-30-2023 CT ABD/PELVIS W/ IV CONTRAST ONLY ORIGINAL EXAMINATION: CT OF THE ABDOMEN AND PELVIS WITH CONTRAST10/30/2023 5:09 pm TECHNIQUE: CT of the abdomen and pelvis was performed with the administration of intravenous contrast. Multiplanar reformatted images are provided for review. Automated exposure control, iterative reconstruction, and/or weight based adjustment of the mA/kV was utilized to reduce the radiation dose to as low as reasonably achievable. COMPARISON: CT abdomen pelvis 03/15/2023 HISTORY: ORDERING SYSTEM PROVIDED HISTORY: Reason for Exam: upper abdominal pain hx pancreatitis FINDINGS: The included lung bases are clear. There is no visible pleural or pericardial effusion. The heart is normal in size. Small subcentimeter hypodensities in both lobes of the liver are unchanged, likely small cysts. Diffuse hepatic steatosis with focal fatty sparing within Charmaine falciform ligament region. Atrophic pancreas with dilated main pancreatic duct with calcifications/calculi suggestive of chronic calcific pancreatitis. The spleen, adrenal glands, are within normal limits. The gallbladder is normal. The kidneys enhance symmetrically. No bilateral hydronephrosis. The large and small bowel demonstrate no obstruction. The appendix is normal. No free intraperitoneal fluid or gas is identified. The aorta is normal in caliber. There is moderate atherosclerosis of the larger arteries. This causes severe stenosis of the right common iliac artery and moderate stenosis of the left common iliac artery. There is no lymphadenopathy. The prostate is normal in size. No calculi seen in the urinary bladder. The abdominal wall is unremarkable. There is no acute fracture or aggressive osseous lesion. IMPRESSION: No acute abdominopelvic abnormality. Diffuse hepatic steatosis. Chronic calcific pancreatitis. Unchanged severe stenosis of the left common iliac artery and moderate stenosis of the right common iliac artery. I have personally reviewed the images of this examination and have edited the resident's findings and interpretation. Interpreted by: Narendra Gama Preliminary Report By: Wilman Ignacio Electronically signed By Narendra Gama Dictated Date: 10/30/2023 5:16:16 PM Prelim Date: 10/30/2023 5:25:34 PM Sign Date: 10/30/2023 5:39:58 PM Ordering Provider: ANN-MARIE DILLON [facility] CT HEAD OR BRAIN W/O CONTRAS Ton 10-30-2023 CT HEAD OR BRAIN W/O CONTRAST ORIGINAL EXAMINATION: CT OF THE HEAD WITHOUT CONTRAST 10/30/2023 5:09 pm TECHNIQUE: CT of the head was performed without the administration of intravenous contrast. Automated exposure control, iterative reconstruction, and/or weight based adjustment of the mA/kV was utilized to reduce the radiation dose to as low as reasonably achievable. COMPARISON: CT head March 15, 2023 HISTORY: ORDERING SYSTEM PROVIDED HISTORY: Reason for Exam: lightheadedness, dizzy FINDINGS: BRAIN/VENTRICLES: There is no acute intracranial hemorrhage, mass effect or midline shift. No abnormal extra-axial fluid collection. Old bilateral supratentorial insults. The davila-white differentiation is maintained without evidence of an acute infarct. There is no evidence of hydrocephalus. There are nonspecific hypoattenuating foci in the subcortical and periventricular white matter that most likely represent chronic microangiopathic ischemic changes in a patient of this age. Parenchymal volume loss. ORBITS: The visualized portion of the orbits demonstrate no acute abnormality. SINUSES: Nonspecific fluid in the mastoid air cells and middle ear cavities. Paranasal sinuses are predominantly clear. SOFT TISSUES/SKULL: No acute abnormality of the visualized skull. IMPRESSION: No acute intracranial abnormality. Nonspecific fluid in the mastoid air cells and middle ear cavities. Correlate with otological exam. Interpreted by: Aldo Torres Preliminary Report By: Aldo Torres Electronically signed By Aldo Torres Dictated Date: 10/30/2023 5:14:26 PM Prelim Date: 10/30/2023 5:19:12 PM Sign Date: 10/30/2023 5:19:12 PM Ordering Provider: ANN-MARIE White [facility] LABORATORYOrdered By: Jaspal Calix on 10-30-2023 Amphetamines Screen Ql (U) Negative *NA* (10/30/23 3:47 PM) Invalid Interpretation Code Negative AO ADM SS Appearance (U) Clear (10/30/23 3:47 PM) Normal Clear AO Auto Urine SS Barbiturates Screen Ql (U) Negative *NA* (10/30/23 3:47 PM) Invalid Interpretation Code Negative AO ADM SS Benzodiazepines Ql (U) Negative *NA* (10/30/23 3:47 PM) Invalid Interpretation Code Negative AO ADM SS Benzoylecgonine Screen Ql (U) Negative *NA* (10/30/23 3:47 PM) Invalid Interpretation Code Negative AO ADM SS Bilirubin Ql (U) Negative (10/30/23 3:47 PM) Normal Negative AO Auto Urine SS Cannabinoids Screen Ql (U) Negative *NA* (10/30/23 3:47 PM) Invalid Interpretation Code Negative AO ADM SS Color (U) Yellow (10/30/23 3:47 PM) Normal AO Auto Urine SS Glucose Test strip (U) [Mass/Vol] 500 mg/dL Invalid Interpretation Code Negative AO Auto Urine SS Hemoglobin Auto test strip (U) [Mass/Vol] Negative (10/30/23 3:47 PM) Normal Negative AO Auto Urine SS Ketones Ql (U) Negative Normal Negative AO Auto Urine SS Methadone Screen Ql (U) Negative *NA* (10/30/23 3:47 PM) Invalid Interpretation Code Negative AO ADM SS Opiates Screen Ql (U) Negative *NA* (10/30/23 3:47 PM) Invalid Interpretation Code Negative AO ADM SS Phencyclidine Ql (U) Negative *NA* (10/30/23 3:47 PM) Invalid Interpretation Code Negative AO ADM SS UA Leuk Est Negative (10/30/23 3:47 PM) Normal Negative AO Auto Urine SS UA Nitrite Negative (10/30/23 3:47 PM) Normal Negative AO Auto Urine SS UA pH 1 Invalid Interpretation Code AO Auto Urine SS UA Protein Negative Normal Negative AO Auto Urine SS UA Spec Grav 1.015 (10/30/23 3:47 PM) Normal 1.015-1.025 AO Auto Urine SS UA Specimen Type Not Given (10/30/23 3:47 PM) Normal AO Auto Urine SS UA Urobilinogen 0.2 E.U./dL Normal 0.2-1.0 AO Auto Urine SS Urine Drugs screened: See Below 5 (10/30/23 3:47 PM) Normal AO Chemistry S Comment on above: Interpretive Data: T his drug screen is a presumptive screening only. No confirmation will be performed unless requested. Drugs screened include: Threshold Amphetamines/Methamphetamines 1,000 ng/mL Barbiturates 200 ng/mL Benzodiazepine metabolites 200 ng/mL Cannabinoids (THC metabolites) 50 ng/mL Cocaine 300 ng/mL Opiates 300 ng/mL Methadone 300 ng/mL Phencyclidine (PCP) 25 ng/mL Testing has been performed FOR MEDICAL PURPOSES ONLY. LABORATORYOrdered By: SYSTEM SYSTEM on 10-30-2023 Acetaminophen [Mass/Vol] 27.4 ug/mL Normal 10.0 - 30.0 mcg/mL AO ADM SS Albumin BCP dye [Mass/Vol] 1.9 G/dL Low 3.4 - 4.8 G/dL AO ADM SS Albumin/Globulin [Mass ratio] 0.6 {ratio} Low 1.1 - 2.5 ratio AO ADM SS ALP [Catalytic activity/Vol] 105 U/L Normal 40 - 135 U/L AO ADM SS ALT With P-5'-P [Catalytic activity/Vol] 19 U/L Normal 16 - 63 U/L AO ADM SS AST With P-5'-P [Catalytic activity/Vol] 45 U/L High 10 - 40 U/L AO ADM SS Basophils (Bld) [#/Vol] 0.1 103/mcL Normal 0.0 - 0.2 10^3/mcL AO Workflow SS Basophils/100 WBC (Bld) 1.3 % Normal 0.0 - 2.5 % AO Workflow SS Bilirubin [Mass/Vol] 0.2 mg/dL Normal 0.2 - 1 .0 mg/dL AO ADM SS Comment on above: Interpretive Data: U se of this assay is not recommended for patients undergoing treatment with eltrombopag due to the potential for falsely elevated results. Calcium [Mass/Vol] 7.9 mg/dL Low 8.4 - 10. 2 mg/dL AO ADM SS Chloride [Moles/Vol] 103 mmol/L Normal 98 - 10 7 mmol/L AO ADM SS CO2 [Moles/Vol] 36 mmol/L High 23 - 31 mmol/L AO ADM SS Creatinine [Mass/Vol] 1.42 mg/dL High 0.70 - 1.30 mg/dL AO ADM SS Comment on above: Interpretive Data: T esting performed on [employer] Dimension EXL analyzer using a modified kinetic Michael technique. Electrolyte Balance 5.0 mEq/L Normal 4.0 - 15 .0 mEq/L AO ADM SS Eosinophil, Absolute 0.0 103/mcL Normal 0.0 - 0 .7 10^3/mcL AO Workflow SS Eosinophils/100 WBC (Bld) 0.3 % Normal 0.0 - 7.0 % AO Workflow SS Erythrocyte distribution width (RBC) [Ratio] 14.8 % Normal 11.5 - 15.5 % AO Workflow SS Ethanol [Mass/Vol] mg/dL Normal 0 - 3 mg/dL AO AD M SS GFR/1.73 sq M.predicted among blacks MDRD (S/P/Bld) [Vol rate/Area] 61 ml/min/1.73sqm Invalid Interpretation Code AO Chemistry S Comment on above: Interpretive Data: GFR Population mean for , Non- Americans Ages 20-29 = 116 mL/min/1.73 sq.m. Ages 30-39 = 107 mL/min/1.73 sq.m. Ages 40-49 = 99 mL/min/1.73 sq.m. Ages 50-59 = 93 mL/min/1.73 sq.m. Ages 60-69 = 85 mL/min/1.73 sq.m. Ages 70+ = 75 mL/min/1.73 sq.m. Chronic Kidney Disease: Less than 60 mL/min/1.73 square meters End Stage Renal Disease: Less than 15 mL/min/1.73 square meters GFR/1.73 sq M.predicted among non-blacks MDRD (S/P/Bld) [Vol rate/Area] 51 ml/min/1.73sqm Invalid Interpretation Code AO Chemistry S Comment on above: Interpretive Data: GFR Population mean for , Non- Americans Ages 20-29 = 116 mL/min/1.73 sq.m. Ages 30-39 = 107 mL/min/1.73 sq.m. Ages 40-49 = 99 mL/min/1.73 sq.m. Ages 50-59 = 93 mL/min/1.73 sq.m. Ages 60-69 = 85 mL/min/1.73 sq.m. Ages 70+ = 75 mL/min/1.73 sq.m. Chronic Kidney Disease: Less than 60 mL/min/1.73 square meters End Stage Renal Disease: Less than 15 mL/min/1.73 square meters Globulin 3.2 G/dL Invalid Interpretation Code AO ADM SS Glucose [Mass/Vol] 141 mg/dL High 80 - 115 mg/dL AO ADM SS Hematocrit (Bld) [Volume fraction] 28.5 % Low 40.0 - 52.0 % AO Workflow SS Hemoglobin (Bld) [Mass/Vol] 9.8 G/dL Low 13.0 - 17.5 G/dL AO Workflow SS Lipase [Catalytic activity/Vol] U/L 1 Low 16 - 77 U/L AO ADM SS Lymphocytes (Bld) [#/Vol] 1.3 103/mcL Normal 0.9 - 4.3 10^3/mcL AO Workflow SS Lymphocytes/100 WBC (Bld) 24.0 % Normal 20.0 - 40.0 % AO Workflow SS Macrocytes Ql (Bld) 2+ *NA* (10/30/23 3:40 PM) Invalid Interpretation Code AO Workflow SS Magnesium [Mass/Vol] 1.9 mg/dL Normal 1.8 - 2 .4 mg/dL AO ADM SS MCH (RBC) [Entitic mass] 38.1 pg High 27.0 - 33.0 pg AO Workflow SS MCHC 34.5 G/dL Normal 32.0 - 36.0 G/dL AO Workflow SS MCV (RBC) [Entitic vol] 110.2 fL High 81.0 - 100.0 fL AO Workflow SS Monocyte distribution width Auto (Bld) [Entitic vol] 16.35 1 Normal 0.00 - 20.00 AO Workflow SS Comment on above: Result Comment: For ED adult patients suspected of sepsis, MDW<=20.0 does not rule out sepsis or risk of sepsis Monocytes (Bld) [#/Vol] 0.4 103/mcL Normal 0.1 - 1.4 10^3/mcL AO Workflow SS Monocytes/100 WBC (Bld) 7.2 % Normal 2.0 - 13.0 % AO Workflow SS Neutrophils (Bld) [#/Vol] 3.6 103/mcL Normal 2.3 - 8.1 10^3/mcL AO Workflow SS Neutrophils/100 WBC (Bld) 67.2 % Normal 50.0 - 75.0 % AO Workflow SS Platelet mean volume (Bld) [Entitic vol] 8.8 fL Normal 6.4 - 10.5 fL AO Workflow SS Platelets (Bld) [#/Vol] 176 103/mcL Normal 150 - 450 10^3/mcL AO Workflow SS Platelets LM Ql (Bld) Normal *NA* (10/30/23 3:40 PM) Invalid Interpretation Code AO Workflow SS Potassium [Moles/Vol] 3.5 mmol/L Normal 3.5 - 5.1 mmol/L AO ADM SS Protein [Mass/Vol] 5.1 G/dL Low 6.4 - 8.2 G/dL AO ADM SS RBC (Bld) [#/Vol] 2.58 106/mcL Low 4.50 - 6.0 0 10^6/mcL AO Workflow SS Salicylates [Mass/Vol] 12.1 mg/dL Normal 2.8 - 20.0 mg/dL AO ADM SS Sodium [Moles/Vol] 144 mmol/L Normal 136 - 145 mmol/L AO ADM SS Troponin I.cardiac DL <= 0.01 ng/mL [Mass/Vol] 26 ng/L Normal 0 - 76 ng/L AO ADM SS Comment on above: Interpretive Data: H igh Sensitive Troponin I Reference Ranges: Female: 0-51 ng/L Male: 0-76 ng/L Testing performed on [employer]pire using a homogeneous sandwich chemiluminescent immunoassay based on [employer] technology. Urea nitrogen [Mass/Vol] 13 mg/dL Normal 7 - 18 mg/dL AO ADM SS Urea nitrogen/Creatinine [Mass ratio] 9 ratio Normal 7 - 27 ratio AO ADM SS WBC (Bld) [#/Vol] 5.3 103/mcL Normal 4.5 - 10.8 10^3/mcL AO Workflow SS LIPon 10-30-2023 Lipase Level <6 Low 16-77 [facility] Comment on above: Performed By: #### A NITESH, ALC, MORPH, ACETA, CBC, LIP, ADIFF, TROPHS, MG, MDW, CMP, NICOLLE, GFR #### [place] [address] MGon 10-30-2023 Magnesium [Mass/Vol] 1.9 mg/dL Normal 1.8-2.4 [facility] Comment on above: Performed By: #### A NITESH, ALC, MORPH, ACETA, CBC, LIP, ADIFF, TROPHS, MG, MDW, CMP, NICOLLE, GFR #### [address] [address] SAL 10-30-2023 Salicylate Level 12.1 mg/dL Normal 2.8-20.0 [facility] Comment on above: Performed By: #### A NITESH, ALC, MORPH, ACETA, CBC, LIP, ADIFF, TROPHS, MG, MDW, CMP, NICOLLE, GFR #### [address] [address] TROPHSon 10-30-2023 High Sensitivity Troponin I 26 ng/L Normal 0-76 [facility] Comment on above: Result Comment: High Sensitive Troponin I Reference Ranges: Female: 0-51 ng/L Male: 0-76 ng/L Testing performed on [employer]pire using a homogeneous sandwich chemiluminescent immunoassay based on [employer]il[employer] technology. Performed By: #### A NITESH, ALC, MORPH, ACETA, CBC, LIP, ADIFF, TROPHS, MG, MDW, CMP, NICOLLE, GFR #### [address] [address] UA 10-30-2023 Color (U) Yellow Normal [facility] Comment on above: Performed By: #### A NITESH, ALC, MORPH, ACETA, CBC, LIP, ADIFF, TROPHS, MG, MDW, CMP, NICOLLE, GFR #### [place] [id number] Glucose (U) [Mass/Vol] 500 mg/dL Abnormal Negative [facility] Comment on above: Performed By: #### A NITESH, ALC, MORPH, ACETA, CBC, LIP, ADIFF, TROPHS, MG, MDW, CMP, NICOLLE, GFR #### [address] [address] Ketones Ql (U) Negative Normal Negative [facility] Comment on above: Performed By: #### A NITESH, ALC, MORPH, ACETA, CBC, LIP, ADIFF, TROPHS, MG, MDW, CMP, NICOLLE, GFR #### [place] [address] UA Appear Clear Normal Clear [facility] Comment on above: Performed By: #### A NITESH, ALC, MORPH, ACETA, CBC, LIP, ADIFF, TROPHS, MG, MDW, CMP, NICOLLE, GFR #### [place] [address] UA Blood Negative Normal Negative [facility] Comment on above: Performed By: #### A NITESH, ALC, MORPH, ACETA, CBC, LIP, ADIFF, TROPHS, MG, MDW, CMP, NICOLLE, GFR #### [address] [address] UA Leuk Est Negative Normal Negative [facility] Comment on above: Performed By: #### A NITESH, ALC, MORPH, ACETA, CBC, LIP, ADIFF, TROPHS, MG, MDW, CMP, NICOLLE, GFR #### [address] [address] UA Nitrite Negative Normal Negative [facility] Comment on above: Performed By: #### A NITESH, ALC, MORPH, ACETA, CBC, LIP, ADIFF, TROPHS, MG, MDW, CMP, NICOLLE, GFR #### [place] [address] UA pH >=9.0 Normal [facility] Comment on above: Performed By: #### A NITESH, ALC, MORPH, ACETA, CBC, LIP, ADIFF, TROPHS, MG, MDW, CMP, NICOLLE, GFR #### [place] [address] UA Protein Negative Normal Negative [facility] Comment on above: Performed By: #### A NITESH, ALC, MORPH, ACETA, CBC, LIP, ADIFF, TROPHS, MG, MDW, CMP, NICOLLE, GFR #### [place] [address] UA Spec Grav 1.015 Normal 1.015-1.025 [facility] Comment on above: Performed By: #### A NITESH, ALC, MORPH, ACETA, CBC, LIP, ADIFF, TROPHS, MG, MDW, CMP, NICOLLE, GFR #### [place] [address] UA Specimen Type Not Given Normal [facility] Comment on above: Performed By: #### A NITESH, ALC, MORPH, ACETA, CBC, LIP, ADIFF, TROPHS, MG, MDW, CMP, NICOLLE, GFR #### [place] [address] UA Urobilinogen 0.2 E.U./dL Normal 0.2-1.0 [facility] Comment on above: Performed By: #### A NITESH, ALC, MORPH, ACETA, CBC, LIP, ADIFF, TROPHS, MG, MDW, CMP, NICOLLE, GFR #### [place] [address] Urobilinogen (U) [Mass/Vol] Negative Normal Negative [facility] Comment on above: Performed By: #### A NITESH, ALC, MORPH, ACETA, CBC, LIP, ADIFF, TROPHS, MG, MDW, CMP, NICOLLE, GFR #### [place] [address] UDRUGon 10-30-2023 Amphetamine (u) Negative Normal Negative [facility] Comment on above: Performed By: #### A NITESH, ALC, MORPH, ACETA, CBC, LIP, ADIFF, TROPHS, MG, MDW, CMP, NICOLLE, GFR #### [address] [address] Barbiturate (u) Negative Normal Negative [facility] Comment on above: Performed By: #### A NITESH, ALC, MORPH, ACETA, CBC, LIP, ADIFF, TROPHS, MG, MDW, CMP, NICOLLE, GFR #### [place] [address] Benzodiazepine (u) Negative Normal Negative [facility] Comment on above: Performed By: #### A NITESH, ALC, MORPH, ACETA, CBC, LIP, ADIFF, TROPHS, MG, MDW, CMP, NICOLLE, GFR #### [place] [address] Cannabinoid (u) Negative Normal Negative [facility] Comment on above: Performed By: #### A NITESH, ALC, MORPH, ACETA, CBC, LIP, ADIFF, TROPHS, MG, MDW, CMP, NICOLLE, GFR #### [place] [address] Cocaine Ql (U) Negative Normal Negative [facility] Comment on above: Performed By: #### A NITESH, ALC, MORPH, ACETA, CBC, LIP, ADIFF, TROPHS, MG, MDW, CMP, NICOLLE, GFR #### [address] [address] Methadone Ql (U) Negative Normal Negative [facility] Comment on above: Performed By: #### A NITESH, ALC, MORPH, ACETA, CBC, LIP, ADIFF, TROPHS, MG, MDW, CMP, NICOLLE, GFR #### [address] [address] Opiate (u) Negative Normal Negative [facility] Comment on above: Performed By: #### A NITESH, ALC, MORPH, ACETA, CBC, LIP, ADIFF, TROPHS, MG, MDW, CMP, NICOLLE, GFR #### [place] [address] PCP (u) Negative Normal Negative [facility] Comment on above: Performed By: #### A NITESH, ALC, MORPH, ACETA, CBC, LIP, ADIFF, TROPHS, MG, MDW, CMP, NICOLLE, GFR #### [address] [address] Urine Drugs screened: See Below Normal L [facility] Comment on above: Result Comment: This drug screen is a presumptive screening only. No confirmation will be performed unless requested. Drugs screened include: Threshold Amphetamines/Methamphetamines 1,000 ng/mL Barbiturates 200 ng/mL Benzodiazepine metabolites 200 ng/mL Cannabinoids (THC metabolites) 50 ng/mL Cocaine 300 ng/mL Opiates 300 ng/mL Methadone 300 ng/mL Phencyclidine (PCP) 25 ng/mL Testing has been performed FOR MEDICAL PURPOSES ONLY. Performed By: #### A NITESH, ALC, MORPH, ACETA, CBC, LIP, ADIFF, TROPHS, MG, MDW, CMP, NICOLLE, GFR #### [place] [id number] [place], [place] [address] XR CHEST 1 VIEWon 10-30-2023 XR CHEST 1 VIEW ORIGINAL EXAMINATION: ONE XRAY VIEW OF THE CHEST 10/30/2023 5:12 pm COMPARISON: 03/15/2023 HISTORY: ORDERING SYSTEM PROVIDED HISTORY: Reason for Exam: lightheadedness FINDINGS: There is a left chest wall pacemaker with appropriately placed leads. Sternotomy fixation wires are noted. Status post valve replacement. The cardiomediastinal silhouette appears normal. There is no focal consolidation. There is no pulmonary edema. There is no evidence of pleural effusion. There is no evidence of pneumothorax. No fracture is identified. IMPRESSION: No acute abnormality is identified. Interpreted by: Narendra Gama Preliminary Report By: Narendra Gama Electronically signed By Narendra Gama Dictated Date: 10/30/2023 5:22:48 PM Prelim Date: 10/30/2023 5:23:53 PM Sign Date: 10/30/2023 5:23:53 PM Ordering Provider: ANN-MARIE White [facility] Beatriz 10-22-2023 [facility] Letter Text Normal [facility] CT ABD/PEL WO IVCONon 2023 CT ABD/PEL WO IVCON * * *Final Report* * * DATE OF EXAM: Oct 21 2023 2:47PM [facility] [id number] - CT ABD/PEL WO IVCON / PROCEDURE REASON: multiple diagnoses * * * * Physician Interpretation * * * * EXAMINATION: CT ABDOMEN AND PELVIS WITHOUT IV CONTRAST CLINICAL HISTORY: Generalized abdominal pain. Diarrhea. Weight loss. TECHNIQUE: Non-IV contrast imaging of the abdomen and pelvis was performed using standard technique, scanning from just above the dome of the diaphragm to the symphysis pubis. Unenhanced imaging is limited for the evaluation of some intra-abdominal and pelvic pathology. MQ: [id number] Contrast: IV: None : ml of CT Radiation dose: Integrated Dose-length product (DLP) for this visit = 353 mGy*cm. CT Dose Reduction Employed: Automated exposure control(AEC) and iterative recon COMPARISON: None. RESULT: Abdomen / Pelvis: Liver: Left hepatic cysts. Normal morphology. Biliary: The gallbladder is unremarkable. No biliary dilatation. Spleen: No splenomegaly. Pancreas: Extensive pancreatic parenchymal calcifications and pancreatic duct dilatation.. Adrenals: No mass. Kidneys: No hydronephrosis. Bilateral 2 to 3 mm renal calculi. GI Tract: No bowel dilation. Lymph Nodes: No lymphadenopathy. Mesentery/peritoneum: No ascites. Retroperitoneum: No mass. Vasculature: Arterial atherosclerotic disease without aneurysm. Pelvis: No mass or ascites. The bladder has a normal appearance. Bones/Soft Tissues: Degenerative disease of the lumbar spine. Lower thorax: No pleural effusion or consolidation Localizer images: No additional findings. IMPRESSION: 1. No acute pathology 2. Extensive pancreatic parenchymal calcifications. Dilatation of the main pancreatic duct, possibly due to chronic pancreatitis. This could be further evaluated by dedicated CT or MRI of the pancreas. ACTIONABLE RESULT: FOLLOW-UP Acuity: Actionable Findings: Pancreas/Biliary Routing Code: PB_1 Recommendation: CT PANCREAS W IVCON Time Frame: At the discretion of the clinical team. COMMUNICATION: Results will be communicated with the ordering provider via [employer] staff message or phone message by [facility] within 2 business days of report finalization. --END OF FINDING-- Utilization Review Coordinator: SIGRID Transcribe Date/Time: Oct 21 2023 3:19P Dictated by : JOSSELIN CASTELAN MD This examination was interpreted and the report reviewed and electronically signed by: JOSSELIN CASTELAN MD on Oct 21 2023 3:31PM EST [id number] ACTIONABLE Invalid Interpretation Code [facility] CT Abdomen and Pelvis WO con trastOrdered By: [facility] Provider on 10-21-2023 Interpretation and review of laboratory results Abnormal [facility] Radiology Result ACTIONABLE [facility]normal [facility] Comment on above: This report contains an incidental or actionable finding. This finding may be a new finding separate from the reason your provider ordered the imaging test or it may be an already known finding that needs additional or continued follow-up. Because of this incidental or actionable finding, you may need another test (imaging or a different type of test). Please contact your provider for the next steps. [facility] CT Abdomen and Pelvis WO con traston 10-21-2023 IMPRESSION: 1. No acute pathology 2. Extensive pancreatic parenchymal calcifications. Dilatation of the main pancreatic duct, possibly due to chronic pancreatitis. This could be further evaluated by dedicated CT or MRI of the pancreas. ACTIONABLE RESULT: FOLLOW-UP Acuity: Actionable Findings: Pancreas/Biliary Routing Code: PB_1 Recommendation: CT PANCREAS W IVCON Time Frame: At the discretion of the clinical team. COMMUNICATION: Results will be communicated with the ordering provider via [employer] staff message or phone message by [facility] within 2 business days of report finalization. --END OF FINDING-- Utilization Review Coordinator: PSCB Transcribe Date/Time: Oct 21 2023 3:19P Dictated by : JOSSELIN CASTELAN MD This examination was interpreted and the report reviewed and electronically signed by: JOSSELIN CASTELAN MD on Oct 21 2023 3:31PM [facility] DIVISION OF RADIOLOGY * * *Final Report* * * DATE OF EXAM: Oct 21 2023 2:47PM [facility] 0531 - CT ABD/PEL WO IVCON / PROCEDURE REASON: multiple diagnoses * * * * Physician Interpretation * * * * EXAMINATION: CT ABDOMEN AND PELVIS WITHOUT IV CONTRAST CLINICAL HISTORY: Generalized abdominal pain. Diarrhea. Weight loss. TECHNIQUE: Non-IV contrast imaging of the abdomen and pelvis was performed using standard technique, scanning from just above the dome of the diaphragm to the symphysis pubis. Unenhanced imaging is limited for the evaluation of some intra-abdominal and pelvic pathology. MQ: CTAPWO_3 Contrast: IV: None : ml of CT Radiation dose: Integrated Dose-length product (DLP) for this visit = 353 mGy*cm. CT Dose Reduction Employed: Automated exposure control(AEC) and iterative recon COMPARISON: None. RESULT: Abdomen / Pelvis: Liver: Left hepatic cysts. Normal morphology. Biliary: The gallbladder is unremarkable. No biliary dilatation. Spleen: No splenomegaly. Pancreas: Extensive pancreatic parenchymal calcifications and pancreatic duct dilatation.. Adrenals: No mass. Kidneys: No hydronephrosis. Bilateral 2 to 3 mm renal calculi. GI Tract: No bowel dilation. Lymph Nodes: No lymphadenopathy. Mesentery/peritoneum: No ascites. Retroperitoneum: No mass. Vasculature: Arterial atherosclerotic disease without aneurysm. Pelvis: No mass or ascites. The bladder has a normal appearance. Bones/Soft Tissues: Degenerative disease of the lumbar spine. Lower thorax: No pleural effusion or consolidation Localizer images: No additional findings. DIVISION OF RADIOLOGY Provider, [facility] - 10/21/2023 * * *Final Report* * * DATE OF EXAM: Oct 21 2023 2:47PM [facility] 0531 - CT ABD/PEL WO IVCON / PROCEDURE REASON: multiple diagnoses * * * * Physician Interpretation * * * * EXAMINATION: CT ABDOMEN AND PELVIS WITHOUT IV CONTRAST CLINICAL HISTORY: Generalized abdominal pain. Diarrhea. Weight loss. TECHNIQUE: Non-IV contrast imaging of the abdomen and pelvis was performed using standard technique, scanning from just above the dome of the diaphragm to the symphysis pubis. Unenhanced imaging is limited for the evaluation of some intra-abdominal and pelvic pathology. MQ: CTAPWO_3 Contrast: IV: None : ml of CT Radiation dose: Integrated Dose-length product (DLP) for this visit = 353 mGy*cm. CT Dose Reduction Employed: Automated exposure control(AEC) and iterative recon COMPARISON: None. RESULT: Abdomen / Pelvis: Liver: Left hepatic cysts. Normal morphology. Biliary: The gallbladder is unremarkable. No biliary dilatation. Spleen: No splenomegaly. Pancreas: Extensive pancreatic parenchymal calcifications and pancreatic duct dilatation.. Adrenals: No mass. Kidneys: No hydronephrosis. Bilateral 2 to 3 mm renal calculi. GI Tract: No bowel dilation. Lymph Nodes: No lymphadenopathy. Mesentery/peritoneum: No ascites. Retroperitoneum: No mass. Vasculature: Arterial atherosclerotic disease without aneurysm. Pelvis: No mass or ascites. The bladder has a normal appearance. Bones/Soft Tissues: Degenerative disease of the lumbar spine. Lower thorax: No pleural effusion or consolidation Localizer images: No additional findings. IMPRESSION IMPRESSION: 1. No acute pathology 2. Extensive pancreatic parenchymal calcifications. Dilatation of the main pancreatic duct, possibly due to chronic pancreatitis. This could be further evaluated by dedicated CT or MRI of the pancreas. ACTIONABLE RESULT: FOLLOW-UP Acuity: Actionable Findings: Pancreas/Biliary Routing Code: PB_1 Recommendation: CT PANCREAS W IVCON Time Frame: At the discretion of the clinical team. COMMUNICATION: Results will be communicated with the ordering provider via [employer] staff message or phone message by [facility] within 2 business days of report finalization. --END OF FINDING-- Utilization Review Coordinator: PSCB Transcribe Date/Time: Oct 21 2023 3:19P Dictated by : JOSSELIN CASTELAN MD This examination was interpreted and the report reviewed and electronically signed by: JOSSELIN CASTELAN MD on Oct 21 2023 3:31PM EST [facility] Radiology Study observation (narrative) [facility] CNPN Telephone (HEMAWS) ANALILIA MELENDREZ ([id number]) 1960 M Date Time Provider Department 10/19/23 TRISH SILVERIO During your visit today, we recorded the following information about you: Gracie Tinsley 10/19/2023 11:26 AM Signed Patient is being referred to Dr Silverio. This patient is not appropriate to offer our virtual anemia clinic. DX: Anemia Insurance: [place] Medicaid Referred by: Marianna Wagner APRN.SPLUNK D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 Please review and advise Sabra Rios LPN 10/19/2023 12:10 PM Signed First available with KEITH Maloney NP, Stephanie 10/20/2023 8:39 AM Signed Spoke with patient and scheduled. Emani Torres Allergies As of Date: 10/19/2023 (No Known Allergies) Date Reviewed: 10/14/2023 Reviewed by: Marianna Wagner APRN.SPLUNK D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 - Fully Assessed Reason for Visit: New Patient [172] Prescriptions as of 10/20/2023 - vancomycin (VANCOCIN) 125 mg capsule Take 1 capsule by mouth four times daily for 10 days. - levoFLOXacin (LEVAQUIN) 250 mg tablet Take 1 tablet by mouth once daily for 7 days. - metFORMIN (GLUCOPHAGE) 500 mg tablet Take 1 tablet by mouth daily with breakfast. - Cholecalciferol, Vitamin D3, (VITAMIN D-3) 50 mcg (2,000 unit) cap Take 1 capsule by mouth once daily. - ferrous sulfate 325 mg (65 mg iron) tablet Take 1 tablet by mouth once daily. - Blood-Glucose Meter,Continuous (FREESTYLE MANGO 3 READER) [facility] Use to check blood sugar at least four (4) times daily. - Blood-Glucose Sensor (FREESTYLE MANGO 3 SENSOR) daniel Apply new sensor every fourteen (14) days to upper arm. - FARXIGA 10 mg tablet Take 1 tablet by mouth daily with breakfast. - insulin glargine 100 unit/mL (3 mL) Inject 10 Units subcutaneously once daily. - metoprolol tartrate, short acting, (LOPRESSOR) 50 mg tablet Take 1 tablet by mouth two times a day. - ramipril (ALTACE) 10 mg capsule 10 mg. - pantoprazole DR (PROTONIX) 40 mg tablet Take 1 tablet by mouth two times a day. 30 minutes before eating. - dicyclomine (BENTYL) 10 mg capsule Take 1 capsule by mouth before meals and at bedtime. - atorvastatin (LIPITOR) 40 mg tablet TAKE 1 TABLET BY MOUTH ONCE DAILY. - MULTIVITAMIN ORAL Take 1 tablet by mouth once daily. - Insulin [place], Disposable, (NORBERTO PEN NEEDLE) 32 gauge x 5/32 ndle 1 application three times daily. Problem List As Of Date 10/19/2023 Noted Resolved SUMMARY 03/09/2016 Acute thoracic aortic dissection (HCC) [I71.019]03/09/2016 Primary hypertension [I10] 03/09/2016 History of IVDU (intravenous drug user) [F19.90]03/09/2016 Smoking greater than 10 pack years [F17.210] 03/09/2016 History of depression [Z86.59] 03/09/2016 Type 2 diabetes mellitus with complication, wit*03/09/2016 Alcohol-induced chronic pancreatitis (HCC) [K86*03/09/2016 History of ruptured aneurysm of thoracic aorta *03/09/2016 03/10/2016 Acute headache [R51.9] 03/09/2016 History of alcohol abuse [F10.11] 03/09/2016 History of dissection of thoracic aorta [Z86.79]03/10/2016 Preop testing [Z01.818] 03/16/2016 03/20/2016 Cardiac insufficiency (HCC) [I50.9] 03/19/2016 03/26/2016 Postoperative hypotension [I95.81] 03/19/2016 03/21/2016 Pain, postoperative, acute [G89.18] 03/19/2016 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] 03/20/2016 03/26/2016 Acute respiratory failure with hypoxia (HCC) [J*03/21/2016 03/26/2016 Fluid overload [E87.70] 03/21/2016 03/22/2016 Hypoxemia [R09.02] 03/23/2016 03/26/2016 Discharge planning issues [Z75.8] 03/26/2016 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] Pacemaker [Z95.0] Adrenal nodule (HCC) [E27.9] 08/09/2023 Acute kidney failure, unspecified (HCC) [N17.9] 01/03/2017 Anemia in CKD (chronic kidney disease) [N18.9, *08/09/2023 Aortic aneurysm (HCC) [I71.9] 08/09/2023 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 Chronic pancreatitis (HCC) [K86.1] 08/09/2023 Calcium deficiency [E58] 08/09/2023 Cirrhosis of liver (HCC) [K74.60] 08/09/2023 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*08/09/2023 Cognitive communication deficit [R41.841] 05/21/2023 Depression [F32.A] 08/09/2023 Elevated liver enzymes [R74.8] 08/09/2023 GERD (gastroesophageal reflux disease) [K21.9] 08/09/2023 Hiatal hernia [K44.9] 08/09/2023 History of aortic valve replacement [Z95.2] 08/09/2023 Hepatic steatosis [K76.0] 08/09/2023 History of kidney stones [Z87.442] 08/09/2023 History of pacemaker [Z95.0] 08/09/2023 History of TIA (transient ischemic attack) [Z86*08/09/2023 Hyperlipidemia LDL goal <100 [E78.5] 08/09/2023 Hyperosmolar non-ketotic state in patient with *08/09/2023 Insomnia, unspecified [G47.00] 05/22/2023 Left ventricular hypertrophy [I51.7] 08/09/2023 Nicotine dependence, unspecified, uncomplicated* 7 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 Normal [facility] 10-17-2023 CNPN Telephone (OSCARFAMPLE) ANALILIA MELENDREZ ([id number]) 1960 M Date Time Provider Department 10/17/23 MARIANNA WAGNER During your visit today, we recorded the following information about you: Marianna Wagner APRN.SPLUNK D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 10/17/2023 2:34 PM Signed Stool positive for Cdiff- will treat with Vancomycin 125 mg 4 times a day for 10 days. He must complete the entire treatment. Urine was also positive for E.coli. He will need another antibiotic to cover this bacteria. Rx for Levaquin 250 mg daily for 7 days sent in. His iron studies are also abnormal. His is anemic and I'm concerned there may be an underlying problem with his GI system. He needs to get into GI chau. I am also referring him to hematology. Referral to Dr. Silverio in [place]. Suzi Haynes MA 10/18/2023 2:46 PM Signed Patient informed of all results, recommendations, appointment information and scripts sent in. Patient states he is going to have to move one of his appointments either the GI or the CT. Per conversation with Marianna Wagner SPLUNK D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 advised patient not to change GI appointment, left message for [facility] radiology to move patient's CT appointment. 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 difficile diarrhea [A04.72] E. coli UTI [N39.0, B96.20] Order(s):CONSULT TO HEMATOLOGY [9014] Order #: [id number]: 1 FUTURE vancomycin (VANCOCIN) 125 mg capsuleTake 1 capsule by mouth four times daily for 10 days.Disp: 40 capsuleRfl: 0 levoFLOXacin (LEVAQUIN) 250 mg tabletTake 1 tablet by mouth once daily for 7 days.Disp: 7 tabletRfl: 0 Prescriptions as of 10/22/2023 - vancomycin (VANCOCIN) 125 mg capsule Take 1 capsule by mouth four times daily for 10 days. - levoFLOXacin (LEVAQUIN) 250 mg tablet Take 1 tablet by mouth once daily for 7 days. - metFORMIN (GLUCOPHAGE) 500 mg tablet Take 1 tablet by mouth daily with breakfast. - Cholecalciferol, Vitamin D3, (VITAMIN D-3) 50 mcg (2,000 unit) cap Take 1 capsule by mouth once daily. - ferrous sulfate 325 mg (65 mg iron) tablet Take 1 tablet by mouth once daily. - Blood-Glucose Meter,Continuous (FREESTYLE MANGO 3 READER) [facility] Use to check blood sugar at least four (4) times daily. - Blood-Glucose Sensor (FREESTYLE MANGO 3 SENSOR) daniel Apply new sensor every fourteen (14) days to upper arm. - FARXIGA 10 mg tablet Take 1 tablet by mouth daily with breakfast. - insulin glargine 100 unit/mL (3 mL) Inject 10 Units subcutaneously once daily. - metoprolol tartrate, short acting, (LOPRESSOR) 50 mg tablet Take 1 tablet by mouth two times a day. - ramipril (ALTACE) 10 mg capsule 10 mg. - pantoprazole DR (PROTONIX) 40 mg tablet Take 1 tablet by mouth two times a day. 30 minutes before eating. - dicyclomine (BENTYL) 10 mg capsule Take 1 capsule by mouth before meals and at bedtime. - atorvastatin (LIPITOR) 40 mg tablet TAKE 1 TABLET BY MOUTH ONCE DAILY. - MULTIVITAMIN ORAL Take 1 tablet by mouth once daily. - Insulin [place], Disposable, (NORBERTO PEN NEEDLE) 32 gauge x 5/32 ndle 1 application three times daily. Problem List As Of Date 10/17/2023 Noted Resolved SUMMARY 03/09/2016 Acute thoracic aortic dissection (HCC) [I71.019]03/09/2016 Primary hypertension [I10] 03/09/2016 History of IVDU (intravenous drug user) [F19.90]03/09/2016 Smoking greater than 10 pack years [F17.210] 03/09/2016 History of depression [Z86.59] 03/09/2016 Type 2 diabetes mellitus with complication, wit*03/09/2016 Alcohol-induced chronic pancreatitis (HCC) [K86*03/09/2016 History of ruptured aneurysm of thoracic aorta *03/09/2016 03/10/2016 Acute headache [R51.9] 03/09/2016 History of alcohol abuse [F10.11] 03/09/2016 History of dissection of thoracic aorta [Z86.79]03/10/2016 Preop testing [Z01.818] 03/16/2016 03/20/2016 Cardiac insufficiency (HCC) [I50.9] 03/19/2016 03/26/2016 Postoperative hypotension [I95.81] 03/19/2016 03/21/2016 Pain, postoperative, acute [G89.18] 03/19/2016 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] 03/20/2016 03/26/2016 Acute respiratory failure with hypoxia (HCC) [J*03/21/2016 03/26/2016 Fluid overload [E87.70] 03/21/2016 03/22/2016 Hypoxemia [R09.02] 03/23/2016 03/26/2016 Discharge planning issues [Z75.8] 03/26/2016 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 Normal [facility] ALBUMIN/CREATININE RATIO, UR INEon 10-16-2023 Albumin DL <= 20 mg/L (U) [Mass/Vol] 135.3 mg/L [facility] Albumin/Creatinine (U) [Mass ratio] 359 mg/g High NINF - 30 mg/g [facility] Comment on above: Adult Male and Femal e Nephrotic Criteria: <30 mg/g is considered normal to mildly increased 30-300 mg/g is considered moderately increased >300 mg/g is considered severely increased KDIGO. (2013). KDIGO 2012 Clinical Practice Guideline for the Evaluation and Management of Chronic Kidney Disease. Official Journal of the International Society of Nephrology, 3(1), 1-150. Creatinine (U) [Mass/Vol] 37.7 mg/dL 20.0 - 300.0 mg/dL [facility] Interpretation and review of laboratory results Abnormal [facility] ALBUMIN/CREATININE RATIO, UR INEon 10-15-2023 Albumin DL <= 20 mg/L (U) [Mass/Vol] 135.3 mg/L Normal [facility] Comment on above: Order Comment: Speci men Type: URINE SPECIMENOrdering Facility: [facility] Address: [address] [place] [address] Performed By: #### U ACR ####[facility] LABCLIA [id number] [facility] [id number] [place] [address] [place] Albumin/Creatinine (U) [Mass ratio] 359 mg/g High <30 [facility] Comment on above: Order Comment: Speci men Type: URINE SPECIMENOrdering Facility: [facility] Address: [address] [place] [address] Result Comment: Adul t Male and Female Nephrotic Criteria: <30 mg/g is considered normal to mildly increased 30-300 mg/g is considered moderately increased >300 mg/g is considered severely increased KDIGO. (2013). KDIGO 2012 Clinical Practice Guideline for the Evaluation and Management of Chronic Kidney Disease. Official Journal of the International Society of Nephrology, 3(1), 1-150. Performed By: #### U ACR ####[facility] LABCLIA [id number] [place] [address] [place] Creatinine (U) [Mass/Vol] 37.7 mg/dL Normal 20.0-300.0 [facility] Comment on above: Order Comment: Speci men Type: URINE SPECIMENOrdering Facility: [facility] Address: [address] [place] [address] Performed By: #### U ACR ####[facility] LABCLIA [id number] [place] [address] [place] CBC W Auto Differential pane l (Bld)on 10-15-2023 Basophils (Bld) [#/Vol] 0.00 10*3/uL Normal <0.11 [facility] Comment on above: Order Comment: Speci men Type: BLOOD SPECIMENOrdering Facility: [facility] Address: [address] [place] [address] Performed By: #### 5 7021-8 ####[facility] LABCLIA [id number] [place] [address] [place] Basophils/100 WBC (Bld) 0.0 % Normal [facility] Comment on above: Order Comment: Speci men Type: BLOOD SPECIMENOrdering Facility: [facility] Address: [address] [place] [address] Performed By: #### 5 7021-8 ####[facility] LABCLIA [id number] [place] [address] [place] Differential cell count method Nom (Bld) Manual Normal [facility] Comment on above: Order Comment: Speci men Type: BLOOD SPECIMENOrdering Facility: [facility] Address: [address] [place] [address] Performed By: #### 5 7021-8 ####[facility] LABCLIA [id number] [place] [address] [place] Eosinophils (Bld) [#/Vol] 0.00 10*3/uL Normal <0.46 [facility] Comment on above: Order Comment: Speci men Type: BLOOD SPECIMENOrdering Facility: [facility] Address: [address] [place] [address] Performed By: #### 5 7021-8 ####[facility] LABCLIA [id number] [place] [address] [place] Eosinophils/100 WBC (Bld) 0.0 % Normal [facility] Comment on above: Order Comment: Speci men Type: BLOOD SPECIMENOrdering Facility: [facility] Address: [address] [place] [address] Performed By: #### 5 7021-8 ####[facility] LABCLIA [id number] [place] [address] [place] Erythrocyte distribution width (RBC) [Ratio] 13.3 % Normal 11.5-15.0 [facility] Comment on above: Order Comment: Speci men Type: BLOOD SPECIMENOrdering Facility: [facility] Address: [address] [place] [address] Performed By: #### 5 7021-8 ####[facility] LABCLIA [id number] [place] [address] [place] Hematocrit (Bld) [Volume fraction] 31.8 % Low 39.0-51.0 [facility] Comment on above: Order Comment: Speci men Type: BLOOD SPECIMENOrdering Facility: [facility] Address: [address] [place] [address] Performed By: #### 5 7021-8 ####[facility] LABCLIA [id number] [place] [address] [place] Hemoglobin (Bld) [Mass/Vol] 10.0 g/dL Low 13.0-17.0 [facility] Comment on above: Order Comment: Speci men Type: BLOOD SPECIMENOrdering Facility: [facility] Address: [address] [place] [address] Performed By: #### 5 7021-8 ####[facility] LABIA [id number] [place] [address] [place] Lymphocytes (Bld) [#/Vol] 1.82 10*3/uL Normal 1.00-4.00 [facility] Comment on above: Order Comment: Speci men Type: BLOOD SPECIMENOrdering Facility: [facility] Address: [address] [place] [address] Performed By: #### 5 7021-8 ####[facility] LABCLIA [id number] [place] [address] [place] Lymphocytes/100 WBC (Bld) 39.0 % Normal [facility] Comment on above: Order Comment: Speci men Type: BLOOD SPECIMENOrdering Facility: [facility] Address: [address] [place] [address] Performed By: #### 5 7021-8 ####[facility] LABCLIA [id number] [place] [address] [place] MCH (RBC) [Entitic mass] 37.3 pg High 26.0-34.0 [facility] Comment on above: Order Comment: Speci men Type: BLOOD SPECIMENOrdering Facility: [facility] Address: [address] [place] [address] Performed By: #### 5 7021-8 ####[facility] LABCLIA [id number] [place] [address] [place] MCHC (RBC) [Mass/Vol] 31.4 g/dL Normal 30.5-36.0 [facility] Comment on above: Order Comment: Speci men Type: BLOOD SPECIMENOrdering Facility: [facility] Address: [address] [place] [address] Performed By: #### 5 7021-8 ####[facility] LABIA [id number] [place] [address] [place] MCV (RBC) [Entitic vol] 118.7 fL High 80.0-100.[address] [facility] Comment on above: Order Comment: Speci men Type: BLOOD SPECIMENOrdering Facility: [facility] Address: [address] [place] [address] Performed By: #### 5 7021-8 ####[facility] LABIA [id number] [place] [address] [place] Monocytes (Bld) [#/Vol] 0.51 10*3/uL Normal <0.87 [facility] Comment on above: Order Comment: Speci men Type: BLOOD SPECIMENOrdering Facility: [facility] Address: [address] [place] [address] Performed By: #### 5 7021-8 ####[facility] LABIA [id number] [place] [address] [place] Monocytes/100 WBC (Bld) 11.0 % Normal C [facility] Comment on above: Order Comment: Speci men Type: BLOOD SPECIMENOrdering Facility: [facility] Address: [address] [place] [address] Performed By: #### 5 7021-8 ####[facility] LABCLIA [id number] [place] [address] [place] MYELO% 1.0 % Normal [facility] Comment on above: Order Comment: Speci men Type: BLOOD SPECIMENOrdering Facility: [facility] Address: [address] [place] [address] Performed By: #### 5 7021-8 ####[facility] LABCLIA [id number] [place] [address] [place] Neutrophils (Bld) [#/Vol] 2.29 10*3/uL Normal 1.45-7.50 [facility] Comment on above: Order Comment: Speci men Type: BLOOD SPECIMENOrdering Facility: [facility] Address: [address] [place] [address] Performed By: #### 5 7021-8 ####[facility] LABCLIA [id number] [place] [address] [place] Neutrophils/100 WBC (Bld) 49.0 % Normal [facility] Comment on above: Order Comment: Speci men Type: BLOOD SPECIMENOrdering Facility: [facility] Address: [address] [place] [address] Performed By: #### 5 7021-8 ####[facility] LABCLIA [id number] [place] [address] [place] Nucleated RBC (Bld) [#/Vol] 10*3/uL Normal <0.01 [facility] Comment on above: Order Comment: Speci men Type: BLOOD SPECIMENOrdering Facility: [facility] Address: [address] [place] [address] Performed By: #### 5 7021-8 ####[facility] LABCLIA [id number] [place] [address] [place] Nucleated RBC/100 WBC (Bld) [Ratio] 0.0 /100 WBC Normal [facility] Comment on above: Order Comment: Speci men Type: BLOOD SPECIMENOrdering Facility: [facility] Address: [address] [place] [address] Performed By: #### 5 7021-8 ####[facility] LABCLIA [id number] [place] [address] [place] Ovalocytes LM Ql (Bld) Few Normal Cl [facility] Comment on above: Order Comment: Speci men Type: BLOOD SPECIMENOrdering Facility: [facility] Address: [address] [place] [address] Performed By: #### 5 7021-8 ####[facility] LABCLIA [id number] [place] [address] [place] Platelet mean volume (Bld) [Entitic vol] 11.6 fL Normal 9.0-12.7 [facility] Comment on above: Order Comment: Speci men Type: BLOOD SPECIMENOrdering Facility: [facility] Address: [address] [place] [address] Performed By: #### 5 7021-8 ####[facility] LABCLIA [id number] [place] [address] [place] Platelets (Bld) [#/Vol] 202 10*3/uL Normal 150-400 [facility] Comment on above: Order Comment: Speci men Type: BLOOD SPECIMENOrdering Facility: [facility] Address: [address] [place] [address] Performed By: #### 5 7021-8 ####[facility] LABCLIA [id number] [place] [address] [place] Platelets Estimate (Bld) [#/Vol] Adequate Normal [facility] Comment on above: Order Comment: Speci men Type: BLOOD SPECIMENOrdering Facility: [facility] Address: [address] [place] [address] Performed By: #### 5 7021-8 ####[facility] LABCLIA [id number] [place] [address] [place] RBC (Bld) [#/Vol] 2.68 10*6/uL Low 4.20-6.00 [facility] Comment on above: Order Comment: Speci men Type: BLOOD SPECIMENOrdering Facility: [facility] Address: [address] [place] [address] Performed By: #### 5 7021-8 ####[facility] LABCLIA [id number] [place] [address] [place] RBC FRAGMENTS Few Abnormal None Seen [facility] Comment on above: Order Comment: Speci men Type: BLOOD SPECIMENOrdering Facility: [facility] Address: [address] [place] [address] Performed By: #### 5 7021-8 ####[facility] LABCLIA [id number] [place] [address] [place] RED CELL MORPH Reviewed: see result s of individual morphologies Normal [facility] Comment on above: Order Comment: Speci men Type: BLOOD SPECIMENOrdering Facility: [facility] Address: [address] [place] [address] Performed By: #### 5 7021-8 ####[facility] LABCLIA [id number] [place] [address] [place] WBC (Bld) [#/Vol] 4.67 10*3/uL Normal 3.70-11.00 [facility] Comment on above: Order Comment: Speci men Type: BLOOD SPECIMENOrdering Facility: [facility] Address: [address] [place] [address] Performed By: #### 5 7021-8 ####[facility] LABCLIA [id number] [place] [address] [place] WBC Left Shift Ql (Bld) Present [facility] Comment on above: Order Comment: Speci men Type: BLOOD SPECIMENOrdering Facility: [facility] Address: [address] [place] [address] Performed By: #### 5 7021-8 ####[facility] LABCLIA [id number] [place] [address] [place] Comprehensive metabolic 2000 panelon 10-15-2023 Albumin [Mass/Vol] 2.4 g/dL Low 3.9-4.9 [facility] Comment on above: Order Comment: Speci men Type: BLOOD SPECIMENOrdering Facility: [facility] Address: [address] [place] [address] Performed By: #### 2 4323-8, 2276-4, 63381-4 ####[facility] LABCLIA [id number] [place] [address] [place] ALP [Catalytic activity/Vol] 134 U/L High 38-113 [facility] Comment on above: Order Comment: Speci men Type: BLOOD SPECIMENOrdering Facility: [facility] Address: [address] [place] [address] Performed By: #### 2 4323-8, 6-4, 28861-3 ####[facility] LABCLIA [id number] [place] [address] [place] ALT [Catalytic activity/Vol] 26 U/L Normal 10-54 [facility] Comment on above: Order Comment: Speci men Type: BLOOD SPECIMENOrdering Facility: [facility] Address: [address] [place] [address] Performed By: #### 2 4323-8, 6-4, 73181-8 ####[facility] LABCLIA [id number] [place] [address] [place] Anion gap [Moles/Vol] 11 mmol/L Normal 8-15 [facility] Comment on above: Order Comment: Speci men Type: BLOOD SPECIMENOrdering Facility: [facility] Address: [address] [place] [address] Performed By: #### 2 4323-8, 6-4, 54286-1 ####[facility] LABCLIA [id number] [place] [id number] [place] AST [Catalytic activity/Vol] 64 U/L High 14-40 [facility] Comment on above: Order Comment: Speci men Type: BLOOD SPECIMENOrdering Facility: [facility] Address: [address] [place] [address] Performed By: #### 2 4323-8, 2275-, 20054-5 ####[facility] LABCLIA [id number] [place] [address] [place] Bilirubin [Mass/Vol] mg/dL Low 0.2-1.3 [facility] Comment on above: Order Comment: Speci men Type: BLOOD SPECIMENOrdering Facility: [facility] Address: [address] [place] [address] Performed By: #### 2 4323-8, 2275-, 17509-3 ####[facility] LABCLIA [id number] [place] [address] [place] Calcium [Mass/Vol] 7.9 mg/dL Low 8.5-10.2 [facility] Comment on above: Order Comment: Speci men Type: BLOOD SPECIMENOrdering Facility: [facility] Address: [address] [place] [address] Performed By: #### 2 4323-8, 2275-, 21352-3 ####[facility] LABCLIA [id number] [place] [address] [place] Chloride [Moles/Vol] 103 mmol/L Normal 98-107 [facility] Comment on above: Order Comment: Speci men Type: BLOOD SPECIMENOrdering Facility: [facility] Address: [address] [place] [address] Performed By: #### 2 4323-8, 2275-, 55631-4 ####[facility] LABCLIA [id number] [facility] [place] [id number] [place] CO2 [Moles/Vol] 28 mmol/L Normal 22-30 [facility] Comment on above: Order Comment: Speci men Type: BLOOD SPECIMENOrdering Facility: [facility] Address: [address] [place] [id number] Performed By: #### 2 4323-8, 6-4, 69985-8 ####[facility] LABCLIA [id number] [address] [address] [place] Creatinine [Mass/Vol] 1.55 mg/dL High 0.73-1.22 [facility] Comment on above: Order Comment: Speci men Type: BLOOD SPECIMENOrdering Facility: [facility] Address: [address] [place] [address] Performed By: #### 2 4323-8, 2275-, 20694-8 ####[facility] LABIA [id number] [place] [address] [place] Creatinine and Glomerular filtration rate.predicted panel (S/P/Bld) 51 mL/min/1.73m??? Low >=60 [facility] Comment on above: Order Comment: Speci men Type: BLOOD SPECIMENOrdering Facility: [facility] Address: [address] [place] [address] Result Comment: Gurwinder mated Glomerular Filtration Rate (eGFR) is calculated using the 2020 CKD-EPI creatinine equation. This equation utilizes serum creatinine, sex, and age as parameters. The creatinine assay has traceable calibration to isotope dilution-mass spectrometry. Refer to KDIGO guidelines for clinical interpretation. In patients with unstable renal function, e.g. those with acute kidney injury, the eGFR may not accurately reflect actual GFR. Performed By: #### 2 4323-8, 6-4, 47483-6 ####[facility] LABIA [id number] [place] [id number] [place] Glucose [Mass/Vol] 130 mg/dL High 74-99 [facility] Comment on above: Order Comment: Speci men Type: BLOOD SPECIMENOrdering Facility: [facility] Address: [address] [place] [address] Result Comment: The [place] [employer] (ADA) provides guidance for cutoff values for fasting glucose and random glucose. The ADA defines fasting as no caloric intake for at least 8 hours. Fasting plasma glucose results between 100 to 125 [...] Standards of Medical Care in Diabetes 2016, [place] [employer]. Diabetes Care. 2016.39(Suppl 1). Performed By: #### 2 4323-8, 2276-4, 45385-1 ####[facility] LABIA [id number] [place] [address] [place] Potassium [Moles/Vol] 4.8 mmol/L Normal 3.7-5.1 [facility] Comment on above: Order Comment: Speci men Type: BLOOD SPECIMENOrdering Facility: [facility] Address: [address] [place] [address] Performed By: #### 2 4323-8, 6-4, 78309-9 ####[facility] LABIA [id number] [place] [address] [place] Protein [Mass/Vol] 5.2 g/dL Low 6.3-8.0 [facility] Comment on above: Order Comment: Speci men Type: BLOOD SPECIMENOrdering Facility: [facility] Address: [address] [place] [address] Performed By: #### 2 4323-8, 6-4, 10336-7 ####[facility] LABIA [id number] [place] [address] [place] Sodium [Moles/Vol] 142 mmol/L Normal 136-144 [facility] Comment on above: Order Comment: Speci men Type: BLOOD SPECIMENOrdering Facility: [facility] Address: [address] [place] [address] Performed By: #### 2 4323-8, 2276-4, 40753-7 ####[facility] LABIA [id number] [place] [id number] [place] Urea nitrogen [Mass/Vol] 14 mg/dL Normal 9-24 [facility] Comment on above: Order Comment: Speci men Type: BLOOD SPECIMENOrdering Facility: [facility] Address: [address] [place] [address] Performed By: #### 2 4323-8, 2276-4, 07148-9 ####[facility] LABIA [id number] [place] [address] [place] Ferritin SerPl-mCncon 2023 Ferritin [Mass/Vol] 630.0 ng/mL High 30.3-565.7 [facility] Comment on above: Order Comment: Speci men Type: BLOOD SPECIMENOrdering Facility: [facility] Address: [address] [place] [address] Performed By: #### 2 4323-8, 2276-4, 60117-0 ####[facility] LABIA [id number] [place] [address] [place] Folate SerPl-mCncon 10-15-19 24 Folate [Mass/Vol] 16.4 ng/mL Normal >4.7 [facility] Comment on above: Order Comment: Speci men Type: BLOOD SPECIMENOrdering Facility: [facility] Address: [address] [place] [address] Performed By: #### 2 284-8, 2132-9 ####[facility] [id number] [place] [address] [place] Iron and Iron binding capaci ty panelon 10-15-2023 Iron [Mass/Vol] 96 ug/dL Normal 41-186 [facility] Comment on above: Order Comment: Speci men Type: BLOOD SPECIMENOrdering Facility: [facility] Address: [address] [place] [address] Performed By: #### 2 4323-8, 2276-4, 79173-8 ####[facility] LABIA [id number] [place] [address] [place] Iron binding capacity [Mass/Vol] <113 Low 232-386 [facility] Comment on above: Order Comment: Speci men Type: BLOOD SPECIMENOrdering Facility: [facility] Address: [address] [place] [address] Performed By: #### 2 4323-8, 2276-4, 24933-7 ####[facility] LABIA [id number] [place] [address] [place] Iron/TIBC [Molar ratio] >85.0 High 15.0-57.[address] [facility] Comment on above: Order Comment: Speci men Type: BLOOD SPECIMENOrdering Facility: [facility] Address: [address] [place] [address] Performed By: #### 2 4323-8, 2276-4, 67247-1 ####[facility] LABIA [id number] [place] [address] [place] Urinalysis complete panel (U )on 10-15-2023 Bacteria uL 1095.3 uL High Negative [facility] Bilirubin Ql (U) Negative Negative [facility] Clarity (Unsp spec) Turbid Abnormal Clear [facility] Color (U) Yellow Yellow [facility] Epithelial cells LM.HPF (Urine sed) [#/Area] None Seen /HPF [facility] Glucose Test strip (U) [Mass/Vol] 3+ Abnormal Negative [facility] Hemoglobin Ql (U) 1+ Abnormal Negative [facility] Hyaline casts (Urine sed) [#/Area] 0 /[LPF] 0 /LPF [facility] Interpretation and review of laboratory results Abnormal [facility] Ketones Ql (U) Negative [facility] Leukocyte esterase Test strip Ql (U) 2+ Abnormal Negative [facility] Nitrite Ql (U) Negative Negative [facility] pH (U) 8.0 [pH] NINF - 8.5 [facility] Protein (U) [Mass/Vol] 1+ Abnormal Negative [facility] RBC LM.HPF (Urine sed) [#/Area] 6-10 /HPF Abnormal 0-2 /HPF [facility] Specific gravity (U) [Rel density] 1.020 1.005 - 1.030 [facility] Urobilinogen Ql (U) 0.2 EU/dL 0.2-1.0 EU/dL [facility] WBC LM.HPF (Urine sed) [#/Area] /[HPF] Abnormal 0-5 /HPF [facility] This test was develo ped and its performance characteristics determined by [facility]'s [facility] Pathology and Laboratory Medicine [place] ([facility]). It has not been cleared or approved by the FDA. [facility] is regulated under CLIA as qualified to perform high-complexity testing. This test is used for clinical purposes. It should not be regarded as investigational or for research. [facility] BACTERIA UL 1095.3 uL High Negative [facility] Comment on above: Order Comment: Speci men Type: URINE SPECIMENOrdering Facility: [facility] Address: [address] [place] [address] Performed By: #### 2 4356-8 ####[facility] LABIA [id number] [place] [address] [place] Bilirubin Ql (U) Negative Normal Negative [facility] Comment on above: Order Comment: Speci men Type: URINE SPECIMENOrdering Facility: [facility] Address: [address] [place] [address] Performed By: #### 2 4356-8 ####[facility] LABIA [id number] [place] [address] [place] Clarity (Unsp spec) Turbid Abnormal Clear [facility] Comment on above: Order Comment: Speci men Type: URINE SPECIMENOrdering Facility: [facility] Address: [address] [place] [address] Performed By: #### 2 4356-8 ####[facility] LABCLIA [id number] [place] [address] [place] Color (U) Yellow Normal Yellow [facility] Comment on above: Order Comment: Speci men Type: URINE SPECIMENOrdering Facility: [facility] Address: [address] [place] [address] Performed By: #### 2 4356-8 ####[facility] LABCLIA [id number] [place] [address] [place] Epithelial cells LM.HPF (Urine sed) [#/Area] None Seen Normal [facility] Comment on above: Order Comment: Speci men Type: URINE SPECIMENOrdering Facility: [facility] Address: [address] [place] [address] Performed By: #### 2 4356-8 ####[facility] LABCLIA [id number] [place] [address] [place] Glucose Test strip (U) [Mass/Vol] 3+ Abnormal Negative [facility] Comment on above: Order Comment: Speci men Type: URINE SPECIMENOrdering Facility: [facility] Address: [address] [place] [address] Performed By: #### 2 4356-8 ####[facility] LABCLIA [id number] [place] [address] [place] Hemoglobin Ql (U) 1+ Abnormal Negative [facility] Comment on above: Order Comment: Speci men Type: URINE SPECIMENOrdering Facility: [facility] Address: [address] [place] [address] Performed By: #### 2 4356-8 ####[facility] LABCLIA [id number] [place] [address] [place] Hyaline casts (Urine sed) [#/Area] 0 /[LPF] Normal 0 /LPF [facility] Comment on above: Order Comment: Speci men Type: URINE SPECIMENOrdering Facility: [facility] Address: [address] [place] [address] Performed By: #### 2 4356-8 ####[facility] LABCLIA [id number] [place] [address] [place] Ketones Ql (U) Negative Normal Negative [facility] Comment on above: Order Comment: Speci men Type: URINE SPECIMENOrdering Facility: [facility] Address: [address] [place] [address] Performed By: #### 2 4356-8 ####[facility] LABCLIA [id number] [place] [address] [place] Leukocyte esterase Test strip Ql (U) 2+ Abnormal Negative [facility] Comment on above: Order Comment: Speci men Type: URINE SPECIMENOrdering Facility: [facility] Address: [address] [place] [address] Performed By: #### 2 4356-8 ####[facility] LABCLIA [id number] [place] [address] [place] Nitrite Ql (U) Negative Normal Negative [facility] Comment on above: Order Comment: Speci men Type: URINE SPECIMENOrdering Facility: [facility] Address: [address] [place] [address] Performed By: #### 2 4356-8 ####[facility] LABCLIA [id number] [place] [address] [place] pH (U) 8.0 [pH] Normal <8.5 [facility] Comment on above: Order Comment: Speci men Type: URINE SPECIMENOrdering Facility: [facility] Address: [address] [place] [address] Performed By: #### 2 4356-8 ####[facility] LABCLIA [id number] [place] [address] [place] Protein (U) [Mass/Vol] 1+ Abnormal Negative [facility] Comment on above: Order Comment: Speci men Type: URINE SPECIMENOrdering Facility: [facility] Address: [address] [place] [address] Performed By: #### 2 4356-8 ####[facility] [id number] [place] [address] [place] RBC LM.HPF (Urine sed) [#/Area] 6-10 /HPF Abnormal 0-2 /HPF [facility] Comment on above: Order Comment: Speci men Type: URINE SPECIMENOrdering Facility: [facility] Address: [address] [place] [address] Performed By: #### 2 4356-8 ####[facility] [id number] [place] [address] [place] Specific gravity (U) [Rel density] 1.020 Normal 1.005-1.030 [facility] Comment on above: Order Comment: Speci men Type: URINE SPECIMENOrdering Facility: [facility] Address: [address] [place] [address] Performed By: #### 2 4356-8 ####[facility] [id number] [place] [address] [place] Urobilinogen Ql (U) 0.2 EU/dL Normal 0.2-1.0 EU/dL [facility] Comment on above: Order Comment: Speci men Type: URINE SPECIMENOrdering Facility: [facility] Address: [address] [place] [address] Performed By: #### 2 4356-8 ####[facility] [id number] [place] [address] [place] WBC LM.HPF (Urine sed) [#/Area] /[HPF] Abnormal 0-5 /HPF [facility] Comment on above: Order Comment: Speci men Type: URINE SPECIMENOrdering Facility: [facility] Address: [address] [place] [address] Performed By: #### 2 4356-8 ####[facility] LABIA [id number] [facility] [id number] [id number] [place] Urinalysis complete pnl Uron 10-15-2023 Urinalysis complete panel (U) COLOR: Yellow CLARITY: Turbid GLUCOSE, URINE: 3+ BILIRUBIN, URINE: Negative KETONES, URINE: Negative SPECIFIC GRAVITY, UR: 1.020 HEMOGLOBIN/BLOOD, UR: 1+ PH, URINE: 8.0 PROTEIN, URINE: 1+ UROBILINOGEN: 0.2 EU/dL NITRITES: Negative LEUKEST: 2+ WBC, URINE: >20 /HPF RBC, URINE: 6-10 /HPF BACTERIA UL: 1095.3 SQUAMOUS EPITHELIAL CELLS: None Seen HYALINE CASTS: 0 /LPF ORGANISM ID: 1 >=100,000 CFU/ml Escherichia coli ORGANISM ID: 1 (ESCHERICHIA COLI) ANTIBIOTIC INTERPRETATION IBIS STATUS REFERENCE RANGE Ampicillin S 8 F Susceptible <=8 , Intermediate >8 , Resistant >16 Cefazolin S <=4 F Susceptible 0-16 , Intermediate <0 or >16 , Resistant >16 For uncomplicated urinary tract infections, cefazolin results can be used to predict susceptibility or resistance to cephalexin. Ceftriaxone S <=1 F Susceptible <=1 , Intermediate >1 , Resistant >=4 Cefepime S <=1 F Susceptible <=2 , Susceptible-Dose Dependent >2 , Resistant >=16 Ertapenem S <=0.5 F Susceptible <=0.5 , Intermediate >.5 , Resistant >1 Meropenem S <=0.25 F Susceptible <=1 , Intermediate >1 , Resistant >2 Ampicillin/Sulbact S 4 F Susceptible <=8 , Intermediate >8 , Resistant >16 Piperacillin/Tazobac S <=4 F Susceptible <16 , Susceptible-Dose Dependent >=16 , Resistant >=32 Gentamicin S <=1 F Susceptible <=2 , Intermediate >2 , Resistant >=8 Tobramycin S <=1 F Susceptible <4 , Intermediate >=4 , Resistant >=8 Trimeth sulfameth S <=20 F Susceptible <=40 , Resistant >40 Ciprofloxacin S <=0.25 F Susceptible <0.5 , Intermediate >=.5 , Resistant >=1 Nitrofurantoin S <=16 F Susceptible <=32 , Intermediate >32 , Resistant >64 Abnormal [facility] Comment on above: Order Comment: Speci men Type: URINE SPECIMENOrdering Facility: [facility] Address: [address] [place] [address] Performed By: #### 2 4356-8 ####[facility] LABIA [id number] [place] [address] [place] Vit B12 [facility] 024 Cobalamin (Vitamin B12) [Mass/Vol] 1514 pg/mL High 232-1245 [facility] Comment on above: Order Comment: Speci men Type: BLOOD SPECIMENOrdering Facility: [facility] Address: [address] [place] [address] Performed By: #### 2 284-8, 2132-9 ####[facility] LABIA [id number] [place] [address] [place] C diff Tox gens Stl Ql GENEVA+p robeon 10-14-2023 C. difficile toxin genes GENEVA+probe Ql (Stl) Positive Abnormal Negative for C. difficile toxin by PCR [facility] Comment on above: Order Comment: Speci men Type: STOOL SPECIMENOrdering Facility: [facility] Address: [address] [place] [address] Result Comment: A po sitive PCR result may indicate C.difficile infection or colonization. The positive predictive value of this test for C.difficile infection is highest for patients with clinically significant diarrhea (>=3 unformed stools in 24h) who do not have an alternative explanation (e.g., recent receipt of laxatives). Toxin EIA testing will also be performed as recommended by IDSA clinical practice guidelines for institutions without pre-agreed criteria for specimen submission. Performed By: #### 5 4067-4, 37809-6, CDEIA ####[facility] LABCLIA [id number] [place] [id number] [place] C. DIFFICILE TOXIN BY EIAon 10-14-2023 C. difficile toxin A+B IA Ql (Stl) Not detected Normal Negative for C. difficile toxin [facility] Comment on above: Order Comment: Speci men Type: STOOL SPECIMENOrdering Facility: [facility] Address: [address] [place] [address] Result Comment: Toxi n EIA is less sensitive than cell cytotoxin and PCR assays. Clinical correlation of PCR positive/toxin EIA negative results is required to distinguish C. difficle colonization from disease. Performed By: #### 5 4067-4, 44854-1, CDEIA ####[facility] LABCLIA [id number] [place] [id number] [place] CNOVon 10-14-2023 CNOV Office Visit (AGAWILDA CALL) ANALILIA MELENDREZ ([id number]) 1960 M Date Time Provider Department 10/14/23 11:20 AM MARIANNA WAGNER During your visit today, we recorded the following information about you: Temperature Pulse Respiration Blood pressure 97.6 degrees 60/minute 18/minute 122/70 Weight Height 61.2 kg 1.803 m Marianna Wagenr APRN.SPLUNK D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 10/19/2023 1:25 PM Addendum CHIEF COMPLAINT: Analilia Melendrez is a 63 year old male who presents for month f/u (Abdomen is still bothering and his bowel movements). I reviewed past medical, surgical, social, and family histories today and updated chart. Allergies, chronic medications, and supplements were also reviewed. His last appointment was on 08/09/23 and reported diarrhea for at least 4 weeks prior. Stool studies were ordered but he never completed them. He was referred to GI and had an appointment on 09/24/23 but it appears that he cancelled the appointment (he doesn't recall this). He called the nurse triage line to report he was having bloody diarrhea and he was contacted by this office to make an appointment but he did not come in until today. He continues to have diarrhea. He has seen blood as well. He states he has a decreased appetite and is not eating much (crackers, potatoes) which is contributing to his weight loss (has lost about 30 pounds since June). His daughter did get him some Ensure to drink but he does not have anymore. He has had generalized abdominal pain and nausea. He denies any fevers or vomiting. His blood sugars have been up and down. He had a BS of 50 once and felt symptomatic. His BS has been as high as 300. He reports compliance with Farxiga, Metformin, and his daily insulin. Stopped drinking beer a week ago States he was having 1 beer every other day previously He continues to have pain with urination. He was treated for an UTI in August. + for E.coli. OV 08/09/23: Analilia Melendrez is a 63 year old male presenting today as a new patient to establish care. I reviewed past medical, surgical, social, and family histories today and updated chart. Allergies, chronic medications, and supplements were also reviewed. PMH of DM type 2 on insulin, Having chronic diarrhea for the last 2 months. Can go up to 6-8 x a day. The color is orange. No blood that he can see. Having upper abdominal pain. Hx of pancreatitis. He is having upper abdominal pain. He is taking a PPI. Upper GI in the past. Last colonoscopy was about 30 years ago. Has been losing weight since then. Has lost about 25 lbs. Was 165 lbs prior to the residential in June. Has frequent nausea and vomiting. Has a low appetite Unsure of what his last A1C was BS are either really high or low. Has a freestyle mango. Taking Lantus insulin. No meal time insulin. Taking Farxiga and Metformin (has been on that for awhile). Was supposed to follow with a ultrasound sonographer Hx of aortic valve replacement Had a congenital aortic aneurysm Has a pacemaker Has had heart attack He is not following with any specialists right now. States he either had a seizure or stroke and was placed in the hospital and then went to a residential for 5 weeks. 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 Started smoking again, 5-10 cigarettes Has quit in the past, up to a year Drinks alcohol 1 beer every other Used to drink vodka every day, approximately 3 years ago Was in rehab before No marijuana or illicit drugs. 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 Son overdosed and 8 years ago. PAST MEDICAL HISTORY No date: Anxiety No date: Aortic aneurysm ([facility]) Comment: S/P Repair No date: Aortic aneurysm ([facility]) No date: Aortic valve disorder Comment: S/P Replacement No date: CAD (coronary artery disease) Comment: nonobstructive No date: Coronary artery disease No date: Depression No date: Diabetes mellitus, type II ([facility]) Comment: Insulin dependent No date: Hx of ascending aorta repair No date: Hyperlipidemia No date: Hypertension No date: Non-ST elevation [place] (NSTEMI) ([facility]) Comment: 06/24 No date: NSTEMI (non-ST elevated myocardial infarction) ([facility]) No date: Pacemaker No date: Pacemaker No date: Paroxysmal atrial fibrillation ([facility]) No date: RBBB (right bundle branch block) No date: S/P aortic valve replacement Comment: [facility] 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 Normal [facility] G lamblia+Cryptosp Ag Stl Ql IAon 10-14-2023 G. lamblia+Cryptosporidium sp Ag IA Ql (Stl) CRYPTOSPORIDIUM ANTIGEN BY EIA: Negative for Cryptosporidium by EIA. GIARDIA ANTIGEN BY EIA: Negative for Giardia lamblia by EIA. Normal [facility] Comment on above: Performed By: #### 5 4067-4, 47078-3, CDEIA ####[facility] LABCLIA [id number] [place] [address] [place] Hemoccult Stl Ql IAon 2023 Lower GI hemoglobin IA Ql (Stl) Negative Normal Negative [facility] Comment on above: Order Comment: Speci men Type: STOOL SPECIMENOrdering Facility: [facility] Address: [address] [place] [address] Performed By: #### 2 9771-3 ####[facility] LABCLIA [id number] [place] [address] [place] O+P Spec Microon 10-14-2023 Ova and parasites identified LM Nom (Unsp spec) OVA AND PARASITE EXAM: No Parasites Seen Normal [facility] Comment on above: Performed By: #### 6 73-4 ####[facility] LABIA [id number] [place] [address] [place] CNPChanel 10-07-2023 CNPN Telephone (AGSilkStartLE) ANALILIA MELENDREZ ([id number]) 1960 Date Time Provider Department 10/07/23 MARIANNA WAGNER During your visit today, we recorded the following information about you: Marianna Wagner APRN.CNP 10/07/2023 11:31 AM Signed Hgb has decreased showing anemia. I want to recheck her CMP and CBC again in 2 weeks. Has he completed the stool studies yet? Or make an appointment with GI yet? Giulia Rogel MA 10/07/2023 5:14 PM Signed Patient is informed and and reminder placed. He states he needs to drop off the specimen and he will call GI Giulia Rogel MA Allergies As of Date: 10/07/2023 (No Known Allergies) Date Reviewed: 08/09/2023 Reviewed by: Marianna Wagner APRN.SPLUNK D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 - Fully Assessed Reason for Visit: Results [95] Orders [681] Primary Visit Diagnosis:Anemia, unspecified type [D64.9] Other Visit Diagnosis:Chronic diarrhea [K52.9] Order(s):IRON AND TIBC [SQIRON] Order #: [id number] FUTURE FERRITIN [SQFERR] Order #: [id number] FUTURE FOLATE, SERUM [SQSERFOL] Order #: [id number] FUTURE VITAMIN B12 [SQB12] Order #: [id number] FUTURE COMPLETE BLOOD COUNT AND DIFFERENTIAL [SQCBCDIF] Order #: [id number] FUTURE COMPREHENSIVE METABOLIC PANEL [SQCMP] Order #: [id number] FUTURE Prescriptions as of 10/19/2023 - vancomycin (VANCOCIN) 125 mg capsule Take 1 capsule by mouth four times daily for 10 days. - levoFLOXacin (LEVAQUIN) 250 mg tablet Take 1 tablet by mouth once daily for 7 days. - metFORMIN (GLUCOPHAGE) 500 mg tablet Take 1 tablet by mouth daily with breakfast. - Cholecalciferol, Vitamin D3, (VITAMIN D-3) 50 mcg (2,000 unit) cap Take 1 capsule by mouth once daily. - ferrous sulfate 325 mg (65 mg iron) tablet Take 1 tablet by mouth once daily. - Blood-Glucose Meter,Continuous (FREESTYLE MANGO 3 READER) [facility] Use to check blood sugar at least four (4) times daily. - Blood-Glucose Sensor (FREESTYLE MANGO 3 SENSOR) daniel Apply new sensor every fourteen (14) days to upper arm. - FARXIGA 10 mg tablet Take 1 tablet by mouth daily with breakfast. - insulin glargine 100 unit/mL (3 mL) Inject 10 Units subcutaneously once daily. - metoprolol tartrate, short acting, (LOPRESSOR) 50 mg tablet Take 1 tablet by mouth two times a day. - ramipril (ALTACE) 10 mg capsule 10 mg. - pantoprazole DR (PROTONIX) 40 mg tablet Take 1 tablet by mouth two times a day. 30 minutes before eating. - dicyclomine (BENTYL) 10 mg capsule Take 1 capsule by mouth before meals and at bedtime. - atorvastatin (LIPITOR) 40 mg tablet TAKE 1 TABLET BY MOUTH ONCE DAILY. - MULTIVITAMIN ORAL Take 1 tablet by mouth once daily. - Insulin [place], Disposable, (NORBERTO PEN NEEDLE) 32 gauge x 5/32 ndle 1 application three times daily. Problem List As Of Date 10/07/2023 Noted Resolved SUMMARY 03/09/2016 Acute thoracic aortic dissection (HCC) [I71.019]03/09/2016 Primary hypertension [I10] 03/09/2016 History of IVDU (intravenous drug user) [F19.90]03/09/2016 Smoking greater than 10 pack years [F17.210] 03/09/2016 History of depression [Z86.59] 03/09/2016 Type 2 diabetes mellitus with complication, wit*03/09/2016 Alcohol-induced chronic pancreatitis (HCC) [K86*03/09/2016 History of ruptured aneurysm of thoracic aorta *03/09/2016 03/10/2016 Acute headache [R51.9] 03/09/2016 History of alcohol abuse [F10.11] 03/09/2016 History of dissection of thoracic aorta [Z86.79]03/10/2016 Preop testing [Z01.818] 03/16/2016 03/20/2016 Cardiac insufficiency (HCC) [I50.9] 03/19/2016 03/26/2016 Postoperative hypotension [I95.81] 03/19/2016 03/21/2016 Pain, postoperative, acute [G89.18] 03/19/2016 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] 03/20/2016 03/26/2016 Acute respiratory failure with hypoxia (HCC) [J*03/21/2016 03/26/2016 Fluid overload [E87.70] 03/21/2016 03/22/2016 Hypoxemia [R09.02] 03/23/2016 03/26/2016 Discharge planning issues [Z75.8] 03/26/2016 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] Pacemaker [Z95.0] Adrenal nodule (HCC) [E27.9] 08/09/2023 Acute kidney failure, unspecified (HCC) [N17.9] 01/03/2017 Anemia in CKD (chronic kidney disease) [N18.9, *08/09/2023 Aortic aneurysm (HCC) [I71.9] 08/09/2023 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 Chronic pancreatitis (HCC) [K86.1] 08/09/2023 Calcium deficiency [E58] 08/09/2023 Cirrhosis of liver (HCC) [K74.60] 08/09/2023 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 Normal [facility] CBC W Auto Differential pane l (Bld)on 09-25-2023 Basophils (Bld) [#/Vol] 0.08 10*3/uL Normal <0.11 [facility] Comment on above: Order Comment: Speci men Type: BLOOD SPECIMENOrdering Facility: [facility] Address: [address] [place] [address] Performed By: #### 5 7021-8 ####[facility] LABCLIA [id number] [place] [address] [place] Basophils/100 WBC (Bld) 1.7 % Normal [facility] Comment on above: Order Comment: Speci men Type: BLOOD SPECIMENOrdering Facility: [facility] Address: [address] [place] [address] Performed By: #### 5 7021-8 ####[facility] LABCLIA [id number] [place] [address] [place] Differential cell count method Nom (Bld) Auto Normal [facility] Comment on above: Order Comment: Speci men Type: BLOOD SPECIMENOrdering Facility: [facility] Address: [address] [place] [address] Performed By: #### 5 7021-8 ####[facility] LABCLIA [id number] [place] [address] [place] Eosinophils (Bld) [#/Vol] 0.09 10*3/uL Normal <0.46 [facility] Comment on above: Order Comment: Speci men Type: BLOOD SPECIMENOrdering Facility: [facility] Address: [address] [place] [address] Performed By: #### 5 7021-8 ####[facility] LABCLIA [id number] [place] [address] [place] Eosinophils/100 WBC (Bld) 1.9 % Normal [facility] Comment on above: Order Comment: Speci men Type: BLOOD SPECIMENOrdering Facility: [facility] Address: [address] [place] [address] Performed By: #### 5 7021-8 ####[facility] LABCLIA [id number] [place] [address] [place] Erythrocyte distribution width (RBC) [Ratio] 14.3 % Normal 11.5-15.0 [facility] Comment on above: Order Comment: Speci men Type: BLOOD SPECIMENOrdering Facility: [facility] Address: [address] [place] [address] Performed By: #### 5 7021-8 ####[facility] LABCLIA [id number] [place] [address] [place] Hematocrit (Bld) [Volume fraction] 31.0 % Low 39.0-51.0 [facility] Comment on above: Order Comment: Speci men Type: BLOOD SPECIMENOrdering Facility: [facility] Address: [address] [place] [address] Performed By: #### 5 7021-8 ####[facility] LABCLIA [id number] [place] [address] [place] Hemoglobin (Bld) [Mass/Vol] 10.1 g/dL Low 13.0-17.0 [facility] Comment on above: Order Comment: Speci men Type: BLOOD SPECIMENOrdering Facility: [facility] Address: [address] [place] [address] Performed By: #### 5 7021-8 ####[facility] LABIA [id number] [place] [address] [place] Immature granulocytes (Bld) [#/Vol] 10*3/uL Normal <0.10 [facility] Comment on above: Order Comment: Speci men Type: BLOOD SPECIMENOrdering Facility: [facility] Address: [address] [place] [address] Performed By: #### 5 7021-8 ####[facility] LABCLIA [id number] [place] [address] [place] Immature granulocytes/100 WBC (Bld) 0.4 % Normal [facility] Comment on above: Order Comment: Speci men Type: BLOOD SPECIMENOrdering Facility: [facility] Address: [address] [place] [address] Performed By: #### 5 7021-8 ####[facility] LABCLIA [id number] [place] [address] [place] Lymphocytes (Bld) [#/Vol] 1.50 10*3/uL Normal 1.00-4.00 [facility] Comment on above: Order Comment: Speci men Type: BLOOD SPECIMENOrdering Facility: [facility] Address: [address] [place] [address] Performed By: #### 5 7021-8 ####[facility] LABCLIA [id number] [place] [address] [place] Lymphocytes/100 WBC (Bld) 31.4 % Normal [facility] Comment on above: Order Comment: Speci men Type: BLOOD SPECIMENOrdering Facility: [facility] Address: [address] [place] [address] Performed By: #### 5 7021-8 ####[facility] LABIA [id number] [place] [address] [place] MCH (RBC) [Entitic mass] 38.8 pg High 26.0-34.0 [facility] Comment on above: Order Comment: Speci men Type: BLOOD SPECIMENOrdering Facility: [facility] Address: [address] [place] [address] Performed By: #### 5 7021-8 ####[facility] LABIA [id number] [place] [address] [place] MCHC (RBC) [Mass/Vol] 32.6 g/dL Normal 30.5-36.0 [facility] Comment on above: Order Comment: Speci men Type: BLOOD SPECIMENOrdering Facility: [facility] Address: [address] [place] [address] Performed By: #### 5 7021-8 ####[facility] LABIA [id number] [place] [address] [place] MCV (RBC) [Entitic vol] 119.2 fL High 80.0-100.[address] [facility] Comment on above: Order Comment: Speci men Type: BLOOD SPECIMENOrdering Facility: [facility] Address: [address] [place] [address] Performed By: #### 5 7021-8 ####[facility] LABCLIA [id number] [place] [address] [place] Monocytes (Bld) [#/Vol] 0.48 10*3/uL Normal <0.87 [facility] Comment on above: Order Comment: Speci men Type: BLOOD SPECIMENOrdering Facility: [facility] Address: [address] [place] [address] Performed By: #### 5 7021-8 ####[facility] LABCLIA [id number] [place] [address] [place] Monocytes/100 WBC (Bld) 10.1 % Normal [facility] Comment on above: Order Comment: Speci men Type: BLOOD SPECIMENOrdering Facility: [facility] Address: [address] [place] [address] Performed By: #### 5 7021-8 ####[facility] LABCLIA [id number] [place] [address] [place] Neutrophils (Bld) [#/Vol] 2.60 10*3/uL Normal 1.45-7.50 [facility] Comment on above: Order Comment: Speci men Type: BLOOD SPECIMENOrdering Facility: [facility] Address: [address] [place] [address] Performed By: #### 5 7021-8 ####[facility] LABCLIA [id number] [place] [address] [place] Neutrophils/100 WBC (Bld) 54.5 % Normal [facility] Comment on above: Order Comment: Speci men Type: BLOOD SPECIMENOrdering Facility: [facility] Address: [address] [place] [address] Performed By: #### 5 7021-8 ####[facility] LABCLIA [id number] [place] [id number] [place] Nucleated RBC (Bld) [#/Vol] 10*3/uL Normal <0.01 [facility] Comment on above: Order Comment: Speci men Type: BLOOD SPECIMENOrdering Facility: [facility] Address: [address] [place] [address] Performed By: #### 5 7021-8 ####[facility] LABCLIA [id number] [place] [address] [place] Nucleated RBC/100 WBC (Bld) [Ratio] 0.0 /100 WBC Normal [facility] Comment on above: Order Comment: Speci men Type: BLOOD SPECIMENOrdering Facility: [facility] Address: [address] [place] [address] Performed By: #### 5 7021-8 ####[facility] LABCLIA [id number] [place] [address] [place] Ovalocytes LM Ql (Bld) Few Normal [facility] Comment on above: Order Comment: Speci men Type: BLOOD SPECIMENOrdering Facility: [facility] Address: [address] [place] [address] Performed By: #### 5 7021-8 ####[facility] LABCLIA [id number] [place] [address] [place] Platelet mean volume (Bld) [Entitic vol] 12.1 fL Normal 9.0-12.7 [facility] Comment on above: Order Comment: Speci men Type: BLOOD SPECIMENOrdering Facility: [facility] Address: [address] [place] [address] Performed By: #### 5 7021-8 ####[facility] LABCLIA [id number] [place] [address] [place] Platelets (Bld) [#/Vol] 189 10*3/uL Normal 150-400 [facility] Comment on above: Order Comment: Speci men Type: BLOOD SPECIMENOrdering Facility: [facility] Address: [address] [place] [address] Performed By: #### 5 7021-8 ####[facility] LABCLIA [id number] [place] [address] [place] Platelets Estimate (Bld) [#/Vol] Adequate Normal [facility] Comment on above: Order Comment: Speci men Type: BLOOD SPECIMENOrdering Facility: [facility] Address: [address] [place] [address] Performed By: #### 5 7021-8 ####[facility] LABCLIA [id number] [place] [address] [place] Polychromasia LM Ql (Bld) Slight Normal [facility] Comment on above: Order Comment: Speci men Type: BLOOD SPECIMENOrdering Facility: [facility] Address: [address] [place] [address] Performed By: #### 5 7021-8 ####[facility] LABIA [id number] [place] [address] [place] RBC (Bld) [#/Vol] 2.60 10*6/uL Low 4.20-6.00 [facility] Comment on above: Order Comment: Speci men Type: BLOOD SPECIMENOrdering Facility: [facility] Address: [address] [place] [address] Performed By: #### 5 7021-8 ####[facility] LABCLIA [id number] [place] [address] [place] RBC FRAGMENTS Few Abnormal None Seen [facility] Comment on above: Order Comment: Speci men Type: BLOOD SPECIMENOrdering Facility: [facility] Address: [address] [place] [address] Performed By: #### 5 7021-8 ####[facility] LABCLIA [id number] [place] [address] [place] RED CELL MORPH Reviewed: see result s of individual morphologies Normal [facility] Comment on above: Order Comment: Speci men Type: BLOOD SPECIMENOrdering Facility: [facility] Address: [address] [place] [address] Performed By: #### 5 7021-8 ####[facility] LABCLIA [id number] [place] [address] [place] WBC (Bld) [#/Vol] 4.77 10*3/uL Normal 3.70-11.00 [facility] Comment on above: Order Comment: Speci men Type: BLOOD SPECIMENOrdering Facility: [facility] Address: [address] [place] [address] Performed By: #### 5 7021-8 ####[facility] LABCLIA [id number] [place] [address] [place] Comprehensive metabolic 2000 panelon 09-25-2023 Albumin [Mass/Vol] 2.5 g/dL Low 3.9-4.9 [facility] Comment on above: Order Comment: Speci men Type: BLOOD SPECIMENOrdering Facility: [facility] Address: [address] [place] [address] Performed By: #### 2 4323-8 ####[facility] LABCLIA [id number] [place] [address] [place] ALP [Catalytic activity/Vol] 130 U/L High 38-113 [facility] Comment on above: Order Comment: Speci men Type: BLOOD SPECIMENOrdering Facility: [facility] Address: [address] [place] [address] Performed By: #### 2 4323-8 ####[facility] LABCLIA [id number] [place] [address] [place] ALT [Catalytic activity/Vol] 31 U/L Normal 10-54 [facility] Comment on above: Order Comment: Speci men Type: BLOOD SPECIMENOrdering Facility: [facility] Address: [address] [place] [address] Performed By: #### 2 4323-8 ####[facility] LABCLIA [id number] [facility] [place] [address] [place] Anion gap [Moles/Vol] 11 mmol/L Normal 8-15 [facility] Comment on above: Order Comment: Speci men Type: BLOOD SPECIMENOrdering Facility: [facility] Address: [address] [place] [address] Performed By: #### 2 4323-8 ####[facility] LABCLIA [id number] [place] [address] [place] AST [Catalytic activity/Vol] 80 U/L High 14-40 [facility] Comment on above: Order Comment: Speci men Type: BLOOD SPECIMENOrdering Facility: [facility] Address: [address] [place] [address] Performed By: #### 2 4323-8 ####[facility] LABCLIA [id number] [place] [address] [place] Bilirubin [Mass/Vol] 0.3 mg/dL Normal 0.2-1.3 [facility] Comment on above: Order Comment: Speci men Type: BLOOD SPECIMENOrdering Facility: [facility] Address: [address] [place] [address] Performed By: #### 2 4323-8 ####[facility] LABCLIA [id number] [place] [address] [place] Calcium [Mass/Vol] 8.5 mg/dL Normal 8.5-10.2 [facility] Comment on above: Order Comment: Speci men Type: BLOOD SPECIMENOrdering Facility: [facility] Address: [address] [place] [address] Performed By: #### 2 4323-8 ####[facility] LABCLIA [id number] [place] [address] [place] Chloride [Moles/Vol] 111 mmol/L High 98-107 [facility] Comment on above: Order Comment: Speci men Type: BLOOD SPECIMENOrdering Facility: [facility] Address: [address] [place] [address] Performed By: #### 2 4323-8 ####[facility] LABCLIA [id number] [place] [id number] [place] CO2 [Moles/Vol] 17 mmol/L Low 22-30 [facility] Comment on above: Order Comment: Speci men Type: BLOOD SPECIMENOrdering Facility: [facility] Address: [address] [place] [address] Performed By: #### 2 4323-8 ####[facility] LABCLIA [id number] [address] [place] Creatinine [Mass/Vol] 1.06 mg/dL Normal 0.73-1.22 [facility] Comment on above: Order Comment: Speci men Type: BLOOD SPECIMENOrdering Facility: [facility] Address: [address] [place] [address] Performed By: #### 2 4323-8 ####[facility] LABIA [id number] [address] STATES OF [facility] Creatinine and Glomerular filtration rate.predicted panel (S/P/Bld) 80 mL/min/1.73m??? Normal >=60 [facility] Comment on above: Order Comment: Speci men Type: BLOOD SPECIMENOrdering Facility: [facility] Address: [address] [place] [address] Result Comment: Gurwinder mated Glomerular Filtration Rate (eGFR) is calculated using the 2020 CKD-EPI creatinine equation. This equation utilizes serum creatinine, sex, and age as parameters. The creatinine assay has traceable calibration to isotope dilution-mass spectrometry. Refer to KDIGO guidelines for clinical interpretation. In patients with unstable renal function, e.g. those with acute kidney injury, the eGFR may not accurately reflect actual GFR. Performed By: #### 2 4323-8 ####[facility] LABCLIA [id number] [place] [address] [place] Glucose [Mass/Vol] 99 mg/dL Normal 74-99 [facility] Comment on above: Order Comment: Speci men Type: BLOOD SPECIMENOrdering Facility: [facility] Address: [address] [place] [address] Result Comment: The [place] [employer] (ADA) provides guidance for cutoff values for fasting glucose and random glucose. The ADA defines fasting as no caloric intake for at least 8 hours. Fasting plasma glucose results between 100 to 125 [...] Standards of Medical Care in Diabetes 2016, [place] [employer]. Diabetes Care. 2016.39(Suppl 1). Performed By: #### 2 4323-8 ####[facility] LABCLIA [id number] [place] [address] [place] Potassium [Moles/Vol] 4.0 mmol/L Normal 3.7-5.1 [facility] Comment on above: Order Comment: Speci men Type: BLOOD SPECIMENOrdering Facility: [facility] Address: [address] [place] [address] Performed By: #### 2 4323-8 ####[facility] LABCLIA [id number] [place] [address] [place] Protein [Mass/Vol] 6.1 g/dL Low 6.3-8.0 [facility] Comment on above: Order Comment: Speci men Type: BLOOD SPECIMENOrdering Facility: [facility] Address: [address] [place] [address] Performed By: #### 2 4323-8 ####[facility] LABCLIA [id number] [place] [id number] [place] Sodium [Moles/Vol] 139 mmol/L Normal 136-144 [facility] Comment on above: Order Comment: Speci men Type: BLOOD SPECIMENOrdering Facility: [facility] Address: [address] [place] [address] Performed By: #### 2 4323-8 ####[facility] LABCLIA [id number] [address] [place] Urea nitrogen [Mass/Vol] 13 mg/dL Normal 9-24 [facility] Comment on above: Order Comment: Speci men Type: BLOOD SPECIMENOrdering Facility: [facility] Address: [address] [place] [address] Performed By: #### 2 4323-8 ####[facility] LABCLIA [id number] [address] OF [facility] ANLAILIA MELENDREZ ([id number]) 1960 M Date Time Provider Department 09/24/23 MARIANNA WAGNER During your visit today, we recorded the following information about you: Suzi Haynes MA 09/24/2023 9:48 AM Signed Patient called in stating for the last 6 weeks he has had diarrhea really bad and stomach pains. States he has diarrhea every day, all day and it is mostly bile and water coming out. He is soiling the bed and on the floor, cannot always make it to the restroom. States he was in a residential 6 weeks ago because of a seizure and the doctor in the residential had him on Tramadol for his stomach pain but it was not helping and they said they were going to put him on something stronger but then he was sent home without anything. Patient states his quality of life is so bad he does not want to keep going on like this. Clarified with patient that he was not going to harm himself in anyway. Please advise. FLORENTINO Jackson Brittny A, APRN.STEPHANIE 09/24/2023 10:01 AM Signed I would like for him to come get a kit from our office for stool studies and test for C diff. I also placed a referral to GI but I would really like to see him in the office because I can't prescribe anything for pain or imaging without seeing him but if his pain becomes severe he should go to the ER as he may be dehydrated and they can run tests too. I also placed some lab orders. [facility] [address] [place] [address] Appointment: [phone] Desk: [phone] Giulia Rogel MA 09/24/2023 1:56 PM Signed Patient is informed but he gets rides through his insurance so he won't be able to chart picker the kit or get the blood work done for a while. He is going to try and go to [facility] to complete labs and stool study Giulia Rogel MA Allergies As of Date: 09/24/2023 (No Known Allergies) Date Reviewed: 08/09/2023 Reviewed by: Marianna Wagner APRN.SPLUNK D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 - Fully Assessed Reason for Visit: Patient Question [1477] Primary Visit Diagnosis:Diarrhea of presumed infectious origin [R19.7] Other Visit Diagnosis:Generalized abdominal pain [R10.84] Order(s):OVA + PARA MICROSCOPIC [SQOVAP] Order #: [id number]. #:[id number] IMMUNOCHEMICAL FECAL OCCULT BLOOD TEST [SQIFOBT] Order #: [id number]. #:[id number] CRYPTOSPORIDIUM AND GIARDIA ANTIGENS BY EIA [SQOVAPSC] Order #: [id number] FUTURE C. DIFFICILE PCR [SQCDPCR] Order #: [id number] FUTURE CONSULT TO GASTROENTEROLOGY [9010] Order #: [id number]: 1 FUTURE COMPLETE BLOOD COUNT AND DIFFERENTIAL [SQCBCDIF] Order #: [id number] FUTURE COMPREHENSIVE METABOLIC PANEL [SQCMP] Order #: [id number] FUTURE Prescriptions as of 09/24/2023 - Blood-Glucose Meter,Continuous (FREESTYLE MANGO 3 READER) [facility] Use to check blood sugar at least four (4) times daily. - Blood-Glucose Sensor (FREESTYLE MANGO 3 SENSOR) daniel Apply new sensor every fourteen (14) days to upper arm. - Cholecalciferol, Vitamin D3, (VITAMIN D-3) 50 mcg (2,000 unit) cap Take 1 capsule by mouth once daily. - FARXIGA 10 mg tablet Take 1 tablet by mouth daily with breakfast. - insulin glargine 100 unit/mL (3 mL) Inject 10 Units subcutaneously once daily. - metoprolol tartrate, short acting, (LOPRESSOR) 50 mg tablet Take 1 tablet by mouth two times a day. - ramipril (ALTACE) 10 mg capsule 10 mg. - pantoprazole DR (PROTONIX) 40 mg tablet Take 1 tablet by mouth two times a day. 30 minutes before eating. - dicyclomine (BENTYL) 10 mg capsule Take 1 capsule by mouth before meals and at bedtime. - atorvastatin (LIPITOR) 40 mg tablet TAKE 1 TABLET BY MOUTH ONCE DAILY. - metFORMIN (GLUCOPHAGE) 500 mg tablet Take 500 mg by mouth twice daily with meals. - MULTIVITAMIN ORAL Take 1 tablet by mouth once daily. - Insulin Worthington, Disposable, (NORBERTO PEN NEEDLE) 32 gauge x 5/32 ndle 1 application three times daily. Problem List As Of Date 09/24/2023 Noted Resolved SUMMARY 03/09/2016 Acute thoracic aortic dissection (HCC) [I71.019]03/09/2016 Primary hypertension [I10] 03/09/2016 History of IVDU (intravenous drug user) [F19.90]03/09/2016 Smoking greater than 10 pack years [F17.210] 03/09/2016 History of depression [Z86.59] 03/09/2016 Type 2 diabetes mellitus with complication, wit*03/09/2016 Alcohol-induced chronic pancreatitis (HCC) [K86*03/09/2016 History of ruptured aneurysm of thoracic aorta *03/09/2016 03/10/2016 Acute headache [R51.9] 03/09/2016 History of alcohol abuse [F10.11] 03/09/2016 History of dissection of thoracic aorta [Z86.79]03/10/2016 Preop testing [Z01.818] 03/16/2016 03/20/2016 Cardiac insufficiency (HCC) [I50.9] 03/19/2016 03/26/2016 Postoperative hypotension [I95.81] 03/19/2016 03/21/2016 Pain, postoperative, acute [G89.18] 03/19/2016 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 Normal [facility] CNPChanel 09-13-2023 [facility] Telephone (AGFAMPLE) ANALILIA MELENDREZ ([id number]) 1960 M Date Time Provider Department 09/13/23 MARIANNA WAGNER During your visit today, we recorded the following information about you: Marianna Wagner APRN.CNP 09/13/2023 8:59 AM Addendum Please call patient to check on him since he did not go to an ER that I can see. He had called nurse rhys stating he was having blood diarrhea. Yessica Umana LPN 09/13/2023 11:20 AM Signed Left message for pt to call office. KEITH Miller Janie, MA 09/14/2023 9:34 AM Signed Spoke with patient and he states he is fine, he was mistaken he had pulled a scab off his knee and it was bleeding everywhere, he was not actually having blood in his stool. Suzi Haynes MA Allergies As of Date: 09/13/2023 (No Known Allergies) Date Reviewed: 08/09/2023 Reviewed by: Marianna Wagner APRN.CNP - Fully Assessed Reason for Visit: Patient Update [1234] Prescriptions as of 09/14/2023 - Blood-Glucose Meter,Continuous (FREESTYLE MANGO 3 READER) [facility] Use to check blood sugar at least four (4) times daily. - Blood-Glucose Sensor (FREESTYLE MANGO 3 SENSOR) daniel Apply new sensor every fourteen (14) days to upper arm. - Cholecalciferol, Vitamin D3, (VITAMIN D-3) 50 mcg (2,000 unit) cap Take 1 capsule by mouth once daily. - FARXIGA 10 mg tablet Take 1 tablet by mouth daily with breakfast. - insulin glargine 100 unit/mL (3 mL) Inject 10 Units subcutaneously once daily. - metoprolol tartrate, short acting, (LOPRESSOR) 50 mg tablet Take 1 tablet by mouth two times a day. - ramipril (ALTACE) 10 mg capsule 10 mg. - pantoprazole DR (PROTONIX) 40 mg tablet Take 1 tablet by mouth two times a day. 30 minutes before eating. - dicyclomine (BENTYL) 10 mg capsule Take 1 capsule by mouth before meals and at bedtime. - atorvastatin (LIPITOR) 40 mg tablet TAKE 1 TABLET BY MOUTH ONCE DAILY. - metFORMIN (GLUCOPHAGE) 500 mg tablet Take 500 mg by mouth twice daily with meals. - MULTIVITAMIN ORAL Take 1 tablet by mouth once daily. - Insulin Worthing[place], Disposable, (NORBERTO PEN NEEDLE) 32 gauge x 5/32 ndle 1 application three times daily. Problem List As Of Date 09/13/2023 Noted Resolved SUMMARY 03/09/2016 Acute thoracic aortic dissection (HCC) [I71.019]03/09/2016 Primary hypertension [I10] 03/09/2016 History of IVDU (intravenous drug user) [F19.90]03/09/2016 Smoking greater than 10 pack years [F17.210] 03/09/2016 History of depression [Z86.59] 03/09/2016 Type 2 diabetes mellitus with complication, wit*03/09/2016 Alcohol-induced chronic pancreatitis (HCC) [K86*03/09/2016 History of ruptured aneurysm of thoracic aorta *03/09/2016 03/10/2016 Acute headache [R51.9] 03/09/2016 History of alcohol abuse [F10.11] 03/09/2016 History of dissection of thoracic aorta [Z86.79]03/10/2016 Preop testing [Z01.818] 03/16/2016 03/20/2016 Cardiac insufficiency (HCC) [I50.9] 03/19/2016 03/26/2016 Postoperative hypotension [I95.81] 03/19/2016 03/21/2016 Pain, postoperative, acute [G89.18] 03/19/2016 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] 03/20/2016 03/26/2016 Acute respiratory failure with hypoxia (HCC) [J*03/21/2016 03/26/2016 Fluid overload [E87.70] 03/21/2016 03/22/2016 Hypoxemia [R09.02] 03/23/2016 03/26/2016 Discharge planning issues [Z75.8] 03/26/2016 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] Pacemaker [Z95.0] Adrenal nodule (HCC) [E27.9] 08/09/2023 Acute kidney failure, unspecified (HCC) [N17.9] 01/03/2017 Anemia in CKD (chronic kidney disease) [N18.9, *08/09/2023 Aortic aneurysm (HCC) [I71.9] 08/09/2023 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 Chronic pancreatitis (HCC) [K86.1] 08/09/2023 Calcium deficiency [E58] 08/09/2023 Cirrhosis of liver (HCC) [K74.60] 08/09/2023 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*08/09/2023 Cognitive communication deficit [R41.841] 05/21/2023 Depression [F32.A] 08/09/2023 Elevated liver enzymes [R74.8] 08/09/2023 GERD (gastroesophageal reflux disease) [K21.9] 08/09/2023 Hiatal hernia [K44.9] 08/09/2023 History of aortic valve replacement [Z95.2] 08/09/2023 Hepatic steatosis [K76.0] 08/09/2023 History of kidney stones [Z87.442] 08/09/2023 History of pacemaker [Z95.0] 08/09/2023 History of TIA (transient ischemic attack) [Z86*08/09/2023 Hyperlipidemia LDL goal <100 [E78.5] 08/09/2023 Hyperosmolar non-ketotic state in patient with *08/09/2023 Insomnia, unspecified [G47.00] 05/22/2023 Left ventricular hypertrophy [I51.7] 08/09/2023 Nicotine dependence, unspecified, uncomplicated* 7 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] 05/20/2023 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]01/03/2017 Pansystolic murmur [R01.1] 08/09/2023 Unspecified severe protein-calorie malnutrition*05/20/2023 Encounter Status:Closed by YESSICA UMANA on 09/13/23 [facility] 08-20-2023 [facility] Telephone (AGFAMPLE) ANALILIA MELENDREZ ([id number]) 1960 M Date Time Provider Department 08/20/23 MARIANNA WAGNER During your visit today, we recorded the following information about you: Giulia Rogel MA 08/20/2023 10:45 AM Signed Patient called he would like an order for freestyle mango FLORENTINO Cerrato Julie, MA 08/23/2023 11:44 AM Signed Patient called again requesting a refill FLORENTINO Cerrato Brittny A, APRN.SPLUNK D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 08/29/2023 2:43 PM Signed Order for Freestyle Mango sent into pharmacy. Marianna Wagner APRN.SPLUNK D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 08/29/2023 2:43 PM Signed Addended by: MARIANNA WAGNER on: 08/29/2023 02:43 PM Modules accepted: Andrew Lipscomb MA 08/30/2023 2:11 PM Signed Patient aware. Andrew Ponce MA Allergies As of Date: 08/20/2023 (No Known Allergies) Date Reviewed: 08/09/2023 Reviewed by: Marianna Wagner APRN.SPLUNK D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 - Fully Assessed Reason for Visit: Patient Question [0147] Primary Visit Diagnosis:Type 2 diabetes mellitus with complication, with long-term current use of insulin (HCC) [E11.8, Z79.4] Order(s):Blood-Glucose Meter,Continuous (FREESTYLE MANGO 3 READER) miscUse to check blood sugar at least four (4) times daily.Disp: 1 EachRfl: 0 Blood-Glucose Sensor (FREESTYLE MANGO 3 SENSOR) deviApply new sensor every fourteen (14) days to upper arm.Disp: 6 EachRfl: 4 Prescriptions as of 08/30/2023 - Blood-Glucose Meter,Continuous (FREESTYLE MANGO 3 READER) misc Use to check blood sugar at least four (4) times daily. - Blood-Glucose Sensor (FREESTYLE MANGO 3 SENSOR) daniel Apply new sensor every fourteen (14) days to upper arm. - Cholecalciferol, Vitamin D3, (VITAMIN D-3) 50 mcg (2,000 unit) cap Take 1 capsule by mouth once daily. - FARXIGA 10 mg tablet Take 1 tablet by mouth daily with breakfast. - insulin glargine 100 unit/mL (3 mL) Inject 10 Units subcutaneously once daily. - metoprolol tartrate, short acting, (LOPRESSOR) 50 mg tablet Take 1 tablet by mouth two times a day. - ramipril (ALTACE) 10 mg capsule 10 mg. - pantoprazole DR (PROTONIX) 40 mg tablet Take 1 tablet by mouth two times a day. 30 minutes before eating. - dicyclomine (BENTYL) 10 mg capsule Take 1 capsule by mouth before meals and at bedtime. - atorvastatin (LIPITOR) 40 mg tablet TAKE 1 TABLET BY MOUTH ONCE DAILY. - metFORMIN (GLUCOPHAGE) 500 mg tablet Take 500 mg by mouth twice daily with meals. - MULTIVITAMIN ORAL Take 1 tablet by mouth once daily. - Insulin Worthington, Disposable, (NORBERTO PEN NEEDLE) 32 gauge x 5/32 ndle 1 application three times daily. Problem List As Of Date 08/20/2023 Noted Resolved SUMMARY 03/09/2016 Acute thoracic aortic dissection (HCC) [I71.019]03/09/2016 Primary hypertension [I10] 03/09/2016 History of IVDU (intravenous drug user) [F19.90]03/09/2016 Smoking greater than 10 pack years [F17.210] 03/09/2016 History of depression [Z86.59] 03/09/2016 Type 2 diabetes mellitus with complication, wit*03/09/2016 Alcohol-induced chronic pancreatitis (HCC) [K86*03/09/2016 History of ruptured aneurysm of thoracic aorta *03/09/2016 03/10/2016 Acute headache [R51.9] 03/09/2016 History of alcohol abuse [F10.11] 03/09/2016 History of dissection of thoracic aorta [Z86.79]03/10/2016 Preop testing [Z01.818] 03/16/2016 03/20/2016 Cardiac insufficiency (HCC) [I50.9] 03/19/2016 03/26/2016 Postoperative hypotension [I95.81] 03/19/2016 03/21/2016 Pain, postoperative, acute [G89.18] 03/19/2016 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] 03/20/2016 03/26/2016 Acute respiratory failure with hypoxia (HCC) [J*03/21/2016 03/26/2016 Fluid overload [E87.70] 03/21/2016 03/22/2016 Hypoxemia [R09.02] 03/23/2016 03/26/2016 Discharge planning issues [Z75.8] 03/26/2016 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] Pacemaker [Z95.0] Adrenal nodule (HCC) [E27.8] 08/09/2023 Acute kidney failure, unspecified (HCC) [N17.9] 01/03/2017 Anemia in CKD (chronic kidney disease) [N18.9, *08/09/2023 Aortic aneurysm (HCC) [I71.9] 08/09/2023 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 Chronic pancreatitis (HCC) [K86.1] 08/09/2023 Calcium deficiency [E58] 08/09/2023 Cirrhosis of liver (HCC) [K74.60] 08/09/2023 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*08/09/2023 Cognitive communication deficit [R41.841] 05/21/2023 Depression [F32.A] 08/09/2023 Elevated liver enzymes [R74.8] 08/09/2023 GERD (gastroesophageal reflux disease) [K21.9] 08/09/2023 Hiatal hernia [K44.9] 08/09/2023 History of aortic valve replacement [Z95.2] 08/09/2023 Hepatic steatosis [K76.0] 08/09/2023 History of kidney stones [Z87.442] 08/09/2023 History of pacemaker [Z95.0] 08/09/2023 History of TIA (transient ischemic attack) [Z86*08/09/2023 Hyperlipidemia LDL goal <100 [E78.5] 08/09/2023 Hyperosmolar non-ketotic state in patient with *08/09/2023 Insomnia, unspecified [G47.00] 05/22/2023 Left ve (more content not included)... Normal [facility] CNPNon 08-16-2023 CNPN Telephone (AGFAMPLE) ANALILIA MELENDREZ ([id number]) 1960 M Date Time Provider Department 08/16/23 MARIANNA WAGNER During your visit today, we recorded the following information about you: Andrew Ponce MA 08/16/2023 2:21 PM Signed ----- Message from Marianna Wagner APRN.SPLUNK D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 sent at 08/16/2023 2:14 PM EDT ----- A1C has improved to 6.8 which is considered controlled. Continue current medications. Recheck in 6 months. Andrew Ponce MA 08/16/2023 2:21 PM Signed Pt. Notified. Reminder placed. Andrew Ponce MA Allergies As of Date: 08/16/2023 (No Known Allergies) Date Reviewed: 08/09/2023 Reviewed by: Marianna Wagner APRN.SPLUNK D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 - Fully Assessed Reason for Visit: Results [95] Prescriptions as of 08/16/2023 - cephALEXin (KEFLEX) 500 mg capsule Take 1 capsule by mouth two times a day for 7 days. - Cholecalciferol, Vitamin D3, (VITAMIN D-3) 50 mcg (2,000 unit) cap Take 1 capsule by mouth once daily. - FARXIGA 10 mg tablet Take 1 tablet by mouth daily with breakfast. - insulin glargine 100 unit/mL (3 mL) Inject 10 Units subcutaneously once daily. - metoprolol tartrate, short acting, (LOPRESSOR) 50 mg tablet Take 1 tablet by mouth two times a day. - ramipril (ALTACE) 10 mg capsule 10 mg. - pantoprazole DR (PROTONIX) 40 mg tablet Take 1 tablet by mouth two times a day. 30 minutes before eating. - dicyclomine (BENTYL) 10 mg capsule Take 1 capsule by mouth before meals and at bedtime. - atorvastatin (LIPITOR) 40 mg tablet TAKE 1 TABLET BY MOUTH ONCE DAILY. - metFORMIN (GLUCOPHAGE) 500 mg tablet Take 500 mg by mouth twice daily with meals. - MULTIVITAMIN ORAL Take 1 tablet by mouth once daily. - Insulin Worthing[place], Disposable, (NORBERTO PEN NEEDLE) 32 gauge x 5/32 ndle 1 application three times daily. Problem List As Of Date 08/16/2023 Noted Resolved SUMMARY 03/09/2016 Acute thoracic aortic dissection (HCC) [I71.019]03/09/2016 Primary hypertension [I10] 03/09/2016 History of IVDU (intravenous drug user) [F19.90]03/09/2016 Smoking greater than 10 pack years [F17.210] 03/09/2016 History of depression [Z86.59] 03/09/2016 Type 2 diabetes mellitus with complication, wit*03/09/2016 Alcohol-induced chronic pancreatitis (HCC) [K86*03/09/2016 History of ruptured aneurysm of thoracic aorta *03/09/2016 03/10/2016 Acute headache [R51.9] 03/09/2016 History of alcohol abuse [F10.11] 03/09/2016 History of dissection of thoracic aorta [Z86.79]03/10/2016 Preop testing [Z01.818] 03/16/2016 03/20/2016 Cardiac insufficiency (HCC) [I50.9] 03/19/2016 03/26/2016 Postoperative hypotension [I95.81] 03/19/2016 03/21/2016 Pain, postoperative, acute [G89.18] 03/19/2016 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] 03/20/2016 03/26/2016 Acute respiratory failure with hypoxia (HCC) [J*03/21/2016 03/26/2016 Fluid overload [E87.70] 03/21/2016 03/22/2016 Hypoxemia [R09.02] 03/23/2016 03/26/2016 Discharge planning issues [Z75.8] 03/26/2016 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] Pacemaker [Z95.0] Adrenal nodule (HCC) [E27.8] 08/09/2023 Acute kidney failure, unspecified (HCC) [N17.9] 01/03/2017 Anemia in CKD (chronic kidney disease) [N18.9, *08/09/2023 Aortic aneurysm (HCC) [I71.9] 08/09/2023 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 Chronic pancreatitis (HCC) [K86.1] 08/09/2023 Calcium deficiency [E58] 08/09/2023 Cirrhosis of liver (HCC) [K74.60] 08/09/2023 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*08/09/2023 Cognitive communication deficit [R41.841] 05/21/2023 Depression [F32.A] 08/09/2023 Elevated liver enzymes [R74.8] 08/09/2023 GERD (gastroesophageal reflux disease) [K21.9] 08/09/2023 Hiatal hernia [K44.9] 08/09/2023 History of aortic valve replacement [Z95.2] 08/09/2023 Hepatic steatosis [K76.0] 08/09/2023 History of kidney stones [Z87.442] 08/09/2023 History of pacemaker [Z95.0] 08/09/2023 History of TIA (transient ischemic attack) [Z86*08/09/2023 Hyperlipidemia LDL goal <100 [E78.5] 08/09/2023 Hyperosmolar non-ketotic state in patient with *08/09/2023 Insomnia, unspecified [G47.00] 05/22/2023 Left ventricular hypertrophy [I51.7] 08/09/2023 Nicotine dependence, unspecified, uncomplicated* 7 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 Bacteria identified Cx Nom ( U)Ordered By: Franco Robbins on 08-12-2023 Interpretation and review of laboratory results Abnormal [facility] URINE CULTUREOrdered By: Col brielle Robbins on 08-12-2023 Bacteria identified Cx Nom (U) >=100,000 CFU/ml Escherichia coli Abnormal [facility] CNPNon 08-11-2023 CNPN Telephone (AGFAMPLE) ANALILIA MELENDREZ ([id number]) 1960 M Date Time Provider Department 08/11/23 MARIANNA WAGNER During your visit today, we recorded the following information about you: Marianna Wagner APRN.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 08/11/2023 6:19 PM Signed Please notify that patient that his urine was positive for an infection and the culture grew a bacteria called E.coli. I will start him on an antibiotic called Keflex that he will need to take twice a day for 7 days and complete the full course. CBC shows anemia- needs to check a fecal occult. Order placed. PSA was normal HIV negative TSH was normal B12 was high- needs to hold anything that has B12 in it Vitamin D was low- start 2,000 international unit(s) daily. Rx sent in. Liver enzymes are elevated Kidney function is elevated. Please make sure he is only taking Ramipril alone and not with Lisinopril. Will forward this to urgent care technician since he is a complicated case. Suzi Haynes MA 08/13/2023 9:28 AM Signed Patient informed of results, recommendations and scripts sent in. Patient states he [facility] not use [facility] he uses [facility] in [place] and would like scripts resent. Also patient states he does not take any supplements with vitamin B12. Please advise. Suzi Haynes MA Allergies As of Date: 08/11/2023 (No Known Allergies) Date Reviewed: 08/09/2023 Reviewed by: Marianna Wagner APRN.[employer] D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 - Fully Assessed Reason for Visit: Results [95] Primary Visit Diagnosis:Anemia, unspecified type [D64.9] Order(s):IMMUNOCHEMICAL FECAL OCCULT BLOOD TEST [SQIFOBT] Order #: [id number]. #:[id number] cephALEXin (KEFLEX) 500 mg capsuleTake 1 capsule by mouth two times a day for 7 days.Disp: 14 capsuleRfl: 0 Cholecalciferol, Vitamin D3, (VITAMIN D-3) 50 mcg (2,000 unit) capTake 1 capsule by mouth once daily.Disp: 90 capsuleRfl: 1 Prescriptions as of 08/13/2023 - cephALEXin (KEFLEX) 500 mg capsule Take 1 capsule by mouth two times a day for 7 days. - Cholecalciferol, Vitamin D3, (VITAMIN D-3) 50 mcg (2,000 unit) cap Take 1 capsule by mouth once daily. - FARXIGA 10 mg tablet Take 1 tablet by mouth daily with breakfast. - insulin glargine 100 unit/mL (3 mL) Inject 10 Units subcutaneously once daily. - metoprolol tartrate, short acting, (LOPRESSOR) 50 mg tablet Take 1 tablet by mouth two times a day. - ramipril (ALTACE) 10 mg capsule 10 mg. - pantoprazole DR (PROTONIX) 40 mg tablet Take 1 tablet by mouth two times a day. 30 minutes before eating. - dicyclomine (BENTYL) 10 mg capsule Take 1 capsule by mouth before meals and at bedtime. - atorvastatin (LIPITOR) 40 mg tablet TAKE 1 TABLET BY MOUTH ONCE DAILY. - metFORMIN (GLUCOPHAGE) 500 mg tablet Take 500 mg by mouth twice daily with meals. - MULTIVITAMIN ORAL Take 1 tablet by mouth once daily. - Insulin [place], Disposable, (NORBERTO PEN NEEDLE) 32 gauge x 5/32 ndle 1 application three times daily. 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*03/09/2016 History of ruptured aneurysm of thoracic aorta *03/09/2016 03/10/2016 Acute headache [R51.9] 03/09/2016 History of alcohol abuse [F10.11] 03/09/2016 History of dissection of thoracic aorta [Z86.79]03/10/2016 Preop testing [Z01.818] 03/16/2016 03/20/2016 Cardiac insufficiency (HCC) [I50.9] 03/19/2016 03/26/2016 Postoperative hypotension [I95.81] 03/19/2016 03/21/2016 Pain, postoperative, acute [G89.18] 03/19/2016 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] 03/20/2016 03/26/2016 Acute respiratory failure with hypoxia (HCC) [J*03/21/2016 03/26/2016 Fluid overload [E87.70] 03/21/2016 03/22/2016 Hypoxemia [R09.02] 03/23/2016 03/26/2016 Discharge planning issues [Z75.8] 03/26/2016 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] Pacemaker [Z95.0] Adrenal nodule (HCC) [E27.8] 08/09/2023 Acute kidney failure, unspecified (HCC) [N17.9] 01/03/2017 Anemia in CKD (chronic kidney disease) [N18.9, *08/09/2023 Aortic aneurysm (HCC) [I71.9] 08/09/2023 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 Chronic pancreatitis (HCC) [K86.1] 08/09/2023 Calcium deficiency [E58] 08/09/2023 Cirrhosis of liver (HCC) [K74.60] 08/09/2023 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 Normal [facility] 25-hydroxyvitamin D3 [Mass/V ol]on 08-10-2023 Interpretation and review of laboratory results Abnormal [facility] Cobalamin (Vitamin B12) [Mas s/Vol]on 08-10-2023 Interpretation and review of laboratory results Abnormal [facility] FERRITINon 08-10-2023 Ferritin [Mass/Vol] 561.0 ng/mL 30.3 - 5 65.7 ng/mL [facility] FOLATE, SERUMon 08-10-2023 Folate [Mass/Vol] 19.5 ng/mL 4.7 - PINF ng/mL [facility] Folate [Mass/Vol]on 08-10-19 Interpretation and review of laboratory results Normal [facility] HIV 1+2 Ab IA Qlon HIV 1 and 2 Ab IA.rapid Nom (S/P/Bld) [facility] Comment on above: Test not indicated. HIV 1+2 Ab+HIV1 p24 Ag IA Ql Non-Reactive Nonreactive [facility] Comment on above: [place] Rev. Code 3701. 243(E): This information has been disclosed to you from confidential records protected from disclosure by state law. You shall make no further disclosure of this information without the specific, written, and informed release of the individual to whom it pertains or as otherwise permitted by state law. A general authorization for the release of medical or other information is not sufficient for the purpose of the release of HIV test results or diagnoses. Test methodology for this assay has moved from Siemens Centaur XP to [employer] perri 8000 effective November 11, 2021. Please note there may be a change in the reporting units and/or reference range. HIV immunoassay testing algorithm interpretation (S/P/Bld) [Interp] [facility] Comment on above: No evidence of HIV-1 or HIV-2 infection. Should recent infection be suspected, repeat testing may be considered 2-3 weeks after this draw. Iron and Iron binding capaci ty panelon 08-10-2023 Interpretation and review of laboratory results Abnormal [facility] Iron [Mass/Vol] 108 ug/dL 41 - 186 ug/dL [facility] Iron binding capacity [Mass/Vol] ug/dL Low 232 - 386 ug/dL [facility] Iron saturation [Mass fraction] % High 15.0 - 57.0 % [facility] No Panel Informationon 08-09 [facility] Interpretation and review of laboratory results Normal [facility] PSA/PROSTATE SPECIFIC ANTIGE N SCREENINGon 08-10-2023 Prostate specific Ag [Mass/Vol] 0.78 ng/mL NINF - 2.60 ng/mL [facility] Comment on above: Total PSA test metho dology used is the Electrochemiluminescence Immunoassay by [employer]. Total PSA values by differing methodologies cannot be interchanged. VITAMIN B12on 08-10-2023 Cobalamin (Vitamin B12) [Mass/Vol] 1523 pg/mL High 232 - 1245 pg/mL [facility] VITAMIN D 25 HYDROXYon 08-09 25-hydroxyvitamin D3 [Mass/Vol] 24.0 ng/mL Low 30.0 - PINF ng/mL [facility] Comment on above: Classification of 25 [place] Vitamin D status: Deficiency: <= 20.0 ng/ml. Insufficiency: 21.0-29.0 ng/ml. Sufficiency: >= 30.0 ng/ml. 25(OH)D3 SerPl-mCncon 2023 25-hydroxyvitamin D3 [Mass/Vol] 24.0 ng/mL Low >=30.0 [facility] Comment on above: Order Comment: Speci men Type: BLOOD SPECIMENOrdering Facility: [facility] Address: [address] [place], [place] [address] [address] Result Comment: Clas sification of 25 [place] Vitamin D status: Deficiency: <= 20.0 ng/ml. Insufficiency: 21.0-29.0 ng/ml. Sufficiency: >= 30.0 ng/ml. Performed By: #### 1 989-3 ####[facility] LABORATORYIA [id number] [place] [address] [place] Bacteria Ur Culton 4 Bacteria identified Cx Nom (U) ORGANISM ID: 1 >=100,000 CFU/ml Escherichia coli ORGANISM ID: 1 (ESCHERICHIA COLI) ANTIBIOTIC INTERPRETATION IBIS STATUS REFERENCE RANGE Ampicillin S <=4 F Susceptible <=8 , Intermediate >8 , Resistant >16 Cefazolin S <=1 F Susceptible 0-16 , Intermediate <0 or >16 , Resistant >16 For uncomplicated urinary tract infections, cefazolin results can be used to predict susceptibility or resistance to cephalexin. Ceftriaxone S <=1 F Susceptible <=1 , Intermediate >1 , Resistant >=4 Cefepime S <=1 F Susceptible <=2 , Susceptible-Dose Dependent >2 , Resistant >=16 Ertapenem S <=0.25 F Susceptible <=0.5 , Intermediate >.5 , Resistant >1 Meropenem S <=0.5 F Susceptible <=1 , Intermediate >1 , Resistant >2 Aztreonam S <=2 F Susceptible <=4 , Intermediate >4 , Resistant >=16 Ampicillin/Sulbact S 4 F Piperacillin/Tazobac S <=2 F Gentamicin S <=2 F Susceptible <=4 , Intermediate >4 , Resistant >8 Trimeth sulfameth S <=0.5 F Ciprofloxacin S <=0.25 F Susceptible <0.5 , Intermediate >=.5 , Resistant >=1 Nitrofurantoin S <=16 F Susceptible <=32 , Intermediate >32 , Resistant >64 Abnormal [facility] Comment on above: Performed By: #### 6 30-4 ####[facility] LABORATORYCLIA [id number] [place] [address] [place] CBC W Auto Differential pane l (Bld)on 08-09-2023 Basophils (Bld) [#/Vol] 0.03 10*3/uL [facility] Basophils/100 WBC (Bld) 0.5 % [facility] Differential cell count method Nom (Bld) Auto [facility] Eosinophils (Bld) [#/Vol] 0.04 10*3/uL [facility] Eosinophils/100 WBC (Bld) 0.6 % [facility] Erythrocyte distribution width (RBC) [Ratio] 15.9 % High 11.5 - 15.0 % [facility] Hematocrit (Bld) [Volume fraction] 35.0 % Low 39.0 - 51.0 % [facility] Hemoglobin (Bld) [Mass/Vol] 11.4 g/dL Low 13.0 - 17.0 g/dL [facility] Immature granulocytes (Bld) [#/Vol] [facility] Immature granulocytes/100 WBC (Bld) 0.2 % [facility] Interpretation and review of laboratory results Abnormal [facility] Lymphocytes (Bld) [#/Vol] 1.31 10*3/uL [facility] Lymphocytes/100 WBC (Bld) 21.0 % [facility] MCH (RBC) [Entitic mass] 35.4 pg High 26.0 - 34.0 pg [facility] MCHC (RBC) [Mass/Vol] 32.6 g/dL 30.5 - 36.0 g/dL [facility] MCV (RBC) [Entitic vol] 108.7 fL High 80.0 - 100.0 fL [facility] Monocytes (Bld) [#/Vol] 0.57 10*3/uL [facility] Monocytes/100 WBC (Bld) 9.1 % [facility] Neutrophils (Bld) [#/Vol] 4.29 10*3/uL [facility] Neutrophils/100 WBC (Bld) 68.6 % [facility] Nucleated RBC (Bld) [#/Vol] [facility] Nucleated RBC/100 WBC (Bld) [Ratio] [facility] Platelet mean volume (Bld) [Entitic vol] 10.4 fL 9.0 - 12.7 fL [facility] Platelets (Bld) [#/Vol] 195 10*3/uL [facility] RBC (Bld) [#/Vol] 3.22 10*6/uL Low 4.20 - 6.0 0 m/uL [facility] WBC (Bld) [#/Vol] 6.25 10*3/uL [facility] Basophils (Bld) [#/Vol] 0.03 10*3/uL Normal <0.11 [facility] Comment on above: Order Comment: Speci men Type: BLOOD SPECIMENOrdering Facility: [facility] Address: [address] [place] [address] Performed By: #### 5 7021-8 ####[facility] LABCLIA [id number] [address]#### [address]-6 ####[facility] LABCLIA [id number] [address] STATES OF [facility] Basophils/100 WBC (Bld) 0.5 % Normal [facility] Comment on above: Order Comment: Speci men Type: BLOOD SPECIMENOrdering Facility: [facility] Address: [address] [place] [address] Performed By: #### 5 7021-8 ####[facility] LABCLIA [id number] [address] [place]#### [address]-3 ####[facility] LABCLIA [id number] [address] [place] Differential cell count method Nom (Bld) Auto Normal [facility] Comment on above: Order Comment: Speci men Type: BLOOD SPECIMENOrdering Facility: [facility] Address: [address] [place] [address] Performed By: #### 5 7021-8 ####[facility] LABCLIA [id number] [place] [address] [place]#### 24015-2 ####[facility] LABCLIA [id number] [place] [address] [place] Eosinophils (Bld) [#/Vol] 0.04 10*3/uL Normal <0.46 [facility] Comment on above: Order Comment: Speci men Type: BLOOD SPECIMENOrdering Facility: [facility] Address: [address] [place] [address] Performed By: #### 5 7021-8 ####[facility] LABCLIA [id number] [place] [address] [place]#### 46235-4 ####[facility] LABCLIA [id number] [address] [place] Eosinophils/100 WBC (Bld) 0.6 % Normal [facility] Comment on above: Order Comment: Speci men Type: BLOOD SPECIMENOrdering Facility: [facility] Address: [address] [place] [address] Performed By: #### 5 7021-8 ####[facility] LABCLIA [id number] [address] OF [place]#### 91077-8 ####[facility] LABCLIA [id number] [place] [address] [place] Erythrocyte distribution width (RBC) [Ratio] 15.9 % High 11.5-15.0 [facility] Comment on above: Order Comment: Speci men Type: BLOOD SPECIMENOrdering Facility: [facility] Address: [address] [place] [address] Performed By: #### 5 7021-8 ####[facility] LABCLIA [id number] [address]#### [address]-6 ####[facility] LABCLIA [id number] [place] [address] [place] Hematocrit (Bld) [Volume fraction] 35.0 % Low 39.0-51.0 [facility] Comment on above: Order Comment: Speci men Type: BLOOD SPECIMENOrdering Facility: [facility] Address: [address] [place] [address] Performed By: #### 5 7021-8 ####[facility] LAB[facility] [id number] [place] [address] [place]#### 06930-0 ####[facility] LABCLIA [id number] [place] [address] [place] Hemoglobin (Bld) [Mass/Vol] 11.4 g/dL Low 13.0-17.0 [facility] Comment on above: Order Comment: Speci men Type: BLOOD SPECIMENOrdering Facility: [facility] Address: [address] [place] [address] Performed By: #### 5 7021-8 ####[facility] LAB[facility]IA [id number] [address] STATES [facility]#### 82647-1 ####[facility] LABCLIA [id number] [place] [address] [place] Immature granulocytes (Bld) [#/Vol] 10*3/uL Normal <0.10 [facility] Comment on above: Order Comment: Speci men Type: BLOOD SPECIMENOrdering Facility: [facility] Address: [facility] [place] [address] Performed By: #### 5 7021-8 ####[facility] LABCLIA [id number] [place] [address] [place]#### 79025-6 ####[facility] LABCLIA [id number] [place] [address] [place] Immature granulocytes/100 WBC (Bld) 0.2 % Normal [facility] Comment on above: Order Comment: Speci men Type: BLOOD SPECIMENOrdering Facility: [facility] Address: [address] [place] [address] Performed By: #### 5 7021-8 ####[facility] LABCLIA [id number] [place] [address] [place]#### 29516-4 ####[facility] LABCLIA [id number] [place] [address] [place] Lymphocytes (Bld) [#/Vol] 1.31 10*3/uL Normal 1.00-4.00 [facility] Comment on above: Order Comment: Speci men Type: BLOOD SPECIMENOrdering Facility: [facility] Address: [address] [place] [address] Performed By: #### 5 7021-8 ####[facility] LABCLIA [id number] [place] [address] [place]#### 79542-1 ####[facility] LABCLIA [id number] [address] [place] Lymphocytes/100 WBC (Bld) 21.0 % Normal [facility] Comment on above: Order Comment: Speci men Type: BLOOD SPECIMENOrdering Facility: [facility] Address: [facility] [place] [address] Performed By: #### 5 7021-8 ####[facility] LABCLIA [id number] [place] [address] [place]#### 95764-8 ####[facility] LABCLIA [id number] [address] [place] MCH (RBC) [Entitic mass] 35.4 pg High 26.0-34.0 [facility] Comment on above: Order Comment: Speci men Type: BLOOD SPECIMENOrdering Facility: [facility] Address: [address] [place] [address] Performed By: #### 5 7021-8 ####[facility] LABCLIA [id number] [address]#### 68346-4 ####[facility] LABCLIA [id number] [address] [place] MCHC (RBC) [Mass/Vol] 32.6 g/dL Normal 30.5-36.0 [facility] Comment on above: Order Comment: Speci men Type: BLOOD SPECIMENOrdering Facility: [facility] Address: [address] [place] [address] Performed By: #### 5 7021-8 ####[facility] LABCLIA [id number] [address] [place]#### 75390-5 ####[facility] LABCLIA [id number] [place] [address] [place] MCV (RBC) [Entitic vol] 108.7 fL High 80.0-100.0 [facility] Comment on above: Order Comment: Speci men Type: BLOOD SPECIMENOrdering Facility: [facility] Address: [address] [place] [address] Performed By: #### 5 7021-8 ####[facility] LABCLIA [id number] [place] [address] [place] [facility] [place]#### 59629-1 ####[facility] LABCLIA [id number] [place] [address] [place] Monocytes (Bld) [#/Vol] 0.57 10*3/uL Normal <0.87 [facility] Comment on above: Order Comment: Speci men Type: BLOOD SPECIMENOrdering Facility: [facility] Address: [address] [place] [address] Performed By: #### 5 7021-8 ####[facility] LABCLIA [id number] [place], [place] [address] [place] [address]#### 75959-0 ####[facility] LABCLIA [id number] [address] [place] Monocytes/100 WBC (Bld) 9.1 % Normal [facility] Comment on above: Order Comment: Speci men Type: BLOOD SPECIMENOrdering Facility: [facility] Address: [address] [place] [address] Performed By: #### 5 7021-8 ####[facility] LABCLIA [id number] [address]#### 09947-3 ####[facility] LABCLIA [id number] [place] [address] [place] Neutrophils (Bld) [#/Vol] 4.29 10*3/uL Normal 1.45-7.50 [facility] Comment on above: Order Comment: Speci men Type: BLOOD SPECIMENOrdering Facility: [facility] Address: [address] [place] [address] Performed By: #### 5 7021-8 ####[facility] LABCLIA [id number] [address] [place]#### 25452-0 ####[facility] LABCLIA [id number] [address] [place] Neutrophils/100 WBC (Bld) 68.6 % Normal [facility] Comment on above: Order Comment: Speci men Type: BLOOD SPECIMENOrdering Facility: [facility] Address: [address] [place] [address] Performed By: #### 5 7021-8 ####[facility] LABCLIA [id number] [place] [address] [place]#### 12844-7 ####[facility] LABCLIA [id number] [place] [id number] [place] Nucleated RBC (Bld) [#/Vol] Normal [facility] Comment on above: Order Comment: Speci men Type: BLOOD SPECIMENOrdering Facility: [facility] Address: [address] [place] [address] Performed By: #### 5 7021-8 ####[facility] LABCLIA [id number] [place] [address] [place]#### 06035-9 ####[facility] LABCLIA [id number] [place] [address] [place] Nucleated RBC/100 WBC (Bld) [Ratio] Normal [facility] Comment on above: Order Comment: Speci men Type: BLOOD SPECIMENOrdering Facility: [facility] Address: [address] [place] [address] Performed By: #### 5 7021-8 ####[facility] LAB[facility] [id number] [place] [address] [place]#### 25929-9 ####[facility] LABCLIA [id number] [place] [id number] [place] Platelet mean volume (Bld) [Entitic vol] 10.4 fL Normal 9.0-12.7 [facility] Comment on above: Order Comment: Speci men Type: BLOOD SPECIMENOrdering Facility: [facility] Address: [address] [place] [address] Performed By: #### 5 7021-8 ####[facility] [place] LABCLIA [id number] [place], [place] [id number] [place] [address] OF [place]#### 07277-4 ####[facility] LABCLIA [id number] [place] [address] [place] Platelets (Bld) [#/Vol] 195 10*3/uL Normal 150-400 [facility] Comment on above: Order Comment: Speci men Type: BLOOD SPECIMENOrdering Facility: [facility] Address: [address] [place] [address] Performed By: #### 5 7021-8 ####[facility] [place] LABCLIA [id number] [place] [address] [place]#### 44326-9 ####[facility] LABCLIA [id number] [place] [address] [place] RBC (Bld) [#/Vol] 3.22 10*6/uL Low 4.20-6.00 [facility] Comment on above: Order Comment: Speci men Type: BLOOD SPECIMENOrdering Facility: [facility] Address: [address] [place] [address] Performed By: #### 5 7021-8 ####[facility] [place] LABCLIA [id number] [place] [address] [place] [facility]#### 05223-6 ####[facility] LABCLIA [id number] [place] [address] [place] WBC (Bld) [#/Vol] 6.25 10*3/uL Normal 3.70-11.00 [facility] Comment on above: Order Comment: Speci men Type: BLOOD SPECIMENOrdering Facility: [facility] Address: [facility] [place] [address] Performed By: #### 5 7021-8 ####[facility] [place] LABCLIA [id number] [place] [address] [place]#### 75934-3 ####[facility] LABCLIA [id number] [facility] [id number] [address] [place] CNOVon 08-09-2023 CNOV Office Visit (DALJIT CALL) ANALILIA MELENDREZ ([id number]) 1960 M Date Time Provider Department 08/09/23 1:20 PM MARIANNA WAGNER During your visit today, we recorded the following information about you: Temperature Pulse Blood pressure Weight 99 degrees 98/minute 122/76 63 kg Height 1.803 m Marianna Wagner APRN.SPLUNK D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 08/13/2023 12:[address] [facility] Marianna Wagner VEHICLE DISMANTLER-SPLUNK D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 [address] [place] [address] Dept Dept. Visit Date: August 09, 2023 Mr.Steven Melendrez Date of : 1960 MRN/E #: [id number] Chief Complaint: Patient presents with: Establish Care: Previous pt. Of dr. Young at [facility]. Think he may have a seizure or stoke. Went to residential for 5 week. ([facility]) Diarrhea: X 2 months. BM is orange . Loss of weight . Goes 8 times a day History of Present Illness Analilia Melendrez is a 63 year old male presenting today as a new patient to establish care. I reviewed past medical, surgical, social, and family histories today and updated chart. Allergies, chronic medications, and supplements were also reviewed. PMH of DM type 2 on insulin, Having chronic diarrhea for the last 2 months. Can go up to 6-8 x a day. The color is orange. No blood that he can see. Having upper abdominal pain. Hx of pancreatitis. He is having upper abdominal pain. He is taking a PPI. Upper GI in the past. Last colonoscopy was about 30 years ago. Has been losing weight since then. Has lost about 25 lbs. Was 165 lbs prior to the residential in June. Has frequent nausea and vomiting. Has a low appetite Unsure of what his last A1C was BS are either really high or low. Has a freestyle mango. Taking Lantus insulin. No meal time insulin. Taking Farxiga and Metformin (has been on that for awhile). Was supposed to follow with a ultrasound sonographer Hx of aortic valve replacement Had a congenital aortic aneurysm Has a pacemaker Has had heart attack He is not following with any specialists right now. States he either had a seizure or stroke and was placed in the hospital and then went to a residential for 5 weeks. 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 Started smoking again, 5-10 cigarettes Has quit in the past, up to a year Drinks alcohol 1 beer every other Used to drink vodka every day, approximately 3 years ago Was in rehab before No marijuana or illicit drugs. 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 Son overdosed and 8 years ago. EKG Summary: 05/04/2021 Sinus rhythm...normal P axis, V-rate 50- 99 Probable left atrial enlargement...P >50mS, <-0.10mV V1 Right bundle branch block...QRSd>120, terminal axis(90,270) Inferior infarct, old...Q >35mS, II III aVF Echocardiogram Summary (03/2020): 1. Left ventricular systolic function is normal. 2. The estimated ejection fraction is 70%. 3. Severe concentric left ventricular hypertrophy. 4. Mild diffuse mitral valve thickening. 5. Trivial mitral valve insufficiency. 6. Mild tricuspid valve insufficiency. 7. Stable appearing bioprosthetic aortic valve apparatus. 8. Right ventricular systolic pressure estimated to be 19 mmHg. 9. Transmitral Doppler flow suggestive of impaired relaxation of left ventricle. HPI PAST MEDICAL HISTORY Diagnosis Date Anxiety Aortic aneurysm ([facility]) S/P Repair Aortic aneurysm ([facility]) Aortic valve disorder S/P Replacement CAD (coronary artery disease) nonobstructive Coronary artery disease Depression Diabetes mellitus, type II ([facility]) Insulin dependent Hx of ascending aorta repair Hyperlipidemia Hypertension Non-ST elevation AZ (NSTEMI) ([facility]) 06/24 NSTEMI (non-ST elevated myocardial infarction) (HCC) Pacemaker Pacemaker Paroxysmal atrial fibrillation (HCC) RBBB (right bundle branch block) S/P aortic valve replacement [facility] mechanical Syncope Tachy-fernando syndrome (HCC) Tachy-fernando syndrome (HCC) Tobacco abuse chronic Tobacco user Type 2 diabetes mellitus (HCC) PAST SURGICAL HISTORY Procedure Laterality Date ABD AORTIC ANEURYSM REPAIR ASCENDING AORTA GRAFT W/AORTIC ROOT CORONARY ARTERY BYPASS GRAFT HX 2017 2005 HEART CATHETERIZATION 06/24/2016 HEART VALVE REPLACEMENT 2017 Aortic x2 ;2015 HERNIA REPAIR HX PACEMAKER 06/25/2016 REPLACEMENT AORTIC VALVE W BYPASS Social History Tobacco Use Smoking status: Every Day Packs/day: .5 Types: Cigarettes Last attempt to quit: 03/09/2016 Years since quittin.4 Smokeless tobacco: Never Substance Use Topics Alcohol use: Yes Drug use: No Social History Social History Narrative Merged History Encounter Family History Reviewed Including Cardiac Diseases, Psychiatric Diseases, AND Substance Abuse Problem: Coronary Artery (more content not included)... Normal [facility] Comprehensive metabolic 2000 panelon 08-09-2023 Albumin [Mass/Vol] 2.7 g/dL Low 3.9 - 4.9 g/dL [facility] ALP [Catalytic activity/Vol] 211 U/L High 38 - 113 U/L [facility] ALT With P-5'-P [Catalytic activity/Vol] 53 U/L 10 - 54 U/L [facility] Anion gap [Moles/Vol] 13 mmol/L 8 - 15 mmol/L [facility] AST With P-5'-P [Catalytic activity/Vol] 179 U/L High 14 - 40 U/L [facility] Bilirubin [Mass/Vol] 0.5 mg/dL 0.2 - 1 .3 mg/dL [facility] Calcium [Mass/Vol] 8.3 mg/dL Low 8.5 - 10. 2 mg/dL [facility] Chloride [Moles/Vol] 99 mmol/L 98 - 10 7 mmol/L [facility] CO2 [Moles/Vol] 30 mmol/L 22 - 30 mmol/L [facility] Creatinine [Mass/Vol] 1.36 mg/dL High 0.73 - 1.22 mg/dL [facility] GFR/1.73 sq M.predicted among non-blacks MDRD (S/P/Bld) [Vol rate/Area] 59 mL/min/{1.73_m2} Low - PINF [facility] Comment on above: Estimated Glomerular Filtration Rate (eGFR) is calculated using the 2020 CKD-EPI creatinine equation. This equation utilizes serum creatinine, sex, and age as parameters. The creatinine assay has traceable calibration to isotope dilution-mass spectrometry. Refer to KDIGO guidelines for clinical interpretation. In patients with unstable renal function, e.g. those with acute kidney injury, the eGFR may not accurately reflect actual GFR. Glucose [Mass/Vol] 165 mg/dL High 74 - 99 mg/dL [facility] Comment on above: The [place] Diabete s Association (ADA) provides guidance for cutoff values for fasting glucose and random glucose. The ADA defines fasting as no caloric intake for at least 8 hours. Fasting plasma glucose results between 100 to 125 [...] Standards of Medical Care in Diabetes 2016, [place] Diabetes Association. Diabetes Care. 2016.39(Suppl 1). Potassium [Moles/Vol] 4.7 mmol/L 3.7 - 5.1 mmol/L [facility] Protein [Mass/Vol] 6.6 g/dL 6.3 - 8.0 g/dL [facility] Sodium [Moles/Vol] 142 mmol/L 136 - 144 mmol/L [facility] Urea nitrogen [Mass/Vol] 10 mg/dL 9 - 24 mg/dL [facility] Albumin [Mass/Vol] 2.7 g/dL Low 3.9-4.9 [facility] Comment on above: Order Comment: Speci men Type: BLOOD SPECIMENOrdering Facility: [facility] Address: [address] [place] [address] Performed By: #### 3 016-3, 96539-8, 97987-8, 3040-3 ####[facility] LABCLIA [id number] [place] [id number] [place] ALP [Catalytic activity/Vol] 211 U/L High 38-113 [facility] Comment on above: Order Comment: Speci men Type: BLOOD SPECIMENOrdering Facility: [facility] Address: [address] [place] [address] Performed By: #### 3 016-3, 25693-9, 46849-2, 3040-3 ####[facility] [place] LABCLIA [id number] [facility] [place] [address] [place] [facility] ALT With P-5'-P [Catalytic activity/Vol] 53 U/L Normal 10-54 [facility] Comment on above: Order Comment: Speci men Type: BLOOD SPECIMENOrdering Facility: [facility] Address: [address] [place] [address] Performed By: #### 3 016-3, 11440-1, 86176-3, 3040-3 ####[facility] LABCLIA [id number] [facility] [place] [address] [place] [facility] Anion gap [Moles/Vol] 13 mmol/L Normal 8-15 [facility] Comment on above: Order Comment: Speci men Type: BLOOD SPECIMENOrdering Facility: [facility] Address: [address] [place] [address] Performed By: #### 3 016-3, 45273-3, 58163-7, 3040-3 ####[facility] [place] LABCLIA [id number] [facility] [place] [address] [facility] [place] AST With P-5'-P [Catalytic activity/Vol] 179 U/L High 14-40 [facility] Comment on above: Order Comment: Speci men Type: BLOOD SPECIMENOrdering Facility: [facility] Address: [address] [place] [address] Performed By: #### 3 016-3, 60443-8, 34713-2, 3040-3 ####[facility] [place] LABCLIA [id number] [place] [address] [place] Bilirubin [Mass/Vol] 0.5 mg/dL Normal 0.2-1.3 [facility] Comment on above: Order Comment: Speci men Type: BLOOD SPECIMENOrdering Facility: [facility] Address: [address] [place] [address] Performed By: #### 3 016-3, 29443-8, 50496-3, 0-3 ####[facility] [place] LABCLIA [id number] [place] [address] [place] Calcium [Mass/Vol] 8.3 mg/dL Low 8.5-10.2 [facility] Comment on above: Order Comment: Speci men Type: BLOOD SPECIMENOrdering Facility: [facility] Address: [address] [place] [address] Performed By: #### 3 016-3, 49763-9, 68316-0, 0-3 ####[facility] [place] LABCLIA [id number] [place] [address] [place] Chloride [Moles/Vol] 99 mmol/L Normal 98-107 [facility] Comment on above: Order Comment: Speci men Type: BLOOD SPECIMENOrdering Facility: [facility] Address: [address] [place] [address] Performed By: #### 3 016-3, 47139-1, 70881-6, 0-3 ####[facility] [place] LABCLIA [id number] [place] [address] [place] CO2 [Moles/Vol] 30 mmol/L Normal 22-30 [facility] Comment on above: Order Comment: Speci men Type: BLOOD SPECIMENOrdering Facility: [facility] Address: [address] [place] [address] Performed By: #### 3 016-3, 67354-8, 62185-6, 3040-3 ####[facility] [place] LABCLIA [id number] [place] [address] [place] Creatinine [Mass/Vol] 1.36 mg/dL High 0.73-1.22 [facility] Comment on above: Order Comment: Speci men Type: BLOOD SPECIMENOrdering Facility: [facility] Address: [address] [place] [address] Performed By: #### 3 016-3, 06521-9, 85355-8, 3040-3 ####SHE[facility] LABCLIA [id number] [place] [address] [place]BL[place] Creatinine and Glomerular filtration rate.predicted panel (S/P/Bld) 59 mL/min/1.73m??? Low >=60 [facility] Comment on above: Order Comment: Corbysonja nowak Type: BLOOD SPECIMENOrdering Facility: [facility] Address: [address] [place] [address] Result Comment: Gurwinder mated Glomerular Filtration Rate (eGFR) is calculated using the 2020 CKD-EPI creatinine equation. This equation utilizes serum creatinine, sex, and age as parameters. The creatinine assay has traceable calibration to isotope dilution-mass spectrometry. Refer to KDIGO guidelines for clinical interpretation. In patients with unstable renal function, e.g. those with acute kidney injury, the eGFR may not accurately reflect actual GFR. Performed By: #### 3 016-3, 97282-2, 03454-2, 3040-3 ####[facility]HEILA [facility] LABIA [id number] [place] [address] [place] Glucose [Mass/Vol] 165 mg/dL High 74-99 [facility] Comment on above: Order Comment: Gini nowak Type: BLOOD SPECIMENOrdering Facility: [facility] Address: [address] [place] [address] Result Comment: The [place] Diabetes Association (ADA) provides guidance for cutoff values for fasting glucose and random glucose. The ADA defines fasting as no caloric intake for at least 8 hours. Fasting plasma glucose results between 100 to 125 [...] Standards of Medical Care in Diabetes 2016, [place] Diabetes Association. Diabetes Care. 2016.39(Suppl 1). Performed By: #### 3 016-3, 27641-7, 20526-4, 3040-3 ####SHEILA [facility] LABCLIA [id number] [place] [address] [place] Potassium [Moles/Vol] 4.7 mmol/L Normal 3.7-5.1 [facility] Comment on above: Order Comment: Speci men Type: BLOOD SPECIMENOrdering Facility: [facility] Address: [address] [place], [place] [address] Performed By: #### 3 016-3, 32928-4, 85807-1, 3040-3 ####[facility]ILA [facility] LABCLIA [id number] [place] [address] [place] Protein [Mass/Vol] 6.6 g/dL Normal 6.3-8.0 [facility] Comment on above: Order Comment: Speci men Type: BLOOD SPECIMENOrdering Facility: [facility] Address: [address] [place], [place] [address] Performed By: #### 3 016-3, 22254-1, 10795-6, 3040-3 ####[facility] LABCLIA [id number] [place] [address] [place] Sodium [Moles/Vol] 142 mmol/L Normal 136-144 [facility] Comment on above: Order Comment: Speci men Type: BLOOD SPECIMENOrdering Facility: [facility] Address: [address] [place], [place] [address] Performed By: #### 3 016-3, 54795-9, 27552-2, 3040-3 ####[facility] [place] LABCLIA [id number] [place] [address] [place] Urea nitrogen [Mass/Vol] 10 mg/dL Normal 9-24 [facility] Comment on above: Order Comment: Speci men Type: BLOOD SPECIMENOrdering Facility: [facility] Address: [address] [place], [place] [address] Performed By: #### 3 016-3, 57664-9, 60189-1, 3040-3 ####[facility] LABCLIA [id number] [place] [address] [place] Ferritin SerPl-mCncon 2023 Ferritin [Mass/Vol] 561.0 ng/mL Normal 30.3-565.7 [facility] Comment on above: Order Comment: Speci men Type: BLOOD SPECIMENOrdering Facility: [facility] Address: [address] [place] [address] Performed By: #### 2 276-4, 83617-7, PSAS1 ####[facility] [id number] [address] OF [facility] Folate SerPl-mCncon 08-09-19 Folate [Mass/Vol] 19.5 ng/mL Normal >4.7 [facility] Comment on above: Order Comment: Speci men Type: BLOOD SPECIMENOrdering Facility: [facility] Address: [address] [place] [address] Performed By: #### 2 2314-9, 5195-3, 2284-8, 99288-4 ####[facility] [id number] [address] OF [facility] HAV IgM Ser Qlon 08-09-2023 HAV IgM Ql (S) Non-Reactive Normal Nonreactive [facility] Comment on above: Order Comment: Speci men Type: BLOOD SPECIMENOrdering Facility: [facility] Address: [address] [place] [address] Result Comment: No e vidence of recent infection with Hepatitis A virus. Performed By: #### 2 2314-9, 5195-3, 2284-8, 90968-3 ####[facility] LABORATORYCLIA [id number] [address] OF [facility] HBV core IgM Ser Qlon 2023 HBV core IgM Ql (S) Non-Reactive Normal Nonreactive [facility] Comment on above: Order Comment: Speci men Type: BLOOD SPECIMENOrdering Facility: [facility] Address: [address] [place] [address] Result Comment: No e vidence of recent infection with Hepatitis B virus. Should recent infection be suspected, repeat testing may be considered 3-4 weeks after this draw. Performed By: #### 2 2314-9, 5195-3, 2284-8, 20422-6 ####[facility] LABORATORYCLIA [id number] [address] [place] HBV surface Ag Ser Qlon 07-0 HBV surface Ag Ql (S) Non-Reactive Normal Nonreactive [facility] Comment on above: Order Comment: Speci men Type: BLOOD SPECIMENOrdering Facility: [facility] Address: [address] [place] [address] Performed By: #### 2 2314-9, 5195-3, 4-8, 56913-8 ####[facility] LABORATORYCLIA [id number] [address] OF [place] HCV Ab Ser Qlon 08-09-2023 HCV Ab Ql (S) Non-Reactive Normal Nonreactive [facility] Comment on above: Order Comment: Speci men Type: BLOOD SPECIMENOrdering Facility: [facility] Address: [address] [place] [address] Result Comment: The result suggests no evidence of active infection with Hepatitis C virus. Should recent infection be suspected, repeat testing may be considered 4-6 weeks after this draw. Performed By: #### 1 6128-1 ####[facility] LABORATORYCLIA [id number] [address] OF [place] HIV 1+2 Ab IA Qlon 4 HIV 1 and 2 Ab IA.rapid Nom (S/P/Bld) Normal [facility] Comment on above: Order Comment: Speci men Type: BLOOD SPECIMENOrdering Facility: [facility] Address: [address] [place] [address] Result Comment: Test not indicated. Performed By: #### 3 1201-7, 2132-9 ####[facility] LABORATORYCLIA [id number] [place] [address] [place] HIV 1+2 Ab+HIV1 p24 Ag IA Ql Non-Reactive Normal Nonreactive [facility] Comment on above: Order Comment: Speci men Type: BLOOD SPECIMENOrdering Facility: [facility] Address: [address] [place] [address] Result Comment: [place] Rev. Code 3701.243(E): This information has been disclosed to you from confidential records protected from disclosure by state law. ???You shall make no further disclosure of this information without the specific, written, and informed release of the individual to whom it pertains or as otherwise permitted by state law. A general authorization for the release of medical or other information is not sufficient for the purpose of the release of HIV test results or diagnoses. Test methodology for this assay has moved from Hubsphereaur XP to groopifyas 8000 effective November 11, 2021. Please note there may be a change in the reporting units and/or reference range. Performed By: #### 3 1201-7, 9 ####[facility] LABORATORYCLIA [id number] [address] [place] HIV immunoassay testing algorithm interpretation (S/P/Bld) [Interp] Normal [facility] Comment on above: Order Comment: Speci men Type: BLOOD SPECIMENOrdering Facility: [facility] Address: [address] [place] [address] Result Comment: No e vidence of HIV-1 or HIV-2 infection. Should recent infection be suspected, repeat testing may be considered 2-3 weeks after this draw. Performed By: #### 3 1201-7, 2131-10 ####[facility] LABORATORYCLIA [id number] [address] [place] HbA1c (Bld)on 08-09-2023 Average glucose Estimated from glycated hemoglobin (Bld) [Mass/Vol] 148 mg/dL Normal [facility] Comment on above: Order Comment: Speci men Type: BLOOD SPECIMENOrdering Facility: [facility] Address: [address] [place] [address] Result Comment: eAG: (Estimated average glucose) is a calculated value from HgbA1c and is sales representative sales manager of the average blood glucose level in the last 2-3 month period. Performed By: #### 5 7021-8 ####[facility] [place] LABCLIA [id number] [address] [place]#### 23120-9 ####[facility] LABCLIA [id number] [address] [place] HbA1c (Bld) [Mass fraction] 6.8 % High 4.3-5.6 [facility] Comment on above: Order Comment: Speci men Type: BLOOD SPECIMENOrdering Facility: [facility] Address: [address] [place] [address] Result Comment: [place] Diabetes Association guidelines indicate that patients with HgbA1c in the range 5.7-6.4% are at increased risk for development of diabetes, and intervention by lifestyle modification may be beneficial. HgbA1c greater or equal to 6.5% is considered diagnostic of diabetes. Performed By: #### 5 7021-8 ####[facility] LABCLIA [id number] [address] [place]#### 89825-6 ####[facility] LABCLIA [id number] [address] [place] Iron and Iron binding capaci ty panelon 08-09-2023 Iron [Mass/Vol] 108 ug/dL Normal 41-186 [facility] Comment on above: Order Comment: Speci men Type: BLOOD SPECIMENOrdering Facility: [facility] Address: [address] [place] [address] Performed By: #### 2 276-4, 54894-4, PSAS1 ####[facility] LABORATORYCLIA [id number] [address] STATES [facility] Iron binding capacity [Mass/Vol] <125 Low 232-386 [facility] Comment on above: Order Comment: Speci men Type: BLOOD SPECIMENOrdering Facility: [facility] Address: [address] [place] [address] Performed By: #### 2 276-4, 74832-0, PSAS1 ####[facility] LABORATORYCLIA [id number] [place] [address] [facility] Iron saturation [Mass fraction] >86.4 High 15.0-57.0 [facility] Comment on above: Order Comment: Speci men Type: BLOOD SPECIMENOrdering Facility: [facility] [facility] Address: [address] [place], [place] [id number] Performed By: #### 2 276-4, 73614-6, PSAS1 ####[facility] LABORATORYCLIA [id number] [place] [address] [place] LIPASEon 4 Lipase [Catalytic activity/Vol] 4 U/L Low 16 - 61 U/L [facility] Lipase SerPl-cCncon 08-09-19 24 Lipase [Catalytic activity/Vol] 4 U/L Low 16-61 [facility] Comment on above: Order Comment: Speci men Type: BLOOD SPECIMENOrdering Facility: [facility] Address: [address] [place], [place] [address] Performed By: #### 3 016-3, 48968-2, 16636-2, 3040-3 ####[facility] LABCLIA [id number] [place] [address] [facility] Lipid 1996 panelon 4 Cholesterol [Mass/Vol] 104 mg/dL NINF - 200 mg/dL [facility] Comment on above: <200 mg/dL, Desirabl e 200-239 mg/dL, Borderline high >239 mg/dL, High Cholesterol in HDL [Mass/Vol] 30 mg/dL Low 39 - PINF mg/dL [facility] Comment on above: 40-59 mg/dL, Accepta ble >59 mg/dL, High: Negative risk factor for coronary heart disease <40 mg/dL, Low: Positive risk factor for coronary heart disease Cholesterol in LDL [Mass/Vol] 32 mg/dL NINF - 100 mg/dL [facility] Comment on above: <100 mg/dL, Optimal 100-129 mg/dL, Near optimal/above optimal 130-159 mg/dL, Borderline high 160-189 mg/dL, High >189 mg/dL, Very high Secondary prevention optimal LDL Cholesterol levels are recommended to be < 70 mg/dL Cholesterol in LDL/Cholesterol in HDL [Mass ratio] 1.07 {ratio} NINF - 2.54 [facility] Comment on above: Reference: 1. National Cholesterol Education Program ATP III Guideline At-A-Glance Quick Desk Reference: National Heart, Lung, and Blood [place]. National Institutes of Health. 2001: NIH Publication No. 01-3305. 2. An International Atherosclerosis Society position paper: global recommendations for the management of dyslipidemia: executive summary, Atherosclerosis. 2014: 232(2):410-413. Cholesterol in VLDL [Mass/Vol] 42 mg/dL High NINF - 30 mg/dL [facility] Cholesterol non HDL [Mass/Vol] 74 mg/dL NINF - 130 mg/dL [facility] Comment on above: <130 mg/dL, Optimal 130-159 mg/dL, Near optimal/above optimal 160-189 mg/dL, Borderline high 190-219 mg/dL, High >219 mg/dL, Very high Secondary prevention optimal non HDL Cholesterol levels are recommended to be <100 mg/dL Cholesterol.total/Livia sterol in HDL [Mass ratio] 3.47 {ratio} NINF - 5.10 [facility] Fasting Time 12 hrs [facility] Triglyceride [Mass/Vol] 211 mg/dL High NINF - 150 mg/dL [facility] Comment on above: <150 mg/dL, Normal 150-199 mg/dL, Borderline high 200-499 mg/dL, High >499 mg/dL, Very high Cholesterol [Mass/Vol] 104 mg/dL Normal <200 [facility] Comment on above: Order Comment: Speci men Type: BLOOD SPECIMENOrdering Facility: [facility] Address: [address] [place] [address] Result Comment: <200 mg/dL, Desirable 200-239 mg/dL, Borderline high >239 mg/dL, High Performed By: #### 3 016-3, 51628-4, 14171-1, 3040-3 ####[facility] LOD LABCLIA [id number] [place] [address] [place] Cholesterol in HDL [Mass/Vol] 30 mg/dL Low >39 [facility] Comment on above: Order Comment: Speci men Type: BLOOD SPECIMENOrdering Facility: [facility] Address: [address] [place] [address] Result Comment: 40-5 9 mg/dL, Acceptable >59 mg/dL, High: Negative risk factor for coronary heart disease <40 mg/dL, Low: Positive risk factor for coronary heart disease Performed By: #### 3 016-3, 88110-7, 89308-0, 3040-3 ####[facility] LABCLIA [id number] [place] [address] [facility] Cholesterol in LDL [Mass/Vol] 32 mg/dL Normal <100 [facility] Comment on above: Order Comment: Corbyi men Type: BLOOD SPECIMENOrdering Facility: [facility] Address: [address] [place] [address] Result Comment: <100 mg/dL, Optimal 100-129 mg/dL, Near optimal/above optimal 130-159 mg/dL, Borderline high 160-189 mg/dL, High >189 mg/dL, Very high Secondary prevention optimal LDL Cholesterol levels are recommended to be < 70 mg/dL Performed By: #### 3 016-3, 64707-5, 27649-7, 0-3 ####[facility] LABCLIA [id number] [place] [address] [facility] Cholesterol in LDL/Cholesterol in HDL [Mass ratio] 1.07 {ratio} Normal <2.54 [facility] Comment on above: Order Comment: Corbyi men Type: BLOOD SPECIMENOrdering Facility: [facility] Address: [address] [place] [address] Result Comment: Refe rence: 1. National Cholesterol Education Program ATP III Guideline At-A-Glance Quick Desk Reference: National Heart, Lung, and Blood [place]. National Institutes of Health. 2001: NIH Publication No. 01-3305. 2. An International Atherosclerosis Society position paper: global recommendations for the management of dyslipidemia: executive summary, Atherosclerosis. 2014: 232(2):410-413. Performed By: #### 3 016-3, 80960-2, 89140-0, 3040-3 ####[facility] LABCLIA [id number] [place] [address] [place] Cholesterol in VLDL [Mass/Vol] 42 mg/dL High <30 [facility] Comment on above: Order Comment: Speci men Type: BLOOD SPECIMENOrdering Facility: [facility] Address: [address] [place], [place] [address] Performed By: #### 3 016-3, 16758-7, 25882-6, 0-3 ####[facility] LABCLIA [id number] [place] [address] [place] Cholesterol non HDL [Mass/Vol] 74 mg/dL Normal <130 [facility] Comment on above: Order Comment: Speci men Type: BLOOD SPECIMENOrdering Facility: [facility] Address: [address] [place] [address] Result Comment: <130 mg/dL, Optimal 130-159 mg/dL, Near optimal/above optimal 160-189 mg/dL, Borderline high 190-219 mg/dL, High >219 mg/dL, Very high Secondary prevention optimal non HDL Cholesterol levels are recommended to be <100 mg/dL Performed By: #### 3 016-3, 96739-2, 16273-9, 0-3 ####[facility] LABCLIA [id number] [place] [address] [place] Cholesterol.total/Livia sterol in HDL [Mass ratio] 3.47 {ratio} Normal <5.10 [facility] Comment on above: Order Comment: Speci men Type: BLOOD SPECIMENOrdering Facility: [facility] Address: [address] [id number] Performed By: #### 3 016-3, 00085-9, 00474-5, 0-3 ####[facility] LABCLIA [id number] [place] [address] [facility] [place] FASTING TIME 12 hrs Normal [facility] Comment on above: Order Comment: Speci men Type: BLOOD SPECIMENOrdering Facility: [facility] Address: [address] [place] [address] Performed By: #### 3 016-3, 20241-3, 46608-9, 3040-3 ####[facility] LABCLIA [id number] [place] [address] [facility] Triglyceride [Mass/Vol] 211 mg/dL High <150 [facility] Comment on above: Order Comment: Speci men Type: BLOOD SPECIMENOrdering Facility: [facility] Address: [address] [place] [address] Result Comment: <150 mg/dL, Normal 150-199 mg/dL, Borderline high 200-499 mg/dL, High >499 mg/dL, Very high Performed By: #### 3 016-3, 82162-6, 79303-1, 3040-3 ####[facility] LABCLIA [id number] [place] [address] [facility] No Panel Informationon 08-08 Interpretation and review of laboratory results Abnormal [facility] PSA/PROSTATE SPECIFIC ANTIGE N SCREENINGon 08-09-2023 Prostate specific Ag [Mass/Vol] 0.78 ng/mL Normal <2.60 [facility] Comment on above: Order Comment: Speci men Type: BLOOD SPECIMENOrdering Facility: [facility] Address: [address] [place] [address] Result Comment: Tota l PSA test methodology used is the Electrochemiluminescence Immunoassay by [employer]. Total PSA values by differing methodologies cannot be interchanged. Performed By: #### 2 276-4, 56011-7, PSAS1 ####[facility] LABORATORYCLIA [id number] [place] [address] [place] THYROID STIMULATING HORMONEo n 08-09-2023 TSH Qn 1.170 m[IU]/L [facility] TSH Qnon 08-09-2023 Interpretation and review of laboratory results Normal [facility] TSH SerPl-aCncon 08-09-2023 TSH Qn 1.170 m[IU]/L Normal 0.270-4.200 [facility] Comment on above: Order Comment: Speci men Type: BLOOD SPECIMENOrdering Facility: [facility] Address: [address] [id number] Performed By: #### 3 016-3, 05382-9, 62355-9, 3040-3 ####[facility] LABCLIA [id number] [place] [address] [place] UA DIP, URINE (POC)on 2023 BILIRUBIN UA (POCT) Negative Negative [facility] CLARITY UA (POCT) Cloudy [facility] COLOR UA (POCT) Other [facility] GLUCOSE UA (POCT) 500 mg/dL Abnormal Negative [facility] Hemoglobin Ql (U) Trace-intact Abnormal Negative [facility] Interpretation and review of laboratory results Abnormal [facility] KETONE UA (POCT) Negative Negative mg/dL [facility] LEUKOCYTES UA (POCT) Small Abnormal Negative [facility] NITRITE UA (POCT) Negative Negative [facility] PH UA (POCT) >=9.0 Abnormal 4.5 - 8.0 [facility] Protein Ql (U) 30 mg/dL Abnormal Negative [facility] SPECIFIC GRAVITY UA (POCT) 1.015 1.005 - 1.030 [facility] UROBILINOGEN UA (POCT) 0.2 Orin l E.U./dL [facility] Location:[facility] [address] [place] [address], [address] [place] [address] POINT OF CARE [facility] Vit B12 [facility] 08-08- 024 Cobalamin (Vitamin B12) [Mass/Vol] 1523 pg/mL High 232-1245 [facility] Comment on above: Order Comment: Speci men Type: BLOOD SPECIMENOrdering Facility: [facility] Address: [address] [place] [address] Performed By: #### 3 1201-7, 2132-9 ####[facility] LABORATORYCLIA [id number] [place] [address] [place] Absolute lymphocyte countOrd ered By: Refugio Rojas on 05-20-2023 Lymphocytes Auto (Unsp spec) [#/Vol] 1.20 10*3/uL 0.83-4.51 [facility] Automated lymphocyte count a s percentage of total leukocytesOrdered By: Refugio Rojas on 05-20-2023 Lymphocytes/100 WBC Auto (Unsp spec) 9.8 % 19-41 [facility] Basophil percentageOrdered B y: Refugio Rojas on 05-20-2023 Basophil percentage 8.5 g/dL 13.0-16.[address] [facility] Basophils (Bld) [#/Vol] 12.2 10*3/uL 4.4-11.0 [facility] Basophils (Bld) [#/Vol] 10.1 10*3/uL 2.0-7.7 [facility] Basophils/100 WBC (Bld) 82.4 % 47-70 [facility] Basophils/100 WBC (Bld) 5.6 % 0-10 [facility] Basophils/100 WBC (Bld) 0.7 % 0-1 [facility] Basophil percentageOrdered B y: Estefany Donnelly on 05-20-2023 Basophil percentage 145 mg/dL 74-[address] [facility] Basophil percentage 3.1 mg/dL 2.5-4.[address] [facility] Basophil percentage 139 mmol/L 136-[address] [facility] Basophil percentage 4.7 mmol/L 3.5-5.[address] [facility] Basophil percentage 109 mmol/L 98-[address] [facility] Blood manual differential co mment interpretation (narrative result)Ordered By: Refugio Rojas on 05-20-2023 Manual differential comment Jose Carlos (Bld) [Interp] SCANNED [facility] Determination of erythrocyte mean corpuscular volume (MCV)Ordered By: Refugio Rojas on 05-20-2023 MCV (RBC) [Entitic vol] 101.9 fL 80-94 [facility] Erythrocyte distribution wid th ratioOrdered By: Refugio Rojas on 05-20-2023 Erythrocyte distribution width (RBC) [Ratio] 18.5 % 11.6-14.6 [facility] Erythrocyte distribution wid th standard deviationOrdered By: Refugio Rojas on 05-20-2023 Erythrocyte distribution width (RBC) [Entitic vol] 68.9 fL 35.1-43.9 [facility] Hematocrit Auto (Bld) [Volum e fraction]Ordered By: Refugio Rojas on 05-20-2023 Hematocrit (Bld) [Volume fraction] 26.4 % 40-54 [facility] Immature granulocytes/100 WB C Auto (Bld)Ordered By: Refugio Rojas on 05-20-2023 Immature granulocytes/100 WBC (Bld) 0.800 % 0.0-0.9 [facility] No Panel InformationOrdered By: Refugio Rojas on 05-20-2023 32.8 pg 27.0-32.0 [facility] 32.2 g/dL 32-36 [facility] 264 K/mm3 150-450 [facility] 11.9 fl 6.2-12.0 [facility] 0 % 0-5 [facility] 1+ [facility] No Panel InformationOrdered By: Estefany Donnelly on 05-20-2023 35 mL/min >60 [facility] 42 mL/min >60 [facility] 40.22 ml/min [facility] 9.1 RATIO 10-20 [facility] 28.0 mmol/L 21.0-32.0 [facility] RBC Auto (Bld) [#/Vol]Ordere d By: Refugio Rojas on 05-20-2023 RBC (Bld) [#/Vol] 2.59 10*6/uL 4.6-6.[address] [facility] Serum or plasma calcium luciana urement (mass/volume)Ordered By: Esteafny Donnelly on 05-20-2023 Calcium [Mass/Vol] 7.8 mg/dL 8.5-10.1 [facility] Serum or plasma creatinine m easurement (mass/volume)Ordered By: Estefany Donnelly on 05-20-2023 Creatinine [Mass/Vol] 2.08 mg/dL 0.70-1.30 [facility] Serum or plasma urea nitroge n measurement (mass/volume)Ordered By: Estefany Donnelly on 05-20-2023 Urea nitrogen [Mass/Vol] 19 mg/dL 7-18 [facility] Thin prep Papanicolaou smear with manual screeningOrdered By: Refugio Rojas on 05-20-2023 Thin prep Papanicolaou smear with manual screening 265 mg/dL 74-106 [facility] Thin prep Papanicolaou smear with manual screeningOrdered By: Estefany Donnelly on 05-20-2023 Thin prep Papanicolaou smear with manual screening 1.4 g/dL 3.2-5.0 [facility] Thin prep Papanicolaou smear with manual screeningOrdered By: Refugio Rojas on 05-19-2023 Thin prep Papanicolaou smear with manual screening 2 5-15 [facility] Iron measurement (mass/mass) Ordered By: Conrado Morel on 05-17-2023 Iron (Unsp spec) [Mass/Mass] 28 ug/dL 65-175 [facility] No Panel InformationOrdered By: Conrado Morel on 05-17-2023 > 2000 pg/mL 211-911 [facility] 45 ug/dL 250-450 [facility] 419 ng/mL 26-388 [facility] Serum or plasma iron saturat ion measurement (mass fraction)Ordered By: Conraod Morel on 05-17-2023 Iron saturation [Mass fraction] 62.2 % 15.0-55.0 [facility] Basophil percentageOrdered B y: Conrado Morel on 05-16-2023 Basophil percentage 4.6 g/dL 6.4-8.[address] [facility] Basophil percentage 0.40 mg/dL 0.20-1.[address] [facility] Lower GI hemoglobin IA Ql (S tl)Ordered By: Conrado Morel on 05-16-2023 Stool gastrointestinal hemoglobin detection by immunologic method Positive [facility] No Panel InformationOrdered By: Conrado Morel on 05-16-2023 3.6 g/dL 2.2-4.2 [facility] 0.3 RATIO 0.9-2.4 [facility] 152 U/L 45-117 [facility] 25 U/L 16-61 [facility] 2.2 mg/dL 1.6-2.6 [facility] Thin prep Papanicolaou smear with manual screeningOrdered By: Conrado Morel on 05-16-2023 Thin prep Papanicolaou smear with manual screening 41 U/L 15-37 [facility] Blood platelet adequacy dete ction by light microscopyOrdered By: Conrado Morel on 05-14-2023 Platelets LM Ql (Bld) MKD DEC ADEQ [facility] No Panel InformationOrdered By: Conrado Morel on 05-14-2023 RARE [facility] Review by pathologistOrdered By: Conrado Morel on 05-14-2023 Pathologist review Jose Carlos (Unsp spec) [Interp] Reviewed [facility] Assessment of wrist artery p atency prior to arterial punctureOrdered By: Conrado Morel on 05-12-2023 Arterial patency Wrist artery --pre arterial puncture Positive [facility] Base excessOrdered By: Conrado Morel on 05-12-2023 Base excess Calc (BldV) [Moles/Vol] 6 mmol/L -2-2 [facility] Basophil percentageOrdered B y: Iman White on 05-12-2023 Basophil percentage 27.0 umol/L 11-32 [facility] Basophil percentageOrdered B y: Conrado Morel on 05-12-2023 Basophil percentage 32 mmol/L [facility] Basophils/100 WBC (Bld) 98 % 95-99 [facility] Hemoglobin in reticulocytes (mass per reticulocyte)Ordered By: Conrado Morel on 05-12-2023 Hemoglobin (Reticulocytes) [Entitic mass] 31.7 pg 30-35 [facility] Immature platelet fractionOr dered By: Conrado Morel on 05-12-2023 Platelets reticulated/100 platelets Auto (Bld) 10.0 % 1.0-7.9 [facility] Measurement, pHOrdered By: Viola Morel on 05-12-2023 pH (Unsp spec) 7.42 [pH] 7.35-7.45 [facility] No Panel InformationOrdered By: Conrado Morel on 05-12-2023 8.50 % 3.00-15.90 [facility] ART [facility] R Radial [facility] NIV [facility] BiPAP [facility] 30.0 [facility] 16/8 14 30% [facility] 47.3 mmHg 35-45 [facility] 112 mmHG 75-100 [facility] 30.7 mmol/L 22-26 [facility] Reticulocytes Auto (Bld) [#/ Vol]Ordered By: Conrado Morel on 05-12-2023 Reticulocytes/100 RBC (Bld) 1.44 % 0.5-1.5 [facility] Bacteria identified Cx Nom ( U)Ordered By: Conrado Morel on 05-10-2023 Culture, urine Escherichia coli [facility] Basophil percentageOrdered B y: Conrado Morel on 05-10-2023 Basophil percentage 3.0 mmol/L 0.4-2.[address] [facility] No Panel InformationOrdered By: Barry Sheehan on 05-10-2023 Negative Negative [facility] No Panel InformationOrdered By: Conrado Morel on 05-10-2023 No growth in 5 days. [facility] Serum or plasma thyroid stim ulating hormone (TSH) measurement (units/volume)Ordered By: Conrado Fraser on 05-10-2023 TSH Qn 0.89 uIU/mL 0.358-3.74 [facility] Absolute lymphocyte countOrd ered By: Trish Arevalo on 05-09-2023 Lymphocytes Auto (Unsp spec) [#/Vol] 0.35 10*3/uL 0.83-4.51 [facility] Automated lymphocyte count a s percentage of total leukocytesOrdered By: Trish Arevalo on 05-09-2023 Lymphocytes/100 WBC Auto (Unsp spec) 2.7 % 19-41 [facility] Basophil percentageOrdered B y: Trish Arevalo on 05-09-2023 Basophil percentage 50-100 SEEN /hpf 0-5 [facility] Basophils/100 WBC (Bld) 0.5 % 0-1 [facility] Bilirubin [Mass/Vol] 1.00 mg/dL 0.20-1.00 [facility] Comment on above: For patients on eltr ombopag therapy, use of Dimension [place] TBIL is not recommended. Chloride [Moles/Vol] 92 mmol/L 98-107 [facility] Eosinophils/100 WBC (Bld) 0.0 % 0-5 [facility] Glucose [Mass/Vol] 209 mg/dL 74-106 [facility] Comment on above: Glucose result great er than or equal to 200 mg/dLsuggests DIABETES MELLITUS per A.D.A. criteria. Hemoglobin (Bld) [Mass/Vol] 11.2 g/dL 13.0-16.5 [facility] Monocytes/100 WBC (Bld) 3.2 % 0-10 [facility] Neutrophils (Bld) [#/Vol] 12.0 10*3/uL 2.0-7.7 [facility] Neutrophils/100 WBC (Bld) 92.8 % 47-70 [facility] Potassium [Moles/Vol] 4.0 mmol/L 3.5-5.1 [facility] Comment on above: Slight Hemolysis, Re sult may be falsely increased. Protein [Mass/Vol] 5.4 g/dL 6.4-8.2 [facility] Sodium [Moles/Vol] 137 mmol/L 136-145 [facility] WBC (Bld) [#/Vol] 13.0 10*3/uL 4.4-11.[address] [facility] Bilirubin Test strip Ql (U)O rdered By: Trish Arevalo on 05-09-2023 Bilirubin Ql (U) Negative Negative [facility] Blood platelet adequacy dete ction by light microscopyOrdered By: Trish Arevalo on 05-09-2023 Platelets LM Ql (Bld) ADEQUATE ADEQ [facility] Determination of erythrocyte mean corpuscular volume (MCV)Ordered By: Trish Arevalo on 05-09-2023 MCV (RBC) [Entitic vol] 104.0 fL 80-94 [facility] Direct bilirubinOrdered By: Trish Arevalo on 05-09-2023 Bilirubin.direct [Mass/Vol] 0.48 mg/dL 0.00-0.30 [facility] Erythrocyte distribution wid th ratioOrdered By: Trish Arevalo on 05-09-2023 Erythrocyte distribution width (RBC) [Ratio] 15.7 % 11.6-14.6 [facility] Erythrocyte distribution wid th standard deviationOrdered By: Trish Arevalo on 05-09-2023 Erythrocyte distribution width (RBC) [Entitic vol] 59.7 fL 35.1-43.9 [facility] Hematocrit Auto (Bld) [Volum e fraction]Ordered By: Trish Arevalo on 05-09-2023 Hematocrit (Bld) [Volume fraction] 33.8 % 40-54 [facility] Immature granulocytes/100 WB C Auto (Bld)Ordered By: rTish Arevalo on 05-09-2023 Immature granulocytes/100 WBC (Bld) 0.800 % 0.0-0.9 [facility] Comment on above: IG% - Immature Granu locytes (promyelocytes, myelocytes and metamyelocytes) > 1% indicates that a LEFT SHIFT is Present. Ketones Test strip Ql (U)Ord ered By: Trish Arevalo on 05-09-2023 Ketones Ql (U) Negative Negative [facility] Laboratory - Chemistry and C hemistry - challengeOrdered By: Trish Arevalo on 05-09-2023 ALP [Catalytic activity/Vol] 212 U/L 45-117 [facility] ALT [Catalytic activity/Vol] 56 U/L 16-61 [facility] CO2 [Moles/Vol] 36.0 mmol/L 21.0-32.0 [facility] Globulin (S) [Mass/Vol] 3.9 g/dL 2.2-4.2 [facility] Lipase [Catalytic activity/Vol] U/L 13-75 [facility] Comment on above: Please note:LIPASE r evised reference range effective 22. New Lipase methodology. Expected to produce lower values than the previous assay method. NEW Reference Range: 13 - 75 U/L Urea nitrogen/Creatinine [Mass ratio] 6.0 mg/mg 10-20 [facility] Laboratory - CoagulationOrde red By: Trish Arevalo on 05-09-2023 INR Coag (Bld) [Relative time] 2.0 {INR} [facility] PT Coag (PPP) [Time] 22.6 s 11.7-14.9 [facility] Laboratory - Hematology and Cell countsOrdered By: Trish Arevalo on 05-09-2023 MCH (RBC) [Entitic mass] 34.5 pg 27.0-32.0 [facility] MCHC (RBC) [Mass/Vol] 33.1 g/dL 32-36 [facility] Nucleated RBC/100 WBC (Bld) [Ratio] 0 % 0-5 [facility] [facility] Platelet mean volume (Bld) [Entitic vol] 12.3 fL 6.2-12.0 [facility] Platelets (Bld) [#/Vol] 133 10*3/uL 150-450 [facility] Macrocytes detectionOrdered By: Trish Arevalo on 05-09-2023 Macrocytes Ql (Bld) 1+ [facility] Mucus LM Ql (Urine sed)Order ed By: Trish Arevalo on 05-09-2023 Mucus Ql (Urine sed) 0 SEEN /hpf [facility] Nitrite Test strip Ql (U)Ord ered By: Trish Arevalo on 05-09-2023 Nitrite Ql (U) Negative Negative [facility] No Panel InformationOrdered By: Trish Arevalo on 05-09-2023 Urine RBC 0-5 SEEN /hpf 0-5 [facility] 0-5 SEEN /hpf 0-5 [facility] 22.6 SECONDS 11.7-14.9 [facility] 2.0 [facility] Estimated Creatinine Clearance Calc 55.78 ml/min [facility] Estimated GFR (MDRD) Amer 61 mL/min >60 [facility] Comment on above: GFR Calc Estimated GFR (MDRD) Non-Af Amer 51 mL/min >60 [facility] Comment on above: Non- GFR Calc < 10 U/L 13-75 [facility] No Panel InformationOrdered By: Conrado Fraser on 05-09-2023 [facility] Negative < 50 ng/mL [facility] Positive < 300 ng/mL [facility] Protein Test strip Ql (U)Ord ered By: Trish Arevalo on 05-09-2023 Protein Ql (U) 100 mg/dl Negative [facility] RBC Auto (Bld) [#/Vol]Ordere d By: Trish Arevalo on 05-09-2023 RBC (Bld) [#/Vol] 3.25 10*6/uL 4.6-6.[address] [facility] Serum or plasma calcium luciana urement (mass/volume)Ordered By: Trish Arevalo on 05-09-2023 Calcium [Mass/Vol] 8.0 mg/dL 8.5-10.1 [facility] Serum or plasma creatinine m easurement (mass/volume)Ordered By: Trish Arevalo on 05-09-2023 Creatinine [Mass/Vol] 1.50 mg/dL 0.70-1.30 [facility] Comment on above: The validity of the calculated GFR & GFRAA in patients over 70 years has not been determined. Clinical correlation is essential. Serum or plasma transthyreti n measurement (mass/volume)Ordered By: Conrado Fraser on 05-09-2023 Prealbumin [Mass/Vol] 8.0 mg/dL 20.0-40.0 [facility] Serum or plasma urea nitroge n measurement (mass/volume)Ordered By: Trish Arevalo on 05-09-2023 Urea nitrogen [Mass/Vol] 9 mg/dL 7-18 [facility] Squamous epithelial cells de tection in urine sediment by light microscopyOrdered By: Trish Arevalo on 05-09-2023 Epithelial cells.squamous LM Ql (Urine sed) 0 SEEN /hpf 0-5 [facility] Thin prep Papanicolaou smear with manual screeningOrdered By: Trish Arevalo on 05-09-2023 Thin prep Papanicolaou smear with manual screening 1.5 g/dL 3.2-5.0 [facility] Thin prep Papanicolaou smear with manual screening 220 U/L 15-37 [facility] Comment on above: Slight Hemolysis, Re sult may be falsely increased. Thin prep Papanicolaou smear with manual screening 9 5-15 [facility] Urine blood detectionOrdered By: Trish Arevalo on 05-09-2023 RBC Ql (U) 250 /ul Negative [facility] Urine clarityOrdered By: Lala Arevalo on 05-09-2023 Clarity (U) Sl. Cloudy Clear [facility] Urine color determinationOrd ered By: Trish Arevalo on 05-09-2023 Color (U) Yellow Yellow [facility] Urine glucose detectionOrder ed By: Trish Arevalo on 05-09-2023 Glucose Ql (U) Normal mg/dl Normal [facility] Urine leukocyte esterase det ection by dipstickOrdered By: Trish Arevalo on 05-09-2023 Leukocyte esterase Test strip Ql (U) 500 /ul Negative [facility] Urine pHOrdered By: Trish hay on 05-09-2023 pH (U) 8.0 [pH] 5.0 - 8.0 [facility] Urine phencyclidine (PCP) de tectionOrdered By: Conrado Fraser on 05-09-2023 Phencyclidine Ql (U) Negative < 25 ng/mL [facility] Urine sediment bacteria coun t by microscopy (number/high power field)Ordered By: Trish Arevalo on 05-09-2023 Bacteria LM.HPF (Urine sed) [#/Area] 1 /[HPF] None Seen [facility] Urine specific gravity measu rementOrdered By: Trish Arevalo on 05-09-2023 Specific gravity (U) [Rel density] 1.015 1.002-1.030 [facility] Urine urobilinogen measureme ntOrdered By: Trish Arevalo on 05-09-2023 Urobilinogen Ql (U) Normal mg/dl Normal [facility] Thin prep Papanicolaou smear with manual screeningOrdered By: Ashley Alvarado on 04-27-2023 Thin prep Papanicolaou smear with manual screening 104 mg/dL 74-106 [facility] Comment on above: MANAGEMENT OF PATIEN T CARE PER NURSING PROTOCOL Basophil percentageOrdered B y: Ashley Alvarado on 04-24-2023 Basophil percentage 73 mg/dL <[address] [facility] Basophil percentage 122 mg/dL <[address] [facility] Cholesterol [Mass/Vol] 73 mg/dL <200 [facility] Comment on above: <200 mg/dL Desirable 200-240 mg/dL Borderline >240 mg/dL High Risk Triglyceride [Mass/Vol] 122 mg/dL <199 [facility] Comment on above: The drugs N-Acetylcy steine and Metamizole may falsely depress this assay.Serum Triglycerides Reference Interval Normal <150 mg/dL Borderline high 150 - 199 mg/dL High 200 - 499 mg/dL Very High > or = 500 mg/dL Laboratory - Chemistry and C hemistry - challengeOrdered By: Ashley Alvarado on 04-24-2023 Cholesterol in HDL [Mass/Vol] 23 mg/dL >40 [facility] Comment on above: The drugs N-Acetylcy steine and Metamizole may falsely depress this assay. Reference Range HDL <40 mg/dL Low HDL Cholesterol HDL >or= 60 mg/dL High HDL Cholesterol Cholesterol in LDL [Mass/Vol] 26 mg/dL 0-130 [facility] No Panel InformationOrdered By: Ashley Alvarado on 04-24-2023 VLDL Cholesterol 24 mg/dL 5-40 [facility] 23 mg/dL >40 [facility] 26 mg/dL 0-130 [facility] 24 mg/dL 5-40 [facility] Basophil percentageOrdered B y: Conrado Fraser on 04-22-2023 Basophil percentage 0 SEEN /hpf 0-5 [facility] Bilirubin Test strip Ql (U)O rdered By: Conrado Fraser on 04-22-2023 Bilirubin Ql (U) Negative Negative [facility] Ketones Test strip Ql (U)Ord ered By: Conrado Fraser on 04-22-2023 Ketones Ql (U) Negative Negative [facility] Mucus LM Ql (Urine sed)Order ed By: Conrado Fraser on 04-22-2023 Mucus Ql (Urine sed) 0 SEEN /hpf [facility] Nitrite Test strip Ql (U)Ord ered By: Conrado Fraser on 04-22-2023 Nitrite Ql (U) Negative Negative [facility] No Panel InformationOrdered By: Conrado Fraser on 04-22-2023 Urine RBC 0-5 SEEN /hpf 0-5 [facility] 0-5 SEEN /hpf 0-5 [facility] Protein Test strip Ql (U)Ord ered By: Conrado Fraser on 04-22-2023 Protein Ql (U) 15 mg/dl Negative [facility] Squamous epithelial cells de tection in urine sediment by light microscopyOrdered By: Conrado Fraser on 04-22-2023 Epithelial cells.squamous LM Ql (Urine sed) 5-10 SEEN /hpf 0-5 [facility] Urine blood detectionOrdered By: Conrado Fraser on 04-22-2023 RBC Ql (U) Negative Negative [facility] Urine clarityOrdered By: Beck Fraser on 04-22-2023 Clarity (U) Clear Clear [facility] Urine color determinationOrd ered By: Conrado Fraser on 04-22-2023 Color (U) Yellow Yellow [facility] Urine glucose detectionOrder ed By: Conrado Fraser on 04-22-2023 Glucose Ql (U) 100 mg/dl Normal [facility] Urine leukocyte esterase det ection by dipstickOrdered By: Conrado Fraser on 04-22-2023 Leukocyte esterase Test strip Ql (U) 25 /ul Negative [facility] Urine pHOrdered By: Conrado arredondo on 04-22-2023 pH (U) 8.0 [pH] 5.0 - 8.0 [facility] Urine sediment bacteria coun t by microscopy (number/high power field)Ordered By: Conrado Fraser on 04-22-2023 Bacteria LM.HPF (Urine sed) [#/Area] 0 /[HPF] None Seen [facility] Urine specific gravity measu rementOrdered By: Conrado Fraser on 04-22-2023 Specific gravity (U) [Rel density] 1.015 1.002-1.030 [facility] Urine urobilinogen measureme ntOrdered By: Conrado Fraser on 04-22-2023 Urobilinogen Ql (U) Normal mg/dl Normal [facility] Basophil percentageOrdered B y: Lucas Frausto on 04-21-2023 Basophil percentage 106 mg/dL 74-[address] [facility] Basophil percentage 4.1 g/dL 6.4-8.[address] [facility] Basophil percentage 1.00 mg/dL 0.20-1.[address] [facility] Basophil percentage 143 mmol/L 136-[address] [facility] Basophil percentage 3.6 mmol/L 3.5-5.[address] [facility] Basophil percentage 106 mmol/L 98-[address] [facility] Bilirubin [Mass/Vol] 1.00 mg/dL 0.20-1.00 [facility] Comment on above: For patients on eltr ombopag therapy, use of Dimension [place] TBIL is not recommended. Chloride [Moles/Vol] 106 mmol/L 98-107 [facility] Glucose [Mass/Vol] 106 mg/dL 74-106 [facility] Comment on above: Fasting Glucose resu lt from 100 to 125 mg/dL suggests IMPAIRED HOMEOSTASIS per A.D.A. criteria. Potassium [Moles/Vol] 3.6 mmol/L 3.5-5.1 [facility] Protein [Mass/Vol] 4.1 g/dL 6.4-8.2 [facility] Sodium [Moles/Vol] 143 mmol/L 136-145 [facility] Laboratory - Chemistry and C hemistry - challengeOrdered By: Lucas Frausto on 04-21-2023 Albumin/Globulin [Mass ratio] 0.6 {ratio} 0.9-2.4 [facility] ALP [Catalytic activity/Vol] 158 U/L [facility] ALT [Catalytic activity/Vol] 70 U/L [facility] CO2 [Moles/Vol] 32.0 mmol/L 21.0-32.0 [facility] Globulin (S) [Mass/Vol] 2.5 g/dL 2.2-4.2 [facility] Urea nitrogen/Creatinine [Mass ratio] 5.2 mg/mg 10- [facility] No Panel InformationOrdered By: Lucas Frausto on 04-21-2023 Estimated Creatinine Clearance Calc 61.74 ml/min [facility] Estimated GFR (MDRD) Amer 83 mL/min >60 [facility] Comment on above: GFR Calc Estimated GFR (MDRD) Non-Af Amer 69 mL/min >60 [facility] Comment on above: Non- GFR Calc Hepatitis A IgM Antibody Negative Negative [facility] Hepatitis B Core IgM Antibody Negative Negative [facility] Hepatitis C Antibody (EIA) Non-Reactive Non Reactive [facility] Hepatitis C Antibody Comment Comment . [facility] Comment on above: Not infected with HC V unless early or acute infection issuspected (which may be delayed in an immunocompromisedindividual), or other evidence exists to indicate HCVinfection.Performed at: [facility] [id number] Director: Agustin Arredondo PhD, Phone: [phone] 69 mL/min >60 [facility] 83 mL/min >60 [facility] 61.74 ml/min [facility] 5.2 RATIO - [facility] 2.5 g/dL 2.2-4.2 [facility] 0.6 RATIO 0.9-2.4 [facility] 158 U/L [facility] 70 U/L [facility] 32.0 mmol/L 21.0-32.0 [facility] Negative Negative [facility] Non-Reactive Non Reactive [facility] Comment . [facility] Serum or plasma calcium luciana urement (mass/volume)Ordered By: Lucas Frausto on 04-21-2023 Calcium [Mass/Vol] 7.3 mg/dL 8.5-10.1 [facility] Serum or plasma creatinine m easurement (mass/volume)Ordered By: Lucas Frausto on 04-21-2023 Creatinine [Mass/Vol] 1.15 mg/dL 0.70-1.30 [facility] Comment on above: The validity of the calculated GFR & GFRAA in patients over 70 years has not been determined. Clinical correlation is essential. Serum or plasma hepatitis B virus surface antigen detection by immunoassayOrdered By: Lucas Frausto on 04-21-2023 HBV surface Ag IA Ql Negative Negative [facility] Serum or plasma urea nitroge n measurement (mass/volume)Ordered By: Lucas Frausto on 04-21-2023 Urea nitrogen [Mass/Vol] 6 mg/dL 7-18 [facility] Thin prep Papanicolaou smear with manual screeningOrdered By: Lucas Frausto on 04-21-2023 Thin prep Papanicolaou smear with manual screening 1.6 g/dL 3.2-5.0 [facility] Thin prep Papanicolaou smear with manual screening 221 U/L 15-37 [facility] Thin prep Papanicolaou smear with manual screening 5 5-15 [facility] Absolute lymphocyte countOrd ered By: Chris Call on 04-20-2023 Lymphocytes Auto (Unsp spec) [#/Vol] 0.90 10*3/uL 0.83-4.51 [facility] Basophil percentageOrdered B y: Chris Call on 04-20-2023 Basophil percentage 11.8 g/dL 13.0-16.[address] [facility] Basophils (Bld) [#/Vol] 8.0 10*3/uL 4.4-11.0 [facility] Basophils (Bld) [#/Vol] 6.1 10*3/uL 2.0-7.7 [facility] Basophils/100 WBC (Bld) 0.9 % 0-1 [facility] Basophils/100 WBC (Bld) 76.5 % 47-70 [facility] Basophils/100 WBC (Bld) 11.2 % 19-41 [facility] Basophils/100 WBC (Bld) 10.2 % 0-10 [facility] Basophils/100 WBC (Bld) 0.5 % 0-5 [facility] Eosinophils/100 WBC (Bld) 0.5 % 0-5 [facility] Hemoglobin (Bld) [Mass/Vol] 11.8 g/dL 13.0-16.5 [facility] Lymphocytes/100 WBC (Bld) 11.2 % 19-41 [facility] Monocytes/100 WBC (Bld) 10.2 % 0-10 [facility] Neutrophils (Bld) [#/Vol] 6.1 10*3/uL 2.0-7.7 [facility] Neutrophils/100 WBC (Bld) 76.5 % 47-70 [facility] WBC (Bld) [#/Vol] 8.0 10*3/uL 4.4-11.0 [facility] Determination of erythrocyte mean corpuscular volume (MCV)Ordered By: Chris Call on 04-20-2023 MCV (RBC) [Entitic vol] 102.0 fL 80-94 [facility] Direct bilirubinOrdered By: Chris Call on 04-20-2023 Bilirubin.direct [Mass/Vol] 0.42 mg/dL 0.00-0.30 [facility] Erythrocyte distribution wid th ratioOrdered By: Chris Call on 04-20-2023 Erythrocyte distribution width (RBC) [Ratio] 15.4 % 11.6-14.6 [facility] Hematocrit Auto (Bld) [Volum e fraction]Ordered By: Chris Call on 04-20-2023 Hematocrit (Bld) [Volume fraction] 35.9 % 40-54 [facility] Laboratory - Chemistry and C hemistry - challengeOrdered By: Chris Call on 04-20-2023 Lipase [Catalytic activity/Vol] U/L 13-75 [facility] Comment on above: Please note:LIPASE r evised reference range effective 22. New Lipase methodology. Expected to produce lower values than the previous assay method. NEW Reference Range: 13 - 75 U/L Laboratory - Drug toxicology Ordered By: Chris Call on 04-20-2023 Amphetamines Ql (U) Negative <1000 ng/mL [facility] Benzodiazepines Ql (U) Negative < 200 ng/mL [facility] Cannabinoids Screen Ql (U) Negative < 50 ng/mL [facility] Cocaine Ql (U) Negative < 300 ng/mL [facility] Opiates Ql (U) Negative < 300 ng/mL [facility] Laboratory - Hematology and Cell countsOrdered By: Chris Call on 04-20-2023 Erythrocyte distribution width (RBC) [Entitic vol] 57.8 fL 35.1-43.9 [facility] Immature granulocytes/100 WBC (Bld) 0.700 % 0.0-0.9 [facility] Comment on above: IG% - Immature Granu locytes (promyelocytes, myelocytes and metamyelocytes) > 1% indicates that a LEFT SHIFT is Present. MCH (RBC) [Entitic mass] 33.5 pg 27.0-32.0 [facility] MCHC (RBC) [Mass/Vol] 32.9 g/dL - [facility] Platelet mean volume (Bld) [Entitic vol] 10.8 fL 6.2-12.0 [facility] No Panel InformationOrdered By: Chris Call on 04-20-2023 Ethyl Alcohol Level 56.0 mg/dL [facility] Comment on above: The serum:whole bloo d ethanol ratio is approximately 1.14and varies slightly with hematocrit. Medical Alcohol reference interval and critical value innon-tolerant individuals; 50 - 100 Impairment 100 Intoxication 100 - 250 Severe Poisoning 250 - 400 Deep/possible fatal comaRESULT(S) PREVIOUSLY REPORTED ON MANUAL REQUISITION DURINGDOWNTIME. 33.5 pg 27.0-32.0 [facility] 32.9 g/dL 32-36 [facility] 57.8 fl 35.1-43.9 [facility] 10.8 fl 6.2-12.0 [facility] 0.700 % 0.0-0.9 [facility] < 10 U/L 13-75 [facility] 56.0 mg/dL [facility] MDMA (Ecstasy) Screen Negative < 500 ng/mL [facility] Urine Barbiturates Screen Negative < 200 ng/mL [facility] Urine Drug Screen Comment [facility] Comment on above: CONFIRMATORY TESTING FOR ALL POSITIVE URINE DRUG SCREENRESULTS WILL ONLY BE SENT OUT UPON PHYSICIAN ORDER. VISTA Urine Drug Screen methods provide only preliminaryanalytical test results. A more specific alternate chemicalmethod must be used in order to obtain a confirmedanalytical result. Gas chromatography/mass spectrometery(GC/MS) is the preferred confirmatory method. Clinicalconsideration and professional judgement should be appliedto any drug of abuse test result, particularly whenpreliminary positive results are used. URINE TCA TESTING MUST BE ORDERED SEPARATELY. USE TESTMNEMONIC: [facility] Urine Methadone Screen Negative < 300 ng/mL [facility] Negative < 50 ng/mL [facility] Platelets bldOrdered By: Fox Call on 04-20-2023 Platelets (Bld) [#/Vol] 132 10*3/uL 150-450 [facility] RBC Auto (Bld) [#/Vol]Ordere d By: Chris Call on 04-20-2023 RBC (Bld) [#/Vol] 3.52 10*6/uL 4.6-6.[address] [facility] Urine phencyclidine (PCP) de tectionOrdered By: Chris Call on 04-20-2023 Phencyclidine Ql (U) Negative < 25 ng/mL [facility] GGTon 04-02-2023 Gamma GT 280 U/L High 15-85 [facility] ([place]) Comment on above: Performed By: #### L AC, RADHA, W, CBC, GFR, CMP, TROPHS, ANEU #### [place] [address] .GFRon 04-01-2023 GFR 77 ml/min/1.73sqm Normal [facility] ([place]) Comment on above: Result Comment: GFR Population mean for , [...] 15 mL/min/1.73 square meters Performed By: #### RADHA COSTA MDW, CBC, GFR, CMP, TROPHS, ANEU #### [address] [address] GFR Non- 64 ml/min/1.73sqm Normal [facility] ([place]) Comment on above: Result Comment: GFR Population mean for , [...] 15 mL/min/1.73 square meters Performed By: #### RADHA COSTA MDW, CBC, GFR, CMP, TROPHS, ANEU #### [place] [address] AMYon 04-01-2023 Amylase [Catalytic activity/Vol] 66 U/L Normal 25-115 [facility] ([place] Comment on above: Performed By: #### RADHA COSTA MDW, CBC, GFR, CMP, TROPHS, ANEU #### [place] [address] CMPon 04-01-2023 Albumin Level 2.3 G/dL Low 3.4-4.8 [facility] ([place] Comment on above: Performed By: #### RADHA COSTA MDW, CBC, GFR, CMP, TROPHS, ANEU #### [place] [address] Albumin/Globulin [Mass ratio] 0.7 {ratio} Low 1.1-2.5 [facility] ([place]) Comment on above: Performed By: #### L RADHA SARGENT MDW, CBC, GFR, CMP, TROPHS, ANEU #### [address] [address] ALP [Catalytic activity/Vol] 161 U/L High 40-135 [facility] ([place]) Comment on above: Performed By: #### L RADHA SARGENT MDW, CBC, GFR, CMP, TROPHS, ANEU #### [address] [address] ALT [Catalytic activity/Vol] 47 U/L Normal 16-63 [facility] ([place]) Comment on above: Performed By: #### L RADHA SARGENT MDW, CBC, GFR, CMP, TROPHS, ANEU #### [address] [address] AST [Catalytic activity/Vol] 56 U/L High 10-40 [facility] ([place]) Comment on above: Performed By: #### L RADHA SARGENT MDW, CBC, GFR, CMP, TROPHS, ANEU #### [address] [address] Bili Total 0.5 mg/dL Normal 0.2-1.0 [facility] ([place]) Comment on above: Result Comment: Use of this assay is not recommended for patients undergoing treatment with eltrombopag due to the potential for falsely elevated results. Performed By: #### L RADHA SARGENT MDW, CBC, GFR, CMP, TROPHS, ANEU #### [address] [address] BUN/Creatinine Ratio 6 ratio Low 7-27 [facility] ([place]) Comment on above: Performed By: #### L RADHA SARGENT MDW, CBC, GFR, CMP, TROPHS, ANEU #### [address] [address] Calcium [Mass/Vol] 8.2 mg/dL Low 8.4-10.2 [facility] ([place]) Comment on above: Performed By: #### L RADHA SARGENT MDW, CBC, GFR, CMP, TROPHS, ANEU #### [address] [address] Chloride [Moles/Vol] 105 mmol/L Normal 98-107 [facility] ([place]) Comment on above: Performed By: #### L RADHA SARGENT MDW, CBC, GFR, CMP, TROPHS, ANEU #### [address] [address] CO2 [Moles/Vol] 28 mmol/L Normal 23-31 [facility] ([place]) Comment on above: Performed By: #### L RADHA SARGENT MDW, CBC, GFR, CMP, TROPHS, ANEU #### [address] [address] Creatinine [Mass/Vol] 1.17 mg/dL Normal 0.70-1.30 [facility] ([place]) Comment on above: Performed By: #### L RADHA SARGENT MDW, CBC, GFR, CMP, TROPHS, ANEU #### [address] [address] Electrolyte Balance 5.0 mEq/L Normal 4.0-15.0 [facility] ([place]) Comment on above: Performed By: #### L RADHA SARGENT MDW, CBC, GFR, CMP, TROPHS, ANEU #### [address] [address] Globulin 3.1 G/dL Normal [facility] ([place]) Comment on above: Performed By: #### L RADHA SARGENT MDW, CBC, GFR, CMP, TROPHS, ANEU #### [address] [address] Glucose [Mass/Vol] 211 mg/dL High 80-115 [facility] ([place]) Comment on above: Performed By: #### L RADHA SARGENT MDW, CBC, GFR, CMP, TROPHS, ANEU #### [address] [address] Potassium [Moles/Vol] 5.4 mmol/L High 3.5-5.1 [facility] ([place]) Comment on above: Performed By: #### L RADHA SARGENT MDW, CBC, GFR, CMP, TROPHS, ANEU #### [place] [id number] Sodium [Moles/Vol] 138 mmol/L Normal 136-145 [facility] ([place]) Comment on above: Performed By: #### L RADHA SARGENT MDW, CBC, GFR, CMP, TROPHS, ANEU #### [place] [address] Total Protein 5.4 G/dL Low 6.4-8.2 [facility] ([place]) Comment on above: Performed By: #### RADHA COSTA MDW, CBC, GFR, CMP, TROPHS, ANEU #### [place] [id number] Urea nitrogen [Mass/Vol] 7 mg/dL Normal 7-18 [facility] ([place]) Comment on above: Performed By: #### RADHA COSTA MDW, CBC, GFR, CMP, TROPHS, ANEU #### [place] [id number] FEon 04-01-2023 Iron [Mass/Vol] 79 ug/dL Normal 65-175 [facility] ([place]) Comment on above: Performed By: #### L RADHA SARGENT MDW, CBC, GFR, CMP, TROPHS, ANEU #### [place] [address] IBCon 04-01-2023 TIBC 118 mcg/dL Low 250-450 [facility] ([place] Comment on above: Performed By: #### RADHA COSTA MDW, CBC, GFR, CMP, TROPHS, ANEU #### [place] [id number] LIPon 04-01-2023 Lipase Level <10 Low 16-77 [facility] ([place] Comment on above: Performed By: #### RADHA COSTA MDW, CBC, GFR, CMP, TROPHS, ANEU #### [place] [address] MGon 04-01-2023 Magnesium [Mass/Vol] 1.9 mg/dL Normal 1.8-2.4 [facility] ([place]) Comment on above: Performed By: #### L RADHA SARGENT MDW, CBC, GFR, CMP, TROPHS, ANEU #### [address] [address] TSHon 04-01-2023 TSH Qn 1.36 m[IU]/L Normal 0.36-3.74 [facility] ([place] Comment on above: Performed By: #### RADHA COSTA MDW, CBC, GFR, CMP, TROPHS, ANEU #### [address] [address] VIDHon 04-01-2023 Vit. D 25-Hydroxy 41.5 ng/mL Normal [facility] ([place]) Comment on above: Result Comment: Inte rpretive Values Based on Total 25(OH) Vitamin D: Deficient <20 ng/mL Insufficient 20 - <30 ng/mL Sufficient 30-100 ng/mL Performed By: #### L RADHA SARGENT MDW, CBC, GFR, CMP, TROPHS, ANEU #### [address] [address] .Auto Diffon 03-19-2023 Basophil, Absolute 0.0 10 3/mcL Normal 0.0-0.3 [facility] ([place]) Comment on above: Performed By: #### RADHA COSTA MDW, CBC, GFR, CMP, TROPHS, ANEU #### [address] [address] Basophils/100 WBC (Bld) 0.8 % Normal 0.0-2.5 [facility] ([place]) Comment on above: Performed By: #### RADHA COSTA MDW, CBC, GFR, CMP, TROPHS, ANEU #### [address] [address] Eosinophil, Absolute 0.1 10 3/mcL Normal 0.0-0.7 [facility] ([place]) Comment on above: Performed By: #### L RADHA SARGENT MDW, CBC, GFR, CMP, TROPHS, ANEU #### [address] [address] Eosinophils/100 WBC (Bld) 2.3 % Normal 0.0-6.0 [facility] ([place] Comment on above: Performed By: #### L RADHA SARGENT MDW, CBC, GFR, CMP, TROPHS, ANEU #### [address] [address] Lymphocyte, Absolute 1.1 10 3/mcL Normal 0.9-4.3 [facility] ([place]) Comment on above: Performed By: #### L RADHA SARGENT MDW, CBC, GFR, CMP, TROPHS, ANEU #### [address] [address] Lymphocytes/100 WBC (Bld) 18.7 % Low 20.0-40.0 [facility] ([place] Comment on above: Performed By: #### L RADHA SARGENT MDW, CBC, GFR, CMP, TROPHS, ANEU #### [address] [address] Monocyte, Absolute 0.7 10 3/mcL Normal 0.1-1.4 [facility] ([place] Comment on above: Performed By: #### L RADHA SARGENT MDW, CBC, GFR, CMP, TROPHS, ANEU #### [address] [address] Monocytes/100 WBC (Bld) 13.0 % Normal 2.0-13.0 [facility] ([place]) Comment on above: Performed By: #### L RADHA SARGENT MDW, CBC, GFR, CMP, TROPHS, ANEU #### [address] [address] Neutrophils/100 WBC (Bld) 65.2 % Normal 50.0-75.0 [facility] ([place] Comment on above: Performed By: #### L RADHA SARGENT MDW, CBC, GFR, CMP, TROPHS, ANEU #### [address] [address] .GFRon 03-19-2023 GFR >60 Normal [facility] ([place]) Comment on above: Result Comment: GFR Population mean for , [...] 15 mL/min/1.73 square meters Performed By: #### L RADHA SARGENT MDW, CBC, GFR, CMP, TROPHS, ANEU #### [address] [address] GFR Non- >60 Normal [facility] ([place] Comment on above: Result Comment: GFR Population mean for , [...] 15 mL/min/1.73 square meters Performed By: #### L RADHA SARGENT MDW, CBC, GFR, CMP, TROPHS, ANEU #### [address] [address] .NEUABSon 03-19-2023 Neutrophil, Absolute 3.7 10 3/mcL Normal 2.3-8.1 [facility] ([place]) Comment on above: Performed By: #### L RADHA SARGENT MDW, CBC, GFR, CMP, TROPHS, ANEU #### [address] [address] BMPon 03-19-2023 BUN/Creatinine Ratio 10.2 ratio Normal 10.0-22.0 [facility] ([place] Comment on above: Performed By: #### L RADHA SARGENT MDW, CBC, GFR, CMP, TROPHS, ANEU #### [address] [address] Calcium [Mass/Vol] 7.9 mg/dL Low 8.7-10.4 [facility] ([place]) Comment on above: Performed By: #### L RADHA SAREGNT MDW, CBC, GFR, CMP, TROPHS, ANEU #### [address] [address] Chloride [Moles/Vol] 111 mmol/L High 98-110 [facility] ([place]) Comment on above: Performed By: #### L RADHA SARGENT MDW, CBC, GFR, CMP, TROPHS, ANEU #### [address] [address] CO2 [Moles/Vol] 21 mmol/L Low 22-32 [facility] ([place] Comment on above: Performed By: #### L RADHA SARGENT MDW, CBC, GFR, CMP, TROPHS, ANEU #### [address] [address] Creatinine [Mass/Vol] 1.08 mg/dL Normal 0.60-1.40 [facility] ([place]) Comment on above: Performed By: #### L RADHA SARGENT MDW, CBC, GFR, CMP, TROPHS, ANEU #### [address] [address] Electrolyte Balance 7.0 mEq/L Normal 4.0-15.0 [facility] ([place]) Comment on above: Performed By: #### L RADHA SARGENT MDW, CBC, GFR, CMP, TROPHS, ANEU #### [address] [address] Glucose [Mass/Vol] 74 mg/dL Low 82-115 [facility] ([place]) Comment on above: Performed By: #### L RADHA SARGENT MDW, CBC, GFR, CMP, TROPHS, ANEU #### [address] [address] Potassium [Moles/Vol] 4.6 mmol/L Normal 3.5-5.0 [facility] ([place]) Comment on above: Performed By: #### L RADHA SARGENT MDW, CBC, GFR, CMP, TROPHS, ANEU #### [place] [address] Sodium [Moles/Vol] 139 mmol/L Normal 136-145 [facility] ([place]) Comment on above: Performed By: #### L RADHA SARGENT MDW, CBC, GFR, CMP, TROPHS, ANEU #### [place] [address] Urea nitrogen [Mass/Vol] 11.0 mg/dL Normal 8.0-22.0 [facility] ([place] Comment on above: Performed By: #### L RADHA SARGENT MDW, CBC, GFR, CMP, TROPHS, ANEU #### [place] [address] CBCon 03-19-2023 Erythrocyte distribution width (RBC) [Ratio] 14.6 % Normal 11.5-15.5 [facility] ([place] Comment on above: Performed By: #### L RADHA SARGENT MDW, CBC, GFR, CMP, TROPHS, ANEU #### [place] [address] Hematocrit (Bld) [Volume fraction] 36.3 % Low 40.0-52.0 [facility] ([place] Comment on above: Performed By: #### RADHA COSTA MDW, CBC, GFR, CMP, TROPHS, ANEU #### [place] [id number] Hgb 12.2 G/dL Low 13.0-17.5 [facility] ([place] Comment on above: Performed By: #### L RADHA SARGENT MDW, CBC, GFR, CMP, TROPHS, ANEU #### [place] [id number] MCH (RBC) [Entitic mass] 34.5 pg High 27.0-33.0 [facility] ([place] Comment on above: Performed By: #### L RADHA SARGENT MDW, CBC, GFR, CMP, TROPHS, ANEU #### [place] [address] MCHC 33.6 G/dL Normal 32.0-36.0 [facility] ([place] Comment on above: Performed By: #### L BELLE, KEIKO GARCIA, CBC, GFR, CMP, TROPHS, ANEU #### [place] [address] MCV (RBC) [Entitic vol] 102.6 fL High 81.0-100.0 [facility] ([place]) Comment on above: Performed By: #### L RADHA SARGENT MDW, CBC, GFR, CMP, TROPHS, ANEU #### [place] [address] Platelet 165 10 3/mcL Normal 150-450 [facility] ([place] Comment on above: Performed By: #### L RADHA SARGETN MDW, CBC, GFR, CMP, TROPHS, ANEU #### [place] [address] Platelet mean volume (Bld) [Entitic vol] 8.8 fL Normal 6.4-10.5 [facility] ([place] Comment on above: Performed By: #### L RADHA SARGENT MDW, CBC, GFR, CMP, TROPHS, ANEU #### [place] [address] RBC 3.53 10 6/mcL Low 4.50-6.00 [facility] ([place] Comment on above: Performed By: #### L RADHA SARGENT MDW, CBC, GFR, CMP, TROPHS, ANEU #### [place] [address] WBC 5.7 10 3/mcL Normal 4.5-10.8 [facility] ([place] Comment on above: Performed By: #### L RADHA SARGENT MDW, CBC, GFR, CMP, TROPHS, ANEU #### [place] [address] LABORATORYOrdered By: Yessica Collazo on 03-19-2023 Blood Glucose Testing Reason Routine (03/19/23 11:18 AM) [facility] Work Phone: Glucose [Mass/Vol] 123 mg/dL High 82 - 115 mg/dL [facility] Work Phone: LABORATORYOrdered By: Esequiel Brown on 03-19-2023 Blood Glucose Testing Reason Routine (03/19/23 8:26 AM) [facility] Work Phone: Glucose [Mass/Vol] 122 mg/dL High 82 - 115 mg/dL [facility] Work Phone: LABORATORYOrdered By: Syd Aguayo on 03-19-2023 Glucose [Mass/Vol] 42 mg/dL Invalid Interpretation Code 82 - 115 mg/dL [facility] Work Phone: LABORATORYOrdered By: SYSTEM SYSTEM on 03-19-2023 Basophils (Bld) [#/Vol] 0.0 103/mcL Normal 0.0 - 0.3 10^3/mcL Workflow SS Basophils/100 WBC (Bld) 0.8 % Normal 0.0 - 2.5 % Workflow SS Calcium [Mass/Vol] 7.9 mg/dL Low 8.7 - 10. 4 mg/dL ADM SS Chloride [Moles/Vol] 111 mmol/L High 98 - 11 0 mEq/L ADM SS CO2 [Moles/Vol] 21 mmol/L Low 22 - 32 mEq/L ADM SS Creatinine [Mass/Vol] 1.08 mg/dL Normal 0.60 - 1.40 mg/dL ADM SS Electrolyte Balance 7.0 mEq/L Normal 4.0 - 15 .0 mEq/L AH ADM SS Eosinophils (Bld) [#/Vol] 0.1 103/mcL Normal 0.0 - 0.7 10^3/mcL Workflow SS Eosinophils/100 WBC (Bld) 2.3 % Normal 0.0 - 6.0 % AH Workflow SS Erythrocyte distribution width (RBC) [Ratio] 14.6 % Normal 11.5 - 15.5 % AH Workflow SS GFR/1.73 sq M.predicted among blacks MDRD (S/P/Bld) [Vol rate/Area] ml/min/1.73sqm Invalid Interpretation Code [facility] Chemistry S Comment on above: Interpretive Data: GFR Population mean for , Non- Americans Ages 20-29 = 116 mL/min/1.73 sq.m. Ages 30-39 = 107 mL/min/1.73 sq.m. Ages 40-49 = 99 mL/min/1.73 sq.m. Ages 50-59 = 93 mL/min/1.73 sq.m. Ages 60-69 = 85 mL/min/1.73 sq.m. Ages 70+ = 75 mL/min/1.73 sq.m. Chronic Kidney Disease: Less than 60 mL/min/1.73 square meters End Stage Renal Disease: Less than 15 mL/min/1.73 square meters GFR/1.73 sq M.predicted among non-blacks MDRD (S/P/Bld) [Vol rate/Area] ml/min/1.73sqm Invalid Interpretation Code [facility] Chemistry S Comment on above: Interpretive Data: GFR Population mean for , Non- Americans Ages 20-29 = 116 mL/min/1.73 sq.m. Ages 30-39 = 107 mL/min/1.73 sq.m. Ages 40-49 = 99 mL/min/1.73 sq.m. Ages 50-59 = 93 mL/min/1.73 sq.m. Ages 60-69 = 85 mL/min/1.73 sq.m. Ages 70+ = 75 mL/min/1.73 sq.m. Chronic Kidney Disease: Less than 60 mL/min/1.73 square meters End Stage Renal Disease: Less than 15 mL/min/1.73 square meters Glucose [Mass/Vol] 74 mg/dL Low 82 - 115 mg/dL ADM SS Hematocrit (Bld) [Volume fraction] 36.3 % Low 40.0 - 52.0 % Workflow SS Hemoglobin (Bld) [Mass/Vol] 12.2 G/dL Low 13.0 - 17.5 G/dL Workflow SS Lymphocytes (Bld) [#/Vol] 1.1 103/mcL Normal 0.9 - 4.3 10^3/mcL AH Workflow SS Lymphocytes/100 WBC (Bld) 18.7 % Low 20.0 - 40.0 % Workflow SS MCH (RBC) [Entitic mass] 34.5 pg High 27.0 - 33.0 pg Workflow SS MCHC 33.6 G/dL Normal 32.0 - 36.0 G/dL Workflow SS MCV (RBC) [Entitic vol] 102.6 fL High 81.0 - 100.0 fL Workflow SS Monocytes (Bld) [#/Vol] 0.7 103/mcL Normal 0.1 - 1.4 10^3/mcL Workflow SS Monocytes/100 WBC (Bld) 13.0 % Normal 2.0 - 13.0 % Workflow SS Neutrophils (Bld) [#/Vol] 3.7 103/mcL Normal 2.3 - 8.1 10^3/mcL Workflow SS Neutrophils/100 WBC (Bld) 65.2 % Normal 50.0 - 75.0 % Workflow SS Platelet mean volume (Bld) [Entitic vol] 8.8 fL Normal 6.4 - 10.5 fL Workflow SS Platelets (Bld) [#/Vol] 165 103/mcL Normal 150 - 450 10^3/mcL Workflow SS Potassium [Moles/Vol] 4.6 mmol/L Normal 3.5 - 5.0 mEq/L ADM SS RBC (Bld) [#/Vol] 3.53 106/mcL Low 4.50 - 6.0 0 10^6/mcL Workflow SS Sodium [Moles/Vol] 139 mmol/L Normal 136 - 145 mEq/L ADM SS Urea nitrogen [Mass/Vol] 11.0 mg/dL Normal 8.0 - 22.0 mg/dL ADM SS Urea nitrogen/Creatinine [Mass ratio] 10.2 ratio Normal 10.0 - 22.0 ratio ADM SS WBC (Bld) [#/Vol] 5.7 103/mcL Normal 4.5 - 10.8 10^3/mcL Workflow SS LABORATORYOrdered By: Bebeto Abbasi on 03-18-2023 Blood Glucose Testing Reason Routine (03/18/23 9:26 PM) [facility] Work Phone: LABORATORYOrdered By: Lin Hughes on 03-18-2023 Blood Glucose Interventions Retest (03/18/23 8:48 AM) [facility] Work Phone: Blood Glucose Interventions Administered agent to increase blood sugar (03/18/23 7:34 AM) [facility] Work Phone: MRI BRAIN W/O CONTRASTon MRI BRAIN W/O CONTRAST ORIGINAL EXAMINATION: MRI OF THE BRAIN WITHOUT CONTRAST 03/18/2023 6:38 pm TECHNIQUE: Multiplanar multisequence MRI of the brain was performed without the administration of intravenous contrast. COMPARISON: CT brain 03/15/2023. HISTORY: ORDERING SYSTEM PROVIDED HISTORY: Reason for Exam: confusion, cva FINDINGS: No acute infarct or acute hemorrhage. No midline shift, mass effect or hydrocephalus. There is moderate diffuse atrophy. There are small chronic infarcts involving the lateral aspect of the left frontal lobe and left temporal occipital junction. There is associated ex vacuo dilatation of the occipital horn left lateral ventricle. These areas demonstrate surrounding confluent T2 prolongation compatible with gliosis. Additionally, there is a small chronic hemorrhagic infarct involving the right parietooccipital junction. There is surrounding confluent T2 prolongation compatible with gliosis. There is hemosiderin staining as seen on gradient images. Tiny chronic infarcts are seen in the cerebellar hemispheres bilaterally, left greater than right. Mild patchy periventricular and subcortical white matter T2 prolongation, nonspecific but likely on the basis of chronic small vessel ischemic change. Basilar cisterns are patent. Paranasal sinuses grossly clear. Moderately severe mastoid inflammatory disease bilaterally. IMPRESSION: No acute findings. Multiple bilateral chronic infarcts detailed above. Probable chronic small vessel ischemic change. Moderate diffuse atrophy. Interpreted by: Enmanuel White Preliminary Report By: Enmanuel White Electronically signed By Enmanuel White Dictated Date: 03/18/2023 7:40:48 PM Prelim Date: 03/18/2023 7:45:52 PM Sign Date: 03/18/2023 7:45:52 PM Ordering Provider: MARIELY White [facility] ([place]) .Auto Diffon 03-17-2023 Basophil, Absolute 0.1 10 3/mcL Normal 0.0-0.3 [facility] ([place]) Comment on above: Performed By: #### L RADHA SARGENT, W, CBC, GFR, CMP, TROPHS, ANEU #### [address] [address] Basophils/100 WBC (Bld) 1.3 % Normal 0.0-2.5 [facility] ([place]) Comment on above: Performed By: #### L RADHA SARGENT MDW, CBC, GFR, CMP, TROPHS, ANEU #### [address] [address] Eosinophil, Absolute 0.1 10 3/mcL Normal 0.0-0.7 [facility] ([place]) Comment on above: Performed By: #### L AC, RADHA, W, CBC, GFR, CMP, TROPHS, ANEU #### [address] [address] Eosinophils/100 WBC (Bld) 2.6 % Normal 0.0-6.0 [facility] ([place] Comment on above: Performed By: #### L BELLE, RADHA, W, CBC, GFR, CMP, TROPHS, ANEU #### [address] [address] Lymphocyte, Absolute 1.0 10 3/mcL Normal 0.9-4.3 [facility] ([place]) Comment on above: Performed By: #### L BELLE, RADHA, W, CBC, GFR, CMP, TROPHS, ANEU #### [address] [address] Lymphocytes/100 WBC (Bld) 21.5 % Normal 20.0-40.0 [facility] ([place] Comment on above: Performed By: #### L BELLE, RADHA, W, CBC, GFR, CMP, TROPHS, ANEU #### [address] [address] Monocyte, Absolute 0.5 10 3/mcL Normal 0.1-1.4 [facility] ([place]) Comment on above: Performed By: #### L RADHA SARGENT MDW, CBC, GFR, CMP, TROPHS, ANEU #### [address] [address] Monocytes/100 WBC (Bld) 11.9 % Normal 2.0-13.0 [facility] ([place]) Comment on above: Performed By: #### L AC, RADHA, W, CBC, GFR, CMP, TROPHS, ANEU #### [address] [address] Neutrophils/100 WBC (Bld) 62.7 % Normal 50.0-75.0 [facility] ([place] Comment on above: Performed By: #### L RADHA SARGENT MDW, CBC, GFR, CMP, TROPHS, ANEU #### [address] [address] .GFRon 03-17-2023 GFR >60 Normal [facility] ([place]) Comment on above: Result Comment: GFR Population mean for , [...] 15 mL/min/1.73 square meters Performed By: #### L RADHA SARGENT MDW, CBC, GFR, CMP, TROPHS, ANEU #### [address] [address] GFR Non- >60 Normal [facility] ([place] Comment on above: Result Comment: GFR Population mean for , [...] 15 mL/min/1.73 square meters Performed By: #### L RADHA SARGENT MDW, CBC, GFR, CMP, TROPHS, ANEU #### [address] [address] .NEUABSon 03-17-2023 Neutrophil, Absolute 2.8 10 3/mcL Normal 2.3-8.1 [facility] ([place]) Comment on above: Performed By: #### L RADHA SARGENT MDW, CBC, GFR, CMP, TROPHS, ANEU #### [address] [address] BMPon 03-17-2023 BUN/Creatinine Ratio 10.7 ratio Normal 10.0-22.0 [facility] ([place]) Comment on above: Performed By: #### RADHA COSTA MDW, CBC, GFR, CMP, TROPHS, ANEU #### [place] [address] Calcium [Mass/Vol] 8.5 mg/dL Low 8.7-10.4 [facility] ([place]) Comment on above: Performed By: #### L RADHA SARGENT MDW, CBC, GFR, CMP, TROPHS, ANEU #### [address] [address] Chloride [Moles/Vol] 109 mmol/L Normal 98-110 [facility] ([place]) Comment on above: Performed By: #### L RADHA SARGENT MDW, CBC, GFR, CMP, TROPHS, ANEU #### [address] [address] CO2 [Moles/Vol] 27 mmol/L Normal 22-32 [facility] ([place] Comment on above: Performed By: #### L RADHA SARGENT MDW, CBC, GFR, CMP, TROPHS, ANEU #### [place] [id number] Creatinine [Mass/Vol] 0.84 mg/dL Normal 0.60-1.40 [facility] ([place]) Comment on above: Performed By: #### L RADHA SARGENT MDW, CBC, GFR, CMP, TROPHS, ANEU #### [address] [address] Electrolyte Balance 3.0 mEq/L Low 4.0-15.0 [facility] ([place]) Comment on above: Performed By: #### L RADHA SARGENT MDW, CBC, GFR, CMP, TROPHS, ANEU #### [address] [address] Glucose [Mass/Vol] 69 mg/dL Low 82-115 [facility] ([place]) Comment on above: Performed By: #### L RADHA SARGENT MDW, CBC, GFR, CMP, TROPHS, ANEU #### [address] [address] Potassium [Moles/Vol] 4.4 mmol/L Normal 3.5-5.0 [facility] ([place]) Comment on above: Performed By: #### L RADHA SARGENT MDW, CBC, GFR, CMP, TROPHS, ANEU #### [address] [address] Sodium [Moles/Vol] 139 mmol/L Normal 136-145 [facility] ([place]) Comment on above: Performed By: #### L RADHA SARGENT MDW, CBC, GFR, CMP, TROPHS, ANEU #### [place] [id number] Urea nitrogen [Mass/Vol] 9.0 mg/dL Normal 8.0-22.0 [facility] ([place] Comment on above: Performed By: #### L RADHA SARGENT MDW, CBC, GFR, CMP, TROPHS, ANEU #### [address] [address] CBCon 03-17-2023 Erythrocyte distribution width (RBC) [Ratio] 14.3 % Normal 11.5-15.5 [facility] ([place] Comment on above: Performed By: #### L RADHA SARGENT MDW, CBC, GFR, CMP, TROPHS, ANEU #### [address] [address] Hematocrit (Bld) [Volume fraction] 37.6 % Low 40.0-52.0 [facility] ([place] Comment on above: Performed By: #### L RADHA SARGENT MDW, CBC, GFR, CMP, TROPHS, ANEU #### [place] [address] Hgb 12.7 G/dL Low 13.0-17.5 [facility] ([place] Comment on above: Performed By: #### L RADHA SARGENT MDW, CBC, GFR, CMP, TROPHS, ANEU #### [place] [address] MCH (RBC) [Entitic mass] 34.2 pg High 27.0-33.0 [facility] ([place] Comment on above: Performed By: #### L RADHA SARGENT MDW, CBC, GFR, CMP, TROPHS, ANEU #### [place] [address] MCHC 33.7 G/dL Normal 32.0-36.0 [facility] ([place] Comment on above: Performed By: #### L RADHA SARGENT MDW, CBC, GFR, CMP, TROPHS, ANEU #### [place] [address] MCV (RBC) [Entitic vol] 101.7 fL High 81.0-100.0 [facility] ([place]) Comment on above: Performed By: #### L RADHA SARGENT MDW, CBC, GFR, CMP, TROPHS, ANEU #### [place] [address] Platelet 189 10 3/mcL Normal 150-450 [facility] ([place] Comment on above: Performed By: #### L RADHA SARGENT MDW, CBC, GFR, CMP, TROPHS, ANEU #### [place] [address] Platelet mean volume (Bld) [Entitic vol] 9.1 fL Normal 6.4-10.5 [facility] ([place] Comment on above: Performed By: #### L RADHA SARGENT, KEIKO, CBC, GFR, CMP, TROPHS, ANEU #### [place] [address] RBC 3.70 10 6/mcL Low 4.50-6.00 [facility] ([place] Comment on above: Performed By: #### L RADHA SARGENT MDW, CBC, GFR, CMP, TROPHS, ANEU #### [address] [address] WBC 4.4 10 3/mcL Low 4.5-10.8 [facility] ([place] Comment on above: Performed By: #### L RADHA SARGENT MDW, CBC, GFR, CMP, TROPHS, ANEU #### [address] [address] LABORATORYOrdered By: SYSTEM SYSTEM on 03-17-2023 Basophils (Bld) [#/Vol] 0.1 103/mcL Normal 0.0 - 0.3 10^3/mcL Workflow SS Basophils/100 WBC (Bld) 1.3 % Normal 0.0 - 2.5 % Workflow SS Calcium [Mass/Vol] 8.5 mg/dL Low 8.7 - 10. 4 mg/dL ADM SS Chloride [Moles/Vol] 109 mmol/L Normal 98 - 11 0 mEq/L ADM SS CO2 [Moles/Vol] 27 mmol/L Normal 22 - 32 mEq/L ADM SS Creatinine [Mass/Vol] 0.84 mg/dL Normal 0.60 - 1.40 mg/dL ADM SS Electrolyte Balance 3.0 mEq/L Low 4.0 - 15 .0 mEq/L ADM SS Eosinophils (Bld) [#/Vol] 0.1 103/mcL Normal 0.0 - 0.7 10^3/mcL Workflow SS Eosinophils/100 WBC (Bld) 2.6 % Normal 0.0 - 6.0 % Workflow SS Erythrocyte distribution width (RBC) [Ratio] 14.3 % Normal 11.5 - 15.5 % Workflow SS GFR/1.73 sq M.predicted among blacks MDRD (S/P/Bld) [Vol rate/Area] ml/min/1.73sqm Invalid Interpretation Code Chemistry S Comment on above: Interpretive Data: GFR Population mean for , Non- Americans Ages 20-29 = 116 mL/min/1.73 sq.m. Ages 30-39 = 107 mL/min/1.73 sq.m. Ages 40-49 = 99 mL/min/1.73 sq.m. Ages 50-59 = 93 mL/min/1.73 sq.m. Ages 60-69 = 85 mL/min/1.73 sq.m. Ages 70+ = 75 mL/min/1.73 sq.m. Chronic Kidney Disease: Less than 60 mL/min/1.73 square meters End Stage Renal Disease: Less than 15 mL/min/1.73 square meters GFR/1.73 sq M.predicted among non-blacks MDRD (S/P/Bld) [Vol rate/Area] ml/min/1.73sqm Invalid Interpretation Code Chemistry S Comment on above: Interpretive Data: GFR Population mean for , Non- Americans Ages 20-29 = 116 mL/min/1.73 sq.m. Ages 30-39 = 107 mL/min/1.73 sq.m. Ages 40-49 = 99 mL/min/1.73 sq.m. Ages 50-59 = 93 mL/min/1.73 sq.m. Ages 60-69 = 85 mL/min/1.73 sq.m. Ages 70+ = 75 mL/min/1.73 sq.m. Chronic Kidney Disease: Less than 60 mL/min/1.73 square meters End Stage Renal Disease: Less than 15 mL/min/1.73 square meters Glucose [Mass/Vol] 69 mg/dL Low 82 - 115 mg/dL ADM SS Hematocrit (Bld) [Volume fraction] 37.6 % Low 40.0 - 52.0 % Workflow SS Hemoglobin (Bld) [Mass/Vol] 12.7 G/dL Low 13.0 - 17.5 G/dL AH Workflow SS Lymphocytes (Bld) [#/Vol] 1.0 103/mcL Normal 0.9 - 4.3 10^3/mcL Workflow SS Lymphocytes/100 WBC (Bld) 21.5 % Normal 20.0 - 40.0 % Workflow SS MCH (RBC) [Entitic mass] 34.2 pg High 27.0 - 33.0 pg AH Workflow SS MCHC 33.7 G/dL Normal 32.0 - 36.0 G/dL Workflow SS MCV (RBC) [Entitic vol] 101.7 fL High 81.0 - 100.0 fL AH Workflow SS Monocytes (Bld) [#/Vol] 0.5 103/mcL Normal 0.1 - 1.4 10^3/mcL AH Workflow SS Monocytes/100 WBC (Bld) 11.9 % Normal 2.0 - 13.0 % AH Workflow SS Neutrophils (Bld) [#/Vol] 2.8 103/mcL Normal 2.3 - 8.1 10^3/mcL AH Workflow SS Neutrophils/100 WBC (Bld) 62.7 % Normal 50.0 - 75.0 % AH Workflow SS Platelet mean volume (Bld) [Entitic vol] 9.1 fL Normal 6.4 - 10.5 fL AH Workflow SS Platelets (Bld) [#/Vol] 189 103/mcL Normal 150 - 450 10^3/mcL AH Workflow SS Potassium [Moles/Vol] 4.4 mmol/L Normal 3.5 - 5.0 mEq/L ADM SS RBC (Bld) [#/Vol] 3.70 106/mcL Low 4.50 - 6.0 0 10^6/mcL AH Workflow SS Sodium [Moles/Vol] 139 mmol/L Normal 136 - 145 mEq/L ADM SS Urea nitrogen [Mass/Vol] 9.0 mg/dL Normal 8.0 - 22.0 mg/dL AH ADM SS Urea nitrogen/Creatinine [Mass ratio] 10.7 ratio Normal 10.0 - 22.0 ratio AH ADM SS WBC (Bld) [#/Vol] 4.4 103/mcL Low 4.5 - 10.8 10^3/mcL AH Workflow SS .Auto Diffon 03-16-2023 Basophil, Absolute 0.0 10 3/mcL Normal 0.0-0.3 [facility] ([place]) Comment on above: Performed By: #### L RADHA SARGENT MDW, CBC, GFR, CMP, TROPHS, ANEU #### [address] [address] Basophils/100 WBC (Bld) 0.4 % Normal 0.0-2.5 A [facility] ([place]) Comment on above: Performed By: #### L RADHA SARGENT MDW, CBC, GFR, CMP, TROPHS, ANEU #### [address] [address] Eosinophil, Absolute 0.1 10 3/mcL Normal 0.0-0.7 [facility] ([place]) Comment on above: Performed By: #### L RADHA SARGENT MDW, CBC, GFR, CMP, TROPHS, ANEU #### [address] [address] Eosinophils/100 WBC (Bld) 1.2 % Normal 0.0-6.0 [facility] ([place]) Comment on above: Performed By: #### L BELLE, RADHA, W, CBC, GFR, CMP, TROPHS, ANEU #### [address] [address] Lymphocyte, Absolute 0.8 10 3/mcL Low 0.9-4.3 [facility] ([place]) Comment on above: Performed By: #### L BELLE, RADHA, W, CBC, GFR, CMP, TROPHS, ANEU #### [address] [address] Lymphocytes/100 WBC (Bld) 11.6 % Low 20.0-40.0 [facility] ([place]) Comment on above: Performed By: #### L BELLE, RADHA, W, CBC, GFR, CMP, TROPHS, ANEU #### [address] [address] Monocyte, Absolute 0.6 10 3/mcL Normal 0.1-1.4 [facility] ([place]) Comment on above: Performed By: #### L BELLE, KEIKO GARCIA, CBC, GFR, CMP, TROPHS, ANEU #### [address] [address] Monocytes/100 WBC (Bld) 8.3 % Normal 2.0-13.0 [facility] ([place]) Comment on above: Performed By: #### L RADHA SARGENT, KEIKO, CBC, GFR, CMP, TROPHS, ANEU #### [address] [address] Neutrophils/100 WBC (Bld) 78.5 % High 50.0-75.0 [facility] ([place]) Comment on above: Performed By: #### L BELLERADHA MDW, CBC, GFR, CMP, TROPHS, ANEU #### [address] [address] .GFRon 03-16-2023 GFR Non- >60 Normal [facility] ([place]) Comment on above: Result Comment: GFR Population mean for , [...] 15 mL/min/1.73 square meters Performed By: #### L RADHA SARGENT MDW, CBC, GFR, CMP, TROPHS, ANEU #### [address] [address] GFR >60 Normal [facility] ([place]) Comment on above: Result Comment: GFR Population mean for , [...] 15 mL/min/1.73 square meters Performed By: #### L RADHA SARGENT MDW, CBC, GFR, CMP, TROPHS, ANEU #### [address] [address] .NEUABSon 03-16-2023 Neutrophil, Absolute 5.3 10 3/mcL Normal 2.3-8.1 [facility] ([place]) Comment on above: Performed By: #### L RADHA SARGENT MDW, CBC, GFR, CMP, TROPHS, ANEU #### [address] [address] BMPon 03-16-2023 BUN/Creatinine Ratio 9.0 ratio Low 10.0-22.0 [facility] ([place] Comment on above: Performed By: #### L RADHA SARGENT MDW, CBC, GFR, CMP, TROPHS, ANEU #### [place] [id number] Calcium [Mass/Vol] 8.1 mg/dL Low 8.7-10.4 [facility] ([place]) Comment on above: Performed By: #### L RADHA SARGENT MDW, CBC, GFR, CMP, TROPHS, ANEU #### [place] [id number] Chloride [Moles/Vol] 110 mmol/L Normal 98-110 [facility] ([place]) Comment on above: Performed By: #### L RADHA SARGENT MDW, CBC, GFR, CMP, TROPHS, ANEU #### [place] [id number] CO2 [Moles/Vol] 26 mmol/L Normal 22-32 [facility] ([place]) Comment on above: Performed By: #### L RADHA SARGENT MDW, CBC, GFR, CMP, TROPHS, ANEU #### [place] [id number] Creatinine [Mass/Vol] 0.89 mg/dL Normal 0.60-1.40 [facility] ([place]) Comment on above: Performed By: #### L RADHA SARGENT MDW, CBC, GFR, CMP, TROPHS, ANEU #### [address] [address] Electrolyte Balance 1.0 mEq/L Low 4.0-15.0 [facility] ([place]) Comment on above: Performed By: #### L RADHA SARGENT MDW, CBC, GFR, CMP, TROPHS, ANEU #### [address] [address] Glucose [Mass/Vol] 263 mg/dL High 82-115 [facility] ([place]) Comment on above: Performed By: #### L RADHA SARGENT MDW, CBC, GFR, CMP, TROPHS, ANEU #### [address] [address] Potassium [Moles/Vol] 4.7 mmol/L Normal 3.5-5.0 [facility] ([place]) Comment on above: Result Comment: Spec imen slightly hemolyzed. Performed By: #### L RADHA SARGENT MDW, CBC, GFR, CMP, TROPHS, ANEU #### [place] [address] Sodium [Moles/Vol] 137 mmol/L Normal 136-145 [facility] ([place]) Comment on above: Performed By: #### RADHA COSTA MDW, CBC, GFR, CMP, TROPHS, ANEU #### [place] [id number] Urea nitrogen [Mass/Vol] 8.0 mg/dL Normal 8.0-22.0 [facility] ([place]) Comment on above: Performed By: #### L RADHA SARGENT MDW, CBC, GFR, CMP, TROPHS, ANEU #### [place] [address] CBCon 03-16-2023 Erythrocyte distribution width (RBC) [Ratio] 14.7 % Normal 11.5-15.5 [facility] ([place]) Comment on above: Performed By: #### L RADHA SARGENT MDW, CBC, GFR, CMP, TROPHS, ANEU #### [address] [address] Hematocrit (Bld) [Volume fraction] 38.7 % Low 40.0-52.0 [facility] ([place] Comment on above: Performed By: #### RADHA COSTA MDW, CBC, GFR, CMP, TROPHS, ANEU #### [place] [id number] Hgb 13.0 G/dL Normal 13.0-17.5 [facility] ([place]) Comment on above: Performed By: #### L RADHA SARGENT MDW, CBC, GFR, CMP, TROPHS, ANEU #### [place] [address] MCH (RBC) [Entitic mass] 34.1 pg High 27.0-33.0 [facility] ([place] Comment on above: Performed By: #### L BELLE, RADHA, W, CBC, GFR, CMP, TROPHS, ANEU #### [place] [address] MCHC 33.5 G/dL Normal 32.0-36.0 [facility] ([place] Comment on above: Performed By: #### L RADHA SARGENT, KEIKO, CBC, GFR, CMP, TROPHS, ANEU #### [place] [address] MCV (RBC) [Entitic vol] 101.7 fL High 81.0-100.0 A [facility] ([place]) Comment on above: Performed By: #### L RADHA SARGENT MDW, CBC, GFR, CMP, TROPHS, ANEU #### [place] [address] Platelet 196 10 3/mcL Normal 150-450 [facility] ([place]) Comment on above: Performed By: #### L RADHA SARGENT MDW, CBC, GFR, CMP, TROPHS, ANEU #### [place] [address] Platelet mean volume (Bld) [Entitic vol] 8.6 fL Normal 6.4-10.5 [facility] ([place] Comment on above: Performed By: #### L RADHA SARGENT, KEIKO, CBC, GFR, CMP, TROPHS, ANEU #### [place] [address] RBC 3.80 10 6/mcL Low 4.50-6.00 [facility] ([place] Comment on above: Performed By: #### L BELLE, RADAH, W, CBC, GFR, CMP, TROPHS, ANEU #### [place] [address] WBC 6.7 10 3/mcL Normal 4.5-10.8 [facility] ([place]) Comment on above: Performed By: #### L RADHA SARGENT MDW, CBC, GFR, CMP, TROPHS, ANEU #### [facility] [address] [place] [id number] LABORATORYOrdered By: SYSTEM SYSTEM on 03-16-2023 Calcium [Mass/Vol] 8.1 mg/dL Low 8.7 - 10. 4 mg/dL AH ADM SS Chloride [Moles/Vol] 110 mmol/L Normal 98 - 11 0 mEq/L AH ADM SS CO2 [Moles/Vol] 26 mmol/L Normal 22 - 32 mEq/L AH ADM SS Creatinine [Mass/Vol] 0.89 mg/dL Normal 0.60 - 1.40 mg/dL AH ADM SS Electrolyte Balance 1.0 mEq/L Low 4.0 - 15 .0 mEq/L AH ADM SS GFR/1.73 sq M.predicted among blacks MDRD (S/P/Bld) [Vol rate/Area] ml/min/1.73sqm Invalid Interpretation Code [facility] S Comment on above: Interpretive Data: GFR Population mean for , Non- Americans Ages 20-29 = 116 mL/min/1.73 sq.m. Ages 30-39 = 107 mL/min/1.73 sq.m. Ages 40-49 = 99 mL/min/1.73 sq.m. Ages 50-59 = 93 mL/min/1.73 sq.m. Ages 60-69 = 85 mL/min/1.73 sq.m. Ages 70+ = 75 mL/min/1.73 sq.m. Chronic Kidney Disease: Less than 60 mL/min/1.73 square meters End Stage Renal Disease: Less than 15 mL/min/1.73 square meters GFR/1.73 sq M.predicted among non-blacks MDRD (S/P/Bld) [Vol rate/Area] ml/min/1.73sqm Invalid Interpretation Code [facility] S Comment on above: Interpretive Data: GFR Population mean for , Non- Americans Ages 20-29 = 116 mL/min/1.73 sq.m. Ages 30-39 = 107 mL/min/1.73 sq.m. Ages 40-49 = 99 mL/min/1.73 sq.m. Ages 50-59 = 93 mL/min/1.73 sq.m. Ages 60-69 = 85 mL/min/1.73 sq.m. Ages 70+ = 75 mL/min/1.73 sq.m. Chronic Kidney Disease: Less than 60 mL/min/1.73 square meters End Stage Renal Disease: Less than 15 mL/min/1.73 square meters Glucose [Mass/Vol] 263 mg/dL High 82 - 115 mg/dL AH ADM SS Potassium [Moles/Vol] 4.7 mmol/L Normal 3.5 - 5.0 mEq/L AH ADM SS Comment on above: Result Comment: Spec imen slightly hemolyzed. Sodium [Moles/Vol] 137 mmol/L Normal 136 - 145 mEq/L AH ADM SS Urea nitrogen [Mass/Vol] 8.0 mg/dL Normal 8.0 - 22.0 mg/dL AH ADM SS Urea nitrogen/Creatinine [Mass ratio] 9.0 ratio Low 10.0 - 22.0 ratio AH ADM SS Basophils (Bld) [#/Vol] 0.0 103/mcL Normal 0.0 - 0.3 10^3/mcL AH Workflow SS Basophils/100 WBC (Bld) 0.4 % Normal 0.0 - 2.5 % AH Workflow SS Eosinophils (Bld) [#/Vol] 0.1 103/mcL Normal 0.0 - 0.7 10^3/mcL AH Workflow SS Eosinophils/100 WBC (Bld) 1.2 % Normal 0.0 - 6.0 % AH Workflow SS Erythrocyte distribution width (RBC) [Ratio] 14.7 % Normal 11.5 - 15.5 % AH Workflow SS Hematocrit (Bld) [Volume fraction] 38.7 % Low 40.0 - 52.0 % AH Workflow SS Hemoglobin (Bld) [Mass/Vol] 13.0 G/dL Normal 13.0 - 17.5 G/dL AH Workflow SS Lymphocytes (Bld) [#/Vol] 0.8 103/mcL Low 0.9 - 4.3 10^3/mcL AH Workflow SS Lymphocytes/100 WBC (Bld) 11.6 % Low 20.0 - 40.0 % Workflow SS MCH (RBC) [Entitic mass] 34.1 pg High 27.0 - 33.0 pg AH Workflow SS MCHC 33.5 G/dL Normal 32.0 - 36.0 G/dL AH Workflow SS MCV (RBC) [Entitic vol] 101.7 fL High 81.0 - 100.0 fL AH Workflow SS Monocytes (Bld) [#/Vol] 0.6 103/mcL Normal 0.1 - 1.4 10^3/mcL AH Workflow SS Monocytes/100 WBC (Bld) 8.3 % Normal 2.0 - 13.0 % AH Workflow SS Neutrophils (Bld) [#/Vol] 5.3 103/mcL Normal 2.3 - 8.1 10^3/mcL AH Workflow SS Neutrophils/100 WBC (Bld) 78.5 % High 50.0 - 75.0 % AH Workflow SS Platelet mean volume (Bld) [Entitic vol] 8.6 fL Normal 6.4 - 10.5 fL AH Workflow SS Platelets (Bld) [#/Vol] 196 103/mcL Normal 150 - 450 10^3/mcL AH Workflow SS RBC (Bld) [#/Vol] 3.80 106/mcL Low 4.50 - 6.0 0 10^6/mcL AH Workflow SS WBC (Bld) [#/Vol] 6.7 103/mcL Normal 4.5 - 10.8 10^3/mcL AH Workflow SS Magnesium [Mass/Vol] 1.8 mg/dL Normal 1.6 - 2 .4 mg/dL ADM SS Phosphate [Mass/Vol] 4.6 mg/dL Normal 2.4 - 5 .1 mg/dL ADM SS Comment on above: Interpretive Data: * *Note - New Reference Range in effect 19 MGon 03-16-2023 Magnesium [Mass/Vol] 1.8 mg/dL Normal 1.6-2.4 [facility] ([place]) Comment on above: Performed By: #### L RADHA SARGENT MDW, CBC, GFR, CMP, TROPHS, ANEU #### [address] [address] PHOSon 03-16-2023 Phosphate [Mass/Vol] 4.6 mg/dL Normal 2.4-5.1 [facility] ([place]) Comment on above: Result Comment: No te - New Reference Range in effect 19 Performed By: #### L AC, RADHA, MDW, CBC, GFR, CMP, TROPHS, ANEU #### [address] [address] .Auto Diffon 03-15-2023 Basophil, Absolute 0.0 10 3/mcL Normal 0.0-0.3 [facility] ([place]) Comment on above: Performed By: #### L AC, ALVAIFF, MDW, CBC, GFR, CMP, TROPHS, ANEU #### [address] [address] Basophils/100 WBC (Bld) 0.9 % Normal 0.0-2.5 A [facility] ([place]) Comment on above: Performed By: #### L AC, RADHA, MDW, CBC, GFR, CMP, TROPHS, ANEU #### [address] [address] Eosinophil, Absolute 0.1 10 3/mcL Normal 0.0-0.7 [facility] ([place]) Comment on above: Performed By: #### L AC, RADHA, MDW, CBC, GFR, CMP, TROPHS, ANEU #### [address] [address] Eosinophils/100 WBC (Bld) 2.5 % Normal 0.0-6.0 [facility] ([place]) Comment on above: Performed By: #### L AC, RADHA, MDW, CBC, GFR, CMP, TROPHS, ANEU #### [address] [address] Lymphocyte, Absolute 1.5 10 3/mcL Normal 0.9-4.3 [facility] ([place]) Comment on above: Performed By: #### L AC, RADHA, W, CBC, GFR, CMP, TROPHS, ANEU #### [address] [address] Lymphocytes/100 WBC (Bld) 27.6 % Normal 20.0-40.0 [facility] ([place]) Comment on above: Performed By: #### L AC, RADHA, MDW, CBC, GFR, CMP, TROPHS, ANEU #### [address] [address] Monocyte, Absolute 0.5 10 3/mcL Normal 0.1-1.4 [facility] ([place]) Comment on above: Performed By: #### L RADHA SARGENT MDW, CBC, GFR, CMP, TROPHS, ANEU #### [address] [address] Monocytes/100 WBC (Bld) 8.7 % Normal 2.0-13.0 A [facility] ([place]) Comment on above: Performed By: #### L RADHA SARGENT MDW, CBC, GFR, CMP, TROPHS, ANEU #### [address] [address] Neutrophils/100 WBC (Bld) 60.3 % Normal 50.0-75.0 [facility] ([place] Comment on above: Performed By: #### L RADHA SARGENT MDW, CBC, GFR, CMP, TROPHS, ANEU #### [address] [address] .GFRon 03-15-2023 GFR Non- >60 Normal [facility] ([place]) Comment on above: Result Comment: GFR Population mean for , [...] 15 mL/min/1.73 square meters Performed By: #### L RADHA SARGENT MDW, CBC, GFR, CMP, TROPHS, ANEU #### [address] [address] GFR >60 Normal [facility] ([place]) Comment on above: Result Comment: GFR Population mean for , [...] 15 mL/min/1.73 square meters Performed By: #### L RADHA SARGENT MDW, CBC, GFR, CMP, TROPHS, ANEU #### [place] [address] .MDWon 03-15-2023 Monocyte Distribution Width 17.99 Normal 0.00-20.00 [facility] ([place] Comment on above: Result Comment: For ED adult patients suspected of sepsis, MDW<=20.0 does not rule out sepsis or risk of sepsis Performed By: #### L RADHA SARGENT MDW, CBC, GFR, CMP, TROPHS, ANEU #### [place] [address] .NEUABSon 03-15-2023 Neutrophil, Absolute 3.2 10 3/mcL Normal 2.3-8.1 [facility] ([place]) Comment on above: Performed By: #### L RADHA SARGENT MDW, CBC, GFR, CMP, TROPHS, ANEU #### [place] [address] Wilbert 03-15-2023 Ammonia 27 mcmol/l Normal 11-32 [facility] ([place] Comment on above: Result Comment: Spec imen slightly hemolyzed. Performed By: #### L RADHA SARGENT MDW, CBC, GFR, CMP, TROPHS, ANEU #### [place] [address] APTTon 03-15-2023 aPTT Coag (Bld) [Time] 29.7 s Normal 25.0-35.0 [facility] ([place]) Comment on above: Order Comment: blue top clotted. called ann-marie. Result Comment: For Heparin anticoagulation therapy, the recommended therapeutic range is: 54-77 seconds (APTT Correlation with Anti-Xa therapeutic range of 0.3-0.7 units/ml). PLEASE REFERENCE THE PHARMACY PROTOCOL FOR DOSING. Performed By: #### L BELLE, RADHA, W, CBC, GFR, CMP, TROPHS, ANEU #### [place] [address] Heparin dose (APTT) Unknown Normal [facility] ([place]) Comment on above: Order Comment: blue top clotted. called ann-marie. Performed By: #### L BELLE, RADHA, W, CBC, GFR, CMP, TROPHS, ANEU #### [place] [address] CBCon 03-15-2023 Erythrocyte distribution width (RBC) [Ratio] 14.7 % Normal 11.5-15.5 [facility] ([place] Comment on above: Performed By: #### L BELLE, RADHA, MDW, CBC, GFR, CMP, TROPHS, ANEU #### [place] [address] Hematocrit (Bld) [Volume fraction] 38.5 % Low 40.0-52.0 [facility] ([place] Comment on above: Performed By: #### L BELLE, RADHA, MDW, CBC, GFR, CMP, TROPHS, ANEU #### [place] [address] Hgb 12.8 G/dL Low 13.0-17.5 [facility] ([place] Comment on above: Performed By: #### L BELLE, RADHA, MDW, CBC, GFR, CMP, TROPHS, ANEU #### [place] [address] MCH (RBC) [Entitic mass] 34.0 pg High 27.0-33.0 [facility] ([place] Comment on above: Performed By: #### L AC, RADHA, MDW, CBC, GFR, CMP, TROPHS, ANEU #### [place] [id number] MCHC 33.1 G/dL Normal 32.0-36.0 [facility] ([place] Comment on above: Performed By: #### L RADHA SARGENT MDW, CBC, GFR, CMP, TROPHS, ANEU #### [place] [address] MCV (RBC) [Entitic vol] 102.6 fL High 81.0-100.0 A [facility] ([place]) Comment on above: Performed By: #### L RADHA SARGENT MDW, CBC, GFR, CMP, TROPHS, ANEU #### [place] [address] Platelet 204 10 3/mcL Normal 150-450 [facility] ([place]) Comment on above: Performed By: #### L RADHA SARGENT MDW, CBC, GFR, CMP, TROPHS, ANEU #### [place] [address] Platelet mean volume (Bld) [Entitic vol] 9.0 fL Normal 6.4-10.5 [facility] ([place] Comment on above: Performed By: #### L RADHA SARGENT MDW, CBC, GFR, CMP, TROPHS, ANEU #### [place] [address] RBC 3.75 10 6/mcL Low 4.50-6.00 [facility] ([place]) Comment on above: Performed By: #### L RADHA SARGENT MDW, CBC, GFR, CMP, TROPHS, ANEU #### [place] [address] WBC 5.3 10 3/mcL Normal 4.5-10.8 [facility] ([place] Comment on above: Performed By: #### RADHA COSTA MDW, CBC, GFR, CMP, TROPHS, ANEU #### [place] [address] CMPon 03-15-2023 Albumin Level 2.4 G/dL Low 3.2-4.8 [facility] ([place] Comment on above: Performed By: #### L RADHA SARGENT MDW, CBC, GFR, CMP, TROPHS, ANEU #### [place] [address] Albumin/Globulin [Mass ratio] 0.9 {ratio} Normal 0.9-1.6 [facility] ([place] Comment on above: Performed By: #### L RADHA SARGENT MDW, CBC, GFR, CMP, TROPHS, ANEU #### [place] [address] ALP [Catalytic activity/Vol] 125 U/L Normal 38-126 [facility] ([place] Comment on above: Performed By: #### L RADHA SARGENT MDW, CBC, GFR, CMP, TROPHS, ANEU #### [place] [address] ALT [Catalytic activity/Vol] 29 U/L Normal 12-55 [facility] ([place] Comment on above: Performed By: #### L RADHA SARGENT MDW, CBC, GFR, CMP, TROPHS, ANEU #### [place] [address] AST [Catalytic activity/Vol] 53 U/L High 8-34 [facility] ([place] Comment on above: Performed By: #### L RADHA SARGENT MDW, CBC, GFR, CMP, TROPHS, ANEU #### [place] [address] Bili Total <0.20 Normal 0.20-1.20 [facility] ([place]) Comment on above: Result Comment: Use of this assay is not recommended for patients undergoing treatment with eltrombopag due to the potential for falsely elevated results. Performed By: #### L RADHA SARGENT MDW, CBC, GFR, CMP, TROPHS, ANEU #### [place] [address] Calcium [Mass/Vol] 8.0 mg/dL Low 8.7-10.4 [facility] ([place]) Comment on above: Performed By: #### L RADHA SARGENT MDW, CBC, GFR, CMP, TROPHS, ANEU #### [place] [address] Chloride [Moles/Vol] 110 mmol/L Normal 98-110 [facility] ([place]) Comment on above: Performed By: #### L RADHA SARGENT MDW, CBC, GFR, CMP, TROPHS, ANEU #### [address] [address] CO2 [Moles/Vol] 23 mmol/L Normal 22-32 [facility] ([place]) Comment on above: Performed By: #### L RADHA SARGENT MDW, CBC, GFR, CMP, TROPHS, ANEU #### [address] [address] Creatinine [Mass/Vol] 0.92 mg/dL Normal 0.60-1.40 [facility] ([place]) Comment on above: Performed By: #### L RADHA SARGENT MDW, CBC, GFR, CMP, TROPHS, ANEU #### [address] [address] Electrolyte Balance 8.0 mEq/L Normal 4.0-15.0 [facility] ([place]) Comment on above: Performed By: #### L RADHA SARGENT MDW, CBC, GFR, CMP, TROPHS, ANEU #### [address] [address] Globulin 2.8 G/dL Normal 1.5-3.8 [facility] ([place]) Comment on above: Performed By: #### RADHA COSTA MDW, CBC, GFR, CMP, TROPHS, ANEU #### [address] [address] Glucose [Mass/Vol] 241 mg/dL High 82-115 [facility] ([place]) Comment on above: Performed By: #### L RADHA SARGENT MDW, CBC, GFR, CMP, TROPHS, ANEU #### [address] [address] Potassium [Moles/Vol] 4.1 mmol/L Normal 3.5-5.0 [facility] ([place]) Comment on above: Result Comment: Spec imen slightly hemolyzed. Performed By: #### L RADHA SARGENT MDW, CBC, GFR, CMP, TROPHS, ANEU #### [address] [address] Sodium [Moles/Vol] 141 mmol/L Normal 136-145 [facility] ([place]) Comment on above: Performed By: #### L RADHA SARGENT MDW, CBC, GFR, CMP, TROPHS, ANEU #### [address] [address] Total Protein 5.2 G/dL Low 5.7-8.2 [facility] ([place]) Comment on above: Result Comment: No te - New Reference Range in effect 19 Performed By: #### L RADHA SARGENT MDW, CBC, GFR, CMP, TROPHS, ANEU #### [address] [address] Urea nitrogen [Mass/Vol] mg/dL Low 8.0-22.0 [facility] ([place]) Comment on above: Performed By: #### L RADHA SARGENT MDW, CBC, GFR, CMP, TROPHS, ANEU #### [address] [address] Urea nitrogen/Creatinine [Mass ratio] mg/mg Low 10.0-22.0 [facility] ([place]) Comment on above: Performed By: #### L RADHA SARGENT MDW, CBC, GFR, CMP, TROPHS, ANEU #### [address] [address] [address] ABD/PELVIS W/ IV CONTRAST ONLYon 03-15-2023 CT ABD/PELVIS W/ IV CONTRAST ONLY ORIGINAL EXAMINATION: CT OF THE ABDOMEN AND PELVIS WITH CONTRAST 03/15/2023 2:43 pm TECHNIQUE: CT of the abdomen and pelvis was performed with the administration of intravenous contrast. Multiplanar reformatted images are provided for review. Automated exposure control, iterative reconstruction, and/or weight based adjustment of the mA/kV was utilized to reduce the radiation dose to as low as reasonably achievable. COMPARISON: January 19, 2018 HISTORY: ORDERING SYSTEM PROVIDED HISTORY: Reason for Exam: pt states no abdominal complaints, was supposed to receive imaging of liver earlier today but was a rapid response as outpt, hx alcohol abuse Supposed to obtain imaging of his liver earlier today was rapid and here FINDINGS: Minor degenerative changes are noted in the spine. 3 mm juxtapleural right middle lobe nodule seen. The lung bases are otherwise unremarkable. A subcentimeter cyst is noted at the dome of the liver. The liver shows diffuse fatty infiltration. The liver surface is not particularly nodular. A focal liver lesion is not evident. Spleen, adrenal glands are unremarkable. Pancreatic parenchymal atrophy is present with prominent ductal dilatation throughout the pancreas, with innumerable dystrophic calcifications. These findings are most compatible with prominent chronic pancreatitis, and the findings are very similar to the previous study. No definite kidney abnormality is visible. No adenopathy, free air or free fluid is visible. The urinary bladder is distended but shows no focal lesion. No GI tract abnormality is visible. A small fat containing umbilical hernia is evident. No additional contributory finding. IMPRESSION: 1. Fatty liver. 2. Cirrhotic morphology is not identified. 3. Extremely prominent chronic pancreatitis. 4. No acute abnormality seen. RECOMMENDATIONS: 3 mm right solid pulmonary nodule. Per Fleischner Society Guidelines, no routine follow-up imaging is recommended. These guidelines do not apply to immunocompromised patients and patients with cancer. Follow up in patients with significant comorbidities as clinically warranted. For lung cancer screening, adhere to Lung-RADS guidelines. Reference: Radiology. 2017; 284(1):228-43. Interpreted by: Denys Zuñiga MD Preliminary Report By: Denys Zuñiga MD Electronically signed By Denys Zuñiga MD Dictated Date: 03/15/2023 2:50:56 PM Prelim Date: 03/15/2023 3:04:31 PM Sign Date: 03/15/2023 3:04:31 PM Ordering Provider: PEREZ RIBEIRO [facility] ([place]) CT HEAD OR BRAIN W/O CONTRAS Ton 03-15-2023 CT HEAD OR BRAIN W/O CONTRAST ORIGINAL HISTORY: Confusion, drinking COMPARISON: 13 May 2022 TECHNIQUE: Routine non-contrast head CT with sagittal and coronal reconstructions This exam was performed according to our departmental dose optimization program, and includes the following measures where applicable: automated exposure control, adjustment of the mAs and/or kVp according to patient size and/or exam, and an iterative reconstruction algorithm. FINDINGS: There are small to moderate areas of encephalomalacia in the left frontal and occipital lobes and at the right frontoparietal junction. The ventricles and sulci are otherwise mildly to moderately enlarged. There are no abnormal intra or extra-axial fluid collections. There is mild irregular decreased attenuation in the cerebral white matter. The calvaria and the bones of the base of the skull are intact. 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 Otherwise no significant change. Interpreted by: Jamari Love MD Preliminary Report By: Jamari Love MD Electronically signed By Jamari Love MD Dictated Date: 03/15/2023 2:36:08 PM Prelim Date: 03/15/2023 2:37:44 PM Sign Date: 03/15/2023 2:37:44 PM Ordering Provider: PEREZ White [facility] ([place]) CVFLURVon 03-15-2023 FLU A PCR Negative Normal Negative [facility]) Comment on above: Result Comment: Note s 1990 Performed By: #### L RADHA SARGENT MDW, CBC, GFR, CMP, TROPHS, ANEU #### [place] [address] FLU B PCR Negative Normal Negative [facility] ([place]) Comment on above: Result Comment: Note s 1990 Performed By: #### L RADHA SARGENT MDW, CBC, GFR, CMP, TROPHS, ANEU #### [address] [address] RSV PCR Negative Normal Negative [facility] ([place]) Comment on above: Result Comment: Note s 1990 Performed By: #### L RADHA SARGENT MDW, CBC, GFR, CMP, TROPHS, ANEU #### [place] [id number] SARS-CoV-2 (COVID-19) RNA GENEVA+probe Ql (Unsp spec) Negative Normal Negative [facility] ([place]) Comment on above: Result Comment: Note s 1990 This test has been authorized by FDA under an EUA for use by authorized laboratories and has not been FDA cleared or approved. Results from the Xpert Xpress SARS-CoV-2/Flu/RSV or Xpert Xpress SARS-CoV-2 only test should be correlated with the clinical history, epidemiological data, and other data available to the clinician evaluating the patient. Performance of the Xpert Xpress SARS-CoV-2/Flu/RSV or Xpert Xpress SARS-CoV-2 only test has only been established in nasopharyngeal swab specimens. Erroneous test results might occur from improper specimen collection; failure to follow the recommended sample collection, handling, and storage procedures; technical error; or sample mix-up.False negative results may occur if virus is present at levels below the analytical limit of detection. Viral nucleic acid may persist in vivo, independent of virus viability. Detection of analyte target(s) does not imply that the corresponding virus(es) are infectious or are the causative agents for clinical symptoms.Recent patient exposure to FluMist or other live attenuated influenza vaccines may cause inaccurate positive results. Performed By: #### L AC, RADHA, MDW, CBC, GFR, CMP, TROPHS, ANEU #### [place] [address] LABORATORYOrdered By: SYSTEM SYSTEM on 03-15-2023 Ammonia (P) [Moles/Vol] 27 umol/L Normal 11 - 32 mcmol/L ADM SS Comment on above: Result Comment: Spec imen slightly hemolyzed. Albumin BCP dye [Mass/Vol] 2.4 G/dL Low 3.2 - 4.8 G/dL AH ADM SS Albumin/Globulin [Mass ratio] 0.9 {ratio} Normal 0.9 - 1.6 ratio AH ADM SS ALP [Catalytic activity/Vol] 125 U/L Normal 38 - 126 U/L ADM SS ALT No additional P-5'-P [Catalytic activity/Vol] 29 U/L Normal 12 - 55 U/L AH ADM SS AST [Catalytic activity/Vol] 53 U/L High 8 - 34 U/L AH ADM SS Bilirubin [Mass/Vol] mg/dL Normal 0.20 - 1.20 mg/dL AH ADM SS Comment on above: Interpretive Data: U se of this assay is not recommended for patients undergoing treatment with eltrombopag due to the potential for falsely elevated results. Globulin 2.8 G/dL Normal 1.5 - 3.8 G/dL AH ADM SS Monocyte distribution width Auto (Bld) [Entitic vol] 17.99 1 Normal 0.00 - 20.00 Workflow SS Comment on above: Result Comment: For ED adult patients suspected of sepsis, MDW<=20.0 does not rule out sepsis or risk of sepsis Protein [Mass/Vol] 5.2 G/dL Low 5.7 - 8.2 G/dL AH ADM SS Comment on above: Interpretive Data: * *Note - New Reference Range in effect 19 Troponin I.cardiac DL <= 0.01 ng/mL [Mass/Vol] 6.63 ng/L Normal 0.00 - 54.00 ng/L AH ADM SS LABORATORYOrdered By: Kait Ospina on 03-15-2023 Lactate [Moles/Vol] 2.2 mmol/L High 0.2 - 2. 0 mmol/L AH Auto Chem SS LABORATORYOrdered By: Mikey De Los Santos on 03-15-2023 Appearance (U) Clear (03/15/23 1:52 PM) Normal Clear AH Auto Urine SS Bilirubin Ql (U) Negative (03/15/23 1:52 PM) Normal Neg-Trace AH Auto Urine SS Color (U) Yellow (03/15/23 1:52 PM) Normal AH Auto Urine SS Glucose Test strip (U) [Mass/Vol] >=1000 mg/dL Invalid Interpretation Code Negative AH Auto Urine SS Hemoglobin Auto test strip (U) [Mass/Vol] Trace (03/15/23 1:52 PM) Normal Neg-Trace AH Auto Urine SS Ketones Ql (U) Negative Normal Neg-Trace AH Auto Urine SS UA Leuk Est Negative (03/15/23 1:52 PM) Normal Negative AH Auto Urine SS UA Nitrite Negative (03/15/23 1:52 PM) Normal Negative AH Auto Urine SS UA pH 7.0 (03/15/23 1:52 PM) Normal 5.0 - 8.0 AH Auto Urine SS UA Protein Negative Normal Negative AH Auto Urine SS UA Spec Grav <=1.005 *ABN* (03/15/23 1:52 PM) Invalid Interpretation Code 1.006-1.029 AH Auto Urine SS UA Specimen Type Clean Catch (03/15/23 1:52 PM) Normal AH Auto Urine SS UA Urobilinogen 0.2 E.U./dL Normal 0.2-1.0 AH Auto Urine SS LABORATORYOrdered By: Ann-Marie Mandel on 03-15-2023 aPTT Coag (Bld) [Time] 29.7 s Normal 25.0 - 35.0 seconds AH HemoHub SS Comment on above: Interpretive Data: F or Heparin anticoagulation therapy, the recommended therapeutic range is: 54-77 seconds (APTT Correlation with Anti-Xa therapeutic range of 0.3-0.7 units/ml). PLEASE REFERENCE THE PHARMACY PROTOCOL FOR DOSING. Heparin dose (APTT) Unknown (03/15/23 12:03 PM) Normal AH Coagulation S LABORATORYOrdered By: Aramis Cates on 03-15-2023 FLUAV RNA GENEVA+probe Ql (Resp) Negative 11 (03/15/23 11:13 AM) Normal Negative AH Auto Viro/Sero SS Comment on above: Result Comment: Note s 1990 FLUBV RNA GENEVA+probe Ql (Resp) Negative 12 (03/15/23 11:13 AM) Normal Negative AH Auto Viro/Sero SS Comment on above: Result Comment: Note s 1990 RSV PCR Negative 13 (03/15/23 11:13 AM) Normal Negative AH Auto Viro/Sero SS Comment on above: Result Comment: Note s 1990 SARS-CoV-2 (COVID-19) RNA GENEVA+probe Ql (Resp) Negative 9, 10 (03/15/23 11:13 AM) Normal Negative AH Auto Viro/Sero SS Comment on above: Result Comment: Note s 1990 Interpretive Data: T his test has been authorized by FDA under an EUA for use by authorized laboratories and has not been FDA cleared or approved. Results from the Xpert Xpress SARS-CoV-2/Flu/RSV or Xpert Xpress SARS-CoV-2 only test should be correlated with the clinical history, epidemiological data, and other data available to the clinician evaluating the patient. Performance of the Xpert Xpress SARS-CoV-2/Flu/RSV or Xpert Xpress SARS-CoV-2 only test has only been established in nasopharyngeal swab specimens. Erroneous test results might occur from improper specimen collection; failure to follow the recommended sample collection, handling, and storage procedures; technical error; or sample mix-up.False negative results may occur if virus is present at levels below the analytical limit of detection. Viral nucleic acid may persist in vivo, independent of virus viability. Detection of analyte target(s) does not imply that the corresponding virus(es) are infectious or are the causative agents for clinical symptoms.Recent patient exposure to FluMist or other live attenuated influenza vaccines may cause inaccurate positive results. LABORATORYOrdered By: Gogo White on 03-15-2023 Lactate [Moles/Vol] 4.2 mmol/L High 0.2 - 2. 0 mmol/L AH Auto Chem SS LACon 03-15-2023 Lactic Acid Lvl 2.2 mmol/L High 0.2-2.0 [facility] ([place]) Comment on above: Performed By: #### L RADHA SARGENT MDW, CBC, GFR, CMP, TROPHS, ANEU #### [address] [address] Lactic Acid Lvl 4.2 mmol/L High 0.2-2.0 [facility] ([place]) Comment on above: Performed By: #### L RADHA SARGENT MDW, CBC, GFR, CMP, TROPHS, ANEU #### [address] [address] No Panel Informationon 03-15 Culture Urine No growth at 48 hours. [facility] Work Phone: Microscopic examination of blood, culture Culture has been received in lab and is no growth to date. Routine cultures are held for 5 days. [facility] Work Phone: TROPHSon 03-15-2023 Troponin I High Sensitivity 6.63 ng/L Normal 0.00-54.00 [facility] ([place]) Comment on above: Performed By: #### L RADHA SARGENT MDW, CBC, GFR, CMP, TROPHS, ANEU #### [address] [address] UAon 03-15-2023 Color (U) Yellow Normal [facility] ([place]) Comment on above: Performed By: #### RADHA COSTA MDW, CBC, GFR, CMP, TROPHS, ANEU #### [address] [address] Glucose (U) [Mass/Vol] mg/dL Abnormal Negative [facility] ([place]) Comment on above: Performed By: #### RADHA COSTA MDW, CBC, GFR, CMP, TROPHS, ANEU #### [address] [address] Ketones Ql (U) Negative Normal Neg-Trace [facility] ([place]) Comment on above: Performed By: #### L RADHA SARGENT MDW, CBC, GFR, CMP, TROPHS, ANEU #### [address] [address] UA Appear Clear Normal Clear [facility] ([place]) Comment on above: Performed By: #### L RADHA SARGENT MDW, CBC, GFR, CMP, TROPHS, ANEU #### [address] [address] UA Blood Trace Normal Neg-Trace [facility] ([place]) Comment on above: Performed By: #### L RADHA SARGENT MDW, CBC, GFR, CMP, TROPHS, ANEU #### [address] [address] UA Leuk Est Negative Normal Negative [facility] ([place]) Comment on above: Performed By: #### L RADHA SARGENT MDW, CBC, GFR, CMP, TROPHS, ANEU #### [address] [address] UA Nitrite Negative Normal Negative [facility] ([place]) Comment on above: Performed By: #### L RADHA SARGENT MDW, CBC, GFR, CMP, TROPHS, ANEU #### [address] [address] UA pH 7.0 Normal 5.0 - 8.0 [facility] ([place]) Comment on above: Performed By: #### L RADHA SARGENT MDW, CBC, GFR, CMP, TROPHS, ANEU #### [address] [address] UA Protein Negative Normal Negative [facility] ([place]) Comment on above: Performed By: #### L RADHA SARGENT MDW, CBC, GFR, CMP, TROPHS, ANEU #### [address] [address] UA Spec Grav <=1.005 Abnormal 1.006-1.029 [facility] ([place]) Comment on above: Performed By: #### L RADHA SARGENT MDW, CBC, GFR, CMP, TROPHS, ANEU #### [address] [address] UA Specimen Type Clean Catch Normal [facility] ([place]) Comment on above: Performed By: #### L RADHA SARGENT MDW, CBC, GFR, CMP, TROPHS, ANEU #### [address] [address] UA Urobilinogen 0.2 E.U./dL Normal 0.2-1.0 [facility] ([place]) Comment on above: Performed By: #### L RADHA SARGENT MDW, CBC, GFR, CMP, TROPHS, ANEU #### [place] [address] Urobilinogen (U) [Mass/Vol] Negative Normal Neg-Trace [facility] ([place]) Comment on above: Performed By: #### L RADHA SARGENT MDW, CBC, GFR, CMP, TROPHS, ANEU #### [place] [id number] XR CHEST 1 VIEWon 03-15-2023 XR CHEST 1 VIEW ORIGINAL EXAMINATION: ONE XRAY VIEW OF THE CHEST03/15/2023 11:27 am COMPARISON: 05/02/2021 HISTORY: ORDERING SYSTEM PROVIDED HISTORY: Reason for Exam: pain/fever; FINDINGS: 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 There is median sternotomy wires and aortic valvular prosthesis. Right axillary surgical clips are noted. No pneumothorax or pleural effusion. The cardiac silhouette is unchanged. Mild aortic atherosclerosis. There is slightly shallow depth of inspiration with mid and lower lung airspace opacities. No acute osseous abnormality. IMPRESSION: Bilateral mid and lower lung airspace opacities are nonspecific and could be due to atelectasis or infection. Interpreted by: Conrado Donahue DO Preliminary Report By: Conrado Donahue DO Electronically signed By Conrado Donahue DO Dictated Date: 03/15/2023 11:31:57 AM Prelim Date: 03/15/2023 11:32:58 AM Sign Date: 03/15/2023 11:32:58 AM Ordering Provider: PEREZ White [facility] ([place]) Absolute lymphocyte countOrd ered By: Vinh Lomeli on 11-01-2022 Lymphocytes Auto (Unsp spec) [#/Vol] 1.39 10*3/uL 0.83-4.51 [facility] Basophil percentageOrdered B y: Vinh Lomeli on 11-01-2022 Basophils/100 WBC (Bld) 1.1 % 0-1 [facility] Bilirubin [Mass/Vol] 0.40 mg/dL 0.20-1.00 [facility] Comment on above: For patients on eltr ombopag therapy, use of Dim[facility] [place] TBIL is not recommended. Chloride [Moles/Vol] 101 mmol/L 98-107 [facility] Eosinophils/100 WBC (Bld) 1.1 % 0-5 [facility] Glucose [Mass/Vol] 205 mg/dL 74-106 [facility] Comment on above: Glucose result great er than or equal to 200 mg/dLsuggests DIABETES MELLITUS per A.D.A. criteria. Neutrophils (Bld) [#/Vol] 4.4 10*3/uL 2.0-7.7 [facility] Neutrophils/100 WBC (Bld) 67.9 % 47-70 [facility] Potassium [Moles/Vol] 3.1 mmol/L 3.5-5.1 [facility] Protein [Mass/Vol] 6.5 g/dL 6.4-8.2 [facility] Sodium [Moles/Vol] 141 mmol/L 136-145 [facility] WBC (Bld) [#/Vol] 6.5 10*3/uL 4.4-11.0 [facility] Blood erythrocytes count (nu mber/volume)Ordered By: Vinh Lomeli on 11-01-2022 RBC (Bld) [#/Vol] 4.33 10*6/uL 4.6-6.[address] [facility] Blood hemoglobin measurement (mass/volume)Ordered By: Vinh Lomeli on 11-01-2022 Hemoglobin (Bld) [Mass/Vol] 14.1 g/dL 13.0-16.5 [facility] Blood lymphocytes/100 leukoc ytesOrdered By: Vinh Lomeli on 11-01-2022 Lymphocytes/100 WBC (Bld) 21.5 % 19-41 [facility] Blood monocytes/100 leukocyt esOrdered By: Vinh Lomeli on 11-01-2022 Monocytes/100 WBC (Bld) 7.9 % 0-10 [facility] Blood platelet mean volumeOr dered By: Vinh Lomeli on 11-01-2022 Platelet mean volume (Bld) [Entitic vol] 10.7 fL 6.2-12.0 [facility] Determination of erythrocyte mean corpuscular volume (MCV)Ordered By: Vinh Lomeli on 11-01-2022 MCV (RBC) [Entitic vol] 96.8 fL 80-94 [facility] Hematocrit Auto (Bld) [Volum e fraction]Ordered By: Vinh Lomeli on 11-01-2022 Hematocrit (Bld) [Volume fraction] 41.9 % 40-54 [facility] Laboratory - Chemistry and C hemistry - challengeOrdered By: Vinh Lomeli on 11-01-2022 ALP [Catalytic activity/Vol] 196 U/L 45-117 [facility] ALT [Catalytic activity/Vol] 189 U/L 16-61 [facility] CO2 [Moles/Vol] 31.0 mmol/L 21.0-32.0 [facility] Globulin (S) [Mass/Vol] 3.5 g/dL 2.2-4.2 [facility] Lipase [Catalytic activity/Vol] U/L 13-75 [facility] Comment on above: Please note:LIPASE r evised reference range effective 22. New Lipase methodology. Expected to produce lower values than the previous assay method. NEW Reference Range: 13 - 75 U/L Urea nitrogen/Creatinine [Mass ratio] 5.0 mg/mg 10-20 [facility] Laboratory - Hematology and Cell countsOrdered By: Vinh Lomeli on 11-01-2022 Erythrocyte distribution width (RBC) [Entitic vol] 45.1 fL 35.1-43.9 [facility] Erythrocyte distribution width (RBC) [Ratio] 12.5 % 11.6-14.6 [facility] Immature granulocytes/100 WBC (Bld) 0.500 % 0.0-0.9 [facility] Comment on above: IG% - Immature Granu locytes (promyelocytes, myelocytes and metamyelocytes) > 1% indicates that a LEFT SHIFT is Present. MCH (RBC) [Entitic mass] 32.6 pg 27.0-32.0 [facility] Nucleated RBC/100 WBC (Bld) [Ratio] 0 % 0-5 [facility] MCHC Auto (RBC) [Mass/Vol]Or dered By: Vinh Lomeli on 11-01-2022 MCHC (RBC) [Mass/Vol] 33.7 g/dL 32-36 [facility] No Panel InformationOrdered By: Vinh Lomeli on 11-01-2022 Estimated Creatinine Clearance Calc 70.71 ml/min [facility] Estimated GFR (MDRD) Amer 97 mL/min >60 [facility] Comment on above: GFR Calc Estimated GFR (MDRD) Non-Af Amer 80 mL/min >60 [facility] Comment on above: Non- GFR Calc Platelets bldOrdered By: Jasvir Lomeli on 11-01-2022 Platelets (Bld) [#/Vol] 151 10*3/uL 150-450 [facility] Serum or plasma albumin luciana urement (mass/volume)Ordered By: Vinh Lomeli on 11-01-2022 Albumin [Mass/Vol] 3.0 g/dL 3.2-5.0 [facility] Serum or plasma albumin/glob ulin mass ratioOrdered By: Vinh Lomeli on 11-01-2022 Albumin/Globulin [Mass ratio] 0.9 {ratio} 0.9-2.4 [facility] Serum or plasma calcium luciana urement (mass/volume)Ordered By: Vinh Lomeli on 11-01-2022 Calcium [Mass/Vol] 8.5 mg/dL 8.5-10.1 [facility] Serum or plasma creatinine m easurement (mass/volume)Ordered By: Vinh Lomeli on 11-01-2022 Creatinine [Mass/Vol] 1.01 mg/dL 0.70-1.30 [facility] Comment on above: The validity of the calculated GFR & GFRAA in patients over 70 years has not been determined. Clinical correlation is essential. Serum or plasma urea nitroge n measurement (mass/volume)Ordered By: Vinh Lomeli on 11-01-2022 Urea nitrogen [Mass/Vol] 5 mg/dL 7-18 [facility] Thin prep Papanicolaou smear with manual screeningOrdered By: Vinh Lomeli on 11-01-2022 Thin prep Papanicolaou smear with manual screening 434 U/L 15-37 [facility] Thin prep Papanicolaou smear with manual screening 9 5-15 [facility] .Auto Diffon 10-15-2022 Basophil, Absolute 0.1 10 3/mcL Normal 0.0-0.2 [facility] ([place]) Comment on above: Performed By: #### L AC, ADIFF, MDW, CBC, GFR, CMP, TROPHS, ANEU #### [address] [address] Basophils/100 WBC (Bld) 0.8 % Normal 0.0-2.5 [facility] ([place]) Comment on above: Performed By: #### L AC, ADIFF, MDW, CBC, GFR, CMP, TROPHS, ANEU #### [address] [address] Eosinophil, Absolute 0.1 10 3/mcL Normal 0.0-0.4 [facility] ([place]) Comment on above: Performed By: #### L AC, ADIFF, MDW, CBC, GFR, CMP, TROPHS, ANEU #### [address] [address] Eosinophils/100 WBC (Bld) 1.7 % Normal 0.0-7.0 [facility] ([place]) Comment on above: Performed By: #### L AC, ADIFF, MDW, CBC, GFR, CMP, TROPHS, ANEU #### [address] [address] Lymphocyte, Absolute 1.6 10 3/mcL Normal 0.8-3.9 [facility] ([place]) Comment on above: Performed By: #### L AC, ADIFF, MDW, CBC, GFR, CMP, TROPHS, ANEU #### [address] [address] Lymphocytes/100 WBC (Bld) 18.8 % Normal 10.0-50.0 [facility] ([place]) Comment on above: Performed By: #### L AC, ADIFF, MDW, CBC, GFR, CMP, TROPHS, ANEU #### [address] [address] Monocyte, Absolute 0.8 10 3/mcL Normal 0.2-1.0 [facility] ([place]) Comment on above: Performed By: #### L RADHA SARGENT MDW, CBC, GFR, CMP, TROPHS, ANEU #### [facility] [address] [place] [address] Monocytes/100 WBC (Bld) 9.4 % Normal 1.7-13.0 [facility] ([place]) Comment on above: Performed By: #### L RADHA SARGENT MDW, CBC, GFR, CMP, TROPHS, ANEU #### [facility] [address] [place] [address] Neutrophils/100 WBC (Bld) 69.3 % Normal 37.0-80.0 [facility] ([place]) Comment on above: Performed By: #### L RADHA SARGENT MDW, CBC, GFR, CMP, TROPHS, ANEU #### [address] [address] .GFRon 10-15-2022 GFR 79 ml/min/1.73sqm Normal [facility] ([place]) Comment on above: Result Comment: GFR Population mean for , [...] 15 mL/min/1.73 square meters Performed By: #### L RADHA SARGENT MDW, CBC, GFR, CMP, TROPHS, ANEU #### [address] [address] GFR Non- 66 ml/min/1.73sqm Normal [facility] ([place]) Comment on above: Result Comment: GFR Population mean for , [...] 15 mL/min/1.73 square meters Performed By: #### L RADHA SARGENT MDW, CBC, GFR, CMP, TROPHS, ANEU #### [place] [address] .NEUABSon 10-15-2022 Neutrophil, Absolute 5.9 10 3/mcL Normal 2.9-6.2 [facility] ([place]) Comment on above: Performed By: #### L RADHA SARGENT MDW, CBC, GFR, CMP, TROPHS, ANEU #### [place] [address] A1Con 10-15-2022 HbA1c (Bld) [Mass fraction] 7.9 % High 4.3-6.4 [facility] ([place]) Comment on above: Performed By: #### RADHA COSTA MDW, CBC, GFR, CMP, TROPHS, ANEU #### [place] [address] CBCon 10-15-2022 Erythrocyte distribution width (RBC) [Ratio] 13.4 % Normal 11.5-14.5 [facility] ([place]) Comment on above: Performed By: #### RADHA COSTA MDW, CBC, GFR, CMP, TROPHS, ANEU #### [place] [address] Hematocrit (Bld) [Volume fraction] 42.6 % Normal 42.0-52.0 [facility] ([place] Comment on above: Performed By: #### RADHA COSTA MDW, CBC, GFR, CMP, TROPHS, ANEU #### [place] [address] Hgb 14.0 G/dL Normal 14.0-18.0 [facility] ([place]) Comment on above: Performed By: #### L RADHA SARGENT MDW, CBC, GFR, CMP, TROPHS, ANEU #### [place] [address] MCH (RBC) [Entitic mass] 33.0 pg High 27.0-31.2 [facility] ([place]) Comment on above: Performed By: #### L RADHA SARGENT MDW, CBC, GFR, CMP, TROPHS, ANEU #### [place] [address] MCHC 33.0 G/dL Normal 31.8-35.4 [facility] ([place]) Comment on above: Performed By: #### L RADHA SARGENT MDW, CBC, GFR, CMP, TROPHS, ANEU #### [place] [address] MCV (RBC) [Entitic vol] 100.1 fL High 80.0-94.0 [facility] ([place]) Comment on above: Performed By: #### L RADHA SARGENT MDW, CBC, GFR, CMP, TROPHS, ANEU #### [place] [address] Platelet 184 10 3/mcL Normal 130-400 [facility] ([place]) Comment on above: Performed By: #### L RADHA SARGENT MDW, CBC, GFR, CMP, TROPHS, ANEU #### [place] [address] Platelet mean volume (Bld) [Entitic vol] 10.1 fL Normal 7.4-10.4 [facility] ([place] Comment on above: Performed By: #### L RADHA SARGENT MDW, CBC, GFR, CMP, TROPHS, ANEU #### [place] [address] RBC 4.26 10 6/mcL Normal 4.04-6.13 [facility] ([place]) Comment on above: Performed By: #### L RADHA SARGENT MDW, CBC, GFR, CMP, TROPHS, ANEU #### [address] [address] WBC 8.5 10 3/mcL Normal 4.6-10.8 [facility] ([place]) Comment on above: Performed By: #### L RADHA SARGENT MDW, CBC, GFR, CMP, TROPHS, ANEU #### [address] [address] CMPon 10-15-2022 Albumin Level 3.7 G/dL Normal 3.4-4.8 [facility] ([place]) Comment on above: Performed By: #### L RADHA SARGENT MDW, CBC, GFR, CMP, TROPHS, ANEU #### [place] [address] Albumin/Globulin [Mass ratio] 1.0 {ratio} Low 1.1-2.5 [facility] ([place] Comment on above: Performed By: #### L RADHA SARGENT MDW, CBC, GFR, CMP, TROPHS, ANEU #### [address] [address] ALP [Catalytic activity/Vol] 148 U/L High 40-135 [facility] ([place] Comment on above: Performed By: #### L RADHA SARGENT MDW, CBC, GFR, CMP, TROPHS, ANEU #### [address] [address] ALT [Catalytic activity/Vol] 49 U/L Normal 16-63 [facility] ([place] Comment on above: Performed By: #### L RADHA SARGENT MDW, CBC, GFR, CMP, TROPHS, ANEU #### [address] [address] AST [Catalytic activity/Vol] 53 U/L High 10-40 [facility] ([place] Comment on above: Performed By: #### L RADHA SARGENT MDW, CBC, GFR, CMP, TROPHS, ANEU #### [place] [id number] Bili Total 0.4 mg/dL Normal 0.2-1.0 [facility] ([place] Comment on above: Result Comment: Use of this assay is not recommended for patients undergoing treatment with eltrombopag due to the potential for falsely elevated results. Performed By: #### L RADHA SARGENT MDW, CBC, GFR, CMP, TROPHS, ANEU #### [place] [id number] BUN/Creatinine Ratio 10 ratio Normal 7-27 [facility] ([place]) Comment on above: Performed By: #### L RADHA SARGENT MDW, CBC, GFR, CMP, TROPHS, ANEU #### [place] [phone] Calcium [Mass/Vol] 9.3 mg/dL Normal 8.4-10.2 [facility] ([place]) Comment on above: Performed By: #### L RADHA SARGENT MDW, CBC, GFR, CMP, TROPHS, ANEU #### [place] [phone] Chloride [Moles/Vol] 104 mmol/L Normal 98-107 [facility] ([place] Comment on above: Performed By: #### L RADHA SARGENT MDW, CBC, GFR, CMP, TROPHS, ANEU #### [place] [phone] CO2 [Moles/Vol] 23 mmol/L Normal 23-31 [facility] ([place] Comment on above: Performed By: #### L RADHA SARGENT MDW, CBC, GFR, CMP, TROPHS, ANEU #### [address] [address] Creatinine [Mass/Vol] 1.14 mg/dL Normal 0.70-1.30 [facility] ([place]) Comment on above: Performed By: #### L RADHA SARGENT MDW, CBC, GFR, CMP, TROPHS, ANEU #### [address] [address] Electrolyte Balance 11.0 mEq/L Normal 4.0-15.0 [facility] ([place]) Comment on above: Performed By: #### L RADHA SARGENT MDW, CBC, GFR, CMP, TROPHS, ANEU #### [address] [address] Globulin 3.6 G/dL Normal [facility] ([place] Comment on above: Performed By: #### L RADHA SARGENT MDW, CBC, GFR, CMP, TROPHS, ANEU #### [address] [address] Glucose [Mass/Vol] 205 mg/dL High 80-115 [facility] ([place] Comment on above: Performed By: #### L RADHA SARGENT MDW, CBC, GFR, CMP, TROPHS, ANEU #### [place] [phone] Potassium [Moles/Vol] 5.0 mmol/L Normal 3.5-5.1 [facility] ([place] Comment on above: Performed By: #### L RADHA SARGENT MDW, CBC, GFR, CMP, TROPHS, ANEU #### [place] [address] Sodium [Moles/Vol] 138 mmol/L Normal 136-145 [facility] ([place] Comment on above: Performed By: #### L RADHA SARGENT MDW, CBC, GFR, CMP, TROPHS, ANEU #### [address] [address] Total Protein 7.3 G/dL Normal 6.4-8.2 [facility] ([place] Comment on above: Performed By: #### RADHA COSTA MDW, CBC, GFR, CMP, TROPHS, ANEU #### [address] [address] Urea nitrogen [Mass/Vol] 11 mg/dL Normal 7-18 [facility] ([place] Comment on above: Performed By: #### L RADHA SARGENT MDW, CBC, GFR, CMP, TROPHS, ANEU #### [address] [address] CPEPon 10-15-2022 C-Peptide 1.09 ng/mL Normal 0.81-3.85 [facility] ([place] Comment on above: Order Comment: +/-28 days Performed By: #### L RADHA SARGENT MDW, CBC, GFR, CMP, TROPHS, ANEU #### [address] [address] LABORATORYOrdered By: Mehran Lee on 10-15-2022 Blood Glucose Frequency Other: Multiple times per day [facility] Work Phone: LIPIDon 10-15-2022 Cholesterol [Mass/Vol] 116 mg/dL Normal 0-200 [facility] ([place]) Comment on above: Result Comment: Chol esterol Reference Interval: Less than 200 Desirable 200-239 Borderline high risk 240 and above High risk Performed By: #### L RADHA SARGENT MDW, CBC, GFR, CMP, TROPHS, ANEU #### [address] [address] Cholesterol in HDL [Mass/Vol] 40 mg/dL Normal 40-60 [facility] ([place] Comment on above: Performed By: #### L RADHA SARGENT MDW, CBC, GFR, CMP, TROPHS, ANEU #### [address] [address] Cholesterol in LDL [Mass/Vol] 59 mg/dL Normal 0-130 [facility] ([place] Comment on above: Performed By: #### RADHA COSTA MDW, CBC, GFR, CMP, TROPHS, ANEU #### [address] [address] Triglyceride [Mass/Vol] 83 mg/dL Normal 0-150 [facility] ([place]) Comment on above: Result Comment: Trig lyceride Reference Interval: Less than 150 Normal 150-199 Borderline high risk 200-499 High risk 500 or higher Very high risk Performed By: #### RADHA COSTA MDW, CBC, GFR, CMP, TROPHS, ANEU #### [address] [address] VIDHon 10-15-2022 Vit. D 25-Hydroxy 37.4 ng/mL Normal [facility] ([place] Comment on above: Result Comment: Inte rpretive Values Based on Total 25(OH) Vitamin D: Deficient <20 ng/mL Insufficient 20 - <30 ng/mL Sufficient 30-100 ng/mL Performed By: #### L RADHA SARGENT MDW, CBC, GFR, CMP, TROPHS, ANEU #### [address] [address] .Auto Diffon 10-05-2022 Basophil, Absolute 0.1 10 3/mcL Normal 0.0-0.2 [facility] ([place]) Comment on above: Performed By: #### L RADHA SARGENT MDW, CBC, GFR, CMP, TROPHS, ANEU #### [address] [address] Basophils/100 WBC (Bld) 1.2 % Normal 0.0-2.5 [facility] ([place]) Comment on above: Performed By: #### L RADHA SARGENT MDW, CBC, GFR, CMP, TROPHS, ANEU #### [address] [address] Eosinophil, Absolute 0.2 10 3/mcL Normal 0.0-0.4 [facility] ([place]) Comment on above: Performed By: #### L RADHA SARGENT MDW, CBC, GFR, CMP, TROPHS, ANEU #### [address] [address] Eosinophils/100 WBC (Bld) 2.5 % Normal 0.0-7.0 [facility] ([place]) Comment on above: Performed By: #### RADHA COSTA MDW, CBC, GFR, CMP, TROPHS, ANEU #### [address] [address] Lymphocyte, Absolute 1.4 10 3/mcL Normal 0.8-3.9 [facility] ([place]) Comment on above: Performed By: #### L RADHA SARGENT MDW, CBC, GFR, CMP, TROPHS, ANEU #### [address] [address] Lymphocytes/100 WBC (Bld) 18.6 % Normal 10.0-50.0 [facility] ([place]) Comment on above: Performed By: #### L RADHA SARGENT MDW, CBC, GFR, CMP, TROPHS, ANEU #### [address] [address] Monocyte, Absolute 0.6 10 3/mcL Normal 0.2-1.0 [facility] ([place]) Comment on above: Performed By: #### L BELLE, RADHA, W, CBC, GFR, CMP, TROPHS, ANEU #### [address] [address] Monocytes/100 WBC (Bld) 7.8 % Normal 1.7-13.0 [facility] ([place]) Comment on above: Performed By: #### L RADHA SARGENT MDW, CBC, GFR, CMP, TROPHS, ANEU #### [address] [address] Neutrophils/100 WBC (Bld) 69.9 % Normal 37.0-80.0 [facility] ([place] Comment on above: Performed By: #### L RADHA SARGENT, W, CBC, GFR, CMP, TROPHS, ANEU #### [address] [address] .GFRon 10-05-2022 GFR Non- 69 ml/min/1.73sqm Normal [facility] ([place] Comment on above: Result Comment: GFR Population mean for , [...] 15 mL/min/1.73 square meters Performed By: #### L AC, RADHA, W, CBC, GFR, CMP, TROPHS, ANEU #### [address] [address] GFR 84 ml/min/1.73sqm Normal [facility] ([place]) Comment on above: Result Comment: GFR Population mean for , [...] 15 mL/min/1.73 square meters Performed By: #### L RAHDA SARGENT MDW, CBC, GFR, CMP, TROPHS, ANEU #### [place] [address] .MDWon 10-05-2022 Monocyte Distribution Width 16.07 Normal 0.00-20.00 [facility] ([place] Comment on above: Result Comment: For ED adult patients suspected of sepsis, MDW<=20.0 does not rule out sepsis or risk of sepsis Performed By: #### L RADHA SARGENT MDW, CBC, GFR, CMP, TROPHS, ANEU #### [place] [address] .NEUABSon 10-05-2022 Neutrophil, Absolute 5.4 10 3/mcL Normal 2.9-6.2 [facility] ([place]) Comment on above: Performed By: #### L RADHA SARGENT MDW, CBC, GFR, CMP, TROPHS, ANEU #### [place] [address] CBCon 10-05-2022 Erythrocyte distribution width (RBC) [Ratio] 13.6 % Normal 11.5-14.5 [facility] ([place]) Comment on above: Performed By: #### L RADHA SARGENT MDW, CBC, GFR, CMP, TROPHS, ANEU #### [facility] [address] [place], [place] [address] Hematocrit (Bld) [Volume fraction] 44.2 % Normal 42.0-52.0 [facility] ([place] Comment on above: Performed By: #### L RADHA SARGENT MDW, CBC, GFR, CMP, TROPHS, ANEU #### [place] [id number] Hgb 14.9 G/dL Normal 14.0-18.0 [facility] ([place] Comment on above: Performed By: #### L RADHA SARGENT MDW, CBC, GFR, CMP, TROPHS, ANEU #### [place] [address] MCH (RBC) [Entitic mass] 33.5 pg High 27.0-31.2 [facility] ([place] Comment on above: Performed By: #### L RADHA SARGENT MDW, CBC, GFR, CMP, TROPHS, ANEU #### [place] [address] MCHC 33.6 G/dL Normal 31.8-35.4 [facility] ([place] Comment on above: Performed By: #### L RADHA SARGENT MDW, CBC, GFR, CMP, TROPHS, ANEU #### [place] [address] MCV (RBC) [Entitic vol] 99.6 fL High 80.0-94.0 [facility] ([place] Comment on above: Performed By: #### L RADHA SARGENT MDW, CBC, GFR, CMP, TROPHS, ANEU #### [place] [address] Platelet 202 10 3/mcL Normal 130-400 [facility] ([place] Comment on above: Performed By: #### L RADHA SARGENT MDW, CBC, GFR, CMP, TROPHS, ANEU #### [place] [address] Platelet mean volume (Bld) [Entitic vol] 9.2 fL Normal 7.4-10.4 [facility] ([place] Comment on above: Performed By: #### L RADHA SARGENT MDW, CBC, GFR, CMP, TROPHS, ANEU #### [address] [address] RBC 4.44 10 6/mcL Normal 4.04-6.13 [facility] ([place] Comment on above: Performed By: #### L RADHA SARGENT MDW, CBC, GFR, CMP, TROPHS, ANEU #### [address] [address] WBC 7.7 10 3/mcL Normal 4.6-10.8 [facility] ([place] Comment on above: Performed By: #### L RADHA SARGENT MDW, CBC, GFR, CMP, TROPHS, ANEU #### [address] [address] CMPon 10-05-2022 Albumin Level 3.6 G/dL Normal 3.4-4.8 [facility] ([place] Comment on above: Performed By: #### L RADHA SARGENT MDW, CBC, GFR, CMP, TROPHS, ANEU #### [address] [address] Albumin/Globulin [Mass ratio] 1.0 {ratio} Low 1.1-2.5 [facility] ([place] Comment on above: Performed By: #### L RADHA SARGENT MDW, CBC, GFR, CMP, TROPHS, ANEU #### [address] [address] ALP [Catalytic activity/Vol] 144 U/L High 40-135 [facility] ([place] Comment on above: Performed By: #### L RADHA SARGENT MDW, CBC, GFR, CMP, TROPHS, ANEU #### [address] [address] ALT [Catalytic activity/Vol] 65 U/L High 16-63 [facility] ([place] Comment on above: Performed By: #### L RADHA SARGENT MDW, CBC, GFR, CMP, TROPHS, ANEU #### [address] [address] AST [Catalytic activity/Vol] 59 U/L High 10-40 [facility] ([place] Comment on above: Performed By: #### L RADHA SARGENT MDW, CBC, GFR, CMP, TROPHS, ANEU #### [address] [address] Bili Total 0.3 mg/dL Normal 0.2-1.0 [facility] ([place] Comment on above: Result Comment: Use of this assay is not recommended for patients undergoing treatment with eltrombopag due to the potential for falsely elevated results. Performed By: #### L RADHA SARGENT MDW, CBC, GFR, CMP, TROPHS, ANEU #### [address] [address] BUN/Creatinine Ratio 7 ratio Normal 7-27 [facility] ([place] Comment on above: Performed By: #### L RADHA SARGENT MDW, CBC, GFR, CMP, TROPHS, ANEU #### [address] [address] Calcium [Mass/Vol] 9.1 mg/dL Normal 8.4-10.2 [facility] ([place]) Comment on above: Performed By: #### L RADHA SARGENT MDW, CBC, GFR, CMP, TROPHS, ANEU #### [address] [address] Chloride [Moles/Vol] 103 mmol/L Normal 98-107 [facility] ([place] Comment on above: Performed By: #### L RADHA SAGRENT MDW, CBC, GFR, CMP, TROPHS, ANEU #### [address] [address] CO2 [Moles/Vol] 24 mmol/L Normal 23-31 [facility] ([place] Comment on above: Performed By: #### L RADHA SARGENT MDW, CBC, GFR, CMP, TROPHS, ANEU #### [address] [address] Creatinine [Mass/Vol] 1.09 mg/dL Normal 0.70-1.30 [facility] ([place]) Comment on above: Performed By: #### L RADHA SARGENT MDW, CBC, GFR, CMP, TROPHS, ANEU #### [address] [address] Electrolyte Balance 11.0 mEq/L Normal 4.0-15.0 [facility] ([place]) Comment on above: Performed By: #### L RADHA SARGENT MDW, CBC, GFR, CMP, TROPHS, ANEU #### [address] [address] Globulin 3.6 G/dL Normal [facility] ([place] Comment on above: Performed By: #### L RADHA SARGENT MDW, CBC, GFR, CMP, TROPHS, ANEU #### [address] [address] Glucose [Mass/Vol] 257 mg/dL High 80-115 [facility] ([place] Comment on above: Performed By: #### L RADHA SARGENT MDW, CBC, GFR, CMP, TROPHS, ANEU #### [place] [phone] Potassium [Moles/Vol] 4.3 mmol/L Normal 3.5-5.1 [facility] ([place]) Comment on above: Performed By: #### L RADHA SARGENT MDW, CBC, GFR, CMP, TROPHS, ANEU #### [place] [phone] Sodium [Moles/Vol] 138 mmol/L Normal 136-145 [facility] ([place] Comment on above: Performed By: #### L RADHA SARGENT MDW, CBC, GFR, CMP, TROPHS, ANEU #### [address] [address] Total Protein 7.2 G/dL Normal 6.4-8.2 [facility] ([place] Comment on above: Performed By: #### RADHA COSTA MDW, CBC, GFR, CMP, TROPHS, ANEU #### [address] [address] Urea nitrogen [Mass/Vol] 8 mg/dL Normal 7-18 [facility] ([place] Comment on above: Performed By: #### L RADHA SARGENT MDW, CBC, GFR, CMP, TROPHS, ANEU #### [place] [id number] [address] [place] [address] CT ANGIO CHEST W+W/O CONTRAS T DISSECTIONon 10-05-2022 CT ANGIO CHEST W+W/O CONTRAST DISSECTION ORIGINAL EXAMINATION: CTA OF THE CHEST WITH AND WITHOUT CONTRAST10/05/2022 3:27 pm CTA CHEST WITH AND WITHOUT CONTRAST TECHNIQUE: CTA of the chest was performed before and after the administration of intravenous contrast. Multiplanar reformatted images are provided for review. MIP images are provided for review. Automated exposure control, iterative reconstruction, and/or weight based adjustment of the mA/kV was utilized to reduce the radiation dose to as low as reasonably achievable. CTA of the thorax was acquired in the axial plane. Coronal and sagittal reformatted images were reviewed. Three dimensional reconstructions were created on a separate workstation. COMPARISON: 12/14/2018 HISTORY: ORDERING SYSTEM PROVIDED HISTORY: Reason for Exam: chest pain FINDINGS: There is no evidence of pleural effusion or pneumothorax. No airspace or interstitial lung disease is identified. Bandlike scarring/atelectasis is again identified within the lingula. Tracheobronchial tree contains a small amount of retained mucus in the distal bronchus but no definite endobronchial lesion is identified. There is no evidence of new pulmonary nodule. Rounded subpleural 3 mm right middle lobe pulmonary nodule on slice 89 is not significantly changed. Pre contrast imaging reveals aortic valve prosthesis. There is no evidence of new displaced intimal calcification with curvilinear calcification again noted in the ascending aortic dissection described on prior imaging. Post-contrast enhanced imaging reveals ascending thoracic aortic aneurysm with a maximal AP diameter of 4.6 cm as compared to 4.2 cm on the prior examination. Dissecting aortic flap is again identified extending from the distal ascending thoracic aorta to the distal aortic arch and is best seen on axial images 30 through 39. The proximal portion of the dissection is thrombosed but the aortic flap is otherwise unchanged from 03/09/2016. There is no evidence of pericardial or mediastinal effusion.. There is no evidence of central pulmonary arterial emboli. There is no evidence of descending or upper abdominal aortic dissection. No enlarged mediastinal or hilar lymph nodes are identified. The adrenal glands are not enlarged. There is diffuse low-attenuation of the hepatic parenchyma consistent with fatty infiltration. Bone windows reveal no evidence of acute fracture or osteolytic/osteoblastic lesion. Post CABG changes are again identified. IMPRESSION: Ascending thoracic aortic aneurysm with a maximal AP diameter 4.6 cm as compared to 4.2 cm on 12/14/2018. Ascending thoracic aortic dissection extending into the aortic arch is again identified and was present on 03/09/2016. There has been interval thrombus formation within the proximal false lumen but the dissection has not increased in size and there is no evidence of pericardial or mediastinal hematoma. Findings consistent with hepatic steatosis. Interpreted by: David Herndon Preliminary Report By: David Herndon Electronically signed By David Herndon Dictated Date: 10/05/2022 3:30:27 PM Prelim Date: 10/05/2022 3:45:22 PM Sign Date: 10/05/2022 3:45:22 PM Ordering Provider: MAGDALENA NICKERSON [facility] ([place]) LABORATORYOrdered By: SYSTEM SYSTEM on 10-05-2022 Albumin BCP dye [Mass/Vol] 3.6 G/dL Invalid Interpretation Code 3.4 - 4.8 G/dL AO ADM SS Albumin/Globulin [Mass ratio] 1.0 {ratio} Invalid Interpretation Code 1.1 - 2.5 ratio AO ADM SS ALP [Catalytic activity/Vol] 144 U/L Invalid Interpretation Code 40 - 135 U/L AO ADM SS ALT With P-5'-P [Catalytic activity/Vol] 65 U/L Invalid Interpretation Code 16 - 63 U/L AO ADM SS AST With P-5'-P [Catalytic activity/Vol] 59 U/L Invalid Interpretation Code 10 - 40 U/L AO ADM SS Basophil, Absolute 0.1 103/mcL Invalid Interpretation Code 0.0 - 0.2 10^3/mcL AO Workflow SS Basophils/100 WBC (Bld) 1.2 % Invalid Interpretation Code 0.0 - 2.5 % AO Workflow SS Bilirubin [Mass/Vol] 0.3 mg/dL Invalid Interpretation Code 0.2 - 1.0 mg/dL AO ADM SS Comment on above: Interpretive Data: U se of this assay is not recommended for patients undergoing treatment with eltrombopag due to the potential for falsely elevated results. Calcium [Mass/Vol] 9.1 mg/dL Invalid Interpretation Code 8.4 - 10.2 mg/dL AO ADM SS Chloride [Moles/Vol] 103 mmol/L Invalid Interpretation Code 98 - 107 mmol/L AO ADM SS CO2 [Moles/Vol] 24 mmol/L Invalid Interpretation Code 23 - 31 mmol/L AO ADM SS Creatinine [Mass/Vol] 1.09 mg/dL Invalid Interpretation Code 0.70 - 1.30 mg/dL AO ADM SS Electrolyte Balance 11.0 mEq/L Invalid Interpretation Code 4.0 - 15.0 mEq/L AO ADM SS Eosinophil, Absolute 0.2 103/mcL Invalid Interpretation Code 0.0 - 0.4 10^3/mcL AO Workflow SS Eosinophils/100 WBC (Bld) 2.5 % Invalid Interpretation Code 0.0 - 7.0 % AO Workflow SS Erythrocyte distribution width (RBC) [Ratio] 13.6 % Invalid Interpretation Code 11.5 - 14.5 % AO Workflow SS GFR/1.73 sq M.predicted among blacks MDRD (S/P/Bld) [Vol rate/Area] 84 ml/min/1.73sqm Invalid Interpretation Code AO Chemistry S Comment on above: Interpretive Data: GFR Population mean for , Non- Americans Ages 20-29 = 116 mL/min/1.73 sq.m. Ages 30-39 = 107 mL/min/1.73 sq.m. Ages 40-49 = 99 mL/min/1.73 sq.m. Ages 50-59 = 93 mL/min/1.73 sq.m. Ages 60-69 = 85 mL/min/1.73 sq.m. Ages 70+ = 75 mL/min/1.73 sq.m. Chronic Kidney Disease: Less than 60 mL/min/1.73 square meters End Stage Renal Disease: Less than 15 mL/min/1.73 square meters GFR/1.73 sq M.predicted among non-blacks MDRD (S/P/Bld) [Vol rate/Area] 69 ml/min/1.73sqm Invalid Interpretation Code AO Chemistry S Comment on above: Interpretive Data: GFR Population mean for , Non- Americans Ages 20-29 = 116 mL/min/1.73 sq.m. Ages 30-39 = 107 mL/min/1.73 sq.m. Ages 40-49 = 99 mL/min/1.73 sq.m. Ages 50-59 = 93 mL/min/1.73 sq.m. Ages 60-69 = 85 mL/min/1.73 sq.m. Ages 70+ = 75 mL/min/1.73 sq.m. Chronic Kidney Disease: Less than 60 mL/min/1.73 square meters End Stage Renal Disease: Less than 15 mL/min/1.73 square meters Globulin 3.6 G/dL Invalid Interpretation Code AO ADM SS Glucose [Mass/Vol] 257 mg/dL Invalid Interpretation Code 80 - 115 mg/dL AO ADM SS Hematocrit (Bld) [Volume fraction] 44.2 % Invalid Interpretation Code 42.0 - 52.0 % AO Workflow SS Hemoglobin (Bld) [Mass/Vol] 14.9 G/dL Invalid Interpretation Code 14.0 - 18.0 G/dL AO Workflow SS Lipase [Catalytic activity/Vol] U/L 1 Invalid Interpretation Code 16 - 77 U/L AO ADM SS Lymphocyte, Absolute 1.4 103/mcL Invalid Interpretation Code 0.8 - 3.9 10^3/mcL AO Workflow SS Lymphocytes/100 WBC (Bld) 18.6 % Invalid Interpretation Code 10.0 - 50.0 % AO Workflow SS MCH (RBC) [Entitic mass] 33.5 pg Invalid Interpretation Code 27.0 - 31.2 pg AO Workflow SS MCHC 33.6 G/dL Invalid Interpretation Code 31.8 - 35.4 G/dL AO Workflow SS MCV (RBC) [Entitic vol] 99.6 fL Invalid Interpretation Code 80.0 - 94.0 fL AO Workflow SS Monocyte distribution width Auto (Bld) [Entitic vol] 16.07 1 Invalid Interpretation Code 0.00 - 20.00 AO Workflow SS Comment on above: Result Comment: For ED adult patients suspected of sepsis, MDW<=20.0 does not rule out sepsis or risk of sepsis Monocyte, Absolute 0.6 103/mcL Invalid Interpretation Code 0.2 - 1.0 10^3/mcL AO Workflow SS Monocytes/100 WBC (Bld) 7.8 % Invalid Interpretation Code 1.7 - 13.0 % AO Workflow SS Neutrophil, Absolute 5.4 103/mcL Invalid Interpretation Code 2.9 - 6.2 10^3/mcL AO Workflow SS Neutrophils/100 WBC (Bld) 69.9 % Invalid Interpretation Code 37.0 - 80.0 % AO Workflow SS Platelet mean volume (Bld) [Entitic vol] 9.2 fL Invalid Interpretation Code 7.4 - 10.4 fL AO Workflow SS Platelets (Bld) [#/Vol] 202 103/mcL Invalid Interpretation Code 130 - 400 10^3/mcL AO Workflow SS Potassium [Moles/Vol] 4.3 mmol/L Invalid Interpretation Code 3.5 - 5.1 mmol/L AO ADM SS Protein [Mass/Vol] 7.2 G/dL Invalid Interpretation Code 6.4 - 8.2 G/dL AO ADM SS RBC (Bld) [#/Vol] 4.44 106/mcL Invalid Interpretation Code 4.04 - 6.13 10^6/mcL AO Workflow SS Sodium [Moles/Vol] 138 mmol/L Invalid Interpretation Code 136 - 145 mmol/L AO ADM SS Troponin I.cardiac DL <= 0.01 ng/mL [Mass/Vol] 30.7 ng/L Invalid Interpretation Code 0.0 - 76.2 ng/L AO ADM SS Urea nitrogen [Mass/Vol] 8 mg/dL Invalid Interpretation Code 7 - 18 mg/dL AO ADM SS Urea nitrogen/Creatinine [Mass ratio] 7 ratio Invalid Interpretation Code 7 - 27 ratio AO ADM SS WBC (Bld) [#/Vol] 7.7 103/mcL Invalid Interpretation Code 4.6 - 10.8 10^3/mcL AO Workflow SS LIPon 10-05-2022 Lipase Level <10 Low 16-77 [facility] ([place] Comment on above: Performed By: #### L RADHA SARGENT MDW, CBC, GFR, CMP, TROPHS, ANEU #### [place] [address] TROPHSon 10-05-2022 Troponin I High Sensitivity 30.7 ng/L Normal 0.0-76.2 [facility] ([place] Comment on above: Performed By: #### L RADHA SARGENT MDW, CBC, GFR, CMP, TROPHS, ANEU #### [address] [address] XR UPPER GIon 09-22-2022 XR UPPER GI ORIGINAL EXAMINATION: DOUBLE CONTRAST UPPER GI SERIES09/22/2022 10:01 am UGI W/ AIR CONTRAST TECHNIQUE: Fluoroscopic time: 155 seconds Total dose (Reference Air Kerma): 52.8 MGy Number of fluoroscopic images: 54 Number of radiographs: None COMPARISON: None HISTORY: ORDERING SYSTEM PROVIDED HISTORY: Reason for Exam: epigastric pain with reflux FINDINGS: The swallowing mechanism is not evaluated. The thoracic esophagus shows normal distensibility and mucosal pattern. No fixed narrowing, mass or ulceration is seen. No significant esophageal dysmotility. No obvious hiatal hernia. A small amount of gastroesophageal reflux is seen. There is slight irregularity of mucosa at the GE junction seen on only a couple of images. No fixed narrowing. The stomach is poorly distended and shows marked thickening of the rugal folds. Gastric emptying is prompt. A discrete ulceration or mass is not seen within these constraints. The duodenal bulb is normal in morphology with no deformity or obvious ulceration. IMPRESSION: There is marked thickening of the gastric rugal folds that is probably from gastritis. There is lack of gastric distension and the possibility of infiltrative submucosal process causing linitis plastica is not excluded. There is also some mucosal irregularity at the GE junction. These findings should be evaluated further with endoscopy. Interpreted by: Ino Batista MD Preliminary Report By: Ino Batista MD Electronically signed By Ino Batista MD Dictated Date: 09/22/2022 1:49:19 PM Prelim Date: 09/22/2022 3:40:06 PM Sign Date: 09/22/2022 3:40:06 PM Ordering Provider: ANDREAS White [facility] ([place]) LABORATORYOrdered By: Samantha panda on 09-17-2022 Glucose [Mass/Vol] 257 mg/dL High 82 - 115 mg/dL [facility] Work Phone: HbA1c (Bld) [Mass fraction] 8.5 % [facility] Work Phone: Lab Performed By Samantha Huber PharmD [facility] Work Phone: Lab Performing Location [facility] Work Phone: Laboratory - Chemistry and C hemistry - challengeOrdered By: Ti Robbins on 08-15-2022 Glucose [Mass/Vol] 353 mg/dL High 82 - 115 mg/dL [facility] Work Phone: Glucose Glucometer (BldC) [M ass/Vol]Ordered By: Sinan Abarca on 07-21-2022 Glucose [Mass/Vol] 166 mg/dL 74-106 [facility] Comment on above: MANAGEMENT OF PATIEN T CARE PER NURSING PROTOCOL Absolute lymphocyte countOrd ered By: Sinan Abarca on 07-20-2022 Lymphocytes Auto (Unsp spec) [#/Vol] 1.83 10*3/uL 0.83-4.51 [facility] Basophil percentageOrdered B y: Sinan Abarca on 07-20-2022 Potassium [Moles/Vol] 3.2 mmol/L 3.5-5.1 [facility] Basophil percentage 0 SEEN /hpf 0-5 [facility] Basophils/100 WBC (Bld) 2.1 % 0-1 [facility] Bilirubin [Mass/Vol] 0.20 mg/dL 0.20-1.00 [facility] Comment on above: For patients on eltr ombopag therapy, use of Dimension [place] TBIL is not recommended. Chloride [Moles/Vol] 97 mmol/L 98-107 [facility] Eosinophils/100 WBC (Bld) 4.2 % 0-5 [facility] Glucose [Mass/Vol] 381 mg/dL 74-106 [facility] Comment on above: Glucose result great er than or equal to 200 mg/dLsuggests DIABETES MELLITUS per A.D.A. criteria. Neutrophils (Bld) [#/Vol] 2.1 10*3/uL 2.0-7.7 [facility] Neutrophils/100 WBC (Bld) 43.9 % 47-70 [facility] Protein [Mass/Vol] 6.3 g/dL 6.4-8.2 [facility] Sodium [Moles/Vol] 144 mmol/L 136-145 [facility] WBC (Bld) [#/Vol] 4.7 10*3/uL 4.4-11.0 [facility] Bilirubin Test strip Ql (U)O rdered By: Sinan Abarca on 07-20-2022 Bilirubin Ql (U) Negative Negative [facility] Blood erythrocytes count (nu mber/volume)Ordered By: Sinan Abarac on 07-20-2022 RBC (Bld) [#/Vol] 3.63 10*6/uL 4.6-6.[address] [facility] Blood hemoglobin measurement (mass/volume)Ordered By: Sinan Abarca on 07-20-2022 Hemoglobin (Bld) [Mass/Vol] 12.4 g/dL 13.0-16.5 [facility] Blood lymphocytes/100 leukoc ytesOrdered By: Sinan Abarca on 07-20-2022 Lymphocytes/100 WBC (Bld) 38.6 % 19-41 [facility] Blood monocytes/100 leukocyt esOrdered By: Sinan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 Martínez Electronically signed By Jamari Love MD Dictated Date: 05/13/2022 8:06:55 PM Prelim Date: 05/13/2022 8:10:29 PM Sign Date: 05/13/2022 8:46:22 PM Ordering Provider: MERRICK White [facility] ([place]) Glucose Glucometer (BldC) [M ass/Vol]Ordered By: Dr. Dutton on 03-24-2022 Glucose [Mass/Vol] 223 mg/dL 74-106 [facility] Comment on above: MANAGEMENT OF PATIEN T CARE PER NURSING PROTOCOL Basophil percentageOrdered B y: Dr. Dutton on 03-23-2022 Chloride [Moles/Vol] 107 mmol/L 98-107 [facility] Glucose [Mass/Vol] 149 mg/dL 74-106 [facility] Comment on above: Fasting Glucose resu lt greater than or equal to 126 mg/dL suggests DIABETES MELLITUS per A.D.A. criteria. Potassium [Moles/Vol] 4.9 mmol/L 3.5-5.1 [facility] Sodium [Moles/Vol] 140 mmol/L 136-145 [facility] Laboratory - Chemistry and C hemistry - challengeOrdered By: Dr. Dutton on 03-23-2022 CO2 [Moles/Vol] 30.0 mmol/L 21.0-32.0 [facility] Magnesium [Mass/Vol] 1.8 mg/dL 1.6-2.6 [facility] Urea nitrogen/Creatinine [Mass ratio] 8.1 mg/mg 10-20 [facility] No Panel InformationOrdered By: Dr. Dutton on 03-23-2022 Estimated Creatinine Clearance Calc 80.56 ml/min [facility] Estimated GFR (MDRD) Amer 116 mL/min >60 [facility] Comment on above: GFR Calc Estimated GFR (MDRD) Non-Af Amer 96 mL/min >60 [facility] Comment on above: Non- GFR Calc Serum or plasma calcium luciana urement (mass/volume)Ordered By: Dr. Dutton on 03-23-2022 Calcium [Mass/Vol] 7.7 mg/dL 8.5-10.1 [facility] Serum or plasma creatinine m easurement (mass/volume)Ordered By: Dr. Dutton on 03-23-2022 Creatinine [Mass/Vol] 0.87 mg/dL 0.70-1.30 [facility] Comment on above: The validity of the calculated GFR & GFRAA in patients over 70 years has not been determined. Clinical correlation is essential. Serum or plasma urea nitroge n measurement (mass/volume)Ordered By: Dr. Dutton on 03-23-2022 Urea nitrogen [Mass/Vol] 7 mg/dL 7-18 [facility] Thin prep Papanicolaou smear with manual screeningOrdered By: Dr. Dutton on 03-23-2022 Thin prep Papanicolaou smear with manual screening 3 5-15 [facility] Basophil percentageOrdered B y: Dr. Aguayo on 03-22-2022 Bilirubin [Mass/Vol] 1.10 mg/dL 0.20-1.00 [facility] Comment on above: For patients on eltr ombopag therapy, use of Dimension [place] TBIL is not recommended. Protein [Mass/Vol] 4.4 g/dL 6.4-8.2 [facility] Laboratory - Chemistry and C hemistry - challengeOrdered By: Dr. Aguayo on 03-22-2022 ALP [Catalytic activity/Vol] 104 U/L 45-117 [facility] ALT [Catalytic activity/Vol] 76 U/L 16-61 [facility] Globulin (S) [Mass/Vol] 2.4 g/dL 2.2-4.2 [facility] Serum or plasma albumin luciana urement (mass/volume)Ordered By: Dr. Aguayo on 03-22-2022 Albumin [Mass/Vol] 2.0 g/dL 3.2-5.0 [facility] Serum or plasma albumin/glob ulin mass ratioOrdered By: Dr. Aguayo on 03-22-2022 Albumin/Globulin [Mass ratio] 0.8 {ratio} 0.9-2.4 [facility] Thin prep Papanicolaou smear with manual screeningOrdered By: Dr. Aguayo on 03-22-2022 Thin prep Papanicolaou smear with manual screening 254 U/L 15-37 [facility] Whole blood hemoglobin A1c/t otal hemoglobin ratio (mass fraction)Ordered By: Dr. Aguayo on 03-22-2022 HbA1c (Bld) [Mass fraction] 8.3 % 3.8-5.6 [facility] Comment on above: Normal < 5.7 % Predi abetic 5.7 - 6.4 % Diabetic >or= 6.5 % Please note range changes. Absolute lymphocyte countOrd ered By: Dr. Lomeli on 03-21-2022 Lymphocytes Auto (Unsp spec) [#/Vol] 0.60 10*3/uL 0.83-4.51 [facility] Basophil percentageOrdered B y: Dr. Aguayo on 03-21-2022 Basophil percentage 3.6 mg/dL 2.5-4.[address] [facility] Bilirubin [Mass/Vol] 1.40 mg/dL 0.20-1.00 [facility] Comment on above: For patients on eltr ombopag therapy, use of Dim[place] TBIL is not recommended. Protein [Mass/Vol] 5.8 g/dL 6.4-8.2 [facility] Basophil percentageOrdered B y: Dr. Lomeli on 03-21-2022 Basophils/100 WBC (Bld) 0.8 % 0-1 [facility] Chloride [Moles/Vol] 98 mmol/L 98-107 [facility] Eosinophils/100 WBC (Bld) 5.6 % 0-5 [facility] Glucose [Mass/Vol] 294 mg/dL 74-106 [facility] Comment on above: Glucose result great er than or equal to 200 mg/dLsuggests DIABETES MELLITUS per A.D.A. criteria. Neutrophils (Bld) [#/Vol] 4.5 10*3/uL 2.0-7.7 [facility] Neutrophils/100 WBC (Bld) 75.0 % 47-70 [facility] Potassium [Moles/Vol] 3.2 mmol/L 3.5-5.1 [facility] Sodium [Moles/Vol] 142 mmol/L 136-145 [facility] WBC (Bld) [#/Vol] 6.0 10*3/uL 4.4-11.0 [facility] Blood erythrocytes count (nu mber/volume)Ordered By: Dr. Lomeli on 03-21-2022 RBC (Bld) [#/Vol] 3.88 10*6/uL 4.6-6.[address] [facility] Blood hemoglobin measurement (mass/volume)Ordered By: Dr. Lomeli on 03-21-2022 Hemoglobin (Bld) [Mass/Vol] 13.2 g/dL 13.0-16.5 [facility] Blood lymphocytes/100 leukoc ytesOrdered By: Dr. Lomeli on 03-21-2022 Lymphocytes/100 WBC (Bld) 10.0 % 19-41 [facility] Blood manual differential co mment interpretation (narrative result)Ordered By: Dr. Lomeli on 03-21-2022 Manual differential comment Jose Carlos (Bld) [Interp] SCANNED [facility] Comment on above: LYMPHOPENIA NOTED Blood monocytes/100 leukocyt esOrdered By: Dr. Lomeli on 03-21-2022 Monocytes/100 WBC (Bld) 8.1 % 0-10 [facility] Blood platelet mean volumeOr dered By: Dr. Lomeli on 03-21-2022 Platelet mean volume (Bld) [Entitic vol] 11.1 fL 6.2-12.0 [facility] Determination of erythrocyte mean corpuscular volume (MCV)Ordered By: Dr. Lomeli on 03-21-2022 MCV (RBC) [Entitic vol] 98.7 fL 80-94 [facility] Direct bilirubinOrdered By: Dr. Aguayo on 03-21-2022 Bilirubin.direct [Mass/Vol] 0.55 mg/dL 0.00-0.30 [facility] Glucose Glucometer (dC) [M ass/Vol]Ordered By: Dr. Alvarado on 03-21-2022 Glucose [Mass/Vol] 337 mg/dL 74-106 [facility] Comment on above: MANAGEMENT OF PATIEN T CARE PER NURSING PROTOCOL Hematocrit Auto (Bld) [Volum e fraction]Ordered By: Dr. Lomeli on 03-21-2022 Hematocrit (Bld) [Volume fraction] 38.3 % 40-54 [facility] Laboratory - Chemistry and C hemistry - challengeOrdered By: Dr. Aguayo on 03-21-2022 ALP [Catalytic activity/Vol] 144 U/L 45-117 [facility] ALT [Catalytic activity/Vol] 108 U/L 16-61 [facility] Globulin (S) [Mass/Vol] 3.0 g/dL 2.2-4.2 [facility] Magnesium [Mass/Vol] 1.2 mg/dL 1.6-2.6 [facility] Laboratory - Chemistry and C hemistry - challengeOrdered By: Dr. Lomeli on 03-21-2022 CO2 [Moles/Vol] 32.0 mmol/L 21.0-32.0 [facility] Urea nitrogen/Creatinine [Mass ratio] 3.6 mg/mg 10-20 [facility] Laboratory - Drug toxicology Ordered By: Dr. Lomeli on 03-21-2022 Amphetamines Ql (U) Negative <1000 ng/mL [facility] Benzodiazepines Ql (U) Negative < 200 ng/mL [facility] Cannabinoids Screen Ql (U) Negative < 50 ng/mL [facility] Cocaine Ql (U) Negative < 300 ng/mL [facility] Opiates Ql (U) Negative < 300 ng/mL [facility] Laboratory - Hematology and Cell countsOrdered By: Dr. Lomeli on 03-21-2022 Erythrocyte distribution width (RBC) [Entitic vol] 49.6 fL 35.1-43.9 [facility] Erythrocyte distribution width (RBC) [Ratio] 13.6 % 11.6-14.6 [facility] Immature granulocytes/100 WBC (Bld) 0.500 % 0.0-0.9 [facility] Comment on above: IG% - Immature Granu locytes (promyelocytes, myelocytes and metamyelocytes) > 1% indicates that a LEFT SHIFT is Present. MCH (RBC) [Entitic mass] 34.0 pg 27.0-32.0 [facility] Nucleated RBC/100 WBC (Bld) [Ratio] 0 % 0-5 [facility] MCHC Auto (RBC) [Mass/Vol]Or dered By: Dr. Lomeli on 03-21-2022 MCHC (RBC) [Mass/Vol] 34.5 g/dL 32-36 [facility] No Panel InformationOrdered By: Dr. Lomeli on 03-21-2022 MDMA (Ecstasy) Screen Negative < 500 ng/mL [facility] Urine Barbiturates Screen Negative < 200 ng/mL [facility] Urine Drug Screen Comment [facility] Comment on above: CONFIRMATORY TESTING FOR ALL POSITIVE URINE DRUG SCREENRESULTS WILL ONLY BE SENT OUT UPON PHYSICIAN ORDER. [facility] Urine Drug Screen methods provide only preliminaryanalytical test results. A more specific alternate chemicalmethod must be used in order to obtain a confirmedanalytical result. Gas chromatography/mass spectrometery(GC/MS) is the preferred confirmatory method. Clinicalconsideration and professional judgement should be appliedto any drug of abuse test result, particularly whenpreliminary positive results are used. URINE TCA TESTING MUST BE ORDERED SEPARATELY. USE TESTMNEMONIC: [facility] Urine Methadone Screen Negative < 300 ng/mL [facility] Estimated Creatinine Clearance Calc 68.96 ml/min [facility] Estimated GFR (MDRD) Amer 87 mL/min >60 [facility] Comment on above: GFR Calc Estimated GFR (MDRD) Non-Af Amer 72 mL/min >60 [facility] Comment on above: Non- GFR Calc Ethyl Alcohol Level < 3.0 mg/dL [facility] Comment on above: The serum:whole bloo d ethanol ratio is approximately 1.14and varies slightly with hematocrit. Medical Alcohol reference interval and critical value innon-tolerant individuals; 50 - 100 Impairment 100 Intoxication 100 - 250 Severe Poisoning 250 - 400 Deep/possible fatal coma Platelets bldOrdered By: Dr. Lomeli on 03-21-2022 Platelets (Bld) [#/Vol] 144 10*3/uL 150-450 [facility] Serum or plasma albumin luciana urement (mass/volume)Ordered By: Dr. Aguayo on 03-21-2022 Albumin [Mass/Vol] 2.8 g/dL 3.2-5.0 [facility] Serum or plasma calcium luciana urement (mass/volume)Ordered By: Dr. Lomeli on 03-21-2022 Calcium [Mass/Vol] 8.3 mg/dL 8.5-10.1 [facility] Serum or plasma creatinine m easurement (mass/volume)Ordered By: Dr. Lomeli on 03-21-2022 Creatinine [Mass/Vol] 1.11 mg/dL 0.70-1.30 [facility] Comment on above: The validity of the calculated GFR & GFRAA in patients over 70 years has not been determined. Clinical correlation is essential. Serum or plasma urea nitroge n measurement (mass/volume)Ordered By: Dr. Lomeli on 03-21-2022 Urea nitrogen [Mass/Vol] 4 mg/dL 7-18 [facility] Thin prep Papanicolaou smear with manual screeningOrdered By: Dr. Aguayo on 03-21-2022 Thin prep Papanicolaou smear with manual screening 334 U/L 15-37 [facility] Thin prep Papanicolaou smear with manual screeningOrdered By: Dr. Lomeli on 03-21-2022 Thin prep Papanicolaou smear with manual screening 12 5-15 [facility] Urine phencyclidine (PCP) de tectionOrdered By: Dr. Lomeli on 03-21-2022 Phencyclidine Ql (U) Negative < 25 ng/mL [facility] Basophil percentageOrdered B y: Dr. Dutton on 02-04-2022 Glucose [Mass/Vol] 516 mg/dL 74-106 [facility] Comment on above: Critical Result(s) C alled at: 11:23:39 02/04/2022 by: Estefany Rosenberg. Results read back by same.Glucose result greater than or equal to 200 mg/dLsuggests DIABETES MELLITUS per A.D.A. criteria. Glucose Glucometer (BldC) [M ass/Vol]Ordered By: Dr. Dutton on 02-04-2022 Glucose [Mass/Vol] 494 mg/dL 74-106 [facility] Comment on above: Repeat TestMANAGEMEN T OF PATIENT CARE PER NURSING PROTOCOL Absolute lymphocyte countOrd ered By: Dr. Lomeli on 02-01-2022 Lymphocytes Auto (Unsp spec) [#/Vol] 1.73 10*3/uL 0.83-4.51 [facility] Basophil percentageOrdered B y: Dr. Aguayo on 02-01-2022 Basophil percentage 2.6 mg/dL 2.5-4.[address] [facility] Bilirubin [Mass/Vol] 0.30 mg/dL 0.20-1.00 [facility] Comment on above: For patients on eltr ombopag therapy, use of Dim[place] TBIL is not recommended. Protein [Mass/Vol] 6.2 g/dL 6.4-8.2 [facility] Basophil percentageOrdered B y: Dr. Lomeli on 02-01-2022 Chloride [Moles/Vol] 107 mmol/L 98-107 [facility] Potassium [Moles/Vol] 3.1 mmol/L 3.5-5.1 [facility] Sodium [Moles/Vol] 144 mmol/L 136-145 [facility] Basophils/100 WBC (Bld) 1.6 % 0-1 [facility] Eosinophils/100 WBC (Bld) 0.4 % 0-5 [facility] Neutrophils (Bld) [#/Vol] 2.9 10*3/uL 2.0-7.7 [facility] Neutrophils/100 WBC (Bld) 55.5 % 47-70 [facility] WBC (Bld) [#/Vol] 5.2 10*3/uL 4.4-11.0 [facility] Basophil percentageon 2021 Glucose [Mass/Vol] 256 mg/dL 74-106 [facility] Work Phone: Comment on above: Glucose result great er than or equal to 200 mg/dLsuggests DIABETES MELLITUS per A.D.A. criteria. Blood erythrocytes count (nu mber/volume)Ordered By: Dr. Lomeli on 02-01-2022 RBC (Bld) [#/Vol] 3.96 10*6/uL 4.6-6.[address] [facility] Blood hemoglobin measurement (mass/volume)Ordered By: Dr. Lomeli on 02-01-2022 Hemoglobin (Bld) [Mass/Vol] 14.2 g/dL 13.0-16.5 [facility] Blood lymphocytes/100 leukoc ytesOrdered By: Dr. Lomeli on 02-01-2022 Lymphocytes/100 WBC (Bld) 33.6 % 19-41 [facility] Blood monocytes/100 leukocyt esOrdered By: Dr. Lomeli on 02-01-2022 Monocytes/100 WBC (Bld) 8.5 % 0-10 [facility] Blood platelet mean volumeOr dered By: Dr. Lomeli on 02-01-2022 Platelet mean volume (Bld) [Entitic vol] 11.6 fL 6.2-12.0 [facility] Determination of erythrocyte mean corpuscular volume (MCV)Ordered By: Dr. Lomeli on 02-01-2022 MCV (RBC) [Entitic vol] 106.3 fL 80-94 [facility] Direct bilirubinOrdered By: Dr. Aguayo on 02-01-2022 Bilirubin.direct [Mass/Vol] 0.20 mg/dL 0.00-0.30 [facility] Hematocrit Auto (Bld) [Volum e fraction]Ordered By: Dr. Lomeli on 02-01-2022 Hematocrit (Bld) [Volume fraction] 42.1 % 40-54 [facility] Laboratory - Chemistry and C hemistry - challengeOrdered By: Dr. Aguayo on 02-01-2022 ALP [Catalytic activity/Vol] 164 U/L 45-117 [facility] ALT [Catalytic activity/Vol] 109 U/L 16-61 [facility] Globulin (S) [Mass/Vol] 3.2 g/dL 2.2-4.2 [facility] Magnesium [Mass/Vol] 2.0 mg/dL 1.6-2.6 [facility] Laboratory - Chemistry and C hemistry - challengeOrdered By: Dr. Lomeli on 02-01-2022 CO2 [Moles/Vol] 29.0 mmol/L 21.0-32.0 [facility] Lipase [Catalytic activity/Vol] 21 U/L 73-393 [facility] Urea nitrogen/Creatinine [Mass ratio] 4.6 mg/mg 10-20 [facility] Laboratory - Hematology and Cell countsOrdered By: Dr. Lomeli on 02-01-2022 Erythrocyte distribution width (RBC) [Entitic vol] 52.8 fL 35.1-43.9 [facility] Erythrocyte distribution width (RBC) [Ratio] 13.3 % 11.6-14.6 [facility] Immature granulocytes/100 WBC (Bld) 0.400 % 0.0-0.9 [facility] Comment on above: IG% - Immature Granu locytes (promyelocytes, myelocytes and metamyelocytes) > 1% indicates that a LEFT SHIFT is Present. MCH (RBC) [Entitic mass] 35.9 pg 27.0-32.0 [facility] [facility] Nucleated RBC/100 WBC (Bld) [Ratio] 0 % 0-5 [facility] MCHC Auto (RBC) [Mass/Vol]Or dered By: Dr. Lomeli on 02-01-2022 MCHC (RBC) [Mass/Vol] 33.7 g/dL 32-36 [facility] No Panel InformationOrdered By: Dr. Lomeli on 02-01-2022 Troponin I High Sensitivity 22 pg/mL 3.0-78.0 [facility] Comment on above: Please Note: New Kelly t Units and Gender Specific Reference Ranges. For more information see Policy Stat Procedure [place] High Sensitivity Troponin (TNIH) and attachments. Estimated Creatinine Clearance Calc 60.20 ml/min [facility] Estimated GFR (MDRD) Amer 72 mL/min >60 [facility] Comment on above: GFR Calc Estimated GFR (MDRD) Non-Af Amer 59 mL/min >60 [facility] Comment on above: Non- GFR Calc No Panel Informationon 02-01 Troponin I High Sensitivity 22 pg/mL 3.0-78.0 [facility] Work Phone: Comment on above: Please Note: New Kelly t Units and Gender Specific Reference Ranges. For more information see Policy Stat Procedure [place] High Sensitivity Troponin (TNIH) and attachments. Platelets bldOrdered By: Dr. Lomeli on 02-01-2022 Platelets (Bld) [#/Vol] 206 10*3/uL 150-450 [facility] Serum or plasma albumin luciana urement (mass/volume)Ordered By: Dr. Aguayo on 02-01-2022 Albumin [Mass/Vol] 3.0 g/dL 3.2-5.0 [facility] Serum or plasma calcium luciana urement (mass/volume)Ordered By: Dr. Lomeli on 02-01-2022 Calcium [Mass/Vol] 8.3 mg/dL 8.5-10.1 [facility] Serum or plasma creatinine m easurement (mass/volume)Ordered By: Dr. Lomeli on 02-01-2022 Creatinine [Mass/Vol] 1.31 mg/dL 0.70-1.30 [facility] Comment on above: The validity of the calculated GFR & GFRAA in patients over 70 years has not been determined. Clinical correlation is essential. Serum or plasma urea nitroge n measurement (mass/volume)Ordered By: Dr. Lomeli on 02-01-2022 Urea nitrogen [Mass/Vol] 6 mg/dL 7-18 [facility] Thin prep Papanicolaou smear with manual screeningOrdered By: Dr. Aguayo on 02-01-2022 Thin prep Papanicolaou smear with manual screening 239 U/L 15-37 [facility] Thin prep Papanicolaou smear with manual screeningOrdered By: Dr. Lomeli on 02-01-2022 Thin prep Papanicolaou smear with manual screening 8 5-15 [facility] LABORATORYOrdered By: Amanda Ibrahim on 12-31-2021 HbA1c (Bld) [Mass fraction] 7.9 % [facility] Work Phone: Lab Performing Location [facility] Work Phone: Glucose Glucometer (BldC) [M ass/Vol]on 11-14-2021 Glucose [Mass/Vol] 270 mg/dL 74-106 [facility] Work Phone: Comment on above: MANAGEMENT OF PATIEN T CARE PER NURSING PROTOCOL Absolute lymphocyte counton 11-11-2021 Lymphocytes Auto (Unsp spec) [#/Vol] 1.48 10*3/uL 0.83-4.51 [facility] Work Phone: Basophil percentageon 2021 Basophil percentage 3.4 mg/dL 2.5-4.[address] [facility] Work Phone: Basophils/100 WBC (Bld) 0.6 % 0-1 [facility] Work Phone: Bilirubin [Mass/Vol] 0.60 mg/dL 0.20-1.00 [facility] Work Phone: Comment on above: For patients on eltr ombopag therapy, use of Dimension [place] TBIL is not recommended. Chloride [Moles/Vol] 98 mmol/L 98-107 [facility] Work Phone: Eosinophils/100 WBC (Bld) 0.4 % 0-5 [facility] Work Phone: Glucose [Mass/Vol] 284 mg/dL 74-106 [facility] Work Phone: Comment on above: Glucose result great er than or equal to 200 mg/dLsuggests DIABETES MELLITUS per A.D.A. criteria. Neutrophils (Bld) [#/Vol] 2.9 10*3/uL 2.0-7.7 [facility] Work Phone: Neutrophils/100 WBC (Bld) 57.5 % 47-70 [facility] Work Phone: Potassium [Moles/Vol] 3.5 mmol/L 3.5-5.1 [facility] Work Phone: Protein [Mass/Vol] 5.1 g/dL 6.4-8.2 [facility] Work Phone: Sodium [Moles/Vol] 137 mmol/L 136-145 [facility] Work Phone: WBC (Bld) [#/Vol] 5.0 10*3/uL 4.4-11.0 [facility] Work Phone: Blood erythrocytes count (nu mber/volume)on 11-11-2021 RBC (Bld) [#/Vol] 3.00 10*6/uL 4.6-6.[address] [facility] Work Phone: Blood hemoglobin measurement (mass/volume)on 11-11-2021 Hemoglobin (Bld) [Mass/Vol] 11.3 g/dL 13.0-16.5 [facility] Work Phone: Blood lymphocytes/100 leukoc yteson 11-11-2021 Lymphocytes/100 WBC (Bld) 29.7 % 19-41 [facility] Work Phone: Blood monocytes/100 leukocyt eson 11-11-2021 Monocytes/100 WBC (Bld) 11.2 % 0-10 [facility] Work Phone: Blood platelet adequacy dete ction by light microscopyon 11-11-2021 Platelets LM Ql (Bld) ADEQUATE ADEQ [facility] Work Phone: [phone] Blood platelet mean volumeon 11-11-2021 Platelet mean volume (Bld) [Entitic vol] 10.7 fL 6.2-12.0 [facility] Work Phone: [phone] Determination of erythrocyte mean corpuscular volume (MCV)on 11-11-2021 MCV (RBC) [Entitic vol] 110.7 fL 80-94 [facility] Work Phone: [phone] Direct bilirubinon Bilirubin.direct [Mass/Vol] 0.33 mg/dL 0.00-0.30 [facility] Work Phone: [phone] Hematocrit Auto (Bld) [Volum e fraction]on 11-11-2021 Hematocrit (Bld) [Volume fraction] 33.2 % 40-54 [facility] Work Phone: [phone] Laboratory - Chemistry and C hemistry - challengeon 11-11-2021 ALP [Catalytic activity/Vol] 133 U/L 45-117 [facility] Work Phone: ALT [Catalytic activity/Vol] 55 U/L 16-61 [facility] Work Phone: [phone] CO2 [Moles/Vol] 28.0 mmol/L 21.0-32.0 [facility] Work Phone: [phone] Globulin (S) [Mass/Vol] 2.9 g/dL 2.2-4.2 [facility] Work Phone: [phone] Magnesium [Mass/Vol] 1.8 mg/dL 1.6-2.6 [facility] Work Phone: [phone] Urea nitrogen/Creatinine [Mass ratio] 7.8 mg/mg 10-20 [facility] Work Phone: [phone] Laboratory - Drug toxicology on 11-11-2021 Amphetamines Ql (U) Negative <1000 ng/mL [facility] Work Phone: [phone] Benzodiazepines Ql (U) Negative < 200 ng/mL [facility] Work Phone: [phone] Cannabinoids Screen Ql (U) Negative < 50 ng/mL [facility] Work Phone: [phone] Cocaine Ql (U) Negative < 300 ng/mL [facility] Work Phone: [phone] Opiates Ql (U) Negative < 300 ng/mL [facility] Work Phone: [phone] Laboratory - Hematology and Cell countson 11-11-2021 Anisocytosis Ql (Bld) 1+ [facility] Work Phone: [phone] Erythrocyte distribution width (RBC) [Entitic vol] 71.1 fL 35.1-43.9 [facility] Work Phone: [phone] Erythrocyte distribution width (RBC) [Ratio] 17.3 % 11.6-14.6 [facility] Work Phone: [phone] Immature granulocytes/100 WBC (Bld) 0.600 % 0.0-0.9 [facility] Work Phone: [phone] Comment on above: IG% - Immature Granu locytes (promyelocytes, myelocytes and metamyelocytes) > 1% indicates that a LEFT SHIFT is Present. MCH (RBC) [Entitic mass] 37.7 pg 27.0-32.0 [facility] Work Phone: [phone] Nucleated RBC/100 WBC (Bld) [Ratio] 0 % 0-5 [facility] Work Phone: [phone] MCHC Auto (RBC) [Mass/Vol]on 11-11-2021 MCHC (RBC) [Mass/Vol] 34.0 g/dL 32-36 [facility] Work Phone: [phone] Macrocytes detectionon 11-11 Macrocytes Ql (Bld) 1+ [facility] Work Phone: [phone] Panel Informationon 11-11 MDMA (Ecstasy) Screen Negative < 500 ng/mL [facility] Work Phone: [phone] Urine Barbiturates Screen Positive < 200 ng/mL [facility] Work Phone: [phone] Urine Drug Screen Comment [facility] Work Phone: [phone] Comment on above: CONFIRMATORY TESTING FOR ALL POSITIVE URINE DRUG SCREENRESULTS WILL ONLY BE SENT OUT UPON PHYSICIAN ORDER. [facility]ISTA Urine Drug Screen methods provide only preliminaryanalytical test results. A more specific alternate chemicalmethod must be used in order to obtain a confirmedanalytical result. Gas chromatography/mass spectrometery(GC/MS) is the preferred confirmatory method. Clinicalconsideration and professional judgement should be appliedto any drug of abuse test result, particularly whenpreliminary positive results are used. URINE TCA TESTING MUST BE ORDERED SEPARATELY. USE TESTMNEMONIC: [facility] Urine Methadone Screen Negative < 300 ng/mL [facility] Work Phone: [phone] Estimated Creatinine Clearance Calc 63.79 ml/min [facility] Work Phone: [phone] Estimated GFR (MDRD) Amer 74 mL/min >60 [facility] Work Phone: [phone] Comment on above: GFR Calc Estimated GFR (MDRD) Non-Af Amer 61 mL/min >60 [facility] Work Phone: Comment on above: Non- GFR Calc Ethyl Alcohol Level 118.0 mg/dL [facility] Work Phone: Comment on above: The serum:whole bloo d ethanol ratio is approximately 1.14and varies slightly with hematocrit. Medical Alcohol reference interval and critical value innon-tolerant individuals; 50 - 100 Impairment 100 Intoxication 100 - 250 Severe Poisoning 250 - 400 Deep/possible fatal coma Platelets bldon 11-11-2021 Platelets (Bld) [#/Vol] 241 10*3/uL 150-450 [facility] Work Phone: [phone] Serum or plasma albumin luciana urement (mass/volume)on 11-11-2021 Albumin [Mass/Vol] 2.2 g/dL 3.2-5.0 [facility] Work Phone: [phone] Serum or plasma calcium luciana urement (mass/volume)on 11-11-2021 Calcium [Mass/Vol] 7.9 mg/dL 8.5-10.1 [facility] Work Phone: [phone] Serum or plasma creatinine m easurement (mass/volume)on 11-11-2021 Creatinine [Mass/Vol] 1.28 mg/dL 0.70-1.30 [facility] Work Phone: Comment on above: The validity of the calculated GFR & GFRAA in patients over 70 years has not been determined. Clinical correlation is essential. Serum or plasma urea nitroge n measurement (mass/volume)on 11-11-2021 Urea nitrogen [Mass/Vol] 10 mg/dL 7-18 [facility] Work Phone: Thin prep Papanicolaou smear with manual screeningon 11-11-2021 Thin prep Papanicolaou smear with manual screening 80 U/L 15-37 [facility] Work Phone: [phone] Thin prep Papanicolaou smear with manual screening 11 5-15 [facility] Work Phone: Urine phencyclidine (PCP) de tectionon 11-11-2021 Phencyclidine Ql (U) Negative < 25 ng/mL [facility] Work Phone: Basophil percentageon 2021 Chloride [Moles/Vol] 106 mmol/L 98-107 [facility] Work Phone: Glucose [Mass/Vol] 84 mg/dL 74-106 [facility] Work Phone: Potassium [Moles/Vol] 4.8 mmol/L 3.5-5.1 [facility] Work Phone: Sodium [Moles/Vol] 140 mmol/L 136-145 [facility] Work Phone: Glucose Glucometer (BldC) [M ass/Vol]on 11-08-2021 Glucose [Mass/Vol] 141 mg/dL 74-106 [facility] Work Phone: Comment on above: MANAGEMENT OF PATIEN T CARE PER NURSING PROTOCOL Laboratory - Chemistry and C hemistry - challengeon 11-08-2021 CO2 [Moles/Vol] 30.0 mmol/L 21.0-32.0 [facility] Work Phone: Urea nitrogen/Creatinine [Mass ratio] 8.0 mg/mg 10-20 [facility] Work Phone: No Panel Informationon 11-08 Estimated Creatinine Clearance Calc 88.72 ml/min [facility] Work Phone: Estimated GFR (MDRD) Amer 114 mL/min >60 [facility] Work Phone: Comment on above: GFR Calc Estimated GFR (MDRD) Non-Af Amer 94 mL/min >60 [facility] Work Phone: Comment on above: Non- GFR Calc Serum or plasma calcium luciana urement (mass/volume)on 11-08-2021 Calcium [Mass/Vol] 7.7 mg/dL 8.5-10.1 [facility] Work Phone: Serum or plasma creatinine m easurement (mass/volume)on 11-08-2021 Creatinine [Mass/Vol] 0.88 mg/dL 0.70-1.30 [facility] Work Phone: Comment on above: The validity of the calculated GFR & GFRAA in patients over 70 years has not been determined. Clinical correlation is essential. Serum or plasma urea nitroge n measurement (mass/volume)on 11-08-2021 Urea nitrogen [Mass/Vol] 7 mg/dL 7-18 [facility] Work Phone: Thin prep Papanicolaou smear with manual screeningon 11-08-2021 Thin prep Papanicolaou smear with manual screening 4 5-15 [facility] Work Phone: Laboratory - Chemistry and C hemistry - challengeon 11-06-2021 Magnesium [Mass/Vol] 2.6 mg/dL 1.6-2.6 [facility] Work Phone: Comment on above: Slight Hemolysis, Re sult may be falsely increased. Absolute lymphocyte counton 11-05-2021 Lymphocytes Auto (Unsp spec) [#/Vol] 1.65 10*3/uL 0.83-4.51 [facility] Work Phone: Basophil percentageon 2021 Bilirubin [Mass/Vol] 0.80 mg/dL 0.20-1.00 [facility] Work Phone: Comment on above: For patients on eltr ombopag therapy, use of Dimension [place] TBIL is not recommended. Chloride [Moles/Vol] 92 mmol/L 98-107 [facility] Work Phone: Glucose [Mass/Vol] 310 mg/dL 74-106 [facility] Work Phone: [phone] Comment on above: Glucose result great er than or equal to 200 mg/dLsuggests DIABETES MELLITUS per A.D.A. criteria. Potassium [Moles/Vol] 2.5 mmol/L 3.5-5.1 [facility] Work Phone: Comment on above: Moderate Hemolysis, Result may be falsely increased. Critical Result(s) Called at: 17:34:59 11/05/2021 by: Carlos Minor to [employer] RN (ER). Results read back by same. Protein [Mass/Vol] 5.6 g/dL 6.4-8.2 [facility] Work Phone: Sodium [Moles/Vol] 138 mmol/L 136-145 [facility] Work Phone: Basophils/100 WBC (Bld) 1.0 % 0-1 [facility] Work Phone: Eosinophils/100 WBC (Bld) 0.5 % 0-5 [facility] Work Phone: [phone] Neutrophils (Bld) [#/Vol] 3.4 10*3/uL 2.0-7.7 [facility] Work Phone: Neutrophils/100 WBC (Bld) 56.9 % 47-70 [facility] Work Phone: WBC (Bld) [#/Vol] 5.9 10*3/uL 4.4-11.0 [facility] Work Phone: Blood erythrocytes count (nu mber/volume)on 11-05-2021 RBC (Bld) [#/Vol] 3.22 10*6/uL 4.6-6.[address] [facility] Work Phone: Blood hemoglobin measurement (mass/volume)on 11-05-2021 Hemoglobin (Bld) [Mass/Vol] 12.0 g/dL 13.0-16.5 [facility] Work Phone: Blood lymphocytes/100 leukoc yteson 11-05-2021 Lymphocytes/100 WBC (Bld) 27.9 % 19-41 [facility] Work Phone: [phone] Blood monocytes/100 leukocyt eson 11-05-2021 Monocytes/100 WBC (Bld) 13.4 % 0-10 [facility] Work Phone: Blood platelet mean volumeon 11-05-2021 Platelet mean volume (Bld) [Entitic vol] 11.5 fL 6.2-12.0 [facility] Work Phone: Determination of erythrocyte mean corpuscular volume (MCV)on 11-05-2021 MCV (RBC) [Entitic vol] 107.8 fL 80-94 [facility] Work Phone: Hematocrit Auto (Bld) [Volum e fraction]on 11-05-2021 Hematocrit (Bld) [Volume fraction] 34.7 % 40-54 [facility] Work Phone: Laboratory - Chemistry and C hemistry - challengeon 11-05-2021 ALP [Catalytic activity/Vol] 150 U/L 45-117 [facility] Work Phone: [phone] ALT [Catalytic activity/Vol] 78 U/L 16-61 [facility] Work Phone: [phone] CO2 [Moles/Vol] 27.0 mmol/L 21.0-32.0 [facility] Work Phone: Globulin (S) [Mass/Vol] 3.3 g/dL 2.2-4.2 [facility] Work Phone: Lipase [Catalytic activity/Vol] 11 U/L 73-393 [facility] Work Phone: Urea nitrogen/Creatinine [Mass ratio] 6.1 mg/mg 10-20 [facility] Work Phone: [phone] Laboratory - Drug toxicology on 11-05-2021 Amphetamines Ql (U) Negative <1000 ng/mL [facility] Work Phone: [phone] Benzodiazepines Ql (U) Negative < 200 ng/mL [facility] Work Phone: [phone] Cannabinoids Screen Ql (U) Negative < 50 ng/mL [facility] Work Phone: [phone] Cocaine Ql (U) Negative < 300 ng/mL [facility] Work Phone: [phone] Opiates Ql (U) Negative < 300 ng/mL [facility] Work Phone: [phone] Laboratory - Hematology and Cell countson 11-05-2021 Erythrocyte distribution width (RBC) [Entitic vol] 62.5 fL 35.1-43.9 [facility] Work Phone: [phone] Erythrocyte distribution width (RBC) [Ratio] 15.7 % 11.6-14.6 [facility] Work Phone: [phone] Immature granulocytes/100 WBC (Bld) 0.300 % 0.0-0.9 [facility] Work Phone: [phone] Comment on above: IG% - Immature Granu locytes (promyelocytes, myelocytes and metamyelocytes) > 1% indicates that a LEFT SHIFT is Present. MCH (RBC) [Entitic mass] 37.3 pg 27.0-32.0 [facility] Work Phone: [phone] Nucleated RBC/100 WBC (Bld) [Ratio] 0 % 0-5 [facility] Work Phone: [phone] MCHC Auto (RBC) [Mass/Vol]on 11-05-2021 MCHC (RBC) [Mass/Vol] 34.6 g/dL 32-36 [facility] Work Phone: [phone] Panel Informationon 11-05 MDMA (Ecstasy) Screen Negative < 500 ng/mL [facility] Work Phone: [phone] Urine Barbiturates Screen Negative < 200 ng/mL [facility] Work Phone: Urine Drug Screen Comment [facility] Work Phone: Comment on above: CONFIRMATORY TESTING FOR ALL POSITIVE URINE DRUG SCREENRESULTS WILL ONLY BE SENT OUT UPON PHYSICIAN ORDER. [facility] Urine Drug Screen methods provide only preliminaryanalytical test results. A more specific alternate chemicalmethod must be used in order to obtain a confirmedanalytical result. Gas chromatography/mass spectrometery(GC/MS) is the preferred confirmatory method. Clinicalconsideration and professional judgement should be appliedto any drug of abuse test result, particularly whenpreliminary positive results are used. URINE TCA TESTING MUST BE ORDERED SEPARATELY. USE TESTMNEMONIC: [facility] Urine Methadone Screen Negative < 300 ng/mL [facility] Work Phone: Estimated Creatinine Clearance Calc 73.66 ml/min [facility] Work Phone: Estimated GFR (MDRD) Amer 84 mL/min >60 [facility] Work Phone: Comment on above: GFR Calc Estimated GFR (MDRD) Non-Af Amer 69 mL/min >60 [facility] Work Phone: Comment on above: Non- GFR Calc Ethyl Alcohol Level 253.0 mg/dL [facility] Work Phone: Comment on above: The serum:whole bloo d ethanol ratio is approximately 1.14and varies slightly with hematocrit. Medical Alcohol reference interval and critical value innon-tolerant individuals; 50 - 100 Impairment 100 Intoxication 100 - 250 Severe Poisoning 250 - 400 Deep/possible fatal coma Platelets bldon 11-05-2021 Platelets (Bld) [#/Vol] 215 10*3/uL 150-450 [facility] Work Phone: [phone] Serum or plasma albumin luciana urement (mass/volume)on 11-05-2021 Albumin [Mass/Vol] 2.3 g/dL 3.2-5.0 [facility] Work Phone: Serum or plasma albumin/glob ulin mass ratioon 11-05-2021 Albumin/Globulin [Mass ratio] 0.7 {ratio} 0.9-2.4 [facility] Work Phone: Serum or plasma calcium luciana urement (mass/volume)on 11-05-2021 Calcium [Mass/Vol] 7.8 mg/dL 8.5-10.1 [facility] Work Phone: Serum or plasma creatinine m easurement (mass/volume)on 11-05-2021 Creatinine [Mass/Vol] 1.15 mg/dL 0.70-1.30 [facility] Work Phone: Comment on above: The validity of the calculated GFR & GFRAA in patients over 70 years has not been determined. Clinical correlation is essential. Serum or plasma urea nitroge n measurement (mass/volume)on 11-05-2021 Urea nitrogen [Mass/Vol] 7 mg/dL 7-18 [facility] Work Phone: Thin prep Papanicolaou smear with manual screeningon 11-05-2021 Thin prep Papanicolaou smear with manual screening 163 U/L 15-37 [facility] Work Phone: Comment on above: Moderate Hemolysis, Result may be falsely increased. Thin prep Papanicolaou smear with manual screening 19 5-15 [facility] Work Phone: Urine phencyclidine (PCP) de tectionon 11-05-2021 Phencyclidine Ql (U) Negative < 25 ng/mL [facility] Work Phone: Absolute lymphocyte counton 10-06-2021 Lymphocytes Auto (Unsp spec) [#/Vol] 1.72 10*3/uL 0.83-4.51 [facility] Work Phone: Basophil percentageon 2021 Basophils/100 WBC (Bld) 2.1 % 0-1 [facility] Work Phone: Chloride [Moles/Vol] 108 mmol/L 98-107 [facility] Work Phone: Eosinophils/100 WBC (Bld) 2.6 % 0-5 [facility] Work Phone: Glucose [Mass/Vol] 236 mg/dL 74-106 [facility] Work Phone: Comment on above: Glucose result great er than or equal to 200 mg/dLsuggests DIABETES MELLITUS per A.D.A. criteria. Neutrophils (Bld) [#/Vol] 1.7 10*3/uL 2.0-7.7 [facility] Work Phone: Neutrophils/100 WBC (Bld) 40.4 % 47-70 [facility] Work Phone: [phone] Potassium [Moles/Vol] 3.4 mmol/L 3.5-5.1 [facility] Work Phone: Sodium [Moles/Vol] 144 mmol/L 136-145 [facility] Work Phone: WBC (Bld) [#/Vol] 4.3 10*3/uL 4.4-11.0 [facility] Work Phone: [phone] Blood erythrocytes count (nu mber/volume)on 10-06-2021 RBC (Bld) [#/Vol] 3.85 10*6/uL 4.6-[facility]: Blood hemoglobin measurement (mass/volume)on 10-06-2021 Hemoglobin (Bld) [Mass/Vol] 13.6 g/dL 13.0-16.5 [facility] Work Phone: Blood lymphocytes/100 leukoc yteson 10-06-2021 Lymphocytes/100 WBC (Bld) 40.5 % 19-41 [facility] Work Phone: Blood monocytes/100 leukocyt eson 10-06-2021 Monocytes/100 WBC (Bld) 13.9 % 0-10 [facility] Work Phone: Blood platelet mean volumeon 10-06-2021 Platelet mean volume (Bld) [Entitic vol] 9.6 fL 6.2-12.0 [facility] Work Phone: [phone] Determination of erythrocyte mean corpuscular volume (MCV)on 10-06-2021 MCV (RBC) [Entitic vol] 101.0 fL 80-94 [facility] Work Phone: [phone] Glucose Glucometer (BldC) [M ass/Vol]on 10-06-2021 Glucose [Mass/Vol] 211 mg/dL 74-106 [facility] Work Phone: [phone] Comment on above: MANAGEMENT OF PATIEN T CARE PER NURSING PROTOCOL Hematocrit Auto (Bld) [Volum e fraction]on 10-06-2021 Hematocrit (Bld) [Volume fraction] 38.9 % 40-54 [facility] Work Phone: [phone] Laboratory - Chemistry and C hemistry - challengeon 10-06-2021 CO2 [Moles/Vol] 28.0 mmol/L 21.0-32.0 [facility] Work Phone: [phone] Urea nitrogen/Creatinine [Mass ratio] 4.3 mg/mg 10-20 [facility] Work Phone: [phone] Laboratory - Drug toxicology on 10-06-2021 Amphetamines Ql (U) Negative <1000 ng/mL [facility] Work Phone: [phone] Benzodiazepines Ql (U) Negative < 200 ng/mL [facility] Work Phone: [phone] Cannabinoids Screen Ql (U) Negative < 50 ng/mL [facility] Work Phone: [phone] Cocaine Ql (U) Negative < 300 ng/mL [facility] Work Phone: [phone] Opiates Ql (U) Negative < 300 ng/mL [facility] Work Phone: [phone] Laboratory - Hematology and Cell countson 10-06-2021 Erythrocyte distribution width (RBC) [Entitic vol] 52.8 fL 35.1-43.9 [facility] Work Phone: [phone] Erythrocyte distribution width (RBC) [Ratio] 14.3 % 11.6-14.6 [facility] Work Phone: [phone] Immature granulocytes/100 WBC (Bld) 0.500 % 0.0-0.9 [facility] Work Phone: [phone] Comment on above: IG% - Immature Granu locytes (promyelocytes, myelocytes and metamyelocytes) > 1% indicates that a LEFT SHIFT is Present. MCH (RBC) [Entitic mass] 35.3 pg 27.0-32.0 [facility] Work Phone: [phone] Nucleated RBC/100 WBC (Bld) [Ratio] 0 % 0-5 [facility] Work Phone: [phone] MCHC Auto (RBC) [Mass/Vol]on 10-06-2021 MCHC (RBC) [Mass/Vol] 35.0 g/dL 32-36 [facility] Work Phone: [phone] Panel Informationon 10-06 Ethyl Alcohol Level 107.0 mg/dL [facility] Work Phone: [phone] Comment on above: The serum:whole bloo d ethanol ratio is approximately 1.14and varies slightly with hematocrit. Medical Alcohol reference interval and critical value innon-tolerant individuals; 50 - 100 Impairment 100 Intoxication 100 - 250 Severe Poisoning 250 - 400 Deep/possible fatal coma Estimated Creatinine Clearance Calc 63.62 ml/min [facility] Work Phone: [phone] Estimated GFR (MDRD) Amer 83 mL/min >60 [facility] Work Phone: [phone] Comment on above: GFR Calc Estimated GFR (MDRD) Non-Af Amer 68 mL/min >60 [facility] Work Phone: [phone] Comment on above: Non- GFR Calc MDMA (Ecstasy) Screen Negative < 500 ng/mL [facility] Work Phone: [phone] Urine Barbiturates Screen Negative < 200 ng/mL [facility] Work Phone: [phone] Urine Drug Screen Comment [facility] Work Phone: [phone] Comment on above: CONFIRMATORY TESTING FOR ALL POSITIVE URINE DRUG SCREENRESULTS WILL ONLY BE SENT OUT UPON PHYSICIAN ORDER. VISTA Urine Drug Screen methods provide only preliminaryanalytical test results. A more specific alternate chemicalmethod must be used in order to obtain a confirmedanalytical result. Gas chromatography/mass spectrometery(GC/MS) is the preferred confirmatory method. Clinicalconsideration and professional judgement should be appliedto any drug of abuse test result, particularly whenpreliminary positive results are used. URINE TCA TESTING MUST BE ORDERED SEPARATELY. USE TESTMNEMONIC: [facility] Urine Methadone Screen Negative < 300 ng/mL [facility] Work Phone: Platelets bldon 10-06-2021 Platelets (Bld) [#/Vol] 232 10*3/uL 150-450 [facility] Work Phone: [phone] Serum or plasma calcium luciana urement (mass/volume)on 10-06-2021 Calcium [Mass/Vol] 8.5 mg/dL 8.5-10.1 [facility] Work Phone: Serum or plasma creatinine m easurement (mass/volume)on 10-06-2021 Creatinine [Mass/Vol] 1.16 mg/dL 0.70-1.30 [facility] Work Phone: Comment on above: The validity of the calculated GFR & GFRAA in patients over 70 years has not been determined. Clinical correlation is essential. Serum or plasma urea nitroge n measurement (mass/volume)on 10-06-2021 Urea nitrogen [Mass/Vol] 5 mg/dL 7-18 [facility] Work Phone: [phone] Thin prep Papanicolaou smear with manual screeningon 10-06-2021 Thin prep Papanicolaou smear with manual screening 8 5-15 [facility] Work Phone: [phone] Urine phencyclidine (PCP) de tectionon 10-06-2021 Phencyclidine Ql (U) Negative < 25 ng/mL [facility] Work Phone: [phone] Absolute lymphocyte counton 09-30-2021 Lymphocytes Auto (Unsp spec) [#/Vol] 1.63 10*3/uL 0.83-4.51 [facility] Work Phone: [phone] Basophil percentageon 2021 Basophils/100 WBC (Bld) 0.7 % 0-1 [facility] Work Phone: [phone] Bilirubin [Mass/Vol] 0.40 mg/dL 0.20-1.00 [facility] Work Phone: Comment on above: For patients on eltr ombopag therapy, use of Dimension [place] TBIL is not recommended. Chloride [Moles/Vol] 97 mmol/L 98-107 [facility] Work Phone: Eosinophils/100 WBC (Bld) 0.4 % 0-5 [facility] Work Phone: Glucose [Mass/Vol] 221 mg/dL 74-106 [facility] Work Phone: Comment on above: Glucose result great er than or equal to 200 mg/dLsuggests DIABETES MELLITUS per A.D.A. criteria. Neutrophils (Bld) [#/Vol] 5.1 10*3/uL 2.0-7.7 [facility] Work Phone: Neutrophils/100 WBC (Bld) 69.1 % 47-70 [facility] Work Phone: Potassium [Moles/Vol] 3.2 mmol/L 3.5-5.1 [facility] Work Phone: Protein [Mass/Vol] 6.1 g/dL 6.4-8.2 [facility] Work Phone: Sodium [Moles/Vol] 135 mmol/L 136-145 [facility] Work Phone: WBC (Bld) [#/Vol] 7.4 10*3/uL 4.4-11.0 [facility] Work Phone: Blood erythrocytes count (nu mber/volume)on 09-30-2021 RBC (Bld) [#/Vol] 3.92 10*6/uL 4.6-6.[address] [facility] Work Phone: Blood hemoglobin measurement (mass/volume)on 09-30-2021 Hemoglobin (Bld) [Mass/Vol] 13.7 g/dL 13.0-16.5 [facility] Work Phone: Blood lymphocytes/100 leukoc yteson 09-30-2021 Lymphocytes/100 WBC (Bld) 22.0 % 19-41 [facility] Work Phone: Blood monocytes/100 leukocyt eson 09-30-2021 Monocytes/100 WBC (Bld) 7.3 % 0-10 [facility] Work Phone: Blood platelet mean volumeon 09-30-2021 Platelet mean volume (Bld) [Entitic vol] 10.4 fL 6.2-12.0 [facility] Work Phone: Determination of erythrocyte mean corpuscular volume (MCV)on 09-30-2021 MCV (RBC) [Entitic vol] 100.3 fL 80-94 [facility] Work Phone: Hematocrit Auto (Bld) [Volum e fraction]on 09-30-2021 Hematocrit (Bld) [Volume fraction] 39.3 % 40-54 [facility] Work Phone: Laboratory - Chemistry and C hemistry - challengeon 09-30-2021 ALP [Catalytic activity/Vol] 128 U/L 45-117 [facility] Work Phone: ALT [Catalytic activity/Vol] 72 U/L 16-61 [facility] Work Phone: CO2 [Moles/Vol] 24.0 mmol/L 21.0-32.0 [facility] Work Phone: Globulin (S) [Mass/Vol] 3.3 g/dL 2.2-4.2 [facility] Work Phone: Urea nitrogen/Creatinine [Mass ratio] 8.7 mg/mg 10-20 [facility] Work Phone: Laboratory - Hematology and Cell countson 09-30-2021 Erythrocyte distribution width (RBC) [Entitic vol] 49.8 fL 35.1-43.9 [facility] Work Phone: Erythrocyte distribution width (RBC) [Ratio] 13.5 % 11.6-14.6 [facility] Work Phone: Immature granulocytes/100 WBC (Bld) 0.500 % 0.0-0.9 [facility] Work Phone: Comment on above: IG% - Immature Granu locytes (promyelocytes, myelocytes and metamyelocytes) > 1% indicates that a LEFT SHIFT is Present. MCH (RBC) [Entitic mass] 34.9 pg 27.0-32.0 [facility] Work Phone: Nucleated RBC/100 WBC (Bld) [Ratio] 0 % 0-5 [facility] Work Phone: [phone] MCHC Auto (RBC) [Mass/Vol]on 09-30-2021 MCHC (RBC) [Mass/Vol] 34.9 g/dL 32-36 [facility] Work Phone: No Panel Informationon 09-30 Estimated Creatinine Clearance Calc 55.84 ml/min [facility] Work Phone: Estimated GFR (MDRD) Amer 68 mL/min >60 [facility] Work Phone: Comment on above: GFR Calc Estimated GFR (MDRD) Non-Af Amer 56 mL/min >60 [facility] Work Phone: Comment on above: Non- GFR Calc Ethyl Alcohol Level 141.0 mg/dL [facility] Work Phone: Comment on above: The serum:whole bloo d ethanol ratio is approximately 1.14and varies slightly with hematocrit. Medical Alcohol reference interval and critical value innon-tolerant individuals; 50 - 100 Impairment 100 Intoxication 100 - 250 Severe Poisoning 250 - 400 Deep/possible fatal coma Troponin I High Sensitivity 34 pg/mL 3.0-78.0 [facility] Work Phone: Comment on above: Please Note: New Kelly t Units and Gender Specific Reference Ranges. For more information see Policy Stat Procedure [place] High Sensitivity Troponin (TNIH) and attachments. Platelets bldon 09-30-2021 Platelets (Bld) [#/Vol] 191 10*3/uL 150-450 [facility] Work Phone: Serum or plasma albumin luciana urement (mass/volume)on 09-30-2021 Albumin [Mass/Vol] 2.8 g/dL 3.2-5.0 [facility] Work Phone: [phone] Serum or plasma albumin/glob ulin mass ratioon 09-30-2021 Albumin/Globulin [Mass ratio] 0.8 {ratio} 0.9-2.4 [facility] Work Phone: Serum or plasma calcium luciana urement (mass/volume)on 09-30-2021 Calcium [Mass/Vol] 8.4 mg/dL 8.5-10.1 [facility] Work Phone: [phone] Serum or plasma creatinine m easurement (mass/volume)on 09-30-2021 Creatinine [Mass/Vol] 1.38 mg/dL 0.70-1.30 [facility] Work Phone: Comment on above: The validity of the calculated GFR & GFRAA in patients over 70 years has not been determined. Clinical correlation is essential. Serum or plasma urea nitroge n measurement (mass/volume)on 09-30-2021 Urea nitrogen [Mass/Vol] 12 mg/dL 7-18 [facility] Work Phone: Thin prep Papanicolaou smear with manual screeningon 09-30-2021 Thin prep Papanicolaou smear with manual screening 98 U/L 15-37 [facility] Work Phone: Thin prep Papanicolaou smear with manual screening 14 5-15 [facility] Work Phone: LABORATORYOrdered By: Ade Marion on 08-06-2021 Albumin BCP dye [Mass/Vol] 3.9 G/dL Invalid Interpretation Code 3.5 - 5.0 G/dL AO ADM SS Albumin/Globulin [Mass ratio] 1.4 {ratio} Invalid Interpretation Code 1.1 - 2.5 ratio AO ADM SS ALP [Catalytic activity/Vol] 104 U/L Invalid Interpretation Code 40 - 135 U/L AO ADM SS ALT With P-5'-P [Catalytic activity/Vol] 25 U/L Invalid Interpretation Code 16 - 63 U/L AO ADM SS AST With P-5'-P [Catalytic activity/Vol] 19 U/L Invalid Interpretation Code 10 - 40 U/L AO ADM SS Bilirubin [Mass/Vol] 0.4 mg/dL Invalid Interpretation Code 0.2 - 1.0 mg/dL AO ADM SS Calcium [Mass/Vol] 8.8 mg/dL Invalid Interpretation Code 8.4 - 10.2 mg/dL AO ADM SS Chloride [Moles/Vol] 99 mmol/L Invalid Interpretation Code 98 - 107 mmol/L AO ADM SS Cholesterol [Mass/Vol] 133 mg/dL Invalid Interpretation Code 0 - 200 mg/dL AO ADM SS Cholesterol in HDL [Mass/Vol] 67 mg/dL Invalid Interpretation Code 40 - 60 mg/dL AO ADM SS Cholesterol in LDL [Mass/Vol] 32 mg/dL Invalid Interpretation Code 0 - 130 mg/dL AO ADM SS CO2 [Moles/Vol] 28 mmol/L Invalid Interpretation Code 22 - 29 mmol/L AO ADM SS Creatinine [Mass/Vol] 1.31 mg/dL Invalid Interpretation Code 0.70 - 1.30 mg/dL AO ADM SS Electrolyte Balance 10.0 mEq/L Invalid Interpretation Code 4.0 - 15.0 mEq/L AO ADM SS Globulin 2.8 G/dL Invalid Interpretation Code AO ADM SS Glucose [Mass/Vol] 179 mg/dL Invalid Interpretation Code 70 - 105 mg/dL AO ADM SS HbA1c (Bld) [Mass fraction] 8.6 % Invalid Interpretation Code 4.3 - 6.4 % AO ADM SS Potassium [Moles/Vol] 4.6 mmol/L Invalid Interpretation Code 3.5 - 5.1 mmol/L AO ADM SS Protein [Mass/Vol] 6.7 G/dL Invalid Interpretation Code 6.4 - 8.2 G/dL AO ADM SS Sodium [Moles/Vol] 137 mmol/L Invalid Interpretation Code 136 - 145 mmol/L AO ADM SS Triglyceride [Mass/Vol] 170 mg/dL Invalid Interpretation Code 0 - 150 mg/dL AO ADM SS Urea nitrogen [Mass/Vol] 10 mg/dL Invalid Interpretation Code 7 - 18 mg/dL AO ADM SS Urea nitrogen/Creatinine [Mass ratio] 8 ratio Invalid Interpretation Code 7 - 27 ratio AO ADM SS LABORATORYOrdered By: Andres Lorenzo on 08-06-2021 Basophil, Absolute 0.1 103/mcL Invalid Interpretation Code 0.0 - 0.2 10^3/mcL AO Workflow SS Basophils/100 WBC (Bld) 1.1 % Invalid Interpretation Code 0.0 - 2.5 % AO Workflow SS Eosinophil, Absolute 0.1 103/mcL Invalid Interpretation Code 0.0 - 0.4 10^3/mcL AO Workflow SS Eosinophils/100 WBC (Bld) 1.6 % Invalid Interpretation Code 0.0 - 7.0 % AO Workflow SS Erythrocyte distribution width (RBC) [Ratio] 14.4 % Invalid Interpretation Code 11.5 - 14.5 % AO Workflow SS Hematocrit (Bld) [Volume fraction] 38.5 % Invalid Interpretation Code 42.0 - 52.0 % AO Workflow SS Hemoglobin (Bld) [Mass/Vol] 13.1 G/dL Invalid Interpretation Code 14.0 - 18.0 G/dL AO Workflow SS Lymphocyte, Absolute 1.5 103/mcL Invalid Interpretation Code 0.8 - 3.9 10^3/mcL AO Workflow SS Lymphocytes/100 WBC (Bld) 23.4 % Invalid Interpretation Code 10.0 - 50.0 % AO Workflow SS MCH (RBC) [Entitic mass] 33.9 pg Invalid Interpretation Code 27.0 - 31.2 pg AO Workflow SS MCHC 34.1 G/dL Invalid Interpretation Code 31.8 - 35.4 G/dL AO Workflow SS MCV (RBC) [Entitic vol] 99.2 fL Invalid Interpretation Code 80.0 - 94.0 fL AO Workflow SS Monocyte, Absolute 0.5 103/mcL Invalid Interpretation Code 0.2 - 1.0 10^3/mcL AO Workflow SS Monocytes/100 WBC (Bld) 8.4 % Invalid Interpretation Code 1.7 - 13.0 % AO Workflow SS Neutrophil, Absolute 4.1 103/mcL Invalid Interpretation Code 2.9 - 6.2 10^3/mcL AO Workflow SS Neutrophils/100 WBC (Bld) 65.5 % Invalid Interpretation Code 37.0 - 80.0 % AO Workflow SS Platelet mean volume (Bld) [Entitic vol] 9.2 fL Invalid Interpretation Code 7.4 - 10.4 fL AO Workflow SS Platelets (Bld) [#/Vol] 203 103/mcL Invalid Interpretation Code 130 - 400 10^3/mcL AO Workflow SS RBC (Bld) [#/Vol] 3.88 106/mcL Invalid Interpretation Code 4.04 - 6.13 10^6/mcL AO Workflow SS WBC 6.2 103/mcL Invalid Interpretation Code 4.6 - 10.8 10^3/mcL AO Workflow SS LABORATORYOrdered By: SYSTEM SYSTEM on 08-06-2021 GFR 68 ml/min/1.73sqm Invalid Interpretation Code AO Chemistry S GFR Non- 56 ml/min/1.73sqm Invalid Interpretation Code AO Chemistry S Monocyte distribution width Auto (Bld) [Entitic vol] Not Performed 1 *NA* (08/06/21 7:37 AM) Invalid Interpretation Code 0.00 - 20.00 AO Hematology S Comment on above: Result Comment: MDW testing performed only on adult ER patients between the ages of 18-89 years. Glucose Glucometer (BldC) [M ass/Vol]on 06-01-2021 Glucose [Mass/Vol] 202 mg/dL 74-106 [facility] Work Phone: Comment on above: MANAGEMENT OF PATIEN T CARE PER NURSING PROTOCOL Absolute lymphocyte counton 05-29-2021 Lymphocytes Auto (Unsp spec) [#/Vol] 0.95 10*3/uL 0.83-4.51 [facility] Work Phone: Acetaminophen level (mass/vo lume)on 05-29-2021 Acetaminophen (Unsp spec) [Mass/Vol] < 2.0 ug/mL 10.0-30.0 [facility] Work Phone: Basophil percentageon 2021 Basophils/100 WBC (Bld) 1.1 % 0-1 [facility] Work Phone: Bilirubin [Mass/Vol] 0.20 mg/dL 0.20-1.00 [facility] Work Phone: Comment on above: For patients on eltr ombopag therapy, use of Dimension [place] TBIL is not recommended. Chloride [Moles/Vol] 102 mmol/L 98-107 [facility] Work Phone: Eosinophils/100 WBC (Bld) 0.9 % 0-5 [facility] Work Phone: Glucose [Mass/Vol] 323 mg/dL 74-106 [facility] Work Phone: Comment on above: Glucose result great er than or equal to 200 mg/dLsuggests DIABETES MELLITUS per A.D.A. criteria. Neutrophils (Bld) [#/Vol] 5.6 10*3/uL 2.0-7.7 [facility] Work Phone: Neutrophils/100 WBC (Bld) 76.3 % 47-70 [facility] Work Phone: Potassium [Moles/Vol] 3.8 mmol/L 3.5-5.1 [facility] Work [facility]: Protein [Mass/Vol] 6.7 g/dL 6.4-8.2 [facility] Work Phone: Sodium [Moles/Vol] 141 mmol/L 136-145 [facility] Work Phone: WBC (Bld) [#/Vol] 7.4 10*3/uL 4.4-11.0 [facility] Work Phone: Blood erythrocytes count (nu mber/volume)on 05-29-2021 RBC (Bld) [#/Vol] 4.06 10*6/uL [facility]6-[facility]: Blood hemoglobin measurement (mass/volume)on 05-29-2021 Hemoglobin (Bld) [Mass/Vol] 13.0 g/dL 13.0-16.5 [facility] Work Phone: Blood lymphocytes/100 leukoc yteson 05-29-2021 Lymphocytes/100 WBC (Bld) 12.9 % 19-41 [facility] Work Phone: Blood monocytes/100 leukocyt eson 05-29-2021 Monocytes/100 WBC (Bld) 8.3 % 0-10 [facility] Work Phone: Blood platelet mean volumeon 05-29-2021 Platelet mean volume (Bld) [Entitic vol] 10.9 fL 6.2-12.0 [facility] Work Phone: Determination of erythrocyte mean corpuscular volume (MCV)on 05-29-2021 MCV (RBC) [Entitic vol] 94.3 fL 80-94 [facility] Work Phone: Direct bilirubinon 2 Bilirubin.direct [Mass/Vol] 0.12 mg/dL 0.00-0.30 [facility] Work Phone: Hematocrit Auto (Bld) [Volum e fraction]on 05-29-2021 Hematocrit (Bld) [Volume fraction] 38.3 % 40-54 [facility] Work Phone: Laboratory - Chemistry and C hemistry - challengeon 05-29-2021 ALP [Catalytic activity/Vol] 105 U/L 45-117 [facility] Work Phone: ALT [Catalytic activity/Vol] 23 U/L 16-61 [facility] Work Phone: [phone] CO2 [Moles/Vol] 29.0 mmol/L 21.0-32.0 [facility] Work Phone: Globulin (S) [Mass/Vol] 3.2 g/dL 2.2-4.2 [facility] Work Phone: Urea nitrogen/Creatinine [Mass ratio] 10.9 mg/mg 10-20 [facility] Work Phone: Laboratory - Drug toxicology on 05-29-2021 Amphetamines Ql (U) Negative [facility] Work Phone: Benzodiazepines Ql (U) Negative [facility] Work Phone: [phone] Cannabinoids Screen Ql (U) Negative [facility] Work Phone: Cocaine Ql (U) Negative [facility] Work Phone: Opiates Ql (U) Negative [facility] Work Phone: Laboratory - Hematology and Cell countson 05-29-2021 Erythrocyte distribution width (RBC) [Entitic vol] 48.4 fL 35.1-43.9 [facility] Work Phone: Erythrocyte distribution width (RBC) [Ratio] 13.9 % 11.6-14.6 [facility] Work Phone: Immature granulocytes/100 WBC (Bld) 0.500 % 0.0-0.9 [facility] Work Phone: [phone] Comment on above: IG% - Immature Granu locytes (promyelocytes, myelocytes and metamyelocytes) > 1% indicates that a LEFT SHIFT is Present. MCH (RBC) [Entitic mass] 32.0 pg 27.0-32.0 [facility] Work Phone: [phone] Nucleated RBC/100 WBC (Bld) [Ratio] 0 % 0-5 [facility] Work Phone: [phone] MCHC Auto (RBC) [Mass/Vol]on 05-29-2021 MCHC (RBC) [Mass/Vol] 33.9 g/dL 32-36 [facility] Work Phone: [phone] Panel Informationon 05-29 MDMA (Ecstasy) Screen Negative [facility] Work Phone: [phone] Urine Barbiturates Screen Negative [facility] Work Phone: [phone] Urine Drug Screen Comment [facility] Work Phone: [phone] Comment on above: CONFIRMATORY TESTING FOR ALL POSITIVE URINE DRUG SCREENRESULTS WILL ONLY BE SENT OUT UPON PHYSICIAN ORDER. VISTA Urine Drug Screen methods provide only preliminaryanalytical test results. A more specific alternate chemicalmethod must be used in order to obtain a confirmedanalytical result. Gas chromatography/mass spectrometery(GC/MS) is the preferred confirmatory method. Clinicalconsideration and professional judgement should be appliedto any drug of abuse test result, particularly whenpreliminary positive results are used. URINE TCA TESTING MUST BE ORDERED SEPARATELY. USE TESTMNEMONIC: [facility] Urine Methadone Screen Negative [facility] Work Phone: [phone] Estimated Creatinine Clearance Calc 71.63 ml/min [facility] Work Phone: [phone] Estimated GFR (MDRD) Amer 81 mL/min >60 [facility] Work Phone: [phone] Comment on above: GFR Calc Estimated GFR (MDRD) Non-Af Amer 67 mL/min >60 [facility] Work Phone: Comment on above: Non- GFR Calc Ethyl Alcohol Level 46.0 mg/dL [facility] Work Phone: Comment on above: The serum:whole bloo d ethanol ratio is approximately 1.14and varies slightly with hematocrit. Medical Alcohol reference interval and critical value innon-tolerant individuals; 50 - 100 Impairment 100 Intoxication 100 - 250 Severe Poisoning 250 - 400 Deep/possible fatal coma Platelets bldon 05-29-2021 Platelets (Bld) [#/Vol] 220 10*3/uL 150-450 [facility] Work Phone: Serum or plasma albumin luciana urement (mass/volume)on 05-29-2021 Albumin [Mass/Vol] 3.5 g/dL 3.2-5.0 [facility] Work Phone: Serum or plasma calcium luciana urement (mass/volume)on 05-29-2021 Calcium [Mass/Vol] 8.2 mg/dL 8.5-10.1 [facility] Work Phone: Serum or plasma creatinine m easurement (mass/volume)on 05-29-2021 Creatinine [Mass/Vol] 1.19 mg/dL 0.70-1.30 [facility] Work Phone: Comment on above: The validity of the calculated GFR & GFRAA in patients over 70 years has not been determined. Clinical correlation is essential. Serum or plasma salicylates measurement (mass/volume)on 05-29-2021 Salicylates [Mass/Vol] 12.6 mg/dL 2.8-20.[address] [facility] Work Phone: Serum or plasma urea nitroge n measurement (mass/volume)on 05-29-2021 Urea nitrogen [Mass/Vol] 13 mg/dL 7-18 [facility] Work Phone: [phone] Thin prep Papanicolaou smear with manual screeningon 05-29-2021 Thin prep Papanicolaou smear with manual screening 33 U/L 15-37 [facility] Work Phone: [phone] Thin prep Papanicolaou smear with manual screening 10 5-15 [facility] Work Phone: Urine phencyclidine (PCP) de tectionon 05-29-2021 Phencyclidine Ql (U) Negative [facility] Work Phone: Glucose Glucometer (BldC) [M ass/Vol]on 05-22-2021 Glucose [Mass/Vol] 213 mg/dL 74-106 [facility] Work Phone: Comment on above: MANAGEMENT OF PATIEN T CARE PER NURSING PROTOCOL No Panel Informationon 05-22 Ethyl Alcohol Level 101.0 mg/dL [facility] Work Phone: Comment on above: The serum:whole bloo d ethanol ratio is approximately 1.14and varies slightly with hematocrit. Medical Alcohol reference interval and critical value innon-tolerant individuals; 50 - 100 Impairment 100 Intoxication 100 - 250 Severe Poisoning 250 - 400 Deep/possible fatal coma Absolute lymphocyte counton 05-21-2021 Lymphocytes Auto (Unsp spec) [#/Vol] 1.24 10*3/uL 0.83-4.51 [facility] Work Phone: Basophil percentageon 2021 Basophils/100 WBC (Bld) 2.0 % 0-1 [facility] Work Phone: Bilirubin [Mass/Vol] 0.20 mg/dL 0.20-1.00 [facility] Work Phone: Comment on above: For patients on eltr ombopag therapy, use of Dimension [place] TBIL is not recommended. Chloride [Moles/Vol] 105 mmol/L 98-107 [facility] Work Phone: Eosinophils/100 WBC (Bld) 2.2 % 0-5 [facility] Work Phone: [phone] Glucose [Mass/Vol] 440 mg/dL 74-106 [facility] Work Phone: Comment on above: Glucose result great er than or equal to 200 mg/dLsuggests DIABETES MELLITUS per A.D.A. criteria. Neutrophils (Bld) [#/Vol] 4.0 10*3/uL 2.0-7.7 [facility] Work Phone: Neutrophils/100 WBC (Bld) 66.7 % 47-70 [facility] Work Phone: Potassium [Moles/Vol] 3.5 mmol/L 3.5-5.1 [facility] Work Phone: Protein [Mass/Vol] 6.7 g/dL 6.4-8.2 [facility] Work Phone: Sodium [Moles/Vol] 142 mmol/L 136-145 [facility] [facility] Work Phone: WBC (Bld) [#/Vol] 6.0 10*3/uL 4.4-11.0 [facility] Work Phone: Blood erythrocytes count (nu mber/volume)on 05-21-2021 RBC (Bld) [#/Vol] 4.36 10*6/uL 4.6-6.2 [facility] Blood hemoglobin measurement (mass/volume)on 05-21-2021 Hemoglobin (Bld) [Mass/Vol] 14.1 g/dL 13.0-16.5 [facility] Work Phone: Blood lymphocytes/100 leukoc yteson 05-21-2021 Lymphocytes/100 WBC (Bld) 20.5 % 19-41 [facility] Work Phone: Blood monocytes/100 leukocyt eson 05-21-2021 Monocytes/100 WBC (Bld) 8.3 % 0-10 [facility] Work Phone: Blood platelet mean volumeon 05-21-2021 Platelet mean volume (Bld) [Entitic vol] 9.9 fL 6.2-12.0 [facility] Work Phone: Determination of erythrocyte mean corpuscular volume (MCV)on 05-21-2021 MCV (RBC) [Entitic vol] 93.8 fL 80-94 [facility] Work Phone: Hematocrit Auto (Bld) [Volum e fraction]on 05-21-2021 Hematocrit (Bld) [Volume fraction] 40.9 % 40-54 [facility] Work Phone: INR in Blood by Coagulation assayon 05-21-2021 INR Coag (Bld) [Relative time] 1.1 {INR} [facility] Work Phone: Laboratory - Chemistry and C hemistry - challengeon 05-21-2021 ALP [Catalytic activity/Vol] 109 U/L 45-117 [facility] Work Phone: ALT [Catalytic activity/Vol] 23 U/L 16-61 [facility] Work Phone: [phone] CO2 [Moles/Vol] 27.0 mmol/L 21.0-32.0 [facility] Work Phone: [phone] Globulin (S) [Mass/Vol] 3.3 g/dL 2.2-4.2 [facility] Work Phone: Urea nitrogen/Creatinine [Mass ratio] 8.5 mg/mg 10-20 [facility] Work Phone: Laboratory - Coagulationon 0 05-21-2021 PT Coag (PPP) [Time] 13.9 s 11.7-14.9 [facility] Work Phone: Laboratory - Drug toxicology on 05-21-2021 Amphetamines Ql (U) Negative [facility] Work Phone: Benzodiazepines Ql (U) Negative [facility] Work Phone: [phone] Cannabinoids Screen Ql (U) Negative [facility] Work Phone: Cocaine Ql (U) Negative [facility] Work Phone: [phone] Opiates Ql (U) Negative [facility] Work Phone: [phone] Laboratory - Hematology and Cell countson 05-21-2021 Erythrocyte distribution width (RBC) [Entitic vol] 48.5 fL 35.1-43.9 [facility] Work Phone: [phone] Erythrocyte distribution width (RBC) [Ratio] 13.9 % 11.6-14.6 [facility] Work Phone: [phone] Immature granulocytes/100 WBC (Bld) 0.300 % 0.0-0.9 [facility] Work Phone: [phone] Comment on above: IG% - Immature Granu locytes (promyelocytes, myelocytes and metamyelocytes) > 1% indicates that a LEFT SHIFT is Present. MCH (RBC) [Entitic mass] 32.3 pg 27.0-32.0 [facility] Work Phone: [phone] Nucleated RBC/100 WBC (Bld) [Ratio] 0 % 0-5 [facility] Work Phone: [phone] MCHC Auto (RBC) [Mass/Vol]on 05-21-2021 MCHC (RBC) [Mass/Vol] 34.5 g/dL 32-36 [facility] Work Phone: No Panel Informationon 05-21 MDMA (Ecstasy) Screen Negative [facility] Work Phone: [phone] Urine Barbiturates Screen Negative [facility] Work Phone: [phone] Urine Drug Screen Comment [facility] Work Phone: [phone] Comment on above: CONFIRMATORY TESTING FOR ALL POSITIVE URINE DRUG SCREENRESULTS WILL ONLY BE SENT OUT UPON PHYSICIAN ORDER. VISTA Urine Drug Screen methods provide only preliminaryanalytical test results. A more specific alternate chemicalmethod must be used in order to obtain a confirmedanalytical result. Gas chromatography/mass spectrometery(GC/MS) is the preferred confirmatory method. Clinicalconsideration and professional judgement should be appliedto any drug of abuse test result, particularly whenpreliminary positive results are used. URINE TCA TESTING MUST BE ORDERED SEPARATELY. USE TESTMNEMONIC: [facility] Urine Methadone Screen Negative [facility] Work Phone: [phone] Estimated Creatinine Clearance Calc 68.24 ml/min [facility] Work Phone: [phone] Estimated GFR (MDRD) Amer 81 mL/min >60 [facility] Work Phone: [phone] Comment on above: GFR Calc Estimated GFR (MDRD) Non-Af Amer 67 mL/min >60 [facility] Work Phone: Comment on above: Non- GFR Calc Platelets bldon 05-21-2021 Platelets (Bld) [#/Vol] 232 10*3/uL 150-450 [facility] Work Phone: [phone] Serum or plasma albumin luciana urement (mass/volume)on 05-21-2021 Albumin [Mass/Vol] 3.4 g/dL 3.2-5.0 [facility] Work Phone: [phone] Serum or plasma albumin/glob ulin mass ratioon 05-21-2021 Albumin/Globulin [Mass ratio] 1.0 {ratio} 0.9-2.4 [facility] Work Phone: [phone] Serum or plasma calcium luciana urement (mass/volume)on 05-21-2021 Calcium [Mass/Vol] 8.2 mg/dL 8.5-10.1 [facility] Work Phone: [phone] Serum or plasma creatinine m easurement (mass/volume)on 05-21-2021 Creatinine [Mass/Vol] 1.18 mg/dL 0.70-1.30 [facility] Work Phone: Comment on above: The validity of the calculated GFR & GFRAA in patients over 70 years has not been determined. Clinical correlation is essential. Serum or plasma urea nitroge n measurement (mass/volume)on 05-21-2021 Urea nitrogen [Mass/Vol] 10 mg/dL 7-18 [facility] Work Phone: [phone] Thin prep Papanicolaou smear with manual screeningon 05-21-2021 Thin prep Papanicolaou smear with manual screening 18 U/L 15-37 [facility] Work Phone: [phone] Thin prep Papanicolaou smear with manual screening 10 5-15 [facility] Work Phone: [phone] Urine phencyclidine (PCP) de tectionon 05-21-2021 Phencyclidine Ql (U) Negative [facility] Work Phone: [phone] Absolute lymphocyte counton 05-05-2021 Lymphocytes Auto (Unsp spec) [#/Vol] 1.28 10*3/uL 0.83-4.51 [facility] Work Phone: Basophil percentageon 2021 Basophils/100 WBC (Bld) 0.9 % 0-1 [facility] Work Phone: Chloride [Moles/Vol] 106 mmol/L 98-107 [facility] Work Phone: Eosinophils/100 WBC (Bld) 2.5 % 0-5 [facility] Work Phone: Glucose [Mass/Vol] 96 mg/dL 74-106 [facility] Work Phone: Neutrophils (Bld) [#/Vol] 4.7 10*3/uL 2.0-7.7 [facility] Work Phone: Neutrophils/100 WBC (Bld) 68.2 % 47-70 [facility] Work Phone: Potassium [Moles/Vol] 3.7 mmol/L 3.5-5.1 [facility] Work Phone: Sodium [Moles/Vol] 139 mmol/L 136-145 [facility] Work Phone: WBC (Bld) [#/Vol] 6.9 10*3/uL 4.4-11.0 [facility] Work Phone: Blood erythrocytes count (nu mber/volume)on 05-05-2021 RBC (Bld) [#/Vol] 3.88 10*6/uL 4.6-6.[address] [facility] Work Phone: Blood hemoglobin measurement (mass/volume)on 05-05-2021 Hemoglobin (Bld) [Mass/Vol] 12.4 g/dL 13.0-16.5 [facility] Work Phone: Blood lymphocytes/100 leukoc yteson 05-05-2021 Lymphocytes/100 WBC (Bld) 18.6 % 19-41 [facility] Work Phone: Blood monocytes/100 leukocyt eson 05-05-2021 Monocytes/100 WBC (Bld) 9.5 % 0-10 [facility] Work Phone: [phone] Blood platelet mean volumeon 05-05-2021 Platelet mean volume (Bld) [Entitic vol] 11.0 fL 6.2-12.0 [facility] Work Phone: [phone] Determination of erythrocyte mean corpuscular volume (MCV)on 05-05-2021 MCV (RBC) [Entitic vol] 93.6 fL 80-94 [facility] Work Phone: [phone] Glucose Glucometer (BldC) [M ass/Vol]on 05-05-2021 Glucose [Mass/Vol] 183 mg/dL 74-106 [facility] Work Phone: [phone] Comment on above: MANAGEMENT OF PATIEN T CARE PER NURSING PROTOCOL Hematocrit Auto (Bld) [Volum e fraction]on 05-05-2021 Hematocrit (Bld) [Volume fraction] 36.3 % 40-54 [facility] Work Phone: [phone] Laboratory - Chemistry and C hemistry - challengeon 05-05-2021 CO2 [Moles/Vol] 29.0 mmol/L 21.0-32.0 [facility] Work Phone: [phone] Urea nitrogen/Creatinine [Mass ratio] 6.7 mg/mg 10-20 [facility] Work Phone: [phone] Laboratory - Hematology and Cell countson 05-05-2021 Erythrocyte distribution width (RBC) [Entitic vol] 47.8 fL 35.1-43.9 [facility] Work Phone: [phone] Erythrocyte distribution width (RBC) [Ratio] 13.9 % 11.6-14.6 [facility] Work Phone: [phone] Immature granulocytes/100 WBC (Bld) 0.300 % 0.0-0.9 [facility] Work Phone: [phone] Comment on above: IG% - Immature Granu locytes (promyelocytes, myelocytes and metamyelocytes) > 1% indicates that a LEFT SHIFT is Present. MCH (RBC) [Entitic mass] 32.0 pg 27.0-32.0 [facility] Work Phone: Nucleated RBC/100 WBC (Bld) [Ratio] 0 % 0-5 [facility] Work Phone: MCHC Auto (RBC) [Mass/Vol]on 05-05-2021 MCHC (RBC) [Mass/Vol] 34.2 g/dL 32-36 [facility] Work Phone: No Panel Informationon 05-05 Estimated Creatinine Clearance Calc 79.39 ml/min [facility] Work Phone: Estimated GFR (MDRD) Amer 94 mL/min >60 [facility] Work Phone: Comment on above: GFR Calc Estimated GFR (MDRD) Non-Af Amer 78 mL/min >60 [facility] Work Phone: Comment on above: Non- GFR Calc Platelets bldon 05-05-2021 Platelets (Bld) [#/Vol] 192 10*3/uL 150-450 [facility] Work Phone: Serum or plasma calcium luciana urement (mass/volume)on 05-05-2021 Calcium [Mass/Vol] 8.1 mg/dL 8.5-10.1 [facility] Work Phone: [phone] Serum or plasma creatinine m easurement (mass/volume)on 05-05-2021 Creatinine [Mass/Vol] 1.04 mg/dL 0.70-1.30 [facility] Work Phone: Comment on above: The validity of the calculated GFR & GFRAA in patients over 70 years has not been determined. Clinical correlation is essential. Serum or plasma urea nitroge n measurement (mass/volume)on 05-05-2021 Urea nitrogen [Mass/Vol] 7 mg/dL 7-18 [facility] Work Phone: Thin prep Papanicolaou smear with manual screeningon 05-05-2021 Thin prep Papanicolaou smear with manual screening 4 5-15 [facility] Work Phone: Absolute lymphocyte counton 05-04-2021 Lymphocytes Auto (Unsp spec) [#/Vol] 0.91 10*3/uL 0.83-4.51 [facility] Work Phone: Basophil percentageon 2021 Basophils/100 WBC (Bld) 0.7 % 0-1 [facility] Work Phone: Chloride [Moles/Vol] 100 mmol/L 98-107 [facility] Work Phone: Eosinophils/100 WBC (Bld) 0.7 % 0-5 [facility] Work Phone: Glucose [Mass/Vol] 122 mg/dL 74-106 [facility] Work Phone: Comment on above: Fasting Glucose resu lt from 100 to 125 mg/dL suggests IMPAIRED HOMEOSTASIS per A.D.A. criteria. Neutrophils (Bld) [#/Vol] 8.5 10*3/uL 2.0-7.7 [facility] Work Phone: Neutrophils/100 WBC (Bld) 81.1 % 47-70 [facility] Work Phone: Potassium [Moles/Vol] 2.9 mmol/L 3.5-5.1 [facility] Work Phone: Sodium [Moles/Vol] 139 mmol/L 136-145 [facility] Work Phone: WBC (Bld) [#/Vol] 10.5 10*3/uL 4.4-11.[address] [facility] Work Phone: Blood erythrocytes count (nu mber/volume)on 05-04-2021 RBC (Bld) [#/Vol] 4.37 10*6/uL 4.6-6.[address] [facility] Work Phone: Blood hemoglobin measurement (mass/volume)on 05-04-2021 Hemoglobin (Bld) [Mass/Vol] 14.1 g/dL 13.0-16.5 [facility] Work Phone: [phone] Blood lymphocytes/100 leukoc yteson 05-04-2021 Lymphocytes/100 WBC (Bld) 8.7 % 19-41 [facility] Work Phone: Blood monocytes/100 leukocyt eson 05-04-2021 Monocytes/100 WBC (Bld) 8.4 % 0-10 [facility] Work Phone: Blood platelet mean volumeon 05-04-2021 Platelet mean volume (Bld) [Entitic vol] 11.4 fL 6.2-12.0 [facility] Work Phone: Determination of erythrocyte mean corpuscular volume (MCV)on 05-04-2021 MCV (RBC) [Entitic vol] 96.1 fL 80-94 [facility] Work Phone: Hematocrit Auto (Bld) [Volum e fraction]on 05-04-2021 Hematocrit (Bld) [Volume fraction] 42.0 % 40-54 [facility] Work Phone: Laboratory - Chemistry and C hemistry - challengeon 05-04-2021 Magnesium [Mass/Vol] 1.7 mg/dL 1.6-2.6 [facility] Work Phone: CO2 [Moles/Vol] 32.0 mmol/L 21.0-32.0 [facility] Work Phone: Urea nitrogen/Creatinine [Mass ratio] 4.8 mg/mg 10-20 [facility] Work Phone: Laboratory - Hematology and Cell countson 05-04-2021 Erythrocyte distribution width (RBC) [Entitic vol] 49.2 fL 35.1-43.9 [facility] Work Phone: Erythrocyte distribution width (RBC) [Ratio] 14.0 % 11.6-14.6 [facility] Work Phone: Immature granulocytes/100 WBC (Bld) 0.400 % 0.0-0.9 [facility] Work Phone: Comment on above: IG% - Immature Granu locytes (promyelocytes, myelocytes and metamyelocytes) > 1% indicates that a LEFT SHIFT is Present. MCH (RBC) [Entitic mass] 32.3 pg 27.0-32.0 [facility] Work Phone: [phone] Nucleated RBC/100 WBC (Bld) [Ratio] 0 % 0-5 [facility] Work Phone: [phone] MCHC Auto (RBC) [Mass/Vol]on 05-04-2021 MCHC (RBC) [Mass/Vol] 33.6 g/dL 32-36 [facility] Work Phone: No Panel Informationon 05-04 Troponin I High Sensitivity 38 pg/mL 3.0-78.0 [facility] Work Phone: Comment on above: Please Note: New Kelly t Units and Gender Specific Reference Ranges. For more information see Policy Stat Procedure [place] High Sensitivity Troponin (TNIH) and attachments. Estimated Creatinine Clearance Calc 68.19 ml/min [facility] Work Phone: Estimated GFR (MDRD) Amer 76 mL/min >60 [facility] Work Phone: Comment on above: GFR Calc Estimated GFR (MDRD) Non-Af Amer 63 mL/min >60 [facility] Work Phone: Comment on above: Non- GFR Calc Troponin I High Sensitivity 42 pg/mL 3.0-78.0 [facility] Work Phone: [phone] Comment on above: Please Note: New Kelly t Units and Gender Specific Reference Ranges. For more information see Policy Stat Procedure [place] High Sensitivity Troponin (TNIH) and attachments. Platelets bldon 05-04-2021 Platelets (Bld) [#/Vol] 240 10*3/uL 150-450 [facility] Work Phone: [phone] Serum or plasma calcium luciana urement (mass/volume)on 05-04-2021 Calcium [Mass/Vol] 8.8 mg/dL 8.5-10.1 [facility] Work Phone: [phone] Serum or plasma creatinine m easurement (mass/volume)on 03-27-2022 Creatinine [Mass/Vol] 1.25 mg/dL 0.70-1.30 [facility] Work Phone: Comment on above: The validity of the calculated GFR & GFRAA in patients over 70 years has not been determined. Clinical correlation is essential. Serum or plasma urea nitroge n measurement (mass/volume)on 05-04-2021 Urea nitrogen [Mass/Vol] 6 mg/dL 7-18 [facility] Work Phone: Thin prep Papanicolaou smear with manual screeningon 05-04-2021 Thin prep Papanicolaou smear with manual screening 7 5-15 [facility] Work Phone: LABORATORYOrdered By: Mercedes Chun on 05-02-2021 Blood Glucose Interventions Notify physician (05/02/21 3:24 PM) [facility] Work Phone: Blood Glucose Testing Reason Routine (05/02/21 3:24 PM) [facility] Work Phone: Glucose [Mass/Vol] 231 mg/dL Invalid Interpretation Code 70 - 110 mg/dL [facility] Work Phone: Blood Glucose Testing Reason Routine (05/02/21 2:40 PM) [facility] Work Phone: Glucose [Mass/Vol] 75 mg/dL Invalid Interpretation Code 70 - 110 mg/dL [facility] Work Phone: Time of Stated Blood Glucose [phone] [facility] Work Phone: Blood Glucose Interventions Notify physician (05/02/21 1:40 PM) [facility] Work Phone: Blood Glucose Testing Reason Routine (05/02/21 1:40 PM) [facility] Work Phone: Glucose [Mass/Vol] 355 mg/dL Invalid Interpretation Code 70 - 110 mg/dL [facility] Work Phone: LABORATORYOrdered By: Rodrigo Tobar on 05-02-2021 Appearance (U) Clear (05/02/21 1:30 PM) Invalid Interpretation Code Clear AO Auto Urine SS Basophil, Absolute 0.00 103/mcL Invalid Interpretation Code 0.00 - 0.19 10^3/mcL AO Auto Heme SS Basophils/100 WBC (Bld) 0.5 % Invalid Interpretation Code 0.0 - 2.5 % AO Auto Heme SS Bilirubin Ql (U) Negative (05/02/21 1:30 PM) Invalid Interpretation Code Negative AO Auto Urine SS Color (U) Yellow (05/02/21 1:30 PM) Invalid Interpretation Code AO Auto Urine SS Eosinophil, Absolute 0.10 103/mcL Invalid Interpretation Code 0.00 - 0.40 10^3/mcL AO Auto Heme SS Eosinophils/100 WBC (Bld) 1.4 % Invalid Interpretation Code 0.0 - 7.0 % AO Auto Heme SS Erythrocyte distribution width (RBC) [Ratio] 14.3 % Invalid Interpretation Code 11.5 - 14.5 % AO Auto Heme SS Glucose Test strip (U) [Mass/Vol] 500 mg/dL Invalid Interpretation Code Negativemg/d L AO Auto Urine SS Hematocrit (Bld) [Volume fraction] 38.6 % Invalid Interpretation Code 42.0 - 52.0 % AO Auto Heme SS Hemoglobin (Bld) [Mass/Vol] 13.3 G/dL Invalid Interpretation Code 14.0 - 18.0 G/dL AO Auto Heme SS Hemoglobin Auto test strip (U) [Mass/Vol] Negative (05/02/21 1:30 PM) Invalid Interpretation Code Negative AO Auto Urine SS Ketones Ql (U) Negative Invalid Interpretation Code Negativemg/d L AO Auto Urine SS Lymphocyte, Absolute 0.80 103/mcL Invalid Interpretation Code 0.77 - 3.85 10^3/mcL AO Auto Heme SS Lymphocytes/100 WBC (Bld) 10.7 % Invalid Interpretation Code 10.0 - 50.0 % AO Auto Heme SS MCH (RBC) [Entitic mass] 32.2 pg Invalid Interpretation Code 27.0 - 31.2 pg AO Auto Heme SS MCHC (RBC) [Mass/Vol] 34.4 G/dL Invalid Interpretation Code 31.8 - 35.4 G/dL AO Auto Heme SS MCV (RBC) [Entitic vol] 93.5 fL Invalid Interpretation Code 80.0 - 94.0 fL AO Auto Heme SS Monocyte, Absolute 0.70 103/mcL Invalid Interpretation Code 0.15 - 1.00 10^3/mcL AO Auto Heme SS Monocytes/100 WBC (Bld) 9.1 % Invalid Interpretation Code 1.7 - 13.0 % AO Auto Heme SS Neutrophil, Absolute 5.60 103/mcL Invalid Interpretation Code 2.85 - 6.16 10^3/mcL AO Auto Heme SS Neutrophils/100 WBC (Bld) 78.3 % Invalid Interpretation Code 37.0 - 80.0 % AO Auto Heme SS Platelet mean volume (Bld) [Entitic vol] 8.6 fL Invalid Interpretation Code 7.4 - 10.4 fL AO Auto Heme SS Platelets (Bld) [#/Vol] 207 103/mcL Invalid Interpretation Code 130 - 400 10^3/mcL AO Auto Heme SS RBC (Bld) [#/Vol] 4.13 106/mcL Invalid Interpretation Code 4.04 - 6.13 10^6/mcL AO Auto Heme SS UA Leuk Est Negative (05/02/21 1:30 PM) Invalid Interpretation Code Negative AO Auto Urine SS UA Nitrite Negative (05/02/21 1:30 PM) Invalid Interpretation Code Negative AO Auto Urine SS UA pH 7.5 (05/02/21 1:30 PM) Invalid Interpretation Code 5.0 - 8.0 AO Auto Urine SS UA Protein Negative Invalid Interpretation Code Negativemg/d L AO Auto Urine SS UA Spec Grav 1.020 (05/02/21 1:30 PM) Invalid Interpretation Code 1.015-1.025 AO Auto Urine SS UA Specimen Type Clean Catch (05/02/21 1:30 PM) Invalid Interpretation Code AO Auto Urine SS UA Urobilinogen 0.2 E.U./dL Invalid Interpretation Code 0.2-1.0E.U./ dL AO Auto Urine SS WBC (Bld) [#/Vol] 7.20 103/mcL Invalid Interpretation Code 4.60 - 10.80 10^3/mcL AO Auto Heme SS LABORATORYOrdered By: Ade Marion on 05-02-2021 Calcium [Mass/Vol] 9.1 mg/dL Invalid Interpretation Code 8.4 - 10.2 mg/dL AO ADM SS Chloride [Moles/Vol] 99 mmol/L Invalid Interpretation Code 98 - 107 mmol/L AO ADM SS CO2 [Moles/Vol] 31 mmol/L Invalid Interpretation Code 22 - 29 mmol/L AO ADM SS Creatinine [Mass/Vol] 1.12 mg/dL Invalid Interpretation Code 0.70 - 1.30 mg/dL AO ADM SS Electrolyte Balance 9.0 mEq/L Invalid Interpretation Code 4.0 - 15.0 mEq/L AO ADM SS Glucose [Mass/Vol] 334 mg/dL Invalid Interpretation Code 70 - 105 mg/dL AO ADM SS Ketones [Mass/Vol] Negative Invalid Interpretation Code Negativemg/d L AO Rapid Testing SS pH (BldV) 7.45 [pH] Invalid Interpretation Code 7.31 - 7.41 AO Blood Gas SS Potassium [Moles/Vol] 3.7 mmol/L Invalid Interpretation Code 3.5 - 5.1 mmol/L AO ADM SS Sodium [Moles/Vol] 139 mmol/L Invalid Interpretation Code 136 - 145 mmol/L AO ADM SS Troponin I.cardiac DL <= 0.01 ng/mL [Mass/Vol] 26.8 ng/L Invalid Interpretation Code 0.0 - 76.2 ng/L AO ADM SS Urea nitrogen [Mass/Vol] 8 mg/dL Invalid Interpretation Code 7 - 18 mg/dL AO ADM SS Urea nitrogen/Creatinine [Mass ratio] 7 ratio Invalid Interpretation Code 7 - 27 ratio AO ADM SS LABORATORYOrdered By: SYSTEM SYSTEM on 05-02-2021 GFR 82 ml/min/1.73sqm Invalid Interpretation Code AO Chemistry S GFR Non- 67 ml/min/1.73sqm Invalid Interpretation Code AO Chemistry S No Panel InformationOrdered By: Mercedes Chun on 05-02-2021 Blood Glucose Interventions Administered food/juice, Administered agent to increase blood sugar, Notify physician (05/02/21 2:40 PM) [facility] Work Phone: LABORATORYOrdered By: Ade Marion on 04-09-2021 Albumin BCP dye [Mass/Vol] 4.1 G/dL Invalid Interpretation Code 3.5 - 5.0 G/dL AO ADM SS Albumin/Globulin [Mass ratio] 1.5 {ratio} Invalid Interpretation Code 1.1 - 2.5 ratio AO ADM SS ALP [Catalytic activity/Vol] 116 U/L Invalid Interpretation Code 40 - 135 U/L AO ADM SS ALT With P-5'-P [Catalytic activity/Vol] 26 U/L Invalid Interpretation Code 16 - 63 U/L AO ADM SS AST With P-5'-P [Catalytic activity/Vol] 18 U/L Invalid Interpretation Code 10 - 40 U/L AO ADM SS Basophil, Absolute 0.10 103/mcL Invalid Interpretation Code 0.00 - 0.19 10^3/mcL AO Auto Heme SS Basophils/100 WBC (Bld) 1.2 % Invalid Interpretation Code 0.0 - 2.5 % AO Auto Heme SS Bilirubin [Mass/Vol] 0.2 mg/dL Invalid Interpretation Code 0.2 - 1.0 mg/dL AO ADM SS Calcium [Mass/Vol] 9.0 mg/dL Invalid Interpretation Code 8.4 - 10.2 mg/dL AO ADM SS Chloride [Moles/Vol] 101 mmol/L Invalid Interpretation Code 98 - 107 mmol/L AO ADM SS Cholesterol [Mass/Vol] 117 mg/dL Invalid Interpretation Code 0 - 200 mg/dL AO ADM SS Cholesterol in HDL [Mass/Vol] 51 mg/dL Invalid Interpretation Code 40 - 60 mg/dL AO ADM SS Cholesterol in LDL [Mass/Vol] 52 mg/dL Invalid Interpretation Code 0 - 130 mg/dL AO ADM SS CO2 [Moles/Vol] 29 mmol/L Invalid Interpretation Code 22 - 29 mmol/L AO ADM SS Creatinine [Mass/Vol] 1.10 mg/dL Invalid Interpretation Code 0.70 - 1.30 mg/dL AO ADM SS Electrolyte Balance 9.0 mEq/L Invalid Interpretation Code 4.0 - 15.0 mEq/L AO ADM SS Eosinophil, Absolute 0.20 103/mcL Invalid Interpretation Code 0.00 - 0.40 10^3/mcL AO Auto Heme SS Eosinophils/100 WBC (Bld) 2.8 % Invalid Interpretation Code 0.0 - 7.0 % AO Auto Heme SS Erythrocyte distribution width (RBC) [Ratio] 14.2 % Invalid Interpretation Code 11.5 - 14.5 % AO Auto Heme SS Globulin 2.8 G/dL Invalid Interpretation Code AO ADM SS Glucose [Mass/Vol] 129 mg/dL Invalid Interpretation Code 70 - 105 mg/dL AO ADM SS HbA1c (Bld) [Mass fraction] 11.0 % Invalid Interpretation Code 4.3 - 6.4 % AO ADM SS Hematocrit (Bld) [Volume fraction] 38.1 % Invalid Interpretation Code 42.0 - 52.0 % AO Auto Heme SS Hemoglobin (Bld) [Mass/Vol] 12.9 G/dL Invalid Interpretation Code 14.0 - 18.0 G/dL AO Auto Heme SS Lymphocyte, Absolute 1.10 103/mcL Invalid Interpretation Code 0.77 - 3.85 10^3/mcL AO Auto Heme SS Lymphocytes/100 WBC (Bld) 15.6 % Invalid Interpretation Code 10.0 - 50.0 % AO Auto Heme SS MCH (RBC) [Entitic mass] 31.5 pg Invalid Interpretation Code 27.0 - 31.2 pg AO Auto Heme SS MCHC (RBC) [Mass/Vol] 33.9 G/dL Invalid Interpretation Code 31.8 - 35.4 G/dL AO Auto Heme SS MCV (RBC) [Entitic vol] 93.0 fL Invalid Interpretation Code 80.0 - 94.0 fL AO Auto Heme SS Monocyte, Absolute 0.60 103/mcL Invalid Interpretation Code 0.15 - 1.00 10^3/mcL AO Auto Heme SS Monocytes/100 WBC (Bld) 8.0 % Invalid Interpretation Code 1.7 - 13.0 % AO Auto Heme SS Neutrophil, Absolute 5.00 103/mcL Invalid Interpretation Code 2.85 - 6.16 10^3/mcL AO Auto Heme SS Neutrophils/100 WBC (Bld) 72.4 % Invalid Interpretation Code 37.0 - 80.0 % AO Auto Heme SS Platelet mean volume (Bld) [Entitic vol] 10.1 fL Invalid Interpretation Code 7.4 - 10.4 fL AO Auto Heme SS Platelets (Bld) [#/Vol] 192 103/mcL Invalid Interpretation Code 130 - 400 10^3/mcL AO Auto Heme SS Potassium [Moles/Vol] 4.6 mmol/L Invalid Interpretation Code 3.5 - 5.1 mmol/L AO ADM SS Prostate specific Ag [Mass/Vol] 0.41 ng/mL Invalid Interpretation Code 0.00 - 4.00 ng/mL AO ADM SS Protein [Mass/Vol] 6.9 G/dL Invalid Interpretation Code 6.4 - 8.2 G/dL AO ADM SS RBC (Bld) [#/Vol] 4.09 106/mcL Invalid Interpretation Code 4.04 - 6.13 10^6/mcL AO Auto Heme SS Sodium [Moles/Vol] 139 mmol/L Invalid Interpretation Code 136 - 145 mmol/L AO ADM SS Triglyceride [Mass/Vol] 72 mg/dL Invalid Interpretation Code 0 - 150 mg/dL AO ADM SS Urea nitrogen [Mass/Vol] 11 mg/dL Invalid Interpretation Code 7 - 18 mg/dL AO ADM SS Urea nitrogen/Creatinine [Mass ratio] 10 ratio Invalid Interpretation Code 7 - 27 ratio AO ADM SS WBC (Bld) [#/Vol] 6.90 103/mcL Invalid Interpretation Code 4.60 - 10.80 10^3/mcL AO Auto Heme SS LABORATORYOrdered By: SYSTEM SYSTEM on 04-09-2021 Cobalamin (Vitamin B12) [Mass/Vol] 669 pg/mL Invalid Interpretation Code 211 - 911 pg/mL AH ADM SS Folate [Mass/Vol] 14.99 ng/mL Invalid Interpretation Code 5.38 - 24.00 ng/mL AH ADM SS GFR 83 ml/min/1.73sqm Invalid Interpretation Code AO Chemistry S GFR Non- 69 ml/min/1.73sqm Invalid Interpretation Code AO Chemistry S EMERGENCY REPORTon 8 EMERGENCY REPORT [facility] EMERGENCY ROOM REPORT NAME ACCOUNT SEX AGE ADMIT DISCHARGE PT MED. RECORD# NUMBER DATE DATE TYPE ANEESH [id number] Yris 57 11/09/17 3 KIMBERLY [id number] ROOM: ER DATE OF : 1960 DICTATING PHYSICIAN: Bandar Daigle CHIEF COMPLAINT: 1. Depression. 2. Agitation. 3. Intoxication. 4. Elevated glucose. HISTORY OF PRESENT ILLNESS: The patient has a history of a diabetic. He said he does not take medications and has not taken them for quite sometime. He has not felt well for the last several weeks. He has been drinking alcohol, and today was quite upset in that somebody sent him a picture of his son, who about a year ago from an overdose. He is now saying he is depressed and he does not want to live. He was brought in by squad and has been quite agitated at times with threatening and yelling. PAST MEDICAL HISTORY: As mentioned significant for diabetes. He has also had heart disease with previous [place]. Apparently, he does have a pacemaker in place. PAST SURGICAL HISTORY: Unsure about previous surgeries. MEDICATIONS: He is taking no medications presently. Unsure what medications he was supposed to be on. ALLERGIES: No apparent allergies. SOCIAL HISTORY: He lives at home. Unsure if he smokes. He does drink alcohol. He lives by himself. REVIEW OF SYSTEMS: Difficult to obtain from the patient as he is at times agitated. He does smell strongly of alcohol. He is at times quite uncooperative. PHYSICAL EXAMINATION: This is a 57-year-old male. He was awake and alert. He at times is a bit combative and agitated and other times will lie back on the gurney almost asleep. He states that his sugar has been very high. He feels depressed and does not want to live. He is not complaining of trouble breathing. He did have some chest pain earlier. His skin reveals no lesions or rashes. HEENT: Pupils equal, round, and reactive to light. Extraocular muscles intact. Nose, mouth, and throat are normal. His neck seems very supple. There is no adenopathy or masses. Lungs are clear bilaterally Page 1 of 2 KIMBERLY MELENDREZ Emergency Room Report without any crackles or wheezes. No respiratory distress. Cardiac exam is regular rhythm without ectopy. He does have about a 2 to 3 systolic murmur heard best at the apex, nonradiating. Abdomen is thin, soft and nontender. He moves all extremities appropriately without any cyanosis, clubbing, or edema, redness, tenderness, or asymmetry. He does have good peripheral pulses. Vital signs: Temperature 97.7, pulse 66, respirations 20, blood pressure 164/98. DIAGNOSTIC DATA: We did proceed to get an EKG which showed sinus rhythm, right bundle branch block, some minimal nonspecific ST changes. A number of laboratory studies were obtained. These returned showing a sodium of 133, potassium 4.4. His glucose was 600. BUN and creatinine were 17 and 1.1. CO2 was normal. Alcohol level was high at 212. Troponin was 0.01. Lactate 18.5. Serum ketones were negative. Serum drug screen was negative. Urinalysis was negative. EMERGENCY DEPARTMENT COURSE AND TREATMENT: His O2 saturation was 97%. He did have an IV per paramedics in route. He initially was really quite agitated and needed to be restrained, but within a minute or 2 calmly talking to him did seem to, at least for a short time, make him more cooperative. However, within a few minutes, he became agitated again at which point I gave him 30 mg of Ketamine IV and that did cause him to lie back and rest. Saturations remained good. DIAGNOSES: 1. Hyperglycemia, very poorly controlled diabetes. 2. Significantly high alcohol level. 3. History of heart disease/coronary artery disease with some transient chest pain earlier. 4. History of depression and is making him suicidal. PLAN/DISPOSITION: I did discuss the case with Dr. Brock, who will arrange transfer to [place]. Dictated By: Bandar Daigle MD 11/09/17 15:22 JOB #: [id number] Transcribed By: am 11/09/17 15:30 Electronically signed by: YO Daigle M.D. 11/17/17 07:38 Page 2 of 2 KIMBERLY MELENDREZ Emergency Room Report Normal [facility] ALCOHOL-BLOOD MEDICALon Ethanol mass conc 212 mg/dL High 0 - 50 [facility] Comment on above: Performed By: #### 2 [id number] ####[facility],[address] [place] [address] CBCon 11-09-2017 Basophils Auto #/vol (Bld) 0.20 x10EE3/UL High 0.00 - 0.10 [facility] Comment on above: Performed By: #### 2 96766 ####[address] [address] Basophils/100 WBC Auto (Bld) 2.8 % High 0.0 - 2.0 [facility] Comment on above: Performed By: #### 2 88117 ####[facility],[address] [place], [place] [id number] CBC Normal [facility] Comment on above: Result Comment: CBC- COMPLETE BLOOD COUNT Performed By: #### 2 49418 ####[facility],[address] [place] [address] Eosinophils Auto #/vol (Bld) 0.20 x10EE3/UL Normal 0.00 - 0.50 [facility] Comment on above: Performed By: #### 2 99452 ####[address] [address] Eosinophils/100 WBC Auto (Bld) 2.6 % Normal 0.0 - 7.0 [facility] Comment on above: Performed By: #### 2 53355 ####[facility],[address] [place], [place] [id number] Erythrocyte distribution width Auto Ratio (RBC) 14.5 % Normal 12.0 - 15.6 [facility] Comment on above: Performed By: #### 2 80593 ####[facility],[address] [place] [address] Hematocrit Auto Volume Fraction (Bld) 38.9 % Low 40.0 - 52.0 [facility] Comment on above: Performed By: #### 2 22264 ####[facility],[address] [place] [address] Hemoglobin mass conc (Bld) 13.0 g/dL Normal 13.0 - 17.5 [facility] Comment on above: Performed By: #### 2 73020 ####[facility],[address] [place] [address] Lymphocytes Auto #/vol (Bld) 2.10 x10EE3/UL Normal 0.80 - 2.80 [facility] Comment on above: Performed By: #### 2 05319 ####[facility],[address] [place] [address] Lymphocytes/100 WBC Auto (Bld) 29.8 % Normal 20.0 - 45.0 [facility] Comment on above: Performed By: #### 2 05694 ####[facility],[address] [place] [address] MANUAL DIFF N/A Normal [facility] Comment on above: Performed By: #### 2 17741 ####[facility],[address] [place] [address] MCH Auto Entitic mass (RBC) 31 pg Normal 27 - 33 [facility] Comment on above: Performed By: #### 2 76208 ####[facility],[address] [place] [address] MCHC Auto mass conc (RBC) 33 X10 3 Normal 32 - 36 [facility] Comment on above: Performed By: #### 2 15211 ####[facility],[address] [place] [address]25 MCV Auto Entitic volume (RBC) 94 fL Normal 81 - 98 [facility] Comment on above: Performed By: #### 2 96887 ####[facility],[address] [place] [address] Monocytes Auto #/vol (Bld) 0.60 x10EE3/UL Normal 0.20 - 1.00 [facility] Comment on above: Performed By: #### 2 25789 ####[facility],[address] [place] [address] MONOS % 8.9 % Normal 0.0 - 10.0 [facility] Comment on above: Performed By: #### 2 61468 ####[facility],[address] [place], [place] [address] Morphology Interp Jose Carlos (Bld) N/A Normal [facility] Comment on above: Result Comment: {CD] Performed By: #### 2 55059 ####[facility],[address] [place] [address] Neutrophils Auto #/vol (Bld) 3.90 x10EE3/UL Normal 1.50 - 7.10 [facility] Comment on above: Performed By: #### 2 89531 ####[facility],[address] [place] [address]609 Neutrophils/100 WBC Auto (Bld) 55.9 % Normal 46.0 - 76.0 [facility] Comment on above: Performed By: #### 2 70573 ####[facility],[address] [place] [address]9999 Platelet mean volume Auto Entitic volume (Bld) 9.2 fL Normal 6.4 - 10.5 [facility] Comment on above: Result Comment: AUTO MATED DIFFERENTIAL Performed By: #### 2 53126 ####[facility],[address] [place] [address] Platelets Auto #/vol (Bld) 225 x10EE3/UL Normal 150 - 450 [facility] Comment on above: Performed By: #### 2 82559 ####[facility],[address] [place] [address] RBC Auto #/vol (Bld) 4.15 x 10EE6/UL Low 4.50 - 6.0 0 [facility] Comment on above: Performed By: #### 2 96964 ####[facility],[address] [place] [address] WBC Auto #/vol (Bld) 7.0 x 10EE3/UL Normal 4.5 - 10.8 [facility] Comment on above: Performed By: #### 2 13250 ####[facility],[address] [place], [place] [id number] CHEST 1 VIEWon 11-09-2017 CHEST 1 VIEW [place] [address] Patient: KIMBERLY MELENDREZ Phone#: : 1960 Age: 57 Gender: M Pt. Type: ER Account: [id number] Location: [facility] Ordering: BANDAR DAIGLE Exam Date: 11/09/2017/12:50 Family Phys: Charge Code: [id number] Physician: [place] Order #: [id number] DLP Dose#: PROCEDURE: X-RAY CHEST 1 VIEW COMPARISON: None. INDICATIONS: Cough FINDINGS: LUNGS: Normal. No significant pulmonary parenchymal abnormalities. VASCULATURE: Normal. Unremarkable pulmonary vasculature. CARDIAC: Normal. No cardiac silhouette abnormality or cardiomegaly. MEDIASTINUM: Normal. No visible mass or adenopathy. PLEURA: Normal. No effusion or pleural thickening. BONES: Normal. No fracture or visible bony lesion. OTHER: The following devices are present in typical position - cardiac pacemaker - sternotomy sutures are present. CONCLUSION: No acute disease. Dictated by: Mildred Arevalo MD on 11/09/2017 at 13:07 Approved by: Mildred Arevalo MD on 11/09/2017 at 13:07 Normal [facility] CMP with eGFRon 11-09-2017 Age Reported 57 years Normal [facility] Comment on above: Performed By: #### 2 52918 ####[facility],[address] [place] [address] Albumin mass conc 3.9 g/dL Normal 3.4 - 4.8 [facility] Comment on above: Performed By: #### 2 32127 ####[address] [address] Albumin/Globulin mass ratio 1.4 {ratio} Normal 0.9 - 1.6 [facility] Comment on above: Performed By: #### 2 78868 ####[facility],[address] [place] [address] ALK PHOS 113 U/L Normal 38 - 126 [facility] Comment on above: Performed By: #### 2 28448 ####[address] [address] ALT/SGPT 66 U/L High 10 - 40 [facility] Comment on above: Performed By: #### 2 40796 ####[address] [address] Anion gap 3 molar conc 11 mmol/L Normal 10 - 20 [facility] Comment on above: Performed By: #### 2 12880 ####[address] [address] AST/SGOT 41 U/L High 13 - 39 [facility] Comment on above: Performed By: #### 2 17324 ####[address] [address] B/C RATIO 15 ratio Normal 0 - 30 [facility] Comment on above: Performed By: #### 2 15096 ####[facility],[address] [place] [address] Bilirubin mass conc 0.3 mg/dL Normal 0.0 - 1.5 [facility] Comment on above: Performed By: #### 2 77697 ####[facility],[address] [place], [place] [address] Calcium mass conc 8.6 mg/dL Normal 8.6 - 10.2 [facility] Comment on above: Performed By: #### 2 53690 ####[facility],[address] [place], [place] [address] Chloride molar conc 100 mmol/L Normal 98 - 107 [facility] Comment on above: Performed By: #### 2 91820 ####[facility],[address] [place], [place] [address] CO2 molar conc 26.3 mmol/L Normal 21.0 - 31.0 [facility] Comment on above: Performed By: #### 2 70898 ####[facility],[address] [place], [place] [address] Creatinine mass conc 1.1 mg/dL Normal 0.7 - 1.3 [facility] Comment on above: Performed By: #### 2 88928 ####[facility],[address] [place], [place] [address] GFR/1.73 sq M predicted among non-blacks MDRD vol rate/area (S/P/Bld) mL/min/{1.73_m2} Normal 60 - 999 [facility] Comment on above: Performed By: #### 2 82234 ####[facility],[address] [place] [address] Result Comment: ACCO RDING TO THE NATIONAL KIDNEY DISEASE EDUCATION PROGRAM(NKDE), A NORMAL eGFRIS A VALUE GREATER THAN OR EQUAL TO 60 ML/MIN/1.73 SQ METERS.CHRONIC KIDNEY DISEASE: <60mL/MIN/1.73 SQ METERSKIDNEY FAILURE: <15mL/MIN/1.73 SQ METERSTHIS TEST SHOULD ONLY BE USED FOR PATIENTS 18 YEARS OF AGE AND OLDER. GFR/1.73 sq M predicted among non-blacks MDRD vol rate/area (S/P/Bld) Normal [facility] Comment on above: Result Comment: COMP REHENSIVE METABOLIC PANEL Performed By: #### 2 69325 ####[facility],[address] [place] [address] Globulin Calculated mass conc (S) 2.7 g/dL Normal 1.5 - 3.8 [facility] Comment on above: Performed By: #### 2 63620 ####[facility],[address] [place] [address] Glucose mass conc 600 mg/dL Critically high 74 - 106 [facility] Comment on above: Result Comment: { CA LLED TO Bernadette/1330{ READ BACK BY [id number]/h/lm Performed By: #### 2 52550 ####[facility],[address] [place] [address] Potassium molar conc 4.1 mmol/L Normal 3.5 - 5.1 [facility] Comment on above: Performed By: #### 2 82198 ####[facility],[address] [place] [address] Protein mass conc 6.6 g/dL Normal 6.4 - 8.3 [facility] Comment on above: Performed By: #### 2 66101 ####[facility],[address] [place] [address] Sodium molar conc 133 mmol/L Low 136 - 145 [facility] Comment on above: Performed By: #### 2 95123 ####[facility],[address] [place] [address] Urea nitrogen mass conc 17 mg/dL Normal 6 - 20 [facility] Comment on above: Performed By: #### 2 91353 ####[place] [address],[place] [address] DRUG SCREEN URINE MEDICon AMPHETAMINES Negative Normal [facility] Comment on above: Performed By: #### 2 03753 ####[facility],[address] [facility] [address] B-DIAZEPINES Negative Normal [facility] Comment on above: Performed By: #### 2 46967 ####[facility],[address] [facility] [address] BARBITURATES Negative Normal [facility] Comment on above: Performed By: #### 2 54940 ####[facility],[address] [place] [address],[facility] [address] COCAINE Negative [facility] Comment on above: Performed By: #### 2 07173 ####[facility],[address] [place] [address] DRUG SCREEN URINE MEDIC Normal [facility] Comment on above: Result Comment: DRUG SCREEN - URINE Performed By: #### 2 69760 ####[facility],[address] [facility] [address] METHADONE Negative [facility] Comment on above: Performed By: #### 2 99283 ####[facility],[address] [facility] [address] OPIATES Negative [facility] Comment on above: Performed By: #### 2 91955 ####[facility],[address] [place] [address] PCP Negative [facility] Comment on above: Performed By: #### 2 62576 ####[facility],[address] [place] [address] TCA Negative [facility] Comment on above: Performed By: #### 2 11066 ####[facility],[address] [facility] [address] THC Negative Normal [facility] Comment on above: Result Comment: CHARLEY ENTS RECEIVING PROTON PUMP INHIBITORS MAY DEMONSTRATE FALSE POSITIVETHC/CANNABINOID RESULTS. AN ALTERNATIVE CONFIRMATORY METHOD SHOULD BE CONSIDEREDTO VERIFY POSITIVE RESULTS. Performed By: #### 2 66579 ####[facility],[address] [place] [address] HGB A1Con 11-09-2017 Hemoglobin A1c/Hemoglobin.total mass fraction (Bld) 12.0 % High 4.4 - 6.4 [facility] Comment on above: Result Comment: {HB] {A1] Performed By: #### 2 73879 ####[facility],[address] [place], [place] [address] HISTORY AND PHYSICALon 11-09 HISTORY AND PHYSICAL [facility] HISTORY & PHYSICAL NAME ACCOUNT SEX AGE ADMIT DISCHARGE PT MED. RECORD# NUMBER DATE DATE TYPE ANEESH [id number] M 57 11/09/17 3 KIMBERLY [id number] ROOM: ER DATE OF : 64 DICTATING PHYSICIAN: Kye Brock The patient is seen in the emergency department at [facility] on November 09 and is transferred to [facility]. CHIEF COMPLAINT: Intoxication. HISTORY OF PRESENT ILLNESS: The patient is a 57-year-old male who states that he has been having emotional issues at home. His son approximately 1 year ago, and someone had sent him a picture on his phone of his son. The patient began drinking rather heavily. The patient presents with an alcohol level of 212 mg/dL. As he is intoxicated, we cannot call Crisis Center. He is being sent to [facility] for further treatment and alcohol withdrawal protocol. It is also noted that his glucose is 600. He is a known diabetic, but he is not acidotic. PAST MEDICAL HISTORY: Includes diabetes mellitus, alcohol use/abuse. MEDICATIONS: Medications at home: None. FAMILY HISTORY: Unknown. SOCIAL HISTORY: The patient is currently not working. REVIEW OF SYSTEMS: Very difficult to obtain from the patient and in accurate due to the intoxication. PHYSICAL EXAMINATION GENERAL APPEARANCE: Reveals that he is lying in bed 1 primarily sleeping, but does fairly readily awaken. He can speak without difficulty. He does not have slurred speech. I questioned him specifically about tremors and withdrawal symptoms, and he responds positively to this when he quits usage VITAL SIGNS: The patient's temperature is 97.7, pulse 66, respirations 20, blood pressure 164/98. HEENT: Head is unremarkable. NECK: Unremarkable. Page 1 of 3 KIMBERLY MELENDREZ History & Physical LUNGS: The patient's lungs have clear breath sounds bilaterally. HEART: Regular rate and rhythm. ABDOMEN: Soft and nontender. EXTREMITIES: Free of edema. NEUROLOGIC: He has no evidence of withdraw at this point in time nor should he with the current level. IMPRESSION/PLAN: Mr. Melendrez is not safe to stay at this hospital on account of not having a proper withdraw policy. I will transfer to [facility] to my service where we may apply the [facility] Withdrawal Assessment protocol and properly detoxify him. Once he is no longer under the influence, Crisis will be asked to see him at that time. It would not be inappropriate to call them in with his present state. Dictated By: Kye Brock MD 11/09/17 16:19 JOB #: [id number] Transcribed By: jessica 11/09/17 16:51 Electronically signed by: Al Brock M.D. 11/09/17 20:19 Update to H&P: [ ] No changes: I have examined the patient and reviewed the H&P and there are no changes. [ ] As previously dictated with the following changes: PHYSICIAN SIGNATURE: __ TIME: DATE: Page 2 of 3 KIMBERLY MELENDREZ History & Physical Normal [facility] KETONE, BLOOD, QUALon 2017 KETONES Negative Normal ORIN - NEGATIVE [facility] Comment on above: Result Comment: SPEC IMEN SERUM Performed By: #### 2 36748 ####[facility],[address] [place] [address] LACTATEon 11-09-2017 Lactate molar conc 14.5 mg/dL Normal 4.5 - 18.0 [facility] Comment on above: Performed By: #### 2 33903 ####[facility],[address] [place] [address] Lactate molar conc 18.5 mg/dL High 4.5 - 18.0 [facility] Comment on above: Performed By: #### 2 17339 ####[facility],[address] [place] [address] TROPONINon 11-09-2017 Troponin I.cardiac mass conc 0.01 ng/mL Normal 0.00 - 0.05 [facility] Comment on above: Result Comment: Elev ated troponin (above the 99th percentile) usually indicates myocardialischemia. Results must be interpreted within the clinical setting.1.Non-ischemic pathology can also cause elevated troponin levels (e.g., acute pulmonary embolism, myocarditis, pericarditis, heart failure, intracranial injury, rhabdomyolisis, sepsis, shock and renal insufficiency).2.Approximately 1% of healthy adults have elevated troponin levels.3.Analytical false positive results rarely occur(due to multiple interferences such as heterophile antibodies). Performed By: #### 2 29268 ####[place] [address] Troponin I.cardiac mass conc 0.01 ng/mL Normal 0.00 - 0.05 [facility] Comment on above: Result Comment: Elev ated troponin (above the 99th percentile) usually indicates myocardialischemia. Results must be interpreted within the clinical setting.1.Non-ischemic pathology can also cause elevated troponin levels (e.g., acute pulmonary embolism, myocarditis, pericarditis, heart failure, intracranial injury, rhabdomyolisis, sepsis, shock and renal insufficiency).2.Approximately 1% of healthy adults have elevated troponin levels.3.Analytical false positive results rarely occur(due to multiple interferences such as heterophile antibodies). Performed By: #### [id number] ####[facility],[address] [place] [address] URINALYSISon 11-09-2017 Bilirubin Negative Normal NORMAL: NEGATIVE [facility] Comment on above: Performed By: #### [id number] ####[place] [address] Blood Negative Normal NORMAL: NEGATIVE [facility] Comment on above: Performed By: #### [id number] ####[facility],[address] [place] [address] Clarity clear Normal NORMAL: CLEAR [facility] Comment on above: Performed By: #### [id number] ####[facility],[address] [place] [address] Color p.yel Normal NORMAL: YELLOW [facility] Comment on above: Performed By: #### 2 [id number] ####[place] [address] Glucose 1000 Abnormal NORMAL: NORMAL [facility] Comment on above: Performed By: #### [id number] ####[facility],[address] [place] [address] Ketone Negative Normal NORMAL: NEGATIVE [facility] Comment on above: Performed By: #### 2 [id number] ####[place] [address] Leukocytes Negative Normal NORMAL: NEGATIVE [facility] Comment on above: Performed By: #### 2 [id number] ####[facility],[address] [place] [id number] Microscopic NOT INDICATED Normal [facility] Comment on above: Performed By: #### [id number] ####[facility],[address] [place] [id number] Nitrite Negative Normal NORMAL: NEGATIVE [facility] Comment on above: Performed By: #### 2 [id number] ####[facility],[address] [place] [address] ph 6 Normal NORMAL: 5.0-8.0 [facility] Comment on above: Performed By: #### [id number] ####[facility],[address] [place] [id number] Protein mass conc Negative Normal NORMAL: NEGATIVE [facility] Comment on above: Performed By: #### 2 [id number] ####[facility],[address] [place], [place] [id number] [place] 1.010 Normal NORMAL: 1.010-1.030 [facility] Comment on above: Performed By: #### 2 [id number] ####[facility],[address] [place] [id number] Specimen type UNSPECIFIED Normal [facility] Comment on above: Performed By: #### 2 [id number] ####[facility],[address] [place] [address] Urobilinog NORM Normal NORMAL: NORMAL [facility] Comment on above: Performed By: #### 2 [id number] ####[facility],[address] [place] [address] Vital Signs Date Time Vital Sign Value Performing Clinician Facility 08-03-2024 08:48-0400 Heart rate 86 /min No Primary Care Physician [facility] 08-03-2024 08:46-0400 Body temperature 97.7 [degF] No Primary Care Physician [facility] 08-03-2024 08:46-0400 Diastolic blood pressure 98 mm[Hg] No Primary Care Physician [facility] 08-03-2024 08:46-0400 Respiratory rate 16 /min No Primary Care Physician [facility] 08-03-2024 08:46-0400 SaO2% (BldA) [Mass fraction] 97 % No Primary Care Physician [facility] 08-03-2024 08:46-0400 Systolic blood pressure 127 mm[Hg] No Primary Care Physician [facility] 08-03-2024 05:38-0400 Body mass index (BMI) [Ratio] 20.6 kg/m2 No Primary Care Physician [facility] 08-03-2024 05:38-0400 Body weight 67 kg No Primary Care Physician [facility] 08-02-2024 11:29-0400 Body height 180.34 cm No Primary Care Physician [facility] 08-01-2024 21:00-0400 Body temperature 97.9 [degF] No Primary Care Physician [facility] 08-01-2024 21:00-0400 Diastolic blood pressure 76 mm[Hg] No Primary Care Physician [facility] 08-01-2024 21:00-0400 Heart rate 102 /min No Primary Care Physician [facility] 08-01-2024 21:00-0400 Respiratory rate 18 /min No Primary Care Physician [facility] 08-01-2024 21:00-0400 SaO2% (BldA) [Mass fraction] 99 % No Primary Care Physician [facility] 08-01-2024 21:00-0400 Systolic blood pressure 109 mm[Hg] No Primary Care Physician [facility] 08-01-2024 20:30-0400 Inhaled oxygen flow rate 2 L/min No Primary Care Physician [facility] 08-01-2024 19:38-0400 Body mass index (BMI) [Ratio] 21.7 kg/m2 No Primary Care Physician [facility] 08-01-2024 19:38-0400 Body weight 70.7 kg No Primary Care Physician [facility] 08-01-2024 12:33-0400 Body height 180.34 cm No Primary Care Physician [facility] 07-14-2024 09:45-0400 Heart rate 79 /min No Primary Care Physician [facility] 07-14-2024 07:55-0400 Body temperature 98.7 [degF] No Primary Care Physician [facility] 07-14-2024 07:55-0400 Diastolic blood pressure 84 mm[Hg] No Primary Care Physician [facility] 07-14-2024 07:55-0400 Respiratory rate 16 /min No Primary Care Physician [facility] 07-14-2024 07:55-0400 SaO2% (BldA) [Mass fraction] 95 % No Primary Care Physician [facility] 07-14-2024 07:55-0400 Systolic blood pressure 122 mm[Hg] No Primary Care Physician [facility] 07-14-2024 03:30-0400 Body mass index (BMI) [Ratio] 20.1 kg/m2 No Primary Care Physician [facility] 07-14-2024 03:30-0400 Body weight 65.6 kg No Primary Care Physician [facility] 07-12-2024 14:49-0400 Body height 180.34 cm No Primary Care Physician [facility] 07-11-2024 15:00-0400 Diastolic blood pressure 98 mm[Hg] No Primary Care Physician [facility] 07-11-2024 15:00-0400 Heart rate 80 /min No Primary Care Physician [facility] 07-11-2024 15:00-0400 Respiratory rate 18 /min No Primary Care Physician [facility] 07-11-2024 15:00-0400 SaO2% (BldA) [Mass fraction] 98 % No Primary Care Physician [facility] 07-11-2024 15:00-0400 Systolic blood pressure 148 mm[Hg] No Primary Care Physician [facility] 07-11-2024 13:51-0400 Body temperature 98.6 [degF] No Primary Care Physician [facility] 07-11-2024 11:28-0400 Body height 180.34 cm No Primary Care Physician [facility] 07-11-2024 11:28-0400 Body mass index (BMI) [Ratio] 20.2 kg/m2 No Primary Care Physician [facility] 07-11-2024 11:28-0400 Body weight 65.81 kg No Primary Care Physician [facility] 07-06-2024 11:41-0400 Body temperature 97.6 [degF] No Primary Care Physician [facility] 07-06-2024 11:41-0400 Diastolic blood pressure 81 mm[Hg] No Primary Care Physician [facility] 07-06-2024 11:41-0400 Heart rate 60 /min No Primary Care Physician [facility] 07-06-2024 11:41-0400 Respiratory rate 16 /min No Primary Care Physician [facility] 07-06-2024 11:41-0400 SaO2% (BldA) [Mass fraction] 93 % No Primary Care Physician [facility] 07-06-2024 11:41-0400 Systolic blood pressure 142 mm[Hg] No Primary Care Physician [facility] 07-06-2024 04:52-0400 Body mass index (BMI) [Ratio] 20.4 kg/m2 No Primary Care Physician [facility] 07-06-2024 04:52-0400 Body weight 66.4 kg No Primary Care Physician [facility] 07-04-2024 14:00-0400 Inhaled oxygen flow rate 2 L/min No Primary Care Physician [facility] 07-04-2024 11:32-0400 Body height 180.34 cm No Primary Care Physician [facility] 06-28-2024 14:10-0400 Body temperature 98 [degF] No Primary Care Physician [facility] 06-28-2024 14:10-0400 Diastolic blood pressure 75 mm[Hg] No Primary Care Physician [facility] 06-28-2024 14:10-0400 Heart rate 82 /min No Primary Care Physician [facility] 06-28-2024 14:10-0400 Respiratory rate 18 /min No Primary Care Physician [facility] 06-28-2024 14:10-0400 SaO2% (BldA) [Mass fraction] 97 % No Primary Care Physician [facility] 06-28-2024 14:10-0400 Systolic blood pressure 102 mm[Hg] No Primary Care Physician [facility] 06-28-2024 11:20-0400 Body height 180.34 cm No Primary Care Physician [facility] 06-28-2024 11:20-0400 Body weight 74.9 kg No Primary Care Physician [facility] 06-28-2024 09:00-0400 Inhaled oxygen flow rate 2 L/min No Primary Care Physician [facility] 06-28-2024 03:35-0400 Body mass index (BMI) [Ratio] 23.1 kg/m2 No Primary Care Physician [facility] 06-25-2024 22:00-0400 Diastolic blood pressure 86 mm[Hg] No Primary Care Physician [facility] 06-25-2024 22:00-0400 Heart rate 118 /min No Primary Care Physician [facility] 06-25-2024 22:00-0400 Respiratory rate 20 /min No Primary Care Physician [facility] 06-25-2024 22:00-0400 SaO2% (BldA) [Mass fraction] 94 % No Primary Care Physician [facility] 06-25-2024 22:00-0400 Systolic blood pressure 138 mm[Hg] No Primary Care Physician [facility] 06-25-2024 21:38-0400 Body temperature 98.5 [degF] No Primary Care Physician [facility] 06-25-2024 16:17-0400 Body height 180.34 cm No Primary Care Physician [facility] 06-25-2024 16:17-0400 Body mass index (BMI) [Ratio] 26.6 kg/m2 No Primary Care Physician [facility] 06-25-2024 16:17-0400 Body weight 86.5 kg No Primary Care Physician [facility] 04-12-2024 09:41-0500 Diastolic blood pressure 110 mm[Hg] Vandana Edwards Work Phone: [facility] 04-12-2024 09:41-0500 Systolic blood pressure 172 mm[Hg] Vandana Edwards Work Phone: [facility] 04-12-2024 09:14-0500 Body mass index (BMI) [Ratio] 20.08 kg/m2 Vandana Edwards Work Phone: [facility] 04-12-2024 09:14-0500 Body temperature 97.11 [degF] Vandana Edwards Work Phone: [facility] 04-12-2024 09:14-0500 Body weight 65.32 kg Vandana Edwards Work Phone: [facility] 04-12-2024 09:14-0500 Heart rate 60 /min Vandana Edwards Work Phone: [facility] 04-12-2024 09:14-0500 SaO2% (BldA) [Mass fraction] 98 % Vandana Edwards Work Phone: [facility] 04-05-2024 13:20-0500 Diastolic blood pressure 75 mm[Hg] Phoebe Vazquez MD Work Phone: [facility] 04-05-2024 13:20-0500 Heart rate 65 /min Phoebe Vazquez MD Work Phone: [facility] 04-05-2024 13:20-0500 Respiratory rate 16 /min Phoebe Vazquez MD Work Phone: [facility] 04-05-2024 13:20-0500 SaO2% (BldA) [Mass fraction] 97 % Phoebe Vazquez MD Work Phone: [facility] 04-05-2024 13:20-0500 Systolic blood pressure 118 mm[Hg] Phoebe Vazquez MD Work Phone: [facility] 04-05-2024 13:00-0500 Body temperature 97 [degF] Phoebe Vazquez MD Work Phone: [facility] 04-05-2024 11:43-0500 Body height 180.3 cm Phoebe Vazquez MD Work Phone: [facility] 04-05-2024 11:43-0500 Body mass index (BMI) [Ratio] 20.22 kg/m2 Phoebe Vazquez MD Work Phone: [facility] 04-05-2024 11:43-0500 Body weight 65.77 kg Phoebe Vazquez MD Work Phone: [facility] 12-27-2023 14:12-0500 Body height 180.3 cm Marianna Wagner APRN.CNP Work Phone: [facility] 12-27-2023 14:12-0500 Body mass index (BMI) [Ratio] 18.97 kg/m2 Marianna Queden VEHICLE DISMANTLER.[employer] D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 Work Phone: [facility] 12-27-2023 14:12-0500 Body temperature 97.81 [degF] Marianna Queden VEHICLE DISMANTLER.[employer] D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 Work Phone: [facility] 12-27-2023 14:12-0500 Body weight 61.69 kg Marianna Queden VEHICLE DISMANTLER.[employer] D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 Work Phone: [facility] 12-27-2023 14:12-0500 Diastolic blood pressure 70 mm[Hg] Marianna Queden VEHICLE DISMANTLER.[employer] D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 Work Phone: [facility] 12-27-2023 14:12-0500 Heart rate 75 /min Marianna Queden VEHICLE DISMANTLER.[employer] D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 Work Phone: [facility] 12-27-2023 14:12-0500 Respiratory rate 16 /min Marianna Queden VEHICLE DISMANTLER.[employer] D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 Work Phone: [facility] 12-27-2023 14:12-0500 SaO2% (BldA) [Mass fraction] 100 % Marianna Queden VEHICLE DISMANTLER.[employer] D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 Work Phone: [facility] 12-27-2023 14:12-0500 Systolic blood pressure 126 mm[Hg] Marianna Queden VEHICLE DISMANTLER.[employer] D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 Work Phone: [facility] 12-24-2023 10:38-0500 Body height 180.3 cm Susana Hritz VEHICLE DISMANTLER.[employer] D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 Work Phone: [facility] 12-24-2023 10:38-0500 Body mass index (BMI) [Ratio] 18.97 kg/m2 Susana Hritz VEHICLE DISMANTLER.[employer] D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 Work Phone: [facility] 12-24-2023 10:38-0500 Body weight 61.69 kg Susana Hritz VEHICLE DISMANTLER.[employer] D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 Work Phone: [facility] 12-24-2023 10:38-0500 Diastolic blood pressure 84 mm[Hg] Susana Hritz VEHICLE DISMANTLER.[employer] D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 Work Phone: [facility] 12-24-2023 10:38-0500 Heart rate 70 /min Susana Marlowitz VEHICLE DISMANTLER.[employer] D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 Work Phone: [facility] 12-24-2023 10:38-0500 Systolic blood pressure 132 mm[Hg] Susana Marlowitz VEHICLE DISMANTLER.[employer] D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 Work Phone: [facility] 11-15-2023 10:50-0400 Body height 177.8 cm Vandanaru Edwards Work Phone: [facility] 11-15-2023 10:50-0400 Body mass index (BMI) [Ratio] 18.94 kg/m2 Vandanaariel Edwards Work Phone: [facility] 11-15-2023 10:50-0400 Body temperature 97.7 [degF] Vandanaru Edwards Work Phone: [facility] 11-15-2023 10:50-0400 Body weight 59.88 kg Vandanaru Edwards Work Phone: [facility] 11-15-2023 10:50-0400 Diastolic blood pressure 105 mm[Hg] Vandana Edwards Work Phone: [facility] 11-15-2023 10:50-0400 Heart rate 106 /min Vandanaru Edwards Work Phone: [facility] 11-15-2023 10:50-0400 SaO2% (BldA) [Mass fraction] 98 % Vandanaru Edwards Work Phone: [facility] 11-15-2023 10:50-0400 Systolic blood pressure 141 mm[Hg] Vandana Jerry Work Phone: [facility] 10-30-2023 17:46-0400 Blood Pressure Location ANN-MARIE DILLON DO [facility] 10-30-2023 17:46-0400 Blood Pressure Method ANN-MARIE DILLON DO [facility] 10-30-2023 17:46-0400 Diastolic Blood Pressure Non-Invasive 94 mm[Hg] ANN-MARIE DILLON DO [facility] 10-30-2023 17:46-0400 Heart rate 64 /min ANN-MARIE DILLON DO [facility] 10-30-2023 17:46-0400 Reason For Taking VItal Signs ANN-MARIE DILLON DO [facility] 10-30-2023 17:46-0400 Respiratory rate 18 /min ANN-MARIE DILLON DO [facility] 10-30-2023 17:46-0400 Systolic Blood Pressure Non-Invasive 167 mm[Hg] ANN-MARIE DILLON DO [facility] 10-30-2023 17:24-0400 Blood Pressure Location ANN-MARIE DILLON DO [facility] 10-30-2023 17:24-0400 Blood Pressure Method ANN-MARIE DILLON DO [facility] 10-30-2023 17:24-0400 Diastolic Blood Pressure Non-Invasive 100 mm[Hg] ANN-MARIE DILLON DO [facility] 10-30-2023 17:24-0400 Heart rate 85 /min ANN-MARIE DILLON DO [facility] 10-30-2023 17:24-0400 Reason For Taking VItal Signs ANN-MARIE DILLON DO [facility] 10-30-2023 17:24-0400 Respiratory rate 14 /min ANN-MARIE DILLON DO [facility] 10-30-2023 17:24-0400 Systolic Blood Pressure Non-Invasive 200 mm[Hg] ANN-MARIE DILLON DO [facility] 10-30-2023 15:15-0400 Blood Pressure Location ANN-MARIE DILLON DO [facility] 10-30-2023 15:15-0400 Blood Pressure Method ANN-MARIE DILLON DO [facility] 10-30-2023 15:15-0400 Body temperature 98.24 [degF] ANN-MARIE DILLON DO [facility] 10-30-2023 15:15-0400 Body weight 63.6 kg ANN-MARIE DILLON DO [facility] 10-30-2023 15:15-0400 Diastolic Blood Pressure Non-Invasive 92 mm[Hg] ANN-MARIE DILLON DO [facility] 10-30-2023 15:15-0400 Heart rate 73 /min ANN-MARIE DILLON DO [facility] 10-30-2023 15:15-0400 Respiratory rate 14 /min ANN-MARIE DILLON DO [facility] 10-30-2023 15:15-0400 Systolic Blood Pressure Non-Invasive 156 mm[Hg] ANN-MARIE DILLON DO [facility] 10-14-2023 11:05-0400 Body height 180.3 cm Marianna Ruizden VEHICLE DISMANTLER.[employer] D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 Work Phone: [facility] 10-14-2023 11:05-0400 Body mass index (BMI) [Ratio] 18.83 kg/m2 Marianna Queden VEHICLE DISMANTLER.[employer] D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 Work Phone: [facility] 10-14-2023 11:05-0400 Body temperature 97.59 [degF] Marianna Jasonden VEHICLE DISMANTLER.[employer] D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 Work Phone: [facility] 10-14-2023 11:05-0400 Body weight 61.24 kg Marianna Queden VEHICLE DISMANTLER.[employer] D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 Work Phone: [facility] 10-14-2023 11:05-0400 Diastolic blood pressure 70 mm[Hg] Marianna Queden VEHICLE DISMANTLER.[employer] D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 Work Phone: [facility] 10-14-2023 11:05-0400 Heart rate 60 /min Marianna Queden VEHICLE DISMANTLER.[employer] D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 Work Phone: [facility] 10-14-2023 11:05-0400 Respiratory rate 18 /min Marianna Queden VEHICLE DISMANTLER.[employer] D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 Work Phone: [facility] 10-14-2023 11:05-0400 SaO2% (BldA) [Mass fraction] 100 % Marianna Queden VEHICLE DISMANTLER.[employer] D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 Work Phone: [facility] 10-14-2023 11:05-0400 Systolic blood pressure 122 mm[Hg] Marianna Queden VEHICLE DISMANTLER.[facility] Work Phone: [facility] 08-09-2023 13:11-0400 Body height 180.3 cm Marianna Queden VEHICLE DISMANTLER.SPL[employer] D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 Work Phone: [facility] 08-09-2023 13:11-0400 Body mass index (BMI) [Ratio] 19.39 kg/m2 Marianna Queden VEHICLE DISMANTLER.[employer] D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 Work Phone: [facility] 08-09-2023 13:11-0400 Body temperature 99 [degF] Marianna Queden VEHICLE DISMANTLER.SPL[employer]K D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 Work Phone: [facility] 08-09-2023 13:11-0400 Body weight 63.05 kg Marianna Queden VEHICLE DISMANTLER.SPL[employer]K D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 Work Phone: [facility] 08-09-2023 13:11-0400 Diastolic blood pressure 76 mm[Hg] Marianna Queden VEHICLE DISMANTLER.[employer] D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 Work Phone: [facility] 08-09-2023 13:11-0400 Heart rate 98 /min Marianna Queden VEHICLE DISMANTLER.[employer] D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 Work Phone: [facility] 08-09-2023 13:11-0400 SaO2% (BldA) [Mass fraction] 99 % Marianna Wagner VEHICLE DISMANTLER.[employer] D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 Work Phone: [facility] 08-09-2023 13:11-0400 Systolic blood pressure 122 mm[Hg] Marianna Wagner VEHICLE DISMANTLER.[employer] D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 Work Phone: [facility] 05-20-2023 13:15-0400 Body temperature 97.7 [degF] VEHICLE MODIFICATION TECHNICIAN-C Andreas Pathak VEHICLE MODIFICATION TECHNICIAN Work Phone: [facility] 05-20-2023 13:15-0400 Diastolic blood pressure 73 mm[Hg] VEHICLE MODIFICATION TECHNICIAN-C Andreas Pathak VEHICLE MODIFICATION TECHNICIAN Work Phone: [facility] 05-20-2023 13:15-0400 Heart rate 74 /min VEHICLE MODIFICATION TECHNICIAN-C Andreas Pathak VEHICLE MODIFICATION TECHNICIAN Work Phone: [facility] 05-20-2023 13:15-0400 Respiratory rate 16 /min VEHICLE MODIFICATION TECHNICIAN-C Andreas Pathak VEHICLE MODIFICATION TECHNICIAN Work Phone: [facility] 05-20-2023 13:15-0400 SaO2% (BldA) [Mass fraction] 96 % VEHICLE MODIFICATION TECHNICIAN-C Andreas Pathak VEHICLE MODIFICATION TECHNICIAN Work Phone: [facility] 05-20-2023 13:15-0400 Systolic blood pressure 107 mm[Hg] VEHICLE MODIFICATION TECHNICIAN-C Andreas Pathak VEHICLE MODIFICATION TECHNICIAN Work Phone: [facility] 05-20-2023 06:00-0400 Body mass index (BMI) [Ratio] 25.8 kg/m2 VEHICLE MODIFICATION TECHNICIAN-C Andreas Pathak VEHICLE MODIFICATION TECHNICIAN Work Phone: [facility] 05-20-2023 06:00-0400 Body weight 84.1 kg VEHICLE MODIFICATION TECHNICIAN-C Andreas Pathak VEHICLE MODIFICATION TECHNICIAN Work Phone: [facility] 05-18-2023 11:01-0400 Body height 180.34 cm VEHICLE MODIFICATION TECHNICIAN-C Andreas Pathak VEHICLE MODIFICATION TECHNICIAN Work Phone: [facility] 05-18-2023 07:20-0400 Inhaled oxygen flow rate 2 L/min VEHICLE MODIFICATION TECHNICIAN-C Andreas Pathka VEHICLE MODIFICATION TECHNICIAN Work Phone: [facility] 05-15-2023 11:10-0400 Inhaled oxygen concentration 25 % VEHICLE MODIFICATION TECHNICIAN-C Andreas Luxpkins VEHICLE MODIFICATION TECHNICIAN Work Phone: [facility] 05-09-2023 21:45-0400 Diastolic blood pressure 66 mm[Hg] VEHICLE MODIFICATION TECHNICIAN-C Andreas Pathak VEHICLE MODIFICATION TECHNICIAN Work Phone: [facility] 05-09-2023 21:45-0400 Heart rate 116 /min VEHICLE MODIFICATION TECHNICIAN-C Andreas Pathak VEHICLE MODIFICATION TECHNICIAN Work Phone: [facility] 05-09-2023 21:45-0400 Respiratory rate 20 /min VEHICLE MODIFICATION TECHNICIAN-C Andreas Pathak VEHICLE MODIFICATION TECHNICIAN Work Phone: [facility] 05-09-2023 21:45-0400 SaO2% (BldA) [Mass fraction] 94 % VEHICLE MODIFICATION TECHNICIAN-C Andreas Pathak VEHICLE MODIFICATION TECHNICIAN Work Phone: [facility] 05-09-2023 21:45-0400 Systolic blood pressure 84 mm[Hg] VEHICLE MODIFICATION TECHNICIAN-C Andreas Pathak VEHICLE MODIFICATION TECHNICIAN Work Phone: [facility] 05-09-2023 21:44-0400 Body temperature 97.7 [degF] VEHICLE MODIFICATION TECHNICIAN-C Andreas Zo VEHICLE MODIFICATION TECHNICIAN Work Phone: [facility] 05-09-2023 21:44-0400 Inhaled oxygen flow rate 2 L/min VEHICLE MODIFICATION TECHNICIAN-C Andreas Pathak VEHICLE MODIFICATION TECHNICIAN Work Phone: [facility] 05-09-2023 13:31-0400 Body height 180.34 cm VEHICLE MODIFICATION TECHNICIAN-C Andreas Pathak VEHICLE MODIFICATION TECHNICIAN Work Phone: [facility] 05-09-2023 13:31-0400 Body mass index (BMI) [Ratio] 23.8 kg/m2 VEHICLE MODIFICATION TECHNICIAN-C Andreas Pathak VEHICLE MODIFICATION TECHNICIAN Work Phone: [facility] 05-09-2023 13:31-0400 Body weight 77.4 kg VEHICLE MODIFICATION TECHNICIAN-C Andreas Pathak VEHICLE MODIFICATION TECHNICIAN Work Phone: [facility] 04-27-2023 08:51-0400 Body temperature 98.8 [degF] VEHICLE MODIFICATION TECHNICIAN-C Andreas Pathak VEHICLE MODIFICATION TECHNICIAN Work Phone: [facility] 04-27-2023 08:51-0400 Diastolic blood pressure 78 mm[Hg] VEHICLE MODIFICATION TECHNICIAN-C Andreas Pathak VEHICLE MODIFICATION TECHNICIAN Work Phone: [facility] 04-27-2023 08:51-0400 Heart rate 98 /min VEHICLE MODIFICATION TECHNICIAN-C Andreas Pathak VEHICLE MODIFICATION TECHNICIAN Work Phone: [facility] 04-27-2023 08:51-0400 Respiratory rate 16 /min VEHICLE MODIFICATION TECHNICIAN-C Andreas Pathak VEHICLE MODIFICATION TECHNICIAN Work Phone: [facility] 04-27-2023 08:51-0400 SaO2% (BldA) [Mass fraction] 95 % VEHICLE MODIFICATION TECHNICIAN-C Andreas Pathak VEHICLE MODIFICATION TECHNICIAN Work Phone: [facility] 04-27-2023 08:51-0400 Systolic blood pressure 110 mm[Hg] VEHICLE MODIFICATION TECHNICIAN-C Andreas Pathak VEHICLE MODIFICATION TECHNICIAN Work Phone: [facility] 04-26-2023 14:44-0400 Body height 180.01 cm VEHICLE MODIFICATION TECHNICIAN-C Andreas Pathak VEHICLE MODIFICATION TECHNICIAN Work Phone: [facility] 04-26-2023 14:44-0400 Body weight 63.9 kg VEHICLE MODIFICATION TECHNICIAN-C Andreas Pathak VEHICLE MODIFICATION TECHNICIAN Work Phone: [facility] 04-22-2023 22:00-0400 Inhaled oxygen flow rate 2 L/min VEHICLE MODIFICATION TECHNICIAN-C Andreas Pathak VEHICLE MODIFICATION TECHNICIAN Work Phone: [facility] 04-20-2023 17:00-0400 Body mass index (BMI) [Ratio] 19.7 kg/m2 VEHICLE MODIFICATION TECHNICIAN-C Andreas Pathak VEHICLE MODIFICATION TECHNICIAN Work Phone: [facility] 04-20-2023 16:05-0400 Body temperature 98.2 [degF] VEHICLE MODIFICATION TECHNICIAN-C Andreas Pathak VEHICLE MODIFICATION TECHNICIAN Work Phone: [facility] 04-20-2023 16:05-0400 Diastolic blood pressure 80 mm[Hg] VEHICLE MODIFICATION TECHNICIAN-C Andreas Pathak VEHICLE MODIFICATION TECHNICIAN Work Phone: [facility] 04-20-2023 16:05-0400 Heart rate 117 /min VEHICLE MODIFICATION TECHNICIAN-C Andreas Pathak VEHICLE MODIFICATION TECHNICIAN Work Phone: [facility] 04-20-2023 16:05-0400 Respiratory rate 16 /min VEHICLE MODIFICATION TECHNICIAN-C Andreas Pathak VEHICLE MODIFICATION TECHNICIAN Work Phone: [facility] 04-20-2023 16:05-0400 SaO2% (BldA) [Mass fraction] 100 % VEHICLE MODIFICATION TECHNICIAN-C Andreas Pathak VEHICLE MODIFICATION TECHNICIAN Work Phone: [facility] 04-20-2023 16:05-0400 Systolic blood pressure 143 mm[Hg] VEHICLE MODIFICATION TECHNICIAN-C Andreas Pathak VEHICLE MODIFICATION TECHNICIAN Work Phone: [facility] 04-20-2023 11:29-0400 Body height 180.34 cm VEHICLE MODIFICATION TECHNICIAN-C Andreas Pathak VEHICLE MODIFICATION TECHNICIAN Work Phone: [facility] 04-20-2023 11:29-0400 Body mass index (BMI) [Ratio] 19.6 kg/m2 VEHICLE MODIFICATION TECHNICIAN-C Andreas Pathak VEHICLE MODIFICATION TECHNICIAN Work Phone: [facility] 04-20-2023 11:29-0400 Body weight 63.9 kg VEHICLE MODIFICATION TECHNICIAN-C Andreas Pathak VEHICLE MODIFICATION TECHNICIAN Work Phone: [facility] 03-19-2023 10:48-[address] Cuff Size DR MARIELY WAGNER MD [facility] 03-19-2023 10:48-[address] MARIELY WAGNER MD [facility] 03-19-2023 10:48-[address] MARIELY WAGNER MD [facility] 03-19-2023 10:48-0500 Body temperature 97.34 [degF] DR MARIELY WAGNER MD [address] [place] [address] 03-19-2023 10:48-0500 Diastolic Blood Pressure Non-Invasive 94 mm[Hg] DR MARIELY WAGNER MD [address] [place] [address] 03-19-2023 10:48-0500 Heart rate 90 /min DR MARIELY WAGNER MD [address] [place] [address] 03-19-2023 10:48-0500 Reason For Taking VItal Signs DR MARIELY WAGNER MD [address] [place] [address] 03-19-2023 10:48-0500 Respiratory rate 18 /min DR MARIELY WAGNER MD [address] [place] [address] 03-19-2023 10:48-0500 Systolic Blood Pressure Non-Invasive 143 mm[Hg] DR MARIELY WAGNER MD [address] [place] [address] 03-19-2023 08:11-0500 Heart rate 86 /min DR MARIELY WAGNER MD [address] [place] [address] 03-19-2023 06:58-0500 Blood Pressure Cuff Size DR MARIELY WAGNER MD [address] [place] [address] 03-19-2023 06:58-[address] MARIELY WAGNER MD [address] [place] [address] 03-19-2023 06:58-[address] MARIELY WAGNER MD [address] [place] [address] 03-19-2023 06:58-0500 Body temperature 97.7 [degF] DR MARIELY WAGNER MD [address] [place] [address] 03-19-2023 06:58-0500 Diastolic Blood Pressure Non-Invasive 91 mm[Hg] DR MARIELY WAGNER MD [address] [place] [address] 03-19-2023 06:58-0500 Heart rate 61 /min DR MARIELY WAGNER MD [address] [place] [address] 03-19-2023 06:58-0500 Reason For Taking VItal Signs DR MARIELY WAGNER MD [facility] 03-19-2023 06:58-0500 Respiratory rate 18 /min DR MARIELY WAGNER MD [address] [place] [address] 03-19-2023 06:58-0500 Systolic Blood Pressure Non-Invasive 146 mm[Hg] DR MARIELY WAGNER MD [address] [place] [address] 03-19-2023 04:49-0500 Blood Pressure Cuff Size DR MARIELY WAGNER MD [address] [place] [address] 03-19-2023 04:49-[address] MARIELY WAGNER MD [address] [place] [address] 03-19-2023 04:49-[address] MARIELY WAGNER MD [address] [place] [address] 03-19-2023 04:49-0500 Body temperature 97.7 [degF] DR MARIELY WAGNER MD [address] [place] [address] 03-19-2023 04:49-0500 Diastolic Blood Pressure Non-Invasive 88 mm[Hg] DR MARIELY WAGNER MD [address] [place] [address] 03-19-2023 04:49-0500 Heart rate 65 /min DR MARIELY WAGNER MD [address] [place] [address] 03-19-2023 04:49-0500 Reason For Taking VItal Signs DR MARIELY WAGNER MD [address] [place] [address] 03-19-2023 04:49-0500 Respiratory rate 18 /min DR MARIELY WAGNER MD [facility] 03-19-2023 04:49-0500 Systolic Blood Pressure Non-Invasive 120 mm[Hg] DR MARIELY WAGNER MD [address] [place] [address] 03-18-2023 23:28-0500 Heart rate 69 /min DR MARIELY WAGNER MD [address] [place] [address] 03-18-2023 18:42-0500 Heart rate 57 /min DR MARIELY WAGNER MD [address] [place] [address] 03-18-2023 16:45-0500 Heart rate 84 /min DR MARIELY WAGNER MD [address] 03-18-2023 10:40-0500 Heart rate 80 /min DR MARIELY WAGNER MD [address] 03-18-2023 04:01-0500 Mean blood pressure 105 mm[Hg] DR MARIELY WAGNER MD [address] 03-17-2023 11:11-0500 Heart rate 74 /min DR MARIELY WAGNER MD [address] [place] [address] 03-16-2023 11:15-0500 Mean blood pressure 99 mm[Hg] DR MARIELY WAGNER MD [address] [place] [address] 03-16-2023 10:51-0500 Mean blood pressure 111 mm[Hg] DR MARIELY WAGNER MD [address] [place] [address] 03-15-2023 23:39-0500 Body height 180.[address] MARIELY WAGNER MD [address] [place] [address] 03-15-2023 23:39-0500 Body weight 68.[address] MARIELY WAGNER MD [address] [place] [address] 03-15-2023 23:39-0500 Body weight 21.13 kg/m2 DR MARIELY WAGNER MD [address] [place] [address] 03-15-2023 10:50-0500 Body weight 68.[address] MARIELY WAGNER MD [address] [place] [address] 09-24-2023 23:04-0400 Diastolic blood pressure 78 mm[Hg] [facility] 11-01-2022 23:04-0400 Heart rate 78 /min [facility] 11-01-2022 23:04-0400 Respiratory rate 18 /min [facility] 11-01-2022 23:04-0400 SaO2% (BldA) [Mass fraction] 95 % [facility] 11-01-2022 23:04-0400 Systolic blood pressure 123 mm[Hg] [facility] 11-01-2022 20:01-0400 Body height 177.8 cm [facility] 11-01-2022 20:01-0400 Body mass index (BMI) [Ratio] 20.3 kg/m2 [facility] 11-01-2022 20:01-0400 Body temperature 98.2 [degF] [facility] 11-01-2022 20:01-0400 Body weight 64.27 kg [facility] 10-15-2022 11:32-0400 Body height 180 cm ANDREAS LUXPKINS [employer] [facility] 10-15-2022 11:32-0400 Body weight 20.62 kg/m2 ANDREAS 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 [facility] Comment on above: Result Comment: 160# about 2-3 months ag o pt reports d/t diarrhea and GI problems (pt currently figuring this out with PCP and getting tests ran) 10-05-2022 16:00-0400 Diastolic Blood Pressure Non-Invasive 103 1 MAGDALENA EDOUARDSANDRA RILEY [facility] 10-05-2022 16:00-0400 Heart rate 69 /min MAGDALENA EDOUARDSANDRA RILEY [facility] 10-05-2022 16:00-0400 Systolic Blood Pressure Non-Invasive 134 1 MAGDALENA GODDARDT DO [facility] 10-05-2022 15:30-0400 Diastolic Blood Pressure Non-Invasive 93 1 MAGDALENA GODDARDT DO [facility] 10-05-2022 15:30-0400 Heart rate 72 /min MAGDALENA GODDARDT [employer] [facility] 10-05-2022 15:30-0400 Respiratory rate 16 /min MAGDALENA NICKERSON [employer] [facility] 10-05-2022 15:30-0400 Systolic Blood Pressure Non-Invasive 149 1 MAGDALENA GODDARDT [employer] [facility] 10-05-2022 15:00-0400 Diastolic Blood Pressure Non-Invasive 118 1 MAGDALENA NICKERSON [employer] [facility] 10-05-2022 15:00-0400 Systolic Blood Pressure Non-Invasive 145 1 MAGDALENA NICKERSON [employer] [facility] 10-05-2022 14:12-0400 Blood Pressure Location MAGDALENA GODDARDT [facility] 10-05-2022 14:12-0400 Blood Pressure Method MAGDALENA NICKERSON DO [facility] 10-05-2022 13:41-0400 Body temperature 97.88 [degF] MAGDALENA NICKERSON [employer] [facility] 10-05-2022 13:41-0400 Heart rate 99 /min MAGDALENA GODDARDModelinia [facility] 07-21-2022 00:00-0400 Diastolic blood pressure 94 mm[Hg] [facility] 07-21-2022 00:00-0400 Heart rate 79 /min [facility] 07-21-2022 00:00-0400 Respiratory rate 18 /min [facility] 07-21-2022 00:00-0400 SaO2% (BldA) [Mass fraction] 94 % [facility] 07-21-2022 00:00-0400 Systolic blood pressure 144 mm[Hg] [facility] 07-20-2022 19:10-0400 Body mass index (BMI) [Ratio] 21.5 kg/m2 [facility] 07-20-2022 19:10-0400 Body temperature 96.7 [degF] [facility] 07-20-2022 19:10-0400 Body weight 69.9 kg [facility] 05-13-2022 20:38-0400 Body temperature 98.24 [degF] DR MERRICK SINGH DO [facility] 05-13-2022 20:38-0400 Diastolic Blood Pressure Non-Invasive [address] MERRICK SINGH DO [facility] 05-13-2022 20:38-0400 Heart rate 106 /min DR MERRICK SINGH DO [facility] 05-13-2022 20:38-0400 Respiratory rate 18 /min DR MERRICK SINGH DO [facility] 05-13-2022 20:38-0400 Systolic Blood Pressure Non-Invasive [address] MERRICK SINGH DO [facility] 05-13-2022 19:30-0400 Diastolic Blood Pressure Non-Invasive [address] MERRICK SINGH DO [facility] 05-13-2022 19:30-0400 Heart rate 75 /min DR MERRICK SINGH DO [facility] 05-13-2022 19:30-0400 Respiratory rate 18 /min DR MERRICK SINGH DO [facility] 05-13-2022 19:30-0400 Systolic Blood Pressure Non-Invasive [address] MERRICK SINGH DO [facility] 05-13-2022 17:35-[address] MERRICK SINGH DO [facility] 05-13-2022 17:35-[address] MERRICK SINGH DO [facility] 05-13-2022 17:35-0400 Body temperature 98.42 [degF] DR MERRICK SINGH DO [facility] 05-13-2022 17:35-0400 Diastolic Blood Pressure Non-Invasive [address] MERRICK SINGH DO [facility] 05-13-2022 17:35-0400 Heart rate 89 /min DR MERRICK SINGH DO [facility] 05-13-2022 17:35-0400 Respiratory rate 18 /min DR MERRICK SINGH DO [facility] 05-13-2022 17:35-0400 Systolic Blood Pressure Non-Invasive [address] MERRICK SINGH DO [facility] 05-13-2022 17:33-0400 Body temperature 98.42 [degF] DR MERRICK SINGH DO [facility] 03-24-2022 08:25-0500 Body temperature 97.5 [degF] VEHICLE MODIFICATION TECHNICIAN-Stephen Pathak VEHICLE MODIFICATION TECHNICIAN Work Phone: [facility] 03-24-2022 08:25-0500 Diastolic blood pressure 76 mm[Hg] VEHICLE MODIFICATION TECHNICIANAstrid Pathak VEHICLE MODIFICATION TECHNICIAN Work Phone: [facility] 03-24-2022 08:25-0500 Heart rate 66 /min VEHICLE MODIFICATION TECHNICIANAstrid Pathak VEHICLE MODIFICATION TECHNICIAN Work Phone: [facility] 03-24-2022 08:25-0500 Respiratory rate 16 /min VEHICLE MODIFICATION TECHNICIAN-C Andreas Luxpkins VEHICLE MODIFICATION TECHNICIAN Work Phone: [facility] 03-24-2022 08:25-0500 SaO2% (BldA) [Mass fraction] 95 % VEHICLE MODIFICATION TECHNICIAN-C Andreas Luxpkins VEHICLE MODIFICATION TECHNICIAN Work Phone: [facility] 03-24-2022 08:25-0500 Systolic blood pressure 127 mm[Hg] VEHICLE MODIFICATION TECHNICIAN-C Andreas Greenup VEHICLE MODIFICATION TECHNICIAN Work Phone: [facility] 03-22-2022 10:11-0500 Body height 180.34 cm VEHICLE MODIFICATION TECHNICIAN-C Andreas Luxpkins VEHICLE MODIFICATION TECHNICIAN Work Phone: [facility] 03-22-2022 10:11-0500 Body weight 62.3 kg VEHICLE MODIFICATION TECHNICIAN-C Andreas Greenup VEHICLE MODIFICATION TECHNICIAN Work Phone: [facility] 03-21-2022 19:44-0500 Body mass index (BMI) [Ratio] 19.1 kg/m2 VEHICLE MODIFICATION TECHNICIAN-C Andreas Greenup VEHICLE MODIFICATION TECHNICIAN Work Phone: [facility] 03-21-2022 18:15-0500 Body temperature 98.5 [degF] VEHICLE MODIFICATION TECHNICIAN-C Andreas Luxpkins VEHICLE MODIFICATION TECHNICIAN Work Phone: [facility] 03-21-2022 18:15-0500 Diastolic blood pressure 99 mm[Hg] VEHICLE MODIFICATION TECHNICIAN-C Andreas Greenup VEHICLE MODIFICATION TECHNICIAN Work Phone: [facility] 03-21-2022 18:15-0500 Heart rate 86 /min VEHICLE MODIFICATION TECHNICIAN-C Andreas Pathak VEHICLE MODIFICATION TECHNICIAN Work Phone: [facility] 03-21-2022 18:15-0500 Respiratory rate 18 /min VEHICLE MODIFICATION TECHNICIAN-C Andreas Greenup VEHICLE MODIFICATION TECHNICIAN Work Phone: [facility] 03-21-2022 18:15-0500 SaO2% (BldA) [Mass fraction] 100 % VEHICLE MODIFICATION TECHNICIAN-C Andreas Pathak VEHICLE MODIFICATION TECHNICIAN Work Phone: [facility] 03-21-2022 18:15-0500 Systolic blood pressure 159 mm[Hg] VEHICLE MODIFICATION TECHNICIAN-C Andreas Luxpkins VEHICLE MODIFICATION TECHNICIAN Work Phone: [facility] 03-21-2022 17:43-0500 Body height 180.34 cm VEHICLE MODIFICATION TECHNICIAN-C Andreas Luxpkins VEHICLE MODIFICATION TECHNICIAN Work Phone: [facility] 03-21-2022 17:43-0500 Body mass index (BMI) [Ratio] 20.9 kg/m2 VEHICLE MODIFICATION TECHNICIAN-C Andreas Zo VEHICLE MODIFICATION TECHNICIAN Work Phone: [facility] 03-21-2022 17:43-0500 Body weight 68.03 kg VEHICLE MODIFICATION TECHNICIAN-C Andreas Pathak VEHICLE MODIFICATION TECHNICIAN Work Phone: [facility] 02-04-2022 13:17-0500 Body temperature 98.3 [degF] VEHICLE MODIFICATION TECHNICIAN-C Andreas Pathak VEHICLE MODIFICATION TECHNICIAN Work Phone: [facility] 02-04-2022 13:17-0500 Diastolic blood pressure 92 mm[Hg] VEHICLE MODIFICATION TECHNICIAN-C Andreas Greenup VEHICLE MODIFICATION TECHNICIAN Work Phone: [facility] 02-04-2022 13:17-0500 Heart rate 102 /min VEHICLE MODIFICATION TECHNICIAN-C Andreas Zo VEHICLE MODIFICATION TECHNICIAN Work Phone: [facility] 02-04-2022 13:17-0500 Respiratory rate 18 /min VEHICLE MODIFICATION TECHNICIAN-C Andreas Pathak VEHICLE MODIFICATION TECHNICIAN Work Phone: [facility] 02-04-2022 13:17-0500 SaO2% (BldA) [Mass fraction] 100 % VEHICLE MODIFICATION TECHNICIAN-C Andreas Zo VEHICLE MODIFICATION TECHNICIAN Work Phone: [facility] 02-04-2022 13:17-0500 Systolic blood pressure 121 mm[Hg] VEHICLE MODIFICATION TECHNICIAN-C Andreas Greenup VEHICLE MODIFICATION TECHNICIAN Work Phone: [facility] 02-04-2022 03:34-0500 Body weight 70 kg VEHICLE MODIFICATION TECHNICIAN-C Andreas Pathak VEHICLE MODIFICATION TECHNICIAN Work Phone: [facility] 02-02-2022 11:36-0500 Body height 180.34 cm VEHICLE MODIFICATION TECHNICIAN-C Andreas Luxpkins VEHICLE MODIFICATION TECHNICIAN Work Phone: [facility] Work Phone: 02-01-2022 21:44-0500 Body mass index (BMI) [Ratio] 20.2 kg/m2 VEHICLE MODIFICATION TECHNICIAN-C Andreas Luxpkins VEHICLE MODIFICATION TECHNICIAN Work Phone: [facility] 02-01-2022 21:00-0500 Body temperature 96.2 [degF] VEHICLE MODIFICATION TECHNICIAN-C Andreas Luxpkins VEHICLE MODIFICATION TECHNICIAN Work Phone: [facility] Work Phone: 02-01-2022 21:00-0500 Diastolic blood pressure 82 mm[Hg] VEHICLE MODIFICATION TECHNICIAN-C Andreas Lxupkins VEHICLE MODIFICATION TECHNICIAN Work Phone: [facility] Work Phone: 02-01-2022 21:00-0500 Heart rate 128 /min VEHICLE MODIFICATION TECHNICIAN-C Andreas Luxpkins VEHICLE MODIFICATION TECHNICIAN Work Phone: [facility] Work Phone: 02-01-2022 21:00-0500 Respiratory rate 13 /min VEHICLE MODIFICATION TECHNICIAN-C Andreas Luxpkins VEHICLE MODIFICATION TECHNICIAN Work Phone: [facility] Work Phone: 02-01-2022 21:00-0500 SaO2% (BldA) [Mass fraction] 100 % VEHICLE MODIFICATION TECHNICIAN-C Andreas Luxpkins VEHICLE MODIFICATION TECHNICIAN Work Phone: [facility] Work Phone: 02-01-2022 21:00-0500 Systolic blood pressure 117 mm[Hg] VEHICLE MODIFICATION TECHNICIAN-C Andreas Luxpkins VEHICLE MODIFICATION TECHNICIAN Work Phone: [facility] Work Phone: 02-01-2022 19:02-0500 Body height 180.34 cm VEHICLE MODIFICATION TECHNICIAN-C Andreas Luxpkins VEHICLE MODIFICATION TECHNICIAN Work Phone: [facility] Work Phone: 02-01-2022 19:02-0500 Body mass index (BMI) [Ratio] 21.5 kg/m2 VEHICLE MODIFICATION TECHNICIAN-C Andreas Pathak VEHICLE MODIFICATION TECHNICIAN Work Phone: [facility] Work Phone: 02-01-2022 19:02-0500 Body weight 70.1 kg VEHICLE MODIFICATION TECHNICIAN-C Andreas Pathak VEHICLE MODIFICATION TECHNICIAN Work Phone: [facility] Work Phone: 11-14-2021 09:51-0400 Heart rate 89 /min VEHICLE MODIFICATION TECHNICIAN-C Andreas Pathak VEHICLE MODIFICATION TECHNICIAN Work Phone: [facility] Work Phone: 11-14-2021 08:30-0400 Body temperature 98.5 [degF] VEHICLE MODIFICATION TECHNICIAN-C Andreas Pathak VEHICLE MODIFICATION TECHNICIAN Work Phone: [facility] Work Phone: 11-14-2021 08:30-0400 Diastolic blood pressure 72 mm[Hg] VEHICLE MODIFICATION TECHNICIAN-C Andreas Pathak VEHICLE MODIFICATION TECHNICIAN Work Phone: [facility] Work Phone: 11-14-2021 08:30-0400 Respiratory rate 16 /min VEHICLE MODIFICATION TECHNICIAN-C Andreas Pathak VEHICLE MODIFICATION TECHNICIAN Work Phone: [facility] Work Phone: 11-14-2021 08:30-0400 SaO2% (BldA) [Mass fraction] 100 % VEHICLE MODIFICATION TECHNICIAN-C Andreas Pathak VEHICLE MODIFICATION TECHNICIAN Work Phone: [facility] Work Phone: 11-14-2021 08:30-0400 Systolic blood pressure 121 mm[Hg] VEHICLE MODIFICATION TECHNICIAN-C Andreas Pathak VEHICLE MODIFICATION TECHNICIAN Work Phone: [facility] Work Phone: 11-12-2021 10:35-0400 Body weight 68.8 kg VEHICLE MODIFICATION TECHNICIAN-C Andreas Pathak VEHICLE MODIFICATION TECHNICIAN Work Phone: [facility] Work Phone: 11-11-2021 17:38-0400 Body mass index (BMI) [Ratio] 21.1 kg/m2 VEHICLE MODIFICATION TECHNICIAN-C Andreas Pathak VEHICLE MODIFICATION TECHNICIAN Work Phone: [facility] Work Phone: 11-08-2021 10:47-0400 Body temperature 98.6 [degF] VEHICLE MODIFICATION TECHNICIAN-C Andreas Pathak VEHICLE MODIFICATION TECHNICIAN Work Phone: [facility] Work Phone: 11-08-2021 10:47-0400 Diastolic blood pressure 95 mm[Hg] VEHICLE MODIFICATION TECHNICIAN-C Andreas Pathak VEHICLE MODIFICATION TECHNICIAN Work Phone: [facility] Work Phone: 11-08-2021 10:47-0400 Heart rate 82 /min VEHICLE MODIFICATION TECHNICIAN-C Andreas Pathak VEHICLE MODIFICATION TECHNICIAN Work Phone: [facility] Work Phone: 11-08-2021 10:47-0400 Respiratory rate 16 /min VEHICLE MODIFICATION TECHNICIAN-C nAdreas Pathak VEHICLE MODIFICATION TECHNICIAN Work Phone: [facility] Work Phone: 11-08-2021 10:47-0400 SaO2% (BldA) [Mass fraction] 98 % VEHICLE MODIFICATION TECHNICIAN-C Andreas Pathak VEHICLE MODIFICATION TECHNICIAN Work Phone: [facility] Work Phone: 11-08-2021 10:47-0400 Systolic blood pressure 114 mm[Hg] VEHICLE MODIFICATION TECHNICIAN-C Andreas Pathak VEHICLE MODIFICATION TECHNICIAN Work Phone: [facility] Work Phone: 11-06-2021 10:33-0400 Body weight 69.4 kg VEHICLE MODIFICATION TECHNICIAN-C Andreas Pathak VEHICLE MODIFICATION TECHNICIAN Work Phone: [facility] Work Phone: 11-05-2021 20:28-0400 Body temperature 98 [degF] VEHICLE MODIFICATION TECHNICIAN-C Andreas Pathak VEHICLE MODIFICATION TECHNICIAN Work Phone: [facility] Work Phone: 11-05-2021 20:28-0400 Diastolic blood pressure 67 mm[Hg] VEHICLE MODIFICATION TECHNICIAN-C Andreas Pathak VEHICLE MODIFICATION TECHNICIAN Work Phone: [facility] Work Phone: 11-05-2021 20:28-0400 Heart rate 107 /min VEHICLE MODIFICATION TECHNICIAN-C Andreas Pathak VEHICLE MODIFICATION TECHNICIAN Work Phone: [facility] Work Phone: 11-05-2021 20:28-0400 Respiratory rate 18 /min VEHICLE MODIFICATION TECHNICIAN-C Andreas Luxpkins VEHICLE MODIFICATION TECHNICIAN Work Phone: [facility] Work Phone: 11-05-2021 20:28-0400 SaO2% (BldA) [Mass fraction] 97 % VEHICLE MODIFICATION TECHNICIAN-C Andreas Pathak VEHICLE MODIFICATION TECHNICIAN Work Phone: [facility] Work Phone: 11-05-2021 20:28-0400 Systolic blood pressure 116 mm[Hg] VEHICLE MODIFICATION TECHNICIAN-C Andreas Luxpkins VEHICLE MODIFICATION TECHNICIAN Work Phone: [facility] Work Phone: 11-05-2021 18:03-0400 Body mass index (BMI) [Ratio] 21.3 kg/m2 VEHICLE MODIFICATION TECHNICIAN-C Andreas Pathak VEHICLE MODIFICATION TECHNICIAN Work Phone: [facility] Work Phone: 11-05-2021 16:18-0400 Body height 180.34 cm VEHICLE MODIFICATION TECHNICIAN-C Andreas Luxpkins VEHICLE MODIFICATION TECHNICIAN Work Phone: [facility] Work Phone: 11-05-2021 16:18-0400 Body mass index (BMI) [Ratio] 24.4 kg/m2 VEHICLE MODIFICATION TECHNICIAN-C Andreas Luxpkins VEHICLE MODIFICATION TECHNICIAN Work Phone: [facility] Work Phone: 11-05-2021 16:18-0400 Body weight 79.37 kg VEHICLE MODIFICATION TECHNICIAN-C Andreas Greenup VEHICLE MODIFICATION TECHNICIAN Work Phone: [facility] Work Phone: 10-06-2021 23:34-0400 Diastolic blood pressure 76 mm[Hg] VEHICLE MODIFICATION TECHNICIAN-C Andreas Pathak VEHICLE MODIFICATION TECHNICIAN Work Phone: [facility] Work Phone: 10-06-2021 23:34-0400 Heart rate 100 /min VEHICLE MODIFICATION TECHNICIAN-C Andreas Pathak VEHICLE MODIFICATION TECHNICIAN Work Phone: [facility] Work Phone: 10-06-2021 23:34-0400 Respiratory rate 18 /min VEHICLE MODIFICATION TECHNICIAN-C Andreas Luxpkins VEHICLE MODIFICATION TECHNICIAN Work Phone: [facility] Work Phone: 10-06-2021 23:34-0400 SaO2% (BldA) [Mass fraction] 95 % VEHICLE MODIFICATION TECHNICIAN-C Andreas Luxpkins VEHICLE MODIFICATION TECHNICIAN Work Phone: [facility] Work Phone: 10-06-2021 23:34-0400 Systolic blood pressure 114 mm[Hg] VEHICLE MODIFICATION TECHNICIAN-C Andreas Luxpkins VEHICLE MODIFICATION TECHNICIAN Work Phone: [facility] Work Phone: 10-06-2021 18:43-0400 Body temperature 98 [degF] VEHICLE MODIFICATION TECHNICIAN-C Andreas Luxpkins VEHICLE MODIFICATION TECHNICIAN Work Phone: [facility] Work Phone: 10-06-2021 12:22-0400 Body height 180.34 cm VEHICLE MODIFICATION TECHNICIAN-C Andreas Luxpkins VEHICLE MODIFICATION TECHNICIAN Work Phone: [facility] Work Phone: 10-06-2021 12:22-0400 Body mass index (BMI) [Ratio] 20.1 kg/m2 VEHICLE MODIFICATION TECHNICIAN-C Andreas Luxpkins VEHICLE MODIFICATION TECHNICIAN Work Phone: [facility] Work Phone: 10-06-2021 12:22-0400 Body weight 65.6 kg VEHICLE MODIFICATION TECHNICIAN-C Andreas Luxpkins VEHICLE MODIFICATION TECHNICIAN Work Phone: [facility] Work Phone: 09-30-2021 14:53-0400 Diastolic blood pressure 81 mm[Hg] VEHICLE MODIFICATION TECHNICIAN-C Andreas Pathak VEHICLE MODIFICATION TECHNICIAN Work Phone: [facility] Work Phone: 09-30-2021 14:53-0400 Heart rate 100 /min VEHICLE MODIFICATION TECHNICIAN-C Andreas Pathak VEHICLE MODIFICATION TECHNICIAN Work Phone: [facility] Work Phone: 09-30-2021 14:53-0400 Respiratory rate 18 /min VEHICLE MODIFICATION TECHNICIAN-C Andreas Luxpkins VEHICLE MODIFICATION TECHNICIAN Work Phone: [facility] Work Phone: 09-30-2021 14:53-0400 SaO2% (BldA) [Mass fraction] 97 % VEHICLE MODIFICATION TECHNICIAN-C Andreas Luxpkins VEHICLE MODIFICATION TECHNICIAN Work Phone: [facility] Work Phone: 09-30-2021 14:53-0400 Systolic blood pressure 112 mm[Hg] VEHICLE MODIFICATION TECHNICIAN-C Andreas Luxpkins VEHICLE MODIFICATION TECHNICIAN Work Phone: [facility] Work Phone: 09-30-2021 13:34-0400 Body height 180.34 cm VEHICLE MODIFICATION TECHNICIAN-C Andreas Luxpkins VEHICLE MODIFICATION TECHNICIAN Work Phone: [facility] Work Phone: 09-30-2021 13:34-0400 Body mass index (BMI) [Ratio] 21 kg/m2 VEHICLE MODIFICATION TECHNICIAN-C Andreas Luxpkins VEHICLE MODIFICATION TECHNICIAN Work Phone: [facility] Work Phone: 09-30-2021 13:34-0400 Body temperature 97.1 [degF] VEHICLE MODIFICATION TECHNICIAN-C Andreas Luxpkins VEHICLE MODIFICATION TECHNICIAN Work Phone: [facility] Work Phone: 09-30-2021 13:34-0400 Body weight 68.49 kg VEHICLE MODIFICATION TECHNICIAN-C Andreas Luxpkins VEHICLE MODIFICATION TECHNICIAN Work Phone: [facility] Work Phone: 06-01-2021 09:42-0400 Diastolic blood pressure 86 mm[Hg] VEHICLE MODIFICATION TECHNICIAN-C Andreas Pathak VEHICLE MODIFICATION TECHNICIAN Work Phone: [facility] Work Phone: 06-01-2021 09:42-0400 Heart rate 67 /min VEHICLE MODIFICATION TECHNICIAN-C Andreas Zo VEHICLE MODIFICATION TECHNICIAN Work Phone: [facility] Work Phone: 06-01-2021 09:42-0400 Systolic blood pressure 142 mm[Hg] VEHICLE MODIFICATION TECHNICIAN-C Andreas Pathak VEHICLE MODIFICATION TECHNICIAN Work Phone: [facility] Work Phone: 06-01-2021 09:40-0400 Body temperature 98.4 [degF] VEHICLE MODIFICATION TECHNICIAN-C Andreas Pathak VEHICLE MODIFICATION TECHNICIAN Work Phone: [facility] Work Phone: 06-01-2021 09:40-0400 Respiratory rate 18 /min VEHICLE MODIFICATION TECHNICIAN-C Andreas Pathak VEHICLE MODIFICATION TECHNICIAN Work Phone: [facility] Work Phone: 06-01-2021 09:40-0400 SaO2% (BldA) [Mass fraction] 99 % VEHICLE MODIFICATION TECHNICIAN-C Andreas Pathak VEHICLE MODIFICATION TECHNICIAN Work Phone: [facility] Work Phone: 05-30-2021 11:48-0400 Body height 165.1 cm VEHICLE MODIFICATION TECHNICIAN-C Andreas Greenup VEHICLE MODIFICATION TECHNICIAN Work Phone: [facility] Work Phone: 05-30-2021 11:48-0400 Body weight 74.84 kg VEHICLE MODIFICATION TECHNICIAN-C Andreas Greenup VEHICLE MODIFICATION TECHNICIAN Work Phone: [facility] Work Phone: 05-29-2021 22:10-0400 Body mass index (BMI) [Ratio] 27.4 kg/m2 VEHICLE MODIFICATION TECHNICIAN-C Andreas Pathak VEHICLE MODIFICATION TECHNICIAN Work Phone: [facility] Work Phone: 05-29-2021 20:49-0400 Body temperature 98.3 [degF] VEHICLE MODIFICATION TECHNICIAN-C Andreas Pathak VEHICLE MODIFICATION TECHNICIAN Work Phone: [facility] Work Phone: 05-29-2021 20:49-0400 Diastolic blood pressure 79 mm[Hg] VEHICLE MODIFICATION TECHNICIAN-C Andreas Zo VEHICLE MODIFICATION TECHNICIAN Work Phone: [facility] Work Phone: 05-29-2021 20:49-0400 Heart rate 115 /min VEHICLE MODIFICATION TECHNICIAN-C Andreas Pathak VEHICLE MODIFICATION TECHNICIAN Work Phone: [facility] Work Phone: 05-29-2021 20:49-0400 Respiratory rate 18 /min VEHICLE MODIFICATION TECHNICIAN-C Andreas Pathak VEHICLE MODIFICATION TECHNICIAN Work Phone: [facility] Work Phone: 05-29-2021 20:49-0400 SaO2% (BldA) [Mass fraction] 95 % VEHICLE MODIFICATION TECHNICIAN-C Andreas Greenup VEHICLE MODIFICATION TECHNICIAN Work Phone: [facility] Work Phone: 05-29-2021 20:49-0400 Systolic blood pressure 127 mm[Hg] VEHICLE MODIFICATION TECHNICIAN-C Andreas Greenup VEHICLE MODIFICATION TECHNICIAN Work Phone: [facility] Work Phone: 05-29-2021 19:09-0400 Body height 180.34 cm VEHICLE MODIFICATION TECHNICIAN-C Andreas Greenup VEHICLE MODIFICATION TECHNICIAN Work Phone: [facility] Work Phone: 05-29-2021 19:09-0400 Body mass index (BMI) [Ratio] 23 kg/m2 VEHICLE MODIFICATION TECHNICIAN-C Andreas Greenup VEHICLE MODIFICATION TECHNICIAN Work Phone: [facility] Work Phone: 05-29-2021 19:09-0400 Body weight 74.84 kg VEHICLE MODIFICATION TECHNICIAN-C Andreas Greenup VEHICLE MODIFICATION TECHNICIAN Work Phone: [facility] Work Phone: 05-22-2021 07:51-0400 Respiratory rate 16 /min VEHICLE MODIFICATION TECHNICIAN-C Andreas Pathak VEHICLE MODIFICATION TECHNICIAN Work Phone: [facility] Work Phone: 05-22-2021 06:30-0400 Body temperature 97.9 [degF] VEHICLE MODIFICATION TECHNICIAN-C Andreas Pathak VEHICLE MODIFICATION TECHNICIAN Work Phone: [facility] Work Phone: 05-22-2021 06:30-0400 Diastolic blood pressure 83 mm[Hg] VEHICLE MODIFICATION TECHNICIAN-C Andreas Pathak VEHICLE MODIFICATION TECHNICIAN Work Phone: [facility] Work Phone: 05-22-2021 06:30-0400 Heart rate 100 /min VEHICLE MODIFICATION TECHNICIAN-C Andreas Pathak VEHICLE MODIFICATION TECHNICIAN Work Phone: [facility] Work Phone: 05-22-2021 06:30-0400 SaO2% (BldA) [Mass fraction] 95 % VEHICLE MODIFICATION TECHNICIAN-C Andreas Pathak VEHICLE MODIFICATION TECHNICIAN Work Phone: [facility] Work Phone: 05-22-2021 06:30-0400 Systolic blood pressure 147 mm[Hg] VEHICLE MODIFICATION TECHNICIAN-C Andreas Zo VEHICLE MODIFICATION TECHNICIAN Work Phone: [facility] Work Phone: 05-21-2021 18:28-0400 Body mass index (BMI) [Ratio] 24 kg/m2 VEHICLE MODIFICATION TECHNICIAN-C Andreas Greenup VEHICLE MODIFICATION TECHNICIAN Work Phone: [facility] Work Phone: 05-21-2021 18:28-0400 Body weight 74 kg VEHICLE MODIFICATION TECHNICIAN-C Andreas Greenup VEHICLE MODIFICATION TECHNICIAN Work Phone: [facility] Work Phone: 05-05-2021 14:31-0400 Diastolic blood pressure 96 mm[Hg] VEHICLE MODIFICATION TECHNICIAN-C Andreas Patahk VEHICLE MODIFICATION TECHNICIAN Work Phone: [facility] Work Phone: 05-05-2021 14:31-0400 Heart rate 87 /min VEHICLE MODIFICATION TECHNICIAN-C Andreas Pathak VEHICLE MODIFICATION TECHNICIAN Work Phone: [facility] Work Phone: 05-05-2021 14:31-0400 Respiratory rate 16 /min VEHICLE MODIFICATION TECHNICIAN-C Andreas Luxpkins VEHICLE MODIFICATION TECHNICIAN Work Phone: [facility] Work Phone: 05-05-2021 14:31-0400 SaO2% (BldA) [Mass fraction] 100 % VEHICLE MODIFICATION TECHNICIAN-C Andreas Zo VEHICLE MODIFICATION TECHNICIAN Work Phone: [facility] Work Phone: 05-05-2021 14:31-0400 Systolic blood pressure 145 mm[Hg] VEHICLE MODIFICATION TECHNICIAN-C Andreas Pathak VEHICLE MODIFICATION TECHNICIAN Work Phone: [facility] Work Phone: 05-05-2021 13:48-0400 Body temperature 98.4 [degF] VEHICLE MODIFICATION TECHNICIAN-C Andreas Greenup VEHICLE MODIFICATION TECHNICIAN Work Phone: [facility] Work Phone: 05-04-2021 15:40-0400 Body height 180.34 cm VEHICLE MODIFICATION TECHNICIAN-C Andreas Luxpkins VEHICLE MODIFICATION TECHNICIAN Work Phone: [facility] Work Phone: 05-04-2021 15:40-0400 Body mass index (BMI) [Ratio] 22.3 kg/m2 VEHICLE MODIFICATION TECHNICIAN-C Andreas Luxpkins VEHICLE MODIFICATION TECHNICIAN Work Phone: [facility] Work Phone: 05-04-2021 15:40-0400 Body weight 72.5 kg VEHICLE MODIFICATION TECHNICIAN-C Andreas Luxpkins VEHICLE MODIFICATION TECHNICIAN Work Phone: [facility] Work Phone: 05-04-2021 15:36-0400 Body temperature 98 [degF] [facility] Work Phone: 05-04-2021 15:36-0400 Diastolic blood pressure 101 mm[Hg] [facility] Work Phone: 05-04-2021 15:36-0400 Heart rate 97 /min [facility] Work Phone: 05-04-2021 15:36-0400 Respiratory rate 18 /min [facility] Work Phone: 05-04-2021 15:36-0400 SaO2% (BldA) [Mass fraction] 99 % [facility] Work Phone: 05-04-2021 15:36-0400 Systolic blood pressure 157 mm[Hg] [facility] Work Phone: 05-04-2021 13:18-0400 Body height 180.34 cm [facility] Work Phone: 05-04-2021 13:18-0400 Body mass index (BMI) [Ratio] 23 kg/m2 [facility] Work Phone: 05-04-2021 13:18-0400 Body weight 74.84 kg [facility] Work Phone: 05-02-2021 15:49-0400 Diastolic blood pressure 92 mm[Hg] DR SHILPI BURNS MD [facility] 05-02-2021 15:49-0400 Heart rate 84 /min DR SHILPI BURNS MD [facility] 05-02-2021 15:49-0400 Respiratory rate 16 /min DR SHILPI BURNS MD [facility] 05-02-2021 15:49-0400 Systolic blood pressure 143 mm[Hg] DR SHILPI BURNS MD [facility] 05-02-2021 14:22-0400 Diastolic blood pressure 85 mm[Hg] DR SHILPI BURNS MD [facility] 05-02-2021 14:22-0400 Heart rate 87 /min DR SHILPI BURNS MD [facility] 05-02-2021 14:22-0400 Respiratory rate 16 /min DR SHILPI BURNS MD [facility] 05-02-2021 14:22-0400 Systolic blood pressure 152 mm[Hg] DR SHILPI BURNS MD [facility] 05-02-2021 13:50-0400 Diastolic blood pressure 95 mm[Hg] DR SHILPI BURNS MD [facility] 05-02-2021 13:50-0400 Heart rate 88 /min DR SHILPI BURNS MD [facility] 05-02-2021 13:50-0400 Mean blood pressure 112 mm[Hg] DR SHILPI BURNS MD [facility] 05-02-2021 13:50-0400 Respiratory rate 16 /min DR SHILPI BURNS MD [facility] 05-02-2021 13:50-0400 Systolic blood pressure 145 mm[Hg] DR SHILPI BURNS MD [facility] 05-02-2021 13:04-0400 Body temperature 98.6 [degF] DR SHILPI BURNS MD [facility] 05-02-2021 13:04-0400 Body weight 73.[address] SHILPI BURNS MD [facility] 05-02-2021 13:04-0400 Heart rate 120 /min DR SHIPLI BURNS MD [facility] Encounters Encounter Date Encounter Type Care Provider Facility Start: 09-04-2024 ambulatory Sigrid Call [facility] Faci lity:[facility] Start: 08-13-2024 End: 08-14-2024 Refill Marianna A Queden VEHICLE DISMANTLER.SPLUNK D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 Work Phone: [facility] Comment on above: Refill Request Start: 08-03-2024 End: 08-04-2024 Refill Marianna A Queden VEHICLE DISMANTLER.SPLUNK D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 Work Phone: [facility] Comment on above: Refill Request Start: 08-03-2024 Dr. Iman palmer MD -[facility] Work Phone: Start: 08-02-2024 Suyapa BALDERAS [facility] Start: 08-02-2024 Dr. Valeriy rivers DO -[facility] Work Phone: Start: 08-01-2024 ambulatory Sigrid Jakub [facility] Faci lity:[facility] Start: 08-01-2024 End: 08-03-2024 Evaluation and management of inpatient No Primary Care Physician [facility] Work Phone: Start: 08-01-2024 End: 08-03-2024 Dr. Iman Aguayo MD -Pro[facility] Care Unit Work Phone: Start: 07-20-2024 End: 07-20-2024 ambulatory No Primary Care Physician [facility] Work Phone: Start: 07-20-2024 End: 07-20-2024 Dr. Trung Bob MD -[facility] Work Phone: Start: 07-17-2024 End: 07-17-2024 ambulatory Radha Etienne RN Work Phone: [employer] Start: 07-17-2024 End: 07-17-2024 Home visit Radha Etienne RN Work Phone: [employer] Comment on above: Transition Of Care ( [facility] D/[facility] 07/14/24) Initial phone contact for Transitional Care Management Start: 07-14-2024 Dr. Conrado moura MD -[facility] Work Phone: Start: 07-13-2024 Dr. Conrado moura MD -[facility] Work Phone: Start: 07-13-2024 Dian cabrera PA-C -[facility] Start: 07-12-2024 Dian cabrera PA-C -[facility] Start: 07-12-2024 Dr. Conrado moura MD -[facility] Work Phone: Start: 07-11-2024 End: 07-14-2024 Evaluation and management of inpatient No Primary Care Physician [facility] Work Phone: Start: 07-11-2024 End: 07-14-2024 Dr. Conrado Morel MD -[facility] 3 Work Phone: Start: 07-11-2024 End: 07-11-2024 ambulatory Radha Etienne RN Work Phone: AG Helper/Driver Start: 07-11-2024 End: 07-11-2024 Home visit Radha Etienne RN Work Phone: Helper/Driver Comment on above: Transition Of Care ( TCM f/u/) Weekly phone contact (Recurring) for Transitional Care Management Start: 07-07-2024 End: 07-07-2024 ambulatory Radha Etienne RN Work Phone: [employer] Helper/Driver Start: 07-07-2024 End: 07-07-2024 Home visit Radha Etienne RN Work Phone: Helper/Driver Comment on above: Transition Of Care ( [facility] D/[facility] 07/06/24) Initial phone contact for Transitional Care Management Start: 07-06-2024 Dr. Chris Aragon [facility] Work Phone: Start: 07-05-2024 Dr. Chris Aragon [facility] Work Phone: Start: 07-04-2024 Antonyagata Espitia [facility] Start: 07-04-2024 Dr. Chris Aragon [facility] Work Phone: Start: 07-04-2024 Dr. Yaneli hall MD -[facility] Start: 07-03-2024 ambulatory [facility] Facility[facility] Start: 07-03-2024 Antonyagata Espitia -[facility] Start: 07-02-2024 Dr. Melonie De La Rosa [facility] Work Phone: Start: 07-01-2024 Dr. Melonie De La Rosa [facility] Work Phone: Start: 06-30-2024 End: 07-06-2024 Evaluation and management of inpatient No Primary Care Physician [facility] Work Phone: Start: 06-30-2024 End: 07-06-2024 Dr. Chris Aragon [facility] Work Phone: Start: 06-30-2024 ambulatory Conrado de Evelio Facili ty:[facility] Start: 06-28-2024 Non-patient / Non-visit Dr. Melonie De La Rosa DO [facility] Work Phone: Start: 06-28-2024 Antonyagata Espitia DO -[facility] Start: 06-27-2024 Non-patient / Non-visit Antony Werner nd DO -[facility] Start: 06-27-2024 Antony Friend -[facility] Start: 06-27-2024 Non-patient / Non-visit Dr. Melonie S[facility]chez [facility] Work Phone: Start: 06-27-2024 Dr. Melonie Slater [facility] Work Phone: Start: 06-26-2024 Non-patient / Non-visit Antony Werner tre [facility] Start: 06-26-2024 Antony Espitia [facility] Start: 06-26-2024 End: 06-26-2024 Telephone encounter Marianna A Queden VEHICLE DISMANTLER.SPLUNK D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 Work Phone: [facility] Comment on above: Lab Orders Start: 06-26-2024 Non-patient / Non-visit Dr. Melonie S[facility]chez [facility] Work Phone: Start: 06-26-2024 Dr. Melonie Slater [facility] Work Phone: Start: 06-25-2024 ambulatory Conrado Cole ty:[facility] Start: 06-25-2024 End: 06-28-2024 Evaluation and management of inpatient Dr. Conrado Pro DO [facility] Unit Work Phone: Start: 06-25-2024 End: 06-28-2024 Dr. Melonie Feldman Un it Work Phone: Start: 06-21-2024 End: 06-21-2024 Telephone encounter Marianna A Queden VEHICLE DISMANTLER.SPLUNK D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 Work Phone: [facility] Start: 05-28-2024 End: 05-29-2024 Refill Marianna A Queden VEHICLE DISMANTLER.SPLUNK D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 Work Phone: [facility] Comment on above: Refill Request Start: 05-14-2024 End: 05-15-2024 Refill Marianna A Queden VEHICLE DISMANTLER.SPLUNK D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 Work Phone: [facility] Comment on above: Refill Request Start: 04-13-2024 End: 04-13-2024 ambulatory No Primary Care Physician Facility[place] Start: 04-13-2024 End: 04-13-[address] Trung Bob MD -[facility] Work Phone: Start: 04-13-2024 End: 04-13-2024 Dr. 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) Start: 04-10-2024 End: 06-10-2024 Follow-up encounter Susana Ramirez APRN.SPLUNK D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 Work Phone: [facility] [place] Start: 04-10-2024 End: 04-10-2024 Refill Ramy Delgadillo DO Work Phone: [facility] Comment on above: Refill Request Start: 04-05-2024 ambulatory MARIANNA WAGNER [facility] ty:[facility] Start: 04-05-2024 End: 04-05-2024 Subsequent hospital visit by physician Phoebe Vazquez MD Work Phone: [facility] Endoscopy Comment on above: Anemia, unspecified type [D64.9] Start: 03-31-2024 End: 03-31-2024 Telephone encounter Phoebe Vazquez MD Work Phone: General Surgery Comment on above: Returning Patient's Call Start: 03-29-2024 End: 03-29-2024 Telephone encounter Vandana Edwards Work Phone: Hematology/Oncology Start: 03-27-2024 End: 03-28-2024 Follow-up encounter Marianna A Queden VEHICLE DISMANTLER.SPLUNK D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 Work Phone: [facility] Comment on above: Type 2 diabetes kirk itus with complication, with long-term current use of insulin (HCC) Start: 03-24-2024 End: 03-24-2024 Telephone encounter Brandy Motta PA-C Work Phone: [place] [facility] Comment on above: Patient Question Start: 03-14-2024 End: 03-14-2024 ambulatory RAMY C SHEETS Facility:[facility] Start: 03-13-2024 End: 03-14-2024 Telephone encounter Phoebe Vazquez MD Work Phone: [facility] Comment on above: Patient Question Start: 03-08-2024 End: 03-08-2024 Refill Marianna A Queden VEHICLE DISMANTLER.SPLUNK D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 Work Phone: [facility] Comment on above: Refill Request Start: 02-21-2024 End: 02-21-2024 Refill Marianna A Queden VEHICLE DISMANTLER.SPLUNK D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 Work Phone: [facility] Comment on above: Refill Request Start: 02-21-2024 End: 02-21-2024 Telephone encounter Marianna A Queden VEHICLE DISMANTLER.SPLUNK D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 Work Phone: [facility] Comment on above: Patient Question Start: 02-20-2024 End: 02-21-2024 Refill Marianna A Queden VEHICLE DISMANTLER.SPLUNK D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 Work Phone: [facility] Comment on above: Refill Request Start: 02-16-2024 End: 03-03-2024 Telephone encounter Marianna A Queden VEHICLE DISMANTLER.SPLUNK D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 Work Phone: [facility] Comment on above: Lab Orders Start: 02-08-2024 End: 02-08-2024 Refill Marianna A Queden VEHICLE DISMANTLER.SPLUNK D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 Work Phone: [facility] Comment on above: Refill Request Start: 01-20-2024 End: 01-20-2024 Refill Marianna Wagner VEHICLE DISMANTLERMIKE Work Phone: [facility] Comment on above: Refill Request Start: 01-14-2024 End: 01-29-2024 Telephone encounter Vandana Edwards Work Phone: Hematology/Oncology Comment on above: Appointment Start: 01-13-2024 End: 01-13-2024 ambulatory La Fargelondon Bob Facility:[facility] Start: 12-31-2023 End: 12-31-2023 Telephone encounter Sabra Desouza APRN.CRNA Work Phone: [facility] Comment on above: Anesthesia Consult Start: 12-27-2023 End: 12-27-2023 Patient encounter procedure Marianna Wagner VEHICLE DISMANTLER.STEPHANIE Work Phone: [facility] Comment on above: Primary hypertension (Primary Dx); Type 2 diabetes mellitus with complication, with long-term current use of insulin (HCC); Stage 3 chronic kidney disease, unspecified whether stage 3a or 3b CKD (HCC); Hyperlipidemia, mixed; Gastroesophageal reflux disease, unspecified whether esophagitis present; Chronic pancreatitis, unspecified pancreatitis type (HCC); Anemia, unspecified type Start: 12-27-2023 End: 12-27-2023 ambulatory MARIANNA WAGNER Facility:[facility] Start: 12-24-2023 End: 12-24-2023 ambulatory MARIANNA WAGNER Facility:[facility] Start: 12-24-2023 End: 12-24-2023 Office outpatient new 45 minutes Susana Ramirez VEHICLE DISMANTLER.SPLUNK D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 Work Phone: [facility] [place] Comment on above: Anemia, unspecified type (Primary Dx); Weight loss; Chronic pancreatitis, unspecified pancreatitis type (HCC); Epigastric pain; Right lower quadrant abdominal pain Start: 12-16-2023 End: 12-16-2023 Telephone encounter Marianna Wagner APRN.CNP Work Phone: [facility] Comment on above: Results Start: 12-08-2023 ambulatory MARIANNA WAGNER Facili ty:[facility] Start: 12-08-2023 End: 12-08-2023 Subsequent hospital visit by physician Ct [facility] Radiology Comment on above: Diarrhea, unspecifie d type [R19.7] Start: 12-07-2023 End: 12-07-2023 Telephone encounter Marianna aTyla Queden VEHICLE DISMANTLER.SPLUNK D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 Work Phone: [facility] Start: 12-02-2023 ambulatory MARIANNA A QUEDEN Facili ty:[facility] Start: 12-02-2023 End: 12-02-2023 Subsequent hospital visit by physician [facility] W[facility] (I-Stat) Work Phone: Cat Scan Start: 11-26-2023 End: 11-26-2023 Refill Marianna A Queden VEHICLE DISMANTLER.SPLUNK D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 Work Phone: [facility] Comment on above: Refill Request Start: 11-25-2023 End: 11-29-2023 Telephone encounter Marianna Tayal Queden VEHICLE DISMANTLER.SPLUNK D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 Work Phone: [facility] Comment on above: denial: [id number] JIMÉNEZ FERNANDO W GAYON Start: 11-16-2023 End: 11-16-2023 Telephone encounter Marianna Tayla Queden VEHICLE DISMANTLER.SPLUNK D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 Work Phone: [facility] Comment on above: Patient Update Start: 11-15-2023 End: 11-15-2023 ambulatory Vandana Edwards Work Phone: Hematology/Oncology Comment on above: Anemia, unspecified type (Primary Dx); Diarrhea of presumed infectious origin; 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); Medically complex patient Start: 11-15-2023 End: 11-15-2023 Patient encounter procedure Vandana Edwards Work Phone: Hematology/Oncology Start: 11-07-2023 End: 11-09-2023 Telephone encounter Marianna Tayla Queden VEHICLE DISMANTLER.SPLUNK D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 Work Phone: [facility] Comment on above: Results; Orders Start: 11-06-2023 End: 11-08-2023 Refill Marianna A Queden VEHICLE DISMANTLER.SPLUNK D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 Work Phone: [facility] Comment on above: Refill Request Start: 11-05-2023 End: 11-05-2023 ambulatory Yessica Umana KEITH [facility] Start: 10-30-2023 End: 10-30-2023 Emergency department patient visit ANN-MARIE DILLON DO [facility] Start: 10-21-2023 End: 10-21-2023 ambulatory No Primary Care Physician [facility] Start: 10-21-2023 End: 10-21-2023 ambulatory MARIANNA WAGNER Facility:[facility] Start: 10-21-2023 End: 10-21-2023 Subsequent hospital visit by physician [facility] W[facility] (I-Stat) Work Phone: Cat Scan Comment on above: Generalized abdomina l pain [R10.84] Start: 10-19-2023 End: 10-20-2023 Telephone encounter Trish Silverio DO Work Phone: Hematology/Oncology Comment on above: New Patient Start: 10-17-2023 End: 10-20-2023 Telephone encounter Marianna Wagner APRN.SPLUNK D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 Work Phone: [facility] Comment on above: Results Start: 10-15-2023 End: 10-15-2023 ambulatory MARIANNA WAGNER Facility:[facility] Start: 10-14-2023 End: 10-14-2023 Patient encounter procedure Marianna Wagner VEHICLE DISMANTLER.SPLUNK D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 Work Phone: [facility] Comment on above: Generalized abdomina l pain (Primary Dx); Diarrhea of presumed infectious origin; Weight loss; Stage 3 chronic kidney disease, unspecified whether stage 3a or 3b CKD (HCC); Anemia, unspecified type; Primary hypertension; History of alcohol abuse; Alcohol-induced chronic pancreatitis (HCC); Dysuria; 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); Elevated liver enzymes; Vitamin D deficiency; Cigarette smoker Start: 10-14-2023 End: 10-14-2023 ambulatory MARIANNA A QUEDEN Facility:[facility] Start: 10-07-2023 End: 10-12-2023 Telephone encounter Marianna Ruizden VEHICLE DISMANTLER.SPLUNK D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 Work Phone: [facility] Comment on above: Results; Orders Start: 09-25-2023 End: 09-25-2023 ambulatory MARIANNA RUIZDEN Facility:[facility] Start: 09-24-2023 Telephone encounter Marianna Ruizden VEHICLE DISMANTLER.SPLUNK D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 Work Phone: [facility] Comment on above: Patient Question Start: 09-15-2023 ambulatory Radha Bartholomew lm, RN AG Helper/Driver Start: 09-15-2023 Home visit Radha Bartholomew lm, RN AG Helper/Driver Comment on above: Primary Care Coordin ator Chronic Care (Care Coordination) Start: 09-13-2023 Telephone encounter Marianna Bourne Fátima VEHICLE DISMANTLER.SPLUNK D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 Work Phone: [facility] Comment on above: Patient Update Start: 09-10-2023 ambulatory Radha Bartholomew lm, RN AG Helper/Driver Comment on above: Diarrhea Start: 09-10-2023 Home visit Radha Bartholomew lm RN AG Helper/Driver Comment on above: Primary Care Coordin ator- Other (Care Coordination) Start: 08-24-2023 ambulatory Radha Bartholomew lm, RN AG Helper/Driver Start: 08-24-2023 Home visit Radha Bartholomew lm RN AG Helper/Driver Comment on above: Primary Care Coordin ator- Other (Care Coordination) Start: 08-20-2023 Telephone encounter Marianna Ruizden VEHICLE DISMANTLER.SPLUNK D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 Work Phone: [facility] Comment on above: Patient Question Start: 08-16-2023 Telephone encounter Marianna Ruizden VEHICLE DISMANTLER.SPLUNK D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 Work Phone: [facility] Comment on above: Results Start: 08-11-2023 Telephone encounter Marianna Ruizden VEHICLE DISMANTLER.SPLUNK D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 Work Phone: [facility] Comment on above: Results Start: 08-09-2023 End: 08-09-2023 ambulatory MARIANNA Bourne QUEDEN Facility:[facility] Start: 08-09-2023 End: 08-09-2023 Patient encounter procedure Marianna Tayla Wagner VEHICLE DISMANTLER.SPLUNK D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 Work Phone: [facility] Comment on above: Type 2 diabetes kirk itus with complication, with long-term current use of insulin (HCC) (Primary Dx); Alcohol-induced chronic pancreatitis (HCC); Irritable bowel syndrome, unspecified type; Chronic diarrhea; Weight loss; Primary hypertension; Pacemaker; History of dissection of thoracic aorta; Cigarette smoker; Hyperlipidemia, mixed; Vitamin D deficiency; Stage 3 chronic kidney disease, unspecified whether stage 3a or 3b CKD (HCC); Gastroesophageal reflux disease, unspecified whether esophagitis present; Dysuria; Screening for prostate cancer; Screening for HIV (human immunodeficiency virus) Start: 08-09-2023 End: 08-09-2023 ambulatory MARIANNA RUIZDEVYN Facility:[facility] Start: 05-20-2023 VEHICLE MODIFICATION TECHNICIAN-C Andreas Pathak VEHICLE MODIFICATION TECHNICIAN Work Phone: [facility] Work Phone: Start: 05-19-2023 VEHICLE MODIFICATION TECHNICIAN-C Andreas Pathak VEHICLE MODIFICATION TECHNICIAN Work Phone: [facility] Work Phone: Start: 05-18-2023 VEHICLE MODIFICATION TECHNICIAN-C Andreas Pathak VEHICLE MODIFICATION TECHNICIAN Work Phone: [facility] Work Phone: Start: 05-17-2023 VEHICLE MODIFICATION TECHNICIAN-C Andreas Pathak VEHICLE MODIFICATION TECHNICIAN Work Phone: [facility] Work Phone: Start: 05-16-2023 VEHICLE MODIFICATION TECHNICIAN-C Andreas Pathak VEHICLE MODIFICATION TECHNICIAN Work Phone: [facility] Work Phone: Start: 05-15-2023 VEHICLE MODIFICATION TECHNICIAN-C Andreas Pathak VEHICLE MODIFICATION TECHNICIAN Work Phone: [facility] Work Phone: Start: 05-14-2023 VEHICLE MODIFICATION TECHNICIAN-Stephen Pathak VEHICLE MODIFICATION TECHNICIAN Work Phone: [facility] Work Phone: Start: 05-13-2023 VEHICLE MODIFICATION TECHNICIAN-C Andreas Pathak VEHICLE MODIFICATION TECHNICIAN Work Phone: [facility] Work Phone: Start: 05-13-2023 VEHICLE MODIFICATION TECHNICIAN-C Andreas Pathak VEHICLE MODIFICATION TECHNICIAN Work Phone: [facility] Start: 05-12-2023 VEHICLE MODIFICATION TECHNICIAN-C Andreas Pathak VEHICLE MODIFICATION TECHNICIAN Work Phone: [facility] Start: 05-12-2023 VEHICLE MODIFICATION TECHNICIAN-C Andreas Pathak VEHICLE MODIFICATION TECHNICIAN Work Phone: [facility] Work Phone: Start: 05-11-2023 VEHICLE MODIFICATION TECHNICIAN-C Andreas Pathak VEHICLE MODIFICATION TECHNICIAN Work Phone: [facility] Work Phone: Start: 05-10-2023 VEHICLE MODIFICATION TECHNICIAN-C Andreas Pathak VEHICLE MODIFICATION TECHNICIAN Work Phone: [facility] Start: 05-10-2023 VEHICLE MODIFICATION TECHNICIAN-C Andreas Pathak VEHICLE MODIFICATION TECHNICIAN Work Phone: [facility] Work Phone: Start: 05-09-2023 End: 05-20-2023 Evaluation and management of inpatient VEHICLE MODIFICATION TECHNICIAN-C Andreas Pathak VEHICLE MODIFICATION TECHNICIAN Work Phone: [facility] Work Phone: Start: 05-09-2023 End: 05-20-2023 VEHICLE MODIFICATION TECHNICIAN-C Andreas Pathak VEHICLE MODIFICATION TECHNICIAN Work Phone: [facility] Work Phone: Start: 04-27-2023 Non-patient / Non-visit VEHICLE MODIFICATION TECHNICIAN-C Harry Pathak VEHICLE MODIFICATION TECHNICIAN Work Phone: [facility] Work Phone: Start: 04-27-2023 VEHICLE MODIFICATION TECHNICIAN-C Andreas Pathak VEHICLE MODIFICATION TECHNICIAN Work Phone: [facility] Work Phone: Start: 04-26-2023 Non-patient / Non-visit VEHICLE MODIFICATION TECHNICIAN-C R chuck Pathak VEHICLE MODIFICATION TECHNICIAN Work Phone: [facility] Work Phone: Start: 04-26-2023 VEHICLE MODIFICATION TECHNICIAN-C Andreas Pathak VEHICLE MODIFICATION TECHNICIAN Work Phone: [facility] Work Phone: Start: 04-25-2023 Non-patient / Non-visit VEHICLE MODIFICATION TECHNICIAN-C R chuck Cam[place]ins VEHICLE MODIFICATION TECHNICIAN Work Phone: [facility] Work Phone: Start: 04-25-2023 VEHICLE MODIFICATION TECHNICIAN-C Andreas Pathak VEHICLE MODIFICATION TECHNICIAN Work Phone: [facility] Work Phone: Start: 04-24-2023 Non-patient / Non-visit VEHICLE MODIFICATION TECHNICIAN-C R chuck Pathak VEHICLE MODIFICATION TECHNICIAN Work Phone: [facility] Work Phone: Start: 04-24-2023 VEHICLE MODIFICATION TECHNICIAN-C Andreas Pathak VEHICLE MODIFICATION TECHNICIAN Work Phone: [facility] Work Phone: Start: 04-23-2023 Non-patient / Non-visit VEHICLE MODIFICATION TECHNICIAN-C R chuck Luxpkins VEHICLE MODIFICATION TECHNICIAN Work Phone: [facility] Work Phone: Start: 04-23-2023 VEHICLE MODIFICATION TECHNICIAN-C Andreas Pathak VEHICLE MODIFICATION TECHNICIAN Work Phone: [facility] Work Phone: Start: 04-22-2023 Non-patient / Non-visit VEHICLE MODIFICATION TECHNICIAN-C R ichard Greenup VEHICLE MODIFICATION TECHNICIAN Work Phone: [facility] Work Phone: Start: 04-22-2023 VEHICLE MODIFICATION TECHNICIAN-C Andreas Pathak VEHICLE MODIFICATION TECHNICIAN Work Phone: [facility] Work Phone: Start: 04-21-2023 Non-patient / Non-visit VEHICLE MODIFICATION TECHNICIAN-C R chuck Pathak VEHICLE MODIFICATION TECHNICIAN Work Phone: [facility] Work Phone: Start: 04-21-2023 VEHICLE MODIFICATION TECHNICIAN-C Andreas Pathak VEHICLE MODIFICATION TECHNICIAN Work Phone: [facility] Work Phone: Start: 04-20-2023 Evaluation and manag ement of inpatient VEHICLE MODIFICATION TECHNICIAN-C Andreas Pathak VEHICLE MODIFICATION TECHNICIAN Work Phone: [facility] 3 Work Phone: Start: 04-20-2023 Non-patient / Non-visit VEHICLE MODIFICATION TECHNICIAN-C Harry Pathak VEHICLE MODIFICATION TECHNICIAN Work Phone: [facility] Work Phone: Start: 04-20-2023 End: 04-27-2023 Evaluation and management of inpatient VEHICLE MODIFICATION TECHNICIAN-C Andreas Pathak VEHICLE MODIFICATION TECHNICIAN Work Phone: [facility] Work Phone: Start: 04-20-2023 End: 04-27-2023 VEHICLE MODIFICATION TECHNICIAN-C Andreas Pathak VEHICLE MODIFICATION TECHNICIAN Work Phone: [facility] 3 Work Phone: Start: 04-14-2023 End: 04-14-2023 Patient encounter procedure VEHICLE MODIFICATION TECHNICIAN-C Andreas Pathak VEHICLE MODIFICATION TECHNICIAN Work Phone: [facility] Work Phone: Start: 04-14-2023 End: 04-14-2023 VEHICLE MODIFICATION TECHNICIAN-C Andreas Pathak VEHICLE MODIFICATION TECHNICIAN Work Phone: [facility] Work Phone: Start: 04-01-2023 End: 04-06-2023 ambulatory ANDREAS Viola LUXZO VEHICLE DISMANTLER - SPLUNK D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 Facility:B Start: 03-15-2023 End: 03-19-2023 Evaluation and management of inpatient DR MARIELY WAGNER MD Facility:A Start: 03-15-2023 End: 03-16-2023 ambulatory ANDREAS CAMARGOKINS VEHICLE DISMANTLER - SPLUNK D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 Facility:A Start: 03-15-2023 End: 03-19-2023 Evaluation and management of inpatient DR MARIELY WAGNER MD [facility] Start: 03-15-2023 End: 03-15-[address] VANESSA GROSS MD [facility] Start: 03-01-2023 ambulatory ANDREAS TOWNSEND VEHICLE DISMANTLER - SPLUNK D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 Facility:[facility] Start: 02-22-2023 ambulatory ANDREAS LUXKathi CARY VEHICLE DISMANTLER - SPLUNK D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 Facility:B Start: 02-22-2023 End: 03-22-2024 OTHER THERAPY ANDREAS Viola LUXZO VEHICLE DISMANTLER - SPLUNK D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 [facility] Start: 02-17-2023 End: 02-17-2023 Patient encounter procedure VEHICLE MODIFICATION TECHNICIAN-C Andreas Pathak VEHICLE MODIFICATION TECHNICIAN Work Phone: [facility] Work Phone: Start: 02-17-2023 End: 02-17-2023 VEHICLE MODIFICATION TECHNICIAN-C Andreas Pathak VEHICLE MODIFICATION TECHNICIAN Work Phone: [facility] Work Phone: Start: 01-13-2023 End: 01-13-2023 Patient encounter procedure VEHICLE MODIFICATION TECHNICIAN-Stephen Pathak VEHICLE MODIFICATION TECHNICIAN Work Phone: [facility] Work Phone: Start: 11-01-2022 End: 11-01-2022 [facility] Work Phone: Start: 10-15-2022 End: 10-16-2022 ambulatory ANDREAS LUXPKINS VEHICLE DISMANTLER - SPLUNK D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 Facility:B Start: 10-15-2022 End: 10-15-2022 Patient encounter procedure ANDRAES LUXPKINS VEHICLE DISMANTLER - SPLUNK D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 [facility] Start: 10-05-2022 End: 10-05-2022 Emergency department patient visit ANDREAS LUXPKINS VEHICLE DISMANTLER - SPLUNK D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 Facility:B Start: 10-05-2022 End: 10-05-2022 Emergency department patient visit MAGDALENA NICKERSON DO [facility] Start: 09-22-2022 End: 09-23-2022 ambulatory ANDREAS LUXPKINS VEHICLE DISMANTLER - SPLUNK D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 Facility:[facility] Start: 07-20-2022 End: 07-21-2022 [facility] Work [facility]: Start: 07-02-2022 End: 07-07-2022 ambulatory ANDREAS LUXPKINS VEHICLE DISMANTLER - SPLUNK D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 Facility:B Start: 07-02-2022 End: 07-06-2022 Outreach Lab ANDREAS LUXPKINS VEHICLE DISMANTLER - SPLUNK D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 [facility] Start: 06-19-2022 End: 06-20-2022 ambulatory ANDREAS LUXPKINS VEHICLE DISMANTLER - SPLUNK D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 Facility:[facility] Start: 06-19-2022 End: 06-19-2022 Patient encounter procedure ANDREAS LUXPKINS VEHICLE DISMANTLER - SPLUNK D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 [facility] Start: 05-13-2022 End: 05-13-2022 Emergency department patient visit DR MERRICK SINGH DO Facility:B Start: 05-13-2022 End: 05-13-2022 Emergency department patient visit DR MERRICK SINGH DO [facility] Start: 03-23-2022 Non-patient / Non-visit VEHICLE MODIFICATION TECHNICIAN-C R chuck Pathak VEHICLE MODIFICATION TECHNICIAN Work Phone: [facility] Start: 03-22-2022 Non-patient / Non-visit VEHICLE MODIFICATION TECHNICIAN-C R chuck Pathak VEHICLE MODIFICATION TECHNICIAN Work Phone: [facility] Start: 03-21-2022 Non-patient / Non-visit VEHICLE MODIFICATION TECHNICIAN-C R chuck Pathak VEHICLE MODIFICATION TECHNICIAN Work Phone: [facility] Start: 03-21-2022 End: 03-24-2022 Evaluation and management of inpatient VEHICLE MODIFICATION TECHNICIAN-C Andreas Pathak VEHICLE MODIFICATION TECHNICIAN [facility] Start: 02-04-2022 Non-patient / Non-visit VEHICLE MODIFICATION TECHNICIAN-C R chuck Pathak VEHICLE MODIFICATION TECHNICIAN Work Phone: [facility] Start: 02-03-2022 Non-patient / Non-visit VEHICLE MODIFICATION TECHNICIAN-C R chuck Pathak VEHICLE MODIFICATION TECHNICIAN Work Phone: [facility] Start: 02-02-2022 Non-patient / Non-visit VEHICLE MODIFICATION TECHNICIAN-C R chuck Pathak VEHICLE MODIFICATION TECHNICIAN Work Phone: [facility] Start: 02-01-2022 End: 02-04-2022 Evaluation and management of inpatient VEHICLE MODIFICATION TECHNICIAN-C Andreas Pathak VEHICLE MODIFICATION TECHNICIAN [facility] Start: 11-14-2021 Non-patient / Non-visit VEHICLE MODIFICATION TECHNICIAN-C R chuck Pathak VEHICLE MODIFICATION TECHNICIAN Work Phone: [facility] Start: 11-13-2021 Non-patient / Non-visit VEHICLE MODIFICATION TECHNICIAN-C R chuck Pathak VEHICLE MODIFICATION TECHNICIAN Work Phone: [facility] Start: 11-12-2021 Non-patient / Non-visit VEHICLE MODIFICATION TECHNICIAN-C R chuck Pathak VEHICLE MODIFICATION TECHNICIAN Work Phone: [facility] Start: 11-11-2021 End: 11-14-2021 Evaluation and management of inpatient VEHICLE MODIFICATION TECHNICIAN-C Andreas Pathak VEHICLE MODIFICATION TECHNICIAN Work Phone: [facility] 3 Start: 11-08-2021 Non-patient / Non-visit VEHICLE MODIFICATION TECHNICIAN-C Harry Pathak VEHICLE MODIFICATION TECHNICIAN Work Phone: [facility] Start: 11-07-2021 Non-patient / Non-visit VEHICLE MODIFICATION TECHNICIAN-C R chuck Pathak VEHICLE MODIFICATION TECHNICIAN Work Phone: [facility] Start: 11-06-2021 Non-patient / Non-visit VEHICLE MODIFICATION TECHNICIAN-C Harry Pathak VEHICLE MODIFICATION TECHNICIAN Work Phone: [facility] Start: 11-05-2021 End: 11-08-2021 Evaluation and management of inpatient VEHICLE MODIFICATION TECHNICIAN-C Andreas Pathak VEHICLE MODIFICATION TECHNICIAN Work Phone: [facility] Start: 11-05-2021 Non-patient / Non-visit VEHICLE MODIFICATION TECHNICIAN-C Harry Pathak VEHICLE MODIFICATION TECHNICIAN Work Phone: [facility] Start: 10-06-2021 End: 10-06-2021 Emergency department patient visit VEHICLE MODIFICATION TECHNICIAN-C Andreas Pathak VEHICLE MODIFICATION TECHNICIAN Work Phone: [facility] Start: 09-30-2021 End: 09-30-2021 Emergency department patient visit VEHICLE MODIFICATION TECHNICIAN-C Andreas Pathak VEHICLE MODIFICATION TECHNICIAN Work Phone: [facility] Start: 08-15-2021 End: 08-15-2021 Patient encounter procedure VEHICLE MODIFICATION TECHNICIAN-C Andreas Pathak VEHICLE MODIFICATION TECHNICIAN Work Phone: [facility] Start: 08-14-2021 End: 08-15-2021 Non-patient / Non-visit VEHICLE MODIFICATION TECHNICIAN-C Andreas Pathak VEHICLE MODIFICATION TECHNICIAN Work Phone: [facility] Start: 08-06-2021 End: 08-06-2021 Patient encounter procedure ANDREAS PATHAK VEHICLE DISMANTLER - SPLUNK D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 [facility] Start: 05-31-2021 Non-patient / Non-visit VEHICLE MODIFICATION TECHNICIAN-C Harry Pathak VEHICLE MODIFICATION TECHNICIAN Work Phone: [facility] Start: 05-30-2021 Non-patient / Non-visit VEHICLE MODIFICATION TECHNICIAN-C R chuck Pathak VEHICLE MODIFICATION TECHNICIAN Work Phone: [facility] Start: 05-29-2021 Non-patient / Non-visit VEHICLE MODIFICATION TECHNICIAN-C R chuck Pathak VEHICLE MODIFICATION TECHNICIAN Work Phone: [facility] Start: 05-29-2021 End: 06-01-2021 Evaluation and management of inpatient VEHICLE MODIFICATION TECHNICIAN-C Andreas Pathak VEHICLE MODIFICATION TECHNICIAN Work Phone: [facility] 3 Start: 05-21-2021 End: 05-22-2021 Emergency department patient visit VEHICLE MODIFICATION TECHNICIAN-C Andreas Pathak VEHICLE MODIFICATION TECHNICIAN Work Phone: [facility] Start: 05-05-2021 Non-patient / Non-visit VEHICLE MODIFICATION TECHNICIAN-C Harry Pathak VEHICLE MODIFICATION TECHNICIAN Work Phone: [facility] Start: 05-05-2021 Non-patient / Non-visit VEHICLE MODIFICATION TECHNICIAN-C Harry Pathak VEHICLE MODIFICATION TECHNICIAN Work Phone: [facility] Start: 05-05-2021 Non-patient / Non-visit VEHICLE MODIFICATION TECHNICIAN-C Harry Pathak VEHICLE MODIFICATION TECHNICIAN Work Phone: [facility] Start: 05-04-2021 End: 05-05-2021 Evaluation and management of inpatient [facility] Start: 05-02-2021 End: 05-02-2021 Emergency department patient visit DR SHILPI BURNS MD [facility] Start: 04-09-2021 End: 04-09-2021 Patient encounter procedure ANDREAS PATHAK VEHICLE DISMANTLER - SPLUNK D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 [facility] Start: 08-25-2018 Notes/Results Only Other Other NOTE S/RESULTS Start: 08-25-2018 End: 08-25-2018 Patient encounter procedure Other Other [facility] Start: 07-15-2018 Patient encounter procedure LYSSA MONTERROSO Facility:[facility] Start: 04-08-2018 Patient encounter procedure LYSSA MONTERROSO Facility:[facility] Start: 01-14-2018 End: 01-15-2018 Patient encounter procedure LYSSA MONTERROSO Facility:[facility] Start: 11-09-2017 End: 11-09-2017 Emergency department patient visit [facility] Start: 11-01-2017 Patient encounter procedure UMAIR CHAYA Facility:[facility] Start: 07-01-2017 Patient encounter procedure LYSSA MONTERROSO Facility:[facility] Start: 04-29-2017 End: 04-29-2017 Patient encounter procedure UMAIR LARKIN Facility:[facility] Start: 03-16-2016 End: 03-20-2016 Patient encounter status Marianna Wagner VEHICLE DISMANTLER.SPLUNK D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 Work Phone: [facility] Procedures Date Procedure Procedure Detail Performing Clinician Start: 08-03-2024 Blood count smear mcrscp w/mnl difrntl wbc count No Primary Care Physician Start: 08-03-2024 Estimated creatinine clearance No Primar y Care Physician Start: 08-03-2024 Mean corpuscular hemoglobin concentration determination No Primary Care Physician Start: 08-03-2024 Nucleated red blood cell count procedure No Primary Care Physician Start: 08-03-2024 Platelet mean volume determination No Pr imary Care Physician Start: 08-02-2024 Assay of triglycerides No Primary Care Physician Start: 08-02-2024 Total cholesterol:HDL ratio measurement No Primary Care Physician Start: 08-01-2024 Computed tomography of abdomen and pelvis with intravenous contrast No Primary Care Physician Start: 08-01-2024 CT angiography of chest with contrast No Primary Care Physician Start: 08-01-2024 X-ray of chest, PA and lateral views No Primary Care Physician Start: 08-01-2024 Blood count smear mcrscp w/mnl difrntl wbc count No Primary Care Physician Start: 08-01-2024 D-dimer assay, quantitative No Primary C are Physician Start: 08-01-2024 Mean corpuscular hemoglobin concentration determination No Primary Care Physician Start: 08-01-2024 Nucleated red blood cell count procedure No Primary Care Physician Start: 08-01-2024 Platelet mean volume determination No Pr imary Care Physician Start: 08-01-2024 Serum inorganic phosphate measurement No Primary Care Physician Start: 08-01-2024 Triacylglycerol lipase measurement No Pr imary Care Physician Start: 07-13-2024 Blood count smear mcrscp w/mnl difrntl wbc count No Primary Care Physician Start: 07-13-2024 Estimated creatinine clearance No Primar y Care Physician Start: 07-13-2024 Mean corpuscular hemoglobin concentration determination No Primary Care Physician Start: 07-13-2024 Nucleated red blood cell count procedure No Primary Care Physician Start: 07-13-2024 Platelet mean volume determination No Pr imary Care Physician Start: 07-13-2024 Serum inorganic phosphate measurement No Primary Care Physician Start: 07-12-2024 Small bowel series No Primary Care Physician Start: 07-12-2024 Plain X-ray abdomen No Primary Care Physician Start: 07-11-2024 Blood count smear mcrscp w/mnl difrntl wbc count No Primary Care Physician Start: 07-11-2024 Estimated creatinine clearance No Primar y Care Physician Start: 07-11-2024 Mean corpuscular hemoglobin concentration determination No Primary Care Physician Start: 07-11-2024 Nucleated red blood cell count procedure No Primary Care Physician Start: 07-11-2024 Platelet mean volume determination No Pr imary Care Physician Start: 07-11-2024 Triacylglycerol lipase measurement No Pr imary Care Physician Start: 07-11-2024 Benzodiazepine measurement, urine No Aneta andrew Care Physician Start: 07-11-2024 Cocaine measurement, urine No Primary Ca re Physician Start: 07-11-2024 Methadone measurement, urine No Primary Care Physician Start: 07-11-2024 Urine cannabinoid measurement No Primary Care Physician Start: 07-11-2024 Urine microscopy: red cells No Primary C are Physician Start: 07-11-2024 Urine opiate measurement No Primary Care Physician Start: 07-11-2024 Urnls dip stick/tablet reagent auto microscopy No Primary Care Physician Start: 07-11-2024 Computed tomography of abdomen and pelvis with intravenous contrast No Primary Care Physician Start: 07-06-2024 Estimated creatinine clearance No Primar Care Physician Start: 07-06-2024 Mean corpuscular hemoglobin concentration determination No Primary Care Physician Start: 07-06-2024 Platelet mean volume determination No Pr imary Care Physician Start: 07-04-2024 Albumin/Globulin ratio No Primary Care Physician Start: 07-04-2024 Antibody measurement No Primary Care Physician Start: 07-04-2024 Antibody to centromere measurement No Pr imary Care Physician Start: 07-04-2024 Antibody to extractable nuclear antigen measurement No Primary Care Physician Start: 07-04-2024 Antibody to RAMANA-1 measurement No Primary Care Physician Start: 07-04-2024 Antibody to lupus La protein measurement No Primary Care Physician Start: 07-04-2024 Antibody to SS-A measurement No Primary Care Physician Start: 07-04-2024 Autoantibody measurement No Primary Care Physician Start: 07-04-2024 Calculation of international normalized ratio No Primary Care Physician Start: 07-04-2024 Endomysial antibody IgA level No Primary Care Physician Start: 07-04-2024 Gliadin antibody, IgA measurement No [facility] Care Physician Start: 07-04-2024 Gliadin antibody, IgG measurement No [facility] Care Physician Start: 07-04-2024 Immunoglobulin M measurement No Primary Care Physician Start: 07-04-2024 In-vitro immunologic test No Primary Car e Physician Start: 07-04-2024 TROUBLE TRACER antibody measurement No Primary Care Physician Start: 07-04-2024 Urine immunofixation No Primary Care Physician Start: 07-03-2024 Procedure No Primary Care Physician Start: 07-03-2024 Lactate dehydrogenase ldh No Primary Car e Physician Start: 07-03-2024 Serum inorganic phosphate measurement No Primary Care Physician Start: 07-01-2024 Blood count smear mcrscp w/mnl difrntl wbc count No Primary Care Physician Start: 07-01-2024 Nucleated red blood cell count procedure No Primary Care Physician Start: 06-30-2024 Venous oxygen saturation measurement No Primary Care Physician Start: 06-30-2024 Plain chest X-ray No Primary Care Physician Start: 06-30-2024 Urine microscopy: red cells No Primary C are Physician Start: 06-30-2024 Urnls dip stick/tablet reagent auto microscopy No Primary Care Physician Start: 06-30-2024 Computed tomography of abdomen and pelvis with intravenous contrast No Primary Care Physician Start: 06-30-2024 Assay of lactate No Primary Care Physician Start: 06-30-2024 Triacylglycerol lipase measurement No Pr imary Care Physician Start: 06-28-2024 Blood count smear mcrscp w/mnl difrntl wbc count No Primary Care Physician Start: 06-28-2024 Estimated creatinine clearance No Primar y Care Physician Start: 06-28-2024 Mean corpuscular hemoglobin concentration determination No Primary Care Physician Start: 06-28-2024 Nucleated red blood cell count procedure No Primary Care Physician Start: 06-28-2024 Platelet mean volume determination No Pr imary Care Physician Start: 06-27-2024 Esophagogastroduodenoscopy No Primary Ca re Physician Start: 06-27-2024 Calculation of international normalized ratio No Primary Care Physician Start: 06-27-2024 Serum inorganic phosphate measurement No Primary Care Physician Start: 06-26-2024 Blood count leukocyte wbc automated No Primary Care Physician Start: 06-26-2024 Mononuclear cell count No Primary Care Physician Start: 06-26-2024 Polymorphonuclear leukocyte count No [facility] Care Physician Start: 06-26-2024 Anaerobic microbial culture No Primary C are Physician Start: 06-26-2024 Gram stain microscopy No Primary Care Physician Start: 06-26-2024 Microbial culture, body fluid No Primary Care Physician Start: 06-26-2024 Assay of lactate No Primary Care Physician Start: 06-26-2024 Centesis No Primary Care Physician Start: 06-26-2024 Assay of triglycerides No Primary Care Physician Start: 06-26-2024 Total cholesterol:HDL ratio measurement No Primary Care Physician Start: 06-26-2024 Glucose measurement, body fluid No Prima ry Care Physician Start: 06-25-2024 Iadna-dna/rna gi pthgn multiplex probe tq 6-11 No Primary Care Physician Start: 06-25-2024 Benzodiazepine measurement, urine No Aneta andrew Care Physician Start: 06-25-2024 Cocaine measurement, urine No Primary Ca re Physician Start: 06-25-2024 Methadone measurement, urine No Primary Care Physician Start: 06-25-2024 Urine cannabinoid measurement No Primary Care Physician Start: 06-25-2024 Urine microscopy: red cells No Primary C are Physician Start: 06-25-2024 Urine opiate measurement No Primary Care Physician Start: 06-25-2024 Urnls dip stick/tablet reagent auto microscopy No Primary Care Physician Start: 06-25-2024 Venous oxygen saturation measurement No Primary Care Physician Start: 06-25-2024 Estimated creatinine clearance No Primar y Care Physician Start: 06-25-2024 Triacylglycerol lipase measurement No Pr imary Care Physician Start: 06-25-2024 Computed tomography of abdomen and pelvis with intravenous contrast No Primary Care Physician Start: 06-25-2024 Clostridium difficile detection No Prima ry Care Physician Start: 06-25-2024 Lactoferrin measurement No Primary Care Physician Start: 06-25-2024 Nucleic acid assay No Primary Care Physician Start: 06-25-2024 Ova OR parasites identification No Prima ry Care Physician Start: 04-05-2024 Colonoscopy flx dx w/collj spec when pfrmd Susana Ramirez VEHICLE DISMANTLER.SPLUNK D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 Work Phone: Start: 04-05-2024 Esophagogastroduodenoscopy transoral diagnostic Susana Ramirez VEHICLE DISMANTLERLynnetteSPLUNK D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 Work Phone: Start: 04-05-2024 Gluc bld gluc mntr dev cleared fda spec home use Lucas Delarosa VEHICLE DISMANTLER.ENGINEERING LAB TECHNICIAN Work Phone: Start: 04-05-2024 PACER OR ICD CHECK ([place], [place]) Phoebe pitts MD Work Phone: Start: 04-05-2024 Colonoscopy Phoebe Vazquez MD Work Phone: Start: 10-21-2023 Ct abdomen & pelvis w/o contrast material Marianna Wagner VEHICLE DISMANTLER.SPLUNK D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 Work Phone: Start: 08-09-2023 Culture bacterial quanttative colony count urine Marianna Wagner VEHICLE DISMANTLER.SPLUNK D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 Work Phone: Start: 08-09-2023 Urnls dip stick/tablet rgnt auto w/o microscopy Marianna Wagner APRN.SPLUNK D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 Work Phone: Start: 05-16-2023 Measurement of occult blood in stool specimen using immunoassay VEHICLE MODIFICATION TECHNICIAN-C Andreas Pathak VEHICLE MODIFICATION TECHNICIAN Work Phone: Start: 05-11-2023 US urinary tract VEHICLE MODIFICATION TECHNICIAN-C Andreas Pathak VEHICLE MODIFICATION TECHNICIAN Work Phone: Start: 05-10-2023 Urine culture VEHICLE MODIFICATION TECHNICIAN-C Andreas Pathak VEHICLE MODIFICATION TECHNICIAN Work Phone: Start: 05-10-2023 VEHICLE MODIFICATION TECHNICIAN-C Andreas Pathak VEHICLE MODIFICATION TECHNICIAN Work Phone: Start: 05-09-2023 Computed tomography of abdomen and pelvis with intravenous contrast VEHICLE MODIFICATION TECHNICIAN-C Andreas Pathak VEHICLE MODIFICATION TECHNICIAN Work Phone: Start: 05-09-2023 Plain chest X-ray VEHICLE MODIFICATION TECHNICIAN-C Andreas Pathak VEHICLE MODIFICATION TECHNICIAN Work Phone: Start: 04-23-2023 CT of head without contrast VEHICLE MODIFICATION TECHNICIAN-C Andreas Pathak VEHICLE MODIFICATION TECHNICIAN Work Phone: Start: 04-20-2023 Computed tomography of abdomen and pelvis with intravenous contrast VEHICLE MODIFICATION TECHNICIAN-C Andreas Pathak VEHICLE MODIFICATION TECHNICIAN Work Phone: Start: 02-01-2022 Plain chest X-ray VEHICLE MODIFICATION TECHNICIAN-C Andreas Pathak VEHICLE MODIFICATION TECHNICIAN Work Phone: Start: 09-30-2021 Plain chest X-ray VEHICLE MODIFICATION TECHNICIAN-C Andreas Pathak VEHICLE MODIFICATION TECHNICIAN Work Phone: Start: 05-30-2021 Ultrasonography of abdomen VEHICLE MODIFICATION TECHNICIAN-C Andreas Pathak VEHICLE MODIFICATION TECHNICIAN Work Phone: Start: 05-21-2021 End: 05-21-2021 Viral antigen assay VEHICLE MODIFICATION TECHNICIAN-C Andreas Pathak VEHICLE MODIFICATION TECHNICIAN Work Phone: Start: 05-05-2021 Cardiovascular stress test using pharmacologic stress agent VEHICLE MODIFICATION TECHNICIAN-C Andreas Pathak VEHICLE MODIFICATION TECHNICIAN Work Phone: Start: 05-04-2021 Plain chest X-ray Start: 11-09-2017 Urinalysis BANDAR DAIGLE Comment on above: Result Comment: URINALYSIS Performed By: #### [id number] ####[facility],[address] [place] [address] Start: 11-09-2017 Microscopic examination of blood, culture BANDAR HIDALGOD Comment on above: Performed By: #### [id number] ####[facility],[address] [place] [address] Pacemaker catheter, device (physical object) ANDREAS ZO VEHICLE DISMANTLER - SPLUNK D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 Repair of thoracic aortic aneurysm ANDREAS PATHAK VEHICLE DISMANTLER - SPLUNK D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 Replacement of aortic valve ANDREAS PATHAK VEHICLE DISMANTLER - SPLUNK D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 Plan of Treatment Date Care Activity Detail Author Start: 08-08-2028 Prostate specific antigen measurement Prostate Cancer Screening Discussion [facility] Start: 04-12-2025 Complete blood count Hemoglobin/Hematocrit [facility] Start: 04-05-2025 Screening for malignant neoplasm of colon [facility] Start: 12-26-2024 Annual PCP Team Chronic Disease Visit Annual PCP Team Chronic Disease Visit [facility] Start: 12-26-2024 BP Controlled (<130/80) BP Controlled (<130/80) [facility] Start: 10-14-2024 Complete blood count Hemoglobin/Hematocrit [facility] Start: 10-14-2024 Creatinine measurement Serum Creatinine [facility] Start: 10-14-2024 Hepatitis B screening Urine Albumin:Creatinine Ratio [facility] Start: 10-13-2024 Annual PCP Team Chronic Disease Visit Annual PCP Team Chronic Disease Visit [facility] Start: 10-13-2024 BP Controlled (<130/80) BP Controlled (<130/80) [facility] in Start: 10-13-2024 Screening for malignant neoplasm of colon [facility] Start: 10-09-2024 Influenza vaccination [facility] Start: 09-24-2024 Creatinine measurement Serum Creatinine [facility] Start: 09-11-2024 Hemoglobin A1c measurement HbA1C [facility] Start: 08-08-2024 Annual PCP Team Chronic Disease Visit Annual PCP Team Chronic Disease Visit [facility] Start: 08-08-2024 BP Controlled (<130/80) BP Controlled (<130/80) [facility] Start: 08-08-2024 Complete blood count Hemoglobin/Hematocrit [facility] Start: 08-08-2024 Creatinine measurement Serum Creatinine [facility] Start: 08-08-2024 Hepatitis B surface antibody level LDL Cholesterol [facility] Start: 08-03-2024 Patient discharge [facility] Start: 08-02-2024 [facility] Start: 08-02-2024 Referral to vascular surgeon [facility] Start: 08-01-2024 Following clinical pathway protocol [facility] Start: 08-01-2024 Application of elastic bandage [facility] Start: 08-01-2024 Assessment of risk of venous thromboembolism [facility] Start: 08-01-2024 Care regimes management [facility] Start: 08-01-2024 Elevation of affected extremity [facility] Start: 08-01-2024 Fall prevention [facility] Start: 08-01-2024 Inhalation therapy procedure [facility] Start: 08-01-2024 Insertion of catheter into peripheral vein [facility] Start: 08-01-2024 Introduction of urinary catheter [facility] Start: 08-01-2024 Measuring intake and output [facility] Start: 08-01-2024 Notification of physician [facility] Start: 08-01-2024 Oxygen therapy [facility] Start: 08-01-2024 Patient education [facility] Start: 08-01-2024 Patient referral to dietitian [facility] Start: 08-01-2024 Providing care according to standard [facility] Start: 08-01-2024 Provision of activity privileges [facility] Start: 08-01-2024 Referral to occupational therapist [facility] Start: 08-01-2024 Referral to service [facility] Start: 08-01-2024 Tobacco use cessation education [facility] Start: 08-01-2024 End: 08-01-2024 [facility] Start: 08-01-2024 Hospital admission, emergency, from emergency room, medical nature [facility] Start: 08-01-2024 Verification routine [facility] Start: 08-01-2024 Admission procedure [facility] Start: 08-01-2024 Consultation [facility] Start: 08-01-2024 Patient referral to dietitian [facility] Start: 08-01-2024 [facility] Start: 07-14-2024 Patient discharge [facility] Start: 07-13-2024 [facility] Start: 07-13-2024 Referral to service [facility] Start: 07-13-2024 End: 07-13-2024 ambulatory [facility] Comment on above: LABS 3MO OV/EARLY LABS* Start: 07-13-2024 Following clinical pathway protocol [facility] Start: 07-12-2024 [facility] Start: 07-12-2024 Referral to service [facility] Start: 07-11-2024 Ambulation without limitation [facility] Start: 07-11-2024 Assessment of risk of venous thromboembolism [facility] Start: 07-11-2024 Care regimes management [facility] Start: 07-11-2024 Inhalation therapy procedure [facility] Start: 07-11-2024 Insertion of catheter into peripheral vein [facility] Start: 07-11-2024 Measuring intake and output [facility] Start: 07-11-2024 Notification of physician [facility] Start: 07-11-2024 Patient referral to dietitian [facility] Start: 07-11-2024 Providing care according to standard [facility] Start: 07-11-2024 Referral to general surgeon [facility] Start: 07-11-2024 Referral to service [facility] Start: 07-11-2024 End: 07-11-2024 [facility] Start: 07-11-2024 Following clinical pathway protocol [facility] Start: 07-11-2024 Verification routine [facility] Start: 07-11-2024 Admission procedure [facility] Start: 07-11-2024 Hospital admission, emergency, from emergency room, medical nature [facility] Start: 07-11-2024 [facility] Start: 07-11-2024 Patient referral to dietitian [facility] Start: 07-06-2024 Patient discharge [facility] Start: 07-03-2024 Referral to ultrasound sonographer [facility] Start: 07-03-2024 In-vitro immunologic test [facility] Start: 07-03-2024 Laboratory test [facility] Start: 07-03-2024 Serum immunofixation [facility] Start: 07-03-2024 [facility] Start: 07-03-2024 Inhalation therapy procedure [facility] Start: 07-02-2024 Referral to gastroenterology service [facility] Start: 07-01-2024 [facility] Start: 07-01-2024 Application of intermittent pneumatic compression device [facility] Start: 07-01-2024 Physiotherapy of chest [facility] Start: 06-30-2024 Following clinical pathway protocol [facility] Start: 06-30-2024 Aspiration precautions [facility] Start: 06-30-2024 Assessment of risk of venous thromboembolism [facility] Start: 06-30-2024 Care regimes management [facility] Start: 06-30-2024 Catheterization of vein [facility] Start: 06-30-2024 Insertion of catheter into peripheral vein [facility] Start: 06-30-2024 Measuring intake and output [facility] Start: 06-30-2024 Notification of physician [facility] Start: 06-30-2024 Oxygen therapy [facility] Start: 06-30-2024 Providing care according to standard [facility] Start: 06-30-2024 Provision of activity privileges [facility] Start: 06-30-2024 Referral to service [facility] Start: 06-30-2024 End: 06-30-2024 [facility] Start: 06-30-2024 Admission procedure [facility] Start: 06-30-2024 Patient referral to dietitian [facility] Start: 06-30-2024 [facility] Start: 06-28-2024 Patient discharge [facility] Start: 06-27-2024 [facility] Start: 06-26-2024 Application of intermittent pneumatic compression device [facility] Start: 06-26-2024 Following clinical pathway protocol [facility] Start: 06-26-2024 End: 06-26-2024 Microbial culture, body fluid [facility] Start: 06-26-2024 Anaerobic Culture Anaerobic Culture [facility] Start: 06-26-2024 Referral to service [facility] Start: 06-26-2024 Following clinical pathway protocol [facility] Start: 06-26-2024 Aspiration precautions [facility] Start: 06-26-2024 Assessment of risk of venous thromboembolism [facility] Start: 06-26-2024 Care regimes management [facility] Start: 06-26-2024 Documentation procedure [facility] Start: 06-26-2024 Inhalation therapy procedure [facility] Start: 06-26-2024 Insertion of catheter into peripheral vein [facility] Start: 06-26-2024 Measuring intake and output [facility] Start: 06-26-2024 Notification of physician [facility] Start: 06-26-2024 Oxygen therapy [facility] Start: 06-26-2024 Providing care according to standard [facility] Start: 06-26-2024 Provision of activity privileges [facility] Start: 06-26-2024 Referral to gastroenterology service [facility] Start: 06-26-2024 Referral to service [facility] Start: 06-26-2024 Seizure precautions [facility] Start: 06-26-2024 Tobacco use cessation education [facility] Start: 06-26-2024 End: 06-26-2024 [facility] Start: 06-26-2024 Care of central venous catheter [facility] Start: 06-26-2024 Following clinical pathway protocol [facility] Start: 06-26-2024 Patient referral to dietitian [facility] Start: 06-25-2024 [facility] Start: 06-25-2024 Verification routine [facility] Start: 06-25-2024 Admission procedure [facility] Start: 06-25-2024 Hospital admission, emergency, from emergency room, medical nature [facility] Start: 06-25-2024 Clostridioides difficile (PCR) Clostridioides difficile (PCR) [facility] Start: 06-25-2024 Enteric Bacteriology Enteric Bacteriology [facility] Start: 06-25-2024 Ova and Parasites Ova and Parasites [facility] Start: 06-25-2024 Stool Lactoferrin Stool Lactoferrin [facility] Start: 04-12-2024 End: 04-12-2024 ambulatory [facility] Laboratory Comment on above: LABS* LABS EARLY/OV/EGD & COLONOSCOPY 04/05* Start: 04-05-2024 End: 04-05-2024 Patient encounter procedure [facility] Endoscopy Comment on above: Colon EGD- PLEASE DO NOT CANCEL THIS PAT IENT Start: 03-29-2024 End: 03-29-2024 ambulatory [place] [facility] Laboratory Comment on above: LABS* LABS EARLY / OV/EGD & COLONOSCOPY 03/16* Start: 03-16-2024 End: 03-16-2024 Patient encounter procedure 03/16/2024 11:00 AM EST Appointment LD SURGERY [address] [place] [address] Phoebe Vazquez MD [address] [place] [phone] Anemia, unspecified type [D64.9]; Weight loss [R63.4 LD SURGERY Comment on above: Anemia, unspecified type [D64.9]; Weight loss [R63.4 Start: 03-08-2024 End: 06-07-2024 Hemoglobin A1c in Blood HEMOGLOBIN A1C Lab Routine Type 2 diabetes mellitus with complication, with long-term current use of insulin (HCC) Expected: 03/08/2024, Expires: 06/07/2024 [facility] Work Phone: Comment on above: Expected: 03/08/2024, Expires: Start: 02-28-2024 End: 02-28-2024 Patient encounter procedure 02/28/2024 10:20 AM EST Office Visit [facility] [address] [place] [address] Marianna Wagner, VEHICLE DISMANTLER.SPLUNK D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 [address] [place] [address] follow up diabetes [facility] Comment on above: follow up diabetes Start: 02-09-2024 Hemoglobin A1c measurement HbA1C [facility] Start: 01-17-2024 End: 04-17-2024 CBC W Auto Differential panel - Blood COMPLETE BLOOD COUNT AND DIFFERENTIAL Lab STAT Anemia, unspecified type Expected: 01/17/2024, Expires: 04/17/2024 [facility] Work Phone: Comment on above: Expected: 01/17/2024, Expires: Start: 01-14-2024 End: 01-14-2024 ambulatory Andresmona Ventura [facility] Laboratory Comment on above: LABS? 2MO OV/LABS EARLY* Start: 01-07-2024 End: 01-07-2024 Patient encounter procedure 01/07/2024 10:00 AM EST Appointment Ambulatory Surgery [address] [place] [place] [phone] Amy Kohli MD [address] [facility] [place] [address] Anemia, unspecified type [D64.9]; Weight loss [R63.4] Ambulatory Surgery Comment on above: Anemia, unspecified type [D64.9]; Weight loss [R63.4] Start: 12-31-2023 End: 12-31-2023 Anesthesia consultation 12/31/2023 11:59 PM EST Anesthesia Event Ambulatory Surgery [address] [place] [address] Sabra Desouza, VEHICLE DISMANTLER.ENGINEERING LAB TECHNICIAN [address] [place] [address] Ambulatory Surgery Start: 12-27-2023 End: 12-27-2023 Patient encounter procedure 12/27/2023 2:00 PM EST Office Visit [facility] [address] [place] [address] Marianna Wagner, VEHICLE DISMANTLER.SPLUNK D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 [address], [place] [phone] 3 MTH F/U DM [facility] Comment on above: 3 MTH F/U DM Start: 12-24-2023 End: 12-24-2023 Patient encounter procedure 12/24/2023 11:20 AM EST Office Visit [facility] [address] [place] [place] [phone] Susana Ramirez APRN.SPLUNK D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 [address] [address] referred by pcp for anemia, currently being treated for e-coli and cdiff [facility] Comment on above: referred by pcp for anemia, currently be ing treated for e-coli and cdiff Start: 12-08-2023 End: 12-08-2023 Patient encounter procedure Radiology Comment on above: Diarrhea, unspecified type [R19.7]; Acut e pancreatitis, unspecified complication status, unspecified pancreatitis type [K85.90] 20 GAUGE Diarrhea, u nspecified type [R19.7]; Acute pancreatitis, unspecified complication status, unspecified pancreatitis type [K85.90] Start: 11-30-2023 End: 11-30-2023 Patient encounter procedure 11/30/2023 1:00 PM EDT Appointment Cat Scan [address] [place], [place] [phone] Diarrhea, unspecified type [R19.7] Cat Scan Comment on above: Diarrhea, unspecified type [R19.7] Start: 11-15-2023 End: 11-15-2023 ambulatory 11/15/2023 10:30 AM EDT Visit (SP) Office Hematology/Oncology [address] [place], [place] [phone] Vandana Edwards [address] [place], [place] [phone] VEHICLE MODIFICATION TECHNICIAN/ANEMIA/REF MARIANNA WAGNER* resched 10/24, 11/07 this date and time per patient Hematology/Oncology Comment on above: VEHICLE MODIFICATION TECHNICIAN/ANEMIA/REF MARIANNA WAGNER* resched , 11/07 this date and time per patient Start: 11-09-2023 End: 11-09-2023 Patient encounter procedure 11/09/2023 1:20 PM EDT Office Visit [facility] [address] [place] [address] Marianna Wagner, VEHICLE DISMANTLER.SPLUNK D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 [address] [place] [address] 3 MTH F/U DM [facility] Comment on above: 3 MTH F/U DM Start: 11-08-2023 End: 10-20-2024 CT Pancreas W contrast IV CT PANCREAS W IVCON Radiology Routine Diarrhea, unspecified type Acute pancreatitis, unspecified complication status, unspecified pancreatitis type Expected: 11/08/2023, Expires: 10/20/2024 [facility] Work Phone: Comment on above: Expected: 11/08/2023, Expires: Start: 11-08-2023 End: 11-08-2023 ambulatory 11/08/2023 10:30 AM EDT Visit (SP) Office Hematology/Oncology [address] [place], [place] [phone] Vandana Edwards [address] [place] [phone] VEHICLE MODIFICATION TECHNICIAN/ANEMIA/REF MARIANNA WAGNER* resched 10/24 this date and time per patient Hematology/Oncology Comment on above: VEHICLE MODIFICATION TECHNICIAN/ANEMIA/REF MARIANNA WAGNER* resched this date and time per patient Start: 11-02-2023 End: 11-02-2023 Patient encounter procedure 11/02/2023 3:05 PM EDT Office Visit [facility] [address] [place] [address] Susana Ramirez APRN.SPLUNK D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 [address] [place] [address] referred by pcp for anemia, currently being treated for e-coli and cdiff [facility] Comment on above: referred by pcp for anemia, currently be ing treated for e-coli and cdiff Start: 10-25-2023 End: 10-25-2023 ambulatory 10/25/2023 10:30 AM EDT Visit (SP) Office Hematology/Oncology [address] [place] [address] Vandana Edwards [address] [place] [address] VEHICLE MODIFICATION TECHNICIAN/ANEMIA/REF MARIANNA WAGNER* Hematology/Oncology Comment on above: VEHICLE MODIFICATION TECHNICIAN/ANEMIA/REF MARIANNA WAGNER* Start: 10-21-2023 End: 10-21-2023 Patient encounter procedure 10/21/2023 2:20 PM EDT Appointment Cat Scan [address] [place] [address] CCN was accepted, Cat Scan Comment on above: CCN was accepted, Start: 10-14-2023 End: 10-14-2023 Patient encounter procedure 10/14/2023 11:20 AM EDT Office Visit [facility] [address], [place] [phone] Marianna Wagner APRN.SPLUNK D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 [address] [place] [address] Follow up blood work results [facility] Comment on above: Follow up blood work results Start: 10-10-2023 Covid-19 Vaccine ( season) Covid-19 Vaccine ( season) [facility] Start: 10-10-2023 Covid-19 Vaccine ( season) Covid-19 Vaccine ( season) [facility] Start: 10-10-2023 Influenza vaccination [facility] Start: 10-07-2023 End: 01-06-2024 CBC W Auto Differential panel - Blood COMPLETE BLOOD COUNT AND DIFFERENTIAL Lab Routine Anemia, unspecified type Expected: 10/07/2023, Expires: 01/06/2024 [facility] Comment on above: Expected: 10/07/2023, Expires: Start: 10-07-2023 End: 10-06-2024 Cobalamin (Vitamin B12) [Mass/volume] in Serum or Plasma VITAMIN B12 Lab Routine Anemia, unspecified type Expected: 10/07/2023, Expires: 10/06/2024 [facility] Comment on above: Expected: 10/07/2023, Expires: Start: 10-07-2023 End: 01-06-2024 Comprehensive metabolic 2000 panel - Serum or Plasma COMPREHENSIVE METABOLIC PANEL Lab Routine Chronic diarrhea Expected: 10/07/2023, Expires: 01/06/2024 [facility] Comment on above: Expected: 10/07/2023, Expires: Start: 10-07-2023 End: 10-06-2024 Ferritin [Mass/volume] in Serum or Plasma FERRITIN Lab Routine Anemia, unspecified type Expected: 10/07/2023, Expires: 10/06/2024 [facility] Comment on above: Expected: 10/07/2023, Expires: Start: 10-07-2023 End: 10-06-2024 Folate [Mass/volume] in Serum or Plasma FOLATE, SERUM Lab Routine Anemia, unspecified type Expected: 10/07/2023, Expires: 10/06/2024 [facility] Comment on above: Expected: 10/07/2023, Expires: Start: 10-07-2023 End: 10-06-2024 Iron and Iron binding capacity panel - Serum or Plasma IRON AND TIBC Lab Routine Anemia, unspecified type Expected: 10/07/2023, Expires: 10/06/2024 [facility] Work Phone: Comment on above: Expected: 10/07/2023, Expires: Start: 09-24-2023 End: 09-24-2023 Patient encounter procedure 09/24/2023 3:05 PM EDT Office Visit [facility] [address] [place] [address] Susana Ramirez APRN.SPLUNK D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 [address] [place] [address] referred by pcp for diarrhea(recent tests at [facility]) [facility] Comment on above: referred by pcp for diarrhea(recent test s at [facility]) Start: 09-24-2023 End: 12-24-2023 CBC W Auto Differential panel - Blood COMPLETE BLOOD COUNT AND DIFFERENTIAL Lab Routine Diarrhea of presumed infectious origin Generalized abdominal pain Expected: 09/24/2023, Expires: 12/24/2023 [facility] Comment on above: Expected: 09/24/2023, Expires: 4 Start: 09-24-2023 End: 12-24-2023 Clostridioides difficile toxin genes [Presence] in Stool by GENEVA with probe detection C. DIFFICILE PCR Lab Routine Diarrhea of presumed infectious origin Expected: 09/24/2023, Expires: 12/24/2023 [facility] Comment on above: Expected: 09/24/2023, Expires: 4 Start: 09-24-2023 End: 12-24-2023 Comprehensive metabolic 2000 panel - Serum or Plasma COMPREHENSIVE METABOLIC PANEL Lab Routine Diarrhea of presumed infectious origin Generalized abdominal pain Expected: 09/24/2023, Expires: 12/24/2023 [facility] Comment on above: Expected: 09/24/2023, Expires: 4 Start: 09-24-2023 End: 12-24-2023 Giardia lamblia+Cryptosporidium sp Ag [Presence] in Stool by Immunoassay CRYPTOSPORIDIUM AND GIARDIA ANTIGENS BY EIA Microbiology Routine Diarrhea of presumed infectious origin Expected: 09/24/2023, Expires: 12/24/2023 [facility] Comment on above: Expected: 09/24/2023, Expires: 4 Start: 08-13-2023 End: 11-12-2023 Hemoglobin A1c in Blood [facility] Comment on above: Expected: 08/13/2023, Expires: 4 Start: 05-20-2023 Patient discharge [facility] Start: 05-20-2023 Procedure discontinued [facility] Start: 05-19-2023 Administration of blood product [facility] Start: 05-15-2023 Application of elastic bandage [facility] Start: 05-13-2023 Referral to night auditor [facility] Start: 05-11-2023 Referral to occupational therapist [facility] Start: 05-10-2023 Methicillin resistant Staphylococcus aureus screening test [facility] Start: 05-10-2023 Care regimes management [facility] Start: 05-10-2023 [facility] Start: 05-10-2023 Cardiac monitoring [facility] Start: 05-10-2023 Catheterization of vein [facility] Start: 05-10-2023 End: 05-10-2023 Notification of physician [facility] Start: 05-10-2023 Thyroid stimulating hormone measurement [facility] Start: 05-10-2023 End: 05-11-2023 [facility] Start: 05-09-2023 Application of intermittent pneumatic compression device [facility] Start: 05-09-2023 Following clinical pathway protocol [facility] Start: 05-09-2023 Aspiration precautions [facility] Start: 05-09-2023 Assessment of risk of venous thromboembolism [facility] Start: 05-09-2023 Documentation procedure [facility] Start: 05-09-2023 Incentive spirometry [facility] Start: 05-09-2023 Insertion of catheter into peripheral vein [facility] Start: 05-09-2023 Measuring intake and output [facility] Start: 05-09-2023 Oxygen therapy [facility] Start: 05-09-2023 Providing care according to standard [facility] Start: 05-09-2023 Provision of activity privileges [facility] Start: 05-09-2023 Referral to service [facility] Start: 05-09-2023 Seizure precautions [facility] Start: 05-09-2023 End: 05-10-2023 [facility] Start: 05-09-2023 Verification routine [facility] Start: 05-09-2023 Admission procedure [facility] Start: 05-09-2023 Patient referral to dietitian [facility] Start: 04-27-2023 Patient discharge [facility] Start: 04-23-2023 Referral to occupational therapist [facility] Start: 04-23-2023 End: 04-23-2023 Referral to service [facility] Start: 04-21-2023 [facility] Start: 04-20-2023 Following clinical pathway protocol [facility] Start: 04-20-2023 Ambulation without limitation [facility] Start: 04-20-2023 Assessment of risk of venous thromboembolism [facility] Start: 04-20-2023 Care regimes management [facility] Start: 04-20-2023 Insertion of catheter into peripheral vein [facility] Start: 04-20-2023 Notification of physician [facility] Start: 04-20-2023 Providing care according to standard [facility] Start: 04-20-2023 [facility] Start: 04-20-2023 Verification routine [facility] Start: 04-20-2023 Admission procedure [facility] Start: 04-20-2023 Blood chemistry [facility] Start: 04-20-2023 Triacylglycerol lipase measurement [facility] Start: 04-20-2023 [facility] Start: 10-09-2022 Covid-19 Vaccine () Covid-19 Vaccine ( season) [facility] Start: 2022 Hepatitis B Vaccine (1 of 3 - Risk 3-dose series) Hepatitis B Vaccine (1 of 3 - Risk 3-dose series) [facility] Start: 2022 RSV Vaccine (1 - 1-dose 60+ series) RSV Vaccine (1 - 1-dose 60+ series) [facility] Start: 2022 RSV Vaccine (1 - Risk 60-74 years 1-dose series) RSV Vaccine (1 - Risk 60-74 years 1-dose series) [facility] Start: 03-24-2022 Patient discharge [facility] Start: 03-23-2022 Referral to service [facility] Start: 03-23-2022 Referral to occupational therapist [facility] Start: 03-21-2022 Aspiration precautions [facility] Start: 03-21-2022 Assessment of risk of venous thromboembolism [facility] Start: 03-21-2022 Care regimes management [facility] Start: 03-21-2022 Fall prevention [facility] Start: 03-21-2022 Introduction of urinary catheter [facility] Start: 03-21-2022 Notification of physician [facility] Start: 03-21-2022 Oxygen therapy [facility] Start: 03-21-2022 Referral to service [facility] Start: 03-21-2022 Vital signs measurements [facility] Start: 03-21-2022 [facility] Start: 03-21-2022 Verification routine [facility] Start: 03-21-2022 Admission procedure [facility] Start: 03-21-2022 Patient referral to dietitian [facility] Start: 02-04-2022 Patient discharge [facility] Start: 02-01-2022 Ambulation without limitation [facility] Start: 02-01-2022 Assessment of risk of venous thromboembolism [facility] Start: 02-01-2022 Care regimes management [facility] Start: 02-01-2022 Fall prevention [facility] Start: 02-01-2022 Inhalation therapy procedure [facility] Start: 02-01-2022 Insertion of catheter into peripheral vein [facility] Start: 02-01-2022 Measuring intake and output [facility] Start: 02-01-2022 Notification of physician [facility] Start: 02-01-2022 Oxygen therapy [facility] Start: 02-01-2022 Providing care according to standard [facility] Start: 02-01-2022 Provision of activity privileges [facility] Start: 02-01-2022 Referral to service [facility] Start: 02-01-2022 Vital signs measurements [facility] Start: 02-01-2022 [facility] Start: 02-01-2022 Following clinical pathway protocol [facility] Start: 02-01-2022 Verification routine [facility] Work Phone: Start: 02-01-2022 Admission procedure [facility] Start: 02-01-2022 Blood chemistry [facility] Work Phone: Start: 02-01-2022 Lipase measurement [facility] Work Phone: Start: 02-01-2022 End: 02-01-2022 [facility] Work Phone: Start: 02-01-2022 [facility] Start: 11-14-2021 Patient discharge [facility] Work Phone: Start: 11-11-2021 Assessment of risk of venous thromboembolism [facility] Work Phone: Start: 11-11-2021 Care regimes management [facility] Work Phone: Start: 11-11-2021 Insertion of catheter into peripheral vein [facility] Work Phone: Start: 11-11-2021 Introduction of urinary catheter [facility] Work Phone: Start: 11-11-2021 Measuring intake and output [facility] Work Phone: Start: 11-11-2021 Notification of physician [facility] Work Phone: Start: 11-11-2021 Providing care according to standard [facility] Work Phone: Start: 11-11-2021 Provision of activity privileges [facility] Work Phone: Start: 11-11-2021 Referral to service [facility] Work Phone: Start: 11-11-2021 Vital signs measurements [facility] Work Phone: Start: 11-11-2021 [facility] Work Phone: Start: 11-11-2021 Following clinical pathway protocol [facility] Work Phone: Start: 11-11-2021 Admission procedure [facility] Work Phone: Start: 11-11-2021 Patient referral to dietitian [facility] Work Phone: Start: 11-08-2021 Patient discharge [facility] Work Phone: Start: 11-06-2021 [facility] Work Phone: Start: 11-05-2021 Referral to service [facility] Work Phone: Start: 11-05-2021 Patient referral to dietitian [facility] Work Phone: Start: 11-05-2021 Ambulation without limitation [facility] Work Phone: Start: 11-05-2021 Assessment of risk of venous thromboembolism [facility] Work Phone: Start: 11-05-2021 Care regimes management [facility] Work Phone: Start: 11-05-2021 Insertion of catheter into peripheral vein [facility] Work Phone: Start: 11-05-2021 Notification of physician [facility] Work Phone: Start: 11-05-2021 Providing care according to standard [facility] Work Phone: Start: 11-05-2021 [facility] Work Phone: Start: 11-05-2021 Verification routine [facility] Work Phone: Start: 11-05-2021 Admission procedure [facility] Work Phone: Start: 11-05-2021 End: 11-05-2021 Following clinical pathway protocol [facility] Work Phone: Start: 11-05-2021 Patient discharge [facility] Work Phone: Start: 10-06-2021 Suicide precautions [facility] Work Phone: Start: 10-09-2018 Influenza vaccination INFLUENZA VACCINE (#1) [facility] Start: 03-23-2017 Diabetic foot examination Diabetic Foot Exam [facility] Start: 06-07-2016 Hemoglobin A1c measurement HbA1C [facility] Start: 2012 Colonoscopy COLON CANCER SCREENING DISCUSSION [facility] Start: 2012 Prostate specific antigen measurement PROSTATE CANCER SCREENING DISCUSSION [facility] Start: 2012 Shingrix Vaccine (1 of 2) Shingrix Vaccine (1 of 2) [facility] Start: 2012 Zoster vaccine hzv live for subcutaneous use ZOSTER (SHINGLES) VACCINE (1 of 2) [facility] Start: 07-30-2007 Screening for malignant neoplasm of colon [facility] Start: 2002 Fasting lipid profile LIPID SCREENING [facility] Start: 1981 Hepatitis A Vaccine (1 of 2 - Risk 2-dose series) Hepatitis A Vaccine (1 of 2 - Risk 2-dose series) [facility] Start: 1981 Pneumococcal Vaccine: 50+ (1 of 2 - PCV) Pneumococcal Vaccine: 50+ (1 of 2 - PCV) [facility] Start: 1981 Third diphtheria, tetanus and acellular pertussis (DTaP) vaccination TDAP (ADULT) [facility] Start: 1981 Urine microalbumin profile DTaP,Tdap,Td Vaccine (1 - Tdap) [facility] Start: 1980 Anxiety Screening Anxiety Screening [facility] Start: 1980 BP Controlled (<130/80) BP Controlled (<130/80) [facility] Start: 1980 Tetanus vaccination TETANUS [facility] Start: 07-30-1975 HIV screening HIV SCREENING DISCUSSION [facility] Start: 1972 Glaucoma screening Dilated Retinal Exam [facility] Start: 1972 Hepatitis B screening Urine Albumin:Creatinine Ratio [facility] Start: 1968 Pneumococcal vaccination Pneumococcal Vaccine (1 of 2 - PCV) [facility] Start: 1962 Hepatitis C antibody, confirmatory test HEPATITIS C VIRUS [facility] Alanine aminotransfe rase [Enzymatic activity/volume] in Serum or Plasma [facility] Alanine aminotransfe rase [Enzymatic activity/volume] in Serum or Plasma [facility] Alanine aminotransfe rase [Enzymatic activity/volume] in Serum or Plasma [facility] Albumin [Mass/volume ] in Serum or Plasma [facility] Albumin [Mass/volume ] in Serum or Plasma [facility] Albumin [Mass/volume ] in Serum or Plasma [facility] Albumin [Moles/volum e] in Serum or Plasma [facility] Albumin/Globulin ratio [facility] Alkaline phosphatase [Enzymatic activity/volume] in Serum or Plasma [facility] Alkaline phosphatase [Enzymatic activity/volume] in Serum or Plasma [facility] Alkaline phosphatase [Enzymatic activity/volume] in Serum or Plasma [facility] Amphetamine [Mass/volume] in Urine [facility] Amphetamine [Mass/volume] in Urine [facility] Amphetamine [Mass/volume] in Urine [facility] Amphetamines [Presen ce] in Urine by Screen method >1000 ng/mL [facility] Anion gap in Serum o r Plasma [facility] Anion gap measurement [facility] Anion gap measurement [facility] Anion gap measurement [facility] Aspartate aminotransferase [Enzymatic activity/volume] in Serum or Plasma [facility] Aspartate aminotransferase [Enzymatic activity/volume] in Serum or Plasma [facility] Aspartate aminotransferase [Enzymatic activity/volume] in Serum or Plasma [facility] Bacteria identified in Unspecified specimen by Anaerobe culture [facility] Basic metabolic 2008 panel with ionized calcium - Serum or Plasma [facility] Benzodiazepine measurement, urine [facility] Benzodiazepine measurement, urine [facility] Benzodiazepine measurement, urine [facility] Benzodiazepine measurement, urine [facility] Bilirubin, total measurement [facility] Bilirubin, total measurement [facility] Bilirubin, total measurement [facility] Bilirubin.direct [Mass/volume] in Serum or Plasma [facility] BUN/Creatinine ratio [facility] BUN/Creatinine ratio [facility] BUN/Creatinine ratio [facility] BUN/Creatinine ratio [facility] Calcium [Mass/volume ] in Serum or Plasma [facility] Calcium [Mass/volume ] in Serum or Plasma [facility] Calcium [Mass/volume ] in Serum or Plasma [facility] Calcium [Mass/volume ] in Serum or Plasma [facility] Carbon dioxide, tota l [Moles/volume] in Central venous blood [facility] Carbon dioxide, tota l [Moles/volume] in Serum or Plasma [facility] Carbon dioxide, tota l [Moles/volume] in Serum or Plasma [facility] Carbon dioxide, tota l [Moles/volume] in Serum or Plasma [facility] Chloride [Moles/volu me] in Serum or Plasma [facility] Chloride [Moles/volu me] in Serum or Plasma [facility] Chloride [Moles/volu me] in Serum or Plasma [facility] Clostridioides diffi cile DNA [Presence] in Unspecified specimen by GENEVA with probe detection [facility] Clostridioides diffi cile toxin genes [Presence] in Stool by GENEVA with probe detection C. DIFFICILE PCR Lab Routine Chronic diarrhea Ordered: 08/09/2023 [facility] Comment on above: Ordered: 08/09/2023 Cocaine measurement, urine [facility] Cocaine measurement, urine [facility] Cocaine measurement, urine [facility] Cocaine measurement, urine [facility] Creatinine [Mass/vol ume] in Serum or Plasma [facility] Creatinine [Moles/volume] in Serum or Plasma [facility] Creatinine [Moles/volume] in Serum or Plasma [facility] Creatinine [Moles/volume] in Serum or Plasma [facility] End: 11-12-2024 CT Abdomen and Pelvis WO contrast CT ABD/PEL WO IVCON Radiology Routine Generalized abdominal pain Diarrhea of presumed infectious origin Weight loss Alcohol-induced chronic pancreatitis (HCC) 1 Occurrences starting 10/14/2023 until 11/12/2024 [facility] Work Phone: Comment on above: 1 Occurrences starting 10/14/2023 until 11/12/2024 End: 01-05-2025 CT Pancreas W contrast IV CT PANCREAS W IVCON Radiology Routine Diarrhea, unspecified type Acute pancreatitis, unspecified complication status, unspecified pancreatitis type 1 Occurrences starting 12/07/2023 until 01/05/2025 [facility] Work Phone: Comment on above: 1 Occurrences starting 12/07/2023 until 01/05/2025 CT Pancreas W contra st IV CT PANCREAS W IVCON Radiology Routine Diarrhea, unspecified type Acute pancreatitis, unspecified complication status, unspecified pancreatitis type 12/08/2023 11:00 AM EDT [facility] Work Phone: Cytology report of B francisco fluid Cyto stain [facility] End: 12-23-2024 EGD DIAGNOSTIC EGD DIAGNOSTIC Endoscopy Routine Anemia, unspecified type Weight loss Chronic pancreatitis, unspecified pancreatitis type (HCC) Epigastric pain 1 Occurrences starting 12/24/2023 until 12/23/2024 [facility] Comment on above: 1 Occurrences starting 12/24/2023 until 12/23/2024 Electrophoresis: [id number] [facility] Electrophoresis: eleuterio ma globulin [facility] Erythrocyte mean corpuscular volume determination [facility] Erythrocyte mean corpuscular volume determination [facility] Erythrocyte mean corpuscular volume determination [facility] Ethanol [Mass/volume ] in Serum or Plasma [facility] fentaNYL [Presence] in Urine by Screen method [facility] End: 12-23-2024 Flexible sigmoidoscopy study COLONOSCOPY DIAGNOSTIC Endoscopy Routine Anemia, unspecified type Weight loss 1 Occurrences starting 12/24/2023 until 12/23/2024 [facility] Work Phone: Comment on above: 1 Occurrences starting 12/24/2023 until 12/23/2024 Giardia lamblia+Cryptosporidium sp Ag [Presence] in Stool by Immunoassay CRYPTOSPORIDIUM AND GIARDIA ANTIGENS BY EIA Microbiology Routine Chronic diarrhea Ordered: 08/09/2023 [facility] Comment on above: Ordered: 08/09/2023 Gliadin peptide IgA Ab [Units/volume] in Serum [facility] Gliadin peptide IgG Ab [Units/volume] in Serum [facility] Globulin measurement [facility] Glucose [Mass/volume ] in Serum or Plasma [facility] Glucose [Mass/volume ] in Serum or Plasma [facility] Glucose [Mass/volume ] in Serum or Plasma [facility] Glucose [Mass/volume ] in Serum or Plasma [facility] Hematocrit [Volume Fraction] of Blood [facility] Hematocrit [Volume Fraction] of Blood [facility] Hematocrit [Volume Fraction] of Blood [facility] Hemoglobin [Mass/vol ume] in Blood [facility] Hemoglobin [Mass/vol ume] in Blood [facility] Hemoglobin [Mass/vol ume] in Blood [facility] Hemoglobin A1c/Hemoglobin.total in Blood [facility] Hemoglobin.gastroint gurwinder nal.lower [Presence] in Stool by Immunoassay IMMUNOCHEMICAL FECAL OCCULT BLOOD TEST Lab Routine Anemia, unspecified type Ordered: 08/11/2023 [facility] Work Phone: Comment on above: Ordered: 08/11/2023 Hemoglobin.gastroint gurwinder nal.lower [Presence] in Stool by Immunoassay IMMUNOCHEMICAL FECAL OCCULT BLOOD TEST Lab Routine Diarrhea of presumed infectious origin Ordered: 09/24/2023 [facility] Comment on above: Ordered: 09/24/2023 Hepatitis A virus Ig M Ab [Presence] in Serum [facility] Hepatitis B core antibody measurement, IgM type [facility] Hepatitis B surface antigen measurement [facility] Hepatitis C antibody measurement [facility] IgA [Mass/volume] in Serum or Plasma [facility] IgG [Mass/volume] in Serum or Plasma [facility] IgM [Mass/volume] in Serum or Plasma [facility] In-vitro immunologic test [facility] Laboratory data interpretation [facility] Lactic acid measurement [facility] [Presenc e] in Stool by Immunoassay [facility] Leukocytes [#/volume ] in Blood [facility] Leukocytes [#/volume ] in Blood [facility] Leukocytes [#/volume ] in Blood [facility] Magnesium [Mass/volu me] in Serum or Plasma [facility] Magnesium measurement [facility] Mean corpuscular hemoglobin concentration determination [facility] Mean corpuscular hemoglobin concentration determination [facility] Mean corpuscular hemoglobin concentration determination [facility] Mean corpuscular hemoglobin determination [facility] Mean corpuscular hemoglobin determination [facility] Mean corpuscular hemoglobin determination [facility] Measurement of 3,4-methylenedioxymetham phetamine in urine [facility] Measurement of 3,4-methylenedioxymetham phetamine in urine [facility] Measurement of 3,4-methylenedioxymetham phetamine in urine [facility] Measurement of immunoglobulin A in serum specimen [facility] Measurement of renal function [facility] Measurement of renal function [facility] Measurement of renal function [facility] Measurement of renal function [facility] Methadone measuremen t, urine [facility] Methadone measuremen t, urine [facility] Methadone measuremen t, urine [facility] Methadone measuremen t, urine [facility] Mycobacterium tuberculosis tuberculin stimulated gamma interferon [Presence] in Blood [facility] Neutrophil count [facility] Neutrophil count [facility] Neutrophil count [facility] Neutrophil cytoplasm ic Ab.classic [Units/volume] in Serum [facility] Neutrophil percent differential count [facility] Neutrophil percent differential count [facility] Neutrophil percent differential count [facility] Nucleic acid assay [facility] Ova and parasites identified in Unspecified specimen by Light microscopy OVA + PARA MICROSCOPIC Microbiology Routine Chronic diarrhea Ordered: 08/09/2023 [facility] Comment on above: Ordered: 08/09/2023 Ova and parasites identified in Unspecified specimen by Light microscopy OVA + PARA MICROSCOPIC Microbiology Routine Diarrhea of presumed infectious origin Ordered: 09/24/2023 [facility] Work Phone: Comment on above: Ordered: 09/24/2023 Ova OR parasites identification [facility] P-ANCA measurement [facility] Patient Education [facility] Work Phone: Patient referral [facility] Work Phone: pH of Urine [facility] pH of Urine [facility] pH of Urine [facility] Phencyclidine [Prese nce] in Urine [facility] Phencyclidine [Prese nce] in Urine [facility] Phencyclidine [Prese nce] in Urine [facility] Phencyclidine [Prese nce] in Urine [facility] Platelets [#/volume] in Blood [facility] Platelets [#/volume] in Blood [facility] Platelets [#/volume] in Blood [facility] Potassium [Moles/vol ume] in Serum or Plasma [facility] Potassium [Moles/vol ume] in Serum or Plasma [facility] Potassium [Moles/vol ume] in Serum or Plasma [facility] Potassium measurement [facility] Protein electrophore sis panel - Serum or Plasma [facility] Red blood cell count [facility] Red blood cell count [facility] Red blood cell count [facility] Red cell distributio n width determination [facility] Red cell distributio n width determination [facility] Red cell distributio n width determination [facility] Serum chloride measurement [facility] Serum inorganic phosphate measurement [facility] Sodium [Moles/volume ] in Serum or Plasma [facility] Sodium [Moles/volume ] in Serum or Plasma [facility] Sodium [Moles/volume ] in Serum or Plasma [facility] Sodium measurement [facility] Tissue Pathology bio psy report [facility] Work Phone: Comment on above: Release Upon Ordering for 1 Occurrences starting 04/05/2024, 1 completed Tissue transglutamin ase IgA Ab [Units/volume] in Serum [facility] Total protein measurement [facility] Total protein measurement [facility] Total protein measurement [facility] UA DIP B/O UA DIP B/O Lab R outine Dysuria Ordered: 08/09/2023 [facility] Work Phone: Comment on above: Ordered: 08/09/2023 Urea nitrogen [Mass/volume] in Serum or Plasma [facility] Urea nitrogen [Mass/volume] in Serum or Plasma [facility] Urea nitrogen [Mass/volume] in Serum or Plasma [facility] Urea nitrogen [Mass/volume] in Serum or Plasma [facility] Urine barbiturate measurement [facility] Urine barbiturate measurement [facility] Urine barbiturate measurement [facility] Urine cannabinoid measurement [facility] Urine cannabinoid measurement [facility] Urine cannabinoid measurement [facility] Urine cannabinoid measurement [facility] Urine immunofixation [facility] Urine opiate measurement [facility] Urine opiate measurement [facility] Urine opiate measurement [facility] Urine opiate measurement [facility] Immunizations Immunization Date Immunization Notes Care Provider Fa [facility] 11-06-2021 influenza, injectabl e, quadrivalent, preservative free [facility] 11-06-2021 influenza, seasonal, injectable VEHICLE MODIFICATION TECHNICIAN-C Andreas Pathak VEHICLE MODIFICATION TECHNICIAN Work Phone: [facility] 11-06-2021 influenza virus vaccine, unspecified formulation Marianna Wagner VEHICLE DISMANTLER.[employer]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 Work Phone: [facility] 01-07-2021 influenza, injectabl e, quadrivalent, contains preservative; 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: [Fluarix PF Quadrivalent ] ANDREAS PATHAK VEHICLE DISMANTLER - [employer]PLUNK D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 [facility] 01-07-2021 influenza, injectabl e, quadrivalent, preservative free VEHICLE MODIFICATION TECHNICIAN-C Andreas Pathak VEHICLE MODIFICATION TECHNICIAN Work Phone: [facility] 02-09-2020 influenza, injectabl e, quadrivalent, preservative free [facility] 02-09-2020 influenza, seasonal, injectable [facility] 12-09-2018 influenza, injectabl e, quadrivalent, preservative free; 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: [Fluarix PF Quadrivalent ] ANDREAS PATHAK VEHICLE DISMANTLER - SPLUNK D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 [facility] 11-10-2017 influenza, injectabl e, quadrivalent, preservative free ANDREAS PATHAK VEHICLE DISMANTLER - SPLUNK D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 [facility] 11-08-2017 influenza virus vaccine, unspecified formulation DR SHILPI BURNS MD [facility] 11-08-2017 influenza, injectabl e, quadrivalent, preservative free VEHICLE MODIFICATION TECHNICIAN-C Andreas Pathak VEHICLE MODIFICATION TECHNICIAN Work Phone: [facility] 10-12-2017 influenza, injectabl e, quadrivalent, preservative free [facility] 10-12-2017 influenza, seasonal, injectable [facility] 12-09-2016 influenza virus vaccine, unspecified formulation DR SHILPI BURNS MD [facility] 12-09-2016 Seasonal, quadrivalent, recombinant, injectable influenza vaccine, preservative free VEHICLE MODIFICATION TECHNICIAN-C Andreas Pathak VEHICLE MODIFICATION TECHNICIAN Work Phone: [facility] 11-29-2016 influenza virus vaccine, unspecified formulation DR SHILPI BURNS MD [facility] 11-29-2016 influenza, injectabl e, quadrivalent, preservative free [facility] 11-29-2016 influenza, seasonal, injectable [facility] 11-29-2016 Seasonal, quadrivalent, recombinant, injectable influenza vaccine, preservative free VEHICLE MODIFICATION TECHNICIAN-C Andreas Pathak VEHICLE MODIFICATION TECHNICIAN Work Phone: [facility] 12-10-2015 influenza virus vaccine, unspecified formulation DR SHILPI BURNS MD [facility] 12-10-2015 Seasonal, quadrivalent, recombinant, injectable influenza vaccine, preservative free VEHICLE MODIFICATION TECHNICIAN-C Andreas Pathak VEHICLE MODIFICATION TECHNICIAN Work Phone: [facility] 10-23-2014 influenza virus vaccine, unspecified formulation DR SHILPI BURNS MD [facility] 10-23-2014 Seasonal, quadrivalent, recombinant, injectable influenza vaccine, preservative free VEHICLE MODIFICATION TECHNICIAN-C Andreas Pathak NP Work Phone: [facility] Payers Date Payer Category Payer Self-pay [id number] 2023 Medicaid [id number] 2022 Unknown [id number] 2022 Medicaid [id number] 2022 Unknown [id number] 2022 Medicaid [id number] 2018 Unknown MULTIPLAN MULTIP SAMY xxxxxxxxx 2018-Present [id number] [id number] 2016 Unknown [id number] 1962 Unknown [id number] 2.16.840.1.226673.3.579.2. 1962 Unknown [id number] 2.16.840.1.960011.3.579.2. 1962 Unknown [id number] 2.16.840.1.084049.3.579.2. 1962 Unknown [id number] 2.16.840.1.281243.3.579.2.7 1962 Unknown [id number] 2.16.840.1.506679.3.579.2.7 1962 Unknown [id number] 2.16.840.1.447494.3.579.2.627 1962 Unknown [id number] 2.16.840.1.474138.3.579.2.627 1962 Unknown [id number] 2.16.840.1.763334.3.579.2.627 1962 Unknown [id number] 2.16.840.1.888981.3.579.2.627 1962 Unknown [id number] 2.16.840.1.932240.3.579.2.627 1962 Unknown [id number] 2.16.840.1.601388.3.579.2.627 1962 Unknown [id number] 2.16.840.1.610744.3.579.2.627 1962 Unknown [id number] 2.16.840.1.029355.3.579.2.627 1962 Unknown [id number] 2.16.840.1.256789.3.579.2.627 1962 Unknown [id number] 2.16.840.1.393229.3.579.2.278 1962 Unknown [id number] 2.16.840.1.346669.3.579.2.278 1962 Unknown [id number] 2.16.840.1.016394.3.579.2.278 1962 Unknown [id number] 2.16.840.1.945452.3.579.2.278 1962 Unknown [id number] 2.16.840.1.617118.3.579.2.278 Unknown [id number] 2.16.840.1.908611.3.579.2.462 Unknown [id number] 2.16.840.1.398181.3.579.2.462 Unknown [id number] 2.16.840.1.735054.3.579.2.462 Unknown [id number] 2.16.840.1.329667.3.579.2.462 Unknown [id number] 2.16.840.1.634672.3.579.2.462 Unknown [id number] 2.16.840.1.410570.3.579.2.462 Unknown [id number] 2.16.840.1.039804.3.579.2.462 Unknown [id number] 2.16.840.1.624298.3.579.2.462 Unknown [id number] 2.16.840.1.234405.3.579.2.462 Unknown [id number] 2.16.840.1.723980.3.579.2.462 Unknown [id number] 2.16.840.1.510995.3.579.2.462 Unknown [id number] 2.16.840.1.183102.3.579.2.462 Unknown [id number] 2.16.840.1.603665.3.579.2.462 Unknown [id number] 2.16.840.1.659900.3.579.2.462 Unknown [id number] 2.16.840.1.795436.3.579.2.462 Unknown [id number] 2.16.840.1.699668.3.579.2.462 Unknown [id number] 2.16.840.1.614185.3.579.2.462 Unknown [id number] 2.16.840.1.587272.3.579.2.462 Unknown [id number] 2.16.840.1.653136.3.579.2.462 Unknown [id number] 2.16.840.1.783222.3.579.2.462 Unknown [id number] 2.16.840.1.022431.3.579.2.462 Unknown [id number] 2.16.840.1.523632.3.579.2.462 Unknown [id number] 2.16.840.1.686748.3.579.2.462 Unknown [id number] 2.16.840.1.197146.3.579.2.462 Unknown [id number] 2.16.840.1.489027.3.579.2.462 Unknown [id number] 2.16.840.1.915463.3.579.2.462 Unknown [id number] 2.16.840.1.298218.3.579.2.462 Unknown [id number] 2.16.840.1.786124.3.579.2.462 Unknown [id number] 2.16.840.1.554176.3.579.2.462 Unknown [id number] 2.16.840.1.032878.3.579.2.462 Unknown [id number] 2.16.840.1.294720.3.579.2.462 Unknown [id number] 2.16.840.1.512495.3.579.2.462 Unknown [id number] 2.16.840.1.864691.3.579.2.462 Unknown [id number] 2.16.840.1.820970.3.579.2.462 Unknown [id number] 2.16.840.1.506361.3.579.2.462 Unknown [id number] 2.16.840.1.625055.3.579.2.462 Unknown [id number] 2.16.840.1.109478.3.579.2.462 Social History Date [facility] Start: 1960 Sex Assigned At Not on file [facility] Start: 09-06-2018 End: 03-29-2023 Heavy tobacco smoker (finding) [facility] Comment on above: No smoke exposure Start: 1960 Sex Assigned At Male [facility] Start: 05-04-2021 End: 05-11-2023 Tobacco smoking status [facility] Unknown if ever smoked [facility] Start: 09-08-2019 Heavy [facility] Start: 09-08-2019 None [facility] Start: 06-07-2018 Alone [facility] Start: 05-11-2020 Cigarettes [facility] Start: 08-09-2023 End: 11-15-2023 Tobacco smoking status NHIS Smokes tobacco daily [facility] Start: 02-08-2023 End: 03-09-2016 History of tobacco use Cigarette Smoker [facility] Start: 08-09-2023 End: 04-12-2024 Cigarettes smoked current (pack per day) - Reported 0.5 [facility] Start: 08-09-2023 End: 11-15-2023 Tobacco use and exposure Smokeless tobacco non-user [facility] Start: 08-09-2023 End: 04-12-2024 Alcohol intake Current drinker of alcohol (finding) [facility] Start: 08-09-2023 End: 04-12-2024 Tobacco use panel [facility] Adult Depression Screening Assessment 0 [facility] Start: 10-14-2023 [facility] Start: 11-15-2023 Tobacco Comment Pt smoked 1 pa ck daily for x 40 years, pt has cut back to 1 pack per week x 1 year [facility] Sexual Orientation Eliasrita royalnichelle [facility] Start: 11-24-2018 Sex Male (finding) [facility] Medical Equipment Procedure Code Equipment Code Equipment Original Text Equipment Identifier Dates Blood Glucose Te st Strips Start: 04-04-[address]ps Start: 04-04-[address] Strips Start: 05-02-2021 Lancets Start: 05-02-2021 See Instructions , One Touch Ultra Blue Testi Strips 1 bottle of 100 Use 1 strip to test BS TID, # 100 EA, 11 Refill(s), Pharmacy: [facility], 180.3, cm, 02/14/21 8:43:00 EST, Height, 73.3, kg, 02/14/21 8:43:00 EST, Dosing Weight Start: 04-04-2021 See Instructions , 1 bottle of 100- PATIENT TESTS 2-3 TIMES PER DAY, # 1 EA, 11 Refill(s), Pharmacy: [facility], 176.5, cm, 05/02/21 11:34:00 EDT, Height, 73.2, kg, 05/02/21 13:04:00 EDT, Dosing Weight Start: 05-02-2021 See Instructions , qs 1 month supply-PATIENT TESTS 2-3 TIMES PER DAY, # 1 EA, 11 Refill(s), Pharmacy: [facility] 074, 176.5, cm, 05/02/21 11:34:00 EDT, Height, 73.2, kg, 05/02/21 13:04:00 EDT, Dosing Weight Start: 05-02-2021 ONE TOUCH ULTRA BLUE TEST STRP, See Instructions, USE 1 STRIP THREE TIMES A DAY TO TEST BLOOD SUGAR, # 100 strip, 11 Refill(s), Pharmacy: [facility] [id number], 180.3, cm, 04/13/19 10:19:00 EST, Height, 81.7, kg, 04/13/19 10:03:00 EST, Dosing Weight Start: 05-08-2019 ONE TOUCH ULTRA BLUE TEST STRP, See Instructions, USE 1 STRIP THREE TIMES A DAY TO TEST BLOOD SUGAR, # 100 strip, 11 Refill(s), 180.3, cm, 04/13/19 10:19:00 EST, Height, 81.7, kg, 04/13/19 10:03:00 EST, Dosing Weight Start: 05-25-2019 See Instructions , One Touch Ultra Blue Testi Strips 1 bottle of 100 Use 1 strip to test BS TID, # 100 EA, 11 Refill(s), Pharmacy: [facility] 074, 180.3, cm, 02/14/21 8:43:00 EST, Height, 73.3, kg, 02/14/21 8:43:00 EST, Dosing Weight Start: 04-04-2021 See Instructions , 1 bottle of 100- PATIENT TESTS 2-3 TIMES PER DAY, # 1 EA, 0 Refill(s), Pharmacy: [facility], 176.5, cm, 12/23/21 10:15:00 EST, Height, 68.2, kg, 12/23/21 10:15:00 EST, Dosing Weight Start: 04-09-2022 See Instructions , qs 1 month supply-PATIENT TESTS 2-3 TIMES PER DAY, # 1 EA, 0 Refill(s), Pharmacy: [facility], 176.5, cm, 12/23/21 10:15:00 EST, Height, 68.2, kg, 12/23/21 10:15:00 EST, Dosing Weight Start: 04-09-2022 ONE TOUCH ULTRA BLUE TEST STRP, See Instructions, USE 1 STRIP THREE TIMES A DAY TO TEST BLOOD SUGAR, # 100 strip, 11 Refill(s), Pharmacy: [facility] [id number], 180.3, cm, 04/13/19 10:19:00 EST, Height, 81.7, kg, 04/13/19 10:03:00 EST, Dosing Weight Start: 05-08-2019 ONE TOUCH ULTRA BLUE TEST STRP, See Instructions, USE 1 STRIP THREE TIMES A DAY TO TEST BLOOD SUGAR, # 100 strip, 11 Refill(s), 180.3, cm, 04/13/19 10:19:00 EST, Height, 81.7, kg, 04/13/19 10:03:00 EST, Dosing Weight Start: 05-25-2019 See Instructions , One Touch Ultra Blue Testi Strips 1 bottle of 100 Use 1 strip to test BS TID, # 100 EA, 11 Refill(s), Pharmacy: [facility] 074, 180.3, cm, 02/14/21 8:43:00 EST, Height, 73.3, kg, 02/14/21 8:43:00 EST, Dosing Weight Start: 04-04-2021 See Instructions , 1 bottle of 100- PATIENT TESTS 2-3 TIMES PER DAY, # 1 EA, 0 Refill(s), Pharmacy: [facility], 176.5, cm, 12/23/21 10:15:00 EST, Height, 68.2, kg, 12/23/21 10:15:00 EST, Dosing Weight Start: 04-09-2022 See Instructions , qs 1 month supply-PATIENT TESTS 2-3 TIMES PER DAY, # 1 EA, 0 Refill(s), Pharmacy: [facility], 176.5, cm, 12/23/21 10:15:00 EST, Height, 68.2, kg, 12/23/21 10:15:00 EST, Dosing Weight Start: 04-09-2022 ONE TOUCH ULTRA BLUE TEST STRP, See Instructions, USE 1 STRIP THREE TIMES A DAY TO TEST BLOOD SUGAR, # 100 strip, 11 Refill(s), Pharmacy: [facility] [id number], 180.3, cm, 04/13/19 10:19:00 EST, Height, 81.7, kg, 04/13/19 10:03:00 EST, Dosing Weight Start: 05-08-2019 ONE TOUCH ULTRA BLUE TEST STRP, See Instructions, USE 1 STRIP THREE TIMES A DAY TO TEST BLOOD SUGAR, # 100 strip, 11 Refill(s), 180.3, cm, 04/13/19 10:19:00 EST, Height, 81.7, kg, 04/13/19 10:03:00 EST, Dosing Weight Start: 05-25-2019 See Instructions , One Touch Ultra Blue Testi Strips 1 bottle of 100 Use 1 strip to test BS TID, # 100 EA, 11 Refill(s), Pharmacy: [facility] 074, 180.3, cm, 02/14/21 8:43:00 EST, Height, 73.3, kg, 02/14/21 8:43:00 EST, Dosing Weight Start: 04-04-2021 See Instructions , 1 bottle of 100- PATIENT TESTS 2-3 TIMES PER DAY, # 1 EA, 0 Refill(s), Pharmacy: [facility], 176.5, cm, 12/23/21 10:15:00 EST, Height, 68.2, kg, 12/23/21 10:15:00 EST, Dosing Weight Start: 04-09-2022 See Instructions , qs 1 month supply-PATIENT TESTS 2-3 TIMES PER DAY, # 1 EA, 0 Refill(s), Pharmacy: [facility], 176.5, cm, 12/23/21 10:15:00 EST, Height, 68.2, kg, 12/23/21 10:15:00 EST, Dosing Weight Start: 04-09-2022 ONE TOUCH ULTRA BLUE TEST STRP, See Instructions, USE 1 STRIP THREE TIMES A DAY TO TEST BLOOD SUGAR, # 100 strip, 11 Refill(s), Pharmacy: [facility] [id number], 180.3, cm, 04/13/19 10:19:00 EST, Height, 81.7, kg, 04/13/19 10:03:00 EST, Dosing Weight Start: 05-08-2019 ONE TOUCH ULTRA BLUE TEST STRP, See Instructions, USE 1 STRIP THREE TIMES A DAY TO TEST BLOOD SUGAR, # 100 strip, 11 Refill(s), 180.3, cm, 04/13/19 10:19:00 EST, Height, 81.7, kg, 04/13/19 10:03:00 EST, Dosing Weight Start: 05-25-2019 See Instructions , One Touch Ultra Blue Testi Strips 1 bottle of 100 Use 1 strip to test BS TID, # 100 EA, 11 Refill(s), Pharmacy: [facility], 180.3, cm, 02/14/21 8:43:00 EST, Height, 73.3, kg, 02/14/21 8:43:00 EST, Dosing Weight Start: 04-04-2021 See Instructions , 1 bottle of 100- PATIENT TESTS 2-3 TIMES PER DAY, # 1 EA, 0 Refill(s), Pharmacy: [facility], 176.5, cm, 12/23/21 10:15:00 EST, Height, 68.2, kg, 12/23/21 10:15:00 EST, Dosing Weight Start: 04-09-2022 See Instructions , qs 1 month supply-PATIENT TESTS 2-3 TIMES PER DAY, # 1 EA, 0 Refill(s), Pharmacy: [facility], 176.5, cm, 12/23/21 10:15:00 EST, Height, 68.2, kg, 12/23/21 10:15:00 EST, Dosing Weight Start: 04-09-2022 ONE TOUCH ULTRA BLUE TEST STRP, See Instructions, USE 1 STRIP THREE TIMES A DAY TO TEST BLOOD SUGAR, # 100 strip, 11 Refill(s), Pharmacy: [facility] [id number], 180.3, cm, 04/13/19 10:19:00 EST, Height, 81.7, kg, 04/13/19 10:03:00 EST, Dosing Weight Start: 05-08-2019 ONE TOUCH ULTRA BLUE TEST STRP, See Instructions, USE 1 STRIP THREE TIMES A DAY TO TEST BLOOD SUGAR, # 100 strip, 11 Refill(s), 180.3, cm, 04/13/19 10:19:00 EST, Height, 81.7, kg, 04/13/19 10:03:00 EST, Dosing Weight Start: 05-25-2019 See Instructions , One Touch Ultra Blue Testi Strips 1 bottle of 100 Use 1 strip to test BS TID, # 100 EA, 11 Refill(s), Pharmacy: [facility] 074, 180.3, cm, 02/14/21 8:43:00 EST, Height, 73.3, kg, 02/14/21 8:43:00 EST, Dosing Weight Start: 04-04-2021 See Instructions , 1 bottle of 100- PATIENT TESTS 2-3 TIMES PER DAY, # 1 EA, 0 Refill(s), Pharmacy: [facility], 176.5, cm, 12/23/21 10:15:00 EST, Height, 68.2, kg, 12/23/21 10:15:00 EST, Dosing Weight Start: 04-09-2022 See Instructions , qs 1 month supply-PATIENT TESTS 2-3 TIMES PER DAY, # 1 EA, 0 Refill(s), Pharmacy: [facility], 176.5, cm, 12/23/21 10:15:00 EST, Height, 68.2, kg, 12/23/21 10:15:00 EST, Dosing Weight Start: 04-09-2022 ONE TOUCH ULTRA BLUE TEST STRP, See Instructions, USE 1 STRIP THREE TIMES A DAY TO TEST BLOOD SUGAR, # 100 strip, 11 Refill(s), Pharmacy: [facility] [address], 180.3, cm, 04/13/19 10:19:00 EST, Height, 81.7, kg, 04/13/19 10:03:00 EST, Dosing Weight Start: 05-08-2019 ONE TOUCH ULTRA BLUE TEST STRP, See Instructions, USE 1 STRIP THREE TIMES A DAY TO TEST BLOOD SUGAR, # 100 strip, 11 Refill(s), 180.3, cm, 04/13/19 10:19:00 EST, Height, 81.7, kg, 04/13/19 10:03:00 EST, Dosing Weight Start: 05-25-2019 See Instructions , One Touch Ultra Blue Testi Strips 1 bottle of 100 Use 1 strip to test BS TID, # 100 EA, 11 Refill(s), Pharmacy: [facility] 074, 180.3, cm, 02/14/21 8:43:00 EST, Height, 73.3, kg, 02/14/21 8:43:00 EST, Dosing Weight Start: 04-04-2021 See Instructions , 1 bottle of 100- PATIENT TESTS 2-3 TIMES PER DAY, # 1 EA, 0 Refill(s), Pharmacy: [facility], 176.5, cm, 12/23/21 10:15:00 EST, Height, 68.2, kg, 12/23/21 10:15:00 EST, Dosing Weight Start: 04-09-2022 See Instructions , qs 1 month supply-PATIENT TESTS 2-3 TIMES PER DAY, # 1 EA, 0 Refill(s), Pharmacy: [facility], 176.5, cm, 12/23/21 10:15:00 EST, Height, 68.2, kg, 12/23/21 10:15:00 EST, Dosing Weight Start: 04-09-2022 See Instructions , One Touch Ultra Blue Testi Strips 1 bottle of 100 Use 1 strip to test BS TID, # 100 EA, 11 Refill(s), Pharmacy: [facility], 180.3, cm, 02/14/21 8:43:00 EST, Height, 73.3, kg, 02/14/21 8:43:00 EST, Dosing Weight Start: 04-04-2021 See Instructions , 1 bottle of 100- PATIENT TESTS 2-3 TIMES PER DAY, # 1 EA, 0 Refill(s), Pharmacy: [facility], 176.5, cm, 12/23/21 10:15:00 EST, Height, 68.2, kg, 12/23/21 10:15:00 EST, Dosing Weight Start: 04-09-2022 See Instructions , qs 1 month supply-PATIENT TESTS 2-3 TIMES PER DAY, # 1 EA, 0 Refill(s), Pharmacy: [facility], 176.5, cm, 12/23/21 10:15:00 EST, Height, 68.2, kg, 12/23/21 10:15:00 EST, Dosing Weight Start: 04-09-2022 Graft Gelweave 2 8mm Straight Gelatin Polyester Woven 30cm Cardiovascular - [id number] Start: 03-19-2016 Graft Gelweave V alsalva Vascutek 36mm 28mm Gelatin Woven 15cm 28mm - [id number] Start: 03-19-2016 [place] Thk1.65mm P tfe 4x.5in Cardiovascular Sterile - [id number] Start: 03-19-2016 Graft Gelweave 8 mm Straight Gelatin Polyester Woven 30cm Cardiovascular - [id number] Start: 03-19-2016 Patch Thk.2-.4mm Bovine Pericardium Encap 14x9cm Cardiovascular Soft - [id number] Start: 03-19-2016 Valve Aort 23mm Crp-Ed Thfx - [id number] Start: 03-19-2016 [id number] Start: 03-28-2016 End: 11-26-2023 See Instructions , One Touch Ultra Blue Testi Strips 1 bottle of 100 Use 1 strip to test BS TID, # 100 EA, 11 Refill(s), Pharmacy: [place] [id number], 180.3, cm, 02/14/21 8:43:00 EST, Height, 73.3, kg, 02/14/21 8:43:00 EST, Dosing Weight Start: 04-04-2021 See Instructions , 1 bottle of 100- PATIENT TESTS 2-3 TIMES PER DAY, # 1 EA, 0 Refill(s), Pharmacy: [facility], 176.5, cm, 12/23/21 10:15:00 EST, Height, 68.2, kg, 12/23/21 10:15:00 EST, Dosing Weight Start: 04-09-2022 See Instructions , qs 1 month supply-PATIENT TESTS 2-3 TIMES PER DAY, # 1 EA, 0 Refill(s), Pharmacy: [facility], 176.5, cm, 12/23/21 10:15:00 EST, Height, 68.2, kg, 12/23/21 10:15:00 EST, Dosing Weight Start: 04-09-2022 1 Each three wilbur es a day. [id number] Start: 11-26-2023 End: 02-21-2024 USE ONE 3 TIMES DAILY [id number] Sta rt: 02-21-2024 See Instructions , One Touch Ultra Blue Testi Strips 1 bottle of 100 Use 1 strip to test BS TID, # 100 EA, 11 Refill(s), Pharmacy: [facility], 180.3, cm, 02/14/21 8:43:00 EST, Height, 73.3, kg, 02/14/21 8:43:00 EST, Dosing Weight Start: 04-04-2021 See Instructions , 1 bottle of 100- PATIENT TESTS 2-3 TIMES PER DAY, # 1 EA, 0 Refill(s), Pharmacy: [facility], 176.5, cm, 12/23/21 10:15:00 EST, Height, 68.2, kg, 12/23/21 10:15:00 EST, Dosing Weight Start: 04-09-2022 See Instructions , qs 1 month supply-PATIENT TESTS 2-3 TIMES PER DAY, # 1 EA, 0 Refill(s), Pharmacy: [facility], 176.5, cm, 12/23/21 10:15:00 EST, Height, 68.2, kg, 12/23/21 10:15:00 EST, Dosing Weight Start: 04-09-2022 USE 3 TIMES DAILY [id number] Start: 05-31-2024 Goals Date Patient Goal Desired Activity /State Functional Status Date Assessment Result Facility 08-03-2024 Functional status Ambulates [facility] Work Phone: 07-14-2024 Functional status Ambulates;Up ad haleigh [facility] Work Phone: 07-06-2024 Functional status Ambulates [facility] Work Phone: 05-21-2025 Functional status Ambulates;Bath room Privilege [facility] Work Phone: 10-30-2023 Functional Status Independent Elias [facility] 10-30-2023 Functional Status Standard Safet y ID band on, Call device within reach, Bed in low position, Wheels locked, Upper/Half-Length side-rails up, personal items within reach, Bedside Cart Locked, Visitor at bedside [facility] 05-20-2023 Functional status Ambulates [facility] Work Phone: 04-27-2023 Functional status Chair [facility] Work Phone: 03-19-2023 Functional Status Room check performed [facility] 03-19-2023 Functional Status 100 Elias [facility] 03-19-2023 Functional Status Elias [facility] 03-19-2023 Functional Status 3am-7am [facility] 03-19-2023 Functional Status [facility] 03-19-2023 [facility] 03-18-[facility] Functional Status Elias [facility] 03-18-2023 Functional Status Dinner Percent 75 [facility] 03-18-2023 Functional Status Activity Yu tance One assist [facility] 03-18-2023 Functional Status Elias [facility] 03-18-2023 Functional Status Morning Snack Percent 1 00 [facility] 03-18-2023 Functional Status 4 [facility] 03-18-2023 Functional Status [facility] 03-18-2023 Functional Status [facility] 03-18-2023 Functional Status [facility] 03-18-2023 Functional Status [facility] 03-17-2023 Functional Status bilateral knee high removed/off [facility] 03-17-2023 Functional Status 100 [facility] 03-17-2023 Functional Status Done [facility] 03-17-2023 Functional Status [facility] 03-16-2023 Functional Status [facility] 03-16-2023 Functional Status [facility] 03-16-2023 Functional Status [facility] 03-16-2023 Functional Status Mobile home [facility] 03-15-2023 Functional Status [facility] 10-05-2022 Functional Status ID band on, Call device within reach, Bed in low position, Wheels locked, Upper/Half-Length side-rails up [facility] 05-13-2022 Functional Status Independent [facility] 03-24-2022 Functional status Ambulates [facility] Work Phone: 02-04-2022 Functional status Ambulates [facility] Work Phone: 11-14-2021 Functional status Up ad haleigh [facility] Work Phone: 11-08-2021 Functional status Ambulates [facility] Work Phone: 11-08-2021 Functional status None [facility] Work Phone: 06-01-2021 Functional status Up ad haleigh [facility] Work Phone: 05-05-2021 Functional status Chair [facility] Work Phone: 03-28-2016 Are you deaf, or do you have serious difficulty hearing No 03/28/2016 4:20 PM Ynes WillisRn)(Hist), RN No [facility] 03-28-2016 Are you blind, or do you have serious difficulty seeing, even when wearing glasses No 03/28/2016 4:20 PM Ynes WillisRn)(Hist), RN No [facility] 03-28-2016 Do you have serious difficulty walking or climbing stairs No 03/28/2016 4:20 PM Ynes WillisRn)(Hist), RN No [facility] 03-28-2016 Do you have difficul ty dressing or bathing No 03/28/2016 4:20 PM Ynes WillisRn)(Hist), RN No [facility] 03-28-2016 Because of a physica l, mental, or emotional condition, do you have difficulty doing errands alone such as visiting a physician's office or shopping No 03/28/2016 4:20 PM EST Ynes Ramirez (Rn)(Hist), RN No [facility] Mental Status Date Assessment Result Facility 08-03-2024 Cognitive function Voice/Name [facility] Work Phone: 07-14-2024 Cognitive function Voice/Name [facility] Work Phone: 07-06-2024 Cognitive function Voice/Name [facility] Work Phone: 06-28-2024 Cognitive function Voice/Name [facility] Work Phone: 10-30-2023 Mental Status Orientation Oriented x 4 [facility] 10-30-2023 Mental Status [facility] 05-20-2023 Cognitive function Voice/Name [facility] Work Phone: 04-27-2023 Cognitive function Voice/Name [facility] Work Phone: 03-19-2023 Mental Status Oriented x 4 [facility] 03-19-2023 Mental Status [facility] 03-18-2023 Mental Status [facility] 03-18-2023 Mental Status [facility] 10-05-2022 Mental Status Orientation Oriented x 4 [facility] 07-20-2022 Cognitive function Level Of Cons ciousness Awake;Alert;Follows Commands [facility] Work Phone: 05-13-2022 Mental Status Orientation Oriented x 4 [facility] 05-13-2022 Mental Status [facility] 03-24-2022 Cognitive function Appropriate [facility] Work Phone: 02-04-2022 Cognitive function Voice/Name [facility] Work Phone: 02-01-2022 Cognitive function Level Of Cons ciousness Awake;Alert;Appropriate;Fol lows Commands [facility] Work Phone: 11-13-2021 Cognitive function Voice/Name [facility] Work Phone: 11-08-2021 Cognitive function Voice/Name [facility] Work Phone: 09-30-2021 Cognitive function Level Of Cons ciousness Awake;Alert;Appropriate;Fol lows Commands [facility] Work Phone: 06-01-2021 Cognitive function Voice/Name [facility] Work Phone: 05-04-2021 Cognitive function Voice/Name [facility] Work Phone: 05-04-2021 Cognitive function Level Of Cons ciousness Awake;Alert;Appropriate [facility] Work Phone: 03-28-2016 Because of a physica l, mental, or emotional condition, do you have serious difficulty concentrating, remembering, or making decisions No 03/28/2016 4:20 PM Ynes Willis (Rn)(Hist), RN No [facility] Clinical Notes 05-02-2021 to 08-14-2024 Telephone Encounter - Suzi Haynes MA - 08/14/2024 11:56 AM EDTTelephone Encounter - Suzi Haynes MA - 08/14/2024 11:56 AM EDTTelephone Encounter - Suzi Haynes MA - 08/04/2024 8:12 AM EDT Note Date & Type Note Facility 08-14-2024 Telephone encounter Note Form atting of this note might be different from the original. Patient transferred out of [facility]. Suzi Haynes MA [facility] 08-14-2024 Miscellaneous Notes Formattin g of this note might be different from the original. Patient transferred out of [facility]. Suzi Haynes MA documented in this encounter [facility] 08-04-2024 Telephone encounter Note Form atting of this note might be different from the original. [facility] 08-04-2024 Miscellaneous Notes Formattin g of this note might be different from the original. documented in this encounter [facility] 08-03-2024 Discharge summary Note Date/Time August 03, 2024 12:16pm [facility] Medical Records Department [address] [place] [address] Discharge Summary 08/03/24 1206 MR#: [id number] Acct: [id number] Name: ANALILIA MELENDREZ Rep #:[id number] : 1960 64 From: Valeriy Connell DO PCP: Sigrid Call DO Status:ADM IN Location: [place] [address] Providers Date of Admission: 08/01/24 Primary Care Physician: LETICIA Cook DO Consultations 08/02/24 07:59 Consult: Vascular Surgery Routine Consulting Provider: Valeriy Ross Reason for Consult: aortic arch abnormality EMERGENT Consult: No MD Notified: Yes Date Notified: 08/02/24 Time Notified: 09:48 Method of Notification: Text to Suyapa Reason For Visit: HYPOXIA, HFrEF EXACERBATION Diagnosis Discharge Diagnosis (1) Acute HFrEF (heart failure with reduced ejection fraction): Status: Acute Code(s): I50.21 - Acute systolic (congestive) heart failure Plan: pulmonary vascular congestion and pleural effusions, increased from 07/11. EF 35-40%. Complicated by severe . on IV furosemide. on spironolactone and metoprolol succinate, dapagliflozin patient was short of breath and yesterday which I feel is probably multifactorial due to his pleural effusions but also he may have had an ileus/small bowel obstruction that is since resolved. Will dc w furosemide (2) Elevated troponin: Status: Resolved Code(s): R79.89 - Other specified abnormal findings of blood chemistry Plan: 2/2 CHF exacerbation. Suspect type II event. Plan Aortic arch linear hypodensity: DW Dr. Ross, who reviewed the images and feelsthat much of this may be more postsurgical related with his aortic valve repair and nothing imminent to require transfer at this point. Though he did recommendpatient follow-up with his cardiothoracic surgeon. Pancreatic insufficiency: creon. Follow up with GI as outpt. VTE prophylaxis: LMWH. Medications at Discharge Home Medications atorvastatin 10 mg tablet 10 mg PO DAILY CHOLESTEROL 10/17/20 dapagliflozin propanediol 10 mg tablet (Farxiga) 10 mg PO DAILY DIABETES 09/30/21 multivitamin 1 tab PO DAILY SUPPLEMENT 11/11/21 gabapentin 300 mg capsule 300 mg PO DAILY NEUROPATHY 11/14/22 metformin 500 mg tablet,extended release 24 hr 500 mg PO DAILY DIABETES 11/15/22 folic acid 1 mg tablet 1 mg PO DAILY@0800 supplement #0 tabs 05/20/23 thiamine HCl (vitamin B1) 100 mg tablet (Vitamin B-1) 100 mg PO DAILYCM vitamin #0 tabs 05/20/23 pantoprazole 40 mg tablet,delayed release 40 mg PO BID reflux #60 tabs 06/27/23 iarusz-gcogbckd-hcwzjyp 24,000-76,000-120,000 unit capsule,delayed rel (Creon) 1cap PO TIDCM #90 caps 06/28/24 ferrous sulfate 325 mg (65 mg iron) tablet (FeroSul) 325 mg PO DAILY supplement 06/30/24 metoprolol succinate 25 mg tablet,extended release 24 hr 12.5 mg (1/2 x 25 mg) PO DAILY 30 days #15 tabs 07/06/24 spironolactone 25 mg tablet 25 mg PO DAILY 30 days #30 tabs 07/06/24 L.acidophil,salivari-Bifido bifidum-Strep thermoph 175 mg capsule 1 cap PO BID Probiotic 08/01/24 furosemide 20 mg tablet 40 mg (2 x 20 mg) PO DAILY 30 days #60 tabs 08/03/24 sacubitril 24 mg-valsartan 26 mg tablet (Entresto) 1 tab PO BID #60 tabs 08/03/24 Hospital Course Operations None Procedures None Summary of Care Provided Minutes Spent on Discharge: 32 Hospital Course: Patient presents with shortness of breath and abdominal distention. Abdominal sentient resolved spontaneously and breathing got better. Did have CAT scan showed bilateral pleural effusions. Patient was started on furosemide and overall did better. It was noted on his CAT scan that there was some linear density in his aortic arch concerning for dissection. Patient was seen by vascular surgery and felt that these are chronic changes related with his prior aortic valve replacement and not anything urgent. Patient was also asymptomaticand not having any chest pain. It was recommended that the patient follow-up with his cardiothoracic surgeon. Patient states that that was performed about 20 years ago so he has not followed up in the interim. Do recommend that he do follow-up with [facility]. Do recommend that he follow-up with cardiologyand they can facilitate an outpatient follow-up with CT surgery. In regards to patient shortness of breath I feel the pleural effusions were concerning but with his abdominal distention and recent hospitalizations with ileus/small bowelobstruction I think that he likely had a an ileus or small bowel obstruction that pushed up on his diaphragm and with his pleural effusion is causing him to be short of breath. Patient has not required oxygen bruno here. Patient will bedischarged home Weight / BMI Weight Weight: 67 kg Body Mass Index (BMI) 20.6 ABG / Lab / Microbiology Data 08/03/24 06:06 08/03/24 06:06 Laboratory: Laboratory Results - last 24 hr 08/02/24 13:58: POC Glucose 120 H 08/02/24 22:50: POC Glucose 208 H 08/03/24 06:06: WBC 4.2 L, RBC 2.65 L, Hgb 9.3 L, Hct 29.3 L, MCV 110.6 H, MCH 35.1 H, MCHC 31.7 L, RDW Std Deviation 58.9 H, RDW Coeff of Kalpana 14.4, Plt Count 147 L, MPV 11.4, Immature Gran % (Auto) 0.200, Neut % (Auto) 64.5, Lymph % (Auto) 21.3, Erath % (Auto) 10.6 H, Eos % (Auto) 2.2, Baso % (Auto) 1.2 H, Absolute Neuts (auto) 2.7, Absolute Lymphs (auto) 0.89, Nucleated RBC % 0, Sodium 139, Potassium 4.4, Chloride 107, Carbon Dioxide 23.3, Anion Gap 8, BUN 14, Creatinine 1.38 H, Estim Creat Clear Calc 52.60, Est GFR (MDRD) Non-Af 58 L,BUN/Creatinine Ratio 10.4, Glucose 151 H, Calcium 8.0 08/03/24 06:53: POC Glucose 144 H 08/03/24 11:27: POC Glucose 304 H D/C Instructions Discharge Diet: - (1.5 liters (50 ounces, 6.5 cups) fluid per day. ) DC O2, CPAP, BIPAP Needs Home O2 Discharge instructions: No Meaningful Use Info Meaningful Use Meaningful Use Diagnoses (Choose all that apply): CHF CHF ANKIT/ARB ordered at discharge?: Yes Documented LVEF (%): 35 Ischemic Stroke Statin Dosing Therapy Reference: STATIN DOSE THERAPY REFERENCE: * Patients > 75 years receive moderate or high dose statin therapy. * Patients 75 years or YOUNGER should receive HIGH intensity statin dose unless contraindicated. You will be required to document reason for non-treatment if statin daily dose does not meet guidelines. HIGH DOSE STATIN THERAPY DAILY Atorvastatin > than or = to 40 mg Rosuvastatin > than or = to 20 mg Amlodipine + Atorvastatin > than or = to 2.5/40 mg Ezetimibe + Simvastatin 10/80 mg Simvastatin 80mg Discharge Plan Admission Admit Date/Time: 08/01/24 20:44 Primary Reason for Your Visit: CHF exacerbation Attending Provider: Valeriy Connell Primary Care Provider: Sigrid Call [facility] Consulting Providers: Iman Aguayo; Valeriy Ross Instructions Additional Instructions / Restrictions: Please follow-up with cardiology. They can facilitate a follow-up appointment with cardiothoracic surgery. Discharge Orders/Prescriptions Prescriptions: New Entresto 24-26 mg tablet 1 tab PO BID Qty: 60 0RF Continued atorvastatin 10 mg tablet 10 mg PO DAILY dapagliflozin propanediol [Farxiga] 10 mg Tablet 10 mg PO DAILY multivitamin Tablet 1 tab PO DAILY gabapentin 300 mg Capsule 300 mg PO DAILY metformin 500 mg tablet extended release 24 hr 500 mg PO DAILY Patient Comments: PT STATES THEY TAKE THIS ONCE DAILY. pantoprazole 40 mg tablet,delayed release (DR/EC) 40 mg PO BID Qty: 60 0RF Creon 24,000-76,000 -120,000 unit Capsule,Delayed Release(Dr/Ec) 1 cap PO TIDCM Qty: 90 1RF thiamine HCl (vitamin B1) [Vitamin B-1] 100 mg Tablet 100 mg PO DAILYCM Qty: 0 0RF folic acid 1 mg Tablet 1 mg PO DAILY@0800 Qty: 0 0RF ferrous sulfate [FeroSul] 325 mg (65 mg iron) tablet 325 mg PO DAILY metoprolol succinate 25 mg Tablet Extended Release 24 Hr 12.5 mg PO DAILY 30 Days Qty: 15 2RF spironolactone 25 mg Tablet 25 mg PO DAILY 30 Days Qty: 30 2RF L.acidoph,saliva-B.bif-S.therm 175 mg Capsule 1 cap PO BID Changed furosemide 20 mg Tablet 40 mg PO DAILY 30 Days Qty: 60 2RF Referrals / Follow Up: [facility] [Provider Group] - Within 1 Month [facility] [Provider Group] - Within 1 Month Sigrid Call DO [Primary Care Provider] - Within 2 Weeks Disposition Disposition (needs filled in before D/C Order can be placed): Home, Self Care Charges/Coding Visit Charges Inpatient E&M: 04955 Disch Hosp >30min 08/03/24 1216 <Electronically signed by Valeriy Connell DO> Cosigner Signature (if applicable): CC: Dr. Valeriy Connell DO; Sigrid Call DO~ Signed [facility] Work Phone: [phone] 715-747906-26-2025 Progress note Author Valeriy Connell [facility] Note Date/Time August 03, 2024 12:0 6pm [facility] Medical Records Department [address] [place] [id number] Progress Note - Hospitalist 08/03/24 0742 MR#: [id number] Acct: [id number] Name: ANALILIA MELENDREZ Rep #:[id number] : 1960 64 From: Valeriy Connell DO PCP: Sigrid Call DO Status:ADM IN Location: [place] [address] 1 Reason for Visit Reason for Visit: Diagnoses Acute systolic (congestive) heart failure (08/01/24) Hypoxemia (08/01/24) Other specified abnormal findings of blood chemistry (08/01/24) Personal history of other diseases of the circulatory system (08/01/24) Presence of prosthetic heart valve (08/01/24) Other specified postprocedural states (08/01/24) Subjective Subjective Feeling well. No abdominal pain. Objective Data Objective Data Vital Signs: Vital Signs Temp Pulse Resp BP Pulse Ox O2 Del Method O2 Flow Rate 36.5 C L 82 16 98/72 94 Room Air 2 08/03/24 03:15 08/03/24 03:15 08/03/24 03:15 08/03/24 03:15 08/03/24 03:15 08/03/24 03:15 08/01/24 20:30 Oxygen Flow Rate (L/min) 2 Oxygen Delivery Method Room Air Weight: 67 kg Body Mass Index (BMI) 20.6 Intake & Output: Intake and Output for Last 24 Hours 08/01/24 08/02/24 08/03/24 23:59 23:59 23:59 Intake Total 700 / 700 Output Total 900 / 1650 750 / 750 Balance -200 / -950 -750 / -750 Lab / Micro Data 08/03/24 06:06 08/03/24 06:06 Labs: Laboratory Results - last 24 hr 08/02/24 10:53: POC Glucose 271 H 08/02/24 13:58: POC Glucose 120 H 08/02/24 22:50: POC Glucose 208 H 08/03/24 06:06: WBC 4.2 L, RBC 2.65 L, Hgb 9.3 L, Hct 29.3 L, MCV 110.6 H, MCH 35.1 H, MCHC 31.7 L, RDW Std Deviation 58.9 H, RDW Coeff of Kalpana 14.4, Plt Count 147 L, MPV 11.4, Immature Gran % (Auto) 0.200, Neut % (Auto) 64.5, Lymph % (Auto) 21.3, Erath % (Auto) 10.6 H, Eos % (Auto) 2.2, Baso % (Auto) 1.2 H, Absolute Neuts (auto) 2.7, Absolute Lymphs (auto) 0.89, Nucleated RBC % 0, Sodium 139, Potassium 4.4, Chloride 107, Carbon Dioxide 23.3, Anion Gap 8, BUN 14, Creatinine 1.38 H, Estim Creat Clear Calc 52.60, Est GFR (MDRD) Non-Af 58 L,BUN/Creatinine Ratio 10.4, Glucose 151 H, Calcium 8.0 08/03/24 06:53: POC Glucose 144 H Rhythm Strip Rhythm Strip: Sinus Rhythm Rate: 90 Ectopy: PAC(s) Physical Exam Const alert and no apparent distress HEENT head/scalp atraumatic and moist oral mucous membranes Resp normal respiratory effort and no retractions Cardio regular rate, regular rhythm, S1 normal heart sound and S2 normal heart sound GI normal to inspection, nondistended, normoactive bowel sounds, soft to palpation,non-tender and non-distended Assessment & Plan Assessment/Plan (1) Acute HFrEF (heart failure with reduced ejection fraction): PLAN: pulmonary vascular congestion and pleural effusions, increased from /3. EF 35-40%. Complicated by severe . on IV furosemide. on spironolactone and metoprolol succinate, dapagliflozin patient was short of breath and yesterday which I feel is probably multifactorial due to his pleural effusions but also he may have had an ileus/small bowel obstruction that is since resolved. Will dc w furosemide (2) Elevated troponin: PLAN: 2/2 CHF exacerbation. Suspect type II event. PLAN: Plan Aortic arch linear hypodensity: DW Dr. Ross, who reviewed the images and feelsthat much of this may be more postsurgical related with his aortic valve repair and nothing imminent to require transfer at this point. Though he did recommendpatient follow-up with his cardiothoracic surgeon. Pancreatic insufficiency: creon. Follow up with GI as outpt. VTE prophylaxis: LMWH. 08/03/24 1206 <Electronically signed by Valeriy Connell DO> Cosigner Signature (if applicable): CC: ~ Signed [facility] Work Phone: [phone]) 740-649806-26-2025 Progress note Author Iman Aguayo [facility] Note Date/Time August 03, 2024 6:40 am [facility] Medical Records Department [address] [place] [address] Progress Note - Hospitalist 08/03/24 0639 MR#: [id number] Acct: [id number] Name: DARRINDARNELLANALILIAHERMANN KAUFFMAN Rep #:[id number] : 1960 64 From: Iman Aguayo MD PCP: Sigrid Call DO Status:ADM IN Location: [place] [address] Hospitalist Note PCP contacted hospital to discuss patient as they are having difficulties setting up follow-up with specialists as he is constantly being admitted and hasnot had follow-up for some time. She is requesting if able to add referral at discharge for gastroenterology and cardiology if possible. 08/03/24 0640 <Electronically signed by Iman Aguayo MD> Cosigner Signature (if applicable): CC: ~ Signed [facility] Work Phone: [phone]) 981-354106-25-2025 Consult note Author Suyapa Bustos [facility] Note Date/Time August 02, 2024 6:19 pm [facility] Medical Records Department [address] [place] [address] Consultation - Surgical 08/02/24 1712 MR#: [id number] Acct: [id number] Name: ANALILIA MELENDREZ Rep #:[id number] : 1960 64 From: Suyapa BALDERAS PCP: Sigrid Call DO Status:ADM IN Location: [place] [address] Assessment & Plan Assessment/Plan (1) H/O aortic valve replacement: (2) History of aortic aneurysm repair: PLAN: Plan CTA images were reviewed by Dr. Ross; demonstrate prior aortic aneurysm repairat the site of concern, changes appear consistent with postoperative changes rather than acute dissection. Reviewed ER physician note who documented discussion with [facility] CT surgery who compared CTA Chest here this admission with CTA Chest from 2017 and felt it was stable and consistent with postsurgical changes as well. No indication for transfer or intervention at this time. Would advise he re-establish with [facility] CT for ongoing surveillance. HPI Consult Data Date of Consult: 08/02/24 HPI Narrative HPI Narrative: ANALILIA MELENDREZ, is a 64 M who presented to [facility] ER on 08/01/24 increased edema and SOB and was admitted with CHF exacerbation. As part of his workup, he had CTA Chest which was negative for PE but which demonstrated tiny linear hypodensity at the aortic arch, possibly artifactual related to motion or blood flow, though dissection could appear similar for which we are consulted. He reports that he had a prior aortic arch aneurysm repair when he was around 42years old; he reports this aneurysm was felt to be congenital at the time. He subsequently then had mechanical aortic valve replacement which he reports failed a year later and so he then had bioprosthetic aortic valve replacement around 2016 at [facility]. He denies any chest pain today. He reports his SOB is much better, he is overall feeling much better than yesterday. [facility] Medical History Malnutrition Pancytopenia Medically noncompliant Thrombocytopenia Chronic pancreatitis Macrocytosis associated with alcohol Ascites due to alcoholic cirrhosis Chronic diarrhea Chronic alcohol abuse Abdominal ascites MALIK (acute kidney injury) Seizures Alcoholic hepatitis Chronic pancreatitis Gastric wall thickening Alcohol dependence Anxiety Diabetes Pancreatitis Myocardial infarct Pacemaker AAA (abdominal aortic aneurysm) Admitted to alcohol detoxification center Alcohol abuse Hx of hypercholesterolemia History of diabetes mellitus Alcohol dependence Substance abuse Smoker Alcoholism Right bundle branch block (RBBB) Non-sustained ventricular tachycardia Thoracic aortic aneurysm SVT (supraventricular tachycardia) Ascending aortic dissection (~2005) Pure hypercholesterolemia Adrenal nodule Hiatal hernia Left carotid bruit Cardiac pacemaker in situ (~06/2016) Essential hypertension Pacemaker Sick sinus syndrome Tobacco use HTN (hypertension) Diabetes mellitus, type II Home Medications ?Medication ?Instructions ?Recorded ?Last Taken ?Type atorvastatin 10 mg tablet 10 mg PO DAILY CHOLESTEROL 0 10/17/20 07/31/24 History dapagliflozin propanediol 10 mg 10 mg PO DAILY DIABETE S 09/30/21 07/31/24 History tablet (Farxiga) multivitamin 1 tab PO DAILY SUPPLEMENT 07/31/24 History gabapentin 300 mg capsule 300 mg PO DAILY NEUROPATHY 1 07/31/24 History metformin 500 mg tablet,extended 500 mg PO DAILY DIABE KELLY 11/15/22 07/31/24 History release 24 hr folic acid 1 mg tablet 1 mg PO DAILY@0800 supplemen t #0 05/20/23 07/31/24 Rx tabs thiamine HCl (vitamin B1) 100 mg 100 mg PO DAILYCM vit padilla #0 tabs 05/20/23 07/31/24 Rx tablet (Vitamin B-1) pantoprazole 40 mg tablet,delayed 40 mg PO BID reflux #60 tabs 06/27/23 07/31/24 Rx release ecrcgw-ajldktso-xgebyjr 1 cap PO TIDCM #90 caps 06/0907/31/24 Rx 24,000-76,000-120,000 unit capsule,delayed rel (Creon) ferrous sulfate 325 mg (65 mg 325 mg PO DAILY suppleme nt 06/30/24 07/31/24 History iron) tablet (FeroSul) furosemide 20 mg tablet 20 mg PO DAILY 30 days #30 t abs 07/06/24 07/31/24 Rx metoprolol succinate 25 mg 12.5 mg (1/2 x 25 mg) PO DA RASHEED 30 07/06/24 07/31/24 Rx tablet,extended release 24 hr days #15 tabs spironolactone 25 mg tablet 25 mg PO DAILY 30 days #30 tabs 07/06/24 07/31/24 Rx L.acidophil,salivari-Bifido 1 cap PO BID Probiotic 07/31/24 History bifidum-Strep thermoph 175 mg capsule Allergy/AdvReac Type Severity Reaction Status Date / Time No Known Allergies Allergy Verified 08/01/24 22:20 Family History Father CAD (coronary artery disease) Mother Dementia Surgical History (Updated 08/02/24 @ 17:21 by ANDREY Chanel) History of aortic aneurysm repair (~2016) H/O cardiac catheterization History of cataract surgery History of hernia repair History of aortic valve replacement with bioprosthetic valve (~2016) H/O aortic valve replacement Social History household members: family housing: house Smoking Status: Current every day smoker tobacco type: cigarettes alcohol intake: current alcohol intake frequency: 0-2 drinks per day details: Reports currently ~ 2 tall boys daily. substance use type: former substance user caffeine: Yes Type: coffee Number of servings: 3 Physical Exam Const alert, oriented x3 and no apparent distress General Appearance: cooperative and comfortable HEENT normocephalic, head/scalp atraumatic, hearing grossly normal bilaterally, external ears normal and external nose normal Eyes General Eye: normal appearance of both eyes Neck General: normal visual inspection Resp normal respiratory effort Effort and Inspection: able to speak in complete sentences; Negative for labored, grunting or stridor Cardio Rate: regular rate Rhythm: regular rhythm Skin no rashes or lesions noted Trauma: no lacerations or abrasions Neuro oriented x3, moves all extremities, no focal motor deficits and no sensory deficits noted Speech: speech normal Psych mental status grossly normal Appearance: grossly normal Attitude: calm and engaged Activity / Motor Behavior: appropriate eye contact Speech: normal speech Lab / Micro Data 08/02/24 03:13 08/02/24 03:13 Labs: Laboratory Results - last 24 hr 08/01/24 15:20: Phosphorus 2.8, Magnesium 2.2 08/01/24 22:29: POC Glucose 229 H 08/01/24 23:06: Troponin T High Sens 96 H* 08/02/24 01:40: Troponin T Hi Sens 2 Hr 106 H*, TSH 2.140 08/02/24 03:13: WBC 5.0, RBC 2.67 L, Hgb 9.7 L, Hct 29.4 L, MCV 110.1 H, MCH 36.3 H, MCHC 33.0, RDW Std Deviation 59.0 H, RDW Coeff of Kalpana 14.5, Plt Count 159, MPV 11.5, Immature Gran % (Auto) 0.200, Neut % (Auto) 64.6, Lymph % (Auto) 18.5 L, Erath % (Auto) 12.9 H, Eos % (Auto) 2.0, Baso % (Auto) 1.8 H, Absolute Neuts (auto) 3.2, Absolute Lymphs (auto) 0.93, Nucleated RBC % 0, Sodium 138, Potassium 3.5, Chloride 105, Carbon Dioxide 22.3, Anion Gap 11, BUN 9, Creatinine 1.09, Estim Creat Clear Calc 61.32, Est GFR (MDRD) Non-Af 77, BUN/Creatinine Ratio 8.5 L, Glucose 123 H, Calcium 8.1, Total Bilirubin 0.31, AST35, ALT 13, Alkaline Phosphatase 101, Troponin T Hi Sens 4Hr 95 H*, Total Protein 5.1 L, Albumin 2.6 L, Globulin 2.6, Albumin/Globulin Ratio 1.0, Triglycerides 132, Cholesterol 100, LDL Cholesterol, Calc 41, VLDL Cholesterol 26, HDL Cholesterol 33 L, Cholesterol/HDL Ratio 3.06 08/02/24 06:52: POC Glucose 126 H 08/02/24 10:53: POC Glucose 271 H 08/02/24 13:58: POC Glucose 120 H Rhythm Strip Rhythm Strip: Sinus Rhythm Rate: 90 Ectopy: PAC(s) Imaging Radiology Impression Abdomen/Pelvis CT 08/01/24 16:40 IMPRESSION: CHEST: 1. No evidence of pulmonary embolism. 2. Tiny linear hypodensity at the aortic arch, possibly artifactual related to motion or blood flow, though dissection could appear similar. Consider Vascular Surgery consultation. Repeat imaging could be performed with ECG gating. Of note, the ascending thoracic aorta measures 4.0 cm in diameter. 3. Rtsnlvva-dy-gnmgn pleural effusions bilaterally, slightly increased comparedto CT on 07/11/2024. Bibasilar consolidation may represent compressive atelectasis, though infection could appear similar. ABDOMEN AND PELVIS: 1. Mucosal hyperenhancement with mild wall thickening involving the stomach through jejunum, as may be seen with gastroenteritis, which could be of infectious, inflammatory, or ischemic etiology. 2. Hepatic steatosis. Reading Location: [facility] Chest CTA 08/01/24 16:40 IMPRESSION: CHEST: 1. No evidence of pulmonary embolism. 2. Tiny linear hypodensity at the aortic arch, possibly artifactual related to motion or blood flow, though dissection could appear similar. Consider Vascular Surgery consultation. Repeat imaging could be performed with ECG gating. Of note, the ascending thoracic aorta measures 4.0 cm in diameter. 3. Mmjjsxvq-wc-kdwrh pleural effusions bilaterally, slightly increased comparedto CT on 07/11/2024. Bibasilar consolidation may represent compressive atelectasis, though infection could appear similar. ABDOMEN AND PELVIS: 1. Mucosal hyperenhancement with mild wall thickening involving the stomach through jejunum, as may be seen with gastroenteritis, which could be of infectious, inflammatory, or ischemic etiology. 2. Hepatic steatosis. Reading Location: [facility] Charges/Coding Visit Charges Inpatient E&M: 78990 Init Hosp L1 08/02/24 1725 <Electronically signed by Suyapa BALDERAS> Cosigner Signature (if applicable): 08/02/24 1819 <Electronically signed by Valeriy Ross MD> CC: Sigrid Call DO~ Signed [facility] Work Phone: [phone]) 404-448406-25-2025 Progress note Author Valeriy Connell [facility] Note Date/Time August 02, 2024 3:00 pm [facility] Medical Records Department [address] [place] [address] [place] [address] Progress Note - Hospitalist 08/02/24 0744 MR#: [id number] Acct: [id number] Name: ANALILIA MELENDREZ Rep #:[id number] : 1960 64 From: Valeriy Connell DO PCP: Sigrid Call DO Status:ADM IN Location: [place] [address] Reason for Visit Reason for Visit: Diagnoses Acute systolic (congestive) heart failure (08/01/24) Hypoxemia (08/01/24) Subjective Subjective Feeling better. Did have abdominal distention that caused her to be short of breath but doing better now. Objective Data Objective Data Vital Signs: Vital Signs Temp Pulse Resp BP Pulse Ox O2 Del Method O2 Flow Rate 36.8 C 87 16 106/83 H 94 Room Air 2 08/02/24 03:50 08/02/24 03:50 08/02/24 03:50 08/02/24 03:50 08/02/24 03:50 08/02/24 03:50 08/01/24 20:30 Oxygen Flow Rate (L/min) 2 Oxygen Delivery Method Room Air Weight: 62 kg Body Mass Index (BMI) 19.1 Intake & Output: Intake and Output for Last 24 Hours 07/31/24 08/01/24 08/02/24 23:59 23:59 23:59 Output Total 600 / 600 Balance -600 / -600 Lab / Micro Data 08/02/24 03:13 08/02/24 03:13 Labs: Laboratory Results - last 24 hr 08/01/24 15:20: WBC 5.4, RBC 3.08 L, Hgb 11.0 L, Hct 34.0 L, MCV 110.4 H, MCH 35.7 H, MCHC 32.4, RDW Std Deviation 58.4 H, RDW Coeff of Kalpana 14.3, Plt Count 189, MPV 11.9, Immature Gran % (Auto) 0.400, Neut % (Auto) 73.3 H, Lymph % (Auto) 16.1 L, Erath % (Auto) 8.0, Eos % (Auto) 0.9, Baso % (Auto) 1.3 H, Absolute Neuts (auto) 4.0, Absolute Lymphs (auto) 0.87, Nucleated RBC % 0, D-Dimer Quant (PE/DVT) 1.39 H*, Sodium 137, Potassium 3.8, Chloride 103, Carbon Dioxide 18.6 L, Anion Gap 16 H, BUN 9, Creatinine 1.17, Est GFR (MDRD) Non-Af 70, BUN/Creatinine Ratio 7.7 L, Glucose 159 H, Calcium 8.4, Phosphorus 2.8, Magnesium 2.2, Total Bilirubin 0.37, AST 48 H, ALT 20, Alkaline [place]atase 121,[place] [address] H, Total Protein 6.3, Albumin 3.0 L, Globulin 3.3, Albumin/Globulin Ratio 0.9, Lipase 9 L 08/01/24 22:29: POC Glucose 229 H 08/01/24 23:06: Troponin T High Sens 96 H* 08/02/24 01:40: Troponin T Hi Sens 2 Hr 106 H*, TSH 2.140 08/02/24 03:13: WBC 5.0, RBC 2.67 L, Hgb 9.7 L, Hct 29.4 L, MCV 110.1 H, MCH 36.3 H, MCHC 33.0, RDW Std Deviation 59.0 H, RDW Coeff of Kalpana 14.5, Plt Count 159, MPV 11.5, Immature Gran % (Auto) 0.200, Neut % (Auto) 64.6, Lymph % (Auto) 18.5 L, Erath % (Auto) 12.9 H, Eos % (Auto) 2.0, Baso % (Auto) 1.8 H, Absolute Neuts (auto) 3.2, Absolute Lymphs (auto) 0.93, Nucleated RBC % 0, Sodium 138, Potassium 3.5, Chloride 105, Carbon Dioxide 22.3, Anion Gap 11, BUN 9, Creatinine 1.09, Estim Creat Clear Calc 61.32, Est GFR (MDRD) Non-Af 77, BUN/Creatinine Ratio 8.5 L, Glucose 123 H, Calcium 8.1, Total Bilirubin 0.31, AST35, ALT 13, Alkaline Phosphatase 101, Troponin T Hi Sens 4Hr 95 H*, Total Protein 5.1 L, Albumin 2.6 L, Globulin 2.6, Albumin/Globulin Ratio 1.0, Triglycerides 132, Cholesterol 100, LDL Cholesterol, Calc 41, VLDL Cholesterol 26, HDL Cholesterol 33 L, Cholesterol/HDL Ratio 3.06 08/02/24 06:52: POC Glucose 126 H Radiography Diagnostic Testing: Radiology Impression Chest X-Ray 08/01/24 15:30 IMPRESSION: Mild bibasilar pleural effusions. Bilateral lower lobe opacities not excluded with residual opacity within the left lower lobe. Reading Location: [id number] Abdomen/Pelvis CT 08/01/24 16:40 IMPRESSION: CHEST: 1. No evidence of pulmonary embolism. 2. Tiny linear hypodensity at the aortic arch, possibly artifactual related to motion or blood flow, though dissection could appear similar. Consider Vascular Surgery consultation. Repeat imaging could be performed with ECG gating. Of note, the ascending thoracic aorta measures 4.0 cm in diameter. 3. Vdkzzxxd-rv-odbyx pleural effusions bilaterally, slightly increased comparedto CT on 07/11/2024. Bibasilar consolidation may represent compressive atelectasis, though infection could appear similar. ABDOMEN AND PELVIS: 1. Mucosal hyperenhancement with mild wall thickening involving the stomach through jejunum, as may be seen with gastroenteritis, which could be of infectious, inflammatory, or ischemic etiology. 2. Hepatic steatosis. Reading Location: [id number] Chest CTA 08/01/24 16:40 IMPRESSION: CHEST: 1. No evidence of pulmonary embolism. 2. Tiny linear hypodensity at the aortic arch, possibly artifactual related to motion or blood flow, though dissection could appear similar. Consider Vascular Surgery consultation. Repeat imaging could be performed with ECG gating. Of note, the ascending thoracic aorta measures 4.0 cm in diameter. 3. Gnouifwn-gx-ymxdw pleural effusions bilaterally, slightly increased comparedto CT on 07/11/2024. Bibasilar consolidation may represent compressive atelectasis, though infection could appear similar. ABDOMEN AND PELVIS: 1. Mucosal hyperenhancement with mild wall thickening involving the stomach through jejunum, as may be seen with gastroenteritis, which could be of infectious, inflammatory, or ischemic etiology. 2. Hepatic steatosis. Reading Location: [id number] Rhythm Strip Rhythm Strip: Sinus Rhythm Rate: 90 Ectopy: PAC(s) Physical Exam Const alert and no apparent distress HEENT head/scalp atraumatic and moist oral mucous membranes Resp normal respiratory effort and no retractions Resp Narrative: Bibasilar crackles Cardio regular rate, regular rhythm, S1 normal heart sound and S2 normal heart sound GI normal to inspection, nondistended, normoactive bowel sounds, soft to palpation,non-tender and non-distended Extremity normal to inspection Neuro Sensorium / Orientation: awake and alert Assessment & Plan Assessment/Plan (1) Acute HFrEF (heart failure with reduced ejection fraction): PLAN: pulmonary vascular congestion and pleural effusions, increased from 07/11. EF 35-40%. Complicated by severe . on IV furosemide. on spironolactone and metoprolol succinate, dapagliflozin patient was short of breath and yesterday which I feel is probably multifactorial due to his pleural effusions but also he may have had an ileus/small bowel obstruction that is since resolved. (2) Elevated troponin: PLAN: / CHF exacerbation. Suspect type II event. PLAN: Plan Aortic arch linear hypodensity: DW Dr. Ross, who reviewed the images and feelsthat much of this may be more postsurgical related with his aortic valve repair and nothing imminent to require transfer at this point. Though he did recommendpatient follow-up with his cardiothoracic surgeon. Pancreatic insufficiency: creon. VTE prophylaxis: LMWH. Greater than 50 minutes of which greater than 50 send time was discussed with the patient, talking about the CAT scan findings. Additionally the dressing with specialist to radiology as well as vascular surgery about the CAT scan. Charges/Coding Visit Charges Inpatient E&M: 79843 Subs Hosp L3 08/02/24 1500 <Electronically signed by Valeriy Connell DO> Cosigner Signature (if applicable): CC: ~ Signed [facility] Work Phone: [phone] History and physical note Author Iman Aguayo [facility] Note Date/Time August 02, 2024 2:41 am [facility] Medical Records Department [address] [place] [address] H&P Exam - Hospitalist 08/01/242043 MR#: [id number] Acct: [id number] Name: DARRINDARNELLANALILIA JAMARI Rep #:[id number] : 1960 64 From: Iman Aguayo MD PCP: Sigrid Call DO Status:ADM IN Location: [facility] [id number] HPI - General General Date of Admission: 08/01/24 Date of Service: 08/01/24 Chief Complaint: Dyspnea, increased edema, weight gain, orthopnea. HPI Narrative The patient is a 64 y/o M w/ PMHx: Chronic macrocytic anemia, Diabetes mellitus type II, Hx sick sinus syndrome s/p pacemaker placement, Hx Ascending aortic dissection s/p repair, Valvular heart disease s/p AVR repairs, HTN, HLD, GERD, History of EtOH abuse with alcoholic liver cirrhosis/hepatomegaly with history of chronic pancreatitis, Remote history fo heroin abuse, Nonobstructive CAD, GERD, Tobacco use who presents to the [facility] ED on 08/02/2024with history of 3 days of significantly worsening dyspnea, lower extremity swelling, orthopnea, weight gain with inability to catch his breath worse with activity with poor oral intake with nausea without emesis with last bowel movement possibly 4 days previous noted to be passing gas but constipated prompting eventual ED evaluation to be cautious. Workup in the ED included T97.8, heart rate 102, BP 117/84, respiratory rate 18, 97% on room air eventually desaturating down to 88% on room air with repeat 96% on 2 L nasal cannula, CBC with WC 5.4, hemoglobin, MCV 110.4, platelet 189 without marked left shift, D-dimer 1.39, CMP with At 18.6, anion gap 16, BUN/creatinine 9/1.17,GFR 70, glucose 159, AST 48, NT proBNP 41,328, lipase 9, chest x-ray with mild basilar pleural effusion, bilateral lower lobe opacities not excluded with residual opacity within the left lower lobe, CT chest/abdomen/pelvis with contrast with no evidence of pulmonary embolism, tiny linear hyperdensity at theaortic arch possibly artifactual related to motion or blood flow though dissection could appear similar, ascending thoracic aorta measuring 4 point centimeter in diameter, moderate to large pleural effusions bilaterally slightlyincreased compared to CT 07/11/2024, bibasilar consolidation possibly representingcompressive atelectasis, mucosal hyperenhancement with mild wall thickening involving the stomach through the jejunum, hepatic steatosis, EKG with sinus rhythm with PAC with right bundle branch block similar to previous. ED physician did discuss case at length with [facility] who reviewed imaging and noted that the small finding was consistent with previous images and not an acute dissection. In the ED also patient had an inflamed sebaceous cyst on the back which was open and drained per ED physician. In the ED patient ministered Tylenol 650 mg p.o. x 1, fentanyl 50 mcg IV x 1, Lasix 20 mg IV x 1, labetalol 10 mg IV x 1. [facility] Medical History Malnutrition Pancytopenia Medically noncompliant Thrombocytopenia Chronic pancreatitis Macrocytosis associated with alcohol Ascites due to alcoholic cirrhosis Chronic diarrhea Chronic alcohol abuse Abdominal ascites MALIK (acute kidney injury) Seizures Alcoholic hepatitis Chronic pancreatitis Gastric wall thickening Alcohol dependence Anxiety Diabetes Pancreatitis Myocardial infarct Pacemaker AAA (abdominal aortic aneurysm) Admitted to alcohol detoxification center Alcohol abuse Hx of hypercholesterolemia History of diabetes mellitus Alcohol dependence Substance abuse Smoker Alcoholism Right bundle branch block (RBBB) Non-sustained ventricular tachycardia Thoracic aortic aneurysm SVT (supraventricular tachycardia) Ascending aortic dissection (~2005) Pure hypercholesterolemia Adrenal nodule Hiatal hernia Left carotid bruit Cardiac pacemaker in situ (~06/2016) Essential hypertension Pacemaker Sick sinus syndrome Tobacco use HTN (hypertension) Diabetes mellitus, type II Home Medications ?Medication ?Instructions ?Recorded ?Last Taken ?Type atorvastatin 10 mg tablet 10 mg PO DAILY CHOLESTEROL 0 10/17/20 07/31/24 History dapagliflozin propanediol 10 mg 10 mg PO DAILY DIABETE S 09/30/21 07/31/24 History tablet (Farxiga) multivitamin 1 tab PO DAILY SUPPLEMENT 07/31/24 History gabapentin 300 mg capsule 300 mg PO DAILY NEUROPATHY 1 07/31/24 History metformin 500 mg tablet,extended 500 mg PO DAILY DIABE KELLY 11/15/22 07/31/24 History release 24 hr folic acid 1 mg tablet 1 mg PO DAILY@0800 supplemen t #0 05/20/23 07/31/24 Rx tabs thiamine HCl (vitamin B1) 100 mg 100 mg PO DAILYCM vit padilla #0 tabs 05/20/23 07/31/24 Rx tablet (Vitamin B-1) pantoprazole 40 mg tablet,delayed 40 mg PO BID reflux #60 tabs 06/27/23 07/31/24 Rx release uniubn-nxxyaqoi-vssbphp 1 cap PO TIDCM #90 caps 06/0907/31/24 Rx 24,000-76,000-120,000 unit capsule,delayed rel (Creon) ferrous sulfate 325 mg (65 mg 325 mg PO DAILY suppleme nt 06/30/24 07/31/24 History iron) tablet (FeroSul) furosemide 20 mg tablet 20 mg PO DAILY 30 days #30 t abs 07/06/24 07/31/24 Rx metoprolol succinate 25 mg 12.5 mg (1/2 x 25 mg) PO DA RASHEED 30 07/06/24 07/31/24 Rx tablet,extended release 24 hr days #15 tabs spironolactone 25 mg tablet 25 mg PO DAILY 30 days #30 tabs 07/06/24 07/31/24 Rx L.acidophil,salivari-Bifido 1 cap PO BID Probiotic 07/31/24 History bifidum-Strep thermoph 175 mg capsule Allergy/AdvReac Type Severity Reaction Status Date / Time No Known Allergies Allergy Verified 08/01/24 22:20 Family History Father CAD (coronary artery disease) Mother Dementia Surgical History H/O cardiac catheterization History of aortic aneurysm repair (~2016) History of cataract surgery History of hernia repair History of aortic valve replacement with bioprosthetic valve (~2016) H/O aortic valve replacement Social History household members: family housing: house Smoking Status: Current every day smoker tobacco type: cigarettes alcohol intake: current alcohol intake frequency: 0-2 drinks per day details: Reports currently ~ 2 tall boys daily. substance use type: former substance user caffeine: Yes Type: coffee Number of servings: 3 ROS ROS Narrative Admission Review of Systems: CONSTITUTIONAL: No weight loss, fever, chills,+ weakness or fatigue. HEENT: Eyes: No visual loss, blurred vision, double vision or yellow sclerae. Ears, Nose, Throat: No hearing loss, sneezing, congestion, runny nose or sore throat. SKIN: No rash or itching, lesions, wounds. CARDIOVASCULAR: + Orthopnea, increased edema, weight gain. No chest pain, chestpressure or chest discomfort, palpitations, syncopal events. RESPIRATORY: + Worsening dyspnea, worse with exertion, nonproductive cough. No wheezing, hemoptysis. GASTROINTESTINAL: + Decreased appetite, nausea without emesis, constipation. Nodiarrhea, abdominal pain, melena, BRBPR. GENITOURINARY: No dysuria, frequency, urgency or retention. NEUROLOGICAL: No headache, dizziness, syncope, paralysis, ataxia, numbness or tingling in the extremities, focal weakness, change in bowel or bladder control,seizure. MUSCULOSKELETAL: + muscle, back pain, joint pain or stiffness. HEMATOLOGIC: + Chronic anemia, easy bleeding/bruising. LYMPHATICS: No enlarged nodes. No history of splenectomy. PSYCHIATRIC: + History of anxiety depression/previous suicidal ideation presentations. ENDOCRINOLOGIC: No reports of sweating, cold or heat intolerance. No polyuria orpolydipsia. ALLERGIES: No history of asthma, hives, eczema or rhinitis. Vital Signs Vital Signs Vital Signs: 08/01/24 12:33 08/01/24 14:20 08/01/24 14:32 Temperature 97.8 F Temperature Source Temporal Pulse Rate 102 H 93 Respiratory Rate 18 22 H Respiratory Effort Short of Breath Respiratory Depth Normal Respiratory Pattern Normal Blood Pressure 117/84 H 146/97 H Blood Pressure Mean 95 113 Pulse Ox 97 93 Oxygen Delivery Method Room Air Room Air Room Air Oxygen Flow Rate (L/min) 08/01/24 16:00 08/01/24 18:51 08/01/24 20:00 Temperature Temperature Source Pulse Rate 97 118 H Respiratory Rate 12 18 Respiratory Effort Respiratory Depth Respiratory Pattern Blood Pressure 146/95 H 147/99 H Blood Pressure Mean 112 115 Pulse Ox 92 95 88 Oxygen Delivery Method Room Air Room Air Room Air Oxygen Flow Rate (L/min) 08/01/24 20:02 08/01/24 20:04 08/01/24 20:11 Temperature Temperature Source Pulse Rate 63 Respiratory Rate Respiratory Effort Respiratory Depth Respiratory Pattern Blood Pressure 143/95 H 123/80 H Blood Pressure Mean 111 94 Pulse Ox 96 Oxygen Delivery Method Nasal Cannula Oxygen Flow Rate (L/min) 2 Weight Weight: 155 lb 13.869 oz Body Mass Index (BMI) 21.7 Physical Exam Narrative Physical Examination: General: Awake, alert, oriented x 3 and cooperative, seated upright in ED bed, fatigued, notes breathing with greater ease since ED arrival Skin: Normal color, normal turgor, no icterus, no cyanosis except occasional stage ecchymoses, abrasion. HEENT: AT/NC, EOMI, PERRLA, MMM, no carotid bruits, + JVD noted. Lungs: Diminished, greater bases, mildly increased respiratory rate but no distress, supplemental nasal cannula in place, mild Rales at the bases, no rhonchi or wheezing. Heart: Regular rate and rhythm; no gallop, rub audible, + SM. Abdomen: Soft, NTTP, ND, hyperactive BS, + HM. Extremities: No cyanosis, no clubbing, pedal to mid rooney 2+ pitting edema. Neurological: Patient awake, alert, oriented as noted, cognitive function intact; pupils equally reactive to light and accommodation, cranial nerves grossnormal, moving all 4 extremities, no focal deficits, strength moderately to severely globally decreased. Psychiatric: Affect appears mildly flat, fatigued, no acute evidence of depressive or anxiety feelings but does have underlying history and previous suicidal ideation presentation. Results Lab / Micro Data 08/01/24 15:20 08/01/24 15:20 Labs: Laboratory Results - last 24 hr 08/01/24 15:20: WBC 5.4, RBC 3.08 L, Hgb 11.0 L, Hct 34.0 L, MCV 110.4 H, MCH 35.7 H, MCHC 32.4, RDW Std Deviation 58.4 H, RDW Coeff of Kalpana 14.3, Plt Count 189, MPV 11.9, Immature Gran % (Auto) 0.400, Neut % (Auto) 73.3 H, Lymph % (Auto) 16.1 L, Erath % (Auto) 8.0, Eos % (Auto) 0.9, Baso % (Auto) 1.3 H, Absolute Neuts (auto) 4.0, Absolute Lymphs (auto) 0.87, Nucleated RBC % 0, D-Dimer Quant (PE/DVT) 1.39 H*, Sodium 137, Potassium 3.8, Chloride 103, Carbon Dioxide 18.6 L, Anion Gap 16 H, BUN 9, Creatinine 1.17, Est GFR (MDRD) Non-Af 70, BUN/Creatinine Ratio 7.7 L, Glucose 159 H, Calcium 8.4, Total Bilirubin 0.37, AST 48 H, ALT 20, Alkaline Phosphatase 121, [place] [address] H, Total Protein 6.3, Albumin 3.0 L, Globulin 3.3, Albumin/Globulin Ratio 0.9, Lipase 9 L Imaging Radiology Impression Chest X-Ray 08/01/24 15:30 IMPRESSION: Mild bibasilar pleural effusions. Bilateral lower lobe opacities not excluded with residual opacity within the left lower lobe. Reading Location: [id number] Abdomen/Pelvis CT 08/01/24 16:40 IMPRESSION: CHEST: 1. No evidence of pulmonary embolism. 2. Tiny linear hypodensity at the aortic arch, possibly artifactual related to motion or blood flow, though dissection could appear similar. Consider Vascular Surgery consultation. Repeat imaging could be performed with ECG gating. Of note, the ascending thoracic aorta measures 4.0 cm in diameter. 3. Rycecaah-er-bwxyu pleural effusions bilaterally, slightly increased comparedto CT on 07/11/2024. Bibasilar consolidation may represent compressive atelectasis, though infection could appear similar. ABDOMEN AND PELVIS: 1. Mucosal hyperenhancement with mild wall thickening involving the stomach through jejunum, as may be seen with gastroenteritis, which could be of infectious, inflammatory, or ischemic etiology. 2. Hepatic steatosis. Reading Location: [id number] Chest CTA 08/01/24 16:40 IMPRESSION: CHEST: 1. No evidence of pulmonary embolism. 2. Tiny linear hypodensity at the aortic arch, possibly artifactual related to motion or blood flow, though dissection could appear similar. Consider Vascular Surgery consultation. Repeat imaging could be performed with ECG gating. Of note, the ascending thoracic aorta measures 4.0 cm in diameter. 3. Inarekaf-hk-ilslr pleural effusions bilaterally, slightly increased comparedto CT on 07/11/2024. Bibasilar consolidation may represent compressive atelectasis, though infection could appear similar. ABDOMEN AND PELVIS: 1. Mucosal hyperenhancement with mild wall thickening involving the stomach through jejunum, as may be seen with gastroenteritis, which could be of infectious, inflammatory, or ischemic etiology. 2. Hepatic steatosis. Reading Location: [id number] Assessment & Plan Assessment/Plan (1) Acute HFrEF (heart failure with reduced ejection fraction): (2) Hypoxia: PLAN: Plan The patient is a 64 y/o M w/ PMHx: Chronic macrocytic anemia, Diabetes mellitus type II, Hx sick sinus syndrome s/p pacemaker placement, Hx Ascending aortic dissection s/p repair, Valvular heart disease s/p AVR repairs, HTN, HLD, GERD, History of EtOH abuse with alcoholic liver cirrhosis/hepatomegaly with history of chronic pancreatitis, Remote history fo heroin abuse, Nonobstructive CAD, GERD, Tobacco use who presents to the [facility] ED on 08/02/2024with history of 3 days of significantly worsening dyspnea, lower extremity swelling, orthopnea, weight gain with inability to catch his breath worse with activity with poor oral intake with nausea without emesis with last bowel movement possibly 4 days previous noted to be passing gas but constipated prompting eventual ED evaluation to be cautious. #1. Acute hypoxia secondary to acutely decompensated HFrEF complicated by underlying significant valvular disease as well as alcoholic liver cirrhosis as noted: Patient administered IV lasix in the ED, will admit to PCU, maintain on cardiac telemetry, obtain cardiac enzyme series, obtain serial EKGs, continue IVlasix diuresis, monitor I/Os, maintain on intake restriction, continue medical therapy, obtain TSH and magnesium level. Most recent ECHO noted 07/01/2024 with EF 35 to 40%, moderate LV systolic dysfunction with global LV hypokinesis, severe concentric LVH, moderate to severe bioprosthetic AV stenosis, SAY area 1.1 cm?, peak AV gradient 60.2 mmHg, mean AV gradient 40.2 mmHg, pacer lead in the RV identified, trivial MR, transmitral Doppler flow revealing impaired relaxation of LV thus will not repeat. Will place neck ankit wraps. If clinicallynot improving low threshold to involve cardiology. #2. EtOH Abuse history with ongoing alcohol consumption: Patient notes he significantly cut back, last oral alcohol intake 1 day previous and notes it wasonly 1 beer and he usually keeps it at a max of 1 beer weekly, encourage strongly complete sobriety, will maintain on MVI, thiamine, folic acid and CIWA protocol to be cautious in case intake amount is not correct. Magnesium and phosphorus levels requested. #3. Nonobstructive CAD: Not on antiplatelet therapy per review of records possibly secondary to thrombocytopenia or previous GI bleed but uncertain, not mentioned in cardiology notes either, will continue statin, metoprolol, not on ANKIT inhibitor/ARB possibly secondary recent MALIK noted in charts. #4. Valvular heart disease: Patient with severe aortic stenosis with history ofbioprosthetic valve and previous mechanical replacement then porcine bioprosthetic replacement, ECHO 07/01/2024 with EF 35 to 40%, moderate LV systolic dysfunction with global LV hypokinesis, severe concentric LVH, moderateto severe bioprosthetic AV stenosis, SAY area 1.1 cm?, peak AV gradient 60.2 mmHg, mean AV gradient 40.2 mmHg, pacer lead in the RV identified, trivial MR, transmitral Doppler flow revealing impaired relaxation of LV. Encouraged continued outpatient reevaluation for aortic valve replacement. #5. Alcoholic liver cirrhosis/hepatomegaly with history of chronic pancreatitis: Given presentation as noted transitioning to IV Lasix, continued on metoprolol and spironolactone, encouraged absolute sobriety, continue Creon regimen, encourage continued follow-up outpatient with gastroenterology as previously arranged. #6. Diabetes mellitus type II with chronic neuropathy: Hold oral home regimen, maintain on ADA diet, accu checks w/ ISS, continue home gabapentin regimen. #7. Chronic macrocytic anemia: Admission hemoglobin 11, MCV 110.4, platelet 189, baseline hemoglobin primarily 7-8, most recently previous to the 07/13/2024 hemoglobin 8.5, continue to trend. #8. Chronic Kidney Disease Stage II per GFR trending: Admission BUN/Cr 10/09.17, GFR 70, baseline renal function primarily 1.1-1.2, repeat BMP in AM. #9. History sick sinus syndrome: Status post pacemaker placement, encourage continued follow-up for interrogation as previously arranged. #10. Known ascending aortic dissection status postrepair: Patient with history of ascending aortic dissection, status postrepair, encourage continued follow- upwith CT surgery/vascular surgery as previously arranged, [facility] reviewed images as noted and findings are stable compared to previously. #11. Hypertension: Continue home regimen including spironolactone, metoprolol, IV Lasix, PRN hydralazine. #12. Hyperlipidemia: Will continue patient on statin therapy, FLP in AM. #13. GERD: Will continue patient on famotidine regimen. #14. History of remote polysubstance abuse: Patient with history of remote polysubstance abuse including heroin, clean for at least 10 years, encourage continued clean status. #15. Tobacco Abuse: Encouraged cessation, inpatient consultation per RT, NR if desired. #16. DVT prophylaxis: Lovenox. Charges/Coding Visit Charges Inpatient E&M: 84025 Init Hosp L3 08/02/24 0241 <Electronically signed by Iman Aguayo MD> Cosigner Signature (if applicable): CC: Dr. Iman Aguayo MD; Sigrid Call DO~ Signed [facility] Work Phone: [phone] Discharge summary Author Tierney [facility] Note Date/Time August 01, 2024 11:0 6pm [facility] Medical Records Department [address] [place] [address] Emergency Department Summary 08/01/24 MR#: [id number] Acct: [id number] Name: ANALILIA MELENDREZ Rep #:[id number] : 1960 64 From: Tierney Rosado PCP: Sigrid Call DO Status:ADM IN Location: [address] History of Present Illness Chief Complaint: Shortness of Breath Informant: patient Narrative Narrative: Patient is a 64-year-old male with history of AV replacement (bovine), HTN, chronic pancreatitis, heart failure with reduced ejection fraction, pleural effusions and prior paracentesis, diabetes mellitus and pacemaker presenting for 3 days of worsening shortness of breath and leg swelling. Patient states that sometimes his belly swells and then he feels like he cannot catch his breath. He notes that he feels that he is not getting enough it is worse when he triesto pound. Denies associate chest pain any fevers. Also notes that he is at increased leg/ankle swelling. In addition he notes that for the past 3 to 4 days he has not had an appetite as had nausea. He states he will go to eat and then just spit it out. He states his last bowel movement was 4 to 5 days ago. He notes he has passed a small amount of gas throughout this time. In addition he has a wound on his right back that has been draining. He saw his primary care doctor today recommend he come to the ER for further evaluation. Patient was hospitalized at beginning this month for small bowel obstruction which ultimately was thought to be an ileus. Last month he reportedly had 2 paracentesis however chart review I only see 1 paracentesis on 06/26/2024 where they took out 2050 cc of straw-colored fluid. Cytology for this was negative for malignancy. GI note from 07/03/2024 for evaluation of ascites?needs a liver biopsy but that to be associated with chronic alcohol use. [facility] Medical History Malnutrition Pancytopenia Medically noncompliant Thrombocytopenia Chronic pancreatitis Macrocytosis associated with alcohol Ascites due to alcoholic cirrhosis Chronic diarrhea Chronic alcohol abuse Abdominal ascites MALIK (acute kidney injury) Seizures Alcoholic hepatitis Chronic pancreatitis Gastric wall thickening Alcohol dependence Anxiety Diabetes Pancreatitis Myocardial infarct Pacemaker AAA (abdominal aortic aneurysm) Admitted to alcohol detoxification center Alcohol abuse Hx of hypercholesterolemia History of diabetes mellitus Alcohol dependence Substance abuse Smoker Alcoholism Right bundle branch block (RBBB) Non-sustained ventricular tachycardia Thoracic aortic aneurysm SVT (supraventricular tachycardia) Ascending aortic dissection (~2005) Pure hypercholesterolemia Adrenal nodule Hiatal hernia Left carotid bruit Cardiac pacemaker in situ (~06/2016) Essential hypertension Pacemaker Sick sinus syndrome Tobacco use HTN (hypertension) Diabetes mellitus, type II Home Medications ?Medication ?Instructions ?Recorded ?Last Taken ?Type atorvastatin 10 mg tablet 10 mg PO DAILY CHOLESTEROL 0 10/17/20 07/31/24 History dapagliflozin propanediol 10 mg 10 mg PO DAILY DIABETE S 09/30/21 07/31/24 History tablet (Farxiga) multivitamin 1 tab PO DAILY SUPPLEMENT 07/31/24 History gabapentin 300 mg capsule 300 mg PO DAILY NEUROPATHY 1 07/31/24 History metformin 500 mg tablet,extended 500 mg PO DAILY DIABE KELLY 11/15/22 07/31/24 History release 24 hr folic acid 1 mg tablet 1 mg PO DAILY@0800 supplemen t #0 05/20/23 07/31/24 Rx tabs thiamine HCl (vitamin B1) 100 mg 100 mg PO DAILYCM vit padilla #0 tabs 04/11/24 06/23/25 Rx tablet (Vitamin B-1) pantoprazole 40 mg tablet,delayed 40 mg PO BID reflux #60 tabs 06/27/23 07/31/24 Rx release eekkhg-dzngyhby-wfsuwgi 1 cap PO TIDCM #90 caps 06/0907/31/24 Rx 24,000-76,000-120,000 unit capsule,delayed rel (Creon) ferrous sulfate 325 mg (65 mg 325 mg PO DAILY suppleme nt 06/30/24 07/31/24 History iron) tablet (FeroSul) furosemide 20 mg tablet 20 mg PO DAILY 30 days #30 t abs 07/06/24 07/31/24 Rx metoprolol succinate 25 mg 12.5 mg (1/2 x 25 mg) PO DA RASHEED 30 07/06/24 07/31/24 Rx tablet,extended release 24 hr days #15 tabs spironolactone 25 mg tablet 25 mg PO DAILY 30 days #30 tabs 07/06/24 07/31/24 Rx L.acidophil,salivari-Bifido 1 cap PO BID Probiotic 07/31/24 History bifidum-Strep thermoph 175 mg capsule Allergy/AdvReac Type Severity Reaction Status Date / Time No Known Allergies Allergy Verified 08/01/24 22:20 Family History Father CAD (coronary artery disease) Mother Dementia Surgical History H/O cardiac catheterization History of aortic aneurysm repair (~2016) History of cataract surgery History of hernia repair History of aortic valve replacement with bioprosthetic valve (~2016) H/O aortic valve replacement Social History household members: family housing: house Smoking Status: Current every day smoker tobacco type: cigarettes alcohol intake: current alcohol intake frequency: 0-2 drinks per day details: Reports currently ~ 2 tall boys daily. substance use type: former substance user caffeine: Yes Type: coffee Number of servings: 3 ROS ROS ED Constitutional Constitutional ED: Denies chills or fever(s) Cardiovascular Cardiovascular: Denies chest pain Respiratory/Chest Respiratory/Chest: Reports dyspnea and dyspnea on exertion; Denies cough or sputum Gastrointestinal Gastrointestinal: Reports constipation, nausea and other Details: Decreased appetite, abdominal distention ; Denies abdominal pain, diarrhea, melena or vomiting Musculoskeletal Musculoskeletal: Denies arthralgias or myalgias Integumentary Reports abscess Neurologic Neurologic: Reports weakness Hematologic/Lymphatic Hematologic/Lymphatic: Reports easy bleeding and easy bruising EXAM Physical Exam Const Vital Signs: 08/01/24 12:33 08/01/24 14:20 08/01/24 14:32 Temperature 97.8 F Temperature Source Temporal Pulse Rate 102 H 93 Respiratory Rate 18 22 H Respiratory Effort Short of Breath Respiratory Depth Normal Respiratory Pattern Normal Blood Pressure 117/84 H 146/97 H Blood Pressure Mean 95 113 Pulse Ox 97 93 Oxygen Delivery Method Room Air Room Air Room Air Oxygen Flow Rate (L/min) 08/01/24 16:00 08/01/24 18:51 08/01/24 20:00 Temperature Temperature Source Pulse Rate 97 118 H Respiratory Rate 12 18 Respiratory Effort Respiratory Depth Respiratory Pattern Blood Pressure 146/95 H 147/99 H Blood Pressure Mean 112 115 Pulse Ox 92 95 88 Oxygen Delivery Method Room Air Room Air Room Air Oxygen Flow Rate (L/min) 08/01/24 20:02 08/01/24 20:04 08/01/24 20:11 Temperature Temperature Source Pulse Rate 63 Respiratory Rate Respiratory Effort Respiratory Depth Respiratory Pattern Blood Pressure 143/95 H 123/80 H Blood Pressure Mean 111 94 Pulse Ox 96 Oxygen Delivery Method Nasal Cannula Oxygen Flow Rate (L/min) 2 08/01/24 20:30 Temperature Temperature Source Pulse Rate Respiratory Rate Respiratory Effort Respiratory Depth Respiratory Pattern Blood Pressure Blood Pressure Mean Pulse Ox 100 Oxygen Delivery Method Nasal Cannula Oxygen Flow Rate (L/min) 2 Positive well nourished and well developed General Appearance ED: well developed and NAD HEENT Reports dry mucous membranes Mouth ED: Yes dry mucous membranes Mouth: dry mucous membranes Eyes PERRL Neck supple and no JVD Chest Wall inspection of chest normal and palpation of chest normal Chest Narrative: Pacemaker present in the left lateral anterior chest Resp normal respiratory effort and clear to auscultation bilaterally Resp Narrative: Diminished breath sounds at the bases. Auscultation: Negative for rales or rhonchi Cardio regular rate and regular rhythm Cardio Narrative: Blowing systolic murmur present GI normal to inspection, nondistended, normoactive bowel sounds GI Narrative: No fluid wave appreciated. No tenderness present. Palpation: soft; Negative for tender, guarding or mass Extremity normal to inspection Extremity Narrative: Pain edema up to the knees present Neuro oriented x3 Sensorium / Orientation: alert Motor Exam: Negative for general weakness Psych mental status grossly normal Skin Skin Narrative: Ecchymosis noted on the bilateral forearms and very stages of healing. No jaundice appreciated. Patient has a 2 cm circumferential area of erythema/ruborof the right lateral thoracic back with spontaneous drainage of thick white material as well as purulence. No associated fluctuance. This is consistent with irritated sebaceous cyst. MDM MDM MDM Narrative Medical decision making narrative: Patient evaluated for worsening shortness of breath and dyspnea on exertion. Denies any chest pain but does feel some tightness. Differential includes CHF exacerbation, fluid overload, MALIK, pulmonary emboli, electrolyte abnormality, hypoproteinemia/malnutrition and less likely pneumonia. CBC obtained which shows a normal white blood cell count. He has anemia with hemoglobin Nixon 0.0 but this is actually significantly improved compared to what he was at the beginning of the month. D-dimer is elevated at 1.39 and CTA of the chest is added on. CT of the abdomen pelvis IV contrast is ordered givenhe is reporting abdominal discomfort. Bicarb is low at 18.6 with a mildly elevated anion gap. His glucose is minimally elevated at 159 for nonfasting glucose. His phosphorus and magnesium are normal. AST is mildly elevated at 48but ALT is normal. Do not think there is primary liver pathology at this time. His BNP is significantly elevated at 41,328 which is almost double what it was amonth ago. He is not having any chest pain and EKG does not show ACS so I do not think he requires troponin level at this time. Initial chest x-ray shows bilateral pleural effusions with questionable opacity cannot exclude pneumonia. This is reviewed by myself as well as radiology. CTA of the chest shows no PE, worsening pleural effusions and tiny linear hyperdensity of the aortic edge which could be artifact or dissection. Patient has a history of aortic aneurysm repair and aortic valve replacement. I spoke with cardiothoracic surgery and cardiac fellow at [facility], Dr. Callahan and , who do not think this is an acute dissection. I received a call back from Dr. Callahan who states he reviewed the imaging with their head radiologistand they compared this to imaging in 2017 and these findings were felt to be chronic and unchanged. No acute intervention from a cardiothoracic standpoint is needed. Because of this, patient will be admitted here for diuresis and CHF exacerbation. Patient additionally was given a dose of labetalol as he became more hypertensive and tachycardic in the emergency room and initially was given Tylenol and then a dose of fentanyl for headache and muscle cramps. Case discussed with hospitalist, Dr. Aguayo. Patient does not have a fever, leukocytosis and I do not think there is a pneumonia. Do not think he requires antibiotics at this time Lab Data Labs: Laboratory Results - last 24 hr 08/01/24 15:20 WBC 5.4 RBC 3.08 L Hgb 11.0 L Hct 34.0 L MCV 110.4 H MCH 35.7 H MCHC 32.4 RDW Std Deviation 58.4 H RDW Coeff of Kalpana 14.3 Plt Count 189 MPV 11.9 Immature Gran % (Auto) 0.400 Neut % (Auto) 73.3 H Lymph % (Auto) 16.1 L Erath % (Auto) 8.0 Eos % (Auto) 0.9 Baso % (Auto) 1.3 H Absolute Neuts (auto) 4.0 Absolute Lymphs (auto) 0.87 Nucleated RBC % 0 D-Dimer Quant (PE/DVT) 1.39 H* Sodium 137 Potassium 3.8 Chloride 103 Carbon Dioxide 18.6 L Anion Gap 16 H BUN 9 Creatinine 1.17 Est GFR (MDRD) Non-Af 70 BUN/Creatinine Ratio 7.7 L Glucose 159 H Calcium 8.4 Phosphorus 2.8 Magnesium 2.2 Total Bilirubin 0.37 AST 48 H ALT 20 Alkaline Phosphatase 121 [place] [address] H Total Protein 6.3 Albumin 3.0 L Globulin 3.3 Albumin/Globulin Ratio 0.9 Lipase 9 L Radiography Diagnostic Testing: Clinical Impression(s) from Imaging Studies Chest X-Ray 08/01/24 15:30 IMPRESSION: Mild bibasilar pleural effusions. Bilateral lower lobe opacities not excluded with residual opacity within the left lower lobe. Reading Location: [facility] Abdomen/Pelvis CT 08/01/24 16:40 IMPRESSION: CHEST: 1. No evidence of pulmonary embolism. 2. Tiny linear hypodensity at the aortic arch, possibly artifactual related to motion or blood flow, though dissection could appear similar. Consider Vascular Surgery consultation. Repeat imaging could be performed with ECG gating. Of note, the ascending thoracic aorta measures 4.0 cm in diameter. 3. Lpkqgdpu-vx-songf pleural effusions bilaterally, slightly increased comparedto CT on 07/11/2024. Bibasilar consolidation may represent compressive atelectasis, though infection could appear similar. ABDOMEN AND PELVIS: 1. Mucosal hyperenhancement with mild wall thickening involving the stomach through jejunum, as may be seen with gastroenteritis, which could be of infectious, inflammatory, or ischemic etiology. 2. Hepatic steatosis. Reading Location: [id number] Chest CTA 08/01/24 16:40 IMPRESSION: CHEST: 1. No evidence of pulmonary embolism. 2. Tiny linear hypodensity at the aortic arch, possibly artifactual related to motion or blood flow, though dissection could appear similar. Consider Vascular Surgery consultation. Repeat imaging could be performed with ECG gating. Of note, the ascending thoracic aorta measures 4.0 cm in diameter. 3. Lkhxojol-jk-nakjg pleural effusions bilaterally, slightly increased comparedto CT on 07/11/2024. Bibasilar consolidation may represent compressive atelectasis, though infection could appear similar. ABDOMEN AND PELVIS: 1. Mucosal hyperenhancement with mild wall thickening involving the stomach through jejunum, as may be seen with gastroenteritis, which could be of infectious, inflammatory, or ischemic etiology. 2. Hepatic steatosis. Reading Location: [facility] Rhythm Strip Rhythm Strip: Sinus Rhythm Rate: 90 Ectopy: PAC(s) EKG Initial EKG: Attestation: I personally reviewed and interpreted this EKG as follows: Interpretation: Sinus Rhythm Comments: Normal sinus rhythm at a rate of 90 bpm with PACs Right bundle izzy block Normal ST segments Normal QRS Mildly prolonged QTc of 521 Compared to prior EKG on 06/25/2024, no significant manager of change Discussion w/another healthcare provider: Hospitalist and Commercial Service Technician (Cardiothoracic surgery at [facility]) Discharge Plan Dx/Rx/DC Orders Clinical Impression: Acute HFrEF (heart failure with reduced ejection fraction), HTN (hypertension),H/O aortic valve replacement, Pleural effusion Disposition Disposition: Acute Care Hospital [facility] Discharge Date/Time: 08/01/24 21:53 What to do if you have Problems For any increased pain, shortness of breath, bleeding, nausea or vomiting, chestpain, or any unexpected problems, contact your Primary Care Provider. Call [facility] ([phone]) or report to the closest Emergency Room. Call 911 if necessary. 08/01/24 2306 <Electronically signed by Tierney Macdonald DO> Cosigner Signature (if applicable): CC: Sigrid Call DO ~ Signed [facility] Work Phone: [phone] 720-610806-24-2025 Radiology Diagnostic study [facility]06-24-2025 Radiology Diagnostic study [facility]06-24-2025 Radiology Diagnostic study [facility] 07-17-2024 NoteHNO ID: [id number] Author: RADHA ETIENNE RN Service: ? Author Type: Registered Nurse Type: Progress Notes Filed: 07/17/2024 14:28 Note Text: TRANSITIONAL CARE MANAGEMENT (TCM) COMMUNITY MONITORING PROGRAM - [place] SUMMARY: Pt discharged from [facility] on 07/11/24. Patient seen Inpatient TONY Visit? N/A. Patient seen ICARE Program? N/A. Contact made with patient: Yes Hi my name is Radha Etienne RN and I am calling from the [facility] on behalf of your PCP, Marianna Wagner APRN.SPLUNK D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 I understand you were recently in the hospital so I am calling to check in with you to ensure you are feeling well now that you?re home. Do you mind if I ask you a few questions related to your hospital stay and well-being No, patient declines phone calls. Contact with patient post discharge, spoke to patient. Patient identified by name and . Pt declined to participate in this phone call. States that he has a new PCP and hung up. Outreach [facility]06-09-2025 History of Present illness Narrative* Radha Etienne, ELIS - 07/17/2024 2:13 PM EDT TRANSITIONAL CARE MANAGEMENT (TCM) COMMUNITY MONITORING PROGRAM - [place] SUMMARY: Pt discharged from [facility] on 07/11/24. Patient seen Inpatient TONY Visit? N/A. Patient seen ICARE Program? N/A. Contact made with patient: Yes Hi my name is Radha Etienne RN and I am calling from the [facility] on behalf of your PCP, Marianna Wagner APRN.CNP I understand you were recently in the hospital so I am calling to check in with you to ensure you are feeling well now that you re home. Do you mind if I askyou a few questions related to your hospital stay and well-being No, patient declines phone calls. Contact with patient post discharge, spoke to patient. Patient identified by name and . Pt declined to participate in this phone call. States that he has a new PCP and hung up. [facility] NotePatient Outreach ([facility]) ANALILIA MELENDREZ ([id number]) 1960 M Date Time Provider Department 07/17/24 RADHA EITENNE [facility] During your visit today, we recorded the following information about you: Radha Etienne RN 07/17/2024 2:28 PM Signed TRANSITIONAL CARE MANAGEMENT (TCM) COMMUNITY MONITORING PROGRAM - [place] SUMMARY: Pt discharged from [facility] on 07/11/24. Patient seen Inpatient TONY Visit? N/A. Patient seen ICARE Program? N/A. Contact made with patient: Yes Hi my name is Radha Etienne RN and I am calling from the [facility] on behalf of your PCP, Marianna Wagner APRN.CNP I understand you were recently in the hospital so I am calling to check in with you to ensure you are feeling well now that you?re home. Do you mind if I ask you a few questions related to your hospital stay and well-being No, patient declines phone calls. Contact with patient post discharge, spoke to patient. Patient identified by name and . Pt declined to participate in this phone call. States that he has a new PCP and hung up. Outreach Ended Allergies As of Date: 07/17/2024 (No Known Allergies) Date Reviewed: 04/12/2024 Reviewed by: aVndana Edwards - Fully Assessed Reason for Visit: Transition Of Care [3684] Cmt: Andres D/Stephen 07/14/24 Prescriptions as of 07/17/2024 - traMADol (ULTRAM) 50 mg tablet Take 50 mg by mouth every 8 hours as needed for pain. - UNIFINE PENTIPS 31 gauge x 3/16 USE 3 TIMES DAILY - metoprolol tartrate, short acting, (LOPRESSOR) 50 mg tablet TAKE ONE TABLET BY MOUTH TWICE A DAY - pantoprazole DR (PROTONIX) 40 mg tablet TAKE ONE TABLET BY MOUTH TWICE A DAY 3O MINUTES BEFORE MEAL - ramipril (ALTACE) 10 mg capsule TAKE ONE CAPSULE BY MOUTH EVERY DAY - atorvastatin (LIPITOR) 40 mg tablet TAKE ONE TABLET BY MOUTH EVERY DAY - insulin glargine 100 unit/mL (3 mL) Inject 15 Units subcutaneously once daily. - metFORMIN ER (GLUCOPHAGE XR) 500 mg 24 hr tablet Take 2 tablets by mouth daily with breakfast. - FARXIGA 10 mg tablet Take 1 tablet by mouth daily with breakfast. - ferrous sulfate (FEROSUL) 325 mg (65 mg iron) tablet TAKE ONE TABLET BY MOUTH EVERY DAY - Blood-Glucose Sensor (FREESTYLE MANGO 3 SENSOR) daniel Apply new sensor every fourteen (14) days to upper arm. - ovlyjr-pmyoqsek-zasxtci (CREON 36) 36,000-114,000- 180,000 unit delayed release capsule Take 2 pills by mouth with first bite of meal and take 1 pill with snacks. Max 10 per day. - Cholecalciferol, Vitamin D3, (VITAMIN D-3) 50 mcg (2,000 unit) cap Take 1 capsule by mouth once daily. - Blood-Glucose Meter,Continuous (FREESTYLE MANGO 3 READER) [facility] Use to check blood sugar at least four (4) times daily. - dicyclomine (BENTYL) 10 mg capsule Take 1 capsule by mouth before meals and at bedtime. - MULTIVITAMIN ORAL Take 1 tablet by mouth once daily. Problem List As Of Date 07/17/2024 Noted Resolved SUMMARY 03/09/2016 Acute thoracic aortic dissection (HCC) [I71.019]03/09/2016 Primary hypertension [I10] 03/09/2016 History of IVDU (intravenous drug user) [F19.90]03/09/2016 Smoking greater than 10 pack years [F17.210] 03/09/2016 History of depression [Z86.59] 03/09/2016 Type 2 diabetes mellitus with complication, wit*03/09/2016 Alcohol-induced chronic pancreatitis (HCC) [K86*03/09/2016 History of ruptured aneurysm of thoracic aorta *03/09/2016 03/10/2016 Acute headache [R51.9] 03/09/2016 History of alcohol abuse [F10.11] 03/09/2016 History of dissection of thoracic aorta [Z86.79]03/10/2016 Preop testing [Z01.818] 03/16/2016 03/20/2016 Cardiac insufficiency (HCC) [I50.9] 03/19/2016 03/26/2016 Postoperative hypotension [I95.81] 03/19/2016 03/21/2016 Pain, postoperative, acute [G89.18] 03/19/2016 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] 03/20/2016 03/26/2016 Acute respiratory failure with hypoxia (HCC) [J*03/21/2016 03/26/2016 Fluid overload [E87.70] 03/21/2016 03/22/2016 Hypoxemia [R09.02] 03/23/2016 03/26/2016 Discharge planning issues [Z75.8] 03/26/2016 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] Pacemaker [Z95.0] Adrenal nodule (HCC) [E27.9] 08/09/2023 Acute kidney failure, unspecified (HCC) [N17.9] 01/03/2017 Anemia in CKD (chronic kidney disease) [N18.9, *08/09/2023 Aortic aneurysm (HCC) [I71.9] 08/09/2023 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 Chronic pancreatitis (HCC) [K86.1] 08/09/2023 Calcium deficiency [E58] 08/09/2023 Cirrhosis of liver (HCC) [K74.60] 08/09/2023 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06-06-2025 Discharge summary Author Conrado Morel [facility] Note Date/Time July 14, 2024 8:42a [facility] Medical Records Department [address] [place] [address] Discharge Summary 07/14/24 0839 MR#: [id number] Acct: [id number] Name: ANALILIA MELENDREZ Rep #:[id number] : 1960 63 From: Conrado Morel MD PCP: Sigrid Call DO Status:ADM IN [id number] Providers Date of Admission: 07/11/24 Date of Discharge: 07/14/24 Primary Care Physician: LETICIA Cook DO Consultations 07/11/24 16:39 Consult: General Surgery Routine Consulting Provider: Denys Fontanez Reason for Consult: Ileus vs pSBO EMERGENT Consult: No MD Notified: Yes Date Notified: 07/11/24 Time Notified: 14:08 Method of Notification: Text Reason For Visit: ILEUS VS PSBO Diagnosis Discharge Diagnosis (1) Abdominal pain: Status: Acute Code(s): R10.9 - Unspecified abdominal pain (2) Nausea & vomiting: Status: Acute Code(s): R11.2 - Nausea with vomiting, unspecified (3) Suicidal ideation: Status: Acute Code(s): R45.851 - Suicidal ideations Plan Patient is a 63-year-old gentleman presented with abdominal pain imaging studiesdemonstrated partial small bowel obstruction versus ileus with significant constipation admitted to regular nursing floor for further management 1. Acute on chronic abdominal pain secondary to ileus versus partial small bowelobstruction - CT abdomen pelvis shows developing partial small bowel obstruction versus ileus with significant constipation and stable bilateral pleural effusions. Patient admitted to regular nursing floor treatment initiated with Fleet enemas. Patient did have some bowel movement. Repeat KUB ordered this a.m. for response to therapy ? 07/13/2024;Patient underwent small bowel follow-through which did not show any ileus no obstruction.. Plan is to advance diet to regular consistency as tolerated ? 07/14/2024; patient tolerated oral diet. Decision was made to discharge patient 2. Suicidal ideation ? Patient was placed under suicide precaution with consultation placed to the crisis center ? 07/13/2024 patient stable to be evaluated by the crisis center ? 07/14/2024; patient was seen in consultation by the crisis center safety plan was written for the patient 3. Chronic abdominal pain?secondary to chronic pancreatitis ? Patient is on Creon did continue 4. Anemia ? Secondary to chronic disorder monitoring H&H and transfuse if patient becomes symptomatic or hemoglobin falls below 7 6. Acute kidney injury ? Patient creatinine on 07/05/2024 was 1.70 improved with hydration creatinine down to 1.12 7.? Diabetes mellitus type II -Continue patient on his home regimen in addition to Accu-Cheks before meals andat bedtime with sliding scale coverage 8.? Sick sinus syndrome ? Status post pacemaker placement 9.? History of ascending aortic dissection ? Status post repair 10.? Valvular heart disease - history of aortic valve replacement with bioprosthetic material 11.? Hypertension - Blood pressure low on admission antihypertensives held 12. Dyslipidemia -Patient is on statin therapy, continued at home dose 13. GERD ? On famotidine 14. Physical deconditioning - Requested for PT OT eval and transition social worker to assist with discharge planning 15. Tobacco dependence ? Counseled on cessation, offered nicotine patch for tobacco cravings 16. Chronic congestive heart failure with reduced ejection fraction ? Patient is on furosemide Aldactone as well as metoprolol continued. Patient had a 2D echo performed on 07/01/2024 which did show The estimated ejection fraction is 35-40 %. Moderate LV systolic dysfunction with global LV hypokinesia. 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 Mean aortic valve gradient 40.2 mmHg. Pacemaker lead seen inthe right ventricle Trivial MR Transmitral Doppler flow revealed impaired relaxation of LV. 07/13/2024; patient remains compensated 17. DVT prophylaxis -Enoxaparin 40 daily Time spent in the patient's overall evaluation,decision-making process, review of diagnostic data, adjustment of management, discussion with other providers, nursing nursing and ancillary staff involved in patient's care documentation, 35Minutes Medications at Discharge Home Medications atorvastatin 10 mg tablet 10 mg PO DAILY CHOLESTEROL 10/17/20 dapagliflozin propanediol 10 mg tablet (Farxiga) 10 mg PO DAILY DIABETES 09/30/21 multivitamin 1 tab PO DAILY SUPPLEMENT 11/11/21 gabapentin 300 mg capsule 300 mg PO DAILY NEUROPATHY 11/14/22 metformin 500 mg tablet,extended release 24 hr 500 mg PO BID DIABETES 11/15/22 L.acidophil,salivari-Bifido bifidum-Strep thermoph 175 mg capsule 2 cap PO BID #0 caps 05/20/23 folic acid 1 mg tablet 1 mg PO DAILY@0800 supplement #0 tabs 05/20/23 thiamine HCl (vitamin B1) 100 mg tablet (Vitamin B-1) 100 mg PO DAILYCM vitamin #0 tabs 05/20/23 pantoprazole 40 mg tablet,delayed release 40 mg PO BID reflux #60 tabs 06/27/23 vwuuux-msilsjad-syshdjb 24,000-76,000-120,000 unit capsule,delayed rel (Creon) 1cap PO TIDCM #90 caps 06/28/24 ferrous sulfate 325 mg (65 mg iron) tablet (FeroSul) 325 mg PO DAILY supplement 06/30/24 furosemide 20 mg tablet 20 mg PO DAILY 30 days #30 tabs 07/06/24 metoprolol succinate 25 mg tablet,extended release 24 hr 12.5 mg (1/2 x 25 mg) PO DAILY 30 days #15 tabs 07/06/24 spironolactone 25 mg tablet 25 mg PO DAILY 30 days #30 tabs 07/06/24 tramadol 50 mg tablet 50 mg PO Q8H PRN pain 3 days #9 tabs 07/06/24 Physical Exam Narrative GENERAL: cooperative HEENT: Atraumatic; normocephalic EYES; Anicteric, Normal Conjunctiva NECK; supple, normal thyroid, RESPIRATORY: Diminished to auscultation CARDIOVASCULAR: Regular S1 S2, GI: soft, normoactive bowel sounds, : No Renal angle tenderness; EXTREMITIES: No edema, no clubbing, MUSCULOSKELETAL: no muscle wasting NEURO: Awake; no lateralizing signs. SKIN: No Rash PSYCH; Flat affect Weight / BMI Weight Weight: 65.6 kg Body Mass Index (BMI) 20.1 ABG / Lab / Microbiology Data 07/13/24 07:28 07/13/24 07:28 Laboratory: Laboratory Results - last 24 hr 07/13/24 11:50: POC Glucose 270 H 07/13/24 16:08: POC Glucose 190 H 07/13/24 22:27: POC Glucose 205 H 07/14/24 06:28: POC Glucose 253 H D/C Instructions Discharge Diet: 1800 Calorie Control Diet Discharge Activity: Return to Normal Activity Call your doctor if you observe: Fever of 101 or Higher, Shortness of breath, Fainting spells and Chest pain DC O2, CPAP, BIPAP Needs Home O2 Discharge instructions: No Meaningful Use Info Meaningful Use Meaningful Use Diagnoses (Choose all that apply): None applicable Ischemic Stroke Statin Dosing Therapy Reference: STATIN DOSE THERAPY REFERENCE: * Patients > 75 years receive moderate or high dose statin therapy. * Patients 75 years or YOUNGER should receive HIGH intensity statin dose unless contraindicated. You will be required to document reason for non-treatment if statin daily dose does not meet guidelines. HIGH DOSE STATIN THERAPY DAILY Atorvastatin > than or = to 40 mg Rosuvastatin > than or = to 20 mg Amlodipine + Atorvastatin > than or = to 2.5/40 mg Ezetimibe + Simvastatin 10/80 mg Simvastatin 80mg Discharge Plan Admission Admit Date/Time: 07/11/24 14:06 Attending Provider: Conrado Morel Primary Care Provider: Sigrid Call [facility] Consulting Providers: Denys Fontanez; Melonie De La Rosa Discharge Orders/Prescriptions Prescriptions: Continued atorvastatin 10 mg tablet 10 mg PO DAILY dapagliflozin propanediol [Farxiga] 10 mg Tablet 10 mg PO DAILY multivitamin Tablet 1 tab PO DAILY gabapentin 300 mg Capsule 300 mg PO DAILY metformin 500 mg tablet extended release 24 hr 500 mg PO BID Patient Comments: PT STATES THEY TAKE THIS ONCE DAILY. pantoprazole 40 mg tablet,delayed release (DR/EC) 40 mg PO BID Qty: 60 0RF Creon 24,000-76,000 -120,000 unit Capsule,Delayed Release(Dr/Ec) 1 cap PO TIDCM Qty: 90 1RF thiamine HCl (vitamin B1) [Vitamin B-1] 100 mg Tablet 100 mg PO DAILYCM Qty: 0 0RF L.acidoph,saliva-B.bif-S.therm 175 mg Capsule 2 cap PO BID Qty: 0 0RF folic acid 1 mg Tablet 1 mg PO DAILY@0800 Qty: 0 0RF ferrous sulfate [FeroSul] 325 mg (65 mg iron) tablet 325 mg PO DAILY furosemide 20 mg Tablet 20 mg PO DAILY 30 Days Qty: 30 2RF metoprolol succinate 25 mg Tablet Extended Release 24 Hr 12.5 mg PO DAILY 30 Days Qty: 15 2RF spironolactone 25 mg Tablet 25 mg PO DAILY 30 Days Qty: 30 2RF tramadol 50 mg tablet 50 mg PO Q8H PRN (Reason: pain) 3 Days Qty: 9 0RF Discontinued insulin lispro [Humalog KwikPen Insulin] 100 unit/mL Insulin Pen See Protocol subcut ACHS Qty: 0 0RF Protocol: 4. Sliding Scale Insulin High-Med Dosing Condition: 150-199 mg/dl = 2 units Condition: 200-259 mg/dl = 4 units Condition: 260-324 mg/dl = 6 units Condition: 325-374 mg/dl = 8 units Condition: 375-409 mg/dl = 10 units Condition: 410-449 mg/dl = 11 units Condition: Greater than 449 call physician Protocol Text: - Use for Total Daily Dose of Insulin 56-80 units - Patient who are insulin resistant or septic HIGH MEDIUM DOSING ALGORITHM Referrals / Follow Up: Sigrid Call DO [Primary Care Provider] - 07/17/24 10:00 am (Please arrive 15-20 min early to complete paperwork. ) Disposition Disposition (needs filled in before D/C Order can be placed): Home, Self Care Charges/Coding Visit Charges Inpatient E&M: 71967 Disch Hosp >30min 07/14/24 0842 <Electronically signed by Conrado Morel MD> Cosigner Signature (if applicable): CC: Dr. 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 Plan is to advance diet to regular consistency as tolerated. Patient is also medically stable to be evaluated by crisis Objective Data Objective Data Vital Signs: Vital Signs Temp Pulse Resp BP Pulse Ox O2 Del Method 99.4 F H 102 H 18 144/99 H 97 Room Air 07/13/24 09:15 07/13/24 09:21 07/13/24 09:15 07/13/24 09:15 07/13/24 09:15 07/13/24 09:15 Oxygen Delivery Method Room Air Weight: 69.3 kg Body Mass Index (BMI) 21.3 Intake & Output: Intake and Output for Last 24 Hours 07/11/24 07/12/24 07/13/24 23:59 23:59 23:59 Intake Total 1476.25 / 1476.25 1707.50 / 1707.50 104.5 / 104.5 Balance 1476.25 / 1476.25 1707.50 / 1707.50 104.5 / 104.5 Lab / Micro Data 07/13/24 07:28 07/13/24 07:28 Labs: Laboratory Results - last 24 hr 07/12/24 11:26: POC Glucose 236 H 07/12/24 17:15: POC Glucose 99 07/12/24 23:07: POC Glucose 98 07/13/24 05:53: POC Glucose 101 07/13/24 07:28: WBC 6.4, RBC 2.37 L, Hgb 8.5 L, Hct 26.5 L, MCV 111.8 H, MCH 35.9 H, MCHC 32.1, RDW Std Deviation 63.7 H, RDW Coeff of Kalpana 15.6 H, Plt Count 165, MPV 11.0, Immature Gran % (Auto) 0.300, Neut % (Auto) 74.2 H, Lymph % (Auto) 16.6 L, Erath % (Auto) 6.6, Eos % (Auto) 1.4, Baso % (Auto) 0.9, Absolute Neuts (auto) 4.8, Absolute Lymphs (auto) 1.06, Nucleated RBC % 0, Sodium 139, Potassium 4.4, Chloride 107, Carbon Dioxide 21.2, Anion Gap 11, BUN 8, Creatinine 1.19, Estim Creat Clear Calc 63.90, Est GFR (MDRD) Non-Af 69, BUN/Creatinine Ratio 6.7 L, Glucose 96, Calcium 8.3, Phosphorus 3.1, Magnesium 2.0 Radiography Diagnostic Testing: Radiology Impression Abdomen X-Ray 07/12/24 09:37 IMPRESSION: Limited imaging chest demonstrates left basilar airspace disease, and with questionable small left pleural effusion. No evidence of pneumoperitoneum. Prominent bilateral arterial calcification is seen, most apparent in the iliac arteries. Air and stool are seen throughout the large bowel and rectum. Multiple air-filled but nondilated small bowel loops are noted. No mass or mass effect is seen. Reading Location: [id number] Small Bowel X-Ray 07/12/24 14:30 IMPRESSION: No evidence of ileus or obstruction. Reading Location: [id number] Physical Exam Narrative GENERAL: cooperative HEENT: Atraumatic; normocephalic EYES; Anicteric, Normal Conjunctiva NECK; supple, normal thyroid, RESPIRATORY: Diminished to auscultation CARDIOVASCULAR: Regular S1 S2, GI: soft, normoactive bowel sounds, : No Renal angle tenderness; EXTREMITIES: No edema, no clubbing, MUSCULOSKELETAL: no muscle wasting NEURO: Awake; no lateralizing signs. SKIN: No Rash PSYCH; Flat affect Assessment & Plan Assessment/Plan (1) Abdominal pain: (2) Nausea & vomiting: (3) Suicidal ideation: PLAN: Plan Patient is a 63-year-old gentleman presented with abdominal pain imaging studiesdemonstrated partial small bowel obstruction versus ileus with significant constipation admitted to regular nursing floor for further management 1. Acute on chronic abdominal pain secondary to ileus versus partial small bowelobstruction - CT abdomen pelvis shows developing partial small bowel obstruction versus ileus with significant constipation and stable bilateral pleural effusions. Patient admitted to regular nursing floor treatment initiated with Fleet enemas. Patient did have some bowel movement. Repeat KUB ordered this a.m. for response to therapy ? 07/13/2024;Patient underwent small bowel follow-through which did not show any ileus no obstruction.. Plan is to advance diet to regular consistency as tolerated 2. Suicidal ideation ? Patient was placed under suicide precaution with consultation placed to the crisis center ? 07/13/2024 patient stable to be evaluated by the crisis center 3. Chronic abdominal pain?secondary to chronic pancreatitis ? Patient is on Creon did continue 4. Anemia ? Secondary to chronic disorder monitoring H&H and transfuse if patient becomes symptomatic or hemoglobin falls below 7 6. Acute kidney injury ? Patient creatinine on 07/05/2024 was 1.70 improved with hydration creatinine down to 1.12 7.? Diabetes mellitus type II -Continue patient on his home regimen in addition to Accu-Cheks before meals andat bedtime with sliding scale coverage 8.? Sick sinus syndrome ? Status post pacemaker placement 9.? History of ascending aortic dissection ? Status post repair 10.? Valvular heart disease - history of aortic valve replacement with bioprosthetic material 11.? Hypertension - Blood pressure low on admission antihypertensives held 12. Dyslipidemia -Patient is on statin therapy, continued at home dose 13. GERD ? On famotidine 14. Physical deconditioning - Requested for PT OT eval and transition social worker to assist with discharge planning 15. Tobacco dependence ? Counseled on cessation, offered nicotine patch for tobacco cravings 16. Chronic congestive heart failure with reduced ejection fraction ? Patient is on furosemide Aldactone as well as metoprolol continued. Patient had a 2D echo performed on 07/01/2024 which did show The estimated ejection fraction is 35-40 %. Moderate LV systolic dysfunction with global LV hypokinesia. 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 Mean aortic valve gradient 40.2 mmHg. Pacemaker lead seen inthe right ventricle Trivial MR Transmitral Doppler flow revealed impaired relaxation of LV. 07/13/2024; patient remains compensated 17. DVT prophylaxis -Enoxaparin 40 daily Time spent in the patient's overall evaluation,decision-making process, review of diagnostic data, adjustment of management, discussion with other providers, nursing nursing and ancillary staff involved in patient's care documentation, 38Minutes Charges/Coding Visit Charges Inpatient E&M: 07195 Subs Hosp L2 07/13/24 1028 <Electronically signed by Conrado Morel MD> Cosigner Signature (if applicable): CC: ~ Signed [facility] Work Phone: 1(206) 611-422806-05-2025 Progress note Author Dian Mendoza [facility] Note Date/Time July 13, 2024 8:19a m [facility] Medical Records Department [address] [place] [address] Progress Note - Surgery 07/13/24 0808 MR#: [id number] Acct: [id number] Name: ANALILIA MELENDREZ Rep #:[id number] : 1960 63 From: Dian BALDERAS PA-C PCP: ALAN Wilde Status:ADM I N Location: [place] [address] Subjective Subjective Patient evaluated resting comfortably in bed. he notes some abdominal cramping. He denies any nausea, vomiting. He had a small bowel follow-through yesterday which demonstrated contrast within the colon in 1 hour and no ileus or obstruction noted. Objective Data Objective Data Vital Signs: Vital Signs Temp Pulse Resp BP Pulse Ox O2 Del Method 98.0 F 98 18 156/62 H 96 Room Air 07/13/24 02:17 07/13/24 02:17 07/13/24 02:17 07/13/24 02:07/13/24 02:07/13/24 02:17 Oxygen Delivery Method Room Air Weight: 152 lb 12.485 oz Body Mass Index (BMI) 21.3 Intake & Output: Intake and Output for Last 24 Hours 07/11/24 07/12/24 07/13/24 23:59 23:59 23:59 Intake Total 1476.25 / 1476.25 1707.50 / 1707.50 Balance 1476.25 / 1476.25 1707.50 / 1707.50 Lab / Micro Data 07/13/24 07:28 07/13/24 07:28 Labs: Laboratory Results - last 24 hr 07/12/24 11:26: POC Glucose 236 H 07/12/24 17:15: POC Glucose 99 07/12/24 23:07: POC Glucose 98 07/13/24 05:53: POC Glucose 101 07/13/24 07:28: WBC 6.4, RBC 2.37 L, Hgb 8.5 L, Hct 26.5 L, MCV 111.8 H, MCH 35.9 H, MCHC 32.1, RDW Std Deviation 63.7 H, RDW Coeff of Kalpana 15.6 H, Plt Count 165, MPV 11.0, Immature Gran % (Auto) 0.300, Neut % (Auto) 74.2 H, Lymph % (Auto) 16.6 L, [place] % (Auto) 6.6, Eos % (Auto) 1.4, Baso % (Auto) 0.9, Absolute Neuts (auto) 4.8, Absolute Lymphs (auto) 1.06, Nucleated RBC % 0, Sodium 139, Potassium 4.4, Chloride 107, Carbon Dioxide 21.2, Anion Gap 11, BUN 8, Creatinine 1.19, Estim Creat Clear Calc 63.90, Est GFR (MDRD) Non-Af 69, BUN/Creatinine Ratio 6.7 L, Glucose 96, Calcium 8.3, Phosphorus 3.1, Magnesium 2.0 Radiography Diagnostic Testing: Radiology Impression Abdomen X-Ray 07/12/24 09:37 IMPRESSION: Limited imaging chest demonstrates left basilar airspace disease, and with questionable small left pleural effusion. No evidence of pneumoperitoneum. Prominent bilateral arterial calcification is seen, most apparent in the iliac arteries. Air and stool are seen throughout the large bowel and rectum. Multiple air-filled but nondilated small bowel loops are noted. No mass or mass effect is seen. Reading Location: [id number] Small Bowel X-Ray 07/12/24 14:30 IMPRESSION: No evidence of ileus or obstruction. Reading Location: [id number] Physical Exam GI GI Narrative: Abdomen- soft, nontender, hypoactive bowel sounds Assessment & Plan Assessment/Plan (1) Abdominal pain: (2) Partial bowel obstruction: PLAN: Plan I am following this patient in conjunction with Dr. Miranda in Dr. Fontanez's absence. SBFT was normal yesterday Start clear liquids and advance as tolerated No surgical intervention being recommended Patient having bowel function We will sign off at this time Please consult our service if patient's symptoms change. Thank you Charges/Coding Visit Charges Inpatient E&M: 86258 Subs Hosp L2 07/13/24 0812 <Electronically signed by Dian BALDERAS PA-C> Cosigner Signature (if applicable): CC: ~ Signed ADDENDUM by Dr. Analilia Miranda MD on 07/13/24 at 0819 Addendum Patient seen and examined on rounds this morning. Agree with assessment and plan as outlined by ANDREY Lagunas. Patient underwent successful small bowel follow-through yesterday which showed no evidence of obstruction. Clinically he seems to be improving as he is passing flatus and stool. Recommend advancing diet. No further surgical plans. 07/13/24 0819<Electronically signed by Analilia Miranad MD> Cosigner Signature (if applicable): cc: ~* Signed [facility] Work Phone: 1(744) [phone] Radiology Diagnostic study [facility]06-04-2025 Progress note Author Conrado Morel [facility] Note Date/Time July 12, 2024 10:31 am [facility] Medical Records Department [address] [place] [address] Progress Note - Hospitalist 07/12/24 0715 MR#: [id number] Acct: [id number] Name: ANALILIA MELENDREZ Rep #:[id number] : 1960 63 From: Conrado Morel MD PCP: Marianna Wagner, VEHICLE MODIFICATION TECHNICIAN-C Status:ADM I N Location: MS3 [id number] Reason for Visit Reason for Visit: Diagnoses Unspecified abdominal pain (07/11/24) Nausea with vomiting, unspecified (07/11/24) Suicidal ideations (07/11/24) Subjective Subjective Patient is a 63-year-old gentleman presented with abdominal pain imaging studiesdemonstrated partial small bowel obstruction versus ileus with significant constipation admitted to regular nursing floor for further management Objective Data Objective Data Vital Signs: Vital Signs Temp Pulse Resp BP Pulse Ox O2 Del Method 98.1 F 84 16 115/80 96 Room Air 07/12/24 04:55 07/12/24 04:55 07/12/24 04:55 07/12/24 04:55 07/12/24 04:55 07/12/24 04:55 Oxygen Delivery Method Room Air Weight: 65.1 kg Body Mass Index (BMI) 20.0 Intake & Output: Intake and Output for Last 24 Hours 07/10/24 07/11/24 07/12/24 23:59 23:59 23:59 Intake Total 1476.25 / 1476.25 507.5 / 507.5 Balance 1476.25 / 1476.25 507.5 / 507.5 Lab / Micro Data 07/12/24 05:52 07/12/24 05:52 Labs: Laboratory Results - last 24 hr 07/11/24 11:53: Urine Color Yellow, Urine Clarity Clear, Urine pH 8.0, Ur Specific [place] 1.010, Urine Protein 15 H, Urine Glucose (UA) Normal, Urine Ketones Negative, Urine Occult Blood Negative, Urine Nitrite Negative, Urine Bilirubin Negative, Urine Urobilinogen Normal, Ur Leukocyte Esterase Negative, Urine RBC 0 SEEN, Urine WBC 0 SEEN, Ur Squamous Epith Cells 0 SEEN, Urine Bacteria 0 SEEN, Urine Mucus 0 SEEN, Urine Opiates Screen NEGATIVE, U Buprenorphine Qual NEGATIVE, Ur Oxycodone Screen NEGATIVE, Urine Methadone Screen NEGATIVE, Urine Fentanyl Screen NEGATIVE, Ur Barbiturates Screen PRESUMPTIVE POSITIVE, Ur Phencyclidine Scrn NEGATIVE, Ur Amphetamines Screen NEGATIVE, U Benzodiazepines Scrn NEGATIVE, Urine Cocaine Screen NEGATIVE, U Cannabinoids Screen NEGATIVE 07/11/24 12:06: WBC 5.6, RBC 2.61 L, Hgb 9.3 L, Hct 29.1 L, MCV 111.5 H, MCH 35.6 H, MCHC 32.0, RDW Std Deviation 66.4 H, RDW Coeff of Kalpana 16.1 H, Plt Count 155, MPV 11.0, Immature Gran % (Auto) 0.500, Neut % (Auto) 74.9 H, Lymph % (Auto) 15.4 L, [place] % (Auto) 7.7, Eos % (Auto) 0.4, Baso % (Auto) 1.1 H, Absolute Neuts (auto) 4.2, Absolute Lymphs (auto) 0.86, Nucleated RBC % 0, Platelet Estimate A, Polychromasia RARE, Anisocytosis 1+, Sodium 140, Potassium 4.6, Chloride 103, Carbon Dioxide 28.3, Anion Gap 8, BUN 10, Creatinine 1.15, Estim Creat Clear Calc 62.80, Est GFR (MDRD) Non-Af 72, BUN/Creatinine Ratio 8.9L, Glucose 137 H, Calcium 8.3, Total Bilirubin 0.34, Direct Bilirubin 0.21, AST 53 H, ALT 23, Alkaline Phosphatase 104, Total Protein 5.7 L, Albumin 2.9 L, Globulin 2.8, Lipase 6 L, Ethyl Alcohol < 10.1 07/11/24 18:26: POC Glucose 149 H 07/11/24 23:17: POC Glucose 97 07/12/24 05:52: WBC 4.7, RBC 2.32 L, Hgb 8.5 L, Hct 25.9 L, MCV 111.6 H, MCH 36.6 H, MCHC 32.8, RDW Std Deviation 66.2 H, RDW Coeff of Kalpana 16.1 H, Plt Count 161, MPV 11.4, Immature Gran % (Auto) 0.600, Neut % (Auto) 59.7, Lymph % (Auto) 26.0, [place] % (Auto) 10.5 H, Eos % (Auto) 1.7, Baso % (Auto) 1.5 H, Absolute Neuts (auto) 2.8, Absolute Lymphs (auto) 1.21, Nucleated RBC % 0, Anisocytosis 1+, Sodium 138, Potassium 4.2, Chloride 108, Carbon Dioxide 22.8, Anion Gap 7, BUN 9, Creatinine 1.12, Estim Creat Clear Calc 63.78, Est GFR (MDRD) Non-Af 75, BUN/Creatinine Ratio 8.3 L, Glucose 93, Calcium 8.1, Phosphorus 3.0, Magnesium 2.0, Total Bilirubin 0.36, AST 51 H, ALT 20, Alkaline Phosphatase 90, Total Protein 5.1 L, Albumin 2.5 L, Globulin 2.6, Albumin/Globulin Ratio 0.9 07/12/24 06:08: POC Glucose 94 Radiography Diagnostic Testing: Radiology Impression Abdomen/Pelvis CT 07/11/24 11:52 IMPRESSION: 1. Hepatomegaly with fatty infiltration. 2. Fecal retention in the colon consistent with constipation. 3. Umbilical hernia containing fat. 4. Bilateral pleural effusion with compressive atelectasis. Reading Location: [facility] Physical Exam Narrative GENERAL: cooperative HEENT: Atraumatic; normocephalic EYES; Anicteric, Normal Conjunctiva NECK; supple, normal thyroid, RESPIRATORY: Diminished to auscultation CARDIOVASCULAR: Regular S1 S2, GI: soft, normoactive bowel sounds, : No Renal angle tenderness; EXTREMITIES: No edema, no clubbing, MUSCULOSKELETAL: no muscle wasting NEURO: Awake; no lateralizing signs. SKIN: No Rash PSYCH; Flat affect Assessment & Plan Assessment/Plan (1) Abdominal pain: (2) Nausea & vomiting: (3) Suicidal ideation: PLAN: Plan Patient is a 63-year-old gentleman presented with abdominal pain imaging studiesdemonstrated partial small bowel obstruction versus ileus with significant constipation admitted to regular nursing floor for further management 1. Acute on chronic abdominal pain secondary to ileus versus partial small bowelobstruction - CT abdomen pelvis shows developing partial small bowel obstruction versus ileus with significant constipation and stable bilateral pleural effusions. Patient admitted to regular nursing floor treatment initiated with Fleet enemas. Patient did have some bowel movement. Repeat KUB ordered this a.m. for response to therapy 2. Suicidal ideation ? Patient was placed under suicide precaution with consultation placed to the crisis center 3. Chronic abdominal pain?secondary to chronic pancreatitis ? Patient is on Creon did continue 4. Anemia ? Secondary to chronic disorder monitoring H&H and transfuse if patient becomes symptomatic or hemoglobin falls below 7 6. Acute kidney injury ? Patient creatinine on 07/05/2024 was 1.70 improved with hydration creatinine down to 1.12 7.? Diabetes mellitus type II -Continue patient on his home regimen in addition to Accu-Cheks before meals andat bedtime with sliding scale coverage 8.? Sick sinus syndrome ? Status post pacemaker placement 9.? History of ascending aortic dissection ? Status post repair 10.? Valvular heart disease - history of aortic valve replacement with bioprosthetic material 11.? Hypertension - Blood pressure low on admission antihypertensives held 12. Dyslipidemia -Patient is on statin therapy, continued at home dose 13. GERD ? On famotidine 14. Physical deconditioning - Requested for PT OT eval and transition social worker to assist with discharge planning 15. Tobacco dependence ? Counseled on cessation, offered nicotine patch for tobacco cravings 16. Chronic congestive heart failure with reduced ejection fraction ? Patient is on furosemide Aldactone as well as metoprolol continued. Patient had a 2D echo performed on 07/01/2024 which did show The estimated ejection fraction is 35-40 %. Moderate LV systolic dysfunction with global LV hypokinesia. Significant difference in EF in comparison to the transthoracic echo in 2020, Severe concentric left ventricular hypertrophy Moderate to severe bioprosthetic aortic valve stenosis Aortic valve area 1.1 [id number] aortic valve gradient 60.2 mmHg. Mean aortic valve gradient 40.2 mmHg. Pacemaker lead seen in the right ventricle Trivial MR Transmitral Doppler flow revealed impaired relaxation of LV. 17. DVT prophylaxis -Enoxaparin 40 daily Time spent in the patient's overall evaluation,decision-making process, review of diagnostic data, adjustment of management, discussion with other providers, nursing nursing and ancillary staff involved in patient's care documentation,52 Minutes Charges/Coding Visit Charges Inpatient E&M: 90222 Subs Hosp L3 07/12/24 1031 <Electronically signed by Conrado Morel MD> Cosigner Signature (if applicable): CC: ~ Signed [facility] Work Phone: 1(476) 950-286406-04-2025 Consult note Author Dian Mendoza [facility] Note Date/Time July 12, 2024 10:15 am [facility] Medical Records Department [address] [place] [address] Consultation - Surgical 07/12/2427 MR#: [id number] Acct: [id number] Name: ANALILIA MELENDREZ Rep #:[id number] : 1960 63 From: Dian BALDERAS PA-C PCP: ALAN Wilde Status:ADM I N Location: MS3 [id number] Assessment & Plan Assessment/Plan (1) Abdominal pain: (2) Partial bowel obstruction: PLAN: Plan I have been consulted in conjunction with Dr. Fontanez. He has independently evaluated this patient. Patient is a 63 y/o M who presents with suicidal ideation, abdominal pain and nausea. Patient has a chronic history of irregular bowel habits. Patient successfully had multiple bowel movements following 2 enemas. We will plan to start the patient on clear liquids. No surgical intervention is being recommended at this time. Patient has had the opportunity to ask and have questions answered. Patient verbally understands and agrees withthe proposed plan. Thank you for allowing us to participate in this patient's care. HPI Consult Data Date of Consult: 07/12/24 HPI Narrative Reason for Consultation: Ileus versus small bowel obstruction HPI Narrative: ANALILIA MELENDREZ, is a 63 M who presents with suicidal ideation. Patient spoke with his counselor yesterday morning stating he did not want to live anymore. During evaluation in the ED, patient was noted to have abdominal pain with associated nausea. CT scan of the ab/pel was obtained demonstrating multiple distended small loops of bowel, fecal retention in the colon consistent with constipation, umbilical hernia containing fat, bilateral pleural effusions, hepatomegaly with fatty infiltration. Patient notes a history of irregular bowelhabits. He is unsure when his last bowel movement was. He has a history of chronic pancreatitis. Patient had 2 enemas overnight. He states he had 3 small loose liquidy bowel movements. He denies feeling nauseated now. He notes his abdominal pain has improved. [facility] Medical History Thrombocytopenia Chronic pancreatitis Macrocytosis associated with alcohol Ascites due to alcoholic cirrhosis Chronic diarrhea Chronic alcohol abuse Abdominal ascites MALIK (acute kidney injury) Seizures Alcoholic hepatitis Chronic pancreatitis Gastric wall thickening Alcohol dependence Anxiety Diabetes Pancreatitis Myocardial infarct Pacemaker AAA (abdominal aortic aneurysm) Admitted to alcohol detoxification center Alcohol abuse Hx of hypercholesterolemia History of diabetes mellitus Alcohol dependence Substance abuse Smoker Alcoholism Right bundle branch block (RBBB) Non-sustained ventricular tachycardia Thoracic aortic aneurysm SVT (supraventricular tachycardia) Ascending aortic dissection (~2005) Pure hypercholesterolemia Adrenal nodule Hiatal hernia Left carotid bruit Cardiac pacemaker in situ (~06/2016) Essential hypertension Pacemaker Sick sinus syndrome Tobacco use HTN (hypertension) Diabetes mellitus, type II Home Medications ?Medication ?Instructions ?Recorded ?Last Taken ?Type atorvastatin 10 mg tablet 10 mg PO DAILY CHOLESTEROL 0 10/17/20 04/19/23 History dapagliflozin propanediol 10 mg 10 mg PO DAILY DIABETE S 09/30/21 04/19/23 History tablet (Farxiga) multivitamin 1 tab PO DAILY SUPPLEMENT 11/10/21 History gabapentin 300 mg capsule 300 mg PO DAILY NEUROPATHY 1 Unknown History metformin 500 mg tablet,extended 500 mg PO BID DIABETE S 11/15/22 04/19/23 History release 24 hr L.acidophil,salivari-Bifido 2 cap PO BID #0 caps 05/19 Unknown Rx bifidum-Strep thermoph 175 mg capsule folic acid 1 mg tablet 1 mg PO DAILY@0800 supplemen t #0 05/20/23 Unknown Rx tabs insulin lispro 100 unit/mL See Protocol subcut ACHS di abetes 05/20/23 Unknown Rx subcutaneous pen (Humalog KwikPen #0 mL (U-100) Insulin) thiamine HCl (vitamin B1) 100 mg 100 mg PO DAILYCM vit padilla #0 tabs 05/20/23 Unknown Rx tablet (Vitamin B-1) pantoprazole 40 mg tablet,delayed 40 mg PO BID reflux #60 tabs 06/27/23 Unknown Rx release ouyhlh-zrbptjbc-tpoelru 1 cap PO TIDCM #90 caps 06/09 03/04 Unknown Rx 24,000-76,000-120,000 unit capsule,delayed rel (Creon) ferrous sulfate 325 mg (65 mg 325 mg PO DAILY suppleme nt 06/30/24 Unknown History iron) tablet (FeroSul) furosemide 20 mg tablet 20 mg PO DAILY 30 days #30 t abs 07/06/24 Unknown Rx metoprolol succinate 25 mg 12.5 mg (1/2 x 25 mg) PO DA RASHEED 30 07/06/24 Unknown Rx tablet,extended release 24 hr days #15 tabs spironolactone 25 mg tablet 25 mg PO DAILY 30 days #30 tabs 07/06/24 Unknown Rx tramadol 50 mg tablet 50 mg PO Q8H PRN pain 3 days #9 07/06/24 Unknown Rx tabs Allergy/AdvReac Type Severity Reaction Status Date / Time No Known Allergies Allergy Verified 07/11/24 11:38 Family History Father CAD (coronary artery disease) Mother Dementia Surgical History H/O cardiac catheterization History of aortic aneurysm repair (~2016) History of cataract surgery History of hernia repair History of aortic valve replacement with bioprosthetic valve (~2016) H/O aortic valve replacement Social History household members: family housing: house Smoking Status: Current every day smoker tobacco type: cigarettes alcohol intake: current alcohol intake frequency: 0-2 drinks per day details: Reports currently ~ 2 tall boys daily. substance use type: former substance user caffeine: Yes Type: coffee Number of servings: 3 ROS Constitutional Constitutional: Reports systems reviewed and no addt'l complaints, except as documented Eyes Eyes: Reports systems reviewed and no addt'l complaints, except as documented ENT HEENT: Reports systems reviewed and no addt'l complaints, except as documented Cardiovascular Cardiovascular: Reports systems reviewed and no addt'l complaints, except as documented Respiratory/Chest Respiratory/Chest: Reports systems reviewed and no addt'l complaints, except as documented Gastrointestinal Gastrointestinal: Reports systems reviewed and no addt'l complaints, except as documented Genitourinary Genitourinary: Reports systems reviewed and no addt'l complaints, except as documented Musculoskeletal Musculoskeletal: Reports systems reviewed and no addt'l complaints, except as documented Integumentary Integumentary: Reports systems reviewed and no addt'l complaints, except as documented Neurologic Neurologic: Reports systems reviewed and no addt'l complaints, except as documented Psychiatric Psychiatric: Reports systems reviewed and no addt'l complaints, except as documented Endocrine Endocrinology: Reports systems reviewed and no addt'l complaints, except as documented Hematologic/Lymphatic Hematologic/Lymphatic: Reports systems reviewed and no addt'l complaints, exceptas documented Allergic/Immunologic Allergic/Immunologic: Reports systems reviewed and no addt'l complaints, except as documented Physical Exam Const alert, oriented x3 and no apparent distress HEENT normocephalic and head/scalp atraumatic Eyes PERRL Neck full ROM Resp normal respiratory effort and clear to auscultation bilaterally Cardio regular rate and regular rhythm GI GI Narrative: Abdomen- soft, nondistended, nontender to palpation no CVA tenderness Back/Spine no CVA tenderness Extremity normal to inspection Skin no rashes or lesions noted Neuro no focal motor deficits and no sensory deficits noted Psych mental status grossly normal, thought process normal and cooperative Lab / Micro Data 07/12/24 05:52 07/12/24 05:52 Labs: Laboratory Results - last 24 hr 07/11/24 11:53: Urine Color Yellow, Urine Clarity Clear, Urine pH 8.0, Ur Specific [place] 1.010, Urine Protein 15 H, Urine Glucose (UA) Normal, Urine Ketones Negative, Urine Occult Blood Negative, Urine Nitrite Negative, Urine Bilirubin Negative, Urine Urobilinogen Normal, Ur Leukocyte Esterase Negative, Urine RBC 0 SEEN, Urine WBC 0 SEEN, Ur Squamous Epith Cells 0 SEEN, Urine Bacteria 0 SEEN, Urine Mucus 0 SEEN, Urine Opiates Screen NEGATIVE, U Buprenorphine Qual NEGATIVE, Ur Oxycodone Screen NEGATIVE, Urine Methadone Screen NEGATIVE, Urine Fentanyl Screen NEGATIVE, Ur Barbiturates Screen PRESUMPTIVE POSITIVE, Ur Phencyclidine Scrn NEGATIVE, Ur Amphetamines Screen NEGATIVE, U Benzodiazepines Scrn NEGATIVE, Urine Cocaine Screen NEGATIVE, U Cannabinoids Screen NEGATIVE 07/11/24 12:06: WBC 5.6, RBC 2.61 L, Hgb 9.3 L, Hct 29.1 L, MCV 111.5 H, MCH 35.6 H, MCHC 32.0, RDW Std Deviation 66.4 H, RDW Coeff of Kalpana 16.1 H, Plt Count 155, MPV 11.0, Immature Gran % (Auto) 0.500, Neut % (Auto) 74.9 H, Lymph % (Auto) 15.4 L, [place] % (Auto) 7.7, Eos % (Auto) 0.4, Baso % (Auto) 1.1 H, Absolute Neuts (auto) 4.2, Absolute Lymphs (auto) 0.86, Nucleated RBC % 0, Platelet Estimate A, Polychromasia RARE, Anisocytosis 1+, Sodium 140, Potassium 4.6, Chloride 103, Carbon Dioxide 28.3, Anion Gap 8, BUN 10, Creatinine 1.15, Estim Creat Clear Calc 62.80, Est GFR (MDRD) Non-Af 72, BUN/Creatinine Ratio 8.9L, Glucose 137 H, Calcium 8.3, Total Bilirubin 0.34, Direct Bilirubin 0.21, AST 53 H, ALT 23, Alkaline Phosphatase 104, Total Protein 5.7 L, Albumin 2.9 L, Globulin 2.8, Lipase 6 L, Ethyl Alcohol < 10.1 07/11/24 18:26: POC Glucose 149 H 07/11/24 23:17: POC Glucose 97 07/12/24 05:52: WBC 4.7, RBC 2.32 L, Hgb 8.5 L, Hct 25.9 L, MCV 111.6 H, MCH 36.6 H, MCHC 32.8, RDW Std Deviation 66.2 H, RDW Coeff of [place] 16.1 H, Plt Count 161, MPV 11.4, Immature Gran % (Auto) 0.600, Neut % (Auto) 59.7, Lymph % (Auto) 26.0, [place] % (Auto) 10.5 H, Eos % (Auto) 1.7, Baso % (Auto) 1.5 H, Absolute Neuts (auto) 2.8, Absolute Lymphs (auto) 1.21, Nucleated RBC % 0, Anisocytosis 1+, Sodium 138, Potassium 4.2, Chloride 108, Carbon Dioxide 22.8, Anion Gap 7, BUN 9, Creatinine 1.12, Estim Creat Clear Calc 63.78, Est GFR (MDRD) Non-Af 75, BUN/Creatinine Ratio 8.3 L, Glucose 93, Calcium 8.1, Phosphorus 3.0, Magnesium 2.0, Total Bilirubin 0.36, AST 51 H, ALT 20, Alkaline Phosphatase 90, Total Protein 5.1 L, Albumin 2.5 L, Globulin 2.6, Albumin/Globulin Ratio 0.9 07/12/24 06:08: POC Glucose 94 Imaging Radiology Impression Abdomen/Pelvis CT 07/11/24 11:52 IMPRESSION: 1. Hepatomegaly with fatty infiltration. 2. Fecal retention in the colon consistent with constipation. 3. Umbilical hernia containing fat. 4. Bilateral pleural effusion with compressive atelectasis. [facility] Charges/Coding Visit Charges Inpatient E&M: 15249 Init Hosp L2 07/12/24 1015 <Electronically signed by Dian BALDERAS PA-C> Cosigner Signature (if applicable): CC: ALAN Wagner~ Signed [facility] Work Phone: [phone]) 811-516506-04-2025 Radiology Diagnostic study [facility]06-03-2025 History and physical note Author Melonie De La Rosa [facility] Note Date/Time July 11, 2024 3:21p m [facility] Medical Records Department [address] [place] [address] H&P Exam - Hospitalist 07/11/24 1405 MR#: [id number] Acct: [id number] Name: ANALILIA MELENDREZ Rep #:[id number] : 1960 63 From: Melonie De La Rosa DO PCP: ALAN Wilde Status:REG E R Location: ED HPI - General General Date of Admission: 07/11/24 Date of Service: 07/11/24 Chief Complaint: Suicidal ideation/nausea vomiting HPI Narrative ANALILIA MELENDREZ, is a 63 M who presented to the emergency department at [facility] on 07/11/2024 with a chief complaint of suicidal ideation and nausea and vomiting. Patient has had multiple admissions with this being his third in the last 3 weeks. He has a history of alcoholic pancreatitis as well as cirrhosis and medical noncompliance. He states he has not been compliant with his medications since his discharge on the . He has not been drinking. He did have an appointment with the counselor today who checked on him. He told the counselor that he did not want to live anymore but denied any specific suicidal or homicidal ideations. He tells me he is just in a bad way. He states he has no plan to hurt himself. He has a headache without any previous trauma. He requests by name all tramadol or morphine for this. He stated that he has also been nauseated. He indicates his last bowel movement was on Wednesday or Wednesday. He has not been having good flatus and not been able to take much in by p.o. He does not appear to be markedly dehydrated on exam. Again, he reports has not been taking his medications as he was directed at discharge. Vital signs on presentation showed a temperature of 98.1, heart rate 64, respiratory rate 19, blood pressure 145/110 and pulse ox is 97% on room air. CBCshows a normal white count with an anemia that is stable having hemoglobin of 9.3. This platelet count has normalized. His chemistry panel is overall unremarkable other than a blood glucose of 137 and he is a known diabetic. AST shows mild elevation of 53 but ALT is normal and alk phos is normal. Bilirubin is normal. Lipase was 6. His UA is not suggestive of infection. A CT of the abdomen pelvis was done due to his ongoing nausea and decreased p.o. intake and demonstrated stable bilateral pleural effusions with compressive atelectasis, hepatomegaly with fatty liver, and multiple distended small bowel loops with differential air-fluid levels measuring up to 3.4 cm concerning for ileus versuspartial small bowel obstruction, improving inflammation in the cecum and fecal retention in the colon consistent with constipation. The emergency department he was treated with IV fluids x 1 L, Tylenol, Toradol, Reglan x 1 dose and Zofran IV 4 mg x 1 dose. Given the finding of ileus versus small bowel obstruction on CT request for admission was made. The case was discussed with Dr. Fontanez prior to admission. [facility] Medical History Thrombocytopenia Chronic pancreatitis Macrocytosis associated with alcohol Ascites due to alcoholic cirrhosis Chronic diarrhea Chronic alcohol abuse Abdominal ascites MALIK (acute kidney injury) Seizures Alcoholic hepatitis Chronic pancreatitis Gastric wall thickening Alcohol dependence Anxiety Diabetes Pancreatitis Myocardial infarct Pacemaker AAA (abdominal aortic aneurysm) Admitted to alcohol detoxification center Alcohol abuse Hx of hypercholesterolemia History of diabetes mellitus Alcohol dependence Substance abuse Smoker Alcoholism Right bundle branch block (RBBB) Non-sustained ventricular tachycardia Thoracic aortic aneurysm SVT (supraventricular tachycardia) Ascending aortic dissection (~2005) Pure hypercholesterolemia Adrenal nodule Hiatal hernia Left carotid bruit Cardiac pacemaker in situ (~06/2016) Essential hypertension Pacemaker Sick sinus syndrome Tobacco use HTN (hypertension) Diabetes mellitus, type II Home Medications ?Medication ?Instructions ?Recorded ?Last Taken ?Type atorvastatin 10 mg tablet 10 mg PO DAILY CHOLESTEROL 0 10/17/20 04/19/23 History dapagliflozin propanediol 10 mg 10 mg PO DAILY DIABETE S 09/30/21 04/19/23 History tablet (Farxiga) multivitamin 1 tab PO DAILY SUPPLEMENT 11/10/21 History gabapentin 300 mg capsule 300 mg PO DAILY NEUROPATHY 1 Unknown History metformin 500 mg tablet,extended 500 mg PO BID DIABETE S 11/15/22 04/19/23 History release 24 hr L.acidophil,salivari-Bifido 2 cap PO BID #0 caps 05/19 Unknown Rx bifidum-Strep thermoph 175 mg capsule folic acid 1 mg tablet 1 mg PO DAILY@0800 supplemen t #0 05/20/23 Unknown Rx tabs insulin lispro 100 unit/mL See Protocol subcut ACHS di abetes 05/20/23 Unknown Rx subcutaneous pen (Humalog KwikPen #0 mL (U-100) Insulin) thiamine HCl (vitamin B1) 100 mg 100 mg PO DAILYCM vit padilla #0 tabs 05/20/23 Unknown Rx tablet (Vitamin B-1) pantoprazole 40 mg tablet,delayed 40 mg PO BID reflux #60 tabs 06/27/23 Unknown Rx release gfarye-tselthwx-pquloia 1 cap PO TIDCM #90 caps 06/09 03/04 Unknown Rx 24,000-76,000-120,000 unit capsule,delayed rel (Creon) ferrous sulfate 325 mg (65 mg 325 mg PO DAILY suppleme nt 06/30/24 Unknown History iron) tablet (FeroSul) furosemide 20 mg tablet 20 mg PO DAILY 30 days #30 t abs 07/06/24 Unknown Rx metoprolol succinate 25 mg 12.5 mg (1/2 x 25 mg) PO DA RASHEED 30 07/06/24 Unknown Rx tablet,extended release 24 hr days #15 tabs spironolactone 25 mg tablet 25 mg PO DAILY 30 days #30 tabs 07/06/24 Unknown Rx tramadol 50 mg tablet 50 mg PO Q8H PRN pain 3 days #9 07/06/24 Unknown Rx tabs Allergy/AdvReac Type Severity Reaction Status Date / Time No Known Allergies Allergy Verified 07/11/24 11:38 Family History Father CAD (coronary artery disease) Mother Dementia Surgical History H/O cardiac catheterization History of aortic aneurysm repair (~2017) History of cataract surgery History of hernia repair History of aortic valve replacement with bioprosthetic valve (~2017) H/O aortic valve replacement Social History household members: family housing: house Smoking Status: Current every day smoker tobacco type: cigarettes alcohol intake: current alcohol intake frequency: 0-2 drinks per day details: Reports currently ~ 2 tall boys daily. substance use type: former substance user caffeine: Yes Type: coffee Number of servings: 3 ROS Constitutional Constitutional: Denies anorexia, change in weight, chills, fatigue, fever(s), malaise, night sweats, weakness or other Eyes Eyes: Denies blurry vision, change in eye color, change in vision, discharge from eye(s), double vision, erythema, eye pain, loss of vision or other ENT HEENT: Denies abnormal hearing, dysphagia, ear pain, epistaxis, headache(s), hearing loss, nasal congestion, nasal discharge, post nasal drip, sinus pressure, sore throat or other Cardiovascular Cardiovascular: Denies chest pain, claudication, dyspnea on exertion, edema, lightheadedness, orthopnea, palpitations, paroxysmal nocturnal dyspnea, rapid heart rate, syncope or other Respiratory/Chest Respiratory/Chest: Denies cough, dyspnea, excessive phlegm production, hemoptysis, productive cough, shortness of breath at rest, shortness of breath with exertion, wheezing or other Gastrointestinal Gastrointestinal: Reports abdominal pain, constipation, nausea and other Details: No flatus Genitourinary Genitourinary: Denies burning urination, difficulty urinating, dysuria, hematuria, nocturia, urinary frequency, urinary hesitancy, urinary incontinence,urinary urgency or other Musculoskeletal Musculoskeletal: Reports back pain; Denies arthralgias, joint pain, joint stiffness, joint swelling, myalgias, neck pain or other Neurologic Neurologic: Reports paresthesias and tingling; Denies abnormal gait, abnormal speech, confusion, disequilibrium, dizziness, focal weakness, headache(s), numbness, seizure-like activity, seizures, syncope, tremor(s) or other Psychiatric Psychiatric: Reports depression; Denies anxiety, homicidal ideation, suicidal ideation or other Endocrine Endocrinology: Denies change in body appearance, cold intolerance, excessive sweating, heat intolerance, polydipsia, polyuria or other Hematologic/Lymphatic Hematologic/Lymphatic: Reports anemia and easy bruising; Denies easy bleeding, lymphadenopathy or other Allergic/Immunologic Allergic/Immunologic: Denies rhinitis, hives, eczemia, asthma or other Vital Signs Vital Signs Vital Signs: 07/11/24 11:28 07/11/24 13:27 07/11/24 13:51 Temperature 98.1 F 98.6 F Temperature Source Oral Pulse Rate 64 89 89 Respiratory Rate 19 H 18 18 Blood Pressure 145/110 H 140/100 H 140/100 H Blood Pressure Mean 121 113 113 Pulse Ox 97 99 99 Oxygen Delivery Method Room Air Weight Weight: 65.816 kg Body Mass Index (BMI) 20.2 Physical Exam Const alert, oriented x3, no apparent distress and average body habitus; Negative for healthy appearing or well nourished Constitutional Narrative: Middle-aged, white male, sitting up in bed, appears older than stated age, has just walked back from the bathroom, is holding his stomach and complaining of abdominal pain but is not bent over and able to ambulate independently, does notappear toxic General Appearance: cooperative HEENT normocephalic, head/scalp atraumatic, hearing grossly normal bilaterally and moist oral mucous membranes HEENT Narrative: Mallampati is 2, no thrush, dentition is poor Eyes Eyes Narrative: Mild pale conjunctiva bilaterally, no scleral icterus Neck supple Neck Narrative: Trachea midline, no thyroid enlargement Resp normal respiratory effort, no retractions and clear to auscultation bilaterally Resp Narrative: Diminished at bases bilaterally but otherwise clear with no adventitious sounds Auscultation: Negative for rales, rhonchi or wheezes Cardio regular rhythm, S1 normal heart sound, no rub, no gallops and no clicks; Negative for regular rate, S2 normal heart sound or no murmurs Cardio Narrative: Mildly tachycardic since returning from the bathroom, 4-6 systolic murmur loudest at right upper sternal border, soft S2 GI soft to palpation; Negative for non-tender GI Narrative: Generalized tenderness with no pinpoint tenderness, no fluid wave noted, hepatomegaly, small umbilical hernia, bowel sounds are hyperactive Extremity Extremity Narrative: Trace bilateral lower extremity edema, no cyanosis or clubbing, pedal and radialpulses are 2+ Skin skin turgor normal, no jaundice, no petechiae and no mottling Skin Narrative: Pale Neuro oriented x3, moves all extremities and no focal motor deficits Neuro Narrative: Ambulates independently without difficulty Speech: speech normal Psych Psych Narrative: Affect is flat but patient makes good eye contact and interacts with me appropriately Results Lab / Micro Data 07/11/24 12:06 07/11/24 12:06 Labs: Laboratory Results - last 24 hr 07/11/24 11:53: Urine Color Yellow, Urine Clarity Clear, Urine pH 8.0, Ur Specific [place] 1.010, Urine Protein 15 H, Urine Glucose (UA) Normal, Urine Ketones Negative, Urine Occult Blood Negative, Urine Nitrite Negative, Urine Bilirubin Negative, Urine Urobilinogen Normal, Ur Leukocyte Esterase Negative, Urine RBC 0 SEEN, Urine WBC 0 SEEN, Ur Squamous Epith Cells 0 SEEN, Urine Bacteria 0 SEEN, Urine Mucus 0 SEEN, Urine Opiates Screen NEGATIVE, U Buprenorphine Qual NEGATIVE, Ur Oxycodone Screen NEGATIVE, Urine Methadone Screen NEGATIVE, Urine Fentanyl Screen NEGATIVE, Ur Barbiturates Screen PRESUMPTIVE POSITIVE, Ur Phencyclidine Scrn NEGATIVE, Ur Amphetamines Screen NEGATIVE, U Benzodiazepines Scrn NEGATIVE, Urine Cocaine Screen NEGATIVE, U Cannabinoids Screen NEGATIVE 07/11/24 12:06: WBC 5.6, RBC 2.61 L, Hgb 9.3 L, Hct 29.1 L, MCV 111.5 H, MCH 35.6 H, MCHC 32.0, RDW Std Deviation 66.4 H, RDW Coeff of [place] 16.1 H, Plt Count 155, MPV 11.0, Immature Gran % (Auto) 0.500, Neut % (Auto) 74.9 H, Lymph % (Auto) 15.4 L, [place] % (Auto) 7.7, Eos % (Auto) 0.4, Baso % (Auto) 1.1 H, Absolute Neuts (auto) 4.2, Absolute Lymphs (auto) 0.86, Nucleated RBC % 0, Platelet Estimate A, Polychromasia RARE, Anisocytosis 1+, Sodium 140, Potassium 4.6, Chloride 103, Carbon Dioxide 28.3, Anion Gap 8, BUN 10, Creatinine 1.15, Estim Creat Clear Calc 62.80, Est GFR (MDRD) Non-Af 72, BUN/Creatinine Ratio 8.9L, Glucose 137 H, Calcium 8.3, Total Bilirubin 0.34, Direct Bilirubin 0.21, AST 53 H, ALT 23, Alkaline Phosphatase 104, Total Protein 5.7 L, Albumin 2.9 L, Globulin 2.8, Lipase 6 L, Ethyl Alcohol < 10.1 Imaging Radiology Impression Abdomen/Pelvis CT 07/11/24 11:52 IMPRESSION: 1. Hepatomegaly with fatty infiltration. 2. Fecal retention in the colon consistent with constipation. 3. Umbilical hernia containing fat. 4. Bilateral pleural effusion with compressive atelectasis. Reading Location: [facility] Assessment & Plan Assessment/Plan (1) Abdominal pain: (2) Nausea & vomiting: (3) Suicidal ideation: PLAN: Plan Acute on chronic abdominal pain secondary to ileus versus partial small bowel obstruction - CT abdomen pelvis shows developing partial small bowel obstruction versus ileus with significant constipation and stable bilateral pleural effusions - NPO with IV fluids utilizing LR at 75 cc/h for 2 L - As needed antiemetics - Reglan 5 mg IV push every 6 hours x 4 doses - Fleets enema x 4 doses every 4 hours - Daily Dulcolax suppository - Does not appear to need NG tube at this time however will monitor closely for need -Would like to avoid due to previous EGD showing gastric varices - As needed Toradol for pain would like to avoid narcotics if possible due to ileus versus bowel obstruction -Will add if Toradol not effective but would like to use sparingly - General Surgery consultation is pending and Dr. Fontanez is aware - Chronic abdominal pain is likely related to chronic alcoholic pancreatitis - Hold Creon until p.o. diet can be added Creon back home p.o. diet initiated Suicidal ideation - Patient initially came in for suicidal ideation - Will implement suicide precautions - Will need crisis consult prior to being discharged once medically stable Compensated alcoholic liver cirrhosis/hepatomegaly - Potentially has some functioning liver - no marked cirrhosis type morphology noted on imaging - No significant splenomegaly - Continue home Lasix dosing of 20 mg daily - Will utilize IV fluids to avoid dehydration while NPO - Continue home Aldactone - Recommend ongoing outpatient follow-up with gastroenterology Chronic macrocytic anemia - Baseline seems to be between 8 and 10 -Hemoglobin currently stable at 9.3 - EGD performed on 06/27/2024 and showed a normal esophagus with type I isolated gastric varices without bleeding, portal hypertensive gastropathy that was biopsied and no gross lesions in the entire duodenum -Repeat CBC in a.m. History of thrombocytopenia - Resolved CKD stage II - Serum creatinine is currently 1.15 which is within his range of normal - Continue to monitor - IV fluids as ordered DM-2 - Continue home Farxiga - Continue SSI every 6 hours while NPO - Hold oral agents other than Farxiga - N.p.o. and transition to cardiac/carb controlled once diet can be initiated - Accu-Cheks as ordered CAD/essential hypertension/hyperlipidemia/chronic HFrEF -Continue home metoprolol -Continue home Aldactone -Continue home Lasix -Hold atorvastatin -Echocardiogram was performed on 07/03/2024 and showed EF of 35 to 40% with global hypokinesis, severe concentric LVH, moderate to severe bioprosthetic aortic valve stenosis with an aortic valve area estimated at 1.1 cm? and a mean aortic valve gradient of 40.2 mmHg, trivial mitral valve regurgitation and impaired relaxation of the LV Severe aortic stenosis - Patient with history of bioprosthetic valve and previous mechanical replacement then porcine bioprosthetic replacement - Will need outpatient evaluation for repeat aortic valve replacement - Will need ALBERT and probable referral to a [facility] [place] - Outpatient follow-up here with cardiology after discharge Diabetic neuropathy - Continue home gabapentin GERD - Continue Protonix but IV p.o. twice daily - Transition to oral Protonix p.o. twice daily 40 mg once able to start p.o. intake consistently without difficulty History of alcohol abuse - patient without any current significant alcohol use -Hold thiamine and folate for now History of sick sinus syndrome - Continue home metoprolol - Previous pacemaker History of AAA/thoracic aortic aneurysm - Had thoracic dissection and was treated at [facility] History of heroin abuse - Remote - patient states he has been clean for approximately 10 years Tobacco abuse - Encouraged cessation - nicotine patch replacement available Medical noncompliance - Patient continues to be noncompliant with his medications - His last admission was related to medical noncompliance and he states has not been taking his medicines at this time either - States he does not know why when I asked him why he is not taking them - I suspect there is a component of mental health leading to this decision DVT prophylaxis -Enoxaparin 40 daily CODE STATUS - Full code Charges/Coding Visit Charges Inpatient E&M: 05779 Init Hosp L2 07/11/24 8172 <Electronically signed by Melonie De La Rosa DO> Cosigner Signature (if applicable): CC: VEHICLE MODIFICATION TECHNICIAN-C Marianna Wagner; Dr. Melonie De La Rosa DO~ Signed [facility] Work Phone: [phone] 539-191906-03-2025 Discharge summary Author Perez Ribeiro [facility] Note Date/Time July 11, 2024 2:09p m [facility] Medical Records Department [address] [place] [address] Emergency Department Summary 07/11/24 MR#: [id number] Acct: [id number] Name: ANALILIA MELENDREZ Rep #:[id number] : 1960 63 From: Perez Ribeiro DO PCP: ALAN Wilde Status:REG E R Location: ED HPI History of Present Illness Chief Complaint: Mental Health Narrative Narrative: Patient is a 63-year-old male with past medical history of thrombocytopenia, seizures, anxiety, diabetes, AAA, right bundle branch block, history of alcohol abuse states that he does not drink in a very long time,, hypertension who presented to the emergency department via counselor that checked on him earlier today. He told the counselor that he does not want to live anymore but denies suicidal homicidal ideations. Patient states he has no plan to hurt himself he just does not know what is going on with his head right now he states that he feels like he is in a bad spot. He states that he does have a headache but denies any head injuries or trauma is requesting medication for this. Patient states that he has also been very nauseous lately. [facility] Medical History Thrombocytopenia Chronic pancreatitis Macrocytosis associated with alcohol Ascites due to alcoholic cirrhosis Chronic diarrhea Chronic alcohol abuse Abdominal ascites MALIK (acute kidney injury) Seizures Alcoholic hepatitis Chronic pancreatitis Gastric wall thickening Alcohol dependence Anxiety Diabetes Pancreatitis Myocardial infarct Pacemaker AAA (abdominal aortic aneurysm) Admitted to alcohol detoxification center Alcohol abuse Hx of hypercholesterolemia History of diabetes mellitus Alcohol dependence Substance abuse Smoker Alcoholism Right bundle branch block (RBBB) Non-sustained ventricular tachycardia Thoracic aortic aneurysm SVT (supraventricular tachycardia) Ascending aortic dissection (~2005) Pure hypercholesterolemia Adrenal nodule Hiatal hernia Left carotid bruit Cardiac pacemaker in situ (~06/2016) Essential hypertension Pacemaker Sick sinus syndrome Tobacco use HTN (hypertension) Diabetes mellitus, type II Home Medications ?Medication ?Instructions ?Recorded ?Last Taken ?Type atorvastatin 10 mg tablet 10 mg PO DAILY CHOLESTEROL 0 10/17/20 04/19/23 History dapagliflozin propanediol 10 mg 10 mg PO DAILY DIABETE S 09/30/21 04/19/23 History tablet (Farxiga) multivitamin 1 tab PO DAILY SUPPLEMENT 11/10/21 History gabapentin 300 mg capsule 300 mg PO DAILY NEUROPATHY 1 Unknown History metformin 500 mg tablet,extended 500 mg PO BID DIABETE S 11/15/22 04/19/23 History release 24 hr L.acidophil,salivari-Bifido 2 cap PO BID #0 caps 05/19 Unknown Rx bifidum-Strep thermoph 175 mg capsule folic acid 1 mg tablet 1 mg PO DAILY@0800 supplemen t #0 05/20/23 Unknown Rx tabs insulin lispro 100 unit/mL See Protocol subcut ACHS di abetes 05/20/23 Unknown Rx subcutaneous pen (Humalog KwikPen #0 mL (U-100) Insulin) thiamine HCl (vitamin B1) 100 mg 100 mg PO DAILYCM vit padilla #0 tabs 05/20/23 Unknown Rx tablet (Vitamin B-1) pantoprazole 40 mg tablet,delayed 40 mg PO BID reflux #60 tabs 06/27/23 Unknown Rx release gaexbr-hpdpxxym-oypicpl 1 cap PO TIDCM #90 caps 06/09 03/04 Unknown Rx 24,000-76,000-120,000 unit capsule,delayed rel (Creon) ferrous sulfate 325 mg (65 mg 325 mg PO DAILY suppleme nt 06/30/24 Unknown History iron) tablet (FeroSul) furosemide 20 mg tablet 20 mg PO DAILY 30 days #30 t abs 07/06/24 Unknown Rx metoprolol succinate 25 mg 12.5 mg (1/2 x 25 mg) PO DA RASHEED 30 07/06/24 Unknown Rx tablet,extended release 24 hr days #15 tabs spironolactone 25 mg tablet 25 mg PO DAILY 30 days #30 tabs 07/06/24 Unknown Rx tramadol 50 mg tablet 50 mg PO Q8H PRN pain 3 days #9 07/06/24 Unknown Rx tabs Allergy/AdvReac Type Severity Reaction Status Date / Time No Known Allergies Allergy Verified 07/11/24 11:38 Family History Father CAD (coronary artery disease) Mother Dementia Surgical History H/O cardiac catheterization History of aortic aneurysm repair (~2017) History of cataract surgery History of hernia repair History of aortic valve replacement with bioprosthetic valve (~2017) H/O aortic valve replacement Social History household members: family housing: house Smoking Status: Current every day smoker tobacco type: cigarettes alcohol intake: current alcohol intake frequency: 0-2 drinks per day details: Reports currently ~ 2 tall boys daily. substance use type: former substance user caffeine: Yes Type: coffee Number of servings: 3 ROS ROS ED ROS Narrative Constitutional: Denies fevers, chills, headaches Eyes: Denies change in vision double vision blurry vision Cardiovascular: Denies chest pain Respiratory: Denies coughing wheezing shortness of breath Abdomen: Complains of nausea as noted above denies vomiting or diarrhea denies any abdominal pain : Denies any urinary symptoms Neurological: Denies numbness, weakness, tingling Musculoskeletal: Denies back pain Skin: Denies rashes or lesions EXAM Physical Exam Narrative Exam Narrative: General: Patient lying in bed rest comfortably did not appear to be acute distress Head: Atraumatic, normocephalic Eyes: PERRL bilaterally, EOMI bilaterally, no conjunctival injection noted Neck: Soft, supple, trachea midline Cardiovascular: Regular rate and rhythm Respiratory: Clear to auscultation bilaterally no wheezing noted Abdomen: Soft, nondistended, tenderness to palpation in the right upper quadrantin the epigastric region no rebound or guarding on exam Extremities: +5/5 strength noted in the bilateral upper and lower extremities Neurological: Patient following commands knew that he was at [facility] the year is 2024 Skin: Warm, dry, intact no rashes or lesions noted Const Vital Signs: 07/11/24 11:28 07/11/24 13:27 07/11/24 13:51 Temperature 98.1 F 98.6 F Temperature Source Oral Pulse Rate 64 89 89 Respiratory Rate 19 H 18 18 Blood Pressure 145/110 H 140/100 H 140/100 H Blood Pressure Mean 121 113 113 Pulse Ox 97 99 99 Oxygen Delivery Method Room Air MDM MDM MDM Narrative Medical decision making narrative: Patient is a 63-year-old male who presented to the emergency department the chief complaint of being in a bad place in his head he will have a workup performed here on the differential diagnose includes but not limited to electrolyte abnormalities, pancreatitis, cholecystitis, depression, anxiety. Once workup is obtained reviewed he will be reevaluated. Patient be given a gram of Tylenol and Zofran. Patient CBC was reviewed showed no evidence leukocytosis white blood count normal 5.6, hemogram 0.3, platelet count was 155. Patient sodium is 140, potassium normal 4.6, creatinine is 1.15. Patient's AST and ALT are 53 and 23 respectively, lipase of 6. Patient's urinalysis reviewed showed no evidence of infection. Patient's CT abdomen pelvis with IV contrast showed hepatomegaly with fatty infiltration. He has a partial small bowel obstruction with persistent nausea and abdominal pain, fecal retention in the colon consistent with constipation. Umbilical hernia containing fat bilateral pleural effusions with compressive atelectasis. Will discuss case with hospitalist for admission for his partial bowel obstruction, nausea and abdominal pain. Patient will also require psychiatric evaluation once medically cleared Discussed case with hospitalist Dr. De La Rosa who is recommending discussion with Dr. Fontanez Discussed case with Dr. Fontanez who reviewed the CT abdomen pelvis and states thatit is hard to fully delineate whether this is a ileus versus partial bowel obstruction. I reach back out to Dr. De La Rosa who will accept patient for admission. Patient is still complaining of headache therefore he will be given Reglan for his headache. He is agreeable this plan all question concerns answered Lab Data Labs: Laboratory Results - last 24 hr 07/11/24 07/11/24 11:53 12:06 WBC 5.6 RBC 2.61 L Hgb 9.3 L Hct 29.1 L MCV 111.5 H MCH 35.6 H MCHC 32.0 RDW Std Deviation 66.4 H RDW Coeff of Kalpana 16.1 H Plt Count 155 MPV 11.0 Immature Gran % (Auto) 0.500 Neut % (Auto) 74.9 H Lymph % (Auto) 15.4 L Erath % (Auto) 7.7 Eos % (Auto) 0.4 Baso % (Auto) 1.1 H Absolute Neuts (auto) 4.2 Absolute Lymphs (auto) 0.86 Nucleated RBC % 0 Platelet Estimate A Polychromasia RARE Anisocytosis 1+ Sodium 140 Potassium 4.6 Chloride 103 Carbon Dioxide 28.3 Anion Gap 8 BUN 10 Creatinine 1.15 Estim Creat Clear Calc 62.80 Est GFR (MDRD) Non-Af 72 BUN/Creatinine Ratio 8.9 L Glucose 137 H Calcium 8.3 Total Bilirubin 0.34 Direct Bilirubin 0.21 AST 53 H ALT 23 Alkaline Phosphatase 104 Total Protein 5.7 L Albumin 2.9 L Globulin 2.8 Lipase 6 L Urine Color Yellow Urine Clarity Clear Urine pH 8.0 Ur Specific [place] 1.010 Urine Protein 15 H Urine Glucose (UA) Normal Urine Ketones Negative Urine Occult Blood Negative Urine Nitrite Negative Urine Bilirubin Negative Urine Urobilinogen Normal Ur Leukocyte Esterase Negative Urine RBC 0 SEEN Urine WBC 0 SEEN Ur Squamous Epith Cells 0 SEEN Urine Bacteria 0 SEEN Urine Mucus 0 SEEN Urine Opiates Screen NEGATIVE U Buprenorphine Qual NEGATIVE Ur Oxycodone Screen NEGATIVE Urine Methadone Screen NEGATIVE Urine Fentanyl Screen NEGATIVE Ur Barbiturates Screen PRESUMPTIVE POSITIVE Ur Phencyclidine Scrn NEGATIVE Ur Amphetamines Screen NEGATIVE U Benzodiazepines Scrn NEGATIVE Urine Cocaine Screen NEGATIVE U Cannabinoids Screen NEGATIVE Ethyl Alcohol < 10.1 Radiography Diagnostic Testing: Clinical Impression(s) from Imaging Studies Abdomen/Pelvis CT 07/11/24 11:52 IMPRESSION: 1. Hepatomegaly with fatty infiltration. 2. Fecal retention in the colon consistent with constipation. 3. Umbilical hernia containing fat. 4. Bilateral pleural effusion with compressive atelectasis. Reading Location: [facility] Discharge Plan Triage Chief Complaint: Mental Health ED Provider: Perez Ribeiro Dx/Rx/DC Orders Clinical Impression: Partial bowel obstruction, Nausea, Abdominal pain, Headache Prescriptions: No Action atorvastatin 10 mg tablet 10 mg PO DAILY dapagliflozin propanediol [Farxiga] 10 mg Tablet 10 mg PO DAILY multivitamin Tablet 1 tab PO DAILY gabapentin 300 mg Capsule 300 mg PO DAILY metformin 500 mg tablet extended release 24 hr 500 mg PO BID Patient Comments: PT STATES THEY TAKE THIS ONCE DAILY. pantoprazole 40 mg tablet,delayed release (DR/EC) 40 mg PO BID Qty: 60 0RF Creon 24,000-76,000 -120,000 unit Capsule,Delayed Release(Dr/Ec) 1 cap PO TIDCM Qty: 90 1RF thiamine HCl (vitamin B1) [Vitamin B-1] 100 mg Tablet 100 mg PO DAILYCM Qty: 0 0RF L.acidoph,saliva-B.bif-S.therm 175 mg Capsule 2 cap PO BID Qty: 0 0RF folic acid 1 mg Tablet 1 mg PO DAILY@0800 Qty: 0 0RF insulin lispro [Humalog KwikPen Insulin] 100 unit/mL Insulin Pen See Protocol subcut ACHS Qty: 0 0RF Protocol: 4. Sliding Scale Insulin High-Med Dosing Condition: 150-199 mg/dl = 2 units Condition: 200-259 mg/dl = 4 units Condition: 260-324 mg/dl = 6 units Condition: 325-374 mg/dl = 8 units Condition: 375-409 mg/dl = 10 units Condition: 410-449 mg/dl = 11 units Condition: Greater than 449 call physician Protocol Text: - Use for Total Daily Dose of Insulin 56-80 units - Patient who are insulin resistant or septic HIGH MEDIUM DOSING ALGORITHM ferrous sulfate [FeroSul] 325 mg (65 mg iron) tablet 325 mg PO DAILY furosemide 20 mg Tablet 20 mg PO DAILY 30 Days Qty: 30 2RF metoprolol succinate 25 mg Tablet Extended Release 24 Hr 12.5 mg PO DAILY 30 Days Qty: 15 2RF spironolactone 25 mg Tablet 25 mg PO DAILY 30 Days Qty: 30 2RF tramadol 50 mg tablet 50 mg PO Q8H PRN (Reason: pain) 3 Days Qty: 9 0RF Primary Care Provider: Marianna Wagner NP Referrals: Marianna Wagner NP, VEHICLE MODIFICATION TECHNICIAN-C [Primary Care Provider] - Print Language: Pakistani Disposition Disposition: Acute Care Hospital [facility] What to do if you have Problems For any increased pain, shortness of breath, bleeding, nausea or vomiting, chestpain, or any unexpected problems, contact your Primary Care Provider. Call [facility] ([phone]) or report to the closest Emergency Room. Call 911 if necessary. 07/11/24 1408 <Electronically signed by Perez Ribeiro DO> Cosigner Signature (if applicable): CC: SUSAN-Stephen Wagner ~ Signed [facility] Work Phone: [phone] 409-945806-03-2025 Discharge summary Author Perez Ribeiro [facility] Note Date/Time July 11, 2024 2:09p m [facility] Medical Records Department [address] [place] [address] Emergency Department Summary 07/11/24 MR#: [id number] Acct: [id number] Name: ANALILIA MELENDREZ Rep #:[id number] : 1960 63 From: Perez Ribeiro DO PCP: Marianna Wagner NP-C Status:REG E R Location: ED HPI History of Present Illness Chief Complaint: Mental Health Narrative Narrative: Patient is a 63-year-old male with past medical history of thrombocytopenia, seizures, anxiety, diabetes, AAA, right bundle branch block, history of alcohol abuse states that he does not drink in a very long time,, hypertension who presented to the emergency department via counselor that checked on him earlier today. He told the counselor that he does not want to live anymore but denies suicidal homicidal ideations. Patient states he has no plan to hurt himself he just does not know what is going on with his head right now he states that he feels like he is in a bad spot. He states that he does have a headache but denies any head injuries or trauma is requesting medication for this. Patient states that he has also been very nauseous lately. [facility] Medical History Thrombocytopenia Chronic pancreatitis Macrocytosis associated with alcohol Ascites due to alcoholic cirrhosis Chronic diarrhea Chronic alcohol abuse Abdominal ascites MALIK (acute kidney injury) Seizures Alcoholic hepatitis Chronic pancreatitis Gastric wall thickening Alcohol dependence Anxiety Diabetes Pancreatitis Myocardial infarct Pacemaker AAA (abdominal aortic aneurysm) Admitted to alcohol detoxification center Alcohol abuse Hx of hypercholesterolemia History of diabetes mellitus Alcohol dependence Substance abuse Smoker Alcoholism Right bundle branch block (RBBB) Non-sustained ventricular tachycardia Thoracic aortic aneurysm SVT (supraventricular tachycardia) Ascending aortic dissection (~2005) Pure hypercholesterolemia Adrenal nodule Hiatal hernia Left carotid bruit Cardiac pacemaker in situ (~06/2016) Essential hypertension Pacemaker Sick sinus syndrome Tobacco use HTN (hypertension) Diabetes mellitus, type II Home Medications ?Medication ?Instructions ?Recorded ?Last Taken ?Type atorvastatin 10 mg tablet 10 mg PO DAILY CHOLESTEROL 0 10/17/20 04/19/23 History dapagliflozin propanediol 10 mg 10 mg PO DAILY DIABETE S 09/30/21 04/19/23 History tablet (Farxiga) multivitamin 1 tab PO DAILY SUPPLEMENT 11/10/21 History gabapentin 300 mg capsule 300 mg PO DAILY NEUROPATHY 1 Unknown History metformin 500 mg tablet,extended 500 mg PO BID DIABETE S 11/15/22 04/19/23 History release 24 hr L.acidophil,salivari-Bifido 2 cap PO BID #0 caps 05/19 Unknown Rx bifidum-Strep thermoph 175 mg capsule folic acid 1 mg tablet 1 mg PO DAILY@0800 supplemen t #0 05/20/23 Unknown Rx tabs insulin lispro 100 unit/mL See Protocol subcut ACHS di abetes 05/20/23 Unknown Rx subcutaneous pen (Humalog KwikPen #0 mL (U-100) Insulin) thiamine HCl (vitamin B1) 100 mg 100 mg PO DAILYCM vit padilla #0 tabs 05/20/23 Unknown Rx tablet (Vitamin B-1) pantoprazole 40 mg tablet,delayed 40 mg PO BID reflux #60 tabs 06/27/23 Unknown Rx release fplxsw-hzoxcgxt-raytbxz 1 cap PO TIDCM #90 caps 06/09 03/04 Unknown Rx 24,000-76,000-120,000 unit capsule,delayed rel (Creon) ferrous sulfate 325 mg (65 mg 325 mg PO DAILY suppleme nt 06/30/24 Unknown History iron) tablet (FeroSul) furosemide 20 mg tablet 20 mg PO DAILY 30 days #30 t abs 07/06/24 Unknown Rx metoprolol succinate 25 mg 12.5 mg (1/2 x 25 mg) PO DA RASHEED 30 07/06/24 Unknown Rx tablet,extended release 24 hr days #15 tabs spironolactone 25 mg tablet 25 mg PO DAILY 30 days #30 tabs 07/06/24 Unknown Rx tramadol 50 mg tablet 50 mg PO Q8H PRN pain 3 days #9 07/06/24 Unknown Rx tabs Allergy/AdvReac Type Severity Reaction Status Date / Time No Known Allergies Allergy Verified 07/11/24 11:38 Family History Father CAD (coronary artery disease) Mother Dementia Surgical History H/O cardiac catheterization History of aortic aneurysm repair (~2017) History of cataract surgery History of hernia repair History of aortic valve replacement with bioprosthetic valve (~2016) H/O aortic valve replacement Social History household members: family housing: house Smoking Status: Current every day smoker tobacco type: cigarettes alcohol intake: current alcohol intake frequency: 0-2 drinks per day details: Reports currently ~ 2 tall boys daily. substance use type: former substance user caffeine: Yes Type: coffee Number of servings: 3 ROS ROS ED ROS Narrative Constitutional: Denies fevers, chills, headaches Eyes: Denies change in vision double vision blurry vision Cardiovascular: Denies chest pain Respiratory: Denies coughing wheezing shortness of breath Abdomen: Complains of nausea as noted above denies vomiting or diarrhea denies any abdominal pain : Denies any urinary symptoms Neurological: Denies numbness, weakness, tingling Musculoskeletal: Denies back pain Skin: Denies rashes or lesions EXAM Physical Exam Narrative Exam Narrative: General: Patient lying in bed rest comfortably did not appear to be acute distress Head: Atraumatic, normocephalic Eyes: PERRL bilaterally, EOMI bilaterally, no conjunctival injection noted Neck: Soft, supple, trachea midline Cardiovascular: Regular rate and rhythm Respiratory: Clear to auscultation bilaterally no wheezing noted Abdomen: Soft, nondistended, tenderness to palpation in the right upper quadrantin the epigastric region no rebound or guarding on exam Extremities: +5/5 strength noted in the bilateral upper and lower extremities Neurological: Patient following commands knew that he was at [facility] the year is 2024 Skin: Warm, dry, intact no rashes or lesions noted Const Vital Signs: 07/11/24 11:28 07/11/24 13:27 07/11/24 13:51 Temperature 98.1 F 98.6 F Temperature Source Oral Pulse Rate 64 89 89 Respiratory Rate 19 H 18 18 Blood Pressure 145/110 H 140/100 H 140/100 H Blood Pressure Mean 121 113 113 Pulse Ox 97 99 99 Oxygen Delivery Method Room Air MDM MDM MDM Narrative Medical decision making narrative: Patient is a 63-year-old male who presented to the emergency department the chief complaint of being in a bad place in his head he will have a workup performed here on the differential diagnose includes but not limited to electrolyte abnormalities, pancreatitis, cholecystitis, depression, anxiety. Once workup is obtained reviewed he will be reevaluated. Patient be given a gram of Tylenol and Zofran. Patient CBC was reviewed showed no evidence leukocytosis white blood count normal 5.6, hemogram 0.3, platelet count was 155. Patient sodium is 140, potassium normal 4.6, creatinine is 1.15. Patient's AST and ALT are 53 and 23 respectively, lipase of 6. Patient's urinalysis reviewed showed no evidence of infection. Patient's CT abdomen pelvis with IV contrast showed hepatomegaly with fatty infiltration. He has a partial small bowel obstruction with persistent nausea and abdominal pain, fecal retention in the colon consistent with constipation. Umbilical hernia containing fat bilateral pleural effusions with compressive atelectasis. Will discuss case with hospitalist for admission for his partial bowel obstruction, nausea and abdominal pain. Patient will also require psychiatric evaluation once medically cleared Discussed case with hospitalist Dr. De La Rosa who is recommending discussion with Dr. Fontanez Discussed case with Dr. Fontanez who reviewed the CT abdomen pelvis and states thatit is hard to fully delineate whether this is a ileus versus partial bowel obstruction. I reach back out to Dr. De La Rosa who will accept patient for admission. Patient is still complaining of headache therefore he will be given Reglan for his headache. He is agreeable this plan all question concerns answered Lab Data Labs: Laboratory Results - last 24 hr 07/11/24 07/11/24 11:53 12:06 WBC 5.6 RBC 2.61 L Hgb 9.3 L Hct 29.1 L MCV 111.5 H MCH 35.6 H MCHC 32.0 RDW Std Deviation 66.4 H RDW Coeff of Kalpana 16.1 H Plt Count 155 MPV 11.0 Immature Gran % (Auto) 0.500 Neut % (Auto) 74.9 H Lymph % (Auto) 15.4 L [place] % (Auto) 7.7 Eos % (Auto) 0.4 Baso % (Auto) 1.1 H Absolute Neuts (auto) 4.2 Absolute Lymphs (auto) 0.86 Nucleated RBC % 0 Platelet Estimate A Polychromasia RARE Anisocytosis 1+ Sodium 140 Potassium 4.6 Chloride 103 Carbon Dioxide 28.3 Anion Gap 8 BUN 10 Creatinine 1.15 Estim Creat Clear Calc 62.80 Est GFR (MDRD) Non-Af 72 BUN/Creatinine Ratio 8.9 L Glucose 137 H Calcium 8.3 Total Bilirubin 0.34 Direct Bilirubin 0.21 AST 53 H ALT 23 Alkaline Phosphatase 104 Total Protein 5.7 L Albumin 2.9 L Globulin 2.8 Lipase 6 L Urine Color Yellow Urine Clarity Clear Urine pH 8.0 Ur Specific [place] 1.010 Urine Protein 15 H Urine Glucose (UA) Normal Urine Ketones Negative Urine Occult Blood Negative Urine Nitrite Negative Urine Bilirubin Negative Urine Urobilinogen Normal Ur Leukocyte Esterase Negative Urine RBC 0 SEEN Urine WBC 0 SEEN Ur Squamous Epith Cells 0 SEEN Urine Bacteria 0 SEEN Urine Mucus 0 SEEN Urine Opiates Screen NEGATIVE U Buprenorphine Qual NEGATIVE Ur Oxycodone Screen NEGATIVE Urine Methadone Screen NEGATIVE Urine Fentanyl Screen NEGATIVE Ur Barbiturates Screen PRESUMPTIVE POSITIVE Ur Phencyclidine Scrn NEGATIVE Ur Amphetamines Screen NEGATIVE U Benzodiazepines Scrn NEGATIVE Urine Cocaine Screen NEGATIVE U Cannabinoids Screen NEGATIVE Ethyl Alcohol < 10.1 Radiography Diagnostic Testing: Clinical Impression(s) from Imaging Studies Abdomen/Pelvis CT 07/11/24 11:52 IMPRESSION: 1. Hepatomegaly with fatty infiltration. 2. Fecal retention in the colon consistent with constipation. 3. Umbilical hernia containing fat. 4. Bilateral pleural effusion with compressive atelectasis. Reading Location: [facility] Discharge Plan Triage Chief Complaint: Mental Health ED Provider: Perez Ribeiro Dx/Rx/DC Orders Clinical Impression: Partial bowel obstruction, Nausea, Abdominal pain, Headache Prescriptions: No Action atorvastatin 10 mg tablet 10 mg PO DAILY dapagliflozin propanediol [Farxiga] 10 mg Tablet 10 mg PO DAILY multivitamin Tablet 1 tab PO DAILY gabapentin 300 mg Capsule 300 mg PO DAILY metformin 500 mg tablet extended release 24 hr 500 mg PO BID Patient Comments: PT STATES THEY TAKE THIS ONCE DAILY. pantoprazole 40 mg tablet,delayed release (DR/EC) 40 mg PO BID Qty: 60 0RF Creon 24,000-76,000 -120,000 unit Capsule,Delayed Release(Dr/Ec) 1 cap PO TIDCM Qty: 90 1RF thiamine HCl (vitamin B1) [Vitamin B-1] 100 mg Tablet 100 mg PO DAILYCM Qty: 0 0RF L.acidoph,saliva-B.bif-S.therm 175 mg Capsule 2 cap PO BID Qty: 0 0RF folic acid 1 mg Tablet 1 mg PO DAILY@0800 Qty: 0 0RF insulin lispro [Humalog KwikPen Insulin] 100 unit/mL Insulin Pen See Protocol subcut ACHS Qty: 0 0RF Protocol: 4. Sliding Scale Insulin High-Med Dosing Condition: 150-199 mg/dl = 2 units Condition: 200-259 mg/dl = 4 units Condition: 260-324 mg/dl = 6 units Condition: 325-374 mg/dl = 8 units Condition: 375-409 mg/dl = 10 units Condition: 410-449 mg/dl = 11 units Condition: Greater than 449 call physician Protocol Text: - Use for Total Daily Dose of Insulin 56-80 units - Patient who are insulin resistant or septic HIGH MEDIUM DOSING ALGORITHM ferrous sulfate [FeroSul] 325 mg (65 mg iron) tablet 325 mg PO DAILY furosemide 20 mg Tablet 20 mg PO DAILY 30 Days Qty: 30 2RF metoprolol succinate 25 mg Tablet Extended Release 24 Hr 12.5 mg PO DAILY 30 Days Qty: 15 2RF spironolactone 25 mg Tablet 25 mg PO DAILY 30 Days Qty: 30 2RF tramadol 50 mg tablet 50 mg PO Q8H PRN (Reason: pain) 3 Days Qty: 9 0RF Primary Care Provider: Marianna Wagner NP Referrals: Marianna Wagner NP, VEHICLE MODIFICATION TECHNICIAN-C [Primary Care Provider] - Print Language: Pakistani Disposition Disposition: Acute Care Hospital [facility] What to do if you have Problems For any increased pain, shortness of breath, bleeding, nausea or vomiting, chestpain, or any unexpected problems, contact your Primary Care Provider. Call [facility] ([phone]) or report to the closest Emergency Room. Call 911 if necessary. 07/11/24 1409 <Electronically signed by Perez Ribeiro DO> Cosigner Signature (if applicable): CC: VEHICLE MODIFICATION TECHNICIANAstrid Wagner ~ Signed [facility] Work Phone: 1(699) 408-800906-03-2025 Radiology Diagnostic study [facility]06-03-2025 NoteHNO ID: [id number] Author: RADHA ETIENNE RN Service: ? Author Type: Registered Nurse Type: Progress Notes Filed: 07/11/2024 12:49 Note Text: AG TRANSITIONAL CARE MANAGEMENT (TCM) FOLLOW-UP NOTE Patient identified by name and date of : YES Diagnosis: CHF Summary: TCM RN called for TCM f/u (D/C 07/06/24). Pt isn't home at this time. Health leads screening tool questions performed? Addressed 07/07/24 N/A Concerns: N/A Three Dimensional Art Instructor plan for next outreach: Will follow-up next wk. Signature: [facility] RN [facility] 11[facility] History of Present illness Narrative* Radha Etienne RN - 07/11/2024 12:34 PM EDT AG TRANSITIONAL CARE MANAGEMENT (TCM) FOLLOW-UP NOTE Patient identified by name and date of : YES Diagnosis: CHF Summary: YAZMIN RN called for TCM f/u (D/C 07/06/24). Pt isn't home at this time. Health leads screening tool questions performed? Addressed 07/07/24 N/A Concerns: N/A Three Dimensional Art Instructor plan for next outreach: Will follow-up next wk. Signature: Radha Etienne RN July 11, 2024 [facility] NotePatient Outreach (AGACM) ANALILIA MELENDREZ ([id number]) 1960 M Date Time Provider Department 07/11/24 RADHA ETIENNE [facility] During your visit today, we recorded the following information about you: Radha Etienne RN 07/11/2024 12:49 PM Signed AG TRANSITIONAL CARE MANAGEMENT (TCM) FOLLOW-UP NOTE Patient identified by name and date of : YES Diagnosis: CHF Summary: YAZMIN RN called for TCM f/u (D/C 07/06/24). Pt isn't home at this time. Health leads screening tool questions performed? Addressed 07/07/24 N/A Concerns: N/A Three Dimensional Art Instructor plan for next outreach: Will follow-up next wk. Signature: Radha Etienne RN July 11, 2024 Allergies As of Date: 07/11/2024 (No Known Allergies) Date Reviewed: 04/12/2024 Reviewed by: Vandana Edwards - Fully Assessed Reason for Visit: Transition Of Care [4074] Cmt: TCM f/u Prescriptions as of 07/11/2024 - traMADol (ULTRAM) 50 mg tablet Take 50 mg by mouth every 8 hours as needed for pain. - UNIFINE PENTIPS 31 gauge x 3/16 USE 3 TIMES DAILY - metoprolol tartrate, short acting, (LOPRESSOR) 50 mg tablet TAKE ONE TABLET BY MOUTH TWICE A DAY - pantoprazole DR (PROTONIX) 40 mg tablet TAKE ONE TABLET BY MOUTH TWICE A DAY 3O MINUTES BEFORE MEAL - ramipril (ALTACE) 10 mg capsule TAKE ONE CAPSULE BY MOUTH EVERY DAY - atorvastatin (LIPITOR) 40 mg tablet TAKE ONE TABLET BY MOUTH EVERY DAY - insulin glargine 100 unit/mL (3 mL) Inject 15 Units subcutaneously once daily. - metFORMIN ER (GLUCOPHAGE XR) 500 mg 24 hr tablet Take 2 tablets by mouth daily with breakfast. - FARXIGA 10 mg tablet Take 1 tablet by mouth daily with breakfast. - ferrous sulfate (FEROSUL) 325 mg (65 mg iron) tablet TAKE ONE TABLET BY MOUTH EVERY DAY - Blood-Glucose Sensor (FREESTYLE MANGO 3 SENSOR) daniel Apply new sensor every fourteen (14) days to upper arm. - dkisfk-blnjpzai-bdcbxwx (CREON 36) 36,000-114,000- 180,000 unit delayed release capsule Take 2 pills by mouth with first bite of meal and take 1 pill with snacks. Max 10 per day. - Cholecalciferol, Vitamin D3, (VITAMIN D-3) 50 mcg (2,000 unit) cap Take 1 capsule by mouth once daily. - Blood-Glucose Meter,Continuous (FREESTYLE MANGO 3 READER) [facility] Use to check blood sugar at least four (4) times daily. - dicyclomine (BENTYL) 10 mg capsule Take 1 capsule by mouth before meals and at bedtime. - MULTIVITAMIN ORAL Take 1 tablet by mouth once daily. Problem List As Of Date 07/11/2024 Noted Resolved SUMMARY 03/09/2016 Acute thoracic aortic dissection (HCC) [I71.019]03/09/2016 Primary hypertension [I10] 03/09/2016 History of IVDU (intravenous drug user) [F19.90]03/09/2016 Smoking greater than 10 pack years [F17.210] 03/09/2016 History of depression [Z86.59] 03/09/2016 Type 2 diabetes mellitus with complication, wit*03/09/2016 Alcohol-induced chronic pancreatitis (HCC) [K86*03/09/2016 History of ruptured aneurysm of thoracic aorta *03/09/2016 03/10/2016 Acute headache [R51.9] 03/09/2016 History of alcohol abuse [F10.11] 03/09/2016 History of dissection of thoracic aorta [Z86.79]03/10/2016 Preop testing [Z01.818] 03/16/2016 03/20/2016 Cardiac insufficiency (HCC) [I50.9] 03/19/2016 03/26/2016 Postoperative hypotension [I95.81] 03/19/2016 03/21/2016 Pain, postoperative, acute [G89.18] 03/19/2016 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] 03/20/2016 03/26/2016 Acute respiratory failure with hypoxia (HCC) [J*03/21/2016 03/26/2016 Fluid overload [E87.70] 03/21/2016 03/22/2016 Hypoxemia [R09.02] 03/23/2016 03/26/2016 Discharge planning issues [Z75.8] 03/26/2016 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] Pacemaker [Z95.0] Adrenal nodule (HCC) [E27.9] 08/09/2023 Acute kidney failure, unspecified (HCC) [N17.9] 01/03/2017 Anemia in CKD (chronic kidney disease) [N18.9, *08/09/2023 Aortic aneurysm (HCC) [I71.9] 08/09/2023 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 Chronic pancreatitis (HCC) [K86.1] 08/09/2023 Calcium deficiency [E58] 08/09/2023 Cirrhosis of liver (HCC) [K74.60] 08/09/2023 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*08/09/2023 Cognitive communication deficit [R41.841] 05/21/2023 Depression [F32.A] 08/09/2023 Elevated liver enzymes [R74.8] 08/09/2023 GERD (gastroesophageal reflux disease) [K21.9] 08/09/2023 Hiatal hernia [K44.9] 08/09/2023 History of aortic valve replacement [Z95.2] 08/09/2023 Hepatic steatosis [K76.0] 08/09/2023 History of kidney stones [Z87.442] 08/09/2023 History of pacemaker [Z95.0] 08/09/2023 History of TIA (transient ischemic attack) [Z86*08/09/2023 Hyperlipidemia LDL goal <100 [E78.5] 08/09/2023 Hyperosmolar non-ketotic state in patient with *08/09/2023 Insomnia, unspecified [G47.00] 05/22/2023 Left ventricular hypertrophy [I51.7] 08/09/2023 Nicotine dependence, unspecified, uncomplicated*01/03/2017 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] 05/19 (more content not included)...[facility]05-30-2025 NoteHNO ID: [id number] Author: RADHA ETIENNE RN Service: ? Author Type: Registered Nurse Type: Progress Notes Filed: 07/07/2024 11:25 Note Text: TRANSITIONAL CARE MANAGEMENT (TCM) COMMUNITY MONITORING PROGRAM [facility] SUMMARY: Pt discharged from [facility] on 07/06/24. Admitted for: CHF Non-compliance Patient seen Inpatient TONY Visit? N/A. Patient seen ICARE Program? N/A. Contact made with patient: Yes Hi my name is Radha Etienne RN and I am calling from the [facility] on behalf of your PCP, Marianna Wagner APRN.SPLUNK D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 I understand you were recently in the hospital so I am calling to check in with you to ensure you are feeling well now that you?re home. Do you mind if I ask you a few questions related to your hospital stay and well-being Yes Contact with patient post discharge, spoke to patient. Patient identified by name and . Do you feel your health is BETTER, WORSE, or the SAME since leaving the hospital? Better ACTION TAKEN: Patient indicated symptoms are better or same, no action required. Continue outreach. CHF : Does patient have and appointment at the Heart Failure Clinic? No - Referral HF Clinic: No - Pt declined MEDICATIONS: Many patients have questions or concerns about their medications once they are home. Do you have any questions about taking your medications or which medication you should be on? No Do you need any medication refills at this time, including any of the medications you might take only when needed? No ACTION TAKEN: No action required For RNs or Pharmacy completing outreach ONLY, was a medication review completed? No - Pt declined to review his meds. SOCIAL: We would like to make sure you have what you need so that your basics needs are met - including your personal safety. HEALTH LEADS SCREENING TOOL QUESTIONS: Do you often feel you lack companionship? No Do you ever need help reading or understanding hospital materials? No In the last 12 months, have you changed how you take medications to save money? No In the past 12 months, has lack of transportation kept you from medical appointments, work or getting things you need like food, or supplies? No Pt utilizes transportation services through his insurance. In the last 12 months, did you ever eat less than you felt you should because there wasn't enough money for food? No During the winter, do you anticipate having a problem paying your heating bill? No In the next 2 months, are you worried you might not have stable housing? No Would you like to speak with a social work garment steamer to help give you support for any of these needs? No Pt states that his meds are taking care of, but other stuff isn't. Declined to speak to a PCSW. States that he already talks to a SW. It can be normal to feel anxious or down during a time like this. Would you like to talk to a mental health professional about how you have been feeling? No ACTION TAKEN: No action taken DISCHARGE INTRUCTIONS: Your discharge instructions / After Visit Summary (AVS) are important in guiding you through the recovery process. Do you have any questions related to your discharge instructions? No Do you have all the necessary equipment and supplies at home? Yes ACTION TAKEN: No action required WRAP AROUND SERVICES: Resource Conservationist Referral - Declined Patient educated on importance of primary care provider follow up visit as well as specialty provider follow up visits as indicated. Inform the patient that if they have any questions or concerns prior to that appointment, to call their Primary Care Provider 's office right away. Primary care provider first education provided. I would like to help you schedule a hospital follow-up virtual or telephone visit with your PCP. ACTION TAKEN: TCM Primary Care Provider Visit Scheduled: No - Only wants to follow up with specialty. Pt declines to schedule a hospital f/u appointment w/ his PCP. He is considering switching to a PCP closer to home. States that he needs to call and schedule w/ his Cards - encouraged to do so. Radha Etienne, [facility]05-30-2025 History of Present illness Narrative* Radha Etienne, RN - 07/07/2024 10:53 AM EDT TRANSITIONAL CARE MANAGEMENT (TCM) COMMUNITY MONITORING PROGRAM - [place] SUMMARY: Pt discharged from [facility] on 07/06/24. Admitted for: CHF Non-compliance Patient seen Inpatient TONY Visit? N/A. Patient seen ICARE Program? N/A. Contact made with patient: Yes Hi my name is Radha Etienne RN and I am calling from the [facility] on behalf of your PCP, Marianna Wagner APRN.SPLUNK D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 I understand you were recently in the hospital so I am calling to check in with you to ensure you are feeling well now that you re home. Do you mind if I askyou a few questions related to your hospital stay and well-being Yes Contact with patient post discharge, spoke to patient. Patient identified by name and . Do you feel your health is BETTER, WORSE, or the SAME since leaving the hospital? Better ACTION TAKEN: Patient indicated symptoms are better or same, no action required. Continue outreach. CHF : Does patient have and appointment at the Heart Failure Clinic? No - Referral HF Clinic: No - Pt declined MEDICATIONS: Many patients have questions or concerns about their medications once they are home. Do you have any questions about taking your medications or which medication you should be on? No Do you need any medication refills at this time, including any of the medications you might take only when needed? No ACTION TAKEN: No action required For RNs or Pharmacy completing outreach ONLY, was a medication review completed? No - Pt declined to review his meds. SOCIAL: We would like to make sure you have what you need so that your basics needs are met - including your personal safety. HEALTH LEADS SCREENING TOOL QUESTIONS: Do you often feel you lack companionship? No Do you ever need help reading or understanding hospital materials? No In the last 12 months, have you changed how you take medications to save money? No In the past 12 months, has lack of transportation kept you from medical appointments, work or getting things you need like food, or supplies? No Pt utilizes transportation services through his insurance. In the last 12 months, did you ever eat less than you felt you should because there wasn't enough money for food? No During the winter, do you anticipate having a problem paying your heating bill? No In the next 2 months, are you worried you might not have stable housing? No Would you like to speak with a social work garment steamer to help give you support for any of these needs? No Pt states that his meds are taking care of, but other stuff isn't. Declined to speak to a PCSW. States that he already talks to a SW. It can be normal to feel anxious or down during a time like this. Would you like to talk to a mental health professional about how you have been feeling? No ACTION TAKEN: No action taken DISCHARGE INTRUCTIONS: Your discharge instructions / After Visit Summary (AVS) are important in guiding you through the recovery process. Do you have any questions related to your discharge instructions? No Do you have all the necessary equipment and supplies at home? Yes ACTION TAKEN: No action required WRAP AROUND SERVICES: Resource Conservationist Referral - Declined Patient educated on importance of primary care provider follow up visit as well as specialty provider follow up visits as indicated. Inform the patient that if they have any questions or concerns prior to that appointment, to call their Primary Care Provider 's office right away. Primary care provider first education provided. I would like to help you schedule a hospital follow-up virtual or telephone visit with your PCP. ACTION TAKEN: TCM Primary Care Provider Visit Scheduled: No - Only wants to follow up with specialty. Pt declines to schedule a hospital f/u appointment w/ his PCP. He is considering switching to a PCPcloser to home. States that he needs to call and schedule w/ his Cards - encouraged to do so. Radha Etienne RN [facility] NotePatient Outreach (AGACM) ANALILIA MELENDREZ ([id number]) 1960 M Date Time Provider Department 07/07/24 RADHA ETIENNE [facility] During your visit today, we recorded the following information about you: Radha Etienne RN 07/07/2024 11:25 AM Signed TRANSITIONAL CARE MANAGEMENT (TCM) COMMUNITY MONITORING PROGRAM - [place] SUMMARY: Pt discharged from [facility] on 07/06/24. Admitted for: CHF Non-compliance Patient seen Inpatient TONY Visit? N/A. Patient seen ICARE Program? N/A. Contact made with patient: Yes Hi my name is Radha Etienne RN and I am calling from the [facility] on behalf of your PCP, Marianna Wagner APRN.SPLUNK D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 I understand you were recently in the hospital so I am calling to check in with you to ensure you are feeling well now that you?re home. Do you mind if I ask you a few questions related to your hospital stay and well-being Yes Contact with patient post discharge, spoke to patient. Patient identified by name and . Do you feel your health is BETTER, WORSE, or the SAME since leaving the hospital? Better ACTION TAKEN: Patient indicated symptoms are better or same, no action required. Continue outreach. CHF : Does patient have and appointment at the Heart Failure Clinic? No - Referral HF Clinic: No - Pt declined MEDICATIONS: Many patients have questions or concerns about their medications once they are home. Do you have any questions about taking your medications or which medication you should be on? No Do you need any medication refills at this time, including any of the medications you might take only when needed? No ACTION TAKEN: No action required For RNs or Pharmacy completing outreach ONLY, was a medication review completed? No - Pt declined to review his meds. SOCIAL: We would like to make sure you have what you need so that your basics needs are met - including your personal safety. HEALTH LEADS SCREENING TOOL QUESTIONS: Do you often feel you lack companionship? No Do you ever need help reading or understanding hospital materials? No In the last 12 months, have you changed how you take medications to save money? No In the past 12 months, has lack of transportation kept you from medical appointments, work or getting things you need like food, or supplies? No Pt utilizes transportation services through his insurance. In the last 12 months, did you ever eat less than you felt you should because there wasn't enough money for food? No During the winter, do you anticipate having a problem paying your heating bill? No In the next 2 months, are you worried you might not have stable housing? No Would you like to speak with a social work garment steamer to help give you support for any of these needs? No Pt states that his meds are taking care of, but other stuff isn't. Declined to speak to a PCSW. States that he already talks to a SW. It can be normal to feel anxious or down during a time like this. Would you like to talk to a mental health professional about how you have been feeling? No ACTION TAKEN: No action taken DISCHARGE INTRUCTIONS: Your discharge instructions / After Visit Summary (AVS) are important in guiding you through the recovery process. Do you have any questions related to your discharge instructions? No Do you have all the necessary equipment and supplies at home? Yes ACTION TAKEN: No action required WRAP AROUND SERVICES: Resource Conservationist Referral - Declined Patient educated on importance of primary care provider follow up visit as well as specialty provider follow up visits as indicated. Inform the patient that if they have any questions or concerns prior to that appointment, to call their Primary Care Provider 's office right away. Primary care provider first education provided. I would like to help you schedule a hospital follow-up virtual or telephone visit with your PCP. ACTION TAKEN: TCM Primary Care Provider Visit Scheduled: No - Only wants to follow up with specialty. Pt declines to schedule a hospital f/u appointment w/ his PCP. He is considering switching to a PCP closer to home. States that he needs to call and schedule w/ his Cards - encouraged to do so. Radha Etienne RN Allergies As of Date: 07/07/2024 (No Known Allergies) Date Reviewed: 04/12/2024 Reviewed by: Vandana Edwards - Fully Assessed Reason for Visit: Transition Of Care [4074] Cmt: Andres D/Stephen 07/06/24 Prescriptions as of 07/07/2024 - traMADol (ULTRAM) 50 mg tablet Take 50 mg by mouth every 8 hours as needed for pain. - UNIFINE PENTIPS 31 gauge x 3/16 USE 3 TIMES DAILY - metoprolol tartrate, short acting, (LOPRESSOR) 50 mg tablet TAKE ONE TABLET BY MOUTH TWICE A DAY - pantoprazole DR (PROTONIX) 40 mg tablet TAKE ONE TABLET BY MOUTH TWICE A DAY 3O MINUTES BEFORE MEAL - ramipril (ALTACE) (more content not included)...[facility] 07-06-2024 [facility]05-28-2025 Progress note Author [facility] Note Date/Time July 05, 2024 1:44p m [facility] Medical Records Department [address] [place] [address] Progress Note - Hospitalist 07/05/24 1119 MR#: [id number] Acct: [id number] Name: ANALILIA MELENDREZ Rep #:[id number] : 1960 63 From: Chris de la cruz DO PCP: ALAN Wilde Status:ADM I N Location: [place] [address] Reason for Visit Reason for Visit: Diagnoses Other pancytopenia (06/30/24) Thrombocytopenia, unspecified (06/30/24) Unspecified protein-calorie malnutrition (06/30/24) Other fluid overload (06/30/24) Unspecified acute conjunctivitis, right eye (06/30/24) Acute systolic (congestive) heart failure (06/30/24) Pleural effusion, not elsewhere classified (06/30/24) Other chronic pancreatitis (06/30/24) Other abnormalities of breathing (06/30/24) Hypoxemia (06/30/24) Other ascites (06/30/24) Other specified abnormal findings of blood chemistry (06/30/24) Patient's noncompliance with other medical treatment and regimen due to unspecified reason (06/30/24) Subjective Subjective Saw patient at bedside this morning. Patient appeared similar today to yesterday, was sitting up comfortably in bed, conversing normally and in no acute distress. Had very mild abdominal discomfort this morning, similar to previous days. No other new concerns today. Objective Data Objective Data Vital Signs: Vital Signs Temp Pulse Resp BP Pulse Ox O2 Del Method O2 Flow Rate 97.5 F L 72 16 95/67 94 Room Air 2 07/05/24 09:13 07/05/24 09:29 07/05/24 09:13 07/05/24 09:13 07/05/24 09:13 07/05/24 09:15 07/04/24 14:00 Oxygen Flow Rate (L/min) 2 Oxygen Delivery Method Room Air Weight: 66.1 kg Body Mass Index (BMI) 20.3 Intake & Output: Intake and Output for Last 24 Hours 07/03/24 07/04/24 07/05/24 23:59 23:59 23:59 Intake Total 1600 / 1600 0 / 0 550 / 550 Output Total 4400 / 4400 800 / 800 700 / 700 Balance -2800 / -2800 -800 / -800 -150 / -150 Lab / Micro Data 07/05/24 03:23 07/05/24 03:23 Labs: Laboratory Results - last 24 hr 07/03/24 09:37: Miscellaneous Test 2 COMMENT 07/04/24 04:14: RAMANA-1 Antibody <0.2, SS-A/Ro IgG Antibody < 0.2, SS-B/La IgG Antibody < 0.2, Sm (Khalil) Antibody <0.2, TROUBLE TRACER Antibody <0.2, Scl-70 Scleroderma Ab <0.2, Double Strand DNA Ab <1, Antichromatin Antibodies <0.2, Centromere B Antibody <0.2 07/04/24 11:45: POC Glucose 113 H 07/04/24 16:44: POC Glucose 319 H 07/04/24 21:49: POC Glucose 184 H 07/05/24 03:23: WBC 5.3, RBC 2.46 L, Hgb 8.9 L, Hct 26.7 L, MCV 108.5 H, MCH 36.2 H, MCHC 33.3, RDW Std Deviation 66.9 H, RDW Coeff of Kalpana 16.7 H, Plt Count 141 L, MPV 11.2, Sodium 132 L, Potassium 5.1, Chloride 96 L, Carbon Dioxide 28.7, Anion Gap 7, BUN 23 H, Creatinine 1.70 H, Estim Creat Clear Calc 44.02 L, Est GFR (MDRD) Non- Af 45 L, BUN/Creatinine Ratio 13.5, Glucose 136 H, Calcium 7.9 07/05/24 06:37: POC Glucose 210 H Physical Exam Const alert, oriented x3, no apparent distress and average body habitus Constitutional Narrative: Upper middle-aged male, appears older than stated age, thin and chronically ill-appearing, mildly fatigued appearing, otherwise laying back comfortably in bed in no acute distress. Stable. General Appearance: cooperative and comfortable HEENT normocephalic, head/scalp atraumatic, hearing grossly normal bilaterally, nasal mucous membranes and turbinates normal and moist oral mucous membranes Eyes PERRL, EOMs intact bilaterally and conjunctivae normal Neck full ROM Chest inspection of chest normal Resp normal respiratory effort, normal air movement, no use of accessory muscles and clear to auscultation bilaterally Cardio regular rate, regular rhythm and peripheral pulses 2+ throughout Cardio Narrative: Systolic murmur noted. GI GI Narrative: Mild abdominal distention with mild tenderness to palpation in lower abdomen. Abdomen otherwise soft with normoactive bowel sounds. Stable. Back/Spine normal ROM Extremity normal to inspection and full ROM Skin no rashes or lesions noted Psych mental status grossly normal Assessment & Plan Assessment/Plan (1) Acute HFrEF (heart failure with reduced ejection fraction): (2) Abdominal ascites: PLAN: Plan Patient is a 63-year-old male who presented to [facility] ED on 06/30/2024 with worsening abdominal pain and distention. 1. New onset HFrEF, acute hypoxia with bilateral pleural effusions, moderate tosevere bioprosthetic aortic valve stenosis ? Cardiology following. History of bioprosthetic valve replacement in 2017 withmechanical valve replacement prior to that. Echo 07/03 showed newly reduced EF 35 to 40% with global LV hypokinesis, severe concentric LV hypertrophy, moderateto severe bioprosthetic aortic valve stenosis. Chest x-ray on admit with cardiomegaly and moderate bilateral pleural effusions noted. BNP very elevated at 26,000. Required supplemental oxygen on admit, now weaned back to nasal cannula at rest. Per cardiology, suspect valve issue as below along with medication nonadherence are primary contributors to heart failure. Okay to treat medically at this time with plan for close outpatient follow-up for possible ALBERT/left heart cath/right heart cath. Developed mild MALIK on 07/05, IV Lasix discontinued and will plan to restart p.o. Lasix tomorrow. Will also holdspironolactone, lisinopril and empagliflozin for today and plan to restart tomorrow. Continue low-dose Toprol. If kidney function improved tomorrow, planning for discharge home. 2. Abdominal ascites, chronic abdominal pain with chronic alcoholic pancreatitis ? GI following. S/p paracentesis on 07/01 with 1700mL fluid removed. Had prior paracentesis done with transudative fluid so no paracentesis fluid studies were sent this time. No history of alcohol abuse as below and findings of ascites and thrombocytopenia could point to cirrhosis. However, liver appearance on CT not consistent with cirrhosis, no splenomegaly on CT and no varices on recent EGD. Suspect abdominal ascites are in part secondary to heart failure as noted above. Per GI, have concern for possible pancreatic leak contributing to ascites in setting of chronic pancreatitis. Large lab workup sent, will follow-up as results become available. Appreciate further GI recommendations. 3. Chronic macrocytic anemia, chronic thrombocytopenia ? Hemoglobin stable at baseline around 8. Platelet count stable at baseline 100- 130. Monitor. Okay for DVT prophylaxis. 4. 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 Patient with blood glucose values in the 50s on the mornings of 07/02 and 07/03. Lantus 10 units at night discontinued with no further episodes of hypoglycemia. Okay to continue sliding scale with meals as needed. Continue home gabapentin. 5. Relative hypotension in setting of history of hypertension/hyperlipidemia/nonobstructive CAD ? Patient with hypotension on admit despite being off all home blood pressure medications. Presume secondary to heart failure and aortic valve issues as noted above. Blood pressure much improved. Treating with regimen as above and okay to continue midodrine 10 mg 3 times daily at this time as well. 6. Tobacco abuse ? Continue nicotine patch while inpatient. Discussed cessation on discharge. Chronic medical conditions: ? History of alcohol abuse: Continue cessation on discharge. Continue p.o. thiamine and folate. ? History of sick sinus syndrome s/p pacemaker placement ? History of thoracic aortic aneurysm with dissection s/p surgical repair ? History of heroin abuse: Remote, has been clean for approximately 10 years. ? GERD: Continue home PPI. DVT prophylaxis: Lovenox CODE STATUS: Full code, verified Expected disposition: Home, 1 to 2 days Total clinical time spent by myself addressing the patient's medical issues, reviewing all the data, and collaborating with patient's care team: 35 minutes. Charges/Coding Visit Charges Inpatient E&M: 29098 Subs Hosp L2 07/05/24 1344 <Electronically signed by Chris Aragon DO> Cosigner Signature (if applicable): CC: ~ Signed [facility] Work Phone: 1(324) 201-703105-27-2025 Progress note Author Antony Espitia [facility] Note Date/Time July 04, 2024 5:44p m [facility] Medical Records Department [address] [place] [address] Progress Note 07/04/24 1741 MR#: [id number] Acct: [id number] Name: ANALILIA MELENDREZ JAMARI Rep #:[id number] : 1960 63 From: Antony Espitia DO PCP: ALAN Wilde Status:ADM I N Location: [place] [address] Assessment & Plan Assessment/Plan (1) Chronic pancreatitis: (2) Pancytopenia: (3) Abdominal ascites: (4) Malnutrition: PLAN: 63-year-old with past medical history of chronic alcohol abuse complicatedby macrocytosis, thrombocytopenia, coagulopathy, protein calorie malnutrition, chronic pancreatitis as Chronic ascites and pleural effusions. - Chronic alcoholic pancreatitis-I think his weight loss and diarrhea is likely associated with exocrine pancreatic insufficiency secondary to chronic pancreatitis and inability to secrete appropriate pancreatic enzymes for absorption. He should get a fecal elastase, celiac testing and stool for alpha-1 antitrypsin for protein calorie malnutrition. All 3 of these can lead to ascites with a low SAAG gradient. -Chronic recurrent ascites and pleural effusions-he would likely need a liver biopsy to see if he does have cirrhosis then that would help us determine if he has cirrhotic or noncirrhotic ascites as the picture is not clear regarding if this is from cirrhosis. He will also need paracentesis and likely thoracentesiswith a SAAG gradient, LDH for peritoneal carcinomatosis or infiltrative disease,stool for alpha-1 antitrypsin for protein-losing neuropathy, tissue transglutaminase for celiac disease, anti-smooth muscle antibody and antimitochondrial antibody for underlying liver disease as his previous viral hepatitis workup was negative, HIV for protein-losing neuropathy, HELENA plus SPEP. - Thrombocytopenia -possibly secondary to splenic sequestration in the setting of cirrhosis. On his imaging he does not have significant splenomegaly. - Hepatomegaly-secondary to fatty liver disease from alcohol. He could have a significant amount of good liver left if he is able to get his ascites under control as he does not have splenomegaly. Particularly that is a reversible andat least a worsening portal hypertension and the complications associated with worsening portal hypertension. 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 - 500 mg sodium restriction 07/04/2024-patient does not have any complaints and underwent evaluation by cardiology today. Blood work was sent off for chronic liver disease. He underwent repeat transthoracic echocardiogram and it showed severe concentric left ventricular hypertrophy with moderate to severe thoracic valve aortic stenosis in the setting of a patient that are already has significant heart disease. Recommending possible outpatient ALBERT, left heart catheter right heart catheterization. His I's and O's are only slightly positive today. He is tolerating diuretic therapy and is eating. Blood sugars have been stable. Since he has congestive heart failure with decreased EF that would explain his new onset ascites and pleural effusions. Recommend to continue medical therapy and await biochemical workup. Poor prognosis. Visit Charges Inpatient E&M: 29637 Subs Hosp L3 07/04/24 4887 <Electronically signed by Antony Espitia DO> Antony Espitia DO Cosigner Signature (if applicable): CC: ~ Signed [facility] Work Phone: 1(450) 346-213305-27-2025 Progress note Author Chris Aragon [facility] Note Date/Time July 04, 2024 12:39 pm [facility] Medical Records Department [address] [place] [address] Progress Note - Hospitalist 07/04/24 4789 MR#: [id number] Acct: [id number] Name: ANALILIA MELENDREZ Rep #:[id number] : 1960 63 From: Chris de la cruz DO PCP: Marianna Wagner VEHICLE MODIFICATION TECHNICIAN-C Status:ADM I N Location: [place] [address] Reason for Visit Reason for Visit: Diagnoses Other pancytopenia (06/30/24) Thrombocytopenia, unspecified (06/30/24) Unspecified protein-calorie malnutrition (06/30/24) Other fluid overload (06/30/24) Unspecified acute conjunctivitis, right eye (06/30/24) Acute systolic (congestive) heart failure (06/30/24) Pleural effusion, not elsewhere classified (06/30/24) Other chronic pancreatitis (06/30/24) Other abnormalities of breathing (06/30/24) Hypoxemia (06/30/24) Other ascites (06/30/24) Other specified abnormal findings of blood chemistry (06/30/24) Patient's noncompliance with other medical treatment and regimen due to unspecified reason (06/30/24) Subjective Subjective Saw patient at bedside this morning. Patient had slightly more energy today compared to yesterday. Was reporting mild lower abdominal cramping and discomfort, similar yesterday. Denies any chest pain or shortness of breath. Has had good urine output on IV Lasix. No other new concerns today. Objective Data Objective Data Vital Signs: Vital Signs Temp Pulse Resp BP Pulse Ox O2 Del Method O2 Flow Rate 98.3 F 61 14 90/67 95 Nasal Cannula 2 07/04/24 07:54 07/04/24 07:54 07/04/24 07:54 07/04/24 07:54 07/04/24 08:00 07/04/24 08:00 07/04/24 08:00 Oxygen Flow Rate (L/min) 2 Oxygen Delivery Method Nasal Cannula Weight: 68.2 kg Body Mass Index (BMI) 20.9 Intake & Output: Intake and Output for Last 24 Hours 07/02/24 07/03/24 07/04/24 23:59 23:59 23:59 Intake Total 1355 / 1355 1600 / 1600 0 / 0 Output Total 4400 / 4400 400 / 400 Balance 1355 / 1355 -2800 / -2800 -400 / -400 Lab / Micro Data 07/03/24 05:20 07/03/24 05:20 Labs: Laboratory Results - last 24 hr 07/03/24 05:20: ESR < 1, Lactate Dehydrogenase 415 H, C-React Prot Ext Range < 3.00, HIV 1&2 Antibody Nonreactive 07/03/24 11:54: POC Glucose 120 H 07/03/24 15:57: POC Glucose 170 H 07/03/24 21:35: POC Glucose 174 H 07/04/24 04:14: PT 15.2 H, INR 1.2, APTT 28.2, Urine Total Protein Cancelled, Urine Albumin Cancelled, U Cdlqj-9-Rmnffgmb Cancelled, U Ipisv-2-Liwedouh Cancelled, U Beta Globulin Cancelled, U Gamma Globulin Cancelled, U PEP M-Herb Cancelled, Urine Immunofixation Cancelled, Urine HELENA Interpret Cancelled, Ur Immunofix PEP Note Cancelled, RAMANA-1 Antibody TNP, Sm (Khalil) Antibody TNP, TROUBLE TRACER Antibody TNP, Scl-70 Scleroderma Ab TNP, Antichromatin Antibodies TNP, Centromere B Antibody TNP 07/04/24 06:35: POC Glucose 119 H Radiography Diagnostic Testing: Radiology Impression Echocardiogram 07/01/24 12:44 Interpretation Summary The estimated ejection fraction is 35-40 %. Moderate LV systolic dysfunction with global LV hypokinesia. 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 Mean aortic valve gradient 40.2 mmHg. Pacemaker lead seen in the right ventricle Trivial MR Transmitral Doppler flow revealed impaired relaxation of LV. Ordering Physician: Melonie De La Rosa Referring Physician: Marianna Wagner Performed By: Maria L Burleson, MARIBEL, RVT Physical Exam Const alert, oriented x3, no apparent distress and average body habitus Constitutional Narrative: Upper middle-aged male, appears older than stated age, thin and chronically ill-appearing, mildly fatigued appearing, otherwise laying back comfortably in bed in no acute distress. Stable. General Appearance: cooperative and comfortable HEENT normocephalic, head/scalp atraumatic, hearing grossly normal bilaterally, nasal mucous membranes and turbinates normal and moist oral mucous membranes Eyes PERRL, EOMs intact bilaterally and conjunctivae normal Neck full ROM Chest inspection of chest normal Resp normal respiratory effort, normal air movement, no use of accessory muscles and clear to auscultation bilaterally Cardio regular rate, regular rhythm and peripheral pulses 2+ throughout Cardio Narrative: Systolic murmur noted. GI GI Narrative: Mild abdominal distention with mild diffuse tenderness to palpation. Abdomen otherwise soft with normoactive bowel sounds. Stable. Back/Spine normal ROM Extremity normal to inspection and full ROM Skin no rashes or lesions noted Psych mental status grossly normal Assessment & Plan Assessment/Plan (1) Acute HFrEF (heart failure with reduced ejection fraction): (2) Abdominal ascites: PLAN: Plan Patient is a 63-year-old male who presented to [facility] ED on 06/30/2024 with worsening abdominal pain and distention. 1. New onset HFrEF, acute hypoxia with bilateral pleural effusions, moderate tosevere bioprosthetic aortic valve stenosis ? Cardiology following. History of bioprosthetic valve replacement in 2017 withmechanical valve replacement prior to that. Echo 07/03 showed newly reduced EF 35 to 40% with global LV hypokinesis, severe concentric LV hypertrophy, moderateto severe bioprosthetic aortic valve stenosis. Chest x-ray on admit with cardiomegaly and moderate bilateral pleural effusions noted. BNP very elevated at 26,000. Required supplemental oxygen on admit, now weaned back to nasal cannula at rest. Per cardiology, suspect valve issue as below along with medication nonadherence are primary contributors to heart failure. Okay to treat medically at this time with plan for close outpatient follow-up for possible ALBERT/left heart cath/right heart cath. Will transition from IV Lasix top.o. Lasix tomorrow. Will treat with low-dose Lasix, spironolactone, Toprol, lisinopril and empagliflozin for now and monitor BP closely. 2. Abdominal ascites, chronic abdominal pain with chronic alcoholic pancreatitis ? GI following. S/p paracentesis on 07/01 with 1700mL fluid removed. Had prior paracentesis done with transudative fluid so no paracentesis fluid studies were sent this time. No history of alcohol abuse as below and findings of ascites and thrombocytopenia could point to cirrhosis. However, liver appearance on CT not consistent with cirrhosis, no splenomegaly on CT and no varices on recent EGD. Suspect abdominal ascites are in part secondary to heart failure as noted above. Per GI, have concern for possible pancreatic leak contributing to ascites in setting of chronic pancreatitis. Large lab workup sent, will follow-up as results become available. Appreciate further GI recommendations. 3. Chronic macrocytic anemia, chronic thrombocytopenia ? Hemoglobin stable at baseline around 8. Platelet count stable at baseline 100- 130. Monitor. Okay for DVT prophylaxis. 4. 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 Patient with blood glucose values in the 50s on the mornings of 07/02 and 07/03. Lantus 10 units at night discontinued. Okay to continue sliding scale with meals as needed. Continue home gabapentin. 5. Relative hypotension in setting of history of hypertension/hyperlipidemia/nonobstructive CAD ? Patient with hypotension on admit despite being off all home blood pressure medications. Presume secondary to heart failure and aortic valve issues as noted above. Blood pressure much improved. Treating with regimen as above and okay to continue midodrine 10 mg 3 times daily at this time as well. 6. Tobacco abuse ? Continue nicotine patch while inpatient. Discussed cessation on discharge. Chronic medical conditions: ? History of alcohol abuse: Continue cessation on discharge. Continue p.o. thiamine and folate. ? History of sick sinus syndrome s/p pacemaker placement ? History of thoracic aortic aneurysm with dissection s/p surgical repair ? History of heroin abuse: Remote, has been clean for approximately 10 years. ? GERD: Continue home PPI. DVT prophylaxis: Lovenox CODE STATUS: Full code, verified Expected disposition: Home, 1 to 2 days Total clinical time spent by myself addressing the patient's medical issues, reviewing all the data, and collaborating with patient's care team: 35 minutes. Charges/Coding Visit Charges Inpatient E&M: 25676 Subs Hosp L2 07/04/24 4461 <Electronically signed by Chris Mosteller DO> Cosigner Signature (if applicable): CC: ~ Signed [facility] Work Phone: 1(830) [phone] Consult note Author Yaneli Carbone [facility] Note Date/Time July 04, 2024 10:59 am [facility] Medical Records Department [address] [place] [address] Consultation - Cardiology 07/04/24 1030 MR#: [id number] Acct: [id number] Name: ANALILIA MELENDREZ Rep #:[id number] : 1960 63 From: Yaneli Carbone MD PCP: Marianna Wagner, VEHICLE MODIFICATION TECHNICIAN-C Status:ADM I N Location: [place] [address] Assessment & Plan Assessment/Plan (1) Pancytopenia: (2) Abdominal ascites: (3) Pleural effusion: (4) Thrombocytopenia: (5) Chronic pancreatitis: (6) Acute HFrEF (heart failure with reduced ejection fraction): PLAN: Cardiac care plan recommendations; 63-year-old patient presenting with abdominal distention and shortness of breath. Patient has history of alcohol abuse and decompensated liver disease with thrombocytopenia/macrocytic anemia/chronic pancytopenia. He was admitted for significant protein/nutrition weight loss and worsening abdominal distention and underwent paracentesis. And has been seen and followedby the GI. From cardiac standpoint patient has a history of mechanical aortic valve and a redo valve using bovine valve at [facility]. As well he had a pacemaker. He denied any symptoms of chest pain no dizziness lightheadedness. On review of the record it appears patient is noncompliant for follow-up up The echocardiographic evaluation here revealed the significant change in the EF from previous With moderate LV systolic dysfunction Ejection fraction in the range of 35-40%. Severe concentric left ventricular hypertrophy With moderate to severe thoracic valve stenosis Aortic valve area 1.1 cm2 Maximal gradient across aortic valve is 60 mmHg with a mean gradient of 40.2 mmHg. Impaired LV relaxation consistent with diastolic dysfunction. With a mean gradient of 40 mmHg. I discussed the cardiac care plan in detail with the medical team today Once patient completed his current medical management by the GI team patient canbe evaluated further as an outpatient with possible ALBERT/left heart catheter/right heart cath and discuss further plan he does have established ultrasound sonographer at [facility] But the patient would like to follow-up here with the cardiac team at [facility]. Yaneli Carbone MD,FAC,[facility] HPI Consult Data Date of Consult: 07/04/24 HPI Narrative Reason for Consultation: Moderate LV systolic dysfunction/moderate/severe bioprosth. aortic stenosis HPI Narrative: ANALILIA MELENDREZ, is a 63 M who presents [facility] Medical History (Updated 07/03/24 @ 14:[address] Chris Aragon, DO) Abdominal ascites MALIK (acute kidney injury) Seizures Alcoholic hepatitis Chronic pancreatitis Gastric wall thickening Alcohol dependence Anxiety Diabetes Pancreatitis Myocardial infarct Pacemaker AAA (abdominal aortic aneurysm) Admitted to alcohol detoxification center Alcohol abuse Hx of hypercholesterolemia History of diabetes mellitus Alcohol dependence Substance abuse Smoker Alcoholism Right bundle branch block (RBBB) Non-sustained ventricular tachycardia Thoracic aortic aneurysm SVT (supraventricular tachycardia) Ascending aortic dissection (~2005) Pure hypercholesterolemia Adrenal nodule Hiatal hernia Left carotid bruit Cardiac pacemaker in situ (~06/2016) Essential hypertension Pacemaker Sick sinus syndrome Tobacco use HTN (hypertension) Diabetes mellitus, type II Home Medications ?Medication ?Instructions ?Recorded ?Last Taken ?Type atorvastatin 10 mg tablet 10 mg PO DAILY CHOLESTEROL 0 10/17/20 04/19/23 History hydralazine 25 mg tablet 25 mg PO TID BP 10/17/2001/01 History dapagliflozin propanediol 10 mg 10 mg PO DAILY DIABETE S 09/30/21 04/19/23 History tablet (Farxiga) multivitamin 1 tab PO DAILY SUPPLEMENT 11/10/21 History gabapentin 300 mg capsule 300 mg PO DAILY NEUROPATHY 1 Unknown History insulin glargine 100 unit/mL (3 5 unit subcut 1200 MAC BETES 11/14/22 04/19/23 History mL) subcutaneous pen (Lantus Solostar U-100 Insulin) metformin 500 mg tablet,extended 500 mg PO BID DIABETE S 11/15/22 04/19/23 History release 24 hr L.acidophil,salivari-Bifido 2 cap PO BID #0 caps 05/19 Unknown Rx bifidum-Strep thermoph 175 mg capsule folic acid 1 mg tablet 1 mg PO DAILY@0800 supplemen t #0 05/20/23 Unknown Rx tabs furosemide 40 mg tablet 40 mg PO DAILY diuretic #30 tabs 05/20/23 Unknown Rx insulin lispro 100 unit/mL See Protocol subcut ACHS #0 mL 05/20/23 Unknown Rx subcutaneous pen (Humalog KwikPen (U-100) Insulin) spironolactone 25 mg tablet 12.5 mg (1/2 x 25 mg) PO D AILY 05/20/23 Unknown Rx diuretic #30 tabs thiamine HCl (vitamin B1) 100 mg 100 mg PO DAILYCM vit padilla #0 tabs 05/20/23 Unknown Rx tablet (Vitamin B-1) pantoprazole 40 mg tablet,delayed 40 mg PO BID reflux #60 tabs 06/27/23 Unknown Rx release nlcrud-znfymdmn-kxcozck 1 cap PO TIDCM #90 caps 06/09 03/04 Unknown Rx 24,000-76,000-120,000 unit capsule,delayed rel (Creon) tramadol 50 mg tablet 50 mg PO Q8H PRN pain #9 tab s 06/28/24 Unknown Rx ferrous sulfate 325 mg (65 mg 325 mg PO DAILY 06/30/24 Unknown History iron) tablet (FeroSul) metoprolol tartrate 50 mg tablet 50 mg PO BID 06/30/24 Unknown History ramipril 10 mg capsule 10 mg PO DAILY 06/30/24 Unkn own History Allergy/AdvReac Type Severity Reaction Status Date / Time No Known Allergies Allergy Verified 06/30/24 15:18 Family History Father CAD (coronary artery disease) Mother Dementia Surgical History H/O cardiac catheterization History of aortic aneurysm repair (~2016) History of cataract surgery History of hernia repair History of aortic valve replacement with bioprosthetic valve (~2016) H/O aortic valve replacement Social History household members: family housing: house Smoking Status: Current every day smoker tobacco type: cigarettes alcohol intake: current alcohol intake frequency: 0-2 drinks per day details: Reports currently ~ 2 tall boys daily. substance use type: former substance user caffeine: Yes Type: coffee Number of servings: 3 Physical Exam Cardio Cardio Narrative: Review of the monitoring analyst showed paced atrial rhythm Cardiac exam S1-S2 is irregular Systolic murmur heard in the aortic valve area/mid diastolic murmur Chest exam normal auscultation bilateral. Examination lower extremity no lower extremity edema. Risk Stratification Risk Stratification Applicable: No Objective Data Vital Signs: Vital Signs Temp Pulse Resp BP Pulse Ox O2 Del Method O2 Flow Rate 98.3 F 61 14 90/67 95 Nasal Cannula 2 07/04/24 07:54 07/04/24 07:54 07/04/24 07:54 07/04/24 07:54 07/04/24 08:00 07/04/24 08:00 07/04/24 08:00 Oxygen Flow Rate (L/min) 2 Oxygen Delivery Method Nasal Cannula Weight: 150 lb 5.684 oz Body Mass Index (BMI) 20.9 Intake & Output: Intake and Output for Last 24 Hours 07/02/24 07/03/24 07/04/24 23:59 23:59 23:59 Intake Total 1355 / 1355 1600 / 1600 0 / 0 Output Total 4400 / 4400 400 / 400 Balance 1355 / 1355 -2800 / -2800 -400 / -400 Lab / Micro Data 07/03/24 05:20 07/03/24 05:20 Labs: Laboratory Results - last 24 hr 07/03/24 05:20: ESR < 1, Lactate Dehydrogenase 415 H, C-React Prot Ext Range < 3.00, HIV 1&2 Antibody Nonreactive 07/03/24 11:54: POC Glucose 120 H 07/03/24 15:57: POC Glucose 170 H 07/03/24 21:35: POC Glucose 174 H 07/04/24 04:14: PT 15.2 H, INR 1.2, APTT 28.2, Urine Total Protein Cancelled, Urine Albumin Cancelled, U Kasbc-6-Khicorvd Cancelled, U Fcaoy-1-Gbjsbygz Cancelled, U Beta Globulin Cancelled, U Gamma Globulin Cancelled, U PEP M-Herb Cancelled, Urine Immunofixation Cancelled, Urine HELENA Interpret Cancelled, Ur Immunofix PEP Note Cancelled, RAMANA-1 Antibody TNP, Sm (Khalil) Antibody TNP, TROUBLE TRACER Antibody TNP, Scl-70 Scleroderma Ab TNP, Antichromatin Antibodies TNP, Centromere B Antibody TNP 07/04/24 06:35: POC Glucose 119 H Cardiology Labs/Tests 07/04/24 04:14: PT 15.2 H, INR 1.2, APTT 28.2 Rhythm: EKG: ECHO: Stress Test: Cardiac Cath: PCI: CT Surgery: Holter monitor: EPS: PPM: CXR: Chest CT Scan: Radiography Diagnostic Testing: Radiology Impression Echocardiogram 07/01/24 12:44 Interpretation Summary The estimated ejection fraction is 35-40 %. Moderate LV systolic dysfunction with global LV hypokinesia. 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 Mean aortic valve gradient 40.2 mmHg. Pacemaker lead seen in the right ventricle Trivial MR Transmitral Doppler flow revealed impaired relaxation of LV. Ordering Physician: Melonie De La Rosa Referring Physician: Marianna Wagner Performed By: Maria L Burleson, MARIBEL, RVT 07/04/24 1059 <Electronically signed by Yaneli Carbone MD> Cosigner Signature (if applicable): CC: ALAN Wagner; Dr. Conrado Pro, DO~ Signed [facility] Work Phone: 1(411) 289-113005-26-2025 Progress note Author [facility] Note Date/Time July 03, 2024 2:55p [facility] Medical Records Department [address] [place] [address] Progress Note - Hospitalist 07/03/24 1032 MR#: [id number] Acct: [id number] Name: ANALILIA MELENDREZ Rep #:[id number] : 1960 63 From: Chris de la cruz DO PCP: ALAN Wilde Status:ADM I N Location: [place] [address] Reason for Visit Reason for Visit: Diagnoses Other fluid overload (06/30/24) Unspecified acute conjunctivitis, right eye (06/30/24) Pleural effusion, not elsewhere classified (06/30/24) Other abnormalities of breathing (06/30/24) Hypoxemia (06/30/24) Other specified abnormal findings of blood chemistry (06/30/24) Patient's noncompliance with other medical treatment and regimen due to unspecified reason (06/30/24) Subjective Subjective Saw patient at bedside this morning. Patient was fatigued appearing but otherwise laying back comfortably in bed in no acute distress. Reported mild abdominal discomfort this morning, similar to yesterday. Denies any worsening abdominal distention after his paracentesis from 2 days ago. No other new concerns today. Objective Data Objective Data Vital Signs: Vital Signs Temp Pulse Resp BP Pulse Ox O2 Del Method O2 Flow Rate 98.2 F 76 14 95/63 93 Nasal Cannula 2 07/03/24 08:34 07/03/24 08:34 07/03/24 08:34 07/03/24 08:34 07/03/24 08:34 07/03/24 08:35 07/03/24 08:35 Oxygen Flow Rate (L/min) 2 Oxygen Delivery Method Nasal Cannula Weight: 71.3 kg Body Mass Index (BMI) 21.9 Intake & Output: Intake and Output for Last 24 Hours 07/01/24 07/02/24 07/03/24 23:59 23:59 23:59 Intake Total 540 / 540 1355 / 1355 Output Total 975 / 975 1000 / 1000 Balance -435 / -435 1355 / 1355 -1000 / -1000 Lab / Micro Data 07/03/24 05:20 07/03/24 05:20 Labs: Laboratory Results - last 24 hr 07/02/24 11:50: POC Glucose 107 H 07/02/24 16:38: POC Glucose 174 H 07/02/24 20:41: POC Glucose 218 H 07/03/24 05:20: WBC 4.3 L, RBC 2.23 L, Hgb 8.0 L, Hct 24.2 L, MCV 108.5 H, MCH 35.9 H, MCHC 33.1, RDW Std Deviation 66.8 H, RDW Coeff of Kalpana 16.9 H, Plt Count 107 L, MPV 10.8, Sodium 137, Potassium 4.0, Chloride 103, Carbon Dioxide 28.0, Anion Gap 6, BUN 15, Creatinine 1.15, Estim Creat Clear Calc 68.03, Est GFR (MDRD) Non-Af 72, BUN/Creatinine Ratio 13.1, Glucose 54 L, Calcium 7.4 L, Phosphorus 3.2, Magnesium 1.8 07/03/24 06:54: POC Glucose 128 H Physical Exam Const alert, oriented x3, no apparent distress and average body habitus Constitutional Narrative: Upper middle-aged male, appears older than stated age, thin and chronically ill-appearing, mildly fatigued appearing, otherwise laying back comfortably in bed in no acute distress. General Appearance: cooperative and comfortable HEENT normocephalic, head/scalp atraumatic, hearing grossly normal bilaterally, nasal mucous membranes and turbinates normal and moist oral mucous membranes Eyes PERRL, EOMs intact bilaterally and conjunctivae normal Neck full ROM Chest inspection of chest normal Resp normal respiratory effort, normal air movement, no use of accessory muscles and clear to auscultation bilaterally Cardio regular rate, regular rhythm, no murmurs and peripheral pulses 2+ throughout GI GI Narrative: Mild abdominal distention with diffuse tenderness palpation. Abdomen otherwise soft with normoactive bowel sounds. Back/Spine normal ROM Extremity normal to inspection and full ROM Skin no rashes or lesions noted Psych mental status grossly normal Assessment & Plan Assessment/Plan (1) Acute HFrEF (heart failure with reduced ejection fraction): (2) Abdominal ascites: PLAN: Plan Patient is a 63-year-old male who presented to [facility] ED on 06/30/2024 with worsening abdominal pain and distention. 1. New onset HFrEF, acute hypoxia with bilateral pleural effusions ? Cardiology consulted. 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 Chest x-ray on admit with cardiomegaly andmoderate bilateral pleural effusions noted. BNP very elevated at 26,000. Required supplemental oxygen on admit, now weaned back to nasal cannula at rest. Continue IV Lasix 40 mg twice daily for now. Continue Jardiance that was started while inpatient. Has been relatively hypotensive as noted below, continue low-dose Lopressor as able. 2. Moderate to severe bioprosthetic aortic valve stenosis ? Cardiology consulted as above. History of bioprosthetic valve replacement in 2017 with mechanical valve replacement prior to that. Echo findings as above. Appreciate further cardiology recommendations. 3. Abdominal ascites, chronic abdominal pain with chronic alcoholic pancreatitis ? GI following. S/p paracentesis on 07/01 with 1700mL fluid removed. Had prior paracentesis done with transudative fluid so no paracentesis fluid studies were sent this time. No history of alcohol abuse as below and findings of ascites and thrombocytopenia could point to cirrhosis. However, liver appearance on CT not consistent with cirrhosis, no splenomegaly on CT and no varices on recent EGD. Per GI, have concern for possible ascites secondary to pancreatic leak in setting of chronic pancreatitis. Ascites may also be secondary to heart failureas noted above. Continue IV Lasix as above. Appreciate further GI recommendations. 4. Chronic macrocytic anemia, chronic thrombocytopenia ? Hemoglobin stable at baseline around 8. Platelet count stable at baseline 100- 130. Monitor. Okay for DVT prophylaxis. 5. 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 Patient with blood glucose values in the 50s on the mornings of 07/02 and 07/03. Lantus 10 units at night discontinued. Okay to continue sliding scale with meals as needed. Continue home gabapentin. 6. Relative hypotension in setting of history of hypertension/hyperlipidemia/nonobstructive CAD ? Patient with hypotension despite being off all home blood pressure medications. Presume secondary to heart failure and aortic valve issues as noted above. Okay to continue home Lopressor at reduced dose of 12.5 mg twice daily as able. Continue midodrine 10 mg 3 times daily. 7. Tobacco abuse ? Continue nicotine patch while inpatient. Discussed cessation on discharge. Chronic medical conditions: ? History of alcohol abuse: Continue cessation on discharge. Continue p.o. thiamine and folate. ? History of sick sinus syndrome s/p pacemaker placement ? History of thoracic aortic aneurysm with dissection s/p surgical repair ? History of heroin abuse: Remote, has been clean for approximately 10 years. ? GERD: Continue home PPI. DVT prophylaxis: Lovenox CODE STATUS: Full code, verified Expected disposition: Home, TBD Total clinical time spent by myself addressing the patient's medical issues, reviewing all the data, and collaborating with patient's care team: 35 minutes. Charges/Coding Visit Charges Inpatient E&M: 17546 Subs Hosp L2 07/03/24 0725 <Electronically signed by Chris Aragon DO> Cosigner Signature (if applicable): CC: ~ Signed [facility] Work Phone: 1(824) 441-898805-26-2025 Consult note Author Antony Espitia [facility] Note Date/Time July 03, 2024 11:50 am [facility] Medical Records Department [address] [place] [address] Consultation - GI 07/03/24 1127 MR#: [id number] Acct: [id number] Name: ANALILIA MELENDREZ Rep #:[id number] : 1960 63 From: Antony Espitia DO PCP: ALAN Wilde Status:ADM I N Location: [place] [address] HPI Consult Data Date of Consult: 07/03/24 HPI Narrative Reason for Consultation: Ascites HPI Narrative: ANALILIA MELENDREZ, is a 63 M who presents back to the ER with worsening abdominal distention and shortness of breath. I saw the patient for the first time last month for possible decompensated liver disease. He has a chronic pancytopenia with a macrocytic anemia. He also has a history of alcohol abuse without previous diagnosis of cirrhosis. He has had persistent imaging over the last year which had showed intermittent bilateral effusions and intra-abdominal ascites. He had an an echo a year ago that showed a EF of 70% with no significant mitral regurgitation or tricuspid regurgitation and no signs of significant pulmonary hypertension. After being readmitted for significant protein, nutrition, weight loss and worsening abdominal distention he underwent paracentesis this weekend on 07/01/2024. He at 1.7 L of serosanguineous fluid removed. He also carries a past medical history of insulin-dependent diabetes, chronic pancreatitis secondary to alcohol and no recent endoscopy there was some type I gastric varices that were seen. There are also with signs of portal gastropathy seen throughout the stomach. Last year there was some suspicion of a secondary causeof his ascites other than alcohol such as nephrotic syndrome. However at that time he had no significant proteinuria. His stool was not checked for alpha-1 antitrypsin. HIV testing was also not performed. The starting weight of the patient as of a year ago was 67 kg and reduced to 57 kg in the past 8 months. He complains of general weakness, pruritus, and decreased pubic and axillary hair were also noticeable. Eight months earlier, hehad profound jaundice without abdominal pain. This was suspected to be secondary to alcoholic hepatitis. He was not put on steroids at that time. This was at a different hospital. He was not put on ursodiol. His symptoms didget subsequently better. He did continue to drink up until approximately 2 months ago. The patient was lost to follow-up and never visited our hospital again until recently. He had no noteworthy medical or family history, including gastrointestinal bleeding or liver disease. [facility] Medical History (Updated 07/03/24 @ 11:[address] Hardy Friend, DO) Abdominal ascites MALIK (acute kidney injury) Seizures Alcoholic hepatitis Chronic pancreatitis Gastric wall thickening Alcohol dependence Anxiety Diabetes Pancreatitis Myocardial infarct Pacemaker AAA (abdominal aortic aneurysm) Admitted to alcohol detoxification center Alcohol abuse Hx of hypercholesterolemia History of diabetes mellitus Alcohol dependence Substance abuse Smoker Alcoholism Right bundle branch block (RBBB) Non-sustained ventricular tachycardia Thoracic aortic aneurysm SVT (supraventricular tachycardia) Ascending aortic dissection (~2005) Pure hypercholesterolemia Adrenal nodule Hiatal hernia Left carotid bruit Cardiac pacemaker in situ (~06/2016) Essential hypertension Pacemaker Sick sinus syndrome Tobacco use HTN (hypertension) Diabetes mellitus, type II Home Medications ?Medication ?Instructions ?Recorded ?Last Taken ?Type atorvastatin 10 mg tablet 10 mg PO DAILY CHOLESTEROL 0 10/17/20 04/19/23 History hydralazine 25 mg tablet 25 mg PO TID BP 10/17/2001/01 History dapagliflozin propanediol 10 mg 10 mg PO DAILY DIABETE S 09/30/21 04/19/23 History tablet (Farxiga) multivitamin 1 tab PO DAILY SUPPLEMENT 11/10/21 History gabapentin 300 mg capsule 300 mg PO DAILY NEUROPATHY 1 Unknown History insulin glargine 100 unit/mL (3 5 unit subcut 1200 MAC BETES 11/14/22 04/19/23 History mL) subcutaneous pen (Lantus Solostar U-100 Insulin) metformin 500 mg tablet,extended 500 mg PO BID DIABETE S 11/15/22 04/19/23 History release 24 hr L.acidophil,salivari-Bifido 2 cap PO BID #0 caps 05/19 Unknown Rx bifidum-Strep thermoph 175 mg capsule folic acid 1 mg tablet 1 mg PO DAILY@0800 supplemen t #0 05/20/23 Unknown Rx tabs furosemide 40 mg tablet 40 mg PO DAILY diuretic #30 tabs 05/20/23 Unknown Rx insulin lispro 100 unit/mL See Protocol subcut ACHS #0 mL 05/20/23 Unknown Rx subcutaneous pen (Humalog KwikPen (U-100) Insulin) spironolactone 25 mg tablet 12.5 mg (1/2 x 25 mg) PO D AILY 05/20/23 Unknown Rx diuretic #30 tabs thiamine HCl (vitamin B1) 100 mg 100 mg PO DAILYCM vit padilla #0 tabs 05/20/23 Unknown Rx tablet (Vitamin B-1) pantoprazole 40 mg tablet,delayed 40 mg PO BID reflux #60 tabs 06/27/23 Unknown Rx release vizmnw-rqmszxcw-uzwipim 1 cap PO TIDCM #90 caps 06/09 03/04 Unknown Rx 24,000-76,000-120,000 unit capsule,delayed rel (Creon) tramadol 50 mg tablet 50 mg PO Q8H PRN pain #9 tab s 06/28/24 Unknown Rx ferrous sulfate 325 mg (65 mg 325 mg PO DAILY 06/30/24 Unknown History iron) tablet (FeroSul) metoprolol tartrate 50 mg tablet 50 mg PO BID 06/30/24 Unknown History ramipril 10 mg capsule 10 mg PO DAILY 06/30/24 Unkn own History Allergy/AdvReac Type Severity Reaction Status Date / Time No Known Allergies Allergy Verified 06/30/24 15:18 Family History Father CAD (coronary artery disease) Mother Dementia Surgical History H/O cardiac catheterization History of aortic aneurysm repair (~2016) History of cataract surgery History of hernia repair History of aortic valve replacement with bioprosthetic valve (~2016) H/O aortic valve replacement Social History household members: family housing: house Smoking Status: Current every day smoker tobacco type: cigarettes alcohol intake: current alcohol intake frequency: 0-2 drinks per day details: Reports currently ~ 2 tall boys daily. substance use type: former substance user caffeine: Yes Type: coffee Number of servings: 3 ROS Constitutional Constitutional: Denies fatigue, fever(s), poor appetite, weight gain or weight loss Gastrointestinal Gastrointestinal: Denies belching, bloating, change in bowel habits, change in stool character, chewing difficulty, coffee ground emesis, constipation, cramping, diarrhea, dyspepsia, dysphagia, early satiety, excessive flatus, fecalincontinence, heartburn, hematemesis, hematochezia, hemorrhoids, loose stools, melena, nausea, odynophagia, rectal bleeding, tenesmus, vomiting or weight changes Physical Exam Const alert, oriented x3, no apparent distress and average body habitus Constitutional Narrative: Patient appears chronically ill and older than his stated age. General Appearance: cooperative HEENT normocephalic, head/scalp atraumatic and hearing grossly normal bilaterally Eyes PERRL, EOMs intact bilaterally and conjunctivae normal Neck no lymphadenopathy, supple and no JVD Resp normal respiratory effort, no retractions, no use of accessory muscles and clearto auscultation bilaterally Cardio regular rate and regular rhythm GI GI Narrative: Patient's abdomen is distended with positive fluid wave and tender to palpation diffusely with bruising in abdomen likely from insulin injections. There is no rebound or guarding. Extremity normal to inspection, full ROM and no clubbing, cyanosis or edema Skin Skin Narrative: Patient has bruising over abdomen likely from recent insulin injections. Neuro oriented x3, CN's II-XII intact bilaterally, moves all extremities and no focal motor deficits Sensorium / Orientation: awake, alert, oriented to person, oriented to place andoriented to time Speech: speech normal Psych affect normal Lab / Micro Data 07/03/24 05:20 07/03/24 05:20 Labs: Laboratory Results - last 24 hr 07/02/24 11:50: POC Glucose 107 H 07/02/24 16:38: POC Glucose 174 H 07/02/24 20:41: POC Glucose 218 H 07/03/24 05:20: WBC 4.3 L, RBC 2.23 L, Hgb 8.0 L, Hct 24.2 L, MCV 108.5 H, MCH 35.9 H, MCHC 33.1, RDW Std Deviation 66.8 H, RDW Coeff of Kalpana 16.9 H, Plt Count 107 L, MPV 10.8, Sodium 137, Potassium 4.0, Chloride 103, Carbon Dioxide 28.0, Anion Gap 6, BUN 15, Creatinine 1.15, Estim Creat Clear Calc 68.03, Est GFR (MDRD) Non-Af 72, BUN/Creatinine Ratio 13.1, Glucose 54 L, Calcium 7.4 L, Phosphorus 3.2, Magnesium 1.8 07/03/24 06:54: POC Glucose 128 H Assessment & Plan Assessment/Plan (1) Chronic pancreatitis: (2) Pancytopenia: (3) Abdominal ascites: (4) Malnutrition: PLAN: 63-year-old with past medical history of chronic alcohol abuse complicatedby macrocytosis, thrombocytopenia, coagulopathy, protein calorie malnutrition, chronic pancreatitis as Chronic ascites and pleural effusions. - Chronic alcoholic pancreatitis-I think his weight loss and diarrhea is likely associated with exocrine pancreatic insufficiency secondary to chronic pancreatitis and inability to secrete appropriate pancreatic enzymes for absorption. He should get a fecal elastase, celiac testing and stool for alpha-1 antitrypsin for protein calorie malnutrition. All 3 of these can lead to ascites with a low SAAG gradient. -Chronic recurrent ascites and pleural effusions-he would likely need a liver biopsy to see if he does have cirrhosis then that would help us determine if he has cirrhotic or noncirrhotic ascites as the picture is not clear regarding if this is from cirrhosis. He will also need paracentesis and likely thoracentesiswith a SAAG gradient, LDH for peritoneal carcinomatosis or infiltrative disease,stool for alpha-1 antitrypsin for protein-losing neuropathy, tissue transglutaminase for celiac disease, anti-smooth muscle antibody and antimitochondrial antibody for underlying liver disease as his previous viral hepatitis workup was negative, HIV for protein-losing neuropathy, HELENA plus SPEP. - Thrombocytopenia -possibly secondary to splenic sequestration in the setting of cirrhosis. On his imaging he does not have significant splenomegaly. - Hepatomegaly-secondary to fatty liver disease from alcohol. He could have a significant amount of good liver left if he is able to get his ascites under control as he does not have splenomegaly. Particularly that is a reversible andat least a worsening portal hypertension and the complications associated with worsening portal hypertension. 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 - 500 mg sodium restriction Charges/Coding Visit Charges Inpatient E&M: 54207 Init Hosp L3 07/03/24 1150 <Electronically signed by Antony Friend DO> Cosigner Signature (if applicable): CC: VEHICLE MODIFICATION TECHNICIAN-C Marianna Wagner; Dr. Conrado Pro DO~ Signed [facility] Work Phone: 1(970) [phone] Progress note Author Melonie De La Rosa [facility] Note Date/Time July 02, 2024 11:47 am [facility] Medical Records Department [address] [place] [address] Progress Note - Hospitalist 07/02/24 0712 MR#: [id number] Acct: [id number] Name: ANALILIA MELENDREZ Rep #:[id number] : 1960 63 From: Melonie De La Rosa DO PCP: ALAN Wilde Status:ADM I N Location: [place] [address] Reason for Visit Reason for Visit: Abdominal pain Subjective Subjective Patient reports that he still having some cramping in his lower abdomen. CAT scan was unremarkable. Will add some Bentyl to see if this does help him. He states he is having bowel movements again. States his breathing seems to be okay. Encouraged bed. Blood pressure was soft overnight. Will hold home antihypertensives and start midodrine and attempt to be aggressive with his diuresis. Objective Data Objective Data Vital Signs: Vital Signs Temp Pulse Resp BP Pulse Ox O2 Del Method O2 Flow Rate 97.0 F L 78 16 99/73 96 Nasal Cannula 2 07/02/24 03:56 07/02/24 03:56 07/02/24 03:56 07/02/24 03:56 07/02/24 03:56 07/02/24 03:56 07/02/24 03:56 Oxygen Flow Rate (L/min) 2 Oxygen Delivery Method Nasal Cannula Weight: 72.9 kg Body Mass Index (BMI) 22.4 Intake & Output: Intake and Output for Last 24 Hours 06/30/24 07/01/24 07/02/24 23:59 23:59 23:59 Intake Total 100 / 100 540 / 540 Output Total 400 / 400 975 / 975 Balance -300 / -300 -435 / -435 Lab / Micro Data 07/02/24 03:55 07/02/24 05:50 Labs: Laboratory Results - last 24 hr 07/01/24 12:07: POC Glucose 114 H 07/01/24 17:08: POC Glucose 237 H 07/01/24 22:09: POC Glucose 158 H 07/02/24 03:55: WBC 4.0 L, RBC 2.06 L, Hgb 7.5 L, Hct 22.5 L, MCV 109.2 H, MCH 36.4 H, MCHC 33.3, RDW Std Deviation 67.2 H, RDW Coeff of Kalpana 16.7 H, Plt Count 132 L, MPV 12.5 H, Differential Comment , Sodium Cancelled, Potassium Cancelled,Chloride Cancelled, Carbon Dioxide Cancelled, Anion Gap Cancelled, BUN Cancelled, Creatinine Cancelled, Estim Creat Clear Calc Cancelled, Est GFR (MDRD) Non-Af Cancelled, BUN/Creatinine Ratio Cancelled, Glucose Cancelled, Calcium Cancelled, Phosphorus Cancelled, Magnesium Cancelled, Total Bilirubin Cancelled, AST Cancelled, ALT Cancelled, Alkaline Phosphatase Cancelled, Total Protein Cancelled, Albumin Cancelled, Globulin Cancelled, Albumin/Globulin RatioCancelled 07/02/24 05:50: Sodium 141, Potassium 4.1, Chloride 108, Carbon Dioxide 26.7, Anion Gap 7, BUN 11, Creatinine 1.22 H, Estim Creat Clear Calc 65.56, Est GFR (MDRD) Non-Af 67, BUN/Creatinine Ratio 8.9 L, Glucose 57 L, Calcium 7.7, Phosphorus 2.4 L, Magnesium 1.8, Total Bilirubin 0.29, AST 54 H, ALT 26, AlkalinePhosphatase 101, Total Protein 4.3 L, Albumin 2.3 L, Globulin 2.0 L, Albumin/Globulin Ratio 1.2 07/02/24 05:51: POC Glucose 66 L 07/02/24 06:28: POC Glucose 116 H Physical Exam Const alert, oriented x3, no apparent distress and average body habitus; Negative for healthy appearing Constitutional Narrative: Middle-aged, white male, lying in bed in left side-lying, awake, interacts appropriately, states he has to go to the bathroom, somewhat impulsive, does notappear toxic General Appearance: cooperative HEENT normocephalic, head/scalp atraumatic and moist oral mucous membranes Resp normal respiratory effort, no retractions, no use of accessory muscles and clearto auscultation bilaterally Resp Narrative: Diffusely diminished with more diminished at bases bilaterally Auscultation: Negative for rales, rhonchi or wheezes Cardio regular rate, regular rhythm, S1 normal heart sound, no rub, no gallops and no clicks; Negative for S2 normal heart sound or no murmurs Cardio Narrative: 3 out of 6 systolic murmur, loudest at right upper sternal border, S2 is soft, radiates to bilateral carotids GI normal to inspection, nondistended, normoactive bowel sounds and soft to palpation GI Narrative: Fluid wave is resolved status post paracentesis, mild tenderness in the lower abdomen, scattered ecchymosis on the abdomen from injections and from what appears to be an abrasion across the anterior lower abdomen Extremity Extremity Narrative: Trace bilateral lower extremity pitting edema, no cyanosis or clubbing Neuro oriented x3, moves all extremities and no focal motor deficits Speech: speech normal Psych affect normal Psych Narrative: Pleasant, interacts appropriately, patient is somewhat impulsive Assessment & Plan Assessment/Plan (1) Elevated troponin: (2) Medically noncompliant: (3) Pleural effusion: (4) Hypoxia: (5) Volume overload: QUALIFIERS: Hypervolemia type: other Qualified Code(s): E87.79 - Other fluid overload PLAN: Plan Acute hypoxia secondary to bilateral pleural effusions - Etiology is unclear liver versus cardiac - BNP is elevated however patient also has liver disease - Echocardiogram is ordered and pending - Paracentesis completed - No thoracentesis for now as I think this is translocation from the abdominal cavity up into the chest cavity - IV Lasix 40 push twice daily - Wean oxygen as able - Was 87% on room air in the emergency department - I-S and Acapella -Patient was noncompliant with diuretic therapy at discharge Relative hypotension -blood pressures have been soft - Hold home antihypertensives - Start midodrine 10 mg 3 times daily - Would like to continue diuresis given volume overload on presentation Hypophosphatemia - Mild -will give 15 mmol replacement of K-Phos - Repeat a.m. lab Elevated troponin - No chest pain - Echocardiogram was ordered yesterday and hopeful it will be done in the next 24 to 48 hours due to holiday weekend and there seems to be delay - Highly suspect this is demand ischemia related to his hypoxia Chronic abdominal pain - Like related to chronic alcoholic pancreatitis but patient also is complainingof lower abdominal cramping -CT is unrevealing for any significant intra-abdominal issues - Continue Creon - Add scheduled Bentyl - Fecal elastase, IBD, SGI, are pending as ordered at last hospitalization by GI - Stool studies were negative for infectious etiology at her his last hospitalization Decompensated alcoholic liver cirrhosis/hepatomegaly - Potentially has some functioning liver - no marked cirrhosis type morphology noted on imaging - No significant splenomegaly - Lasix IV push twice daily 40 mg - Aldactone on hold due to blood pressure issues - Paracentesis performed on 07/01/2024 with 1700 cc of fluid removed--> fluid studies were not sent as he recently had this done - GI consult placed Chronic macrocytic anemia - Baseline seems to be between 8 and 10 -Hemoglobin has dropped some but no signs of acute bleeding--> patient remains volume overloaded - Repeat CBC in a.m. as I hope we would be able to diurese on fluid today andthat should make a difference in his hemoglobin - EGD performed on 06/27/2024 and showed a normal esophagus with type I isolated gastric varices without bleeding, portal hypertensive gastropathy that was biopsied and no gross lesions in the entire duodenum - No signs of blood loss Thrombocytopenia - Appears to be chronic and stable - Highly suspect related to liver disease but could be bone marrow suppression from alcohol use - Per discussion patient is not currently using significant abe of alcohol - Repeat lab in a.m. CKD stage II -Serum creatinine stable at 1.22 - Monitor closely with ongoing diuresis DM-2 - Continue basal insulin 10 units daily--> blood sugar this morning was slightlyon the low side but yesterday was high will continue this and continue to monitor closely - Continue home Farxiga - Continue SSI - Hold oral agents other than Farxiga - Carb controlled diet - Accu-Cheks as ordered CAD/essential hypertension/hyperlipidemia -Hold home hydralazine -Continue home metoprolol but with parameters -Hold home Aldactone -Hold home Lasix - As needed hydralazine to continue - Continue atorvastatin -Echocardiogram is pending Diabetic neuropathy -Continue home gabapentin monitor for need of renally dosing GERD -Continue home Protonix History of alcohol abuse -patient without any current significant alcohol use - continue p.o. thiamine and folate History of aortic valve replacement - Bioprosthetic valve in 2017 with mechanical valve prior to that - Patient with cardiac murmur -Echo is pending History of sick sinus syndrome - Continue home metoprolol - Previous pacemaker History of AAA/thoracic aortic aneurysm - Had thoracic dissection and was treated at [facility] History of heroin abuse - Remote - patient states he has been clean for approximately 10 years Tobacco abuse - Encouraged cessation - nicotine patch replacement available DVT prophylaxis -Platelet count remains greater than 70,000 -Start enoxaparin 40 daily CODE STATUS - Full code Charges/Coding Visit Charges Inpatient E&M: 99077 Subs Hosp L2 07/02/24 1147 <Electronically signed by Melonie De La Rosa DO> Cosigner Signature (if applicable): CC: ~ Signed [facility] Work Phone: [phone]) 502-540805-24-2025 Progress note Author Melonie De La Rosa [facility] Note Date/Time July 01, 2024 1:59p m [facility] Medical Records Department [address] [place] [address] Progress Note - Hospitalist 07/01/24 0749 MR#: [id number] Acct: [id number] Name: ANALILIA MELENDREZ Rep #:[id number] : 1960 63 From: Melonie De La Rosa DO PCP: ALAN Wilde Status:ADM I N Location: [place] [address] Reason for Visit Reason for Visit: Abdominal pain Subjective Subjective Patient states he still having intermittent abdominal pain. We were able to do a paracentesis today for removal of 1700 cc. Patient states he was not sure whyhe did not take his Lasix and Aldactone when he got home. He states he thinks he needs his cousin to help him set up his medications when he goes home this time. We did discuss the importance of compliance with medications to avoid recurrent hospitalizations. Objective Data Objective Data Vital Signs: Vital Signs Temp Pulse Resp BP Pulse Ox O2 Del Method O2 Flow Rate 97.0 F L 72 18 116/84 H 95 Nasal Cannula 2 07/01/24 03:06 07/01/24 06:08 07/01/24 03:06 07/01/24 06:08 07/01/24 03:06 07/01/24 03:06 07/01/24 03:06 Oxygen Flow Rate (L/min) 2 Oxygen Delivery Method Nasal Cannula Weight: 77.2 kg Body Mass Index (BMI) 23.7 Intake & Output: Intake and Output for Last 24 Hours 06/29/24 06/30/24 07/01/24 23:59 23:59 23:59 Intake Total 100 / 100 Output Total 400 / 400 450 / 450 Balance -300 / -300 -450 / -450 Lab / Micro Data 07/01/24 04:55 07/01/24 04:55 Labs: Laboratory Results - last 24 hr 06/30/24 15:58: WBC 7.0, RBC 2.82 L, Hgb 10.2 L, Hct 31.1 L, MCV 110.3 H, MCH 36.2 H, MCHC 32.8, RDW Std Deviation 66.4 H, RDW Coeff of [place] 16.2 H, Plt Count 158, MPV 11.7, Immature Gran % (Auto) 0.300, Neut % (Auto) 75.0 H, Lymph % (Auto) 14.4 L, [place] % (Auto) 9.1, Eos % (Auto) 0.3, Baso % (Auto) 0.9, Absolute Neuts (auto) 5.3, Absolute Lymphs (auto) 1.01, Nucleated RBC % 0, Polychromasia 2+, Anisocytosis 2+, PT 15.9 H, INR 1.2, APTT 29.0, Sodium 135, Potassium 4.2, Chloride 101, Carbon Dioxide 24.7, Anion Gap 9, BUN 11, Creatinine 1.41 H, EstimCreat Clear Calc 58.60, Est GFR (MDRD) Non-Af 57 L, BUN/Creatinine Ratio 7.7 L, Glucose 159 H, Lactic Acid 1.4, Calcium 8.2, Magnesium 1.6, Total Bilirubin 0.45, Direct Bilirubin 0.27, AST 55 H, ALT 34, Alkaline Phosphatase 117, [place] [address] H, Total Protein 5.1 L, Albumin 2.5 L, Globulin 2.6, Lipase 6 L, Ethyl Alcohol < 10.1 06/30/24 16:50: Urine Color Yellow, Urine Clarity Sl. Cloudy, Urine pH 6.0, Ur Specific [place] 1.020, Urine Protein 30 H, Urine Glucose (UA) Normal, Urine Ketones 5 H, Urine Occult Blood Negative, Urine Nitrite Negative, Urine Bilirubin 1 H, Urine Urobilinogen Normal, Ur Leukocyte Esterase 25 H, Urine RBC 0-5 SEEN, Urine WBC 0-5 SEEN, Ur Squamous Epith Cells 0-5 SEEN, Urine Bacteria 0SEEN, Urine Mucus 0 SEEN 06/30/24 21:00: Troponin T High Sens 93 H* 06/30/24 21:34: POC Glucose 123 H 06/30/24 22:54: Troponin T Hi Sens 2 Hr 98 H* 07/01/24 01:00: Troponin T Hi Sens 4Hr 97 H* 07/01/24 04:55: WBC 4.8, RBC 2.23 L, Hgb 8.0 L, Hct 24.4 L, MCV 109.4 H, MCH 35.9 H, MCHC 32.8, RDW Std Deviation 65.7 H, RDW Coeff of [place] 16.4 H, Plt Count 110 L, MPV 11.4, Immature Gran % (Auto) 0.200, Neut % (Auto) 68.9, Lymph % (Auto) 19.3, [place] % (Auto) 9.8, Eos % (Auto) 1.0, Baso % (Auto) 0.8, Absolute Neuts (auto) 3.3, Absolute Lymphs (auto) 0.93, Nucleated RBC % 0, Differential Comment SCANNED, Anisocytosis 1+, Macrocytosis 1+, Sodium 136, Potassium 4.2, Chloride 103, Carbon Dioxide 25.9, Anion Gap 7, BUN 10, Creatinine 1.28 H, EstimCreat Clear Calc 64.55, Est GFR (MDRD) Non-Af 64, BUN/Creatinine Ratio 8.0 L, Glucose 256 H, Calcium 7.7, Phosphorus 3.1, Total Bilirubin 0.36, AST 43 H, ALT 25, Alkaline Phosphatase 87, Total Protein 4.4 L, Albumin 2.4 L, Globulin 1.9 L,Albumin/Globulin Ratio 1.3 07/01/24 06:01: POC Glucose 238 H ABG Data ABG results: ABG 06/30/24 20:05 Specimen Type ROSA Sample Site Not entered VBG pH 7.34 VBG pO2 24 L VBG HCO3 28 H VBG Total CO2 29 VBG O2 Sat (Calc) 37 L VBG Base Excess 2 POC Mix VBG pCO2 Pt Tmp 51.8 H O2 Delivery Device Room Air Radiography Diagnostic Testing: Radiology Impression Abdomen/Pelvis CT 06/30/24 15:59 IMPRESSION: 1. Persistent bowel wall thickening of the cecum, with slight interval decrease in wall thickening involving the remainder of the small and large bowel compared to CT on 06/25/2024. Findings may again be related to fluid overload, though colitis could appear similar. 2. Moderate to large volume of ascites, unchanged. 3. Moderate bilateral pleural effusions are increased from 06/25/2024. 4. Hypodensity of the right and caudate lobes of the liver, which could be the result of geographic hepatic steatosis or perfusion abnormality. Portal vein appears patent. 5. Sequela of chronic pancreatitis. Reading Location: [facility] Chest X-Ray 06/30/24 17:05 IMPRESSION: 1. Moderate bilateral pleural effusions. 2. Linear opacity at the left mid lung zone may represent extension of pleural fluid, atelectasis, or infection. 3. Nodular opacities at the right perihilar region, possibly calcified lymph nodes. Consider CT Chest if patient has risk factors for malignancy. 4. Cardiomegaly. Reading Location: [id number] Physical Exam Const alert, oriented x3, no apparent distress and average body habitus; Negative for healthy appearing Constitutional Narrative: Middle-aged, white male, lying in bed, appears older than stated age, lying in bed with nursing at bedside, does not appear uncomfortable, not toxic HEENT head/scalp atraumatic and moist oral mucous membranes HEENT Narrative: Mallampati is 2-3, no thrush Head and Scalp: normocephalic Resp normal respiratory effort, no retractions, no use of accessory muscles and clearto auscultation bilaterally Resp Narrative: Diffusely diminished with more diminished at bases bilaterally Auscultation: Negative for rales, rhonchi or wheezes Cardio regular rate, regular rhythm, S1 normal heart sound, no rub, no gallops and no clicks; Negative for S2 normal heart sound or no murmurs Cardio Narrative: 3 out of 6 systolic murmur, loudest at right upper sternal border, S2 is soft, radiates to bilateral carotids GI normal to inspection, nondistended, normoactive bowel sounds and soft to palpation GI Narrative: Positive fluid wave, mild distention, diffuse mild tenderness with no point tenderness Extremity Extremity Narrative: Trace to 1+ bilateral lower extremity pitting edema, no cyanosis or clubbing Neuro oriented x3, moves all extremities and no focal motor deficits Neuro Narrative: No asterixis Speech: speech normal Psych affect normal Psych Narrative: Pleasant, interacts appropriately Assessment & Plan Assessment/Plan (1) Elevated troponin: (2) Medically noncompliant: (3) Pleural effusion: (4) Hypoxia: (5) Volume overload: QUALIFIERS: Hypervolemia type: other Qualified Code(s): E87.79 - Other fluid overload PLAN: Plan Acute hypoxia secondary to bilateral pleural effusions - Etiology is unclear - BNP is elevated however patient also has liver disease - Check echocardiogram - Paracentesis as ordered - No thoracentesis for now - IV Lasix 40 push twice daily - Wean oxygen as able - Was 87% on room air in the emergency department - I-S and Acapella -Patient was noncompliant with diuretic therapy at discharge Elevated troponin - No chest pain - Echocardiogram is pending - Highly suspect this is demand ischemia related to his hypoxia Chronic abdominal pain - Like related to chronic alcoholic pancreatitis - Continue Creon - Fecal elastase, IBD, SGI, are pending as ordered at last hospitalization by GI - Stool studies were negative for infectious etiology at her his last hospitalization Decompensated alcoholic liver cirrhosis/hepatomegaly - Potentially has some functioning liver - no marked cirrhosis type morphology noted on imaging - No significant splenomegaly - Lasix IV push twice daily 40 mg - Continue Aldactone but increase to 25 mg p.o. twice daily - Paracentesis performed today by me with 1700 cc of fluid removed - Will consult gastroenterology tomorrow Chronic macrocytic anemia - Baseline seems to be between 8 and 10 - Repeat CBC in a.m. - EGD performed on 06/27/2024 and showed a normal esophagus with type I isolated gastric varices without bleeding, portal hypertensive gastropathy that was biopsied and no gross lesions in the entire duodenum - No signs of blood loss Thrombocytopenia - Appears to be chronic and stable - Highly suspect related to liver disease but could be bone marrow suppression from alcohol use - Per discussion patient is not currently using significant abe of alcohol - Repeat lab in a.m. CKD stage II - Serum creatinine is close to baseline - Continue diuretic therapy and monitor closely DM-2 - Continue basal insulin 10 units daily - Restart home Farxiga - Continue SSI - Hold oral agents other than Farxiga - Carb controlled diet - Accu-Cheks as ordered CAD/essential hypertension/hyperlipidemia - Continue home hydralazine - Continue home metoprolol - Continue home Aldactone - Continue home Lasix - As needed hydralazine to continue - Continue atorvastatin - Check echocardiogram Diabetic neuropathy -Continue home gabapentin GERD -Continue home Protonix History of alcohol abuse -patient without any current significant alcohol use - continue p.o. thiamine and folate History of aortic valve replacement - Bioprosthetic valve in 2017 with mechanical valve prior to that - Patient with cardiac murmur - Check echocardiogram History of sick sinus syndrome - Continue home metoprolol - Previous pacemaker History of AAA/thoracic aortic aneurysm - Had thoracic dissection and was treated at [facility] History of heroin abuse - Remote - patient states he has been clean for approximately 10 years Tobacco abuse - Encouraged cessation - nicotine patch replacement available DVT prophylaxis -Platelet count remains greater than 70,000 -Start enoxaparin 40 daily CODE STATUS - Full code Charges/Coding Visit Charges Inpatient E&M: 50092 Subs Hosp L2 07/01/24 1359 <Electronically signed by Melonie De La Rosa DO> Cosigner Signature (if applicable): CC: ~ Signed [facility] Work Phone: 1(119) 586-348705-24-2025 Procedure [facility] 07-01-2024 History and physical note Author Conrado Fraser [facility] Note Date/Time July 01, 2024 6:46a m [facility] Medical Records Department [address] [place] [address] H&P Exam - Hospitalist 06/30/24 1931 MR#: [id number] Acct: [id number] Name: ANEESHANALILIAHERMANN KAUFFMAN Rep #:[id number] : 1960 63 From: Conrado Gonzalez DO PCP: VINOD WildeC Status:ADM I N Location: [place] [address] HPI - General General Date of Admission: 06/30/24 Date of Service: 06/30/24 Chief Complaint: SOB, Abdominal Pain and Worsening Abdominal Distention. HPI Narrative ANALILIA MELENDREZ, is a 63 M with a past medical history of essential hypertension; on metoprolol twice daily, hydralazine 3 times daily, furosemide and spironolactone, hyperlipidemia; on atorvastatin, chronic tobacco abuse, history of heroin abuse; with patient denying abuse for ~10 years, DM-2; on insulin glargine 10 units sq daily, insulin lispro AC/HS, dapagliflozin and metformin, diabetic neuropathy; on gabapentin, CAD; s/p [place], history of mechanical aortic valve replacement (2014) followed by bioprosthetic aortic valve replacement (~2016), history of SSS; s/p PPM (2016), history of RBBB, history of NSVT, history of AAA, history of thoracic aortic aneurysm with dissection (~2005 & ~2016 at [facility]), chronic EtOH abuse; with patient admitting to~2-3 forty ounce beers daily on supplemental thiamine and folate, history of alcoholic hepatitis, history of chronic pancreatitis, history of seizures; likely due to EtOH withdrawal, history of MALIK, GERD with hiatal hernia; on pantoprazole twice daily, history of hernia; s/p repair, generalized anxiety andrecent admission here from June 25, 2024 to June 28, 2024 for treatment of Critical Hypokalemia in the setting of Chronic Diarrhea along with Lactic Acidosis in the setting of Chronic EtOH Abuse with CT evidence of diffuse small bowel and colonic wall thickening, likely secondary to ascites with hepatomegalyand diffuse steatosis with patient subsequently undergoing paracentesis on June 26, 2024 that yielded ~2.5L of aspirate and EGD on June 27, 2024 that revealed normal esophagus with Type-I isolated gastric varices in the fundus without bleeding along with evidence of portal hypertensive gastropathy with patient started on Creon 24K units TID in addition to furosemide and spironolactone who now re-presents to [facility] ER complaining of SOB, abdominal pain and worsening abdominal distention. Mr. Melendrez reports that he has had problems ever since he was discharged with the rapid-onset of abdominal distention and weight gain with generalized pain that made it difficult for him to roll over. He also admits to having minimalbowel movements and he appears to not have been taking his diuretics as prescribed in the setting of previously known medical noncompliance. More specifically, he remembers taking some tramadol and his other medications - but he does not remember any furosemide or spironolactone. Shortly after arrival hewas noted to have an oxygen saturation of ~83% prompting application of supplemental oxygenation and re-hospitalization. He admits to urinary frequencybut there was no report of associated fevers, chills, visual changes, nausea, vomiting, diarrhea, chest pain, dysuria, hematuria, rash or headache. In the ERhe was noted to have a CT scan of the abdomen and pelvis that revealed persistent bowel wall thickening of the cecum, with interval decrease in wall thickening involving the remainder of small and large bowel compared to previousCT on June 22, 2024 with [id number] volume ascites, unchanged in addition to moderate bilateral pleural effusions are increased from previous CT with hypodensity of the Right and caudate lobes of he liver which could be the resultof geographic hepatic steatosis or perfusion abnormality. He was then diagnosed with Acute Volume Overload with reaccumulation of Ascites and worsening Pleural Effusions due to Medical Noncompliance with diuretic therapy complicated by clinical evidence of Acute Respiratory Insufficiency requiring 2L NC with a negative UDS and undetectable SUSAN and he was then admitted to the general medical floor for ongoing care for a stay that is expected to extend beyond 2 midnights. [facility] Medical History MALIK (acute kidney injury) Seizures Alcoholic hepatitis Chronic pancreatitis Gastric wall thickening Alcohol dependence Abdominal ascites Anxiety Diabetes Pancreatitis Myocardial infarct Pacemaker AAA (abdominal aortic aneurysm) Admitted to alcohol detoxification center Alcohol abuse Hx of hypercholesterolemia History of diabetes mellitus Alcohol dependence Substance abuse Smoker Alcoholism Right bundle branch block (RBBB) Non-sustained ventricular tachycardia Thoracic aortic aneurysm SVT (supraventricular tachycardia) Ascending aortic dissection (~2005) Pure hypercholesterolemia Adrenal nodule Hiatal hernia Left carotid bruit Cardiac pacemaker in situ (~06/2016) Essential hypertension Pacemaker Sick sinus syndrome Tobacco use HTN (hypertension) Diabetes mellitus, type II Home Medications ?Medication ?Instructions ?Recorded ?Last Taken ?Type atorvastatin 10 mg tablet 10 mg PO DAILY CHOLESTEROL 0 10/17/20 04/19/23 History hydralazine 25 mg tablet 25 mg PO TID BP 10/17/2001/01 History dapagliflozin propanediol 10 mg 10 mg PO DAILY DIABETE S 09/30/21 04/19/23 History tablet (Farxiga) multivitamin 1 tab PO DAILY SUPPLEMENT 11/10/21 History gabapentin 300 mg capsule 300 mg PO DAILY NEUROPATHY 1 Unknown History insulin glargine 100 unit/mL (3 5 unit subcut 1200 MAC BETES 11/14/22 04/19/23 History mL) subcutaneous pen (Lantus Solostar U-100 Insulin) metformin 500 mg tablet,extended 500 mg PO BID DIABETE S 11/15/22 04/19/23 History release 24 hr L.acidophil,salivari-Bifido 2 cap PO BID #0 caps 05/19 Unknown Rx bifidum-Strep thermoph 175 mg capsule folic acid 1 mg tablet 1 mg PO DAILY@0800 supplemen t #0 05/20/23 Unknown Rx tabs furosemide 40 mg tablet 40 mg PO DAILY diuretic #30 tabs 05/20/23 Unknown Rx insulin lispro 100 unit/mL See Protocol subcut ACHS #0 mL 05/20/23 Unknown Rx subcutaneous pen (Humalog KwikPen (U-100) Insulin) spironolactone 25 mg tablet 12.5 mg (1/2 x 25 mg) PO D AILY 05/20/23 Unknown Rx diuretic #30 tabs thiamine HCl (vitamin B1) 100 mg 100 mg PO DAILYCM vit padilla #0 tabs 05/20/23 Unknown Rx tablet (Vitamin B-1) pantoprazole 40 mg tablet,delayed 40 mg PO BID reflux #60 tabs 06/27/23 Unknown Rx release efkatb-eawqqqin-payhlnx 1 cap PO TIDCM #90 caps 06/09 03/04 Unknown Rx 24,000-76,000-120,000 unit capsule,delayed rel (Creon) tramadol 50 mg tablet 50 mg PO Q8H PRN pain #9 tab s 06/28/24 Unknown Rx ferrous sulfate 325 mg (65 mg 325 mg PO DAILY 06/30/24 Unknown History iron) tablet (FeroSul) metoprolol tartrate 50 mg tablet 50 mg PO BID 06/30/24 Unknown History ramipril 10 mg capsule 10 mg PO DAILY 06/30/24 Unkn own History Allergy/AdvReac Type Severity Reaction Status Date / Time No Known Allergies Allergy Verified 06/30/24 15:18 Family History Father CAD (coronary artery disease) Mother Dementia Surgical History H/O cardiac catheterization History of aortic aneurysm repair (~2017) History of cataract surgery History of hernia repair History of aortic valve replacement with bioprosthetic valve (~2017) H/O aortic valve replacement Social History household members: family housing: house Smoking Status: Current every day smoker tobacco type: cigarettes alcohol intake: current alcohol intake frequency: 0-2 drinks per day details: Reports currently ~ 2 tall boys daily. substance use type: former substance user caffeine: Yes Type: coffee Number of servings: 3 ROS ROS Narrative Review of Systems: Constitutional: Patient admits to weight gain but he denies fever or chills. Eyes: Patient denies changes in vision or discharge from eyes. ENT: Patient denies runny nose, sore throat or ear pain. Resp: Patient admits to HENRY that progressed to SOB at rest. CV: Patient denies chest pain, palpitations or heart racing. GI: Patient admits to abdominal pain, distention and constipation as per HPI. : Patient admits to urinary frequency but he denies dysuria or hematuria. MSK: Patient denies arthralgias or myalgias. Skin: Patient denies rash, abscess, wounds or jaundice. Psych: Patient denies symptoms of uncontrolled depression or anxiety. Neuro: Patient denies headache, paresthesias or focal neurologic deficits. Allergy: Patient denies lip swelling, tongue swelling or urticaria. Hematology: Patient denies easy bleeding or easy bruisability. Endocrinology: Patient admits to polyuria but be denies polydipsia, polyphagia or heat/cold intolerance. 14 point ROS otherwise negative except for positives noted above. Vital Signs Vital Signs Vital Signs: 06/30/24 15:19 06/30/24 16:45 06/30/24 16:46 Temperature 97.2 F L Temperature Source Temporal Pulse Rate 54 L Respiratory Rate 18 Blood Pressure 141/97 H Blood Pressure Mean 111 Pulse Ox 100 83 95 Oxygen Delivery Method Room Air Room Air Nasal Cannula Oxygen Flow Rate (L/min) 2 06/30/24 18:00 06/30/24 18:18 06/30/24 19:00 Temperature 98.0 F Temperature Source Pulse Rate 99 60 Respiratory Rate 17 18 Blood Pressure 132/92 H 135/90 H Blood Pressure Mean 105 105 Pulse Ox 91 88 91 Oxygen Delivery Method Room Air Room Air Oxygen Flow Rate (L/min) Weight Weight: 175 lb 9.6 oz Body Mass Index (BMI) 24.5 Physical Exam Const alert, oriented x3 and average body habitus Constitutional Narrative: Mild distress noted. General Appearance: cooperative HEENT normocephalic, head/scalp atraumatic, hearing grossly normal bilaterally and moist oral mucous membranes Eyes PERRL, EOMs intact bilaterally and conjunctivae normal Neck no lymphadenopathy, supple and no JVD Resp Resp Narrative: Diminished breath sounds at bases. Cardio regular rate and regular rhythm Cardio Narrative: ~3/6 SOURAV @ LSB. GI soft to palpation and non-tender GI Narrative: Patient noted to have ascites with fluid wave and distention. Extremity normal to inspection and full ROM Extremity Narrative: Patient has ~1+ edema in all 4 extremities. Skin Skin Narrative: Areas of petechiae and bruising are noted on face and extremities. Neuro oriented x3, CN's II-XII intact bilaterally, moves all extremities and no focal motor deficits Sensorium / Orientation: awake, alert, oriented to person, oriented to place andoriented to time Speech: speech normal Psych affect normal Results Medical Records Data Attestation: I reviewed the patient's medical records Lab / Micro Data Attestation: I reviewed the patient's lab results. 07/01/24 04:55 07/01/24 04:55 Labs: Laboratory Results - last 24 hr 06/30/24 15:58: WBC 7.0, RBC 2.82 L, Hgb 10.2 L, Hct 31.1 L, MCV 110.3 H, MCH 36.2 H, MCHC 32.8, RDW Std Deviation 66.4 H, RDW Coeff of Kalpana 16.2 H, Plt Count 158, MPV 11.7, Immature Gran % (Auto) 0.300, Neut % (Auto) 75.0 H, Lymph % (Auto) 14.4 L, Erath % (Auto) 9.1, Eos % (Auto) 0.3, Baso % (Auto) 0.9, Absolute Neuts (auto) 5.3, Absolute Lymphs (auto) 1.01, Nucleated RBC % 0, Polychromasia 2+, Anisocytosis 2+, PT 15.9 H, INR 1.2, APTT 29.0, Sodium 135, Potassium 4.2, Chloride 101, Carbon Dioxide 24.7, Anion Gap 9, BUN 11, Creatinine 1.41 H, EstimCreat Clear Calc 58.60, Est GFR (MDRD) Non-Af 57 L, BUN/Creatinine Ratio 7.7 L, Glucose 159 H, Lactic Acid 1.4, Calcium 8.2, Total Bilirubin 0.45, Direct Bilirubin 0.27, AST 55 H, ALT 34, Alkaline Phosphatase 117, Total Protein 5.1 L,Albumin 2.5 L, Globulin 2.6, Lipase 6 L, Ethyl Alcohol < 10.1 06/30/24 16:50: Urine Color Yellow, Urine Clarity Sl. Cloudy, Urine pH 6.0, Ur Specific [place] 1.020, Urine Protein 30 H, Urine Glucose (UA) Normal, Urine Ketones 5 H, Urine Occult Blood Negative, Urine Nitrite Negative, Urine Bilirubin 1 H, Urine Urobilinogen Normal, Ur Leukocyte Esterase 25 H, Urine RBC 0-5 SEEN, Urine WBC 0-5 SEEN, Ur Squamous Epith Cells 0-5 SEEN, Urine Bacteria 0SEEN, Urine Mucus 0 SEEN Imaging Radiology Impression Abdomen/Pelvis CT 06/30/24 15:59 IMPRESSION: 1. Persistent bowel wall thickening of the cecum, with slight interval decrease in wall thickening involving the remainder of the small and large bowel compared to CT on 06/25/2024. Findings may again be related to fluid overload, though colitis could appear similar. 2. Moderate to large volume of ascites, unchanged. 3. Moderate bilateral pleural effusions are increased from 06/25/2024. 4. Hypodensity of the right and caudate lobes of the liver, which could be the result of geographic hepatic steatosis or perfusion abnormality. Portal vein appears patent. 5. Sequela of chronic pancreatitis. Reading Location: [id number] Chest X-Ray 06/30/24 17:05 IMPRESSION: 1. Moderate bilateral pleural effusions. 2. Linear opacity at the left mid lung zone may represent extension of pleural fluid, atelectasis, or infection. 3. Nodular opacities at the right perihilar region, possibly calcified lymph nodes. Consider CT Chest if patient has risk factors for malignancy. 4. Cardiomegaly. Reading Location: [facility] Assessment & Plan Assessment/Plan (1) Volume overload: QUALIFIERS: Hypervolemia type: other Qualified Code(s): E87.79 - Other fluid overload (2) Elevated troponin: (3) Ascites due to alcoholic cirrhosis: (4) Pleural effusion: (5) Respiratory insufficiency: (6) Medically noncompliant: (7) Conjunctivitis: QUALIFIERS: Acute conjunctivitis type: unspecified Conjunctivitistype: acute Laterality: right Qualified Code(s): H10.31 - Unspecified acute conjunctivitis, right eye PLAN: Plan 1. Acute Volume Overload with reaccumulation of Ascites and worsening Pleural Effusions with corresponding NT pro-BNP II of 26,213 pg/mL present on admission with elevated troponin likely due to Acute Cardiac Strain - Admit to general medical floor with telemetric monitoring. Continue IV furosemide and spironolactone and follow strict I's & O's. Patient was treated in ER with IV albumin to expand intravascular volume to allow for diuresis and paracentesis. Patient would likely benefit from repeat paracentesis when these services becomeavailable. Give acetaminophen as needed for pain or fever. 2. Acute Respiratory Insufficiency due to #1 - Wean supplemental oxygen. 3. Medical Noncompliance with diuretics precipitating #1 & #2 - Patient was encouraged to take his diuretics as prescribed to avoid serial readmission. 4. Conjunctivitis OD this admission adding to the medical complexity of #1 - #3- Patient started on ciprofloxacin eye drops. 5. Recent admission here from June 25, 2024 to June 28, 2024 for treatment of Critical Hypokalemia in the setting of Chronic Diarrhea along with Lactic Acidosis in the setting of Chronic EtOH Abuse with CT evidence of diffuse small bowel and colonic wall thickening, likely secondary to ascites with hepatomegalyand diffuse steatosis with patient subsequently undergoing paracentesis on June 26, 2024 that yielded ~2.5L of aspirate and EGD on June 27, 2024 that revealed normal esophagus with Type-I isolated gastric varices in the fundus without bleeding along with evidence of portal hypertensive gastropathy with patient started on Creon 24K units TID in addition to furosemide and spironolactone adding to the burden of disease outlined from #1 - #4 - Noted. 6. Chronic EtOH abuse; with patient admitting to ~2-3 forty ounce beers daily on supplemental thiamine and folate with history of alcoholic hepatitis, historyof chronic pancreatitis and history of seizures; likely due to EtOH withdrawal - Noted with undetectable SUSAN and lipase of 6 U/L present on admission. Patient states he only had 1 tall boy few days ago. Nevertheless, he will be covered with phenobarbital taper to prevent potential withdrawal. 7. Essential hypertension; on metoprolol twice daily, hydralazine 3 times daily, furosemide and spironolactone - Maintain home regimen. 8. Hyperlipidemia; on atorvastatin - Resume statin. 9. Chronic tobacco abuse - Tobacco Cessation will be strongly encouraged with Nicotine patch offered to control cravings. 10. History of heroin abuse; with patient denying abuse for ~10 years - Noted with negative UDS. 11. DM-2; on insulin glargine 10 units sq daily, insulin lispro AC/HS, dapagliflozin and metformin plus diabetic neuropathy; on gabapentin - Resume current regimen. 12. CAD; s/p AZ - Stable. 13. History of mechanical aortic valve replacement (2014) followed by bioprosthetic aortic valve replacement (~2016) - Noted. 14. History of SSS; s/p PPM (2017) - Noted. 15. History of RBBB - Noted. 16. History of NSVT - Noted. 17. History of AAA - Stable. 18. History of thoracic aortic aneurysm with dissection (~2005 & ~2016 at [facility]) - Stable. 19. History of MALIK - Noted. 20. GERD with hiatal hernia; on pantoprazole twice daily - Resume PPI. 21. History of hernia; s/p repair - Noted. 22. Generalized anxiety - Give oral hydroxyzine prn for breakthrough symptoms. 23. DVT prophylaxis - SCD's only with impending repeat paracentesis. Total time: Approximately (but not less than) 75 minutes. Charges/Coding Visit Charges Inpatient E&M: 60530 Init Hosp L3 07/01/24 0646 <Electronically signed by Conrado Pro DO> Cosigner Signature (if applicable): CC: ALAN Wagner; Dr. Conrado Pro DO~ Signed [facility] Work Phone: [phone] Discharge summary Author [facility] Note Date/Time June 30, 2024 11:11 pm [facility] Medical Records Department [address] [place] [address] Emergency Department Summary 06/30/24 MR#: [id number] Acct: [id number] Name: ANALILIA MELENDREZ Rep #:[id number] : 1960 63 From: Narendra Rosado PCP: Marianna Wagner NP-C Status:ADM I N Location: [place] [address] HPI HPI - GI History of Present Illness Chief Complaint: Abd Pain Informant: patient Narrative Narrative: 63-year-old male presenting to the emergency room reporting abdominal distentionweight gain and abdominal discomfort that is preventing him from rolling over. Patient states that he was discharged from the hospital on Wednesday. He was reportedly admitted into the hospital with a history of chronic pancreatitis lactic acidosis and ascites/alcoholic cirrhosis. He was seen in consultation with Dr. Espitia. The patient states that that he underwent a procedure and took2 L of fluid off of his abdomen. Patient states he has had minimal bowel movements. He states that he has difficulty urinating that he feels frequently he needs to go but nothing comes out. Patient states he is post to follow-up with gastroenterology next Wednesday but he called them today and they advised him to come to emergency. It is approximately 1600 hrs. on Wednesday afternoon at the time of this visit. I spoke with the hospitalist who discharged him he notes that the day of discharge the patient was eating and having bowel movements. There was no indication of renal involvement with normal creatinine. There is a history of medical noncompliance. He was noted to have a lactic acidosis which was in part contributed to metformin use trended down towards the4.5 mateusz. Patient states that he is taking all medications that he was given atdischarge. Later in his ED course after he has had some time to think about it he states that he is not sure if he is taking any diuretics. He states he remembers taking some tramadol that was prescribed but does not recall anything that would make him urinate. [facility] Medical History MALIK (acute kidney injury) Seizures Alcoholic hepatitis Chronic pancreatitis Gastric wall thickening Alcohol dependence Abdominal ascites Anxiety Diabetes Pancreatitis Myocardial infarct Pacemaker AAA (abdominal aortic aneurysm) Admitted to alcohol detoxification center Alcohol abuse Hx of hypercholesterolemia History of diabetes mellitus Alcohol dependence Substance abuse Smoker Alcoholism Right bundle branch block (RBBB) Non-sustained ventricular tachycardia Thoracic aortic aneurysm SVT (supraventricular tachycardia) Ascending aortic dissection (~2005) Pure hypercholesterolemia Adrenal nodule Hiatal hernia Left carotid bruit Cardiac pacemaker in situ (~06/2016) Essential hypertension Pacemaker Sick sinus syndrome Tobacco use HTN (hypertension) Diabetes mellitus, type II Home Medications ?Medication ?Instructions ?Recorded ?Last Taken ?Type atorvastatin 10 mg tablet 10 mg PO DAILY CHOLESTEROL 0 10/17/20 04/19/23 History hydralazine 25 mg tablet 25 mg PO TID BP 10/17/2001/01 History dapagliflozin propanediol 10 mg 10 mg PO DAILY DIABETE S 09/30/21 04/19/23 History tablet (Farxiga) multivitamin 1 tab PO DAILY SUPPLEMENT 11/10/21 History gabapentin 300 mg capsule 300 mg PO DAILY NEUROPATHY 1 Unknown History insulin glargine 100 unit/mL (3 5 unit subcut 1200 MAC BETES 11/14/22 04/19/23 History mL) subcutaneous pen (Lantus Solostar U-100 Insulin) metformin 500 mg tablet,extended 500 mg PO BID DIABETE S 11/15/22 04/19/23 History release 24 hr L.acidophil,salivari-Bifido 2 cap PO BID #0 caps 05/19 Unknown Rx bifidum-Strep thermoph 175 mg capsule folic acid 1 mg tablet 1 mg PO DAILY@0800 supplemen t #0 05/20/23 Unknown Rx tabs furosemide 40 mg tablet 40 mg PO DAILY diuretic #30 tabs 05/20/23 Unknown Rx insulin lispro 100 unit/mL See Protocol subcut ACHS #0 mL 05/20/23 Unknown Rx subcutaneous pen (Humalog KwikPen (U-100) Insulin) spironolactone 25 mg tablet 12.5 mg (1/2 x 25 mg) PO D AILY 05/20/23 Unknown Rx diuretic #30 tabs thiamine HCl (vitamin B1) 100 mg 100 mg PO DAILYCM vit padilla #0 tabs 05/20/23 Unknown Rx tablet (Vitamin B-1) pantoprazole 40 mg tablet,delayed 40 mg PO BID reflux #60 tabs 06/27/23 Unknown Rx release oxzoru-vhssgrfc-fbtqnpr 1 cap PO TIDCM #90 caps 06/09 03/04 Unknown Rx 24,000-76,000-120,000 unit capsule,delayed rel (Creon) tramadol 50 mg tablet 50 mg PO Q8H PRN pain #9 tab s 06/28/24 Unknown Rx ferrous sulfate 325 mg (65 mg 325 mg PO DAILY 06/30/24 Unknown History iron) tablet (FeroSul) metoprolol tartrate 50 mg tablet 50 mg PO BID 06/30/24 Unknown History ramipril 10 mg capsule 10 mg PO DAILY 06/30/24 Unkn own History Allergy/AdvReac Type Severity Reaction Status Date / Time No Known Allergies Allergy Verified 06/30/24 15:18 Family History Father CAD (coronary artery disease) Mother Dementia Surgical History H/O cardiac catheterization History of aortic aneurysm repair (~2016) History of cataract surgery History of hernia repair History of aortic valve replacement with bioprosthetic valve (~2016) H/O aortic valve replacement Social History household members: family housing: house Smoking Status: Current every day smoker tobacco type: cigarettes alcohol intake: current alcohol intake frequency: 0-2 drinks per day details: Reports currently ~ 2 tall boys daily. substance use type: former substance user caffeine: Yes Type: coffee Number of servings: 3 ROS ROS ED Constitutional Constitutional ED: Denies chills or weight loss Eyes Eyes: Denies change in vision or diplopia ENT ENT ED: Denies ear pain, rhinorrhea or sore throat Cardiovascular Cardiovascular: Denies chest pain, orthopnea, palpitations or racing heartbeat Respiratory/Chest Respiratory/Chest: Denies cough, dyspnea or orthopnea Gastrointestinal Gastrointestinal: Reports abdominal pain, constipation and other Details: Abdominal distention ; Denies diarrhea, nausea or vomiting Genitourinary Genitourinary ED: Reports urinary frequency and other Details: Decreased urinaryoutput ; Denies dysuria or hematuria Musculoskeletal Musculoskeletal: Denies arthralgias or myalgias Integumentary Denies abscess or rash Neurologic Neurologic: Denies headache(s) or weakness Psychiatric Psychiatric: Denies anxiety, depression, suicidal ideation or suicidal thoughts Endocrine Endocrinology: Denies polydipsia, polyphagia or polyuria Allergic/Immunologic Allergic/Immunologic ED: Denies mouth swelling, tongue swelling or urticaria EXAM Physical Exam Const Vital Signs: 06/30/24 15:19 06/30/24 16:45 06/30/24 16:46 Temperature 97.2 F L Temperature Source Temporal Pulse Rate 54 L Respiratory Rate 18 Blood Pressure 141/97 H Blood Pressure Mean 111 Pulse Ox 100 83 95 Oxygen Delivery Method Room Air Room Air Nasal Cannula Oxygen Flow Rate (L/min) 2 06/30/24 18:00 06/30/24 18:18 06/30/24 19:00 Temperature 98.0 F Temperature Source Pulse Rate 99 60 Respiratory Rate 17 18 Blood Pressure 132/92 H 135/90 H Blood Pressure Mean 105 105 Pulse Ox 91 88 91 Oxygen Delivery Method Room Air Room Air Oxygen Flow Rate (L/min) 06/30/24 19:00 Temperature 98.1 F Temperature Source Oral Pulse Rate 60 Respiratory Rate 18 Blood Pressure 135/90 H Blood Pressure Mean 105 Pulse Ox 91 Oxygen Delivery Method Room Air Oxygen Flow Rate (L/min) Positive well nourished and well developed General Appearance ED: well developed, NAD and pallor HEENT Reports normocephalic, head/scalp atraumatic and moist mucous membranes Eyes PERRL and EOMs intact bilaterally Neck no lymphadenopathy, supple and no JVD Resp normal respiratory effort and clear to auscultation bilaterally Cardio regular rate and regular rhythm Cardio Narrative: 3/6 systolic murmur GI GI Narrative: The abdomen is still soft it is not tense. There is some ascites noted. He does not complain of pain on palpation. Palpation: soft Back/Spine no CVA tenderness and normal ROM Extremity normal to inspection General Extremety ED: Yes edema General Extremity: edema bilateral upper extremity mild and lower extremity Details: mild Neuro oriented x3 and CN's II-XII intact bilaterally Sensorium / Orientation: alert Motor Exam: strength 5/5 throughout Psych mental status grossly normal Mood & Affect: Negative for depressed or tearful Skin no rashes or lesions noted and no wounds Skin Narrative: Areas of bruising and skin petechiae are noted on extremities and face General Skin Exam: pallor MDM MDM MDM Narrative Medical decision making narrative: Differential diagnosis includes but not limited to alcoholic cirrhosis volume overload pleural effusions ascites acute kidney injury electrolyte abnormalities My independent interpretation of the chest x-ray is bilateral pleural effusions with atelectasis. CT of the pelvis demonstrates ascites and thickened cecum. Please see radiologist full read. White count is 7 hemoglobin 10.2 platelet count of 158 INR is 1.2 creatinine is elevated compared to 2 days ago at 1.41 when it was 1.1. AST of 55 alcohol is negative. Patient has had some positional hypoxia at rest sometimes down to around 86% particular with laying flat or on his side. If I have him sitting up he is around 90%. With ambulation he drops into the 80s and becomes tachycardic around 130 he is dyspneic and then recovers with rest. He has had and his own description about 25 pound weight gain fluid but is unclear of what timeframe this is. He does appear edematous. I do not know if he has been taking his diuretic and neither does he. He would like to go home we talked about the riskbenefit of going home in the setting of an MALIK volume overloaded not knowing if he is taking his diuretics. Using shared decision making we agreed to admit thepatient for IV diuresis. History & Record Review Discussion w/independent historian: Patient Additional record(s) reviewed:: Prior inpatient record, Prior ED visit and Priorlabs Lab Data Attestation: I reviewed the patient's lab results. Labs: Laboratory Results - last 24 hr 06/30/24 06/30/24 15:58 16:50 WBC 7.0 RBC 2.82 L Hgb 10.2 L Hct 31.1 L MCV 110.3 H MCH 36.2 H MCHC 32.8 RDW Std Deviation 66.4 H RDW Coeff of Kalpana 16.2 H Plt Count 158 MPV 11.7 Immature Gran % (Auto) 0.300 Neut % (Auto) 75.0 H Lymph % (Auto) 14.4 L [place] % (Auto) 9.1 Eos % (Auto) 0.3 Baso % (Auto) 0.9 Absolute Neuts (auto) 5.3 Absolute Lymphs (auto) 1.01 Nucleated RBC % 0 Polychromasia 2+ Anisocytosis 2+ PT 15.9 H INR 1.2 APTT 29.0 Sodium 135 Potassium 4.2 Chloride 101 Carbon Dioxide 24.7 Anion Gap 9 BUN 11 Creatinine 1.41 H Estim Creat Clear Calc 58.60 Est GFR (MDRD) Non-Af 57 L BUN/Creatinine Ratio 7.7 L Glucose 159 H Lactic Acid 1.4 Calcium 8.2 Total Bilirubin 0.45 Direct Bilirubin 0.27 AST 55 H ALT 34 Alkaline Phosphatase 117 Total Protein 5.1 L Albumin 2.5 L Globulin 2.6 Lipase 6 L Urine Color Yellow Urine Clarity Sl. Cloudy Urine pH 6.0 Ur Specific [place] 1.020 Urine Protein 30 H Urine Glucose (UA) Normal Urine Ketones 5 H Urine Occult Blood Negative Urine Nitrite Negative Urine Bilirubin 1 H Urine Urobilinogen Normal Ur Leukocyte Esterase 25 H Urine RBC 0-5 SEEN Urine WBC 0-5 SEEN Ur Squamous Epith Cells 0-5 SEEN Urine Bacteria 0 SEEN Urine Mucus 0 SEEN Ethyl Alcohol < 10.1 Radiography Diagnostic Testing: Clinical Impression(s) from Imaging Studies Abdomen/Pelvis CT 06/30/24 15:59 IMPRESSION: 1. Persistent bowel wall thickening of the cecum, with slight interval decrease in wall thickening involving the remainder of the small and large bowel compared to CT on 06/25/2024. Findings may again be related to fluid overload, though colitis could appear similar. 2. Moderate to large volume of ascites, unchanged. 3. Moderate bilateral pleural effusions are increased from 06/25/2024. 4. Hypodensity of the right and caudate lobes of the liver, which could be the result of geographic hepatic steatosis or perfusion abnormality. Portal vein appears patent. 5. Sequela of chronic pancreatitis. Reading Location: [facility] Chest X-Ray 06/30/24 17:05 IMPRESSION: 1. Moderate bilateral pleural effusions. 2. Linear opacity at the left mid lung zone may represent extension of pleural fluid, atelectasis, or infection. 3. Nodular opacities at the right perihilar region, possibly calcified lymph nodes. Consider CT Chest if patient has risk factors for malignancy. 4. Cardiomegaly. Reading Location: [id number] Management Discussion w/another healthcare provider: Hospitalist Discharge Plan Dx/Rx/DC Orders Clinical Impression: Ascites due to alcoholic cirrhosis, Pleural effusion, Hypoxia, Volume overload,MALIK (acute kidney injury) Disposition Disposition: Acute Care Hospital [facility] What to do if you have Problems For any increased pain, shortness of breath, bleeding, nausea or vomiting, chestpain, or any unexpected problems, contact your Primary Care Provider. Call [facility] ([phone]) or report to the closest Emergency Room. Call 911 if necessary. 06/30/24 2311 <Electronically signed by Narendra Gonzalez DO> Cosigner Signature (if applicable): CC: VEHICLE MODIFICATION TECHNICIAN-C Marianna Wagner ~ Signed [facility] Work Phone: [phone]) 848-467405-23-2025 Radiology Diagnostic study [facility]05-23-2025 Radiology Diagnostic study [facility]05-22-2025 NoteHNO ID: [id number] Author: YESSICA UMANA LPN Service: ? Author Type: LICENSED NURSE Type: Progress Notes Filed: 06/29/2024 09:30 Note Text: TRANSITIONAL CARE MANAGEMENT (TCM) COMMUNITY MONITORING PROGRAM - [place] Provider Action/FYI: Per pt he needs to cancel appointment for today as he does not have away to the appointment today. Per pt he will call back to reschedule. SUMMARY: Pt discharged from [facility] on 06/28/2024. Admitted for: Ascites due to alcoholic cirrhosis Patient seen Inpatient TONY Visit? N/A. Patient seen ICARE Program? N/A. Contact made with patient: Yes Hi my name is Yessica Umana LPN and I am calling from the [facility] on behalf of your PCP, Marianna Wagner APRN.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 I understand you were recently in the hospital so I am calling to check in with you to ensure you are feeling well now that you?re home. Do you mind if I ask you a few questions related to your hospital stay and well-being Yes Contact with patient post discharge, spoke to patient. Patient identified by name and . Do you feel your health is BETTER, WORSE, or the SAME since leaving the hospital? Same ACTION TAKEN: Patient indicated symptoms are better or same, no action required. Continue outreach. N/A MEDICATIONS: Many patients have questions or concerns about their medications once they are home. Do you have any questions about taking your medications or which medication you should be on? No Do you need any medication refills at this time, including any of the medications you might take only when needed? No ACTION TAKEN: No action required For RNs or Pharmacy completing outreach ONLY, was a medication review completed? N/A SOCIAL: We would like to make sure you have what you need so that your basics needs are met - including your personal safety. HEALTH LEADS SCREENING TOOL QUESTIONS: Do you often feel you lack companionship? No Do you ever need help reading or understanding hospital materials? No In the last 12 months, have you changed how you take medications to save money? No In the past 12 months, has lack of transportation kept you from medical appointments, work or getting things you need like food, or supplies? No In the last 12 months, did you ever eat less than you felt you should because there wasn't enough money for food? No During the winter, do you anticipate having a problem paying your heating bill? No In the next 2 months, are you worried you might not have stable housing? No Would you like to speak with a social work garment steamer to help give you support for any of these needs? No It can be normal to feel anxious or down during a time like this. Would you like to talk to a mental health professional about how you have been feeling? No ACTION TAKEN: No action taken DISCHARGE INTRUCTIONS: Your discharge instructions / After Visit Summary (AVS) are important in guiding you through the recovery process. Do you have any questions related to your discharge instructions? No Do you have all the necessary equipment and supplies at home? Yes ACTION TAKEN: No action required WRAP AROUND SERVICES: N/A Patient educated on importance of primary care provider follow up visit as well as specialty provider follow up visits as indicated. Inform the patient that if they have any questions or concerns prior to that appointment, to call their Primary Care Provider 's office right away. Primary care provider first education provided. I would like to help you schedule a hospital follow-up virtual or telephone visit with your PCP. ACTION TAKEN: TCM Primary Care Provider Visit Scheduled: No - Sent to the scheduling pool to schedule. Your doctor would like us to remind you of the recommendations regarding the coronavirus (Covid19) outbreak: Avoid public places as much as possible. Avoid close contact (within 6 feet) with others you don't live with, especially if they are sick. Stay home if you are sick. Wash your hands regularly for at least 20 seconds with soap and water. Wear a cloth mask in public places to help reduce community spread. Do not go to your Doctor's office unless instructed to do so. For any non-emergency symptoms, call your Doctor's office to get instructions on how to manage (we might recommend a telephone or virtual visit). For emergency symptoms, proceed to Emergency Department as usual but inform them of cough and fever symptoms CHAU if present (or call on the way if possible).[facility]05-22-2025 NotePatient Outreach (AGFAMPLE) ANALILIA MELENDREZ ([id number]) 1960 M Date Time Provider Department 06/29/24 MARIANNA WAGNER During your visit today, we recorded the following information about you: Yessica Umana LPN 06/29/2024 9:30 AM Signed TRANSITIONAL CARE MANAGEMENT (TCM) COMMUNITY MONITORING PROGRAM - [place] Provider Action/FYI: Per pt he needs to cancel appointment for today as he does not have away to the appointment today. Per pt he will call back to reschedule. SUMMARY: Pt discharged from [facility] on 06/28/2024. Admitted for: Ascites due to alcoholic cirrhosis Patient seen Inpatient TONY Visit? N/A. Patient seen ICARE Program? N/A. Contact made with patient: Yes Hi my name is Yessica Umana LPN and I am calling from the [facility] on behalf of your PCP, Marianna Wagner APRN.SPLUNK D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 I understand you were recently in the hospital so I am calling to check in with you to ensure you are feeling well now that you?re home. Do you mind if I ask you a few questions related to your hospital stay and well-being Yes Contact with patient post discharge, spoke to patient. Patient identified by name and . Do you feel your health is BETTER, WORSE, or the SAME since leaving the hospital? Same ACTION TAKEN: Patient indicated symptoms are better or same, no action required. Continue outreach. N/A MEDICATIONS: Many patients have questions or concerns about their medications once they are home. Do you have any questions about taking your medications or which medication you should be on? No Do you need any medication refills at this time, including any of the medications you might take only when needed? No ACTION TAKEN: No action required For RNs or Pharmacy completing outreach ONLY, was a medication review completed? N/A SOCIAL: We would like to make sure you have what you need so that your basics needs are met - including your personal safety. HEALTH LEADS SCREENING TOOL QUESTIONS: Do you often feel you lack companionship? No Do you ever need help reading or understanding hospital materials? No In the last 12 months, have you changed how you take medications to save money? No In the past 12 months, has lack of transportation kept you from medical appointments, work or getting things you need like food, or supplies? No In the last 12 months, did you ever eat less than you felt you should because there wasn't enough money for food? No During the winter, do you anticipate having a problem paying your heating bill? No In the next 2 months, are you worried you might not have stable housing? No Would you like to speak with a social work garment steamer to help give you support for any of these needs? No It can be normal to feel anxious or down during a time like this. Would you like to talk to a mental health professional about how you have been feeling? No ACTION TAKEN: No action taken DISCHARGE INTRUCTIONS: Your discharge instructions / After Visit Summary (AVS) are important in guiding you through the recovery process. Do you have any questions related to your discharge instructions? No Do you have all the necessary equipment and supplies at home? Yes ACTION TAKEN: No action required WRAP AROUND SERVICES: N/A Patient educated on importance of primary care provider follow up visit as well as specialty provider follow up visits as indicated. Inform the patient that if they have any questions or concerns prior to that appointment, to call their Primary Care Provider 's office right away. Primary care provider first education provided. I would like to help you schedule a hospital follow-up virtual or telephone visit with your PCP. ACTION TAKEN: TCM Primary Care Provider Visit Scheduled: No - Sent to the scheduling pool to schedule. Your doctor would like us to remind you of the recommendations regarding the coronavirus (Covid19) outbreak: Avoid public places as much as possible. Avoid close contact (within 6 feet) with others you don't live with, especially if they are sick. Stay home if you are sick. Wash your hands regularly for at least 20 seconds with soap and water. Wear a cloth mask in public places to help reduce community spread. Do not go to your Doctor's office unless instructed to do so. For any non-emergency symptoms, call your Doctor's office to get instructions on how to manage (we might recommend a telephone or virtual visit). For emergency symptoms, proceed to Emergency Department as usual but inform them of cough and fever symptoms CHAU if present (or call on the way if possible). Yessica Umana LPN 06/29/2024 9:35 AM Signed Addended by: YESSICA UMANA on: 06/29/2024 09:35 AM Modules accepted: Orders Allergies As of Date: 06/29/2024 (No Known Allergies) Date Reviewed: 04/12/2024 Reviewed by: (more content not included)...[facility] 06-28-2024 Consult note [facility] Medical Records Department [address] [place] [address] Anesthesia Postop Eval II 06/27/24 1540 MR#: [id number] Acct: [id number] Name: ANALILIA MELENDREZ Rep #:[id number] : 1960 63 From: Carlos Yanes MD PCP: ALAN Wilde Status:ADM I N Y Race: C Location: [place] [address] 4-1 Anesthesia Postop Eval I Sum Postop Eval Completion status Anesthesia document: Postop Eval 1 completed: Yes Anesthesia Postop Eval I Summary Anesthesia Postop Eval I Summary: Anesthesia Postop Eval I: Assessment Summary 3 Airway patent Yes 06/27/24 15:17 [email or web address] Spontaneous unlabored Yes 06/27/24 15:17 [email or web address] respirations Mental status Awake,Calm 06/27/24 15:17 [email or web address] nausea No 06/27/24 15:17 [email or web address] Vomiting No 06/27/24 15:17 [email or web address] Anesthesia Postop Eval I: Fluid Summary Crystalloid volume administer 300 06/27/24 15:17 [email or web address] (ml) Colloids volume administered ( ml) Blood Product volume administered (ml) Total IV fluid infused 300 06/27/24 15:17 [email or web address] Anesthesia Postop Eval I: Summary Notes Anesthesia Complication No 06/27/24 15:17 [email or web address] Anesthesia Complication Comment: Post-operative progress note Anesthesia: Postop Eval II Evaluation Mental status: Awake Pain Level: 0 nausea: No Vomiting: No 06/27/24 1540 > Date _ Carlos Lyman Signature: Date CC: ~ Signed [facility]05-21-2025 Discharge summary Author Melonie De La Rosa [facility] Note Date/Time June 28, 2024 1:27p [facility] Medical Records Department [address] [place] [address] Discharge Summary 06/28/24 1200 MR#: [id number] Acct: [id number] Name: ANALILIA MELENDREZ Rep #:[id number] : 1960 63 From: Melonie De La Rosa DO PCP: ALAN Wilde Status:ADM I N Location: [place] [address] Providers Date of Admission: 06/25/24 Date of Discharge: 06/28/24 Primary Care Physician: ALAN Wilde Consultations 06/26/24 00:39 Consult: Gastroenterology Routine Consulting Provider: [facility] Reason for Consult: Chronic diarrhea with large ascites and chronic EtOH abuse. EMERGENT Consult: No MD Notified: Yes Date Notified: 06/26/24 Time Notified: 06:55 Method of Notification: Text Reason For Visit: CRITICAL HYPOKALEMIA, LACTIC ACIDOSIS Diagnosis Discharge Diagnosis (1) Ascites due to alcoholic cirrhosis: Status: Acute Code(s): K70.31 - Alcoholic cirrhosis of liver with ascites (2) Lactic acidosis: Status: Acute Code(s): E87.20 - Acidosis, unspecified (3) Chronic diarrhea: Status: Chronic Code(s): K52.9 - Noninfective gastroenteritis and colitis, unspecified (4) Chronic pancreatitis: Status: Chronic Code(s): K86.1 - Other chronic pancreatitis (5) Thrombocytopenia: Status: Acute Code(s): D69.6 - Thrombocytopenia, unspecified Medications at Discharge Home Medications atorvastatin 10 mg tablet 10 mg PO DAILY CHOLESTEROL 10/17/20 hydralazine 25 mg tablet 25 mg PO TID BP 10/17/20 dapagliflozin propanediol 10 mg tablet (Farxiga) 10 mg PO DAILY DIABETES 09/30/21 multivitamin 1 tab PO DAILY SUPPLEMENT 11/11/21 gabapentin 300 mg capsule 300 mg PO DAILY NEUROPATHY 11/14/22 insulin glargine 100 unit/mL (3 mL) subcutaneous pen (Lantus Solostar U-100 Insulin) 10 unit subcut 1200 DIABETES 11/14/22 metformin 500 mg tablet,extended release 24 hr 500 mg PO BID DIABETES 11/15/22 L.acidophil,salivari-Bifido bifidum-Strep thermoph 175 mg capsule 2 cap PO BID #0 caps 05/20/23 dicyclomine 10 mg capsule 20 mg (2 x 10 mg) PO Q6H PRN PRN abdominal discomfort #0 caps 05/20/23 folic acid 1 mg tablet 1 mg PO DAILY@0800 supplement #0 tabs 05/20/23 furosemide 40 mg tablet 40 mg PO DAILY diuretic #30 tabs 05/20/23 insulin lispro 100 unit/mL subcutaneous pen (Humalog KwikPen (U-100) Insulin) See Protocol subcut ACHS #0 mL 05/20/23 metoprolol succinate 25 mg tablet,extended release 24 hr 25 mg PO BID blood pressure 30 days #60 tabs 05/20/23 spironolactone 25 mg tablet 12.5 mg (1/2 x 25 mg) PO DAILY diuretic #30 tabs 05/20/23 thiamine HCl (vitamin B1) 100 mg tablet (Vitamin B-1) 100 mg PO DAILYCM vitamin #0 tabs 05/20/23 pantoprazole 40 mg tablet,delayed release 40 mg PO BID reflux #60 tabs 06/27/23 lvojxz-qtayvlsq-ushrelw 24,000-76,000-120,000 unit capsule,delayed rel (Creon) 1cap PO TIDCM #90 caps 06/28/24 tramadol 50 mg tablet 50 mg PO Q8H PRN pain #9 tabs 06/28/24 Hospital Course Operations None Procedures EGD, EKG, Paracentesis and - (Gallbladder ultrasound/CT abdomen pelvis) Summary of Care Provided Minutes Spent on Discharge: 42 Hospital Course: Mr. Melendrez is a 63-year-old white male who presented to the emergency department at [facility] on 06/26/2023 with a chief complaint of abdominal pain and chronic diarrhea. Patient reported that symptoms began several months prior to admission with chronic diarrhea. He reported he had an outpatient workup to include an EGD and colonoscopy in March 2024 done by at [facility]. This was done for anemia. He reported no acute findings were noted at that time but there was poor colon prep. Patient reported about 4 days prior to presentation his diarrhea suddenly stopped and hebecame severely constipated with increasing lower abdominal pain. He also complained of decreased urine output and foul-smelling urine. Patient stated hehas been cutting back on his alcohol intake but did have 1 beer on Wednesday. Itwas a tall boy. He has had no signs of withdrawal. Vital signs on presentationto the emergency department here showed a temperature of 98.6, heart rate 104, respiratory rate was 18, blood pressure was 134/98 and pulse ox was 98% on room air. CBC showed a chronic anemia that was stable at 10.1 and thrombocytopenia which appears to be chronic with a normal white count and no left shift. Coags were mildly off with an elevated PT at 17.4 and an INR of 1.4. PTT was normal. Venous blood gas showed a pH of 7.43. Chemistry panel showed marked hypokalemiawith a potassium of 2.1 and a gap of 16 with a normal serum bicarb and his serumcreatinine 1.27. His blood glucose was 398. Hemoglobin A1c was obtained found to be 6.6. Lactic acid was 6.6 but trended down with IV fluids to 4.8. Liver function showed slightly elevated AST but normal ALT. Alk phos was normal. Lipase was 6. Beta hydroxybutyrate was unremarkable. TSH was normal. Lipid panel was overtly unremarkable. His total cholesterol is 74 with an LDL of 24 and an HDL of 32. EKG had no findings consistent with acute ischemia. Due to his abdominal pain, CT of the abdomen pelvis was performed and showed diffuse small bowel and colonic wall thickening that was felt to be secondary to his ascites, large abdominopelvic ascites and hepatomegaly with diffuse steatosis. Gallbladder ultrasound was ordered and performed which showed a distended gallbladder and common bile duct without evidence of obstructing stone or mass. Patient had no tenderness in the right upper quadrant whatsoever. Liver function enzymes were not consistent with bile duct abnormality. Stool studies were ordered and were unremarkable for infectious etiology and lactoferrin was negative so we do highly suspect that his chronic diarrhea is related to his chronic pancreatitis. He was started on Creon 24,000 units 3 times daily and was discharged with a prescription for this. Gastroenterology was consulted andperformed an EGD and showed normal esophagus with type I isolated gastric varices in the fundus without bleeding, portal hypertensive gastropathy and biopsy was obtained and no gross lesions in the entire duodenum. Pathology for his biopsies was pending at the time of discharge. He was able to start having bowel movements again and his abdominal pain improved but did not completely resolve. A paracentesis was performed for his ascites. This was done on 06/26/2024 and yielded 2500 cc of light-colored fluid. Cultures and fluid studies were sent. Cultures were unremarkable with no organisms or cells noted. He was tolerating a regular diet without any difficulty and having less abdominal pain. I discussed the case with gastroenterology and they felt he wasstable for discharge. We extensively discussed the importance of him not drinking any further and he did voiced understanding. GI did feel that he may be able to have some recovery of his liver function if he was able to stop drinking entirely. He will a follow-up appointment within the next week to see GI for ongoing management of his chronic pancreatitis and alcohol related liver disease. He is to follow-up with his primary care physician within 2 weeks. Heis to continue his Lasix and Aldactone. We were able to restart his Farxiga. He is to continue to take Creon as prescribed at discharge. Discharge diagnoses: Chronic diarrhea secondary to chronic pancreatitis Abdominal pain-improving Decompensated liver cirrhosis/hepatomegaly Chronic macrocytic anemia Thrombocytopenia-chronic Hypokalemia-resolved Hypophosphatemia-resolved Constipation-resolved Lactic acidosis-resolved [id number] CAD Essential hypertension Hyperlipidemia Diabetic neuropathy GERD History of alcohol abuse History of aortic valve replacement History of sick sinus syndrome with pacemaker History of AAA History of thoracic aortic aneurysm History of heroin abuse Tobacco abuse Physical Exam Narrative Patient states overall he is feeling much better still having some lower abdominal pain but better overall. Eating well with good bowel movements. 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 nursing assistant at bedside, does not appear acutely ill but does look chronically ill, appears older than stated age, mildly agitated about his headache General Appearance: cooperative, comfortable, well kempt and well developed Exam Limitations: no limitations HEENT normocephalic, head/scalp atraumatic, hearing grossly normal bilaterally and moist oral mucous membranes HEENT Narrative: Mallampati 2, no thrush Eyes PERRL, EOMs intact bilaterally and conjunctivae normal Eyes Narrative: No scleral icterus Neck supple Neck Narrative: Trachea midline Resp normal respiratory effort, no retractions, no use of accessory muscles and clearto auscultation bilaterally Resp Narrative: Diminished diffusely but clear Auscultation: Negative for rales, rhonchi or wheezes Cardio regular rate, regular rhythm, S1 normal heart sound, S2 normal heart sound, no murmurs, no rub, no gallops and no clicks GI normal to inspection, nondistended, normoactive bowel sounds, soft to palpation and non-tender GI Narrative: No marked tenderness Extremity normal to inspection, full ROM and no clubbing, cyanosis or edema Extremity Narrative: Pedal and radial pulses are 2+ Skin skin turgor normal and no jaundice Neuro oriented x3, CN's II-XII intact bilaterally, moves all extremities and no focal motor deficits Speech: speech normal Psych affect normal Psych Narrative: Very pleasant, interacts appropriately Weight / BMI Weight Weight: 74.9 kg Body Mass Index (BMI) 23.1 ABG / Lab / Microbiology Data 06/28/24 06:15 06/28/24 06:15 Laboratory: Laboratory Results - last 24 hr 06/27/24 12:18: POC Glucose 111 H 06/27/24 16:41: POC Glucose 122 H 06/27/24 23:35: POC Glucose 216 H 06/28/24 05:46: POC Glucose 161 H 06/28/24 06:15: WBC 5.3, RBC 2.66 L, Hgb 9.5 L, Hct 28.9 L, MCV 108.6 H, MCH 35.7 H, MCHC 32.9, RDW Std Deviation 68.0 H, RDW Coeff of Kalpana 17.0 H, Plt Count 129 L, MPV 11.4, Immature Gran % (Auto) 0.400, Neut % (Auto) 66.8, Lymph % (Auto) 21.1, Erath % (Auto) 9.9, Eos % (Auto) 0.9, Baso % (Auto) 0.9, Absolute Neuts (auto) 3.5, Absolute Lymphs (auto) 1.11, Nucleated RBC % 0.4, Sodium 139, Potassium 4.1, Chloride 107, Carbon Dioxide 25.1, Anion Gap 7, BUN 8, Creatinine1.11, Estim Creat Clear Calc 74.04, Est GFR (MDRD) Non-Af 76, BUN/Creatinine Ratio 7.0 L, Glucose 187 H, Calcium 7.7 06/28/24 11:27: POC Glucose 252 H Microbiology: Microbiology 06/26/24 00:00 Fluid - Paracentesis (Abd) Gram Stain - Final 06/26/24 00:00 Fluid - Paracentesis (Abd) Body Fluid Culture - Preliminary No growth-Final to follow 06/25/24 22:38 Stool Stool Lactoferrin - Final 06/25/24 22:38 Stool Enteric Bacteriology - Final 06/25/24 22:38 Stool Clostridioides difficile (PCR) - Final D/C Instructions Discharge Diet: Low fat / Low cholesterol Discharge Activity: Return to Normal Activity DC O2, CPAP, BIPAP Needs Home O2 Discharge instructions: No Meaningful Use Info Meaningful Use Meaningful Use Diagnoses (Choose all that apply): None applicable Ischemic Stroke Statin Dosing Therapy Reference: STATIN DOSE THERAPY REFERENCE: * Patients > 75 years receive moderate or high dose statin therapy. * Patients 75 years or YOUNGER should receive HIGH intensity statin dose unless contraindicated. You will be required to document reason for non-treatment if statin daily dose does not meet guidelines. HIGH DOSE STATIN THERAPY DAILY Atorvastatin > than or = to 40 mg Rosuvastatin > than or = to 20 mg Amlodipine + Atorvastatin > than or = to 2.5/40 mg Ezetimibe + Simvastatin 10/80 mg Simvastatin 80mg Discharge Plan Admission Admit Date/Time: 06/25/24 22:15 Primary Reason for Your Visit: Abdominal pain Attending Provider: Melonie De La Rosa Primary Care Provider: Marianna Wagner VEHICLE MODIFICATION TECHNICIAN Consulting Providers: [employer] Instructions Additional Instructions / Restrictions: 1. It is very important that you completely stop alcohol as discussed during hospitalization 2. Please take medication below for your pancreatitis as directed and continue all other medications as indicated 3. Please follow-up with Dr. Espitia as noted below to help with your liver and pancreas issues Discharge Orders/Prescriptions Prescriptions: New Creon 24,000-76,000 -120,000 unit Capsule,Delayed Release(Dr/Ec) 1 cap PO TIDCM Qty: 90 1RF tramadol 50 mg tablet 50 mg PO Q8H PRN (Reason: pain) Qty: 9 0RF Continued atorvastatin 10 mg tablet 10 mg PO DAILY hydralazine 25 mg tablet 25 mg PO TID dapagliflozin propanediol [Farxiga] 10 mg Tablet 10 mg PO DAILY multivitamin Tablet 1 tab PO DAILY insulin glargine [Lantus Solostar U-100 Insulin] 100 unit/mL (3 mL) insulin pen 10 unit subcut 1200 Patient Comments: pt stated he has not taken lantus for several days gabapentin 300 mg Capsule 300 mg PO DAILY Patient Comments: PT STATES THEY THINK THEY ARE ON THIS MEDICATION. metformin 500 mg tablet extended release 24 hr 500 mg PO BID Patient Comments: PT STATES THEY TAKE THIS ONCE DAILY. pantoprazole 40 mg tablet,delayed release (DR/EC) 40 mg PO BID Qty: 60 0RF thiamine HCl (vitamin B1) [Vitamin B-1] 100 mg Tablet 100 mg PO DAILYCM Qty: 0 0RF L.acidoph,saliva-B.bif-S.therm 175 mg Capsule 2 cap PO BID Qty: 0 0RF folic acid 1 mg Tablet 1 mg PO DAILY@0800 Qty: 0 0RF insulin lispro [Humalog KwikPen Insulin] 100 unit/mL Insulin Pen See Protocol subcut ACHS Qty: 0 0RF Protocol: 4. Sliding Scale Insulin High-Med Dosing Condition: 150-199 mg/dl = 2 units Condition: 200-259 mg/dl = 4 units Condition: 260-324 mg/dl = 6 units Condition: 325-374 mg/dl = 8 units Condition: 375-409 mg/dl = 10 units Condition: 410-449 mg/dl = 11 units Condition: Greater than 449 call physician Protocol Text: - Use for Total Daily Dose of Insulin 56-80 units - Patient who are insulin resistant or septic HIGH MEDIUM DOSING ALGORITHM furosemide 40 mg tablet 40 mg PO DAILY Qty: 30 0RF spironolactone 25 mg tablet 12.5 mg PO DAILY Qty: 30 0RF Rx Instructions: Hold if serum potassium more than 5.1. dicyclomine 10 mg Capsule 20 mg PO Q6H PRN PRN (Reason: abdominal discomfort) Qty: 0 0RF metoprolol succinate 25 mg Tablet Extended Release 24 Hr 25 mg PO BID 30 Days Qty: 60 0RF Referrals / Follow Up: Antony Espitia DO [Med Staff - Active Staff] - In 1 Week Marianna Wagner NP, NP-C [Primary Care Provider] - Within 2 Weeks Disposition Disposition (needs filled in before D/C Order can be placed): Home, Self Care Charges/Coding Visit Charges Inpatient E&M: 21085 Disch Hosp >30min 06/28/24 1327 <Electronically signed by Melonie De La Rosa DO> Cosigner Signature (if applicable): CC: ALAN Wagner; Dr. Melonie De La Rosa DO; Antony Espitia DO~ Signed [facility] Work Phone: 1(504) 431-590105-21-2025 Discharge summary [facility] Medical Records Department [address] [place] [address] Discharge Summary 06/28/24 1200 MR#: [id number] Acct: [id number] Name: ANALILIA MELENDREZ Rep #:[id number] : 1960 63 From: Melonie De La Rosa DO PCP: ALAN Wilde Status:ADM I N Location: [place] [address] 1 Providers Date of Admission: 06/25/24 Date of Discharge: 06/28/24 Primary Care Physician: ALAN Wilde Consultations 06/26/24 00:39 Consult: Gastroenterology Routine Consulting Provider: [facility] Reason for Consult: Chronic diarrhea with large ascites and chronic EtOH abuse. EMERGENT Consult: No MD Notified: Yes Date Notified: 06/26/24 Time Notified: 06:55 Method of Notification: Text Reason For Visit: CRITICAL HYPOKALEMIA, LACTIC ACIDOSIS Diagnosis Discharge Diagnosis (1) Ascites due to alcoholic cirrhosis: Status: Acute Code(s): K70.31 - Alcoholic cirrhosis of liver with ascites (2) Lactic acidosis: Status: Acute Code(s): E87.20 - Acidosis, unspecified (3) Chronic diarrhea: Status: Chronic Code(s): K52.9 - Noninfective gastroenteritis and colitis, unspecified (4) Chronic pancreatitis: Status: Chronic Code(s): K86.1 - Other chronic pancreatitis (5) Thrombocytopenia: Status: Acute Code(s): D69.6 - Thrombocytopenia, unspecified Medications at Discharge Home Medications atorvastatin 10 mg tablet 10 mg PO DAILY CHOLESTEROL 10/17/20 hydralazine 25 mg tablet 25 mg PO TID BP 10/17/20 dapagliflozin propanediol 10 mg tablet (Farxiga) 10 mg PO DAILY DIABETES 09/30/21 multivitamin 1 tab PO DAILY SUPPLEMENT 11/11/21 gabapentin 300 mg capsule 300 mg PO DAILY NEUROPATHY 11/14/22 insulin glargine 100 unit/mL (3 mL) subcutaneous pen (Lantus Solostar U-100 Insulin) 10 unit [id number] DIABETES 11/14/22 metformin 500 mg tablet,extended release 24 hr 500 mg PO BID DIABETES 11/15/22 L.acidophil,salivari-Bifido bifidum-Strep thermoph 175 mg capsule 2 cap PO BID #0 caps 05/20/23 dicyclomine 10 mg capsule 20 mg (2 x 10 mg) PO Q6H PRN PRN abdominal discomfort #0 caps 05/20/23 folic acid 1 mg tablet 1 mg PO DAILY@0800 supplement #0 tabs 05/20/23 furosemide 40 mg tablet 40 mg PO DAILY diuretic #30 tabs 05/20/23 insulin lispro 100 unit/mL subcutaneous pen (Humalog KwikPen (U-100) Insulin) See Protocol subcut ACHS #0 mL 05/20/23 metoprolol succinate 25 mg tablet,extended release 24 hr 25 mg PO BID blood pressure 30 days #60 tabs 05/20/23 spironolactone 25 mg tablet 12.5 mg (1/2 x 25 mg) PO DAILY diuretic #30 tabs 05/20/23 thiamine HCl (vitamin B1) 100 mg tablet (Vitamin B-1) 100 mg PO DAILYCM vitamin #0 tabs 05/20/23 pantoprazole 40 mg tablet,delayed release 40 mg PO BID reflux #60 tabs 06/27/23 nefcnc-tofarnqm-mloohbe 24,000-76,000-120,000 unit capsule,delayed rel (Creon) 1cap PO TIDCM #90 caps 06/28/24 tramadol 50 mg tablet 50 mg PO Q8H PRN pain #9 tabs 06/28/24 Hospital Course Operations None Procedures EGD, EKG, Paracentesis and - (Gallbladder ultrasound/CT abdomen pelvis) Summary of Care Provided Minutes Spent on Discharge: 42 Hospital Course: Mr. Melendrez is a 63-year-old white male who presented to the emergency department at [facility] on 06/26/2023 with a chief complaint of abdominal pain and chronic diarrhea. Patient reported that symptoms began several months prior to admission with chronic diarrhea. He reported he had an outpatient workup to include an EGD and colonoscopy in March 2024 done by at [facility]. This was done for anemia. He reported no acute findings were noted at that time but there was poor colon prep. Patient reported about 4 days prior to presentation his diarrhea suddenly stopped and hebecame severely constipated with increasing lower abdominal pain. He also complained of decreased urine output and foul-smelling urine. Patient stated hehas been cutting back on his alcoholintake but did have 1 beer on Wednesday. Itwas a tall boy. He has had no signs of withdrawal. Vital signs on presentationto the emergency department here showed a temperature of 98.6, heart rate 104, r espiratory rate was 18, blood pressure was 134/98 and pulse ox was 98% on room air. CBC showed a chronic anemia that was stable at 10.1 and thrombocytopenia which appears to be chronic with a normal white count and no left shift. Coags were mildly off with an elevated PT at 17.4 and an INR of 1.4. PTT was normal. Venous blood gas showed a pH of 7.43. Chemistry panel showed marked hypokalemiawith a potassium of 2.1 and a gap of 16 with a normal serum bicarb and his serumcreatinine 1.27. His blood glucose was 398. Hemoglobin A1c was obtained found to be 6.6. Lactic acid was 6.6 but trended downwith IV fluids to 4.8. Liver function showed slightly elevated AST but normal ALT. Alk phos was normal. Lipase was 6. Beta hydroxybutyrate was unremarkable. TSH was normal. Lipid panel was overtly unremarkable. His total cholesterol is 74 with an LDL of 24 and an HDL of 32. EKG had no findings consistent with acute ischemia. Due to his abdominal pain, CT of the abdomen pelvis was performed and showed diffuse small bowel and colonic wall thickening that was felt to be secondary to his ascites, large abdominopelvic ascites and hepatomegaly with diffuse steatosis. Gallbladder ultrasound was ordered and performed which showed a distended gallbladder and common bile duct without evidence of obstructing stone or mass. Patient had no tenderness in the right upper quadrant whatsoever. Liver function enzymes were not consistent with bile duct abnormality. Stool studies were ordered and were unremarkable for infectious etiology and lactoferrin was negative so we do highly suspect that his chronic diarrhea is related to his chronic pancreatitis. He was started on Creon 24,000 units 3 times daily and was discharged with a prescription for this. Gastroenterology was consulted andperformed an EGD and showed normal esophagus with type I isolated gastric varices in the fundus without bleeding, portal hypertensive gastropathy and biopsy was obtained and no gross lesions in the entire duodenum.Pathology for his biopsies was pending at the time of discharge. He was able to start having bowel movements again and his abdominal pain improved but did not completely resolve. A paracentesis was performed for his ascites. This was done on 06/26/2024 and yielded 2500 cc of light-colored fluid. Cultures and fluid studies were sent. Cultures were unremarkable with no organisms or cells noted. He was tolerating a regular diet without any difficulty and having less abdominal pain. I discussed the case with gastroenterology and they felt he wasstable for discharge. We extensively discussed the importance of him not drinking any further and he did voiced understanding. GI did feel that he may beable to have some recovery of his liver function if he was able to stop drinking entirely. He will a follow-up appointment within the next week to see GI for ongoing management of his chronic pancreatitis and alcohol related liver disease. He is to follow-up with his primary care physician within 2weeks. Heis to continue his Lasix and Aldactone. We were able to restart his Farxiga. He is to continue to take Creon as prescribed at discharge. Discharge diagnoses: Chronic diarrhea secondary to chronic pancreatitis Abdominal pain-improving Decompensated liver cirrhosis/hepatomegaly Chronic macrocytic anemia Thrombocytopenia-chronic Hypokalemia-resolved Hypophosphatemia-resolved Constipation-resolved Lactic acidosis-resolved [id number] CAD Essential hypertension Hyperlipidemia Diabetic neuropathy GERD History of alcohol abuse History of aortic valve replacement History of sick sinus syndrome with pacemaker History of AAA History of thoracic aortic aneurysm History of heroin abuse Tobacco abuse Physical Exam Narrative Patient states overall he is feeling much better still having some lower abdominal pain but better overall. Eating well with good bowel movements. 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 nursing assistant at bedside, does not appear acutely ill but does look chronically ill, appears older than stated age, mildly agitated about his headache General Appearance: cooperative, comfortable, well kempt and well developed Exam Limitations: no limitations HEENT normocephalic, head/scalp atraumatic, hearing grossly normal bilaterally and moist oral mucous membranes HEENT Narrative: Mallampati 2, no thrush Eyes PERRL, EOMs intact bilaterally and conjunctivae normal Eyes Narrative: No scleral icterus Neck supple Neck Narrative: Trachea midline Resp normal respiratory effort, no retractions, no use of accessory muscles and clearto auscultation bilaterally Resp Narrative: Diminished diffusely but clear Auscultation: Negative for rales, rhonchi or wheezes Cardio regular rate, regular rhythm, S1 normal heart sound, S2 normal heart sound, no murmurs, no rub, no gallops and no clicks GI normal to inspection, nondistended, normoactive bowel sounds, soft to palpation and non-tender GI Narrative: No marked tenderness Extremity normal to inspection, full ROM and no clubbing, cyanosis or edema Extremity Narrative: Pedal and radial pulses are 2+ Skin skin turgor normal and no jaundice Neuro oriented x3, CN's II-XII intact bilaterally, moves all extremities and no focal motor deficits Speech: speech normal Psych affect normal Psych Narrative: Very pleasant, interacts appropriately Weight / BMI Weight Weight: 74.9 kg Body Mass Index (BMI) 23.1 ABG / Lab / Microbiology Data 06/28/24 06:15 06/28/24 06:15 Laboratory: Laboratory Results - last 24 hr 06/27/24 12:18: POC Glucose 111 H 06/27/24 16:41: POC Glucose 122 H 06/27/24 23:35: POC Glucose 216 H 06/28/24 05:46: POC Glucose 161 H 06/28/24 06:15: WBC 5.3, RBC 2.66 L, Hgb 9.5 L, Hct 28.9 L, MCV 108.6 H, MCH 35.7 H, MCHC 32.9, RDWStd Deviation 68.0 H, RDW Coeff of Kalpana 17.0 H, Plt Count 129 L, MPV 11.4, Immature Gran % (Auto) 0.400, Neut % (Auto) 66.8, Lymph % (Auto) 21.1, Erath % (Auto) 9.9, Eos % (Auto) 0.9, Baso % (Auto) 0.9, Absolute Neuts (auto) 3.5, Absolute Lymphs (auto) 1.11, Nucleated RBC % 0.4, Sodium 139, Potassium4.1, Chloride 107, Carbon Dioxide 25.1, Anion Gap 7, BUN 8, Creatinine1.11, Estim Creat Clear Calc 74.04, Est GFR (MDRD) Non-Af 76, BUN/Creatinine Ratio 7.0 L, Glucose 187 H, Calcium 7.7 06/28/24 11:27: POC Glucose 252 H Microbiology: Microbiology 06/26/24 00:00 Fluid - Paracentesis (Abd) Gram Stain - Final 06/26/24 00:00 Fluid - Paracentesis (Abd) Body Fluid Culture - Preliminary No growth-Final to follow 06/25/24 22:38 Stool Stool Lactoferrin - Final 06/25/24 22:38 Stool Enteric Bacteriology - Final 06/25/24 22:38 Stool Clostridioides difficile (PCR) - Final D/C Instructions Discharge Diet: Low fat / Low cholesterol Discharge Activity: Return to Normal Activity DC O2, CPAP, BIPAP Needs Home O2 Discharge instructions: No Meaningful Use Info Meaningful Use Meaningful Use Diagnoses (Choose all that apply): None applicable Ischemic Stroke Statin Dosing Therapy Reference: STATIN DOSE THERAPY REFERENCE: * Patients > 75 years receive moderate or high dose statin therapy. * Patients 75 years or YOUNGER should receive HIGH intensity statin dose unless contraindicated. You will be required to document reason for non-treatment if statin daily dose does not meet guidelines. HIGH DOSE STATIN THERAPY DAILY Atorvastatin > than or = to 40 mg Rosuvastatin > than or = to 20 mg Amlodipine + Atorvastatin > than or = to 2.5/40 mg Ezetimibe + Simvastatin 10/80 mg Simvastatin 80mg Discharge Plan Admission Admit Date/Time: 06/25/24 22:15 Primary Reason for Your Visit: Abdominal pain Attending Provider: Melonie De La Rosa Primary Care Provider: Marianna Wagner VEHICLE MODIFICATION TECHNICIAN Consulting Providers: [employer] Instructions Additional Instructions / Restrictions: 1. It is very important that you completely stop alcohol as discussed during hospitalization 2. Please take medication below for your pancreatitis as directed and continue all other medications as indicated 3. Please follow-up with Dr. Espitia as noted below to help with your liver and pancreas issues Discharge Orders/Prescriptions Prescriptions: New Creon 24,000-76,000 -120,000 unit Capsule,Delayed Release(Dr/Ec) 1 cap PO TIDCM Qty: 90 1RF tramadol 50 mg tablet 50 mg PO Q8H PRN (Reason: pain) Qty: 9 0RF Continued atorvastatin 10 mg tablet 10 mg PO DAILY hydralazine 25 mg tablet 25 mg PO TID dapagliflozin propanediol [Farxiga] 10 mg Tablet 10 mg PO DAILY multivitamin Tablet 1 tab PO DAILY insulin glargine [Lantus Solostar U-100 Insulin] 100 unit/mL (3 mL) insulin pen 10 unit subcut 1200 Patient Comments: pt stated he has not taken lantus for several days gabapentin 300 mg Capsule 300 mg PO DAILY Patient Comments: PT STATES THEY THINK THEY ARE ON THIS MEDICATION. metformin 500 mg tablet extended release 24 hr 500 mg PO BID Patient Comments: PT STATES THEY TAKE THIS ONCE DAILY. pantoprazole 40 mg tablet,delayed release (DR/EC) 40 mg PO BID Qty: 60 0RF thiamine HCl (vitamin B1) [Vitamin B-1] 100 mg Tablet 100 mg PO DAILYCM Qty: 0 0RF L.acidoph,saliva-B.bif-S.therm 175 mg Capsule 2 cap PO BID Qty: 0 0RF folic acid 1 mg Tablet 1 mg PO DAILY@0800 Qty: 0 0RF insulin lispro [Humalog KwikPen Insulin] 100 unit/mL Insulin Pen See Protocol subcut ACHS Qty: 0 0RF Protocol: 4. Sliding Scale Insulin High-Med Dosing Condition: 150-199 mg/dl = 2 units Condition: 200-259 mg/dl = 4 units Condition: 260-324 mg/dl = 6 units Condition: 325-374 mg/dl = 8 units Condition: 375-409 mg/dl = 10 units Condition: 410-449 mg/dl = 11 units Condition: Greater than 449 call physician Protocol Text: - Use for Total Daily Dose of Insulin 56-80 units - Patient who are insulin resistant or septic HIGH MEDIUM DOSING ALGORITHM furosemide 40 mg tablet 40 mg PO DAILY Qty: 30 0RF spironolactone 25 mg tablet 12.5 mg PO DAILY Qty: 30 0RF Rx Instructions: Hold if serum potassium more than 5.1. dicyclomine 10 mg Capsule 20 mg PO Q6H PRN PRN (Reason: abdominal discomfort) Qty: 0 0RF metoprolol succinate 25 mg Tablet Extended Release 24 Hr 25 mg PO BID 30 Days Qty: 60 0RF Referrals / Follow Up: Antony Espitia DO [Med Staff - Active Staff] - In 1 Week Marianna Wagner NP, VEHICLE MODIFICATION TECHNICIAN-C [Primary Care Provider] - Within 2 Weeks Disposition Disposition (needs filled in before D/C Order can be placed): Home, Self Care Charges/Coding Visit Charges Inpatient E&M: 30709 Disch Hosp >30min 06/28/24 1327 Cosigner Signature (if applicable): CC: VEHICLE MODIFICATION TECHNICIAN-C Marianna Wagner; Dr. Melonie De La Rosa DO; Antony Espitia DO~ Signed [facility]05-21-[facility] Progress note Author Melonie De La Rosa [facility] Note Date/Time June 27, 2024 6:19p m [facility] Medical Records Department [address] [facility] [place] [address] Progress Note - Hospitalist 06/27/24 0737 MR#: [id number] Acct: [id number] Name: ANALILIA MELENDREZ Rep #:[id number] : 1960 63 From: Melonie De La Rosa DO PCP: Marianna Queden, VEHICLE MODIFICATION TECHNICIAN-C Status:ADM I N Location: [place] [address] Reason for Visit Reason for Visit: Abdominal pain Subjective Subjective No issues overnight. Patient complaining of oral headache currently. Has been n.p.o. all day for his EGD. Will treat his headache and now he is allowed to eat hopefully his headache improves. No significant complaints otherwise currently. Objective Data Objective Data Vital Signs: Vital Signs Temp Pulse Resp BP Pulse Ox O2 Del Method 98.4 F 74 17 104/80 95 Room Air 06/27/24 03:23 06/27/24 03:23 06/27/24 03:23 06/27/24 03:23 06/27/24 03:23 06/27/24 03:27 Oxygen Delivery Method Room Air Weight: 75.2 kg Body Mass Index (BMI) 23.2 Intake & Output: Intake and Output for Last 24 Hours 06/25/24 06/26/24 06/27/24 23:59 23:59 23:59 Intake Total 1300 / 1300 3087 / 3087 Output Total 2049 / 2049 250 / 250 Balance 1300 / 1300 1037 / 1037 -250 / -250 Lab / Micro Data 06/27/24 05:00 06/27/24 05:00 Labs: Laboratory Results - last 24 hr 06/25/24 19:23: Urine Opiates Screen NEGATIVE, U Buprenorphine Qual NEGATIVE, UrOxycodone Screen NEGATIVE, Urine Methadone Screen NEGATIVE, Urine Fentanyl Screen NEGATIVE, Ur Barbiturates Screen NEGATIVE, Ur Phencyclidine Scrn NEGATIVE, Ur Amphetamines Screen NEGATIVE, U Benzodiazepines Scrn NEGATIVE, Urine Cocaine Screen NEGATIVE, U Cannabinoids Screen NEGATIVE 06/26/24 00:00: Fluid Glucose 201, Fluid Total Protein 0.3 06/26/24 05:25: Total Bilirubin 0.42, Direct Bilirubin 0.23, AST 49 H, ALT 27, Alkaline Phosphatase 99, Total Protein 4.2 L, Albumin 2.0 L, Globulin 2.2 06/26/24 07:05: Lactic Acid 3.1 H* 06/26/24 12:08: POC Glucose 138 H 06/26/24 15:46: Fluid Source PARACENTESIS, Fluid Color YELLOW, Fluid Appearance CLEAR, Fluid WBC 0.010, Fluid RBC 35, Fluid Tot Cell Count 0.012, Fld Polynuclear WBCs # 0.001, Fld Polynuclear WBCs % 10.0, Fluid Mononuclear WBCs 0.009, Fld Mononuclear WBCs % 90.0, Fluid Neutrophils 6, Fluid Lymphocytes 17, Fluid Macrophages 56, Fld Mesothelial Cells 21, Fl Pathologist Comment May follow, Fluid Comment 2 SEE COMMENT 06/26/24 16:55: POC Glucose 201 H 06/27/24 00:08: POC Glucose 209 H 06/27/24 05:00: WBC 3.5 L, RBC 2.42 L, Hgb 8.7 L, Hct 26.2 L, MCV 108.3 H, MCH 36.0 H, MCHC 33.2, RDW Std Deviation 65.3 H, RDW Coeff of Kalpana 16.7 H, Plt Count 115 L, MPV 11.1, Immature Gran % (Auto) 0.300, Neut % (Auto) 63.2, Lymph % (Auto) 25.4, Erath % (Auto) 8.9, Eos % (Auto) 1.1, Baso % (Auto) 1.1 H, Absolute Neuts (auto) 2.2, Absolute Lymphs (auto) 0.89, Nucleated RBC % 0, PT 17.4 H, INR1.4, APTT 30.2, Sodium 142, Potassium 3.5, Chloride 109 H, Carbon Dioxide 25.2, Anion Gap 8, BUN 7, Creatinine 1.07, Estim Creat Clear Calc 77.11, Est GFR (MDRD) Non-Af 79, BUN/Creatinine Ratio 6.6 L, Glucose 134 H, Calcium 7.3 L, Phosphorus 2.7, Magnesium 1.5 06/27/24 05:03: POC Glucose 131 H Micro: Microbiology 06/25/24 22:38 Stool Stool Lactoferrin - Final 06/25/24 22:38 Stool Enteric Bacteriology - Final 06/25/24 22:38 Stool Clostridioides difficile (PCR) - Final Radiography Diagnostic Testing: Radiology Impression Paracentesis Ultrasound 06/26/24 06:00 IMPRESSION: Successful paracentesis with removal of 2050 mL of light colored fluid. Reading Location: [place] [address] Physical Exam Const alert, oriented x3, no apparent distress and average body habitus; Negative for healthy appearing or well nourished Constitutional Narrative: Upper middle-aged, white male, sitting on the edge of bed, geriatric nursing assistant at bedside, does not appear acutely ill but does look chronically ill, appears older than stated age, mildly agitated about his headache General Appearance: cooperative HEENT normocephalic, head/scalp atraumatic, hearing grossly normal bilaterally and moist oral mucous membranes Resp normal respiratory effort, no retractions, no use of accessory muscles and clearto auscultation bilaterally Resp Narrative: Diminished diffusely but clear Auscultation: Negative for rales, rhonchi or wheezes Cardio regular rate, regular rhythm, S1 normal heart sound, S2 normal heart sound, no murmurs, no rub, no gallops and no clicks GI normal to inspection, nondistended, normoactive bowel sounds, soft to palpation and non-tender Extremity no clubbing, cyanosis or edema Extremity Narrative: Pedal and radial pulses are 2+ Neuro oriented x3, moves all extremities and no focal motor deficits Speech: speech normal Psych affect normal Psych Narrative: Very pleasant, interacts appropriately Assessment & Plan Assessment/Plan (1) Ascites due to alcoholic cirrhosis: (2) Lactic acidosis: (3) Chronic diarrhea: (4) Chronic pancreatitis: (5) Thrombocytopenia: PLAN: Plan Diarrhea/abdominal pain - Like related to chronic alcoholic pancreatitis -Continue Creon - Fecal elastase, IBD, SGI, are pending - Stool studies were negative for infectious etiology - Diarrhea seems a bit better today Decompensated alcoholic liver cirrhosis/hepatomegaly - Potentially has some functioning liver - no marked cirrhosis type morphology noted on imaging - No significant splenomegaly -Continue Lasix 40 mg daily -Continue home Aldactone 12.5 mg daily -Paracentesis pending -Add fluid studies -Highly doubt SBP - Treatment per gastroenterology Chronic macrocytic anemia with acute drop -baseline is unclear -drop from yesterday - EGD performed today and showed a normal esophagus with type I isolated gastricvarices without bleeding, portal hypertensive gastropathy that was biopsied and no gross lesions in the entire duodenum - Suspect current blood count is probably close to his baseline Thrombocytopenia - Appears to be chronic and stable - Highly suspect related to liver disease but could be bone marrow suppression from alcohol use - Per discussion patient is not currently using significant abe of alcohol -Repeat lab in a.m. Hypokalemia -Resolved Hypophosphatemia -Resolved Constipation -Continue MiraLAX Lactic acidosis -Resolved DM-2 - Continue basal insulin 10 units daily -AM fasting blood sugar was well-controlled at 134 - Continue SSI - Hold home oral agents - Carb controlled diet - Accu-Cheks as ordered CAD/essential hypertension/hyperlipidemia - Continue home hydralazine - Continue home metoprolol - Continue home Aldactone - Continue home Lasix - As needed hydralazine to continue - Continue atorvastatin Diabetic neuropathy -Continue home gabapentin GERD -Continue home Protonix History of alcohol abuse -patient without any current significant alcohol use - continue p.o. thiamine and folate History of aortic valve replacement - Bioprosthetic valve in 2017 - No current murmur History of sick sinus syndrome - Continue home metoprolol - Previous pacemaker History of AAA/thoracic aortic aneurysm - Had thoracic dissection and was treated at [facility] History of heroin abuse - Remote -patient states he has been clean for approximately 10 years Tobacco abuse - Encouraged cessation - nicotine patch replacement available DVT prophylaxis -Platelet count remains greater than 70,000 -Continue Lovenox 40 subcu daily CODE STATUS - Full code Charges/Coding Visit Charges Inpatient E&M: 15233 Subs Hosp L2 06/27/241818 <Electronically signed by Melonie De La Rosa DO> Cosigner Signature (if applicable): CC: ~ Signed [facility] Work Phone: 1(922) 971-634805-20-2025 Progress note [facility] Medical Records Department [address] [place] [address] Progress Note - Hospitalist 06/27/24 0737 MR#: [id number] Acct: [id number] Name: ANALILIA MELENDREZ Rep #:[id number] : 1960 63 From: Melonie De La Rosa DO PCP: Marianna Wagner NP-C Status:ADM I N Location: [place] [address] Reason for Visit Reason for Visit: Abdominal pain Subjective Subjective No issues overnight. Patient complaining of oral headache currently. Has been n.p.o. all day for his EGD. Will treat his headache and now he is allowed to eat hopefully his headache improves. No significant complaints otherwise currently. Objective Data Objective Data Vital Signs: Vital Signs Temp Pulse Resp BP Pulse Ox O2 Del Method 98.4 F 74 17 104/80 95 Room Air 06/27/24 03:23 06/27/24 03:23 06/27/24 03:23 06/27/24 03:23 06/27/24 03:23 06/27/24 03:27 Oxygen Delivery Method Room Air Weight: 75.2 kg Body Mass Index (BMI) 23.2 Intake & Output: Intake and Output for Last 24 Hours 06/25/24 06/26/24 06/27/24 23:59 23:59 23:59 Intake Total 1300 / 1300 3087 / 3087 Output Total 2049 250 / 250 Balance 1300 / 1300 1037 / 1037 -250 / -250 Lab / Micro Data 06/27/24 05:00 06/27/24 05:00 Labs: Laboratory Results - last 24 hr 06/25/24 19:23: Urine Opiates Screen NEGATIVE, U Buprenorphine Qual NEGATIVE, UrOxycodone Screen NEGATIVE, Urine Methadone Screen NEGATIVE, Urine Fentanyl Screen NEGATIVE, Ur Barbiturates Screen NEGATIVE, Ur Phencyclidine Scrn NEGATIVE, Ur Amphetamines Screen NEGATIVE, U Benzodiazepines Scrn NEGATIVE, Urine Cocaine Screen NEGATIVE, U Cannabinoids Screen NEGATIVE 06/26/24 00:00: Fluid Glucose 201, Fluid Total Protein 0.3 06/26/24 05:25: Total Bilirubin 0.42, Direct Bilirubin 0.23, AST 49 H, ALT 27, Alkaline [id number], Total Protein 4.2 L, Albumin 2.0 L, Globulin 2.2 06/26/24 07:05: Lactic Acid 3.1 H* 06/26/24 12:08: POC Glucose 138 H 06/26/24 15:46: Fluid Source PARACENTESIS, Fluid Color YELLOW, Fluid Appearance CLEAR, Fluid WBC 0.010, Fluid RBC 35, Fluid Tot Cell Count 0.012, Fld Polynuclear WBCs # 0.001, Fld Polynuclear WBCs % 10.0, Fluid Mononuclear WBCs 0.009, Fld Mononuclear WBCs % 90.0, Fluid Neutrophils 6, Fluid Lymphocytes 17, Fluid Macrophages 56, Fld Mesothelial Cells 21, Fl Pathologist Comment May follow, Fluid Comment 2 SEE COMMENT 06/26/24 16:55: POC Glucose 201 H 06/27/24 00:08: POC Glucose 209 H 06/27/24 05:00: WBC 3.5 L, RBC 2.42 L, Hgb 8.7 L, Hct 26.2 L, MCV 108.3 H, MCH 36.0 H, MCHC 33.2, RDW Std Deviation 65.3 H, RDW Coeff of Kalpana 16.7 H, Plt Count 115 L, MPV 11.1, Immature Gran % (Auto) 0.300, Neut % (Auto) 63.2, Lymph % (Auto) 25.4, Erath % (Auto) 8.9, Eos % (Auto) 1.1, Baso % (Auto) 1.1 H, Absolute Neuts (auto) 2.2, Absolute Lymphs (auto) 0.89, Nucleated RBC % 0, PT 17.4 H, INR1.4, APTT 30.2, Sodium 142, Potassium 3.5, Chloride 109 H, Carbon Dioxide 25.2, Anion Gap 8, BUN 7, Creatinine 1.07, Estim Creat Clear Calc 77.11, Est GFR (MDRD) Non-Af 79, BUN/Creatinine Ratio 6.6 L, Glucose 134 H, Calcium 7.3 L, Phosphorus 2.7, Magnesium 1.5 06/27/24 05:03: POC Glucose 131 H Micro: Microbiology 06/25/24 22:38 Stool Stool Lactoferrin - Final 06/25/24 22:38 Stool Enteric Bacteriology - Final 06/25/24 22:38 Stool Clostridioides difficile (PCR) - Final Radiography Diagnostic Testing: Radiology Impression Paracentesis Ultrasound 06/26/24 06:00 IMPRESSION: Successful paracentesis with removal of 2050 mL of light colored fluid. Reading Location: [place] [address] Physical Exam Const alert, oriented x3, no apparent distress and average body habitus; Negative for healthy appearing or well nourished Constitutional Narrative: Upper middle-aged, white male, sitting on the edge of bed, geriatric nursing assistant at bedside, does not appear acutely ill but does look chronically ill, appears older than stated age, mildly agitated about his headache General Appearance: cooperative HEENT normocephalic, head/scalp atraumatic, hearing grossly normal bilaterally and moist oral mucous membranes Resp normal respiratory effort, no retractions, no use of accessory muscles and clearto auscultation bilaterally Resp Narrative: Diminished diffusely but clear Auscultation: Negative for rales, rhonchi or wheezes Cardio regular rate, regular rhythm, S1 normal heart sound, S2 normal heart sound, no murmurs, no rub, no gallops and no clicks GI normal to inspection, nondistended, normoactive bowel sounds, soft to palpation and non-tender Extremity no clubbing, cyanosis or edema Extremity Narrative: Pedal and radial pulses are 2+ Neuro oriented x3, moves all extremities and no focal motor deficits Speech: speech normal Psych affect normal Psych Narrative: Very pleasant, interacts appropriately Assessment & Plan Assessment/Plan (1) Ascites due to alcoholic cirrhosis: (2) Lactic acidosis: (3) Chronic diarrhea: (4) Chronic pancreatitis: (5) Thrombocytopenia: PLAN: Plan Diarrhea/abdominal pain - Like related to chronic alcoholic pancreatitis -Continue Creon - Fecal elastase, IBD, SGI, are pending - Stool studies were negative for infectious etiology - Diarrhea seems a bit better today Decompensated alcoholic liver cirrhosis/hepatomegaly - Potentially has some functioning liver - no marked cirrhosis type morphology noted on imaging - No significant splenomegaly -Continue Lasix 40 mg daily -Continue home Aldactone 12.5 mg daily -Paracentesis pending -Add fluid studies -Highly doubt SBP - Treatment per gastroenterology Chronic macrocytic anemia with acute drop -baseline is unclear -drop from yesterday - EGD performed today and showed a normal esophagus with type I isolated gastricvarices without bleeding, portal hypertensive gastropathy that was biopsied and no gross lesions in the entire duodenum - Suspect current blood count is probably close to his baseline Thrombocytopenia - Appears to be chronic and stable - Highly suspect related to liver disease but could be bone marrow suppression from alcohol use - Per discussion patient is not currently using significant abe of alcohol -Repeat lab in a.m. Hypokalemia -Resolved Hypophosphatemia -Resolved Constipation -Continue MiraLAX Lactic acidosis -Resolved DM-2 - Continue basal insulin 10 units daily -AM fasting blood sugar was well-controlled at 134 - Continue SSI - Hold home oral agents - Carb controlled diet - Accu-Cheks as ordered CAD/essential hypertension/hyperlipidemia - Continue home hydralazine - Continue home metoprolol - Continue home Aldactone - Continue home Lasix - As needed hydralazine to continue - Continue atorvastatin Diabetic neuropathy -Continue home gabapentin GERD -Continue home Protonix History of alcohol abuse -patient without any current significant alcohol use - continue p.o. thiamine and folate History of aortic valve replacement - Bioprosthetic valve in 2017 - No current murmur History of sick sinus syndrome - Continue home metoprolol - Previous pacemaker History of AAA/thoracic aortic aneurysm - Had thoracic dissection and was treated at [facility] History of heroin abuse - Remote -patient states he has been clean for approximately 10 years Tobacco abuse - Encouraged cessation - nicotine patch replacement available DVT prophylaxis -Platelet count remains greater than 70,000 -Continue Lovenox 40 subcu daily CODE STATUS - Full code Charges/Coding Visit Charges Inpatient E&M: 56265 Subs Hosp L2 06/27/24 1819 Cosigner Signature (if applicable): CC: ~ Signed [facility]05-20-2025 Consult note Author Carlos Yanes [facility] Note Date/Time June 28, 2024 3:08p m [facility] Medical Records Department [address] [place] [address] Anesthesia Postop Eval II 06/27/24 1540 MR#: [id number] Acct: [id number] Name: ANALILIA MELENDREZ Rep #:[id number] : 1960 63 From: Carlos Yanes MD PCP: ALAN Wilde Status:ADM I N Y Race: C Location: [place] [address] 4-1 Anesthesia Postop Eval I Sum Postop Eval Completion status Anesthesia document: Postop Eval 1 completed: Yes Anesthesia Postop Eval I Summary Anesthesia Postop Eval I Summary: Anesthesia Postop Eval I: Assessment Summary 3 Airway patent Yes 06/27/24 15:17 [email or web address] Spontaneous unlabored Yes 06/27/24 15:17 [email or web address] respirations Mental status Awake,Calm 06/27/24 15:17 [email or web address] nausea No 06/27/24 15:17 [email or web address] Vomiting No 06/27/24 15:17 [email or web address] Anesthesia Postop Eval I: Fluid Summary Crystalloid volume administer 300 06/27/24 15:17 [email or web address] (ml) Colloids volume administered ( ml) Blood Product volume administered (ml) Total IV fluid infused 300 06/27/24 15:17 [email or web address] Anesthesia Postop Eval I: Summary Notes Anesthesia Complication No 06/27/24 15:17 [email or web address] Anesthesia Complication Comment: Post-operative progress note Anesthesia: Postop Eval II Evaluation Mental status: Awake Pain Level: 0 nausea: No Vomiting: No 06/27/24 1540 <Electronically signed by Carlos Yanes MD > Date _ Carlos Lyman Signature: Date CC: ~ Signed [facility] Work Phone: 1(447) 824-594005-20-2025 Consult note Author Cj Ribeiro [facility] Note Date/Time June 27, 2024 3:17p [facility] Medical Records Department [address] [place] [address] Anesthesia Postop Eval I 06/27/241515 MR#: [id number] Acct: [id number] Name: ANALILIA MELENDREZ Rep #:[id number] : 1960 63 From: Cj Ribeiro PCP: ALAN Wilde Status:ADM I N Y Race: C Location: [place] [address] Anesthesia: Postop Eval I Current Vital Signs Temperature: 97.1 F Pulse Rate: 77 Blood Pressure: 81/61 Respiratory Rate: 18 Pulse Ox: 93 Oxygen Delivery Method: Room Air Assessment Airway patent: Yes Spontaneous unlabored respirations: Yes Mental status: Awake and Calm nausea: No Vomiting: No Anesthesia Complication: No Fluid Hydration Crystalloid volume administer (ml): 300 Total IV fluid infused: 300 Progress Note Anesthesia document: Postop Eval 1 completed: Yes 06/27/241516 <Electronically signed by Cj Ribeiro > Date _ Cj Lyman Signature: Date CC: ~ Signed [facility] Work Phone: 1(259) 596-291905-20-2025 Consult note Author Carlos Yanes [facility] Note Date/Time June 27, 2024 2:53p m [facility] Medical Records Department [address] [place] [address] Pre-Anesthesia Evaluation 06/27/24 4962 MR#: [id number] Acct: [id number] Name: ANALILIA MELENDREZ Rep #:[id number] : 1960 63 From: Carlos Yanes MD PCP: VINOD WildeC Status:ADM I N Y Race: C Location: [place] [address] ASA Classification* ASA Classification ASA Classification: 3 Assessment & Plan Anesthesia* Anesthesia Assessment Anesthesia Assessment: Discussed sedation and/or anesthesia options, risks, benefits, and alternatives with patient/parents/legal guardian/POA. Questions invited. The patient/parents/legal guardian/POA seems to understand and agrees to proceedwith anesthesia plan. Reviewed the physical assessment, medical history, allergy history and patient home medications list prior to surgery/procedure/anesthetic and documented any changes. Performed airway and anesthesia risk assessments. Anesthesia Type Anesthesia Type: MAC Anesthesia Focused Assessment* Temperature: 98.3 F Pulse Rate: 79 Blood Pressure: 109/71 Respiratory Rate: 18 Pulse Ox: 92 Airway Assessment Mouth opens: >3 cm Mallampati Score: II Focused Labs Anesthesia Preop lab: CBC WBC 3.5 K/mm3 (4.4-11.0) L 06/27/24 05:00 06/27/24 RBC 2.42 M/mm3 (4.6-6.2) L 06/27/24 05:00 06/27/24 Hgb 8.7 g/dL (13.0-16.5) L 06/27/24 05:00 06/27/24 Hct 26.2 % (40-54) L 06/27/24 05:00 06/27/24 Plt Count 115 K/mm3 (150-450) L 06/27/24 05:00 06/27/24 CHEMISTRY Potassium 3.5 mmol/L (3.3-5.1) 06/27/24 05:00 06/27/24 Sodium 142 mmol/L (133-145) 06/27/24 05:00 06/27/24 Magnesium 1.5 mg/dL (1.5-2.2) 06/27/24 05:00 06/27/24 Phosphorus 2.7 mg/dL (2.7-4.5) 06/27/24 05:00 06/27/24 BUN 7 mg/dL (4-19) 06/27/24 05:00 06/27/24 Creatinine 1.07 mg/dL (0.70-1.20) 06/27/24 05:00 06/27/24 Glucose 134 mg/dL (70-99) H 06/27/24 05:00 06/27/24 POC Glucose 111 mg/dL (74-106) H 06/27/24 12:18 06/27/24 TSH 1.740 uIU/mL (0.300-4.200) 06/26/24 05:25 06/08 11/02 COAG PT 17.4 SECONDS (11.7-14.9) H 06/27/24 05:06/09 Pre-Assessment Diagnosis/Proposed Procedure Planned Operative Procedure(s): EGD 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 - 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 When Was Last Pacemaker Check per pt last year 06/26/24 22:53 QUESTION #4 FULL TEXT: You/Your Family Experience fever (hyperthermia) with Anesthesia Last Oral Intake Last Oral intake: Last Oral Intake NPO since 00:00 06/26/24 22:53 Meds taken in AM with sips of No 06/26/24 22:53 water? 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 - naval architect specialist: PONV - naval architect specialist Female HX of Motion Sickness HX of N/V After Surgery Non-Smoker Duration of Surgery greater than 60 minutes Number of Risk Factors PONV Score Height & Weight Height & Weight: Anesthesia: Height & Weight Height 5 ft 11 in 06/26/24 22:53 Weight: 75.2 kg 06/27/24 05:39 Body Mass Index (BMI) 23.2 06/27/24 05:39 Respiratory Assessment Respiratory Assessment - naval architect specialist: Respiratory Tract Infection Hx - naval architect specialist Hx Respiratory Tract Infection No 06/26/24 22:53 STOP Sleep Apnea STOP Sleep Apnea - naval architect specialist: STOP Sleep Apnea - naval architect specialist Hx Hypertension Yes 06/26/24 00:18 Hx Sleep Apnea No 06/26/24 00:18 CPAP BIPAP Do you snore loudly (louder No 06/26/24 00:18 than talking or can be heard Do you often feel tired/ Yes 06/26/24 00:18 fatigued/ sleepy during daytime? Has anyone observed you stop No 06/26/24 00:18 breathing during sleep? STOP Results Positive 06/26/24 00:18 QUESTION #5 FULL TEXT : Do you snore loudly (louder than talking or can be heard through closed doors)? Tobacco Use History Tobacco Use History - naval architect specialist: Tobacco Use History - naval architect specialist Tobacco Use Smoking Status Current every day smoker 06/26/24 03:49 Hx Tobacco Use Yes 06/26/24 00:18 Years Smoking Packs Smoked per Day Smoking Cessation Date was within the last 15 years Hx Smoking Cessation Date Hx Smoking Cessation No 06/26/24 00:18 Counseling Hematologic Medial History Hematologic Hx - naval architect specialist: Hematologic Medical Hx - clinical documentation developer Hx of Blood Transfusion No 06/26/24 00:18 Hx of Transfusion in last 3 No 06/26/24 00:18 Months Date of Last Transfusion (if within last 3 months) Ever experience any problems No 06/26/24 00:18 with transfusion(s)? Specify any problems Hx of Preganancy in last 3 N/A 06/26/24 00:18 Months Nurse Filling Out Transfusion EYOUNG 06/26/24 00:18 & Questions: Date: 06/26/24 06/26/24 00:18 Time: 00:06/26/24 00:18 Patient unable to answer at this time (ie. 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 INHALATION Q2H PRN PRN SOB &/OR WHEEZING Atorvastatin Calcium 10 mg 06/26/24 10:00 06/27/24 08:17 Atorvastatin Calcium 10 Mg Tablet PO Not Given DAILY KUNAL Dicyclomine HCl 20 mg 06/26/24 07:42 06/26/24 21:41 Dicyclomine 10 Mg Capsule PO 20 mg Q6H PRN PRN Administration abdominal discomfort Folic Acid 1 mg 06/26/24 08:00 06/27/24 08:16 Folic Acid 1 Mg Tablet PO Not Given BREAKFAST KUNAL Furosemide 40 mg 06/26/24 10:00 06/27/24 08:17 Furosemide 40 Mg Tablet PO Not Given DAILY KUNAL Protocol Gabapentin 300 mg 06/27/24 10:00 06/27/24 08:19 Gabapentin 300 Mg Capsule PO Not Given DAILY KUNAL Glucagon 1 mg 06/26/24 00:39 Glucagon 1 Mg/Ml Syringe IM X1 PRN HYPOGLYCEMIA Protocol Glycerin/Hypromellose/Polyethylene 2 drp 06/26/24 21:37 06/27/24 12:22 Glycerin/Hypromellose/[id number] 15 Ml Bottle EACH EYE 2 drp Q1H PRN Administration DRY EYES Hydralazine HCl 5 mg 06/26/24 00:39 Hydralazine 20 Mg/Ml Vial IV Q8H PRN PRN SBP GREATER THAN 160 Protocol Hydralazine HCl 25 mg 06/26/24 14:00 06/27/24 05:04 Hydralazine 25 Mg Tablet PO Not Given TID KUNAL Protocol Dextrose 250 mls @ 0 mls/hr 06/26/24 00:39 Dextrose 10%-Water IV .Q0M PRN HYPOGLYCEMIA Protocol As Directed Sodium Chloride 250 mls @ 15 mls/hr 06/26/24 06:11 IV .[id number] PRN Saline Flush Sodium Chloride 250 mls @ 15 mls/hr 06/26/24 06:11 IV .[id number] PRN Additional IVPB Infusion Lactated Ringer's 1,000 mls @ 15 mls/hr 06/27/24 14:15 06/27/24 14:26 IV 15 mls/hr .Q48H KUNAL Administration Insulin Glargine 5 unit 06/26/24 12:00 06/27/24 12:21 Insulin Glargine-Yfgn 100 Unit/Ml Pen SC Not Given 1200 KUNAL Insulin Human Lispro 0 unit 06/26/24 00:39 06/27/24 12:20 Insulin Lispro 100 Unit/Ml Insuln.Pen SC Not Given Q6 [facility] Protocol Lorazepam 0.5 mg 06/26/24 00:39 Lorazepam 2 Mg/Ml Wch Syringe IV Q4H PRN PRN AGITATION Melatonin 6 mg 06/26/24 22:22 06/26/24 22:52 Melatonin 3 Mg Tablet PO 6 mg QHS PRN PRN Administration SLEEP Metoprolol Succinate 25 mg 06/26/24 10:00 06/27/24 08:19 Metoprolol(Xl)Succ 25 Mg Tablet PO Not Given BID [facility] Protocol Morphine Sulfate 2 mg 06/26/24 00:39 06/26/24 01:59 Morphine 2 Mg/Ml Syringe IV 2 mg Q4H PRN PRN Administration Pain Score 6-10 Multivitamins 1 tablet 06/26/24 08:00 06/27/24 08:16 Multivitamins,Therapeutic Tablet PO Not Given DAILYCM [facility] Nicotine 14 mg 06/26/24 00:39 06/27/24 08:18 Nicotine 14 Mg Patch TD 14 mg DAILY KUNAL Administration Ondansetron HCl 4 mg 06/26/24 00:39 Ondansetron 4 Mg/2 Ml Vial IV Q8H PRN PRN NAUSEA/VOMITING Pancrelipase 1 cap 06/27/24 08:00 06/27/24 12:20 Creon 24[address] Capsule PO Not Given TIDCM [facility] Pantoprazole Sodium 40 mg 06/26/24 22:00 06/27/24 08:19 Pantoprazole Sodium 40 Mg Tablet PO Not Given BID [facility] Polyethylene Glycol 17 gm 06/26/24 12:45 06/27/24 08:18 Polyethylene Glycol 3350 17 Gm Packet PO Not Given BID [facility] Promethazine HCl 25 mg 06/26/24 00:39 Promethazine 25 Mg/Ml Syringe IM Q6H PRN PRN Breakthrough Nausea/Vomiting Sodium Chloride 10 - 40 ml 06/26/24 00:11 0.9 % Nacl (Sterile) Posiflush 10 Ml IV UD PRN Port access or dressing change Sodium Chloride 10 - 40 ml 06/26/24 00:11 06/27/24 05:05 0.9% Saline Lock 10 Ml Syringe IV 10 ml UD PRN Administration Midline Flush Sodium Chloride 10 - 40 ml 06/26/24 00:11 0.9% Saline Lock 10 Ml Syringe IV UD PRN SALINE FLUSH Sodium Chloride 10 - 40 ml 06/26/24 21:06 0.9% Saline Lock 10 Ml Syringe IV UD PRN SALINE FLUSH Spironolactone 12.5 mg 06/26/24 10:00 06/27/24 08:17 Spironolactone 25 Mg Tablet PO Not Given DAILY [facility] Protocol Thiamine HCl 100 mg 06/26/24 08:00 06/27/24 08:17 Thiamine Hydrochloride 100 Mg [facility] Medical History MALIK (acute kidney injury) Seizures Alcoholic hepatitis Chronic pancreatitis Gastric wall thickening Alcohol dependence Abdominal ascites Anxiety Diabetes Pancreatitis Myocardial infarct Pacemaker AAA (abdominal aortic aneurysm) Admitted to alcohol detoxification center Alcohol abuse Hx of hypercholesterolemia History of diabetes mellitus Alcohol dependence Substance abuse Smoker Alcoholism Right bundle branch block (RBBB) Non-sustained ventricular tachycardia Thoracic aortic aneurysm SVT (supraventricular tachycardia) Ascending aortic dissection (~2005) Pure hypercholesterolemia Adrenal nodule Hiatal hernia Left carotid bruit Cardiac pacemaker in situ (~06/2016) Essential hypertension Pacemaker Sick sinus syndrome Tobacco use HTN (hypertension) Diabetes mellitus, type II Home Medications ?Medication ?Instructions ?Recorded ?Last Taken ?Type atorvastatin 10 mg tablet 10 mg PO DAILY CHOLESTEROL 0 10/17/20 04/19/23 History hydralazine 25 mg tablet 25 mg PO TID BP 10/17/2001/01 History dapagliflozin propanediol 10 mg 10 mg PO DAILY DIABETE S 09/30/21 04/19/23 History tablet (Farxiga) Held on 05/20/23. Instructions: Hold it because of MALIK. multivitamin 1 tab PO DAILY SUPPLEMENT 11/10/21 History gabapentin 300 mg capsule 300 mg PO DAILY NEUROPATHY 1 Unknown History insulin glargine 100 unit/mL (3 10 unit subcut 1200 DI ABETES 11/14/22 04/19/23 History mL) subcutaneous pen (Lantus Solostar U-100 Insulin) metformin 500 mg tablet,extended 500 mg PO BID DIABETE S 11/15/22 04/19/23 History release 24 hr Held on 05/20/23. Instructions: Hold at least 1 week . Discontinue if creatinine clearance less than 30 mill per minute L.acidophil,salivari-Bifido 2 cap PO BID #0 caps 05/19 Unknown Rx bifidum-Strep thermoph 175 mg capsule dicyclomine 10 mg capsule 20 mg (2 x 10 mg) PO Q6H PRN PRN 05/20/23 Unknown Rx abdominal discomfort #0 caps folic acid 1 mg tablet 1 mg PO DAILY@0800 #0 tabs 0 05/20/23 Unknown Rx furosemide 40 mg tablet 40 mg PO DAILY #30 tabs 05/09 03/03 Unknown Rx insulin lispro 100 unit/mL See Protocol subcut ACHS #0 mL 05/20/23 Unknown Rx subcutaneous pen (Humalog KwikPen (U-100) Insulin) metoprolol succinate 25 mg 25 mg PO BID 30 days #60 ta bs 05/20/23 Unknown Rx tablet,extended release 24 hr spironolactone 25 mg tablet 12.5 mg (1/2 x 25 mg) PO D AILY #30 05/20/23 Unknown Rx tabs thiamine HCl (vitamin B1) 100 mg 100 mg PO DAILYCM #0 tabs 05/20/23 Unknown Rx tablet (Vitamin B-1) pantoprazole 40 mg tablet,delayed 40 mg PO BID #60 tab s 06/27/23 Unknown Rx release Allergy/AdvReac Type Severity Reaction Status Date / Time No Known Allergies Allergy Verified 05/09/23 13:37 Family History Father CAD (coronary artery disease) Mother Dementia Surgical History H/O cardiac catheterization History of aortic aneurysm repair (~2016) History of cataract surgery History of hernia repair History of aortic valve replacement with bioprosthetic valve (~2016) H/O aortic valve replacement Social History household members: family housing: house Smoking Status: Current every day smoker tobacco type: cigarettes alcohol intake: current alcohol intake frequency: 0-2 drinks per day details: Reports currently ~ 2 tall boys daily. substance use type: former substance user caffeine: Yes Type: coffee Number of servings: 3 Review of Systems (Anesthesia) ROS Narrative System reviewed and no additional complaints, except as documented. 06/27/24 8323 <Electronically signed by Carlos Yanes MD > Date _ Carlos Yanes MD Cosigner Signature: Date CC: ~ Signed [facility] Work Phone: 1(315) 283-639205-20-2025 Progress note Author Antony Friend [facility] Note Date/Time June 27, 2024 2:46p m [facility] Medical Records Department [address] [place] [address] Progress Note 06/27/24 1444 MR#: [id number] Acct: [id number] Name: ANALILIA MELENDREZ Rep #:[id number] : 1960 63 From: Antony Espitia DO PCP: ALAN Wilde Status:ADM I N Location: [place] [address] Progress Note Patient is for upper endoscopy today to evaluate patient his upper GI tract for signs of blood loss anemia including varices, Mario erosions, portal hypertension, gastric antral vascular ectasia in the setting of cirrhosis. Physical Exam Const alert, oriented x3, no apparent distress and average body habitus Constitutional Narrative: Patient appears chronically ill and older than his stated age. General Appearance: cooperative HEENT normocephalic, head/scalp atraumatic and hearing grossly normal bilaterally Eyes PERRL, EOMs intact bilaterally and conjunctivae normal Neck no lymphadenopathy, supple and no JVD Resp normal respiratory effort, no retractions, no use of accessory muscles and clearto auscultation bilaterally Cardio regular rate and regular rhythm GI GI Narrative: Patient's abdomen is distended with positive fluid wave and tender to palpation diffusely with bruising in abdomen likely from insulin injections. There is no rebound or guarding. Extremity normal to inspection, full ROM and no clubbing, cyanosis or edema Skin Skin Narrative: Patient has bruising over abdomen likely from recent insulin injections. Neuro oriented x3, CN's II-XII intact bilaterally, moves all extremities and no focal motor deficits Sensorium / Orientation: awake, alert, oriented to person, oriented to place andoriented to time Speech: speech normal Psych affect normal Assessment & Plan Assessment/Plan (1) Chronic alcohol abuse: (2) Hypokalemia: (3) Chronic diarrhea: (4) Lactic acidosis: (5) Adverse drug reaction: QUALIFIERS: Encounter type: initial encounter Qualified Code(s): T50.905A - Adverse effect of unspecified drugs, medicaments and biological substances, initial encounter (6) Ascites due to alcoholic cirrhosis: (7) Macrocytosis associated with alcohol: PLAN: Plan 63-year-old with past medical history of chronic alcohol abuse complicated by macrocytosis, thrombocytopenia, coagulopathy, protein calorie malnutrition, chronic pancreatitis as seen on imaging and cirrhosis with new onset ascites. His current MELD is 20 and he has a Child-Ndiaye class B-C. A?MELD score of 20 indicates a 19.6% 3-month mortality rate, while a Child- Pughclass B-C indicates a?30%-82% perioperative mortality rate depending on the specific class.?These scores are used to assess the severity of liver disease and predict mortality risk in patients with cirrhosis.? - Decompensated alcoholic cirrhosis with ascites-status post large-volume paracentesis. The patient says that he has not had a drink in a long time. Hislabs from last year showed that he was viral hepatitis A, B and C negative. He will need to be vaccinated for hepatitis AMB as an outpatient. He also will need to be checked for HIV. He will need to be started on diuretics. He is noted as an outpatient to be on furosemide 40 mg a day and spironolactone 12.5 mg a day. His goal should be 80 mg of furosemide and 100 mg 2 200 mg of spironolactone a day. This depends on his kidney function. He should be screened for esophageal varices with an upper endoscopy. He should also get a protein electrophoresis as there is associated with a monoclonal gammopathy withalcoholic cirrhosis. - Chronic alcoholic pancreatitis-I think his weight loss and diarrhea is likely associated with exocrine pancreatic insufficiency secondary to chronic pancreatitis and inability to secrete appropriate pancreatic enzymes for absorption. He should get a fecal elastase checked along with an IBD SGI and ESR and CRP. - Thrombocytopenia -likely secondary to splenic sequestration in the setting of cirrhosis. On his imaging he does not have significant splenomegaly. - Hepatomegaly-secondary to fatty liver disease from alcohol. He could have a significant amount of good liver left if he is able to get his ascites under control as he does not have splenomegaly. Particularly that is a reversible andat least a worsening portal hypertension and the complications associated with worsening portal hypertension. 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 - 500 mg sodium restriction -Further recommendation to follow Patient will undergo an upper endoscopy today. He was explained alternatives, risk and benefits including withstanding bleeding, infection, sepsis, perforation, need for surgery . He will have an ASA of 3. 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 Status:ADM I N Y Race: C Location: [place] [address] 4-1 Anesthesia: Postop Eval I Current Vital Signs Temperature: 97.1 F Pulse Rate: 77 Blood Pressure: 81/61 Respiratory Rate: 18 Pulse Ox: 93 Oxygen Delivery Method: Room Air Assessment Airway patent: Yes Spontaneous unlabored respirations: Yes Mental status: Awake and Calm nausea: No Vomiting: No Anesthesia Complication: No Fluid Hydration Crystalloid volume administer (ml): 300 Total IV fluid infused: 300 Progress Note Anesthesia document: Postop Eval 1 completed: Yes 06/27/24 1517 > Date _ Cj Lyman Signature: Date CC: ~ Signed [facility]05-20-2025 Procedure note [facility] Medical Records Department [address] [place] [address] EGD Report MR#: [id number] Acct: [id number] Name: ANALILIA MELENDREZ Rep #:[id number] : 1960 63 From: Antony Espitia DO PCP: ALAN Wilde Status:ADM I N Patient Name: Analilia Melendrez Procedure Date: 06/27/2024 2:47 PM Date of : 1960 Age: 63 Procedure: Upper GI endoscopy Indications: Epigastric abdominal pain, Cirrhosis with suspected esophageal varices Providers: Antony Espitia DO Referring MD: Rolan Romero Do Medicines: Monitored Anesthesia Care Patient Profile: This is a 63 year old male. Refer to note in patient chart for documentation of history and physical. Patient has symptoms of acute abdominal cramping, acute abdominal distention, acute epigastric abdominal pain, acute dyspepsia and acute nausea. Complications: No immediate complications. Procedure: Pre-Anesthesia Assessment: - Prior to the procedure, a History and Physical was performed, and patient medications and allergies were reviewed. The patient is competent. The risks and benefits of the procedure and the sedation options and risks were discussed with the patient. All questions were answered and informed consent was obtained. Patient identification and proposed procedure were verified by the physician in the pre-procedure area. Mental Status Examination: alert and oriented. Airway Examination: normal oropharyngeal airway and neck mobility. Respiratory Examination: clear to auscultation. CV Examination: normal. Prophylactic Antibiotics: The patient does not require prophylactic antibiotics. Prior Anticoagulants: The patient has taken no anticoagulant or antiplatelet agents. ASA Grade Assessment: II - A patient with mild systemic disease. After reviewing the risks and benefits, the patient was deemed in satisfactory condition to undergo the procedure. The anesthesia plan was to use monitored anesthesia care (MAC). Immediately prior to administration of medications, the patient was re-assessed for adequacy to receive sedatives. The heart rate, respiratory rate, oxygen saturations, blood pressure, adequacy of pulmonary ventilation, and response to care were monitored throughout the procedure. The physical status of the patient was re-assessed after the procedure. After obtaining informed consent, the endoscope was passed under direct vision. Throughout the procedure, the patient's blood pressure, pulse, and oxygen saturations were monitored continuously. The Endoscope was introduced through the mouth, and advanced to the third part of the duodenum. Small bowel enteroscopy was deemed necessary. The upper GI endoscopy was accomplished without difficulty. The patient tolerated the procedure well. Scope In: 3:05:04 PM Scope Out: 3:07:31 PM Total Procedure Duration Time 0 hours 2 minutes 27 seconds Findings: The examined esophagus was normal. Type 1 isolated gastric varices (IGV1, varices located in the fundus) with no bleeding were found in the cardia and in the gastric fundus. There were no stigmata of recent bleeding. Severe portal hypertensive gastropathy was found in the entire examined stomach. Biopsies were taken with a cold forceps for histology. Biopsies were taken with a cold forceps for Helicobacter pylori testing. Verification of patient identification for the specimen was done. Estimated blood loss was minimal. No gross lesions were noted in the entire examined duodenum. Impression: - Normal esophagus. - Type 1 isolated gastric varices (IGV1, varices located in the fundus), without bleeding. - Portal hypertensive gastropathy. Biopsied. - No gross lesions in the entire examined duodenum. Recommendation: - [facility]. - Resume regular diet. - Continue present medications. - Await pathology results. Procedure Code(s): --- Professional --- 40040, Small intestinal endoscopy, enteroscopy beyond second portion of duodenum, not including ileum; with biopsy, single or multiple CPT copyright 2021 [employer]. All rights reserved. The codes documented in this report are preliminary and upon security and compliance analyst review may be revised to meet current compliance requirements. Antony Espitia DO 06/27/2024 3:14:55 PM This report has been signed electronically. Number of Addenda: 0 Note Initiated On: 06/27/2024 2:47 PM 06/27/24 1515 Date _ Antony Espitia DO Cosigner Signature: Date (if indicated) CC: ALAN Wagner; Antony Espitia DO ~ Date Dictated: 06/27/24 1447 Date Transcribed: Utilization Review Coordinator: RF Signed [facility]05-20-2025 Procedure note [facility] Medical Records Department [address] [place] [address] Operative Report - CC Letter MR#: [id number] Acct: [id number] Name: ANALILIA MELENDREZ Rep #:[id number] : 1960 63 From: Antony Espitia DO PCP: ALAN Wilde Status:ADM I N 06/27/2024 Alan Wilde Re : Upper GI endoscopy procedure for Analilia Melendrez Rafaela Wagner This procedure was performed on Thursday, June 27, 2024. My impressions and recommendations are as follows: Impressions : - Normal esophagus. - Type 1 isolated gastric varices (IGV1, varices located in the fundus), without bleeding. - Portal hypertensive gastropathy. Biopsied. - No gross lesions in the entire examined duodenum. Recommendations : - [facility]. - Resume regular diet. - Continue present medications. - Await pathology results. My findings are described in the full procedure note, which is enclosed. If I can be of further assistance, please feel free to contact me at . Sincerely, Antony Nupur 06/27/2024 3:14:55 PM This report has been signed electronically. 06/27/24 1515 Date _ Antony Nupur Cosigner Signature: Date (if indicated) CC: ALAN Wagner; Dr. Rolan Romero, DO; Dr. Conrado Pro, DO; Dr. Melonie De La Rosa, DO ~ Date Dictated: 06/27/24 1447 Date Transcribed: Utilization Review Coordinator: RF Signed [facility]05-20-2025 Consult note [facility] Medical Records Department [address] [place] [address] Pre-Anesthesia Evaluation 06/27/24 1452 MR#: [id number] Acct: [id number] Name: ANALILIA MELENDREZ Rep #:[id number] : 1960 63 From: Carlos Yanes MD PCP: ALAN Wilde Status:ADM I N Y Race: C Location: [place] [address] ASA Classification* ASA Classification ASA Classification: 3 Assessment & Plan Anesthesia* Anesthesia Assessment Anesthesia Assessment: Discussed sedation and/or anesthesia options, risks, benefits, and alternatives with patient/parents/legal guardian/POA. Questions invited. The patient/parents/legal guardian/POA seems to understand and agrees to proceedwith anesthesia plan. Reviewed the physical assessment, medical history, allergy history and patient home medications list prior to surgery/procedure/anesthetic and documented any changes. Performed airway and anesthesia risk assessments. Anesthesia Type Anesthesia Type: MAC Anesthesia Focused Assessment* Temperature: 98.3 F Pulse Rate: 79 Blood Pressure: 109/71 Respiratory Rate: 18 Pulse Ox: 92 Airway Assessment Mouth opens: >3 cm Mallampati Score: II Focused Labs Anesthesia Preop lab: CBC WBC 3.5 K/mm3 (4.4-11.0) L 06/27/24 05:00 06/27/24 RBC 2.42 M/mm3 (4.6-6.2) L 06/27/24 05:00 06/27/24 Hgb 8.7 g/dL (13.0-16.5) L 06/27/24 05:00 06/27/24 Hct 26.2 % (40-54) L 06/27/24 05:00 06/27/24 Plt Count 115 K/mm3 (150-450) L 06/27/24 05:00 06/27/24 CHEMISTRY Potassium 3.5 mmol/L (3.3-5.1) 06/27/24 05:00 06/27/24 Sodium 142 mmol/L (133-145) 06/27/24 05:00 06/27/24 Magnesium 1.5 mg/dL (1.5-2.2) 06/27/24 05:00 06/27/24 Phosphorus 2.7 mg/dL (2.7-4.5) 06/27/24 05:00 06/27/24 BUN 7 mg/dL (4-19) 06/27/24 05:00 06/27/24 Creatinine 1.07 mg/dL (0.70-1.20) 06/27/24 05:00 06/27/24 Glucose 134 mg/dL (70-99) H 06/27/24 05:00 06/27/24 POC Glucose 111 mg/dL (74-106) H 06/27/24 12:18 06/27/24 TSH 1.740 uIU/mL (0.300-4.200) 06/26/24 05:25 06/08 11/02 COAG PT 17.4 SECONDS (11.7-14.9) H 06/27/24 05:00 06/09 Pre-Assessment Diagnosis/Proposed Procedure Planned Operative Procedure(s): EGD 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 - 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 When Was Last Pacemaker Check per pt last year 06/26/24 22:53 QUESTION #4 FULL TEXT: You/Your Family Experience fever (hyperthermia) with Anesthesia Last Oral Intake Last Oral intake: Last Oral Intake NPO since 00:00 06/26/24 22:53 Meds taken in AM with sips of No 06/26/24 22:53 water? 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 - naval architect specialist: PONV - naval architect specialist Female HX of Motion Sickness HX of N/V After Surgery Non-Smoker Duration of Surgery greater than 60 minutes Number of Risk Factors PONV Score Height & Weight Height & Weight: Anesthesia: Height & Weight Height 5 ft 11 in 06/26/24 22:53 Weight: 75.2 kg 06/27/24 05:39 Body Mass Index (BMI) 23.2 06/27/24 05:39 Respiratory Assessment Respiratory Assessment - naval architect specialist: Respiratory Tract Infection Hx - naval architect specialist Hx Respiratory Tract Infection No 06/26/24 22:53 STOP Sleep Apnea STOP Sleep Apnea - naval architect specialist: STOP Sleep Apnea - naval architect specialist Hx Hypertension Yes 06/26/24 00:18 Hx Sleep Apnea No 06/26/24 00:18 CPAP BIPAP Do you snore loudly (louder No 06/26/24 00:18 than talking or can be heard Do you often feel tired/ Yes 06/26/24 00:18 fatigued/ sleepy during daytime? Has anyone observed you stop No 06/26/24 00:18 breathing during sleep? STOP Results Positive 06/26/24 00:18 QUESTION #5 FULL TEXT : Do you snore loudly (louder than talking or can be heard through closeddoors)? Tobacco Use History Tobacco Use History - naval architect specialist: Tobacco Use History - naval architect specialist Tobacco Use Smoking Status Current every day smoker 06/26/24 03:49 Hx Tobacco Use Yes 06/26/24 00:18 Years Smoking Packs Smoked per Day Smoking Cessation Date was within the last 15 years Hx Smoking Cessation Date Hx Smoking Cessation No 06/26/24 00:18 Counseling Hematologic Medial History Hematologic Hx - naval architect specialist: Hematologic Medical Hx - clinical documentation developer Hx of Blood Transfusion No 06/26/24 00:18 Hx of Transfusion in last 3 No 06/26/24 00:18 Months Date of Last Transfusion (if within last 3 months) Ever experience any problems No 06/26/24 00:18 with transfusion(s)? Specify any problems Hx of Preganancy in last 3 N/A 06/26/24 00:18 Months Nurse Filling Out Transfusion EYOUNG 06/26/24 00:18 & Questions: Date: 06/26/24 06/26/24 00:18 Time: 00:19 06/26/24 00:18 Patient unable to answer at this time (ie. 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 INHALATION Q2H PRN PRN SOB &/OR WHEEZING Atorvastatin Calcium 10 mg 06/26/24 10:00 06/27/24 08:17 Atorvastatin Calcium 10 Mg Tablet PO Not Given DAILY KUNAL Dicyclomine HCl 20 mg 06/26/24 07:42 06/26/24 21:41 Dicyclomine 10 Mg Capsule PO 20 mg Q6H PRN PRN Administration abdominal discomfort Folic Acid 1 mg 06/26/24 08:00 06/27/24 08:16 Folic Acid 1 Mg Tablet PO Not Given BREAKFAST KUNAL Furosemide 40 mg 06/26/24 10:00 06/27/24 08:17 Furosemide 40 Mg Tablet PO Not Given DAILY KUNAL Protocol Gabapentin 300 mg 06/27/24 10:00 06/27/24 08:19 Gabapentin 300 Mg Capsule PO Not Given DAILY KUNAL Glucagon 1 mg 06/26/24 00:39 Glucagon 1 Mg/Ml Syringe IM X1 PRN HYPOGLYCEMIA Protocol Glycerin/Hypromellose/Polyethylene 2 drp 06/26/24 21:37 06/27/24 12:22 Glycerin/Hypromellose/[id number] 15 Ml Bottle EACH EYE 2 drp Q1H PRN Administration DRY EYES Hydralazine HCl 5 mg 06/26/24 00:39 Hydralazine 20 Mg/Ml Vial IV Q8H PRN PRN SBP GREATER THAN 160 Protocol Hydralazine HCl 25 mg 06/26/24 14:00 06/27/24 05:04 Hydralazine 25 Mg Tablet PO Not Given TID [facility] Protocol Dextrose 250 mls @ 0 mls/hr 06/26/24 00:39 Dextrose 10%-Water IV .Q0M PRN HYPOGLYCEMIA Protocol As Directed Sodium Chloride 250 mls @ 15 mls/hr 06/26/24 06:11 IV .[id number] PRN Saline Flush Sodium Chloride 250 mls @ 15 mls/hr 06/26/24 06:11 IV .[id number] PRN Additional IVPB Infusion Lactated Ringer's 1,000 mls @ 15 mls/hr 06/27/24 14:15 06/27/24 14:26 IV 15 mls/hr .Q48H KUNAL Administration Insulin Glargine 5 unit 06/26/24 12:00 06/27/24 12:21 Insulin Glargine-Yfgn 100 Unit/Ml Pen SC Not Given 1200 KUNAL Insulin Human Lispro 0 unit 06/26/24 00:39 06/27/24 12:20 Insulin Lispro 100 Unit/Ml Insuln.Pen SC Not Given Q6 [facility] Protocol Lorazepam 0.5 mg 06/26/24 00:39 Lorazepam 2 Mg/Ml Wch Syringe IV Q4H PRN PRN AGITATION Melatonin 6 mg 06/26/24 22:22 06/26/24 22:52 Melatonin 3 Mg Tablet PO 6 mg QHS PRN PRN Administration SLEEP Metoprolol Succinate 25 mg 06/26/24 10:00 06/27/24 08:19 Metoprolol(Xl)Succ 25 Mg Tablet PO Not Given BID [facility] Protocol Morphine Sulfate 2 mg 06/26/24 00:39 06/26/24 01:59 Morphine 2 Mg/Ml Syringe IV 2 mg Q4H PRN PRN Administration Pain Score 6-10 Multivitamins 1 tablet 06/26/24 08:00 06/27/24 08:16 Multivitamins,Therapeutic Tablet PO Not Given DAILYCM [facility] Nicotine 14 mg 06/26/24 00:39 06/27/24 08:18 Nicotine 14 Mg Patch TD 14 mg DAILY KUNAL Administration Ondansetron HCl 4 mg 06/26/24 00:39 Ondansetron 4 Mg/2 Ml Vial IV Q8H PRN PRN NAUSEA/VOMITING Pancrelipase 1 cap 06/27/24 08:00 06/27/24 12:[address]on [address] Capsule PO Not Given TIDCM [facility] Pantoprazole Sodium 40 mg 06/26/24 22:00 06/27/24 08:19 Pantoprazole Sodium 40 Mg Tablet PO Not Given BID [facility] Polyethylene Glycol 17 gm 06/26/24 12:45 06/27/24 08:18 Polyethylene Glycol 3350 17 Gm Packet PO Not Given BID [facility] Promethazine HCl 25 mg 06/26/24 00:39 Promethazine 25 Mg/Ml Syringe IM Q6H PRN PRN Breakthrough Nausea/Vomiting Sodium Chloride 10 - 40 ml 06/26/24 00:11 0.9 % Nacl (Sterile) Posiflush 10 Ml IV UD PRN Port access or dressing change Sodium Chloride 10 - 40 ml 06/26/24 00:11 06/27/24 05:05 0.9% Saline Lock 10 Ml Syringe IV 10 ml UD PRN Administration Midline Flush Sodium Chloride 10 - 40 ml 06/26/24 00:11 0.9% Saline Lock 10 Ml Syringe IV UD PRN SALINE FLUSH Sodium Chloride 10 - 40 ml 06/26/24 21:06 0.9% Saline Lock 10 Ml Syringe IV UD PRN SALINE FLUSH Spironolactone 12.5 mg 06/26/24 10:00 06/27/24 08:17 Spironolactone 25 Mg Tablet PO Not Given DAILY [facility] Protocol Thiamine HCl 100 mg 06/26/24 08:00 06/27/24 08:17 Thiamine Hydrochloride 100 Mg [facility]t [facility] Medical History MALIK (acute kidney injury) Seizures Alcoholic hepatitis Chronic pancreatitis Gastric wall thickening Alcohol dependence Abdominal ascites Anxiety Diabetes Pancreatitis Myocardial infarct Pacemaker AAA (abdominal aortic aneurysm) Admitted to alcohol detoxification center Alcohol abuse Hx of hypercholesterolemia History of diabetes mellitus Alcohol dependence Substance abuse Smoker Alcoholism Right bundle branch block (RBBB) Non-sustained ventricular tachycardia Thoracic aortic aneurysm SVT (supraventricular tachycardia) Ascending aortic dissection (~2005) Pure hypercholesterolemia Adrenal nodule Hiatal hernia Left carotid bruit Cardiac pacemaker in situ (~06/2016) Essential hypertension Pacemaker Sick sinus syndrome Tobacco use HTN (hypertension) Diabetes mellitus, type II Home Medications ?Medication ?Instructions ?Recorded ?Last Taken ?Type atorvastatin 10 mg tablet 10 mg PO DAILY CHOLESTEROL 0 10/17/20 04/19/23 History hydralazine 25 mg tablet 25 mg PO TID BP 10/17/2001/01 History dapagliflozin propanediol 10 mg 10 mg PO DAILY DIABETE S 09/30/21 04/19/23 History tablet (Farxiga) Held on 05/20/23. Instructions: Hold it because of MALIK. multivitamin 1 tab PO DAILY SUPPLEMENT 11/10/21 History gabapentin 300 mg capsule 300 mg PO DAILY NEUROPATHY 1 Unknown History insulin glargine 100 unit/mL (3 10 unit subcut 1200 DI ABETES 11/14/22 04/19/23 History mL) subcutaneous pen (Lantus Solostar U-100 Insulin) metformin 500 mg tablet,extended 500 mg PO BID DIABETE S 11/15/22 04/19/23 History release 24 hr Held on 05/20/23. Instructions: Hold at least 1 week . Discontinue if creatinine clearance less than 30 mill per minute L.acidophil,salivari-Bifido 2 cap PO BID #0 caps 05/19 Unknown Rx bifidum-Strep thermoph 175 mg capsule dicyclomine 10 mg capsule 20 mg (2 x 10 mg) PO Q6H PRN PRN 05/20/23 Unknown Rx abdominal discomfort #0 caps folic acid 1 mg tablet 1 mg PO DAILY@0800 #0 tabs 0 05/20/23 Unknown Rx furosemide 40 mg tablet 40 mg PO DAILY #30 tabs 05/09 03/03 Unknown Rx insulin lispro 100 unit/mL See Protocol subcut ACHS #0 mL 05/20/23 Unknown Rx subcutaneous pen (Humalog KwikPen (U-100) Insulin) metoprolol succinate 25 mg 25 mg PO BID 30 days #60 ta bs 05/20/23 Unknown Rx tablet,extended release 24 hr spironolactone 25 mg tablet 12.5 mg (1/2 x 25 mg) PO D AILY #30 05/20/23 Unknown Rx tabs thiamine HCl (vitamin B1) 100 mg 100 mg PO DAILYCM #0 tabs 05/20/23 Unknown Rx tablet (Vitamin B-1) pantoprazole 40 mg tablet,delayed 40 mg PO BID #60 tab s 06/27/23 Unknown Rx release Allergy/AdvReac Type Severity Reaction Status Date / Time No Known Allergies Allergy Verified 05/09/23 13:37 Family History Father CAD (coronary artery disease) Mother Dementia Surgical History H/O cardiac catheterization History of aortic aneurysm repair (~2016) History of cataract surgery History of hernia repair History of aortic valve replacement with bioprosthetic valve (~2016) H/O aortic valve replacement Social History household members: family housing: house Smoking Status: Current every day smoker tobacco type: cigarettes alcohol intake: current alcohol intake frequency: 0-2 drinks per day details: Reports currently ~ 2 tall boys daily. substance use type: former substance user caffeine: Yes Type: coffee Number of servings: 3 Review of Systems (Anesthesia) ROS Narrative System reviewed and no additional complaints, except as documented. 06/27/24 1453 > Date _ Carlos Yanes MD Cosigner Signature: Date CC: ~ Signed [facility]05-20-2025 Progress note [facility] Medical Records Department [address] [place] [address] Progress Note 06/27/24 1444 MR#: [id number] Acct: [id number] Name: ANALILIA MELENDREZ Rep #:[id number] : 1960 63 From: Antony Friend DO PCP: Marianna Wagner, VEHICLE MODIFICATION TECHNICIAN-C Status:ADM I N Location: [place] [address] Progress Note Patient is for upper endoscopy today to evaluate patient his upper GI tract for signs of blood lossanemia including varices, Mario erosions, portal hypertension, gastric antral vascular ectasia inthe setting of cirrhosis. Physical Exam Const alert, oriented x3, no apparent distress and average body habitus Constitutional Narrative: Patient appears chronically ill and older than his stated age. General Appearance: cooperative HEENT normocephalic, head/scalp atraumatic and hearing grossly normal bilaterally Eyes PERRL, EOMs intact bilaterally and conjunctivae normal Neck no lymphadenopathy, supple and no JVD Resp normal respiratory effort, no retractions, no use of accessory muscles and clearto auscultation bilaterally Cardio regular rate and regular rhythm GI GI Narrative: Patient's abdomen is distended with positive fluid wave and tender to palpation diffusely with bruising in abdomen likely from insulin injections. There is no rebound or guarding. Extremity normal to inspection, full ROM and no clubbing, cyanosis or edema Skin Skin Narrative: Patient has bruising over abdomen likely from recent insulin injections. Neuro oriented x3, CN's II-XII intact bilaterally, moves all extremities and no focal motor deficits Sensorium / Orientation: awake, alert, oriented to person, oriented to place andoriented to time Speech: speech normal Psych affect normal Assessment & Plan Assessment/Plan (1) Chronic alcohol abuse: (2) Hypokalemia: (3) Chronic diarrhea: (4) Lactic acidosis: (5) Adverse drug reaction: QUALIFIERS: Encounter type: initial encounter Qualified Code(s): T50.905A - Adverse effect of unspecified drugs, medicaments and biological substances, initial encounter (6) Ascites due to alcoholic cirrhosis: (7) Macrocytosis associated with alcohol: PLAN: Plan 63-year-old with past medical history of chronic alcohol abuse complicated by macrocytosis, thrombocytopenia, coagulopathy, protein calorie malnutrition, chronic pancreatitis as seen on imaging and cirrhosis with new onset ascites. His current MELD is 20 and he has a Child-Ndiaye class B-C. A?MELD score of 20 indicates a 19.6% 3-month mortality rate, while a Child- Pughclass B-C indicates a?30%-82% perioperative mortality rate depending on the specific class.?These scores are used to assess the severity of liver disease and predict mortality risk in patients with cirrhosis.? - Decompensated alcoholic cirrhosis with ascites-status post large-volume paracentesis. The patientsays that he has not had a drink in a long time. Hislabs from last year showed that he was viral hepatitis A, B and C negative. He will need to be vaccinated for hepatitis AMB as an outpatient. He also will need to be checked for HIV. He will need to be started on diuretics. He is noted as an outpatient to be on furosemide 40 mg a day and spironolactone 12.5 mg a day. His goal should be 80 mg of furosemide and 100 mg 2 200 mg of spironolactone a day. This depends on his kidney function. He should be screened for esophageal varices with an upper endoscopy. He should also get a protein electrophoresis as there is associated with a monoclonal gammopathy withalcoholic cirrhosis. - Chronic alcoholic pancreatitis-I think his weight loss and diarrhea is likely associated with exocrine pancreatic insufficiency secondary to chronic pancreatitis and inability to secrete appropriate pancreatic enzymes for absorption. He should get a fecal elastase checked along with an IBD SGI and ESR and CRP. - Thrombocytopenia -likely secondary to splenic sequestration in the setting of cirrhosis. On his imaging he does not have significant splenomegaly. - Hepatomegaly-secondary to fatty liver disease from alcohol. He could have a significant amount ofgood liver left if he is able to get his ascites under control as he does not have splenomegaly. Particularly that is a reversible andat least a worsening portal hypertension and the complications associated with worsening portal hypertension. 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 - 500 mg sodium restriction -Further recommendation to follow Patient will undergo an upper endoscopy today. He was explained alternatives, risk and benefits including withstanding bleeding, infection, sepsis, perforation, need for surgery . He will have an ASA of 3. Visit Charges Inpatient E&M: 54491 [facility] Hosp 06/27/24 9983 [facility] Friend DO Cosigner Signature (if applicable): CC: ~ Signed [facility]05-19-2025 Progress note Author Melonie De La Rosa [facility] Note Date/Time June 26, 2024 7:44p m [facility] Medical Records Department [address] [place] [address] Progress Note - Hospitalist 06/26/24 0734 MR#: [id number] Acct: [id number] Name: ANALILIA MELENDREZ Rep #:[id number] : 1960 63 From: Melonie De La Rosa DO PCP: Marianna Wagner, VEHICLE MODIFICATION TECHNICIAN-C Status:ADM I N Location: [place] [address] Reason for Visit Reason for Visit: Abdominal pain Subjective Subjective Patient states he has not been drinking much alcohol at all recently. His last drink was on Wednesday and he said he had 1 tall boy and has always had. Patientstates he is not aware of any previous diagnosis of cirrhosis. He does have a history of significant alcohol abuse. Chronic pancreatitis noted on his CT. Objective Data Objective Data Vital Signs: Vital Signs Temp Pulse Resp BP Pulse Ox O2 Del Method 98.2 F 109 H 20 H 153/96 H 94 Room Air 06/26/24 06:05 06/26/24 06:05 06/26/24 06:05 06/26/24 06:05 06/26/24 06:05 06/26/24 06:05 Oxygen Delivery Method Room Air Weight: 74.5 kg Body Mass Index (BMI) 22.8 Intake & Output: Intake and Output for Last 24 Hours 06/24/24 06/25/24 06/26/24 23:59 23:59 23:59 Intake Total 1300 / 1300 1380 / 1380 Balance 1300 / 1300 1380 / 1380 Lab / Micro Data 06/26/24 05:25 06/26/24 05:25 Labs: Laboratory Results - last 24 hr 06/25/24 01:16: Magnesium 1.8 06/25/24 01:58: Lactic Acid 4.7 H* 06/25/24 17:17: WBC Cancelled, Corrected WBC Cancelled, RBC Cancelled, Hgb Cancelled, Hct Cancelled, MCV Cancelled, MCH Cancelled, MCHC Cancelled, RDW Std Deviation Cancelled, RDW Coeff of Kalpana Cancelled, Plt Count Cancelled, MPV Cancelled, Immature Gran % (Auto) Cancelled, Neut % (Auto) Cancelled, Lymph % (Auto) Cancelled, [place] % (Auto) Cancelled, Eos % (Auto) Cancelled, Baso % (Auto)Cancelled, Absolute Neuts (auto) Cancelled, Absolute Lymphs (auto) Cancelled, Total Counted Cancelled, Neutrophils % (Manual) Cancelled, Band Neutrophils % Cancelled, Lymphocytes % (Manual) Cancelled, Monocytes % (Manual) Cancelled, Eosinophils % (Manual) Cancelled, Basophils % (Manual) Cancelled, Metamyelocytes% Cancelled, Myelocytes % Cancelled, Promyelocytes % Cancelled, Blast Cells % Cancelled, Plasma Cell % (Manual) Cancelled, Other Cells % Cancelled, Nucleated RBC % Cancelled, Nucleated RBCs/100 WBC Cancelled, Differential Comment Cancelled, Diff Path Review Cancelled, Hypersegmented Neuts Cancelled, Atypical Lymphocytes Cancelled, Reactive Lymphocytes Cancelled, Smudge Cells Cancelled, Toxic Granulation Cancelled, Toxic Vacuolation Cancelled, Dohle Bodies Cancelled, Huyen Rods Cancelled, Platelet Estimate Cancelled, Plt Morphology Comment Cancelled, RBC Morphology Cancelled 06/25/24 17:17: RBC Morphology Cancelled, Polychromasia Cancelled, HypochromasiaCancelled, Basophilic Stippling Cancelled, Anisocytosis Cancelled, Microcytosis Cancelled, Macrocytosis Cancelled, Spherocytes Cancelled, Sickle Cells Cancelled, Target Cells Cancelled, Tear Drop Cells Cancelled, Ovalocytes Cancelled, Stomatocytes Cancelled, Whites[place]-Morrill Bodies Cancelled, [place] Cells Cancelled, Bite Cells Cancelled, Crenated Cell Cancelled, Acanthocytes (Spur) Cancelled, Rouleaux Cancelled, Schistocytes Cancelled, Sodium Cancelled, Potassium Cancelled, Chloride Cancelled, Carbon Dioxide Cancelled, Anion Gap Cancelled, BUN Cancelled, Creatinine Cancelled, Estim Creat Clear Calc Cancelled, Est GFR (MDRD) Non-Af Cancelled, BUN/Creatinine Ratio Cancelled, Glucose Cancelled, Calcium Cancelled, Total Bilirubin Cancelled, AST Cancelled, ALT Cancelled, Alkaline Phosphatase Cancelled, Total Protein Cancelled, Albumin Cancelled, Globulin Cancelled, Albumin/Globulin Ratio Cancelled, Lipase Cancelled 06/25/24 18:00: Lactic Acid 6.6 H* 06/25/24 18:07: WBC 4.8, RBC 2.80 L, Hgb 10.1 L, Hct 29.8 L, MCV 106.4 H, MCH 36.1 H, MCHC 33.9, RDW Std Deviation 63.9 H, RDW Coeff of Kalpana 16.2 H, Plt Count 124 L, MPV 11.8, Immature Gran % (Auto) 0.200, Neut % (Auto) 65.3, Lymph % (Auto) 22.1, [place] % (Auto) 11.6 H, Eos % (Auto) 0.2, Baso % (Auto) 0.6, AbsoluteNeuts (auto) 3.1, Absolute Lymphs (auto) 1.05, Nucleated RBC % 0, Sodium 136, Potassium 2.2 L* 06/25/24 18:07: Potassium 2.1 L*, Chloride 95 L, Carbon Dioxide 24.2, Anion Gap 16 H, BUN 8, Creatinine 1.27 H, Estim Creat Clear Calc 65.06, Est GFR (MDRD) Non-Af 64, BUN/Creatinine Ratio 6.5 L, Glucose 398 H, Hemoglobin A1c 6.6 H, Calcium 7.7, Magnesium 1.8, Total Bilirubin 0.46, AST 62 H, ALT 32, Alkaline Phosphatase 125, Total Protein 5.0 L, Albumin 2.5 L, Globulin 2.5, Albumin/Globulin Ratio 1.0, Lipase 6 L, b-Hydroxybutyric mmol/L 0.1 06/25/24 19:17: POC Glucose 348 H 06/25/24 19:23: Urine Color Yellow, Urine Clarity Clear, Urine pH 7.0, Ur Specific [place] 1.010, Urine Protein 15 H, Urine Glucose (UA) 1000 H, Urine Ketones Negative, Urine Occult Blood 50 H, Urine Nitrite Negative, Urine Bilirubin Negative, Urine Urobilinogen Normal, Ur Leukocyte Esterase Negative, Urine RBC 0 SEEN, Urine WBC 0 SEEN, Ur Squamous Epith Cells 0 SEEN, Urine Bacteria 0 SEEN, Urine Mucus 0 SEEN 06/25/24 20:30: POC Glucose 277 H 06/25/24 22:19: Lactic Acid 4.8 H*, Ethyl Alcohol < 10.1 06/26/24 02:12: POC Glucose 197 H 06/26/24 05:25: WBC 4.8, RBC 2.56 L, Hgb 9.3 L, Hct 27.1 L, MCV 105.9 H, MCH 36.3 H, MCHC 34.3, RDW Std Deviation 63.6 H, RDW Coeff of Kalpana 16.3 H, Plt Count 100 L, MPV 11.6, Immature Gran % (Auto) 0.200, Neut % (Auto) 68.4, Lymph % (Auto) 18.4 L, [place] % (Auto) 11.8 H, Eos % (Auto) 0.4, Baso % (Auto) 0.8, Absolute Neuts (auto) 3.3, Absolute Lymphs (auto) 0.89, Nucleated RBC % 0, Phosphorus 2.3 L, Triglycerides 89, Cholesterol 74, LDL Cholesterol, Calc 24, VLDL Cholesterol 18, HDL Cholesterol 32 L, Cholesterol/HDL Ratio 2.29, TSH 1.740 06/26/24 05:58: POC Glucose 172 H Micro: Microbiology 06/25/24 22:38 Stool Stool Lactoferrin - Final 06/25/24 22:38 Stool Enteric Bacteriology - Final 06/25/24 22:38 Stool Clostridioides difficile (PCR) - Final ABG Data ABG results: ABG 06/25/24 19:23 Specimen Type ROSA Sample Site Not entered VBG pH 7.43 H VBG pO2 29 VBG HCO3 29 H VBG Total CO2 30 VBG O2 Sat (Calc) 58 VBG Base Excess 4 H POC Mix VBG pCO2 Pt Tmp 42.7 O2 Delivery Device Room Air Radiography Diagnostic Testing: Radiology Impression Abdomen/Pelvis CT 06/25/24 16:43 IMPRESSION: 1. Diffuse small bowel and colonic wall thickening, likely secondary to ascites. 2. Large abdominopelvic ascites. 3. Hepatomegaly and diffuse steatosis. OVERALL FINAL ASSESSMENT: . LI-RADS is not meant to be used in patients <18 years or patients with cirrhosisdue to congenital hepatic fibrosis or due to vascular disorders, because these patients have a lower chance of developing HCC. Reading Location: [facility] Physical Exam Const alert, oriented x3, no apparent distress and average body habitus; Negative for healthy appearing or well nourished Constitutional Narrative: Upper middle-aged, white male, sitting up in bed, does not appear acutely ill but does look chronically ill, appears older than stated age, very pleasant, nursing at bedside HEENT head/scalp atraumatic and moist oral mucous membranes HEENT Narrative: Dentition is poor, Mallampati 2, no thrush Head and Scalp: normocephalic Eyes conjunctivae normal Eyes Narrative: No scleral icterus Resp normal respiratory effort, no retractions, no use of accessory muscles and clearto auscultation bilaterally Auscultation: Negative for rales, rhonchi or wheezes Cardio regular rate, regular rhythm, S1 normal heart sound, S2 normal heart sound, no murmurs, no rub, no gallops and no clicks GI normal to inspection, nondistended, normoactive bowel sounds and soft to palpation GI Narrative: Mild diffuse tenderness, positive fluid wave Extremity no clubbing, cyanosis or edema Extremity Narrative: Pedal and radial pulses are 2+ Neuro oriented x3, moves all extremities and no focal motor deficits Neuro Narrative: No asterixis Speech: speech normal Psych affect normal Psych Narrative: Very pleasant, interacts appropriately Assessment & Plan Assessment/Plan (1) Ascites due to alcoholic cirrhosis: (2) Lactic acidosis: (3) Chronic diarrhea: (4) Chronic pancreatitis: (5) Thrombocytopenia: PLAN: Plan Diarrhea/abdominal pain - Like related to chronic alcoholic pancreatitis - Start Creon - Fecal elastase, IBD, SGI, ESR, and CRP are pending per GI - Stool studies were negative for infectious etiology - Discontinue metronidazole Decompensated alcoholic liver cirrhosis/hepatomegaly - Potentially has some functioning liver - no marked cirrhosis type morphology noted on imaging - No significant splenomegaly -Paracentesis pending -Add fluid studies -Highly doubt SBP - Treatment per gastroenterology Thrombocytopenia - Appears to be chronic - Highly suspect related to liver disease but could be bone marrow suppression from alcohol use - Per discussion patient is not currently using significant abe of alcohol -Repeat lab in a.m. Hypokalemia - Aggressive replacement - Check a.m. magnesium level Hypophosphatemia - Phosphorus ordered via K-Phos - Recheck lab in a.m. Constipation - Start MiraLAX p.o. twice daily Lactic acidosis - Likely related to the above - Has trended down with IV fluids - Discontinue IV fluids for now - No further trend required Chronic macrocytic anemia - Like related liver disease from alcohol use - Counts are stable with no signs of acute GI bleeding - Outpatient follow-up with GI after discharge DM-2 - Continue basal insulin 10 units daily - Continue SSI - Hold home oral agents - Carb controlled diet - Accu-Cheks as ordered CAD/essential hypertension/hyperlipidemia - Continue home hydralazine - Continue home metoprolol - Continue home Aldactone - Continue home Lasix - As needed hydralazine to continue - Continue atorvastatin Diabetic neuropathy - Start home gabapentin GERD -discontinue IV Protonix and start home dose History of alcohol abuse -patient without any current significant alcohol use -discontinue phenobarbital - okay to continue p.o. thiamine and folate History of aortic valve replacement - Bioprosthetic valve in 2017 - No current murmur History of sick sinus syndrome - Continue home metoprolol - Previous pacemaker History of AAA/thoracic aortic aneurysm - Had thoracic dissection and was treated at [facility] History of heroin abuse - Remote -patient states he has been clean for approximately 10 years Tobacco abuse - Encouraged cessation - nicotine patch replacement available DVT prophylaxis - Platelet count is 100,000 - Start Lovenox 40 subcu daily CODE STATUS - Full code Charges/Coding Visit Charges Inpatient E&M: 07572 Subs Hosp L2 06/26/241943 <Electronically signed by Melonie De La Rosa DO> Cosigner Signature (if applicable): CC: ~ Signed [facility] Work Phone: [phone]) 467-381205-19-2025 Consult note Author Antony Friend [facility] Note Date/Time June 26, 2024 6:15p m [facility] Medical Records Department [address] [place] [address] Consultation - GI 06/26/24 1758 MR#: [id number] Acct: [id number] Name: ANALILIA MELENDREZ Rep #:[id number] : 1960 63 From: Antony Espitia DO PCP: ALAN Wilde Status:ADM I N Location: [place] [address] HPI Consult Data Date of Consult: 06/26/24 HPI Narrative Reason for Consultation: Possible alcoholic cirrhosis HPI Narrative: ANALILIA MELENDREZ, is a 63 M who presents with chief complaints of abdominal pain,distention, constipation. He has a complicated past medical history of DM, aortic valve replacement, HTN, chronic alcohol abuse who presents for evaluationof abdominal pain, distention, constipation. He states that he has chronic history of abdominal pain and is why he drinks alcohol. He has been at our institution before but I have never seen him on consultation. He stated that for the past several months he has been having diarrhea in which he has had outpatient workup including EGD and colonoscopy in May. He had a poor prep during his colonoscopy and only thing that was noted was nonbleeding internal hemorrhoids. On his upper endoscopy was not noted whether he had any sign of portal gastropathy, esophageal varices, gastric varices or duodenal varices. He states that there was no acute findings. Patient states 4 days ago his diarrhea stopped and he became constipated. He complains of diffuse abdominal pain and distention. He also complains of decreased urine output and foul-smelling urine. In the ER he was noted to have Critical Hypokalemia of 2.1 mmol/L present on admission complicated by Lactic Acidosis of 6.6 mmol/Lpossibly secondary to metformin. CT scan of the abdomen and pelvis with IV contrast that revealed diffuse small bowel and colonic wall thickening likely secondary to ascites with large abdominal pelvic ascites and hepatomegaly with diffuse steatosis Today he underwent large-volume paracentesis and had 2.2 L of serosanguineous fluid removed. Analysis of the fluid was not done so a SAG gradient could not be calculated. [facility] Medical History MALIK (acute kidney injury) Seizures Alcoholic hepatitis Chronic pancreatitis Gastric wall thickening Alcohol dependence Abdominal ascites Anxiety Diabetes Pancreatitis Myocardial infarct Pacemaker AAA (abdominal aortic aneurysm) Admitted to alcohol detoxification center Alcohol abuse Hx of hypercholesterolemia History of diabetes mellitus Alcohol dependence Substance abuse Smoker Alcoholism Right bundle branch block (RBBB) Non-sustained ventricular tachycardia Thoracic aortic aneurysm SVT (supraventricular tachycardia) Ascending aortic dissection (~2005) Pure hypercholesterolemia Adrenal nodule Hiatal hernia Left carotid bruit Cardiac pacemaker in situ (~06/2016) Essential hypertension Pacemaker Sick sinus syndrome Tobacco use HTN (hypertension) Diabetes mellitus, type II Home Medications ?Medication ?Instructions ?Recorded ?Last Taken ?Type atorvastatin 10 mg tablet 10 mg PO DAILY CHOLESTEROL 0 10/17/20 04/19/23 History hydralazine 25 mg tablet 25 mg PO TID BP 10/17/2001/01 History dapagliflozin propanediol 10 mg 10 mg PO DAILY DIABETE S 09/30/21 04/19/23 History tablet (Farxiga) Held on 05/20/23. Instructions: Hold it because of MALIK. multivitamin 1 tab PO DAILY SUPPLEMENT 11/10/21 History gabapentin 300 mg capsule 300 mg PO DAILY NEUROPATHY 1 Unknown History insulin glargine 100 unit/mL (3 10 unit subcut 1200 DI ABETES 11/14/22 04/19/23 History mL) subcutaneous pen (Lantus Solostar U-100 Insulin) metformin 500 mg tablet,extended 500 mg PO BID DIABETE S 11/15/22 04/19/23 History release 24 hr Held on 05/20/23. Instructions: Hold at least 1 week . Discontinue if creatinine clearance less than 30 mill per minute L.acidophil,salivari-Bifido 2 cap PO BID #0 caps 05/19 Unknown Rx bifidum-Strep thermoph 175 mg capsule dicyclomine 10 mg capsule 20 mg (2 x 10 mg) PO Q6H PRN PRN 05/20/23 Unknown Rx abdominal discomfort #0 caps folic acid 1 mg tablet 1 mg PO DAILY@0800 #0 tabs 0 05/20/23 Unknown Rx furosemide 40 mg tablet 40 mg PO DAILY #30 tabs 05/09 03/03 Unknown Rx insulin lispro 100 unit/mL See Protocol subcut ACHS #0 mL 05/20/23 Unknown Rx subcutaneous pen (Humalog KwikPen (U-100) Insulin) metoprolol succinate 25 mg 25 mg PO BID 30 days #60 ta bs 05/20/23 Unknown Rx tablet,extended release 24 hr spironolactone 25 mg tablet 12.5 mg (1/2 x 25 mg) PO D AILY #30 05/20/23 Unknown Rx tabs thiamine HCl (vitamin B1) 100 mg 100 mg PO DAILYCM #0 tabs 05/20/23 Unknown Rx tablet (Vitamin B-1) pantoprazole 40 mg tablet,delayed 40 mg PO BID #60 tab s 06/27/23 Unknown Rx release Allergy/AdvReac Type Severity Reaction Status Date / Time No Known Allergies Allergy Verified 05/09/23 13:37 Family History Father CAD (coronary artery disease) Mother Dementia Surgical History H/O cardiac catheterization History of aortic aneurysm repair (~2017) History of cataract surgery History of hernia repair History of aortic valve replacement with bioprosthetic valve (~2017) H/O aortic valve replacement Social History household members: family housing: house Smoking Status: Current every day smoker tobacco type: cigarettes alcohol intake: current alcohol intake frequency: 0-2 drinks per day details: Reports currently ~ 2 tall boys daily. substance use type: former substance user caffeine: Yes Type: coffee Number of servings: 3 ROS ROS Narrative Review of Systems: Constitutional: Patient denies fever or chills. Eyes: Patient denies changes in vision or discharge from eyes. ENT: Patient denies runny nose, sore throat or ear pain. Resp: Patient denies shortness of breath or cough. CV: Patient denies chest pain, palpitations, heart racing or lower extremity edema. GI: Patient admits to diffuse abdominal pain and distention with ascites and chronic diarrhea with nausea but he denies vomiting. : Patient admits to decreased urine output with foul-smelling urine. MSK: Patient denies arthralgias or myalgias. Skin: Patient denies rash, abscess, wounds or jaundice. Psych: Patient denies symptoms of uncontrolled depression or anxiety. Neuro: Patient denies headache, paresthesias or focal neurologic deficits. Allergy: Patient denies lip swelling, tongue swelling or urticaria. Hematology: Patient denies easy bleeding or easy bruisability. Endocrinology: Patient denies polyuria, polydipsia, polyphagia or heat/cold intolerance. 14 point ROS otherwise negative save for positives noted above in HPI. Physical Exam Const alert, oriented x3, no apparent distress and average body habitus Constitutional Narrative: Patient appears chronically ill and older than his stated age. General Appearance: cooperative HEENT normocephalic, head/scalp atraumatic and hearing grossly normal bilaterally Eyes PERRL, EOMs intact bilaterally and conjunctivae normal Neck no lymphadenopathy, supple and no JVD Resp normal respiratory effort, no retractions, no use of accessory muscles and clearto auscultation bilaterally Cardio regular rate and regular rhythm GI GI Narrative: Patient's abdomen is distended with positive fluid wave and tender to palpation diffusely with bruising in abdomen likely from insulin injections. There is no rebound or guarding. Extremity normal to inspection, full ROM and no clubbing, cyanosis or edema Skin Skin Narrative: Patient has bruising over abdomen likely from recent insulin injections. Neuro oriented x3, CN's II-XII intact bilaterally, moves all extremities and no focal motor deficits Sensorium / Orientation: awake, alert, oriented to person, oriented to place andoriented to time Speech: speech normal Psych affect normal Lab / Micro Data 06/26/24 05:25 06/26/24 05:25 Labs: Laboratory Results - last 24 hr 06/25/24 01:16: Magnesium 1.8 06/25/24 01:58: Lactic Acid 4.7 H* 06/25/24 18:00: Lactic Acid 6.6 H* 06/25/24 18:07: WBC 4.8, RBC 2.80 L, Hgb 10.1 L, Hct 29.8 L, MCV 106.4 H, MCH 36.1 H, MCHC 33.9, RDW Std Deviation 63.9 H, RDW Coeff of Kalpana 16.2 H, Plt Count 124 L, MPV 11.8, Immature Gran % (Auto) 0.200, Neut % (Auto) 65.3, Lymph % (Auto) 22.1, [place] % (Auto) 11.6 H, Eos % (Auto) 0.2, Baso % (Auto) 0.6, AbsoluteNeuts (auto) 3.1, Absolute Lymphs (auto) 1.05, Nucleated RBC % 0, Sodium 136, Potassium 2.2 L* 06/25/24 18:07: Potassium 2.1 L*, Chloride 95 L, Carbon Dioxide 24.2, Anion Gap 16 H, BUN 8, Creatinine 1.27 H, Estim Creat Clear Calc 65.06, Est GFR (MDRD) Non-Af 64, BUN/Creatinine Ratio 6.5 L, Glucose 398 H, Hemoglobin A1c 6.6 H, Calcium 7.7, Magnesium 1.8, Total Bilirubin 0.46, AST 62 H, ALT 32, Alkaline Phosphatase 125, Total Protein 5.0 L, Albumin 2.5 L, Globulin 2.5, Albumin/Globulin Ratio 1.0, Lipase 6 L, b-Hydroxybutyric mmol/L 0.1 06/25/24 19:17: POC Glucose 348 H 06/25/24 19:23: Urine Color Yellow, Urine Clarity Clear, Urine pH 7.0, Ur Specific [place] 1.010, Urine Protein 15 H, Urine Glucose (UA) 1000 H, Urine Ketones Negative, Urine Occult Blood 50 H, Urine Nitrite Negative, Urine Bilirubin Negative, Urine Urobilinogen Normal, Ur Leukocyte Esterase Negative, Urine RBC 0 SEEN, Urine WBC 0 SEEN, Ur Squamous Epith Cells 0 SEEN, Urine Bacteria 0 SEEN, Urine Mucus 0 SEEN 06/25/24 20:30: POC Glucose 277 H 06/25/24 22:19: Lactic Acid 4.8 H*, Ethyl Alcohol < 10.1 06/26/24 02:12: POC Glucose 197 H 06/26/24 05:25: WBC 4.8, RBC 2.56 L, Hgb 9.3 L, Hct 27.1 L, MCV 105.9 H, MCH 36.3 H, MCHC 34.3, RDW Std Deviation 63.6 H, RDW Coeff of [place] 16.3 H, Plt Count 100 L, MPV 11.6, Immature Gran % (Auto) 0.200, Neut % (Auto) 68.4, Lymph % (Auto) 18.4 L, [place] % (Auto) 11.8 H, Eos % (Auto) 0.4, Baso % (Auto) 0.8, Absolute Neuts (auto) 3.3, Absolute Lymphs (auto) 0.89, Nucleated RBC % 0, Sodium 142, Potassium 2.7 L*, Chloride 107, Carbon Dioxide 24.9, Anion Gap 10, BUN 6, Creatinine 0.97, Estim Creat Clear Calc 84.27, Est GFR (MDRD) Non-Af 88, BUN/Creatinine Ratio 6.5 L, Glucose 180 H, Calcium 7.1 L, Phosphorus 2.3 L, Total Bilirubin 0.42, AST 49 H, ALT 26, Alkaline Phosphatase 102, Total Protein 4.3 L, Albumin 2.1 L, Globulin 2.1 L, Albumin/Globulin Ratio 1.0, Triglycerides 89, Cholesterol 74, LDL Cholesterol, Calc 24, VLDL Cholesterol 18, HDL Cholesterol 32 L, Cholesterol/HDL Ratio 2.29, TSH 1.740 06/26/24 05:58: POC Glucose 172 H 06/26/24 07:05: Lactic Acid 3.1 H* 06/26/24 12:08: POC Glucose 138 H 06/26/24 16:55: POC Glucose 201 H Micro: Microbiology 06/25/24 22:38 Stool Stool Lactoferrin - Final 06/25/24 22:38 Stool Enteric Bacteriology - Final 06/25/24 22:38 Stool Clostridioides difficile (PCR) - Final ABG Data ABG results: ABG 06/25/24 19:23 Specimen Type ROSA Sample Site Not entered VBG pH 7.43 H VBG pO2 29 VBG HCO3 29 H VBG Total CO2 30 VBG O2 Sat (Calc) 58 VBG Base Excess 4 H POC Mix VBG pCO2 Pt Tmp 42.7 O2 Delivery Device Room Air Imaging Radiology Impression Abdomen/Pelvis CT 06/25/24 16:43 IMPRESSION: 1. Diffuse small bowel and colonic wall thickening, likely secondary to ascites. 2. Large abdominopelvic ascites. 3. Hepatomegaly and diffuse steatosis. OVERALL FINAL ASSESSMENT: . LI-RADS is not meant to be used in patients <18 years or patients with cirrhosisdue to congenital hepatic fibrosis or due to vascular disorders, because these patients have a lower chance of developing HCC. [facility] Par[facility] Ultrasound 06/26/24 06:00 IMPRESSION: Successful paracentesis with removal of 2050 mL of light colored fluid. Reading Location: [facility] Assessment & Plan Assessment/Plan (1) Chronic alcohol abuse: (2) Hypokalemia: (3) Chronic diarrhea: (4) Lactic acidosis: (5) Adverse drug reaction: QUALIFIERS: Encounter type: initial encounter Qualified Code(s): T50.905A - Adverse effect of unspecified drugs, medicaments and biological substances, initial encounter (6) Ascites due to alcoholic cirrhosis: (7) Macrocytosis associated with alcohol: PLAN: Plan 63-year-old with past medical history of chronic alcohol abuse complicated by macrocytosis, thrombocytopenia, coagulopathy, protein calorie malnutrition, chronic pancreatitis as seen on imaging and cirrhosis with new onset ascites. His current MELD is 20 and he has a Child-Ndiaye class B-C. A?MELD score of 20 indicates a 19.6% 3-month mortality rate, while a Child- Pughclass B-C indicates a?30%-82% perioperative mortality rate depending on the specific class.?These scores are used to assess the severity of liver disease and predict mortality risk in patients with cirrhosis.? - Decompensated alcoholic cirrhosis with ascites-status post large-volume paracentesis. The patient says that he has not had a drink in a long time. Hislabs from last year showed that he was viral hepatitis A, B and C negative. He will need to be vaccinated for hepatitis AMB as an outpatient. He also will need to be checked for HIV. He will need to be started on diuretics. He is noted as an outpatient to be on furosemide 40 mg a day and spironolactone 12.5 mg a day. His goal should be 80 mg of furosemide and 100 mg 2 200 mg of spironolactone a day. This depends on his kidney function. He should be screened for esophageal varices with an upper endoscopy. He should also get a protein electrophoresis as there is associated with a monoclonal gammopathy withalcoholic cirrhosis. - Chronic alcoholic pancreatitis-I think his weight loss and diarrhea is likely associated with exocrine pancreatic insufficiency secondary to chronic pancreatitis and inability to secrete appropriate pancreatic enzymes for absorption. He should get a fecal elastase checked along with an IBD SGI and ESR and CRP. - Thrombocytopenia -likely secondary to splenic sequestration in the setting of cirrhosis. On his imaging he does not have significant splenomegaly. - Hepatomegaly-secondary to fatty liver disease from alcohol. He could have a significant amount of good liver left if he is able to get his ascites under control as he does not have splenomegaly. Particularly that is a reversible andat least a worsening portal hypertension and the complications associated with worsening portal hypertension. 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 - 500 mg sodium restriction -Further recommendation to follow 1. Critical Hypokalemia of 2.1 mmol/L present on admission in the setting of Chronic Diarrhea - Give supplemental IV and oral KCl and then recheck level in the AM. Check stool studies in case of infectious etiology and place under enteric precautions plus start empiric IV metronidazole in case of Clostridium difficile colitis. Finally, we will consult gastroenterology for further recommendations with help appreciated in advance. 2. Lactic Acidosis of 6.6 mmol/L present on admission suspected to be due at least in part to Adverse Drug Reaction to metformin complicating #1 - Volume resuscitate and serialize lactate to follow trend with repeat lactic acid down to 4.8 mmol/L after initial round of treatment. 3. Chronic EtOH Abuse with large abdominal pelvic ascites on CT this admission in addition to Macrocytosis with MCV of 106.4 fL present on admission compounding #1 & #2 - EtOH cessation will be strongly encouraged. Start Phenobarbital IV to prevent impending EtOH withdrawal. Check B12 and folate levels with macrocytosis. Give MVI IV while patient NPO. Finally, we will set up diagnostic and therapeutic paracentesis at interventional radiology in a.m. with help appreciated in advance. Check EtOH level. 4. Moderate Thrombocytopenia of 124K present on admission suspected to be due to marrow-suppression from EtOH adding to the medical complexity of #1 - #3 - Check CBC daily to follow trend. 5. Chronic diarrhea which includes an outpatient workup including EGD and colonoscopy in March of this year done by Dr. Vazquez at [facility] for indication of iron deficiency anemia, with patient stating there were no acute findings in the setting of poor colon prep and nonbleeding internal hemorrhoids with repeat colonoscopy recommended in 1 year and EGD revealing erythematous mucosa in the atrium which was biopsied with an irregular Z-line that was biopsied adding to the burden of disease outlined from #1 - #4 - Noted. 6. DM-2; on insulin glargine 10 units sq daily, insulin lispro AC/HS, dapagliflozin and metformin plus diabetic neuropathy; on gabapentin - Keep NPO for now until GI evaluation. Check FSBS q. AC/HS plus lowest-intensity SSI. 7. Chronic Tobacco Abuse - Tobacco cessation will be strongly encouraged with Nicotine patch however to control cravings. 8. Essential hypertension; on metoprolol twice daily, hydralazine 3 times daily, furosemide and spironolactone - Hold home regimen until volume is resuscitated and give prn hydralazine IV for systolic blood pressure > 160 mmHg. 9. Hyperlipidemia; on atorvastatin - Restart statin when patient is cleared fororal intake. Check Lipid Profile. 10. Overweight; with a BMI of 26.6 this admission - Weight loss will be recommended. Check TSH. 11. History of heroin abuse; with patient denying abuse for ~10 years - Check UDS. Apparently no UDS was checked prior to patient being treated with IV morphine in ER. 12. CAD; s/p AZ - Noted. 13. History of mechanical aortic valve replacement (2014) followed by bioprosthetic aortic valve replacement (~2017) - Stable. 14. History of SSS; s/p PPM (2017) - Noted. 15. History of RBBB - Noted. 16. History of NSVT - Noted with no signs of recurrence at this time. 17. History of AAA - Noted. 18. History of thoracic aortic aneurysm with dissection (~2005 & ~2016 at [facility]) - Noted. 19. History of alcoholic hepatitis - Noted. 20. History of chronic pancreatitis - Noted with normal Lipase of 6 present on admission and no signs of pancreatic inflammation on CT this admission. 21. History of seizures; likely due to EtOH withdrawal - Noted. 22. History of MALIK - Noted. 23. GERD with hiatal hernia; on pantoprazole twice daily - Resume pantoprazole IV while NPO. 24. History of hernia; s/p repair - Noted. 25. Generalized anxiety - Give low-dose prn IV lorazepam for breakthrough symptoms. 26. DVT prophylaxis - SCD's only with impending paracentesis and endoscopy. Total time: Approximately (but not less than) 75 minutes. Charges/Coding Visit Charges Inpatient E&M: 52468 Init Hosp L3 06/26/241814 <Electronically signed by Antony Espitia DO> Cosigner Signature (if applicable): CC: ALAN Wagner; Dr. Rolan Romero DO~ Signed [facility] Work Phone: [phone] 226-149705-19-2025 Progress note [facility] Medical Records Department [address] [place] [address] Progress Note - Hospitalist 06/26/24 0734 MR#: [id number] Acct: [id number] Name: ANALILIA MELENDREZ Rep #:[id number] : 1960 63 From: Melonie De La Rosa DO PCP: ALAN Wilde Status:ADM I N Location: [place] [address] Reason for Visit Reason for Visit: Abdominal pain Subjective Subjective Patient states he has not been drinking much alcohol at all recently. His last drink was on Wednesday and he said he had 1 tall boy and has always had. Patientstates he is not aware of any previous diagnosis of cirrhosis. He does have a history of significant alcohol abuse. Chronic pancreatitis noted on his CT. Objective Data Objective Data Vital Signs: Vital Signs Temp Pulse Resp BP Pulse Ox O2 Del Method 98.2 F 109 H 20 H 153/96 H 94 Room Air 06/26/24 06:05 06/26/24 06:05 06/26/24 06:05 06/26/24 06:05 06/26/24 06:05 06/26/24 06:05 Oxygen Delivery Method Room Air Weight: 74.5 kg Body Mass Index (BMI) 22.8 Intake & Output: Intake and Output for Last 24 Hours 06/24/24 06/25/24 06/26/24 23:59 23:59 23:59 Intake Total 1300 / 1300 1380 / 1380 Balance 1300 / 1300 1380 / 1380 Lab / Micro Data 06/26/24 05:25 06/26/24 05:25 Labs: Laboratory Results - last 24 hr 06/25/24 01:16: Magnesium 1.8 06/25/24 01:58: Lactic Acid 4.7 H* 06/25/24 17:17: WBC Cancelled, Corrected WBC Cancelled, RBC Cancelled, Hgb Cancelled, Hct Cancelled, MCV Cancelled, MCH Cancelled, MCHC Cancelled, RDW Std Deviation Cancelled, RDW Coeff of Kalpana Cancelled, Plt Count Cancelled, MPV Cancelled, Immature Gran % (Auto) Cancelled, Neut % (Auto) Cancelled, Lymph % (Auto) Cancelled, [place] % (Auto) Cancelled, Eos % (Auto) Cancelled, Baso % (Auto)Cancelled, Absolute Neuts (auto) Cancelled, Absolute Lymphs (auto) Cancelled, Total Counted Cancelled, Neutrophils % (Manual) Cancelled, Band Neutrophils % Cancelled, Lymphocytes % (Manual) Cancelled, Monocytes %(Manual) Cancelled, Eosinophils % (Manual) Cancelled, Basophils % (Manual) Cancelled, Metamyelocytes% Cancelled, Myelocytes % Cancelled, Promyelocytes % Cancelled, Blast Cells % Cancelled, Plasma Cell % (Manual) Cancelled, Other Cells % Cancelled, Nucleated RBC % Cancelled, Nucleated RBCs/100 WBC Cancelled, Differential Comment Cancelled, Diff Path Review Cancelled, Hypersegmented Neuts Cancelled, Atypical Lymphocytes Cancelled, Reactive Lymphocytes Cancelled, Smudge Cells Cancelled, Toxic Granulation Cancelled, Toxic Vacuolation Cancelled, Dohle Bodies Cancelled, Huyen Rods Cancelled, Platelet Estimate Cancelled, Plt Morphology Comment Cancelled, RBC Morphology Cancelled 06/25/24 17:17: RBC Morphology Cancelled, Polychromasia Cancelled, HypochromasiaCancelled, Basophilic Stippling Cancelled, Anisocytosis Cancelled, Microcytosis Cancelled, Macrocytosis Cancelled, Spherocytes Cancelled, Sickle Cells Cancelled, Target Cells Cancelled, Tear Drop Cells Cancelled, Ovalocytes Cancelled, Stomatocytes Cancelled, [place]ites[place]-Morrill Bodies Cancelled, [place] Cells Cancelled, Bite Cells Cancelled, Crenated Cell Cancelled, Acanthocytes (Spur) Cancelled, Rouleaux Cancelled, Schistocytes Cancelled, Sodium Cancelled, Potassium Cancelled, Chloride Cancelled, Carbon Dioxide Cancelled, Anion Gap Cancelled, BUN Cancelled, Creatinine Cancelled, Estim Creat Clear Calc Cancelled, Est GFR (MDRD) Non-Af Cancelled, BUN/Creatinine Ratio Cancelled, Glucose Cancelled, Calcium Cancelled, TotalBilirubin Cancelled, AST Cancelled, ALT Cancelled, Alkaline Phosphatase Cancelled, Total Protein Cancelled, Albumin Cancelled, Globulin Cancelled, Albumin/Globulin Ratio Cancelled, Lipase Cancelled 06/25/24 18:00: Lactic Acid 6.6 H* 06/25/24 18:07: WBC 4.8, RBC 2.80 L, Hgb 10.1 L, Hct 29.8 L, MCV 106.4 H, MCH 36.1 H, MCHC 33.9, RDW Std Deviation 63.9 H, RDW Coeff of Kalpana 16.2 H, Plt Count 124 L, MPV 11.8, Immature Gran % (Auto) 0.200, Neut % (Auto) 65.3, Lymph % (Auto) 22.1, [place] % (Auto) 11.6 H, Eos % (Auto) 0.2, Baso % (Auto)0.6, AbsoluteNeuts (auto) 3.1, Absolute Lymphs (auto) 1.05, Nucleated RBC % 0, Sodium 136, Potassium 2.2 L* 06/25/24 18:07: Potassium 2.1 L*, Chloride 95 L, Carbon Dioxide 24.2, Anion Gap 16 H, BUN 8, Creatinine 1.27 H, Estim Creat Clear Calc 65.06, Est GFR (MDRD) Non-Af 64, BUN/Creatinine Ratio 6.5 L, Glucose 398 H, Hemoglobin A1c 6.6 H, Calcium 7.7, Magnesium 1.8, Total Bilirubin 0.46, AST 62 H, ALT 32, Alkaline Phosphatase 125, Total Protein 5.0 L, Albumin 2.5 L, Globulin 2.5, Albumin/Globulin Ratio1.0, Lipase 6 L, b-Hydroxybutyric mmol/L 0.1 06/25/24 19:17: POC Glucose 348 H 06/25/24 19:23: Urine Color Yellow, Urine Clarity Clear, Urine pH 7.0, Ur Specific [place] 1.010, Urine Protein 15 H, Urine Glucose (UA) 1000 H, Urine Ketones Negative, Urine Occult Blood 50 H, UrineNitrite Negative, Urine Bilirubin Negative, Urine Urobilinogen Normal, Ur Leukocyte Esterase Negative, Urine RBC 0 SEEN, Urine WBC 0 SEEN, Ur Squamous Epith Cells 0 SEEN, Urine Bacteria 0 SEEN, UrineMucus 0 SEEN 06/25/24 20:30: POC Glucose 277 H 06/25/24 22:19: Lactic Acid 4.8 H*, Ethyl Alcohol < 10.1 06/26/24 02:12: POC Glucose 197 H 06/26/24 05:25: WBC 4.8, RBC 2.56 L, Hgb 9.3 L, Hct 27.1 L, MCV 105.9 H, MCH 36.3 H, MCHC 34.3, RDWStd Deviation 63.6 H, RDW Coeff of Kalpana 16.3 H, Plt Count 100 L, MPV 11.6, Immature Gran % (Auto) 0.200, Neut % (Auto) 68.4, Lymph % (Auto) 18.4 L, [place] % (Auto) 11.8 H, Eos % (Auto) 0.4, Baso % (Auto) 0.8, Absolute Neuts (auto) 3.3, Absolute Lymphs (auto) 0.89, Nucleated RBC % 0, Phosphorus 2.3 L, Triglycerides 89, Cholesterol 74, LDL Cholesterol, Calc 24, VLDL Cholesterol 18, HDL Cholesterol 32 L, Cholesterol/HDL Ratio 2.29, TSH 1.740 06/26/24 05:58: POC Glucose 172 H Micro: Microbiology 06/25/24 22:38 Stool Stool Lactoferrin - Final 06/25/24 22:38 Stool Enteric Bacteriology - Final 06/25/24 22:38 Stool Clostridioides difficile (PCR) - Final ABG Data ABG results: ABG 06/25/24 19:23 Specimen Type ROSA Sample Site Not entered VBG pH 7.43 H VBG pO2 29 VBG HCO3 29 H VBG Total CO2 30 VBG O2 Sat (Calc) 58 VBG Base Excess 4 H POC Mix VBG pCO2 Pt Tmp 42.7 O2 Delivery Device Room Air Radiography Diagnostic Testing: Radiology Impression Abdomen/Pelvis CT 06/25/24 16:43 IMPRESSION: 1. Diffuse small bowel and colonic wall thickening, likely secondary to ascites. 2. Large abdominopelvic ascites. 3. Hepatomegaly and diffuse steatosis. OVERALL FINAL ASSESSMENT: . LI-RADS is not meant to be used in patients <18 years or patients with cirrhosisdue to congenital hepatic fibrosis or due to vascular disorders, because these patients have a lower chance of developing HCC. Reading Location: [facility] Physical Exam Const alert, oriented x3, no apparent distress and average body habitus; Negative for healthy appearing or well nourished Constitutional Narrative: Upper middle-aged, white male, sitting up in bed, does not appear acutely ill but does look chronically ill, appears older than stated age, very pleasant, nursing at bedside HEENT head/scalp atraumatic and moist oral mucous membranes HEENT Narrative: Dentition is poor, Mallampati 2, no thrush Head and Scalp: normocephalic Eyes conjunctivae normal Eyes Narrative: No scleral icterus Resp normal respiratory effort, no retractions, no use of accessory muscles and clearto auscultation bilaterally Auscultation: Negative for rales, rhonchi or wheezes Cardio regular rate, regular rhythm, S1 normal heart sound, S2 normal heart sound, no murmurs, no rub, no gallops and no clicks GI normal to inspection, nondistended, normoactive bowel sounds and soft to palpation GI Narrative: Mild diffuse tenderness, positive fluid wave Extremity no clubbing, cyanosis or edema Extremity Narrative: Pedal and radial pulses are 2+ Neuro oriented x3, moves all extremities and no focal motor deficits Neuro Narrative: No asterixis Speech: speech normal Psych affect normal Psych Narrative: Very pleasant, interacts appropriately Assessment & Plan Assessment/Plan (1) Ascites due to alcoholic cirrhosis: (2) Lactic acidosis: (3) Chronic diarrhea: (4) Chronic pancreatitis: (5) Thrombocytopenia: PLAN: Plan Diarrhea/abdominal pain - Like related to chronic alcoholic pancreatitis - Start Creon - Fecal elastase, IBD, SGI, ESR, and CRP are pending per GI - Stool studies were negative for infectious etiology - Discontinue metronidazole Decompensated alcoholic liver cirrhosis/hepatomegaly - Potentially has some functioning liver - no marked cirrhosis type morphology noted on imaging - No significant splenomegaly -Paracentesis pending -Add fluid studies -Highly doubt SBP - Treatment per gastroenterology Thrombocytopenia - Appears to be chronic - Highly suspect related to liver disease but could be bone marrow suppression from alcohol use - Per discussion patient is not currently using significant abe of alcohol -Repeat lab in a.m. Hypokalemia - Aggressive replacement - Check a.m. magnesium level Hypophosphatemia - Phosphorus ordered via K-Phos - Recheck lab in a.m. Constipation - Start MiraLAX p.o. twice daily Lactic acidosis - Likely related to the above - Has trended down with IV fluids - Discontinue IV fluids for now - No further trend required Chronic macrocytic anemia - Like related liver disease from alcohol use - Counts are stable with no signs of acute GI bleeding - Outpatient follow-up with GI after discharge DM-2 - Continue basal insulin 10 units daily - Continue SSI - Hold home oral agents - Carb controlled diet - Accu-Cheks as ordered CAD/essential hypertension/hyperlipidemia - Continue home hydralazine - Continue home metoprolol - Continue home Aldactone - Continue home Lasix - As needed hydralazine to continue - Continue atorvastatin Diabetic neuropathy - Start home gabapentin GERD -discontinue IV Protonix and start home dose History of alcohol abuse -patient without any current significant alcohol use -discontinue phenobarbital - okay to continue p.o. thiamine and folate History of aortic valve replacement - Bioprosthetic valve in 2017 - No current murmur History of sick sinus syndrome - Continue home metoprolol - Previous pacemaker History of AAA/thoracic aortic aneurysm - Had thoracic dissection and was treated at [facility] History of heroin abuse - Remote -patient states he has been clean for approximately 10 years Tobacco abuse - Encouraged cessation - nicotine patch replacement available DVT prophylaxis - Platelet count is 100,000 - Start Lovenox 40 subcu daily CODE STATUS - Full code Charges/Coding Visit Charges Inpatient E&M: 73664 Subs Hosp L2 06/26/241943 Cosigner Signature (if applicable): CC: ~ Signed [facility]05-19-2025 Consult note [facility] Medical Records Department [address] [place] [address] Consultation - GI 06/26/24 175 MR#: [id number] Acct: [id number] Name: ANALILIA MELENDREZ Rep #:[id number] : 1960 63 From: Antony Friend DO PCP: ALAN Wilde Status:ADM I N Location: [place] [address] HPI Consult Data Date of Consult: 06/26/24 HPI Narrative Reason for Consultation: Possible alcoholic cirrhosis HPI Narrative: ANALILIA MELENDREZ, is a 63 M who presents with chief complaints of abdominal pain,distention, constipation. He has a complicated past medical history of DM, aortic valve replacement, HTN, chronic alcohol abuse who presents for evaluationof abdominal pain, distention, constipation. He states that he has chronic history of abdominal pain and is why he drinks alcohol. He has been at our institution before but I have never seen him on consultation. He stated that for the past several months he has been having diarrhea in which he has had outpatient workup including EGD and colonoscopy in May. He had a poor prep during his colonoscopy and only thing that was noted was nonbleeding internal hemorrhoids. On his upper endoscopy was not noted whether he had any sign of portal gastropathy, esophageal varices, gastric varices or duodenal varices. He states that there was no acute findings. Patient states 4 days ago his diarrhea stopped and he became constipated. He complains of diffuse abdominal pain and distention. He also complains of decreased urine output and foul-smelling urine. In the ER he was noted to have Critical Hypokalemia of 2.1 mmol/L present on admission complicated by Lactic Acidosis of 6.6 mmol/Lpossibly secondary to metformin. CT scan of the abdomen and pelvis with IV contrast that revealed diffuse small bowel and colonic wall thickening likely secondary to ascites with large abdominal pelvic ascites and hepatomegaly with diffuse steatosis Today he underwent large-volume paracentesis and had 2.2 L of serosanguineous fluid removed. Analysis of the fluid was not done so a SAG gradient could not be calculated. [facility] Medical History MALIK (acute kidney injury) Seizures Alcoholic hepatitis Chronic pancreatitis Gastric wall thickening Alcohol dependence Abdominal ascites Anxiety Diabetes Pancreatitis Myocardial infarct Pacemaker AAA (abdominal aortic aneurysm) Admitted to alcohol detoxification center Alcohol abuse Hx of hypercholesterolemia History of diabetes mellitus Alcohol dependence Substance abuse Smoker Alcoholism Right bundle branch block (RBBB) Non-sustained ventricular tachycardia Thoracic aortic aneurysm SVT (supraventricular tachycardia) Ascending aortic dissection (~2005) Pure hypercholesterolemia Adrenal nodule Hiatal hernia Left carotid bruit Cardiac pacemaker in situ (~06/2016) Essential hypertension Pacemaker Sick sinus syndrome Tobacco use HTN (hypertension) Diabetes mellitus, type II Home Medications ?Medication ?Instructions ?Recorded ?Last Taken ?Type atorvastatin 10 mg tablet 10 mg PO DAILY CHOLESTEROL 0 10/17/20 04/19/23 History hydralazine 25 mg tablet 25 mg PO TID BP 10/17/2001/01 History dapagliflozin propanediol 10 mg 10 mg PO DAILY DIABETE S 09/30/21 04/19/23 History tablet (Farxiga) Held on 05/20/23. Instructions: Hold it because of MALIK. multivitamin 1 tab PO DAILY SUPPLEMENT 11/10/21 History gabapentin 300 mg capsule 300 mg PO DAILY NEUROPATHY 1 Unknown History insulin glargine 100 unit/mL (3 10 unit subcut 1200 DI ABETES 11/14/22 04/19/23 History mL) subcutaneous pen (Lantus Solostar U-100 Insulin) metformin 500 mg tablet,extended 500 mg PO BID DIABETE S 11/15/22 04/19/23 History release 24 hr Held on 05/20/23. Instructions: Hold at least 1 week . Discontinue if creatinine clearance less than 30 mill per minute L.acidophil,salivari-Bifido 2 cap PO BID #0 caps 05/19 Unknown Rx bifidum-Strep thermoph 175 mg capsule dicyclomine 10 mg capsule 20 mg (2 x 10 mg) PO Q6H PRN PRN 05/20/23 Unknown Rx abdominal discomfort #0 caps folic acid 1 mg tablet 1 mg PO DAILY@0800 #0 tabs 0 05/20/23 Unknown Rx furosemide 40 mg tablet 40 mg PO DAILY #30 tabs 05/09 03/03 Unknown Rx insulin lispro 100 unit/mL See Protocol subcut ACHS #0 mL 05/20/23 Unknown Rx subcutaneous pen (Humalog KwikPen (U-100) Insulin) metoprolol succinate 25 mg 25 mg PO BID 30 days #60 ta bs 05/20/23 Unknown Rx tablet,extended release 24 hr spironolactone 25 mg tablet 12.5 mg (1/2 x 25 mg) PO D AILY #30 05/20/23 Unknown Rx tabs thiamine HCl (vitamin B1) 100 mg 100 mg PO DAILYCM #0 tabs 05/20/23 Unknown Rx tablet (Vitamin B-1) pantoprazole 40 mg tablet,delayed 40 mg PO BID #60 tab s 06/27/23 Unknown Rx release Allergy/AdvReac Type Severity Reaction Status Date / Time No Known Allergies Allergy Verified 05/09/23 13:37 Family History Father CAD (coronary artery disease) Mother Dementia Surgical History H/O cardiac catheterization History of aortic aneurysm repair (~2016) History of cataract surgery History of hernia repair History of aortic valve replacement with bioprosthetic valve (~2016) H/O aortic valve replacement Social History household members: family housing: house Smoking Status: Current every day smoker tobacco type: cigarettes alcohol intake: current alcohol intake frequency: 0-2 drinks per day details: Reports currently ~ 2 tall boys daily. substance use type: former substance user caffeine: Yes Type: coffee Number of servings: 3 ROS ROS Narrative Review of Systems: Constitutional: Patient denies fever or chills. Eyes: Patient denies changes in vision or discharge from eyes. ENT: Patient denies runny nose, sore throat or ear pain. Resp: Patient denies shortness of breath or cough. CV: Patient denies chest pain, palpitations, heart racing or lower extremity edema. GI: Patient admits to diffuse abdominal pain and distention with ascites and chronic diarrhea with nausea but he denies vomiting. : Patient admits to decreased urine output with foul-smelling urine. MSK: Patient denies arthralgias or myalgias. Skin: Patient denies rash, abscess, wounds or jaundice. Psych: Patient denies symptoms of uncontrolled depression or anxiety. Neuro: Patient denies headache, paresthesias or focal neurologic deficits. Allergy: Patient denies lip swelling, tongue swelling or urticaria. Hematology: Patient denies easy bleeding or easy bruisability. Endocrinology: Patient denies polyuria, polydipsia, polyphagia or heat/cold intolerance. 14 point ROS otherwise negative save for positives noted above in HPI. Physical Exam Const alert, oriented x3, no apparent distress and average body habitus Constitutional Narrative: Patient appears chronically ill and older than his stated age. General Appearance: cooperative HEENT normocephalic, head/scalp atraumatic and hearing grossly normal bilaterally Eyes PERRL, EOMs intact bilaterally and conjunctivae normal Neck no lymphadenopathy, supple and no JVD Resp normal respiratory effort, no retractions, no use of accessory muscles and clearto auscultation bilaterally Cardio regular rate and regular rhythm GI GI Narrative: Patient's abdomen is distended with positive fluid wave and tender to palpation diffusely with bruising in abdomen likely from insulin injections. There is no rebound or guarding. Extremity normal to inspection, full ROM and no clubbing, cyanosis or edema Skin Skin Narrative: Patient has bruising over abdomen likely from recent insulin injections. Neuro oriented x3, CN's II-XII intact bilaterally, moves all extremities and no focal motor deficits Sensorium / Orientation: awake, alert, oriented to person, oriented to place andoriented to time Speech: speech normal Psych affect normal Lab / Micro Data 06/26/24 05:25 06/26/24 05:25 Labs: Laboratory Results - last 24 hr 06/25/24 01:16: Magnesium 1.8 06/25/24 01:58: Lactic Acid 4.7 H* 06/25/24 18:00: Lactic Acid 6.6 H* 06/25/24 18:07: WBC 4.8, RBC 2.80 L, Hgb 10.1 L, Hct 29.8 L, MCV 106.4 H, MCH 36.1 H, MCHC 33.9, RDW Std Deviation 63.9 H, RDW Coeff of [place] 16.2 H, Plt Count 124 L, MPV 11.8, Immature Gran % (Auto) 0.200, Neut % (Auto) 65.3, Lymph % (Auto) 22.1, [place] % (Auto) 11.6 H, Eos % (Auto) 0.2, Baso % (Auto)0.6, AbsoluteNeuts (auto) 3.1, Absolute Lymphs (auto) 1.05, Nucleated RBC % 0, Sodium 136, Potassium 2.2 L* 06/25/24 18:07: Potassium 2.1 L*, Chloride 95 L, Carbon Dioxide 24.2, Anion Gap 16 H, BUN 8, Creatinine 1.27 H, Estim Creat Clear Calc 65.06, Est GFR (MDRD) Non-Af 64, BUN/Creatinine Ratio 6.5 L, Glucose 398 H, Hemoglobin A1c 6.6 H, Calcium 7.7, Magnesium 1.8, Total Bilirubin 0.46, AST 62 H, ALT 32, Alkaline Phosphatase 125, Total Protein 5.0 L, Albumin 2.5 L, Globulin 2.5, Albumin/Globulin Ratio1.0, Lipase 6 L, b-Hydroxybutyric mmol/L 0.1 06/25/24 19:17: POC Glucose 348 H 06/25/24 19:23: Urine Color Yellow, Urine Clarity Clear, Urine pH 7.0, Ur Specific [place] 1.010, Urine Protein 15 H, Urine Glucose (UA) 1000 H, Urine Ketones Negative, Urine Occult Blood 50 H, UrineNitrite Negative, Urine Bilirubin Negative, Urine Urobilinogen Normal, Ur Leukocyte Esterase Negative, Urine RBC 0 SEEN, Urine WBC 0 SEEN, Ur Squamous Epith Cells 0 SEEN, Urine Bacteria 0 SEEN, UrineMucus 0 SEEN 06/25/24 20:30: POC Glucose 277 H 06/25/24 22:19: Lactic Acid 4.8 H*, Ethyl Alcohol < 10.1 06/26/24 02:12: POC Glucose 197 H 06/26/24 05:25: WBC 4.8, RBC 2.56 L, Hgb 9.3 L, Hct 27.1 L, MCV 105.9 H, MCH 36.3 H, MCHC 34.3, RDWStd Deviation 63.6 H, RDW Coeff of [place] 16.3 H, Plt Count 100 L, MPV 11.6, Immature Gran % (Auto) 0.200, Neut % (Auto) 68.4, Lymph % (Auto) 18.4 L, [place] % (Auto) 11.8 H, Eos % (Auto) 0.4, Baso % (Auto) 0.8, Absolute Neuts (auto) 3.3, Absolute Lymphs (auto) 0.89, Nucleated RBC % 0, Sodium 142, Potassium 2.7 L*, Chloride 107, Carbon Dioxide 24.9, Anion Gap 10, BUN 6, Creatinine 0.97, Estim Creat Clear Calc 84.27, Est GFR (MDRD) Non-Af 88, BUN/Creatinine Ratio 6.5 L, Glucose 180 H, Calcium 7.1 L, Phosphorus 2.3 L, Total Bilirubin 0.42, AST 49 H, ALT 26, Alkaline Phosphatase 102, Total Protein 4.3L, Albumin 2.1 L, Globulin 2.1 L, Albumin/Globulin Ratio 1.0, Triglycerides 89, Cholesterol 74, LDLCholesterol, Calc 24, VLDL Cholesterol 18, HDL Cholesterol 32 L, Cholesterol/HDL Ratio 2.29, TSH 1.740 06/26/24 05:58: POC Glucose 172 H 06/26/24 07:05: Lactic Acid 3.1 H* 06/26/24 12:08: POC Glucose 138 H 06/26/24 16:55: POC Glucose 201 H Micro: Microbiology 06/25/24 22:38 Stool Stool Lactoferrin - Final 06/25/24 22:38 Stool Enteric Bacteriology - Final 06/25/24 22:38 Stool Clostridioides difficile (PCR) - Final ABG Data ABG results: ABG 06/25/24 19:23 Specimen Type ROSA Sample Site Not entered VBG pH 7.43 H VBG pO2 29 VBG HCO3 29 H VBG Total CO2 30 VBG O2 Sat (Calc) 58 VBG Base Excess 4 H POC Mix VBG pCO2 Pt Tmp 42.7 O2 Delivery Device Room Air Imaging Radiology Impression Abdomen/Pelvis CT 06/25/24 16:43 IMPRESSION: 1. Diffuse small bowel and colonic wall thickening, likely secondary to ascites. 2. Large abdominopelvic ascites. 3. Hepatomegaly and diffuse steatosis. OVERALL FINAL ASSESSMENT: . LI-RADS is not meant to be used in patients <18 years or patients with cirrhosisdue to congenital hepatic fibrosis or due to vascular disorders, because these patients have a lower chance of developing HCC. Reading Location: [facility] Paracentesis Ultrasound 06/26/24 06:00 IMPRESSION: Successful paracentesis with removal of 2050 mL of light colored fluid. Reading Location: [facility] Assessment & Plan Assessment/Plan (1) Chronic alcohol abuse: (2) Hypokalemia: (3) Chronic diarrhea: (4) Lactic acidosis: (5) Adverse drug reaction: QUALIFIERS: Encounter type: initial encounter Qualified Code(s): T50.905A - Adverse effect of unspecified drugs, medicaments and biological substances, initial encounter (6) Ascites due to alcoholic cirrhosis: (7) Macrocytosis associated with alcohol: PLAN: Plan 63-year-old with past medical history of chronic alcohol abuse complicated by macrocytosis, thrombocytopenia, coagulopathy, protein calorie malnutrition, chronic pancreatitis as seen on imaging and cirrhosis with new onset ascites. His current MELD is 20 and he has a Child-Ndiaye class B-C. A?MELD score of 20 indicates a 19.6% 3-month mortality rate, while a Child- Pughclass B-C indicates a?30%-82% perioperative mortality rate depending on the specific class.?These scores are used to assess the severity of liver disease and predict mortality risk in patients with cirrhosis.? - Decompensated alcoholic cirrhosis with ascites-status post large-volume paracentesis. The patientsays that he has not had a drink in a long time. Hislabs from last year showed that he was viral hepatitis A, B and C negative. He will need to be vaccinated for hepatitis AMB as an outpatient. He also will need to be checked for HIV. He will need to be started on diuretics. He is noted as an outpatient to be on furosemide 40 mg a day and spironolactone 12.5 mg a day. His goal should be 80 mg of furosemide and 100 mg 2 200 mg of spironolactone a day. This depends on his kidney function. He should be screened for esophageal varices with an upper endoscopy. He should also get a protein electrophoresis as there is associated with a monoclonal gammopathy withalcoholic cirrhosis. - Chronic alcoholic pancreatitis-I think his weight loss and diarrhea is likely associated with exocrine pancreatic insufficiency secondary to chronic pancreatitis and inability to secrete appropriate pancreatic enzymes for absorption. He should get a fecal elastase checked along with an IBD SGI and ESR and CRP. - Thrombocytopenia -likely secondary to splenic sequestration in the setting of cirrhosis. On his imaging he does not have significant splenomegaly. - Hepatomegaly-secondary to fatty liver disease from alcohol. He could have a significant amount ofgood liver left if he is able to get his ascites under control as he does not have splenomegaly. Particularly that is a reversible andat least a worsening portal hypertension and the complications associated with worsening portal hypertension. 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 - 500 mg sodium restriction -Further recommendation to follow 1. Critical Hypokalemia of 2.1 mmol/L present on admission in the setting of Chronic Diarrhea - Give supplemental IV and oral KCl and then recheck level in the AM. Check stool studies in case of infectious etiology and place under enteric precautions plus start empiric IV metronidazole in case of Clostridium difficile colitis. Finally, we will consult gastroenterology for further recommendations with help appreciated in advance. 2. Lactic Acidosis of 6.6 mmol/L present on admission suspected to be due at least in part to Adverse Drug Reaction to metformin complicating #1 - Volume resuscitate and serialize lactate to follow trend with repeat lactic acid down to 4.8 mmol/L after initial round of treatment. 3. Chronic EtOH Abuse with large abdominal pelvic ascites on CT this admission in addition to Macrocytosis with MCV of 106.4 fL present on admission compounding #1 & #2 - EtOH cessation will be strongly encouraged. Start Phenobarbital IV to prevent impending EtOH withdrawal. Check B12 and folate levels with macrocytosis. Give MVI IV while patient NPO. Finally, we will set up diagnostic and therapeutic paracentesis at interventional radiology in a.m. with help appreciated in advance. Check EtOH level. 4. Moderate Thrombocytopenia of 124K present on admission suspected to be due to marrow-suppressionfrom EtOH adding to the medical complexity of #1 - #3 - Check CBC daily to follow trend. 5. Chronic diarrhea which includes an outpatient workup including EGD and colonoscopy in March of this year done by Dr. Vazquez at [facility] for indication of iron deficiency anemia, with patient stating there were no acute findings in the setting of poor colon prep and nonbleeding internal hemorrhoids with repeat colonoscopy recommended in 1 year and EGD revealing erythematous mucosa in the atrium which was biopsied with an irregular Z-line that was biopsied adding to the burden of disease outlined from #1 - #4 - Noted. 6. DM-2; on insulin glargine 10 units sq daily, insulin lispro AC/HS, dapagliflozin and metformin plus diabetic neuropathy; on gabapentin - Keep NPO for now until GI evaluation. Check FSBS q. AC/HS plus lowest-intensity SSI. 7. Chronic Tobacco Abuse - Tobacco cessation will be strongly encouraged with Nicotine patch however to control cravings. 8. Essential hypertension; on metoprolol twice daily, hydralazine 3 times daily, furosemide and spironolactone - Hold home regimen until volume is resuscitated and give prn hydralazine IV for systolic blood pressure > 160 mmHg. 9. Hyperlipidemia; on atorvastatin - Restart statin when patient is cleared fororal intake. Check Lipid Profile. 10. Overweight; with a BMI of 26.6 this admission - Weight loss will be recommended. Check TSH. 11. History of heroin abuse; with patient denying abuse for ~10 years - Check UDS. Apparently no UDS was checked prior to patient being treated with IV morphine in ER. 12. CAD; s/p AZ - Noted. 13. History of mechanical aortic valve replacement (2014) followed by bioprosthetic aortic valve replacement (~2016) - Stable. 14. History of SSS; s/p PPM (2017) - Noted. 15. History of RBBB - Noted. 16. History of NSVT - Noted with no signs of recurrence at this time. 17. History of AAA - Noted. 18. History of thoracic aortic aneurysm with dissection (~2005 & ~2017 at [facility]) - Noted. 19. History of alcoholic hepatitis - Noted. 20. History of chronic pancreatitis - Noted with normal Lipase of 6 present on admission and no signs of pancreatic inflammation on CT this admission. 21. History of seizures; likely due to EtOH withdrawal - Noted. 22. History of MALIK - Noted. 23. GERD with hiatal hernia; on pantoprazole twice daily - Resume pantoprazole IV while NPO. 24. History of hernia; s/p repair - Noted. 25. Generalized anxiety - Give low-dose prn IV lorazepam for breakthrough symptoms. 26. DVT prophylaxis - SCD's only with impending paracentesis and endoscopy. Total time: Approximately (but not less than) 75 minutes. Charges/Coding Visit Charges Inpatient E&M: 16741 Init Hosp L3 06/26/24 1815 Cosigner Signature (if applicable): CC: VEHICLE MODIFICATION TECHNICIANAstrid Wagner; Dr. Rolan Romero DO~ Signed [facility]05-19-2025 Radiology Diagnostic study note [facility] Imaging Services [address] [place], [place] [id number] Paracentesis with US MR#: [id number] Acct: [id number] Name: ANALILIA MELENDREZ Rep #: [id number] : 1960 M 63 From: Francis Campos MD PCP: ALAN Wilde Status: ADM I N Study:Paracentesis with US Date of Exam: 06/26/24 Exam# [id number] Ordering Dr: Conrado Geronimo DO PROCEDURE: PARACENTESIS WITH US 06/26/2024 REASON FOR EXAM: LARGE ABDOMINAL PELVIC ASCITES W/ CHRONIC ETOH ABU TECHNIQUE: Paracentesis. The procedure as well as the benefits and possible complications including infection were explained to the patient. Informed consent was obtained. The overlying skin was prepped and draped in the usual sterile fashion. Following local anesthetic application, a 5 [place] catheter was placed into the abdomen. 2050 mL of light colored fluid was aspirated. A sample was sent to the laboratory. COMPARISON: None FINDINGS: Successful paracentesis US/Paracentesis with US IMPRESSION: Successful paracentesis with removal of 2050 mL of light colored fluid. Reading Location: [facility] CC: ALAN Wagner; Dr. Conrado Pro DO ~ Utilization Review Coordinator: Signed [facility]05-19-2025 Telephone encounter Note* Telephone Encounter - Marianna Wagner, VEHICLE DISMANTLER.SPLUNK D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 - 06/26/2024 9:57 AM EDT Will address in next OV. [facility]05-19-2025 Miscellaneous Notes* Telephone Encounter - Marianna Wagner APRN.CNP - 06/26/2024 9:57 AM EDT Will address in next OV. * Telephone Encounter - Suzi Haynes MA - 06/26/2024 7:16 AM EDT Patient is currently admitted, would you like us to put a new reminder in. Please advise. Suzi Haynes MA * Telephone Encounter - Suzi Haynes MA - 06/26/2024 7:16 AM EDT ----- Message from Andrew Horowitz MA sent at 03/28/2024 8:14 AM EST ----- Remind pt. Time to recheck Alc. Andrew Ponce MA [facility] History and physical note Author Conrado Fraser [facility] Note Date/Time June 26, 2024 6:34a m [facility] Medical Records Department [address] [place] [address] H&P Exam - Hospitalist 06/25/242128 MR#: [id number] Acct: [id number] Name: ANALILIA MELENDREZ Rep #:[id number] : 1960 63 From: Conrado Gonzalez DO PCP: VINOD WildeC Status:ADM I N Location: [place] [address] HPI - General General Date of Admission: 06/25/24 Date of Service: 06/25/24 Chief Complaint: Abdominal Pain, Chronic Diarrhea and Chronic EtOH Abuse. HPI Narrative ANALILIA MELENDREZ, is a 63 M with a past medical history of essential hypertension; on metoprolol twice daily, hydralazine 3 times daily, furosemide and spironolactone, hyperlipidemia; on atorvastatin, overweight; with a BMI of 26.6 this admission, chronic tobacco abuse, history of heroin abuse; with patient denying abuse for ~10 years, DM-2; on insulin glargine 10 units sq daily, insulin lispro AC/HS, dapagliflozin and metformin, diabetic neuropathy; on gabapentin, CAD; s/p AZ, history of mechanical aortic valve replacement (2014) followed by bioprosthetic aortic valve replacement (~2016), history of SSS; s/p PPM (2016), history of RBBB, history of NSVT, history of AAA, history of thoracic aortic aneurysm with dissection (~2005 & ~2016 at [facility]), chronic EtOHabuse; with patient admitting to ~2-3 forty ounce beers daily on supplemental thiamine and folate, history of alcoholic hepatitis, history of chronic pancreatitis, history of seizures; likely due to EtOH withdrawal, history of MALIK, GERD with hiatal hernia; on pantoprazole twice daily, history of hernia; s/p repair and generalized anxiety who [facility] ERcomplaining of abdominal pain, chronic diarrhea and chronic alcohol abuse. Mr. Melendrez reports his symptoms began several months prior to admission with chronic diarrhea which includes an outpatient workup including EGD and colonoscopy in March of this year done by Dr. Vazquez at [facility] for indication of iron deficiency anemia, with patient stating there were no acute findings in the setting of poor colon prep and nonbleeding internal hemorrhoids with repeat colonoscopy recommended in 1 year and EGD revealing erythematous mucosa in the atrium which was biopsied with an irregular Z-line that was biopsied. Then approximately 4 days ago his diarrhea stopped and became severely constipated with increasing abdominal pain and distention. He also admits to decreased urine output, foul-smelling urine and recently decreased oral intake. He states he is still drinking alcohol but he was only able to drink 1 tall boy today. He admits to nausea but he denies associated fever, chills, vomiting, chest pain, palpitations, heart racing, shortness of breath, headache or rash. In the ER he was noted to have Critical Hypokalemia of 2.1 mmol/L present on admission complicated by Lactic Acidosis of 6.6 mmol/L present on admission suspected to be due at least in part to Adverse Drug Reaction to metformin with corresponding CT scan of the abdomen and pelvis with IV contrast that revealed diffuse small bowel and colonic wall thickening likely secondary to ascites withlarge abdominal pelvic ascites and hepatomegaly with diffuse steatosis in the setting of Chronic EtOH Abuse in addition to laboratory evidence of moderate Thrombocytopenia of 124K present on admission suspected to be due to marrow-suppression from EtOH. He was then admitted to the PCU for ongoing care for stay that is expected to extend beyond 2 midnights. [facility] Medical History MALIK (acute kidney injury) Seizures Alcoholic hepatitis Chronic pancreatitis Gastric wall thickening Alcohol dependence Abdominal ascites Anxiety Diabetes Pancreatitis Myocardial infarct Pacemaker AAA (abdominal aortic aneurysm) Admitted to alcohol detoxification center Alcohol abuse Hx of hypercholesterolemia History of diabetes mellitus Alcohol dependence Substance abuse Smoker Alcoholism Right bundle branch block (RBBB) Non-sustained ventricular tachycardia Thoracic aortic aneurysm SVT (supraventricular tachycardia) Ascending aortic dissection (~2005) Pure hypercholesterolemia Adrenal nodule Hiatal hernia Left carotid bruit Cardiac pacemaker in situ (~06/2016) Essential hypertension Pacemaker Sick sinus syndrome Tobacco use HTN (hypertension) Diabetes mellitus, type II Home Medications ?Medication ?Instructions ?Recorded ?Last Taken ?Type atorvastatin 10 mg tablet 10 mg PO DAILY CHOLESTEROL 0 10/17/20 04/19/23 History hydralazine 25 mg tablet 25 mg PO TID BP 10/17/2001/01 History dapagliflozin propanediol 10 mg 10 mg PO DAILY DIABETE S 09/30/21 04/19/23 History tablet (Farxiga) Held on 05/20/23. Instructions: Hold it because of MALIK. multivitamin 1 tab PO DAILY SUPPLEMENT 11/10/21 History gabapentin 300 mg capsule 300 mg PO DAILY NEUROPATHY 1 Unknown History insulin glargine 100 unit/mL (3 10 unit subcut 1200 DI ABETES 11/14/22 04/19/23 History mL) subcutaneous pen (Lantus Solostar U-100 Insulin) metformin 500 mg tablet,extended 500 mg PO BID DIABETE S 11/15/22 04/19/23 History release 24 hr Held on 05/20/23. Instructions: Hold at least 1 week . Discontinue if creatinine clearance less than 30 mill per minute L.acidophil,salivari-Bifido 2 cap PO BID #0 caps 05/19 Unknown Rx bifidum-Strep thermoph 175 mg capsule dicyclomine 10 mg capsule 20 mg (2 x 10 mg) PO Q6H PRN PRN 05/20/23 Unknown Rx abdominal discomfort #0 caps folic acid 1 mg tablet 1 mg PO DAILY@0800 #0 tabs 0 05/20/23 Unknown Rx furosemide 40 mg tablet 40 mg PO DAILY #30 tabs 05/09 03/03 Unknown Rx insulin lispro 100 unit/mL See Protocol subcut ACHS #0 mL 05/20/23 Unknown Rx subcutaneous pen (Humalog KwikPen (U-100) Insulin) metoprolol succinate 25 mg 25 mg PO BID 30 days #60 ta bs 05/20/23 Unknown Rx tablet,extended release 24 hr spironolactone 25 mg tablet 12.5 mg (1/2 x 25 mg) PO D AILY #30 05/20/23 Unknown Rx tabs thiamine HCl (vitamin B1) 100 mg 100 mg PO DAILYCM #0 tabs 05/20/23 Unknown Rx tablet (Vitamin B-1) pantoprazole 40 mg tablet,delayed 40 mg PO BID #60 tab s 06/27/23 Unknown Rx release Allergy/AdvReac Type Severity Reaction Status Date / Time No Known Allergies Allergy Verified 05/09/23 13:37 Family History Father CAD (coronary artery disease) Mother Dementia Surgical History H/O cardiac catheterization History of aortic aneurysm repair (~2016) History of cataract surgery History of hernia repair History of aortic valve replacement with bioprosthetic valve (~2016) H/O aortic valve replacement Social History household members: family housing: house Smoking Status: Current every day smoker tobacco type: cigarettes alcohol intake: current alcohol intake frequency: 0-2 drinks per day details: Reports currently ~ 2 tall boys daily. substance use type: former substance user caffeine: Yes Type: coffee Number of servings: 3 ROS ROS Narrative Review of Systems: Constitutional: Patient denies fever or chills. Eyes: Patient denies changes in vision or discharge from eyes. ENT: Patient denies runny nose, sore throat or ear pain. Resp: Patient denies shortness of breath or cough. CV: Patient denies chest pain, palpitations, heart racing or lower extremity edema. GI: Patient admits to diffuse abdominal pain and distention with ascites and chronic diarrhea with nausea but he denies vomiting. : Patient admits to decreased urine output with foul-smelling urine. MSK: Patient denies arthralgias or myalgias. Skin: Patient denies rash, abscess, wounds or jaundice. Psych: Patient denies symptoms of uncontrolled depression or anxiety. Neuro: Patient denies headache, paresthesias or focal neurologic deficits. Allergy: Patient denies lip swelling, tongue swelling or urticaria. Hematology: Patient denies easy bleeding or easy bruisability. Endocrinology: Patient denies polyuria, polydipsia, polyphagia or heat/cold intolerance. 14 point ROS otherwise negative save for positives noted above in HPI. Vital Signs Vital Signs Vital Signs: 06/25/24 16:17 06/25/24 18:25 06/25/24 20:00 Temperature 98.6 F Temperature Source Oral Pulse Rate 104 H 74 88 Respiratory Rate 18 16 18 Blood Pressure 134/98 H 104/71 Blood Pressure Mean 110 82 Pulse Ox 98 96 94 Oxygen Delivery Method Room Air Room Air Weight Weight: 190 lb 11.198 oz Body Mass Index (BMI) 26.6 Physical Exam Const alert, oriented x3, no apparent distress and average body habitus Constitutional Narrative: Patient appears chronically ill and older than his stated age. General Appearance: cooperative HEENT normocephalic, head/scalp atraumatic and hearing grossly normal bilaterally HEENT Narrative: Mucous membranes dry. Eyes PERRL, EOMs intact bilaterally and conjunctivae normal Neck no lymphadenopathy, supple and no JVD Resp normal respiratory effort, no retractions, no use of accessory muscles and clearto auscultation bilaterally Cardio regular rate and regular rhythm GI GI Narrative: Patient's abdomen is distended with positive fluid wave and tender to palpation diffusely with bruising in abdomen likely from insulin injections. There is no rebound or guarding. Extremity normal to inspection, full ROM and no clubbing, cyanosis or edema Skin Skin Narrative: Patient has bruising over abdomen likely from recent insulin injections. Neuro oriented x3, CN's II-XII intact bilaterally, moves all extremities and no focal motor deficits Sensorium / Orientation: awake, alert, oriented to person, oriented to place andoriented to time Speech: speech normal Psych affect normal Results Medical Records Data Attestation: I reviewed the patient's medical records Lab / Micro Data Attestation: I reviewed the patient's lab results. 06/26/24 05:25 06/25/24 18:07 Labs: Laboratory Results - last 24 hr 06/25/24 17:17: WBC Cancelled, Corrected WBC Cancelled, RBC Cancelled, Hgb Cancelled, Hct Cancelled, MCV Cancelled, MCH Cancelled, MCHC Cancelled, RDW Std Deviation Cancelled, RDW Coeff of Kalpana Cancelled, Plt Count Cancelled, MPV Cancelled, Immature Gran % (Auto) Cancelled, Neut % (Auto) Cancelled, Lymph % (Auto) Cancelled, [place] % (Auto) Cancelled, Eos % (Auto) Cancelled, Baso % (Auto)Cancelled, Absolute Neuts (auto) Cancelled, Absolute Lymphs (auto) Cancelled, Total Counted Cancelled, Neutrophils % (Manual) Cancelled, Band Neutrophils % Cancelled, Lymphocytes % (Manual) Cancelled, Monocytes % (Manual) Cancelled, Eosinophils % (Manual) Cancelled, Basophils % (Manual) Cancelled, Metamyelocytes% Cancelled, Myelocytes % Cancelled, Promyelocytes % Cancelled, Blast Cells % Cancelled, Plasma Cell % (Manual) Cancelled, Other Cells % Cancelled, Nucleated RBC % Cancelled, Nucleated RBCs/100 WBC Cancelled, Differential Comment Cancelled, Diff Path Review Cancelled, Hypersegmented Neuts Cancelled, Atypical Lymphocytes Cancelled, Reactive Lymphocytes Cancelled, Smudge Cells Cancelled, Toxic Granulation Cancelled, Toxic Vacuolation Cancelled, Dohle Bodies Cancelled, Huyen Rods Cancelled, Platelet Estimate Cancelled, Plt Morphology Comment Cancelled, RBC Morphology Cancelled 06/25/24 17:17: RBC Morphology Cancelled, Polychromasia Cancelled, HypochromasiaCancelled, Basophilic Stippling Cancelled, Anisocytosis Cancelled, Microcytosis Cancelled, Macrocytosis Cancelled, Spherocytes Cancelled, Sickle Cells Cancelled, Target Cells Cancelled, Tear Drop Cells Cancelled, Ovalocytes Cancelled, Stomatocytes Cancelled, Whiteside-Morrill Bodies Cancelled, [place] Cells Cancelled, Bite Cells Cancelled, Crenated Cell Cancelled, Acanthocytes (Spur) Cancelled, Rouleaux Cancelled, Schistocytes Cancelled, Sodium Cancelled, Potassium Cancelled, Chloride Cancelled, Carbon Dioxide Cancelled, Anion Gap Cancelled, BUN Cancelled, Creatinine Cancelled, Estim Creat Clear Calc Cancelled, Est GFR (MDRD) Non-Af Cancelled, BUN/Creatinine Ratio Cancelled, Glucose Cancelled, Calcium Cancelled, Total Bilirubin Cancelled, AST Cancelled, ALT Cancelled, Alkaline Phosphatase Cancelled, Total Protein Cancelled, Albumin Cancelled, Globulin Cancelled, Albumin/Globulin Ratio Cancelled, Lipase Cancelled 06/25/24 18:00: Lactic Acid 6.6 H* 06/25/24 18:07: WBC 4.8, RBC 2.80 L, Hgb 10.1 L, Hct 29.8 L, MCV 106.4 H, MCH 36.1 H, MCHC 33.9, RDW Std Deviation 63.9 H, RDW Coeff of Kalpana 16.2 H, Plt Count 124 L, MPV 11.8, Immature Gran % (Auto) 0.200, Neut % (Auto) 65.3, Lymph % (Auto) 22.1, Erath % (Auto) 11.6 H, Eos % (Auto) 0.2, Baso % (Auto) 0.6, AbsoluteNeuts (auto) 3.1, Absolute Lymphs (auto) 1.05, Nucleated RBC % 0, Sodium 136, Potassium 2.2 L* 06/25/24 18:07: Potassium 2.1 L*, Chloride 95 L, Carbon Dioxide 24.2, Anion Gap 16 H, BUN 8, Creatinine 1.27 H, Estim Creat Clear Calc 65.06, Est GFR (MDRD) Non-Af 64, BUN/Creatinine Ratio 6.5 L, Glucose 398 H, Calcium 7.7, Magnesium 1.8, Total Bilirubin 0.46, AST 62 H, ALT 32, Alkaline Phosphatase 125, Total Protein 5.0 L, Albumin 2.5 L, Globulin 2.5, Albumin/Globulin Ratio 1.0, Lipase 6L, b- Hydroxybutyric mmol/L 0.1 06/25/24 19:17: POC Glucose 348 H 06/25/24 19:23: Urine Color Yellow, Urine Clarity Clear, Urine pH 7.0, Ur Specific [place] 1.010, Urine Protein 15 H, Urine Glucose (UA) 1000 H, Urine Ketones Negative, Urine Occult Blood 50 H, Urine Nitrite Negative, Urine Bilirubin Negative, Urine Urobilinogen Normal, Ur Leukocyte Esterase Negative, Urine RBC 0 SEEN, Urine WBC 0 SEEN, Ur Squamous Epith Cells 0 SEEN, Urine Bacteria 0 SEEN, Urine Mucus 0 SEEN 06/25/24 20:30: POC Glucose 277 H ABG Data ABG results: ABG 06/25/24 19:23 Specimen Type ROSA Sample Site Not entered VBG pH 7.43 H VBG pO2 29 VBG HCO3 29 H VBG Total CO2 30 VBG O2 Sat (Calc) 58 VBG Base Excess 4 H POC Mix VBG pCO2 Pt Tmp 42.7 O2 Delivery Device Room Air Imaging Radiology Impression Abdomen/Pelvis CT 06/25/24 16:43 IMPRESSION: 1. Diffuse small bowel and colonic wall thickening, likely secondary to ascites. 2. Large abdominopelvic ascites. 3. Hepatomegaly and diffuse steatosis. OVERALL FINAL ASSESSMENT: . LI-RADS is not meant to be used in patients <18 years or patients with cirrhosisdue to congenital hepatic fibrosis or due to vascular disorders, because these patients have a lower chance of developing HCC. Reading Location: [facility] Assessment & Plan Assessment/Plan (1) Chronic alcohol abuse: (2) Hypokalemia: (3) Chronic diarrhea: (4) Lactic acidosis: (5) Adverse drug reaction: QUALIFIERS: Encounter type: initial encounter Qualified Code(s): T50.905A - Adverse effect of unspecified drugs, medicaments and biological substances, initial encounter (6) Ascites due to alcoholic cirrhosis: (7) Macrocytosis associated with alcohol: PLAN: Plan 1. Critical Hypokalemia of 2.1 mmol/L present on admission in the setting of Chronic Diarrhea - Give supplemental IV and oral KCl and then recheck level in the AM. Check stool studies in case of infectious etiology and place under enteric precautions plus start empiric IV metronidazole in case of Clostridium difficile colitis. Finally, we will consult gastroenterology for further recommendations with help appreciated in advance. 2. Lactic Acidosis of 6.6 mmol/L present on admission suspected to be due at least in part to Adverse Drug Reaction to metformin complicating #1 - Volume resuscitate and serialize lactate to follow trend with repeat lactic acid down to 4.8 mmol/L after initial round of treatment. 3. Chronic EtOH Abuse with large abdominal pelvic ascites on CT this admission in addition to Macrocytosis with MCV of 106.4 fL present on admission compounding #1 & #2 - EtOH cessation will be strongly encouraged. Start Phenobarbital IV to prevent impending EtOH withdrawal. Check B12 and folate levels with macrocytosis. Give MVI IV while patient NPO. Finally, we will set up diagnostic and therapeutic paracentesis at interventional radiology in a.m. with help appreciated in advance. Check EtOH level. 4. Moderate Thrombocytopenia of 124K present on admission suspected to be due to marrow-suppression from EtOH adding to the medical complexity of #1 - #3 - Check CBC daily to follow trend. 5. Chronic diarrhea which includes an outpatient workup including EGD and colonoscopy in March of this year done by Dr. Vazquez at [facility] for indication of iron deficiency anemia, with patient stating there were no acute findings in the setting of poor colon prep and nonbleeding internal hemorrhoids with repeat colonoscopy recommended in 1 year and EGD revealing erythematous mucosa in the atrium which was biopsied with an irregular Z-line that was biopsied adding to the burden of disease outlined from #1 - #4 - Noted. 6. DM-2; on insulin glargine 10 units sq daily, insulin lispro AC/HS, dapagliflozin and metformin plus diabetic neuropathy; on gabapentin - Keep NPO for now until GI evaluation. Check FSBS q. AC/HS plus lowest-intensity SSI. 7. Chronic Tobacco Abuse - Tobacco cessation will be strongly encouraged with Nicotine patch however to control cravings. 8. Essential hypertension; on metoprolol twice daily, hydralazine 3 times daily, furosemide and spironolactone - Hold home regimen until volume is resuscitated and give prn hydralazine IV for systolic blood pressure > 160 mmHg. 9. Hyperlipidemia; on atorvastatin - Restart statin when patient is cleared fororal intake. Check Lipid Profile. 10. Overweight; with a BMI of 26.6 this admission - Weight loss will be recommended. Check TSH. 11. History of heroin abuse; with patient denying abuse for ~10 years - Check UDS. Apparently no UDS was checked prior to patient being treated with IV morphine in ER. 12. CAD; s/p AZ - Noted. 13. History of mechanical aortic valve replacement (2014) followed by bioprosthetic aortic valve replacement (~2016) - Stable. 14. History of SSS; s/p PPM (2017) - Noted. 15. History of RBBB - Noted. 16. History of NSVT - Noted with no signs of recurrence at this time. 17. History of AAA - Noted. 18. History of thoracic aortic aneurysm with dissection (~2005 & ~2016 at [facility]) - Noted. 19. History of alcoholic hepatitis - Noted. 20. History of chronic pancreatitis - Noted with normal Lipase of 6 present on admission and no signs of pancreatic inflammation on CT this admission. 21. History of seizures; likely due to EtOH withdrawal - Noted. 22. History of MALIK - Noted. 23. GERD with hiatal hernia; on pantoprazole twice daily - Resume pantoprazole IV while NPO. 24. History of hernia; s/p repair - Noted. 25. Generalized anxiety - Give low-dose prn IV lorazepam for breakthrough symptoms. 26. DVT prophylaxis - SCD's only with impending paracentesis and endoscopy. Total time: Approximately (but not less than) 75 minutes. Charges/Coding Visit Charges Inpatient E&M: 10616 Init Hosp L3 06/26/24 0634 <Electronically signed by Conrado Pro DO> Cosigner Signature (if applicable): CC: ALAN Wagner; Dr. Conrado Pro DO~ Signed [facility] Work Phone: [phone]) 402-783205-19-2025 Telephone encounter Note* Telephone Encounter - Suzi Haynes MA - 06/26/2024 7:16 AM EDT Patient is currently admitted, would you like us to put a new reminder in. Please advise. Suzi Haynes MA [facility]05-19-2025 Telephone encounter Note* Telephone Encounter - Suzi Haynes MA - 06/26/2024 7:16 AM EDT ----- Message from Andrew Horowitz MA sent at 03/28/2024 8:14 AM EST ----- Remind pt. Time to recheck Alc. Andrew Ponce MA [facility]05-19-2025 History and physical note [facility] Medical Records Department [address] [place] [address] H&P Exam - Hospitalist [id number] MR#: [id number] Acct: [id number] Name: ANALILIA MELENDREZ Rep #:[id number] : 1960 63 From: Conrado Gonzalez DO PCP: ALAN Wilde Status:ADM I N Location: [place] [address] HPI - General General Date of Admission: 06/25/24 Date of Service: 06/25/24 Chief Complaint: Abdominal Pain, Chronic Diarrhea and Chronic EtOH Abuse. HPI Narrative ANALILIA MELENDREZ, is a 63 M with a past medical history of essential hypertension; on metoprolol twice daily, hydralazine 3 times daily, furosemide and spironolactone, hyperlipidemia; on atorvastatin,overweight; with a BMI of 26.6 this admission, chronic tobacco abuse, history of heroin abuse; withpatient denying abuse for ~10 years, DM-2; on insulin glargine 10 units sq daily, insulin lispro AC/HS, dapagliflozin and metformin, diabetic neuropathy; on gabapentin, CAD; s/p AZ, history of mechanical aortic valve replacement (2014) followed by bioprosthetic aortic valve replacement (~2016), history of SSS; s/p PPM (2016), history of RBBB, history of NSVT, history of AAA, history of thoracic aortic aneurysm with dissection (~2005 & ~2017 at [facility]), chronic EtOHabuse; with patient admittingto ~2-3 forty ounce beers daily on supplemental thiamine and folate, history of alcoholic hepatitis, history of chronic pancreatitis, history of seizures; likely due to EtOH withdrawal, history of MALIK , GERD with hiatal hernia; on pantoprazole twice daily, history of hernia; s/p repair and generalized anxiety who presents to [facility] ERcomplaining of abdominal pain, chronic diarrhea and chronic alcohol abuse. Mr. Melendrez reports his symptoms began several months prior to admission with chronic diarrhea which includes an outpatient workup including EGD and colonoscopy in March of this year done by Dr. Vazquez at [facility] for indication of iron deficiency anemia, with patient stating there were noacute findings in the setting of poor colon prep and nonbleeding internal hemorrhoids with repeat colonoscopy recommended in 1 year and EGD revealing erythematous mucosa in the atrium which was biopsied with an irregular Z-line that was biopsied. Then approximately 4 days ago his diarrhea stopped and became severely constipated with increasing abdominal pain and distention. He also admits to decreased urine output, foul-smelling urine and recently decreased oral intake. He states he is still drinking alcohol but he was only able to drink 1 tall boy today. He admits to nausea but he denies associated fever, chills, vomiting, chest pain, palpitations, heart racing, shortness of breath, headache or rash. In the ER he was noted to have Critical Hypokalemia of 2.1 mmol/L present on admission complicated by Lactic Acidosis of 6.6 mmol/L present on admission suspected to be due at least in part to Adverse Drug Reaction to metformin with corresponding CT scan of the abdomen and pelvis with IV contrast that revealed diffuse small bowel and colonic wall thickening likely secondary to ascites withlarge abdominal pelvic ascites and hepatomegaly with diffuse steatosis in the setting of Chronic EtOH Abusein addition to laboratory evidence of moderate Thrombocytopenia of 124K present on admission suspected to be due to marrow- suppression from EtOH. He was then admitted to the PCU for ongoing care for stay that is expected to extend beyond 2 midnights. [facility] Medical History MALIK (acute kidney injury) Seizures Alcoholic hepatitis Chronic pancreatitis Gastric wall thickening Alcohol dependence Abdominal ascites Anxiety Diabetes Pancreatitis Myocardial infarct Pacemaker AAA (abdominal aortic aneurysm) Admitted to alcohol detoxification center Alcohol abuse Hx of hypercholesterolemia History of diabetes mellitus Alcohol dependence Substance abuse Smoker Alcoholism Right bundle branch block (RBBB) Non-sustained ventricular tachycardia Thoracic aortic aneurysm SVT (supraventricular tachycardia) Ascending aortic dissection (~2005) Pure hypercholesterolemia Adrenal nodule Hiatal hernia Left carotid bruit Cardiac pacemaker in situ (~06/2016) Essential hypertension Pacemaker Sick sinus syndrome Tobacco use HTN (hypertension) Diabetes mellitus, type II Home Medications ?Medication ?Instructions ?Recorded ?Last Taken ?Type atorvastatin 10 mg tablet 10 mg PO DAILY CHOLESTEROL 0 10/17/20 04/19/23 History hydralazine 25 mg tablet 25 mg PO TID BP 10/17/2001/01 History dapagliflozin propanediol 10 mg 10 mg PO DAILY DIABETE S 09/30/21 04/19/23 History tablet (Farxiga) Held on 05/20/23. Instructions: Hold it because of MALIK. multivitamin 1 tab PO DAILY SUPPLEMENT 11/10/21 History gabapentin 300 mg capsule 300 mg PO DAILY NEUROPATHY 1 Unknown History insulin glargine 100 unit/mL (3 10 unit subcut 1200 DI ABETES 11/14/22 04/19/23 History mL) subcutaneous pen (Lantus Solostar U-100 Insulin) metformin 500 mg tablet,extended 500 mg PO BID DIABETE S 11/15/22 04/19/23 History release 24 hr Held on 05/20/23. Instructions: Hold at least 1 week . Discontinue if creatinine clearance less than 30 mill per minute L.acidophil,salivari-Bifido 2 cap PO BID #0 caps 05/19 Unknown Rx bifidum-Strep thermoph 175 mg capsule dicyclomine 10 mg capsule 20 mg (2 x 10 mg) PO Q6H PRN PRN 05/20/23 Unknown Rx abdominal discomfort #0 caps folic acid 1 mg tablet 1 mg PO DAILY@0800 #0 tabs 0 05/20/23 Unknown Rx furosemide 40 mg tablet 40 mg PO DAILY #30 tabs 05/09 03/03 Unknown Rx insulin lispro 100 unit/mL See Protocol subcut ACHS #0 mL 05/20/23 Unknown Rx subcutaneous pen (Humalog KwikPen (U-100) Insulin) metoprolol succinate 25 mg 25 mg PO BID 30 days #60 ta bs 05/20/23 Unknown Rx tablet,extended release 24 hr spironolactone 25 mg tablet 12.5 mg (1/2 x 25 mg) PO D AILY #30 05/20/23 Unknown Rx tabs thiamine HCl (vitamin B1) 100 mg 100 mg PO DAILYCM #0 tabs 05/20/23 Unknown Rx tablet (Vitamin B-1) pantoprazole 40 mg tablet,delayed 40 mg PO BID #60 tab s 06/27/23 Unknown Rx release Allergy/AdvReac Type Severity Reaction Status Date / Time No Known Allergies Allergy Verified 05/09/23 13:37 Family History Father CAD (coronary artery disease) Mother Dementia Surgical History H/O cardiac catheterization History of aortic aneurysm repair (~2017) History of cataract surgery History of hernia repair History of aortic valve replacement with bioprosthetic valve (~2017) H/O aortic valve replacement Social History household members: family housing: house Smoking Status: Current every day smoker tobacco type: cigarettes alcohol intake: current alcohol intake frequency: 0-2 drinks per day details: Reports currently ~ 2 tall boys daily. substance use type: former substance user caffeine: Yes Type: coffee Number of servings: 3 ROS ROS Narrative Review of Systems: Constitutional: Patient denies fever or chills. Eyes: Patient denies changes in vision or discharge from eyes. ENT: Patient denies runny nose, sore throat or ear pain. Resp: Patient denies shortness of breath or cough. CV: Patient denies chest pain, palpitations, heart racing or lower extremity edema. GI: Patient admits to diffuse abdominal pain and distention with ascites and chronic diarrhea with nausea but he denies vomiting. : Patient admits to decreased urine output with foul-smelling urine. MSK: Patient denies arthralgias or myalgias. Skin: Patient denies rash, abscess, wounds or jaundice. Psych: Patient denies symptoms of uncontrolled depression or anxiety. Neuro: Patient denies headache, paresthesias or focal neurologic deficits. Allergy: Patient denies lip swelling, tongue swelling or urticaria. Hematology: Patient denies easy bleeding or easy bruisability. Endocrinology: Patient denies polyuria, polydipsia, polyphagia or heat/cold intolerance. 14 point ROS otherwise negative save for positives noted above in HPI. Vital Signs Vital Signs Vital Signs: 06/25/24 16:17 06/25/24 18:25 06/25/24 20:00 Temperature 98.6 F Temperature Source Oral Pulse Rate 104 H 74 88 Respiratory Rate 18 16 18 Blood Pressure 134/98 H 104/71 Blood Pressure Mean 110 82 Pulse Ox 98 96 94 Oxygen Delivery Method Room Air Room Air Weight Weight: 190 lb 11.198 oz Body Mass Index (BMI) 26.6 Physical Exam Const alert, oriented x3, no apparent distress and average body habitus Constitutional Narrative: Patient appears chronically ill and older than his stated age. General Appearance: cooperative HEENT normocephalic, head/scalp atraumatic and hearing grossly normal bilaterally HEENT Narrative: Mucous membranes dry. Eyes PERRL, EOMs intact bilaterally and conjunctivae normal Neck no lymphadenopathy, supple and no JVD Resp normal respiratory effort, no retractions, no use of accessory muscles and clearto auscultation bilaterally Cardio regular rate and regular rhythm GI GI Narrative: Patient's abdomen is distended with positive fluid wave and tender to palpation diffusely with bruising in abdomen likely from insulin injections. There is no rebound or guarding. Extremity normal to inspection, full ROM and no clubbing, cyanosis or edema Skin Skin Narrative: Patient has bruising over abdomen likely from recent insulin injections. Neuro oriented x3, CN's II-XII intact bilaterally, moves all extremities and no focal motor deficits Sensorium / Orientation: awake, alert, oriented to person, oriented to place andoriented to time Speech: speech normal Psych affect normal Results Medical Records Data Attestation: I reviewed the patient's medical records Lab / Micro Data Attestation: I reviewed the patient's lab results. 06/26/24 05:25 06/25/24 18:07 Labs: Laboratory Results - last 24 hr 06/25/24 17:17: WBC Cancelled, Corrected WBC Cancelled, RBC Cancelled, Hgb Cancelled, Hct Cancelled, MCV Cancelled, MCH Cancelled, MCHC Cancelled, RDW Std Deviation Cancelled, RDW Coeff of Kalpana Cancelled, Plt Count Cancelled, MPV Cancelled, Immature Gran % (Auto) Cancelled, Neut % (Auto) Cancelled, Lymph % (Auto) Cancelled, [place] % (Auto) Cancelled, Eos % (Auto) Cancelled, Baso % (Auto)Cancelled, Absolute Neuts (auto) Cancelled, Absolute Lymphs (auto) Cancelled, Total Counted Cancelled, Neutrophils % (Manual) Cancelled, Band Neutrophils % Cancelled, Lymphocytes % (Manual) Cancelled, Monocytes %(Manual) Cancelled, Eosinophils % (Manual) Cancelled, Basophils % (Manual) Cancelled, Metamyelocytes% Cancelled, Myelocytes % Cancelled, Promyelocytes % Cancelled, Blast Cells % Cancelled, Plasma Cell % (Manual) Cancelled, Other Cells % Cancelled, Nucleated RBC % Cancelled, Nucleated RBCs/100 WBC Cancelled, Differential Comment Cancelled, Diff Path Review Cancelled, Hypersegmented Neuts Cancelled, Atypical Lymphocytes Cancelled, Reactive Lymphocytes Cancelled, Smudge Cells Cancelled, Toxic Granulation Cancelled, Toxic Vacuolation Cancelled, Dohle Bodies Cancelled, Huyen Rods Cancelled, Platelet Estimate Cancelled, Plt Morphology Comment Cancelled, RBC Morphology Cancelled 06/25/24 17:17: RBC Morphology Cancelled, Polychromasia Cancelled, HypochromasiaCancelled, Basophilic Stippling Cancelled, Anisocytosis Cancelled, Microcytosis Cancelled, Macrocytosis Cancelled, Spherocytes Cancelled, Sickle Cells Cancelled, Target Cells Cancelled, Tear Drop Cells Cancelled, Ovalocytes Cancelled, Stomatocytes Cancelled, Whiteside-Morrill Bodies Cancelled, [place] Cells Cancelled, Bite Cells Cancelled, Crenated Cell Cancelled, Acanthocytes (Spur) Cancelled, Rouleaux Cancelled, Schistocytes Cancelled, Sodium Cancelled, Potassium Cancelled, Chloride Cancelled, Carbon Dioxide Cancelled, Anion Gap Cancelled, BUN Cancelled, Creatinine Cancelled, Estim Creat Clear Calc Cancelled, Est GFR (MDRD) Non-Af Cancelled, BUN/Creatinine Ratio Cancelled, Glucose Cancelled, Calcium Cancelled, TotalBilirubin Cancelled, AST Cancelled, ALT Cancelled, Alkaline Phosphatase Cancelled, Total Protein Cancelled, Albumin Cancelled, Globulin Cancelled, Albumin/Globulin Ratio Cancelled, Lipase Cancelled 06/25/24 18:00: Lactic Acid 6.6 H* 06/25/24 18:07: WBC 4.8, RBC 2.80 L, Hgb 10.1 L, Hct 29.8 L, MCV 106.4 H, MCH 36.1 H, MCHC 33.9, RDW Std Deviation 63.9 H, RDW Coeff of Kalpana 16.2 H, Plt Count 124 L, MPV 11.8, Immature Gran % (Auto) 0.200, Neut % (Auto) 65.3, Lymph % (Auto) 22.1, [place] % (Auto) 11.6 H, Eos % (Auto) 0.2, Baso % (Auto)0.6, AbsoluteNeuts (auto) 3.1, Absolute Lymphs (auto) 1.05, Nucleated RBC % 0, Sodium 136, Potassium 2.2 L* 06/25/24 18:07: Potassium 2.1 L*, Chloride 95 L, Carbon Dioxide 24.2, Anion Gap 16 H, BUN 8, Creatinine 1.27 H, Estim Creat Clear Calc 65.06, Est GFR (MDRD) Non-Af 64, BUN/Creatinine Ratio 6.5 L, Glucose 398 H, Calcium 7.7, Magnesium 1.8, Total Bilirubin 0.46, AST 62 H, ALT 32, Alkaline [id number], Total Protein 5.0 L, Albumin 2.5 L, Globulin 2.5, Albumin/Globulin Ratio 1.0, Lipase 6L, b-Hydroxybutyric mmol/L 0.1 06/25/24 19:17: POC Glucose 348 H 06/25/24 19:23: Urine Color Yellow, Urine Clarity Clear, Urine pH 7.0, Ur Specific [place] 1.010, Urine Protein 15 H, Urine Glucose (UA) 1000 H, Urine Ketones Negative, Urine Occult Blood 50 H, UrineNitrite Negative, Urine Bilirubin Negative, Urine Urobilinogen Normal, Ur Leukocyte Esterase Negative, Urine RBC 0 SEEN, Urine WBC 0 SEEN, Ur Squamous Epith Cells 0 SEEN, Urine Bacteria 0 SEEN, UrineMucus 0 SEEN 06/25/24 20:30: POC Glucose 277 H ABG Data ABG results: ABG 06/25/24 19:23 Specimen Type ROSA Sample Site Not entered VBG pH 7.43 H VBG pO2 29 VBG HCO3 29 H VBG Total CO2 30 VBG O2 Sat (Calc) 58 VBG Base Excess 4 H POC Mix VBG pCO2 Pt Tmp 42.7 O2 Delivery Device Room Air Imaging Radiology Impression Abdomen/Pelvis CT 06/25/24 16:43 IMPRESSION: 1. Diffuse small bowel and colonic wall thickening, likely secondary to ascites. 2. Large abdominopelvic ascites. 3. Hepatomegaly and diffuse steatosis. OVERALL FINAL ASSESSMENT: . LI-RADS is not meant to be used in patients <18 years or patients with cirrhosisdue to congenital hepatic fibrosis or due to vascular disorders, because these patients have a lower chance of developing HCC. Reading Location: [facility] Assessment & Plan Assessment/Plan (1) Chronic alcohol abuse: (2) Hypokalemia: (3) Chronic diarrhea: (4) Lactic acidosis: (5) Adverse drug reaction: QUALIFIERS: Encounter type: initial encounter Qualified Code(s): T50.905A - Adverse effect of unspecified drugs, medicaments and biological substances, initial encounter (6) Ascites due to alcoholic cirrhosis: (7) Macrocytosis associated with alcohol: PLAN: Plan 1. Critical Hypokalemia of 2.1 mmol/L present on admission in the setting of Chronic Diarrhea - Give supplemental IV and oral KCl and then recheck level in the AM. Check stool studies in case of infectious etiology and place under enteric precautions plus start empiric IV metronidazole in case of Clostridium difficile colitis. Finally, we will consult gastroenterology for further recommendations with help appreciated in advance. 2. Lactic Acidosis of 6.6 mmol/L present on admission suspected to be due at least in part to Adverse Drug Reaction to metformin complicating #1 - Volume resuscitate and serialize lactate to follow trend with repeat lactic acid down to 4.8 mmol/L after initial round of treatment. 3. Chronic EtOH Abuse with large abdominal pelvic ascites on CT this admission in addition to Macrocytosis with MCV of 106.4 fL present on admission compounding #1 & #2 - EtOH cessation will be strongly encouraged. Start Phenobarbital IV to prevent impending EtOH withdrawal. Check B12 and folate levels with macrocytosis. Give MVI IV while patient NPO. Finally, we will set up diagnostic and therapeutic paracentesis at interventional radiology in a.m. with help appreciated in advance. Check EtOH level. 4. Moderate Thrombocytopenia of 124K present on admission suspected to be due to marrow-suppressionfrom EtOH adding to the medical complexity of #1 - #3 - Check CBC daily to follow trend. 5. Chronic diarrhea which includes an outpatient workup including EGD and colonoscopy in March of this year done by Dr. Vazquez at [facility] for indication of iron deficiency anemia, with patient stating there were no acute findings in the setting of poor colon prep and nonbleeding internal hemorrhoids with repeat colonoscopy recommended in 1 year and EGD revealing erythematous mucosa in the atrium which was biopsied with an irregular Z-line that was biopsied adding to the burden of disease outlined from #1 - #4 - Noted. 6. DM-2; on insulin glargine 10 units sq daily, insulin lispro AC/HS, dapagliflozin and metformin plus diabetic neuropathy; on gabapentin - Keep NPO for now until GI evaluation. Check FSBS q. AC/HS plus lowest-intensity SSI. 7. Chronic Tobacco Abuse - Tobacco cessation will be strongly encouraged with Nicotine patch however to control cravings. 8. Essential hypertension; on metoprolol twice daily, hydralazine 3 times daily, furosemide and spironolactone - Hold home regimen until volume is resuscitated and give prn hydralazine IV for systolic blood pressure > 160 mmHg. 9. Hyperlipidemia; on atorvastatin - Restart statin when patient is cleared fororal intake. Check Lipid Profile. 10. Overweight; with a BMI of 26.6 this admission - Weight loss will be recommended. Check TSH. 11. History of heroin abuse; with patient denying abuse for ~10 years - Check UDS. Apparently no UDS was checked prior to patient being treated with IV morphine in ER. 12. CAD; s/p [place] - Noted. 13. History of mechanical aortic valve replacement (2014) followed by bioprosthetic aortic valve replacement (~2016) - Stable. 14. History of SSS; s/p PPM (2017) - Noted. 15. History of RBBB - Noted. 16. History of NSVT - Noted with no signs of recurrence at this time. 17. History of AAA - Noted. 18. History of thoracic aortic aneurysm with dissection (~2005 & ~2017 at [facility]) - Noted. 19. History of alcoholic hepatitis - Noted. 20. History of chronic pancreatitis - Noted with normal Lipase of 6 present on admission and no signs of pancreatic inflammation on CT this admission. 21. History of seizures; likely due to EtOH withdrawal - Noted. 22. History of MALIK - Noted. 23. GERD with hiatal hernia; on pantoprazole twice daily - Resume pantoprazole IV while NPO. 24. History of hernia; s/p repair - Noted. 25. Generalized anxiety - Give low-dose prn IV lorazepam for breakthrough symptoms. 26. DVT prophylaxis - SCD's only with impending paracentesis and endoscopy. Total time: Approximately (but not less than) 75 minutes. Charges/Coding Visit Charges Inpatient E&M: 81641 Init Hosp L3 06/26/24 0634 Cosigner Signature (if applicable): CC: VEHICLE MODIFICATION TECHNICIAN-C Marianna Wagner; Dr. Conrado Pro, DO~ Signed [facility]05-19-2025 Discharge summary Author Rolan Romero [facility] Note Date/Time June 25, 2024 11:17 pm [facility] Medical Records Department [address] [place] [address] Emergency Department Summary 06/25/24 MR#: [id number] Acct: [id number] Name: ANALILIA MELENDREZ Rep #:[id number] : 1960 63 From: Rolan stock DO PCP: ALAN Wilde Status:ADM I N Location: [place] [address] HPI History of Present Illness Chief Complaint: Abd Pain Narrative Narrative: Chief complaint and HPI: Abdominal pain, distention, constipation. 63-year-old male with past medical history of DM, aortic valve replacement, HTN, chronic alcohol abuse who presents for evaluation of abdominal pain, distention, constipation. History taken by patient as well as medical record. Patient has chronic history of abdominal pain. He has been seen in our emergency departmentmultiple times for this. He states that for the past several months he has beenhaving diarrhea in which he has had outpatient workup including EGD and colonoscopy in May. He states that there was no acute findings. Patient states 4 days ago his diarrhea stopped and he became constipated. He endorses diffuse abdominal pain and distention. Endorses decreased urine output and foul-smelling urine. Associated symptom is decreased p.o. intake. He denies any fever, chills, shortness of breath, chest pain, vomiting. Still endorses alcohol abuse. Review of systems: See HPI Medications: As listed on the chart Allergies: As listed on the chart PFSH: Per chart Vital signs: As listed on the chart. Reviewed. Physical exam: Gen: A&O x3, NAD Head: Normocephalic, atraumatic Eyes: No sclera icterus, conjunctiva clear ENT: Dry mucous membranes Neck: Trachea midline, No JVD CV: RRR, no murmurs, no peripheral edema Resp: Lungs CTA BL, no w/r/c GI: Abd soft, distended, tender to palpation diffusely, no rebound or rigidity : No CVA tenderness Musc: Full ROM, no deformity Skin: Warm, dry, multiple old ecchymosis on the body especially the abdomen frominsulin injections Neuro: Alert, oriented, grossly intact, sensation intact Psych: Cooperative, appropriate mood and affect [facility] Medical History MALIK (acute kidney injury) Seizures Alcoholic hepatitis Chronic pancreatitis Gastric wall thickening Alcohol dependence Abdominal ascites Anxiety Diabetes Pancreatitis Myocardial infarct Pacemaker AAA (abdominal aortic aneurysm) Admitted to alcohol detoxification center Alcohol abuse Hx of hypercholesterolemia History of diabetes mellitus Alcohol dependence Substance abuse Smoker Alcoholism Right bundle branch block (RBBB) Non-sustained ventricular tachycardia Thoracic aortic aneurysm SVT (supraventricular tachycardia) Ascending aortic dissection (~2005) Pure hypercholesterolemia Adrenal nodule Hiatal hernia Left carotid bruit Cardiac pacemaker in situ (~06/2016) Essential hypertension Pacemaker Sick sinus syndrome Tobacco use HTN (hypertension) Diabetes mellitus, type II Home Medications ?Medication ?Instructions ?Recorded ?Last Taken ?Type atorvastatin 10 mg tablet 10 mg PO DAILY CHOLESTEROL 0 10/17/20 04/19/23 History hydralazine 25 mg tablet 25 mg PO TID BP 10/17/2001/01 History dapagliflozin propanediol 10 mg 10 mg PO DAILY DIABETE S 09/30/21 04/19/23 History tablet (Farxiga) Held on 05/20/23. Instructions: Hold it because of MALIK. multivitamin 1 tab PO DAILY SUPPLEMENT 11/10/21 History gabapentin 300 mg capsule 300 mg PO DAILY NEUROPATHY 1 Unknown History insulin glargine 100 unit/mL (3 10 unit subcut 1200 DI ABETES 11/14/22 04/19/23 History mL) subcutaneous pen (Lantus Solostar U-100 Insulin) metformin 500 mg tablet,extended 500 mg PO BID DIABETE S 11/15/22 04/19/23 History release 24 hr Held on 05/20/23. Instructions: Hold at least 1 week . Discontinue if creatinine clearance less than 30 mill per minute L.acidophil,salivari-Bifido 2 cap PO BID #0 caps 05/19 Unknown Rx bifidum-Strep thermoph 175 mg capsule dicyclomine 10 mg capsule 20 mg (2 x 10 mg) PO Q6H PRN PRN 05/20/23 Unknown Rx abdominal discomfort #0 caps folic acid 1 mg tablet 1 mg PO DAILY@0800 #0 tabs 0 05/20/23 Unknown Rx furosemide 40 mg tablet 40 mg PO DAILY #30 tabs 05/09 03/03 Unknown Rx insulin lispro 100 unit/mL See Protocol subcut ACHS #0 mL 05/20/23 Unknown Rx subcutaneous pen (Humalog KwikPen (U-100) Insulin) metoprolol succinate 25 mg 25 mg PO BID 30 days #60 ta bs 05/20/23 Unknown Rx tablet,extended release 24 hr spironolactone 25 mg tablet 12.5 mg (1/2 x 25 mg) PO D AILY #30 05/20/23 Unknown Rx tabs thiamine HCl (vitamin B1) 100 mg 100 mg PO DAILYCM #0 tabs 05/20/23 Unknown Rx tablet (Vitamin B-1) pantoprazole 40 mg tablet,delayed 40 mg PO BID #60 tab s 06/27/23 Unknown Rx release Allergy/AdvReac Type Severity Reaction Status Date / Time No Known Allergies Allergy Verified 05/09/23 13:37 Family History Father CAD (coronary artery disease) Mother Dementia Surgical History H/O cardiac catheterization History of aortic aneurysm repair (~2016) History of cataract surgery History of hernia repair History of aortic valve replacement with bioprosthetic valve (~2016) H/O aortic valve replacement Social History household members: family housing: house Smoking Status: Current every day smoker tobacco type: cigarettes alcohol intake: current alcohol intake frequency: 0-2 drinks per day details: Reports currently ~ 2 tall boys daily. substance use type: former substance user caffeine: Yes Type: coffee Number of servings: 3 EXAM Physical Exam Const Vital Signs: 06/25/24 16:17 06/25/24 18:25 06/25/24 20:00 Temperature 98.6 F Temperature Source Oral Pulse Rate 104 H 74 88 Respiratory Rate 18 16 18 Blood Pressure 134/98 H 104/71 Blood Pressure Mean 110 82 Pulse Ox 98 96 94 Oxygen Delivery Method Room Air Room Air 06/25/24 21:38 06/25/24 22:00 Temperature 98.5 F Temperature Source Pulse Rate 106 H 118 H Respiratory Rate 15 20 H Blood Pressure 124/90 H 138/86 H Blood Pressure Mean 101 103 Pulse Ox 94 94 Oxygen Delivery Method Room Air MDM MDM MDM Narrative Medical decision making narrative: 63-year-old male with past medical history of DM, aortic valve replacement, HTN,chronic alcohol abuse who presents for evaluation of abdominal pain, distention,constipation. Prior to this had months of diarrhea. States he recently just had a EGD and colonoscopy done at [facility]. Will Clinisync for these results. Differential diagnosis includes but is not limited to constipation, colitis, ascites, electrolyte abnormality, UTI, urinary retention, pancreatitis. NS bolus, Zofran, morphine ordered for symptoms. Bladder scan was 187. On chart review, patient had a colonoscopy in March not May with Dr. Vazquez. Indication was for iron deficiency anemia. Preparation of the colon was unsatisfactory. There was nonbleeding internal hemorrhoids. No specimens were collected. Repeat colonoscopy within 1 year. He had an EGD performed at the same time. There was erythematous mucosa in the atrium which was biopsied. Z-line that was irregular that was biopsied. CBC without leukocytosis. Patienthas stable anemia and thrombocytopenia. CMP shows hypokalemia of 2.1, hypochloremia of 95, and baseline renal insufficiency with creatinine of 1.27. Patient has hyperglycemia of 398 with an anion gap of 16. He has a lactic acid of 6.6. Patient has a lactic acidosis in the past. I suspect that this is secondary to his alcohol use. Less likely DKA however will add on VBG and beta hydroxybutyrate. Also cannot rule out infectious etiology at this time as CT abdomen pelvis is pending however patient does not have leukocytosis. His abdominal exam is not consistent with ischemic colitis. His pain is currently controlled with only 2 mg of morphine. On reviewing imaging myself, there appears to be a lot of ascites therefore will be judicial with fluids. Will repeat potassium. Add on magnesium. Will obtain EKG due to electrolyte abnormalities. EKG reviewed see below. Repeat potassium 2.1. IV potassium ordered. Will hold off on p.o. given patient's complaint. Magnesium unremarkable. Beta hydroxybutyrate negative. VBG without acidosis. Patient not in DKA. IV insulin ordered. Repeat glucose 277 after insulin. UA negativefor UTI. Positive for glucose but no ketones. Patient has alcoholic transaminitis with an AST of 62. This is improved from previous labs. His albumin is low is 2.5. Lipase unremarkable. CT abdomen pelvis shows diffuse small bowel colonic wall thickening, likely secondary to ascites. He has large abdominal pelvic ascites. Hepatomegaly and diffuse steatosis. Patient's abdominal pain and distention is likely due to ascites. He has no history of ascites in the past with no diagnosis of cirrhosis. I do think he would benefitfrom a paracentesis. He will require admission given his electrolyte abnormalities. Patient updated of all the results and the plan and confirmed understanding. I spoke with hospitalist service, Dr. Butler. He accepted admission. He had concerns of patient's lactic acidosis which I understand. Patient not presenting like ischemic colitis and pain is currently controlled. I did offer to call general surgery given patient does have diffuse small bowel and colonic wall thickening however he was okay with foregoing this at this time. Repeat lactic acid pending in which she will follow-up on. EKG: Interpreted by me/EM physician: EKG shows sinus tachycardia with PACs. Known right bundle branch block. Left anterior fascicular block. Heart rate 103. Impression: 1. Abdominal ascites, concern for new diagnosis of cirrhosis 2. Severe hypokalemia 3. Hyperglycemia with history of DM 4. Chronic anemia 5. Chronic thrombocytopenia 6. Alcoholic transaminitis 7. Lactic acidosis Lab Data Labs: Laboratory Results - last 24 hr 06/25/24 06/25/24 06/25/24 17:17 17:17 18:00 WBC Cancelled Corrected WBC Cancelled RBC Cancelled Hgb Cancelled Hct Cancelled MCV Cancelled MCH Cancelled MCHC Cancelled RDW Std Deviation Cancelled RDW Coeff of [place] Cancelled Plt Count Cancelled MPV Cancelled Immature Gran % (Auto) Cancelled Neut % (Auto) Cancelled Lymph % (Auto) Cancelled [place] % (Auto) Cancelled Eos % (Auto) Cancelled Baso % (Auto) Cancelled Absolute Neuts (auto) Cancelled Absolute Lymphs (auto) Cancelled Total Counted Cancelled Neutrophils % (Manual) Cancelled Band Neutrophils % Cancelled Lymphocytes % (Manual) Cancelled Monocytes % (Manual) Cancelled Eosinophils % (Manual) Cancelled Basophils % (Manual) Cancelled Metamyelocytes % Cancelled Myelocytes % Cancelled Promyelocytes % Cancelled Blast Cells % Cancelled Plasma Cell % (Manual) Cancelled Other Cells % Cancelled Nucleated RBC % Cancelled Nucleated RBCs/100 WBC Cancelled Differential Comment Cancelled Diff Path Review Cancelled Hypersegmented Neuts Cancelled Atypical Lymphocytes Cancelled Reactive Lymphocytes Cancelled Smudge Cells Cancelled Toxic Granulation Cancelled Toxic Vacuolation Cancelled Dohle Bodies Cancelled [place] Rods Cancelled Platelet Estimate Cancelled Plt Morphology Comment Cancelled RBC Morphology Cancelled Cancelled Polychromasia Cancelled Hypochromasia Cancelled Basophilic Stippling Cancelled Anisocytosis Cancelled Microcytosis Cancelled Macrocytosis Cancelled Spherocytes Cancelled Sickle Cells Cancelled Target Cells Cancelled Tear Drop Cells Cancelled Ovalocytes Cancelled Stomatocytes Cancelled [place] Bodies Cancelled [place] Cells Cancelled Bite Cells Cancelled Crenated Cell Cancelled Acanthocytes (Spur) Cancelled Rouleaux Cancelled Schistocytes Cancelled Sodium Cancelled Potassium Cancelled Chloride Cancelled Carbon Dioxide Cancelled Anion Gap Cancelled BUN Cancelled Creatinine Cancelled Estim Creat Clear Calc Cancelled Est GFR (MDRD) Non-Af Cancelled BUN/Creatinine Ratio Cancelled Glucose Cancelled Lactic Acid 6.6 H* Calcium Cancelled Magnesium Total Bilirubin Cancelled AST Cancelled ALT Cancelled Alkaline Phosphatase Cancelled Total Protein Cancelled Albumin Cancelled Globulin Cancelled Albumin/Globulin Ratio Cancelled Lipase Cancelled b-Hydroxybutyric mmol/L Urine Color Urine Clarity Urine pH Ur Specific [place] Urine Protein Urine Glucose (UA) Urine Ketones Urine Occult Blood Urine Nitrite Urine Bilirubin Urine Urobilinogen Ur Leukocyte Esterase Urine RBC Urine WBC Ur Squamous Epith Cells Urine Bacteria Urine Mucus POC Glucose 06/25/24 06/25/24 06/25/24 18:07 18:07 19:17 WBC 4.8 Corrected WBC RBC 2.80 L Hgb 10.1 L Hct 29.8 L MCV 106.4 H MCH 36.1 H MCHC 33.9 RDW Std Deviation 63.9 H RDW Coeff of [place] 16.2 H Plt Count 124 L MPV 11.8 Immature Gran % (Auto) 0.200 Neut % (Auto) 65.3 Lymph % (Auto) 22.1 [place] % (Auto) 11.6 H Eos % (Auto) 0.2 Baso % (Auto) 0.6 Absolute Neuts (auto) 3.1 Absolute Lymphs (auto) 1.05 Total Counted Neutrophils % (Manual) Band Neutrophils % Lymphocytes % (Manual) Monocytes % (Manual) Eosinophils % (Manual) Basophils % (Manual) Metamyelocytes % Myelocytes % Promyelocytes % Blast Cells % Plasma Cell % (Manual) Other Cells % Nucleated RBC % 0 Nucleated RBCs/100 WBC Differential Comment Diff Path Review Hypersegmented Neuts Atypical Lymphocytes Reactive Lymphocytes Smudge Cells Toxic Granulation Toxic Vacuolation Dohle Bodies [place] Rods Platelet Estimate Plt Morphology Comment RBC Morphology Polychromasia Hypochromasia Basophilic Stippling Anisocytosis Microcytosis Macrocytosis Spherocytes Sickle Cells Target Cells Tear Drop Cells Ovalocytes Stomatocytes [place] Bodies Kristofer Cells Bite Cells Crenated Cell Acanthocytes (Spur) Rouleaux Schistocytes Sodium 136 Potassium 2.2 L* 2.1 L* Chloride 95 L Carbon Dioxide 24.2 Anion Gap 16 H BUN 8 Creatinine 1.27 H Estim Creat Clear Calc 65.06 Est GFR (MDRD) Non-Af 64 BUN/Creatinine Ratio 6.5 L Glucose 398 H Lactic Acid Calcium 7.7 Magnesium 1.8 Total Bilirubin 0.46 AST 62 H ALT 32 Alkaline Phosphatase 125 Total Protein 5.0 L Albumin 2.5 L Globulin 2.5 Albumin/Globulin Ratio 1.0 Lipase 6 L b-Hydroxybutyric mmol/L 0.1 Urine Color Urine Clarity Urine pH Ur Specific [place] Urine Protein Urine Glucose (UA) Urine Ketones Urine Occult Blood Urine Nitrite Urine Bilirubin Urine Urobilinogen Ur Leukocyte Esterase Urine RBC Urine WBC Ur Squamous Epith Cells Urine Bacteria Urine Mucus POC Glucose 348 H 06/25/24 06/25/24 19:23 20:30 WBC Corrected WBC RBC Hgb Hct MCV MCH MCHC RDW Std Deviation RDW Coeff of [place] Plt Count MPV Immature Gran % (Auto) Neut % (Auto) Lymph % (Auto) [place] % (Auto) Eos % (Auto) Baso % (Auto) Absolute Neuts (auto) Absolute Lymphs (auto) Total Counted Neutrophils % (Manual) Band Neutrophils % Lymphocytes % (Manual) Monocytes % (Manual) Eosinophils % (Manual) Basophils % (Manual) Metamyelocytes % Myelocytes % Promyelocytes % Blast Cells % Plasma Cell % (Manual) Other Cells % Nucleated RBC % Nucleated RBCs/100 WBC Differential Comment Diff Path Review Hypersegmented Neuts Atypical Lymphocytes Reactive Lymphocytes Smudge Cells Toxic Granulation Toxic Vacuolation Dohle Bodies [place] Rods Platelet Estimate Plt Morphology Comment RBC Morphology Polychromasia Hypochromasia Basophilic Stippling Anisocytosis Microcytosis Macrocytosis Spherocytes Sickle Cells Target Cells Tear Drop Cells Ovalocytes Stomatocytes [place] Bodies [place] Cells Bite Cells Crenated Cell Acanthocytes (Spur) Rouleaux Schistocytes Sodium Potassium Chloride Carbon Dioxide Anion Gap BUN Creatinine Estim Creat Clear Calc Est GFR (MDRD) Non-Af BUN/Creatinine Ratio Glucose Lactic Acid Calcium Magnesium Total Bilirubin AST ALT Alkaline Phosphatase Total Protein Albumin Globulin Albumin/Globulin Ratio Lipase b-Hydroxybutyric mmol/L Urine Color Yellow Urine Clarity Clear Urine pH 7.0 Ur Specific [place] 1.010 Urine Protein 15 H Urine Glucose (UA) 1000 H Urine Ketones Negative Urine Occult Blood 50 H Urine Nitrite Negative Urine Bilirubin Negative Urine Urobilinogen Normal Ur Leukocyte Esterase Negative Urine RBC 0 SEEN Urine WBC 0 SEEN Ur Squamous Epith Cells 0 SEEN Urine Bacteria 0 SEEN Urine Mucus 0 SEEN POC Glucose 277 H ABG Data ABG results: ABG 06/25/24 19:23 Specimen Type ROSA Sample Site Not entered VBG pH 7.43 H VBG pO2 29 VBG HCO3 29 H VBG Total CO2 30 VBG O2 Sat (Calc) 58 VBG Base Excess 4 H POC Mix VBG pCO2 Pt Tmp 42.7 O2 Delivery Device Room Air Radiography Diagnostic Testing: Clinical Impression(s) from Imaging Studies Abdomen/Pelvis CT 06/25/24 16:43 IMPRESSION: 1. Diffuse small bowel and colonic wall thickening, likely secondary to ascites. 2. Large abdominopelvic ascites. 3. Hepatomegaly and diffuse steatosis. OVERALL FINAL ASSESSMENT: . LI-RADS is not meant to be used in patients <18 years or patients with cirrhosisdue to congenital hepatic fibrosis or due to vascular disorders, because these patients have a lower chance of developing HCC. Reading [facility] Triage Chief Complaint: Abd Pain ED Provider: Rolan Romero Dx/Rx/DC Orders Prescriptions: No Action atorvastatin 10 mg tablet 10 mg PO DAILY hydralazine 25 mg tablet 25 mg PO TID dapagliflozin propanediol [Farxiga] 10 mg Tablet 10 mg PO DAILY multivitamin Tablet 1 tab PO DAILY insulin glargine [Lantus Solostar U-100 Insulin] 100 unit/mL (3 mL) insulin pen 10 unit subcut 1200 Patient Comments: pt stated he has not taken lantus for several days gabapentin 300 mg Capsule 300 mg PO DAILY Patient Comments: PT STATES THEY THINK THEY ARE ON THIS MEDICATION. metformin 500 mg tablet extended release 24 hr 500 mg PO BID Patient Comments: PT STATES THEY TAKE THIS ONCE DAILY. pantoprazole 40 mg tablet,delayed release (DR/EC) 40 mg PO BID Qty: 60 0RF thiamine HCl (vitamin B1) [Vitamin B-1] 100 mg Tablet 100 mg PO DAILYCM Qty: 0 0RF L.acidoph,saliva-B.bif-S.therm 175 mg Capsule 2 cap PO BID Qty: 0 0RF folic acid 1 mg Tablet 1 mg PO DAILY@0800 Qty: 0 0RF insulin lispro [Humalog KwikPen Insulin] 100 unit/mL Insulin Pen See Protocol subcut ACHS Qty: 0 0RF Protocol: 4. Sliding Scale Insulin High-Med Dosing Condition: 150-199 mg/dl = 2 units Condition: 200-259 mg/dl = 4 units Condition: 260-324 mg/dl = 6 units Condition: 325-374 mg/dl = 8 units Condition: 375-409 mg/dl = 10 units Condition: 410-449 mg/dl = 11 units Condition: Greater than 449 call physician Protocol Text: - Use for Total Daily Dose of Insulin 56-80 units - Patient who are insulin resistant or septic HIGH MEDIUM DOSING ALGORITHM furosemide 40 mg tablet 40 mg PO DAILY Qty: 30 0RF spironolactone 25 mg tablet 12.5 mg PO DAILY Qty: 30 0RF Rx Instructions: Hold if serum potassium more than 5.1. dicyclomine 10 mg Capsule 20 mg PO Q6H PRN PRN (Reason: abdominal discomfort) Qty: 0 0RF metoprolol succinate 25 mg Tablet Extended Release 24 Hr 25 mg PO BID 30 Days Qty: 60 0RF Primary Care Provider: Marianna Wagner NP Referrals: Marianna Wagner VEHICLE MODIFICATION TECHNICIAN, VEHICLE MODIFICATION TECHNICIAN-C [Primary Care Provider] - Print Language: Pakistani What to do if you have Problems For any increased pain, shortness of breath, bleeding, nausea or vomiting, chestpain, or any unexpected problems, contact your Primary Care Provider. Call [facility] ([phone]) or report to the closest Emergency Room. Call 911 if necessary. 06/25/24 3384 <Electronically signed by Rolan Romero DO> Cosigner Signature (if applicable): CC: VEHICLE MODIFICATION TECHNICIAN-C Marianna Wagner ~ Signed [facility] Work Phone: 1([phone]) 133-151905-19-2025 Evaluation note* Diagnosis Onset Date Resolution Status Admit Date Adverse drug reaction acute June 25, 2024 10:15pm Ascites due to alcoholic cirrhosis acute June 25, 2024 1 0:15pm Hypokalemia acute June 25 10:15pm Lactic acidosis acute June 25, 2024 10:15pm Macrocytosis associated with alcohol acute June 25, 2024 1 0:15pm Thrombocytopenia acute June 10:15pm Chronic alcohol abuse chronic June 25, 2024 10:15pm Chronic diarrhea chronic June 10:15pm Chronic pancreatitis chronic June 25, 2024 10:15pm [facility] Work Phone: [phone] 710-901105-19-2025 Evaluation note* Diagnosis Onset Date Resolution Status Admit Date Adverse drug reaction resolved June 25, 2024 10:15pm Hypokalemia resolved June 25 10:15pm Lactic acidosis resolved June 25, 2024 10:15pm Ascites due to alcoholic cirrhosis inactive June 25, 2024 10:15pm Chronic alcohol abuse inactive June 25, 2024 10:15pm Chronic diarrhea inactive June 10:15pm Chronic pancreatitis inactive June 25, 2024 10:15pm Macrocytosis associated with alcohol inactive June 25, 2024 10:15pm Thrombocytopenia inactive June 10:15pm Abdominal ascites acute June 7:47pm Acute HFrEF (heart failure w ith reduced ejection fraction) acute June 092024 7:47pm MALIK (acute kidney injury) acute June 30, 2024 7:47pm Conjunctivitis acute June 30, 2024 7:47pm Elevated troponin acute June 7:47pm Hypoxia acute June 30, 2024 7:47pm Malnutrition acute June 30 7:47pm Medically noncompliant acute Ma y 2024 7:47pm Pancytopenia acute June 30 7:47pm Pleural effusion acute June 7:47pm Respiratory insufficiency acute June 30, 2024 7:47pm Volume overload acute June 30, 2024 7:47pm Ascites due to alcoholic cirrhosis inactive June 30, 2024 7 :47pm Chronic pancreatitis inactive June 30, 2024 7:47pm Thrombocytopenia inactive June 7:47pm [facility] Work Phone: 1([phone]) 874-172105-19-2025 Evaluation note* Diagnosis Onset Date Resolution Status Admit Date Adverse drug reaction resolved June 25, 2024 10:15pm Hypokalemia resolved June 25 10:15pm Lactic acidosis resolved June 25, 2024 10:15pm Ascites due to alcoholic cirrhosis inactive June 25, 2024 10:15pm Chronic alcohol abuse inactive June 25, 2024 10:15pm Chronic diarrhea inactive June 10:15pm Chronic pancreatitis inactive June 25, 2024 10:15pm Macrocytosis associated with alcohol inactive June 25, 2024 10:15pm Thrombocytopenia inactive June 10:15pm Acute HFrEF (heart failure w ith reduced ejection fraction) acute June 092024 7:47pm Abdominal ascites resolved June 7:47pm MALIK (acute kidney injury) resolved June 30, 2024 7:47pm Conjunctivitis resolved June 30, 2024 7:47pm Elevated troponin resolved June 7:47pm Hypoxia resolved June 30, 2024 7:47pm Pleural effusion resolved June 7:47pm Respiratory insufficiency resolved June 30, 2024 7:47pm Volume overload resolved June 30, 2024 7:47pm Ascites due to alcoholic cirrhosis inactive June 30, 2024 7 :47pm Chronic pancreatitis inactive June 30, 2024 7:47pm Malnutrition inactive June 30 7:47pm Medically noncompliant inactive Florentino pemberton 2024 7:47pm Pancytopenia inactive June 30 7:47pm Thrombocytopenia inactive June 7:47pm Abdominal pain acute July 11, 2024 2:06pm Headache acute July 11, 2024 2:06pm Nausea acute July 11, 2024 2:06pm Nausea & vomiting acute July 2:06pm Partial bowel obstruction acute July 11, 2024 2:06pm Suicidal ideation acute July 2:06pm [facility] Work Phone: 1([phone]) 406-553105-19-2025 Evaluation note* Diagnosis Onset Date Resolution Status Admit Date Adverse drug reaction resolved June 25, 2024 10:15pm Hypokalemia resolved June 25 10:15pm Lactic acidosis resolved June 25, 2024 10:15pm Ascites due to alcoholic cirrhosis inactive June 25, 2024 10:15pm Chronic alcohol abuse inactive June 25, 2024 10:15pm Chronic diarrhea inactive June 10:15pm Chronic pancreatitis inactive June 25, 2024 10:15pm Macrocytosis associated with alcohol inactive June 25, 2024 10:15pm Thrombocytopenia inactive June 10:15pm Abdominal ascites acute June 7:47pm Acute HFrEF (heart failure w ith reduced ejection fraction) acute June 092024 7:47pm MALIK (acute kidney injury) acute June 30, 2024 7:47pm Conjunctivitis acute June 30, 2024 7:47pm Elevated troponin acute June 7:47pm Hypoxia acute June 30, 2024 7:47pm Malnutrition acute June 30 7:47pm Medically noncompliant acute Florentino pemberton 2024 7:47pm Pancytopenia acute June 30 7:47pm Pleural effusion acute June 7:47pm Respiratory insufficiency acute June 30, 2024 7:47pm Volume overload acute June 30, 2024 7:47pm Ascites due to alcoholic cirrhosis inactive June 30, 2024 7 :47pm Chronic pancreatitis inactive June 30, 2024 7:47pm Thrombocytopenia inactive June 7:47pm Abdominal pain acute July 11, 2024 2:06pm Headache acute July 11, 2024 2:06pm Nausea acute July 11, 2024 2:06pm Nausea & vomiting acute July 2:06pm Partial bowel obstruction acute July 11, 2024 2:06pm Suicidal ideation acute July 2:06pm [facility] Work Phone: 1([phone]) 881-295205-19-2025 Evaluation note* Diagnosis Onset Date Resolution Status Admit Date Adverse drug reaction resolved June 25, 2024 10:15pm Hypokalemia resolved June 25 10:15pm Lactic acidosis resolved June 25, 2024 10:15pm Ascites due to alcoholic cirrhosis inactive June 25, 2024 10:15pm Chronic alcohol abuse inactive June 25, 2024 10:15pm Chronic diarrhea inactive June 10:15pm Chronic pancreatitis inactive June 25, 2024 10:15pm Macrocytosis associated with alcohol inactive June 25, 2024 10:15pm Thrombocytopenia inactive June 10:15pm Acute HFrEF (heart failure w ith reduced ejection fraction) acute June 092024 7:47pm Abdominal ascites resolved June 7:47pm MALIK (acute kidney injury) resolved June 30, 2024 7:47pm Conjunctivitis resolved June 30, 2024 7:47pm Elevated troponin resolved June 7:47pm Hypoxia resolved June 30, 2024 7:47pm Pleural effusion resolved June 7:47pm Respiratory insufficiency resolved June 30, 2024 7:47pm Volume overload resolved June 30, 2024 7:47pm Ascites due to alcoholic cirrhosis inactive June 30, 2024 7 :47pm Chronic pancreatitis inactive June 30, 2024 7:47pm Malnutrition inactive June 30 7:47pm Medically noncompliant inactive Ma y 2024 7:47pm Pancytopenia inactive June 30 7:47pm Thrombocytopenia inactive June 7:47pm Abdominal pain resolved July 11, 2024 2:06pm Headache resolved July 11, 2024 2:06pm Nausea resolved July 11, 2024 2:06pm Nausea & vomiting resolved July 2:06pm Partial bowel obstruction resolved July 11, 2024 2:06pm Suicidal ideation resolved July 2:06pm [facility] Work Phone: 1([phone]) 420-985505-19-2025 Evaluation note* Diagnosis Onset Date Resolution Status Admit Date Adverse drug reaction resolved June 25, 2024 10:15pm Hypokalemia resolved June 25 10:15pm Lactic acidosis resolved June 25, 2024 10:15pm Ascites due to alcoholic cirrhosis inactive June 25, 2024 10:15pm Chronic alcohol abuse inactive June 25, 2024 10:15pm Chronic diarrhea inactive June 10:15pm Chronic pancreatitis inactive June 25, 2024 10:15pm Macrocytosis associated with alcohol inactive June 25, 2024 10:15pm Thrombocytopenia inactive June 10:15pm Acute HFrEF (heart failure w ith reduced ejection fraction) acute June 092024 7:47pm Abdominal ascites resolved June 7:47pm MALIK (acute kidney injury) resolved June 30, 2024 7:47pm Conjunctivitis resolved June 30, 2024 7:47pm Elevated troponin resolved June 7:47pm Hypoxia resolved June 30, 2024 7:47pm Pleural effusion resolved June 7:47pm Respiratory insufficiency resolved June 30, 2024 7:47pm Volume overload resolved June 30, 2024 7:47pm Ascites due to alcoholic cirrhosis inactive June 30, 2024 7 :47pm Chronic pancreatitis inactive June 30, 2024 7:47pm Malnutrition inactive June 30 7:47pm Medically noncompliant inactive Ma y 2024 7:47pm Pancytopenia inactive June 30 7:47pm Thrombocytopenia inactive June 7:47pm Abdominal pain resolved July 11, 2024 2:06pm Headache resolved July 11, 2024 2:06pm Nausea resolved July 11, 2024 2:06pm Nausea & vomiting resolved July 2:06pm Partial bowel obstruction resolved July 11, 2024 2:06pm Suicidal ideation resolved July 2:06pm Acute HFrEF (heart failure w ith reduced ejection fraction) acute August 01, 2024 8:44pm H/O aortic valve replacement acute August 01, 2024 8:44pm History of aortic aneurysm repair [place] August 01, 2024 8:44pm Hypoxia acute August 01 8:44pm Elevated troponin resolved August 012024 8:44pm [facility] Work Phone: 1([phone]) 720-382405-18-2025 Discharge summary [facility] Medical Records Department [address] [place] [address] Emergency Department Summary 06/25/24 MR#: [id number] Acct: [id number] Name: ANALILIA MELENDREZ Rep #:[id number] : 1960 63 From: Rolan stock DO PCP: ALAN Wilde Status:ADM I N Location: [place] [address] HPI History of Present Illness Chief Complaint: Abd Pain Narrative Narrative: Chief complaint and HPI: Abdominal pain, distention, constipation. 63-year-old male with past medical history of DM, aortic valve replacement, HTN, chronic alcohol abuse who presents for evaluation of abdominal pain, distention, constipation. History taken by patient as well as medical record. Patient has chronic history of abdominal pain. He has been seen in our emergency departmentmultiple times for this. He states that for the past several months he has beenhaving diarrhea in which he has had outpatient workup including EGD and colonoscopy in May. He states that there was no acute findings. Patient states 4 days ago his diarrhea stopped and he became constipated. He endorses diffuse abdominal pain and distention. Endorses decreased urine output and foul-smelling urine. Associated symptom is decreased p.o. intake. He denies any fever, chills, shortness of breath, chest pain, vomiting. Still endorses alcohol abuse. Review of systems: See HPI Medications: As listed on the chart Allergies: As listed on the chart PFSH: Per chart Vital signs: As listed on the chart. Reviewed. Physical exam: Gen: A&O x3, NAD Head: Normocephalic, atraumatic Eyes: No sclera icterus, conjunctiva clear ENT: Dry mucous membranes Neck: Trachea midline, No JVD CV: RRR, no murmurs, no peripheral edema Resp: Lungs CTA BL, no w/r/c GI: Abd soft, distended, tender to palpation diffusely, no rebound or rigidity : No CVA tenderness Musc: Full ROM, no deformity Skin: Warm, dry, multiple old ecchymosis on the body especially the abdomen frominsulin injections Neuro: Alert, oriented, grossly intact, sensation intact Psych: Cooperative, appropriate mood and affect PFSH [facility] Medical History MALIK (acute kidney injury) Seizures Alcoholic hepatitis Chronic pancreatitis Gastric wall thickening Alcohol dependence Abdominal ascites Anxiety Diabetes Pancreatitis Myocardial infarct Pacemaker AAA (abdominal aortic aneurysm) Admitted to alcohol detoxification center Alcohol abuse Hx of hypercholesterolemia History of diabetes mellitus Alcohol dependence Substance abuse Smoker Alcoholism Right bundle branch block (RBBB) Non-sustained ventricular tachycardia Thoracic aortic aneurysm SVT (supraventricular tachycardia) Ascending aortic dissection (~2005) Pure hypercholesterolemia Adrenal nodule Hiatal hernia Left carotid bruit Cardiac pacemaker in situ (~06/2016) Essential hypertension Pacemaker Sick sinus syndrome Tobacco use HTN (hypertension) Diabetes mellitus, type II Home Medications ?Medication ?Instructions ?Recorded ?Last Taken ?Type atorvastatin 10 mg tablet 10 mg PO DAILY CHOLESTEROL 0 10/17/20 04/19/23 History hydralazine 25 mg tablet 25 mg PO TID BP 10/17/2001/01 History dapagliflozin propanediol 10 mg 10 mg PO DAILY DIABETE S 09/30/21 04/19/23 History tablet (Farxiga) Held on 05/20/23. Instructions: Hold it because of MALIK. multivitamin 1 tab PO DAILY SUPPLEMENT 11/10/21 History gabapentin 300 mg capsule 300 mg PO DAILY NEUROPATHY 1 Unknown History insulin glargine 100 unit/mL (3 10 unit subcut 1200 DI ABETES 11/14/22 04/19/23 History mL) subcutaneous pen (Lantus Solostar U-100 Insulin) metformin 500 mg tablet,extended 500 mg PO BID DIABETE S 11/15/22 04/19/23 History release 24 hr Held on 05/20/23. Instructions: Hold at least 1 week . Discontinue if creatinine clearance less than 30 mill per minute L.acidophil,salivari-Bifido 2 cap PO BID #0 caps 05/19 Unknown Rx bifidum-Strep thermoph 175 mg capsule dicyclomine 10 mg capsule 20 mg (2 x 10 mg) PO Q6H PRN PRN 05/20/23 Unknown Rx abdominal discomfort #0 caps folic acid 1 mg tablet 1 mg PO DAILY@0800 #0 tabs 0 05/20/23 Unknown Rx furosemide 40 mg tablet 40 mg PO DAILY #30 tabs 05/09 03/03 Unknown Rx insulin lispro 100 unit/mL See Protocol subcut ACHS #0 mL 05/20/23 Unknown Rx subcutaneous pen (Humalog KwikPen (U-100) Insulin) metoprolol succinate 25 mg 25 mg PO BID 30 days #60 ta bs 05/20/23 Unknown Rx tablet,extended release 24 hr spironolactone 25 mg tablet 12.5 mg (1/2 x 25 mg) PO D AILY #30 05/20/23 Unknown Rx tabs thiamine HCl (vitamin B1) 100 mg 100 mg PO DAILYCM #0 tabs 05/20/23 Unknown Rx tablet (Vitamin B-1) pantoprazole 40 mg tablet,delayed 40 mg PO BID #60 tab s 06/27/23 Unknown Rx release Allergy/AdvReac Type Severity Reaction Status Date / Time No Known Allergies Allergy Verified 05/09/23 13:37 Family History Father CAD (coronary artery disease) Mother Dementia Surgical History H/O cardiac catheterization History of aortic aneurysm repair (~2016) History of cataract surgery History of hernia repair History of aortic valve replacement with bioprosthetic valve (~2016) H/O aortic valve replacement Social History household members: family housing: house Smoking Status: Current every day smoker tobacco type: cigarettes alcohol intake: current alcohol intake frequency: 0-2 drinks per day details: Reports currently ~ 2 tall boys daily. substance use type: former substance user caffeine: Yes Type: coffee Number of servings: 3 EXAM Physical Exam Const Vital Signs: 06/25/24 16:17 06/25/24 18:25 06/25/24 20:00 Temperature 98.6 F Temperature Source Oral Pulse Rate 104 H 74 88 Respiratory Rate 18 16 18 Blood Pressure 134/98 H 104/71 Blood Pressure Mean 110 82 Pulse Ox 98 96 94 Oxygen Delivery Method Room Air Room Air 06/25/24 21:38 06/25/24 22:00 Temperature 98.5 F Temperature Source Pulse Rate 106 H 118 H Respiratory Rate 15 20 H Blood Pressure 124/90 H 138/86 H Blood Pressure Mean 101 103 Pulse Ox 94 94 Oxygen Delivery Method Room Air MDM MDM MDM Narrative Medical decision making narrative: 63-year-old male with past medical history of DM, aortic valve replacement, HTN,chronic alcohol abuse who presents for evaluation of abdominal pain, distention,constipation. Prior to this had months of diarrhea. States he recently just had a EGD and colonoscopy done at [facility]. Will Clinisync for these results. Differential diagnosis includes but is not limited to constipation, colitis, ascites, electrolyte abnormality, UTI, urinary retention, pancreatitis. NS bolus, Zofran, morphine ordered for symptoms. Bladder scan was 187. On chart review, patient had a colonoscopy in March with Dr. Vazquez. Indication was for iron deficiency anemia. Preparation of the colon was unsatisfactory. There was nonbleeding internal hemorrhoids. No specimens were collected. Repeat colonoscopy within 1 year. He had an EGD performed at the same time. There was erythematous mucosa in the atrium which was biopsied. Z-line that was irregular that was biopsied. CBC without leukocytosis. Patienthas stable anemia and thrombocytopenia. CMP shows hypokalemia of 2.1, hypochloremia of 95, and baseline renal insufficiency with creatinine of 1.27. Patient has hyperglycemia of 398 with an anion gapof 16. He has a lactic acid of 6.6. Patient has a lactic acidosis in the past. I suspect that this is secondary to his alcohol use. Less likely DKA however will add on VBG and beta hydroxybutyrate. Also cannot rule out infectious etiology at this time as CT abdomen pelvis is pending however patientdoes not have leukocytosis. His abdominal exam is not consistent with ischemic colitis. His pain iscurrently controlled with only 2 mg of morphine. On reviewing imaging myself, there appears to be alot of ascites therefore will be judicial with fluids. Will repeat potassium. Add on magnesium. Will obtain EKG due to electrolyte abnormalities. EKG reviewed see below. Repeat potassium 2.1. IV potassium ordered. Will hold off on p.o. given patient's complaint. Magnesium unremarkable. Beta hydroxybutyrate negative. VBG without acidosis. Patient not in DKA. IV insulin ordered. Repeat glucose 277 after insulin. UA negativefor UTI. Positive for glucose but no ketones. Patient has alcoholic transaminitis with an AST of 62. This is improved from previous labs. His albumin is low is 2.5. Lipase unremarkable. CT abdomen pelvis shows diffuse small bowel colonic wall thickening, likely secondary toascites. He has large abdominal pelvic ascites. Hepatomegaly and diffuse steatosis. Patient's abdominal pain and distention is likely due to ascites. He has no history of ascites in the past with no diagnosis of cirrhosis. I do think he would benefitfrom a paracentesis. He will require admission given his electrolyte abnormalities. Patient updated of all the results and the plan and confirmed understanding. I spoke with hospitalist service, Dr. Butler. He accepted admission. He had concerns of patient's lactic acidosis which I understand. Patient not presenting like ischemic colitis and pain is currently controlled. I did offer to call general surgery given patient does have diffuse small bowel and colonic wall thickening however he was okay with foregoing this at this time. Repeat lactic acid pending in which she will follow-up on. EKG: Interpreted by me/EM physician: EKG shows sinus tachycardia with PACs. Known right bundle branch block. Left anterior fascicular block. Heart rate 103. Impression: 1. Abdominal ascites, concern for new diagnosis of cirrhosis 2. Severe hypokalemia 3. Hyperglycemia with history of DM 4. Chronic anemia 5. Chronic thrombocytopenia 6. Alcoholic transaminitis 7. Lactic acidosis Lab Data Labs: Laboratory Results - last 24 hr 06/25/24 06/25/24 06/25/24 17:17 17:17 18:00 WBC Cancelled Corrected WBC Cancelled RBC Cancelled Hgb Cancelled Hct Cancelled MCV Cancelled MCH Cancelled MCHC Cancelled RDW Std Deviation Cancelled RDW Coeff of Kalpana Cancelled Plt Count Cancelled MPV Cancelled Immature Gran % (Auto) Cancelled Neut % (Auto) Cancelled Lymph % (Auto) Cancelled [place] % (Auto) Cancelled Eos % (Auto) Cancelled Baso % (Auto) Cancelled Absolute Neuts (auto) Cancelled Absolute Lymphs (auto) Cancelled Total Counted Cancelled Neutrophils % (Manual) Cancelled Band Neutrophils % Cancelled Lymphocytes % (Manual) Cancelled Monocytes % (Manual) Cancelled Eosinophils % (Manual) Cancelled Basophils % (Manual) Cancelled Metamyelocytes % Cancelled Myelocytes % Cancelled Promyelocytes % Cancelled Blast Cells % Cancelled Plasma Cell % (Manual) Cancelled Other Cells % Cancelled Nucleated RBC % Cancelled Nucleated RBCs/100 WBC Cancelled Differential Comment Cancelled Diff Path Review Cancelled Hypersegmented Neuts Cancelled Atypical Lymphocytes Cancelled Reactive Lymphocytes Cancelled Smudge Cells Cancelled Toxic Granulation Cancelled Toxic Vacuolation Cancelled Dohle Bodies Cancelled [place] Rods Cancelled Platelet Estimate Cancelled Plt Morphology Comment Cancelled RBC Morphology Cancelled Cancelled Polychromasia Cancelled Hypochromasia Cancelled Basophilic Stippling Cancelled Anisocytosis Cancelled Microcytosis Cancelled Macrocytosis Cancelled Spherocytes Cancelled Sickle Cells Cancelled Target Cells Cancelled Tear Drop Cells Cancelled Ovalocytes Cancelled Stomatocytes Cancelled Whiteside-Morrill Bodies Cancelled Kristofer Cells Cancelled Bite Cells Cancelled Crenated Cell Cancelled Acanthocytes (Spur) Cancelled Rouleaux Cancelled Schistocytes Cancelled Sodium Cancelled Potassium Cancelled Chloride Cancelled Carbon Dioxide Cancelled Anion Gap Cancelled BUN Cancelled Creatinine Cancelled Estim Creat Clear Calc Cancelled Est GFR (MDRD) Non-Af Cancelled BUN/Creatinine Ratio Cancelled Glucose Cancelled Lactic Acid 6.6 H* Calcium Cancelled Magnesium Total Bilirubin Cancelled AST Cancelled ALT Cancelled Alkaline Phosphatase Cancelled Total Protein Cancelled Albumin Cancelled Globulin Cancelled Albumin/Globulin Ratio Cancelled Lipase Cancelled b-Hydroxybutyric mmol/L Urine Color Urine Clarity Urine pH Ur Specific [place] Urine Protein Urine Glucose (UA) Urine Ketones Urine Occult Blood Urine Nitrite Urine Bilirubin Urine Urobilinogen Ur Leukocyte Esterase Urine RBC Urine WBC Ur Squamous Epith Cells Urine Bacteria Urine Mucus POC Glucose 06/25/24 06/25/24 06/25/24 18:07 18:07 19:17 WBC 4.8 Corrected WBC RBC 2.80 L Hgb 10.1 L Hct 29.8 L MCV 106.4 H MCH 36.1 H MCHC 33.9 RDW Std Deviation 63.9 H RDW Coeff of Kalpana 16.2 H Plt Count 124 L MPV 11.8 Immature Gran % (Auto) 0.200 Neut % (Auto) 65.3 Lymph % (Auto) 22.1 [place] % (Auto) 11.6 H Eos % (Auto) 0.2 Baso % (Auto) 0.6 Absolute Neuts (auto) 3.1 Absolute Lymphs (auto) 1.05 Total Counted Neutrophils % (Manual) Band Neutrophils % Lymphocytes % (Manual) Monocytes % (Manual) Eosinophils % (Manual) Basophils % (Manual) Metamyelocytes % Myelocytes % Promyelocytes % Blast Cells % Plasma Cell % (Manual) Other Cells % Nucleated RBC % 0 Nucleated RBCs/100 WBC Differential Comment Diff Path Review Hypersegmented Neuts Atypical Lymphocytes Reactive Lymphocytes Smudge Cells Toxic Granulation Toxic Vacuolation Dohle Bodies [place] Rods Platelet Estimate Plt Morphology Comment RBC Morphology Polychromasia Hypochromasia Basophilic Stippling Anisocytosis Microcytosis Macrocytosis Spherocytes Sickle Cells Target Cells Tear Drop Cells Ovalocytes Stomatocytes Whiteside-[place]rill Bodies Kristofer Cells Bite Cells Crenated Cell Acanthocytes (Spur) Rouleaux Schistocytes Sodium 136 Potassium 2.2 L* 2.1 L* Chloride 95 L Carbon Dioxide 24.2 Anion Gap 16 H BUN 8 Creatinine 1.27 H Estim Creat Clear Calc 65.06 Est GFR (MDRD) Non-Af 64 BUN/Creatinine Ratio 6.5 L Glucose 398 H Lactic Acid Calcium 7.7 Magnesium 1.8 Total Bilirubin 0.46 AST 62 H ALT 32 Alkaline Phosphatase 125 Total Protein 5.0 L Albumin 2.5 L Globulin 2.5 Albumin/Globulin Ratio 1.0 Lipase 6 L b-Hydroxybutyric mmol/L 0.1 Urine Color Urine Clarity Urine pH Ur Specific [place] Urine Protein Urine Glucose (UA) Urine Ketones Urine Occult Blood Urine Nitrite Urine Bilirubin Urine Urobilinogen Ur Leukocyte Esterase Urine RBC Urine WBC Ur Squamous Epith Cells Urine Bacteria Urine Mucus POC Glucose 348 H 06/25/24 06/25/24 19:23 20:30 WBC Corrected WBC RBC Hgb Hct MCV MCH MCHC RDW Std Deviation RDW Coeff of Kalpana Plt Count MPV Immature Gran % (Auto) Neut % (Auto) Lymph % (Auto) [place] % (Auto) Eos % (Auto) Baso % (Auto) Absolute Neuts (auto) Absolute Lymphs (auto) Total Counted Neutrophils % (Manual) Band Neutrophils % Lymphocytes % (Manual) Monocytes % (Manual) Eosinophils % (Manual) Basophils % (Manual) Metamyelocytes % Myelocytes % Promyelocytes % Blast Cells % Plasma Cell % (Manual) Other Cells % Nucleated RBC % Nucleated RBCs/100 WBC Differential Comment Diff Path Review Hypersegmented Neuts Atypical Lymphocytes Reactive Lymphocytes Smudge Cells Toxic Granulation Toxic Vacuolation Dohle Bodies Huyen Rods Platelet Estimate Plt Morphology Comment RBC Morphology Polychromasia Hypochromasia Basophilic Stippling Anisocytosis Microcytosis Macrocytosis Spherocytes Sickle Cells Target Cells Tear Drop Cells Ovalocytes Stomatocytes Whiteside-Morrill Bodies Kristofer Cells Bite Cells Crenated Cell Acanthocytes (Spur) Rouleaux Schistocytes Sodium Potassium Chloride Carbon Dioxide Anion Gap BUN Creatinine Estim Creat Clear Calc Est GFR (MDRD) Non-Af BUN/Creatinine Ratio Glucose Lactic Acid Calcium Magnesium Total Bilirubin AST ALT Alkaline Phosphatase Total Protein Albumin Globulin Albumin/Globulin Ratio Lipase b-Hydroxybutyric mmol/L Urine Color Yellow Urine Clarity Clear Urine pH 7.0 Ur Specific [place] 1.010 Urine Protein 15 H Urine Glucose (UA) 1000 H Urine Ketones Negative Urine Occult Blood 50 H Urine Nitrite Negative Urine Bilirubin Negative Urine Urobilinogen Normal Ur Leukocyte Esterase Negative Urine RBC 0 SEEN Urine WBC 0 SEEN Ur Squamous Epith Cells 0 SEEN Urine Bacteria 0 SEEN Urine Mucus 0 SEEN POC Glucose 277 H ABG Data ABG results: ABG 06/25/24 19:23 Specimen Type ROSA Sample Site Not entered VBG pH 7.43 H VBG pO2 29 VBG HCO3 29 H VBG Total CO2 30 VBG O2 Sat (Calc) 58 VBG Base Excess 4 H POC Mix VBG pCO2 Pt Tmp 42.7 O2 Delivery Device Room Air Radiography Diagnostic Testing: Clinical Impression(s) from Imaging Studies Abdomen/Pelvis CT 06/25/24 16:43 IMPRESSION: 1. Diffuse small bowel and colonic wall thickening, likely secondary to ascites. 2. Large abdominopelvic ascites. 3. Hepatomegaly and diffuse steatosis. OVERALL FINAL ASSESSMENT: . LI-RADS is not meant to be used in patients <18 years or patients with cirrhosisdue to congenital hepatic fibrosis or due to vascular disorders, because these patients have a lower chance of developing HCC. [facility] T[facility] Chief Complaint: Abd Pain ED Provider: Rolan Romero Dx/Rx/DC Orders Prescriptions: No Action atorvastatin 10 mg tablet 10 mg PO DAILY hydralazine 25 mg tablet 25 mg PO TID dapagliflozin propanediol [Farxiga] 10 mg Tablet 10 mg PO DAILY multivitamin Tablet 1 tab PO DAILY insulin glargine [Lantus Solostar U-100 Insulin] 100 unit/mL (3 mL) insulin pen 10 unit subcut 1200 Patient Comments: pt stated he has not taken lantus for several days gabapentin 300 mg Capsule 300 mg PO DAILY Patient Comments: PT STATES THEY THINK THEY ARE ON THIS MEDICATION. metformin 500 mg tablet extended release 24 hr 500 mg PO BID Patient Comments: PT STATES THEY TAKE THIS ONCE DAILY. pantoprazole 40 mg tablet,delayed release (DR/EC) 40 mg PO BID Qty: 60 0RF thiamine HCl (vitamin B1) [Vitamin B-1] 100 mg Tablet 100 mg PO DAILYCM Qty: 0 0RF L.acidoph,saliva-B.bif-S.therm 175 mg Capsule 2 cap PO BID Qty: 0 0RF folic acid 1 mg Tablet 1 mg PO DAILY@0800 Qty: 0 0RF insulin lispro [Humalog KwikPen Insulin] 100 unit/mL Insulin Pen See Protocol subcut ACHS Qty: 0 0RF Protocol: 4. Sliding Scale Insulin High-Med Dosing Condition: 150-199 mg/dl = 2 units Condition: 200-259 mg/dl = 4 units Condition: 260-324 mg/dl = 6 units Condition: 325-374 mg/dl = 8 units Condition: 375-409 mg/dl = 10 units Condition: 410-449 mg/dl = 11 units Condition: Greater than 449 call physician Protocol Text: - Use for Total Daily Dose of Insulin 56-80 units - Patient who are insulin resistant or septic HIGH MEDIUM DOSING ALGORITHM furosemide 40 mg tablet 40 mg PO DAILY Qty: 30 0RF spironolactone 25 mg tablet 12.5 mg PO DAILY Qty: 30 0RF Rx Instructions: Hold if serum potassium more than 5.1. dicyclomine 10 mg Capsule 20 mg PO Q6H PRN PRN (Reason: abdominal discomfort) Qty: 0 0RF metoprolol succinate 25 mg Tablet Extended Release 24 Hr 25 mg PO BID 30 Days Qty: 60 0RF Primary Care Provider: Marianna Wagner NP Referrals: Marianna Wagner NP, VEHICLE MODIFICATION TECHNICIAN-C [Primary Care Provider] - Print Language: Pakistani What to do if you have Problems For any increased pain, shortness of breath, bleeding, nausea or vomiting, chestpain, or any unexpected problems, contact your Primary Care Provider. Call [facility] ([phone]) or report tothe closest Emergency Room. Call 911 if necessary. 06/25/24 [id number] Cosigner Signature (if applicable): CC: VEHICLE MODIFICATION TECHNICIAN-C Marianna Wagner ~ Signed [facility]05-18-2025 Radiology Diagnostic study note [facility] Imaging Services [address] [place] [address] Abdomen/Pelvis W IV Cont ONLY MR#: [id number] Acct: [id number] Name: ANALILIA MELENDREZ Rep #: [id number] : 1960 M 63 From: Lawanda Bernstein MD PCP: ALAN Wilde Status: REG E R Study:Abdomen/Pelvis W IV Cont ONLY Date of E xam: 06/25/24 Exam# [id number] Ordering Dr: Rolan De Souza DO PROCEDURE: ABDOMEN/PELVIS W IV CONT ONLY 06/25/2024 REASON FOR EXAM: ABDOMINAL PAIN, DISTENTION, CONSTIPATION TECHNIQUE: Abdomen and pelvis CT with intravenous contrast. Coronal and Sagittal reconstruction series were provided. PATIENT PREPARATION: Per protocol ORAL CONTRAST TYPE: None. AMOUNT: mL CONTRAST: Omnipaque 350 VOLUME: 100 mL Not Provided Gauge IV One or more dose reduction techniques were used (e.g., Automated exposure control, adjustment of the mA and/or kV according to patient size, use of iterative reconstruction technique. COMPARISON: CT abdomen and pelvis 05/09/2023 FINDINGS: Lung bases: Moderate bilateral pleural effusion with atelectasis. Moderate cardiomegaly. Severe atherosclerotic calcifications. Liver: Mild hepatomegaly. Diffuse steatosis. Scattered simple cysts. Gallbladder: No ductal dilation. Gallbladder is unremarkable. Spleen: Normal size. Pancreas: Diffuse pancreatic atrophy with diffuse dystrophic calcifications, compatible with sequela of chronic pancreatitis. Diffuse ductal dilation. Adrenals: Unremarkable. Kidneys: Normal renal sizes. No hydronephrosis. Bladder: Urinary bladder is moderately distended. Reproductive Organs: No pelvic mass. Bowel: Small hiatal hernia. Gallbladder is collapsed. No bowel dilation. Diffuse small bowel and colonic wall thickening. Moderate colonic stool. Appendix is normal. Appendix: Normal Lymph nodes: No suspicious lymph node enlargement. Vasculature: Severe diffuse atherosclerotic calcifications are noted. Peritoneum / Retroperitoneum: Large abdominopelvic ascites. Bones: Degenerative changes of the spine. Soft tissue: Diffuse subcutaneous edema. CT/Abdomen/Pelvis W IV Cont ONLY IMPRESSION: 1. Diffuse small bowel and colonic wall thickening, likely secondary to ascites. 2. Large abdominopelvic ascites. 3. Hepatomegaly and diffuse steatosis. OVERALL FINAL ASSESSMENT: . LI-RADS is not meant to be used in patients <18 years or patients with cirrhosisdue to congenital hepatic fibrosis or due to vascular disorders, because these patients have a lower chance of developing HCC. Reading Location: [facility] CC: ALAN Wagner; Dr. Rolan Romero DO ~ Utilization Review Coordinator: Signed [facility]05-18-2025 Discharge summary Author Rolan Romero [facility] Note Date/Time June 25, 2024 11:17 pm [facility] Medical Records Department [address] [place] [address] Emergency Department Summary 06/25/24 MR#: [id number] Acct: [id number] Name: ANALILIA MELENDREZ Rep #:[id number] : 1960 63 From: Rolan stock DO PCP: ALAN Wilde Status:ADM I N Location: [place] [address] HPI History of Present Illness Chief Complaint: Abd Pain Narrative Narrative: Chief complaint and HPI: Abdominal pain, distention, constipation. 63-year-old male with past medical history of DM, aortic valve replacement, HTN, chronic alcohol abuse who presents for evaluation of abdominal pain, distention, constipation. History taken by patient as well as medical record. Patient has chronic history of abdominal pain. He has been seen in our emergency departmentmultiple times for this. He states that for the past several months he has beenhaving diarrhea in which he has had outpatient workup including EGD and colonoscopy in May. He states that there was no acute findings. Patient states 4 days ago his diarrhea stopped and he became constipated. He endorses diffuse abdominal pain and distention. Endorses decreased urine output and foul-smelling urine. Associated symptom is decreased p.o. intake. He denies any fever, chills, shortness of breath, chest pain, vomiting. Still endorses alcohol abuse. Review of systems: See HPI Medications: As listed on the chart Allergies: As listed on the chart PFSH: Per chart Vital signs: As listed on the chart. Reviewed. Physical exam: Gen: A&O x3, NAD Head: Normocephalic, atraumatic Eyes: No sclera icterus, conjunctiva clear ENT: Dry mucous membranes Neck: Trachea midline, No JVD CV: RRR, no murmurs, no peripheral edema Resp: Lungs CTA BL, no w/r/c GI: Abd soft, distended, tender to palpation diffusely, no rebound or rigidity : No CVA tenderness Musc: Full ROM, no deformity Skin: Warm, dry, multiple old ecchymosis on the body especially the abdomen frominsulin injections Neuro: Alert, oriented, grossly intact, sensation intact Psych: Cooperative, appropriate mood and affect [facility] Medical History MALIK (acute kidney injury) Seizures Alcoholic hepatitis Chronic pancreatitis Gastric wall thickening Alcohol dependence Abdominal ascites Anxiety Diabetes Pancreatitis Myocardial infarct Pacemaker AAA (abdominal aortic aneurysm) Admitted to alcohol detoxification center Alcohol abuse Hx of hypercholesterolemia History of diabetes mellitus Alcohol dependence Substance abuse Smoker Alcoholism Right bundle branch block (RBBB) Non-sustained ventricular tachycardia Thoracic aortic aneurysm SVT (supraventricular tachycardia) Ascending aortic dissection (~2005) Pure hypercholesterolemia Adrenal nodule Hiatal hernia Left carotid bruit Cardiac pacemaker in situ (~06/2016) Essential hypertension Pacemaker Sick sinus syndrome Tobacco use HTN (hypertension) Diabetes mellitus, type II Home Medications ?Medication ?Instructions ?Recorded ?Last Taken ?Type atorvastatin 10 mg tablet 10 mg PO DAILY CHOLESTEROL 0 10/17/20 04/19/23 History hydralazine 25 mg tablet 25 mg PO TID BP 10/17/2001/01 History dapagliflozin propanediol 10 mg 10 mg PO DAILY DIABETE S 09/30/21 04/19/23 History tablet (Farxiga) Held on 05/20/23. Instructions: Hold it because of MALIK. multivitamin 1 tab PO DAILY SUPPLEMENT 11/10/21 History gabapentin 300 mg capsule 300 mg PO DAILY NEUROPATHY 1 Unknown History insulin glargine 100 unit/mL (3 10 unit subcut 1200 DI ABETES 11/14/22 04/19/23 History mL) subcutaneous pen (Lantus Solostar U-100 Insulin) metformin 500 mg tablet,extended 500 mg PO BID DIABETE S 11/15/22 04/19/23 History release 24 hr Held on 05/20/23. Instructions: Hold at least 1 week . Discontinue if creatinine clearance less than 30 mill per minute L.acidophil,salivari-Bifido 2 cap PO BID #0 caps 05/19 Unknown Rx bifidum-Strep thermoph 175 mg capsule dicyclomine 10 mg capsule 20 mg (2 x 10 mg) PO Q6H PRN PRN 05/20/23 Unknown Rx abdominal discomfort #0 caps folic acid 1 mg tablet 1 mg PO DAILY@0800 #0 tabs 0 05/20/23 Unknown Rx furosemide 40 mg tablet 40 mg PO DAILY #30 tabs 05/09 03/03 Unknown Rx insulin lispro 100 unit/mL See Protocol subcut ACHS #0 mL 05/20/23 Unknown Rx subcutaneous pen (Humalog KwikPen (U-100) Insulin) metoprolol succinate 25 mg 25 mg PO BID 30 days #60 ta bs 05/20/23 Unknown Rx tablet,extended release 24 hr spironolactone 25 mg tablet 12.5 mg (1/2 x 25 mg) PO D AILY #30 05/20/23 Unknown Rx tabs thiamine HCl (vitamin B1) 100 mg 100 mg PO DAILYCM #0 tabs 05/20/23 Unknown Rx tablet (Vitamin B-1) pantoprazole 40 mg tablet,delayed 40 mg PO BID #60 tab s 06/27/23 Unknown Rx release Allergy/AdvReac Type Severity Reaction Status Date / Time No Known Allergies Allergy Verified 05/09/23 13:37 Family History Father CAD (coronary artery disease) Mother Dementia Surgical History H/O cardiac catheterization History of aortic aneurysm repair (~2017) History of cataract surgery History of hernia repair History of aortic valve replacement with bioprosthetic valve (~2017) H/O aortic valve replacement Social History household members: family housing: house Smoking Status: Current every day smoker tobacco type: cigarettes alcohol intake: current alcohol intake frequency: 0-2 drinks per day details: Reports currently ~ 2 tall boys daily. substance use type: former substance user caffeine: Yes Type: coffee Number of servings: 3 EXAM Physical Exam Const Vital Signs: 06/25/24 16:17 06/25/24 18:25 06/25/24 20:00 Temperature 98.6 F Temperature Source Oral Pulse Rate 104 H 74 88 Respiratory Rate 18 16 18 Blood Pressure 134/98 H 104/71 Blood Pressure Mean 110 82 Pulse Ox 98 96 94 Oxygen Delivery Method Room Air Room Air 06/25/24 21:38 06/25/24 22:00 Temperature 98.5 F Temperature Source Pulse Rate 106 H 118 H Respiratory Rate 15 20 H Blood Pressure 124/90 H 138/86 H Blood Pressure Mean 101 103 Pulse Ox 94 94 Oxygen Delivery Method Room Air MDM MDM MDM Narrative Medical decision making narrative: 63-year-old male with past medical history of DM, aortic valve replacement, HTN,chronic alcohol abuse who presents for evaluation of abdominal pain, distention,constipation. Prior to this had months of diarrhea. States he recently just had a EGD and colonoscopy done at [facility]. Will Clinisync for these results. Differential diagnosis includes but is not limited to constipation, colitis, ascites, electrolyte abnormality, UTI, urinary retention, pancreatitis. NS bolus, Zofran, morphine ordered for symptoms. Bladder scan was 187. On chart review, patient had a colonoscopy in March not May with Dr. Vazquez. Indication was for iron deficiency anemia. Preparation of the colon was unsatisfactory. There was nonbleeding internal hemorrhoids. No specimens were collected. Repeat colonoscopy within 1 year. He had an EGD performed at the same time. There was erythematous mucosa in the atrium which was biopsied. Z-line that was irregular that was biopsied. CBC without leukocytosis. Patienthas stable anemia and thrombocytopenia. CMP shows hypokalemia of 2.1, hypochloremia of 95, and baseline renal insufficiency with creatinine of 1.27. Patient has hyperglycemia of 398 with an anion gap of 16. He has a lactic acid of 6.6. Patient has a lactic acidosis in the past. I suspect that this is secondary to his alcohol use. Less likely DKA however will add on VBG and beta hydroxybutyrate. Also cannot rule out infectious etiology at this time as CT abdomen pelvis is pending however patient does not have leukocytosis. His abdominal exam is not consistent with ischemic colitis. His pain is currently controlled with only 2 mg of morphine. On reviewing imaging myself, there appears to be a lot of ascites therefore will be judicial with fluids. Will repeat potassium. Add on magnesium. Will obtain EKG due to electrolyte abnormalities. EKG reviewed see below. Repeat potassium 2.1. IV potassium ordered. Will hold off on p.o. given patient's complaint. Magnesium unremarkable. Beta hydroxybutyrate negative. VBG without acidosis. Patient not in DKA. IV insulin ordered. Repeat glucose 277 after insulin. UA negativefor UTI. Positive for glucose but no ketones. Patient has alcoholic transaminitis with an AST of 62. This is improved from previous labs. His albumin is low is 2.5. Lipase unremarkable. CT abdomen pelvis shows diffuse small bowel colonic wall thickening, likely secondary to ascites. He has large abdominal pelvic ascites. Hepatomegaly and diffuse steatosis. Patient's abdominal pain and distention is likely due to ascites. He has no history of ascites in the past with no diagnosis of cirrhosis. I do think he would benefitfrom a paracentesis. He will require admission given his electrolyte abnormalities. Patient updated of all the results and the plan and confirmed understanding. I spoke with hospitalist service, Dr. Butler. He accepted admission. He had concerns of patient's lactic acidosis which I understand. Patient not presenting like ischemic colitis and pain is currently controlled. I did offer to call general surgery given patient does have diffuse small bowel and colonic wall thickening however he was okay with foregoing this at this time. Repeat lactic acid pending in which she will follow-up on. EKG: Interpreted by me/EM physician: EKG shows sinus tachycardia with PACs. Known right bundle branch block. Left anterior fascicular block. Heart rate 103. Impression: 1. Abdominal ascites, concern for new diagnosis of cirrhosis 2. Severe hypokalemia 3. Hyperglycemia with history of DM 4. Chronic anemia 5. Chronic thrombocytopenia 6. Alcoholic transaminitis 7. Lactic acidosis Lab Data Labs: Laboratory Results - last 24 hr 06/25/24 06/25/24 06/25/24 17:17 17:17 18:00 WBC Cancelled Corrected WBC Cancelled RBC Cancelled Hgb Cancelled Hct Cancelled MCV Cancelled MCH Cancelled MCHC Cancelled RDW Std Deviation Cancelled RDW Coeff of Kalpana Cancelled Plt Count Cancelled MPV Cancelled Immature Gran % (Auto) Cancelled Neut % (Auto) Cancelled Lymph % (Auto) Cancelled [place] % (Auto) Cancelled Eos % (Auto) Cancelled Baso % (Auto) Cancelled Absolute Neuts (auto) Cancelled Absolute Lymphs (auto) Cancelled Total Counted Cancelled Neutrophils % (Manual) Cancelled Band Neutrophils % Cancelled Lymphocytes % (Manual) Cancelled Monocytes % (Manual) Cancelled Eosinophils % (Manual) Cancelled Basophils % (Manual) Cancelled Metamyelocytes % Cancelled Myelocytes % Cancelled Promyelocytes % Cancelled Blast Cells % Cancelled Plasma Cell % (Manual) Cancelled Other Cells % Cancelled Nucleated RBC % Cancelled Nucleated RBCs/100 WBC Cancelled Differential Comment Cancelled Diff Path Review Cancelled Hypersegmented Neuts Cancelled Atypical Lymphocytes Cancelled Reactive Lymphocytes Cancelled Smudge Cells Cancelled Toxic Granulation Cancelled Toxic Vacuolation Cancelled Dohle Bodies Cancelled [place] Rods Cancelled Platelet Estimate Cancelled Plt Morphology Comment Cancelled RBC Morphology Cancelled Cancelled Polychromasia Cancelled Hypochromasia Cancelled Basophilic Stippling Cancelled Anisocytosis Cancelled Microcytosis Cancelled Macrocytosis Cancelled Spherocytes Cancelled Sickle Cells Cancelled Target Cells Cancelled Tear Drop Cells Cancelled Ovalocytes Cancelled Stomatocytes Cancelled [place]ites[place]rill Bodies Cancelled [place] Cells Cancelled Bite Cells Cancelled Crenated Cell Cancelled Acanthocytes (Spur) Cancelled Rouleaux Cancelled Schistocytes Cancelled Sodium Cancelled Potassium Cancelled Chloride Cancelled Carbon Dioxide Cancelled Anion Gap Cancelled BUN Cancelled Creatinine Cancelled Estim Creat Clear Calc Cancelled Est GFR (MDRD) Non-Af Cancelled BUN/Creatinine Ratio Cancelled Glucose Cancelled Lactic Acid 6.6 H* Calcium Cancelled Magnesium Total Bilirubin Cancelled AST Cancelled ALT Cancelled Alkaline Phosphatase Cancelled Total Protein Cancelled Albumin Cancelled Globulin Cancelled Albumin/Globulin Ratio Cancelled Lipase Cancelled b-Hydroxybutyric mmol/L Urine Color Urine Clarity Urine pH Ur Specific [place] Urine Protein Urine Glucose (UA) Urine Ketones Urine Occult Blood Urine Nitrite Urine Bilirubin Urine Urobilinogen Ur Leukocyte Esterase Urine RBC Urine WBC Ur Squamous Epith Cells Urine Bacteria Urine Mucus POC Glucose 06/25/24 06/25/24 06/25/24 18:07 18:07 19:17 WBC 4.8 Corrected WBC RBC 2.80 L Hgb 10.1 L Hct 29.8 L MCV 106.4 H MCH 36.1 H MCHC 33.9 RDW Std Deviation 63.9 H RDW Coeff of Kalp[place] 16.2 H Plt Count 124 L MPV 11.8 Immature Gran % (Auto) 0.200 Neut % (Auto) 65.3 Lymph % (Auto) 22.1 [place] % (Auto) 11.6 H Eos % (Auto) 0.2 Baso % (Auto) 0.6 Absolute Neuts (auto) 3.1 Absolute Lymphs (auto) 1.05 Total Counted Neutrophils % (Manual) Band Neutrophils % Lymphocytes % (Manual) Monocytes % (Manual) Eosinophils % (Manual) Basophils % (Manual) Metamyelocytes % Myelocytes % Promyelocytes % Blast Cells % Plasma Cell % (Manual) Other Cells % Nucleated RBC % 0 Nucleated RBCs/100 WBC Differential Comment Diff Path Review Hypersegmented Neuts Atypical Lymphocytes Reactive Lymphocytes Smudge Cells Toxic Granulation Toxic Vacuolation Dohle Bodies [place] Rods Platelet Estimate Plt Morphology Comment RBC Morphology Polychromasia Hypochromasia Basophilic Stippling Anisocytosis Microcytosis Macrocytosis Spherocytes Sickle Cells Target Cells Tear Drop Cells Ovalocytes Stomatocytes Whiteside-Morrill Bodies Kristofer Cells Bite Cells Crenated Cell Acanthocytes (Spur) Rouleaux Schistocytes Sodium 136 Potassium 2.2 L* 2.1 L* Chloride 95 L Carbon Dioxide 24.2 Anion Gap 16 H BUN 8 Creatinine 1.27 H Estim Creat Clear Calc 65.06 Est GFR (MDRD) Non-Af 64 BUN/Creatinine Ratio 6.5 L Glucose 398 H Lactic Acid Calcium 7.7 Magnesium 1.8 Total Bilirubin 0.46 AST 62 H ALT 32 Alkaline Phosphatase 125 Total Protein 5.0 L Albumin 2.5 L Globulin 2.5 Albumin/Globulin Ratio 1.0 Lipase 6 L b-Hydroxybutyric mmol/L 0.1 Urine Color Urine Clarity Urine pH Ur Specific [place] Urine Protein Urine Glucose (UA) Urine Ketones Urine Occult Blood Urine Nitrite Urine Bilirubin Urine Urobilinogen Ur Leukocyte Esterase Urine RBC Urine WBC Ur Squamous Epith Cells Urine Bacteria Urine Mucus POC Glucose 348 H 06/25/24 06/25/24 19:23 20:30 WBC Corrected WBC RBC Hgb Hct MCV MCH MCHC RDW Std Deviation RDW Coeff of [place] Plt Count MPV Immature Gran % (Auto) Neut % (Auto) Lymph % (Auto) [place] % (Auto) Eos % (Auto) Baso % (Auto) Absolute Neuts (auto) Absolute Lymphs (auto) Total Counted Neutrophils % (Manual) Band Neutrophils % Lymphocytes % (Manual) Monocytes % (Manual) Eosinophils % (Manual) Basophils % (Manual) Metamyelocytes % Myelocytes % Promyelocytes % Blast Cells % Plasma Cell % (Manual) Other Cells % Nucleated RBC % Nucleated RBCs/100 WBC Differential Comment Diff Path Review Hypersegmented Neuts Atypical Lymphocytes Reactive Lymphocytes Smudge Cells Toxic Granulation Toxic Vacuolation Dohle Bodies [place]en Rods Platelet Estimate Plt Morphology Comment RBC Morphology Polychromasia Hypochromasia Basophilic Stippling Anisocytosis Microcytosis Macrocytosis Spherocytes Sickle Cells Target Cells Tear Drop Cells Ovalocytes Stomatocytes Whiteside-[place]rill Bodies Kristofer Cells Bite Cells Crenated Cell Acanthocytes (Spur) Rouleaux Schistocytes Sodium Potassium Chloride Carbon Dioxide Anion Gap BUN Creatinine Estim Creat Clear Calc Est GFR (MDRD) Non-Af BUN/Creatinine Ratio Glucose Lactic Acid Calcium Magnesium Total Bilirubin AST ALT Alkaline Phosphatase Total Protein Albumin Globulin Albumin/Globulin Ratio Lipase b-Hydroxybutyric mmol/L Urine Color Yellow Urine Clarity Clear Urine pH 7.0 Ur Specific [place] 1.010 Urine Protein 15 H Urine Glucose (UA) 1000 H Urine Ketones Negative Urine Occult Blood 50 H Urine Nitrite Negative Urine Bilirubin Negative Urine Urobilinogen Normal Ur Leukocyte Esterase Negative Urine RBC 0 SEEN Urine WBC 0 SEEN Ur Squamous Epith Cells 0 SEEN Urine Bacteria 0 SEEN Urine Mucus 0 SEEN POC Glucose 277 H ABG Data ABG results: ABG 06/25/24 19:23 Specimen Type ROSA Sample Site Not entered VBG pH 7.43 H VBG pO2 29 VBG HCO3 29 H VBG Total CO2 30 VBG O2 Sat (Calc) 58 VBG Base Excess 4 H POC Mix VBG pCO2 Pt Tmp 42.7 O2 Delivery Device Room Air Radiography Diagnostic Testing: Clinical Impression(s) from Imaging Studies Abdomen/Pelvis CT 06/25/24 16:43 IMPRESSION: 1. Diffuse small bowel and colonic wall thickening, likely secondary to ascites. 2. Large abdominopelvic ascites. 3. Hepatomegaly and diffuse steatosis. OVERALL FINAL ASSESSMENT: . LI-RADS is not meant to be used in patients <18 years or patients with cirrhosisdue to congenital hepatic fibrosis or due to vascular disorders, because these patients have a lower chance of developing HCC. Reading Location: [facility] Discharge Plan Triage Chief Complaint: Abd Pain ED Provider: Rolan Romero Dx/Rx/DC Orders Prescriptions: No Action atorvastatin 10 mg tablet 10 mg PO DAILY hydralazine 25 mg tablet 25 mg PO TID dapagliflozin propanediol [Farxiga] 10 mg Tablet 10 mg PO DAILY multivitamin Tablet 1 tab PO DAILY insulin glargine [Lantus Solostar U-100 Insulin] 100 unit/mL (3 mL) insulin pen 10 unit subcut 1200 Patient Comments: pt stated he has not taken lantus for several days gabapentin 300 mg Capsule 300 mg PO DAILY Patient Comments: PT STATES THEY THINK THEY ARE ON THIS MEDICATION. metformin 500 mg tablet extended release 24 hr 500 mg PO BID Patient Comments: PT STATES THEY TAKE THIS ONCE DAILY. pantoprazole 40 mg tablet,delayed release (DR/EC) 40 mg PO BID Qty: 60 0RF thiamine HCl (vitamin B1) [Vitamin B-1] 100 mg Tablet 100 mg PO DAILYCM Qty: 0 0RF L.acidoph,saliva-B.bif-S.therm 175 mg Capsule 2 cap PO BID Qty: 0 0RF folic acid 1 mg Tablet 1 mg PO DAILY@0800 Qty: 0 0RF insulin lispro [Humalog KwikPen Insulin] 100 unit/mL Insulin Pen See Protocol subcut ACHS Qty: 0 0RF Protocol: 4. Sliding Scale Insulin High-Med Dosing Condition: 150-199 mg/dl = 2 units Condition: 200-259 mg/dl = 4 units Condition: 260-324 mg/dl = 6 units Condition: 325-374 mg/dl = 8 units Condition: 375-409 mg/dl = 10 units Condition: 410-449 mg/dl = 11 units Condition: Greater than 449 call physician Protocol Text: - Use for Total Daily Dose of Insulin 56-80 units - Patient who are insulin resistant or septic HIGH MEDIUM DOSING ALGORITHM furosemide 40 mg tablet 40 mg PO DAILY Qty: 30 0RF spironolactone 25 mg tablet 12.5 mg PO DAILY Qty: 30 0RF Rx Instructions: Hold if serum potassium more than 5.1. dicyclomine 10 mg Capsule 20 mg PO Q6H PRN PRN (Reason: abdominal discomfort) Qty: 0 0RF metoprolol succinate 25 mg Tablet Extended Release 24 Hr 25 mg PO BID 30 Days Qty: 60 0RF Primary Care Provider: Marianna Wagner NP Referrals: Marianna Wagner VEHICLE MODIFICATION TECHNICIAN, VEHICLE MODIFICATION TECHNICIAN-C [Primary Care Provider] - Print Language: Pakistani What to do if you have Problems For any increased pain, shortness of breath, bleeding, nausea or vomiting, chestpain, or any unexpected problems, contact your Primary Care Provider. Call [facility] ([phone]) or report to the closest Emergency Room. Call 911 if necessary. 06/25/242316 <Electronically signed by Rolan oRmero DO> Cosigner Signature (if applicable): CC: VEHICLE MODIFICATION TECHNICIAN-C Marianna Wagner ~ Signed [facility] Work Phone: [phone]) 646-878805-14-2025 Telephone encounter Note* Telephone Encounter - Andrew Ponce MA - 06/21/2024 2:32 PM EDT Pt. Cristo on stating awhile back you put him on antibiotics for a UTI and he would like a refill. Please advise. Andrew Ponce MA [facility]05-14-2025 Miscellaneous Notes* Telephone Encounter - Andrew Ponce MA - 06/21/2024 2:32 PM EDT Pt. Cristo on stating awhile back you put him on antibiotics for a UTI and he would like a refill. Please advise. Andrew Ponce MA documented in this encounterDun[facility]04-21-2025 Telephone encounter Note * Telephone Encounter - Suzi Haynes MA - 05/29/2024 9:06 AM EDT pharmacy electronically requesting refills as follows: Last seen 12/27/23 . Last refill metoprolol 04/10/24, pantoprazole 02/21/24 . Requested Prescriptions Pending Prescriptions Disp Refills metoprolol tartrate, short acting, (LOPRESSOR) 50 mg tablet [Pharmacy Med Name: METOPROLOL [id number] TABS] 60 tablet 0 Sig: TAKE ONE TABLET BY MOUTH TWICE A DAY pantoprazole DR (PROTONIX) 40 mg tablet [Pharmacy Med Name: PANTOPRAZOLE SODIUM 40MG TBEC] 60 tablet 2 Sig: TAKE ONE TABLET BY MOUTH TWICE A DAY 3O MINUTES BEFORE MEAL Please review and advise. Suzi Haynes MA [facility]04-21-2025 Miscellaneous Notes* Telephone Encounter - Suzi Haynes MA - 05/29/2024 9:06 AM EDT pharmacy electronically requesting refills as follows: Last seen 12/27/23 . Last refill metoprolol 04/10/24, pantoprazole 02/21/24 . Requested Prescriptions Pending Prescriptions Disp Refills metoprolol tartrate, short acting, (LOPRESSOR) 50 mg tablet [Pharmacy Med Name: METOPROLOL [id number] TABS] 60 tablet 0 Sig: TAKE ONE TABLET BY MOUTH TWICE A DAY pantoprazole DR (PROTONIX) 40 mg tablet [Pharmacy Med Name: PANTOPRAZOLE SODIUM 40MG TBEC] 60 tablet 2 Sig: TAKE ONE TABLET BY MOUTH TWICE A DAY 3O MINUTES BEFORE MEAL Please review and advise. Suzi Haynes MA documented in this encounterDun[facility]04-07-2025 Telephone encounter Note * Telephone Encounter - Andrew Ponce MA - 05/15/2024 8:01 AM EDT pharm requesting refills: Last office visit 12/27/2023. Last refill 04/10/2024 nov none Requested Prescriptions Pending Prescriptions Disp Refills ramipril (ALTACE) 10 mg capsule [Pharmacy Med Name: RAMIPRIL 10MG CAPS] 30 capsule 0 Sig: TAKE ONE CAPSULE BY MOUTH EVERY DAY Please review and advise. Andrew Ponce MA [facility]04-07-2025 Miscellaneous Notes* Telephone Encounter - Andrew Ponce MA - 05/15/2024 8:01 AM EDT pharm requesting refills: Last office visit 12/27/2023. Last refill 04/10/2024 nov none Requested Prescriptions Pending Prescriptions Disp Refills ramipril (ALTACE) 10 mg capsule [Pharmacy Med Name: RAMIPRIL 10MG CAPS] 30 capsule 0 Sig: TAKE ONE CAPSULE BY MOUTH EVERY DAY Please review and advise. 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 He denies other symptoms patient would like to know if he needs a med change Giulia Rogel MA documented in this encounterDunlap [facility] Hospital03-05-2025 NoteHNO ID: [id number] Author: VANDANA EDWARDS, ? Service: ? Author Type: Nurse Practitioner Type: Progress Notes Filed: 04/13/2024 11:09 Note Text: Progress Note Analilia Melendrez 1960 Encounter date: 04/12/2024 HPI: Analilia Melendrez is a 63 year old male with PMHx, CKD, Aortic aneurysm, chronic pancreatitis, cirrhosis, T2DM, alcohol abuse, nicotine dependence. Pt referred by PCP, Marianna Wagner for evaluation of anemia. Mr. Melendrez presents today with family. He reports feeling ok. Denies fevers, chills or NS. Denies bony aches or pains. No rash, skin changes or neuropathy. Endorses lack of appetite, unintentional weight loss over the last few months. Now chronic diarrhea at min 6 times per day, orange. Occasionally bloody. On a bad day >10x per day. This has been ongoing for several months. Tested positive for cdiff 10/13/2024. He believes he took all abx as prescribed. He did not notice any difference in diarrhea. He states that he was unaware that he had c diff. Had to cancel last GI visit as he did not have a ride. He states he was told to go to the ED if no improvements however no further work up was performed. No colonoscopy or EDG in the last 20 years. He has been told that he had bleeding ulcers. Denies dark or tarry stools. Denies abd pains. Denies hematuria, hematemesis. No urinary issues. No SOB, CP, palpitations. Occasional headaches, uses NSAIDs. Occasional reflux. He was in residential for 6 weeks in june for rehab from seizure/TIA. Tolerating PO iron. No personal or family hx or bleeding disorders. Brother hx of leukemia. Interval Hx: Mr. Melendrez presents today for follow up and lab review. He denies any new issues. Had scopes last week. A few biopsies taken, no malignancy. He notes that he had poor prep and will need to repeat scopes in 1 year. Chronic pancreatis. Denies any current alcohol use. No bleeding, denies hematuria. No dark or tarry stools. Continues to have diarrhea, taking pancreatic enzymes though he states he's not sure they help any. Denies bleeding. Mostly orange. No fevers, chills or NS. Fatigue is generally stable. No neuropathy. Appetite is good. Reports that he drinks coffee all day. He believes he took his BP medication this morning, but can't be sure. He thinks they are in his pill container. States he has had headaches for a long time. No other symptoms. PAST MEDICAL HISTORY Diagnosis Date Alcohol-induced chronic pancreatitis (HCC) Anxiety Aortic aneurysm (HCC) S/P Repair Aortic valve disorder S/P Replacement CAD (coronary artery disease) nonobstructive Chronic kidney disease, stage III (moderate) (HCC) Clostridioides difficile infection Coronary artery disease Depression Diabetes mellitus, type II (HCC) Insulin dependent History of alcohol abuse Hx of ascending aorta repair Hyperlipidemia Hypertension Non-ST elevation [place] (NSTEMI) (HCC) 06/24 Pacemaker Paroxysmal atrial fibrillation (HCC) RBBB (right bundle branch block) S/P aortic valve replacement [facility]. Wero mechanical Syncope Tachy-fernando syndrome (HCC) Tobacco abuse chronic Tobacco user Type 2 diabetes mellitus (HCC) PAST SURGICAL HISTORY Procedure Laterality Date ABD AORTIC ANEURYSM REPAIR ASCENDING AORTA GRAFT W/AORTIC ROOT COLONOSCOPY SCREENING In [place] COLONOSCOPY SCREENING 04/05/2024 Internal hemorrhoids, poor prep CORONARY ARTERY BYPASS GRAFT HX 2016 2005 EGD W/O [facility] SPEC VARICIES INJ 04/05/2024 Antral and fundic mucosa with minimal chronic inflammation HEART CATHETERIZATION 06/24/2016 HEART VALVE REPLACEMENT 2017 Aortic x2 ;2014 HERNIA REPAIR HX PACEMAKER 06/25/2016 REPLACEMENT AORTIC VALVE W BYPASS Current Outpatient Medications Medication Sig Dispense Refill atorvastatin (LIPITOR) 40 mg tablet TAKE ONE TABLET BY MOUTH EVERY DAY 30 tablet 0 metoprolol tartrate, short acting, (LOPRESSOR) 50 mg tablet TAKE ONE TABLET BY MOUTH TWICE A DAY 60 tablet 0 ramipril (ALTACE) 10 mg capsule TAKE ONE CAPSULE BY MOUTH EVERY DAY 30 capsule 0 insulin glargine 100 unit/mL (3 mL) Inject 15 Units subcutaneously once daily. (Patient taking differently: Inject 10 Units subcutaneously once daily.) 1 Each 0 metFORMIN ER (GLUCOPHAGE XR) 500 mg 24 hr tablet Take 2 tablets by mouth daily with breakfast. [address] (PROTONIX) 40 mg tablet TAKE ONE TABLET BY MOUTH TWICE A DAY 30 MINUTES BEFORE EATING 60 tablet 2 FARXIGA 10 mg tablet Take 1 tablet by mouth daily with breakfast. 90 tablet 1 ferrous sulfate (FEROSUL) 325 mg (65 mg iron) tablet TAKE ONE TABLET BY MOUTH EVERY DAY 90 tablet 1 pejhan-reiblsji-soykgot (CREON 36) 36,000-114,000- 180,000 unit delayed release capsule Take 2 pills by mouth with first bite of meal and take 1 pill with snacks. Max 10 per day. 300 capsule 3 Cholecalciferol, Vitamin D3, (VITAMIN D-3) 50 mcg (2,000 unit) cap Take 1 capsule by mouth once daily. 90 capsule (more content not included)...[facility]03-05-2025 History of Present illness Narrative* Vandana Edwards - 04/12/2024 9:32 AM EST Progress Note Analilia Melendrez 1960 Encounter date: 04/12/2024 HPI: Analilia Melendrez is a 63 year old male with PMHx, CKD, Aortic aneurysm, chronic pancreatitis, cirrhosis, T2DM, alcohol abuse, nicotine dependence. Pt referred by PCP, Marianna Wagner for evaluation of anemia. Mr. Melendrez presents today with family. He reports feeling ok. Denies fevers, chills or NS. Denies bony aches or pains. No rash, skin changes or neuropathy. Endorses lack of appetite, unintentional weight loss over the last few months. Now chronic diarrhea at min 6 times per day, orange. Occasionally bloody. On a bad day >10x per day. This has been ongoing for several months. Tested positive for cdiff 10/13/2024. He believes he took all abx as prescribed. He did not notice any difference in diarrhea. He states that he was unaware that he had c diff. Had to cancel last GI visit as he did not have a ride. He states he was told to go to the ED if no improvements however no further work up was performed. No colonoscopy or EDG inthe last 20 years. He has been told that he had bleeding ulcers. Denies dark or tarry stools. Denies abd pains. Denies hematuria, hematemesis. No urinary issues. No SOB, CP, palpitations. Occasional headaches, uses NSAIDs. Occasional reflux. He was in residential for 6 weeks in june for rehab from seizure/TIA. Tolerating PO iron. No personal or family hx or bleeding disorders. Brother hx of leukemia. Interval Hx: Mr. Melendrez presents today for follow up and lab review. He denies any new issues. Had scopes lastweek. A few biopsies taken, no malignancy. He notes that he had poor prep and will need to repeat scopes in 1 year. Chronic pancreatis. Denies any current alcohol use. No bleeding, denies hematuria. No dark or tarry stools. Continues to have diarrhea, taking pancreatic enzymes though he states he's not sure they help any. Denies bleeding. Mostly orange. No fevers, chills or NS. Fatigue is generally stable. No neuropathy. Appetite is good. Reports that he drinks coffee all day. He believes he took his BP medication this morning, but can't be sure. He thinks they are in his pill container. States he has had headaches for a long time. No other symptoms. PAST MEDICAL HISTORY Diagnosis Date Alcohol-induced chronic pancreatitis (HCC) Anxiety Aortic aneurysm (HCC) S/P Repair Aortic valve disorder S/P Replacement CAD (coronary artery disease) nonobstructive Chronic kidney disease, stage III (moderate) (HCC) Clostridioides difficile infection Coronary artery disease Depression Diabetes mellitus, type II (HCC) Insulin dependent History of alcohol abuse Hx of ascending aorta repair Hyperlipidemia Hypertension Non-ST elevation [place] (NSTEMI) (HCC) 06/24 Pacemaker Paroxysmal atrial fibrillation (HCC) RBBB (right bundle branch block) S/P aortic valve replacement [employer] [facility] mechanical Syncope Tachy-fernando syndrome (HCC) Tobacco abuse chronic Tobacco user Type 2 diabetes mellitus (HCC) PAST SURGICAL HISTORY Procedure Laterality Date ABD AORTIC ANEURYSM REPAIR ASCENDING AORTA GRAFT W/AORTIC ROOT COLONOSCOPY SCREENING In [place] COLONOSCOPY SCREENING 04/05/2024 Internal hemorrhoids, poor prep CORONARY ARTERY BYPASS GRAFT HX 2016 2005 EGD W/O [facility] SPEC VARICIES INJ 04/05/2024 Antral and fundic mucosa with minimal chronic inflammation HEART CATHETERIZATION 06/24/2016 HEART VALVE REPLACEMENT 2017 Aortic x2 ;2015 HERNIA REPAIR HX PACEMAKER 06/25/2016 REPLACEMENT AORTIC VALVE W BYPASS Current Outpatient Medications Medication Sig Dispense Refill atorvastatin (LIPITOR) 40 mg tablet TAKE ONE TABLET BY MOUTH EVERY DAY 30 tablet 0 metoprolol tartrate, short acting, (LOPRESSOR) 50 mg tablet TAKE ONE TABLET BY MOUTH TWICE A DAY 60tablet 0 ramipril (ALTACE) 10 mg capsule TAKE ONE CAPSULE BY MOUTH EVERY DAY 30 capsule 0 insulin glargine 100 unit/mL (3 mL) Inject 15 Units subcutaneously once daily. (Patient taking differently: Inject 10 Units subcutaneously once daily.) 1 Each 0 metFORMIN ER (GLUCOPHAGE XR) 500 mg 24 hr tablet Take 2 tablets by mouth daily with breakfast. [address] (PROTONIX) 40 mg tablet TAKE ONE TABLET BY MOUTH TWICE A DAY 30 MINUTES BEFORE EATING 60 tablet 2 FARXIGA 10 mg tablet Take 1 tablet by mouth daily with breakfast. 90 tablet 1 ferrous sulfate (FEROSUL) 325 mg (65 mg iron) tablet TAKE ONE TABLET BY MOUTH EVERY DAY 90 tablet 1 oqytnz-vyjrsnsn-cdojdpp (CREON 36) 36,000-114,000- 180,000 unit delayed release capsule Take 2 pills by mouth with first bite of meal and take 1 pill with snacks. Max 10 per day. 300 capsule 3 Cholecalciferol, Vitamin D3, (VITAMIN D-3) 50 mcg (2,000 unit) cap Take 1 capsule by mouth once daily. 90 capsule 1 dicyclomine (BENTYL) 10 mg capsule Take 1 capsule by mouth before meals and at bedtime. 120 capsule2 MULTIVITAMIN ORAL Take 1 tablet by mouth once daily. UNIFINE PENTIPS 31 gauge x 3/16 USE ONE 3 TIMES DAILY 100 Each 0 Blood-Glucose Sensor (FREESTYLE MANGO 3 SENSOR) daniel Apply new sensor every fourteen (14) days to upper arm. 6 Each 4 Blood-Glucose Meter,Continuous (FREESTYLE MANGO 3 READER) [facility] Use to check blood sugar at least four (4) times daily. 1 Each 0 No current facility-administered medications for this visit. ALLERGIES No Known Allergies FAMILY HISTORY Problem Relation Age of Onset Dementia Mother Coronary Artery Disease Father Colon Cancer No Family History Social History Tobacco Use Smoking status: Every Day Types: Cigarettes Smokeless tobacco: Never Tobacco comments: Pt smoked 1 pack daily for x 40 years, pt has cut back to 1 pack per week x 1 year Vaping Use Vaping status: Never Used Substance Use Topics Alcohol use: Yes Alcohol/week: 2.0 standard drinks of alcohol Types: 2 Cans of beer per week Drug use: Never Review of Systems: Negative except as noted in HPI reviewed 04/12/2024 Physical Exam: BP 180/117 Pulse 60 Temp (Src) 97.1 (Temporal) Wt 144 lb (65.3kg) SpO2 98% General: Age-appropriate well developed. Appears thin. HEENT: Normocephalic, no sclera icterus, external ears normal, Chest: Clear bilaterally, no wheezes, not labored. Heart: RRR Abdomen: Soft, nondistended, bowel sounds present Extremities: No cyanosis, clubbing, gross deformities Neurological: No focal deficits. Skin: Warm and dry with no rashes or ulcerations. Hematologic: no petechiae. Psychiatric: Alert and oriented x3. Emotional well-being assessment was performed. Pt denies depression, distress, and or problems with coping or adjustment. Lab Results Component Value Date WBC 5.35 04/12/2024 HB 11.9 (L) 04/12/2024 MCV 100.0 04/12/2024 PLT 164 04/12/2024 Lab Results Component Value Date NA 142 10/15/2023 K 4.8 10/15/2023 CO2 28 10/15/2023 BUN 14 10/15/2023 CREAT 1.55 (H) 10/15/2023 TBILI <0.2 (L) 10/15/2023 TPROT 5.2 (L) 10/15/2023 ALB 2.4 (L) 10/15/2023 ALKPHOS 134 (H) 10/15/2023 ALT 26 10/15/2023 AST 64 (H) 10/15/2023 Assessment and Plan: Mr. Melendrez is a pleasant 63 year old gentleman presenting as a new anemia consult. Anemia - Reviewed with patient and family recent labs results. CBC is relatively stable. Discussed potential causes for anemia including chronic blood loss, malabsorption, kidney and liver dysfunction. - CKD, however this may also be exacerbated by infection. Not a candidate for epo at this time. - would ultimately recommend that he see GI to evaluate chronic blood loss and diarrhea. - pt reports several months of diarrhea, bloody, weight loss. - tested + for cdiff 10/14/2023, believes he completed abx however the diarrhea has continued. - transportation issues. - pt reports hx of bleeding intestinal and stomach ulcers. - no scopes in the last 20 years prior - scopes on 04/05, poor prep, advised follow up in 1 year. Bx were normal - continues to have diarrhea, abd pain with intake, notes chronic pancreatitis. - Labs have improved at this time. Though I suspect some level of malabsorption with chronic diarrhea. - would continue to monitor labs and OV in 3 months. Elevated BP - Pt is not sure that he took his BP medications this am, has had coffee - advised to take BP meds if he has not already - he does not check BP at home - advised to follow up with PCP re: BP chau, - advised that if he has symptoms of BARRERA, CP, palpitations, SOB or vision changes that he should present to ED, pt acknowledged. Advised to call with any questions or concerns in the meantime. Vandana Edwards APRN.SPLUNK D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 I spent a total of 30 minutes on the date of the service which included preparing to see the patient, [id number] patient care, completing clinical documentation, counseling and educating the patient/family/caregiver, independently interpreting results (not separately reported), and communicating results to the patient/family/caregiver. Portions of this note including HPI, ROS, impression/plan may have been copied forward as to provide important historical information essential in contributing to medical decision making. Documentation has been reviewed and edited as necessary to support clinical decision making for today's visit and to reflect my own independent evaluation of this patient. documented in this [facility]Dun[facility]03-[facility] Telephone encounter Note * Telephone Encounter - Suzi Haynes MA - 04/10/2024 11:06 AM EST pharmacy electronically requesting refills as follows: Last seen 12/27/23 . Last refill all 03/08/24 . Requested Prescriptions Pending Prescriptions Disp Refills atorvastatin (LIPITOR) 40 mg tablet [Pharmacy Med Name: ATORVASTATIN CALCIUM 40MG TABS] 30 tablet 0 Sig: TAKE ONE TABLET BY MOUTH EVERY DAY metoprolol tartrate, short acting, (LOPRESSOR) 50 mg tablet [Pharmacy Med Name: METOPROLOL [id number] TABS] 60 tablet 0 Sig: TAKE ONE TABLET BY MOUTH TWICE A DAY ramipril (ALTACE) 10 mg capsule [Pharmacy Med Name: RAMIPRIL 10MG CAPS] 30 capsule 0 Sig: TAKE ONE CAPSULE BY MOUTH EVERY DAY Please review and advise. Suzi Haynes MA [facility]03-03-2025 Miscellaneous Notes* Telephone Encounter - Suzi Haynes MA - 04/10/2024 11:06 AM EST pharmacy electronically requesting refills as follows: Last seen 12/27/23 . Last refill all 03/08/24 . Requested Prescriptions Pending Prescriptions Disp Refills atorvastatin (LIPITOR) 40 mg tablet [Pharmacy Med Name: ATORVASTATIN CALCIUM 40MG TABS] 30 tablet 0 Sig: TAKE ONE TABLET BY MOUTH EVERY DAY metoprolol tartrate, short acting, (LOPRESSOR) 50 mg tablet [Pharmacy Med Name: METOPROLOL [id number] TABS] 60 tablet 0 Sig: TAKE ONE TABLET BY MOUTH TWICE A DAY ramipril (ALTACE) 10 mg capsule [Pharmacy Med Name: RAMIPRIL 10MG CAPS] 30 capsule 0 Sig: TAKE ONE CAPSULE BY MOUTH EVERY DAY Please review and advise. Suzi Haynes MA documented in this encounterDunlap [facility] Hospital02-26-2025 Attending History and physical note* Phoebe Vazquez MD - 04/05/2024 2:15 PM EST UPDATED HISTORY AND PHYSICAL EXAMINATION SERVICE DATE: 04/05/2024 SERVICE TIME: 12:15 Participation of a fellow, resident, medical student, or advanced practice provider student in performing the sensitive examination was discussed with the patient or authorized sales representative sales manager. The patient or authorized sales representative sales manager has agreed to proceed with the sensitive examination. (Sensitive examination includes inspection and/or palpation of the breasts, pelvis, prostate and anorectal regions) PHYSICAL EXAM MUST BE COMPLETED ON ADMISSION The History and Physical (completed in the past 30 days) has been reviewed and the patient has beenexamined. The contents accurately reflect the patient's condition with the following additions or revisions since the H&P was completed. Examination indicates no changes. This H&P can be found in the Electronic Medical Record . SIGNATURE: Phoebe Vazquez MD PATIENT NAME: Analilia Melendrez DATE: April 05, 2024 TIME: 12:15 PM Source Note - Phoebe Vazquez MD - 04/05/2024 2:15 PM EST HPI: Analilia Melendrez is a 63 year old male with hx of AVR (bovine), pacemaker, DMII, HTN, chronic pancreatitis, GERD, HLD, CAD who presents for Anemia (Diarrhea and blood in the stool). He is anemic with hgb 10/hct 31.8 with macrocytic indices. He has had more fatigue and SOB. He has had epigastric pain for the past 6 months and it radiates to his back. If he is hungry, it hurts worse. He is losing a lot of weight (20 pounds over the past 6 months). He has no appetite. Denies any nausea or vomiting. Has diarrhea all the time and it is like bile. Denies any gerd or heartburn. No hx of PUD. No prior EGD. Last colonoscopy was many years ago and he states he had several polyps. CT pancreas 12/08/23 that showed changes of chronic pancreatitis; no identifiable pancreatic mass. He did have c.diff and was treated for this. Record Review: [facility] / Outside records reviewed. Latest Ref Rng 10/15/2023 WBC 3.70 - 11.00 k/uL 4.67 RBC 4.20 - 6.00 m/uL 2.68 (L) Hemoglobin 13.0 - 17.0 g/dL 10.0 (L) Hematocrit 39.0 - 51.0 % 31.8 (L) MCV 80.0 - 100.0 fL 118.7 (H) MCH 26.0 - 34.0 pg 37.3 (H) MCHC 30.5 - 36.0 g/dL 31.4 RDW-CV 11.5 - 15.0 % 13.3 Platelet Count 150 - 400 k/uL 202 MPV 9.0 - 12.7 fL 11.6 NRBC /100 WBC 0.0 Absolute nRBC <0.01 k/uL <0.01 Neut% % 49.0 Abs Neut (ANC) 1.45 - 7.50 k/uL 2.29 Lymph% % 39.0 Abs Lymph 1.00 - 4.00 k/uL 1.82 Erath% % 11.0 Abs Erath <0.87 k/uL 0.51 Eosin% % 0.0 Abs Eosin <0.46 k/uL 0.00 Baso% % 0.0 Abs Baso <0.11 k/uL 0.00 Myelo% % 1.0 Left Shift Present Platelet Estimate Adequate Red Cell Morph Reviewed: see results of individual morphologies Ovalocytes Few RBC Fragments None Seen Few ! DTYPE Manual Protein, Total 6.3 - 8.0 g/dL 5.2 (L) Albumin 3.9 - 4.9 g/dL 2.4 (L) Calcium 8.5 - 10.2 mg/dL 7.9 (L) Bilirubin, Total 0.2 - 1.3 mg/dL <0.2 (L) Alkaline Phosphatase 38 - 113 U/L 134 (H) AST 14 - 40 U/L 64 (H) ALT 10 - 54 U/L 26 Glucose 74 - 99 mg/dL 130 (H) BUN 9 - 24 mg/dL 14 Creatinine 0.73 - 1.22 mg/dL 1.55 (H) Sodium 136 - 144 mmol/L 142 Potassium 3.7 - 5.1 mmol/L 4.8 Chloride 98 - 107 mmol/L 103 CO2 22 - 30 mmol/L 28 Anion Gap 8 - 15 mmol/L 11 eGFR >=60 mL/min/1.73m 51 (L) Iron 41 - 186 ug/dL 96 TIBC 232 - 386 ug/dL <113 (L) Transferrin Saturation 15.0 - 57.0 % >85.0 (H) Ferritin 30.3 - 565.7 ng/mL 630.0 (H) Folate >4.7 ng/mL 16.4 Vitamin B12 232 - 1,245 pg/mL 1,514 (H) Legend: (L) Low (H) High ! Abnormal PAST MEDICAL HISTORY PAST MEDICAL HISTORY Diagnosis Date Alcohol-induced chronic pancreatitis (HCC) Anxiety Aortic aneurysm (HCC) S/P Repair Aortic valve disorder S/P Replacement CAD (coronary artery disease) nonobstructive Chronic kidney disease, stage III (moderate) (HCC) Clostridioides difficile infection Coronary artery disease Depression Diabetes mellitus, type II (HCC) Insulin dependent History of alcohol abuse Hx of ascending aorta repair Hyperlipidemia Hypertension Non-ST elevation [place] (NSTEMI) (HCC) 06/24 Pacemaker Paroxysmal atrial fibrillation (HCC) RBBB (right bundle branch block) S/P aortic valve replacement [facility] Wero mechanical Syncope Tachy-fernando syndrome (HCC) Tobacco abuse chronic Tobacco user Type 2 diabetes mellitus (HCC) PAST SURGICAL HISTORY PAST SURGICAL HISTORY Procedure Laterality Date ABD AORTIC ANEURYSM REPAIR ASCENDING AORTA GRAFT W/AORTIC ROOT COLONOSCOPY SCREENING In [place] CORONARY ARTERY BYPASS GRAFT HX 2016 2005 HEART CATHETERIZATION 06/24/2016 HEART VALVE REPLACEMENT 2017 Aortic x2 ;2014 HERNIA REPAIR HX PACEMAKER 06/25/2016 REPLACEMENT AORTIC VALVE W BYPASS Allergies: ALLERGIES ALLERGIES No Known Allergies Medications: CURRENT MEDICATIONS Insulin [place], Disposable, (BD ULTRA-FINE NORBERTO PEN NEEDLE) 32 gauge x / 1 Each three times a day. metFORMIN (GLUCOPHAGE) 500 mg tablet Take 1 tablet by mouth daily with breakfast. Cholecalciferol, Vitamin D3, (VITAMIN D-3) 50 mcg (2,000 unit) cap Take 1 capsule by mouth once daily. ferrous sulfate 325 mg (65 mg iron) tablet Take 1 tablet by mouth once daily. Blood-Glucose Meter,Continuous (FREESTYLE MANGO 3 READER) misc Use to check blood sugar at least four (4) times daily. Blood-Glucose Sensor (FREESTYLE MANGO 3 SENSOR) daniel Apply new sensor every fourteen (14) days to upper arm. FARXIGA 10 mg tablet Take 1 tablet by mouth daily with breakfast. insulin glargine 100 unit/mL (3 mL) Inject 10 Units subcutaneously once daily. metoprolol tartrate, short acting, (LOPRESSOR) 50 mg tablet Take 1 tablet by mouth two times a day. ramipril (ALTACE) 10 mg capsule Take 10 mg by mouth once daily. pantoprazole DR (PROTONIX) 40 mg tablet Take 1 tablet by mouth two times a day. 30 minutes before eating. dicyclomine (BENTYL) 10 mg capsule Take 1 capsule by mouth before meals and at bedtime. atorvastatin (LIPITOR) 40 mg tablet TAKE 1 TABLET BY MOUTH ONCE DAILY. MULTIVITAMIN ORAL Take 1 tablet by mouth once daily. FAMILY HISTORY FAMILY HISTORY Problem Relation Age of Onset Dementia Mother Coronary Artery Disease Father Colon Cancer No Family History OCCUPATION & MARITAL STATUS Employer And Job Title: None on file Years Of Education Completed: Not specified Marital Status: Single SOCIAL HISTORY Social History Tobacco Use Smoking status: Every Day Types: Cigarettes Smokeless tobacco: Never Tobacco comments: Pt smoked 1 pack daily for x 40 years, pt has cut back to 1 pack per week x 1 year Vaping Use Vaping status: Never Used Substance Use Topics Alcohol use: Yes Alcohol/week: 2.0 standard drinks of alcohol Types: 2 Cans of beer per week Drug use: Never Review of Systems: Review of Systems Constitutional: Positive for appetite change, fatigue and unexpected weight change. HENT: Positive for hearing loss. Respiratory: Positive for shortness of breath. Cardiovascular: Positive for palpitations and leg swelling. Gastrointestinal: Positive for abdominal pain, blood in stool and diarrhea. Change in bowel habits, Gas All other systems reviewed and are negative. Are you taking any blood thinners? No Physical Examination: Pulse 70 Ht 5' 11 (1.80m) Wt 136 lb (61.7kg) BMI 18.98 kg/(m^2). Physical Exam Constitutional: Appearance: Normal appearance. HENT: Head: Normocephalic and atraumatic. Eyes: General: No scleral icterus. Cardiovascular: Rate and Rhythm: Normal rate and regular rhythm. Heart sounds: Murmur heard. Systolic murmur is present. Pulmonary: Breath sounds: Normal breath sounds. Abdominal: General: Abdomen is flat. Bowel sounds are normal. There is no distension. Palpations: Abdomen is soft. Tenderness: There is abdominal tenderness in the right lower quadrant and epigastric area. There isno guarding or rebound. Skin: General: Skin is warm and dry. Neurological: Mental Status: He is alert and oriented to person, place, and time. Psychiatric: Mood and Affect: Mood normal. Behavior: Behavior normal. ASSESSMENT: (D64.9) Anemia, unspecified type (primary encounter diagnosis) (R63.4) Weight loss (K86.1) Chronic pancreatitis, unspecified pancreatitis type (HCC) (R10.13) Epigastric pain (R10.31) Right lower quadrant abdominal pain 1. Anemia, unspecified type - Rule out PU/DU, malignancy - plan for EGD and colonoscopy for further evaluation - COLONOSCOPY DIAGNOSTIC; Future - EGD DIAGNOSTIC; Future 2. Weight loss - could be related to chronic pancreatitis. Will rule out any malignancy or other GI path. - COLONOSCOPY DIAGNOSTIC; Future - EGD DIAGNOSTIC; Future 3. Chronic pancreatitis, unspecified pancreatitis type (HCC) - could be contributing to pain, weight loss and diarrhea. - start Creon 2 pills with meals and 1 pill with snacks - [id number] (CREON 36) 36,000-114,000- 180,000 unit delayed release capsule; Take 2 pills by mouth with first bite of meal and take 1 pill with snacks. Max 10 per day. Dispense: 300 capsule; Refill: 3 - EGD DIAGNOSTIC; Future 4. Epigastric pain - continue with pantorpazole 40mg BID - EGD DIAGNOSTIC; Future 5. Right lower quadrant abdominal pain - colonoscopy Discussion/Plan/Recommendations: I have discussed the above with the patient. I have offered colonoscopy and EGD, possible biopsies I have explained the procedure to the patient. I have counseled the patient as to the risks of the procedure, including but not limited to: infection, bleeding, injury to any intrabdominal organs such as liver/spleen, perforation of the GI tract,inability to complete the procedure, complications of anesthesia, etc. - the patient understands. The patient wishes to proceed. I have answered all questions to the patient s satisfaction and the patient has no further questions. . [facility] Work Phone: [phone] History and physical note* Phoebe Vazquez MD - 04/05/2024 2:15 PM EST HPI: Analilia Melendrez is a 63 year old male with hx of AVR (bovine), pacemaker, DMII, HTN, chronic pancreatitis, GERD, HLD, CAD who presents for Anemia (Diarrhea and blood in the stool). He is anemic with hgb 10/hct 31.8 with macrocytic indices. He has had more fatigue and SOB. He has had epigastric pain for the past 6 months and it radiates to his back. If he is hungry, it hurts worse. He is losing a lot of weight (20 pounds over the past 6 months). He has no appetite. Denies any nausea or vomiting. Has diarrhea all the time and it is like bile. Denies any gerd or heartburn. No hx of PUD. No prior EGD. Last colonoscopy was many years ago and he states he had several polyps. CT pancreas 12/08/23 that showed changes of chronic pancreatitis; no identifiable pancreatic mass. He did have c.diff and was treated for this. Record Review: [facility] / Outside records reviewed. Latest Ref Rng 10/15/2023 WBC 3.70 - 11.00 k/uL 4.67 RBC 4.20 - 6.00 m/uL 2.68 (L) Hemoglobin 13.0 - 17.0 g/dL 10.0 (L) Hematocrit 39.0 - 51.0 % 31.8 (L) MCV 80.0 - 100.0 fL 118.7 (H) MCH 26.0 - 34.0 pg 37.3 (H) MCHC 30.5 - 36.0 g/dL 31.4 RDW-CV 11.5 - 15.0 % 13.3 Platelet Count 150 - 400 k/uL 202 MPV 9.0 - 12.7 fL 11.6 NRBC /100 WBC 0.0 Absolute nRBC <0.01 k/uL <0.01 Neut% % 49.0 Abs Neut (ANC) 1.45 - 7.50 k/uL 2.29 Lymph% % 39.0 Abs Lymph 1.00 - 4.00 k/uL 1.82 Erath% % 11.0 Abs Erath <0.87 k/uL 0.51 Eosin% % 0.0 Abs Eosin <0.46 k/uL 0.00 Baso% % 0.0 Abs Baso <0.11 k/uL 0.00 Myelo% % 1.0 Left Shift Present Platelet Estimate Adequate Red Cell Morph Reviewed: see results of individual morphologies Ovalocytes Few RBC Fragments None Seen Few ! DTYPE Manual Protein, Total 6.3 - 8.0 g/dL 5.2 (L) Albumin 3.9 - 4.9 g/dL 2.4 (L) Calcium 8.5 - 10.2 mg/dL 7.9 (L) Bilirubin, Total 0.2 - 1.3 mg/dL <0.2 (L) Alkaline Phosphatase 38 - 113 U/L 134 (H) AST 14 - 40 U/L 64 (H) ALT 10 - 54 U/L 26 Glucose 74 - 99 mg/dL 130 (H) BUN 9 - 24 mg/dL 14 Creatinine 0.73 - 1.22 mg/dL 1.55 (H) Sodium 136 - 144 mmol/L 142 Potassium 3.7 - 5.1 mmol/L 4.8 Chloride 98 - 107 mmol/L 103 CO2 22 - 30 mmol/L 28 Anion Gap 8 - 15 mmol/L 11 eGFR >=60 mL/min/1.73m 51 (L) Iron 41 - 186 ug/dL 96 TIBC 232 - 386 ug/dL <113 (L) Transferrin Saturation 15.0 - 57.0 % >85.0 (H) Ferritin 30.3 - 565.7 ng/mL 630.0 (H) Folate >4.7 ng/mL 16.4 Vitamin B12 232 - 1,245 pg/mL 1,514 (H) Legend: (L) Low (H) High ! Abnormal PAST MEDICAL HISTORY PAST MEDICAL HISTORY Diagnosis Date Alcohol-induced chronic pancreatitis (HCC) Anxiety Aortic aneurysm (HCC) S/P Repair Aortic valve disorder S/P Replacement CAD (coronary artery disease) nonobstructive Chronic kidney disease, stage III (moderate) (HCC) Clostridioides difficile infection Coronary artery disease Depression Diabetes mellitus, type II (HCC) Insulin dependent History of alcohol abuse Hx of ascending aorta repair Hyperlipidemia Hypertension Non-ST elevation [place] (NSTEMI) (HCC) 06/24 Pacemaker Paroxysmal atrial fibrillation (HCC) RBBB (right bundle branch block) S/P aortic valve replacement [facility] Wero mechanical Syncope Tachy-fernando syndrome (HCC) Tobacco abuse chronic Tobacco user Type 2 diabetes mellitus (HCC) PAST SURGICAL HISTORY PAST SURGICAL HISTORY Procedure Laterality Date ABD AORTIC ANEURYSM REPAIR ASCENDING AORTA GRAFT W/AORTIC ROOT COLONOSCOPY SCREENING In [place] CORONARY ARTERY BYPASS GRAFT HX 2016 2005 HEART CATHETERIZATION 06/24/2016 HEART VALVE REPLACEMENT 2017 Aortic x2 ;2014 HERNIA REPAIR HX PACEMAKER 06/25/2016 REPLACEMENT AORTIC VALVE W BYPASS Allergies: ALLERGIES ALLERGIES No Known Allergies Medications: CURRENT MEDICATIONS Insulin [place], Disposable, (BD ULTRA-FINE NORBERTO PEN NEEDLE) 32 gauge x / 1 Each three times a day. metFORMIN (GLUCOPHAGE) 500 mg tablet Take 1 tablet by mouth daily with breakfast. Cholecalciferol, Vitamin D3, (VITAMIN D-3) 50 mcg (2,000 unit) cap Take 1 capsule by mouth once daily. ferrous sulfate 325 mg (65 mg iron) tablet Take 1 tablet by mouth once daily. Blood-Glucose Meter,Continuous (FREESTYLE MANGO 3 READER) [facility] Use to check blood sugar at least four (4) times daily. Blood-Glucose Sensor (FREESTYLE MANGO 3 SENSOR) daniel Apply new sensor every fourteen (14) days to upper arm. FARXIGA 10 mg tablet Take 1 tablet by mouth daily with breakfast. insulin glargine 100 unit/mL (3 mL) Inject 10 Units subcutaneously once daily. metoprolol tartrate, short acting, (LOPRESSOR) 50 mg tablet Take 1 tablet by mouth two times a day. ramipril (ALTACE) 10 mg capsule Take 10 mg by mouth once daily. pantoprazole DR (PROTONIX) 40 mg tablet Take 1 tablet by mouth two times a day. 30 minutes before eating. dicyclomine (BENTYL) 10 mg capsule Take 1 capsule by mouth before meals and at bedtime. atorvastatin (LIPITOR) 40 mg tablet TAKE 1 TABLET BY MOUTH ONCE DAILY. MULTIVITAMIN ORAL Take 1 tablet by mouth once daily. FAMILY HISTORY FAMILY HISTORY Problem Relation Age of Onset Dementia Mother Coronary Artery Disease Father Colon Cancer No Family History OCCUPATION & MARITAL STATUS Employer And Job Title: None on file Years Of Education Completed: Not specified Marital Status: Single SOCIAL HISTORY Social History Tobacco Use Smoking status: Every Day Types: Cigarettes Smokeless tobacco: Never Tobacco comments: Pt smoked 1 pack daily for x 40 years, pt has cut back to 1 pack per week x 1 year Vaping Use Vaping status: Never Used Substance Use Topics Alcohol use: Yes Alcohol/week: 2.0 standard drinks of alcohol Types: 2 Cans of beer per week Drug use: Never Review of Systems: Review of Systems Constitutional: Positive for appetite change, fatigue and unexpected weight change. HENT: Positive for hearing loss. Respiratory: Positive for shortness of breath. Cardiovascular: Positive for palpitations and leg swelling. Gastrointestinal: Positive for abdominal pain, blood in stool and diarrhea. Change in bowel habits, Gas All other systems reviewed and are negative. Are you taking any blood thinners? No Physical Examination: Pulse 70 Ht 5' 11 (1.80m) Wt 136 lb (61.7kg) BMI 18.98 kg/(m^2). Physical Exam Constitutional: Appearance: Normal appearance. HENT: Head: Normocephalic and atraumatic. Eyes: General: No scleral icterus. Cardiovascular: Rate and Rhythm: Normal rate and regular rhythm. Heart sounds: Murmur heard. Systolic murmur is present. Pulmonary: Breath sounds: Normal breath sounds. Abdominal: General: Abdomen is flat. Bowel sounds are normal. There is no distension. Palpations: Abdomen is soft. Tenderness: There is abdominal tenderness in the right lower quadrant and epigastric area. There isno guarding or rebound. Skin: General: Skin is warm and dry. Neurological: Mental Status: He is alert and oriented to person, place, and time. Psychiatric: Mood and Affect: Mood normal. Behavior: Behavior normal. ASSESSMENT: (D64.9) Anemia, unspecified type (primary encounter diagnosis) (R63.4) Weight loss (K86.1) Chronic pancreatitis, unspecified pancreatitis type (HCC) (R10.13) Epigastric pain (R10.31) Right lower quadrant abdominal pain 1. Anemia, unspecified type - Rule out PU/DU, malignancy - plan for EGD and colonoscopy for further evaluation - COLONOSCOPY DIAGNOSTIC; Future - EGD DIAGNOSTIC; Future 2. Weight loss - could be related to chronic pancreatitis. Will rule out any malignancy or other GI path. - COLONOSCOPY DIAGNOSTIC; Future - EGD DIAGNOSTIC; Future 3. Chronic pancreatitis, unspecified pancreatitis type (HCC) - could be contributing to pain, weight loss and diarrhea. - start Creon 2 pills with meals and 1 pill with snacks - rfniyf-rxkkubij-djfbpcb (CREON 36) 36,000-114,000- 180,000 unit delayed release capsule; Take 2 pills by mouth with first bite of meal and take 1 pill with snacks. Max 10 per day. Dispense: 300 capsule; Refill: 3 - EGD DIAGNOSTIC; Future 4. Epigastric pain - continue with pantorpazole 40mg BID - EGD DIAGNOSTIC; Future 5. Right lower quadrant abdominal pain - colonoscopy Discussion/Plan/Recommendations: I have discussed the above with the patient. I have offered colonoscopy and EGD, possible biopsies I have explained the procedure to the patient. I have counseled the patient as to the risks of the procedure, including but not limited to: infection, bleeding, injury to any intrabdominal organs such as liver/spleen, perforation of the GI tract,inability to complete the procedure, complications of anesthesia, etc. - the patient understands. The patient wishes to proceed. I have answered all questions to the patient s satisfaction and the patient has no further questions. . [facility]02-26-2025 History and physical note* Phoebe Vazquez MD - 04/05/2024 2:15 PM EST UPDATED HISTORY AND PHYSICAL EXAMINATION SERVICE DATE: 04/05/2024 SERVICE TIME: 12:15 Participation of a fellow, resident, medical student, or advanced practice provider student in performing the sensitive examination was discussed with the patient or authorized sales representative sales manager. The patient or authorized sales representative sales manager has agreed to proceed with the sensitive examination. (Sensitive examination includes inspection and/or palpation of the breasts, pelvis, prostate and anorectal regions) PHYSICAL EXAM MUST BE COMPLETED ON ADMISSION The History and Physical (completed in the past 30 days) has been reviewed and the patient has beenexamined. The contents accurately reflect the patient's condition with the following additions or revisions since the H&P was completed. Examination indicates no changes. This H&P can be found in the Electronic Medical Record . SIGNATURE: Phoebe Vazquez MD PATIENT NAME: Analilia Melendrez DATE: April 05, 2024 TIME: 12:15 PM Source Note - Phoebe Vazquez MD - 04/05/2024 2:15 PM EST HPI: Analilia Melendrez is a 63 year old male with hx of AVR (bovine), pacemaker, DMII, HTN, chronic pancreatitis, GERD, HLD, CAD who presents for Anemia (Diarrhea and blood in the stool). He is anemic with hgb 10/hct 31.8 with macrocytic indices. He has had more fatigue and SOB. He has had epigastric pain for the past 6 months and it radiates to his back. If he is hungry, it hurts worse. He is losing a lot of weight (20 pounds over the past 6 months). He has no appetite. Denies any nausea or vomiting. Has diarrhea all the time and it is like bile. Denies any gerd or heartburn. No hx of PUD. No prior EGD. Last colonoscopy was many years ago and he states he had several polyps. CT pancreas 12/08/23 that showed changes of chronic pancreatitis; no identifiable pancreatic mass. He did have c.diff and was treated for this. Record Review: [facility] / Outside records reviewed. Latest Ref Rng 10/15/2023 WBC 3.70 - 11.00 k/uL 4.67 RBC 4.20 - 6.00 m/uL 2.68 (L) Hemoglobin 13.0 - 17.0 g/dL 10.0 (L) Hematocrit 39.0 - 51.0 % 31.8 (L) MCV 80.0 - 100.0 fL 118.7 (H) MCH 26.0 - 34.0 pg 37.3 (H) MCHC 30.5 - 36.0 g/dL 31.4 RDW-CV 11.5 - 15.0 % 13.3 Platelet Count 150 - 400 k/uL 202 MPV 9.0 - 12.7 fL 11.6 NRBC /100 WBC 0.0 Absolute nRBC <0.01 k/uL <0.01 Neut% % 49.0 Abs Neut (ANC) 1.45 - 7.50 k/uL 2.29 Lymph% % 39.0 Abs Lymph 1.00 - 4.00 k/uL 1.82 Erath% % 11.0 Abs Erath <0.87 k/uL 0.51 Eosin% % 0.0 Abs Eosin <0.46 k/uL 0.00 Baso% % 0.0 Abs Baso <0.11 k/uL 0.00 Myelo% % 1.0 Left Shift Present Platelet Estimate Adequate Red Cell Morph Reviewed: see results of individual morphologies Ovalocytes Few RBC Fragments None Seen Few ! DTYPE Manual Protein, Total 6.3 - 8.0 g/dL 5.2 (L) Albumin 3.9 - 4.9 g/dL 2.4 (L) Calcium 8.5 - 10.2 mg/dL 7.9 (L) Bilirubin, Total 0.2 - 1.3 mg/dL <0.2 (L) Alkaline Phosphatase 38 - 113 U/L 134 (H) AST 14 - 40 U/L 64 (H) ALT 10 - 54 U/L 26 Glucose 74 - 99 mg/dL 130 (H) BUN 9 - 24 mg/dL 14 Creatinine 0.73 - 1.22 mg/dL 1.55 (H) Sodium 136 - 144 mmol/L 142 Potassium 3.7 - 5.1 mmol/L 4.8 Chloride 98 - 107 mmol/L 103 CO2 22 - 30 mmol/L 28 Anion Gap 8 - 15 mmol/L 11 eGFR >=60 mL/min/1.73m 51 (L) Iron 41 - 186 ug/dL 96 TIBC 232 - 386 ug/dL <113 (L) Transferrin Saturation 15.0 - 57.0 % >85.0 (H) Ferritin 30.3 - 565.7 ng/mL 630.0 (H) Folate >4.7 ng/mL 16.4 Vitamin B12 232 - 1,245 pg/mL 1,514 (H) Legend: (L) Low (H) High ! Abnormal PAST MEDICAL HISTORY PAST MEDICAL HISTORY Diagnosis Date Alcohol-induced chronic pancreatitis (HCC) Anxiety Aortic aneurysm (HCC) S/P Repair Aortic valve disorder S/P Replacement CAD (coronary artery disease) nonobstructive Chronic kidney disease, stage III (moderate) (HCC) Clostridioides difficile infection Coronary artery disease Depression Diabetes mellitus, type II (HCC) Insulin dependent History of alcohol abuse Hx of ascending aorta repair Hyperlipidemia Hypertension Non-ST elevation [place] (NSTEMI) (HCC) 06/24 Pacemaker Paroxysmal atrial fibrillation (HCC) RBBB (right bundle branch block) S/P aortic valve replacement St. Wero mechanical Syncope Tachy-fernando syndrome (HCC) Tobacco abuse chronic Tobacco user Type 2 diabetes mellitus (HCC) PAST SURGICAL HISTORY PAST SURGICAL HISTORY Procedure Laterality Date ABD AORTIC ANEURYSM REPAIR ASCENDING AORTA GRAFT W/AORTIC ROOT COLONOSCOPY SCREENING In [place] CORONARY ARTERY BYPASS GRAFT HX 2016 2005 HEART CATHETERIZATION 06/24/2016 HEART VALVE REPLACEMENT 2017 Aortic x2 ;2014 HERNIA REPAIR HX PACEMAKER 06/25/2016 REPLACEMENT AORTIC VALVE W BYPASS Allergies: ALLERGIES ALLERGIES No Known Allergies Medications: CURRENT MEDICATIONS Insulin [place], Disposable, (BD ULTRA-FINE NORBERTO PEN NEEDLE) 32 gauge x 5/32 1 Each three times a day. metFORMIN (GLUCOPHAGE) 500 mg tablet Take 1 tablet by mouth daily with breakfast. Cholecalciferol, Vitamin D3, (VITAMIN D-3) 50 mcg (2,000 unit) cap Take 1 capsule by mouth once daily. ferrous sulfate 325 mg (65 mg iron) tablet Take 1 tablet by mouth once daily. Blood-Glucose Meter,Continuous (FREESTYLE MANGO 3 READER) [facility] Use to check blood sugar at least four (4) times daily. Blood-Glucose Sensor (FREESTYLE MANGO 3 SENSOR) daniel Apply new sensor every fourteen (14) days to upper arm. FARXIGA 10 mg tablet Take 1 tablet by mouth daily with breakfast. insulin glargine 100 unit/mL (3 mL) Inject 10 Units subcutaneously once daily. metoprolol tartrate, short acting, (LOPRESSOR) 50 mg tablet Take 1 tablet by mouth two times a day. ramipril (ALTACE) 10 mg capsule Take 10 mg by mouth once daily. pantoprazole DR (PROTONIX) 40 mg tablet Take 1 tablet by mouth two times a day. 30 minutes before eating. dicyclomine (BENTYL) 10 mg capsule Take 1 capsule by mouth before meals and at bedtime. atorvastatin (LIPITOR) 40 mg tablet TAKE 1 TABLET BY MOUTH ONCE DAILY. MULTIVITAMIN ORAL Take 1 tablet by mouth once daily. FAMILY HISTORY FAMILY HISTORY Problem Relation Age of Onset Dementia Mother Coronary Artery Disease Father Colon Cancer No Family History OCCUPATION & MARITAL STATUS Employer And Job Title: None on file Years Of Education Completed: Not specified Marital Status: Single SOCIAL HISTORY Social History Tobacco Use Smoking status: Every Day Types: Cigarettes Smokeless tobacco: Never Tobacco comments: Pt smoked 1 pack daily for x 40 years, pt has cut back to 1 pack per week x 1 year Vaping Use Vaping status: Never Used Substance Use Topics Alcohol use: Yes Alcohol/week: 2.0 standard drinks of alcohol Types: 2 Cans of beer per week Drug use: Never Review of Systems: Review of Systems Constitutional: Positive for appetite change, fatigue and unexpected weight change. HENT: Positive for hearing loss. Respiratory: Positive for shortness of breath. Cardiovascular: Positive for palpitations and leg swelling. Gastrointestinal: Positive for abdominal pain, blood in stool and diarrhea. Change in bowel habits, Gas All other systems reviewed and are negative. Are you taking any blood thinners? No Physical Examination: Pulse 70 Ht 5' 11 (1.80m) Wt 136 lb (61.7kg) BMI 18.98 kg/(m^2). Physical Exam Constitutional: Appearance: Normal appearance. HENT: Head: Normocephalic and atraumatic. Eyes: General: No scleral icterus. Cardiovascular: Rate and Rhythm: Normal rate and regular rhythm. Heart sounds: Murmur heard. Systolic murmur is present. Pulmonary: Breath sounds: Normal breath sounds. Abdominal: General: Abdomen is flat. Bowel sounds are normal. There is no distension. Palpations: Abdomen is soft. Tenderness: There is abdominal tenderness in the right lower quadrant and epigastric area. There isno guarding or rebound. Skin: General: Skin is warm and dry. Neurological: Mental Status: He is alert and oriented to person, place, and time. Psychiatric: Mood and Affect: Mood normal. Behavior: Behavior normal. ASSESSMENT: (D64.9) Anemia, unspecified type (primary encounter diagnosis) (R63.4) Weight loss (K86.1) Chronic pancreatitis, unspecified pancreatitis type (HCC) (R10.13) Epigastric pain (R10.31) Right lower quadrant abdominal pain 1. Anemia, unspecified type - Rule out PU/DU, malignancy - plan for EGD and colonoscopy for further evaluation - COLONOSCOPY DIAGNOSTIC; Future - EGD DIAGNOSTIC; Future 2. Weight loss - could be related to chronic pancreatitis. Will rule out any malignancy or other GI path. - COLONOSCOPY DIAGNOSTIC; Future - EGD DIAGNOSTIC; Future 3. Chronic pancreatitis, unspecified pancreatitis type (HCC) - could be contributing to pain, weight loss and diarrhea. - start Creon 2 pills with meals and 1 pill with snacks - [id number] (CREON 36) 36,000-114,000- 180,000 unit delayed release capsule; Take 2 pills by mouth with first bite of meal and take 1 pill with snacks. Max 10 per day. Dispense: 300 capsule; Refill: 3 - EGD DIAGNOSTIC; Future 4. Epigastric pain - continue with pantorpazole 40mg BID - EGD DIAGNOSTIC; Future 5. Right lower quadrant abdominal pain - colonoscopy Discussion/Plan/Recommendations: I have discussed the above with the patient. I have offered colonoscopy and EGD, possible biopsies I have explained the procedure to the patient. I have counseled the patient as to the risks of the procedure, including but not limited to: infection, bleeding, injury to any intrabdominal organs such as liver/spleen, perforation of the GI tract,inability to complete the procedure, complications of anesthesia, etc. - the patient understands. The patient wishes to proceed. I have answered all questions to the patient s satisfaction and the patient has no further questions. . * Phoebe Vazquez MD - 04/05/2024 2:15 PM EST HPI: Analilia Melendrez is a 63 year old male with hx of AVR (bovine), pacemaker, DMII, HTN, chronic pancreatitis, GERD, HLD, CAD who presents for Anemia (Diarrhea and blood in the stool). He is anemic with hgb 10/hct 31.8 with macrocytic indices. He has had more fatigue and SOB. He has had epigastric pain for the past 6 months and it radiates to his back. If he is hungry, it hurts worse. He is losing a lot of weight (20 pounds over the past 6 months). He has no appetite. Denies any nausea or vomiting. Has diarrhea all the time and it is like bile. Denies any gerd or heartburn. No hx of PUD. No prior EGD. Last colonoscopy was many years ago and he states he had several polyps. CT pancreas 12/08/23 that showed changes of chronic pancreatitis; no identifiable pancreatic mass. He did have c.diff and was treated for this. Record Review: [facility] / Outside records reviewed. Latest Ref Rn 10/15/2023 WBC 3.70 - 11.00 k/uL 4.67 RBC 4.20 - 6.00 m/uL 2.68 (L) Hemoglobin 13.0 - 17.0 g/dL 10.0 (L) Hematocrit 39.0 - 51.0 % 31.8 (L) MCV 80.0 - 100.0 fL 118.7 (H) MCH 26.0 - 34.0 pg 37.3 (H) MCHC 30.5 - 36.0 g/dL 31.4 RDW-CV 11.5 - 15.0 % 13.3 Platelet Count 150 - 400 k/uL 202 MPV 9.0 - 12.7 fL 11.6 NRBC /100 WBC 0.0 Absolute nRBC <0.01 k/uL <0.01 Neut% % 49.0 Abs Neut (ANC) 1.45 - 7.50 k/uL 2.29 Lymph% % 39.0 Abs Lymph 1.00 - 4.00 k/uL 1.82 Erath% % 11.0 Abs Erath <0.87 k/uL 0.51 Eosin% % 0.0 Abs Eosin <0.46 k/uL 0.00 Baso% % 0.0 Abs Baso <0.11 k/uL 0.00 Myelo% % 1.0 Left Shift Present Platelet Estimate Adequate Red Cell Morph Reviewed: see results of individual morphologies Ovalocytes Few RBC Fragments None Seen Few ! DTYPE Manual Protein, Total 6.3 - 8.0 g/dL 5.2 (L) Albumin 3.9 - 4.9 g/dL 2.4 (L) Calcium 8.5 - 10.2 mg/dL 7.9 (L) Bilirubin, Total 0.2 - 1.3 mg/dL <0.2 (L) Alkaline Phosphatase 38 - 113 U/L 134 (H) AST 14 - 40 U/L 64 (H) ALT 10 - 54 U/L 26 Glucose 74 - 99 mg/dL 130 (H) BUN 9 - 24 mg/dL 14 Creatinine 0.73 - 1.22 mg/dL 1.55 (H) Sodium 136 - 144 mmol/L 142 Potassium 3.7 - 5.1 mmol/L 4.8 Chloride 98 - 107 mmol/L 103 CO2 22 - 30 mmol/L 28 Anion Gap 8 - 15 mmol/L 11 eGFR >=60 mL/min/1.73m 51 (L) Iron 41 - 186 ug/dL 96 TIBC 232 - 386 ug/dL <113 (L) Transferrin Saturation 15.0 - 57.0 % >85.0 (H) Ferritin 30.3 - 565.7 ng/mL 630.0 (H) Folate >4.7 ng/mL 16.4 Vitamin B12 232 - 1,245 pg/mL 1,514 (H) Legend: (L) Low (H) High ! Abnormal PAST MEDICAL HISTORY PAST MEDICAL HISTORY Diagnosis Date Alcohol-induced chronic pancreatitis (HCC) Anxiety Aortic aneurysm (HCC) S/P Repair Aortic valve disorder S/P Replacement CAD (coronary artery disease) nonobstructive Chronic kidney disease, stage III (moderate) (HCC) Clostridioides difficile infection Coronary artery disease Depression Diabetes mellitus, type II (HCC) Insulin dependent History of alcohol abuse Hx of ascending aorta repair Hyperlipidemia Hypertension Non-ST elevation [place] (NSTEMI) (HCC) 06/24 Pacemaker Paroxysmal atrial fibrillation (HCC) RBBB (right bundle branch block) S/P aortic valve replacement [facility] mechanical Syncope Tachy-fernando syndrome (HCC) Tobacco abuse chronic Tobacco user Type 2 diabetes mellitus (HCC) PAST SURGICAL HISTORY PAST SURGICAL HISTORY Procedure Laterality Date ABD AORTIC ANEURYSM REPAIR ASCENDING AORTA GRAFT W/AORTIC ROOT COLONOSCOPY SCREENING In [place] CORONARY ARTERY BYPASS GRAFT HX 2016 2005 HEART CATHETERIZATION 06/24/2016 HEART VALVE REPLACEMENT 2017 Aortic x2 ;2015 HERNIA REPAIR HX PACEMAKER 06/25/2016 REPLACEMENT AORTIC VALVE W BYPASS Allergies: ALLERGIES ALLERGIES No Known Allergies Medications: CURRENT MEDICATIONS Insulin [place], Disposable, (BD ULTRA-FINE NORBERTO PEN NEEDLE) 32 gauge x /32 1 Each three times a day. metFORMIN (GLUCOPHAGE) 500 mg tablet Take 1 tablet by mouth daily with breakfast. Cholecalciferol, Vitamin D3, (VITAMIN D-3) 50 mcg (2,000 unit) cap Take 1 capsule by mouth once daily. ferrous sulfate 325 mg (65 mg iron) tablet Take 1 tablet by mouth once daily. Blood-Glucose Meter,Continuous (FREESTYLE MANGO 3 READER) misc Use to check blood sugar at least four (4) times daily. Blood-Glucose Sensor (FREESTYLE MANGO 3 SENSOR) daniel Apply new sensor every fourteen (14) days to upper arm. FARXIGA 10 mg tablet Take 1 tablet by mouth daily with breakfast. insulin glargine 100 unit/mL (3 mL) Inject 10 Units subcutaneously once daily. metoprolol tartrate, short acting, (LOPRESSOR) 50 mg tablet Take 1 tablet by mouth two times a day. ramipril (ALTACE) 10 mg capsule Take 10 mg by mouth once daily. pantoprazole DR (PROTONIX) 40 mg tablet Take 1 tablet by mouth two times a day. 30 minutes before eating. dicyclomine (BENTYL) 10 mg capsule Take 1 capsule by mouth before meals and at bedtime. atorvastatin (LIPITOR) 40 mg tablet TAKE 1 TABLET BY MOUTH ONCE DAILY. MULTIVITAMIN ORAL Take 1 tablet by mouth once daily. FAMILY HISTORY FAMILY HISTORY Problem Relation Age of Onset Dementia Mother Coronary Artery Disease Father Colon Cancer No Family History OCCUPATION & MARITAL STATUS Employer And Job Title: None on file Years Of Education Completed: Not specified Marital Status: Single SOCIAL HISTORY Social History Tobacco Use Smoking status: Every Day Types: Cigarettes Smokeless tobacco: Never Tobacco comments: Pt smoked 1 pack daily for x 40 years, pt has cut back to 1 pack per week x 1 year Vaping Use Vaping status: Never Used Substance Use Topics Alcohol use: Yes Alcohol/week: 2.0 standard drinks of alcohol Types: 2 Cans of beer per week Drug use: Never Review of Systems: Review of Systems Constitutional: Positive for appetite change, fatigue and unexpected weight change. HENT: Positive for hearing loss. Respiratory: Positive for shortness of breath. Cardiovascular: Positive for palpitations and leg swelling. Gastrointestinal: Positive for abdominal pain, blood in stool and diarrhea. Change in bowel habits, Gas All other systems reviewed and are negative. Are you taking any blood thinners? No Physical Examination: Pulse 70 Ht 5' 11 (1.80m) Wt 136 lb (61.7kg) BMI 18.98 kg/(m^2). Physical Exam Constitutional: Appearance: Normal appearance. HENT: Head: Normocephalic and atraumatic. Eyes: General: No scleral icterus. Cardiovascular: Rate and Rhythm: Normal rate and regular rhythm. Heart sounds: Murmur heard. Systolic murmur is present. Pulmonary: Breath sounds: Normal breath sounds. Abdominal: General: Abdomen is flat. Bowel sounds are normal. There is no distension. Palpations: Abdomen is soft. Tenderness: There is abdominal tenderness in the right lower quadrant and epigastric area. There isno guarding or rebound. Skin: General: Skin is warm and dry. Neurological: Mental Status: He is alert and oriented to person, place, and time. Psychiatric: Mood and Affect: Mood normal. Behavior: Behavior normal. ASSESSMENT: (D64.9) Anemia, unspecified type (primary encounter diagnosis) (R63.4) Weight loss (K86.1) Chronic pancreatitis, unspecified pancreatitis type (HCC) (R10.13) Epigastric pain (R10.31) Right lower quadrant abdominal pain 1. Anemia, unspecified type - Rule out PU/DU, malignancy - plan for EGD and colonoscopy for further evaluation - COLONOSCOPY DIAGNOSTIC; Future - EGD DIAGNOSTIC; Future 2. Weight loss - could be related to chronic pancreatitis. Will rule out any malignancy or other GI path. - COLONOSCOPY DIAGNOSTIC; Future - EGD DIAGNOSTIC; Future 3. Chronic pancreatitis, unspecified pancreatitis type (HCC) - could be contributing to pain, weight loss and diarrhea. - start Creon 2 pills with meals and 1 pill with snacks - zstorf-xvhrqvdr-wxsgjmw (CREON 36) 36,000-114,000- 180,000 unit delayed release capsule; Take 2 pills by mouth with first bite of meal and take 1 pill with snacks. Max 10 per day. Dispense: 300 capsule; Refill: 3 - EGD DIAGNOSTIC; Future 4. Epigastric pain - continue with pantorpazole 40mg BID - EGD DIAGNOSTIC; Future 5. Right lower quadrant abdominal pain - colonoscopy Discussion/Plan/Recommendations: I have discussed the above with the patient. I have offered colonoscopy and EGD, possible biopsies I have explained the procedure to the patient. I have counseled the patient as to the risks of the procedure, including but not limited to: infection, bleeding, injury to any intrabdominal organs such as liver/spleen, perforation of the GI tract,inability to complete the procedure, complications of anesthesia, etc. - the patient understands. The patient wishes to proceed. I have answered all questions to the patient s satisfaction and the patient has no further questions. . documented in this encounterDunlap [facility] Hospital02-26-[facility]25 History of Present illness Narrative* Marta Rosado Radio Television Technical Director - 04/05/2024 2:15 PM ESTSummary: Pacemaker Check Pacemaker checked with [employer] and data transmitted. Spoke to [facility] who will fax report directly [facility]. Floor notified. documented in this encounterDunlap Memorial Hospital02-26-2025 NoteHNO ID: [id number] Author: MARTA ROSADO Radio Television Technical Director Service: Clinical Cardiology Author Type: Radio Television Technical Director Type: Progress Notes Filed: 04/05/2024 11:41 Note Text: Summary: Pacemaker Check Pacemaker checked with [employer] and data transmitted. Spoke to rep who will fax report directly to the floor. Floor notified.[facility] [id number] Telephone encounter Note* Telephone Encounter - Sigrid Arias RN - 03/31/2024 8:47 AM EST Patient called in and left message, would like to speak to someone regarding medication and prep prior to procedure next week. Attempted callback, no answer, LVM with CB number to office [facility]02-21-20[facility] Miscellaneous Notes* Telephone Encounter - Sigrid Arias RN - 03/31/2024 8:47 AM EST Patient called in and left message, would like to speak to someone regarding medication and prep prior to procedure next week. Attempted callback, no answer, LVM with CB number to office documented in this encounterDunlap [facility] Hospital02-19-2025 Telephone encounter Note * Telephone Encounter - Tiara Foote - 03/29/2024 1:40 PM EST I called and spoke to Analilia who did not realize he had these appointments scheduled today, he rescheduled for 04/12/24 @ 9:45 am lab work and 10:00 am appointment Tiara Severino [facility]02-19-2025 Miscellaneous Notes* Telephone Encounter - Tiara Foote - 03/29/2024 1:40 PM EST I called and spoke to Analilia who did not realize he had these appointments scheduled today, he rescheduled for 04/12/24 @ 9:45 am lab work and 10:00 am appointment Tiara French Pss * Telephone Encounter - Vandana Edwards - 03/29/2024 1:08 PM EST Patient was No Show for todays (03/29/2024) appointment. Can we make sure he is rescheduled for labs and OV sometime the first week in april after he has his scopes ? Thank you, Vandana Edwards APRN.SPLUNK D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 documented in this encounterDunlap [facility] Hospital02-19-2025 Telephone encounter Note * Telephone Encounter - Vandana Edwards - 03/29/2024 1:08 PM EST Patient was No Show for todays (03/29/2024) appointment. Can we make sure he is rescheduled for labs and OV sometime the first week in april after he has his scopes ? Thank you, Vandana Edwards APRN.SPLUNK D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 [facility] Work Phone: [phone] Telephone encounter Note* Telephone Encounter - Andrew Ponce MA - 03/28/2024 8:03 AM EST Patient notified . Reminder placed. Andrew Ponce MA [facility]02-18-2025 Miscellaneous Notes* Telephone Encounter - Andrew Ponce MA - 03/28/2024 8:03 AM EST Patient notified . Reminder placed. Andrew Ponce MA * Telephone Encounter - Marianna Wagner APRN.CNP - 03/27/2024 2:48 PM EST A1C increased to 7.6. Will need to increase his daily Glargine insulin to 15 units daily. I am also going to change him to Metformin XR at 1,000 mg daily. Rx sent in. Recheck in 3 months. documented in this encounterDunlap [facility] Hospital02-17-2025 Telephone encounter Note * Telephone Encounter - Marianna Wagner APRN.CNP - 03/27/2024 2:48 PM EST A1C increased to 7.6. Will need to increase his daily Glargine insulin to 15 units daily. I am also going to change him to Metformin XR at 1,000 mg daily. Rx sent in. Recheck in 3 months. [facility]02-14-20[facility] Telephone encounter Note* Telephone Encounter - Jenifer Varela - 03/24/2024 11:17 AM EST Thank You Austin! [facility]02-14-20[facility] Miscellaneous Notes* Telephone Encounter - Jenifer Varela - 03/24/2024 11:17 AM EST Thank You Austin! * Telephone Encounter - Morenita Manuel RN - 03/24/2024 9:26 AM EST Patient call. EGD/ Colonoscopy with Dr Vazquez 04/05/24. Has questions regarding his prep. Would like a call. Thanks [phone] (home) [phone] (cell) documented in this encounterDunlap [facility] Hospital02-14-2025 Telephone encounter Note * Telephone Encounter - Morenita Manuel RN - 03/24/2024 9:26 AM EST Patient call. EGD/ Colonoscopy with Dr Vazquez 04/05/24. Has questions regarding his prep. Would like a call. Thanks [phone] (home) [phone] (cell) [facility]02-[facility] Telephone encounter Note* Telephone Encounter - Brandy Motta PA-C - 03/24/2024 9:02 AM EST TELEPHONE ENCOUNTER Analilia Melendrez's medication list was reviewed and patient was noted to be taking Farxiga per patient chart. The patient was contacted via telephone and it was discussed that the patient hold their medication 3 day(s) prior to their date of surgery. Patient confirmed understanding. Patient was alsoinformed to reach out to their surgeon's office if they have any further questions or concerns, patient indicated understanding. SIGNATURE: Brandy Motta PA-C PATIENT NAME: Analilia Melendrez DATE: March 24, 2024 [facility] Work Phone: [phone] Miscellaneous Notes* Telephone Encounter - Brandy Motta PA-C - 03/24/2024 9:02 AM EST TELEPHONE ENCOUNTER Analilia Melendrez's medication list was reviewed and patient was noted to be taking Farxiga per patient chart. The patient was contacted via telephone and it was discussed that the patient hold their medication 3 day(s) prior to their date of surgery. Patient confirmed understanding. Patient was alsoinformed to reach out to their surgeon's office if they have any further questions or concerns, patient indicated understanding. SIGNATURE: Brandy Motta PA-C PATIENT NAME: Analilia Melendrez DATE: March 24, 2024 documented in this encounterDunlap Memorial Hospital02-04-2025 Telephone encounter Note * Telephone Encounter - Emmy Dillon MA - 03/14/2024 3:51 PM EST Spoke with patient about prep instructions. He had to cancel his appointment at [facility] and they will call him tomorrow with a reschedule at [facility]. [facility]02-04-2025 Miscellaneous Notes* Telephone Encounter - Emmy Dillon MA - 03/14/2024 3:51 PM EST Spoke with patient about prep instructions. He had to cancel his appointment at [facility] and they will call him tomorrow with a reschedule at [facility]. * Telephone Encounter - Emmy Dillon MA - 03/14/2024 2:39 PM EST Called home phone number on file and another gentleman answered the phone and said Analilia was not at home. Will again before leaving today. * Telephone Encounter - Suzi Haynes MA - 03/14/2024 11:27 AM EST Patient left another message requesting call back regarding prep. Suzi Haynes MA * Telephone Encounter - Suzi Haynes MA - 03/13/2024 10:32 AM EST Patient left message stating he scheduled for some procedures on 03/16/24 but does not know when to start the prep. Please advise. Suzi Haynes MA documented in this encounterDunlap Memorial Hospital02-04-2025 Telephone encounter Note * Telephone Encounter - Emmy Dillon MA - 03/14/2024 2:39 PM EST Called home phone number on file and another gentleman answered the phone and said Analilia was not at home. Will again before leaving today. [facility]02-[facility] Telephone encounter Note* Telephone Encounter - Suzi Haynes MA - 03/14/2024 11:27 AM EST Patient left another message requesting call back regarding prep. Suzi Haynes MA [facility]02-03-2025 Telephone encounter Note* Telephone Encounter - Suzi Haynes MA - 03/13/2024 10:32 AM EST Patient left message stating he scheduled for some procedures on 03/16/24 but does not know when to start the prep. Please advise. Suzi Haynes MA [facility]01-29-2025 Telephone encounter Note* Telephone Encounter - Andrew Ponce MA - 03/08/2024 11:21 AM EST Lm on pt. Vm with all information Andrew Ponce MA [facility]01-29-2025 Miscellaneous Notes* Telephone Encounter - Andrew Ponce MA - 03/08/2024 11:21 AM EST Lm on pt. Vm with all information Andrew Ponce MA * Telephone Encounter - Ramy Delgadillo DO - 03/08/2024 11:17 AM EST Pt is due for blood work - order attached Ramy Delgadillo DO * Telephone Encounter - Suzi Haynes MA - 03/08/2024 10:44 AM EST Patient phones requesting refills as follows: States he is all out Requested Prescriptions Pending Prescriptions Disp Refills atorvastatin (LIPITOR) 40 mg tablet 30 tablet 2 Sig: Take 1 tablet by mouth once daily. insulin glargine 100 unit/mL (3 mL) 1 Each 2 Sig: Inject 10 Units subcutaneously once daily. metFORMIN (GLUCOPHAGE) 500 mg tablet 30 tablet 2 Sig: Take 1 tablet by mouth daily with breakfast. metoprolol tartrate, short acting, (LOPRESSOR) 50 mg tablet 60 tablet 2 Sig: Take 1 tablet by mouth two times a day. ramipril (ALTACE) 10 mg capsule 30 capsule 2 Sig: Take 1 capsule by mouth once daily. Please review and advise. Suzi Haynes MA documented in this encounterDunlap [facility] Hospital01-29-2025 Telephone encounter Note * Telephone Encounter - Ramy Delgadillo DO - 03/08/2024 11:17 AM EST Pt is due for blood work - order attached Ramy Delgadillo DO [facility]01-[facility] Telephone encounter Note* Telephone Encounter - Suzi Haynes MA - 03/08/2024 10:44 AM EST Patient phones requesting refills as follows: States he is all out Requested Prescriptions Pending Prescriptions Disp Refills atorvastatin (LIPITOR) 40 mg tablet 30 tablet 2 Sig: Take 1 tablet by mouth once daily. insulin glargine 100 unit/mL (3 mL) 1 Each 2 Sig: Inject 10 Units subcutaneously once daily. metFORMIN (GLUCOPHAGE) 500 mg tablet 30 tablet 2 Sig: Take 1 tablet by mouth daily with breakfast. metoprolol tartrate, short acting, (LOPRESSOR) 50 mg tablet 60 tablet 2 Sig: Take 1 tablet by mouth two times a day. ramipril (ALTACE) 10 mg capsule 30 capsule 2 Sig: Take 1 capsule by mouth once daily. Please review and advise. Suzi Haynes MA [facility]01-13-2025 Telephone encounter Note* Telephone Encounter - Giulia Rogel MA - 02/21/2024 4:34 PM EST Patient called and left a message stating that his appointment was canceled and that they can't do anything for him. He states his bowels are still bothering him Giulia Rogel MA [facility]01-13-2025 Miscellaneous Notes* Telephone Encounter - Giulia Rogel MA - 02/21/2024 4:34 PM EST Patient called and left a message stating that his appointment was canceled and that they can't do anything for him. He states his bowels are still bothering him Giulia Rogel MA documented in this encounterDunlap [facility] Hospital01-13-2025 Telephone encounter Note * Telephone Encounter - Suzi Haynes MA - 02/21/2024 8:30 AM EST pharmacy electronically requesting refills as follows: Last seen 12/27/23 . Last refill 11/26/23 . Requested Prescriptions Pending Prescriptions Disp Refills UNIFINE PENTIPS 31 gauge x 3/16 [Pharmacy Med Name: UNIFINE PENTIPS 31G X 5 MM MISC] 100 Each 0 Sig: USE ONE 3 TIMES DAILY Please review and advise. Suzi Haynes MA [facility]01-13-2025 Miscellaneous Notes* Telephone Encounter - Suzi Haynes MA - 02/21/2024 8:30 AM EST pharmacy electronically requesting refills as follows: Last seen 12/27/23 . Last refill 11/26/23 . Requested Prescriptions Pending Prescriptions Disp Refills UNIFINE PENTIPS 31 gauge x 3/16 [Pharmacy Med Name: UNIFINE PENTIPS 31G X 5 MM MISC] 100 Each 0 Sig: USE ONE 3 TIMES DAILY Please review and advise. Suzi Haynes MA documented in this encounterDunlap [facility] Hospital01-13-2025 Telephone encounter Note * Telephone Encounter - Suzi Haynes MA - 02/21/2024 7:27 AM EST pharmacy electronically requesting refills as follows: Last seen 12/27/23 . Last refill 08/09/23 . Requested Prescriptions Pending Prescriptions Disp Refills pantoprazole DR (PROTONIX) 40 mg tablet [Pharmacy Med Name: PANTOPRAZOLE SODIUM 40MG TBEC] 60 tablet 2 Sig: TAKE ONE TABLET BY MOUTH TWICE A DAY 30 MINUTES BEFORE EATING Please review and advise. Suzi Haynes MA [facility]01-13-2025 Miscellaneous Notes* Telephone Encounter - Suzi Haynes MA - 02/21/2024 7:27 AM EST pharmacy electronically requesting refills as follows: Last seen 12/27/23 . Last refill 08/09/23 . Requested Prescriptions Pending Prescriptions Disp Refills pantoprazole DR (PROTONIX) 40 mg tablet [Pharmacy Med Name: PANTOPRAZOLE SODIUM 40MG TBEC] 60 tablet 2 Sig: TAKE ONE TABLET BY MOUTH TWICE A DAY 30 MINUTES BEFORE EATING Please review and advise. Suzi Haynes MA documented in this encounterDunlap [facility] Hospital01-08-2025 Telephone encounter Note * Telephone Encounter - Suzi Haynes MA - 02/16/2024 7:19 AM EST ----- Message from Andrew Horowitz MA sent at 08/16/2023 2:21 PM EDT ----- Remind pt. Time to recheck A1C. Andrew Ponce MA [facility]01-08-2025 Miscellaneous Notes* Telephone Encounter - Suzi Haynes MA - 02/16/2024 7:19 AM EST ----- Message from Andrew Horowitz MA sent at 08/16/2023 2:21 PM EDT ----- Remind pt. Time to recheck A1C. Andrew Ponce MA documented in this encounterDunlap [facility] Hospital12-31-2024 Telephone encounter Note * Telephone Encounter - Andrew Ponce MA - 02/08/2024 11:38 AM EST Patient requesting refills: Last office visit 12/27/2023. Last refill 08/10/2023 . Requested Prescriptions Pending Prescriptions Disp Refills FARXIGA 10 mg tablet Sig: Take 1 tablet by mouth daily with breakfast. Please review and advise. Andrew Ponce MA [facility]12-31-2024 Miscellaneous Notes* Telephone Encounter - Andrew Ponce MA - 02/08/2024 11:38 AM EST Patient requesting refills: Last office visit 12/27/2023. Last refill 08/10/2023 . Requested Prescriptions Pending Prescriptions Disp Refills FARXIGA 10 mg tablet Sig: Take 1 tablet by mouth daily with breakfast. Please review and advise. Andrew Ponce MA documented in this encounterDunlap Memorial Hospital12-12-2024 Telephone encounter Note * Telephone Encounter - Andrew Ponce MA - 01/20/2024 2:21 PM EST pharm requesting refills: Last office visit 12/27/2023. Last refill 10/14/2023 . Requested Prescriptions Pending Prescriptions Disp Refills FEROSUL 325 mg (65 mg iron) tablet [Pharmacy Med Name: FEROSUL 325 (65 FE)MG TABS] 30 tablet 2 Sig: TAKE ONE TABLET BY MOUTH EVERY DAY Please review and advise. Andrew Ponce MA [facility]12-12-2024 Miscellaneous Notes* Telephone Encounter - Andrew Ponce MA - 01/20/2024 2:21 PM EST pharm requesting refills: Last office visit 12/27/2023. Last refill 10/14/2023 . Requested Prescriptions Pending Prescriptions Disp Refills FEROSUL 325 mg (65 mg iron) tablet [Pharmacy Med Name: FEROSUL 325 (65 FE)MG TABS] 30 tablet 2 Sig: TAKE ONE TABLET BY MOUTH EVERY DAY Please review and advise. Andrew Ponce MA documented in this encounter[facility]12-[facility]24 Telephone encounter Note * Telephone Encounter - Cristela Batres - 01/19/2024 12:04 PM EST Done [facility]12-11-2024 Miscellaneous Notes* Telephone Encounter - Cristela Batres - 01/19/2024 12:04 PM EST Done * Telephone Encounter - Emani Torres - 01/19/2024 10:27 AM EST Spoke with patient and rescheduled as directed. PSS - please print and mail an updated schedule to the patient. Emani Torres * Telephone Encounter - Chanel Foreman LPN - 01/17/2024 12:08 PM EST Has GI apt in [place]. Will need OV with Vandana perkins per her note below. Chanel Foreman LPN * Telephone Encounter - Vandana Edwards - 01/17/2024 11:30 AM EST Pt needs GI workup, EDG and scope. Repeat CBC ordered. Unfortunately, I do not have any new information to further eval his anemia from our last OV. He does not need OV with us until after he meets with GI. * Telephone Encounter - Chanel Foreman LPN - 01/17/2024 9:32 AM EST What labs would you like. Chanel Foreman LPN * Telephone Encounter - Cristela Batres - 01/17/2024 9:[address] LABS PATIENT COMING IN ON 01/20 * Telephone Encounter - Radha Anand - 01/14/2024 1:34 PM EST Lvm for patient to return the call. Patient missed todays apointment Radha Anand documented in [facility] encounterDun[facility]12-[facility]-2024 Telephone encounter Note * Telephone Encounter - Emani Torres - 01/19/2024 10:27 AM EST Spoke with patient and rescheduled as directed. PSS - please print and mail an updated schedule to the patient. Emani Torres [facility]12-09-2024 Telephone encounter Note* Telephone Encounter - Chanel Foreman LPN - 01/17/2024 12:08 PM EST Has GI apt in [place]. Will need OV with Vandana moved per her note below. Chanel Foreman LPN [facility]12-09-2024 Telephone encounter Note* Telephone Encounter - Vandana Edwards - 01/17/2024 11:30 AM EST Pt needs GI workup, EDG and scope. Repeat CBC ordered. Unfortunately, I do not have any new information to further eval his anemia from our last OV. He does not need OV with us until after he meets with GI. [facility]12-09-2024 Telephone encounter Note* Telephone Encounter - Chanel Foreman LPN - 01/17/2024 9:32 AM EST What labs would you like. Chanel Foreman LPN [facility]12-09-2024 Telephone encounter Note* Telephone Encounter - Cristela Batres - 01/17/2024 9:[address] LABS PATIENT COMING IN ON 01/20 [facility]12-06-2024 Telephone encounter Note* Telephone Encounter - Radha Anand - 01/14/2024 1:34 PM EST Lvm for patient to return the call. Patient missed todays apointment Radha Anand [facility]11-22-2024 Telephone encounter Note* Telephone Encounter - Sabra Desouza APRN.ARIE - 12/31/2023 4:43 PM EST Please cancel endo procedures at [facility] 01/07/24. Pt needs to be scheduled in the hospital setting dueto medical history (Cirrhosis). I called and spoke with him and gave him the scheduling phone number so he can reschedule himself. [facility] Work Phone: [phone] Miscellaneous Notes* Telephone Encounter - Sabra Desouza APRN.CRNA - 12/31/2023 4:43 PM EST Please cancel endo procedures at [facility] 01/07/24. Pt needs to be scheduled in the hospital setting dueto medical history (Cirrhosis). I called and spoke with him and gave him the scheduling phone number so he can reschedule himself. documented in this encounterDunlap [facility] Hospital11-18-2024 Instructions* Patient Instructions* Marianna Wagner APRN.CNP - 12/27/2023 2:37 PM EST Pneumococcal vaccine Shingrix Tdap RSV documented in this encounterDunlap [facility] Hospital11-18-2024 NoteHNO ID: [id number] Author: MARIANNA WAGNER APRN.CNP Service: ? Author Type: Nurse Practitioner Type: Progress Notes Filed: 01/08/2024 20:36 Note Text: CHIEF COMPLAINT: Analilia Melendrez is a 63 year old male who presents for follow up for abdominal pain (chronic pancreatitis). I reviewed past medical, surgical, social, and family histories today and updated chart. Allergies, chronic medications, and supplements were also reviewed. He had an appointment with GI 2 weeks ago and the plan is for him to undergo a colonoscopy and EGD due to anemia and weight loss. He was started on Creon with meals and snacks. He remains on Protonix 40 mg BID. He is still taking his iron replacement. Using Freestyle Mango 3 (has it on his right forearm) Got it through a diabetic clinic in [facility] has been refilling it for him but states it's been on back order BS running in the 200's He is on 10 units insulin glargine and Farxiga OV 10/14/2023: Analilia Melendrez is a 63 year old male who presents for month f/u (Abdomen is still bothering and his bowel movements). I reviewed past medical, surgical, social, and family histories today and updated chart. Allergies, chronic medications, and supplements were also reviewed. His last appointment was on 08/09/23 and reported diarrhea for at least 4 weeks prior. Stool studies were ordered but he never completed them. He was referred to GI and had an appointment on 09/24/23 but it appears that he cancelled the appointment (he doesn't recall this). He called the nurse triage line to report he was having bloody diarrhea and he was contacted by this office to make an appointment but he did not come in until today. He continues to have diarrhea. He has seen blood as well. He states he has a decreased appetite and is not eating much (crackers, potatoes) which is contributing to his weight loss (has lost about 30 pounds since June). His daughter did get him some Ensure to drink but he does not have anymore. He has had generalized abdominal pain and nausea. He denies any fevers or vomiting. His blood sugars have been up and down. He had a BS of 50 once and felt symptomatic. His BS has been as high as 300. He reports compliance with Farxiga, Metformin, and his daily insulin. Stopped drinking beer a week ago States he was having 1 beer every other day previously He continues to have pain with urination. He was treated for an UTI in August. + for E.coli. OV 08/09/23: Analilia Melendrez is a 63 year old male presenting today as a new patient to establish care. I reviewed past medical, surgical, social, and family histories today and updated chart. Allergies, chronic medications, and supplements were also reviewed. PMH of DM type 2 on insulin, Having chronic diarrhea for the last 2 months. Can go up to 6-8 x a day. The color is orange. No blood that he can see. Having upper abdominal pain. Hx of pancreatitis. He is having upper abdominal pain. He is taking a PPI. Upper GI in the past. Last colonoscopy was about 30 years ago. Has been losing weight since then. Has lost about 25 lbs. Was 165 lbs prior to the residential in June. Has frequent nausea and vomiting. Has a low appetite Unsure of what his last A1C was BS are either really high or low. Has a freestyle mango. Taking Lantus insulin. No meal time insulin. Taking Farxiga and Metformin (has been on that for awhile). Was supposed to follow with a ultrasound sonographer Hx of aortic valve replacement Had a congenital aortic aneurysm Has a pacemaker Has had heart attack He is not following with any specialists right now. States he either had a seizure or stroke and was placed in the hospital and then went to a residential for 5 weeks. 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 Started smoking again, 5-10 cigarettes Has quit in the past, up to a year Drinks alcohol 1 beer every other Used to drink vodka every day, approximately 3 years ago Was in rehab before No marijuana or illicit drugs. 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 Son overdosed and 8 years ago. HPI PAST MEDICAL HISTORY Diagnosis Date Alcohol-induced chronic pancreatitis (HCC) Anxiety Aortic aneurysm (HCC) S/P Repair Aortic valve disorder S/P Replacement CAD (coronary artery disease) nonobstructive Chronic kidney disease, stage III (moderate) (HCC) Clostridioides difficile infection Coronary artery disease Depression Diabetes mellitus, type II (HCC) Insulin dependent History of alcohol abuse Hx of ascending aorta repair Hyperlipidemia Hypertension Non-ST elevation [place] (NSTEMI) (HCC) 06/24 Pacemaker Paroxysmal atrial fibrillation (HCC) RBBB (right bundle branch block) S/P aortic valve replacement St. Wero mechanical Syncope Tachy-fernando syndrome (HCC) Tobacco abuse chronic Tobacco user Type 2 diabetes mellitus (HCC) PAST DARELL (more content not included)...[facility]11-18-2024 History of Present illness Narrative* Marianna Wagner, VEHICLE DISMANTLER.SPLUNK D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 - 12/27/2023 2:19 PM EST CHIEF COMPLAINT: Analilia Melendrez is a 63 year old male who presents for follow up for abdominal pain (chronic pancreatitis). I reviewed past medical, surgical, social, and family histories today and updated chart. Allergies, chronic medications, and supplements were also reviewed. He had an appointment with GI 2 weeks ago and the plan is for him to undergo a colonoscopy and EGD due to anemia and weight loss. He was started on Creon with meals and snacks. He remains on Qvbbdwby00 mg BID. He is still taking his iron replacement. Using Freestyle Mango 3 (has it on his right forearm) Got it through a diabetic clinic in [facility] has been refilling it for him but states it's been on back order BS running in the 200's He is on 10 units insulin glargine and Farxiga OV 10/14/2023: Analilia Melendrez is a 63 year old male who presents for month f/u (Abdomen is still bothering and his bowel movements). I reviewed past medical, surgical, social, and family histories today and updated chart. Allergies, chronic medications, and supplements were also reviewed. His last appointment was on 08/09/23 and reported diarrhea for at least 4 weeks prior. Stool studies were ordered but he never completed them. He was referred to GI and had an appointment on 09/24/23 but it appears that he cancelled the appointment (he doesn't recall this). He called the nurse triage line to report he was having bloody diarrhea and he was contacted by this office to make an appointment but he did not come in until today. He continues to have diarrhea. He has seen blood as well. Hestates he has a decreased appetite and is not eating much (crackers, potatoes) which is contributing to his weight loss (has lost about 30 pounds since June). His daughter did get him some Ensure to drink but he does not have anymore. He has had generalized abdominal pain and nausea. He denies any fevers or vomiting. His blood sugars have been up and down. He had a BS of 50 once and felt symptomatic. His BS has been as high as 300. He reports compliance with Farxiga, Metformin, and his daily insulin. Stopped drinking beer a week ago States he was having 1 beer every other day previously He continues to have pain with urination. He was treated for an UTI in August. + for E.coli. OV 08/09/23: Analilia Melendrez is a 63 year old male presenting today as a new patient to establish care. I reviewed past medical, surgical, social, and family histories today and updated chart. Allergies, chronic medications, and supplements were also reviewed. PMH of DM type 2 on insulin, Having chronic diarrhea for the last 2 months. Can go up to 6-8 x a day. The color is orange. No blood that he can see. Having upper abdominal pain. Hx of pancreatitis. He is having upper abdominal pain. He is taking a PPI. Upper GI in the past. Last colonoscopy was about 30 years ago. Has been losing weight since then. Has lost about 25 lbs. Was 165 lbs prior to the residential in June. Has frequent nausea and vomiting. Has a low appetite Unsure of what his last A1C was BS are either really high or low. Has a freestyle mango. Taking Lantus insulin. No meal time insulin. Taking Farxiga and Metformin (has been on that for awhile). Was supposed to follow with a ultrasound sonographer Hx of aortic valve replacement Had a congenital aortic aneurysm Has a pacemaker Has had heart attack He is not following with any specialists right now. States he either had a seizure or stroke and was placed in the hospital and then went to a residential for 5 weeks. 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 Started smoking again, 5-10 cigarettes Has quit in the past, up to a year Drinks alcohol 1 beer every other Used to drink vodka every day, approximately 3 years ago Was in rehab before No marijuana or illicit drugs. 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 Son overdosed and 8 years ago. HPI PAST MEDICAL HISTORY Diagnosis Date Alcohol-induced chronic pancreatitis (HCC) Anxiety Aortic aneurysm (HCC) S/P Repair Aortic valve disorder S/P Replacement CAD (coronary artery disease) nonobstructive Chronic kidney disease, stage III (moderate) ([facility]) Clostridioides difficile infection Coronary artery disease Depression Diabetes mellitus, type II (HCC) Insulin dependent History of alcohol abuse Hx of ascending aorta repair Hyperlipidemia Hypertension Non-ST elevation [place] (NSTEMI) (HCC) 06/24 Pacemaker Paroxysmal atrial fibrillation (HCC) RBBB (right bundle branch block) S/P aortic valve replacement St. Wero mechanical Syncope Tachy-fernando syndrome (HCC) Tobacco abuse chronic Tobacco user Type 2 diabetes mellitus (HCC) PAST SURGICAL HISTORY Procedure Laterality Date ABD AORTIC ANEURYSM REPAIR ASCENDING AORTA GRAFT W/AORTIC ROOT COLONOSCOPY SCREENING In [place] CORONARY ARTERY BYPASS GRAFT HX 2016 2005 HEART CATHETERIZATION 06/24/2016 HEART VALVE REPLACEMENT 2017 Aortic x2 ;2015 HERNIA REPAIR HX PACEMAKER 06/25/2016 REPLACEMENT AORTIC VALVE W BYPASS Social History Tobacco Use Smoking status: Every Day Types: Cigarettes Smokeless tobacco: Never Tobacco comments: Pt smoked 1 pack daily for x 40 years, pt has cut back to 1 pack per week x 1 year Vaping Use Vaping status: Never Used Substance Use Topics Alcohol use: Yes Alcohol/week: 2.0 standard drinks of alcohol Types: 2 Cans of beer per week Drug use: Never ALLERGIES No Known Allergies Family History Problem Relation Age of Onset Dementia Mother Coronary Artery Disease Father Colon Cancer No Family History Current Outpatient Medications Medication Sig Dispense Refill kquylr-[id number]-akbeiph (CREON 36) 36,000-114,000- 180,000 unit delayed release capsule Take 2 pills by mouth with first bite of meal and take 1 pill with snacks. Max 10 per day. 300 capsule 3 Insulin [place], Disposable, (BD ULTRA-FINE NORBERTO PEN NEEDLE) 32 gauge x 5/32 1 Each three times a day. 90 Each 2 metFORMIN (GLUCOPHAGE) 500 mg tablet Take 1 tablet by mouth daily with breakfast. Cholecalciferol, Vitamin D3, (VITAMIN D-3) 50 mcg (2,000 unit) cap Take 1 capsule by mouth once daily. 90 capsule 1 ferrous sulfate 325 mg (65 mg iron) tablet Take 1 tablet by mouth once daily. 30 tablet 2 Blood-Glucose Meter,Continuous (FREESTYLE MANGO 3 READER) [facility] Use to check blood sugar at least four (4) times daily. 1 Each 0 FARXIGA 10 mg tablet Take 1 tablet by mouth daily with breakfast. insulin glargine 100 unit/mL (3 mL) Inject 10 Units subcutaneously once daily. 1 Each 0 metoprolol tartrate, short acting, (LOPRESSOR) 50 mg tablet Take 1 tablet by mouth two times a day.60 tablet 2 ramipril (ALTACE) 10 mg capsule Take 10 mg by mouth once daily. pantoprazole DR (PROTONIX) 40 mg tablet Take 1 tablet by mouth two times a day. 30 minutes before eating. 60 tablet 2 dicyclomine (BENTYL) 10 mg capsule Take 1 capsule by mouth before meals and at bedtime. 120 capsule2 atorvastatin (LIPITOR) 40 mg tablet TAKE 1 TABLET BY MOUTH ONCE DAILY. 30 tablet 11 MULTIVITAMIN ORAL Take 1 tablet by mouth once daily. Blood-Glucose Sensor (FREESTYLE MANGO 3 SENSOR) daniel Apply new sensor every fourteen (14) days to upper arm. 6 Each 4 No current facility-administered medications for this visit. Review of Systems Constitutional: Positive for appetite change, fatigue and unexpected weight change. Negative for chills, diaphoresis and fever. HENT: Negative. Eyes: Negative for visual disturbance. Respiratory: Positive for shortness of breath. Negative for cough, chest tightness and wheezing. Cardiovascular: Positive for palpitations (on occasion). Negative for chest pain and leg swelling. Gastrointestinal: Positive for abdominal pain, diarrhea and nausea. Negative for abdominal distention, blood in stool, constipation, rectal pain and vomiting. Endocrine: Negative. Genitourinary: Negative for dysuria, frequency, hematuria, testicular pain and urgency. Musculoskeletal: Negative for arthralgias, back pain, gait problem, joint swelling, myalgias, neck pain and neck stiffness. Skin: Negative. Allergic/Immunologic: Negative. Neurological: Positive for dizziness, weakness and light-headedness (with position). Negative for tremors, syncope and headaches. Hematological: Bruises/bleeds easily. Psychiatric/Behavioral: Negative for dysphoric mood. The patient is not nervous/anxious. BP 126/70 Pulse 75 Temp 97.8 Resp 16 Ht 5' 11 (1.80m) Wt 136 lb (61.7kg) SpO2 100% BMI 18.98 kg/(m^2). Physical Exam Vitals and nursing note reviewed. Constitutional: Appearance: He is cachectic. HENT: Mouth/Throat: Mouth: Mucous membranes are moist. Pharynx: Oropharynx is clear. Eyes: Pupils: Pupils are equal, round, and reactive to light. Cardiovascular: Rate and Rhythm: Normal rate and regular rhythm. Heart sounds: S1 normal and S2 normal. Murmur heard. Systolic murmur is present with a grade of 1/6. Pulmonary: Breath sounds: Normal breath sounds. Abdominal: General: Bowel sounds are normal. There is no distension. Palpations: Abdomen is soft. Tenderness: There is generalized abdominal tenderness. Hernia: No hernia is present. Musculoskeletal: Cervical back: Neck supple. Lymphadenopathy: Cervical: No cervical adenopathy. Upper Body: Right upper body: No supraclavicular adenopathy. Left upper body: No supraclavicular adenopathy. Skin: General: Skin is warm and dry. Coloration: Skin is pale. Neurological: Mental Status: He is alert and oriented to person, place, and time. Cranial Nerves: Cranial nerves 2-12 are intact. Psychiatric: Mood and Affect: Mood normal. Behavior: Behavior is cooperative. Cognition and Memory: Cognition normal. No visits with results within 1 Day(s) from this visit. Latest known visit with results is: Hospital Outpatient Visit on 10/21/2023 Component Date Value Ref Range Status Radiology Result 10/21/2023 ACTIONABLE (Actionable) Final Comment: This report contains an incidental or actionable finding. This finding may be a new finding separate from the reason your provider ordered the imaging test or it may be an already known finding that needs additional or continued follow-up. Because of this incidental or actionable finding, you may need another test (imaging or a different type of test). Please contact your provider for the next steps. ASSESSMENT/PLAN: 1. Primary hypertension - ICD9: 401.9, ICD10: I10 (primary diagnosis) - Controlled - Continue current medications - Recommend home blood pressure monitoring, to bring results to next visit - Encouraged sodium restriction, DASH or Mediterranean diet 2. Type 2 diabetes mellitus with complication, with long-term current use of insulin (HCC) - ICD9: 250.90, V58.67, ICD10: E11.8, Z79.4 - Controlled. Last A1C was 6.8 in August. - Continue current medications - Blood glucose monitoring on a continuous glucose monitoring schedule - Counseled on healthy diet and regular exercise - Smoking cessation encouraged; discussed risks to health and quitting strategies. Patient is not ready to quit - Follow up in 2 months, sooner should any other issues arise. - [facility] MANGO 3 SENSOR DEVICE 3. Stage 3 chronic kidney disease, unspecified whether stage 3a or 3b CKD (HCC) - ICD9: 585.3, ICD10: N18.30 - eGFR: 51 Stable - Counseled on avoiding NSAIDs, adequate hydration - Counseled on low sodium diet - ACEi/ARB prescribed: Yes - SGLT2i prescribed: FARXIGA Tab 4. Hyperlipidemia, mixed - ICD9: 272.2, ICD10: E78.2 - Controlled - Continue current medications - Counseled on healthy diet and regular exercise 5. Gastroesophageal reflux disease, unspecified whether esophagitis present - ICD9: 530.81, ICD10: K21.9 - Continue treatment with Protonix 40 mg BID - Following with GI - Needs EGD 6. Chronic pancreatitis, unspecified pancreatitis type (HCC) - ICD9: 577.1, ICD10: K86.1 - Started on Creon - Following with GI 7. Anemia, unspecified type - ICD9: 285.9, ICD10: D64.9 - Needs EGD and colonoscopy New medication(s) prescribed today: None. Counseling completed in adopting health behaviors such as avoiding excessive alcohol use, avoid tobacco use, improve nutrition, and engage in physical activities. Copy of written care plan, clinical summary, treatment plan, new medications, goals, and self management requirements were given to patient. Marianna Wagner APRN.CNP documented in this encounterDunlap [facility]11-15-2024 Instructions* Patient Instructions* Susana Ramirez APRN.CNP - 12/24/2023 10:55 AM EST COLONOSCOPY BOWEL PREPARATION INSTRUCTIONS MiraLAX Your doctor has scheduled you for a colonoscopy. To have a successful colonoscopy, you must have a clean colon, that is empty. A clean colon allows your doctor to see the entire colon & diagnose issues like polyps or cancer. For doctors, a clean colon is like driving on a gertrudis day; a dirty colon like driving in a storm. It is very important that you follow these instructions exactly, or your colonoscopy may not be as effective, could be canceled, and you may need to do the bowel prep and colonoscopy again. TRANSPORTATION REQUIREMENTS You are receiving IV sedation. For your safety, a responsible adult escort must accompany you to and from your procedure: Your adult escort MUST be present with you at check-in for your colonoscopy. Your adult escort MUST remain in the endoscopy area until you are discharged. Your adult escort MUST transport you home once you are discharged. You are NOT allowed to operate any form of transportation (i.e. drive a car, bicycle, etc) or leavethe [facility] ALONE. It is not safe to do so. If you cannot meet these requirements, your procedure will be canceled. MEDICATION REQUIREMENTS For your safety, certain medications will need to be stopped or adjusted before you can have your procedure: BLOOD THINNERS: If you take blood thinners, such as Coumadin (warfarin), Plavix (clopidogrel), Ticlid (ticlopidine hydrochloride), Agrylin (anagrelide), Xarelto (Rivaroxaban), Pradaxa (Dabigatran), Eliquis (Apixaban), or Effient (Prasugrel), contact the physician who is prescribing these medications at least 2 weeks prior to your procedure to discuss any necessary adjustments. DIABETES: If you take medications for diabetes, your dosage may need to be adjusted. If you are being treated for diabetes with insulin, diabetic pills, or other injectable medicationsdo not take your REGULAR dose after midnight on the day of your procedure. If you are taking any other types of insulin such as Lantus, Humalog, NPH (long- acting insulin), or70/30 insulin, take half your normal dose the day before your procedure. DIABETES/WEIGHT MANAGEMENT: If you take medications for weight-loss, your dosage may need to be adjusted Contact the doctor who prescribes this medication for further instructions. If you take medications for weight-loss like semaglutide (Ozempic, Wegovy, Rybelsus), dulaglutide (Trulicity), liraglutide (Victoza, Saxenda), exenatide (Byetta, Bydureon), or lixisenatide (Adylyxin), stop your medication 1 week prior to your procedure. If you take medications like canagliflozin (Invokana), dapagliflozin (Farxiga, Forxiga), empagliflozin (Jardiance), stop your medication 3 days prior to your procedure. If you take ertugliflozin (Steglatro) stop your medication 4 days prior to your procedure. IRON: If you take iron pills, STOP them 1 week BEFORE your procedure, may resume after. OTHER MEDS: May take all other medications (including aspirin, antibiotics, water pills / diureticslike Lasix or Metolozone, blood pressure meds, etc.) at their usual scheduled time with water. DIET REQUIREMENTS The day before your colonoscopy, you may have a clear liquid diet (see below). The day of your colonoscopy, you may continue a clear liquid diet until 3 hours before your colonoscopy. Within 3 hours of your colonoscopy, take only any medications (as above) with a sip of water. Clear Liquid Diet Broth (chicken, beef or vegetable broth or bullion. Just the broth, no solids). Water Coffee or Tea (NO milk or creamer), but sugar and sugar substitutes are allowed. Clear liquids including clear, yellow, green, blue (NO red, NO orange, NO purple) Sodas / soft drinks; Gatorade or other sports drinks Fruit juice (strained; no-pulp); Alcon-Aid or flavored drinks Plain Jell-O or other gelatins Popsicles or hard candy Bowel prep can work differently from person to person. Some people's bowels move slowly and they may need different instructions. Please see your doctor in office or virtually for personalized bowel prep instructions if you have: BOWEL PREPARATION (MIRALAX/GATORADE) Split Dosing Bowel Prep: This means drinking your bowel prep in two doses. Split dosing helps cleanyour colon better and makes it less likely that your procedure will be canceled. You will need to purchase the following (no prescriptions are needed): 64 ounces Gatorade, Propel, Crystal Lite or other noncarbonated clear liquid sports drink (NOT red,orange, or purple). Diabetic patients buy sugar-free, e.g. Gatorade G2 4 Dulcolax laxative tablets containing 5mg bisacodyl each (do not buy the stool softener) 8.3 oz MiraLAX (238g) powder or generic polyethylene glycol 3350 (find in laxative aisle) The day before your colonoscopy mix 64 oz of the sports drink with 8.3 oz MiraLAX (238 g) in a pitcher. Stir or shake until MiraLAX completely dissolved. Chill if desired. On the evening before your colonoscopy: 5 PM take 4 Dulcolax laxative tablets with water by mouth. 6 PM drink the first half of the Gatorade/MiraLAX solution Drink one 8-ounce glass every 15 minutes. Six hours before your colonoscopy, drink the second half of the solution. Drink one 8-ounce glass every 15 minutes. You may continue a clear liquid diet until 3 hours before your colonoscopy. Bowel prep can work differently from person to person. Some people's bowels move slowly and they may need different instructions. Please see your doctor in office or virtually for personalized bowel prep instructions if you have: Medical condition that needs special accommodations Had a poor bowel prep results or failed bowel prep attempts in the past. Had difficulty with anesthesia during the procedure. FREQUENTLY ASKED QUESTIONS Q: What if I suffer from constipation? A: Recommend taking extra laxatives to resolve your constipation days prior to entering the bowel prep day. Q: What if have had prior poor preps results in past? A: Contact your physician as you will likely need additional bowel prep instructions. Q: What if I have motility issues like Parkinson's, MS (multiple sclerosis), wheelchair dependent, etc.? or on medications that slow colonic transit times (narcotics, gabapentin, anticholinergic medications etc.) A: Contact your physician as you will likely need extra time and additional laxatives to complete your bowel prep. Q: What if I cannot drink large volume of liquid? A: Start your prep 2-3 hours earlier to allow yourself more time to complete the entire prep. Q: What if I had bariatric surgery? Do I still have to complete the entire prep? A: Yes, gastric bypass surgery involves the stomach & small bowel. You may need to drink smaller amounts, slower (may need more time to complete your bowel prep). Gastric bypass does not alter the length of your colon so you will need to complete the entire bowel prep, it may just take longer time to complete it. Q: What if I am on dialysis? A: Please consult your night auditor prior to scheduling to get instructions pertinent to you. In general, dialysis patients take the [employer] bowel prep and have the procedure same day of their dialysis (colonoscopy in AM, dialysis in PM). Q: How do I know if something is considered as clear liquid diet? A: If you can pour it in a glass and you can see through it, it is considered clear liquid Q: Can I eat nuts, seeds, beans, popcorn, dried fruits, vegetables & fruits that have skin peel? A: No, you will need to not eat these items starting 3 days prior to procedure. Q: Can I take Uber/Lyft/taxi/bus home? A: An adult MUST be present with you at check-in for your colonoscopy and remain in the endoscopy area until you are discharged. You can take Uber home only if this adult escort is with you at check in, remain in the endoscopy area until you are discharged, and takes the Uber with you to home. Q: Can I sleep it off here and drive myself home? A: No, you must have an adult with you at time of procedure check in, remain in the endoscopy center during your procedure, and drive you home. You cannot drive a vehicle after your procedure the rest of the day. Q: What if I can't finish my bowel prep? A: If you cannot complete your entire bowel prep, there is high likelihood that your colonoscopy will need to be rescheduled due to inadequate prep quality. COLONOSCOPY BOWEL PREPARATION INSTRUCTIONS GOLYTELY/NULYTELY/TRILYTE/COLYTE Your doctor has scheduled you for a colonoscopy. To have a successful colonoscopy, you must have a clean colon, that is empty. A clean colon allows your doctor to see the entire colon & diagnose issues like polyps or cancer. For doctors, a clean colon is like driving on a gertrudis day; a dirty colon like driving in a storm. It is very important that you follow these instructions exactly, or your colonoscopy might not be as effective, could be canceled, and you may need to do the bowel prep and the colonoscopy again. TRANSPORTATION REQUIREMENTS You are receiving IV sedation. For your safety, a responsible adult escort must accompany you to and from your procedure: Your adult escort MUST be present with you at check-in for your colonoscopy. Your adult escort MUST remain in the endoscopy area until you are discharged. Your adult escort MUST transport you home once you are discharged. You are NOT allowed to operate any form of transportation (i.e. drive a car, bicycle, etc.) or leave the Endoscopy Center ALONE. It is not safe to do so. If you cannot meet these requirements, your procedure will be canceled. MEDICATION REQUIREMENTS For your safety, certain medications will need to be stopped or adjusted before you can have your procedure: BLOOD THINNERS: If you take blood thinners, such as Coumadin (warfarin), Plavix (clopidogrel), Ticlid (ticlopidine hydrochloride), Agrylin (anagrelide), Xarelto (Rivaroxaban), Pradaxa (Dabigatran), Eliquis (Apixaban), or Effient (Prasugrel), contact the physician who is prescribing these medications at least 2 weeks prior to your procedure to discuss any necessary adjustments. DIABETES: If you take medications for diabetes, your dosage may need to be adjusted. If you are being treated for diabetes with insulin, diabetic pills, or other injectable medicationsdo not take your REGULAR dose after midnight on the day of your procedure. If you are taking any other types of insulin such as Lantus, Humalog, NPH (long- acting insulin), or70/30 insulin, take half your normal dose the day before your procedure. DIABETES/WEIGHT MANAGEMENT: If you take medications for weight-loss, your dosage may need to be adjusted Contact the doctor who prescribes this medication for further instructions. If you take medications for weight-loss like semaglutide (Ozempic, Wegovy, Rybelsus), dulaglutide (Trulicity), liraglutide (Victoza, Saxenda), exenatide (Byetta, Bydureon), or lixisenatide (Adylyxin), stop your medication 1 week prior to your procedure. If you take medications like canagliflozin (Invokana), dapagliflozin (Farxiga, Forxiga), empagliflozin (Jardiance), stop your medication 3 days prior to your procedure. If you take ertugliflozin (Steglatro) stop your medication 4 days prior to your procedure. IRON: If you take iron pills, STOP them 1 week BEFORE your procedure, may resume after. OTHER MEDS: May take all other medications (including aspirin, antibiotics, water pills / diureticslike Lasix or Metolozone, blood pressure meds, etc.) at their usual scheduled time with a sip of water. DIET REQUIREMENTS The day before your colonoscopy, you may have a clear liquid diet (see below). The day of your colonoscopy, you may continue a clear liquid diet until 3 hours before your colonoscopy. Within 3 hours of your colonoscopy, take only any medications (as above) with a sip of water. Clear Liquid Diet Broth (chicken, beef or vegetable broth or bullion. Just the broth, no solids). Water Coffee or Tea (NO milk or creamer), but sugar and sugar substitutes are allowed. Clear liquids including clear, yellow, green, blue (NO red, NO orange, NO purple) Sodas / soft drinks Gatorade or other sports drinks Alcon-Aid or flavored drinks Plain Jell-O or other gelatins Fruit juice (strained; no-pulp) Popsicles or hard candy BOWEL PREPARATION (GOLYTELY/NULYTELY/TRILYTE/COLYTE) Split Dosing Bowel Prep: This means drinking your bowel prep in two doses. Split dosing helps cleanyour colon better and makes it less likely that your procedure will be canceled. Fill your prescription for Golytely/Nulytely/Trilyte/Colyte: The afternoon before your colonoscopy, mix the solution and refrigerate. You may add the flavor pack (if present) that came with the bowel preparation. Do not add ice, sugar, or other flavorings to the solution. You will drink your prep in two doses, by several hours. On the evening before your colonoscopy: 1. 6 PM drink the first half of the bowel preparation solution. Drink one 8-ounce glass every 15 minutes. 2. Six hours before your colonoscopy, drink the second half of the solution. Drink one 8-ounce glass every 15 minutes. 3. You may continue a clear liquid diet until 3 hours before your colonoscopy. Bowel prep can work differently from person to person. Some people's bowels move slowly and they may need different instructions. Please see your doctor in office or virtually for personalized bowel prep instructions if you have: Medical condition that needs special accommodations Had a poor bowel prep results or failed bowel prep attempts in the past. Had difficulty with anesthesia during the procedure. FREQUENTLY ASKED QUESTIONS Q: What if I suffer from constipation? A: Recommend taking extra laxatives to resolve your constipation days prior to entering the bowel prep day. Q: What if have had prior poor preps results in past? A: Contact your physician as you will likely need additional bowel prep instructions. Q: What if I have motility issues like Parkinson's, MS (multiple sclerosis), wheelchair dependent, etc.? or on medications that slow bowel emptying (narcotics, gabapentin, anticholinergic medicationsetc.) A: Contact your physician as you will likely need extra time and additional laxatives to complete your bowel prep. Q: What if I cannot drink large volume of liquid? A: Start your prep 2-3 hours earlier to allow yourself more time to complete the entire prep. Q: What if I can't finish my bowel prep? A: If you cannot finish your entire bowel prep, it is likely that your colonoscopy will need to be rescheduled due to poor prep quality. Q: What if I had bariatric surgery? Do I still have to complete the entire prep? A: Yes, gastric bypass surgery involves the stomach & small bowel. You may need to drink smaller amounts, slower (may need more time to complete your bowel prep). Gastric bypass does not alter the length of your colon so you will need to complete the entire bowel prep, it may just take longer time to complete it. Q: What if I am on dialysis? A: Please consult your night auditor prior to scheduling to get instructions pertinent to you. In general, dialysis patients take the Golytely bowel prep and have the procedure same day of their dialysis (colonoscopy in AM, dialysis in PM). Q: How do I know if something is considered as clear liquid diet? A: If you can pour it in a glass and you can see through it, it is considered clear liquid Q: Can I eat nuts, seeds, beans, popcorn, dried fruits, vegetables & fruits that have skin peel? A: No, you will need to not eat these items starting 3 days prior to procedure. Q: Can I take Uber/Lyft/taxi/bus home? A: An adult MUST be present with you at check-in for your colonoscopy and remain in the endoscopy area until you are discharged. You can take Uber home only if this adult escort is with you at check in, remain in the endoscopy area until you are discharged, and takes the Uber with you to home. Q: Can I sleep it off here and drive myself home? A: No, you must have an adult with you at time of procedure check in, remain in the endoscopy center during your procedure, and drive you home. You cannot drive a vehicle after your procedure the rest of the day. [facility] NoteHNO ID: [id number] Author: SUSANA RAMIREZ APRN.STEPHANIE Service: ? Author Type: Nurse Practitioner Type: Progress Notes Filed: 12/24/2023 11:29 Note Text: CHIEF COMPLAINT: Patient presents with: Anemia: Diarrhea and blood in the stool This consult was requested by Marianna Wagner APRN* for an opinion regarding anemia. My final recommendations will be communicated to the requesting health care provider by way of the shared medical record for internal providers or letter via the [employer] for external providers. HPI: Analilia Melendrez is a 63 year old male with hx of AVR (bovine), pacemaker, DMII, HTN, chronic pancreatitis, GERD, HLD, CAD who presents for Anemia (Diarrhea and blood in the stool). He is anemic with hgb 10/hct 31.8 with macrocytic indices. He has had more fatigue and SOB. He has had epigastric pain for the past 6 months and it radiates to his back. If he is hungry, it hurts worse. He is losing a lot of weight (20 pounds over the past 6 months). He has no appetite. Denies any nausea or vomiting. Has diarrhea all the time and it is like bile. Denies any gerd or heartburn. No hx of PUD. No prior EGD. Last colonoscopy was many years ago and he states he had several polyps. CT pancreas 12/08/23 that showed changes of chronic pancreatitis; no identifiable pancreatic mass. He did have c.diff and was treated for this. Record Review: [facility] / Outside records reviewed. Latest Ref Rng 10/15/2023 WBC 3.70 - 11.00 k/uL 4.67 RBC 4.20 - 6.00 m/uL 2.68 (L) Hemoglobin 13.0 - 17.0 g/dL 10.0 (L) Hematocrit 39.0 - 51.0 % 31.8 (L) MCV 80.0 - 100.0 fL 118.7 (H) MCH 26.0 - 34.0 pg 37.3 (H) MCHC 30.5 - 36.0 g/dL 31.4 RDW-CV 11.5 - 15.0 % 13.3 Platelet Count 150 - 400 k/uL 202 MPV 9.0 - 12.7 fL 11.6 NRBC /100 WBC 0.0 Absolute nRBC <0.01 k/uL <0.01 Neut% % 49.0 Abs Neut (ANC) 1.45 - 7.50 k/uL 2.29 Lymph% % 39.0 Abs Lymph 1.00 - 4.00 k/uL 1.82 Erath% % 11.0 Abs Erath <0.87 k/uL 0.51 Eosin% % 0.0 Abs Eosin <0.46 k/uL 0.00 Baso% % 0.0 Abs Baso <0.11 k/uL 0.00 Myelo% % 1.0 Left Shift Present Platelet Estimate Adequate Red Cell Morph Reviewed: see results of individual morphologies Ovalocytes Few RBC Fragments None Seen Few ! DTYPE Manual Protein, Total 6.3 - 8.0 g/dL 5.2 (L) Albumin 3.9 - 4.9 g/dL 2.4 (L) Calcium 8.5 - 10.2 mg/dL 7.9 (L) Bilirubin, Total 0.2 - 1.3 mg/dL <0.2 (L) Alkaline Phosphatase 38 - 113 U/L 134 (H) AST 14 - 40 U/L 64 (H) ALT 10 - 54 U/L 26 Glucose 74 - 99 mg/dL 130 (H) BUN 9 - 24 mg/dL 14 Creatinine 0.73 - 1.22 mg/dL 1.55 (H) Sodium 136 - 144 mmol/L 142 Potassium 3.7 - 5.1 mmol/L 4.8 Chloride 98 - 107 mmol/L 103 CO2 22 - 30 mmol/L 28 Anion Gap 8 - 15 mmol/L 11 eGFR >=60 mL/min/1.73m? 51 (L) Iron 41 - 186 ug/dL 96 TIBC 232 - 386 ug/dL <113 (L) Transferrin Saturation 15.0 - 57.0 % >85.0 (H) Ferritin 30.3 - 565.7 ng/mL 630.0 (H) Folate >4.7 ng/mL 16.4 Vitamin B12 232 - 1,245 pg/mL 1,514 (H) Legend: (L) Low (H) High ! Abnormal PAST MEDICAL HISTORY Diagnosis Date Alcohol-induced chronic pancreatitis (HCC) Anxiety Aortic aneurysm (HCC) S/P Repair Aortic valve disorder S/P Replacement CAD (coronary artery disease) nonobstructive Chronic kidney disease, stage III (moderate) (HCC) Clostridioides difficile infection Coronary artery disease Depression Diabetes mellitus, type II (HCC) Insulin dependent History of alcohol abuse Hx of ascending aorta repair Hyperlipidemia Hypertension Non-ST elevation [place] (NSTEMI) (HCC) 06/24 Pacemaker Paroxysmal atrial fibrillation (HCC) RBBB (right bundle branch block) S/P aortic valve replacement [facility] [facility] mechanical Syncope Tachy-fernando syndrome (HCC) Tobacco abuse chronic Tobacco user Type 2 diabetes mellitus (HCC) PAST SURGICAL HISTORY Procedure Laterality Date ABD AORTIC ANEURYSM REPAIR ASCENDING AORTA GRAFT W/AORTIC ROOT COLONOSCOPY SCREENING In [place] CORONARY ARTERY BYPASS GRAFT HX 2017 2005 HEART CATHETERIZATION 06/24/2016 HEART VALVE REPLACEMENT 2017 Aortic x2 ;2015 HERNIA REPAIR HX PACEMAKER 06/25/2016 REPLACEMENT AORTIC VALVE W BYPASS Allergies: ALLERGIES No Known Allergies Medications: Insulin [place], Disposable, (BD ULTRA-FINE NORBERTO PEN NEEDLE) 32 gauge x 5/32 1 Each three times a day. metFORMIN (GLUCOPHAGE) 500 mg tablet Take 1 tablet by mouth daily with breakfast. Cholecalciferol, Vitamin D3, (VITAMIN D-3) 50 mcg (2,000 unit) cap Take 1 capsule by mouth once daily. ferrous sulfate 325 mg (65 mg iron) tablet Take 1 tablet by mouth once daily. Blood-Glucose Meter,Continuous (FREESTYLE MANGO 3 READER) misc Use to check blood sugar at least four (4) times daily. Blood-Glucose Sensor (FREESTYLE MANGO 3 SENSOR) daniel Apply new sensor every fourteen (14) days to upper arm. FARXIGA 10 mg tablet Take 1 tablet by mouth daily with breakfast. insulin glargine 100 unit/mL (3 mL) In (more content not included)...[facility]11-15-2024 History of Present illness Narrative* Susana Ramirez APRN.[facility] - 12/24/2023 10:35 AM EST CHIEF COMPLAINT: Patient presents with: Anemia: Diarrhea and blood in the stool This consult was requested by Marianna Wagner APRN* for an opinion regarding anemia. My final recommendations will be communicated to the requesting health care provider by way of the shared medical record for internal providers or letter via the [employer] for external providers. HPI: Analilia Melendrez is a 63 year old male with hx of AVR (bovine), pacemaker, DMII, HTN, chronic pancreatitis, GERD, HLD, CAD who presents for Anemia (Diarrhea and blood in the stool). He is anemic with hgb 10/hct 31.8 with macrocytic indices. He has had more fatigue and SOB. He has had epigastric pain for the past 6 months and it radiates to his back. If he is hungry, it hurts worse. He is losing a lot of weight (20 pounds over the past 6 months). He has no appetite. Denies any nausea or vomiting. Has diarrhea all the time and it is like bile. Denies any gerd or heartburn. No hx of PUD. No prior EGD. Last colonoscopy was many years ago and he states he had several polyps. CT pancreas 12/08/23 that showed changes of chronic pancreatitis; no identifiable pancreatic mass. He did have c.diff and was treated for this. Record Review: [facility] / Outside records reviewed. Latest Ref Rng 10/15/2023 WBC 3.70 - 11.00 k/uL 4.67 RBC 4.20 - 6.00 m/uL 2.68 (L) Hemoglobin 13.0 - 17.0 g/dL 10.0 (L) Hematocrit 39.0 - 51.0 % 31.8 (L) MCV 80.0 - 100.0 fL 118.7 (H) MCH 26.0 - 34.0 pg 37.3 (H) MCHC 30.5 - 36.0 g/dL 31.4 RDW-CV 11.5 - 15.0 % 13.3 Platelet Count 150 - 400 k/uL 202 MPV 9.0 - 12.7 fL 11.6 NRBC /100 WBC 0.0 Absolute nRBC <0.01 k/uL <0.01 Neut% % 49.0 Abs Neut (ANC) 1.45 - 7.50 k/uL 2.29 Lymph% % 39.0 Abs Lymph 1.00 - 4.00 k/uL 1.82 Erath% % 11.0 Abs Erath <0.87 k/uL 0.51 Eosin% % 0.0 Abs Eosin <0.46 k/uL 0.00 Baso% % 0.0 Abs Baso <0.11 k/uL 0.00 Myelo% % 1.0 Left Shift Present Platelet Estimate Adequate Red Cell Morph Reviewed: see results of individual morphologies Ovalocytes Few RBC Fragments None Seen Few ! DTYPE Manual Protein, Total 6.3 - 8.0 g/dL 5.2 (L) Albumin 3.9 - 4.9 g/dL 2.4 (L) Calcium 8.5 - 10.2 mg/dL 7.9 (L) Bilirubin, Total 0.2 - 1.3 mg/dL <0.2 (L) Alkaline Phosphatase 38 - 113 U/L 134 (H) AST 14 - 40 U/L 64 (H) ALT 10 - 54 U/L 26 Glucose 74 - 99 mg/dL 130 (H) BUN 9 - 24 mg/dL 14 Creatinine 0.73 - 1.22 mg/dL 1.55 (H) Sodium 136 - 144 mmol/L 142 Potassium 3.7 - 5.1 mmol/L 4.8 Chloride 98 - 107 mmol/L 103 CO2 22 - 30 mmol/L 28 Anion Gap 8 - 15 mmol/L 11 eGFR >=60 mL/min/1.73m 51 (L) Iron 41 - 186 ug/dL 96 TIBC 232 - 386 ug/dL <113 (L) Transferrin Saturation 15.0 - 57.0 % >85.0 (H) Ferritin 30.3 - 565.7 ng/mL 630.0 (H) Folate >4.7 ng/mL 16.4 Vitamin B12 232 - 1,245 pg/mL 1,514 (H) Legend: (L) Low (H) High ! Abnormal PAST MEDICAL HISTORY Diagnosis Date Alcohol-induced chronic pancreatitis (HCC) Anxiety Aortic aneurysm (HCC) S/P Repair Aortic valve disorder S/P Replacement CAD (coronary artery disease) nonobstructive Chronic kidney disease, stage III (moderate) (HCC) Clostridioides difficile infection Coronary artery disease Depression Diabetes mellitus, type II (HCC) Insulin dependent History of alcohol abuse Hx of ascending aorta repair Hyperlipidemia Hypertension Non-ST elevation [place] (NSTEMI) (HCC) 06/24 Pacemaker Paroxysmal atrial fibrillation (HCC) RBBB (right bundle branch block) S/P aortic valve replacement [facility] [facility] mechanical Syncope Tachy-fernando syndrome (HCC) Tobacco abuse chronic Tobacco user Type 2 diabetes mellitus (HCC) PAST SURGICAL HISTORY Procedure Laterality Date ABD AORTIC ANEURYSM REPAIR ASCENDING AORTA GRAFT W/AORTIC ROOT COLONOSCOPY SCREENING In [place] CORONARY ARTERY BYPASS GRAFT HX 2016 2005 HEART CATHETERIZATION 06/24/2016 HEART VALVE REPLACEMENT 2017 Aortic x2 ;2014 HERNIA REPAIR HX PACEMAKER 06/25/2016 REPLACEMENT AORTIC VALVE W BYPASS Allergies: ALLERGIES No Known Allergies Medications: Insulin [place], Disposable, (BD ULTRA-FINE NORBERTO PEN NEEDLE) 32 gauge x 5/32 1 Each three times a day. metFORMIN (GLUCOPHAGE) 500 mg tablet Take 1 tablet by mouth daily with breakfast. Cholecalciferol, Vitamin D3, (VITAMIN D-3) 50 mcg (2,000 unit) cap Take 1 capsule by mouth once daily. ferrous sulfate 325 mg (65 mg iron) tablet Take 1 tablet by mouth once daily. Blood-Glucose Meter,Continuous (FREESTYLE MANGO 3 READER) [facility] Use to check blood sugar at least four (4) times daily. Blood-Glucose Sensor (FREESTYLE MANGO 3 SENSOR) daniel Apply new sensor every fourteen (14) days to upper arm. FARXIGA 10 mg tablet Take 1 tablet by mouth daily with breakfast. insulin glargine 100 unit/mL (3 mL) Inject 10 Units subcutaneously once daily. metoprolol tartrate, short acting, (LOPRESSOR) 50 mg tablet Take 1 tablet by mouth two times a day. ramipril (ALTACE) 10 mg capsule Take 10 mg by mouth once daily. pantoprazole DR (PROTONIX) 40 mg tablet Take 1 tablet by mouth two times a day. 30 minutes before eating. dicyclomine (BENTYL) 10 mg capsule Take 1 capsule by mouth before meals and at bedtime. atorvastatin (LIPITOR) 40 mg tablet TAKE 1 TABLET BY MOUTH ONCE DAILY. MULTIVITAMIN ORAL Take 1 tablet by mouth once daily. FAMILY HISTORY Problem Relation Age of Onset Dementia Mother Coronary Artery Disease Father Colon Cancer No Family History Employer And Job Title: None on file Years Of Education Completed: Not specified Marital Status: Single Social History Tobacco Use Smoking status: Every Day Types: Cigarettes Smokeless tobacco: Never Tobacco comments: Pt smoked 1 pack daily for x 40 years, pt has cut back to 1 pack per week x 1 year Vaping Use Vaping status: Never Used Substance Use Topics Alcohol use: Yes Alcohol/week: 2.0 standard drinks of alcohol Types: 2 Cans of beer per week Drug use: Never Review of Systems: Review of Systems Constitutional: Positive for appetite change, fatigue and unexpected weight change. HENT: Positive for hearing loss. Respiratory: Positive for shortness of breath. Cardiovascular: Positive for palpitations and leg swelling. Gastrointestinal: Positive for abdominal pain, blood in stool and diarrhea. Change in bowel habits, Gas All other systems reviewed and are negative. Are you taking any blood thinners? No Physical Examination: Pulse 70 Ht 5' 11 (1.80m) Wt 136 lb (61.7kg) BMI 18.98 kg/(m^2). Physical Exam Constitutional: Appearance: Normal appearance. HENT: Head: Normocephalic and atraumatic. Eyes: General: No scleral icterus. Cardiovascular: Rate and Rhythm: Normal rate and regular rhythm. Heart sounds: Murmur heard. Systolic murmur is present. Pulmonary: Breath sounds: Normal breath sounds. Abdominal: General: Abdomen is flat. Bowel sounds are normal. There is no distension. Palpations: Abdomen is soft. Tenderness: There is abdominal tenderness in the right lower quadrant and epigastric area. There isno guarding or rebound. Skin: General: Skin is warm and dry. Neurological: Mental Status: He is alert and oriented to person, place, and time. Psychiatric: Mood and Affect: Mood normal. Behavior: Behavior normal. ASSESSMENT: (D64.9) Anemia, unspecified type (primary encounter diagnosis) (R63.4) Weight loss (K86.1) Chronic pancreatitis, unspecified pancreatitis type (HCC) (R10.13) Epigastric pain (R10.31) Right lower quadrant abdominal pain 1. Anemia, unspecified type - Rule out PU/DU, malignancy - plan for EGD and colonoscopy for further evaluation - COLONOSCOPY DIAGNOSTIC; Future - EGD DIAGNOSTIC; Future 2. Weight loss - could be related to chronic pancreatitis. Will rule out any malignancy or other GI path. - COLONOSCOPY DIAGNOSTIC; Future - EGD DIAGNOSTIC; Future 3. Chronic pancreatitis, unspecified pancreatitis type (HCC) - could be contributing to pain, weight loss and diarrhea. - start Creon 2 pills with meals and 1 pill with snacks - [id number]-siiqvmr (CREON 36) 36,000-114,000- 180,000 unit delayed release capsule; Take 2 pills by mouth with first bite of meal and take 1 pill with snacks. Max 10 per day. Dispense: 300 capsule; Refill: 3 - EGD DIAGNOSTIC; Future 4. Epigastric pain - continue with pantorpazole 40mg BID - EGD DIAGNOSTIC; Future 5. Right lower quadrant abdominal pain - colonoscopy Follow up in office after eyals Susana Ramirez APRN.CNP December 24, 2023 11:28 AM documented in [facility] encounter[facility] Telephone encounter Note * Telephone Encounter - Suzi Haynes MA - 12/16/2023 5:04 PM EST Patient informed of results and to keep GI appointment on 12/24/23 at 11:20, reiterated the appointment and time to patient multiple times. Suzi Haynes MA [facility]11-07-2024 Telephone encounter Note* Telephone Encounter - Suzi Haynes MA - 12/16/2023 5:04 PM EST ----- Message from Marianna Wagner APRN.SPLUNK D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 sent at 12/15/2023 6:32 PM EST ----- CT pancreas showed chronic calcified pancreatitis with multiple stones and dilation of the duct. There was no mass. He needs to make the appointment with GI on 12/23 [facility]11-07-2024 Miscellaneous Notes* Telephone Encounter - Suzi Haynes MA - 12/16/2023 5:04 PM EST Patient informed of results and to keep GI appointment on 12/24/23 at 11:20, reiterated the appointment and time to patient multiple times. Suzi Haynes MA * Telephone Encounter - Suzi Haynes MA - 12/16/2023 5:04 PM EST ----- Message from Marianna Wagner APRN.SPL[employer] D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 sent at 12/15/2023 6:32 PM EST ----- CT pancreas showed chronic calcified pancreatitis with multiple stones and dilation of the duct. There was no mass. He needs to make the appointment with GI on 12/23 documented in this encounterDun[facility]10-30-[facility]24 Miscellaneous Notes* [facility] - Anny Durham, TAMMY - 12/08/2023 9:45 AM EDT Radiology Service Progress Note PATIENT NAME: Analilia Melendrez DATE OF SERVICE: December 08, 2023 TIME: 10:57 AM PATIENT IDENTITY VERIFICATION COMPLETED USING TWO (2) IDENTIFIERS: Name and Date of confirmedby patient verbally and Name and Date of confirmed by identification band. FALL SCREENING: Has the patient had 2 falls in the last year or 1 fall with injury or currently using an Ambulatory Assistive Device (Walker, Cane, Wheelchair, Crutches, etc.)? No PATIENT GENDER DATA: Male PATIENT RELEVANT IMPLANT DATA REVIEWED: Not Applicable PATIENT PRESENTS WITH AN IMPLANTABLE OR ATTACHED DIVIDEND CLERK: No RADIOLOGY DEPARTMENT: CT; Exam(s) Completed: Pancreas PERIPHERAL IV DATA: Site assessment: Clean,Dry and Intact, Site disposition Discontinued SIGNED BY: TAMMY Thomas December 08, 2023 10:57 AM documented in this encounterDunlap [facility]10-30-2024 Nurse Note* Sigrid Mata RN - 12/08/2023 9:45 AM EDT Radiology Service Progress Note DATE OF SERVICE: December 08, 2023 TIME: 10:42 AM PATIENT IDENTITY VERIFICATION COMPLETED USING TWO (2) STANDARD IDENTIFIERS: Name and Date of confirmed by patient verbally and Name and Date of confirmed by identification band. FALL SCREENING: Has the patient had 2 falls in the last year or 1 fall with injury or currently using an Ambulatory Assistive Device (Walker, Cane, Wheelchair, Crutches, etc.)? No PATIENT GENDER DATA: Male ALLERGIES: Reviewed and unchanged CONTRAST ALLERGY: No EXAM: CT -CONTRAST INDUCED NEPHROPATHY RISK FACTORS: Patient age > 60 years CREATININE: Creatinine Date Value Ref Range Status 10/15/2023 1.55 (H) 0.73 - 1.22 mg/dL Final 09/25/2023 1.06 0.73 - 1.22 mg/dL Final 08/09/2023 1.36 (H) 0.73 - 1.22 mg/dL Final Estimated Glomerular Filtration Rate Date Value Ref Range Status 10/15/2023 51 (L) >=60 mL/min/1.73m Final Comment: Estimated Glomerular Filtration Rate (eGFR) is calculated using the 2020 CKD-EPI creatinine equation. This equation utilizes serum creatinine, sex, and age as parameters. The creatinine assay has traceable calibration to isotope dilution- mass spectrometry. Refer to KDIGO guidelines for clinical interpretation. In patients with unstable renal function, e.g. those with acute kidney injury, the eGFRmay not accurately reflect actual GFR. eGFR- Date Value Ref Range Status 04/29/2017 >60 Final P.O.C.T. RESULTS: POC done: Yes, See Lab Tab December 08, 2023 TREATMENT: N/A IV SITE: Ambulatory: A peripheral IV was started in the Left antecubital site with a Angio cath: 20gauge. IV SITE APPEARANCE: Clean,Dry and Intact SIGNATURE: Sigrid Mata RN PATIENT NAME: Analilia Melendrez DATE: December 08, 2023 TIME: 10:42 AM [facility] Nurse Note* Sigrid Mata RN - 12/08/2023 9:45 AM EDT Radiology Service Progress Note DATE OF SERVICE: December 08, 2023 TIME: 10:42 AM PATIENT IDENTITY VERIFICATION COMPLETED USING TWO (2) STANDARD IDENTIFIERS: Name and Date of confirmed by patient verbally and Name and Date of confirmed by identification band. FALL SCREENING: Has the patient had 2 falls in the last year or 1 fall with injury or currently using an Ambulatory Assistive Device (Walker, Cane, Wheelchair, Crutches, etc.)? No PATIENT GENDER DATA: Male ALLERGIES: Reviewed and unchanged CONTRAST ALLERGY: No EXAM: CT -CONTRAST INDUCED NEPHROPATHY RISK FACTORS: Patient age > 60 years CREATININE: Creatinine Date Value Ref Range Status 10/15/2023 1.55 (H) 0.73 - 1.22 mg/dL Final 09/25/2023 1.06 0.73 - 1.22 mg/dL Final 08/09/2023 1.36 (H) 0.73 - 1.22 mg/dL Final Estimated Glomerular Filtration Rate Date Value Ref Range Status 10/15/2023 51 (L) >=60 mL/min/1.73m Final Comment: Estimated Glomerular Filtration Rate (eGFR) is calculated using the 2020 CKD-EPI creatinine equation. This equation utilizes serum creatinine, sex, and age as parameters. The creatinine assay has traceable calibration to isotope dilution- mass spectrometry. Refer to KDIGO guidelines for clinical interpretation. In patients with unstable renal function, e.g. those with acute kidney injury, the eGFRmay not accurately reflect actual GFR. eGFR- Date Value Ref Range Status 04/29/2017 >60 Final P.O.C.T. RESULTS: POC done: Yes, See Lab Tab December 08, 2023 TREATMENT: N/A IV SITE: Ambulatory: A peripheral IV was started in the Left antecubital site with a Angio cath: 20gauge. IV SITE APPEARANCE: Clean,Dry and Intact SIGNATURE: Sigrid Mata RN PATIENT NAME: Analilia Melendrez DATE: December 08, 2023 TIME: 10:42 AM documented in this encounterDunlap [facility]10-30-2024 Progress note* [facility] - Anny Durham CT - 12/08/2023 9:45 AM EDT Radiology Service Progress Note PATIENT NAME: Analilia Melendrez DATE OF SERVICE: December 08, 2023 TIME: 10:57 AM PATIENT IDENTITY VERIFICATION COMPLETED USING TWO (2) IDENTIFIERS: Name and Date of confirmedby patient verbally and Name and Date of confirmed by identification band. FALL SCREENING: Has the patient had 2 falls in the last year or 1 fall with injury or currently using an Ambulatory Assistive Device (Walker, Cane, Wheelchair, Crutches, etc.)? No PATIENT GENDER DATA: Male PATIENT RELEVANT IMPLANT DATA REVIEWED: Not Applicable PATIENT PRESENTS WITH AN IMPLANTABLE OR ATTACHED DIVIDEND CLERK: No RADIOLOGY DEPARTMENT: CT; Exam(s) Completed: Pancreas PERIPHERAL IV DATA: Site assessment: Clean,Dry and Intact, Site disposition Discontinued SIGNED BY: TAMMY Thomas December 08, 2023 10:57 AM [facility]10-[facility] Telephone encounter Note* Telephone Encounter - Marianna Wagner APRN.CNP - 12/07/2023 1:00 PM EDT New order for CT pancreas was placed since last one was discontinued. [facility] Miscellaneous Notes* Telephone Encounter - Marianna Wagner APRN.CNP - 12/07/2023 1:00 PM EDT New order for CT pancreas was placed since last one was discontinued. documented in this encounterDunlap [facility] Hospital10-21-2024 Telephone encounter Note * Telephone Encounter - Marianna Wagner APRN.CNP - 11/29/2023 12:14 PM EDT Completed peer to peer for CT pancreas with IV contrast and obtained approval. # [id number] until 11/30/2023-12/31/2023 He is scheduled tomorrow for the CT. Spoke with Dr. Murillo with [facility] for reference. [facility] Miscellaneous Notes* Telephone Encounter - Marianna Wagner APRN.CNP - 11/29/2023 12:14 PM EDT Completed peer to peer for CT pancreas with IV contrast and obtained approval. # [id number] until 11/30/2023-12/31/2023 He is scheduled tomorrow for the CT. Spoke with Dr. Murillo with [facility] for reference. * Telephone Encounter - Twyla Espana - 11/25/2023 12:53 PM EDT Denial: CPT 54284-CV PANCREAS W IVCON Denial Type: Payer Clinical Guidelines Not Met Denial Rationale: The notes sent do not meet Abdomen CT guidelines. Thus, the procedure is not shown to be medically needed. A physician reviewer made this decision based on a review of the followingnotes that were sent you have a belly problem. Prior to an approval, the following doctors notes should be sent doctors notes that say why the test Abdomen and Pelvis CT Computed Tomography that you already did on 10.21.23 is not enough to show your doctor how to treat you. Evolent Clinical Guideline [address] was used to make this decision. These guidelines were developed from practice experience, literature reviews, specialty criteria sets, and observed data. Is Peer to Peer Available? Yes Peer to Peer Deadline: 11/30/2023 Insurance Case#[id number] Peer to Peer opt 2 (enter tracking#) / opt 1 Denial sent to providers email documented in this encounterDunlap [facility]10-18-2024 Telephone encounter Note * Telephone Encounter - Andrew Ponce MA - 11/26/2023 10:30 AM EDT Patient requesting refills: Last office visit 10/14/2023. Last refill . Requested Prescriptions Pending Prescriptions Disp Refills Insulin Worthing[place], Disposable, (BD ULTRA-FINE NORBERTO PEN NEEDLE) 32 gauge x 5/32 Sig: three times a day. Please review and advise. Andrew Ponce MA [facility]10-18-2024 Miscellaneous Notes* Telephone Encounter - Andrew Ponce MA - 11/26/2023 10:30 AM EDT Patient requesting refills: Last office visit 10/14/2023. Last refill . Requested Prescriptions Pending Prescriptions Disp Refills Insulin Worthing[place], Disposable, (BD ULTRA-FINE NORBERTO PEN NEEDLE) 32 gauge x 5/32 Sig: three times a day. Please review and advise. Andrew Ponce MA documented in this encounterDunlap [facility] Hospital10-17-2024 Telephone encounter Note * Telephone Encounter - Twyla Espana - 11/25/2023 12:53 PM EDT Denial: CPT 42140-MQ PANCREAS W IVCON Denial Type: Payer Clinical Guidelines Not Met Denial Rationale: The notes sent do not meet Abdomen CT guidelines. Thus, the procedure is not shown to be medically needed. A physician reviewer made this decision based on a review of the followingnotes that were sent you have a belly problem. Prior to an approval, the following doctors notes should be sent doctors notes that say why the test Abdomen and Pelvis CT Computed Tomography that you already did on 10.21.23 is not enough to show your doctor how to treat you. Evolent Clinical Guideline [address] was used to make this decision. These guidelines were developed from practice experience, literature reviews, specialty criteria sets, and observed data. Is Peer to Peer Available? Yes Peer to Peer Deadline: 11/30/2023 Insurance Case#[id number] Peer to Peer opt 2 (enter tracking#) / opt 1 Denial sent to providers email [facility] Telephone encounter Note* Telephone Encounter - Giulia Rogel MA - 11/16/2023 5:16 PM EDT Patient is informed Giulia Rogel MA [facility]10-08-2024 Miscellaneous Notes* Telephone Encounter - Giulia Rogel MA - 11/16/2023 5:16 PM EDT Patient is informed Giulia Rogel MA * Telephone Encounter - Marianna Wagner APRN.CNP - 11/16/2023 4:49 PM EDT Please let the patient know that I contacted GI and there is nothing available until his appointment in December. He needs to make this appointment. * Telephone Encounter - Carolina Benito - 11/16/2023 4:20 PM EDT Unfortunately, we do not have any openings sooner as of right now. I would suggest if he is needingto be seen urgently to contact central scheduling at if he is willing to go to any location for care. We did add him to the wait list. Carolina Benito * Telephone Encounter - Marianna Wagner APRN.CNP - 11/16/2023 3:03 PM EDT I have already tried to get him a sooner appointment but then he missed that appointment. I will send the request to their office but there may not be anything available. * Telephone Encounter - Suzi Haynes MA - 11/16/2023 2:32 PM EDT Patient left message stating he saw the blade aligner yesterday and they are very worried about his stomach and wants him to be seen by GI sooner than 12/24/23. Patient states he has called and they cannot see him any sooner and wanted to know if there was anything Marianna could do. Please advise. Suzi Haynes MA documented in this encounterDunlap [facility] Hospital10-08-2024 Telephone encounter Note * Telephone Encounter - Marianna Wagner APRN.CNP - 11/16/2023 4:49 PM EDT Please let the patient know that I contacted GI and there is nothing available until his appointment in December. He needs to make this appointment. [facility]10-08-[facility] Telephone encounter Note* Telephone Encounter - Jigna Carolina - 11/16/2023 4:20 PM EDT Unfortunately, we do not have any openings sooner as of right now. I would suggest if he is needingto be seen urgently to contact central scheduling at if he is willing to go to any location for care. We did add him to the wait list. Carolinasonja NeilJigna [facility]10-08-20[facility] Telephone encounter Note* Telephone Encounter - Marianna Wagner APRN.CNP - 11/16/2023 3:03 PM EDT I have already tried to get him a sooner appointment but then he missed that appointment. I will send the request to their office but there may not be anything available. [facility] Telephone encounter Note* Telephone Encounter - Suzi Haynes MA - 11/16/2023 2:32 PM EDT Patient left message stating he saw the blade aligner yesterday and they are very worried about his stomach and wants him to be seen by GI sooner than 12/24/23. Patient states he has called and they cannot see him any sooner and wanted to know if there was anything Marianna could do. Please advise. Suzi Haynes MA [facility]10-07-2024 NoteHNO ID: [id number] Author: VANDANA EDWARDS, ? Service: ? Author Type: Nurse Practitioner Type: Progress Notes Filed: 11/15/2023 14:14 Note Text: Progress Note Analilia Melendrez 1960 Encounter date: 11/15/2023 HPI: Analilia Melendrez is a 63 year old male with PMHx, CKD, Aortic aneurysm, chronic pancreatitis, cirrhosis, T2DM, alcohol abuse, nicotine dependence. Pt referred by PCP, Marianna Wagner for evaluation of anemia. Mr. Melendrez presents today with family. He reports feeling ok. Denies fevers, chills or NS. Denies bony aches or pains. No rash, skin changes or neuropathy. Endorses lack of appetite, unintentional weight loss over the last few months. Now chronic diarrhea at min 6 times per day, orange. Occasionally bloody. On a bad day >10x per day. This has been ongoing for several months. Tested positive for cdiff 10/13/2024. He believes he took all abx as prescribed. He did not notice any difference in diarrhea. He states that he was unaware that he had c diff. Had to cancel last GI visit as he did not have a ride. He states he was told to go to the ED if no improvements however no further work up was performed. No colonoscopy or EDG in the last 20 years. He has been told that he had bleeding ulcers. Denies dark or tarry stools. Denies abd pains. Denies hematuria, hematemesis. No urinary issues. No SOB, CP, palpitations. Occasional headaches, uses NSAIDs. Occasional reflux. He was in residential for 6 weeks in june for rehab from seizure/TIA. Tolerating PO iron. No personal or family hx or bleeding disorders. Brother hx of leukemia. PAST MEDICAL HISTORY Diagnosis Date Alcohol-induced chronic pancreatitis (HCC) Anxiety Aortic aneurysm (HCC) S/P Repair Aortic valve disorder S/P Replacement CAD (coronary artery disease) nonobstructive Chronic kidney disease, stage III (moderate) ([facility]) Clostridioides difficile infection Coronary artery disease Depression Diabetes mellitus, type II (HCC) Insulin dependent History of alcohol abuse Hx of ascending aorta repair Hyperlipidemia Hypertension Non-ST elevation [place] (NSTEMI) (HCC) 06/24 Pacemaker Paroxysmal atrial fibrillation (HCC) RBBB (right bundle branch block) S/P aortic valve replacement St. Wero mechanical Syncope Tachy-fernando syndrome (HCC) Tobacco abuse chronic Tobacco user Type 2 diabetes mellitus (HCC) PAST SURGICAL HISTORY Procedure Laterality Date ABD AORTIC ANEURYSM REPAIR ASCENDING AORTA GRAFT W/AORTIC ROOT CORONARY ARTERY BYPASS GRAFT HX 2017 2005 HEART CATHETERIZATION 06/24/2016 HEART VALVE REPLACEMENT 2017 Aortic x2 ;2015 HERNIA REPAIR HX PACEMAKER 06/25/2016 REPLACEMENT AORTIC VALVE W BYPASS Current Outpatient Medications Medication Sig Dispense Refill metFORMIN (GLUCOPHAGE) 500 mg tablet Take 1 tablet by mouth daily with breakfast. Cholecalciferol, Vitamin D3, (VITAMIN D-3) 50 mcg (2,000 unit) cap Take 1 capsule by mouth once daily. 90 capsule 1 ferrous sulfate 325 mg (65 mg iron) tablet Take 1 tablet by mouth once daily. 30 tablet 2 Blood-Glucose Meter,Continuous (FREESTYLE MANGO 3 READER) misc Use to check blood sugar at least four (4) times daily. 1 Each 0 Blood-Glucose Sensor (FREESTYLE MANGO 3 SENSOR) daniel Apply new sensor every fourteen (14) days to upper arm. 6 Each 4 FARXIGA 10 mg tablet Take 1 tablet by mouth daily with breakfast. insulin glargine 100 unit/mL (3 mL) Inject 10 Units subcutaneously once daily. 1 Each 0 metoprolol tartrate, short acting, (LOPRESSOR) 50 mg tablet Take 1 tablet by mouth two times a day. 60 tablet 2 ramipril (ALTACE) 10 mg capsule Take 10 mg by mouth once daily. pantoprazole DR (PROTONIX) 40 mg tablet Take 1 tablet by mouth two times a day. 30 minutes before eating. 60 tablet 2 dicyclomine (BENTYL) 10 mg capsule Take 1 capsule by mouth before meals and at bedtime. 120 capsule 2 atorvastatin (LIPITOR) 40 mg tablet TAKE 1 TABLET BY MOUTH ONCE DAILY. 30 tablet 11 MULTIVITAMIN ORAL Take 1 tablet by mouth once daily. Insulin Worthington, Disposable, (NORBERTO PEN NEEDLE) 32 gauge x 5/32 ndle 1 application three times daily. 100 Each 1 No current facility-administered medications for this visit. ALLERGIES No Known Allergies FAMILY HISTORY Problem Relation Age of Onset Dementia Mother Coronary Artery Disease Father Social History Tobacco Use Smoking status: Every Day Types: Cigarettes Smokeless tobacco: Never Tobacco comments: Pt smoked 1 pack daily for x 40 years, pt has cut back to 1 pack per week x 1 year Substance Use Topics Alcohol use: Yes Alcohol/week: 2.0 standard drinks of alcohol Types: 2 Cans of beer per week Drug use: Never Review of Systems: Negative except as noted in HPI reviewed 11/15/2023 Physical Exam: BP 141/105 Pulse 106 Temp (Src) 97.7 (Temporal) Ht 5' 10 (1.78m) Wt 132 lb (59.9kg) SpO2 98% BMI 18.94 kg/(m2). General: Age-appropriate well devel (more content not included)...[facility]10-07-2024 History of Present illness Narrative* EdwardsVandana vines - 11/15/2023 10:41 AM EDT Progress Note Analilia Melendrez 1960 Encounter date: 11/15/2023 HPI: Analilia Melendrez is a 63 year old male with PMHx, CKD, Aortic aneurysm, chronic pancreatitis, cirrhosis, T2DM, alcohol abuse, nicotine dependence. Pt referred by PCP, Marianna Wagner for evaluation of anemia. Mr. Melendrez presents today with family. He reports feeling ok. Denies fevers, chills or NS. Denies bony aches or pains. No rash, skin changes or neuropathy. Endorses lack of appetite, unintentional weight loss over the last few months. Now chronic diarrhea at min 6 times per day, orange. Occasionally bloody. On a bad day >10x per day. This has been ongoing for several months. Tested positive for cdiff 10/13/2024. He believes he took all abx as prescribed. He did not notice any difference in diarrhea. He states that he was unaware that he had c diff. Had to cancel last GI visit as he did not have a ride. He states he was told to go to the ED if no improvements however no further work up was performed. No colonoscopy or EDG inthe last 20 years. He has been told that he had bleeding ulcers. Denies dark or tarry stools. Denies abd pains. Denies hematuria, hematemesis. No urinary issues. No SOB, CP, palpitations. Occasional headaches, uses NSAIDs. Occasional reflux. He was in residential for 6 weeks in june for rehab from seizure/TIA. Tolerating PO iron. No personal or family hx or bleeding disorders. Brother hx of leukemia. PAST MEDICAL HISTORY Diagnosis Date Alcohol-induced chronic pancreatitis (HCC) Anxiety Aortic aneurysm (HCC) S/P Repair Aortic valve disorder S/P Replacement CAD (coronary artery disease) nonobstructive Chronic kidney disease, stage III (moderate) ([facility]) Clostridioides difficile infection Coronary artery disease Depression Diabetes mellitus, type II ([facility]) Insulin dependent History of alcohol abuse Hx of ascending aorta repair Hyperlipidemia Hypertension Non-ST elevation AZ (NSTEMI) ([facility]) 06/24 Pacemaker Paroxysmal atrial fibrillation ([facility]) RBBB (right bundle branch block) S/P aortic valve replacement St. Wero mechanical Syncope Tachy-fernando syndrome ([facility]) Tobacco abuse chronic Tobacco user Type 2 diabetes mellitus ([facility]) PAST SURGICAL HISTORY Procedure Laterality Date ABD AORTIC ANEURYSM REPAIR ASCENDING AORTA GRAFT W/AORTIC ROOT CORONARY ARTERY BYPASS GRAFT HX 2016 2005 HEART CATHETERIZATION 06/24/2016 HEART VALVE REPLACEMENT 2017 Aortic x2 ;2014 HERNIA REPAIR HX PACEMAKER 06/25/2016 REPLACEMENT AORTIC VALVE W BYPASS Current Outpatient Medications Medication Sig Dispense Refill metFORMIN (GLUCOPHAGE) 500 mg tablet Take 1 tablet by mouth daily with breakfast. Cholecalciferol, Vitamin D3, (VITAMIN D-3) 50 mcg (2,000 unit) cap Take 1 capsule by mouth once daily. 90 capsule 1 ferrous sulfate 325 mg (65 mg iron) tablet Take 1 tablet by mouth once daily. 30 tablet 2 Blood-Glucose Meter,Continuous (FREESTYLE MANGO 3 READER) [facility] Use to check blood sugar at least four (4) times daily. 1 Each 0 Blood-Glucose Sensor (FREESTYLE MANGO 3 SENSOR) daniel Apply new sensor every fourteen (14) days to upper arm. 6 Each 4 FARXIGA 10 mg tablet Take 1 tablet by mouth daily with breakfast. insulin glargine 100 unit/mL (3 mL) Inject 10 Units subcutaneously once daily. 1 Each 0 metoprolol tartrate, short acting, (LOPRESSOR) 50 mg tablet Take 1 tablet by mouth two times a day.60 tablet 2 ramipril (ALTACE) 10 mg capsule Take 10 mg by mouth once daily. pantoprazole DR (PROTONIX) 40 mg tablet Take 1 tablet by mouth two times a day. 30 minutes before eating. 60 tablet 2 dicyclomine (BENTYL) 10 mg capsule Take 1 capsule by mouth before meals and at bedtime. 120 capsule2 atorvastatin (LIPITOR) 40 mg tablet TAKE 1 TABLET BY MOUTH ONCE DAILY. 30 tablet 11 MULTIVITAMIN ORAL Take 1 tablet by mouth once daily. Insulin Worthington, Disposable, (NORBERTO PEN NEEDLE) 32 gauge x ndle 1 application three times daily. 100 Each 1 No current facility-administered medications for this visit. ALLERGIES No Known Allergies FAMILY HISTORY Problem Relation Age of Onset Dementia Mother Coronary Artery Disease Father Social History Tobacco Use Smoking status: Every Day Types: Cigarettes Smokeless tobacco: Never Tobacco comments: Pt smoked 1 pack daily for x 40 years, pt has cut back to 1 pack per week x 1 year Substance Use Topics Alcohol use: Yes Alcohol/week: 2.0 standard drinks of alcohol Types: 2 Cans of beer per week Drug use: Never Review of Systems: Negative except as noted in HPI reviewed 11/15/2023 Physical Exam: BP 141/105 Pulse 106 Temp (Src) 97.7 (Temporal) Ht 5' 10 (1.78m) Wt 132 lb (59.9kg) LsT033% BMI 18.94 kg/(m^2). General: Age-appropriate well developed. Appears thin. HEENT: Normocephalic, no sclera icterus, external ears normal, Chest: Clear bilaterally, no wheezes, not labored. Heart: RRR Abdomen: Soft, nontender, nondistended, bowel sounds present Extremities: No cyanosis, clubbing, gross deformities Neurological: No focal deficits. Skin: Warm and dry with no rashes or ulcerations. Hematologic: no petechiae. Psychiatric: Alert and oriented x3. Emotional well-being assessment was performed. Pt denies depression, distress, and or problems with coping or adjustment. Lab Results Component Value Date WBC 4.67 10/15/2023 HB 10.0 (L) 10/15/2023 MCV 118.7 (H) 10/15/2023 PLT 202 10/15/2023 Lab Results Component Value Date NA 142 10/15/2023 K 4.8 10/15/2023 CO2 28 10/15/2023 BUN 14 10/15/2023 CREAT 1.55 (H) 10/15/2023 TBILI <0.2 (L) 10/15/2023 TPROT 5.2 (L) 10/15/2023 ALB 2.4 (L) 10/15/2023 ALKPHOS 134 (H) 10/15/2023 ALT 26 10/15/2023 AST 64 (H) 10/15/2023 Assessment and Plan: Mr. Melendrez is a pleasant 63 year old gentleman presenting as a new anemia consult. Anemia - Reviewed with patient and family recent labs results. CBC is relatively stable. Discussed potential causes for anemia including chronic blood loss, malabsorption, kidney and liver dysfunction. - CKD, however this may also be exacerbated by infection. Not a candidate for epo at this time. - would ultimately recommend that he see GI to evaluate chronic blood loss and diarrhea. - pt reports several months of diarrhea, bloody, weight loss. - tested + for cdiff 10/14/2023, believes he completed abx however the diarrhea has continued. - has been referred to GI however has not been able to get to appt yet due to transportation issues. - pt reports hx of bleeding intestinal and stomach ulcers. - no scopes in the last 20 years. - follow up with PCP re: follow up for c diff - can pursue further work up of anemia following complete GI workup. - RTC with labs in 8 weeks. Vandana Edwards APRN.SPLUNK D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 I spent a total of 45 minutes on the date of the service which included preparing to see the patient, [id number] patient care, completing clinical documentation, counseling and educating the patient/family/caregiver, independently interpreting results (not separately reported), and communicating results to the patient/family/caregiver. Portions of this note including HPI, ROS, impression/plan may have been copied forward as to provide important historical information essential in contributing to medical decision making. Documentation has been reviewed and edited as necessary to support clinical decision making for today's visit and to reflect my own independent evaluation of this patient. [facility] Telephone encounter Note * Telephone Encounter - Suzi Haynes MA - 11/09/2023 1:54 PM EDT Patient informed of results and additional imaging ordered. Suzi Haynes MA [facility]10-01-2024 Miscellaneous Notes* Telephone Encounter - Suzi Haynes MA - 11/09/2023 1:54 PM EDT Patient informed of results and additional imaging ordered. Suzi Haynes MA * Telephone Encounter - Marianna Wagner APRN.CNP - 11/07/2023 7:[address] abd showed dilatation of the pancreatic duct possibly due to chronic pancreatitis.I placed an order for a CT for his pancreas. documented in [facility] Telephone encounter Note * Telephone Encounter - Suzi Haynes MA - 11/08/2023 9:46 AM EDT pharmacy electronically requesting refills as follows: Last seen 10/14/23 . Last refill 10/17/23 . Requested Prescriptions Pending Prescriptions Disp Refills levoFLOXacin (LEVAQUIN) 250 mg tablet [Pharmacy Med Name: LEVOFLOXACIN 250MG TABS] 7 tablet 0 Sig: TAKE ONE TABLET BY MOUTH EVERY DAY FOR 7 DAYS Please review and advise. Suzi Haynes MA [facility]09-30-2024 Miscellaneous Notes* Telephone Encounter - Suzi Haynes MA - 11/08/2023 9:46 AM EDT pharmacy electronically requesting refills as follows: Last seen 10/14/23 . Last refill 10/17/23 . Requested Prescriptions Pending Prescriptions Disp Refills levoFLOXacin (LEVAQUIN) 250 mg tablet [Pharmacy Med Name: LEVOFLOXACIN 250MG TABS] 7 tablet 0 Sig: TAKE ONE TABLET BY MOUTH EVERY DAY FOR 7 DAYS Please review and advise. Suzi Haynes MA documented in [facility]Dun[facility]09-29-2024 Telephone encounter Note * Telephone Encounter - Marianna Wagner APRN.CNP - 11/07/2023 7:[address] abd showed dilatation of the pancreatic duct possibly due to chronic pancreatitis.I placed an order for a CT for his pancreas. [facility]09-27[facility]24 NoteHNO ID: [id number] Author: YESSICA UMANA LPN Service: ? Author Type: LICENSED NURSE Type: Progress Notes Filed: 11/05/2023 13:46 Note Text: ED Follow Up: Patient discharged from [facility] ED on 10/30/2023. 1. How are you feeling since your ED visit? Left message for pt to call office. Have your symptoms improved or resolved? Left message for pt to call office. 2. Were you prescribed any medications while in the ED or advised to stop any medication? Left message for pt to call office. - If yes, were you able to fill your prescriptions? Left message for pt to call office. -if stopped medication, what was the medication? Left message for pt to call office. 3. Were you advised to schedule a follow up appointment with your provider? Left message for pt to call office. - If no, Do you feel like you need an appointment scheduled? Left message for pt to call office. - If yes, Do you need this scheduled now or has this already been scheduled? Left message for pt to call office. 4. Were you able to contact the office or electrical controls assembler provider prior to your ED visit? Left message for pt to call office. 5. Is there anything else I can do for you today? Left message for pt to call office.[facility]09-27-[facility] History of Present illness Narrative* Yessica Umana LPN - 11/05/2023 1:44 PM EDT ED Follow Up: Patient discharged from [facility] ED on 10/30/2023. 1. How are you feeling since your ED visit? Left message for pt to call office. Have your symptoms improved or resolved? Left message for pt to call office. 2. Were you prescribed any medications while in the ED or advised to stop any medication? Left message for pt to call office. - If yes, were you able to fill your prescriptions? Left message for pt to call office. -if stopped medication, what was the medication? Left message for pt to call office. 3. Were you advised to schedule a follow up appointment with your provider? Left message for pt to call office. - If no, Do you feel like you need an appointment scheduled? Left message for pt to call office. - If yes, Do you need this scheduled now or has this already been scheduled? Left message for pt tocall office. 4. Were you able to contact the office or electrical controls assembler provider prior to your ED visit? Left message forpt to call office. 5. Is there anything else I can do for you today? Left message for pt to call office. documented in this encounter[facility]09-[facility]-2024 NotePatient Outreach (AGINTMLJevon) ANALILIA MELENDREZ ([id number]) 1960 M Date Time Provider Department 11/05/23 YESSICA UMANA During your visit today, we recorded the following information about you: Yessica Umana LPN 11/05/2023 1:46 PM Signed ED Follow Up: Patient discharged from [facility] ED on 10/30/2023. 1. How are you feeling since your ED visit? Left message for pt to call office. Have your symptoms improved or resolved? Left message for pt to call office. 2. Were you prescribed any medications while in the ED or advised to stop any medication? Left message for pt to call office. - If yes, were you able to fill your prescriptions? Left message for pt to call office. -if stopped medication, what was the medication? Left message for pt to call office. 3. Were you advised to schedule a follow up appointment with your provider? Left message for pt to call office. - If no, Do you feel like you need an appointment scheduled? Left message for pt to call office. - If yes, Do you need this scheduled now or has this already been scheduled? Left message for pt to call office. 4. Were you able to contact the office or electrical controls assembler provider prior to your ED visit? Left message for pt to call office. 5. Is there anything else I can do for you today? Left message for pt to call office. Allergies As of Date: 11/05/2023 (No Known Allergies) Date Reviewed: 10/14/2023 Reviewed by: Marianna Wagner APRN.SPLUNK D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 - Fully Assessed Prescriptions as of 11/05/2023 - metFORMIN (GLUCOPHAGE) 500 mg tablet Take 1 tablet by mouth daily with breakfast. - Cholecalciferol, Vitamin D3, (VITAMIN D-3) 50 mcg (2,000 unit) cap Take 1 capsule by mouth once daily. - ferrous sulfate 325 mg (65 mg iron) tablet Take 1 tablet by mouth once daily. - Blood-Glucose Meter,Continuous (FREESTYLE MANGO 3 READER) misc Use to check blood sugar at least four (4) times daily. - Blood-Glucose Sensor (FREESTYLE MANGO 3 SENSOR) daniel Apply new sensor every fourteen (14) days to upper arm. - FARXIGA 10 mg tablet Take 1 tablet by mouth daily with breakfast. - insulin glargine 100 unit/mL (3 mL) Inject 10 Units subcutaneously once daily. - metoprolol tartrate, short acting, (LOPRESSOR) 50 mg tablet Take 1 tablet by mouth two times a day. - ramipril (ALTACE) 10 mg capsule 10 mg. - pantoprazole DR (PROTONIX) 40 mg tablet Take 1 tablet by mouth two times a day. 30 minutes before eating. - dicyclomine (BENTYL) 10 mg capsule Take 1 capsule by mouth before meals and at bedtime. - atorvastatin (LIPITOR) 40 mg tablet TAKE 1 TABLET BY MOUTH ONCE DAILY. - MULTIVITAMIN ORAL Take 1 tablet by mouth once daily. - Insulin Worthington, Disposable, (NORBERTO PEN NEEDLE) 32 gauge x 5/32 ndle 1 application three times daily. Problem List As Of Date 11/05/2023 Noted Resolved SUMMARY 03/09/2016 Acute thoracic aortic dissection (HCC) [I71.019]03/09/2016 Primary hypertension [I10] 03/09/2016 History of IVDU (intravenous drug user) [F19.90]03/09/2016 Smoking greater than 10 pack years [F17.210] 03/09/2016 History of depression [Z86.59] 03/09/2016 Type 2 diabetes mellitus with complication, wit*03/09/2016 Alcohol-induced chronic pancreatitis (HCC) [K86*03/09/2016 History of ruptured aneurysm of thoracic aorta *03/09/2016 03/10/2016 Acute headache [R51.9] 03/09/2016 History of alcohol abuse [F10.11] 03/09/2016 History of dissection of thoracic aorta [Z86.79]03/10/2016 Preop testing [Z01.818] 03/16/2016 03/20/2016 Cardiac insufficiency (HCC) [I50.9] 03/19/2016 03/26/2016 Postoperative hypotension [I95.81] 03/19/2016 03/21/2016 Pain, postoperative, acute [G89.18] 03/19/2016 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] 03/20/2016 03/26/2016 Acute respiratory failure with hypoxia (HCC) [J*03/21/2016 03/26/2016 Fluid overload [E87.70] 03/21/2016 03/22/2016 Hypoxemia [R09.02] 03/23/2016 03/26/2016 Discharge planning issues [Z75.8] 03/26/2016 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] Pacemaker [Z95.0] Adrenal nodule (HCC) [E27.9] 08/09/2023 Acute kidney failure, unspecified (HCC) [N17.9] 01/03/2017 Anemia in CKD (chronic kidney disease) [N18.9, *08/09/2023 Aortic aneurysm (HCC) [I71.9] 08/09/2023 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 Chronic pancreatitis (HCC) [K86.1] 08/09/2023 Calcium deficiency [E58] 08/09/2023 Cirrhosis of liver (HCC) [K74.60] 08/09/2023 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09-21-2024 Hospital Discharge instructions Patient Education 10/30/2023 18:21:40 Understanding Pancreatitis Understanding Pancreatitis If your pancreas suddenly becomes irritated or inflamed, you have acute pancreatitis. Acute pancreatitis is often very painful. Emergency medical treatment is usually needed. Chronic pancreatitis is a condition where your pancreas remains inflamed. It can lead to pain and other complications. Symptoms of acute pancreatitis Symptoms include the following: Severe pain in your upper belly radiating to your back Nausea and vomiting Belly swelling and tenderness Fever Rapid pulse Shallow, fast breathing Treating acute pancreatitis If you have acute pancreatitis, you may be in the hospital for a few days. For part of this time, you likely won t be allowed to eat or drink. This lets your pancreas rest and heal. If your pancreatitis is severe, you will not be able to eat and drink and you may receive nutrition and fluids through a feeding tube inserted into your belly. Medicines are given to help ease any pain. Causes of pancreatitis Gallstones are one of the most common causes of pancreatitis. These hard stones form in the gallbladder, an organ located near the pancreas. These two organs share a passage into the small intestine called the common bile duct. Fluid can't leave the pancreas, though, if gallstones block this duct. The fluid backs up and causes pancreatitis. Alcohol is also an extremely common cause of pancreatitis. Certain medicines, trauma, and infection can also cause pancreatitis. Problems with the structureof the pancreas may also be a cause. There are also genetic problems that can cause pancreatitis. If you have chronic pancreatitis If the pancreas stays inflamed for a long time, chronic pancreatitis may result. Common symptoms include diarrhea, weight loss, and belly pain. Possible complications of chronic pancreatitis include the following: Diabetes Malnutrition (not absorbing enough nutrients) Pancreatic cancer (rare) Chronic diarrhea Chronic pain Treatment for chronic pancreatitis includes the following: Medicines to help the pancreas work (enzymes) and to manage pain Dietary changes Stop smoking Treatment for gallstones Avoiding alcohol. It cannot be stressed enough how important it is to avoid alcohol and smoking to help manage this disease. [employer]. [address] [place] [address]. All rights reserved. This information is not intended as a substitute for professional medical care. Always follow yourhealthcare professional's instructions. 10/30/2023 18:21:19 Long-Term Complications of Diabetes Long-Term Complications of Diabetes Diabetes can cause health problems over time. These are called complications. They are more likely to happen if your blood sugar is often too high. Over time, high blood sugar can damage blood vessels in your body. It is important to keep your blood sugar in your target range. This can help preventor delay complications from diabetes. Possible complications Diabetes can cause: Eye problems, such as damage to the blood vessels in the eyes, pressure in the eye, and clouding ofthe eye s lens. In time, eye problems can lead to bleeding and blindness. Tooth and gum problems. These can cause loss of teeth and bone. Blood vessel disease, leading to circulation problems, heart attack, or stroke. Or you may need a limb removed because of poor blood flow to the skin. Problems with sexual function. Men may have erectile dysfunction. Women may have sexual discomfort. Kidney disease, leading to kidney failure. You may need dialysis or a kidney transplant. Nerve problems, causing pain or loss of feeling in your feet and other parts of your body. This maylead to loss of a limb. High blood pressure. This health problem puts strain on your heart and blood vessels. Serious infections. These can possibly lead to loss of toes, feet, or limbs. How to prevent complications You can prevent these serious problems by managing your blood sugar, blood pressure, and cholesterol. This can help you feel better and stay healthy. You can control diabetes by tracking your blood sugar. You can also eat healthy and exercise to prevent weight gain. If you smoke, stop all tobacco products. It will greatly improve your overall health. And take medicine if directed by your healthcare provider. [employer]. [address] [place] [address]. All rights reserved. This information is not intended as a substitute for professional medical care. Always follow yourhealthcare professional's instructions. Follow Up Care 10/30/2023 15:12:07 With:VANESSA GROSS MD Address: [address] [facility] [place] [address] [phone] When:3-5 days With:Go to emergency room if symptoms worsen Address:Unknown When:2-4 days With:MARIANNA WAGNER Address: [address] [place] [phone] When:2-4 days [facility] 09-21-2024 Note Discharge Instructions Thank you for allowing [facility] to assist you with your healthcare needs. The following is importantdischarge information regarding your hospital visit. Diagnosis from Today's Visit Abdominal pain Lightheaded What to Do Next Instructions from Your Care Team No qualifying data available. Post Acute Orders No qualifying data available. You Need to Schedule the Following Appointments Follow Up with VANESSA GROSS MD When:Within 3-5 days Where:[address] [facility] [place] [address] [phone] Follow Up with Go to emergency room if symptoms worsen When:Within 2-4 days Follow Up with MARIANNA WAGNER When:Within 2-4 days Where:[address] [place] [phone] Allergies NKA Medications Please ask your primary doctor or pharmacist before taking any other medication not listed, including over the counter drugs, herbal medications, vitamins and or supplements as they may interact withyour home medications. What How Much When Why Instructions Last Dose Unchanged amLODIPine (amLODIPine 5 mg oral tablet) 1 tab(s) by mouth Once a day Unchanged cholecalciferol (cholecalciferol 1250 mcg (50,000 intl units) oral capsule) 1 cap by mouth Every week Unchanged dapagliflozin (Farxiga 10 mg oral tablet) 1 tab(s) by mouth Once a day Unchanged DME (Blood Glucose Test Machine) See instructions Use as directed Brand type per insurance or patient preference Unchanged DME (Blood Glucose Test Strips) See instructions One Touch Ultra Blue Testi Strips 1 bottle of 100 Use 1 strip to test BS TID Unchanged DME (Blood Glucose Test Strips) See instructions 1 bottle of 100- PATIENT TESTS 2-3 TIMES PER DAY Unchanged DME (DME MISCellaneous) See instructions Libre2 reader. Use with sensor to check blood sugar. Dispense #1 reader, 0 refills Unchanged DME (DME MISCellaneous) See instructions Pen needles. Use with Lantus insulin pen for daily injection. dispense #1 box + 11 refills. Unchanged DME (DME MISCellaneous) See instructions Freestyle Mango 2 Sensor Unchanged DME (DME MISCellaneous) See instructions Libre2 sensors. Use to check blood sugar, replace every 14 days. Dispense #2 sensors Unchanged DME (DME MISCellaneous) See instructions Patient needs a refill on Freestyle Mango 2 sensors. Unchanged DME (Lancets) See instructions qs 1 month supply-PATIENT TESTS 2-3 TIMES PER DAY Unchanged DME (Pen needles 5 mm) See instructions DM type 2, goal HbA1c < 7.5% qs for 1 month supply Unchanged famotidine (famotidine 40 mg oral tablet) 1 tab(s) by mouth Daily at bedtime Unchanged insulin glargine (Lantus Solostar Pen 100 units/ mL 3 mL Pen) 10 unit(s) Subcutaneous Once a day Replaces Levemir Unchanged metFORMIN (MetFORMIN (Eqv-Fortamet) 500 mg oral tablet, EXTENDED RELEASE) 2 tab(s) by mouth Two (2) times a day Unchanged metoprolol (Metoprolol Succinate ER 50 mg oral TABLET extended release) 1 tab(s) by mouth Once a day Unchanged omeprazole (omeprazole 40 mg oral delayed release capsule) 1 cap by mouth Once a day Unchanged ramipril (ramipril 10 mg oral capsule) 1 cap by mouth Two (2) times a day Please take this list to your next doctor s visit. Bring all medications you take, including over the counter medications, herbals and other supplements with you to your doctor s visit. Patients and families are reminded to discard old lists and to update any records with all medication providers or retail pharmacies. Education Materials Understanding Pancreatitis If your pancreas suddenly becomes irritated or inflamed, you have acute pancreatitis. Acute pancreatitis is often very painful. Emergency medical treatment is usually needed. Chronic pancreatitis is a condition where your pancreas remains inflamed. It can lead to pain and other complications. Symptoms of acute pancreatitis Symptoms include the following: Severe pain in your upper belly radiating to your back Nausea and vomiting Belly swelling and tenderness Fever Rapid pulse Shallow, fast breathing Treating acute pancreatitis If you have acute pancreatitis, you may be in the hospital for a few days. For part of this time, you likely won t be allowed to eat or drink. This lets your pancreas rest and heal. If your pancreatitis is severe, you will not be able to eat and drink and you may receive nutrition and fluids through a feeding tube inserted into your belly. Medicines are given to help ease any pain. Causes of pancreatitis Gallstones are one of the most common causes of pancreatitis. These hard stones form in the gallbladder, an organ located near the pancreas. These two organs share a passage into the small intestine called the common bile duct. Fluid can't leave the pancreas, though, if gallstones block this duct. The fluid backs up and causes pancreatitis. Alcohol is also an extremely common cause of pancreatitis. Certain medicines, trauma, and infection can also cause pancreatitis. Problems with the structureof the pancreas may also be a cause. There are also genetic problems that can cause pancreatitis. If you have chronic pancreatitis If the pancreas stays inflamed for a long time, chronic pancreatitis may result. Common symptoms include diarrhea, weight loss, and belly pain. Possible complications of chronic pancreatitis include the following: Diabetes Malnutrition (not absorbing enough nutrients) Pancreatic cancer (rare) Chronic diarrhea Chronic pain Treatment for chronic pancreatitis includes the following: Medicines to help the pancreas work (enzymes) and to manage pain Dietary changes Stop smoking Treatment for gallstones Avoiding alcohol. It cannot be stressed enough how important it is to avoid alcohol and smoking to help manage this disease. 7966-4463 [employer]. [address] [place] [address]77. All rights reserved. This information is not intended as a substitute for professional medical care. Always follow yourhealthcare professional's instructions. Long-Term Complications of Diabetes Diabetes can cause health problems over time. These are called complications. They are more likely to happen if your blood sugar is often too high. Over time, high blood sugar can damage blood vessels in your body. It is important to keep your blood sugar in your target range. This can help preventor delay complications from diabetes. Possible complications Diabetes can cause: Eye problems, such as damage to the blood vessels in the eyes, pressure in the eye, and clouding ofthe eye s lens. In time, eye problems can lead to bleeding and blindness. Tooth and gum problems. These can cause loss of teeth and bone. Blood vessel disease, leading to circulation problems, heart attack, or stroke. Or you may need a limb removed because of poor blood flow to the skin. Problems with sexual function. Men may have erectile dysfunction. Women may have sexual discomfort. Kidney disease, leading to kidney failure. You may need dialysis or a kidney transplant. Nerve problems, causing pain or loss of feeling in your feet and other parts of your body. This maylead to loss of a limb. High blood pressure. This health problem puts strain on your heart and blood vessels. Serious infections. These can possibly lead to loss of toes, feet, or limbs. How to prevent complications You can prevent these serious problems by managing your blood sugar, blood pressure, and cholesterol. This can help you feel better and stay healthy. You can control diabetes by tracking your blood sugar. You can also eat healthy and exercise to prevent weight gain. If you smoke, stop all tobacco products. It will greatly improve your overall health. And take medicine if directed by your healthcare provider. 0009-1680 [employer]. [address] [place] [address]. All rights reserved. This information is not intended as a substitute for professional medical care. Always follow yourhealthcare professional's instructions. Additional Information VACCINATE! IT SAVES LIVES! Members of the community who have not yet received the COVID-19 vaccine and would like to receive it can visit one of [facility] vaccine clinics. There are many vaccine clinic locations within the [facility]. For locations and available times, please visit www.[email or web address].[place].gov/. It is important to note that some COVID mobile vaccine clinics are held outdoors and may be canceled in rainy or stormy conditions. To learn more about pediatric vaccinations (ages 5-11), we invite you to visit the [facility] webpage. [email or web address].[email or web address]/[email or web address]-Rszuv-[email or web address] stions.htmlTo learn more about the COVID-19 vaccine, we invite you to visit the CDC website for a list of frequently asked questions. https://www.cdc.gov/coronavirus/2019-ncov/vaccines/faq.html [facility] [employer] Patient Portal Access Instructions: Stay connected with your healthcare team and access your personal medical information anytime with the [facility] Patient Portal. If you would like a full copy of your medical records please contact the [facility] Medical Records Department Wednesday through Wednesday between 8a.m. and 4:30p.m. Please follow the directions below to access the portal: 1.Access the email account you provided upon [facility].2.Look for an invitation email from [facility].3.Open the email and access the invitation link: [facility].Fill in the required smith to create your account. Sign into [email or web address] with your username and password that you created in the above steps to stay up to date. You can then view a summary of results, a summary of your visits, and the ability to download your summaries to your computer or send the information securely to a physician. Remember that your healthcare information is confidential, so carefully consider who you will allow to register on the [facility] Patient Portal for access to your information. You can also access the [employer] Patient Portal on the [employer] logan. Simply click on Health Records under [employer] and then click on the [facility] logo. HOW TO SAFELY DISPOSE OF PRESCRIPTION MEDICATIONS Please use one of the following methods to safely dispose of your unused medications. 1.Use a drug disposal kit: the drug disposal pouch allows you to safely discard your old and unuseddrugs. Ask your nurse to give you one when you are discharged.2.Visit a local take-back location: Many local pharmacies and police departments have programs that collect old and unwanted prescriptiondrugs. Call your local pharmacy or go to http://bit.Social DJ/0S5Tk7e to find one close to you.3.Make use of household items: Use cat litter or old coffee grounds to dispose medications if other options arenot available. Mix your drugs with these household products, seal them in an airtight container andthrow it into the garbage. Call [facility]: [phone] to be sure your drugs can be disposed of in this way. Some medicines may require a different approach.4.Never flush your medications down the toilet. IF YOU HAVE BEEN PRESCRIBED AN OPIOIDS FOR PAIN If you have been prescribed an opioid (such as hydrocodone, oxycodone or morphine), it is critical to understand the possible side effects and risks of opioid pain medications. Even when taken as directed, opioids can have several side effects including: Tolerance, meaning you might need to take more of a medication for the same pain relief. Nausea, vomiting and/or constipation. Sleepiness, dizziness, dry mouth, confusion, depression or itching. Physical dependence, meaning you have withdrawal symptoms when a medication is stopped ? this can develop within a few days. KNOW YOUR RESPONSIBILITIES It is important to know exactly how much and how often to take the opioid pain medications you are prescribed. Never take opioids in higher amounts or more often than prescribed. Do not combine opioids with alcohol or other drugs that cause drowsiness, such as benzodiazepines, also known as benzos,including diazepam and alprazolam, muscle relaxants or sleep aids. Never sell or share prescriptionopioids. This is illegal. Store opioids in a secure place and out of reach of others (including children, family, friends and visitors). The last page(s) of this document has been signed and retained as a CHART COPY Signatures Patient Education Materials Understanding Pancreatitis Long-Term Complications of Diabetes Medication Leaflets My discharge plan and instructions have been reviewed and explained to me and I,ANALILIA MELENDREZ understand my current condition and have read and understand these discharge instructions. I have received a written copy of the plan/instructions. If I have questions, I am aware that I should contact my doctor. 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 Sternotomy fixation wires are noted. Status post valve replacement. The cardiomediastinal silhouette appears normal. There is no focal consolidation. There is no pulmonary edema. There is no evidence of pleural effusion. There is no evidence of pneumothorax. No fracture is identified. IMPRESSION: No acute abnormality is identified. Interpreted by: Narendra Gama Preliminary Report By: Narendra Gama Electronically signed By Narendra Gama Dictated Date: 10/30/2023 5:22:48 PM Prelim Date: 10/30/2023 5:23:53 PM Sign Date: 10/30/2023 5:23:53 PM Ordering Provider: [facility]09-21-2024 Note ORIGINAL EXAMINATION: CT OF THE ABDOMEN AND PELVIS WITH CONTRAST10/30/2023 5:09 pm TECHNIQUE: CT of the abdomen and pelvis was performed with the administration of intravenous contrast. Multiplanar reformatted images are provided for review. Automated exposure control, iterative reconstruction, and/or weight based adjustment of the mA/kV was utilized to reduce the radiation dose to as low as reasonably achievable. COMPARISON: CT abdomen pelvis 03/15/2023 HISTORY: ORDERING SYSTEM PROVIDED HISTORY: Reason for Exam: upper abdominal pain hx pancreatitis FINDINGS: The included lung bases are clear. There is no visible pleural or pericardial effusion. The heart is normal in size. Small subcentimeter hypodensities in both lobes of the liver are unchanged, likely small cysts. Diffuse hepatic steatosis with focal fatty sparing within Charmaine falciform ligament region. Atrophic pancreas with dilated main pancreatic duct with calcifications/calculi suggestive of chronic calcific pancreatitis. The spleen, adrenal glands, are within normal limits. The gallbladder is normal. The kidneys enhance symmetrically. No bilateral hydronephrosis. The large and small bowel demonstrate no obstruction. The appendix is normal. No free intraperitoneal fluid or gas is identified. The aorta is normal in caliber. There is moderate atherosclerosis of the larger arteries. This causes severe stenosis of the right common iliac artery and moderate stenosis of the left common iliac artery. There is no lymphadenopathy. The prostate is normal in size. No calculi seen in the urinary bladder. The abdominal wall is unremarkable. There is no acute fracture or aggressive osseous lesion. IMPRESSION: No acute abdominopelvic abnormality. Diffuse hepatic steatosis. Chronic calcific pancreatitis. Unchanged severe stenosis of the left common iliac artery and moderate stenosis of the right common iliac artery. I have personally reviewed the images of this examination and have edited the resident's findings and interpretation. Interpreted by: Narendra Gama Preliminary Report By: Wilman Ignacio Electronically signed By Narendra Gama Dictated Date: 10/30/2023 5:16:16 PM Prelim Date: 10/30/2023 5:25:34 PM Sign Date: 10/30/2023 5:39:58 PM Ordering Provider: [facility]09-21-2024 Note ORIGINAL EXAMINATION: CT OF THE HEAD WITHOUT CONTRAST 10/30/2023 5:09 pm TECHNIQUE: CT of the head was performed without the administration of intravenous contrast. Automated exposure control, iterative reconstruction, and/or weight based adjustment of the mA/kV was utilized to reduce the radiation dose to as low as reasonably achievable. COMPARISON: CT head March 15, 2023 HISTORY: ORDERING SYSTEM PROVIDED HISTORY: Reason for Exam: lightheadedness, dizzy FINDINGS: BRAIN/VENTRICLES: There is no acute intracranial hemorrhage, mass effect or midline shift. No abnormal extra-axial fluid collection. Old bilateral supratentorial insults. The davila-white differentiation is maintained without evidence of an acute infarct. There is no evidence of hydrocephalus. There are nonspecific hypoattenuating foci in the subcortical and periventricular white matter that most likely represent chronic microangiopathic ischemic changes in a patient of this age. Parenchymal volume loss. ORBITS: The visualized portion of the orbits demonstrate no acute abnormality. SINUSES: Nonspecific fluid in the mastoid air cells and middle ear cavities. Paranasal sinuses are predominantly clear. SOFT TISSUES/SKULL: No acute abnormality of the visualized skull. IMPRESSION: No acute intracranial abnormality. Nonspecific fluid in the mastoid air cells and middle ear cavities. Correlate with otological exam. Interpreted by: Aldo Torres Preliminary Report By: Aldo Torres Electronically signed By Aldo Torres Dictated Date: 10/30/2023 5:14:26 PM Prelim Date: 10/30/2023 5:19:12 PM Sign Date: 10/30/2023 5:19:12 PM [facility] Note Sinus rhythm Probable left atrial enlargement Right bundle branch block Electronic Signature: ANN-MARIE DILLON DO 10/30/2023 15:35:05[facility] 09-11-2024 Telephone encounter Note* Telephone Encounter - Emani Torres - 10/20/2023 8:39 AM EDT Spoke with patient and scheduled. Emani Torres [facility]09-11-2024 Miscellaneous Notes* Telephone Encounter - Emani Torres - 10/20/2023 8:39 AM EDT Spoke with patient and scheduled. Emani Torres * Telephone Encounter - Sabra Rios LPN - 10/19/2023 12:10 PM EDT First available with Vandana Rios LPN * Telephone Encounter - Gracie Tinsley - 10/19/2023 11:25 AM EDT Patient is being referred to Dr Silverio. This patient is not appropriate to offer our virtual anemia clinic. DX: Anemia Insurance: [place] Medicaid Referred by: Marianna Wagner APRN.SPLUNK D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 Please review and advise [facility] Telephone encounter Note * Telephone Encounter - Sabra Rios LPN - 10/19/2023 12:10 PM EDT First available with Vandana Rios LPN [facility]09-10-2024 Telephone encounter Note* Telephone Encounter - Gracie Tinsley - 10/19/2023 11:25 AM EDT Patient is being referred to Dr Silverio. This patient is not appropriate to offer our virtual anemia clinic. DX: Anemia Insurance: [place] Medicaid Referred by: Marianna Wagner APRN.CNP Please review and advise [facility]09-09-2024 Telephone encounter Note* Telephone Encounter - Suzi Haynes MA - 10/18/2023 2:45 PM EDT Patient informed of all results, recommendations, appointment information and scripts sent in. Patient states he is going to have to move one of his appointments either the GI or the CT. Per conversation with Marianna Wagner CNP advised patient not to change GI appointment, left message for [facility] radiology to move patient's CT appointment. Suzi Haynes MA [facility]09-09-2024 Miscellaneous Notes* Telephone Encounter - Suzi Haynes MA - 10/18/2023 2:45 PM EDT Patient informed of all results, recommendations, appointment information and scripts sent in. Patient states he is going to have to move one of his appointments either the GI or the CT. Per conversation with Marianna Wagner CNP advised patient not to change GI appointment, left message for [facility] radiology to move patient's CT appointment. Suzi Haynes MA * Telephone Encounter - Marianna Wagner APRN.CNP - 10/17/2023 2:16 PM EDT Stool positive for Cdiff- will treat with Vancomycin 125 mg 4 times a day for 10 days. He must complete the entire treatment. Urine was also positive for E.coli. He will need another antibiotic to cover this bacteria. Rx for Levaquin 250 mg daily for 7 days sent in. His iron studies are also abnormal. His is anemic and I'm concerned there may be an underlying problem with his GI system. He needs to get into GI chau. I am also referring him to hematology. Referral to Dr. Silverio in [place]. documented in [facility] Telephone encounter Note * Telephone Encounter - Marianna Wagner APRN.CNP - 10/17/2023 2:16 PM EDT Stool positive for Cdiff- will treat with Vancomycin 125 mg 4 times a day for 10 days. He must complete the entire treatment. Urine was also positive for E.coli. He will need another antibiotic to cover this bacteria. Rx for Levaquin 250 mg daily for 7 days sent in. His iron studies are also abnormal. His is anemic and I'm concerned there may be an underlying problem with his GI system. He needs to get into GI chau. I am also referring him to hematology. Referral to Dr. Silverio in [place]. [facility]09-05-2024 Instructions* Patient Instructions* Marianna Wagner APRN.CNP - 10/14/2023 11:17 AM EDT Schedule with GI Get labs done Start iron replacement- take with vitamin C (OJ) Check if you are taking vitamin D Make sure you are taking Protonix/pantoprazole [facility] [address] [place] [address] Appointment: [phone] Desk: [phone] What protein supplements can I buy at the grocery store? * Ensure Plus (13 grams of protein per bpttle) * Boost High Protein (15 grams of protein per bottle) * [place] Instant Breakfast packet with 8oz gkass of milk (13 grams of protein) Beneprotein (6 grams of protein 1 pkg.) can be mixed with 2-4 oz. of any liquid Shirland s Shakes (10 grams of protein per bottle) Milkshake Chugs (14 grams of protein per bottle) [employer] Perfectly Protein (10 grams of protein per 8oz) [place] Vanilla Protein Monster (33 grams of protein per bottle) Muscle Milk RTD-ready to drink (25 grams of protein per bottle & lactose & gluten free) Pure Protein shakes RTD-ready to drink (15 or 23 grams/protein per bollte) Powdered Egg whites (10 grams protein/2 Tablespoons) Fortified milk (1 cup mill plus 4 Tbsp. non-fat milk = 14 grams of protein) *If you are interested in lower sugar or diabetic friendly products please ask your dietitian. FYI: Citizen Of [place] yogurt has more protein than regular yogurt [employer] is in organic section of your grocery stores [employer] Instant Breakfast is in the breakfast cereal aisle Milkshake Chugs are in the milk aisle [employer]a Protein Monster is in the organic section of the grocery store Some suggestions to make protein supplements easier to drink: Drink protein supplements cold Drink in a cup with a lid, like a travel mug (no straw) to decrease the smell documented in this encounterDunlap [facility]09-05-2024 NoteHNO ID: [id number] Author: MARIANNA WAGNER APRN.STEPHANIE Service: ? Author Type: Nurse Practitioner Type: Progress Notes Filed: 10/19/2023 13:25 Note Text: CHIEF COMPLAINT: Analilia Melendrez is a 63 year old male who presents for month f/u (Abdomen is still bothering and his bowel movements). I reviewed past medical, surgical, social, and family histories today and updated chart. Allergies, chronic medications, and supplements were also reviewed. His last appointment was on 08/09/23 and reported diarrhea for at least 4 weeks prior. Stool studies were ordered but he never completed them. He was referred to GI and had an appointment on 09/24/23 but it appears that he cancelled the appointment (he doesn't recall this). He called the nurse triage line to report he was having bloody diarrhea and he was contacted by this office to make an appointment but he did not come in until today. He continues to have diarrhea. He has seen blood as well. He states he has a decreased appetite and is not eating much (crackers, potatoes) which is contributing to his weight loss (has lost about 30 pounds since June). His daughter did get him some Ensure to drink but he does not have anymore. He has had generalized abdominal pain and nausea. He denies any fevers or vomiting. His blood sugars have been up and down. He had a BS of 50 once and felt symptomatic. His BS has been as high as 300. He reports compliance with Farxiga, Metformin, and his daily insulin. Stopped drinking beer a week ago States he was having 1 beer every other day previously He continues to have pain with urination. He was treated for an UTI in August. + for E.coli. OV 08/09/23: Analilia Melendrez is a 63 year old male presenting today as a new patient to establish care. I reviewed past medical, surgical, social, and family histories today and updated chart. Allergies, chronic medications, and supplements were also reviewed. PMH of DM type 2 on insulin, Having chronic diarrhea for the last 2 months. Can go up to 6-8 x a day. The color is orange. No blood that he can see. Having upper abdominal pain. Hx of pancreatitis. He is having upper abdominal pain. He is taking a PPI. Upper GI in the past. Last colonoscopy was about 30 years ago. Has been losing weight since then. Has lost about 25 lbs. Was 165 lbs prior to the residential in June. Has frequent nausea and vomiting. Has a low appetite Unsure of what his last A1C was BS are either really high or low. Has a freestyle mango. Taking Lantus insulin. No meal time insulin. Taking Farxiga and Metformin (has been on that for awhile). Was supposed to follow with a ultrasound sonographer Hx of aortic valve replacement Had a congenital aortic aneurysm Has a pacemaker Has had heart attack He is not following with any specialists right now. States he either had a seizure or stroke and was placed in the hospital and then went to a residential for 5 weeks. 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 Started smoking again, 5-10 cigarettes Has quit in the past, up to a year Drinks alcohol 1 beer every other Used to drink vodka every day, approximately 3 years ago Was in rehab before No marijuana or illicit drugs. 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 Son overdosed and 8 years ago. PAST MEDICAL HISTORY No date: Anxiety No date: Aortic aneurysm ([facility]) Comment: S/P Repair No date: Aortic aneurysm ([facility]) No date: Aortic valve disorder Comment: S/P Replacement No date: CAD (coronary artery disease) Comment: nonobstructive No date: Coronary artery disease No date: Depression No date: Diabetes mellitus, type II ([facility]) Comment: Insulin dependent No date: Hx of ascending aorta repair No date: Hyperlipidemia No date: Hypertension No date: Non-ST elevation [place] (NSTEMI) ([facility]) Comment: 06/24 No date: NSTEMI (non-ST elevated myocardial infarction) ([facility]) No date: Pacemaker No date: Pacemaker No date: Paroxysmal atrial fibrillation ([facility]) No date: RBBB (right bundle branch block) No date: S/P aortic valve replacement Comment: 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[facility]) No date: Tobacco abuse Comment: chronic No date: Tobacco user No date: Type 2 diabetes mellitus ([facility]) PAST SURGICAL HISTORY No date: ABD AORTIC ANEURYSM REPAIR No date: ASCENDING AORTA GRAFT W/AORTIC ROOT 2017: CORONARY ARTERY BYPASS GRAFT HX Comment: 200506/24/2016: HEART CATHETERIZATION 2017: HEART VALVE REPLACEMENT Comment: Aortic x2 ;2014 No date: HERNIA REPAIR HX 06/25/2016: PACEMAKER No date: REPLACEMENT AORTIC VALVE W BYPASS Social History Tobacco Use Smoking status: Every Day Current packs/day: 0.50 Average packs/day: 0.5 packs/day for 0.7 years (0.3 ttl pk-yrs) Types: Cigarettes Start date: 2023 Last attempt to quit: 03/09/2016 Smokeless toba (more content not included)...[facility] 10-14-2023 History of Present illness Narrative* Marianna Wagner APRN.SPLUNK D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 - 10/14/2023 11:09 AM EDT CHIEF COMPLAINT: Analilia Melendrez is a 63 year old male who presents for month f/u (Abdomen is still bothering and his bowel movements). I reviewed past medical, surgical, social, and family histories today and updated chart. Allergies, chronic medications, and supplements were also reviewed. His last appointment was on 08/09/23 and reported diarrhea for at least 4 weeks prior. Stool studies were ordered but he never completed them. He was referred to GI and had an appointment on 09/24/23 but it appears that he cancelled the appointment (he doesn't recall this). He called the nurse triage line to report he was having bloody diarrhea and he was contacted by this office to make an appointment but he did not come in until today. He continues to have diarrhea. He has seen blood as well. Hestates he has a decreased appetite and is not eating much (crackers, potatoes) which is contributing to his weight loss (has lost about 30 pounds since June). His daughter did get him some Ensure to drink but he does not have anymore. He has had generalized abdominal pain and nausea. He denies any fevers or vomiting. His blood sugars have been up and down. He had a BS of 50 once and felt symptomatic. His BS has been as high as 300. He reports compliance with Farxiga, Metformin, and his daily insulin. Stopped drinking beer a week ago States he was having 1 beer every other day previously He continues to have pain with urination. He was treated for an UTI in August. + for E.coli. OV 08/09/23: Analilia Melendrez is a 63 year old male presenting today as a new patient to establish care. I reviewed past medical, surgical, social, and family histories today and updated chart. Allergies, chronic medications, and supplements were also reviewed. PMH of DM type 2 on insulin, Having chronic diarrhea for the last 2 months. Can go up to 6-8 x a day. The color is orange. No blood that he can see. Having upper abdominal pain. Hx of pancreatitis. He is having upper abdominal pain. He is taking a PPI. Upper GI in the past. Last colonoscopy was about 30 years ago. Has been losing weight since then. Has lost about 25 lbs. Was 165 lbs prior to the residential in June. Has frequent nausea and vomiting. Has a low appetite Unsure of what his last A1C was BS are either really high or low. Has a freestyle mango. Taking Lantus insulin. No meal time insulin. Taking Farxiga and Metformin (has been on that for awhile). Was supposed to follow with a ultrasound sonographer Hx of aortic valve replacement Had a congenital aortic aneurysm Has a pacemaker Has had heart attack He is not following with any specialists right now. States he either had a seizure or stroke and was placed in the hospital and then went to a residential for 5 weeks. 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 Started smoking again, 5-10 cigarettes Has quit in the past, up to a year Drinks alcohol 1 beer every other Used to drink vodka every day, approximately 3 years ago Was in rehab before No marijuana or illicit drugs. 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 Son overdosed and 8 years ago. PAST MEDICAL HISTORY No date: Anxiety No date: Aortic aneurysm ([facility]) Comment: S/P Repair No date: Aortic aneurysm ([facility]) No date: Aortic valve disorder Comment: S/P Replacement No date: CAD (coronary artery disease) Comment: nonobstructive No date: Coronary artery disease No date: Depression No date: Diabetes mellitus, type II ([facility]) Comment: Insulin dependent No date: Hx of ascending aorta repair No date: Hyperlipidemia No date: Hypertension No date: Non-ST elevation [place] (NSTEMI) ([facility]) Comment: 06/24 No date: NSTEMI (non-ST elevated myocardial infarction) ([facility]) No date: Pacemaker No date: Pacemaker No date: Paroxysmal atrial fibrillation ([facility]) No date: RBBB (right bundle branch block) No date: S/P aortic valve replacement Comment: 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[facility]) No date: Tobacco abuse Comment: chronic No date: Tobacco user No date: Type 2 diabetes mellitus ([facility]) PAST SURGICAL HISTORY No date: ABD AORTIC ANEURYSM REPAIR No date: ASCENDING AORTA GRAFT W/AORTIC ROOT 2017: CORONARY ARTERY BYPASS GRAFT HX Comment: 200506/24/2016: HEART CATHETERIZATION 2017: HEART VALVE REPLACEMENT Comment: Aortic x2 ;2015 No date: HERNIA REPAIR HX 06/25/2016: PACEMAKER No date: REPLACEMENT AORTIC VALVE W BYPASS Social History Tobacco Use Smoking status: Every Day Current packs/day: 0.50 Average packs/day: 0.5 packs/day for 0.7 years (0.3 ttl pk-yrs) Types: Cigarettes Start date: 2023 Last attempt to quit: 03/09/2016 Smokeless tobacco: Never Substance Use Topics Alcohol use: Yes Comment: occ. Drug use: Never ALLERGIES No Known Allergies Family History Problem Relation Age of Onset Coronary Artery Disease Father Current Outpatient Medications Medication Sig Dispense Refill Blood-Glucose Meter,Continuous (FREESTYLE MANGO 3 READER) [facility] Use to check blood sugar at least four (4) times daily. 1 Each 0 Blood-Glucose Sensor (FREESTYLE MANGO 3 SENSOR) daniel Apply new sensor every fourteen (14) days to upper arm. 6 Each 4 Cholecalciferol, Vitamin D3, (VITAMIN D-3) 50 mcg (2,000 unit) cap Take 1 capsule by mouth once daily. 90 capsule 1 FARXIGA 10 mg tablet Take 1 tablet by mouth daily with breakfast. insulin glargine 100 unit/mL (3 mL) Inject 10 Units subcutaneously once daily. 1 Each 0 metoprolol tartrate, short acting, (LOPRESSOR) 50 mg tablet Take 1 tablet by mouth two times a day.60 tablet 2 ramipril (ALTACE) 10 mg capsule [address] (PROTONIX) 40 mg tablet Take 1 tablet by mouth two times a day. 30 minutes before eating. 60 tablet 2 dicyclomine (BENTYL) 10 mg capsule Take 1 capsule by mouth before meals and at bedtime. 120 capsule2 atorvastatin (LIPITOR) 40 mg tablet TAKE 1 TABLET BY MOUTH ONCE DAILY. 30 tablet 11 metFORMIN (GLUCOPHAGE) 500 mg tablet Take 500 mg by mouth twice daily with meals. MULTIVITAMIN ORAL Take 1 tablet by mouth once daily. Insulin Wor[place], Disposable, (NORBERTO PEN NEEDLE) 32 gauge x 5/32 ndle 1 application three times daily. 100 Each 1 No current facility-administered medications for this visit. Review of Systems Constitutional: Positive for appetite change, fatigue and unexpected weight change. Negative for chills, diaphoresis and fever. HENT: Negative. Eyes: Negative for visual disturbance. Respiratory: Positive for shortness of breath. Negative for cough, chest tightness and wheezing. Cardiovascular: Positive for palpitations (on occasion). Negative for chest pain and leg swelling. Gastrointestinal: Positive for abdominal pain, blood in stool, diarrhea, nausea and vomiting. Negative for abdominal distention, constipation and rectal pain. Endocrine: Negative. Genitourinary: Positive for dysuria. Negative for frequency, hematuria, testicular pain and urgency. Musculoskeletal: Negative for arthralgias, back pain, gait problem, joint swelling, myalgias, neck pain and neck stiffness. Skin: Negative. Allergic/Immunologic: Negative. Neurological: Positive for dizziness, weakness, light-headedness (with position) and headaches. Negative for tremors and syncope. Hematological: Bruises/bleeds easily. Psychiatric/Behavioral: Negative for dysphoric mood. The patient is not nervous/anxious. BP 122/70 Pulse 60 Temp 97.6 Resp 18 Ht 5' 11 (1.80m) Wt 135 lb (61.2kg) SpO2 100% BMI 18.84 kg/(m^2). Physical Exam Vitals and nursing note reviewed. Constitutional: Appearance: He is cachectic. HENT: Mouth/Throat: Mouth: Mucous membranes are moist. Pharynx: Oropharynx is clear. Eyes: Pupils: Pupils are equal, round, and reactive to light. Cardiovascular: Rate and Rhythm: Normal rate and regular rhythm. Heart sounds: S1 normal and S2 normal. Murmur heard. Systolic murmur is present with a grade of 1/6. Pulmonary: Breath sounds: Normal breath sounds. Abdominal: General: Bowel sounds are normal. There is no distension. Palpations: Abdomen is soft. Tenderness: There is generalized abdominal tenderness. Hernia: No hernia is present. Musculoskeletal: Cervical back: Neck supple. Lymphadenopathy: Cervical: No cervical adenopathy. Upper Body: Right upper body: No supraclavicular adenopathy. Left upper body: No supraclavicular adenopathy. Skin: General: Skin is warm and dry. Coloration: Skin is pale. Neurological: Mental Status: He is alert and oriented to person, place, and time. Cranial Nerves: Cranial nerves 2-12 are intact. Psychiatric: Mood and Affect: Mood normal. Behavior: Behavior is cooperative. Cognition and Memory: Cognition normal. No visits with results within 1 Day(s) from this visit. Latest known visit with results is: Appointment on 09/25/2023 Component Date Value Ref Range Status WBC 09/25/2023 4.77 3.70 - 11.00 k/uL Final RBC 09/25/2023 2.60 (L) 4.20 - 6.00 m/uL Final Hemoglobin 09/25/2023 10.1 (L) 13.0 - 17.0 g/dL Final Hematocrit 09/25/2023 31.0 (L) 39.0 - 51.0 % Final MCV 09/25/2023 119.2 (H) 80.0 - 100.0 fL Final MCH 09/25/2023 38.8 (H) 26.0 - 34.0 pg Final MCHC 09/25/2023 32.6 30.5 - 36.0 g/dL Final RDW-CV 09/25/2023 14.3 11.5 - 15.0 % Final Platelet Count 09/25/2023 189 150 - 400 k/uL Final MPV 09/25/2023 12.1 9.0 - 12.7 fL Final Neutrophils % 09/25/2023 54.5 % Final Abs Neut 09/25/2023 2.60 1.45 - 7.50 k/uL Final Lymphocytes % 09/25/2023 31.4 % Final Abs Lymph 09/25/2023 1.50 1.00 - 4.00 k/uL Final Monocytes % 09/25/2023 10.1 % Final Abs Erath 09/25/2023 0.48 <0.87 k/uL Final Eosinophils % 09/25/2023 1.9 % Final Abs Eosin 09/25/2023 0.09 <0.46 k/uL Final Basophils % 09/25/2023 1.7 % Final Abs Baso 09/25/2023 0.08 <0.11 k/uL Final Immature Granulocytes % 09/25/2023 0.4 % Final Abs Immature Gran 09/25/2023 <0.03 <0.10 k/uL Final NRBC 09/25/2023 0.0 /100 WBC Final Absolute nRBC 09/25/2023 <0.01 <0.01 k/uL Final Platelet Estimate 09/25/2023 Adequate Final Red Cell Morph 09/25/2023 Reviewed: see results of individual morphologies Final Polychromasia 09/25/2023 Slight Final Ovalocytes 09/25/2023 Few Final RBC Fragments 09/25/2023 Few (A) None Seen Final Diff Type 09/25/2023 Auto Final Protein, Total 09/25/2023 6.1 (L) 6.3 - 8.0 g/dL Final Albumin 09/25/2023 2.5 (L) 3.9 - 4.9 g/dL Final Calcium, Total 09/25/2023 8.5 8.5 - 10.2 mg/dL Final Bilirubin, Total 09/25/2023 0.3 0.2 - 1.3 mg/dL Final Alkaline Phosphatase 09/25/2023 130 (H) 38 - 113 U/L Final AST 09/25/2023 80 (H) 14 - 40 U/L Final ALT 09/25/2023 31 10 - 54 U/L Final Glucose 09/25/2023 99 74 - 99 mg/dL Final The [place] [employer] (ADA) provides guidance for cutoff values for fasting glucose andrandom glucose. The ADA defines fasting as no caloric intake for at least 8 hours. Fasting plasma glucose results between 100 to 125 [...] Standards of Medical Care in Diabetes 2016, [place] [employer]. Diabetes Care. 2016.39(Suppl 1). BUN 09/25/2023 13 9 - 24 mg/dL Final Creatinine 09/25/2023 1.06 0.73 - 1.22 mg/dL Final Sodium 09/25/2023 139 136 - 144 mmol/L Final Potassium 09/25/2023 4.0 3.7 - 5.1 mmol/L Final Chloride 09/25/2023 111 (H) 98 - 107 mmol/L Final CO2 09/25/2023 17 (L) 22 - 30 mmol/L Final Anion Gap 09/25/2023 11 8 - 15 mmol/L Final Estimated Glomerular Filtration Ra* 09/25/2023 80 >=60 mL/min/1.73m Final Estimated Glomerular Filtration Rate (eGFR) is calculated using the 2020 CKD-EPI creatinine equation. This equation utilizes serum creatinine, sex, and age as parameters. The creatinine assay has traceable calibration to isotope dilution- mass spectrometry. Refer to KDIGO guidelines for clinical interpretation. In patients with unstable renal function, e.g. those with acute kidney injury, the eGFRmay not accurately reflect actual GFR. ASSESSMENT/PLAN: 1. Generalized abdominal pain - ICD9: 789.07, ICD10: R10.84 (primary diagnosis) - Work up with CT Abdomen/Pelvis - He needs an appointment with GI chau. Concern for underlying neoplasm due to persistent bloody diarrhea, weight loss, and abdominal pain. Needs colonoscopy and EGD. - CT ABD/PEL WO IVCON 2. Diarrhea of presumed infectious origin - ICD9: 009.3, ICD10: R19.7 - He submitted stool studies this morning - CT ABD/PEL WO IVCON 3. Weight loss - ICD9: 783.21, ICD10: R63.4 - Has lost about 30 pounds since June - CT ABD/PEL WO IVCON 4. Anemia, unspecified type - ICD9: 285.9, ICD10: D64.9 - Hgb 10.1, currently having bloody diarrhea and hx of CKD - Start on iron replacement daily - FERROUS SULFATE 325 MG (65 MG IRON) TABLET 5. Primary hypertension - ICD9: 401.9, ICD10: I10 - Controlled - Continue current medications - Recommend home blood pressure monitoring, to bring results to next visit - Encouraged sodium restriction, DASH or Mediterranean diet - Smoking cessation encouraged; discussed risks to health and quitting strategies. Patient is not ready to quit 6. History of alcohol abuse - ICD9: 305.03, ICD10: F10.11 - He states he stopped drinking 1 week ago 7. Alcohol-induced chronic pancreatitis (HCC) - ICD9: 577.1, ICD10: K86.0 - CT ABD/PEL WO IVCON 8. Dysuria - ICD9: 788.1, ICD10: R30.0 recurrent Unable to submit sample in office today - URINALYSIS WITH MICROSCOPIC, REFLEX CULTURE 9. 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) - ICD9: 250.40, 585.3, ICD10: E11.22, N18.30 - Counseled on avoiding NSAIDs, adequate hydration - Counseled on low sodium diet - ACEi/ARB prescribed: Yes - SGLT2i prescribed: KRISTARITA Tab - ALBUMIN/CREATININE RATIO, URINE 11. Elevated liver enzymes - ICD9: 790.5, ICD10: R74.8 12. Vitamin D deficiency - ICD9: 268.9, ICD10: E55.9 - CHOLECALCIFEROL (VITAMIN D3) 50 MCG (2,000 UNIT) CAPSULE 13. Cigarette smoker - ICD9: 305.1, ICD10: F17.210 - Cessation encouraged. - Physiologic and physical aspects of tobacco addiction as well as strategies for quitting were discussed. - Counseling was given focusing on the harmful effects of this addiction especially given the patient's medical condition(s) which will be worsened because of the chemicals in tobacco. New medication(s) prescribed today: Yes: Ferrous sulfate. Discussed new medication dosage, usage, goals of therapy, and side effects. Patient has been apprised of any potential drug interactions to be aware of. Patient expresses understanding. Counseling completed in adopting health behaviors such as avoiding excessive alcohol use, avoid tobacco use, improve nutrition, and engage in physical activities. Copy of written care plan, clinical summary, treatment plan, new medications, goals, and self management requirements were given to patient. Marianna Wagner APRN.CNP documented [facility] Telephone encounter Note * Telephone Encounter - Giulia Rogel MA - 10/07/2023 5:11 PM EDT Patient is informed and and reminder placed. He states he needs to drop off the specimen and he will call IWONA Rogel MA [facility]08-29-2024 Miscellaneous Notes* Telephone Encounter - Giulia Rogel MA - 10/07/2023 5:11 PM EDT Patient is informed and and reminder placed. He states he needs to drop off the specimen and he will call IWONA Rogel MA * Telephone Encounter - Marianna Wagner APRN.CNP - 10/07/2023 11:29 AM EDT Hgb has decreased showing anemia. I want to recheck her CMP and CBC again in 2 weeks. Has he completed the stool studies yet? Or make an appointment with GI yet? documented in this encounterDun[facility]08-29-[facility]24 Telephone encounter Note * Telephone Encounter - Marianna Wagner APRN.CNP - 10/07/2023 11:29 AM EDT Hgb has decreased showing anemia. I want to recheck her CMP and CBC again in 2 weeks. Has he completed the stool studies yet? Or make an appointment with GI yet? [facility]08-[facility] Telephone encounter Note* Telephone Encounter - Giulia Rogel MA - 09/24/2023 1:52 PM EDT Patient is informed but he gets rides through his insurance so he won't be able to chart picker the kit or get the blood work done for a while. He is going to try and go to [facility] to complete labs and stool study Giulia Rogel MA [facility]08-16-2024 Miscellaneous Notes* Telephone Encounter - Giulia Rogel MA - 09/24/2023 1:52 PM EDT Patient is informed but he gets rides through his insurance so he won't be able to chart picker the kit or get the blood work done for a while. He is going to try and go to [facility] to complete labs and stool study Giulia Rogel MA * Telephone Encounter - Marianna Wagner APRN.CNP - 09/24/2023 9:59 AM EDT I would like for him to come get a kit from our office for stool studies and test for C diff. I also placed a referral to GI but I would really like to see him in the office because I can't prescribeanything for pain or imaging without seeing him but if his pain becomes severe he should go to the ER as he may be dehydrated and they can run tests too. I also placed some lab orders. [facility] [address] [place] [address] Appointment: [phone] Desk: [phone] * Telephone Encounter - Suzi Haynes MA - 09/24/2023 9:45 AM EDT Patient called in stating for the last 6 weeks he has had diarrhea really bad and stomach pains. States he has diarrhea every day, all day and it is mostly bile and water coming out. He is soiling the bed and on the floor, cannot always make it to the restroom. States he was in a residential 6 weeks ago because of a seizure and the doctor in the residential had him on Tramadol for his stomach pain but it was not helping and they said they were going to put him on something stronger but then he was sent home without anything. Patient states his quality of life is so bad he does not want to keep going on like this. Clarified with patient that he was not going to harm himself in anyway. Please advise. Suzi Haynes MA documented in this encounterDun[facility]08-16-2024 Telephone encounter Note * Telephone Encounter - aMrianna Wagner APRN.STEPHANIE - 09/24/2023 9:59 AM EDT I would like for him to come get a kit from our office for stool studies and test for C diff. I also placed a referral to GI but I would really like to see him in the office because I can't prescribeanything for pain or imaging without seeing him but if his pain becomes severe he should go to the ER as he may be dehydrated and they can run tests too. I also placed some lab orders. [facility] [address] [place] [address] Appointment: [phone] Desk: [phone] [facility]08-[facility] Telephone encounter Note* Telephone Encounter - Suzi Haynes MA - 09/24/2023 9:45 AM EDT Patient called in stating for the last 6 weeks he has had diarrhea really bad and stomach pains. States he has diarrhea every day, all day and it is mostly bile and water coming out. He is soiling the bed and on the floor, cannot always make it to the restroom. States he was in a residential 6 weeks ago because of a seizure and the doctor in the residential had him on Tramadol for his stomach pain but it was not helping and they said they were going to put him on something stronger but then he was sent home without anything. Patient states his quality of life is so bad he does not want to keep going on like this. Clarified with patient that he was not going to harm himself in anyway. Please advise. Suzi Haynes MA [facility]08-07-2024 NoteHNO ID: [id number] Author: RADHA ETIENNE RN Service: ? Author Type: Registered Nurse Type: Progress Notes Filed: 09/15/2023 14:15 Note Text: PRIMARY CARE COORDINATION QUICK NOTE Patient identified by name and date . PCC called to discuss Care Coordination services. Pt is not interested. Radha Etienne, [facility]08-07-2024 History of Present illness Narrative* Radha Etienne RN - 09/15/2023 2:10 PM EDT PRIMARY CARE COORDINATION QUICK NOTE Patient identified by name and date . PCC called to discuss Care Coordination services. Pt is not interested. Radha Etienne RN documented in this encounterDunlap [facility]08-07-2024 NotePatient Outreach (AGACM) ANALILIA MELENDREZ ([id number]) 1960 M Date Time Provider Department 09/15/23 RADHA ETIENNE [facility] During your visit today, we recorded the following information about you: Radha Etienne RN 09/15/2023 2:15 PM Signed PRIMARY CARE COORDINATION QUICK NOTE Patient identified by name and date . PCC called to discuss Care Coordination services. Pt is not interested. Radha Etienne RN Allergies As of Date: 09/15/2023 (No Known Allergies) Date Reviewed: 08/09/2023 Reviewed by: Marianna Wagner APRN.SPLUNK D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 - Fully Assessed Reason for Visit: Behavioral Health Assistant Chronic Care [9832] Cmt: Care Coordination Prescriptions as of 09/15/2023 - Blood-Glucose Meter,Continuous (FREESTYLE MANGO 3 READER) [facility] Use to check blood sugar at least four (4) times daily. - Blood-Glucose Sensor (FREESTYLE MANGO 3 SENSOR) daniel Apply new sensor every fourteen (14) days to upper arm. - Cholecalciferol, Vitamin D3, (VITAMIN D-3) 50 mcg (2,000 unit) cap Take 1 capsule by mouth once daily. - FARXIGA 10 mg tablet Take 1 tablet by mouth daily with breakfast. - insulin glargine 100 unit/mL (3 mL) Inject 10 Units subcutaneously once daily. - metoprolol tartrate, short acting, (LOPRESSOR) 50 mg tablet Take 1 tablet by mouth two times a day. - ramipril (ALTACE) 10 mg capsule 10 mg. - pantoprazole DR (PROTONIX) 40 mg tablet Take 1 tablet by mouth two times a day. 30 minutes before eating. - dicyclomine (BENTYL) 10 mg capsule Take 1 capsule by mouth before meals and at bedtime. - atorvastatin (LIPITOR) 40 mg tablet TAKE 1 TABLET BY MOUTH ONCE DAILY. - metFORMIN (GLUCOPHAGE) 500 mg tablet Take 500 mg by mouth twice daily with meals. - MULTIVITAMIN ORAL Take 1 tablet by mouth once daily. - Insulin Worthing[place], Disposable, (NORBERTO PEN NEEDLE) 32 gauge x 5/32 ndle 1 application three times daily. Problem List As Of Date 09/15/2023 Noted Resolved SUMMARY 03/09/2016 Acute thoracic aortic dissection (HCC) [I71.019]03/09/2016 Primary hypertension [I10] 03/09/2016 History of IVDU (intravenous drug user) [F19.90]03/09/2016 Smoking greater than 10 pack years [F17.210] 03/09/2016 History of depression [Z86.59] 03/09/2016 Type 2 diabetes mellitus with complication, wit*03/09/2016 Alcohol-induced chronic pancreatitis (HCC) [K86*03/09/2016 History of ruptured aneurysm of thoracic aorta *03/09/2016 03/10/2016 Acute headache [R51.9] 03/09/2016 History of alcohol abuse [F10.11] 03/09/2016 History of dissection of thoracic aorta [Z86.79]03/10/2016 Preop testing [Z01.818] 03/16/2016 03/20/2016 Cardiac insufficiency (HCC) [I50.9] 03/19/2016 03/26/2016 Postoperative hypotension [I95.81] 03/19/2016 03/21/2016 Pain, postoperative, acute [G89.18] 03/19/2016 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] 03/20/2016 03/26/2016 Acute respiratory failure with hypoxia (HCC) [J*03/21/2016 03/26/2016 Fluid overload [E87.70] 03/21/2016 03/22/2016 Hypoxemia [R09.02] 03/23/2016 03/26/2016 Discharge planning issues [Z75.8] 03/26/2016 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] Pacemaker [Z95.0] Adrenal nodule (HCC) [E27.9] 08/09/2023 Acute kidney failure, unspecified (HCC) [N17.9] 01/03/2017 Anemia in CKD (chronic kidney disease) [N18.9, *08/09/2023 Aortic aneurysm (HCC) [I71.9] 08/09/2023 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 Chronic pancreatitis (HCC) [K86.1] 08/09/2023 Calcium deficiency [E58] 08/09/2023 Cirrhosis of liver (HCC) [K74.60] 08/09/2023 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*08/09/2023 Cognitive communication deficit [R41.841] 05/21/2023 Depression [F32.A] 08/09/2023 Elevated liver enzymes [R74.8] 08/09/2023 GERD (gastroesophageal reflux disease) [K21.9] 08/09/2023 Hiatal hernia [K44.9] 08/09/2023 History of aortic valve replacement [Z95.2] 08/09/2023 Hepatic steatosis [K76.0] 08/09/2023 History of kidney stones [Z87.442] 08/09/2023 History of pacemaker [Z95.0] 08/09/2023 History of TIA (transient ischemic attack) [Z86*08/09/2023 Hyperlipidemia LDL goal <100 [E78.5] 08/09/2023 Hyperosmolar non-ketotic state in patient with *08/09/2023 Insomnia, unspecified [G47.00] 05/22/2023 Left ventricular hypertrophy [I51.7] 08/09/2023 Nicotine dependence, unspecified, uncomplicated*01/03/2017 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] 05/20/2023 correction (current) use of insulin (HCC) [Z79.4]01/03/2017 Pansystolic murmur [R01.1] 08/09/2023 Unspecified severe protein-calorie malnutrition*05/20/2023 Encounter Status:Closed by RADHA ETIENNE on 09/15/23[facility]08-05-2024 Telephone encounter Note* Telephone Encounter - Yessica Umana LPN - 09/13/2023 11:20 AM EDT Left message for pt to call office. Yessica Umana LPN [facility]08-05-2024 Miscellaneous Notes* Telephone Encounter - Yessica Umana LPN - 09/13/2023 11:20 AM EDT Left message for pt to call office. Yessica Umana LPN * Telephone Encounter - Marianna Wagner APRN.CNP - 09/13/2023 8:16 AM EDT Please call patient to check on him since he did not go to an ER that I can see. He had called nurse rhys stating he was having blood diarrhea. [facility] Telephone encounter Note * Telephone Encounter - Marianna Wagner APRN.CNP - 09/13/2023 8:16 AM EDT Please call patient to check on him since he did not go to an ER that I can see. He had called nurse rhys stating he was having blood diarrhea. [facility]08-02-2024 Telephone encounter Note* Telephone Encounter - Eloy Garcia RN - 09/10/2023 6:34 PM EDT Pt sated he have loose stool and blood in stool. He stated he had diarrhea for about 4 weeks and blood was notice this morning. Outcome: Pt stated understanding to recommendation. He stated his dad is close by and he will call when his dad get home. Pt promise to call 911. Reason for Disposition Shock suspected (e.g., cold/pale/clammy skin, too weak to stand, low BP, rapid pulse) Protocols used: [id number] [facility]08-02-2024 Miscellaneous Notes* Telephone Encounter - Eloy Garcia RN - 09/10/2023 6:34 PM EDT Pt sated he have loose stool and blood in stool. He stated he had diarrhea for about 4 weeks and blood was notice this morning. Outcome: Pt stated understanding to recommendation. He stated his dad is close by and he will call when his dad get home. Pt promise to call 911. Reason for Disposition Shock suspected (e.g., cold/pale/clammy skin, too weak to stand, low BP, rapid pulse) Protocols used: [id number] documented in this encounterDunlap [facility] Hospital08-02-2024 NoteHNO ID: [id number] Author: RADHA ETIENNE RN Service: ? Author Type: Registered Nurse Type: Progress Notes Filed: 09/10/2023 10:55 Note Text: PRIMARY CARE COORDINATION QUICK NOTE Patient identified by name and date . PCC called to introduce Care Coordination services. Pt prefers a call back another day, as he is just not feeling good today. Radha Etienne [facility]08-02-2024 History of Present illness Narrative* Radha Etienne RN - 09/10/2023 10:49 AM EDT PRIMARY CARE COORDINATION QUICK NOTE Patient identified by name and date . PCC called to introduce Care Coordination services. Pt prefers a call back another day, as he is just not feeling good today. Radha Etienne RN documented in this encounterDunlap [facility] Hospital08-[facility]-2024 NotePatient Outreach (AGACM) ANALILIA MELENDREZ ([id number]) 1960 M Date Time Provider Department 09/10/23 RADHA ETIENNE [facility] During your visit today, we recorded the following information about you: Radha Etienne RN 09/10/2023 10:55 AM Signed PRIMARY CARE COORDINATION QUICK NOTE Patient identified by name and date . PCC called to introduce Care Coordination services. Pt prefers a call back another day, as he is just not feeling good today. Radha Etienne RN Allergies As of Date: 09/10/2023 (No Known Allergies) Date Reviewed: 08/09/2023 Reviewed by: Marianna Wagner APRN.SPLUNK D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 - Fully Assessed Reason for Visit: Behavioral Health Assistant- Other [[id number]] Cmt: Care Coordination Prescriptions as of 09/10/2023 - Blood-Glucose Meter,Continuous (FREESTYLE MANGO 3 READER) [facility] Use to check blood sugar at least four (4) times daily. - Blood-Glucose Sensor (FREESTYLE MANGO 3 SENSOR) daniel Apply new sensor every fourteen (14) days to upper arm. - Cholecalciferol, Vitamin D3, (VITAMIN D-3) 50 mcg (2,000 unit) cap Take 1 capsule by mouth once daily. - FARXIGA 10 mg tablet Take 1 tablet by mouth daily with breakfast. - insulin glargine 100 unit/mL (3 mL) Inject 10 Units subcutaneously once daily. - metoprolol tartrate, short acting, (LOPRESSOR) 50 mg tablet Take 1 tablet by mouth two times a day. - ramipril (ALTACE) 10 mg capsule 10 mg. - pantoprazole DR (PROTONIX) 40 mg tablet Take 1 tablet by mouth two times a day. 30 minutes before eating. - dicyclomine (BENTYL) 10 mg capsule Take 1 capsule by mouth before meals and at bedtime. - atorvastatin (LIPITOR) 40 mg tablet TAKE 1 TABLET BY MOUTH ONCE DAILY. - metFORMIN (GLUCOPHAGE) 500 mg tablet Take 500 mg by mouth twice daily with meals. - MULTIVITAMIN ORAL Take 1 tablet by mouth once daily. - Insulin [place], Disposable, (NORBERTO PEN NEEDLE) 32 gauge x 5/32 ndle 1 application three times daily. Problem List As Of Date 09/10/2023 Noted Resolved SUMMARY 03/09/2016 Acute thoracic aortic dissection (HCC) [I71.019]03/09/2016 Primary hypertension [I10] 03/09/2016 History of IVDU (intravenous drug user) [F19.90]03/09/2016 Smoking greater than 10 pack years [F17.210] 03/09/2016 History of depression [Z86.59] 03/09/2016 Type 2 diabetes mellitus with complication, wit*03/09/2016 Alcohol-induced chronic pancreatitis (HCC) [K86*03/09/2016 History of ruptured aneurysm of thoracic aorta *03/09/2016 03/10/2016 Acute headache [R51.9] 03/09/2016 History of alcohol abuse [F10.11] 03/09/2016 History of dissection of thoracic aorta [Z86.79]03/10/2016 Preop testing [Z01.818] 03/16/2016 03/20/2016 Cardiac insufficiency (HCC) [I50.9] 03/19/2016 03/26/2016 Postoperative hypotension [I95.81] 03/19/2016 03/21/2016 Pain, postoperative, acute [G89.18] 03/19/2016 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] 03/20/2016 03/26/2016 Acute respiratory failure with hypoxia (HCC) [J*03/21/2016 03/26/2016 Fluid overload [E87.70] 03/21/2016 03/22/2016 Hypoxemia [R09.02] 03/23/2016 03/26/2016 Discharge planning issues [Z75.8] 03/26/2016 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] Pacemaker [Z95.0] Adrenal nodule (HCC) [E27.9] 08/09/2023 Acute kidney failure, unspecified (HCC) [N17.9] 01/03/2017 Anemia in CKD (chronic kidney disease) [N18.9, *08/09/2023 Aortic aneurysm (HCC) [I71.9] 08/09/2023 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 Chronic pancreatitis (HCC) [K86.1] 08/09/2023 Calcium deficiency [E58] 08/09/2023 Cirrhosis of liver (HCC) [K74.60] 08/09/2023 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*08/09/2023 Cognitive communication deficit [R41.841] 05/21/2023 Depression [F32.A] 08/09/2023 Elevated liver enzymes [R74.8] 08/09/2023 GERD (gastroesophageal reflux disease) [K21.9] 08/09/2023 Hiatal hernia [K44.9] 08/09/2023 History of aortic valve replacement [Z95.2] 08/09/2023 Hepatic steatosis [K76.0] 08/09/2023 History of kidney stones [Z87.442] 08/09/2023 History of pacemaker [Z95.0] 08/09/2023 History of TIA (transient ischemic attack) [Z86*08/09/2023 Hyperlipidemia LDL goal <100 [E78.5] 08/09/2023 Hyperosmolar non-ketotic state in patient with *08/09/2023 Insomnia, unspecified [G47.00] 05/22/2023 Left ventricular hypertrophy [I51.7] 08/09/2023 Nicotine dependence, unspecified, uncomplicated*01/03/2017 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] 05/20/2023 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07-16-2024 NoteHNO ID: [id number] Author: RADHA ETIENNE RN Service: ? Author Type: Registered Nurse Type: Progress Notes Filed: 08/24/2023 13:57 Note Text: PRIMARY CARE COORDINATION QUICK NOTE Patient identified by name and date . PCC called to introduce care coordination services. Pt isn't home right now. Radha Etienne [facility]07-16-2024 History of Present illness Narrative* Radha Etienne, RN - 08/24/2023 1:52 PM EDT PRIMARY CARE COORDINATION QUICK NOTE Patient identified by name and date . PCC called to introduce care coordination services. Pt isn't home right now. Radha Etienne RN documented in this encounterDunlap [facility] Hospital07-16-2024 NotePatient Outreach (AGACM) ANALILIA MELENDREZ ([id number]) 1960 M Date Time Provider Department 08/24/23 RADHA ETIENNE [facility] During your visit today, we recorded the following information about you: Radha Etienne RN 08/24/2023 1:57 PM Signed PRIMARY CARE COORDINATION QUICK NOTE Patient identified by name and date . PCC called to introduce care coordination services. Pt isn't home right now. Radha Etienne RN Allergies As of Date: 08/24/2023 (No Known Allergies) Date Reviewed: 08/09/2023 Reviewed by: Marianna Wagner APRN.SPLUNK D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 - Fully Assessed Reason for Visit: Behavioral Health Assistant- Other [[id number]] Cmt: Care Coordination Prescriptions as of 08/24/2023 - Cholecalciferol, Vitamin D3, (VITAMIN D-3) 50 mcg (2,000 unit) cap Take 1 capsule by mouth once daily. - FARXIGA 10 mg tablet Take 1 tablet by mouth daily with breakfast. - insulin glargine 100 unit/mL (3 mL) Inject 10 Units subcutaneously once daily. - metoprolol tartrate, short acting, (LOPRESSOR) 50 mg tablet Take 1 tablet by mouth two times a day. - ramipril (ALTACE) 10 mg capsule 10 mg. - pantoprazole DR (PROTONIX) 40 mg tablet Take 1 tablet by mouth two times a day. 30 minutes before eating. - dicyclomine (BENTYL) 10 mg capsule Take 1 capsule by mouth before meals and at bedtime. - atorvastatin (LIPITOR) 40 mg tablet TAKE 1 TABLET BY MOUTH ONCE DAILY. - metFORMIN (GLUCOPHAGE) 500 mg tablet Take 500 mg by mouth twice daily with meals. - MULTIVITAMIN ORAL Take 1 tablet by mouth once daily. - Insulin [place], Disposable, (NORBERTO PEN NEEDLE) 32 gauge x /32 ndle 1 application three times daily. Problem List As Of Date 08/24/2023 Noted Resolved SUMMARY 03/09/2016 Acute thoracic aortic dissection (HCC) [I71.019]03/09/2016 Primary hypertension [I10] 03/09/2016 History of IVDU (intravenous drug user) [F19.90]03/09/2016 Smoking greater than 10 pack years [F17.210] 03/09/2016 History of depression [Z86.59] 03/09/2016 Type 2 diabetes mellitus with complication, wit*03/09/2016 Alcohol-induced chronic pancreatitis (HCC) [K86*03/09/2016 History of ruptured aneurysm of thoracic aorta *03/09/2016 03/10/2016 Acute headache [R51.9] 03/09/2016 History of alcohol abuse [F10.11] 03/09/2016 History of dissection of thoracic aorta [Z86.79]03/10/2016 Preop testing [Z01.818] 03/16/2016 03/20/2016 Cardiac insufficiency (HCC) [I50.9] 03/19/2016 03/26/2016 Postoperative hypotension [I95.81] 03/19/2016 03/21/2016 Pain, postoperative, acute [G89.18] 03/19/2016 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] 03/20/2016 03/26/2016 Acute respiratory failure with hypoxia (HCC) [J*03/21/2016 03/26/2016 Fluid overload [E87.70] 03/21/2016 03/22/2016 Hypoxemia [R09.02] 03/23/2016 03/26/2016 Discharge planning issues [Z75.8] 03/26/2016 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] Pacemaker [Z95.0] Adrenal nodule (HCC) [E27.8] 08/09/2023 Acute kidney failure, unspecified (HCC) [N17.9] 01/03/2017 Anemia in CKD (chronic kidney disease) [N18.9, *08/09/2023 Aortic aneurysm (HCC) [I71.9] 08/09/2023 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 Chronic pancreatitis (HCC) [K86.1] 08/09/2023 Calcium deficiency [E58] 08/09/2023 Cirrhosis of liver (HCC) [K74.60] 08/09/2023 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*08/09/2023 Cognitive communication deficit [R41.841] 05/21/2023 Depression [F32.A] 08/09/2023 Elevated liver enzymes [R74.8] 08/09/2023 GERD (gastroesophageal reflux disease) [K21.9] 08/09/2023 Hiatal hernia [K44.9] 08/09/2023 History of aortic valve replacement [Z95.2] 08/09/2023 Hepatic steatosis [K76.0] 08/09/2023 History of kidney stones [Z87.442] 08/09/2023 History of pacemaker [Z95.0] 08/09/2023 History of TIA (transient ischemic attack) [Z86*08/09/2023 Hyperlipidemia LDL goal <100 [E78.5] 08/09/2023 Hyperosmolar non-ketotic state in patient with *08/09/2023 Insomnia, unspecified [G47.00] 05/22/2023 Left ventricular hypertrophy [I51.7] 08/09/2023 Nicotine dependence, unspecified, uncomplicated*01/03/2017 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] 05/20/2023 correction (current) use of insulin (HCC) [Z79.4]01/03/2017 Pansystolic murmur [R01.1] 08/09/2023 Unspecified severe protein-calorie malnutrition*05/20/2023 Encounter Status:Closed by RADHA ETIENNE on 08/24/23[facility]07-12-2024 Telephone encounter Note* Telephone Encounter - Giulia Rogel MA - 08/20/2023 10:44 AM EDT Patient called he would like an order for raysa Rogel MA [facility]07-12-2024 Miscellaneous Notes* Telephone Encounter - Giulia Rogel MA - 08/20/2023 10:44 AM EDT Patient called he would like an order for raysa Rogel MA documented in this encounterDunlap [facility] Hospital07-[facility]24 Telephone encounter Note * Telephone Encounter - Andrew Ponce MA - 08/16/2023 2:21 PM EDT Pt. Notified. Reminder placed. Andrew Ponce MA [facility]07-08-2024 Telephone encounter Note* Telephone Encounter - Andrew Ponce MA - 08/16/2023 2:21 PM EDT ----- Message from Marianna Wagner APRN.SPLUNK D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 sent at 08/16/2023 2:14 PM EDT ----- A1C has improved to 6.8 which is considered controlled. Continue current medications. Recheck in 6 months. [facility]07-08-2024 Miscellaneous Notes* Telephone Encounter - Andrew Ponce MA - 08/16/2023 2:21 PM EDT Pt. Notified. Reminder placed. Andrew Ponce MA * Telephone Encounter - Andrew Ponce MA - 08/16/2023 2:21 PM EDT ----- Message from Marianna Wagner APRN.SPLUNK D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 sent at 08/16/2023 2:14 PM EDT ----- A1C has improved to 6.8 which is considered controlled. Continue current medications. Recheck in 6 months. documented in this encounterDunlap [facility] Hospital07-05-2024 Telephone encounter Note * Telephone Encounter - Suzi Haynes MA - 08/13/2023 9:27 AM EDT Patient informed of results, recommendations and scripts sent in. Patient states he does not use [facility] he uses [facility] in [place] and would like scripts resent. Also patient states he does not take any supplements with vitamin B12. Please advise. Suzi Haynes MA [facility]07-05-2024 Miscellaneous Notes* Telephone Encounter - Suzi Haynes MA - 08/13/2023 9:27 AM EDT Patient informed of results, recommendations and scripts sent in. Patient states he does not use [facility] he uses [facility] in [place] and would like scripts resent. Also patient states he does not take any supplements with vitamin B12. Please advise. Suzi Haynes MA * Telephone Encounter - Marianna Wagner APRN.SPLUNK D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 - 08/11/2023 6:10 PM EDT Please notify that patient that his urine was positive for an infection and the culture grew a bacteria called E.coli. I will start him on an antibiotic called Keflex that he will need to take twice a day for 7 days and complete the full course. CBC shows anemia- needs to check a fecal occult. Order placed. PSA was normal HIV negative TSH was normal B12 was high- needs to hold anything that has B12 in it Vitamin D was low- start 2,000 international unit(s) daily. Rx sent in. Liver enzymes are elevated Kidney function is elevated. Please make sure he is only taking Ramipril alone and not with Lisinopril. Will forward this to urgent care technician since he is a complicated case. documented in this encounterDunlap [facility] Hospital07-03-2024 Telephone encounter Note * Telephone Encounter - Marianna Wagner APRN.CNP - 08/11/2023 6:10 PM EDT Please notify that patient that his urine was positive for an infection and the culture grew a bacteria called E.coli. I will start him on an antibiotic called Keflex that he will need to take twice a day for 7 days and complete the full course. CBC shows anemia- needs to check a fecal occult. Order placed. PSA was normal HIV negative TSH was normal B12 was high- needs to hold anything that has B12 in it Vitamin D was low- start 2,000 international unit(s) daily. Rx sent in. Liver enzymes are elevated Kidney function is elevated. Please make sure he is only taking Ramipril alone and not with Lisinopril. Will forward this to urgent care technician since he is a complicated case. [facility]07-01-2024 Instructions* Patient Instructions* Marianna Wagner APRN.CNP - 08/09/2023 1:37 PM EDT [facility] [address] [place] [address] Appointment: [phone] Desk: [phone] documented in this encounterDunlap Memorial Hospital07-01-2024 NoteHNO ID: [id number] Author: MARIANNA WAGNER APRN.SPLUNK D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 Service: ? Author Type: Nurse Practitioner Type: Progress Notes Filed: 08/13/2023 12:57 Note Text: [facility] Marianna Wagner VEHICLE DISMANTLER-SPLUNK D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 [address] [place] [address] Dept Dept. Visit Date: August 09, 2023 Mr.Steven Melendrez Date of : 1960 MRN/E #: [id number] Chief Complaint: Patient presents with: Establish Care: Previous pt. Of dr. Young at [facility]. Think he may have a seizure or stoke. Went to residential for 5 week. (Alexy hart in [facility]) Diarrhea: X 2 months. BM is orange . Loss of weight . Goes 8 times a day History of Present Illness Analilia Melendrez is a 63 year old male presenting today as a new patient to establish care. I reviewed past medical, surgical, social, and family histories today and updated chart. Allergies, chronic medications, and supplements were also reviewed. PMH of DM type 2 on insulin, Having chronic diarrhea for the last 2 months. Can go up to 6-8 x a day. The color is orange. No blood that he can see. Having upper abdominal pain. Hx of pancreatitis. He is having upper abdominal pain. He is taking a PPI. Upper GI in the past. Last colonoscopy was about 30 years ago. Has been losing weight since then. Has lost about 25 lbs. Was 165 lbs prior to the residential in June. Has frequent nausea and vomiting. Has a low appetite Unsure of what his last A1C was BS are either really high or low. Has a freestyle mango. Taking Lantus insulin. No meal time insulin. Taking Farxiga and Metformin (has been on that for awhile). Was supposed to follow with a ultrasound sonographer Hx of aortic valve replacement Had a congenital aortic aneurysm Has a pacemaker Has had heart attack He is not following with any specialists right now. States he either had a seizure or stroke and was placed in the hospital and then went to a residential for 5 weeks. 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 Started smoking again, 5-10 cigarettes Has quit in the past, up to a year Drinks alcohol 1 beer every other Used to drink vodka every day, approximately 3 years ago Was in rehab before No marijuana or illicit drugs. 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 Son overdosed and 8 years ago. EKG Summary: 05/04/2021 Sinus rhythm...normal P axis, V-rate 50- 99 Probable left atrial enlargement...P >50mS, <-0.10mV V1 Right bundle branch block...QRSd>120, terminal axis(90,270) Inferior infarct, old...Q >35mS, II III aVF Echocardiogram Summary (03/2020): 1. Left ventricular systolic function is normal. 2. The estimated ejection fraction is 70%. 3. Severe concentric left ventricular hypertrophy. 4. Mild diffuse mitral valve thickening. 5. Trivial mitral valve insufficiency. 6. Mild tricuspid valve insufficiency. 7. Stable appearing bioprosthetic aortic valve apparatus. 8. Right ventricular systolic pressure estimated to be 19 mmHg. 9. Transmitral Doppler flow suggestive of impaired relaxation of left ventricle. HPI PAST MEDICAL HISTORY Diagnosis Date Anxiety Aortic aneurysm ([facility]) S/P Repair Aortic aneurysm ([facility]) Aortic valve disorder S/P Replacement CAD (coronary artery disease) nonobstructive Coronary artery disease Depression Diabetes mellitus, type II ([facility]) Insulin dependent Hx of ascending aorta repair Hyperlipidemia Hypertension Non-ST elevation AZ (NSTEMI) ([facility]) 06/24 NSTEMI (non-ST elevated myocardial infarction) ([facility]) Pacemaker Pacemaker Paroxysmal atrial fibrillation ([facility]) RBBB (right bundle branch block) S/P aortic valve replacement [facility] mechanical Syncope Tachy-fernando syndrome ([facility]) Tachy-fernando syndrome ([facility]) Tobacco abuse chronic Tobacco user Type 2 diabetes mellitus ([facility]) PAST SURGICAL HISTORY Procedure Laterality Date ABD AORTIC ANEURYSM REPAIR ASCENDING AORTA GRAFT W/AORTIC ROOT CORONARY ARTERY BYPASS GRAFT HX 2016 2005 HEART CATHETERIZATION 06/24/2016 HEART VALVE REPLACEMENT 2017 Aortic x2 ;2015 HERNIA REPAIR HX PACEMAKER 06/25/2016 REPLACEMENT AORTIC VALVE W BYPASS Social History Tobacco Use Smoking status: Every Day Packs/day: .5 Types: Cigarettes Last attempt to quit: 03/09/2016 Years since quittin.4 Smokeless tobacco: Never Substance Use Topics Alcohol use: Yes Drug use: No Social History Social History Narrative Merged History Encounter Family History Reviewed Including Cardiac Diseases, Psychiatric Diseases, AND Substance Abuse Problem: Coronary Artery Disease Relation: Father Age of Onset: (Not Specified) ALLERGIES No Known Allergies Current Outpatient Medications Medication Sig metoprolol tartrate, short acting, (LOPRESSOR) 50 mg tablet Take 1 tablet by mouth two times a day. ramipril (ALTACE) 10 mg capsule 10 mg. jiménez (more content not included)...[facility]07-01-2024 History of Present illness Narrative* Marianna Wagner APRN.SPLUNK D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 - 08/09/2023 1:13 PM EDT Images from the original note were not included. [facility] Marianna Wagner VEHICLE DISMANTLER-SPLUNK D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 [address] [place] [address] Dept Dept. Visit Date: August 09, 2023 Mr.Steven Melendrez Date of : 1960 MRN/E #: [id number] Chief Complaint: Patient presents with: Establish Care: Previous pt. Of dr. Young at [facility]. Think he may have a seizure or stoke. Went to residential for 5 week. ([facility] h[facility] in [facility]) Diarrhea: X 2 months. BM is orange . Loss of weight . Goes 8 times a day History of Present Illness Analilia Melendrez is a 63 year old male presenting today as a new patient to establish care. I reviewed past medical, surgical, social, and family histories today and updated chart. Allergies, chronic medications, and supplements were also reviewed. PMH of DM type 2 on insulin, Having chronic diarrhea for the last 2 months. Can go up to 6-8 x a day. The color is orange. No blood that he can see. Having upper abdominal pain. Hx of pancreatitis. He is having upper abdominal pain. He is taking a PPI. Upper GI in the past. Last colonoscopy was about 30 years ago. Has been losing weight since then. Has lost about 25 lbs. Was 165 lbs prior to the residential in June. Has frequent nausea and vomiting. Has a low appetite Unsure of what his last A1C was BS are either really high or low. Has a freestyle mango. Taking Lantus insulin. No meal time insulin. Taking Farxiga and Metformin (has been on that for awhile). Was supposed to follow with a ultrasound sonographer Hx of aortic valve replacement Had a congenital aortic aneurysm Has a pacemaker Has had heart attack He is not following with any specialists right now. States he either had a seizure or stroke and was placed in the hospital and then went to a residential for 5 weeks. 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 Started smoking again, 5-10 cigarettes Has quit in the past, up to a year Drinks alcohol 1 beer every other Used to drink vodka every day, approximately 3 years ago Was in rehab before No marijuana or illicit drugs. 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 Son overdosed and 8 years ago. EKG Summary: 05/04/2021 Sinus rhythm...normal P axis, V-rate 50- 99 Probable left atrial enlargement...P >50mS, <-0.10mV V1 Right bundle branch block...QRSd>120, terminal axis(90,270) Inferior infarct, old...Q >35mS, II III aVF Echocardiogram Summary (03/2020): 1. Left ventricular systolic function is normal. 2. The estimated ejection fraction is 70%. 3. Severe concentric left ventricular hypertrophy. 4. Mild diffuse mitral valve thickening. 5. Trivial mitral valve insufficiency. 6. Mild tricuspid valve insufficiency. 7. Stable appearing bioprosthetic aortic valve apparatus. 8. Right ventricular systolic pressure estimated to be 19 mmHg. 9. Transmitral Doppler flow suggestive of impaired relaxation of left ventricle. HPI PAST MEDICAL HISTORY Diagnosis Date Anxiety Aortic aneurysm ([facility]) S/P Repair Aortic aneurysm ([facility]) Aortic valve disorder S/P Replacement CAD (coronary artery disease) nonobstructive Coronary artery disease Depression Diabetes mellitus, type II ([facility]) Insulin dependent Hx of ascending aorta repair Hyperlipidemia Hypertension Non-ST elevation [place] (NSTEMI) ([facility]) 06/24 NSTEMI (non-ST elevated myocardial infarction) ([facility]) Pacemaker Pacemaker Paroxysmal atrial fibrillation ([facility]) RBBB (right bundle branch block) S/P aortic valve replacement [facility] mechanical Syncope Tachy-fernando syndrome (HCC) Tachy-fernando syndrome (HCC) Tobacco abuse chronic Tobacco user Type 2 diabetes mellitus (HCC) PAST SURGICAL HISTORY Procedure Laterality Date ABD AORTIC ANEURYSM REPAIR ASCENDING AORTA GRAFT W/AORTIC ROOT CORONARY ARTERY BYPASS GRAFT HX 2017 2006 HEART CATHETERIZATION 06/24/2016 HEART VALVE REPLACEMENT 2017 Aortic x2 ;2015 HERNIA REPAIR HX PACEMAKER 06/25/2016 REPLACEMENT AORTIC VALVE W BYPASS Social History Tobacco Use Smoking status: Every Day Packs/day: .5 Types: Cigarettes Last attempt to quit: 03/09/2016 Years since quittin.4 Smokeless tobacco: Never Substance Use Topics Alcohol use: Yes Drug use: No Social History Social History Narrative Merged History Encounter Family History Reviewed Including Cardiac Diseases, Psychiatric Diseases, & Substance Abuse Problem: Coronary Artery Disease Relation: Father Age of Onset: (Not Specified) ALLERGIES No Known Allergies Current Outpatient Medications Medication Sig metoprolol tartrate, short acting, (LOPRESSOR) 50 mg tablet Take 1 tablet by mouth two times a day. ramipril (ALTACE) 10 mg capsule [address] (PROTONIX) 40 mg tablet Take 1 tablet by mouth two times a day. 30 minutes before eating. metFORMIN (GLUCOPHAGE) 500 mg tablet Take 500 mg by mouth twice daily with meals. Insulin [place], Disposable, (NORBERTO PEN NEEDLE) 32 gauge x 5/32 ndle 1 application three times daily. cephALEXin (KEFLEX) 500 mg capsule Take 1 capsule by mouth two times a day for 7 days. Cholecalciferol, Vitamin D3, (VITAMIN D-3) 50 mcg (2,000 unit) cap Take 1 capsule by mouth once daily. FARXIGA 10 mg tablet Take 1 tablet by mouth daily with breakfast. insulin glargine 100 unit/mL (3 mL) Inject 10 Units subcutaneously once daily. dicyclomine (BENTYL) 10 mg capsule Take 1 capsule by mouth before meals and at bedtime. atorvastatin (LIPITOR) 40 mg tablet TAKE 1 TABLET BY MOUTH ONCE DAILY. MULTIVITAMIN ORAL Take 1 tablet by mouth once daily. No current facility-administered medications for this visit. Review of Systems Review of Systems Constitutional: Positive for appetite change, fatigue and unexpected weight change. Negative for chills, diaphoresis and fever. HENT: Negative. Eyes: Negative for visual disturbance. Respiratory: Positive for shortness of breath. Negative for cough, chest tightness and wheezing. Cardiovascular: Positive for palpitations (on occasion) and leg swelling. Negative for chest pain. Gastrointestinal: Positive for abdominal pain, diarrhea, nausea and vomiting. Negative for abdominal distention, blood in stool, constipation and rectal pain. Endocrine: Negative. Genitourinary: Positive for dysuria. Negative for frequency, hematuria, testicular pain and urgency. Musculoskeletal: Negative for arthralgias, back pain, gait problem, joint swelling, myalgias, neck pain and neck stiffness. Skin: Negative. Allergic/Immunologic: Negative. Neurological: Positive for dizziness, light-headedness (with position) and headaches. Hematological: Bruises/bleeds easily. Vital Signs BP 122/76 Pulse 98 Temp 99 Ht 5' 11 (1.80m) Wt 139 lb (63.1kg) SpO2 99% BMI 19.40 kg/(m^2). Physical Exam Vitals and nursing note reviewed. Constitutional: Appearance: He is cachectic. HENT: Mouth/Throat: Mouth: Mucous membranes are moist. Pharynx: Oropharynx is clear. Eyes: Pupils: Pupils are equal, round, and reactive to light. Cardiovascular: Rate and Rhythm: Normal rate and regular rhythm. Heart sounds: S1 normal and S2 normal. Murmur heard. Systolic murmur is present with a grade of 1/6. Pulmonary: Breath sounds: Normal breath sounds. Abdominal: General: Bowel sounds are normal. There is no distension. Palpations: Abdomen is soft. Tenderness: There is generalized abdominal tenderness. Hernia: No hernia is present. Musculoskeletal: Cervical back: Neck supple. Lymphadenopathy: Cervical: No cervical adenopathy. Upper Body: Right upper body: No supraclavicular adenopathy. Left upper body: No supraclavicular adenopathy. Skin: General: Skin is warm and dry. Coloration: Skin is pale. Neurological: Mental Status: He is alert and oriented to person, place, and time. Cranial Nerves: Cranial nerves 2-12 are intact. Psychiatric: Mood and Affect: Mood normal. Behavior: Behavior is cooperative. Cognition and Memory: Cognition normal. Visit Diagnoses (E11.8, Z79.4) Type 2 diabetes mellitus with complication, with long-term current use of insulin (HCC) (primary encounter diagnosis) (K86.0) Alcohol-induced chronic pancreatitis (HCC) (K58.9) Irritable bowel syndrome, unspecified type (K52.9) Chronic diarrhea (R63.4) Weight loss (I10) Primary hypertension (Z95.0) Pacemaker (Z86.79) History of dissection of thoracic aorta (F17.210) Cigarette smoker (E78.2) Hyperlipidemia, mixed (E55.9) Vitamin D deficiency (N18.30) Stage 3 chronic kidney disease, unspecified whether stage 3a or 3b CKD (HCC) (K21.9) Gastroesophageal reflux disease, unspecified whether esophagitis present (R30.0) Dysuria (Z12.5) Screening for prostate cancer (Z11.4) Screening for HIV (human immunodeficiency virus) Assessment and Plan 1. Type 2 diabetes mellitus with complication, with long-term current use of insulin (HCC) - ICD9: 250.90, V58.67, ICD10: E11.8, Z79.4 (primary diagnosis) - Control undetermined, due for labs - Continue current medications - Statin prescribed - atorvastatin - Blood glucose monitoring on a continuous glucose monitoring schedule - Follow up in 3 months, sooner should any other issues arise. - CONSULT TO ENDOCRINOLOGY - LIPID PANEL BASIC HGBA1C 2. Alcohol-induced chronic pancreatitis (HCC) - ICD9: 577.1, ICD10: K86.0 - COMPLETE BLOOD COUNT AND DIFFERENTIAL - COMPREHENSIVE METABOLIC PANEL - HEP ACUTE PANEL BL 3. Irritable bowel syndrome, unspecified type - ICD9: 564.1, ICD10: K58.9 - DICYCLOMINE 10 MG CAPSULE 4. Chronic diarrhea - ICD9: 787.91, ICD10: K52.9 - CONSULT TO GASTROENTEROLOGY - COMPLETE BLOOD COUNT AND DIFFERENTIAL - COMPREHENSIVE METABOLIC PANEL - LIPASE - HEP ACUTE PANEL BL - THYROID STIMULATING HORMONE - DICYCLOMINE 10 MG CAPSULE - OVA + PARA MICROSCOPIC - CRYPTOSPORIDIUM AND GIARDIA ANTIGENS BY EIA - C. DIFFICILE PCR 5. Weight loss - ICD9: 783.21, ICD10: R63.4 - CONSULT TO ENDOCRINOLOGY - CONSULT TO GASTROENTEROLOGY - COMPLETE BLOOD COUNT AND DIFFERENTIAL - COMPREHENSIVE METABOLIC PANEL - HEP ACUTE PANEL BL - THYROID STIMULATING HORMONE - PSA/PROSTATE SPECIFIC ANTIGEN SCREENING 6. Primary hypertension - ICD9: 401.9, ICD10: I10 - Controlled - Continue current medications - Recommend home blood pressure monitoring, to bring results to next visit - Encouraged sodium restriction, DASH or Mediterranean diet - Recommend regular aerobic exercise - Follow up in 3 months or sooner if needed for hypertension visit 7. Pacemaker - ICD9: V45.01, ICD10: Z95.0 8. History of dissection of thoracic aorta - ICD9: V12.59, ICD10: Z86.79 9. Cigarette smoker - ICD9: 305.1, ICD10: F17.210 - Cessation encouraged. - Physiologic and physical aspects of tobacco addiction as well as strategies for quitting were discussed. - Counseling was given focusing on the harmful effects of this addiction especially given the patient's medical condition(s) which will be worsened because of the chemicals in tobacco. 10. Hyperlipidemia, mixed - ICD9: 272.2, ICD10: E78.2 - Control undetermined, due for labs - Continue current medications - Counseled on healthy diet and regular exercise - LIPID PANEL BASIC 11. Vitamin D deficiency - ICD9: 268.9, ICD10: E55.9 - VITAMIN D 25 HYDROXY 12. Stage 3 chronic kidney disease, unspecified whether stage 3a or 3b CKD (HCC) - ICD9: 585.3, ICD10: N18.30 - eGFR: 59 Due for labs - Counseled on avoiding NSAIDs, adequate hydration - Counseled on low sodium diet - COMPREHENSIVE METABOLIC PANEL - IRON AND TIBC - FERRITIN - FOLATE, SERUM - VITAMIN B12 - HIV 1/2 COMBO WITH REFLEX TO DIFFERENTIATION 13. Gastroesophageal reflux disease, unspecified whether esophagitis present - ICD9: 530.81, ICD10:K21.9 - Discussed lifestyle modifications including limiting caffeine, no meals three hours before sleep,and head of bed elevation - Begin treatment with Protonix 40 mg BID - Refer for GI consult - PANTOPRAZOLE 40 MG TABLET,DELAYED RELEASE 14. Dysuria - ICD9: 788.1, ICD10: R30.0 acute - UA positive for hematuria and proteinuria and glucose - Patient education for prevention given - UA DIP B/O - URINE CULTURE 15. Screening for prostate cancer - ICD9: V76.44, ICD10: Z12.5 - Counseled on healthy diet and regular exercise - Risks/benefits of prostate cancer screening discussed. screening PSA ordered - PSA/PROSTATE SPECIFIC ANTIGEN SCREENING 16. Screening for HIV (human immunodeficiency virus) - ICD9: V73.89, ICD10: Z11.4 - HIV 1/2 COMBO WITH REFLEX TO DIFFERENTIATION Discussed above plan with patient and/or caregiver. Patient and/or caregiver agreeable with above plan. Follow up visit Return in about 3 months (around 11/09/2023) for DM follow-up. Marianna Wagner APRN.CNP, signed on August 09, 2023 1:13 PM [facility] Discharge summary Author Refugio Rojas [facility] May 20, 2023 9:40am Note Date/Time May 20, 2023 9:3 0am [facility] Medical Records Department [address] [place] [address] Transfer to [facility] MR#: [id number] Acct: [id number] Name: ANALILIA MELENDREZ Rep #:[id number] : 1960 62 From: Refugio Carbajal PCP: ALAN Chahal tus:ADM IN Certification of patient admission REQUIRED AT TIME OF ADMISSION. I CERTIFY THAT POST-HOSPITAL ECF SERVICES ARE REQUIRED TO BE GIVEN ON AN IN-PATIENT BASIS BECAUSE OF THE ABOVE NAMED PATIENT'S NEED FOR DETENTION CARE ON A CONTINUING BASIS FOR THE CONDITION(S) FOR WHICH HE/SHE WAS RECEIVING IN-PATIENT HOSPITAL SERVICES PRIOR TO HIS/HER TRANSFER TO THE [facility]. 05/20/23 0940<Electronically signed by Refugio Rojas MD> Diet Diet Order/Speech Therapy: 05/11/23 08:25 Carb [Diet: Carbohydrate Controlled] Food consistency:: Easy to Chew Liquid Consistency:: Regular/Thin Dietary Modifications:: Cardiac / Heart Healthy Type of Dietary Supplement:: Glucerna Shake Is pt able to select menu?: Yes Diet Comments: 120mL glucerna CHOCOLATE w/ breakfast and dinner tray; Routine Orders/Code Status Suppository Type: Dulcolax 10mg Suppository Frequency: Daily PRN Wound(s) left elbow: Wound Type: scabbed area Therapies Weight Bearing: Weight bearing as tolerated Extremity Affected:: Bilateral Lower Physical Therapy: Eval and Treat Occupational Therapy: Eval and Treat Speech Therapy: Eval and Treat Problem/Diagnosis (1) MALIK (acute kidney injury): Status: Acute Code(s): N17.9 - Acute kidney failure, unspecified (2) HTN (hypertension): Status: Chronic Code(s): I10 - Essential (primary) hypertension Plan Patient is a 62-year-old gentleman with multiple comorbidities admitted with acute alcohol withdrawal. Patient had recently been discharged from the hospital To father's home after he refused to SNF . He was also found to be hypotensive with acute cystitis on admission. 1. Sepsis ? Secondary to acute cystitis as evidenced by the presence of an infection, SIRScriteria as well as evidence of endorgan dysfunction with acute kidney injury aswell as hypotension. Sepsis protocol initiated ordered lactic acid level blood cultures patient already on Rocephin patient resuscitated with IV fluids per protocol transferred to the intensive care unit in guarded ordered for PICC line. If patient does not respond to fluid resuscitation plan will be to start patient on norepinephrine. Consult placed to washer cutter 05/16: Sepsis has resolved. 2. Chronic alcohol dependence with acute alcohol withdrawal ? Admitted to regular nursing floor managed with phenobarb taper.? Patient progressed being monitored with [facility] protocol 05/16: Earlier phenobarbital discontinued as patient was getting lethargic and delirious. 3. Acute kidney injury ? Patient started on IV fluids subsequent monitoring of electrolytes ordered ? 05/12/2023; patient kidney function continues to worsen will continue with IV fluids. Patient was on vancomycin and Zosyn vancomycin discontinued given worsening kidney ?05/13/2023 consult was placed to nephrology given worsening kidney function. Renal ultrasound obtained the day prior came back unremarkable ? 05/14/2023; kidney function continues to worsen continuous monitoring ordered ? 05/15/2023 kidney function continues to worsen. ? 05/16/2023 patient kidney function appears to be stable at this point 05/16: Creatinine during the hospital stay increased from 1.5-2.93 and then stabilizing at 2.61. 05/17: Patient was started on furosemide 40 mg IV daily yesterday by night auditor. BMP from today pending. 4. Mild hyponatremia ? Secondary to chronic alcohol abuse monitoring sodium corrected to 148. 5. Coagulopathy ? Secondary to chronic liver disease from patient chronic alcohol use 6. Acute transaminitis ? Monitoring 7.? Diabetes mellitus type II -Continue patient on his home regimen in addition to Accu-Cheks before meals andat bedtime with sliding scale coverage 8.? Sick sinus syndrome ? Status post pacemaker placement 9.? History of ascending aortic dissection ? Status post repair 10.? Valvular heart disease - history of aortic valve replacement with bioprosthetic material 11.? Hypertension - Blood pressure low on admission antihypertensives held 12. Dyslipidemia -Patient is on statin therapy, continued at home dose 13. GERD ? On famotidine 14. Thrombocytopenia ? Patient has had a precipitous drop in his platelet count. No bleeding at thispoint we will continue to monitor 05/14/2023 platelet count trending up we will continue with monitoring 15. Acute on severe anemia of chronic disease ? Suspected to be secondary to anemia of chronic disorder monitoring H&H with plans to transfuse if patient becomes symptomatic or hemoglobin falls below 7 05/17: H&H 8/25%. Platelet count 233,000. 05/18: H&H dropped to 7.0/21%. 1 unit of PRBC ordered. Iron workup shows ferritin high 419, iron saturation 62% low serum iron and TIBC, suggestive of anemia of chronic disease. 16. DVT prophylaxis ? SCDs only given that patient coagulopathic 17. Physical deconditioning - Requested for PT OT eval and transition social worker to assist with discharge planning 18. Anasarca with moderate chronic protein calorie malnutrition: Patient has anasarca therefore BMI is elevated 25.8 kg/m? but patient has poor skin condition with loss of subcutaneous fat and mild decreased muscle bulk in extremities and weakness at knee and hip joints 05/13. Therefore I agree that patient has moderate chronic malnutrition. ? Suspected to be secondary to hypoalbuminemia given patient chronic liver disease. Patient did receive IV Lasix 80 mg x 1 Allergies/Procedures Done in Hospital Allergies No Known Allergies Allergy (Verified 05/09/23 13:37) Type of Care/Length of Stay Estimated LOS: Convalescent Care Less Than 30 days Type of Care Needed: Skilled Rehab Potential: Good Prognosis: Good Additional Orders/Day of Discharge Day of Discharge: 05/20/23 Dietary and Speech Recommendations Dietitian Recommendations/Changes: Carbohydrate-Controlled; Cardiac diet. Recommend fluid restriction as indicated. Will continue Glucerna BID as ordered. Discharge Plan Admission Admit Date/Time: 05/09/23 20:52 Primary Reason for Your Visit: Sepsis, MALIK Attending Provider: Refugio Rojas Primary Care Provider: Andreas Pathak VEHICLE MODIFICATION TECHNICIAN Consulting Providers: Conrado Pro; Maya Melo; Conrado Morel Discharge Orders/Prescriptions Prescriptions: New thiamine HCl (vitamin B1) [Vitamin B-1] 100 mg Tablet 100 mg PO DAILYCM Qty: 0 0RF L.acidoph,saliva-B.bif-S.therm 175 mg Capsule 2 cap PO BID Qty: 0 0RF folic acid 1 mg Tablet 1 mg PO DAILY@0800 Qty: 0 0RF insulin lispro [Humalog KwikPen Insulin] 100 unit/mL Insulin Pen See Protocol subcut ACHS Qty: 0 0RF Protocol: 4. Sliding Scale Insulin High-Med Dosing Condition: 150-199 mg/dl = 2 units Condition: 200-259 mg/dl = 4 units Condition: 260-324 mg/dl = 6 units Condition: 325-374 mg/dl = 8 units Condition: 375-409 mg/dl = 10 units Condition: 410-449 mg/dl = 11 units Condition: Greater than 449 call physician Protocol Text: - Use for Total Daily Dose of Insulin 56-80 units - Patient who are insulin resistant or septic HIGH MEDIUM DOSING ALGORITHM furosemide 40 mg tablet 40 mg PO DAILY Qty: 30 0RF spironolactone 25 mg tablet 12.5 mg PO DAILY Qty: 30 0RF Rx Instructions: Hold if serum potassium more than 5.1. dicyclomine 10 mg Capsule 20 mg PO Q6H PRN PRN (Reason: abdominal discomfort) Qty: 0 0RF pantoprazole [Protonix] 40 mg tablet,delayed release (DR/EC) 40 mg PO BID Qty: 60 2RF metoprolol succinate 25 mg Tablet Extended Release 24 Hr 25 mg PO BID 30 Days Qty: 60 0RF Continued atorvastatin 10 mg tablet 10 mg PO DAILY hydralazine 25 mg tablet 25 mg PO TID multivitamin Tablet 1 tab PO DAILY insulin glargine [Lantus Solostar U-100 Insulin] 100 unit/mL (3 mL) insulin pen 10 unit subcut 1200 Patient Comments: pt stated he has not taken lantus for several days gabapentin 300 mg Capsule 300 mg PO DAILY Patient Comments: PT STATES THEY THINK THEY ARE ON THIS MEDICATION. Held dapagliflozin propanediol [Farxiga] 10 mg Tablet 10 mg PO DAILY Hold Instructions: Hold it because of MALIK. metformin 500 mg tablet extended release 24 hr 500 mg PO BID Hold Instructions: Hold at least 1 week . Discontinue if creatinine clearance less than 30 mill per minute Patient Comments: PT STATES THEY TAKE THIS ONCE DAILY. Discontinued omeprazole 40 mg capsule,delayed release(DR/EC) 40 mg PO DAILY hydrochlorothiazide 12.5 mg tablet 12.5 mg PO DAILY amlodipine 5 mg tablet 5 mg PO DAILY ramipril 10 mg capsule 10 mg PO BID potassium chloride 10 mEq tablet,ER particles/crystals 20 meq PO DAILY Patient Comments: PT STATES THEY THINK THEY ARE ON THIS MEDICATION. famotidine 40 mg tablet 40 mg PO DAILY metoprolol succinate 50 mg tablet extended release 24 hr 50 mg PO BID Qty: 60 11RF Referrals / Follow Up: Andreas Pathak NP, [facility] [Primary Care Provider] - Disposition Disposition (needs filled in before D/C Order can be placed): [facility] 05/20/23939 <Electronically signed by Refugio Rojas MD> Cosigner Signature (if applicable): CC: ALAN Pathak; Dr. Conrado Morel MD; Dr. Conrado Pro DO; Dr. Maya Melo MD ~ [facility] Work Phone: [phone] Discharge summary Author Refugio Rojas [facility] May 20, 2023 12:37pm Note Date/Time May 20, 2023 12: 37pm [facility] Medical Records Department [address] [place] [address] Discharge Summary 05/20/23939 MR#: [id number] Acct: [id number] Name: ANALILIA MELENDREZ Rep #:[id number] : 1960 62 From: Refugio Carbajal PCP: ALAN Chahal Sta tus:ADM IN Location: [place] [id number] Providers Date of Admission: 05/09/23 Date of Discharge: 05/20/23 Primary Care Physician: ALAN Chahal Consultations 05/10/23 09:57 Consult: Counterperson / Pulmonary Medicine Routine Consulting Provider: Intensivists/Pulmonary Med Reason for Consult: sepsis EMERGENT Consult: No MD Notified: Yes Date Notified: 04/01/24 Time Notified: 09:57 Method of Notification: Text 05/13/23 08:44 Consult: Nephrology Routine Consulting Provider: Maya Melo Reason for Consult: MALIK EMERGENT Consult: No MD Notified: Yes Date Notified: 05/13/23 Time Notified: 08:44 Method of Notification: Text Comments:: Notified VEHICLE MODIFICATION TECHNICIAN Reason For Visit: ACUTE CYSTITIS, WITHOUT HEMATURIA & IMPENDING Diagnosis Discharge Diagnosis (1) MALIK (acute kidney injury): Status: Acute Code(s): N17.9 - Acute kidney failure, unspecified (2) HTN (hypertension): Status: Chronic Code(s): I10 - Essential (primary) hypertension Plan Patient is a 62-year-old gentleman with multiple comorbidities admitted with acute alcohol withdrawal. Patient had recently been discharged from the hospital To father's home after he refused to SNF . He was also found to be hypotensive with acute cystitis on admission. 1. Sepsis ? Secondary to acute cystitis as evidenced by the presence of an infection, SIRScriteria as well as evidence of endorgan dysfunction with acute kidney injury aswell as hypotension. Sepsis protocol initiated ordered lactic acid level blood cultures patient already on Rocephin patient resuscitated with IV fluids per protocol transferred to the intensive care unit in guarded ordered for PICC line. If patient does not respond to fluid resuscitation plan will be to start patient on norepinephrine. Consult placed to washer cutter 05/16: Sepsis has resolved. 2. Chronic alcohol dependence with acute alcohol withdrawal ? Admitted to regular nursing floor managed with phenobarb taper.? Patient progressed being monitored with [facility] protocol 05/16: Earlier phenobarbital discontinued as patient was getting lethargic and delirious. 3. Acute kidney injury ? Patient started on IV fluids subsequent monitoring of electrolytes ordered ? 05/12/2023; patient kidney function continues to worsen will continue with IV fluids. Patient was on vancomycin and Zosyn vancomycin discontinued given worsening kidney ?05/13/2023 consult was placed to nephrology given worsening kidney function. Renal ultrasound obtained the day prior came back unremarkable ? 05/14/2023; kidney function continues to worsen continuous monitoring ordered ? 05/15/2023 kidney function continues to worsen. ? 05/16/2023 patient kidney function appears to be stable at this point 05/16: Creatinine during the hospital stay increased from 1.5-2.93 and then stabilizing at 2.61. 05/17: Patient was started on furosemide 40 mg IV daily yesterday by night auditor. BMP from today pending. 05/18: On diuretic. Follow-up with night auditor in 2 weeks 4. Mild hyponatremia ? Secondary to chronic alcohol abuse monitoring sodium corrected to 148. 5. Coagulopathy ? Secondary to chronic liver disease from patient chronic alcohol use 6. Acute transaminitis ? Monitoring 7.? Diabetes mellitus type II -Continue patient on his home regimen in addition to Accu-Cheks before meals andat bedtime with sliding scale coverage 8.? Sick sinus syndrome ? Status post pacemaker placement 9.? History of ascending aortic dissection ? Status post repair 10.? Valvular heart disease - history of aortic valve replacement with bioprosthetic material 11.? Hypertension - Blood pressure low on admission antihypertensives held 12. Dyslipidemia -Patient is on statin therapy, continued at home dose 13. GERD ? On famotidine 14. Thrombocytopenia ? Patient has had a precipitous drop in his platelet count. No bleeding at thispoint we will continue to monitor 05/14/2023 platelet count trending up we will continue with monitoring 15. Acute on severe anemia of chronic disease ? Suspected to be secondary to anemia of chronic disorder monitoring H&H with plans to transfuse if patient becomes symptomatic or hemoglobin falls below 7 05/17: H&H 8/25%. Platelet count 233,000. 05/18: H&H dropped to 7.0/21%. 1 unit of PRBC ordered. Iron workup shows ferritin high 419, iron saturation 62% low serum iron and TIBC, suggestive of anemia of chronic disease. 05/19: Hemoglobin 8.5 after 1 unit of PRBC transfusion. Right arm PICC line not working therefore pulled out and discontinued. Clinically right arm and axillary region is soft and no induration therefore clinically DVT not suspected. 16. DVT prophylaxis ? SCDs only given that patient coagulopathic 17. Physical deconditioning - Requested for PT OT eval and transition social worker to assist with discharge planning 18. Anasarca with moderate chronic protein calorie malnutrition: Patient has anasarca therefore BMI is elevated 25.8 kg/m? but patient has poor skin condition with loss of subcutaneous fat and mild decreased muscle bulk in extremities and weakness at knee and hip joints 05/13. Therefore I agree that patient has moderate chronic malnutrition. ? Suspected to be secondary to hypoalbuminemia given patient chronic liver disease. Patient did receive IV Lasix 80 mg x 1 05/19: Patient is discharged on furosemide 40 mg daily and spironolactone 12.5 mgdaily with holding parameters. Advised to check lab, BMP twice weekly. Discharge medication reconciliation done. Discharge follow-up instructions completed. Discharge process discussed with the patient and all questions wereanswered to patient's satisfaction. Follow with PCP in 1 to 2 weeks Total time spent, exact 35 minutes on discharge meds reconciliation, examination, coordination of care with nurses and ancillary staff, review of imaging and blood test and discussion with the patient on follow-up instructions. Medications at Discharge Home Medications atorvastatin 10 mg tablet 10 mg PO DAILY CHOLESTEROL 10/17/20 hydralazine 25 mg tablet 25 mg PO TID BP 10/17/20 dapagliflozin propanediol 10 mg tablet (Farxiga) 10 mg PO DAILY DIABETES 09/30/21 multivitamin 1 tab PO DAILY SUPPLEMENT 11/11/21 gabapentin 300 mg capsule 300 mg PO DAILY NEUROPATHY 11/14/22 insulin glargine 100 unit/mL (3 mL) subcutaneous pen (Lantus Solostar U-100 Insulin) 10 unit subcut 1200 DIABETES 11/14/22 metformin 500 mg tablet,extended release 24 hr 500 mg PO BID DIABETES 11/15/22 L.acidophil,salivari-Bifido bifidum-Strep thermoph 175 mg capsule 2 cap PO BID #0 caps 05/20/23 dicyclomine 10 mg capsule 20 mg (2 x 10 mg) PO Q6H PRN PRN abdominal discomfort #0 caps 05/20/23 folic acid 1 mg tablet 1 mg PO DAILY@0800 #0 tabs 05/20/23 furosemide 40 mg tablet 40 mg PO DAILY #30 tabs 05/20/23 insulin lispro 100 unit/mL subcutaneous pen (Humalog KwikPen (U-100) Insulin) See Protocol subcut ACHS #0 mL 05/20/23 metoprolol succinate 25 mg tablet,extended release 24 hr 25 mg PO BID 30 days #60 tabs 05/20/23 pantoprazole 40 mg tablet,delayed release (Protonix) 40 mg PO BID #60 tabs 05/20/23 spironolactone 25 mg tablet 12.5 mg (1/2 x 25 mg) PO DAILY #30 tabs 05/20/23 thiamine HCl (vitamin B1) 100 mg tablet (Vitamin B-1) 100 mg PO DAILYCM #0 tabs 05/20/23 Physical Exam Narrative Seen and examined. No acute issues overnight but patient feels very weak. Patient had 1 unit of PRBC yesterday. Hemoglobin increased appropriately to 8.5 g. Right arm PICC line not working, order to discontinue it No change in swelling of upper and lower extremities. Physical exam: General: Alert, Oriented x3, Cooperative HEENT: Atraumatic, PERRLA, EOMI, Normocephalic Oral: Oral mucosa moist. No Gingival or Mucosal Lesions/ Ulcerations Neck: Supple, No JVD, Negative Carotid Bruits Chest wall/Lungs: Air entry diminished in bilateral lung bases. No crepitation/rhonchi Cardiovascular: Paced rhythm. Mechanical valve click. Systolic murmur. Normal S1, Normal S2 Abdomen: Bowel Sounds Present, Soft, Non Tender, Non-Distended : No dysuria. No renal angle tenderness. No suprapubic tenderness. Extremities: Right arm PICC line. Bilateral lower extremity and upper extremities subcutaneous edema. Capillary Refill Less than 3 Seconds Skin: Subcutaneous ecchymosis/bruising probably from PICC line. No palpable induration/hardness. Musculoskeletal: No Tenderness to Palpation of Joints or Extremities. ROM restricted muscle strength 4/5 and both knees and hip joints Neurological: Cranial nerves II-XII grossly intact, DTR 2+/4. No acute focal neurological deficit. Psych/Mental Status: Flat affect. Weight / BMI Weight Weight: 185 lb 6.54 oz Body Mass Index (BMI) 25.8 ABG / Lab / Microbiology Data 05/20/23 06:10 05/20/23 06:10 Laboratory: Laboratory Results - last 24 hr 05/19/23 07:50: Blood Type O NEGATIVE, Antibody Screen NEGATIVE, Crossmatch See Detail 05/19/23 11:21: POC Glucose 248 H 05/19/23 16:11: POC Glucose 253 H 05/19/23 21:05: POC Glucose 323 H 05/20/23 06:10: WBC 12.2 H, RBC 2.59 L, Hgb 8.5 L, Hct 26.4 L, MCV 101.9 H, MCH 32.8 H, MCHC 32.2, RDW Std Deviation 68.9 H, RDW Coeff of Kalpana 18.5 H, Plt Count 264, MPV 11.9, Immature Gran % (Auto) 0.800, Neut % (Auto) 82.4 H, Lymph % (Auto) 9.8 L, Erath % (Auto) 5.6, Eos % (Auto) 0.7, Baso % (Auto) 0.7, Absolute Neuts (auto) 10.1 H, Absolute Lymphs (auto) 1.20, Nucleated RBC % 0, Differential Comment SCANNED, Anisocytosis 1+, Sodium 139, Potassium 4.7, Chloride 109 H, Carbon Dioxide 28.0, BUN 19 H, Creatinine 2.08 H, Estim Creat Clear Calc 40.22, Est GFR (MDRD) Af Amer 42 L, Est GFR (MDRD) Non-Af 35 L, BUN/Creatinine Ratio 9.1 L, Glucose 145 H, Calcium 7.8 L, Phosphorus 3.1, Albumin 1.4 L 05/20/23 06:26: POC Glucose 141 H Microbiology: Microbiology 05/16/23 12:35 Stool Stool Occult Blood (IBIS) - Final Occult Blood Positive 05/10/23 12:40 Blood Culture (Wb) - Arm Left Blood Culture - Final No growth in 5 days. 05/10/23 10:35 Blood Culture (Wb) - Left Hand Blood Culture - Final No growth in 5 days. 05/10/23 17:30 Urine Catheter - Catheter Urine Culture - Final Escherichia coli 05/12/23 17:50 Stool Stool Occult Blood (IBIS) - Final Occult Blood Positive 05/09/23 21:31 Urine, Clean Catch Legionella Antigen - Final 05/09/23 21:31 Urine, Clean Catch Streptococcus pneumoniae Antigen (M - Final Meaningful Use Info Meaningful Use Diagnoses (Choose all that apply): None applicable Discharge Plan Admission Admit Date/Time: 05/09/23 20:52 Primary Reason for Your Visit: Sepsis, MALIK Attending Provider: Refugio Rojas Primary Care Provider: Andreas Pathak NP Consulting Providers: Conrado Pro; Maya Melo; Conrado Morel Discharge Orders/Prescriptions Prescriptions: New thiamine HCl (vitamin B1) [Vitamin B-1] 100 mg Tablet 100 mg PO DAILYCM Qty: 0 0RF L.acidoph,saliva-B.bif-S.therm 175 mg Capsule 2 cap PO BID Qty: 0 0RF folic acid 1 mg Tablet 1 mg PO DAILY@0800 Qty: 0 0RF insulin lispro [Humalog KwikPen Insulin] 100 unit/mL Insulin Pen See Protocol subcut ACHS Qty: 0 0RF Protocol: 4. Sliding Scale Insulin High-Med Dosing Condition: 150-199 mg/dl = 2 units Condition: 200-259 mg/dl = 4 units Condition: 260-324 mg/dl = 6 units Condition: 325-374 mg/dl = 8 units Condition: 375-409 mg/dl = 10 units Condition: 410-449 mg/dl = 11 units Condition: Greater than 449 call physician Protocol Text: - Use for Total Daily Dose of Insulin 56-80 units - Patient who are insulin resistant or septic HIGH MEDIUM DOSING ALGORITHM furosemide 40 mg tablet 40 mg PO DAILY Qty: 30 0RF spironolactone 25 mg tablet 12.5 mg PO DAILY Qty: 30 0RF Rx Instructions: Hold if serum potassium more than 5.1. dicyclomine 10 mg Capsule 20 mg PO Q6H PRN PRN (Reason: abdominal discomfort) Qty: 0 0RF pantoprazole [Protonix] 40 mg tablet,delayed release (DR/EC) 40 mg PO BID Qty: 60 2RF metoprolol succinate 25 mg Tablet Extended Release 24 Hr 25 mg PO BID 30 Days Qty: 60 0RF Continued atorvastatin 10 mg tablet 10 mg PO DAILY hydralazine 25 mg tablet 25 mg PO TID multivitamin Tablet 1 tab PO DAILY insulin glargine [Lantus Solostar U-100 Insulin] 100 unit/mL (3 mL) insulin pen 10 unit subcut 1200 Patient Comments: pt stated he has not taken lantus for several days gabapentin 300 mg Capsule 300 mg PO DAILY Patient Comments: PT STATES THEY THINK THEY ARE ON THIS MEDICATION. Held dapagliflozin propanediol [Farxiga] 10 mg Tablet 10 mg PO DAILY Hold Instructions: Hold it because of MALIK. metformin 500 mg tablet extended release 24 hr 500 mg PO BID Hold Instructions: Hold at least 1 week . Discontinue if creatinine clearance less than 30 mill per minute Patient Comments: PT STATES THEY TAKE THIS ONCE DAILY. Discontinued omeprazole 40 mg capsule,delayed release(DR/EC) 40 mg PO DAILY hydrochlorothiazide 12.5 mg tablet 12.5 mg PO DAILY amlodipine 5 mg tablet 5 mg PO DAILY ramipril 10 mg capsule 10 mg PO BID potassium chloride 10 mEq tablet,ER particles/crystals 20 meq PO DAILY Patient Comments: PT STATES THEY THINK THEY ARE ON THIS MEDICATION. famotidine 40 mg tablet 40 mg PO DAILY metoprolol succinate 50 mg tablet extended release 24 hr 50 mg PO BID Qty: 60 11RF Referrals / Follow Up: Maya Melo MD [Med Staff - Consulting] - Within 2 Weeks Denys Pearson MD [Med Staff - Active Staff] - Within 1 Month (History of ascending aortic dissection, sick sinus syndrome status post pacemaker and valvular heart disease) Andreas Pathak NP, VEHICLE MODIFICATION TECHNICIAN-C [Primary Care Provider] - Disposition Disposition (needs filled in before D/C Order can be placed): [facility] Facility Charges/Coding Visit Charges Inpatient E&M: 31595 Disch Hosp >30min 05/20/23 1237 <Electronically signed by Refugio Rojas MD> Cosigner Signature (if applicable): CC: ALAN Pathak; Dr. Refugio Rojas MD~ Signed [facility] Work Phone: [phone]) [phone] Progress note Author Refugio Rojas [facility] May 19, 2023 2:23pm Note Date/Time May 19, 2023 7:3 7am [facility] Medical Records Department [address] [place] [address] Progress Note - Hospitalist 05/19/23 0724 MR#: [id number] Acct: [id number] Name: ANALILIA MELENDREZ JAMARI Rep #:[id number] : 1960 62 From: Refugio Carbajal PCP: ALAN Chahal Sta tus:ADM IN Location: [place] [address] Reason for Visit Reason for Visit: Diagnoses Sepsis, unspecified organism (05/09/23) Unspecified severe protein-calorie malnutrition (05/09/23) Alcohol abuse, uncomplicated (05/09/23) Alcohol dependence, uncomplicated (05/09/23) Alcohol use, unspecified with withdrawal, uncomplicated (05/09/23) Essential (primary) hypertension (05/09/23) Alcohol-induced chronic pancreatitis (05/09/23) Acute kidney failure, unspecified (05/09/23) Acute cystitis without hematuria (05/09/23) Patient's noncompliance with other medical treatment and regimen due to unspecified reason (05/09/23) Objective Data Objective Data Vital Signs: Vital Signs Temp Pulse Resp BP Pulse Ox O2 Del Method O2 Flow Rate 98.1 F 84 16 146/94 H 94 Room Air 2 05/19/23 02:15 05/19/23 02:15 05/19/23 02:15 05/19/23 02:15 05/19/23 02:15 05/19/23 02:15 05/18/23 07:20 FiO2 25 05/15/23 11:10 Oxygen Flow Rate (L/min) 2 Oxygen Delivery Method Room Air Weight: 185 lb 3.013 oz Body Mass Index (BMI) 25.8 Intake & Output: Intake and Output for Last 24 Hours 05/17/23 05/18/23 05/19/23 23:59 23:59 23:59 Intake Total 860 / 860 1870 / 1870 Output Total 5100 / 5100 4900 / 5350 1050 / 1050 Balance -4240 / -4240 -3030 / -3480 -1050 / -1050 Lab / Micro Data 05/19/23 05:39 05/19/23 05:39 Labs: Laboratory Results - last 24 hr 05/14/23 07:28: Diff Path Review Reviewed 05/18/23 05:00: Sodium 147 H, Potassium 5.1, Chloride 117 H, Carbon Dioxide 22.0, Anion Gap 8, BUN 20 H, Creatinine 2.47 H, Estim Creat Clear Calc 33.87, Est GFR (MDRD) Af Amer 34 L, Est GFR (MDRD) Non-Af 29 L, BUN/Creatinine Ratio 8.1 L, Glucose 117 H, Calcium 8.2 L 05/18/23 10:53: POC Glucose 225 H 05/18/23 17:02: POC Glucose 310 H 05/18/23 20:15: POC Glucose 329 H 05/19/23 05:39: WBC 12.4 H, RBC 2.01 L, Hgb 7.0 L, Hct 21.5 L, MCV 107.0 H, MCH 34.8 H, MCHC 32.6, RDW Std Deviation 61.3 H, RDW Coeff of Kalpana 15.7 H, Plt Count 230, MPV 11.3, Immature Gran % (Auto) 0.900, Neut % (Auto) 85.7 H, Lymph % (Auto) 7.7 L, Erath % (Auto) 4.5, Eos % (Auto) 0.6, Baso % (Auto) 0.6, Absolute Neuts (auto) 10.6 H, Absolute Lymphs (auto) 0.96, Nucleated RBC % 0, Sodium 140, Potassium 4.7, Chloride 110 H, Carbon Dioxide 28.0, Anion Gap 2 L, BUN 19 H, Creatinine 2.09 H, Estim Creat Clear Calc 40.03, Est GFR (MDRD) Af Amer 42 L, Est GFR (MDRD) Non-Af 35 L, BUN/Creatinine Ratio 9.1 L, Glucose 98, Calcium 7.5 L 05/19/23 06:30: POC Glucose 95 Micro: Microbiology 05/16/23 12:35 Stool Stool Occult Blood (IBIS) - Final Occult Blood Positive 05/10/23 12:40 Blood Culture (Wb) - Arm Left Blood Culture - Final No growth in 5 days. 05/10/23 10:35 Blood Culture (Wb) - Left Hand Blood Culture - Final No growth in 5 days. 05/10/23 17:30 Urine Catheter - Catheter Urine Culture - Final Escherichia coli 05/12/23 17:50 Stool Stool Occult Blood (IBIS) - Final Occult Blood Positive 05/09/23 21:31 Urine, Clean Catch Legionella Antigen - Final 05/09/23 21:31 Urine, Clean Catch Streptococcus pneumoniae Antigen (M - Final Rhythm Strip Rhythm Strip: Sinus Rhythm Physical Exam Narrative Seen and examined. No acute issues overnight but patient feels very weak. H&H dropped to 7.0 in the morning today. No change in swelling of upper and lower extremities. Physical exam: General: Alert, Oriented x3, Cooperative HEENT: Atraumatic, PERRLA, EOMI, Normocephalic Oral: Oral mucosa moist. No Gingival or Mucosal Lesions/ Ulcerations Neck: Supple, No JVD, Negative Carotid Bruits Chest wall/Lungs: Air entry diminished in bilateral lung bases. No crepitation/rhonchi Cardiovascular: Paced rhythm. Mechanical valve click. Systolic murmur. Normal S1, Normal S2 Abdomen: Bowel Sounds Present, Soft, Non Tender, Non-Distended : No dysuria. No renal angle tenderness. No suprapubic tenderness. Extremities: Right arm PICC line. Bilateral lower extremity and upper extremities subcutaneous edema. Capillary Refill Less than 3 Seconds Skin: Subcutaneous ecchymosis/bruising probably from PICC line. No palpable induration/hardness. Musculoskeletal: No Tenderness to Palpation of Joints or Extremities. ROM restricted muscle strength 4/5 and both knees and hip joints Neurological: Cranial nerves II-XII grossly intact, DTR 2+/4. No acute focal neurological deficit. Psych/Mental Status: Flat affect. Assessment & Plan Assessment/Plan (1) Sepsis: PLAN: Plan Patient is a 62-year-old gentleman with multiple comorbidities admitted with acute alcohol withdrawal. Patient had recently been discharged from the hospital To father's home after he refused to SNF . He was also found to be hypotensive with acute cystitis on admission. 1. Sepsis ? Secondary to acute cystitis as evidenced by the presence of an infection, SIRScriteria as well as evidence of endorgan dysfunction with acute kidney injury aswell as hypotension. Sepsis protocol initiated ordered lactic acid level blood cultures patient already on Rocephin patient resuscitated with IV fluids per protocol transferred to the intensive care unit in guarded ordered for PICC line. If patient does not respond to fluid resuscitation plan will be to start patient on norepinephrine. Consult placed to washer cutter 05/16: Sepsis has resolved. 2. Chronic alcohol dependence with acute alcohol withdrawal ? Admitted to regular nursing floor managed with phenobarb taper.? Patient progressed being monitored with [facility] protocol 05/16: Earlier phenobarbital discontinued as patient was getting lethargic and delirious. 3. Acute kidney injury ? Patient started on IV fluids subsequent monitoring of electrolytes ordered ? 05/12/2023; patient kidney function continues to worsen will continue with IV fluids. Patient was on vancomycin and Zosyn vancomycin discontinued given worsening kidney ?05/13/2023 consult was placed to nephrology given worsening kidney function. Renal ultrasound obtained the day prior came back unremarkable ? 05/14/2023; kidney function continues to worsen continuous monitoring ordered ? 05/15/2023 kidney function continues to worsen. ? 05/16/2023 patient kidney function appears to be stable at this point 05/16: Creatinine during the hospital stay increased from 1.5-2.93 and then stabilizing at 2.61. 05/17: Patient was started on furosemide 40 mg IV daily yesterday by night auditor. BMP from today pending. 4. Mild hyponatremia ? Secondary to chronic alcohol abuse monitoring sodium corrected to 148. 5. Coagulopathy ? Secondary to chronic liver disease from patient chronic alcohol use 6. Acute transaminitis ? Monitoring 7.? Diabetes mellitus type II -Continue patient on his home regimen in addition to Accu-Cheks before meals andat bedtime with sliding scale coverage 8.? Sick sinus syndrome ? Status post pacemaker placement 9.? History of ascending aortic dissection ? Status post repair 10.? Valvular heart disease - history of aortic valve replacement with bioprosthetic material 11.? Hypertension - Blood pressure low on admission antihypertensives held 12. Dyslipidemia -Patient is on statin therapy, continued at home dose 13. GERD ? On famotidine 14. Thrombocytopenia ? Patient has had a precipitous drop in his platelet count. No bleeding at thispoint we will continue to monitor 05/14/2023 platelet count trending up we will continue with monitoring 15. Acute on severe anemia of chronic disease ? Suspected to be secondary to anemia of chronic disorder monitoring H&H with plans to transfuse if patient becomes symptomatic or hemoglobin falls below 7 05/17: H&H 8/25%. Platelet count 233,000. 05/18: H&H dropped to 7.0/21%. 1 unit of PRBC ordered. Iron workup shows ferritin high 419, iron saturation 62% low serum iron and TIBC, suggestive of anemia of chronic disease. 16. DVT prophylaxis ? SCDs only given that patient coagulopathic 17. Physical deconditioning - Requested for PT OT eval and transition social worker to assist with discharge planning 18. Anasarca with moderate chronic protein calorie malnutrition: Patient has anasarca therefore BMI is elevated 25.8 kg/m? but patient has poor skin condition with loss of subcutaneous fat and mild decreased muscle bulk in extremities and weakness at knee and hip joints 05/13. Therefore I agree that patient has moderate chronic malnutrition. ? Suspected to be secondary to hypoalbuminemia given patient chronic liver disease. Patient did receive IV Lasix 80 mg x 1 Charges/Coding Visit Charges Inpatient E&M: 45479 Subs Hosp L2 05/19/23 9785 <Electronically signed by Refugio Rojas MD> Cosigner Signature (if applicable): CC: ~ Signed [facility] Work Phone: 1(907) 382-359204-09-2024 Progress note Author Maya Melo [facility] May 18, 2023 7:25pm Note Date/Time May 18, 2023 7:25 pm [facility] Medical Records Department [address] [place] [address] Progress Note - Nephrology 05/18/231922 MR#: [id number] Acct: [id number] Name: ANALILIA MELENDREZ Rep #:[id number] : 1960 62 From: Maya rivers MD PCP: Andreas Pathak, VEHICLE MODIFICATION TECHNICIANMiahC Sta tus:ADM IN Location: [place] [address] Subjective Subjective No new complaints. Good urine output. Objective Data Objective Data Vital Signs: Vital Signs Temp Pulse Resp BP Pulse Ox O2 Del Method O2 Flow Rate 98.2 F 78 16 134/91 H 94 Room Air 2 05/18/23 17:06 05/18/23 17:06 05/18/23 17:06 05/18/23 17:06 05/18/23 17:06 05/18/23 17:06 05/18/23 07:20 FiO2 25 05/15/23 11:10 Oxygen Flow Rate (L/min) 2 Oxygen Delivery Method Room Air Weight: 87.1 kg Body Mass Index (BMI) 26.7 Intake & Output: Intake and Output for Last 24 Hours 05/16/23 05/17/23 05/18/23 23:59 23:59 23:59 Intake Total 2782.50 / 2782.50 860 / 860 1760 / 1760 Output Total 3200 / 4500 5100 / 5100 4500 / 4500 Balance -417.50 / -1717.50 -4240 / -4240 -2740 / -2740 Lab / Micro Data 05/18/23 05:00 05/18/23 05:00 Labs: Laboratory Results - last 24 hr 05/14/23 07:28: Diff Path Review Reviewed 05/17/23 18:08: POC Glucose 245 H 05/17/23 20:54: POC Glucose 364 H 05/18/23 05:00: WBC 14.4 H, RBC 2.35 L, Hgb 8.0 L, Hct 25.1 L, MCV 106.8 H, MCH 34.0 H, MCHC 31.9 L, RDW Std Deviation 61.1 H, RDW Coeff of Kalpana 15.9 H, Plt Count 233, MPV 11.4, Immature Gran % (Auto) 1.600 H, Neut % (Auto) 85.0 H, Lymph% (Auto) 7.8 L, Erath % (Auto) 4.4, Eos % (Auto) 0.6, Baso % (Auto) 0.6, AbsoluteNeuts (auto) 12.3 H, Absolute Lymphs (auto) 1.12, Nucleated RBC % 0, Sodium 147 H, Potassium 5.1, Chloride 117 H, Carbon Dioxide 22.0, Anion Gap 8, BUN 20 H, Creatinine 2.47 H, Estim Creat Clear Calc 33.87, Est GFR (MDRD) Af Amer 34 L, Est GFR (MDRD) Non-Af 29 L, BUN/Creatinine Ratio 8.1 L, Glucose 117 H, Calcium 8.2 L 05/18/23 06:24: POC Glucose 100 05/18/23 10:53: POC Glucose 225 H 05/18/23 17:02: POC Glucose 310 H Micro: Microbiology 05/16/23 12:35 Stool Stool Occult Blood (IBIS) - Final Occult Blood Positive 05/10/23 12:40 Blood Culture (Wb) - Arm Left Blood Culture - Final No growth in 5 days. 05/10/23 10:35 Blood Culture (Wb) - Left Hand Blood Culture - Final No growth in 5 days. 05/10/23 17:30 Urine Catheter - Catheter Urine Culture - Final Escherichia coli 05/12/23 17:50 Stool Stool Occult Blood (IBIS) - Final Occult Blood Positive 05/09/23 21:31 Urine, Clean Catch Legionella Antigen - Final 05/09/23 21:31 Urine, Clean Catch Streptococcus pneumoniae Antigen (M - Final Rhythm Strip Rhythm Strip: Sinus Rhythm Physical Exam Narrative Alert and oriented, no apparent distress S1, S2, RRR Lung sounds clear anteriorly. No wheezes rhonchi or rales noted Abdomen soft, nontender Edema noted bilateral lower legs and arms Indwelling Gillis with clear urine? Const alert, no apparent distress and average body habitus Orientation / Consciousness: oriented to person and confused HEENT normocephalic Resp clear to auscultation bilaterally Auscultation: diminished lung sounds bilateral lower Cardio no murmurs GI non-tender Auscultation: normoactive bowel sounds Palpation: ascites external exam normal Neuro Sensorium / Orientation: awake Psych cooperative Assessment & Plan Assessment/Plan (1) MALIK (acute kidney injury): (2) HTN (hypertension): PLAN: Plan Impression/Plan: The patient is a 62-year-old man with past history of type 2 diabetes mellitus, hypertension, CAD, aortic valve replacement, sick sinus syndrome status post PPM, polysubstance use disorder, and hyperlipidemia. The patient presents to the hospital on 05/09/2023 with abdominal pain. The patient was diagnosed with alcohol withdrawal and severe sepsis attributed to right lower lobe pneumonia. Nephrology is following for acute kidney injury. - Acute kidney injury with normal baseline serum creatinine (1.00 mg/dL (November2022)). MALIK secondary to ischemic ATN related to sepsis. Serum creatinine was 1.50 mg/dL on presentation on 05/09/2023 and peaked at 2.93 mg/dL on 05/14/2023. Creatinine is improving. Continue to hold ramipril, hydrochlorothiazide, metformin. - Hypertension. Blood pressure is acceptable Baseline creatinine was normal as of November last year. Came in with a creatinine of 1.5, peak creatinine 2.9. Improving slowly. Renal ultrasound unremarkable. Urine analysis with protein, WBC, RBC consistent with UTI. Urineculture shows E. coli. Antibiotics as per primary. Has significant edema overall. He says he has had this for several days now. Tolerating Lasix okay so far. Good urine output. 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 Alert. No overnight events. Objective Data Objective Data Vital Signs: Vital Signs Temp Pulse Resp BP Pulse Ox O2 Del Method O2 Flow Rate 97.6 F L 68 20 H 138/85 H 92 Nasal Cannula 2 05/17/23 07:45 05/17/23 08:06 05/17/23 07:45 05/17/23 07:45 05/17/23 08:18 05/17/23 08:18 05/17/23 08:18 FiO2 25 05/15/23 11:10 Oxygen Flow Rate (L/min) 2 Oxygen Delivery Method Nasal Cannula Weight: 84.8 kg Body Mass Index (BMI) 26.0 Intake & Output: Intake and Output for Last 24 Hours 05/15/23 05/16/23 05/17/23 23:59 23:59 23:59 Intake Total 2224.17 / 2664.17 2782.50 / 2782.50 200 / 200 Output Total 1475 / 1925 3200 / 4500 2200 / 2200 Balance 749.17 / 739.17 -417.50 / -1717.50 -1999 / -1999 Lab / Micro Data 05/17/23 06:15 05/17/23 06:15 Labs: Laboratory Results - last 24 hr 05/16/23 11:05: POC Glucose 193 H 05/16/23 17:02: POC Glucose 185 H 05/16/23 20:55: POC Glucose 272 H 05/17/23 06:15: WBC 12.3 H, RBC 2.06 L, Hgb 7.2 L, Hct 22.1 L, MCV 107.3 H, MCH 35.0 H, MCHC 32.6, RDW Std Deviation 62.1 H, RDW Coeff of Kalpana 16.0 H, Plt Count 175, MPV 11.6, Immature Gran % (Auto) 1.900 H, Neut % (Auto) 83.3 H, Lymph % (Auto) 8.6 L, Erath % (Auto) 4.6, Eos % (Auto) 1.1, Baso % (Auto) 0.5, Absolute Neuts (auto) 10.2 H, Absolute Lymphs (auto) 1.06, Nucleated RBC % 0, Sodium 141,Potassium 4.6, Chloride 109 H, Carbon Dioxide 29.0, Anion Gap 3 L, BUN 23 H, Creatinine 2.61 H, Estim Creat Clear Calc 32.06, Est GFR (MDRD) Af Amer 32 L, Est GFR (MDRD) Non-Af 27 L, BUN/Creatinine Ratio 8.8 L, Glucose 128 H, Calcium 7.9 L, Phosphorus 2.9, Iron 28 L, TIBC 45 L, Iron Saturation 62.2 H, Ferritin 419 H, Vitamin B12 > 2000 H 05/17/23 06:27: POC Glucose 126 H Micro: Microbiology 05/16/23 12:35 Stool Stool Occult Blood (IBIS) - Final Occult Blood Positive 05/10/23 12:40 Blood Culture (Wb) - Arm Left Blood Culture - Final No growth in 5 days. 05/10/23 10:35 Blood Culture (Wb) - Left Hand Blood Culture - Final No growth in 5 days. 05/10/23 17:30 Urine Catheter - Catheter Urine Culture - Final Escherichia coli 05/12/23 17:50 Stool Stool Occult Blood (IBIS) - Final Occult Blood Positive 05/09/23 21:31 Urine, Clean Catch Legionella Antigen - Final 05/09/23 21:31 Urine, Clean Catch Streptococcus pneumoniae Antigen (M - Final Rhythm Strip Rhythm Strip: Sinus Rhythm Physical Exam Narrative Alert and oriented, no apparent distress S1, S2, RRR Lung sounds clear anteriorly. No wheezes rhonchi or rales noted Abdomen soft, nontender Edema noted bilateral lower legs and arms Indwelling Gillis with clear urine? Assessment & Plan Assessment/Plan (1) MALIK (acute kidney injury): (2) HTN (hypertension): PLAN: Plan Impression/Plan: The patient is a 62-year-old man with past history of type 2 diabetes mellitus, hypertension, CAD, aortic valve replacement, sick sinus syndrome status post PPM, polysubstance use disorder, and hyperlipidemia. The patient presents to the hospital on 05/09/2023 with abdominal pain. The patient was diagnosed with alcohol withdrawal and severe sepsis attributed to right lower lobe pneumonia. Nephrology is following for acute kidney injury. - Acute kidney injury with normal baseline serum creatinine (1.00 mg/dL (November2022)). MALIK secondary to ischemic ATN related to sepsis. Serum creatinine was 1.50 mg/dL on presentation on 05/09/2023 and peaked at 2.93 mg/dL on 05/14/2023. Serum creatinine slight improvement to 2.61 mg/dL today. Potassium and bicarb normal. Urine output has picked up. Patient is edematous,HCTZ was on hold due to MALIK, renal function improving therefore we will restart low-dose diuretic Continue to hold ramipril, hydrochlorothiazide, metformin. There is no need for kidney replacement therapy. Continue to encourage oral intake. Labs ordered for a.m. - Hypertension. BP is reasonably controlled off of ramipril and hydrochlorothiazide. These medications are on hold because of MALIK. Currently onmetoprolol succinate. 05/17/23 1007 <Electronically signed by Estefany MAY> Cosigner Signature (if applicable): 05/18/23 1028 <Electronically signed by Maya Melo MD> CC: ~ Signed [facility] Work Phone: 1(118) 828-454704-09-2024 Progress note Author Refugio Rojas [facility] May 18, 2023 8:36am Note Date/Time May 18, 2023 8:31 am [facility] Medical Records Department [address] [place] [address] Progress Note - Hospitalist 05/18/23 0828 MR#: [id number] Acct: [id number] Name: DARRINDARNELLANALILIA JAMARI Rep #:[id number] : 1960 62 From: Refugio Carbajal PCP: ALAN Chahal tus:ADM IN Location: [place] [address] Reason for Visit Reason for Visit: Diagnoses Sepsis, unspecified organism (05/09/23) Unspecified severe protein-calorie malnutrition (05/09/23) Alcohol abuse, uncomplicated (05/09/23) Alcohol dependence, uncomplicated (05/09/23) Alcohol use, unspecified with withdrawal, uncomplicated (05/09/23) Essential (primary) hypertension (05/09/23) Alcohol-induced chronic pancreatitis (05/09/23) Acute kidney failure, unspecified (05/09/23) Acute cystitis without hematuria (05/09/23) Patient's noncompliance with other medical treatment and regimen due to unspecified reason (05/09/23) Objective Data Objective Data Vital Signs: Vital Signs Temp Pulse Resp BP Pulse Ox O2 Del Method O2 Flow Rate 97.9 F 72 16 136/124 H 98 Nasal Cannula 2 05/18/23 02:55 05/18/23 02:55 05/18/23 02:55 05/18/23 02:55 05/18/23 02:55 05/18/23 02:55 05/18/23 02:55 FiO2 25 05/15/23 11:10 Oxygen Flow Rate (L/min) 2 Oxygen Delivery Method Nasal Cannula Weight: 192 lb 0.362 oz Body Mass Index (BMI) 26.7 Intake & Output: Intake and Output for Last 24 Hours 05/16/23 05/17/23 05/18/23 23:59 23:59 23:59 Intake Total 2782.50 / 2782.50 860 / 860 0 / 0 Output Total 3200 / 4500 5100 / 5100 1100 / 1100 Balance -417.50 / -1717.50 -4240 / -4240 -1100 / -1100 Lab / Micro Data 05/18/23 05:00 05/17/23 06:15 Labs: Laboratory Results - last 24 hr 05/17/23 06:15: Vitamin B12 > 2000 H 05/17/23 11:03: POC Glucose 272 H 05/17/23 18:08: POC Glucose 245 H 05/17/23 20:54: POC Glucose 364 H 05/18/23 05:00: WBC 14.4 H, RBC 2.35 L, Hgb 8.0 L, Hct 25.1 L, MCV 106.8 H, MCH 34.0 H, MCHC 31.9 L, RDW Std Deviation 61.1 H, RDW Coeff of Kalpana 15.9 H, Plt Count 233, MPV 11.4, Immature Gran % (Auto) 1.600 H, Neut % (Auto) 85.0 H, Lymph% (Auto) 7.8 L, Erath % (Auto) 4.4, Eos % (Auto) 0.6, Baso % (Auto) 0.6, AbsoluteNeuts (auto) 12.3 H, Absolute Lymphs (auto) 1.12, Nucleated RBC % 0 05/18/23 06:24: POC Glucose 100 Micro: Microbiology 05/16/23 12:35 Stool Stool Occult Blood (IBIS) - Final Occult Blood Positive 05/10/23 12:40 Blood Culture (Wb) - Arm Left Blood Culture - Final No growth in 5 days. 05/10/23 10:35 Blood Culture (Wb) - Left Hand Blood Culture - Final No growth in 5 days. 05/10/23 17:30 Urine Catheter - Catheter Urine Culture - Final Escherichia coli 05/12/23 17:50 Stool Stool Occult Blood (IBIS) - Final Occult Blood Positive 05/09/23 21:31 Urine, Clean Catch Legionella Antigen - Final 05/09/23 21:31 Urine, Clean Catch Streptococcus pneumoniae Antigen (M - Final Rhythm Strip Rhythm Strip: Sinus Rhythm Physical Exam Narrative Seen and examined. No acute issues overnight but patient feels very weak. Patient has similar swelling of upper and lower extremities. Physical exam: General: Alert, Oriented x3, Cooperative HEENT: Atraumatic, PERRLA, EOMI, Normocephalic Oral: Oral mucosa dry. No Gingival or Mucosal Lesions/ Ulcerations Neck: Supple, No JVD, Negative Carotid Bruits Chest wall/Lungs: Air entry diminished in bilateral lung bases. No crepitation/rhonchi Cardiovascular: Paced rhythm. Mechanical valve click. Systolic murmur. Normal S1, Normal S2 Abdomen: Bowel Sounds Present, Soft, Non Tender, Non-Distended : No dysuria. No renal angle tenderness. No suprapubic tenderness. Extremities: Right arm PICC line bilateral lower extremity and upper extremity subcutaneous edema. Capillary Refill Less than 3 Seconds Skin: Subcutaneous ecchymosis/bruising probably from PICC line. No palpable induration/hardness. Musculoskeletal: No Tenderness to Palpation of Joints or Extremities. ROM restricted muscle strength 4/5 and both knees and hip joints Neurological: Cranial nerves II-XII grossly intact, DTR 2+/4. No acute focal neurological deficit. Psych/Mental Status: Flat affect. Assessment & Plan Assessment/Plan (1) Sepsis: PLAN: Plan Patient is a 62-year-old gentleman with multiple comorbidities admitted with acute alcohol withdrawal. Patient had recently been discharged from the hospital To father's home after he refused to SNF . He was also found to be hypotensive with acute cystitis on admission. 1. Sepsis ? Secondary to acute cystitis as evidenced by the presence of an infection, SIRScriteria as well as evidence of endorgan dysfunction with acute kidney injury aswell as hypotension. Sepsis protocol initiated ordered lactic acid level blood cultures patient already on Rocephin patient resuscitated with IV fluids per protocol transferred to the intensive care unit in guarded ordered for PICC line. If patient does not respond to fluid resuscitation plan will be to start patient on norepinephrine. Consult placed to washer cutter 05/16: Sepsis has resolved. 2. Chronic alcohol dependence with acute alcohol withdrawal ? Admitted to regular nursing floor managed with phenobarb taper.? Patient progressed being monitored with CINH protocol 05/16: Earlier phenobarbital discontinued as patient was getting lethargic and delirious. 3. Acute kidney injury ? Patient started on IV fluids subsequent monitoring of electrolytes ordered ? 05/12/2023; patient kidney function continues to worsen will continue with IV fluids. Patient was on vancomycin and Zosyn vancomycin discontinued given worsening kidney ?05/13/2023 consult was placed to nephrology given worsening kidney function. Renal ultrasound obtained the day prior came back unremarkable ? 05/14/2023; kidney function continues to worsen continuous monitoring ordered ? 05/15/2023 kidney function continues to worsen. ? 05/16/2023 patient kidney function appears to be stable at this point 05/16: Creatinine during the hospital stay increased from 1.5-2.93 and then stabilizing at 2.61. 05/17: Patient was started on furosemide 40 mg IV daily yesterday by night auditor. BMP from today pending. 4. Mild hyponatremia ? Secondary to chronic alcohol abuse monitoring sodium corrected to 148. 5. Coagulopathy ? Secondary to chronic liver disease from patient chronic alcohol use 6. Acute transaminitis ? Monitoring 7.? Diabetes mellitus type II -Continue patient on his home regimen in addition to Accu-Cheks before meals andat bedtime with sliding scale coverage 8.? Sick sinus syndrome ? Status post pacemaker placement 9.? History of ascending aortic dissection ? Status post repair 10.? Valvular heart disease - history of aortic valve replacement with bioprosthetic material 11.? Hypertension - Blood pressure low on admission antihypertensives held 12. Dyslipidemia -Patient is on statin therapy, continued at home dose 13. GERD ? On famotidine 14. Thrombocytopenia ? Patient has had a precipitous drop in his platelet count. No bleeding at thispoint we will continue to monitor 05/14/2023 platelet count trending up we will continue with monitoring 15. Anemia ? Suspected to be secondary to anemia of chronic disorder monitoring H&H with plans to transfuse if patient becomes symptomatic or hemoglobin falls below 7 05/17: H&H 8/25%. Platelet count 233,000. 16. DVT prophylaxis ? SCDs only given that patient coagulopathic 17. Physical deconditioning - Requested for PT OT eval and transition social worker to assist with discharge planning 18. Anasarca ? Suspected to be secondary to hypoalbuminemia given patient chronic liver disease. Patient did receive IV Lasix 80 mg x 1 Charges/Coding Visit Charges Inpatient E&M: 35903 Subs Hosp L2 05/18/23 08 <Electronically signed by Refugio Rojas MD> Cosigner Signature (if applicable): CC: ~ Signed ADDENDUM by Dr. Refugio Rojas MD on 05/18/23 at 0835 Addendum Patient has been in antibiotic since admission 05/09/2023. Initially on ceftriaxone but was changed to Zosyn when transferred to ICU from [facility]. Zosyn then changed to cefdinir. Patient had antibiotic 9 days of antibiotics therefore we will discontinue it 05/18/23834<Electronically signed by Refugio Rojas MD> Cosigner Signature (if applicable): cc: ~* Signed ADDENDUM by Dr. Refugio Rojas MD on 05/18/23 at 0836 Addendum Sepsis most likely due to acute cystitis: Urine culture shows E. coli more than 100,000 colonies. Sepsis had resolved 05/18/23 08<Electronically signed by Refugio Rojas MD> Cosigner Signature (if applicable): cc: ~* Signed [facility] Work Phone: 1(771) 587-755104-08-2024 Progress note Author Refugio Rojas [facility] May 17, 2023 9:21am Note Date/Time May 17, 2023 7:50 am [facility] Medical Records Department [address] [place] [address] Progress Note - Hospitalist 05/17/2345 MR#: [id number] Acct: [id number] Name: ANALILIA MELENDREZ Rep #:[id number] : 1960 62 From: Refugio Carbajal PCP: ALAN Chahal tus:ADM IN Location: [place] [address] Reason for Visit Reason for Visit: Diagnoses Sepsis, unspecified organism (05/09/23) Unspecified severe protein-calorie malnutrition (05/09/23) Alcohol abuse, uncomplicated (05/09/23) Alcohol dependence, uncomplicated (05/09/23) Alcohol use, unspecified with withdrawal, uncomplicated (05/09/23) Essential (primary) hypertension (05/09/23) Alcohol-induced chronic pancreatitis (05/09/23) Acute kidney failure, unspecified (05/09/23) Acute cystitis without hematuria (05/09/23) Patient's noncompliance with other medical treatment and regimen due to unspecified reason (05/09/23) Objective Data Objective Data Vital Signs: Vital Signs Temp Pulse Resp BP Pulse Ox O2 Del Method O2 Flow Rate 97.8 F 72 18 142/92 H 97 Nasal Cannula 2 05/17/23 02:50 05/17/23 02:50 05/17/23 02:50 05/17/23 02:50 05/17/23 02:50 05/17/23 02:50 05/17/23 02:50 FiO2 25 05/15/23 11:10 Oxygen Flow Rate (L/min) 2 Oxygen Delivery Method Nasal Cannula Weight: 186 lb 15.232 oz Body Mass Index (BMI) 26.0 Intake & Output: Intake and Output for Last 24 Hours 05/15/23 05/16/23 05/17/23 23:59 23:59 23:59 Intake Total 2224.17 / 2664.17 2782.50 / 2782.50 200 / 200 Output Total 1475 / 1925 3200 / 4500 2200 / 2200 Balance 749.17 / 739.17 -417.50 / -1717.50 -1999 / Lab / Micro Data 05/17/23 06:15 05/17/23 06:15 Labs: Laboratory Results - last 24 hr 05/16/23 08:35: WBC 9.7, RBC 2.04 L, Hgb 7.2 L, Hct 21.9 L, MCV 107.4 H, MCH 35.3 H, MCHC 32.9, RDW Std Deviation 63.7 H, RDW Coeff of Kalpana 16.1 H, Plt Count 108 L, MPV 12.2 H, Immature Gran % (Auto) 1.900 H, Neut % (Auto) 82.3 H, Lymph %(Auto) 8.7 L, Erath % (Auto) 5.5, Eos % (Auto) 1.2, Baso % (Auto) 0.4, Absolute Neuts (auto) 8.0 H, Absolute Lymphs (auto) 0.84, Nucleated RBC % 0, Sodium 143, Potassium 4.9, Chloride 113 H, Carbon Dioxide 26.0, Anion Gap 4 L, BUN 26 H, Creatinine 2.79 H, Estim Creat Clear Calc 29.99, Est GFR (MDRD) Af Amer 30 L, Est GFR (MDRD) Non-Af 25 L, BUN/Creatinine Ratio 9.3 L, Glucose 117 H, Calcium 7.4 L, Magnesium 2.2, Total Bilirubin 0.40, AST 41 H, ALT 25, Alkaline Phosphatase 152 H, Total Protein 4.6 L, Albumin 1.0 L, Globulin 3.6, Albumin/Globulin Ratio 0.3 L 05/16/23 11:05: POC Glucose 193 H 05/16/23 17:02: POC Glucose 185 H 05/16/23 20:55: POC Glucose 272 H 05/17/23 06:15: WBC 12.3 H, RBC 2.06 L, Hgb 7.2 L, Hct 22.1 L, MCV 107.3 H, MCH 35.0 H, MCHC 32.6, RDW Std Deviation 62.1 H, RDW Coeff of Kalpana 16.0 H, Plt Count 175, MPV 11.6, Immature Gran % (Auto) 1.900 H, Neut % (Auto) 83.3 H, Lymph % (Auto) 8.6 L, Erath % (Auto) 4.6, Eos % (Auto) 1.1, Baso % (Auto) 0.5, Absolute Neuts (auto) 10.2 H, Absolute Lymphs (auto) 1.06, Nucleated RBC % 0, Sodium 141,Potassium 4.6, Chloride 109 H, Carbon Dioxide 29.0, Anion Gap 3 L, BUN 23 H, Creatinine 2.61 H, Estim Creat Clear Calc 32.06, Est GFR (MDRD) Af Amer 32 L, Est GFR (MDRD) Non-Af 27 L, BUN/Creatinine Ratio 8.8 L, Glucose 128 H, Calcium 7.9 L, Phosphorus 2.9, Iron 28 L, TIBC 45 L, Iron Saturation 62.2 H, Ferritin 419 H 05/17/23 06:27: POC Glucose 126 H Micro: Microbiology 05/16/23 12:35 Stool Stool Occult Blood (IBIS) - Final Occult Blood Positive 05/10/23 12:40 Blood Culture (Wb) - Arm Left Blood Culture - Final No growth in 5 days. 05/10/23 10:35 Blood Culture (Wb) - Left Hand Blood Culture - Final No growth in 5 days. 05/10/23 17:30 Urine Catheter - Catheter Urine Culture - Final Escherichia coli 05/12/23 17:50 Stool Stool Occult Blood (IBIS) - Final Occult Blood Positive 05/09/23 21:31 Urine, Clean Catch Legionella Antigen - Final 05/09/23 21:31 Urine, Clean Catch Streptococcus pneumoniae Antigen (M - Final Rhythm Strip Rhythm Strip: Sinus Rhythm Physical Exam Narrative Seen and examined. No acute issues overnight but patient feels very weak. Physical exam: General: Alert, Oriented x3, Cooperative HEENT: Atraumatic, PERRLA, EOMI, Normocephalic Oral: Oral mucosa dry. No Gingival or Mucosal Lesions/ Ulcerations Neck: Supple, No JVD, Negative Carotid Bruits Chest wall/Lungs: Air entry diminished in bilateral lung bases. No crepitation/rhonchi Cardiovascular: Paced rhythm. Mechanical valve click. Systolic murmur. Normal S1, Normal S2 Abdomen: Bowel Sounds Present, Soft, Non Tender, Non-Distended : No dysuria. No renal angle tenderness. No suprapubic tenderness. Extremities: Bilateral lower extremity and upper extremity subcutaneous edema. Capillary Refill Less than 3 Seconds Skin: No rashes, No breakdown Musculoskeletal: No Tenderness to Palpation of Joints or Extremities. ROM restricted muscle strength 4/5 and both knees and hip joints Neurological: Cranial nerves II-XII grossly intact, DTR 2+/4. No acute focal neurological deficit. Psych/Mental Status: Flat affect. Assessment & Plan Assessment/Plan (1) Sepsis: PLAN: Plan Patient is a 62-year-old gentleman with multiple comorbidities admitted with acute alcohol withdrawal. Patient had recently been discharged from the hospital To father's home after he refused to SNF . He was also found to be hypotensive with acute cystitis on admission. 1. Sepsis ? Secondary to acute cystitis as evidenced by the presence of an infection, SIRScriteria as well as evidence of endorgan dysfunction with acute kidney injury aswell as hypotension. Sepsis protocol initiated ordered lactic acid level blood cultures patient already on Rocephin patient resuscitated with IV fluids per protocol transferred to the intensive care unit in guarded ordered for PICC line. If patient does not respond to fluid resuscitation plan will be to start patient on norepinephrine. Consult placed to washer cutter 05/16: Sepsis has resolved. 2. Chronic alcohol dependence with acute alcohol withdrawal ? Admitted to regular nursing floor managed with phenobarb taper.? Patient progressed being monitored with CINH protocol 05/16: Earlier phenobarbital discontinued as patient was getting lethargic and delirious. 3. Acute kidney injury ? Patient started on IV fluids subsequent monitoring of electrolytes ordered ? 05/12/2023; patient kidney function continues to worsen will continue with IV fluids. Patient was on vancomycin and Zosyn vancomycin discontinued given worsening kidney ?05/13/2023 consult was placed to nephrology given worsening kidney function. Renal ultrasound obtained the day prior came back unremarkable ? 05/14/2023; kidney function continues to worsen continuous monitoring ordered ? 05/15/2023 kidney function continues to worsen. ? 05/16/2023 patient kidney function appears to be stable at this point 05/16: Creatinine during the hospital stay increased from 1.5-2.93 and then stabilizing at 2.61. 4. Mild hyponatremia ? Secondary to chronic alcohol abuse monitoring /Had sodium corrected to 148. 5. Coagulopathy ? Secondary to chronic liver disease from patient chronic alcohol use 6. Acute transaminitis ? Monitoring 7.? Diabetes mellitus type II -Continue patient on his home regimen in addition to Accu-Cheks before meals andat bedtime with sliding scale coverage 8.? Sick sinus syndrome ? Status post pacemaker placement 9.? History of ascending aortic dissection ? Status post repair 10.? Valvular heart disease - history of aortic valve replacement with bioprosthetic material 11.? Hypertension - Blood pressure low on admission antihypertensives held 12. Dyslipidemia -Patient is on statin therapy, continued at home dose 13. GERD ? On famotidine 14. Thrombocytopenia ? Patient has had a precipitous drop in his platelet count. No bleeding at thispoint we will continue to monitor 05/14/2023 platelet count trending up we will continue with monitoring 15. Anemia ? Suspected to be secondary to anemia of chronic disorder monitoring H&H with plans to transfuse if patient becomes symptomatic or hemoglobin falls below 7 16. DVT prophylaxis ? SCDs only given that patient coagulopathic 17. Physical deconditioning - Requested for PT OT eval and transition social worker to assist with discharge planning 18. Anasarca ? Suspected to be secondary to hypoalbuminemia given patient chronic liver disease. Patient did receive IV Lasix 80 mg x 1 Charges/Coding Visit Charges Inpatient E&M: 85373 Subs Hosp L2 05/17/23918 <Electronically signed by Refugio Rojas MD> Cosigner Signature (if applicable): CC: ~ Signed ADDENDUM by Dr. Refugio Rojas MD on 05/17/23 at 0921 Addendum Severe anemia hemoglobin 7.2 from last 2 days iron study shows transferrin saturation 62%. Therefore is not anemia of iron deficiency.B12 more than 2000. 05/17/23 09<Electronically signed by Refugio Rojas MD> Cosigner Signature (if applicable): cc: ~* Signed [facility] Work Phone: 1(717) 568-381604-07-2024 Progress note Author Conrado Morel [facility] May 16, 2023 9:45am Note Date/Time May 16, 2023 8:05 am [facility] Medical Records Department [address] [place] [id number] Progress Note - Hospitalist 05/16/23804 MR#: [id number] Acct: [id number] Name: ANALILIA MELENDREZ Rep #:[id number] : 1960 62 From: Conrado Morel MD PCP: ALAN Chahal tus:ADM IN Location: [place] [address]- 1 Reason for Visit Reason for Visit: Diagnoses Sepsis, unspecified organism (05/09/23) Unspecified severe protein-calorie malnutrition (05/09/23) Alcohol abuse, uncomplicated (05/09/23) Alcohol dependence, uncomplicated (05/09/23) Alcohol use, unspecified with withdrawal, uncomplicated (05/09/23) Essential (primary) hypertension (05/09/23) Alcohol-induced chronic pancreatitis (05/09/23) Acute kidney failure, unspecified (05/09/23) Acute cystitis without hematuria (05/09/23) Patient's noncompliance with other medical treatment and regimen due to unspecified reason (05/09/23) Subjective Subjective Patient seen markedly swollen. Hemoglobin down to 7.2 did undertake iron studies. Kidney function appears to be stable. Patient was administered with 80 mg of IV Lasix Objective Data Objective Data Vital Signs: Vital Signs Temp Pulse Resp BP Pulse Ox O2 Del Method O2 Flow Rate 97.6 F L 71 16 133/80 H 93 Nasal Cannula 2 05/16/23 03:00 05/16/23 03:00 05/16/23 03:00 05/16/23 03:00 05/16/23 07:24 05/16/23 07:24 05/16/23 07:24 FiO2 25 05/15/23 11:10 Oxygen Flow Rate (L/min) 2 Oxygen Delivery Method Nasal Cannula Weight: 86.1 kg Body Mass Index (BMI) 26.4 Intake & Output: Intake and Output for Last 24 Hours 05/14/23 05/15/23 05/16/23 23:59 23:59 23:59 Intake Total 2242.5 / 2262.5 2224.17 / 2664.17 440 / 440 Output Total 1000 / 1700 1475 / 1925 950 / 950 Balance 1242.5 / 562.5 749.17 / 739.17 -510 / -510 Lab / Micro Data 05/16/23 08:35 05/16/23 08:35 Labs: Laboratory Results - last 24 hr 05/15/23 06:20: Magnesium 2.5 05/15/23 11:28: POC Glucose 96 05/15/23 16:08: POC Glucose 162 H 05/15/23 20:52: POC Glucose 170 H 05/16/23 06:16: POC Glucose 119 H Micro: Microbiology 05/10/23 12:40 Blood Culture (Wb) - Arm Left Blood Culture - Final No growth in 5 days. 05/10/23 10:35 Blood Culture (Wb) - Left Hand Blood Culture - Final No growth in 5 days. 05/10/23 17:30 Urine Catheter - Catheter Urine Culture - Final Escherichia coli 05/12/23 17:50 Stool Stool Occult Blood (IBIS) - Final Occult Blood Positive 05/09/23 21:31 Urine, Clean Catch Legionella Antigen - Final 05/09/23 21:31 Urine, Clean Catch Streptococcus pneumoniae Antigen (M - Final Rhythm Strip Rhythm Strip: Sinus Rhythm Physical Exam Narrative GENERAL: Ill looking, delirious HEENT: Atraumatic; normocephalic EYES; Anicteric, Normal Conjunctiva NECK; supple, normal thyroid, RESPIRATORY: Diminished to auscultation CARDIOVASCULAR: Regular S1 S2, GI: soft, normoactive bowel sounds, : No Renal angle tenderness; EXTREMITIES: edema of all 4 extremities MUSCULOSKELETAL: no muscle wasting NEURO: Awake; no lateralizing signs. SKIN: No Rash PSYCH; Flat affect Assessment & Plan Assessment/Plan (1) Sepsis: PLAN: Plan Patient is a 62-year-old gentleman with multiple comorbidities admitted with acute alcohol withdrawal. Patient had recently been discharged from the hospital of right SNF placement which he refused. He was also found to be hypotensive with acute cystitis on admission. 1. Sepsis ? Secondary to acute cystitis as evidenced by the presence of an infection, SIRScriteria as well as evidence of endorgan dysfunction with acute kidney injury aswell as hypotension. Sepsis protocol initiated ordered lactic acid level blood cultures patient already on Rocephin patient resuscitated with IV fluids per protocol transferred to the intensive care unit in guarded ordered for PICC line. If patient does not respond to fluid resuscitation plan will be to start patient on norepinephrine. Consult placed to washer cutter ? 05/11/2023; patient remains in ICU did not require manage blood pressure remainssoft ? 05/13/2023; patient blood pressure has stabilized 2. Chronic alcohol dependence with acute alcohol withdrawal ? Admitted to regular nursing floor managed with phenobarb taper.? Patient progressed being monitored with CIWA protocol ? 05/11/2023 patient remains on phenobarb taper ? 05/13/2023; phenobarb was discontinued given increasing lethargy ? 05/14/2023; patient is delirious this a.m. Phenobarb has been weaned off the day prior. 3. Acute kidney injury ? Patient started on IV fluids subsequent monitoring of electrolytes ordered ? 05/12/2023; patient kidney function continues to worsen will continue with IV fluids. Patient was on vancomycin and Zosyn vancomycin discontinued given worsening kidney ?05/13/2023 consult was placed to nephrology given worsening kidney function. Renal ultrasound obtained the day prior came back unremarkable ? 05/14/2023; kidney function continues to worsen continuous monitoring ordered ? 05/15/2023 kidney function continues to worsen. ? 05/16/2023 patient kidney function appears to be stable at this point 4. Mild hyponatremia ? Secondary to chronic alcohol abuse monitoring 5. Coagulopathy ? Secondary to chronic liver disease from patient chronic alcohol use 6. Acute transaminitis ? Monitoring 7.? Diabetes mellitus type II -Continue patient on his home regimen in addition to Accu-Cheks before meals andat bedtime with sliding scale coverage 8.? Sick sinus syndrome ? Status post pacemaker placement 9.? History of ascending aortic dissection ? Status post repair 10.? Valvular heart disease - history of aortic valve replacement with bioprosthetic material 11.? Hypertension - Blood pressure low on admission antihypertensives held 12. Dyslipidemia -Patient is on statin therapy, continued at home dose 13. GERD ? On famotidine 14. Thrombocytopenia ? Patient has had a precipitous drop in his platelet count. No bleeding at thispoint we will continue to monitor 05/14/2023 platelet count trending up we will continue with monitoring 15. Anemia ? Suspected to be secondary to anemia of chronic disorder monitoring H&H with plans to transfuse if patient becomes symptomatic or hemoglobin falls below 7 16. DVT prophylaxis ? SCDs only given that patient coagulopathic 17. Physical deconditioning - Requested for PT OT eval and transition social worker to assist with discharge planning 18. Anasarca ? Suspected to be secondary to hypoalbuminemia given patient chronic liver disease. Patient did receive IV Lasix 80 mg x 1 Time spent in the patient's overall evaluation,decision-making process, review of diagnostic data, adjustment of management, discussion with other providers, nursing nursing and ancillary staff involved in patient's care documentation, 35 Minutes Charges/Coding Visit Charges Inpatient E&M: 15885 Subs Hosp L2 05/16/23 0945 <Electronically signed by Conrado Morel MD> Cosigner Signature (if applicable): CC: ~ Signed [facility] Work Phone: 1(191) 895-277604-06-2024 Progress note Author Earnest Hamlin tr [facility] May 15, 2023 6:15pm Note Date/Time May 15, 2023 5:43 pm [facility] Medical Records Department [address] [place] [address] Progress Note - Nephrology 05/15/235 MR#: [id number] Acct: [id number] Name: ANALILIA MELENDREZ Rep #:[id number] : 1960 62 From: Earnest ortiz MD PCP: Andreas Pathak, VEHICLE MODIFICATION TECHNICIANMiahC Sta tus:ADM IN Location: [place] [address] Subjective Subjective Following for acute kidney injury. The patient denies current chest pain, shortness of breath, or nausea. He is hard of hearing. Objective Data Objective Data Vital Signs: Vital Signs Temp Pulse Resp BP Pulse Ox O2 Del Method O2 Flow Rate 98.1 F 65 18 127/87 H 98 Nasal Cannula 2 05/15/23 16:00 05/15/23 16:00 05/15/23 16:00 05/15/23 16:00 05/15/23 16:00 05/15/23 16:00 05/15/23 16:00 FiO2 25 05/15/23 11:10 Oxygen Flow Rate (L/min) 2 Oxygen Delivery Method Nasal Cannula Weight: 85.9 kg Body Mass Index (BMI) 26.4 Intake & Output: Intake and Output for Last 24 Hours 05/13/23 05/14/23 05/15/23 23:59 23:59 23:59 Intake Total 1470 / 1470 2242.5 / 2262.5 1272.50 / 1272.50 Output Total 1325 / 1325 1000 / 1700 1100 / 1100 Balance 145 / 145 1242.5 / 562.5 172.50 / 172.50 Lab / Micro Data 05/15/23 06:20 05/15/23 06:20 Labs: Laboratory Results - last 24 hr 05/14/23 21:27: POC Glucose 185 H 05/15/23 06:20: WBC 9.6, RBC 2.33 L, Hgb 8.0 L, Hct 24.7 L, MCV 106.0 H, MCH 34.3 H, MCHC 32.4, RDW Std Deviation 63.7 H, RDW Coeff of Kalpana 16.3 H, Plt Count 80 L, MPV 12.2 H, Immature Gran % (Auto) 1.900 H, Neut % (Auto) 76.8 H, Lymph % (Auto) 10.6 L, Erath % (Auto) 8.5, Eos % (Auto) 1.7, Baso % (Auto) 0.5, Absolute Neuts (auto) 7.3, Absolute Lymphs (auto) 1.01, Nucleated RBC % 0, Sodium 143, Potassium 4.3, Chloride 111 H, Carbon Dioxide 30.0, Anion Gap 2 L, BUN 27 H, Creatinine 2.91 H, Estim Creat Clear Calc 28.75, Est GFR (MDRD) Af Amer 29 L, Est GFR (MDRD) Non-Af 24 L, BUN/Creatinine Ratio 9.3 L, Glucose 91, Calcium 7.5 L, Magnesium 2.5, Total Bilirubin 0.40, AST 46 H, ALT 28, Alkaline Phosphatase 156 H, Total Protein 4.4 L, Albumin 1.1 L, Globulin 3.3, Albumin/Globulin Ratio 0.3 L 05/15/23 06:24: POC Glucose 88 05/15/23 11:28: POC Glucose 96 05/15/23 16:08: POC Glucose 162 H Micro: Microbiology 05/10/23 12:40 Blood Culture (Wb) - Arm Left Blood Culture - Final No growth in 5 days. 05/10/23 10:35 Blood Culture (Wb) - Left Hand Blood Culture - Final No growth in 5 days. 05/10/23 17:30 Urine Catheter - Catheter Urine Culture - Final Escherichia coli 05/12/23 17:50 Stool Stool Occult Blood (IBIS) - Final Occult Blood Positive 05/09/23 21:31 Urine, Clean Catch Legionella Antigen - Final 05/09/23 21:31 Urine, Clean Catch Streptococcus pneumoniae Antigen (M - Final Rhythm Strip Rhythm Strip: Sinus Rhythm Physical Exam Narrative Alert to name, no apparent distress. Hard of hearing S1, S2, RRR Lungs clear anteriorly. No wheezes, rhonchi rales Abdomen soft, positive bowel sound Trace edema bilateral lower arms and hands. 1+ pitting edema bilateral lower legs Indwelling Gillis with clear urine in bag GI Palpation: ascites Neuro Sensorium / Orientation: awake Psych cooperative Assessment & Plan Assessment/Plan (1) MALIK (acute kidney injury): (2) HTN (hypertension): PLAN: Plan Impression/Plan: The patient is a 62-year-old man with past history of type 2 diabetes mellitus, hypertension, CAD, aortic valve replacement, sick sinus syndrome status post PPM, polysubstance use disorder, and hyperlipidemia. The patient presents to the hospital on 05/09/2023 with abdominal pain. The patient was diagnosed with alcohol withdrawal and severe sepsis attributed to right lower lobe pneumonia. Nephrology is following for acute kidney injury. Acute kidney injury. The patient does not have any history of chronic kidney disease. Baseline serumcreatinine has been around 1.00 mg/dL (November 2022). Serum creatinine was 1.50 mg/dL on presentation on 05/09/2023 and peaked at 2.93 mg/dL on 05/14/2023. MALIK secondary to ischemic ATN related to sepsis. Serum creatinine has plateaued and is 2.91 mg/dL today. We should continue to see stability of renal function since patient is hemodynamically stable today. Continue to hold ramipril and hydrochlorothiazide. Continue current supportive care, keeping MAP above 65 mmHg. There is no need for kidney replacement therapy. Continue to encourage oral intake. Recheck renal function, volume status, acid-base, and electrolytes tomorrow. Hypertension. BP is reasonably controlled off of ramipril and hydrochlorothiazide. These medications are on hold because of MALIK. He remains on metoprolol succinate. Continue to hold ramipril and hydrochlorothiazide for now. 05/15/231814 <Electronically signed by Earnest Bolanos MD> Cosigner Signature (if applicable): CC: ~ Signed [facility] Work Phone: 1(200) 399-356604-06-2024 Progress note Author Conrado Morel [facility] May 15, 2023 8:55am Note Date/Time May 15, 2023 8:15 am [facility] Medical Records Department [address] [place] [address] Progress Note - Hospitalist 05/15/23 0814 MR#: [id number] Acct: [id number] Name: ANALILIA MELENDREZ Rep #:[id number] : 1960 62 From: Conrado Morel MD PCP: ALAN Chahal tus:ADM IN Location: [facility] [id number] Reason for Visit Reason for Visit: Diagnoses Sepsis, unspecified organism (05/09/23) Unspecified severe protein-calorie malnutrition (05/09/23) Alcohol abuse, uncomplicated (05/09/23) Alcohol dependence, uncomplicated (05/09/23) Alcohol use, unspecified with withdrawal, uncomplicated (05/09/23) Alcohol-induced chronic pancreatitis (05/09/23) Acute kidney failure, unspecified (05/09/23) Acute cystitis without hematuria (05/09/23) Patient's noncompliance with other medical treatment and regimen due to unspecified reason (05/09/23) Subjective Subjective Patient seen no improvement in clinical condition. Creatinine continues to worsen. Objective Data Objective Data Vital Signs: Vital Signs Temp Pulse Resp BP Pulse Ox O2 Del Method O2 Flow Rate 96.8 F L 60 18 117/78 98 Bi-pap 2 05/15/23 03:00 05/15/23 03:00 05/15/23 03:00 05/15/23 03:00 05/15/23 03:00 05/15/23 03:00 05/14/23 15:00 FiO2 25 05/15/23 03:00 Oxygen Flow Rate (L/min) 2 Oxygen Delivery Method Bi-pap Weight: 85.9 kg Body Mass Index (BMI) 26.4 Intake & Output: Intake and Output for Last 24 Hours 05/13/23 05/14/23 05/15/23 23:59 23:59 23:59 Intake Total 1470 / 1470 2242.5 / 2262.5 20 / 20 Output Total 1325 / 1325 1000 / 1700 700 / 700 Balance 145 / 145 1242.5 / 562.5 -680 / -680 Lab / Micro Data 05/15/23 06:20 05/15/23 06:20 Labs: Laboratory Results - last 24 hr 05/13/23 04:20: Diff Path Review Reviewed 05/14/23 07:28: Diff Path Review May foll, Reactive Lymphocytes RARE, Platelet Estimate MKD 05/14/23 11:55: POC Glucose 223 H 05/14/23 16:11: POC Glucose 157 H 05/14/23 21:27: POC Glucose 185 H 05/15/23 06:20: WBC 9.6, RBC 2.33 L, Hgb 8.0 L, Hct 24.7 L, MCV 106.0 H, MCH 34.3 H, MCHC 32.4, RDW Std Deviation 63.7 H, RDW Coeff of Kalpana 16.3 H, Plt Count 80 L, MPV 12.2 H, Immature Gran % (Auto) 1.900 H, Neut % (Auto) 76.8 H, Lymph % (Auto) 10.6 L, Erath % (Auto) 8.5, Eos % (Auto) 1.7, Baso % (Auto) 0.5, Absolute Neuts (auto) 7.3, Absolute Lymphs (auto) 1.01, Nucleated RBC % 0, Sodium 143, Potassium 4.3, Chloride 111 H, Carbon Dioxide 30.0, Anion Gap 2 L, BUN 27 H, Creatinine 2.91 H, Estim Creat Clear Calc 28.75, Est GFR (MDRD) Af Amer 29 L, Est GFR (MDRD) Non-Af 24 L, BUN/Creatinine Ratio 9.3 L, Glucose 91, Calcium 7.5 L, Total Bilirubin 0.40, AST 46 H, ALT 28, Alkaline Phosphatase 156 H, Total Protein 4.4 L, Albumin 1.1 L, Globulin 3.3, Albumin/Globulin Ratio 0.3 L 05/15/23 06:24: POC Glucose 88 Micro: Microbiology 05/10/23 17:30 Urine Catheter - Catheter Urine Culture - Final Escherichia coli 05/12/23 17:50 Stool Stool Occult Blood (IBIS) - Final Occult Blood Positive 05/10/23 12:40 Blood Culture (Wb) - Arm Left Blood Culture - Preliminary No growth in 48 hours. 05/10/23 10:35 Blood Culture (Wb) - Left Hand Blood Culture - Preliminary No growth in 48 hours. 05/09/23 21:31 Urine, Clean Catch Legionella Antigen - Final 05/09/23 21:31 Urine, Clean Catch Streptococcus pneumoniae Antigen (M - Final Rhythm Strip Rhythm Strip: Sinus Rhythm Physical Exam Narrative GENERAL: Ill looking, delirious HEENT: Atraumatic; normocephalic EYES; Anicteric, Normal Conjunctiva NECK; supple, normal thyroid, RESPIRATORY: Diminished to auscultation CARDIOVASCULAR: Regular S1 S2, GI: soft, normoactive bowel sounds, : No Renal angle tenderness; EXTREMITIES: edema, no clubbing, MUSCULOSKELETAL: no muscle wasting NEURO: Awake; no lateralizing signs. SKIN: No Rash PSYCH; Flat affect Assessment & Plan Assessment/Plan (1) Sepsis: PLAN: Plan Patient is a 62-year-old gentleman with multiple comorbidities admitted with acute alcohol withdrawal. Patient had recently been discharged from the hospital of right SNF placement which he refused. He was also found to be hypotensive with acute cystitis on admission. 1. Sepsis ? Secondary to acute cystitis as evidenced by the presence of an infection, SIRScriteria as well as evidence of endorgan dysfunction with acute kidney injury aswell as hypotension. Sepsis protocol initiated ordered lactic acid level blood cultures patient already on Rocephin patient resuscitated with IV fluids per protocol transferred to the intensive care unit in guarded ordered for PICC line. If patient does not respond to fluid resuscitation plan will be to start patient on norepinephrine. Consult placed to washer cutter ? 05/11/2023; patient remains in ICU did not require manage blood pressure remainssoft ? 05/13/2023; patient blood pressure has stabilized 2. Chronic alcohol dependence with acute alcohol withdrawal ? Admitted to regular nursing floor managed with phenobarb taper.? Patient progressed being monitored with CIWA protocol ? 05/11/2023 patient remains on phenobarb taper ? 05/13/2023; phenobarb was discontinued given increasing lethargy ? 05/14/2023; patient is delirious this a.m. Phenobarb has been weaned off the day prior. 3. Acute kidney injury ? Patient started on IV fluids subsequent monitoring of electrolytes ordered ? 05/12/2023; patient kidney function continues to worsen will continue with IV fluids. Patient was on vancomycin and Zosyn vancomycin discontinued given worsening kidney ?05/13/2023 consult was placed to nephrology given worsening kidney function. Renal ultrasound obtained the day prior came back unremarkable ? 05/14/2023; kidney function continues to worsen continuous monitoring ordered ? 05/15/2023 kidney function continues to worsen. 4. Mild hyponatremia ? Secondary to chronic alcohol abuse monitoring 5. Coagulopathy ? Secondary to chronic liver disease from patient chronic alcohol use 6. Acute transaminitis ? Monitoring 7.? Diabetes mellitus type II -Continue patient on his home regimen in addition to Accu-Cheks before meals andat bedtime with sliding scale coverage 8.? Sick sinus syndrome ? Status post pacemaker placement 9.? History of ascending aortic dissection ? Status post repair 10.? Valvular heart disease - history of aortic valve replacement with bioprosthetic material 11.? Hypertension - Blood pressure low on admission antihypertensives held 12. Dyslipidemia -Patient is on statin therapy, continued at home dose 13. GERD ? On famotidine 14. Thrombocytopenia ? Patient has had a precipitous drop in his platelet count. No bleeding at thispoint we will continue to monitor 05/14/2023 platelet count trending up we will continue with monitoring 15. Anemia ? Suspected to be secondary to anemia of chronic disorder monitoring H&H with plans to transfuse if patient becomes symptomatic or hemoglobin falls below 7 16. DVT prophylaxis ? SCDs only given that patient coagulopathic 17. Physical deconditioning - Requested for PT OT eval and transition social worker to assist with discharge planning Time spent in the patient's overall evaluation,decision-making process, review of diagnostic data, adjustment of management, discussion with other providers, nursing nursing and ancillary staff involved in patient's care documentation, 35 Minutes Charges/Coding Visit Charges Inpatient E&M: 72145 Subs Hosp L2 05/15/23 0855 <Electronically signed by Conrado Morel MD> Cosigner Signature (if applicable): CC: ~ Signed [facility] Work Phone: 1(703) 950-333004-05-2024 Progress note Author Milagros Normandonaldo [facility] May 14, 2023 11:00am Note Date/Time May 14, 2023 11:0 0am [facility] Medical Records Department [address] [place] [address] Progress Note - Nephrology 05/14/23 1056 MR#: [id number] Acct: [id number] Name: ANALILIA MELENDREZ JMAARI Rep #:[id number] : 1960 62 From: Milagros bourne MD PCP: ALAN Chahal Sta tus:ADM IN Location: [place] [id number]- [id number] Subjective Subjective Follow-up on acute kidney injury. He is not doing well, he is not eating, wantsto go home. Hemodynamically stable. Appears to be quite edematous. Objective Data Objective Data Vital Signs: Vital Signs Temp Pulse Resp BP Pulse Ox O2 Del Method O2 Flow Rate 97.6 F L 63 18 136/93 H 100 Bi-pap 2 05/14/23 08:59 05/14/23 10:17 04/05/24 10:17 05/14/23 08:59 05/14/23 10:17 05/14/23 08:59 05/13/23 22:14 FiO2 30 05/14/23 10:17 Oxygen Flow Rate (L/min) 2 Oxygen Delivery Method Bi-pap Weight: 84.7 kg Body Mass Index (BMI) 26.0 Intake & Output: Intake and Output for Last 24 Hours 05/12/23 05/13/23 05/14/23 23:59 23:59 23:59 Intake Total 1790.00 / 1790.00 1470 / 1470 210 / 210 Output Total 1350 / 1350 1325 / 1325 450 / 450 Balance 440.00 / 440.00 145 / 145 -240 / -240 Lab / Micro Data Attestation: I reviewed the patient's lab results. 05/14/23 07:28 05/14/23 07:28 Labs: Laboratory Results - last 24 hr 05/13/23 04:20: Diff Path Review Reviewed 05/13/23 11:24: POC Glucose 157 H 05/13/23 18:42: POC Glucose 136 H 05/13/23 22:25: POC Glucose 145 H 05/14/23 05:55: POC Glucose 129 H 05/14/23 07:28: WBC 9.2, RBC 2.59 L, Hgb 8.8 L, Hct 27.1 L, MCV 104.6 H, MCH 34.0 H, MCHC 32.5, RDW Std Deviation 61.6 H, RDW Coeff of Kalpana 15.9 H, Plt Count 48 L*, MPV 12.5 H, Immature Gran % (Auto) 2.700 H, Neut % (Auto) 75.4 H, Lymph %(Auto) 10.3 L, Erath % (Auto) 9.5, Eos % (Auto) 1.4, Baso % (Auto) 0.7, Absolute Neuts (auto) 6.9, Absolute Lymphs (auto) 0.94, Nucleated RBC % 0, Diff Path Review May foll, Reactive Lymphocytes RARE, Platelet Estimate MKD DEC, Sodium 142, Potassium 4.5, Chloride 108 H, Carbon Dioxide 28.0, Anion Gap 6, BUN 29 H, Creatinine 2.93 H, Estim Creat Clear Calc 28.56, Est GFR (MDRD) Af Amer 28 L, Est GFR (MDRD) Non-Af 23 L, BUN/Creatinine Ratio 9.9 L, Glucose 136 H, Calcium 7.7 L, Total Bilirubin 0.60, AST 42 H, ALT 27, Alkaline Phosphatase 140 H, TotalProtein 4.6 L, Albumin 1.1 L, Globulin 3.5, Albumin/Globulin Ratio 0.3 L Micro: Microbiology 05/10/23 17:30 Urine Catheter - Catheter Urine Culture - Final Escherichia coli 05/12/23 17:50 Stool Stool Occult Blood (IBIS) - Final Occult Blood Positive 05/10/23 12:40 Blood Culture (Wb) - Arm Left Blood Culture - Preliminary No growth in 48 hours. 05/10/23 10:35 Blood Culture (Wb) - Left Hand Blood Culture - Preliminary No growth in 48 hours. 05/09/23 21:31 Urine, Clean Catch Legionella Antigen - Final 05/09/23 21:31 Urine, Clean Catch Streptococcus pneumoniae Antigen (M - Final Rhythm Strip Rhythm Strip: Sinus Rhythm Physical Exam Const alert, no apparent distress and average body habitus Orientation / Consciousness: oriented to person and confused HEENT normocephalic Head and Scalp: atraumatic Resp clear to auscultation bilaterally Auscultation: diminished lung sounds bilateral lower Cardio no murmurs GI non-tender Auscultation: normoactive bowel sounds Palpation: ascites external exam normal Neuro Sensorium / Orientation: awake Psych cooperative Assessment & Plan Assessment/Plan (1) MALIK (acute kidney injury): PLAN: I suspect she has got ATN and that is multifactorial. He probably has chronic renal hypoperfusion due to advanced liver failure/cirrhosis, sepsis, nonsteroidals, IV contrast. His liver failure is much more advanced current admission with thrombocytopenia, profound hypoalbuminemia, prolonged PT and INR. Fortunately his creatinine seems to have been plateauing and he produces good urine. His fluid balance is negative and he is hemodynamically stable. Once his creatinine starts improving, we may start using diuretics 05/14/23 1100 <Electronically signed by Milagros Bess MD> Cosigner Signature (if applicable): CC: ~ Signed [facility] Work Phone: 1(148) 171-712804-05-2024 Consult note Author Milagros Bess [facility] May 14, 2023 10:47am Note Date/Time May 13, 2023 1:09 pm [facility] Medical Records Department [address] [place] [address] Consultation - Nephrology 05/13/23 1254 MR#: [id number] Acct: [id number] Name: ANALILIA MELENDREZ Rep #:[id number] : 1960 62 From: Estefany garay NP-C PCP: ALAN Chahal tus:ADM IN Location: [place] [address] Assessment & Plan Assessment/Plan (1) MALIK (acute kidney injury): (2) Sepsis: (3) Chronic alcohol abuse: PLAN: Plan This is a 62-year-old male with past medical history significant for hypertension, hyperlipidemia, diabetes mellitus type 2, diabetic neuropathy, history of coronary artery disease status post [place], history of mechanical aortic valve replacement converted to bio prosthetic valve, history of alcohol abuse who was admitted to the hospital on May 08 after presenting with complaints abdominal pain. Workup in the emergency room concerning for a UTI and pneumonia, admittedfor acute sepsis. Nephrology consulted in view of rising creatinine. Patient'sbaseline creatinine is around 1 mg/dL. On May 08 patient's creatinine was 1.50 mg/dL, creatinine slowly rising daily and is up to 2.85 mg/dL today. Patient is nonoliguric. Potassium and bicarb are normal. Since admission patient had CT with IV contrast on 05/08. He also had Toradol with last dose which seems to be on May 09. Patient has also been hypotensive during this hospitalization. Quite possibly pre-renal MALIK evolving into ischemic ATN in setting of sepsis with volume depletion, hypotension and possible exposure to contrast and NSAIDs. At this time there is no acute indication for BULL FLOAT FINISHER. Renal ultrasound did not show any evidence of hydronephrosis. Patient is not on any ANKIT or ARB's, no recent diuretics. Patient is on gentle IV fluids. Recommend continue with gentle IV fluids. Oral intake may be poor, patient may need encouragement with solute and fluid intake. Patient does have some mild edema to lower arms and hands, mild edema to lower legs but possibly from third spacing, his last albumin was 1.0. Reviewed past UA, have been negative for protein, last UA positive for protein and blood but is currently being treated for UTI. For sepsis, cystitis, pneumonia, patient is on IV antibiotics Zosyn. Blood pressures low normal, will add holding parameters to Toprol. Hopefully renal function will begin to plateau and then improve. Will continue monitor renal function along with you. Further orders forthcoming as hospitalization evolves. Thank you for allowing us to participate in the care of Mr. Melendrez HPI Consult Data Date of Consult: 05/13/23 HPI Narrative HPI Narrative: ANALILIA MELENDREZ, is a 62 M who presented to the emergency room with complaints of abdominal pain. Patient was just recently admitted to [facility] from April 20 April 26 for help with alcohol detoxification, discharged to his father's home. Patient has history of hypertension, hyperlipidemia, diabetes mellitus type 2, diabetic neuropathy, history of coronary artery disease status post [place], history of mechanical aortic valve replacement converted to bio prosthetic valve, history of alcohol abuse. Workup in the emergency room included UA concerning for UTI/cystitis, CT showing pleural effusion with moderate ascites. Patient was admitted for further evaluation and treatment. Nephrology consulted in view of rising serum creatinine. Patient is alert to name but however having difficult time recalling recent events therefore information gathered from the chart. Patient's baseline creatinine is around 1 mg/dL. On presentation to the emergency room May 08, creatinine 1.50. Creatinine has been slowly increasing daily and today his creatinine is up to 2.85 mg/dL. [facility] Medical History AAA (abdominal aortic aneurysm) Abdominal ascites Admitted to alcohol detoxification center Adrenal nodule Alcohol abuse Alcohol dependence Alcohol dependence Alcoholic hepatitis Alcoholism Anxiety Ascending aortic dissection (~2005) Cardiac pacemaker in situ (~06/2016) Chronic pancreatitis Diabetes Diabetes mellitus, type II Essential hypertension Gastric wall thickening Hiatal hernia History of diabetes mellitus HTN (hypertension) Hx of hypercholesterolemia Left carotid bruit Myocardial infarct Non-sustained ventricular tachycardia Pacemaker Pacemaker Pancreatitis Pure hypercholesterolemia Right bundle branch block (RBBB) Seizures Sick sinus syndrome Smoker Substance abuse SVT (supraventricular tachycardia) Thoracic aortic aneurysm Tobacco use Home Medications omeprazole 40 mg capsule,delayed release 40 mg PO DAILY ACID REFLUX 06/10/18 [History Last Taken 04/19/23] amlodipine 5 mg tablet 5 mg PO DAILY BLOOD PRESSURE 10/17/20 [History Last Taken 04/19/23] atorvastatin 10 mg tablet 10 mg PO DAILY CHOLESTEROL 10/17/20 [History Last Taken 04/19/23] hydralazine 25 mg tablet 25 mg PO TID BP 10/17/20 [History Last Taken 04/19/23] hydrochlorothiazide 12.5 mg tablet 12.5 mg PO DAILY BLOOD PRESSURE 10/17/20 [History Last Taken 11/11/21] ramipril 10 mg capsule 10 mg PO BID BLOOD PRESSURE 10/17/20 [History Last Taken 11/11/21] dapagliflozin propanediol 10 mg tablet (Farxiga) 10 mg PO DAILY DIABETES 09/30/21 [History Last Taken 04/19/23] multivitamin 1 tab PO DAILY SUPPLEMENT 11/11/21 [History Last Taken 11/10/21] potassium chloride 10 mEq tablet,extended release(part/cryst) 20 meq PO DAILY SUPPLEMENT 11/11/21 [History Last Taken Unknown] metoprolol succinate 50 mg tablet,extended release 24 hr 50 mg PO BID BLOOD PRESSURE #60 tabs 10/15/22 [Rx Last Taken 04/19/23] gabapentin 300 mg capsule 300 mg PO DAILY NEUROPATHY 11/14/22 [History Last Taken Unknown] insulin glargine 100 unit/mL (3 mL) subcutaneous pen (Lantus Solostar U-100 Insulin) 10 unit subcut 1200 DIABETES 11/14/22 [History Last Taken 04/19/23] metformin 500 mg tablet,extended release 24 hr 500 mg PO BID DIABETES 11/15/22 [History Last Taken 04/19/23] famotidine 40 mg tablet 40 mg PO DAILY ACID REFLUX 04/20/23 [History Last Taken 04/19/23] Allergy/AdvReac Type Severity Reaction Status Date / Time No Known Allergies Allergy Verified 05/09/23 13:37 Family History Father CAD (coronary artery disease) Mother Dementia Surgical History H/O aortic valve replacement H/O cardiac catheterization History of aortic aneurysm repair (~2016) History of aortic valve replacement with bioprosthetic valve (~2016) History of cataract surgery History of hernia repair Social History (Updated 05/09/23 @ 13:38 by Ann-Marie Nova) household members: family housing: house Smoking Status: Current every day smoker tobacco type: cigarettes alcohol intake: current alcohol intake frequency: 0-2 drinks per day details: Reports currently ~ 2 tall boys daily. substance use type: former substance user caffeine: Yes Type: coffee Number of servings: 3 ROS ROS Narrative Unable to obtain Physical Exam Narrative Alert to name, no apparent distress. Drowsy S1, S2, RRR Lungs clear anteriorly. No wheezes, rhonchi rales Abdomen soft, positive bowel sound Trace edema bilateral lower arms and hands. No pitting edema bilateral lower legs Indwelling Gillis with clear urine in bag Lab / Micro Data 05/13/23 04:20 05/13/23 04:20 Labs: Laboratory Results - last 24 hr 05/12/23 04:10: Diff Path Review Reviewed 05/12/23 16:25: POC Glucose 179 H 05/12/23 21:13: POC Glucose 197 H 05/13/23 04:20: WBC 9.5, RBC 2.48 L, Hgb 8.4 L, Hct 26.0 L, MCV 104.8 H, MCH 33.9 H, MCHC 32.3, RDW Std Deviation 60.0 H, RDW Coeff of Kalpana 15.6 H, Plt Count 31 L*, MPV 12.4 H, Immature Gran % (Auto) 1.200 H, Neut % (Auto) 79.2 H, Lymph %(Auto) 7.4 L, Erath % (Auto) 9.6, Eos % (Auto) 2.0, Baso % (Auto) 0.6, Absolute Neuts (auto) 7.6, Absolute Lymphs (auto) 0.70 L, Nucleated RBC % 0, Diff Path Review May foll, Platelet Estimate MOD DEC, Sodium 140, Potassium 4.6, Chloride 105, Carbon Dioxide 32.0, Anion Gap 3 L, BUN 28 H, Creatinine 2.85 H, Estim Creat Clear Calc 29.36, Est GFR (MDRD) Af Amer 29 L, Est GFR (MDRD) Non-Af 24 L,BUN/Creatinine Ratio 9.8 L, Glucose 166 H, Calcium 7.5 L, Total Bilirubin 0.60, AST 85 H, ALT 32, Alkaline Phosphatase 142 H, Total Protein 4.2 L, Albumin 1.0 L, Globulin 3.2, Albumin/Globulin Ratio 0.3 L 05/13/23 06:27: POC Glucose 151 H 05/13/23 11:24: POC Glucose 157 H Micro: Microbiology 05/10/23 17:30 Urine Catheter - Catheter Urine Culture - Final Escherichia coli 05/12/23 17:50 Stool Stool Occult Blood (IBIS) - Final Occult Blood Positive 05/10/23 12:40 Blood Culture (Wb) - Arm Left Blood Culture - Preliminary No growth in 48 hours. 05/10/23 10:35 Blood Culture (Wb) - Left Hand Blood Culture - Preliminary No growth in 48 hours. 05/13/23 1309 <Electronically signed by Estefany MAY> Cosigner Signature (if applicable): 05/14/23 1047 <Electronically signed by Milagros Bess MD> CC: ALAN Pathak; Dr. Conrado Pro DO; Dr. Maya Melo MD~ Signed [facility] Work Phone: 1(642) 408-287604-05-2024 Progress note Author Conrado Morel [facility] May 14, 2023 9:55am Note Date/Time May 14, 2023 7:34 am [facility] Medical Records Department [address] [place] [id number] Progress Note - Hospitalist 05/14/23 0734 MR#: [id number] Acct: [id number] Name: ANALILIA MELENDREZ Rep #:[id number] : 1960 62 From: Conrado Morel MD PCP: ALAN Chahal tus:ADM IN Location: [place] [address] Reason for Visit Reason for Visit: Diagnoses Sepsis, unspecified organism (05/09/23) Unspecified severe protein-calorie malnutrition (05/09/23) Alcohol abuse, uncomplicated (05/09/23) Alcohol dependence, uncomplicated (05/09/23) Alcohol use, unspecified with withdrawal, uncomplicated (05/09/23) Alcohol-induced chronic pancreatitis (05/09/23) Acute cystitis without hematuria (05/09/23) Patient's noncompliance with other medical treatment and regimen due to unspecified reason (05/09/23) Subjective Subjective Patient seen, was transferred from intensive care unit to U the day prior. Patient appears delirious this a.m. Kidney function continues to worsen Objective Data Objective Data Vital Signs: Vital Signs Temp Pulse Resp BP Pulse Ox O2 Del Method O2 Flow Rate 97.4 F L 59 L 14 135/101 H 100 Bi-pap 2 05/14/23 03:26 05/14/23 04:05 05/14/23 04:05 05/14/23 03:26 05/14/23 04:05 05/14/23 04:00 05/13/23 22:14 FiO2 30 05/14/23 04:05 Oxygen Flow Rate (L/min) 2 Oxygen Delivery Method Bi-pap Weight: 84.7 kg Body Mass Index (BMI) 26.0 Intake & Output: Intake and Output for Last 24 Hours 05/12/23 05/13/23 05/14/23 23:59 23:59 23:59 Intake Total 1790.00 / 1790.00 1470 / 1470 50 / 50 Output Total 1350 / 1350 1325 / 1325 450 / 450 Balance 440.00 / 440.00 145 / 145 -400 / -400 Lab / Micro Data 05/14/23 07:28 05/14/23 07:28 Labs: Laboratory Results - last 24 hr 05/12/23 04:10: Diff Path Review Reviewed 05/13/23 11:24: POC Glucose 157 H 05/13/23 18:42: POC Glucose 136 H 05/13/23 22:25: POC Glucose 145 H 05/14/23 05:55: POC Glucose 129 H Micro: Microbiology 05/10/23 17:30 Urine Catheter - Catheter Urine Culture - Final Escherichia coli 05/12/23 17:50 Stool Stool Occult Blood (IBIS) - Final Occult Blood Positive 05/10/23 12:40 Blood Culture (Wb) - Arm Left Blood Culture - Preliminary No growth in 48 hours. 05/10/23 10:35 Blood Culture (Wb) - Left Hand Blood Culture - Preliminary No growth in 48 hours. 05/09/23 21:31 Urine, Clean Catch Legionella Antigen - Final 05/09/23 21:31 Urine, Clean Catch Streptococcus pneumoniae Antigen (M - Final Physical Exam Narrative GENERAL: Ill looking, delirious HEENT: Atraumatic; normocephalic EYES; Anicteric, Normal Conjunctiva NECK; supple, normal thyroid, RESPIRATORY: Diminished to auscultation CARDIOVASCULAR: Regular S1 S2, GI: soft, normoactive bowel sounds, : No Renal angle tenderness; EXTREMITIES: edema, no clubbing, MUSCULOSKELETAL: no muscle wasting NEURO: Awake; no lateralizing signs. SKIN: No Rash PSYCH; Flat affect Assessment & Plan Assessment/Plan (1) Sepsis: PLAN: Plan Patient is a 62-year-old gentleman with multiple comorbidities admitted with acute alcohol withdrawal. Patient had recently been discharged from the hospital of right SNF placement which he refused. He was also found to be hypotensive with acute cystitis on admission. 1. Sepsis ? Secondary to acute cystitis as evidenced by the presence of an infection, SIRScriteria as well as evidence of endorgan dysfunction with acute kidney injury aswell as hypotension. Sepsis protocol initiated ordered lactic acid level blood cultures patient already on Rocephin patient resuscitated with IV fluids per protocol transferred to the intensive care unit in guarded ordered for PICC line. If patient does not respond to fluid resuscitation plan will be to start patient on norepinephrine. Consult placed to washer cutter ? 05/11/2023; patient remains in ICU did not require manage blood pressure remainssoft ? 05/13/2023; patient blood pressure has stabilized 2. Chronic alcohol dependence with acute alcohol withdrawal ? Admitted to regular nursing floor managed with phenobarb taper.? Patient progressed being monitored with CIWA protocol ? 05/11/2023 patient remains on phenobarb taper ? 05/13/2023; phenobarb was discontinued given increasing lethargy ? 05/14/2023; patient is delirious this a.m. Phenobarb has been weaned off the day prior. 3. Acute kidney injury ? Patient started on IV fluids subsequent monitoring of electrolytes ordered ? 05/12/2023; patient kidney function continues to worsen will continue with IV fluids. Patient was on vancomycin and Zosyn vancomycin discontinued given worsening kidney ?05/13/2023 consult was placed to nephrology given worsening kidney function. Renal ultrasound obtained the day prior came back unremarkable ? 05/14/2023; kidney function continues to worsen continuous monitoring ordered 4. Mild hyponatremia ? Secondary to chronic alcohol abuse monitoring 5. Coagulopathy ? Secondary to chronic liver disease from patient chronic alcohol use 6. Acute transaminitis ? Monitoring 7.? Diabetes mellitus type II -Continue patient on his home regimen in addition to Accu-Cheks before meals andat bedtime with sliding scale coverage 8.? Sick sinus syndrome ? Status post pacemaker placement 9.? History of ascending aortic dissection ? Status post repair 10.? Valvular heart disease - history of aortic valve replacement with bioprosthetic material 11.? Hypertension - Blood pressure low on admission antihypertensives held 12. Dyslipidemia -Patient is on statin therapy, continued at home dose 13. GERD ? On famotidine 14. Thrombocytopenia ? Patient has had a precipitous drop in his platelet count. No bleeding at thispoint we will continue to monitor 05/14/2023 platelet count trending up we will continue with monitoring 15. Anemia ? Suspected to be secondary to anemia of chronic disorder monitoring H&H with plans to transfuse if patient becomes symptomatic or hemoglobin falls below 7 16. DVT prophylaxis ? SCDs only given that patient coagulopathic 17. Physical deconditioning - Requested for PT OT eval and transition social worker to assist with discharge planning Time spent in the patient's overall evaluation,decision-making process, review of diagnostic data, adjustment of management, discussion with other providers, nursing nursing and ancillary staff involved in patient's care documentation, 35 Minutes Charges/Coding Visit Charges Inpatient E&M: 78305 Subs Hosp L2 05/14/23 0955 <Electronically signed by Conrado Morel MD> Cosigner Signature (if applicable): CC: ~ Signed [facility] Work Phone: 1(599) 412-620304-04-2024 Progress note Author Conrado [facility] May 13, 2023 8:53am Note Date/Time May 13, 2023 8:50 am [facility] Medical Records Department [address] [place] [address] Progress Note - Hospitalist 05/13/23 0850 MR#: [id number] Acct: [id number] Name: DARRINDARNELLANALILIAHERMANN KAUFFMAN Rep #:[id number] : 1960 62 From: Conrado Morel MD PCP: ALAN Chahal tus:ADM IN Location: ICU CVICU20 1-1 Reason for Visit Reason for Visit: Diagnoses Sepsis, unspecified organism (05/09/23) Unspecified severe protein-calorie malnutrition (05/09/23) Alcohol abuse, uncomplicated (05/09/23) Alcohol dependence, uncomplicated (05/09/23) Alcohol use, unspecified with withdrawal, uncomplicated (05/09/23) Alcohol-induced chronic pancreatitis (05/09/23) Acute cystitis without hematuria (05/09/23) Patient's noncompliance with other medical treatment and regimen due to unspecified reason (05/09/23) Subjective Subjective Patient seen. Had a relatively uneventful night. Kidney function continues to worsen consult has been placed to nephrology. Renal ultrasound came back unremarkable Objective Data Objective Data Vital Signs: Vital Signs Temp Pulse Resp BP Pulse Ox O2 Del Method O2 Flow Rate 97.8 F 73 18 110/72 100 Bi-pap 2 05/13/23 08:08 05/13/23 08:17 05/13/23 08:08 05/13/23 08:08 05/13/23 08:08 05/13/23 08:08 05/12/23 21:20 FiO2 30 05/13/23 08:08 Oxygen Flow Rate (L/min) 2 Oxygen Delivery Method Bi-pap Weight: 85.8 kg Body Mass Index (BMI) 26.4 Intake & Output: Intake and Output for Last 24 Hours 05/11/23 05/12/23 05/13/23 23:59 23:59 23:59 Intake Total 2211.25 / 2211.25 1790.00 / 1790.00 160 / 160 Output Total 650 / 850 1350 / 1350 200 / 200 Balance 1561.25 / 1361.25 440.00 / 440.00 -40 / -40 Lab / Micro Data 05/13/23 04:20 05/13/23 04:20 Labs: Laboratory Results - last 24 hr 05/12/23 08:25: Iron 46 L, TIBC 46 L, Iron Saturation 100.0 H, Vitamin B12 > 2000 H 05/12/23 08:44: POC Glucose 89 05/12/23 11:53: POC Glucose 147 H 05/12/23 16:25: POC Glucose 179 H 05/12/23 21:13: POC Glucose 197 H 05/13/23 04:20: WBC 9.5, RBC 2.48 L, Hgb 8.4 L, Hct 26.0 L, MCV 104.8 H, MCH 33.9 H, MCHC 32.3, RDW Std Deviation 60.0 H, RDW Coeff of Kalpana 15.6 H, Plt Count 31 L*, MPV 12.4 H, Immature Gran % (Auto) 1.200 H, Neut % (Auto) 79.2 H, Lymph %(Auto) 7.4 L, Erath % (Auto) 9.6, Eos % (Auto) 2.0, Baso % (Auto) 0.6, Absolute Neuts (auto) 7.6, Absolute Lymphs (auto) 0.70 L, Nucleated RBC % 0, Diff Path Review May foll, Platelet Estimate MOD DEC, Sodium 140, Potassium 4.6, Chloride 105, Carbon Dioxide 32.0, Anion Gap 3 L, BUN 28 H, Creatinine 2.85 H, Estim Creat Clear Calc 29.36, Est GFR (MDRD) Af Amer 29 L, Est GFR (MDRD) Non-Af 24 L,BUN/Creatinine Ratio 9.8 L, Glucose 166 H, Calcium 7.5 L, Total Bilirubin 0.60, AST 85 H, ALT 32, Alkaline Phosphatase 142 H, Total Protein 4.2 L, Albumin 1.0 L, Globulin 3.2, Albumin/Globulin Ratio 0.3 L 05/13/23 06:27: POC Glucose 151 H Micro: Microbiology 05/10/23 17:30 Urine Catheter - Catheter Urine Culture - Final Escherichia coli 05/12/23 17:50 Stool Stool Occult Blood (IBIS) - Final Occult Blood Positive 05/10/23 12:40 Blood Culture (Wb) - Arm Left Blood Culture - Preliminary No growth in 48 hours. 05/10/23 10:35 Blood Culture (Wb) - Left Hand Blood Culture - Preliminary No growth in 48 hours. 05/09/23 21:31 Urine, Clean Catch Legionella Antigen - Final 05/09/23 21:31 Urine, Clean Catch Streptococcus pneumoniae Antigen (M - Final Physical Exam Narrative GENERAL: Ill looking HEENT: Atraumatic; normocephalic EYES; Anicteric, Normal Conjunctiva NECK; supple, normal thyroid, RESPIRATORY: Diminished to auscultation CARDIOVASCULAR: Regular S1 S2, GI: soft, normoactive bowel sounds, : No Renal angle tenderness; EXTREMITIES: edema, no clubbing, MUSCULOSKELETAL: no muscle wasting NEURO: Awake; no lateralizing signs. SKIN: No Rash PSYCH; Flat affect Assessment & Plan Assessment/Plan (1) Sepsis: PLAN: Plan Patient is a 62-year-old gentleman with multiple comorbidities admitted with acute alcohol withdrawal. Patient had recently been discharged from the hospital of right SNF placement which he refused. He was also found to be hypotensive with acute cystitis on admission. 1. Sepsis ? Secondary to acute cystitis as evidenced by the presence of an infection, SIRScriteria as well as evidence of endorgan dysfunction with acute kidney injury aswell as hypotension. Sepsis protocol initiated ordered lactic acid level blood cultures patient already on Rocephin patient resuscitated with IV fluids per protocol transferred to the intensive care unit in guarded ordered for PICC line. If patient does not respond to fluid resuscitation plan will be to start patient on norepinephrine. Consult placed to washer cutter ? 05/11/2023; patient remains in ICU did not require manage blood pressure remainssoft ? 05/13/2023; patient blood pressure has stabilized 2. Chronic alcohol dependence with acute alcohol withdrawal ? Admitted to regular nursing floor managed with phenobarb taper.? Patient progressed being monitored with CIWA protocol ? 05/11/2023 patient remains on phenobarb taper ? 05/13/2023; phenobarb was discontinued given increasing lethargy 3. Acute kidney injury ? Patient started on IV fluids subsequent monitoring of electrolytes ordered ? 05/12/2023; patient kidney function continues to worsen will continue with IV fluids. Patient was on vancomycin and Zosyn vancomycin discontinued given worsening kidney ?05/13/2023 consult was placed to nephrology given worsening kidney function. Renal ultrasound obtained the day prior came back unremarkable 4. Mild hyponatremia ? Secondary to chronic alcohol abuse monitoring 5. Coagulopathy ? Secondary to chronic liver disease from patient chronic alcohol use 6. Acute transaminitis ? Monitoring 7.? Diabetes mellitus type II -Continue patient on his home regimen in addition to Accu-Cheks before meals andat bedtime with sliding scale coverage 8.? Sick sinus syndrome ? Status post pacemaker placement 9.? History of ascending aortic dissection ? Status post repair 10.? Valvular heart disease - history of aortic valve replacement with bioprosthetic material 11.? Hypertension - Blood pressure low on admission antihypertensives held 12. Dyslipidemia -Patient is on statin therapy, continued at home dose 13. GERD ? On famotidine 14. Thrombocytopenia ? Patient has had a precipitous drop in his platelet count. No bleeding at thispoint we will continue to monitor 15. Anemia ? Suspected to be secondary to anemia of chronic disorder monitoring H&H with plans to transfuse if patient becomes symptomatic or hemoglobin falls below 7 16. DVT prophylaxis ? SCDs only given that patient coagulopathic Time spent in the patient's overall evaluation,decision-making process, review of diagnostic data, adjustment of management, discussion with other providers, nursing nursing and ancillary staff involved in patient's care documentation, 40 Minutes Charges/Coding Visit Charges Inpatient E&M: 17875 Subs Hosp L2 05/13/23 0853 <Electronically signed by Conrado Morel MD> Cosigner Signature (if applicable): CC: ~ Signed [facility] Work Phone: 1(527) 510-751504-04-2024 Progress note Author Barry Sheehan [facility] May 13, 2023 8:28am Note Date/Time May 13, 2023 7:23 am [facility] Medical Records Department [address] [place] [address] Progress Note - Counterperson 05/13/2321 MR#: [id number] Acct: [id number] Name: ANALILIA MELENDREZ Rep #:[id number] : 1960 62 From: Barry Sheehan DO PCP: ALAN Chahal tus:ADM IN Location: ICU CVICU20 1-1 Assessment & Plan Assessment/Plan (1) Sepsis: PLAN: Plan RECOMMENDATIONS: 1. Continue antibiotics to complete 7 days of therapy. 2. Continue thiamine and folic acid. 3. Encourage incentive spirometer use and mobilize patient as tolerated. 4. Transfuse if hemoglobin drops below 7 g/dL. Continue PPI therapy. 5. Will sign off from a critical care perspective. Please call with any additional questions. IMPRESSIONS: 1. Sepsis The patient presented to the hospital with sepsis due to right lower lobe pneumonia with acute sepsis related organ dysfunction as evidenced by lactic acidemia. Plan to continue empiric broad-spectrum antimicrobials to complete 7 days of therapy. The patient did receive supplemental IV fluid hydration and remains hemodynamically stable. 2. Acute kidney injury Most likely prerenal in etiology in the setting #1. Continue to monitor urine output for now. There is no current indication for renal replacement therapy. Renal ultrasound was unremarkable. If renal function continues to worsen, consider nephrology consultation. 3. History of alcohol dependency/medical noncompliance/hypertension/diabetes mellitus/coronary artery disease/valvular heart disease/anemia Complicates care, management, recovery and prognosis. Continue supportive care as noted above. Continue symptomatic management of any alcohol withdrawal symptoms. Recommend continuing to monitor H&H daily. Transfuse if hemoglobin drops below 7 g/dL. This note was generated with [employer] dictation software. It may contain incorrectwords, spelling, and punctuation that were not noted in checking the note beforesigning. Subjective Subjective The patient was seen and examined at the bedside this morning. Events from the last 24 hours have been reviewed. The patient remains afebrile hemodynamically stable. Hemoglobin is stable at 8.4 g/dL this morning with a platelet count of 31,000. Creatinine has increased to 2.85. No overnight issues were identified by the nursing staff. Objective Data Objective Data The patient's most recent lab work, culture data and imaging studies have all been personally reviewed. Infectious workup has been unrevealing to date. Vital Signs: Vital Signs Temp Pulse Resp BP Pulse Ox O2 Del Method O2 Flow Rate 97 F L 80 16 124/92 H 99 Bi-pap 2 05/13/23 06:32 05/13/23 06:32 05/13/23 06:32 05/13/23 06:32 05/13/23 06:32 05/13/23 06:32 05/12/23 21:20 FiO2 30 05/13/23 06:32 Oxygen Flow Rate (L/min) 2 Oxygen Delivery Method Bi-pap Weight: 189 lb 2.506 oz Body Mass Index (BMI) 26.4 Intake & Output: Intake and Output for Last 24 Hours 05/11/23 05/12/23 05/13/23 23:59 23:59 23:59 Intake Total 2211.25 / 2211.25 1790.00 / 1790.00 50 / 50 Output Total 650 / 850 1350 / 1350 200 / 200 Balance 1561.25 / 1361.25 440.00 / 440.00 -150 / -150 Lab / Micro Data Attestation: I reviewed the patient's lab results. 05/13/23 04:20 05/13/23 04:20 Labs: Laboratory Results - last 24 hr 05/12/23 06:50: Blood Type O NEGATIVE, Antibody Screen NEGATIVE 05/12/23 08:25: Immature Plt Fraction 10.0 H, Retic Count 1.44, Immature Retic Fraction 8.50, Retic Hgb Equivalent 31.7, Iron 46 L, TIBC 46 L, Iron Saturation 100.0 H, Vitamin B12 > 2000 H 05/12/23 08:44: POC Glucose 89 05/12/23 11:53: POC Glucose 147 H 05/12/23 16:25: POC Glucose 179 H 05/12/23 21:13: POC Glucose 197 H 05/13/23 04:20: WBC 9.5, RBC 2.48 L, Hgb 8.4 L, Hct 26.0 L, MCV 104.8 H, MCH 33.9 H, MCHC 32.3, RDW Std Deviation 60.0 H, RDW Coeff of Kalpnaa 15.6 H, Plt Count 31 L*, MPV 12.4 H, Immature Gran % (Auto) 1.200 H, Neut % (Auto) 79.2 H, Lymph %(Auto) 7.4 L, Erath % (Auto) 9.6, Eos % (Auto) 2.0, Baso % (Auto) 0.6, Absolute Neuts (auto) 7.6, Absolute Lymphs (auto) 0.70 L, Nucleated RBC % 0, Diff Path Review June, Platelet Estimate MOD DEC, Sodium 140, Potassium 4.6, Chloride 105, Carbon Dioxide 32.0, Anion Gap 3 L, BUN 28 H, Creatinine 2.85 H, Estim Creat Clear Calc 29.36, Est GFR (MDRD) Af Amer 29 L, Est GFR (MDRD) Non-Af 24 L,BUN/Creatinine Ratio 9.8 L, Glucose 166 H, Calcium 7.5 L, Total Bilirubin 0.60, AST 85 H, ALT 32, Alkaline Phosphatase 142 H, Total Protein 4.2 L, Albumin 1.0 L, Globulin 3.2, Albumin/Globulin Ratio 0.3 L 05/13/23 06:27: POC Glucose 151 H Micro: Microbiology 05/12/23 17:50 Stool Stool Occult Blood (IBIS) - Final Occult Blood Positive 05/10/23 12:40 Blood Culture (Wb) - Arm Left Blood Culture - Preliminary No growth in 48 hours. 05/10/23 10:35 Blood Culture (Wb) - Left Hand Blood Culture - Preliminary No growth in 48 hours. 05/10/23 17:30 Urine Catheter - Catheter Urine Culture - Preliminary Gram negative megan 05/09/23 21:31 Urine, Clean Catch Legionella Antigen - Final 05/09/23 21:31 Urine, Clean Catch Streptococcus pneumoniae Antigen (M - Final ABG Data ABG results: ABG 05/12/23 02:17 Specimen Type ART Sample Site R Radial pH 7.42 Bicarbonate Actual 30.7 H Total CO2 32 Base Excess 6 H O2 Saturation 98 O2 % 30.0 ABG pCO2 47.3 H ABG pO2 112 H Cipriano Test Positive O2 Delivery Device BiPAP Vent Mode NIV Clinical Comments 23/09 14 30% Radiography Diagnostic Testing: Radiology Impression Renal Ultrasound 05/11/23 07:22 IMPRESSION: Normal ultrasound of the kidneys. Small amount of free fluid is seen in the pelvis. Electronically Signed: Carlos Campos MD at 13:20 EDT , Physical Exam Const alert and no apparent distress HEENT normocephalic and head/scalp atraumatic Eyes PERRL, EOMs intact bilaterally and conjunctivae normal Neck supple General: trachea midline Chest inspection of chest normal Resp normal respiratory effort Auscultation: diminished lung sounds; Negative for rales, rhonchi or wheezes Cardio regular rate and regular rhythm Heart Sounds: murmur GI soft to palpation and non-tender Extremity no clubbing, cyanosis or edema Skin no rashes or lesions noted Neuro CN's II-XII intact bilaterally, moves all extremities and no focal motor deficits Psych Mood & Affect: flat affect Charges/Coding Visit Charges Inpatient E&M: 62848 Subs Hosp L2 05/13/23 0828 <Electronically signed by Barry Sheehan DO> Cosigner Signature (if applicable): CC: ~ Signed [facility] Work Phone: 1(105) 876-191904-03-2024 Progress note Author Barry Sheehan [facility] May 12, 2023 9:16am Note Date/Time May 12, 2023 6:48 am [facility] Medical Records Department [address] [place] [address] Progress Note - Counterperson 05/12/2346 MR#: [id number] Acct: [id number] Name: ANEESHANALILIA JAMARI Rep #:[id number] : 1960 62 From: Barry Sheehan DO PCP: Andreas Pathak, ALAN Ball tus:ADM IN Location: ICU CVICU20 1-1 Assessment & Plan Assessment/Plan (1) Sepsis: PLAN: Plan RECOMMENDATIONS: 1. Continue empiric antibiotics pending culture results. 2. Continue thiamine and folic acid. 3. Consider discontinuation of phenobarbital taper and initiation of as needed Ativan. 4. Encourage incentive spirometer use and mobilize patient as tolerated. 5. Send type and screen. Transfuse if hemoglobin drops below 7 g/dL. ContinuePPI therapy. IMPRESSIONS: 1. Sepsis The patient presented to the hospital with sepsis due to possible UTI versus evolving right lower lobe pneumonia with acute sepsis related organ dysfunction as evidenced by lactic acidemia. Plan to continue empiric broad-spectrum antimicrobials, pending finalized culture results. The patient did receive supplemental IV fluid hydration. Although blood pressures are still borderline,the patient has never required any vasopressor support. 2. Acute kidney injury Most likely prerenal in etiology in the setting #1. Continue to monitor urine output for now. There is no current indication for renal replacement therapy. Renal ultrasound was unremarkable. If renal function continues to worsen, consider nephrology consultation. 3. History of alcohol dependency/medical noncompliance/hypertension/diabetes mellitus/coronary artery disease/valvular heart disease/anemia Complicates care, management, recovery and prognosis. Continue supportive care as noted above. Continue symptomatic management of any alcohol withdrawal symptoms. Recommend continuing to monitor H&H daily. Transfuse if hemoglobin drops below 7 g/dL. Send type and screen today along with stool for occult blood. If positive, consider gastroenterology consultation. This note was generated with Huitongda dictation software. It may contain incorrectwords, spelling, and punctuation that were not noted in checking the note beforesigning. Subjective Subjective The patient was seen and examined at the bedside this morning. Events from the last 24 hours have been reviewed. The patient is currently afebrile, hemodynamically stable and maintaining appropriate oxygen saturations on room air. According to nursing report, the patient became more lethargic overnight, which was presumed to be secondary to the phenobarbital that the patient was receiving. That medication has since been placed on hold. Hemoglobin this morning was noted to be 7.4 g/dL with a platelet count of 29,000. Creatinine iselevated at 2.61. Objective Data Objective Data The patient's most recent lab work, culture data and imaging studies have all been personally reviewed. Blood and urine cultures are pending. Vital Signs: Vital Signs Temp Pulse Resp BP Pulse Ox O2 Del Method O2 Flow Rate 97.6 F L 97 22 H 88/66 L 99 Room Air 8 05/12/23 05:29 05/12/23 05:29 05/12/23 05:29 05/12/23 05:29 05/12/23 05:29 05/12/23 05:29 05/12/23 02:00 FiO2 40 05/12/23 04:15 Oxygen Flow Rate (L/min) 8 Oxygen Delivery Method Room Air Weight: 184 lb 11.958 oz Body Mass Index (BMI) 25.7 Intake & Output: Intake and Output for Last 24 Hours 05/10/23 05/11/23 05/12/23 23:59 23:59 23:59 Intake Total 4333.67 / 4333.67 2211.25 / 2211.25 50 / 50 Output Total 200 / 400 650 / 850 400 / 400 Balance 4133.67 / 3933.67 1561.25 / 1361.25 -350 / -350 Lab / Micro Data Attestation: I reviewed the patient's lab results. 05/12/23 04:10 05/12/23 04:10 Labs: Laboratory Results - last 24 hr 05/11/23 05:35: Plt Count 38 L*, Diff Path Review Reviewed 05/11/23 09:33: POC Glucose 154 H 05/11/23 12:42: POC Glucose 151 H 05/11/23 17:19: POC Glucose 161 H 05/11/23 21:48: POC Glucose 132 H 05/12/23 02:30: Ammonia 27.0 05/12/23 04:10: WBC 10.7, RBC 2.19 L, Hgb 7.4 L, Hct 23.4 L, MCV 106.8 H, MCH 33.8 H, MCHC 31.6 L, RDW Std Deviation 61.6 H, RDW Coeff of Kalpana 15.7 H, Plt Count 29 L*, MPV 13.1 H, Immature Gran % (Auto) 1.300 H, Neut % (Auto) 82.9 H, Lymph % (Auto) 5.3 L, Erath % (Auto) 8.3, Eos % (Auto) 1.9, Baso % (Auto) 0.3, Absolute Neuts (auto) 8.9 H, Absolute Lymphs (auto) 0.57 L, Nucleated RBC % 0, Differential Comment SCANNED, Platelet Estimate MKD DEC, Sodium 138, Potassium 4.1, Chloride 102, Carbon Dioxide 35.0 H, Anion Gap 1 L, BUN 27 H, Creatinine 2.61 H, Estim Creat Clear Calc 32.06, Est GFR (MDRD) Af Amer 32 L, Est GFR (MDRD) Non-Af 27 L, BUN/Creatinine Ratio 10.3, Glucose 93, Calcium 7.4 L, Total Bilirubin 0.60, AST 48 H, ALT 23, Alkaline Phosphatase 103, Total Protein 3.7 L,Albumin 1.1 L, Globulin 2.6, Albumin/Globulin Ratio 0.4 L Micro: Microbiology 05/10/23 17:30 Urine Catheter - Catheter Urine Culture - Preliminary Gram negative megan Gram negative megan#2 05/09/23 21:31 Urine, Clean Catch Legionella Antigen - Final 05/09/23 21:31 Urine, Clean Catch Streptococcus pneumoniae Antigen (M - Final ABG Data ABG results: ABG 05/12/23 02:17 Specimen Type ART Sample Site R Radial pH 7.42 Bicarbonate Actual 30.7 H Total CO2 32 Base Excess 6 H O2 Saturation 98 O2 % 30.0 ABG pCO2 47.3 H ABG pO2 112 H Cipriano Test Positive O2 Delivery Device BiPAP Vent Mode NIV Clinical Comments 16/8 14 30% Radiography Diagnostic Testing: Radiology Impression Renal Ultrasound 05/11/23 07:22 IMPRESSION: Normal ultrasound of the kidneys. Small amount of free fluid is seen in the pelvis. Electronically Signed: Carlos Campos MD at 13:20 EDT , Physical Exam Const alert and no apparent distress Constitutional Narrative: Confused and disoriented. HEENT normocephalic and head/scalp atraumatic Eyes PERRL, EOMs intact bilaterally and conjunctivae normal Neck supple General: trachea midline Chest inspection of chest normal Resp normal respiratory effort Auscultation: diminished lung sounds; Negative for rales, rhonchi or wheezes Cardio regular rate and regular rhythm Heart Sounds: murmur GI soft to palpation and non-tender Extremity no clubbing, cyanosis or edema Skin no rashes or lesions noted Neuro CN's II-XII intact bilaterally, moves all extremities and no focal motor deficits Psych Mood & Affect: flat affect Charges/Coding Visit Charges Inpatient E&M: 33322 Subs Hosp L2 05/12/23 0916 <Electronically signed by Barry Sheehan DO> Cosigner Signature (if applicable): CC: ~ Signed [facility] Work Phone: 1(198) 535-811804-03-2024 Progress note Author Conrado Morel [facility] May 12, 2023 7:33am Note Date/Time May 12, 2023 7:17 am [facility] Medical Records Department [address] [place] [id number] Progress Note - Hospitalist 05/12/23 0717 MR#: [id number] Acct: [id number] Name: ANALILIA MELENDREZ Rep #:[id number] : 1960 62 From: Conrado Morel MD PCP: ALAN Chahal tus:ADM IN Location: ICU CVICU20 1-1 Reason for Visit Reason for Visit: Diagnoses Sepsis, unspecified organism (05/09/23) Unspecified severe protein-calorie malnutrition (05/09/23) Alcohol abuse, uncomplicated (05/09/23) Alcohol dependence, uncomplicated (05/09/23) Alcohol use, unspecified with withdrawal, uncomplicated (05/09/23) Alcohol-induced chronic pancreatitis (05/09/23) Acute cystitis without hematuria (05/09/23) Patient's noncompliance with other medical treatment and regimen due to unspecified reason (05/09/23) Subjective Subjective Patient seen significant drop in his platelet count, From 133 on admission to 29. Hemoglobin did drop from 11.2-7.4. Did undertake iron studies as well as B12 and folic acid level Objective Data Objective Data Vital Signs: Vital Signs Temp Pulse Resp BP Pulse Ox O2 Del Method O2 Flow Rate 97.6 F L 97 22 H 88/66 L 99 Room Air 8 05/12/23 05:29 05/12/23 05:29 05/12/23 05:29 05/12/23 05:29 05/12/23 05:29 05/12/23 05:29 05/12/23 02:00 FiO2 40 05/12/23 04:15 Oxygen Flow Rate (L/min) 8 Oxygen Delivery Method Room Air Weight: 83.8 kg Body Mass Index (BMI) 25.7 Intake & Output: Intake and Output for Last 24 Hours 05/10/23 05/11/23 05/12/23 23:59 23:59 23:59 Intake Total 4333.67 / 4333.67 2211.25 / 2211.25 50 / 50 Output Total 200 / 400 650 / 850 400 / 400 Balance 4133.67 / 3933.67 1561.25 / 1361.25 -350 / -350 Lab / Micro Data 05/12/23 04:10 05/12/23 04:10 Labs: Laboratory Results - last 24 hr 05/11/23 05:35: Plt Count 38 L*, Diff Path Review Reviewed 05/11/23 09:33: POC Glucose 154 H 05/11/23 12:42: POC Glucose 151 H 05/11/23 17:19: POC Glucose 161 H 05/11/23 21:48: POC Glucose 132 H 05/12/23 02:30: Ammonia 27.0 05/12/23 04:10: WBC 10.7, RBC 2.19 L, Hgb 7.4 L, Hct 23.4 L, MCV 106.8 H, MCH 33.8 H, MCHC 31.6 L, RDW Std Deviation 61.6 H, RDW Coeff of Kalpana 15.7 H, Plt Count 29 L*, MPV 13.1 H, Immature Gran % (Auto) 1.300 H, Neut % (Auto) 82.9 H, Lymph % (Auto) 5.3 L, Erath % (Auto) 8.3, Eos % (Auto) 1.9, Baso % (Auto) 0.3, Absolute Neuts (auto) 8.9 H, Absolute Lymphs (auto) 0.57 L, Nucleated RBC % 0, Differential Comment SCANNED, Platelet Estimate MKD DEC, Sodium 138, Potassium 4.1, Chloride 102, Carbon Dioxide 35.0 H, Anion Gap 1 L, BUN 27 H, Creatinine 2.61 H, Estim Creat Clear Calc 32.06, Est GFR (MDRD) Af Amer 32 L, Est GFR (MDRD) Non-Af 27 L, BUN/Creatinine Ratio 10.3, Glucose 93, Calcium 7.4 L, Total Bilirubin 0.60, AST 48 H, ALT 23, Alkaline Phosphatase 103, Total Protein 3.7 L,Albumin 1.1 L, Globulin 2.6, Albumin/Globulin Ratio 0.4 L Micro: Microbiology 05/10/23 17:30 Urine Catheter - Catheter Urine Culture - Preliminary Gram negative megan Gram negative megan#2 05/09/23 21:31 Urine, Clean Catch Legionella Antigen - Final 05/09/23 21:31 Urine, Clean Catch Streptococcus pneumoniae Antigen (M - Final ABG Data ABG results: ABG 05/12/23 02:17 Specimen Type ART Sample Site R Radial pH 7.42 Bicarbonate Actual 30.7 H Total CO2 32 Base Excess 6 H O2 Saturation 98 O2 % 30.0 ABG pCO2 47.3 H ABG pO2 112 H Cipriano Test Positive O2 Delivery Device BiPAP Vent Mode NIV Clinical Comments 23/09 14 30% Radiography Diagnostic Testing: Radiology Impression Renal Ultrasound 05/11/23 07:22 IMPRESSION: Normal ultrasound of the kidneys. Small amount of free fluid is seen in the pelvis. Electronically Signed: Carlos Campos MD at 13:20 EDT , Physical Exam Narrative GENERAL: Ill looking HEENT: Atraumatic; normocephalic EYES; Anicteric, Normal Conjunctiva NECK; supple, normal thyroid, RESPIRATORY: Diminished to auscultation CARDIOVASCULAR: Regular S1 S2, GI: soft, normoactive bowel sounds, : No Renal angle tenderness; EXTREMITIES: edema, no clubbing, MUSCULOSKELETAL: no muscle wasting NEURO: Awake; no lateralizing signs. SKIN: No Rash PSYCH; Flat affect Assessment & Plan Assessment/Plan (1) Sepsis: PLAN: Plan Patient is a 62-year-old gentleman with multiple comorbidities admitted with acute alcohol withdrawal. Patient had recently been discharged from the hospital of right SNF placement which he refused. He was also found to be hypotensive with acute cystitis on admission. 1. Sepsis ? Secondary to acute cystitis as evidenced by the presence of an infection, SIRScriteria as well as evidence of endorgan dysfunction with acute kidney injury aswell as hypotension. Sepsis protocol initiated ordered lactic acid level blood cultures patient already on Rocephin patient resuscitated with IV fluids per protocol transferred to the intensive care unit in guarded ordered for PICC line. If patient does not respond to fluid resuscitation plan will be to start patient on norepinephrine. Consult placed to washer cutter ? 05/11/2023; patient remains in ICU did not require manage blood pressure remainssoft 2. Chronic alcohol dependence with acute alcohol withdrawal ? Admitted to regular nursing floor managed with phenobarb taper.? Patient progressed being monitored with CIWA protocol ? 05/11/2023 patient remains on phenobarb taper 3. Acute kidney injury ? Patient started on IV fluids subsequent monitoring of electrolytes ordered ? 05/12/2023; patient kidney function continues to worsen will continue with IV fluids. Patient was on vancomycin and Zosyn vancomycin discontinued given worsening kidney 4. Mild hyponatremia ? Secondary to chronic alcohol abuse monitoring 5. Coagulopathy ? Secondary to chronic liver disease from patient chronic alcohol use 6. Acute transaminitis ? Monitoring 7.? Diabetes mellitus type II -Continue patient on his home regimen in addition to Accu-Cheks before meals andat bedtime with sliding scale coverage 8.? Sick sinus syndrome ? Status post pacemaker placement 9.? History of ascending aortic dissection ? Status post repair 10.? Valvular heart disease - history of aortic valve replacement with bioprosthetic material 11.? Hypertension - Blood pressure low on admission antihypertensives held 12. Dyslipidemia -Patient is on statin therapy, continued at home dose 13. GERD ? On famotidine 14. Thrombocytopenia ? Patient has had a precipitous drop in his platelet count. No bleeding at thispoint we will continue to monitor 15. Anemia ? Suspected to be secondary to anemia of chronic disorder monitoring H&H with plans to transfuse if patient becomes symptomatic or hemoglobin falls below 7 16. DVT prophylaxis ? SCDs only given that patient coagulopathic Time spent in the patient's overall evaluation,decision-making process, review of diagnostic data, adjustment of management, discussion with other providers, nursing nursing and ancillary staff involved in patient's care documentation, 52 Minutes Charges/Coding Visit Charges Inpatient E&M: 89175 Subs Hosp L3 05/12/23 0733 <Electronically signed by Conrado Morel MD> Cosigner Signature (if applicable): CC: ~ Signed [facility] Work Phone: 1(711) 294-773104-03-2024 Progress note Author Iman Aguayo [facility] May 12, 2023 6:24am Note Date/Time May 12, 2023 1:57 am [facility] Medical Records Department [address] [place] [address] Progress Note - Hospitalist 05/12/23 0156 MR#: [id number] Acct: [id number] Name: ANALILIA MELENDREZ Rep #:[id number] : 1960 62 From: Iman Aguayo MD PCP: ALAN Chahal tus:ADM IN Location: ICU CVICU20 1- Hospitalist Note Patient lethargic, possibly component his medication, held. BELKIS history not on CPAP. Will add routine but for now will obtain ABG and place on BIPAP. Will alsoobtain NH. 05/12/23 0157 <Electronically signed by Iman Aguayo MD> Cosigner Signature (if applicable): CC: ~ Signed ADDENDUM by Dr. Iman Aguayo MD on 05/12/23 at 0624 Addendum Restraints placed following NGT placement secondary to patient attempting to remove item. Hgb 7.4, will add guiac and repeat level this afternoon as well as T+S to be cautious, already on IV PPI. 05/12/23 0624<Electronically signed by Iman Aguayo MD> Cosigner Signature (if applicable): cc: ~* Signed [facility] Work Phone: 1(413) 526-317004-02-2024 Consult note Author Barry Sheehan [facility] May 11, 2023 9:46am Note Date/Time May 10, 2023 2:08 pm [facility] Medical Records Department [address] [place] [address] Pharmacokinetic/Renal -Consult 05/10/23 1408 MR#: [id number] Acct: [id number] Name: ANALILIA MELENDREZ JAMARI Rep #:[id number] : 1960 62 From: Yuri Robbins PCP: ALAN Chahal tus:ADM IN Y Location: ICU CVICU20 1- Consult Antibiotic Management Pharmacy has been consulted to manage selected antibiotic: Vancomycin Type of Intervention Type of Consult: New start Suspected Infection Suspected Infection: Sepsis Prior Doses of Antibiotics Prior Doses of Antibiotics Received/Current Regimen: Vancomycin 2000 mg IV x 1 given 05/10/23 @ 1256, patient is also on IV zosyn Q8H Labs Labs: Sodium 134 mmol/L (136-145) L 05/10/23 07:05 Potassium 4.1 mmol/L (3.5-5.1) 05/10/23 07:05 Chloride 94 mmol/L (98-107) L 05/10/23 07:05 Carbon Dioxide 33.0 mmol/L (21.0-32.0) H 05/10/23 07:05 Anion Gap 7 (5-15) 05/10/23 07:05 BUN 14 mg/dL (7-18) 05/10/23 07:05 Creatinine 1.92 mg/dL (0.70-1.30) H 05/10/23 07:05 Est GFR (MDRD) Af Amer 46 mL/min (>60) L 05/10/23 07:05 Est GFR (MDRD) Non-Af 38 mL/min (>60) L 05/10/23 07:05 BUN/Creatinine Ratio 7.3 RATIO (10-20) L 05/10/23 07:05 Glucose 181 mg/dL (74-106) H 05/10/23 07:05 Microbiology Microbiology: Microbiology 05/09/23 21:31 Urine, Clean Catch Legionella Antigen - Final 05/09/23 21:31 Urine, Clean Catch Streptococcus pneumoniae Antigen (M - Final Dosing Weight Weight used for dosin kg Estimated Creatinine Clearance Estimated Creatinine Clearance: ~44 Goal Trough Goal Trough: 15-20 mcg/mL Pharmacy Plan for Drug Dosing Pharmacy Plan for Drug Dosing: Vancomycin 1500 mg IV x 1 given 05/10/23 @ 1256, subsequent dosing of 500 mg IV Q12H Pharmacy Service will continue to monitor and adjust dosing as required. Follow-Up Labs Follow-Up Labs: Trough: Vancomycin Date/Time Labs Ordered Labs to be done on [date and time ordered]: 05/12/23 @ 0030 05/10/23 1409 <Electronically signed by Yuri verdugo> Date _ Yuri Robbins 05/11/23 0946 <Electronically signed by Barry Carbajal O> Cosigner Signature (if applicable): Date Barry Sheehan DO CC: ~ Signed [facility] Work Phone: 1(115) 963-602904-02-2024 Progress note Author Barry Sheehan [facility] May 11, 2023 8:44am Note Date/Time May 11, 2023 7:22 am [facility] Medical Records Department [address] [place] [address] Progress Note - Counterperson 05/11/2320 MR#: [id number] Acct: [id number] Name: ANALILIA MELENDREZ JAMARI Rep #:[id number] : 1960 62 From: Barry Sheehan DO PCP: ALAN Chahal Sta tus:ADM IN Location: ICU CVICU20 1-1 Assessment & Plan Assessment/Plan (1) Sepsis: PLAN: Plan RECOMMENDATIONS: 1. Continue empiric antibiotics pending culture results. 2. Continue thiamine, folic acid and phenobarbital taper. 3. Encourage incentive spirometer use and mobilize patient as tolerated. 4. Renal ultrasound IMPRESSIONS: 1. Sepsis The patient presented to the hospital with sepsis due to possible UTI versus evolving right lower lobe pneumonia with acute sepsis related organ dysfunction as evidenced by lactic acidemia. Plan to continue empiric broad-spectrum antimicrobials, pending finalized culture results. The patient did receive supplemental IV fluid hydration. Although blood pressures are still borderline,the patient has never required any vasopressor support. 2. Acute kidney injury Most likely prerenal in etiology in the setting #1. Continue to monitor urine output for now. There is no current indication for renal replacement therapy. 3. History of alcohol dependency/medical noncompliance/hypertension/diabetes mellitus/coronary artery disease/valvular heart disease/anemia Complicates care, management, recovery and prognosis. Continue supportive care as noted above. Continue symptomatic management of any alcohol withdrawal symptoms. This note was generated with Huitong[employer] dictation software. It may contain incorrectwords, spelling, and punctuation that were not noted in checking the note beforesigning. Subjective Subjective The patient was seen and examined at the bedside this morning. Events from the last 24 hours have been reviewed. The patient is currently afebrile, hemodynamically stable and maintaining appropriate oxygen saturations on 5 L/min via nasal cannula. The patient never had to be initiated on vasopressor support. He is currently documented to be overall net +6.3 L for the hospitalization. White count remains elevated at 14,000. Hemoglobin was noted to be 8.0 g/dL. Chemistry profile was notable for a creatinine of 2.28. The patient continues to report nonspecific abdominal discomfort. Objective Data Objective Data The patient's most recent lab work, culture data and imaging studies have all been personally reviewed. Blood and urine cultures are pending. Vital Signs: Vital Signs Temp Pulse Resp BP Pulse Ox O2 Del Method O2 Flow Rate 97.6 F L 104 H 16 100/79 97 Nasal Cannula 5 05/11/23 04:00 05/11/23 06:00 05/11/23 06:00 05/11/23 06:00 05/11/23 06:00 05/11/23 06:00 05/11/23 06:00 FiO2 40 05/10/23 12:30 Oxygen Flow Rate (L/min) 5 Oxygen Delivery Method Nasal Cannula Weight: 178 lb 12.718 oz Body Mass Index (BMI) 24.9 Intake & Output: Intake and Output for Last 24 Hours 05/09/23 05/10/23 05/11/23 23:59 23:59 23:59 Intake Total 1760 / 1760 4333.67 / 4333.67 801.67 / 801.67 Output Total 200 / 400 400 / 400 Balance 1760 / 1760 4133.67 / 3933.67 401.67 / 401.67 Lab / Micro Data Attestation: I reviewed the patient's lab results. 05/11/23 05:35 05/11/23 05:35 Labs: Laboratory Results - last 24 hr 05/09/23 16:59: Urine Opiates Screen POSITIVE H, Urine Methadone Screen NEGATIVE, Ur Barbiturates Screen POSITIVE H, Ur Phencyclidine Scrn NEGATIVE, Ur Amphetamines Screen NEGATIVE, MDMA (Ecstasy) Screen NEGATIVE, U Benzodiazepines Scrn NEGATIVE, Urine Cocaine Screen NEGATIVE, U Cannabinoids Screen NEGATIVE, UrDrug Screen Comment 05/10/23 07:05: WBC 13.7 H, RBC 2.47 L, Hgb 8.5 L, Hct 26.2 L, MCV 106.1 H, MCH 34.4 H, MCHC 32.4, RDW Std Deviation 63.3 H, RDW Coeff of Kalpana 16.2 H, Plt Count 55 L, MPV 13.1 H, Immature Gran % (Auto) 0.700, Neut % (Auto) 94.5 H, Lymph % (Auto) 2.3 L, Erath % (Auto) 2.0, Eos % (Auto) 0.0, Baso % (Auto) 0.5, Absolute Neuts (auto) 12.9 H, Absolute Lymphs (auto) 0.32 L, Nucleated RBC % 0, Platelet Estimate MOD DEC, Sodium 134 L, Potassium 4.1, Chloride 94 L, Carbon Dioxide 33.0 H, Anion Gap 7, BUN 14, Creatinine 1.92 H, Estim Creat Clear Calc 43.58, Est GFR (MDRD) Af Amer 46 L, Est GFR (MDRD) Non-Af 38 L, BUN/Creatinine Ratio 7.3 L, Glucose 181 H, Calcium 7.5 L, Phosphorus 4.7, Magnesium 2.7 H, Total Bilirubin 0.60, AST 86 H, ALT 34, Alkaline Phosphatase 154 H, Total Protein 4.5 L, Albumin 1.7 L, Globulin 2.8, Albumin/Globulin Ratio 0.6 L, TSH 0.89 05/10/23 10:35: Lactic Acid 4.4 H* 05/10/23 12:40: MRSA (PCR) Negative 05/10/23 13:18: POC Glucose 142 H 05/10/23 15:20: Lactic Acid 3.0 H* 05/10/23 18:20: POC Glucose 133 H 05/10/23 22:48: POC Glucose 147 H 05/11/23 05:35: WBC 13.9 H, RBC 2.32 L, Hgb 8.0 L, Hct 24.6 L, MCV 106.0 H, MCH 34.5 H, MCHC 32.5, RDW Std Deviation 62.4 H, RDW Coeff of Kalpana 16.1 H, MPV 12.2 H, Immature Gran % (Auto) 0.500, Neut % (Auto) 89.8 H, Lymph % (Auto) 2.4 L, Erath% (Auto) 6.0, Eos % (Auto) 0.9, Baso % (Auto) 0.4, Absolute Neuts (auto) 12.5 H,Absolute Lymphs (auto) 0.34 L, Nucleated RBC % 0, Sodium 137, Potassium 4.5, Chloride 99, Carbon Dioxide 34.0 H, Anion Gap 4 L, BUN 22 H, Creatinine 2.28 H, Estim Creat Clear Calc 36.70, Est GFR (MDRD) Af Amer 38 L, Est GFR (MDRD) Non-Af31 L, BUN/Creatinine Ratio 9.6 L, Glucose 175 H, Calcium 7.4 L, Phosphorus 4.0, Magnesium 2.6, Total Bilirubin 0.60, AST 46 H, ALT 27, Alkaline Phosphatase 115,Total Protein 4.0 L, Albumin 1.3 L, Globulin 2.7, Albumin/Globulin Ratio 0.5 L Micro: Microbiology 05/09/23 21:31 Urine, Clean Catch Legionella Antigen - Final 05/09/23 21:31 Urine, Clean Catch Streptococcus pneumoniae Antigen (M - Final Physical Exam Const alert and no apparent distress General Appearance: cooperative HEENT normocephalic and head/scalp atraumatic Eyes PERRL, EOMs intact bilaterally and conjunctivae normal Neck supple General: trachea midline Chest inspection of chest normal Resp normal respiratory effort Auscultation: diminished lung sounds; Negative for rales, rhonchi or wheezes Cardio regular rate and regular rhythm Heart Sounds: murmur GI soft to palpation Palpation: tender Extremity no clubbing, cyanosis or edema Skin no rashes or lesions noted Neuro CN's II-XII intact bilaterally, moves all extremities and no focal motor deficits Psych cooperative and affect normal Charges/Coding Visit Charges Inpatient E&M: 91320 Subs Hosp L2 05/11/23 0844 <Electronically signed by Barry Sheehan DO> Cosigner Signature (if applicable): CC: ~ Signed [facility] Work Phone: 1(373) 314-388104-02-2024 Progress note Author Conrado Morel [facility] May 11, 2023 8:43am Note Date/Time May 11, 2023 7:27 am [facility] Medical Records Department [address] [place] [address] Progress Note - Hospitalist 05/11/23725 MR#: [id number] Acct: [id number] Name: ANALILIA MELENDREZ Rep #:[id number] : 1960 62 From: Conrado Morel MD PCP: Andreas Pathak, VEHICLE MODIFICATION TECHNICIANAstrid Ball tus:ADM IN Location: ICU CVICU20 02-08 Reason for Visit Reason for Visit: Diagnoses Sepsis, unspecified organism (05/09/23) Unspecified severe protein-calorie malnutrition (05/09/23) Alcohol abuse, uncomplicated (05/09/23) Alcohol dependence, uncomplicated (05/09/23) Alcohol use, unspecified with withdrawal, uncomplicated (05/09/23) Alcohol-induced chronic pancreatitis (05/09/23) Acute cystitis without hematuria (05/09/23) Patient's noncompliance with other medical treatment and regimen due to unspecified reason (05/09/23) Subjective Subjective Patient transferred from [facility] to ICU after being diagnosed with severe sepsis. Treatment initiated per protocol with IV fluid antibiotics. Patient did not require pressors. Patient seen this a.m. blood pressure still relatively low with systolic in the 90s. Cultures sent results pending Objective Data Objective Data Vital Signs: Vital Signs Temp Pulse Resp BP Pulse Ox O2 Del Method O2 Flow Rate 97.6 F L 104 H 16 100/79 97 Nasal Cannula 5 05/11/23 04:00 05/11/23 06:00 05/11/23 06:00 05/11/23 06:00 05/11/23 06:00 05/11/23 06:00 05/11/23 06:00 FiO2 40 05/10/23 12:30 Oxygen Flow Rate (L/min) 5 Oxygen Delivery Method Nasal Cannula Weight: 81.1 kg Body Mass Index (BMI) 24.9 Intake & Output: Intake and Output for Last 24 Hours 05/09/23 05/10/23 05/11/23 23:59 23:59 23:59 Intake Total 1760 / 1760 4333.67 / 4333.67 801.67 / 801.67 Output Total 200 / 400 400 / 400 Balance 1760 / 1760 4133.67 / 3933.67 401.67 / 401.67 Lab / Micro Data 05/11/23 05:35 05/11/23 05:35 Labs: Laboratory Results - last 24 hr 05/09/23 16:59: Urine Opiates Screen POSITIVE H, Urine Methadone Screen NEGATIVE, Ur Barbiturates Screen POSITIVE H, Ur Phencyclidine Scrn NEGATIVE, Ur Amphetamines Screen NEGATIVE, MDMA (Ecstasy) Screen NEGATIVE, U Benzodiazepines Scrn NEGATIVE, Urine Cocaine Screen NEGATIVE, U Cannabinoids Screen NEGATIVE, UrDrug Screen Comment 05/10/23 07:05: WBC 13.7 H, RBC 2.47 L, Hgb 8.5 L, Hct 26.2 L, MCV 106.1 H, MCH 34.4 H, MCHC 32.4, RDW Std Deviation 63.3 H, RDW Coeff of Kalpana 16.2 H, Plt Count 55 L, MPV 13.1 H, Immature Gran % (Auto) 0.700, Neut % (Auto) 94.5 H, Lymph % (Auto) 2.3 L, Erath % (Auto) 2.0, Eos % (Auto) 0.0, Baso % (Auto) 0.5, Absolute Neuts (auto) 12.9 H, Absolute Lymphs (auto) 0.32 L, Nucleated RBC % 0, Platelet Estimate MOD DEC, Sodium 134 L, Potassium 4.1, Chloride 94 L, Carbon Dioxide 33.0 H, Anion Gap 7, BUN 14, Creatinine 1.92 H, Estim Creat Clear Calc 43.58, Est GFR (MDRD) Af Amer 46 L, Est GFR (MDRD) Non-Af 38 L, BUN/Creatinine Ratio 7.3 L, Glucose 181 H, Calcium 7.5 L, Phosphorus 4.7, Magnesium 2.7 H, Total Bilirubin 0.60, AST 86 H, ALT 34, Alkaline Phosphatase 154 H, Total Protein 4.5 L, Albumin 1.7 L, Globulin 2.8, Albumin/Globulin Ratio 0.6 L, TSH 0.89 05/10/23 10:35: Lactic Acid 4.4 H* 05/10/23 12:40: MRSA (PCR) Negative 05/10/23 13:18: POC Glucose 142 H 05/10/23 15:20: Lactic Acid 3.0 H* 05/10/23 18:20: POC Glucose 133 H 05/10/23 22:48: POC Glucose 147 H 05/11/23 05:35: WBC 13.9 H, RBC 2.32 L, Hgb 8.0 L, Hct 24.6 L, MCV 106.0 H, MCH 34.5 H, MCHC 32.5, RDW Std Deviation 62.4 H, RDW Coeff of Kalpana 16.1 H, MPV 12.2 H, Immature Gran % (Auto) 0.500, Neut % (Auto) 89.8 H, Lymph % (Auto) 2.4 L, Erath% (Auto) 6.0, Eos % (Auto) 0.9, Baso % (Auto) 0.4, Absolute Neuts (auto) 12.5 H,Absolute Lymphs (auto) 0.34 L, Nucleated RBC % 0, Sodium 137, Potassium 4.5, Chloride 99, Carbon Dioxide 34.0 H, Anion Gap 4 L, BUN 22 H, Creatinine 2.28 H, Estim Creat Clear Calc 36.70, Est GFR (MDRD) Af Amer 38 L, Est GFR (MDRD) Non-Af31 L, BUN/Creatinine Ratio 9.6 L, Glucose 175 H, Calcium 7.4 L, Phosphorus 4.0, Magnesium 2.6, Total Bilirubin 0.60, AST 46 H, ALT 27, Alkaline Phosphatase 115,Total Protein 4.0 L, Albumin 1.3 L, Globulin 2.7, Albumin/Globulin Ratio 0.5 L Micro: Microbiology 05/09/23 21:31 Urine, Clean Catch Legionella Antigen - Final 05/09/23 21:31 Urine, Clean Catch Streptococcus pneumoniae Antigen (M - Final Physical Exam Narrative GENERAL: Ill looking HEENT: Atraumatic; normocephalic EYES; Anicteric, Normal Conjunctiva NECK; supple, normal thyroid, RESPIRATORY: Diminished to auscultation CARDIOVASCULAR: Regular S1 S2, GI: soft, normoactive bowel sounds, : No Renal angle tenderness; EXTREMITIES: edema, no clubbing, MUSCULOSKELETAL: no muscle wasting NEURO: Awake; no lateralizing signs. SKIN: No Rash PSYCH; Flat affect Assessment & Plan Assessment/Plan (1) Sepsis: PLAN: Plan Patient is a 62-year-old gentleman with multiple comorbidities admitted with acute alcohol withdrawal. Patient had recently been discharged from the hospital of right SNF placement which he refused. He was also found to be hypotensive with acute cystitis on admission. 1. Sepsis ? Secondary to acute cystitis as evidenced by the presence of an infection, SIRScriteria as well as evidence of endorgan dysfunction with acute kidney injury aswell as hypotension. Sepsis protocol initiated ordered lactic acid level blood cultures patient already on Rocephin patient resuscitated with IV fluids per protocol transferred to the intensive care unit in guarded ordered for PICC line. If patient does not respond to fluid resuscitation plan will be to start patient on norepinephrine. Consult placed to washer cutter ? 05/11/2023; patient remains in ICU did not require manage blood pressure remainssoft 2. Chronic alcohol dependence with acute alcohol withdrawal ? Admitted to regular nursing floor managed with phenobarb taper.? Patient progressed being monitored with CIWA protocol ? 05/11/2023 patient remains on phenobarb taper 3. Acute kidney injury ? Patient started on IV fluids subsequent monitoring of electrolytes ordered 4. Mild hyponatremia ? Secondary to chronic alcohol abuse monitoring 5. Coagulopathy ? Secondary to chronic liver disease from patient chronic alcohol use 6. Acute transaminitis ? Monitoring 7.? Diabetes mellitus type II -Continue patient on his home regimen in addition to Accu-Cheks before meals andat bedtime with sliding scale coverage 8.? Sick sinus syndrome ? Status post pacemaker placement 9.? History of ascending aortic dissection ? Status post repair 10.? Valvular heart disease - history of aortic valve replacement with bioprosthetic material 11.? Hypertension - Blood pressure low on admission antihypertensives held 12. Dyslipidemia -Patient is on statin therapy, continued at home dose 13. GERD ? On famotidine 14. DVT prophylaxis ? SCDs only given that patient coagulopathic critical time spent in the patient's overall evaluation,decision-making process,review of diagnostic data, adjustment of management, discussion with other providers, nursing nursing and ancillary staff involved in patient's care documentation, 52 Minutes Charges/Coding Visit Charges Inpatient E&M: 81452 Subs Hosp L3 05/11/23 0843 <Electronically signed by Conrado Morel MD> Cosigner Signature (if applicable): CC: ~ Signed [facility] Work Phone: 1(681) 565-825804-02-2024 Progress note Author Conrado Morel [facility] May 11, 2023 7:27am Note Date/Time May 10, 2023 9:56 am [facility] Medical Records Department [address] [place] [address] Progress Note - Hospitalist 05/10/23 0953 MR#: [id number] Acct: [id number] Name: ANALILIA MELENDREZ Rep #:[id number] : 1960 62 From: Conrado Morel MD PCP: Andreas Pathak, ALAN Ball tus:ADM IN Location: ICU CVICU20 02-08 Reason for Visit Reason for Visit: Diagnoses Unspecified severe protein-calorie malnutrition (05/09/23) Alcohol abuse, uncomplicated (05/09/23) Alcohol dependence, uncomplicated (05/09/23) Alcohol use, unspecified with withdrawal, uncomplicated (05/09/23) Alcohol-induced chronic pancreatitis (05/09/23) Acute cystitis without hematuria (05/09/23) Patient's noncompliance with other medical treatment and regimen due to unspecified reason (05/09/23) Objective Data Objective Data Vital Signs: Vital Signs Temp Pulse Resp BP Pulse Ox O2 Del Method O2 Flow Rate 98.7 F 97 16 84/58 L 95 Nasal Cannula 3 05/10/23 09:02 05/10/23 09:02 05/10/23 09:02 05/10/23 09:02 05/10/23 09:02 05/10/23 09:02 05/10/23 09:02 Oxygen Flow Rate (L/min) 3 Oxygen Delivery Method Nasal Cannula Weight: 75.75 kg Body Mass Index (BMI) 23.3 Intake & Output: Intake and Output for Last 24 Hours 05/08/23 05/09/23 05/10/23 23:59 23:59 23:59 Intake Total 1760 / 1760 500 / 500 Balance 1760 / 1760 500 / 500 Lab / Micro Data 05/10/23 07:05 05/10/23 07:05 Labs: Laboratory Results - last 24 hr 05/09/23 13:59: WBC 13.0 H, RBC 3.25 L, Hgb 11.2 L, Hct 33.8 L, MCV 104.0 H, MCH34.5 H, MCHC 33.1, RDW Std Deviation 59.7 H, RDW Coeff of Kalpana 15.7 H, Plt Count 133 L, MPV 12.3 H, Immature Gran % (Auto) 0.800, Neut % (Auto) 92.8 H, Lymph % (Auto) 2.7 L, Erath % (Auto) 3.2, Eos % (Auto) 0.0, Baso % (Auto) 0.5, Absolute Neuts (auto) 12.0 H, Absolute Lymphs (auto) 0.35 L, Nucleated RBC % 0, Platelet Estimate ADEQUATE, Macrocytosis 1+, Sodium 137, Potassium 4.0, Chloride 92 L, Carbon Dioxide 36.0 H, Anion Gap 9, BUN 9, Creatinine 1.50 H, Estim Creat Clear Calc 55.78, Est GFR (MDRD) Af Amer 61, Est GFR (MDRD) Non-Af 51 L, BUN/Creatinine Ratio 6.0 L, Glucose 209 H, Calcium 8.0 L, Total Bilirubin 1.00, Direct Bilirubin 0.48 H, AST 220 H, ALT 56, Alkaline Phosphatase 212 H, Total Protein 5.4 L, Albumin 1.5 L, Globulin 3.9, Prealbumin 8.0 L, Lipase < 10 L 05/09/23 14:15: PT 22.6 H, INR 2.0 05/09/23 16:59: Urine Color Yellow, Urine Clarity Sl. Cloudy, Urine pH 8.0, Ur Specific [place] 1.015, Urine Protein 100 H, Urine Glucose (UA) Normal, Urine Ketones Negative, Urine Occult Blood 250 H, Urine Nitrite Negative, Urine Bilirubin Negative, Urine Urobilinogen Normal, Ur Leukocyte Esterase 500 H, Urine RBC 0-5 SEEN, Urine WBC 50-100 SEEN, Ur Squamous Epith Cells 0 SEEN, UrineBacteria 1+, Urine Mucus 0 SEEN, Ur Drug Screen Comment 05/10/23 07:05: WBC 13.7 H, RBC 2.47 L, Hgb 8.5 L, Hct 26.2 L, MCV 106.1 H, MCH 34.4 H, MCHC 32.4, RDW Std Deviation 63.3 H, RDW Coeff of Kalpana 16.2 H, Plt Count 55 L, MPV 13.1 H, Immature Gran % (Auto) 0.700, Neut % (Auto) 94.5 H, Lymph % (Auto) 2.3 L, Erath % (Auto) 2.0, Eos % (Auto) 0.0, Baso % (Auto) 0.5, Absolute Neuts (auto) 12.9 H, Absolute Lymphs (auto) 0.32 L, Nucleated RBC % 0, Platelet Estimate MOD DEC, Sodium 134 L, Potassium 4.1, Chloride 94 L, Carbon Dioxide 33.0 H, Anion Gap 7, BUN 14, Creatinine 1.92 H, Estim Creat Clear Calc 43.58, Est GFR (MDRD) Af Amer 46 L, Est GFR (MDRD) Non-Af 38 L, BUN/Creatinine Ratio 7.3 L, Glucose 181 H, Calcium 7.5 L, Phosphorus 4.7, Magnesium 2.7 H, Total Bilirubin 0.60, AST 86 H, ALT 34, Alkaline Phosphatase 154 H, Total Protein 4.5 L, Albumin 1.7 L, Globulin 2.8, Albumin/Globulin Ratio 0.6 L, TSH 0.89 Radiography Diagnostic Testing: Radiology Impression Chest X-Ray 05/09/23 14:36 IMPRESSION: Right lower lung infiltrate/atelectasis and trace right pleural effusion. Mild atelectatic changes in the left lung base. Electronically Signed: Jayesh Ludwig MD at 14:50 EDT , Abdomen/Pelvis CT 05/09/23 15:32 IMPRESSION: Fatty hepatic changes with small hypoattenuated nodule. Moderate ascites. Mild wall thickening of the urinary bladder. Possible mild small bowel ileus. Electronically Signed: Cade Jaramillo DO at 16:54 EDT , Assessment & Plan Assessment/Plan (1) Sepsis: PLAN: Plan Patient is a 62-year-old gentleman with multiple comorbidities admitted with acute alcohol withdrawal. Patient had recently been discharged from the hospital of right SNF placement which he refused. He was also found to be hypotensive with acute cystitis on admission. 1. Sepsis ? Secondary to acute cystitis as evidenced by the presence of an infection, SIRScriteria as well as evidence of endorgan dysfunction with acute kidney injury aswell as hypotension. Sepsis protocol initiated ordered lactic acid level blood cultures patient already on Rocephin patient resuscitated with IV fluids per protocol transferred to the intensive care unit in guarded ordered for PICC line. If patient does not respond to fluid resuscitation plan will be to start patient on norepinephrine. Consult placed to washer cutter ? 2. Chronic alcohol dependence with acute alcohol withdrawal ? Admitted to regular nursing floor managed with phenobarb taper.? Patient progressed being monitored with CIWA protocol ? 11/13/2021 less tremulous compared to previous day 3. Acute kidney injury ? Patient started on IV fluids subsequent monitoring of electrolytes ordered 4. Mild hyponatremia ? Secondary to chronic alcohol abuse monitoring 5. Coagulopathy ? Secondary to chronic liver disease from patient chronic alcohol use 6. Acute transaminitis ? Monitoring 7.? Diabetes mellitus type II -Continue patient on his home regimen in addition to Accu-Cheks before meals andat bedtime with sliding scale coverage 8.? Sick sinus syndrome ? Status post pacemaker placement 9.? History of ascending aortic dissection ? Status post repair 10.? Valvular heart disease - history of aortic valve replacement with bioprosthetic material 11.? Hypertension - Blood pressure low on admission antihypertensives held 12. Dyslipidemia -Patient is on statin therapy, continued at home dose 13. GERD ? On famotidine 14. DVT prophylaxis ? SCDs only given that patient coagulopathic critical time spent in the patient's overall evaluation,decision-making process,review of diagnostic data, adjustment of management, discussion with other providers, nursing nursing and ancillary staff involved in patient's care documentation, 75 Minutes Sepsis Attestation Sepsis Alert: Yes Date exam was performed: 05/10/23 Time exam was performed: 10:08 Possible Source of Sepsis: Genitourinary Sepsis Organ Dysfunction Criteria Present: SBP < 90 mmHg or MAP < 65 mmHg and INR > 1.5 or aPTT > 60 sec Fluid Resuscitation Fluid resuscitation indicated?: Yes Fluid Resuscitation ordered: 30 ml/kg fluid bolus ordered Sepsis Note Date exam was performed: 05/10/23 Time exam was performed: 13:47 Sepsis Attestation: Sepsis re-evaluation was performed Response to fluids: Fluid responsive hypotension Charges/Coding Multi Select Codes Hospitalists' Procedures Procedures: 26057 Critical Care 1st Hr and 11742 Advncd Care Plan addl 30 Min 05/10/23 1424 <Electronically signed by Conrado Morel MD> Cosigner Signature (if applicable): CC: ~ Signed ADDENDUM by Dr. Conrado Morel MD on 05/11/23 at 0727 Addendum Physical exam; GENERAL: Ill looking HEENT: Atraumatic; normocephalic EYES; Anicteric, Normal Conjunctiva NECK; supple, normal thyroid, RESPIRATORY: Diminished to auscultation CARDIOVASCULAR: Regular S1 S2, GI: soft, normoactive bowel sounds, : No Renal angle tenderness; EXTREMITIES: No edema, no clubbing, MUSCULOSKELETAL: no muscle wasting NEURO: Awake; no lateralizing signs. SKIN: No Rash PSYCH; Flat affect 05/11/23 07<Electronically signed by Conrado Morel MD> Cosigner Signature (if applicable): cc: ~* Signed [facility] Work Phone: 1(923) 963-753004-02-2024 Consult note Author Barry Sheehan [facility] May 11, 2023 7:20am Note Date/Time May 10, 2023 11:3 7am [facility] Medical Records Department [address] [place] [address] Consultation - Counterperson 05/10/23 1129 MR#: [id number] Acct: [id number] Name: ANALILIA MELENDREZ Rep #:[id number] : 1960 62 From: Barry Sheehan DO PCP: ALAN Chahal tus:ADM IN Location: ICU CVICU20 1-1 Assessment & Plan Assessment/Plan (1) Sepsis: PLAN: Plan RECOMMENDATIONS: 1. Continue fluid resuscitation as ordered. 2. If the patient has persistent hypotension after fluid administration, initiate vasopressor support. 3. Obtain follow-up lactate per protocol. 4. Broaden antimicrobials to vancomycin and Zosyn, as ordered. Check MRSA screen. 5. Symptomatic management of any alcohol withdrawal symptoms. IMPRESSIONS: 1. Sepsis The patient presented to the hospital with sepsis due to possible UTI versus evolving right lower lobe pneumonia with acute sepsis related organ dysfunction as evidenced by lactic acidemia. Given that the patient was just recently hospitalized for 1 week, we will plan to broaden antimicrobials. Recommend follow-up lactate level. Agree with supplemental IV fluid hydration as ordered. If the patient remains persistently hypotensive following fluid resuscitation, vasopressor support will be initiated. Add on urine culture to current orders. 2. Acute kidney injury Most likely prerenal in etiology in the setting #1. Continue volume resuscitation as noted above. Continue to monitor urine output for now. There is no current indication for renal replacement therapy. 3. History of alcohol dependency/medical noncompliance/hypertension/diabetes mellitus/coronary artery disease/valvular heart disease/anemia Complicates care, management, recovery and prognosis. Continue supportive care as noted above. Continue symptomatic management of any alcohol withdrawal symptoms. This note was generated with [employer] software. It may contain incorrectwords, spelling, and punctuation that were not noted in checking the note beforesigning. HPI Consult Data Date of Consult: 05/11/23 HPI Narrative Reason for Consultation: Sepsis HPI Narrative: The patient is a 62-year-old male, with a history as outlined below, who presented to the emergency department via EMS on May 08 with abdominal pain. The patient was just discharged from the hospital on April 26 after having been admitted for a week due to acute alcohol withdrawal. It was recommended that the patient be discharged to a skilled nurse facility. However, the patient refused and opted to be discharged to his father's house. He has continued to drink alcohol since that time. The patient's medical history is also significant for coronary artery disease, history of aortic valve replacement, sick sinus syndrome status post pacemaker, chronic alcoholic pancreatitis and protein calorie malnutrition. On presentation to the emergency department, the patient was initially documented to be afebrile and hemodynamically stable. He was, nevertheless, notably tachycardic. Initial laboratory evaluation revealed a white blood cell count of 13,000. Chemistry profile was notable for a bicarbonate of 36 and creatinine of 1.5. AST was increased to 220. Lipase was normal. Urine analysis was positive for leukocyte Estrace and 1+ urine bacteria. Toxicology screen was positive for opiates and barbiturates. CT abdomen/pelvis demonstrated fatty hepatic changes with moderate ascites and possible mild smallbowel ileus. Chest x-ray demonstrated a possible right lower lobe infiltrate. The patient was initially placed on antibiotics and admitted to the medical surgical floor over concerns for acute cystitis. On the morning of May 09, the patient was transferred to the medical intensive care unit secondary to fluid refractory hypotension. The patient continues to report suprapubic abdominal discomfort. [facility] Medical History AAA (abdominal aortic aneurysm) Abdominal ascites Admitted to alcohol detoxification center Adrenal nodule Alcohol abuse Alcohol dependence Alcohol dependence Alcoholic hepatitis Alcoholism Anxiety Ascending aortic dissection (~2005) Cardiac pacemaker in situ (~06/2016) Chronic pancreatitis Diabetes Diabetes mellitus, type II Essential hypertension Gastric wall thickening Hiatal hernia History of diabetes mellitus HTN (hypertension) Hx of hypercholesterolemia Left carotid bruit Myocardial infarct Non-sustained ventricular tachycardia Pacemaker Pacemaker Pancreatitis Pure hypercholesterolemia Right bundle branch block (RBBB) Seizures Sick sinus syndrome Smoker Substance abuse SVT (supraventricular tachycardia) Thoracic aortic aneurysm Tobacco use Home Medications omeprazole 40 mg capsule,delayed release 40 mg PO DAILY ACID REFLUX 06/10/18 [History Last Taken 04/19/23] amlodipine 5 mg tablet 5 mg PO DAILY BLOOD PRESSURE 10/17/20 [History Last Taken 04/19/23] atorvastatin 10 mg tablet 10 mg PO DAILY CHOLESTEROL 10/17/20 [History Last Taken 04/19/23] hydralazine 25 mg tablet 25 mg PO TID BP 10/17/20 [History Last Taken 04/19/23] hydrochlorothiazide 12.5 mg tablet 12.5 mg PO DAILY BLOOD PRESSURE 10/17/20 [History Last Taken 11/11/21] ramipril 10 mg capsule 10 mg PO BID BLOOD PRESSURE 10/17/20 [History Last Taken 11/11/21] dapagliflozin propanediol 10 mg tablet (Farxiga) 10 mg PO DAILY DIABETES 09/30/21 [History Last Taken 04/19/23] multivitamin 1 tab PO DAILY SUPPLEMENT 11/11/21 [History Last Taken 11/10/21] potassium chloride 10 mEq tablet,extended release(part/cryst) 20 meq PO DAILY SUPPLEMENT 11/11/21 [History Last Taken Unknown] metoprolol succinate 50 mg tablet,extended release 24 hr 50 mg PO BID BLOOD PRESSURE #60 tabs 10/15/22 [Rx Last Taken 04/19/23] gabapentin 300 mg capsule 300 mg PO DAILY NEUROPATHY 11/14/22 [History Last Taken Unknown] insulin glargine 100 unit/mL (3 mL) subcutaneous pen (Lantus Solostar U-100 Insulin) 10 unit subcut 1200 DIABETES 11/14/22 [History Last Taken 04/19/23] metformin 500 mg tablet,extended release 24 hr 500 mg PO BID DIABETES 11/15/22 [History Last Taken 04/19/23] famotidine 40 mg tablet 40 mg PO DAILY ACID REFLUX 04/20/23 [History Last Taken 04/19/23] Allergy/AdvReac Type Severity Reaction Status Date / Time No Known Allergies Allergy Verified 05/09/23 13:37 Family History Father CAD (coronary artery disease) Mother Dementia Surgical History H/O aortic valve replacement H/O cardiac catheterization History of aortic aneurysm repair (~2017) History of aortic valve replacement with bioprosthetic valve (~2017) History of cataract surgery History of hernia repair Social History (Updated 05/09/23 @ 13:38 by Ann-Marie Nova) household members: family housing: house Smoking Status: Current every day smoker tobacco type: cigarettes alcohol intake: current alcohol intake frequency: 0-2 drinks per day details: Reports currently ~ 2 tall boys daily. substance use type: former substance user caffeine: Yes Type: coffee Number of servings: 3 ROS ROS Narrative 10 systems were reviewed with pertinent positives as noted in the HPI above. Physical Exam Const alert and no apparent distress Constitutional Narrative: Appears to be resting comfortably in bed. General Appearance: cooperative HEENT normocephalic and head/scalp atraumatic Eyes PERRL, EOMs intact bilaterally and conjunctivae normal Neck supple General: trachea midline Chest inspection of chest normal Resp normal respiratory effort Auscultation: diminished lung sounds; Negative for rales, rhonchi or wheezes Cardio regular rate and regular rhythm Heart Sounds: murmur GI soft to palpation Palpation: tender Extremity no clubbing, cyanosis or edema Skin no rashes or lesions noted Neuro CN's II-XII intact bilaterally, moves all extremities and no focal motor deficits Psych cooperative and affect normal Lab / Micro Data 05/11/23 05:35 05/11/23 05:35 Labs: Laboratory Results - last 24 hr 05/09/23 13:59: WBC 13.0 H, RBC 3.25 L, Hgb 11.2 L, Hct 33.8 L, MCV 104.0 H, MCH34.5 H, MCHC 33.1, RDW Std Deviation 59.7 H, RDW Coeff of [place] 15.7 H, Plt Count 133 L, MPV 12.3 H, Immature Gran % (Auto) 0.800, Neut % (Auto) 92.8 H, Lymph % (Auto) 2.7 L, [place] % (Auto) 3.2, Eos % (Auto) 0.0, Baso % (Auto) 0.5, Absolute Neuts (auto) 12.0 H, Absolute Lymphs (auto) 0.35 L, Nucleated RBC % 0, Platelet Estimate ADEQUATE, Macrocytosis 1+, Sodium 137, Potassium 4.0, Chloride 92 L, Carbon Dioxide 36.0 H, Anion Gap 9, BUN 9, Creatinine 1.50 H, Estim Creat Clear Calc 55.78, Est GFR (MDRD) Af Amer 61, Est GFR (MDRD) Non-Af 51 L, BUN/Creatinine Ratio 6.0 L, Glucose 209 H, Calcium 8.0 L, Total Bilirubin 1.00, Direct Bilirubin 0.48 H, AST 220 H, ALT 56, Alkaline Phosphatase 212 H, Total Protein 5.4 L, Albumin 1.5 L, Globulin 3.9, Prealbumin 8.0 L, Lipase < 10 L 05/09/23 14:15: PT 22.6 H, INR 2.0 05/09/23 16:59: Urine Color Yellow, Urine Clarity Sl. Cloudy, Urine pH 8.0, Ur Specific [place] 1.015, Urine Protein 100 H, Urine Glucose (UA) Normal, Urine Ketones Negative, Urine Occult Blood 250 H, Urine Nitrite Negative, Urine Bilirubin Negative, Urine Urobilinogen Normal, Ur Leukocyte Esterase 500 H, Urine RBC 0-5 SEEN, Urine WBC 50-100 SEEN, Ur Squamous Epith Cells 0 SEEN, UrineBacteria 1+, Urine Mucus 0 SEEN, Urine Opiates Screen POSITIVE H, Urine Methadone Screen NEGATIVE, Ur Barbiturates Screen POSITIVE H, Ur Phencyclidine Scrn NEGATIVE, Ur Amphetamines Screen NEGATIVE, MDMA (Ecstasy) Screen NEGATIVE, U Benzodiazepines Scrn NEGATIVE, Urine Cocaine Screen NEGATIVE, U Cannabinoids Screen NEGATIVE, Ur Drug Screen Comment 05/10/23 07:05: WBC 13.7 H, RBC 2.47 L, Hgb 8.5 L, Hct 26.2 L, MCV 106.1 H, MCH 34.4 H, MCHC 32.4, RDW Std Deviation 63.3 H, RDW Coeff of [place] 16.2 H, Plt Count 55 L, MPV 13.1 H, Immature Gran % (Auto) 0.700, Neut % (Auto) 94.5 H, Lymph % (Auto) 2.3 L, [place] % (Auto) 2.0, Eos % (Auto) 0.0, Baso % (Auto) 0.5, Absolute Neuts (auto) 12.9 H, Absolute Lymphs (auto) 0.32 L, Nucleated RBC % 0, Platelet Estimate MOD DEC, Sodium 134 L, Potassium 4.1, Chloride 94 L, Carbon Dioxide 33.0 H, Anion Gap 7, BUN 14, Creatinine 1.92 H, Estim Creat Clear Calc 43.58, Est GFR (MDRD) Af Amer 46 L, Est GFR (MDRD) Non-Af 38 L, BUN/Creatinine Ratio 7.3 L, Glucose 181 H, Calcium 7.5 L, Phosphorus 4.7, Magnesium 2.7 H, Total Bilirubin 0.60, AST 86 H, ALT 34, Alkaline Phosphatase 154 H, Total Protein 4.5 L, Albumin 1.7 L, Globulin 2.8, Albumin/Globulin Ratio 0.6 L, TSH 0.89 05/10/23 10:35: Lactic Acid 4.4 H* Imaging Radiology Impression Chest X-Ray 05/09/23 14:36 IMPRESSION: Right lower lung infiltrate/atelectasis and trace right pleural effusion. Mild atelectatic changes in the left lung base. Electronically Signed: Jayesh Ludwig MD at 14:50 EDT , Abdomen/Pelvis CT 05/09/23 15:32 IMPRESSION: Fatty hepatic changes with small hypoattenuated nodule. Moderate ascites. Mild wall thickening of the urinary bladder. Possible mild small bowel ileus. Electronically Signed: Cade Jaramillo DO at 16:54 EDT , Sepsis Attestation Sepsis Alert: Yes Sepsis Attestation: Agree w/Sepsis Date exam was performed: 05/10/23 Time exam was performed: 12:01 Possible Source of Sepsis: Pulmonary and Genitourinary Sepsis Organ Dysfunction Criteria Present: SBP < 90 mmHg or MAP < 65 mmHg and Lactic Acid > 2 mmol/L Fluid Resuscitation Fluid resuscitation indicated?: Yes Fluid Resuscitation ordered: 30 ml/kg fluid bolus ordered Charges/Coding Visit Charges Inpatient E&M: 61569 Init Hosp L3 05/11/23 0720 <Electronically signed by Barry Sheehan DO> Cosigner Signature (if applicable): CC: ALAN Pathak; Dr. Alcides Tucker MD; Dr. Trenton Strong MD; Dr. Aramis Palacios MD; Dr. Conrado Pro DO; Dr. Barry Sheehan DO; Dr. Aldo Castellano MD; Dr. Mt Kearns MD; Dr. Mundo Marcelino MD; Dr. Meli Miles MD; Dr. Tiara Horowitz MD; Dr. Jose Pacheco MD; Dr. Yunier Allred MD; Dr. Marquez Elmore MD; Dr. Bronson Peterson MD; Dr. Toni Dodge MD; Dr. Chen Merrill MD~ Signed [facility] Work Phone: [phone] History and physical note Author Conrado [facility] [place] May 10, 2023 3:29am Note Date/Time May 09, 2023 8:3 7pm [facility] Medical Records Department [address] [place] [id number] H&P Exam - Hospitalist 05/09/232033 MR#: [id number] Acct: [id number] Name: ANALILIA MELENDREZ Rep #:[id number] : 1960 62 From: Conrado Gonzalez DO PCP: ALAN Chahal tus:ADM IN Location: [facility] [id number] HPI - General General Date of Admission: 05/09/23 Date of Service: 05/09/23 Chief Complaint: Continued EtOH and Stopped Medications. HPI Narrative ANALILIA MELENDREZ, is a 62 M with a past medical history of essential hypertension, hyperlipidemia, diabetes mellitus type 2; of unknown control, diabetic neuropathy, history of tobacco abuse, documented history of heroin abuse (allegedly quit 10 years ago), history of coronary artery disease; status post [place], history of mechanical aortic valve replacement (2015); converted to a bioprosthetic valve (2017), is rhythm he is sick sinus syndrome; s/p pacemaker (2017), history of ascending aortic aneurysm dissection (~2005), history of SVT,chronic macrocytic anemia, chronic microcytic anemia, GERD; with history of hiatal hernia, chronic severe protein-calorie malnutrition and chronic alcoholicpancreatitis; attributed to chronic severe and ongoing alcohol abuse with recentadmission here from April 21, 2023 to April 27, 2023 for help with alcohol detoxification with patient offered to go to a fpc facility upon discharge which he refused to so he could be discharged to his father's home whonow re-presents to [facility] ER complaining of abdominal pain. Unfortunately, Mr. Melendrez has continued to drink at least 2 tall boy sized servings of [employer] Hard Lemonade daily over the past 2 weeks without corresponding worsening of his chronic abdominal pain. He also reports not being able to take his normal medications over that timeframe as well. He denies associated fever, chills, nausea or vomiting and he describes his abdominal pain is generalized and cramping made worse with palpation over his epigastrium. In the ER he was noted to have a urinalysis positive for acute cystitis; without hematuria with bibasilar atelectasis gated by CT evidence of right pleural effusion with bibasilar atelectasis with fatty liver, moderate ascites and possible mild small bowel ileus with mild wall thickening of the urinary bladder in the setting of impending alcohol withdrawal due to chronic recalcitrant alcohol abuse and worsening abdominal pain due to chronic alcoholicpancreatitis and he was then admitted to the general medical floor for ongoing care for a stated expected to be greater than 48 hours. [facility] Medical History AAA (abdominal aortic aneurysm) Abdominal ascites Admitted to alcohol detoxification center Adrenal nodule Alcohol abuse Alcohol dependence Alcohol dependence Alcoholic hepatitis Alcoholism Anxiety Ascending aortic dissection (~2005) Cardiac pacemaker in situ (~06/2016) Chronic pancreatitis Diabetes Diabetes mellitus, type II Essential hypertension Gastric wall thickening Hiatal hernia History of diabetes mellitus HTN (hypertension) Hx of hypercholesterolemia Left carotid bruit Myocardial infarct Non-sustained ventricular tachycardia Pacemaker Pacemaker Pancreatitis Pure hypercholesterolemia Right bundle branch block (RBBB) Seizures Sick sinus syndrome Smoker Substance abuse SVT (supraventricular tachycardia) Thoracic aortic aneurysm Tobacco use Home Medications omeprazole 40 mg capsule,delayed release 40 mg PO DAILY ACID REFLUX 06/10/18 [History Last Taken 04/19/23] amlodipine 5 mg tablet 5 mg PO DAILY BLOOD PRESSURE 10/17/20 [History Last Taken 04/19/23] atorvastatin 10 mg tablet 10 mg PO DAILY CHOLESTEROL 10/17/20 [History Last Taken 04/19/23] hydralazine 25 mg tablet 25 mg PO TID BP 10/17/20 [History Last Taken 04/19/23] hydrochlorothiazide 12.5 mg tablet 12.5 mg PO DAILY BLOOD PRESSURE 10/17/20 [History Last Taken 11/11/21] ramipril 10 mg capsule 10 mg PO BID BLOOD PRESSURE 10/17/20 [History Last Taken 11/11/21] dapagliflozin propanediol 10 mg tablet (Farxiga) 10 mg PO DAILY DIABETES 09/30/21 [History Last Taken 04/19/23] multivitamin 1 tab PO DAILY SUPPLEMENT 11/11/21 [History Last Taken 11/10/21] potassium chloride 10 mEq tablet,extended release(part/cryst) 20 meq PO DAILY SUPPLEMENT 11/11/21 [History Last Taken Unknown] metoprolol succinate 50 mg tablet,extended release 24 hr 50 mg PO BID BLOOD PRESSURE #60 tabs 10/15/22 [Rx Last Taken 04/19/23] gabapentin 300 mg capsule 300 mg PO DAILY NEUROPATHY 11/14/22 [History Last Taken Unknown] insulin glargine 100 unit/mL (3 mL) subcutaneous pen (Lantus Solostar U-100 Insulin) 10 unit subcut 1200 DIABETES 11/14/22 [History Last Taken 04/19/23] metformin 500 mg tablet,extended release 24 hr 500 mg PO BID DIABETES 11/15/22 [History Last Taken 04/19/23] famotidine 40 mg tablet 40 mg PO DAILY ACID REFLUX 04/20/23 [History Last Taken 04/19/23] Allergy/AdvReac Type Severity Reaction Status Date / Time No Known Allergies Allergy Verified 05/09/23 13:37 Family History Father CAD (coronary artery disease) Mother Dementia Surgical History H/O aortic valve replacement H/O cardiac catheterization History of aortic aneurysm repair (~2017) History of aortic valve replacement with bioprosthetic valve (~2017) History of cataract surgery History of hernia repair Social History (Updated 05/09/23 @ 13:38 by Ann-Marie Nova) household members: family housing: house Smoking Status: Current every day smoker tobacco type: cigarettes alcohol intake: current alcohol intake frequency: 0-2 drinks per day details: Reports currently ~ 2 tall boys daily. substance use type: former substance user caffeine: Yes Type: coffee Number of servings: 3 Vital Signs Vital Signs Vital Signs: 05/09/23 13:31 05/09/23 13:39 05/09/23 15:04 Temperature 98.7 F Temperature Source Oral Pulse Rate 141 H 139 H Respiratory Rate 14 14 Blood Pressure 114/82 H Blood Pressure Mean 92 Pulse Ox 91 91 86 Oxygen Delivery Method Room Air Room Air Room Air Oxygen Flow Rate (L/min) 05/09/23 15:05 05/09/23 13:38 05/09/23 13:45 Temperature Temperature Source Pulse Rate 143 H 140 H Respiratory Rate 14 14 Blood Pressure 111/82 H Blood Pressure Mean 93 Pulse Ox 98 94 Oxygen Delivery Method Nasal Cannula Oxygen Flow Rate (L/min) 3 05/09/23 14:00 05/09/23 14:15 05/09/23 14:30 Temperature Temperature Source Pulse Rate 142 H Respiratory Rate 28 H Blood Pressure 96/72 97/70 Blood Pressure Mean 81 78 Pulse Ox Oxygen Delivery Method Oxygen Flow Rate (L/min) 05/09/23 14:30 05/09/23 14:45 05/09/23 14:46 Temperature Temperature Source Pulse Rate Respiratory Rate Blood Pressure 97/70 94/76 Blood Pressure Mean 78 81 Pulse Ox 78 93 Oxygen Delivery Method Oxygen Flow Rate (L/min) 05/09/23 15:00 05/09/23 15:15 05/09/23 15:30 Temperature Temperature Source Pulse Rate 124 H 119 H Respiratory Rate 16 18 Blood Pressure 104/79 105/72 87/65 L Blood Pressure Mean 89 83 72 Pulse Ox 100 98 Oxygen Delivery Method Oxygen Flow Rate (L/min) 05/09/23 15:45 05/09/23 15:50 05/09/23 16:00 Temperature Temperature Source Pulse Rate 114 H 120 H Respiratory Rate 15 15 Blood Pressure 94/67 98/72 95/71 Blood Pressure Mean 77 81 80 Pulse Ox 100 99 Oxygen Delivery Method Oxygen Flow Rate (L/min) 05/09/23 16:13 05/09/23 16:15 05/09/23 16:30 Temperature Temperature Source Pulse Rate 118 H 115 H 115 H Respiratory Rate 14 16 15 Blood Pressure 106/71 104/72 Blood Pressure Mean 83 81 Pulse Ox 96 92 Oxygen Delivery Method Oxygen Flow Rate (L/min) 05/09/23 16:45 05/09/23 17:00 05/09/23 17:15 Temperature Temperature Source Pulse Rate 115 H 114 H 133 H Respiratory Rate 17 14 16 Blood Pressure 105/77 116/81 H 184/119 H Blood Pressure Mean 86 93 137 Pulse Ox 93 94 Oxygen Delivery Method Oxygen Flow Rate (L/min) 05/09/23 17:30 05/09/23 17:45 05/09/23 18:00 Temperature Temperature Source Pulse Rate 132 H 134 H 143 H Respiratory Rate 14 17 20 H Blood Pressure 162/109 H 180/140 H 160/124 H Blood Pressure Mean 126 152 136 Pulse Ox 95 95 Oxygen Delivery Method Oxygen Flow Rate (L/min) 05/09/23 18:15 05/09/23 18:30 05/09/23 18:45 Temperature Temperature Source Pulse Rate 149 H 144 H 137 H Respiratory Rate 16 21 H 21 H Blood Pressure 157/114 H 139/120 H 133/107 H Blood Pressure Mean 124 127 116 Pulse Ox Oxygen Delivery Method Oxygen Flow Rate (L/min) 05/09/23 19:00 05/09/23 19:15 05/09/23 19:16 Temperature Temperature Source Pulse Rate 130 H 127 H 127 H Respiratory Rate 23 H 21 H 20 H Blood Pressure 93/64 113/78 Blood Pressure Mean 71 89 Pulse Ox Oxygen Delivery Method Oxygen Flow Rate (L/min) 05/09/23 20:00 05/09/23 20:06 Temperature Temperature Source Pulse Rate 135 H Respiratory Rate 24 H Blood Pressure 83/61 L Blood Pressure Mean 68 Pulse Ox 83 94 Oxygen Delivery Method Room Air Nasal Cannula Oxygen Flow Rate (L/min) 2 Weight Weight: 170 lb 10.205 oz Body Mass Index (BMI) 23.8 Results Lab / Micro Data 05/09/23 13:59 03/31/24 13:59 Labs: Laboratory Results - last 24 hr 05/09/23 13:59: WBC 13.0 H, RBC 3.25 L, Hgb 11.2 L, Hct 33.8 L, MCV 104.0 H, MCH34.5 H, MCHC 33.1, RDW Std Deviation 59.7 H, RDW Coeff of Kalp[place] 15.7 H, Plt Count 133 L, MPV 12.3 H, Immature Gran % (Auto) 0.800, Neut % (Auto) 92.8 H, Lymph % (Auto) 2.7 L, [place] % (Auto) 3.2, Eos % (Auto) 0.0, Baso % (Auto) 0.5, Absolute Neuts (auto) 12.0 H, Absolute Lymphs (auto) 0.35 L, Nucleated RBC % 0, Platelet Estimate ADEQUATE, Macrocytosis 1+, Sodium 137, Potassium 4.0, Chloride 92 L, Carbon Dioxide 36.0 H, Anion Gap 9, BUN 9, Creatinine 1.50 H, Estim Creat Clear Calc 55.78, Est GFR (MDRD) Af Amer 61, Est GFR (MDRD) Non-Af 51 L, BUN/Creatinine Ratio 6.0 L, Glucose 209 H, Calcium 8.0 L, Total Bilirubin 1.00, Direct Bilirubin 0.48 H, AST 220 H, ALT 56, Alkaline Phosphatase 212 H, Total Protein 5.4 L, Albumin 1.5 L, Globulin 3.9, Lipase < 10 L 05/09/23 14:15: PT 22.6 H, INR 2.0 05/09/23 16:59: Urine Color Yellow, Urine Clarity Sl. Cloudy, Urine pH 8.0, Ur Specific [place] 1.015, Urine Protein 100 H, Urine Glucose (UA) Normal, Urine Ketones Negative, Urine Occult Blood 250 H, Urine Nitrite Negative, Urine Bilirubin Negative, Urine Urobilinogen Normal, Ur Leukocyte Esterase 500 H, Urine RBC 0-5 SEEN, Urine WBC 50-100 SEEN, Ur Squamous Epith Cells 0 SEEN, UrineBacteria 1+, Urine Mucus 0 SEEN Imaging Radiology Impression Chest X-Ray 05/09/23 14:36 IMPRESSION: Right lower lung infiltrate/atelectasis and trace right pleural effusion. Mild atelectatic changes in the left lung base. Electronically Signed: Jayesh Ludwig MD at 14:50 EDT , Abdomen/Pelvis CT 05/09/23 15:32 IMPRESSION: Fatty hepatic changes with small hypoattenuated nodule. Moderate ascites. Mild wall thickening of the urinary bladder. Possible mild small bowel ileus. Electronically Signed: Cade Jaramillo DO at 16:54 EDT , Assessment & Plan Assessment/Plan (1) Acute cystitis without hematuria: (2) Alcohol withdrawal: QUALIFIERS: Complication of substance-induced condition: uncomplicated Qualified Code(s): F10.930 - Alcohol use, unspecified with withdrawal, uncomplicated (3) Chronic alcohol abuse: (4) Chronic pancreatitis due to chronic alcoholism: (5) Protein-calorie malnutrition, severe: (6) Medically noncompliant: PLAN: Plan 1. Acute cystitis; without hematuria - Admit to general medical floor with telemetry monitoring under aspiration and seizure precautions. Continue IV Rocephin and await culture and sensitivity data. Avoid Tylenol and other potentially hepatotoxic agents and his chronic recalcitrant alcoholic. 2. Chronic recalcitrant alcohol abuse with impending alcohol withdrawal and abdominal pain exacerbated by continued alcohol abuse in the setting of chronic alcoholic pancreatitis after recent admission here from April 21, 2023 to April 27, 2023 with patient refusing to go to an ECF in favor of going home with his father complicating #1 - Keep n.p.o. for now and start Protonix 40 mg IV twice daily. Give Zofran IV as needed nausea and vomiting. Alcohol cessation was once again strongly encouraged. Orders will be written for alcohol withdrawal protocol focusing mainly on phenobarbital taper. 3. [id number]-lwzovcn severe protein calorie malnutrition with hypoalbuminemia of1.5 g/dL present on admission compounding #1 & #2 - Check prealbumin to confirm suspicion. We will consult clinical dietitian sees patient on rounds in the a.m. for further recommendations without appreciated in advance. 4. Alcohol induced coagulopathy with INR of 2 present on admission suspected jorge due to chronic liver disease with poor synthetic function of clotting factors adding to the pathology of #1 - #3 - Give multivitamin daily. Check PT/INR daily to follow trend. Avoid any other blood thinners with patient over auto-anticoagulated due to alcohol-induced chronic liver disease with ascites noted on admission CT. 5. Medical noncompliance with patient failing to take any of his medications since his previous admission approximately 12 days ago exacerbating #1 to #4 - Patient was encouraged to take his medications as prescribed to avoid continuingthis repeating pattern of serial readmission. 6. Essential hypertension - Hold scheduled antihypertensives until patient is medically stabilized and then restart home regimen gradually as tolerated. 7. Hyperlipidemia - Resume statin when patient resumes oral intake. 8. Diabetes mellitus type 2; of unknown control with diabetic neuropathy - NPO for now. FSBS q. 6 hours. Check hemoglobin A1c to objectively evaluate qualityof diabetic control. 9. History of tobacco abuse - Tobacco cessation will be strongly encouraged with nicotine patch offered to control cravings. 10. Documented history of heroin abuse (allegedly quit 10 years ago) - Check [place] urine drug screen this admission. 11. History of coronary artery disease; status post [place] - Stable. Continue homeregimen as previous. 12. History of mechanical aortic valve replacement (2014); converted to a bioprosthetic valve (2017) - Noted. 13. History of Sick Sinus Syndrome; s/p pacemaker (2017) - Noted. 14. History of ascending aortic aneurysm dissection (~2005) - Noted. 15. History of SVT - Stable with no evidence of recurrence. 16. Chronic macrocytic anemia - Stable. 17. GERD; with history of hiatal hernia - Stable with patient initiated on Protonix 40 mg IV BID on admission. 18. DVT prophylaxis - SCD's only in light of #4. Total time: Approximately 75 minutes. Charges/Coding Visit Charges Inpatient E&M: 11684 Init Hosp L3 05/10/23 0324 <Electronically signed by Conrado Pro DO> Cosigner Signature (if applicable): CC: ALAN Pathak; Dr. Conrado Pro DO~ Signed [facility] Work Phone: [phone]) 142-928404-01-2024 Discharge summary Author Carlos Charli [facility] May 09, 2023 10:05pm Note Date/Time May 09, 2023 1:5 6pm [facility] Medical Records Department [address] [place] [address] Emergency Department Summary 05/09/23 MR#: [id number] Acct: [id number] Name: ANALILIA MELENDREZ Rep #:[id number] : 1960 62 From: Carlos Augustin MD PCP: ALAN Chahal tus:ADM IN Location: [facility] [id number] HPI <ALAN Dick - Last Filed: 05/09/23 20:40> History of Present Illness Chief Complaint: Abd Pain Narrative Narrative: Patient is a 62-year-old male with diabetes, aortic valve replacement, hypertension, chronic alcohol abuse with chronic pancreatitis who presents to the emergency department for acute on chronic abdominal pain. Patient was recently admitted here on April 21, 2023, patient was admitted and discharged onthe . Patient did go through a detox. Patient on discharge was offered to go to a fpc facility secondary to the weakness as well as his drinking problem. Patient refused, patient was then discharged to his father's house. Patient states since he has been home for the last 2 weeks, he has not taken any of his normal medication. He has not taken any of his heart medicine,any of his diabetic medicine, he is continuing to drink tall boys. At this time, patient is here for evaluation for acute on chronic abdominal pain. PFSH <ALAN Dick - Last Filed: 05/09/23 20:40> [facility] Medical History AAA (abdominal aortic aneurysm) Admitted to alcohol detoxification center Adrenal nodule Alcohol dependence Alcoholism Anxiety Ascending aortic dissection (~2005) Cardiac pacemaker in situ (~06/2016) Diabetes Diabetes mellitus, type II Essential hypertension Hiatal hernia History of diabetes mellitus HTN (hypertension) Hx of hypercholesterolemia Left carotid bruit Myocardial infarct Non-sustained ventricular tachycardia Pacemaker Pacemaker Pancreatitis Pure hypercholesterolemia Right bundle branch block (RBBB) Sick sinus syndrome Smoker Substance abuse SVT (supraventricular tachycardia) Thoracic aortic aneurysm Tobacco use Home Medications omeprazole 40 mg capsule,delayed release 40 mg PO DAILY ACID REFLUX 06/10/18 [History Last Taken 04/19/23] amlodipine 5 mg tablet 5 mg PO DAILY BLOOD PRESSURE 10/17/20 [History Last Taken 04/19/23] atorvastatin 10 mg tablet 10 mg PO DAILY CHOLESTEROL 10/17/20 [History Last Taken 04/19/23] hydralazine 25 mg tablet 25 mg PO TID BP 10/17/20 [History Last Taken 04/19/23] hydrochlorothiazide 12.5 mg tablet 12.5 mg PO DAILY BLOOD PRESSURE 10/17/20 [History Last Taken 11/11/21] ramipril 10 mg capsule 10 mg PO BID BLOOD PRESSURE 10/17/20 [History Last Taken 11/11/21] dapagliflozin propanediol 10 mg tablet ([facility]) 10 mg PO DAILY DIABETES 09/30/21 [History Last Taken 04/19/23] multivitamin 1 tab PO DAILY SUPPLEMENT 11/11/21 [History Last Taken 11/10/21] potassium chloride 10 mEq tablet,extended release(part/cryst) 20 meq PO DAILY SUPPLEMENT 11/11/21 [History Last Taken Unknown] metoprolol succinate 50 mg tablet,extended release 24 hr 50 mg PO BID BLOOD PRESSURE #60 tabs 10/15/22 [Rx Last Taken 04/19/23] gabapentin 300 mg capsule 300 mg PO DAILY NEUROPATHY 11/14/22 [History Last Taken Unknown] insulin glargine 100 unit/mL (3 mL) subcutaneous pen (Lantus Solostar U-100 Insulin) 10 unit subcut 1200 DIABETES 11/14/22 [History Last Taken 04/19/23] metformin 500 mg tablet,extended release 24 hr 500 mg PO BID DIABETES 11/15/22 [History Last Taken 04/19/23] famotidine 40 mg tablet 40 mg PO DAILY ACID REFLUX 04/20/23 [History Last Taken 04/19/23] Allergy/AdvReac Type Severity Reaction Status Date / Time No Known Allergies Allergy Verified 05/09/23 13:37 Family History Father CAD (coronary artery disease) Mother Dementia Surgical History H/O aortic valve replacement H/O cardiac catheterization History of aortic aneurysm repair (~2016) History of aortic valve replacement with bioprosthetic valve (~2017) History of cataract surgery History of hernia repair Social History (Updated 05/09/23 @ 13:38 by Ann-Marie Nova) household members: family housing: house Smoking Status: Current every day smoker tobacco type: cigarettes alcohol intake: current alcohol intake frequency: 0-2 drinks per day details: Reports currently ~ 2 tall boys daily. substance use type: former substance user caffeine: Yes Type: coffee Number of servings: 3 ROS <ALAN Dick - Last Filed: 05/09/23 20:40> ROS ED ROS Narrative Constitutional: Negative for fever, chills, weight loss, weakness Eyes: Negative for vision loss, vision change, double vision ENT: Negative for any sore throat, ear pain, congestion Cardiovascular: Negative for any chest pain, tightness, palpitations Respiratory: Negative for any cough, sputum production, hemoptysis, dyspnea, dyspnea on exertion, orthopnea Gastrointestinal: Negative for any vomiting, diarrhea, constipation, blood in stool, blood in vomit. Positive for abdominal pain, nausea : Negative for any urinary frequency, dysuria, retention, blood in urine Muscle skeletal: Negative for any neck pain, back pain Neurological: Negative for any headache, syncope, dizziness Skin: Negative for any rashes, itching, abrasions, lacerations Psychiatric: Negative for any depression, anxiety, stress, suicidal ideation, homicidal ideation Hematologic: Negative for any excessive bruising, easy bleeding EXAM <ALAN Dick - Last Filed: 05/09/23 20:40> Physical Exam Narrative Exam Narrative: Vital signs reviewed. Patient is tachycardic. HEET: Head normocephalic atraumatic, TMs clear bilaterally. Posterior pharynx is clear, dry mucous membranes. Nares clear bilaterally. Neck: Supple with no lymphadenopathy or tenderness. No signs of meningismus. Cardiac: Tachycardic rate, clicks secondary to aortic valve repair no murmurs gallops or rubs, equal peripheral pulses bilaterally. Respiratory: Lungs clear to auscultation bilaterally. No chest tenderness. Abdomen: Soft, nondistended. No abdominal bruit or pulsatile masses. Tenderness throughout the entire upper abdomen Extremities: Patient has left upper and bilateral lower edema, +2. No signs of gross trauma or deformity. Active full range of motion of all extremities. Neuro: Cranial nerves II through XII intact, no focal neurological deficits. Skin: Clean dry and intact with no rash, purpura, petechiae, vesicles or pustules. Backs/flank: No CVA tenderness, no midline spinal tenderness, no deformity. Psych: Normal mood and affect. No SI, HI or acute psychosis. Const Vital Signs: 05/09/23 13:31 05/09/23 13:39 05/09/23 15:04 Temperature 98.7 F Temperature Source Oral Pulse Rate 141 H 139 H Respiratory Rate 14 14 Blood Pressure 114/82 H Blood Pressure Mean 92 Pulse Ox 91 91 86 Oxygen Delivery Method Room Air Room Air Room Air Oxygen Flow Rate (L/min) 05/09/23 15:05 05/09/23 13:38 05/09/23 13:45 Temperature Temperature Source Pulse Rate 143 H 140 H Respiratory Rate 14 14 Blood Pressure 111/82 H Blood Pressure Mean 93 Pulse Ox 98 94 Oxygen Delivery Method Nasal Cannula Oxygen Flow Rate (L/min) 3 05/09/23 14:00 05/09/23 14:15 05/09/23 14:30 Temperature Temperature Source Pulse Rate 142 H Respiratory Rate 28 H Blood Pressure 96/72 97/70 Blood Pressure Mean 81 78 Pulse Ox Oxygen Delivery Method Oxygen Flow Rate (L/min) 05/09/23 14:30 05/09/23 14:45 05/09/23 14:46 Temperature Temperature Source Pulse Rate Respiratory Rate Blood Pressure 97/70 94/76 Blood Pressure Mean 78 81 Pulse Ox 78 93 Oxygen Delivery Method Oxygen Flow Rate (L/min) 05/09/23 15:00 05/09/23 15:15 05/09/23 15:30 Temperature Temperature Source Pulse Rate 124 H 119 H Respiratory Rate 16 18 Blood Pressure 104/79 105/72 87/65 L Blood Pressure Mean 89 83 72 Pulse Ox 100 98 Oxygen Delivery Method Oxygen Flow Rate (L/min) 05/09/23 15:45 05/09/23 15:50 05/09/23 16:00 Temperature Temperature Source Pulse Rate 114 H 120 H Respiratory Rate 15 15 Blood Pressure 94/67 98/72 95/71 Blood Pressure Mean 77 81 80 Pulse Ox 100 99 Oxygen Delivery Method Oxygen Flow Rate (L/min) 05/09/23 16:13 05/09/23 16:15 05/09/23 16:30 Temperature Temperature Source Pulse Rate 118 H 115 H 115 H Respiratory Rate 14 16 15 Blood Pressure 106/71 104/72 Blood Pressure Mean 83 81 Pulse Ox 96 92 Oxygen Delivery Method Oxygen Flow Rate (L/min) 05/09/23 16:45 05/09/23 17:00 05/09/23 17:15 Temperature Temperature Source Pulse Rate 115 H 114 H 133 H Respiratory Rate 17 14 16 Blood Pressure 105/77 116/81 H 184/119 H Blood Pressure Mean 86 93 137 Pulse Ox 93 94 Oxygen Delivery Method Oxygen Flow Rate (L/min) 05/09/23 17:30 05/09/23 17:45 05/09/23 18:00 Temperature Temperature Source Pulse Rate 132 H 134 H 143 H Respiratory Rate 14 17 20 H Blood Pressure 162/109 H 180/140 H 160/124 H Blood Pressure Mean 126 152 136 Pulse Ox 95 95 Oxygen Delivery Method Oxygen Flow Rate (L/min) 05/09/23 18:15 05/09/23 18:30 05/09/23 18:45 Temperature Temperature Source Pulse Rate 149 H 144 H 137 H Respiratory Rate 16 21 H 21 H Blood Pressure 157/114 H 139/120 H 133/107 H Blood Pressure Mean 124 127 116 Pulse Ox Oxygen Delivery Method Oxygen Flow Rate (L/min) 05/09/23 19:00 05/09/23 19:15 05/09/23 19:16 Temperature Temperature Source Pulse Rate 130 H 127 H 127 H Respiratory Rate 23 H 21 H 20 H Blood Pressure 93/64 113/78 Blood Pressure Mean 71 89 Pulse Ox Oxygen Delivery Method Oxygen Flow Rate (L/min) 05/09/23 20:00 05/09/23 20:06 Temperature Temperature Source Pulse Rate 135 H Respiratory Rate 24 H Blood Pressure 83/61 L Blood Pressure Mean 68 Pulse Ox 83 94 Oxygen Delivery Method Room Air Nasal Cannula Oxygen Flow Rate (L/min) 2 Positive cachectic and unkempt General Appearance ED: unkempt and cachectic Nutritional Appearance: cachectic Psych Appearance: unkempt <Dr. Carlos Augustin MD - Last Filed: 05/09/23 17:14> Physical Exam Const Vital Signs: 05/09/23 13:31 05/09/23 13:39 05/09/23 15:04 Temperature 98.7 F Temperature Source Oral Pulse Rate 141 H 139 H Respiratory Rate 14 14 Blood Pressure 114/82 H Blood Pressure Mean 92 Pulse Ox 91 91 86 Oxygen Delivery Method Room Air Room Air Room Air Oxygen Flow Rate (L/min) 05/09/23 15:05 05/09/23 13:38 05/09/23 13:45 Temperature Temperature Source Pulse Rate 143 H 140 H Respiratory Rate 14 14 Blood Pressure 111/82 H Blood Pressure Mean 93 Pulse Ox 98 94 Oxygen Delivery Method Nasal Cannula Oxygen Flow Rate (L/min) 3 05/09/23 14:00 05/09/23 14:15 05/09/23 14:30 Temperature Temperature Source Pulse Rate 142 H Respiratory Rate 28 H Blood Pressure 96/72 97/70 Blood Pressure Mean 81 78 Pulse Ox Oxygen Delivery Method Oxygen Flow Rate (L/min) 05/09/23 14:30 05/09/23 14:45 05/09/23 14:46 Temperature Temperature Source Pulse Rate Respiratory Rate Blood Pressure 97/70 94/76 Blood Pressure Mean 78 81 Pulse Ox 78 93 Oxygen Delivery Method Oxygen Flow Rate (L/min) 05/09/23 15:00 05/09/23 15:15 05/09/23 15:30 Temperature Temperature Source Pulse Rate 124 H 119 H Respiratory Rate 16 18 Blood Pressure 104/79 105/72 87/65 L Blood Pressure Mean 89 83 72 Pulse Ox 100 98 Oxygen Delivery Method Oxygen Flow Rate (L/min) 05/09/23 15:45 05/09/23 15:50 05/09/23 16:00 Temperature Temperature Source Pulse Rate 114 H 120 H Respiratory Rate 15 15 Blood Pressure 94/67 98/72 95/71 Blood Pressure Mean 77 81 80 Pulse Ox 100 99 Oxygen Delivery Method Oxygen Flow Rate (L/min) 05/09/23 16:13 05/09/23 16:15 05/09/23 16:30 Temperature Temperature Source Pulse Rate 118 H 115 H 115 H Respiratory Rate 14 16 15 Blood Pressure 106/71 104/72 Blood Pressure Mean 83 81 Pulse Ox 96 92 Oxygen Delivery Method Oxygen Flow Rate (L/min) 05/09/23 16:45 05/09/23 17:00 05/09/23 17:15 Temperature Temperature Source Pulse Rate 115 H 114 H 133 H Respiratory Rate 17 14 16 Blood Pressure 105/77 116/81 H 184/119 H Blood Pressure Mean 86 93 137 Pulse Ox 93 94 Oxygen Delivery Method Oxygen Flow Rate (L/min) 05/09/23 17:30 05/09/23 17:45 05/09/23 18:00 Temperature Temperature Source Pulse Rate 132 H 134 H 143 H Respiratory Rate 14 17 20 H Blood Pressure 162/109 H 180/140 H 160/124 H Blood Pressure Mean 126 152 136 Pulse Ox 95 95 Oxygen Delivery Method Oxygen Flow Rate (L/min) 05/09/23 18:15 05/09/23 18:30 05/09/23 18:45 Temperature Temperature Source Pulse Rate 149 H 144 H 137 H Respiratory Rate 16 21 H 21 H Blood Pressure 157/114 H 139/120 H 133/107 H Blood Pressure Mean 124 127 116 Pulse Ox Oxygen Delivery Method Oxygen Flow Rate (L/min) 05/09/23 19:00 05/09/23 19:15 05/09/23 19:16 Temperature Temperature Source Pulse Rate 130 H 127 H 127 H Respiratory Rate 23 H 21 H 20 H Blood Pressure 93/64 113/78 Blood Pressure Mean 71 89 Pulse Ox Oxygen Delivery Method Oxygen Flow Rate (L/min) 05/09/23 20:00 05/09/23 20:06 Temperature Temperature Source Pulse Rate 135 H Respiratory Rate 24 H Blood Pressure 83/61 L Blood Pressure Mean 68 Pulse Ox 83 94 Oxygen Delivery Method Room Air Nasal Cannula Oxygen Flow Rate (L/min) 2 MDM <ALAN Dick - Last Filed: 05/09/23 20:40> [facility] Lab Data Labs: Laboratory Results - last 24 hr 05/09/23 05/09/23 05/09/23 13:59 14:15 16:59 WBC 13.0 H RBC 3.25 L Hgb 11.2 L Hct 33.8 L MCV 104.0 H MCH 34.5 H MCHC 33.1 RDW Std Deviation 59.7 H RDW Coeff of Kalpana 15.7 H Plt Count 133 L MPV 12.3 H Immature Gran % (Auto) 0.800 Neut % (Auto) 92.8 H Lymph % (Auto) 2.7 L Er[place] % (Auto) 3.2 Eos % (Auto) 0.0 Baso % (Auto) 0.5 Absolute Neuts (auto) 12.0 H Absolute Lymphs (auto) 0.35 L Nucleated RBC % 0 Platelet Estimate ADEQUATE Macrocytosis 1+ PT 22.6 H INR 2.0 Sodium 137 Potassium 4.0 Chloride 92 L Carbon Dioxide 36.0 H Anion Gap 9 BUN 9 Creatinine 1.50 H Estim Creat Clear Calc 55.78 Est GFR (MDRD) Af Amer 61 Est GFR (MDRD) Non-Af 51 L BUN/Creatinine Ratio 6.0 L Glucose 209 H Calcium 8.0 L Total Bilirubin 1.00 Direct Bilirubin 0.48 H AST 220 H ALT 56 Alkaline Phosphatase 212 H Total Protein 5.4 L Albumin 1.5 L Globulin 3.9 Lipase < 10 L Urine Color Yellow Urine Clarity Sl. Cloudy Urine pH 8.0 Ur Specific [place] 1.015 Urine Protein 100 H Urine Glucose (UA) Normal Urine Ketones Negative Urine Occult Blood 250 H Urine Nitrite Negative Urine Bilirubin Negative Urine Urobilinogen Normal Ur Leukocyte Esterase 500 H Urine RBC 0-5 SEEN Urine WBC 50-100 SEEN Ur Squamous Epith Cells 0 SEEN Urine Bacteria 1+ Urine Mucus 0 SEEN Radiography Diagnostic Testing: Clinical Impression(s) from Imaging Studies Chest X-Ray 05/09/23 14:36 IMPRESSION: Right lower lung infiltrate/atelectasis and trace right pleural effusion. Mild atelectatic changes in the left lung base. Electronically Signed: Jayesh Ludwig MD at 14:50 EDT , Abdomen/Pelvis CT 05/09/23 15:32 IMPRESSION: Fatty hepatic changes with small hypoattenuated nodule. Moderate ascites. Mild wall thickening of the urinary bladder. Possible mild small bowel ileus. Electronically Signed: Cade Jaramillo DO at 16:54 EDT , EKG Sinus tachycardia: Attestation: I personally reviewed and interpreted this EKG as follows: Comments: Sinus tachycardia, rate of 40 bpm, AL interval 112 ms, QRS duration 100 ms, no acute ST elevation, no acute infarct noted Treatment and Re-Evaluation :: Differential diagnosis includes however is not limited to: Acute on chronic abdominal pain, chronic pancreatitis, bowel obstruction, acute cholecystitis, GERD, ascites, portal hypertension Patient appears to be in no obvious respiratory distress, however patient could be going through alcohol withdrawal, patient's heart rate is 140, patient is in mild amount of pain secondary to pain to his abdomen. Patient appears nontoxic,no fever or chills. Patient received a full abdominal workup including CBC, BMP, liver panel as well as lipase and PT/INR. EKG shows sinus tachycardia. Patient does have some intermittent shaking. Patient will receive IV fluids 500cc, morphine and Zofran. Patient will be reevaluated. Patient CBC shows a leukocytosis white blood count 13.0, on April 20, 2023 therewere 8, this is slightly elevated, patient has chronic anemia. PT/INR was elevated with a PT of 22.6, INR of 2.0, this is likely related to liver injury. Chemistries showed a creatinine of 1.5, patient's AST is 220 which is baseline, ALT is normal, alkaline phosphatase is elevated 212, lipase is less than 10, this could be secondary to chronic pancreatitis. Patient will receive another dose of IV pain medicine, patient will also receive a CT scan of the abdomen pelvis with IV contrast. All radiologic examinations were read, reviewed by theemergency department attending. From these reads, a plan of care will be put inplace. Patient CT scan of the abdomen pelvis shows fatty hepatic changes with small hypoattenuated nodule. Moderate ascites, mild wall thickening of the urinary bladder. Possible mild small bowel ileus.On reevaluation, the patient was in nodistress. Patient's urinalysis was positive for infection, 1+ bacteria 500-100 white blood cells, 500 leukocytes, patient we have started on Bactrim. A urine culture will be sent. I spoke with the patient at length regarding his symptoms, patient still passing gas, patient is urinating without difficulty. Patient's vital signs have improved. Patient was sleepy because of the morphine. I spoke with the patient regarding his alcohol use, I made it clear that the patient needs to stop drinking alcohol or he could . On reevaluation, patient was still tachycardic, slight hypoxemia, this could be secondary to the morphine. Patient will be reevaluated. Patient continues to need oxygen, patient continues to have abdominal pain. Patient also had some lower blood pressure readings. At this time, due to the patient needs to be admitted to the hospital. I spoke with the hospitalist. Patient will remain on oxygen, patient be given another liter of normal saline. Patient be admitted to the hospital for pleural effusion, hypoxia, alcohol withdrawal, alcohol abuse. I spoke with hospitalist. Stable for admission <Dr. Carlos Augustin MD - Last Filed: 05/09/23 17:14> MDM MDM Narrative Medical decision making narrative: I have personally performed a face to face assessment of the patient and have reviewed the LOGAN Note. I performed a substantive portion of the visit including all aspects of the following. My claudio findings include: History is mostly upper abdominal pain for the past week or so. Nausea but no vomiting. No bright red blood per rectum or melena. Recently admitted voluntarily to detox but then signed out AGAINST MEDICAL ADVICE and has been drinking alcohol ever since. Edema is present but the patient does not realize it. Exam is no acute distress. Abdomen mild diffuse tenderness, no guarding or rebound tenderness. No [place] sign or Huizar Gillespie sign. No CVA tenderness. Norespiratory distress speaking in full sentences heart regular. Pedal edema in his legs and his left upper extremity but not so much in his right. Neurovascular intact distally all 4 extremities. Medical Decison Making Labs obtained, his white blood count is higher than it was last time so we obtained a CT, I reviewed the images and the result which I agree with, it shows nothing acute. He does have some ascites, another area where he appears to be third spacing but he does not have a tense abdomen or problems breathing due to the degree of ascites. He also has a small right pleural effusion that looks like compressive atelectasis there on the 2 view chest x-ray which I interpreted myself, radiology interpreted this as atelectasis versus pneumonia/infiltrate, he does not have any respiratory symptoms or cough or fevers I do not think he needs to be treated for infectiousetiologies here. We did treat him with IV fluids and analgesics, I do not thinkmedically he has any indication for admission to the hospital. His heart rate is improved after the IV fluids we gave him. Other additions or changes: [None] Lab Data Labs: Laboratory Results - last 24 hr 05/09/23 05/09/23 05/09/23 13:59 14:15 16:59 WBC 13.0 H RBC 3.25 L Hgb 11.2 L Hct 33.8 L MCV 104.0 H MCH 34.5 H MCHC 33.1 RDW Std Deviation 59.7 H RDW Coeff of [place] 15.7 H Plt Count 133 L MPV 12.3 H Immature Gran % (Auto) 0.800 Neut % (Auto) 92.8 H Lymph % (Auto) 2.7 L [place] % (Auto) 3.2 Eos % (Auto) 0.0 Baso % (Auto) 0.5 Absolute Neuts (auto) 12.0 H Absolute Lymphs (auto) 0.35 L Nucleated RBC % 0 Platelet Estimate ADEQUATE Macrocytosis 1+ PT 22.6 H INR 2.0 Sodium 137 Potassium 4.0 Chloride 92 L Carbon Dioxide 36.0 H Anion Gap 9 BUN 9 Creatinine 1.50 H Estim Creat Clear Calc 55.78 Est GFR (MDRD) Af Amer 61 Est GFR (MDRD) Non-Af 51 L BUN/Creatinine Ratio 6.0 L Glucose 209 H Calcium 8.0 L Total Bilirubin 1.00 Direct Bilirubin 0.48 H AST 220 H ALT 56 Alkaline Phosphatase 212 H Total Protein 5.4 L Albumin 1.5 L Globulin 3.9 Lipase < 10 L Urine Color Yellow Urine Clarity Sl. Cloudy Urine pH 8.0 Ur Specific [place] 1.015 Urine Protein 100 H Urine Glucose (UA) Normal Urine Ketones Negative Urine Occult Blood 250 H Urine Nitrite Negative Urine Bilirubin Negative Urine Urobilinogen Normal Ur Leukocyte Esterase 500 H Urine RBC 0-5 SEEN Urine WBC 50-100 SEEN Ur Squamous Epith Cells 0 SEEN Urine Bacteria 1+ Urine Mucus 0 SEEN Radiography Diagnostic Testing: Clinical Impression(s) from Imaging Studies Chest X-Ray 05/09/23 14:36 IMPRESSION: Right lower lung infiltrate/atelectasis and trace right pleural effusion. Mild atelectatic changes in the left lung base. Electronically Signed: Jayesh Ludwig MD at 14:50 EDT , Abdomen/Pelvis CT 05/09/23 15:32 IMPRESSION: Fatty hepatic changes with small hypoattenuated nodule. Moderate ascites. Mild wall thickening of the urinary bladder. Possible mild small bowel ileus. Electronically Signed: Cade Jaramillo DO at 16:54 EDT , Discharge Plan Triage Chief Complaint: Abd Pain ED Midlevel Provider: Trish Arevalo ED Provider: Carlos Augustin Dx/Rx/DC Orders Clinical Impression: Intractable abdominal pain, Alcohol withdrawal, Pleural effusion, Hypoxia, Acute UTI Prescriptions: No Action omeprazole 40 mg capsule,delayed release(DR/EC) 40 mg PO DAILY hydrochlorothiazide 12.5 mg tablet 12.5 mg PO DAILY atorvastatin 10 mg tablet 10 mg PO DAILY amlodipine 5 mg tablet 5 mg PO DAILY ramipril 10 mg capsule 10 mg PO BID hydralazine 25 mg tablet 25 mg PO TID dapagliflozin propanediol [Farxiga] 10 mg Tablet 10 mg PO DAILY Hold Instructions: until you speak with your diabetic clinic or PCP. multivitamin Tablet 1 tab PO DAILY potassium chloride 10 mEq tablet,ER particles/crystals 20 meq PO DAILY Patient Comments: PT STATES THEY THINK THEY ARE ON THIS MEDICATION. insulin glargine [Lantus Solostar U-100 Insulin] 100 unit/mL (3 mL) insulin pen 10 unit subcut 1200 Patient Comments: pt stated he has not taken lantus for several days gabapentin 300 mg Capsule 300 mg PO DAILY Patient Comments: PT STATES THEY THINK THEY ARE ON THIS MEDICATION. metformin 500 mg tablet extended release 24 hr 500 mg PO BID Patient Comments: PT STATES THEY TAKE THIS ONCE DAILY. famotidine 40 mg tablet 40 mg PO DAILY metoprolol succinate 50 mg tablet extended release 24 hr 50 mg PO BID Qty: 60 11RF Primary Care Provider: Andreas Pathak NP Referrals: Andreas Pathak VEHICLE MODIFICATION TECHNICIAN, VEHICLE MODIFICATION TECHNICIAN-C [Primary Care Provider] - Disposition Disposition: Acute Care Hospital [facility] What to do if you have Problems For any increased pain, shortness of breath, bleeding, nausea or vomiting, chestpain, or any unexpected problems, contact your Primary Care Provider. Call [facility] ([phone]) or report to the closest Emergency Room. Call 911 if necessary. 05/09/232204 <Electronically signed by Carlos Augustin MD> Cosigner Signature (if applicable): 05/09/232039 <Electronically signed by Trish Arevalo VEHICLE MODIFICATION TECHNICIAN-C> CC: VEHICLE MODIFICATION TECHNICIAN-C Andreas Pathak ~ Signed [facility] Work Phone: [phone] 158-126403-31-2024 Discharge summary Author Carlos Augustin [facility] May 09, 2023 10:05pm Note Date/Time May 09, 2023 1:5 6pm [facility] Medical Records Department [address] [place] [address] Emergency Department Summary 05/09/23 MR#: [id number] Acct: [id number] Name: ANALILIA MELENDREZ Rep #:[id number] : 1960 62 From: Carlos Augustin MD PCP: ALAN Chahal tus:ADM IN Location: [place] [address] HPI <ALAN Dick - Last Filed: 05/09/23 20:40> History of Present Illness Chief Complaint: Abd Pain Narrative Narrative: Patient is a 62-year-old male with diabetes, aortic valve replacement, hypertension, chronic alcohol abuse with chronic pancreatitis who presents to the emergency department for acute on chronic abdominal pain. Patient was recently admitted here on April 21, 2023, patient was admitted and discharged onthe . Patient did go through a detox. Patient on discharge was offered to go to a fpc facility secondary to the weakness as well as his drinking problem. Patient refused, patient was then discharged to his father's house. Patient states since he has been home for the last 2 weeks, he has not taken any of his normal medication. He has not taken any of his heart medicine,any of his diabetic medicine, he is continuing to drink tall boys. At this time, patient is here for evaluation for acute on chronic abdominal pain. PFSH <ALAN Dick - Last Filed: 05/09/23 20:40> PFS Medical History AAA (abdominal aortic aneurysm) Admitted to alcohol detoxification center Adrenal nodule Alcohol dependence Alcoholism Anxiety Ascending aortic dissection (~2005) Cardiac pacemaker in situ (~06/2016) Diabetes Diabetes mellitus, type II Essential hypertension Hiatal hernia History of diabetes mellitus HTN (hypertension) Hx of hypercholesterolemia Left carotid bruit Myocardial infarct Non-sustained ventricular tachycardia Pacemaker Pacemaker Pancreatitis Pure hypercholesterolemia Right bundle branch block (RBBB) Sick sinus syndrome Smoker Substance abuse SVT (supraventricular tachycardia) Thoracic aortic aneurysm Tobacco use Home Medications omeprazole 40 mg capsule,delayed release 40 mg PO DAILY ACID REFLUX 06/10/18 [History Last Taken 04/19/23] amlodipine 5 mg tablet 5 mg PO DAILY BLOOD PRESSURE 10/17/20 [History Last Taken 04/19/23] atorvastatin 10 mg tablet 10 mg PO DAILY CHOLESTEROL 10/17/20 [History Last Taken 04/19/23] hydralazine 25 mg tablet 25 mg PO TID BP 10/17/20 [History Last Taken 04/19/23] hydrochlorothiazide 12.5 mg tablet 12.5 mg PO DAILY BLOOD PRESSURE 10/17/20 [History Last Taken 11/11/21] ramipril 10 mg capsule 10 mg PO BID BLOOD PRESSURE 10/17/20 [History Last Taken 11/11/21] dapagliflozin propanediol 10 mg tablet ([facility] 10 mg PO DAILY DIABETES 09/30/21 [History Last Taken 04/19/23] multivitamin 1 tab PO DAILY SUPPLEMENT 11/11/21 [History Last Taken 11/10/21] potassium chloride 10 mEq tablet,extended release(part/cryst) 20 meq PO DAILY SUPPLEMENT 11/11/21 [History Last Taken Unknown] metoprolol succinate 50 mg tablet,extended release 24 hr 50 mg PO BID BLOOD PRESSURE #60 tabs 10/15/22 [Rx Last Taken 04/19/23] gabapentin 300 mg capsule 300 mg PO DAILY NEUROPATHY 11/14/22 [History Last Taken Unknown] insulin glargine 100 unit/mL (3 mL) subcutaneous pen (Lantus Solostar U-100 Insulin) 10 unit subcut 1200 DIABETES 11/14/22 [History Last Taken 04/19/23] metformin 500 mg tablet,extended release 24 hr 500 mg PO BID DIABETES 11/15/22 [History Last Taken 04/19/23] famotidine 40 mg tablet 40 mg PO DAILY ACID REFLUX 04/20/23 [History Last Taken 04/19/23] Allergy/AdvReac Type Severity Reaction Status Date / Time No Known Allergies Allergy Verified 05/09/23 13:37 Family History Father CAD (coronary artery disease) Mother Dementia Surgical History H/O aortic valve replacement H/O cardiac catheterization History of aortic aneurysm repair (~2016) History of aortic valve replacement with bioprosthetic valve (~2017) History of cataract surgery History of hernia repair Social History (Updated 05/09/23 @ 13:38 by Ann-Marie Nova) household members: family housing: house Smoking Status: Current every day smoker tobacco type: cigarettes alcohol intake: current alcohol intake frequency: 0-2 drinks per day details: Reports currently ~ 2 tall boys daily. substance use type: former substance user caffeine: Yes Type: coffee Number of servings: 3 ROS <ALAN Dick - Last Filed: 05/09/23 20:40> ROS ED ROS Narrative Constitutional: Negative for fever, chills, weight loss, weakness Eyes: Negative for vision loss, vision change, double vision ENT: Negative for any sore throat, ear pain, congestion Cardiovascular: Negative for any chest pain, tightness, palpitations Respiratory: Negative for any cough, sputum production, hemoptysis, dyspnea, dyspnea on exertion, orthopnea Gastrointestinal: Negative for any vomiting, diarrhea, constipation, blood in stool, blood in vomit. Positive for abdominal pain, nausea : Negative for any urinary frequency, dysuria, retention, blood in urine Muscle skeletal: Negative for any neck pain, back pain Neurological: Negative for any headache, syncope, dizziness Skin: Negative for any rashes, itching, abrasions, lacerations Psychiatric: Negative for any depression, anxiety, stress, suicidal ideation, homicidal ideation Hematologic: Negative for any excessive bruising, easy bleeding EXAM <ALAN Dick - Last Filed: 05/09/23 20:40> Physical Exam Narrative Exam Narrative: Vital signs reviewed. Patient is tachycardic. HEET: Head normocephalic atraumatic, TMs clear bilaterally. Posterior pharynx is clear, dry mucous membranes. Nares clear bilaterally. Neck: Supple with no lymphadenopathy or tenderness. No signs of meningismus. Cardiac: Tachycardic rate, clicks secondary to aortic valve repair no murmurs gallops or rubs, equal peripheral pulses bilaterally. Respiratory: Lungs clear to auscultation bilaterally. No chest tenderness. Abdomen: Soft, nondistended. No abdominal bruit or pulsatile masses. Tenderness throughout the entire upper abdomen Extremities: Patient has left upper and bilateral lower edema, +2. No signs of gross trauma or deformity. Active full range of motion of all extremities. Neuro: Cranial nerves II through XII intact, no focal neurological deficits. Skin: Clean dry and intact with no rash, purpura, petechiae, vesicles or pustules. Backs/flank: No CVA tenderness, no midline spinal tenderness, no deformity. Psych: Normal mood and affect. No SI, HI or acute psychosis. Const Vital Signs: 05/09/23 13:31 05/09/23 13:39 05/09/23 15:04 Temperature 98.7 F Temperature Source Oral Pulse Rate 141 H 139 H Respiratory Rate 14 14 Blood Pressure 114/82 H Blood Pressure Mean 92 Pulse Ox 91 91 86 Oxygen Delivery Method Room Air Room Air Room Air Oxygen Flow Rate (L/min) 05/09/23 15:05 05/09/23 13:38 05/09/23 13:45 Temperature Temperature Source Pulse Rate 143 H 140 H Respiratory Rate 14 14 Blood Pressure 111/82 H Blood Pressure Mean 93 Pulse Ox 98 94 Oxygen Delivery Method Nasal Cannula Oxygen Flow Rate (L/min) 3 05/09/23 14:00 05/09/23 14:15 05/09/23 14:30 Temperature Temperature Source Pulse Rate 142 H Respiratory Rate 28 H Blood Pressure 96/72 97/70 Blood Pressure Mean 81 78 Pulse Ox Oxygen Delivery Method Oxygen Flow Rate (L/min) 05/09/23 14:30 05/09/23 14:45 05/09/23 14:46 Temperature Temperature Source Pulse Rate Respiratory Rate Blood Pressure 97/70 94/76 Blood Pressure Mean 78 81 Pulse Ox 78 93 Oxygen Delivery Method Oxygen Flow Rate (L/min) 05/09/23 15:00 05/09/23 15:15 05/09/23 15:30 Temperature Temperature Source Pulse Rate 124 H 119 H Respiratory Rate 16 18 Blood Pressure 104/79 105/72 87/65 L Blood Pressure Mean 89 83 72 Pulse Ox 100 98 Oxygen Delivery Method Oxygen Flow Rate (L/min) 05/09/23 15:45 05/09/23 15:50 05/09/23 16:00 Temperature Temperature Source Pulse Rate 114 H 120 H Respiratory Rate 15 15 Blood Pressure 94/67 98/72 95/71 Blood Pressure Mean 77 81 80 Pulse Ox 100 99 Oxygen Delivery Method Oxygen Flow Rate (L/min) 05/09/23 16:13 05/09/23 16:15 05/09/23 16:30 Temperature Temperature Source Pulse Rate 118 H 115 H 115 H Respiratory Rate 14 16 15 Blood Pressure 106/71 104/72 Blood Pressure Mean 83 81 Pulse Ox 96 92 Oxygen Delivery Method Oxygen Flow Rate (L/min) 05/09/23 16:45 05/09/23 17:00 05/09/23 17:15 Temperature Temperature Source Pulse Rate 115 H 114 H 133 H Respiratory Rate 17 14 16 Blood Pressure 105/77 116/81 H 184/119 H Blood Pressure Mean 86 93 137 Pulse Ox 93 94 Oxygen Delivery Method Oxygen Flow Rate (L/min) 05/09/23 17:30 05/09/23 17:45 05/09/23 18:00 Temperature Temperature Source Pulse Rate 132 H 134 H 143 H Respiratory Rate 14 17 20 H Blood Pressure 162/109 H 180/140 H 160/124 H Blood Pressure Mean 126 152 136 Pulse Ox 95 95 Oxygen Delivery Method Oxygen Flow Rate (L/min) 05/09/23 18:15 05/09/23 18:30 05/09/23 18:45 Temperature Temperature Source Pulse Rate 149 H 144 H 137 H Respiratory Rate 16 21 H 21 H Blood Pressure 157/114 H 139/120 H 133/107 H Blood Pressure Mean 124 127 116 Pulse Ox Oxygen Delivery Method Oxygen Flow Rate (L/min) 05/09/23 19:00 05/09/23 19:15 05/09/23 19:16 Temperature Temperature Source Pulse Rate 130 H 127 H 127 H Respiratory Rate 23 H 21 H 20 H Blood Pressure 93/64 113/78 Blood Pressure Mean 71 89 Pulse Ox Oxygen Delivery Method Oxygen Flow Rate (L/min) 05/09/23 20:00 05/09/23 20:06 Temperature Temperature Source Pulse Rate 135 H Respiratory Rate 24 H Blood Pressure 83/61 L Blood Pressure Mean 68 Pulse Ox 83 94 Oxygen Delivery Method Room Air Nasal Cannula Oxygen Flow Rate (L/min) 2 Positive cachectic and unkempt General Appearance ED: unkempt and cachectic Nutritional Appearance: cachectic Psych Appearance: unkempt <Dr. Carlos Augustin MD - Last Filed: 05/09/23 17:14> Physical Exam Const Vital Signs: 05/09/23 13:31 05/09/23 13:39 05/09/23 15:04 Temperature 98.7 F Temperature Source Oral Pulse Rate 141 H 139 H Respiratory Rate 14 14 Blood Pressure 114/82 H Blood Pressure Mean 92 Pulse Ox 91 91 86 Oxygen Delivery Method Room Air Room Air Room Air Oxygen Flow Rate (L/min) 05/09/23 15:05 05/09/23 13:38 05/09/23 13:45 Temperature Temperature Source Pulse Rate 143 H 140 H Respiratory Rate 14 14 Blood Pressure 111/82 H Blood Pressure Mean 93 Pulse Ox 98 94 Oxygen Delivery Method Nasal Cannula Oxygen Flow Rate (L/min) 3 05/09/23 14:00 05/09/23 14:15 05/09/23 14:30 Temperature Temperature Source Pulse Rate 142 H Respiratory Rate 28 H Blood Pressure 96/72 97/70 Blood Pressure Mean 81 78 Pulse Ox Oxygen Delivery Method Oxygen Flow Rate (L/min) 05/09/23 14:30 05/09/23 14:45 05/09/23 14:46 Temperature Temperature Source Pulse Rate Respiratory Rate Blood Pressure 97/70 94/76 Blood Pressure Mean 78 81 Pulse Ox 78 93 Oxygen Delivery Method Oxygen Flow Rate (L/min) 05/09/23 15:00 05/09/23 15:15 05/09/23 15:30 Temperature Temperature Source Pulse Rate 124 H 119 H Respiratory Rate 16 18 Blood Pressure 104/79 105/72 87/65 L Blood Pressure Mean 89 83 72 Pulse Ox 100 98 Oxygen Delivery Method Oxygen Flow Rate (L/min) 05/09/23 15:45 05/09/23 15:50 05/09/23 16:00 Temperature Temperature Source Pulse Rate 114 H 120 H Respiratory Rate 15 15 Blood Pressure 94/67 98/72 95/71 Blood Pressure Mean 77 81 80 Pulse Ox 100 99 Oxygen Delivery Method Oxygen Flow Rate (L/min) 05/09/23 16:13 05/09/23 16:15 05/09/23 16:30 Temperature Temperature Source Pulse Rate 118 H 115 H 115 H Respiratory Rate 14 16 15 Blood Pressure 106/71 104/72 Blood Pressure Mean 83 81 Pulse Ox 96 92 Oxygen Delivery Method Oxygen Flow Rate (L/min) 05/09/23 16:45 05/09/23 17:00 05/09/23 17:15 Temperature Temperature Source Pulse Rate 115 H 114 H 133 H Respiratory Rate 17 14 16 Blood Pressure 105/77 116/81 H 184/119 H Blood Pressure Mean 86 93 137 Pulse Ox 93 94 Oxygen Delivery Method Oxygen Flow Rate (L/min) 05/09/23 17:30 05/09/23 17:45 05/09/23 18:00 Temperature Temperature Source Pulse Rate 132 H 134 H 143 H Respiratory Rate 14 17 20 H Blood Pressure 162/109 H 180/140 H 160/124 H Blood Pressure Mean 126 152 136 Pulse Ox 95 95 Oxygen Delivery Method Oxygen Flow Rate (L/min) 05/09/23 18:15 05/09/23 18:30 05/09/23 18:45 Temperature Temperature Source Pulse Rate 149 H 144 H 137 H Respiratory Rate 16 21 H 21 H Blood Pressure 157/114 H 139/120 H 133/107 H Blood Pressure Mean 124 127 116 Pulse Ox Oxygen Delivery Method Oxygen Flow Rate (L/min) 05/09/23 19:00 05/09/23 19:15 05/09/23 19:16 Temperature Temperature Source Pulse Rate 130 H 127 H 127 H Respiratory Rate 23 H 21 H 20 H Blood Pressure 93/64 113/78 Blood Pressure Mean 71 89 Pulse Ox Oxygen Delivery Method Oxygen Flow Rate (L/min) 05/09/23 20:00 05/09/23 20:06 Temperature Temperature Source Pulse Rate 135 H Respiratory Rate 24 H Blood Pressure 83/61 L Blood Pressure Mean 68 Pulse Ox 83 94 Oxygen Delivery Method Room Air Nasal Cannula Oxygen Flow Rate (L/min) [address] [facility] <ALAN Dick - Last Filed: 05/09/23 20:40> [facility] Lab Data Labs: Laboratory Results - last 24 hr 05/09/23 05/09/23 05/09/23 13:59 14:15 16:59 WBC 13.0 H RBC 3.25 L Hgb 11.2 L Hct 33.8 L MCV 104.0 H MCH 34.5 H MCHC 33.1 RDW Std Deviation 59.7 H RDW Coeff of Kalpana 15.7 H Plt Count 133 L MPV 12.3 H Immature Gran % (Auto) 0.800 Neut % (Auto) 92.8 H Lymph % (Auto) 2.7 L [place] % (Auto) 3.2 Eos % (Auto) 0.0 Baso % (Auto) 0.5 Absolute Neuts (auto) 12.0 H Absolute Lymphs (auto) 0.35 L Nucleated RBC % 0 Platelet Estimate ADEQUATE Macrocytosis 1+ PT 22.6 H INR 2.0 Sodium 137 Potassium 4.0 Chloride 92 L Carbon Dioxide 36.0 H Anion Gap 9 BUN 9 Creatinine 1.50 H Estim Creat Clear Calc 55.78 Est GFR (MDRD) Af Amer 61 Est GFR (MDRD) Non-Af 51 L BUN/Creatinine Ratio 6.0 L Glucose 209 H Calcium 8.0 L Total Bilirubin 1.00 Direct Bilirubin 0.48 H AST 220 H ALT 56 Alkaline Phosphatase 212 H Total Protein 5.4 L Albumin 1.5 L Globulin 3.9 Lipase < 10 L Urine Color Yellow Urine Clarity Sl. Cloudy Urine pH 8.0 Ur Specific [place] 1.015 Urine Protein 100 H Urine Glucose (UA) Normal Urine Ketones Negative Urine Occult Blood 250 H Urine Nitrite Negative Urine Bilirubin Negative Urine Urobilinogen Normal Ur Leukocyte Esterase 500 H Urine RBC 0-5 SEEN Urine WBC 50-100 SEEN Ur Squamous Epith Cells 0 SEEN Urine Bacteria 1+ Urine Mucus 0 SEEN Radiography Diagnostic Testing: Clinical Impression(s) from Imaging Studies Chest X-Ray 05/09/23 14:36 IMPRESSION: Right lower lung infiltrate/atelectasis and trace right pleural effusion. Mild atelectatic changes in the left lung base. Electronically Signed: Jayesh Ludwig MD at 14:50 EDT , Abdomen/Pelvis CT 05/09/23 15:32 IMPRESSION: Fatty hepatic changes with small hypoattenuated nodule. Moderate ascites. Mild wall thickening of the urinary bladder. Possible mild small bowel ileus. Electronically Signed: Cade Jaramillo DO at 16:54 EDT , EKG Sinus tachycardia: Attestation: I personally reviewed and interpreted this EKG as follows: Comments: Sinus tachycardia, rate of 40 bpm, AL interval 112 ms, QRS duration 100 ms, no acute ST elevation, no acute infarct noted Treatment and Re-Evaluation :: Differential diagnosis includes however is not limited to: Acute on chronic abdominal pain, chronic pancreatitis, bowel obstruction, acute cholecystitis, GERD, ascites, portal hypertension Patient appears to be in no obvious respiratory distress, however patient could be going through alcohol withdrawal, patient's heart rate is 140, patient is in mild amount of pain secondary to pain to his abdomen. Patient appears nontoxic,no fever or chills. Patient received a full abdominal workup including CBC, BMP, liver panel as well as lipase and PT/INR. EKG shows sinus tachycardia. Patient does have some intermittent shaking. Patient will receive IV fluids 500cc, morphine and Zofran. Patient will be reevaluated. Patient CBC shows a leukocytosis white blood count 13.0, on April 20, 2023 therewere 8, this is slightly elevated, patient has chronic anemia. PT/INR was elevated with a PT of 22.6, INR of 2.0, this is likely related to liver injury. Chemistries showed a creatinine of 1.5, patient's AST is 220 which is baseline, ALT is normal, alkaline phosphatase is elevated 212, lipase is less than 10, this could be secondary to chronic pancreatitis. Patient will receive another dose of IV pain medicine, patient will also receive a CT scan of the abdomen pelvis with IV contrast. All radiologic examinations were read, reviewed by theemergency department attending. From these reads, a plan of care will be put inplace. Patient CT scan of the abdomen pelvis shows fatty hepatic changes with small hypoattenuated nodule. Moderate ascites, mild wall thickening of the urinary bladder. Possible mild small bowel ileus.On reevaluation, the patient was in nodistress. Patient's urinalysis was positive for infection, 1+ bacteria 500-100 white blood cells, 500 leukocytes, patient we have started on Bactrim. A urine culture will be sent. I spoke with the patient at length regarding his symptoms, patient still passing gas, patient is urinating without difficulty. Patient's vital signs have improved. Patient was sleepy because of the morphine. I spoke with the patient regarding his alcohol use, I made it clear that the patient needs to stop drinking alcohol or he could . On reevaluation, patient was still tachycardic, slight hypoxemia, this could be secondary to the morphine. Patient will be reevaluated. Patient continues to need oxygen, patient continues to have abdominal pain. Patient also had some lower blood pressure readings. At this time, due to the patient needs to be admitted to the hospital. I spoke with the hospitalist. Patient will remain on oxygen, patient be given another liter of normal saline. Patient be admitted to the hospital for pleural effusion, hypoxia, alcohol withdrawal, alcohol abuse. I spoke with hospitalist. Stable for admission <Dr. Carlos Augustin MD - Last Filed: 05/09/23 17:14> MDM MDM Narrative Medical decision making narrative: I have personally performed a face to face assessment of the patient and have reviewed the LOGAN Note. I performed a substantive portion of the visit including all aspects of the following. My claudio findings include: History is mostly upper abdominal pain for the past week or so. Nausea but no vomiting. No bright red blood per rectum or melena. Recently admitted voluntarily to detox but then signed out AGAINST MEDICAL ADVICE and has been drinking alcohol ever since. Edema is present but the patient does not realize it. Exam is no acute distress. Abdomen mild diffuse tenderness, no guarding or rebound tenderness. No Narayan sign or Huizar Gillespie sign. No CVA tenderness. Norespiratory distress speaking in full sentences heart regular. Pedal edema in his legs and his left upper extremity but not so much in his right. Neurovascular intact distally all 4 extremities. Medical Decison Making Labs obtained, his white blood count is higher than it was last time so we obtained a CT, I reviewed the images and the result which I agree with, it shows nothing acute. He does have some ascites, another area where he appears to be third spacing but he does not have a tense abdomen or problems breathing due to the degree of ascites. He also has a small right pleural effusion that looks like compressive atelectasis there on the 2 view chest x-ray which I interpreted myself, radiology interpreted this as atelectasis versus pneumonia/infiltrate, he does not have any respiratory symptoms or cough or fevers I do not think he needs to be treated for infectiousetiologies here. We did treat him with IV fluids and analgesics, I do not thinkmedically he has any indication for admission to the hospital. His heart rate is improved after the IV fluids we gave him. Other additions or changes: [None] Lab Data Labs: Laboratory Results - last 24 hr 05/09/23 05/09/23 05/09/23 13:59 14:15 16:59 WBC 13.0 H RBC 3.25 L Hgb 11.2 L Hct 33.8 L MCV 104.0 H MCH 34.5 H MCHC 33.1 RDW Std Deviation 59.7 H RDW Coeff of [place] 15.7 H Plt Count 133 L MPV 12.3 H Immature Gran % (Auto) 0.800 Neut % (Auto) 92.8 H Lymph % (Auto) 2.7 L [place] % (Auto) 3.2 Eos % (Auto) 0.0 Baso % (Auto) 0.5 Absolute Neuts (auto) 12.0 H Absolute Lymphs (auto) 0.35 L Nucleated RBC % 0 Platelet Estimate ADEQUATE Macrocytosis 1+ PT 22.6 H INR 2.0 Sodium 137 Potassium 4.0 Chloride 92 L Carbon Dioxide 36.0 H Anion Gap 9 BUN 9 Creatinine 1.50 H Estim Creat Clear Calc 55.78 Est GFR (MDRD) Af Amer 61 Est GFR (MDRD) Non-Af 51 L BUN/Creatinine Ratio 6.0 L Glucose 209 H Calcium 8.0 L Total Bilirubin 1.00 Direct Bilirubin 0.48 H AST 220 H ALT 56 Alkaline Phosphatase 212 H Total Protein 5.4 L Albumin 1.5 L Globulin 3.9 Lipase < 10 L Urine Color Yellow Urine Clarity Sl. Cloudy Urine pH 8.0 Ur Specific [place] 1.015 Urine Protein 100 H Urine Glucose (UA) Normal Urine Ketones Negative Urine Occult Blood 250 H Urine Nitrite Negative Urine Bilirubin Negative Urine Urobilinogen Normal Ur Leukocyte Esterase 500 H Urine RBC 0-5 SEEN Urine WBC 50-100 SEEN Ur Squamous Epith Cells 0 SEEN Urine Bacteria 1+ Urine Mucus 0 SEEN Radiography Diagnostic Testing: Clinical Impression(s) from Imaging Studies Chest X-Ray 05/09/23 14:36 IMPRESSION: Right lower lung infiltrate/atelectasis and trace right pleural effusion. Mild atelectatic changes in the left lung base. Electronically Signed: Jayesh Ludwig MD at 14:50 EDT , Abdomen/Pelvis CT 05/09/23 15:32 IMPRESSION: Fatty hepatic changes with small hypoattenuated nodule. Moderate ascites. Mild wall thickening of the urinary bladder. Possible mild small bowel ileus. Electronically Signed: Cade Jaramillo DO at 16:54 EDT , Discharge Plan Triage Chief Complaint: Abd Pain ED Midlevel Provider: Trish Arevalo ED Provider: Carlos Augustin Dx/Rx/DC Orders Clinical Impression: Intractable abdominal pain, Alcohol withdrawal, Pleural effusion, Hypoxia, Acute UTI Prescriptions: No Action omeprazole 40 mg capsule,delayed release(DR/EC) 40 mg PO DAILY hydrochlorothiazide 12.5 mg tablet 12.5 mg PO DAILY atorvastatin 10 mg tablet 10 mg PO DAILY amlodipine 5 mg tablet 5 mg PO DAILY ramipril 10 mg capsule 10 mg PO BID hydralazine 25 mg tablet 25 mg PO TID dapagliflozin propanediol [Farxiga] 10 mg Tablet 10 mg PO DAILY Hold Instructions: until you speak with your diabetic clinic or PCP. multivitamin Tablet 1 tab PO DAILY potassium chloride 10 mEq tablet,ER particles/crystals 20 meq PO DAILY Patient Comments: PT STATES THEY THINK THEY ARE ON THIS MEDICATION. insulin glargine [Lantus Solostar U-100 Insulin] 100 unit/mL (3 mL) insulin pen 10 unit subcut 1200 Patient Comments: pt stated he has not taken lantus for several days gabapentin 300 mg Capsule 300 mg PO DAILY Patient Comments: PT STATES THEY THINK THEY ARE ON THIS MEDICATION. metformin 500 mg tablet extended release 24 hr 500 mg PO BID Patient Comments: PT STATES THEY TAKE THIS ONCE DAILY. famotidine 40 mg tablet 40 mg PO DAILY metoprolol succinate 50 mg tablet extended release 24 hr 50 mg PO BID Qty: 60 11RF Primary Care Provider: Andreas Pathak NP Referrals: Andreas Pathak NP, VEHICLE MODIFICATION TECHNICIAN-C [Primary Care Provider] - Disposition Disposition: Acute Care Hospital [facility] What to do if you have Problems For any increased pain, shortness of breath, bleeding, nausea or vomiting, chestpain, or any unexpected problems, contact your Primary Care Provider. Call [facility] ([phone]) or report to the closest Emergency Room. Call 911 if necessary. 05/09/232204 <Electronically signed by Carlos Augustin MD> Cosigner Signature (if applicable): 05/09/232039 <Electronically signed by Trish Arevalo VEHICLE MODIFICATION TECHNICIAN-C> CC: VEHICLE MODIFICATION TECHNICIAN-C Andreas Pathak ~ Signed [facility] Work Phone: [phone] Progress note Author Ashley Christiano [facility] April 26, 2023 3:53pm Note Date/Time April 26, 2023 11: 09am [facility] Medical Records Department [address] [place] [address] Progress Note 04/26/23 1105 MR#: [id number] Acct: [id number] Name: ANALILIA MELENDREZ Rep #:[id number] : 1960 62 From: Ashley Alvarado MD PCP: Andreas Pathak, VEHICLE MODIFICATION TECHNICIANAstrid Sta tus:ADM IN Location: [place] [address] Subjective Subjective Patient seen and examined. He had no active complaints. Review of systems was otherwise negative. He has remained hemodynamically stable. He is awaiting placement. Objective Data Objective Data Vital Signs: Vital Signs Temp Pulse Resp BP Pulse Ox O2 Del Method O2 Flow Rate 98.2 F 60 16 129/67 H 94 Room Air 2 04/26/23 10:35 04/26/23 10:35 04/26/23 10:35 04/26/23 10:35 04/26/23 10:35 04/26/23 10:36 04/22/23 22:00 Oxygen Flow Rate (L/min) 2 Oxygen Delivery Method Room Air Weight: 140 lb 14.006 oz Body Mass Index (BMI) 19.7 Intake & Output: Intake and Output for Last 24 Hours 04/24/23 04/25/23 04/26/23 23:59 23:59 23:59 Intake Total 1782.5 / 1981.5 200 / 300 100 / 100 Balance 1782. / 1981. 200 / 300 100 / 100 Lab / Micro Data 04/20/23 12:05 04/21/23 06:30 Labs: Laboratory Results - last 24 hr 04/25/23 11:18: POC Glucose 212 H 04/25/23 15:34: POC Glucose 217 H 04/25/23 21:44: POC Glucose 126 H 04/26/23 07:02: POC Glucose 117 H Physical Exam Const alert, oriented x3 and no apparent distress Constitutional Narrative: frail, weak. General Appearance: cooperative and well developed HEENT normocephalic, head/scalp atraumatic, moist oral mucous membranes and oropharynxnormal Eyes PERRL and EOMs intact bilaterally Neck no lymphadenopathy, supple and no JVD Lymph Lymphatic: no lymphadenopathy noted and no lymphedema noted Resp normal respiratory effort, normal air movement and clear to auscultation bilaterally Cardio regular rate, regular rhythm, S1 normal heart sound, S2 normal heart sound and no murmurs GI normal to inspection, nondistended, normoactive bowel sounds, soft to palpation,non-tender and non-distended Extremity normal capillary refill, no clubbing, cyanosis or edema and no calf tenderness General Extremity: no tenderness to palpation of joints or extremities Skin General Skin Exam: no breakdown Neuro CN's II-XII intact bilaterally, no focal motor deficits, no sensory deficits noted and deep tendon reflexes 2+ bilaterally Neuro Narrative: frail, very weak. Motor Exam: strength 5/5 throughout and general weakness Psych thought process normal, cooperative and affect normal Appearance: appropriate Assessment & Plan Assessment/Plan (1) Alcohol dependence: (2) Chronic pancreatitis: PLAN: Plan #Acute alcohol withdrawal * Currently on alcohol withdrawal protocol with phenobarbital. * On thiamine, folic acid and Multi-Rl. * Adjunctive meds for symptomatic relief. * Monitor CIWA score. * # Debility due to mechanical fall * Patient noted to be very weak during this admission. Did have a fall during this admission and hit his head. CT of the brain done showed chronic involutional changes of the brain and focal areas of decreased attenuation in the posterior aspects of both the right and left parieto-occipital lobes which was present since prior study and most likely the result of prior ischemic insults. Per the record his last CT of the brain done that was seen in our records here is in August 2018. * Patient not on aspirin or Plavix; patient says he is aware of previous strokes, but wasn't aware of any recent strokes. * Placed on p.o. aspirin 81 mg daily. lipid panel is WNL. On atorvastatin 10mg daily * PT OT on board. Fall precautions. #Chronic pancreatitis * Has a history of chronic pancreatitis due to alcohol abuse. He still drinks and says his last drink was the day before admission. * abdominal pain has resolved. * on Creon * counseled to quit drinking * will monitor * #Type 2 diabetes mellitus: On dapagliflozin and Lantus 10 units daily. Also on metformin. Insulin sliding scale. Accu-Cheks ACHS. #Hypertension: on hydrochlorothiazide and hydralazine as well as amlodipine and metoprolol. IV hydralazine as needed. #Hyperlipidemia: On atorvastatin. #Nonsustained Ventricular Tachycardia: On metoprolol. # History of aortic valve replacement: Stable. #GERD: PPI DVT prophylaxis: Low risk. Encourage ambulation. Disposition: In light of his weakness and debility, will benefit from placement. PT OT on board. Awaiting placement. Charges/Coding Visit Charges Inpatient E&M: 83606 Subs Hosp L2 04/26/23 2266 <Electronically signed by Ashley Alvarado MD> Ashley Alvarado MD Cosigner Signature (if applicable): CC: ~ Signed [facility] Work Phone: 1(322) 959-608503-17-2024 Progress note Author [facility] April 25, 2023 2:40pm Note Date/Time April 25, 2023 11: 41[facility] Medical Records Department [address] [place] [address] Progress Note 04/25/23 1135 MR#: [id number] Acct: [id number] Name: ANALILIA MELENDREZ Rep #:[id number] : 1960 62 From: Ashley Alvarado MD PCP: ALAN Chahal tus:ADM IN Location: [place] [address] Subjective Subjective Patient seen and examined. He was alert and communicative. He had no active complaints. review of systems is otherwise negative. Objective Data Objective Data Vital Signs: Vital Signs Temp Pulse Resp BP Pulse Ox O2 Del Method O2 Flow Rate 98.3 F 60 20 H 124/95 H 94 Room Air 2 04/25/23 08:46 04/25/23 09:47 04/25/23 08:46 04/25/23 08:46 04/25/23 08:46 04/25/23 08:46 04/22/23 22:00 Oxygen Flow Rate (L/min) 2 Oxygen Delivery Method Room Air Weight: 140 lb 14.006 oz Body Mass Index (BMI) 19.7 Intake & Output: Intake and Output for Last 24 Hours 04/23/23 04/24/23 04/25/23 23:59 23:59 23:59 Intake Total 1000 / 1000 1782.5 / 1982.5 200 / 200 Balance 999 200 / 200 Lab / Micro Data 04/20/23 12:05 04/21/23 06:30 Labs: Laboratory Results - last 24 hr 04/24/23 06:02: POC Glucose 122 H 04/24/23 11:25: POC Glucose 174 H 04/24/23 16:15: POC Glucose 141 H 04/24/23 23:50: POC Glucose 200 H 04/25/23 06:31: POC Glucose 82 Physical Exam Const alert, oriented x3 and no apparent distress Constitutional Narrative: frail, weak. General Appearance: cooperative HEENT normocephalic, head/scalp atraumatic, moist oral mucous membranes and oropharynxnormal Eyes PERRL and EOMs intact bilaterally Neck no lymphadenopathy, supple and no JVD Lymph Lymphatic: no lymphadenopathy noted and no lymphedema noted Resp normal respiratory effort, normal air movement and clear to auscultation bilaterally Cardio regular rate, regular rhythm, S1 normal heart sound, S2 normal heart sound and no murmurs GI normal to inspection, nondistended, normoactive bowel sounds, soft to palpation,non-tender and non-distended Extremity normal capillary refill, no clubbing, cyanosis or edema and no calf tenderness General Extremity: no tenderness to palpation of joints or extremities Skin General Skin Exam: no breakdown Neuro CN's II-XII intact bilaterally, no focal motor deficits, no sensory deficits noted and deep tendon reflexes 2+ bilaterally Neuro Narrative: frail, very weak. Motor Exam: strength 5/5 throughout and general weakness Psych thought process normal, cooperative and affect normal Appearance: appropriate Assessment & Plan Assessment/Plan (1) Alcohol dependence: (2) Chronic pancreatitis: PLAN: Plan #Acute alcohol withdrawal * Currently on alcohol withdrawal protocol with phenobarbital. * On thiamine, folic acid and Multi-Rl. * Adjunctive meds for symptomatic relief. * Monitor CIWA score. * # Debility due to mechanical fall * Patient noted to be very weak during this admission. Did have a fall yesterday and hit his head. CT of the brain done showed chronic involutional changes of the brain and focal areas of decreased attenuation in the posterior aspects of both the right and left parieto-occipital lobes which was present since prior study and most likely the result of prior ischemic insults. Per the record his last CT of the brain done that was seen in our records here is in August 2018. * Patient not on aspirin or Plavix; patient says he is aware of previous strokes, but wasn't aware of any recent strokes. * Placed on p.o. aspirin 81 mg daily. lipid panel is WNL. Will therefore start on PO atorvasatin 20mg daily * PT OT on board. Fall precautions. #Chronic pancreatitis * Has a history of chronic pancreatitis due to alcohol abuse. He still drinks and says his last drink was the day before admission. * abdominal pain has resolved. * on Creon * counseled to quit drinking * will monitor * #Type 2 diabetes mellitus: On dapagliflozin and Lantus 10 units daily. Also on metformin. Insulin sliding scale. Accu-Cheks ACHS. #Hypertension: on hydrochlorothiazide and hydralazine as well as amlodipine and metoprolol. IV hydralazine as needed. #Hyperlipidemia: On atorvastatin. #Nonsustained Ventricular Tachycardia: On metoprolol. # History of aortic valve replacement: Stable. #GERD: PPI DVT prophylaxis: Low risk. Encourage ambulation. Disposition: In light of his weakness and debility, will benefit from placement. PT OT on board. Awaiting placement. Charges/Coding Visit Charges Inpatient E&M: 06639 Subs Hosp L2 04/25/23 1440 <Electronically signed by Ashley Alvarado MD> Ashley Alvarado MD Cosigner Signature (if applicable): CC: ~ Signed [facility] Work Phone: 1(931) 225-647203-16-2024 Progress note Author Ashley [facility] April 24, 2023 4:53pm Note Date/Time April 24, 2023 11: 10am [facility] Medical Records Department [address] [place] [address] Progress Note 04/24/23 1108 MR#: [id number] Acct: [id number] Name: ANALILIA MELENDREZ Rep #:[id number] : 1960 62 From: Ashley Alvarado MD PCP: Andreas Pathak, VEHICLE MODIFICATION TECHNICIAN-C Sta tus:ADM IN Location: [place] [address] Subjective Subjective Patient seen and examined. He had no active complaints and said he wanted to go home. He however remains weak and is a 2 person assist. Review of systems is otherwise negative. Objective Data Objective Data Vital Signs: Vital Signs Temp Pulse Resp BP Pulse Ox O2 Del Method O2 Flow Rate 97.5 F L 70 18 124/78 H 95 Room Air 2 04/24/23 09:57 04/24/23 10:09 04/24/23 09:57 04/24/23 09:57 04/24/23 09:57 04/24/23 09:57 04/22/23 22:00 Oxygen Flow Rate (L/min) 2 Oxygen Delivery Method Room Air Weight: 140 lb 14.006 oz Body Mass Index (BMI) 19.7 Intake & Output: Intake and Output for Last 24 Hours 04/22/23 04/23/23 04/24/23 23:59 23:59 23:59 Intake Total 2900 / 2900 1000 / 1000 1782.5 / 1782.5 Output Total 400 / 400 Balance 2500 / 2500 1000 / 1000 1782.5 / 1782.5 Lab / Micro Data 04/20/23 12:05 04/21/23 06:30 Labs: Laboratory Results - last 24 hr 04/23/23 12:29: POC Glucose 200 H 04/23/23 17:06: POC Glucose 115 H 04/23/23 21:49: POC Glucose 128 H 04/24/23 08:40: Triglycerides 122, Cholesterol 73, LDL Cholesterol 26, VLDL Cholesterol 24, HDL Cholesterol 23 L Radiography Diagnostic Testing: Radiology Impression Brain CT 04/23/23 12:47 IMPRESSION: Chronic involutional changes of the brain. Since prior study, there are focal areas of decreased attenuation in the posterior aspects of both the right and left parieto-occipital lobes. This most likely secondary to prior ischemic insult. Electronically Signed: Carlos Campos MD at 14:02 EDT , Physical Exam Const alert, oriented x3 and no apparent distress Constitutional Narrative: frail, weak. General Appearance: cooperative HEENT normocephalic, head/scalp atraumatic, moist oral mucous membranes and oropharynxnormal Eyes PERRL and EOMs intact bilaterally Neck no lymphadenopathy, supple and no JVD Lymph Lymphatic: no lymphadenopathy noted and no lymphedema noted Resp normal respiratory effort, normal air movement and clear to auscultation bilaterally Cardio regular rate, regular rhythm, S1 normal heart sound, S2 normal heart sound and no murmurs GI normal to inspection, nondistended, normoactive bowel sounds, soft to palpation,non-tender and non-distended Extremity normal capillary refill, no clubbing, cyanosis or edema and no calf tenderness General Extremity: no tenderness to palpation of joints or extremities Skin General Skin Exam: no breakdown Neuro CN's II-XII intact bilaterally, no focal motor deficits, no sensory deficits noted and deep tendon reflexes 2+ bilaterally Neuro Narrative: frail, very weak. Motor Exam: strength 5/5 throughout and general weakness Psych thought process normal, cooperative and affect normal Appearance: appropriate Assessment & Plan Assessment/Plan (1) Alcohol dependence: (2) Chronic pancreatitis: PLAN: Plan #Acute alcohol withdrawal * Currently on alcohol withdrawal protocol with phenobarbital. * On thiamine, folic acid and Multi-Rl. * Adjunctive meds for symptomatic relief. * Monitor CIWA score. * # Debility due to mechanical fall * Patient noted to be very weak during this admission. Did have a fall yesterday and hit his head. CT of the brain done showed chronic involutional changes of the brain and focal areas of decreased attenuation in the posterior aspects of both the right and left parieto-occipital lobes which was present since prior study and most likely the result of prior ischemic insults. Per the record his last CT of the brain done that was seen in our records here is in August 2018. * Patient not on aspirin or Plavix and it is not clear that he is aware of this history of stroke. * Placed on p.o. aspirin 81 mg daily. Will check lipid panel also placed on high intensity statin. * PT OT on board. Fall precautions. #Chronic pancreatitis * Has a history of chronic pancreatitis due to alcohol abuse. He still drinks a nd says his last drink was the day before admission. * abdominal pain has resolved. * on Creon * counseled to quit drinking * will monitor * #Type 2 diabetes mellitus: On dapagliflozin and Lantus 10 units daily. Also on metformin. Insulin sliding scale. Accu-Cheks ACHS. #Hypertension: on hydrochlorothiazide and hydralazine as well as amlodipine and metoprolol. IV hydralazine as needed. #Hyperlipidemia: On atorvastatin. #Nonsustained Ventricular Tachycardia: On metoprolol. # History of aortic valve replacement: Stable. #GERD: PPI DVT prophylaxis: Low risk. Encourage ambulation. Disposition: In light of his weakness and debility, will benefit from placement. PT OT on board. Awaiting placement. Charges/Coding Visit Charges Inpatient E&M: 79583 Subs Hosp L2 04/24/23 1653 <Electronically signed by Ashley Alvarado MD> Ashley Alvarado MD Cosigner Signature (if applicable): CC: ~ Signed [facility] Work Phone: 1(879) 188-693103-15-2024 Progress note Author [facility] April 23, 2023 3:29pm Note Date/Time April 23, 2023 3:2 1pm [facility] Medical Records Department [address] [place] [address] Progress Note 04/23/23 1519 MR#: [id number] Acct: [id number] Name: ANALILIA MELENDREZ Rep #:[id number] : 1960 62 From: Ashley Alvarado MD PCP: ALAN Chahal tus:ADM IN Location: [place] [id number] Subjective Subjective Patient seen and examined. She had no active complaints this morning. Plan wasfor patient to be discharged but patient was very weak today and required 2 person assist. He also fell and hit his head. Discharge therefore canceled. CT of the brain done showed focal areas of decreased attenuation in the posterior aspects of both the right and left parietal occipital lobes likely a result ofprior ischemic insults. Objective Data Objective Data Vital Signs: Vital Signs Temp Pulse Resp BP Pulse Ox O2 Del Method O2 Flow Rate 97.8 F 77 16 128/94 H 93 Room Air 2 04/23/23 13:00 04/23/23 13:00 04/23/23 13:00 04/23/23 13:00 04/23/23 13:00 04/23/23 14:00 04/22/23 22:00 Oxygen Flow Rate (L/min) 2 Oxygen Delivery Method Room Air Weight: 140 lb 14.006 oz Body Mass Index (BMI) 19.7 Intake & Output: Intake and Output for Last 24 Hours 04/21/23 04/22/23 04/23/23 23:59 23:59 23:59 Intake Total 2457.5 / 2457.5 2900 / 2900 1000 / 1000 Output Total 400 / 400 Balance 2457.5 / 2457.5 2500 / 2500 1000 / 1000 Lab / Micro Data 04/20/23 12:05 04/21/23 06:30 Labs: Laboratory Results - last 24 hr 04/22/23 16:35: POC Glucose 77 04/22/23 21:54: POC Glucose 120 H 04/23/23 06:44: POC Glucose 77 04/23/23 12:29: POC Glucose 200 H Radiography Diagnostic Testing: Radiology Impression Brain CT 04/23/23 12:47 IMPRESSION: Chronic involutional changes of the brain. Since prior study, there are focal areas of decreased attenuation in the posterior aspects of both the right and left parieto-occipital lobes. This most likely secondary to prior ischemic insult. Electronically Signed: Carlos Campos MD at 14:02 EDT , Physical Exam Const alert, oriented x3 and no apparent distress Constitutional Narrative: frail, weak. General Appearance: cooperative HEENT normocephalic, head/scalp atraumatic, moist oral mucous membranes and oropharynxnormal Eyes PERRL and EOMs intact bilaterally Neck no lymphadenopathy, supple and no JVD Lymph Lymphatic: no lymphadenopathy noted and no lymphedema noted Resp normal respiratory effort, normal air movement and clear to auscultation bilaterally Cardio regular rate, regular rhythm, S1 normal heart sound, S2 normal heart sound and no murmurs GI normal to inspection, nondistended, normoactive bowel sounds, soft to palpation,non-tender and non-distended Extremity normal capillary refill, no clubbing, cyanosis or edema and no calf tenderness General Extremity: no tenderness to palpation of joints or extremities Skin General Skin Exam: no breakdown Neuro CN's II-XII intact bilaterally, no focal motor deficits, no sensory deficits noted and deep tendon reflexes 2+ bilaterally Motor Exam: strength 5/5 throughout and general weakness Psych thought process normal, cooperative and affect normal Appearance: appropriate Assessment & Plan Assessment/Plan (1) Alcohol dependence: (2) Chronic pancreatitis: PLAN: Plan #Acute alcohol withdrawal * Currently on alcohol withdrawal protocol with phenobarbital. * On thiamine, folic acid and Multi-Rl. * Adjunctive meds for symptomatic relief. * Monitor CIWA score. * * # Debility due to mechanical fall * Patient noted to be very weak during this admission. Did have a fall today and hit his head. CT of the brain done showed chronic involutional changes of the brain and focal areas of decreased attenuation in the posterior aspects of both the right and left parieto-occipital lobes which was present since prior study and most likely the result of prior ischemic insults. Per the record his last CT of the brain done that was seen in our records here is in August 2018. * Patient not on aspirin or Plavix and it is not clear that he is aware of this history of stroke. * Placed on p.o. aspirin 81 mg daily. Will check lipid panel also placed on high intensity statin. * PT OT on board. Fall precautions. * #Chronic pancreatitis * Has a history of chronic pancreatitis due to alcohol abuse. He still drinks and says his last drink was the day before admission. * abdominal pain has resolved. * on Creon * counseled to quit drinking * will monitor * #Type 2 diabetes mellitus: On dapagliflozin and Lantus 10 units daily. Also on metformin. Insulin sliding scale. Accu-Cheks ACHS. #Hypertension: on hydrochlorothiazide and hydralazine as well as amlodipine and metoprolol. IV hydralazine as needed. #Hyperlipidemia: On atorvastatin. #Nonsustained Ventricular Tachycardia: On metoprolol. # History of aortic valve replacement: Stable. #GERD: PPI DVT prophylaxis: Low risk. Encourage ambulation. Disposition: In light of his weakness and debility, will benefit from placement. PT OT on board. Charges/Coding Visit Charges Inpatient E&M: 52537 Subs Hosp L2 04/23/23 4800 <Electronically signed by Ashley Alvarado MD> Ashley Alvarado MD Cosigner Signature (if applicable): CC: ~ Signed [facility] Work Phone: 1(655) 924-334503-15-2024 Consult note Author Yuri Hartzler [facility] April 23, 2023 11:46am Note Date/Time April 23, 2023 11: 46am [facility] Medical Records Department [address] [place] [address] Counseling Note - Pharmacy 04/23/23 1146 MR#: [id number] Acct: [id number] Name: ANALILIA MELENDREZ Rep #:[id number] : 1960 62 From: Yuri Robbins PCP: ALAN Chahal tus:ADM IN Y Location: [place] [address] Pharmacy [place] Med Reconciliation Pharmacy Service has performed discharge medication reconciliation for this patient. The patient's discharge medication list was reviewed for discrepancies and discrepancies were resolved. Medications at Discharge Home Medications omeprazole 40 mg capsule,delayed release 40 mg PO DAILY ACID REFLUX 06/10/18 amlodipine 5 mg tablet 5 mg PO DAILY BLOOD PRESSURE 10/17/20 atorvastatin 10 mg tablet 10 mg PO DAILY CHOLESTEROL 10/17/20 hydralazine 25 mg tablet 25 mg PO TID BP 10/17/20 hydrochlorothiazide 12.5 mg tablet 12.5 mg PO DAILY BLOOD PRESSURE 10/17/20 ramipril 10 mg capsule 10 mg PO BID BLOOD PRESSURE 10/17/20 dapagliflozin propanediol 10 mg tablet (Farxiga) 10 mg PO DAILY DIABETES 09/30/21 multivitamin 1 tab PO DAILY SUPPLEMENT 11/11/21 potassium chloride 10 mEq tablet,extended release(part/cryst) 20 meq PO DAILY SUPPLEMENT 11/11/21 metoprolol succinate 50 mg tablet,extended release 24 hr 50 mg PO BID BLOOD PRESSURE #60 tabs 10/15/22 gabapentin 300 mg capsule 300 mg PO DAILY NEUROPATHY 11/14/22 insulin glargine 100 unit/mL (3 mL) subcutaneous pen (Lantus Solostar U-100 Insulin) 10 unit subcut 1200 DIABETES 11/14/22 metformin 500 mg tablet,extended release 24 hr 500 mg PO BID DIABETES 11/15/22 famotidine 40 mg tablet 40 mg PO DAILY ACID REFLUX 04/20/23 04/23/23 1146 <Electronically signed by Yuri verdugo> Date _ Yuri Alicearachelalex Signature (if applicable): Date CC: ~ Signed [facility] Work Phone: 1(572) 277-931403-15-2024 Consult note Author Yuri Robbins [facility] April 23, 2023 11:45am Note Date/Time April 23, 2023 11: 45am [facility] Medical Records Department [address] [place] [address] Counseling Note - Pharmacy 04/23/23 1145 MR#: [id number] Acct: [id number] Name: ANALILIA MELENDREZ Rep #:[id number] : 1960 62 From: Yuri Robbins PCP: ALAN Chahal Sta tus:ADM IN Y Location: [facility] [id number] Pharmacy [place] Med Reconciliation Pharmacy Service has performed discharge medication reconciliation for this patient. The patient's discharge medication list was reviewed for discrepancies and discrepancies were resolved. Medications at Discharge Home Medications omeprazole 40 mg capsule,delayed release 40 mg PO DAILY ACID REFLUX 06/10/18 amlodipine 5 mg tablet 5 mg PO DAILY BLOOD PRESSURE 10/17/20 atorvastatin 10 mg tablet 10 mg PO DAILY CHOLESTEROL 10/17/20 hydralazine 25 mg tablet 25 mg PO TID BP 10/17/20 hydrochlorothiazide 12.5 mg tablet 12.5 mg PO DAILY BLOOD PRESSURE 10/17/20 ramipril 10 mg capsule 10 mg PO BID BLOOD PRESSURE 10/17/20 dapagliflozin propanediol 10 mg tablet (Farxiga) 10 mg PO DAILY DIABETES 09/30/21 multivitamin 1 tab PO DAILY SUPPLEMENT 11/11/21 potassium chloride 10 mEq tablet,extended release(part/cryst) 20 meq PO DAILY SUPPLEMENT 11/11/21 metoprolol succinate 50 mg tablet,extended release 24 hr 50 mg PO BID BLOOD PRESSURE #60 tabs 10/15/22 gabapentin 300 mg capsule 300 mg PO DAILY NEUROPATHY 10/07/23 insulin glargine 100 unit/mL (3 mL) subcutaneous pen (Lantus Solostar U-100 Insulin) 10 unit subcut 1200 DIABETES 11/14/22 metformin 500 mg tablet,extended release 24 hr 500 mg PO BID DIABETES 11/15/22 famotidine 40 mg tablet 40 mg PO DAILY ACID REFLUX 04/20/23 04/23/23 1145 <Electronically signed by Yuri verdugo> Date _ Yuri Robbins Cosigner Signature (if applicable): Date CC: ~ Signed [facility] Work Phone: [phone]) 936-241603-15-2024 Discharge summary Author Ashley Alvarado [facility] April 23, 2023 11:44am Note Date/Time April 23, 2023 11: 40am [facility] Medical Records Department [address] [place] [address] Instructions for Home/Discharge Instructions 04/23/23 1139 MR#: [id number] Acct: [id number] Name: ANALILIA MELENDREZ Rep #:[id number] : 1960 62 From: Ashley Alvarado MD PCP: ALAN Chahal Sta tus:ADM IN Discharge Instructions Diet Discharge Diet: Low fat / Low cholesterol Activity Discharge Activity: Return to Normal Activity Weight Bearing Status: Weight bearing as tolerated Dressing / Incision Call your doctor if you observe: Fever of 101 or Higher, Shortness of breath, Dizziness, Swelling in the ankles and Chest pain Follow Up Care Test Results: Test results from this visit will be discussed in further detail at your follow- up appointment, if applicable. Discharge Plan Admission Admit Date/Time: 04/20/23 15:11 Primary Reason for Your Visit: acute alcohol withdrawal Attending Provider: Ashley Alvarado Primary Care Provider: Andreas Pathak NP Consulting Providers: Lucas Frausto Instructions Patient Instructions: ED Withdrawal Alcohol Discharge Orders/Prescriptions Prescriptions: Continued omeprazole 40 mg capsule,delayed release(DR/EC) 40 mg PO DAILY hydrochlorothiazide 12.5 mg tablet 12.5 mg PO DAILY atorvastatin 10 mg tablet 10 mg PO DAILY amlodipine 5 mg tablet 5 mg PO DAILY ramipril 10 mg capsule 10 mg PO BID hydralazine 25 mg tablet 25 mg PO TID dapagliflozin propanediol [Farxiga] 10 mg Tablet 10 mg PO DAILY Hold Instructions: until you speak with your diabetic clinic or PCP. multivitamin Tablet 1 tab PO DAILY potassium chloride 10 mEq tablet,ER particles/crystals 20 meq PO DAILY Patient Comments: PT STATES THEY THINK THEY ARE ON THIS MEDICATION. insulin glargine [Lantus Solostar U-100 Insulin] 100 unit/mL (3 mL) insulin pen 10 unit subcut 1200 gabapentin 300 mg Capsule 300 mg PO DAILY Patient Comments: PT STATES THEY THINK THEY ARE ON THIS MEDICATION. metformin 500 mg tablet extended release 24 hr 500 mg PO BID Patient Comments: PT STATES THEY TAKE THIS ONCE DAILY. famotidine 40 mg tablet 40 mg PO DAILY metoprolol succinate 50 mg tablet extended release 24 hr 50 mg PO BID Qty: 60 11RF Referrals / Follow Up: Andreas Pathak VEHICLE MODIFICATION TECHNICIAN, VEHICLE MODIFICATION TECHNICIAN-C [Primary Care Provider] - Within 1 Week Disposition Disposition (needs filled in before D/C Order can be placed): Home, Self Care 04/23/23 1144<Electronically signed by Ashley Alvarado MD>Ashley Alvarado MD CC: VEHICLE MODIFICATION TECHNICIAN-C Andreas Pathak; Dr. Lucas Frausto MD ~ Signed [facility] Work Phone: 1(785) 112-275503-14-2024 Progress note Author [facility] April 22, 2023 3:41pm Note Date/Time April 22, 2023 11: [address] [place] [address] Health System Medical Records Department [address] [facility] [place] [address] Progress Note 04/22/23 1112 MR#: [id number] Acct: [id number] Name: SAURAVTIBURCIODARNELLANALILIA JAMARI Rep #:[id number] : 1960 62 From: Ashley Alvarado MD PCP: Andreas Pathak VEHICLE MODIFICATION TECHNICIANAstrid Ball tus:ADM IN Location: MS3 [id number] Subjective Subjective Patient seen and examined. He had no complaints. His abdominal pain had improved and he felt much better. Previous times otherwise negative. Objective Data Objective Data Vital Signs: Vital Signs Temp Pulse Resp BP Pulse Ox O2 Del Method O2 Flow Rate 99.0 F 79 16 145/67 H 93 Room Air 2 04/21/23 22:00 04/22/23 08:36 04/21/23 22:00 04/22/23 08:36 04/22/23 09:19 04/22/23 09:19 04/21/23 10:00 Oxygen Flow Rate (L/min) 2 Oxygen Delivery Method Room Air Weight: 140 lb 14.006 oz Body Mass Index (BMI) 19.7 Intake & Output: Intake and Output for Last 24 Hours 04/20/23 04/21/23 04/22/23 23:59 23:59 23:59 Intake Total 2410 / 2410 2457.5 / 2457.5 1000 / 1000 Output Total 400 / 400 Balance 2410 / 2410 2457.5 / 2457.5 600 / 600 Lab / Micro Data 04/20/23 12:05 04/21/23 06:30 Labs: Laboratory Results - last 24 hr 04/21/23 06:30: Hepatitis A IgM Ab Negative, Hep Bs Antigen Negative, Hep B CoreIgM Ab Negative, Hepatitis C Ab (EIA) Non Reactive, Hep C Ab Comment Comment 04/21/23 12:00: POC Glucose 260 H 04/21/23 16:54: POC Glucose 99 04/21/23 21:54: POC Glucose 157 H 04/22/23 00:30: Urine Color Yellow, Urine Clarity Clear, Urine pH 8.0, Ur Specific [place] 1.015, Urine Protein 15 H, Urine Glucose (UA) 100 H, Urine Ketones Negative, Urine Occult Blood Negative, Urine Nitrite Negative, Urine Bilirubin Negative, Urine Urobilinogen Normal, Ur Leukocyte Esterase 25 H, UrineRBC 0-5 SEEN, Urine WBC 0 SEEN, Ur Squamous Epith Cells 5-10 SEEN, Urine Bacteria 0 SEEN, Urine Mucus 0 SEEN 04/22/23 06:26: POC Glucose 133 H Radiography Diagnostic Testing: Radiology Impression Abdomen/Pelvis CT 04/20/23 11:39 IMPRESSION: Diffuse atrophy of the pancreas with calcifications. Hepatomegaly and diffuse fatty infiltration of liver. Ascites. Status post cholecystectomy. Small right pleural effusion with basilar atelectasis. Electronically Signed: Carlos Campos MD at 15:46 EDT , Physical Exam Const alert, oriented x3 and no apparent distress General Appearance: cooperative HEENT normocephalic, head/scalp atraumatic, moist oral mucous membranes and oropharynxnormal Eyes PERRL and EOMs intact bilaterally Neck no lymphadenopathy, supple and no JVD Lymph Lymphatic: no lymphadenopathy noted and no lymphedema noted Resp normal respiratory effort, normal air movement and clear to auscultation bilaterally Cardio regular rate, regular rhythm, S1 normal heart sound, S2 normal heart sound and no murmurs GI normal to inspection, nondistended, normoactive bowel sounds, soft to palpation,non-tender and non-distended Extremity normal capillary refill, no clubbing, cyanosis or edema and no calf tenderness General Extremity: no tenderness to palpation of joints or extremities Skin General Skin Exam: no breakdown Neuro CN's II-XII intact bilaterally, no focal motor deficits, no sensory deficits noted and deep tendon reflexes 2+ bilaterally Motor Exam: strength 5/5 throughout and general weakness Psych thought process normal, cooperative and affect normal Appearance: appropriate Assessment & Plan Assessment/Plan (1) Alcohol dependence: (2) Chronic pancreatitis: PLAN: Plan #Acute alcohol withdrawal * Currently on alcohol withdrawal protocol with phenobarbital. * On thiamine, folic acid and Multi-Rl. * Adjunctive meds for symptomatic relief. * Monitor CIWA score. * #Chronic pancreatitis * Has a history of chronic pancreatitis due to alcohol abuse. He still drinks and says his last drink was the day before admission. * abdominal pain has resolved. * on Creon * counseled to quit drinking * will monitor * #Type 2 diabetes mellitus: On dapagliflozin and Lantus 10 units daily. Also on metformin. Insulin sliding scale. Accu-Cheks ACHS. #Hypertension: on hydrochlorothiazide and hydralazine as well as amlodipine and metoprolol. IV hydralazine as needed. #Hyperlipidemia: On atorvastatin. #Nonsustained Ventricular Tachycardia: On metoprolol. # History of aortic valve replacement: Stable. #GERD: PPI DVT prophylaxis: Low risk. Encourage ambulation. Charges/Coding Visit Charges Inpatient E&M: 75229 Subs Hosp L2 04/22/23 1541 <Electronically signed by Ashley Alvarado MD> Ashley Alvarado MD Cosigner Signature (if applicable): CC: ~ Signed [facility] Work Phone: [phone]) 118-910503-13-2024 Progress note Author Ashley [facility] April 21, 2023 4:06pm Note Date/Time April 21, 2023 2:5 4pm [facility] Medical Records Department [address] [facility] [place] [address] Progress Note 04/21/23 1449 MR#: [id number] Acct: [id number] Name: ANALILIA MELENDREZ Rep #:[id number] : 1960 62 From: Ashley Alvarado MD PCP: ALAN Chahal Sta tus:ADM IN Location: [place] [address] Subjective Subjective Patient seen and examined. HE he was comfortably eating breakfast. He had no active complaints. He said his abdominal pain was getting better. He denied any symptoms of withdrawal. Review of systems otherwise negative. His BP is running low this morning in the 90s systolic. Objective Data Objective Data Vital Signs: Vital Signs Temp Pulse Resp BP Pulse Ox O2 Del Method O2 Flow Rate 97.9 F 61 18 94/61 93 Room Air 2 04/21/23 14:00 04/21/23 14:08 04/21/23 14:00 04/21/23 14:08 04/21/23 14:00 04/21/23 14:00 04/21/23 10:00 Oxygen Flow Rate (L/min) 2 Oxygen Delivery Method Room Air Weight: 140 lb 14.006 oz Body Mass Index (BMI) 19.7 Intake & Output: Intake and Output for Last 24 Hours 04/19/23 04/20/23 04/21/23 23:59 23:59 23:59 Intake Total 2410 / 2410 1600 / 1600 Balance 2410 / 2410 1600 / 1600 Lab / Micro Data 04/20/23 12:05 04/21/23 06:30 Labs: Laboratory Results - last 24 hr 04/20/23 11:50: Urine Opiates Screen NEGATIVE, Urine Methadone Screen NEGATIVE, Ur Barbiturates Screen NEGATIVE, Ur Phencyclidine Scrn NEGATIVE, Ur AmphetaminesScreen NEGATIVE, MDMA (Ecstasy) Screen NEGATIVE, U Benzodiazepines Scrn NEGATIVE, Urine Cocaine Screen NEGATIVE, U Cannabinoids Screen NEGATIVE, Ur DrugScreen Comment 04/20/23 12:05: WBC 8.0, RBC 3.52 L, Hgb 11.8 L, Hct 35.9 L, MCV 102.0 H, MCH 33.5 H, MCHC 32.9, RDW Std Deviation 57.8 H, RDW Coeff of [place] 15.4 H, Plt Count 132 L, MPV 10.8, Immature Gran % (Auto) 0.700, Neut % (Auto) 76.5 H, Lymph % (Auto) 11.2 L, [place] % (Auto) 10.2 H, Eos % (Auto) 0.5, Baso % (Auto) 0.9, Absolute Neuts (auto) 6.1, Absolute Lymphs (auto) 0.90, Sodium 147 H, Potassium 3.3 L, Chloride 103, Carbon Dioxide 37.0 H, Anion Gap 7, BUN 7, Creatinine 1.36 H, Estim Creat Clear Calc 52.21, Est GFR (MDRD) Af Amer 69, Est GFR (MDRD) Non-Af 57 L, BUN/Creatinine Ratio 5.1 L, Glucose 221 H, Calcium 7.8 L, Total Bilirubin 0.90, Direct Bilirubin 0.42 H, AST 276 H, ALT 89 H, Alkaline Phosphatase 199H, Total Protein 5.2 L, Albumin 2.1 L, Globulin 3.1, Lipase < 10 L, Ethyl Alcohol 56.0 04/20/23 16:32: POC Glucose 175 H 04/20/23 21:59: POC Glucose 196 H 04/21/23 06:30: Sodium 143, Potassium 3.6, Chloride 106, Carbon Dioxide 32.0, Anion Gap 5, BUN 6 L, Creatinine 1.15, Estim Creat Clear Calc 61.74, Est GFR (MDRD) Af Amer 83, Est GFR (MDRD) Non-Af 69, BUN/Creatinine Ratio 5.2 L, Pauveaf823, Calcium 7.3 L, Total Bilirubin 1.00, AST 221 H, ALT 70 H, Alkaline Phosphatase 158 H, Total Protein 4.1 L, Albumin 1.6 L, Globulin 2.5, Albumin/Globulin Ratio 0.6 L 04/21/23 06:35: POC Glucose 105 04/21/23 12:00: POC Glucose 260 H Radiography Diagnostic Testing: Radiology Impression Abdomen/Pelvis CT 04/20/23 11:39 IMPRESSION: Diffuse atrophy of the pancreas with calcifications. Hepatomegaly and diffuse fatty infiltration of liver. Ascites. Status post cholecystectomy. Small right pleural effusion with basilar atelectasis. Electronically Signed: Carlos Campos MD at 15:46 EDT , Physical Exam Const alert, oriented x3 and no apparent distress General Appearance: cooperative HEENT normocephalic, head/scalp atraumatic, moist oral mucous membranes and oropharynxnormal Eyes PERRL and EOMs intact bilaterally Neck no lymphadenopathy, supple and no JVD Lymph Lymphatic: no lymphadenopathy noted and no lymphedema noted Resp normal respiratory effort, normal air movement and clear to auscultation bilaterally Cardio regular rate, regular rhythm, S1 normal heart sound, S2 normal heart sound and no murmurs GI normal to inspection, nondistended, normoactive bowel sounds, soft to palpation,non-tender and non-distended Extremity normal capillary refill, no clubbing, cyanosis or edema and no calf tenderness General Extremity: no tenderness to palpation of joints or extremities Skin General Skin Exam: no breakdown Neuro CN's II-XII intact bilaterally, no focal motor deficits, no sensory deficits noted and deep tendon reflexes 2+ bilaterally Motor Exam: strength 5/5 throughout and general weakness Psych thought process normal, cooperative and affect normal Appearance: appropriate Assessment & Plan Assessment/Plan (1) Alcohol dependence: (2) Chronic pancreatitis: PLAN: Plan #Acute alcohol withdrawal * Currently on alcohol withdrawal protocol with phenobarbital. * On thiamine, folic acid and Multi-Rl. * Adjunctive meds for symptomatic relief. * Monitor CIWA score. * #Chronic pancreatitis * Has a history of chronic pancreatitis due to alcohol abuse. He still drinks and says his last drink was the day before admission. * He did complain of some abdominal pain * on Creon * counseled to quit drinking * will monitor * #Type 2 diabetes mellitus: On dapagliflozin and Lantus 10 units daily. Also on metformin. Insulin sliding scale. Accu-Cheks ACHS. #Hypertension; on hydrochlorothiazide and hydralazine as well as amlodipine and metoprolol. IV hydralazine as needed. #Hyperlipidemia: On atorvastatin. #Nonsustained Ventricular Tachycardia: On metoprolol. # History of aortic valve replacement: Stable. #GERD: PPI DVT prophylaxis: Low risk. Encourage ambulation. Charges/Coding Visit Charges Inpatient E&M: 03030 Subs Hosp L2 04/21/23 1606 <Electronically signed by Ashley Alvarado MD> Ashley Alvarado MD Cosigner Signature (if applicable): CC: ~ Signed [facility] Work Phone: 1(755) 384-594703-12-2024 History and physical note Author Lucas Frausto [facility] April 20, 2023 7:17pm Note Date/Time April 20, 2023 3:2 9pm [facility] Medical Records Department [address] [place] [address] H&P Exam - Hospitalist 04/20/23 1526 MR#: [id number] Acct: [id number] Name: ANALILIA MELENDREZ Rep #:[id number] : 1960 62 From: Lucas loyola MD PCP: ALAN Chahal tus:ADM IN Location: [facility] [id number] HPI - General General Date of Admission: 04/20/23 HPI Narrative ANALILIA MELENDREZ, is a 62 M who presents to the hospital requesting alcohol detox. He also states that he has some abdominal pain though this does appear to be a somewhat chronic issue as he does have chronic pancreatitis because of his chronic alcoholism. Lipase was unremarkable and CT scan of his abdomen and pelvis shows some ascitic fluid which was not present in [address] of the chest. He states that this abdominal pain has been going on for several months and he does have a history of alcoholic pancreatitis in the past that appears tohave led to a chronic pancreatitis. His last drink was yesterday and he says that he drinks about 2 tall boys a day and he feels that it is time to get his drinking under control and he states that he is having some anxiety as well as tremors. [facility] Medical History AAA (abdominal aortic aneurysm) Admitted to alcohol detoxification center Adrenal nodule Alcohol dependence Alcoholism Anxiety Ascending aortic dissection (~2005) Cardiac pacemaker in situ (~06/2016) Diabetes Diabetes mellitus, type II Essential hypertension Hiatal hernia History of diabetes mellitus HTN (hypertension) Hx of hypercholesterolemia Left carotid bruit Myocardial infarct Non-sustained ventricular tachycardia Pacemaker Pacemaker Pancreatitis Pure hypercholesterolemia Right bundle branch block (RBBB) Sick sinus syndrome Smoker Substance abuse SVT (supraventricular tachycardia) Thoracic aortic aneurysm Tobacco use Home Medications omeprazole 40 mg capsule,delayed release 40 mg PO DAILY ACID REFLUX 06/10/18 [History Last Taken 04/19/23] amlodipine 5 mg tablet 5 mg PO DAILY BLOOD PRESSURE 10/17/20 [History Last Taken 04/19/23] atorvastatin 10 mg tablet 10 mg PO DAILY CHOLESTEROL 10/17/20 [History Last Taken 04/19/23] hydralazine 25 mg tablet 25 mg PO TID BP 10/17/20 [History Last Taken 04/19/23] hydrochlorothiazide 12.5 mg tablet 12.5 mg PO DAILY BLOOD PRESSURE 10/17/20 [History Last Taken 11/11/21] ramipril 10 mg capsule 10 mg PO BID BLOOD PRESSURE 10/17/20 [History Last Taken 11/11/21] dapagliflozin propanediol 10 mg tablet (Farxiga) 10 mg PO DAILY DIABETES 09/30/21 [History Last Taken 04/19/23] multivitamin 1 tab PO DAILY SUPPLEMENT 11/11/21 [History Last Taken 11/10/21] potassium chloride 10 mEq tablet,extended release(part/cryst) 20 meq PO DAILY SUPPLEMENT 11/11/21 [History Last Taken Unknown] metoprolol succinate 50 mg tablet,extended release 24 hr 50 mg PO BID BLOOD PRESSURE #60 tabs 10/15/22 [Rx Last Taken 04/19/23] gabapentin 300 mg capsule 300 mg PO DAILY NEUROPATHY 11/14/22 [History Last Taken Unknown] insulin glargine 100 unit/mL (3 mL) subcutaneous pen (Lantus Solostar U-100 Insulin) 10 unit subcut 1200 DIABETES 11/14/22 [History Last Taken 04/19/23] metformin 500 mg tablet,extended release 24 hr 500 mg PO BID DIABETES 11/15/22 [History Last Taken 04/19/23] famotidine 40 mg tablet 40 mg PO DAILY ACID REFLUX 04/20/23 [History Last Taken 04/19/23] Allergy/AdvReac Type Severity Reaction Status Date / Time No Known Allergies Allergy Verified 04/20/23 11:33 Family History Father CAD (coronary artery disease) Mother Dementia Surgical History H/O aortic valve replacement H/O cardiac catheterization History of aortic aneurysm repair (~2016) History of aortic valve replacement with bioprosthetic valve (~2016) History of cataract surgery History of hernia repair Social History Smoking Status: Current every day smoker tobacco type: cigarettes alcohol intake: current alcohol intake frequency: 0-2 drinks per day details: Reports currently ~ 2 tall boys daily. substance use type: former substance user caffeine: Yes Type: coffee Number of servings: 3 ROS Constitutional Constitutional: Denies chills, fatigue, fever(s) or malaise Eyes Eyes: Denies blurry vision ENT HEENT: Denies headache(s) or nasal discharge Cardiovascular Cardiovascular: Denies chest pain, dyspnea on exertion or syncope Respiratory/Chest Respiratory/Chest: Denies cough, shortness of breath at rest or shortness of breath with exertion Gastrointestinal Gastrointestinal: Reports abdominal pain; Denies constipation, diarrhea, nausea or vomiting Genitourinary Genitourinary: Denies dysuria Neurologic Neurologic: Reports tremor(s); Denies focal weakness or numbness Psychiatric Psychiatric: Reports anxiety; Denies depression Vital Signs Vital Signs Vital Signs: 04/20/23 11:29 Temperature 97.6 F L Temperature Source Oral Pulse Rate 125 H Respiratory Rate 16 Blood Pressure 154/107 H Blood Pressure Mean 122 Pulse Ox 97 Oxygen Delivery Method Room Air Weight Weight: 140 lb 14.006 oz Body Mass Index (BMI) 19.6 Physical Exam Narrative General: Alert, Oriented x3, Cooperative, No apparent distress, slightly restless HEENT: Atraumatic, PERRLA, EOMI, Normocephalic Oral: Moist Mucosa Neck: Supple, No JVD Lungs: Diminished, Normal air movement, No rhonchi, No wheeze, No rales Cardiovascular: Regular rate, Regular Rhythm, Normal S1, Normal S2, No murmurs Abdomen: Soft, slight epigastric tender, Non-Distended, No Hepato-splenomegaly Extremities: No edema, Capillary Refill Less than 3 Seconds Skin: No rashes, No breakdown Musculoskeletal: No Tenderness to Palpation of Joints or Extremities Neurological: No focal neurological deficits, Motor Exam 5/5 strength throughout, Sensory exam intact to light touch and pain Psych/Mental Status: A little anxious Results Lab / Micro Data 04/20/23 12:05 04/20/23 12:05 Assessment & Plan Assessment/Plan (1) Alcohol abuse: PLAN: Plan 1. Acute alcohol withdrawal/chronic pancreatitis ? Continue with alcohol withdrawal protocol ? Have him follow-up with 180 as an outpatient when he is ready for discharge ? Last drink was yesterday says that he drinks 2, 40 ounce drinks a day ? Given the new ascites obtain a hepatitis panel and recommend that he follow- upwith GI as an outpatient ? Per report lipase was unremarkable 2. HTN/HLD/aortic valve replacement ? Blood pressures are stable ? Continue with his home blood pressure medications ? Continue with Lipitor ? Will monitor make adjustments as necessary 3. DM2 ? Placed on sliding scale insulin and can resume home insulin ? Accu-Cheks ACHS ? Hold metformin ? Will monitor make adjustments as necessary 4. GERD ? Stable ? Continue with PPI DVT: Ambulation 76 minutes was spent on direct patient care, including documentation as well as chart review and collaboration with colleagues Charges/Coding Visit Charges Inpatient E&M: 79649 Init Hosp L3 04/20/231916 <Electronically signed by Lucas Frausto MD> Cosigner Signature (if applicable): CC: ALAN Pathak; Dr. Lucas Frausto MD~ Signed [facility] Work Phone: [phone]) 685-457403-12-2024 Discharge summary Author Chris Call [facility] April 20, 2023 4:43pm Note Date/Time April 20, 2023 11: 43am [facility] Medical Records Department [address] [place] [address] [place] [address] Emergency Department Summary 04/20/23 MR#: [id number] Acct: [id number] Name: ANALILIA MELENDREZ Rep #:[id number] : 1960 62 From: Chris Harvey PCP: ALAN Chahal tus:ADM IN Location: [facility] [id number] HPI HPI - GI History of Present Illness Chief Complaint: Abd Pain Informant: patient Narrative Narrative: Worsening abdominal pain epigastric today. Has had it for months. History of alcoholic pancreatitis. Cannot tolerate when. He drinks reported 2 tall boys a day. Last drink nearly 24 hours ago. He has had alcohol withdrawal seizuresin the past however none recently. Has intermittent tremors. Denies any current abdominal surgery. However states his outpatient workup upper endoscopyand lower endoscopy pending in the next couple weeks. Denies any black or bloody stools. Currently also requesting alcohol detox. He states he has been through the program the past 2 relapse a month ago. He was sober for 6 months. He was vomiting clear fluids today. Currently nauseated. Prior similar symptoms: Yes PFSH PFSH Medical History AAA (abdominal aortic aneurysm) Admitted to alcohol detoxification center Adrenal nodule Alcohol dependence Alcoholism Anxiety Ascending aortic dissection (~2005) Cardiac pacemaker in situ (~06/2016) Diabetes Diabetes mellitus, type II Essential hypertension Hiatal hernia History of diabetes mellitus HTN (hypertension) Hx of hypercholesterolemia Left carotid bruit Myocardial infarct Non-sustained ventricular tachycardia Pacemaker Pacemaker Pancreatitis Pure hypercholesterolemia Right bundle branch block (RBBB) Sick sinus syndrome Smoker Substance abuse SVT (supraventricular tachycardia) Thoracic aortic aneurysm Tobacco use Home Medications omeprazole 40 mg capsule,delayed release 40 mg PO DAILY ACID REFLUX 06/10/18 [History Last Taken 04/19/23] amlodipine 5 mg tablet 5 mg PO DAILY BLOOD PRESSURE 10/17/20 [History Last Taken 04/19/23] atorvastatin 10 mg tablet 10 mg PO DAILY CHOLESTEROL 10/17/20 [History Last Taken 04/19/23] hydralazine 25 mg tablet 25 mg PO TID BP 10/17/20 [History Last Taken 04/19/23] hydrochlorothiazide 12.5 mg tablet 12.5 mg PO DAILY BLOOD PRESSURE 10/17/20 [History Last Taken 11/11/21] ramipril 10 mg capsule 10 mg PO BID BLOOD PRESSURE 10/17/20 [History Last Taken 10/04/22] dapagliflozin propanediol 10 mg tablet (Kristaxiga) 10 mg PO DAILY DIABETES 09/30/21 [History Last Taken 04/19/23] multivitamin 1 tab PO DAILY SUPPLEMENT 11/11/21 [History Last Taken 11/10/21] potassium chloride 10 mEq tablet,extended release(part/cryst) 20 meq PO DAILY SUPPLEMENT 11/11/21 [History Last Taken Unknown] metoprolol succinate 50 mg tablet,extended release 24 hr 50 mg PO BID BLOOD PRESSURE #60 tabs 10/15/22 [Rx Last Taken 04/19/23] gabapentin 300 mg capsule 300 mg PO DAILY NEUROPATHY 11/14/22 [History Last Taken Unknown] insulin glargine 100 unit/mL (3 mL) subcutaneous pen (Lantus Solostar U-100 Insulin) 10 unit subcut 1200 DIABETES 11/14/22 [History Last Taken 04/19/23] metformin 500 mg tablet,extended release 24 hr 500 mg PO BID DIABETES 11/15/22 [History Last Taken 04/19/23] famotidine 40 mg tablet 40 mg PO DAILY ACID REFLUX 04/20/23 [History Last Taken 04/19/23] Allergy/AdvReac Type Severity Reaction Status Date / Time No Known Allergies Allergy Verified 04/20/23 11:33 Family History Father CAD (coronary artery disease) Mother Dementia Surgical History H/O aortic valve replacement H/O cardiac catheterization History of aortic aneurysm repair (~2016) History of aortic valve replacement with bioprosthetic valve (~2016) History of cataract surgery History of hernia repair Social History Smoking Status: Current every day smoker tobacco type: cigarettes alcohol intake: current alcohol intake frequency: 0-2 drinks per day details: Reports currently ~ 2 tall boys daily. substance use type: former substance user caffeine: Yes Type: coffee Number of servings: 3 ROS ROS ED Constitutional Constitutional ED: Denies chills, fever(s) or sweats Eyes Eyes: Denies change in vision ENT ENT ED: Denies dysphagia or sore throat Cardiovascular Cardiovascular: Denies chest pain, leg edema, palpitations or racing heartbeat Respiratory/Chest Respiratory/Chest: Denies cough, dyspnea or dyspnea on exertion Gastrointestinal Gastrointestinal: Reports abdominal pain, nausea and vomiting; Denies diarrhea Genitourinary Genitourinary ED: Denies dysuria, hematuria or urinary frequency Musculoskeletal Musculoskeletal: Denies back pain, extremity pain or neck pain Integumentary Denies rash or wounds Neurologic Neurologic: Denies headache(s), paresthesias or weakness EXAM Physical Exam Const Vital Signs: 04/20/23 11:29 04/20/23 16:05 Temperature 97.6 F L 98.2 F Temperature Source Oral Pulse Rate 125 H 117 H Respiratory Rate 16 16 Blood Pressure 154/107 H 143/80 H Blood Pressure Mean 122 101 Pulse Ox 97 100 Oxygen Delivery Method Room Air Positive well nourished and well developed General Appearance ED: well developed and NAD HEENT Reports moist mucous membranes normocephalic and atraumatic Eyes PERRL, EOMs intact bilaterally and conjunctivae normal General Eye ED: Yes normal appearance of both eyes Neck no lymphadenopathy and supple General: Negative for tenderness Chest Wall Chest: Negative for tenderness Resp normal respiratory effort and normal air movement Effort and Inspection: symmetric chest movement; Negative for respiratory distress Cardio regular rhythm and no murmurs Rate: tachycardic Peripheral Pulses: pulses 2+ throughout GI GI Narrative: Tender epigastric mid abdominal. Negative Hightower's McBurney's tenderness. Palpation: Negative for guarding or rebound tenderness present Back/Spine no CVA tenderness and no thoracic nor lumbar tenderness Extremity normal to inspection General Extremety ED: Negative for edema or tenderness General Extremity: Negative for edema Neuro oriented x3 and no sensory deficits noted Sensorium / Orientation: awake and alert Skin no rashes or lesions noted and no wounds MDM MDM MDM Narrative Medical decision making narrative: Interventions / MDM: Differential diagnosis: Alcohol dependence, pancreatitis Diagnosis considered but do not suspect: AAA however CT negative, no pneumoperitoneum My EKG interpretation: N/A Imaging independently reviewed and interpreted by myself: CT abdomen pelvis IV contrast: Thickened gastric wall, chronic pancreatitis findings, mild abdominal ascites, fatty liver, small pleural effusion. This was radiology due to system being down External documents reviewed: N/A Test considered but not ordered:N/A ED course: Tachycardic on arrival. Abdominal pain for months worsening today. Abdominal labs ordered CT scan. Fluids pain medicines antiemetics. Will plan for admission as he would like alcohol detox. Labs slight alcoholic pancreatitis. Normal lipase. Toxicology negative. Creatinine 1.36. CT scan chronic pancreatitis fatty liver mild ascites. Has noabdominal distention on exam. Clinically stable reevaluation. I discussed with hospitalist, Dr. Frausto for admission with patient requestingdetox. Re-evaluation: stable Disposition discussed with patient/family/significant other: Patient Case discussed with consulting clinician: Hospitalist This note was generated with [employer] dictation software. It may contain incorrectwords, spelling, and punctuation that were not noted in checking the note beforesigning. Radiography Diagnostic Testing: Clinical Impression(s) from Imaging Studies Abdomen/Pelvis CT 04/20/23 11:39 IMPRESSION: Diffuse atrophy of the pancreas with calcifications. Hepatomegaly and diffuse fatty infiltration of liver. Ascites. Status post cholecystectomy. Small right pleural effusion with basilar atelectasis. Electronically Signed: Carlos Campos MD at 15:46 EDT , Discharge Plan Dx/Rx/DC Orders Clinical Impression: Abdominal ascites, Alcohol dependence, Gastric wall thickening, Chronic pancreatitis, Alcoholic hepatitis Disposition Disposition: Acute Care Hospital [facility] Discharge Date/Time: 04/20/23 16:21 What to do if you have Problems For any increased pain, shortness of breath, bleeding, nausea or vomiting, chestpain, or any unexpected problems, contact your Primary Care Provider. Call [facility] ([phone]) or report to the closest Emergency Room. Call 911 if necessary. 04/20/23 1643 <Electronically signed by Chris Harvey> Cosigner Signature (if applicable): CC: VEHICLE MODIFICATION TECHNICIANAstrid Pathak ~ Signed [facility] Work Phone: [phone] 497-968102-19-2024 Evaluation + Plan note Future Scheduled Tests Laboratory* Calcium Level Ionized 03/29/23 * Prostate Specific Antigen 07/14/23 * Reticulocytes (AO) 03/29/23 * A1C Hemoglobin 07/14/23 * Complete Blood Count 03/29/23 * Complete Blood Count 07/14/23 * Lipid Profile 07/14/23 * Albumin/Creatinine Ratio, Random Urine 07/14/23 * PTH, Intact 07/14/23 * Vitamin D Level 07/14/23 * Complete Metabolic Panel 07/14/23 Radiology* US Elastography Liver w/ABD Complete 03/05/23 [facility] 02-19-2024 Evaluation + Plan note Future Scheduled Tests Laboratory* Calcium Level Ionized 03/29/23 * Prostate Specific Antigen 07/14/23 * Reticulocytes (AO) 03/29/23 * A1C Hemoglobin 07/14/23 * Complete Blood Count 03/29/23 * Complete Blood Count 07/14/23 * Lipid Profile 07/14/23 * Albumin/Creatinine Ratio, Random Urine 07/14/23 * PTH, Intact 07/14/23 * Vitamin D Level 07/14/23 * Complete Metabolic Panel 07/14/23 [facility] 02-10-2024 Note. MICRO - Microbiology PROCEDURE: Blood Culture (bacterial) [*1] SOURCE: Blood BODY SITE: COLLECTED DATE/TIME: 03/15/2023 11:04 EST RECEIVED DATE/TIME: 03/15/2023 11:15 EST START DATE/TIME: 03/15/2023 11:15 EST FREE TEXT SOURCE: FINAL REPORTS Final Report [] Verified Date/Time/Personnel: 03/20/2023 11:59 EST Blood Culture: No Growth at 5 days. PRELIMINARY REPORTS Preliminary Report [] Verified Date/Time/Personnel: 03/15/2023 11:59 EST Culture has been received in lab and is no growth to date. Routine cultures are held for 5 days. Performing Locations *1: This test was performed at: [facility], [address] [place] [address], [facility] , [facility], [facility] ([place])03-20-2023 Note. MICRO - Microbiology PROCEDURE: Blood Culture (bacterial) [*1] SOURCE: Blood BODY SITE: COLLECTED DATE/TIME: 03/15/2023 11:04 EST RECEIVED DATE/TIME: 03/15/2023 11:15 EST START DATE/TIME: 03/15/2023 11:15 EST FREE TEXT SOURCE: FINAL REPORTS Final Report [] Verified Date/Time/Personnel: 03/20/2023 11:59 EST Blood Culture: No Growth at 5 days. PRELIMINARY REPORTS Preliminary Report [] Verified Date/Time/Personnel: 03/15/2023 11:59 EST Culture has been received in lab and is no growth to date. Routine cultures are held for 5 days. Performing Locations *1: This test was performed at: [facility], [address] [place] [address], [id number] , [facility], [facility] ([place])03-19-2023 Hospital Discharge instructions Patient Education 03/19/2023 11:39:35 Hospital Discharge After a Stroke Hospital Discharge After a Stroke Being discharged from the hospital after a stroke can feel overwhelming. Many things may be different, and it is normal to feel scared or anxious. Some stroke survivors may be able to return to theirhomes, and others may need more specialized care on a temporary or permanent basis. Your stroke care team will work with you to develop a discharge plan that is best for you. Ask questions if you do not understand something. Invite a friend or family member to participate in discharge planning. Understanding and following your discharge plan can help to prevent another stroke or other problems. Understanding your medicines After a stroke, your health care provider may prescribe one or more types of medicine. It is important to take medicines exactly as told by your health care provider. Serious harm, such as another stroke, can happen if you are unable to take your medicine exactly as prescribed. Make sure you understand: What medicine to take. Why you are taking the medicine. How and when to take it. If it can be taken with your other medicines and herbal supplements. Possible side effects. When to call your health care provider if you have any side effects. How you will get and pay for your medicines. Medical assistance programs may be able to help you pay for prescription medicines if you cannot afford them. If you are taking an anticoagulant, be sure to take it exactly as told by your health care provider. This type of medicine can increase the risk of bleeding because it works to prevent blood from clotting. You may need to take certain precautions to prevent bleeding. You should contact your health care provider if you have: Bleeding or bruising. A fall or other injury to your head. Blood in your urine or stool (feces). Planning for home safety Take steps to prevent falls, such as installing grab bars or using a shower chair. Ask a friend or family member to get needed things in place before you go home if possible. A therapist can come to your home to make recommendations for safety equipment. Ask your health care provider if you would benefit from this service or from home care. Getting needed equipment Ask your health care provider for a list of any medical equipment and supplies you will need at home. These may include items such as: Walkers. Canes. Wheelchairs. Hand-strengthening devices. Special eating utensils. Medical equipment can be rented or purchased, depending on your insurance coverage. Check with your[employer] company about what is covered. Keeping follow-up visits After a stroke, you will need to follow up regularly with a health care provider. You may also needrehabilitation, which can include physical therapy, occupational therapy, or speech-language therapy. Keeping these appointments is very important to your recovery after a stroke. Be sure to bring yourmedicine list and discharge papers with you to your appointments. If you need help to keep track ofyour schedule, use a calendar or appointment reminder. Preventing another stroke Having a stroke puts you at risk for another stroke in the future. Ask your health care provider what actions you can take to lower the risk. These may include: Increasing how much you exercise. Making a healthy eating plan. Quitting smoking. Managing other health conditions, such as high blood pressure, high cholesterol, or diabetes. Limiting alcohol use. Knowing the warning signs of a stroke Make sure you understand the signs of a stroke. Before you leave the hospital, you will receive information outlining the stroke warning signs. Share these with your friends and family members. BE FAST is an easy way to remember the main warning signs of a stroke: B - Balance. Signs are dizziness, sudden trouble walking, or loss of balance. E - Eyes. Signs are trouble seeing or a sudden change in vision. F - Face. Signs are sudden weakness or numbness of the face, or the face or eyelid drooping on one side. A - Arms. Signs are weakness or numbness in an arm. This happens suddenly and usually on one side of the body. S - Speech. Signs are sudden trouble speaking, slurred speech, or trouble understanding what peoplesay. T - Time. Time to call emergency services. Write down what time symptoms started. Other signs of stroke may include: A sudden, severe headache with no known cause. Nausea or vomiting. Seizure. These symptoms may represent a serious problem that is an emergency. Do not wait to see if the symptoms will go away. Get medical help right away. Call your local emergency services (911 in the [place] Do not drive yourself to the hospital. Make note of the time that you had your first symptoms. Your emergency responders or emergency roomstaff will need to know this information. Summary Being discharged from the hospital after a stroke can feel overwhelming. It is normal to feel scared or anxious. Make sure you take medicines exactly as told by your health care provider. Know the warning signs of a stroke, and get help right way if you have any of these symptoms. BE FAST is an easy way to remember the main warning signs of a stroke. This information is not intended to replace advice given to you by your health care provider. Make sure you discuss any questions you have with your health care provider. Document Released: 04/30/2017 Document Revised: 01/28/2018 Document Reviewed: 04/30/2017 [employer] Patient Education 2020 enercast. Follow Up Care 03/15/2023 10:40:43 With:ANDREAS PATHAK APRN - 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 Address: [address] [place] [id number]- When:1-2 days Comments:Please call the office to schedule a follow-up appointment [facility] 02-09-2024 Discharge summary Date of Service 03/19/2023 Discharge Diagnosis 1. Altered mental status, metabolic encephalopathy, improved. 2. Hypertension. 3. Lactic acidosis, improved. 4. Alcohol dependence with possible withdrawal 5. Abnormal CAT scan of the brain concerning for increasing in the size of the CVA on the right frontoparietal infarcts. 6. Diabetes mellitus type 2. 7. Fatty liver 8. Chronic pancreatitis Gastro-esophageal reflux disease without esophagitis (K21.9 - ICD-10-CM) Diaphragmatic hernia without obstruction or gangrene (K44.9 - ICD-10-CM) Hypertensive heart and chronic kidney disease without heart failure, with stage 1 through stage 4 chronic kidney disease, or unspecified chronic kidney disease (I13.10 - ICD-10-CM) Hyperlipidemia, unspecified (E78.5 - ICD-10-CM) Dehydration (E86.0 - ICD-10-CM) Anemia in chronic kidney disease (D63.1 - ICD-10-CM) Alcohol dependence, uncomplicated (F10.20 - ICD-10-CM) Presence of cardiac pacemaker (Z95.0 - ICD-10-CM) Cerebral infarction, unspecified (I63.9 - ICD-10-CM) Cerebral infarction, unspecified (I63.9 - ICD-10-CM) Metabolic encephalopathy (G93.41 - ICD-10-CM) Acidosis, unspecified (E87.20 - ICD-10-CM) Other chronic pancreatitis (K86.1 - ICD-10-CM) Alcohol-induced chronic pancreatitis (K86.0 - ICD-10-CM) Alcohol abuse, uncomplicated (F10.10 - ICD-10-CM) Aneurysm of unspecified site (I72.9 - ICD-10-CM) Type 2 diabetes mellitus with diabetic chronic kidney disease (E11.22 - ICD-10-CM) Chronic kidney disease, stage 3 unspecified (N18.30 - ICD-10-CM) 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 - ICD-10-CM) Unspecified mental disorder due to known physiological condition (F09 - ICD-10-CM) Altered mental status ([id number] - PNED) Additional Orders: Other status: BMP,03/19/23 5:00:00 EST, Next AM Draw (one day only), Blood, Once, Preferred Lab: [facility], Stop date 03/19/23 5:00:00 EST(Complete) Other status: CBC,03/19/23 5:00:00 EST, Next AM Draw (one day only), Blood, Once, Preferred Lab: [facility], Stop date 03/19/23 5:00:00 EST(Complete) Discontinued: Consult Home Health - OT,03/19/23 9:58:00 EST, Home Therapy Order: OT Eval & Treat, Home Therapy Instruction: Full weight bearing, Reason: General Debility Discontinued: Consult Home Health - PT,03/19/23 9:57:00 EST, Home Therapy Order: PT Eval & Treat, Reason: General Debility, Home Therapy Instruction: Full weight bearing Other status: Discharge,03/19/23 9:57:00 EST, Discharged to: Home(Complete) Ordered: Discharge Activity,Resume your pre-hospitalization activity, 03/19/23 9:57:00 EST Ordered: Discharge Diet,Type of Diet: Regular, 03/19/23 9:57:00 EST Hospital Course 62-year-old male with multiple medical problems listed above presented to the hospital with alteredmental status, and hypotension, was diagnosed with metabolic encephalopathy, and hypotension, and alcohol independence, patient was started on alcohol withdrawal protocol, MRI of the brain was done and it showed old stroke no new strokes were identified, PT OT evaluated the patient and they recommended no needs. Patient was examined and evaluated by me today he was awake alert and oriented x 3, denying any chest pain shortness breath cough fever chills, denied any abdominal pain nausea or vomiting, no headache lightheadedness or dizziness, patient was tolerating diet fairly well, he will be discharged hometoday. Allergies NKA Procedures none Consults No qualifying data available. Imaging Results and Diagnostics please see Cerner Objective Vitals and Measurements T: 36.3 C (Oral) TMIN: 36.3 C (Oral) TMAX: 36.7 C (Oral) HR: 90(Monitored) RR: 18 BP: 143/94 SpO2: 96% Weight Dosing Weight: 68.7 kg (03/15/23) Dosing Weight: 68.7 kg (03/15/23) Head: atraumatic normocephalic Neck: supple no JVD Lungs: clear to auscultation bilaterally, no wheezes no accessory muscle use. Heart: S1-S2 regular rate and rhythm, no murmurs Abdomen: soft nontender nondistended, bowel sounds are present all 4 quadrants Lower extremities: no cyanosis, no chronic skin changes, pulse palpable +1 bilaterally, no edema Skin: showed no rash Neurological: patient is awake alert and oriented 3, no focal neurological deficit logical deficit Pending Labs and Studies None Code Status Full code Admission Date 03/15/2023 Discharge Date 03/19/2023 Medications Unchanged amLODIPine (amLODIPine 5 mg oral tablet)1 tab(s) by mouth once a day. cholecalciferol (cholecalciferol 1250 mcg (50,000 intl units) oral capsule)1 cap by mouth every week. dapagliflozin (Farxiga 10 mg oral tablet)1 tab(s) by mouth once a day. Refills: 3. DME (Blood Glucose Test Machine)Use as directed Brand type per insurance or patient preference. Refills: 0. DME (Blood Glucose Test Strips)One Touch Ultra Blue Testi Strips 1 bottle of 100 Use 1 strip to test BS TID. Refills: 11. DME (Blood Glucose Test Strips)1 bottle of 100- PATIENT TESTS 2-3 TIMES PER DAY. Refills: 0. DME (DME MISCellaneous)Libre2 reader. Use with sensor to check blood sugar. Dispense #1 reader, 0 refills. Refills: 0. DME (DME MISCellaneous)Freestyle Mango 2 Sensor. Refills: 0. DME (DME MISCellaneous)Patient needs a refill on Freestyle Mango 2 sensors.. Refills: 3. DME (DME MISCellaneous)Pen needles. Use with Lantus insulin pen for daily injection. dispense #1 box + 11 refills.. Refills: 11. DME (DME MISCellaneous)Libre2 sensors. Use to check blood sugar, replace every 14 days. Dispense #2sensors with 11 refills. Refills: 0. DME (Lancets)qs 1 month supply-PATIENT TESTS 2-3 TIMES PER DAY. Refills: 0. DME (Pen needles 5 mm)qs for 1 month supply. Refills: 0. famotidine (famotidine 40 mg oral tablet)1 tab(s) by mouth daily at bedtime. insulin glargine (Lantus Solostar Pen 100 units/mL 3 mL Pen)10 unit(s) Subcutaneous once a day. Replaces Levemir. Refills: 11. metFORMIN (MetFORMIN (Eqv-Fortamet) 500 mg oral tablet, EXTENDED RELEASE)2 tab(s) by mouth two (2) times a day. Refills: 3. metoprolol (Metoprolol Succinate ER 50 mg oral TABLET extended release)1 tab(s) by mouth once a day. omeprazole (omeprazole 40 mg oral delayed release capsule)1 cap by mouth once a day. ramipril (ramipril 10 mg oral capsule)1 cap by mouth two (2) times a day. Follow Up Follow Up with ANDREAS PATHAK APRN, CNP When Within 1-2 days Why: Please call the office to schedule a follow-up appointment Where: [address] [place] [address]- Follow Up Appointments No qualifying data available. Follow Up Labs/Studies Discharge Labs No Follow-up Labs Discharge Studies No Follow-up Studies Discharge Diet Discharge Diet - Ordered -- Type of Diet: Regular, 03/19/23 9:57:00 EST Discharge Activity Discharge Activity - Ordered -- Resume your pre-hospitalization activity, 03/19/23 9:57:00 EST Condition on Discharge Stable Readmission Risk/Palliative Score No qualifying data available. Discharge Disposition Home Time Spent 32 minutes Digitally Signed by BETTINA CERDA MD on 03/19/2023 12:39 PM [id number] Discharge Instructions Thank you for allowing [facility] to assist you with your healthcare needs. The following is importantdischarge information regarding your hospital visit. Your Care Team ANDREAS PATHAK APRN, CNP Your Diagnosis Altered mental status What to do next Scheduled Follow-Up Appointments Appointment Type When Where Contact InformationMEDS - Diabetic Individual Visit 04/12/2023 01:30 [facility] Diet Visits [phone] Follow Up Appointments Follow Up with ANDREAS PATHAK APRN, CNP When Within 1-2 days Why: Please call the office to schedule a follow-up appointment Where: [address] [place] [address]- The Following Activity and Diet Have Been Ordered for You Discharge Activity - Ordered -- Resume your pre-hospitalization activity, 03/19/23 9:57:00 EST Discharge Diet - Ordered -- Type of Diet: Regular, 03/19/23 9:57:00 EST The Following Equipment Has Been Ordered for You No qualifying data available. The Following Treatments Have Been Ordered for You Discharge Labs No qualifying data available. Discharge Radiology No qualifying data available. Other Therapies No qualifying data available. Post Acute Orders No qualifying data available. Someone Will Contact You Regarding These Home Health Referrals No home referrals have been ordered for you. No one will call you. Allergies NKA Medications Please ask your primary doctor or pharmacist before taking any other medication not listed, including over the counter drugs, herbal medications, vitamins and or supplements as they may interact withyour home medications. What How Much When Why Instructions Last Dose Unchanged amLODIPine (amLODIPine 5 mg oral tablet) 1 tab(s) by mouth Once a day Unchanged cholecalciferol (cholecalciferol 1250 mcg (50,000 intl units) oral capsule) 1 cap by mouth Every week Unchanged dapagliflozin (Farxiga 10 mg oral tablet) 1 tab(s) by mouth Once a day Unchanged DME (Blood Glucose Test Machine) See instructions Use as directed Brand type per insurance or patient preference Unchanged DME (Blood Glucose Test Strips) See instructions One Touch Ultra Blue Testi Strips 1 bottle of 100 Use 1 strip to test BS TID Unchanged DME (Blood Glucose Test Strips) See instructions 1 bottle of 100- PATIENT TESTS 2-3 TIMES PER DAY Unchanged DME (DME MISCellaneous) See instructions Libre2 reader. Use with sensor to check blood sugar. Dispense #1 reader, 0 refills Unchanged DME (DME MISCellaneous) See instructions Freestyle Mango 2 Sensor Unchanged DME (DME MISCellaneous) See instructions Patient needs a refill on Freestyle Mango 2 sensors. Unchanged DME (DME MISCellaneous) See instructions Pen needles. Use with Lantus insulin pen for daily injection. dispense #1 box + 11 refills. Unchanged DME (DME MISCellaneous) See instructions Libre2 sensors. Use to check blood sugar, replace every 14 days. Dispense #2 sensors with 11 refills Unchanged DME (Lancets) See instructions qs 1 month supply-PATIENT TESTS 2-3 TIMES PER DAY Unchanged DME (Pen needles 5 mm) See instructions DM type 2, goal HbA1c < 7.5% qs for 1 month supply Unchanged famotidine (famotidine 40 mg oral tablet) 1 tab(s) by mouth Daily at bedtime Unchanged insulin glargine (Lantus Solostar Pen 100 units/ mL 3 mL Pen) 10 unit(s) Subcutaneous Once a day Replaces Levemir Unchanged metFORMIN (MetFORMIN (Eqv-Fortamet) 500 mg oral tablet, EXTENDED RELEASE) 2 tab(s) by mouth Two (2) times a day Unchanged metoprolol (Metoprolol Succinate ER 50 mg oral TABLET extended release) 1 tab(s) by mouth Once a day Unchanged omeprazole (omeprazole 40 mg oral delayed release capsule) 1 cap by mouth Once a day Unchanged ramipril (ramipril 10 mg oral capsule) 1 cap by mouth Two (2) times a day Please take this list to your next doctor s visit. Bring all medications you take, including over the counter medications, herbals and other supplements with you to your doctor s visit. Patients and families are reminded to discard old lists and to update any records with all medication providers or retail pharmacies. [employer] [facility] Discharge After a Stroke Being discharged from the hospital after a stroke can feel overwhelming. Many things may be different, and it is normal to feel scared or anxious. Some stroke survivors may be able to return to theirhomes, and others may need more specialized care on a temporary or permanent basis. Your stroke care team will work with you to develop a discharge plan that is best for you. Ask questions if you do not understand something. Invite a friend or family member to participate in discharge planning. Understanding and following your discharge plan can help to prevent another stroke or other problems. Understanding your medicines After a stroke, your health care provider may prescribe one or more types of medicine. It is important to take medicines exactly as told by your health care provider. Serious harm, such as another stroke, can happen if you are unable to take your medicine exactly as prescribed. Make sure you understand: What medicine to take. Why you are taking the medicine. How and when to take it. If it can be taken with your other medicines and herbal supplements. Possible side effects. When to call your health care provider if you have any side effects. How you will get and pay for your medicines. Medical assistance programs may be able to help you pay for prescription medicines if you cannot afford them. If you are taking an anticoagulant, be sure to take it exactly as told by your health care provider. This type of medicine can increase the risk of bleeding because it works to prevent blood from clotting. You may need to take certain precautions to prevent bleeding. You should contact your health care provider if you have: Bleeding or bruising. A fall or other injury to your head. Blood in your urine or stool (feces). Planning for home safety Take steps to prevent falls, such as installing grab bars or using a shower chair. Ask a friend or family member to get needed things in place before you go home if possible. A therapist can come to your home to make recommendations for safety equipment. Ask your health care provider if you would benefit from this service or from home care. Getting needed equipment Ask your health care provider for a list of any medical equipment and supplies you will need at home. These may include items such as: Walkers. Canes. Wheelchairs. Hand-strengthening devices. Special eating utensils. Medical equipment can be rented or purchased, depending on your insurance coverage. Check with your[employer] company about what is covered. Keeping follow-up visits After a stroke, you will need to follow up regularly with a health care provider. You may also needrehabilitation, which can include physical therapy, occupational therapy, or speech-language therapy. Keeping these appointments is very important to your recovery after a stroke. Be sure to bring yourmedicine list and discharge papers with you to your appointments. If you need help to keep track ofyour schedule, use a calendar or appointment reminder. Preventing another stroke Having a stroke puts you at risk for another stroke in the future. Ask your health care provider what actions you can take to lower the risk. These may include: Increasing how much you exercise. Making a healthy eating plan. Quitting smoking. Managing other health conditions, such as high blood pressure, high cholesterol, or diabetes. Limiting alcohol use. Knowing the warning signs of a stroke Make sure you understand the signs of a stroke. Before you leave the hospital, you will receive information outlining the stroke warning signs. Share these with your friends and family members. BE FAST is an easy way to remember the main warning signs of a stroke: B - Balance. Signs are dizziness, sudden trouble walking, or loss of balance. E - Eyes. Signs are trouble seeing or a sudden change in vision. F - Face. Signs are sudden weakness or numbness of the face, or the face or eyelid drooping on one side. A - Arms. Signs are weakness or numbness in an arm. This happens suddenly and usually on one side of the body. S - Speech. Signs are sudden trouble speaking, slurred speech, or trouble understanding what peoplesay. T - Time. Time to call emergency services. Write down what time symptoms started. Other signs of stroke may include: A sudden, severe headache with no known cause. Nausea or vomiting. Seizure. These symptoms may represent a serious problem that is an emergency. Do not wait to see if the symptoms will go away. Get medical help right away. Call your local emergency services (911 in the [place] Do not drive yourself to the hospital. Make note of the time that you had your first symptoms. Your emergency responders or emergency roomstaff will need to know this information. Summary Being discharged from the hospital after a stroke can feel overwhelming. It is normal to feel scared or anxious. Make sure you take medicines exactly as told by your health care provider. Know the warning signs of a stroke, and get help right way if you have any of these symptoms. BE FAST is an easy way to remember the main warning signs of a stroke. This information is not intended to replace advice given to you by your health care provider. Make sure you discuss any questions you have with your health care provider. Document Released: 04/30/2017 Document Revised: 01/28/2018 Document Reviewed: 04/30/2017 [employer] Patient Education 2020 enercast. Additional Information VACCINATE! IT SAVES LIVES! Members of the community who have not yet received the COVID-19 vaccine and would like to receive it can visit one of [facility] vaccine clinics. There are many vaccine clinic locations within the [facility]. For locations and available times, please visit [email or web address].[place].gov/. It is important to note that some COVID mobile vaccine clinics are held outdoors and may be canceled in rainy or stormy conditions. To learn more about pediatric vaccinations (ages 5-11), we invite you to visit the [facility] webpage. [email or web address] learn more about the COVID-19 vaccine, we invite you to visit the CDC website for a list of frequently asked questions.https://www.cdc.gov/coronavirus/2019-ncov/vaccines/faq.html [employer] Patient Portal Access Instructions: Stay connected with your healthcare team and access your personal medical information anytime with the [employer] Patient Portal. Please follow the directions below to create your [employer] account: 1.Access the email account you provided upon registration to the hospital/physician office.2.Look for an invitation email from [facility].3.Open the email and access the invitation link: [facility]Inv[facility].4.Fill in the required smith to create your account. To access your account, visit [email or web address]. Click the blue button labeled Access Patient Portal and then log in with the username and password that you created in the steps above. You will be able to view your test results, lab results, a summary of your visits, upcoming appointments and more. There is also a convenient messaging option where you can send secure messages to your p rovider. In addition, you will have the ability to download any documents or summaries to your computer and/or send the information securely to a physician. Remember that your healthcare information is confidential, so carefully consider who you will allowto register on the [employer] Patient Portal for access to your information. You can also access the [facility] [employer] Patient Portal on the [facility] logan. Simply click on Patient Portal and then log into your account. If you would like to receive a full copy of your medical records, please contact the [facility] Medical Records Department by calling [phone], Wednesday through Wednesday between 8 a.m. and 4:30 p.m. HOW TO SAFELY DISPOSE OF PRESCRIPTION MEDICATIONS Please use one of the following methods to safely dispose of your unused medications. 1.Use a drug disposal kit: the drug disposal pouch allows you to safely discard your old and unuseddrugs. Ask your nurse to give you one when you are discharged.2.Visit a local take-back location: Many local pharmacies and police departments have programs that collect old and unwanted prescriptiondrugs. Call your local pharmacy or go to http://bit.ly/0V9Aw1l to find one close to you.3.Make use of household items: Use cat litter or old coffee grounds to dispose medications if other options arenot available. Mix your drugs with these household products, seal them in an airtight container andthrow it into the garbage. Call [facility]: [phone] to be sure your drugs can be disposed of in this way. Some medicines may require a different approach.4.Never flush your medications down the toilet. IF YOU HAVE BEEN PRESCRIBED AN OPIOID FOR PAIN If you have been prescribed an opioid (such as hydrocodone, oxycodone or morphine), it is critical to understand the possible side effects and risks of opioid pain medications. Even when taken as directed, opioids can have several side effects including: Tolerance, meaning you might need to take more of a medication for the same pain relief. Nausea, vomiting and/or constipation. Sleepiness, dizziness, dry mouth, confusion, depression or itching. Physical dependence, meaning you have withdrawal symptoms when a medication is stopped, can develop within a few days. KNOW YOUR RESPONSIBILITIES It is important to know exactly how much and how often to take the opioid pain medications you are prescribed. Never take opioids in higher amounts or more often than prescribed. Do not combine opioids with alcohol or other drugs that cause drowsiness, such as benzodiazepines, also known as benzos, including diazepam and alprazolam, muscle relaxants or sleep aids. Never sell or share prescription opioids. This is illegal. Store opioids in a secure place and out of reach of others (including children, family, friends and visitors). The last page of this document has been signed and retained as a CHART COPY. Signatures Patient Education Materials Hospital Discharge After a Stroke Medication Leaflets My discharge plan and instructions have been reviewed and explained to me and I,ANALILIA MELENDREZ understand my current condition and have read and understand these discharge instructions. I have received a written copy of the plan/instructions. If I have questions, I am aware that I should contact my doctor. Patient/Administrative Operations Coordinator Signature: Date/Time: Relationship to Patient: Witness Name/Signature: Date[facility]Time[id number] Note ORIGINAL EXAMINATION: MRI OF THE BRAIN WITHOUT CONTRAST 03/18/2023 6:38 pm TECHNIQUE: Multiplanar multisequence MRI of the brain was performed without the administration of intravenous contrast. COMPARISON: CT brain 03/15/2023. HISTORY: ORDERING SYSTEM PROVIDED HISTORY: Reason for Exam: confusion, cva FINDINGS: No acute infarct or acute hemorrhage. No midline shift, mass effect or hydrocephalus. There is moderate diffuse atrophy. There are small chronic infarcts involving the lateral aspect of the left frontal lobe and left temporal occipital junction. There is associated ex vacuo dilatation of the occipital horn left lateral ventricle. These areas demonstrate surrounding confluent T2 prolongation compatible with gliosis. Additionally, there is a small chronic hemorrhagic infarct involving the right parietooccipital junction. There is surrounding confluent T2 prolongation compatible with gliosis. There is hemosiderin staining as seen on gradient images. Tiny chronic infarcts are seen in the cerebellar hemispheres bilaterally, left greater than right. Mild patchy periventricular and subcortical white matter T2 prolongation, nonspecific but likely on the basis of chronic small vessel ischemic change. Basilar cisterns are patent. Paranasal sinuses grossly clear. Moderately severe mastoid inflammatory disease bilaterally. IMPRESSION: No acute findings. Multiple bilateral chronic infarcts detailed above. Probable chronic small vessel ischemic change. Moderate diffuse atrophy. Interpreted by: Enmanuel White Preliminary Report By: Enmanuel White Electronically signed By Enmanuel White Dictated Date: 03/18/2023 7:40:48 PM Prelim Date: 03/18/2023 7:45:52 PM Sign Date: 03/18/2023 7:45:52 PM Ordering Provider: [facility]02-08-2024 Note Subjective: Patient seen for altered mental status, hypotension patient was examined and evaluated today, patient denies chest pain, no shortness of breath, no cough, no fever or chills, no abdominal pain, no nausea or vomiting, no headache, tolerating po well, bowel movement is normal, patient states that he feels he is getting stronger with every day Vitals Signs(Last 24 hrs)__Last Charted Minimum Maximum Temp36.7(MAR 18 10:40)36.7(MAR 18 10:40)36.6(MAR 17 15:12) Heart Rate80(MAR 18 10:40)63(MAR 17 23:36)97(MAR 17 16:40) AKC323(MAR 18 10:40)109(MAR 17 23:36)132(MAR 17 15:12) DBP75(MAR 18 10:40)73(MAR 17 23:36)H 97(MAR 17 15:12) Physical examination: HEENT, is atraumatic normocephalic, pupils are equal, no pallor Neck supple no JVD Lungs clear to auscultation bilaterally, no wheezes, no rhonchi, no accessory muscle use Heart S1-S2 regular Abdomen soft nontender nondistended bowel sounds are present all 4 quadrants Lower extremities show no edema, no cyanosis, pulses palpable +2 bilaterally Skin showed no rash Neurological examination patient is awake alert and oriented 3, cranial nerves are grossly intact, no focal neurological defect could be appreciated Assessment and plan: 1. Altered mental status, metabolic encephalopathy, improved. 2. Hypertension. 3. Lactic acidosis, improved. 4. Alcohol dependence with possible withdrawal 5. Abnormal CAT scan of the brain concerning for increasing in the size of the CVA on the right frontoparietal infarcts. 6. Diabetes mellitus type 2. 7. Fatty liver 8. Chronic pancreatitis Plan: 1. Continue with the neurochecks. 2. Proceed with the MRI of the brain. 3. Continue with physical therapy and Occupational Therapy while in the hospital 4. Continue Lovenox for DVT prophylaxis. 5. Continue to monitor patient clinically as well as his labs. Patient understood his plan of care all his questions were answered, his concerns were addressed, again today he declined my offer to call his family stating that he will update the family by himself. Labs: No qualifying data available.No qualifying data available.Medications (24) Active Scheduled: (13) aspirin 81 mg Chewable 81 mg 1 tab(s), Oral, qDayM cholecalciferol 1250 mcg capsule (Vit D3 50,000 unit(s)) 1,250 mcg 1 cap(s), Oral, Wednesday dapagliflozin 10 mg tablet 10 mg 1 tab(s), Oral, qDay enoxaparin 40 mg/ 0.4mL syringe 40 mg 0.4 mL, Subcutaneous, qDay famotidine 40 mg tablet 40 mg 1 tab(s), Oral, qHS folic acid 1 mg tablet 1 mg 1 tab(s), Oral, qDay insulin glargine 10 unit(s) 0.1 mL, Subcutaneous (INT), qDay insulin lispro 100 units/mL Soln (3 mL) Give 0-10 units/dose, Subcutaneous, TIDAC metformin 500 mg ER tablet 1,000 mg 2 tab(s), Oral, BID metoprolol succinate 25 mg ER tablet 25 mg 1 tab(s), Oral, BIDM Nicoderm patch REMOVAL 1 EA, Miscellaneous, q24h nicotine 21 mg/24 hr ER patch 21 mg 1 patch(es), Transdermal, q24h pantoprazole 40 mg EC tablet 40 mg 1 tab(s), Oral, qDayAC Continuous: (1) NS (0.9% nacl) 1,000 mL 1,000 mL, Intravenous, 100 mL/hr PRN: (10) acetaminophen 325 mg Tablet 650 mg 2 tab(s), Oral, q4h acetaminophen-HYDROcodone 325-5 mg tablet 1 tab(s), Oral, q6hr albuterol - ipratropium 2.5 mg-0.5 mg/3 mL Inhal Shania UD 3 mL, Inhalation, q4hRT dextrose 50% Solution Disp syringe 50 mL 12.5 gram(s) 25 mL, IV Push, AsDirected LORAZEPam 0.5 mg tablet 0.5 mg 1 tab(s), Oral, q30min LORAZEPam 1 mg Tablet 1 mg 1 tab(s), Oral, q30min LORAZEPam 2 mg/mL 1 mL vial 1 mg 0.5 mL, IV Push, q30min LORAZEPam 2 mg/mL 1 mL vial 0.5 mg 0.25 mL, IV Push, q30min melatonin 3 mg tablet 3 mg 1 tab(s), Oral, qHS ondansetron 2 mg/ 1 mL 2 mL INJ 4 mg 2 mL, IV Push, q4h Signature: Bettina Cerda MD Digitally Signed by BETTINA CERDA MD on 03/18/2023 01:40 PM [facility] [id number] Note Subjective: Patient seen for altered mental status, hypotension patient was examined and evaluated today, patient denies chest pain, no shortness of breath, no cough, no fever or chills, no abdominal pain, no nausea or vomiting, no headache, tolerating po well, bowel movement is normal, he feels weak tired and fatigued. Vitals Signs(Last 24 hrs)__Last Charted Minimum Maximum Temp36.6(MAR 17 11:11)36.6(MAR 17 11:11)36.6(MAR 16 15:05) Heart Rate66(MAR 17 07:50)66(MAR 17 07:50)88(MAR 16 15:22) WAG597(MAR 17:07)130(MAR 17:07)H 157(MAR 17 02:15) DBP82(MAR 17:07)81(MAR 16 19:11)C 112(MAR 17:11) Physical examination: HEENT, is atraumatic normocephalic, pupils are equal, no pallor Neck supple no JVD Lungs clear to auscultation bilaterally, no wheezes, no rhonchi, no accessory muscle use Heart S1-S2 regular Abdomen soft nontender nondistended bowel sounds are present all 4 quadrants Lower extremities show no edema, no cyanosis, pulses palpable +2 bilaterally Skin showed no rash Neurological examination patient is awake alert and oriented 3, cranial nerves are grossly intact, no focal neurological defect could be appreciated Assessment and plan: 1. Altered mental status, metabolic encephalopathy, improved. 2. Hypertension. 3. Lactic acidosis, improved. 4. Alcohol dependence with possible withdrawal 5. Abnormal CAT scan of the brain concerning for increasing in the size of the CVA on the right frontoparietal infarcts. 6. Diabetes mellitus type 2. 7. Fatty liver 8. Chronic pancreatitis Plan: 1. Continue with the neurochecks. 2. Proceed with the MRI of the brain. 3. Will discontinue IV fluid 4. Continue Lovenox for DVT prophylaxis. 5. Continue to monitor patient clinically as well as his labs. Patient understood his plan of care all his questions were answered, his concerns were addressed, again today he declined my offer to call his family stating that he will update the family by himself. Labs: Basic Metabolic Profile Glucose Level: 69 mg/dL Low (03/17/23 05:54:00) Sodium Level: 139 mEq/L (03/17/23 05:54:00) Potassium Level: 4.4 mEq/L (03/17/23 05:54:00) Chloride: 109 mEq/L (03/17/23 05:54:00) CO2: 27 mEq/L (03/17/23 05:54:00) BUN/Creatinine Ratio: 10.7 ratio (03/17/23 05:54:00) Complete Blood Count WBC: 4.4 10^3/mcL Low (03/17/23 05:54:00) RBC: 3.7 10^6/mcL Low (03/17/23 05:54:00) Hgb: 12.7 G/dL Low (03/17/23 05:54:00) Hct: 37.6 % Low (03/17/23 05:54:00) MCV: 101.7 fL High (03/17/23 05:54:00) MCH: 34.2 pg High (03/17/23 05:54:00) MCHC: 33.7 G/dL (03/17/23 05:54:00) RDW: 14.3 % (03/17/23 05:54:00) Platelet: 189 10^3/mcL (03/17/23 05:54:00) MPV: 9.1 fL (03/17/23 05:54:00) Medications (26) Active Scheduled: (15) cholecalciferol 1250 mcg capsule (Vit D3 50,000 unit(s)) 1,250 mcg 1 cap(s), Oral, Wednesday dapagliflozin 10 mg tablet 10 mg 1 tab(s), Oral, qDay enoxaparin 40 mg/ 0.4mL syringe 40 mg 0.4 mL, Subcutaneous, qDay famotidine 40 mg tablet 40 mg 1 tab(s), Oral, qHS folic acid 1 mg tablet 1 mg 1 tab(s), Oral, qDay insulin glargine 10 unit(s) 0.1 mL, Subcutaneous (INT), qDay insulin lispro 100 units/mL Soln (3 mL) Give 0-10 units/dose, Subcutaneous, TIDAC metformin 500 mg ER tablet 1,000 mg 2 tab(s), Oral, BID metoprolol succinate 25 mg ER tablet 25 mg 1 tab(s), Oral, BIDM Nicoderm patch REMOVAL 1 EA, Miscellaneous, q24h Nicoderm patch REMOVAL 1 EA, Miscellaneous, Once nicotine 21 mg/24 hr ER patch 21 mg 1 patch(es), Transdermal, q24h pantoprazole 40 mg EC tablet 40 mg 1 tab(s), Oral, qDayAC thiamine (w/calcium) 100 mg tablet 100 mg 1 tab(s), Oral, qDay thiamine 200 mg/2 mL Solution 100 mg 1 mL, IV Push, qDay Continuous: (1) NS (0.9% nacl) 1,000 mL 1,000 mL, Intravenous, 100 mL/hr PRN: (10) acetaminophen 325 mg Tablet 650 mg 2 tab(s), Oral, q4h acetaminophen-HYDROcodone 325-5 mg tablet 1 tab(s), Oral, q6hr albuterol - ipratropium 2.5 mg-0.5 mg/3 mL Inhal Shania UD 3 mL, Inhalation, q4hRT dextrose 50% Solution Disp syringe 50 mL 12.5 gram(s) 25 mL, IV Push, AsDirected LORAZEPam 0.5 mg tablet 0.5 mg 1 tab(s), Oral, q30min LORAZEPam 1 mg Tablet 1 mg 1 tab(s), Oral, q30min LORAZEPam 2 mg/mL 1 mL vial 1 mg 0.5 mL, IV Push, q30min LORAZEPam 2 mg/mL 1 mL vial 0.5 mg 0.25 mL, IV Push, q30min melatonin 3 mg tablet 3 mg 1 tab(s), Oral, qHS ondansetron 2 mg/ 1 mL 2 mL INJ 4 mg 2 mL, IV Push, q4h Signature: Bettina Cerda MD Digitally Signed by BETTINA CERDA MD on 03/17/2023 01:16 PM [facility] [id number] Note. MICRO - Microbiology PROCEDURE: Urine Culture [*1] SOURCE: Urine, Clean Catch BODY SITE: COLLECTED DATE/TIME: 03/15/2023 13:52 EST RECEIVED DATE/TIME: 03/15/2023 14:32 EST START DATE/TIME: 03/15/2023 14:32 EST FREE TEXT SOURCE: FINAL REPORTS Final Report [] Verified Date/Time/Personnel: 03/17/2023 07:01 EST No growth at 48 hours. PRELIMINARY REPORTS Preliminary Report [] Verified Date/Time/Personnel: 03/16/2023 09:32 EST No growth to date Performing Locations *1: This test was performed at: [facility], [address] [place] [address], [id number] , [facility], [facility] ([place])03-16-2023 Note Subjective: Patient seen for altered mental status, hypotension patient was examined and evaluated today, patient denies chest pain, no shortness of breath, no cough, no fever or chills, no abdominal pain, no nausea or vomiting, no headache, tolerating po well, bowel movement is normal, he feels weak tired and fatigued. Vitals Signs(Last 24 hrs)__Last Charted Minimum Maximum Temp37(MAR 16 11:15)35.8(MAR 15 23:53)37(MAR 16:15) Heart RateH 116(MAR 16 11:15)H 116(MAR 16 11:15)C 121(MAR 16 10:50) TVF966(MAR 16 11:15)121(MAR 15 13:35)H 159(MAR 16 08:15) DBP88(MAR 16 11:15)74(MAR 15 13:50)C 124(MAR 15 15:15) Physical examination: HEENT, is atraumatic normocephalic, pupils are equal, no pallor Neck supple no JVD Lungs clear to auscultation bilaterally, no wheezes, no rhonchi, no accessory muscle use Heart S1-S2 regular Abdomen soft nontender nondistended bowel sounds are present all 4 quadrants Lower extremities show no edema, no cyanosis, pulses palpable +2 bilaterally Skin showed no rash Neurological examination patient is awake alert and oriented 3, cranial nerves are grossly intact, no focal neurological defect could be appreciated Assessment and plan: 1. Altered mental status, metabolic encephalopathy, improved. 2. Hypertension. 3. Lactic acidosis, improved. 4. Alcohol dependence with possible withdrawal 5. Abnormal CAT scan of the brain concerning for increasing in the size of the CVA on the right frontoparietal infarcts. 6. Diabetes mellitus type 2. 7. Fatty liver 8. Chronic pancreatitis Plan: 1. Continue with the neurochecks. 2. Proceed with the MRI of the brain. 3. Continue with IV fluid for 1 L then reassess. 4. Continue Lovenox for DVT prophylaxis. 5. Continue to monitor patient clinically as well as his labs. Patient understood his plan of care all his questions were answered, his concerns were addressed, he declined my offer to call his family stating that he will update the family by himself. Labs: Basic Metabolic Profile Glucose Level: 263 mg/dL High (03/16/23 08:53:00) Sodium Level: 137 mEq/L (03/16/23 08:53:00) Potassium Level: 4.7 mEq/L (03/16/23 08:53:00) Chloride: 110 mEq/L (03/16/23 08:53:00) CO2: 26 mEq/L (03/16/23 08:53:00) BUN/Creatinine Ratio: 9 ratio Low (03/16/23 08:53:00) Complete Blood Count WBC: 6.7 10^3/mcL (03/16/23 07:49:00) RBC: 3.8 10^6/mcL Low (03/16/23 07:49:00) Hgb: 13 G/dL (03/16/23 07:49:00) Hct: 38.7 % Low (03/16/23 07:49:00) MCV: 101.7 fL High (03/16/23 07:49:00) MCH: 34.1 pg High (03/16/23 07:49:00) MCHC: 33.5 G/dL (03/16/23 07:49:00) RDW: 14.7 % (03/16/23 07:49:00) Platelet: 196 10^3/mcL (03/16/23 07:49:00) MPV: 8.6 fL (03/16/23 07:49:00) Medications (26) Active Scheduled: (15) cholecalciferol 1250 mcg capsule (Vit D3 50,000 unit(s)) 1,250 mcg 1 cap(s), Oral, Wednesday dapagliflozin 10 mg tablet 10 mg 1 tab(s), Oral, qDay enoxaparin 40 mg/ 0.4mL syringe 40 mg 0.4 mL, Subcutaneous, qDay famotidine 40 mg tablet 40 mg 1 tab(s), Oral, qHS folic acid 1 mg tablet 1 mg 1 tab(s), Oral, qDay insulin glargine 10 unit(s) 0.1 mL, Subcutaneous (INT), qDay insulin lispro 100 units/mL Soln (3 mL) Give 0-10 units/dose, Subcutaneous, TIDAC metformin 500 mg ER tablet 1,000 mg 2 tab(s), Oral, BID metoprolol succinate 25 mg ER tablet 25 mg 1 tab(s), Oral, BIDM Nicoderm patch REMOVAL 1 EA, Miscellaneous, q24h Nicoderm patch REMOVAL 1 EA, Miscellaneous, Once nicotine 21 mg/24 hr ER patch 21 mg 1 patch(es), Transdermal, q24h pantoprazole 40 mg EC tablet 40 mg 1 tab(s), Oral, qDayAC thiamine (w/calcium) 100 mg tablet 100 mg 1 tab(s), Oral, qDay thiamine 200 mg/2 mL Solution 100 mg 1 mL, IV Push, qDay Continuous: (1) NS (0.9% nacl) 1,000 mL 1,000 mL, Intravenous, 100 mL/hr PRN: (10) acetaminophen 325 mg Tablet 650 mg 2 tab(s), Oral, q4h acetaminophen-HYDROcodone 325-5 mg tablet 1 tab(s), Oral, q6hr albuterol - ipratropium 2.5 mg-0.5 mg/3 mL Inhal Shania UD 3 mL, Inhalation, q4hRT dextrose 50% Solution Disp syringe 50 mL 12.5 gram(s) 25 mL, IV Push, AsDirected LORAZEPam 0.5 mg tablet 0.5 mg 1 tab(s), Oral, q30min LORAZEPam 1 mg Tablet 1 mg 1 tab(s), Oral, q30min LORAZEPam 2 mg/mL 1 mL vial 1 mg 0.5 mL, IV Push, q30min LORAZEPam 2 mg/mL 1 mL vial 0.5 mg 0.25 mL, IV Push, q30min melatonin 3 mg tablet 3 mg 1 tab(s), Oral, qHS ondansetron 2 mg/ 1 mL 2 mL INJ 4 mg 2 mL, IV Push, q4h Signature: Bettina Cerda MD Digitally Signed by BETTINA CERDA MD on 03/16/2023 01:25 PM [facility] [id number] History and physical note Date of Service 03/15/2023 Chief Complaint Patient was getting an outpatient US and drank two tall boys prior to the procedure came in AMS andnot following comments History of Present Illness 62-year-old male past medical history of alcoholism, CKD, insulin-dependent diabetes, chronic pancreatitis, hypertension, CVA, status post prostatic mitral valve, status post pacemaker, presented to altered mental status and hypotension from ultrasound. Patient reports right upper ultrasound and hewas found to be confused altered response was called. Was found to be hypotensive systolic blood pressure in the 80s blood pressure of 80/58. Given IV fluids transfer to the ICU. CT abdomen pelvis obtained in the ER showed fatty liver cirrhotic morphology identified also with signs of chronic pancreatitis. CT brain with small to moderate right frontoparietal infarct which is chronic but significan tly increased in size compared to previous study. Chest x-ray bilateral mild lower airspace opacities concerning for possible atelectasis versus infection. Start on alcohol withdrawal protocol. Whitecount 5300. Urinalysis without concern for UTI. Lactic acid 4.2 improved to 2.2 with IV fluids. Respirate panel negative for flu COVID RSV. Patient did drink this morning before going to the ultrasound. Review of Systems 14 point review of system was discussed and reviewed as negative unless otherwise specified above Physical Exam Vitals and Measurements T: 36.1 C (Oral) HR: 125(Monitored) RR: 14 BP: 122/90 SpO2: 98% WT: 68.7 kg Weight Dosing Weight: 68.7 kg (03/15/23) General- in no acute distress, alert Cardiac- Normal S1 S2, with no murmur rubs or gallops, no edema HEENT- PERRLA, eyes- sclera nonicteric, oral mucosa moist Lungs- Clear to auscultation bilaterally Abdomen- Nontender to palpation, positive bowel sounds Neurology- No focal neuro deficit, follows command Skin- no rash Psychiatry- oriented x3 Lab Results 03/15 11:04 WBC: 5.3 Hgb: 12.8 L Hct: 38.5 L Platelet: 204 Neutrophil %: 60.3 Glucose Level: 241 H Sodium Level: 141 Potassium Level: 4.1 BUN: <5.0 L Creatinine Lvl (s): 0.92 EKG EC03/15/23: SINUS RHYTHM ATRIAL PREMATURE COMPLEX RIGHT BUNDLE BRANCH BLOCK Electronic Signature: SAMY RUELAS MD 03/15/2023 11:33:28 Assessment/Plan Altered mental status Assessment 1. Altered mental status 2. Hypotension 3. Lactic acidosis 4. Alcohol dependence with probable withdrawal 5. Abnormal CT brain concerning for worsening frontal CVA 6. Insulin-dependent diabetes Plan 1. CT brain reviewed given concern for worsening CVA we will go ahead and order MRI of the brain without contrast. Unsure if his pacemaker is MRI compatible. May benefit from neurology consultation. Continue IV hydration. Hold Norvasc and metoprolol. Check ammonia level. DVT prophylaxis. Insulin regimen with home basal insulin sliding scale. PT OT. Alcohol withdrawal protocol. This document was transcribed using a voice recognition software and may contain typographical errors. Orders: insulin lispro (HumaLOG), Start: 03/15/23 17:00:00 EST, Give 0-10 units/dose, Subcutaneous, TIDAC, 03/15/23 15:58:00 EST Sodium Chloride 0.9% intravenous solution 1,000 mL, Start: 03/15/23 15:58:00 EST, Rate: 100 mL/hr, 03/15/23 15:58:00 EST Bed Request - Admit Blood Glucose Monitoring Bedside PRN Blood Glucose Monitoring POC Problem List/Past Medical History Ongoing Abnormal EKG Adrenal nodule Alcoholism Anemia in CKD (chronic kidney disease) Aortic valve replaced Chronic pancreatitis CKD stage 3 secondary to diabetes Depression DM type 2, goal HbA1c < 7.5% ED (erectile dysfunction) Elevated liver enzymes HANNA GERD (gastroesophageal reflux disease) Hiatal hernia History of kidney stones History of pacemaker History of prosthetic mitral valve History of TIA (transient ischemic attack) History of tricuspid valve disorder Holosystolic murmur, 3/ HTN, goal below 140/90 Hyperlipidemia LDL goal <100 Increased BMI Left ventricular hypertrophy No-show for appointment Right nephrolithiasis Screening for prostate cancer Uncontrolled diabetes mellitus Vitamin D deficiency Historical Anemia of chronic disease Procedure/Surgical History Repair of thoracic aortic aneurysm AVR - Aortic valve replacement Pacemaker catheter, device Medications Home Medications (19) Active amLODIPine 5 mg oral tablet 5 mg = 1 tab(s), Oral, qDay Blood Glucose Test Machine See Instructions Blood Glucose Test Strips See Instructions Blood Glucose Test Strips See Instructions cholecalciferol 1250 mcg (50,000 intl units) oral capsule 1,250 mcg = 1 cap(s), Oral, qWeek DME MISCellaneous See Instructions DME MISCellaneous See Instructions DME MISCellaneous See Instructions DME MISCellaneous See Instructions DME MISCellaneous See Instructions famotidine 40 mg oral tablet 40 mg = 1 tab(s), Oral, qHS Farxiga 10 mg oral tablet 10 mg = 1 tab(s), Oral, qDay Lancets See Instructions Lantus Solostar Pen 100 units/mL 3 mL Pen 10 unit(s), Subcutaneous, qDay MetFORMIN (Eqv-Fortamet) 500 mg oral tablet, EXTENDED RELEASE 1,000 mg = 2 tab(s), Oral, BID Metoprolol Succinate ER 50 mg oral TABLET extended release 50 mg = 1 tab(s), Oral, qDay omeprazole 40 mg oral delayed release capsule 40 mg = 1 cap(s), Oral, qDay Pen needles 5 mm See Instructions ramipril 10 mg oral capsule 10 mg = 1 cap(s), Oral, BID Allergies NKA Social History Smoking Status - 11/09/2017 Current every day smoker Alcohol - High Risk, 11/25/2018 Use: Current. Type: Liquor. Frequency: 3-5 times per week. Previous treatment: None. Has alcohol use interfered with work or home life: Yes. Do you ever drink more than intended: Yes. Has anyone beenhurt or at risk by your drinking: No. Ready to change: Yes. Concerns about alcohol use in household: No., 01/12/2023 Home/Environment Self Primary Senior [employer]:., 09/06/2018 Nutrition/Health Caffeine intake amount: Pop occasional., 09/06/2018 Substance Abuse - High Risk, 11/25/2018 Use: Past. Type: Heroin., 09/06/2018 Tobacco - High Risk, 11/25/2018 Nicotine Use: 10 or more cigarettes (1/2 pack or more)/day in last 30 days., 01/12/2023 Family History Developmental delay: Mother. Heart disease: Father. Hypothyroid: Brother. Immunizations No qualifying data available. Code Status Code Status - Ordered -- 03/15/23 15:35:00 EST, Full Code, Constant Order Digitally Signed by MARIELY WAGNER MD on 03/15/2023 05:22 PM [id number] Note ORIGINAL EXAMINATION: CT OF THE ABDOMEN AND PELVIS WITH CONTRAST 03/15/2023 2:43 pm TECHNIQUE: CT of the abdomen and pelvis was performed with the administration of intravenous contrast. Multiplanar reformatted images are provided for review. Automated exposure control, iterative reconstruction, and/or weight based adjustment of the mA/kV was utilized to reduce the radiation dose to as low as reasonably achievable. COMPARISON: January 19, 2018 HISTORY: ORDERING SYSTEM PROVIDED HISTORY: Reason for Exam: pt states no abdominal complaints, was supposed to receive imaging of liver earlier today but was a rapid response as outpt, hx alcohol abuse Supposed to obtain imaging of his liver earlier today was rapid and here FINDINGS: Minor degenerative changes are noted in the spine. 3 mm juxtapleural right middle lobe nodule seen. The lung bases are otherwise unremarkable. A subcentimeter cyst is noted at the dome of the liver. The liver shows diffuse fatty infiltration. The liver surface is not particularly nodular. A focal liver lesion is not evident. Spleen, adrenal glands are unremarkable. Pancreatic parenchymal atrophy is present with prominent ductal dilatation throughout the pancreas, with innumerable dystrophic calcifications. These findings are most compatible with prominent chronic pancreatitis, and the findings are very similar to the previous study. No definite kidney abnormality is visible. No adenopathy, free air or free fluid is visible. The urinary bladder is distended but shows no focal lesion. No GI tract abnormality is visible. A small fat containing umbilical hernia is evident. No additional contributory finding. IMPRESSION: 1. Fatty liver. 2. Cirrhotic morphology is not identified. 3. Extremely prominent chronic pancreatitis. 4. No acute abnormality seen. RECOMMENDATIONS: 3 mm right solid pulmonary nodule. Per Fleischner Society Guidelines, no routine follow-up imaging is recommended. These guidelines do not apply to immunocompromised patients and patients with cancer. Follow up in patients with significant comorbidities as clinically warranted. For lung cancer screening, adhere to Lung-RADS guidelines. Reference: Radiology. 2017; 284(1):228-43. Interpreted by: Denys Zuñiga MD Preliminary Report By: Denys Zuñiga MD Electronically signed By Denys Zuñiga MD Dictated Date: 03/15/2023 2:50:56 PM Prelim Date: 03/15/2023 3:04:31 PM Sign Date: 03/15/2023 3:04:31 PM Ordering Provider: [facility]02-05-2024 Note ORIGINAL HISTORY: Confusion, drinking COMPARISON: 13 May 2022 TECHNIQUE: Routine non-contrast head CT with sagittal and coronal reconstructions This exam was performed according to our departmental dose optimization program, and includes the following measures where applicable: automated exposure control, adjustment of the mAs and/or kVp according to patient size and/or exam, and an iterative reconstruction algorithm. FINDINGS: There are small to moderate areas of encephalomalacia in the left frontal and occipital lobes and at the right frontoparietal junction. The ventricles and sulci are otherwise mildly to moderately enlarged. There are no abnormal intra or extra-axial fluid collections. There is mild irregular decreased attenuation in the cerebral white matter. The calvaria and the bones of the base of the skull are intact. 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 Otherwise no significant change. Interpreted by: Jamari Love MD Preliminary Report By: Jamari Love MD Electronically signed By Jamari Love MD Dictated Date: 03/15/2023 2:36:08 PM Prelim Date: 03/15/2023 2:37:44 PM Sign Date: 03/15/2023 2:37:44 PM Ordering Provider: [facility]02-05-2024 Evaluation + Plan note Extracted from: Title:History and Physical Author:ENRICO WAGNER MD Date:03/15/23 Altered mental status Assessment 1. Altered mental status 2. Hypotension 3. Lactic acidosis 4. Alcohol dependence with probable withdrawal 5. Abnormal CT brain concerning for worsening frontal CVA 6. Insulin-dependent diabetes Plan 1. CT brain reviewed given concern for worsening CVA we will go ahead and order MRI of the brain without contrast. Unsure if his pacemaker is MRI compatible. May benefit from neurology consultation. Continue IV hydration. Hold Norvasc and metoprolol. Check ammonia level. DVT prophylaxis. Insulin regimen with home basal insulin sliding scale. PT OT. Alcohol withdrawal protocol. This document was transcribed using a voice recognition software and may contain typographical errors. Orders: insulin lispro (HumaLOG), Start: 03/15/23 17:00:00 EST, Give 0-10 units/dose, Subcutaneous, TIDAC, 03/15/23 15:58:00 EST Sodium Chloride 0.9% intravenous solution 1,000 mL, Start: 03/15/23 15:58:00 EST, Rate: 100 mL/hr, 03/15/23 15:58:00 EST Bed Request - Admit Blood Glucose Monitoring Bedside PRN Blood Glucose Monitoring POC Future Appointments Appointment Date:04/12/2023 01:30:00 PM Scheduled Provider: Location:[facility] Appointment Type:MEDS - Diabetic Individual Visit Future Scheduled Tests Laboratory* Renin, Plasma 01/02/23 * Ferritin 01/02/23 * Folate Level 01/02/23 * Lactate Dehydrogenase 01/02/23 * Prostate Specific Antigen 07/14/23 * Thyroid Stimulating Hormone 01/02/23 * Vitamin B12 Level 01/02/23 * A1C Hemoglobin 01/02/23 * A1C Hemoglobin 07/14/23 * Complete Blood Count 01/02/23 * Complete Blood Count 07/14/23 * Lipid Profile 07/14/23 * Albumin/Creatinine Ratio, Random Urine 07/02/22 * Albumin/Creatinine Ratio, Random Urine 07/14/23 * PTH, Intact 01/02/23 * PTH, Intact 07/14/23 * Reticulocytes - Panel 01/02/23 * Vitamin D Level 01/02/23 * Vitamin D Level 07/14/23 * Complete Metabolic Panel 01/02/23 * Complete Metabolic Panel 07/14/23 * TIBC 01/02/23 Radiology* US Elastography Liver w/ABD Complete 03/05/23 [facility] 02-05-2024 NoteSINUS RHYTHM ATRIAL PREMATURE COMPLEX RIGHT BUNDLE BRANCH BLOCK Electronic Signature: SAMY RUELAS MD 03/15/2023 11:33:28[facility] 02-05-2024 Note ORIGINAL EXAMINATION: ONE XRAY VIEW OF THE CHEST03/15/2023 11:27 am COMPARISON: 05/02/2021 HISTORY: ORDERING SYSTEM PROVIDED HISTORY: Reason for Exam: pain/fever; FINDINGS: 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 There is median sternotomy wires and aortic valvular prosthesis. Right axillary surgical clips are noted. No pneumothorax or pleural effusion. The cardiac silhouette is unchanged. Mild aortic atherosclerosis. There is slightly shallow depth of inspiration with mid and lower lung airspace opacities. No acute osseous abnormality. IMPRESSION: Bilateral mid and lower lung airspace opacities are nonspecific and could be due to atelectasis or infection. Interpreted by: Conrado Donahue DO Preliminary Report By: Conrado Donahue DO Electronically signed By Conrado Donahue DO Dictated Date: 03/15/2023 11:31:57 AM Prelim Date: 03/15/2023 11:32:58 AM Sign Date: 03/15/2023 11:32:58 AM Ordering Provider: [facility]09-24-2023 Discharge summary Author Vinh Lomeli [facility] November 01, 2022 10:56pm Note Date/Time November 01, 2022 8:48pm [facility] Medical Records Department [address] [place] [address] Emergency Department Summary 11/01/22 MR#: [id number] Acct: [id number] Name: ANALILIA MELENDREZ Rep #:[id number] : 1960 62 From: Vinh Lomeli MD PCP: ALAN Chahal Sta tus:REG ER Location: ED HPI HPI - GI History of Present Illness Chief Complaint: Abd Pain Detail of Chief Complaint: Nausea and vomiting for 5 days. Informant: patient Abdominal Pain/Flank Pain Onset: Days Context: Gradual Onset Timing: Intermittent Nausea/Vomiting/Emesis GI Symptom: Positive for Nausea and Vomiting Onset: Days Severity: Mild Diarrhea/Melena/Hematochezia GI Symptom: Positive for Hematochezia; Negative for Diarrhea or Melena Onset: Today Severity: Mild Associated Symptoms Associated Symptoms: Negative for Dysuria, Frequency, Hematuria or Urgency Narrative Narrative: 62-year-old male history of aortic valve, valve, diabetes and chronic kidney disease. States he had nausea and vomiting for 5 days. He has had small amountof bright red blood per rectum. He is going to see a GI doctor at [facility] it will take several weeks to get in with him. He is on no blood thinners. Currently denies any abdominal pain. He does smoke daily and drinks 2 alcoholicbeverages per day. Prior similar symptoms: No Recent Illness/Hospitalization: No PFSH PFSH Medical History Acute dehydration Acute hypokalemia Admitted to alcohol detoxification center Adrenal nodule Alcohol dependence Alcohol withdrawal Alcoholism Alcoholism Aortic aneurysm Ascending aortic dissection (~2005) Cardiac pacemaker in situ (~06/2016) Desire for detoxification Diabetes mellitus, type II Essential hypertension ETOH abuse Hiatal hernia History of diabetes mellitus HTN (hypertension) Hx of hypercholesterolemia Left carotid bruit Non-sustained ventricular tachycardia Pacemaker Pleuritic chest pain Pure hypercholesterolemia Right bundle branch block (RBBB) Shortness of breath Sick sinus syndrome Smoker Substance abuse SVT (supraventricular tachycardia) Thoracic aortic aneurysm Tobacco use Home Medications omeprazole 40 mg capsule,delayed release 40 mg PO DAILY reflux 06/10/18 [History Last Taken 11/11/21] metformin 500 mg tablet 500 mg PO DAILY diabetes 01/21/19 [History Last Taken 11/11/21] amlodipine 5 mg tablet 5 mg PO DAILY HEART 10/17/20 [History Last Taken 11/11/21] atorvastatin 10 mg tablet 10 mg PO DAILY CHOLESTEROL 10/17/20 [History Last Taken 11/11/21] hydralazine 25 mg tablet 25 mg PO TID BP 10/17/20 [History Last Taken 11/11/21] hydrochlorothiazide 12.5 mg tablet 12.5 mg PO DAILY BP 10/17/20 [History Last Taken 11/11/21] ramipril 10 mg capsule 10 mg PO BID BP 10/17/20 [History Last Taken 11/11/21] dapagliflozin propanediol 10 mg tablet (Farxiga) 10 mg PO DAILY DIABETES 09/30/21 [History Last Taken 11/11/21] gabapentin 300 mg capsule 300 mg PO Q8H PRN PRN neruropathic pain #30 caps 11/08/21 [Rx Last Taken 11/11/21] multivitamin 1 tab PO DAILY supplement 11/11/21 [History Last Taken 11/10/21] potassium chloride 10 mEq tablet,extended release(part/cryst) 20 meq PO DAILY supplement 11/11/21 [History Last Taken Unknown] insulin detemir U-100 100 unit/mL (3 mL) subcutaneous pen 8 unit (0.08 mL) subcut DAILY DM #3 mL 02/04/22 [Rx Last Taken 11/11/21] insulin lispro 100 unit/mL subcutaneous pen (Humalog KwikPen (U-100) Insulin) 5 unit subcut TIDAC dm 03/21/22 [History Last Taken Unknown] potassium chloride 10 mEq capsule,extended release 40 meq (4 x 10 mEq) PO DAILY 2 days #8 caps 07/20/22 [Rx Last Taken Unknown] metoprolol succinate 50 mg tablet,extended release 24 hr 50 mg PO BID #60 tabs 10/15/22 [Rx Last Taken Unknown] ondansetron 4 mg disintegrating tablet 4 mg PO Q6H PRN nausea and vomiting #10 tabs 11/01/22 [Rx Last Taken Unknown] Allergy/AdvReac Type Severity Reaction Status Date / Time No Known Allergies Allergy Verified 11/01/22 20:01 Family History Father CAD (coronary artery disease) Mother Dementia Surgical History H/O aortic valve replacement H/O cardiac catheterization History of aortic aneurysm repair (~2017) History of aortic valve replacement with bioprosthetic valve (~2017) History of cataract surgery History of hernia repair Social History Smoking Status: Current every day smoker tobacco type: cigarettes alcohol intake: current alcohol intake frequency: 0-2 drinks per day details: Reports currently ~ 2 tall boys daily. substance use type: former substance user caffeine: Yes Type: coffee Number of servings: 3 ROS ROS ED ROS Narrative Nausea and vomiting. Small amount of blood per rectum. Review of Systems ROS Unobtainable: Denies due to encephalopathy Constitutional Constitutional ED: Denies chills or fever(s) ENT ENT ED: Denies ear pain Cardiovascular Cardiovascular: Denies chest pain or palpitations Respiratory/Chest Respiratory/Chest: Denies cough Gastrointestinal Gastrointestinal: Reports nausea and vomiting; Denies abdominal pain, constipation, diarrhea or melena Genitourinary Genitourinary ED: Denies dysuria or hematuria Musculoskeletal Musculoskeletal: Denies arthralgias Integumentary Denies abscess or Abrasions Neurologic Neurologic: Denies headache(s) Psychiatric Psychiatric: Denies anxiety or depression Endocrine Endocrinology: Denies polydipsia Hematologic/Lymphatic Hematologic/Lymphatic: Denies easy bleeding or easy bruising Allergic/Immunologic Allergic/Immunologic ED: Denies mouth swelling, tongue swelling or urticaria EXAM Physical Exam Narrative Exam Narrative: 62-year-old male vital signs EENT exam mild dry mucous members. Neck nontender. Lungs clear. Heart regular rhythm stock ejection murmur. History of aortic valve. Abdomen soft, nontender, nondistended normal bowel sounds no peritoneal signs. Moving all 4 extremities. Calves are nontender without edema or cords. Neurologically is awake alert with no focal motor deficits.. CT show a hybrid labs tension with a blood pressure 95/69. He is afebrile. He does not look septic or toxic. Const Vital Signs: 11/01/22 20:01 11/01/22 22:47 Temperature 98.2 F Temperature Source Oral Pulse Rate 82 74 Respiratory Rate 18 16 Blood Pressure 95/69 119/73 Blood Pressure Mean 77 88 Pulse Ox 96 98 Oxygen Delivery Method Room Air Room Air Positive well nourished and well developed; Negative for obese, cachectic, contractures or unkempt General Appearance ED: well developed and NAD; Negative for unkempt, cachectic, contractures or pallor Nutritional Appearance: Negative for cachectic or obese HEENT Reports dry mucous membranes normocephalic and atraumatic; Negative for trauma or tenderness Mouth ED: Yes dry mucous membranes Mouth: dry mucous membranes Eyes PERRL and EOMs intact bilaterally General Eye ED: Negative for pale conjunctiva or scleral icterus Neck no lymphadenopathy, supple and no JVD General: Negative for tenderness Carotids: Negative for other Lymph Lymphatic: Negative for other Resp normal respiratory effort and clear to auscultation bilaterally Effort and Inspection: Negative for respiratory distress Auscultation: Negative for rales, rhonchi or wheezes Cardio regular rate, regular rhythm, S1 normal heart sound and S2 normal heart sound GI non-tender, non-distended and no masses Auscultation: normoactive bowel sounds Palpation: soft; Negative for tender, guarding, mass, pulsatile mass or rebound tenderness present Back/Spine no CVA tenderness General Back: Negative for CVA tenderness Cervical Spine: Negative for cervical spine tenderness Thoracic Spine / Upper Back: Negative for thoracic spinal tenderness Lumbar Spine / Lower Back: Negative for lumbar spinal tenderness Coccyx: Negative for other Extremity full ROM General Extremety ED: Negative for edema or tenderness General Extremity: Negative for edema Neuro CN's II-XII intact bilaterally and moves all extremities Sensorium / Orientation: alert, oriented to person, oriented to place and oriented to time; Negative for orientation impaired, confused or lethargic Motor Exam: strength 5/5 throughout Psych mental status grossly normal and thought process normal Appearance: Negative for unkempt Attitude: No agitated Mood & Affect: Negative for depressed, anxious or tearful Skin no wounds General Skin Exam: Negative for jaundice or pallor Lesions: no lesions Rashes: no rashes Trauma: Negative for abrasion Nails: Negative for discolored MDM MDM MDM Narrative Medical decision making narrative: 62-year-old male with nausea and vomiting for days. Presents hypotensive most likely from dehydration. Treated with IV fluids. Zofran for nausea. Screeninglabs are being obtained. His abdomen is benign. Repeat exam patient is doing much better at 1045. Current blood pressure is 119/73. Abdomen is benign. Patient already has appointment to see a GI specialist at [place]. He will be discharged home with [facility]. Lab Data Attestation: I reviewed the patient's lab results. Lab results narrative: CBC unremarkable. White count of 6. H&H of 14.1 and 41. Platelets 151. Electrolytes show potassium 3.1. That would go along with his nausea and vomiting. Anion gap of 9. BUN and creatinine of 5 and 1. Glucose 205. Liver enzymes are elevated with an AST of 434 and ALT of 189 and an alk phos of 196. Total bilirubin is normal. Patient has had elevated liver enzymes before. Lipase is normal at less than 10. Labs: Laboratory Results - last 24 hr 11/01/22 20:56 WBC 6.5 RBC 4.33 L Hgb 14.1 Hct 41.9 MCV 96.8 H MCH 32.6 H MCHC 33.7 RDW Std Deviation 45.1 H RDW Coeff of Kalpana 12.5 Plt Count 151 MPV 10.7 Immature Gran % (Auto) 0.500 Neut % (Auto) 67.9 Lymph % (Auto) 21.5 Erath % (Auto) 7.9 Eos % (Auto) 1.1 Baso % (Auto) 1.1 H Absolute Neuts (auto) 4.4 Absolute Lymphs (auto) 1.39 Nucleated RBC % 0 Sodium 141 Potassium 3.1 L Chloride 101 Carbon Dioxide 31.0 Anion Gap 9 BUN 5 L Creatinine 1.01 Estim Creat Clear Calc 70.71 Est GFR (MDRD) Af Amer 97 Est GFR (MDRD) Non-Af 80 BUN/Creatinine Ratio 5.0 L Glucose 205 H Calcium 8.5 Total Bilirubin 0.40 AST 434 H ALT 189 H Alkaline Phosphatase 196 H Total Protein 6.5 Albumin 3.0 L Globulin 3.5 Albumin/Globulin Ratio 0.9 Lipase < 10 L Discharge Plan Triage Chief Complaint: Abd Pain Other Complaint: ETOH Intox Nausea/Vomiting ED Provider: Vinh Lomeli Dx/Rx/DC Orders Clinical Impression: History of valvular heart disease, Hx of gallstones, Nausea & vomiting, Abdominal pain Instructions: ED Abdominal Pain Gallstone Poss, ED Vomiting (Adult) Prescriptions: New ondansetron 4 mg tablet,disintegrating 4 mg PO Q6H PRN (Reason: nausea and vomiting) Qty: 10 0RF No Action omeprazole 40 mg capsule,delayed release(DR/EC) 40 mg PO DAILY hydrochlorothiazide 12.5 mg tablet 12.5 mg PO DAILY atorvastatin 10 mg tablet 10 mg PO DAILY amlodipine 5 mg tablet 5 mg PO DAILY ramipril 10 mg capsule 10 mg PO BID hydralazine 25 mg tablet 25 mg PO TID metformin 500 MG tablet 500 mg PO DAILY Farxiga 10 mg Tablet 10 mg PO DAILY Hold Instructions: until you speak with your diabetic clinic or PCP. gabapentin 300 mg Capsule 300 mg PO Q8H PRN PRN (Reason: neruropathic pain) Qty: 30 0RF Rx Instructions: for neuropathy from diabetes multivitamin Tablet 1 tab PO DAILY Rx Instructions: over the counter potassium chloride 10 mEq tablet,ER particles/crystals 20 meq PO DAILY insulin detemir U-100 100 unit/mL (3 mL) Insulin Pen 8 unit SUBCUT DAILY Qty: 3 0RF insulin lispro [Humalog KwikPen Insulin] 100 unit/mL insulin pen 5 unit subcut TIDAC potassium chloride 10 mEq capsule, extended release 40 meq PO DAILY 2 Days Qty: 8 0RF metoprolol succinate 50 mg tablet extended release 24 hr 50 mg PO BID Qty: 60 11RF Primary Care Provider: Andreas Pathak VEHICLE MODIFICATION TECHNICIAN Referrals: Andreas Pathka VEHICLE MODIFICATION TECHNICIAN, VEHICLE MODIFICATION TECHNICIAN-C [Primary Care Provider] - As soon as possible Activity Restrictions/Additional Instructions: Plenty of fluids and rest. Probably suggest stopping smoking and decreasing your alcohol use. Zofran as needed for nausea. Call and follow-up with your GI doctor soon as possible. If increasing pain, fever, intractable vomiting or feeling worse. Disposition Disposition: Home, Self Care What to do if you have Problems For any increased pain, shortness of breath, bleeding, nausea or vomiting, chestpain, or any unexpected problems, contact your Primary Care Provider. Call [facility] ([phone]) or report to the closest Emergency Room. Call 911 if necessary. 11/01/222255 <Electronically signed by Vinh Lomeli MD> Esmer Signature (if applicable): CC: ALAN Pathak ~ Signed [facility] Work Phone: [phone] Hospital Discharge instructions Patient Education 10/05/2022 16:41:02 Chest Pain, Uncertain Cause Uncertain Causes of Chest Pain Chest pain can happen for a number of reasons. Sometimes the cause can't be determined. If your condition does not seem serious, and your pain does not appear to be coming from your heart, your healthcare provider may recommend watching it closely. Sometimes the signs of a serious problem take moretime to appear. Many problems not related to your heart can cause chest pain. These include: Musculoskeletal. Costochondritis is an inflammation of the tissues around the ribs that can occur from trauma or overuse injuries, or a strain of the muscles of the chest wall Respiratory. Pneumonia, collapsed lung (pneumothorax), or inflammation of the lining of the chest and lungs (pleurisy) Gastrointestinal. Esophageal reflux, heartburn, ulcers, or gallbladder disease Anxiety and panic disorders Nerve compression and inflammation Rare miscellaneous problems such as aortic aneurysm (a swelling of the large artery coming out of the heart) or pulmonary embolism (a blood clot in the lungs) Home care After your visit, follow these recommendations: Rest today and avoid strenuous activity. Take any prescribed medicine as directed. Be aware of any recurrent chest pain and notice any changes Follow-up care Follow up with your healthcare provider if you do not start to feel better within 24 hours, or as advised. Call 911 Call 911 if any of these occur: A change in the type of pain: if it feels different, becomes more severe, lasts longer, or begins to spread into your shoulder, arm, neck, jaw or back Shortness of breath or increased pain with breathing Weakness, dizziness, or fainting Rapid heart beat Crushing sensation in your chest When to seek medical advice Call your healthcare provider right away if any of the following occur: Cough with dark colored sputum (phlegm) or blood Fever of 100.4 F (38 C) or higher, or as directed by your healthcare provider Swelling, pain or redness in one leg [id number] [employer].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 Complaint: ETOH Intox Other Complaint: Nausea/Vomiting/Diarrhea ED Provider: Vinh Lomeli Dx/Rx/DC Orders Clinical Impression: Alcohol abuse, Admitted to alcohol detoxification center, Acute dehydration, History of diabetes mellitus Primary Care Provider: Andreas Pathak VEHICLE MODIFICATION TECHNICIAN What to do if you have Problems For any increased pain, shortness of breath, bleeding, nausea or vomiting, chestpain, or any unexpected problems, contact your Primary Care Provider. Call [facility] ([phone]) or report to the closest Emergency Room. Call 911 if necessary. 03/21/222209 <Electronically signed by Vinh Lomeli MD> Cosigner Signature (if applicable): CC: ALAN Pathak ~ Signed [facility] Work Phone: 1(684) 910-799002-11-2023 History and physical note Author Dr. Aguayo [facility] March 21, 2022 6:31pm Note Date/Time March 21, 2022 6:06pm [facility] Medical Records Department [address] [place] [address] H&P Exam - Hospitalist 03/21/22 1831 MR#: [id number] Acct: [id number] Name: ANALILIA MELENDREZ Rep #:[id number] : 1960 61 From: Iman Aguayo MD PCP: ALAN Chahal tus:ADM IN Location: [place] [address]-1 HPI - General General Date of Admission: 03/21/22 Date of Service: 03/21/22 Chief Complaint: Acute EtOH withdrawal HPI Narrative The patient is a 61 y/o M w/ PMHx: Chronic macrocytic anemia, Diabetes mellitus type II, Hx sick sinus syndrome s/p pacemaker placement, Hx Ascending aortic dissection s/p repair, Valvular heart disease s/p AVR with bioprosthetic valve, HTN, HLD, GERD, EtOH abuse (Prior reported 3-4 Tall Boys daily->currently had transitioned down to 2 daily), admitted for acute EtOH detoxification 11/05/21, 11/11/21 and most recently 02/01/22 who now re-presents to the [facility] ED on 03/21/22 with history of unfortunately started drinking again since his most recent detoxification discharge at the end of January with last drink the day prior, again tall boys usually 2/day now with onset since then nausea, emesis and loosestools with no associated specific abdominal pain but in addition inability to maintain appropriate hydration, tremors, tactile disturbances, fatigue and restlessness prompting eventual ED evaluation. He notes that he discussed his status with his daughter who strongly encouraged him to present to the ED for treatment again which he finally decided to do. Work-up in the ED included T97.5, heart rate 119, BP 181/68, respiratory rate 18, 98% on room air, CBC withWC 6, hemoglobin 13.2, platelet 144 with lymphopenia, pending BMP upon requestedevaluation, pending ethyl alcohol upon requested evaluation, POC glucose 337. [facility] Medical History Acute hypokalemia Adrenal nodule Alcohol dependence Alcoholism Alcoholism Aortic aneurysm Ascending aortic dissection (~2005) Cardiac pacemaker in situ (~06/2016) Desire for detoxification Diabetes mellitus, type II Essential hypertension ETOH abuse Hiatal hernia History of diabetes mellitus HTN (hypertension) Hx of hypercholesterolemia Left carotid bruit Non-sustained ventricular tachycardia Pacemaker Pleuritic chest pain Pure hypercholesterolemia Right bundle branch block (RBBB) Shortness of breath Sick sinus syndrome Smoker Stroke Substance abuse SVT (supraventricular tachycardia) Thoracic aortic aneurysm Tobacco use Home Medications omeprazole 40 mg capsule,delayed release 40 mg PO DAILY reflux 06/10/18 [History Last Taken 11/11/21] metformin 500 mg tablet 500 mg PO DAILY diabetes 01/21/19 [History Last Taken 11/11/21] amlodipine 5 mg tablet 5 mg PO DAILY HEART 10/17/20 [History Last Taken 11/11/21] atorvastatin 10 mg tablet 10 mg PO DAILY CHOLESTEROL 10/17/20 [History Last Taken 11/11/21] hydralazine 25 mg tablet 25 mg PO TID BP 10/17/20 [History Last Taken 11/11/21] hydrochlorothiazide 12.5 mg tablet 12.5 mg PO DAILY BP 10/17/20 [History Last Taken 11/11/21] ramipril 10 mg capsule 10 mg PO BID BP 10/17/20 [History Last Taken 11/11/21] dapagliflozin 10 mg tablet (Farxiga) 10 mg PO DAILY DIABETES 09/30/21 [History Last Taken 11/11/21] gabapentin 300 mg capsule 300 mg PO Q8H PRN PRN neruropathic pain #30 caps 11/08/21 [Rx Last Taken 11/11/21] multivitamin 1 tab PO DAILY supplement 11/11/21 [History Last Taken 11/10/21] potassium chloride 10 mEq tablet,extended release(part/cryst) 20 meq PO DAILY supplement 11/11/21 [History Last Taken Unknown] insulin detemir U-100 100 unit/mL (3 mL) subcutaneous pen 8 unit (0.08 mL) subcut DAILY DM #3 mL 02/04/22 [Rx Last Taken 11/11/21] insulin lispro 100 unit/mL subcutaneous pen (Humalog KwikPen (U-100) Insulin) 5 unit subcut TIDAC dm 03/21/22 [History Last Taken Unknown] Allergy/AdvReac Type Severity Reaction Status Date / Time No Known Allergies Allergy Verified 03/21/22 17:43 Family History Father CAD (coronary artery disease) Mother Dementia Surgical History H/O aortic valve replacement H/O cardiac catheterization History of aortic aneurysm repair (~2017) History of aortic valve replacement with bioprosthetic valve (~2017) History of cataract surgery History of hernia repair Social History (Updated 03/21/22 @ 18:[address] Iman Aguayo MD) Smoking Status: Current every day smoker tobacco type: cigarettes alcohol intake: current alcohol intake frequency: 0-2 drinks per day details: Reports currently ~ 2 tall boys daily. substance use type: former substance user caffeine: Yes Type: coffee Number of servings: 3 ROS ROS Narrative Admission Review of Systems: CONSTITUTIONAL: No weight loss, fever, chills, + weakness or fatigue. HEENT: Eyes: No visual loss, blurred vision, double vision or yellow sclerae. Ears, Nose, Throat: No hearing loss, sneezing, congestion, runny nose or sore throat. SKIN: No rash or itching, lesions, wounds. CARDIOVASCULAR: No chest pain, palpitations, edema, orthopnea, syncopal events. RESPIRATORY: No shortness of breath, cough or sputum, wheezing, hemoptysis. GASTROINTESTINAL: + anorexia, nausea, vomiting, loose stools, No abdominal pain,melena, BRBPR. GENITOURINARY: No dysuria, frequency, urgency or retention. NEUROLOGICAL: + Tactile disturbances, mild tremors, No headache, dizziness, syncope, paralysis, ataxia, numbness or tingling in the extremities, focal weakness, change in bowel or bladder control, seizure. MUSCULOSKELETAL: + muscle, back pain, joint pain or stiffness. HEMATOLOGIC: + anemia, bleeding or bruising. LYMPHATICS: No enlarged nodes. No history of splenectomy. PSYCHIATRIC: + history of depression or anxiety. ENDOCRINOLOGIC: + reports of sweating, No cold or heat intolerance. No polyuria or polydipsia. ALLERGIES: No history of asthma, hives, eczema or rhinitis. Vital Signs Vital Signs Vital Signs: 03/21/22 17:43 Temperature 97.5 F L Temperature Source Temporal Pulse Rate 119 H Respiratory Rate 18 Blood Pressure 181/68 H Blood Pressure Mean 105 Pulse Ox 98 Oxygen Delivery Method Room Air Weight Weight: 150 lb Body Mass Index (BMI) 20.9 Physical Exam Narrative Physical Examination: General: Awake, alert, oriented x 3 and cooperative, seated upright in ED bed, fatigued, mild tremors noted. Skin: Normal color, normal turgor, no icterus, no cyanosis except occasional staged ecchymoses. HEENT: AT/NC, EOMI, PERRLA, dry MM, no carotid bruits or JVD noted. Lungs: Diminished, greater bases, appropriate effort, no rales, ronchi or wheezing. Heart: Mildly tachycardic with regular rhythm; no gallop, rub audible, + SM. Abdomen: Soft, NTTP, ND, hyperactive BS, + HM. Extremities: No cyanosis, clubbing, or edema. Neurological: Patient awake, alert, oriented as noted, cognitive function appears baseline intact; pupils equally reactive to light and accommodation, cranial nerves II-XII grossly normal, moving all 4 extremities, no focal deficits, strength mildly to moderately global decrease secondary to acute presentation, mildly tremulous. Psychiatric: Affect appears mildly tremulous, flat affect, reports feeling likean idiot for starting to drink again, improves with discussions. Results Lab / Micro Data Result Diagrams: 03/21/22 18:00 03/21/22 18:00 Assessment & Plan Assessment/Plan (1) Alcohol withdrawal: PLAN: Plan The patient is a 61 y/o M w/ PMHx: Chronic macrocytic anemia, Diabetes mellitus type II, Hx sick sinus syndrome s/p pacemaker placement, Hx Ascending aortic dissection s/p repair, Valvular heart disease s/p AVR with bioprosthetic valve, HTN, HLD, GERD, EtOH abuse, admitted for acute EtOH detoxification 11/05/21, 11/11/21 and most recently 02/01/22 who now re-presents to the [facility] ED on 03/21/22 with history of unfortunately started drinking again since his most recent detoxification discharge at the end of January with last drink the day prior with onset of acute alcohol withdrawal symptoms. #1.? Acute EtOH Withdrawal with associated nausea, emesis, loose stools, similarto prior acute withdrawal presentation: Will admit to [facility], currently only CBC hasreturned upon evaluation of patient, BMP/hepatic profile pending but will ascertain any renal insufficiency or electrolyte disturbances once results givenGI losses, will initiate and continue on protocol with taper course of Phenobarbital, scheduled gabapentin for seizure prophylaxis, as needed Catapres,Bentyl, Vistaril, IV fluids, IV antiemetics, Tylenol as needed for pain. Will consult Case management for assistance for transition to next level of rehabilitation care. Mag, phos pending. Maintain on CIWA protocol concurrently. If symptoms do not improve with acute treatment EtOH withdrawal as they have prior would obtain stool enteric and cdiff to be cautious although symptoms onlystarted when his withdrawal started, again similar to last admission. #2.? Valvular heart disease: Patient initially status post mechanical valve replacement eventually transitioned to bioprosthetic AV replacement, 04/02/2020 echocardiogram with EF 70%, severe concentric LVH, trivial MVI, mild TVI, stableappearing bioprosthetic AV apparatus, RVSP 19 mmHg, transmitral Doppler flow suggestive of impaired relaxation LV, ICD/pacer leads identified. #3.? Diabetes mellitus type II with Hyperglycemia: Admission POC glucose 337. Will hold oral home regimen, continue home insulin regimen with 1/2 dose if unable to tolerate oral initially, will start with clears and once improving with resolved nausea and emesis will transition to ADA diet, accu checks w/ ISS. #4.? Chronic macrocytic anemia: Admission hemoglobin 13.2, baseline hemoglobin vacillates between 12-14, continue vitamin B12/thiamine/folic acid supplementation, trend CBC as needed. #5. History ascending aortic dissection: Status post repair, most recent CT noted 09/08/2019 with expected appearance of repaired normal diameter of the aorta. #6.? Hypertension: Given unclear renal status will hold on immediate addition ACEI/HCTZ, will continue norvasc and hydralazine until function obtained, PRN IVhydralazine as needed. #7.? Hyperlipidemia: We will continue statin therapy. #8.? Hx Sick Sinus Syndrome: s/p pacemaker placement. #9.? Tobacco Abuse: Encouraged cessation, inpatient consultation per RT, NR if desired. #10.? GERD: Will maintain on BID PPI and carafate given recent bouts N/V, PRN mylanta. #13.? DVT prophylaxis: Encourage ambulation, with EtOH detoxification admission would consider risk low. Admission Evaluation Time spent evaluating chart, patient history, patient evaluation, care planning and discussion with specialists: 75 minutes. Charges/Coding Visit Charges Inpatient E&M: 61835 Init Hosp L3 03/21/22 1831 <Electronically signed by Iman Aguayo MD> Cosigner Signature (if applicable): CC: ALAN Pathak; Dr. Iman Aguayo MD~ Signed [facility] Work Phone: 1(268) 935-639012-28-2022 Hospital Discharge instructions Additional Instructions Follow-up with 180 as directed [facility]: [facility] Phone: 1(628) 545-164103-25-2022 Hospital Discharge instructions Patient Education 05/02/2021 15:37:36 Diabetes with High Blood Sugar Diabetes with High Blood Sugar You have been treated for high blood sugar (hyperglycemia). This may be because of an infection or other illness. Or it may be from eating too many sweets or starches. Or it may be from not taking enough insulin or other diabetes medicine. Home care Check your blood sugar level at least 2 times a day. Write it down the results. Do this before breakfast and before dinner. If you take insulin, also write down your routine insulin dose. Note any other doses you needed based on your sliding scale or as advised by your healthcare provider. Do this for the next 3 to 5 days. High blood sugar may cause symptoms that you can learn to spot. These include: Peeing often Thirst Headache Breath that smells fruity Nausea or vomiting Belly pain If you have symptoms of high blood sugar, use a blood or urine test to find out what your blood sugar level is. If it is above your usual range, use the sliding scale regular insulin dose from your healthcare provider. Call your provider for advice if you were not given a range for your insulin dose. If your blood sugar is over 240 mg/dL, check your urine for ketones. Follow-up care Follow up with your healthcare provider, or as advised. You may need to meet with your provider in the next week. You will likely look at your blood sugar records together. You may need to change your dose of insulin or other diabetes medicine. When to seek medical advice Call your healthcare provider right away if these occur: Symptoms of high blood sugar that don't get better with the treatment your provider advised. This is especially true if you also have ketones in your urine. Blood sugar over 300 mg/dl. If you can t reach your healthcare provider, go to a hospital emergencyroom or urgent care center. Call 911 Call 911 if you have any of the following: Confusion Dizziness, lightheadedness, or loss of consciousness Shortness of breath Chest pain Weakness of an arm, leg, or one side of the face Sudden trouble with speech or vision [id number] [employer] [place] [address]. All rights reserved. This information is not intended as a substitute for professional medical care. Always follow yourhealthcare professional's instructions. Follow Up Care 05/02/2021 12:58:19 With:ANDREAS PATHAK Address: [address] [place] [address] [place] [address]- Business (1) When:2-4 days Comments:Return to ED if symptoms worsen [facility] Consult note Author Carla Cuba [facility] April 27, 2023 11:52am Note Date/Time April 27, 2023 11: 52am [facility] Medical Records Department [address] [place] [id number] Counseling Note - Pharmacy 04/27/23 1151 MR#: [id number] Acct: [id number] Name: ANALILIA MELENDREZ Rep #:[id number] : 1960 62 From: Carla Cuba PCP: ALAN Chahal tus:ADM IN Y Location: [facility] ON214-5 Pharmacy SD Med Reconciliation Pharmacy Service has performed discharge medication reconciliation for this patient. The patient's discharge medication list was reviewed for discrepancies and discrepancies were resolved. Medications at Discharge Home Medications omeprazole 40 mg capsule,delayed release 40 mg PO DAILY ACID REFLUX 06/10/18 amlodipine 5 mg tablet 5 mg PO DAILY BLOOD PRESSURE 10/17/20 atorvastatin 10 mg tablet 10 mg PO DAILY CHOLESTEROL 10/17/20 hydralazine 25 mg tablet 25 mg PO TID BP 10/17/20 hydrochlorothiazide 12.5 mg tablet 12.5 mg PO DAILY BLOOD PRESSURE 10/17/20 ramipril 10 mg capsule 10 mg PO BID BLOOD PRESSURE 10/17/20 dapagliflozin propanediol 10 mg tablet (Farxiga) 10 mg PO DAILY DIABETES 09/30/21 multivitamin 1 tab PO DAILY SUPPLEMENT 11/11/21 potassium chloride 10 mEq tablet,extended release(part/cryst) 20 meq PO DAILY SUPPLEMENT 11/11/21 metoprolol succinate 50 mg tablet,extended release 24 hr 50 mg PO BID BLOOD PRESSURE #60 tabs 10/15/22 gabapentin 300 mg capsule 300 mg PO DAILY NEUROPATHY 11/14/22 insulin glargine 100 unit/mL (3 mL) subcutaneous pen (Lantus Solostar U-100 Insulin) 10 unit subcut 1200 DIABETES 11/14/22 metformin 500 mg tablet,extended release 24 hr 500 mg PO BID DIABETES 11/15/22 famotidine 40 mg tablet 40 mg PO DAILY ACID REFLUX 04/20/23 04/27/23 1152 <Electronically signed by Carla Cuba> Date _ Carla Cuba Cosigner Signature (if applicable): Date CC: ~ Signed [facility] Work Phone: Discharge summary Author Dr. Dutton [facility] March 24, 2022 11:54am Note Date/Time March 24, 2022 11:52am [facility] Medical Records Department [address] [place] [address] Instructions for Home/Discharge Instructions 03/24/22 1152 MR#: [id number] Acct: [id number] Name: ANALILIA MELENDREZ Rep #:[id number] : 1960 61 From: Mateusz Dutton DO PCP: ALAN Chahal Sta tus:ADM IN Discharge Instructions Diet Discharge Diet: 1800 Calorie Control Diet Activity Discharge Activity: Return to Normal Activity Weight Bearing Status: Full weight bearing Follow Up Care Test Results: Test results from this visit will be discussed in further detail at your follow- up appointment, if applicable. Discharge Plan Admission Admit Date/Time: 03/21/22 18:05 Primary Reason for Your Visit: alcohol detox Attending Provider: Mateusz Dutton Primary Care Provider: Andreas Pathak NP Consulting Providers: Iman Aguayo Discharge Orders/Prescriptions Prescriptions: Continued omeprazole 40 mg capsule,delayed release(DR/EC) 40 mg PO DAILY hydrochlorothiazide 12.5 mg tablet 12.5 mg PO DAILY atorvastatin 10 mg tablet 10 mg PO DAILY amlodipine 5 mg tablet 5 mg PO DAILY ramipril 10 mg capsule 10 mg PO BID hydralazine 25 mg tablet 25 mg PO TID metformin 500 MG tablet 500 mg PO DAILY Farxiga 10 mg Tablet 10 mg PO DAILY Hold Instructions: until you speak with your diabetic clinic or PCP. gabapentin 300 mg Capsule 300 mg PO Q8H PRN PRN (Reason: neruropathic pain) Qty: 30 0RF Rx Instructions: for neuropathy from diabetes multivitamin Tablet 1 tab PO DAILY Rx Instructions: over the counter potassium chloride 10 mEq tablet,ER particles/crystals 20 meq PO DAILY insulin detemir U-100 100 unit/mL (3 mL) Insulin Pen 8 unit SUBCUT DAILY Qty: 3 0RF insulin lispro [Humalog KwikPen Insulin] 100 unit/mL insulin pen 5 unit subcut TIDAC Referrals / Follow Up: Andreas Pathak NP, VEHICLE MODIFICATION TECHNICIAN-C [Primary Care Provider] - Disposition Disposition (needs filled in before D/C Order can be placed): Home, Self Care 03/24/22 1154<Electronically signed by Mateusz Dutton DO>Mateusz Dutton DO CC: ALAN Pathak; Dr. Iman Aguayo MD ~ Signed [facility] Work Phone: Discharge summary Author Ashley Alvarado [facility] April 27, 2023 10:29am Note Date/Time April 27, 2023 10: 29am [facility] Medical Records Department [address] [place] [address] Instructions for Home/Discharge Instructions 04/27/23 1029 MR#: [id number] Acct: [id number] Name: ANALILIA MELENDREZ Rep #:[id number] : 1960 62 From: Ashley Alvarado MD PCP: ALAN Chahal Sta tus:ADM IN Discharge Instructions Diet Discharge Diet: Low fat / Low cholesterol Activity Discharge Activity: Return to Normal Activity Weight Bearing Status: Weight bearing as tolerated Dressing / Incision Call your doctor if you observe: Fever of 101 or Higher, Shortness of breath, Dizziness, Swelling in the ankles and Chest pain Follow Up Care Test Results: Test results from this visit will be discussed in further detail at your follow- up appointment, if applicable. Discharge Plan Admission Admit Date/Time: 04/20/23 15:11 Primary Reason for Your Visit: acute alcohol withdrawal Attending Provider: Ashley Alvarado Primary Care Provider: Andreas Pathak NP Consulting Providers: Lucas Frausto Instructions Patient Instructions: ED Withdrawal Alcohol Discharge Orders/Prescriptions Prescriptions: Continued omeprazole 40 mg capsule,delayed release(DR/EC) 40 mg PO DAILY hydrochlorothiazide 12.5 mg tablet 12.5 mg PO DAILY atorvastatin 10 mg tablet 10 mg PO DAILY amlodipine 5 mg tablet 5 mg PO DAILY ramipril 10 mg capsule 10 mg PO BID hydralazine 25 mg tablet 25 mg PO TID dapagliflozin propanediol [Farxiga] 10 mg Tablet 10 mg PO DAILY Hold Instructions: until you speak with your diabetic clinic or PCP. multivitamin Tablet 1 tab PO DAILY potassium chloride 10 mEq tablet,ER particles/crystals 20 meq PO DAILY Patient Comments: PT STATES THEY THINK THEY ARE ON THIS MEDICATION. insulin glargine [Lantus Solostar U-100 Insulin] 100 unit/mL (3 mL) insulin pen 10 unit subcut 1200 gabapentin 300 mg Capsule 300 mg PO DAILY Patient Comments: PT STATES THEY THINK THEY ARE ON THIS MEDICATION. metformin 500 mg tablet extended release 24 hr 500 mg PO BID Patient Comments: PT STATES THEY TAKE THIS ONCE DAILY. famotidine 40 mg tablet 40 mg PO DAILY metoprolol succinate 50 mg tablet extended release 24 hr 50 mg PO BID Qty: 60 11RF Referrals / Follow Up: Andreas Pathak NP, VEHICLE MODIFICATION TECHNICIAN-C [Primary Care Provider] - Within 1 Week Disposition Disposition (needs filled in before D/C Order can be placed): Home, Self Care 04/27/23 1029<Electronically signed by Ashley Alvarado MD>Ashley Alvarado MD CC: VEHICLE MODIFICATION TECHNICIAN-C Andreas Pathak; Dr. Lucas Frausto MD ~ Signed [facility] Work Phone: Discharge summary Author Chris Aragon [facility] Note Date/Time July 06, 2024 10:54 am [facility] Medical Records Department [address] [place] [address] Instructions for Home/Discharge Instructions 07/06/24 1037 MR#: [id number] Acct: [id number] Name: ANALILIA MELENDREZ Rep #:[id number] : 1960 63 From: Chris Emery alex RILEY PCP: ALAN Wilde Status:ADM I N Discharge Instructions Diet Discharge Diet: 8 Cup Fluid Restriction and 2000 mg Sodium Diet DC O2, CPAP, BIPAP needs Home O2 Discharge instructions: No Dressing / Incision Discharge Activity: No Restrictions Follow Up Care Test Results: Test results from this visit will be discussed in further detail at your follow- up appointment, if applicable. Discharge Plan Admission Admit Date/Time: 06/30/24 19:47 Primary Reason for Your Visit: Abdominal pain Attending Provider: Chris Aragon Primary Care Provider: Marianna Wagner NP Consulting Providers: Conrado Pro; Melonie De La Rosa; Yaneli Carbone Instructions Additional Instructions / Restrictions: We have made several medication changes for you while here. Importantly, your blood pressure was running low here so several of your blood pressure medications were discontinued. Please see below for all of your medication changes. Follow-up with the ultrasound sonographer soon to discuss further evaluation foryour aortic valve. Discharge Orders/Prescriptions Prescriptions: New furosemide 20 mg Tablet 20 mg PO DAILY 30 Days Qty: 30 2RF metoprolol succinate 25 mg Tablet Extended Release 24 Hr 12.5 mg PO DAILY 30 Days Qty: 15 2RF spironolactone 25 mg Tablet 25 mg PO DAILY 30 Days Qty: 30 2RF Continued atorvastatin 10 mg tablet 10 mg PO DAILY dapagliflozin propanediol [Farxiga] 10 mg Tablet 10 mg PO DAILY multivitamin Tablet 1 tab PO DAILY gabapentin 300 mg Capsule 300 mg PO DAILY metformin 500 mg tablet extended release 24 hr 500 mg PO BID Patient Comments: PT STATES THEY TAKE THIS ONCE DAILY. pantoprazole 40 mg tablet,delayed release (DR/EC) 40 mg PO BID Qty: 60 0RF Creon 24,000-76,000 -120,000 unit Capsule,Delayed Release(Dr/Ec) 1 cap PO TIDCM Qty: 90 1RF thiamine HCl (vitamin B1) [Vitamin B-1] 100 mg Tablet 100 mg PO DAILYCM Qty: 0 0RF L.acidoph,saliva-B.bif-S.therm 175 mg Capsule 2 cap PO BID Qty: 0 0RF folic acid 1 mg Tablet 1 mg PO DAILY@0800 Qty: 0 0RF insulin lispro [Humalog KwikPen Insulin] 100 unit/mL Insulin Pen See Protocol subcut ACHS Qty: 0 0RF Protocol: 4. Sliding Scale Insulin High-Med Dosing Condition: 150-199 mg/dl = 2 units Condition: 200-259 mg/dl = 4 units Condition: 260-324 mg/dl = 6 units Condition: 325-374 mg/dl = 8 units Condition: 375-409 mg/dl = 10 units Condition: 410-449 mg/dl = 11 units Condition: Greater than 449 call physician Protocol Text: - Use for Total Daily Dose of Insulin 56-80 units - Patient who are insulin resistant or septic HIGH MEDIUM DOSING ALGORITHM ferrous sulfate [FeroSul] 325 mg (65 mg iron) tablet 325 mg PO DAILY tramadol 50 mg tablet 50 mg PO Q8H PRN (Reason: pain) 3 Days Qty: 9 0RF Discontinued hydralazine 25 mg tablet 25 mg PO TID insulin glargine [Lantus Solostar U-100 Insulin] 100 unit/mL (3 mL) insulin pen 5 unit subcut 1200 Patient Comments: pt stated he has not taken lantus for several days furosemide 40 mg tablet 40 mg PO DAILY Qty: 30 0RF spironolactone 25 mg tablet 12.5 mg PO DAILY Qty: 30 0RF Patient Comments: Reports he hasn't started taking 06/30/2024 Rx Instructions: Hold if serum potassium more than 5.1. metoprolol tartrate 50 mg tablet 50 mg PO BID ramipril 10 mg capsule 10 mg PO DAILY Referrals / Follow Up: Marianna Wagner NP, NP-C [Primary Care Provider] - Disposition Disposition (needs filled in before D/C Order can be placed): Home, Self Care 07/06/24 1054<Electronically signed by Chris Aragon DO>Chris Aragon DO CC: VEHICLE MODIFICATION TECHNICIAN-C Marianna Wagner; Dr. Conrado Pro DO; Dr. Yaneli Carbone MD; Dr. Melonie De La Rosa DO ~ Signed [facility] Work Phone: Discharge summary Author [facility] Note Date/Time July 06, 2024 10:59 am [facility] Medical Records Department [address] [place] [id number] Discharge Summary 07/06/24 1038 MR#: [id number] Acct: [id number] Name: ANALILIA MELENDREZ Rep #:[id number] : 1960 63 From: Chris de la cruz DO PCP: ALAN Wilde Status:ADM I N Location: [place] [address] Providers Date of Admission: 06/30/24 Date of Discharge: 07/06/24 Primary Care Physician: ALAN Wilde Consultations 07/02/24 11:50 Consult: Gastroenterology Routine Consulting Provider: [facility] Reason for Consult: PKTY- LIVER DZ EMERGENT Consult: No Notified: Yes Date Notified: 07/02/24 Time Notified: 11:53 Method of Notification: Text 07/03/24 14:45 Consult: Cardiology Routine Consulting Provider: Yaneli Carbone Reason for Consult: new onset HFrEF, mod to severe bioprosthetic AV stenosis EMERGENT Consult: No Notified: Yes Date Notified: 07/03/24 Time Notified: 14:45 Method of Notification: Verbal Reason For Visit: PLEURAL EFFUSIONS AND HYPOXIA WITH WORSENING Diagnosis Discharge Diagnosis (1) Acute HFrEF (heart failure with reduced ejection fraction): Status: Acute Code(s): I50.21 - Acute systolic (congestive) heart failure (2) Abdominal ascites: Status: Acute Code(s): R18.8 - Other ascites Medications at Discharge Home Medications atorvastatin 10 mg tablet 10 mg PO DAILY CHOLESTEROL 10/17/20 dapagliflozin propanediol 10 mg tablet (Farxiga) 10 mg PO DAILY DIABETES 09/30/21 multivitamin 1 tab PO DAILY SUPPLEMENT 11/11/21 gabapentin 300 mg capsule 300 mg PO DAILY NEUROPATHY 11/14/22 metformin 500 mg tablet,extended release 24 hr 500 mg PO BID DIABETES 11/15/22 L.acidophil,salivari-Bifido bifidum-Strep thermoph 175 mg capsule 2 cap PO BID #0 caps 05/20/23 folic acid 1 mg tablet 1 mg PO DAILY@0800 supplement #0 tabs 05/20/23 insulin lispro 100 unit/mL subcutaneous pen (Humalog KwikPen (U-100) Insulin) See Protocol subcut ACHS #0 mL 05/20/23 thiamine HCl (vitamin B1) 100 mg tablet (Vitamin B-1) 100 mg PO DAILYCM vitamin #0 tabs 05/20/23 pantoprazole 40 mg tablet,delayed release 40 mg PO BID reflux #60 tabs 06/27/23 gnkmrr-qmbvlhzi-yrhszhc 24,000-76,000-120,000 unit capsule,delayed rel (Creon) 1cap PO TIDCM #90 caps 06/28/24 ferrous sulfate 325 mg (65 mg iron) tablet (FeroSul) 325 mg PO DAILY 06/30/24 furosemide 20 mg tablet 20 mg PO DAILY 30 days #30 tabs 07/06/24 metoprolol succinate 25 mg tablet,extended release 24 hr 12.5 mg (1/2 x 25 mg) PO DAILY 30 days #15 tabs 07/06/24 spironolactone 25 mg tablet 25 mg PO DAILY 30 days #30 tabs 07/06/24 tramadol 50 mg tablet 50 mg PO Q8H PRN pain 3 days #9 tabs 07/06/24 Hospital Course Operations None Procedures EKG, Paracentesis, Transthoracic echo and - (Chest x-ray, CT abdomen pelvis withIV contrast) Summary of Care Provided Minutes Spent on Discharge: 35 Hospital Course: Patient is a 63-year-old male who presented to [facility] ED on 06/30/2024 with worsening abdominal pain and distention. Hospital course as noted below. Patient discharged home in stable condition on 07/06. 1. New onset HFrEF, acute hypoxia with bilateral pleural effusions, moderate tosevere bioprosthetic aortic valve stenosis ? Cardiology followed. History of bioprosthetic valve replacement in 2016 with mechanical valve replacement prior to that. Echo 07/03 showed newly reduced EF 35 to 40% with global LV hypokinesis, severe concentric LV hypertrophy, moderateto severe bioprosthetic aortic valve stenosis. Chest x-ray on admit with cardiomegaly and moderate bilateral pleural effusions noted. BNP very elevated at 26,000. Required supplemental oxygen on admit, now weaned back to nasal cannula at rest. Per cardiology, suspect valve issue as below along with medication nonadherence are primary contributors to heart failure. Okay to treat medically at this time with plan for close outpatient follow-up for possible ALBERT/left heart cath/right heart cath. Developed mild MALIK on 07/05, IV Lasix discontinued. Will discharge home on the following regimen: Toprol 12.5 mg daily, Lasix 20 mg daily, spironolactone 25 mg daily and Farxiga 10 mg daily. Will need close outpatient follow-up with cardiology. Recommend repeat BMP in 5 to 7 days to reevaluate kidney function. 2. Abdominal ascites, chronic abdominal pain with chronic alcoholic pancreatitis ? GI followed. S/p paracentesis on 07/01 with 1700mL fluid removed. Had prior paracentesis done with transudative fluid so no paracentesis fluid studies were sent this time. No history of alcohol abuse as below and findings of ascites and thrombocytopenia could point to cirrhosis. However, liver appearance on CT not consistent with cirrhosis, no splenomegaly on CT and no varices on recent EGD. Suspect abdominal ascites are in part secondary to heart failure as noted above. Per GI, have concern for possible pancreatic leak contributing to ascites in setting of chronic pancreatitis. Large lab workup sent, will follow-up results in outpatient setting as they become available. 3. Chronic macrocytic anemia, chronic thrombocytopenia ? Hemoglobin stable at baseline around 8. Platelet count stable at baseline 100- 130. 4. 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 Patient with blood glucose values in the 50s on the mornings of 07/02 and 07/03. Lantus 10 units at night discontinued with no further episodes of hypoglycemia. Will discontinue home Lantus 5 units daily. Okay to continue home metformin and Humalog sliding scale as needed with meals. Continue home gabapentin. 5. Relative hypotension in setting of history of hypertension/hyperlipidemia/nonobstructive CAD ? Patient with hypotension on admit despite being off all home blood pressure medications. Presume secondary to heart failure and aortic valve issues as noted above. Blood pressure remained stable around the low 100s systolic. Given midodrine for a short period of time while inpatient, will not continue this on discharge. New home regimen as noted above. Continue home statin. 6. Tobacco abuse ? Continue nicotine patch while inpatient. Discussed cessation on discharge. Chronic medical conditions: ? History of alcohol abuse: Continue cessation on discharge. Continue p.o. thiamine and folate. ? History of sick sinus syndrome s/p pacemaker placement ? History of thoracic aortic aneurysm with dissection s/p surgical repair ? History of heroin abuse: Remote, has been clean for approximately 10 years. ? GERD: Continue home PPI. Total clinical time spent by myself addressing the patient's medical issues, reviewing all the data, and collaborating with patient's care team: 35 minutes. Physical Exam Const alert, oriented x3, no apparent distress and average body habitus Constitutional Narrative: Upper middle-aged male, appears older than stated age, thin and chronically ill-appearing, mildly fatigued appearing but improved from admission, otherwise laying back comfortably in bed in no acute distress. General Appearance: cooperative and comfortable HEENT normocephalic, head/scalp atraumatic, hearing grossly normal bilaterally, nasal mucous membranes and turbinates normal and moist oral mucous membranes Eyes PERRL, EOMs intact bilaterally and conjunctivae normal Neck full ROM Chest inspection of chest normal Resp normal respiratory effort, normal air movement, no use of accessory muscles and clear to auscultation bilaterally Cardio regular rate, regular rhythm and peripheral pulses 2+ throughout Cardio Narrative: Systolic murmur noted. GI GI Narrative: Mild abdominal distention with very mild tenderness to palpation in lower abdomen. Abdomen otherwise soft with normoactive bowel sounds. Improved from admission. Back/Spine normal ROM Extremity normal to inspection and full ROM Skin no rashes or lesions noted Psych mental status grossly normal Weight / BMI Weight Weight: 66.4 kg Body Mass Index (BMI) 20.4 ABG / Lab / Microbiology Data 07/06/24 04:37 07/06/24 04:37 Laboratory: Laboratory Results - last 24 hr 07/03/24 09:37: Stool Calprotectin 91, Stl Giardia Antigen Negative, Miscellaneous Test 2 COMMENT 07/04/24 04:14: RAMANA-1 Antibody <0.2, SS-A/Ro IgG Antibody < 0.2, SS-B/La IgG Antibody < 0.2, Sm (Khalil) Antibody <0.2, TROUBLE TRACER Antibody <0.2, Scl-70 Scleroderma Ab <0.2, Double Strand DNA Ab <1, Antichromatin Antibodies <0.2, Centromere B Antibody <0.2, Anti-Mitochondrial Ab <20.0, Anti-Smooth Muscle Ab 2 07/05/24 11:48: POC Glucose 147 H 07/05/24 16:12: POC Glucose 181 H 07/05/24 21:06: POC Glucose 108 H 07/06/24 04:37: WBC 3.9 L, RBC 2.29 L, Hgb 8.3 L, Hct 25.1 L, MCV 109.6 H, MCH 36.2 H, MCHC 33.1, RDW Std Deviation 68.8 H, RDW Coeff of Kalpana 17.2 H, Plt Count 127 L, MPV 11.2, Sodium 135, Potassium 5.1, Chloride 102, Carbon Dioxide 26.4, Anion Gap 6, BUN 22 H, Creatinine 1.49 H, Estim Creat Clear Calc 48.90 L, Est GFR (MDRD) Non-Af 53 L, BUN/Creatinine Ratio 14.9, Glucose 145 H, Calcium 7.8 D/C Instructions DC O2, CPAP, BIPAP Needs Home O2 Discharge instructions: No Meaningful Use Info Meaningful Use Meaningful Use Diagnoses (Choose all that apply): None applicable Ischemic Stroke Statin Dosing Therapy Reference: STATIN DOSE THERAPY REFERENCE: * Patients > 75 years receive moderate or high dose statin therapy. * Patients 75 years or YOUNGER should receive HIGH intensity statin dose unless contraindicated. You will be required to document reason for non-treatment if statin daily dose does not meet guidelines. HIGH DOSE STATIN THERAPY DAILY Atorvastatin > than or = to 40 mg Rosuvastatin > than or = to 20 mg Amlodipine + Atorvastatin > than or = to 2.5/40 mg Ezetimibe + Simvastatin 10/80 mg Simvastatin 80mg Discharge Plan Admission Admit Date/Time: 06/30/24 19:47 Primary Reason for Your Visit: Abdominal pain Attending Provider: Chris Aragon Primary Care Provider: Marianna Wagner NP Consulting Providers: Conrado Pro; Melonie De La Rosa; Yaneli Carbone Instructions Additional Instructions / Restrictions: We have made several medication changes for you while here. Importantly, your blood pressure was running low here so several of your blood pressure medications were discontinued. Please see below for all of your medication changes. Follow-up with the ultrasound sonographer soon to discuss further evaluation foryour aortic valve. Discharge Orders/Prescriptions Prescriptions: New furosemide 20 mg Tablet 20 mg PO DAILY 30 Days Qty: 30 2RF metoprolol succinate 25 mg Tablet Extended Release 24 Hr 12.5 mg PO DAILY 30 Days Qty: 15 2RF spironolactone 25 mg Tablet 25 mg PO DAILY 30 Days Qty: 30 2RF Continued atorvastatin 10 mg tablet 10 mg PO DAILY dapagliflozin propanediol [Farxiga] 10 mg Tablet 10 mg PO DAILY multivitamin Tablet 1 tab PO DAILY gabapentin 300 mg Capsule 300 mg PO DAILY metformin 500 mg tablet extended release 24 hr 500 mg PO BID Patient Comments: PT STATES THEY TAKE THIS ONCE DAILY. pantoprazole 40 mg tablet,delayed release (DR/EC) 40 mg PO BID Qty: 60 0RF Creon 24,000-76,000 -120,000 unit Capsule,Delayed Release(Dr/Ec) 1 cap PO TIDCM Qty: 90 1RF thiamine HCl (vitamin B1) [Vitamin B-1] 100 mg Tablet 100 mg PO DAILYCM Qty: 0 0RF L.acidoph,saliva-B.bif-S.therm 175 mg Capsule 2 cap PO BID Qty: 0 0RF folic acid 1 mg Tablet 1 mg PO DAILY@0800 Qty: 0 0RF insulin lispro [Humalog KwikPen Insulin] 100 unit/mL Insulin Pen See Protocol subcut ACHS Qty: 0 0RF Protocol: 4. Sliding Scale Insulin High-Med Dosing Condition: 150-199 mg/dl = 2 units Condition: 200-259 mg/dl = 4 units Condition: 260-324 mg/dl = 6 units Condition: 325-374 mg/dl = 8 units Condition: 375-409 mg/dl = 10 units Condition: 410-449 mg/dl = 11 units Condition: Greater than 449 call physician Protocol Text: - Use for Total Daily Dose of Insulin 56-80 units - Patient who are insulin resistant or septic HIGH MEDIUM DOSING ALGORITHM ferrous sulfate [FeroSul] 325 mg (65 mg iron) tablet 325 mg PO DAILY tramadol 50 mg tablet 50 mg PO Q8H PRN (Reason: pain) 3 Days Qty: 9 0RF Discontinued hydralazine 25 mg tablet 25 mg PO TID insulin glargine [Lantus Solostar U-100 Insulin] 100 unit/mL (3 mL) insulin pen 5 unit subcut 1200 Patient Comments: pt stated he has not taken lantus for several days furosemide 40 mg tablet 40 mg PO DAILY Qty: 30 0RF spironolactone 25 mg tablet 12.5 mg PO DAILY Qty: 30 0RF Patient Comments: Reports he hasn't started taking 06/30/2024 Rx Instructions: Hold if serum potassium more than 5.1. metoprolol tartrate 50 mg tablet 50 mg PO BID ramipril 10 mg capsule 10 mg PO DAILY Referrals / Follow Up: Marianna Wagner NP, VEHICLE MODIFICATION TECHNICIAN-C [Primary Care Provider] - Disposition Disposition (needs filled in before D/C Order can be placed): Home, Self Care Charges/Coding Visit Charges Inpatient E&M: 71356 Disch Hosp >30min 07/06/24 1059 <Electronically signed by Chris Aragon DO> Cosigner Signature (if applicable): CC: ALAN Wagner; Dr. Chris Aragon DO~ Signed [facility] Work Phone: Evaluation + Plan note Future Appointments Appointment Date:04/18/2021 08:20:00 AM Scheduled Provider:ANDREAS PATHAK APRN - SPLUNK D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 Location:[facility] Appointment Type:PC OV Future Scheduled Tests Laboratory* Prostate Specific Antigen 04/06/21 * Thyroid Stimulating Hormone 01/04/21 * A1C Hemoglobin 01/04/21 * A1C Hemoglobin 07/09/21 * A1C Hemoglobin 10/09/21 * A1C Hemoglobin 04/08/21 * Complete Blood Count 04/06/21 * Complete Blood Count 04/08/21 * C-Peptide 01/04/21 * Lipid Profile 04/06/21 * Lipid Profile 04/08/21 * Insulin Level Total 01/04/21 * Microalbumin Level Urine 10/09/21 * Vitamin D Level 01/04/21 * Complete Metabolic Panel 01/04/21 * Complete Metabolic Panel 04/06/21 * Complete Metabolic Panel 04/08/21 Radiology* XR Spine Thoracic 2 Views 02/17/21 * XR Spine Lumbar W/Obliques 4 Views 02/17/21 [facility] Evaluation + Plan note Future Appointments Appointment Date:07/11/2021 08:40:00 AM Scheduled Provider:ANDREAS PATHAK APRN - SPLUNK D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 Location:[facility] Appointment Type:PC OV Follow Up Appointment Date:10/14/2021 08:00:00 AM Scheduled Provider:ANDREAS PATHAK APRN - SPLUNK D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 Location:[facility] Appointment Type:PC OV Follow Up Future Scheduled Tests Laboratory* Prostate Specific Antigen 04/06/21 * Thyroid Stimulating Hormone 01/04/21 * A1C Hemoglobin 01/04/21 * A1C Hemoglobin 07/09/21 * A1C Hemoglobin 10/09/21 * A1C Hemoglobin 04/08/21 * A1C Hemoglobin 07/19/21 * A1C Hemoglobin 10/19/21 * Complete Blood Count 04/06/21 * Complete Blood Count 04/08/21 * Complete Blood Count 10/19/21 * C-Peptide 01/04/21 * Lipid Profile 04/06/21 * Lipid Profile 04/08/21 * Lipid Profile 10/19/21 * Insulin Level Total 01/04/21 * Microalbumin Level Urine 10/09/21 * Microalbumin Level Urine 10/19/21 * Vitamin D Level 01/04/21 * Complete Metabolic Panel 01/04/21 * Complete Metabolic Panel 04/06/21 * Complete Metabolic Panel 04/08/21 * Complete Metabolic Panel 10/19/21 Radiology* XR Spine Thoracic 2 Views 02/17/21 * XR Spine Lumbar W/Obliques 4 Views 02/17/21 [facility] Evaluation + Plan note Future Appointments Appointment Date:08/07/2021 08:40:00 AM Scheduled Provider:ANDREAS PATHAK APRN - SPLUNK D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 Location:[facility] Appointment Type:PC OV Appointment Date:10/14/2021 08:00:00 AM Scheduled Provider:ANDREAS PATHAK APRN - SPLUNK D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 Location:[facility] Appointment Type:PC OV Follow Up Future Scheduled Tests Laboratory* Prostate Specific Antigen 04/06/21 * Thyroid Stimulating Hormone 01/04/21 * A1C Hemoglobin 01/04/21 * A1C Hemoglobin 10/09/21 * A1C Hemoglobin 04/08/21 * A1C Hemoglobin 07/19/21 * A1C Hemoglobin 10/19/21 * Complete Blood Count 04/06/21 * Complete Blood Count 10/19/21 * C-Peptide 01/04/21 * Lipid Profile 04/06/21 * Lipid Profile 10/19/21 * Insulin Level Total 01/04/21 * Microalbumin Level Urine 10/09/21 * Microalbumin Level Urine 10/19/21 * Vitamin D Level 01/04/21 * Complete Metabolic Panel 01/04/21 * Complete Metabolic Panel 04/06/21 * Complete Metabolic Panel 10/19/21 Radiology* XR Spine Thoracic 2 Views 02/17/21 * XR Spine Lumbar W/Obliques 4 Views 02/17/21 [facility] Evaluation + Plan note Future Appointments Appointment Date:05/25/2022 09:40:00 AM Scheduled Provider:ANDREAS PATHAK APRN, CNP Location:[facility] Appointment Type: OV Follow Up Future Scheduled Tests Laboratory* Renin, Plasma 02/06/22 * Prostate Specific Antigen 02/06/22 * A1C Hemoglobin 12/23/21 * A1C Hemoglobin 10/09/21 * A1C Hemoglobin 11/07/21 * A1C Hemoglobin 02/06/22 * A1C Hemoglobin 07/19/21 * A1C Hemoglobin 10/19/21 * Complete Blood Count 12/23/21 * Complete Blood Count 02/06/22 * Complete Blood Count 10/19/21 * Lipid Profile 12/23/21 * Lipid Profile 02/06/22 * Lipid Profile 10/19/21 * Microalbumin Level Urine 12/23/21 * Microalbumin Level Urine 10/09/21 * Microalbumin Level Urine 02/06/22 * Microalbumin Level Urine 10/19/21 * PTH, Intact 02/06/22 * Vitamin D Level 02/06/22 * Complete Metabolic Panel 12/23/21 * Complete Metabolic Panel 02/06/22 * Complete Metabolic Panel 10/19/21 * Complete Metabolic Panel 09/08/21 Radiology* XR Upper GI 05/04/22 [facility] Evaluation + Plan note Future Appointments Appointment Date:07/02/2022 01:00:00 PM Scheduled Provider: Location:[facility] Appointment Type:DB Diabetic Individual Visit (AOH) Diagnostic Tests Pending * Renin, Plasma 06/19/22 Future Scheduled Tests Laboratory* A1C Hemoglobin 12/23/21 * A1C Hemoglobin 10/09/21 * A1C Hemoglobin 11/07/21 * A1C Hemoglobin 07/19/21 * A1C Hemoglobin 10/19/21 * Complete Blood Count 12/23/21 * Complete Blood Count 10/19/21 * Lipid Profile 12/23/21 * Lipid Profile 10/19/21 * Microalbumin Level Urine 12/23/21 * Microalbumin Level Urine 10/09/21 * Microalbumin Level Urine 02/06/22 * Microalbumin Level Urine 10/19/21 * Complete Metabolic Panel 12/23/21 * Complete Metabolic Panel 10/19/21 * Complete Metabolic Panel 09/08/21 Radiology* XR Upper GI 05/26/22 [facility] Evaluation + Plan note Future Appointments Appointment Date:07/07/2022 01:45:00 PM Scheduled Provider: Location:[facility] Appointment Type:DB Diabetic Individual Visit (AOH) Appointment Date:07/13/2022 01:15:00 PM Scheduled Provider: Location:[facility] Appointment Type:PC Nurse BP Check Appointment Date:10/01/2022 10:20:00 AM Scheduled Provider:ANDREAS PATHAK APRN, CNP Location:[facility] Appointment Type:PC OV Follow Up Future Scheduled Tests Laboratory* Renin, Plasma 01/02/23 * Ferritin 01/02/23 * Folate Level 01/02/23 * Lactate Dehydrogenase 01/02/23 * Thyroid Stimulating Hormone 01/02/23 * Vitamin B12 Level 01/02/23 * A1C Hemoglobin 12/23/21 * A1C Hemoglobin 01/02/23 * A1C Hemoglobin 10/02/22 * A1C Hemoglobin 10/09/21 * A1C Hemoglobin 11/07/21 * A1C Hemoglobin 07/19/21 * A1C Hemoglobin 10/19/21 * Complete Blood Count 12/23/21 * Complete Blood Count 01/02/23 * Complete Blood Count 10/02/22 * Complete Blood Count 10/19/21 * Lipid Profile 12/23/21 * Lipid Profile 10/19/21 * Albumin/Creatinine Ratio, Random Urine 07/02/22 * Microalbumin Level Urine 12/23/21 * Microalbumin Level Urine 10/09/21 * Microalbumin Level Urine 02/06/22 * Microalbumin Level Urine 10/19/21 * PTH, Intact 01/02/23 * Reticulocytes - Panel 01/02/23 * Vitamin D Level 01/02/23 * Vitamin D Level 10/02/22 * Complete Metabolic Panel 12/23/21 * Complete Metabolic Panel 01/02/23 * Complete Metabolic Panel 10/02/22 * Complete Metabolic Panel 10/19/21 * Complete Metabolic Panel 09/08/21 * TIBC 01/02/23 Radiology* XR Upper GI 05/26/22 [facility] Evaluation + Plan note Future Appointments Appointment Date:01/04/2023 01:40:00 PM Scheduled Provider:ANDREAS PATHAK APRN, CNP [facility] [facility] Appointment Type: OV Follow Up Future Scheduled Tests Laboratory* Renin, Plasma 01/02/23 * Ferritin 01/02/23 * Folate Level 01/02/23 * Lactate Dehydrogenase 01/02/23 * Thyroid Stimulating Hormone 01/02/23 * Vitamin B12 Level 01/02/23 * A1C Hemoglobin 12/23/21 * A1C Hemoglobin 10/01/22 * A1C Hemoglobin 01/02/23 * A1C Hemoglobin 10/02/22 * A1C Hemoglobin 10/09/21 * A1C Hemoglobin 11/07/21 * A1C Hemoglobin 10/19/21 * Complete Blood Count 12/23/21 * Complete Blood Count 10/01/22 * Complete Blood Count 01/02/23 * Complete Blood Count 10/02/22 * Complete Blood Count 10/19/21 * C-Peptide 09/18/22 * Lipid Profile 12/23/21 * Lipid Profile 10/01/22 * Lipid Profile 10/19/21 * Albumin/Creatinine Ratio, Random Urine 07/02/22 * Microalbumin Level Urine 12/23/21 * Microalbumin Level Urine 10/09/21 * Microalbumin Level Urine 02/06/22 * Microalbumin Level Urine 10/19/21 * PTH, Intact 01/02/23 * Reticulocytes - Panel 01/02/23 * Vitamin D Level 10/01/22 * Vitamin D Level 01/02/23 * Vitamin D Level 10/02/22 * Complete Metabolic Panel 12/23/21 * Complete Metabolic Panel 10/01/22 * Complete Metabolic Panel 01/02/23 * Complete Metabolic Panel 10/02/22 * Complete Metabolic Panel 10/19/21 * TIBC 01/02/23 [facility] Evaluation + Plan note Future Appointments Appointment Date:11/13/2022 01:00:00 PM Scheduled Provider: Location:[facility] Appointment Type:NUT Diet Visit Individual Appointment Date:11/13/2022 02:00:00 PM Scheduled Provider: Location:[facility] Appointment Type:DB Diabetic Individual Visit (AOH) Appointment Date:01/04/2023 01:40:00 PM Scheduled Provider:ANDREAS PATHAK APRN, CNP Location:[facility] Appointment Type:PC OV Follow Up Future Scheduled Tests Laboratory* Renin, Plasma 01/02/23 * Ferritin 01/02/23 * Folate Level 01/02/23 * Lactate Dehydrogenase 01/02/23 * Thyroid Stimulating Hormone 01/02/23 * Vitamin B12 Level 01/02/23 * A1C Hemoglobin 01/02/23 * Complete Blood Count 01/02/23 * Albumin/Creatinine Ratio, Random Urine 07/02/22 * PTH, Intact 01/02/23 * Reticulocytes - Panel 01/02/23 * Vitamin D Level 01/02/23 * Complete Metabolic Panel 01/02/23 * TIBC 01/02/23 [facility] Evaluation + Plan note Future Appointments Appointment Date:04/12/2023 01:30:00 PM Scheduled Provider: Location:[facility] Appointment Type:MEDS - Diabetic Individual Visit Future Scheduled Tests Laboratory* Renin, Plasma 01/02/23 * Ferritin 01/02/23 * Folate Level 01/02/23 * Lactate Dehydrogenase 01/02/23 * Prostate Specific Antigen 07/14/23 * Thyroid Stimulating Hormone 01/02/23 * Vitamin B12 Level 01/02/23 * A1C Hemoglobin 01/02/23 * A1C Hemoglobin 07/14/23 * Complete Blood Count 01/02/23 * Complete Blood Count 07/14/23 * Lipid Profile 07/14/23 * Albumin/Creatinine Ratio, Random Urine 07/02/22 * Albumin/Creatinine Ratio, Random Urine 07/14/23 * PTH, Intact 01/02/23 * PTH, Intact 07/14/23 * Reticulocytes - Panel 01/02/23 * Vitamin D Level 01/02/23 * Vitamin D Level 07/14/23 * Complete Metabolic Panel 01/02/23 * Complete Metabolic Panel 07/14/23 * TIBC 01/02/23 Radiology* US Elastography Liver w/ABD Complete 03/05/23 [facility] Evaluation note* Diagnosis Onset Date Resolution Status Chest pain acute [facility] Work Phone: Evaluation note* Diagnosis Onset Date Resolution Status Chest pain resolved [facility] Work Phone: Evaluation note* Diagnosis Onset Date Resolution Status Chest pain resolved Alcohol intoxication acute [facility] Work Phone: Evaluation note* Diagnosis Onset Date Resolution Status Chest pain resolved Alcohol dependence acute Alcohol withdrawal acute Tremors of nervous system ac [place] [facility] Work Phone: Evaluation note* Diagnosis Onset Date Resolution Status Non-sustained ventricular tachycardia acute Cardiac pacemaker in situ 2017 ch ronic Sick sinus syndrome chronic [facility] Work Phone: Evaluation note* Diagnosis Onset Date Resolution Status Non-sustained ventricular tachycardia acute Cardiac pacemaker in situ 2016 ch ronic Sick sinus syndrome chronic Acute hypokalemia acute ETOH abuse acute History of diabetes mellitus acute Hx of hypercholesterolemia a cute Hypokalemia acute Withdrawn from alcohol detoxification program acute Diabetes mellitus, type II c hronic HTN (hypertension) chronic Tobacco use chronic [facility] Work Phone: Evaluation note* Diagnosis Onset Date Resolution Status Acute hypokalemia acute ETOH abuse acute HTN (hypertension) chronic Hypokalemia resolved ETOH abuse acute Alcohol withdrawal resolved Desire for detoxification re solved Acute hypokalemia acute Alcohol withdrawal acute Desire for detoxification [place] ETOH abuse acute Nausea & vomiting acute [facility] Work Phone: Evaluation note* Diagnosis Onset Date Resolution Status Alcohol withdrawal resolved Nausea & vomiting resolved Acute dehydration acute Admitted to alcohol detoxification center acute Alcohol abuse acute Alcohol withdrawal acute History of diabetes mellitus acute [facility] Work Phone: Evaluation noteNo assessment information available [facility] Work Phone: Evaluation note* Diagnosis Onset Date Resolution Status Abdominal ascites acute Alcohol abuse acute Alcohol dependence acute Alcoholic hepatitis acute Gastric wall thickening acut e Chronic pancreatitis chronic [facility] Work Phone: Evaluation note* Diagnosis Onset Date Resolution Status Acute cystitis without hematuria acute Acute UTI acute Alcohol withdrawal acute Chronic pancreatitis due to chronic alcoholism acute Hypoxia acute Intractable abdominal pain a cute Medically noncompliant acute Pleural effusion acute Protein-calorie malnutrition, severe acute Chronic alcohol abuse chroni c [facility] Work Phone: Evaluation note* Diagnosis Onset Date Resolution Status Acute cystitis without hematuria acute Acute UTI acute MALIK (acute kidney injury) [place] Alcohol withdrawal acute Chronic pancreatitis due to chronic alcoholism acute Hypoxia acute Intractable abdominal pain a cute Medically noncompliant acute Pleural effusion acute Protein-calorie malnutrition, severe acute Sepsis acute Chronic alcohol abuse chroni c HTN (hypertension) chronic [facility] Work Phone: Evaluation note* Diagnosis Anemia, unspecified type- Primary [facility]* Diagnosis Type 2 diabetes mellitus with complication, with long-term current use of insulin (HCC)- Primary Alcohol-induced chronic pancreatitis (HCC) Chronic pancreatitis Irritable bowel syndrome, unspecified type Chronic diarrhea Diarrhea Weight loss Loss of weight Primary hypertension Unspecified essential hypertension Pacemaker Cardiac pacemaker in situ History of dissection of thoracic aorta Cigarette smoker Tobacco use disorder Hyperlipidemia, mixed Mixed hyperlipidemia Vitamin D deficiency Unspecified vitamin D deficiency Stage 3 chronic kidney disease, unspecified whether stage 3a or 3b CKD (HCC) Gastroesophageal reflux disease, unspecified whether esophagitis present Dysuria Screening for prostate cancer Special screening for malignant neoplasm of prostate Screening for HIV (human immunodeficiency virus) Special screening examination for other specified viral diseases [facility]* Diagnosis Diarrhea of presumed infectious origin- Primary Generalized abdominal pain Abdominal pain, generalized [facility]* Diagnosis Anemia, unspecified type- Primary Chronic diarrhea Diarrhea [facility]* Diagnosis Generalized abdominal pain- Primary Abdominal pain, generalized Diarrhea of presumed infectious origin Weight loss Loss of weight Stage 3 chronic kidney disease, unspecified whether stage 3a or 3b CKD (HCC) Anemia, unspecified type Primary hypertension Unspecified essential hypertension History of alcohol abuse Nondependent alcohol abuse, in remission Alcohol-induced chronic pancreatitis (HCC) Chronic pancreatitis Dysuria Elevated liver enzymes Other nonspecific abnormal serum enzyme levels Vitamin D deficiency Unspecified vitamin D deficiency Cigarette smoker Tobacco use disorder [facility]* Diagnosis 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 difficile diarrhea Intestinal infection due to clostridium difficile E. coli UTI Urinary tract infection, site not specified documented [facility]* Diagnosis Generalized abdominal pain Abdominal pain, generalized Diarrhea of presumed infectious origin Weight loss Loss of weight Anemia, unspecified type History of alcohol abuse Nondependent alcohol abuse, in remission Elevated liver enzymes Other nonspecific abnormal serum enzyme levels [facility]* Diagnosis E. 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) Medically complex patient Unspecified conditions influencing health status Anemia, unspecified type documented [facility]* Diagnosis Anemia, unspecified type- Primary Diarrhea of presumed infectious origin 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) Medically complex patient Unspecified conditions influencing health status [facility]* Diagnosis Diarrhea, unspecified type Acute pancreatitis, unspecified complication status, unspecified pancreatitis type [facility]* Diagnosis Diarrhea, unspecified type- Primary Acute pancreatitis, unspecified complication status, unspecified pancreatitis type [facility]* Diagnosis Diarrhea, unspecified type Acute pancreatitis, unspecified complication status, unspecified pancreatitis type [facility]* Diagnosis Anemia, unspecified type- Primary Weight loss Loss of weight Chronic pancreatitis, unspecified pancreatitis type (HCC) Epigastric pain Abdominal pain, epigastric Right lower quadrant abdominal pain Abdominal pain, right lower quadrant documented [facility]* Diagnosis Primary hypertension- Primary Unspecified essential hypertension Type 2 diabetes mellitus with complication, with long-term current use of insulin (HCC) Stage 3 chronic kidney disease, unspecified whether stage 3a or 3b CKD (HCC) Hyperlipidemia, mixed Mixed hyperlipidemia Gastroesophageal reflux disease, unspecified whether esophagitis present Chronic pancreatitis, unspecified pancreatitis type (HCC) Anemia, unspecified type documented in this encounter [facility] note* Diagnosis Anemia, unspecified type documented in this encounter [facility] note* Diagnosis Anemia, unspecified type- Primary documented in this encounter [facility] note* Diagnosis Gastroesophageal reflux disease, unspecified whether esophagitis present documented in this encounter [facility] note* Diagnosis Type 2 diabetes mellitus with complication, with long-term current use of insulin (HCC)- Primary Hyperlipidemia LDL goal <100 Other and unspecified hyperlipidemia Primary hypertension Unspecified essential hypertension documented in this encounter [facility] note* Diagnosis Type 2 diabetes mellitus with complication, with long-term current use of insulin (HCC) documented in this encounter [facility] note* Diagnosis Anemia, unspecified type Weight loss Loss of weight Chronic pancreatitis, unspecified pancreatitis type (HCC) Epigastric pain Abdominal pain, epigastric documented in this encounter [facility] note* Diagnosis Hyperlipidemia LDL goal <100 Other and unspecified hyperlipidemia Primary hypertension Unspecified essential hypertension documented in this encounter [facility] note* Diagnosis Anemia, unspecified type- Primary 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) documented in this encounter [facility] note* Diagnosis Primary hypertension Unspecified essential hypertension documented in this encounter [facility] note* Diagnosis Primary hypertension Unspecified essential hypertension Gastroesophageal reflux disease, unspecified whether esophagitis present documented in this encounter [facility] note* Diagnosis Onset Date Resolution Status Admit Date Adverse drug reaction acute June 25, 2024 10:15pm Ascites due to alcoholic cirrhosis acute June 25, 2024 1 0:15pm Hypokalemia acute June 25 10:15pm Lactic acidosis acute June 25, 2024 10:15pm Chronic alcohol abuse chronic June 25, 2024 10:15pm Chronic diarrhea chronic June 10:15pm [facility] Work Phone: Evaluation note* Diagnosis Chronic diarrhea Diarrhea Irritable bowel syndrome, unspecified type Hyperlipidemia LDL goal <100 Other and unspecified hyperlipidemia documented in this encounter [facility] note* Diagnosis Primary hypertension Unspecified essential hypertension [facility] Aguayo [facility] March 21, 2022 6:31pm Note Date/Time March 21, 2022 6:06pm [facility] Medical Records Department [address] [place] [address] H&P Exam - Hospitalist 03/21/22 1831 MR#: [id number] Acct: [id number] Name: ANALILIA MELENDREZ Rep #:[id number] : 1960 61 From: Iman Aguayo MD PCP: Andreas Pathak, ALAN Ball tus:ADM IN [id number] HPI - General General Date of Admission: 03/21/22 Date of Service: 03/21/22 Chief Complaint: Acute EtOH withdrawal HPI Narrative The patient is a 61 y/o M w/ PMHx: Chronic macrocytic anemia, Diabetes mellitus type II, Hx sick sinus syndrome s/p pacemaker placement, Hx Ascending aortic dissection s/p repair, Valvular heart disease s/p AVR with bioprosthetic valve, HTN, HLD, GERD, EtOH abuse (Prior reported 3-4 Tall Boys daily->currently had transitioned down to 2 daily), admitted for acute EtOH detoxification 11/05/21, 11/11/21 and most recently 02/01/22 who now re-presents to the [facility] ED on 03/21/22 with history of unfortunately started drinking again since his most recent detoxification discharge at the end of January with last drink the day prior, again tall boys usually 2/day now with onset since then nausea, emesis and loosestools with no associated specific abdominal pain but in addition inability to maintain appropriate hydration, tremors, tactile disturbances, fatigue and restlessness prompting eventual ED evaluation. He notes that he discussed his status with his daughter who strongly encouraged him to present to the ED for treatment again which he finally decided to do. Work-up in the ED included T97.5, heart rate 119, BP 181/68, respiratory rate 18, 98% on room air, CBC withWC 6, hemoglobin 13.2, platelet 144 with lymphopenia, pending BMP upon requestedevaluation, pending ethyl alcohol upon requested evaluation, POC glucose 337. [facility] Medical History Acute hypokalemia Adrenal nodule Alcohol dependence Alcoholism Alcoholism Aortic aneurysm Ascending aortic dissection (~2005) Cardiac pacemaker in situ (~06/2016) Desire for detoxification Diabetes mellitus, type II Essential hypertension ETOH abuse Hiatal hernia History of diabetes mellitus HTN (hypertension) Hx of hypercholesterolemia Left carotid bruit Non-sustained ventricular tachycardia Pacemaker Pleuritic chest pain Pure hypercholesterolemia Right bundle branch block (RBBB) Shortness of breath Sick sinus syndrome Smoker Stroke Substance abuse SVT (supraventricular tachycardia) Thoracic aortic aneurysm Tobacco use Home Medications omeprazole 40 mg capsule,delayed release 40 mg PO DAILY reflux 06/10/18 [History Last Taken 11/11/21] metformin 500 mg tablet 500 mg PO DAILY diabetes 01/21/19 [History Last Taken 11/11/21] amlodipine 5 mg tablet 5 mg PO DAILY HEART 10/17/20 [History Last Taken 11/11/21] atorvastatin 10 mg tablet 10 mg PO DAILY CHOLESTEROL 10/17/20 [History Last Taken 11/11/21] hydralazine 25 mg tablet 25 mg PO TID BP 10/17/20 [History Last Taken 11/11/21] hydrochlorothiazide 12.5 mg tablet 12.5 mg PO DAILY BP 10/17/20 [History Last Taken 11/11/21] ramipril 10 mg capsule 10 mg PO BID BP 10/17/20 [History Last Taken 11/11/21] dapagliflozin 10 mg tablet (Farxiga) 10 mg PO DAILY DIABETES 09/30/21 [History Last Taken 11/11/21] gabapentin 300 mg capsule 300 mg PO Q8H PRN PRN neruropathic pain #30 caps 11/08/21 [Rx Last Taken 11/11/21] multivitamin 1 tab PO DAILY supplement 11/11/21 [History Last Taken 11/10/21] potassium chloride 10 mEq tablet,extended release(part/cryst) 20 meq PO DAILY supplement 11/11/21 [History Last Taken Unknown] insulin detemir U-100 100 unit/mL (3 mL) subcutaneous pen 8 unit (0.08 mL) subcut DAILY DM #3 mL 02/04/22 [Rx Last Taken 11/11/21] insulin lispro 100 unit/mL subcutaneous pen (Humalog KwikPen (U-100) Insulin) 5 unit subcut TIDAC dm 03/21/22 [History Last Taken Unknown] Allergy/AdvReac Type Severity Reaction Status Date / Time No Known Allergies Allergy Verified 03/21/22 17:43 Family History Father CAD (coronary artery disease) Mother Dementia Surgical History H/O aortic valve replacement H/O cardiac catheterization History of aortic aneurysm repair (~2017) History of aortic valve replacement with bioprosthetic valve (~2017) History of cataract surgery History of hernia repair Social History (Updated 03/21/22 @ 18:[address] Iman Aguayo MD) Smoking Status: Current every day smoker tobacco type: cigarettes alcohol intake: current alcohol intake frequency: 0-2 drinks per day details: Reports currently ~ 2 tall boys daily. substance use type: former substance user caffeine: Yes Type: coffee Number of servings: 3 ROS ROS Narrative Admission Review of Systems: CONSTITUTIONAL: No weight loss, fever, chills, + weakness or fatigue. HEENT: Eyes: No visual loss, blurred vision, double vision or yellow sclerae. Ears, Nose, Throat: No hearing loss, sneezing, congestion, runny nose or sore throat. SKIN: No rash or itching, lesions, wounds. CARDIOVASCULAR: No chest pain, palpitations, edema, orthopnea, syncopal events. RESPIRATORY: No shortness of breath, cough or sputum, wheezing, hemoptysis. GASTROINTESTINAL: + anorexia, nausea, vomiting, loose stools, No abdominal pain,melena, BRBPR. GENITOURINARY: No dysuria, frequency, urgency or retention. NEUROLOGICAL: + Tactile disturbances, mild tremors, No headache, dizziness, syncope, paralysis, ataxia, numbness or tingling in the extremities, focal weakness, change in bowel or bladder control, seizure. MUSCULOSKELETAL: + muscle, back pain, joint pain or stiffness. HEMATOLOGIC: + anemia, bleeding or bruising. LYMPHATICS: No enlarged nodes. No history of splenectomy. PSYCHIATRIC: + history of depression or anxiety. ENDOCRINOLOGIC: + reports of sweating, No cold or heat intolerance. No polyuria or polydipsia. ALLERGIES: No history of asthma, hives, eczema or rhinitis. Vital Signs Vital Signs Vital Signs: 03/21/22 17:43 Temperature 97.5 F L Temperature Source Temporal Pulse Rate 119 H Respiratory Rate 18 Blood Pressure 181/68 H Blood Pressure Mean 105 Pulse Ox 98 Oxygen Delivery Method Room Air Weight Weight: 150 lb Body Mass Index (BMI) 20.9 Physical Exam Narrative Physical Examination: General: Awake, alert, oriented x 3 and cooperative, seated upright in ED bed, fatigued, mild tremors noted. Skin: Normal color, normal turgor, no icterus, no cyanosis except occasional staged ecchymoses. HEENT: AT/NC, EOMI, PERRLA, dry MM, no carotid bruits or JVD noted. Lungs: Diminished, greater bases, appropriate effort, no rales, ronchi or wheezing. Heart: Mildly tachycardic with regular rhythm; no gallop, rub audible, + SM. Abdomen: Soft, NTTP, ND, hyperactive BS, + HM. Extremities: No cyanosis, clubbing, or edema. Neurological: Patient awake, alert, oriented as noted, cognitive function appears baseline intact; pupils equally reactive to light and accommodation, cranial nerves II-XII grossly normal, moving all 4 extremities, no focal deficits, strength mildly to moderately global decrease secondary to acute presentation, mildly tremulous. Psychiatric: Affect appears mildly tremulous, flat affect, reports feeling likean idiot for starting to drink again, improves with discussions. Results Lab / Micro Data Result Diagrams: 03/21/22 18:00 03/21/22 18:00 Assessment & Plan Assessment/Plan (1) Alcohol withdrawal: PLAN: Plan The patient is a 61 y/o M w/ PMHx: Chronic macrocytic anemia, Diabetes mellitus type II, Hx sick sinus syndrome s/p pacemaker placement, Hx Ascending aortic dissection s/p repair, Valvular heart disease s/p AVR with bioprosthetic valve, HTN, HLD, GERD, EtOH abuse, admitted for acute EtOH detoxification 11/05/21, 11/11/21 and most recently 02/01/22 who now re-presents to the [facility] ED on 03/21/22 with history of unfortunately started drinking again since his most recent detoxification discharge at the end of January with last drink the day prior with onset of acute alcohol withdrawal symptoms. #1.? Acute EtOH Withdrawal with associated nausea, emesis, loose stools, similarto prior acute withdrawal presentation: Will admit to [facility], currently only CBC hasreturned upon evaluation of patient, BMP/hepatic profile pending but will ascertain any renal insufficiency or electrolyte disturbances once results givenGI losses, will initiate and continue on protocol with taper course of Phenobarbital, scheduled gabapentin for seizure prophylaxis, as needed Catapres,Bentyl, Vistaril, IV fluids, IV antiemetics, Tylenol as needed for pain. Will consult Case management for assistance for transition to next level of rehabilitation care. Mag, phos pending. Maintain on CIWA protocol concurrently. If symptoms do not improve with acute treatment EtOH withdrawal as they have prior would obtain stool enteric and cdiff to be cautious although symptoms onlystarted when his withdrawal started, again similar to last admission. #2.? Valvular heart disease: Patient initially status post mechanical valve replacement eventually transitioned to bioprosthetic AV replacement, 04/02/2020 echocardiogram with EF 70%, severe concentric LVH, trivial MVI, mild TVI, stableappearing bioprosthetic AV apparatus, RVSP 19 mmHg, transmitral Doppler flow suggestive of impaired relaxation LV, ICD/pacer leads identified. #3.? Diabetes mellitus type II with Hyperglycemia: Admission POC glucose 337. Will hold oral home regimen, continue home insulin regimen with 1/2 dose if unable to tolerate oral initially, will start with clears and once improving with resolved nausea and emesis will transition to ADA diet, accu checks w/ ISS. #4.? Chronic macrocytic anemia: Admission hemoglobin 13.2, baseline hemoglobin vacillates between 12-14, continue vitamin B12/thiamine/folic acid supplementation, trend CBC as needed. #5. History ascending aortic dissection: Status post repair, most recent CT noted 09/08/2019 with expected appearance of repaired normal diameter of the aorta. #6.? Hypertension: Given unclear renal status will hold on immediate addition ACEI/HCTZ, will continue norvasc and hydralazine until function obtained, PRN IVhydralazine as needed. #7.? Hyperlipidemia: We will continue statin therapy. #8.? Hx Sick Sinus Syndrome: s/p pacemaker placement. #9.? Tobacco Abuse: Encouraged cessation, inpatient consultation per RT, NR if desired. #10.? GERD: Will maintain on BID PPI and carafate given recent bouts N/V, PRN mylanta. #13.? DVT prophylaxis: Encourage ambulation, with EtOH detoxification admission would consider risk low. Admission Evaluation Time spent evaluating chart, patient history, patient evaluation, care planning and discussion with specialists: 75 minutes. Charges/Coding Visit Charges Inpatient E&M: 25964 Init Hosp L3 03/21/22 1831 <Electronically signed by Iman Aguayo MD> Cosigner Signature (if applicable): CC: VEHICLE MODIFICATION TECHNICIAN-C Andreas Pathak; Dr. Iman Aguayo MD~ Signed [facility] Work Phone: History and physical note Author Melonie De La Rosa [facility] Note Date/Time July 11, 2024 3:21p m [facility] Medical Records Department [address] [place] [address] H&P Exam - Hospitalist 07/11/24 1405 MR#: [id number] Acct: [id number] Name: ANALILIA MELENDREZ Rep #:[id number] : 1960 63 From: Melonie De La Rosa DO PCP: ALAN Wilde Status:REG E R Location: ED HPI - General General Date of Admission: 07/11/24 Date of Service: 07/11/24 Chief Complaint: Suicidal ideation/nausea vomiting HPI Narrative ANALILIA MELENDREZ, is a 63 M who presented to the emergency department at [facility] on 07/11/2024 with a chief complaint of suicidal ideation and nausea and vomiting. Patient has had multiple admissions with this being his third in the last 3 weeks. He has a history of alcoholic pancreatitis as well as cirrhosis and medical noncompliance. He states he has not been compliant with his medications since his discharge on the . He has not been drinking. He did have an appointment with the counselor today who checked on him. He told the counselor that he did not want to live anymore but denied any specific suicidal or homicidal ideations. He tells me he is just in a bad way. He states he has no plan to hurt himself. He has a headache without any previous trauma. He requests by name all tramadol or morphine for this. He stated that he has also been nauseated. He indicates his last bowel movement was on Wednesday or Wednesday. He has not been having good flatus and not been able to take much in by p.o. He does not appear to be markedly dehydrated on exam. Again, he reports has not been taking his medications as he was directed at discharge. Vital signs on presentation showed a temperature of 98.1, heart rate 64, respiratory rate 19, blood pressure 145/110 and pulse ox is 97% on room air. CBCshows a normal white count with an anemia that is stable having hemoglobin of 9.3. This platelet count has normalized. His chemistry panel is overall unremarkable other than a blood glucose of 137 and he is a known diabetic. AST shows mild elevation of 53 but ALT is normal and alk phos is normal. Bilirubin is normal. Lipase was 6. His UA is not suggestive of infection. A CT of the abdomen pelvis was done due to his ongoing nausea and decreased p.o. intake and demonstrated stable bilateral pleural effusions with compressive atelectasis, hepatomegaly with fatty liver, and multiple distended small bowel loops with differential air-fluid levels measuring up to 3.4 cm concerning for ileus versuspartial small bowel obstruction, improving inflammation in the cecum and fecal retention in the colon consistent with constipation. The emergency department he was treated with IV fluids x 1 L, Tylenol, Toradol, Reglan x 1 dose and Zofran IV 4 mg x 1 dose. Given the finding of ileus versus small bowel obstruction on CT request for admission was made. The case was discussed with Dr. Fontanez prior to admission. [facility] Medical History Thrombocytopenia Chronic pancreatitis Macrocytosis associated with alcohol Ascites due to alcoholic cirrhosis Chronic diarrhea Chronic alcohol abuse Abdominal ascites MALIK (acute kidney injury) Seizures Alcoholic hepatitis Chronic pancreatitis Gastric wall thickening Alcohol dependence Anxiety Diabetes Pancreatitis Myocardial infarct Pacemaker AAA (abdominal aortic aneurysm) Admitted to alcohol detoxification center Alcohol abuse Hx of hypercholesterolemia History of diabetes mellitus Alcohol dependence Substance abuse Smoker Alcoholism Right bundle branch block (RBBB) Non-sustained ventricular tachycardia Thoracic aortic aneurysm SVT (supraventricular tachycardia) Ascending aortic dissection (~2005) Pure hypercholesterolemia Adrenal nodule Hiatal hernia Left carotid bruit Cardiac pacemaker in situ (~06/2016) Essential hypertension Pacemaker Sick sinus syndrome Tobacco use HTN (hypertension) Diabetes mellitus, type II Home Medications ?Medication ?Instructions ?Recorded ?Last Taken ?Type atorvastatin 10 mg tablet 10 mg PO DAILY CHOLESTEROL 0 10/17/20 04/19/23 History dapagliflozin propanediol 10 mg 10 mg PO DAILY DIABETE S 08/23/22 03/11/24 History tablet (Farxiga) multivitamin 1 tab PO DAILY SUPPLEMENT 11/10/21 History gabapentin 300 mg capsule 300 mg PO DAILY NEUROPATHY 1 Unknown History metformin 500 mg tablet,extended 500 mg PO BID DIABETE S 11/15/22 04/19/23 History release 24 hr L.acidophil,salivari-Bifido 2 cap PO BID #0 caps 05/19 Unknown Rx bifidum-Strep thermoph 175 mg capsule folic acid 1 mg tablet 1 mg PO DAILY@0800 supplemen t #0 05/20/23 Unknown Rx tabs insulin lispro 100 unit/mL See Protocol subcut ACHS di abetes 05/20/23 Unknown Rx subcutaneous pen (Humalog KwikPen #0 mL (U-100) Insulin) thiamine HCl (vitamin B1) 100 mg 100 mg PO DAILYCM vit padilla #0 tabs 05/20/23 Unknown Rx tablet (Vitamin B-1) pantoprazole 40 mg tablet,delayed 40 mg PO BID reflux #60 tabs 06/27/23 Unknown Rx release oetesl-ymaxworn-aaekubi 1 cap PO TIDCM #90 caps 06/09 03/04 Unknown Rx 24,000-76,000-120,000 unit capsule,delayed rel (Creon) ferrous sulfate 325 mg (65 mg 325 mg PO DAILY suppleme nt 06/30/24 Unknown History iron) tablet (FeroSul) furosemide 20 mg tablet 20 mg PO DAILY 30 days #30 t abs 07/06/24 Unknown Rx metoprolol succinate 25 mg 12.5 mg (1/2 x 25 mg) PO DA RASHEED 30 07/06/24 Unknown Rx tablet,extended release 24 hr days #15 tabs spironolactone 25 mg tablet 25 mg PO DAILY 30 days #30 tabs 07/06/24 Unknown Rx tramadol 50 mg tablet 50 mg PO Q8H PRN pain 3 days #9 07/06/24 Unknown Rx tabs Allergy/AdvReac Type Severity Reaction Status Date / Time No Known Allergies Allergy Verified 07/11/24 11:38 Family History Father CAD (coronary artery disease) Mother Dementia Surgical History H/O cardiac catheterization History of aortic aneurysm repair (~2017) History of cataract surgery History of hernia repair History of aortic valve replacement with bioprosthetic valve (~2017) H/O aortic valve replacement Social History household members: family housing: house Smoking Status: Current every day smoker tobacco type: cigarettes alcohol intake: current alcohol intake frequency: 0-2 drinks per day details: Reports currently ~ 2 tall boys daily. substance use type: former substance user caffeine: Yes Type: coffee Number of servings: 3 ROS Constitutional Constitutional: Denies anorexia, change in weight, chills, fatigue, fever(s), malaise, night sweats, weakness or other Eyes Eyes: Denies blurry vision, change in eye color, change in vision, discharge from eye(s), double vision, erythema, eye pain, loss of vision or other ENT HEENT: Denies abnormal hearing, dysphagia, ear pain, epistaxis, headache(s), hearing loss, nasal congestion, nasal discharge, post nasal drip, sinus pressure, sore throat or other Cardiovascular Cardiovascular: Denies chest pain, claudication, dyspnea on exertion, edema, lightheadedness, orthopnea, palpitations, paroxysmal nocturnal dyspnea, rapid heart rate, syncope or other Respiratory/Chest Respiratory/Chest: Denies cough, dyspnea, excessive phlegm production, hemoptysis, productive cough, shortness of breath at rest, shortness of breath with exertion, wheezing or other Gastrointestinal Gastrointestinal: Reports abdominal pain, constipation, nausea and other Details: No flatus Genitourinary Genitourinary: Denies burning urination, difficulty urinating, dysuria, hematuria, nocturia, urinary frequency, urinary hesitancy, urinary incontinence,urinary urgency or other Musculoskeletal Musculoskeletal: Reports back pain; Denies arthralgias, joint pain, joint stiffness, joint swelling, myalgias, neck pain or other Neurologic Neurologic: Reports paresthesias and tingling; Denies abnormal gait, abnormal speech, confusion, disequilibrium, dizziness, focal weakness, headache(s), numbness, seizure-like activity, seizures, syncope, tremor(s) or other Psychiatric Psychiatric: Reports depression; Denies anxiety, homicidal ideation, suicidal ideation or other Endocrine Endocrinology: Denies change in body appearance, cold intolerance, excessive sweating, heat intolerance, polydipsia, polyuria or other Hematologic/Lymphatic Hematologic/Lymphatic: Reports anemia and easy bruising; Denies easy bleeding, lymphadenopathy or other Allergic/Immunologic Allergic/Immunologic: Denies rhinitis, hives, eczemia, asthma or other Vital Signs Vital Signs Vital Signs: 07/11/24 11:28 07/11/24 13:27 07/11/24 13:51 Temperature 98.1 F 98.6 F Temperature Source Oral Pulse Rate 64 89 89 Respiratory Rate 19 H 18 18 Blood Pressure 145/110 H 140/100 H 140/100 H Blood Pressure Mean 121 113 113 Pulse Ox 97 99 99 Oxygen Delivery Method Room Air Weight Weight: 65.816 kg Body Mass Index (BMI) 20.2 Physical Exam Const alert, oriented x3, no apparent distress and average body habitus; Negative for healthy appearing or well nourished Constitutional Narrative: Middle-aged, white male, sitting up in bed, appears older than stated age, has just walked back from the bathroom, is holding his stomach and complaining of abdominal pain but is not bent over and able to ambulate independently, does notappear toxic General Appearance: cooperative HEENT normocephalic, head/scalp atraumatic, hearing grossly normal bilaterally and moist oral mucous membranes HEENT Narrative: Mallampati is 2, no thrush, dentition is poor Eyes Eyes Narrative: Mild pale conjunctiva bilaterally, no scleral icterus Neck supple Neck Narrative: Trachea midline, no thyroid enlargement Resp normal respiratory effort, no retractions and clear to auscultation bilaterally Resp Narrative: Diminished at bases bilaterally but otherwise clear with no adventitious sounds Auscultation: Negative for rales, rhonchi or wheezes Cardio regular rhythm, S1 normal heart sound, no rub, no gallops and no clicks; Negative for regular rate, S2 normal heart sound or no murmurs Cardio Narrative: Mildly tachycardic since returning from the bathroom, 4-6 systolic murmur loudest at right upper sternal border, soft S2 GI soft to palpation; Negative for non-tender GI Narrative: Generalized tenderness with no pinpoint tenderness, no fluid wave noted, hepatomegaly, small umbilical hernia, bowel sounds are hyperactive Extremity Extremity Narrative: Trace bilateral lower extremity edema, no cyanosis or clubbing, pedal and radialpulses are 2+ Skin skin turgor normal, no jaundice, no petechiae and no mottling Skin Narrative: Pale Neuro oriented x3, moves all extremities and no focal motor deficits Neuro Narrative: Ambulates independently without difficulty Speech: speech normal Psych Psych Narrative: Affect is flat but patient makes good eye contact and interacts with me appropriately Results Lab / Micro Data 07/11/24 12:06 07/11/24 12:06 Labs: Laboratory Results - last 24 hr 07/11/24 11:53: Urine Color Yellow, Urine Clarity Clear, Urine pH 8.0, Ur Specific [place] 1.010, Urine Protein 15 H, Urine Glucose (UA) Normal, Urine Ketones Negative, Urine Occult Blood Negative, Urine Nitrite Negative, Urine Bilirubin Negative, Urine Urobilinogen Normal, Ur Leukocyte Esterase Negative, Urine RBC 0 SEEN, Urine WBC 0 SEEN, Ur Squamous Epith Cells 0 SEEN, Urine Bacteria 0 SEEN, Urine Mucus 0 SEEN, Urine Opiates Screen NEGATIVE, U Buprenorphine Qual NEGATIVE, Ur Oxycodone Screen NEGATIVE, Urine Methadone Screen NEGATIVE, Urine Fentanyl Screen NEGATIVE, Ur Barbiturates Screen PRESUMPTIVE POSITIVE, Ur Phencyclidine Scrn NEGATIVE, Ur Amphetamines Screen NEGATIVE, U Benzodiazepines Scrn NEGATIVE, Urine Cocaine Screen NEGATIVE, U Cannabinoids Screen NEGATIVE 07/11/24 12:06: WBC 5.6, RBC 2.61 L, Hgb 9.3 L, Hct 29.1 L, MCV 111.5 H, MCH 35.6 H, MCHC 32.0, RDW Std Deviation 66.4 H, RDW Coeff of Kalp[place] 16.1 H, Plt Count 155, MPV 11.0, Immature Gran % (Auto) 0.500, Neut % (Auto) 74.9 H, Lymph % (Auto) 15.4 L, [place] % (Auto) 7.7, Eos % (Auto) 0.4, Baso % (Auto) 1.1 H, Absolute Neuts (auto) 4.2, Absolute Lymphs (auto) 0.86, Nucleated RBC % 0, Platelet Estimate A, Polychromasia RARE, Anisocytosis 1+, Sodium 140, Potassium 4.6, Chloride 103, Carbon Dioxide 28.3, Anion Gap 8, BUN 10, Creatinine 1.15, Estim Creat Clear Calc 62.80, Est GFR (MDRD) Non-Af 72, BUN/Creatinine Ratio 8.9L, Glucose 137 H, Calcium 8.3, Total Bilirubin 0.34, Direct Bilirubin 0.21, AST 53 H, ALT 23, Alkaline Phosphatase 104, Total Protein 5.7 L, Albumin 2.9 L, Globulin 2.8, Lipase 6 L, Ethyl Alcohol < 10.1 Imaging Radiology Impression Abdomen/Pelvis CT 07/11/24 11:52 IMPRESSION: 1. Hepatomegaly with fatty infiltration. 2. Fecal retention in the colon consistent with constipation. 3. Umbilical hernia containing fat. 4. Bilateral pleural effusion with compressive atelectasis. Reading Location: [facility] Assessment & Plan Assessment/Plan (1) Abdominal pain: (2) Nausea & vomiting: (3) Suicidal ideation: PLAN: Plan Acute on chronic abdominal pain secondary to ileus versus partial small bowel obstruction - CT abdomen pelvis shows developing partial small bowel obstruction versus ileus with significant constipation and stable bilateral pleural effusions - NPO with IV fluids utilizing LR at 75 cc/h for 2 L - As needed antiemetics - Reglan 5 mg IV push every 6 hours x 4 doses - Fleets enema x 4 doses every 4 hours - Daily Dulcolax suppository - Does not appear to need NG tube at this time however will monitor closely for need -Would like to avoid due to previous EGD showing gastric varices - As needed Toradol for pain would like to avoid narcotics if possible due to ileus versus bowel obstruction -Will add if Toradol not effective but would like to use sparingly - General Surgery consultation is pending and Dr. Fontanez is aware - Chronic abdominal pain is likely related to chronic alcoholic pancreatitis - Hold Creon until p.o. diet can be added Creon back home p.o. diet initiated Suicidal ideation - Patient initially came in for suicidal ideation - Will implement suicide precautions - Will need crisis consult prior to being discharged once medically stable Compensated alcoholic liver cirrhosis/hepatomegaly - Potentially has some functioning liver - no marked cirrhosis type morphology noted on imaging - No significant splenomegaly - Continue home Lasix dosing of 20 mg daily - Will utilize IV fluids to avoid dehydration while NPO - Continue home Aldactone - Recommend ongoing outpatient follow-up with gastroenterology Chronic macrocytic anemia - Baseline seems to be between 8 and 10 -Hemoglobin currently stable at 9.3 - EGD performed on 06/27/2024 and showed a normal esophagus with type I isolated gastric varices without bleeding, portal hypertensive gastropathy that was biopsied and no gross lesions in the entire duodenum -Repeat CBC in a.m. History of thrombocytopenia - Resolved CKD stage II - Serum creatinine is currently 1.15 which is within his range of normal - Continue to monitor - IV fluids as ordered DM-2 - Continue home Farxiga - Continue SSI every 6 hours while NPO - Hold oral agents other than Farxiga - N.p.o. and transition to cardiac/carb controlled once diet can be initiated - Accu-Cheks as ordered CAD/essential hypertension/hyperlipidemia/chronic HFrEF -Continue home metoprolol -Continue home Aldactone -Continue home Lasix -Hold atorvastatin -Echocardiogram was performed on 07/03/2024 and showed EF of 35 to 40% with global hypokinesis, severe concentric LVH, moderate to severe bioprosthetic aortic valve stenosis with an aortic valve area estimated at 1.1 cm? and a mean aortic valve gradient of 40.2 mmHg, trivial mitral valve regurgitation and impaired relaxation of the LV Severe aortic stenosis - Patient with history of bioprosthetic valve and previous mechanical replacement then porcine bioprosthetic replacement - Will need outpatient evaluation for repeat aortic valve replacement - Will need ALBERT and probable referral to a [facility] - Outpatient follow-up here with cardiology after discharge Diabetic neuropathy - Continue home gabapentin GERD - Continue Protonix but IV p.o. twice daily - Transition to oral Protonix p.o. twice daily 40 mg once able to start p.o. intake consistently without difficulty History of alcohol abuse - patient without any current significant alcohol use -Hold thiamine and folate for now History of sick sinus syndrome - Continue home metoprolol - Previous pacemaker History of AAA/thoracic aortic aneurysm - Had thoracic dissection and was treated at [facility] History of heroin abuse - Remote - patient states he has been clean for approximately 10 years Tobacco abuse - Encouraged cessation - nicotine patch replacement available Medical noncompliance - Patient continues to be noncompliant with his medications - His last admission was related to medical noncompliance and he states has not been taking his medicines at this time either - States he does not know why when I asked him why he is not taking them - I suspect there is a component of mental health leading to this decision DVT prophylaxis -Enoxaparin 40 daily CODE STATUS - Full code Charges/Coding Visit Charges Inpatient E&M: 92766 Init Hosp L2 07/11/24 2736 <Electronically signed by Melonie Rj DO> Cosigner Signature (if applicable): CC: ALAN Wagner; Dr. Melonie De La Rosa, DO~ Signed [facility] Work Phone: Hospital course Narrative No data available for this section [facility] Hospital Discharge instructions No data available for this section [facility] Phone[facility] Work Phone: [facility] Work Phone: Hospital Discharge instructions Additional Instructions Plenty of fluids and rest. Probably suggest stopping smoking and decreasing your alcohol use. Zofran as needed for nausea. Call and follow-up with your GI doctor soon as possible. If increasing pain, fever, intractable vomiting or feeling worse.[facility] Work Phone: Progress note No data available for this section [facility] Reason for referral (narrative)* Outpatient Procedure (Routine) - New Request Specialty Diagnoses / Procedures Referred By Jonathan moreira Referred To Contact [facility] Diagnoses Anemia, unspecified type Weight loss Chronic pancreatitis, unspecified pancreatitis type (HCC) Epigastric pain Procedures EGD DIAGNOSTIC EGD DIAGNOSTIC ESOPHAGOGASTRODUODENOSCO PY TRANSORAL DIAGNOSTIC Susana Ramirez APRN.SPLUNK D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 [address] [place] [address] [facility] [address] [place] [address] Referral ID Status Reason Start Date Expiration Date Visits Requested Visits Authorized [id number] New Request Auto-Generat ed Referral 4 12/23/2024 1 1 * Outpatient Procedure (Routine) - New Request Specialty Diagnoses / Procedures Referred By Jonathan moreira Referred To Contact [facility] Diagnoses Anemia, unspecified type Weight loss Procedures COLONOSCOPY DIAGNOSTIC COLONOSCOPY DIAGNOSTIC COLONOSCOPY FLX DX W/COLLJ SPEC WHEN PFRMD Susana Ramirez APRN.SPLUNK D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 [address] [place] [address] [facility] [address] [place] [id number] Referral ID Status Reason Start Date Expiration Date Visits Requested Visits Authorized [id number] New Request Auto-Generat ed Referral 12/23/2024 1 [facility]No reason for referral information availableWProvidence Hospital Work Phone: Reason for visit Narrative* Outpatient Procedure (Routine) - Closed Specialty Diagnoses / Procedures Referred By Contac t Referred To Contact [facility] Diagnoses Anemia, unspecified type Weight loss Chronic pancreatitis, unspecified pancreatitis type (HCC) Epigastric pain Procedures EGD DIAGNOSTIC EGD DIAGNOSTIC EGD DIAGNOSTIC ESOPHAGOGASTRODUODENOSCO PY TRANSORAL DIAGNOSTIC Susana Ramirez APRN.SPLUNK D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 [address] [place] [address] Phone: tel: fax: [facility] [address] [place] [id number] Referral ID Status Reason Start Date Expiration Date V isits Requested Visits Authorized [id number] Closed Auto-Generate d Referral 12/24/2023 12/23/2024 1 1 [facility] Summary Purpose Family History No Family History Records Found Relationship Condition Age at Onset Recorded Date/T kaila father Coronary artery disease Unknown mother Dementia Unknown Advance Directives No Advanced Directives Records Found Advance Directive Response Recorded Date/ Time Advance Directives No January 09, 2017 2:00pm Living Will No May 04, 2021 1:22pm Power of Coloring Machine Operator No May 04 1:22pm Advance Directive Response Recorded Date/ Time Advance Directives No January 09, 2017 2:00pm Living Will No May 04, 2021 3:44pm Power of Coloring Machine Operator No May 04 3:44pm Advance Directive Response Recorded Date/ Time Advance Directives No January 09, 2017 2:00pm Living Will No May 29, 2021 7:13pm Power of Coloring Machine Operator No May 29 7:13pm Advance Directive Response Recorded Date/ Time Advance Directives No January 09, 2017 2:00pm Living Will No May 29, 2021 10:10pm Power of Coloring Machine Operator No May 29 10:10pm Advance Directive Response Recorded Date/ Time Advance Directives No January 09, 2017 2:00pm Living Will No September 30 2:09pm Power of Coloring Machine Operator No September 30 2:09pm Advance Directive Response Recorded Date/ Time Advance Directives No January 09, 2017 2:00pm Living Will No October 06 12:26pm Power of Coloring Machine Operator No October 06 12:26pm Advance Directive Response Recorded Date/ Time Name of Medical Power of Coloring Machine Operator TERRA MELENDREZ November 05, 2021 7:17pm Advance Directives No January 09, 2017 2:00pm Living Will Yes November 05, 2021 7:17pm Power of Coloring Machine Operator Yes October 7:17pm Advance Directive Response Recorded Date/ Time Name of Medical Power of Coloring Machine Operator TERRA MELENDREZ November 05, 2021 6:17pm Name of Medical Power of Coloring Machine Operator Terra Melendrez November 11, 2021 3:27pm Name of Medical Power of Coloring Machine Operator hammad, daughter February 01, 2022 7:05pm Advance Directives No January 09, 2017 1:00pm Living Will Yes February 01 022 7:05pm Power of Coloring Machine Operator Yes February 01, 2022 7:05pm Advance Directive Response Recorded Date/ Time Name of Medical Power of Coloring Machine Operator TERRA MELENDREZ November 05, 2021 6:17pm Name of Medical Power of Coloring Machine Operator Terragiancarlo Melendrez November 11, 2021 3:27pm Name of Medical Power of Coloring Machine Operator [email or web address] February 01, 2022 9:39pm Advance Directives No January 09, 2017 1:00pm Living Will Yes February 01, 022 9:39pm Power of Coloring Machine Operator Yes February 01, 2022 9:39pm Advance Directive Response Recorded Date/ Time Name of Medical Power of Coloring Machine Operator [email or web address] February 01, 2022 9:39pm Advance Directives No January 09, 2017 1:00pm Living Will No March 21 023 6:13pm Power of Coloring Machine Operator No March 21, 2022 6:13pm Advance Directive Response Recorded Date/ Time Name of Medical Power of Coloring Machine Operator [email or web address] February 01, 2022 9:39pm Name of Medical Power of Coloring Machine Operator pt unsure March 21, 2022 7:51pm Advance Directives No January 09, 2017 1:00pm Living Will Yes March 21 023 7:51pm Power of Coloring Machine Operator Yes March 21, 2022 7:51pm Advance Directive Response Recorded Date/ Time Advance Directives No January 09, 2017 2:00pm Living Will No November 01, 2022 8:05pm Power of Coloring Machine Operator No October 8:05pm Advance Directive Response Recorded Date/ Time Advance Directives No January 09, 2017 2:00pm Living Will No April 20, 2023 11:35am Power of Coloring Machine Operator No April 19 11:35am Advance Directive Response Recorded Date/ Time Advance Directives No January 09, 2017 2:00pm Living Will No April 20, 2023 5:00pm Power of Coloring Machine Operator No April 19 5:00pm Advance Directive Response Recorded Date/ Time Advance Directives No January 09, 2017 2:00pm Living Will No May 09, 2023 1:46pm Power of Coloring Machine Operator No May 08 1:46pm Advance Directive Response Recorded Date/ Time Advance Directives No January 09, 2017 2:00pm Living Will No May 09, 2023 10:12pm Power of Coloring Machine Operator No May 08 10:12pm Advance Directive Response Recorded Date/ Time Do you have a Healthcare Power of Coloring Machine Operator? Yes June 25, 2024 4:17pm Advance Directives No January 09, 2017 2:00pm Advance Directive Response Recorded Date/ Time Do you have a Healthcare Power of Coloring Machine Operator? Yes June 26, 2024 12:18am Advance Directives No January 09, 2017 2:00pm Advance Directive Response Recorded Date/ Time Do you have a Healthcare Power of Coloring Machine Operator? Yes June 26, 2024 12:18am Do you have a Healthcare Power of Coloring Machine Operator? Yes June 30, 2024 8:46pm Advance Directives No January 09, 2017 2:00pm Advance Directive Response Recorded Date/ Time Do you have a Healthcare Power of Coloring Machine Operator? Yes June 26, 2024 12:18am Do you have a Healthcare Power of Coloring Machine Operator? Yes June 30, 2024 8:46pm Do you have a Healthcare Power of Coloring Machine Operator? No July 11, 2024 4:12pm Advance Directives No January 09, 2017 2:00pm Advance Directive Response Recorded Date/ Time Do you have a Healthcare Power of Coloring Machine Operator? Yes June 26, 2024 12:18am Do you have a Healthcare Power of Coloring Machine Operator? Yes June 30, 2024 8:46pm Do you have a Healthcare Power of Coloring Machine Operator? No July 11, 2024 11:40am Advance Directives No January 09, 2017 2:00pm Advance Directive Response Recorded Date/ Time Do you have a Healthcare Power of Coloring Machine Operator? Yes June 26, 2024 12:18am Do you have a Healthcare Power of Coloring Machine Operator? Yes June 30, 2024 8:46pm Do you have a Healthcare Power of Coloring Machine Operator? No July 11, 2024 4:12pm Do you have a Healthcare Power of Coloring Machine Operator? Yes August 01, 2024 2:20pm Advance Directives No January 09, 2017 2:00pm Advance Directive Response Recorded Date/ Time Do you have a Healthcare Power of Coloring Machine Operator? Yes June 26, 2024 12:18am Do you have a Healthcare Power of Coloring Machine Operator? Yes June 30, 2024 8:46pm Do you have a Healthcare Power of Coloring Machine Operator? No July 11, 2024 4:12pm Do you have a Healthcare Power of Coloring Machine Operator? No August 01, 2024 10:05pm Advance Directives No January 09, 2017 2:00pm Chief Complaint and Reason for Visit Chief Complaint CHEST PAIN Reason for Visit Chest pain Chief Complaint CHEST PAIN CHEST PAIN CHEST PAIN Reason for Visit Chest pain Chief Complaint CHEST PAIN CHEST PAIN CHEST PAIN CHEST PAIN SUICIDAL ETHOH WITHDRAWL ETHOH WITHDRAWL Reason for Visit Chest pain Alcohol intoxication Chief Complaint CHEST PAIN CHEST PAIN CHEST PAIN CHEST PAIN SUICIDAL ETHOH WITHDRAWL ETHOH WITHDRAWL ETHOH WITHDRAWL ETHOH WITHDRAWL Reason for Visit Chest pain Alcohol dependence Alcohol withdrawal Tremors of nervous system Chief Complaint remote PPM f/u CHEST PAIN Reason for Visit Non-sustained ventri cular tachycardia Cardiac pacemaker in situ Sick sinus syndrome Chief Complaint remote PPM f/u CHEST PAIN SI, ETOH INTOXICATION Reason for Visit Non-sustained ventri cular tachycardia Cardiac pacemaker in situ Sick sinus syndrome Chief Complaint remote PPM f/u remote PPM f/u CHEST PAIN SI, ETOH INTOXICATION ETOH ABUSE & DETOX, HYPOKALEMIA ETOH ABUSE & DETOX, HYPOKALEMIA Reason for Visit Non-sustained ventri cular tachycardia Cardiac pacemaker in situ Sick sinus syndrome Acute hypokalemia ETOH abuse History of diabetes mellitus Hx of hypercholesterolemia Hypokalemia Withdrawn from alcohol detoxification program Diabetes mellitus, type II HTN (hypertension) Tobacco use Chief Complaint SI, ETOH INTOXICATIO N ETOH ABUSE & DETOX, HYPOKALEMIA DESIRE FOR DETOXIFICATION DESIRE FOR DETOXIFICATION DESIRE FOR DETOXIFICATION DESIRE FOR DETOXIFICATION ETOH WITHDRAWAL ETOH WITHDRAWAL ETOH WITHDRAWAL ETOH WITHDRAWAL ETOH WITHDRAWL Reason for Visit Acute hypokalemia ETOH abuse HTN (hypertension) Hypokalemia ETOH abuse Alcohol withdrawal Desire for detoxification Acute hypokalemia Alcohol withdrawal Desire for detoxification ETOH abuse Nausea & vomiting Chief Complaint ETOH ABUSE & DETOX, HYPOKALEMIA DESIRE FOR DETOXIFICATION DESIRE FOR DETOXIFICATION DESIRE FOR DETOXIFICATION DESIRE FOR DETOXIFICATION ETOH WITHDRAWAL ETOH WITHDRAWAL ETOH WITHDRAWAL ETOH WITHDRAWAL ETOH WITHDRAWL ETOH WITHDRAWL Reason for Visit Acute hypokalemia ETOH abuse HTN (hypertension) Hypokalemia ETOH abuse Alcohol withdrawal Desire for detoxification Acute hypokalemia Alcohol withdrawal Desire for detoxification ETOH abuse Nausea & vomiting Chief Complaint ETOH WITHDRAWL ETOH WITHDRAWL ETOH WITHDRAWL ETOH WITHDRAWL ACUTE ETOH WITHDRAWAL ACUTE ETOH WITHDRAWAL Reason for Visit Alcohol withdrawal Nausea & vomiting Acute dehydration Admitted to alcohol detoxification center Alcohol abuse Alcohol withdrawal History of diabetes mellitus Chief Complaint ETOH WITHDRAWL ETOH WITHDRAWL ETOH WITHDRAWL ETOH WITHDRAWL ACUTE ETOH WITHDRAWAL ACUTE ETOH WITHDRAWAL ACUTE ETOH WITHDRAWAL ACUTE ETOH WITHDRAWAL Reason for Visit Alcohol withdrawal Nausea & vomiting Acute dehydration Admitted to alcohol detoxification center Alcohol abuse Alcohol withdrawal History of diabetes mellitus Chief Complaint etoh, hyperglycemia abd pain, blood in stool, nausea/vomitting Chief Complaint Pacer Check Remote Pacer Check Remote abd pain, detox Reason for Visit Abdominal ascites Alcohol abuse Alcohol dependence Alcoholic hepatitis Gastric wall thickening Chronic pancreatitis Chief Complaint Pacer Check Remote Pacer Check Remote Pacer Check Remote abd pain, detox abd pain, detox abd pain, detox abd pain, detox abd pain, detox abd pain, detox abd pain, detox abd pain, detox Reason for Visit Abdominal ascites Alcohol abuse Alcohol dependence Alcoholic hepatitis Gastric wall thickening Chronic pancreatitis Chief Complaint Pacer Check Remote Pacer Check Remote Pacer Check Remote abd pain, detox abd pain, detox abd pain, detox abd pain, detox abd pain, detox abd pain, detox abd pain, detox abd pain, detox abd pain, detox ACUTE CYSTITIS, WITHOUT HEMATURIA & IMPENDING Reason for Visit Acute cystitis witho ut hematuria Acute UTI Alcohol withdrawal Chronic pancreatitis due to chronic alcoholism Hypoxia Intractable abdominal pain Medically noncompliant Pleural effusion Protein-calorie malnutrition, severe Chronic alcohol abuse Chief Complaint Pacer Check Remote Pacer Check Remote abd pain, detox abd pain, detox abd pain, detox abd pain, detox abd pain, detox abd pain, detox abd pain, detox abd pain, detox abd pain, detox ACUTE CYSTITIS, WITHOUT HEMATURIA & IMPENDING ACUTE CYSTITIS, WITHOUT HEMATURIA & IMPENDING ACUTE CYSTITIS, WITHOUT HEMATURIA & IMPENDING ACUTE CYSTITIS, WITHOUT HEMATURIA & IMPENDING ACUTE CYSTITIS, WITHOUT HEMATURIA & IMPENDING ACUTE CYSTITIS, WITHOUT HEMATURIA & IMPENDING ACUTE CYSTITIS, WITHOUT HEMATURIA & IMPENDING ACUTE CYSTITIS, WITHOUT HEMATURIA & IMPENDING ACUTE CYSTITIS, WITHOUT HEMATURIA & IMPENDING ACUTE CYSTITIS, WITHOUT HEMATURIA & IMPENDING ACUTE CYSTITIS, WITHOUT HEMATURIA & IMPENDING ACUTE CYSTITIS, WITHOUT HEMATURIA & IMPENDING ACUTE CYSTITIS, WITHOUT HEMATURIA & IMPENDING ACUTE CYSTITIS, WITHOUT HEMATURIA & IMPENDING ACUTE CYSTITIS, WITHOUT HEMATURIA & IMPENDING ACUTE CYSTITIS, WITHOUT HEMATURIA & IMPENDING Reason for Visit Acute cystitis witho ut hematuria Acute UTI MALIK (acute kidney injury) Alcohol withdrawal Chronic pancreatitis due to chronic alcoholism Hypoxia Intractable abdominal pain Medically noncompliant Pleural effusion Protein-calorie malnutrition, severe Sepsis Chronic alcohol abuse HTN (hypertension) Chief Complaint Admit Date Pacer Check Remote April 13, 2024 4:26 pm CRITICAL HYPOKALEMIA, LACTIC ACIDOSIS Ma y 2024 10:15pm Reason for Visit Admit Date Adverse drug reaction June 25, 2024 10: 15pm Ascites due to alcoholic cirrhosis June [id number] 10:15pm Hypokalemia June 25, 2024 10:15 pm Lactic acidosis June 25, 2024 10:15 pm Chronic alcohol abuse June 25, 2024 10: 15pm Chronic diarrhea June 25, 2024 10:15 pm Chief Complaint Admit Date Pacer Check Remote April 13, 2024 4:26 pm CRITICAL HYPOKALEMIA, LACTIC ACIDOSIS Ma y 2024 10:15pm CRITICAL HYPOKALEMIA, LACTIC ACIDOSIS Ma y 2024 7:34am CRITICAL HYPOKALEMIA, LACTIC ACIDOSIS Ma y 2024 5:58pm CRITICAL HYPOKALEMIA, LACTIC ACIDOSIS Ma y 2024 7:37am CRITICAL HYPOKALEMIA, LACTIC ACIDOSIS Ma y 2024 2:44pm CRITICAL HYPOKALEMIA, LACTIC ACIDOSIS Ma y 2024 12:00pm Reason for Visit Admit Date Adverse drug reaction June 25, 2024 10: 15pm Ascites due to alcoholic cirrhosis June [id number] 10:15pm Hypokalemia June 25, 2024 10:15 pm Lactic acidosis June 25, 2024 10:15 pm Macrocytosis associated with alcohol June 25, 2024 10:15pm Thrombocytopenia June 25, 2024 10:15 pm Chronic alcohol abuse June 25, 2024 10: 15pm Chronic diarrhea June 25, 2024 10:15 pm Chronic pancreatitis June 25, 2024 10:1 5pm Chief Complaint Admit Date Pacer Check Remote April 13, 2024 4:26 pm CRITICAL HYPOKALEMIA, LACTIC ACIDOSIS Ma y 2024 10:15pm CRITICAL HYPOKALEMIA, LACTIC ACIDOSIS Ma y 2024 7:34am CRITICAL HYPOKALEMIA, LACTIC ACIDOSIS Ma y 2024 5:58pm CRITICAL HYPOKALEMIA, LACTIC ACIDOSIS Ma y 2024 7:37am CRITICAL HYPOKALEMIA, LACTIC ACIDOSIS Ma y 2024 2:44pm CRITICAL HYPOKALEMIA, LACTIC ACIDOSIS Ma y 2024 12:00pm CRITICAL HYPOKALEMIA, LACTIC ACIDOSIS Ma y 2024 4:50pm PLEURAL EFFUSIONS AND HYPOXIA WITH WORSE ARGENIS June 30, 2024 7:31pm PLEURAL EFFUSIONS AND HYPOXIA WITH WORSE ARGENIS June 30, 2024 7:47pm PLEURAL EFFUSIONS AND HYPOXIA WITH WORSE ARGENIS July 01, 2024 1:45pm PLEURAL EFFUSIONS AND HYPOXIA WITH WORSE ARGENIS July 02, 2024 7:12am PLEURAL EFFUSIONS AND HYPOXIA WITH WORSE ARGENIS July 03, 2024 10:32am PLEURAL EFFUSIONS AND HYPOXIA WITH WORSE ARGENIS July 03, 2024 11:27am PLEURAL EFFUSIONS AND HYPOXIA WITH WORSE ARGENIS July 04, 2024 10:30am PLEURAL EFFUSIONS AND HYPOXIA WITH WORSE ARGENIS July 04, 2024 11:35am PLEURAL EFFUSIONS AND HYPOXIA WITH WORSE ARGENIS July 04, 2024 5:41pm PLEURAL EFFUSIONS AND HYPOXIA WITH WORSE ARGENIS July 05, 2024 11:19am PLEURAL EFFUSIONS AND HYPOXIA WITH WORSE ARGENIS July 06, 2024 10:38am Reason for Visit Admit Date Adverse drug reaction June 25, 2024 10: 15pm Hypokalemia June 25, 2024 10:15 pm Lactic acidosis June 25, 2024 10:15 pm Ascites due to alcoholic cirrhosis June [id number] 10:15pm Chronic alcohol abuse June 25, 2024 10: 15pm Chronic diarrhea June 25, 2024 10:15 pm Chronic pancreatitis June 25, 2024 10:1 5pm Macrocytosis associated with alcohol June 25, 2024 10:15pm Thrombocytopenia June 25, 2024 10:15 pm Abdominal ascites June 30, 2024 7:47p m Acute HFrEF (heart failure with reduced ejection fraction) June 30, 2024 7:47pm MALIK (acute kidney injury) June 30, 2024 7:47pm Conjunctivitis June 30, 2024 7:47p m Elevated troponin June 30, 2024 7:47p m Hypoxia June 30, 2024 7:47p m Malnutrition June 30, 2024 7:47p m Medically noncompliant June 30, 2024 7: 47pm Pancytopenia June 30, 2024 7:47p m Pleural effusion June 30, 2024 7:47p m Respiratory insufficiency June 30, 2024 7:47pm Volume overload June 30, 2024 7:47p m Ascites due to alcoholic cirrhosis June [id number] 7:47pm Chronic pancreatitis June 30, 2024 7:47 pm Thrombocytopenia June 30, 2024 7:47p m Chief Complaint Admit Date Pacer Check Remote April 13, 2024 4:26 pm CRITICAL HYPOKALEMIA, LACTIC ACIDOSIS Florentino y 2024 10:15pm CRITICAL HYPOKALEMIA, LACTIC ACIDOSIS Ma y 2024 7:34am CRITICAL HYPOKALEMIA, LACTIC ACIDOSIS Ma y 2024 5:58pm CRITICAL HYPOKALEMIA, LACTIC ACIDOSIS Florentino y 2024 7:37am CRITICAL HYPOKALEMIA, LACTIC ACIDOSIS Ma y 2024 2:44pm CRITICAL HYPOKALEMIA, LACTIC ACIDOSIS Ma y 2024 12:00pm CRITICAL HYPOKALEMIA, LACTIC ACIDOSIS Ma y 2024 4:50pm PLEURAL EFFUSIONS AND HYPOXIA WITH WORSE ARGENIS June 30, 2024 7:31pm PLEURAL EFFUSIONS AND HYPOXIA WITH WORSE ARGENIS June 30, 2024 7:47pm PLEURAL EFFUSIONS AND HYPOXIA WITH WORSE ARGENIS July 01, 2024 1:45pm PLEURAL EFFUSIONS AND HYPOXIA WITH WORSE ARGENIS July 02, 2024 7:12am PLEURAL EFFUSIONS AND HYPOXIA WITH WORSE ARGENIS July 03, 2024 10:32am PLEURAL EFFUSIONS AND HYPOXIA WITH WORSE ARGENIS July 03, 2024 11:27am PLEURAL EFFUSIONS AND HYPOXIA WITH WORSE ARGENIS July 04, 2024 10:30am PLEURAL EFFUSIONS AND HYPOXIA WITH WORSE ARGENIS July 04, 2024 11:35am PLEURAL EFFUSIONS AND HYPOXIA WITH WORSE ARGENIS July 04, 2024 5:41pm PLEURAL EFFUSIONS AND HYPOXIA WITH WORSE ARGENIS July 05, 2024 11:19am PLEURAL EFFUSIONS AND HYPOXIA WITH WORSE ARGENIS July 06, 2024 10:38am MENTAL HEALTH July 11, 2024 2:05p m ILEUS VS PSBO July 11, 2024 2:06p m ILEUS VS PSBO July 12, 2024 7:15a m ILEUS VS PSBO July 12, 2024 9:27a m ILEUS VS PSBO July 13, 2024 8:08a m ILEUS VS PSBO July 13, 2024 10:23 am ILEUS VS PSBO July 14, 2024 8:39a m Reason for Visit Admit Date Adverse drug reaction June 25, 2024 10: 15pm Hypokalemia June 25, 2024 10:15 pm Lactic acidosis June 25, 2024 10:15 pm Ascites due to alcoholic cirrhosis June [id number] 10:15pm Chronic alcohol abuse June 25, 2024 10: 15pm Chronic diarrhea June 25, 2024 10:15 pm Chronic pancreatitis June 25, 2024 10:1 5pm Macrocytosis associated with alcohol June 25, 2024 10:15pm Thrombocytopenia June 25, 2024 10:15 pm Acute HFrEF (heart failure with reduced ejection fraction) June 30, 2024 7:47pm Abdominal ascites June 30, 2024 7:47p m MALIK (acute kidney injury) June 30, 2024 7:47pm Conjunctivitis June 30, 2024 7:47p m Elevated troponin June 30, 2024 7:47p m Hypoxia June 30, 2024 7:47p m Pleural effusion June 30, 2024 7:47p m Respiratory insufficiency June 30, 2024 7:47pm Volume overload June 30, 2024 7:47p m Ascites due to alcoholic cirrhosis June [id number] 7:47pm Chronic pancreatitis June 30, 2024 7:47 pm Malnutrition June 30, 2024 7:47p m Medically noncompliant June 30, 2024 7: 47pm Pancytopenia June 30, 2024 7:47p m Thrombocytopenia June 30, 2024 7:47p m Abdominal pain July 11, 2024 2:06p m Headache July 11, 2024 2:06p m Nausea July 11, 2024 2:06p m Nausea & vomiting July 11, 2024 2:06p m Partial bowel obstruction July 11, 2024 2:06pm Suicidal ideation July 11, 2024 2:06p m Chief Complaint Admit Date Pacer Check Remote April 13, 2024 4:26 pm CRITICAL HYPOKALEMIA, LACTIC ACIDOSIS Ma y 2024 10:15pm CRITICAL HYPOKALEMIA, LACTIC ACIDOSIS Ma y 2024 7:34am CRITICAL HYPOKALEMIA, LACTIC ACIDOSIS Ma y 2024 5:58pm CRITICAL HYPOKALEMIA, LACTIC ACIDOSIS Ma y 2024 7:37am CRITICAL HYPOKALEMIA, LACTIC ACIDOSIS Ma y 2024 2:44pm CRITICAL HYPOKALEMIA, LACTIC ACIDOSIS Ma y 2024 12:00pm CRITICAL HYPOKALEMIA, LACTIC ACIDOSIS Ma y 2024 4:50pm PLEURAL EFFUSIONS AND HYPOXIA WITH WORSE ARGENIS June 30, 2024 7:31pm PLEURAL EFFUSIONS AND HYPOXIA WITH WORSE ARGENIS June 30, 2024 7:47pm PLEURAL EFFUSIONS AND HYPOXIA WITH WORSE ARGENIS July 01, 2024 1:45pm PLEURAL EFFUSIONS AND HYPOXIA WITH WORSE ARGENIS July 02, 2024 7:12am PLEURAL EFFUSIONS AND HYPOXIA WITH WORSE ARGENIS July 03, 2024 10:32am PLEURAL EFFUSIONS AND HYPOXIA WITH WORSE ARGENIS July 03, 2024 11:27am PLEURAL EFFUSIONS AND HYPOXIA WITH WORSE ARGENIS July 04, 2024 10:30am PLEURAL EFFUSIONS AND HYPOXIA WITH WORSE ARGENIS July 04, 2024 11:35am PLEURAL EFFUSIONS AND HYPOXIA WITH WORSE ARGENIS July 04, 2024 5:41pm PLEURAL EFFUSIONS AND HYPOXIA WITH WORSE ARGENIS July 05, 2024 11:19am PLEURAL EFFUSIONS AND HYPOXIA WITH WORSE ARGENIS July 06, 2024 10:38am MENTAL HEALTH July 11, 2024 2:05p m ILEUS VS PSBO July 11, 2024 2:06p m Reason for Visit Admit Date Adverse drug reaction June 25, 2024 10: 15pm Hypokalemia June 25, 2024 10:15 pm Lactic acidosis June 25, 2024 10:15 pm Ascites due to alcoholic cirrhosis June [id number] 10:15pm Chronic alcohol abuse June 25, 2024 10: 15pm Chronic diarrhea June 25, 2024 10:15 pm Chronic pancreatitis June 25, 2024 10:1 5pm Macrocytosis associated with alcohol June 25, 2024 10:15pm Thrombocytopenia June 25, 2024 10:15 pm Abdominal ascites June 30, 2024 7:47p m Acute HFrEF (heart failure with reduced ejection fraction) June 30, 2024 7:47pm MALIK (acute kidney injury) June 30, 2024 7:47pm Conjunctivitis June 30, 2024 7:47p m Elevated troponin June 30, 2024 7:47p m Hypoxia June 30, 2024 7:47p m Malnutrition June 30, 2024 7:47p m Medically noncompliant June 30, 2024 7: 47pm Pancytopenia June 30, 2024 7:47p m Pleural effusion June 30, 2024 7:47p m Respiratory insufficiency June 30, 2024 7:47pm Volume overload June 30, 2024 7:47p m Ascites due to alcoholic cirrhosis June [id number] 7:47pm Chronic pancreatitis June 30, 2024 7:47 pm Thrombocytopenia June 30, 2024 7:47p m Abdominal pain July 11, 2024 2:06p m Headache July 11, 2024 2:06p m Nausea July 11, 2024 2:06p m Nausea & vomiting July 11, 2024 2:06p m Partial bowel obstruction July 11, 2024 2:06pm Suicidal ideation July 11, 2024 2:06p m Chief Complaint Admit Date Pacer Check Remote April 13, 2024 4:26 pm CRITICAL HYPOKALEMIA, LACTIC ACIDOSIS Ma y 2024 10:15pm CRITICAL HYPOKALEMIA, LACTIC ACIDOSIS Ma y 2024 7:34am CRITICAL HYPOKALEMIA, LACTIC ACIDOSIS Ma y 2024 5:58pm CRITICAL HYPOKALEMIA, LACTIC ACIDOSIS Ma y 2024 7:37am CRITICAL HYPOKALEMIA, LACTIC ACIDOSIS Ma y 2024 2:44pm CRITICAL HYPOKALEMIA, LACTIC ACIDOSIS Ma y 2024 12:00pm CRITICAL HYPOKALEMIA, LACTIC ACIDOSIS Ma y 2024 4:50pm PLEURAL EFFUSIONS AND HYPOXIA WITH WORSE ARGENIS June 30, 2024 7:31pm PLEURAL EFFUSIONS AND HYPOXIA WITH WORSE ARGENIS June 30, 2024 7:47pm PLEURAL EFFUSIONS AND HYPOXIA WITH WORSE ARGENIS July 01, 2024 1:45pm PLEURAL EFFUSIONS AND HYPOXIA WITH WORSE ARGENIS July 02, 2024 7:12am PLEURAL EFFUSIONS AND HYPOXIA WITH WORSE ARGENIS July 03, 2024 10:32am PLEURAL EFFUSIONS AND HYPOXIA WITH WORSE ARGENIS July 03, 2024 11:27am PLEURAL EFFUSIONS AND HYPOXIA WITH WORSE ARGENIS July 04, 2024 10:30am PLEURAL EFFUSIONS AND HYPOXIA WITH WORSE ARGENIS July 04, 2024 11:35am PLEURAL EFFUSIONS AND HYPOXIA WITH WORSE ARGENIS July 04, 2024 5:41pm PLEURAL EFFUSIONS AND HYPOXIA WITH WORSE ARGENIS July 05, 2024 11:19am PLEURAL EFFUSIONS AND HYPOXIA WITH WORSE ARGENIS July 06, 2024 10:38am MENTAL HEALTH July 11, 2024 2:05p m ILEUS VS PSBO July 11, 2024 2:06p m ILEUS VS PSBO July 12, 2024 7:15a m ILEUS VS PSBO July 12, 2024 9:27a m ILEUS VS PSBO July 13, 2024 8:08a m ILEUS VS PSBO July 13, 2024 10:23 am ILEUS VS PSBO July 14, 2024 8:39a m Pacer Check Remote July 20, 2024 9:33 am Chief Complaint Admit Date Pacer Check Remote April 13, 2024 4:26 pm CRITICAL HYPOKALEMIA, LACTIC ACIDOSIS Ma y 2024 10:15pm CRITICAL HYPOKALEMIA, LACTIC ACIDOSIS Ma y 2024 7:34am CRITICAL HYPOKALEMIA, LACTIC ACIDOSIS Ma y 2024 5:58pm CRITICAL HYPOKALEMIA, LACTIC ACIDOSIS Ma y 2024 7:37am CRITICAL HYPOKALEMIA, LACTIC ACIDOSIS Ma y 2024 2:44pm CRITICAL HYPOKALEMIA, LACTIC ACIDOSIS Ma y 2024 12:00pm CRITICAL HYPOKALEMIA, LACTIC ACIDOSIS Ma y 2024 4:50pm PLEURAL EFFUSIONS AND HYPOXIA WITH WORSE ARGENIS June 30, 2024 7:31pm PLEURAL EFFUSIONS AND HYPOXIA WITH WORSE ARGENIS June 30, 2024 7:47pm PLEURAL EFFUSIONS AND HYPOXIA WITH WORSE ARGENIS July 01, 2024 1:45pm PLEURAL EFFUSIONS AND HYPOXIA WITH WORSE ARGENIS July 02, 2024 7:12am PLEURAL EFFUSIONS AND HYPOXIA WITH WORSE ARGENIS July 03, 2024 10:32am PLEURAL EFFUSIONS AND HYPOXIA WITH WORSE ARGENIS July 03, 2024 11:27am PLEURAL EFFUSIONS AND HYPOXIA WITH WORSE ARGENIS July 04, 2024 10:30am PLEURAL EFFUSIONS AND HYPOXIA WITH WORSE ARGENIS July 04, 2024 11:35am PLEURAL EFFUSIONS AND HYPOXIA WITH WORSE ARGENIS July 04, 2024 5:41pm PLEURAL EFFUSIONS AND HYPOXIA WITH WORSE ARGENIS July 05, 2024 11:19am PLEURAL EFFUSIONS AND HYPOXIA WITH WORSE ARGENIS July 06, 2024 10:38am MENTAL HEALTH July 11, 2024 2:05p m ILEUS VS PSBO July 11, 2024 2:06p m ILEUS VS PSBO July 12, 2024 7:15a m ILEUS VS PSBO July 12, 2024 9:27a m ILEUS VS PSBO July 13, 2024 8:08a m ILEUS VS PSBO July 13, 2024 10:23 am ILEUS VS PSBO July 14, 2024 8:39a m Pacer Check Remote July 20, 2024 9:33 am HYPOXIA, HFrEF EXACERBATION August 01, 2 025 8:44pm Chief Complaint Admit Date Pacer Check Remote April 13, 2024 4:26 pm CRITICAL HYPOKALEMIA, LACTIC ACIDOSIS Ma y 2024 10:15pm CRITICAL HYPOKALEMIA, LACTIC ACIDOSIS Ma y 2024 7:34am CRITICAL HYPOKALEMIA, LACTIC ACIDOSIS Ma y 2024 5:58pm CRITICAL HYPOKALEMIA, LACTIC ACIDOSIS Ma y 2024 7:37am CRITICAL HYPOKALEMIA, LACTIC ACIDOSIS Ma y 2024 2:44pm CRITICAL HYPOKALEMIA, LACTIC ACIDOSIS Ma y 2024 12:00pm CRITICAL HYPOKALEMIA, LACTIC ACIDOSIS Ma y 2024 4:50pm PLEURAL EFFUSIONS AND HYPOXIA WITH WORSE ARGENIS June 30, 2024 7:31pm PLEURAL EFFUSIONS AND HYPOXIA WITH WORSE ARGENIS June 30, 2024 7:47pm PLEURAL EFFUSIONS AND HYPOXIA WITH WORSE ARGENIS July 01, 2024 1:45pm PLEURAL EFFUSIONS AND HYPOXIA WITH WORSE ARGENIS July 02, 2024 7:12am PLEURAL EFFUSIONS AND HYPOXIA WITH WORSE ARGENIS July 03, 2024 10:32am PLEURAL EFFUSIONS AND HYPOXIA WITH WORSE ARGENIS July 03, 2024 11:27am PLEURAL EFFUSIONS AND HYPOXIA WITH WORSE ARGENIS July 04, 2024 10:30am PLEURAL EFFUSIONS AND HYPOXIA WITH WORSE ARGENIS July 04, 2024 11:35am PLEURAL EFFUSIONS AND HYPOXIA WITH WORSE ARGENIS July 04, 2024 5:41pm PLEURAL EFFUSIONS AND HYPOXIA WITH WORSE ARGENIS July 05, 2024 11:19am PLEURAL EFFUSIONS AND HYPOXIA WITH WORSE ARGENIS July 06, 2024 10:38am MENTAL HEALTH July 11, 2024 2:05p m ILEUS VS PSBO July 11, 2024 2:06p m ILEUS VS PSBO July 12, 2024 7:15a m ILEUS VS PSBO July 12, 2024 9:27a m ILEUS VS PSBO July 13, 2024 8:08a m ILEUS VS PSBO July 13, 2024 10:23 am ILEUS VS PSBO July 14, 2024 8:39a m Pacer Check Remote July 20, 2024 9:33 am HYPOXIA, HFrEF EXACERBATION August 01 025 8:44pm HYPOXIA, HFrEF EXACERBATION August 02 7:44am HYPOXIA, HFrEF EXACERBATION Alexia 25th, 2 025 5:12pm HYPOXIA, HFrEF EXACERBATION August 03, 2 025 6:39am Reason for Visit Admit Date Adverse drug reaction June 25, 2024 10: 15pm Hypokalemia June 25, 2024 10:15 pm Lactic acidosis June 25, 2024 10:15 pm Ascites due to alcoholic cirrhosis June [id number] 10:15pm Chronic alcohol abuse June 25, 2024 10: 15pm Chronic diarrhea June 25, 2024 10:15 pm Chronic pancreatitis June 25, 2024 10:1 5pm Macrocytosis associated with alcohol June 25, 2024 10:15pm Thrombocytopenia June 25, 2024 10:15 pm Acute HFrEF (heart failure with reduced ejection fraction) June 30, 2024 7:47pm Abdominal ascites June 30, 2024 7:47p m MALIK (acute kidney injury) June 30, 2024 7:47pm Conjunctivitis June 30, 2024 7:47p m Elevated troponin June 30, 2024 7:47p m Hypoxia June 30, 2024 7:47p m Pleural effusion June 30, 2024 7:47p m Respiratory insufficiency June 30, 2024 7:47pm Volume overload June 30, 2024 7:47p m Ascites due to alcoholic cirrhosis June [id number] 7:47pm Chronic pancreatitis June 30, 2024 7:47 pm Malnutrition June 30, 2024 7:47p m Medically noncompliant June 30, 2024 7: 47pm Pancytopenia June 30, 2024 7:47p m Thrombocytopenia June 30, 2024 7:47p m Abdominal pain July 11, 2024 2:06p m Headache July 11, 2024 2:06p m Nausea July 11, 2024 2:06p m Nausea & vomiting July 11, 2024 2:06p m Partial bowel obstruction July 11, 2024 2:06pm Suicidal ideation July 11, 2024 2:06p m Acute HFrEF (heart failure with reduced ejection fraction) August 01, 2024 8:44pm H/O aortic valve replacement August 01, 2024 8:44pm History of aortic aneurysm repair July 102024 8:44pm Hypoxia August 01, 2024 8:44 pm Elevated troponin August 01, 2024 8:44 pm Reason for Referral Specialty Diagnoses / Procedures Referred By Contac t Referred To Contact CT IMAGING Diagnoses Diarrhea, unspecified type Acute pancreatitis, unspecified complication status, unspecified pancreatitis type Procedures CT PANCREAS W IVCON CT ABDOMEN W/CONTRAST Marianna Wagner APRN.SPLUNK D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 [address] [place] [address] [place] [address] Referral ID Status Reason Start Date Expiration Date Visits Requested Visits Authorized [id number] New Request Auto-Generat ed Referral 11/08/2023 12/06/2024 1 1 Specialty Diagnoses / Procedures Referred By Contac t Referred To Contact Hematology / [facility] Diagnoses 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) Medically complex patient Anemia, unspecified type Procedures CONSULT TO HEMATOLOGY OFFICE/OUTPATIENT [facility] 60 MINUTES Marianna Wagner VEHICLE DISMANTLER.SPLUNK D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 [address] [place] [id number] Trish Silverio, DO [address] [place] [address] Referral ID Status Reason Start Date Expiration Date Visits Requested Visits Authorized [id number] Authorized PCP Requested Referral 10/17/2023 10/16/2024 1 1 Specialty Diagnoses / Procedures Referred By Contac t Referred To Contact CT IMAGING Diagnoses Generalized abdominal pain Diarrhea of presumed infectious origin Weight loss Alcohol-induced chronic pancreatitis (HCC) Procedures CT ABD/PEL WO IVCON CT ABD/PEL WO IVCON CT ABD & PELVIS W/O CONTRAST Marianna Wagner, VEHICLE DISMANTLER.SPLUNK D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 [address] [place] [address] [place] [address] Referral ID Status Reason Start Date Expiration Date Visits Requested Visits Authorized [id number] New Request Auto-Generat ed Referral 10/14/2023 11/12/2024 1 1 Specialty Diagnoses / Procedures Referred By Contac t Referred To Contact Gastroenterology Diagnoses Diarrhea of presumed infectious origin Generalized abdominal pain Procedures CONSULT TO GASTROENTEROLOGY OFFICE/OUTPATIENT [facility] 60 MINUTES Marianna Wagner, VEHICLE DISMANTLER.SPLUNK D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 [address] [place] [address] Referral ID Status Reason Start Date Expiration Date Visits Requested Visits Authorized [id number] Authorized PCP Requested Referral 09/24/2023 09/23/2024 1 1 Specialty Diagnoses / Procedures Referred By Contac t Referred To Contact [facility] Diagnoses Chronic diarrhea Weight loss Procedures CONSULT TO GASTROENTEROLOGY OFFICE/OUTPATIENT [facility] 60 MINUTES Marianna Wagner, VEHICLE DISMANTLER.SPLUNK D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 [address] [place] [address] [facility] GA[facility] [address] [place] [address] Referral ID Status Reason Start Date Expiration Date Visits Requested Visits Authorized [id number] Authorized PCP Requested Referral 08/09/2023 08/08/2024 1 1 Specialty Diagnoses / Procedures Referred By Contac t Referred To Contact [facility] Diagnoses Type 2 diabetes mellitus with complication, with long-term current use of insulin (HCC) Weight loss Procedures CONSULT TO ENDOCRINOLOGY OFFICE/OUTPATIENT [facility] 60 MINUTES Marianna Wagner, VEHICLE DISMANTLER.SPLUNK D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 [address] [place] [address] Kell Richmond MD [address] [place] [address] Referral ID Status Reason Start Date Expiration Date Visits Requested Visits Authorized [id number] Authorized PCP Requested Referral 08/09/2023 08/08/2024 1 1 Additional Source Comments (unrecognized sect ion and content) No Status Records FoundNo Status Records FoundNo Status Records FoundNo Status Records FoundNo Status Records FoundNo Status Records FoundNo Status Records FoundNo Status Records Found INFORMATION SOURCE (unrecogn ized section and content) DATE CREATED AUTHOR [facility]/12/[address] [facility] DATE CREATED AUTHOR AUTHOR'S ORGANIZ ATION 04/08/2018 [facility] DATE CREATED AUTHOR AUTHOR'S ORGANIZ ATION 04/09/2023 [facility] ([place]) DATE CREATED AUTHOR AUTHOR'S ORGANIZ ATION 03/24/2024 [facility] DATE CREATED AUTHOR AUTHOR'S ORGANIZ ATION 04/07/2024 [facility] DATE CREATED AUTHOR AUTHOR'S ORGANIZ ATION 04/14/2024 [facility] DATE CREATED AUTHOR AUTHOR'S ORGANIZ ATION 07/18/2024 [facility] DATE CREATED AUTHOR AUTHOR'S ORGANIZ ATION 08/22/2024 [facility] Goals (unrecognized section and content) Goals may be documented in a n alternate section Care Team (unrecognized sect ion and content) Care Team Personnel Name: ANDREAS PATHAK Viola VEHICLE DISMANTLER - SPLUNK D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: Employed Provider Member Role: Primary Care Physician Address: Address: [address] [place] [address]- [place] Care Team Related Persons Name: NARENDRA MELENDREZ Name: TERRA MELENDREZ Care Teams (unrecognized sec tion and content) Team Status: Active Member Role Status Dates Marianna Wagner VEHICLE MODIFICATION TECHNICIAN, VEHICLE MODIFICATION TECHNICIAN-C Primary Care Provider Active Team Status: Inactive Member Role Status Dates No Primary Care Physician Primary Care Provider Active Start: April 13, 2024 End: April 13, 2024 Dr. Trung Bob MD Attending Provider Active S tart: April 13, 2024 End: April 13, 2024 Team Status: Inactive Member Role Status Dates Dr. Rolan Romero DO Referring Provider Activ e Start: June 25, 2024 End: June 28, 2024 Dr. Rolan Romero DO Emergency Provider Activ e Start: June 25, 2024 End: June 28, 2024 Marianna Wagner VEHICLE MODIFICATION TECHNICIAN, VEHICLE MODIFICATION TECHNICIAN-C Primary Care Provider Active Start: June 25, 2024 End: June 28, 2024 Dr. Conrado Pro , DO Admit Provider Active Start: June 25, 2024 End: June 28, 2024 Dr. Conrado Pro , DO Other Provider Active Start: June 25, 2024 End: June 28, 2024 Dr. Melonie De La Rosa , Attending Provider Active S tart: June 25, 2024 End: June 28, 2024 Team Status: Active Member Role Status Dates Dr. Rolan Romero DO Emergency Provider Activ e Start: June 26, 2024 Marianna Quedevyn VEHICLE MODIFICATION TECHNICIAN, VEHICLE MODIFICATION TECHNICIAN-C Primary Care Provider Active Start: June 26, 2024 Dr. Conrado Pro , DO Admit Provider Active Start: June 26, 2024 Dr. Conrado Pro , DO Other Provider Active Start: June 26, 2024 Dr. Melonie De La Rosa , DO Attending Provider Active S tart: June 26, 2024 Dr. Melonie De La Rosa , DO Other Provider Active Start : June 26, 2024 Team Status: Active Member Role Status Dates Dr. Rolan Romero , DO Referring Provider Activ e Start: June 26, 2024 Dr. Rolan Romero , DO Emergency Provider Activ e Start: June 26, 2024 Marianna Fátima VEHICLE MODIFICATION TECHNICIAN, VEHICLE MODIFICATION TECHNICIAN-C Primary Care Provider Active Start: June 26, 2024 Dr. Conrado Pro , DO Admit Provider Active Start: June 26, 2024 Dr. Conrado Pro , DO Other Provider Active Start: June 26, 2024 Dr. Melonie De La Rosa , DO Other Provider Active Start : June 26, 2024 Dr. Antony Espitia , DO Attending Provider Active Start: June 26, 2024 Team Status: Active Member Role Status Dates Dr. Rolan Romero , DO Emergency Provider Activ e Start: June 27, 2024 Marianna Ruizdevyn VEHICLE MODIFICATION TECHNICIAN, VEHICLE MODIFICATION TECHNICIAN-C Primary Care Provider Active Start: June 27, 2024 Dr. Conrado Pro , DO Admit Provider Active Start: June 27, 2024 Dr. Conrado Pro , DO Other Provider Active Start: June 27, 2024 Dr. Melonie De La Rosa , DO Attending Provider Active S tart: June 27, 2024 Dr. Melonie De La Rosa , DO Other Provider Active Start : June 27, 2024 Team Status: Active Member Role Status Dates Dr. Rolan Romero , DO Referring Provider Activ e Start: June 27, 2024 Dr. Rolan Romero , DO Emergency Provider Activ e Start: June 27, 2024 Marianna Quedevyn VEHICLE MODIFICATION TECHNICIAN, VEHICLE MODIFICATION TECHNICIAN-C Primary Care Provider Active Start: June 27, 2024 Dr. Conrdao Pro , DO Admit Provider Active Start: June 27, 2024 Dr. Conrado Pro , DO Other Provider Active Start: June 27, 2024 Dr. Melonie De La Rosa , DO Other Provider Active Start : June 27, 2024 Dr. Antony Espitia , DO Attending Provider Active Start: June 27, 2024 Team Status: Active Member Role Status Dates Dr. Rolan Romero , DO Emergency Provider Activ e Start: June 28, 2024 Marianna Queden VEHICLE MODIFICATION TECHNICIAN, VEHICLE MODIFICATION TECHNICIAN-C Primary Care Provider Active Start: June 28, 2024 Dr. Conrado Pro , DO Admit Provider Active Start: June 28, 2024 Dr. Conrado Pro , DO Other Provider Active Start: June 28, 2024 Dr. Melonie De La Rosa , DO Attending Provider Active S tart: June 28, 2024 Dr. Melonie De La Rosa , DO Other Provider Active Start : June 28, 2024 Team Status: Active Member Role Status Dates Dr. Rolan Romero , DO Referring Provider Activ e Start: June 28, 2024 Dr. Rolan Romero , DO Emergency Provider Activ e Start: June 28, 2024 Mariannamandy Wagner VEHICLE MODIFICATION TECHNICIAN, VEHICLE MODIFICATION TECHNICIAN-C Primary Care Provider Active Start: June 28, 2024 Dr. Conrado Pro , DO Admit Provider Active Start: June 28, 2024 Dr. Conrado Pro , DO Other Provider Active Start: June 28, 2024 Dr. Melonie De La Rosa , DO Other Provider Active Start : June 28, 2024 Dr. Antony Espitia , DO Attending Provider Active Start: June 28, 2024 Team Status: Active Member Role Status Dates Marianna Wagner VEHICLE MODIFICATION TECHNICIAN, VEHICLE MODIFICATION TECHNICIAN-C Primary Care Provider Active Start: June 30, 2024 Dr. Narendra Gonzalez , DO Emergency Provider Active Start: June 30, 2024 Dr. Conrado Pro , DO Admit Provider Active Start: June 30, 2024 Dr. Conrado Pro , DO Attending Provider Active Start: June 30, 2024 Dr. Conrado Pro , DO Other Provider Active Start: June 30, 2024 Team Status: Inactive Member Role Status Dates Marianna Fátima VEHICLE MODIFICATION TECHNICIAN, VEHICLE MODIFICATION TECHNICIAN-C Primary Care Provider Active Start: June 30, 2024 End: July 06, 2024 Dr. Narendra Gonzalez , DO Emergency Provider Active Start: June 30, 2024 End: July 06, 2024 Dr. Conrado Pro , DO Admit Provider Active Start: June 30, 2024 End: July 06, 2024 Dr. Conrado Pro , DO Referring Provider Active Start: June 30, 2024 End: July 06, 2024 Dr. Conrado Pro , DO Other Provider Active Start: June 30, 2024 End: July 06, 2024 Dr. Chris Aragon , DO Attending Provider Active Start: June 30, 2024 End: July 06, 2024 Dr. Melonie De La Rosa , DO Other Provider Active Start : June 30, 2024 End: July 06, 2024 Dr. Yaneli Carbone MD Other Provider Active Star t: June 30, 2024 End: July 06, 2024 Team Status: Active Member Role Status Dates Marianna Wagner VEHICLE MODIFICATION TECHNICIAN, VEHICLE MODIFICATION TECHNICIAN-C Primary Care Provider Active Start: July 01, 2024 Dr. Narendra Gonzalez , DO Emergency Provider Active Start: July 01, 2024 Dr. Conrado Pro , DO Admit Provider Active Start: July 01, 2024 Dr. Conrado Pro , DO Other Provider Active Start: July 01, 2024 Dr. Melonie De La Rosa , DO Attending Provider Active S tart: July 01, 2024 Dr. Melonie De La Rosa , DO Other Provider Active Start : July 01, 2024 Team Status: Active Member Role Status Dates Marianna Wagner VEHICLE MODIFICATION TECHNICIAN, VEHICLE MODIFICATION TECHNICIAN-C Primary Care Provider Active Start: July 02, 2024 Dr. Narendra Gonzalez , DO Emergency Provider Active Start: July 02, 2024 Dr. Conrado Pro , DO Admit Provider Active Start: July 02, 2024 Dr. Conrado Pro , DO Other Provider Active Start: July 02, 2024 Dr. Melonie De La Rosa , DO Attending Provider Active S tart: July 02, 2024 Dr. Melonie De La Rosa , DO Other Provider Active Start : July 02, 2024 Team Status: Active Member Role Status Dates Marianna Wagner VEHICLE MODIFICATION TECHNICIAN, VEHICLE MODIFICATION TECHNICIAN-C Primary Care Provider Active Start: July 03, 2024 Dr. Narendra Gonzalez , DO Emergency Provider Active Start: July 03, 2024 Dr. Conrado Pro , DO Admit Provider Active Start: July 03, 2024 Dr. Conrado Pro , DO Other Provider Active Start: July 03, 2024 Dr. Chris Aragon , DO Attending Provider Active Start: July 03, 2024 Dr. Chris Aragon , DO Other Provider Active Start: July 03, 2024 Dr. Melonie De La Rosa , DO Other Provider Active Start : July 03, 2024 Team Status: Active Member Role Status Dates Marianna Wagner VEHICLE MODIFICATION TECHNICIAN, VEHICLE MODIFICATION TECHNICIAN-C Primary Care Provider Active Start: July 03, 2024 Dr. Yaneli Carbone MD Attending Provider Active Start: July 03, 2024 Team Status: Active Member Role Status Dates Marianna Wagner VEHICLE MODIFICATION TECHNICIAN, VEHICLE MODIFICATION TECHNICIAN-C Primary Care Provider Active Start: July 03, 2024 Dr. Narendra Gonzalez , DO Emergency Provider Active Start: July 03, 2024 Dr. Conrado Pro , DO Admit Provider Active Start: July 03, 2024 Dr. Conrado Pro , DO Referring Provider Active Start: July 03, 2024 Dr. Conrado Pro , DO Other Provider Active Start: July 03, 2024 Dr. Chris Aragon , DO Other Provider Active Start: July 03, 2024 Dr. Melonie De La Rosa , DO Other Provider Active Start : July 03, 2024 Dr. Antony Espitia , DO Attending Provider Active Start: July 03, 2024 Team Status: Active Member Role Status Dates Marianna Wagner VEHICLE MODIFICATION TECHNICIAN, VEHICLE MODIFICATION TECHNICIAN-C Primary Care Provider Active Start: July 04, 2024 Dr. Narendra Gonzalez , DO Emergency Provider Active Start: July 04, 2024 Dr. Conrado Pro , DO Admit Provider Active Start: July 04, 2024 Dr. Conrado Pro , DO Referring Provider Active Start: July 04, 2024 Dr. Conrado Pro , DO Other Provider Active Start: July 04, 2024 Dr. Chris Aragon , DO Other Provider Active Start: July 04, 2024 Dr. Melonie De La Rosa , DO Other Provider Active Start : July 04, 2024 Dr. Yaneli Carbone MD Attending Provider Active Start: July 04, 2024 Dr. Yaneli Carbone MD Other Provider Active Star t: July 04, 2024 Team Status: Active Member Role Status Dates Marianna Wagner VEHICLE MODIFICATION TECHNICIAN, VEHICLE MODIFICATION TECHNICIAN-C Primary Care Provider Active Start: July 04, 2024 Dr. Narendra Gonzalez , DO Emergency Provider Active Start: July 04, 2024 Dr. Conrado Pro , DO Admit Provider Active Start: July 04, 2024 Dr. Conrado Pro , DO Other Provider Active Start: July 04, 2024 Dr. Chris Aragon , DO Attending Provider Active Start: July 04, 2024 Dr. Chris Aragon , DO Other Provider Active Start: July 04, 2024 Dr. Melonie De La Rosa , DO Other Provider Active Start : July 04, 2024 Dr. Yaneli Carbone MD Other Provider Active Star t: July 04, 2024 Team Status: Active Member Role Status Dates Marianna Wagner VEHICLE MODIFICATION TECHNICIAN, VEHICLE MODIFICATION TECHNICIAN-C Primary Care Provider Active Start: July 04, 2024 Dr. Narendra Gonzalez , DO Emergency Provider Active Start: July 04, 2024 Dr. Conrado Pro , DO Admit Provider Active Start: July 04, 2024 Dr. Conrado Pro , DO Referring Provider Active Start: July 04, 2024 Dr. Conrado Pro , DO Other Provider Active Start: July 04, 2024 Dr. Chris Aragon , DO Other Provider Active Start: July 04, 2024 Dr. Melonie De La Rosa , DO Other Provider Active Start : July 04, 2024 Dr. Yaneli Carbone MD Other Provider Active Star t: July 04, 2024 Dr. Antony Espitia , DO Attending Provider Active Start: July 04, 2024 Team Status: Active Member Role Status Dates Marianna Wagner VEHICLE MODIFICATION TECHNICIAN, VEHICLE MODIFICATION TECHNICIAN-C Primary Care Provider Active Start: July 05, 2024 Dr. Narendra Gonzalez , DO Emergency Provider Active Start: July 05, 2024 Dr. Conrado Pro , DO Admit Provider Active Start: July 05, 2024 Dr. Conrado Pro , DO Other Provider Active Start: July 05, 2024 Dr. Chris Aragon , DO Attending Provider Active Start: July 05, 2024 Dr. Chris Aragon , DO Other Provider Active Start: July 05, 2024 Dr. Melonie De La Rosa , DO Other Provider Active Start : July 05, 2024 Dr. Yaneli Carbone MD Other Provider Active Star t: July 05, 2024 Team Status: Active Member Role Status Dates Marianna Wagner VEHICLE MODIFICATION TECHNICIAN, VEHICLE MODIFICATION TECHNICIAN-C Primary Care Provider Active Start: July 06, 2024 Dr. Narendra Gonzalez , DO Emergency Provider Active Start: July 06, 2024 Dr. Conrado Pro , DO Admit Provider Active Start: July 06, 2024 Dr. Conrado Pro , DO Other Provider Active Start: July 06, 2024 Dr. Chris Aragon , DO Attending Provider Active Start: July 06, 2024 Dr. Chris Aragon , DO Other Provider Active Start: July 06, 2024 Dr. Melonie De La Rosa , DO Other Provider Active Start : July 06, 2024 Dr. Yaneli Carbone MD Other Provider Active Star t: July 06, 2024 Team Status: Active Member Role Status Dates Marianna Wagner VEHICLE MODIFICATION TECHNICIAN, VEHICLE MODIFICATION TECHNICIAN-C Primary Care Provider Active Start: July 11, 2024 Dr. Perez Ribeiro , Emergency Provider Active Start: July 11, 2024 Dr. Melonie De La Rosa , DO Attending Provider Active S tart: July 11, 2024 Team Status: Active Member Role Status Dates Marianna Wagner VEHICLE MODIFICATION TECHNICIAN, VEHICLE MODIFICATION TECHNICIAN-C Primary Care Provider Active Start: July 11, 2024 Dr. Perez Ribeiro DO Emergency Provider Active Start: July 11, 2024 Dr. Melonie De La Rosa , Admit Provider Active Start : July 11, 2024 Dr. Melonie De La Rosa , DO Attending Provider Active S tart: July 11, 2024 Team Status: Active Member Role Status Dates Sigrid KELLY DO Primary Care Provider Active Team Status: Inactive Member Role Status Dates Dr. Perez Ribeiro DO Emergency Provider Active Start: July 11, 2024 End: July 14, 2024 Dr. Melonie De La Rosa , DO Admit Provider Active Start : July 11, 2024 End: July 14, 2024 Dr. Melonie De La Rosa , Other Provider Active Start : July 11, 2024 End: July 14, 2024 Dr. Denys Fontanez MD Other Provider Active Sta rt: July 11, 2024 End: July 14, 2024 Dr. Conrado Morel MD Attending Provider Active Start: July 11, 2024 End: July 14, 2024 Sigrid KELLY, DO Primary Care Provider Active Start: July 11, 2024 End: July 14, 2024 Team Status: Active Member Role Status Dates Marianna Wagner VEHICLE MODIFICATION TECHNICIAN, VEHICLE MODIFICATION TECHNICIAN-C Primary Care Provider Active Start: July 12, 2024 Dr. Perez Ribeiro DO Emergency Provider Active Start: July 12, 2024 Dr. Melonie De La Rosa DO Admit Provider Active Start : July 12, 2024 Dr. Melonie De La Rosa DO Other Provider Active Start : July 12, 2024 Dr. Denys Fontanez MD Other Provider Active Sta rt: July 12, 2024 Dr. Conrado Morel MD Attending Provider Active Start: July 12, 2024 Dr. Conrado Morel MD Other Provider Active Star t: July 12, 2024 Team Status: Active Member Role Status Dates Marianna Wagner VEHICLE MODIFICATION TECHNICIAN, VEHICLE MODIFICATION TECHNICIAN-C Primary Care Provider Active Start: July 12, 2024 Dr. Perez Ribeiro DO Emergency Provider Active Start: July 12, 2024 Dr. Melonie De La Rosa DO Admit Provider Active Start : July 12, 2024 Dr. Melonie De La Rosa DO Other Provider Active Start : July 12, 2024 Dr. Denys Fontanez MD Other Provider Active Sta rt: July 12, 2024 Dr. Conrado Morel MD Other Provider Active Star t: July 12, 2024 Dian BALDERAS PAAstrid Attending Provider Active Start: July 12, 2024 Team Status: Active Member Role Status Dates Marianna Wagner VEHICLE MODIFICATION TECHNICIAN, VEHICLE MODIFICATION TECHNICIAN-C Primary Care Provider Active Start: July 13, 2024 Dr. Perez Ribeiro DO Emergency Provider Active Start: July 13, 2024 Dr. Melonie De La Rosa DO Admit Provider Active Start : July 13, 2024 Dr. Melonie De La Rosa DO Other Provider Active Start : July 13, 2024 Dr. Denys Fontanez MD Other Provider Active Sta rt: July 13, 2024 Dr. Conrado Morel MD Other Provider Active Star t: July 13, 2024 Dian BALDERAS PA-C Attending Provider Active Start: July 13, 2024 Team Status: Active Member Role Status Dates Marianna Wagner VEHICLE MODIFICATION TECHNICIAN, VEHICLE MODIFICATION TECHNICIAN-C Primary Care Provider Active Start: July 13, 2024 Dr. Perez Ribeiro DO Emergency Provider Active Start: July 13, 2024 Dr. Melonie De La Rosa DO Admit Provider Active Start : July 13, 2024 Dr. Melonie De La Rosa DO Other Provider Active Start : July 13, 2024 Dr. Denys Fontanez MD Other Provider Active Sta rt: July 13, 2024 Dr. Conrado Morel MD Attending Provider Active Start: July 13, 2024 Dr. Conrado Morel MD Other Provider Active Star t: July 13, 2024 Team Status: Active Member Role Status Dates Dr. Perez Ribeiro DO Emergency Provider Active Start: July 14, 2024 Dr. Melonie De La Rosa DO Admit Provider Active Start : July 14, 2024 Dr. Melonie De La Rosa DO Other Provider Active Start : July 14, 2024 Dr. Denys Fontanez MD Other Provider Active Sta rt: July 14, 2024 Dr. Conrado Morel MD Attending Provider Active Start: July 14, 2024 Dr. Conrado Morel MD Other Provider Active Star t: July 14, 2024 Sigrid Call [facility], DO Primary Care Provider Active Start: July 14, 2024 Team Status: Active Member Role Status Dates Adnreas Pathak VEHICLE MODIFICATION TECHNICIAN, VEHICLE MODIFICATION TECHNICIAN-C Family Provider Activ e Andreas Pathak VEHICLE MODIFICATION TECHNICIAN, VEHICLE MODIFICATION TECHNICIAN-C Primary Care Provider Active Team Status: Active Member Role Status Dates Andreas Pathak VEHICLE MODIFICATION TECHNICIAN, VEHICLE MODIFICATION TECHNICIAN-C Primary Care Provider Active Dr. Vinh Lomeli MD Emergency Provider Active Dr. Iman Aguayo MD Admit Provider, Other Provider Active Dr. Conrado Morel MD Attending Provider, Other Provid er Active Team Status: Active Member Role Status Dates Andreas Pathak VEHICLE MODIFICATION TECHNICIAN, VEHICLE MODIFICATION TECHNICIAN-C Primary Care Provider Active Dr. Vinh Lomeli MD Emergency Provider Active Dr. Iman Aguayo MD Admit Provider, Other Provider Active Dr. Mateusz Dutton DO Attending Provider, Other Pro vider Active Dr. Conrado Morel MD Other Provider Active Team Status: Active Member Role Status Dates Andreas Pathak VEHICLE MODIFICATION TECHNICIAN, VEHICLE MODIFICATION TECHNICIAN-C Primary Care Provider Active Dr. Vinh Lomeli MD Emergency Provider Active Dr. Ashley Alvarado MD Admit Provider, Other Provider Active Dr. Iman Aguayo MD Attending Provider Active Team Status: Inactive Member Role Status Dates Andreas Pathak VEHICLE MODIFICATION TECHNICIAN, VEHICLE MODIFICATION TECHNICIAN-C Primary Care Provider Active Dr. Vinh Lomeli MD Emergency Provider Active Dr. Iman Aguayo MD Admit Provider, Other Provider Active Dr. Mateusz Dutton DO Attending Provider Active Dr. Conrado Morel MD Other Provider Active Team Status: Active Member Role Status Dates Andreas Pathak VEHICLE MODIFICATION TECHNICIAN, VEHICLE MODIFICATION TECHNICIAN-C Primary Care Provider Active Dr. Vinh Lomeli MD Emergency Provider Active Dr. Iman Aguayo MD Admit Provider, Attending Prov ider Active Team Status: Active Member Role Status Dates Andreas Pathak VEHICLE MODIFICATION TECHNICIAN, VEHICLE MODIFICATION TECHNICIAN-C Primary Care Provider Active Dr. Vinh Lomeli MD Emergency Provider Active Dr. Iman Aguayo MD Admit Provider, Other Provider Active Dr. Mateusz Dutton DO Attending Provider, Other Pro vider Active Team Status: Inactive Member Role Status Dates Andreas Pathak VEHICLE MODIFICATION TECHNICIAN, VEHICLE MODIFICATION TECHNICIAN-C Primary Care Provider Active Dr. Vinh Lomeli MD Emergency Provider Active Dr. Iman Aguayo MD Admit Provider, Other Provider Active Dr. Mateusz Dutton , Attending Provider Active Team Status: Inactive Member Role Status Dates Andreas Pathak VEHICLE MODIFICATION TECHNICIAN, VEHICLE MODIFICATION TECHNICIAN-C Primary Care Provider Active Dr. Sinan Abarca DO Attending Provider, Emergency Provider Active Team Status: Inactive Member Role Status Dates Andreas Pathak VEHICLE MODIFICATION TECHNICIAN, VEHICLE MODIFICATION TECHNICIAN-C Primary Care Provider Active Dr. Vinh Lomeli MD Emergency Provider Active Team Status: Inactive Member Role Status Dates Andreas Pathak VEHICLE MODIFICATION TECHNICIAN, VEHICLE MODIFICATION TECHNICIAN-C Primary Care Provider Active Dr. Trung Bob MD Attending Provider Active Team Status: Active Member Role Status Dates Andreas Pathak VEHICLE MODIFICATION TECHNICIAN, VEHICLE MODIFICATION TECHNICIAN-C Primary Care Provider Active Dr. Chris Call DO Emergency Provider Active Dr. Lucas Frausto MD Admit Provider, Attending Provider Active Team Status: Active Member Role Status Dates Andreas Pathak VEHICLE MODIFICATION TECHNICIAN, VEHICLE MODIFICATION TECHNICIAN-C Primary Care Provider Active Dr. Chris Call DO Emergency Provider Active Dr. Lucas Frausto MD Admit Provi mary lou, Attending Provider, Other Provider Active Team Status: Active Member Role Status Dates Andreas Pathak VEHICLE MODIFICATION TECHNICIAN, VEHICLE MODIFICATION TECHNICIAN-C Primary Care Provider Active Dr. Chris Call DO Emergency Provider Active Dr. Lucas Frausto MD Admit Provider, Other Pro vider Active Dr. Ashley Alvarado MD Attending Provider, Other Prov ider Active Team Status: Inactive Member Role Status Dates Andreas Pathak VEHICLE MODIFICATION TECHNICIAN, VEHICLE MODIFICATION TECHNICIAN-C Primary Care Provider Active Dr. Chris Call DO Emergency Provider Active Dr. Lucas Frausto MD Admit Provider, Other Pro vider Active Dr. Ashley Alvarado MD Attending Provider Active Team Status: Active Member Role Status Dates Andreas Pathak VEHICLE MODIFICATION TECHNICIAN, VEHICLE MODIFICATION TECHNICIAN-C Primary Care Provider Active Dr. Carlos Augustin MD Emergency Provider Active Dr. Conrado Pro , Admit Provider, Attending Pr ovider Active Team Status: Active Member Role Status Dates Andreas Pathak VEHICLE MODIFICATION TECHNICIAN, VEHICLE MODIFICATION TECHNICIAN-C Primary Care Provider Active Dr. Carlos Augustin MD Emergency Provider Active Dr. Conrado Pro DO Admit Provider, Other Provid er Active Dr. Conrado Morel MD Attending Provider, Other Provid er Active Dr. Trenton Strong MD Other Provider Active Dr. Alcides Tucker MD Other Provider Active Dr. Aramis Palacios MD Other Provider Active Dr. Barry Sheehan DO Other Provider Active Dr. Aldo Castellano MD Other Provider Active Dr. [place] Kearns MD Other Provider Active Dr. Chen Merrill MD Other Provider Active Dr. Mundo Marcelino MD Other Provider Active Dr. Meli Miles MD Other Provider Active Dr. Tiara Horowitz MD Other Provider Active Dr. Yunier Allred MD Other Provider Active Dr. Jose Pacheco MD Other Provider Active Dr. Marquez Elmore MD Other Provider Active Dr. Bronson Peterson MD Other Provider Active Dr. Toni Dodge MD Other Provider Active Team Status: Active Member Role Status Dates Andreas Pathak VEHICLE MODIFICATION TECHNICIAN, VEHICLE MODIFICATION TECHNICIAN-C Primary Care Provider Active Dr. Carlos Augustin MD Emergency Provider Active Dr. Conrado Pro DO Admit Provider, Other Provid er Active Dr. Conrado Morel MD Referring Provider, Other Provid er Active Dr. Trenton Strong MD Other Provider Active Dr. Alcides Tucker MD Other Provider Active Dr. Aramis Palacios MD Other Provider Active Dr. Barry Sheehan DO Attending Provider, Other Provide r Active Dr. Aldo Castellano MD Other Provider Active Dr. [place] MD Other Provider Active Dr. Chen Merrill MD Other Provider Active Dr. Mundo Marcelino MD Other Provider Active Dr. Meli Miles MD Other Provider Active Dr. Tiara Horowitz MD Other Provider Active Dr. Yunier Allred MD Other Provider Active Dr. Jose Pacheco MD Other Provider Active Dr. Marquez Elmore MD Other Provider Active Dr. Bronson Peterson MD Other Provider Active Dr. Toni Dodge MD Other Provider Active Team Status: Active Member Role Status Dates Andreas Pathak VEHICLE MODIFICATION TECHNICIAN, VEHICLE MODIFICATION TECHNICIAN-C Primary Care Provider Active Dr. Carlos Augustin MD Emergency Provider Active Dr. Conrado Pro DO Admit Provider, Other Provid er Active Dr. Conrado Morel MD Other Provider Active Dr. Trenton Strong MD Other Provider Active Dr. Alcides Tucker MD Other Provider Active Dr. Aramis Palacios MD Other Provider Active Dr. Barry Sheehan DO Other Provider Active Dr. Aldo Castellano MD Other Provider Active Dr. [place] MD Other Provider Active Dr. Chen Merrill MD Other Provider Active Dr. Mundo Marcelino MD Other Provider Active Dr. Meli Miles MD Other Provider Active Dr. Tiara Horowitz MD Other Provider Active Dr. Yunier Allred MD Other Provider Active Dr. Jose Pacheco MD Other Provider Active Dr. Marquez Elmore MD Other Provider Active Dr. Bronson Peterson MD Other Provider Active Dr. Toni Dodge MD Other Provider Active Dr. Iman Aguayo MD Attending Provider Active Team Status: Active Member Role Status Dates Andreas Pathak VEHICLE MODIFICATION TECHNICIAN, VEHICLE MODIFICATION TECHNICIAN-C Primary Care Provider Active Dr. Carlos Augustin MD Emergency Provider Active Dr. Conrado Pro DO Admit Provider, Other Provid er Active Dr. Conrado Morel MD Referring Provider, Other Provid er Active Dr. Barry Sheehan DO Attending Provider Active Team Status: Active Member Role Status Dates Andreas Pathak VEHICLE MODIFICATION TECHNICIAN, VEHICLE MODIFICATION TECHNICIAN-C Primary Care Provider Active Dr. Carlos Augustin MD Emergency Provider Active Dr. Conrado Pro DO Admit Provider, Other Provid er Active Dr. Conrado Morel MD Attending Provider, Other Provid er Active Dr. Maya Melo MD Other Provider Active Team Status: Active Member Role Status Dates Andreas Pathak VEHICLE MODIFICATION TECHNICIAN, VEHICLE MODIFICATION TECHNICIAN-C Primary Care Provider Active Dr. Carlos Augustin MD Emergency Provider Active Dr. Conrado Pro , Admit Provider, Other Provid er Active Dr. Maya Melo MD Other Provider Active Dr. Refugio Rojas MD Attending Provider, Other Provi mary lou Active Dr. Conrado Morel MD Other Provider Active Team Status: Inactive Member Role Status Dates Andreas Almazanmyla Pathak VEHICLE MODIFICATION TECHNICIAN, VEHICLE MODIFICATION TECHNICIAN-C Primary Care Provider Active Dr. Carlos Augustin MD Emergency Provider Active Dr. Conrado Pro , Admit Provider, Other Provid er Active Dr. Maya Melo MD Other Provider Active Dr. Refugio Rojas MD Attending Provider Active Dr. Conrado Morel MD Other Provider Active Billposting Supervisor Relationship Specialty Start Date End Date Marianna Wagner, VEHICLE DISMANTLER.SPLUNK D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 [address] [place] [address] PCP - General Family Medicine 08/09/23 Trung Bob MD [address] [place] [address] Physician Cardiology 06/10/18 Billposting Supervisor Relationship Specialty Start Date End Date Marianna Wagner, VEHICLE DISMANTLER.SPLUNK D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 [address] [place] [address] PCP - General Family Medicine 08/09/23 Trung Bob MD [address] [place] [address] Physician Cardiology 06/10/18 Billposting Supervisor Relationship Specialty Start Date End Date Marianna Wagner VEHICLE DISMANTLER.SPLUNK D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 [address] [place] [address] PCP - General Family Medicine 08/09/23 Trung Bob MD [address] [place] [address] Physician Cardiology 06/10/18 Billposting Supervisor Relationship Specialty Start Date End Date Marianna Wagner VEHICLE DISMANTLER.SPLUNK D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 [address] [facility] [address] PCP - General Family Medicine 08/09/23 Trung Bob MD [address] [place] [address] Physician Cardiology 06/10/18 Billposting Supervisor Relationship Specialty Start Date End Date Marianna Wagner VEHICLE DISMANTLER.SPLUNK D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 [address] [place] [address] PCP - General Family Medicine 08/09/23 Trung Bob MD [address] [place] [address] Physician Cardiology 06/10/18 Billposting Supervisor Relationship Specialty Start Date End Date Marianna Wagner, VEHICLE DISMANTLER.SPLUNK D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 [address] [place] [address] PCP - General Family Medicine 08/09/23 Trung Bob MD [address] [place], [place] [address] Physician Cardiology 06/10/18 Billposting Supervisor Relationship Specialty Start Date End Date Marianna Wagner VEHICLE DISMANTLER.SPLUNK DASHBOARD DEVELOPER [address] [place] [address] PCP - General Family Medicine 08/09/23 Trung Bob MD [address] [place] [address] Physician Cardiology 06/10/18 Billposting Supervisor Relationship Specialty Start Date End Date Marianna Wagner, VEHICLE DISMANTLER.SPLUNK DASHBOARD DEVELOPER [address] [address] PCP - General Family Medicine 08/09/23 Trung Bob MD [address] [place], [place] [address] Physician Cardiology 06/10/18 Billposting Supervisor Relationship Specialty Start Date End Date Marianna Wagner, VEHICLE DISMANTLER.SPLUNK DASHBOARD DEVELOPER [address] [facility] [place] [id number] PCP - General Family Medicine 08/09/23 Trung Bob MD [address] [place] [address] Physician Cardiology 06/10/18 Billposting Supervisor Relationship Specialty Start Date End Date Marianna Wagner, VEHICLE DISMANTLER.SPLUNK DASHBOARD DEVELOPER [address] [facility] [place] [address] PCP - General Family Medicine 08/09/23 Trung Bob MD [address] [place], [place] [address] Physician Cardiology 06/10/18 Billposting Supervisor Relationship Specialty Start Date End Date Marianna Wagner, VEHICLE DISMANTLER.SPLUNK DASHBOARD DEVELOPER [address] [place] [address] PCP - General Family Medicine 08/09/23 Trung Bob MD [address] [place], [place] [address]- Physician Cardiology 06/10/18 Billposting Supervisor Relationship Specialty Start Date End Date Marianna Wagner, VEHICLE DISMANTLER.SPLUNK DASHBOARD DEVELOPER [address] [facility], [place] [id number] PCP - General Family Medicine 08/09/23 Trung Bob MD [address], [place] [phone] Physician Cardiology 06/10/18 Billposting Supervisor Relationship Specialty Start Date End Date Marianna Wagner, VEHICLE DISMANTLER.SPLUNK DASHBOARD DEVELOPER [address] [facility], [place] [id number] PCP - General Family Medicine 08/09/23 Trung Bob MD [address] [address] Physician Cardiology 06/10/18 Billposting Supervisor Relationship Specialty Start Date End Date Marianna Wagner, VEHICLE DISMANTLER.SPLUNK DASHBOARD DEVELOPER [address] [facility] [place] [id number] PCP - General Family Medicine 08/09/23 Trung Bob MD [address] [facility] [address] [place], [place] [phone] Physician Cardiology 06/10/18 Billposting Supervisor Relationship Specialty Start Date End Date Marianna Wagner, VEHICLE DISMANTLER.SPLUNK DASHBOARD DEVELOPER [address] [facility], [place] [id number] PCP - General Family Medicine 08/09/23 Trung Bob MD [address] [place], [place] [address]- Physician Cardiology 06/10/18 Billposting Supervisor Relationship Specialty Start Date End Date Marianna Wagner, VEHICLE DISMANTLER.SPLUNK DASHBOARD DEVELOPER [address] [facility], [place] [phone] PCP - General Family Medicine 08/09/23 Trung Bob MD [address] [place], [place] [address]- Physician Cardiology 06/10/18 Billposting Supervisor Relationship Specialty Start Date End Date Marianna Wagner, VEHICLE DISMANTLER.SPLUNK DASHBOARD DEVELOPER [address] [facility], [place] [id number] PCP - General Family Medicine 08/09/23 Trung Bob MD [address] [place] [address] Physician Cardiology 06/10/18 Billposting Supervisor Relationship Specialty Start Date End Date Marianna Wagner, VEHICLE DISMANTLER.SPLUNK DASHBOARD DEVELOPER [address] [facility], [place] [id number] PCP - General Family Medicine 08/09/23 Trung Bob MD [address] [place], [place] [address]- Physician Cardiology 06/10/18 Billposting Supervisor Relationship Specialty Start Date End Date Marianna Wagner, VEHICLE DISMANTLER.SPLUNK DASHBOARD DEVELOPER [address] [facility], [place] [id number] PCP - General Family Medicine 08/09/23 Trung Bob MD [address] [place] [address] Physician Cardiology 06/10/18 Billposting Supervisor Relationship Specialty Start Date End Date Marianna Wagner, VEHICLE DISMANTLER.SPLUNK DASHBOARD DEVELOPER [address] [place], [place] [id number] PCP - General Family Medicine 08/09/23 Trung Bob MD [address] [address] Physician Cardiology 06/10/18 Billposting Supervisor Relationship Specialty Start Date End Date Marianna Wagner, VEHICLE DISMANTLER.SPLUNK DASHBOARD DEVELOPER [address] [place], [place] [id number] PCP - General Family Medicine 08/09/23 Trung Bob MD [address] [address] Physician Cardiology 06/10/18 Billposting Supervisor Relationship Specialty Start Date End Date Marianna Wagner, VEHICLE DISMANTLER.SPLUNK DASHBOARD DEVELOPER [address] [place] [address] PCP - General Family Medicine 08/09/23 Trung Bob MD [address] [address] Physician Cardiology 06/10/18 Billposting Supervisor Relationship Specialty Start Date End Date Marianna Wagner, VEHICLE DISMANTLER.SPLUNK DASHBOARD DEVELOPER [address] [place], [place] [id number] PCP - General Family Medicine 08/09/23 Trung Bob MD [address] [place], [place] [address]16- Physician Cardiology 06/10/18 Billposting Supervisor Relationship Specialty Start Date End Date Marianna Wagner VEHICLE DISMANTLER.SPLUNK DASHBOARD DEVELOPER [address] [facility], [place] [id number] PCP - General Family Medicine 08/09/23 Trung Bob MD [address] [address] Physician Cardiology 06/10/18 Billposting Supervisor Relationship Specialty Start Date End Date Marianna Wagner VEHICLE DISMANTLER.SPLUNK DASHBOARD DEVELOPER [address] [place] [address] PCP - General Family Medicine 08/09/23 Trung Bob MD [address] [place] [address] Physician Cardiology 06/10/18 Billposting Supervisor Relationship Specialty Start Date End Date Marianna Wagner, VEHICLE DISMANTLER.SPLUNK DASHBOARD DEVELOPER [address] [place] [address] PCP - General Family Medicine 08/09/23 Trung oBb MD [address] [address] Physician Cardiology 06/10/18 Billposting Supervisor Relationship Specialty Start Date End Date Marianna Wagner VEHICLE DISMANTLER.SPLUNK DASHBOARD DEVELOPER [address] [facility] [place] [id number] PCP - General Family Medicine 08/09/23 Trung Bob MD [address] [place], [place] [address] Physician Cardiology 06/10/18 Billposting Supervisor Relationship Specialty Start Date End Date Marianna Wagner, VEHICLE DISMANTLER.SPLUNK DASHBOARD DEVELOPER [address] [place], [place] [id number] PCP - General Family Medicine 08/09/23 Trung Bob MD [address] [place] [phone] Physician Cardiology 06/10/18 Billposting Supervisor Relationship Specialty Start Date End Date Marianna Wagner, VEHICLE DISMANTLER.SPLUNK DASHBOARD DEVELOPER [address] [place] [address] PCP - General Family Medicine 08/09/23 Trung Bob MD [address] [place] [address] Physician Cardiology 06/10/18 Billposting Supervisor Relationship Specialty Start Date End Date Marianna Wagner, VEHICLE DISMANTLER.SPLUNK DASHBOARD DEVELOPER [address] [place] [address] PCP - General Family Medicine 08/09/23 Trung Bob MD [address] [address] Physician Cardiology 06/10/18 Team Status: Active Member Role Status Dates Dr. Rolan Romero DO Referring Provider Activ e Start: June 25, 2024 Dr. Rolan Romero , DO Emergency Provider Activ e Start: June 25, 2024 Marianna Queden VEHICLE MODIFICATION TECHNICIAN, VEHICLE MODIFICATION TECHNICIAN-C Primary Care Provider Active Start: June 25, 2024 Dr. Conrado Pro , DO Admit Provider Active Start: June 25, 2024 Dr. Conrado Pro , DO Attending Provider Active Start: June 25, 2024 Team Status: Active Member Role Status Dates Dr. Rolan Romero , DO Referring Provider Activ e Start: June 26, 2024 Dr. Rolan Romero , DO Emergency Provider Activ e Start: June 26, 2024 Marianna Queden VEHICLE MODIFICATION TECHNICIAN, VEHICLE MODIFICATION TECHNICIAN-C Primary Care Provider Active Start: June 26, 2024 Dr. Conrado Pro , DO Admit Provider Active Start: June 26, 2024 Dr. Conrado Pro , DO Other Provider Active Start: June 26, 2024 Dr. Melonie De La Rosa , DO Attending Provider Active S tart: June 26, 2024 Dr. Melonie De La Rosa , DO Other Provider Active Start : June 26, 2024 Team Status: Active Member Role Status Dates Dr. Rolan Romero , DO Referring Provider Activ e Start: June 27, 2024 Dr. Rolan Romero , DO Emergency Provider Activ e Start: June 27, 2024 Marianna Quedevyn VEHICLE MODIFICATION TECHNICIAN, VEHICLE MODIFICATION TECHNICIAN-C Primary Care Provider Active Start: June 27, 2024 Dr. Conrado Pro , DO Admit Provider Active Start: June 27, 2024 Dr. Conrado Pro , DO Other Provider Active Start: June 27, 2024 Dr. Melonie De La Rosa , DO Attending Provider Active S tart: June 27, 2024 Dr. Melonie De La Rosa , DO Other Provider Active Start : June 27, 2024 Team Status: Active Member Role Status Dates Dr. Rolan Romero , DO Referring Provider Activ e Start: June 28, 2024 Dr. Rolan Romero , DO Emergency Provider Activ e Start: June 28, 2024 Marianna Queden VEHICLE MODIFICATION TECHNICIAN, VEHICLE MODIFICATION TECHNICIAN-C Primary Care Provider Active Start: June 28, 2024 Dr. Conrado Pro , DO Admit Provider Active Start: June 28, 2024 Dr. Conrado Pro , DO Other Provider Active Start: June 28, 2024 Dr. Melonie De La Rosa , DO Attending Provider Active S tart: June 28, 2024 Dr. Melonie De La Rosa , DO Other Provider Active Start : June 28, 2024 Team Status: Active Member Role Status Dates Marianna Fátima VEHICLE MODIFICATION TECHNICIAN, VEHICLE MODIFICATION TECHNICIAN-C Primary Care Provider Active Start: July 02, 2024 Dr. Narendra Gonzalez , DO Emergency Provider Active Start: July 02, 2024 Dr. Conrado Pro , DO Admit Provider Active Start: July 02, 2024 Dr. Conrado Pro , DO Referring Provider Active Start: July 02, 2024 Dr. Conrado Pro , DO Other Provider Active Start: July 02, 2024 Dr. Melonie De La Rosa , DO Attending Provider Active S tart: July 02, 2024 Dr. Melonie De La Rosa , DO Other Provider Active Start : July 02, 2024 Team Status: Active Member Role Status Dates Marianna Fátima VEHICLE MODIFICATION TECHNICIAN, VEHICLE MODIFICATION TECHNICIAN-C Primary Care Provider Active Start: July 03, 2024 Dr. Narendra Gonzalez , DO Emergency Provider Active Start: July 03, 2024 Dr. Conrado Pro , DO Admit Provider Active Start: July 03, 2024 Dr. Conrado Pro , DO Referring Provider Active Start: July 03, 2024 Dr. Conrado Pro , DO Other Provider Active Start: July 03, 2024 Dr. Chris Aragon , DO Attending Provider Active Start: July 03, 2024 Dr. Chris Aragon , DO Other Provider Active Start: July 03, 2024 Dr. Melonie De La Rosa , DO Other Provider Active Start : July 03, 2024 Team Status: Active Member Role Status Dates Marianna Fátima VEHICLE MODIFICATION TECHNICIAN, VEHICLE MODIFICATION TECHNICIAN-C Primary Care Provider Active Start: July 04, 2024 Dr. Narendra Gonzalez , DO Emergency Provider Active Start: July 04, 2024 Dr. Conrado Pro , DO Admit Provider Active Start: July 04, 2024 Dr. Conrado Pro , DO Referring Provider Active Start: July 04, 2024 Dr. Conrado Pro , DO Other Provider Active Start: July 04, 2024 Dr. Chris Aragon , DO Attending Provider Active Start: July 04, 2024 Dr. Chris Aragon , DO Other Provider Active Start: July 04, 2024 Dr. Melonie De La Rosa , DO Other Provider Active Start : July 04, 2024 Dr. Yaneli Carbone MD Other Provider Active Star t: July 04, 2024 Team Status: Active Member Role Status Dates Marianna Wagner VEHICLE MODIFICATION TECHNICIAN, VEHICLE MODIFICATION TECHNICIAN-C Primary Care Provider Active Start: July 05, 2024 Dr. Narendra Gonzalez , DO Emergency Provider Active Start: July 05, 2024 Dr. Conrado Pro , DO Admit Provider Active Start: July 05, 2024 Dr. Conrado Pro , DO Referring Provider Active Start: July 05, 2024 Dr. Conrado Pro , DO Other Provider Active Start: July 05, 2024 Dr. Chris Aragon , DO Attending Provider Active Start: July 05, 2024 Dr. Chris Aragon , DO Other Provider Active Start: July 05, 2024 Dr. Melonie De La Rosa , DO Other Provider Active Start : July 05, 2024 Dr. Yaneli Carbone MD Other Provider Active Star t: July 05, 2024 Team Status: Active Member Role Status Dates Marianna Wagner VEHICLE MODIFICATION TECHNICIAN, VEHICLE MODIFICATION TECHNICIAN-C Primary Care Provider Active Start: July 06, 2024 Dr. Narendra Gonzalez , DO Emergency Provider Active Start: July 06, 2024 Dr. Conrado Pro , DO Admit Provider Active Start: July 06, 2024 Dr. Conrado Pro , DO Referring Provider Active Start: July 06, 2024 Dr. Conrado Pro , DO Other Provider Active Start: July 06, 2024 Dr. Chris Aragon , DO Attending Provider Active Start: July 06, 2024 Dr. Chris Aragon , DO Other Provider Active Start: July 06, 2024 Dr. Melonie De La Rosa , DO Other Provider Active Start : July 06, 2024 Dr. Yaneli Carbone MD Other Provider Active Star t: July 06, 2024 Billposting Supervisor Relationship Specialty Start Date End Date Marianna Wagner VEHICLE DISMANTLER.SPLUNK DASHBOARD DEVELOPER [address] [place] [address] PCP - General Family Medicine 08/09/23 Trung Bob MD [address] [phone] Physician Cardiology 06/10/18 Radha Etienne, ELIS Primary Care Animal Husbandry Worker 07/07/24 Billposting Supervisor Relationship Specialty Start Date End Date Jenn Call DO [address] [place], [place] [id number] PCP - General Family Medicine 07/11/24 Trung Bob MD [address] [phone] Physician Cardiology 06/10/18 Radha Etienne, ELIS Primary Care Animal Husbandry Worker 07/17/24 07/17/24 Billposting Supervisor Relationship Specialty Start Date End Date Marianna Wagner APRN.SPLUNK DASHBOARD DEVELOPER [address] [place] [address] PCP - General Family Medicine 08/09/23 Trung Bob MD [address] [phone] Physician Cardiology 06/10/18 Radha Etienne, ELIS Primary Care Animal Husbandry Worker 07/07/24 Team Status: Inactive Member Role Status Dates Sigrid Call [facility], DO Primary Care Provider Active Start: July 20, 2024 End: July 20, 2024 Dr. Trung Bob MD Attending Provider Active S tart: July 20, 2024 End: July 20, 2024 Team Status: Active Member Role Status Dates Marianna Wagner VEHICLE MODIFICATION TECHNICIAN, VEHICLE MODIFICATION TECHNICIAN-C Primary Care Provider Active Start: July 12, 2024 Dr. Perez Ribeiro , Emergency Provider Active Start: July 12, 2024 Dr. Melonie De La Rosa DO Admit Provider Active Start : July 12, 2024 Dr. Melonie De La Rosa DO Other Provider Active Start : July 12, 2024 Dr. Denys Fontanez MD Other Provider Active Sta rt: July 12, 2024 Dr. Conrado Morel MD Referring Provider Active Start: July 12, 2024 Dr. Conrado Morel MD Other Provider Active Star t: July 12, 2024 Dian BALDERAS PAMiahC Attending Provider Active Start: July 12, 2024 Team Status: Active Member Role Status Dates Sigrid KELLY, DO Primary Care Provider Active Start: August 01, 2024 Dr. Tierney Macdonald DO Emergency Provider Active Start: August 01, 2024 Dr. Iman Aguayo MD Admit Provider Active St art: August 01, 2024 Dr. Iman Aguayo MD Attending Provider Active Start: August 01, 2024 Team Status: Inactive Member Role Status Dates Sigrid KELLY, DO Primary Care Provider Active Start: August 01, 2024 End: August 03, 2024 Dr. Tierney Macdonald DO Emergency Provider Active Start: August 01, 2024 End: August 03, 2024 Dr. Iman Aguayo MD Admit Provider Active St art: August 01, 2024 End: August 03, 2024 Dr. Iman Aguayo MD Other Provider Active St art: August 01, 2024 End: August 03, 2024 Dr. Valeriy Connell DO Attending Provider Active Start: August 01, 2024 End: August 03, 2024 Dr. Valeriy Ross MD Other Provider Active Start : August 01, 2024 End: August 03, 2024 Team Status: Active Member Role Status Dates Sigrid KELLY, DO Primary Care Provider Active Start: August 02, 2024 Dr. Tierney Macdonald DO Emergency Provider Active Start: August 02, 2024 Dr. Iman Aguayo MD Admit Provider Active St art: August 02, 2024 Dr. Iman Aguayo MD Other Provider Active St art: August 02, 2024 Dr. Valeriy Connell DO Attending Provider Active Start: August 02, 2024 Dr. Valeriy Connell DO Other Provider Active Star t: August 02, 2024 Dr. Valeriy Ross MD Other Provider Active Start : August 02, 2024 Team Status: Active Member Role Status Dates Sigrid KELLY DO Primary Care Provider Active Start: August 02, 2024 Dr. Tierney Macdonald DO Emergency Provider Active Start: August 02, 2024 Dr. Iman Aguayo MD Admit Provider Active St art: August 02, 2024 Dr. Iman Aguayo MD Other Provider Active St art: August 02, 2024 Dr. Valeriy Connell DO Other Provider Active Star t: August 02, 2024 Dr. Valeriy Ross MD Other Provider Active Start : August 02, 2024 ANDREY Chanel Attending Provider Active Star t: August 02, 2024 Team Status: Active Member Role Status Dates Sigrid KELLY, DO Primary Care Provider Active Start: August 03, 2024 Dr. Tierney Macdonald DO Emergency Provider Active Start: August 03, 2024 Dr. Iman Aguayo MD Admit Provider Active St art: August 03, 2024 Dr. Iman Aguayo MD Attending Provider Active Start: August 03, 2024 Dr. Iman Aguayo MD Other Provider Active St art: August 03, 2024 Dr. Valeriy Connell DO Other Provider Active Star t: August 03, 2024 Dr. Valeriy Ross MD Other Provider Active Start : August 03, 2024 Billposting Supervisor Relationship Specialty Start Date End Date Jenn Call DO [address] [place] [address] PCP - General Family Medicine 07/11/24 Trung Bob MD [address] [id number] Physician Cardiology 06/10/18 Billposting Supervisor Relationship Specialty Start Date End Date Jenn Call DO [address] [place], [place] [address] PCP - General Family Medicine 07/11/24 Trung Bob MD [address] [address] Physician Cardiology 06/10/18 Source Comments (unrecognize d section and content) In the event this informatio n is protected by the Federal Confidentiality of Alcohol and Drug Abuse Patient Records regulations: The Federal rules restrict any use of the information to criminally investigate or prosecute any alcohol or drug abuse patient.[facility] the event this information is protected by the Federal Confidentiality of Alcohol and Drug Abuse Patient Records regulations: The Federal rules restrict any use of the information to criminally investigate or prosecute any alcohol or drug abuse patient.[facility] HospitalIn the event this information is protected by the Federal Confidentiality of Alcohol and Drug Abuse Patient Records regulations: The Federal rules restrict any use of the information to criminally investigate or prosecute any alcohol or drug abuse patient.[facility] HospitalIn the event this information is protected by the Federal Confidentiality of Alcohol and Drug Abuse Patient Records regulations: The Federal rules restrict any use of the information to criminally investigate or prosecute any alcohol or drug abuse patient.[facility] HospitalIn the event this information is protected by the Federal Confidentiality of Alcohol and Drug Abuse Patient Records regulations: The Federal rules restrict any use of the information to criminally investigate or prosecute any alcohol or drug abuse patient.[facility] HospitalIn the event this information is protected by the Federal Confidentiality of Alcohol and Drug Abuse Patient Records regulations: The Federal rules restrict any use of the information to criminally investigate or prosecute any alcohol or drug abuse patient.[facility] HospitalIn the event this information is protected by the Federal Confidentiality of Alcohol and Drug Abuse Patient Records regulations: The Federal rules restrict any use of the information to criminally investigate or prosecute any alcohol or drug abuse patient.[facility] HospitalIn the event this information is protected by the Federal Confidentiality of Alcohol and Drug Abuse Patient Records regulations: The Federal rules restrict any use of the information to criminally investigate or prosecute any alcohol or drug abuse patient.[facility] HospitalIn the event this information is protected by the Federal Confidentiality of Alcohol and Drug Abuse Patient Records regulations: The Federal rules restrict any use of the information to criminally investigate or prosecute any alcohol or drug abuse patient.[facility] HospitalIn the event this information is protected by the Federal Confidentiality of Alcohol and Drug Abuse Patient Records regulations: The Federal rules restrict any use of the information to criminally investigate or prosecute any alcohol or drug abuse patient.[facility] HospitalIn the event this information is protected by the Federal Confidentiality of Alcohol and Drug Abuse Patient Records regulations: The Federal rules restrict any use of the information to criminally investigate or prosecute any alcohol or drug abuse patient.[facility] HospitalIn the event this information is protected by the Federal Confidentiality of Alcohol and Drug Abuse Patient Records regulations: The Federal rules restrict any use of the information to criminally investigate or prosecute any alcohol or drug abuse patient.[facility] HospitalIn the event this information is protected by the Federal Confidentiality of Alcohol and Drug Abuse Patient Records regulations: The Federal rules restrict any use of the information to criminally investigate or prosecute any alcohol or drug abuse patient.[facility] HospitalIn the event this information is protected by the Federal Confidentiality of Alcohol and Drug Abuse Patient Records regulations: The Federal rules restrict any use of the information to criminally investigate or prosecute any alcohol or drug abuse patient.[facility] HospitalIn the event this information is protected by the Federal Confidentiality of Alcohol and Drug Abuse Patient Records regulations: The Federal rules restrict any use of the information to criminally investigate or prosecute any alcohol or drug abuse patient.[facility] HospitalIn the event this information is protected by the Federal Confidentiality of Alcohol and Drug Abuse Patient Records regulations: The Federal rules restrict any use of the information to criminally investigate or prosecute any alcohol or drug abuse patient.[facility] HospitalIn the event this information is protected by the Federal Confidentiality of Alcohol and Drug Abuse Patient Records regulations: The Federal rules restrict any use of the information to criminally investigate or prosecute any alcohol or drug abuse patient.[facility] HospitalIn the event this information is protected by the Federal Confidentiality of Alcohol and Drug Abuse Patient Records regulations: The Federal rules restrict any use of the information to criminally investigate or prosecute any alcohol or drug abuse patient.[facility] HospitalIn the event this information is protected by the Federal Confidentiality of Alcohol and Drug Abuse Patient Records regulations: The Federal rules restrict any use of the information to criminally investigate or prosecute any alcohol or drug abuse patient.[facility] HospitalIn the event this information is protected by the Federal Confidentiality of Alcohol and Drug Abuse Patient Records regulations: The Federal rules restrict any use of the information to criminally investigate or prosecute any alcohol or drug abuse patient.[facility] HospitalIn the event this information is protected by the Federal Confidentiality of Alcohol and Drug Abuse Patient Records regulations: The Federal rules restrict any use of the information to criminally investigate or prosecute any alcohol or drug abuse patient.[facility] HospitalIn the event this information is protected by the Federal Confidentiality of Alcohol and Drug Abuse Patient Records regulations: The Federal rules restrict any use of the information to criminally investigate or prosecute any alcohol or drug abuse patient.[facility] HospitalIn the event this information is protected by the Federal Confidentiality of Alcohol and Drug Abuse Patient Records regulations: The Federal rules restrict any use of the information to criminally investigate or prosecute any alcohol or drug abuse patient.[facility] HospitalIn the event this information is protected by the Federal Confidentiality of Alcohol and Drug Abuse Patient Records regulations: The Federal rules restrict any use of the information to criminally investigate or prosecute any alcohol or drug abuse patient.[facility] HospitalIn the event this information is protected by the Federal Confidentiality of Alcohol and Drug Abuse Patient Records regulations: The Federal rules restrict any use of the information to criminally investigate or prosecute any alcohol or drug abuse patient.[facility] HospitalIn the event this information is protected by the Federal Confidentiality of Alcohol and Drug Abuse Patient Records regulations: The Federal rules restrict any use of the information to criminally investigate or prosecute any alcohol or drug abuse patient.[facility] HospitalIn the event this information is protected by the Federal Confidentiality of Alcohol and Drug Abuse Patient Records regulations: The Federal rules restrict any use of the information to criminally investigate or prosecute any alcohol or drug abuse patient.[facility] HospitalIn the event this information is protected by the Federal Confidentiality of Alcohol and Drug Abuse Patient Records regulations: The Federal rules restrict any use of the information to criminally investigate or prosecute any alcohol or drug abuse patient.[facility] HospitalIn the event this information is protected by the Federal Confidentiality of Alcohol and Drug Abuse Patient Records regulations: The Federal rules restrict any use of the information to criminally investigate or prosecute any alcohol or drug abuse patient.[facility] HospitalIn the event this information is protected by the Federal Confidentiality of Alcohol and Drug Abuse Patient Records regulations: The Federal rules restrict any use of the information to criminally investigate or prosecute any alcohol or drug abuse patient.[facility] HospitalIn the event this information is protected by the Federal Confidentiality of Alcohol and Drug Abuse Patient Records regulations: The Federal rules restrict any use of the information to criminally investigate or prosecute any alcohol or drug abuse patient.[facility] HospitalIn the event this information is protected by the Federal Confidentiality of Alcohol and Drug Abuse Patient Records regulations: The Federal rules restrict any use of the information to criminally investigate or prosecute any alcohol or drug abuse patient.[facility] HospitalIn the event this information is protected by the Federal Confidentiality of Alcohol and Drug Abuse Patient Records regulations: The Federal rules restrict any use of the information to criminally investigate or prosecute any alcohol or drug abuse patient.[facility] HospitalIn the event this information is protected by the Federal Confidentiality of Alcohol and Drug Abuse Patient Records regulations: The Federal rules restrict any use of the information to criminally investigate or prosecute any alcohol or drug abuse patient.[facility] HospitalIn the event this information is protected by the Federal Confidentiality of Alcohol and Drug Abuse Patient Records regulations: The Federal rules restrict any use of the information to criminally investigate or prosecute any alcohol or drug abuse patient.[facility] HospitalIn the event this information is protected by the Federal Confidentiality of Alcohol and Drug Abuse Patient Records regulations: The Federal rules restrict any use of the information to criminally investigate or prosecute any alcohol or drug abuse patient.[facility] HospitalIn the event this information is protected by the Federal Confidentiality of Alcohol and Drug Abuse Patient Records regulations: The Federal rules restrict any use of the information to criminally investigate or prosecute any alcohol or drug abuse patient.[facility] HospitalIn the event this information is protected by the Federal Confidentiality of Alcohol and Drug Abuse Patient Records regulations: The Federal rules restrict any use of the information to criminally investigate or prosecute any alcohol or drug abuse patient.[facility] HospitalIn the event this information is protected by the Federal Confidentiality of Alcohol and Drug Abuse Patient Records regulations: The Federal rules restrict any use of the information to criminally investigate or prosecute any alcohol or drug abuse patient.[facility] HospitalIn the event this information is protected by the Federal Confidentiality of Alcohol and Drug Abuse Patient Records regulations: The Federal rules restrict any use of the information to criminally investigate or prosecute any alcohol or drug abuse patient.[facility] HospitalIn the event this information is protected by the Federal Confidentiality of Alcohol and Drug Abuse Patient Records regulations: The Federal rules restrict any use of the information to criminally investigate or prosecute any alcohol or drug abuse patient.[facility] HospitalIn the event this information is protected by the Federal Confidentiality of Alcohol and Drug Abuse Patient Records regulations: The Federal rules restrict any use of the information to criminally investigate or prosecute any alcohol or drug abuse patient.[facility] HospitalIn the event this information is protected by the Federal Confidentiality of Alcohol and Drug Abuse Patient Records regulations: The Federal rules restrict any use of the information to criminally investigate or prosecute any alcohol or drug abuse patient.[facility] HospitalIn the event this information is protected by the Federal Confidentiality of Alcohol and Drug Abuse Patient Records regulations: The Federal rules restrict any use of the information to criminally investigate or prosecute any alcohol or drug abuse patient.[facility] HospitalIn the event this information is protected by the Federal Confidentiality of Alcohol and Drug Abuse Patient Records regulations: The Federal rules restrict any use of the information to criminally investigate or prosecute any alcohol or drug abuse patient.[facility] HospitalIn the event this information is protected by the Federal Confidentiality of Alcohol and Drug Abuse Patient Records regulations: The Federal rules restrict any use of the information to criminally investigate or prosecute any alcohol or drug abuse patient.[facility] HospitalIn the event this information is protected by the Federal Confidentiality of Alcohol and Drug Abuse Patient Records regulations: The Federal rules restrict any use of the information to criminally investigate or prosecute any alcohol or drug abuse patient.[facility] HospitalIn the event this information is protected by the Federal Confidentiality of Alcohol and Drug Abuse Patient Records regulations: The Federal rules restrict any use of the information to criminally investigate or prosecute any alcohol or drug abuse patient.[facility] HospitalIn the event this information is protected by the Federal Confidentiality of Alcohol and Drug Abuse Patient Records regulations: The Federal rules restrict any use of the information to criminally investigate or prosecute any alcohol or drug abuse patient.[facility] HospitalIn the event this information is protected by the Federal Confidentiality of Alcohol and Drug Abuse Patient Records regulations: The Federal rules restrict any use of the information to criminally investigate or prosecute any alcohol or drug abuse patient.[facility] HospitalIn the event this information is protected by the Federal Confidentiality of Alcohol and Drug Abuse Patient Records regulations: The Federal rules restrict any use of the information to criminally investigate or prosecute any alcohol or drug abuse patient.[facility] HospitalIn the event this information is protected by the Federal Confidentiality of Alcohol and Drug Abuse Patient Records regulations: The Federal rules restrict any use of the information to criminally investigate or prosecute any alcohol or drug abuse patient.[facility] HospitalIn the event this information is protected by the Federal Confidentiality of Alcohol and Drug Abuse Patient Records regulations: The Federal rules restrict any use of the information to criminally investigate or prosecute any alcohol or drug abuse patient.[facility] HospitalIn the event this information is protected by the Federal Confidentiality of Alcohol and Drug Abuse Patient Records regulations: The Federal rules restrict any use of the information to criminally investigate or prosecute any alcohol or drug abuse patient.[facility] HospitalIn the event this information is protected by the Federal Confidentiality of Alcohol and Drug Abuse Patient Records regulations: The Federal rules restrict any use of the information to criminally investigate or prosecute any alcohol or drug abuse patient.[facility] HospitalIn the event this information is protected by the Federal Confidentiality of Alcohol and Drug Abuse Patient Records regulations: The Federal rules restrict any use of the information to criminally investigate or prosecute any alcohol or drug abuse patient.[facility] HospitalIn the event this information is protected by the Federal Confidentiality of Alcohol and Drug Abuse Patient Records regulations: The Federal rules restrict any use of the information to criminally investigate or prosecute any alcohol or drug abuse patient.[facility] Reason for Visit (unrecogniz ed section and content) Reason Comments Results Reason Comments Establish Care Previous pt. Of dr. Young at [facility]. Think he may have a seizure or stoke. Went to residential for 5 week. ([facility] in [place]) Diarrhea X 2 months. BM is or prashant . Loss of weight . Goes 8 times a day Reason Comments Patient Question Reason Onset Date Comments Behavioral Health Assistant- Other 08/24/2023 Care Coordination Reason Onset Date Comments Behavioral Health Assistant- Other 09/10/2023 Care Coordination Reason Comments Diarrhea Reason Comments Patient Update Reason Onset Date Comments Behavioral Health Assistant Chronic Care 09/15/2023 Care Coordination Reason Comments Patient Question Reason Comments Results Orders Reason Comments 2 month f/u Abdomen is still bot evan and his bowel movements Reason Comments New Patient Reason Comments Results Specialty Diagnoses / [facility] To [facility] Diagnoses Generalized abdominal pain Diarrhea of presumed infectious origin Weight loss Anemia, unspecified type History of alcohol abuse Elevated liver enzymes Procedures CT ABD/PEL WO IVCON CT ABD & PELVIS W/O CONTRAST Marianna Wagner, VEHICLE DISMANTLER.SPLUNK DASHBOARD DEVELOPER [address] [place] [address] [place] [address] Referral ID Status Reason Start Date Expiration Date Visits Requested Visits Authorized [id number] Pending Review Patient Cleared - Admin/Chair man/Directo r advise to proceed or did not respond 10/19/2023 11/17/2024 2 2 Reason Comments Refill Request Reason Comments Results Orders Reason Comments New Patient Evaluation Specialty Diagnoses / Procedures [facility]erred To Contact Hematology / [facility] DEPARTMENT Diagnoses 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) Medically complex patient Anemia, unspecified type Procedures CONSULT TO HEMATOLOGY OFFICE/OUTPATIENT NEW HIGH MDM 60 MINUTES Marianna Wagner, VEHICLE DISMANTLER.SPLUNK DASHBOARD DEVELOPER [address] [place] [address] Trish Silverio DO [address] [place] [address] Referral ID Status Reason Start Date Expiration Date V isits Requested Visits Authorized [id number] Closed PCP Requested Referral 10/17/2023 10/16/2024 1 1 Reason Onset Date Comments Refill Request 11/26/2023 Reason Comments denial: [id number] PANCREAS W IVCON Specialty Diagnoses / Procedures Referred By Contac t Referred To Contact Radiology / RADIO CT SCAN [facility] Diagnoses Diarrhea, unspecified CT PANCREAS W IVCON Diarrhea, unspecified type [R19.7] Acute pancreatitis, unspecified complication status, unspecified pancreatitis ty... Procedures CT ABDOMEN W/CONTRAST CT WWO ABD2 400 Marianna Wagner, VEHICLE DISMANTLER.SPLUNK DASHBOARD DEVELOPER [address] [place] [address] Scan [facility] [address] [place] [address] Referral ID Status Reason Start Date Expiration Date V isits Requested Visits Authorized [id number] Authorized 11/30/2023 12/30/2023 1 1 Specialty Diagnoses / Procedures Referred By Contac t Referred To Contact CT IMAGING Diagnoses Diarrhea, unspecified type Acute pancreatitis, unspecified complication status, unspecified pancreatitis type Procedures CT PANCREAS W IVCON CT ABDOMEN W/CONTRAST Marianna Wagner, VEHICLE DISMANTLER.SPLUNK DASHBOARD DEVELOPER [address] [place] [address] [place] [address] Referral ID Status Reason Start Date Expiration Date V isits Requested Visits Authorized [id number] Closed Auto-Generate d Referral 11/30/2023 12/30/2023 1 1 Reason Comments Anemia Diarrhea and blood i n the stool Specialty Diagnoses / Procedures Referred By Contac t Referred To Contact [facility] DEPARTMENT Diagnoses Chronic diarrhea Weight loss Procedures CONSULT TO GASTROENTEROLOGY OFFICE/OUTPATIENT [facility] 60 MINUTES Marianna Wagner, VEHICLE DISMANTLER.SPLUNK DASHBOARD DEVELOPER [address] [place] [address] [facility] [address] [place] [address] Referral ID Status Reason Start Date Expiration Date V isits Requested Visits Authorized [id number] Closed PCP Requested Referral 08/09/2023 08/08/2024 1 1 Reason Onset Date Comments Anesthesia Consult 12/31/2023 Reason Comments Abdominal Pain Reason Comments Appointment Reason Onset Date Comments Refill Request 02/08/2024 Reason Comments Lab Orders Reason Onset Date Comments Refill Request 03/08/2024 Reason Onset Date Comments Results 03/27/2024 Reason Comments Returning Patient's Call Reason Comments Established Patient Reason Comments Hypertension Reason Onset Date Comments Transition Of Care 07/07/2024 Hyden D/C Reason Onset Date Comments Transition Of Care 07/17/2024 [facility] D/C Reason Onset Date Comments Transition Of Care 07/11/2024 TCM f/u FOR RECORDS PERTAINING TO PATIENTS WHO ARE OR HAVE BEEN ENROLLED IN A CHEMICAL DEPENDENCY/SUBSTANCEABUSE PROGRAM, SOME INFORMATION MAY BE OMITTED. This clinical summary was aggregated from multiple sources. Caution should be exercised in using it in the provision of clinical care. This summary normalizes information from multiple sources, and as a consequence, information in this document may materially change the coding, format and clinical context of patient data. In addition, data may be omitted in some cases. CLINICAL DECISIONS SHOULD BE BASED ON THE PRIMARY CLINICAL RECORDS. [employer] provides no warranty or guarantee of the accuracy or completeness of information in this document.
[2024-08-29] MEDS: Potassium Chloride Oral Tablet 20 MEQ 40 MEQ PO (02:34)
--- OUTSIDE RECORDS SUMMARY | 2024-08-29 03:01 | XMS RPT_ITS | CCD ---
Author Organization [facility] Care Team Providers Care Dimensional Inspector Name Role Phone BANDAR DAIGLE Unavailable Unavailable DAIGLEBANDAR Rod Unavailable Unavailable NO, DOCTOR ON Unavailable Unavailable [...] Referring Unavailable IMCA Primary Care Unavailable Andreas Pathak Primary Care Provider ZO WAXER OPERATOR - ANDREAS BROWN Primary Care Phys ician Zo CLAM DREDGER, 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 Andreas Thorne Primary Care Pr ovider Dr. Samantha Singer Emergency Provider Dr. Ashley Alvarado Admit Provider Dr. Arielle Crowe Other Provider Dr. Sonali Smyth Attending Provider Dr. Arielle Crowe Attending Provider Zo CLAM DREDGER, 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 Andreas Thorne Primary Care Pr ovider Dr. Trung Bob Attending Provider Dr. Ashley Alvarado Referring Provider Dr. Chris Davila Emergency Provider Dr. Lucas Frausto Admit Provider Dr. Lucas Frausto Attending Provider Dr. Lucas Frausto Other Provider Dr. Refugio Rojas Attending Provider Dr. Refugio Rojas Other Provider Zo CLAM DREDGER, 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 Andreas Thorne Primary Care Pr ovider Zo CLAM DREDGER, 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 Andreas Thorne Referring Provi mary lou Yun West Attending Provider Unavailable [place] CLAM DREDGER, 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 Andreas Thorne Primary Care Pr ovider Dr. Trish Bey Attending Provider Dr. Trish Bey Referring Provider Dr. Samantha Singer Emergency Provider Dr. Valeriy Connell Admit Provider Dr. Valeriy Connell Attending Provider Dr. Valeriy Connell Other Provider Zo CLAM DREDGER, 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 Andreas Thorne Primary Care Pr ovider Dr. [...] Unavailable Dr. Vinh Lomeli Emergency Provider Zo CLAM DREDGER, 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 Andreas Thorne Primary Care Pr ovider Dr. Iman Aguayo Admit Provider Dr. Iman Aguayo Other Provider Dr. Conrado Morel Attending Provider Unavailable Adriel, Dr. Camp Other Provider Unavailable Dr. Mateusz Dutton Attending Provider Dr. Mateusz Dutton Other Provider Koram, Dr. Ashley Washington Admit Provider Korjessica, Dr. Ashley Washington Other Provider Dr. Iman Aguayo Attending Provider Tarik Rounding Nurse, Geremias Unavailable Unavai lable ZO WAXER OPERATOR - GAMEWELL OPERATOR, ANDREAS Rod Primary Care U navailable ZO WAXER OPERATOR - GAMEWELL OPERATOR, ANDREAS Rod Attending U navailable ZO WAXER OPERATOR - GAMEWELL OPERATOR, ANDREAS Rod Primary Care U navailable ZO WAXER OPERATOR - GAMEWELL OPERATOR, ANDREAS Rod Attending U navailable ZO WAXER OPERATOR - GAMEWELL OPERATOR, ANDREAS Rod Attending U navailable ZO WAXER OPERATOR - GAMEWELL OPERATOR, ANDREAS Rod Primary Care U navailable ZO WAXER OPERATOR - GAMEWELL OPERATOR, ANDREAS Rod Attending U navailable ZO WAXER OPERATOR - GAMEWELL OPERATOR, ANDREAS Rod Primary Care U navailable ZO WAXER OPERATOR - GAMEWELL OPERATOR, ANDREAS Rod Primary Care U navailable GINNY FRANCISCO, DR MENDEZ Attending Danielle WAGNER MD, DR MARIELY Love Admitting Kevin WAGNER MD, DR MARIELY Love Consulting Unavai lable ZO WAXER OPERATOR - GAMEWELL OPERATOR, ANDREAS Rod Primary Care U navailable FRANDY FRANCISCO, DR DUNBAR Attending Unavailable ZO WAXER OPERATOR - GAMEWELL OPERATOR, ANDREAS Rod Primary Care U navailable GINNY FRANCISCO, DR MENDEZ Attending Unavailable ZO WAXER OPERATOR - GAMEWELL OPERATOR, ANDREAS Rod Primary Care U navailable ZO WAXER OPERATOR - GAMEWELL OPERATOR, ANDREAS Rod Attending U navailable ZO WAXER OPERATOR - GAMEWELL OPERATOR, ANDREAS Rod Attending U navailable ZO WAXER OPERATOR - GAMEWELL OPERATOR, ANDREAS Rod Primary Care U navailable ZO WAXER OPERATOR - GAMEWELL OPERATOR, ANDREAS Rod Primary Care U navailable ZO WAXER OPERATOR - GAMEWELL OPERATOR, ANDREAS Rod Attending U navailable ZO WAXER OPERATOR - GAMEWELL OPERATOR, ANDREAS Rod Attending U navailable ZO WAXER OPERATOR - GAMEWELL OPERATOR, ANDREAS Rod Primary Care U navailable ZO WAXER OPERATOR - GAMEWELL OPERATOR, ANDREAS Rod Primary Care U navailable FROMMELT DO, MAGDALENA Attending Unavailable RIDER DO, DR MERRICK Alvarez Attending Unavailable ZO WAXER OPERATOR - GAMEWELL OPERATOR, ANDREAS Rod Primary Care U navailable [place] CLAM DREDGER, 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 Andreas Thorne Primary Care Pr ovider Paulino, Dr. Nino Attending Provider Le, Dr. Perez Emergency Provider Dr. Lucas Frausto Admit Provider Jett, Dr. Lucas Fan Attending Provider Dr. Lucas Frausto Other Provider Koram, Dr. Ashley Washington Attending Provider Korjessica, Dr. Ashley Washington Other Provider Zo CLAM DREDGER, 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 Andreas Thorne Primary Care Pr ovider Dr. Trung Bob Attending Provider Le, Dr. Perez Emergency Provider Dr. Lucas Frausto Admit Provider Dr. Lucas Frausto Attending Provider Dr. Lucas Frausto Other Provider Koram, Dr. Ashley Washington Attending Provider Korjessica, Dr. Ashley Washington Other Provider Dr. Carlos Augustin Emergency Provider Dr. Conrado Pro Admit Provider Unavailnelson e Pro, Dr. Camp Other Provider Unavailabl e Adriel, Dr. Camp Attending Provider Unavailable Adriel, Dr. Camp Other Provider Unavailable Dr. Trenton Strong Other Provider [phone] Dr. Alcides Tucker Other Provider Dr. Aramis Palacios Other Provider Dr. Barry Sheehan Other Provider Dr. Aldo Castellano Other Provider Dr. [place] Other Provider Dr. Chen Merrill Other Provider Dr. Mundo Marcelino Other Provider Dr. Meli Miles Other Provider Dr. Tiara Horowitz Other Provider Unavailable Dr. Yunier Allred Other Provider Dr. Jose Pacheco Other Provider [phone] Marquez Elmore Other Provider Dr. Bronson Peterson Other Provider Dr. Toni Dodge Other Provider [phone] Conrado Morel Referring Provider Unavailable Dr. Barry Sheehan Attending Provider Dr. Iman Aguayo Attending Provider [phone] Dr. Maya Melo Other Provider [phone] Dr. Refugio Rojas Attending Provider Dr. Refugio Rojas Other Provider Trung Bob MD Unavailable Queden WAXER OPERATOR.GAMEWELL OPERATOR, Marianna A Primary Care Provider QUEDEN 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, MARIANNA Primary Care Physician [phone] QUEDEN 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, MARIANNA Primary Care Unavailable ANN-MARIE DILLON DO Attending Unavailable QUEDEN, MARIANNA A Referring Unavailable QUEDEN, MARIANNA A Primary Care Unavailable QUEDEN, MARIANNA A Primary Care Unavailable LUCAS DELAROSA Attending Unavailable PROVIDER, UNKNOWN Referring Unavailable QUEDEN, MARIANNA A Referring Unavailable VANDANA EDWARDS Attending Unavailable QUEDEN, MARIANNA A Primary Care Unavailable QUEDEN, MARIANNA A Referring Unavailable QUEDEN, MARIANNA A Primary Care Unavailable RAMY DELGADILLO Referring Unavailable QUEDEN, MARIANNA A Primary Care Unavailable QUEDEN, MARIANNA A Primary Care Unavailable QUEDEN, MARIANNA A Primary Care Unavailable VANDANA EDWARDS Attending Unavailable QUEDEN, MARIANNA A Primary Care Unavailable QUEDEN, MARIANNA A Referring Unavailable SUSANA RAMIREZ E Attending Unavailable QUEDEN, MARIANNA A Primary Care Unavailable QUEDEN, MARIANNA A Referring Unavailable QUEDEN, MARIANNA A Primary Care Unavailable QUEDEN, MARIANNA A Referring Unavailable QUEDEN, MARIANNA A Referring Unavailable QUEDEN, MARIANNA A Primary Care Unavailable Care Physician, No Primary Primary Care Provider Unavailable Paulino FRANCISCO, Dr. Nino Attending Provider Nick RILEY, Dr. Gongora Referring Provider AngyKai RILEY, Dr. Gongora Emergency Provider Queden 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, Marianna Primary Care Provider de Evelio RILEY, Dr. Camp Admit Provider Unavail able de Evelio RILEY, Dr. Camp Attending Provider Unav ailable de Evelio RILEY, Dr. Camp Other Provider Unavail able Dr. Melonie De La Rosa DO Attending Provider Dr. Melonie De La Rosa DO Other Provider Dr. Antony Espitia DO Attending Provider Care Physician, No Primary Primary Care Provider Unavailable Dr. Trung Bob MD Attending Provider AngyDr. Rolan Quinn DO Referring Provider Dr. Rolan Romero DO Emergency Provider Queden 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, Marianna Primary Care Provider de Evelio DO, Dr. Camp Admit Provider Unavail able de Evelio Dr. Conrado RILEY Other Provider Unavail able Dr. Melonie De La Rosa DO Attending Provider Dr. Melonie De La Rosa DO Other Provider Nupur RILEY Dr. Antony Attending Provider Carlos RILEY, Dr. Munguia Emergency [...] Olivier FRANCISCO, Dr. Iman Callahan Other Provider Dr. Valeriy Connell DO Attending Provider Cody FRANCISCO, Dr. Crooks Other Provider Dr. Valeriy Connell DO Other Provider Suyapa Bal Attending Provider Olivier FRANCISCO, Dr. Iman Callahan Attending Provider Conrado Pro Admitting Unavailable de Conrado Fraser Consulting Unavailable Chris Aragon Attending Unavailable Conrado Pro Referring Unavailable Queden CLAM DREDGER, [facility] Primary Care Unavailable Melonie De La Rosa Consulting Unavailable Yaneli Carbone Consulting Unavailable Denys Fontanez Consulting [facility]available [facility] Primary Care Unavailable Conrado Morel Attending Unavailable Melonie De La Rosa Admitting Unavailable Melnoie De La Rosa Consulting Unavailable Conrado Pro Admitting Unavailable Rolan Romero Referring Unavailabl e Melonie De La Rosa Attending Unavailable Conrado Pro Consulting Unavailable Queden CLAM DREDGER, Marianna Primary Care Unavailable de Conrado Fraser Admitting Unavailable Chris Aragon Attending Unavailable Conrado Pro Referring Unavailable de Conrado Fraser Consulting Unavailable Queden CLAM DREDGER, Marianna Primary Care Unavailable Melonie De La Rosa Consulting Unavailable Tona, Farouk Consulting Unavailable Chris Aragon Consulting Unavailable Melonie De La Rosa Attending Unavailable Queden CLAM DREDGER, Marianna Primary Care Unavailable Denys Fontanez Consulting Unavailable Conrado Morel Referring Unavailable Dian Rios Attending Unavailable Queden CLAM DREDGER, Marianna Primary Care Unavailable Daxa De La Rosayn Admitting Unavailable Melonie De La Rosa Consulting Unavailable Conrado Morel Consulting [facility]available [facility] [place] Primary Care Unavailable Iman Aguayo Admitting Unavailable Iman Aguayo Consulting Unavailable Valeriy Connell Attending Unavailable Valeriy Ross Consulting Unavailable Yaneli Carbone Attending Unavailable Queden CLAM DREDGER, Marianna Primary Care Unavailable Conrado Pro Admitting Unavailable Nick, Rolan Referring Unavailabl e Conrado Pro Consulting Unavailable Conrado Pro Attending Unavailable Queden CLAM DREDGER, [facility] Primary Care Unavailable Jakub [facility], [facility] Primary Care Unavailable White, Iman L Admitting Unavailable White, Iman L Consulting Unavailable White, Iman L Attending Unavailable Valeriy Connell Attending Unavailable Valeriy Ross Consulting Unavailable Valeriy Connell Consulting Unavailable Valeriy Connell Referring Unavailable Suyapa Bustos Attending Unavailable Melonie De La Rosa Attending Unavailable Melonie De La Rosa Consulting Unavailable Yaneli Carbone Attending Unavailable Antony Espitia Attending Unavailable Conrado Pro Admitting Unavailable Conrado Pro Referring Unavailable Conrado Pro Consulting Unavailable Conrado Pro Attending Unavailable Fátima CLAM DREDGER, [facility] Primary Care Unavailable Melonie De La Rosa Attending Unavailable Care Physician, No Primary Primary Care Unava ilable Trung Bob Attending Unavailable Trung Bob Attending Unavailable Care Physician, No Primary Primary Care Unava ilable Care Physician, No Primary Primary Care Unava ilable Trung Bob Attending Unavailable [facility], [facility] Primary Care Unavailable Trung Bob Attending Unavailable Antony Espitia Attending Unavailable Conrado Morel Attending Unavailable [facility], [facility] Primary Care Unavailable [facility], [facility] Primary Care Unavailable Melonie De La Rosa Attending Unavailable Melonie D eLa Rosa Referring Unavailable Paulino FRANCISCO, Dr. Nino Attending Provider Dr. Valeriy Connell DO Referring Provider [phone] Dr. Vinh Lomeli MD Emergency Provider Dr. Trish Vila MD Attending Provider [phone] Dr. Trish Vila MD Admit Provider Medications Current Medications Medication Drug Class(es) Dates Sig (Normalized) Sig (Original) amylase 662224 unt / lipase 61773 unt / protease [id number] unt delayed release oral capsule (20 sources) Start: 12-24-2023 dzurrr-inmaaorp-nga lase (CREON 36) 36,000-114,000- 180,000 unit delayed release capsule Indications: Chronic pancreatitis, unspecified pancreatitis type (HCC) Take 2 pills by mouth with first bite of meal and take 1 pill with snacks. Max 10 per day. 300 capsule 3 12/24/2023 Active atorvastatin 10 mg oral tablet (20 sources) HMG-CoA Reductase Inhibitor Start: 10-17-2020 End: 01-13-2022 Start: 11-04-2017 End: 04-10-2024 Start: 06-21-2016 End: 04-02-2017 Blood Glucose Test Machine (11 sources) Start: 05-02-2021 Blood Glucose Test Machine See Instructions, Use as directed Brand type per insurance or patient preference, # 1 EA, 0 Refill(s), Pharmacy: [facility], 176.5, cm, 05/02/21 11:34:00 EDT, Height, 73.2, kg, 05/02/21 13:04:00 EDT, Dosing Weight Start Date: 05/02/21 Status: Ordered Quantity: 1.0 Unit: EA Repeat number: 1 Start: 05-02-2021 Blood Glucose Test Machine See Instructions, Use as directed Brand type per insurance or patient preference, # 1 EA, 0 Refill(s), Pharmacy: [facility], 176.5, cm, 05/02/21 11:34:00 EDT, Height, 73.2, kg, 05/02/21 13:04:00 EDT, Dosing Weight Start Date: 05/02/21 Status: Ordered Blood-Glucose Meter,Continuo us (FREESTYLE MANGO 3 READER) [facility] (20 sources) Start: 08-29-2023 Blood-Glucose Meter,Continuous (FREESTYLE MANGO 3 READER) [facility] Indications: Type 2 diabetes mellitus with complication, [...] Sensor (FREEST YLE MANGO 3 SENSOR) daniel Indications: Type 2 [...] qWeek, # 13 cap(s), 1 Refill(s), Pharmacy: [facility], Vitamin D deficiency, 176, cm, 07/02/22 10:24:00 EDT, Height Start Date: 07/02/22 Stop Date: 12/29/22 Status: Ordered dapagliflozin 10 mg oral tab let (20 sources) Sodium-Glucose Cotransporter 2 Inhibitor Start: 09-30-2021 End: 02-08-2024 Start: 07-04-2021 Farxiga 10 mg oral tablet Dose : 10 mg = 1 tab(s), Oral, qDay, # 30 tab(s), 5 Refill(s), Pharmacy: [facility], 176.5, cm, 05/15/21 8:40:00 EDT, Height Start [...] sensors, # 2 EA, 3 Refill(s), [facility], 176, cm, 03/29/23 13:58:00 EST, Height, 67.6, kg, 03/29/23 13:58:00 EST, Dosing Weight Start Date: 04/28/23 Status: Ordered Quantity: 2.0 Unit: EA Repeat number: 4 Start: 04-28-2023 DME MISCellane ous See Instructions, Libre2 sensors. Use to check blood sugar, replace every 14 days. Dispense #2 sensors, # 2 EA, 3 Refill(s), Pharmacy: [facility], 176, cm, 03/29/23 13:58:00 EST, Height, 67.6, kg, 03/29/23 13:58:00 EST, Dosing Weight Start Date: 04/28/23 Status: Ordered Start: 01-11-2023 DME MISCellane ous See Instructions, Patient needs a refill on Freestyle Mango 2 sensors., # 2 EA, 3 Refill(s), Pharmacy: [facility], 180, cm, 10/15/22 11:38:00 EDT, Height, 66.8, kg, 10/15/22 11:38:00 EDT, Dosing Weight Start Date: 01/11/23 Status: Ordered Quantity: 2.0 Unit: EA Repeat number: 4 Start: 01-11-2023 DME MISCellane ous See Instructions, Patient needs a refill on Freestyle Mango 2 sensors., # 2 EA, 3 Refill(s), Pharmacy: [facility], 180, cm, 10/15/22 11:38:00 EDT, Height, 66.8, kg, 10/15/22 11:38:00 EDT, Dosing Weight Start Date: 01/11/23 Status: Ordered Start: 11-17-2022 DME MISCellane ous See Instructions, Pen needles. Use with Lantus insulin pen for daily injection. dispense #1 box + 11 refills., # 100 EA, 11 Refill(s), Pharmacy: [facility], 180, cm, 10/15/22 11:38:00 EDT, Height, 66.8, kg, 10/15/22 11:38:00 EDT, Dosing Weight Start Date: 11/17/22 Status: Ordered Quantity: 100.0 Unit: EA Repeat number: 12 Start: 11-17-2022 DME MISCellane ous See Instructions, Pen needles. Use with Lantus insulin pen for daily injection. dispense #1 box + 11 refills., # 100 EA, 11 Refill(s), Pharmacy: [facility], 180, cm, 10/15/22 11:38:00 EDT, Height, 66.8, kg, 10/15/22 11:38:00 EDT, Dosing Weight Start Date: 11/17/22 Status: Ordered Start: 09-29-2022 DME MISCellane ous See Instructions, Patient needs a refill on Freestyle Mango 2 sensors., # 2 EA, 3 Refill(s), Pharmacy: [facility], 176, cm, 07/02/22 10:24:00 EDT, Height, 67.7, kg, 07/02/22 10:18:00 EDT, Dosing Weight Start Date: 09/29/22 Status: Ordered Start: 09-10-2022 DME MISCellane ous See Instructions, Freestyle Mango 2 Sensor, # 1 EA, 0 Refill(s), Pharmacy: [facility], 176, cm, 07/02/22 10:24:00 EDT, Height, 67.7, kg, 07/02/22 10:18:00 EDT, Dosing Weight Start Date: 09/10/22 Status: Ordered Quantity: 1.0 Unit: EA Repeat number: 1 Start: 09-10-2022 DME MISCellane ous See Instructions, Freestyle Mango 2 Sensor, # 1 EA, 0 Refill(s), Pharmacy: [facility], 176, cm, 07/02/22 10:24:00 EDT, Height, 67.7, kg, 07/02/22 10:18:00 EDT, Dosing Weight Start Date: 09/10/22 Status: Ordered Start: 08-15-2022 DME MISCellane ous See Instructions, Libre2 reader. Use with sensor to check blood sugar. Dispense #1 reader, 0 refills, # 1 EA, 0 Refill(s), Pharmacy: [facility], 176, cm, 07/02/22 10:24:00 EDT, Height, 67.7 Start Date: 08/15/22 Status: Ordered Quantity: 1.0 Unit: EA Repeat number: 1 Start: 08-15-2022 DME MISCellane ous See Instructions, Libre2 reader. Use with sensor to check blood sugar. Dispense #1 reader, 0 refills, # 1 EA, 0 Refill(s), Pharmacy: [facility], 176, cm, 07/02/22 10:24:00 EDT, Height, 67.7 Start Date: 08/15/22 Status: Ordered Start: 08-15-2022 DME MISCellane ous See Instructions, Libre2 sensors. Use to check blood sugar, replace every 14 days. Dispense #2 sensors with 11 refills, # 1 EA, 0 Refill(s), Pharmacy: [facility], 176, , 07/02/22 10:24:00 EDT, Height, 67.7 Start Date: 08/15/22 Status: Ordered Start: 08-15-2022 DME MISCellane ous See Instructions, Pen needles. Use with Lantus insulin pen for daily injection. dispense #1 box + 11 refills., # 1 EA, 0 Refill(s), Pharmacy: [facility], 176, , 07/02/22 10:24:00 EDT, Height, 67.7 Start Date: 08/15/22 Status: Ordered ferrous sulfate 325 mg oral tablet (20 sources) Start: 10-14-2023 End: 01-20-2024 take 1 tablet by mouth once daily ferrous sulfate (FEROSUL) 325 mg (65 mg iron) tablet Indications: Anemia, unspecified type TAKE ONE TABLET BY MOUTH EVERY DAY 90 tablet 1 01/20/2024 Active folic acid 1 mg oral tablet (12 sources) Start: 05-20-2023 Start: 06-10-2021 folic acid 1 m g oral tablet Dose : 1 mg = 1 tab(s), Oral, qDay, # 30 tab(s), 0 Refill(s) Start Date: 06/10/21 Status: Ordered Start: 06-01-2021 take 1 mg by mouth once daily Folic Acid Active 1 MG PO DAILY@0800 30 June 01, 2021 8:44am furosemide 20 mg oral tablet (19 sources) Loop Diuretic Start: 07-06-2024 End: 08-03-2024 [...] 14, 2022 12:47am for neuropathy from diabetes iv contrast (will be provided with radiology [...] Active 2 NMA PO TWICE A DAY May 20, 2023 12:00am levoFLOXacin 250 mg oral tablet (3 sources) Quinolone Antimicrobial Start: 10-17-2023 End: 10-24-2023 take 1 tablet by mouth once daily levoFLOXacin (LEVAQUIN) 250 mg tablet Indications: E. coli UTI Take 1 tablet by mouth once daily for 7 days. 7 tablet 10/17/2023 10/24/2023 Active Webiog-Zzsbldyf-Lww lase (4 sources) Start: 09-08-2019 take 1 capsule by mouth five times daily Owujnm-Erfhwvrm-Jes lase Active 1 CAP PO 5 TIMES DAILY September 08, 2019 1:14pm Rhweci-Jndibmav-Rcn lase (Creon) 24,000-76,000 -120,000 unit Capsule,Delayed Release(Dr/Ec) (1 source) Start: 06-28-2024 take 07144-94206 capsules by mouth three times daily at mealtime Ztlatw-Tuhdphxa-Juf lase (Creon) 24,000-76,000 -120,000 unit Capsule,Delayed Release(Dr/Ec) [...] 03/18/23 Status: Completed Start: 03-15-2023 End: 07-06-2024 Start: 10-15-2022 End: 05-20-2023 Start: 10-17-2020 End: [...] SUGAR, # 100 strip, 11 Refill(s), Pharmacy: [facility] [id number], 180.3, cm, 04/13/19 10:19:00 EST, Height, 81.7, [...] snack, # 450 cap(s), 2 Refill(s), Pharmacy: [facility], Chronic pancreatitis, 180.3, cm, 10/04/20 9:00:00 EDT, Height, kg, 10/04/20 9:00:00 EDT, Dosing Weight Start Date: 10/04/20 Stop Date: 07/01/21 Status: Ordered pantoprazole 40 mg delayed release oral tablet (20 sources) Proton Pump Inhibitor Start: 05-20-2023 End: 06-25-2024 Pen needles 5 mm (12 sources) Start: 04-09-2022 Pen needles 5 mm See Instructions, qs for 1 month supply, # 1 EA, 0 Refill(s), Pharmacy: [facility], DM type 2, goal HbA1c Start Date: 04/09/22 Status: Ordered Quantity: 1.0 Unit: EA Repeat number: 1 Indication: Type 2 diabetes mellitus without complications Start: 04-09-2022 Pen needles 5 mm See Instructions, qs for 1 month supply, # 1 EA, 0 Refill(s), Pharmacy: [facility], DM type 2, goal HbA1c Start Date: 04/09/22 Status: Ordered Start: 07-05-2020 Pen needles 5 mm See Instructions, qs for 1 month supply, # 1 EA, 11 Refill(s), Pharmacy: [facility], DM type 2, goal HbA1c Start Date: 07/05/20 Status: Ordered polyethylene glycol 3350 279741 mg / potassium chloride 2970 mg / sodium bicarbonate 6740 mg / sodium chloride 5860 mg / sodium sulfate 26308 mg powder for oral solution (1 source) Osmotic Laxative Start: 12-24-2023 End: 12-24-2023 peg 3350-Electrolytes (GOLYTELY) 236-22.74-6.74 -5.86 gram suspension Take 4,000 mL by mouth one time only for 1 dose. Refer to printed prep instructions from your provider. 4000 mL 12/24/2023 12/24/2023 Active sacubitril 24 mg / valsartan 26 mg oral tablet (2 sources) Angiotensin 2 Receptor Thiago Start: 08-03-2024 spironolactone 25 mg oral tablet (17 sources) Aldosterone Antagonist Start: 05-20-2023 End: 07-06-2024 [...] 01, 2021 8:44am Start: 05-11-2020 End: 06-10-2020 vancomycin 125 mg oral capsule (3 sources) [...] qDay, # 90 tab(s), 1 Refill(s), Pharmacy: [facility], Anemia of chronic disease, 176, cm, 07/02/22 10:24:00 EDT, Height Start Date: 07/02/22 Status: Ordered (20 sources) Start: 08-29-2024 Start: 08-01-2024 Start: 06-30-2024 Start: 06-28-2024 End: 08-29-2024 Start: 06-28-2024 Start: 05-20-2023 End: 08-01-2024 Start: [...] 1253, Preprocedure famotidine 40 mg oral tablet (20 sources) Histamine-2 Receptor Antagonist Start: 03-15-2023 End: 05-20-2023 Start: 10-01-2022 Pepcid 40 mg o ral tablet Dose : 40 mg = 1 tab(s), Oral, qHS, # 30 tab(s), 1 Refill(s), Pharmacy: [facility], GERD (gastroesophageal reflux disease), 176, cm, 10/01/22 10:16:00 EDT, Height, kg, 10/01/22 10:16:00 EDT, Dosing Weight Start Date: 10/01/22 Status: Ordered Start: 05-04-2022 End: 06-03-2022 Pepcid 40 mg oral tablet Dos e : 40 mg = 1 tab(s), Oral, qHS, # 30 tab(s), 0 Refill(s), Pharmacy: [facility], Epigastric abdominal pain GERD [...] mL, 2 Refill(s), 01/13/22 8:51:00 EST, Pharmacy: [facility], DM type 2, goal [...] April 20, 2023 3:31pm 3 ml insulin glargine 100 unt/ml pen injector (20 sources) Insulin Analog Start: 11-14-2022 End: 07-06-2024 Start: 11-14-2022 Insulin Glargi ne (Lantus Solostar [...] 08/10/2023 Discontinued (Adjust Sig - Block E-Cancel) 3 ml insulin glulisine, human 100 unt/ml [...] 11-08-2021 End: 05-20-2023 Start: 11-08-2021 End: 05-20-2023 ramipril 10 mg oral capsule (20 sources) Angiotensin Converting Enzyme Inhibitor Start: 10-17-2020 End: 07-06-2024 Start: 10-17-2020 End: 05-20-2023 take 1 capsule by mouth twice daily Ramipril 10 mg capsule Discontinued 10 mg PO TWICE A DAY October 17, 2020 12:00am May 20, 2023 9:38am Start: 08-24-2018 End: 05-11-2020 terbinafine 250 mg oral tablet (20 sources) Allylamine Antifungal Start: 09-30-2021 End: 11-05-2021 therapeutic multivitamin (THERA VITAMIN) tablet (1 source) Start: 03-28-2016 End: 08-10-2023 take 1 tablet by mouth once daily at breakfast therapeutic multivitamin (THERA VITAMIN) tablet Take 1 tablet by mouth daily with breakfast. 0 03/28/2016 08/10/2023 Discontinued (Discontinued by Patient) traMADol hydrochloride 50 mg oral tablet (20 sources) Opioid Agonist Start: 05-25-2023 End: 08-01-2024 Problems Active Problems Problem Classification Problem Date Documented Da te Episodic/Chronic Abdominal pain (20 sources) Epigastric pain; 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: [Abdominal pain] Onset: 4 05-04-2022 Episodic Acute and unspecified renal failure (20 sources) Acute renal failure syndrome; 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: [Acute kidney failure, unspecified] Onset: 7 05-13-2023 Episodic Acute cerebrovascular disease (20 sources) Cerebrovascular accident; 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: [Cerebral infarction, unspecified] Onset: 4 11-16-2021 Chronic Adjustment disorders (20 sources) Reactive depression (situational); 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: [Adjustment disorder with depressed mood] 09-09-2019 Chronic Administrative/social admission (20 sources) Discharge status; 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: [Other problems related to medical facilities and other health care] Onset: 7 03-28-2016 Episodic Alcohol-related disorders (20 sources) Alcoholism; 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: [Chronic [...] Coronary atherosclerosis; 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: [Atherosclerotic heart disease of [place] coronary artery without angina pectoris] Onset: 7 Chronic Deficiency and other anemia (8 sources) Anemia of chronic disease 12-09-2018 Chronic Deficiency and other anemia (1 source) Anemia of chronic renal failure; 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: [Anemia in chronic kidney disease] Chronic Deficiency and other anemia (14 sources) Pancytopenia; 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: [Other pancytopenia] 07-03-2024 Chronic [...] E Codes: Adverse effects of medical drugs (19 sources) Adverse reaction to drug; 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: [Adverse [...] sources) Dehydration; 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: [Dehydration] Onset: 7 Resolved: Episodic Headache; including migraine (20 sources) Acute headache; 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: [Acute headache] Onset: 7 03-10-2016 Episodic Heart valve disorders (20 sources) History of aortic valve replacement; 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: [Presence of xenogenic heart valve] Onset: 4 09-06-2018 Chronic Comment on above: aortic valve replace ment with mechanical valve 01/22/15; redo aortic valve replacement with a Bovine Valve [facility] 2017 Hypertension with complications and secondary hypertension (2 sources) 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; 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: [Hypertensive heart and chronic kidney disease without heart failure, with stage 1 through stage 4 chronic kidney disease, or unspecified chronic kidney disease] Onset: 5 Chronic Inflammation; infection of eye (except that caused by tuberculosis or sexually transmitteddisease) (15 sources) Conjunctivitis; 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: [Unspecified conjunctivitis] Onset: 5 07-01-2024 Episodic Intestinal infection (1 source) Clostridium difficile diarrhea; 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: [Enterocolitis due to Clostridium difficile, not specified as recurrent] 10-17-2023 Episodic Intestinal obstruction without hernia (14 sources) Partial obstruction of intestine; 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: [Partial [...] Episodic Other disorders of stomach and duodenum (13 sources) Disorder of stomach; 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: [Other diseases of stomach and duodenum] 04-20-2023 Episodic Other disorders of stomach and duodenum (2 sources) Other diseases of stomach and duodenum; 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: [Other specified disorders of stomach and duodenum] 04-20-2023 Episodic Other endocrine disorders (12 sources) 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 Other endocrine disorders (13 sources) Hypoglycemia; 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: [Hypoglycemia, unspecified] 11-24-2022 Chronic [...] [Diarrhea, unspecified] 05-04-2022 Episodic Other gastrointestinal disorders (14 sources) H/O: gallstones; 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: [Personal history of other diseases of the digestive system] 11-01-2022 Episodic Other gastrointestinal disorders (20 sources) Ascites; 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: [Other ascites] 04-20-2023 Episodic Other gastrointestinal disorders (3 sources) Other ascites; 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: [Other ascites] Onset: 5 04-20-2023 Episodic Other gastrointestinal disorders (4 sources) Diarrhea of presumed infectious origin; 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: [Diarrhea, unspecified] 09-24-2023 Episodic Other hematologic conditions (16 sources) Alcohol-related macrocytosis; 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: [Other specified diseases [...] elsewhere classified] Onset: 4 08-09-2023 Chronic Other liver diseases (2 sources) Pleural effusion associated with hepatic disorder; 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: [Liver disease, unspecified] 08-29-2024 Chronic Other lower respiratory disease (20 sources) Dyspnea; 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: [Shortness of breath] 11-16-2021 Episodic Other lower respiratory disease (20 sources) Pleuritic pain; 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: [Pleurodynia] 11-16-2021 Episodic Other lower respiratory disease (20 sources) Hypoxia; 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: [Hypoxemia] 05-09-2023 Episodic Other lower respiratory disease (3 sources) Hypoxemia; 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: [Hypoxemia] Onset: 5 05-09-2023 Episodic Other lower respiratory disease (14 sources) Respiratory insufficiency; 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: [Other abnormalities of [...] Episodic Other nutritional; endocrine; and metabolic disorders (19 sources) History of hypercholesterolemia; 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: [Personal history [...] Onset: 5 Episodic Septicemia (except in labor) (11 sources) Sepsis; 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: [Sepsis, unspecified organism] 05-10-2023 [...] 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: [Diaphragmatic hernia] Onset: 4 09-06-2018 Episodic Calculus of urinary tract (20 sources) [...] Dysuria; 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: [Dysuria] Onset: 4 08-09-2023 Episodic Heart valve disorders (20 sources) Pansystolic murmur; 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: [Cardiac murmur, unspecified] Onset: 4 07-05-2020 Episodic Comment on above: Echocardiogram [facility] (03/2020): 1. Left ventricular systolic function is [...] sources) Long-term current use of insulin; 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: [prison (current) use of insulin] Onset: 7 08-09-2023 Episodic Other aftercare (2 sources) prison (current) use of insulin; 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: [Type 2 [...] Range Facility Absolute lymphocyte countOrd ered By: Vinh Lomeli on 08-28-2024 Lymphocytes Auto (Unsp spec) [#/Vol] 1.03 10*3/uL 0.83-4.51 [facility] Anion gap in Serum or Plasma Ordered By: Vinh Lomeli on 08-28-2024 Anion gap [Moles/Vol] 13 mmol/L 5-15 [facility] Automated lymphocyte count a s percentage of total leukocytesOrdered By: Vinh Lomeli on 08-28-2024 Lymphocytes/100 WBC Auto (Unsp spec) 21.3 % 19-41 [facility] BUN/creatinine ratioOrdered By: Vinh Lomeli on 08-28-2024 Urea nitrogen/Creatinine [Mass ratio] 7.3 mg/mg Low 10-20 [facility] Basophil percentageOrdered B y: Vinh Lomeli on 08-28-2024 Basophils/100 WBC (Bld) 1.2 % High 0-[address] [facility] Bilirubin Test strip Ql (U)O rdered By: Vinh Lomeli on 08-28-2024 Bilirubin Ql (U) Negative Negative [facility] Carbon dioxide, total [Moles /volume] in Central venous bloodOrdered By: Vinh Lomeli on 08-28-2024 CO2 [Moles/Vol] 21.9 mmol/L 21.0-32.0 [facility] Chloride assayOrdered By: Garfield Lomeli on 08-28-2024 Chloride [Moles/Vol] 102 mmol/L 98-108 [facility] Eosinophil percentageOrdered By: Vinh Lomeli on 08-28-2024 Eosinophils/100 WBC (Bld) 1.4 % 0-5 [facility] Erythrocyte distribution wid th ratioOrdered By: Vinh Lomeli on 08-28-2024 Erythrocyte distribution width (RBC) [Ratio] 13.8 % 11.6-14.6 [facility] Erythrocyte distribution wid th standard deviationOrdered By: Vinh Lomeli on 08-28-2024 Erythrocyte distribution width (RBC) [Ratio] 53.1 fl High 35.1-43.9 [facility] Glomerular filtration rate ( GFR) estimation/1.73 sq m using serum, plasma, or whole bOrdered By: Vinh Lomeli on 08-28-2024 GFR/1.73 sq M.predicted among non-blacks MDRD (S/P/Bld) [Vol rate/Area] 76 mL/min/{1.73_m2} >60 [facility] Hematocrit Auto (Bld) [Volum e fraction]Ordered By: Vinh Lomeli on 08-28-2024 Hematocrit (Bld) [Volume fraction] 31.6 % Low 40-54 [facility] Hemoglobin measurementOrdere d By: Vinh Lomeli on 08-28-2024 Hemoglobin (Bld) [Mass/Vol] 10.1 g/dL Low 13.0-16.5 [facility] Immature granulocytes/100 WB C Auto (Bld)Ordered By: Vinh Lomeli on 08-28-2024 Immature granulocytes/100 WBC (Bld) 0.200 % 0.0-0.9 [facility] Ketones Test strip Ql (U)Ord ered By: Vinh Lomeli on 08-28-2024 Ketones Ql (U) Negative Negative [facility] MCV (mean corpuscular volume ) determinationOrdered By: Vinh Lomeli on 08-28-2024 MCV (RBC) [Entitic vol] 105.3 fL High 80-[address] [facility] Mean corpuscular hemoglobin (MCH) determinationOrdered By: Vinh Lomeli on 08-28-2024 MCH (RBC) [Entitic mass] 33.7 pg High 27.0-32.0 [facility] Monocyte percentageOrdered B y: Vinh Lomeli on 08-28-2024 Monocytes/100 WBC (Bld) 7.6 % 0-[address] [facility] Mucus LM Ql (Urine sed)Order ed By: Vinh Lomeli on 08-28-2024 Mucus Ql (Urine sed) 0 SEEN /hpf [facility] Neutrophil percentageOrdered By: Vinh Lomeli on 08-28-2024 Neutrophils/100 WBC (Bld) 68.3 % 47-70 [facility] Nitrite Test strip Ql (U)Ord ered By: Vinh Lomeli on 08-28-2024 Nitrite Ql (U) Negative Negative [facility] Platelet countOrdered By: Garfield Lomeli on 08-28-2024 Platelets (Bld) [#/Vol] 181 10*3/uL 150-450 [facility] Potassium measurement (mass/ volume)Ordered By: Vinh Lomeli on 08-28-2024 Potassium (Unsp spec) [Mass/Vol] 3.1 mmol/L Low 3.3-5.1 [facility] Protein Test strip Ql (U)Ord ered By: Vinh Lomeli on 08-28-2024 Protein Ql (U) Negative Negative [facility] RBC Auto (Bld) [#/Vol]Ordere d By: Vinh Lomeli on 08-28-2024 RBC (Bld) [#/Vol] 3.00 10*6/uL Low 4.6-6.2 [facility] Serum creatinine measurement (mass/volume)Ordered By: Vinh Lomeli on 08-28-2024 Creatinine [Mass/Vol] 1.10 mg/dL 0.70-1.20 [facility] Serum glucose measurement (m ass/volume)Ordered By: Vinh Lomeli on 08-28-2024 Glucose [Mass/Vol] 369 mg/dL High 70-99 [facility] Serum or plasma calcium luciana urement (mass/volume)Ordered By: Vinh Lomeli on 08-28-2024 Calcium [Mass/Vol] 8.0 mg/dL 7.6-11.0 [facility] Serum or plasma urea nitroge n measurement (mass/volume)Ordered By: Vinh Lomeli on 08-28-2024 Urea nitrogen [Mass/Vol] 8 mg/dL 4-19 [facility] Sodium levelOrdered By: Vinh Lomeli on 08-28-2024 Sodium [Moles/Vol] 137 mmol/L 133-145 [facility] Squamous epithelial cells de tection in urine sediment by light microscopyOrdered By: Vinh Lomeli on 08-28-2024 Epithelial cells.squamous LM Ql (Urine sed) 0 SEEN /hpf 0-5 [facility] Troponin T.cardiac [Mass/vol ume] in Serum or Plasma by High sensitivity methodOrdered By: Vinh Lomeli on 08-28-2024 Troponin T.cardiac High sensitivity method [Mass/Vol] 57 ng/L High <22 [facility] Troponin T.cardiac High sensitivity method [Mass/Vol] 67 ng/L High <22 [facility] Urine clarityOrdered By: Jasvir Lomeli on 08-28-2024 Clarity (U) Clear Clear [facility] Urine color determinationOrd ered By: Vinh Lomeli on 08-28-2024 Color (U) Straw Yellow [facility] Urine glucose detectionOrder ed By: Vinh Lomeli on 08-28-2024 Glucose Ql (U) 1000 mg/dl High Normal [facility] Urine leukocyte esterase det ection by dipstickOrdered By: Vinh Lomeli on 08-28-2024 Leukocyte esterase Test strip Ql (U) Negative Negative [facility] Urine pHOrdered By: Vinh chaidez on 08-28-2024 pH (U) 7.0 [pH] 5.0 - 8.0 [facility] Urine sediment bacteria coun t by microscopy (number/high power field)Ordered By: Vinh Lomeli on 08-28-2024 Bacteria LM.HPF (Urine sed) [#/Area] 0 /[HPF] None Seen [facility] Urine specific gravity measu rementOrdered By: Vinh Lomeli on 08-28-2024 Specific gravity (U) [Rel density] 1.010 1.002-1.030 [facility] Urine urobilinogen measureme ntOrdered By: Vinh Lomeli on 08-28-2024 Urobilinogen Ql (U) Normal mg/dl Normal [facility] White blood cell (WBC) count Ordered By: Vinh Lomeli on 08-28-2024 WBC (Bld) [#/Vol] 4.8 10*3/uL 4.4-11.0 [facility] White blood cell countOrdere d By: Vinh Lomeli on 08-28-2024 White blood cell count 0-5 SEEN /hpf 0-5 [facility] Absolute lymphocyte countOrd ered By: Valeriy Connell on 08-03-2024 Lymphocytes Auto (Unsp spec) [#/Vol] 0.89 10*3/uL 0.83-4.51 [facility] Anion gap in Serum or Plasma Ordered By: Valeriy Connell on 08-03-2024 Anion gap [Moles/Vol] 8 mmol/L 5-15 [facility] Automated lymphocyte count a s percentage of total leukocytesOrdered By: Valeriy Connell on 08-03-2024 Lymphocytes/100 WBC Auto (Unsp spec) 21.3 % 19-41 [facility] BUN/creatinine ratioOrdered By: Valeriy Connell on 08-03-2024 Urea nitrogen/Creatinine [Mass ratio] 10.4 mg/mg 10-20 [facility] Basophil percentageOrdered B y: Valeriy Connell on 08-03-2024 Basophils/100 WBC (Bld) 1.2 % High 0-[address] [facility] Carbon dioxide, total [Moles /volume] in Central venous bloodOrdered By: Valeriy Connell on 08-03-2024 CO2 [Moles/Vol] 23.3 mmol/L 21.0-32.0 [facility] Chloride assayOrdered By: Alex Connell on 08-03-2024 Chloride [Moles/Vol] 107 mmol/L 98-108 [facility] Eosinophil percentageOrdered By: Valeriy Connell on 08-03-2024 Eosinophils/100 WBC (Bld) 2.2 % 0-5 [facility] Erythrocyte distribution wid th ratioOrdered By: Valeriy Connell on 08-03-2024 Erythrocyte distribution width (RBC) [Ratio] 14.4 % 11.6-14.6 [facility] Erythrocyte distribution wid th standard deviationOrdered By: Valeriy Connell on 08-03-2024 Erythrocyte distribution width (RBC) [Ratio] 58.9 fl High 35.1-43.9 [facility] Glomerular filtration rate ( GFR) estimation/1.73 sq m using serum, plasma, or whole bOrdered By: Valeriy Connell on 08-03-2024 GFR/1.73 sq M.predicted among non-blacks MDRD (S/P/Bld) [Vol rate/Area] 58 mL/min/{1.73_m2} Low >60 [facility] Glucose measurement at bedsi deOrdered By: Valeriy Connell on 08-03-2024 Glucose [Mass/Vol] 304 mg/dL High 74-106 [facility] Hematocrit Auto (Bld) [Volum e fraction]Ordered By: Valeriy Connell on 08-03-2024 Hematocrit (Bld) [Volume fraction] 29.3 % Low 40-54 [facility] Hemoglobin measurementOrdere d By: Valeriy Connell on 08-03-2024 Hemoglobin (Bld) [Mass/Vol] 9.3 g/dL Low 13.0-16.5 [facility] Immature granulocytes/100 WB C Auto (Bld)Ordered By: Valeriy Connell on 08-03-2024 Immature granulocytes/100 WBC (Bld) 0.200 % 0.0-0.9 [facility] MCV (mean corpuscular volume ) determinationOrdered By: Valeriy Connell on 08-03-2024 MCV (RBC) [Entitic vol] 110.6 fL High 80-[address] [facility] Mean corpuscular hemoglobin (MCH) determinationOrdered By: Valeriy Connell on 08-03-2024 MCH (RBC) [Entitic mass] 35.1 pg High 27.0-32.0 [facility] Monocyte percentageOrdered B y: Valeriy Connell on 08-03-2024 Monocytes/100 WBC (Bld) 10.6 % High 0-[address] [facility] Neutrophil percentageOrdered By: Valeriy Connell on 08-03-2024 Neutrophils/100 WBC (Bld) 64.5 % 47-70 [facility] Platelet countOrdered By: Alex Connell on 08-03-2024 Platelets (Bld) [#/Vol] 147 10*3/uL Low 150-450 [facility] Potassium measurement (mass/ volume)Ordered By: Valeriy Connell on 08-03-2024 Potassium (Unsp spec) [Mass/Vol] 4.4 mmol/L 3.3-5.1 [facility] RBC Auto (Bld) [#/Vol]Ordere d By: Valeriy Connell on 08-03-2024 RBC (Bld) [#/Vol] 2.65 10*6/uL Low 4.6-6.2 [facility] Serum creatinine measurement (mass/volume)Ordered By: Valeriy Connell on 06-26-2025 Creatinine [Mass/Vol] 1.38 mg/dL High 0.70-1.20 [facility] Serum glucose measurement (m ass/volume)Ordered By: Valeriy Connell on 08-03-2024 Glucose [Mass/Vol] 151 mg/dL High 70-99 [facility] Serum or plasma calcium luciana urement (mass/volume)Ordered By: Valeriy Connell on 08-03-2024 Calcium [Mass/Vol] 8.0 mg/dL 7.6-11.0 [facility] Serum or plasma urea nitroge n measurement (mass/volume)Ordered By: Valeriy Connell on 08-03-2024 Urea nitrogen [Mass/Vol] 14 mg/dL 4-19 [facility] Sodium levelOrdered By: Valeriy Connell on 08-03-2024 Sodium [Moles/Vol] 139 mmol/L 133-145 [facility] White blood cell (WBC) count Ordered By: Valeriy Connell on 08-03-2024 WBC (Bld) [#/Vol] 4.2 10*3/uL Low 4.4-11.0 [facility] Bedside Glucoseon 08-02-2024 FINGERSTICK GLU 208 mg/dL High 74-106 [facility] Comment on above: Result Comment: DAYANARA GEMENT OF PATIENT CARE PER NURSING PROTOCOL Performed By: #### L 501.080 ####[facility] [address] [facility] [phone] FINGERSTICK GLU 120 mg/dL High [address] [place] [address] Comment on above: Result Comment: DAYANARA GEMENT OF PATIENT CARE PER NURSING PROTOCOL Performed By: #### L 501.080 ####[facility] [address] [facility] [address] FINGERSTICK GLU 271 mg/dL High [address] [place] [address] Comment on above: Result Comment: DAYANARA GEMENT OF PATIENT CARE PER NURSING PROTOCOL Performed By: #### L 501.080 ####[facility] [address] [facility] [address] FINGERSTICK GLU 126 mg/dL High [address] [facility] Comment on above: Result Comment: DAYANARA MORENO OF PATIENT CARE PER NURSING PROTOCOL Performed By: #### L 501.080 ####[facility] [address] [place], [address] Bilirubin, totalOrdered By: Iman Aguayo on 08-02-2024 Bilirubin [Mass/Vol] 0.31 mg/dL 0.00-1.30 [facility] CBC W/Diff, Automatedon 07-10 Absolute Lymph 0.93 X10 3/uL Normal 0.83-4.51 [facility] Comment on above: Performed By: #### L [id number], [id number], L100.0100 ####[facility] [address] [place], [address] Absolute Neut 3.2 X10 3/uL Normal 2.0-7.7 [facility] Comment on above: Performed By: #### L [id number], [id number], L100.0100 ####[facility] [address] [place], [address] Basophils/100 WBC (Bld) 1.8 % High 0-[address] [facility] Comment on above: Performed By: #### L [id number], [id number], L100.0100 ####[facility] [address] [place], [address] Eosinophils/100 WBC (Bld) 2.0 % Normal 0-5 [facility] Comment on above: Performed By: #### L [id number], [id number], L100.0100 ####[facility] [address] [place], [address] Erythrocyte distribution width (RBC) [Ratio] 14.5 % Normal 11.6-14.6 [facility] Comment on above: Performed By: #### L [id number], [id number], L100.0100 ####[facility] [address] [place], [address] Hematocrit (Bld) [Volume fraction] 29.4 % Low 40-54 [facility] Comment on above: Performed By: #### L [id number], [id number], L100.0100 ####[facility] [address] [place], [address] Hemoglobin (Bld) [Mass/Vol] 9.7 g/dL Low 13.0-16.5 [facility] Comment on above: Performed By: #### L [id number], [id number], L100.0100 ####[facility] [address] [place], [address] IG% 0.200 Normal 0.0-0.9 [facility] Comment on above: Result Comment: IG% - Immature Granulocytes (promyelocytes, myelocytes andmetamyelocytes) > 1% indicates that a LEFT SHIFT is Present. Performed By: #### L [id number], [id number], L100.0100 ####[facility] [address] [place], [address] Lymphocytes/100 WBC (Bld) 18.5 % Low 19-41 [facility] Comment on above: Performed By: #### L [id number], [id number], L100.0100 ####[facility] [address] [place], [address] MCH (RBC) [Entitic mass] 36.3 pg High 27.0-32.0 [facility] Comment on above: Performed By: #### L [id number], [id number], L100.0100 ####[facility] [address] [place], [address] MCHC (RBC) [Mass/Vol] 33.0 g/dL Normal 32-36 [facility] Comment on above: Performed By: #### L 500.4050, [id number], L100.0100 ####[facility] [address] [place], [address] MCV (RBC) [Entitic vol] 110.1 fL High 80-[address] [facility] Comment on above: Performed By: #### L [id number], [id number], L100.0100 ####[facility] [address] [place], [address] Monocytes/100 WBC (Bld) 12.9 % High 0-[address] [facility] Comment on above: Performed By: #### L 500.4050, [id number], L100.0100 ####[facility] [address] [place], [address] Neutrophils/100 WBC (Bld) 64.6 % Normal 47-70 [facility] Comment on above: Performed By: #### L [id number], [id number], L100.0100 ####[facility] [address] [place], [address] Nucleated RBC (Bld) [#/Vol] 0 10*3/uL Normal 0-5 [facility] Comment on above: Performed By: #### L [id number], [id number], L100.0100 ####[facility] [address] [place], [address] Platelet mean volume (Bld) [Entitic vol] 11.5 fL Normal 6.2-12.0 [facility] Comment on above: Performed By: #### L [id number], [id number], L100.0100 ####[facility] [address] [place], [address] Platelets (Bld) [#/Vol] 159 10*3/uL Normal 150-450 [facility] Comment on above: Performed By: #### L [id number], [id number], L100.0100 ####[facility] [address] [place], [address] RBC (Bld) [#/Vol] 2.67 10*6/uL Low 4.6-6.2 [facility] Comment on above: Performed By: #### L [id number], [id number], L100.0100 ####[facility] [address] [place], [address] RDW SD 59.0 fl High 35.1-43.9 [facility] Comment on above: Performed By: #### L 500.4050, [id number], L100.0100 ####[facility] [address] [place], [address] WBC (Bld) [#/Vol] 5.0 10*3/uL Normal 4.4-11.0 [facility] Comment on above: Performed By: #### L 500.4050, [id number], L100.0100 ####[facility] [address] [place], [address] Calculated very low density lipoprotein (VLDL) cholesterol measurementOrdered By: Iman Aguayo on 08-02-2024 Calculated very low density lipoprotein (VLDL) cholesterol measurement 26 mg/dL 5-40 [facility] Comprehensive Metabolic Prof ilon 08-02-2024 Albumin [Mass/Vol] 2.6 g/dL Low 3.4-4.8 [facility] Comment on above: Performed By: #### L 500.4050, [id number], L100.0100 ####[facility] [address] [place], [address] Albumin/Globulin [Mass ratio] 1.0 {ratio} Normal 0.9-2.4 [facility] Comment on above: Performed By: #### L 500.4050, [id number], L100.0100 ####[facility] [address] [place], [address] ALK PHOS 101 U/L Normal 40-129 [facility] Comment on above: Performed By: #### L 500.4050, [id number], L100.0100 ####[facility] [address] [place], [address] ALT [Catalytic activity/Vol] 13 U/L Normal <=46 [facility] Comment on above: Performed By: #### L 500.4050, [id number], L100.0100 ####[facility] [address] [place], [address] AST [Catalytic activity/Vol] 35 U/L Normal <=37 [facility] Comment on above: Performed By: #### L 500.4050, [id number], L100.0100 ####[facility] [address] [place], [place], [id number] Bilirubin [Mass/Vol] 0.31 mg/dL Normal 0.00-1.30 [facility] Comment on above: Performed By: #### L 500.4050, L500.4100, L100.0100 ####[facility] [address] [place], [address] BUN/CRE 8.5 RATIO Low 10-20 [facility] Comment on above: Performed By: #### L 500.4050, L500.4100, L100.0100 ####[facility] [address] [place], [address] Calcium [Mass/Vol] 8.1 mg/dL Normal 7.6-11.0 [facility] Comment on above: Performed By: #### L 500.4050, L500.4100, L100.0100 ####[facility] [address] [place], [address] Chloride [Moles/Vol] 105 mmol/L Normal 98-108 [facility] Comment on above: Performed By: #### L 500.4050, L500.4100, L100.0100 ####[facility] [address] [place], [address] CO2 [Moles/Vol] 22.3 mmol/L Normal 21.0-32.0 [facility] Comment on above: Performed By: #### L 500.4050, L500.4100, L100.0100 ####[facility] [address] [place], [address] Creatinine [Mass/Vol] 1.09 mg/dL Normal 0.70-1.20 [facility] Comment on above: Performed By: #### L 500.4050, L500.4100, L100.0100 ####[facility] [address] [place], [address] ECRCL 61.32 ml/min Normal 50-250 [facility] Comment on above: Performed By: #### L 500.4050, L500.4100, L100.0100 ####[facility] [address] [place], [address] GAP 11 Normal 5-15 [facility] Comment on above: Performed By: #### L 500.4050, L500.4100, L100.0100 ####[facility] [address] [place], [address] GFR/1.73 sq M.predicted among non-blacks MDRD (S/P/Bld) [Vol rate/Area] 77 mL/min/{1.73_m2} Normal >60 [facility] Comment on above: Result Comment: mL/m in/1.73m2 CKD-EPI Creatinine Equation (2020) Performed By: #### L 500.4050, L500.4100, L100.0100 ####[facility] [address] [place], [address] Globulin (S) [Mass/Vol] 2.6 g/dL Normal 2.2-4.[address] [facility] Comment on above: Performed By: #### L 500.4050, L500.4100, L100.0100 ####[facility] [address] [place], [address] Glucose [Mass/Vol] 123 mg/dL High 70-99 [facility] Comment on above: Performed By: #### L 500.4050, L500.4100, L100.0100 ####[facility] [address] [place], [address] Potassium [Moles/Vol] 3.5 mmol/L Normal 3.3-5.1 [facility] Comment on above: Performed By: #### L 500.4050, L500.4100, L100.0100 ####[facility] [address] [place], [address] Sodium [Moles/Vol] 138 mmol/L Normal 133-145 [facility] Comment on above: Performed By: #### L 500.4050, L500.4100, L100.0100 ####[facility] [address] [place], [address] T PROT 5.1 g/dL Low 5.9-8.4 [facility] Comment on above: Performed By: #### L 500.4050, L500.4100, L100.0100 ####[facility] [address] [place], [address] Urea nitrogen [Mass/Vol] 9 mg/dL Normal 4-19 [facility] Comment on above: Performed By: #### L 500.4050, L500.4100, L100.0100 ####[facility] [address] [place], [address] Consultation - Surgicalon Consultation - Surgical Normal [facility] Electrocardiogram reportOrde red By: Trung Bob on 08-02-2024 EKG study [facility] Work Phone: [phone] 08-02-2024 Trop T High Sen 106 ng/L Invalid Interpretation Code <=22 [facility] Comment on above: Result Comment: Crit ical Result(s) Called at: 0224 by: MATTHEW HUBER TO RNJGALLOWAY.??Results read back by same. Performed By: #### L 499.0042 ####[facility] [address] [place], [place], [address] L499.0043on 08-02-2024 Trop T High Sen 95 ng/L Invalid Interpretation Code <=22 [facility] Comment on above: Result Comment: Crit ical Result(s) Called at: 0447 by: MATTHEW HUBER TO [facility]. ??Results read back by same. Performed By: #### L 499.0043 ####[facility] [address] [place], [address] LDL calc ser/plasOrdered By: Iman Aguayo on 08-02-2024 Cholesterol in LDL [Mass/Vol] 41 mg/dL [facility] Lipid Profileon 08-02-2024 CHOL:HDL 3.06 Normal [facility] Comment on above: Performed By: #### L 500.4050, L500.4100, L100.0100 ####[facility] [address] [place], [address] Cholesterol [Mass/Vol] 100 mg/dL Normal <=200 [facility] Comment on above: Result Comment: Chol esterol level, Desirable <200 mg/dLBorderline high cholesterol 200-239 mg/dLHigh cholesterol >=240 mg/dLRecommendations of the NCEP Adult Treatment Panel for thefollowing risk-cutoff thresholds for the [place] Americanpopulation. Performed By: #### L 500.4050, L500.4100, L100.0100 ####[facility] [address] [place], [address] Cholesterol in HDL [Mass/Vol] 33 mg/dL Low [facility] Comment on above: Result Comment: Lisa onal Cholesterol Education Program (NCEP) guidelines:<40 mg/dL: Low HDL-cholesterol (major risk factor for CHD)>= 60 mg/dL: High HDL-cholesterol (negative risk factor forCHD)HDL-cholesterol is affected by a number of factors, e.g.smoking, exercise, hormones, sex and age. Performed By: #### L 500.4050, L500.4100, L100.0100 ####[facility] [address] [place], [address] Cholesterol in LDL [Mass/Vol] 41 mg/dL Normal [facility] Comment on above: Result Comment: Bord qndhbu=923-473 mg/dL Higher Jvnp=222 mg/dL or greater Performed By: #### L 500.4050, L500.4100, L100.0100 ####[facility] [address] [place], [address] Cholesterol in VLDL [Mass/Vol] 26 mg/dL Normal 5-40 [facility] Comment on above: Performed By: #### L 500.4050, L500.4100, L100.0100 ####[facility] [address] [place], [address] Triglyceride [Mass/Vol] 132 mg/dL Normal [facility] Comment on above: Result Comment: The drugs N-Acetylcysteine and Metamizole may falselydepress this assay.Normal range: <150 mg/dLBorderline High: 150-199 mg/dLHigh: 200-499 mg/dLVery High: >500 mg/dL Performed By: #### L 500.4050, L500.4100, L100.0100 ####[facility] [address] [place], [address] No Panel InformationOrdered By: Iman dominguez 08-02-2024 35 U/L <38 [facility] Serum globulin measurementOr dered By: Iman Aguayo on 08-02-2024 Globulin (S) [Mass/Vol] 2.6 g/dL 2.2-4.[address] [facility] Serum or plasma alanine padilla otransferase (ALT) measurementOrdered By: Iman Aguayo on 08-02-2024 ALT [Catalytic activity/Vol] 13 U/L <47 [facility] Serum or plasma albumin luciana urement (mass/volume)Ordered By: Iman Aguayo on 08-02-2024 Albumin [Mass/Vol] 2.6 g/dL Low 3.4-4.8 [facility] Serum or plasma albumin/glob ulin mass ratioOrdered By: Iman Aguayo on 08-02-2024 Albumin/Globulin [Mass ratio] 1.0 {ratio} 0.9-2.4 [facility] Serum or plasma alkaline nolan sphatase measurementOrdered By: Iman Aguayo on 08-02-2024 ALP [Catalytic activity/Vol] 101 U/L 40-129 [facility] Serum or plasma cholesterol in HDL measurement (mass/volume)Ordered By: Iman Aguayo on 08-02-2024 Cholesterol in HDL [Mass/Vol] 33 mg/dL Low >40 [facility] Serum or plasma cholesterol measurement (mass/volume)Ordered By: Iman Aguayo on 08-02-2024 Cholesterol [Mass/Vol] 100 mg/dL <201 [facility] TSH DL <= 0.005 mIU/L QnOrde red By: Iman Aguayo on 08-02-2024 TSH Qn 2.140 uIU/mL 0.300-4.200 [facility] Thyroid Stim Hormone (TSH)on 08-02-2024 TSH 2.140 uIU/mL Normal 0.300-4.200 [facility] Comment on above: Performed By: #### L 501.9569 ####[facility] [address] [place], [address] Total proteinOrdered By: Aut lester Aguayo on 08-02-2024 Protein [Mass/Vol] 5.1 g/dL Low 5.9-8.4 [facility] Troponin T.cardiac [Mass/vol ume] in Serum or Plasma by High sensitivity methodOrdered By: Iman Aguayo on 08-02-2024 Troponin T.cardiac High sensitivity method [Mass/Vol] 95 ng/L High <22 [facility] Troponin T.cardiac High sensitivity method [Mass/Vol] 106 ng/L High <22 [facility] 12 Lead EKGon 08-01-2024 12 Lead EKG Normal [facility] Abdomen/Pelvis W IV Cont ONL Yon 08-01-2024 Abdomen/Pelvis W IV Cont ONLY Normal [facility] Absolute lymphocyte countOrd ered By: Tierney Macdonald on 08-01-2024 Lymphocytes Auto (Unsp spec) [#/Vol] 0.87 10*3/uL 0.83-4.51 [facility] Anion gap in Serum or Plasma Ordered By: Tierney Macdonald on 08-01-2024 Anion gap [Moles/Vol] 16 mmol/L High 5-15 [facility] Automated blood erythrocyte countOrdered By: Tierney Macdonald on 08-01-2024 RBC (Bld) [#/Vol] 3.08 10*6/uL Low 4.6-6.2 [facility] Comment on above: Performed By: #### L 100.0100, L503.7505, L500.4050, L501.2450, L300.8000 ####[facility] [address] [place], [place], [address] Automated blood hematocrit ( percentage)Ordered By: Tierney Macdonald on 08-01-2024 Hematocrit (Bld) [Volume fraction] 34.0 % Low 40-54 [facility] Comment on above: Performed By: #### L 100.0100, L503.7505, L500.4050, L501.2450, L300.8000 ####[facility] [address] [facility] [address] [place], [place], [id number] Automated lymphocyte count a s percentage of total leukocytesOrdered By: Tierney Macdonald on 08-01-2024 Lymphocytes/100 WBC Auto (Unsp spec) 16.1 % Low 19-41 [facility] BUN/creatinine ratioOrdered By: Tierneysuzette Macdonald on 08-01-2024 Urea nitrogen/Creatinine [Mass ratio] 7.7 mg/mg Low 10-20 [facility] Basophil percentageOrdered B y: Tierneysuzette Macdonald on 08-01-2024 Basophils/100 WBC (Bld) 1.3 % High 0-[address] [facility] Comment on above: Performed By: #### L 100.0100, L503.7505, L500.4050, L501.2450, L300.8000 ####[facility] [address] [place], [address] Bedside Glucoseon 08-01-2024 FINGERSTICK GLU 229 mg/dL High 74-106 [facility] Comment on above: Result Comment: DAYANARA MORENO OF PATIENT CARE PER NURSING PROTOCOL Performed By: #### L 501.080 ####[facility] [address] [place], [address] Bilirubin, totalOrdered By: Tierneysuzette Macdonald on 08-01-2024 Bilirubin [Mass/Vol] 0.37 mg/dL 0.00-1.30 [facility] CBC W/Diff, Automatedon 07-10 Absolute Lymph 0.87 X10 3/uL Normal 0.83-4.51 [facility] Comment on above: Performed By: #### L 100.0100, L503.7505, L500.4050, L501.2450, L300.8000 ####[facility] [address] [place], [address] Absolute Neut 4.0 X10 3/uL Normal 2.0-7.7 [facility] Comment on above: Performed By: #### L 100.0100, L503.7505, L500.4050, L501.2450, L300.8000 ####[facility] [address] [place], [address] IG% 0.400 Normal 0.0-0.9 [facility] Comment on above: Result Comment: IG% - Immature Granulocytes (promyelocytes, myelocytes andmetamyelocytes) > 1% indicates that a LEFT SHIFT is Present. Performed By: #### L 100.0100, L503.7505, L500.4050, L501.2450, L300.8000 ####[facility] [address] [place], [address] Lymphocytes/100 WBC (Bld) 16.1 % Low 19-41 [facility] Comment on above: Performed By: #### L 100.0100, L503.7505, L500.4050, L501.2450, L300.8000 ####[facility] [address] [place], [address] MCHC (RBC) [Mass/Vol] 32.4 g/dL Normal 32-36 [facility] Comment on above: Performed By: #### L 100.0100, L503.7505, L500.4050, L501.2450, L300.8000 ####[facility] [address] [place], [address] Nucleated RBC (Bld) [#/Vol] 0 10*3/uL Normal 0-5 [facility] Comment on above: Performed By: #### L 100.0100, L503.7505, L500.4050, L501.2450, L300.8000 ####[facility] [address] [place], [address] Platelet mean volume (Bld) [Entitic vol] 11.9 fL Normal 6.2-12.0 [facility] Comment on above: Performed By: #### L 100.0100, L503.7505, L500.4050, L501.2450, L300.8000 ####[facility] [address] [place], [address] RDW SD 58.4 fl High 35.1-43.9 [facility] Comment on above: Performed By: #### L 100.0100, L503.7505, L500.4050, L501.2450, L300.8000 ####[facility] [address] [place], [address] CTA Chest W/WO Contraston CTA Chest W/WO Contrast Normal [facility] Carbon dioxide, total [Moles /volume] in Central venous bloodOrdered By: Tierney Macdonald on 08-01-2024 CO2 [Moles/Vol] 18.6 mmol/L Low 21.0-32.0 [facility] Chest PA and Lateralon 08-01 Chest PA and Lateral Normal [facility] Chloride assayOrdered By: Sudeep Macdonald on 08-01-2024 Chloride [Moles/Vol] 103 mmol/L 98-108 [facility] Comprehensive Metabolic Prof ilon 08-01-2024 Albumin [Mass/Vol] 3.0 g/dL Low 3.4-4.8 [facility] Comment on above: Performed By: #### L 100.0100, L503.7505, L500.4050, L501.2450, L300.8000 ####[facility] [address] [place], [address] Albumin/Globulin [Mass ratio] 0.9 {ratio} Normal 0.9-2.4 [facility] Comment on above: Performed By: #### L 100.0100, L503.7505, L500.4050, L501.2450, L300.8000 ####[facility] [address] [place], [address] ALK PHOS 121 U/L Normal 40-129 [facility] Comment on above: Performed By: #### L 100.0100, L503.7505, L500.4050, L501.2450, L300.8000 ####[facility] [address] [place], [address] ALT [Catalytic activity/Vol] 20 U/L Normal <=46 [facility] Comment on above: Performed By: #### L 100.0100, L503.7505, L500.4050, L501.2450, L300.8000 ####[facility] [address] [place], [address] AST [Catalytic activity/Vol] 48 U/L High <=37 [facility] Comment on above: Result Comment: Hemo lysis present, Results??could be affected.?? Performed By: #### L 100.0100, L503.7505, L500.4050, L501.2450, L300.8000 ####[facility] [address] [place], [address] Bilirubin [Mass/Vol] 0.37 mg/dL Normal 0.00-1.30 [facility] Comment on above: Performed By: #### L 100.0100, L503.7505, L500.4050, L501.2450, L300.8000 ####[facility] [address] [place], [address] BUN/CRE 7.7 RATIO Low 10-20 [facility] Comment on above: Performed By: #### L 100.0100, L503.7505, L500.4050, L501.2450, L300.8000 ####[facility] [address] [place], [address] Calcium [Mass/Vol] 8.4 mg/dL Normal 7.6-11.0 [facility] Comment on above: Performed By: #### L 100.0100, L503.7505, L500.4050, L501.2450, L300.8000 ####[facility] [address] [place], [address] Chloride [Moles/Vol] 103 mmol/L Normal 98-108 [facility] Comment on above: Performed By: #### L 100.0100, L503.7505, L500.4050, L501.2450, L300.8000 ####[facility] [address] [place], [address] CO2 [Moles/Vol] 18.6 mmol/L Low 21.0-32.0 [facility] Comment on above: Performed By: #### L 100.0100, L503.7505, L500.4050, L501.2450, L300.8000 ####[facility] [address] [place], [address] Creatinine [Mass/Vol] 1.17 mg/dL Normal 0.70-1.20 [facility] Comment on above: Performed By: #### L 100.0100, L503.7505, L500.4050, L501.2450, L300.8000 ####[facility] [address] [place], [address] GAP 16 High 5-15 [facility] Comment on above: Performed By: #### L 100.0100, L503.7505, L500.4050, L501.2450, L300.8000 ####[facility] [address] [place], [address] GFR/1.73 sq M.predicted among non-blacks MDRD (S/P/Bld) [Vol rate/Area] 70 mL/min/{1.73_m2} Normal >60 [facility] Comment on above: Result Comment: mL/m in/1.73m2 CKD-EPI Creatinine Equation (2020) Performed By: #### L 100.0100, L503.7505, L500.4050, L501.2450, L300.8000 ####[facility] [address] [place], [address] Globulin (S) [Mass/Vol] 3.3 g/dL Normal 2.2-4.2 [facility] Comment on above: Performed By: #### L 100.0100, L503.7505, L500.4050, L501.2450, L300.8000 ####[facility] [address] [place], [address] Glucose [Mass/Vol] 159 mg/dL High 70-99 [facility] Comment on above: Performed By: #### L 100.0100, L503.7505, L500.4050, L501.2450, L300.8000 ####[facility] [address] [place], [address] Potassium [Moles/Vol] 3.8 mmol/L Normal 3.3-5.1 [facility] Comment on above: Result Comment: Hemo lysis present, Results??could be affected.?? Performed By: #### L 100.0100, L503.7505, L500.4050, L501.2450, L300.8000 ####[facility] [address] [place], [address] Sodium [Moles/Vol] 137 mmol/L Normal 133-145 [facility] Comment on above: Performed By: #### L 100.0100, L503.7505, L500.4050, L501.2450, L300.8000 ####[facility] [address] [place], [address] T PROT 6.3 g/dL Normal 5.9-8.4 [facility] Comment on above: Performed By: #### L 100.0100, L503.7505, L500.4050, L501.2450, L300.8000 ####[facility] [address] [place], [address] Urea nitrogen [Mass/Vol] 9 mg/dL Normal 4-19 [facility] Comment on above: Performed By: #### L 100.0100, L503.7505, L500.4050, L501.2450, L300.8000 ####[facility] [address] [place], [place], [id number] D-Dimer Quantitative (DVT/PE )on 08-01-2024 D-DIMER QUANT 1.39 FEU/ug/m Invalid Interpretation Code 0.27-0.49 [facility] Comment on above: Result Comment: CRIT ICAL VALUE CALLED TO SEBASTIAN LOWE08/01/24 1635 Angie Knox.RESULTS READ BACK BY SAME.D-Dimer ELEVATED (>0.49): Additional studies and clinicalassessments are indicated to conclude diagnosis of:Deep Vein Thrombosis (DVT) or Pulmonary Embolism (PE) Performed By: #### L 100.0100, L503.7505, L500.4050, L501.2450, L300.8000 ####[facility] [address] [place], [place], [id number] Emergency Department Summary on 08-01-2024 Emergency Department Summary Normal [facility] Eosinophil percentageOrdered By: Tierney Macdonald on 08-01-2024 Eosinophils/100 WBC (Bld) 0.9 % Normal 0-5 [facility] Comment on above: Performed By: #### L 100.0100, L503.7505, L500.4050, L501.2450, L300.8000 ####[facility] [address] [place], [place], [id number] Erythrocyte distribution wid th ratioOrdered By: Tierney Macdonald on 08-01-2024 Erythrocyte distribution width (RBC) [Ratio] 14.3 % Normal 11.6-14.6 [facility] Comment on above: Performed By: #### L 100.0100, L503.7505, L500.4050, L501.2450, L300.8000 ####[facility] [address] [place], [place], [id number] Erythrocyte distribution wid th standard deviationOrdered By: Tierney Macdonald on 08-01-2024 Erythrocyte distribution width (RBC) [Ratio] 58.4 fl High 35.1-43.9 [facility] Glomerular filtration rate ( GFR) estimation/1.73 sq m using serum, plasma, or whole bOrdered By: Tierney Macdonald on 08-01-2024 GFR/1.73 sq M.predicted among non-blacks MDRD (S/P/Bld) [Vol rate/Area] 70 mL/min/{1.73_m2} >60 [facility] H AND P Exam - Hospitaliston 08-01-2024 H&P Exam - Hospitalist Normal [facility] Hemoglobin measurementOrdere d By: Tierney Macdonald on 08-01-2024 Hemoglobin (Bld) [Mass/Vol] 11.0 g/dL Low 13.0-16.5 [facility] Comment on above: Performed By: #### L 100.0100, L503.7505, L500.4050, L501.2450, L300.8000 ####[facility] [address] [place], [address] Immature granulocytes/100 WB C Auto (Bld)Ordered By: Tierney Macdonald on 08-01-2024 Immature granulocytes/100 WBC (Bld) 0.400 % 0.0-0.9 [facility] L501.4021on 08-01-2024 Trop T High Sen 96 ng/L Invalid Interpretation Code <=22 [facility] Comment on above: Result Comment: Crit ical Result(s) Called at: 2340 by: MATTHEW HUBER TO RNJSNOW.??Results read back by same. Performed By: #### L 501.4021 ####[facility] [address] [place], [address] L503.7505on 08-01-2024 Natriuretic peptide B (Bld) [Mass/Vol] 47446 pg/mL High <=900 [facility] Comment on above: Result Comment: Hear t Failure Unlikely: < 300 pg/mLHeart Failure Likely< 50 Years: > 450 pg/mL50-75 Years: > 900 pg/mL>75 Years: > 1800 pg/mL Performed By: #### L 100.0100, L503.7505, L500.4050, L501.2450, L300.8000 ####[facility] [address] [place], [address] Lipaseon 08-01-2024 Lipase [Catalytic activity/Vol] 9 U/L Low 13-75 [facility] Comment on above: Result Comment: Mary Anne zamorano note:LIPASE revised reference range effective 22.New Lipase methodology. Expected to produce lower valuesthan the previous assay method.NEW Reference Range: 13 - 75 U/L Performed By: #### L 100.0100, L503.7505, L500.4050, L501.2450, L300.8000 ####[facility] [address] [place], [address] MCV (mean corpuscular volume ) determinationOrdered By: Tierney Macdonald on 08-01-2024 MCV (RBC) [Entitic vol] 110.4 fL High 80-[address] [facility] Comment on above: Performed By: #### L 100.0100, L503.7505, L500.4050, L501.2450, L300.8000 ####[facility] [address] [place], [address] Magnesiumon 08-01-2024 Magnesium [Mass/Vol] 2.2 mg/dL Normal 1.5-2.2 [facility] Comment on above: Order Comment: Comme nts: May add to ED labsComments: may add to ED labs Performed By: #### L 501.5200, L501.2300 ####[facility] [address] [place], [address] Magnesium measurement (mass/ volume)Ordered By: Iman Aguayo on 08-01-2024 Magnesium (Unsp spec) [Mass/Vol] 2.2 mg/dL 1.5-2.2 [facility] Mean corpuscular hemoglobin (MCH) determinationOrdered By: Tierney Macdonald on 08-01-2024 MCH (RBC) [Entitic mass] 35.7 pg High 27.0-32.0 [facility] Comment on above: Performed By: #### L 100.0100, L503.7505, L500.4050, L501.2450, L300.8000 ####[facility] [address] [place], [address] Monocyte percentageOrdered B y: Tierney Macdonald on 08-01-2024 Monocytes/100 WBC (Bld) 8.0 % Normal 0-[address] [facility] Comment on above: Performed By: #### L 100.0100, L503.7505, L500.4050, L501.2450, L300.8000 ####[facility] [address] [place], [address] Natriuretic peptide.B prohor irene N-Terminal [Mass/volume] in Serum or PlasmaOrdered By: Tierney Macdonald on 08-01-2024 Natriuretic peptide.B prohormone N-Terminal [Mass/Vol] 58657 pg/mL High <900 [facility] Neutrophil percentageOrdered By: Tierney Macdonald on 08-01-2024 Neutrophils/100 WBC (Bld) 73.3 % High 47-70 [facility] Comment on above: Performed By: #### L 100.0100, L503.7505, L500.4050, L501.2450, L300.8000 ####[facility] [address] [place], [address] No Panel InformationOrdered By: Tierney Macdonald on 08-01-2024 48 U/L High <38 [facility] Phosphoruson 08-01-2024 Phosphate [Mass/Vol] 2.8 mg/dL Normal 2.7-4.5 [facility] Comment on above: Order Comment: Comme nts: May add to ED labsComments: may add to ED labs Performed By: #### L 501.5200, L501.2300 ####[facility] [address] [place], [address] Platelet countOrdered By: Sudeep Macdonald on 08-01-2024 Platelets (Bld) [#/Vol] 189 10*3/uL Normal 150-450 [facility] Comment on above: Performed By: #### L 100.0100, L503.7505, L500.4050, L501.2450, L300.8000 ####[facility] [address] [place], [address] Potassium measurement (mass/ volume)Ordered By: Tierney Macdonald on 08-01-2024 Potassium (Unsp spec) [Mass/Vol] 3.8 mmol/L 3.3-5.1 [facility] Serum creatinine measurement (mass/volume)Ordered By: Tierney Macdonald on 08-01-2024 Creatinine [Mass/Vol] 1.17 mg/dL 0.70-1.20 [facility] Serum globulin measurementOr dered By: Tierney Macdonald on 08-01-2024 Globulin (S) [Mass/Vol] 3.3 g/dL 2.2-4.2 [facility] Serum glucose measurement (m ass/volume)Ordered By: Tierney Macdonald on 08-01-2024 Glucose [Mass/Vol] 159 mg/dL High 70-99 [facility] Serum or plasma alanine padilla otransferase (ALT) measurementOrdered By: Tierney Macdonald on 08-01-2024 ALT [Catalytic activity/Vol] 20 U/L <47 [facility] Serum or plasma albumin luciana urement (mass/volume)Ordered By: Tierney Macdonald on 08-01-2024 Albumin [Mass/Vol] 3.0 g/dL Low 3.4-4.8 [facility] Serum or plasma albumin/glob ulin mass ratioOrdered By: Tierney Macdonald on 08-01-2024 Albumin/Globulin [Mass ratio] 0.9 {ratio} 0.9-2.4 [facility] Serum or plasma alkaline nolan sphatase measurementOrdered By: Tierney Macdonald on 08-01-2024 ALP [Catalytic activity/Vol] 121 U/L 40-129 [facility] Serum or plasma calcium luciana urement (mass/volume)Ordered By: Tierney Macdonald on 08-01-2024 Calcium [Mass/Vol] 8.4 mg/dL 7.6-11.0 [facility] Serum or plasma urea nitroge n measurement (mass/volume)Ordered By: Tierney Macdonald on 08-01-2024 Urea nitrogen [Mass/Vol] 9 mg/dL 4- [facility] Sodium levelOrdered By: Alanis Macdonald on 08-01-2024 Sodium [Moles/Vol] 137 mmol/L 133-145 [facility] Total proteinOrdered By: Adrianna Macdonald on 08-01-2024 Protein [Mass/Vol] 6.3 g/dL 5.9-8.4 [facility] Troponin T.cardiac [Mass/vol ume] in Serum or Plasma by High sensitivity methodOrdered By: Iman Aguayo on 08-01-2024 Troponin T.cardiac High sensitivity method [Mass/Vol] 96 ng/L High <22 [facility] White blood cell (WBC) count Ordered By: Tierney Macdonald on 08-01-2024 WBC (Bld) [#/Vol] 5.4 10*3/uL Normal 4.4-11.0 [facility] Comment on above: Performed By: #### L 100.0100, L503.7505, L500.4050, L501.2450, L300.8000 ####[facility] [address] [place], [address] Basic Metabolic Profile (BMP )on 07-15-2024 BUN Normal - [facility] Comment on above: Result Comment: Canc elled via OM: Order cancelled - Patient discharged Performed By: #### L 100.0100, L500.2500 ####[facility] [address] [place], [address] BUN/CRE Normal 10-20 [facility] Comment on above: Result Comment: Canc elled via OM: Order cancelled - Patient discharged Performed By: #### L 100.0100, L500.2500 ####[facility] [address] [place], [address] Calcium Normal 7.6-11.0 [facility] Comment on above: Result Comment: Canc elled via OM: Order cancelled - Patient discharged Performed By: #### L 100.0100, L500.2500 ####[facility] [address] [place], [address] CL Normal 98-108 [facility] Comment on above: Result Comment: Canc elled via OM: Order cancelled - Patient discharged Performed By: #### L 100.0100, L500.2500 ####[facility] [address] [place], [address] CO2 Normal 21.0-32.0 [facility] Comment on above: Result Comment: Canc elled via OM: Order cancelled - Patient discharged Performed By: #### L 100.0100, L500.2500 ####[facility] [address] [place], [address] CREAT,SERUM Normal 0.70-1.20 [facility] Comment on above: Result Comment: Canc elled via OM: Order cancelled - Patient discharged Performed By: #### L 100.0100, L500.2500 ####[facility] [address] [place], [address] eGFR Normal >60 [facility] Comment on above: Result Comment: Canc elled via OM: Order cancelled - Patient discharged Performed By: #### L 100.0100, L500.2500 ####[facility] [address] [place], [address] GAP Normal 5-15 [facility] Comment on above: Result Comment: Canc elled via OM: Order cancelled - Patient discharged Performed By: #### L 100.0100, L500.2500 ####[facility] [address] [place], [address] GLU Normal 70-99 [facility] Comment on above: Result Comment: Canc elled via OM: Order cancelled - Patient discharged Performed By: #### L 100.0100, L500.2500 ####[facility] [address] [place], [address] Potassium Normal 3.3-5.1 [facility] Comment on above: Result Comment: Canc elled via OM: Order cancelled - Patient discharged Performed By: #### L 100.0100, L500.2500 ####[facility] [address] [place], [address] Basic Metabolic Profile (BMP) Normal 133-145 [facility] Comment on above: Result Comment: Canc elled via OM: Order cancelled - Patient discharged Performed By: #### L 100.0100, L500.2500 ####[facility] [address] [place], [address] CBC W/Diff, Automatedon 06-0 Absolute Neut Normal 2.0-7.7 [facility] Comment on above: Result Comment: Canc elled via OM: Order cancelled - Patient discharged Performed By: #### L 100.0100, L500.2500 ####[facility] [address] [place], [address] HCT Normal 40-54 [facility] Comment on above: Result Comment: Canc elled via OM: Order cancelled - Patient discharged Performed By: #### L 100.0100, L500.2500 ####[facility] [address] [place], [address] HGB Normal 13.0-16.5 [facility] Comment on above: Result Comment: Canc elled via OM: Order cancelled - Patient discharged Performed By: #### L 100.0100, L500.2500 ####[facility] [address] [place], [address] MCH Normal 27.0-32.0 [facility] Comment on above: Result Comment: Canc elled via OM: Order cancelled - Patient discharged Performed By: #### L 100.0100, L500.2500 ####[facility] [address] [place], [address] MCHC Normal 32-36 [facility] Comment on above: Result Comment: Canc elled via OM: Order cancelled - Patient discharged Performed By: #### L 100.0100, L500.2500 ####[facility] [address] [place], [address] MCV Normal 80-94 [facility] Comment on above: Result Comment: Canc elled via OM: Order cancelled - Patient discharged Performed By: #### L 100.0100, L500.2500 ####[facility] [address] [place], [address] NEUT% Normal 47-70 [facility] Comment on above: Result Comment: Canc elled via OM: Order cancelled - Patient discharged Performed By: #### L 100.0100, L500.2500 ####[facility] [address] [place], [address] PLT Normal 150-450 [facility] Comment on above: Result Comment: Canc elled via OM: Order cancelled - Patient discharged Performed By: #### L 100.0100, L500.2500 ####[facility] [address] [place], [address] RBC Normal 4.6-6.2 [facility] Comment on above: Result Comment: Canc elled via OM: Order cancelled - Patient discharged Performed By: #### L 100.0100, L500.2500 ####[facility] [address] [place], [address] RDW CV Normal 11.6-14.6 [facility] Comment on above: Result Comment: Canc elled via OM: Order cancelled - Patient discharged Performed By: #### L 100.0100, L500.2500 ####[facility] [address] [place], [address] RDW SD Normal 35.1-43.9 [facility] Comment on above: Result Comment: Canc elled via OM: Order cancelled - Patient discharged Performed By: #### L 100.0100, L500.2500 ####[facility] [address] [place], [address] WBC Normal 4.4-11.0 [facility] Comment on above: Result Comment: Canc elled via OM: Order cancelled - Patient discharged Performed By: #### L 100.0100, L500.2500 ####[facility] [address] [place], [address] Basic Metabolic Profile (BMP )on 07-14-2024 BUN Normal 4-19 [facility] Comment on above: Order Comment: PT RE FUSED CHARGE NURSE GEETHA NOTIFIED Result Comment: CHARLEY ENT DISCHARGED Performed By: #### L 500.2500, L100.0100 ####[facility] [address] [place], [address] BUN/CRE Normal 10-20 [facility] Comment on above: Order Comment: PT RE FUSED CHARGE NURSE GEETHA NOTIFIED Result Comment: CHARLEY ENT DISCHARGED Performed By: #### L 500.2500, L100.0100 ####[facility] [address] [place], [address] Calcium Normal 7.6-11.0 [facility] Comment on above: Order Comment: PT RE FUSED CHARGE NURSE GEETHA NOTIFIED Result Comment: CHARLEY ENT DISCHARGED Performed By: #### L 500.2500, L100.0100 ####[facility] [address] [place], [address] CL Normal 98-108 [facility] Comment on above: Order Comment: PT RE FUSED CHARGE NURSE GEETHA NOTIFIED Result Comment: CHARLEY ENT DISCHARGED Performed By: #### L 500.2500, L100.0100 ####[facility] [address] [place], [address] CO2 Normal 21.0-32.0 [facility] Comment on above: Order Comment: PT RE FUSED CHARGE NURSE GEETHA NOTIFIED Result Comment: CHARLEY ENT DISCHARGED Performed By: #### L 500.2500, L100.0100 ####[facility] [address] [place], [address] CREAT,SERUM Normal 0.70-1.20 [facility] Comment on above: Order Comment: PT RE FUSED CHARGE NURSE GEETHA NOTIFIED Result Comment: CHARLEY ENT DISCHARGED Performed By: #### L 500.2500, L100.0100 ####[facility] [address] [place], [address] eGFR Normal >60 [facility] Comment on above: Order Comment: PT RE FUSED CHARGE NURSE GEETHA NOTIFIED Result Comment: CHARLEY ENT DISCHARGED Performed By: #### L 500.2500, L100.0100 ####[facility] [address] [place], [address] GAP Normal 5-15 [facility] Comment on above: Order Comment: PT RE FUSED CHARGE NURSE GEETHA NOTIFIED Result Comment: CHARLEY ENT DISCHARGED Performed By: #### L 500.2500, L100.0100 ####[facility] [address] [place], [address] GLU Normal 70-99 [facility] Comment on above: Order Comment: PT RE FUSED CHARGE NURSE GEETHA NOTIFIED Result Comment: CHARLEY ENT DISCHARGED Performed By: #### L 500.2500, L100.0100 ####[facility] [address] [place], [address] Potassium Normal 3.3-5.1 [facility] Comment on above: Order Comment: PT RE FUSED CHARGE NURSE GEETHA NOTIFIED Result Comment: CHARLEY ENT DISCHARGED Performed By: #### L 500.2500, L100.0100 ####[facility] [address] [place], [address] Basic Metabolic Profile (BMP) Normal 133-145 [facility] Comment on above: Order Comment: PT RE FUSED CHARGE NURSE GEETHA NOTIFIED Result Comment: CHARLEY ENT DISCHARGED Performed By: #### L 500.2500, L100.0100 ####[facility] [address] [place], [address] Bedside Glucoseon --2024 FINGERSTICK GLU 235 mg/dL High 74-106 [facility] Comment on above: Result Comment: DAYANARA GEMENT OF PATIENT CARE PER NURSING PROTOCOL Performed By: #### L 501.080 ####[facility] [address] [place], [address] FINGERSTICK GLU 253 mg/dL High 74-106 [facility] Comment on above: Result Comment: DAYANARA GEMENT OF PATIENT CARE PER NURSING PROTOCOL Performed By: #### L 501.080 ####[facility] [address] [place], [address] FINGERSTICK GLU 205 mg/dL High 74-106 [facility] Comment on above: Result Comment: DAYANARA GEMENT OF PATIENT CARE PER NURSING PROTOCOL Performed By: #### L 501.080 ####[facility] [address] [place], [address] CBC W/Diff, Automatedon 06-0 -2024 Absolute Neut Normal 2.0-7.7 [facility] Comment on above: Order Comment: PT RE FUSED CHARGE NURSE GEETHA NOTIFIED Result Comment: CHARLEY ENT DISCHARGED Performed By: #### L 500.2500, L100.0100 ####[facility] [address] [place], [address] HCT Normal 40-54 [facility] Comment on above: Order Comment: PT RE FUSED CHARGE NURSE GEETHA NOTIFIED Result Comment: CHARLEY ENT DISCHARGED Performed By: #### L 500.2500, L100.0100 ####[facility] [address] [place], [address] HGB Normal 13.0-16.5 [facility] Comment on above: Order Comment: PT RE FUSED CHARGE NURSE GEETHA NOTIFIED Result Comment: CHARLEY ENT DISCHARGED Performed By: #### L 500.2500, L100.0100 ####[facility] [address] [place], [address] MCH Normal 27.0-32.0 [facility] Comment on above: Order Comment: PT RE FUSED CHARGE NURSE GEETHA NOTIFIED Result Comment: CHARLEY ENT DISCHARGED Performed By: #### L 500.2500, L100.0100 ####[facility] [address] [place], [address] MCHC Normal 32-36 [facility] Comment on above: Order Comment: PT RE FUSED CHARGE NURSE GEETHA NOTIFIED Result Comment: HCARLEY ENT DISCHARGED Performed By: #### L 500.2500, L100.0100 ####[facility] [address] [place], [address] MCV Normal 80-94 [facility] Comment on above: Order Comment: PT RE FUSED CHARGE NURSE GEETHA NOTIFIED Result Comment: CHARLEY ENT DISCHARGED Performed By: #### L 500.2500, L100.0100 ####[facility] [address] [place], [address] NEUT% Normal 47-70 [facility] Comment on above: Order Comment: PT RE FUSED CHARGE NURSE GEETHA NOTIFIED Result Comment: CHARLEY ENT DISCHARGED Performed By: #### L 500.2500, L100.0100 ####[facility] [address] [place], [address] PLT Normal 150-450 [facility] Comment on above: Order Comment: PT RE FUSED CHARGE NURSE GEETHA NOTIFIED Result Comment: CHARLEY ENT DISCHARGED Performed By: #### L 500.2500, L100.0100 ####[facility] [address] [place], [address] RBC Normal 4.6-6.2 [facility] Comment on above: Order Comment: PT RE FUSED CHARGE NURSE GEETHA NOTIFIED Result Comment: CHARLEY ENT DISCHARGED Performed By: #### L 500.2500, L100.0100 ####[facility] [address] [place], [address] RDW CV Normal 11.6-14.6 [facility] Comment on above: Order Comment: PT RE FUSED CHARGE NURSE GEETHA NOTIFIED Result Comment: CHARLEY ENT DISCHARGED Performed By: #### L 500.2500, L100.0100 ####[facility] [address] [place], [address] RDW SD Normal 35.1-43.9 [facility] Comment on above: Order Comment: PT RE FUSED CHARGE NURSE GEETHA NOTIFIED Result Comment: CHARLEY ENT DISCHARGED Performed By: #### L 500.2500, L100.0100 ####[facility] [address] [place], [address] WBC Normal 4.4-11.0 [facility] Comment on above: Order Comment: PT RE FUSED CHARGE NURSE GEETHA NOTIFIED Result Comment: CHARLEY ENT DISCHARGED Performed By: #### L 500.2500, L100.0100 ####[facility] [address] [place], [address] Gl[facility] deOrdered By: Conrado Morel on 07-14-2024 Glucose [Mass/Vol] 235 mg/dL High 74-106 [facility] Absolute lymphocyte countOrd ered By: Conrado Morel on 07-13-2024 Lymphocytes Auto (Unsp spec) [#/Vol] 1.06 10*3/uL 0.83-4.51 [facility] Anion gap in Serum or Plasma Ordered By: Conrado Morel on 07-13-2024 Anion gap [Moles/Vol] 11 mmol/L 5-15 [facility] Automated lymphocyte count a s percentage of total leukocytesOrdered By: Conrado Morel on 07-13-2024 Lymphocytes/100 WBC Auto (Unsp spec) 16.6 % Low 19-41 [facility] BUN/creatinine ratioOrdered By: Conrado Morel on 07-13-2024 Urea nitrogen/Creatinine [Mass ratio] 6.7 mg/mg Low 10-20 [facility] Basic Metabolic Profile (BMP )on 07-13-2024 BUN/CRE 6.7 RATIO Low 10-20 [facility] Comment on above: Performed By: #### L 501.2300, L501.5200, L100.0100, L500.2500 ####[facility] [address] [place], [address] Calcium [Mass/Vol] 8.3 mg/dL Normal 7.6-11.0 [facility] Comment on above: Performed By: #### L 501.2300, L501.5200, L100.0100, L500.2500 ####[facility] [address] [place], [address] Chloride [Moles/Vol] 107 mmol/L Normal 98-108 [facility] Comment on above: Performed By: #### L 501.2300, L501.5200, L100.0100, L500.2500 ####[facility] [address] [place], [address] CO2 [Moles/Vol] 21.2 mmol/L Normal 21.0-32.0 [facility] Comment on above: Performed By: #### L 501.2300, L501.5200, L100.0100, L500.2500 ####[facility] [address] [place], [address] Creatinine [Mass/Vol] 1.19 mg/dL Normal 0.70-1.20 [facility] Comment on above: Performed By: #### L 501.2300, L501.5200, L100.0100, L500.2500 ####[facility] [address] [place], [address] ECRCL 63.90 ml/min Normal 50-250 [facility] Comment on above: Performed By: #### L 501.2300, L501.5200, L100.0100, L500.2500 ####[facility] [address] [place], [address] GAP 11 Normal 5-15 [facility] Comment on above: Performed By: #### L 501.2300, L501.5200, L100.0100, L500.2500 ####[facility] [address] [place], [address] GFR/1.73 sq M.predicted among non-blacks MDRD (S/P/Bld) [Vol rate/Area] 69 mL/min/{1.73_m2} Normal >60 [facility] Comment on above: Result Comment: mL/m in/1.73m2 CKD-EPI Creatinine Equation (2020) Performed By: #### L 501.2300, L501.5200, L100.0100, L500.2500 ####[facility] [address] [place], [address] Glucose [Mass/Vol] 96 mg/dL Normal 70-99 [facility] Comment on above: Performed By: #### L 501.2300, L501.5200, L100.0100, L500.2500 ####[facility] [address] [place], [address] Potassium [Moles/Vol] 4.4 mmol/L Normal 3.3-5.1 [facility] Comment on above: Performed By: #### L 501.2300, L501.5200, L100.0100, L500.2500 ####[facility] [address] [place], [address] Sodium [Moles/Vol] 139 mmol/L Normal 133-145 [facility] Comment on above: Performed By: #### L 501.2300, L501.5200, L100.0100, L500.2500 ####[facility] [address] [place], [address] Urea nitrogen [Mass/Vol] 8 mg/dL Normal 4-19 [facility] Comment on above: Performed By: #### L 501.2300, L501.5200, L100.0100, L500.2500 ####[facility] [address] [place], [address] Basophil percentageOrdered B y: Conrado Morel on 07-13-2024 Basophils/100 WBC (Bld) 0.9 % 0-[address] [facility] Bedside Glucoseon 07-13-2024 FINGERSTICK GLU 190 mg/dL High 74-106 [facility] Comment on above: Result Comment: DAYANARA GEMENT OF PATIENT CARE PER NURSING PROTOCOL Performed By: #### L 501.080 ####[facility] [address] [place], [address] FINGERSTICK GLU 270 mg/dL High 74-106 [facility] Comment on above: Result Comment: DAYANARA GEMENT OF PATIENT CARE PER NURSING PROTOCOL Performed By: #### L 501.080 ####[facility] [address] [place], [address] FINGERSTICK GLU 101 mg/dL Normal 74-106 [facility] Comment on above: Result Comment: DAYANARA GEMENT OF PATIENT CARE PER NURSING PROTOCOL Performed By: #### L 501.080 ####[facility] [address] [place], [address] CBC W/Diff, Automatedon 0 Absolute Lymph 1.06 X10 3/uL Normal 0.83-4.51 [facility] Comment on above: Performed By: #### L 501.2300, L501.5200, L100.0100, L500.2500 ####[facility] [address] [place], [address] Absolute Neut 4.8 X10 3/uL Normal 2.0-7.7 [facility] Comment on above: Performed By: #### L 501.2300, L501.5200, L100.0100, L500.2500 ####[facility] [address] [place], [address] Basophils/100 WBC (Bld) 0.9 % Normal 0-[address] [facility] Comment on above: Performed By: #### L 501.2300, L501.5200, L100.0100, L500.2500 ####[facility] [address] [place], [address] Eosinophils/100 WBC (Bld) 1.4 % Normal 0-5 [facility] Comment on above: Performed By: #### L 501.2300, L501.5200, L100.0100, L500.2500 ####[facility] [address] [place], [address] Erythrocyte distribution width (RBC) [Ratio] 15.6 % High 11.6-14.6 [facility] Comment on above: Performed By: #### L 501.2300, L501.5200, L100.0100, L500.2500 ####[facility] [address] [place], [address] Hematocrit (Bld) [Volume fraction] 26.5 % Low 40-54 [facility] Comment on above: Performed By: #### L 501.2300, L501.5200, L100.0100, L500.2500 ####[facility] [address] [place], [address] Hemoglobin (Bld) [Mass/Vol] 8.5 g/dL Low 13.0-16.5 [facility] Comment on above: Performed By: #### L 501.2300, L501.5200, L100.0100, L500.2500 ####[facility] [address] [place], [address] IG% 0.300 Normal 0.0-0.9 [facility] Comment on above: Result Comment: IG% - Immature Granulocytes (promyelocytes, myelocytes andmetamyelocytes) > 1% indicates that a LEFT SHIFT is Present. Performed By: #### L 501.2300, L501.5200, L100.0100, L500.2500 ####[facility] [address] [place], [address] Lymphocytes/100 WBC (Bld) 16.6 % Low 19-41 [facility] Comment on above: Performed By: #### L 501.2300, L501.5200, L100.0100, L500.2500 ####[facility] [address] [place], [address] MCH (RBC) [Entitic mass] 35.9 pg High 27.0-32.0 [facility] Comment on above: Performed By: #### L 501.2300, L501.5200, L100.0100, L500.2500 ####[facility] [address] [place], [address] MCHC (RBC) [Mass/Vol] 32.1 g/dL Normal 32-36 [facility] Comment on above: Performed By: #### L 501.2300, L501.5200, L100.0100, L500.2500 ####[facility] [address] [place], [address] MCV (RBC) [Entitic vol] 111.8 fL High 80-[address] [facility] Comment on above: Performed By: #### L 501.2300, L501.5200, L100.0100, L500.2500 ####[facility] [facility] [address] [place], [address] Monocytes/100 WBC (Bld) 6.6 % Normal 0-[address] [facility] Comment on above: Performed By: #### L 501.2300, L501.5200, L100.0100, L500.2500 ####[facility] [address] [place], [address] Neutrophils/100 WBC (Bld) 74.2 % High 47-70 [facility] Comment on above: Performed By: #### L 501.2300, L501.5200, L100.0100, L500.2500 ####[facility] [address] [place], [address] Nucleated RBC (Bld) [#/Vol] 0 10*3/uL Normal 0-5 [facility] Comment on above: Performed By: #### L 501.2300, L501.5200, L100.0100, L500.2500 ####[facility] [address] [place], [address] Platelet mean volume (Bld) [Entitic vol] 11.0 fL Normal 6.2-12.0 [facility] Comment on above: Performed By: #### L 501.2300, L501.5200, L100.0100, L500.2500 ####[facility] [address] [place], [address] Platelets (Bld) [#/Vol] 165 10*3/uL Normal 150-450 [facility] Comment on above: Performed By: #### L 501.2300, L501.5200, L100.0100, L500.2500 ####[facility] [address] [place], [address] RBC (Bld) [#/Vol] 2.37 10*6/uL Low 4.6-6.2 [facility] Comment on above: Performed By: #### L 501.2300, L501.5200, L100.0100, L500.2500 ####[facility] [address] [place], [address] RDW SD 63.7 fl High 35.1-43.9 [facility] Comment on above: Performed By: #### L 501.2300, L501.5200, L100.0100, L500.2500 ####[facility] [address] [place], [address] WBC (Bld) [#/Vol] 6.4 10*3/uL Normal 4.4-11.0 [facility] Comment on above: Performed By: #### L 501.2300, L501.5200, L100.0100, L500.2500 ####[facility] [address] [place], [address] Carbon dioxide, total [Moles /volume] in Central venous bloodOrdered By: Conrado Morel on 07-13-2024 CO2 [Moles/Vol] 21.2 mmol/L 21.0-32.0 [facility] Chloride assayOrdered By: Lauri Morel on 07-13-2024 Chloride [Moles/Vol] 107 mmol/L 98-108 [facility] Eosinophil percentageOrdered By: Conrado Morel on 07-13-2024 Eosinophils/100 WBC (Bld) 1.4 % 0-5 [facility] Erythrocyte distribution wid th ratioOrdered By: Conrado Morel on 07-13-2024 Erythrocyte distribution width (RBC) [Ratio] 15.6 % High 11.6-14.6 [facility] Erythrocyte distribution wid th standard deviationOrdered By: Conrado Morel on 07-13-2024 Erythrocyte distribution width (RBC) [Ratio] 63.7 fl High 35.1-43.9 [facility] Glomerular filtration rate ( GFR) estimation/1.73 sq m using serum, plasma, or whole bOrdered By: Conrado Morel on 07-13-2024 GFR/1.73 sq M.predicted among non-blacks MDRD (S/P/Bld) [Vol rate/Area] 69 mL/min/{1.73_m2} >60 [facility] Hematocrit Auto (Bld) [Volum e fraction]Ordered By: Conrado Morel on 07-13-2024 Hematocrit (Bld) [Volume fraction] 26.5 % Low 40-54 [facility] Hemoglobin measurementOrdere d By: Conrado Morel on 07-13-2024 Hemoglobin (Bld) [Mass/Vol] 8.5 g/dL Low 13.0-16.5 [facility] Immature granulocytes/100 WB C Auto (Bld)Ordered By: Conrado Morel on 07-13-2024 Immature granulocytes/100 WBC (Bld) 0.300 % 0.0-0.9 [facility] MCV (mean corpuscular volume ) determinationOrdered By: Conrado Morel on 07-13-2024 MCV (RBC) [Entitic vol] 111.8 fL High 80-[address] [facility] Magnesiumon 07-13-2024 Magnesium [Mass/Vol] 2.0 mg/dL Normal 1.5-2.2 [facility] Comment on above: Performed By: #### L 501.2300, L501.5200, L100.0100, L500.2500 ####[facility] [address] [place], [address] Magnesium measurement (mass/ volume)Ordered By: Conrado Morel on 07-13-2024 Magnesium (Unsp spec) [Mass/Vol] 2.0 mg/dL 1.5-2.2 [facility] Mean corpuscular hemoglobin (MCH) determinationOrdered By: Conrado Morel on 07-13-2024 MCH (RBC) [Entitic mass] 35.9 pg High 27.0-32.0 [facility] Monocyte percentageOrdered B y: Conrado Morel on 07-13-2024 Monocytes/100 WBC (Bld) 6.6 % 0-[address] [facility] Neutrophil percentageOrdered By: Conrado Morel on 07-13-2024 Neutrophils/100 WBC (Bld) 74.2 % High 47-70 [facility] Phosphoruson 07-13-2024 Phosphate [Mass/Vol] 3.1 mg/dL Normal 2.7-4.5 [facility] Comment on above: Performed By: #### L 501.2300, L501.5200, L100.0100, L500.2500 ####[facility] [address] [place], [address] Platelet countOrdered By: Lauri Morel on 07-13-2024 Platelets (Bld) [#/Vol] 165 10*3/uL 150-450 [facility] Potassium measurement (mass/ volume)Ordered By: Conrado Morel on 07-13-2024 Potassium (Unsp spec) [Mass/Vol] 4.4 mmol/L 3.3-5.1 [facility] RBC Auto (Bld) [#/Vol]Ordere d By: Conrado Morel on 07-13-2024 RBC (Bld) [#/Vol] 2.37 10*6/uL Low 4.6-6.2 [facility] Serum creatinine measurement (mass/volume)Ordered By: Conrado Morel on 07-13-2024 Creatinine [Mass/Vol] 1.19 mg/dL 0.70-1.20 [facility] Serum glucose measurement (m ass/volume)Ordered By: Conrado Morel on 07-13-2024 Glucose [Mass/Vol] 96 mg/dL 70-99 [facility] Serum or plasma calcium luciana urement (mass/volume)Ordered By: Conrado Morel on 07-13-2024 Calcium [Mass/Vol] 8.3 mg/dL 7.6-11.0 [facility] Serum or plasma urea nitroge n measurement (mass/volume)Ordered By: Conrado Morel on 07-13-2024 Urea nitrogen [Mass/Vol] 8 mg/dL 4-19 [facility] Sodium levelOrdered By: Lawrence Morel on 07-13-2024 Sodium [Moles/Vol] 139 mmol/L 133-145 [facility] White blood cell (WBC) count Ordered By: Conrado Morel on 07-13-2024 WBC (Bld) [#/Vol] 6.4 10*3/uL 4.4-11.0 [facility] [employer] Decub and/or Erecton 07-12-2024 [employer] Inc Decub and/or Erect Normal [facility] Bedside Glucoseon 07-12-2024 FINGERSTICK GLU 98 mg/dL Normal 74-106 [facility] Comment on above: Result Comment: DAYANARA GEMENT OF PATIENT CARE PER NURSING PROTOCOL Performed By: #### L 501.080 ####[facility] [address] [place], [address] FINGERSTICK GLU 99 mg/dL Normal -106 [facility] Comment on above: Result Comment: DAYANARA GEMENT OF PATIENT CARE PER NURSING PROTOCOL Performed By: #### L 501.080 ####[facility] [address] [place], [address] FINGERSTICK GLU 236 mg/dL High -106 [facility] Comment on above: Result Comment: DAYANARA GEMENT OF PATIENT CARE PER NURSING PROTOCOL Performed By: #### L 501.080 ####[facility] [address] [place], [address] FINGERSTICK GLU 94 mg/dL Normal -[address] [place] [address] Comment on above: Result Comment: DAYANARA GEMENT OF PATIENT CARE PER NURSING PROTOCOL Performed By: #### L 501.080 ####[facility] [address] [place], [address] Bilirubin, totalOrdered By: Melonie De La Rosa on 07-12-2024 Bilirubin [Mass/Vol] 0.36 mg/dL 0.00-1.30 [facility] Body Fluid Cell Count+Diffon 07-12-2024 PATH COMM/BF Reviewed Normal [facility] Comment on above: Result Comment: NO M ALIGNANT CELLS OBSERVED.Fabiola Landaverde MD 07/12/2024 AMENDED REPORT 07/12/24 1412 PATH COMM/BF previously reported as: May follow Performed By: #### L 200.0200 ####[facility] [address] [place], [address] CBC W/Diff, Automatedon 06-0 Anisocytosis Ql (Bld) 1+ Normal [facility] Comment on above: Performed By: #### L 100.0100, L501.2300, L501.5200, L500.4050 ####[facility] [address] [place], [address] Comprehensive Metabolic Prof ilon 07-12-2024 Albumin [Mass/Vol] 2.5 g/dL Low 3.4-4.8 [facility] Comment on above: Performed By: #### L 100.0100, L501.2300, L501.5200, L500.4050 ####[facility] [address] [place], [address] Albumin/Globulin [Mass ratio] 0.9 {ratio} Normal 0.9-2.4 [facility] Comment on above: Performed By: #### L 100.0100, L501.2300, L501.5200, L500.4050 ####[facility] [address] [place], [address] ALK PHOS 90 U/L Normal 40-129 [facility] Comment on above: Performed By: #### L 100.0100, L501.2300, L501.5200, L500.4050 ####[facility] [address] [place], [address] ALT [Catalytic activity/Vol] 20 U/L Normal <=46 [facility] Comment on above: Performed By: #### L 100.0100, L501.2300, L501.5200, L500.4050 ####[facility] [address] [place], [address] AST [Catalytic activity/Vol] 51 U/L High <=37 [facility] Comment on above: Performed By: #### L 100.0100, L501.2300, L501.5200, L500.4050 ####[facility] [address] [place], [address] Bilirubin [Mass/Vol] 0.36 mg/dL Normal 0.00-1.30 [facility] Comment on above: Performed By: #### L 100.0100, L501.2300, L501.5200, L500.4050 ####[facility] [address] [place], [address] BUN/CRE 8.3 RATIO Low 10-20 [facility] Comment on above: Performed By: #### L 100.0100, L501.2300, L501.5200, L500.4050 ####[facility] [address] [place], [address] Calcium [Mass/Vol] 8.1 mg/dL Normal 7.6-11.0 [facility] Comment on above: Performed By: #### L 100.0100, L501.2300, L501.5200, L500.4050 ####[facility] [address] [place], [address] Chloride [Moles/Vol] 108 mmol/L Normal 98-108 [facility] Comment on above: Performed By: #### L 100.0100, L501.2300, L501.5200, L500.4050 ####[facility] [address] [place], [address] CO2 [Moles/Vol] 22.8 mmol/L Normal 21.0-32.0 [facility] Comment on above: Performed By: #### L 100.0100, L501.2300, L501.5200, L500.4050 ####[facility] [address] [place], [address] Creatinine [Mass/Vol] 1.12 mg/dL Normal 0.70-1.20 [facility] Comment on above: Performed By: #### L 100.0100, L501.2300, L501.5200, L500.4050 ####[facility] [address] [place], [address] ECRCL 63.78 ml/min Normal 50-250 [facility] Comment on above: Performed By: #### L 100.0100, L501.2300, L501.5200, L500.4050 ####[facility] [address] [place], [address] GAP 7 Normal 5-15 [facility] Comment on above: Performed By: #### L 100.0100, L501.2300, L501.5200, L500.4050 ####[facility] [address] [place], [address] GFR/1.73 sq M.predicted among non-blacks MDRD (S/P/Bld) [Vol rate/Area] 75 mL/min/{1.73_m2} Normal >60 [facility] Comment on above: Result Comment: mL/m in/1.73m2 CKD-EPI Creatinine Equation (2020) Performed By: #### L 100.0100, L501.2300, L501.5200, L500.4050 ####[facility] [address] [place], [address] Globulin (S) [Mass/Vol] 2.6 g/dL Normal 2.2-4.[address] [facility] Comment on above: Performed By: #### L 100.0100, L501.2300, L501.5200, L500.4050 ####[facility] [address] [place], [address] Glucose [Mass/Vol] 93 mg/dL Normal 70-99 [facility] Comment on above: Performed By: #### L 100.0100, L501.2300, L501.5200, L500.4050 ####[facility] [address] [place], [address] Potassium [Moles/Vol] 4.2 mmol/L Normal 3.3-5.1 [facility] Comment on above: Performed By: #### L 100.0100, L501.2300, L501.5200, L500.4050 ####[facility] [address] [place], [address] Sodium [Moles/Vol] 138 mmol/L Normal 133-145 [facility] Comment on above: Performed By: #### L 100.0100, L501.2300, L501.5200, L500.4050 ####[facility] [address] [place], [address] T PROT 5.1 g/dL Low 5.9-8.4 [facility] Comment on above: Performed By: #### L 100.0100, L501.2300, L501.5200, L500.4050 ####[facility] [address] [place], [address] Urea nitrogen [Mass/Vol] 9 mg/dL Normal 4-19 [facility] Comment on above: Performed By: #### L 100.0100, L501.2300, L501.5200, L500.4050 ####[facility] [address] [place], [address] Consultation - Surgicalon Consultation - Surgical Normal [facility] Magnesiumon 07-12-2024 Magnesium [Mass/Vol] 2.0 mg/dL Normal 1.5-2.2 [facility] Comment on above: Performed By: #### L 100.0100, L501.2300, L501.5200, L500.4050 ####[facility] [address] [place], [address] No Panel InformationOrdered By: Melonie De La Rosa on 07-12-2024 1+ [facility] 51 U/L High <38 [facility] Phosphoruson 07-12-2024 Phosphate [Mass/Vol] 3.0 mg/dL Normal 2.7-4.5 [facility] Comment on above: Performed By: #### L 100.0100, L501.2300, L501.5200, L500.4050 ####[facility] [address] [place], [address] Serum globulin measurementOr dered By: Melonie De La Rosa on 07-12-2024 Globulin (S) [Mass/Vol] 2.6 g/dL 2.2-4.2 [facility] Serum or plasma alanine padilla otransferase (ALT) measurementOrdered By: Melonie De La Rosa on 07-12-2024 ALT [Catalytic activity/Vol] 20 U/L <47 [facility] Serum or plasma albumin luciana urement (mass/volume)Ordered By: Melonie De La Rosa on 07-12-2024 Albumin [Mass/Vol] 2.5 g/dL Low 3.4-4.8 [facility] Serum or plasma albumin/glob ulin mass ratioOrdered By: Melonie De La Rosa on 07-12-2024 Albumin/Globulin [Mass ratio] 0.9 {ratio} 0.9-2.4 [facility] Serum or plasma alkaline nolan sphatase measurementOrdered By: Melonie De La Rosa on 07-12-2024 ALP [Catalytic activity/Vol] 90 U/L 40-129 [facility] Small Bowel Series Onlyon Small Bowel Series Only Normal [facility] Total proteinOrdered By: Shira De La Rosa on 07-12-2024 Protein [Mass/Vol] 5.1 g/dL Low 5.9-8.4 [facility] Abdomen/Pelvis W IV Cont ONL Yon 07-11-2024 Abdomen/Pelvis W IV Cont ONLY Normal [facility] Absolute lymphocyte countOrd ered By: Perez Ribeiro on 07-11-2024 Lymphocytes Auto (Unsp spec) [#/Vol] 0.86 10*3/uL 0.83-4.51 [facility] Alcohol, Blood (Medical)-Ser umon 07-11-2024 SERUM ETOH < 10.1 Normal <=10.0 [facility] Comment on above: Result Comment: This test is for medical purposes only. The legaldefinition of intoxication varies according to local law. Performed By: #### L 500.2500, L500.3400, L505.5000, L100.0100, L501.9100, L501.2450 ####[facility] [address] [place], [place], [id number] Amphetamine detection with 1 000 ng/mL as cutoffOrdered By: Perez Ribeiro on 07-11-2024 Amphetamines Screen method >1000 ng/mL Ql (U) Negative <1000 ng/mL [facility] Amphetamines Screen method >1000 ng/mL Ql (U) Positive < 200 ng/mL [facility] Anion gap in Serum or Plasma Ordered By: Perez Ribeiro on 07-11-2024 Anion gap [Moles/Vol] 8 mmol/L 5-15 [facility] Automated lymphocyte count a s percentage of total leukocytesOrdered By: Perez Ribeiro on 07-11-2024 Lymphocytes/100 WBC Auto (Unsp spec) 15.4 % Low 19-41 [facility] BUN/creatinine ratioOrdered By: Perez Ribeiro on 07-11-2024 Urea nitrogen/Creatinine [Mass ratio] 8.9 mg/mg Low 10-20 [facility] Basic Metabolic Profile (BMP )on 07-11-2024 BUN/CRE 8.9 RATIO Low 10-20 [facility] Comment on above: Performed By: #### L 500.2500, L500.3400, L505.5000, L100.0100, L501.9100, L501.2450 ####[facility] [address] [place], [address] Calcium [Mass/Vol] 8.3 mg/dL Normal 7.6-11.0 [facility] Comment on above: Performed By: #### L 500.2500, L500.3400, L505.5000, L100.0100, L501.9100, L501.2450 ####[facility] [address] [place], [address] Chloride [Moles/Vol] 103 mmol/L Normal 98-108 [facility] Comment on above: Performed By: #### L 500.2500, L500.3400, L505.5000, L100.0100, L501.9100, L501.2450 ####[facility] [address] [place], [address] CO2 [Moles/Vol] 28.3 mmol/L Normal 21.0-32.0 [facility] Comment on above: Performed By: #### L 500.2500, L500.3400, L505.5000, L100.0100, L501.9100, L501.2450 ####[facility] [address] [place], [address] Creatinine [Mass/Vol] 1.15 mg/dL Normal 0.70-1.20 [facility] Comment on above: Performed By: #### L 500.2500, L500.3400, L505.5000, L100.0100, L501.9100, L501.2450 ####[facility] [address] [place], [address] ECRCL 62.80 ml/min Normal 50-250 [facility] Comment on above: Performed By: #### L 500.2500, L500.3400, L505.5000, L100.0100, L501.9100, L501.2450 ####[facility] [address] [place], [address] GAP 8 Normal 5-15 [facility] Comment on above: Performed By: #### L 500.2500, L500.3400, L505.5000, L100.0100, L501.9100, L501.2450 ####[facility] [address] [place], [address] GFR/1.73 sq M.predicted among non-blacks MDRD (S/P/Bld) [Vol rate/Area] 72 mL/min/{1.73_m2} Normal >60 [facility] Comment on above: Result Comment: mL/m in/1.73m2 CKD-EPI Creatinine Equation (2020) Performed By: #### L 500.2500, L500.3400, L505.5000, L100.0100, L501.9100, L501.2450 ####[facility] [address] [place], [address] Glucose [Mass/Vol] 137 mg/dL High 70-99 [facility] Comment on above: Performed By: #### L 500.2500, L500.3400, L505.5000, L100.0100, L501.9100, L501.2450 ####[facility] [address] [place], [address] Potassium [Moles/Vol] 4.6 mmol/L Normal 3.3-5.1 [facility] Comment on above: Performed By: #### L 500.2500, L500.3400, L505.5000, L100.0100, L501.9100, L501.2450 ####[facility] [address] [place], [address] Sodium [Moles/Vol] 140 mmol/L Normal 133-145 [facility] Comment on above: Performed By: #### L 500.2500, L500.3400, L505.5000, L100.0100, L501.9100, L501.2450 ####[facility] [address] [place], [address] Urea nitrogen [Mass/Vol] 10 mg/dL Normal 4-19 [facility] Comment on above: Performed By: #### L 500.2500, L500.3400, L505.5000, L100.0100, L501.9100, L501.2450 ####[facility] [address] [place], [address] Basophil percentageOrdered B y: Perez Ribeiro on 07-11-2024 Basophils/100 WBC (Bld) 1.1 % High 0-[address] [facility] Bedside Glucoseon 07-11-2024 FINGERSTICK GLU 97 mg/dL Normal 74-106 [facility] Comment on above: Result Comment: DAYANARA GEMENT OF PATIENT CARE PER NURSING PROTOCOL Performed By: #### L 501.080 ####[facility] [address] [place], [address] FINGERSTICK GLU 149 mg/dL High 74-106 [facility] Comment on above: Result Comment: DAYANARA GEMENT OF PATIENT CARE PER NURSING PROTOCOL Performed By: #### L 501.080 ####[facility] [address] [place], [address] Bilirubin Test strip Ql (U)O rdered By: Perez Ribeiro on 07-11-2024 Bilirubin Ql (U) Negative Negative [facility] Bilirubin directOrdered By: Perez Ribeiro on 07-11-2024 Bilirubin.direct [Mass/Vol] 0.21 mg/dL 0.00-0.30 [facility] Bilirubin, totalOrdered By: Perez Ribeiro on 07-11-2024 Bilirubin [Mass/Vol] 0.34 mg/dL 0.00-1.30 [facility] Blood polychromasia detectio n by light microscopyOrdered By: Perez Ribeiro on 07-11-2024 Polychromasia LM Ql (Bld) RARE [facility] CBC W/Diff, Automatedon Anisocytosis Ql (Bld) 1+ Normal [facility] Comment on above: Performed By: #### L 500.2500, L500.3400, L505.5000, L100.0100, L501.9100, L501.2450 ####[facility] [address] [place], [address] PLT EST A Normal ADEQ [facility] Comment on above: Performed By: #### L 500.2500, L500.3400, L505.5000, L100.0100, L501.9100, L501.2450 ####[facility] [address] [place], [address] POLYCHROMASIA RARE Normal [facility] Comment on above: Performed By: #### L 500.2500, L500.3400, L505.5000, L100.0100, L501.9100, L501.2450 ####[facility] [address] [place], [address] Carbon dioxide, total [Moles /volume] in Central venous bloodOrdered By: Perez Ribeiro on 07-11-2024 CO2 [Moles/Vol] 28.3 mmol/L 21.0-32.0 [facility] Chloride assayOrdered By: Prosper Ribeiro on 07-11-2024 Chloride [Moles/Vol] 103 mmol/L 98-108 [facility] Emergency Department Summary on 07-11-2024 Emergency Department Summary Normal [facility] Eosinophil percentageOrdered By: Perez Ribeiro on 07-11-2024 Eosinophils/100 WBC (Bld) 0.4 % 0-5 [facility] Erythrocyte distribution wid th ratioOrdered By: Perez Ribeiro on 07-11-2024 Erythrocyte distribution width (RBC) [Ratio] 16.1 % High 11.6-14.6 [facility] Erythrocyte distribution wid th standard deviationOrdered By: Perez Ribeiro on 07-11-2024 Erythrocyte distribution width (RBC) [Ratio] 66.4 fl High 35.1-43.9 [facility] Glomerular filtration rate ( GFR) estimation/1.73 sq m using serum, plasma, or whole bOrdered By: Perez Ribeiro on 07-11-2024 GFR/1.73 sq M.predicted among non-blacks MDRD (S/P/Bld) [Vol rate/Area] 72 mL/min/{1.73_m2} >60 [facility] H AND P Exam - Hospitaliston 07-11-2024 H&P Exam - Hospitalist Normal [facility] Hematocrit Auto (Bld) [Volum e fraction]Ordered By: Perez Ribeiro on 07-11-2024 Hematocrit (Bld) [Volume fraction] 29.1 % Low 40-54 [facility] Hemoglobin measurementOrdere d By: Perezalex Ribeiro on 07-11-2024 Hemoglobin (Bld) [Mass/Vol] 9.3 g/dL Low 13.0-16.5 [facility] Immature granulocytes/100 WB C Auto (Bld)Ordered By: Perez Ribeiro on 07-11-2024 Immature granulocytes/100 WBC (Bld) 0.500 % 0.0-0.9 [facility] Ketones Test strip Ql (U)Ord ered By: Perez Ribeiro on 07-11-2024 Ketones Ql (U) Negative Negative [facility] Lipaseon 07-11-2024 Lipase [Catalytic activity/Vol] 6 U/L Low 13-75 [facility] Comment on above: Result Comment: Mary Anne zamorano note:LIPASE revised reference range effective 22.New Lipase methodology. Expected to produce lower valuesthan the previous assay method.NEW Reference Range: 13 - 75 U/L Performed By: #### L 500.2500, L500.3400, L505.5000, L100.0100, L501.9100, L501.2450 ####[facility] [address] [place], [place], [address] Liver Profileon 07-11-2024 Albumin [Mass/Vol] 2.9 g/dL Low 3.4-4.8 [facility] Comment on above: Performed By: #### L 500.2500, L500.3400, L505.5000, L100.0100, L501.9100, L501.2450 ####[facility] [address] [place], [address] ALK PHOS 104 U/L Normal 40-129 [facility] Comment on above: Performed By: #### L 500.2500, L500.3400, L505.5000, L100.0100, L501.9100, L501.2450 ####[facility] [address] [place], [address] ALT [Catalytic activity/Vol] 23 U/L Normal <=46 [facility] Comment on above: Performed By: #### L 500.2500, L500.3400, L505.5000, L100.0100, L501.9100, L501.2450 ####[facility] [address] [place], [address] AST [Catalytic activity/Vol] 53 U/L High <=37 [facility] Comment on above: Performed By: #### L 500.2500, L500.3400, L505.5000, L100.0100, L501.9100, L501.2450 ####[facility] [address] [place], [address] Bilirubin [Mass/Vol] 0.34 mg/dL Normal 0.00-1.30 [facility] Comment on above: Performed By: #### L 500.2500, L500.3400, L505.5000, L100.0100, L501.9100, L501.2450 ####[facility] [address] [place], [address] Bilirubin.direct [Mass/Vol] 0.21 mg/dL Normal 0.00-0.30 [facility] Comment on above: Performed By: #### L 500.2500, L500.3400, L505.5000, L100.0100, L501.9100, L501.2450 ####[facility] [address] [place], [address] Globulin (S) [Mass/Vol] 2.8 g/dL Normal 2.2-4.2 [facility] Comment on above: Performed By: #### L 500.2500, L500.3400, L505.5000, L100.0100, L501.9100, L501.2450 ####[facility] [address] [place], [address] T PROT 5.7 g/dL Low 5.9-8.4 [facility] Comment on above: Performed By: #### L 500.2500, L500.3400, L505.5000, L100.0100, L501.9100, L501.2450 ####[facility] [address] [place], [address] MCV (mean corpuscular volume ) determinationOrdered By: Perez Ribeiro on 07-11-2024 MCV (RBC) [Entitic vol] 111.5 fL High 80-[address] [facility] Mean corpuscular hemoglobin (MCH) determinationOrdered By: Perez Ribeiro on 07-11-2024 MCH (RBC) [Entitic mass] 35.6 pg High 27.0-32.0 [facility] Monocyte percentageOrdered B y: Perez Ribeiro on 07-11-2024 Monocytes/100 WBC (Bld) 7.7 % 0-[address] [facility] Mucus LM Ql (Urine sed)Order ed By: Perez Ribeiro on 07-11-2024 Mucus Ql (Urine sed) 0 SEEN /hpf [facility] Neutrophil percentageOrdered By: Perez Ribeiro on 07-11-2024 Neutrophils/100 WBC (Bld) 74.9 % High 47-70 [facility] Nitrite Test strip Ql (U)Ord ered By: Perez Ribeiro on 07-11-2024 Nitrite Ql (U) Negative Negative [facility] No Panel InformationOrdered By: Perez Ribeiro on 07-11-2024 1+ [facility] 53 U/L High <38 [facility] Negative < 200 ng/mL [facility] Platelet countOrdered By: Prosper Ribeiro on 07-11-2024 Platelets (Bld) [#/Vol] 155 10*3/uL 150-450 [facility] Platelet estimateOrdered By: Perez Ribeiro on 07-11-2024 Platelets LM Ql (Bld) A ADEQ [facility] Potassium measurement (mass/ volume)Ordered By: Perez Ribeiro on 07-11-2024 Potassium (Unsp spec) [Mass/Vol] 4.6 mmol/L 3.3-5.1 [facility] Protein Test strip Ql (U)Ord ered By: Perez Ribeiro on 07-11-2024 Protein Ql (U) 15 mg/dl High Negative [facility] RBC Auto (Bld) [#/Vol]Ordere d By: Perez Ribeiro on 07-11-2024 RBC (Bld) [#/Vol] 2.61 10*6/uL Low 4.6-6.2 [facility] Screening urine fentanyl mine surementOrdered By: Perez Ribeiro on 07-11-2024 fentaNYL Screen Ql (U) Negative [facility] Serum creatinine measurement (mass/volume)Ordered By: Perez Ribeiro on 07-11-2024 Creatinine [Mass/Vol] 1.15 mg/dL 0.70-1.20 [facility] Serum globulin measurementOr dered By: Perez Ribeiro on 07-11-2024 Globulin (S) [Mass/Vol] 2.8 g/dL 2.2-4.[address] [facility] Serum glucose measurement (m ass/volume)Ordered By: Perez Ribeiro on 07-11-2024 Glucose [Mass/Vol] 137 mg/dL High 70-99 [facility] Serum or plasma alanine padilla otransferase (ALT) measurementOrdered By: Perez Ribeiro on 07-11-2024 ALT [Catalytic activity/Vol] 23 U/L <47 [facility] Serum or plasma albumin luciana urement (mass/volume)Ordered By: Perez Ribeiro on 07-11-2024 Albumin [Mass/Vol] 2.9 g/dL Low 3.4-4.8 [facility] Serum or plasma alkaline nolan sphatase measurementOrdered By: Perez Ribeiro on 07-11-2024 ALP [Catalytic activity/Vol] 104 U/L 40-129 [facility] Serum or plasma calcium luciana urement (mass/volume)Ordered By: Perez Ribeiro on 07-11-2024 Calcium [Mass/Vol] 8.3 mg/dL 7.6-11.0 [facility] Serum or plasma ethanol luciana urement (mass/volume)Ordered By: Perez Ribeiro on 07-11-2024 Ethanol [Mass/Vol] mg/dL <10.1 [facility] Serum or plasma urea nitroge n measurement (mass/volume)Ordered By: Perez Ribeiro on 07-11-2024 Urea nitrogen [Mass/Vol] 10 mg/dL 4-19 [facility] Sodium levelOrdered By: Beto Ribeiro on 07-11-2024 Sodium [Moles/Vol] 140 mmol/L 133-145 [facility] Squamous epithelial cells de tection in urine sediment by light microscopyOrdered By: Perez Ribeiro on 07-11-2024 Epithelial cells.squamous LM Ql (Urine sed) 0 SEEN /hpf 0-5 [facility] Total proteinOrdered By: Alonso Ribeiro on 07-11-2024 Protein [Mass/Vol] 5.7 g/dL Low 5.9-8.4 [facility] Urinalysis, Completeon 07-11 BACTERIA 0 SEEN Normal None Seen [facility] Comment on above: Order Comment: CLEAN CATCH Performed By: #### L 400.0001 ####[facility] [address] [place], [address] EPI,SQUAMOUS 0 SEEN Normal 0-5 [facility] Comment on above: Order Comment: CLEAN CATCH Performed By: #### L 400.0001 ####[facility] [address] [place], [address] Mucus Ql (Urine sed) 0 SEEN Normal [facility] Comment on above: Order Comment: CLEAN CATCH Performed By: #### L 400.0001 ####[facility] [address] [place], [address] RBC 0 SEEN Normal 0-5 [facility] Comment on above: Order Comment: CLEAN CATCH Performed By: #### L 400.0001 ####[facility] [address] [place], [address] WBC 0 SEEN Normal 0-5 [facility] Comment on above: Order Comment: CLEAN CATCH Performed By: #### L 400.0001 ####[facility] [address] [place], [address] Urine Drug Screen (VISTA)on 07-11-2024 AMPHETAMINES Negative Normal <1000 ng/mL [facility] Comment on above: Performed By: #### L 500.2500, L500.3400, L505.5000, L100.0100, L501.9100, L501.2450 ####[facility] [address] [place], [address] BARBITIURATES Positive Normal < 200 ng/mL [facility] Comment on above: Result Comment: If c onfirmation testing is needed, a separate order will berequired to send out testing to the reference laboratory. Performed By: #### L 500.2500, L500.3400, L505.5000, L100.0100, L501.9100, L501.2450 ####[facility] [address] [place], [place], [phone] BENZODIAZIPINE Negative Normal < 200 ng/mL [facility] Comment on above: Performed By: #### L 500.2500, L500.3400, L505.5000, L100.0100, L501.9100, L501.2450 ####[facility] [address] [place], [place], [phone] BUP Ur Drug Scr Negative Normal < 200 ng/mL [facility] Comment on above: Performed By: #### L 500.2500, L500.3400, L505.5000, L100.0100, L501.9100, L501.2450 ####[facility] [address] [place], [place], [phone] COCAINE Negative Normal < 300 ng/mL [facility] Comment on above: Performed By: #### L 500.2500, L500.3400, L505.5000, L100.0100, L501.9100, L501.2450 ####[facility] [address] [place], [address] Fentanyl Negative Normal [facility] Comment on above: Performed By: #### L 500.2500, L500.3400, L505.5000, L100.0100, L501.9100, L501.2450 ####[facility] [address] [place], [address] METHADONE Negative Normal < 300 ng/mL [facility] Comment on above: Performed By: #### L 500.2500, L500.3400, L505.5000, L100.0100, L501.9100, L501.2450 ####[facility] [address] [place], [place], [phone] OPIATES Negative Normal < 300 ng/mL [facility] Comment on above: Performed By: #### L 500.2500, L500.3400, L505.5000, L100.0100, L501.9100, L501.2450 ####[facility] [address] [place], [place], [phone] OXYCODONE Negative Normal < 100 ng/mL [facility] Comment on above: Performed By: #### L 500.2500, L500.3400, L505.5000, L100.0100, L501.9100, L501.2450 ####[facility] [address] [place], [place], [phone] PCP Negative Normal < 25 ng/mL [facility] Comment on above: Performed By: #### L 500.2500, L500.3400, L505.5000, L100.0100, L501.9100, L501.2450 ####[facility] [address] [place], [address] THC Negative Normal < 50 ng/mL [facility] Comment on above: Performed By: #### L 500.2500, L500.3400, L505.5000, L100.0100, L501.9100, L501.2450 ####[facility] [address] [place], [address] Urine clarityOrdered By: Alonso Ribeiro on 07-11-2024 Clarity (U) Clear Clear [facility] Urine color determinationOrd ered By: Perez Ribeiro on 07-11-2024 Color (U) Yellow Yellow [facility] Urine glucose detectionOrder ed By: Perez Ribeiro on 07-11-2024 Glucose Ql (U) Normal mg/dl Normal [facility] Urine leukocyte esterase det ection by dipstickOrdered By: Perez Ribeiro on 07-11-2024 Leukocyte esterase Test strip Ql (U) Negative Negative [facility] Urine pHOrdered By: Perez plaza on 07-11-2024 pH (U) 8.0 [pH] 5.0 - 8.0 [facility] Urine phencyclidine (PCP) de tectionOrdered By: Perez Ribeiro on 07-11-2024 Phencyclidine Ql (U) Negative < 25 ng/mL [facility] Urine sediment bacteria coun t by microscopy (number/high power field)Ordered By: Perez Ribeiro on 07-11-2024 Bacteria LM.HPF (Urine sed) [#/Area] 0 /[HPF] None Seen [facility] Urine specific gravity measu rementOrdered By: Perez Ribeiro on 07-11-2024 Specific gravity (U) [Rel density] 1.010 1.002-1.030 [facility] Urine urobilinogen measureme ntOrdered By: Perez Ribeiro on 07-11-2024 Urobilinogen Ql (U) Normal mg/dl Normal [facility] White blood cell (WBC) count Ordered By: Perez Ribeiro on 07-11-2024 WBC (Bld) [#/Vol] 5.6 10*3/uL 4.4-11.0 [facility] White blood cell countOrdere d By: Perez Ribeiro on 07-11-2024 White blood cell count 0 SEEN /hpf 0-[address] [facility] Basic Metabolic Profile (BMP )on 07-10-2024 BUN Normal 4-19 [facility] Comment on above: Result Comment: Canc elled via OM: Order cancelled - Patient discharged Performed By: #### L 500.2500, L100.0500 ####[facility] [address] [place], [address] BUN/CRE Normal 10-20 [facility] Comment on above: Result Comment: Canc elled via OM: Order cancelled - Patient discharged Performed By: #### L 500.2500, L100.0500 ####[facility] [address] [place], [address] Calcium Normal 7.6-11.0 [facility] Comment on above: Result Comment: Canc elled via OM: Order cancelled - Patient discharged Performed By: #### L 500.2500, L100.0500 ####[facility] [address] [place], [address] CL Normal 98-108 [facility] Comment on above: Result Comment: Canc elled via OM: Order cancelled - Patient discharged Performed By: #### L 500.2500, L100.0500 ####[facility] [address] [place], [address] CO2 Normal 21.0-32.0 [facility] Comment on above: Result Comment: Canc elled via OM: Order cancelled - Patient discharged Performed By: #### L 500.2500, L100.0500 ####[facility] [address] [place], [address] CREAT,SERUM Normal 0.70-1.20 [facility] Comment on above: Result Comment: Canc elled via OM: Order cancelled - Patient discharged Performed By: #### L 500.2500, L100.0500 ####[facility] [address] [place], [address] eGFR Normal >60 [facility] Comment on above: Result Comment: Canc elled via OM: Order cancelled - Patient discharged Performed By: #### L 500.2500, L100.0500 ####[facility] [address] [place], [address] GAP Normal 5-15 [facility] Comment on above: Result Comment: Canc elled via OM: Order cancelled - Patient discharged Performed By: #### L 500.2500, L100.0500 ####[facility] [address] [place], [address] GLU Normal 70-99 [facility] Comment on above: Result Comment: Canc elled via OM: Order cancelled - Patient discharged Performed By: #### L 500.2500, L100.0500 ####[facility] [address] [place], [address] Potassium Normal 3.3-5.1 [facility] Comment on above: Result Comment: Canc elled via OM: Order cancelled - Patient discharged Performed By: #### L 500.2500, L100.0500 ####[facility] [address] [place], [address] Basic Metabolic Profile (BMP) Normal 133-145 [facility] Comment on above: Result Comment: Canc elled via OM: Order cancelled - Patient discharged Performed By: #### L 500.2500, L100.0500 ####[facility] [address] [place], [address] CBC-Complete Blood Cnt No Di ffon 07-10-2024 HCT Normal 40-54 [facility] Comment on above: Result Comment: Canc elled via OM: Order cancelled - Patient discharged Performed By: #### L 500.2500, L100.0500 ####[facility] [address] [place], [address] HGB Normal 13.0-16.5 [facility] Comment on above: Result Comment: Canc elled via OM: Order cancelled - Patient discharged Performed By: #### L 500.2500, L100.0500 ####[facility] [address] [place], [address] MCH Normal 27.0-32.0 [facility] Comment on above: Result Comment: Canc elled via OM: Order cancelled - Patient discharged Performed By: #### L 500.2500, L100.0500 ####[facility] [address] [place], [address] MCHC Normal 32-36 [facility] Comment on above: Result Comment: Canc elled via OM: Order cancelled - Patient discharged Performed By: #### L 500.2500, L100.0500 ####[facility] [address] [place], [address] MCV Normal 80-94 [facility] Comment on above: Result Comment: Canc elled via OM: Order cancelled - Patient discharged Performed By: #### L 500.2500, L100.0500 ####[facility] [address] [place], [address] PLT Normal 150-450 [facility] Comment on above: Result Comment: Canc elled via OM: Order cancelled - Patient discharged Performed By: #### L 500.2500, L100.0500 ####[facility] [address] [place], [address] RBC Normal 4.6-6.2 [facility] Comment on above: Result Comment: Canc elled via OM: Order cancelled - Patient discharged Performed By: #### L 500.2500, L100.0500 ####[facility] [address] [place], [address] RDW CV Normal 11.6-14.6 [facility] Comment on above: Result Comment: Canc elled via OM: Order cancelled - Patient discharged Performed By: #### L 500.2500, L100.0500 ####[facility] [address] [place], [address] RDW SD Normal 35.1-43.9 [facility] Comment on above: Result Comment: Canc elled via OM: Order cancelled - Patient discharged Performed By: #### L 500.2500, L100.0500 ####[facility] [address] [place], [address] WBC Normal 4.4-11.0 [facility] Comment on above: Result Comment: Canc elled via OM: Order cancelled - Patient discharged Performed By: #### L 500.2500, L100.0500 ####[facility] [address] [place], [address] Basic Metabolic Profile (BMP )on 07-09-2024 BUN Normal 4-19 [facility] Comment on above: Result Comment: Canc elled via OM: MD Ordered Performed By: #### L 500.2500 ####[facility] [address] [place], [address] Result Comment: Canc elled via OM: Order cancelled - Patient discharged Performed By: #### L 500.2500, L100.0500 ####[facility] [address] [place], [address] BUN/CRE Normal 10-20 [facility] Comment on above: Result Comment: Canc elled via OM: MD Ordered Performed By: #### L 500.2500 ####[facility] [address] [place], [address] Result Comment: Canc elled via OM: Order cancelled - Patient discharged Performed By: #### L 500.2500, L100.0500 ####[facility] [address] [place], [address] Calcium Normal 7.6-11.0 [facility] Comment on above: Result Comment: Canc elled via OM: MD Ordered Performed By: #### L 500.2500 ####[facility] [address] [place], [address] Result Comment: Canc elled via OM: Order cancelled - Patient discharged Performed By: #### L 500.2500, L100.0500 ####[facility] [address] [place], [address] CL Normal 98-108 [facility] Comment on above: Result Comment: Canc elled via OM: MD Ordered Performed By: #### L 500.2500 ####[facility] [address] [place], [address] Result Comment: Canc elled via OM: Order cancelled - Patient discharged Performed By: #### L 500.2500, L100.0500 ####[facility] [address] [place], [address] CO2 Normal 21.0-32.0 [facility] Comment on above: Result Comment: Canc elled via OM: MD Ordered Performed By: #### L 500.2500 ####[facility] [address] [place], [address] Result Comment: Canc elled via OM: Order cancelled - Patient discharged Performed By: #### L 500.2500, L100.0500 ####[facility] [address] [place], [address] CREAT,SERUM Normal 0.70-1.20 [facility] Comment on above: Result Comment: Canc elled via OM: MD Ordered Performed By: #### L 500.2500 ####[facility] [address] [place], [address] Result Comment: Canc elled via OM: Order cancelled - Patient discharged Performed By: #### L 500.2500, L100.0500 ####[facility] [address] [place], [address] eGFR Normal >60 [facility] Comment on above: Result Comment: Canc elled via OM: MD Ordered Performed By: #### L 500.2500 ####[facility] [address] [place], [address] Result Comment: Canc elled via OM: Order cancelled - Patient discharged Performed By: #### L 500.2500, L100.0500 ####[facility] [address] [place], [address] GAP Normal 5-15 [facility] Comment on above: Result Comment: Canc elled via OM: MD Ordered Performed By: #### L 500.2500 ####[facility] [address] [place], [address] Result Comment: Canc elled via OM: Order cancelled - Patient discharged Performed By: #### L 500.2500, L100.0500 ####[facility] [address] [place], [address] GLU Normal 70-99 [facility] Comment on above: Result Comment: Canc elled via OM: MD Ordered Performed By: #### L 500.2500 ####[facility] [address] [place], [address] Result Comment: Canc elled via OM: Order cancelled - Patient discharged Performed By: #### L 500.2500, L100.0500 ####[facility] [address] [place], [address] Potassium Normal 3.3-5.1 [facility] Comment on above: Result Comment: Canc elled via OM: MD Ordered Performed By: #### L 500.2500 ####[facility] [address] [place], [address] Result Comment: Canc elled via OM: Order cancelled - Patient discharged Performed By: #### L 500.2500, L100.0500 ####[facility] [address] [place], [address] Basic Metabolic Profile (BMP) Normal 133-145 [facility] Comment on above: Result Comment: Canc elled via OM: MD Ordered Performed By: #### L 500.2500 ####[facility] [address] [place], [address] Result Comment: Canc elled via OM: Order cancelled - Patient discharged Performed By: #### L 500.2500, L100.0500 ####[facility] [address] [place], [address] CBC-Complete Blood Cnt No Di ffon 07-09-2024 HCT Normal 40-54 [facility] Comment on above: Result Comment: Canc elled via OM: MD Ordered Performed By: #### L 100.0500 ####[facility] [address] [place], [address] HGB Normal 13.0-16.5 [facility] Comment on above: Result Comment: Canc elled via OM: MD Ordered Performed By: #### L 100.0500 ####[facility] [address] [place], [address] MCH Normal 27.0-32.0 [facility] Comment on above: Result Comment: Canc elled via OM: MD Ordered Performed By: #### L 100.0500 ####[facility] [address] [place], [address] MCHC Normal 32-36 [facility] Comment on above: Result Comment: Canc elled via OM: MD Ordered Performed By: #### L 100.0500 ####[facility] [address] [place], [address] MCV Normal 80-94 [facility] Comment on above: Result Comment: Canc elled via OM: MD Ordered Performed By: #### L 100.0500 ####[facility] [address] [place], [address] PLT Normal 150-450 [facility] Comment on above: Result Comment: Canc elled via OM: MD Ordered Performed By: #### L 100.0500 ####[facility] [address] [place], [address] RBC Normal 4.6-6.2 [facility] Comment on above: Result Comment: Canc elled via OM: MD Ordered Performed By: #### L 100.0500 ####[facility] [address] [place], [address] RDW CV Normal 11.6-14.6 [facility] Comment on above: Result Comment: Canc elled via OM: MD Ordered Performed By: #### L 100.0500 ####[facility] [address] [place], [address] RDW SD Normal 35.1-43.9 [facility] Comment on above: Result Comment: Canc elled via OM: MD Ordered Performed By: #### L 100.0500 ####[facility] [address] [place], [address] WBC Normal 4.4-11.0 [facility] Comment on above: Result Comment: Canc elled via OM: MD Ordered Performed By: #### L 100.0500 ####[facility] [address] [place], [address] HCT Normal 40-54 [facility] Comment on above: Result Comment: Canc elled via OM: Order cancelled - Patient discharged Performed By: #### L 500.2500, L100.0500 ####[facility] [address] [place], [address] HGB Normal 13.0-16.5 [facility] Comment on above: Result Comment: Canc elled via OM: Order cancelled - Patient discharged Performed By: #### L 500.2500, L100.0500 ####[facility] [address] [place], [address] MCH Normal 27.0-32.0 [facility] Comment on above: Result Comment: Canc elled via OM: Order cancelled - Patient discharged Performed By: #### L 500.2500, L100.0500 ####[facility] [address] [place], [address] MCHC Normal 32-36 [facility] Comment on above: Result Comment: Canc elled via OM: Order cancelled - Patient discharged Performed By: #### L 500.2500, L100.0500 ####[facility] [address] [place], [address] MCV Normal 80-94 [facility] Comment on above: Result Comment: Canc elled via OM: Order cancelled - Patient discharged Performed By: #### L 500.2500, L100.0500 ####[facility] [address] [place], [address] PLT Normal 150-450 [facility] Comment on above: Result Comment: Canc elled via OM: Order cancelled - Patient discharged Performed By: #### L 500.2500, L100.0500 ####[facility] [address] [place], [address] RBC Normal 4.6-6.2 [facility] Comment on above: Result Comment: Canc elled via OM: Order cancelled - Patient discharged Performed By: #### L 500.2500, L100.0500 ####[facility] [address] [place], [address] RDW CV Normal 11.6-14.6 [facility] Comment on above: Result Comment: Canc elled via OM: Order cancelled - Patient discharged Performed By: #### L 500.2500, L100.0500 ####[facility] [address] [place], [address] RDW SD Normal 35.1-43.9 [facility] Comment on above: Result Comment: Canc elled via OM: Order cancelled - Patient discharged Performed By: #### L 500.2500, L100.0500 ####[facility] [address] [place], [address] WBC Normal 4.4-11.0 [facility] Comment on above: Result Comment: Canc elled via OM: Order cancelled - Patient discharged Performed By: #### L 500.2500, L100.0500 ####[facility] [address] [place], [address] Basic Metabolic Profile (BMP )on 07-08-2024 BUN Normal 4-19 [facility] Comment on above: Result Comment: Canc elled via OM: Order cancelled - Patient discharged Performed By: #### L 500.2500, L100.0500 ####[facility] [address] [place], [address] BUN/CRE Normal 10-20 [facility] Comment on above: Result Comment: Canc elled via OM: Order cancelled - Patient discharged Performed By: #### L 500.2500, L100.0500 ####[facility] [address] [place], [address] Calcium Normal 7.6-11.0 [facility] Comment on above: Result Comment: Canc elled via OM: Order cancelled - Patient discharged Performed By: #### L 500.2500, L100.0500 ####[facility] [address] [place], [address] CL Normal 98-108 [facility] Comment on above: Result Comment: Canc elled via OM: Order cancelled - Patient discharged Performed By: #### L 500.2500, L100.0500 ####[facility] [address] [place], [address] CO2 Normal 21.0-32.0 [facility] Comment on above: Result Comment: Canc elled via OM: Order cancelled - Patient discharged Performed By: #### L 500.2500, L100.0500 ####[facility] [address] [place], [address] CREAT,SERUM Normal 0.70-1.20 [facility] Comment on above: Result Comment: Canc elled via OM: Order cancelled - Patient discharged Performed By: #### L 500.2500, L100.0500 ####[facility] [address] [place], [address] eGFR Normal >60 [facility] Comment on above: Result Comment: Canc elled via OM: Order cancelled - Patient discharged Performed By: #### L 500.2500, L100.0500 ####[facility] [address] [place], [address] GAP Normal 5-15 [facility] Comment on above: Result Comment: Canc elled via OM: Order cancelled - Patient discharged Performed By: #### L 500.2500, L100.0500 ####[facility] [address] [place], [address] GLU Normal 70-99 [facility] Comment on above: Result Comment: Canc elled via OM: Order cancelled - Patient discharged Performed By: #### L 500.2500, L100.0500 ####[facility] [address] [place], [address] Potassium Normal 3.3-5.1 [facility] Comment on above: Result Comment: Canc elled via OM: Order cancelled - Patient discharged Performed By: #### L 500.2500, L100.0500 ####[facility] [address] [place], [address] Basic Metabolic Profile (BMP) Normal 133-145 [facility] Comment on above: Result Comment: Canc elled via OM: Order cancelled - Patient discharged Performed By: #### L 500.2500, L100.0500 ####[facility] [address] [place], [address] CBC-Complete Blood Cnt No Di ffon 07-08-2024 HCT Normal 40-54 [facility] Comment on above: Result Comment: Canc elled via OM: Order cancelled - Patient discharged Performed By: #### L 500.2500, L100.0500 ####[facility] [address] [place], [address] HGB Normal 13.0-16.5 [facility] Comment on above: Result Comment: Canc elled via OM: Order cancelled - Patient discharged Performed By: #### L 500.2500, L100.0500 ####[facility] [address] [place], [address] MCH Normal 27.0-32.0 [facility] Comment on above: Result Comment: Canc elled via OM: Order cancelled - Patient discharged Performed By: #### L 500.2500, L100.0500 ####[facility] [address] [place], [address] MCHC Normal 32-36 [facility] Comment on above: Result Comment: Canc elled via OM: Order cancelled - Patient discharged Performed By: #### L 500.2500, L100.0500 ####[facility] [address] [place], [address] MCV Normal 80-94 [facility] Comment on above: Result Comment: Canc elled via OM: Order cancelled - Patient discharged Performed By: #### L 500.2500, L100.0500 ####[facility] [address] [place], [address] PLT Normal 150-450 [facility] Comment on above: Result Comment: Canc elled via OM: Order cancelled - Patient discharged Performed By: #### L 500.2500, L100.0500 ####[facility] [address] [place], [address] RBC Normal 4.6-6.2 [facility] Comment on above: Result Comment: Canc elled via OM: Order cancelled - Patient discharged Performed By: #### L 500.2500, L100.0500 ####[facility] [address] [place], [address] RDW CV Normal 11.6-14.6 [facility] Comment on above: Result Comment: Canc elled via OM: Order cancelled - Patient discharged Performed By: #### L 500.2500, L100.0500 ####[facility] [address] [place], [address] RDW SD Normal 35.1-43.9 [facility] Comment on above: Result Comment: Canc elled via OM: Order cancelled - Patient discharged Performed By: #### L 500.2500, L100.0500 ####[facility] [address] [place], [address] WBC Normal 4.4-11.0 [facility] Comment on above: Result Comment: Canc elled via OM: Order cancelled - Patient discharged Performed By: #### L 500.2500, L100.0500 ####[facility] [address] [place], [address] ANCAon 07-07-2024 Atypical pANCA <1:20 Normal Neg:<1:20 [facility] Comment on above: Result Comment: The atypical pANCA pattern has been observed in asignificant percentage of patients with ulcerative colitis,primary sclerosing cholangitis and autoimmune hepatitis. Performed By: #### L 3400.8000, L3410.2350, L3300.1200, L3600.4030, L3100.3425, L501.6710, L101.9900 ####[facility] [address] [place], [address] Cytoplasmic Ab <1:20 Normal Neg:<1:20 [facility] Comment on above: Performed By: #### L 3400.8000, L3410.2350, L3300.1200, L3600.4030, L3100.3425, L501.6710, L101.9900 ####[facility] [address] [place], [place], [phone] Perinuclear Ab. <1:20 Normal Neg:<1:20 [facility] Comment on above: Result Comment: The presence of positive fluorescence exhibiting P-ANCA orC-ANCA patterns alone is not specific for the diagnosis ofWegener's Granulomatosis (WG) or microscopic polyangiitis.Decisions about treatment should not be based solely onANCA IFA results. The [employer] AN[employer] Consensusrecommends follow up testing of positive sera with both NJ-3 and MPO-ANCA enzyme immunoassays. As many as 5% serumsamples are positive only by EIA. Ref. AM J Clin Ghgkai1837;111:507-513. Performed By: #### L 3400.8000, L3410.2350, L3300.1200, L3600.4030, L3100.3425, L501.6710, L101.9900 ####[facility] [address] [place], [place], [phone] Basic Metabolic Profile (BMP )on 07-07-2024 BUN Normal 4-19 [facility] Comment on above: Result Comment: Canc elled via OM: MD Ordered Performed By: #### L 500.2500 ####[facility] [address] [place], [place], [phone] Result Comment: Canc elled via OM: Order cancelled - Patient discharged Performed By: #### L 100.0500, L500.2500 ####[facility] [address] [place], [address] BUN/CRE Normal 10-20 [facility] Comment on above: Result Comment: Canc elled via OM: MD Ordered Performed By: #### L 500.2500 ####[facility] [address] [place], [address] Result Comment: Canc elled via OM: Order cancelled - Patient discharged Performed By: #### L 100.0500, L500.2500 ####[facility] [address] [place], [address] Calcium Normal 7.6-11.0 [facility] Comment on above: Result Comment: Canc elled via OM: MD Ordered Performed By: #### L 500.2500 ####[facility] [address] [place], [address] Result Comment: Canc elled via OM: Order cancelled - Patient discharged Performed By: #### L 100.0500, L500.2500 ####[facility] [address] [place], [address] CL Normal 98-108 [facility] Comment on above: Result Comment: Canc elled via OM: MD Ordered Performed By: #### L 500.2500 ####[facility] [address] [place], [address] Result Comment: Canc elled via OM: Order cancelled - Patient discharged Performed By: #### L 100.0500, L500.2500 ####[facility] [address] [place], [address] CO2 Normal 21.0-32.0 [facility] Comment on above: Result Comment: Canc elled via OM: MD Ordered Performed By: #### L 500.2500 ####[facility] [address] [place], [address] Result Comment: Canc elled via OM: Order cancelled - Patient discharged Performed By: #### L 100.0500, L500.2500 ####[facility] [address] [place], [address] CREAT,SERUM Normal 0.70-1.20 [facility] Comment on above: Result Comment: Canc elled via OM: MD Ordered Performed By: #### L 500.2500 ####[facility] [address] [place], [address] Result Comment: Canc elled via OM: Order cancelled - Patient discharged Performed By: #### L 100.0500, L500.2500 ####[facility] [address] [place], [address] eGFR Normal >60 [facility] Comment on above: Result Comment: Canc elled via OM: MD Ordered Performed By: #### L 500.2500 ####[facility] [address] [place], [address] Result Comment: Canc elled via OM: Order cancelled - Patient discharged Performed By: #### L 100.0500, L500.2500 ####[facility] [address] [place], [address] GAP Normal 5-15 [facility] Comment on above: Result Comment: Canc elled via OM: MD Ordered Performed By: #### L 500.2500 ####[facility] [address] [place], [address] Result Comment: Canc elled via OM: Order cancelled - Patient discharged Performed By: #### L 100.0500, L500.2500 ####[facility] [address] [place], [address] GLU Normal 70-99 [facility] Comment on above: Result Comment: Canc elled via OM: MD Ordered Performed By: #### L 500.2500 ####[facility] [address] [place], [address] Result Comment: Canc elled via OM: Order cancelled - Patient discharged Performed By: #### L 100.0500, L500.2500 ####[facility] [address] [place], [address] Potassium Normal 3.3-5.1 [facility] Comment on above: Result Comment: Canc elled via OM: MD Ordered Performed By: #### L 500.2500 ####[facility] [address] [place], [address] Result Comment: Canc elled via OM: Order cancelled - Patient discharged Performed By: #### L 100.0500, L500.2500 ####[facility] [address] [place], [address] Basic Metabolic Profile (BMP) Normal 133-145 [facility] Comment on above: Result Comment: Canc elled via OM: MD Ordered Performed By: #### L 500.2500 ####[facility] [address] [place], [address] Result Comment: Canc elled via OM: Order cancelled - Patient discharged Performed By: #### L 100.0500, L500.2500 ####[facility] [address] [place], [address] CBC-Complete Blood Cnt No Di ffon 07-07-2024 HCT Normal 40-54 [facility] Comment on above: Result Comment: Canc elled via OM: MD Ordered Performed By: #### L 100.0500 ####[facility] [address] [place], [address] HGB Normal 13.0-16.5 [facility] Comment on above: Result Comment: Canc elled via OM: MD Ordered Performed By: #### L 100.0500 ####[facility] [address] [place], [address] MCH Normal 27.0-32.0 [facility] Comment on above: Result Comment: Canc elled via OM: MD Ordered Performed By: #### L 100.0500 ####[facility] [address] [place], [address] MCHC Normal 32-36 [facility] Comment on above: Result Comment: Canc elled via OM: MD Ordered Performed By: #### L 100.0500 ####[facility] [address] [place], [address] MCV Normal 80-94 [facility] Comment on above: Result Comment: Canc elled via OM: MD Ordered Performed By: #### L 100.0500 ####[facility] [address] [place], [address] PLT Normal 150-450 [facility] Comment on above: Result Comment: Canc elled via OM: MD Ordered Performed By: #### L 100.0500 ####[facility] [address] [place], [address] RBC Normal 4.6-6.2 [facility] Comment on above: Result Comment: Canc elled via OM: MD Ordered Performed By: #### L 100.0500 ####[facility] [address] [place], [address] RDW CV Normal 11.6-14.6 [facility] Comment on above: Result Comment: Canc elled via OM: MD Ordered Performed By: #### L 100.0500 ####[facility] [address] [place], [address] RDW SD Normal 35.1-43.9 [facility] Comment on above: Result Comment: Canc elled via OM: MD Ordered Performed By: #### L 100.0500 ####[facility] [address] [place], [address] WBC Normal 4.4-11.0 [facility] Comment on above: Result Comment: Canc elled via OM: MD Ordered Performed By: #### L 100.0500 ####[facility] [address] [place], [address] HCT Normal 40-54 [facility] Comment on above: Result Comment: Canc elled via OM: Order cancelled - Patient discharged Performed By: #### L 100.0500, L500.2500 ####[facility] [address] [place], [address] HGB Normal 13.0-16.5 [facility] Comment on above: Result Comment: Canc elled via OM: Order cancelled - Patient discharged Performed By: #### L 100.0500, L500.2500 ####[facility] [address] [place], [address] MCH Normal 27.0-32.0 [facility] Comment on above: Result Comment: Canc elled via OM: Order cancelled - Patient discharged Performed By: #### L 100.0500, L500.2500 ####[facility] [address] [place], [address] MCHC Normal 32-36 [facility] Comment on above: Result Comment: Canc elled via OM: Order cancelled - Patient discharged Performed By: #### L 100.0500, L500.2500 ####[facility] [address] [place], [address] MCV Normal 80-94 [facility] Comment on above: Result Comment: Canc elled via OM: Order cancelled - Patient discharged Performed By: #### L 100.0500, L500.2500 ####[facility] [address] [place], [address] PLT Normal 150-450 [facility] Comment on above: Result Comment: Canc elled via OM: Order cancelled - Patient discharged Performed By: #### L 100.0500, L500.2500 ####[facility] [address] [place], [address] RBC Normal 4.6-6.2 [facility] Comment on above: Result Comment: Canc elled via OM: Order cancelled - Patient discharged Performed By: #### L 100.0500, L500.2500 ####[facility] [address] [place], [address] RDW CV Normal 11.6-14.6 [facility] Comment on above: Result Comment: Canc elled via OM: Order cancelled - Patient discharged Performed By: #### L 100.0500, L500.2500 ####[facility] [address] [place], [address] RDW SD Normal 35.1-43.9 [facility] Comment on above: Result Comment: Canc elled via OM: Order cancelled - Patient discharged Performed By: #### L 100.0500, L500.2500 ####[facility] [address] [place], [address] WBC Normal 4.4-11.0 [facility] Comment on above: Result Comment: Canc elled via OM: Order cancelled - Patient discharged Performed By: #### L 100.0500, L500.2500 ####[facility] [address] [place], [address] Celiac AB,Comprehensiveon ANTIGLIADIN IGA 2 units Normal 0-19 [facility] Comment on above: Result Comment: Nega tive 0 - 19 Weak Positive 20 - 30 Moderate to Strong Positive >30 Performed By: #### L 3400.8000, L3410.2350, L3300.1200, L3600.4030, L3100.3425, L501.6710, L101.9900 ####[facility] [address] [place], [address] ANTIGLIADIN IGG <1 Normal 0-19 [facility] Comment on above: Result Comment: Nega tive 0 - 19 Weak Positive 20 - 30 Moderate to Strong Positive >30 Performed By: #### L 3400.8000, L3410.2350, L3300.1200, L3600.4030, L3100.3425, L501.6710, L101.9900 ####[facility] [address] [place], [place], [address] ENDOMYSIAL IGA Negative Normal Negative [facility] Comment on above: Performed By: #### L 3400.8000, L3410.2350, L3300.1200, L3600.4030, L3100.3425, L501.6710, L101.9900 ####[facility] [address] [place], [address] tTG IGA <2 Normal 0-3 [facility] Comment on above: Result Comment: Nega tive 0 - 3 Weak Positive 4 - 10 Positive >10 Tissue Transglutaminase (tTG) has been identified as the endomysial antigen. Studies have demonstr- ated that endomysial IgA antibodies have over 99% specificity for gluten sensitive enteropathy. Performed By: #### L 3400.8000, L3410.2350, L3300.1200, L3600.4030, L3100.3425, L501.6710, L101.9900 ####[facility] [address] [place], [place], [address] tTG IGG <2 Normal 0-5 [facility] Comment on above: Result Comment: Nega tive 0 - 5 Weak Positive 6 - 9 Positive >9 Performed By: #### L 3400.8000, L3410.2350, L3300.1200, L3600.4030, L3100.3425, L501.6710, L101.9900 ####[facility] [address] [place], [address] HELENA + Protein Elect, Serumon 07-07-2024 Albumin [Mass/Vol] 2.1 g/dL Low 2.9-4.4 [facility] Comment on above: Order Comment: N Performed By: #### L 3400.8000, L3410.2350, L3300.1200, L3600.4030, L3100.3425, L501.6710, L101.9900 ####[facility] [address] [place], [address] Albumin/Globulin [Mass ratio] 1.1 {ratio} Normal 0.7-1.7 [facility] Comment on above: Order Comment: N Performed By: #### L 3400.8000, L3410.2350, L3300.1200, L3600.4030, L3100.3425, L501.6710, L101.9900 ####[facility] [address] [place], [address] QNYWG-0-QVVO 0.2 g/dL Normal 0.0-0.4 [facility] Comment on above: Order Comment: N Performed By: #### L 3400.8000, L3410.2350, L3300.1200, L3600.4030, L3100.3425, L501.6710, L101.9900 ####[facility] [address] [place], [address] MBARS-1-PQES 0.4 g/dL Normal 0.4-1.0 [facility] Comment on above: Order Comment: N Performed By: #### L 3400.8000, L3410.2350, L3300.1200, L3600.4030, L3100.3425, L501.6710, L101.9900 ####[facility] [address] [place], [address] BETA GLOBULIN 0.7 g/dL Normal 0.7-1.3 [facility] Comment on above: Order Comment: N Performed By: #### L 3400.8000, L3410.2350, L3300.1200, L3600.4030, L3100.3425, L501.6710, L101.9900 ####[facility] [address] [place], [address] GAMMA GLOBULIN 0.7 g/dL Normal 0.4-1.8 [facility] Comment on above: Order Comment: N Performed By: #### L 3400.8000, L3410.2350, L3300.1200, L3600.4030, L3100.3425, L501.6710, L101.9900 ####[facility] [address] [place], [address] Globulin (S) [Mass/Vol] 2.0 g/dL Abnormal 2.2-3.[address] [facility] Comment on above: Order Comment: N Performed By: #### L 3400.8000, L3410.2350, L3300.1200, L3600.4030, L3100.3425, L501.6710, L101.9900 ####[facility] [address] [place], [address] HELENA RESULT,S Comment Normal . [facility] Comment on above: Order Comment: N Result Comment: No m onoclonality detected. Performed By: #### L 3400.8000, L3410.2350, L3300.1200, L3600.4030, L3100.3425, L501.6710, L101.9900 ####[facility] [address] [place], [address] IMMUNOGLOB A QN 318 mg/dL Normal 61-437 [facility] Comment on above: Order Comment: N Performed By: #### L 3400.8000, L3410.2350, L3300.1200, L3600.4030, L3100.3425, L501.6710, L101.9900 ####[facility] [address] [place], [address] IMMUNOGLOB G QN 839 mg/dL Normal 603-1613 [facility] Comment on above: Order Comment: N Performed By: #### L 3400.8000, L3410.2350, L3300.1200, L3600.4030, L3100.3425, L501.6710, L101.9900 ####[facility] [address] [place], [address] IMMUNOGLOB M QN 48 mg/dL Normal 20-172 [facility] Comment on above: Order Comment: N Performed By: #### L 3400.8000, L3410.2350, L3300.1200, L3600.4030, L3100.3425, L501.6710, L101.9900 ####[facility] [address] [place], [address] M-Herb Not Observed Normal Not Observed [facility] Comment on above: Order Comment: N Performed By: #### L 3400.8000, L3410.2350, L3300.1200, L3600.4030, L3100.3425, L501.6710, L101.9900 ####[facility] [address] [place], [address] NOTE: Comment Normal . [facility] Comment on above: Order Comment: N Result Comment: Prot ein electrophoresis scan will follow via computer,mail, or enterprise software engineer delivery. Performed By: #### L 3400.8000, L3410.2350, L3300.1200, L3600.4030, L3100.3425, L501.6710, L101.9900 ####[facility] [address] [place], [address] Protein [Mass/Vol] 4.1 g/dL Low 6.0-8.5 [facility] Comment on above: Order Comment: N Performed By: #### L 3400.8000, L3410.2350, L3300.1200, L3600.4030, L3100.3425, L501.6710, L101.9900 ####[facility] [address] [place], [address] Immunofixation Urineon 07-07 HELENA Urine Comment Normal . [facility] Comment on above: Result Comment: No m onoclonality detected.Performed at: [address] [id number] Director: Agustin Arredondo PhD, Phone: [phone] Performed By: #### L 3400.8000, L3410.2350, L3300.1200, L3600.4030, L3100.3425, L501.6710, L101.9900 ####[facility] [address] [place], [place], [phone] Quantiferon TB-Gold+on 07-07 QFT MITOGEN JENIFER 2.42 IU/mL Normal . [facility] Comment on above: Performed By: #### L 3400.8000, L3410.2350, L3300.1200, L3600.4030, L3100.3425, L501.6710, L101.9900 ####[facility] [address] [place], [address] QFT NIL VALUE 0.04 IU/mL Normal . [facility] Comment on above: Performed By: #### L 3400.8000, L3410.2350, L3300.1200, L3600.4030, L3100.3425, L501.6710, L101.9900 ####[facility] [address] [place], [address] QFT TB GOLD+ Comment Normal . [facility] Comment on above: Result Comment: Amari [...] 3400.8000, L3410.2350, L3300.1200, L3600.4030, L3100.3425, L501.6710, L101.9900 ####[facility] [address] [place], [address] QFT TB POS CRIT Negative Normal Negative [facility] Comment on above: Result Comment: No [...] 3400.8000, L3410.2350, L3300.1200, L3600.4030, L3100.3425, L501.6710, L101.9900 ####[facility] [address] [place], [address] QFT TB1+ AG JENIFER 0.04 IU/mL Normal . [facility] Comment on above: Performed By: #### L 3400.8000, L3410.2350, L3300.1200, L3600.4030, L3100.3425, L501.6710, L101.9900 ####[facility] [address] [place], [address] QFT TB2+ AG JENIFER 0.03 IU/mL Normal . [facility] Comment on above: Performed By: #### L 3400.8000, L3410.2350, L3300.1200, L3600.4030, L3100.3425, L501.6710, L101.9900 ####[facility] [address] [place], [address] Anion gap in Serum or Plasma Ordered By: Chris Aragon on 07-06-2024 Anion gap [Moles/Vol] 6 mmol/L 06-22 [facility] BUN/creatinine ratioOrdered By: Chris Aragon on 07-06-2024 Urea nitrogen/Creatinine [Mass ratio] 14.9 mg/mg - [facility] Basic Metabolic Profile (BMP )on 07-06-2024 BUN/CRE 14.9 RATIO Normal 10-20 [facility] Comment on above: Performed By: #### L 500.2500, L100.0500 ####[facility] [address] [place], [address] Calcium [Mass/Vol] 7.8 mg/dL Normal 7.6-11.0 [facility] Comment on above: Performed By: #### L 500.2500, L100.0500 ####[facility] [address] [place], [address] Chloride [Moles/Vol] 102 mmol/L Normal 98-108 [facility] Comment on above: Performed By: #### L 500.2500, L100.0500 ####[facility] [address] [place], [address] CO2 [Moles/Vol] 26.4 mmol/L Normal 21.0-32.0 [facility] Comment on above: Performed By: #### L 500.2500, L100.0500 ####[facility] [address] [place], [address] Creatinine [Mass/Vol] 1.49 mg/dL High 0.70-1.20 [facility] Comment on above: Performed By: #### L 500.2500, L100.0500 ####[facility] [address] [place], [address] ECRCL 48.90 ml/min Low 50-250 [facility] Comment on above: Performed By: #### L 500.2500, L100.0500 ####[facility] [address] [place], [address] GAP 6 Normal 5-15 [facility] Comment on above: Performed By: #### L 500.2500, L100.0500 ####[facility] [address] [place], [address] GFR/1.73 sq M.predicted among non-blacks MDRD (S/P/Bld) [Vol rate/Area] 53 mL/min/{1.73_m2} Low >60 [facility] Comment on above: Result Comment: mL/m in/1.73m2 CKD-EPI Creatinine Equation (2020) Performed By: #### L 500.2500, L100.0500 ####[facility] [address] [place], [address] Glucose [Mass/Vol] 145 mg/dL High 70-99 [facility] Comment on above: Performed By: #### L 500.2500, L100.0500 ####[facility] [address] [place], [address] Potassium [Moles/Vol] 5.1 mmol/L Normal 3.3-5.1 [facility] Comment on above: Performed By: #### L 500.2500, L100.0500 ####[facility] [address] [place], [address] Sodium [Moles/Vol] 135 mmol/L Normal 133-145 [facility] Comment on above: Performed By: #### L 500.2500, L100.0500 ####[facility] [address] [place], [address] Urea nitrogen [Mass/Vol] 22 mg/dL High 4-19 [facility] Comment on above: Performed By: #### L 500.2500, L100.0500 ####[facility] [address] [place], [address] Bedside Glucoseon 07-06-2024 FINGERSTICK GLU 213 mg/dL High 74-106 [facility] Comment on above: Result Comment: DAYANARA MORENO OF PATIENT CARE PER NURSING PROTOCOL Performed By: #### L 501.080 ####[facility] [address] [place], [address] CBC-Complete Blood Cnt No Di ffon 07-06-2024 Erythrocyte distribution width (RBC) [Ratio] 17.2 % High 11.6-14.6 [facility] Comment on above: Performed By: #### L 500.2500, L100.0500 ####[facility] [address] [place], [address] Hematocrit (Bld) [Volume fraction] 25.1 % Low 40-54 [facility] Comment on above: Performed By: #### L 500.2500, L100.0500 ####[facility] [address] [place], [address] Hemoglobin (Bld) [Mass/Vol] 8.3 g/dL Low 13.0-16.5 [facility] Comment on above: Performed By: #### L 500.2500, L100.0500 ####[facility] [address] [place], [address] MCH (RBC) [Entitic mass] 36.2 pg High 27.0-32.0 [facility] Comment on above: Performed By: #### L 500.2500, L100.0500 ####[facility] [address] [place], [address] MCHC (RBC) [Mass/Vol] 33.1 g/dL Normal 32-36 [facility] Comment on above: Performed By: #### L 500.2500, L100.0500 ####[facility] [address] [place], [address] MCV (RBC) [Entitic vol] 109.6 fL High 80-[address] [facility] Comment on above: Performed By: #### L 500.2500, L100.0500 ####[facility] [address] [place], [address] Platelet mean volume (Bld) [Entitic vol] 11.2 fL Normal 6.2-12.0 [facility] Comment on above: Performed By: #### L 500.2500, L100.0500 ####[facility] [address] [place], [address] Platelets (Bld) [#/Vol] 127 10*3/uL Low 150-450 [facility] Comment on above: Performed By: #### L 500.2500, L100.0500 ####[facility] [address] [place], [address] RBC (Bld) [#/Vol] 2.29 10*6/uL Low 4.6-6.2 [facility] Comment on above: Performed By: #### L 500.2500, L100.0500 ####[facility] [address] [place], [address] RDW SD 68.8 fl High 35.1-43.9 [facility] Comment on above: Performed By: #### L 500.2500, L100.0500 ####[facility] [address] [place], [address] WBC (Bld) [#/Vol] 3.9 10*3/uL Low 4.4-11.0 [facility] Comment on above: Performed By: #### L 500.2500, L100.0500 ####[facility] [address] [place], [address] Carbon dioxide, total [Moles /volume] in Central venous bloodOrdered By: Chris Aragon on 07-06-2024 CO2 [Moles/Vol] 26.4 mmol/L 21.0-32.0 [facility] Chloride assayOrdered By: Golden Aragon on 07-06-2024 Chloride [Moles/Vol] 102 mmol/L 98-108 [facility] Discharge Instructionon 05 Discharge Instruction Normal [facility] Erythrocyte distribution wid th ratioOrdered By: Chris Aragon on 07-06-2024 Erythrocyte distribution width (RBC) [Ratio] 17.2 % High 11.6-14.6 [facility] Erythrocyte distribution wid th standard deviationOrdered By: Chris Aragon on 07-06-2024 Erythrocyte distribution width (RBC) [Ratio] 68.8 fl High 35.1-43.9 [facility] Glomerular filtration rate ( GFR) estimation/1.73 sq m using serum, plasma, or whole bOrdered By: Chris Aragon on 07-06-2024 GFR/1.73 sq M.predicted among non-blacks MDRD (S/P/Bld) [Vol rate/Area] 53 mL/min/{1.73_m2} Low >60 [facility] Glucose measurement at [facility] deOrdered By: Chris Aragon on 07-06-2024 Glucose [Mass/Vol] 213 mg/dL High 74-106 [facility] Hematocrit Auto (Bld) [Volum e fraction]Ordered By: Chris Aragon on 07-06-2024 Hematocrit (Bld) [Volume fraction] 25.1 % Low 40-54 [facility] Hemoglobin measurementOrdere d By: Chris Aragon on 07-06-2024 Hemoglobin (Bld) [Mass/Vol] 8.3 g/dL Low 13.0-16.5 [facility] MCV (mean corpuscular volume ) determinationOrdered By: Chris Aragon on 07-06-2024 MCV (RBC) [Entitic vol] 109.6 fL High 80-[address] [facility] Mean corpuscular hemoglobin (MCH) determinationOrdered By: Chris Araogn on 07-06-2024 MCH (RBC) [Entitic mass] 36.2 pg High 27.0-32.0 [facility] Platelet countOrdered By: Golden Aragon on 07-06-2024 Platelets (Bld) [#/Vol] 127 10*3/uL Low 150-450 [facility] Potassium measurement (mass/ volume)Ordered By: Chris Aragon on 07-06-2024 Potassium (Unsp spec) [Mass/Vol] 5.1 mmol/L 3.3-5.1 [facility] RBC Auto (Bld) [#/Vol]Ordere d By: Chris Aragon on 07-06-2024 RBC (Bld) [#/Vol] 2.29 10*6/uL Low 4.6-6.2 [facility] Serum creatinine measurement (mass/volume)Ordered By: Chris Aragon on 07-06-2024 Creatinine [Mass/Vol] 1.49 mg/dL High 0.70-1.20 [facility] Serum glucose measurement (m ass/volume)Ordered By: Chris Aragon on 07-06-2024 Glucose [Mass/Vol] 145 mg/dL High 70-99 [facility] Serum or plasma calcium luciana urement (mass/volume)Ordered By: Chris Aragon on 07-06-2024 Calcium [Mass/Vol] 7.8 mg/dL 7.6-11.0 [facility] Serum or plasma urea nitroge n measurement (mass/volume)Ordered By: Chris Aragon on 07-06-2024 Urea nitrogen [Mass/Vol] 22 mg/dL High 4-19 [facility] Sodium levelOrdered By: Curly Aragon on 07-06-2024 Sodium [Moles/Vol] 135 mmol/L 133-145 [facility] White blood cell (WBC) count Ordered By: Chris Aragon on 07-06-2024 WBC (Bld) [#/Vol] 3.9 10*3/uL Low 4.4-11.0 [facility] GARETT Comprehensive Panelon ANTI-DNA (DS)AB <1 Normal 0-9 [facility] Comment on above: Result Comment: Nega tive <5 Equivocal 5 - 9 Positive >9 Performed By: #### L 3100.5440 ####[facility] [address] [place], [place], [id number] ANTI-SS-A < 0.2 Normal 0.0-0.9 [facility] Comment on above: Performed By: #### L 3100.5440 ####[facility] [address] [place], [place], [address] ANTI-SS-B < 0.2 Normal 0.0-0.9 [facility] Comment on above: Performed By: #### L 3100.5440 ####[facility] [address] [place], [place], [address] Anti-Mitochondrial ABon 05-2 ANTIMITOCHON AB <20.0 Normal 0.0-20.0 [facility] Comment on above: Result Comment: Nega tive 0.0 - 20.0 Equivocal 20.1 - 24.9 Positive >24.9Mitochondrial (M2) Antibodies are found in 90-96% ofpatients with primary biliary cirrhosis.Performed at: [facility] [id number] Director: Agustin Arredondo PhD, Phone: [phone] Performed By: #### L 807.2200, L758.1288 ####[facility] [address] [facility] [id number] Anti-Smooth Muscle ABSon ANTISMOOTH MUSC 2 Units Normal 0-19 [facility] Comment on above: Result Comment: Nega tive 0 - 19 Weak positive 20 - 30 Moderate to strong positive >30 Actin Antibodies are found in 52-85% of patients with autoimmune hepatitis or chronic active hepatitis and in 22% of patients with primary biliary cirrhosis.Performed at: zhi[facility] [id number] Director: Agustin Arredondo PhD, Phone: [phone] Performed By: #### L 804.2200, L655.8270 ####[facility] [address] [facility] [id number] Basic Metabolic Profile (BMP )on 07-05-2024 BUN/CRE 13.5 RATIO Normal 10-20 [facility] Comment on above: Performed By: #### L 500.2500 ####[facility] [address] [place], [place], [address] Calcium [Mass/Vol] 7.9 mg/dL Normal 7.6-11.0 [facility] Comment on above: Performed By: #### L 500.2500 ####[facility] [address] [facility] [address] Chloride [Moles/Vol] 96 mmol/L Low 98-108 [facility] Comment on above: Performed By: #### L 500.2500 ####[facility] [address] [place], [address] CO2 [Moles/Vol] 28.7 mmol/L Normal 21.0-32.0 [facility] Comment on above: Performed By: #### L 500.2500 ####[facility] [address] [place], [address] Creatinine [Mass/Vol] 1.70 mg/dL High 0.70-1.20 [facility] Comment on above: Performed By: #### L 500.2500 ####[facility] [address] [place], [address] ECRCL 44.02 ml/min Low 50-250 [facility] Comment on above: Performed By: #### L 500.2500 ####[facility] [address] [place], [address] GAP 7 Normal 5-15 [facility] Comment on above: Performed By: #### L 500.2500 ####[facility] [address] [place], [address] GFR/1.73 sq M.predicted among non-blacks MDRD (S/P/Bld) [Vol rate/Area] 45 mL/min/{1.73_m2} Low >60 [facility] Comment on above: Result Comment: mL/m in/1.73m2 CKD-EPI Creatinine Equation (2020) Performed By: #### L 500.2500 ####[facility] [address] [place], [address] Glucose [Mass/Vol] 136 mg/dL High 70-99 [facility] Comment on above: Performed By: #### L 500.2500 ####[facility] [address] [place], [address] Potassium [Moles/Vol] 5.1 mmol/L Normal 3.3-5.1 [facility] Comment on above: Performed By: #### L 500.2500 ####[facility] [address] [place], [address] Sodium [Moles/Vol] 132 mmol/L Low 133-145 [facility] Comment on above: Performed By: #### L 500.2500 ####[facility] [address] [place], [address] Urea nitrogen [Mass/Vol] 23 mg/dL High 4-19 [facility] Comment on above: Performed By: #### L 500.2500 ####[facility] [address] [place], [address] Bedside Glucoseon 07-05-2024 FINGERSTICK GLU 108 mg/dL High 74-106 [facility] Comment on above: Result Comment: DAYANARA GEMENT OF PATIENT CARE PER NURSING PROTOCOL Performed By: #### L 501.080 ####[facility] [address] [place], [address] FINGERSTICK GLU 181 mg/dL High 74-106 [facility] Comment on above: Result Comment: DAYANARA GEMENT OF PATIENT CARE PER NURSING PROTOCOL Performed By: #### L 501.080 ####[facility] [address] [place], [address] FINGERSTICK GLU 147 mg/dL High 74-106 [facility] Comment on above: Result Comment: DAYANARA GEMENT OF PATIENT CARE PER NURSING PROTOCOL Performed By: #### L 501.080 ####[facility] [address] [place], [address] FINGERSTICK GLU 210 mg/dL High 74-106 [facility] Comment on above: Result Comment: DAYANARA GEMENT OF PATIENT CARE PER NURSING PROTOCOL Performed By: #### L 501.080 ####[facility] [address] [place], [address] CBC-Complete Blood Cnt No Di ffon 07-05-2024 Erythrocyte distribution width (RBC) [Ratio] 16.7 % High 11.6-14.6 [facility] Comment on above: Performed By: #### L 100.0500 ####[facility] [address] [place], [address] Hematocrit (Bld) [Volume fraction] 26.7 % Low 40-54 [facility] Comment on above: Performed By: #### L 100.0500 ####[facility] [address] [place], [address] Hemoglobin (Bld) [Mass/Vol] 8.9 g/dL Low 13.0-16.5 [facility] Comment on above: Performed By: #### L 100.0500 ####[facility] [address] [place], [address] MCH (RBC) [Entitic mass] 36.2 pg High 27.0-32.0 [facility] Comment on above: Performed By: #### L 100.0500 ####[facility] [address] [place], [address] MCHC (RBC) [Mass/Vol] 33.3 g/dL Normal 32-36 [facility] Comment on above: Performed By: #### L 100.0500 ####[facility] [address] [place], [address] MCV (RBC) [Entitic vol] 108.5 fL High 80-[address] [facility] Comment on above: Performed By: #### L 100.0500 ####[facility] [address] [place], [address] Platelet mean volume (Bld) [Entitic vol] 11.2 fL Normal 6.2-12.0 [facility] Comment on above: Performed By: #### L 100.0500 ####[facility] [address] [place], [address] Platelets (Bld) [#/Vol] 141 10*3/uL Low 150-450 [facility] Comment on above: Performed By: #### L 100.0500 ####[facility] [address] [place], [address] RBC (Bld) [#/Vol] 2.46 10*6/uL Low 4.6-6.2 [facility] Comment on above: Performed By: #### L 100.0500 ####[facility] [address] [place], [address] RDW SD 66.9 fl High 35.1-43.9 [facility] Comment on above: Performed By: #### L 100.0500 ####[facility] [address] [place], [address] WBC (Bld) [#/Vol] 5.3 10*3/uL Normal 4.4-11.0 [facility] Comment on above: Performed By: #### L 100.0500 ####[facility] [address] [place], [address] Calprotectin, Stoolon [address] 91 ug/g Normal 0-120 [facility] Comment on above: Result Comment: Conc entration Interpretation Follow-Up< 5 - 50 ug/g Normal None>50 -120 ug/g Borderline Re-evaluate in 4-6 weeks >120 ug/g Abnormal Repeat as clinically indicatedPerformed at: [facility] [address] [id number] Director: Karson Lux MD, Phone: [phone] Performed By: #### L 7000.0700, L7400.3300, L3138.9993 ####[facility] [address] [place], [place], [address] Giardia Lamblia, Stool EIAon 07-05-2024 Giardia Stool Negative Normal Negative [facility] Comment on above: Result Comment: Perf ormed at: [facility] [place], [place] [id number] Director: Agustin Arredondo PhD, Phone: [phone] Performed By: #### L 7000.0700, L7400.3300, L3410.9994 ####[facility] [address] [place], [place], [address] L3410.9994on 07-05-2024 [facility] Misc. 2 COMMENT Normal . [facility] Comment on above: Order Comment: STOOL [id number] for alpha-1 antitrypsin Result Comment: Perf ormed at: [facility] [id number] Director: Agustin Arredondo PhD, Phone: [phone] Performed By: #### L 7000.0700, L7400.3300, L3410.9994 ####[facility] [address] [place], [place], [id number] Activated partial thrombopla stin time (aPTT) in platelet poor plasma by coagulation aOrdered By: Antony Espitia on 07-04-2024 aPTT Coag (PPP) [Time] 28.2 s 24.1-36.2 [facility] Albumin Elph [Mass/Vol]Order ed By: Antony Espitia on 07-04-2024 Albumin [Mass/Vol] 2.1 g/dL Low 2.9-4.4 [facility] Bedside Glucoseon 07-04-2024 FINGERSTICK GLU 184 mg/dL High 74-106 [facility] Comment on above: Result Comment: DAYANARA MORENO OF PATIENT CARE PER NURSING PROTOCOL Performed By: #### L 501.080 ####[facility] [address] [place], [place], [address] FINGERSTICK GLU 319 mg/dL High 74-106 [facility] Comment on above: Result Comment: DAYANARA GEMENT OF PATIENT CARE PER NURSING PROTOCOL Performed By: #### L 501.080 ####[facility] [address] [place], [address] FINGERSTICK GLU 113 mg/dL High 74-106 [facility] Comment on above: Result Comment: DAYANARA GEMENT OF PATIENT CARE PER NURSING PROTOCOL Performed By: #### L 501.080 ####[facility] [address] [place], [address] FINGERSTICK GLU 119 mg/dL High 74-106 [facility] Comment on above: Result Comment: DAYANARA GEMENT OF PATIENT CARE PER NURSING PROTOCOL Performed By: #### L 501.080 ####[facility] [address] [place], [address] Consultation - Cardiologyon 07-04-2024 Consultation - Cardiology Normal [facility] Interpretation of serum or p lasma protein pattern by immunofixation (narrative resultOrdered By: Antony Espitia on 07-04-2024 Protein Fractions Immunofixation Jose Carlos [Interp] Not Observed g/dL Not Observed [facility] No Panel InformationOrdered By: Antony Espitia on 07-04-2024 Addendum Document Comment . [facility] <2 U/mL 0-5 [facility] [employer] 8623on OP Normal [facility] Comment on above: Performed By: #### L 501.9985, L503.6005, L505.5000, M600.5000, L501.5200 ####[facility] [address] [place], [address] Partial Thromboplast Timeon 07-04-2024 aPTT Coag (Bld) [Time] 28.2 s Normal 24.1-36.2 [facility] Comment on above: Performed By: #### L 300.3900, L300.4310 ####[facility] [address] [place], [address] Prothrombin Time w/INRon INR Coag (PPP) [Relative time] 1.2 {INR} Normal [facility] Comment on above: Performed By: #### L 300.3900, L300.4310 ####[facility] [address] [place], [address] PT Coag (PPP) [Time] 15.2 s High 11.7-14.9 [facility] Comment on above: Performed By: #### L 300.3900, L300.4310 ####[facility] [address] [place], [address] Prothrombin timeOrdered By: Antony Espitia on 07-04-2024 PT Coag (PPP) [Time] 15.2 s High 11.7-14.9 [facility] Qualitative QuantiFERON-TB g old in tube testOrdered By: Antony Espitia on 07-04-2024 M. tuberculosis tuberculin stim IFN-g Ql (Bld) 0.04 IU/mL . [facility] Serum DNA double strand anti body assay (units/volume)Ordered By: Antony Espitia on 07-04-2024 DNA double strand Ab Qn (S) [IU]/mL 0-9 [facility] Serum Scl-70 antibody assay (units/volume)Ordered By: Antony Espitia on 07-04-2024 SCL-70 extractable nuclear Ab Qn (S) <0.2 AI 0.0-0.9 [facility] Serum classic neutrophil cyt oplasmic antibody assay (units/volume)Ordered By: Antony Espitia on 07-04-2024 Neutrophil cytoplasmic Ab.classic Qn (S) <1:20 titer Neg:<1:20 [facility] Serum globulin measurement ( mass/volume)Ordered By: Antony Espitia on 07-04-2024 Globulin (S) [Mass/Vol] 2.0 g/dL Low 2.2-3.[address] [facility] Serum mitochondria antibody detectionOrdered By: Antony Espitia on 07-04-2024 Mitochondria Ab Ql (S) <20.0 Units 0.0-20.[address] [facility] Serum or plasma IgA measurem ent (mass/volume)Ordered By: Antony Espitia on 07-04-2024 IgA [Mass/Vol] 318 mg/dL 61-437 [facility] Serum or plasma IgG measurem ent (mass/volume)Ordered By: Antony Espitia on 07-04-2024 IgG [Mass/Vol] 839 mg/dL 603-1613 [facility] Serum or plasma actin IgG an tibody assay (units/volume)Ordered By: Antony Espitia on 07-04-2024 Actin IgG Qn 2 Units 0-19 [facility] Serum or plasma alpha 1 glob ulin measurement by electrophoresis (mass/volume)Ordered By: Antony Espitia on 07-04-2024 Alpha 1 globulin Elph [Mass/Vol] 0.2 g/dL 0.0-0.4 [facility] Alpha 1 globulin Elph [Mass/Vol] 0.4 g/dL 0.4-1.0 [facility] Serum or plasma beta globuli n measurement by electrophoresis (mass/volume)Ordered By: Antony Espitia on 07-04-2024 Beta globulin Elph [Mass/Vol] 0.7 g/dL 0.7-1.3 [facility] Serum or plasma gamma globul in measurement by electrophoresis (mass/volume)Ordered By: Antony Espitia on 07-04-2024 Gamma globulin Elph [Mass/Vol] 0.7 g/dL 0.4-1.8 [facility] Serum or plasma immunoelectr ophoresis interpretation (nominal result)Ordered By: Antony Espitia on 07-04-2024 Interpretation IEP [Interp] Comment . [facility] Serum or plasma protein luciana urement (mass/volume)Ordered By: Antony Espitia on 07-04-2024 Protein [Mass/Vol] 4.1 g/dL Low 6.0-8.5 [facility] Serum perinuclear neutrophil cytoplasmic antibody titer by immunofluorescenceOrdered By: Antony Espitia on 07-04-2024 Neutrophil cytoplasmic Ab.perinuclear IF (S) [Titer] <1:20 titer Neg:<1:20 [facility] Serum tissue transglutaminas e (tTG) IgA antibody assay (units/volume)Ordered By: Antony Espitia on 07-04-2024 tTG IgA Qn (S) <2 U/mL 0-3 [facility] Basic Metabolic Profile (BMP )on 07-03-2024 BUN/CRE 13.1 RATIO Normal 10-20 [facility] Comment on above: Performed By: #### L 500.2500, L501.5200, L100.0500, L501.2300 ####[facility] [address] [place], [address] Calcium [Mass/Vol] 7.4 mg/dL Low 7.6-11.0 [facility] Comment on above: Performed By: #### L 500.2500, L501.5200, L100.0500, L501.2300 ####[facility] [address] [place], [address] Chloride [Moles/Vol] 103 mmol/L Normal 98-108 [facility] Comment on above: Performed By: #### L 500.2500, L501.5200, L100.0500, L501.2300 ####[facility] [address] [place], [address] CO2 [Moles/Vol] 28.0 mmol/L Normal 21.0-32.0 [facility] Comment on above: Performed By: #### L 500.2500, L501.5200, L100.0500, L501.2300 ####[facility] [address] [place], [address] Creatinine [Mass/Vol] 1.15 mg/dL Normal 0.70-1.20 [facility] Comment on above: Performed By: #### L 500.2500, L501.5200, L100.0500, L501.2300 ####[facility] [address] [place], [address] ECRCL 68.03 ml/min Normal 50-250 [facility] Comment on above: Performed By: #### L 500.2500, L501.5200, L100.0500, L501.2300 ####[facility] [address] [place], [address] GAP 6 Normal 5-15 [facility] Comment on above: Performed By: #### L 500.2500, L501.5200, L100.0500, L501.2300 ####[facility] [address] [place], [address] GFR/1.73 sq M.predicted among non-blacks MDRD (S/P/Bld) [Vol rate/Area] 72 mL/min/{1.73_m2} Normal >60 [facility] Comment on above: Result Comment: mL/m in/1.73m2 CKD-EPI Creatinine Equation (2020) Performed By: #### L 500.2500, L501.5200, L100.0500, L501.2300 ####[facility] [address] [place], [address] Glucose [Mass/Vol] 54 mg/dL Low 70-99 [facility] Comment on above: Performed By: #### L 500.2500, L501.5200, L100.0500, L501.2300 ####[facility] [address] [place], [address] Potassium [Moles/Vol] 4.0 mmol/L Normal 3.3-5.1 [facility] Comment on above: Performed By: #### L 500.2500, L501.5200, L100.0500, L501.2300 ####[facility] [address] [place], [address] Sodium [Moles/Vol] 137 mmol/L Normal 133-145 [facility] Comment on above: Performed By: #### L 500.2500, L501.5200, L100.0500, L501.2300 ####[facility] [address] [place], [address] Urea nitrogen [Mass/Vol] 15 mg/dL Normal 4-19 [facility] Comment on above: Performed By: #### L 500.2500, L501.5200, L100.0500, L501.2300 ####[facility] [address] [place], [address] Bedside Glucoseon 07-03-2024 FINGERSTICK GLU 174 mg/dL High 74-106 [facility] Comment on above: Result Comment: DAYANARA GEMENT OF PATIENT CARE PER NURSING PROTOCOL Performed By: #### L 501.080 ####[facility] [address] [place], [address] FINGERSTICK GLU 170 mg/dL High 74-106 [facility] Comment on above: Result Comment: DAYANARA GEMENT OF PATIENT CARE PER NURSING PROTOCOL Performed By: #### L 501.080 ####[facility] [address] [place], [address] FINGERSTICK GLU 120 mg/dL High 74-106 [facility] Comment on above: Result Comment: DAYANARA GEMENT OF PATIENT CARE PER NURSING PROTOCOL Performed By: #### L 501.080 ####[facility] [address] [place], [address] FINGERSTICK GLU 128 mg/dL High 74-106 [facility] Comment on above: Result Comment: DAYANAAR GEMENT OF PATIENT CARE PER NURSING PROTOCOL Performed By: #### L 501.080 ####[facility] [address] [place], [address] CBC-Complete Blood Cnt No Di ffon 07-03-2024 Erythrocyte distribution width (RBC) [Ratio] 16.9 % High 11.6-14.6 [facility] Comment on above: Performed By: #### L 500.2500, L501.5200, L100.0500, L501.2300 ####[facility] [address] [place], [address] Hematocrit (Bld) [Volume fraction] 24.2 % Low 40-54 [facility] Comment on above: Performed By: #### L 500.2500, L501.5200, L100.0500, L501.2300 ####[facility] [address] [place], [address] Hemoglobin (Bld) [Mass/Vol] 8.0 g/dL Low 13.0-16.5 [facility] Comment on above: Performed By: #### L 500.2500, L501.5200, L100.0500, L501.2300 ####[facility] [address] [place], [address] MCH (RBC) [Entitic mass] 35.9 pg High 27.0-32.0 [facility] Comment on above: Performed By: #### L 500.2500, L501.5200, L100.0500, L501.2300 ####[facility] [address] [place], [address] MCHC (RBC) [Mass/Vol] 33.1 g/dL Normal 32-36 [facility] Comment on above: Performed By: #### L 500.2500, L501.5200, L100.0500, L501.2300 ####[facility] [address] [place], [address] MCV (RBC) [Entitic vol] 108.5 fL High 80-[address] [facility] Comment on above: Performed By: #### L 500.2500, L501.5200, L100.0500, L501.2300 ####[facility] [address] [place], [address] Platelet mean volume (Bld) [Entitic vol] 10.8 fL Normal 6.2-12.0 [facility] Comment on above: Performed By: #### L 500.2500, L501.5200, L100.0500, L501.2300 ####[facility] [address] [place], [address] Platelets (Bld) [#/Vol] 107 10*3/uL Low 150-450 [facility] Comment on above: Performed By: #### L 500.2500, L501.5200, L100.0500, L501.2300 ####[facility] [address] [place], [address] RBC (Bld) [#/Vol] 2.23 10*6/uL Low 4.6-6.2 [facility] Comment on above: Performed By: #### L 500.2500, L501.5200, L100.0500, L501.2300 ####[facility] [address] [place], [address] RDW SD 66.8 fl High 35.1-43.9 [facility] Comment on above: Performed By: #### L 500.2500, L501.5200, L100.0500, L501.2300 ####[facility] [address] [place], [address] WBC (Bld) [#/Vol] 4.3 10*3/uL Low 4.4-11.0 [facility] Comment on above: Performed By: #### L 500.2500, L501.5200, L100.0500, L501.2300 ####[facility] [address] [place], [address] CRPon 07-03-2024 C-REACTIVE PROT < 3.00 Normal 0.0-3.0 [facility] Comment on above: Performed By: #### L 3400.8000, L3410.2350, L3300.1200, L3600.4030, L3100.3425, L501.6710, L101.9900 ####[facility] [address] [place], [place], [address] Calprotectin stoolOrdered By : Antony Espitia on 07-03-2024 Calprotectin stool 91 ug/g 0-120 [facility] Echocardiogram study reportO rdered By: Yaneli Carbone on 07-03-2024 Study report [facility] Work Phone: Erythrocyte Sed Rateon 07-03 SED RATE < 1 Normal 0-20 [facility] Comment on above: Performed By: #### L 3400.8000, L3410.2350, L3300.1200, L3600.4030, L3100.3425, L501.6710, L101.9900 ####[facility] [address] [place], [address] Erythrocyte sedimentation ra teOrdered By: Antony Espitia on 07-03-2024 ESR (Bld) [Velocity] mm/h 0-20 [facility] Giardia lamblia ag stool EIA Ordered By: Antony Espitia on 07-03-2024 G. lamblia Ag IA Ql (Stl) Negative Negative [facility] HIVon 07-03-2024 HIV Non-Reactive Normal Nonreactive [facility] Comment on above: Result Comment: Non- ReactiveReactiveRepeatedly reactive samples must be confirmed according [facility] recommended confirmatory algorithms. The subresults foreither HIVAG or AHIV can be used as an aid in the selectionof the confirmation algorithm for reactive samples.Send out specimens with Reactive results to [facility] forconfirmation.Order the HIV antibody detection and differentiation:lc#[id number] Performed By: #### L 3890.6006 ####[facility] [address] [place], [place], [id number] LDHon 07-03-2024 LDH 415 U/L High 87-241 [facility] Comment on above: Performed By: #### L 504.2610 ####[facility] [address] [place], [address] MR/CON.PCM.GIon 07-03-2024 MR/CON.PCM.GI Normal [facility] Magnesiumon 07-03-2024 Magnesium [Mass/Vol] 1.8 mg/dL Normal 1.5-2.2 [facility] Comment on above: Performed By: #### L 500.2500, L501.5200, L100.0500, L501.2300 ####[facility] [address] [place], [address] Magnesium measurement (mass/ volume)Ordered By: Melonie De La Rosa on 07-03-2024 Magnesium (Unsp spec) [Mass/Vol] 1.8 mg/dL 1.5-2.2 [facility] No Panel InformationOrdered By: Antony Espitia on 07-03-2024 Non-Reactive Nonreactive [facility] Phosphoruson 07-03-2024 Phosphate [Mass/Vol] 3.2 mg/dL Normal 2.7-4.5 [facility] Comment on above: Performed By: #### L 500.2500, L501.5200, L100.0500, L501.2300 ####[facility] [address] [place], [address] Serum or plasma C reactive p rotein measurement (mass/volume)Ordered By: Antony Espitia on 07-03-2024 CRP [Mass/Vol] mg/L 0.0-3.0 [facility] Bedside Glucoseon 07-02-2024 FINGERSTICK GLU 218 mg/dL High 74-106 [facility] Comment on above: Result Comment: DAYANARA GEMENT OF PATIENT CARE PER NURSING PROTOCOL Performed By: #### L 501.080 ####[facility] [address] [place], [address] FINGERSTICK GLU 174 mg/dL High 74-106 [facility] Comment on above: Result Comment: DAYANARA GEMENT OF PATIENT CARE PER NURSING PROTOCOL Performed By: #### L 501.080 ####[facility] [address] [place], [address] FINGERSTICK GLU 107 mg/dL High 74-106 [facility] Comment on above: Result Comment: DAYANARA GEMENT OF PATIENT CARE PER NURSING PROTOCOL Performed By: #### L 501.080 ####[facility] [address] [place], [address] FINGERSTICK GLU 66 mg/dL Low 74-106 [facility] Comment on above: Result Comment: DAYANARA GEMENT OF PATIENT CARE PER NURSING PROTOCOL Performed By: #### L 501.080 ####[facility] [address] [place], [address] FINGERSTICK GLU 116 mg/dL High 74-106 [facility] Comment on above: Result Comment: DAYANARA GEMENT OF PATIENT CARE PER NURSING PROTOCOL Performed By: #### L 501.080 ####[facility] [address] [place], [address] Bilirubin, totalOrdered By: Melonie De La Rosa on 07-02-2024 Bilirubin [Mass/Vol] 0.29 mg/dL 0.00-1.30 [facility] Blood manual differential co mment interpretation (narrative result)Ordered By: Melonie De La Rosa on 07-02-2024 Manual differential comment Jose Carlos (Bld) [Interp] See comment [facility] CBC-Complete Blood Cnt No Di ffon 07-02-2024 Erythrocyte distribution width (RBC) [Ratio] 16.7 % High 11.6-14.6 [facility] Comment on above: Performed By: #### L 100.4500, L100.0500 ####[facility] [address] [place], [address] Hematocrit (Bld) [Volume fraction] 22.5 % Low 40-54 [facility] Comment on above: Performed By: #### L 100.4500, L100.0500 ####[facility] [address] [place], [address] Hemoglobin (Bld) [Mass/Vol] 7.5 g/dL Low 13.0-16.5 [facility] Comment on above: Performed By: #### L 100.4500, L100.0500 ####[facility] [address] [place], [address] MCH (RBC) [Entitic mass] 36.4 pg High 27.0-32.0 [facility] Comment on above: Performed By: #### L 100.4500, L100.0500 ####[facility] [address] [place], [address] MCHC (RBC) [Mass/Vol] 33.3 g/dL Normal 32-36 [facility] Comment on above: Performed By: #### L 100.4500, L100.0500 ####[facility] [address] [place], [address] MCV (RBC) [Entitic vol] 109.2 fL High 80-[address] [facility] Comment on above: Performed By: #### L 100.4500, L100.0500 ####[facility] [address] [place], [address] Platelet mean volume (Bld) [Entitic vol] 12.5 fL High 6.2-12.0 [facility] Comment on above: Performed By: #### L 100.4500, L100.0500 ####[facility] [address] [place], [address] Platelets (Bld) [#/Vol] 132 10*3/uL Low 150-450 [facility] Comment on above: Performed By: #### L 100.4500, L100.0500 ####[facility] [address] [place], [address] RBC (Bld) [#/Vol] 2.06 10*6/uL Low 4.6-6.2 [facility] Comment on above: Performed By: #### L 100.4500, L100.0500 ####[facility] [address] [place], [address] RDW SD 67.2 fl High 35.1-43.9 [facility] Comment on above: Performed By: #### L 100.4500, L100.0500 ####[facility] [address] [place], [address] WBC (Bld) [#/Vol] 4.0 10*3/uL Low 4.4-11.0 [facility] Comment on above: Performed By: #### L 100.4500, L100.0500 ####[facility] [address] [place], [address] Comprehensive Metabolic Prof ilon 07-02-2024 Albumin [Mass/Vol] 2.3 g/dL Low 3.4-4.8 [facility] Comment on above: Order Comment: REDRA W. PREVIOUS SPECIMEN REJECTED DUE TOHEMOLYSIS. 07/02/24516 Jamari Aguayo. Performed By: #### L 500.4050, L501.2300, L501.5200 ####[facility] [address] [place], [address] Albumin/Globulin [Mass ratio] 1.2 {ratio} Normal 0.9-2.4 [facility] Comment on above: Order Comment: REDRA W. PREVIOUS SPECIMEN REJECTED DUE TOHEMOLYSIS. 07/02/24516 Jamari Aguayo. Performed By: #### L 500.4050, L501.2300, L501.5200 ####[facility] [address] [place], [address] ALK PHOS 101 U/L Normal 40-129 [facility] Comment on above: Order Comment: REDRA W. PREVIOUS SPECIMEN REJECTED DUE TOHEMOLYSIS. 07/02/24516 Jamari Aguayo. Performed By: #### L 500.4050, L501.2300, L501.5200 ####[facility] [address] [place], [address] ALT [Catalytic activity/Vol] 26 U/L Normal <=46 [facility] Comment on above: Order Comment: REDRA W. PREVIOUS SPECIMEN REJECTED DUE TOHEMOLYSIS. 07/02/24516 Jamari Aguayo. Performed By: #### L 500.4050, L501.2300, L501.5200 ####[facility] [address] [place], [address] AST [Catalytic activity/Vol] 54 U/L High <=37 [facility] Comment on above: Order Comment: REDRA W. PREVIOUS SPECIMEN REJECTED DUE TOHEMOLYSIS. 07/02/24516 Jamari Aguayo. Performed By: #### L 500.4050, L501.2300, L501.5200 ####[facility] [address] [place], [address] Bilirubin [Mass/Vol] 0.29 mg/dL Normal 0.00-1.30 [facility] Comment on above: Order Comment: REDRA W. PREVIOUS SPECIMEN REJECTED DUE TOHEMOLYSIS. 07/02/2417 Jamari Aguayo. Performed By: #### L 500.4050, L501.2300, L501.5200 ####[facility] [address] [place], [address] BUN/CRE 8.9 RATIO Low 10-20 [facility] Comment on above: Order Comment: REDRA W. PREVIOUS SPECIMEN REJECTED DUE TOHEMOLYSIS. 07/02/2417 Jamari Aguayo. Performed By: #### L 500.4050, L501.2300, L501.5200 ####[facility] [address] [place], [address] Calcium [Mass/Vol] 7.7 mg/dL Normal 7.6-11.0 [facility] Comment on above: Order Comment: REDRA W. PREVIOUS SPECIMEN REJECTED DUE TOHEMOLYSIS. 07/02/24516 Jamari gAuayo. Performed By: #### L 500.4050, L501.2300, L501.5200 ####[facility] [address] [place], [address] Chloride [Moles/Vol] 108 mmol/L Normal 98-108 [facility] Comment on above: Order Comment: REDRA W. PREVIOUS SPECIMEN REJECTED DUE TOHEMOLYSIS. 07/02/24516 Jamari Aguayo. Performed By: #### L 500.4050, L501.2300, L501.5200 ####[facility] [address] [place], [address] CO2 [Moles/Vol] 26.7 mmol/L Normal 21.0-32.0 [facility] Comment on above: Order Comment: REDRA W. PREVIOUS SPECIMEN REJECTED DUE TOHEMOLYSIS. 07/02/24516 Jamari Aguayo. Performed By: #### L 500.4050, L501.2300, L501.5200 ####[facility] [address] [place], [address] Creatinine [Mass/Vol] 1.22 mg/dL High 0.70-1.20 [facility] Comment on above: Order Comment: REDRA W. PREVIOUS SPECIMEN REJECTED DUE TOHEMOLYSIS. 07/02/24516 Jamari Aguayo. Performed By: #### L 500.4050, L501.2300, L501.5200 ####[facility] [address] [place], [address] ECRCL 65.56 ml/min Normal 50-250 [facility] Comment on above: Order Comment: REDRA W. PREVIOUS SPECIMEN REJECTED DUE TOHEMOLYSIS. 07/02/24516 Jamari Aguayo. Performed By: #### L 500.4050, L501.2300, L501.5200 ####[facility] [address] [place], [address] GAP 7 Normal 5-15 [facility] Comment on above: Order Comment: REDRA W. PREVIOUS SPECIMEN REJECTED DUE TOHEMOLYSIS. 07/02/24516 Jamari Aguayo. Performed By: #### L 500.4050, L501.2300, L501.5200 ####[facility] [address] [place], [address] GFR/1.73 sq M.predicted among non-blacks MDRD (S/P/Bld) [Vol rate/Area] 67 mL/min/{1.73_m2} Normal >60 [facility] Comment on above: Order Comment: REDRA W. PREVIOUS SPECIMEN REJECTED DUE TOHEMOLYSIS. 07/02/24516 Jamari Aguayo. Result Comment: mL/m in/1.73m2 CKD-EPI Creatinine Equation (2020) Performed By: #### L 500.4050, L501.2300, L501.5200 ####[facility] [address] [place], [address] Globulin (S) [Mass/Vol] 2.0 g/dL Low 2.2-4.2 [facility] Comment on above: Order Comment: REDRA W. PREVIOUS SPECIMEN REJECTED DUE TOHEMOLYSIS. 07/02/2417 Jamari Aguayo. Performed By: #### L 500.4050, L501.2300, L501.5200 ####[facility] [address] [place], [address] Glucose [Mass/Vol] 57 mg/dL Low 70-99 [facility] Comment on above: Order Comment: REDRA W. PREVIOUS SPECIMEN REJECTED DUE TOHEMOLYSIS. 07/02/2417 Jamari Aguayo. Performed By: #### L 500.4050, L501.2300, L501.5200 ####[facility] [address] [place], [address] Potassium [Moles/Vol] 4.1 mmol/L Normal 3.3-5.1 [facility] Comment on above: Order Comment: REDRA W. PREVIOUS SPECIMEN REJECTED DUE TOHEMOLYSIS. 07/02/24516 Jamari Aguayo. Performed By: #### L 500.4050, L501.2300, L501.5200 ####[facility] [address] [place], [address] Sodium [Moles/Vol] 141 mmol/L Normal 133-145 [facility] Comment on above: Order Comment: REDRA W. PREVIOUS SPECIMEN REJECTED DUE TOHEMOLYSIS. 07/02/24516 Jamari Aguayo. Performed By: #### L 500.4050, L501.2300, L501.5200 ####[facility] [address] [place], [address] T PROT 4.3 g/dL Low 5.9-8.4 [facility] Comment on above: Order Comment: REDRA W. PREVIOUS SPECIMEN REJECTED DUE TOHEMOLYSIS. 07/02/24516 Jamari Aguayo. Performed By: #### L 500.4050, L501.2300, L501.5200 ####[facility] [address] [place], [address] Urea nitrogen [Mass/Vol] 11 mg/dL Normal 4-19 [facility] Comment on above: Order Comment: REDRA W. PREVIOUS SPECIMEN REJECTED DUE TOHEMOLYSIS. 07/02/24516 Jamari Aguayo. Performed By: #### L 500.4050, L501.2300, L501.5200 ####[facility] [address] [place], [address] ALB Normal 3.4-4.8 [facility] Comment on above: Result Comment: This specimen has been REJECTED due to Laboratory criteria:Hemolyzed.Candida Duke has been notified of need of recollection.07/02/24515 Jamari Aguayo Performed By: #### L 500.4050, L501.5200, L501.2300 ####[facility] [address] [place], [address] ALK PHOS Normal 40-129 [facility] Comment on above: Result Comment: This specimen has been REJECTED due to Laboratory criteria:Hemolyzed.Candida Duke has been notified of need of recollection.07/02/24515 Jamari Callahan White Performed By: #### L 500.4050, L501.5200, L501.2300 ####[facility] [address] [place], [address] ALT Normal <=46 [facility] Comment on above: Result Comment: This specimen has been REJECTED due to Laboratory criteria:Hemolyzed.Candida Duke has been notified of need of recollection.07/02/24515 Jamari Callahan White Performed By: #### L 500.4050, L501.5200, L501.2300 ####[facility] [address] [place], [address] AST Normal <=37 [facility] Comment on above: Result Comment: This specimen has been REJECTED due to Laboratory criteria:Hemolyzed.Candida Duke has been notified of need of recollection.07/02/24515 Jamari Callahan White Performed By: #### L 500.4050, L501.5200, L501.2300 ####[facility] [address] [place], [address] BUN Normal 4-19 [facility] Comment on above: Result Comment: This specimen has been REJECTED due to Laboratory criteria:Hemolyzed.Candida Duke has been notified of need of recollection.07/02/24515 Jamari Callahan White Performed By: #### L 500.4050, L501.5200, L501.2300 ####[facility] [address] [place], [address] BUN/CRE Normal 10-20 [facility] Comment on above: Result Comment: This specimen has been REJECTED due to Laboratory criteria:Hemolyzed.Candida Duke has been notified of need of recollection.07/02/24515 Jamari L White Performed By: #### L 500.4050, L501.5200, L501.2300 ####[facility] [address] [place], [address] Calcium Normal 7.6-11.0 [facility] Comment on above: Result Comment: This specimen has been REJECTED due to Laboratory criteria:Hemolyzed.Candida Duke has been notified of need of recollection.07/02/24515 Jamari L White Performed By: #### L 500.4050, L501.5200, L501.2300 ####[facility] [address] [place], [address] CL Normal 98-108 [facility] Comment on above: Result Comment: This specimen has been REJECTED due to Laboratory criteria:Hemolyzed.Candida Duke has been notified of need of recollection.07/02/24515 Jamari L White Performed By: #### L 500.4050, L501.5200, L501.2300 ####[facility] [address] [place], [address] CO2 Normal 21.0-32.0 [facility] Comment on above: Result Comment: This specimen has been REJECTED due to Laboratory criteria:Hemolyzed.Candida Duke has been notified of need of recollection.07/02/24515 Jamari L White Performed By: #### L 500.4050, L501.5200, L501.2300 ####[facility] [address] [place], [address] CREAT,SERUM Normal 0.70-1.20 [facility] Comment on above: Result Comment: This specimen has been REJECTED due to Laboratory criteria:Hemolyzed.Candida Duke has been notified of need of recollection.07/02/24515 Jamari L White Performed By: #### L 500.4050, L501.5200, L501.2300 ####[facility] [address] [place], [address] eGFR Normal >60 [facility] Comment on above: Result Comment: This specimen has been REJECTED due to Laboratory criteria:Hemolyzed.Candida Duke has been notified of need of recollection.07/02/24515 Jamari L White Performed By: #### L 500.4050, L501.5200, L501.2300 ####[facility] [address] [place], [address] GAP Normal 5-15 [facility] Comment on above: Result Comment: This specimen has been REJECTED due to Laboratory criteria:Hemolyzed.Candida Duke has been notified of need of recollection.07/02/24515 Jamari L White Performed By: #### L 500.4050, L501.5200, L501.2300 ####[facility] [address] [place], [address] GLU Normal 70-99 [facility] Comment on above: Result Comment: This specimen has been REJECTED due to Laboratory criteria:Hemolyzed.Candida Duke has been notified of need of recollection.07/02/24515 Jamari L White Performed By: #### L 500.4050, L501.5200, L501.2300 ####[facility] [address] [place], [address] Potassium Normal 3.3-5.1 [facility] Comment on above: Result Comment: This specimen has been REJECTED due to Laboratory criteria:Hemolyzed.Candida Duke has been notified of need of recollection.07/02/24515 Jamari L White Performed By: #### L 500.4050, L501.5200, L501.2300 ####[facility] [address] [place], [address] T BILI Normal 0.00-1.30 [facility] Comment on above: Result Comment: This specimen has been REJECTED due to Laboratory criteria:Hemolyzed.Candida Duke has been notified of need of recollection.07/02/24515 Jamari L White Performed By: #### L 500.4050, L501.5200, L501.2300 ####[facility] [address] [place], [address] T PROT Normal 5.9-8.4 [facility] Comment on above: Result Comment: This specimen has been REJECTED due to Laboratory criteria:Hemolyzed.Candida Duke has been notified of need of recollection.07/02/24515 Jamari Callahan White Performed By: #### L 500.4050, L501.5200, L501.2300 ####[facility] [address] [place], [address] Comprehensive Metabolic Profil Normal 133-145 [facility] Comment on above: Result Comment: This specimen has been REJECTED due to Laboratory criteria:Hemolyzed.Cnadida Duke has been notified of need of recollection.07/02/24515 Jamari Callahan White Performed By: #### L 500.4050, L501.5200, L501.2300 ####[facility] [address] [place], [address] Culture, Anaerobic Any Sourc chase 07-02-2024 CUAN No growth in 5 days. Normal [facility] Comment on above: Performed By: #### M 100.2000, M100.2900, M100.4001 ####[facility] [address] [place], [address] Differential Commenton 07-02 SMEAR COMMENT Normal [facility] Comment on above: Result Comment: 2+ A NISOCYTOSIS1+ OVALOCYTES1+ SHISTOCYTESRARE ACANTHOCYTESSLIGHT DECREASE PLATELETS Performed By: #### L 100.4500, L100.0500 ####[facility] [address] [place], [address] Magnesiumon 07-02-2024 Magnesium [Mass/Vol] 1.8 mg/dL Normal 1.5-2.2 [facility] Comment on above: Order Comment: REDRA W. PREVIOUS SPECIMEN REJECTED DUE TOHEMOLYSIS. 07/02/24516 Jamari Aguayo. Performed By: #### L 500.4050, L501.2300, L501.5200 ####[facility] [address] [place], [address] Magnesium [Mass/Vol] 1.8 mg/dL Normal 1.5-2.2 [facility] Comment on above: Order Comment: This specimen has been REJECTED due to Laboratory criteria:Hemolyzed.Candida Duke has been notified of need of recollection.07/02/24515 Jamari Aguayo Result Comment: This specimen has been REJECTED due to Laboratory criteria:Hemolyzed.Candida Duke has been notified of need of recollection.07/02/24515 Jamari Aguayo Performed By: #### L 500.4050, L501.5200, L501.2300 ####[facility] [address] [place], [address] No Panel InformationOrdered By: Melonie De La Rosa on 07-02-2024 54 U/L High <38 [facility] Phosphoruson 07-02-2024 Phosphate [Mass/Vol] 2.4 mg/dL Low 2.7-4.5 [facility] Comment on above: Order Comment: REDRA W. PREVIOUS SPECIMEN REJECTED DUE TOHEMOLYSIS. 07/02/24516 Jamari Aguayo. Performed By: #### L 500.4050, L501.2300, L501.5200 ####[facility] [address] [place], [address] Phosphate [Mass/Vol] 2.7 mg/dL Normal 2.7-4.5 [facility] Comment on above: Order Comment: This specimen has been REJECTED due to Laboratory criteria:Hemolyzed.Candida Duke has been notified of need of recollection.07/02/24515 Jamari Aguayo Result Comment: This specimen has been REJECTED due to Laboratory criteria:Hemolyzed.Candida Duke has been notified of need of recollection.07/02/24515 Jamari Aguayo Performed By: #### L 500.4050, L501.5200, L501.2300 ####[facility] [address] [place], [address] Serum globulin measurementOr dered By: Melonie De La Rosa on 07-02-2024 Globulin (S) [Mass/Vol] 2.0 g/dL Low 2.2-4.[address] [facility] Serum or plasma alanine padilla otransferase (ALT) measurementOrdered By: Melonie De La Rosa on 07-02-2024 ALT [Catalytic activity/Vol] 26 U/L <47 [facility] Serum or plasma albumin luciana urement (mass/volume)Ordered By: Melonie De La Rosa on 07-02-2024 Albumin [Mass/Vol] 2.3 g/dL Low 3.4-4.8 [facility] Serum or plasma albumin/glob ulin mass ratioOrdered By: Melonie De La Rosa on 07-02-2024 Albumin/Globulin [Mass ratio] 1.2 {ratio} 0.9-2.4 [facility] Serum or plasma alkaline nolan sphatase measurementOrdered By: Melonie De La Rosa on 07-02-2024 ALP [Catalytic activity/Vol] 101 U/L 40-129 [facility] Total proteinOrdered By: Shiar De La Rosa on 07-02-2024 Protein [Mass/Vol] 4.3 g/dL Low 5.9-8.4 [facility] Absolute lymphocyte countOrd ered By: Conrado Fraser on 07-01-2024 Lymphocytes Auto (Unsp spec) [#/Vol] 0.93 10*3/uL 0.83-4.51 [facility] Automated lymphocyte count a s percentage of total leukocytesOrdered By: Conrado Fraser on 07-01-2024 Lymphocytes/100 WBC Auto (Unsp spec) 19.3 % 19-41 [facility] Basophil percentageOrdered B y: Conrado Fraser on 07-01-2024 Basophils/100 WBC (Bld) 0.8 % 0-[address] [facility] Bedside Glucoseon 07-01-2024 FINGERSTICK GLU 158 mg/dL High 74-106 [facility] Comment on above: Result Comment: DAYANARA GEMENT OF PATIENT CARE PER NURSING PROTOCOL Performed By: #### L 501.080 ####[facility] [address] [place], [address] FINGERSTICK GLU 237 mg/dL High 74-106 [facility] Comment on above: Result Comment: DAYANARA GEMENT OF PATIENT CARE PER NURSING PROTOCOL Performed By: #### L 501.080 ####[facility] [address] [place], [address] FINGERSTICK GLU 114 mg/dL High 74-106 [facility] Comment on above: Result Comment: DAYANARA GEMENT OF PATIENT CARE PER NURSING PROTOCOL Performed By: #### L 501.080 ####[facility] [address] [place], [address] FINGERSTICK GLU 238 mg/dL High 74-106 [facility] Comment on above: Result Comment: DAYANARA GEMENT OF PATIENT CARE PER NURSING PROTOCOL Performed By: #### L 501.080 ####[facility] [address] [place], [address] CBC W/Diff, Automatedon 05-2 Anisocytosis Ql (Bld) 1+ Normal [facility] Comment on above: Performed By: #### L 500.4050, L100.0100, L501.2300 ####[facility] [address] [place], [address] MACROCYTOSIS 1+ Normal [facility] Comment on above: Performed By: #### L 500.4050, L100.0100, L501.2300 ####[facility] [address] [place], [address] SMEAR COMMENT SCANNED Normal [facility] Comment on above: Performed By: #### L 500.4050, L100.0100, L501.2300 ####[facility] [address] [place], [address] Comprehensive Metabolic Prof nigel 07-01-2024 GAP 7 Normal 5-15 [facility] Comment on above: Performed By: #### L 500.4050, L100.0100, L501.2300 ####[facility] [address] [place], [address] Albumin [Mass/Vol] 2.4 g/dL Low 3.4-4.8 [facility] Comment on above: Performed By: #### L 500.4050, L100.0100, L501.2300 ####[facility] [address] [place], [address] Albumin/Globulin [Mass ratio] 1.3 {ratio} Normal 0.9-2.4 [facility] Comment on above: Performed By: #### L 500.4050, L100.0100, L501.2300 ####[facility] [address] [place], [address] ALK PHOS 87 U/L Normal 40-129 [facility] Comment on above: Performed By: #### L 500.4050, L100.0100, L501.2300 ####[facility] [address] [place], [address] ALT [Catalytic activity/Vol] 25 U/L Normal <=46 [facility] Comment on above: Performed By: #### L 500.4050, L100.0100, L501.2300 ####[facility] [address] [place], [address] AST [Catalytic activity/Vol] 43 U/L High <=37 [facility] Comment on above: Performed By: #### L 500.4050, L100.0100, L501.2300 ####[facility] [address] [place], [address] Bilirubin [Mass/Vol] 0.36 mg/dL Normal 0.00-1.30 [facility] Comment on above: Performed By: #### L 500.4050, L100.0100, L501.2300 ####[facility] [address] [place], [address] BUN/CRE 8.0 RATIO Low 10-20 [facility] Comment on above: Performed By: #### L 500.4050, L100.0100, L501.2300 ####[facility] [address] [place], [address] Calcium [Mass/Vol] 7.7 mg/dL Normal 7.6-11.0 [facility] Comment on above: Performed By: #### L 500.4050, L100.0100, L501.2300 ####[facility] [address] [place], [address] Chloride [Moles/Vol] 103 mmol/L Normal 98-108 [facility] Comment on above: Performed By: #### L 500.4050, L100.0100, L501.2300 ####[facility] [address] [place], [address] CO2 [Moles/Vol] 25.9 mmol/L Normal 21.0-32.0 [facility] Comment on above: Performed By: #### L 500.4050, L100.0100, L501.2300 ####[facility] [address] [place], [address] Creatinine [Mass/Vol] 1.28 mg/dL High 0.70-1.20 [facility] Comment on above: Performed By: #### L 500.4050, L100.0100, L501.2300 ####[facility] [address] [place], [address] ECRCL 64.55 ml/min Normal 50-250 [facility] Comment on above: Performed By: #### L 500.4050, L100.0100, L501.2300 ####[facility] [address] [place], [address] GFR/1.73 sq M.predicted among non-blacks MDRD (S/P/Bld) [Vol rate/Area] 64 mL/min/{1.73_m2} Normal >60 [facility] Comment on above: Result Comment: mL/m in/1.73m2 CKD-EPI Creatinine Equation (2020) Performed By: #### L 500.4050, L100.0100, L501.2300 ####[facility] [address] [place], [address] Globulin (S) [Mass/Vol] 1.9 g/dL Low 2.2-4.[address] [facility] Comment on above: Performed By: #### L 500.4050, L100.0100, L501.2300 ####[facility] [address] [place], [address] Glucose [Mass/Vol] 256 mg/dL High 70-99 [facility] Comment on above: Performed By: #### L 500.4050, L100.0100, L501.2300 ####[facility] [address] [place], [address] Potassium [Moles/Vol] 4.2 mmol/L Normal 3.3-5.1 [facility] Comment on above: Performed By: #### L 500.4050, L100.0100, L501.2300 ####[facility] [address] [place], [address] Sodium [Moles/Vol] 136 mmol/L Normal 133-145 [facility] Comment on above: Performed By: #### L 500.4050, L100.0100, L501.2300 ####[facility] [address] [place], [address] T PROT 4.4 g/dL Low 5.9-8.4 [facility] Comment on above: Performed By: #### L 500.4050, L100.0100, L501.2300 ####[facility] [address] [place], [address] Urea nitrogen [Mass/Vol] 10 mg/dL Normal 4-19 [facility] Comment on above: Performed By: #### L 500.4050, L100.0100, L501.2300 ####[facility] [address] [place], [address] Echo Completeon 07-01-2024 Echo Complete Normal [facility] Eosinophil percentageOrdered By: Conrado Fraser on 07-01-2024 Eosinophils/100 WBC (Bld) 1.0 % 0-5 [facility] Immature granulocytes/100 WB C Auto (Bld)Ordered By: Conrado Fraser on 07-01-2024 Immature granulocytes/100 WBC (Bld) 0.200 % 0.0-0.9 [facility] L499.0043on 07-01-2024 Trop T High Sen 97 ng/L Invalid Interpretation Code <=22 [facility] Comment on above: Result Comment: Crit ical Result(s) Called at 0152: by:??NBURNS TO EAFFOLTERResults read back by same. Performed By: #### L 499.0043 ####[facility] [address] [place], [address] Macrocytes detectionOrdered By: Conrado Fraser on 07-01-2024 Macrocytes Ql (Bld) 1+ [facility] Monocyte percentageOrdered B y: Conrado Fraser on 07-01-2024 Monocytes/100 WBC (Bld) 9.8 % 0-[address] [facility] Neutrophil percentageOrdered By: Conrado Fraser on 07-01-2024 Neutrophils/100 WBC (Bld) 68.9 % 47-70 [facility] No Panel InformationOrdered By: Conrado Fraser on 07-01-2024 1+ [facility] Operative Reporton Operative Report Normal [facility] Phosphoruson 07-01-2024 Phosphate [Mass/Vol] 3.1 mg/dL Normal 2.7-4.5 [facility] Comment on above: Performed By: #### L 500.4050, L100.0100, L501.2300 ####[facility] [address] [place], [place], [address] Troponin T.cardiac [Mass/vol ume] in Serum or Plasma by High sensitivity methodOrdered By: Conrado Fraser on 07-01-2024 Troponin T.cardiac High sensitivity method [Mass/Vol] 97 ng/L High <22 [facility] Abdomen/Pelvis W IV Cont ONL Yon 06-30-2024 Abdomen/Pelvis W IV Cont ONLY Normal [facility] Alcohol, Blood (Medical)-Ser umon 06-30-2024 SERUM ETOH < 10.1 Normal <=10.0 [facility] Comment on above: Result Comment: This test is for medical purposes only. The legaldefinition of intoxication varies according to local law. Performed By: #### L 500.3400, L100.0100, L503.6005, L501.2450, L500.2500, L300.3900, L300.4310, L501.9100 ####[facility] [address] [place], [place], [address] Basic Metabolic Profile (BMP )on 06-30-2024 BUN/CRE 7.7 RATIO Low 10-20 [facility] Comment on above: Performed By: #### L 500.3400, L100.0100, L503.6005, L501.2450, L500.2500, L300.3900, L300.4310, L501.9100 ####[facility] [address] [place], [address] Calcium [Mass/Vol] 8.2 mg/dL Normal 7.6-11.0 [facility] Comment on above: Performed By: #### L 500.3400, L100.0100, L503.6005, L501.2450, L500.2500, L300.3900, L300.4310, L501.9100 ####[facility] [address] [place], [address] Chloride [Moles/Vol] 101 mmol/L Normal 98-108 [facility] Comment on above: Performed By: #### L 500.3400, L100.0100, L503.6005, L501.2450, L500.2500, L300.3900, L300.4310, L501.9100 ####[facility] [address] [place], [address] CO2 [Moles/Vol] 24.7 mmol/L Normal 21.0-32.0 [facility] Comment on above: Performed By: #### L 500.3400, L100.0100, L503.6005, L501.2450, L500.2500, L300.3900, L300.4310, L501.9100 ####[facility] [address] [place], [address] Creatinine [Mass/Vol] 1.41 mg/dL High 0.70-1.20 [facility] Comment on above: Performed By: #### L 500.3400, L100.0100, L503.6005, L501.2450, L500.2500, L300.3900, L300.4310, L501.9100 ####[facility] [address] [place], [address] ECRCL 58.60 ml/min Normal 50-250 [facility] Comment on above: Performed By: #### L 500.3400, L100.0100, L503.6005, L501.2450, L500.2500, L300.3900, L300.4310, L501.9100 ####[facility] [address] [place], [address] GAP 9 Normal 5-15 [facility] Comment on above: Performed By: #### L 500.3400, L100.0100, L503.6005, L501.2450, L500.2500, L300.3900, L300.4310, L501.9100 ####[facility] [address] [place], [address] GFR/1.73 sq M.predicted among non-blacks MDRD (S/P/Bld) [Vol rate/Area] 57 mL/min/{1.73_m2} Low >60 [facility] Comment on above: Result Comment: mL/m in/1.73m2 CKD-EPI Creatinine Equation (2020) Performed By: #### L 500.3400, L100.0100, L503.6005, L501.2450, L500.2500, L300.3900, L300.4310, L501.9100 ####[facility] [address] [place], [address] Glucose [Mass/Vol] 159 mg/dL High 70-99 [facility] Comment on above: Performed By: #### L 500.3400, L100.0100, L503.6005, L501.2450, L500.2500, L300.3900, L300.4310, L501.9100 ####[facility] [address] [place], [address] Potassium [Moles/Vol] 4.2 mmol/L Normal 3.3-5.1 [facility] Comment on above: Performed By: #### L 500.3400, L100.0100, L503.6005, L501.2450, L500.2500, L300.3900, L300.4310, L501.9100 ####[facility] [address] [place], [address] Sodium [Moles/Vol] 135 mmol/L Normal 133-145 [facility] Comment on above: Performed By: #### L 500.3400, L100.0100, L503.6005, L501.2450, L500.2500, L300.3900, L300.4310, L501.9100 ####[facility] [address] [place], [place], [address] Urea nitrogen [Mass/Vol] 11 mg/dL Normal 4-19 [facility] Comment on above: Performed By: #### L 500.3400, L100.0100, L503.6005, L501.2450, L500.2500, L300.3900, L300.4310, L501.9100 ####[facility] [address] [place], [place], [address] Bedside Glucoseon 06-30-2024 FINGERSTICK GLU 123 mg/dL High 74-106 [facility] Comment on above: Result Comment: DAYANARA MORENO OF PATIENT CARE PER NURSING PROTOCOL Performed By: #### L 501.080 ####[facility] [address] [place], [place], [address] Bilirubin Test strip Ql (U)O rdered By: Narendra Gonzalez on 06-30-2024 Bilirubin Ql (U) 1 mg/dL High Negative [facility] Bilirubin directOrdered By: Narendra Gonzalez on 06-30-2024 Bilirubin.direct [Mass/Vol] 0.27 mg/dL 0.00-0.30 [facility] Blood polychromasia detectio n by light microscopyOrdered By: Narendra Gonzalez on 06-30-2024 Polychromasia LM Ql (Bld) 2+ [facility] CBC W/Diff, Automatedon 06-09 Anisocytosis Ql (Bld) 2+ Normal [facility] Comment on above: Performed By: #### L 500.3400, L100.0100, L503.6005, L501.2450, L500.2500, L300.3900, L300.4310, L501.9100 ####[facility] [address] [place], [address] POLYCHROMASIA 2+ Normal [facility] Comment on above: Performed By: #### L 500.3400, L100.0100, L503.6005, L501.2450, L500.2500, L300.3900, L300.4310, L501.9100 ####[facility] [address] [place], [address] CO2 (BldV) [Moles/Vol]Ordere d By: Conrado Fraser on 06-30-2024 CO2 [Moles/Vol] 29 mmol/L [facility] Chest 1 View (Portable)on Chest 1 View (Portable) Normal [facility] Emergency Department Summary on 06-30-2024 Emergency Department Summary Normal [facility] H AND P Exam - Hospitaliston 06-30-2024 H&P Exam - Hospitalist Normal [facility] Ketones Test strip Ql (U)Ord ered By: Narendra Gonzalez on 06-30-2024 Ketones Ql (U) 5 mg/dl High Negative [facility] L499.0042on 06-30-2024 Trop T High Sen 98 ng/L Invalid Interpretation Code <=22 [facility] Comment on above: Result Comment: Crit ical Result(s) Called at: 2337 by:??MATTHEW FLETCHER. Results read back by same. Performed By: #### L 499.0042 ####[facility] [address] [place], [address] L501.4021on 06-30-2024 Trop T High Sen 93 ng/L Invalid Interpretation Code <=22 [facility] Comment on above: Order Comment: PT RE FUSED A PHLEBOTOMY DRAW. ONLY WOULD LET NURSE DRAW FROM LINE. Result Comment: Crit ical Result(s) Called at: 2144 by: SYD OVIEDO??Results read back by same. Performed By: #### L 501.4021 ####[facility] [address] [place], [place], [address] L503.7505on 06-30-2024 Natriuretic peptide B (Bld) [Mass/Vol] 31543 pg/mL High <=900 [facility] Comment on above: Result Comment: Hear t Failure Unlikely: < 300 pg/mLHeart Failure Likely< 50 Years: > 450 pg/mL50-75 Years: > 900 pg/mL>75 Years: > 1800 pg/mL Performed By: #### L 503.4548 ####[facility] [address] [place], [address] Lactic Acidon 06-30-2024 Lactate [Moles/Vol] 1.4 mmol/L Normal 0.0-2.0 [facility] Comment on above: Order Comment: Y Performed By: #### L 500.3400, L100.0100, L503.6005, L501.2450, L500.2500, L300.3900, L300.4310, L501.9100 ####[facility] [address] [place], [place], [address] Lipaseon 06-30-2024 Lipase [Catalytic activity/Vol] 6 U/L Low 13-75 [facility] Comment on above: Result Comment: Mary Anne zamorano note:LIPASE revised reference range effective 22.New Lipase methodology. Expected to produce lower valuesthan the previous assay method.NEW Reference Range: 13 - 75 U/L Performed By: #### L 500.3400, L100.0100, L503.6005, L501.2450, L500.2500, L300.3900, L300.4310, L501.9100 ####[facility] [address] [place] [place], [id number] Liver Profileon 06-30-2024 Albumin [Mass/Vol] 2.5 g/dL Low 3.4-4.8 [facility] Comment on above: Performed By: #### L 500.3400, L100.0100, L503.6005, L501.2450, L500.2500, L300.3900, L300.4310, L501.9100 ####[facility] [address] [place], [place], [phone] ALK PHOS 117 U/L Normal 40-129 [facility] Comment on above: Performed By: #### L 500.3400, L100.0100, L503.6005, L501.2450, L500.2500, L300.3900, L300.4310, L501.9100 ####[facility] [address] [place], [phone] ALT [Catalytic activity/Vol] 34 U/L Normal <=46 [facility] Comment on above: Performed By: #### L 500.3400, L100.0100, L503.6005, L501.2450, L500.2500, L300.3900, L300.4310, L501.9100 ####[facility] [address] [place], [place], [phone] AST [Catalytic activity/Vol] 55 U/L High <=37 [facility] Comment on above: Performed By: #### L 500.3400, L100.0100, L503.6005, L501.2450, L500.2500, L300.3900, L300.4310, L501.9100 ####[facility] [address] [place], [place], [phone] Bilirubin [Mass/Vol] 0.45 mg/dL Normal 0.00-1.30 [facility] Comment on above: Performed By: #### L 500.3400, L100.0100, L503.6005, L501.2450, L500.2500, L300.3900, L300.4310, L501.9100 ####[facility] [address] [place], [place], [phone] Bilirubin.direct [Mass/Vol] 0.27 mg/dL Normal 0.00-0.30 [facility] Comment on above: Performed By: #### L 500.3400, L100.0100, L503.6005, L501.2450, L500.2500, L300.3900, L300.4310, L501.9100 ####[facility] [address] [place], [address] Globulin (S) [Mass/Vol] 2.6 g/dL Normal 2.2-4.2 [facility] Comment on above: Performed By: #### L 500.3400, L100.0100, L503.6005, L501.2450, L500.2500, L300.3900, L300.4310, L501.9100 ####[facility] [address] [place], [place], [phone]([phone] T PROT 5.1 g/dL Low 5.9-8.4 [facility] Comment on above: Performed By: #### L 500.3400, L100.0100, L503.6005, L501.2450, L500.2500, L300.3900, L300.4310, L501.9100 ####[facility] [address] [place], [address] Magnesiumon 06-30-2024 Magnesium [Mass/Vol] 1.6 mg/dL Normal 1.5-2.2 [facility] Comment on above: Performed By: #### L 501.5200 ####[facility] [address] [place], [place], [phone] Mucus LM Ql (Urine sed)Order ed By: Narendra Gonzalez on 06-30-2024 Mucus Ql (Urine sed) 0 SEEN /hpf [facility] Natriuretic peptide.B prohor irene N-Terminal [Mass/volume] in Serum or PlasmaOrdered By: Conrado Fraser on 06-30-2024 Natriuretic peptide.B prohormone N-Terminal [Mass/Vol] 27784 pg/mL High <900 [facility] Nitrite Test strip Ql (U)Ord ered By: Narendra Gonzalez on 06-30-2024 Nitrite Ql (U) Negative Negative [facility] No Panel InformationOrdered By: Conrado Fraser on 06-30-2024 ROSA [facility] Not entered [facility] Room Air [facility] Partial Thromboplast Timeon 06-30-2024 aPTT Coag (Bld) [Time] 29.0 s Normal 24.1-36.2 [facility] Comment on above: Performed By: #### L 500.3400, L100.0100, L503.6005, L501.2450, L500.2500, L300.3900, L300.4310, L501.9100 ####[facility] [address] [place], [address] Protein Test strip Ql (U)Ord ered By: Narendra Gonzalez on 06-30-2024 Protein Ql (U) 30 mg/dl High Negative [facility] Prothrombin Time w/INRon INR Coag (PPP) [Relative time] 1.2 {INR} Normal [facility] Comment on above: Performed By: #### L 500.3400, L100.0100, L503.6005, L501.2450, L500.2500, L300.3900, L300.4310, L501.9100 ####[facility] [address] [place], [address] PT Coag (PPP) [Time] 15.9 s High 11.7-14.9 [facility] Comment on above: Performed By: #### L 500.3400, L100.0100, L503.6005, L501.2450, L500.2500, L300.3900, L300.4310, L501.9100 ####[facility] [address] [place], [address] Serum or plasma ethanol luciana urement (mass/volume)Ordered By: Narendra Gonzalez on 06-30-2024 Ethanol [Mass/Vol] mg/dL <10.1 [facility] Squamous epithelial cells de tection in urine sediment by light microscopyOrdered By: Narendra Gonzalez on 06-30-2024 Epithelial cells.squamous LM Ql (Urine sed) 0-5 SEEN /hpf 0-5 [facility] Troponin T.cardiac [Mass/vol ume] in Serum or Plasma by High sensitivity methodOrdered By: Conrado Fraser on 06-30-2024 Troponin T.cardiac High sensitivity method [Mass/Vol] 98 ng/L High <22 [facility] Troponin T.cardiac High sensitivity method [Mass/Vol] 93 ng/L High <22 [facility] Urinalysis, Completeon 06-30 EPI,SQUAMOUS 0-5 SEEN Normal 0-5 [facility] Comment on above: Order Comment: CLEAN CATCH Performed By: #### L 400.0001 ####[facility] [address] [place], [address] RBC 0-5 SEEN Normal 0-5 [facility] Comment on above: Order Comment: CLEAN CATCH Performed By: #### L 400.0001 ####[facility] [address] [place], [address] WBC 0-5 SEEN Normal 0-5 [facility] Comment on above: Order Comment: CLEAN CATCH Performed By: #### L 400.0001 ####[facility] [address] [place], [address] BACTERIA 0 SEEN Normal None Seen [facility] Comment on above: Order Comment: CLEAN CATCH Performed By: #### L 400.0001 ####[facility] [address] [place], [address] Mucus Ql (Urine sed) 0 SEEN Normal [facility] Comment on above: Order Comment: CLEAN CATCH Performed By: #### L 400.0001 ####[facility] [address] [place], [address] Urine clarityOrdered By: Abrahan Gonzalez on 06-30-2024 Clarity (U) Sl. Cloudy Clear [facility] Urine color determinationOrd ered By: Narendra Gonzalez on 06-30-2024 Color (U) Yellow Yellow [facility] Urine glucose detectionOrder ed By: Narendra Gonzalez on 06-30-2024 Glucose Ql (U) Normal mg/dl Normal [facility] Urine leukocyte esterase det ection by dipstickOrdered By: Narendra Gonzalez on 06-30-2024 Leukocyte esterase Test strip Ql (U) 25 /ul High Negative [facility] Urine pHOrdered By: Narendra velasquez on 06-30-2024 pH (U) 6.0 [pH] 5.0 - 8.0 [facility] Urine sediment bacteria coun t by microscopy (number/high power field)Ordered By: Narendra Gonzalez on 06-30-2024 Bacteria LM.HPF (Urine sed) [#/Area] 0 /[HPF] None Seen [facility] Urine specific gravity measu rementOrdered By: Narendra Gonzalez on 06-30-2024 Specific gravity (U) [Rel density] 1.020 1.002-1.030 [facility] Urine urobilinogen measureme ntOrdered By: Narendra Gonzalez on 06-30-2024 Urobilinogen Ql (U) Normal mg/dl Normal [facility] Venous Blood Gason 5 Blood Gas Type ROSA Normal [facility] Comment on above: Performed By: #### L 9000.0810 ####[facility] [address] [place], [address] CO2 [Moles/Vol] 29 mmol/L Normal 23-33 [facility] Comment on above: Performed By: #### L 9000.0810 ####[facility] [address] [place], [address] HCO3 (Bld) [Moles/Vol] 28 mmol/L High 22-26 [facility] Comment on above: Performed By: #### L 9000.0810 ####[facility] [address] [place], [address] O2 Delivery Dev Room Air Normal [facility] Comment on above: Performed By: #### L 9000.0810 ####[facility] [address] [place], [address] SITE Not entered Normal [facility] Comment on above: Performed By: #### L 9000.0810 ####[facility] [address] [place], [address] VBG BE 2 mmol/L Normal -1.0-3.5 [facility] Comment on above: Performed By: #### L 9000.0810 ####[facility] [address] [place], [address] VBG pCO2 51.8 mmHg High 41-51 [facility] Comment on above: Performed By: #### L 9000.0810 ####[facility] [address] [place], [address] VBG pH 7.34 Normal 7.32-7.42 [facility] Comment on above: Performed By: #### L 9000.0810 ####[facility] [address] [place], [address] VBG PO2 24 mmHg Low 25-40 [facility] Comment on above: Performed By: #### L 9000.0810 ####[facility] [address] [place], [address] VBG SO2 37 Low 50-70 [facility] Comment on above: Performed By: #### L 9000.0810 ####[facility] [address] [place], [address] Venous blood base excess mine surementOrdered By: Conrado Fraser on 06-30-2024 Base excess Calc (BldV) [Moles/Vol] 2 mmol/L -1.0-3.5 [facility] Venous blood bicarbonate mine surementOrdered By: Conrado Fraser on 06-30-2024 HCO3 (Bld) [Moles/Vol] 28 mmol/L High 22-26 [facility] Venous blood pH measurementO rdered By: Conrado Fraser on 06-30-2024 pH (BldV) 7.34 [pH] 7.32-7.42 [facility] Venous blood partial pressur e of carbon dioxide measurementOrdered By: Conrado Fraser on 06-30-2024 CO2 (BldV) [Partial pressure] 51.8 mm[Hg] High 41-51 [facility] Venous blood partial pressur e of oxygen measurementOrdered By: Conrado Fraser on 06-30-2024 Oxygen (BldV) [Partial pressure] 24 mm[Hg] Low 25-40 [facility] White blood cell countOrdere d By: Narendra Gonzalez on 06-30-2024 White blood cell count 0-5 SEEN /hpf 0-5 [facility] Absolute lymphocyte countOrd ered By: Melonie De La Rosa on 06-28-2024 Lymphocytes Auto (Unsp spec) [#/Vol] 1.11 10*3/uL 0.83-4.51 [facility] Absolute neutrophil countOrd ered By: Melonie De La Rosa on 06-28-2024 Neutrophils (Bld) [#/Vol] 3.5 10*3/uL 2.0-7.7 [facility] Anion gap in Serum or Plasma Ordered By: Melonie De La Rosa on 06-28-2024 Anion gap [Moles/Vol] 7 mmol/L 5-15 [facility] Automated lymphocyte count a s percentage of total leukocytesOrdered By: Melonie De La Rosa on 06-28-2024 Lymphocytes/100 WBC Auto (Unsp spec) 21.1 % 19-41 [facility] BUN/creatinine ratioOrdered By: Melonie De L aRosa on 06-28-2024 Urea nitrogen/Creatinine [Mass ratio] 7.0 mg/mg Low 10- [facility] Basic Metabolic Profile (BMP )on 06-28-2024 BUN/CRE 7.0 RATIO Low - [facility] Comment on above: Performed By: #### L 500.2500, L100.0100 ####[facility] [address] [place], [address] Calcium [Mass/Vol] 7.7 mg/dL Normal 7.6-11.0 [facility] Comment on above: Performed By: #### L 500.2500, L100.0100 ####[facility] [address] [place], [address] Chloride [Moles/Vol] 107 mmol/L Normal 98-108 [facility] Comment on above: Performed By: #### L 500.2500, L100.0100 ####[facility] [address] [place], [address] CO2 [Moles/Vol] 25.1 mmol/L Normal 21.0-32.0 [facility] Comment on above: Performed By: #### L 500.2500, L100.0100 ####[facility] [address] [place], [address] Creatinine [Mass/Vol] 1.11 mg/dL Normal 0.70-1.20 [facility] Comment on above: Performed By: #### L 500.2500, L100.0100 ####[facility] [address] [place], [address] ECRCL 74.04 ml/min Normal 50-250 [facility] Comment on above: Performed By: #### L 500.2500, L100.0100 ####[facility] [address] [place], [address] GAP 7 Normal 5-15 [facility] Comment on above: Performed By: #### L 500.2500, L100.0100 ####[facility] [address] [place], [address] GFR/1.73 sq M.predicted among non-blacks MDRD (S/P/Bld) [Vol rate/Area] 76 mL/min/{1.73_m2} Normal >60 [facility] Comment on above: Result Comment: mL/m in/1.73m2 CKD-EPI Creatinine Equation (2020) Performed By: #### L 500.2500, L100.0100 ####[facility] [address] [place], [address] Glucose [Mass/Vol] 187 mg/dL High 70-99 [facility] Comment on above: Performed By: #### L 500.2500, L100.0100 ####[facility] [address] [place], [address] Potassium [Moles/Vol] 4.1 mmol/L Normal 3.3-5.1 [facility] Comment on above: Result Comment: Hemo lysis present, Results??could be affected.?? Performed By: #### L 500.2500, L100.0100 ####[facility] [address] [place], [address] Sodium [Moles/Vol] 139 mmol/L Normal 133-145 [facility] Comment on above: Performed By: #### L 500.2500, L100.0100 ####[facility] [address] [place], [address] Urea nitrogen [Mass/Vol] 8 mg/dL Normal 4-19 [facility] Comment on above: Performed By: #### L 500.2500, L100.0100 ####[facility] [address] [place], [address] Basophil percentageOrdered B y: Melonie De La Rosa on 06-28-2024 Basophils/100 WBC (Bld) 0.9 % 0-[address] [facility] Bedside Glucoseon 06-28-2024 FINGERSTICK GLU 252 mg/dL High 74-106 [facility] Comment on above: Result Comment: DAYANARA MORENO OF PATIENT CARE PER NURSING PROTOCOL Performed By: #### L 501.080 ####[facility] [address] [place], [address] FINGERSTICK GLU 161 mg/dL High 74-106 [facility] Comment on above: Result Comment: DAYANARA MORENO OF PATIENT CARE PER NURSING PROTOCOL Performed By: #### L 501.080 ####[facility] [address] [place], [address] CBC W/Diff, Automatedon 05-2 Absolute Lymph 1.11 X10 3/uL Normal 0.83-4.51 [facility] Comment on above: Performed By: #### L 500.2500, L100.0100 ####[facility] [address] [place], [address] Absolute Neut 3.5 X10 3/uL Normal 2.0-7.7 [facility] Comment on above: Performed By: #### L 500.2500, L100.0100 ####[facility] [address] [place], [address] Basophils/100 WBC (Bld) 0.9 % Normal 0-[address] [facility] Comment on above: Performed By: #### L 500.2500, L100.0100 ####[facility] [address] [place], [address] Eosinophils/100 WBC (Bld) 0.9 % Normal 0-5 [facility] Comment on above: Performed By: #### L 500.2500, L100.0100 ####[facility] [address] [place], [address] Erythrocyte distribution width (RBC) [Ratio] 17.0 % High 11.6-14.6 [facility] Comment on above: Performed By: #### L 500.2500, L100.0100 ####[facility] [address] [place], [address] Hematocrit (Bld) [Volume fraction] 28.9 % Low 40-54 [facility] Comment on above: Performed By: #### L 500.2500, L100.0100 ####[facility] [address] [place], [address] Hemoglobin (Bld) [Mass/Vol] 9.5 g/dL Low 13.0-16.5 [facility] Comment on above: Performed By: #### L 500.2500, L100.0100 ####[facility] [address] [place], [address] IG% 0.400 Normal 0.0-0.9 [facility] Comment on above: Result Comment: IG% - Immature Granulocytes (promyelocytes, myelocytes andmetamyelocytes) > 1% indicates that a LEFT SHIFT is Present. Performed By: #### L 500.2500, L100.0100 ####[facility] [address] [place], [address] Lymphocytes/100 WBC (Bld) 21.1 % Normal 19-41 [facility] Comment on above: Performed By: #### L 500.2500, L100.0100 ####[facility] [address] [place], [address] MCH (RBC) [Entitic mass] 35.7 pg High 27.0-32.0 [facility] Comment on above: Performed By: #### L 500.2500, L100.0100 ####[facility] [address] [place], [address] MCHC (RBC) [Mass/Vol] 32.9 g/dL Normal 32-36 [facility] Comment on above: Performed By: #### L 500.2500, L100.0100 ####[facility] [address] [place], [address] MCV (RBC) [Entitic vol] 108.6 fL High 80-[address] [facility] Comment on above: Performed By: #### L 500.2500, L100.0100 ####[facility] [address] [place], [address] Monocytes/100 WBC (Bld) 9.9 % Normal 0-[address] [facility] Comment on above: Performed By: #### L 500.2500, L100.0100 ####[facility] [address] [place], [address] Neutrophils/100 WBC (Bld) 66.8 % Normal 47-70 [facility] Comment on above: Performed By: #### L 500.2500, L100.0100 ####[facility] [address] [place], [address] Nucleated RBC (Bld) [#/Vol] 0.4 10*3/uL Normal 0-5 [facility] Comment on above: Performed By: #### L 500.2500, L100.0100 ####[facility] [address] [place], [address] Platelet mean volume (Bld) [Entitic vol] 11.4 fL Normal 6.2-12.0 [facility] Comment on above: Performed By: #### L 500.2500, L100.0100 ####[facility] [address] [place], [address] Platelets (Bld) [#/Vol] 129 10*3/uL Low 150-450 [facility] Comment on above: Performed By: #### L 500.2500, L100.0100 ####[facility] [address] [place], [address] RBC (Bld) [#/Vol] 2.66 10*6/uL Low 4.6-6.2 [facility] Comment on above: Performed By: #### L 500.2500, L100.0100 ####[facility] [address] [place], [address] RDW SD 68.0 fl High 35.1-43.9 [facility] Comment on above: Performed By: #### L 500.2500, L100.0100 ####[facility] [address] [place], [address] WBC (Bld) [#/Vol] 5.3 10*3/uL Normal 4.4-11.0 [facility] Comment on above: Performed By: #### L 500.2500, L100.0100 ####[facility] [address] [place], [address] Carbon dioxide, total [Moles /volume] in Central venous bloodOrdered By: Melonie De La Rosa on 06-28-2024 CO2 [Moles/Vol] 25.1 mmol/L 21.0-32.0 [facility] Chloride assayOrdered By: Anel De La Rosa on 06-28-2024 Chloride [Moles/Vol] 107 mmol/L 98-108 [facility] Eosinophil percentageOrdered By: Melonie De La Rosa on 06-28-2024 Eosinophils/100 WBC (Bld) 0.9 % 0-5 [facility] Erythrocyte distribution wid th ratioOrdered By: Melonie De La Rosa on 06-28-2024 Erythrocyte distribution width (RBC) [Ratio] 17.0 % High 11.6-14.6 [facility] Erythrocyte distribution wid th standard deviationOrdered By: Melonie De La Rosa on 06-28-2024 Erythrocyte distribution width (RBC) [Ratio] 68.0 fl High 35.1-43.9 [facility] Glomerular filtration rate ( GFR) estimation/1.73 sq m using serum, plasma, or whole bOrdered By: Melonie De La Rosa on 06-28-2024 GFR/1.73 sq M.predicted among non-blacks MDRD (S/P/Bld) [Vol rate/Area] 76 mL/min/{1.73_m2} >60 [facility] Comment on above: mL/min/1.73m2 CKD-EP I Creatinine Equation (2020) [facility] deOrdered By: Melonie De La Rosa on 06-28-2024 Glucose [Mass/Vol] 252 mg/dL High 74-106 [facility] Comment on above: MANAGEMENT OF PATIEN T CARE PER NURSING PROTOCOL Hematocrit Auto (Bld) [Volum e fraction]Ordered By: Melonie De La Rosa on 06-28-2024 Hematocrit (Bld) [Volume fraction] 28.9 % Low 40-54 [facility] Hemoglobin measurementOrdere d By: Melonie De La Rosa on 06-28-2024 Hemoglobin (Bld) [Mass/Vol] 9.5 g/dL Low 13.0-16.5 [facility] Immature granulocytes/100 WB C Auto (Bld)Ordered By: Melonie De La Rosa on 06-28-2024 Immature granulocytes/100 WBC (Bld) 0.400 % 0.0-0.9 [facility] Comment on above: IG% - Immature Granu locytes (promyelocytes, myelocytes and metamyelocytes) > 1% indicates that a LEFT SHIFT is Present. MCV (mean corpuscular volume ) determinationOrdered By: Melonie De La Rosa on 06-28-2024 MCV (RBC) [Entitic vol] 108.6 fL High 80-[address] [facility] Mean corpuscular hemoglobin (MCH) determinationOrdered By: Melonie De La Rosa on 06-28-2024 MCH (RBC) [Entitic mass] 35.7 pg High 27.0-32.0 [facility] Mean corpuscular hemoglobin concentration (MCHC) determinationOrdered By: Melonie De La Rosa on 06-28-2024 MCHC (RBC) [Mass/Vol] 32.9 g/dL 32-36 [facility] Mean platelet volume determi nationOrdered By: Melonie De La Rosa on 06-28-2024 Platelet mean volume (Bld) [Entitic vol] 11.4 fL 6.2-12.0 [facility] Monocyte percentageOrdered B y: Melonie De La Rosa on 06-28-2024 Monocytes/100 WBC (Bld) 9.9 % 0-[address] [facility] Neutrophil percentageOrdered By: Melonie De La Rosa on 06-28-2024 Neutrophils/100 WBC (Bld) 66.8 % 47-70 [facility] Nucleated red blood cell per centageOrdered By: Melonie De La Rosa on 06-28-2024 Nucleated RBC/100 WBC (Bld) [Ratio] 0.4 % 0-5 [facility] Platelet countOrdered By: Anel De La Rosa on 06-28-2024 Platelets (Bld) [#/Vol] 129 10*3/uL Low 150-450 [facility] Potassium measurement (mass/ volume)Ordered By: Melonie De La Rosa on 06-28-2024 Potassium (Unsp spec) [Mass/Vol] 4.1 mmol/L 3.3-5.1 [facility] Comment on above: Hemolysis present, R esults could be affected. RBC Auto (Bld) [#/Vol]Ordere d By: Melonie De La Rosa on 06-28-2024 RBC (Bld) [#/Vol] 2.66 10*6/uL Low 4.6-6.2 [facility] Serum creatinine measurement (mass/volume)Ordered By: Melonie De La Rosa on 06-28-2024 Creatinine [Mass/Vol] 1.11 mg/dL 0.70-1.20 [facility] Serum glucose measurement (m ass/volume)Ordered By: Melonie De La Rosa on 06-28-2024 Glucose [Mass/Vol] 187 mg/dL High 70-99 [facility] Serum or plasma calcium luciana urement (mass/volume)Ordered By: Melonie De La Rosa on 06-28-2024 Calcium [Mass/Vol] 7.7 mg/dL 7.6-11.0 [facility] Serum or plasma urea nitroge n measurement (mass/volume)Ordered By: Melonie De La Rosa on 06-28-2024 Urea nitrogen [Mass/Vol] 8 mg/dL 4-19 [facility] Sodium levelOrdered By: Savannah De La Rosa on 06-28-2024 Sodium [Moles/Vol] 139 mmol/L 133-145 [facility] White blood cell (WBC) count Ordered By: Melonie De La Rosa on 06-28-2024 WBC (Bld) [#/Vol] 5.3 10*3/uL 4.4-11.0 [facility] Activated partial thrombopla stin time (aPTT) in platelet poor plasma by coagulation aOrdered By: Carlos Yanes on 06-27-2024 aPTT Coag (PPP) [Time] 30.2 s 24.1-36.2 [facility] Basic Metabolic Profile (BMP )on 06-27-2024 BUN/CRE 6.6 RATIO Low 10-20 [facility] Comment on above: Performed By: #### L 501.5200, L500.2500, L501.2300 ####[facility] [address] [place], [address] Calcium [Mass/Vol] 7.3 mg/dL Low 7.6-11.0 [facility] Comment on above: Performed By: #### L 501.5200, L500.2500, L501.2300 ####[facility] [address] [place], [address] Chloride [Moles/Vol] 109 mmol/L High 98-108 [facility] Comment on above: Performed By: #### L 501.5200, L500.2500, L501.2300 ####[facility] [address] [place], [address] CO2 [Moles/Vol] 25.2 mmol/L Normal 21.0-32.0 [facility] Comment on above: Performed By: #### L 501.5200, L500.2500, L501.2300 ####[facility] [address] [place], [address] Creatinine [Mass/Vol] 1.07 mg/dL Normal 0.70-1.20 [facility] Comment on above: Performed By: #### L 501.5200, L500.2500, L501.2300 ####[facility] [address] [place], [address] ECRCL 77.11 ml/min Normal 50-250 [facility] Comment on above: Performed By: #### L 501.5200, L500.2500, L501.2300 ####[facility] [address] [place], [address] GAP 8 Normal 5-15 [facility] Comment on above: Performed By: #### L 501.5200, L500.2500, L501.2300 ####[facility] [address] [place], [address] GFR/1.73 sq M.predicted among non-blacks MDRD (S/P/Bld) [Vol rate/Area] 79 mL/min/{1.73_m2} Normal >60 [facility] Comment on above: Result Comment: mL/m in/1.73m2 CKD-EPI Creatinine Equation (2020) Performed By: #### L 501.5200, L500.2500, L501.2300 ####[facility] [address] [place], [address] Glucose [Mass/Vol] 134 mg/dL High 70-99 [facility] Comment on above: Performed By: #### L 501.5200, L500.2500, L501.2300 ####[facility] [address] [place], [address] Potassium [Moles/Vol] 3.5 mmol/L Normal 3.3-5.1 [facility] Comment on above: Performed By: #### L 501.5200, L500.2500, L501.2300 ####[facility] [address] [place], [address] Sodium [Moles/Vol] 142 mmol/L Normal 133-145 [facility] Comment on above: Performed By: #### L 501.5200, L500.2500, L501.2300 ####[facility] [address] [place], [address] Urea nitrogen [Mass/Vol] 7 mg/dL Normal 4-19 [facility] Comment on above: Performed By: #### L 501.5200, L500.2500, L501.2300 ####[facility] [address] [place], [address] Bedside Glucoseon 06-27-2024 FINGERSTICK GLU 216 mg/dL High 74-106 [facility] Comment on above: Result Comment: DAYANARA GEMENT OF PATIENT CARE PER NURSING PROTOCOL Performed By: #### L 501.080 ####[facility] [address] [place], [address] FINGERSTICK GLU 122 mg/dL High [address] [place] [address] Comment on above: Result Comment: DAYANARA GEMENT OF PATIENT CARE PER NURSING PROTOCOL Performed By: #### L 501.080 ####[facility] [address] [place], [address] FINGERSTICK GLU 111 mg/dL High [address] [place] [address] Comment on above: Result Comment: DAYANARA GEMENT OF PATIENT CARE PER NURSING PROTOCOL Performed By: #### L 501.080 ####[facility] [address] [place], [address] FINGERSTICK GLU 209 mg/dL High [address] [place] [address] Comment on above: Result Comment: DAYANARA GEMENT OF PATIENT CARE PER NURSING PROTOCOL Performed By: #### L 501.080 ####[facility] [address] [place], [address] FINGERSTICK GLU 131 mg/dL High [address] [place] [address] Comment on above: Result Comment: DAYANARA GEMENT OF PATIENT CARE PER NURSING PROTOCOL Performed By: #### L 501.080 ####[facility] [address] [place], [address] Body Fluid Culton 06-27-2024 BFC Culture exhibits no growth. Normal [facility] Comment on above: Performed By: #### M 100.2000, M100.2900, M100.4001 ####[facility] [address] [place], [address] CBC W/Diff, AutomatedOrdered By: Melonie De La Rosa on 06-27-2024 Anisocytosis Ql (Bld) 1+ Normal [facility] Comment on above: Performed By: #### L 100.0100 ####[facility] [address] [place], [address] Cytology, Body Fluid / CSFon 06-27-2024 CYTOLOGY,BF/CSF SEE PATHOLOGY REPORT Normal [facility] Comment on above: Result Comment: Spec imen submitted to Anatomical Pathology Department fortesting. Performed By: #### L 350.1000 ####[facility] [address] [place], [address] EGD Reporton 06-27-2024 EGD Report Normal [facility] Glucose, Body Fluidon 2024 GLUC, BODY FLD 201 mg/dL Normal Not Establ. [facility] Comment on above: Performed By: #### L 503.0100 ####[facility] [address] [place], [address] Gram Stainon 06-27-2024 GS Gram Stain No organisms seen Normal [facility] Comment on above: Performed By: #### M 100.2000, M100.2900, M100.4001 ####[facility] [address] [place], [address] Immunohistochemical Stainson 06-27-2024 Immunohistochemical Stains Normal [facility] Comment on above: Performed By: #### P IMHI ####[facility] [address] [place], [address] International normalized rat io (INR) calculationOrdered By: Carlos Yanes on 06-27-2024 INR Coag (Bld) [Relative time] 1.4 {INR} [facility] MR/POSTOP.ANEon 06-27-2024 MR/POSTOP.ANE Normal [facility] MR/XMPGAJWR9mp 06-27-2024 MR/POSTOPAN2 Normal [facility] Magnesiumon 06-27-2024 Magnesium [Mass/Vol] 1.5 mg/dL Normal 1.5-2.2 [facility] Comment on above: Performed By: #### L 501.5200, L500.2500, L501.2300 ####[facility] [address] [place], [address] Magnesium measurement (mass/ volume)Ordered By: Melonie De La Rosa on 06-27-2024 Magnesium (Unsp spec) [Mass/Vol] 1.5 mg/dL 1.5-2.2 [facility] No Panel InformationOrdered By: Melonie De La Rosa on 06-27-2024 1+ [facility] Partial Thromboplast Timeon 06-27-2024 aPTT Coag (Bld) [Time] 30.2 s Normal 24.1-36.2 [facility] Comment on above: Performed By: #### L 300.4310, L300.3900 ####[facility] [address] [place], [address] Phosphoruson 06-27-2024 Phosphate [Mass/Vol] 2.7 mg/dL Normal 2.7-4.5 [facility] Comment on above: Performed By: #### L 501.5200, L500.2500, L501.2300 ####[facility] [address] [place], [address] Protein, Body Fluidon 2024 Protein [Mass/Vol] 0.3 g/dL Normal Not Establ. [facility] Comment on above: Performed By: #### L 503.0300 ####[facility] [address] [place], [address] Prothrombin Time w/INRon INR Coag (PPP) [Relative time] 1.4 {INR} Normal [facility] Comment on above: Performed By: #### L 300.4310, L300.3900 ####[facility] [address] [place], [address] Prothrombin timeOrdered By: Carlos Yanes on 06-27-2024 PT Coag (PPP) [Time] 17.4 s High 11.7-14.9 [facility] Comment on above: Performed By: #### L 300.4310, L300.3900 ####[facility] [address] [place], [address] Anaerobic cultureOrdered By: Melonie De La Rosa on 06-26-2024 Bacteria identified Anaer cx Nom (Unsp spec) No growth in 5 days. [facility] Bedside Glucoseon 06-26-2024 FINGERSTICK GLU 201 mg/dL High 74-106 [facility] Comment on above: Result Comment: DAYANARA GEMENT OF PATIENT CARE PER NURSING PROTOCOL Performed By: #### L 501.080 ####[facility] [address] [place], [address] FINGERSTICK GLU 138 mg/dL High 74-106 [facility] Comment on above: Result Comment: DAYANARA GEMENT OF PATIENT CARE PER NURSING PROTOCOL Performed By: #### L 501.080 ####[facility] [address] [place], [address] FINGERSTICK GLU 172 mg/dL High -106 [facility] Comment on above: Result Comment: DAYANARA GEMENT OF PATIENT CARE PER NURSING PROTOCOL Performed By: #### L 501.080 ####[facility] [address] [place], [address] FINGERSTICK GLU 197 mg/dL High 74-106 [facility] Comment on above: Result Comment: DAYANARA GEMENT OF PATIENT CARE PER NURSING PROTOCOL Performed By: #### L 501.080 ####[facility] [address] [place], [address] Bilirubin directOrdered By: Carlos Yanes on 06-26-2024 Bilirubin.direct [Mass/Vol] 0.23 mg/dL 0.00-0.30 [facility] Bilirubin, totalOrdered By: Carlos Yanes on 06-26-2024 Bilirubin [Mass/Vol] 0.42 mg/dL 0.00-1.30 [facility] Body fluid appearance (nomin al result)Ordered By: Melonie De La Rosa on 06-26-2024 Appearance (Body fld) CLEAR [facility] Body fluid color determinati onOrdered By: Melonie De La Rosa on 06-26-2024 Color (Body fld) YELLOW [facility] Body fluid cultureOrdered By : Melonie De La Rosa on 06-26-2024 Microbial culture, body fluid Culture exhibits no growth. [facility] Body fluid leukocytes count (number/volume)Ordered By: Melonie De La Rosa on 06-26-2024 WBC (Body fld) [#/Vol] 0.010 10*3/uL [facility] Body fluid lymphocytes/100 l eukocytesOrdered By: Melonie De La Rosa on 06-26-2024 Lymphocytes/100 WBC (Body fld) 17 % [facility] Body fluid macrophage countO rdered By: Melonie De La Rosa on 06-26-2024 Macrophages (Body fld) [#/Vol] 56 % [facility] Body fluid mesothelial cell percentageOrdered By: Melonie De La Rosa on 06-26-2024 Mesothelial cells/100 WBC (Body fld) 21 % [facility] Body fluid mononuclear cell percentageOrdered By: Melonie De La Rosa on 06-26-2024 Mononuclear cells/100 WBC (Body fld) 90.0 % [facility] Body fluid protein measureme nt (mass/volume)Ordered By: Melonie De La Rosa on 06-26-2024 Protein (Body fld) [Mass/Vol] 0.3 g/dL Not Establ. [facility] Body fluid segmented neutrop hils count (number/volume)Ordered By: Melonie De La Rosa on 06-26-2024 Segmented neutrophils (Body fld) [#/Vol] 6 % [facility] Body fluid total cell countO rdered By: Melonie De La Rosa on 06-26-2024 Cells Counted Total (Body fld) [#] 0.012 10^3/ul [facility] Comment on above: This is the Total Nu mber of Nucleated Cell Types in the Body Fluid. CBC W/Diff, Automatedon 06-08 Absolute Lymph 0.89 X10 3/uL Normal 0.83-4.51 [facility] Comment on above: Performed By: #### L 500.4050, L100.0100, L501.9520, L501.2300, L500.4100 ####[facility] [address] [place], [address] Absolute Neut 3.3 X10 3/uL Normal 2.0-7.7 [facility] Comment on above: Performed By: #### L 500.4050, L100.0100, L501.9520, L501.2300, L500.4100 ####[facility] [address] [place], [address] Basophils/100 WBC (Bld) 0.8 % Normal 0-[address] [facility] Comment on above: Performed By: #### L 500.4050, L100.0100, L501.9520, L501.2300, L500.4100 ####[facility] [address] [place], [address] Eosinophils/100 WBC (Bld) 0.4 % Normal 0-5 [facility] Comment on above: Performed By: #### L 500.4050, L100.0100, L501.9520, L501.2300, L500.4100 ####[facility] [address] [place], [address] Erythrocyte distribution width (RBC) [Ratio] 16.3 % High 11.6-14.6 [facility] Comment on above: Performed By: #### L 500.4050, L100.0100, L501.9520, L501.2300, L500.4100 ####[facility] [address] [place], [address] Hematocrit (Bld) [Volume fraction] 27.1 % Low 40-54 [facility] Comment on above: Performed By: #### L 500.4050, L100.0100, L501.9520, L501.2300, L500.4100 ####[facility] [address] [place], [address] Hemoglobin (Bld) [Mass/Vol] 9.3 g/dL Low 13.0-16.5 [facility] Comment on above: Performed By: #### L 500.4050, L100.0100, L501.9520, L501.2300, L500.4100 ####[facility] [address] [place], [address] IG% 0.200 Normal 0.0-0.9 [facility] Comment on above: Result Comment: IG% - Immature Granulocytes (promyelocytes, myelocytes andmetamyelocytes) > 1% indicates that a LEFT SHIFT is Present. Performed By: #### L 500.4050, L100.0100, L501.9520, L501.2300, L500.4100 ####[facility] [address] [place], [address] Lymphocytes/100 WBC (Bld) 18.4 % Low 19-41 [facility] Comment on above: Performed By: #### L 500.4050, L100.0100, L501.9520, L501.2300, L500.4100 ####[facility] [address] [place], [address] MCH (RBC) [Entitic mass] 36.3 pg High 27.0-32.0 [facility] Comment on above: Performed By: #### L 500.4050, L100.0100, L501.9520, L501.2300, L500.4100 ####[facility] [address] [place], [address] MCHC (RBC) [Mass/Vol] 34.3 g/dL Normal 32-36 [facility] Comment on above: Performed By: #### L 500.4050, L100.0100, L501.9520, L501.2300, L500.4100 ####[facility] [address] [place], [address] MCV (RBC) [Entitic vol] 105.9 fL High 80-[address] [facility] Comment on above: Performed By: #### L 500.4050, L100.0100, L501.9520, L501.2300, L500.4100 ####[facility] [address] [place], [address] Monocytes/100 WBC (Bld) 11.8 % High 0-[address] [facility] Comment on above: Performed By: #### L 500.4050, L100.0100, L501.9520, L501.2300, L500.4100 ####[facility] [address] [place], [address] Neutrophils/100 WBC (Bld) 68.4 % Normal 47-70 [facility] Comment on above: Performed By: #### L 500.4050, L100.0100, L501.9520, L501.2300, L500.4100 ####[facility] [address] [place], [address] Nucleated RBC (Bld) [#/Vol] 0 10*3/uL Normal 0-5 [facility] Comment on above: Performed By: #### L 500.4050, L100.0100, L501.9520, L501.2300, L500.4100 ####[facility] [address] [place], [address] Platelet mean volume (Bld) [Entitic vol] 11.6 fL Normal 6.2-12.0 [facility] Comment on above: Performed By: #### L 500.4050, L100.0100, L501.9520, L501.2300, L500.4100 ####[facility] [address] [place], [address] Platelets (Bld) [#/Vol] 100 10*3/uL Low 150-450 [facility] Comment on above: Performed By: #### L 500.4050, L100.0100, L501.9520, L501.2300, L500.4100 ####[facility] [address] [place], [address] RBC (Bld) [#/Vol] 2.56 10*6/uL Low 4.6-6.2 [facility] Comment on above: Performed By: #### L 500.4050, L100.0100, L501.9520, L501.2300, L500.4100 ####[facility] [address] [place], [address] RDW SD 63.6 fl High 35.1-43.9 [facility] Comment on above: Performed By: #### L 500.4050, L100.0100, L501.9520, L501.2300, L500.4100 ####[facility] [address] [place], [address] WBC (Bld) [#/Vol] 4.8 10*3/uL Normal 4.4-11.0 [facility] Comment on above: Performed By: #### L 500.4050, L100.0100, L501.9520, L501.2300, L500.4100 ####[facility] [address] [place], [address] CDIFF (PCR)on 06-26-2024 CDIFF Normal [facility] Comment on above: Performed By: #### M 100.0605, M100.6796, M100.637 ####[facility] [address] [place], [address] CNPChanel 06-26-2024 STEPHANIEN Telephone (KI) DARRINANALILIA VERNON ([id number]) 1960 M Date Time Provider Department 06/26/24 [...] in. Please advise. FLORENTINO Jackson Brittny A, VIRIDIANA.[facility] 06/26/2024 9:57 AM Signed Will address in next OV. Allergies As of Date: 06/26/2024 (No Known Allergies) Date Reviewed: 04/12/2024 Reviewed by: Vandana Edwards - Fully Assessed Reason for Visit: Lab Orders [1688] Prescriptions as of 06/26/2024 - UNIFINE PENTIPS [...] fourteen (14) days to upper arm. - vvgong-khckxgkp-mlcsjuk (CREON 36) 36,000-114,000- 180,000 unit delayed release capsule Take 2 pills by mouth with first bite of meal and take 1 pill with snacks. Max 10 per day. - Cholecalciferol, Vitamin D3, (VITAMIN D-3) 50 mcg (2,000 unit) cap Take 1 capsule by mouth once daily. 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 Normal [facility] Calculated very low density lipoprotein (VLDL) cholesterol measurementOrdered By: Conrado Fraser on 06-26-2024 Calculated very low density lipoprotein (VLDL) cholesterol measurement 18 mg/dL 5-40 [facility] Comprehensive Metabolic Prof ilon 06-26-2024 Albumin [Mass/Vol] 2.1 g/dL Low 3.4-4.8 [facility] Comment on above: Performed By: #### L 500.4050, L100.0100, L501.9520, L501.2300, L500.4100 ####[facility] [address] [place], [address] Albumin/Globulin [Mass ratio] 1.0 {ratio} Normal 0.9-2.4 [facility] Comment on above: Performed By: #### L 500.4050, L100.0100, L501.9520, L501.2300, L500.4100 ####[facility] [address] [place], [address] ALK PHOS 102 U/L Normal 40-129 [facility] Comment on above: Performed By: #### L 500.4050, L100.0100, L501.9520, L501.2300, L500.4100 ####[facility] [address] [place], [address] ALT [Catalytic activity/Vol] 26 U/L Normal <=46 [facility] Comment on above: Performed By: #### L 500.4050, L100.0100, L501.9520, L501.2300, L500.4100 ####[facility] [address] [place], [address] AST [Catalytic activity/Vol] 49 U/L High <=37 [facility] Comment on above: Performed By: #### L 500.4050, L100.0100, L501.9520, L501.2300, L500.4100 ####[facility] [address] [place], [address] Bilirubin [Mass/Vol] 0.42 mg/dL Normal 0.00-1.30 [facility] Comment on above: Performed By: #### L 500.4050, L100.0100, L501.9520, L501.2300, L500.4100 ####[facility] [address] [place], [address] BUN/CRE 6.5 RATIO Low 10-20 [facility] Comment on above: Performed By: #### L 500.4050, L100.0100, L501.9520, L501.2300, L500.4100 ####[facility] [address] [place], [address] Calcium [Mass/Vol] 7.1 mg/dL Low 7.6-11.0 [facility] Comment on above: Performed By: #### L 500.4050, L100.0100, L501.9520, L501.2300, L500.4100 ####[facility] [address] [place], [address] Chloride [Moles/Vol] 107 mmol/L Normal 98-108 [facility] Comment on above: Performed By: #### L 500.4050, L100.0100, L501.9520, L501.2300, L500.4100 ####[facility] [address] [place], [address] CO2 [Moles/Vol] 24.9 mmol/L Normal 21.0-32.0 [facility] Comment on above: Performed By: #### L 500.4050, L100.0100, L501.9520, L501.2300, L500.4100 ####[facility] [address] [place], [address] Creatinine [Mass/Vol] 0.97 mg/dL Normal 0.70-1.20 [facility] Comment on above: Performed By: #### L 500.4050, L100.0100, L501.9520, L501.2300, L500.4100 ####[facility] [address] [place], [address] ECRCL 84.27 ml/min Normal 50-250 [facility] Comment on above: Performed By: #### L 500.4050, L100.0100, L501.9520, L501.2300, L500.4100 ####[facility] [address] [place], [address] GAP 10 Normal 5-15 [facility] Comment on above: Performed By: #### L 500.4050, L100.0100, L501.9520, L501.2300, L500.4100 ####[facility] [address] [place], [address] GFR/1.73 sq M.predicted among non-blacks MDRD (S/P/Bld) [Vol rate/Area] 88 mL/min/{1.73_m2} Normal >60 [facility] Comment on above: Result Comment: mL/m in/1.73m2 CKD-EPI Creatinine Equation (2020) Performed By: #### L 500.4050, L100.0100, L501.9520, L501.2300, L500.4100 ####[facility] [address] [place], [address] Globulin (S) [Mass/Vol] 2.1 g/dL Low 2.2-4.[address] [facility] Comment on above: Performed By: #### L 500.4050, L100.0100, L501.9520, L501.2300, L500.4100 ####[facility] [address] [place], [address] Glucose [Mass/Vol] 180 mg/dL High 70-99 [facility] Comment on above: Performed By: #### L 500.4050, L100.0100, L501.9520, L501.2300, L500.4100 ####[facility] [address] [place], [address] Potassium [Moles/Vol] 2.7 mmol/L Invalid Interpretation Code 3.3-5.1 [facility] Comment on above: Result Comment: Crit ical Result(s) Called at 0735: by: ESTEFANY GOLDMAN. ??Results read back by same. Performed By: #### L 500.4050, L100.0100, L501.9520, L501.2300, L500.4100 ####[facility] [address] [place], [address] Sodium [Moles/Vol] 142 mmol/L Normal 133-145 [facility] Comment on above: Performed By: #### L 500.4050, L100.0100, L501.9520, L501.2300, L500.4100 ####[facility] [address] [place], [address] T PROT 4.3 g/dL Low 5.9-8.4 [facility] Comment on above: Performed By: #### L 500.4050, L100.0100, L501.9520, L501.2300, L500.4100 ####[facility] [address] [place], [address] Urea nitrogen [Mass/Vol] 6 mg/dL Normal 4-19 [facility] Comment on above: Performed By: #### L 500.4050, L100.0100, L501.9520, L501.2300, L500.4100 ####[facility] [address] [place], [address] Cytology report of Body flui d Cyto stainOrdered By: Melonie De La Rosa on 06-26-2024 Cytology report Cyto stain Doc (Body fld) SEE PATHOLOGY REPORT [facility] ENTERIC PATHOGEN PANEL STOOL on 06-26-2024 EP PANEL Normal [facility] Comment on above: Performed By: #### M 100.0605, M100.6796, M100.637 ####[facility] [address] [place], [address] Electrocardiogram reportOrde red By: Trung Bob on 06-26-2024 EKG study [facility] [address] [place] [address] 12 Lead EKG 06/25/24 1935 MR#: [id number] Acct: [id number] Name: ANALILIA MELENDREZ Rep #:[id number] : 1960 63 From: Trung Bob MD Attending Dr: DO Yesi Looney tatus: ADM IN Ordering Dr: Rolan Romero ate: 06/25/24 Location: [facility] Sex: M C Admitted: 06/25/24 Test Reason [...] ECG Confirmed by TRUNG BOB MD ([id number]), news videotape editor CARLOS ROBLES ([id number]) on 06/26/2024 9:28:17 AM Referred By: Rolan Romero Confirmed By: TRUNG BOB MD 06/26/2428 Date _ Trung Bob MD CC: ALAN Wagner; Dr. Rolan Romero DO; Dr. Melonie De La Rosa DO ~ Signed [facility] Work Phone: Gram stainOrdered By: Palak De La Rosa on 06-26-2024 Microscopic observation Gram stain Nom (Unsp spec) [facility] Hemoglobin A1con 06-26-2024 HbA1c (Bld) [Mass fraction] 6.6 % High <=5.6 [facility] Comment on above: Result Comment: Norm al < 5.7 % Prediabetic 5.7 - 6.4 % Diabetic >or= 6.5 % Please note range changes. Performed By: #### L 501.9985, L503.6005, L505.5000, M600.5000, L501.5200 ####[facility] [address] [place], [place], [address] LDL calc ser/plasOrdered By: Conrado Fraser on 06-26-2024 Cholesterol in LDL [Mass/Vol] 24 mg/dL [facility] Comment on above: Uuockweugk=037-613 m g/dL & Higher Gyjo=413 mg/dL or greater Result Comment: Bord zpjvmh=098-990 mg/dL Higher Htjd=191 mg/dL or greater Performed By: #### L 500.4050, L100.0100, L501.9520, L501.2300, L500.4100 ####[facility] [address] [place], [address] Laboratory - Chemistry and C hemistry - challengeOrdered By: Carlos Yanes on 06-26-2024 AST [Catalytic activity/Vol] 49 U/L High <38 [facility] Lactic Acidon 06-26-2024 Lactate [Moles/Vol] 3.1 mmol/L Invalid Interpretation Code 0.0-2.0 [facility] Comment on above: Result Comment: Crit ical Result(s) Called at 0745: by: ESTEFANY GOLDMAN. ??Results read back by same. Performed By: #### L 503.6005 ####[facility] [address] [place], [address] Lactate [Moles/Vol] 4.7 mmol/L Invalid Interpretation Code 0.0-2.0 [facility] Comment on above: Order Comment: Y Result Comment: Crit ical Result(s) Called at: 06/26/2024-02:50 by: Khushi to Ann-Marie Linda.??Results read back by same. Performed By: #### L 501.9985, L503.6005, L505.5000, M600.5000, L501.5200 ####[facility] [address] [place], [address] Lactic acid measurementOrder ed By: Conrado Fraser on 06-26-2024 Lactate [Moles/Vol] 3.1 mmol/L High 0.0-2.0 [facility] Comment on above: Critical Result(s) C alled at 0745: by: ESTEFANY WHITTEN TO [facility]. Results read back by same. Lipid Profileon 06-26-2024 CHOL:HDL 2.29 Normal [facility] Comment on above: Performed By: #### L 500.4050, L100.0100, L501.9520, L501.2300, L500.4100 ####[facility] [address] [place], [address] Cholesterol in VLDL [Mass/Vol] 18 mg/dL Normal 5-40 [facility] Comment on above: Performed By: #### L 500.4050, L100.0100, L501.9520, L501.2300, L500.4100 ####[facility] [address] [place], [address] Liver Profileon 06-26-2024 Albumin [Mass/Vol] 2.0 g/dL Low 3.4-4.8 [facility] Comment on above: Performed By: #### L 500.3400 ####[facility] [address] [place], [address] ALK PHOS 99 U/L Normal 40-129 [facility] Comment on above: Performed By: #### L 500.3400 ####[facility] [address] [place], [address] ALT [Catalytic activity/Vol] 27 U/L Normal <=46 [facility] Comment on above: Performed By: #### L 500.3400 ####[facility] [address] [place], [address] AST [Catalytic activity/Vol] 49 U/L High <=37 [facility] Comment on above: Performed By: #### L 500.3400 ####[facility] [address] [place], [address] Bilirubin [Mass/Vol] 0.42 mg/dL Normal 0.00-1.30 [facility] Comment on above: Performed By: #### L 500.3400 ####[facility] [address] [place], [address] Bilirubin.direct [Mass/Vol] 0.23 mg/dL Normal 0.00-0.30 [facility] Comment on above: Performed By: #### L 500.3400 ####[facility] [address] [place], [address] Globulin (S) [Mass/Vol] 2.2 g/dL Normal 2.2-4.[address] [facility] Comment on above: Performed By: #### L 500.3400 ####[facility] [address] [place], [address] T PROT 4.2 g/dL Low 5.9-8.4 [facility] Comment on above: Performed By: #### L 500.3400 ####[facility] [address] [place], [address] MR/CON.PCM.GIon 06-26-2024 MR/CON.PCM.GI Normal [facility] Magnesiumon 05-19-2025 Magnesium [Mass/Vol] 1.8 mg/dL Normal 1.5-2.2 [facility] Comment on above: Performed By: #### L 501.9985, L503.6005, L505.5000, M600.5000, L501.5200 ####[facility] [address] [place], [place], [id number] No Panel InformationOrdered By: Melonie De La Rosa on 06-26-2024 Body Fluid Comment 2 SEE COMMENT [facility] Comment on above: .INTERPRETATION OF R ESULTS: Differentiation of transudate and exudate fluid: TRANSUDATE EXUDATE Color- Clear,straw colored Clear,turbid,bloody,purulent RBCs- Usually none to few Often present in high numbers WBCs- Usually none to few Often present in high numbers DIFF Few lymphocytes or Lymphocytes, neutrophils, andCount- mesothelial cells. polymorphonuclear cells . Body Fluid RBC 35 /mm3 [facility] 35 /mm3 [facility] SEE COMMENT [facility] No Panel InformationOrdered By: Carlos Yanes on 06-26-2024 49 U/L High <38 [facility] Paracentesis with USon 06-26 Paracentesis with US Normal [facility] Pathologist interpretation o f Body fluid testsOrdered By: Melonie De La Rosa on 06-26-2024 Pathologist interpretation (Body fld) [Interp] May follow [facility] Pathologist interpretation (Body fld) [Interp] Reviewed [facility] Phosphoruson 06-26-2024 Phosphate [Mass/Vol] 2.3 mg/dL Low 2.7-4.5 [facility] Comment on above: Performed By: #### L 500.4050, L100.0100, L501.9520, L501.2300, L500.4100 ####[facility] [address] [place], [address] Screening total cholesterol/ high density lipoprotein (HDL) cholesterol ratioOrdered By: Conrado Fraser on 06-26-2024 Cholesterol.total/Livia sterol in HDL [Mass ratio] 2.29 {ratio} [facility] Serum globulin measurementOr dered By: Carlos Yanes on 06-26-2024 Globulin (S) [Mass/Vol] 2.2 g/dL 2.2-4.[address] [facility] Serum or plasma alanine padilla otransferase (ALT) measurementOrdered By: Carlos Yanes on 06-26-2024 ALT [Catalytic activity/Vol] 27 U/L <47 [facility] Serum or plasma albumin luciana urement (mass/volume)Ordered By: Carlos Yanes on 06-26-2024 Albumin [Mass/Vol] 2.0 g/dL Low 3.4-4.8 [facility] Serum or plasma albumin/glob ulin mass ratioOrdered By: Conrado Fraser on 06-26-2024 Albumin/Globulin [Mass ratio] 1.0 {ratio} 0.9-2.4 [facility] Serum or plasma alkaline nolan sphatase measurementOrdered By: Carlos Yanes on 06-26-2024 ALP [Catalytic activity/Vol] 99 U/L 40-129 [facility] Serum or plasma cholesterol in HDL measurement (mass/volume)Ordered By: Conrado Fraser on 06-26-2024 Cholesterol in HDL [Mass/Vol] 32 mg/dL Low >40 [facility] Comment on above: National Cholesterol Education [...] age. Performed By: #### L 500.4050, L100.0100, L501.3820, L501.2300, L500.4100 ####[facility] [address] [place], [address] Serum or plasma cholesterol measurement (mass/volume)Ordered By: Conrado Fraser on 06-26-2024 Cholesterol [Mass/Vol] 74 mg/dL <201 [facility] Comment on above: Cholesterol level, D esirable <200 mg/dLBorderline high cholesterol 200-239 mg/dLHigh cholesterol >=240 mg/dLRecommendations of the NCEP Adult Treatment Panel for the following risk-cutoff thresholds for the [place] population. Result Comment: Chol esterol level, Desirable <200 mg/dLBorderline high cholesterol 200-239 mg/dLHigh cholesterol >=240 mg/dLRecommendations of the NCEP Adult Treatment Panel for thefollowing risk-cutoff thresholds for the [place] Americanpopulation. Performed By: #### L 500.4050, L100.0100, L501.9520, L501.2300, L500.4100 ####[facility] [address] [place], [place], [address] Special Stain Group IIon Special Stain Group II Normal [facility] Comment on above: Performed By: #### P SSII ####[facility] [address] [place], [place], [id number] Specimen source identificati on of body fluidOrdered By: Melonie De La Rosa on 06-26-2024 Specimen source Nom (Body fld) PARACENTESIS [facility] Stool Lactoferrin/WBCon 06-08 WBCST Is the patient receiving laxatives? N Normal Reference Range = Negative Fecal WBC Lactoferrin Negative: No Fecal WBC Lactoferrin present Normal [facility] Comment on above: Performed By: #### M 100.0605, M100.6796, M100.637 ####[facility] [address] [place], [place], [id number] TSH DL <= 0.005 mIU/L QnOrde red By: Conrado Fraser on 06-26-2024 TSH Qn 1.740 uIU/mL 0.300-4.200 [facility] Thyroid Stim Hormone (TSH)on 06-26-2024 TSH 1.740 uIU/mL Normal 0.300-4.200 [facility] Comment on above: Performed By: #### L 500.4050, L100.0100, L501.9520, L501.2300, L500.4100 ####[facility] [address] [place], [place], [address] Total proteinOrdered By: Carlos Yanes on 06-26-2024 Protein [Mass/Vol] 4.2 g/dL Low 5.9-8.4 [facility] Triglycerides measurementOrd ered By: Conrado Fraser on 06-26-2024 Triglyceride [Mass/Vol] 89 mg/dL Normal [facility] Comment on above: The drugs N-Acetylcy steine and Metamizole may falsely depress this assay. Normal range: <150 mg/dLBorderline High: 150-199 mg/dLHigh: 200-499 mg/dLVery High: >500 mg/dL Result Comment: The drugs N-Acetylcysteine and Metamizole may falselydepress this assay.Normal range: <150 mg/dLBorderline High: 150-199 mg/dLHigh: 200-499 mg/dLVery High: >500 mg/dL Performed By: #### L 500.4050, L100.0100, L501.9520, L501.2300, L500.4100 ####[facility] [address] [place], [place], [id number] Urine Drug Screen (VISTA)on 06-26-2024 AMPHETAMINES Negative Normal <1000 ng/mL [facility] Comment on above: Performed By: #### L 501.9985, L503.6005, L505.5000, M600.5000, L501.5200 ####[facility] [address] [place], [place], [id number] BARBITIURATES Negative Normal < 200 ng/mL [facility] Comment on above: Performed By: #### L 501.9985, L503.6005, L505.5000, M600.5000, L501.5200 ####[facility] [address] [place], [address] BENZODIAZIPINE Negative Normal < 200 ng/mL [facility] Comment on above: Performed By: #### L 501.9985, L503.6005, L505.5000, M600.5000, L501.5200 ####[facility] [address] [place], [place], [phone] BUP Ur Drug Scr Negative Normal < 200 ng/mL [facility] Comment on above: Performed By: #### L 501.9985, L503.6005, L505.5000, M600.5000, L501.5200 ####[facility] [address] [place], [phone] COCAINE Negative Normal < 300 ng/mL [facility] Comment on above: Performed By: #### L 501.9985, L503.6005, L505.5000, M600.5000, L501.5200 ####[facility] [address] [place], [phone] Fentanyl Negative Normal [facility] Comment on above: Performed By: #### L 501.9985, L503.6005, L505.5000, M600.5000, L501.5200 ####[facility] [address] [place], [phone] METHADONE Negative Normal < 300 ng/mL [facility] Comment on above: Performed By: #### L 501.9985, L503.6005, L505.5000, M600.5000, L501.5200 ####[facility] [address] [place] [address] OPIATES Negative Normal < 300 ng/mL [facility] Comment on above: Performed By: #### L 501.9985, L503.6005, L505.5000, M600.5000, L501.5200 ####[facility] [address] [place], [address] OXYCODONE Negative Normal < 100 ng/mL [facility] Comment on above: Performed By: #### L 501.9985, L503.6005, L505.5000, M600.5000, L501.5200 ####[facility] [address] [place], [address] PCP Negative Normal < 25 ng/mL [facility] Comment on above: Performed By: #### L 501.9985, L503.6005, L505.5000, M600.5000, L501.5200 ####[facility] [address] [place], [address] THC Negative Normal < 50 ng/mL [facility] Comment on above: Performed By: #### L 501.9985, L503.6005, L505.5000, M600.5000, L501.5200 ####[facility] [address] [place], [address] 12 Lead EKGon 06-25-2024 12 Lead EKG Normal [facility] Abdomen/Pelvis W IV Cont ONL Yon 06-25-2024 Abdomen/Pelvis W IV Cont ONLY Normal [facility] Absolute lymphocyte countOrd ered By: Rolan KlkarinaKai on 06-25-2024 Lymphocytes Auto (Unsp spec) [#/Vol] 1.05 10*3/uL 0.83-4.51 [facility] Absolute neutrophil countOrd ered By: [facility] Neutrophils (Bld) [#/Vol] 3.1 10*3/uL 2.0-7.7 [facility] Alcohol, Blood (Medical)-Ser umon 06-25-2024 SERUM ETOH < 10.1 Normal <=10.0 [facility] Comment on above: Result Comment: This test is for medical purposes only. The legaldefinition of intoxication varies according to local law. Performed By: #### L 501.9100 ####[facility] [address] [place], [address] Amphetamine detection with 1 000 ng/mL as cutoffOrdered By: Conrado Fraser on 06-25-2024 Amphetamines Screen method >1000 ng/mL Ql (U) Negative < 200 ng/mL [facility] Anion gap in Serum or Plasma Ordered By: Rolanagustin Romero on 06-25-2024 Anion gap [Moles/Vol] 16 mmol/L High 5-15 [facility] Automated lymphocyte count a s percentage of total leukocytesOrdered By: [facility] on 06-25-2024 Lymphocytes/100 WBC Auto (Unsp spec) 22.1 % 19-41 [facility] BUN/creatinine ratioOrdered By: [facility] 06-25-2024 Urea nitrogen/Creatinine [Mass ratio] 6.5 mg/mg Low 10-20 [facility] Basophil percentageOrdered B y: Rolan AlmendarezKai on 06-25-2024 Basophils/100 WBC (Bld) 0.6 % 0-[address] [facility] Bedside Glucoseon 06-25-2024 FINGERSTICK GLU 277 mg/dL High 74-106 [facility] Comment on above: Result Comment: DAYANARA GEMENT OF PATIENT CARE PER NURSING PROTOCOL Performed By: #### L 501.080 ####[facility] [address] [place], [address] FINGERSTICK GLU 348 mg/dL High 74-106 [facility] Comment on above: Result Comment: DAYANARA GEMENT OF PATIENT CARE PER NURSING PROTOCOL Performed By: #### L 501.080 ####[facility] [address] [place], [address] Beta-Hydroxbytyrateon 2024 BETA-HYDROXYBUT 0.1 mmol/L Normal 0.0-0.3 [facility] Comment on above: Performed By: #### L 501.5600, L501.6901, L501.5200 ####[facility] [address] [place], [address] Beta-hydroxybutyrateOrdered By: Rolan Romero on 06-25-2024 Beta hydroxybutyrate [Mass/Vol] 0.1 mmol/L 0.0-0.3 [facility] Bilirubin Test strip Ql (U)O rdered By: Rolan Romero on 06-25-2024 Bilirubin Ql (U) Negative Negative [facility] Bilirubin, totalOrdered By: Rolan Romero on 06-25-2024 Bilirubin [Mass/Vol] 0.46 mg/dL 0.00-1.30 [facility] CBC W/Diff, Automatedon 06-08 Absolute Lymph 1.05 X10 3/uL Normal 0.83-4.51 [facility] Comment on above: Performed By: #### L 100.0100 ####[facility] [address] [place], [address] Absolute Neut 3.1 X10 3/uL Normal 2.0-7.7 [facility] Comment on above: Performed By: #### L 100.0100 ####[facility] [address] [place], [address] Basophils/100 WBC (Bld) 0.6 % Normal 0-[address] [facility] Comment on above: Performed By: #### L 100.0100 ####[facility] [address] [place], [address] Eosinophils/100 WBC (Bld) 0.2 % Normal 0-5 [facility] Comment on above: Performed By: #### L 100.0100 ####[facility] [address] [place], [address] Erythrocyte distribution width (RBC) [Ratio] 16.2 % High 11.6-14.6 [facility] Comment on above: Performed By: #### L 100.0100 ####[facility] [address] [place], [address] Hematocrit (Bld) [Volume fraction] 29.8 % Low 40-54 [facility] Comment on above: Performed By: #### L 100.0100 ####[facility] [address] [place], [address] Hemoglobin (Bld) [Mass/Vol] 10.1 g/dL Low 13.0-16.5 [facility] Comment on above: Performed By: #### L 100.0100 ####[facility] [address] [place], [address] IG% 0.200 Normal 0.0-0.9 [facility] Comment on above: Result Comment: IG% - Immature Granulocytes (promyelocytes, myelocytes andmetamyelocytes) > 1% indicates that a LEFT SHIFT is Present. Performed By: #### L 100.0100 ####[facility] [address] [place], [address] Lymphocytes/100 WBC (Bld) 22.1 % Normal 19-41 [facility] Comment on above: Performed By: #### L 100.0100 ####[facility] [address] [place], [address] MCH (RBC) [Entitic mass] 36.1 pg High 27.0-32.0 [facility] Comment on above: Performed By: #### L 100.0100 ####[facility] [address] [place], [address] MCHC (RBC) [Mass/Vol] 33.9 g/dL Normal 32-36 [facility] Comment on above: Performed By: #### L 100.0100 ####[facility] [address] [place], [address] MCV (RBC) [Entitic vol] 106.4 fL High 80-[address] [facility] Comment on above: Performed By: #### L 100.0100 ####[facility] [address] [place], [address] Monocytes/100 WBC (Bld) 11.6 % High 0-[address] [facility] Comment on above: Performed By: #### L 100.0100 ####[facility] [address] [place], [address] Neutrophils/100 WBC (Bld) 65.3 % Normal 47-70 [facility] Comment on above: Performed By: #### L 100.0100 ####[facility] [address] [place], [address] Nucleated RBC (Bld) [#/Vol] 0 10*3/uL Normal 0-5 [facility] Comment on above: Performed By: #### L 100.0100 ####[facility] [address] [place], [address] Platelet mean volume (Bld) [Entitic vol] 11.8 fL Normal 6.2-12.0 [facility] Comment on above: Performed By: #### L 100.0100 ####[facility] [address] [place], [address] Platelets (Bld) [#/Vol] 124 10*3/uL Low 150-450 [facility] Comment on above: Performed By: #### L 100.0100 ####[facility] [address] [place], [address] RBC (Bld) [#/Vol] 2.80 10*6/uL Low 4.6-6.2 [facility] Comment on above: Performed By: #### L 100.0100 ####[facility] [address] [place], [address] RDW SD 63.9 fl High 35.1-43.9 [facility] Comment on above: Performed By: #### L 100.0100 ####[facility] [address] [place], [address] WBC (Bld) [#/Vol] 4.8 10*3/uL Normal 4.4-11.0 [facility] Comment on above: Performed By: #### L 100.0100 ####[facility] [address] [place], [address] Absolute Neut Normal 2.0-7.7 [facility] Comment on above: Result Comment: clot nellie, spoke with ayden Performed By: #### L 500.4050, L503.6005, L100.0100, L501.2450 ####[facility] [address] [place], [address] HCT Normal 40-54 [facility] Comment on above: Result Comment: nigel ballard, spoke with ayden Performed By: #### L 500.4050, L503.6005, L100.0100, L501.2450 ####[facility] [address] [place], [address] HGB Normal 13.0-16.5 [facility] Comment on above: Result Comment: clot nellie, spoke with ayden Performed By: #### L 500.4050, L503.6005, L100.0100, L501.2450 ####[facility] [address] [place], [address] MCH Normal 27.0-32.0 [facility] Comment on above: Result Comment: clot nellie, spoke with ayden Performed By: #### L 500.4050, L503.6005, L100.0100, L501.2450 ####[facility] [address] [place], [address] MCHC Normal 32-36 [facility] Comment on above: Result Comment: clot nellie, spoke with ayden Performed By: #### L 500.4050, L503.6005, L100.0100, L501.2450 ####[facility] [address] [place], [address] MCV Normal 80-94 [facility] Comment on above: Result Comment: clot nellie, spoke with ayden Performed By: #### L 500.4050, L503.6005, L100.0100, L501.2450 ####[facility] [address] [place], [address] NEUT% Normal 47-70 [facility] Comment on above: Result Comment: clot nellie, spoke with ayden Performed By: #### L 500.4050, L503.6005, L100.0100, L501.2450 ####[facility] [address] [place], [address] PLT Normal 150-450 [facility] Comment on above: Result Comment: clot nellie, spoke with ayden Performed By: #### L 500.4050, L503.6005, L100.0100, L501.2450 ####[facility] [address] [place], [address] RBC Normal 4.6-6.2 [facility] Comment on above: Result Comment: clot nellie, spoke with ayden Performed By: #### L 500.4050, L503.6005, L100.0100, L501.2450 ####[facility] [address] [place], [address] RDW CV Normal 11.6-14.6 [facility] Comment on above: Result Comment: clot nellie, spoke with ayden Performed By: #### L 500.4050, L503.6005, L100.0100, L501.2450 ####[facility] [address] [place], [address] RDW SD Normal 35.1-43.9 [facility] Comment on above: Result Comment: clot nellie, spoke with ayden Performed By: #### L 500.4050, L503.6005, L100.0100, L501.2450 ####[facility] [address] [place], [address] WBC Normal 4.4-11.0 [facility] Comment on above: Result Comment: nigel ballard, spoke with ayden Performed By: #### L 500.4050, L503.6005, L100.0100, L501.2450 ####[facility] [address] [place], [address] CO2 (BldV) [Moles/Vol]Ordere d By: Rolan Romero on 06-25-2024 CO2 [Moles/Vol] 30 mmol/L 23-33 [facility] Carbon dioxide, total [Moles /volume] in Central venous bloodOrdered By: Rolan Romero on 06-25-2024 CO2 [Moles/Vol] 24.2 mmol/L 21.0-32.0 [facility] Chloride assayOrdered By: Tray Romero on 06-25-2024 Chloride [Moles/Vol] 95 mmol/L Low 98-108 [facility] Clostridium difficile detect ion by polymerase chain reactionOrdered By: Cornado Fraser on 06-25-2024 C. difficile DNA GENEVA+probe Ql (Unsp spec) [facility] Comprehensive Metabolic Prof ilon 06-25-2024 Albumin [Mass/Vol] 2.5 g/dL Low 3.4-4.8 [facility] Comment on above: Order Comment: REDRA W. PREVIOUS SPECIMEN REJECTED DUE TOHEMOLYSIS. 06/25/24 175 Jamari Aguayo. Performed By: #### L 500.4050, L501.2450 ####[facility] [address] [place], [address] Albumin/Globulin [Mass ratio] 1.0 {ratio} Normal 0.9-2.4 [facility] Comment on above: Order Comment: REDRA W. PREVIOUS SPECIMEN REJECTED DUE TOHEMOLYSIS. 06/25/241755 Jamari Aguayo. Performed By: #### L 500.4050, L501.2450 ####[facility] [address] [place], [address] ALK PHOS 125 U/L Normal 40-129 [facility] Comment on above: Order Comment: REDRA W. PREVIOUS SPECIMEN REJECTED DUE TOHEMOLYSIS. 06/25/241755 Jamari Aguayo. Performed By: #### L 500.4050, L501.2450 ####[facility] [address] [place], [address] ALT [Catalytic activity/Vol] 32 U/L Normal <=46 [facility] Comment on above: Order Comment: REDRA W. PREVIOUS SPECIMEN REJECTED DUE TOHEMOLYSIS. 06/25/241755 Jamari Aguayo. Performed By: #### L 500.4050, L501.2450 ####[facility] [address] [place], [address] AST [Catalytic activity/Vol] 62 U/L High <=37 [facility] Comment on above: Order Comment: REDRA W. PREVIOUS SPECIMEN REJECTED DUE TOHEMOLYSIS. 06/25/241755 Jamari Aguayo. Performed By: #### L 500.4050, L501.2450 ####[facility] [address] [place], [address] Bilirubin [Mass/Vol] 0.46 mg/dL Normal 0.00-1.30 [facility] Comment on above: Order Comment: REDRA W. PREVIOUS SPECIMEN REJECTED DUE TOHEMOLYSIS. 06/25/241755 Jamari Aguayo. Performed By: #### L 500.4050, L501.2450 ####[facility] [address] [place], [address] BUN/CRE 6.5 RATIO Low 10-20 [facility] Comment on above: Order Comment: REDRA W. PREVIOUS SPECIMEN REJECTED DUE TOHEMOLYSIS. 06/25/241755 Jamari Aguayo. Performed By: #### L 500.4050, L501.2450 ####[facility] [address] [place], [address] Calcium [Mass/Vol] 7.7 mg/dL Normal 7.6-11.0 [facility] Comment on above: Order Comment: REDRA W. PREVIOUS SPECIMEN REJECTED DUE TOHEMOLYSIS. 06/25/241755 Jamari Aguayo. Performed By: #### L 500.4050, L501.2450 ####[facility] [address] [place], [address] Chloride [Moles/Vol] 95 mmol/L Low 98-108 [facility] Comment on above: Order Comment: REDRA W. PREVIOUS SPECIMEN REJECTED DUE TOHEMOLYSIS. 06/25/241755 Jamari Aguayo. Performed By: #### L 500.4050, L501.2450 ####[facility] [address] [place], [address] CO2 [Moles/Vol] 24.2 mmol/L Normal 21.0-32.0 [facility] Comment on above: Order Comment: REDRA W. PREVIOUS SPECIMEN REJECTED DUE TOHEMOLYSIS. 06/25/241755 Jamari Aguayo. Performed By: #### L 500.4050, L501.2450 ####[facility] [address] [place], [address] Creatinine [Mass/Vol] 1.27 mg/dL High 0.70-1.20 [facility] Comment on above: Order Comment: REDRA W. PREVIOUS SPECIMEN REJECTED DUE TOHEMOLYSIS. 06/25/241755 Jamari Aguayo. Performed By: #### L 500.4050, L501.2450 ####[facility] [address] [place], [address] ECRCL 65.06 ml/min Normal 50-250 [facility] Comment on above: Order Comment: REDRA W. PREVIOUS SPECIMEN REJECTED DUE TOHEMOLYSIS. 06/25/241755 Jamari Aguayo. Performed By: #### L 500.4050, L501.2450 ####[facility] [address] [place], [address] GAP 16 High 5-15 [facility] Comment on above: Order Comment: REDRA W. PREVIOUS SPECIMEN REJECTED DUE TOHEMOLYSIS. 06/25/241755 Jamari Aguayo. Performed By: #### L 500.4050, L501.2450 ####[facility] [address] [place], [address] GFR/1.73 sq M.predicted among non-blacks MDRD (S/P/Bld) [Vol rate/Area] 64 mL/min/{1.73_m2} Normal >60 [facility] Comment on above: Order Comment: REDRA W. PREVIOUS SPECIMEN REJECTED DUE TOHEMOLYSIS. 06/25/241755 Jamari Aguayo. Result Comment: mL/m in/1.73m2 CKD-EPI Creatinine Equation (2020) Performed By: #### L 500.4050, L501.2450 ####[facility] [address] [place], [address] Globulin (S) [Mass/Vol] 2.5 g/dL Normal 2.2-4.2 [facility] Comment on above: Order Comment: REDRA W. PREVIOUS SPECIMEN REJECTED DUE TOHEMOLYSIS. 06/25/241755 Jamari Aguayo. Performed By: #### L 500.4050, L501.2450 ####[facility] [address] [place], [address] Glucose [Mass/Vol] 398 mg/dL High 70-99 [facility] Comment on above: Order Comment: REDRA W. PREVIOUS SPECIMEN REJECTED DUE TOHEMOLYSIS. 06/25/241755 Jamari Aguayo. Performed By: #### L 500.4050, L501.2450 ####[facility] [address] [place], [address] Potassium [Moles/Vol] 2.2 mmol/L Invalid Interpretation Code 3.3-5.1 [facility] Comment on above: Order Comment: REDRA W. PREVIOUS SPECIMEN REJECTED DUE TOHEMOLYSIS. 06/25/241755 Jamari Aguayo. Result Comment: Crit ical Result(s) Called at: 06/25/2024-18:50 by: Khushi to Ann-Marie Giancarlo.??Results read back by same. Performed By: #### L 500.4050, L501.2450 ####[facility] [address] [place], [address] Sodium [Moles/Vol] 136 mmol/L Normal 133-145 [facility] Comment on above: Order Comment: REDRA W. PREVIOUS SPECIMEN REJECTED DUE TOHEMOLYSIS. 06/25/241755 Jamari Aguayo. Performed By: #### L 500.4050, L501.2450 ####[facility] [address] [place], [address] T PROT 5.0 g/dL Low 5.9-8.4 [facility] Comment on above: Order Comment: REDRA W. PREVIOUS SPECIMEN REJECTED DUE TOHEMOLYSIS. 06/25/241755 Jamari Aguayo. Performed By: #### L 500.4050, L501.2450 ####[facility] [address] [place], [address] Urea nitrogen [Mass/Vol] 8 mg/dL Normal 4-19 [facility] Comment on above: Order Comment: REDRA W. PREVIOUS SPECIMEN REJECTED DUE TOHEMOLYSIS. 06/25/241755 Jamari Aguayo. Performed By: #### L 500.4050, L501.2450 ####[facility] [address] [place], [address] ALB Normal 3.4-4.8 [facility] Comment on above: Result Comment: This specimen has been REJECTED due to Laboratory criteria:Hemolyzed.KIM (ED) has been notified of need of recollection.06/25/241754 Jamari L White Performed By: #### L 500.4050, L503.6005, L100.0100, L501.2450 ####[facility] [address] [place], [address] ALK PHOS Normal 40-129 [facility] Comment on above: Result Comment: This specimen has been REJECTED due to Laboratory criteria:Hemolyzed.KIM (ED) has been notified of need of recollection.06/25/241754 Jamari L White Performed By: #### L 500.4050, L503.6005, L100.0100, L501.2450 ####[facility] [address] [place], [address] ALT Normal <=46 [facility] Comment on above: Result Comment: This specimen has been REJECTED due to Laboratory criteria:Hemolyzed.KIM (ED) has been notified of need of recollection.06/25/241754 Jamari L White Performed By: #### L 500.4050, L503.6005, L100.0100, L501.2450 ####[facility] [address] [place], [address] AST Normal <=37 [facility] Comment on above: Result Comment: This specimen has been REJECTED due to Laboratory criteria:Hemolyzed.KIM (ED) has been notified of need of recollection.06/25/241754 Jamari L White Performed By: #### L 500.4050, L503.6005, L100.0100, L501.2450 ####[facility] [address] [place], [address] BUN Normal 4-19 [facility] Comment on above: Result Comment: This specimen has been REJECTED due to Laboratory criteria:Hemolyzed.KIM (ED) has been notified of need of recollection.06/25/241754 Jamari L White Performed By: #### L 500.4050, L503.6005, L100.0100, L501.2450 ####[facility] [address] [place], [address] BUN/CRE Normal 10-20 [facility] Comment on above: Result Comment: This specimen has been REJECTED due to Laboratory criteria:Hemolyzed.PAIGEILIE (ED) has been notified of need of recollection.06/25/241754 Jamari L White Performed By: #### L 500.4050, L503.6005, L100.0100, L501.2450 ####[facility] [address] [place], [address] Calcium Normal 7.6-11.0 [facility] Comment on above: Result Comment: This specimen has been REJECTED due to Laboratory criteria:Hemolyzed.EDILIAE (ED) has been notified of need of recollection.06/25/241754 Jamari L White Performed By: #### L 500.4050, L503.6005, L100.0100, L501.2450 ####[facility] [address] [place], [address] CL Normal 98-108 [facility] Comment on above: Result Comment: This specimen has been REJECTED due to Laboratory criteria:Hemolyzed.PAIGEILIE (ED) has been notified of need of recollection.06/25/241754 Jamari L White Performed By: #### L 500.4050, L503.6005, L100.0100, L501.2450 ####[facility] [address] [place], [address] CO2 Normal 21.0-32.0 [facility] Comment on above: Result Comment: This specimen has been REJECTED due to Laboratory criteria:Hemolyzed.EDILIAE (ED) has been notified of need of recollection.06/25/241754 Jamari L White Performed By: #### L 500.4050, L503.6005, L100.0100, L501.2450 ####[facility] [address] [place], [address] CREAT,SERUM Normal 0.70-1.20 [facility] Comment on above: Result Comment: This specimen has been REJECTED due to Laboratory criteria:Hemolyzed.KIM (ED) has been notified of need of recollection.06/25/241754 Jamari L White Performed By: #### L 500.4050, L503.6005, L100.0100, L501.2450 ####[facility] [address] [place], [address] eGFR Normal >60 [facility] Comment on above: Result Comment: This specimen has been REJECTED due to Laboratory criteria:Hemolyzed.KIM (ED) has been notified of need of recollection.06/25/241754 Jamari L White Performed By: #### L 500.4050, L503.6005, L100.0100, L501.2450 ####[facility] [address] [place], [address] GAP Normal 5-15 [facility] Comment on above: Result Comment: This specimen has been REJECTED due to Laboratory criteria:Hemolyzed.KIM (ED) has been notified of need of recollection.06/25/241754 Jamari L White Performed By: #### L 500.4050, L503.6005, L100.0100, L501.2450 ####[facility] [address] [place], [address] GLU Normal 70-99 [facility] Comment on above: Result Comment: This specimen has been REJECTED due to Laboratory criteria:Hemolyzed.KIM (ED) has been notified of need of recollection.06/25/241754 Jamari L White Performed By: #### L 500.4050, L503.6005, L100.0100, L501.2450 ####[facility] [address] [place], [address] Potassium Normal 3.3-5.1 [facility] Comment on above: Result Comment: This specimen has been REJECTED due to Laboratory criteria:Hemolyzed.LORILIE (ED) has been notified of need of recollection.06/25/241754 Jamari L White Performed By: #### L 500.4050, L503.6005, L100.0100, L501.2450 ####[facility] [address] [place], [address] T BILI Normal 0.00-1.30 [facility] Comment on above: Result Comment: This specimen has been REJECTED due to Laboratory criteria:Hemolyzed.LORILIE (ED) has been notified of need of recollection.06/25/241754 Jamari L White Performed By: #### L 500.4050, L503.6005, L100.0100, L501.2450 ####[facility] [address] [place], [address] T PROT Normal 5.9-8.4 [facility] Comment on above: Result Comment: This specimen has been REJECTED due to Laboratory criteria:Hemolyzed.LORILIE (ED) has been notified of need of recollection.06/25/241754 Jamari L White Performed By: #### L 500.4050, L503.6005, L100.0100, L501.2450 ####[facility] [address] [place], [address] Comprehensive Metabolic Profil Normal 133-145 [facility] Comment on above: Result Comment: This specimen has been REJECTED due to Laboratory criteria:Hemolyzed.LORILIE (ED) has been notified of need of recollection.06/25/241754 Jamari L White Performed By: #### L 500.4050, L503.6005, L100.0100, L501.2450 ####[facility] [address] [place], [address] Emergency Department Summary on 06-25-2024 Emergency Department Summary Normal [facility] Eosinophil percentageOrdered By: Rolan Romero on 06-25-2024 Eosinophils/100 WBC (Bld) 0.2 % 0-5 [facility] Erythrocyte distribution wid th ratioOrdered By: Rolan Romero on 06-25-2024 Erythrocyte distribution width (RBC) [Ratio] 16.2 % High 11.6-14.6 [facility] Erythrocyte distribution wid th standard deviationOrdered By: Rolan Quinn on 06-25-2024 Erythrocyte distribution width (RBC) [Ratio] 63.9 fl High 35.1-43.9 [facility] Glomerular filtration rate ( GFR) estimation/1.73 sq m using serum, plasma, or whole bOrdered By: Rolan Romero on 06-25-2024 GFR/1.73 sq M.predicted among non-blacks MDRD (S/P/Bld) [Vol rate/Area] 64 mL/min/{1.73_m2} >60 [facility] Comment on above: mL/min/1.73m2 CKD-EP I Creatinine Equation (2020) Glucose measurement at bedsi deOrdered By: Rolan Romero on 06-25-2024 Glucose [Mass/Vol] 277 mg/dL High 74-106 [facility] Comment on above: MANAGEMENT OF PATIEN T CARE PER NURSING PROTOCOL H AND P Exam - Hospital[place] 06-25-2024 H&P Exam - Hospitalist Normal [facility] Hematocrit Auto (Bld) [Volum e fraction]Ordered By: Rolan Romero on 06-25-2024 Hematocrit (Bld) [Volume fraction] 29.8 % Low 40-54 [facility] Hemoglobin A1c percentageOrd ered By: Conrado Fraser on 06-25-2024 HbA1c (Bld) [Mass fraction] 6.6 % High <5.7 [facility] Comment on above: Normal < 5.7 % Predi abetic 5.7 - 6.4 % Diabetic >or= 6.5 % Please note range changes. Hemoglobin measurementOrdere d By: Rolan Romero on 06-25-2024 Hemoglobin (Bld) [Mass/Vol] 10.1 g/dL Low 13.0-16.5 [facility] Immature granulocytes/100 WB C Auto (Bld)Ordered By: Rolan Romero on 06-25-2024 Immature granulocytes/100 WBC (Bld) 0.200 % 0.0-0.9 [facility] Comment on above: IG% - Immature Granu locytes (promyelocytes, myelocytes and metamyelocytes) > 1% indicates that a LEFT SHIFT is Present. Ketones Test strip Ql (U)Ord ered By: Rolan Romero on 06-25-2024 Ketones Ql (U) Negative Negative [facility] Laboratory - Chemistry and C hemistry - challengeOrdered By: Rolan Romero on 06-25-2024 AST [Catalytic activity/Vol] 62 U/L High <38 [facility] Lactic Acidon 06-25-2024 Lactate [Moles/Vol] 4.8 mmol/L Invalid Interpretation Code 0.0-2.0 [facility] Comment on above: Result Comment: Crit ical Result(s) Called at: 2318by: MATTHEW HUBER TO ELIS VALENCIA.??Results read back bysame. Performed By: #### L 503.6005 ####[facility] [address] [place], [place], [id number] Lactate [Moles/Vol] 6.6 mmol/L Invalid Interpretation Code 0.0-2.0 [facility] Comment on above: Order Comment: Y Result Comment: Crit ical Result(s) Called at: 06/25/2024-18:50 by: Khushi to Ann-Marie Mondragon.??Results read back by same. Performed By: #### L 500.4050, L503.6005, L100.0100, L501.2450 ####[facility] [address] [facility] [place], [place], [id number] Lactic acid measurementOrder ed By: Rolan Romero on 06-25-2024 Lactate [Moles/Vol] 4.8 mmol/L High 0.0-2.0 [facility] Comment on above: Critical Result(s) C alled at: 2318by: MATTHEW HUBER TO ELIS VALENCIA. Results read back by same. Lipaseon 06-25-2024 Lipase [Catalytic activity/Vol] 6 U/L Low 13-75 [facility] Comment on above: Order Comment: OLIVIA Escoto. PREVIOUS SPECIMEN REJECTED DUE TOHEMOLYSIS. 06/25/241755 Jamari Aguayo. Result Comment: Pletayla zamorano note:LIPASE revised reference range effective 22.New Lipase methodology. Expected to produce lower valuesthan the previous assay method.NEW Reference Range: 13 - 75 U/L Performed By: #### L 500.4050, L501.2450 ####[facility] [address] [place], [address] Lipase [Catalytic activity/Vol] 11 U/L Low -75 [facility] Comment on above: Order Comment: This specimen has been REJECTED due to Laboratory criteria:Hemolyzed.KIM (ED) has been notified of need of recollection.06/25/241754 Jamari Aguayo Result Comment: This specimen has been REJECTED due to Laboratory criteria:Hemolyzed.KIM (ED) has been notified of need of recollection.06/25/241754 Jamari AguayoPlease note:LIPASE revised reference range effective 22.New Lipase methodology. Expected to produce lower valuesthan the previous assay method.NEW Reference Range: 13 - 75 U/L Performed By: #### L 500.4050, L503.6005, L100.0100, L501.2450 ####[facility] [address] [place], [address] Lipase measurementOrdered By : Rolan Romero on 06-25-2024 Lipase [Catalytic activity/Vol] 6 U/L Low 13-75 [facility] Comment on above: Please note:LIPASE r evised reference range effective 22. New Lipase methodology. Expected to produce lower values than the previous assay method. NEW Reference Range: 13 - 75 U/L MCV (mean corpuscular volume ) determinationOrdered By: Rolan Romero on 06-25-2024 MCV (RBC) [Entitic vol] 106.4 fL High 80-[address] [facility] Magnesiumon 06-25-2024 Magnesium [Mass/Vol] 1.8 mg/dL Normal 1.5-2.2 [facility] Comment on above: Performed By: #### L 501.5600, L501.6901, L501.5200 ####[facility] [address] [place], [address] Magnesium measurement (mass/ volume)Ordered By: Rolan Romero on 06-25-2024 Magnesium (Unsp spec) [Mass/Vol] 1.8 mg/dL 1.5-2.2 [facility] Mean corpuscular hemoglobin (MCH) determinationOrdered By: Rolan Romero on 06-25-2024 MCH (RBC) [Entitic mass] 36.1 pg High 27.0-32.0 [facility] Mean corpuscular hemoglobin concentration (MCHC) determinationOrdered By: Rolan Romero on 06-25-2024 MCHC (RBC) [Mass/Vol] 33.9 g/dL 32-36 [facility] Mean platelet volume determi nationOrdered By: Rolan Romero on 06-25-2024 Platelet mean volume (Bld) [Entitic vol] 11.8 fL 6.2-12.0 [facility] Microscopic analysis of urin e for red blood cells (RBC)Ordered By: Rolan Romero on 06-25-2024 Microscopic analysis of urine for red blood cells (RBC) 0 SEEN /hpf 0-5 [facility] Monocyte percentageOrdered B y: Rolan Romero on 06-25-2024 Monocytes/100 WBC (Bld) 11.6 % High 0-[address] [facility] Mucus LM Ql (Urine sed)Order ed By: Rolan Romero on 06-25-2024 Mucus Ql (Urine sed) 0 SEEN /hpf [facility] Neutrophil percentageOrdered By: Rolan Romero on 06-25-2024 Neutrophils/100 WBC (Bld) 65.3 % 47-70 [facility] Nitrite Test strip Ql (U)Ord ered By: Rolan Romero on 06-25-2024 Nitrite Ql (U) Negative Negative [facility] No Panel InformationOrdered By: Rolan Romero on 06-25-2024 Blood Gas Sample Site Not entered [facility] Blood Gas Specimen Type ROSA [facility] Oxygen Delivery Device Room Air [facility] ROSA [facility] Not entered [facility] Room Air [facility] No Panel InformationOrdered By: Conrado Fraser on 06-25-2024 Urine Buprenorphine Qualitative Negative < 200 ng/mL [facility] Urine Oxycodone Screen Negative < 100 ng/mL [facility] Negative < 200 ng/mL [facility] Nucleated red blood cell per centageOrdered By: Rolan Romero on 06-25-2024 Nucleated RBC/100 WBC (Bld) [Ratio] 0 % 0-5 [facility] Platelet countOrdered By: Tray Romero on 06-25-2024 Platelets (Bld) [#/Vol] 124 10*3/uL Low 150-450 [facility] Potassiumon 06-25-2024 Potassium [Moles/Vol] 2.1 mmol/L Invalid Interpretation Code 3.3-5.1 [facility] Comment on above: Result Comment: Crit ical Result(s) Called at: 06/25/2024-21:41 by: Khushi VASQUEZ.??Results read back by same. Performed By: #### L 501.5600, L501.6901, L501.5200 ####[facility] [address] [place], [address] Potassium measurement (mass/ volume)Ordered By: Rolan Romero on 06-25-2024 Potassium (Unsp spec) [Mass/Vol] 2.1 mmol/L Low 3.3-5.1 [facility] Comment on above: Critical Result(s) C alled at: 06/25/2024-21:41 by: Jamari EVANSIL CHRISTINA. Results read back by same. Protein Test strip Ql (U)Ord ered By: Rolan Romero on 06-25-2024 Protein Ql (U) 15 mg/dl High Negative [facility] Quantitative urine opiates m easurementOrdered By: Conrado Fraser on 06-25-2024 Opiates Ql (U) Negative < 300 ng/mL [facility] RBC Auto (Bld) [#/Vol]Ordere d By: Rolan Romero on 06-25-2024 RBC (Bld) [#/Vol] 2.80 10*6/uL Low 4.6-6.2 [facility] Screening urine fentanyl mine surementOrdered By: Conrado Fraser on 06-25-2024 fentaNYL Screen Ql (U) Negative [facility] Serum creatinine measurement (mass/volume)Ordered By: Rolan Romero on 06-25-2024 Creatinine [Mass/Vol] 1.27 mg/dL High 0.70-1.20 [facility] Serum globulin measurementOr dered By: Rolan Romero on 06-25-2024 Globulin (S) [Mass/Vol] 2.5 g/dL 2.2-4.[address] [facility] Serum glucose measurement (m ass/volume)Ordered By: Rolan Romero on 06-25-2024 Glucose [Mass/Vol] 398 mg/dL High 70-99 [facility] Serum or plasma alanine padilla otransferase (ALT) measurementOrdered By: Rolan Romero on 06-25-2024 ALT [Catalytic activity/Vol] 32 U/L <47 [facility] Serum or plasma albumin luciana urement (mass/volume)Ordered By: Rolan Quinn on 06-25-2024 Albumin [Mass/Vol] 2.5 g/dL Low 3.4-4.8 [facility] Serum or plasma albumin/glob ulin mass ratioOrdered By: Rolan Romero on 06-25-2024 Albumin/Globulin [Mass ratio] 1.0 {ratio} 0.9-2.4 [facility] Serum or plasma alkaline nolan sphatase measurementOrdered By: Rolan Romero on 06-25-2024 ALP [Catalytic activity/Vol] 125 U/L 40-129 [facility] Serum or plasma calcium luciana urement (mass/volume)Ordered By: Rolan Quinn on 06-25-2024 Calcium [Mass/Vol] 7.7 mg/dL 7.6-11.0 [facility] Serum or plasma ethanol luciana urement (mass/volume)Ordered By: Rolan Quinn on 06-25-2024 Ethanol [Mass/Vol] mg/dL <10.1 [facility] Comment on above: This test is for med ical purposes only. The legal definition of intoxication varies according to local law. Serum or plasma urea nitroge n measurement (mass/volume)Ordered By: Rolan Romero on 06-25-2024 Urea nitrogen [Mass/Vol] 8 mg/dL 4-19 [facility] Sodium levelOrdered By: Praneeth Romero on 06-25-2024 Sodium [Moles/Vol] 136 mmol/L 133-145 [facility] Squamous epithelial cells de tection in urine sediment by light microscopyOrdered By: Rolan Romero on 06-25-2024 Epithelial cells.squamous LM Ql (Urine sed) 0 SEEN /hpf 0-5 [facility] Stool lactoferrin detection by immunoassayOrdered By: Conrado Fraser on 06-25-2024 Lactoferrin IA Ql (Stl) [facility] Total proteinOrdered By: Dom Romero on 06-25-2024 Protein [Mass/Vol] 5.0 g/dL Low 5.9-8.4 [facility] Urinalysis, Completeon 06-25 BACTERIA 0 SEEN Normal None Seen [facility] Comment on above: Order Comment: CLEAN CATCH Performed By: #### L 400.0001 ####[facility] [address] [place], [address] EPI,SQUAMOUS 0 SEEN Normal 0-5 [facility] Comment on above: Order Comment: CLEAN CATCH Performed By: #### L 400.0001 ####[facility] [address] [place], [place], [id number] Mucus Ql (Urine sed) 0 SEEN Normal [facility] Comment on above: Order Comment: CLEAN CATCH Performed By: #### L 400.0001 ####[facility] [address] [place], [place], [id number] RBC 0 SEEN Normal 0-5 [facility] Comment on above: Order Comment: CLEAN CATCH Performed By: #### L 400.0001 ####[facility] [address] [place], [place], [id number] WBC 0 SEEN Normal 0-5 [facility] Comment on above: Order Comment: CLEAN CATCH Performed By: #### L 400.0001 ####[facility] [address] [place], [place], [id number] Urine benzodiazepine levelOr dered By: Conrado Fraser on 06-25-2024 Benzodiazepines Ql (U) Negative < 200 ng/mL [facility] Urine clarityOrdered By: Dom Romero on 06-25-2024 Clarity (U) Clear Clear [facility] Urine cocaine levelOrdered B y: Conrado Fraser on 06-25-2024 Cocaine Ql (U) Negative < 300 ng/mL [facility] Urine color determinationOrd ered By: Rolan Romero on 06-25-2024 Color (U) Yellow Yellow [facility] Urine tolgq-2-jrklqxpqtzdwff abinol (THC) measurementOrdered By: Conrado Fraser on 06-25-2024 Cannabinoids Screen Ql (U) Negative < 50 ng/mL [facility] Urine glucose detectionOrder ed By: Rolan Romero on 06-25-2024 Glucose Ql (U) 1000 mg/dl High Normal [facility] Urine leukocyte esterase det ection by dipstickOrdered By: Rolan Romero on 06-25-2024 Leukocyte esterase Test strip Ql (U) Negative Negative [facility] Urine pHOrdered By: Rolan Saul on 06-25-2024 pH (U) 7.0 [pH] 5.0 - 8.0 [facility] Urine phencyclidine (PCP) de tectionOrdered By: Conrado Fraser on 06-25-2024 Phencyclidine Ql (U) Negative < 25 ng/mL [facility] Urine sediment bacteria coun t by microscopy (number/high power field)Ordered By: Rolan Romero on 06-25-2024 Bacteria LM.HPF (Urine sed) [#/Area] 0 /[HPF] None Seen [facility] Urine specific gravity measu rementOrdered By: Rolan Romero on 06-25-2024 Specific gravity (U) [Rel density] 1.010 1.002-1.030 [facility] Urine urobilinogen measureme ntOrdered By: Rolan Romero on 06-25-2024 Urobilinogen Ql (U) Normal mg/dl Normal [facility] Venous Blood Gason 5 Blood Gas Type ROSA Normal [facility] Comment on above: Performed By: #### L 9000.0810 ####[facility] [address] [facility] [address] CO2 [Moles/Vol] 30 mmol/L Normal 23-33 [facility] Comment on above: Performed By: #### L 9000.0810 ####[facility] [address] [place], [address] HCO3 (Bld) [Moles/Vol] 29 mmol/L High 22-26 [facility] Comment on above: Performed By: #### L 9000.0810 ####[facility] [address] [place], [address] O2 Delivery Dev Room Air [facility] Comment on above: Performed By: #### L 9000.0810 ####[facility] [address] [place], [address] SITE Not entered Normal [facility] Comment on above: Performed By: #### L 9000.0810 ####[facility] [address] [place], [address] VBG BE 4 mmol/L High -1.0-3.5 [facility] Comment on above: Performed By: #### L 9000.0810 ####[facility] [address] [place], [address] VBG pCO2 42.7 mmHg Normal 41-51 [facility] Comment on above: Performed By: #### L 9000.0810 ####[facility] [address] [place], [address] VBG pH 7.43 High 7.32-7.42 [facility] Comment on above: Performed By: #### L 9000.0810 ####[facility] [address] [place], [address] VBG PO2 29 mmHg Normal 25-40 [facility] Comment on above: Performed By: #### L 9000.0810 ####[facility] [address] [place], [address] VBG SO2 58 Normal 50-70 [facility] Comment on above: Performed By: #### L 9000.0810 ####[facility] [address] [place], [address] Venous blood base excess mine surementOrdered By: Rolan Romero on 06-25-2024 Base excess Calc (BldV) [Moles/Vol] 4 mmol/L High -1.0-3.5 [facility] Venous blood bicarbonate mine surementOrdered By: Rolan Romero on 06-25-2024 HCO3 (Bld) [Moles/Vol] 29 mmol/L High 22-26 [facility] Venous blood oxygen saturati on measurementOrdered By: Rolan Romero on 06-25-2024 Oxygen saturation in Blood 58 % 50-70 [facility] Venous blood pH measurementO rdered By: Rolan Romero on 06-25-2024 pH (BldV) 7.43 [pH] High 7.32-7.42 [facility] Venous blood partial pressur e of carbon dioxide measurementOrdered By: Rolanagustin Romero on 06-25-2024 CO2 (BldV) [Partial pressure] 42.7 mm[Hg] 41-51 [facility] Venous blood partial pressur e of oxygen measurementOrdered By: [place] Tanesha Quinn on 06-25-2024 Oxygen (BldV) [Partial pressure] 29 mm[Hg] 25-40 [facility] White blood cell (WBC) count Ordered By: Rolan Romero on 06-25-2024 WBC (Bld) [#/Vol] 4.8 10*3/uL 4.4-11.0 [facility] White blood cell countOrdere d By: Rolan Romero on 06-25-2024 White blood cell count 0 SEEN /hpf 0-[address] [facility] CNPNon 06-21-2024 CNPN Telephone (AGFAMPLE) ANALILIA MELENDREZ ([id number]) 1960 M Date Time Provider Department 06/21/24 MARIANNA WAGNER During your visit today, we recorded the following information about you: Andrew Ponce MA 06/21/2024 2:40 PM Signed Pt. Cristo on stating awhile back you put him on antibiotics for a UTI and he would like a refill. Please advise. FLORENTINO Stephens Julie, MA 06/22/2024 3:55 PM Signed Patient called again requesting something to be called in FLORENTINO Cerrato Brittny A, APRN.CNP 06/23/2024 8:13 AM Signed His urine would need to be tested first. I placed the lab order. Marianna Wagner APRN.CNP 06/23/2024 8:13 AM Signed Addended by: MARIANNA WAGNER on: 06/23/2024 08:13 AM Modules accepted: Orders Giulia Rogel MA 06/23/2024 2:41 PM Signed Left message [...] WITH CULTURE IF INDICATED [SQUACII] Order #: [id number] FUTURE Prescriptions as of 06/23/2024 - UNIFINE [...] fourteen (14) days to upper arm. - xfbymc-gmuqgcvd-bzzgefo (CREON 36) 36,000-114,000- 180,000 unit delayed release capsule Take 2 pills by mouth with first bite of meal and take 1 pill with snacks. Max 10 per day. - Cholecalciferol, Vitamin D3, (VITAMIN D-3) 50 mcg (2,000 unit) cap Take 1 capsule by mouth once daily. 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 He denies other symptoms patient would like to know if he needs a med change FLORENTINO Cerrato Brittny A, WAXER OPERATOR.STEPHANIE 04/14/2024 8:19 AM Signed I would like [...] fourteen (14) days to upper arm. - womruh-vqcobltm-xowxptl (CREON 36) 36,000-114,000- 180,000 unit delayed release capsule Take 2 pills by mouth with first bite of meal and take 1 pill with snacks. Max 10 per day. - Cholecalciferol, Vitamin D3, (VITAMIN D-3) 50 mcg (2,000 unit) cap Take 1 capsule by mouth once daily. 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 Normal [facility] CBC W Auto Differential pane l (Bld)on 04-12-2024 Basophils (Bld) [#/Vol] 0.11 10*3/uL High <0.11 [facility] Comment on above: Order Comment: Speci men Type: BLOOD SPECIMENOrdering Facility: [facility] Address: [address] [place] [address] Performed By: #### 5 7021-8 ####[facility] [id number] [place] [address] [place] Basophils/100 WBC (Bld) 2.1 % Normal [facility] Comment on above: Order Comment: Corbyi eliu Type: BLOOD SPECIMENOrdering Facility: [facility] Address: [address] [place] [address] Performed By: #### 5 7021-8 ####[facility] FOSTERRIDGWAYMAGUELIA [id number] [place] [address] [place] Differential cell count method Nom (Bld) Auto Normal [facility] Comment on above: Order Comment: Speci men Type: BLOOD SPECIMENOrdering Facility: [facility] Address: [address] [place] [address] Performed By: #### 5 7021-8 ####[facility] [id number] [place] [address] [place] Eosinophils (Bld) [#/Vol] 0.06 10*3/uL Normal <0.46 [facility] Comment on above: Order Comment: Speci men Type: BLOOD SPECIMENOrdering Facility: [facility] Address: [address] [place] [address] Performed By: #### 5 7021-8 ####[facility] [id number] [place] [address] [place] Eosinophils/100 WBC (Bld) 1.1 % Normal [facility] Comment on above: Order Comment: Speci men Type: BLOOD SPECIMENOrdering Facility: [facility] Address: [address] [place] [address] Performed By: #### 5 7021-8 ####[facility] [id number] [place] [address] [place] Erythrocyte distribution width (RBC) [Ratio] 15.6 % High 11.5-15.0 [facility] Comment on above: Order Comment: Speci men Type: BLOOD SPECIMENOrdering Facility: [facility] Address: [address] [place] [address] Performed By: #### 5 7021-8 ####[facility] [id number] [place] [address] [place] Hematocrit (Bld) [Volume fraction] 36.8 % Low 39.0-51.0 [facility] Comment on above: Order Comment: Speci men Type: BLOOD SPECIMENOrdering Facility: [facility] Address: [address] [place] [address] Performed By: #### 5 7021-8 ####[facility] [id number] [place] [address] [place] Hemoglobin (Bld) [Mass/Vol] 11.9 g/dL Low 13.0-17.0 [facility] Comment on above: Order Comment: Speci men Type: BLOOD SPECIMENOrdering Facility: [facility] Address: [address] [place] [address] Performed By: #### 5 7021-8 ####[facility] [id number] [place] [address] [place] Immature granulocytes (Bld) [#/Vol] 10*3/uL Normal <0.10 [facility] Comment on above: Order Comment: Speci men Type: BLOOD SPECIMENOrdering Facility: [facility] Address: [address] [place] [address] Performed By: #### 5 7021-8 ####[facility] [id number] [place] [address] [place] Immature granulocytes/100 WBC (Bld) 0.4 % Normal [facility] Comment on above: Order Comment: Speci men Type: BLOOD SPECIMENOrdering Facility: [facility] Address: [address] [place] [address] Performed By: #### 5 7021-8 ####[facility] [id number] [place] [address] [place] Lymphocytes (Bld) [#/Vol] 1.31 10*3/uL Normal 1.00-4.00 [facility] Comment on above: Order Comment: Speci men Type: BLOOD SPECIMENOrdering Facility: [facility] Address: [address] [place] [address] Performed By: #### 5 7021-8 ####[facility] PAMELANCROSAURAA [id number] [place] [address] [place] [facility] Lymphocytes/100 WBC (Bld) 24.5 % Normal [facility] Comment on above: Order Comment: Speci men Type: BLOOD SPECIMENOrdering Facility: [facility] Address: [address] [place] [address] Performed By: #### 5 7021-8 ####[facility] FOSTERJevonRODO [id number] [place] [address] [place] MCH (RBC) [Entitic mass] 32.3 pg Normal 26.0-34.0 [facility] Comment on above: Order Comment: Speci men Type: BLOOD SPECIMENOrdering Facility: [facility] Address: [address] [place] [address] Performed By: #### 5 7021-8 ####[facility] [id number] [place] [address] [place] MCHC (RBC) [Mass/Vol] 32.3 g/dL Normal 30.5-36.0 [facility] Comment on above: Order Comment: Speci men Type: BLOOD SPECIMENOrdering Facility: [facility] Address: [address] [place] [address] Performed By: #### 5 7021-8 ####[facility] FOSTERJevonNCLIA [id number] [place] [address] [place] MCV (RBC) [Entitic vol] 100.0 fL Normal 80.0-100.0 C [facility] Comment on above: Order Comment: Speci men Type: BLOOD SPECIMENOrdering Facility: [facility] Address: [address] [place] [address] Performed By: #### 5 7021-8 ####[facility] [id number] [place] [address] [place] Monocytes (Bld) [#/Vol] 0.44 10*3/uL Normal <0.87 [facility] Comment on above: Order Comment: Speci men Type: BLOOD SPECIMENOrdering Facility: [facility] Address: [address] [place] [address] Performed By: #### 5 7021-8 ####[facility] [id number] [place] [address] [place] Monocytes/100 WBC (Bld) 8.2 % Normal [facility] Comment on above: Order Comment: Speci men Type: BLOOD SPECIMENOrdering Facility: [facility] Address: [address] [place] [address] Performed By: #### 5 7021-8 ####[facility] [id number] [place] [address] [place] Neutrophils (Bld) [#/Vol] 3.41 10*3/uL Normal 1.45-7.50 [facility] Comment on above: Order Comment: Speci men Type: BLOOD SPECIMENOrdering Facility: [facility] Address: [address] [place] [address] Performed By: #### 5 7021-8 ####[facility] [id number] [place] [address] [place] Neutrophils/100 WBC (Bld) 63.7 % Normal [facility] Comment on above: Order Comment: Speci men Type: BLOOD SPECIMENOrdering Facility: [facility] Address: [address] [place] [address] Performed By: #### 5 7021-8 ####[facility] [id number] [place] [address] [place] Nucleated RBC (Bld) [#/Vol] 10*3/uL Normal <0.01 [facility] Comment on above: Order Comment: Speci men Type: BLOOD SPECIMENOrdering Facility: [facility] Address: [address] [place] [address] Performed By: #### 5 7021-8 ####[facility] [id number] [place] [address] [place] Nucleated RBC/100 WBC (Bld) [Ratio] 0.0 /100 WBC Normal [facility] Comment on above: Order Comment: Speci men Type: BLOOD SPECIMENOrdering Facility: [facility] Address: [address] [place] [address] Performed By: #### 5 7021-8 ####[facility] [id number] [place] [address] [place] Platelet mean volume (Bld) [Entitic vol] 11.6 fL Normal 9.0-12.7 [facility] Comment on above: Order Comment: Speci men Type: BLOOD SPECIMENOrdering Facility: [facility] Address: [address] [place] [address] Performed By: #### 5 7021-8 ####[facility] [id number] [place] [address] [place] Platelets (Bld) [#/Vol] 164 10*3/uL Normal 150-400 [facility] Comment on above: Order Comment: Speci men Type: BLOOD SPECIMENOrdering Facility: [facility] Address: [address] [place] [address] Performed By: #### 5 7021-8 ####[facility] [id number] [place] [address] [place] RBC (Bld) [#/Vol] 3.68 10*6/uL Low 4.20-6.00 [facility] Comment on above: Order Comment: Speci men Type: BLOOD SPECIMENOrdering Facility: [facility] Address: [address] [place], [place] [address] [address] Performed By: #### 5 7021-8 ####[facility] ANDRES SANTIAGONCLIA [id number] [place] [address] [place] WBC (Bld) [#/Vol] 5.35 10*3/uL Normal 3.70-11.00 [facility] Comment on above: Order Comment: Speci men Type: BLOOD SPECIMENOrdering Facility: [facility] Address: [address] [place] [id number] Performed By: #### 5 7021-8 ####[facility] ANDRES GREYNCLIA [id number] [address] OF [place] CNOVSPon 04-12-2024 CNOVSP Visit (SP) Office (HEMAWS) DARRINANALILIA VERNON ([id number]) 1960 M Date Time Provider Department 04/12/24 [...] uses NSAIDs. Occasional reflux. He was in intermediate for 6 weeks in june for rehab [...] nonobstructive Chronic kidney disease, stage III (moderate) ([facility]) Clostridioides difficile infection Coronary artery disease Depression Diabetes mellitus, type II (HCC) Insulin dependent History of alcohol abuse Hx of ascending aorta repair Hyperlipidemia Hypertension Non-ST elevation NE (NSTEMI) ([facility]) 06/24 Pacemaker Paroxysmal atrial fibrillation (HCC) RBBB (right bundle branch block) S/P aortic valve replacement [facility] mechanical Syncope Tachy-fernando syndrome (HCC) Tobacco abuse chronic Tobacco user Type 2 diabetes mellitus (HCC) PAST SURGICAL HISTORY Procedure Laterality Date ABD AORTIC ANEURYSM REPAIR ASCENDING AORTA GRAFT W/AORTIC ROOT COLONOSCOPY SCREENING In [place] COLONOSCOPY SCREENING 04/05/2024 Internal hemorrhoids, poor prep [...] BY MOUTH EVERY DAY 90 tablet 1 zjznzc-caiozslx-cwqheke (CREON 36) 36,000-1 (more content not included)... Normal [facility] ANES POSTPROC EVALon 025 ANES POSTPROC EVAL HNO ID: [id number] Author: LUCAS SAHU MD Service: Anesthesiology Author Type: Anesthesiologist Type: Anesthesia Postprocedure Evaluation Filed: 04/05/2024 13:44 Note Text: POST ANESTHESIA EVALUATION NOTE : 1960 Procedure Summary Date: 04/05/24 Room / Location: [facility] Endoscopy Anesthesia Start: 1215 Anesthesia Stop: 1256 Procedures: COLONOSCOPY DIAGNOSTIC EGD DIAGNOSTIC Diagnosis: Anemia, unspecified type Weight loss Chronic pancreatitis, unspecified pancreatitis type (HCC) Epigastric pain (Iron deficiency anemia) (Iron deficiency anemia) Scheduled Providers: Phoebe Vazquez MD; Trenton Amaral MD; Lucas Delarosa APRN.SOFTWARE SALES REPRESENTATIVE Responsible Provider: Román Vazquez MD Anesthesia Type: [...] April 05, 2024 TIME: 1:44 PM CSN: [id number] Normal [facility] ANES PRE-OPon 04-05-2024 ANES PRE-OP HNO ID: [id number] Author: TRENTON AMARAL MD Service: ? Author Type: Anesthesiologist Type: Anesthesia Preprocedure Evaluation Filed: 04/05/2024 12:16 Note Text: ANESTHESIOLOGY DAY OF SURGERY NOTE : 1960 Procedure Information Date/Time: 04/05/24 1415 Scheduled providers: Phoebe Vazquez MD; Trenton Amaral MD; Lucas Delarosa APRN.SOFTWARE SALES REPRESENTATIVE Procedures: COLONOSCOPY DIAGNOSTIC EGD DIAGNOSTIC Location: [facility] Endoscopy Estimated body mass index is 18.97 kg/m? as calculated from the following: Height as of 12/27/23: 180.3 cm (5' 11). Weight as of 12/27/23: 61.7 kg (136 lb). Most recent hematocrit and potassium results: Hematocrit 31.8 10/15/2023 Potassium 4.8 10/15/2023 Relevant Problems CARDIO (+) Acute thoracic aortic dissection (HCC) (+) Aortic aneurysm (HCC) (+) Atherosclerotic heart disease of [place] coronary artery without angina pectoris (+) Old [...] BEFORE EATING UNIFINE PENTIPS 31 gauge x 3/16 USE ONE 3 TIMES DAILY ferrous sulfate (FEROSUL) 325 mg (65 mg iron) tablet TAKE ONE TABLET BY MOUTH EVERY DAY Blood-Glucose Sensor (FREESTYLE MANGO 3 SENSOR) daniel Apply new sensor every fourteen (14) days to upper arm. xtabtz-aevwdrov-wcliast (CREON 36) 36,000-114,000- 180,000 unit delayed release capsule Take 2 pills by mouth with first bite of meal and take 1 pill with snacks. Max 10 per day. Cholecalciferol, Vitamin D3, (VITAMIN D-3) 50 mcg (2,000 unit) cap Take 1 capsule by mouth once daily. Blood-Glucose Meter,Continuous (FREESTYLE MANGO 3 READER) [facility] Use to check blood sugar at least [...] April 05, 2024 TIME: 11:39 AM CSN: [id number] Normal [facility] Colonoscopyon 04-05-2024 Colonoscopy [facility] Gastrointestinal Endoscopy Patient Name: Analilia Melendrez Procedure Date: 04/05/2024 12:31 PM Date of : 1960 Admit Type: Outpatient Age: 63 Room: [facility] Gender: Male Note Status: Finalized Attending MD: Phoebe Vazquez MD, [id number] Procedure: Colonoscopy Indications: Iron deficiency anemia Providers: [...] anesthesia care under the supervision of a SOFTWARE SALES REPRESENTATIVE was determined to be medically necessary for [...] was poor. Procedure Code(s): --- Professional --- 53845, Colonoscopy, flexible; diagnostic, including collection of specimen(s) by brushing or washing, when performed (separate procedure) Diagnosis Code(s): --- Professional --- D50.9, Iron deficiency anemia, unspecified K64.8, Other hemorrhoids CPT copyright 2020 [employer]. All rights reserved. The codes documented in this report are preliminary and upon lead simulation modeling engineer review may be revised to meet current compliance requirements. Attending Participation: I personally performed the entire procedure. Scope In: 12:34:29 PM Scope Out: 12:51:09 PM MD Phoebe Fuchs MD 04/05/2024 12:56:42 PM This report has been signed electronically by Phoebe Vazquez MD Number of Addenda: 0 Note Initiated On: 04/05/2024 12:31 PM Estimated Blood Loss: Estimated blood loss was minimal. Normal [facility] EGD Study observation Meera petty 04-05-2024 [facility] Gastrointestinal Endoscopy Patient Name: Analilia Melendrez Procedure Date: 04/05/2024 12:04 PM Date of : 1960 Admit Type: Outpatient Age: 63 Room: [facility] Gender: Male Note Status: Finalized Attending MD: Phoebe Vazquez MD, [id number] Procedure: Upper GI endoscopy Indications: Iron deficiency anemia Providers: Phoebe Vazquez MD Patient Profile: Refer to note in patient chart for documentation of history and physical. Referring Physician: Susana Ramirez (Referring MD) Medicines: See the Anesthesia note for documentation of the administered medications Complications: No immediate complications. Requesting Provider: Procedure: Pre-Anesthesia Assessment: - Monitored anesthesia care under the supervision of a SOFTWARE SALES REPRESENTATIVE was determined to be medically necessary for [...] pathology results Procedure Code(s): --- Professional --- 08427, Esophagogastroduodenosc opy, flexible, transoral; with biopsy, single or multiple Diagnosis Code(s): --- Professional --- D50.9, Iron deficiency anemia, unspecified K22.89, Other specified disease of esophagus K31.89, Other diseases of stomach and duodenum CPT copyright 2020 [employer]. All rights reserved. The codes documented in this report are preliminary and upon lead simulation modeling engineer review may be revised to meet current compliance requirements. Attending Participation: I personally performed the entire procedure. Scope In: 12:23:40 PM Scope Out: 12:29:35 PM MD Phoebe Fuchs MD 04/05/2024 12:33:21 PM This report has been signed electronically by Phoebe Vazquez MD Number of Addenda: 0 Note Initiated On: 04/05/2024 12:04 PM Estimated Blood Loss: Estimated blood loss was minimal. PROVATION [facility] Radiology Study observation (narrative) [facility] Flexible sigmoidoscopy study on 04-05-2024 [facility] Gastrointestinal Endoscopy Patient Name: Analilia Melendrez Procedure Date: 04/05/2024 12:31 PM Date of : 1960 Admit Type: Outpatient Age: 63 Room: [facility] Gender: Male Note Status: Finalized Attending MD: Phoebe Vazquez MD, [id number] Procedure: Colonoscopy Indications: Iron deficiency anemia Providers: [...] anesthesia care under the supervision of a SOFTWARE SALES REPRESENTATIVE was determined to be medically necessary for [...] was poor. Procedure Code(s): --- Professional --- 18758, Colonoscopy, flexible; diagnostic, including collection of specimen(s) by brushing or washing, when performed (separate procedure) Diagnosis Code(s): --- Professional --- D50.9, Iron deficiency anemia, unspecified K64.8, Other hemorrhoids CPT copyright 2020 [employer]. All rights reserved. The codes documented in this report are preliminary and upon lead simulation modeling engineer review may be revised to meet current compliance requirements. Attending Participation: I personally performed the entire procedure. Scope In: 12:34:29 PM Scope Out: 12:51:09 PM MD Phoebe Fuchs MD 04/05/2024 12:56:42 PM This report has been signed electronically by Phoebe Vazquez MD Number of Addenda: 0 Note Initiated On: 04/05/2024 12:31 PM Estimated Blood Loss: Estimated blood loss was minimal. [facility]OVATION [facility] Radiology Study observation (narrative) [facility] GLUCOSE, BLOOD (POC)on 04-05 Glucose [Mass/Vol] 198 mg/dL Abnormal 74 - 99 mg/dL [facility] Comment on above: Location:[facility], [address], [place], [address] The Accu-Chek Inform II glucose meter has [...] Interpretation and review of laboratory results Abnormal [facility] HISTORY PHYSICALon HISTORY PHYSICAL HNO ID: [id number] Author: PHOEBE VAZQUEZ MD Service: General Surgery [...] Abs Lymph 1.00 - 4.00 k/uL 1.82 Mcdonough% % 11.0 Abs Mcdonough <0.87 k/uL 0.51 Eosin% % 0.0 Abs [...] ascending aorta repair Hyperlipidemia Hypertension Non-ST elevation NE (NSTEMI) (HCC) 06/24 Pacemaker Paroxysmal atrial fibrillation (HCC) RBBB (right bundle branch block) S/P aortic valve replacement [facility] mechanical Syncope Tachy-fernando syndrome (HCC) Tobacco abuse chronic Tobacco user Type 2 diabetes mellitus (HCC) PAST SURGICAL HISTORY PAST SURGICAL HISTORY Procedure Laterality Date ABD AORTIC ANEURYSM REPAIR ASCENDING AORTA GRAFT W/AORTIC ROOT COLONOSCOPY SCREENING In [place] CORONARY ARTERY BYPASS GRAFT HX 2016 2005 HEART CATHETERIZATION 06/24/2016 HEART VALVE REPLACEMENT 2017 Aortic x2 ;2014 HERNIA REPAIR HX PACEMAKER 06/25/2016 REPLACEMENT AORTIC VALVE W BYPASS Allergies: ALLERGIES ALLERGIES No Known Allergies Medications: CURRENT MEDICATIONS Insulin Carson, Disposable, (BD ULTRA-FINE NORBERTO PEN NEEDLE) 32 [...] daily. Blood-Glucose Meter,Continuous (FREESTYLE MANGO 3 READER) [facility] Use to check blood sugar at least [...] before eating. dicyc (more content not included)... Normal [facility] Pathology biopsy report Jose Carlos (Tiss)on 04-05-2024 AP DISCLAIMER [facility] Comment on above: Order Comment: Speci eliu Type: TISSUE SPECIMEN Ordering Facility: [facility] Address: [address] [place] [address] Result Comment: Etienne Montano Test (LDT) Disclaimer: Performance characteristics of immunohistochemical, immunofluorescent, and chromogenic in-situ hybridization tests have been determined by the performing laboratory within [facility]'s [facility] Pathology and Laboratory Medicine Department ([facility], [facility], [facility], [facility], [facility], or [facility]) in a manner consistent with CLIA requirements. One or more of these tests may not have been cleared or approved by the FDA. [facility] is regulated under CLIA as qualified to perform high-complexity testing. These tests are used for clinical purposes. These should not be regarded as investigational or for research. Positive and negative controls stain appropriately. Performed By: #### 6 6121-5 #### [facility] CLIA [id number] [address] [place] [address] STATES OF [facility] CLIA [id number] [address] [place] [address] STATES OF [place] CASE REPORT Normal [facility] Comment on above: Order Comment: Specsonja nowak Type: TISSUE SPECIMEN Ordering Facility: [facility] Address: [address] [place] [address] Result Comment: Surg [facility] Pathology Report Case: [id number] Authorizing Provider: Phoebe Vazquez MD Collected: 04/05/2024 12:25 PM Ordering Location: [facility] Endoscopy Received: 04/05/2024 02:20 PM Pathologist: Wilma Pham MD Specimens: A) - Small Bowel, Duodenum, Biopsy B) - Stomach, Biopsy, antrum C) - Esophagus, Mid, Biopsy D) - Esophagogastric Junction, Biopsy E) - Colon, Biopsy Performed By: #### 6 6121-5 #### [facility] CLIA [id number] [address] [place] [address] OF [facility] CLIA [id number] [address] [place] [address] FINAL DIAGNOSIS [facility] Comment on above: Order Comment: Speci men Type: TISSUE SPECIMEN Ordering Facility: [facility] Address: [address] [place] [address] Result Comment: A. S mall bowel, biopsy: [...] EST Performed By: #### 6 6121-5 #### [facility] CLIA [id number] [address] [place] [address] STATES OF [place] [facility] CLIA [id number] [address] [place] [address] FINAL PERFORMING LAB [place] Comment on above: Order Comment: Speci men Type: TISSUE SPECIMEN Ordering Facility: [facility] Address: [address] [place] [address] Result Comment: Diag nostic interpretation performed at: [facility], [address] [place] [address] CLIA# [id number] Candy Wrapping Machine Operator: Adriane Long MD Performed By: #### 6 6121-5 #### [facility] [place] [id number] [address] [place] [address] [place] [facility] CLIA [id number] [address] [place] [address] STATES OF [place] GROSS DESCRIPTION Normal [facility] Comment on above: Order Comment: Speci men Type: TISSUE SPECIMEN Ordering Facility: [facility] Address: [address] [place] [address] Result Comment: A. S mall Bowel, Duodenum, [...] 0.2 cm. Totally submitted in one cassette. [facility] April 05, 2024 9:22 PM Gross examination performed at [facility], [address] [place] [address] Performed By: #### 6 6121-5 #### [facility] [id number] [address] [place] [address] [place] [facility] [place] [id number] [address] [place] [address] [place] Upper GI endoscopyon 025 Upper GI endoscopy [facility] Gastrointestinal Endoscopy Patient Name: Analilia Melendrez Procedure Date: 04/05/2024 12:04 PM Date of : 1960 Admit Type: Outpatient Age: 63 Room: ME ENDO A Gender: Male Note Status: Finalized Attending MD: Phoebe Vazquez MD, [id number] Procedure: Upper GI endoscopy Indications: Iron deficiency anemia Providers: Phoebe Vazquez MD Patient Profile: Refer to note in patient chart for documentation of history and physical. Referring Physician: Susana Ramirez (Referring MD) Medicines: See the Anesthesia note for documentation of the administered medications Complications: No immediate complications. Requesting Provider: Procedure: Pre-Anesthesia Assessment: - Monitored anesthesia care under the supervision of a SOFTWARE SALES REPRESENTATIVE was determined to be medically necessary for [...] pathology results Procedure Code(s): --- Professional --- 10949, Esophagogastroduodenosc opy, flexible, transoral; with biopsy, single or multiple Diagnosis Code(s): --- Professional --- D50.9, Iron deficiency anemia, unspecified K22.89, Other specified disease of esophagus K31.89, Other diseases of stomach and duodenum CPT copyright 2020 [employer]. All rights reserved. The codes documented in this report are preliminary and upon lead simulation modeling engineer review may be revised to meet current compliance requirements. Attending Participation: I personally performed the entire procedure. Scope In: 12:23:40 PM Scope Out: 12:29:35 PM MD Phoebe Fuchs MD 04/05/2024 12:33:21 PM This report has been signed electronically by Phoebe Vazquez MD Number of Addenda: 0 Note Initiated On: 04/05/2024 12:04 PM Estimated Blood Loss: Estimated blood loss was minimal. [facility] ANALILIA MELENDREZ ([id number]) 1960 M Date Time Provider Department 03/31/24 PHOEBE VAZQUEZ During your visit today, we recorded the following information about you: Sigrid Arias RN 03/31/2024 8:47 AM Signed Patient called in and left message, would like to speak to someone regarding medication and prep prior to procedure next week. Attempted callback, no answer, LVM with CB number to office Allergies As of Date: 03/31/2024 (No Known Allergies) Date Reviewed: 12/27/2023 Reviewed by: Marianna Wagner APRN.[facility] - Fully Assessed Reason for Visit: [...] fourteen (14) days to upper arm. - bfmyuz-ypattsxk-whgbwes (CREON 36) 36,000-114,000- 180,000 unit delayed release capsule Take 2 pills by mouth with first bite of meal and take 1 pill with snacks. Max 10 per day. - Cholecalciferol, Vitamin D3, (VITAMIN D-3) 50 mcg (2,000 unit) cap Take 1 capsule by mouth once daily. 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 - scxasm-ylnxcgxo-dalksch (CREON 36) 36,000-114,000- 180,000 unit delayed release capsule Take 2 pills by mouth with first bite of meal and take 1 pill with snacks. Max 10 per day. - Cholecalciferol, Vitamin D3, (VITAMIN D-3) 50 mcg (2,000 unit) cap Take 1 capsule by mouth once daily. 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 [facility] Telephone (EFRAIN) ANALILIA MELENDREZ ([id number]) 1960 M Date Time Provider Department 03/24/24 BRANDY MOTTA During your visit today, we recorded the following information about you: Brandy Motta PA-C 03/24/2024 9:02 AM Signed TELEPHONE ENCOUNTER Analilia Melendrez's medication list was [...] SIGNATURE: Brandy Motta PA-C PATIENT NAME: Analilia Myersjeremiah DATE: March 24, 2024 Allergies As of Date: 03/24/2024 (No Known Allergies) Date Reviewed: 12/27/2023 Reviewed by: Marianna Wagner APRN.GAMEWELL OPERATOR - Fully Assessed Prescriptions as of 03/24/2024 [...] fourteen (14) days to upper arm. - odursl-otcgoqzm-malkeif (CREON 36) 36,000-114,000- 180,000 unit delayed release capsule Take 2 pills by mouth with first bite of meal and take 1 pill with snacks. Max 10 per day. - Cholecalciferol, Vitamin D3, (VITAMIN D-3) 50 mcg (2,000 unit) cap Take 1 capsule by mouth once daily. 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 [facility] ANALIL[facility]EL[facility]RE[facility] ([id number]) 1960 M Date Time Provider Department 03/24/24 PHOEBE VAZQUEZ During your visit today, we recorded the following information about you: Morenita Manuel RN 03/24/2024 9:29 AM Signed Patient call. EGD/ Colonoscopy with Dr Vazquez 04/05/24. Has questions regarding his prep. Would like a call. Thanks [phone] (home) [phone] (cell) Jenifer Varela 03/24/2024 11:18 AM Signed Thank You Austin! Allergies As of Date: 03/24/2024 (No Known Allergies) Date Reviewed: 12/27/2023 Reviewed by: Marianna Wagner APRN.GAMEWELL OPERATOR - Fully Assessed Reason for Visit: Patient Question [1465] Prescriptions as of 03/24/2024 - atorvastatin (LIPITOR) [...] fourteen (14) days to upper arm. - krxwkr-faqnfqvi-howtirg (CREON 36) 36,000-114,000- 180,000 unit delayed release capsule Take 2 pills by mouth with first bite of meal and take 1 pill with snacks. Max 10 per day. - Cholecalciferol, Vitamin D3, (VITAMIN D-3) 50 mcg (2,000 unit) cap Take 1 capsule by mouth once daily. 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) [Z79.4]01/03/2017 Pansystolic murmur [R01.1] 08/09/2023 Unspecified severe protein-calorie malnutrition*05/20/2023 Encounter Status:Closed by JENIFER VARELA on 03/24/24 Normal [facility] HbA1c (Bld)on 03-14-2024 Average glucose Estimated from glycated hemoglobin (Bld) [Mass/Vol] 171 mg/dL Normal [facility] Comment on above: Order Comment: Gini nowak Type: BLOOD SPECIMENOrdering Facility: [facility] Address: [address] [place] [address] Result Comment: eAG: (Estimated average glucose) is a calculated value from HgbA1c and is sales and service representative of the average blood glucose level in the last 2-3 month period. Performed By: #### 5 5454-3 ####[facility] [id number] [facility] [id number] [place] [address] [place] HbA1c (Bld) [Mass fraction] 7.6 % High 4.3-5.6 [facility] Comment on above: Order Comment: Gini nowak Type: BLOOD SPECIMENOrdering Facility: [facility] Address: [address] [place] [address] Result Comment: [place] Diabetes Association guidelines indicate that patients with HgbA1c in the range 5.7-6.4% are at increased risk for development of diabetes, and intervention by lifestyle modification may be beneficial. HgbA1c greater or equal to 6.5% is considered diagnostic of diabetes. Performed By: #### 5 5454-3 ####[facility] LABELIANE [id number] [place] [id number] [facility] Catia 03-13-2024 [facility] Telephone (AGFAMPLE) GERRIANALILIA ([id number]) 1960 M Date Time Provider Department 03/13/24 PHOEBE VAZQUEZ During your visit today, we [...] He had to cancel his appointment at [facility] and they will call him tomorrow with a reschedule at [facility]. Allergies As of Date: 03/13/2024 (No Known Allergies) Date Reviewed: 12/27/2023 Reviewed by: Marianna Wagner APRN.[facility] - Fully Assessed Reason for Visit: Patient Question [3675] Prescriptions as of 03/14/2024 - atorvastatin (LIPITOR) [...] fourteen (14) days to upper arm. - xuxxaf-qvvhduzh-pjyylni (CREON 36) 36,000-114,000- 180,000 unit delayed release capsule Take 2 pills by mouth with first bite of meal and take 1 pill with snacks. Max 10 per day. - Cholecalciferol, Vitamin D3, (VITAMIN D-3) 50 mcg (2,000 unit) cap Take 1 capsule by mouth once daily. 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 Normal [facility] CNPNon 02-21-2024 [facility] Telephone (AGFAMPLE) ANALILIA MELENDREZ ([id number]) 1960 M Date Time Provider Department 02/21/24 [...] Date Reviewed: 12/27/2023 Reviewed by: Marianna Wagner APRN.[facility] - Fully Assessed Reason for Visit: Patient Question [1293] Prescriptions as of 02/21/2024 - pantoprazole DR [...] fourteen (14) days to upper arm. 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 (HCC) [Z79.4]01/03/2017 Pansystolic murmur [R01.1] 08/09/2023 Unspecified severe protein-calorie malnutrition*05/20/2023 Encounter Status:Closed by SUZI HAYNES on 03/03/24 [facility] 01-14-2024 CNPN Telephone (HEMAWS) ANALILIA MELENDREZ ([id number]) 1960 M Date Time Provider Department 01/14/24 VANDANA EDWARDS During your visit today, we recorded the following information about you: Radha Anand 01/14/2024 1:34 PM Signed Lvm for patient [...] Date Reviewed: 12/27/2023 Reviewed by: Marianna Wagner APRN.GAMEWELL OPERATOR - Fully Assessed Reason for Visit: Appointment [186] Primary Visit Diagnosis:Anemia, unspecified type [D64.9] Order(s):COMPLETE BLOOD COUNT AND DIFFERENTIAL [SQCBCDIF] Order #: [id number] FUTURE Prescriptions as of 01/29/2024 - ferrous sulfate (FEROSUL) 325 mg (65 mg iron) tablet TAKE ONE TABLET BY MOUTH EVERY DAY - Blood-Glucose Sensor (FREESTYLE MANGO 3 SENSOR) daniel Apply new sensor every fourteen (14) days to upper arm. - lzjfvk-izayracm-fzqtpjm (CREON 36) 36,000-114,000- 180,000 unit delayed release capsule Take 2 pills by mouth with first bite of meal and take 1 pill with snacks. Max 10 per day. - Insulin Carson, Disposable, (BD ULTRA-FINE NORBERTO PEN NEEDLE) 32 gauge x 5/32 1 Each three times a day. - metFORMIN (GLUCOPHAGE) 500 mg tablet Take 1 tablet by mouth daily with breakfast. - Cholecalciferol, Vitamin D3, (VITAMIN D-3) 50 mcg (2,000 unit) cap Take 1 capsule by mouth once daily. 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 Normal [facility] CNPNon 12-31-2023 CNPN Telephone (ASCNORT) ANALILIA MELENDREZ ([id number]) 1960 M Date Time Provider Department 12/31/23 SABRA DESOUZA ASCDESIREE During your visit today, we recorded the following information about you: Sabra Desouza APRN.SOFTWARE SALES REPRESENTATIVE 12/31/2023 4:45 PM Signed Please cancel endo procedures at [facility] 01/07/24. Pt needs to be scheduled in the hospital setting due to medical history (Cirrhosis). I called and spoke with him and gave him the scheduling phone number so he can reschedule himself. Allergies As of Date: 12/31/2023 (No Known Allergies) Date Reviewed: 12/27/2023 Reviewed by: Marianna Wagner APRN.GAMEWELL OPERATOR - Fully Assessed Reason for Visit: Anesthesia Consult [7394] Prescriptions as of 12/31/2023 - Blood-Glucose Sensor (FREESTYLE MANGO 3 SENSOR) daniel Apply new sensor every fourteen (14) days to upper arm. - eigsdx-crcyverv-acqfkda (CREON 36) 36,000-114,000- 180,000 unit delayed release capsule Take 2 pills by mouth with first bite of meal and take 1 pill with snacks. Max 10 per day. 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 Normal [facility] CNOVon 12-27-2023 CNOV Office Visit (AGFAMP LE) ANALILIA MELNEDREZ ([id number]) 1960 M Date Time Provider Department 12/27/23 2:00 PM MARIANNA WAGNER During your visit today, we recorded the following information about you: Temperature Pulse Respiration Blood pressure 97.8 degrees 75/minute 16/minute 126/70 Weight Height 61.7 kg 1.803 m Marianna Wagner APRN.GAMEWELL OPERATOR 01/08/2024 8:36 PM Signed CHIEF COMPLAINT: Analilia [...] Got it through a diabetic clinic in [facility] has been refilling [...] lbs. Was 165 lbs prior to the intermediate in June. Has frequent nausea and vomiting. Has a low appetite Unsure of what his last A1C was BS are either really high or low. Has a freestyle mango. Taking Lantus insulin. No meal time insulin. Taking Farxiga and Metformin (has been on that for awhile). Was supposed to follow with a soft sugar cutter Hx of aortic valve replacement Had a congenital aortic aneurysm Has a pacemaker Has had heart attack He is not following with any specialists right now. States he either had a seizure or stroke and was placed in the hospital and then went to a intermediate for 5 weeks. 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 Normal [facility] CNOVon 12-24-2023 CNOV Office Visit (GSTNOR ) ANALILIA MELENDREZ ([id number]) 1960 M Date Time Provider Department 12/24/23 11:20 AM SUSANA RAMIREZ GSTNOR During your visit today, we recorded the following information about you: Pulse Blood pressure Weight Height 70/minute 132/84 61.7 kg 1.803 m Susana Ramirez APRN.GAMEWELL OPERATOR 12/24/2023 11:29 AM Signed CHIEF COMPLAINT: Patient presents with: Anemia: Diarrhea and blood in the stool This consult was requested by Marianna Wagner APRN* for an opinion regarding anemia. My final recommendations will be communicated to the requesting health care provider by way of the shared medical record for internal providers or letter via the [employer] for external providers. HPI: Analilia [...] Abs Lymph 1.00 - 4.00 k/uL 1.82 Mcdonough% % 11.0 Abs Mcdonough <0.87 k/uL 0.51 Eosin% % 0.0 Abs [...] ascending aorta repair Hyperlipidemia Hypertension Non-ST elevation NE (NSTEMI) (HCC) 06/24 Pacemaker Paroxysmal atrial fibrillation (HCC) RBBB (right bundle branch block) S/P aortic valve replacement [facility] mechanical Syncope Tachy-fernando syndrome (HCC) Tobacco abuse chronic Tobacco user Type 2 diabetes mellitus (HCC) PAST SURGICAL HISTORY Procedure Laterality Date ABD AORTIC ANEURYSM REPAIR ASCENDING AORTA GRAFT W/AORTIC ROOT COLONOSCOPY SCREENING In [place] CORONARY ARTERY BYPASS GRAFT HX 2017 2005 HEART CATHETERIZATION 06/24/2016 HEART VALVE REPLACEMENT 2017 Aortic x2 ;2014 HERNIA REPAIR HX PACEMAKER 06/25/2016 REPLACEMENT AORTIC VALVE W BYPASS Allergies: ALLERGIES No Known Allergies Medications: Insulin Carson, Disposable, (BD ULTRA-FINE NORBERTO PEN NEEDLE) 32 [...] daily. Blood-Glucose Meter,Continuous (FREESTYLE MANGO 3 READER) [facility] Use to check bl (more content not included)... Normal [facility] Catia 12-16-2023 STEPHANIEN Telephone (AGFAMPLE) ANALILIA MELENDREZ ([id number]) 1960 M Date Time Provider Department 12/16/23 MARIANNA WAGNER During your visit today, we recorded the following information about you: Suzi Haynes MA 12/16/2023 5:04 PM Signed ----- Message from Marianna Wagner APRN.GAMEWELL OPERATOR sent at 12/15/2023 6:32 PM EST ----- [...] Allergies) Date Reviewed: 12/02/2023 Reviewed by: Ramy Garcia RT(R) - Fully Assessed Reason for Visit: Results [95] Prescriptions as of 12/16/2023 - Insulin Carson, Disposable, (BD ULTRA-FINE NORBERTO PEN NEEDLE) 32 [...] 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*01/03/2017 Chronic pancreatitis (HCC) [K86.1] 08/09/2023 Calcium [...] uncomplicated* 7 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] 05/20/2023 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 Normal [facility] ALLIED HEALTHon 12-08-2023 ALLIED HEALTH HNO ID: [id number] Author: ANNY DURHAM CT Service: Radiology Author [...] PATIENT PRESENTS WITH AN IMPLANTABLE OR ATTACHED SMALL ANIMAL VETERINARIAN: No RADIOLOGY DEPARTMENT: CT; Exam(s) Completed: Pancreas PERIPHERAL IV DATA: Site assessment: Clean,Dry and Intact, Site disposition Discontinued SIGNED BY: KIRA Thomas December 08, 2023 10:[address] [facility] [address] PANCREAS W IVCONon 2023 CT PANCREAS W IVCON * * *Final Report* * * DATE OF EXAM: Dec 08 2023 11:00AM [facility] 0552 - CT PANCREAS W IVCON / [...] measuring up to 2.6 cm (303:70), without branyd aneurysm. - Celiac and SMA: Atherosclerotic calcifications at the origins. - Portal venous system (SMV, splenic vein, portal vein and branches): Patent. - Hepatic veins: Patent. Bones/Soft Tissues: No aggressive appearing bone lesions. Lower thorax: Unremarkable. IMPRESSION: Changes of chronic calcific pancreatitis as described, essentially unchanged since at least 2016. No identifiable pancreatic mass. Radiographer Angiogram: SIGRID Transcribe Date/Time: Dec 15 2023 10:26A Dictated by : JOSE A SANCHEZ MD This examination was interpreted and the report reviewed and electronically signed by: JOSE A SANCHEZ MD on Dec 15 2023 10:37AM EST [id number] [facility] NURSING PROGon 12-08-2023 NURSING PROG HNO ID: [id number] Author: SIGRID MATA RN Service: Radiology Author [...] DATE: December 08, 2023 TIME: 10:42 AM [facility] 12-07-2023 [facility] Telephone (AGFAMPLE) ANALILIA MELENDREZ ([id number]) 1960 M Date Time Provider Department 12/07[facility]23 [facility] your visit today, we recorded the following information about you: Marianna Wagner, VIRIDIANA.[facility] 12/07/2023 1:02 PM Signed New order for CT pancreas was placed since last one was discontinued. Allergies As of Date: 12/07/2023 (No Known Allergies) Date Reviewed: 12/02/2023 Reviewed by: Ramy Garcia, RT(R) - Fully Assessed Primary Visit Diagnosis:Diarrhea, unspecified type [R19.7] Other Visit Diagnosis:Acute pancreatitis, unspecified complication status, unspecified pancreatitis type [K85.90] Order(s):CT PANCREAS W IVCON [[id number]] Order #: [id number] FUTURE iv contrast (will be provided with [...] CT contrast administration guidelines link. - Insulin Carson, Disposable, (BD ULTRA-FINE NORBERTO PEN NEEDLE) 32 [...] - Blood-Glucose Meter,Continuous (FREESTYLE MANGO 3 READER) [facility] Use to check blood sugar at least four (4) times daily. 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 Normal [facility] Catia 11-25-2023 SAYRA Telephone (AGFAMPLE) ANALILIA MELENDREZ ([id number]) 1960 M Date Time Provider Department 11/25/23 MARIANNA WAGNER During your visit today, we recorded the following information about you: Twyla Espana 11/25/2023 12:59 PM Signed Denial: CPT 63536-AY PANCREAS W IVCON Denial Type: Payer Clinical [...] Yes Peer to Peer Deadline: 11/30/2023 Insurance Case#[id number] Peer to Peer opt 2 (enter tracking#) / opt 1 Denial sent to providers email Marianna Wagner APRN.CNP 11/29/2023 12:17 PM Signed Completed peer to peer for CT pancreas with IV contrast and obtained approval. # [id number] until 11/30/2023-12/31/2023 He is scheduled tomorrow for the CT. Spoke with Dr. Murillo with [facility] for reference. 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 Normal [facility] Catia 11-16-2023 SAYRA Telephone (KI) ANALILIA MELENDREZ ([id number]) 1960 M Date Time Provider Department 11/16/23 MARIANNA WAGNER During your visit today, we recorded the following information about you: Suzi Haynes MA 11/16/2023 2:33 PM Signed Patient left message stating he saw the art instructor yesterday and they are very worried about his stomach and wants him to be seen by GI sooner than 12/24/23. Patient states he has called and they cannot see him any sooner and wanted to know if there was anything Marianna could do. Please advise. FLORENTINO Jackson Brittny A, APRN.GAMEWELL OPERATOR 11/16/2023 3:07 PM Signed I have already tried to get him a sooner appointment but then he missed that appointment. I will send the request to their office but there may not be anything available. Carolina Benito 11/16/2023 4:21 PM Signed Unfortunately, we do not have any openings sooner as of right now. I would suggest if he is needing to be seen urgently to contact central scheduling at if he is willing to go to any location for care. We did add him to the wait list. Marianna Ingram APRN.GAMEWELL OPERATOR 11/16/2023 4:49 PM Signed Please let the [...] tablet by mouth once daily. 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 Normal [facility] CNOVSPon 11-15-2023 CNOVS Visit (SP) Office (HEMAWS) ANALILIA MELENDREZ ([id number]) 1960 M Date Time Provider Department 11/15/23 10:30 AM VANDANA EDWARDS During your visit today, we recorded the following information about you: Temperature Pulse Blood pressure Weight 97.7 degrees 106/minute 141/105 59.9 kg Height 1.778 m Jerry Vandana 11/15/2023 2:14 PM Signed Progress Note Analilia [...] uses NSAIDs. Occasional reflux. He was in intermediate for 6 weeks in june for rehab [...] ascending aorta repair Hyperlipidemia Hypertension Non-ST elevation NE (NSTEMI) (HCC) 06/24 Pacemaker Paroxysmal atrial fibrillation [...] 2 Blood-Glucose Meter,Continuous (FREESTYLE MANGO 3 READER) [facility] Use to check blood sugar at least [...] 1 tablet by mouth once daily. Insulin Carson, Disposable, (NORBERTO PEN NEEDLE) 32 gauge x [...] Cans o (more content not included)... Normal [facility] ANALIL[facility] MELENDREZ ([id number]) 1960 M Date Time Provider Department 11/07/23 MARIANNA WAGNER During your visit today, we recorded the following information about you: Marianna Wagner APRN.CNP 11/07/2023 7:[address] abd showed dilatation of the pancreatic duct possibly due to chronic pancreatitis.I placed an order for a CT for his pancreas. Suzi Haynes MA 11/09/2023 1:54 PM Signed Patient informed of results and additional imaging ordered. Suzi Haynes MA Allergies As of Date: 11/07/2023 (No Known Allergies) Date Reviewed: 10/14/2023 Reviewed by: Marianna Wagner APRN.[facility] - Fully Assessed Reason for Visit: Results [95] Orders [681] Primary Visit Diagnosis:Diarrhea, unspecified type [R19.7] Other Visit Diagnosis:Acute pancreatitis, unspecified complication status, unspecified pancreatitis type [K85.90] Order(s):CT PANCREAS W IVCON [[id number]] Order #: [id number] FUTURE Prescriptions as of 11/09/2023 - metFORMIN [...] tablet by mouth once daily. 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 Normal [facility] .Auto Diffon 10-30-2023 Basophil, Absolute 0.1 10 3/mcL Normal 0.0-0.2 [facility] Comment on above: Performed By: #### A NIETSH, ALC, MORPH, ACETA, CBC, LIP, ADIFF, TROPHS, MG, MDW, CMP, NICOLLE, GFR #### [address] [address] Basophils/100 WBC (Bld) 1.3 % Normal 0.0-2.5 [facility] Comment on above: Performed By: #### A NITESH, ALC, MORPH, ACETA, CBC, LIP, ADIFF, TROPHS, MG, MDW, CMP, NICOLLE, GFR #### [address] [address] Eosinophil, Absolute 0.0 10 3/mcL Normal 0.0-0.7 [facility] Comment on above: Performed By: #### A NITESH, ALC, MORPH, ACETA, CBC, LIP, ADIFF, TROPHS, MG, MDW, CMP, NICOLLE, GFR #### [address] [address] Eosinophils/100 WBC (Bld) 0.3 % Normal 0.0-7.0 [facility] Comment on above: Performed By: #### A NITESH, ALC, MORPH, ACETA, CBC, LIP, ADIFF, TROPHS, MG, MDW, CMP, NICOLLE, GFR #### [address] [address] Lymphocyte, Absolute 1.3 10 3/mcL Normal 0.9-4.3 [facility] Comment on above: Performed By: #### A NITESH, ALC, MORPH, ACETA, CBC, LIP, ADIFF, TROPHS, MG, MDW, CMP, NICOLLE, GFR #### [address] [address] Lymphocytes/100 WBC (Bld) 24.0 % Normal 20.0-40.0 [facility] Comment on above: Performed By: #### A NITESH, ALC, MORPH, ACETA, CBC, LIP, ADIFF, TROPHS, MG, MDW, CMP, NICOLLE, GFR #### [address] [address] Monocyte, Absolute 0.4 10 3/mcL Normal 0.1-1.4 [facility] Comment on above: Performed By: #### A NITESH, ALC, MORPH, ACETA, CBC, LIP, ADIFF, TROPHS, MG, MDW, CMP, NICOLLE, GFR #### [address] [address] Monocytes/100 WBC (Bld) 7.2 % Normal 2.0-13.0 [facility] Comment on above: Performed By: #### A NITESH, ALC, MORPH, ACETA, CBC, LIP, ADIFF, TROPHS, MG, MDW, CMP, NICOLLE, GFR #### [address] [address] Neutrophils/100 WBC (Bld) 67.2 % Normal 50.0-75.0 [facility] Comment on above: Performed By: #### A NITESH, ALC, MORPH, ACETA, CBC, LIP, ADIFF, TROPHS, MG, MDW, CMP, NICOLLE, GFR #### [address] [address] .GFRon 10-30-2023 GFR Non- 51 ml/min/1.73sqm Normal [facility] Comment on above: Result Comment: GFR [...] TROPHS, MG, MDW, CMP, NICOLLE, GFR #### [address] [address] GFR 61 ml/min/1.73sqm Normal [facility] Comment on above: Result Comment: GFR [...] TROPHS, MG, MDW, CMP, NICOLLE, GFR #### [address] [address] .MDWon 10-30-2023 Monocyte Distribution Width 16.35 Normal 0.00-20.00 [facility] Comment on above: Result Comment: For ED adult patients suspected of sepsis, MDW<=20.0 does not rule out sepsis or risk of sepsis Performed By: #### A NITESH, ALC, MORPH, ACETA, CBC, LIP, ADIFF, TROPHS, MG, MDW, CMP, NICOLLE, GFR #### [place] [address] .Morphon 10-30-2023 Macrocytosis 2+ Normal [facility] Comment on above: Performed By: #### A NITESH, ALC, MORPH, ACETA, CBC, LIP, ADIFF, TROPHS, MG, MDW, CMP, NICOLLE, GFR #### [place] [address] Platelet Estimate Normal Normal [facility] Comment on above: Performed By: #### A NITESH, ALC, MORPH, ACETA, CBC, LIP, ADIFF, TROPHS, MG, MDW, CMP, NICOLLE, GFR #### [place] [address] .NEUABSon 10-30-2023 Neutrophil, Absolute 3.6 10 3/mcL Normal 2.3-8.1 [facility] Comment on above: Performed By: #### A NITESH, ALC, MORPH, ACETA, CBC, LIP, ADIFF, TROPHS, MG, MDW, CMP, NICOLLE, GFR #### [place] [address] ACETAon 10-30-2023 Acetaminophen [Mass/Vol] 27.4 ug/mL Normal 10.0-30.0 [facility] Comment on above: Performed By: #### A NITESH, ALC, MORPH, ACETA, CBC, LIP, ADIFF, TROPHS, MG, MDW, CMP, NICOLLE, GFR #### [place] [address] Keren 10-30-2023 Ethanol Level <3 Normal 0-3 [facility] Comment on above: Performed By: #### A NITESH, ALC, MORPH, ACETA, CBC, LIP, ADIFF, TROPHS, MG, MDW, CMP, NICOLLE, GFR #### [place] [address] CBCon 10-30-2023 Erythrocyte distribution width (RBC) [Ratio] 14.8 % Normal 11.5-15.5 [facility] Comment on above: Performed By: #### A NITESH, ALC, MORPH, ACETA, CBC, LIP, ADIFF, TROPHS, MG, MDW, CMP, NICOLLE, GFR #### [address] [address] Hematocrit (Bld) [Volume fraction] 28.5 % Low 40.0-52.0 [facility] Comment on above: Performed By: #### A NITESH, ALC, MORPH, ACETA, CBC, LIP, ADIFF, TROPHS, MG, MDW, CMP, NICOLLE, GFR #### [place] [address] Hgb 9.8 G/dL Low 13.0-17.5 [facility] Comment on above: Performed By: #### A NITESH, ALC, MORPH, ACETA, CBC, LIP, ADIFF, TROPHS, MG, MDW, CMP, NICOLLE, GFR #### [address] [address] MCH (RBC) [Entitic mass] 38.1 pg High 27.0-33.0 [facility] Comment on above: Performed By: #### A NITESH, ALC, MORPH, ACETA, CBC, LIP, ADIFF, TROPHS, MG, MDW, CMP, NICOLLE, GFR #### [address] [address] MCHC 34.5 G/dL Normal 32.0-36.0 [facility] Comment on above: Performed By: #### A NITESH, ALC, MORPH, ACETA, CBC, LIP, ADIFF, TROPHS, MG, MDW, CMP, NICOLLE, GFR #### [address] [address] MCV (RBC) [Entitic vol] 110.2 fL High 81.0-100.0 [facility] Comment on above: Performed By: #### A NITESH, ALC, MORPH, ACETA, CBC, LIP, ADIFF, TROPHS, MG, MDW, CMP, NICOLLE, GFR #### [address] [address] Platelet 176 10 3/mcL Normal 150-450 [facility] Comment on above: Performed By: #### A NITESH, ALC, MORPH, ACETA, CBC, LIP, ADIFF, TROPHS, MG, MDW, CMP, NICOLLE, GFR #### [address] [address] Platelet mean volume (Bld) [Entitic vol] 8.8 fL Normal 6.4-10.5 [facility] Comment on above: Performed By: #### A NITESH, ALC, MORPH, ACETA, CBC, LIP, ADIFF, TROPHS, MG, MDW, CMP, NICOLLE, GFR #### [address] [address] RBC 2.58 10 6/mcL Low 4.50-6.00 [facility] Comment on above: Performed By: #### A NITESH, ALC, MORPH, ACETA, CBC, LIP, ADIFF, TROPHS, MG, MDW, CMP, NICOLLE, GFR #### [address] [address] WBC 5.3 10 3/mcL Normal 4.5-10.8 [facility] Comment on above: Performed By: #### A NITESH, ALC, MORPH, ACETA, CBC, LIP, ADIFF, TROPHS, MG, MDW, CMP, NICOLLE, GFR #### [address] [address] CMPon 10-30-2023 Albumin Level 1.9 G/dL Low 3.4-4.8 [facility] Comment on above: Performed By: #### A NITESH, ALC, MORPH, ACETA, CBC, LIP, ADIFF, TROPHS, MG, MDW, CMP, NICOLLE, GFR #### [address] [address] Albumin/Globulin [Mass ratio] 0.6 {ratio} Low 1.1-2.5 [facility] Comment on above: Performed By: #### A NITESH, ALC, MORPH, ACETA, CBC, LIP, ADIFF, TROPHS, MG, MDW, CMP, NICOLLE, GFR #### [address] [address] ALP [Catalytic activity/Vol] 105 U/L Normal 40-135 [facility] Comment on above: Performed By: #### A NITESH, ALC, MORPH, ACETA, CBC, LIP, ADIFF, TROPHS, MG, MDW, CMP, NICOLLE, GFR #### [address] [address] ALT [Catalytic activity/Vol] 19 U/L Normal 16-63 [facility] Comment on above: Performed By: #### A NITESH, ALC, MORPH, ACETA, CBC, LIP, ADIFF, TROPHS, MG, MDW, CMP, NICOLLE, GFR #### [address] [address] AST [Catalytic activity/Vol] 45 U/L High 10-40 [facility] Comment on above: Performed By: #### A NITESH, ALC, MORPH, ACETA, CBC, LIP, ADIFF, TROPHS, MG, MDW, CMP, NICOLLE, GFR #### [address] [address] Bili Total 0.2 mg/dL Normal 0.2-1.0 [facility] Comment on above: Result Comment: Use of this assay is not recommended for patients undergoing treatment with eltrombopag due to the potential for falsely elevated results. Performed By: #### A NITESH, ALC, MORPH, ACETA, CBC, LIP, ADIFF, TROPHS, MG, MDW, CMP, NICOLLE, GFR #### [address] [address] BUN/Creatinine Ratio 9 ratio Normal 7-27 [facility] Comment on above: Performed By: #### A NITESH, ALC, MORPH, ACETA, CBC, LIP, ADIFF, TROPHS, MG, MDW, CMP, NICOLLE, GFR #### [address] [address] Calcium [Mass/Vol] 7.9 mg/dL Low 8.4-10.2 [facility] Comment on above: Performed By: #### A NITESH, ALC, MORPH, ACETA, CBC, LIP, ADIFF, TROPHS, MG, MDW, CMP, NICOLLE, GFR #### [place] [address] Chloride [Moles/Vol] 103 mmol/L Normal 98-107 [facility] Comment on above: Performed By: #### A NITESH, ALC, MORPH, ACETA, CBC, LIP, ADIFF, TROPHS, MG, MDW, CMP, NICOLLE, GFR #### [place] [address] CO2 [Moles/Vol] 36 mmol/L High 23-31 [facility] Comment on above: Performed By: #### A NITESH, ALC, MORPH, ACETA, CBC, LIP, ADIFF, TROPHS, MG, MDW, CMP, NICOLLE, GFR #### [place] [address] Creatinine [Mass/Vol] 1.42 mg/dL High 0.70-1.30 [facility] Comment on above: Result Comment: Test ing performed on Siemens Dimension EXL analyzer using a modified kinetic Michael technique. Performed By: #### A NITESH, ALC, MORPH, ACETA, CBC, LIP, ADIFF, TROPHS, MG, MDW, CMP, NICOLLE, GFR #### [place] [address] Electrolyte Balance 5.0 mEq/L Normal 4.0-15.0 [facility] Comment on above: Performed By: #### A NITESH, ALC, MORPH, ACETA, CBC, LIP, ADIFF, TROPHS, MG, MDW, CMP, NICOLLE, GFR #### [place] [address] Globulin 3.2 G/dL Normal [facility] Comment on above: Performed By: #### A NITESH, ALC, MORPH, ACETA, CBC, LIP, ADIFF, TROPHS, MG, MDW, CMP, NICOLLE, GFR #### [place] [address] Glucose [Mass/Vol] 141 mg/dL High 80-115 [facility] Comment on above: Performed By: #### A NITESH, ALC, MORPH, ACETA, CBC, LIP, ADIFF, TROPHS, MG, MDW, CMP, NICOLLE, GFR #### [address] [address] Potassium [Moles/Vol] 3.5 mmol/L Normal 3.5-5.1 [facility] Comment on above: Performed By: #### A NITESH, ALC, MORPH, ACETA, CBC, LIP, ADIFF, TROPHS, MG, MDW, CMP, NICOLLE, GFR #### [address] [address] Sodium [Moles/Vol] 144 mmol/L Normal 136-145 [facility] Comment on above: Performed By: #### A NITESH, ALC, MORPH, ACETA, CBC, LIP, ADIFF, TROPHS, MG, MDW, CMP, NICOLLE, GFR #### [address] [address] Total Protein 5.1 G/dL Low 6.4-8.2 [facility] Comment on above: Performed By: #### A NITESH, ALC, MORPH, ACETA, CBC, LIP, ADIFF, TROPHS, MG, MDW, CMP, NICOLLE, GFR #### [address] [address] Urea nitrogen [Mass/Vol] 13 mg/dL Normal 7-18 [facility] Comment on above: Performed By: #### A NITESH, ALC, MORPH, ACETA, CBC, LIP, ADIFF, TROPHS, MG, MDW, CMP, NICOLLE, GFR #### [address] [address] [address] ABD/PELVIS W/ IV CONTRAST ONLYon 10-30-2023 [...] Date: 10/30/2023 5:39:58 PM Ordering Provider: ANN-MARIE White [facility] CT HEAD OR BRAIN W/O CONTRAS Ton [...] 10/30/2023 5:19:12 PM Ordering Provider: ANN-MARIE White [facility] LABORATORYOrdered By: Jaspal Calix on 10-30-2023 [...] above: Interpretive Data: T esting performed on Siemens Dimension EXL analyzer using a modified kinetic [...] ng/L Male: 0-76 ng/L Testing performed on [employer] using a homogeneous sandwich chemiluminescent immunoassay based on [employer] technology. Urea nitrogen [Mass/Vol] 13 mg/dL Normal 7 - 18 mg/dL AO ADM SS Urea nitrogen/Creatinine [Mass ratio] 9 ratio Normal 7 - 27 ratio AO ADM SS WBC (Bld) [#/Vol] 5.3 103/mcL Normal 4.5 - 10.8 10^3/mcL AO Workflow SS LIPon 10-30-2023 Lipase Level <6 Low 16-77 [facility] Comment on above: Performed By: #### A NITESH, ALC, MORPH, ACETA, CBC, LIP, ADIFF, TROPHS, MG, MDW, CMP, NICOLLE, GFR #### [address] [address] MGon 10-30-2023 Magnesium [Mass/Vol] 1.9 mg/dL Normal 1.8-2.4 [facility] Comment on above: Performed By: #### A NITESH, ALC, MORPH, ACETA, CBC, LIP, ADIFF, TROPHS, MG, MDW, CMP, NICOLLE, GFR #### [address] [address] SALon 10-30-2023 Salicylate Level 12.1 mg/dL Normal 2.8-20.0 [facility] Comment on above: Performed By: #### A NITESH, ALC, MORPH, ACETA, CBC, LIP, ADIFF, TROPHS, MG, MDW, CMP, NICOLLE, GFR #### [address] [address] TROPHSon 10-30-2023 High Sensitivity Troponin I 26 ng/L Normal 0-76 [facility] Comment on above: Result Comment: High Sensitive Troponin I Reference Ranges: Female: 0-51 ng/L Male: 0-76 ng/L Testing performed on Dimension Host[employer] using a homogeneous sandwich chemiluminescent immunoassay based on [employer] technology. Performed By: #### A NITESH, ALC, MORPH, ACETA, CBC, LIP, ADIFF, TROPHS, MG, MDW, CMP, NICOLLE, GFR #### [place] [address] UAon 10-30-2023 Color (U) Yellow Normal [facility] Comment on above: Performed By: #### A NITESH, ALC, MORPH, ACETA, CBC, LIP, ADIFF, TROPHS, MG, MDW, CMP, NICOLLE, GFR #### [place] [address] Glucose (U) [Mass/Vol] 500 mg/dL Abnormal Negative [facility] Comment on above: Performed By: #### A NITESH, ALC, MORPH, ACETA, CBC, LIP, ADIFF, TROPHS, MG, MDW, CMP, NICOLLE, GFR #### [place] [address] Ketones Ql (U) Negative Normal Negative [facility] Comment on above: Performed By: #### A NITESH, ALC, MORPH, ACETA, CBC, LIP, ADIFF, TROPHS, MG, MDW, CMP, NICOLLE, GFR #### [place] [address] UA Appear Clear Normal Clear [facility] Comment on above: Performed By: #### A NITESH, ALC, MORPH, ACETA, CBC, LIP, ADIFF, TROPHS, MG, MDW, CMP, NICOLLE, GFR #### [place] [address] UA Blood Negative Normal Negative [facility] Comment on above: Performed By: #### A NITESH, ALC, MORPH, ACETA, CBC, LIP, ADIFF, TROPHS, MG, MDW, CMP, NICOLLE, GFR #### [place] [address] UA Leuk Est Negative Normal Negative [facility] Comment on above: Performed By: #### A NITESH, ALC, MORPH, ACETA, CBC, LIP, ADIFF, TROPHS, MG, MDW, CMP, NICOLLE, GFR #### [place] [address] UA Nitrite Negative Normal Negative [facility] Comment on above: Performed By: #### A NITESH, ALC, MORPH, ACETA, CBC, LIP, ADIFF, TROPHS, MG, MDW, CMP, NICOLLE, GFR #### [place] [address] UA pH >=9.0 Normal [facility] Comment on above: Performed By: #### A NITESH, ALC, MORPH, ACETA, CBC, LIP, ADIFF, TROPHS, MG, MDW, CMP, NICOLLE, GFR #### [place] [address] UA Protein Negative Normal Negative [facility] Comment on above: Performed By: #### A NITESH, ALC, MORPH, ACETA, CBC, LIP, ADIFF, TROPHS, MG, MDW, CMP, NICOLLE, GFR #### [place] [address] UA Spec Grav 1.015 Normal 1.015-1.025 [facility] Comment on above: Performed By: #### A NITESH, ALC, MORPH, ACETA, CBC, LIP, ADIFF, TROPHS, MG, MDW, CMP, NICOLLE, GFR #### [place] [address] UA Specimen Type Not Given Normal [facility] Comment on above: Performed By: #### A NITESH, ALC, MORPH, ACETA, CBC, LIP, ADIFF, TROPHS, MG, MDW, CMP, NICOLLE, GFR #### [place] [address] UA Urobilinogen 0.2 E.U./dL Normal 0.2-1.0 [facility] Comment on above: Performed By: #### A NITESH, ALC, MORPH, ACETA, CBC, LIP, ADIFF, TROPHS, MG, MDW, CMP, NICOLLE, GFR #### [place] [id number] Urobilinogen (U) [Mass/Vol] Negative Normal Negative [facility] Comment on above: Performed By: #### A NITESH, ALC, MORPH, ACETA, CBC, LIP, ADIFF, TROPHS, MG, MDW, CMP, NICOLLE, GFR #### [place] [address] UDRUGon 10-30-2023 Amphetamine (u) Negative Normal Negative [facility] Comment on above: Performed By: #### A NITESH, ALC, MORPH, ACETA, CBC, LIP, ADIFF, TROPHS, MG, MDW, CMP, NICOLLE, GFR #### [place] [address] Barbiturate (u) Negative Normal Negative [facility] Comment on above: Performed By: #### A NITESH, ALC, MORPH, ACETA, CBC, LIP, ADIFF, TROPHS, MG, MDW, CMP, NICOLLE, GFR #### [place] [address] Benzodiazepine (u) Negative Normal Negative [facility] Comment on above: Performed By: #### A NITESH, ALC, MORPH, ACETA, CBC, LIP, ADIFF, TROPHS, MG, MDW, CMP, NICOLLE, GFR #### [address] [address] Cannabinoid (u) Negative Normal Negative [facility] Comment on above: Performed By: #### A NITESH, ALC, MORPH, ACETA, CBC, LIP, ADIFF, TROPHS, MG, MDW, CMP, NICOLLE, GFR #### [address] [address] Cocaine Ql (U) Negative Normal Negative [facility] Comment on above: Performed By: #### A NITESH, ALC, MORPH, ACETA, CBC, LIP, ADIFF, TROPHS, MG, MDW, CMP, NICOLLE, GFR #### [address] [address] Methadone Ql (U) Negative Normal Negative [facility] Comment on above: Performed By: #### A NITESH, ALC, MORPH, ACETA, CBC, LIP, ADIFF, TROPHS, MG, MDW, CMP, NICOLLE, GFR #### [address] [address] Opiate (u) Negative Normal Negative [facility] Comment on above: Performed By: #### A NITESH, ALC, MORPH, ACETA, CBC, LIP, ADIFF, TROPHS, MG, MDW, CMP, NICOLLE, GFR #### [address] [address] PCP (u) Negative Normal Negative [facility] Comment on above: Performed By: #### A NITESH, ALC, MORPH, ACETA, CBC, LIP, ADIFF, TROPHS, MG, MDW, CMP, NICOLLE, GFR #### [address] [address] Urine Drugs screened: See Below Normal [facility] Comment on above: Result Comment: This drug [...] TROPHS, MG, MDW, CMP, NICOLLE, GFR #### [address] [address] XR CHEST 1 VIEWon 10-30-2023 XR CHEST [...] 10/30/2023 5:23:53 PM Ordering Provider: ANN-MARIE White [facility] CNCOon 10-22-2023 CNCO Letter Text Normal [facility] CT ABD/PEL WO IVCONon 2023 CT ABD/PEL WO IVCON * * *Final Report* * * DATE OF EXAM: Oct 21 2023 2:47PM [facility] 0531 - CT ABD/PEL WO IVCON [...] be communicated with the ordering provider via [employer] staff message or phone message by [employer] within 2 business days of report finalization. --END OF FINDING-- Radiographer Angiogram: PSCB Transcribe Date/Time: Oct 21 2023 3:19P Dictated by : JOSSELIN CASTELAN MD This examination was interpreted and the report reviewed and electronically signed by: JOSSELIN CASTELAN MD on Oct 21 2023 3:31PM EST [id number] ACTIONABLE Invalid Interpretation Code [facility] CT Abdomen and Pelvis WO con trastOrdered By: Ccf Provider on 10-21-2023 Interpretation and review of laboratory results Abnormal [facility] Radiology Result ACTIONABLE Abnormal [facility] Comment on above: This report contains an [...] contact your provider for the next steps. [facility] CT Abdomen and Pelvis WO con traston [...] be communicated with the ordering provider via [employer] staff message or phone message by [employer] within 2 business days of report finalization. --END OF FINDING-- Radiographer Angiogram: PSCB Transcribe Date/Time: Oct 21 2023 3:19P Dictated by : JOSSELIN CASTELAN MD This examination was interpreted and the report reviewed and electronically signed by: JOSSELIN CASTELAN MD on Oct 21 2023 3:31PM EST DIVISION OF RADIOLOGY * * *Final Report* * * DATE OF EXAM: Oct 21 2023 2:47PM [facility] 0531 - CT ABD/PEL WO IVCON [...] No additional findings. DIVISION OF RADIOLOGY Provider, [facility] - 10/21/2023 * * *Final Report* * * DATE OF EXAM: Oct 21 2023 2:47PM [facility] - CT ABD/PEL WO IVCON / PROCEDURE [...] be communicated with the ordering provider via [employer] staff message or phone message by [employer] within 2 business days of report finalization. --END OF FINDING-- Radiographer Angiogram: SIGRID Transcribe Date/Time: Oct 21 2023 3:19P Dictated by : JOSSELIN CASTELAN MD This examination was interpreted and the report reviewed and electronically signed by: JOSSELIN CASTELAN MD on Oct 21 2023 3:31PM EST [facility] Radiology Study observation (narrative) [facility] 10-19-2023 [facility] Telephone ([place]) ANALILIA MELENDREZ ([id number]) 1960 M Date Time Provider Department 10/19/23 TRISH SILVERIO During your visit today, we recorded the following information about you: Gracie Tinsley 10/19/2023 11:26 AM Signed Patient is being referred to Dr Silverio. This patient is not appropriate to offer our virtual anemia clinic. DX: Anemia Insurance: [employer] Referred by: Marianna Wagner APRN.GAMEWELL OPERATOR Please review and advise Sabra Rios LPN 10/19/2023 12:10 PM Signed First available with KEITH Maloney NP, Stephanie 10/20/2023 8:39 AM Signed Spoke with patient and scheduled. Emani Torres Allergies As of Date: 10/19/2023 (No Known Allergies) Date Reviewed: 10/14/2023 Reviewed by: Marianna Wagner APRN.GAMEWELL OPERATOR - Fully Assessed Reason for Visit: New [...] - Blood-Glucose Meter,Continuous (FREESTYLE MANGO 3 READER) [facility] Use to check blood sugar at least [...] tablet by mouth once daily. 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 Normal [facility] CNPChanel 10-17-2023 CNPN Telephone (SHIVMPJAKUB) ANALILIA MELENDREZ ([id number]) 1960 M Date Time Provider Department 10/17/23 MARIANNA WAGNER During your visit today, we recorded the following information about you: Marianna Wagner APRN.CNP 10/17/2023 2:34 PM Signed Stool positive for [...] to hematology. Referral to Dr. Silverio in [place]. Suzi Haynes MA 10/18/2023 2:46 PM Signed Patient informed of all results, recommendations, appointment information and scripts sent in. Patient states he is going to have to move one of his appointments either the GI or the CT. Per conversation with Marianna Wagner CNP advised patient not to change GI appointment, left message for [facility] radiology to move patient's CT appointment. 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 difficile diarrhea [A04.72] E. coli UTI [N39.0, B96.20] Order(s):CONSULT TO HEMATOLOGY [9014] Order #: [id number]: 1 FUTURE vancomycin (VANCOCIN) 125 mg capsuleTake [...] - Blood-Glucose Meter,Continuous (FREESTYLE MANGO 3 READER) [facility] Use to check blood sugar at least [...] tablet by mouth once daily. 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 Normal [facility] ALBUMIN/CREATININE RATIO, UR INEon 10-16-2023 Albumin DL <= 20 mg/L (U) [Mass/Vol] 135.3 mg/L [facility] Albumin/Creatinine (U) [Mass ratio] 359 mg/g High NINF - 30 mg/g [facility] Comment on above: Adult Male and Femal [...] [Mass/Vol] 37.7 mg/dL 20.0 - 300.0 mg/dL [facility] Interpretation and review of laboratory results Abnormal [facility] ALBUMIN/CREATININE RATIO, UR INEon 10-15-2023 Albumin DL <= 20 mg/L (U) [Mass/Vol] 135.3 mg/L Normal [facility] Comment on above: Order Comment: Speci men Type: URINE SPECIMENOrdering Facility: [facility] Address: [address] [place] [address] Performed By: #### U ACR ####[facility] LABCLIA [id number] [place] [address] [place] Albumin/Creatinine (U) [Mass ratio] 359 mg/g High <30 [facility] Comment on above: Order Comment: Speci men Type: URINE SPECIMENOrdering Facility: [facility] Address: [address] [place] [address] Result Comment: Adul t Male and Female Nephrotic Criteria: <30 mg/g is considered normal to mildly increased 30-300 mg/g is considered moderately increased >300 mg/g is considered severely increased KDIGO. (2013). KDIGO 2012 Clinical Practice Guideline for the Evaluation and Management of Chronic Kidney Disease. Official Journal of the International Society of Nephrology, 3(1), 1-150. Performed By: #### U ACR ####[facility] LABCLIA [id number] [place] [address] [place] Creatinine (U) [Mass/Vol] 37.7 mg/dL Normal 20.0-300.0 [facility] Comment on above: Order Comment: Speci men Type: URINE SPECIMENOrdering Facility: [facility] Address: [address] [place] [address] Performed By: #### U ACR ####[facility] LABCLIA [id number] [place] [address] [place] CBC W Auto Differential pane l (Bld)on 10-15-2023 Basophils (Bld) [#/Vol] 0.00 10*3/uL Normal <0.11 [facility] Comment on above: Order Comment: Speci men Type: BLOOD SPECIMENOrdering Facility: [facility] Address: [address] [place] [address] Performed By: #### 5 7021-8 ####[facility] LABCLIA [id number] [place] [address] [place] Basophils/100 WBC (Bld) 0.0 % Normal C [facility] Comment on above: Order Comment: Speci men Type: BLOOD SPECIMENOrdering Facility: [facility] Address: [address] [place] [address] Performed By: #### 5 7021-8 ####[facility] LABCLIA [id number] [place] [address] [place] Differential cell count method Nom (Bld) Manual Normal [facility] Comment on above: Order Comment: Speci men Type: BLOOD SPECIMENOrdering Facility: [facility] Address: [address] [place] [address] Performed By: #### 5 7021-8 ####[facility] LABCLIA [id number] [place] [address] [place] Eosinophils (Bld) [#/Vol] 0.00 10*3/uL Normal <0.46 [facility] Comment on above: Order Comment: Speci men Type: BLOOD SPECIMENOrdering Facility: [facility] Address: [address] [place] [address] Performed By: #### 5 7021-8 ####[facility] LABCLIA [id number] [place] [address] [place] Eosinophils/100 WBC (Bld) 0.0 % Normal [facility] Comment on above: Order Comment: Speci men Type: BLOOD SPECIMENOrdering Facility: [facility] Address: [address] [place] [address] Performed By: #### 5 7021-8 ####[facility] LABCLIA [id number] [place] [address] [place] Erythrocyte distribution width (RBC) [Ratio] 13.3 % Normal 11.5-15.0 [facility] Comment on above: Order Comment: Speci men Type: BLOOD SPECIMENOrdering Facility: [facility] Address: [address] [place] [address] Performed By: #### 5 7021-8 ####[facility] LABIA [id number] [place] [address] [place] Hematocrit (Bld) [Volume fraction] 31.8 % Low 39.0-51.0 [facility] Comment on above: Order Comment: Speci men Type: BLOOD SPECIMENOrdering Facility: [facility] Address: [address] [place] [address] Performed By: #### 5 7021-8 ####[facility] LABIA [id number] [place] [address] [place] Hemoglobin (Bld) [Mass/Vol] 10.0 g/dL Low 13.0-17.0 [facility] Comment on above: Order Comment: Speci men Type: BLOOD SPECIMENOrdering Facility: [facility] Address: [address] [place] [address] Performed By: #### 5 7021-8 ####[facility] LABIA [id number] [place] [address] [place] Lymphocytes (Bld) [#/Vol] 1.82 10*3/uL Normal 1.00-4.00 [facility] Comment on above: Order Comment: Speci men Type: BLOOD SPECIMENOrdering Facility: [facility] Address: [address] [place] [address] Performed By: #### 5 7021-8 ####[facility] LABIA [id number] [place] [address] [place] Lymphocytes/100 WBC (Bld) 39.0 % Normal [facility] Comment on above: Order Comment: Speci men Type: BLOOD SPECIMENOrdering Facility: [facility] Address: [address] [place] [address] Performed By: #### 5 7021-8 ####[facility] LABS[facility] [id number] [place] [address] [place] MCH (RBC) [Entitic mass] 37.3 pg High 26.0-34.0 [facility] Comment on above: Order Comment: Speci men Type: BLOOD SPECIMENOrdering Facility: [facility] Address: [address] [place] [address] Performed By: #### 5 7021-8 ####[facility] [id number] [place] [address] [place] MCHC (RBC) [Mass/Vol] 31.4 g/dL Normal 30.5-36.0 [facility] Comment on above: Order Comment: Speci men Type: BLOOD SPECIMENOrdering Facility: [facility] Address: [address] [place] [address] Performed By: #### 5 7021-8 ####[facility] [id number] [place] [address] [place] MCV (RBC) [Entitic vol] 118.7 fL High 80.0-100.0 C [facility] Comment on above: Order Comment: Speci men Type: BLOOD SPECIMENOrdering Facility: [facility] Address: [address] [place] [address] Performed By: #### 5 7021-8 ####[facility] LABS[facility] [id number] [place] [address] [place] Monocytes (Bld) [#/Vol] 0.51 10*3/uL Normal <0.87 [facility] Comment on above: Order Comment: Speci men Type: BLOOD SPECIMENOrdering Facility: [facility] Address: [address] [place] [address] Performed By: #### 5 7021-8 ####[facility] LABS[facility] [id number] [place] [address] [place] Monocytes/100 WBC (Bld) 11.0 % Normal [facility] Comment on above: Order Comment: Speci men Type: BLOOD SPECIMENOrdering Facility: [facility] Address: [address] [place] [address] Performed By: #### 5 7021-8 ####[facility] LABCLIA [id number] [place] [address] [place] MYELO% 1.0 % Normal [facility] Comment on above: Order Comment: Speci men Type: BLOOD SPECIMENOrdering Facility: [facility] Address: [address] [place] [address] Performed By: #### 5 7021-8 ####[facility] LABCLIA [id number] [place] [address] [place] Neutrophils (Bld) [#/Vol] 2.29 10*3/uL Normal 1.45-7.50 [facility] Comment on above: Order Comment: Speci men Type: BLOOD SPECIMENOrdering Facility: [facility] Address: [address] [place] [address] Performed By: #### 5 7021-8 ####[facility] LABCLIA [id number] [place] [address] [place] Neutrophils/100 WBC (Bld) 49.0 % Normal [facility] Comment on above: Order Comment: Speci men Type: BLOOD SPECIMENOrdering Facility: [facility] Address: [address] [place] [address] Performed By: #### 5 7021-8 ####[facility] LABCLIA [id number] [place] [address] [place] Nucleated RBC (Bld) [#/Vol] 10*3/uL Normal <0.01 [facility] Comment on above: Order Comment: Speci men Type: BLOOD SPECIMENOrdering Facility: [facility] Address: [address] [place] [address] Performed By: #### 5 7021-8 ####[facility] LABIA [id number] [place] [address] [place] Nucleated RBC/100 WBC (Bld) [Ratio] 0.0 /100 WBC Normal [facility] Comment on above: Order Comment: Speci men Type: BLOOD SPECIMENOrdering Facility: [facility] Address: [address] [place] [address] Performed By: #### 5 7021-8 ####[facility] LABIA [id number] [place] [address] [place] Ovalocytes LM Ql (Bld) Few Normal Cl [facility] Comment on above: Order Comment: Speci men Type: BLOOD SPECIMENOrdering Facility: [facility] Address: [address] [place] [address] Performed By: #### 5 7021-8 ####[facility] LABIA [id number] [place] [address] [place] Platelet mean volume (Bld) [Entitic vol] 11.6 fL Normal 9.0-12.7 [facility] Comment on above: Order Comment: Speci men Type: BLOOD SPECIMENOrdering Facility: [facility] Address: [address] [place] [address] Performed By: #### 5 7021-8 ####[facility] LABIA [id number] [place] [address] [place] Platelets (Bld) [#/Vol] 202 10*3/uL Normal 150-400 [facility] Comment on above: Order Comment: Speci men Type: BLOOD SPECIMENOrdering Facility: [facility] Address: [address] [place] [address] Performed By: #### 5 7021-8 ####[facility] LABIA [id number] [place] [address] [place] Platelets Estimate (Bld) [#/Vol] Adequate Normal [facility] Comment on above: Order Comment: Speci men Type: BLOOD SPECIMENOrdering Facility: [facility] Address: [address] [place] [address] Performed By: #### 5 7021-8 ####[facility] LABCLIA [id number] [place] [address] [place] RBC (Bld) [#/Vol] 2.68 10*6/uL Low 4.20-6.00 [facility] Comment on above: Order Comment: Speci men Type: BLOOD SPECIMENOrdering Facility: [facility] Address: [address] [place] [address] Performed By: #### 5 7021-8 ####[facility] LABCLIA [id number] [place] [address] [place] RBC FRAGMENTS Few Abnormal None Seen [facility] Comment on above: Order Comment: Speci men Type: BLOOD SPECIMENOrdering Facility: [facility] Address: [address] [place] [address] Performed By: #### 5 7021-8 ####[facility] LABCLIA [id number] [place] [address] [place] RED CELL MORPH Reviewed: see result s of individual morphologies Normal [facility] Comment on above: Order Comment: Speci men Type: BLOOD SPECIMENOrdering Facility: [facility] Address: [address] [place] [address] Performed By: #### 5 7021-8 ####[facility] LABCLIA [id number] [place] [address] [place] WBC (Bld) [#/Vol] 4.67 10*3/uL Normal 3.70-11.00 [facility] Comment on above: Order Comment: Speci men Type: BLOOD SPECIMENOrdering Facility: [facility] Address: [address] [place] [address] Performed By: #### 5 7021-8 ####[facility] LABCLIA [id number] [address] [address] [place] WBC Left Shift Ql (Bld) Present Normal [facility] Comment on above: Order Comment: Speci men Type: BLOOD SPECIMENOrdering Facility: [facility] Address: [address] [place] [address] Performed By: #### 5 7021-8 ####[facility] LABCLIA [id number] [address] [address] [place] Comprehensive metabolic 2000 panelon 10-15-2023 Albumin [Mass/Vol] 2.4 g/dL Low 3.9-4.9 [facility] Comment on above: Order Comment: Speci men Type: BLOOD SPECIMENOrdering Facility: [facility] Address: [address] [place] [address] Performed By: #### 2 4323-8, 6-4, 72372-5 ####[facility] LABCLIA [id number] [place] [address] [place] ALP [Catalytic activity/Vol] 134 U/L High 38-113 [facility] Comment on above: Order Comment: Speci men Type: BLOOD SPECIMENOrdering Facility: [facility] Address: [address] [place] [address] Performed By: #### 2 4323-8, 6-4, 11698-1 ####[facility] LABCLIA [id number] [place] [id number] [place] ALT [Catalytic activity/Vol] 26 U/L Normal 10-54 [facility] Comment on above: Order Comment: Speci men Type: BLOOD SPECIMENOrdering Facility: [facility] Address: [address] [place], [place] [address] Performed By: #### 2 4323-8, 6-4, 33112-2 ####[facility] LABCLIA [id number] [place] [address] [place] Anion gap [Moles/Vol] 11 mmol/L Normal 8-15 [facility] Comment on above: Order Comment: Speci men Type: BLOOD SPECIMENOrdering Facility: [facility] Address: [address] [place] [address] Performed By: #### 2 4323-8, 2276-4, 22103-9 ####[facility] LABCLIA [id number] [place] [address] [place] AST [Catalytic activity/Vol] 64 U/L High 14-40 [facility] Comment on above: Order Comment: Speci men Type: BLOOD SPECIMENOrdering Facility: [facility] Address: [address] [place] [address] Performed By: #### 2 4323-8, 6-4, 19578-0 ####[facility] LABCLIA [id number] [place] [address] [place] Bilirubin [Mass/Vol] mg/dL Low 0.2-1.3 [facility] Comment on above: Order Comment: Speci men Type: BLOOD SPECIMENOrdering Facility: [facility] Address: [address] [place] [address] Performed By: #### 2 4323-8, 6-4, 78347-5 ####[facility] LABCLIA [id number] [place] [address] [place] Calcium [Mass/Vol] 7.9 mg/dL Low 8.5-10.2 [facility] Comment on above: Order Comment: Speci men Type: BLOOD SPECIMENOrdering Facility: [facility] Address: [address] [place] [address] Performed By: #### 2 4323-8, 6-4, 30860-8 ####[facility] LABCLIA [id number] [place] [address] [place] Chloride [Moles/Vol] 103 mmol/L Normal 98-107 [facility] Comment on above: Order Comment: Speci men Type: BLOOD SPECIMENOrdering Facility: [facility] Address: [address] [place] [address] Performed By: #### 2 4323-8, 2276-4, 37128-8 ####[facility] LABCLIA [id number] [place] [address] [place] CO2 [Moles/Vol] 28 mmol/L Normal 22-30 [facility] Comment on above: Order Comment: Speci men Type: BLOOD SPECIMENOrdering Facility: [facility] Address: [address] [place] [address] Performed By: #### 2 4323-8, 2276-4, 69962-6 ####[facility] LABCLIA [id number] [place] [address] [place] Creatinine [Mass/Vol] 1.55 mg/dL High 0.73-1.22 [facility] Comment on above: Order Comment: Speci men Type: BLOOD SPECIMENOrdering Facility: [facility] Address: [address] [place] [address] Performed By: #### 2 4323-8, 2276-4, 98925-8 ####[facility] LABCLIA [id number] [place] [address] [place] Creatinine and Glomerular filtration rate.predicted panel (S/P/Bld) 51 mL/min/1.73m??? Low >=60 [facility] Comment on above: Order Comment: Speci men Type: BLOOD SPECIMENOrdering Facility: [facility] Address: [address] [place] [address] Result Comment: Gurwinder mated Glomerular Filtration Rate [...] actual GFR. Performed By: #### 2 4323-8, 2275-4, 31066-4 ####[facility] LABCLIA [id number] [address] [address] [place] Glucose [Mass/Vol] 130 mg/dL High 74-99 [facility] Comment on above: Order Comment: Gini nowak Type: BLOOD SPECIMENOrdering Facility: [facility] Address: [address] [place] [address] Result Comment: The [place] Diabetes Association (ADA) provides guidance for cutoff [...] Standards of Medical Care in Diabetes 2016, [place] [employer]. Diabetes Care. 2016.39(Suppl 1). Performed By: #### 2 4323-8, 2275-05, 85635-3 ####[facility] LABCLIA [id number] [place] [id number] [place] Potassium [Moles/Vol] 4.8 mmol/L Normal 3.7-5.1 [facility] Comment on above: Order Comment: Gini nowak Type: BLOOD SPECIMENOrdering Facility: [facility] Address: [address] [place] [address] Performed By: #### 2 4323-8, 2275-05, 73958-2 ####[facility] LABCLIA [id number] [facility] [address] [address] [place] Protein [Mass/Vol] 5.2 g/dL Low 6.3-8.0 [facility] Comment on above: Order Comment: Speci men Type: BLOOD SPECIMENOrdering Facility: [facility] Address: [address] [place] [address] Performed By: #### 2 4323-8, 2276-4, 14155-1 ####[facility] LABCLIA [id number] [address] [address] [place] Sodium [Moles/Vol] 142 mmol/L Normal 136-144 [facility] Comment on above: Order Comment: Speci men Type: BLOOD SPECIMENOrdering Facility: [facility] Address: [address] [place] [address] Performed By: #### 2 4323-8, 2276-4, 18114-8 ####[facility] LABCLIA [id number] [place] [address] [place] Urea nitrogen [Mass/Vol] 14 mg/dL Normal 9-24 [facility] Comment on above: Order Comment: Speci men Type: BLOOD SPECIMENOrdering Facility: [facility] Address: [address] [place] [address] Performed By: #### 2 4323-8, 2276-4, 90774-8 ####[facility] LABCLIA [id number] [place] [id number] [place] Ferritin SerPl-mCncon 2023 Ferritin [Mass/Vol] 630.0 ng/mL High 30.3-565.7 [facility] Comment on above: Order Comment: Speci men Type: BLOOD SPECIMENOrdering Facility: [facility] Address: [address] [place] [address] Performed By: #### 2 4323-8, 2276-4, 37563-8 ####[facility] LABCLIA [id number] [place] [id number] [place] Folate SerPl-mCncon 10-15-19 Folate [Mass/Vol] 16.4 ng/mL Normal >4.7 [facility] Comment on above: Order Comment: Speci men Type: BLOOD SPECIMENOrdering Facility: [facility] Address: [address] [place] [address] Performed By: #### 2 284-8, 2132-9 ####[facility] LABCLIA [id number] [address] [address] [place] Iron and Iron binding capaci ty panelon 10-15-2023 Iron [Mass/Vol] 96 ug/dL Normal 41-186 [facility] Comment on above: Order Comment: Speci men Type: BLOOD SPECIMENOrdering Facility: [facility] Address: [address] [place] [address] Performed By: #### 2 4323-8, 2276-4, 50757-7 ####[facility] LABCLIA [id number] [place] [address] [place] Iron binding capacity [Mass/Vol] <113 Low 232-386 [facility] Comment on above: Order Comment: Speci men Type: BLOOD SPECIMENOrdering Facility: [facility] Address: [address] [place] [address] Performed By: #### 2 4323-8, 2276-4, 26933-9 ####[facility] LABCLIA [id number] [place] [address] [place] Iron/TIBC [Molar ratio] >85.0 High 15.0-57.0 C [facility] Comment on above: Order Comment: Speci men Type: BLOOD SPECIMENOrdering Facility: [facility] Address: [address] [place] [address] Performed By: #### 2 4323-8, 2276-4, 00304-9 ####[facility] LABCLIA [id number] [place] [id number] [place] Urinalysis complete panel (U )on 10-15-2023 Bacteria uL 1095.3 uL High Negative [facility] Bilirubin Ql (U) Negative Negative [facility] Clarity (Unsp spec) Turbid Abnormal Clear [facility] Color (U) Yellow Yellow [facility] Epithelial cells LM.HPF (Urine sed) [#/Area] None Seen /HPF [facility] Glucose Test strip (U) [Mass/Vol] 3+ Abnormal Negative [facility] Hemoglobin Ql (U) 1+ Abnormal Negative [facility] Hyaline casts (Urine sed) [#/Area] 0 /[LPF] 0 /LPF [facility] Interpretation and review of laboratory results Abnormal [facility] Ketones Ql (U) Negative Negative [facility] Leukocyte esterase Test strip Ql (U) 2+ Abnormal Negative [facility] Nitrite Ql (U) Negative Negative [facility] pH (U) 8.0 [pH] NINF - 8.5 [facility] Protein (U) [Mass/Vol] 1+ Abnormal Negative [facility] RBC LM.HPF (Urine sed) [#/Area] 6-10 /HPF Abnormal 0-2 /HPF [facility] Specific gravity (U) [Rel density] 1.020 1.005 - 1.030 [facility] Urobilinogen Ql (U) 0.2 EU/dL 0.2-1.0 EU/dL [facility] WBC LM.HPF (Urine sed) [#/Area] /[HPF] Abnormal 0-5 /HPF [facility] This test was bhavesh ped and its performance characteristics determined by [facility] [place] (RT-[facility]). It has not been cleared or approved by the FDA. [facility] is regulated under CLIA as qualified to perform high-complexity testing. This test is used for clinical purposes. It should not be regarded as investigational or for research. [facility] BACTERIA UL 1095.3 uL High Negative [facility] Comment on above: Order Comment: Speci men Type: URINE SPECIMENOrdering Facility: [facility] Address: [address] [place] [address] Performed By: #### 2 4356-8 ####[facility] LABCLIA [id number] [place] [address] [place] Bilirubin Ql (U) Negative Normal Negative [facility] Comment on above: Order Comment: Speci men Type: URINE SPECIMENOrdering Facility: [facility] Address: [address] [place] [id number] Performed By: #### 2 4356-8 ####[facility] LABCLIA [id number] [place] [address] [place] Clarity (Unsp spec) Turbid Abnormal Clear [facility] Comment on above: Order Comment: Speci men Type: URINE SPECIMENOrdering Facility: [facility] Address: [address] [place] [address] Performed By: #### 2 4356-8 ####[facility] LABCLIA [id number] [place] [address] [place] Color (U) Yellow Normal Yellow [facility] Comment on above: Order Comment: Speci men Type: URINE SPECIMENOrdering Facility: [facility] Address: [address] [place] [address] Performed By: #### 2 4356-8 ####[facility] LABCLIA [id number] [place] [address] [place] Epithelial cells LM.HPF (Urine sed) [#/Area] None Seen Normal [facility] Comment on above: Order Comment: Speci men Type: URINE SPECIMENOrdering Facility: [facility] Address: [address] [place] [address] Performed By: #### 2 4356-8 ####[facility] LABCLIA [id number] [place] [address] [place] Glucose Test strip (U) [Mass/Vol] 3+ Abnormal Negative [facility] Comment on above: Order Comment: Speci men Type: URINE SPECIMENOrdering Facility: [facility] Address: [address] [place] [address] Performed By: #### 2 4356-8 ####[facility] LABCLIA [id number] [id number] [address] [place] Hemoglobin Ql (U) 1+ Abnormal Negative [facility] Comment on above: Order Comment: Speci men Type: URINE SPECIMENOrdering Facility: [facility] Address: [address] [place] [address] Performed By: #### 2 4356-8 ####[facility] LABCLIA [id number] [place] [address] [place] Hyaline casts (Urine sed) [#/Area] 0 /[LPF] Normal 0 /LPF [facility] Comment on above: Order Comment: Speci men Type: URINE SPECIMENOrdering Facility: [facility] Address: [address] [place] [address] Performed By: #### 2 4356-8 ####[facility] LABCLIA [id number] [place] [address] [place] Ketones Ql (U) Negative Normal Negative [facility] Comment on above: Order Comment: Speci men Type: URINE SPECIMENOrdering Facility: [facility] Address: [address] [place] [address] Performed By: #### 2 4356-8 ####[facility] LABCLIA [id number] [place] [address] [place] Leukocyte esterase Test strip Ql (U) 2+ Abnormal Negative [facility] Comment on above: Order Comment: Speci men Type: URINE SPECIMENOrdering Facility: [facility] Address: [address] [place] [address] Performed By: #### 2 4356-8 ####[facility] LABCLIA [id number] [place] [address] [place] Nitrite Ql (U) Negative Normal Negative [facility] Comment on above: Order Comment: Speci men Type: URINE SPECIMENOrdering Facility: [facility] Address: [address] [place] [address] Performed By: #### 2 4356-8 ####[facility] LABCLIA [id number] [place] [address] [place] pH (U) 8.0 [pH] Normal <8.5 [facility] Comment on above: Order Comment: Speci men Type: URINE SPECIMENOrdering Facility: [facility] Address: [address] [place] [address] Performed By: #### 2 4356-8 ####[facility] LABIA [id number] [place] [address] [place] Protein (U) [Mass/Vol] 1+ Abnormal Negative [facility] Comment on above: Order Comment: Speci men Type: URINE SPECIMENOrdering Facility: [facility] Address: [address] [place] [address] Performed By: #### 2 4356-8 ####[facility] LABIA [id number] [place] [address] [place] RBC LM.HPF (Urine sed) [#/Area] 6-10 /HPF Abnormal 0-2 /HPF [facility] Comment on above: Order Comment: Speci men Type: URINE SPECIMENOrdering Facility: [facility] Address: [address] [place] [address] Performed By: #### 2 4356-8 ####[facility] LABS[facility] [id number] [place] [address] [place] Specific gravity (U) [Rel density] 1.020 Normal 1.005-1.030 [facility] Comment on above: Order Comment: Speci men Type: URINE SPECIMENOrdering Facility: [facility] Address: [address] [place] [address] Performed By: #### 2 4356-8 ####[facility] LABIA [id number] [place] [address] [place] Urobilinogen Ql (U) 0.2 EU/dL Normal 0.2-1.0 EU/dL [facility] Comment on above: Order Comment: Speci men Type: URINE SPECIMENOrdering Facility: [facility] Address: [address] [place] [address] Performed By: #### 2 4356-8 ####[facility] LABIA [id number] [place] [address] [place] WBC LM.HPF (Urine sed) [#/Area] /[HPF] Abnormal 0-5 /HPF [facility] Comment on above: Order Comment: Speci men Type: URINE SPECIMENOrdering Facility: [facility] Address: [address] [place] [address] Performed By: #### 2 4356-8 ####[facility] LABIA [id number] [place] [address] [place] Urinalysis complete pnl [...] , Intermediate >32 , Resistant >64 Abnormal [facility] Comment on above: Order Comment: Speci men Type: URINE SPECIMENOrdering Facility: [facility] Address: [address] [place] [address] Performed By: #### 2 4356-8 ####[facility] LABCLIA [id number] [place] [address] [place] Vit B12 [facility] 024 Cobalamin (Vitamin B12) [Mass/Vol] 1514 pg/mL High 232-1245 [facility] Comment on above: Order Comment: Speci men Type: BLOOD SPECIMENOrdering Facility: [facility] Address: [address] [place], [place] [address] Performed By: #### 2 284-8, 2132-9 ####[facility] LABCLIA [id number] [place] [address] [place] C diff Tox gens Stl Ql GENEVA+p robeon 10-14-2023 C. difficile toxin genes GENEVA+probe Ql (Stl) Positive Abnormal Negative for C. difficile toxin by PCR [facility] Comment on above: Order Comment: Gini nowak Type: STOOL SPECIMENOrdering Facility: [facility] Address: [address] [place] [address] Result Comment: A po sitive PCR result [...] specimen submission. Performed By: #### 5 4067-4, 51582-8, CDEIA ####[facility] LABIA [id number] [address] [place] C. DIFFICILE TOXIN BY EIAon 10-14-2023 C. difficile toxin A+B IA Ql (Stl) Not detected Normal Negative for C. difficile toxin [facility] Comment on above: Order Comment: Gini nowak Type: STOOL SPECIMENOrdering Facility: [facility] Address: [address] [place] [address] Result Comment: Toxi n EIA is less sensitive than cell cytotoxin and PCR assays. Clinical correlation of PCR positive/toxin EIA negative results is required to distinguish C. difficle colonization from disease. Performed By: #### 5 4067-4, 46058-3, CDEIA ####[facility] LABCLIA [id number] [place] [address] [place] CNOVon 10-14-2023 CNOV Office Visit ([facility]) ANALILIA MELENDREZ ([id number]) 1960 M Date Time Provider Department 10/14/23 11:20 AM MARIANNA WAGNER During your visit today, we recorded the following information about you: Temperature Pulse Respiration Blood pressure 97.6 degrees 60/minute 18/minute 122/70 Weight Height 61.2 kg 1.803 m Marianna Wagner, VIRIDIANA.[employer] OPERATOR 10/19/2023 1:25 PM Addendum CHIEF COMPLAINT: Analilia [...] lbs. Was 165 lbs prior to the intermediate in June. Has frequent nausea and vomiting. Has a low appetite Unsure of what his last A1C was BS are either really high or low. Has a freestyle mango. Taking Lantus insulin. No meal time insulin. Taking Farxiga and Metformin (has been on that for awhile). Was supposed to follow with a soft sugar cutter Hx of aortic valve replacement Had a congenital aortic aneurysm Has a pacemaker Has had heart attack He is not following with any specialists right now. States he either had a seizure or stroke and was placed in the hospital and then went to a intermediate for 5 weeks. 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 Started smoking [...] No date: Anxiety No date: Aortic aneurysm ([facility]) Comment: S/P Repair No date: Aortic aneurysm ([facility]) No date: Aortic valve disorder Comment: S/P Replacement No date: CAD (coronary artery disease) Comment: nonobstructive No date: Coronary artery disease No date: Depression No date: Diabetes mellitus, type II ([facility]) Comment: Insulin dependent No date: Hx of ascending aorta repair No date: Hyperlipidemia No date: Hypertension No date: Non-ST elevation NE (NSTEMI) ([facility]) Comment: 06/24 No date: NSTEMI (non-ST elevated myocardial infarction) (HCC) No date: Pacemaker No date: Pacemaker No date: Paroxysmal atrial fibrillation (HCC) No date: RBBB (right bundle branch block) No date: S/P aortic valve replacement Comment: 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HCC) No date: Tachy-fernando syndrome (HCC) No date: Tobacco abuse Comment: chronic No date: Tobacco user No date: Type 2 diabetes mellitus (HCC) PAST SURGICAL HISTORY No date: ABD AORTIC ANEURYSM REPAIR No date: ASCENDING AORTA GRAFT W/AORTIC ROOT 2017: CORONARY ARTERY BYPASS GRAFT HX Comment: 200506/24/2016: HEART CATHETERIZATION 2017: HEART VALVE REPLACEMENT Comment: Aortic x2 ;2015 No date: HERNIA (more content not included)... Normal [facility] G lamblia+Cryptosp Ag Stl Ql IAon 10-14-2023 G. lamblia+Cryptosporidium sp Ag IA Ql (Stl) CRYPTOSPORIDIUM ANTIGEN BY EIA: Negative for Cryptosporidium by EIA. GIARDIA ANTIGEN BY EIA: Negative for Giardia lamblia by EIA. Normal [facility] Comment on above: Performed By: #### 5 4067-4, 28804-5, CDEIA ####[facility] LABCLIA [id number] [place] [address] [place] Hemoccult Stl Ql IAon 2023 Lower GI hemoglobin IA Ql (Stl) Negative Normal Negative [facility] Comment on above: Order Comment: Speci men Type: STOOL SPECIMENOrdering Facility: [facility] Address: [address] [place] [address] Performed By: #### 2 9771-3 ####[facility] LABCLIA [id number] [place] [address] [place] O+P Spec Microon 10-14-2023 Ova and parasites identified LM Nom (Unsp spec) OVA AND PARASITE EXAM: No Parasites Seen Normal [facility] Comment on above: Performed By: #### 6 73-4 ####[facility] LABCLIA [id number] [address] [address] [facility] [place] 10-07-2023 SAYRA Telephone (AGFAMPLE) ANALILIA MELENDREZ ([id number]) 1960 M Date Time Provider Department 10/07/23 MARIANNA WAGNER During your visit today, we recorded the following information about you: Marianna Wagner APRN.GAMEWELL OPERATOR 10/07/2023 11:31 AM Signed Hgb has decreased [...] and he will call IWONA Rogel MA Allergies As of Date: 10/07/2023 (No Known Allergies) Date Reviewed: 08/09/2023 Reviewed by: Marianna Wagner APRN.GAMEWELL OPERATOR - Fully Assessed Reason for Visit: Results [95] Orders [681] Primary Visit Diagnosis:Anemia, unspecified type [D64.9] Other Visit Diagnosis:Chronic diarrhea [K52.9] Order(s):IRON AND TIBC [SQIRON] Order #: [id number] FUTURE FERRITIN [SQFERR] Order #: [id number] FUTURE FOLATE, SERUM [SQSERFOL] Order #: [id number] FUTURE VITAMIN B12 [SQB12] Order #: [id number] FUTURE COMPLETE BLOOD COUNT AND DIFFERENTIAL [SQCBCDIF] Order #: [id number] FUTURE COMPREHENSIVE METABOLIC PANEL [SQCMP] Order #: [id number] FUTURE Prescriptions as of 10/19/2023 - vancomycin [...] - Blood-Glucose Meter,Continuous (FREESTYLE MANGO 3 READER) [facility] Use to check blood sugar at least four (4) times daily. - Blood-Glucose Sensor (FREESTYLE AMNGO 3 SENSOR) daniel Apply new sensor every [...] tablet by mouth once daily. 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 Normal [facility] CBC W Auto Differential pane l (Bld)on 09-25-2023 Basophils (Bld) [#/Vol] 0.08 10*3/uL Normal <0.11 [facility] Comment on above: Order Comment: Speci men Type: BLOOD SPECIMENOrdering Facility: [facility] Address: [address] [place] [address] Performed By: #### 5 7021-8 ####[facility] LABCLIA [id number] [place] [address] [place] Basophils/100 WBC (Bld) 1.7 % Normal [facility] Comment on above: Order Comment: Speci men Type: BLOOD SPECIMENOrdering Facility: [facility] Address: [address] [place] [address] Performed By: #### 5 7021-8 ####[facility] LABCLIA [id number] [place] [address] [place] Differential cell count method Nom (Bld) Auto Normal [facility] Comment on above: Order Comment: Speci men Type: BLOOD SPECIMENOrdering Facility: [facility] Address: [address] [place] [address] Performed By: #### 5 7021-8 ####[facility] LABCLIA [id number] [place] [address] [place] Eosinophils (Bld) [#/Vol] 0.09 10*3/uL Normal <0.46 [facility] Comment on above: Order Comment: Speci men Type: BLOOD SPECIMENOrdering Facility: [facility] Address: [address] [place] [address] Performed By: #### 5 7021-8 ####[facility] LABCLIA [id number] [place] [address] [place] Eosinophils/100 WBC (Bld) 1.9 % Normal [facility] Comment on above: Order Comment: Speci men Type: BLOOD SPECIMENOrdering Facility: [facility] Address: [address] [place] [address] Performed By: #### 5 7021-8 ####[facility] LABIA [id number] [place] [address] [place] Erythrocyte distribution width (RBC) [Ratio] 14.3 % Normal 11.5-15.0 [facility] Comment on above: Order Comment: Speci men Type: BLOOD SPECIMENOrdering Facility: [facility] Address: [address] [place] [address] Performed By: #### 5 7021-8 ####[facility] LABIA [id number] [place] [address] [place] Hematocrit (Bld) [Volume fraction] 31.0 % Low 39.0-51.0 [facility] Comment on above: Order Comment: Speci men Type: BLOOD SPECIMENOrdering Facility: [facility] Address: [address] [place] [address] Performed By: #### 5 7021-8 ####[facility] LABIA [id number] [place] [address] [place] Hemoglobin (Bld) [Mass/Vol] 10.1 g/dL Low 13.0-17.0 [facility] Comment on above: Order Comment: Speci men Type: BLOOD SPECIMENOrdering Facility: [facility] Address: [address] [place] [address] Performed By: #### 5 7021-8 ####[facility] LABIA [id number] [place] [address] [place] Immature granulocytes (Bld) [#/Vol] 10*3/uL Normal <0.10 [facility] Comment on above: Order Comment: Speci men Type: BLOOD SPECIMENOrdering Facility: [facility] Address: [address] [place] [address] Performed By: #### 5 7021-8 ####[facility] LABCLIA [id number] [place] [address] [place] Immature granulocytes/100 WBC (Bld) 0.4 % Normal [facility] Comment on above: Order Comment: Speci men Type: BLOOD SPECIMENOrdering Facility: [facility] Address: [address] [place] [address] Performed By: #### 5 7021-8 ####[facility] LABCLIA [id number] [place] [address] [place] Lymphocytes (Bld) [#/Vol] 1.50 10*3/uL Normal 1.00-4.00 [facility] Comment on above: Order Comment: Speci men Type: BLOOD SPECIMENOrdering Facility: [facility] Address: [address] [place] [address] Performed By: #### 5 7021-8 ####[facility] LABCLIA [id number] [place] [address] [place] Lymphocytes/100 WBC (Bld) 31.4 % Normal [facility] Comment on above: Order Comment: Speci men Type: BLOOD SPECIMENOrdering Facility: [facility] Address: [address] [place] [address] Performed By: #### 5 7021-8 ####[facility] LABIA [id number] [place] [address] [place] MCH (RBC) [Entitic mass] 38.8 pg High 26.0-34.0 [facility] Comment on above: Order Comment: Speci men Type: BLOOD SPECIMENOrdering Facility: [facility] Address: [address] [place] [address] Performed By: #### 5 7021-8 ####[facility] LABCLIA [id number] [place] [address] [place] MCHC (RBC) [Mass/Vol] 32.6 g/dL Normal 30.5-36.0 [facility] Comment on above: Order Comment: Speci men Type: BLOOD SPECIMENOrdering Facility: [facility] Address: [address] [place] [address] Performed By: #### 5 7021-8 ####[facility] LABCLIA [id number] [place] [address] [place] MCV (RBC) [Entitic vol] 119.2 fL High 80.0-100.0 [facility] Comment on above: Order Comment: Speci men Type: BLOOD SPECIMENOrdering Facility: [facility] Address: [address] [place] [address] Performed By: #### 5 7021-8 ####[facility] LABIA [id number] [place] [address] [place] Monocytes (Bld) [#/Vol] 0.48 10*3/uL Normal <0.87 [facility] Comment on above: Order Comment: Speci men Type: BLOOD SPECIMENOrdering Facility: [facility] Address: [address] [place] [address] Performed By: #### 5 7021-8 ####[facility] LABCLIA [id number] [place] [address] [place] Monocytes/100 WBC (Bld) 10.1 % Normal C [facility] Comment on above: Order Comment: Speci men Type: BLOOD SPECIMENOrdering Facility: [facility] Address: [address] [place] [address] Performed By: #### 5 7021-8 ####[facility] LABIA [id number] [place] [address] [place] Neutrophils (Bld) [#/Vol] 2.60 10*3/uL Normal 1.45-7.50 [facility] Comment on above: Order Comment: Speci men Type: BLOOD SPECIMENOrdering Facility: [facility] Address: [address] [place] [address] Performed By: #### 5 7021-8 ####[facility] LABCLIA [id number] [place] [address] [place] Neutrophils/100 WBC (Bld) 54.5 % Normal [facility] Comment on above: Order Comment: Speci men Type: BLOOD SPECIMENOrdering Facility: [facility] Address: [address] [place] [address] Performed By: #### 5 7021-8 ####[facility] LABCLIA [id number] [place] [address] [place] Nucleated RBC (Bld) [#/Vol] 10*3/uL Normal <0.01 [facility] Comment on above: Order Comment: Speci men Type: BLOOD SPECIMENOrdering Facility: [facility] Address: [address] [place] [address] Performed By: #### 5 7021-8 ####[facility] LABCLIA [id number] [place] [address] [place] Nucleated RBC/100 WBC (Bld) [Ratio] 0.0 /100 WBC Normal [facility] Comment on above: Order Comment: Speci men Type: BLOOD SPECIMENOrdering Facility: [facility] Address: [address] [place] [address] Performed By: #### 5 7021-8 ####[facility] LABCLIA [id number] [place] [address] [place] Ovalocytes LM Ql (Bld) Few Normal Cl [facility] Comment on above: Order Comment: Speci men Type: BLOOD SPECIMENOrdering Facility: [facility] Address: [address] [place] [address] Performed By: #### 5 7021-8 ####[facility] LABCLIA [id number] [place] [address] [place] Platelet mean volume (Bld) [Entitic vol] 12.1 fL Normal 9.0-12.7 [facility] Comment on above: Order Comment: Speci men Type: BLOOD SPECIMENOrdering Facility: [facility] Address: [address] [place] [address] Performed By: #### 5 7021-8 ####[facility] LABCLIA [id number] [place] [address] [place] Platelets (Bld) [#/Vol] 189 10*3/uL Normal 150-400 [facility] Comment on above: Order Comment: Speci men Type: BLOOD SPECIMENOrdering Facility: [facility] Address: [address] [place] [address] Performed By: #### 5 7021-8 ####[facility] LABCLIA [id number] [place] [address] [place] Platelets Estimate (Bld) [#/Vol] Adequate Normal [facility] Comment on above: Order Comment: Speci men Type: BLOOD SPECIMENOrdering Facility: [facility] Address: [address] [place] [address] Performed By: #### 5 7021-8 ####[facility] LABCLIA [id number] [place] [address] [place] Polychromasia LM Ql (Bld) Slight Normal [facility] Comment on above: Order Comment: Speci men Type: BLOOD SPECIMENOrdering Facility: [facility] Address: [address] [place] [address] Performed By: #### 5 7021-8 ####[facility] LABCLIA [id number] [place] [address] [place] RBC (Bld) [#/Vol] 2.60 10*6/uL Low 4.20-6.00 [facility] Comment on above: Order Comment: Speci men Type: BLOOD SPECIMENOrdering Facility: [facility] Address: [address] [place] [address] Performed By: #### 5 7021-8 ####[facility] LABCLIA [id number] [place] [address] [place] RBC FRAGMENTS Few Abnormal None Seen [facility] Comment on above: Order Comment: Speci men Type: BLOOD SPECIMENOrdering Facility: [facility] Address: [address] [place] [address] Performed By: #### 5 7021-8 ####[facility] LABCLIA [id number] [place] [address] [place] RED CELL MORPH Reviewed: see result s of individual morphologies Normal [facility] Comment on above: Order Comment: Speci men Type: BLOOD SPECIMENOrdering Facility: [facility] Address: [address] [place] [address] Performed By: #### 5 7021-8 ####[facility] LABCLIA [id number] [place] [address] [place] WBC (Bld) [#/Vol] 4.77 10*3/uL Normal 3.70-11.00 [facility] Comment on above: Order Comment: Speci men Type: BLOOD SPECIMENOrdering Facility: [facility] Address: [address] [place] [address] Performed By: #### 5 7021-8 ####[facility] LABCLIA [id number] [place] [address] [place] Comprehensive metabolic 2000 panelon 09-25-2023 Albumin [Mass/Vol] 2.5 g/dL Low 3.9-4.9 [facility] Comment on above: Order Comment: Speci men Type: BLOOD SPECIMENOrdering Facility: [facility] Address: [address] [place] [address] Performed By: #### 2 4323-8 ####[facility] LABCLIA [id number] [place] [address] [place] ALP [Catalytic activity/Vol] 130 U/L High 38-113 [facility] Comment on above: Order Comment: Speci men Type: BLOOD SPECIMENOrdering Facility: [facility] Address: [address] [place] [address] Performed By: #### 2 4323-8 ####[facility] LABCLIA [id number] [place] [address] [place] ALT [Catalytic activity/Vol] 31 U/L Normal 10-54 [facility] Comment on above: Order Comment: Speci men Type: BLOOD SPECIMENOrdering Facility: [facility] Address: [address] [place] [address] Performed By: #### 2 4323-8 ####[facility] LABCLIA [id number] [place] [address] [place] Anion gap [Moles/Vol] 11 mmol/L Normal 8-15 [facility] Comment on above: Order Comment: Speci men Type: BLOOD SPECIMENOrdering Facility: [facility] Address: [address] [place] [address] Performed By: #### 2 4323-8 ####[facility] LABCLIA [id number] [place] [address] [place] AST [Catalytic activity/Vol] 80 U/L High 14-40 [facility] Comment on above: Order Comment: Speci men Type: BLOOD SPECIMENOrdering Facility: [facility] Address: [address] [place] [address] Performed By: #### 2 4323-8 ####[facility] LABCLIA [id number] [place] [id number] [place] Bilirubin [Mass/Vol] 0.3 mg/dL Normal 0.2-1.3 [facility] Comment on above: Order Comment: Speci men Type: BLOOD SPECIMENOrdering Facility: [facility] Address: [address] [place] [address] Performed By: #### 2 4323-8 ####[facility] LABCLIA [id number] [place] [address] [place] Calcium [Mass/Vol] 8.5 mg/dL Normal 8.5-10.2 [facility] Comment on above: Order Comment: Speci men Type: BLOOD SPECIMENOrdering Facility: [facility] Address: [address] [place] [address] Performed By: #### 2 4323-8 ####[facility] LABCLIA [id number] [place] [address] [place] Chloride [Moles/Vol] 111 mmol/L High 98-107 [facility] Comment on above: Order Comment: Speci men Type: BLOOD SPECIMENOrdering Facility: [facility] Address: [address] [place] [address] Performed By: #### 2 4323-8 ####[facility] LABCLIA [id number] [place] [address] [place] CO2 [Moles/Vol] 17 mmol/L Low 22-30 [facility] Comment on above: Order Comment: Speci men Type: BLOOD SPECIMENOrdering Facility: [facility] Address: [address] [place] [address] Performed By: #### 2 4323-8 ####[facility] LABCLIA [id number] [place] [address] [place] Creatinine [Mass/Vol] 1.06 mg/dL Normal 0.73-1.22 [facility] Comment on above: Order Comment: Speci men Type: BLOOD SPECIMENOrdering Facility: [facility] Address: [address] [place] [address] Performed By: #### 2 4323-8 ####[facility] LABCLIA [id number] [place] [address] [place] Creatinine and Glomerular filtration rate.predicted panel (S/P/Bld) 80 mL/min/1.73m??? Normal >=60 [facility] Comment on above: Order Comment: Gini nowak Type: BLOOD SPECIMENOrdering Facility: [facility] Address: [address] [place] [address] Result Comment: Gurwinder mated Glomerular Filtration Rate [...] actual GFR. Performed By: #### 2 4323-8 ####[facility] LABIA [id number] [place] [address] [place] Glucose [Mass/Vol] 99 mg/dL Normal 74-99 [facility] Comment on above: Order Comment: Gini nowak Type: BLOOD SPECIMENOrdering Facility: [facility] Address: [address] [place] [address] Result Comment: The [place] Diabetes Association (ADA) provides guidance for cutoff [...] Standards of Medical Care in Diabetes 2016, [place] [employer]. Diabetes Care. 2016.39(Suppl 1). Performed By: #### 2 4323-8 ####[facility] LABIA [id number] [place] [address] [place] Potassium [Moles/Vol] 4.0 mmol/L Normal 3.7-5.1 [facility] Comment on above: Order Comment: Gini nowak Type: BLOOD SPECIMENOrdering Facility: [facility] Address: [address] [place] [id number] Performed By: #### 2 4323-8 ####[facility] LABCLIA [id number] [place] [address] [place] Protein [Mass/Vol] 6.1 g/dL Low 6.3-8.0 [facility] Comment on above: Order Comment: Speci men Type: BLOOD SPECIMENOrdering Facility: [facility] Address: [address] [place] [address] Performed By: #### 2 4323-8 ####[facility] LABIA [id number] [place] [address] [place] Sodium [Moles/Vol] 139 mmol/L Normal 136-144 [facility] Comment on above: Order Comment: Speci men Type: BLOOD SPECIMENOrdering Facility: [facility] Address: [address] [place] [address] Performed By: #### 2 4323-8 ####[facility] LABIA [id number] [place] [address] [place] Urea nitrogen [Mass/Vol] 13 mg/dL Normal 9-24 [facility] Comment on above: Order Comment: Speci men Type: BLOOD SPECIMENOrdering Facility: [facility] Address: [address] [place] [address] Performed By: #### 2 4323-8 ####[facility] LABIA [id number] [place] [address] [place] Catia 09-24-2023 STEPHANIEN Telephone (AGFADEBBIE) ANALILIA MELENDREZ ([id number]) 1960 M Date Time Provider Department 09/24/23 [...] the restroom. States he was in a intermediate 6 weeks ago because of a seizure and the doctor in the intermediate had him on Tramadol for his stomach [...] anyway. Please advise. FLORENTINO Jackson Brittny A, APRN.CNP 09/24/2023 10:01 AM Signed I would like [...] too. I also placed some lab orders. [facility] [address] [place] [address] Appointment: [phone] Desk: [phone] Giulia Rogel MA 09/24/2023 1:56 PM Signed Patient is informed but he gets rides through his insurance so he won't be able to sweet pickle maker the kit or get the blood work done for a while. He is going to try and go to [facility] to complete labs and stool study Giulia Rogel MA Allergies As of Date: 09/24/2023 (No Known Allergies) Date Reviewed: 08/09/2023 Reviewed by: Marianna Wagner APRN.GAMEWELL OPERATOR - Fully Assessed Reason for Visit: Patient Question [1477] Primary Visit Diagnosis:Diarrhea of presumed infectious origin [R19.7] Other Visit Diagnosis:Generalized abdominal pain [R10.84] Order(s):OVA + PARA MICROSCOPIC [SQOVAP] Order #: [id number]. #:[id number] IMMUNOCHEMICAL FECAL OCCULT BLOOD TEST [SQIFOBT] Order #: [id number]. #:[id number] CRYPTOSPORIDIUM AND GIARDIA ANTIGENS BY EIA [SQOVAPSC] Order #: [id number] FUTURE C. DIFFICILE PCR [SQCDPCR] Order #: [id number] FUTURE CONSULT TO GASTROENTEROLOGY [9010] Order #: [id number]: 1 FUTURE COMPLETE BLOOD COUNT AND DIFFERENTIAL [SQCBCDIF] Order #: [id number] FUTURE COMPREHENSIVE METABOLIC PANEL [SQCMP] Order #: [id number] FUTURE Prescriptions as of 09/24/2023 - Blood-Glucose Meter,Continuous (FREESTYLE MANGO 3 READER) [facility] Use to check blood sugar at least [...] tablet by mouth once daily. - Insulin Carson, Disposable, (NORBERTO PEN NEEDLE) 32 gauge x [...] thrombocytopenia [D69.5 (more content not included)... Normal [facility] 09-13-2023 SAYRA Telephone (KI) ANALILIA MELENDREZ ([id number]) 1960 M Date Time Provider Department 09/13/23 MARIANNA WAGNER During your visit today, we recorded the following information about you: Marianna Wagner APRN.GAMEWELL OPERATOR 09/13/2023 8:59 AM Addendum Please call patient [...] Date Reviewed: 08/09/2023 Reviewed by: Marianna Wagner APRN.GAMEWELL OPERATOR - Fully Assessed Reason for Visit: Patient Update [1234] Prescriptions as of 09/14/2023 - Blood-Glucose Meter,Continuous (FREESTYLE MANGO 3 READER) [facility] Use to check blood sugar at least [...] tablet by mouth once daily. 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] 05/20/2023 prison (current) use of insulin (HCC) [Z79.4]01/03/2017 Pansystolic murmur [R01.1] 08/09/2023 Unspecified severe protein-calorie malnutrition*05/20/2023 Encounter Status:Closed by YESSICA UMANA on 09/13/23 [facility] CNPN Telephone (AGFAMPLE) ANALILIA MELENDREZ ([id number]) 1960 M Date Time Provider Department 08/20/23 MARIANNA WAGNER During your visit today, we recorded the following information about you: Giulia Rogel MA 08/20/2023 10:45 AM Signed Patient called he would like an order for maryAptible FLORENTINO Coe Julie, MA 08/23/2023 11:44 AM Signed Patient called again requesting a refill FLORENTINO Cerrato Brittny A, APRN.GAMEWELL OPERATOR 08/29/2023 2:43 PM Signed Order for Freestyle Mango sent into pharmacy. Marianna Wagner APRN.STEPHANIE 08/29/2023 2:43 PM Signed Addended by: MARIANNA WAGNER on: 08/29/2023 02:43 PM Modules accepted: Orders Andrew Ponce MA 08/30/2023 2:11 PM Signed Patient aware. Andrew Ponce MA Allergies As of Date: 08/20/2023 (No Known Allergies) Date Reviewed: 08/09/2023 Reviewed by: Marianna Wagner APRN.GAMEWELL OPERATOR - Fully Assessed Reason for Visit: Patient Question [1477] Primary Visit Diagnosis:Type 2 diabetes mellitus with [...] tablet by mouth once daily. 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 Normal [facility] CNPChanel 08-16-2023 STEPHANIEN Telephone (AGFAMPJAKUB) ANALILIA MELENDREZ ([id number]) 1960 M Date Time Provider Department 08/16/23 MARIANNA WAGNER During your visit today, we recorded the following information about you: Andrew Ponce MA 08/16/2023 2:21 PM Signed ----- Message from Marianna Wagner APRN.GAMEWELL OPERATOR sent at 08/16/2023 2:14 PM EDT ----- A1C has improved to 6.8 which is considered controlled. Continue current medications. Recheck in 6 months. Andrew Ponce MA 08/16/2023 2:21 PM Signed Pt. Notified. Reminder placed. Andrew Ponce MA Allergies As of Date: 08/16/2023 (No Known Allergies) Date Reviewed: 08/09/2023 Reviewed by: Marianna Wagner APRN.GAMEWELL OPERATOR - Fully Assessed Reason for Visit: Results [...] tablet by mouth once daily. 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]01/03/2017 Pansystolic murmur [R01.1] 08/09/2023 Unspecified severe protein-calorie malnutrition*05/20/2023 Encounter Status:Closed by ANDREW PONCE on 08/16/23 Normal [facility] Bacteria identified Cx Nom ( U)Ordered By: Franco Robbins on 08-12-2023 Interpretation and review of laboratory results Abnormal [facility] URINE CULTUREOrdered By: Col brielle Robbins on 08-12-2023 Bacteria identified Cx Nom (U) >=100,000 CFU/ml Escherichia coli Abnormal [facility] CNPNon 08-11-2023 CNPN Telephone (SHIVThe Football Social ClubJAKUB) ANALILIA MELENDREZ ([id number]) 1960 M Date Time Provider Department 08/11/23 MARIANNA WAGNER During your visit today, we recorded the following information about you: Marianna Wagner APRN.CNP 08/11/2023 6:19 PM Signed Please notify that [...] not with Lisinopril. Will forward this to home care manager since he is a complicated case. Suzi Hayens MA 08/13/2023 9:28 AM Signed Patient informed of results, recommendations and scripts sent in. Patient states [facility] not use [facility] he uses [facility] in [place] and would like scripts resent. Also patient states he does not take any supplements with vitamin B12. Please advise. Suzi Haynes MA Allergies As of Date: 08/11/2023 (No Known Allergies) Date Reviewed: 08/09/2023 Reviewed by: Marianna aWgner APRN.GAMEWELL OPERATOR - Fully Assessed Reason for Visit: Results [95] Primary Visit Diagnosis:Anemia, unspecified type [D64.9] Order(s):IMMUNOCHEMICAL FECAL OCCULT BLOOD TEST [SQIFOBT] Order #: [id number]. #:[id number] cephALEXin (KEFLEX) 500 mg capsuleTake 1 capsule [...] tablet by mouth once daily. 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 Normal [facility] 25-hydroxyvitamin D3 [Mass/V ol]on 08-10-2023 Interpretation and review of laboratory results Abnormal [facility] Cobalamin (Vitamin B12) [Mas s/Vol]on 08-10-2023 Interpretation and review of laboratory results Abnormal [facility] FERRITINon 08-10-2023 Ferritin [Mass/Vol] 561.0 ng/mL 30.3 - 5 65.7 ng/mL [facility] FOLATE, SERUMon 08-10-2023 Folate [Mass/Vol] 19.5 ng/mL 4.7 - PINF ng/mL [facility] Folate [Mass/Vol]on 08-10-19 Interpretation and review of laboratory results Normal [facility] HIV 1+2 Ab IA Qlon 4 HIV 1 and 2 Ab IA.rapid Nom (S/P/Bld) [facility] Comment on above: Test not indicated. HIV 1+2 Ab+HIV1 p24 Ag IA Ql Non-Reactive Nonreactive [facility] Comment on above: [place] Rev. Code 3701. 243(E): This information has [...] methodology for this assay has moved from Fujian Sunner Developmentaur XP to VidSys 8000 effective November 11, 2021. Please note there may be a change in the reporting units and/or reference range. HIV immunoassay testing algorithm interpretation (S/P/Bld) [Interp] [facility] Comment on above: No evidence of HIV-1 or HIV-2 infection. Should recent infection be suspected, repeat testing may be considered 2-3 weeks after this draw. Iron and Iron binding capaci ty panelon 08-10-2023 Interpretation and review of laboratory results Abnormal [facility] Iron [Mass/Vol] 108 ug/dL 41 - 186 ug/dL [facility] Iron binding capacity [Mass/Vol] ug/dL Low 232 - 386 ug/dL [facility] Iron saturation [Mass fraction] % High 15.0 - 57.0 % [facility] No Panel Informationon 08-09 [facility] Interpretation and review of laboratory results Normal [facility] PSA/PROSTATE SPECIFIC ANTIGE N SCREENINGon 08-10-2023 Prostate specific Ag [Mass/Vol] 0.78 ng/mL NINF - 2.60 ng/mL [facility] Comment on above: Total PSA test metho dology used is the Electrochemiluminescence Immunoassay by [employer]. Total PSA values by differing methodologies cannot be interchanged. VITAMIN B12on 08-10-2023 Cobalamin (Vitamin B12) [Mass/Vol] 1523 pg/mL High 232 - 1245 pg/mL [facility] VITAMIN D 25 HYDROXYon 08-09 25-hydroxyvitamin D3 [Mass/Vol] 24.0 ng/mL Low 30.0 - PINF ng/mL [facility] Comment on above: Classification of 25 [place] Vitamin D status: Deficiency: <= 20.0 ng/ml. Insufficiency: 21.0-29.0 ng/ml. Sufficiency: >= 30.0 ng/ml. 25(OH)D3 [facility] 2023 25-hydroxyvitamin D3 [Mass/Vol] 24.0 ng/mL Low >=30.0 [facility] Comment on above: Order Comment: Gini nowak Type: BLOOD SPECIMENOrdering Facility: [facility] Address: [address] [place] [address] [place] [address] Result Comment: Clas sification of 25 [place] Vitamin D status: Deficiency: <= 20.0 ng/ml. Insufficiency: 21.0-29.0 ng/ml. Sufficiency: >= 30.0 ng/ml. Performed By: #### 1 989-3 ####[facility]ORY[facility]IA [id number] [place] [address] [place] Bacteria Ur Culton [...] >32 , Resistant >64 Abnormal [facility] Comment on above: Performed By: #### 6 30-4 ####[facility]ORY[facility]IA [id number] [place] [address] [place] CBC W Auto Differential pane l (Bld)on 08-09-2023 Basophils (Bld) [#/Vol] 0.03 10*3/uL [facility] Basophils/100 WBC (Bld) 0.5 % [facility] Differential cell count method Nom (Bld) Auto [facility] Eosinophils (Bld) [#/Vol] 0.04 10*3/uL [facility] Eosinophils/100 WBC (Bld) 0.6 % [facility] Erythrocyte distribution width (RBC) [Ratio] 15.9 % High 11.5 - 15.0 % [facility] Hematocrit (Bld) [Volume fraction] 35.0 % Low 39.0 - 51.0 % [facility] Hemoglobin (Bld) [Mass/Vol] 11.4 g/dL Low 13.0 - 17.0 g/dL [facility] Immature granulocytes (Bld) [#/Vol] [facility] Immature granulocytes/100 WBC (Bld) 0.2 % [facility] Interpretation and review of laboratory results Abnormal [facility] Lymphocytes (Bld) [#/Vol] 1.31 10*3/uL [facility] Lymphocytes/100 WBC (Bld) 21.0 % [facility] MCH (RBC) [Entitic mass] 35.4 pg High 26.0 - 34.0 pg [facility] MCHC (RBC) [Mass/Vol] 32.6 g/dL 30.5 - 36.0 g/dL [facility] MCV (RBC) [Entitic vol] 108.7 fL High 80.0 - 100.0 fL [facility] Monocytes (Bld) [#/Vol] 0.57 10*3/uL NINF [facility] Monocytes/100 WBC (Bld) 9.1 % [facility] Neutrophils (Bld) [#/Vol] 4.29 10*3/uL [facility] Neutrophils/100 WBC (Bld) 68.6 % [facility] Nucleated RBC (Bld) [#/Vol] [facility] Nucleated RBC/100 WBC (Bld) [Ratio] [facility] Platelet mean volume (Bld) [Entitic vol] 10.4 fL 9.0 - 12.7 fL [facility] Platelets (Bld) [#/Vol] 195 10*3/uL [facility] RBC (Bld) [#/Vol] 3.22 10*6/uL Low 4.20 - 6.0 0 m/uL [facility] WBC (Bld) [#/Vol] 6.25 10*3/uL [facility] Basophils (Bld) [#/Vol] 0.03 10*3/uL Normal <0.11 [facility] Comment on above: Order Comment: Speci men Type: BLOOD SPECIMENOrdering Facility: [facility] Address: [address] [place] [address] Performed By: #### 5 7021-8 ####[facility] LABCLIA [id number] [place] [address] [place]#### 01325-1 ####[facility] LABCLIA [id number] [address] [place] Basophils/100 WBC (Bld) 0.5 % Normal [facility] Comment on above: Order Comment: Speci men Type: BLOOD SPECIMENOrdering Facility: [facility] Address: [address] [place] [address] Performed By: #### 5 7021-8 ####[facility] LABCLIA [id number] [place] [address] [place]#### 58172-1 ####[facility] LABCLIA [id number] [place] [address] [place] Differential cell count method Nom (Bld) Auto Normal [facility] Comment on above: Order Comment: Speci men Type: BLOOD SPECIMENOrdering Facility: [facility] Address: [address] [place] [address] Performed By: #### 5 7021-8 ####[facility] LABCLIA [id number] [place] [address] [place]#### 91350-8 ####[facility] LABCLIA [id number] [place] [address] [place] Eosinophils (Bld) [#/Vol] 0.04 10*3/uL Normal <0.46 [facility] Comment on above: Order Comment: Speci men Type: BLOOD SPECIMENOrdering Facility: [facility] Address: [address] [place] [address] Performed By: #### 5 7021-8 ####[facility] LABCLIA [id number] [place] [address] [place]#### 60524-0 ####[facility] LABCLIA [id number] [address] [place] Eosinophils/100 WBC (Bld) 0.6 % Normal [facility] Comment on above: Order Comment: Speci men Type: BLOOD SPECIMENOrdering Facility: [facility] Address: [address] [place] [address] Performed By: #### 5 7021-8 ####[facility] LABCLIA [id number] [place] [address] [place] [facility]#### 16764-3 ####[facility] LABCLIA [id number] [place] [address] [place] Erythrocyte distribution width (RBC) [Ratio] 15.9 % High 11.5-15.0 [facility] Comment on above: Order Comment: Speci men Type: BLOOD SPECIMENOrdering Facility: [facility] Address: [address] [place] [address] Performed By: #### 5 7021-8 ####[facility] LABCLIA [id number] [place] [address] [place]#### 57730-7 ####[facility] LABCLIA [id number] [place] [address] [place] Hematocrit (Bld) [Volume fraction] 35.0 % Low 39.0-51.0 [facility] Comment on above: Order Comment: Speci men Type: BLOOD SPECIMENOrdering Facility: [facility] Address: [address] [place] [address] Performed By: #### 5 7021-8 ####[facility] LABCLIA [id number] [address] [place]#### 90601-5 ####[facility] LABCLIA [id number] [place] [address] [place] Hemoglobin (Bld) [Mass/Vol] 11.4 g/dL Low 13.0-17.0 [facility] Comment on above: Order Comment: Speci men Type: BLOOD SPECIMENOrdering Facility: [facility] Address: [address] [place] [address] Performed By: #### 5 7021-8 ####[facility] LABCLIA [id number] [place] [address] [place]#### 50838-8 ####[facility] LABCLIA [id number] [place] [address] [place] Immature granulocytes (Bld) [#/Vol] 10*3/uL Normal <0.10 [facility] Comment on above: Order Comment: Speci men Type: BLOOD SPECIMENOrdering Facility: [facility] Address: [address] [place] [address] Performed By: #### 5 7021-8 ####[facility] LABCLIA [id number] [place] [address] [place]#### 80752-3 ####[facility] LABCLIA [id number] [address] [place] Immature granulocytes/100 WBC (Bld) 0.2 % Normal [facility] Comment on above: Order Comment: Speci men Type: BLOOD SPECIMENOrdering Facility: [facility] Address: [address] [place] [address] Performed By: #### 5 7021-8 ####[facility] LABCLIA [id number] [place] [address] [place]#### 34253-6 ####[facility] LABCLIA [id number] [place] [address] [place] Lymphocytes (Bld) [#/Vol] 1.31 10*3/uL Normal 1.00-4.00 [facility] Comment on above: Order Comment: Speci men Type: BLOOD SPECIMENOrdering Facility: [facility] Address: [address] [place] [address] Performed By: #### 5 7021-8 ####[facility] LABCLIA [id number] [place] [address] [place]#### 66686-0 ####[facility] LABCLIA [id number] [place] [address] [place] Lymphocytes/100 WBC (Bld) 21.0 % Normal [facility] Comment on above: Order Comment: Speci men Type: BLOOD SPECIMENOrdering Facility: [facility] Address: [address] [place] [address] Performed By: #### 5 7021-8 ####[facility] LABCLIA [id number] [place] [address] [place] [facility]#### 73521-9 ####[facility] LABCLIA [id number] [place] [address] [place] MCH (RBC) [Entitic mass] 35.4 pg High 26.0-34.0 [facility] Comment on above: Order Comment: Speci men Type: BLOOD SPECIMENOrdering Facility: [facility] Address: [address] [place] [address] Performed By: #### 5 7021-8 ####[facility] LABCLIA [id number] [place] [address] [place]#### 65519-9 ####[facility] LABCLIA [id number] [place] [address] [place] MCHC (RBC) [Mass/Vol] 32.6 g/dL Normal 30.5-36.0 [facility] Comment on above: Order Comment: Speci men Type: BLOOD SPECIMENOrdering Facility: [facility] Address: [address] [place] [address] Performed By: #### 5 7021-8 ####[facility] LABCLIA [id number] [place] [address] [place]#### 95833-2 ####[facility] LABCLIA [id number] [place] [address] [place] MCV (RBC) [Entitic vol] 108.7 fL High 80.0-100.0 [facility] Comment on above: Order Comment: Speci men Type: BLOOD SPECIMENOrdering Facility: [facility] Address: [address] [place] [address] Performed By: #### 5 7021-8 ####[facility] LABCLIA [id number] [address]#### 81729-9 ####[facility] LABCLIA [id number] [place] [address] [place] Monocytes (Bld) [#/Vol] 0.57 10*3/uL Normal <0.87 [facility] Comment on above: Order Comment: Speci men Type: BLOOD SPECIMENOrdering Facility: [facility] Address: [address] [place] [address] Performed By: #### 5 7021-8 ####[facility] LABCLIA [id number] [address]#### 59948-9 ####[facility] LABCLIA [id number] [address] [place] Monocytes/100 WBC (Bld) 9.1 % Normal [facility] Comment on above: Order Comment: Speci men Type: BLOOD SPECIMENOrdering Facility: [facility] Address: [address] [place] [address] Performed By: #### 5 7021-8 ####[facility] LABCLIA [id number] [address] [place]#### 77256-9 ####[facility] LABCLIA [id number] [place] [address] [place] Neutrophils (Bld) [#/Vol] 4.29 10*3/uL Normal 1.45-7.50 [facility] Comment on above: Order Comment: Speci men Type: BLOOD SPECIMENOrdering Facility: [facility] Address: [address] [place] [address] Performed By: #### 5 7021-8 ####[facility] LABCLIA [id number] [facility] [address] [place]#### 11722-3 ####[facility] LABCLIA [id number] [place] [id number] [place] Neutrophils/100 WBC (Bld) 68.6 % Normal [facility] Comment on above: Order Comment: Speci men Type: BLOOD SPECIMENOrdering Facility: [facility] Address: [address] [place] [address] Performed By: #### 5 7021-8 ####[facility] LABCLIA [id number] [place] [address] [place]#### 27619-0 ####[facility] LABCLIA [id number] [place] [address] [place] Nucleated RBC (Bld) [#/Vol] Normal [facility] Comment on above: Order Comment: Speci men Type: BLOOD SPECIMENOrdering Facility: [facility] Address: [address] [place] [address] Performed By: #### 5 7021-8 ####[facility] LABCLIA [id number] [place] [address] [place]#### 01054-9 ####[facility] LABCLIA [id number] [place] [id number] [place] Nucleated RBC/100 WBC (Bld) [Ratio] Normal [facility] Comment on above: Order Comment: Speci men Type: BLOOD SPECIMENOrdering Facility: [facility] Address: [facility] [place] [address] Performed By: #### 5 7021-8 ####[facility] LABCLIA [id number] [place] [address] [place]#### 65705-0 ####[facility] LABCLIA [id number] [facility] [place] [address] [place] Platelet mean volume (Bld) [Entitic vol] 10.4 fL Normal 9.0-12.7 [facility] Comment on above: Order Comment: Speci men Type: BLOOD SPECIMENOrdering Facility: [facility] Address: [facility] [place] [address] Performed By: #### 5 7021-8 ####[facility] LABCLIA [id number] [place] [address] [place]#### 01465-4 ####[facility] LABCLIA [id number] [facility] [place] [address] [place] Platelets (Bld) [#/Vol] 195 10*3/uL Normal 150-400 [facility] Comment on above: Order Comment: Speci men Type: BLOOD SPECIMENOrdering Facility: [facility] Address: [address] [place] [address] Performed By: #### 5 7021-8 ####[facility] LABCLIA [id number] [place] [address] [place]#### 33620-4 ####[facility] LABCLIA [id number] [facility] [place] [address] [place] RBC (Bld) [#/Vol] 3.22 10*6/uL Low 4.20-6.00 [facility] Comment on above: Order Comment: Speci men Type: BLOOD SPECIMENOrdering Facility: [facility] Address: [facility] [place] [address] Performed By: #### 5 7021-8 ####[facility] LABCLIA [id number] [place] [address] [place]#### 67654-3 ####[facility] LABCLIA [id number] [place] [id number] [place] WBC (Bld) [#/Vol] 6.25 10*3/uL Normal 3.70-11.00 [facility] Comment on above: Order Comment: Speci men Type: BLOOD SPECIMENOrdering Facility: [facility] Address: [address] [place] [address] Performed By: #### 5 7021-8 ####[facility] LABCLIA [id number] [address] [place]#### 49112-3 ####[facility] LABCLIA [id number] [place] [id number] [facility] [place] CNOVon 08-09-2023 CNOV Office Visit (AGFAMP LE) ANALILIA MELENDREZ ([id number]) 1960 M Date Time Provider Department 08/09/23 1:20 PM MARIANNA WAGNER During your visit today, we recorded the following information about you: Temperature Pulse Blood pressure Weight 99 degrees 98/minute 122/76 63 kg Height 1.803 m Marianna Wagner APRN.CNP 08/13/2023 12:57 PM Signed [facility] Marianna Wagner WAXER OPERATOR-GAMEWELL OPERATOR [address] [place] [address] Dept Dept. Visit Date: August 09, 2023 Mr.Steven Melendrez Date of : 1960 MRN/E #: [id number] Chief Complaint: Patient presents with: Establish Care: Previous pt. Of dr. [facility] at [facility]. Think he may have a seizure or stoke. Went to intermediate for 5 week. ([facility] hart in [facility]) Diarrhea: X 2 months. BM is orange [...] lbs. Was 165 lbs prior to the intermediate in June. Has frequent nausea and vomiting. Has a low appetite Unsure of what his last A1C was BS are either really high or low. Has a freestyle mango. Taking Lantus insulin. No meal time insulin. Taking Farxiga and Metformin (has been on that for awhile). Was supposed to follow with a soft sugar cutter Hx of aortic valve replacement Had a congenital aortic aneurysm Has a pacemaker Has had heart attack He is not following with any specialists right now. States he either had a seizure or stroke and was placed in the hospital and then went to a intermediate for 5 weeks. 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 Started smoking [...] MEDICAL HISTORY Diagnosis Date Anxiety Aortic aneurysm (HCC) S/P Repair Aortic aneurysm (HCC) Aortic valve disorder S/P Replacement CAD (coronary artery disease) nonobstructive Coronary artery disease Depression Diabetes mellitus, type II (HCC) Insulin dependent Hx of ascending aorta repair Hyperlipidemia Hypertension Non-ST elevation NE (NSTEMI) ([facility]) 06/24 NSTEMI (non-ST elevated myocardial infarction) ([facility]) Pacemaker Pacemaker Paroxysmal atrial fibrillation ([facility]) RBBB (right bundle branch block) S/P aortic valve replacement 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 Normal [facility] Comprehensive metabolic 2000 panelon 08-09-2023 Albumin [Mass/Vol] 2.7 g/dL Low 3.9 - 4.9 g/dL [facility] ALP [Catalytic activity/Vol] 211 U/L High 38 - 113 U/L [facility] ALT With P-5'-P [Catalytic activity/Vol] 53 U/L 10 - 54 U/L [facility] Anion gap [Moles/Vol] 13 mmol/L 8 - 15 mmol/L [facility] AST With P-5'-P [Catalytic activity/Vol] 179 U/L High 14 - 40 U/L [facility] Bilirubin [Mass/Vol] 0.5 mg/dL 0.2 - 1 .3 mg/dL [facility] Calcium [Mass/Vol] 8.3 mg/dL Low 8.5 - 10. 2 mg/dL [facility] Chloride [Moles/Vol] 99 mmol/L 98 - 10 7 mmol/L [facility] CO2 [Moles/Vol] 30 mmol/L 22 - 30 mmol/L [facility] Creatinine [Mass/Vol] 1.36 mg/dL High 0.73 - 1.22 mg/dL [facility] GFR/1.73 sq M.predicted among non-blacks MDRD (S/P/Bld) [Vol rate/Area] 59 mL/min/{1.73_m2} Low - PINF [facility] Comment on above: Estimated Glomerular Filtration Rate [...] 165 mg/dL High 74 - 99 mg/dL [facility] Comment on above: The [place] Diabete s Association (ADA) provides guidance for [...] Standards of Medical Care in Diabetes 2016, [place] Diabetes Association. Diabetes Care. 2016.39(Suppl 1). Potassium [Moles/Vol] 4.7 mmol/L 3.7 - 5.1 mmol/L [facility] Protein [Mass/Vol] 6.6 g/dL 6.3 - 8.0 g/dL [facility] Sodium [Moles/Vol] 142 mmol/L 136 - 144 mmol/L [facility] Urea nitrogen [Mass/Vol] 10 mg/dL 9 - 24 mg/dL [facility] Albumin [Mass/Vol] 2.7 g/dL Low 3.9-4.9 [facility] Comment on above: Order Comment: Speci men Type: BLOOD SPECIMENOrdering Facility: [facility] Address: [address] [place] [address] Performed By: #### 3 016-3, 43186-3, 51647-5, 3040-3 ####[facility] LABCLIA [id number] [place] [address] [place] ALP [Catalytic activity/Vol] 211 U/L High 38-113 [facility] Comment on above: Order Comment: Speci men Type: BLOOD SPECIMENOrdering Facility: [facility] Address: [address] [place] [address] Performed By: #### 3 016-3, 68821-3, 10343-7, 3040-3 ####[facility] LABCLIA [id number] [place] [address] [place] ALT With P-5'-P [Catalytic activity/Vol] 53 U/L Normal 10-54 [facility] Comment on above: Order Comment: Speci men Type: BLOOD SPECIMENOrdering Facility: [facility] Address: [address] [place] [address] Performed By: #### 3 016-3, 58783-6, 06343-6, 3040-3 ####[facility] LABCLIA [id number] [place] [address] [place] Anion gap [Moles/Vol] 13 mmol/L Normal 8-15 [facility] Comment on above: Order Comment: Speci men Type: BLOOD SPECIMENOrdering Facility: [facility] Address: [address] [place] [address] Performed By: #### 3 016-3, 84078-1, 14465-9, 3040-3 ####[facility] LABCLIA [id number] [place] [address] [place] AST With P-5'-P [Catalytic activity/Vol] 179 U/L High 14-40 [facility] Comment on above: Order Comment: Speci men Type: BLOOD SPECIMENOrdering Facility: [facility] Address: [address] [place] [address] Performed By: #### 3 016-3, 08006-6, 13499-6, 3040-3 ####[facility] LABCLIA [id number] [place] [address] [place] Bilirubin [Mass/Vol] 0.5 mg/dL Normal 0.2-1.3 [facility] Comment on above: Order Comment: Speci men Type: BLOOD SPECIMENOrdering Facility: [facility] Address: [address] [place] [address] Performed By: #### 3 016-3, 17996-8, 07418-6, 3040-3 ####[facility] LABCLIA [id number] [place] [address] [place] Calcium [Mass/Vol] 8.3 mg/dL Low 8.5-10.2 [facility] Comment on above: Order Comment: Speci men Type: BLOOD SPECIMENOrdering Facility: [facility] Address: [address] [place] [address] Performed By: #### 3 016-3, 53017-1, 33201-0, 3040-3 ####[facility] LABCLIA [id number] [place] [address] [place] Chloride [Moles/Vol] 99 mmol/L Normal 98-107 [facility] Comment on above: Order Comment: Speci men Type: BLOOD SPECIMENOrdering Facility: [facility] Address: [address] [place] [address] Performed By: #### 3 016-3, 54730-8, 75213-0, 3040-3 ####[facility] LABCLIA [id number] [place] [address] [place] CO2 [Moles/Vol] 30 mmol/L Normal 22-30 [facility] Comment on above: Order Comment: Gini nowak Type: BLOOD SPECIMENOrdering Facility: [facility] Address: [address] [place] [address] Performed By: #### 3 016-3, 12911-7, 78222-8, 0-3 ####[facility] LABCLIA [id number] [place] [address] [place] Creatinine [Mass/Vol] 1.36 mg/dL High 0.73-1.22 [facility] Comment on above: Order Comment: Gini nowak Type: BLOOD SPECIMENOrdering Facility: [facility] Address: [address] [place] [address] Performed By: #### 3 016-3, 20034-5, 78098-8, 0-3 ####[facility] LABCLIA [id number] [place] [address] [facility] Creatinine and Glomerular filtration rate.predicted panel (S/P/Bld) 59 mL/min/1.73m??? Low >=60 [facility] Comment on above: Order Comment: Gini nowak Type: BLOOD SPECIMENOrdering Facility: [facility] Address: [address] [place] [address] Result Comment: Gurwinder mated Glomerular Filtration Rate [...] actual GFR. Performed By: #### 3 016-3, 32780-2, 74610-2, 3040-3 ####[facility] LABCLIA [id number] [place] [address] [place] Glucose [Mass/Vol] 165 mg/dL High 74-99 [facility] Comment on above: Order Comment: Gini nowak Type: BLOOD SPECIMENOrdering Facility: [facility] Address: [address] [place] [address] Result Comment: The [place] Diabetes Association (ADA) provides guidance for cutoff [...] Standards of Medical Care in Diabetes 2016, [place] Diabetes Association. Diabetes Care. 2016.39(Suppl 1). Performed By: #### 3 016-3, 63805-5, 46541-4, 0-3 ####[facility] [employer] LABCLIA [id number] [place] [address] [place] Potassium [Moles/Vol] 4.7 mmol/L Normal 3.7-5.1 [facility] Comment on above: Order Comment: Speci men Type: BLOOD SPECIMENOrdering Facility: [facility] Address: [address] [place] [address] Performed By: #### 3 016-3, 76737-4, 31322-4, 3039-3 ####[facility] LABCLIA [id number] [place] [address] [place] Protein [Mass/Vol] 6.6 g/dL Normal 6.3-8.0 [facility] Comment on above: Order Comment: Speci men Type: BLOOD SPECIMENOrdering Facility: [facility] Address: [address] [place] [address] Performed By: #### 3 016-3, 34316-1, 87911-7, 0-3 ####[facility] LABCLIA [id number] [place] [address] [place] Sodium [Moles/Vol] 142 mmol/L Normal 136-144 [facility] Comment on above: Order Comment: Speci men Type: BLOOD SPECIMENOrdering Facility: [facility] Address: [address] [place] [address] Performed By: #### 3 016-3, 02393-8, 88999-7, 3040-3 ####[facility] LABCLIA [id number] [place] [address] [place] [facility] Urea nitrogen [Mass/Vol] 10 mg/dL Normal 9-24 [facility] Comment on above: Order Comment: Speci men Type: BLOOD SPECIMENOrdering Facility: [facility] Address: [address] [place] [address] Performed By: #### 3 016-3, 50628-5, 89072-2, 3040-3 ####[facility] LABCLIA [id number] [place] [address] [place] Ferritin SerPl-mCncon 2023 Ferritin [Mass/Vol] 561.0 ng/mL Normal 30.3-565.7 [facility] Comment on above: Order Comment: Speci men Type: BLOOD SPECIMENOrdering Facility: [facility] Address: [address] [place] [address] Performed By: #### 2 276-4, 60235-0, PSAS1 ####[facility] LABORATORYCLIA [id number] [place] [address] [place] Folate SerPl-mCncon 08-09-19 24 Folate [Mass/Vol] 19.5 ng/mL Normal >4.7 [facility] Comment on above: Order Comment: Speci men Type: BLOOD SPECIMENOrdering Facility: [facility] Address: [address] [place] [address] Performed By: #### 2 2314-9, 5195-3, 2284-8, 58072-2 ####[facility] LABORATORYCLIA [id number] [place] [address] [place] HAV IgM Ser Qlon 08-09-2023 HAV IgM Ql (S) Non-Reactive Normal Nonreactive [facility] Comment on above: Order Comment: Speci men Type: BLOOD SPECIMENOrdering Facility: [facility] Address: [address] [place] [address] Result Comment: No e vidence of recent infection with Hepatitis A virus. Performed By: #### 2 2314-9, 5-3, 2283-8, 21754-1 ####[facility] LABORATORYCLIA [id number] [address] [place] HBV core IgM Ser Qlon 2023 HBV core IgM Ql (S) Non-Reactive Normal Nonreactive [facility] Comment on above: Order Comment: [facility] Type: BLOOD SPECIMENOrdering Facility: [facility] Address: [address] [place] [address] Result Comment: No e vidence of recent infection with Hepatitis B virus. Should recent infection be suspected, repeat testing may be considered 3-4 weeks after this draw. Performed By: #### 2 2314-9, 5-3, 8, 33033-6 ####[facility] LAB[facility]ORYCLIA [id number] [address] [place] HBV surface Ag Ser Qlon HBV surface Ag Ql (S) Non-Reactive Normal Nonreactive [facility] Comment on above: Order Comment: [facility] Type: BLOOD SPECIMENOrdering Facility: [facility] Address: [address] [place] [address] Performed By: #### 2 2314-9, 5-3, 8, 76322-4 ####[facility] LABORATORYCLIA [id number] [address] [place] HCV Ab Ser Qlon 08-09-2023 HCV Ab Ql (S) Non-Reactive Normal Nonreactive [facility] Comment on above: Order Comment: [facility] Type: BLOOD SPECIMENOrdering Facility: [facility] Address: [address] [place] [address] Result Comment: The result suggests no evidence of active infection with Hepatitis C virus. Should recent infection be suspected, repeat testing may be considered 4-6 weeks after this draw. Performed By: #### 1 6128-1 ####[facility] LABORATORYCLIA [id number] [address] [place] HIV 1+2 Ab IA Qlon 4 HIV 1 and 2 Ab IA.rapid Nom (S/P/Bld) Normal [facility] Comment on above: Order Comment: Speci men Type: BLOOD SPECIMENOrdering Facility: [facility] Address: [address] [place] [address] Result Comment: Test not indicated. Performed By: #### 3 1201-7, 2131-10 ####[facility] LABORATORYCLIA [id number] [place] [address] [place] HIV 1+2 Ab+HIV1 p24 Ag IA Ql Non-Reactive Normal Nonreactive [facility] Comment on above: Order Comment: Speci men Type: BLOOD SPECIMENOrdering Facility: [facility] Address: [address] [place] [address] Result Comment: [place] Rev. Code 3701.243(E): This information has been [...] reference range. Performed By: #### 3 1201-7, 2131-10 ####[facility] LABORATORYCLIA [id number] [address] [place] HIV immunoassay testing algorithm interpretation (S/P/Bld) [Interp] Normal [facility] Comment on above: Order Comment: Speci men Type: BLOOD SPECIMENOrdering Facility: [facility] Address: [address] [place] [address] Result Comment: No e vidence of HIV-1 or HIV-2 infection. Should recent infection be suspected, repeat testing may be considered 2-3 weeks after this draw. Performed By: #### 3 1201-7, 2132-9 ####[facility] LABORATORYCLIA [id number] [address] HbA1c (Bld)on 08-09-2023 Average glucose Estimated from glycated hemoglobin (Bld) [Mass/Vol] 148 mg/dL Normal [facility] Comment on above: Order Comment: Gini nowak Type: BLOOD SPECIMENOrdering Facility: [facility] Address: [address] [place] [address] Result Comment: eAG: (Estimated average glucose) is a calculated value from HgbA1c and is sales and service representative of the average blood glucose level in the last 2-3 month period. Performed By: #### 5 7021-8 ####[facility] LABCLIA [id number] [address]#### [address]-5 ####[facility] LABCLIA [id number] [address] [place] HbA1c (Bld) [Mass fraction] 6.8 % High 4.3-5.6 [facility] Comment on above: Order Comment: Gini nowak Type: BLOOD SPECIMENOrdering Facility: [facility] Address: [address] [place] [address] Result Comment: [place] Diabetes Association guidelines indicate that patients with HgbA1c in the range 5.7-6.4% are at increased risk for development of diabetes, and intervention by lifestyle modification may be beneficial. HgbA1c greater or equal to 6.5% is considered diagnostic of diabetes. Performed By: #### 5 7021-8 ####[facility] LABCLIA [id number] [place] [address] [facility] [place]#### 04480-6 ####[facility] LABCLIA [id number] [address] [place] Iron and Iron binding capaci ty panelon 08-09-2023 Iron [Mass/Vol] 108 ug/dL Normal 41-186 [facility] Comment on above: Order Comment: Speci men Type: BLOOD SPECIMENOrdering Facility: [facility] Address: [address] [place] [address] Performed By: #### 2 276-4, 04190-4, PSAS1 ####[facility] LABORATORYCLIA [id number] [place] [id number] [facility] Iron binding capacity [Mass/Vol] <125 Low 232-386 [facility] Comment on above: Order Comment: Speci men Type: BLOOD SPECIMENOrdering Facility: [facility] Address: [address] [place] [address] Performed By: #### 2 276-4, 57894-2, PSAS1 ####[facility] LABORATORYCLIA [id number] [place] [id number] [facility] Iron saturation [Mass fraction] >86.4 High 15.0-57.0 [facility] Comment on above: Order Comment: Speci men Type: BLOOD SPECIMENOrdering Facility: [facility] Address: [address] [place] [address] Performed By: #### 2 276-4, 20753-1, PSAS1 ####[facility] LABORATORYCLIA [id number] [place] [id number] [facility] LIPASEon 08-09-2023 Lipase [Catalytic activity/Vol] 4 U/L Low 16 - 61 U/L [facility] Lipase SerPl-cCncon 08-09-19 Lipase [Catalytic activity/Vol] 4 U/L Low 16-61 [facility] Comment on above: Order Comment: Speci men Type: BLOOD SPECIMENOrdering Facility: [facility] Address: [address] [place] [address] Performed By: #### 3 016-3, 96343-4, 27593-1, 3040-3 ####[facility] LABCLIA [id number] [place] [address] [place] Lipid 1996 panelon Cholesterol [Mass/Vol] 104 mg/dL NINF - 200 mg/dL [facility] Comment on above: <200 mg/dL, Desirabl e 200-239 mg/dL, Borderline high >239 mg/dL, High Cholesterol in HDL [Mass/Vol] 30 mg/dL Low 39 - PINF mg/dL [facility] Comment on above: 40-59 mg/dL, Accepta ble >59 mg/dL, High: Negative risk factor for coronary heart disease <40 mg/dL, Low: Positive risk factor for coronary heart disease Cholesterol in LDL [Mass/Vol] 32 mg/dL NINF - 100 mg/dL [facility] Comment on above: <100 mg/dL, Optimal 100-129 mg/dL, Near optimal/above optimal 130-159 mg/dL, Borderline high 160-189 mg/dL, High >189 mg/dL, Very high Secondary prevention optimal LDL Cholesterol levels are recommended to be < 70 mg/dL Cholesterol in LDL/Cholesterol in HDL [Mass ratio] 1.07 {ratio} NINF - 2.54 [facility] Comment on above: Reference: 1. National Cholesterol Education Program ATP III Guideline At-A-Glance Quick Desk Reference: National Heart, Lung, and Blood [place]. National Institutes of Health. 2001: NIH Publication No. 01-3305. 2. An International Atherosclerosis Society position paper: global recommendations for the management of dyslipidemia: executive summary, Atherosclerosis. 2014: 232(2):410-413. Cholesterol in VLDL [Mass/Vol] 42 mg/dL High NINF - 30 mg/dL [facility] Cholesterol non HDL [Mass/Vol] 74 mg/dL NINF - 130 mg/dL [facility] Comment on above: <130 mg/dL, Optimal 130-159 mg/dL, Near optimal/above optimal 160-189 mg/dL, Borderline high 190-219 mg/dL, High >219 mg/dL, Very high Secondary prevention optimal non HDL Cholesterol levels are recommended to be <100 mg/dL Cholesterol.total/Livia sterol in HDL [Mass ratio] 3.47 {ratio} NINF - 5.10 [facility] Fasting Time 12 hrs [facility] Triglyceride [Mass/Vol] 211 mg/dL High NINF - 150 mg/dL [facility] Comment on above: <150 mg/dL, Normal 150-199 mg/dL, Borderline high 200-499 mg/dL, High >499 mg/dL, Very high Cholesterol [Mass/Vol] 104 mg/dL Normal <200 [facility] Comment on above: Order Comment: Speci men Type: BLOOD SPECIMENOrdering Facility: [facility] Address: [address] [place] [address] Result Comment: <200 mg/dL, Desirable 200-239 mg/dL, Borderline high >239 mg/dL, High Performed By: #### 3 016-3, 58844-1, 65012-1, 3040-3 ####[facility] [place] LABCLIA [id number] [place] [address] [place] Cholesterol in HDL [Mass/Vol] 30 mg/dL Low >39 [facility] Comment on above: Order Comment: Speci men Type: BLOOD SPECIMENOrdering Facility: [facility] Address: [address] [place] [address] Result Comment: 40-5 9 mg/dL, Acceptable >59 mg/dL, High: Negative risk factor for coronary heart disease <40 mg/dL, Low: Positive risk factor for coronary heart disease Performed By: #### 3 016-3, 58139-6, 22824-1, 3040-3 ####[facility] [place] LABCLIA [id number] [place] [address] [place] Cholesterol in LDL [Mass/Vol] 32 mg/dL Normal <100 [facility] Comment on above: Order Comment: Speci men Type: BLOOD SPECIMENOrdering Facility: [facility] Address: [address] [place] [address] Result Comment: <100 mg/dL, Optimal 100-129 mg/dL, Near optimal/above optimal 130-159 mg/dL, Borderline high 160-189 mg/dL, High >189 mg/dL, Very high Secondary prevention optimal LDL Cholesterol levels are recommended to be < 70 mg/dL Performed By: #### 3 016-3, 90948-9, 64453-8, 3040-3 ####[facility] [place] LABCLIA [id number] [place] [address] [place] Cholesterol in LDL/Cholesterol in HDL [Mass ratio] 1.07 {ratio} Normal <2.54 [facility] Comment on above: Order Comment: Speci men Type: BLOOD SPECIMENOrdering Facility: [facility] Address: [address] [place] [address] Result Comment: Yarelis murillo: 1. National Cholesterol Education Program ATP III Guideline At-A-Glance Quick Desk Reference: National Heart, Lung, and Blood [place]. National Institutes of Health. 2001: NIH Publication No. 01-3305. 2. An International Atherosclerosis Society position paper: global recommendations for the management of dyslipidemia: executive summary, Atherosclerosis. 2014: 232(2):410-413. Performed By: #### 3 016-3, 35305-0, 33850-5, 3040-3 ####[employer] LABCLIA [id number] [place] [address] [place] Cholesterol in VLDL [Mass/Vol] 42 mg/dL High <30 [facility] Comment on above: Order Comment: Speci men Type: BLOOD SPECIMENOrdering Facility: [facility] Address: [address] [place] [address] Performed By: #### 3 016-3, 00365-7, 45977-4, 3040-3 ####[facility] [employer] LABCLIA [id number] [place] [address] [place] Cholesterol non HDL [Mass/Vol] 74 mg/dL Normal <130 [facility] Comment on above: Order Comment: Speci men Type: BLOOD SPECIMENOrdering Facility: [facility] Address: [address] [place] [address] Result Comment: <130 mg/dL, Optimal 130-159 mg/dL, Near optimal/above optimal 160-189 mg/dL, Borderline high 190-219 mg/dL, High >219 mg/dL, Very high Secondary prevention optimal non HDL Cholesterol levels are recommended to be <100 mg/dL Performed By: #### 3 016-3, 01297-1, 69786-3, 3040-3 ####[facility] [place] LABCLIA [id number] [place] [address] [facility] [place] Cholesterol.total/Livia sterol in HDL [Mass ratio] 3.47 {ratio} Normal <5.10 [facility] Comment on above: Order Comment: Speci men Type: BLOOD SPECIMENOrdering Facility: [facility] Address: [address] [place] [address] Performed By: #### 3 016-3, 97443-5, 31531-5, 3040-3 ####[facility] [place] LABCLIA [id number] [place] [address] [facility] FASTING TIME 12 hrs Normal [facility] Comment on above: Order Comment: Speci men Type: BLOOD SPECIMENOrdering Facility: [facility] Address: [address] [place] [address] Performed By: #### 3 016-3, 38675-6, 64671-3, 3040-3 ####[facility] [place] LABCLIA [id number] [place] [address] [place] Triglyceride [Mass/Vol] 211 mg/dL High <150 [facility] Comment on above: Order Comment: Speci men Type: BLOOD SPECIMENOrdering Facility: [facility] Address: [address] [place] [address] Result Comment: <150 mg/dL, Normal 150-199 mg/dL, Borderline high 200-499 mg/dL, High >499 mg/dL, Very high Performed By: #### 3 016-3, 28356-5, 94829-9, 3040-3 ####[facility] [place] LABCLIA [id number] [place] [address] [facility] No Panel Informationon 08-08 Interpretation and review of laboratory results Abnormal [facility] PSA/PROSTATE SPECIFIC ANTIGE N SCREENINGon 08-09-2023 Prostate specific Ag [Mass/Vol] 0.78 ng/mL Normal <2.60 [facility] Comment on above: Order Comment: Speci men Type: BLOOD SPECIMENOrdering Facility: [facility] Address: [address] [place] [address] Result Comment: Tota l PSA test methodology used is the Electrochemiluminescence Immunoassay by [employer]. Total PSA values by differing methodologies cannot be interchanged. Performed By: #### 2 276-4, 68586-9, PSAS1 ####[facility] LABORATORYCLIA [id number] [place] [id number] [place] THYROID STIMULATING HORMONEo n 08-09-2023 TSH Qn 1.170 m[IU]/L [facility] TSH Qnon 08-09-2023 Interpretation and review of laboratory results Normal [facility] TSH SerPl-aCncon 08-09-2023 TSH Qn 1.170 m[IU]/L Normal 0.270-4.200 [facility] Comment on above: Order Comment: Speci men Type: BLOOD SPECIMENOrdering Facility: [facility] Address: [address] [place] [address] Performed By: #### 3 016-3, 48849-1, 56179-6, 3040-3 ####[facility] LABCLIA [id number] [place] [address] [place] UA DIP, URINE (POC)on 2023 BILIRUBIN UA (POCT) Negative Negative [facility] CLARITY UA (POCT) Cloudy [facility] COLOR UA (POCT) Other [facility] GLUCOSE UA (POCT) 500 mg/dL Abnormal Negative [facility] Hemoglobin Ql (U) Trace-intact Abnormal Negative [facility] Interpretation and review of laboratory results Abnormal [facility] KETONE UA (POCT) Negative Negative mg/dL [facility] LEUKOCYTES UA (POCT) Small Abnormal Negative [facility] NITRITE UA (POCT) Negative Negative [facility] PH UA (POCT) >=9.0 Abnormal 4.5 - 8.0 [facility] Protein Ql (U) 30 mg/dL Abnormal Negative [facility] SPECIFIC GRAVITY UA (POCT) 1.015 1.005 - 1.030 [facility] UROBILINOGEN UA (POCT) 0.2 Orin l E.U./dL [facility] Location:[facility], [address] [place] [address], [id number] [facility] POINT OF CARE [facility] Vit B12 SerPl-mCncon 024 Cobalamin (Vitamin B12) [Mass/Vol] 1523 pg/mL High 232-1245 [facility] Comment on above: Order Comment: Speci men Type: BLOOD SPECIMENOrdering Facility: [facility] Address: [address] [id number] Performed By: #### 3 1201-7, 2132-9 ####[facility] LABORATORYCLIA [id number] [place] [address] [place] Absolute lymphocyte countOrd ered By: Refugio Rojas on 05-20-2023 Lymphocytes Auto (Unsp spec) [#/Vol] 1.20 10*3/uL 0.83-4.51 [facility] Automated lymphocyte count a s percentage of total leukocytesOrdered By: Refugio Rojas on 05-20-2023 Lymphocytes/100 WBC Auto (Unsp spec) 9.8 % 19-41 [facility] Basophil percentageOrdered B y: Refugio Rojas on 05-20-2023 Basophil percentage 8.5 g/dL 13.0-16.5 [facility] Basophils (Bld) [#/Vol] 12.2 10*3/uL 4.4-11.0 [facility] Basophils (Bld) [#/Vol] 10.1 10*3/uL 2.0-7.7 [facility] Basophils/100 WBC (Bld) 82.4 % 47-[address] [facility] Basophils/100 WBC (Bld) 5.6 % 0-[address] [facility] Basophils/100 WBC (Bld) 0.7 % 0-[address] [facility] Basophil percentageOrdered B y: Estefany Donnelly on 05-20-2023 Basophil percentage 145 mg/dL 74-106 [facility] Basophil percentage 3.1 mg/dL 2.5-4.9 [facility] Basophil percentage 139 mmol/L 136-145 [facility] Basophil percentage 4.7 mmol/L 3.5-5.1 [facility] Basophil percentage 109 mmol/L 98-107 [facility] Blood manual differential co mment interpretation (narrative result)Ordered By: Refugio Rojas on 05-20-2023 Manual differential comment Jose Carlos (Bld) [Interp] SCANNED [facility] Determination of erythrocyte mean corpuscular volume (MCV)Ordered By: Refugio Rojas on 05-20-2023 MCV (RBC) [Entitic vol] 101.9 fL 80-[address] [facility] Erythrocyte distribution wid th ratioOrdered By: Refugio Rojas on 05-20-2023 Erythrocyte distribution width (RBC) [Ratio] 18.5 % 11.6-14.6 [facility] Erythrocyte distribution wid th standard deviationOrdered By: Refugio Rojas on 05-20-2023 Erythrocyte distribution width (RBC) [Entitic vol] 68.9 fL 35.1-43.9 [facility] Hematocrit Auto (Bld) [Volum e fraction]Ordered By: Refugio Rojas on 05-20-2023 Hematocrit (Bld) [Volume fraction] 26.4 % 40-54 [facility] Immature granulocytes/100 WB C Auto (Bld)Ordered By: Refugio Rojas on 05-20-2023 Immature granulocytes/100 WBC (Bld) 0.800 % 0.0-0.9 [facility] No Panel InformationOrdered By: Refugio Rojas on 05-20-2023 32.8 pg 27.0-32.0 [facility] 32.2 g/dL 32-36 [facility] 264 K/mm3 150-450 [facility] 11.9 fl 6.2-12.0 [facility] 0 % 0-5 [facility] 1+ [facility] No Panel InformationOrdered By: Estefany Donnelly on 05-20-2023 35 mL/min >60 [facility] 42 mL/min >60 [facility] 40.22 ml/min [facility] 9.1 RATIO 10-20 [facility] 28.0 mmol/L 21.0-32.0 [facility] RBC Auto (Bld) [#/Vol]Ordere d By: Refugio Rojas on 05-20-2023 RBC (Bld) [#/Vol] 2.59 10*6/uL 4.6-6.2 [facility] Serum or plasma calcium luciana urement (mass/volume)Ordered By: Estefany Donnelly on 05-20-2023 Calcium [Mass/Vol] 7.8 mg/dL 8.5-10.1 [facility] Serum or plasma creatinine m easurement (mass/volume)Ordered By: Estefany Donnelly on 05-20-2023 Creatinine [Mass/Vol] 2.08 mg/dL 0.70-1.30 [facility] Serum or plasma urea nitroge n measurement (mass/volume)Ordered By: Estefany Donnelly on 05-20-2023 Urea nitrogen [Mass/Vol] 19 mg/dL 7-18 [facility] Thin prep Papanicolaou smear with manual screeningOrdered By: Refugio Rojas on 05-20-2023 Thin prep Papanicolaou smear with manual screening 265 mg/dL 74-106 [facility] Thin prep Papanicolaou smear with manual screeningOrdered By: Estefany Donnelly on 05-20-2023 Thin prep Papanicolaou smear with manual screening 1.4 g/dL 3.2-5.0 [facility] Thin prep Papanicolaou smear with manual screeningOrdered By: Refugio Rojas on 05-19-2023 Thin prep Papanicolaou smear with manual screening 2 5-15 [facility] Iron measurement (mass/mass) Ordered By: Conrado Morel on 05-17-2023 Iron (Unsp spec) [Mass/Mass] 28 ug/dL 65-175 [facility] No Panel InformationOrdered By: Conrado Morel on 05-17-2023 > 2000 pg/mL 211-911 [facility] 45 ug/dL 250-450 [facility] 419 ng/mL 26-388 [facility] Serum or plasma iron saturat ion measurement (mass fraction)Ordered By: Conrado Morel on 05-17-2023 Iron saturation [Mass fraction] 62.2 % 15.0-55.0 [facility] Basophil percentageOrdered B y: Conrado Morel on 05-16-2023 Basophil percentage 4.6 g/dL 6.4-8.2 [facility] Basophil percentage 0.40 mg/dL 0.20-1.00 [facility] Lower GI hemoglobin IA Ql (S tl)Ordered By: Conrado Morel on 05-16-2023 Stool gastrointestinal hemoglobin detection by immunologic method Positive [facility] No Panel InformationOrdered By: Conrado Morel on 05-16-2023 3.6 g/dL 2.2-4.2 [facility] 0.3 RATIO 0.9-2.4 [facility] 152 U/L 45-117 [facility] 25 U/L 16-61 [facility] 2.2 mg/dL 1.6-2.6 [facility] Thin prep Papanicolaou smear with manual screeningOrdered By: Conrado Morel on 05-16-2023 Thin prep Papanicolaou smear with manual screening 41 U/L 15-37 [facility] Blood platelet adequacy dete ction by light microscopyOrdered By: Conrado Morel on 05-14-2023 Platelets LM Ql (Bld) MKD DEC ADEQ [facility] No Panel InformationOrdered By: Conrado Morel on 05-14-2023 RARE [facility] Review by pathologistOrdered By: Conrado Morel on 05-14-2023 Pathologist review Jose Carlos (Unsp spec) [Interp] Reviewed [facility] Assessment of wrist artery p atency prior to arterial punctureOrdered By: Conrado Morel on 05-12-2023 Arterial patency Wrist artery --pre arterial puncture Positive [facility] Base excessOrdered By: Conrado Morel on 05-12-2023 Base excess Calc (BldV) [Moles/Vol] 6 mmol/L -2-2 [facility] Basophil percentageOrdered B y: Iman Aguayo on 05-12-2023 Basophil percentage 27.0 umol/L 11-32 [facility] Basophil percentageOrdered B y: Conrado Morel on 05-12-2023 Basophil percentage 32 mmol/L [facility] Basophils/100 WBC (Bld) 98 % 95-[address] [facility] Hemoglobin in reticulocytes (mass per reticulocyte)Ordered By: Conrado Morel on 05-12-2023 Hemoglobin (Reticulocytes) [Entitic mass] 31.7 pg 30-35 [facility] Immature platelet fractionOr dered By: Conrado Morel on 05-12-2023 Platelets reticulated/100 platelets Auto (Bld) 10.0 % 1.0-7.9 [facility] Measurement, pHOrdered By: Viola Morel on 05-12-2023 pH (Unsp spec) 7.42 [pH] 7.35-7.45 [facility] No Panel InformationOrdered By: Conrado Morel on 05-12-2023 8.50 % 3.00-15.90 [facility] ART [facility] R Radial [facility] NIV [facility] BiPAP [facility] 30.0 [facility] 16/8 14 30% [facility] 47.3 mmHg 35-45 [facility] 112 mmHG 75-100 [facility] 30.7 mmol/L 22-26 [facility] Reticulocytes Auto (Bld) [#/ Vol]Ordered By: Conrado Morel on 05-12-2023 Reticulocytes/100 RBC (Bld) 1.44 % 0.5-1.5 [facility] Bacteria identified Cx Nom ( U)Ordered By: Conrado Morel on 05-10-2023 Culture, urine Escherichia coli [facility] Basophil percentageOrdered B y: Conrado Morel on 05-10-2023 Basophil percentage 3.0 mmol/L 0.4-2.0 [facility] No Panel InformationOrdered By: Barry Sheehan on 05-10-2023 Negative Negative [facility] No Panel InformationOrdered By: Conrado Morel on 05-10-2023 No growth in 5 days. [facility] Serum or plasma thyroid stim ulating hormone (TSH) measurement (units/volume)Ordered By: Conrado Fraser on 05-10-2023 TSH Qn 0.89 uIU/mL 0.358-3.74 [facility] Absolute lymphocyte countOrd ered By: Trish Arevalo on 05-09-2023 Lymphocytes Auto (Unsp spec) [#/Vol] 0.35 10*3/uL 0.83-4.51 [facility] Automated lymphocyte count a s percentage of total leukocytesOrdered By: Trish Arevalo on 05-09-2023 Lymphocytes/100 WBC Auto (Unsp spec) 2.7 % 19-41 [facility] Basophil percentageOrdered B y: Trish Arevalo on 05-09-2023 Basophil percentage 50-100 SEEN /hpf 0-5 [facility] Basophils/100 WBC (Bld) 0.5 % 0-[address] [facility] Bilirubin [Mass/Vol] 1.00 mg/dL 0.20-1.00 [facility] Comment on above: For patients on eltr ombopag therapy, use of Dimension [place] TBIL is not recommended. Chloride [Moles/Vol] 92 mmol/L 98-107 [facility] Eosinophils/100 WBC (Bld) 0.0 % 0-5 [facility] Glucose [Mass/Vol] 209 mg/dL 74-106 [facility] Comment on above: Glucose result great er than or equal to 200 mg/dLsuggests DIABETES MELLITUS per A.D.A. criteria. Hemoglobin (Bld) [Mass/Vol] 11.2 g/dL 13.0-16.5 [facility] Monocytes/100 WBC (Bld) 3.2 % 0-[address] [facility] Neutrophils (Bld) [#/Vol] 12.0 10*3/uL 2.0-7.7 [facility] Neutrophils/100 WBC (Bld) 92.8 % 47-70 [facility] Potassium [Moles/Vol] 4.0 mmol/L 3.5-5.1 [facility] Comment on above: Slight Hemolysis, Re sult may be falsely increased. Protein [Mass/Vol] 5.4 g/dL 6.4-8.2 [facility] Sodium [Moles/Vol] 137 mmol/L 136-145 [facility] WBC (Bld) [#/Vol] 13.0 10*3/uL 4.4-11.0 [facility] Bilirubin Test strip Ql (U)O rdered By: Trish Arevalo on 05-09-2023 Bilirubin Ql (U) Negative Negative [facility] Blood platelet adequacy dete ction by light microscopyOrdered By: Trish Arevalo on 05-09-2023 Platelets LM Ql (Bld) ADEQUATE ADEQ [facility] Determination of erythrocyte mean corpuscular volume (MCV)Ordered By: Trish Arevalo on 05-09-2023 MCV (RBC) [Entitic vol] 104.0 fL 80-[address] [facility] Direct bilirubinOrdered By: Trish Arevalo on 05-09-2023 Bilirubin.direct [Mass/Vol] 0.48 mg/dL 0.00-0.30 [facility] Erythrocyte distribution wid th ratioOrdered By: Trish Arevalo on 05-09-2023 Erythrocyte distribution width (RBC) [Ratio] 15.7 % 11.6-14.6 [facility] Erythrocyte distribution wid th standard deviationOrdered By: Trish Arevalo on 05-09-2023 Erythrocyte distribution width (RBC) [Entitic vol] 59.7 fL 35.1-43.9 [facility] Hematocrit Auto (Bld) [Volum e fraction]Ordered By: Trish Arevalo on 05-09-2023 Hematocrit (Bld) [Volume fraction] 33.8 % 40-54 [facility] Immature granulocytes/100 WB C Auto (Bld)Ordered By: Trish Arevalo on 05-09-2023 Immature granulocytes/100 WBC (Bld) 0.800 % 0.0-0.9 [facility] Comment on above: IG% - Immature Granu locytes (promyelocytes, myelocytes and metamyelocytes) > 1% indicates that a LEFT SHIFT is Present. Ketones Test strip Ql (U)Ord ered By: Trish Arevalo on 05-09-2023 Ketones Ql (U) Negative Negative [facility] Laboratory - Chemistry and C hemistry - challengeOrdered By: Trish Arevalo on 05-09-2023 ALP [Catalytic activity/Vol] 212 U/L 45-117 [facility] ALT [Catalytic activity/Vol] 56 U/L 16-61 [facility] CO2 [Moles/Vol] 36.0 mmol/L 21.0-32.0 [facility] Globulin (S) [Mass/Vol] 3.9 g/dL 2.2-4.[address] [facility] Lipase [Catalytic activity/Vol] U/L 13-75 [facility] Comment on above: Please note:LIPASE r evised reference range effective 22. New Lipase methodology. Expected to produce lower values than the previous assay method. NEW Reference Range: 13 - 75 U/L Urea nitrogen/Creatinine [Mass ratio] 6.0 mg/mg 10-20 [facility] Laboratory - CoagulationOrde red By: Trish Arevalo on 05-09-2023 INR Coag (Bld) [Relative time] 2.0 {INR} [facility] PT Coag (PPP) [Time] 22.6 s 11.7-14.9 [facility] Laboratory - Hematology and Cell countsOrdered By: Trish Arevalo on 05-09-2023 MCH (RBC) [Entitic mass] 34.5 pg 27.0-32.0 [facility] MCHC (RBC) [Mass/Vol] 33.1 g/dL 32-36 [facility] Nucleated RBC/100 WBC (Bld) [Ratio] 0 % 0-5 [facility] Platelet mean volume (Bld) [Entitic vol] 12.3 fL 6.2-12.0 [facility] Platelets (Bld) [#/Vol] 133 10*3/uL 150-450 [facility] Macrocytes detectionOrdered By: Trish Arevalo on 05-09-2023 Macrocytes Ql (Bld) 1+ [facility] Mucus LM Ql (Urine sed)Order ed By: Trish Arevalo on 05-09-2023 Mucus Ql (Urine sed) 0 SEEN /hpf [facility] Nitrite Test strip Ql (U)Ord ered By: Trish Arevalo on 05-09-2023 Nitrite Ql (U) Negative Negative [facility] No Panel InformationOrdered By: Trish Arevalo on 05-09-2023 Urine RBC 0-5 SEEN /hpf 0-5 [facility] 0-5 SEEN /hpf 0-5 [facility] 22.6 SECONDS 11.7-14.9 [facility] 2.0 [facility] Estimated Creatinine Clearance Calc 55.78 ml/min [facility] Estimated GFR (MDRD) Amer 61 mL/min >60 [facility] Comment on above: GFR Calc Estimated GFR (MDRD) Non-Af Amer 51 mL/min >60 [facility] Comment on above: Non- GFR Calc < 10 U/L 13-75 [facility] No Panel InformationOrdered By: Conrado Fraser on 05-09-2023 [facility] Negative < 50 ng/mL [facility] Positive < 300 ng/mL [facility] Protein Test strip Ql (U)Ord ered By: Trish Arevalo on 05-09-2023 Protein Ql (U) 100 mg/dl Negative [facility] RBC Auto (Bld) [#/Vol]Ordere d By: Trish Arevalo on 05-09-2023 RBC (Bld) [#/Vol] 3.25 10*6/uL 4.6-6.2 [facility] Serum or plasma calcium luciana urement (mass/volume)Ordered By: Trish Arevalo on 05-09-2023 Calcium [Mass/Vol] 8.0 mg/dL 8.5-10.1 [facility] Serum or plasma creatinine m easurement (mass/volume)Ordered By: Trish Arevalo on 05-09-2023 Creatinine [Mass/Vol] 1.50 mg/dL 0.70-1.30 [facility] Comment on above: The validity of the calculated GFR & GFRAA in patients over 70 years has not been determined. Clinical correlation is essential. Serum or plasma transthyreti n measurement (mass/volume)Ordered By: Conrado Fraser on 05-09-2023 Prealbumin [Mass/Vol] 8.0 mg/dL 20.0-40.0 [facility] Serum or plasma urea nitroge n measurement (mass/volume)Ordered By: Trish Arevalo on 05-09-2023 Urea nitrogen [Mass/Vol] 9 mg/dL 7-18 [facility] Squamous epithelial cells de tection in urine sediment by light microscopyOrdered By: Trish Arevalo on 05-09-2023 Epithelial cells.squamous LM Ql (Urine sed) 0 SEEN /hpf 0-5 [facility] Thin prep Papanicolaou smear with manual screeningOrdered By: Trish Arevalo on 05-09-2023 Thin prep Papanicolaou smear with manual screening 1.5 g/dL 3.2-5.0 [facility] Thin prep Papanicolaou smear with manual screening 220 U/L 15-37 [facility] Comment on above: Slight Hemolysis, Re sult may be falsely increased. Thin prep Papanicolaou smear with manual screening 9 5-15 [facility] Urine blood detectionOrdered By: Trish Arevalo on 05-09-2023 RBC Ql (U) 250 /ul Negative [facility] Urine clarityOrdered By: Lala Arevalo on 05-09-2023 Clarity (U) Sl. Cloudy Clear [facility] Urine color determinationOrd ered By: Trish Arevalo on 05-09-2023 Color (U) Yellow Yellow [facility] Urine glucose detectionOrder ed By: Trish Arevalo on 05-09-2023 Glucose Ql (U) Normal mg/dl Normal [facility] Urine leukocyte esterase det ection by dipstickOrdered By: Trish Arevalo on 05-09-2023 Leukocyte esterase Test strip Ql (U) 500 /ul Negative [facility] Urine pHOrdered By: Trish hay on 05-09-2023 pH (U) 8.0 [pH] 5.0 - 8.0 [facility] Urine phencyclidine (PCP) de tectionOrdered By: Conrado Fraser on 05-09-2023 Phencyclidine Ql (U) Negative < 25 ng/mL [facility] Urine sediment bacteria coun t by microscopy (number/high power field)Ordered By: Trish Arevalo on 05-09-2023 Bacteria LM.HPF (Urine sed) [#/Area] 1 /[HPF] None Seen [facility] Urine specific gravity measu rementOrdered By: Trish Arevalo on 05-09-2023 Specific gravity (U) [Rel density] 1.015 1.002-1.030 [facility] Urine urobilinogen measureme ntOrdered By: Trish Arevalo on 05-09-2023 Urobilinogen Ql (U) Normal mg/dl Normal [facility] Thin prep Papanicolaou smear with manual screeningOrdered By: Ashley Alvarado on 04-27-2023 Thin prep Papanicolaou smear with manual screening 104 mg/dL 74-106 [facility] Comment on above: MANAGEMENT OF PATIEN T CARE PER NURSING PROTOCOL Basophil percentageOrdered B y: Ashley Alvarado on 04-24-2023 Basophil percentage 73 mg/dL <200 [facility] Basophil percentage 122 mg/dL <199 [facility] Cholesterol [Mass/Vol] 73 mg/dL <200 [facility] Comment on above: <200 mg/dL Desirable 200-240 mg/dL Borderline >240 mg/dL High Risk Triglyceride [Mass/Vol] 122 mg/dL <[address] [facility] Comment on above: The drugs N-Acetylcy steine and Metamizole may falsely depress this assay.Serum Triglycerides Reference Interval Normal <150 mg/dL Borderline high 150 - 199 mg/dL High 200 - 499 mg/dL Very High > or = 500 mg/dL Laboratory - Chemistry and C hemistry - challengeOrdered By: Ashley Alvarado on 04-24-2023 Cholesterol in HDL [Mass/Vol] 23 mg/dL >40 [facility] Comment on above: The drugs N-Acetylcy steine and Metamizole may falsely depress this assay. Reference Range HDL <40 mg/dL Low HDL Cholesterol HDL >or= 60 mg/dL High HDL Cholesterol Cholesterol in LDL [Mass/Vol] 26 mg/dL 0-130 [facility] No Panel InformationOrdered By: Ashley Alvarado on 04-24-2023 VLDL Cholesterol 24 mg/dL 5-40 [facility] 23 mg/dL >40 [facility] 26 mg/dL 0-130 [facility] 24 mg/dL 5-40 [facility] Basophil percentageOrdered B y: Conrado Fraser on 04-22-2023 Basophil percentage 0 SEEN /hpf 0-5 [facility] Bilirubin Test strip Ql (U)O rdered By: Conrado Fraser on 04-22-2023 Bilirubin Ql (U) Negative Negative [facility] Ketones Test strip Ql (U)Ord ered By: Conrado Fraser on 04-22-2023 Ketones Ql (U) Negative Negative [facility] Mucus LM Ql (Urine sed)Order ed By: Conrado Fraser on 04-22-2023 Mucus Ql (Urine sed) 0 SEEN /hpf [facility] Nitrite Test strip Ql (U)Ord ered By: Conrado Fraser on 04-22-2023 Nitrite Ql (U) Negative Negative [facility] No Panel InformationOrdered By: Conrado Fraser on 04-22-2023 Urine RBC 0-5 SEEN /hpf 0-5 [facility] 0-5 SEEN /hpf 0-5 [facility] Protein Test strip Ql (U)Ord ered By: Conrado Fraser on 04-22-2023 Protein Ql (U) 15 mg/dl Negative [facility] Squamous epithelial cells de tection in urine sediment by light microscopyOrdered By: Conrado Fraser on 04-22-2023 Epithelial cells.squamous LM Ql (Urine sed) 5-10 SEEN /hpf 0-5 [facility] Urine blood detectionOrdered By: Conrado Fraser on 04-22-2023 RBC Ql (U) Negative Negative [facility] Urine clarityOrdered By: Beck Fraser on 04-22-2023 Clarity (U) Clear Clear [facility] Urine color determinationOrd ered By: Conrado Fraser on 04-22-2023 Color (U) Yellow Yellow [facility] Urine glucose detectionOrder ed By: Conrado Fraser on 04-22-2023 Glucose Ql (U) 100 mg/dl Normal [facility] Urine leukocyte esterase det ection by dipstickOrdered By: Conrado Fraser on 04-22-2023 Leukocyte esterase Test strip Ql (U) 25 /ul Negative [facility] Urine pHOrdered By: Conrado arredondo on 04-22-2023 pH (U) 8.0 [pH] 5.0 - 8.0 [facility] Urine sediment bacteria coun t by microscopy (number/high power field)Ordered By: Conrado Fraser on 04-22-2023 Bacteria LM.HPF (Urine sed) [#/Area] 0 /[HPF] None Seen [facility] Urine specific gravity measu rementOrdered By: Conrado Fraser on 04-22-2023 Specific gravity (U) [Rel density] 1.015 1.002-1.030 [facility] Urine urobilinogen measureme ntOrdered By: Conrado Fraser on 04-22-2023 Urobilinogen Ql (U) Normal mg/dl Normal [facility] Basophil percentageOrdered B y: Lucas Frausto on 04-21-2023 Basophil percentage 106 mg/dL 74-106 [facility] Basophil percentage 4.1 g/dL 6.4-8.2 [facility] Basophil percentage 1.00 mg/dL 0.20-1.00 [facility] Basophil percentage 143 mmol/L 136-145 [facility] Basophil percentage 3.6 mmol/L 3.5-5.1 [facility] Basophil percentage 106 mmol/L 98-107 [facility] Bilirubin [Mass/Vol] 1.00 mg/dL 0.20-1.00 [facility] Comment on above: For patients on eltr ombopag therapy, use of Dimension [place] TBIL is not recommended. Chloride [Moles/Vol] 106 mmol/L 98-107 [facility] Glucose [Mass/Vol] 106 mg/dL 74-106 [facility] Comment on above: Fasting Glucose resu lt from 100 to 125 mg/dL suggests IMPAIRED HOMEOSTASIS per A.D.A. criteria. Potassium [Moles/Vol] 3.6 mmol/L 3.5-5.1 [facility] Protein [Mass/Vol] 4.1 g/dL 6.4-8.2 [facility] Sodium [Moles/Vol] 143 mmol/L 136-145 [facility] Laboratory - Chemistry and C hemistry - challengeOrdered By: Lucas Frausto on 04-21-2023 Albumin/Globulin [Mass ratio] 0.6 {ratio} 0.9-2.4 [facility] ALP [Catalytic activity/Vol] 158 U/L 45-117 [facility] ALT [Catalytic activity/Vol] 70 U/L 16-61 [facility] CO2 [Moles/Vol] 32.0 mmol/L 21.0-32.0 [facility] Globulin (S) [Mass/Vol] 2.5 g/dL 2.2-4.2 [facility] Urea nitrogen/Creatinine [Mass ratio] 5.2 mg/mg 10-20 [facility] No Panel InformationOrdered By: Lucas Frausto on 04-21-2023 Estimated Creatinine Clearance Calc 61.74 ml/min [facility] Estimated GFR (MDRD) Amer 83 mL/min >60 [facility] Comment on above: GFR Calc Estimated GFR (MDRD) Non-Af Amer 69 mL/min >60 [facility] Comment on above: Non- GFR Calc Hepatitis A IgM Antibody Negative Negative [facility] Hepatitis B Core IgM Antibody Negative Negative [facility] Hepatitis C Antibody (EIA) Non-Reactive Non Reactive [facility] Hepatitis C Antibody Comment Comment . [facility] Comment on above: Not infected with HC V unless early or acute infection issuspected (which may be delayed in an immunocompromisedindividual), or other evidence exists to indicate HCVinfection.Performed at: [facility] [id number] Director: Agustin Arredondo PhD, Phone: [phone] 69 mL/min >60 [facility] 83 mL/min >60 [facility] 61.74 ml/min [facility] 5.2 RATIO 10-20 [facility] 2.5 g/dL 2.2-4.2 [facility] [facility] 0.6 RATIO 0.9-2.4 [facility] 158 U/L 45-117 [facility] 70 U/L 16-61 [facility] 32.0 mmol/L 21.0-32.0 [facility] Negative Negative [facility] Non-Reactive Non Reactive [facility] Comment . [facility] Serum or plasma calcium luciana urement (mass/volume)Ordered By: Lucas Frausto on 04-21-2023 Calcium [Mass/Vol] 7.3 mg/dL 8.5-10.1 [facility] Serum or plasma creatinine m easurement (mass/volume)Ordered By: Lucas Frausto on 04-21-2023 Creatinine [Mass/Vol] 1.15 mg/dL 0.70-1.30 [facility] Comment on above: The validity of the calculated GFR & GFRAA in patients over 70 years has not been determined. Clinical correlation is essential. Serum or plasma hepatitis B virus surface antigen detection by immunoassayOrdered By: Lucas Frausto on 04-21-2023 HBV surface Ag IA Ql Negative Negative [facility] Serum or plasma urea nitroge n measurement (mass/volume)Ordered By: Lucas Frausto on 04-21-2023 Urea nitrogen [Mass/Vol] 6 mg/dL 7-18 [facility] Thin prep Papanicolaou smear with manual screeningOrdered By: Lucas Frausto on 04-21-2023 Thin prep Papanicolaou smear with manual screening 1.6 g/dL 3.2-5.0 [facility] Thin prep Papanicolaou smear with manual screening 221 U/L 15-37 [facility] Thin prep Papanicolaou smear with manual screening 5 5-15 [facility] Absolute lymphocyte countOrd ered By: Chris Davila on 04-20-2023 Lymphocytes Auto (Unsp spec) [#/Vol] 0.90 10*3/uL 0.83-4.51 [facility] Basophil percentageOrdered B y: Chris Davila on 04-20-2023 Basophil percentage 11.8 g/dL 13.0-16.5 [facility] Basophils (Bld) [#/Vol] 8.0 10*3/uL 4.4-11.0 [facility] Basophils (Bld) [#/Vol] 6.1 10*3/uL 2.0-7.7 [facility] Basophils/100 WBC (Bld) 0.9 % 0-[address] [facility] Basophils/100 WBC (Bld) 76.5 % 47-[address] [facility] Basophils/100 WBC (Bld) 11.2 % 19-[address] [facility] Basophils/100 WBC (Bld) 10.2 % 0-[address] [facility] Basophils/100 WBC (Bld) 0.5 % 0-[address] [facility] Eosinophils/100 WBC (Bld) 0.5 % 0-5 [facility] Hemoglobin (Bld) [Mass/Vol] 11.8 g/dL 13.0-16.5 [facility] Lymphocytes/100 WBC (Bld) 11.2 % 19-41 [facility] Monocytes/100 WBC (Bld) 10.2 % 0-[address] [facility] Neutrophils (Bld) [#/Vol] 6.1 10*3/uL 2.0-7.7 [facility] Neutrophils/100 WBC (Bld) 76.5 % 47-70 [facility] WBC (Bld) [#/Vol] 8.0 10*3/uL 4.4-11.0 [facility] Determination of erythrocyte mean corpuscular volume (MCV)Ordered By: Chris Davila on 04-20-2023 MCV (RBC) [Entitic vol] 102.0 fL 80-[address] [facility] Direct bilirubinOrdered By: Chris Davila on 04-20-2023 Bilirubin.direct [Mass/Vol] 0.42 mg/dL 0.00-0.30 [facility] Erythrocyte distribution wid th ratioOrdered By: Chris Davila on 04-20-2023 Erythrocyte distribution width (RBC) [Ratio] 15.4 % 11.6-14.6 [facility] Hematocrit Auto (Bld) [Volum e fraction]Ordered By: Chris Davila on 04-20-2023 Hematocrit (Bld) [Volume fraction] 35.9 % 40-54 [facility] Laboratory - Chemistry and C hemistry - challengeOrdered By: Chris Davila on 04-20-2023 Lipase [Catalytic activity/Vol] U/L 13-75 [facility] Comment on above: Please note:LIPASE r evised reference range effective 22. New Lipase methodology. Expected to produce lower values than the previous assay method. NEW Reference Range: 13 - 75 U/L Laboratory - Drug toxicology Ordered By: Chris Davila on 04-20-2023 Amphetamines Ql (U) Negative <1000 ng/mL [facility] Benzodiazepines Ql (U) Negative < 200 ng/mL [facility] Cannabinoids Screen Ql (U) Negative < 50 ng/mL [facility] Cocaine Ql (U) Negative < 300 ng/mL [facility] Opiates Ql (U) Negative < 300 ng/mL [facility] Laboratory - Hematology and Cell countsOrdered By: Chris Davila on 04-20-2023 Erythrocyte distribution width (RBC) [Entitic vol] 57.8 fL 35.1-43.9 [facility] Immature granulocytes/100 WBC (Bld) 0.700 % 0.0-0.9 [facility] Comment on above: IG% - Immature Granu locytes (promyelocytes, myelocytes and metamyelocytes) > 1% indicates that a LEFT SHIFT is Present. MCH (RBC) [Entitic mass] 33.5 pg 27.0-32.0 [facility] MCHC (RBC) [Mass/Vol] 32.9 g/dL 32-36 [facility] Platelet mean volume (Bld) [Entitic vol] 10.8 fL 6.2-12.0 [facility] No Panel InformationOrdered By: Chris Davila on 04-20-2023 Ethyl Alcohol Level 56.0 mg/dL [facility] Comment on above: The serum:whole bloo d ethanol ratio is approximately 1.14and varies slightly with hematocrit. Medical Alcohol reference interval and critical value innon-tolerant individuals; 50 - 100 Impairment 100 Intoxication 100 - 250 Severe Poisoning 250 - 400 Deep/possible fatal comaRESULT(S) PREVIOUSLY REPORTED ON MANUAL REQUISITION DURINGDOWNTIME. 33.5 pg 27.0-32.0 [facility] 32.9 g/dL 32-36 [facility] 57.8 fl 35.1-43.9 [facility] 10.8 fl 6.2-12.0 [facility] 0.700 % 0.0-0.9 [facility] < 10 U/L 13-75 [facility] 56.0 mg/dL [facility] MDMA (Ecstasy) Screen Negative < 500 ng/mL [facility] Urine Barbiturates Screen Negative < 200 ng/mL [facility] Urine Drug Screen Comment [facility] Comment on above: CONFIRMATORY TESTING FOR [...] Methadone Screen Negative < 300 ng/mL [facility] Negative < 50 ng/mL [facility] Platelets bldOrdered By: Fox Davila on 04-20-2023 Platelets (Bld) [#/Vol] 132 10*3/uL 150-450 [facility] RBC Auto (Bld) [#/Vol]Ordere d By: Chris Davila on 04-20-2023 RBC (Bld) [#/Vol] 3.52 10*6/uL 4.6-6.2 [facility] Urine phencyclidine (PCP) de tectionOrdered By: Chris Davila on 04-20-2023 Phencyclidine Ql (U) Negative < 25 ng/mL [facility] GGTon 04-02-2023 Gamma GT 280 U/L High 15-85 [facility] ([place]) Comment on above: Performed By: #### L AC, ADIFF, MDW, CBC, GFR, CMP, TROPHS, ANEU #### [place] [address] .GFRon 04-01-2023 GFR 77 ml/min/1.73sqm Normal [facility] ([place]) Comment on above: Result Comment: GFR Population [...] MDW, CBC, GFR, CMP, TROPHS, ANEU #### [place] [address] GFR Non- 64 ml/min/1.73sqm Normal [facility] ([place]) Comment on above: Result Comment: GFR [...] MDW, CBC, GFR, CMP, TROPHS, ANEU #### [address] [address] AMYon 04-01-2023 Amylase [Catalytic activity/Vol] 66 U/L Normal 25-115 [facility] ([place]) Comment on above: Performed By: #### L RADHA SARGENT MDW, CBC, GFR, CMP, TROPHS, ANEU #### [address] [address] CMPon 04-01-2023 Albumin Level 2.3 G/dL Low 3.4-4.8 [facility] ([place]) Comment on above: Performed By: #### L RADHA SARGENT MDW, CBC, GFR, CMP, TROPHS, ANEU #### [place] [id number] Albumin/Globulin [Mass ratio] 0.7 {ratio} Low 1.1-2.5 [facility] ([place] Comment on above: Performed By: #### L RADHA SARGENT MDW, CBC, GFR, CMP, TROPHS, ANEU #### [address] [address] ALP [Catalytic activity/Vol] 161 U/L High 40-135 [facility] ([place] Comment on above: Performed By: #### L RADHA SARGENT MDW, CBC, GFR, CMP, TROPHS, ANEU #### [address] [address] ALT [Catalytic activity/Vol] 47 U/L Normal 16-63 [facility] ([place] Comment on above: Performed By: #### L RADHA SARGENT MDW, CBC, GFR, CMP, TROPHS, ANEU #### [address] [address] AST [Catalytic activity/Vol] 56 U/L High 10-40 [facility] ([place] Comment on above: Performed By: #### L RADHA SARGENT MDW, CBC, GFR, CMP, TROPHS, ANEU #### [address] [address] Bili Total 0.5 mg/dL Normal 0.2-1.0 [facility] ([place]) Comment on above: Result Comment: Use of this assay is not recommended for patients undergoing treatment with eltrombopag due to the potential for falsely elevated results. Performed By: #### L RADHA SARGENT MDW, CBC, GFR, CMP, TROPHS, ANEU #### [address] [address] BUN/Creatinine Ratio 6 ratio Low 7-27 [facility] ([place]) Comment on above: Performed By: #### L RADHA SARGENT MDW, CBC, GFR, CMP, TROPHS, ANEU #### [address] [address] Calcium [Mass/Vol] 8.2 mg/dL Low 8.4-10.2 [facility] ([place]) Comment on above: Performed By: #### L RADHA SARGENT MDW, CBC, GFR, CMP, TROPHS, ANEU #### [address] [address] Chloride [Moles/Vol] 105 mmol/L Normal 98-107 [facility] ([place]) Comment on above: Performed By: #### L RADHA SARGENT MDW, CBC, GFR, CMP, TROPHS, ANEU #### [address] [address] CO2 [Moles/Vol] 28 mmol/L Normal 23-31 [facility] ([place]) Comment on above: Performed By: #### L RADHA SARGENT MDW, CBC, GFR, CMP, TROPHS, ANEU #### [address] [address] Creatinine [Mass/Vol] 1.17 mg/dL Normal 0.70-1.30 [facility] ([place]) Comment on above: Performed By: #### L RADHA SARGENT MDW, CBC, GFR, CMP, TROPHS, ANEU #### [address] [address] Electrolyte Balance 5.0 mEq/L Normal 4.0-15.0 [facility] ([place]) Comment on above: Performed By: #### L RADHA SARGENT MDW, CBC, GFR, CMP, TROPHS, ANEU #### [address] [address] Globulin 3.1 G/dL Normal [facility] ([place] Comment on above: Performed By: #### L RADHA SARGENT MDW, CBC, GFR, CMP, TROPHS, ANEU #### [place] [address] Glucose [Mass/Vol] 211 mg/dL High 80-115 [facility] ([place] Comment on above: Performed By: #### L RADHA SARGENT MDW, CBC, GFR, CMP, TROPHS, ANEU #### [place] [address] Potassium [Moles/Vol] 5.4 mmol/L High 3.5-5.1 [facility] ([place]) Comment on above: Performed By: #### L RADHA SARGENT MDW, CBC, GFR, CMP, TROPHS, ANEU #### [place] [address] Sodium [Moles/Vol] 138 mmol/L Normal 136-145 [facility] ([place] Comment on above: Performed By: #### L RADHA SARGENT MDW, CBC, GFR, CMP, TROPHS, ANEU #### [place] [address] Total Protein 5.4 G/dL Low 6.4-8.2 [facility] ([place] Comment on above: Performed By: #### L RADHA SARGENT MDW, CBC, GFR, CMP, TROPHS, ANEU #### [place] [address] Urea nitrogen [Mass/Vol] 7 mg/dL Normal 7-18 [facility] ([place] Comment on above: Performed By: #### RADHA COSTA MDW, CBC, GFR, CMP, TROPHS, ANEU #### [address] [address] FEon 04-01-2023 Iron [Mass/Vol] 79 ug/dL Normal 65-175 [facility] ([place] Comment on above: Performed By: #### RADHA COSTA MDW, CBC, GFR, CMP, TROPHS, ANEU #### [place] [id number] IBCon 04-01-2023 TIBC 118 mcg/dL Low 250-450 [facility] ([place] Comment on above: Performed By: #### L RADHA SARGENT MDW, CBC, GFR, CMP, TROPHS, ANEU #### [place] [address] LIPon 04-01-2023 Lipase Level <10 Low 16-77 [facility] ([place] Comment on above: Performed By: #### L RADHA SARGENT MDW, CBC, GFR, CMP, TROPHS, ANEU #### [place] [address] MGon 04-01-2023 Magnesium [Mass/Vol] 1.9 mg/dL Normal 1.8-2.4 [facility] ([place]) Comment on above: Performed By: #### L RADHA SARGENT MDW, CBC, GFR, CMP, TROPHS, ANEU #### [place] [address] TSHon 04-01-2023 TSH Qn 1.36 m[IU]/L Normal 0.36-3.74 [facility] ([place]) Comment on above: Performed By: #### L RADHA SARGENT MDW, CBC, GFR, CMP, TROPHS, ANEU #### [place] [address] VIDHon 04-01-2023 Vit. D 25-Hydroxy 41.5 ng/mL Normal [facility] ([place]) Comment on above: Result Comment: Inte rpretive Values Based on Total 25(OH) Vitamin D: Deficient <20 ng/mL Insufficient 20 - <30 ng/mL Sufficient 30-100 ng/mL Performed By: #### L RADHA SARGENT MDW, CBC, GFR, CMP, TROPHS, ANEU #### [place] [address] .Auto Diffon 03-19-2023 Basophil, Absolute 0.0 10 3/mcL Normal 0.0-0.3 [facility] ([place] Comment on above: Performed By: #### L RADHA SARGENT MDW, CBC, GFR, CMP, TROPHS, ANEU #### [place] [address] Basophils/100 WBC (Bld) 0.8 % Normal 0.0-2.5 [facility] ([place]) Comment on above: Performed By: #### L AC, RADHA, W, CBC, GFR, CMP, TROPHS, ANEU #### [address] [address] Eosinophil, Absolute 0.1 10 3/mcL Normal 0.0-0.7 [facility] ([place]) Comment on above: Performed By: #### L AC, ADIFF, MDW, CBC, GFR, CMP, TROPHS, ANEU #### [address] [address] Eosinophils/100 WBC (Bld) 2.3 % Normal 0.0-6.0 [facility] ([place] Comment on above: Performed By: #### L AC, ADIFF, MDW, CBC, GFR, CMP, TROPHS, ANEU #### [address] [address] Lymphocyte, Absolute 1.1 10 3/mcL Normal 0.9-4.3 [facility] ([place] Comment on above: Performed By: #### L AC, RADHA, MDW, CBC, GFR, CMP, TROPHS, ANEU #### [address] [address] Lymphocytes/100 WBC (Bld) 18.7 % Low 20.0-40.0 [facility] ([place] Comment on above: Performed By: #### L AC, RADHA, MDW, CBC, GFR, CMP, TROPHS, ANEU #### [address] [address] Monocyte, Absolute 0.7 10 3/mcL Normal 0.1-1.4 [facility] ([place] Comment on above: Performed By: #### L AC, RADHA, MDW, CBC, GFR, CMP, TROPHS, ANEU #### [address] [address] Monocytes/100 WBC (Bld) 13.0 % Normal 2.0-13.0 [facility] ([place]) Comment on above: Performed By: #### L AC, ADIFF, MDW, CBC, GFR, CMP, TROPHS, ANEU #### [address] [address] Neutrophils/100 WBC (Bld) 65.2 % Normal 50.0-75.0 [facility] ([place] Comment on above: Performed By: #### L RADHA SARGENT MDW, CBC, GFR, CMP, TROPHS, ANEU #### [address] [address] .GFRon 03-19-2023 GFR >60 Normal [facility] ([place] Comment on above: Result Comment: GFR Population [...] MDW, CBC, GFR, CMP, TROPHS, ANEU #### [address] [address] GFR Non- >60 Normal [facility] ([place]) Comment on above: Result Comment: GFR Population [...] MDW, CBC, GFR, CMP, TROPHS, ANEU #### [address] [address] .NEUABSon 03-19-2023 Neutrophil, Absolute 3.7 10 3/mcL Normal 2.3-8.1 [facility] ([place] Comment on above: Performed By: #### L RADHA SARGENT MDW, CBC, GFR, CMP, TROPHS, ANEU #### [address] [address] BMPon 03-19-2023 BUN/Creatinine Ratio 10.2 ratio Normal 10.0-22.0 [facility] ([place] Comment on above: Performed By: #### L RADHA SARGENT MDW, CBC, GFR, CMP, TROPHS, ANEU #### [place] [address] Calcium [Mass/Vol] 7.9 mg/dL Low 8.7-10.4 [facility] ([place] Comment on above: Performed By: #### L RADHA SARGENT MDW, CBC, GFR, CMP, TROPHS, ANEU #### [address] [address] Chloride [Moles/Vol] 111 mmol/L High 98-110 [facility] ([place] Comment on above: Performed By: #### L RADHA SARGENT MDW, CBC, GFR, CMP, TROPHS, ANEU #### [address] [address] CO2 [Moles/Vol] 21 mmol/L Low 22-32 [facility] ([place] Comment on above: Performed By: #### L RADHA SARGENT MDW, CBC, GFR, CMP, TROPHS, ANEU #### [address] [address] Creatinine [Mass/Vol] 1.08 mg/dL Normal 0.60-1.40 [facility] ([place]) Comment on above: Performed By: #### L RADHA SARGENT MDW, CBC, GFR, CMP, TROPHS, ANEU #### [address] [address] Electrolyte Balance 7.0 mEq/L Normal 4.0-15.0 [facility] ([place]) Comment on above: Performed By: #### L RADHA SARGENT MDW, CBC, GFR, CMP, TROPHS, ANEU #### [address] [address] Glucose [Mass/Vol] 74 mg/dL Low 82-115 [facility] ([place] Comment on above: Performed By: #### L RADHA SARGENT MDW, CBC, GFR, CMP, TROPHS, ANEU #### [address] [address] Potassium [Moles/Vol] 4.6 mmol/L Normal 3.5-5.0 [facility] ([place]) Comment on above: Performed By: #### L RADHA SARGENT MDW, CBC, GFR, CMP, TROPHS, ANEU #### [address] [address] Sodium [Moles/Vol] 139 mmol/L Normal 136-145 [facility] ([place] Comment on above: Performed By: #### L RADHA SARGENT MDW, CBC, GFR, CMP, TROPHS, ANEU #### [address] [address] Urea nitrogen [Mass/Vol] 11.0 mg/dL Normal 8.0-22.0 [facility] ([place] Comment on above: Performed By: #### RADHA COSTA MDW, CBC, GFR, CMP, TROPHS, ANEU #### [address] [address] CBCon 03-19-2023 Erythrocyte distribution width (RBC) [Ratio] 14.6 % Normal 11.5-15.5 [facility] ([place] Comment on above: Performed By: #### L RADHA SARGENT MDW, CBC, GFR, CMP, TROPHS, ANEU #### [address] [address] Hematocrit (Bld) [Volume fraction] 36.3 % Low 40.0-52.0 [facility] ([place] Comment on above: Performed By: #### L RADHA SARGENT MDW, CBC, GFR, CMP, TROPHS, ANEU #### [place] [address] Hgb 12.2 G/dL Low 13.0-17.5 [facility] ([place] Comment on above: Performed By: #### L RADHA SARGETN MDW, CBC, GFR, CMP, TROPHS, ANEU #### [place] [address] MCH (RBC) [Entitic mass] 34.5 pg High 27.0-33.0 [facility] ([place] Comment on above: Performed By: #### L RADHA SARGENT MDW, CBC, GFR, CMP, TROPHS, ANEU #### [place] [address] MCHC 33.6 G/dL Normal 32.0-36.0 [facility] ([place] Comment on above: Performed By: #### L RADHA SARGENT MDW, CBC, GFR, CMP, TROPHS, ANEU #### [place] [address] MCV (RBC) [Entitic vol] 102.6 fL High 81.0-100.0 [facility] ([place] Comment on above: Performed By: #### L RADHA SARGENT MDW, CBC, GFR, CMP, TROPHS, ANEU #### [place] [address] Platelet 165 10 3/mcL Normal 150-450 [facility] ([place] Comment on above: Performed By: #### L RADHA SARGENT MDW, CBC, GFR, CMP, TROPHS, ANEU #### [place] [address] Platelet mean volume (Bld) [Entitic vol] 8.8 fL Normal 6.4-10.5 [facility] ([place] Comment on above: Performed By: #### L RADHA SARGENT MDW, CBC, GFR, CMP, TROPHS, ANEU #### [place] [address] RBC 3.53 10 6/mcL Low 4.50-6.00 [facility] ([place]) Comment on above: Performed By: #### L RADHA SARGENT MDW, CBC, GFR, CMP, TROPHS, ANEU #### [facility] [address] [place] [address] WBC 5.7 10 3/mcL Normal 4.5-10.8 [facility] ([place]) Comment on above: Performed By: #### L RADHA SARGENT MDW, CBC, GFR, CMP, TROPHS, ANEU #### [facility] [address] [place] [address] LABORATORYOrdered By: Yessica Collazo on 03-19-2023 Blood Glucose Testing Reason Routine (03/19/23 11:18 AM) [facility] Work Phone: Glucose [Mass/Vol] 123 mg/dL High 82 - 115 mg/dL [facility] Work Phone: LABORATORYOrdered By: Esequiel Porter on 03-19-2023 Blood Glucose Testing Reason Routine (03/19/23 8:26 AM) [facility] Work Phone: Glucose [Mass/Vol] 122 mg/dL High 82 - 115 mg/dL [facility] Work Phone: LABORATORYOrdered By: Syd Aguayo on 03-19-2023 Glucose [Mass/Vol] 42 mg/dL Invalid Interpretation Code 82 - 115 mg/dL [facility] Work Phone: LABORATORYOrdered By: SYSTEM SYSTEM on 03-19-2023 Basophils (Bld) [#/Vol] 0.0 103/mcL Normal 0.0 - 0.3 10^3/mcL [facility] Workflow SS Basophils/100 WBC (Bld) 0.8 % Normal 0.0 - 2.5 % [facility] Workflow SS Calcium [Mass/Vol] 7.9 mg/dL Low 8.7 - 10. 4 mg/dL [facility] ADM [facility] Chloride [Moles/Vol] 111 mmol/L High 98 - 11 0 mEq/L [facility] CO2 [Moles/Vol] 21 mmol/L Low 22 - 32 mEq/L [facility] ADM [facility] Creatinine [Mass/Vol] 1.08 mg/dL Normal 0.60 - 1.40 mg/dL [facility] ADM SS Electrolyte Balance 7.0 mEq/L Normal 4.0 - 15 .0 mEq/L [facility] ADM SS Eosinophils (Bld) [#/Vol] 0.1 103/mcL Normal 0.0 - 0.7 10^3/mcL [facility] Workflow SS Eosinophils/100 WBC (Bld) 2.3 % Normal 0.0 - 6.0 % [facility] Workflow SS Erythrocyte distribution width (RBC) [Ratio] 14.6 % Normal 11.5 - 15.5 % Workflow SS GFR/1.73 sq M.predicted among blacks MDRD (S/P/Bld) [Vol rate/Area] ml/min/1.73sqm Invalid Interpretation Code [employer] Chemistry S Comment on above: Interpretive Data: [...] (S/P/Bld) [Vol rate/Area] ml/min/1.73sqm Invalid Interpretation Code [employer] Chemistry S Comment on above: Interpretive Data: [...] 36.3 % Low 40.0 - 52.0 % [facility] Workflow SS Hemoglobin (Bld) [Mass/Vol] 12.2 G/dL Low 13.0 - 17.5 G/dL [facility] Workflow SS Lymphocytes (Bld) [#/Vol] 1.1 103/mcL Normal 0.9 - 4.3 10^3/mcL [facility] Workflow SS Lymphocytes/100 WBC (Bld) 18.7 % Low 20.0 - 40.0 % [facility] Workflow SS MCH (RBC) [Entitic mass] 34.5 pg High 27.0 - 33.0 pg [facility] Workflow SS MCHC 33.6 G/dL Normal 32.0 - 36.0 G/dL [facility] Workflow SS MCV (RBC) [Entitic vol] 102.6 fL High 81.0 - 100.0 fL Workflow SS Monocytes (Bld) [#/Vol] 0.7 103/mcL Normal 0.1 - 1.4 10^3/mcL [facility] Workflow SS Monocytes/100 WBC (Bld) 13.0 % Normal 2.0 - 13.0 % [facility] Workflow SS Neutrophils (Bld) [#/Vol] 3.7 103/mcL Normal 2.3 - 8.1 10^3/mcL [facility] Workflow SS Neutrophils/100 WBC (Bld) 65.2 % Normal 50.0 - 75.0 % [facility] Workflow SS Platelet mean volume (Bld) [Entitic vol] 8.8 fL Normal 6.4 - 10.5 fL [facility] Workflow SS Platelets (Bld) [#/Vol] 165 103/mcL Normal 150 - 450 10^3/mcL [facility] Workflow SS Potassium [Moles/Vol] 4.6 mmol/L Normal 3.5 - 5.0 mEq/L [facility] ADM SS RBC (Bld) [#/Vol] 3.53 106/mcL Low 4.50 - 6.0 0 10^6/mcL [facility] Workflow SS Sodium [Moles/Vol] 139 mmol/L Normal 136 - 145 mEq/L ADM SS Urea nitrogen [Mass/Vol] 11.0 mg/dL Normal 8.0 - 22.0 mg/dL ADM SS Urea nitrogen/Creatinine [Mass ratio] 10.2 ratio Normal 10.0 - 22.0 ratio AH ADM SS WBC (Bld) [#/Vol] 5.7 103/mcL Normal 4.5 - 10.8 10^3/mcL [facility] Workflow SS LABORATORYOrdered By: Bebeto Abbasi on 03-18-2023 Blood Glucose Testing Reason Routine (03/18/23 9:26 PM) [facility] Work Phone: LABORATORYOrdered By: Lin Hughes on 03-18-2023 Blood Glucose Interventions Retest (03/18/23 8:48 AM) [facility] Work Phone: Blood Glucose Interventions Administered agent to increase blood sugar (03/18/23 7:34 AM) [facility] Work Phone: MRI BRAIN W/O [...] 03/18/2023 7:45:52 PM Ordering Provider: MARIELY White [facility] ([place]) .Auto Diffon 03-17-2023 Basophil, Absolute 0.1 10 3/mcL Normal 0.0-0.3 [facility] ([place]) Comment on above: Performed By: #### L AC, RADHA, MDW, CBC, GFR, CMP, TROPHS, ANEU #### [address] [address] Basophils/100 WBC (Bld) 1.3 % Normal 0.0-2.5 [facility] ([place]) Comment on above: Performed By: #### L AC, RADHA, MDW, CBC, GFR, CMP, TROPHS, ANEU #### [address] [address] Eosinophil, Absolute 0.1 10 3/mcL Normal 0.0-0.7 [facility] ([place]) Comment on above: Performed By: #### L AC, RADHA, MDW, CBC, GFR, CMP, TROPHS, ANEU #### [address] [address] Eosinophils/100 WBC (Bld) 2.6 % Normal 0.0-6.0 [facility] ([place]) Comment on above: Performed By: #### L AC, RADHA, MDW, CBC, GFR, CMP, TROPHS, ANEU #### [address] [address] Lymphocyte, Absolute 1.0 10 3/mcL Normal 0.9-4.3 [facility] ([place]) Comment on above: Performed By: #### L AC, RADHA, W, CBC, GFR, CMP, TROPHS, ANEU #### [address] [address] Lymphocytes/100 WBC (Bld) 21.5 % Normal 20.0-40.0 [facility] ([place] Comment on above: Performed By: #### L AC, RADHA, MDW, CBC, GFR, CMP, TROPHS, ANEU #### [address] [address] Monocyte, Absolute 0.5 10 3/mcL Normal 0.1-1.4 [facility] ([place] Comment on above: Performed By: #### L RADHA SARGENT MDW, CBC, GFR, CMP, TROPHS, ANEU #### [address] [address] Monocytes/100 WBC (Bld) 11.9 % Normal 2.0-13.0 [facility] ([place]) Comment on above: Performed By: #### L RADHA SARGENT MDW, CBC, GFR, CMP, TROPHS, ANEU #### [address] [address] Neutrophils/100 WBC (Bld) 62.7 % Normal 50.0-75.0 [facility] ([place]) Comment on above: Performed By: #### L RADHA SARGENT MDW, CBC, GFR, CMP, TROPHS, ANEU #### [address] [address] .GFRon 03-17-2023 GFR >60 Normal [facility] ([place]) Comment on above: Result Comment: GFR Population [...] MDW, CBC, GFR, CMP, TROPHS, ANEU #### [address] [address] GFR Non- >60 Normal [facility] ([place]) Comment on above: Result Comment: GFR Population [...] MDW, CBC, GFR, CMP, TROPHS, ANEU #### [address] [address] .NEUABSon 03-17-2023 Neutrophil, Absolute 2.8 10 3/mcL Normal 2.3-8.1 [facility] ([place]) Comment on above: Performed By: #### L RADHA SARGENT MDW, CBC, GFR, CMP, TROPHS, ANEU #### [address] [address] BMPon 03-17-2023 BUN/Creatinine Ratio 10.7 ratio Normal 10.0-22.0 [facility] ([place]) Comment on above: Performed By: #### L RADHA SARGENT MDW, CBC, GFR, CMP, TROPHS, ANEU #### [address] [address] Calcium [Mass/Vol] 8.5 mg/dL Low 8.7-10.4 [facility] ([place]) Comment on above: Performed By: #### L RADHA SARGENT MDW, CBC, GFR, CMP, TROPHS, ANEU #### [address] [address] Chloride [Moles/Vol] 109 mmol/L Normal 98-110 [facility] ([place]) Comment on above: Performed By: #### L RADHA SARGENT MDW, CBC, GFR, CMP, TROPHS, ANEU #### [address] [address] CO2 [Moles/Vol] 27 mmol/L Normal 22-32 [facility] ([place]) Comment on above: Performed By: #### L RADHA SARGENT MDW, CBC, GFR, CMP, TROPHS, ANEU #### [address] [address] Creatinine [Mass/Vol] 0.84 mg/dL Normal 0.60-1.40 [facility] ([place]) Comment on above: Performed By: #### L RADHA SARGENT MDW, CBC, GFR, CMP, TROPHS, ANEU #### [address] [address] Electrolyte Balance 3.0 mEq/L Low 4.0-15.0 [facility] ([place]) Comment on above: Performed By: #### L RADHA SARGENT MDW, CBC, GFR, CMP, TROPHS, ANEU #### [address] [address] Glucose [Mass/Vol] 69 mg/dL Low 82-115 [facility] ([place]) Comment on above: Performed By: #### L RADHA SARGENT MDW, CBC, GFR, CMP, TROPHS, ANEU #### [address] [address] Potassium [Moles/Vol] 4.4 mmol/L Normal 3.5-5.0 [facility] ([place]) Comment on above: Performed By: #### L RADHA SARGENT MDW, CBC, GFR, CMP, TROPHS, ANEU #### [address] [address] Sodium [Moles/Vol] 139 mmol/L Normal 136-145 [facility] ([place]) Comment on above: Performed By: #### L RADHA SARGENT MDW, CBC, GFR, CMP, TROPHS, ANEU #### [address] [address] Urea nitrogen [Mass/Vol] 9.0 mg/dL Normal 8.0-22.0 [facility] ([place]) Comment on above: Performed By: #### L RADHA SARGENT MDW, CBC, GFR, CMP, TROPHS, ANEU #### [address] [address] CBCon 03-17-2023 Erythrocyte distribution width (RBC) [Ratio] 14.3 % Normal 11.5-15.5 [facility] ([place]) Comment on above: Performed By: #### L RADHA SARGENT MDW, CBC, GFR, CMP, TROPHS, ANEU #### [place] [address] Hematocrit (Bld) [Volume fraction] 37.6 % Low 40.0-52.0 [facility] ([place]) Comment on above: Performed By: #### L RADHA SARGENT MDW, CBC, GFR, CMP, TROPHS, ANEU #### [place] [address] Hgb 12.7 G/dL Low 13.0-17.5 [facility] ([place]) Comment on above: Performed By: #### L RADHA SARGENT MDW, CBC, GFR, CMP, TROPHS, ANEU #### [place] [address] MCH (RBC) [Entitic mass] 34.2 pg High 27.0-33.0 [facility] ([place]) Comment on above: Performed By: #### L RADHA SARGENT MDW, CBC, GFR, CMP, TROPHS, ANEU #### [place] [address] MCHC 33.7 G/dL Normal 32.0-36.0 [facility] ([place]) Comment on above: Performed By: #### L RADHA SARGENT MDW, CBC, GFR, CMP, TROPHS, ANEU #### [place] [id number] MCV (RBC) [Entitic vol] 101.7 fL High 81.0-100.0 [facility] ([place]) Comment on above: Performed By: #### L RADHA SARGENT MDW, CBC, GFR, CMP, TROPHS, ANEU #### [place] [address] Platelet 189 10 3/mcL Normal 150-450 [facility] ([place]) Comment on above: Performed By: #### L RADHA SARGENT MDW, CBC, GFR, CMP, TROPHS, ANEU #### [address] [address] Platelet mean volume (Bld) [Entitic vol] 9.1 fL Normal 6.4-10.5 [facility] ([place]) Comment on above: Performed By: #### L RADHA SARGENT MDW, CBC, GFR, CMP, TROPHS, ANEU #### [place] [address] RBC 3.70 10 6/mcL Low 4.50-6.00 [facility] ([place]) Comment on above: Performed By: #### L RADHA SARGENT MDW, CBC, GFR, CMP, TROPHS, ANEU #### [place] [address] WBC 4.4 10 3/mcL Low 4.5-10.8 [facility] ([place]) Comment on above: Performed By: #### RADHA COSTA MDW, CBC, GFR, CMP, TROPHS, ANEU #### [place] [address] LABORATORYOrdered By: SYSTEM SYSTEM on 03-17-2023 Basophils [...] 10^3/mcL AH Workflow SS Eosinophils/100 WBC (Bld) 2.6 % Normal 0.0 - 6.0 % Workflow SS Erythrocyte distribution width (RBC) [Ratio] 14.3 % Normal 11.5 - 15.5 % Workflow SS GFR/1.73 sq M.predicted among blacks MDRD (S/P/Bld) [Vol rate/Area] ml/min/1.73sqm Invalid Interpretation Code [employer] Chemistry S Comment on above: Interpretive Data: [...] (S/P/Bld) [Vol rate/Area] ml/min/1.73sqm Invalid Interpretation Code [employer] Chemistry S Comment on above: Interpretive Data: [...] 1.0 103/mcL Normal 0.9 - 4.3 10^3/mcL AH Workflow SS Lymphocytes/100 WBC (Bld) 21.5 % Normal 20.0 - 40.0 % AH Workflow SS MCH (RBC) [Entitic mass] 34.2 pg High 27.0 - 33.0 pg AH Workflow SS MCHC 33.7 G/dL Normal 32.0 - 36.0 G/dL AH [...] 10.7 ratio Normal 10.0 - 22.0 ratio ADM SS WBC (Bld) [#/Vol] 4.4 103/mcL Low 4.5 - 10.8 10^3/mcL AH Workflow SS .Auto Diffon 03-16-2023 Basophil, Absolute 0.0 10 3/mcL Normal 0.0-0.3 [facility] ([place]) Comment on above: Performed By: #### L AC, RADHA, W, CBC, GFR, CMP, TROPHS, ANEU #### [address] [address] Basophils/100 WBC (Bld) 0.4 % Normal 0.0-2.5 [facility] ([place]) Comment on above: Performed By: #### L AC, ADIFF, MDW, CBC, GFR, CMP, TROPHS, ANEU #### [address] [address] Eosinophil, Absolute 0.1 10 3/mcL Normal 0.0-0.7 [facility] ([place]) Comment on above: Performed By: #### L AC, ADIFF, MDW, CBC, GFR, CMP, TROPHS, ANEU #### [address] [address] Eosinophils/100 WBC (Bld) 1.2 % Normal 0.0-6.0 [facility] ([place]) Comment on above: Performed By: #### L AC, RADHA, MDW, CBC, GFR, CMP, TROPHS, ANEU #### [address] [address] Lymphocyte, Absolute 0.8 10 3/mcL Low 0.9-4.3 [facility] ([place]) Comment on above: Performed By: #### L AC, RADHA, MDW, CBC, GFR, CMP, TROPHS, ANEU #### [address] [address] Lymphocytes/100 WBC (Bld) 11.6 % Low 20.0-40.0 [facility] ([place]) Comment on above: Performed By: #### L AC, RADHA, MDW, CBC, GFR, CMP, TROPHS, ANEU #### [address] [address] Monocyte, Absolute 0.6 10 3/mcL Normal 0.1-1.4 [facility] ([place]) Comment on above: Performed By: #### L AC, ADIFF, MDW, CBC, GFR, CMP, TROPHS, ANEU #### [address] [address] Monocytes/100 WBC (Bld) 8.3 % Normal 2.0-13.0 [facility] ([place]) Comment on above: Performed By: #### L RADHA SARGENT MDW, CBC, GFR, CMP, TROPHS, ANEU #### [address] [address] Neutrophils/100 WBC (Bld) 78.5 % High 50.0-75.0 [facility] ([place]) Comment on above: Performed By: #### L RADHA SARGENT MDW, CBC, GFR, CMP, TROPHS, ANEU #### [address] [address] .GFRon 03-16-2023 GFR Non- >60 Normal [facility] ([place]) Comment on above: Result Comment: GFR Population [...] MDW, CBC, GFR, CMP, TROPHS, ANEU #### [address] [address] GFR >60 Normal [facility] ([place]) Comment on above: Result Comment: GFR Population [...] MDW, CBC, GFR, CMP, TROPHS, ANEU #### [address] [address] .NEUABSon 03-16-2023 Neutrophil, Absolute 5.3 10 3/mcL Normal 2.3-8.1 [facility] ([place]) Comment on above: Performed By: #### L RADHA SARGENT MDW, CBC, GFR, CMP, TROPHS, ANEU #### [address] [address] BMPon 03-16-2023 BUN/Creatinine Ratio 9.0 ratio Low 10.0-22.0 [facility] ([place]) Comment on above: Performed By: #### L RADHA SARGENT MDW, CBC, GFR, CMP, TROPHS, ANEU #### [address] [address] Calcium [Mass/Vol] 8.1 mg/dL Low 8.7-10.4 [facility] ([place]) Comment on above: Performed By: #### L RADHA SARGENT MDW, CBC, GFR, CMP, TROPHS, ANEU #### [address] [address] Chloride [Moles/Vol] 110 mmol/L Normal 98-110 [facility] ([place]) Comment on above: Performed By: #### L RADHA SARGENT MDW, CBC, GFR, CMP, TROPHS, ANEU #### [address] [address] CO2 [Moles/Vol] 26 mmol/L Normal 22-32 [facility] ([place]) Comment on above: Performed By: #### L RADHA SARGENT MDW, CBC, GFR, CMP, TROPHS, ANEU #### [address] [address] Creatinine [Mass/Vol] 0.89 mg/dL Normal 0.60-1.40 [facility] ([place]) Comment on above: Performed By: #### L RADHA SARGENT MDW, CBC, GFR, CMP, TROPHS, ANEU #### [address] [address] Electrolyte Balance 1.0 mEq/L Low 4.0-15.0 [facility] ([place]) Comment on above: Performed By: #### L RADHA SARGENT MDW, CBC, GFR, CMP, TROPHS, ANEU #### [place] [id number] Glucose [Mass/Vol] 263 mg/dL High 82-115 [facility] ([place]) Comment on above: Performed By: #### L RADHA SARGENT MDW, CBC, GFR, CMP, TROPHS, ANEU #### [place] [id number] Potassium [Moles/Vol] 4.7 mmol/L Normal 3.5-5.0 [facility] ([place]) Comment on above: Result Comment: Spec imen slightly hemolyzed. Performed By: #### L RADHA SARGENT MDW, CBC, GFR, CMP, TROPHS, ANEU #### [place] [address] Sodium [Moles/Vol] 137 mmol/L Normal 136-145 [facility] ([place]) Comment on above: Performed By: #### RADHA COSTA MDW, CBC, GFR, CMP, TROPHS, ANEU #### [place] [id number] Urea nitrogen [Mass/Vol] 8.0 mg/dL Normal 8.0-22.0 [facility] ([place]) Comment on above: Performed By: #### RADHA COSTA MDW, CBC, GFR, CMP, TROPHS, ANEU #### [address] [address] CBCon 03-16-2023 Erythrocyte distribution width (RBC) [Ratio] 14.7 % Normal 11.5-15.5 [facility] ([place]) Comment on above: Performed By: #### L RADHA SARGENT MDW, CBC, GFR, CMP, TROPHS, ANEU #### [place] [address] Hematocrit (Bld) [Volume fraction] 38.7 % Low 40.0-52.0 [facility] ([place]) Comment on above: Performed By: #### L ROSETTA, KEIKO GARCIA, CBC, GFR, CMP, TROPHS, ANEU #### [place] [id number] Hgb 13.0 G/dL Normal 13.0-17.5 [facility] ([place]) Comment on above: Performed By: #### L RADHA SARGENT MDW, CBC, GFR, CMP, TROPHS, ANEU #### [place] [address] MCH (RBC) [Entitic mass] 34.1 pg High 27.0-33.0 [facility] ([place]) Comment on above: Performed By: #### L RADHA SARGENT MDW, CBC, GFR, CMP, TROPHS, ANEU #### [place] [address] MCHC 33.5 G/dL Normal 32.0-36.0 [facility] ([place]) Comment on above: Performed By: #### L RADHA SARGENT MDW, CBC, GFR, CMP, TROPHS, ANEU #### [place] [address] MCV (RBC) [Entitic vol] 101.7 fL High 81.0-100.0 [facility] ([place]) Comment on above: Performed By: #### L RADHA SARGENT MDW, CBC, GFR, CMP, TROPHS, ANEU #### [place] [address] Platelet 196 10 3/mcL Normal 150-450 [facility] ([place]) Comment on above: Performed By: #### L ROSETTA, RADHA, W, CBC, GFR, CMP, TROPHS, ANEU #### [facility] [address] [place], [place] [address] Platelet mean volume (Bld) [Entitic vol] 8.6 fL Normal 6.4-10.5 [facility] ([place]) Comment on above: Performed By: #### L RADHA SARGENT MDW, CBC, GFR, CMP, TROPHS, ANEU #### [facility] [address] [place] [address] RBC 3.80 10 6/mcL Low 4.50-6.00 [facility] ([place]) Comment on above: Performed By: #### L RADHA SARGENT MDW, CBC, GFR, CMP, TROPHS, ANEU #### [facility] [address] [place] [address] WBC 6.7 10 3/mcL Normal 4.5-10.8 [facility] ([place]) Comment on above: Performed By: #### L RADHA SARGENT MDW, CBC, GFR, CMP, TROPHS, ANEU #### [place] [address] LABORATORYOrdered By: SYSTEM SYSTEM on 03-16-2023 Calcium [Mass/Vol] 8.1 mg/dL Low 8.7 - 10. 4 mg/dL ADM SS Chloride [Moles/Vol] 110 mmol/L Normal 98 - 11 0 mEq/L ADM SS CO2 [Moles/Vol] 26 mmol/L Normal 22 - 32 mEq/L ADM SS Creatinine [Mass/Vol] 0.89 mg/dL Normal 0.60 - 1.40 mg/dL ADM SS Electrolyte Balance 1.0 mEq/L Low 4.0 - 15 .0 mEq/L ADM SS GFR/1.73 sq M.predicted among blacks [...] 263 mg/dL High 82 - 115 mg/dL ADM SS Potassium [Moles/Vol] 4.7 mmol/L Normal 3.5 - 5.0 mEq/L ADM SS Comment on above: Result Comment: Spec imen slightly hemolyzed. Sodium [Moles/Vol] 137 mmol/L Normal 136 - 145 mEq/L ADM SS Urea nitrogen [Mass/Vol] 8.0 mg/dL Normal 8.0 - 22.0 mg/dL ADM SS Urea nitrogen/Creatinine [Mass ratio] 9.0 ratio Low 10.0 - 22.0 ratio ADM SS Basophils (Bld) [#/Vol] 0.0 103/mcL Normal 0.0 - 0.3 10^3/mcL Workflow SS Basophils/100 WBC (Bld) 0.4 % Normal 0.0 - 2.5 % Workflow SS Eosinophils (Bld) [#/Vol] 0.1 103/mcL Normal 0.0 - 0.7 10^3/mcL Workflow SS Eosinophils/100 WBC (Bld) 1.2 % Normal 0.0 - 6.0 % Workflow [...] 11.6 % Low 20.0 - 40.0 % AH Workflow SS MCH (RBC) [Entitic mass] 34.1 pg High 27.0 - 33.0 pg AH Workflow SS MCHC 33.5 G/dL Normal 32.0 - 36.0 G/dL Workflow [...] 03-16-2023 Magnesium [Mass/Vol] 1.8 mg/dL Normal 1.6-2.4 [facility] ([place]) Comment on above: Performed By: #### L RADHA SARGENT MDW, CBC, GFR, CMP, TROPHS, ANEU #### [address] [address] PHOSon 03-16-2023 Phosphate [Mass/Vol] 4.6 mg/dL Normal 2.4-5.1 [facility] ([place]) Comment on above: Result Comment: No te - New Reference Range in effect 19 Performed By: #### L RADHA SARGENT MDW, CBC, GFR, CMP, TROPHS, ANEU #### [address] [address] .Auto Diffon 03-15-2023 Basophil, Absolute 0.0 10 3/mcL Normal 0.0-0.3 [facility] ([place]) Comment on above: Performed By: #### L RADHA SARGENT MDW, CBC, GFR, CMP, TROPHS, ANEU #### [address] [address] Basophils/100 WBC (Bld) 0.9 % Normal 0.0-2.5 A [facility] ([place]) Comment on above: Performed By: #### L RADHA SARGENT MDW, CBC, GFR, CMP, TROPHS, ANEU #### [address] [address] Eosinophil, Absolute 0.1 10 3/mcL Normal 0.0-0.7 [facility] ([place]) Comment on above: Performed By: #### L RADHA SARGENT MDW, CBC, GFR, CMP, TROPHS, ANEU #### [address] [address] Eosinophils/100 WBC (Bld) 2.5 % Normal 0.0-6.0 [facility] ([place]) Comment on above: Performed By: #### L RADHA SARGENT MDW, CBC, GFR, CMP, TROPHS, ANEU #### [address] [address] Lymphocyte, Absolute 1.5 10 3/mcL Normal 0.9-4.3 [facility] ([place]) Comment on above: Performed By: #### L RADHA SARGENT MDW, CBC, GFR, CMP, TROPHS, ANEU #### [address] [address] Lymphocytes/100 WBC (Bld) 27.6 % Normal 20.0-40.0 [facility] ([place]) Comment on above: Performed By: #### L RADHA SARGENT MDW, CBC, GFR, CMP, TROPHS, ANEU #### [address] [address] Monocyte, Absolute 0.5 10 3/mcL Normal 0.1-1.4 [facility] ([place]) Comment on above: Performed By: #### L RADHA SARGENT MDW, CBC, GFR, CMP, TROPHS, ANEU #### [address] [address] Monocytes/100 WBC (Bld) 8.7 % Normal 2.0-13.0 [facility] ([place]) Comment on above: Performed By: #### L RADHA SARGENT MDW, CBC, GFR, CMP, TROPHS, ANEU #### [address] [address] Neutrophils/100 WBC (Bld) 60.3 % Normal 50.0-75.0 [facility] ([place]) Comment on above: Performed By: #### L RADHA SARGENT MDW, CBC, GFR, CMP, TROPHS, ANEU #### [address] [address] .GFRon 03-15-2023 GFR Non- >60 Normal [facility] ([place]) Comment on above: Result Comment: GFR Population [...] MDW, CBC, GFR, CMP, TROPHS, ANEU #### [address] [address] GFR >60 Normal [facility] ([place]) Comment on above: Result Comment: GFR Population [...] MDW, CBC, GFR, CMP, TROPHS, ANEU #### [address] [address] .MDWon 03-15-2023 Monocyte Distribution Width 17.99 Normal 0.00-20.00 [facility] ([place]) Comment on above: Result Comment: For ED adult patients suspected of sepsis, MDW<=20.0 does not rule out sepsis or risk of sepsis Performed By: #### L RADHA SARGENT MDW, CBC, GFR, CMP, TROPHS, ANEU #### [address] [address] .NEUABSon 03-15-2023 Neutrophil, Absolute 3.2 10 3/mcL Normal 2.3-8.1 [facility] ([place]) Comment on above: Performed By: #### L RADHA SARGENT MDW, CBC, GFR, CMP, TROPHS, ANEU #### [address] [address] [place] 03-15-2023 Ammonia 27 mcmol/l Normal 11-32 [facility] ([place]) Comment on above: Result Comment: Spec imen slightly hemolyzed. Performed By: #### L RADHA SARGENT MDW, CBC, GFR, CMP, TROPHS, ANEU #### [place] [address] APTTon 03-15-2023 aPTT Coag (Bld) [Time] 29.7 s Normal 25.0-35.0 [facility] ([place]) Comment on above: Order Comment: blue top clotted. called ann-marie. Result Comment: For Heparin anticoagulation therapy, the recommended therapeutic range is: 54-77 seconds (APTT Correlation with Anti-Xa therapeutic range of 0.3-0.7 units/ml). PLEASE REFERENCE THE PHARMACY PROTOCOL FOR DOSING. Performed By: #### L RADHA SARGENT MDW, CBC, GFR, CMP, TROPHS, ANEU #### [place] [address] Heparin dose (APTT) Unknown Normal [facility] ([place]) Comment on above: Order Comment: blue top clotted. called ann-marie. Performed By: #### L RADHA SARGENT MDW, CBC, GFR, CMP, TROPHS, ANEU #### [place] [address] CBCon 03-15-2023 Erythrocyte distribution width (RBC) [Ratio] 14.7 % Normal 11.5-15.5 [facility] ([place]) Comment on above: Performed By: #### L RADHA SARGENT MDW, CBC, GFR, CMP, TROPHS, ANEU #### [place] [address] Hematocrit (Bld) [Volume fraction] 38.5 % Low 40.0-52.0 [facility] ([place]) Comment on above: Performed By: #### L RADHA SARGENT MDW, CBC, GFR, CMP, TROPHS, ANEU #### [place] [address] Hgb 12.8 G/dL Low 13.0-17.5 [facility] ([place]) Comment on above: Performed By: #### L RADHA SARGENT MDW, CBC, GFR, CMP, TROPHS, ANEU #### [place] [address] MCH (RBC) [Entitic mass] 34.0 pg High 27.0-33.0 [facility] ([place]) Comment on above: Performed By: #### L RADHA SARGENT MDW, CBC, GFR, CMP, TROPHS, ANEU #### [place] [address] MCHC 33.1 G/dL Normal 32.0-36.0 [facility] ([place]) Comment on above: Performed By: #### L RADHA SAGRENT MDW, CBC, GFR, CMP, TROPHS, ANEU #### [place] [address] MCV (RBC) [Entitic vol] 102.6 fL High 81.0-100.0 [facility] ([place]) Comment on above: Performed By: #### L RADHA SARGENT MDW, CBC, GFR, CMP, TROPHS, ANEU #### [place] [address] Platelet 204 10 3/mcL Normal 150-450 [facility] ([place]) Comment on above: Performed By: #### L RADHA SARGENT MDW, CBC, GFR, CMP, TROPHS, ANEU #### [place] [address] Platelet mean volume (Bld) [Entitic vol] 9.0 fL Normal 6.4-10.5 [facility] ([place]) Comment on above: Performed By: #### L RADHA SARGENT MDW, CBC, GFR, CMP, TROPHS, ANEU #### [place] [address] RBC 3.75 10 6/mcL Low 4.50-6.00 [facility] ([place]) Comment on above: Performed By: #### L RADHA SARGENT MDW, CBC, GFR, CMP, TROPHS, ANEU #### [address] [address] WBC 5.3 10 3/mcL Normal 4.5-10.8 [facility] ([place]) Comment on above: Performed By: #### L RADHA SARGENT MDW, CBC, GFR, CMP, TROPHS, ANEU #### [address] [address] CMPon 03-15-2023 Albumin Level 2.4 G/dL Low 3.2-4.8 [facility] ([place]) Comment on above: Performed By: #### L RADHA SARGENT MDW, CBC, GFR, CMP, TROPHS, ANEU #### [place] [address] Albumin/Globulin [Mass ratio] 0.9 {ratio} Normal 0.9-1.6 [facility] ([place]) Comment on above: Performed By: #### L RADHA SARGENT MDW, CBC, GFR, CMP, TROPHS, ANEU #### [place] [address] ALP [Catalytic activity/Vol] 125 U/L Normal 38-126 [facility] ([place]) Comment on above: Performed By: #### L RADHA SARGENT MDW, CBC, GFR, CMP, TROPHS, ANEU #### [address] [address] ALT [Catalytic activity/Vol] 29 U/L Normal 12-55 [facility] ([place]) Comment on above: Performed By: #### L RADHA SARGENT MDW, CBC, GFR, CMP, TROPHS, ANEU #### [address] [address] AST [Catalytic activity/Vol] 53 U/L High 8-34 [facility] ([place]) Comment on above: Performed By: #### L RADHA SARGENT MDW, CBC, GFR, CMP, TROPHS, ANEU #### [address] [address] Bili Total <0.20 Normal 0.20-1.20 [facility] ([place]) Comment on above: Result Comment: Use of this assay is not recommended for patients undergoing treatment with eltrombopag due to the potential for falsely elevated results. Performed By: #### L RADHA SARGENT MDW, CBC, GFR, CMP, TROPHS, ANEU #### [address] [address] Calcium [Mass/Vol] 8.0 mg/dL Low 8.7-10.4 [facility] ([place]) Comment on above: Performed By: #### L RADHA SARGENT MDW, CBC, GFR, CMP, TROPHS, ANEU #### [place] [phone] Chloride [Moles/Vol] 110 mmol/L Normal 98-110 [facility] ([place]) Comment on above: Performed By: #### L RADHA SARGENT MDW, CBC, GFR, CMP, TROPHS, ANEU #### [place] [id number] CO2 [Moles/Vol] 23 mmol/L Normal 22-32 [facility] ([place]) Comment on above: Performed By: #### L RADHA SARGENT MDW, CBC, GFR, CMP, TROPHS, ANEU #### [place] [id number] Creatinine [Mass/Vol] 0.92 mg/dL Normal 0.60-1.40 [facility] ([place]) Comment on above: Performed By: #### L RADHA SARGENT MDW, CBC, GFR, CMP, TROPHS, ANEU #### [place] [id number] Electrolyte Balance 8.0 mEq/L Normal 4.0-15.0 [facility] ([place]) Comment on above: Performed By: #### RADHA COSTA MDW, CBC, GFR, CMP, TROPHS, ANEU #### [address] [address] Globulin 2.8 G/dL Normal 1.5-3.8 [facility] ([place]) Comment on above: Performed By: #### RADHA COSTA MDW, CBC, GFR, CMP, TROPHS, ANEU #### [address] [address] Glucose [Mass/Vol] 241 mg/dL High 82-115 [facility] ([place]) Comment on above: Performed By: #### L RADHA SARGENT MDW, CBC, GFR, CMP, TROPHS, ANEU #### [address] [address] Potassium [Moles/Vol] 4.1 mmol/L Normal 3.5-5.0 [facility] ([place]) Comment on above: Result Comment: Spec imen slightly hemolyzed. Performed By: #### L RADHA SARGENT MDW, CBC, GFR, CMP, TROPHS, ANEU #### [address] [address] Sodium [Moles/Vol] 141 mmol/L Normal 136-145 [facility] ([place]) Comment on above: Performed By: #### L RADHA SARGENT MDW, CBC, GFR, CMP, TROPHS, ANEU #### [address] [address] Total Protein 5.2 G/dL Low 5.7-8.2 [facility] ([place]) Comment on above: Result Comment: No te - New Reference Range in effect 19 Performed By: #### L RADHA SARGENT MDW, CBC, GFR, CMP, TROPHS, ANEU #### [address] [address] Urea nitrogen [Mass/Vol] mg/dL Low 8.0-22.0 [facility] ([place]) Comment on above: Performed By: #### L RADHA SARGENT MDW, CBC, GFR, CMP, TROPHS, ANEU #### [address] [address] Urea nitrogen/Creatinine [Mass ratio] mg/mg Low 10.0-22.0 [facility] ([place]) Comment on above: Performed By: #### L RADHA SARGENT MDW, CBC, GFR, CMP, TROPHS, ANEU #### [address] [address] [address] ABD/PELVIS W/ IV CONTRAST ONLYon 03-15-2023 [...] 03/15/2023 3:04:31 PM Ordering Provider: PEREZ [facility] ([place]) CT HEAD OR BRAIN W/O SHAWN Braxton 03-15-2023 CT HEAD OR BRAIN W/O CONTRAST [...] Date: 03/15/2023 2:37:44 PM Ordering Provider: PEREZ RIBEIRO [facility] ([place]) CVFLURVon 03-15-2023 FLU A PCR Negative Normal Negative [facility] ([place]) Comment on above: Result Comment: Note s 1990 Performed By: #### L RADHA SARGENT MDW, CBC, GFR, CMP, TROPHS, ANEU #### [address] [address] FLU B PCR Negative Normal Negative [facility] ([place]) Comment on above: Result Comment: Note s 1990 Performed By: #### L RADHA SARGENT MDW, CBC, GFR, CMP, TROPHS, ANEU #### [address] [address] RSV PCR Negative Normal Negative [facility] ([place]) Comment on above: Result Comment: Note s 1990 Performed By: #### L RADHA SARGENT MDW, CBC, GFR, CMP, TROPHS, ANEU #### [address] [address] SARS-CoV-2 (COVID-19) RNA GENEVA+probe Ql (Unsp spec) Negative Normal Negative [facility] ([place]) Comment on above: Result Comment: Note s [...] inaccurate positive results. Performed By: #### L RADHA SARGENT MDW, CBC, GFR, CMP, TROPHS, ANEU #### [address] [address] LABORATORYOrdered By: SYSTEM SYSTEM on 03-15-2023 Ammonia (P) [Moles/Vol] 27 umol/L Normal 11 - 32 mcmol/L AH ADM SS Comment on above: Result Comment: Spec imen slightly hemolyzed. Albumin BCP dye [Mass/Vol] 2.4 G/dL Low 3.2 - 4.8 G/dL AH ADM SS Albumin/Globulin [Mass ratio] 0.9 {ratio} Normal 0.9 - 1.6 ratio AH ADM SS ALP [Catalytic activity/Vol] 125 U/L Normal 38 - 126 U/L AH ADM SS ALT No additional P-5'-P [Catalytic [...] mmol/L High 0.2 - 2. 0 mmol/L Auto Chem SS LACon 03-15-2023 Lactic Acid Lvl 2.2 mmol/L High 0.2-2.0 [facility] ([place]) Comment on above: Performed By: #### L RADHA SARGENT MDW, CBC, GFR, CMP, TROPHS, ANEU #### [place] [address] Lactic Acid Lvl 4.2 mmol/L High 0.2-2.0 [facility] ([place]) Comment on above: Performed By: #### L RADHA SARGENT MDW, CBC, GFR, CMP, TROPHS, ANEU #### [place] [id number] No Panel Informationon 03-15 Culture Urine No growth at 48 hours. [facility] Work Phone: Microscopic examination of blood, culture Culture has been received in lab and is no growth to date. Routine cultures are held for 5 days. [facility] Work Phone: TROPHSon 03-15-2023 Troponin I High Sensitivity 6.63 ng/L Normal 0.00-54.00 [facility] ([place]) Comment on above: Performed By: #### L RADHA SARGENT MDW, CBC, GFR, CMP, TROPHS, ANEU #### [address] [address] UAon 03-15-2023 Color (U) Yellow Normal [facility] ([place]) Comment on above: Performed By: #### L RADHA SARGENT MDW, CBC, GFR, CMP, TROPHS, ANEU #### [address] [address] Glucose (U) [Mass/Vol] mg/dL Abnormal Negative [facility] ([place]) Comment on above: Performed By: #### L RADHA SARGENT MDW, CBC, GFR, CMP, TROPHS, ANEU #### [address] [address] Ketones Ql (U) Negative Normal Neg-Trace [facility] ([place] Comment on above: Performed By: #### L RADHA SARGENT MDW, CBC, GFR, CMP, TROPHS, ANEU #### [address] [address] UA Appear Clear Normal Clear [facility] ([place] Comment on above: Performed By: #### L RADHA SARGENT MDW, CBC, GFR, CMP, TROPHS, ANEU #### [address] [address] UA Blood Trace Normal Neg-Trace [facility] ([place]) Comment on above: Performed By: #### L RADHA SARGENT MDW, CBC, GFR, CMP, TROPHS, ANEU #### [address] [address] UA Leuk Est Negative Normal Negative [facility] ([place]) Comment on above: Performed By: #### L RADHA SARGENT MDW, CBC, GFR, CMP, TROPHS, ANEU #### [address] [address] UA Nitrite Negative Normal Negative [facility] ([place]) Comment on above: Performed By: #### L RADHA SARGENT MDW, CBC, GFR, CMP, TROPHS, ANEU #### [address] [address] UA pH 7.0 Normal 5.0 - 8.0 [facility] ([place]) Comment on above: Performed By: #### L RADHA SARGENT MDW, CBC, GFR, CMP, TROPHS, ANEU #### [place] [id number] UA Protein Negative Normal Negative [facility] ([place]) Comment on above: Performed By: #### L RADHA SARGENT MDW, CBC, GFR, CMP, TROPHS, ANEU #### [place] [address] UA Spec Grav <=1.005 Abnormal 1.006-1.029 [facility] ([place]) Comment on above: Performed By: #### L RADHA SARGENT MDW, CBC, GFR, CMP, TROPHS, ANEU #### [place] [address] UA Specimen Type Clean Catch Normal [facility] ([place]) Comment on above: Performed By: #### L RADHA SARGENT MDW, CBC, GFR, CMP, TROPHS, ANEU #### [place] [address] UA Urobilinogen 0.2 E.U./dL Normal 0.2-1.0 [facility] ([place]) Comment on above: Performed By: #### L RADHA SARGENT MDW, CBC, GFR, CMP, TROPHS, ANEU #### [place] [address] Urobilinogen (U) [Mass/Vol] Negative Normal Neg-Trace [facility] ([place]) Comment on above: Performed By: #### L RADHA SARGENT MDW, CBC, GFR, CMP, TROPHS, ANEU #### [place] [address] XR CHEST 1 VIEWon 03-15-2023 XR CHEST [...] Date: 03/15/2023 11:32:58 AM Ordering Provider: [facility] ([place]) Absolute lymphocyte countOrd ered By: Vinh Lomeli on 11-01-2022 Lymphocytes Auto (Unsp spec) [#/Vol] 1.39 10*3/uL 0.83-4.51 [facility] Basophil percentageOrdered B y: Vinh Lomeli on 11-01-2022 Basophils/100 WBC (Bld) 1.1 % 0-[address] [facility] Bilirubin [Mass/Vol] 0.40 mg/dL 0.20-1.00 [facility] Comment on above: For patients on eltr ombopag therapy, use of Dimension [place] TBIL is not recommended. Chloride [Moles/Vol] 101 mmol/L 98-107 [facility] Eosinophils/100 WBC (Bld) 1.1 % 0-5 [facility] Glucose [Mass/Vol] 205 mg/dL 74-106 [facility] Comment on above: Glucose result great er than or equal to 200 mg/dLsuggests DIABETES MELLITUS per A.D.A. criteria. Neutrophils (Bld) [#/Vol] 4.4 10*3/uL 2.0-7.7 [facility] Neutrophils/100 WBC (Bld) 67.9 % 47-70 [facility] Potassium [Moles/Vol] 3.1 mmol/L 3.5-5.1 [facility] Protein [Mass/Vol] 6.5 g/dL 6.4-8.2 [facility] Sodium [Moles/Vol] 141 mmol/L 136-145 [facility] WBC (Bld) [#/Vol] 6.5 10*3/uL 4.4-11.0 [facility] Blood erythrocytes count (nu mber/volume)Ordered By: Vinh Lomeli on 11-01-2022 RBC (Bld) [#/Vol] 4.33 10*6/uL 4.6-6.2 [facility] Blood hemoglobin measurement (mass/volume)Ordered By: Vinh Lomeli on 11-01-2022 Hemoglobin (Bld) [Mass/Vol] 14.1 g/dL 13.0-16.5 [facility] Blood lymphocytes/100 leukoc ytesOrdered By: Vinh Lomeli on 11-01-2022 Lymphocytes/100 WBC (Bld) 21.5 % 19-41 [facility] Blood monocytes/100 leukocyt esOrdered By: Vinh Lomeli on 11-01-2022 Monocytes/100 WBC (Bld) 7.9 % 0-[address] [facility] Blood platelet mean volumeOr dered By: Vinh Lomeli on 11-01-2022 Platelet mean volume (Bld) [Entitic vol] 10.7 fL 6.2-12.0 [facility] Determination of erythrocyte mean corpuscular volume (MCV)Ordered By: Vinh Lomeli on 11-01-2022 MCV (RBC) [Entitic vol] 96.8 fL 80-[address] [facility] Hematocrit Auto (Bld) [Volum e fraction]Ordered By: Vinh Lomeli on 11-01-2022 Hematocrit (Bld) [Volume fraction] 41.9 % 40-54 [facility] Laboratory - Chemistry and C hemistry - challengeOrdered By: Vinh Lomeli on 11-01-2022 ALP [Catalytic activity/Vol] 196 U/L 45-117 [facility] ALT [Catalytic activity/Vol] 189 U/L 16-61 [facility] CO2 [Moles/Vol] 31.0 mmol/L 21.0-32.0 [facility] Globulin (S) [Mass/Vol] 3.5 g/dL 2.2-4.[address] [facility] Lipase [Catalytic activity/Vol] U/L 13-75 [facility] Comment on above: Please note:LIPASE r evised reference range effective 22. New Lipase methodology. Expected to produce lower values than the previous assay method. NEW Reference Range: 13 - 75 U/L Urea nitrogen/Creatinine [Mass ratio] 5.0 mg/mg 10-20 [facility] - Hematology and Cell countsOrdered By: Vinh Lomeli on 11-01-2022 Erythrocyte distribution width (RBC) [Entitic vol] 45.1 fL 35.1-43.9 [facility] Erythrocyte distribution width (RBC) [Ratio] 12.5 % 11.6-14.6 [facility] Immature granulocytes/100 WBC (Bld) 0.500 % 0.0-0.9 [facility] Comment on above: IG% - Immature Granu locytes (promyelocytes, myelocytes and metamyelocytes) > 1% indicates that a LEFT SHIFT is Present. MCH (RBC) [Entitic mass] 32.6 pg 27.0-32.0 [facility] Nucleated RBC/100 WBC (Bld) [Ratio] 0 % 0-5 [facility] MCHC Auto (RBC) [Mass/Vol]Or dered By: Vinh Lomeli on 11-01-2022 MCHC (RBC) [Mass/Vol] 33.7 g/dL 32-36 [facility] No Panel InformationOrdered By: Vinh Lomeli on 11-01-2022 Estimated Creatinine Clearance Calc 70.71 ml/min [facility] Estimated GFR (MDRD) Amer 97 mL/min >60 [facility] Comment on above: GFR Calc Estimated GFR (MDRD) Non-Af Amer 80 mL/min >60 [facility] Comment on above: Non- GFR Calc Platelets bldOrdered By: Jasvir Lomeli on 11-01-2022 Platelets (Bld) [#/Vol] 151 10*3/uL 150-450 [facility] Serum or plasma albumin luciana urement (mass/volume)Ordered By: Vinh Lomeli on 11-01-2022 Albumin [Mass/Vol] 3.0 g/dL 3.2-5.0 [facility] Serum or plasma albumin/glob ulin mass ratioOrdered By: Vinh Lomeli on 11-01-2022 Albumin/Globulin [Mass ratio] 0.9 {ratio} 0.9-2.4 [facility] Serum or plasma calcium luciana urement (mass/volume)Ordered By: Vinh Lomeli on 11-01-2022 Calcium [Mass/Vol] 8.5 mg/dL 8.5-10.1 [facility] Serum or plasma creatinine m easurement (mass/volume)Ordered By: Vinh Lomeli on 11-01-2022 Creatinine [Mass/Vol] 1.01 mg/dL 0.70-1.30 [facility] Comment on above: The validity of the calculated GFR & GFRAA in patients over 70 years has not been determined. Clinical correlation is essential. Serum or plasma urea nitroge n measurement (mass/volume)Ordered By: Vinh Lomeli on 11-01-2022 Urea nitrogen [Mass/Vol] 5 mg/dL 7-18 [facility] Thin prep Papanicolaou smear with manual screeningOrdered By: Vinh Lomeli on 11-01-2022 Thin prep Papanicolaou smear with manual screening 434 U/L 15 [facility] Thin prep Papanicolaou smear with manual screening 9 -15 [facility] .Auto Diffon 10-15-2022 Basophil, Absolute 0.1 10 3/mcL Normal 0.0-0.2 [facility] ([place]) Comment on above: Performed By: #### L RADHA SARGENT MDW, CBC, GFR, CMP, TROPHS, ANEU #### [address] [address] Basophils/100 WBC (Bld) 0.8 % Normal 0.0-2.5 [facility] ([place]) Comment on above: Performed By: #### L RADHA SARGENT MDW, CBC, GFR, CMP, TROPHS, ANEU #### [address] [address] Eosinophil, Absolute 0.1 10 3/mcL Normal 0.0-0.4 [facility] ([place]) Comment on above: Performed By: #### L RADHA SARGENT MDW, CBC, GFR, CMP, TROPHS, ANEU #### [address] [address] Eosinophils/100 WBC (Bld) 1.7 % Normal 0.0-7.0 [facility] ([place]) Comment on above: Performed By: #### L RADHA SARGENT MDW, CBC, GFR, CMP, TROPHS, ANEU #### [address] [address] Lymphocyte, Absolute 1.6 10 3/mcL Normal 0.8-3.9 [facility] ([place]) Comment on above: Performed By: #### L RADHA SARGENT MDW, CBC, GFR, CMP, TROPHS, ANEU #### [address] [address] Lymphocytes/100 WBC (Bld) 18.8 % Normal 10.0-50.0 [facility] ([place]) Comment on above: Performed By: #### L RADHA SARGENT MDW, CBC, GFR, CMP, TROPHS, ANEU #### [address] [address] Monocyte, Absolute 0.8 10 3/mcL Normal 0.2-1.0 [facility] ([place]) Comment on above: Performed By: #### L RADHA SARGENT MDW, CBC, GFR, CMP, TROPHS, ANEU #### [address] [address] Monocytes/100 WBC (Bld) 9.4 % Normal 1.7-13.0 [facility] ([place]) Comment on above: Performed By: #### L RADHA SARGENT MDW, CBC, GFR, CMP, TROPHS, ANEU #### [address] [address] Neutrophils/100 WBC (Bld) 69.3 % Normal 37.0-80.0 [facility] ([place]) Comment on above: Performed By: #### L RADHA SARGENT MDW, CBC, GFR, CMP, TROPHS, ANEU #### [address] [address] .GFRon 10-15-2022 GFR 79 ml/min/1.73sqm Normal [facility] ([place]) Comment on above: Result Comment: GFR Population [...] MDW, CBC, GFR, CMP, TROPHS, ANEU #### [address] [address] GFR Non- 66 ml/min/1.73sqm Normal [facility] ([place]) Comment on above: Result Comment: GFR Population [...] MDW, CBC, GFR, CMP, TROPHS, ANEU #### [address] [address] .NEUABSon 10-15-2022 Neutrophil, Absolute 5.9 10 3/mcL Normal 2.9-6.2 [facility] ([place]) Comment on above: Performed By: #### L RADHA SARGENT MDW, CBC, GFR, CMP, TROPHS, ANEU #### [address] [address] A1Con 10-15-2022 HbA1c (Bld) [Mass fraction] 7.9 % High 4.3-6.4 [facility] ([place]) Comment on above: Performed By: #### L RADHA SARGENT MDW, CBC, GFR, CMP, TROPHS, ANEU #### [address] [address] CBCon 10-15-2022 Erythrocyte distribution width (RBC) [Ratio] 13.4 % Normal 11.5-14.5 [facility] ([place]) Comment on above: Performed By: #### L RADHA SARGENT MDW, CBC, GFR, CMP, TROPHS, ANEU #### [place] [address] Hematocrit (Bld) [Volume fraction] 42.6 % Normal 42.0-52.0 [facility] ([place]) Comment on above: Performed By: #### L RADHA SARGENT MDW, CBC, GFR, CMP, TROPHS, ANEU #### [place] [address] Hgb 14.0 G/dL Normal 14.0-18.0 [facility] ([place]) Comment on above: Performed By: #### L RADHA SARGENT MDW, CBC, GFR, CMP, TROPHS, ANEU #### [place] [address] MCH (RBC) [Entitic mass] 33.0 pg High 27.0-31.2 [facility] ([place]) Comment on above: Performed By: #### L RADHA SARGENT MDW, CBC, GFR, CMP, TROPHS, ANEU #### [place] [address] MCHC 33.0 G/dL Normal 31.8-35.4 [facility] ([place]) Comment on above: Performed By: #### L RADHA SARGENT MDW, CBC, GFR, CMP, TROPHS, ANEU #### [place] [address] MCV (RBC) [Entitic vol] 100.1 fL High 80.0-94.0 [facility] ([place]) Comment on above: Performed By: #### L RADHA SARGENT MDW, CBC, GFR, CMP, TROPHS, ANEU #### [place] [address] Platelet 184 10 3/mcL Normal 130-400 [facility] ([place]) Comment on above: Performed By: #### L RADHA SARGENT MDW, CBC, GFR, CMP, TROPHS, ANEU #### [address] [address] Platelet mean volume (Bld) [Entitic vol] 10.1 fL Normal 7.4-10.4 [facility] ([place]) Comment on above: Performed By: #### L RADHA SARGENT MDW, CBC, GFR, CMP, TROPHS, ANEU #### [place] [id number] RBC 4.26 10 6/mcL Normal 4.04-6.13 [facility] ([place]) Comment on above: Performed By: #### L RADHA SARGENT MDW, CBC, GFR, CMP, TROPHS, ANEU #### [place] [address] WBC 8.5 10 3/mcL Normal 4.6-10.8 [facility] ([place]) Comment on above: Performed By: #### L RADHA SARGENT MDW, CBC, GFR, CMP, TROPHS, ANEU #### [address] [address] CMPon 10-15-2022 Albumin Level 3.7 G/dL Normal 3.4-4.8 [facility] ([place]) Comment on above: Performed By: #### L RADHA SARGENT MDW, CBC, GFR, CMP, TROPHS, ANEU #### [place] [address] Albumin/Globulin [Mass ratio] 1.0 {ratio} Low 1.1-2.5 [facility] ([place]) Comment on above: Performed By: #### L RADHA SARGENT MDW, CBC, GFR, CMP, TROPHS, ANEU #### [place] [id number] ALP [Catalytic activity/Vol] 148 U/L High 40-135 [facility] ([place]) Comment on above: Performed By: #### L RADHA SARGENT MDW, CBC, GFR, CMP, TROPHS, ANEU #### [place] [id number] ALT [Catalytic activity/Vol] 49 U/L Normal 16-63 [facility] ([place]) Comment on above: Performed By: #### L RADHA SARGENT MDW, CBC, GFR, CMP, TROPHS, ANEU #### [address] [address] AST [Catalytic activity/Vol] 53 U/L High 10-40 [facility] ([place]) Comment on above: Performed By: #### L RADHA SARGENT MDW, CBC, GFR, CMP, TROPHS, ANEU #### [address] [address] Bili Total 0.4 mg/dL Normal 0.2-1.0 [facility] ([place]) Comment on above: Result Comment: Use of this assay is not recommended for patients undergoing treatment with eltrombopag due to the potential for falsely elevated results. Performed By: #### L RADHA SARGENT MDW, CBC, GFR, CMP, TROPHS, ANEU #### [place] [address] BUN/Creatinine Ratio 10 ratio Normal 7-27 [facility] ([place]) Comment on above: Performed By: #### L RADHA SARGENT MDW, CBC, GFR, CMP, TROPHS, ANEU #### [address] [address] Calcium [Mass/Vol] 9.3 mg/dL Normal 8.4-10.2 [facility] ([place]) Comment on above: Performed By: #### L RADHA SARGENT MDW, CBC, GFR, CMP, TROPHS, ANEU #### [address] [address] Chloride [Moles/Vol] 104 mmol/L Normal 98-107 [facility] ([place]) Comment on above: Performed By: #### RADHA COSTA MDW, CBC, GFR, CMP, TROPHS, ANEU #### [address] [address] CO2 [Moles/Vol] 23 mmol/L Normal 23-31 [facility] ([place]) Comment on above: Performed By: #### L RADHA SARGENT MDW, CBC, GFR, CMP, TROPHS, ANEU #### [address] [address] Creatinine [Mass/Vol] 1.14 mg/dL Normal 0.70-1.30 [facility] ([place]) Comment on above: Performed By: #### L RADHA SARGENT MDW, CBC, GFR, CMP, TROPHS, ANEU #### [address] [address] Electrolyte Balance 11.0 mEq/L Normal 4.0-15.0 [facility] ([place]) Comment on above: Performed By: #### L RADHA SARGENT MDW, CBC, GFR, CMP, TROPHS, ANEU #### [address] [address] Globulin 3.6 G/dL Normal [facility] ([place]) Comment on above: Performed By: #### L RADHA SARGENT MDW, CBC, GFR, CMP, TROPHS, ANEU #### [place] [phone] Glucose [Mass/Vol] 205 mg/dL High 80-115 [facility] ([place]) Comment on above: Performed By: #### L RADHA SARGENT MDW, CBC, GFR, CMP, TROPHS, ANEU #### [address] [address] Potassium [Moles/Vol] 5.0 mmol/L Normal 3.5-5.1 [facility] ([place]) Comment on above: Performed By: #### L RADHA SARGENT MDW, CBC, GFR, CMP, TROPHS, ANEU #### [address] [address] Sodium [Moles/Vol] 138 mmol/L Normal 136-145 [facility] ([place]) Comment on above: Performed By: #### L RADHA SARGENT MDW, CBC, GFR, CMP, TROPHS, ANEU #### [address] [address] Total Protein 7.3 G/dL Normal 6.4-8.2 [facility] ([place]) Comment on above: Performed By: #### L RADHA SARGENT MDW, CBC, GFR, CMP, TROPHS, ANEU #### [address] [address] Urea nitrogen [Mass/Vol] 11 mg/dL Normal 7-18 [facility] ([place]) Comment on above: Performed By: #### L RADHA SARGENT MDW, CBC, GFR, CMP, TROPHS, ANEU #### [address] [address] CPEPon 10-15-2022 C-Peptide 1.09 ng/mL Normal 0.81-3.85 [facility] ([place]) Comment on above: Order Comment: +/-28 days Performed By: #### L RADHA SARGENT MDW, CBC, GFR, CMP, TROPHS, ANEU #### [address] [address] LABORATORYOrdered By: Mehran Lee on 10-15-2022 Blood Glucose Frequency Other: Multiple times per day [facility] Work Phone: LIPIDon 10-15-2022 Cholesterol [Mass/Vol] 116 mg/dL Normal 0-200 [facility] ([place]) Comment on above: Result Comment: Chol esterol Reference Interval: Less than 200 Desirable 200-239 Borderline high risk 240 and above High risk Performed By: #### L RADHA SARGENT MDW, CBC, GFR, CMP, TROPHS, ANEU #### [address] [address] Cholesterol in HDL [Mass/Vol] 40 mg/dL Normal 40-60 [facility] ([place]) Comment on above: Performed By: #### L RADHA SARGENT MDW, CBC, GFR, CMP, TROPHS, ANEU #### [address] [address] Cholesterol in LDL [Mass/Vol] 59 mg/dL Normal 0-130 [facility] ([place]) Comment on above: Performed By: #### L RADHA SARGENT MDW, CBC, GFR, CMP, TROPHS, ANEU #### [address] [address] Triglyceride [Mass/Vol] 83 mg/dL Normal 0-150 [facility] ([place]) Comment on above: Result Comment: Trig lyceride Reference Interval: Less than 150 Normal 150-199 Borderline high risk 200-499 High risk 500 or higher Very high risk Performed By: #### L RADHA SARGENT MDW, CBC, GFR, CMP, TROPHS, ANEU #### [place] [address] VIDHon 10-15-2022 Vit. D 25-Hydroxy 37.4 ng/mL Normal [facility] ([place]) Comment on above: Result Comment: Inte rpretive Values Based on Total 25(OH) Vitamin D: Deficient <20 ng/mL Insufficient 20 - <30 ng/mL Sufficient 30-100 ng/mL Performed By: #### L RADHA SARGENT MDW, CBC, GFR, CMP, TROPHS, ANEU #### [place] [address] .Auto Diffon 10-05-2022 Basophil, Absolute 0.1 10 3/mcL Normal 0.0-0.2 [facility] ([place]) Comment on above: Performed By: #### L RADHA SARGENT MDW, CBC, GFR, CMP, TROPHS, ANEU #### [place] [address] Basophils/100 WBC (Bld) 1.2 % Normal 0.0-2.5 [facility] ([place]) Comment on above: Performed By: #### RADHA COSTA MDW, CBC, GFR, CMP, TROPHS, ANEU #### [place] [address] Eosinophil, Absolute 0.2 10 3/mcL Normal 0.0-0.4 [facility] ([place]) Comment on above: Performed By: #### L RADHA SARGENT MDW, CBC, GFR, CMP, TROPHS, ANEU #### [address] [address] Eosinophils/100 WBC (Bld) 2.5 % Normal 0.0-7.0 [facility] ([place]) Comment on above: Performed By: #### L RADHA SARGENT MDW, CBC, GFR, CMP, TROPHS, ANEU #### [address] [address] Lymphocyte, Absolute 1.4 10 3/mcL Normal 0.8-3.9 [facility] ([place]) Comment on above: Performed By: #### L ROSETTA, RADHA, W, CBC, GFR, CMP, TROPHS, ANEU #### [address] [address] Lymphocytes/100 WBC (Bld) 18.6 % Normal 10.0-50.0 [facility] ([place]) Comment on above: Performed By: #### L RADHA SARGENT MDW, CBC, GFR, CMP, TROPHS, ANEU #### [address] [address] Monocyte, Absolute 0.6 10 3/mcL Normal 0.2-1.0 [facility] ([place]) Comment on above: Performed By: #### L RADHA SARGENT MDW, CBC, GFR, CMP, TROPHS, ANEU #### [address] [address] Monocytes/100 WBC (Bld) 7.8 % Normal 1.7-13.0 [facility] ([place]) Comment on above: Performed By: #### L RADHA SARGENT MDW, CBC, GFR, CMP, TROPHS, ANEU #### [address] [address] Neutrophils/100 WBC (Bld) 69.9 % Normal 37.0-80.0 [facility] ([place]) Comment on above: Performed By: #### L RADHA SARGENT MDW, CBC, GFR, CMP, TROPHS, ANEU #### [address] [address] .GFRon 10-05-2022 GFR Non- 69 ml/min/1.73sqm Normal [facility] ([place]) Comment on above: Result Comment: GFR [...] MDW, CBC, GFR, CMP, TROPHS, ANEU #### [address] [address] GFR 84 ml/min/1.73sqm Normal [facility] ([place]) Comment on above: Result Comment: GFR Population [...] MDW, CBC, GFR, CMP, TROPHS, ANEU #### [address] [address] .MDWon 10-05-2022 Monocyte Distribution Width 16.07 Normal 0.00-20.00 [facility] ([place]) Comment on above: Result Comment: For ED adult patients suspected of sepsis, MDW<=20.0 does not rule out sepsis or risk of sepsis Performed By: #### L RADHA SARGENT, KEIKO, CBC, GFR, CMP, TROPHS, ANEU #### [address] [address] .NEUABSon 10-05-2022 Neutrophil, Absolute 5.4 10 3/mcL Normal 2.9-6.2 [facility] ([place]) Comment on above: Performed By: #### L RADHA SARGENT MDW, CBC, GFR, CMP, TROPHS, ANEU #### [address] [address] CBCon 10-05-2022 Erythrocyte distribution width (RBC) [Ratio] 13.6 % Normal 11.5-14.5 [facility] ([place]) Comment on above: Performed By: #### L RADHA SARGENT MDW, CBC, GFR, CMP, TROPHS, ANEU #### [place] [address] Hematocrit (Bld) [Volume fraction] 44.2 % Normal 42.0-52.0 [facility] ([place]) Comment on above: Performed By: #### L RADHA SARGENT MDW, CBC, GFR, CMP, TROPHS, ANEU #### [place] [id number] Hgb 14.9 G/dL Normal 14.0-18.0 [facility] ([place]) Comment on above: Performed By: #### L RADHA SARGENT MDW, CBC, GFR, CMP, TROPHS, ANEU #### [place] [id number] MCH (RBC) [Entitic mass] 33.5 pg High 27.0-31.2 [facility] ([place]) Comment on above: Performed By: #### L RADHA SARGENT MDW, CBC, GFR, CMP, TROPHS, ANEU #### [place] [id number] MCHC 33.6 G/dL Normal 31.8-35.4 [facility] ([place]) Comment on above: Performed By: #### L RADHA SARGENT MDW, CBC, GFR, CMP, TROPHS, ANEU #### [place] [id number] MCV (RBC) [Entitic vol] 99.6 fL High 80.0-94.0 [facility] ([place]) Comment on above: Performed By: #### L RADHA SARGENT MDW, CBC, GFR, CMP, TROPHS, ANEU #### [address] [address] Platelet 202 10 3/mcL Normal 130-400 [facility] ([place]) Comment on above: Performed By: #### L RADHA SARGENT MDW, CBC, GFR, CMP, TROPHS, ANEU #### [address] [address] Platelet mean volume (Bld) [Entitic vol] 9.2 fL Normal 7.4-10.4 [facility] ([place]) Comment on above: Performed By: #### L RADHA SARGENT MDW, CBC, GFR, CMP, TROPHS, ANEU #### [place] [id number] RBC 4.44 10 6/mcL Normal 4.04-6.13 [facility] ([place]) Comment on above: Performed By: #### L RADHA SARGENT MDW, CBC, GFR, CMP, TROPHS, ANEU #### [place] [id number] WBC 7.7 10 3/mcL Normal 4.6-10.8 [facility] ([place]) Comment on above: Performed By: #### L RADHA SARGENT MDW, CBC, GFR, CMP, TROPHS, ANEU #### [address] [address] CMPon 10-05-2022 Albumin Level 3.6 G/dL Normal 3.4-4.8 [facility] ([place]) Comment on above: Performed By: #### L RADHA SARGENT MDW, CBC, GFR, CMP, TROPHS, ANEU #### [place] [address] Albumin/Globulin [Mass ratio] 1.0 {ratio} Low 1.1-2.5 [facility] ([place]) Comment on above: Performed By: #### L RADHA SARGENT MDW, CBC, GFR, CMP, TROPHS, ANEU #### [place] [id number] ALP [Catalytic activity/Vol] 144 U/L High 40-135 [facility] ([place]) Comment on above: Performed By: #### L RADHA SARGENT MDW, CBC, GFR, CMP, TROPHS, ANEU #### [address] [address] ALT [Catalytic activity/Vol] 65 U/L High 16-63 [facility] ([place]) Comment on above: Performed By: #### L RADHA SARGENT MDW, CBC, GFR, CMP, TROPHS, ANEU #### [address] [address] AST [Catalytic activity/Vol] 59 U/L High 10-40 [facility] ([place]) Comment on above: Performed By: #### L RADHA SARGENT MDW, CBC, GFR, CMP, TROPHS, ANEU #### [address] [address] Bili Total 0.3 mg/dL Normal 0.2-1.0 [facility] ([place]) Comment on above: Result Comment: Use of this assay is not recommended for patients undergoing treatment with eltrombopag due to the potential for falsely elevated results. Performed By: #### RADHA COSTA MDW, CBC, GFR, CMP, TROPHS, ANEU #### [address] [address] BUN/Creatinine Ratio 7 ratio Normal 7-27 [facility] ([place]) Comment on above: Performed By: #### L RADHA SARGENT MDW, CBC, GFR, CMP, TROPHS, ANEU #### [address] [address] Calcium [Mass/Vol] 9.1 mg/dL Normal 8.4-10.2 [facility] ([place] Comment on above: Performed By: #### RADHA COSTA MDW, CBC, GFR, CMP, TROPHS, ANEU #### [address] [address] Chloride [Moles/Vol] 103 mmol/L Normal 98-107 [facility] ([place]) Comment on above: Performed By: #### RADHA COSTA MDW, CBC, GFR, CMP, TROPHS, ANEU #### [address] [address] CO2 [Moles/Vol] 24 mmol/L Normal 23-31 [facility] ([place]) Comment on above: Performed By: #### L RADHA SARGENT MDW, CBC, GFR, CMP, TROPHS, ANEU #### [address] [address] Creatinine [Mass/Vol] 1.09 mg/dL Normal 0.70-1.30 [facility] ([place]) Comment on above: Performed By: #### L RADHA SARGENT MDW, CBC, GFR, CMP, TROPHS, ANEU #### [address] [address] Electrolyte Balance 11.0 mEq/L Normal 4.0-15.0 [facility] ([place]) Comment on above: Performed By: #### L RADHA SARGENT MDW, CBC, GFR, CMP, TROPHS, ANEU #### [address] [address] Globulin 3.6 G/dL Normal [facility] ([place]) Comment on above: Performed By: #### L RADHA SARGENT MDW, CBC, GFR, CMP, TROPHS, ANEU #### [address] [address] Glucose [Mass/Vol] 257 mg/dL High 80-115 [facility] ([place] Comment on above: Performed By: #### L RADHA SARGENT MDW, CBC, GFR, CMP, TROPHS, ANEU #### [address] [address] Potassium [Moles/Vol] 4.3 mmol/L Normal 3.5-5.1 [facility] ([place]) Comment on above: Performed By: #### L RADHA SARGENT MDW, CBC, GFR, CMP, TROPHS, ANEU #### [address] [address] Sodium [Moles/Vol] 138 mmol/L Normal 136-145 [facility] ([place]) Comment on above: Performed By: #### L RADHA SARGENT MDW, CBC, GFR, CMP, TROPHS, ANEU #### [address] [address] Total Protein 7.2 G/dL Normal 6.4-8.2 [facility] ([place]) Comment on above: Performed By: #### L RADHA SARGENT MDW, CBC, GFR, CMP, TROPHS, ANEU #### [address] [address] Urea nitrogen [Mass/Vol] 8 mg/dL Normal 7-18 [facility] ([place]) Comment on above: Performed By: #### L RADHA SARGENT MDW, CBC, GFR, CMP, TROPHS, ANEU #### [address] [address] [address] ANGIO CHEST W+W/O CONTRAS T DISSECTIONon [...] 10/05/2022 3:45:22 PM Ordering Provider: [facility] ([place]) LABORATORYOrdered By: SYSTEM SYSTEM on 10-05-2022 Albumin [...] LIPon 10-05-2022 Lipase Level <10 Low 16-77 [facility] ([place]) Comment on above: Performed By: #### L ROSETTA, RADHA, MDW, CBC, GFR, CMP, TROPHS, ANEU #### [address] 10-05-2022 Troponin I High Sensitivity 30.7 ng/L Normal 0.0-76.2 [facility] ([place]) Comment on above: Performed By: #### L RADHA SARGENT MDW, CBC, GFR, CMP, TROPHS, ANEU #### [facility] [address] [place] [id number] XR UPPER GIon 09-22-2022 XR UPPER GI [...] 09/22/2022 3:40:06 PM Ordering Provider: ANDREAS White [facility] ([place]) LABORATORYOrdered By: Samantha panda on 09-17-2022 Glucose [Mass/Vol] 257 mg/dL High 82 - 115 mg/dL [facility] Work Phone: HbA1c (Bld) [Mass fraction] 8.5 % [facility] Work Phone: Lab Performed By Samantha HuberD [facility] Work Phone: Lab Performing Location [facility] Work Phone: Laboratory - Chemistry and C hemistry - challengeOrdered By: Ti Robbins on 08-15-2022 Glucose [Mass/Vol] 353 mg/dL High 82 - 115 mg/dL [facility] Work Phone: Glucose Glucometer (BldC) [M ass/Vol]Ordered By: Sinan Abarca on 07-21-2022 Glucose [Mass/Vol] 166 mg/dL 74-106 [facility] Comment on above: MANAGEMENT OF PATIEN T CARE PER NURSING PROTOCOL Absolute lymphocyte countOrd ered By: Sinan Abarca on 07-20-2022 Lymphocytes Auto (Unsp spec) [#/Vol] 1.83 10*3/uL 0.83-4.51 [facility] Basophil percentageOrdered B y: Sinan Abarca on 07-20-2022 Potassium [Moles/Vol] 3.2 mmol/L 3.5-5.1 [facility] Basophil percentage 0 SEEN /hpf 0-5 [facility] Basophils/100 WBC (Bld) 2.1 % 0-[address] [facility] Bilirubin [Mass/Vol] 0.20 mg/dL 0.20-1.00 [facility] Comment on above: For patients on eltr ombopag therapy, use of Dimension [place] TBIL is not recommended. Chloride [Moles/Vol] 97 mmol/L 98-107 [facility] Eosinophils/100 WBC (Bld) 4.2 % 0-5 [facility] Glucose [Mass/Vol] 381 mg/dL 74-106 [facility] Comment on above: Glucose result great er than or equal to 200 mg/dLsuggests DIABETES MELLITUS per A.D.A. criteria. Neutrophils (Bld) [#/Vol] 2.1 10*3/uL 2.0-7.7 [facility] Neutrophils/100 WBC (Bld) 43.9 % 47-70 [facility] Protein [Mass/Vol] 6.3 g/dL 6.4-8.2 [facility] Sodium [Moles/Vol] 144 mmol/L 136-145 [facility] WBC (Bld) [#/Vol] 4.7 10*3/uL 4.4-11.0 [facility] Bilirubin Test strip Ql (U)O rdered By: Sinan Abarca on 07-20-2022 Bilirubin Ql (U) Negative Negative [facility] Blood erythrocytes count (nu mber/volume)Ordered By: Sinan Abarca on 07-20-2022 RBC (Bld) [#/Vol] 3.63 10*6/uL 4.6-6.2 [facility] Blood hemoglobin measurement (mass/volume)Ordered By: Sinan Abarca on 07-20-2022 Hemoglobin (Bld) [Mass/Vol] 12.4 g/dL 13.0-16.5 [facility] Blood lymphocytes/100 leukoc ytesOrdered By: Sinan Abarca on 07-20-2022 Lymphocytes/100 WBC (Bld) 38.6 % 19-41 [facility] Blood monocytes/100 leukocyt esOrdered By: Sinan Abarca on 07-20-2022 Monocytes/100 WBC (Bld) 10.8 % 0-[address] [facility] Blood platelet mean volumeOr dered By: Sinan Abarca on 07-20-2022 Platelet mean volume (Bld) [Entitic vol] 10.0 fL 6.2-12.0 [facility] Determination of erythrocyte mean corpuscular volume (MCV)Ordered By: Sinan Abarca on 07-20-2022 MCV (RBC) [Entitic vol] 103.9 fL 80-[address] [facility] Hematocrit Auto (Bld) [Volum e fraction]Ordered By: Sinan Abarca on 07-20-2022 Hematocrit (Bld) [Volume fraction] 37.7 % 40-54 [facility] Ketones Test strip Ql (U)Ord ered By: Sinan Abarca on 07-20-2022 Ketones Ql (U) Negative Negative [facility] Laboratory - Chemistry and C hemistry - challengeOrdered By: Sinan Abarca on 07-20-2022 ALP [Catalytic activity/Vol] 120 U/L 45-117 [facility] ALT [Catalytic activity/Vol] 30 U/L 16-61 [facility] CO2 [Moles/Vol] 41.0 mmol/L 21.0-32.0 [facility] Globulin (S) [Mass/Vol] 3.2 g/dL 2.2-4.[address] [facility] Magnesium [Mass/Vol] 2.3 mg/dL 1.6-2.6 [facility] Urea nitrogen/Creatinine [Mass ratio] 7.5 mg/mg 10-20 [facility] Laboratory - Hematology and Cell countsOrdered By: Sinan Abarca on 07-20-2022 Erythrocyte distribution width (RBC) [Entitic vol] 56.5 fL 35.1-43.9 [facility] Erythrocyte distribution width (RBC) [Ratio] 14.6 % 11.6-14.6 [facility] Immature granulocytes/100 WBC (Bld) 0.400 % 0.0-0.9 [facility] Comment on above: IG% - Immature Granu locytes (promyelocytes, myelocytes and metamyelocytes) > 1% indicates that a LEFT SHIFT is Present. MCH (RBC) [Entitic mass] 34.2 pg 27.0-32.0 [facility] Nucleated RBC/100 WBC (Bld) [Ratio] 0 % 0-5 [facility] MCHC Auto (RBC) [Mass/Vol]Or dered By: Sinan Abarca on 07-20-2022 MCHC (RBC) [Mass/Vol] 32.9 g/dL 32-36 [facility] Mucus LM Ql (Urine sed)Order ed By: Sinan Abarca on 07-20-2022 Mucus Ql (Urine sed) 0 SEEN /hpf [facility] Nitrite Test strip Ql (U)Ord ered By: Sinan Abarca on 07-20-2022 Nitrite Ql (U) Negative Negative [facility] No Panel InformationOrdered By: Sinan Abarca on 07-20-2022 Estimated Creatinine Clearance Calc 74.19 ml/min [facility] Estimated GFR (MDRD) Amer 92 mL/min >60 [facility] Comment on above: GFR Calc Estimated GFR (MDRD) Non-Af Amer 76 mL/min >60 [facility] Comment on above: Non- GFR Calc Ethyl Alcohol Level 292.0 mg/dL [facility] Comment on above: Critical Result(s) C alled at: 22:26:30 07/20/2022 by: Vandana Valencia. Results read back by same.The serum:whole blood ethanol ratio is approximately 1.14and varies slightly with hematocrit. Medical Alcohol reference interval and critical value innon-tolerant individuals; 50 - 100 Impairment 100 Intoxication 100 - 250 Severe Poisoning 250 - 400 Deep/possible fatal coma Platelets bldOrdered By: Ramon Abarca on 07-20-2022 Platelets (Bld) [#/Vol] 241 10*3/uL 150-450 [facility] Protein Test strip Ql (U)Ord ered By: Sinan Abarca on 07-20-2022 Protein Ql (U) Negative Negative [facility] Serum or plasma acetone luciana urement (mass/volume)Ordered By: Sinan Abarca on 07-20-2022 Acetone [Mass/Vol] Negative NEG [facility] Serum or plasma albumin luciana urement (mass/volume)Ordered By: Sinan Abarca on 07-20-2022 Albumin [Mass/Vol] 3.1 g/dL 3.2-5.0 [facility] Serum or plasma albumin/glob ulin mass ratioOrdered By: Sinan Abarca on 07-20-2022 Albumin/Globulin [Mass ratio] 1.0 {ratio} 0.9-2.4 [facility] Serum or plasma calcium luciana urement (mass/volume)Ordered By: Sinan Abarca on 07-20-2022 Calcium [Mass/Vol] 8.3 mg/dL 8.5-10.1 [facility] Serum or plasma creatinine m easurement (mass/volume)Ordered By: Sinan Abarca on 07-20-2022 Creatinine [Mass/Vol] 1.06 mg/dL 0.70-1.30 [facility] Comment on above: The validity of the calculated GFR & GFRAA in patients over 70 years has not been determined. Clinical correlation is essential. Serum or plasma urea nitroge n measurement (mass/volume)Ordered By: Sinan Abarca on 07-20-2022 Urea nitrogen [Mass/Vol] 8 mg/dL 7-18 [facility] Squamous epithelial cells de tection in urine sediment by light microscopyOrdered By: Sinan Abarca on 07-20-2022 Epithelial cells.squamous LM Ql (Urine sed) 0 SEEN /hpf 0-5 [facility] Thin prep Papanicolaou smear with manual screeningOrdered By: Sinan Abarca on 07-20-2022 Thin prep Papanicolaou smear with manual screening 50 U/L 15-37 [facility] Thin prep Papanicolaou smear with manual screening 6 5-15 [facility] Urine blood detectionOrdered By: Sinan Abarca on 07-20-2022 RBC Ql (U) Negative Negative [facility] RBC Ql (U) 0 SEEN /hpf 0-5 [facility] Urine clarityOrdered By: Ramon Abarca on 07-20-2022 Clarity (U) Clear Clear [facility] Urine color determinationOrd ered By: Sinan Abarca on 07-20-2022 Color (U) Straw Yellow [facility] Urine glucose detectionOrder ed By: Sinan Abarca on 07-20-2022 Glucose Ql (U) 1000 mg/dl Normal [facility] Urine leukocyte esterase det ection by dipstickOrdered By: Sinan Abarca on 07-20-2022 Leukocyte esterase Test strip Ql (U) Negative Negative [facility] Urine pHOrdered By: Sinan gonzalez on 07-20-2022 pH (U) 8.0 [pH] 5.0 - 8.0 [facility] Urine sediment bacteria coun t by microscopy (number/high power field)Ordered By: Sinan Abarca on 07-20-2022 Bacteria LM.HPF (Urine sed) [#/Area] 0 /[HPF] None Seen [facility] Urine specific gravity measu rementOrdered By: Sinan Abarca on 07-20-2022 Specific gravity (U) [Rel density] 1.010 1.002-1.030 [facility] Urobilinogen Auto test strip Ql (U)Ordered By: Sinan Abarca on 07-20-2022 Urobilinogen Ql (U) Normal mg/dl Normal [facility] LABORATORYOrdered By: Cyndi Moya on 07-02-2022 Albumin [...] 07-02-2022 U Creatinine 23.2 mg/dL Low 39.0-259.0 [facility] ([place]) Comment on above: Performed By: #### M ALBR #### [id number] [place], [place] [address] U Microalb 6479 mcg/dL Normal [facility] ([place]) Comment on above: Performed By: #### M ALBR #### [id number] [place], [place] [address] U Ratio Alb/Cre 279 mcg/mg High 0-30 [facility] ([place]) Comment on above: Performed By: #### M ALBR #### [address] [address] RENINDon 06-22-2022 Direct Renin 9.5 pg/mL Normal 3.6-81.6 [facility] ([place]) Comment on above: Result Comment: A ra [...] Age >=41 years: 2.5-45.1 pg/mL Performed By: [place] [address] Lens Cementer: Jaya Jones III, M.D. CLIA#: [id number] Performed By: #### L RADHA SARGENT MDW, CBC, GFR, CMP, TROPHS, ANEU #### [place] [address] Patient Upright or Supine Upright Normal [facility] ([place]) Comment on above: Result Comment: Perf ormed By: [facility] [place] [address] Lens Cementer: Kaya Erickson III#: [id number] Performed By: #### L RADHA SARGENT MDW, CBC, GFR, CMP, TROPHS, ANEU #### [address] [address] PTHon 06-20-2022 PTH, Intact 135.8 pg/mL High 18.5-88.0 [facility] ([place]) Comment on above: Performed By: #### L RADHA SARGENT MDW, CBC, GFR, CMP, TROPHS, ANEU #### [address] [address] .Auto Diffon 06-19-2022 Basophil, Absolute 0.0 10 3/mcL Normal 0.0-0.2 [facility] ([place]) Comment on above: Performed By: #### L RADHA SARGENT MDW, CBC, GFR, CMP, TROPHS, ANEU #### [place] [address] Basophils/100 WBC (Bld) 0.3 % Normal 0.0-2.5 [facility] ([place]) Comment on above: Performed By: #### RADHA COSTA MDW, CBC, GFR, CMP, TROPHS, ANEU #### [address] [address] Eosinophil, Absolute 0.1 10 3/mcL Normal 0.0-0.4 [facility] ([place]) Comment on above: Performed By: #### L RADHA SARGENT MDW, CBC, GFR, CMP, TROPHS, ANEU #### [address] [address] Eosinophils/100 WBC (Bld) 0.8 % Normal 0.0-7.0 [facility] ([place]) Comment on above: Performed By: #### L RADHA SARGENT MDW, CBC, GFR, CMP, TROPHS, ANEU #### [address] [address] Lymphocyte, Absolute 1.2 10 3/mcL Normal 0.8-3.9 [facility] ([place]) Comment on above: Performed By: #### L RADHA SARGENT MDW, CBC, GFR, CMP, TROPHS, ANEU #### [address] [address] Lymphocytes/100 WBC (Bld) 17.6 % Normal 10.0-50.0 [facility] ([place]) Comment on above: Performed By: #### L RADHA SARGENT MDW, CBC, GFR, CMP, TROPHS, ANEU #### [address] [address] Monocyte, Absolute 0.7 10 3/mcL Normal 0.2-1.0 [facility] ([place]) Comment on above: Performed By: #### L RADHA SARGENT MDW, CBC, GFR, CMP, TROPHS, ANEU #### [address] [address] Monocytes/100 WBC (Bld) 10.1 % Normal 1.7-13.0 [facility] ([place]) Comment on above: Performed By: #### L RADHA SARGENT MDW, CBC, GFR, CMP, TROPHS, ANEU #### [address] [address] Neutrophils/100 WBC (Bld) 71.2 % Normal 37.0-80.0 [facility] ([place]) Comment on above: Performed By: #### L RADHA SARGENT MDW, CBC, GFR, CMP, TROPHS, ANEU #### [address] [address] .GFRon 06-19-2022 GFR 107 ml/min/1.73sqm Normal [facility] ([place]) Comment on above: Result Comment: GFR Population [...] MDW, CBC, GFR, CMP, TROPHS, ANEU #### [address] [address] GFR Non- 89 ml/min/1.73sqm Normal [facility] ([place]) Comment on above: Result Comment: GFR Population [...] MDW, CBC, GFR, CMP, TROPHS, ANEU #### [address] [address] .NEUABSon 06-19-2022 Neutrophil, Absolute 5.0 10 3/mcL Normal 2.9-6.2 [facility] ([place]) Comment on above: Performed By: #### L RADHA SARGENT MDW, CBC, GFR, CMP, TROPHS, ANEU #### [address] [address] A1Con 06-19-2022 HbA1c (Bld) [Mass fraction] 9.6 % High 4.3-6.4 [facility] ([place]) Comment on above: Performed By: #### L RADHA SARGENT MDW, CBC, GFR, CMP, TROPHS, ANEU #### [address] [address] CBCon 06-19-2022 Erythrocyte distribution width (RBC) [Ratio] 15.2 % High 11.5-14.5 [facility] ([place]) Comment on above: Performed By: #### L RADHA SARGENT MDW, CBC, GFR, CMP, TROPHS, ANEU #### [place] [address] Hematocrit (Bld) [Volume fraction] 40.7 % Low 42.0-52.0 [facility] ([place]) Comment on above: Performed By: #### L ROSETTA, KEIKO GARCIA, CBC, GFR, CMP, TROPHS, ANEU #### [place] [address] Hgb 13.7 G/dL Low 14.0-18.0 [facility] ([place]) Comment on above: Performed By: #### L RADHA SARGENT MDW, CBC, GFR, CMP, TROPHS, ANEU #### [place] [address] MCH (RBC) [Entitic mass] 34.1 pg High 27.0-31.2 [facility] ([place]) Comment on above: Performed By: #### L RADHA SARGENT MDW, CBC, GFR, CMP, TROPHS, ANEU #### [place] [address] MCHC 33.7 G/dL Normal 31.8-35.4 [facility] ([place]) Comment on above: Performed By: #### L RADHA SARGENT MDW, CBC, GFR, CMP, TROPHS, ANEU #### [place] [address] MCV (RBC) [Entitic vol] 101.1 fL High 80.0-94.0 [facility] ([place]) Comment on above: Performed By: #### L RADHA SARGENT MDW, CBC, GFR, CMP, TROPHS, ANEU #### [place] [address] Platelet 279 10 3/mcL Normal 130-400 [facility] ([place]) Comment on above: Performed By: #### L ROSETTA, RADHA, W, CBC, GFR, CMP, TROPHS, ANEU #### [place] [address] Platelet mean volume (Bld) [Entitic vol] 9.2 fL Normal 7.4-10.4 [facility] ([place]) Comment on above: Performed By: #### L RADHA SARGENT MDW, CBC, GFR, CMP, TROPHS, ANEU #### [place] [address] RBC 4.03 10 6/mcL Low 4.04-6.13 [facility] ([place]) Comment on above: Performed By: #### L RADHA SARGENT MDW, CBC, GFR, CMP, TROPHS, ANEU #### [place] [address] WBC 7.1 10 3/mcL Normal 4.6-10.8 [facility] ([place]) Comment on above: Performed By: #### L RADHA SARGENT MDW, CBC, GFR, CMP, TROPHS, ANEU #### [place] [address] CMPon 06-19-2022 Albumin Level 3.5 G/dL Normal 3.5-5.0 [facility] ([place]) Comment on above: Performed By: #### L RADHA SARGENT MDW, CBC, GFR, CMP, TROPHS, ANEU #### [place] [address] Albumin/Globulin [Mass ratio] 1.0 {ratio} Low 1.1-2.5 [facility] ([place]) Comment on above: Performed By: #### L RADHA SARGENT MDW, CBC, GFR, CMP, TROPHS, ANEU #### [place] [address] ALP [Catalytic activity/Vol] 174 U/L High 40-135 [facility] ([place]) Comment on above: Performed By: #### RADHA COSTA MDW, CBC, GFR, CMP, TROPHS, ANEU #### [place] [id number] ALT [Catalytic activity/Vol] 44 U/L Normal 16-63 [facility] ([place]) Comment on above: Performed By: #### L RADHA SARGENT MDW, CBC, GFR, CMP, TROPHS, ANEU #### [address] [address] AST [Catalytic activity/Vol] 54 U/L High 10-40 [facility] ([place]) Comment on above: Performed By: #### L RADHA SARGENT MDW, CBC, GFR, CMP, TROPHS, ANEU #### [address] [address] Bili Total 0.4 mg/dL Normal 0.2-1.0 [facility] ([place]) Comment on above: Result Comment: Use of this assay is not recommended for patients undergoing treatment with eltrombopag due to the potential for falsely elevated results. Performed By: #### L RADHA SARGENT MDW, CBC, GFR, CMP, TROPHS, ANEU #### [address] [address] BUN/Creatinine Ratio 6 ratio Low 7-27 [facility] ([place]) Comment on above: Performed By: #### L RADHA SARGENT MDW, CBC, GFR, CMP, TROPHS, ANEU #### [address] [address] Calcium [Mass/Vol] 9.3 mg/dL Normal 8.4-10.2 [facility] ([place]) Comment on above: Performed By: #### L RADHA SARGENT MDW, CBC, GFR, CMP, TROPHS, ANEU #### [address] [address] Chloride [Moles/Vol] 98 mmol/L Normal 98-107 [facility] ([place]) Comment on above: Performed By: #### L RADHA SARGENT MDW, CBC, GFR, CMP, TROPHS, ANEU #### [address] [address] CO2 [Moles/Vol] 30 mmol/L High 22-29 [facility] ([place]) Comment on above: Performed By: #### L RADHA SARGENT MDW, CBC, GFR, CMP, TROPHS, ANEU #### [address] [address] Creatinine [Mass/Vol] 0.88 mg/dL Normal 0.70-1.30 [facility] ([place]) Comment on above: Performed By: #### L RADHA SARGENT MDW, CBC, GFR, CMP, TROPHS, ANEU #### [address] [address] Electrolyte Balance 3.0 mEq/L Low 4.0-15.0 [facility] ([place]) Comment on above: Performed By: #### L RADHA SARGENT MDW, CBC, GFR, CMP, TROPHS, ANEU #### [address] [address] Globulin 3.5 G/dL Normal [facility] ([place]) Comment on above: Performed By: #### L RADHA SARGENT MDW, CBC, GFR, CMP, TROPHS, ANEU #### [address] [address] Glucose [Mass/Vol] 217 mg/dL High 70-105 [facility] ([place]) Comment on above: Performed By: #### L RADHA SARGENT MDW, CBC, GFR, CMP, TROPHS, ANEU #### [address] [address] Potassium [Moles/Vol] 4.5 mmol/L Normal 3.5-5.1 [facility] ([place]) Comment on above: Performed By: #### L RADHA SARGENT MDW, CBC, GFR, CMP, TROPHS, ANEU #### [address] [address] Sodium [Moles/Vol] 131 mmol/L Low 136-145 [facility] ([place]) Comment on above: Performed By: #### L RADHA SARGENT MDW, CBC, GFR, CMP, TROPHS, ANEU #### [address] [address] Total Protein 7.0 G/dL Normal 6.4-8.2 [facility] ([place]) Comment on above: Performed By: #### L RADHA SARGENT MDW, CBC, GFR, CMP, TROPHS, ANEU #### [address] [address] Urea nitrogen [Mass/Vol] 5 mg/dL Low 7-18 [facility] ([place]) Comment on above: Performed By: #### L RADHA SARGENT MDW, CBC, GFR, CMP, TROPHS, ANEU #### [address] [address] LABORATORYOrdered By: SYSTEM SYSTEM on 06-19-2022 25-hydroxyvitamin [...] 06-19-2022 Cholesterol [Mass/Vol] 172 mg/dL Normal 0-200 [facility] ([place]) Comment on above: Result Comment: Chol esterol Reference Interval: Less than 200 Desirable 200-239 Borderline high risk 240 and above High risk Performed By: #### L AC, RADHA, MDW, CBC, GFR, CMP, TROPHS, ANEU #### [address] [address] Cholesterol in HDL [Mass/Vol] 47 mg/dL Normal 40-60 [facility] ([place]) Comment on above: Performed By: #### L RADHA SARGENT MDW, CBC, GFR, CMP, TROPHS, ANEU #### [place] [id number] Cholesterol in LDL [Mass/Vol] 92 mg/dL Normal 0-130 [facility] ([place]) Comment on above: Performed By: #### L RADHA SARGENT MDW, CBC, GFR, CMP, TROPHS, ANEU #### [place] [address] Triglyceride [Mass/Vol] 164 mg/dL High 0-150 [facility] ([place]) Comment on above: Result Comment: Trig lyceride Reference Interval: Less than 150 Normal 150-199 Borderline high risk 200-499 High risk 500 or higher Very high risk Performed By: #### L RADHA SARGENT MDW, CBC, GFR, CMP, TROPHS, ANEU #### [place] [address] PSAon 06-19-2022 Prostate Specific Antigen 0.38 ng/mL Normal 0.00-4.00 [facility] ([place]) Comment on above: Performed By: #### L RADHA SARGENT MDW, CBC, GFR, CMP, TROPHS, ANEU #### [place] [address] VIDHon 06-19-2022 Vit. D 25-Hydroxy <5.0 Normal [facility] ([place]) Comment on above: Result Comment: Inte rpretive Values Based on Total 25(OH) Vitamin D: Deficient <20 ng/mL Insufficient 20 - <30 ng/mL Sufficient 30-100 ng/mL Performed By: #### L RADHA SARGENT MDW, CBC, GFR, CMP, TROPHS, ANEU #### [place] [address] CT HEAD OR BRAIN W/O CONTRAS Ton [...] Sign Date: 05/13/2022 7:45:15 PM Ordering Provider: [facility]) CT SPINE CERVICAL W/O CONTRA STon 05-13-2022 [...] Sign Date: 05/13/2022 7:46:30 PM Ordering Provider: [facility]) XR SPINE LUMBOSACRAL MINIMUM 4 VIEWSon 05-13-2022 [...] Date: 05/13/2022 8:46:22 PM Ordering Provider: MERRICK SINGH [facility]) Glucose Glucometer (BldC) [M ass/Vol]Ordered By: Dr. Dutton on 03-24-2022 Glucose [Mass/Vol] 223 mg/dL 74-106 [facility] Comment on above: MANAGEMENT OF PATIEN T CARE PER NURSING PROTOCOL Basophil percentageOrdered B y: Dr. Dutton on 03-23-2022 Chloride [Moles/Vol] 107 mmol/L 98-107 [facility] Glucose [Mass/Vol] 149 mg/dL 74-106 [facility] Comment on above: Fasting Glucose resu lt greater than or equal to 126 mg/dL suggests DIABETES MELLITUS per A.D.A. criteria. Potassium [Moles/Vol] 4.9 mmol/L 3.5-5.1 [facility] Sodium [Moles/Vol] 140 mmol/L 136-145 [facility] Laboratory - Chemistry and C hemistry - challengeOrdered By: Dr. Dutton on 03-23-2022 CO2 [Moles/Vol] 30.0 mmol/L 21.0-32.0 [facility] Magnesium [Mass/Vol] 1.8 mg/dL 1.6-2.6 [facility] Urea nitrogen/Creatinine [Mass ratio] 8.1 mg/mg 10-20 [facility] No Panel InformationOrdered By: Dr. Dutton on 03-23-2022 Estimated Creatinine Clearance Calc 80.56 ml/min [facility] Estimated GFR (MDRD) Amer 116 mL/min >60 [facility] Comment on above: GFR Calc Estimated GFR (MDRD) Non-Af Amer 96 mL/min >60 [facility] Comment on above: Non- GFR Calc Serum or plasma calcium luciana urement (mass/volume)Ordered By: Dr. Dutton on 03-23-2022 Calcium [Mass/Vol] 7.7 mg/dL 8.5-10.1 [facility] Serum or plasma creatinine m easurement (mass/volume)Ordered By: Dr. Dutton on 03-23-2022 Creatinine [Mass/Vol] 0.87 mg/dL 0.70-1.30 [facility] Comment on above: The validity of the calculated GFR & GFRAA in patients over 70 years has not been determined. Clinical correlation is essential. Serum or plasma urea nitroge n measurement (mass/volume)Ordered By: Dr. Dutton on 03-23-2022 Urea nitrogen [Mass/Vol] 7 mg/dL 7-18 [facility] Thin prep Papanicolaou smear with manual screeningOrdered By: Dr. Dutton on 03-23-2022 Thin prep Papanicolaou smear with manual screening 3 5-15 [facility] Basophil percentageOrdered B y: Dr. Aguayo on 03-22-2022 Bilirubin [Mass/Vol] 1.10 mg/dL 0.20-1.00 [facility] Comment on above: For patients on eltr ombopag therapy, use of Dimension [place] TBIL is not recommended. Protein [Mass/Vol] 4.4 g/dL 6.4-8.2 [facility] Laboratory - Chemistry and C hemistry - challengeOrdered By: Dr. Aguayo on 03-22-2022 ALP [Catalytic activity/Vol] 104 U/L 45-117 [facility] ALT [Catalytic activity/Vol] 76 U/L 16-61 [facility] Globulin (S) [Mass/Vol] 2.4 g/dL 2.2-4.[address] [facility] Serum or plasma albumin luciana urement (mass/volume)Ordered By: Dr. Aguayo on 03-22-2022 Albumin [Mass/Vol] 2.0 g/dL 3.2-5.0 [facility] Serum or plasma albumin/glob ulin mass ratioOrdered By: Dr. Aguayo on 03-22-2022 Albumin/Globulin [Mass ratio] 0.8 {ratio} 0.9-2.4 [facility] Thin prep Papanicolaou smear with manual screeningOrdered By: Dr. Aguayo on 03-22-2022 Thin prep Papanicolaou smear with manual screening 254 U/L 15-37 [facility] Whole blood hemoglobin A1c/t otal hemoglobin ratio (mass fraction)Ordered By: Dr. Aguayo on 03-22-2022 HbA1c (Bld) [Mass fraction] 8.3 % 3.8-5.6 [facility] Comment on above: Normal < 5.7 % Predi abetic 5.7 - 6.4 % Diabetic >or= 6.5 % Please note range changes. Absolute lymphocyte countOrd ered By: Dr. Lomeli on 03-21-2022 Lymphocytes Auto (Unsp spec) [#/Vol] 0.60 10*3/uL 0.83-4.51 [facility] Basophil percentageOrdered B y: Dr. Aguayo on 03-21-2022 Basophil percentage 3.6 mg/dL 2.5-4.9 [facility] Bilirubin [Mass/Vol] 1.40 mg/dL 0.20-1.00 [facility] Comment on above: For patients on eltr ombopag therapy, use of Dimension [place] TBIL is not recommended. Protein [Mass/Vol] 5.8 g/dL 6.4-8.2 [facility] Basophil percentageOrdered B y: Dr. Lomeli on 03-21-2022 Basophils/100 WBC (Bld) 0.8 % 0-[address] [facility] Chloride [Moles/Vol] 98 mmol/L 98-107 [facility] Eosinophils/100 WBC (Bld) 5.6 % 0-5 [facility] Glucose [Mass/Vol] 294 mg/dL 74-106 [facility] Comment on above: Glucose result great er than or equal to 200 mg/dLsuggests DIABETES MELLITUS per A.D.A. criteria. Neutrophils (Bld) [#/Vol] 4.5 10*3/uL 2.0-7.7 [facility] Neutrophils/100 WBC (Bld) 75.0 % 47-70 [facility] Potassium [Moles/Vol] 3.2 mmol/L 3.5-5.1 [facility] Sodium [Moles/Vol] 142 mmol/L 136-145 [facility] WBC (Bld) [#/Vol] 6.0 10*3/uL 4.4-11.0 [facility] Blood erythrocytes count (nu mber/volume)Ordered By: Dr. Lomeli on 03-21-2022 RBC (Bld) [#/Vol] 3.88 10*6/uL 4.6-6.2 [facility] Blood hemoglobin measurement (mass/volume)Ordered By: Dr. Lomeli on 03-21-2022 Hemoglobin (Bld) [Mass/Vol] 13.2 g/dL 13.0-16.5 [facility] Blood lymphocytes/100 leukoc ytesOrdered By: Dr. Lomeli on 03-21-2022 Lymphocytes/100 WBC (Bld) 10.0 % 19-41 [facility] Blood manual differential co mment interpretation (narrative result)Ordered By: Dr. Lomeli on 03-21-2022 Manual differential comment Jose Carlos (Bld) [Interp] SCANNED [facility] Comment on above: LYMPHOPENIA NOTED Blood monocytes/100 leukocyt esOrdered By: Dr. Lomeli on 03-21-2022 Monocytes/100 WBC (Bld) 8.1 % 0-[address] [facility] Blood platelet mean volumeOr dered By: Dr. Lomeli on 03-21-2022 Platelet mean volume (Bld) [Entitic vol] 11.1 fL 6.2-12.0 [facility] Determination of erythrocyte mean corpuscular volume (MCV)Ordered By: Dr. Lomeli on 03-21-2022 MCV (RBC) [Entitic vol] 98.7 fL 80-[address] [facility] Direct bilirubinOrdered By: Dr. Aguayo on 03-21-2022 Bilirubin.direct [Mass/Vol] 0.55 mg/dL 0.00-0.30 [facility] Glucose Glucometer (dC) [M ass/Vol]Ordered By: Dr. Alvarado on 03-21-2022 Glucose [Mass/Vol] 337 mg/dL 74-106 [facility] Comment on above: MANAGEMENT OF PATIEN T CARE PER NURSING PROTOCOL Hematocrit Auto (Bld) [Volum e fraction]Ordered By: Dr. Lomeli on 03-21-2022 Hematocrit (Bld) [Volume fraction] 38.3 % 40-54 [facility] Laboratory - Chemistry and C hemistry - challengeOrdered By: Dr. Aguayo on 03-21-2022 ALP [Catalytic activity/Vol] 144 U/L 45-117 [facility] ALT [Catalytic activity/Vol] 108 U/L 16-61 [facility] Globulin (S) [Mass/Vol] 3.0 g/dL 2.2-4.2 [facility] Magnesium [Mass/Vol] 1.2 mg/dL 1.6-2.6 [facility] Laboratory - Chemistry and C hemistry - challengeOrdered By: Dr. Lomeli on 03-21-2022 CO2 [Moles/Vol] 32.0 mmol/L 21.0-32.0 [facility] Urea nitrogen/Creatinine [Mass ratio] 3.6 mg/mg 10-20 [facility] Laboratory - Drug toxicology Ordered By: Dr. Lomeli on 03-21-2022 Amphetamines Ql (U) Negative <1000 ng/mL [facility] Benzodiazepines Ql (U) Negative < 200 ng/mL [facility] Cannabinoids Screen Ql (U) Negative < 50 ng/mL [facility] Cocaine Ql (U) Negative < 300 ng/mL [facility] Opiates Ql (U) Negative < 300 ng/mL [facility] Laboratory - Hematology and Cell countsOrdered By: Dr. Lomeli on 03-21-2022 Erythrocyte distribution width (RBC) [Entitic vol] 49.6 fL 35.1-43.9 [facility] Erythrocyte distribution width (RBC) [Ratio] 13.6 % 11.6-14.6 [facility] Immature granulocytes/100 WBC (Bld) 0.500 % 0.0-0.9 [facility] Comment on above: IG% - Immature Granu locytes (promyelocytes, myelocytes and metamyelocytes) > 1% indicates that a LEFT SHIFT is Present. MCH (RBC) [Entitic mass] 34.0 pg 27.0-32.0 [facility] Nucleated RBC/100 WBC (Bld) [Ratio] 0 % 0-5 [facility] MCHC Auto (RBC) [Mass/Vol]Or dered By: Dr. Lomeli on 03-21-2022 MCHC (RBC) [Mass/Vol] 34.5 g/dL 32-36 [facility] No Panel InformationOrdered By: Dr. Lomeli on 03-21-2022 MDMA (Ecstasy) Screen Negative < 500 ng/mL [facility] Urine Barbiturates Screen Negative < 200 ng/mL [facility] Urine Drug Screen Comment [facility] Comment on above: CONFIRMATORY TESTING FOR [...] Methadone Screen Negative < 300 ng/mL [facility] Estimated Creatinine Clearance Calc 68.96 ml/min [facility] Estimated GFR (MDRD) Amer 87 mL/min >60 [facility] Comment on above: GFR Calc Estimated GFR (MDRD) Non-Af Amer 72 mL/min >60 [facility] Comment on above: Non- GFR Calc Ethyl Alcohol Level < 3.0 mg/dL [facility] Comment on above: The serum:whole bloo d ethanol ratio is approximately 1.14and varies slightly with hematocrit. Medical Alcohol reference interval and critical value innon-tolerant individuals; 50 - 100 Impairment 100 Intoxication 100 - 250 Severe Poisoning 250 - 400 Deep/possible fatal coma Platelets bldOrdered By: Dr. Lomeli on 03-21-2022 Platelets (Bld) [#/Vol] 144 10*3/uL 150-450 [facility] Serum or plasma albumin luciana urement (mass/volume)Ordered By: Dr. Aguayo on 03-21-2022 Albumin [Mass/Vol] 2.8 g/dL 3.2-5.0 [facility] Serum or plasma calcium luciana urement (mass/volume)Ordered By: Dr. Lomeli on 03-21-2022 Calcium [Mass/Vol] 8.3 mg/dL 8.5-10.1 [facility] Serum or plasma creatinine m easurement (mass/volume)Ordered By: Dr. Lomeli on 03-21-2022 Creatinine [Mass/Vol] 1.11 mg/dL 0.70-1.30 [facility] Comment on above: The validity of the calculated GFR & GFRAA in patients over 70 years has not been determined. Clinical correlation is essential. Serum or plasma urea nitroge n measurement (mass/volume)Ordered By: Dr. Lomeli on 03-21-2022 Urea nitrogen [Mass/Vol] 4 mg/dL 7-18 [facility] Thin prep Papanicolaou smear with manual screeningOrdered By: Dr. Aguayo on 03-21-2022 Thin prep Papanicolaou smear with manual screening 334 U/L 15- [facility] Thin prep Papanicolaou smear with manual screeningOrdered By: Dr. Lomeli on 03-21-2022 Thin prep Papanicolaou smear with manual screening 12 5-15 [facility] Urine phencyclidine (PCP) de tectionOrdered By: Dr. Lomeli on 03-21-2022 Phencyclidine Ql (U) Negative < 25 ng/mL [facility] Basophil percentageOrdered B y: Dr. Dutton on 02-04-2022 Glucose [Mass/Vol] 516 mg/dL 74-106 [facility] Comment on above: Critical Result(s) C alled at: 11:23:39 02/04/2022 by: Estefany Rosenberg. Results read back by same.Glucose result greater than or equal to 200 mg/dLsuggests DIABETES MELLITUS per A.D.A. criteria. Glucose Glucometer (BldC) [M ass/Vol]Ordered By: Dr. Dutton on 02-04-2022 Glucose [Mass/Vol] 494 mg/dL 74-106 [facility] Comment on above: Repeat TestMANAGEMEN T OF PATIENT CARE PER NURSING PROTOCOL Absolute lymphocyte countOrd ered By: Dr. Lomeli on 02-01-2022 Lymphocytes Auto (Unsp spec) [#/Vol] 1.73 10*3/uL 0.83-4.51 [facility] Basophil percentageOrdered B y: Dr. Aguayo on 02-01-2022 Basophil percentage 2.6 mg/dL 2.5-4.9 [facility] Bilirubin [Mass/Vol] 0.30 mg/dL 0.20-1.00 [facility] Comment on above: For patients on eltr ombopag therapy, use of Dimension [place] TBIL is not recommended. Protein [Mass/Vol] 6.2 g/dL 6.4-8.2 [facility] Basophil percentageOrdered B y: Dr. Lomeli on 02-01-2022 Chloride [Moles/Vol] 107 mmol/L 98-107 [facility] Potassium [Moles/Vol] 3.1 mmol/L 3.5-5.1 [facility] Sodium [Moles/Vol] 144 mmol/L 136-145 [facility] Basophils/100 WBC (Bld) 1.6 % 0-1 [facility] Eosinophils/100 WBC (Bld) 0.4 % 0-5 [facility] Neutrophils (Bld) [#/Vol] 2.9 10*3/uL 2.0-7.7 [facility] Neutrophils/100 WBC (Bld) 55.5 % 47-70 [facility] WBC (Bld) [#/Vol] 5.2 10*3/uL 4.4-11.0 [facility] Basophil percentageon 2021 Glucose [Mass/Vol] 256 mg/dL 74-106 [facility] Work Phone: Comment on above: Glucose result great er than or equal to 200 mg/dLsuggests DIABETES MELLITUS per A.D.A. criteria. Blood erythrocytes count (nu mber/volume)Ordered By: Dr. Lomeli on 02-01-2022 RBC (Bld) [#/Vol] 3.96 10*6/uL 4.6-6.2 [facility] Blood hemoglobin measurement (mass/volume)Ordered By: Dr. Lomeli on 02-01-2022 Hemoglobin (Bld) [Mass/Vol] 14.2 g/dL 13.0-16.5 [facility] Blood lymphocytes/100 leukoc ytesOrdered By: Dr. Lomeli on 02-01-2022 Lymphocytes/100 WBC (Bld) 33.6 % 19-41 [facility] Blood monocytes/100 leukocyt esOrdered By: Dr. Lomeli on 02-01-2022 Monocytes/100 WBC (Bld) 8.5 % 0-[address] [facility] Blood platelet mean volumeOr dered By: Dr. Lomeli on 02-01-2022 Platelet mean volume (Bld) [Entitic vol] 11.6 fL 6.2-12.0 [facility] Determination of erythrocyte mean corpuscular volume (MCV)Ordered By: Dr. Lomeli on 02-01-2022 MCV (RBC) [Entitic vol] 106.3 fL 80-[address] [facility] Direct bilirubinOrdered By: Dr. Aguayo on 02-01-2022 Bilirubin.direct [Mass/Vol] 0.20 mg/dL 0.00-0.30 [facility] Hematocrit Auto (Bld) [Volum e fraction]Ordered By: Dr. Lomeli on 02-01-2022 Hematocrit (Bld) [Volume fraction] 42.1 % 40-54 [facility] Laboratory - Chemistry and C hemistry - challengeOrdered By: Dr. Aguayo on 02-01-2022 ALP [Catalytic activity/Vol] 164 U/L 45-117 [facility] ALT [Catalytic activity/Vol] 109 U/L 16-61 [facility] Globulin (S) [Mass/Vol] 3.2 g/dL 2.2-4.2 [facility] Magnesium [Mass/Vol] 2.0 mg/dL 1.6-2.6 [facility] Laboratory - Chemistry and C hemistry - challengeOrdered By: Dr. Lomeli on 02-01-2022 CO2 [Moles/Vol] 29.0 mmol/L 21.0-32.0 [facility] Lipase [Catalytic activity/Vol] 21 U/L 73-393 [facility] Urea nitrogen/Creatinine [Mass ratio] 4.6 mg/mg 10-20 [facility] Laboratory - Hematology and Cell countsOrdered By: Dr. Lomeli on 02-01-2022 Erythrocyte distribution width (RBC) [Entitic vol] 52.8 fL 35.1-43.9 [facility] Erythrocyte distribution width (RBC) [Ratio] 13.3 % 11.6-14.6 [facility] Immature granulocytes/100 WBC (Bld) 0.400 % 0.0-0.9 [facility] Comment on above: IG% - Immature Granu locytes (promyelocytes, myelocytes and metamyelocytes) > 1% indicates that a LEFT SHIFT is Present. MCH (RBC) [Entitic mass] 35.9 pg 27.0-32.0 [facility] Nucleated RBC/100 WBC (Bld) [Ratio] 0 % 0-5 [facility] MCHC Auto (RBC) [Mass/Vol]Or dered By: Dr. Lomeli on 02-01-2022 MCHC (RBC) [Mass/Vol] 33.7 g/dL 32-36 [facility] No Panel InformationOrdered By: Dr. Lomeli on 02-01-2022 Troponin I High Sensitivity 22 pg/mL 3.0-78.0 [facility] Comment on above: Please Note: New Kelly t Units and Gender Specific Reference Ranges. For more information see Policy Stat Procedure [place] High Sensitivity Troponin (TNIH) and attachments. Estimated Creatinine Clearance Calc 60.20 ml/min [facility] Estimated GFR (MDRD) Amer 72 mL/min >60 [facility] Comment on above: GFR Calc Estimated GFR (MDRD) Non-Af Amer 59 mL/min >60 [facility] Comment on above: Non- GFR Calc No Panel Informationon 02-01 Troponin I High Sensitivity 22 pg/mL 3.0-78.0 [facility] Work Phone: Comment on above: Please Note: New Kelly t Units and Gender Specific Reference Ranges. For more information see Policy Stat Procedure [place] High Sensitivity Troponin (TNIH) and attachments. Platelets bldOrdered By: Dr. Lomeli on 02-01-2022 Platelets (Bld) [#/Vol] 206 10*3/uL 150-450 [facility] Serum or plasma albumin luciana urement (mass/volume)Ordered By: Dr. Aguayo on 02-01-2022 Albumin [Mass/Vol] 3.0 g/dL 3.2-5.0 [facility] Serum or plasma calcium luciana urement (mass/volume)Ordered By: Dr. Lomeli on 02-01-2022 Calcium [Mass/Vol] 8.3 mg/dL 8.5-10.1 [facility] Serum or plasma creatinine m easurement (mass/volume)Ordered By: Dr. Lomeli on 02-01-2022 Creatinine [Mass/Vol] 1.31 mg/dL 0.70-1.30 [facility] Comment on above: The validity of the calculated GFR & GFRAA in patients over 70 years has not been determined. Clinical correlation is essential. Serum or plasma urea nitroge n measurement (mass/volume)Ordered By: Dr. Lomeli on 02-01-2022 Urea nitrogen [Mass/Vol] 6 mg/dL 7-18 [facility] Thin prep Papanicolaou smear with manual screeningOrdered By: Dr. Aguayo on 02-01-2022 Thin prep Papanicolaou smear with manual screening 239 U/L 15-37 [facility] Thin prep Papanicolaou smear with manual screeningOrdered By: Dr. Lomeli on 02-01-2022 Thin prep Papanicolaou smear with manual screening 8 5-15 [facility] LABORATORYOrdered By: Amanda Ibrahim on 12-31-2021 HbA1c (Bld) [Mass fraction] 7.9 % [facility] Work Phone: Lab Performing Location [facility] Work Phone: Glucose Glucometer (BldC) [M ass/Vol]on 11-14-2021 Glucose [Mass/Vol] 270 mg/dL 74-106 [facility] Work Phone: Comment on above: MANAGEMENT OF PATIEN T CARE PER NURSING PROTOCOL Absolute lymphocyte counton 11-11-2021 Lymphocytes Auto (Unsp spec) [#/Vol] 1.48 10*3/uL 0.83-4.51 [facility] Work Phone: Basophil percentageon 2021 Basophil percentage 3.4 mg/dL 2.5-4.9 [facility] Work Phone: Basophils/100 WBC (Bld) 0.6 % 0-[address] [facility] Work Phone: Bilirubin [Mass/Vol] 0.60 mg/dL 0.20-1.00 [facility] Work Phone: Comment on above: For patients on eltr ombopag therapy, use of Dimension [place] TBIL is not recommended. Chloride [Moles/Vol] 98 mmol/L 98-107 [facility] Work Phone: Eosinophils/100 WBC (Bld) 0.4 % 0-5 [facility] Work Phone: Glucose [Mass/Vol] 284 mg/dL 74-106 [facility] Work Phone: Comment on above: Glucose result great er than or equal to 200 mg/dLsuggests DIABETES MELLITUS per A.D.A. criteria. Neutrophils (Bld) [#/Vol] 2.9 10*3/uL 2.0-7.7 [facility] Work Phone: Neutrophils/100 WBC (Bld) 57.5 % 47-70 [facility] Work Phone: Potassium [Moles/Vol] 3.5 mmol/L 3.5-5.1 [facility] Work Phone: Protein [Mass/Vol] 5.1 g/dL 6.4-8.2 [facility] Work Phone: Sodium [Moles/Vol] 137 mmol/L 136-145 [facility] Work Phone: WBC (Bld) [#/Vol] 5.0 10*3/uL 4.4-11.0 [facility] Work Phone: Blood erythrocytes count (nu mber/volume)on 11-11-2021 RBC (Bld) [#/Vol] 3.00 10*6/uL 4.6-6.2 [facility] Work Phone: Blood hemoglobin measurement (mass/volume)on 11-11-2021 Hemoglobin (Bld) [Mass/Vol] 11.3 g/dL 13.0-16.5 [facility] Work Phone: Blood lymphocytes/100 leukoc yteson 11-11-2021 Lymphocytes/100 WBC (Bld) 29.7 % 19-41 [facility] Work Phone: Blood monocytes/100 leukocyt eson 11-11-2021 Monocytes/100 WBC (Bld) 11.2 % 0-[address] [facility] Work Phone: Blood platelet adequacy dete ction by light microscopyon 11-11-2021 Platelets LM Ql (Bld) [facility] Work Phone: [phone] Blood platelet mean volumeon 11-11-2021 Platelet mean volume (Bld) [Entitic vol] 10.7 fL 6.2-12.0 [facility] Work Phone: Determination of erythrocyte mean corpuscular volume (MCV)on 11-11-2021 MCV (RBC) [Entitic vol] 110.7 fL 80-[address] [facility] Work Phone: Direct bilirubinon 2 Bilirubin.direct [Mass/Vol] 0.33 mg/dL 0.00-0.30 [facility] Work Phone: Hematocrit Auto (Bld) [Volum e fraction]on 11-11-2021 Hematocrit (Bld) [Volume fraction] 33.2 % 40-54 [facility] Work Phone: [phone] Laboratory - Chemistry and C hemistry - challengeon 11-11-2021 ALP [Catalytic activity/Vol] 133 U/L 45-117 [facility] Work Phone: ALT [Catalytic activity/Vol] 55 U/L 16-61 [facility] Work Phone: [phone] CO2 [Moles/Vol] 28.0 mmol/L 21.0-32.0 [facility] Work Phone: Globulin (S) [Mass/Vol] 2.9 g/dL 2.2-4.[address] [facility] Work Phone: Magnesium [Mass/Vol] 1.8 mg/dL 1.6-2.6 [facility] Work Phone: [phone] Urea nitrogen/Creatinine [Mass ratio] 7.8 mg/mg 10-20 [facility] Work Phone: [phone] Laboratory - Drug toxicology on 11-11-2021 Amphetamines Ql (U) Negative <1000 ng/mL [facility] Work Phone: [phone] Benzodiazepines Ql (U) Negative < 200 ng/mL [facility] Work Phone: [phone] Cannabinoids Screen Ql (U) Negative < 50 ng/mL [facility] Work Phone: [phone] Cocaine Ql (U) Negative < 300 ng/mL [facility] Work Phone: [phone] Opiates Ql (U) Negative < 300 ng/mL [facility] Work Phone: [phone] Laboratory - Hematology and Cell countson 11-11-2021 Anisocytosis Ql (Bld) 1+ [facility] Work Phone: [phone] Erythrocyte distribution width (RBC) [Entitic vol] 71.1 fL 35.1-43.9 [facility] Work Phone: [phone] Erythrocyte distribution width (RBC) [Ratio] 17.3 % 11.6-14.6 [facility] Work Phone: [phone] Immature granulocytes/100 WBC (Bld) 0.600 % 0.0-0.9 [facility] Work Phone: [phone] Comment on above: IG% - Immature Granu locytes (promyelocytes, myelocytes and metamyelocytes) > 1% indicates that a LEFT SHIFT is Present. MCH (RBC) [Entitic mass] 37.7 pg 27.0-32.0 [facility] Work Phone: [phone] Nucleated RBC/100 WBC (Bld) [Ratio] 0 % 0-5 [facility] Work Phone: [phone] MCHC Auto (RBC) [Mass/Vol]on 11-11-2021 MCHC (RBC) [Mass/Vol] 34.0 g/dL 32-36 [facility] Work Phone: Macrocytes detectionon 11-11 Macrocytes Ql (Bld) 1+ [facility] Work Phone: No Panel Informationon 11-11 MDMA (Ecstasy) Screen Negative < 500 ng/mL [facility] Work Phone: [phone] Urine Barbiturates Screen Positive < 200 ng/mL [facility] Work Phone: [phone] Urine Drug Screen Comment [facility] Work Phone: [phone] Comment on above: CONFIRMATORY TESTING FOR ALL [...] Urine Methadone Screen Negative < 300 ng/mL [facility] Work Phone: Estimated Creatinine Clearance Calc 63.79 ml/min [facility] Work Phone: [phone] Estimated GFR (MDRD) Amer 74 mL/min >60 [facility] Work Phone: [phone] Comment on above: GFR Calc Estimated GFR (MDRD) Non-Af Amer 61 mL/min >60 [facility] Work Phone: [phone] Comment on above: Non- GFR Calc Ethyl Alcohol Level 118.0 mg/dL [facility] Work Phone: [phone] Comment on above: The serum:whole bloo d ethanol ratio is approximately 1.14and varies slightly with hematocrit. Medical Alcohol reference interval and critical value innon-tolerant individuals; 50 - 100 Impairment 100 Intoxication 100 - 250 Severe Poisoning 250 - 400 Deep/possible fatal coma Platelets bldon 11-11-2021 Platelets (Bld) [#/Vol] 241 10*3/uL 150-450 [facility] Work Phone: Serum or plasma albumin luciana urement (mass/volume)on 11-11-2021 Albumin [Mass/Vol] 2.2 g/dL 3.2-5.0 [facility] Work Phone: Serum or plasma calcium luciana urement (mass/volume)on 11-11-2021 Calcium [Mass/Vol] 7.9 mg/dL 8.5-10.1 [facility] Work Phone: [phone] Serum or plasma creatinine m easurement (mass/volume)on 11-11-2021 Creatinine [Mass/Vol] 1.28 mg/dL 0.70-1.30 [facility] Work Phone: Comment on above: The validity of the calculated GFR & GFRAA in patients over 70 years has not been determined. Clinical correlation is essential. Serum or plasma urea nitroge n measurement (mass/volume)on 11-11-2021 Urea nitrogen [Mass/Vol] 10 mg/dL 7-18 [facility] Work Phone: Thin prep Papanicolaou smear with manual screeningon 11-11-2021 Thin prep Papanicolaou smear with manual screening 80 U/L 15-37 [facility] Work Phone: Thin prep Papanicolaou smear with manual screening 11 5-15 [facility] Work Phone: [phone] Urine phencyclidine (PCP) de tectionon 11-11-2021 Phencyclidine Ql (U) Negative < 25 ng/mL [facility] Work Phone: Basophil percentageon 2021 Chloride [Moles/Vol] 106 mmol/L 98-107 [facility] Work Phone: Glucose [Mass/Vol] 84 mg/dL 74-106 [facility] Work Phone: [phone] Potassium [Moles/Vol] 4.8 mmol/L 3.5-5.1 [facility] Work Phone: [phone] Sodium [Moles/Vol] 140 mmol/L 136-145 [facility] Work Phone: Glucose Glucometer (BldC) [M ass/Vol]on 11-08-2021 Glucose [Mass/Vol] 141 mg/dL 74-106 [facility] Work Phone: Comment on above: MANAGEMENT OF PATIEN T CARE PER NURSING PROTOCOL Laboratory - Chemistry and C hemistry - challengeon 11-08-2021 CO2 [Moles/Vol] 30.0 mmol/L 21.0-32.0 [facility] Work Phone: Urea nitrogen/Creatinine [Mass ratio] 8.0 mg/mg 10-20 [facility] Work Phone: [phone] Panel Informationon 11-08 Estimated Creatinine Clearance Calc 88.72 ml/min [facility] Work Phone: Estimated GFR (MDRD) Amer 114 mL/min >60 [facility] Work Phone: Comment on above: GFR Calc Estimated GFR (MDRD) Non-Af Amer 94 mL/min >60 [facility] Work Phone: Comment on above: Non- GFR Calc Serum or plasma calcium luciana urement (mass/volume)on 11-08-2021 Calcium [Mass/Vol] 7.7 mg/dL 8.5-10.1 [facility] Work Phone: Serum or plasma creatinine m easurement (mass/volume)on 11-08-2021 Creatinine [Mass/Vol] 0.88 mg/dL 0.70-1.30 [facility] Work Phone: Comment on above: The validity of the calculated GFR & GFRAA in patients over 70 years has not been determined. Clinical correlation is essential. Serum or plasma urea nitroge n measurement (mass/volume)on 11-08-2021 Urea nitrogen [Mass/Vol] 7 mg/dL 7-18 [facility] Work Phone: Thin prep Papanicolaou smear with manual screeningon 11-08-2021 Thin prep Papanicolaou smear with manual screening 4 5-15 [facility] Work Phone: Laboratory - Chemistry and C hemistry - challengeon 11-06-2021 Magnesium [Mass/Vol] 2.6 mg/dL 1.6-2.6 [facility] Work Phone: Comment on above: Slight Hemolysis, Re sult may be falsely increased. Absolute lymphocyte counton 11-05-2021 Lymphocytes Auto (Unsp spec) [#/Vol] 1.65 10*3/uL 0.83-4.51 [facility] Work Phone: [phone] Basophil percentageon 2021 Bilirubin [Mass/Vol] 0.80 mg/dL 0.20-1.00 [facility] Work Phone: Comment on above: For patients on eltr ombopag therapy, use of Dimension [place] TBIL is not recommended. Chloride [Moles/Vol] 92 mmol/L 98-107 [facility] Work Phone: [phone] Glucose [Mass/Vol] 310 mg/dL 74-106 [facility] Work Phone: Comment on above: Glucose result great er than or equal to 200 mg/dLsuggests DIABETES MELLITUS per A.D.A. criteria. Potassium [Moles/Vol] 2.5 mmol/L 3.5-5.1 [facility] Work Phone: Comment on above: Moderate Hemolysis, Result may be falsely increased. Critical Result(s) Called at: 17:34:59 11/05/2021 by: Carlos Minor to Galileo Short RN (ER). Results read back by same. Protein [Mass/Vol] 5.6 g/dL 6.4-8.2 [facility] Work Phone: [phone] Sodium [Moles/Vol] 138 mmol/L 136-145 [facility] Work Phone: [phone] Basophils/100 WBC (Bld) 1.0 % 0-[address] [facility] Work Phone: [phone] Eosinophils/100 WBC (Bld) 0.5 % 0-5 [facility] Work Phone: Neutrophils (Bld) [#/Vol] 3.4 10*3/uL 2.0-7.7 [facility] Work Phone: [phone] Neutrophils/100 WBC (Bld) 56.9 % 47-70 [facility] Work Phone: [phone] WBC (Bld) [#/Vol] 5.9 10*3/uL 4.4-11.0 [facility]: Blood erythrocytes count (nu mber/volume)on 11-05-2021 RBC (Bld) [#/Vol] 3.22 10*6/uL 4.6-6.2 [facility] Work Phone: Blood hemoglobin measurement (mass/volume)on 11-05-2021 Hemoglobin (Bld) [Mass/Vol] 12.0 g/dL 13.0-16.5 [facility] Work Phone: [phone] Blood lymphocytes/100 leukoc yteson 11-05-2021 Lymphocytes/100 WBC (Bld) 27.9 % 19-41 [facility] Work Phone: [phone] Blood monocytes/100 leukocyt eson 11-05-2021 Monocytes/100 WBC (Bld) 13.4 % 0-[address] [facility] Work Phone: Blood platelet mean volumeon 11-05-2021 Platelet mean volume (Bld) [Entitic vol] 11.5 fL 6.2-12.0 [facility] Work Phone: [phone] Determination of erythrocyte mean corpuscular volume (MCV)on 11-05-2021 MCV (RBC) [Entitic vol] 107.8 fL 80-[address] [facility] Work Phone: Hematocrit Auto (Bld) [Volum e fraction]on 11-05-2021 Hematocrit (Bld) [Volume fraction] 34.7 % 40-54 [facility] Work Phone: Laboratory - Chemistry and C hemistry - challengeon 11-05-2021 ALP [Catalytic activity/Vol] 150 U/L 45-117 [facility] Work Phone: ALT [Catalytic activity/Vol] 78 U/L 16-61 [facility] Work Phone: [phone] CO2 [Moles/Vol] 27.0 mmol/L 21.0-32.0 [facility] Work Phone: [phone] Globulin (S) [Mass/Vol] 3.3 g/dL 2.2-4.[address] [facility] Work Phone: [phone] Lipase [Catalytic activity/Vol] 11 U/L 73-393 [facility] Work Phone: [phone] Urea nitrogen/Creatinine [Mass ratio] 6.1 mg/mg 10-20 [facility] Work Phone: [phone] Laboratory - Drug toxicology on 11-05-2021 Amphetamines Ql (U) Negative <1000 ng/mL [facility] Work Phone: [phone] Benzodiazepines Ql (U) Negative < 200 ng/mL [facility] Work Phone: [phone] Cannabinoids Screen Ql (U) Negative < 50 ng/mL [facility] Work Phone: [phone] Cocaine Ql (U) Negative < 300 ng/mL [facility] Work Phone: [phone] Opiates Ql (U) Negative < 300 ng/mL [facility] Work Phone: [phone] Laboratory - Hematology and Cell countson 11-05-2021 Erythrocyte distribution width (RBC) [Entitic vol] 62.5 fL 35.1-43.9 [facility] Work Phone: [phone] Erythrocyte distribution width (RBC) [Ratio] 15.7 % 11.6-14.6 [facility] Work Phone: [phone] Immature granulocytes/100 WBC (Bld) 0.300 % 0.0-0.9 [facility] Work Phone: [phone] Comment on above: IG% - Immature Granu locytes (promyelocytes, myelocytes and metamyelocytes) > 1% indicates that a LEFT SHIFT is Present. MCH (RBC) [Entitic mass] 37.3 pg 27.0-32.0 [facility] Work Phone: [phone] Nucleated RBC/100 WBC (Bld) [Ratio] 0 % 0-5 [facility] Work Phone: [phone] MCHC Auto (RBC) [Mass/Vol]on 11-05-2021 MCHC (RBC) [Mass/Vol] 34.6 g/dL 32-36 [facility] Work Phone: [phone] Panel Informationon 11-05 MDMA (Ecstasy) Screen Negative < 500 ng/mL [facility] Work Phone: [phone] Urine Barbiturates Screen Negative < 200 ng/mL [facility] Work Phone: [phone] Urine Drug Screen Comment [facility] Work Phone: [phone] Comment on above: CONFIRMATORY TESTING FOR ALL [...] Methadone Screen Negative < 300 ng/mL [facility] Work Phone: [phone] Estimated Creatinine Clearance Calc 73.66 ml/min [facility] Work Phone: [phone] Estimated GFR (MDRD) Amer 84 mL/min >60 [facility] Work Phone: [phone] Comment on above: GFR Calc Estimated GFR (MDRD) Non-Af Amer 69 mL/min >60 [facility] Work Phone: [phone] Comment on above: Non- GFR Calc Ethyl Alcohol Level 253.0 mg/dL [facility] Work Phone: [phone] Comment on above: The serum:whole bloo d ethanol ratio is approximately 1.14and varies slightly with hematocrit. Medical Alcohol reference interval and critical value innon-tolerant individuals; 50 - 100 Impairment 100 Intoxication 100 - 250 Severe Poisoning 250 - 400 Deep/possible fatal coma Platelets bldon 11-05-2021 Platelets (Bld) [#/Vol] 215 10*3/uL 150-450 [facility] Work Phone: Serum or plasma albumin luciana urement (mass/volume)on 11-05-2021 Albumin [Mass/Vol] 2.3 g/dL 3.2-5.0 [facility] Work Phone: Serum or plasma albumin/glob ulin mass ratioon 11-05-2021 Albumin/Globulin [Mass ratio] 0.7 {ratio} 0.9-2.4 [facility] Work Phone: Serum or plasma calcium luciana urement (mass/volume)on 11-05-2021 Calcium [Mass/Vol] 7.8 mg/dL 8.5-10.1 [facility] Work Phone: Serum or plasma creatinine m easurement (mass/volume)on 11-05-2021 Creatinine [Mass/Vol] 1.15 mg/dL 0.70-1.30 [facility] Work Phone: Comment on above: The validity of the calculated GFR & GFRAA in patients over 70 years has not been determined. Clinical correlation is essential. Serum or plasma urea nitroge n measurement (mass/volume)on 11-05-2021 Urea nitrogen [Mass/Vol] 7 mg/dL 7-18 [facility] Work Phone: Thin prep Papanicolaou smear with manual screeningon 11-05-2021 Thin prep Papanicolaou smear with manual screening 163 U/L 15-37 [facility] Work Phone: Comment on above: Moderate Hemolysis, Result may be falsely increased. Thin prep Papanicolaou smear with manual screening 19 5-15 [facility] Work Phone: Urine phencyclidine (PCP) de tectionon 11-05-2021 Phencyclidine Ql (U) Negative < 25 ng/mL [facility] Work Phone: Absolute lymphocyte counton 10-06-2021 Lymphocytes Auto (Unsp spec) [#/Vol] 1.72 10*3/uL 0.83-4.51 [facility] Work Phone: Basophil percentageon 2021 Basophils/100 WBC (Bld) 2.1 % 0-[address] [facility] Work Phone: Chloride [Moles/Vol] 108 mmol/L 98-107 [facility] Work Phone: Eosinophils/100 WBC (Bld) 2.6 % 0-5 [facility] Work Phone: Glucose [Mass/Vol] 236 mg/dL 74-106 [facility] Work Phone: Comment on above: Glucose result great er than or equal to 200 mg/dLsuggests DIABETES MELLITUS per A.D.A. criteria. Neutrophils (Bld) [#/Vol] 1.7 10*3/uL 2.0-7.7 [facility] Work Phone: Neutrophils/100 WBC (Bld) 40.4 % 47-70 [facility] Work Phone: Potassium [Moles/Vol] 3.4 mmol/L 3.5-5.[address] [facility] Work [facility]: Sodium [Moles/Vol] 144 mmol/L 136-145 [facility] Work Phone: WBC (Bld) [#/Vol] 4.3 10*3/uL 4.4-11.0 [facility] Work Phone: Blood erythrocytes count (nu mber/volume)on 10-06-2021 RBC (Bld) [#/Vol] 3.85 10*6/uL 4.6-6.2 [facility] Work Phone: Blood hemoglobin measurement (mass/volume)on 10-06-2021 Hemoglobin (Bld) [Mass/Vol] 13.6 g/dL 13.0-16.5 [facility] Work Phone: Blood lymphocytes/100 leukoc yteson 10-06-2021 Lymphocytes/100 WBC (Bld) 40.5 % 19-41 [facility] Work Phone: Blood monocytes/100 leukocyt eson 10-06-2021 Monocytes/100 WBC (Bld) 13.9 % 0-[address] [facility] Work Phone: [phone] Blood platelet mean volumeon 10-06-2021 Platelet mean volume (Bld) [Entitic vol] 9.6 fL 6.2-12.0 [facility] Work Phone: Determination of erythrocyte mean corpuscular volume (MCV)on 10-06-2021 MCV (RBC) [Entitic vol] 101.0 fL 80-[address] [facility] Work Phone: [phone] Glucose Glucometer (BldC) [M ass/Vol]on 10-06-2021 Glucose [Mass/Vol] 211 mg/dL 74-106 [facility] Work Phone: [phone] Comment on above: MANAGEMENT OF PATIEN T CARE PER NURSING PROTOCOL Hematocrit Auto (Bld) [Volum e fraction]on 10-06-2021 Hematocrit (Bld) [Volume fraction] 38.9 % 40-54 [facility] Work Phone: Laboratory - Chemistry and C hemistry - challengeon 10-06-2021 CO2 [Moles/Vol] 28.0 mmol/L 21.0-32.0 [facility] Work Phone: [phone] Urea nitrogen/Creatinine [Mass ratio] 4.3 mg/mg 10-20 [facility] Work Phone: [phone] Laboratory - Drug toxicology on 10-06-2021 Amphetamines Ql (U) Negative <1000 ng/mL [facility] Work Phone: [phone] Benzodiazepines Ql (U) Negative < 200 ng/mL [facility] Work Phone: [phone] Cannabinoids Screen Ql (U) Negative < 50 ng/mL [facility] Work Phone: [phone] Cocaine Ql (U) Negative < 300 ng/mL [facility] Work Phone: [phone] Opiates Ql (U) Negative < 300 ng/mL [facility] Work Phone: [phone] Laboratory - Hematology and Cell countson 10-06-2021 Erythrocyte distribution width (RBC) [Entitic vol] 52.8 fL 35.1-43.9 [facility] Work Phone: [phone] Erythrocyte distribution width (RBC) [Ratio] 14.3 % 11.6-14.6 [facility] Work Phone: [phone] Immature granulocytes/100 WBC (Bld) 0.500 % 0.0-0.9 [facility] Work Phone: [phone] Comment on above: IG% - Immature Granu locytes (promyelocytes, myelocytes and metamyelocytes) > 1% indicates that a LEFT SHIFT is Present. MCH (RBC) [Entitic mass] 35.3 pg 27.0-32.0 [facility] Work Phone: [phone] Nucleated RBC/100 WBC (Bld) [Ratio] 0 % 0-5 [facility] Work Phone: [phone] MCHC Auto (RBC) [Mass/Vol]on 10-06-2021 MCHC (RBC) [Mass/Vol] 35.0 g/dL 32-36 [facility] Work Phone: [phone] Panel Informationon 10-06 Ethyl Alcohol Level 107.0 mg/dL [facility] Work Phone: [phone] Comment on above: The serum:whole bloo d ethanol ratio is approximately 1.14and varies slightly with hematocrit. Medical Alcohol reference interval and critical value innon-tolerant individuals; 50 - 100 Impairment 100 Intoxication 100 - 250 Severe Poisoning 250 - 400 Deep/possible fatal coma Estimated Creatinine Clearance Calc 63.62 ml/min [facility] Work Phone: [phone] Estimated GFR (MDRD) Amer 83 mL/min >60 [facility] Work Phone: [phone] Comment on above: GFR Calc Estimated GFR (MDRD) Non-Af Amer 68 mL/min >60 [facility] Work Phone: [phone] Comment on above: Non- GFR Calc MDMA (Ecstasy) Screen Negative < 500 ng/mL [facility] Work Phone: Urine Barbiturates Screen Negative < 200 ng/mL [facility] Work Phone: Urine Drug Screen Comment [facility] Work Phone: Comment on above: CONFIRMATORY [...] Methadone Screen Negative < 300 ng/mL [facility] Work Phone: Platelets bldon 10-06-2021 Platelets (Bld) [#/Vol] 232 10*3/uL 150-450 [facility] Work Phone: Serum or plasma calcium luciana urement (mass/volume)on 10-06-2021 Calcium [Mass/Vol] 8.5 mg/dL 8.5-10.1 [facility] Work Phone: Serum or plasma creatinine m easurement (mass/volume)on 10-06-2021 Creatinine [Mass/Vol] 1.16 mg/dL 0.70-1.30 [facility] Work Phone: Comment on above: The validity of the calculated GFR & GFRAA in patients over 70 years has not been determined. Clinical correlation is essential. Serum or plasma urea nitroge n measurement (mass/volume)on 10-06-2021 Urea nitrogen [Mass/Vol] 5 mg/dL 7-18 [facility] Work Phone: Thin prep Papanicolaou smear with manual screeningon 10-06-2021 Thin prep Papanicolaou smear with manual screening 8 5-15 [facility] Work Phone: [phone] Urine phencyclidine (PCP) de tectionon 10-06-2021 Phencyclidine Ql (U) Negative < 25 ng/mL [facility] Work Phone: Absolute lymphocyte counton 09-30-2021 Lymphocytes Auto (Unsp spec) [#/Vol] 1.63 10*3/uL 0.83-4.51 [facility] Work Phone: Basophil percentageon 2021 Basophils/100 WBC (Bld) 0.7 % 0-[address] [facility] Work Phone: Bilirubin [Mass/Vol] 0.40 mg/dL 0.20-1.00 [facility] Work Phone: Comment on above: For patients on eltr ombopag therapy, use of Dimension [place] TBIL is not recommended. Chloride [Moles/Vol] 97 mmol/L 98-107 [facility] Work Phone: Eosinophils/100 WBC (Bld) 0.4 % 0-5 [facility] Work Phone: Glucose [Mass/Vol] 221 mg/dL 74-106 [facility] Work Phone: Comment on above: Glucose result great er than or equal to 200 mg/dLsuggests DIABETES MELLITUS per A.D.A. criteria. Neutrophils (Bld) [#/Vol] 5.1 10*3/uL 2.0-7.7 [facility] Work Phone: Neutrophils/100 WBC (Bld) 69.1 % 47-70 [facility] Work Phone: Potassium [Moles/Vol] 3.2 mmol/L 3.5-5.1 [facility] Work Phone: Protein [Mass/Vol] 6.1 g/dL 6.4-8.2 [facility] Work Phone: Sodium [Moles/Vol] 135 mmol/L 136-145 [facility] Work Phone: WBC (Bld) [#/Vol] 7.4 10*3/uL 4.4-11.0 [facility] Work Phone: [phone] Blood erythrocytes count (nu mber/volume)on 09-30-2021 RBC (Bld) [#/Vol] 3.92 10*6/uL 4.6-6.2 [facility] Work Phone: [phone] Blood hemoglobin measurement (mass/volume)on 09-30-2021 Hemoglobin (Bld) [Mass/Vol] 13.7 g/dL 13.0-16.5 [facility] Work Phone: [phone] Blood lymphocytes/100 leukoc yteson 09-30-2021 Lymphocytes/100 WBC (Bld) 22.0 % 19-41 [facility] Work Phone: [phone] Blood monocytes/100 leukocyt eson 09-30-2021 Monocytes/100 WBC (Bld) 7.3 % 0-[address] [facility] Work Phone: [phone] Blood platelet mean volumeon 09-30-2021 Platelet mean volume (Bld) [Entitic vol] 10.4 fL 6.2-12.0 [facility] Work Phone: Determination of erythrocyte mean corpuscular volume (MCV)on 09-30-2021 MCV (RBC) [Entitic vol] 100.3 fL 80-[address] [facility] Work Phone: [phone] Hematocrit Auto (Bld) [Volum e fraction]on 09-30-2021 Hematocrit (Bld) [Volume fraction] 39.3 % 40-54 [facility] Work Phone: Laboratory - Chemistry and C hemistry - challengeon 09-30-2021 ALP [Catalytic activity/Vol] 128 U/L 45-117 [facility] Work Phone: [phone] ALT [Catalytic activity/Vol] 72 U/L 16-61 [facility] Work Phone: [phone] CO2 [Moles/Vol] 24.0 mmol/L 21.0-32.0 [facility] Work Phone: [phone] Globulin (S) [Mass/Vol] 3.3 g/dL 2.2-4.[address] [facility] Work Phone: [phone] Urea nitrogen/Creatinine [Mass ratio] 8.7 mg/mg 10-20 [facility] Work Phone: [phone] Laboratory - Hematology and Cell countson 09-30-2021 Erythrocyte distribution width (RBC) [Entitic vol] 49.8 fL 35.1-43.9 [facility] Work Phone: [phone] Erythrocyte distribution width (RBC) [Ratio] 13.5 % 11.6-14.6 [facility] Work Phone: [phone] Immature granulocytes/100 WBC (Bld) 0.500 % 0.0-0.9 [facility] Work Phone: [phone] Comment on above: IG% - Immature Granu locytes (promyelocytes, myelocytes and metamyelocytes) > 1% indicates that a LEFT SHIFT is Present. MCH (RBC) [Entitic mass] 34.9 pg 27.0-32.0 [facility] Work Phone: [phone] Nucleated RBC/100 WBC (Bld) [Ratio] 0 % 0-5 [facility] Work Phone: [phone] MCHC Auto (RBC) [Mass/Vol]on 09-30-2021 MCHC (RBC) [Mass/Vol] 34.9 g/dL 32-36 [facility] Work Phone: [phone] Panel Informationon 09-30 Estimated Creatinine Clearance Calc 55.84 ml/min [facility] Work Phone: [phone] Estimated GFR (MDRD) Amer 68 mL/min >60 [facility] Work Phone: [phone] Comment on above: GFR Calc Estimated GFR (MDRD) Non-Af Amer 56 mL/min >60 [facility] Work Phone: [phone] Comment on above: Non- GFR Calc Ethyl Alcohol Level 141.0 mg/dL [facility] Work Phone: [phone] Comment on above: The serum:whole bloo d ethanol ratio is approximately 1.14and varies slightly with hematocrit. Medical Alcohol reference interval and critical value innon-tolerant individuals; 50 - 100 Impairment 100 Intoxication 100 - 250 Severe Poisoning 250 - 400 Deep/possible fatal coma Troponin I High Sensitivity 34 pg/mL 3.0-78.0 [facility] Work Phone: Comment on above: Please Note: New Kelly t Units and Gender Specific Reference Ranges. For more information see Policy Stat Procedure [place] High Sensitivity Troponin (TNIH) and attachments. Platelets bldon 09-30-2021 Platelets (Bld) [#/Vol] 191 10*3/uL 150-450 [facility] Work Phone: [phone] Serum or plasma albumin luciana urement (mass/volume)on 09-30-2021 Albumin [Mass/Vol] 2.8 g/dL 3.2-5.0 [facility] Work Phone: [phone] Serum or plasma albumin/glob ulin mass ratioon 09-30-2021 Albumin/Globulin [Mass ratio] 0.8 {ratio} 0.9-2.4 [facility] Work Phone: [phone] Serum or plasma calcium luciana urement (mass/volume)on 09-30-2021 Calcium [Mass/Vol] 8.4 mg/dL 8.5-10.1 [facility] Work Phone: Serum or plasma creatinine m easurement (mass/volume)on 09-30-2021 Creatinine [Mass/Vol] 1.38 mg/dL 0.70-1.30 [facility] Work Phone: Comment on above: The validity of the calculated GFR & GFRAA in patients over 70 years has not been determined. Clinical correlation is essential. Serum or plasma urea nitroge n measurement (mass/volume)on 09-30-2021 Urea nitrogen [Mass/Vol] 12 mg/dL 7-18 [facility] Work Phone: [phone] Thin prep Papanicolaou smear with manual screeningon 09-30-2021 Thin prep Papanicolaou smear with manual screening 98 U/L 15-37 [facility] Work Phone: [phone] Thin prep Papanicolaou smear with manual screening 14 5-15 [facility] Work Phone: [phone] LABORATORYOrdered By: Ade Marion on 08-06-2021 Albumin [...] ass/Vol]on 06-01-2021 Glucose [Mass/Vol] 202 mg/dL 74-106 [facility] Work Phone: Comment on above: MANAGEMENT OF PATIEN T CARE PER NURSING PROTOCOL Absolute lymphocyte counton 05-29-2021 Lymphocytes Auto (Unsp spec) [#/Vol] 0.95 10*3/uL 0.83-4.51 [facility] Work Phone: Acetaminophen level (mass/vo lume)on 05-29-2021 Acetaminophen (Unsp spec) [Mass/Vol] < 2.0 ug/mL 10.0-30.0 [facility] Work Phone: Basophil percentageon 2021 Basophils/100 WBC (Bld) 1.1 % 0-[address] [facility] Work Phone: Bilirubin [Mass/Vol] 0.20 mg/dL 0.20-1.00 [facility] Work Phone: Comment on above: For patients on eltr ombopag therapy, use of Dimension [place] TBIL is not recommended. Chloride [Moles/Vol] 102 mmol/L 98-107 [facility] Work Phone: Eosinophils/100 WBC (Bld) 0.9 % 0-5 [facility] Work Phone: Glucose [Mass/Vol] 323 mg/dL 74-106 [facility] Work Phone: Comment on above: Glucose result great er than or equal to 200 mg/dLsuggests DIABETES MELLITUS per A.D.A. criteria. Neutrophils (Bld) [#/Vol] 5.6 10*3/uL 2.0-7.7 [facility] Work Phone: Neutrophils/100 WBC (Bld) 76.3 % 47-70 [facility] Work Phone: Potassium [Moles/Vol] 3.8 mmol/L 3.5-5.1 [facility] Work Phone: Protein [Mass/Vol] 6.7 g/dL 6.4-8.2 [facility] Work Phone: Sodium [Moles/Vol] 141 mmol/L 136-145 [facility] Work Phone: WBC (Bld) [#/Vol] 7.4 10*3/uL 4.4-11.0 [facility] Work Phone: Blood erythrocytes count (nu mber/volume)on 05-29-2021 RBC (Bld) [#/Vol] 4.06 10*6/uL 4.6-6.2 [facility] Work Phone: Blood hemoglobin measurement (mass/volume)on 05-29-2021 Hemoglobin (Bld) [Mass/Vol] 13.0 g/dL 13.0-16.5 [facility] Work Phone: Blood lymphocytes/100 leukoc yteson 05-29-2021 Lymphocytes/100 WBC (Bld) 12.9 % 19-41 [facility] Work Phone: Blood monocytes/100 leukocyt eson 05-29-2021 Monocytes/100 WBC (Bld) 8.3 % 0-[address] [facility] Work Phone: [phone] Blood platelet mean volumeon 05-29-2021 Platelet mean volume (Bld) [Entitic vol] 10.9 fL 6.2-12.0 [facility] Work Phone: Determination of erythrocyte mean corpuscular volume (MCV)on 05-29-2021 MCV (RBC) [Entitic vol] 94.3 fL 80-[address] [facility] Work Phone: Direct bilirubinon Bilirubin.direct [Mass/Vol] 0.12 mg/dL 0.00-0.30 [facility] Work Phone: [phone] Hematocrit Auto (Bld) [Volum e fraction]on 05-29-2021 Hematocrit (Bld) [Volume fraction] 38.3 % 40-54 [facility] Work Phone: Laboratory - Chemistry and C hemistry - challengeon 05-29-2021 ALP [Catalytic activity/Vol] 105 U/L 45-117 [facility] Work Phone: ALT [Catalytic activity/Vol] 23 U/L 16-61 [facility] Work Phone: [phone] CO2 [Moles/Vol] 29.0 mmol/L 21.0-32.0 [facility] Work Phone: Globulin (S) [Mass/Vol] 3.2 g/dL 2.2-4.[address] [facility] Work Phone: Urea nitrogen/Creatinine [Mass ratio] 10.9 mg/mg 10-20 [facility] Work Phone: Laboratory - Drug toxicology on 05-29-2021 Amphetamines Ql (U) Negative [facility] Work Phone: Benzodiazepines Ql (U) Negative [facility] Work Phone: Cannabinoids Screen Ql (U) Negative [facility] Work Phone: [phone] Cocaine Ql (U) Negative [facility] Work Phone: [phone] Opiates Ql (U) Negative [facility] Work Phone: [phone] Laboratory - Hematology and Cell countson 05-29-2021 Erythrocyte distribution width (RBC) [Entitic vol] 48.4 fL 35.1-43.9 [facility] Work Phone: [phone] Erythrocyte distribution width (RBC) [Ratio] 13.9 % 11.6-14.6 [facility] Work Phone: [phone] Immature granulocytes/100 WBC (Bld) 0.500 % 0.0-0.9 [facility] Work Phone: [phone] Comment on above: IG% - Immature Granu locytes (promyelocytes, myelocytes and metamyelocytes) > 1% indicates that a LEFT SHIFT is Present. MCH (RBC) [Entitic mass] 32.0 pg 27.0-32.0 [facility] Work Phone: [phone] Nucleated RBC/100 WBC (Bld) [Ratio] 0 % 0-5 [facility] Work Phone: [phone] MCHC Auto (RBC) [Mass/Vol]on 05-29-2021 MCHC (RBC) [Mass/Vol] 33.9 g/dL 32-36 [facility] Work Phone: [phone] Panel Informationon 05-29 MDMA (Ecstasy) Screen Negative [facility] Work Phone: [phone] Urine Barbiturates Screen Negative [facility] Work Phone: [phone] Urine Drug Screen Comment [facility] Work Phone: [phone] Comment on above: CONFIRMATORY TESTING FOR ALL [...] USE TESTMNEMONIC: [facility] Urine Methadone Screen Negative [facility] Work Phone: Estimated Creatinine Clearance Calc 71.63 ml/min [facility] Work Phone: [phone] Estimated GFR (MDRD) Amer 81 mL/min >60 [facility] Work Phone: Comment on above: GFR Calc Estimated GFR (MDRD) Non-Af Amer 67 mL/min >60 [facility] Work Phone: Comment on above: Non- GFR Calc Ethyl Alcohol Level 46.0 mg/dL [facility] Work Phone: Comment on above: The serum:whole bloo d ethanol ratio is approximately 1.14and varies slightly with hematocrit. Medical Alcohol reference interval and critical value innon-tolerant individuals; 50 - 100 Impairment 100 Intoxication 100 - 250 Severe Poisoning 250 - 400 Deep/possible fatal coma Platelets bldon 05-29-2021 Platelets (Bld) [#/Vol] 220 10*3/uL 150-450 [facility] Work Phone: Serum or plasma albumin luciana urement (mass/volume)on 05-29-2021 Albumin [Mass/Vol] 3.5 g/dL 3.2-5.0 [facility] Work Phone: Serum or plasma calcium luciana urement (mass/volume)on 05-29-2021 Calcium [Mass/Vol] 8.2 mg/dL 8.5-10.1 [facility] Work Phone: [phone] Serum or plasma creatinine m easurement (mass/volume)on 05-29-2021 Creatinine [Mass/Vol] 1.19 mg/dL 0.70-1.30 [facility] Work Phone: Comment on above: The validity of the calculated GFR & GFRAA in patients over 70 years has not been determined. Clinical correlation is essential. Serum or plasma salicylates measurement (mass/volume)on 04-21-2022 Salicylates [Mass/Vol] 12.6 mg/dL 2.8-20.0 [facility] Work Phone: Serum or plasma urea nitroge n measurement (mass/volume)on 05-29-2021 Urea nitrogen [Mass/Vol] 13 mg/dL 7-18 [facility] Work Phone: Thin prep Papanicolaou smear with manual screeningon 05-29-2021 Thin prep Papanicolaou smear with manual screening 33 U/L 15-37 [facility] Work Phone: Thin prep Papanicolaou smear with manual screening 10 5-15 [facility] Work Phone: [phone] Urine phencyclidine (PCP) de tectionon 05-29-2021 Phencyclidine Ql (U) Negative [facility] Work Phone: Glucose Glucometer (BldC) [M ass/Vol]on 05-22-2021 Glucose [Mass/Vol] 213 mg/dL 74-106 [facility] Work Phone: Comment on above: MANAGEMENT OF PATIEN T CARE PER NURSING PROTOCOL No Panel Informationon 05-22 Ethyl Alcohol Level 101.0 mg/dL [facility] Work Phone: Comment on above: The serum:whole bloo d ethanol ratio is approximately 1.14and varies slightly with hematocrit. Medical Alcohol reference interval and critical value innon-tolerant individuals; 50 - 100 Impairment 100 Intoxication 100 - 250 Severe Poisoning 250 - 400 Deep/possible fatal coma Absolute lymphocyte counton 05-21-2021 Lymphocytes Auto (Unsp spec) [#/Vol] 1.24 10*3/uL 0.83-4.51 [facility] Work Phone: Basophil percentageon 2021 Basophils/100 WBC (Bld) 2.0 % 0-[address] [facility] Work Phone: [phone] Bilirubin [Mass/Vol] 0.20 mg/dL 0.20-1.00 [facility] Work Phone: [phone] Comment on above: For patients on eltr ombopag therapy, use of Dimension [place] TBIL is not recommended. Chloride [Moles/Vol] 105 mmol/L 98-107 [facility] Work Phone: Eosinophils/100 WBC (Bld) 2.2 % 0-5 [facility] Work Phone: Glucose [Mass/Vol] 440 mg/dL 74-106 [facility] Work Phone: Comment on above: Glucose result great er than or equal to 200 mg/dLsuggests DIABETES MELLITUS per A.D.A. criteria. Neutrophils (Bld) [#/Vol] 4.0 10*3/uL 2.0-7.7 [facility] Work Phone: Neutrophils/100 WBC (Bld) 66.7 % 47-70 [facility] Work Phone: Potassium [Moles/Vol] 3.5 mmol/L 3.5-5.1 [facility] Work Phone: Protein [Mass/Vol] 6.7 g/dL 6.4-8.2 [facility] Work Phone: Sodium [Moles/Vol] 142 mmol/L 136-145 [facility] Work Phone: WBC (Bld) [#/Vol] 6.0 10*3/uL 4.4-11.0 [facility] Work Phone: Blood erythrocytes count (nu mber/volume)on 05-21-2021 RBC (Bld) [#/Vol] 4.36 10*6/uL 4.6-6.2 [facility] Work Phone: Blood hemoglobin measurement (mass/volume)on 05-21-2021 Hemoglobin (Bld) [Mass/Vol] 14.1 g/dL 13.0-16.5 [facility] Work Phone: Blood lymphocytes/100 leukoc yteson 05-21-2021 Lymphocytes/100 WBC (Bld) 20.5 % 19-41 [facility] Work Phone: Blood monocytes/100 leukocyt eson 05-21-2021 Monocytes/100 WBC (Bld) 8.3 % 0-[address] [facility] Work Phone: Blood platelet mean volumeon 05-21-2021 Platelet mean volume (Bld) [Entitic vol] 9.9 fL 6.2-12.0 [facility] Work Phone: Determination of erythrocyte mean corpuscular volume (MCV)on 05-21-2021 MCV (RBC) [Entitic vol] 93.8 fL 80-[address] [facility] Work Phone: Hematocrit Auto (Bld) [Volum e fraction]on 05-21-2021 Hematocrit (Bld) [Volume fraction] 40.9 % 40-54 [facility] Work Phone: INR in Blood by Coagulation assayon 05-21-2021 INR Coag (Bld) [Relative time] 1.1 {INR} [facility] Work Phone: Laboratory - Chemistry and C hemistry - challengeon 05-21-2021 ALP [Catalytic activity/Vol] 109 U/L 45-117 [facility] Work Phone: ALT [Catalytic activity/Vol] 23 U/L 16-61 [facility] Work Phone: [phone] CO2 [Moles/Vol] 27.0 mmol/L 21.0-32.0 [facility] Work Phone: Globulin (S) [Mass/Vol] 3.3 g/dL 2.2-4.[address] [facility] Work Phone: Urea nitrogen/Creatinine [Mass ratio] 8.5 mg/mg 10-20 [facility] Work Phone: Laboratory - Coagulationon 0 05-21-2021 PT Coag (PPP) [Time] 13.9 s 11.7-14.9 [facility] Work Phone: Laboratory - Drug toxicology on 05-21-2021 Amphetamines Ql (U) Negative [facility] Work Phone: Benzodiazepines Ql (U) Negative [facility] Work Phone: [phone] Cannabinoids Screen Ql (U) Negative [facility] Work Phone: [phone] Cocaine Ql (U) Negative [facility] Work Phone: [phone] Opiates Ql (U) Negative [facility] Work Phone: [phone] Laboratory - Hematology and Cell countson 05-21-2021 Erythrocyte distribution width (RBC) [Entitic vol] 48.5 fL 35.1-43.9 [facility] Work Phone: [phone] Erythrocyte distribution width (RBC) [Ratio] 13.9 % 11.6-14.6 [facility] Work Phone: [phone] Immature granulocytes/100 WBC (Bld) 0.300 % 0.0-0.9 [facility] Work Phone: [phone] Comment on above: IG% - Immature Granu locytes (promyelocytes, myelocytes and metamyelocytes) > 1% indicates that a LEFT SHIFT is Present. MCH (RBC) [Entitic mass] 32.3 pg 27.0-32.0 [facility] Work Phone: [phone] Nucleated RBC/100 WBC (Bld) [Ratio] 0 % 0-5 [facility] Work Phone: [phone] MCHC Auto (RBC) [Mass/Vol]on 05-21-2021 MCHC (RBC) [Mass/Vol] 34.5 g/dL 32-36 [facility] Work Phone: [phone] Panel Informationon 05-21 MDMA (Ecstasy) Screen Negative [facility] Work Phone: [phone] Urine Barbiturates Screen Negative [facility] Work Phone: [phone] Urine Drug Screen Comment [facility] Work Phone: [phone] Comment on above: CONFIRMATORY TESTING FOR ALL [...] USE TESTMNEMONIC: [facility] Urine Methadone Screen Negative [facility] Work Phone: [phone] Estimated Creatinine Clearance Calc 68.24 ml/min [facility] Work Phone: [phone] Estimated GFR (MDRD) Amer 81 mL/min >60 [facility] Work Phone: [phone] Comment on above: GFR Calc Estimated GFR (MDRD) Non-Af Amer 67 mL/min >60 [facility] Work Phone: Comment on above: Non- GFR Calc Platelets bldon 05-21-2021 Platelets (Bld) [#/Vol] 232 10*3/uL 150-450 [facility] Work Phone: Serum or plasma albumin luciana urement (mass/volume)on 05-21-2021 Albumin [Mass/Vol] 3.4 g/dL 3.2-5.0 [facility] Work Phone: Serum or plasma albumin/glob ulin mass ratioon 05-21-2021 Albumin/Globulin [Mass ratio] 1.0 {ratio} 0.9-2.4 [facility] Work Phone: Serum or plasma calcium luciana urement (mass/volume)on 05-21-2021 Calcium [Mass/Vol] 8.2 mg/dL 8.5-10.1 [facility] Work Phone: [phone] Serum or plasma creatinine m easurement (mass/volume)on 05-21-2021 Creatinine [Mass/Vol] 1.18 mg/dL 0.70-1.30 [facility] Work Phone: Comment on above: The validity of the calculated GFR & GFRAA in patients over 70 years has not been determined. Clinical correlation is essential. Serum or plasma urea nitroge n measurement (mass/volume)on 05-21-2021 Urea nitrogen [Mass/Vol] 10 mg/dL 7-18 [facility] Work Phone: Thin prep Papanicolaou smear with manual screeningon 05-21-2021 Thin prep Papanicolaou smear with manual screening 18 U/L 15-37 [facility] Work Phone: Thin prep Papanicolaou smear with manual screening 10 5-15 [facility] Work Phone: Urine phencyclidine (PCP) de tectionon 05-21-2021 Phencyclidine Ql (U) Negative [facility] Work Phone: Absolute lymphocyte counton 05-05-2021 Lymphocytes Auto (Unsp spec) [#/Vol] 1.28 10*3/uL 0.83-4.51 [facility] Work Phone: Basophil percentageon 2021 Basophils/100 WBC (Bld) 0.9 % 0-[address] [facility] Work Phone: Chloride [Moles/Vol] 106 mmol/L 98-107 [facility] Work Phone: Eosinophils/100 WBC (Bld) 2.5 % 0-5 [facility] Work Phone: Glucose [Mass/Vol] 96 mg/dL 74-106 [facility] Work Phone: Neutrophils (Bld) [#/Vol] 4.7 10*3/uL 2.0-7.7 [facility] Work Phone: Neutrophils/100 WBC (Bld) 68.2 % 47-70 [facility] Work Phone: Potassium [Moles/Vol] 3.7 mmol/L 3.5-5.1 [facility] Work Phone: Sodium [Moles/Vol] 139 mmol/L 136-145 [facility] Work Phone: WBC (Bld) [#/Vol] 6.9 10*3/uL 4.4-11.0 [facility] Work Phone: Blood erythrocytes count (nu mber/volume)on 05-05-2021 RBC (Bld) [#/Vol] 3.88 10*6/uL 4.6-6.2 [facility] Work Phone: Blood hemoglobin measurement (mass/volume)on 05-05-2021 Hemoglobin (Bld) [Mass/Vol] 12.4 g/dL 13.0-16.5 [facility] Work Phone: Blood lymphocytes/100 leukoc yteson 05-05-2021 Lymphocytes/100 WBC (Bld) 18.6 % 19-41 [facility] Work Phone: Blood monocytes/100 leukocyt eson 05-05-2021 Monocytes/100 WBC (Bld) 9.5 % 0-[address] [facility] Work Phone: Blood platelet mean volumeon 05-05-2021 Platelet mean volume (Bld) [Entitic vol] 11.0 fL 6.2-12.0 [facility] Work Phone: Determination of erythrocyte mean corpuscular volume (MCV)on 05-05-2021 MCV (RBC) [Entitic vol] 93.6 fL 80-[address] [facility] Work Phone: Glucose Glucometer (BldC) [M ass/Vol]on 05-05-2021 Glucose [Mass/Vol] 183 mg/dL 74-106 [facility] Work Phone: Comment on above: MANAGEMENT OF PATIEN T CARE PER NURSING PROTOCOL Hematocrit Auto (Bld) [Volum e fraction]on 05-05-2021 Hematocrit (Bld) [Volume fraction] 36.3 % 40-54 [facility] Work Phone: Laboratory - Chemistry and C hemistry - challengeon 05-05-2021 CO2 [Moles/Vol] 29.0 mmol/L 21.0-32.0 [facility] Work Phone: Urea nitrogen/Creatinine [Mass ratio] 6.7 mg/mg 10-20 [facility] Work Phone: [phone] Laboratory - Hematology and Cell countson 05-05-2021 Erythrocyte distribution width (RBC) [Entitic vol] 47.8 fL 35.1-43.9 [facility] Work Phone: [phone] Erythrocyte distribution width (RBC) [Ratio] 13.9 % 11.6-14.6 [facility] Work Phone: [phone] Immature granulocytes/100 WBC (Bld) 0.300 % 0.0-0.9 [facility] Work Phone: [phone] Comment on above: IG% - Immature Granu locytes (promyelocytes, myelocytes and metamyelocytes) > 1% indicates that a LEFT SHIFT is Present. MCH (RBC) [Entitic mass] 32.0 pg 27.0-32.0 [facility] Work Phone: [phone] Nucleated RBC/100 WBC (Bld) [Ratio] 0 % 0-5 [facility] Work Phone: [phone] MCHC Auto (RBC) [Mass/Vol]on 05-05-2021 MCHC (RBC) [Mass/Vol] 34.2 g/dL 32-36 [facility] Work Phone: No Panel Informationon 05-05 Estimated Creatinine Clearance Calc 79.39 ml/min [facility] Work Phone: [phone] Estimated GFR (MDRD) Amer 94 mL/min >60 [facility] Work Phone: [phone] Comment on above: GFR Calc Estimated GFR (MDRD) Non-Af Amer 78 mL/min >60 [facility] Work Phone: [phone] Comment on above: Non- GFR Calc Platelets bldon 05-05-2021 Platelets (Bld) [#/Vol] 192 10*3/uL 150-450 [facility] Work Phone: [phone] Serum or plasma calcium luciana urement (mass/volume)on 05-05-2021 Calcium [Mass/Vol] 8.1 mg/dL 8.5-10.1 [facility] Work Phone: [phone] Serum or plasma creatinine m easurement (mass/volume)on 05-05-2021 Creatinine [Mass/Vol] 1.04 mg/dL 0.70-1.30 [facility] Work Phone: Comment on above: The validity of the calculated GFR & GFRAA in patients over 70 years has not been determined. Clinical correlation is essential. Serum or plasma urea nitroge n measurement (mass/volume)on 05-05-2021 Urea nitrogen [Mass/Vol] 7 mg/dL 7-18 [facility] Work Phone: Thin prep Papanicolaou smear with manual screeningon 05-05-2021 Thin prep Papanicolaou smear with manual screening 4 5-15 [facility] Work Phone: Absolute lymphocyte counton 05-04-2021 Lymphocytes Auto (Unsp spec) [#/Vol] 0.91 10*3/uL 0.83-4.51 [facility] Work Phone: Basophil percentageon 2021 Basophils/100 WBC (Bld) 0.7 % 0-1 [facility] Work Phone: Chloride [Moles/Vol] 100 mmol/L 98-107 [facility] Work Phone: Eosinophils/100 WBC (Bld) 0.7 % 0-5 [facility] Work Phone: Glucose [Mass/Vol] 122 mg/dL 74-106 [facility] Work Phone: Comment on above: Fasting Glucose resu lt from 100 to 125 mg/dL suggests IMPAIRED HOMEOSTASIS per A.D.A. criteria. Neutrophils (Bld) [#/Vol] 8.5 10*3/uL 2.0-7.7 [facility] Work Phone: Neutrophils/100 WBC (Bld) 81.1 % 47-70 [facility] Work Phone: Potassium [Moles/Vol] 2.9 mmol/L 3.5-5.1 [facility] Work Phone: Sodium [Moles/Vol] 139 mmol/L 136-145 [facility] Work Phone: WBC (Bld) [#/Vol] 10.5 10*3/uL 4.4-11.0 [facility] Work Phone: Blood erythrocytes count (nu mber/volume)on 05-04-2021 RBC (Bld) [#/Vol] 4.37 10*6/uL 4.6-6.2 [facility] Work Phone: Blood hemoglobin measurement (mass/volume)on 05-04-2021 Hemoglobin (Bld) [Mass/Vol] 14.1 g/dL 13.0-16.5 [facility] Work Phone: [phone] Blood lymphocytes/100 leukoc yteson 05-04-2021 Lymphocytes/100 WBC (Bld) 8.7 % 19-41 [facility] Work Phone: [phone] Blood monocytes/100 leukocyt eson 05-04-2021 Monocytes/100 WBC (Bld) 8.4 % 0-[address] [facility] Work Phone: Blood platelet mean volumeon 05-04-2021 Platelet mean volume (Bld) [Entitic vol] 11.4 fL 6.2-12.0 [facility] Work Phone: Determination of erythrocyte mean corpuscular volume (MCV)on 05-04-2021 MCV (RBC) [Entitic vol] 96.1 fL 80-[address] [facility] Work Phone: Hematocrit Auto (Bld) [Volum e fraction]on 05-04-2021 Hematocrit (Bld) [Volume fraction] 42.0 % 40-54 [facility] Work Phone: Laboratory - Chemistry and C hemistry - challengeon 05-04-2021 Magnesium [Mass/Vol] 1.7 mg/dL 1.6-2.6 [facility] Work Phone: CO2 [Moles/Vol] 32.0 mmol/L 21.0-32.0 [facility] Work Phone: [phone] Urea nitrogen/Creatinine [Mass ratio] 4.8 mg/mg 10-20 [facility] Work Phone: [phone] Laboratory - Hematology and Cell countson 05-04-2021 Erythrocyte distribution width (RBC) [Entitic vol] 49.2 fL 35.1-43.9 [facility] Work Phone: [phone] Erythrocyte distribution width (RBC) [Ratio] 14.0 % 11.6-14.6 [facility] Work Phone: [phone] Immature granulocytes/100 WBC (Bld) 0.400 % 0.0-0.9 [facility] Work Phone: [phone] Comment on above: IG% - Immature Granu locytes (promyelocytes, myelocytes and metamyelocytes) > 1% indicates that a LEFT SHIFT is Present. MCH (RBC) [Entitic mass] 32.3 pg 27.0-32.0 [facility] Work Phone: [phone] Nucleated RBC/100 WBC (Bld) [Ratio] 0 % 0-5 [facility] Work Phone: [phone] MCHC Auto (RBC) [Mass/Vol]on 05-04-2021 MCHC (RBC) [Mass/Vol] 33.6 g/dL 32-36 [facility] Work Phone: [phone] Panel Informationon 05-04 Troponin I High Sensitivity 38 pg/mL 3.0-78.0 [facility] Work Phone: [phone] Comment on above: Please Note: New Kelly t Units and Gender Specific Reference Ranges. For more information see Policy Stat Procedure [place] High Sensitivity Troponin (TNIH) and attachments. Estimated Creatinine Clearance Calc 68.19 ml/min [facility] Work Phone: [phone] Estimated GFR (MDRD) Amer 76 mL/min >60 [facility] Work Phone: [phone] Comment on above: GFR Calc Estimated GFR (MDRD) Non-Af Amer 63 mL/min >60 [facility] Work Phone: [phone] Comment on above: Non- GFR Calc Troponin I High Sensitivity 42 pg/mL 3.0-78.0 [facility] Work Phone: [phone] Comment on above: Please Note: New Kelly t Units and Gender Specific Reference Ranges. For more information see Policy Stat Procedure [place] High Sensitivity Troponin (TNIH) and attachments. Platelets bldon 05-04-2021 Platelets (Bld) [#/Vol] 240 10*3/uL 150-450 [facility] Work Phone: Serum or plasma calcium luciana urement (mass/volume)on 05-04-2021 Calcium [Mass/Vol] 8.8 mg/dL 8.5-10.1 [facility] Work Phone: Serum or plasma creatinine m easurement (mass/volume)on 05-04-2021 Creatinine [Mass/Vol] 1.25 mg/dL 0.70-1.30 [facility] Work Phone: Comment on above: The validity of the calculated GFR & GFRAA in patients over 70 years has not been determined. Clinical correlation is essential. Serum or plasma urea nitroge n measurement (mass/volume)on 05-04-2021 Urea nitrogen [Mass/Vol] 6 mg/dL 7-18 [facility] Work Phone: Thin prep Papanicolaou smear with manual screeningon 05-04-2021 Thin prep Papanicolaou smear with manual screening 7 5-15 [facility] Work Phone: LABORATORYOrdered By: Mercedes Chun on 05-02-2021 Blood Glucose Interventions Notify physician (05/02/21 3:24 PM) [facility] Work Phone: Blood Glucose Testing Reason Routine (05/02/21 3:24 PM) [facility] Work Phone: Glucose [Mass/Vol] 231 mg/dL Invalid Interpretation Code 70 - 110 mg/dL [facility] Work Phone: Blood Glucose Testing Reason Routine (05/02/21 2:40 PM) [facility] Work Phone: Glucose [Mass/Vol] 75 mg/dL Invalid Interpretation Code 70 - 110 mg/dL [facility] Work Phone: Time of Stated Blood Glucose [id number] [facility] Work Phone: Blood Glucose Interventions Notify physician (05/02/21 1:40 PM) [facility] Work Phone: Blood Glucose Testing Reason Routine (05/02/21 1:40 PM) [facility] Work Phone: Glucose [Mass/Vol] 355 mg/dL Invalid Interpretation Code 70 - 110 mg/dL [facility] Work Phone: LABORATORYOrdered By: Rodrigo Tobar on [...] Urine SS UA Specimen Type Clean Catch (3/25/22 1:30 PM) Invalid Interpretation Code AO Auto [...] blood sugar, Notify physician (05/02/21 2:40 PM) [facility] Work Phone: LABORATORYOrdered By: Ade Marion [...] Invalid Interpretation Code 211 - 911 pg/mL ADM SS Folate [Mass/Vol] 14.99 ng/mL Invalid Interpretation Code 5.38 - 24.00 ng/mL AH ADM SS GFR 83 ml/min/1.73sqm Invalid Interpretation Code AO Chemistry S GFR Non- 69 ml/min/1.73sqm Invalid Interpretation Code AO Chemistry S EMERGENCY REPORTon 8 EMERGENCY REPORT [facility] EMERGENCY ROOM REPORT NAME ACCOUNT SEX AGE ADMIT DISCHARGE PT MED. RECORD# NUMBER DATE DATE TYPE GERRI [id number] M 57 11/09/17 3 KIMBERLY [id number] ROOM: ER DATE OF : 1960 DICTATING [...] has also had heart disease with previous NE. Apparently, he does have a pacemaker in [...] Dr. Brock, who will arrange transfer to [place]. Dictated By: Bandar Daigle MD 11/09/17 15:22 JOB #: [id number] Transcribed By: am 11/09/17 15:30 Electronically signed by: YO Daigle M.D. 11/17/17 07:38 Page 2 of 2 KIMBERLY MELENDREZ Emergency Room Report Normal [facility] ALCOHOL-BLOOD MEDICALon 10-0 Ethanol mass conc 212 mg/dL High 0 - 50 [facility] Comment on above: Performed By: #### 2 [id number] ####[facility],[address] [place] [address] CBCon 11-09-2017 Basophils Auto #/vol (Bld) 0.20 x10EE3/UL High 0.00 - 0.10 [facility] Comment on above: Performed By: #### 2 14725 ####[facility],[address] [place] [address] Basophils/100 WBC Auto (Bld) 2.8 % High 0.0 - 2.0 [facility] Comment on above: Performed By: #### 2 [id number] ####[facility],[address] [place] [address] 45298 CBC Normal [facility] Comment on above: Result Comment: CBC- COMPLETE BLOOD COUNT Performed By: #### 2 15883 ####[facility],[address] [place] [address] 54035 Eosinophils Auto #/vol (Bld) 0.20 x10EE3/UL Normal 0.00 - 0.50 [facility] Comment on above: Performed By: #### 2 65043 ####[facility],[address] [place] [address] 59355 Eosinophils/100 WBC Auto (Bld) 2.6 % Normal 0.0 - 7.0 [facility] Comment on above: Performed By: #### 2 63174 ####[facility],[address] [place] [address] 13175 Erythrocyte distribution width Auto Ratio (RBC) 14.5 % Normal 12.0 - 15.6 [facility] Comment on above: Performed By: #### 2 05070 ####[facility],[address] [place] [address] 43729 Hematocrit Auto Volume Fraction (Bld) 38.9 % Low 40.0 - 52.0 [facility] Comment on above: Performed By: #### 2 01465 ####[facility],[address] [place] [address] 02133 Hemoglobin mass conc (Bld) 13.0 g/dL Normal 13.0 - 17.5 [facility] Comment on above: Performed By: #### 2 31832 ####[facility],[address] [place] [address] 06343 Lymphocytes Auto #/vol (Bld) 2.10 x10EE3/UL Normal 0.80 - 2.80 [facility] Comment on above: Performed By: #### 2 50874 ####[facility],[address] [place] [address] 46356 Lymphocytes/100 WBC Auto (Bld) 29.8 % Normal 20.0 - 45.0 [facility] Comment on above: Performed By: #### 2 73852 ####[facility],[address] [place] [address] MANUAL DIFF N/A Normal [facility] Comment on above: Performed By: #### 2 49451 ####[facility],[address] [place] [address] MCH Auto Entitic mass (RBC) 31 pg Normal 27 - 33 [facility] Comment on above: Performed By: #### 2 82367 ####[facility],[address] [place] [address] MCHC Auto mass conc (RBC) 33 X10 3 Normal 32 - 36 [facility] Comment on above: Performed By: #### 2 28893 ####[facility],[address] [place] [address] MCV Auto Entitic volume (RBC) 94 fL Normal 81 - 98 [facility] Comment on above: Performed By: #### 2 43850 ####[facility],[address] [place] [address] Monocytes Auto #/vol (Bld) 0.60 x10EE3/UL Normal 0.20 - 1.00 [facility] Comment on above: Performed By: #### 2 56279 ####[facility],[address] [place] [address] MONOS % 8.9 % Normal 0.0 - 10.0 [facility] Comment on above: Performed By: #### 2 30864 ####[facility],[address] [place] [address] Morphology Interp Jose Carlos (Bld) N/A Normal [facility] Comment on above: Result Comment: {CD] Performed By: #### 2 60085 ####[facility],[address] [place] [address] Neutrophils Auto #/vol (Bld) 3.90 x10EE3/UL Normal 1.50 - 7.10 [facility] Comment on above: Performed By: #### 2 50124 ####[facility],[address] [place] [address] 09949 Neutrophils/100 WBC Auto (Bld) 55.9 % Normal 46.0 - 76.0 [facility] Comment on above: Performed By: #### 2 29082 ####[facility],[address] [place] [address] 31778 Platelet mean volume Auto Entitic volume (Bld) 9.2 fL Normal 6.4 - 10.5 [facility] Comment on above: Result Comment: AUTO MATED DIFFERENTIAL Performed By: #### 2 98195 ####[facility],[address] [place] [address] 61077 Platelets Auto #/vol (Bld) 225 x10EE3/UL Normal 150 - 450 [facility] Comment on above: Performed By: #### 2 33776 ####[facility],[address] [place] [address] 94754 RBC Auto #/vol (Bld) 4.15 x 10EE6/UL Low 4.50 - 6.0 0 [facility] Comment on above: Performed By: #### 2 16364 ####[facility],[address] [place] [address] 17987 WBC Auto #/vol (Bld) 7.0 x 10EE3/UL Normal 4.5 - 10.8 [facility] Comment on above: Performed By: #### 2 87529 ####[facility],[address] [place] [address] 76722 CHEST 1 VIEWon 11-09-2017 CHEST 1 VIEW [place] [address] Patient: KIMBERLY MELENDREZ Phone#: : 1960 Age: 57 Gender: M Pt. Type: ER Account: [id number] Location: [id number] Ordering: BANDAR DAIGLE Exam Date: 11/09/2017/12:50 Family Phys: Charge Code: [id number] Physician: Stearns Order #: [id number] [id number] Dose#: PROCEDURE: X-RAY CHEST 1 VIEW [...] Arevalo MD on 11/09/2017 at 13:07 Normal [facility] CMP with eGFRon 11-09-2017 Age Reported 57 years Normal [facility] Comment on above: Performed By: #### 2 86828 ####[facility],[address] [place] [address] 77953 Albumin mass conc 3.9 g/dL Normal 3.4 - 4.8 [facility] Comment on above: Performed By: #### 2 24254 ####[facility],[address] [place] [address] 92212 Albumin/Globulin mass ratio 1.4 {ratio} Normal 0.9 - 1.6 [facility] Comment on above: Performed By: #### 2 38802 ####[facility],[address] [place] [address] 54183 ALK PHOS 113 U/L Normal 38 - 126 [facility] Comment on above: Performed By: #### 2 70876 ####[facility],[address] [place] [address] 56881 ALT/SGPT 66 U/L High 10 - 40 [facility] Comment on above: Performed By: #### 2 64141 ####[facility],[address] [place] [address] 61413 Anion gap 3 molar conc 11 mmol/L Normal 10 - 20 [facility] Comment on above: Performed By: #### 2 40707 ####[facility],[address] [place] [address] 39994 AST/SGOT 41 U/L High 13 - 39 [facility] Comment on above: Performed By: #### 2 89658 ####[facility],[address] [place] [address] 58396 B/C RATIO 15 ratio Normal 0 - 30 [facility] Comment on above: Performed By: #### 2 62487 ####[facility],[address] [place] [address] 54971 Bilirubin mass conc 0.3 mg/dL Normal 0.0 - 1.5 [facility] Comment on above: Performed By: #### 2 77699 ####[facility],[address] [place] [address] 57752 Calcium mass conc 8.6 mg/dL Normal 8.6 - 10.2 [facility] Comment on above: Performed By: #### 2 37956 ####[facility],[address] [place] [address] 47181 Chloride molar conc 100 mmol/L Normal 98 - 107 [facility] Comment on above: Performed By: #### 2 51808 ####[facility],[address] [place] [address] 14420 CO2 molar conc 26.3 mmol/L Normal 21.0 - 31.0 [facility] Comment on above: Performed By: #### 2 74316 ####[facility],[address] [place] [address] 00992 Creatinine mass conc 1.1 mg/dL Normal 0.7 - 1.3 [facility] Comment on above: Performed By: #### 2 68132 ####[facility],[address] [place], [place] [id number] GFR/1.73 sq M predicted among non-blacks MDRD vol rate/area (S/P/Bld) mL/min/{1.73_m2} Normal 60 - 999 [facility] Comment on above: Performed By: #### 2 57876 ####[facility],[address] [place] [address] 67277 Result Comment: ACCO RDING TO THE NATIONAL KIDNEY DISEASE EDUCATION PROGRAM(NKDE), A NORMAL eGFRIS A VALUE GREATER THAN OR EQUAL TO 60 ML/MIN/1.73 SQ METERS.CHRONIC KIDNEY DISEASE: <60mL/MIN/1.73 SQ METERSKIDNEY FAILURE: <15mL/MIN/1.73 SQ METERSTHIS TEST SHOULD ONLY BE USED FOR PATIENTS 18 YEARS OF AGE AND OLDER. GFR/1.73 sq M predicted among non-blacks MDRD vol rate/area (S/P/Bld) Normal [facility] Comment on above: Result Comment: COMP REHENSIVE METABOLIC PANEL Performed By: #### 2 21687 ####[facility],[address] [place] [address] 70016 Globulin Calculated mass conc (S) 2.7 g/dL Normal 1.5 - 3.8 [facility] Comment on above: Performed By: #### 2 93895 ####[facility],[address] [place] [address] 40174 Glucose mass conc 600 mg/dL Critically high 74 - 106 [facility] Comment on above: Result Comment: { CA LLED TO Bernadette/1330{ READ BACK BY [id number]/h/lm Performed By: #### 2 72692 ####[facility],[address] [place] [address] 12977 Potassium molar conc 4.1 mmol/L Normal 3.5 - 5.1 [facility] Comment on above: Performed By: #### 2 99914 ####[address] [address] Protein mass conc 6.6 g/dL Normal 6.4 - 8.3 [facility] Comment on above: Performed By: #### 2 73299 ####[facility],[address] [place] [address] 35581 Sodium molar conc 133 mmol/L Low 136 - 145 [facility] Comment on above: Performed By: #### 2 49465 ####[facility],[address] [place] [address] 75163 Urea nitrogen mass conc 17 mg/dL Normal 6 - 20 [facility] Comment on above: Performed By: #### 2 97700 ####[facility],[address] [place] [address] 70903 DRUG SCREEN URINE MEDICon AMPHETAMINES Negative [facility] Comment on above: Performed By: #### 2 63787 ####[facility],[address] [place] [address] 94789 B-DIAZEPINES Negative Normal [facility] Comment on above: Performed By: #### 2 16824 ####[facility],[address] [place] [address] 50320 BARBITURATES Negative Normal [facility] Comment on above: Performed By: #### 2 42212 ####[facility],[address] [place] [address] 86203 COCAINE Negative Normal [facility] Comment on above: Performed By: #### 2 76617 ####[facility],[address] [place] [address] 26351 DRUG SCREEN URINE MEDIC Normal [facility] Comment on above: Result Comment: DRUG SCREEN - URINE Performed By: #### 2 39180 ####[facility],[address] [place] [address] 98213 METHADONE Negative [facility] Comment on above: Performed By: #### 2 73239 ####[facility],[address] [place] [address] 70645 OPIATES Negative Normal [facility] Comment on above: Performed By: #### 2 60668 ####[facility],[address] [place] [address] 42061 PCP Negative Normal [facility] Comment on above: Performed By: #### 2 81741 ####[facility],[address] [place] [address],[facility] 26729 TCA Negative Normal [facility] Comment on above: Performed By: #### 2 12192 ####[facility],[address] [place] [address] 24570 THC Negative Normal [facility] Comment on above: Result Comment: CHARLEY ENTS RECEIVING PROTON PUMP INHIBITORS MAY DEMONSTRATE FALSE POSITIVETHC/CANNABINOID RESULTS. AN ALTERNATIVE CONFIRMATORY METHOD SHOULD BE CONSIDEREDTO VERIFY POSITIVE RESULTS. Performed By: #### 2 83176 ####[facility],[address] [place] [address] HGB A1Con 11-09-2017 Hemoglobin A1c/Hemoglobin.total mass fraction (Bld) 12.0 % High 4.4 - 6.4 [facility] Comment on above: Result Comment: {HB] {A1] Performed By: #### 2 35287 ####[facility],[address] [place], [place] [id number] HISTORY AND PHYSICALon 11-09 HISTORY AND PHYSICAL [facility] HISTORY & PHYSICAL NAME ACCOUNT SEX AGE ADMIT DISCHARGE PT MED. RECORD# NUMBER DATE DATE TYPE GERRI [id number] M 57 11/09/17 3 KIMBERLY [id number] ROOM: ER DATE OF : 64 DICTATING PHYSICIAN: Kye Brock The patient is seen in the emergency department at [facility] on November 09 and is transferred to [facility]. CHIEF COMPLAINT: Intoxication. HISTORY OF [...] Crisis Center. He is being sent to [facility] for further treatment and alcohol [...] proper withdraw policy. I will transfer to [facility] to my service where we may apply the [facility] Withdrawal Assessment protocol and properly detoxify him. Once he is no longer under the influence, Crisis will be asked to see him at that time. It would not be inappropriate to call them in with his present state. Dictated By: Kye Brock MD 11/09/17 16:19 JOB #: [id number] Transcribed By: jessica 11/09/17 16:51 Electronically signed by: Al Brock M.D. 11/09/17 20:19 Update to H&P: [ ] No changes: I have examined the patient and reviewed the H&P and there are no changes. [ ] As previously dictated with the following changes: PHYSICIAN SIGNATURE: __ TIME: DATE: Page 2 of 3 KIMBERLY MELENDREZ History & Physical Normal [facility] KETONE, BLOOD, QUALon 2017 KETONES Negative Normal ORIN - NEGATIVE [facility] Comment on above: Result Comment: SPEC IMEN SERUM Performed By: #### 2 43063 ####[facility],[address] [place], [place] [id number] LACTATEon 11-09-2017 Lactate molar conc 14.5 mg/dL Normal 4.5 - 18.0 [facility] Comment on above: Performed By: #### 2 24998 ####[facility],[address] [place] [address] 62127 Lactate molar conc 18.5 mg/dL High 4.5 - 18.0 [facility] Comment on above: Performed By: #### 2 81570 ####[facility],[address] [place], [place] [id number] TROPONINon 11-09-2017 Troponin I.cardiac mass conc 0.01 ng/mL Normal 0.00 - 0.05 [facility] Comment on above: Result Comment: Elev ated [...] as heterophile antibodies). Performed By: #### 2 72529 ####[place] [address] Troponin I.cardiac mass conc 0.01 ng/mL Normal 0.00 - 0.05 [facility] Comment on above: Result Comment: Elev ated [...] as heterophile antibodies). Performed By: #### 2 98683 ####[place] [address] URINALYSISon 11-09-2017 Bilirubin Negative Normal NORMAL: NEGATIVE [facility] Comment on above: Performed By: #### 2 17879 ####[place] [address] Blood Negative Normal NORMAL: NEGATIVE [facility] Comment on above: Performed By: #### 2 47682 ####[place] [address] Clarity clear Normal NORMAL: CLEAR [facility] Comment on above: Performed By: #### 2 71926 ####[place] [address] Color p.yel Normal NORMAL: YELLOW [facility] Comment on above: Performed By: #### 2 70722 ####[facility],[address] [place] [address],[facility] [address] Glucose 1000 Abnormal NORMAL: NORMAL [facility] Comment on above: Performed By: #### 2 04976 ####[facility],[address] [place] [address],[facility] [address] Ketone Negative Normal NORMAL: NEGATIVE [facility] Comment on above: Performed By: #### 2 92895 ####[facility],[address] [place] [address],[facility] 45256 Leukocytes Negative Normal NORMAL: NEGATIVE [facility] Comment on above: Performed By: #### 2 36413 ####[facility],[address] [place] [address],[facility] 25041 Microscopic NOT INDICATED Normal [facility] Comment on above: Performed By: #### 2 98972 ####[facility],[address] [place] [address] 32538 Nitrite Negative Normal NORMAL: NEGATIVE [facility] Comment on above: Performed By: #### 2 50094 ####[facility],[address] [place] [address] 17114 ph 6 Normal NORMAL: 5.0-8.0 [facility] Comment on above: Performed By: #### 2 60573 ####[facility],[address] [place] [address] 10820 Protein mass conc Negative Normal NORMAL: NEGATIVE [facility] Comment on above: Performed By: #### 2 06080 ####[facility],[address] [place] [address] 97460 Sp [place] 1.010 Normal NORMAL: 1.010-1.030 [facility] Comment on above: Performed By: #### 2 82968 ####[facility],[address] [place] [address] 61645 Specimen type UNSPECIFIED Normal [facility] Comment on above: Performed By: #### 2 77565 ####[facility],[address] [place], [place] [id number] Urobilinog NORM Normal NORMAL: NORMAL [facility] Comment on above: Performed By: #### 2 66398 ####[facility],[address] [place], [place] [id number] Vital Signs Date Time Vital Sign Value Performing Clinician Facility 08-29-2024 00:00-0400 Body temperature 97.8 [degF] Dr. Rolan Romero DO Work Phone: 6(399)927-849188 [place] [address] 08-29-2024 00:00-0400 Diastolic blood pressure 99 mm[Hg] Dr. Rolan Romero DO Work Phone: 3(222)812-427488 [place] [address] 08-29-2024 00:00-0400 Heart rate 108 /min Dr. Rolan Romero DO Work Phone: 9(461)209-396988 [place] [address] 08-29-2024 00:00-0400 Respiratory rate 18 /min Dr. Rolan Romero DO Work Phone: 1(229)818-912488 [place] [address] 08-29-2024 00:00-0400 SaO2% (BldA) [Mass fraction] 96 % Dr. Rolan Romero DO Work Phone: 1(307)301-417888 [place] [address] 08-29-2024 00:00-0400 Systolic blood pressure 130 mm[Hg] Dr. Rolan Romero DO Work Phone: 3(894)789-771815 [place] [address] 08-28-2024 21:27-0400 Inhaled oxygen concentration 40 % Dr. Rolan Romero DO Work Phone: 4(374)971-668115 [place] [address] 08-28-2024 21:27-0400 Inhaled oxygen flow rate 8 L/min Dr. Rolan Romero DO Work Phone: 5(695)556-321188 [place] [address] 08-28-2024 17:46-0400 Body height 180.[address] Rolan Romero DO Work Phone: [facility] 08-28-2024 17:46-0400 Body mass index (BMI) [Ratio] 20.4 kg/m2 Dr. Rolan Romero DO Work Phone: [facility] 08-28-2024 17:46-0400 Body weight 66.[address] Rolan Romero DO Work Phone: [facility] 08-03-2024 08:48-0400 Heart rate 86 /min No Primary Care Physician [facility] 08-03-2024 08:46-0400 Body temperature 97.7 [degF] No Primary Care Physician [facility] 08-03-2024 08:46-0400 Diastolic blood pressure 98 mm[Hg] No Primary Care Physician [facility] 08-03-2024 08:46-0400 Respiratory rate 16 /min No Primary Care Physician [facility] 08-03-2024 08:46-0400 SaO2% (BldA) [Mass fraction] 97 % No Primary Care Physician [facility] 08-03-2024 08:46-0400 Systolic blood pressure 127 mm[Hg] No Primary Care Physician [facility] 08-03-2024 05:38-0400 Body mass index (BMI) [Ratio] 20.6 kg/m2 No Primary Care Physician [facility] 08-03-2024 05:38-0400 Body weight 67 kg No Primary Care Physician [facility] 08-02-2024 11:29-0400 Body height 180.34 cm No Primary Care Physician [facility] 08-01-2024 21:00-0400 Body temperature 97.9 [degF] No Primary Care Physician [facility] 08-01-2024 21:00-0400 Diastolic blood pressure 76 mm[Hg] No Primary Care Physician [facility] 08-01-2024 21:00-0400 Heart rate 102 /min No Primary Care Physician [facility] 08-01-2024 21:00-0400 Respiratory rate 18 /min No Primary Care Physician [facility] 08-01-2024 21:00-0400 SaO2% (BldA) [Mass fraction] 99 % No Primary Care Physician [facility] 08-01-2024 21:00-0400 Systolic blood pressure 109 mm[Hg] No Primary Care Physician [facility] 08-01-2024 20:30-0400 Inhaled oxygen flow rate 2 L/min No Primary Care Physician [facility] 08-01-2024 19:38-0400 Body mass index (BMI) [Ratio] 21.7 kg/m2 No Primary Care Physician [facility] 08-01-2024 19:38-0400 Body weight 70.7 kg No Primary Care Physician [facility] 08-01-2024 12:33-0400 Body height 180.34 cm No Primary Care Physician [facility] 07-14-2024 09:45-0400 Heart rate 79 /min No Primary Care Physician [facility] 07-14-2024 07:55-0400 Body temperature 98.7 [degF] No Primary Care Physician [facility] 07-14-2024 07:55-0400 Diastolic blood pressure 84 mm[Hg] No Primary Care Physician [facility] 07-14-2024 07:55-0400 Respiratory rate 16 /min No Primary Care Physician [facility] 07-14-2024 07:55-0400 SaO2% (BldA) [Mass fraction] 95 % No Primary Care Physician [facility] 07-14-2024 07:55-0400 Systolic blood pressure 122 mm[Hg] No Primary Care Physician [facility] 07-14-2024 03:30-0400 Body mass index (BMI) [Ratio] 20.1 kg/m2 No Primary Care Physician [facility] 07-14-2024 03:30-0400 Body weight 65.6 kg No Primary Care Physician [facility] 07-12-2024 14:49-0400 Body height 180.34 cm No Primary Care Physician [facility] 07-11-2024 15:00-0400 Diastolic blood pressure 98 mm[Hg] No Primary Care Physician [facility] 07-11-2024 15:00-0400 Heart rate 80 /min No Primary Care Physician [facility] 07-11-2024 15:00-0400 Respiratory rate 18 /min No Primary Care Physician [facility] 07-11-2024 15:00-0400 SaO2% (BldA) [Mass fraction] 98 % No Primary Care Physician [facility] 07-11-2024 15:00-0400 Systolic blood pressure 148 mm[Hg] No Primary Care Physician [facility] 07-11-2024 13:51-0400 Body temperature 98.6 [degF] No Primary Care Physician [facility] 07-11-2024 11:28-0400 Body height 180.34 cm No Primary Care Physician [facility] 07-11-2024 11:28-0400 Body mass index (BMI) [Ratio] 20.2 kg/m2 No Primary Care Physician [facility] 07-11-2024 11:28-0400 Body weight 65.81 kg No Primary Care Physician [facility] 07-06-2024 11:41-0400 Body temperature 97.6 [degF] No Primary Care Physician [facility] 07-06-2024 11:41-0400 Diastolic blood pressure 81 mm[Hg] No Primary Care Physician [facility] 07-06-2024 11:41-0400 Heart rate 60 /min No Primary Care Physician [facility] 07-06-2024 11:41-0400 Respiratory rate 16 /min No Primary Care Physician [facility] 07-06-2024 11:41-0400 SaO2% (BldA) [Mass fraction] 93 % No Primary Care Physician [facility] 07-06-2024 11:41-0400 Systolic blood pressure 142 mm[Hg] No Primary Care Physician [facility] 07-06-2024 04:52-0400 Body mass index (BMI) [Ratio] 20.4 kg/m2 No Primary Care Physician [facility] 07-06-2024 04:52-0400 Body weight 66.4 kg No Primary Care Physician [facility] 07-04-2024 14:00-0400 Inhaled oxygen flow rate 2 L/min No Primary Care Physician [facility] 07-04-2024 11:32-0400 Body height 180.34 cm No Primary Care Physician [facility] 06-28-2024 14:10-0400 Body temperature 98 [degF] No Primary Care Physician [facility] 06-28-2024 14:10-0400 Diastolic blood pressure 75 mm[Hg] No Primary Care Physician [facility] 06-28-2024 14:10-0400 Heart rate 82 /min No Primary Care Physician [facility] 06-28-2024 14:10-0400 Respiratory rate 18 /min No Primary Care Physician [facility] 06-28-2024 14:10-0400 SaO2% (BldA) [Mass fraction] 97 % No Primary Care Physician [facility] 06-28-2024 14:10-0400 Systolic blood pressure 102 mm[Hg] No Primary Care Physician [facility] 06-28-2024 11:20-0400 Body height 180.34 cm No Primary Care Physician [facility] 06-28-2024 11:20-0400 Body weight 74.9 kg No Primary Care Physician [facility] 06-28-2024 09:00-0400 Inhaled oxygen flow rate 2 L/min No Primary Care Physician [facility] 06-28-2024 03:35-0400 Body mass index (BMI) [Ratio] 23.1 kg/m2 No Primary Care Physician [facility] 06-25-2024 22:00-0400 Diastolic blood pressure 86 mm[Hg] No Primary Care Physician [facility] 06-25-2024 22:00-0400 Heart rate 118 /min No Primary Care Physician [facility] 06-25-2024 22:00-0400 Respiratory rate 20 /min No Primary Care Physician [facility] 06-25-2024 22:00-0400 SaO2% (BldA) [Mass fraction] 94 % No Primary Care Physician [facility] 06-25-2024 22:00-0400 Systolic blood pressure 138 mm[Hg] No Primary Care Physician [facility] 06-25-2024 21:38-0400 Body temperature 98.5 [degF] No Primary Care Physician [facility] 06-25-2024 16:17-0400 Body height 180.34 cm No Primary Care Physician [facility] 06-25-2024 16:17-0400 Body mass index (BMI) [Ratio] 26.6 kg/m2 No Primary Care Physician [facility] 06-25-2024 16:17-0400 Body weight 86.5 kg No Primary Care Physician [facility] 04-12-2024 09:41-0500 Diastolic blood pressure 110 mm[Hg] Vandana Edwards Work Phone: [facility] 04-12-2024 09:41-0500 Systolic blood pressure 172 mm[Hg] Vandana Edwards Work Phone: [facility] 04-12-2024 09:14-0500 Body mass index (BMI) [Ratio] 20.08 kg/m2 Vandana Edwards Work Phone: [facility] 04-12-2024 09:14-0500 Body temperature 97.11 [degF] Vandana Edwards Work Phone: [facility] 04-12-2024 09:14-0500 Body weight 65.32 kg Vandana Edwards Work Phone: [facility] 04-12-2024 09:14-0500 Heart rate 60 /min Vandana Edwards Work Phone: [facility] 04-12-2024 09:14-0500 SaO2% (BldA) [Mass fraction] 98 % Vandana Edwards Work Phone: [facility] 04-05-2024 13:20-0500 Diastolic blood pressure 75 mm[Hg] Phoebe Vazquez MD Work Phone: [facility] 04-05-2024 13:20-0500 Heart rate 65 /min Phoebe Vazquez MD Work Phone: [facility] 04-05-2024 13:20-0500 Respiratory rate 16 /min Phoebe Vazquez MD Work Phone: [facility] 04-05-2024 13:20-0500 SaO2% (BldA) [Mass fraction] 97 % Phoebe Vazquez MD Work Phone: [facility] 04-05-2024 13:20-0500 Systolic blood pressure 118 mm[Hg] Phoebe Vazquez MD Work Phone: [facility] 04-05-2024 13:00-0500 Body temperature 97 [degF] Phoebe Vazquez MD Work Phone: [facility] 04-05-2024 11:43-0500 Body height 180.3 cm Phoebe Vazquez MD Work Phone: [facility] 04-05-2024 11:43-0500 Body mass index (BMI) [Ratio] 20.22 kg/m2 Phoebe Vazquez MD Work Phone: [facility] 04-05-2024 11:43-0500 Body weight 65.77 kg Phoebe Vazquez MD Work Phone: [facility] 12-27-2023 14:12-0500 Body height 180.3 cm Marianna Queden WAXER OPERATOR.[employer] OPERATOR Work Phone: [facility] 12-27-2023 14:12-0500 Body mass index (BMI) [Ratio] 18.97 kg/m2 Marianna Queden WAXER OPERATOR.GAME[employer] OPERATOR Work Phone: [facility] 12-27-2023 14:12-0500 Body temperature 97.81 [degF] Marianna Queden WAXER OPERATOR.GAMEWELL OPERATOR Work Phone: [facility] 12-27-2023 14:12-0500 Body weight 61.69 kg Marianna Queden WAXER OPERATOR.GAME[employer]LL OPERATOR Work Phone: [facility] 12-27-2023 14:12-0500 Diastolic blood pressure 70 mm[Hg] Marianna Queden WAXER OPERATOR.GAMEWELL OPERATOR Work Phone: [facility] 12-27-2023 14:12-0500 Heart rate 75 /min Marianna Queden WAXER OPERATOR.GAMEWELL OPERATOR Work Phone: [facility] 12-27-2023 14:12-0500 Respiratory rate 16 /min Marianna Queden WAXER OPERATOR.GAMEWELL OPERATOR Work Phone: [facility] 12-27-2023 14:12-0500 SaO2% (BldA) [Mass fraction] 100 % Marianna Queden WAXER OPERATOR.GAMEWELL OPERATOR Work Phone: [facility] 12-27-2023 14:12-0500 Systolic blood pressure 126 mm[Hg] Marianna Queden WAXER OPERATOR.GAMEWELL OPERATOR Work Phone: [facility] 12-24-2023 10:38-0500 Body height 180.3 cm Susana Hritz WAXER OPERATOR.GAME[employer]LL OPERATOR Work Phone: [facility] 12-24-2023 10:38-0500 Body mass index (BMI) [Ratio] 18.97 kg/m2 Susana Hritz WAXER OPERATOR.GAMEWELL OPERATOR Work Phone: [facility] 12-24-2023 10:38-0500 Body weight 61.69 kg Susana Hritz WAXER OPERATOR.GAME[employer]LL OPERATOR Work Phone: [facility] 12-24-2023 10:38-0500 Diastolic blood pressure 84 mm[Hg] Susana Hritz WAXER OPERATOR.GAMEWELL OPERATOR Work Phone: [facility] 12-24-2023 10:38-0500 Heart rate 70 /min Susana Hritz WAXER OPERATOR.GAMEWELL OPERATOR Work Phone: [facility] 12-24-2023 10:38-0500 Systolic blood pressure 132 mm[Hg] Susana Hritz WAXER OPERATOR.GAMEWELL OPERATOR Work Phone: [facility] 11-15-2023 10:50-0400 Body height 177.8 cm Vandanaariel Edwrads Work Phone: [facility] 11-15-2023 10:50-0400 Body mass index (BMI) [Ratio] 18.94 kg/m2 Vandana Edwards Work Phone: [facility] 11-15-2023 10:50-0400 Body temperature 97.7 [degF] Vandana Edwards Work Phone: [facility] 11-15-2023 10:50-0400 Body weight 59.88 kg Vandana Edwards Work Phone: [facility] 11-15-2023 10:50-0400 Diastolic blood pressure 105 mm[Hg] Vandana Edwards Work Phone: [facility] 11-15-2023 10:50-0400 Heart rate 106 /min Vandana Edwards Work Phone: [facility] 11-15-2023 10:50-0400 SaO2% (BldA) [Mass fraction] 98 % Vandana Edwards Work Phone: [facility] 11-15-2023 10:50-0400 Systolic blood pressure 141 mm[Hg] Vandana Edwards Work Phone: [facility] 10-30-2023 17:46-0400 Blood Pressure Location AN-NMARIE DILLON DO [facility] 10-30-2023 17:46-0400 Blood Pressure Method ANN-MARIE DILLON DO [facility] 10-30-2023 17:46-0400 Diastolic Blood Pressure Non-Invasive 94 mm[Hg] ANN-MARIE DILLON DO [facility] 10-30-2023 17:46-0400 Heart rate 64 /min ANN-MARIE DILLON DO [facility] 10-30-2023 17:46-0400 Reason For Taking VItal Signs ANN-MARIE DILLON DO [facility] 10-30-2023 17:46-0400 Respiratory rate 18 /min ANN-MARIE DILLON DO [facility] 10-30-2023 17:46-0400 Systolic Blood Pressure Non-Invasive 167 mm[Hg] ANN-MARIE DILLON DO [facility] 10-30-2023 17:24-0400 Blood Pressure Location ANN-MARIE DILLON DO [facility] 10-30-2023 17:24-0400 Blood Pressure Method ANN-MARIE DILLON DO [facility] 10-30-2023 17:24-0400 Diastolic Blood Pressure Non-Invasive 100 mm[Hg] ANN-MARIE DILLON DO [facility] 10-30-2023 17:24-0400 Heart rate 85 /min ANN-MARIE DILLON DO [facility] 10-30-2023 17:24-0400 Reason For Taking VItal Signs ANN-MARIE DILLON DO [facility] 10-30-2023 17:24-0400 Respiratory rate 14 /min ANN-MARIE DILLON DO [facility] 10-30-2023 17:24-0400 Systolic Blood Pressure Non-Invasive 200 mm[Hg] ANN-MARIE DILLON DO [facility] 10-30-2023 15:15-0400 Blood Pressure Location ANN-MARIE DILLON DO [facility] 10-30-2023 15:15-0400 Blood Pressure Method ANN-MARIE DILLON DO [facility] 10-30-2023 15:15-0400 Body temperature 98.24 [degF] ANN-MARIE DILLON DO [facility] 10-30-2023 15:15-0400 Body weight 63.6 kg ANN-MARIE DILLON DO [facility] 10-30-2023 15:15-0400 Diastolic Blood Pressure Non-Invasive 92 mm[Hg] ANN-MARIE DILLON DO [facility] 10-30-2023 15:15-0400 Heart rate 73 /min ANN-MARIE DILLON DO [facility] 10-30-2023 15:15-0400 Respiratory rate 14 /min ANN-MARIE DILLON DO [facility] 10-30-2023 15:15-0400 Systolic Blood Pressure Non-Invasive 156 mm[Hg] ANN-MARIE DILLON DO [facility] 10-14-2023 11:05-0400 Body height 180.3 cm Marianna Queden WAXER OPERATOR.[employer] OPER[employer] Work Phone: [facility] 10-14-2023 11:05-0400 Body mass index (BMI) [Ratio] 18.83 kg/m2 Marianna Queden WAXER OPERATOR.GAMEWELL OPERATOR Work Phone: [facility] 10-14-2023 11:05-0400 Body temperature 97.59 [degF] Marianna Queden WAXER OPERATOR.GAMEWELL OPERATOR Work Phone: [facility] 10-14-2023 11:05-0400 Body weight 61.24 kg Marianna Queden WAXER OPERATOR.[facility] Work Phone: [facility] 10-14-2023 11:05-0400 Diastolic blood pressure 70 mm[Hg] Marianna Queden WAXER OPERATOR.[facility] Work Phone: [facility] 10-14-2023 11:05-0400 Heart rate 60 /min Marianna Queden WAXER OPERATOR.[employer]AMEWELL OPERATOR Work Phone: [facility] 10-14-2023 11:05-0400 Respiratory rate 18 /min Marianna Queden WAXER OPERATOR.[facility] Work Phone: [facility] 10-14-2023 11:05-0400 SaO2% (BldA) [Mass fraction] 100 % Marianna Queden WAXER OPERATOR.GAMEWELL OPERATOR Work Phone: [facility] 10-14-2023 11:05-0400 Systolic blood pressure 122 mm[Hg] Marianna Queden WAXER OPERATOR.GAMEWELL OPERATOR Work Phone: [facility] 08-09-2023 13:11-0400 Body height 180.3 cm Marianna Queden WAXER OPERATOR.[facility] Work Phone: [facility] 08-09-2023 13:11-0400 Body mass index (BMI) [Ratio] 19.39 kg/m2 Marianna Queden WAXER OPERATOR.[facility] Work Phone: [facility] 08-09-2023 13:11-0400 Body temperature 99 [degF] Marianna Queden WAXER OPERATOR.GAMEWELL OPERATOR Work Phone: [facility] 08-09-2023 13:11-0400 Body weight 63.05 kg Marianna Ruizden WAXER OPERATOR.GAMEWELL OPERATOR Work Phone: [facility] 08-09-2023 13:11-0400 Diastolic blood pressure 76 mm[Hg] Marianna Saraden WAXER OPERATOR.GAMEWELL OPERATOR Work Phone: [facility] 08-09-2023 13:11-0400 Heart rate 98 /min Marianna Saraden WAXER OPERATOR.GAMEWELL OPERATOR Work Phone: [facility] 08-09-2023 13:11-0400 SaO2% (BldA) [Mass fraction] 99 % Marianna Queden WAXER OPERATOR.GAMEWELL OPERATOR Work Phone: [facility] 08-09-2023 13:11-0400 Systolic blood pressure 122 mm[Hg] Marianna Ruizden WAXER OPERATOR.GAMEWELL OPERATOR Work Phone: [facility] 05-20-2023 13:15-0400 Body temperature 97.7 [degF] 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 Andreas Pathak 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 Phone: [facility] 05-20-2023 13:15-0400 Diastolic blood pressure 73 mm[Hg] 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 Andreas Pathak 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 Phone: [facility] 05-20-2023 13:15-0400 Heart rate 74 /min 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 Andreas Pathak 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 Phone: [facility] 05-20-2023 13:15-0400 Respiratory rate 16 /min 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 Andreas Pathak 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 Phone: [facility] 05-20-2023 13:15-0400 SaO2% (BldA) [Mass fraction] 96 % 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 Andreas Pathak 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 Phone: [facility] 05-20-2023 13:15-0400 Systolic blood pressure 107 mm[Hg] 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 Andreas Pathak 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 Phone: [facility] 05-20-2023 06:00-0400 Body mass index (BMI) [Ratio] 25.8 kg/m2 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 Andreas Pathak 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 Phone: [facility] 05-20-2023 06:00-0400 Body weight 84.1 kg 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 Andreas Upshur 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 Phone: [facility] 05-18-2023 11:01-0400 Body height 180.34 cm 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 Andreas Pathak 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 Phone: [facility] 05-18-2023 07:20-0400 Inhaled oxygen flow rate 2 L/min 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 Andreas Pathak 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 Phone: [facility] 05-15-2023 11:10-0400 Inhaled oxygen concentration 25 % 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 Andreas Pathak 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 Phone: [facility] 05-09-2023 21:45-0400 Diastolic blood pressure 66 mm[Hg] 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 Andreas Pathak 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 Phone: [facility] 05-09-2023 21:45-0400 Heart rate 116 /min 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 Andreas Pathak 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 Phone: [facility] 05-09-2023 21:45-0400 Respiratory rate 20 /min 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 Andreas Pathak 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 Phone: [facility] 05-09-2023 21:45-0400 SaO2% (BldA) [Mass fraction] 94 % 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 Andreas Zo 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 Phone: [facility] 05-09-2023 21:45-0400 Systolic blood pressure 84 mm[Hg] 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 Andreas Pathak 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 Phone: [facility] 05-09-2023 21:44-0400 Body temperature 97.7 [degF] 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 Andreas Pathak 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 Phone: [facility] 05-09-2023 21:44-0400 Inhaled oxygen flow rate 2 L/min 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 Andreas Pathak 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 Phone: [facility] 05-09-2023 13:31-0400 Body height 180.34 cm 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 Andreas Pathak 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 Phone: [facility] 05-09-2023 13:31-0400 Body mass index (BMI) [Ratio] 23.8 kg/m2 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 Andreas Pathak 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 Phone: [facility] 05-09-2023 13:31-0400 Body weight 77.4 kg 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 Andreas Pathak 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 Phone: [facility] 04-27-2023 08:51-0400 Body temperature 98.8 [degF] 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 Andreas Pathak 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 Phone: [facility] 04-27-2023 08:51-0400 Diastolic blood pressure 78 mm[Hg] 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 Andreas Pathak 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 Phone: [facility] 04-27-2023 08:51-0400 Heart rate 98 /min 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 Andreas Pathak 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 Phone: [facility] 04-27-2023 08:51-0400 Respiratory rate 16 /min 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 Andreas Pathak 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 Phone: [facility] 04-27-2023 08:51-0400 SaO2% (BldA) [Mass fraction] 95 % 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 Andreas Pathak 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 Phone: [facility] 04-27-2023 08:51-0400 Systolic blood pressure 110 mm[Hg] 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 Andreas Pathak 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 Phone: [facility] 04-26-2023 14:44-0400 Body height 180.01 cm 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 Andreas Pathak 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 Phone: [facility] 04-26-2023 14:44-0400 Body weight 63.9 kg 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 Andreas Pathak 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 Phone: [facility] 04-22-2023 22:00-0400 Inhaled oxygen flow rate 2 L/min 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 Andreas Pathak 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 Phone: [facility] 04-20-2023 17:00-0400 Body mass index (BMI) [Ratio] 19.7 kg/m2 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 Andreas Pathak 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 Phone: [facility] 04-20-2023 16:05-0400 Body temperature 98.2 [degF] 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 Andreas Pathak 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 Phone: [facility] 04-20-2023 16:05-0400 Diastolic blood pressure 80 mm[Hg] 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 Andreas Pathak 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 Phone: [facility] 04-20-2023 16:05-0400 Heart rate 117 /min 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 Andreas Pathak 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 Phone: [facility] 04-20-2023 16:05-0400 Respiratory rate 16 /min 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 Andreas Pathak 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 Phone: [facility] 04-20-2023 16:05-0400 SaO2% (BldA) [Mass fraction] 100 % 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 Andreas Pathak 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 Phone: [facility] 04-20-2023 16:05-0400 Systolic blood pressure 143 mm[Hg] 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 Andreas Pathak 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 Phone: [facility] 04-20-2023 11:29-0400 Body height 180.34 cm 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 Andreas Pathak 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 Phone: [facility] 04-20-2023 11:29-0400 Body mass index (BMI) [Ratio] 19.6 kg/m2 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 Andreas Pathak 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 Phone: [facility] 04-20-2023 11:29-0400 Body weight 63.9 kg 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 Andreas Pathak 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 Phone: [facility] 03-19-2023 10:48-[address] Cuff Size DR MARIELY WAGNER MD [address] [place] [address] 03-19-2023 10:48-[address] MARIELY WAGNER MD [address] [place] [address] 03-19-2023 10:48-[address] MARIELY WAGNER MD [address] [place] [address] 03-19-2023 10:48-0500 Body temperature 97.34 [degF] DR MARIELY WAGNER MD [address] [place] [address] 03-19-2023 10:48-0500 Diastolic Blood Pressure Non-Invasive 94 mm[Hg] DR MARIELY WAGNER MD [address] [place] [address] 03-19-2023 10:48-0500 Heart rate 90 /min DR MARIELY WAGNER MD [address] [place] [address] 03-19-2023 10:48-0500 Reason For Taking VItal Signs DR MARIELY WAGNER MD [address] [place] [address] 03-19-2023 10:48-0500 Respiratory rate 18 /min DR MARIELY WAGNER MD [address] [place] [address] 03-19-2023 10:48-0500 Systolic Blood Pressure Non-Invasive 143 mm[Hg] DR MARIELY WAGNER MD [address] [place] [address] 03-19-2023 08:11-0500 Heart rate 86 /min DR MARIELY WAGNER MD [address] [place] [address] 03-19-2023 06:58-[address] Cuff Size DR MARIELY WANGER MD [address] [place] [address] 03-19-2023 06:58-[address] MARIELY WAGNER MD [address] [place] [address] 03-19-2023 06:58-[address] MARIELY WAGNER MD [address] [place] [address] 03-19-2023 06:58-0500 Body temperature 97.7 [degF] DR MARIELY WAGNER MD [address] [place] [address] 03-19-2023 06:58-0500 Diastolic Blood Pressure Non-Invasive 91 mm[Hg] DR MARIELY WAGNER MD [address] [place] [address] 03-19-2023 06:58-0500 Heart rate 61 /min DR MARIELY WAGNER MD [address] [place] [address] 03-19-2023 06:58-0500 Reason For Taking VItal Signs DR MARIELY WAGNER MD [address] 03-19-2023 06:58-0500 Respiratory rate 18 /min DR MARIELY WAGNER MD [address] [place] [address] 03-19-2023 06:58-0500 Systolic Blood Pressure Non-Invasive 146 mm[Hg] DR MARIELY WAGNER MD [address] [place] [address] 03-19-2023 04:49-0500 Blood Pressure Cuff Size DR MARIELY WAGNER MD [address] [place] [address] 03-19-2023 04:49-[address] MARIELY WAGNER MD [address] [place] [address] 03-19-2023 04:49-[address] MARIELY WAGNER MD [address] [place] [address] 03-19-2023 04:49-0500 Body temperature 97.7 [degF] DR MARIELY WAGNER MD [address] [place] [address] 03-19-2023 04:49-0500 Diastolic Blood Pressure Non-Invasive 88 mm[Hg] DR MARIELY WAGNER MD [address] [place] [address] 03-19-2023 04:49-0500 Heart rate 65 /min DR MARIELY WAGNER MD [address] [place] [address] 03-19-2023 04:49-0500 Reason For Taking VItal Signs DR MARIELY WAGNER MD [address] [place] [address] 03-19-2023 04:49-0500 Respiratory rate 18 /min DR MARIELY WAGNER MD [address] [place] [address] 03-19-2023 04:49-0500 Systolic Blood Pressure Non-Invasive 120 mm[Hg] DR MARIELY WAGNER MD [address] [place] [address] 03-18-2023 23:28-0500 Heart rate 69 /min DR MARIELY WAGNER MD [address] [place] [address] 03-18-2023 18:42-0500 Heart rate 57 /min DR MARIELY WAGNER MD [address] [place] [address] 03-18-2023 16:45-0500 Heart rate 84 /min DR MARIELY WAGNER MD [address] [place] [address] 03-18-2023 10:40-0500 Heart rate 80 /min DR MARIELY WAGNER MD [address] 03-18-2023 04:01-0500 Mean blood pressure 105 mm[Hg] DR MARIELY WAGNER MD [address] [place] [address] 03-17-2023 11:11-0500 Heart rate 74 /min DR MARIELY WAGNER MD [address] [place] [address] 03-16-2023 11:15-0500 Mean blood pressure 99 mm[Hg] DR MARIELY WAGNER MD [address] [place] [address] 03-16-2023 10:51-0500 Mean blood pressure 111 mm[Hg] DR MARIELY WAGNER MD [address] [place] [address] 03-15-2023 23:39-0500 Body height 180.[address] MARIELY WAGNER MD [facility] 03-15-2023 23:39-0500 Body weight 68.[address] MARIELY WAGNER MD [facility] 03-15-2023 23:39-0500 Body weight 21.13 kg/m2 DR MARIELY WAGNER MD [facility] 03-15-2023 10:50-0500 Body weight 68.[address] MARIELY WAGNER MD [facility] 11-01-2022 23:04-0400 Diastolic blood pressure 78 mm[Hg] [facility] 11-01-2022 23:04-0400 Heart rate 78 /min [facility] 11-01-2022 23:04-0400 Respiratory rate 18 /min [place] 11-01-2022 23:04-0400 SaO2% (BldA) [Mass fraction] 95 % [facility] 11-01-2022 23:04-0400 Systolic blood pressure 123 mm[Hg] [facility] 11-01-2022 20:01-0400 Body height 177.8 cm [facility] 11-01-2022 20:01-0400 Body mass index (BMI) [Ratio] 20.3 kg/m2 [facility] 11-01-2022 20:01-0400 Body temperature 98.2 [degF] [place] 11-01-2022 20:01-0400 Body weight 64.27 kg [facility] 10-15-2022 11:32-0400 Body height 180 cm 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 - GAMEWELL OPERATOR [facility] 10-15-2022 11:32-0400 Body weight 20.62 kg/m2 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 - GAMEWELL OPERATOR [facility] 10-15-2022 11:32-0400 Body weight 66.8 kg 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 - GAMEWELL OPERATOR [facility] Comment on above: Result Comment: 160# about 2-3 months ag o pt reports d/t diarrhea and GI problems (pt currently figuring this out with PCP and getting tests ran) 10-05-2022 16:00-0400 Diastolic Blood Pressure Non-Invasive 103 1 MAGDALENA GODDARDT [employer] [facility] 10-05-2022 16:00-0400 Heart rate 69 /min MAGDALENA GODDARDT DO [facility] 10-05-2022 16:00-0400 Systolic Blood Pressure Non-Invasive 134 1 MAGDALENA GODDARDT DO [facility] 10-05-2022 15:30-0400 Diastolic Blood Pressure Non-Invasive 93 1 MAGDALENA GODDARDT [employer] [facility] 10-05-2022 15:30-0400 Heart rate 72 /min MAGDALENA GODDARDT DO [facility] 10-05-2022 15:30-0400 Respiratory rate 16 /min MAGDALENA GODDARDT DO [facility] 10-05-2022 15:30-0400 Systolic Blood Pressure Non-Invasive 149 1 MAGDALENA GODDARDT DO [facility] 10-05-2022 15:00-0400 Diastolic Blood Pressure Non-Invasive 118 1 MAGDALENA NUNN7 [employer] DO [facility] 10-05-2022 15:00-0400 Systolic Blood Pressure Non-Invasive 145 1 MAGDALENA GODDARDT DO [facility] 10-05-2022 14:12-0400 Blood Pressure Location MAGDALENA GODDARDT DO [facility] 10-05-2022 14:12-0400 Blood Pressure Method MAGDALENA NICKERSON DO [facility] 10-05-2022 13:41-0400 Body temperature 97.88 [degF] MAGDALENA NICKERSON DO [facility] 10-05-2022 13:41-0400 Heart rate 99 /min MAGDALENA NICKERSON DO [facility] 07-21-2022 00:00-0400 Diastolic blood pressure 94 mm[Hg] [facility] 07-21-2022 00:00-0400 Heart rate 79 /min [facility] 07-21-2022 00:00-0400 Respiratory rate 18 /min [place] 07-21-2022 00:00-0400 SaO2% (BldA) [Mass fraction] 94 % [facility] 07-21-2022 00:00-0400 Systolic blood pressure 144 mm[Hg] [facility] 07-20-2022 19:10-0400 Body mass index (BMI) [Ratio] 21.5 kg/m2 [facility] 07-20-2022 19:10-0400 Body temperature 96.7 [degF] [place] 07-20-2022 19:10-0400 Body weight 69.9 kg [facility] 05-13-2022 20:38-0400 Body temperature 98.24 [degF] DR MERRICK SINGH DO [facility] 05-13-2022 20:38-0400 Diastolic Blood Pressure Non-Invasive [address] MERRICK SINGH DO [facility] 05-13-2022 20:38-0400 Heart rate 106 /min DR MERRICK SINGH DO [facility] 05-13-2022 20:38-0400 Respiratory rate 18 /min DR MERRICK SINGH DO [facility] 05-13-2022 20:38-0400 Systolic Blood Pressure Non-Invasive [address] MERRICK SINGH DO [facility] 05-13-2022 19:30-0400 Diastolic Blood Pressure Non-Invasive [address] MERRICK SINGH DO [facility] 05-13-2022 19:30-0400 Heart rate 75 /min DR MERRICK SINGH DO [facility] 05-13-2022 19:30-0400 Respiratory rate 18 /min DR MERRICK SINGH DO [facility] 05-13-2022 19:30-0400 Systolic Blood Pressure Non-Invasive [address] MERRICK SINGH DO [facility] 05-13-2022 17:35-[address] MERRICK SINGH DO [facility] 05-13-2022 17:35-[address] MERRICK SINGH DO [facility] 05-13-2022 17:35-0400 Body temperature 98.42 [degF] DR MERRICK SINGH DO [facility] 05-13-2022 17:35-0400 Diastolic Blood Pressure Non-Invasive [address] MERRICK SINGH DO [facility] 05-13-2022 17:35-0400 Heart rate 89 /min DR MERRICK SINGH DO [facility] 05-13-2022 17:35-0400 Respiratory rate 18 /min DR MERRICK SINGH DO [facility] 05-13-2022 17:35-0400 Systolic Blood Pressure Non-Invasive [address] MERRICK SINGH DO [facility] 05-13-2022 17:33-0400 Body temperature 98.42 [degF] DR MERRICK SINGH DO [facility] 03-24-2022 08:25-0500 Body temperature 97.5 [degF] 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 Andreas Pathak 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 Phone: [facility] 03-24-2022 08:25-0500 Diastolic blood pressure 76 mm[Hg] 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 Andreas Pathak 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 Phone: [facility] 03-24-2022 08:25-0500 Heart rate 66 /min 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 Andreas Pathak 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 Phone: [facility] 03-24-2022 08:25-0500 Respiratory rate 16 /min 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 Andreas Pathak 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 Phone: [facility] 03-24-2022 08:25-0500 SaO2% (BldA) [Mass fraction] 95 % 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 Andreas Pathak 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 Phone: [facility] 03-24-2022 08:25-0500 Systolic blood pressure 127 mm[Hg] 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 Andreas Pathak 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 Phone: [facility] 03-22-2022 10:11-0500 Body height 180.34 cm 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 Andreas Pathak 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 Phone: [facility] 03-22-2022 10:11-0500 Body weight 62.3 kg 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 Andreas Pathak 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 Phone: [facility] 03-21-2022 19:44-0500 Body mass index (BMI) [Ratio] 19.1 kg/m2 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 Andreas Pathak 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 Phone: [facility] 03-21-2022 18:15-0500 Body temperature 98.5 [degF] 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 Andreas Pathak 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 Phone: [facility] 03-21-2022 18:15-0500 Diastolic blood pressure 99 mm[Hg] 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 Andreas Pathak 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 Phone: [facility] 03-21-2022 18:15-0500 Heart rate 86 /min 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 Andreas Pathak 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 Phone: [facility] 03-21-2022 18:15-0500 Respiratory rate 18 /min 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 Andreas Pathak 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 Phone: [facility] 03-21-2022 18:15-0500 SaO2% (BldA) [Mass fraction] 100 % 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 Andreas Pathak 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 Phone: [facility] 03-21-2022 18:15-0500 Systolic blood pressure 159 mm[Hg] 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 Andreas Pathak 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 Phone: [facility] 03-21-2022 17:43-0500 Body height 180.34 cm 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 Andreas Pathak 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 Phone: [facility] 03-21-2022 17:43-0500 Body mass index (BMI) [Ratio] 20.9 kg/m2 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 Andreas Pathak 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 Phone: [facility] 03-21-2022 17:43-0500 Body weight 68.03 kg 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 Andreas Pathak 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 Phone: [facility] 02-04-2022 13:17-0500 Body temperature 98.3 [degF] 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 Andreas Pathak 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 Phone: [facility] 02-04-2022 13:17-0500 Diastolic blood pressure 92 mm[Hg] 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 Andreas Pathak 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 Phone: [facility] 02-04-2022 13:17-0500 Heart rate 102 /min 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 Andreas Pathak 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 Phone: [facility] 02-04-2022 13:17-0500 Respiratory rate 18 /min 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 Andreas Pathak 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 Phone: [facility] 02-04-2022 13:17-0500 SaO2% (BldA) [Mass fraction] 100 % 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 Andreas Pathak 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 Phone: [facility] 02-04-2022 13:17-0500 Systolic blood pressure 121 mm[Hg] 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 Andreas Pathak 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 Phone: [facility] 02-04-2022 03:34-0500 Body weight 70 kg 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 Andreas Luxpkins 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 Phone: [facility] 02-02-2022 11:36-0500 Body height 180.34 cm 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 Andreas Pathak 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 Phone: [facility] Work Phone: 02-01-2022 21:44-0500 Body mass index (BMI) [Ratio] 20.2 kg/m2 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 Andreas Pathak 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 Phone: [facility] 02-01-2022 21:00-0500 Body temperature 96.2 [degF] 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 Andreas Pathak 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 Phone: [facility] Work Phone: 02-01-2022 21:00-0500 Diastolic blood pressure 82 mm[Hg] 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 Andreas Luxpkins 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 Phone: [facility] Work Phone: 02-01-2022 21:00-0500 Heart rate 128 /min 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 Andreas Pathak 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 Phone: [facility] Work Phone: 02-01-2022 21:00-0500 Respiratory rate 13 /min 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 Andreas Pathak 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 Phone: [facility] Work Phone: 02-01-2022 21:00-0500 SaO2% (BldA) [Mass fraction] 100 % 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 Andreas Pathak 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 Phone: [facility] Work Phone: 02-01-2022 21:00-0500 Systolic blood pressure 117 mm[Hg] 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 Andreas Pathak 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 Phone: [facility] Work Phone: 02-01-2022 19:02-0500 Body height 180.34 cm 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 Andreas Pathak 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 Phone: [facility] Work Phone: 02-01-2022 19:02-0500 Body mass index (BMI) [Ratio] 21.5 kg/m2 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 Andreas Pathak 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 Phone: [facility] Work Phone: 02-01-2022 19:02-0500 Body weight 70.1 kg 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 Andreas Pathak 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 Phone: [facility] Work Phone: 11-14-2021 09:51-0400 Heart rate 89 /min 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 Andreas Pathak 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 Phone: [facility] Work Phone: 11-14-2021 08:30-0400 Body temperature 98.5 [degF] 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 Andreas Pathak 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 Phone: [facility] Work Phone: 11-14-2021 08:30-0400 Diastolic blood pressure 72 mm[Hg] 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 Andreas Pathak 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 Phone: [facility] Work Phone: 11-14-2021 08:30-0400 Respiratory rate 16 /min 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 Andreas Pathak 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 Phone: [facility] Work Phone: 11-14-2021 08:30-0400 SaO2% (BldA) [Mass fraction] 100 % 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 Andreas Pathak 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 Phone: [facility] Work Phone: 11-14-2021 08:30-0400 Systolic blood pressure 121 mm[Hg] 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 Andreas Pathak 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 Phone: [facility] Work Phone: 11-12-2021 10:35-0400 Body weight 68.8 kg 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 Andreas Pathak 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 Phone: [facility] Work Phone: 11-11-2021 17:38-0400 Body mass index (BMI) [Ratio] 21.1 kg/m2 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 Andreas Pathak 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 Phone: [facility] Work Phone: 11-08-2021 10:47-0400 Body temperature 98.6 [degF] 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 Andreas Pathak 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 Phone: [facility] Work Phone: 11-08-2021 10:47-0400 Diastolic blood pressure 95 mm[Hg] 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 Andreas Pathak 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 Phone: [facility] Work Phone: 11-08-2021 10:47-0400 Heart rate 82 /min 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 Andreas Pathak 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 Phone: [facility] Work Phone: 11-08-2021 10:47-0400 Respiratory rate 16 /min 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 Andreas Pathak 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 Phone: [facility] Work Phone: 11-08-2021 10:47-0400 SaO2% (BldA) [Mass fraction] 98 % 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 Andreas Pathak 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 Phone: [facility] Work Phone: 11-08-2021 10:47-0400 Systolic blood pressure 114 mm[Hg] 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 Andreas Luxpkins 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 Phone: [facility] Work Phone: 11-06-2021 10:33-0400 Body weight 69.4 kg 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 Andreas Pathak 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 Phone: [facility] Work Phone: 11-05-2021 20:28-0400 Body temperature 98 [degF] 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 Andreas Luxpkins 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 Phone: [facility] Work Phone: 11-05-2021 20:28-0400 Diastolic blood pressure 67 mm[Hg] 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 Andreas Luxpkins 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 Phone: [facility] Work Phone: 11-05-2021 20:28-0400 Heart rate 107 /min 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 Andreas Luxpkins 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 Phone: [facility] Work Phone: 11-05-2021 20:28-0400 Respiratory rate 18 /min 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 Andreas Luxpkins 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 Phone: [facility] Work Phone: 11-05-2021 20:28-0400 SaO2% (BldA) [Mass fraction] 97 % 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 Andreas Luxpkins 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 Phone: [facility] Work Phone: 11-05-2021 20:28-0400 Systolic blood pressure 116 mm[Hg] 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 Andreas Luxpkins 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 Phone: [facility] Work Phone: 11-05-2021 18:03-0400 Body mass index (BMI) [Ratio] 21.3 kg/m2 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 Andreas Luxpkins 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 Phone: [facility] Work Phone: 11-05-2021 16:18-0400 Body height 180.34 cm 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 Andreas Luxpkins 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 Phone: [facility] Work Phone: 11-05-2021 16:18-0400 Body mass index (BMI) [Ratio] 24.4 kg/m2 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 Andreas Luxpkins 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 Phone: [facility] Work Phone: 11-05-2021 16:18-0400 Body weight 79.37 kg 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 Andreas Luxpkins 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 Phone: [facility] Work Phone: 10-06-2021 23:34-0400 Diastolic blood pressure 76 mm[Hg] 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 Andreas Luxpkins 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 Phone: [facility] Work Phone: 10-06-2021 23:34-0400 Heart rate 100 /min 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 Andreas Luxpkins 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 Phone: [facility] Work Phone: 10-06-2021 23:34-0400 Respiratory rate 18 /min 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 Andreas Luxpkins 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 Phone: [facility] Work Phone: 10-06-2021 23:34-0400 SaO2% (BldA) [Mass fraction] 95 % 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 Andreas Luxpkins 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 Phone: [facility] Work Phone: 10-06-2021 23:34-0400 Systolic blood pressure 114 mm[Hg] 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 Andreas Luxpkins 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 Phone: [facility] Work Phone: 10-06-2021 18:43-0400 Body temperature 98 [degF] 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 Andreas Luxpkins 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 Phone: [facility] Work Phone: 10-06-2021 12:22-0400 Body height 180.34 cm 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 Andreas Pathak 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 Phone: [facility] Work Phone: 10-06-2021 12:22-0400 Body mass index (BMI) [Ratio] 20.1 kg/m2 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 Andreas Upshur 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 Phone: [facility] Work Phone: 10-06-2021 12:22-0400 Body weight 65.6 kg 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 Andreas Pathak 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 Phone: [facility] Work Phone: 09-30-2021 14:53-0400 Diastolic blood pressure 81 mm[Hg] 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 Andreas Pathak 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 Phone: [facility] Work Phone: 09-30-2021 14:53-0400 Heart rate 100 /min 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 Andreas Pathak 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 Phone: [facility] Work Phone: 09-30-2021 14:53-0400 Respiratory rate 18 /min 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 Andreas Zo 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 Phone: [facility] Work Phone: 09-30-2021 14:53-0400 SaO2% (BldA) [Mass fraction] 97 % 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 Andreas Pathak 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 Phone: [facility] Work Phone: 09-30-2021 14:53-0400 Systolic blood pressure 112 mm[Hg] 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 Andreas Upshur 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 Phone: [facility] Work Phone: 09-30-2021 13:34-0400 Body height 180.34 cm 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 Andreas Zo 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 Phone: [facility] Work Phone: 09-30-2021 13:34-0400 Body mass index (BMI) [Ratio] 21 kg/m2 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 Andreas Pathak 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 Phone: [facility] Work Phone: 09-30-2021 13:34-0400 Body temperature 97.1 [degF] 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 Andreas Pathak 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 Phone: [facility] Work Phone: 09-30-2021 13:34-0400 Body weight 68.49 kg 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 Andreas Luxpkins 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 Phone: [facility] Work Phone: 06-01-2021 09:42-0400 Diastolic blood pressure 86 mm[Hg] 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 Andreas Luxpkins 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 Phone: [facility] Work Phone: 06-01-2021 09:42-0400 Heart rate 67 /min 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 Andreas Luxpkins 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 Phone: [facility] Work Phone: 06-01-2021 09:42-0400 Systolic blood pressure 142 mm[Hg] 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 Andreas Luxpkins 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 Phone: [facility] Work Phone: 06-01-2021 09:40-0400 Body temperature 98.4 [degF] 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 Andreas Pathak 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 Phone: [facility] Work Phone: 06-01-2021 09:40-0400 Respiratory rate 18 /min 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 Andreas Luxpkins 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 Phone: [facility] Work Phone: 06-01-2021 09:40-0400 SaO2% (BldA) [Mass fraction] 99 % 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 Andreas Luxpkins 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 Phone: [facility] Work Phone: 05-30-2021 11:48-0400 Body height 165.1 cm 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 Andreas Upshur 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 Phone: [facility] Work Phone: 05-30-2021 11:48-0400 Body weight 74.84 kg 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 Andreas Upshur 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 Phone: [facility] Work Phone: 05-29-2021 22:10-0400 Body mass index (BMI) [Ratio] 27.4 kg/m2 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 Andreas Pathak 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 Phone: [facility] Work Phone: 05-29-2021 20:49-0400 Body temperature 98.3 [degF] 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 Andreas Pathak 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 Phone: [facility] Work Phone: 05-29-2021 20:49-0400 Diastolic blood pressure 79 mm[Hg] 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 Andreas Pathak 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 Phone: [facility] Work Phone: 05-29-2021 20:49-0400 Heart rate 115 /min 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 Andreas Pathak 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 Phone: [facility] Work Phone: 05-29-2021 20:49-0400 Respiratory rate 18 /min 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 Andreas Pathak 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 Phone: [facility] Work Phone: 05-29-2021 20:49-0400 SaO2% (BldA) [Mass fraction] 95 % 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 Andreas Pathak 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 Phone: [facility] Work Phone: 05-29-2021 20:49-0400 Systolic blood pressure 127 mm[Hg] 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 Andreas Pathak 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 Phone: [facility] Work Phone: 05-29-2021 19:09-0400 Body height 180.34 cm 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 Andreas Pathak 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 Phone: [facility] Work Phone: 05-29-2021 19:09-0400 Body mass index (BMI) [Ratio] 23 kg/m2 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 Andreas Luxpkins 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 Phone: [facility] Work Phone: 05-29-2021 19:09-0400 Body weight 74.84 kg 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 Andreas Upshur 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 Phone: [facility] Work Phone: 05-22-2021 07:51-0400 Respiratory rate 16 /min 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 Andreas Pathak 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 Phone: [facility] Work Phone: 05-22-2021 06:30-0400 Body temperature 97.9 [degF] 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 Andreas Zo 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 Phone: [facility] Work Phone: 05-22-2021 06:30-0400 Diastolic blood pressure 83 mm[Hg] 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 Andreas Upshur 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 Phone: [facility] Work Phone: 05-22-2021 06:30-0400 Heart rate 100 /min 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 Andreas Luxpkins 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 Phone: [facility] Work Phone: 05-22-2021 06:30-0400 SaO2% (BldA) [Mass fraction] 95 % 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 Andreas Upshur 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 Phone: [facility] Work Phone: 05-22-2021 06:30-0400 Systolic blood pressure 147 mm[Hg] 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 Andreas Upshur 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 Phone: [facility] Work Phone: 05-21-2021 18:28-0400 Body mass index (BMI) [Ratio] 24 kg/m2 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 Andreas Pathak 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 Phone: [facility] Work Phone: 05-21-2021 18:28-0400 Body weight 74 kg 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 Andreas Luxpkins 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 Phone: [facility] Work Phone: 05-05-2021 14:31-0400 Diastolic blood pressure 96 mm[Hg] 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 Andreas Luxpkins 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 Phone: [facility] Work Phone: 05-05-2021 14:31-0400 Heart rate 87 /min 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 Andreas Luxpkins 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 Phone: [facility] Work Phone: 05-05-2021 14:31-0400 Respiratory rate 16 /min 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 Andreas Luxpkins 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 Phone: [facility] Work Phone: 05-05-2021 14:31-0400 SaO2% (BldA) [Mass fraction] 100 % 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 Andreas Luxpkins 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 Phone: [facility] Work Phone: 05-05-2021 14:31-0400 Systolic blood pressure 145 mm[Hg] 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 Andreas Luxpkins 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 Phone: [facility] Work Phone: 05-05-2021 13:48-0400 Body temperature 98.4 [degF] 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 Andreas Luxpkins 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 Phone: [facility] Work Phone: 05-04-2021 15:40-0400 Body height 180.34 cm 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 Andreas Luxpkins 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 Phone: [facility] Work Phone: 05-04-2021 15:40-0400 Body mass index (BMI) [Ratio] 22.3 kg/m2 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 Andreas Zo 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 Phone: [facility] Work Phone: 05-04-2021 15:40-0400 Body weight 72.5 kg ALAN Pathak NP Work Phone: [facility] Work Phone: 05-04-2021 15:36-0400 Body temperature 98 [degF] [place] Work Phone: 05-04-2021 15:36-0400 Diastolic blood pressure 101 mm[Hg] [facility] Work Phone: 05-04-2021 15:36-0400 Heart rate 97 /min [facility] Work Phone: 05-04-2021 15:36-0400 Respiratory rate 18 /min [place] Work Phone: 05-04-2021 15:36-0400 SaO2% (BldA) [Mass fraction] 99 % [facility] Work Phone: 05-04-2021 15:36-0400 Systolic blood pressure 157 mm[Hg] [facility] Work Phone: 05-04-2021 13:18-0400 Body height 180.34 cm [facility] Work Phone: 05-04-2021 13:18-0400 Body mass index (BMI) [Ratio] 23 kg/m2 [facility] Work Phone: 05-04-2021 13:18-0400 Body weight 74.84 kg [facility] Work Phone: 05-02-2021 15:49-0400 Diastolic blood pressure 92 mm[Hg] DR SHILPI BURNS MD [facility] 05-02-2021 15:49-0400 Heart rate 84 /min DR SHILPI BURNS MD [facility] 05-02-2021 15:49-0400 Respiratory rate 16 /min DR SHILPI BURNS MD [facility] 05-02-2021 15:49-0400 Systolic blood pressure 143 mm[Hg] DR SHILPI BURNS MD [facility] 05-02-2021 14:22-0400 Diastolic blood pressure 85 mm[Hg] DR SHILPI BURNS MD [facility] 05-02-2021 14:22-0400 Heart rate 87 /min DR SHILPI BURNS MD [facility] 05-02-2021 14:22-0400 Respiratory rate 16 /min DR SHILPI BURNS MD [facility] 05-02-2021 14:22-0400 Systolic blood pressure 152 mm[Hg] DR SHILPI BURNS MD [facility] 05-02-2021 13:50-0400 Diastolic blood pressure 95 mm[Hg] DR SHILPI BURNS MD [facility] 05-02-2021 13:50-0400 Heart rate 88 /min DR SHILPI BURNS MD [facility] 05-02-2021 13:50-0400 Mean blood pressure 112 mm[Hg] DR SHILPI BURNS MD [facility] 05-02-2021 13:50-0400 Respiratory rate 16 /min DR SHILPI BURNS MD [facility] 05-02-2021 13:50-0400 Systolic blood pressure 145 mm[Hg] DR SHILPI BURNS MD [facility] 05-02-2021 13:04-0400 Body temperature 98.6 [degF] DR SHILPI BURNS MD [facility] 05-02-2021 13:04-0400 Body weight 73.[address] SHILPI BURNS MD [facility] 05-02-2021 13:04-0400 Heart rate 120 /min DR SHILPI BURNS MD [facility] Encounters Encounter Date Encounter Type Care Provider Facility Start: [facility]04[facility] Start: 08-29-2024 Evaluation and manag ement of inpatient Dr. Rolan Romero DO Work Phone: -[facility] Unit Start: 08-29-2024 Dr. Trish berman MD -[facility] Work Phone: Start: 08-13-2024 End: 08-14-2024 Refill Marianna A Queden WAXER OPERATOR.GAMEWELL OPERATOR Work Phone: [facility] Comment on above: Refill Request Start: 08-03-2024 End: 08-04-2024 Refill Marianna A Queden WAXER OPERATOR.GAMEWELL OPERATOR Work Phone: [facility] Comment on above: Refill Request Start: 08-03-2024 Dr. Iman palmer MD -[facility] Work Phone: Start: 08-02-2024 Suyapa BALDERAS -[facility] Start: 08-02-2024 Dr. Valeriy rivers DO -[facility] Work Phone: Start: 08-01-2024 ambulatory Sigrid Call [facility] Faci lity:[facility] Start: 08-01-2024 End: 08-03-2024 Evaluation and management of inpatient No Primary Care Physician [facility] Work Phone: Start: 08-01-2024 End: 08-03-2024 Dr. Iman Aguayo MD -[facility] Work Phone: Start: 07-20-2024 End: 07-20-2024 ambulatory No Primary Care Physician [facility] Work Phone: Start: 07-20-2024 End: 07-20-2024 Dr. Trung Bob MD -[facility] Work Phone: Start: 07-17-2024 End: 07-17-2024 ambulatory Radha Etienne RN Work Phone: Data Processing Supervisor Start: 07-17-2024 End: 07-17-2024 Home visit Radha Etienne RN Work Phone: Data Processing Supervisor Comment on above: Transition Of Care ( [facility] D/C 07/14/24) Initial phone contact for Transitional Care Management Start: 07-14-2024 Dr. Conrado moura MD -[facility] Work Phone: Start: 07-13-2024 Dr. Conrado moura MD -[facility] Work Phone: Start: 07-13-2024 Dian cabrera PA-C -[facility] Start: 07-12-2024 Dian cabrera PA-C -[facility] Start: 07-12-2024 Dr. Conrado moura MD -[facility] Work Phone: Start: 07-11-2024 End: 07-14-2024 Evaluation and management of inpatient No Primary Care Physician [facility] Work Phone: Start: 07-11-2024 End: 07-14-2024 Dr. Conrado Morel MD -[facility] Work Phone: Start: 07-11-2024 End: 07-11-2024 ambulatory Radha Etienne RN Work Phone: AG Data Processing Supervisor Start: 07-11-2024 End: 07-11-2024 Home visit Radha Etienne RN Work Phone: Data Processing Supervisor Comment on above: Transition Of Care ( TCM f/u/) Weekly phone contact (Recurring) for Transitional Care Management Start: 07-07-2024 End: 07-07-2024 ambulatory Radha Etienne RN Work Phone: AG Data Processing Supervisor Start: 07-07-2024 End: 07-07-2024 Home visit Radha Etienne RN Work Phone: Data Processing Supervisor Comment on above: Transition Of Care ( [place] D/C 07/06/24) Initial phone contact for Transitional Care Management Start: 07-06-2024 Dr. Chris Aragon [facility] Work Phone: Start: 07-05-2024 Dr. Chris Aragon [facility] Work Phone: Start: 07-04-2024 Antonyagata Espitia [facility] Start: 07-04-2024 Dr. Chris Aragon [facility] Work Phone: Start: 07-04-2024 Dr. Yaneli hall MD -[facility] Start: 07-03-2024 ambulatory Yaneli Carbone Facility:[facility] Start: 07-03-2024 Antony Espitia [facility] Start: 07-02-2024 Dr. Melonie Wharton [facility] Work Phone: Start: 07-01-2024 Dr. [facility] Work Phone: Start: 06-30-2024 End: 07-06-2024 Evaluation and management of inpatient No Primary Care Physician [facility] Work Phone: Start: 06-30-2024 End: 07-06-2024 Dr. Chris Aragon [facility] Work Phone: Start: 06-30-2024 ambulatory Conrado Cole ty:[facility] Start: 06-28-2024 Non-patient / Non-visit Dr. Melonie De La Rosa [facility] Work Phone: Start: 06-28-2024 Antony Friend DO -[facility] Start: 06-27-2024 Non-patient / Non-visit Antnoymarsha Werner nd DO -[facility] Start: 06-27-2024 Antony Friend DO -[facility] Start: 06-27-2024 Non-patient / Non-visit Dr. Melonie De La Rosa [facility] Work Phone: Start: 06-27-2024 Dr. Melonie De La Rosa DO [facility] Work Phone: Start: 06-26-2024 Non-patient / Non-visit Antonymarsha Werner nd DO -[facility] Start: 06-26-2024 Antony Friend DO -[facility] Start: 06-26-2024 End: 06-26-2024 Telephone encounter Marianna Wagner APRN.GAMEWELL OPERATOR Work Phone: [facility] Comment on above: Lab Orders Start: 06-26-2024 Non-patient / Non-visit Dr. Melonie De La Rosa DO [facility] Work Phone: Start: 06-26-2024 Dr. Melonie De La Rosa DO [facility] Work Phone: Start: 06-25-2024 ambulatory Conrado Cole ty:[facility] Start: 06-25-2024 End: 06-28-2024 Evaluation and management of inpatient Dr. Conrado Pro DO Progressive [facility] Unit Work Phone: Start: 06-25-2024 End: 06-28-2024 Dr. Melonie De La Rosa DO -[facility] Work Phone: Start: 06-21-2024 End: 06-21-2024 Telephone encounter Marianna A Queden WAXER OPERATOR.GAMEWELL OPERATOR Work Phone: [facility] Start: 05-28-2024 End: 05-29-2024 Refill Marianna A Queden WAXER OPERATOR.GAMEWELL OPERATOR Work Phone: [facility] Comment on above: Refill Request Start: 05-14-2024 End: 05-15-2024 Refill Marianna A Queden WAXER OPERATOR.GAMEWELL OPERATOR Work Phone: [facility] Comment on above: Refill Request Start: 04-13-2024 End: 04-13-2024 ambulatory No Primary Care Physician [facility] Start: 04-13-2024 End: 04-13-[address] [facility] Work Phone: Start: 04-13-2024 End: 04-13-2024 Dr. 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) Start: 04-10-2024 End: 06-10-2024 Follow-up encounter Susana Ramirez WAXER OPERATOR.GAMEWELL OPERATOR Work Phone: [facility] [place] Start: 04-10-2024 End: 04-10-2024 Refill Ramy C Sheets DO Work Phone: [facility] Comment on above: Refill Request Start: 04-05-2024 ambulatory MARIANNA A SARADEN Facili ty:[facility] Start: 04-05-2024 End: 04-05-2024 Subsequent hospital visit by physician Phoebe Vazquez MD Work Phone: [facility] Endoscopy Comment on above: Anemia, unspecified type [D64.9] Start: 03-31-2024 End: 03-31-2024 Telephone encounter Phoebe Vazquez MD Work Phone: General Surgery Comment on above: Returning Patient's Call Start: 03-29-2024 End: 03-29-2024 Telephone encounter Vandana Edwards Work Phone: Hematology/Oncology Start: 03-27-2024 End: 03-28-2024 Follow-up encounter Marianna Wagner WAXER OPERATOR.GAMEWELL OPERATOR Work Phone: [facility] Comment on above: Type 2 diabetes kirk itus with complication, with long-term current use of insulin (HCC) Start: 03-24-2024 End: 03-24-2024 Telephone encounter Brandy Motta PA-C Work Phone: [facility] Adult Comment on above: Patient Question Start: 03-14-2024 End: 03-14-2024 ambulatory RAMY C SHEETS Facility:[facility] Start: 03-13-2024 End: 03-14-2024 Telephone encounter Phoebe Vazquez MD Work Phone: [facility] Comment on above: Patient Question Start: 03-08-2024 End: 03-08-2024 Refill Mariannael Ruizden WAXER OPERATOR.GAMEWELL OPERATOR Work Phone: [facility] Comment on above: Refill Request Start: 02-21-2024 End: 02-21-2024 Refill Mariannael Ruizden WAXER OPERATOR.GAMEWELL OPERATOR Work Phone: [facility] Comment on above: Refill Request Start: 02-21-2024 End: 02-21-2024 Telephone encounter Marianna Wagner WAXER OPERATOR.GAMEWELL OPERATOR Work Phone: [facility] Comment on above: Patient Question Start: 02-20-2024 End: 02-21-2024 Refill Marianna Wagner WAXER OPERATOR.GAMEWELL OPERATOR Work Phone: [facility] Comment on above: Refill Request Start: 02-16-2024 End: 03-03-2024 Telephone encounter Marianna Wagner WAXER OPERATOR.GAMEWELL OPERATOR Work Phone: [facility] Comment on above: Lab Orders Start: 02-08-2024 End: 02-08-2024 Refill Marianna Wagner WAXER OPERATOR.GAMEWELL OPERATOR Work Phone: [facility] Comment on above: Refill Request Start: 01-20-2024 End: 01-20-2024 Refill Marianna Wagner WAXER OPERATOR.GAMEWELL OPERATOR Work Phone: [facility] Comment on above: Refill Request Start: 01-14-2024 End: 01-29-2024 Telephone encounter Vandana Jerry Work Phone: Hematology/Oncology Comment on above: Appointment Start: 01-13-2024 End: 01-13-2024 ambulatory [facility] Facility:[facility] Start: 12-31-2023 End: 12-31-2023 Telephone encounter Sabra Desouza APRN.SOFTWARE SALES REPRESENTATIVE Work Phone: [facility] Comment on above: Anesthesia Consult Start: 12-27-2023 End: 12-27-2023 Patient encounter procedure Marianna Wagner WAXER OPERATOR.GAMEWELL OPERATOR Work Phone: [facility] Comment on above: Primary hypertension (Primary Dx); Type 2 diabetes mellitus with complication, with long-term current use of insulin (HCC); Stage 3 chronic kidney disease, unspecified whether stage 3a or 3b CKD (HCC); Hyperlipidemia, mixed; Gastroesophageal reflux disease, unspecified whether esophagitis present; Chronic pancreatitis, unspecified pancreatitis type (HCC); Anemia, unspecified type Start: 12-27-2023 End: 12-27-2023 ambulatory MARIANNA RUIZDEN Facility:[facility] Start: 12-24-2023 End: 12-24-2023 ambulatory MARIANNA A QUEDEN Facility:[facility] Start: 12-24-2023 End: 12-24-2023 Office outpatient new 45 minutes Susana Ramirez WAXER OPERATOR.GAMEWELL OPERATOR Work Phone: [facility] [place] Comment on above: Anemia, unspecified type (Primary Dx); Weight loss; Chronic pancreatitis, unspecified pancreatitis type (HCC); Epigastric pain; Right lower quadrant abdominal pain Start: 12-16-2023 End: 12-16-2023 Telephone encounter Marianna Wagner WAXER OPERATOR.GAMEWELL OPERATOR Work Phone: [facility] Comment on above: Results Start: 12-08-2023 ambulatory MARIANNAEL WAGNER Facili ty:[facility] Start: 12-08-2023 End: 12-08-2023 Subsequent hospital visit by physician Ct [facility] Radiology Comment on above: Diarrhea, unspecifie d type [R19.7] Start: 12-07-2023 End: 12-07-2023 Telephone encounter Marianna Wagner WAXER OPERATOR.GAMEWELL OPERATOR Work Phone: [facility] Start: 12-02-2023 ambulatory MARIANNAEL WAGNRE Facili ty:[facility] Start: 12-02-2023 End: 12-02-2023 Subsequent hospital visit by physician [facility] (I-Stat) Work Phone: Cat Scan Start: 11-26-2023 End: 11-26-2023 Refill Marianna Wagner WAXER OPERATOR.GAMEWELL OPERATOR Work Phone: [facility] Comment on above: Refill Request Start: 11-25-2023 End: 11-29-2023 Telephone encounter Marianna Wagner WAXER OPERATOR.GAMEWELL OPERATOR Work Phone: [facility] Comment on above: denial: [id number] JIMÉNEZ FERNANDO DUMONT Start: 11-16-2023 End: 11-16-2023 Telephone encounter Marianna Wagner WAXER OPERATOR.GAMEWELL OPERATOR Work Phone: [facility] Comment on above: Patient Update Start: 11-15-2023 End: 11-15-2023 ambulatory Vandana Edwards Work Phone: Hematology/Oncology Comment on above: Anemia, unspecified type (Primary Dx); Diarrhea of presumed infectious origin; 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); Medically complex patient Start: 11-15-2023 End: 11-15-2023 Patient encounter procedure Vandanaru Yepezight Work Phone: Hematology/Oncology Start: 11-07-2023 End: 11-09-2023 Telephone encounter Marianna Wagner WAXER OPERATOR.GAMEWELL OPERATOR Work Phone: [facility] Comment on above: Results; Orders Start: 11-06-2023 End: 11-08-2023 Refill Marianna Wagner WAXER OPERATOR.GAMEWELL OPERATOR Work Phone: [facility] Comment on above: Refill Request Start: 11-05-2023 End: 11-05-2023 ambulatory Yessica Umana LEAF COVERER [facility] Start: 10-30-2023 End: 10-30-2023 Emergency department patient visit ANN-MARIE WILMA DO [facility] Start: 10-21-2023 End: 10-21-2023 ambulatory No Primary Care Physician [facility] Start: 10-21-2023 End: 10-21-2023 ambulatory MARIANNA WAGNER Facility:[facility] Start: 10-21-2023 End: 10-21-2023 Subsequent hospital visit by physician Kira [facility] (I-Stat) Work Phone: Cat Scan Comment on above: Generalized abdomina l pain [R10.84] Start: 10-19-2023 End: 10-20-2023 Telephone encounter Trish Silverio DO Work Phone: Hematology/Oncology Comment on above: New Patient Start: 10-17-2023 End: 10-20-2023 Telephone encounter Marianna Wagner WAXER OPERATOR.GAMEWELL OPERATOR Work Phone: [facility] Comment on above: Results Start: 10-15-2023 End: 10-15-2023 ambulatory MARIANNA WAGNER Facility:[facility] Start: 10-14-2023 End: 10-14-2023 Patient encounter procedure Marianna Wagner WAXER OPERATOR.GAMEWELL OPERATOR Work Phone: [facility] Comment on above: Generalized abdomina l pain [...] smoker Start: 10-14-2023 End: 10-14-2023 ambulatory MARIANNA WAGNER Facility:[facility] Start: 10-07-2023 End: 10-12-2023 Telephone encounter Marianna Wagner WAXER OPERATOR.GAMEWELL OPERATOR Work Phone: [facility] Comment on above: Results; Orders Start: 09-25-2023 End: 09-25-2023 ambulatory MARIANNA WAGNER Facility:[facility] Start: 09-24-2023 Telephone encounter Marianna Wagner WAXER OPERATOR.GAMEWELL OPERATOR Work Phone: [facility] Comment on above: Patient Question Start: 09-15-2023 ambulatory Radha Bartholomew lm, RN AG Data Processing Supervisor Start: 09-15-2023 Home visit Radha Bartholomew lm, RN AG Data Processing Supervisor Comment on above: Primary Care Coordin ator Chronic Care (Care Coordination) Start: 09-13-2023 Telephone encounter Marianna Wagner WAXER OPERATOR.STEPHANIE Work Phone: [facility] Comment on above: Patient Update Start: 09-10-2023 ambulatory Radha Bartholomew lm, RN AG Data Processing Supervisor Comment on above: Diarrhea Start: 09-10-2023 Home visit Radha Bartholomew lm, RN AG Data Processing Supervisor Comment on above: Primary Care Coordin ator- Other (Care Coordination) Start: 08-24-2023 ambulatory Radha Bartholomew lm, RN AG Data Processing Supervisor Start: 08-24-2023 Home visit Radha Bartholomew lm, RN AG Data Processing Supervisor Comment on above: Primary Care Coordin ator- Other (Care Coordination) Start: 08-20-2023 Telephone encounter Marianna Wagner WAXER OPERATOR.GAMEWELL OPERATOR Work Phone: [facility] Comment on above: Patient Question Start: 08-16-2023 Telephone encounter Marianna Wagner WAXER OPERATOR.GAMEWELL OPERATOR Work Phone: [facility] Comment on above: Results Start: 08-11-2023 Telephone encounter Marianna Wagner WAXER OPERATOR.GAMEWELL OPERATOR Work Phone: [facility] Comment on above: Results Start: 08-09-2023 End: 08-09-2023 ambulatory MARIANNA WAGNER Facility:[facility] Start: 08-09-2023 End: 08-09-2023 Patient encounter procedure Marianna Wagner WAXER OPERATOR.GAMEWELL OPERATOR Work Phone: [facility] Comment on above: Type 2 diabetes kirk [...] virus) Start: 08-09-2023 End: 08-09-2023 ambulatory MARIANNA WAGNER Facility:[facility] Start: 05-20-2023 CLAM DREDGERAstrid Pathak NP Work Phone: [facility] Work Phone: Start: 05-19-2023 ALAN Pathak NP Work Phone: [facility] Work Phone: Start: 05-18-2023 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 Andreas Pathak 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 Phone: [facility] Work Phone: Start: 05-17-2023 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 Andreas Pathak 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 Phone: [facility] Work Phone: Start: 05-16-2023 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 Andreas Pathak 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 Phone: [facility] Work Phone: Start: 05-15-2023 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 Andreas Pathak 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 Phone: [facility] Work Phone: Start: 05-14-2023 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 Andreas Pathak 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 Phone: [facility] Work Phone: Start: 05-13-2023 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 Andreas Pathak 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 Phone: [facility] Work Phone: Start: 05-13-2023 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 Andreas Pathak 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 Phone: [facility] Start: 05-12-2023 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 Andreas Pathak 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 Phone: [facility] Start: 05-12-2023 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 Andreas Pathak 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 Phone: [facility] Work Phone: Start: 05-11-2023 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 Andreas Pathak 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 Phone: [facility] Work Phone: Start: 05-10-2023 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 Andreas Pathak 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 Phone: [facility] Start: 05-10-2023 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 Andreas Pathak 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 Phone: [facility] Work Phone: Start: 05-09-2023 End: 05-20-2023 Evaluation and management of inpatient 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 Andreas Pathak 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 Phone: [facility] Work Phone: Start: 05-09-2023 End: 05-20-2023 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 Andreas Pathak 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 Phone: [facility] Work Phone: Start: 04-27-2023 Non-patient / Non-visit 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 Harry Pathak 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 Phone: [facility] Work Phone: Start: 04-27-2023 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 Andreas Pathak 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 Phone: [facility] Work Phone: Start: 04-26-2023 Non-patient / Non-visit 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 Harry Pathak 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 Phone: [facility] Work Phone: Start: 04-26-2023 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 Andreas Pathak 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 Phone: [facility] Work Phone: Start: 04-25-2023 Non-patient / Non-visit 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 Harry Pathak 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 Phone: [facility] Work Phone: Start: 04-25-2023 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 Andreas Pathak 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 Phone: [facility] Work Phone: Start: 04-24-2023 Non-patient / Non-visit 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 R chuck Pathak 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 Phone: [facility] Work Phone: Start: 04-24-2023 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 Andreas Pathak 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 Phone: [facility] Work Phone: Start: 04-23-2023 Non-patient / Non-visit 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 R chuck Pathak 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 Phone: [facility] Work Phone: Start: 04-23-2023 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 Andreas Pathak 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 Phone: [facility] Work Phone: Start: 04-22-2023 Non-patient / Non-visit 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 R chuck Pathak 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 Phone: [facility] Work Phone: Start: 04-22-2023 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 Andreas Pathak 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 Phone: [facility] Work Phone: Start: 04-21-2023 Non-patient / Non-visit 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 R chuck Pathak 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 Phone: [facility] Work Phone: Start: 04-21-2023 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 Andreas Pathak 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 Phone: [facility] Work Phone: Start: 04-20-2023 Evaluation and manag ement of inpatient 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 Andreas Pathak 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 Phone: [facility] Work Phone: Start: 04-20-2023 Non-patient / Non-visit 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 R chuck Pathak 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 Phone: [facility] Work Phone: Start: 04-20-2023 End: 04-27-2023 Evaluation and management of inpatient CLAM DREDGER-Stephen Pathak 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: Start: 04-20-2023 End: 04-27-2023 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 Andreas Pathak 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 Phone: [facility] 3 Work Phone: Start: 04-14-2023 End: 04-14-2023 Patient encounter procedure CLAM DREDGER-Stephen Pathak 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 Phone: [facility] Work Phone: Start: 04-14-2023 End: 04-14-2023 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 Andreas Pathak 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 Phone: [facility] Work Phone: Start: 04-01-2023 End: 04-06-2023 ambulatory 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 - GAMEWELL OPERATOR Facility:B Start: 03-15-2023 End: 03-19-2023 Evaluation and management of inpatient DR MARIELY WAGNER MD Facility:A Start: 03-15-2023 End: 03-16-2023 ambulatory 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 - GAMEWELL OPERATOR Facility:[facility] Start: 03-15-2023 End: 03-19-2023 Evaluation and management of inpatient DR MARIELY WAGNER MD [facility] Start: 03-15-2023 End: 03-15-[address] VANESSA GROSS MD [facility] Start: 03-01-2023 ambulatory ANDREAS TOWNSEND WAXER OPERATOR - GAMEWELL OPERATOR Facility:[facility] Start: 02-22-2023 ambulatory ANDREAS TOWNSEND WAXER OPERATOR - GAMEWELL OPERATOR Facility:[facility] Start: 02-22-2023 End: 03-22-2024 OTHER THERAPY 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 - GAMEWELL OPERATOR [facility] Start: 02-17-2023 End: 02-17-2023 Patient encounter procedure CLAM DREDGER-Stephen Pathak 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 Phone: [facility] Work Phone: Start: 02-17-2023 End: 02-17-2023 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 Andreas Pathak 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 Phone: [facility] Work Phone: Start: 01-13-2023 End: 01-13-2023 Patient encounter procedure CLAM DREDGER-Stephen Pathak 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 Phone: [facility] Work Phone: Start: 11-01-2022 End: 11-01-2022 [facility] Start: 10-15-2022 End: 10-16-2022 ambulatory ANDREAS LUXPKINS WAXER OPERATOR - GAMEWELL OPERATOR Facility:[facility] Start: 10-15-2022 End: 10-15-2022 Patient encounter procedure ANDREAS LUXPKINS WAXER OPERATOR - GAMEWELL OPERATOR [facility] Start: 10-05-2022 End: 10-05-2022 Emergency department patient visit ANDREAS LUXPKINS WAXER OPERATOR - GAMEWELL OPERATOR Facility:[facility] Start: 10-05-2022 End: 10-05-2022 Emergency department patient visit MAGDALENA NICKERSON DO [facility] Start: 09-22-2022 End: 09-23-2022 ambulatory ANDREAS Rod ZO WAXER OPERATOR - GAMEWELL OPERATOR Facility:[facility] Start: 07-20-2022 End: 07-21-2022 Emergency department patient visit [facility] Work Phone: Start: 07-02-2022 End: 07-07-2022 ambulatory ANDRAES LUXPKINS WAXER OPERATOR - GAMEWELL OPERATOR Facility:[facility] Start: 07-02-2022 End: 07-06-2022 Outreach Lab 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 - GAMEWELL OPERATOR [facility] Start: 06-19-2022 End: 06-20-2022 ambulatory ANDREAS LUXPKINS WAXER OPERATOR - GAMEWELL OPERATOR Facility:[facility] Start: 06-19-2022 End: 06-19-2022 Patient encounter procedure 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 - GAMEWELL OPERATOR [facility] Start: 05-13-2022 End: 05-13-2022 Emergency department patient visit DR MERRICK SINGH DO Facility:B Start: 05-13-2022 End: 05-13-2022 Emergency department patient visit DR MERRICK SINGH DO [facility] Start: 03-23-2022 Non-patient / Non-visit 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 R chuck Pathak 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 Phone: [facility] Start: 03-22-2022 Non-patient / Non-visit CLAM DREDGER-C Harry Pathak 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 Phone: [facility] Start: 03-21-2022 Non-patient / Non-visit CLAM DREDGER-C R chuck Pathak 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 Phone: [facility] Start: 03-21-2022 End: 03-24-2022 Evaluation and management of inpatient CLAM DREDGER-C Andreas Pathak 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 Start: 02-04-2022 Non-patient / Non-visit CLAM DREDGER-C R chuck Pathak 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 Phone: [facility] Start: 02-03-2022 Non-patient / Non-visit CLAM DREDGER-C R chuck Pathak 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 Phone: [facility] Start: 02-02-2022 Non-patient / Non-visit CLAM DREDGER-C R chuck Pathak 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 Phone: [facility] Start: 02-01-2022 End: 02-04-2022 Evaluation and management of inpatient CLAM DREDGER-C Andreas Pathak 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 Phone: [facility] 3 Start: 11-14-2021 Non-patient / Non-visit CLAM DREDGER-C R chuck Pathak 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 Phone: [facility] Start: 11-13-2021 Non-patient / Non-visit CLAM DREDGER-C R chuck Pathak 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 Phone: [facility] Start: 11-12-2021 Non-patient / Non-visit CLAM DREDGER-C R chuck Pathak CLAM DREDGER Work Phone: [facility] Start: 11-11-2021 End: 11-14-2021 Evaluation and management of inpatient CLAM DREDGER-C Andreas Pathak CLAM DREDGER [facility] Start: 11-08-2021 Non-patient / Non-visit CLAM DREDGER-C R chuck Pathak CLAM DREDGER Work Phone: [facility] Start: 11-07-2021 Non-patient / Non-visit CLAM DREDGER-C R chuck Pathak CLAM DREDGER Work Phone: [facility] Start: 11-06-2021 Non-patient / Non-visit CLAM DREDGER-C R chuck Pathak CLAM DREDGER Work Phone: [facility] Start: 11-05-2021 End: 11-08-2021 Evaluation and management of inpatient CLAM DREDGER-C Andreas Pathak CLAM DREDGER Work Phone: [facility] Start: 11-05-2021 Non-patient / Non-visit CLAM DREDGER-C Harry Pathak CLAM DREDGER Work Phone: [facility] Start: 10-06-2021 End: 10-06-2021 Emergency department patient visit CLAM DREDGER-Stephen Pathak CLAM DREDGER [facility] Start: 09-30-2021 End: 09-30-2021 Emergency department patient visit CLAM DREDGER-C Andreas Pathak CLAM DREDGER [facility] Start: 08-15-2021 End: 08-15-2021 Patient encounter procedure CLAM DREDGER-Stephen Pathak CLAM DREDGER Work Phone: [facility] Start: 08-14-2021 End: 08-15-2021 Non-patient / Non-visit CLAM DREDGER-C Andreas Pathak CLAM DREDGER Work Phone: [facility] Start: 08-06-2021 End: 08-06-2021 Patient encounter procedure 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 - GAMEWELL OPERATOR [facility] Start: 05-31-2021 Non-patient / Non-visit CLAM DREDGER-C Harry Pathak CLAM DREDGER Work Phone: [facility] Start: 05-30-2021 Non-patient / Non-visit CLAM DREDGER-C Harry Pathak CLAM DREDGER Work Phone: [facility] Start: 05-29-2021 Non-patient / Non-visit CLAM DREDGER-C Harry Pathak CLAM DREDGER Work Phone: [facility] Start: 05-29-2021 End: 06-01-2021 Evaluation and management of inpatient CLAM DREDGER-Stephen Pathak CLAM DREDGER Work Phone: [facility] Start: 05-21-2021 End: 05-22-2021 Emergency department patient visit CLAM DREDGER-C Andreas Ptahak CLAM DREDGER Work Phone: [facility] Start: 05-05-2021 Non-patient / Non-visit CLAM DREDGER-C Harry Pathak CLAM DREDGER Work Phone: [facility] Start: 05-05-2021 Non-patient / Non-visit CLAM DREDGER-C Harry Pathak CLAM DREDGER Work Phone: [facility] Start: 05-05-2021 Non-patient / Non-visit CLAM DREDGER-C Harry Pathak CLAM DREDGER Work Phone: [facility] Start: 05-04-2021 End: 05-05-2021 [facility] Start: 05-02-2021 End: 05-02-2021 Emergency department patient visit DR SHILPI BURNS MD [facility] Start: 04-09-2021 End: 04-09-2021 Patient encounter procedure 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 - GAMEWELL OPERATOR [facility] Start: 08-25-2018 Notes/Results Only Other Other NOTE S/RESULTS Start: 08-25-2018 End: 08-25-2018 Patient encounter procedure Other Other [facility] Start: 07-15-2018 Patient encounter procedure LYSSA MONTERROSO Facility:[facility] Start: 04-08-2018 Patient encounter procedure LYSSA MONTERROSO Facility:[facility] Start: 01-14-2018 End: 01-15-2018 Patient encounter procedure LYSSA MONTERROSO Facility:[facility] Start: 11-09-2017 End: 11-09-2017 Emergency department patient visit BANDAR DAIGLE [facility] Start: 11-01-2017 Patient encounter procedure UMAIR LARKIN Facility:[facility] Start: 07-01-2017 Patient encounter procedure LYSSA MONTERROSO Facility:[facility] Start: 04-29-2017 End: 04-29-2017 Patient encounter procedure UMAIR LARKIN Facility:[facility] Start: 03-16-2016 End: 03-20-2016 Patient encounter status Marianna Wagner APRN.GAMEWELL OPERATOR Work Phone: [facility] Procedures Date Procedure Procedure Detail Performing Clinician Start: 08-28-2024 D-dimer assay, quantitative Dr. Rolan Romero DO Work Phone: Start: 08-28-2024 X-ray of chest, PA and lateral views Dr. Rolan Romero DO Work Phone: Start: 08-28-2024 Urine microscopy: red cells Dr. Rolan Romero DO Work Phone: Start: 08-28-2024 Urnls dip stick/tablet reagent auto microscopy Dr. Rolan Romero DO Work Phone: Start: 08-28-2024 Blood count smear mcrscp w/mnl difrntl wbc count Dr. Rolan Romero DO Work Phone: Start: 08-28-[address] Rolan Romero DO Work Phone: Start: 08-28-2024 Mean corpuscular hemoglobin concentration determination Dr. Rolan Romero DO Work Phone: Start: 08-28-2024 Nucleated red blood cell count procedure Dr. Rolan Romero DO Work Phone: Start: 08-28-2024 Platelet mean volume determination Dr. Tayla Romero DO Work Phone: Start: 08-03-2024 Blood count smear mcrscp w/mnl [...] Start: 07-04-2024 Gliadin antibody, IgA measurement No [facility] Phys[facility] Start: 07-04-2024 Gliadin antibody, IgG measurement No [facility] Phys[facility] Start: 07-04-2024 Immunoglobulin M measurement No Primary Care Physician Start: 07-04-2024 In-vitro immunologic test No Primary Car e Physician Start: 07-04-2024 RN SURGERY ICU antibody measurement No Primary Care Physician Start: [...] Physician Start: 06-26-2024 Polymorphonuclear leukocyte count No Aneta andrew Care Physician Start: 06-26-2024 Anaerobic microbial culture [...] dx w/collj spec when pfrmd Susana Ramirez WAXER OPERATOR.GAMEWELL OPERATOR Work Phone: Start: 04-05-2024 Esophagogastroduodenoscopy transoral diagnostic Susana Ramirez WAXER OPERATORLynnetteGAMEWELL OPERATOR Work Phone: Start: 04-05-2024 Gluc bld gluc mntr dev cleared fda spec home use Lucas Delarosa WAXER OPERATOR.SOFTWARE SALES REPRESENTATIVE Work Phone: Start: 04-05-2024 PACER OR ICD CHECK (KS,ME) Phoebe pitts MD Work Phone: Start: 04-05-2024 Colonoscopy Phoebe Vazquez MD Work Phone: Start: 10-21-2023 Ct abdomen & pelvis w/o contrast material Marianna A Queden WAXER OPERATOR.GAMEWELL OPERATOR Work Phone: Start: 08-09-2023 Culture bacterial quanttative colony count urine Marianna A Queden WAXER OPERATOR.GAMEWELL OPERATOR Work Phone: Start: 08-09-2023 Urnls dip stick/tablet rgnt auto w/o microscopy Marianna A Queden WAXER OPERATOR.GAMEWELL OPERATOR Work Phone: Start: 05-16-2023 Measurement of occult blood in stool specimen using immunoassay CLAM DREDGER-C Andreas Pathak CLAM DREDGER Work Phone: Start: 05-11-2023 US urinary tract CLAM DREDGER-C Andreas Pathak CLAM DREDGER Work Phone: Start: 05-10-2023 Urine culture CLAM DREDGER-C Andreas Pathak CLAM DREDGER Work Phone: Start: 05-10-2023 CLAM DREDGER-C Andreas Pathak CLAM DREDGER Work Phone: Start: 05-09-2023 Computed tomography of abdomen and pelvis with intravenous contrast CLAM DREDGER-C Andreas Pathak CLAM DREDGER Work Phone: Start: 05-09-2023 Plain chest X-ray CLAM DREDGER-C Andreas Pathak CLAM DREDGER Work Phone: Start: 04-23-2023 CT of head without contrast CLAM DREDGER-C Andreas Pathak CLAM DREDGER Work Phone: Start: 04-20-2023 Computed tomography of abdomen and pelvis with intravenous contrast CLAM DREDGER-C Andreas Pathak CLAM DREDGER Work Phone: Start: 02-01-2022 Plain chest X-ray CLAM DREDGER-C Andreas Pathak CLAM DREDGER Work Phone: Start: 09-30-2021 Plain chest X-ray CLAM DREDGER-C Andreas Pathak CLAM DREDGER Work Phone: Start: 05-30-2021 Ultrasonography of abdomen CLAM DREDGER-C Andreas Pathak CLAM DREDGER Work Phone: Start: 05-21-2021 End: 05-21-2021 Viral antigen assay CLAM DREDGER-Stephen Andreas Luxpkins CLAM DREDGER Work Phone: Start: 05-05-2021 Cardiovascular stress test using pharmacologic stress agent CLAM DREDGER-Stephen Root Zo CLAM DREDGER Work Phone: Start: 05-04-2021 Plain chest X-ray Start: 11-09-2017 Urinalysis BANDAR DAIGLE Comment on above: Result Comment: URINALYSIS Performed By: #### [id number] ####[facility],[address] [place] [address] Start: 11-09-2017 Microscopic examination of blood, culture BANDAR DAIGLE Comment on above: Performed By: #### [id number] ####[facility],[address] [place] [address] Pacemaker catheter, device (physical object) ANDREAS ZO WAXER OPERATOR - GAMEWELL OPERATOR Repair of thoracic aortic aneurysm 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 - GAMEWELL OPERATOR Replacement of aortic valve 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 - GAMEWELL OPERATOR Plan of Treatment Date Care Activity Detail Author Start: 08-08-2028 Prostate specific antigen measurement Prostate Cancer Screening Discussion [facility] Start: 04-12-2025 Complete blood count Hemoglobin/Hematocrit [facility] Start: 04-05-2025 Screening for malignant neoplasm of colon [facility] Start: 12-26-2024 Annual PCP Team Chronic Disease Visit Annual PCP Team Chronic Disease Visit [facility] Start: 12-26-2024 BP Controlled (<130/80) BP Controlled (<130/80) [facility] in Start: 10-14-2024 Complete blood count Hemoglobin/Hematocrit [facility] Start: 10-14-2024 Creatinine measurement Serum Creatinine [facility] Start: 10-14-2024 Hepatitis B screening Urine Albumin:Creatinine Ratio [facility] Start: 10-13-2024 Annual PCP Team Chronic Disease Visit Annual PCP Team Chronic Disease Visit [facility] Start: 10-13-2024 BP Controlled (<130/80) BP Controlled (<130/80) [facility] in Start: 10-13-2024 Screening for malignant neoplasm of colon [facility] Start: 10-09-2024 Influenza vaccination [facility] Start: 09-24-2024 Creatinine measurement Serum Creatinine [facility] Start: 09-11-2024 Hemoglobin A1c measurement HbA1C [facility] Start: 08-29-2024 Verification routine [facility] Start: 08-29-2024 Admission procedure [facility] Start: 08-28-2024 Hospital admission, emergency, from emergency room, medical nature [facility] Start: 08-28-2024 [facility] Start: 08-28-2024 [facility] Start: 08-08-2024 Annual PCP Team Chronic Disease Visit Annual PCP Team Chronic Disease Visit [facility] Start: 08-08-2024 BP Controlled (<130/80) BP Controlled (<130/80) [facility] in Start: 08-08-2024 Complete blood count Hemoglobin/Hematocrit [facility] Start: 08-08-2024 Creatinine measurement Serum Creatinine [facility] Start: 08-08-2024 Hepatitis B surface antibody level LDL Cholesterol [facility] Start: 08-03-2024 Patient discharge [facility] Start: 08-02-2024 [facility] Start: 08-02-2024 Referral to vascular surgeon [facility] Start: 08-01-2024 Following clinical pathway protocol [facility] Start: 08-01-2024 Application of elastic bandage [facility] Start: 08-01-2024 Assessment of risk of venous thromboembolism [facility] Start: 08-01-2024 Care regimes management [facility] Start: 08-01-2024 Elevation of affected extremity [facility] Start: 08-01-2024 Fall prevention [facility] Start: 08-01-2024 Inhalation therapy procedure [facility] Start: 08-01-2024 Insertion of catheter into peripheral vein [facility] Start: 08-01-2024 Introduction of urinary catheter [facility] Start: 08-01-2024 Measuring intake and output [facility] Start: 08-01-2024 Notification of physician [facility] Start: 08-01-2024 Oxygen therapy [facility] Start: 08-01-2024 Patient education [facility] Start: 08-01-2024 Patient referral to dietitian [facility] Start: 08-01-2024 Providing care according to standard [facility] Start: 08-01-2024 Provision of activity privileges [facility] Start: 08-01-2024 Referral to occupational therapist [facility] Start: 08-01-2024 Referral to service [facility] Start: 08-01-2024 Tobacco use cessation education [facility] Start: 08-01-2024 End: 08-01-2024 [facility] Start: 08-01-2024 Hospital admission, emergency, from emergency room, medical nature [facility] Start: 08-01-2024 Verification routine [facility] Start: 08-01-2024 Admission procedure [facility] Start: 08-01-2024 Consultation [facility] Start: 08-01-2024 Patient referral to dietitian [facility] Start: 08-01-2024 [facility] Start: 07-14-2024 Patient discharge [facility] Start: 07-13-2024 [facility] Start: 07-13-2024 Referral to service [facility] Start: 07-13-2024 End: 07-13-2024 ambulatory [facility] Laboratory Comment on above: LABS 3MO OV/EARLY LABS* Start: 07-13-2024 Following clinical pathway protocol [facility] Start: 07-12-2024 [facility] Start: 07-12-2024 Referral to service [facility] Start: 07-11-2024 Ambulation without limitation [facility] Start: 07-11-2024 Assessment of risk of venous thromboembolism [facility] Start: 07-11-2024 Care regimes management [facility] Start: 07-11-2024 Inhalation therapy procedure [facility] Start: 07-11-2024 Insertion of catheter into peripheral vein [facility] Start: 07-11-2024 Measuring intake and output [facility] Start: 07-11-2024 Notification of physician [facility] Start: 07-11-2024 Patient referral to dietitian [facility] Start: 07-11-2024 Providing care according to standard [facility] Start: 07-11-2024 Referral to general surgeon [facility] Start: 07-11-2024 Referral to service [facility] Start: 07-11-2024 End: 07-11-2024 [facility] Start: 07-11-2024 Following clinical pathway protocol [facility] Start: 07-11-2024 Verification routine [facility] Start: 07-11-2024 Admission procedure [facility] Start: 07-11-2024 Hospital admission, emergency, from emergency room, medical nature [facility] Start: 07-11-2024 [facility] Start: 07-11-2024 Patient referral to dietitian [facility] Start: 07-06-2024 Patient discharge [facility] Start: 07-03-2024 Referral to soft sugar cutter [place] Start: 07-03-2024 In-vitro immunologic test [facility] Start: 07-03-2024 Laboratory test [facility] Start: 07-03-2024 Serum immunofixation [facility] Start: 07-03-2024 [facility] Start: 07-03-2024 Inhalation therapy procedure [facility] Start: 07-02-2024 Referral to gastroenterology service [facility] Start: 07-01-2024 [facility] Start: 07-01-2024 Application of intermittent pneumatic compression device [facility] Start: 07-01-2024 Physiotherapy of chest [facility] Start: 06-30-2024 Following clinical pathway protocol [facility] Start: 06-30-2024 Aspiration precautions [facility] Start: 06-30-2024 Assessment of risk of venous thromboembolism [facility] Start: 06-30-2024 Care regimes management [facility] Start: 06-30-2024 Catheterization of vein [facility] Start: 06-30-2024 Insertion of catheter into peripheral vein [facility] Start: 06-30-2024 Measuring intake and output [facility] Start: 06-30-2024 Notification of physician [facility] Start: 06-30-2024 Oxygen therapy [facility] Start: 06-30-2024 Providing care according to standard [facility] Start: 06-30-2024 Provision of activity privileges [facility] Start: 06-30-2024 Referral to service [facility] Start: 06-30-2024 End: 06-30-2024 [facility] Start: 06-30-2024 Admission procedure [facility] Start: 06-30-2024 Patient referral to dietitian [facility] Start: 06-30-2024 [facility] Start: 06-28-2024 Patient discharge [facility] Start: 06-27-2024 [facility] Start: 06-26-2024 Application of intermittent pneumatic compression device [facility] Start: 06-26-2024 Following clinical pathway protocol [facility] Start: 06-26-2024 End: 06-26-2024 Microbial culture, body fluid [facility] Start: 06-26-2024 Anaerobic Culture Anaerobic Culture [facility] Start: 06-26-2024 Referral to service [facility] Start: 06-26-2024 Following clinical pathway protocol [facility] Start: 06-26-2024 Aspiration precautions [facility] Start: 06-26-2024 Assessment of risk of venous thromboembolism [facility] Start: 06-26-2024 Care regimes management [facility] Start: 06-26-2024 Documentation procedure [facility] Start: 06-26-2024 Inhalation therapy procedure [facility] Start: 06-26-2024 Insertion of catheter into peripheral vein [facility] Start: 06-26-2024 Measuring intake and output [facility] Start: 06-26-2024 Notification of physician [facility] Start: 06-26-2024 Oxygen therapy [facility] Start: 06-26-2024 Providing care according to standard [facility] Start: 06-26-2024 Provision of activity privileges [facility] Start: 06-26-2024 Referral to gastroenterology service [facility] Start: 06-26-2024 Referral to service [facility] Start: 06-26-2024 Seizure precautions [facility] Start: 06-26-2024 Tobacco use cessation education [facility] Start: 06-26-2024 End: 06-26-2024 [facility] Start: 06-26-2024 Care of central venous catheter [facility] Start: 06-26-2024 Following clinical pathway protocol [facility] Start: 06-26-2024 Patient referral to dietitian [facility] Start: 06-25-2024 Centesis [facility] Start: 06-25-2024 Verification routine [facility] Start: 06-25-2024 Admission procedure [facility] Start: 06-25-2024 Hospital admission, emergency, from emergency room, medical nature [facility] Start: 06-25-2024 Clostridioides difficile (PCR) Clostridioides difficile (PCR) [facility] Start: 06-25-2024 Enteric Bacteriology Enteric Bacteriology [facility] Start: 06-25-2024 Ova and Parasites Ova and Parasites [facility] Start: 06-25-2024 Stool Lactoferrin Stool Lactoferrin [facility] Start: 04-12-2024 End: 04-12-2024 ambulatory [facility] Laboratory Comment on above: LABS* LABS EARLY/OV/EGD & COLONOSCOPY 04/05* Start: 04-05-2024 End: 04-05-2024 Patient encounter procedure [facility] Endoscopy Comment on above: Colon EGD- PLEASE DO NOT CANCEL THIS PAT IENT Start: 03-29-2024 End: 03-29-2024 ambulatory [facility] Laboratory Comment on above: LABS* LABS EARLY / OV/EGD & COLONOSCOPY 03/16* Start: 03-16-2024 End: 03-16-2024 Patient encounter procedure 03/16/2024 11:00 AM EST Appointment [facility] [address] [place] [address] Phoebe Vazquez MD [address] [place] [id number] Anemia, unspecified type [D64.9]; Weight loss [R63.4 [facility] Comment on above: Anemia, unspecified type [D64.9]; Weight loss [R63.4 Start: 03-08-2024 End: 06-07-2024 Hemoglobin A1c in Blood HEMOGLOBIN A1C Lab Routine Type 2 diabetes mellitus with complication, with long-term current use of insulin (HCC) Expected: 03/08/2024, Expires: 06/07/2024 [facility] Work Phone: Comment on above: Expected: 03/08/2024, Expires: Start: 02-28-2024 End: 01-20-2025 Patient encounter procedure 02/28/2024 10:20 AM EST Office Visit [facility] [address] [place] [address] Marianna Wagner, WAXER OPERATOR.GAMEWELL OPERATOR [address] [place] [address] follow up diabetes [facility] Comment on above: follow up diabetes Start: 02-09-2024 Hemoglobin A1c measurement HbA1C [facility] Start: 01-17-2024 End: 04-17-2024 CBC W Auto Differential panel - Blood COMPLETE BLOOD COUNT AND DIFFERENTIAL Lab STAT Anemia, unspecified type Expected: 01/17/2024, Expires: 04/17/2024 [facility] Work Phone: Comment on above: Expected: 01/17/2024, Expires: Start: 01-14-2024 End: 01-14-2024 ambulatory [facility] Laboratory Comment on above: LABS? 2MO OV/LABS EARLY* Start: 01-07-2024 End: 01-07-2024 Patient encounter procedure 01/07/2024 10:00 AM EST Appointment Ambulatory Surgery [address] [address] Amy Kohli MD [address] [place], [place] [id number] Anemia, unspecified type [D64.9]; Weight loss [R63.4] Ambulatory Surgery Comment on above: Anemia, unspecified type [D64.9]; Weight loss [R63.4] Start: 12-31-2023 End: 12-31-2023 Anesthesia consultation 12/31/2023 11:59 PM EST Anesthesia Event Ambulatory Surgery [address] [place] [address] [address] Sabra Desouza, WAXER OPERATOR.SOFTWARE SALES REPRESENTATIVE [address] [place] [address] Ambulatory Surgery Start: 12-27-2023 End: 12-27-2023 Patient encounter procedure 12/27/2023 2:00 PM EST Office Visit [facility] [address] [place] [address] Marianna Wagner APRN.GAMEWELL OPERATOR [address] [place] [address] 3 MTH F/U DM [facility] Comment on above: 3 MTH F/U DM Start: 12-24-2023 End: 12-24-2023 Patient encounter procedure 12/24/2023 11:20 AM EST Office Visit [facility] [place] [address] [place] [address] Susana Ramirez APRN.GAMEWELL OPERATOR [address] [place] [address] referred by pcp for anemia, currently being [...] Appointment Cat Scan [address] [place], [place] [id number] Diarrhea, unspecified type [R19.7] Cat Scan Comment on above: Diarrhea, unspecified type [R19.7] Start: 11-15-2023 End: 11-15-2023 ambulatory 11/15/2023 10:30 AM EDT Visit (SP) Office Hematology/Oncology [address] [place] [phone] Vandana Edwards [address] [place] [address] CLAM DREDGER/ANEMIA/REF MARIANNA WAGNER* resched 10/24, 11/07 this date and time per patient Hematology/Oncology Comment on above: CLAM DREDGER/ANEMIA/REF MARIANNA QUEDEN* resched , 11/07 this date and time per patient Start: 11-09-2023 End: 11-09-2023 Patient encounter procedure 11/09/2023 1:20 PM EDT Office Visit [facility] [address] [place] [address] Marianna Wagner APRN.GAMEWELL OPERATOR [address] [place] [address] 3 MTH F/U DM [facility] Comment on above: 3 MTH F/U DM Start: 11-08-2023 End: 10-20-2024 CT Pancreas W contrast IV CT PANCREAS W IVCON Radiology Routine Diarrhea, unspecified type Acute pancreatitis, unspecified complication status, unspecified pancreatitis type Expected: 11/08/2023, Expires: 10/20/2024 [facility] Work Phone: Comment on above: Expected: 11/08/2023, Expires: Start: 11-08-2023 End: 11-08-2023 ambulatory 11/08/2023 10:30 AM EDT Visit (SP) Office Hematology/Oncology [address] [place] [address] Vandana Edwards [address] [place] [address] CLAM DREDGER/ANEMIA/REF MARIANNA WAGNER* resched 10/24 this date and time per patient Hematology/Oncology Comment on above: CLAM DREDGER/ANEMIA/REF MARIANNA QUEDEN* resched this date and time per patient Start: 11-02-2023 End: 11-02-2023 Patient encounter procedure 11/02/2023 3:05 PM EDT Office [address] [address] [place] [phone] Susana Ramirez APRN.GAMEWELL OPERATOR [address] [place] [address] referred by pcp for anemia, currently being treated for e-coli and cdiff [facility] [place] Comment on above: referred by pcp for anemia, currently be ing treated for e-coli and cdiff Start: 10-25-2023 End: 10-25-2023 ambulatory 10/25/2023 10:30 AM EDT Visit (SP) Office Hematology/Oncology [address] [place], [place] [id number] Vandana Edwards [address] [place] [address] CLAM DREDGER/ANEMIA/REF MARIANNA WAGNER* Hematology/Oncology Comment on above: CLAM DREDGER/ANEMIA/REF MARIANNA WAGNER* Start: 10-21-2023 End: 10-21-2023 Patient encounter procedure 10/21/2023 2:20 PM EDT Appointment Cat Scan [address] [place], [place] [phone] CCN was accepted, Cat Scan Comment on above: CCN was accepted, Start: 10-14-2023 End: 10-14-2023 Patient encounter procedure 10/14/2023 11:20 AM EDT Office Visit [facility] [address] [place] [address] Marianna Wagner, WAXER OPERATOR.GAMEWELL OPERATOR [address] [place] [address] Follow up blood work results [facility] Comment on above: Follow up blood work results Start: 10-10-2023 Covid-19 Vaccine () Covid-19 Vaccine ( season) [facility] Start: 10-10-2023 Covid-19 Vaccine () Covid-19 Vaccine () [facility] Start: 10-10-2023 Influenza vaccination Influenza Vaccine (#1) [facility] Start: 10-07-2023 End: 01-06-2024 CBC W Auto Differential panel - Blood COMPLETE BLOOD COUNT AND DIFFERENTIAL Lab Routine Anemia, unspecified type Expected: 10/07/2023, Expires: 01/06/2024 [facility] Comment on above: Expected: 10/07/2023, Expires: Start: 10-07-2023 End: 10-06-2024 Cobalamin (Vitamin B12) [Mass/volume] in Serum or Plasma VITAMIN B12 Lab Routine Anemia, unspecified type Expected: 10/07/2023, Expires: 10/06/2024 [facility] Comment on above: Expected: 10/07/2023, Expires: Start: 10-07-2023 End: 01-06-2024 Comprehensive metabolic 2000 panel - Serum or Plasma COMPREHENSIVE METABOLIC PANEL Lab Routine Chronic diarrhea Expected: 10/07/2023, Expires: 01/06/2024 [facility] Comment on above: Expected: 10/07/2023, Expires: Start: 10-07-2023 End: 10-06-2024 Ferritin [Mass/volume] in Serum or Plasma FERRITIN Lab Routine Anemia, unspecified type Expected: 10/07/2023, Expires: 10/06/2024 [facility] Comment on above: Expected: 10/07/2023, Expires: Start: 10-07-2023 End: 10-06-2024 Folate [Mass/volume] in Serum or Plasma FOLATE, SERUM Lab Routine Anemia, unspecified type Expected: 10/07/2023, Expires: 10/06/2024 [facility] Comment on above: Expected: 10/07/2023, Expires: Start: 10-07-2023 End: 10-06-2024 Iron and Iron binding capacity panel - Serum or Plasma IRON AND TIBC Lab Routine Anemia, unspecified type Expected: 10/07/2023, Expires: 10/06/2024 [facility] Work Phone: Comment on above: Expected: 10/07/2023, Expires: 5 Start: 09-24-2023 End: 09-24-2023 Patient encounter procedure 09/24/2023 3:05 PM EDT Office Visit [facility] [place] [address] [phone] Susana Ramirez APRN.GAMEWELL OPERATOR [address] [place] [address] referred by pcp for diarrhea(recent tests at [facility]) [facility] [place] Comment on above: referred by pcp for diarrhea(recent test s at [facility]) Start: 09-24-2023 End: 12-24-2023 CBC W Auto Differential panel - Blood COMPLETE BLOOD COUNT AND DIFFERENTIAL Lab Routine Diarrhea of presumed infectious origin Generalized abdominal pain Expected: 09/24/2023, Expires: 12/24/2023 [facility] Comment on above: Expected: 09/24/2023, Expires: 4 Start: 09-24-2023 End: 12-24-2023 Clostridioides difficile toxin genes [Presence] in Stool by GENEVA with probe detection C. DIFFICILE PCR Lab Routine Diarrhea of presumed infectious origin Expected: 09/24/2023, Expires: 12/24/2023 [facility] Comment on above: Expected: 09/24/2023, Expires: 4 Start: 09-24-2023 End: 12-24-2023 Comprehensive metabolic 2000 panel - Serum or Plasma COMPREHENSIVE METABOLIC PANEL Lab Routine Diarrhea of presumed infectious origin Generalized abdominal pain Expected: 09/24/2023, Expires: 12/24/2023 [facility] Comment on above: Expected: 09/24/2023, Expires: 4 Start: 09-24-2023 End: 12-24-2023 Giardia lamblia+Cryptosporidium sp Ag [Presence] in Stool by Immunoassay CRYPTOSPORIDIUM AND GIARDIA ANTIGENS BY EIA Microbiology Routine Diarrhea of presumed infectious origin Expected: 09/24/2023, Expires: 12/24/2023 [facility] Comment on above: Expected: 09/24/2023, Expires: 4 Start: 08-13-2023 End: 11-12-2023 Hemoglobin A1c in Blood [facility] Comment on above: Expected: 08/13/2023, Expires: Start: 05-20-2023 Patient discharge [facility] Start: 05-20-2023 Procedure discontinued [facility] Start: 05-19-2023 Administration of blood product [facility] Start: 05-15-2023 Application of elastic bandage [facility] Start: 05-13-2023 Referral to patient biller [facility] Start: 05-11-2023 Referral to occupational therapist [facility] Start: 05-10-2023 Methicillin resistant Staphylococcus aureus screening test [facility] Start: 05-10-2023 Care regimes management [facility] Start: 05-10-2023 [facility] Start: 05-10-2023 Cardiac monitoring [facility] Start: 05-10-2023 Catheterization of vein [facility] Start: 05-10-2023 End: 05-10-2023 Notification of physician [facility] Start: 05-10-2023 Thyroid stimulating hormone measurement [facility] Start: 05-10-2023 End: 05-11-2023 [facility] Start: 05-09-2023 Application of intermittent pneumatic compression device [facility] Start: 05-09-2023 Following clinical pathway protocol [facility] Start: 05-09-2023 Aspiration precautions [facility] Start: 05-09-2023 Assessment of risk of venous thromboembolism [facility] Start: 05-09-2023 Documentation procedure [facility] Start: 05-09-2023 Incentive spirometry [facility] Start: 05-09-2023 Insertion of catheter into peripheral vein [facility] Start: 05-09-2023 Measuring intake and output [facility] Start: 05-09-2023 Oxygen therapy [facility] Start: 05-09-2023 Providing care according to standard [facility] Start: 05-09-2023 Provision of activity privileges [facility] Start: 05-09-2023 Referral to service [facility] Start: 05-09-2023 Seizure precautions [facility] Start: 05-09-2023 End: 05-10-2023 [facility] Start: 05-09-2023 Verification routine [facility] Start: 05-09-2023 Admission procedure [facility] Start: 05-09-2023 Patient referral to dietitian [facility] Start: 04-27-2023 Patient discharge [facility] Start: 04-23-2023 Referral to occupational therapist [facility] Start: 04-23-2023 End: 04-23-2023 Referral to service [facility] Start: 04-21-2023 [facility] Start: 04-20-2023 Following clinical pathway protocol [facility] Start: 04-20-2023 Ambulation without limitation [facility] Start: 04-20-2023 Assessment of risk of venous thromboembolism [facility] Start: 04-20-2023 Care regimes management [facility] Start: 04-20-2023 Insertion of catheter into peripheral vein [facility] Start: 04-20-2023 Notification of physician [facility] Start: 04-20-2023 Providing care according to standard [facility] Start: 04-20-2023 [facility] Start: 04-20-2023 Verification routine [facility] Start: 04-20-2023 Admission procedure [facility] Start: 04-20-2023 Blood chemistry [facility] Start: 04-20-2023 Triacylglycerol lipase measurement [facility] Start: 04-20-2023 [facility] Start: 10-09-2022 Covid-19 Vaccine (2022- season) Covid-19 Vaccine ( season) [facility] Start: 2022 Hepatitis B Vaccine (1 of 3 - Risk 3-dose series) Hepatitis B Vaccine (1 of 3 - Risk 3-dose series) [facility] Start: 2022 RSV Vaccine (1 - 1-dose 60+ series) RSV Vaccine (1 - 1-dose 60+ series) [facility] Start: 2022 RSV Vaccine (1 - Risk 60-74 years 1-dose series) RSV Vaccine (1 - Risk 60-74 years 1-dose series) [facility] Start: 03-24-2022 Patient discharge [facility] Start: 03-23-2022 Referral to service [facility] Start: 03-23-2022 Referral to occupational therapist [facility] Start: 03-21-2022 Aspiration precautions [facility] Start: 03-21-2022 Assessment of risk of venous thromboembolism [facility] Start: 03-21-2022 Care regimes management [facility] Start: 03-21-2022 Fall prevention [facility] Start: 03-21-2022 Introduction of urinary catheter [facility] Start: 03-21-2022 Notification of physician [facility] Start: 03-21-2022 Oxygen therapy [facility] Start: 03-21-2022 Referral to service [facility] Start: 03-21-2022 Vital signs measurements [place] Start: 03-21-2022 [facility] Start: 03-21-2022 Verification routine [facility] Start: 03-21-2022 Admission procedure [facility] Start: 03-21-2022 Patient referral to dietitian [facility] Start: 02-04-2022 Patient discharge [facility] Start: 02-01-2022 Ambulation without limitation [facility] Start: 02-01-2022 Assessment of risk of venous thromboembolism [facility] Start: 02-01-2022 Care regimes management [facility] Start: 02-01-2022 Fall prevention [facility] Start: 02-01-2022 Inhalation therapy procedure [facility] Start: 02-01-2022 Insertion of catheter into peripheral vein [facility] Start: 02-01-2022 Measuring intake and output [facility] Start: 02-01-2022 Notification of physician [facility] Start: 02-01-2022 Oxygen therapy [facility] Start: 02-01-2022 Providing care according to standard [facility] Start: 02-01-2022 Provision of activity privileges [facility] Start: 02-01-2022 Referral to service [facility] Start: 02-01-2022 Vital signs measurements [place] Start: 02-01-2022 [facility] Start: 02-01-2022 Following clinical pathway protocol [facility] Start: 02-01-2022 Verification routine [facility] Work Phone: Start: 02-01-2022 Admission procedure [facility] Start: 02-01-2022 Blood chemistry [facility] Work Phone: Start: 02-01-2022 Lipase measurement [facility] Work Phone: Start: 02-01-2022 End: 02-01-2022 [facility] Work Phone: Start: 02-01-2022 Patient referral to dietitian [facility] Start: 11-14-2021 Patient discharge [facility] Work Phone: Start: 11-11-2021 Assessment of risk of venous thromboembolism [facility] Work Phone: Start: 11-11-2021 Care regimes management [facility] Work Phone: Start: 11-11-2021 Insertion of catheter into peripheral vein [facility] Work Phone: Start: 11-11-2021 Introduction of urinary catheter [facility] Work Phone: Start: 11-11-2021 Measuring intake and output [facility] Work Phone: Start: 11-11-2021 Notification of physician [facility] Work Phone: Start: 11-11-2021 Providing care according to standard [facility] Work Phone: Start: 11-11-2021 Provision of activity privileges [facility] Work Phone: Start: 11-11-2021 Referral to service [facility] Work Phone: Start: 11-11-2021 Vital signs measurements [place] Work Phone: Start: 11-11-2021 [facility] Work Phone: Start: 11-11-2021 Following clinical pathway protocol [facility] Work Phone: Start: 11-11-2021 Admission procedure [facility] Work Phone: Start: 11-11-2021 Patient referral to dietitian [facility] Work Phone: Start: 11-08-2021 Patient discharge [facility] Work Phone: Start: 11-06-2021 [facility] Work Phone: Start: 11-05-2021 Referral to service [facility] Work Phone: Start: 11-05-2021 Patient referral to dietitian [facility] Work Phone: Start: 11-05-2021 Ambulation without limitation [facility] Work Phone: Start: 11-05-2021 Assessment of risk of venous thromboembolism [facility] Work Phone: Start: 11-05-2021 Care regimes management [facility] Work Phone: Start: 11-05-2021 Insertion of catheter into peripheral vein [facility] Work Phone: Start: 11-05-2021 Notification of physician [facility] Work Phone: Start: 11-05-2021 Providing care according to standard [facility] Work Phone: Start: 11-05-2021 [facility] Work Phone: Start: 11-05-2021 Verification routine [facility] Work Phone: Start: 11-05-2021 Admission procedure [facility] Work Phone: Start: 11-05-2021 End: 11-05-2021 Following clinical pathway protocol [facility] Work Phone: Start: 11-05-2021 Patient discharge [facility] Work Phone: Start: 10-06-2021 Suicide precautions [facility] Work Phone: Start: 10-09-2018 Influenza vaccination INFLUENZA VACCINE (#1) [facility] Start: 03-23-2017 Diabetic foot examination Diabetic Foot Exam [facility] Start: 06-07-2016 Hemoglobin A1c measurement HbA1C [facility] Start: 2012 Colonoscopy COLON CANCER SCREENING DISCUSSION [facility] Start: 2012 Prostate specific antigen measurement PROSTATE CANCER SCREENING DISCUSSION [facility] Start: 2012 Shingrix Vaccine (1 of 2) Shingrix Vaccine (1 of 2) [facility] Start: 2012 Zoster vaccine hzv live for subcutaneous use ZOSTER (SHINGLES) VACCINE (1 of 2) [facility] Start: 07-30-2007 Screening for malignant neoplasm of colon [facility] Start: 2002 Fasting lipid profile LIPID SCREENING [facility] Start: 1981 Hepatitis A Vaccine (1 of 2 - Risk 2-dose series) Hepatitis A Vaccine (1 of 2 - Risk 2-dose series) [facility] Start: 1981 Pneumococcal Vaccine: 50+ (1 of 2 - PCV) Pneumococcal Vaccine: 50+ (1 of 2 - PCV) [facility] Start: 1981 Third diphtheria, tetanus and acellular pertussis (DTaP) vaccination TDAP (ADULT) [facility] Start: 1981 Urine microalbumin profile DTaP,Tdap,Td Vaccine (1 - Tdap) [facility] Start: 1980 Anxiety Screening Anxiety Screening [facility] Start: 1980 BP Controlled (<130/80) BP Controlled (<130/80) [facility] Start: 1980 Tetanus vaccination TETANUS [facility] Start: 07-30-1975 HIV screening HIV SCREENING DISCUSSION [facility] Start: 1972 Glaucoma screening Dilated Retinal Exam [facility] Start: 1972 Hepatitis B screening Urine Albumin:Creatinine Ratio [facility] Start: 1968 Pneumococcal vaccination Pneumococcal Vaccine (1 of 2 - PCV) [facility] Start: 1962 Hepatitis C antibody, confirmatory test HEPATITIS C VIRUS SCREENING [facility] Alanine aminotransfe rase [Enzymatic activity/volume] in Serum or Plasma [facility] Alanine aminotransfe rase [Enzymatic activity/volume] in Serum or Plasma [facility] Alanine aminotransfe rase [Enzymatic activity/volume] in Serum or Plasma [facility] Albumin [Mass/volume ] in Serum or Plasma [facility] Albumin [Mass/volume ] in Serum or Plasma [facility] Albumin [Mass/volume ] in Serum or Plasma [facility] Albumin [Moles/volum e] in Serum or Plasma [facility] Albumin/Globulin ratio [facility] Alkaline phosphatase [Enzymatic activity/volume] in Serum or Plasma [facility] Alkaline phosphatase [Enzymatic activity/volume] in Serum or Plasma [facility] Alkaline phosphatase [Enzymatic activity/volume] in Serum or Plasma [facility] Amphetamine [Mass/volume] in Urine [facility] Amphetamine [Mass/volume] in Urine [facility] Amphetamine [Mass/volume] in Urine [facility] Amphetamines [Presen ce] in Urine by Screen method >1000 ng/mL [facility] Anion gap in Serum o r Plasma [facility] Anion gap measurement [facility] Anion gap measurement [facility] Anion gap measurement [facility] Aspartate aminotransferase [Enzymatic activity/volume] in Serum or Plasma [facility] Aspartate aminotransferase [Enzymatic activity/volume] in Serum or Plasma [facility] Aspartate aminotransferase [Enzymatic activity/volume] in Serum or Plasma [facility] Bacteria identified in Unspecified specimen by Anaerobe culture [facility] Basic metabolic 2008 panel with ionized calcium - Serum or Plasma [facility] Benzodiazepine measurement, urine [facility] Benzodiazepine measurement, urine [facility] Benzodiazepine measurement, urine [facility] Benzodiazepine measurement, urine [facility] Bilirubin, total measurement [facility] Bilirubin, total measurement [facility] Bilirubin, total measurement [facility] Bilirubin.direct [Mass/volume] in Serum or Plasma [facility] BUN/Creatinine ratio [facility] BUN/Creatinine ratio [facility] BUN/Creatinine ratio [facility] BUN/Creatinine ratio [facility] Calcium [Mass/volume ] in Serum or Plasma [facility] Calcium [Mass/volume ] in Serum or Plasma [facility] Calcium [Mass/volume ] in Serum or Plasma [facility] Calcium [Mass/volume ] in Serum or Plasma [facility] Carbon dioxide, tota l [Moles/volume] in Central venous blood [facility] Carbon dioxide, tota l [Moles/volume] in Serum or Plasma [facility] Carbon dioxide, tota l [Moles/volume] in Serum or Plasma [facility] Carbon dioxide, tota l [Moles/volume] in Serum or Plasma [facility] Chloride [Moles/volu me] in Serum or Plasma [facility] Chloride [Moles/volu me] in Serum or Plasma [facility] Chloride [Moles/volu me] in Serum or Plasma [facility] Clostridioides diffi cile DNA [Presence] in Unspecified specimen by GENEVA with probe detection [facility] Clostridioides diffi cile toxin genes [Presence] in Stool by GENEVA with probe detection C. DIFFICILE PCR Lab Routine Chronic diarrhea Ordered: 08/09/2023 [facility] Comment on above: Ordered: 08/09/2023 Cocaine measurement, urine [facility] Cocaine measurement, urine [facility] Cocaine measurement, urine [facility] Cocaine measurement, urine [facility] Creatinine [Mass/vol ume] in Serum or Plasma [facility] Creatinine [Moles/volume] in Serum or Plasma [facility] Creatinine [Moles/volume] in Serum or Plasma [facility] Creatinine [Moles/volume] in Serum or Plasma [facility] End: 11-12-2024 CT Abdomen and Pelvis WO contrast CT ABD/PEL WO IVCON Radiology Routine Generalized abdominal pain Diarrhea of presumed infectious origin Weight loss Alcohol-induced chronic pancreatitis (HCC) 1 Occurrences starting 10/14/2023 until 11/12/2024 [facility] Work Phone: Comment on above: 1 Occurrences starting 10/14/2023 until 11/12/2024 End: 01-05-2025 CT Pancreas W contrast IV CT PANCREAS W IVCON Radiology Routine Diarrhea, unspecified type Acute pancreatitis, unspecified complication status, unspecified pancreatitis type 1 Occurrences starting 12/07/2023 until 01/05/2025 [facility] Work Phone: Comment on above: 1 Occurrences starting 12/07/2023 until 01/05/2025 CT Pancreas W contra st IV CT PANCREAS W IVCON Radiology Routine Diarrhea, unspecified type Acute pancreatitis, unspecified complication status, unspecified pancreatitis type 12/08/2023 11:00 AM EDT [facility] Work Phone: Cytology report of B francisco fluid Cyto stain [facility] End: 12-23-2024 EGD DIAGNOSTIC EGD DIAGNOSTIC Endoscopy Routine Anemia, unspecified type Weight loss Chronic pancreatitis, unspecified pancreatitis type (HCC) Epigastric pain 1 Occurrences starting 12/24/2023 until 12/23/2024 [facility] Comment on above: 1 Occurrences starting 12/24/2023 until 12/23/2024 Electrophoresis: [id number] [facility] Electrophoresis: eleuterio ma globulin [facility] Erythrocyte mean corpuscular volume determination [facility] Erythrocyte mean corpuscular volume determination [facility] Erythrocyte mean corpuscular volume determination [facility] Ethanol [Mass/volume ] in Serum or Plasma [facility] fentaNYL [Presence] in Urine by Screen method [facility] End: 12-23-2024 Flexible sigmoidoscopy study COLONOSCOPY DIAGNOSTIC Endoscopy Routine Anemia, unspecified type Weight loss 1 Occurrences starting 12/24/2023 until 12/23/2024 [facility] Work Phone: Comment on above: 1 Occurrences starting 12/24/2023 until 12/23/2024 Giardia lamblia+Cryptosporidium sp Ag [Presence] in Stool by Immunoassay CRYPTOSPORIDIUM AND GIARDIA ANTIGENS BY EIA Microbiology Routine Chronic diarrhea Ordered: 08/09/2023 [facility] Comment on above: Ordered: 08/09/2023 Gliadin peptide IgA Ab [Units/volume] in Serum [facility] Gliadin peptide IgG Ab [Units/volume] in Serum [facility] Globulin measurement [facility] Glucose [Mass/volume ] in Serum or Plasma [facility] Glucose [Mass/volume ] in Serum or Plasma [facility] Glucose [Mass/volume ] in Serum or Plasma [facility] Glucose [Mass/volume ] in Serum or Plasma [facility] Hematocrit [Volume Fraction] of Blood [facility] Hematocrit [Volume Fraction] of Blood [facility] Hematocrit [Volume Fraction] of Blood [facility] Hemoglobin [Mass/vol ume] in Blood [facility] Hemoglobin [Mass/vol ume] in Blood [facility] Hemoglobin [Mass/vol ume] in Blood [facility] Hemoglobin A1c/Hemoglobin.total in Blood [facility] Hemoglobin.gastroint gurwinder nal.lower [Presence] in Stool by Immunoassay IMMUNOCHEMICAL FECAL OCCULT BLOOD TEST Lab Routine Anemia, unspecified type Ordered: 08/11/2023 [facility] Work Phone: Comment on above: Ordered: 08/11/2023 Hemoglobin.gastroint gurwinder nal.lower [Presence] in Stool by Immunoassay IMMUNOCHEMICAL FECAL OCCULT BLOOD TEST Lab Routine Diarrhea of presumed infectious origin Ordered: 09/24/2023 [facility] Comment on above: Ordered: 09/24/2023 Hepatitis A virus Ig M Ab [Presence] in Serum [facility] Hepatitis B core antibody measurement, IgM type [facility] Hepatitis B surface antigen measurement [facility] Hepatitis C antibody measurement [facility] IgA [Mass/volume] in Serum or Plasma [facility] IgG [Mass/volume] in Serum or Plasma [facility] IgM [Mass/volume] in Serum or Plasma [facility] In-vitro immunologic test [facility] Laboratory data interpretation [facility] Lactic acid measurement [facility] Lactoferrin [Presenc e] in Stool by Immunoassay [facility] Leukocytes [#/volume ] in Blood [facility] Leukocytes [#/volume ] in Blood [facility] Leukocytes [#/volume ] in Blood [facility] Magnesium [Mass/volu me] in Serum or Plasma [facility] Magnesium measurement [facility] Mean corpuscular hemoglobin concentration determination [facility] Mean corpuscular hemoglobin concentration determination [facility] Mean corpuscular hemoglobin concentration determination [facility] Mean corpuscular hemoglobin determination [facility] Mean corpuscular hemoglobin determination [facility] Mean corpuscular hemoglobin determination [facility] Measurement of 3,4-methylenedioxymetham phetamine in urine [facility] Measurement of 3,4-methylenedioxymetham phetamine in urine [facility] Measurement of 3,4-methylenedioxymetham phetamine in urine [facility] Measurement of immunoglobulin A in serum specimen [facility] Measurement of renal function [facility] Measurement of renal function [facility] Measurement of renal function [facility] Measurement of renal function [facility] Methadone measuremen t, urine [facility] Methadone measuremen t, urine [facility] Methadone measuremen t, urine [facility] Methadone measuremen t, urine [facility] Mycobacterium tuberculosis tuberculin stimulated gamma interferon [Presence] in Blood [facility] Neutrophil count [facility] Neutrophil count [facility] Neutrophil count [facility] Neutrophil cytoplasm ic Ab.classic [Units/volume] in Serum [facility] Neutrophil percent differential count [facility] Neutrophil percent differential count [facility] Neutrophil percent differential count [facility] Nucleic acid assay [facility] Ova and parasites identified in Unspecified specimen by Light microscopy OVA + PARA MICROSCOPIC Microbiology Routine Chronic diarrhea Ordered: 08/09/2023 [facility] Comment on above: Ordered: 08/09/2023 Ova and parasites identified in Unspecified specimen by Light microscopy OVA + PARA MICROSCOPIC Microbiology Routine Diarrhea of presumed infectious origin Ordered: 09/24/2023 [facility] Work Phone: Comment on above: Ordered: 09/24/2023 Ova OR parasites identification [facility] P-ANCA measurement [facility] Patient Education [facility] Work Phone: Patient referral [facility] Work Phone: pH of Urine [place] pH of Urine [place] pH of Urine [place] Phencyclidine [Prese nce] in Urine [facility] Phencyclidine [Prese nce] in Urine [facility] Phencyclidine [Prese nce] in Urine [facility] Phencyclidine [Prese nce] in Urine [facility] Platelets [#/volume] in Blood [facility] Platelets [#/volume] in Blood [facility] Platelets [#/volume] in Blood [facility] Potassium [Moles/vol ume] in Serum or Plasma [facility] Potassium [Moles/vol ume] in Serum or Plasma [facility] Potassium [Moles/vol ume] in Serum or Plasma [facility] Potassium measurement [facility] Protein electrophore sis panel - Serum or Plasma [facility] Red blood cell count [facility] Red blood cell count [facility] Red blood cell count [facility] Red cell distributio n width determination [facility] Red cell distributio n width determination [facility] Red cell distributio n width determination [facility] Serum chloride measurement [facility] Serum inorganic phosphate measurement [facility] Sodium [Moles/volume ] in Serum or Plasma [facility] Sodium [Moles/volume ] in Serum or Plasma [facility] Sodium [Moles/volume ] in Serum or Plasma [facility] Sodium measurement [facility] Tissue Pathology bio psy report [facility] Work Phone: Comment on above: Release Upon Ordering for 1 Occurrences starting 04/05/2024, 1 completed Tissue transglutamin ase IgA Ab [Units/volume] in Serum [facility] Total protein measurement [facility] Total protein measurement [facility] Total protein measurement [facility] UA DIP B/O UA DIP B/O Lab R outine Dysuria Ordered: 08/09/2023 [facility] Work Phone: Comment on above: Ordered: 08/09/2023 Urea nitrogen [Mass/volume] in Serum or Plasma [facility] Urea nitrogen [Mass/volume] in Serum or Plasma [facility] Urea nitrogen [Mass/volume] in Serum or Plasma [facility] Urea nitrogen [Mass/volume] in Serum or Plasma [facility] Urine barbiturate measurement [facility] Urine barbiturate measurement [facility] Urine barbiturate measurement [facility] Urine cannabinoid measurement [facility] Urine cannabinoid measurement [facility] Urine cannabinoid measurement [facility] Urine cannabinoid measurement [facility] Urine immunofixation [facility] Urine opiate measurement [facility] Urine opiate measurement [facility] Urine opiate measurement [facility] Urine opiate measurement [facility] Immunizations Immunization Date Immunization Notes Care Provider Fa [facility] 11-06-2021 influenza, injectabl e, quadrivalent, preservative free [facility] 11-06-2021 influenza, seasonal, injectable [employer]EDGER-C Andreas Pathak CLAM DREDGER Work Phone: [facility] 11-06-2021 influenza virus vaccine, unspecified formulation Marianna Wagner APRN.[employer] Work Phone: [facility] 01-07-2021 influenza, injectabl e, quadrivalent, contains preservative; 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: [Fluarix PF Quadrivalent ] 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 - [employer] [facility] 01-07-2021 influenza, injectabl e, quadrivalent, preservative free CL[employer] DREDGER[employer]C Andreas Pathak CLAM DREDGER Work Phone: [facility] 02-09-2020 influenza, injectabl e, quadrivalent, preservative free [facility] 02-09-2020 influenza, seasonal, injectable [facility] 12-09-2018 influenza, injectabl e, quadrivalent, preservative free; 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: [Fluarix PF Quadrivalent ] 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 - [employer] [facility] 11-10-2017 influenza, injectabl e, quadrivalent, preservative free 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 - [employer] [facility] 11-08-2017 influenza virus vaccine, unspecified formulation DR SHILPI BURNS MD [facility] 11-08-2017 influenza, injectabl e, quadrivalent, preservative free CLAM DREDGER-C Andreas Pathak CLAM DREDGER Work Phone: [facility] 10-12-2017 influenza, injectabl e, quadrivalent, preservative free [facility] 10-12-2017 influenza, seasonal, injectable [facility] 12-09-2016 influenza virus vaccine, unspecified formulation DR SHILPI BURNS MD [facility] 12-09-2016 Seasonal, quadrivalent, recombinant, injectable influenza vaccine, preservative free CLAM DREDGER-C Andreas Pathak CLAM DREDGER Work Phone: [facility] 11-29-2016 influenza virus vaccine, unspecified formulation DR SHILPI BURNS MD [facility] 11-29-2016 influenza, injectabl e, quadrivalent, preservative free [facility] 11-29-2016 influenza, seasonal, injectable [facility] 11-29-2016 Seasonal, quadrivalent, recombinant, injectable influenza vaccine, preservative free CLAM DREDGER-C Andreas Pathak CLAM DREDGER Work Phone: [facility] 12-10-2015 influenza virus vaccine, unspecified formulation DR SHILPI BURNS MD [facility] 12-10-2015 Seasonal, quadrivalent, recombinant, injectable influenza vaccine, preservative free CLAM DREDGER-C Andreas Pathak CLAM DREDGER Work Phone: [facility] 10-23-2014 influenza virus vaccine, unspecified formulation DR SHILPI BURNS MD [facility] 10-23-2014 Seasonal, quadrivalent, recombinant, injectable influenza vaccine, preservative free CLAM DREDGER-C Andreas Pathak CLAM DREDGER Work Phone: [facility] Payers Date Payer Category Payer Self-pay [id number] 2023 Medicaid [id number] 2022 Unknown [id number] 2022 Medicaid [id number]. [id number] [id number] 2022 Unknown [id number] 2022 Medicaid [id number] 2018 Unknown MULTIPLAN MULTIP SAMY xxxxxxxxx 2018-Present xxxxxxxxx [id number] [id number] 2016 Unknown [id number] 1962 Unknown [id number] 2.16.840.1.311155.3.579.2.627 1962 Unknown [id number] 2.16.840.1.235967.3.579.2.62 1962 Unknown [id number] 2.16.840.1.474034.3.579.2.62 1962 Unknown [id number] 2.16.840.1.599212.3.579.2.62 1962 Unknown [id number] 2.16.840.1.793457.3.579.2.62 1962 Unknown [id number] 2.16.840.1.863272.3.579.2.62 1962 Unknown [id number] 2.16.840.1.590439.3.579.2.62 1962 Unknown [id number] 2.16.840.1.954548.3.579.2. 1962 Unknown [id number] 2.16.840.1.908814.3.579.2.62 1962 Unknown [id number] 2.16.840.1.156696.3.579.2. 1962 Unknown [id number] 2.16.840.1.113450.3.579.2. 1962 Unknown [id number] 2.16.840.1.057345.3.579.2.62 1962 Unknown [id number] 2.16.840.1.630782.3.579.2.62 1962 Unknown [id number] 2.16.840.1.267843.3.579.2.62 1962 Unknown [id number] 2.16.840.1.750925.3.579.2.278 1962 Unknown [id number] 2.16.840.1.504614.3.579.2.278 1962 Unknown [id number] 2.16.840.1.587004.3.579.2.278 1962 Unknown [id number] 2.16.840.1.383019.3.579.2.278 1962 Unknown [id number] 2.16.840.1.178481.3.579.2.278 Unknown [id number] 2.16.840.1.379222.3.579.2.462 Unknown [id number] 2.16.840.1.298324.3.579.2.462 Unknown [id number] 2.16.840.1.115586.3.579.2.462 Unknown [id number] 2.16840.1.620430.3.579.2.462 Unknown [id number] 2.16.840.1.274518.3.579.2.462 Unknown [id number] 2.16840.1.464290.3.579.2.462 Unknown [id number] 2.16.840.1.424918.3.579.2.462 Unknown [id number] 2.16.840.1.709126.3.579.2.462 Unknown [id number] 2.16.840.1.842362.3.579.2.462 Unknown [id number] 2.16.840.1.759761.3.579.2.462 Unknown [id number] 2.16.840.1.803563.3.579.2.462 Unknown [id number] 2.16.840.1.409144.3.579.2.462 Unknown [id number] 2.16.840.1.585136.3.579.2.462 Unknown [id number] 2.16.840.1.085483.3.579.2.462 Unknown [id number] 2.16.840.1.393857.3.579.2.462 Unknown [id number] 2.16.840.1.985269.3.579.2.462 Unknown [id number] 2.16.840.1.861834.3.579.2.462 Unknown [id number] 2.16.840.1.308472.3.579.2.462 Unknown [id number] 2.16.840.1.367239.3.579.2.462 Unknown [id number] 2.16840.1.985657.3.579.2.462 Unknown [id number] 2.16.840.1.384375.3.579.2.462 Unknown [id number] 2.840.1.483331.3.579.2.462 Unknown [id number] 2.840.1.019708.3.579.2.462 Unknown [id number] 2.840.1.740994.3.579.2.462 Unknown [id number] 2.840.1.314826.3.579.2.462 Unknown [id number] 2.840.1.481984.3.579.2.462 Unknown [id number] 2.840.1.865996.3.579.2.462 Unknown [id number] 2.840.1.110953.3.579.2.462 Unknown [id number] 2.840.1.753643.3.579.2.462 Unknown [id number] 2.840.1.046214.3.579.2.462 Unknown [id number] 2.840.1.358683.3.579.2.462 Unknown [id number] 2.840.1.722604.3.579.2.462 Unknown [id number] 2.840.1.943755.3.579.2.462 Unknown [id number] 2.840.1.660749.3.579.2.462 Unknown [id number] 2.840.1.534351.3.579.2.462 Unknown [id number] 2.16.840.1.840551.3.579.2.462 Unknown [id number] 2.16.840.1.354808.3.579.2.462 Social History Date Type Detail Facility Tobacco smoking stat us NHIS Unknown if ever smoked [facility] Start: 1960 Sex Assigned At Not on file [facility] Start: 09-06-2018 End: 03-29-2023 Heavy tobacco smoker (finding) [facility] Comment on above: No smoke exposure Start: 1960 Sex Assigned At Male [facility] Start: 05-04-2021 End: 05-11-2023 Tobacco smoking status NHIS Unknown if ever smoked [facility] Start: 09-08-2019 Heavy [facility] Start: 09-08-2019 None [facility] Start: 06-07-2018 Alone [facility] Start: 05-11-2020 Cigarettes [facility] Start: 08-09-2023 End: 11-15-2023 Tobacco smoking status NHIS Smokes tobacco daily [facility] Start: 02-08-2023 End: 03-09-2016 History of tobacco use Cigarette Smoker [facility] Start: 08-09-2023 End: 04-12-2024 Cigarettes smoked current (pack per day) - Reported 0.5 [facility] Start: 08-09-2023 End: 11-15-2023 Tobacco use and exposure Smokeless tobacco non-user [facility] Start: 08-09-2023 End: 04-12-2024 Alcohol intake Current drinker of alcohol (finding) [facility] Start: 08-09-2023 End: 04-12-2024 Tobacco use panel [facility] Adult Depression Screening Assessment 0 [facility] Start: 10-14-2023 Alcohol Comment occ. [facility] Start: 11-15-2023 Tobacco Comment Pt smoked 1 pa ck daily for x 40 years, pt has cut back to 1 pack per week x 1 year [facility] Sexual Orientation Elias vail [facility] Start: 11-24-2018 Sex Male (finding) [facility] Start: 08-28-2024 Tobacco smoking stat us NHIS Current Light tobacco smoker [facility] Medical Equipment Procedure Code Equipment Code Equipment Original Text Equipment Identifier Dates Blood Glucose Te st Strips Start: 04-04-[address]ps Start: 04-04-[address] Strips Start: 05-02-2021 Lancets Start: 05-02-2021 See Instructions , One Touch Ultra Blue Testi Strips 1 bottle of 100 Use 1 strip to test BS TID, # 100 EA, 11 Refill(s), Pharmacy: [facility], 180.3, cm, 02/14/21 8:43:00 EST, Height, 73.3, kg, 02/14/21 8:43:00 EST, Dosing Weight Start: 04-04-2021 See Instructions , 1 bottle of 100- PATIENT TESTS 2-3 TIMES PER DAY, # 1 EA, 11 Refill(s), Pharmacy: [facility], 176.5, cm, 05/02/21 11:34:00 EDT, Height, 73.2, kg, 05/02/21 13:04:00 EDT, Dosing Weight Start: 05-02-2021 See Instructions , qs 1 month supply-PATIENT TESTS 2-3 TIMES PER DAY, # 1 EA, 11 Refill(s), Pharmacy: [facility], 176.5, cm, 05/02/21 11:34:00 EDT, Height, 73.2, kg, 05/02/21 13:04:00 EDT, Dosing Weight Start: 05-02-2021 ONE TOUCH ULTRA BLUE TEST STRP, See Instructions, USE 1 STRIP THREE TIMES A DAY TO TEST BLOOD SUGAR, # 100 strip, 11 Refill(s), Pharmacy: [facility] [id number], 180.3, cm, 04/13/19 10:19:00 EST, Height, 81.7, [...] TID, # 100 EA, 11 Refill(s), Pharmacy: [facility], 180.3, cm, 02/14/21 8:43:00 EST, Height, 73.3, kg, 02/14/21 8:43:00 EST, Dosing Weight Start: 04-04-2021 See Instructions , 1 bottle of 100- PATIENT TESTS 2-3 TIMES PER DAY, # 1 EA, 0 Refill(s), Pharmacy: [facility], 176.5, cm, 12/23/21 10:15:00 EST, Height, 68.2, kg, 12/23/21 10:15:00 EST, Dosing Weight Start: 04-09-2022 See Instructions , qs 1 month supply-PATIENT TESTS 2-3 TIMES PER DAY, # 1 EA, 0 Refill(s), Pharmacy: [facility], 176.5, cm, 12/23/21 10:15:00 EST, Height, 68.2, kg, 12/23/21 10:15:00 EST, Dosing Weight Start: 04-09-2022 ONE TOUCH ULTRA BLUE TEST STRP, See Instructions, USE 1 STRIP THREE TIMES A DAY TO TEST BLOOD SUGAR, # 100 strip, 11 Refill(s), Pharmacy: [facility] [id number], 180.3, cm, 04/13/19 10:19:00 EST, Height, 81.7, [...] TID, # 100 EA, 11 Refill(s), Pharmacy: [facility], 180.3, cm, 02/14/21 8:43:00 EST, Height, 73.3, kg, 02/14/21 8:43:00 EST, Dosing Weight Start: 04-04-2021 See Instructions , 1 bottle of 100- PATIENT TESTS 2-3 TIMES PER DAY, # 1 EA, 0 Refill(s), Pharmacy: [facility], 176.5, cm, 12/23/21 10:15:00 EST, Height, 68.2, kg, 12/23/21 10:15:00 EST, Dosing Weight Start: 04-09-2022 See Instructions , qs 1 month supply-PATIENT TESTS 2-3 TIMES PER DAY, # 1 EA, 0 Refill(s), Pharmacy: [facility], 176.5, cm, 12/23/21 10:15:00 EST, Height, 68.2, kg, 12/23/21 10:15:00 EST, Dosing Weight Start: 04-09-2022 ONE TOUCH ULTRA BLUE TEST STRP, See Instructions, USE 1 STRIP THREE TIMES A DAY TO TEST BLOOD SUGAR, # 100 strip, 11 Refill(s), Pharmacy: [facility] [id number], 180.3, cm, 04/13/19 10:19:00 EST, Height, 81.7, [...] TID, # 100 EA, 11 Refill(s), Pharmacy: [facility], 180.3, cm, 02/14/21 8:43:00 EST, Height, 73.3, kg, 02/14/21 8:43:00 EST, Dosing Weight Start: 04-04-2021 See Instructions , 1 bottle of 100- PATIENT TESTS 2-3 TIMES PER DAY, # 1 EA, 0 Refill(s), Pharmacy: [facility], 176.5, cm, 12/23/21 10:15:00 EST, Height, 68.2, kg, 12/23/21 10:15:00 EST, Dosing Weight Start: 04-09-2022 See Instructions , qs 1 month supply-PATIENT TESTS 2-3 TIMES PER DAY, # 1 EA, 0 Refill(s), Pharmacy: [facility], 176.5, cm, 12/23/21 10:15:00 EST, Height, 68.2, kg, 12/23/21 10:15:00 EST, Dosing Weight Start: 04-09-2022 ONE TOUCH ULTRA BLUE TEST STRP, See Instructions, USE 1 STRIP THREE TIMES A DAY TO TEST BLOOD SUGAR, # 100 strip, 11 Refill(s), Pharmacy: [facility] [id number], 180.3, cm, 04/13/19 10:19:00 EST, Height, 81.7, [...] TID, # 100 EA, 11 Refill(s), Pharmacy: [facility], 180.3, cm, 02/14/21 8:43:00 EST, Height, 73.3, kg, 02/14/21 8:43:00 EST, Dosing Weight Start: 04-04-2021 See Instructions , 1 bottle of 100- PATIENT TESTS 2-3 TIMES PER DAY, # 1 EA, 0 Refill(s), Pharmacy: [facility], 176.5, cm, 12/23/21 10:15:00 EST, Height, 68.2, kg, 12/23/21 10:15:00 EST, Dosing Weight Start: 04-09-2022 See Instructions , qs 1 month supply-PATIENT TESTS 2-3 TIMES PER DAY, # 1 EA, 0 Refill(s), Pharmacy: [facility], 176.5, cm, 12/23/21 10:15:00 EST, Height, 68.2, kg, 12/23/21 10:15:00 EST, Dosing Weight Start: 04-09-2022 ONE TOUCH ULTRA BLUE TEST STRP, See Instructions, USE 1 STRIP THREE TIMES A DAY TO TEST BLOOD SUGAR, # 100 strip, 11 Refill(s), Pharmacy: [facility] [id number], 180.3, cm, 04/13/19 10:19:00 EST, Height, 81.7, [...] TID, # 100 EA, 11 Refill(s), Pharmacy: [facility], 180.3, cm, 02/14/21 8:43:00 EST, Height, 73.3, kg, 02/14/21 8:43:00 EST, Dosing Weight Start: 04-04-2021 See Instructions , 1 bottle of 100- PATIENT TESTS 2-3 TIMES PER DAY, # 1 EA, 0 Refill(s), Pharmacy: [facility], 176.5, cm, 12/23/21 10:15:00 EST, Height, 68.2, kg, 12/23/21 10:15:00 EST, Dosing Weight Start: 04-09-2022 See Instructions , qs 1 month supply-PATIENT TESTS 2-3 TIMES PER DAY, # 1 EA, 0 Refill(s), Pharmacy: [facility], 176.5, cm, 12/23/21 10:15:00 EST, Height, 68.2, kg, 12/23/21 10:15:00 EST, Dosing Weight Start: 04-09-2022 ONE TOUCH ULTRA BLUE TEST STRP, See Instructions, USE 1 STRIP THREE TIMES A DAY TO TEST BLOOD SUGAR, # 100 strip, 11 Refill(s), Pharmacy: [facility] [id number], 180.3, cm, 04/13/19 10:19:00 EST, Height, 81.7, [...] TID, # 100 EA, 11 Refill(s), Pharmacy: [facility], 180.3, cm, 02/14/21 8:43:00 EST, Height, 73.3, kg, 02/14/21 8:43:00 EST, Dosing Weight Start: 04-04-2021 See Instructions , 1 bottle of 100- PATIENT TESTS 2-3 TIMES PER DAY, # 1 EA, 0 Refill(s), Pharmacy: [facility], 176.5, cm, 12/23/21 10:15:00 EST, Height, 68.2, kg, 12/23/21 10:15:00 EST, Dosing Weight Start: 04-09-2022 See Instructions , qs 1 month supply-PATIENT TESTS 2-3 TIMES PER DAY, # 1 EA, 0 Refill(s), Pharmacy: [facility], 176.5, cm, 12/23/21 10:15:00 EST, Height, 68.2, kg, 12/23/21 10:15:00 EST, Dosing Weight Start: 03-02-2023 See Instructions , One Touch Ultra Blue Testi Strips 1 bottle of 100 Use 1 strip to test BS TID, # 100 EA, 11 Refill(s), Pharmacy: [facility], 180.3, cm, 02/14/21 8:43:00 EST, Height, 73.3, kg, 02/14/21 8:43:00 EST, Dosing Weight Start: 04-04-2021 See Instructions , 1 bottle of 100- PATIENT TESTS 2-3 TIMES PER DAY, # 1 EA, 0 Refill(s), Pharmacy: [facility], 176.5, cm, 12/23/21 10:15:00 EST, Height, 68.2, kg, 12/23/21 10:15:00 EST, Dosing Weight Start: 04-09-2022 See Instructions , qs 1 month supply-PATIENT TESTS 2-3 TIMES PER DAY, # 1 EA, 0 Refill(s), Pharmacy: [facility], 176.5, cm, 12/23/21 10:15:00 EST, Height, 68.2, kg, 12/23/21 10:15:00 EST, Dosing Weight Start: 04-09-2022 Graft Gelweave 2 8mm Straight Gelatin Polyester Woven 30cm Cardiovascular - [id number] Start: 03-19-2016 Graft Gelweave V alsalva Vascutek 36mm 28mm Gelatin Woven 15cm 28mm - [id number] Start: 03-19-2016 Gulliver Thk1.65mm P tfe 4x.5in Cardiovascular Sterile - [id number] Start: 03-19-2016 Graft Gelweave 8 mm Straight Gelatin Polyester Woven 30cm Cardiovascular - [id number] Start: 03-19-2016 Patch Thk.2-.4mm Bovine Pericardium Encap 14x9cm Cardiovascular Soft - [id number] Start: 03-19-2016 Valve Aort 23mm Crp-Ed Thfx - [id number] Start: 03-19-2016 [id number] Start: 03-28-2016 End: 11-26-2023 See Instructions , One Touch Ultra Blue Testi Strips 1 bottle of 100 Use 1 strip to test BS TID, # 100 EA, 11 Refill(s), Pharmacy: [facility], 180.3, cm, 02/14/21 8:43:00 EST, Height, 73.3, kg, 02/14/21 8:43:00 EST, Dosing Weight Start: 04-04-2021 See Instructions , 1 bottle of 100- PATIENT TESTS 2-3 TIMES PER DAY, # 1 EA, 0 Refill(s), Pharmacy: [facility], 176.5, cm, 12/23/21 10:15:00 EST, Height, 68.2, kg, 12/23/21 10:15:00 EST, Dosing Weight Start: 04-09-2022 See Instructions , qs 1 month supply-PATIENT TESTS 2-3 TIMES PER DAY, # 1 EA, 0 Refill(s), Pharmacy: [facility], 176.5, cm, 12/23/21 10:15:00 EST, Height, 68.2, kg, 12/23/21 10:15:00 EST, Dosing Weight Start: 04-09-2022 1 Each three wilbur es a day. [id number] Start: 11-26-2023 End: 02-21-2024 USE ONE 3 TIMES DAILY [id number] Sta rt: 02-21-2024 See Instructions , One Touch Ultra Blue Testi Strips 1 bottle of 100 Use 1 strip to test BS TID, # 100 EA, 11 Refill(s), Pharmacy: [facility], 180.3, cm, 02/14/21 8:43:00 EST, Height, 73.3, kg, 02/14/21 8:43:00 EST, Dosing Weight Start: 04-04-2021 See Instructions , 1 bottle of 100- PATIENT TESTS 2-3 TIMES PER DAY, # 1 EA, 0 Refill(s), Pharmacy: [facility], 176.5, cm, 12/23/21 10:15:00 EST, Height, 68.2, kg, 12/23/21 10:15:00 EST, Dosing Weight Start: 04-09-2022 See Instructions , qs 1 month supply-PATIENT TESTS 2-3 TIMES PER DAY, # 1 EA, 0 Refill(s), [facility], 176.5, cm, 12/23/21 10:15:00 EST, Height, 68.2, kg, 12/23/21 10:15:00 EST, Dosing Weight Start: 04-09-2022 USE 3 TIMES DAILY [id number] Start: 05-31-2024 Goals Date Patient Goal Desired Activity /State Functional Status Date Assessment Result Facility 08-03-2024 Functional status Ambulates [facility] Work Phone: 07-14-2024 Functional status Ambulates;Up ad haleigh [facility] Work Phone: 07-06-2024 Functional status Ambulates [facility] Work Phone: 06-28-2024 Functional status Ambulates;Bath room Privilege [facility] Work Phone: 10-30-2023 Functional Status Independent [facility] 10-30-2023 Functional Status Standard Safet y ID band on, Call device within reach, Bed in low position, Wheels locked, Upper/Half-Length side-rails up, personal items within reach, Bedside Cart Locked, Visitor at bedside [facility] 05-20-2023 Functional status Ambulates [facility] Work Phone: 04-27-2023 Functional status Chair [facility] Work Phone: 03-19-2023 Functional Status Room check performed [facility] 03-19-2023 Functional Status 100 [facility] 03-19-2023 Functional Status [facility] 03-19-2023 Functional Status 3am-7am [facility] 03-19-2023 Functional Status [facility] 03-19-2023 Functional Status [facility] 03-18-2023 Functional Status [facility] 03-18-2023 Functional Status Dinner Percent 75 [facility] 03-18-2023 Functional Status Activity Yu tance One assist [facility] 03-18-2023 Functional Status [facility] 03-18-2023 Functional Status Morning Snack Percent 1 00 [facility] 03-18-2023 Functional Status 4 [facility] 03-18-2023 Functional Status [facility] 03-18-2023 Functional Status [facility] 03-18-2023 Functional Status [facility] 03-18-2023 Functional Status [facility] 03-17-2023 Functional Status bilateral knee high removed/off [facility] 03-17-2023 Functional Status [facility] 03-17-2023 [facility] Functional Status [facility] 03-16-2023 Functional Status [facility] 03-16-2023 Functional Status [facility] 03-16-2023 Functional Status [facility] 03-16-2023 Functional Status Mobile home [facility] 03-15-2023 Functional Status [facility] 10-05-2022 Functional Status ID band on, Call device within reach, Bed in low position, Wheels locked, Upper/Half-Length side-rails up [facility] 05-13-2022 Functional Status Independent [facility] 03-24-2022 Functional status Ambulates [facility] Work Phone: 02-04-2022 Functional status Ambulates [facility] Work Phone: 11-14-2021 Functional status Up ad haleigh [facility] Work Phone: 11-08-2021 Functional status Ambulates [facility] Work Phone: 11-08-2021 Functional status None [facility] Work Phone: 06-01-2021 Functional status Up ad haleigh [facility] Work Phone: 05-05-2021 Functional status Chair [facility] Work Phone: 03-28-2016 Are you deaf, or do you have serious difficulty hearing No 03/28/2016 4:20 PM Ynes Willis (Rn)(Hist), RN No [facility] 03-28-2016 Are you blind, or do you have serious difficulty seeing, even when wearing glasses No 03/28/2016 4:20 PM Ynes Willis (Rn)(Hist), RN No [facility] 03-28-2016 Do you have serious difficulty walking or climbing stairs No 03/28/2016 4:20 PM Ynes Willis (Rn)(Hist), RN No [facility] 03-28-2016 Do you have difficul ty dressing or bathing No 03/28/2016 4:20 PM Ynes WillisRn)(Hist), RN No [facility] 03-28-2016 Because of a physica l, mental, or emotional condition, do you have difficulty doing errands alone such as visiting a physician's office or shopping No 03/28/2016 4:20 PM Ynes WillisRn)(Hist), RN No [facility] Mental Status Date Assessment Result Facility 08-03-2024 Cognitive function Voice/Name [facility] Work Phone: 07-14-2024 Cognitive function Voice/Name [facility] Work Phone: 07-06-2024 Cognitive function Voice/Name [facility] Work Phone: 06-28-2024 Cognitive function Voice/Name [facility] Work Phone: 10-30-2023 Mental Status Orientation Oriented x 4 [facility] 10-30-2023 Mental Status [facility] 05-20-2023 Cognitive function Voice/Name [facility] Work Phone: 04-27-2023 Cognitive function Voice/Name [facility] Work Phone: 03-19-2023 Mental Status Oriented x 4 [facility] 03-19-2023 Mental Status [facility] 03-18-2023 Mental Status [facility] 03-18-2023 Mental Status [facility] 10-05-2022 Mental Status Orientation Oriented x 4 [facility] 07-20-2022 Cognitive function Level Of Cons ciousness Awake;Alert;Follows Commands [facility] Work Phone: 05-13-2022 Mental Status Orientation Oriented x 4 [facility] 05-13-2022 Mental Status [facility] 03-24-2022 Cognitive function Appropriate [facility] Work Phone: 02-04-2022 Cognitive function Voice/Name [facility] Work Phone: 02-01-2022 Cognitive function Level Of Cons ciousness Awake;Alert;Appropriate;Fol lows Commands [facility] Work Phone: 11-13-2021 Cognitive function Voice/Name [facility] Work Phone: 11-08-2021 Cognitive function Voice/Name [facility] Work Phone: 09-30-2021 Cognitive function Level Of Cons ciousness Awake;Alert;Appropriate;Fol lows Commands [facility] Work Phone: 06-01-2021 Cognitive function Voice/Name [facility] Work Phone: 05-04-2021 Cognitive function Voice/Name [facility] Work Phone: 05-04-2021 Cognitive function Level Of Cons ciousness Awake;Alert;Appropriate [facility] Work Phone: 03-28-2016 Because of a physica l, mental, or emotional condition, do you have serious difficulty concentrating, remembering, or making decisions No 03/28/2016 4:20 PM Ynes Willis (Rn)(Hist), RN No [facility] Clinical Notes 05-02-2021 to 08-28-2024 Note Date & Type Note Facility 08-28-2024 Radiology Diagnostic study note [facility] 08-28-2024 Discharge summary Note Date/Time August 28, 2024 11:44pm [facility] Medical Records Department [address] [place] [address] Emergency Department Summary 08/28/24 MR#: [id number] Acct: [id number] Name: ANALILIA MELENDREZ Rep #:[id number] : 1960 64 From: Vinh Lomeli MD PCP: Sigrid Call DO Status:REG ER Location: ED HPI History of Present Illness Chief Complaint: Shortness of Breath Informant: patient Onset/Context/Timing Onset: Days Context: gradual Timing: Intermittent Current Severity: Mild Maximum Severity: Mild Worsened by: Nothing Relieved by: Nothing Associated Symptoms Chest Pain: Positive for None Narrative Narrative: 64-year-old male history of liver cirrhosis with ascites has been drained 4 times once a month for the last 4 months has not been yet this month. 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 He is on no blood thinners. States he just felt short of breath the last several days. With leg swelling. Denies anychest pain. No cough or fever. PE Risk Factors: Negative for Cancer, OCP + Smoking + > 35, Prior DVT or PE, Recent immobilization, Recent surgery or Recent travel Prior similar symptoms: Yes Recent Illness/Hospitalization: No PFSH PFSH Medical History Malnutrition Pancytopenia Medically noncompliant Thrombocytopenia [...] mg PO DAILY DIABETE S 09/30/21 07/31/24 His tory tablet (Farxiga) multivitamin 1 tab PO DAILY [...] reflux #60 tabs 06/27/23 07/31/24 Rx release fgplvl-nxmhfwqf-nkajqbm 1 cap PO TIDCM #90 caps 06/0907/31/24 Rx 24,000-76,000-120,000 unit capsule,delayed rel (Creon) ferrous sulfate 325 mg (65 mg 325 mg PO DAILY suppleme nt 06/30/24 07/31/24 History iron) tablet (FeroSul) metoprolol succinate 25 mg 12.5 mg (1/2 x 25 mg) PO DA RASHEED 07/06/24 07/31/24 Rx tablet,extended release 24 hr blood pressure 30 days # 15 tabs spironolactone 25 mg tablet 25 mg PO DAILY diuretic 30 days 07/06/24 07/31/24 Rx #30 tabs L.acidophil,salivari-Bifido 1 cap PO BID Probiotic 07/31/24 History bifidum-Strep thermoph 175 mg capsule furosemide 20 mg tablet 40 mg (2 x 20 mg) PO DAILY 3 0 days 08/03/24 Unknown Rx #60 tabs sacubitril 24 mg-valsartan 26 mg 1 tab PO BID #60 tabs 08/03/24 Unknown Rx tablet (Entresto) Allergy/AdvReac Type Severity Reaction Status Date / Time No Known Allergies Allergy Verified 08/01/24 22:20 Family History Father CAD (coronary artery disease) Mother Dementia Surgical History History of aortic aneurysm repair (~2017) H/O cardiac catheterization History of cataract surgery History of hernia repair History of aortic valve replacement with bioprosthetic valve (~2017) H/O aortic valve replacement Social History household members: family housing: house Smoking Status: Light Smoker (<10/day) alcohol intake: current alcohol intake frequency: 0-2 drinks per day details: Reports currently ~ 2 tall boys daily. substance use type: former substance user caffeine: Yes Type: coffee Number of servings: 3 ROS ROS ED ROS Narrative Shortness of breath. Denies recent illness. No chest pain. Constitutional Constitutional ED: Denies chills or fever(s) Eyes Eyes: Denies blurry vision ENT ENT ED: Denies ear pain Cardiovascular Cardiovascular: Denies chest pain Respiratory/Chest Respiratory/Chest: Reports dyspnea; Denies cough Gastrointestinal Gastrointestinal: Denies abdominal pain Genitourinary Genitourinary ED: Denies dysuria or hematuria Musculoskeletal Musculoskeletal: Denies arthralgias Integumentary Denies abscess Neurologic Neurologic: Denies headache(s) Psychiatric Psychiatric: Denies anxiety or depression Endocrine Endocrinology: Denies cold intolerance Hematologic/Lymphatic Hematologic/Lymphatic: Denies easy bleeding, easy bruising or lymphadenopathy Allergic/Immunologic Allergic/Immunologic ED: Denies mouth swelling, tongue swelling or urticaria EXAM Physical Exam Narrative Exam Narrative: 64-year-old male sitting upright in bed. Vital signs stable he is tachycardic initially 120 in triage prior 110 or less currently. No acute distress. Pulse ox 95% on room air no signs hypoxia. H EENT exam pupils round react light. Moist mucous membranes. Neck nontender JVD. Lungs clear to auscultation bilaterally. Heart tachycardic 110 no murmur. He does have a valve click. Abdomen soft nondistended normal bowel sounds without peritoneal signs. He is very minimal ascitic fluid currently. He is not distended. Is not hard. He isnot tender. Moving all 4 extremities. 1+ pitting edema both lower extremities equal symmetrical. Calves nontender no cords. Neurologically is awake alert. Answering questions following commands. Const Vital Signs: 08/28/24 17:46 08/28/24 17:51 08/28/24 18:42 Temperature 97.9 F Temperature Source Oral Pulse Rate 120 H Respiratory Rate 27 H Respiratory Effort Short of Breath Respiratory Depth Shallow Respiratory Pattern Tachypnea Blood Pressure 137/101 H Blood Pressure Mean 113 Pulse Ox 95 94 Oxygen Delivery Method Room Air Room Air Room Air Oxygen Flow Rate (L/min) Fraction of Inspired Oxygen (FIO2) 08/28/24 19:49 08/28/24 19:49 08/28/24 21:00 Temperature Temperature Source Pulse Rate 105 H 133 H Respiratory Rate 24 H 30 H Respiratory Effort Respiratory Depth Respiratory Pattern Blood Pressure 139/123 H Blood Pressure Mean 128 Pulse Ox 89 96 98 Oxygen Delivery Method Room Air Nasal Cannula Oxygen Flow Rate (L/min) 2 Fraction of Inspired Oxygen (FIO2) 08/28/24 21:27 08/28/24 23:00 Temperature Temperature Source Pulse Rate 115 H Respiratory Rate 18 Respiratory Effort Respiratory Depth Respiratory Pattern Blood Pressure Blood Pressure Mean Pulse Ox 92 96 Oxygen Delivery Method Venturi Mask Oxygen Flow Rate (L/min) 8 Fraction of Inspired Oxygen (FIO2) 40 Positive well nourished and well developed; Negative for cachectic, contracturesor unkempt General Appearance ED: well developed and NAD; Negative for unkempt, cachectic or contractures Nutritional Appearance: Negative for cachectic HEENT Reports moist mucous membranes atraumatic; Negative for trauma or tenderness Eyes PERRL and EOMs intact bilaterally Neck no lymphadenopathy, supple, no meningeal signs and no JVD Resp normal respiratory effort and clear to auscultation bilaterally Cardio regular rhythm, S1 normal heart sound, S2 normal heart sound and no murmurs; Negative for regular rate Cardio Narrative: Valve click. Tachycardia about 110. He has a bovine valve. Rate: tachycardic GI non-tender, non-distended and no masses GI Narrative: Minimal abdominal ascites. Nontender. Auscultation: normoactive bowel sounds Palpation: soft; Negative for tender or guarding Back/Spine no CVA tenderness and normal to inspection Extremity Negative for normal to inspection Extremity Narrative: 1+ pitting edema bilaterally. General Extremety ED: Yes edema; Negative for tenderness General Extremity: edema Neuro oriented x3 and CN's II-XII intact bilaterally Sensorium / Orientation: alert, oriented to person, oriented to place and oriented to time Motor Exam: strength 5/5 throughout Psych mental status grossly normal Appearance: Negative for unkempt Thought Process: normal thought process Skin no wounds and skin turgor normal Lesions: no lesions Rashes: no rashes MDM MDM MDM Narrative Medical decision making narrative: 64-year-old cirrhotic male complaining of shortness of breath. Undergo a cardiac workup with a D-dimer due to recent hospitalization. Clinically I do not think this is can be a PE or cardiac in nature could be anemic he could havea pleural effusion from his ascites. His abdomen is not significantly distendedwith ascitic fluid I do not think it is from that. Repeat exam patient is resting comfortably currently. He is on oxygen. Patientdoes not have oxygen at home. I believe is secondary to the pleural effusions. However I spoke to the hospitalist will be a PCU admit. Patient will be given some IV Lasix. History & Record Review Discussion w/independent historian: Patient Additional record(s) reviewed:: Prior inpatient record, Prior outpatient record,Prior ED visit and Prior labs Lab Data Attestation: I reviewed the patient's lab results. Lab results narrative: CBC shows a white count of 4. H&H 10.1 and 31.6. History of chronic anemia. Platelets 181. Electrolytes show potassium of 3.1. Gap 13. Normal BUN of 8 creatinine 1.1. Glucose 369 he is diabetic. Troponin is elevated 67. 2-hour troponin is 57. D-dimer is elevated at 1.52. Patient recently had a CTA that was negative for PE. UA negative. Chest x-ray bilateral pleural effusions. Chronic changes. Labs: Laboratory Results - last 24 hr 08/28/24 08/28/24 08/28/24 17:09 17:54 19:56 WBC 4.8 RBC 3.00 L Hgb 10.1 L Hct 31.6 L MCV 105.3 H MCH 33.7 H MCHC 32.0 RDW Std Deviation 53.1 H RDW Coeff of Kalpana 13.8 Plt Count 181 MPV 11.9 Immature Gran % (Auto) 0.200 Neut % (Auto) 68.3 Lymph % (Auto) 21.3 Mcdonough % (Auto) 7.6 Eos % (Auto) 1.4 Baso % (Auto) 1.2 H Absolute Neuts (auto) 3.3 Absolute Lymphs (auto) 1.03 Nucleated RBC % 0 D-Dimer Quant (PE/DVT) 1.52 H* Sodium 137 Potassium 3.1 L Chloride 102 Carbon Dioxide 21.9 Anion Gap 13 BUN 8 Creatinine 1.10 Estim Creat Clear Calc 65.39 Est GFR (MDRD) Non-Af 76 BUN/Creatinine Ratio 7.3 L Glucose 369 H Calcium 8.0 Troponin T High Sens 67 H* D Troponin T Hi Sens 2 Hr Urine Color Straw Urine Clarity Clear Urine pH 7.0 Ur Specific [place] 1.010 Urine Protein Negative Urine Glucose (UA) 1000 H Urine Ketones Negative Urine Occult Blood Negative Urine Nitrite Negative Urine Bilirubin Negative Urine Urobilinogen Normal Ur Leukocyte Esterase Negative Urine RBC 0-5 SEEN Urine WBC 0-5 SEEN Ur Squamous Epith Cells 0 SEEN Urine Bacteria 0 SEEN Urine Mucus 0 SEEN 08/28/24 22:32 WBC RBC Hgb Hct MCV MCH MCHC RDW Std Deviation RDW Coeff of Kalpana Plt Count MPV Immature Gran % (Auto) Neut % (Auto) Lymph % (Auto) Mcdonough % (Auto) Eos % (Auto) Baso % (Auto) Absolute Neuts (auto) Absolute Lymphs (auto) Nucleated RBC % D-Dimer Quant (PE/DVT) Sodium Potassium Chloride Carbon Dioxide Anion Gap BUN Creatinine Estim Creat Clear Calc Est GFR (MDRD) Non-Af BUN/Creatinine Ratio Glucose Calcium Troponin T High Sens Troponin T Hi Sens 2 Hr 57 H* Urine Color Urine Clarity Urine pH Ur Specific [place] Urine Protein Urine Glucose (UA) Urine Ketones Urine Occult Blood Urine Nitrite Urine Bilirubin Urine Urobilinogen Ur Leukocyte Esterase Urine RBC Urine WBC Ur Squamous Epith Cells Urine Bacteria Urine Mucus Radiography Chest X-Ray - ED: 2 View, Read by ED Physician, Heart, Mediastinum, Bony Structures, Chronic Changes, Right Effusion and Left Effusion Diagnostic Testing: Clinical Impression(s) from Imaging Studies Chest X-Ray 08/28/24 19:28 IMPRESSION: 1. Bibasilar atelectasis or pneumonia. 2. Bilateral pleural effusions. Reading Location: [facility] Chest x-ray, 2 views, AP and lateral, noted by myself and radiologist. Prior sternotomy. Left-sided pacemaker. Bilateral moderate-sized pleural effusions. Rhythm Strip Rhythm Strip: Paced Rate: 108 Ectopy: None EKG Initial EKG: Attestation: I personally reviewed and interpreted this EKG as follows: Interpretation: Paced Comments: Paced rhythm 108 no acute signs of NE or ischemia. Discharge Plan Triage Chief Complaint: Shortness of Breath ED Provider: Vinh Lomeli Dx/Rx/DC Orders Prescriptions: No Action atorvastatin 10 [...] 175 mg Capsule 1 cap PO BID Entresto 24-26 mg tablet 1 tab PO BID Qty: 60 0RF furosemide 20 mg Tablet 40 mg PO DAILY 30 Days Qty: 60 2RF Primary Care Provider: Sigrid Call Stephen Referrals: Sigrid Call DO [Primary Care Provider] - Print Language: Botswanan What to do if you have Problems For any increased pain, shortness of breath, bleeding, nausea or vomiting, chestpain, or any unexpected problems, contact your Primary Care Provider. Call [facility] ([phone]) or report to the closest Emergency Room. Call 911 if necessary. 08/28/24 2457 <Electronically signed by Vinh Lomeli MD> Cosigner Signature (if applicable): CC: Sigrid Call DO ~ Signed [facility] Work Phone: 1(960) 416-176807-07-2025 Telephone encounter Note* Telephone Encounter - Suzi Haynes MA - 08/14/2024 11:56 AM EDT Patient transferred out of [facility]. Suzi Haynes MA [facility]07-07-2025 Miscellaneous Notes* Telephone Encounter - Suzi Haynes MA - 08/14/2024 11:56 AM EDT Patient transferred out of [facility]. Suzi Haynes MA [facility] Telephone encounter Note * Telephone Encounter - Suzi Haynes MA - 08/04/2024 8:12 AM EDT [facility]06-27-2025 Miscellaneous Notes* Telephone Encounter - Suzi Haynes MA - 08/04/2024 8:12 AM EDT [facility]25 Discharge summary Author Valeriy Connell [facility] Note Date/Time August 03, 2024 12:1 6pm [facility] Medical Records Department [address] [place] [address] Discharge Summary 08/03/24 1206 MR#: [id number] Acct: [id number] Name: ANALILIA MELENDREZ Rep #:[id number] : 1960 64 From: Valeriy Connell DO PCP: Sigrid Call DO Status:ADM IN Location: [facility] [id number] Providers Date of Admission: 08/01/24 Primary Care [...] mg PO BID reflux #60 tabs 06/27/23 selyhy-exrticmw-smdvmpc 24,000-76,000-120,000 unit capsule,delayed rel (Creon) 1cap PO [...] Do recommend that he do follow-up with [facility]. Do recommend that he follow-up with cardiologyand [...] % (Auto) 64.5, Lymph % (Auto) 21.3, Mcdonough % (Auto) 10.6 H, Eos % (Auto) [...] Valeriy Connell Primary Care Provider: Sigrid Call Consulting Providers: Iman Aguayo; Valeriy Ross Instructions [...] Qty: 60 2RF Referrals / Follow Up: [facility] [Provider Group] - Within 1 Month [facility] [Provider Group] - Within 1 Month Sigrid Call DO [Primary Care Provider] - Within 2 Weeks Disposition Disposition (needs filled in before D/C Order can be placed): Home, Self Care Charges/Coding Visit Charges Inpatient E&M: 39920 Disch Hosp >30min 08/03/24 1216 <Electronically signed by Valeriy Connell DO> Cosigner Signature (if applicable): CC: Dr. Valeriy Connell DO; Sigrid Call DO~ Signed [facility] Work Phone: [phone]) 113-351306-26-2025 Progress note Author Valeriy Connell [facility] Note Date/Time August 03, 2024 12:0 6pm [facility] Medical Records Department [address] [place] [address] Progress Note - Hospitalist 08/03/24 0742 MR#: [id number] Acct: [id number] Name: ANALILIA MELENDREZ Rep #:[id number] : 1960 64 From: Valeriy Connell DO PCP: Sigrid Call DO Status:ADM IN Location: [place] [address] Reason for Visit Reason for Visit: Diagnoses [...] % (Auto) 64.5, Lymph % (Auto) 21.3, Mcdonough % (Auto) 10.6 H, Eos % (Auto) [...] vascular congestion and pleural effusions, increased from 6/3. EF 35-40%. Complicated by severe . on [...] Cosigner Signature (if applicable): CC: ~ Signed [facility] Work Phone: 1(884) 397-888006-26-2025 Progress note Author Iman Aguayo [facility] Note Date/Time August 03, 2024 6:40 am [facility] Medical Records Department [address] [place] [address] Progress Note - Hospitalist 08/03/24 0639 MR#: [id number] Acct: [id number] Name: ANALILIA MELENDREZ Rep #:[id number] : 1960 64 From: Iman Aguayo MD PCP: Sigrid Call DO Status:ADM IN Location: [place] [address] Hospitalist Note PCP contacted hospital to discuss patient as they are having difficulties setting up follow-up with specialists as he is constantly being admitted and hasnot had follow-up for some time. She is requesting if able to add referral at discharge for gastroenterology and cardiology if possible. 08/03/24 0640 <Electronically signed by Iman Aguayo MD> Cosigner Signature (if applicable): CC: ~ Signed [facility] Work Phone: 1(910) 204-599306-25-2025 Consult note Author Suyapa Bustos [facility] Note Date/Time August 02, 2024 6:19 pm [facility] Medical Records Department [address] [place] [address] Consultation - Surgical 08/02/24 1712 MR#: [id number] Acct: [id number] Name: ANALILIA MELENDREZ Rep #:[id number] : 1960 64 From: Suyapa BALDERAS PCP: Sigrid Call DO Status:ADM IN Location: [place] [address] Assessment & Plan Assessment/Plan (1) H/O aortic valve replacement: (2) History of aortic aneurysm repair: PLAN: Plan CTA images were reviewed by Dr. Ross; demonstrate prior aortic aneurysm repairat the site of concern, changes appear consistent with postoperative changes rather than acute dissection. Reviewed ER physician note who documented discussion with F CT surgery who compared CTA Chest here this admission with CTA Chest from 2017 and felt it was stable and consistent with postsurgical changes as well. No indication for transfer or intervention at this time. Would advise he re-establish with [facility] CT for ongoing surveillance. HPI Consult Data Date of Consult: 08/02/24 HPI Narrative HPI Narrative: ANALILIA MELENDREZ, is a 64 M who presented to [facility] ER on 08/01/24 increased edema and [...] then had bioprosthetic aortic valve replacement around 2017 at [facility]. He denies any chest pain today. He reports his SOB is much better, he is overall feeling much better than yesterday. [facility] Medical History Malnutrition Pancytopenia Medically noncompliant Thrombocytopenia [...] reflux #60 tabs 06/27/23 07/31/24 Rx release btduap-opsgvlkm-zgoksxo 1 cap PO TIDCM #90 caps 06/0907/31/24 [...] (Auto) 64.6, Lymph % (Auto) 18.5 L, Mcdonough % (Auto) 12.9 H, Eos % (Auto) [...] aorta measures 4.0 cm in diameter. 3. Llpyjxke-nb-roadd pleural effusions bilaterally, slightly increased comparedto CT on 07/11/2024. Bibasilar consolidation may represent compressive atelectasis, though infection could appear similar. ABDOMEN AND PELVIS: 1. Mucosal hyperenhancement with mild wall thickening involving the stomach through jejunum, as may be seen with gastroenteritis, which could be of infectious, inflammatory, or ischemic etiology. 2. Hepatic steatosis. Reading Location: [id number] Chest CTA 08/01/24 16:40 IMPRESSION: CHEST: 1. No evidence of pulmonary embolism. 2. Tiny linear hypodensity at the aortic arch, possibly artifactual related to motion or blood flow, though dissection could appear similar. Consider Vascular Surgery consultation. Repeat imaging could be performed with ECG gating. Of note, the ascending thoracic aorta measures 4.0 cm in diameter. 3. Zicvulli-gg-vxqcc pleural effusions bilaterally, slightly increased comparedto CT on 07/11/2024. Bibasilar consolidation may represent compressive atelectasis, though infection could appear similar. ABDOMEN AND PELVIS: 1. Mucosal hyperenhancement with mild wall thickening involving the stomach through jejunum, as may be seen with gastroenteritis, which could be of infectious, inflammatory, or ischemic etiology. 2. Hepatic steatosis. Reading Location: [facility] Charges/Coding Visit Charges Inpatient E&M: 79297 Init Hosp L1 08/02/24 172 <Electronically signed by Suyapa BALDERAS> Cosigner Signature (if applicable): 08/02/241818 <Electronically signed by Valeriy Ross MD> CC: Sigrid Call DO~ Signed [facility] Work Phone: 1(605) 766-493906-25-2025 Progress note Author Valeriy Connell [facility] Note Date/Time August 02, 2024 3:00 pm [facility] Medical Records Department [address] [place] [address] Progress Note - Hospitalist 08/02/24 0744 MR#: [id number] Acct: [id number] Name: ANALILIA MELENDREZ Rep #:[id number] : 1960 64 From: Valeriy Connell DO PCP: Sigrid Call DO Status:ADM IN Location: [facility] [id number] Reason for Visit Reason for Visit: [...] 73.3 H, Lymph % (Auto) 16.1 L, Mcdonough % (Auto) 8.0, Eos % (Auto) 0.9, [...] 20, Alkaline Phosphatase 121,[place] [address] H, Total Protein 6.3, Albumin 3.0 L, [...] (Auto) 64.6, Lymph % (Auto) 18.5 L, Mcdonough % (Auto) 12.9 H, Eos % (Auto) [...] within the left lower lobe. Reading Location: [facility] Abdomen/Pelvis CT 08/01/24 16:40 IMPRESSION: CHEST: 1. No evidence of pulmonary embolism. 2. Tiny linear hypodensity at the aortic arch, possibly artifactual related to motion or blood flow, though dissection could appear similar. Consider Vascular Surgery consultation. Repeat imaging could be performed with ECG gating. Of note, the ascending thoracic aorta measures 4.0 cm in diameter. 3. Osyyqtsv-yp-krmlv pleural effusions bilaterally, slightly increased comparedto CT on 07/11/2024. Bibasilar consolidation may represent compressive atelectasis, though infection could appear similar. ABDOMEN AND PELVIS: 1. Mucosal hyperenhancement with mild wall thickening involving the stomach through jejunum, as may be seen with gastroenteritis, which could be of infectious, inflammatory, or ischemic etiology. 2. Hepatic steatosis. Reading Location: [facility] Chest CTA 08/01/24 16:40 IMPRESSION: CHEST: 1. No evidence of pulmonary embolism. 2. Tiny linear hypodensity at the aortic arch, possibly artifactual related to motion or blood flow, though dissection could appear similar. Consider Vascular Surgery consultation. Repeat imaging could be performed with ECG gating. Of note, the ascending thoracic aorta measures 4.0 cm in diameter. 3. Czwicxcr-pf-coklm pleural effusions bilaterally, slightly increased comparedto CT on 07/11/2024. Bibasilar consolidation may represent compressive atelectasis, though infection could appear similar. ABDOMEN AND PELVIS: 1. Mucosal hyperenhancement with mild wall thickening involving the stomach through jejunum, as may be seen with gastroenteritis, which could be of infectious, inflammatory, or ischemic etiology. 2. Hepatic steatosis. Reading Location: [facility] Rhythm Strip Rhythm Strip: Sinus Rhythm [...] is since resolved. (2) Elevated troponin: PLAN: 2/2 CHF exacerbation. [...] CAT scan. Charges/Coding Visit Charges Inpatient E&M: 57797 Subs Hosp L3 08/02/24 1500 <Electronically signed by Valeriy Connell DO> Cosigner Signature (if applicable): CC: ~ Signed [facility] Work Phone: 1(647) 227-484206-25-2025 History and physical note Author Iman Aguayo [facility] Note Date/Time August 02, 2024 2:41 am [facility] Medical Records Department [address] [place] [address] H&P Exam - Hospitalist 08/01/242043 MR#: [id number] Acct: [id number] Name: ANALILIA MELENDREZ Rep #:[id number] : 1960 64 From: Iman Aguayo MD PCP: Sigrid Call DO Status:ADM IN Location: [place] [id number] HPI - General General Date of Admission: [...] GERD, Tobacco use who presents to the [facility] ED on 08/02/2024with history of 3 [...] physician did discuss case at length with [facility] who reviewed imaging and noted that the [...] 1, labetalol 10 mg IV x 1. [facility] Medical History Malnutrition Pancytopenia Medically noncompliant Thrombocytopenia [...] reflux #60 tabs 06/27/23 07/31/24 Rx release lewlcg-tvwlpvxm-itcxjsj 1 cap PO TIDCM #90 caps /03/0407/31/24 Rx 24,000-76,000-120,000 unit capsule,delayed rel (Creon) ferrous [...] 73.3 H, Lymph % (Auto) 16.1 L, Mcdonough % (Auto) 8.0, Eos % (Auto) 0.9, [...] Alkaline Phosphatase 121, [place] [address] H, Total Protein 6.3, Albumin 3.0 L, Globulin 3.3, Albumin/Globulin Ratio 0.9, Lipase 9 L Imaging Radiology Impression Chest X-Ray 08/01/24 15:30 IMPRESSION: Mild bibasilar pleural effusions. Bilateral lower lobe opacities not excluded with residual opacity within the left lower lobe. Reading Location: [facility] Abdomen/Pelvis CT 08/01/24 16:40 IMPRESSION: CHEST: 1. No evidence of pulmonary embolism. 2. Tiny linear hypodensity at the aortic arch, possibly artifactual related to motion or blood flow, though dissection could appear similar. Consider Vascular Surgery consultation. Repeat imaging could be performed with ECG gating. Of note, the ascending thoracic aorta measures 4.0 cm in diameter. 3. Pulhtiwn-ni-vgnba pleural effusions bilaterally, slightly increased comparedto CT [...] aorta measures 4.0 cm in diameter. 3. Caepftgl-pa-umdts pleural effusions bilaterally, slightly increased comparedto CT on 07/11/2024. Bibasilar consolidation may represent compressive atelectasis, though infection could appear similar. ABDOMEN AND PELVIS: 1. Mucosal hyperenhancement with mild wall thickening involving the stomach through jejunum, as may be seen with gastroenteritis, which could be of infectious, inflammatory, or ischemic etiology. 2. Hepatic steatosis. Reading Location: [id number] Assessment & Plan Assessment/Plan (1) Acute HFrEF [...] GERD, Tobacco use who presents to the [facility] ED on 08/02/2024with history of 3 [...] Stage II per GFR trending: Admission BUN/Cr 9/1.17, GFR 70, baseline renal function primarily 1.1-1.2, repeat BMP in AM. #9. History sick sinus syndrome: Status post pacemaker placement, encourage continued follow-up for interrogation as previously arranged. #10. Known ascending aortic dissection status postrepair: Patient with history of ascending aortic dissection, status postrepair, encourage continued follow- upwith CT surgery/vascular surgery as previously arranged, [facility] reviewed images as noted and findings are [...] prophylaxis: Lovenox. Charges/Coding Visit Charges Inpatient E&M: 76399 Init Hosp L3 08/02/24 0241 <Electronically signed by Iman Aguayo MD> Cosigner Signature (if applicable): CC: Dr. Iman Aguayo MD; Sigrid Call DO~ Signed [facility] Work Phone: 1(891) 639-881206-25-2025 Discharge summary Author [facility] Note Date/Time August 01, 2024 11:0 6pm [facility] Medical Records Department [address] [place] [address] Emergency Department Summary 08/01/24 MR#: [id number] Acct: [id number] Name: DARRINJANEENANALILIA JAMARI Rep #:[id number] : 1960 64 From: Tierney Rosado PCP: Sigrid Call DO Status:ADM IN Location: [place] [id number] HPI History of Present Illness Chief Complaint: Shortness [...] to be associated with chronic alcohol use. [facility] Medical History Malnutrition Pancytopenia Medically noncompliant Thrombocytopenia [...] reflux #60 tabs 06/27/23 07/31/24 Rx release mjlgpo-itwhnits-ycrlbyc 1 cap PO TIDCM #90 caps 06/0907/31/24 [...] / Time No Known Allergies Allergy Verified 06/24/25 22:20 Family History Father CAD (coronary artery [...] with cardiothoracic surgery and cardiac fellow at [facility], Dr. Callahan and , who do not [...] 73.3 H Lymph % (Auto) 16.1 L Mcdonough % (Auto) 8.0 Eos % (Auto) 0.9 [...] Alkaline Phosphatase 121 [place] [address] H Total Protein 6.3 Albumin 3.0 L Globulin 3.3 Albumin/Globulin Ratio 0.9 Lipase 9 L Radiography Diagnostic Testing: Clinical Impression(s) from Imaging Studies Chest X-Ray 08/01/24 15:30 IMPRESSION: Mild bibasilar pleural effusions. Bilateral lower lobe opacities not excluded with residual opacity within the left lower lobe. Reading Location: [id number] Abdomen/Pelvis CT 08/01/24 16:40 IMPRESSION: CHEST: 1. No evidence of pulmonary embolism. 2. Tiny linear hypodensity at the aortic arch, possibly artifactual related to motion or blood flow, though dissection could appear similar. Consider Vascular Surgery consultation. Repeat imaging could be performed with ECG gating. Of note, the ascending thoracic aorta measures 4.0 cm in diameter. 3. Uhsydkyg-gi-bqhtu pleural effusions bilaterally, slightly increased comparedto CT on 07/11/2024. Bibasilar consolidation may represent compressive atelectasis, though infection could appear similar. ABDOMEN AND PELVIS: 1. Mucosal hyperenhancement with mild wall thickening involving the stomach through jejunum, as may be seen with gastroenteritis, which could be of infectious, inflammatory, or ischemic etiology. 2. Hepatic steatosis. Reading Location: [id number] Chest CTA 08/01/24 16:40 IMPRESSION: CHEST: 1. No evidence of pulmonary embolism. 2. Tiny linear hypodensity at the aortic arch, possibly artifactual related to motion or blood flow, though dissection could appear similar. Consider Vascular Surgery consultation. Repeat imaging could be performed with ECG gating. Of note, the ascending thoracic aorta measures 4.0 cm in diameter. 3. Ulzcipvv-yo-pjmaw pleural effusions bilaterally, slightly increased comparedto CT on 07/11/2024. Bibasilar consolidation may represent compressive atelectasis, though infection could appear similar. ABDOMEN AND PELVIS: 1. Mucosal hyperenhancement with mild wall thickening involving the stomach through jejunum, as may be seen with gastroenteritis, which could be of infectious, inflammatory, or ischemic etiology. 2. Hepatic steatosis. Reading Location: [facility] Rhythm Strip Rhythm Strip: Sinus Rhythm Rate: 90 Ectopy: PAC(s) EKG Initial EKG: Attestation: I personally reviewed and interpreted this EKG as follows: Interpretation: Sinus Rhythm Comments: Normal sinus rhythm at a rate of 90 bpm with PACs Right bundle izzy block Normal ST segments Normal QRS Mildly prolonged QTc of 521 Compared to prior EKG on 06/25/2024, no significant record changer Discussion w/another healthcare provider: Hospitalist and Binding Nicker (Cardiothoracic surgery at [facility]) Discharge Plan Dx/Rx/DC Orders Clinical Impression: Acute HFrEF (heart failure with reduced ejection fraction), HTN (hypertension),H/O aortic valve replacement, Pleural effusion Disposition Disposition: Acute Care Hospital [facility] Discharge Date/Time: 08/01/24 21:53 What to do if you have Problems For any increased pain, shortness of breath, bleeding, nausea or vomiting, chestpain, or any unexpected problems, contact your Primary Care Provider. Call [facility] ([phone]) or report to the closest Emergency Room. Call 911 if necessary. 08/01/24 2306 <Electronically signed by Tierney Macdonald DO> Cosigner Signature (if applicable): CC: Sigrid Call DO ~ Signed [facility] Work Phone: 1(326) 423-241206-24-2025 Radiology Diagnostic study [facility]06-24-2025 Radiology Diagnostic study [facility]06-24-2025 Radiology Diagnostic study [facility] 07-17-2024 NoteHNO ID: [id number] Author: RADHA ETIENNE RN Service: ? Author Type: Registered Nurse Type: Progress Notes Filed: 07/17/2024 14:28 Note Text: TRANSITIONAL CARE MANAGEMENT (TCM) COMMUNITY MONITORING PROGRAM - [place] SUMMARY: Pt discharged from [facility] on 07/11/24. Patient seen Inpatient TONY Visit? N/A. Patient seen ICARE Program? N/A. Contact made with patient: Yes Hi my name is Radha Etienne RN and I am calling from the [facility] on behalf of your PCP, [...] a new PCP and hung up. Outreach [facility]06-09-2025 History of Present illness Narrative* Radha Etienne RN - 07/17/2024 2:13 PM EDT TRANSITIONAL CARE MANAGEMENT (TCM) COMMUNITY MONITORING PROGRAM - [place] SUMMARY: Pt discharged from [facility] on 07/11/24. Patient seen Inpatient TONY Visit? N/A. Patient seen ICARE Program? N/A. Contact made with patient: Yes Hi my name is Radha Etienne RN and I am calling from the [facility] on behalf of your PCP, Marianna Wagner [...] hung up. Outreach Ended documented in this encounterKindred Healthcare06-09-2025 NotePatient Outreach (AGACM) DARRINANALILIA VERNON ([id number]) 1960 M Date Time Provider Department 07/17/24 RADHA ETIENNE [facility] During your visit today, we recorded the following information about you: Radha Etienne, RN 07/17/2024 2:28 PM Signed TRANSITIONAL CARE MANAGEMENT (TCM) COMMUNITY MONITORING PROGRAM - [place] SUMMARY: Pt discharged from [facility] on 07/11/24. Patient seen Inpatient TONY Visit? N/A. Patient seen ICARE Program? N/A. Contact made with patient: Yes Hi my name is Radha Etienne, ELIS and I am calling from the [facility] on behalf of your PCP, Marianna Wagner APRN.GAMEWELL OPERATOR I understand you were recently in the [...] Assessed Reason for Visit: Transition Of Care [0844] Cmt: Andres D/Stephen 07/14/24 Prescriptions as of [...] fourteen (14) days to upper arm. 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*08/09/2023 Cognitive communication deficit [R41.841] 05/21/2023 Depression [F32.A] 08/09/2023 Elevated liver enzymes [R74.8] 08/09/2023 GERD (gastroesophageal reflux disease) [K21.9] 08/09/2023 Hiatal hernia [K44.9] 08/09/2023 History of aortic valve replacement [Z95.2] 08/09/2023 Hepatic steatosis [K76.0] 08/09/2023 (more content not included)...[facility]06-06-2025 Discharge summary Author Conrado Morel [facility] Note Date/Time July 14, 2024 8:42a leah [facility] Medical Records Department [address] [place] [address] Discharge Summary 07/14/24 0839 MR#: [id number] Acct: [id number] Name: ANALILIA MELENDREZ Rep #:[id number] : 1960 63 From: Conrado Morel MD PCP: Sigrid Call DO Status:ADM IN Location: MS3 [id number] Providers Date of Admission: 07/11/24 Date of [...] - Requested for PT OT eval and psychologist social to assist with discharge planning 15. Tobacco [...] mg PO BID reflux #60 tabs 06/27/23 dmffwu-zpsquorp-pdapkyb 24,000-76,000-120,000 unit capsule,delayed rel (Creon) 1cap PO [...] Conrado Morel Primary Care Provider: Sigrid Call [facility] Consulting Providers: Denys Fontanez; Melonie De [...] Self Care Charges/Coding Visit Charges Inpatient E&M: 67856 Disch Hosp >30min 07/14/24 0842 <Electronically signed by Conrado Morel MD> Cosigner Signature (if applicable): CC: Dr. Conrado Morel MD; Sigrid Call DO~ Signed [facility] Work Phone: 1(607) 259-886106-06-2025 [facility]06-05-2025 Progress note Author Conrado Whitegiancarlo [facility] Note Date/Time July 13, 2024 10:28 am [facility] Medical Records Department [address] [place] [address] Progress Note - Hospitalist 07/13/24 1023 MR#: [id number] Acct: [id number] Name: ANALILIA MELENDREZ Rep #:[id number] : 1960 63 From: Conrado Morel MD PCP: ALAN Wilde Status:ADM I N Location: [place] [address] Reason for Visit Reason for Visit: Diagnoses [...] 74.2 H, Lymph % (Auto) 16.6 L, Mcdonough % (Auto) 6.6, Eos % (Auto) 1.4, [...] or mass effect is seen. Reading Location: [id number] Small Bowel X-Ray 07/12/24 14:30 IMPRESSION: No evidence of ileus or obstruction. Reading Location: [id number] Physical Exam Narrative GENERAL: cooperative HEENT: Atraumatic; [...] - Requested for PT OT eval and psychologist social to assist with discharge planning 15. Tobacco [...] documentation, 38Minutes Charges/Coding Visit Charges Inpatient E&M: 94747 Subs Hosp L2 07/13/24 1028 <Electronically signed by Conrado Morel MD> Cosigner Signature (if applicable): CC: ~ Signed [facility] Work Phone: 1(721) 714-946806-05-2025 Progress note Author Dian Mendoza [facility] Note Date/Time July 13, 2024 8:19a m [facility] Medical Records Department [address] [place] [address] Progress Note - Surgery 07/13/24 0808 MR#: [id number] Acct: [id number] Name: ANALILIA MELENDREZ Rep #:[id number] : 1960 63 From: Dian ZUNIGAC PCP: ALAN Wilde Status:ADM I N Location: MS3 [id number] Subjective Subjective Patient evaluated resting comfortably in [...] 07/13/24 02:17 07/13/24 02:17 07/13/24 02:17 07/13/24 02:17 07/13/24 02:17 07/13/24 02:17 Oxygen Delivery Method Room Air Weight: [...] 74.2 H, Lymph % (Auto) 16.6 L, Mcdonough % (Auto) 6.6, Eos % (Auto) 1.4, [...] or mass effect is seen. Reading Location: [address] Small Bowel X-Ray 07/12/24 14:30 IMPRESSION: No evidence of ileus or obstruction. Reading Location: [id number] Physical Exam GI GI Narrative: Abdomen- soft, [...] Thank you Charges/Coding Visit Charges Inpatient E&M: 11106 Subs Hosp L2 07/13/24 0812 <Electronically signed [...] surgical plans. 07/13/24 0819<Electronically signed by Analilia Miranda MD> Cosigner Signature (if applicable): cc: ~* Signed [facility] Work Phone: 1(641) 415-722606-04-2025 Radiology Diagnostic study [facility]06-04-2025 Progress note Author Conrado Morel [facility] Note Date/Time July 12, 2024 10:31 am [facility] Medical Records Department [address] [place] [address] Progress Note - Hospitalist 07/12/24714 MR#: [id number] Acct: [id number] Name: ANALILIA MELENDREZ JAMARI Rep #:[id number] : 1960 63 From: Conrado Morel MD PCP: ALAN Wilde Status:ADM I N Location: [place] [address] Reason for Visit Reason for Visit: Diagnoses [...] Clarity Clear, Urine pH 8.0, Ur Specific [place] 1.010, Urine Protein 15 H, Urine Glucose [...] 74.9 H, Lymph % (Auto) 15.4 L, Mcdonough % (Auto) 7.7, Eos % (Auto) 0.4, [...] % (Auto) 59.7, Lymph % (Auto) 26.0, Mcdonough % (Auto) 10.5 H, Eos % (Auto) [...] pleural effusion with compressive atelectasis. Reading Location: [facility] Physical Exam Narrative GENERAL: cooperative HEENT: Atraumatic; [...] - Requested for PT OT eval and psychologist social to assist with discharge planning 15. Tobacco [...] aortic valve stenosis Aortic valve area 1.1 [id number] aortic valve gradient 60.2 mmHg. Mean aortic [...] documentation,52 Minutes Charges/Coding Visit Charges Inpatient E&M: 56257 Subs Hosp L3 07/12/24 1031 <Electronically signed by Conrado Morel MD> Cosigner Signature (if applicable): CC: ~ Signed [facility] Work Phone: [phone]) 788-491606-04-2025 Consult note Author Dian Mendoza [facility] Note Date/Time July 12, 2024 10:15 am [facility] Medical Records Department [address] [place] [address] Consultation - Surgical 07/12/24 0927 MR#: [id number] Acct: [id number] Name: ANALILIA MELENDREZ Rep #:[id number] : 1960 63 From: Dian ZUNIGAC PCP: ALAN Wilde Status:ADM I N Location: [place] [address] Assessment & Plan Assessment/Plan (1) Abdominal pain: [...] He notes his abdominal pain has improved. [facility] Medical History Thrombocytopenia Chronic pancreatitis Macrocytosis associated [...] reflux #60 tabs 06/27/23 Unknown Rx release bavijs-pznapfoh-ygqwpno 1 cap PO TIDCM #90 caps 06/09 [...] Clarity Clear, Urine pH 8.0, Ur Specific [place] 1.010, Urine Protein 15 H, Urine Glucose [...] 74.9 H, Lymph % (Auto) 15.4 L, Mcdonough % (Auto) 7.7, Eos % (Auto) 0.4, [...] % (Auto) 59.7, Lymph % (Auto) 26.0, Mcdonough % (Auto) 10.5 H, Eos % (Auto) [...] pleural effusion with compressive atelectasis. Reading Location: [facility] Charges/Coding Visit Charges Inpatient E&M: 36992 Init Hosp L2 07/12/24 1015 <Electronically signed by Dian BALDERAS PA-C> Cosigner Signature (if applicable): CC: SUSAN-C Marianna Wagner~ Signed [facility] Work Phone: 1(813) 793-504206-04-2025 Radiology Diagnostic study [facility]06-03-2025 History and physical note Author Melonie De La Rosa [facility] Note Date/Time July 11, 2024 3:21p m [facility] Medical Records Department [address] [place] [address] H&P Exam - Hospitalist 07/11/24 1405 MR#: [id number] Acct: [id number] Name: ANALILIA MELENDREZ JAMARI Rep #:[id number] : 1960 63 From: Melonie De La Rosa DO PCP: ALAN Wilde Status:REG E R Location: ED HPI - General General Date of Admission: 07/11/24 Date of Service: 07/11/24 Chief Complaint: Suicidal ideation/nausea vomiting HPI Narrative ANALILIA MELENDREZ, is a 63 M who presented to the emergency department at [facility] on 07/11/2024 with a chief complaint [...] discussed with Dr. Fontanez prior to admission. [facility] Medical History Thrombocytopenia Chronic pancreatitis Macrocytosis associated [...] reflux #60 tabs 06/27/23 Unknown Rx release fcbyji-uzeiuiwl-qlokjqo 1 cap PO TIDCM #90 caps 06/09 [...] Clarity Clear, Urine pH 8.0, Ur Specific [place] 1.010, Urine Protein 15 H, Urine Glucose [...] 74.9 H, Lymph % (Auto) 15.4 L, Mcdonough % (Auto) 7.7, Eos % (Auto) 0.4, [...] pleural effusion with compressive atelectasis. Reading Location: [facility] Assessment & Plan Assessment/Plan (1) Abdominal pain: [...] need ALBERT and probable referral to a [facility] - Outpatient follow-up here with cardiology [...] Had thoracic dissection and was treated at [facility] History of heroin abuse - Remote [...] Full code Charges/Coding Visit Charges Inpatient E&M: 39036 Init Hosp L2 07/11/24 1521 <Electronically signed by Melonie De La Rosa DO> Cosigner Signature (if applicable): CC: CLAM DREDGER-C Marianna Wagner; Dr. Melonie De La Rosa DO~ Signed [facility] Work Phone: 1(874) 590-420206-03-2025 Discharge summary Author Perez Ribeiro [facility] Note Date/Time July 11, 2024 2:09p m [facility] Medical Records Department [address] [place] [address] Emergency Department Summary 07/11/24 MR#: [id number] Acct: [id number] Name: ANALILIA MELENDREZ Rep #:[id number] : 1960 63 From: Perez Ribeiro DO [...] he has also been very nauseous lately. [facility] Medical History Thrombocytopenia Chronic pancreatitis Macrocytosis associated [...] PO DAILYCM vit padilla #0 tabs 04/11/24 Unknown Rx tablet (Vitamin B-1) pantoprazole 40 mg tablet,delayed 40 mg PO BID reflux #60 tabs 06/27/23 Unknown Rx release skefrc-wtztutje-uxookeq 1 cap PO TIDCM #90 caps 06/09 [...] following commands knew that he was at [facility] the year is 2024 Skin: Warm, dry, [...] 74.9 H Lymph % (Auto) 15.4 L Mcdonough % (Auto) 7.7 Eos % (Auto) 0.4 [...] Clarity Clear Urine pH 8.0 Ur Specific [place] 1.010 Urine Protein 15 H Urine Glucose [...] pleural effusion with compressive atelectasis. Reading Location: [facility] Discharge Plan Triage Chief Complaint: Mental Health [...] Provider: Marianna Wagner NP Referrals: Marianna Wagner CLAM DREDGER, CLAM DREDGER-C [Primary Care Provider] - Print Language: Botswanan Disposition Disposition: Acute Care Hospital [facility] What to do if you have Problems For any increased pain, shortness of breath, bleeding, nausea or vomiting, chestpain, or any unexpected problems, contact your Primary Care Provider. Call [facility] ([phone]) or report to the closest Emergency Room. Call 911 if necessary. 07/11/24 1214 <Electronically signed by Perez Ribeiro DO> Cosigner Signature (if applicable): CC: SUSAN-C Marianna Wagner ~ Signed [facility] Work Phone: [phone]) 794-372506-03-2025 Discharge summary Author [facility] Note Date/Time July 11, 2024 2:09p m [facility] Medical Records Department [address] [place] [address] Emergency Department Summary 07/11/24 MR#: [id number] Acct: [id number] Name: ANALILIA MELENDREZ Rep #:[id number] : 1960 63 From: Perez Ribeiro DO [...] he has also been very nauseous lately. [facility] Medical History Thrombocytopenia Chronic pancreatitis Macrocytosis associated [...] reflux #60 tabs 06/27/23 Unknown Rx release jscgvj-vjpchhci-ihferma 1 cap PO TIDCM #90 caps 06/09 [...] following commands knew that he was at [facility] the year is 2024 Skin: Warm, dry, [...] 74.9 H Lymph % (Auto) 15.4 L Mcdonough % (Auto) 7.7 Eos % (Auto) 0.4 [...] Clarity Clear Urine pH 8.0 Ur Specific [place] 1.010 Urine Protein 15 H Urine Glucose [...] pleural effusion with compressive atelectasis. Reading Location: [facility] Discharge Plan Triage Chief Complaint: Mental Health [...] Provider: Marianna Wagner NP Referrals: Marianna Wagner CLAM DREDGER, CLAM DREDGER-C [Primary Care Provider] - Print Language: Botswanan Disposition Disposition: Acute Care Hospital [facility] What to do if you have Problems For any increased pain, shortness of breath, bleeding, nausea or vomiting, chestpain, or any unexpected problems, contact your Primary Care Provider. Call [facility] ([phone]) or report to the closest Emergency Room. Call 911 if necessary. 07/11/24 1409 <Electronically signed by Perez Ribeiro DO> Nixonign Signature (if applicable): CC: CLAM DREDGER-C Marianna Wagner ~ Signed [facility] Work Phone: 1(420) 992-543306-03-2025 Radiology Diagnostic study [facility]06-03-2025 NoteHNO ID: [id number] Author: RADHA ETIENNE RN Service: ? Author Type: Registered Nurse Type: Progress Notes Filed: 07/11/2024 12:49 Note Text: AG TRANSITIONAL CARE MANAGEMENT (TCM) FOLLOW-UP NOTE Patient identified by name and date of : YES Diagnosis: CHF Summary: TCM RN called for TCM f/u (D/C 07/06/24). Pt isn't home at this time. Health leads screening tool questions performed? Addressed 07/07/24 N/A Concerns: N/A Awnings Mechanic plan for next outreach: Will follow-up next wk. Signature: Radha Etienne RN July 11[facility]06[facility] History of Present illness Narrative* Radha Etienne RN - 07/11/2024 12:34 PM EDT AG TRANSITIONAL CARE MANAGEMENT (TCM) FOLLOW-UP NOTE Patient identified by name and date of : YES Diagnosis: CHF Summary: TCM RN called for TCM f/u (D/C 07/06/24). Pt isn't home at this time. Health leads screening tool questions performed? Addressed 07/07/24 N/A Concerns: N/A Awnings Mechanic plan for next outreach: Will follow-up next wk. Signature: Radha Etienne RN July 11, 2024 documented in this encounterKindred Healthcare06-03-2025 NotePatient Outreach (AGACM) ANALILIA MELENDREZ ([id number]) 1960 M Date Time Provider Department 07/11/24 RADHA ETIENNE [facility] During your visit today, we recorded the following information about you: Radha Etienne RN 07/11/2024 12:49 PM Signed AG TRANSITIONAL CARE MANAGEMENT (TCM) FOLLOW-UP NOTE Patient identified by name and date of : YES Diagnosis: CHF Summary: TCM RN called for TCM f/u (D/C 07/06/24). Pt isn't home at this time. Health leads screening tool questions performed? Addressed 07/07/24 N/A Concerns: N/A Awnings Mechanic plan for next outreach: Will follow-up next [...] fourteen (14) days to upper arm. 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 Author Type: Registered Nurse Type: Progress Notes Filed: 07/07/2024 11:25 Note Text: TRANSITIONAL CARE MANAGEMENT (TCM) COMMUNITY MONITORING PROGRAM - [place] SUMMARY: Pt discharged from [facility] on 07/06/24. Admitted for: CHF Non-compliance Patient seen Inpatient TONY Visit? N/A. Patient seen ICARE Program? N/A. Contact made with patient: Yes Hi my name is Radha Etienne RN and I am calling from the [facility] on behalf of your PCP, Marianna Wagner APRN.GAMEWELL OPERATOR I understand you were recently in the [...] like to speak with a social work software team leader to help give you support for any [...] TAKEN: No action required WRAP AROUND SERVICES: Retail Loan Originator Assistant Referral - Declined Patient educated on importance [...] - encouraged to do so. Radha Etienne, [facility]05-30-2025 History of Present illness Narrative* Radha Etienne, RN - 07/07/2024 10:53 AM EDT TRANSITIONAL CARE MANAGEMENT (TCM) COMMUNITY MONITORING PROGRAM - [place] SUMMARY: Pt discharged from [facility] on 07/06/24. Admitted for: CHF Non-compliance Patient seen Inpatient TONY Visit? N/A. Patient seen ICARE Program? N/A. Contact made with patient: Yes Hi my name is Radha Etienne RN and I am calling from the [facility] on behalf of your PCP, Marianna Wagner APRN.GAMEWELL OPERATOR I understand you were recently in the [...] like to speak with a social work software team leader to help give you support for any [...] TAKEN: No action required WRAP AROUND SERVICES: Retail Loan Originator Assistant Referral - Declined Patient educated on importance [...] telephone visit with your PCP. ACTION TAKEN: [facility] Primary Care Provider Visit Scheduled: No - Only wants to follow up with specialty. Pt declines to schedule a hospital f/u appointment w/ his PCP. He is considering switching to a PCPcloser to home. States that he needs to call and schedule w/ his Cards - encouraged to do so. Radha Etienne RN documented in this encounterKindred Healthcare05-30-2025 NotePatient Outreach (AGACM) ANALILIA MELENDREZ ([id number]) 1960 M Date Time Provider Department 07/07/24 RADHA ETIENNE During your visit today, we recorded the following information about you: Radha Etienne, RN 07/07/2024 11:25 AM Signed TRANSITIONAL CARE MANAGEMENT (TCM) COMMUNITY MONITORING PROGRAM - [place] SUMMARY: Pt discharged from [facility] on 07/06/24. Admitted for: CHF Non-compliance Patient seen Inpatient TONY Visit? N/A. Patient seen ICARE Program? N/A. Contact made with patient: Yes Hi my name is Radha Etienne RN and I am calling from the [facility] on behalf of your PCP, Marianna Wagner APRN.GAMEWELL OPERATOR I understand you were recently in the [...] like to speak with a social work software team leader to help give you support for any [...] TAKEN: No action required WRAP AROUND SERVICES: Retail Loan Originator Assistant Referral - Declined Patient educated on importance [...] Assessed Reason for Visit: Transition Of Care [6150] Cmt: Andres D/C 07/06/24 Prescriptions as of 07/07/2024 - traMADol [...] ramipril (ALTACE) (more content not included)...[facility] 07-06-2024 [facility]05-28-2025 Progress note Author Chris Aragon [facility] Note Date/Time July 05, 2024 1:44p leah [facility] Medical Records Department [address] [place] [address] Progress Note - Hospitalist 07/05/24 1119 MR#: [id number] Acct: [id number] Name: ANALILIA MELENDREZ Rep #:[id number] : 1960 63 From: Chris de la cruz DO PCP: Marianna Wagner CLAM DREDGER-C Status:ADM I N Location: [place] [address] Reason for Visit Reason for Visit: Diagnoses [...] Antibody < 0.2, Sm (Khalil) Antibody <0.2, RN SURGERY ICU Antibody <0.2, Scl-70 Scleroderma Ab <0.2, Double [...] is a 63-year-old male who presented to [facility] ED on 06/30/2024 with worsening abdominal pain and distention. 1. New onset HFrEF, acute hypoxia with bilateral pleural effusions, moderate tosevere bioprosthetic aortic valve stenosis ? Cardiology following. History of bioprosthetic valve replacement in 2016 withmechanical valve replacement prior to that. Echo [...] 35 minutes. Charges/Coding Visit Charges Inpatient E&M: 73869 Subs Hosp L2 07/05/24 1344 <Electronically signed by Chris Aragon DO> Cosigner Signature (if applicable): CC: ~ Signed [facility] Work Phone: 1(349) 879-554505-27-2025 Progress note Author Antony Friend [facility] Note Date/Time July 04, 2024 5:44p m [facility] Medical Records Department [address] [place] [address] Progress Note 07/04/24 1741 MR#: [id number] Acct: [id number] Name: ANALILIA MELENDREZ Rep #:[id number] : 1960 63 From: Antony Friend DO PCP: Marianna Wagner NP-C Status:ADM I N Location: [place] [address] Assessment & Plan Assessment/Plan (1) Chronic pancreatitis: [...] workup. Poor prognosis. Visit Charges Inpatient E&M: 78879 Subs Hosp L3 07/04/24 4896 <Electronically signed by Antony Espitia DO> Antony Espitia DO Cosigner Signature (if applicable): CC: ~ Signed [facility] Work Phone: 1(745) 185-917605-27-2025 Progress note Author Chris Aragon [facility] Note Date/Time July 04, 2024 12:39 pm [facility] Medical Records Department [address] [place] [address] Progress Note - Hospitalist 07/04/24 1135 MR#: [id number] Acct: [id number] Name: ANALILIA MELENDREZ Rep #:[id number] : 1960 63 From: Chris de la cruz DO PCP: ALAN Wilde Status:ADM I N Location: [place] [address] Reason for Visit Reason for Visit: Diagnoses [...] Total Protein Cancelled, Urine Albumin Cancelled, U Epiof-6-Rqruzrnc Cancelled, U Kfmmo-3-Eysdhqny Cancelled, U Beta Globulin Cancelled, U Gamma Globulin Cancelled, U PEP M-Herb Cancelled, Urine Immunofixation Cancelled, Urine HELENA Interpret Cancelled, Ur Immunofix PEP Note Cancelled, RAMANA-1 Antibody TNP, Sm (Khalil) Antibody TNP, RN SURGERY ICU Antibody TNP, Scl-70 Scleroderma Ab TNP, Antichromatin [...] is a 63-year-old male who presented to [facility] ED on 06/30/2024 with worsening abdominal [...] 35 minutes. Charges/Coding Visit Charges Inpatient E&M: 29124 Subs Hosp L2 07/04/24 1239 <Electronically signed by Chris Aragon DO> Cosigner Signature (if applicable): CC: ~ Signed [facility] Work Phone: 1(694) 191-644805-27-2025 Consult note Author Yaneli Carbone [facility] Note Date/Time July 04, 2024 10:59 am [facility] Medical Records Department [address] [place] [address] Consultation - Cardiology 07/04/24 1030 MR#: [id number] Acct: [id number] Name: ANALILIA MELENDREZ Rep #:[id number] : 1960 63 From: Yaneli Carbone MD PCP: ALAN Wilde Status:ADM I N Location: [place] [address] Assessment & Plan Assessment/Plan (1) Pancytopenia: (2) [...] a redo valve using bovine valve at [facility]. As well he had a pacemaker. He [...] discuss further plan he does have established soft sugar cutter at [facility] But the patient would like to follow-up here with the cardiac team at [facility]. Yaneli Carbone MD,FACC,[facility] HPI Consult Data Date of Consult: 07/04/24 HPI Narrative Reason for Consultation: Moderate LV systolic dysfunction/moderate/severe bioprosth. aortic stenosis HPI Narrative: ANALILIA MELENDREZ, is a 63 M who presents [facility] Medical History (Updated 07/03/24 @ 14:55 by [...] reflux #60 tabs 06/27/23 Unknown Rx release gkbhdm-gukscyex-ypasqri 1 cap PO TIDCM #90 caps 06/09 [...] Exam Cardio Cardio Narrative: Review of the cardiac exercise physiologist showed paced atrial rhythm Cardiac exam S1-S2 [...] Total Protein Cancelled, Urine Albumin Cancelled, U Eefyp-9-Saukbdqz Cancelled, U Aaxsi-8-Qznlcbma Cancelled, U Beta Globulin Cancelled, U Gamma Globulin Cancelled, U PEP M-Herb Cancelled, Urine Immunofixation Cancelled, Urine HELENA Interpret Cancelled, Ur Immunofix PEP Note Cancelled, RAMANA-1 Antibody TNP, Sm (Khalil) Antibody TNP, RN SURGERY ICU Antibody TNP, Scl-70 Scleroderma Ab TNP, Antichromatin [...] Carbone MD> Cosigner Signature (if applicable): CC: CLAM DREDGER-C Marianna Wagner; Dr. Conrado Pro, DO~ Signed [facility] Work Phone: 1([phone]) 686-415005-26-2025 Progress note Author Chris Aragon [facility] Note Date/Time July 03, 2024 2:55p m [facility] Medical Records Department [address] [place] [address] Progress Note - Hospitalist 07/03/24 1032 MR#: [id number] Acct: [id number] Name: ANALILIA MELENDREZ Rep #:[id number] : 1960 63 From: Chris de la cruz DO PCP: ALAN Wilde Status:ADM I N Location: [place] [address] Reason for Visit Reason for Visit: Diagnoses [...] is a 63-year-old male who presented to [facility] ED on 06/30/2024 with worsening abdominal [...] above. History of bioprosthetic valve replacement in 2016 [...] 35 minutes. Charges/Coding Visit Charges Inpatient E&M: 33659 Subs Hosp L2 07/03/24 1614 <Electronically signed by Chris Aragon DO> Cosigner Signature (if applicable): CC: ~ Signed [facility] Work Phone: 1(943) 307-169205-26-2025 Consult note Author Antony Espitia [facility] Note Date/Time July 03, 2024 11:50 am [facility] Medical Records Department [address] [place] [address] Consultation - GI 07/03/24 1127 MR#: [id number] Acct: [id number] Name: ANALILIA MELENDREZ JAMARI Rep #:[id number] : 1960 63 From: Atnony Espitia DO PCP: ALAN Wilde Status:ADM I N Location: [place] [address] HPI Consult Data Date of Consult: 07/03/24 [...] history, including gastrointestinal bleeding or liver disease. [facility] Medical History (Updated 07/03/24 @ 11:34 by [...] reflux #60 tabs 06/27/23 Unknown Rx release aqnvzw-mpjjrfjr-wzvlles 1 cap PO TIDCM #90 caps 06/09 [...] sodium restriction Charges/Coding Visit Charges Inpatient E&M: 27341 Init Hosp L3 07/03/24 1150 <Electronically signed by Antony Espitia DO> Cosigner Signature (if applicable): CC: ALAN Wagner; Dr. Conrado Pro DO~ Signed [facility] Work Phone: 1(757) 342-290705-25-2025 Progress note Author Melonie De La Rosa [facility] Note Date/Time July 02, 2024 11:47 am [facility] Medical Records Department [address] [place] [address] Progress Note - Hospitalist 07/02/24 0712 MR#: [id number] Acct: [id number] Name: ANALILIA MELENDREZ Rep #:[id number] : 1960 63 From: Melonie De La Rosa DO PCP: ALAN Wilde Status:ADM I N Location: [place] [address] Reason for Visit Reason for Visit: Abdominal [...] Had thoracic dissection and was treated at [facility] History of heroin abuse - Remote - patient states he has been clean for approximately 10 years Tobacco abuse - Encouraged cessation - nicotine patch replacement available DVT prophylaxis -Platelet count remains greater than 70,000 -Start enoxaparin 40 daily CODE STATUS - Full code Charges/Coding Visit Charges Inpatient E&M: 79371 Subs Hosp L2 07/02/24 1147 <Electronically signed by Melonie De La Rosa DO> Cosigner Signature (if applicable): CC: ~ Signed [facility] Work Phone: 1(872) 624-945205-24-2025 Progress note Author Melonie De La Rosa [facility] Note Date/Time July 01, 2024 1:59p m [facility] Medical Records Department [address] [place] [address] Progress Note - Hospitalist 07/01/24 0749 MR#: [id number] Acct: [id number] Name: DARRINJANEENANALILIA JAMARI Rep #:[id number] : 1960 63 From: Melonie De La Rosa DO PCP: Marianna Wagner CLAM DREDGER-C Status:ADM I N Location: [place] [address] Reason for Visit Reason for Visit: Abdominal [...] 75.0 H, Lymph % (Auto) 14.4 L, Mcdonough % (Auto) 9.1, Eos % (Auto) 0.3, [...] Alkaline Phosphatase 117, [place] [address] H, Total Protein 5.1 L, Albumin 2.5 L, Globulin 2.6, Lipase 6 L, Ethyl Alcohol < 10.1 06/30/24 16:50: Urine Color Yellow, Urine Clarity Sl. Cloudy, Urine pH 6.0, Ur Specific [place] 1.020, Urine Protein 30 H, Urine Glucose [...] % (Auto) 68.9, Lymph % (Auto) 19.3, Mcdonough % (Auto) 9.8, Eos % (Auto) 1.0, [...] 5. Sequela of chronic pancreatitis. Reading Location: [facility] Chest X-Ray 06/30/24 17:05 IMPRESSION: 1. Moderate bilateral pleural effusions. 2. Linear opacity at the left mid lung zone may represent extension of pleural fluid, atelectasis, or infection. 3. Nodular opacities at the right perihilar region, possibly calcified lymph nodes. Consider CT Chest if patient has risk factors for malignancy. 4. Cardiomegaly. Reading Location: [facility] Physical Exam Const alert, oriented x3, no [...] Had thoracic dissection and was treated at [facility] History of heroin abuse - Remote - patient states he has been clean for approximately 10 years Tobacco abuse - Encouraged cessation - nicotine patch replacement available DVT prophylaxis -Platelet count remains greater than 70,000 -Start enoxaparin 40 daily CODE STATUS - Full code Charges/Coding Visit Charges Inpatient E&M: 34738 Subs Hosp L2 07/01/24 6319 <Electronically signed by Melonie Rj DO> Cosigner Signature (if applicable): CC: ~ Signed [facility] Work Phone: 1(298) 179-413805-24-2025 Procedure [facility] 07-01-2024 History and physical note Author Conrado Fraser [facility] Note Date/Time July 01, 2024 6:46a m [facility] Medical Records Department [address] [place] [address] H&P Exam - Hospitalist 06/30/24 193 MR#: [id number] Acct: [id number] Name: ANALILIA MELENDREZ Rep #:[id number] : 1960 63 From: Conrado Gonzalez DO PCP: VINOD WildeC Status:ADM I N Location: [place] [address] HPI - General General Date of Admission: [...] metformin, diabetic neuropathy; on gabapentin, CAD; s/p NE, history of mechanical aortic valve replacement (2014) followed by bioprosthetic aortic valve replacement (~2016), history of SSS; s/p PPM (2016), history of RBBB, history of NSVT, history of AAA, history of thoracic aortic aneurysm with dissection (~2005 & ~2017 at [facility]), chronic EtOH abuse; with patient admitting [...] furosemide and spironolactone who now re-presents to [facility] ER complaining of SOB, abdominal pain [...] to previousCT on June 22, 2024 with yzgahiag-oa-nymmf volume ascites, unchanged in addition to moderate [...] is expected to extend beyond 2 midnights. [facility] Medical History MALIK (acute kidney injury) Seizures [...] reflux #60 tabs 06/27/23 Unknown Rx release aeggqx-luluuuml-vnpdmlj 1 cap PO TIDCM #90 caps 06/09 [...] 75.0 H, Lymph % (Auto) 14.4 L, Mcdonough % (Auto) 9.1, Eos % (Auto) 0.3, [...] Sl. Cloudy, Urine pH 6.0, Ur Specific [place] 1.020, Urine Protein 30 H, Urine Glucose [...] 5. Sequela of chronic pancreatitis. Reading Location: [facility] Chest X-Ray 06/30/24 17:05 IMPRESSION: 1. Moderate bilateral pleural effusions. 2. Linear opacity at the left mid lung zone may represent extension of pleural fluid, atelectasis, or infection. 3. Nodular opacities at the right perihilar region, possibly calcified lymph nodes. Consider CT Chest if patient has risk factors for malignancy. 4. Cardiomegaly. Reading Location: [facility] Assessment & Plan Assessment/Plan (1) Volume [...] - Resume current regimen. 12. CAD; s/p NE - Stable. 13. History of mechanical aortic valve replacement (2014) followed by bioprosthetic aortic valve replacement (~2016) - Noted. 14. History of SSS; s/p PPM (2016) - Noted. 15. History of RBBB - Noted. 16. History of NSVT - Noted. 17. History of AAA - Stable. 18. History of thoracic aortic aneurysm with dissection (~2005 & ~2017 at [facility]) - Stable. 19. History of MALIK [...] 75 minutes. Charges/Coding Visit Charges Inpatient E&M: 82181 Init Hosp L3 07/01/24 0646 <Electronically signed by Conrado Pro DO> Cosigner Signature (if applicable): CC: CLAM DREDGER-Stephen Wagner; Dr. Conrado Pro DO~ Signed [facility] Work Phone: 1(272) [phone] Discharge summary Author Narendra Gonzalez [facility] Note Date/Time June 30, 2024 11:11 pm [facility] Medical Records Department [address] [place] [address] Emergency Department Summary 06/30/24 MR#: [id number] Acct: [id number] Name: ANALILIA MELENDREZ Rep #:[id number] : 1960 63 From: Narendra Rosado PCP: ALAN Wilde Status:ADM I N Location: [place] [address] HPI HPI - GI History of Present [...] taking all medications that he was [facility]. Later in his ED course after he has had some time to think about it he states that he is not sure if he is taking any diuretics. He states he remembers taking some tramadol that was prescribed but does not recall anything that would make him urinate. [facility] Medical History MALIK (acute kidney injury) Seizures [...] reflux #60 tabs 06/27/23 Unknown Rx release mahmjn-byopvlch-jvgmwcl 1 cap PO TIDCM #90 caps 06/09 [...] 75.0 H Lymph % (Auto) 14.4 L Mcdonough % (Auto) 9.1 Eos % (Auto) 0.3 [...] Sl. Cloudy Urine pH 6.0 Ur Specific Cimarron 1.020 Urine Protein 30 H Urine Glucose [...] 5. Sequela of chronic pancreatitis. Reading Location: [facility] Chest X-Ray 06/30/24 17:05 IMPRESSION: 1. Moderate bilateral pleural effusions. 2. Linear opacity at the left mid lung zone may represent extension of pleural fluid, atelectasis, or infection. 3. Nodular opacities at the right perihilar region, possibly calcified lymph nodes. Consider CT Chest if patient has risk factors for malignancy. 4. Cardiomegaly. Reading Location: [facility] Management Discussion w/another healthcare provider: Hospitalist Discharge Plan Dx/Rx/DC Orders Clinical Impression: Ascites due to alcoholic cirrhosis, Pleural effusion, Hypoxia, Volume overload,MALIK (acute kidney injury) Disposition Disposition: Acute Care Hospital [facility] What to do if you have Problems For any increased pain, shortness of breath, bleeding, nausea or vomiting, chestpain, or any unexpected problems, contact your Primary Care Provider. Call [facility] ([phone]) or report to the closest Emergency Room. Call 911 if necessary. 06/30/24 2311 <Electronically signed by Narendra Gonzalez DO> Cosigner Signature (if applicable): CC: ALAN Wagner ~ Signed [facility] Work Phone: 1(357) 907-552905-23-2025 Radiology Diagnostic study [facility]05-23-2025 Radiology Diagnostic study [facility]05-22-2025 NoteHNO ID: [id number] Author: YESSICA UMANA LPN Service: ? Author Type: LICENSED NURSE Type: Progress Notes Filed: 06/29/2024 09:30 Note Text: TRANSITIONAL CARE MANAGEMENT (TCM) COMMUNITY MONITORING PROGRAM - [facility] Provider Action/FYI: Per pt he needs to cancel appointment for today as he does not have away to the appointment today. Per pt he will call back to reschedule. SUMMARY: Pt discharged from [facility] on 06/28/2024. Admitted for: Ascites due to alcoholic cirrhosis Patient seen Inpatient TONY Visit? N/A. Patient seen ICARE Program? N/A. Contact made with patient: Yes Hi my name is Yessica Umana LPN and I am calling from the [facility] on behalf of your PCP, Marianna Wagner APRN.GAMEWELL OPERATOR I understand you were recently in the [...] like to speak with a social work software team leader to help give you support for any [...] call on the way if possible).[facility]05-22-2025 NotePatient Outreach (AGFAMPLE) ANALILIA MELENDREZ ([id number]) 1960 M Date Time Provider Department 06/29/24 MARIANNA WAGNER During your visit today, we recorded the following information about you: Yessica Umana LPN 06/29/2024 9:30 AM Signed TRANSITIONAL CARE MANAGEMENT (TCM) COMMUNITY MONITORING PROGRAM - [facility] Provider Action/FYI: Per pt he needs to cancel appointment for today as he does not have away to the appointment today. Per pt he will call back to reschedule. SUMMARY: Pt discharged from [facility] on 06/28/2024. Admitted for: Ascites due to alcoholic cirrhosis Patient seen Inpatient TONY Visit? N/A. Patient seen ICARE Program? N/A. Contact made with patient: Yes Hi my name is Yessica Umana LPN and I am calling from the [facility] on behalf of your PCP, Marianna Wagner APRN.GAMEWELL OPERATOR I understand you were recently in the [...] like to speak with a social work software team leader to help give you support for any [...] Reviewed by: (more content not included)...[facility] 06-28-2024 Consult note [facility] Medical Records Department [address] [facility] [place] [address] Anesthesia Postop Eval II 06/27/24 1540 MR#: [id number] Acct: [id number] Name: ANALILIA MELENDREZ Rep #:[id number] : 1960 63 From: Carlos Yanes MD PCP: ALAN Wilde Status:ADM I N Y Race: C Location: [place] [address] 4-1 Anesthesia Postop Eval I Sum Postop [...] No 06/27/24 1540 > Date _ Carlos Yanes MD Cosigner Signature: Date CC: ~ Signed [facility]05-21-2025 Discharge summary Author Melonie De La Rosa [facility] Note Date/Time June 28, 2024 1:27p [facility] Medical Records Department [address] [place] [address] Discharge Summary 06/28/24 1200 MR#: [id number] Acct: [id number] Name: ANALILIA MELENDREZ Rep #:[id number] : 1960 63 From: Melonie De La Rosa DO PCP: ALAN Wilde Status:ADM I N Location: [place] [address] Providers Date of Admission: 06/25/24 Date of Discharge: 06/28/24 Primary Care Physician: ALAN Wilde Consultations 06/26/24 00:39 Consult: Gastroenterology Routine Consulting Provider: [facility] Reason for Consult: Chronic diarrhea with [...] capsule 2 cap PO BID #0 caps 04/11/24 dicyclomine 10 mg capsule 20 mg (2 [...] mg PO BID reflux #60 tabs 06/27/23 goatur-ehigrhvv-dfzeoht 24,000-76,000-120,000 unit capsule,delayed rel (Creon) 1cap PO TIDCM #90 caps 06/28/24 tramadol 50 mg tablet 50 mg PO Q8H PRN pain #9 tabs 06/28/24 Hospital Course Operations None Procedures EGD, EKG, Paracentesis and - (Gallbladder ultrasound/CT abdomen pelvis) Summary of Care Provided Minutes Spent on Discharge: 42 Hospital Course: Mr. Melendrez is a 63-year-old white male who presented to the emergency department at [facility] on 06/26/2023 with a chief complaint of abdominal pain and chronic diarrhea. Patient reported that symptoms began several months prior to admission with chronic diarrhea. He reported he had an outpatient workup to include an EGD and colonoscopy in March 2024 done by at [facility]. This was done for anemia. He reported [...] anemia Thrombocytopenia-chronic Hypokalemia-resolved Hypophosphatemia-resolved Constipation-resolved Lactic acidosis-resolved JY-9-quwvqppmyp CAD Essential hypertension Hyperlipidemia Diabetic neuropathy GERD [...] male, sitting on the edge of bed, skilled nursing facilities professional at bedside, does not appear acutely ill [...] % (Auto) 66.8, Lymph % (Auto) 21.1, Mcdonough % (Auto) 9.9, Eos % (Auto) 0.9, [...] La Rosa Primary Care Provider: Marianna Wagner NP Consulting Providers: Conrado Pro Instructions Additional Instructions / Restrictions: 1. It is very important that you completely stop alcohol as discussed during hospitalization 2. Please take medication below for your pancreatitis as directed and continue all other medications as indicated 3. Please follow-up with Dr. Espitai as noted below to help with your [...] - In 1 Week Marianna Wagner NP, CLAM DREDGER-C [Primary Care Provider] - Within 2 Weeks Disposition Disposition (needs filled in before D/C Order can be placed): Home, Self Care Charges/Coding Visit Charges Inpatient E&M: 77618 Disch Hosp >30min 06/28/24 1327 <Electronically signed by Melonie De La Rosa DO> Cosigner Signature (if applicable): CC: ALAN Wagner; Dr. Melonie De La Rosa, DO; Antony Friend, DO~ Signed [facility] Work Phone: 1(405) 435-531305-21-2025 Discharge summary [facility] Medical Records Department [address] [place] [address] Discharge Summary 06/28/24 1200 MR#: [id number] Acct: [id number] Name: ANALILIA MELENDREZ Rep #:[id number] : 1960 63 From: Melonie De La Rosa DO PCP: ALAN Wilde Status:ADM I N Location: [place] [address] Providers Date of Admission: 06/25/24 Date of Discharge: 06/28/24 Primary Care Physician: ALAN Wilde Consultations 06/26/24 00:39 Consult: Gastroenterology Routine Consulting Provider: [facility] Reason for Consult: Chronic diarrhea with [...] pen (Lantus Solostar U-100 Insulin) 10 unit [id number] DIABETES 11/14/22 metformin 500 mg tablet,extended release [...] mg PO BID reflux #60 tabs 06/27/23 erhuqp-wclkhnln-nnxjkrf 24,000-76,000-120,000 unit capsule,delayed rel (Creon) 1cap PO TIDCM #90 caps 06/28/24 tramadol 50 mg tablet 50 mg PO Q8H PRN pain #9 tabs 06/28/24 Hospital Course Operations None Procedures EGD, EKG, Paracentesis and - (Gallbladder ultrasound/CT abdomen pelvis) Summary of Care Provided Minutes Spent on Discharge: 42 Hospital Course: Mr. Melendrez is a 63-year-old white male who presented to the emergency department at [facility] on 06/26/2023 with a chief complaint of abdominal pain and chronic diarrhea. Patient reported that symptoms began several months prior to admission with chronic diarrhea. He reported he had an outpatient workup to include an EGD and colonoscopy in March 2024 done by at [facility]. This was done for anemia. He reported [...] anemia Thrombocytopenia-chronic Hypokalemia-resolved Hypophosphatemia-resolved Constipation-resolved Lactic acidosis-resolved DI-4-jpendgpmko CAD Essential hypertension Hyperlipidemia Diabetic neuropathy GERD [...] male, sitting on the edge of bed, skilled nursing facilities professional at bedside, does not appear acutely ill [...] % (Auto) 66.8, Lymph % (Auto) 21.1, Mcdonough % (Auto) 9.9, Eos % (Auto) 0.9, [...] La Rosa Primary Care Provider: Marianna Wagner CLAM DREDGER Consulting Providers: Conrado Pro Instructions Additional Instructions [...] - In 1 Week Marianna Wagner NP, CLAM DREDGER-C [Primary Care Provider] - Within 2 Weeks Disposition Disposition (needs filled in before D/C Order can be placed): Home, Self Care Charges/Coding Visit Charges Inpatient E&M: 32334 Disch Hosp >30min 06/28/24 1327 Cosigner Signature (if applicable): CC: CLAM DREDGER-C Marianna Wagner; Dr. Melonie De La Rosa DO; Antony Friend, DO~ Signed [facility]05-21-2025 [facility] Progress note Author Melonie De La Rosa [facility] Note Date/Time June 27, 2024 6:19p m [facility] Medical Records Department [address] [place] [address] Progress Note - Hospitalist 06/27/24 0737 MR#: [id number] Acct: [id number] Name: ANALILIA MELENDREZ Rep #:[id number] : 1960 63 From: Melonie De La Rosa DO PCP: ALAN Wilde Status:ADM I N Location: [place] [address] Reason for Visit Reason for Visit: Abdominal [...] % (Auto) 63.2, Lymph % (Auto) 25.4, Mcdonough % (Auto) 8.9, Eos % (Auto) 1.1, [...] mL of light colored fluid. Reading Location: [facility] Physical Exam Const alert, oriented x3, no apparent distress and average body habitus; Negative for healthy appearing or well nourished Constitutional Narrative: Upper middle-aged, white male, sitting on the edge of bed, skilled nursing facilities professional at bedside, does not appear acutely ill [...] Had thoracic dissection and was treated at [facility] History of heroin abuse - Remote -patient states he has been clean for approximately 10 years Tobacco abuse - Encouraged cessation - nicotine patch replacement available DVT prophylaxis -Platelet count remains greater than 70,000 -Continue Lovenox 40 subcu daily CODE STATUS - Full code Charges/Coding Visit Charges Inpatient E&M: 97971 Subs Hosp L2 06/27/24 0099 <Electronically signed by Melonie De La Rosa DO> Cosigner Signature (if applicable): CC: ~ Signed [facility] Work Phone: 1(806) 505-500505-20-2025 Progress note [facility] Medical Records Department [address] [place] [address] Progress Note - Hospitalist 06/27/24 0737 MR#: [id number] Acct: [id number] Name: ANALILIA MELENDREZ Rep #:[id number] : 1960 63 From: Melonie De La Rosa DO PCP: Marianna Wagner, CLAM DREDGER-C Status:ADM I N Location: [place] [address] Reason for Visit Reason for Visit: Abdominal [...] 0.23, AST 49 H, ALT 27, Alkaline [id number], Total Protein 4.2 L, Albumin 2.0 L, [...] % (Auto) 63.2, Lymph % (Auto) 25.4, Mcdonough % (Auto) 8.9, Eos % (Auto) 1.1, [...] 06:00 IMPRESSION: Successful paracentesis with removal of 0 mL of light colored fluid. Reading Location: [facility] Physical Exam Const alert, oriented x3, no apparent distress and average body habitus; Negative for healthy appearing or well nourished Constitutional Narrative: Upper middle-aged, white male, sitting on the edge of bed, skilled nursing facilities professional at bedside, does not appear acutely ill [...] Had thoracic dissection and was treated at [facility] History of heroin abuse - Remote -patient states he has been clean for approximately 10 years Tobacco abuse - Encouraged cessation - nicotine patch replacement available DVT prophylaxis -Platelet count remains greater than 70,000 -Continue Lovenox 40 subcu daily CODE STATUS - Full code Charges/Coding Visit Charges Inpatient E&M: 81761 Subs Hosp L2 06/27/24 1819 Cosigner Signature (if applicable): CC: ~ Signed [facility]05-20-2025 Consult note Author Carlos Yanes [facility] Note Date/Time June 28, 2024 3:08p m [facility] Medical Records Department [address] [place] [address] Anesthesia Postop Eval II 06/27/24 1540 MR#: [id number] Acct: [id number] Name: ANALILIA MELENDREZ Rep #:[id number] : 1960 63 From: Carlos Yanes MD PCP: ALAN Wilde Status:ADM I N Y Race: C Location: [place] [address]4340 4-1 Anesthesia Postop Eval I Sum Postop [...] Level: 0 nausea: No Vomiting: No 06/27/24 8006 <Electronically signed by Carlos Yanes MD > Date _ Carlos Yanes MD Cosigner Signature: Date CC: ~ Signed [facility] Work Phone: 1(784) 708-607005-20-2025 Consult note Author Wilma Ribeiro [facility] Note Date/Time June 27, 2024 3:17p [facility] Medical Records Department [address] [place] [address] Anesthesia Postop Eval I 06/27/24 1516 MR#: [id number] Acct: [id number] Name: ANALILIA MELENDREZ Rep #:[id number] : 1960 63 From: Wilma Ribeiro PCP: ALAN Wilde Status:ADM I N Y Race: C Location: [place] [address] Anesthesia: Postop Eval I Current Vital Signs [...] document: Postop Eval 1 completed: Yes 06/27/24 6101 <Electronically signed by Wilma Ribeiro > Date _ Wilma Ribeiro Cosigner Signature: Date CC: ~ Signed [facility] Work Phone: 1(624) 563-286005-20-2025 Consult note Author Carlos [facility] Note Date/Time June 27, 2024 2:53p [facility] Medical Records Department [address] [place] [address] Pre-Anesthesia Evaluation 06/27/24 1452 MR#: [id number] Acct: [id number] Name: ANALILIA MELENDREZ JAMARI Rep #:[id number] : 1960 63 From: Carlos Yanes MD PCP: ALAN Wilde Status:ADM I N Y Race: C Location: [place] [address] 05-09 ASA Classification* ASA Classification ASA Classification: 3 [...] 06/27/24 TSH 1.740 uIU/mL (0.300-4.200) 06/26/24 05:25 0511/02 COAG PT 17.4 SECONDS (11.7-14.9) H 06/27/24 05:00 06/09 Pre-Assessment Diagnosis/Proposed Procedure Planned Operative Procedure(s): EGD 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 - sustainable design consultant: 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 - sustainable design consultant Hx Hospitalization No 05/09/20 19:26 Any Problems [...] take am of surgery PONV PONV - sustainable design consultant: PONV - sustainable design consultant Female HX of Motion Sickness HX of N/V After Surgery Non-Smoker Duration of Surgery greater than 60 minutes Number of Risk Factors PONV Score Height & Weight Height & Weight: Anesthesia: Height & Weight Height 5 ft 11 in 06/26/24 22:53 Weight: 75.2 kg 06/27/24 05:39 Body Mass Index (BMI) 23.2 06/27/24 05:39 Respiratory Assessment Respiratory Assessment - sustainable design consultant: Respiratory Tract Infection Hx - sustainable design consultant Hx Respiratory Tract Infection No 06/26/24 22:53 STOP Sleep Apnea STOP Sleep Apnea - sustainable design consultant: STOP Sleep Apnea - sustainable design consultant Hx Hypertension Yes 06/26/24 00:18 Hx Sleep [...] Tobacco Use History Tobacco Use History - sustainable design consultant: Tobacco Use History - sustainable design consultant Tobacco Use Smoking Status Current every day smoker 06/26/24 03:49 Hx Tobacco Use Yes 06/26/24 00:18 Years Smoking Packs Smoked per Day Smoking Cessation Date was within the last 15 years Hx Smoking Cessation Date Hx Smoking Cessation No 06/26/24 00:18 Counseling Hematologic Medial History Hematologic Hx - sustainable design consultant: Hematologic Medical Hx - filler feeder Hx of Blood Transfusion No 06/26/24 00:18 [...] confused, unrespo /Reproduction History /Reproductive History - sustainable design consultant: /Reproductive Hx- sustainable design consultant Hx Now No 06/26/24 22:53 Gestational Age [...] Glycerin/Hypromellose/Polyethylene 2 drp 06/26/24 21:37 06/27/24 12:22 Glycerin/Hypromellose/Eqx666 15 Ml Bottle EACH EYE 2 drp Q1H PRN Administration DRY EYES Hydralazine HCl 5 mg 06/26/24 00:39 Hydralazine 20 Mg/Ml Vial IV Q8H PRN PRN SBP GREATER THAN 160 Protocol Hydralazine HCl 25 mg 06/26/24 14:00 06/27/24 05:04 Hydralazine 25 Mg Tablet PO Not Given TID [facility] Protocol Dextrose 250 mls @ 0 mls/hr 06/26/24 00:39 Dextrose 10%-Water IV .Q0M PRN HYPOGLYCEMIA Protocol As Directed Sodium Chloride 250 mls @ 15 mls/hr 06/26/24 06:11 IV .[id number] PRN Saline Flush Sodium Chloride 250 mls @ 15 mls/hr 06/26/24 06:11 IV .[id number] PRN Additional IVPB Infusion Lactated Ringer's 1,000 mls @ 15 mls/hr 06/27/24 14:15 06/27/24 14:26 IV 15 mls/hr .Q48H KUNAL Administration Insulin Glargine 5 unit 06/26/24 12:00 06/27/24 12:21 Insulin Glargine-Yfgn 100 Unit/Ml Pen SC Not Given 1200 [facility] Insulin Human Lispro 0 unit 06/26/24 00:39 06/27/24 12:20 Insulin Lispro 100 Unit/Ml Insuln.Pen SC Not Given Q6 [facility] Protocol Lorazepam 0.5 mg 06/26/24 00:39 Lorazepam 2 Mg/Ml [facility] Syringe IV Q4H PRN PRN AGITATION Melatonin 6 mg 06/26/24 22:22 06/26/24 22:52 Melatonin 3 Mg Tablet PO 6 mg QHS PRN PRN Administration SLEEP Metoprolol Succinate 25 mg 06/26/24 10:00 06/27/24 08:19 Metoprolol(Xl)Succ 25 Mg Tablet PO Not Given BID [facility] Protocol Morphine Sulfate 2 mg 06/26/24 00:39 06/26/24 01:59 Morphine 2 Mg/Ml Syringe IV 2 mg Q4H PRN PRN Administration Pain Score 6-10 Multivitamins 1 tablet 06/26/24 08:00 06/27/24 08:16 Multivitamins,Therapeutic Tablet [facility] Nicotine 14 mg 06/26/24 00:39 06/27/24 08:18 Nicotine 14 Mg Patch TD 14 mg DAILY [facility] Administration Ondansetron HCl 4 mg 06/26/24 00:39 Ondansetron 4 Mg/2 Ml Vial IV Q8H PRN PRN NAUSEA/VOMITING Pancrelipase 1 cap 06/27/24 08:00 06/27/24 12:20 Creon 24,[address] Capsule PO Not Given TIDCM [facility] Pantoprazole Sodium 40 mg 06/26/24 22:00 06/27/24 08:19 Pantoprazole Sodium 40 Mg Tablet PO Not Given BID [facility] Polyethylene Glycol 17 gm 06/26/24 12:45 06/27/24 08:18 Polyethylene Glycol 3350 17 Gm Packet PO Not Given BID [facility] Promethazine HCl 25 mg 06/26/24 00:39 Promethazine [...] 25 Mg Tablet PO Not Given DAILY [facility] Protocol Thiamine HCl 100 mg 06/26/24 08:00 06/27/24 08:17 Thiamine Hydrochloride 100 Mg Tablet [facility] History MALIK (acute kidney injury) Seizures [...] no additional complaints, except as documented. 06/27/24 7928 <Electronically signed by Carlos Yanes MD > Date _ Carlos Yanes MD Cosigner Signature: Date CC: ~ Signed [facility] Work Phone: 1(845) 132-355405-20-2025 Progress note Author Antony Friend [facility] Note Date/Time June 27, 2024 2:46p m [facility] Medical Records Department [address] [place] [address] Progress Note 06/27/24 1444 MR#: [id number] Acct: [id number] Name: ANALILIA MELENDREZ Rep #:[id number] : 1960 63 From: Antony Espitia DO PCP: Marianna Wagner, CLAM DREDGER-C Status:ADM I N Location: [place] [address] Progress Note Patient is for upper endoscopy [...] ASA of 3. Visit Charges Inpatient E&M: 58716 Subs Hosp L3 06/27/24 1446 <Electronically signed by Antony Espitia DO> Antony Espinosa Signature (if applicable): CC: ~ Signed [facility] Work Phone: 1([phone]) 155-211405-20-2025 Consult note [facility] Medical Records Department [address] [facility] [place] [address] Anesthesia Postop Eval I 06/27/241515 MR#: [id number] Acct: [id number] Name: ANALILIA MELENDREZ Rep #:[id number] : 1960 63 From: Wilma Ribeiro PCP: ALAN Wilde Status:ADM I N Y Race: C Location: [place] [address] Anesthesia: Postop Eval I Current Vital Signs [...] document: Postop Eval 1 completed: Yes 06/27/241516 > Date _ Wilma Lyman Signature: Date CC: ~ Signed [facility]05-20-2025 Procedure note [facility] Medical Records Department [address] [facility] [place] [address] EGD Report MR#: [id number] Acct: [id number] Name: ANALILIA MELENDREZ Rep #:[id number] : 1960 63 From: Antony Espitia DO PCP: Marianna Wagner NP-C Status:ADM I N Patient Name: Analilia Melendrez [...] pathology results. Procedure Code(s): --- Professional --- 19633, Small intestinal endoscopy, enteroscopy beyond second portion of duodenum, not including ileum; with biopsy, single or multiple CPT copyright 2021 [employer]. All rights reserved. The codes documented in this report are preliminary and upon lead simulation modeling engineer review may be revised to meet current compliance requirements. Antony Espitia DO 06/27/2024 3:14:55 PM This report has been signed electronically. Number of Addenda: 0 Note Initiated On: 06/27/2024 2:47 PM 06/27/24 1515 Date _ Antony Espitia DO Cosigner Signature: Date (if indicated) CC: ALAN Espitia DO ~ Date Dictated: 06/27/24 1447 Date Transcribed: Radiographer Angiogram: KRISTEN Signed [facility]05-20-2025 Procedure note [facility] Medical Records Department [address] [place] [address] Operative Report - CC Letter MR#: [id number] Acct: [id number] Name: ANALILIA MELENDREZ Rep #:[id number] : 1960 63 From: Antony Espitia DO PCP: ALAN Wilde Status:ADM I N 06/27/2024 Alan Wilde Re : Upper GI endoscopy procedure for Analilia Melendrez Dear Fátima This procedure was performed on Thursday, June [...] to contact me at . Sincerely, Antony Espitia DO 06/27/2024 3:14:55 PM This report has been signed electronically. 06/27/245 Date _ Antony Espitia DO Cosigner Signature: Date (if indicated) CC: ALAN Wagner; Dr. Rolan Romero ; Dr. Conrado Pro DO; Dr. Melonie De La Rosa DO ~ Date Dictated: 06/27/24 1447 Date Transcribed: Radiographer Angiogram: RF Signed [facility]05-20-2025 Consult note [facility] Medical Records Department [address] [place] [address] Pre-Anesthesia Evaluation 06/27/24 1452 MR#: [id number] Acct: [id number] Name: ANALILIA MELENDREZ Rep #:[id number] : 1960 63 From: Carlos Yanes MD PCP: Marianna Wagner CLAM DREDGER-Stephen Status:ADM I N Y Race: C Location: [place] [address] ASA Classification* ASA Classification ASA Classification: 3 [...] Procedure(s): EGD 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 - sustainable design consultant: 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 - sustainable design consultant Hx Hospitalization No 05/09/20 19:26 Any Problems [...] take am of surgery PONV PONV - sustainable design consultant: PONV - sustainable design consultant Female HX of Motion Sickness HX of N/V After Surgery Non-Smoker Duration of Surgery greater than 60 minutes Number of Risk Factors PONV Score Height & Weight Height & Weight: Anesthesia: Height & Weight Height 5 ft 11 in 06/26/24 22:53 Weight: 75.2 kg 06/27/24 05:39 Body Mass Index (BMI) 23.2 06/27/24 05:39 Respiratory Assessment Respiratory Assessment - sustainable design consultant: Respiratory Tract Infection Hx - sustainable design consultant Hx Respiratory Tract Infection No 06/26/24 22:53 STOP Sleep Apnea STOP Sleep Apnea - sustainable design consultant: STOP Sleep Apnea - sustainable design consultant Hx Hypertension Yes 06/26/24 00:18 Hx Sleep [...] Tobacco Use History Tobacco Use History - sustainable design consultant: Tobacco Use History - sustainable design consultant Tobacco Use Smoking Status Current every day smoker 06/26/24 03:49 Hx Tobacco Use Yes 06/26/24 00:18 Years Smoking Packs Smoked per Day Smoking Cessation Date was within the last 15 years Hx Smoking Cessation Date Hx Smoking Cessation No 06/26/24 00:18 Counseling Hematologic Medial History Hematologic Hx - sustainable design consultant: Hematologic Medical Hx - filler feeder Hx of Blood Transfusion No 06/26/24 00:18 [...] confused, unrespo /Reproduction History /Reproductive History - sustainable design consultant: /Reproductive Hx- sustainable design consultant Hx Now No 06/26/24 22:53 Gestational Age [...] Glycerin/Hypromellose/Polyethylene 2 drp 06/26/24 21:37 06/27/24 12:22 Glycerin/Hypromellose/For022 15 Ml Bottle EACH EYE 2 drp [...] mls @ 15 mls/hr 06/26/24 06:11 IV .[id number] PRN Saline Flush Sodium Chloride 250 mls @ 15 mls/hr 06/26/24 06:11 IV .[id number] PRN Additional IVPB Infusion Lactated Ringer's 1,000 mls @ 15 mls/hr 06/27/24 14:15 06/27/24 14:26 IV 15 mls/hr .Q48H KUNAL Administration Insulin Glargine 5 unit 06/26/24 12:00 06/27/24 12:21 Insulin Glargine-Yfgn 100 Unit/Ml Pen SC Not Given 1200 [facility] Insulin Human Lispro 0 unit 06/26/24 00:39 06/27/24 12:20 Insulin Lispro 100 Unit/Ml Insuln.Pen SC Not Given Q6 [facility] Protocol Lorazepam 0.5 mg 06/26/24 00:39 Lorazepam 2 Mg/Ml [facility]ch Syringe IV Q4H PRN PRN AGITATION Melatonin 6 mg 06/26/24 22:22 06/26/24 22:52 Melatonin 3 Mg Tablet PO 6 mg QHS PRN PRN Administration SLEEP Metoprolol Succinate 25 mg 06/26/24 10:00 06/27/24 08:19 Metoprolol(Xl)Succ 25 Mg Tablet PO Not Given BID [facility] Protocol Morphine Sulfate 2 mg 06/26/24 00:39 06/26/24 01:59 Morphine 2 Mg/Ml Syringe IV 2 mg Q4H PRN PRN Administration Pain Score 6-10 Multivitamins 1 tablet 06/26/24 08:00 06/27/24 08:16 Multivitamins,Therapeutic Tablet [facility] Nicotine 14 mg 06/26/24 00:39 06/27/24 08:18 Nicotine 14 Mg Patch TD 14 mg DAILY [facility] Administration Ondansetron HCl 4 mg 06/26/24 00:39 Ondansetron 4 Mg/2 Ml Vial IV Q8H PRN PRN NAUSEA/VOMITING Pancrelipase 1 cap 06/27/24 08:00 06/27/24 12:20 Creon 24,[address] Capsule PO Not Given TIDCM [facility] Pantoprazole Sodium 40 mg 06/26/24 22:00 06/27/24 08:19 Pantoprazole Sodium 40 Mg Tablet PO Not Given BID [facility] Polyethylene Glycol 17 gm 06/26/24 12:45 06/27/24 08:18 Polyethylene Glycol 3350 17 Gm Packet PO Not Given BID [facility] Promethazine HCl 25 mg 06/26/24 00:39 Promethazine [...] 25 Mg Tablet PO Not Given DAILY [facility] Protocol Thiamine HCl 100 mg 06/26/24 08:00 06/27/24 08:17 Thiamine Hydrochloride 100 Mg Tablet PO [facility] Medical History MALIK (acute kidney injury) Seizures [...] documented. 06/27/24 1453 > Date _ Carlos Lyman Signature: Date CC: ~ Signed [facility]05-20-2025 Progress note [facility] Medical Records Department [address] [place] [address] Progress Note 06/27/24 1444 MR#: [id number] Acct: [id number] Name: ANALILIA MELENDREZ JAMARI Rep #:[id number] : 1960 63 From: Antony Friend DO PCP: Marianna Wagner NP-C Status:ADM I N Location: [place] [address] Progress Note Patient is for upper endoscopy [...] ASA of 3. Visit Charges Inpatient E&M: 94417 Subs Hosp L3 06/27/24 7926 Antony Friend DO Esmer Signature (if applicable): CC: ~ Signed [facility]05-19-2025 Progress note Author Melonie De La Rosa [facility] Note Date/Time June 26, 2024 7:44p [facility] Medical Records Department [address] [place] [address] Progress Note - Hospitalist 06/26/24 0734 MR#: [id number] Acct: [id number] Name: ANALILIA MELENDREZ Rep #:[id number] : 1960 63 From: Melonie De La Rosa DO PCP: ALAN Wilde Status:ADM I N Location: [place] [address] Reason for Visit Reason for Visit: Abdominal [...] % (Auto) Cancelled, Lymph % (Auto) Cancelled, Mcdonough % (Auto) Cancelled, Eos % (Auto) Cancelled, [...] Drop Cells Cancelled, Ovalocytes Cancelled, Stomatocytes Cancelled, [place] Bodies Cancelled, Thayer Cells Cancelled, Bite Cells Cancelled, Crenated Cell [...] % (Auto) 65.3, Lymph % (Auto) 22.1, Mcdonough % (Auto) 11.6 H, Eos % (Auto) [...] Clarity Clear, Urine pH 7.0, Ur Specific [place] 1.010, Urine Protein 15 H, Urine Glucose [...] (Auto) 68.4, Lymph % (Auto) 18.4 L, Mcdonough % (Auto) 11.8 H, Eos % (Auto) [...] Had thoracic dissection and was treated at [facility] History of heroin abuse - Remote -patient states he has been clean for approximately 10 years Tobacco abuse - Encouraged cessation - nicotine patch replacement available DVT prophylaxis - Platelet count is 100,000 - Start Lovenox 40 subcu daily CODE STATUS - Full code Charges/Coding Visit Charges Inpatient E&M: 12060 Subs Hosp L2 06/26/241943 <Electronically signed by Melonie De La Rosa DO> Cosigner Signature (if applicable): CC: ~ Signed [facility] Work Phone: 1(886) 685-550105-19-2025 Consult note Author Antony Espitia [facility] Note Date/Time June 26, 2024 6:15p m [facility] Medical Records Department [address] [place] [address] Consultation - GI 06/26/248 MR#: [id number] Acct: [id number] Name: ANALILIA MELENDREZ Rep #:[id number] : 1960 63 From: Antony Espitia DO PCP: Marianna Wagner, CLAM DREDGER-C Status:ADM I N Location: [place] [address] HPI Consult Data Date of Consult: 06/26/24 [...] a SAG gradient could not be calculated. [facility] Medical History MALIK (acute kidney injury) Seizures [...] % (Auto) 65.3, Lymph % (Auto) 22.1, Mcdonough % (Auto) 11.6 H, Eos % (Auto) [...] Clarity Clear, Urine pH 7.0, Ur Specific [place] 1.010, Urine Protein 15 H, Urine Glucose [...] (Auto) 68.4, Lymph % (Auto) 18.4 L, Mcdonough % (Auto) 11.8 H, Eos % (Auto) [...] chance of developing HCC. Reading Location: [facility] Paracentesis Ultrasound 06/26/24 06:00 IMPRESSION: Successful paracentesis with removal of 2050 mL of light colored fluid. [facility] Assessment & Plan Assessment/Plan (1) Chronic alcohol [...] this year done by Dr. Vazquez at [facility] for indication of iron deficiency anemia, [...] IV morphine in ER. 12. CAD; s/p NE - Noted. 13. History of mechanical aortic [...] aneurysm with dissection (~2005 & ~2017 at [facility]) - Noted. 19. History of alcoholic [...] 75 minutes. Charges/Coding Visit Charges Inpatient E&M: 74756 Init Hosp L3 06/26/241814 <Electronically signed by Antony Friend DO> Cosigner Signature (if applicable): CC: ALAN Wagner; Dr. Rolan Romero DO~ Signed [facility] Work Phone: 1(711) 731-217205-19-2025 Progress note [facility] Medical Records Department [address] [place] [address] Progress Note - Hospitalist 06/26/24 0734 MR#: [id number] Acct: [id number] Name: ANALILIA MELENDREZ Rep #:[id number] : 1960 63 From: Melonie De La Rosa DO PCP: ALAN Wilde Status:ADM I N Location: [place] [address] Reason for Visit Reason for Visit: Abdominal [...] % (Auto) Cancelled, Lymph % (Auto) Cancelled, Mcdonough % (Auto) Cancelled, Eos % (Auto) Cancelled, [...] Drop Cells Cancelled, Ovalocytes Cancelled, Stomatocytes Cancelled, [place] Bodies Cancelled, Kristofer Cells Cancelled, Bite Cells [...] % (Auto) 65.3, Lymph % (Auto) 22.1, Mcdonough % (Auto) 11.6 H, Eos % (Auto) [...] Clarity Clear, Urine pH 7.0, Ur Specific [place] 1.010, Urine Protein 15 H, Urine Glucose [...] (Auto) 68.4, Lymph % (Auto) 18.4 L, Mcdonough % (Auto) 11.8 H, Eos % (Auto) [...] lower chance of developing HCC. Reading Location: [facility] Physical Exam Const alert, oriented x3, no [...] Had thoracic dissection and was treated at [facility] History of heroin abuse - Remote -patient states he has been clean for approximately 10 years Tobacco abuse - Encouraged cessation - nicotine patch replacement available DVT prophylaxis - Platelet count is 100,000 - Start Lovenox 40 subcu daily CODE STATUS - Full code Charges/Coding Visit Charges Inpatient E&M: 73180 [facility] Hosp L2 06/26/241943 Cosigner Signature (if applicable): CC: ~ Signed [facility]05-19-2025 Consult note [facility] Medical Records Department [address] [place] [address] Consultation - GI 06/26/24 1758 MR#: [id number] Acct: [id number] Name: ANALILIA MELENDREZ Rep #:[id number] : 1960 63 From: Antony Friend DO PCP: ALAN Wilde Status:ADM I N Location: [place] [address] HPI Consult Data Date of Consult: 06/26/24 [...] a SAG gradient could not be calculated. [facility] Medical History MALIK (acute kidney injury) Seizures [...] % (Auto) 65.3, Lymph % (Auto) 22.1, Mcdonough % (Auto) 11.6 H, Eos % (Auto) [...] Clarity Clear, Urine pH 7.0, Ur Specific [place] 1.010, Urine Protein 15 H, Urine Glucose [...] (Auto) 68.4, Lymph % (Auto) 18.4 L, Mcdonough % (Auto) 11.8 H, Eos % (Auto) [...] chance of developing HCC. Reading Location: [facility] Paracentesis Ultrasound 06/26/24 06:00 IMPRESSION: Successful paracentesis with removal of 2050 mL of light colored fluid. Reading Location: [facility] Assessment & Plan Assessment/Plan (1) Chronic [...] this year done by Dr. Vazquez at [facility] for indication of iron deficiency anemia, [...] IV morphine in ER. 12. CAD; s/p NE - Noted. 13. History of mechanical aortic [...] aneurysm with dissection (~2005 & ~2016 at [facility]) - Noted. 19. History of alcoholic [...] 75 minutes. Charges/Coding Visit Charges Inpatient E&M: 43995 Init Hosp 06/26/24 1815 Cosigner Signature (if applicable): CC: CLAM DREDGER-C Marianna Wagner; Dr. Rolan Romero, ~ Signed [facility]05-19-2025 Radiology Diagnostic study note [facility] Imaging Services [address] [place] [address] Paracentesis with US MR#: [id number] Acct: [id number] Name: ANALILIA MELENDREZ Rep #: [id number] : 1960 M 63 From: Francis Campos MD PCP: ALAN Wilde Status: ADM I N Study:Paracentesis with US Date of Exam: 06/26/24 Exam# [id number] Ordering Dr: Conrado Geronimo DO PROCEDURE: PARACENTESIS WITH US 06/26/2024 REASON FOR EXAM: LARGE ABDOMINAL PELVIC ASCITES W/ CHRONIC ETOH ABU TECHNIQUE: Paracentesis. The procedure as well as the benefits and possible complications including infection were explained to the patient. Informed consent was obtained. The overlying skin was prepped and draped in the usual sterile fashion. Following local anesthetic application, a 5 Belgian catheter was placed into the abdomen. 2050 mL of light colored fluid was aspirated. A sample was sent to the laboratory. COMPARISON: None FINDINGS: Successful paracentesis US/Paracentesis with US IMPRESSION: Successful paracentesis with removal of 2050 mL of light colored fluid. Reading Location: [facility] CC: ALAN Wagner; Dr. Conrado Pro DO ~ Radiographer Angiogram: Signed [facility]05-19-2025 Telephone encounter Note* Telephone Encounter - Marianna Wagner APRN.CNP - 06/26/2024 9:57 AM EDT Will address in next OV. [facility]05-19-2025 Miscellaneous Notes* Telephone Encounter - Marianna Wagner [...] Alc. Andrew Ponce MA documented in this encounterKindred Healthcare05-19-2025 History and physical note Author Conrado Fraser [facility] Note Date/Time June 26, 2024 6:34a m [facility] Medical Records Department [address] [place] [address] H&P Exam - Hospitalist 06/25/242128 MR#: [id number] Acct: [id number] Name: ANALILIA MELENDREZ Rep #:[id number] : 1960 63 From: Conrado Gonzalez DO PCP: ALAN Wilde Status:ADM I N Location: [place] [address] HPI - General General Date of Admission: [...] metformin, diabetic neuropathy; on gabapentin, CAD; s/p NE, history of mechanical aortic valve replacement (2014) followed by bioprosthetic aortic valve replacement (~2016), history of SSS; s/p PPM (2016), history of RBBB, history of NSVT, history of AAA, history of thoracic aortic aneurysm with dissection (~2005 & ~2016 at [facility]), chronic EtOHabuse; with patient admitting to ~2-3 forty ounce beers daily on supplemental thiamine and folate, history of alcoholic hepatitis, history of chronic pancreatitis, history of seizures; likely due to EtOH withdrawal, history of MALIK, GERD with hiatal hernia; on pantoprazole twice daily, history of hernia; s/p repair and generalized anxiety who presents to [facility] ERcomplaining of abdominal pain, chronic diarrhea and chronic alcohol abuse. Mr. Melendrez reports his symptoms began several months prior to admission with chronic diarrhea which includes an outpatient workup including EGD and colonoscopy in March of this year done by Dr. Vazquez at [facility] for indication of iron deficiency anemia, [...] is expected to extend beyond 2 midnights. [facility] Medical History MALIK (acute kidney injury) Seizures [...] % (Auto) Cancelled, Lymph % (Auto) Cancelled, Mcdonough % (Auto) Cancelled, Eos % (Auto) Cancelled, [...] Drop Cells Cancelled, Ovalocytes Cancelled, Stomatocytes Cancelled, [place] Bodies Cancelled, Kristofer Cells Cancelled, Bite Cells [...] % (Auto) 65.3, Lymph % (Auto) 22.1, Mcdonough % (Auto) 11.6 H, Eos % (Auto) [...] Clarity Clear, Urine pH 7.0, Ur Specific [place] 1.010, Urine Protein 15 H, Urine Glucose [...] this year done by Dr. Vazquez at [facility] for indication of iron deficiency anemia, [...] IV morphine in ER. 12. CAD; s/p NE - Noted. 13. History of mechanical aortic valve replacement (2014) followed by bioprosthetic aortic valve replacement (~2016) - Stable. 14. History of SSS; s/p PPM (2016) - Noted. 15. History of RBBB - Noted. 16. History of NSVT - Noted with no signs of recurrence at this time. 17. History of AAA - Noted. 18. History of thoracic aortic aneurysm with dissection (~2005 & ~2017 at [facility]) - Noted. 19. History of alcoholic [...] 75 minutes. Charges/Coding Visit Charges Inpatient E&M: 78643 Init Hosp L3 06/26/24 0634 <Electronically signed by Conrado Pro DO> Cosigner Signature (if applicable): CC: CLAM DREDGER-C Marianna Wagner; Dr. Conrado Pro DO~ Signed [facility] Work Phone: 1(826) 961-845105-19-2025 Telephone encounter Note* Telephone Encounter - Suzi Haynes MA - 06/26/2024 7:16 AM EDT Patient is currently admitted, would you like us to put a new reminder in. Please advise. Suzi Haynes MA [facility]05-19-2025 Telephone encounter Note* Telephone Encounter - Suzi Haynes MA - 06/26/2024 7:16 AM EDT ----- Message from Andrew Horowitz MA sent at 03/28/2024 8:14 AM EST ----- Remind pt. Time to recheck Alc. Andrew Ponce MA [facility]05-19-2025 History and physical note [facility] Medical Records Department [address] [place] [address] H&P Exam - Hospitalist 06/25/241 MR#: [id number] Acct: [id number] Name: ANALILIA MELENDREZ Rep #:[id number] : 1960 63 From: Conrado Gonzalez DO PCP: ALAN Wilde Status:ADM I N Location: [place] [address] HPI - General General Date of Admission: 06/25/24 Date of Service: 06/25/24 Chief Complaint: Abdominal Pain, Chronic Diarrhea and Chronic EtOH Abuse. HPI Narrative ANALILIA ZIMMERLY, is a 63 M with a past [...] metformin, diabetic neuropathy; on gabapentin, CAD; s/p NE, history of mechanical aortic valve replacement (2014) followed by bioprosthetic aortic valve replacement (~2016), history of SSS; s/p PPM (2016), history of RBBB, history of NSVT, history of AAA, history of thoracic aortic aneurysm with dissection (~2005 & ~2016 at [facility]), chronic EtOHabuse; with patient admittingto ~2-3 forty ounce beers daily on supplemental thiamine and folate, history of alcoholic hepatitis, history of chronic pancreatitis, history of seizures; likely due to EtOH withdrawal, history of MALIK , GERD with hiatal hernia; on pantoprazole twice daily, history of hernia; s/p repair and generalized anxiety who presents to [facility] ERcomplaining of abdominal pain, chronic diarrhea and chronic alcohol abuse. Mr. Melendrez reports his symptoms began several months prior to admission with chronic diarrhea which includes an outpatient workup including EGD and colonoscopy in March of this year done by Dr. Vazquez at [facility] for indication of iron deficiency anemia, [...] is expected to extend beyond 2 midnights. [facility] Medical History MALIK (acute kidney injury) Seizures [...] % (Auto) Cancelled, Lymph % (Auto) Cancelled, Mcdonough % (Auto) Cancelled, Eos % (Auto) Cancelled, [...] Drop Cells Cancelled, Ovalocytes Cancelled, Stomatocytes Cancelled, [place] Bodies Cancelled, Thayer Cells Cancelled, Bite Cells Cancelled, Crenated Cell [...] % (Auto) 65.3, Lymph % (Auto) 22.1, Mcdonough % (Auto) 11.6 H, Eos % (Auto) [...] 0.46, AST 62 H, ALT 32, Alkaline [id number], Total Protein 5.0 L, Albumin 2.5 L, Globulin 2.5, Albumin/Globulin Ratio 1.0, Lipase 6L, b-Hydroxybutyric mmol/L 0.1 06/25/24 19:17: POC Glucose 348 H 06/25/24 19:23: Urine Color Yellow, Urine Clarity Clear, Urine pH 7.0, Ur Specific [place] 1.010, Urine Protein 15 H, Urine Glucose [...] this year done by Dr. Vazquez at [facility] for indication of iron deficiency anemia, [...] IV morphine in ER. 12. CAD; s/p NE - Noted. 13. History of mechanical aortic [...] aneurysm with dissection (~2005 & ~2016 at [facility]) - Noted. 19. History of alcoholic [...] 75 minutes. Charges/Coding Visit Charges Inpatient E&M: 39569 Init Hosp 06/26/24 0634 Cosigner Signature (if applicable): CC: CLAM DREDGER-C Marianna Wagner; Dr. Conrado Pro, DO~ Signed [facility]05-19-2025 Discharge summary Author Rolan Romero [facility] Note Date/Time June 25, 2024 11:17 pm [facility] Medical Records Department [address] [place] [address] Emergency Department Summary 06/25/24 MR#: [id number] Acct: [id number] Name: ANALILIA MELENDREZ Rep #:[id number] : 1960 63 From: Rolan stock DO PCP: ALAN Wilde Status:ADM I N Location: [place] [address]- 1 HPI History of Present Illness Chief Complaint: [...] intact Psych: Cooperative, appropriate mood and affect [facility] Medical History MALIK (acute kidney injury) Seizures [...] had a EGD and colonoscopy done at [facility]. Will Clinisync for these results. Differential [...] % (Auto) Cancelled Lymph % (Auto) Cancelled Mcdonough % (Auto) Cancelled Eos % (Auto) Cancelled [...] Drop Cells Cancelled Ovalocytes Cancelled Stomatocytes Cancelled Wh[place] Bodies Cancelled Kristofer Cells Cancelled Bite Cells [...] Color Urine Clarity Urine pH Ur Specific [place] Urine Protein Urine Glucose (UA) Urine Ketones [...] % (Auto) 65.3 Lymph % (Auto) 22.1 Mcdonough % (Auto) 11.6 H Eos % (Auto) [...] Target Cells Tear Drop Cells Ovalocytes Stomatocytes [place] Bodies Kristofer Cells Bite Cells Crenated Cell [...] Color Urine Clarity Urine pH Ur Specific [place] Urine Protein Urine Glucose (UA) Urine Ketones [...] (Auto) Neut % (Auto) Lymph % (Auto) Mcdonough % (Auto) Eos % (Auto) Baso % [...] Target Cells Tear Drop Cells Ovalocytes Stomatocytes [place] Bodies Thayer Cells Bite Cells Crenated Cell Acanthocytes (Spur) Rouleaux Schistocytes Sodium Potassium Chloride Carbon Dioxide Anion Gap BUN Creatinine Estim Creat Clear Calc Est GFR (MDRD) Non-Af BUN/Creatinine Ratio Glucose Lactic Acid Calcium Magnesium Total Bilirubin AST ALT Alkaline Phosphatase Total Protein Albumin Globulin Albumin/Globulin Ratio Lipase b-Hydroxybutyric mmol/L Urine Color Yellow Urine Clarity Clear Urine pH 7.0 Ur Specific [place] 1.010 Urine Protein 15 H Urine Glucose [...] Provider: Marianna Wagner NP Referrals: Marianna Wagner CLAM DREDGER, CLAM DREDGER-C [Primary Care Provider] - Print Language: Botswanan What to do if you have Problems For any increased pain, shortness of breath, bleeding, nausea or vomiting, chestpain, or any unexpected problems, contact your Primary Care Provider. Call [facility] ([phone]) or report to the closest Emergency Room. Call 911 if necessary. 06/25/242316 <Electronically signed by Rolan Romero DO> Cosigner Signature (if applicable): CC: CLAM DREDGERAstrid Wagner ~ Signed [facility] Work Phone: 1(838) 105-211705-19-2025 Evaluation note* Diagnosis Onset Date Resolution Status [...] Chronic pancreatitis chronic June 25, 2024 10:15pm [facility] Work Phone: 1(979) 152-398805-19-2025 Evaluation note* Diagnosis Onset Date Resolution Status [...] June 30 7:47pm Medically noncompliant acute Ma 2024 7:47pm Pancytopenia acute June 30 7:47pm Pleural effusion acute June 7:47pm Respiratory insufficiency acute June 30, 2024 7:47pm Volume overload acute June 30, 2024 7:47pm Ascites due to alcoholic cirrhosis inactive June 30, 2024 7 :47pm Chronic pancreatitis inactive June 30, 2024 7:47pm Thrombocytopenia inactive June 7:47pm [facility] Work Phone: 1(635) 769-145305-19-2025 Evaluation note* Diagnosis Onset Date Resolution Status [...] 2024 2:06pm Suicidal ideation acute July 2:06pm [facility] Work Phone: 1(431) 434-513905-19-2025 Evaluation note* Diagnosis Onset Date Resolution Status [...] 2024 2:06pm Suicidal ideation acute July 2:06pm [facility] Work Phone: 1(952) 919-249605-19-2025 Evaluation note* Diagnosis Onset Date Resolution Status [...] June 30 7:47pm Medically noncompliant inactive Florentino y 2024 7:47pm Pancytopenia inactive June 30 7:47pm Thrombocytopenia inactive June 7:47pm Abdominal pain resolved July 11, 2024 2:06pm Headache resolved July 11, 2024 2:06pm Nausea resolved July 11, 2024 2:06pm Nausea & vomiting resolved July 2:06pm Partial bowel obstruction resolved July 11, 2024 2:06pm Suicidal ideation resolved July 2:06pm [facility] Work Phone: 1(195) 132-643405-19-2025 Evaluation note* Diagnosis Onset Date Resolution Status [...] 8:44pm History of aortic aneurysm repair ac [place] August 01, 2024 8:44pm Hypoxia acute August 01 8:44pm Elevated troponin resolved August 012024 8:44pm [facility] Work Phone: [phone]) 895-461205-19-2025 Evaluation note* Diagnosis Onset Date Resolution Status [...] 10:15pm Thrombocytopenia inactive June 10:15pm Abdominal ascites resolved June 7:47pm Acute HFrEF (heart failure w ith reduced ejection fraction) resolved June 092024 7:47pm MALIK (acute kidney injury) resolved June [...] (heart failure w ith reduced ejection fraction) resolved August 01, 2024 8:44pm Elevated troponin resolved August 012024 8:44pm Hypoxia resolved August 01 8:44pm H/O aortic valve replacement inactiv e August 01, 2024 8:44pm History of aortic aneurysm repair in active August 01, 2024 8:44pm History of diabetes mellitus acute August 29, 2024 12:38am Medically noncompliant acute Ju ly 2024 12:38am Pleural effusion acute August 12:38am Pleural effusion associated with hepatic disorder acute August 29, 2024 12:38am [facility] Work Phone: 1([phone]) 527-309705-18-2025 Discharge summary [facility] Medical Records Department [address] [place] [address] Emergency Department Summary 06/25/24 MR#: [id number] Acct: [id number] Name: ANALILIA MELENDREZ Rep #:[id number] : 1960 63 From: Rolan stock DO PCP: Marianna Wagner CLAM DREDGER-C Status:ADM I N Location: [place] [address] HPI History of Present Illness Chief Complaint: [...] intact Psych: Cooperative, appropriate mood and affect [facility] Medical History MALIK (acute kidney injury) Seizures [...] had a EGD and colonoscopy done at [facility]. Will Clinisync for these results. Differential [...] % (Auto) Cancelled Lymph % (Auto) Cancelled Mcdonough % (Auto) Cancelled Eos % (Auto) Cancelled [...] Drop Cells Cancelled Ovalocytes Cancelled Stomatocytes Cancelled [place] Bodies Cancelled Kristofer Cells Cancelled Bite Cells [...] Color Urine Clarity Urine pH Ur Specific [place] Urine Protein Urine Glucose (UA) Urine Ketones [...] % (Auto) 65.3 Lymph % (Auto) 22.1 Mcdonough % (Auto) 11.6 H Eos % (Auto) [...] Target Cells Tear Drop Cells Ovalocytes Stomatocytes [place] Bodies Thayer Cells Bite Cells Crenated Cell Acanthocytes (Spur) [...] Color Urine Clarity Urine pH Ur Specific [place] Urine Protein Urine Glucose (UA) Urine Ketones [...] (Auto) Neut % (Auto) Lymph % (Auto) Mcdonough % (Auto) Eos % (Auto) Baso % [...] Target Cells Tear Drop Cells Ovalocytes Stomatocytes [place] Bodies Thayer Cells Bite Cells Crenated Cell Acanthocytes (Spur) Rouleaux Schistocytes Sodium Potassium Chloride Carbon Dioxide Anion Gap BUN Creatinine Estim Creat Clear Calc Est GFR (MDRD) Non-Af BUN/Creatinine Ratio Glucose Lactic Acid Calcium Magnesium Total Bilirubin AST ALT Alkaline Phosphatase Total Protein Albumin Globulin Albumin/Globulin Ratio Lipase b-Hydroxybutyric mmol/L Urine Color Yellow Urine Clarity Clear Urine pH 7.0 Ur Specific [place] 1.010 Urine Protein 15 H Urine Glucose [...] Provider: Marianna Wagner NP Referrals: Marianna Wagner CLAM DREDGER, CLAM DREDGER-C [Primary Care Provider] - Print Language: B[place]an What to do if you have Problems For any increased pain, shortness of breath, bleeding, nausea or vomiting, chestpain, or any unexpected problems, contact your Primary Care Provider. Call [facility] ([phone]) or report tothe closest Emergency Room. Call 911 if necessary. 06/25/24 2317 Cosigner Signature (if applicable): CC: CLAM DREDGER-Stephen Wagner ~ Signed [facility]05-18-2025 Radiology Diagnostic study note [facility] [address] [place], [place] [address] Abdomen/Pelvis W IV Cont ONLY MR#: [id number] Acct: [id number] Name: DARRINJANEENANALILIAHERMANN KAUFFMAN Rep #: [id number] : 1960 M 63 From: Lawanda Bernstein MD PCP: Marianna Wagner, CLAM DREDGER-C Status: REG E R Study:Abdomen/Pelvis W IV Cont ONLY Date of E xam: 06/25/24 Exam# [id number] Ordering Dr: Rolan De Souza DO PROCEDURE: [...] lower chance of developing HCC. Reading Location: [facility] CC: CLAM DREDGER-C Marianna Wagner; Dr. Rolan Romero DO ~ Radiographer Angiogram: Signed [facility]05-18-2025 Discharge summary Author Rolan Romero [facility] Note Date/Time June 25, 2024 11:17 pm [facility] Medical Records Department [address] [place] [address] Emergency Department Summary 06/25/24 MR#: [id number] Acct: [id number] Name: ANALILIA MELENDREZ Rep #:[id number] : 1960 63 From: Rolan stock DO PCP: ALAN Wilde Status:ADM I N Location: [place] [address] HPI History of Present Illness Chief Complaint: [...] intact Psych: Cooperative, appropriate mood and affect [facility] Medical History MALIK (acute kidney injury) Seizures [...] had a EGD and colonoscopy done at [facility]. Will Clinisync for these results. Differential [...] % (Auto) Cancelled Lymph % (Auto) Cancelled Mcdonough % (Auto) Cancelled Eos % (Auto) Cancelled [...] Drop Cells Cancelled Ovalocytes Cancelled Stomatocytes Cancelled [place] Bodies Cancelled Kristofer Cells Cancelled Bite Cells [...] Color Urine Clarity Urine pH Ur Specific [place] Urine Protein Urine Glucose (UA) Urine Ketones [...] % (Auto) 65.3 Lymph % (Auto) 22.1 Mcdonough % (Auto) 11.6 H Eos % (Auto) [...] Target Cells Tear Drop Cells Ovalocytes Stomatocytes [place] Bodies Kristofer Cells Bite Cells Crenated Cell [...] Color Urine Clarity Urine pH Ur Specific [place] Urine Protein Urine Glucose (UA) Urine Ketones [...] (Auto) Neut % (Auto) Lymph % (Auto) Mcdonough % (Auto) Eos % (Auto) Baso % [...] Target Cells Tear Drop Cells Ovalocytes Stomatocytes [place] Bodies Thayer Cells Bite Cells Crenated Cell Acanthocytes (Spur) Rouleaux Schistocytes Sodium Potassium Chloride Carbon Dioxide Anion Gap BUN Creatinine Estim Creat Clear Calc Est GFR (MDRD) Non-Af BUN/Creatinine Ratio Glucose Lactic Acid Calcium Magnesium Total Bilirubin AST ALT Alkaline Phosphatase Total Protein Albumin Globulin Albumin/Globulin Ratio Lipase b-Hydroxybutyric mmol/L Urine Color Yellow Urine Clarity Clear Urine pH 7.0 Ur Specific [place] 1.010 Urine Protein 15 H Urine Glucose [...] Provider: Marianna Wagner NP Referrals: Marianna Wagner CLAM DREDGER, CLAM DREDGER-C [Primary Care Provider] - Print Language: [place]an What to do if you have Problems For any increased pain, shortness of breath, bleeding, nausea or vomiting, chestpain, or any unexpected problems, contact your Primary Care Provider. Call [facility] ([phone]) or report to the closest Emergency Room. Call 911 if necessary. 06/25/24 3832 <Electronically signed by Rolan Romero DO> Cosigner Signature (if applicable): CC: ALAN Wagner ~ Signed [facility] Work Phone: [phone]) 843-629405-14-2025 Telephone encounter Note* Telephone Encounter - Andrew Ponce MA - 06/21/2024 2:32 PM EDT Pt. Cristo on stating awhile back you put him on antibiotics for a UTI and he would like a refill. Please advise. Andrew Ponce MA [facility]05-14-2025 Miscellaneous Notes* Telephone Encounter - Andrew Ponce MA - 06/21/2024 2:32 PM EDT Pt. Cristo on stating awhile back you put him on antibiotics for a UTI and he would like a refill. Please advise. Andrew Ponce MA [facility]04-[facility] Telephone encounter Note * Telephone Encounter - Suzi Haynes MA - 05/29/2024 9:06 AM EDT pharmacy electronically requesting refills as follows: Last seen 12/27/23 . Last refill metoprolol 04/10/24, pantoprazole 02/21/24 . Requested Prescriptions Pending Prescriptions Disp Refills metoprolol tartrate, short acting, (LOPRESSOR) 50 mg tablet [Pharmacy Med Name: METOPROLOL [id number] TABS] 60 tablet 0 Sig: TAKE ONE TABLET BY MOUTH TWICE A DAY pantoprazole DR (PROTONIX) 40 mg tablet [Pharmacy Med Name: PANTOPRAZOLE SODIUM 40MG TBEC] 60 tablet 2 Sig: TAKE ONE TABLET BY MOUTH TWICE A DAY 3O MINUTES BEFORE MEAL Please review and advise. Suzi Haynes MA [facility]04-21-2025 Miscellaneous Notes* Telephone Encounter - Suzi Haynes MA - 05/29/2024 9:06 AM EDT pharmacy electronically requesting refills as follows: Last seen 12/27/23 . Last refill metoprolol 04/10/24, pantoprazole 02/21/24 . Requested Prescriptions Pending Prescriptions Disp Refills metoprolol tartrate, short acting, (LOPRESSOR) 50 mg tablet [Pharmacy Med Name: METOPROLOL [id number] TABS] 60 tablet 0 Sig: TAKE ONE TABLET BY MOUTH TWICE A DAY pantoprazole DR (PROTONIX) 40 mg tablet [Pharmacy Med Name: PANTOPRAZOLE SODIUM 40MG TBEC] 60 tablet 2 Sig: TAKE ONE TABLET BY MOUTH TWICE A DAY 3O MINUTES BEFORE MEAL Please review and advise. Suzi Haynes MA documented in this [facility]04-07-2025 Telephone encounter Note * Telephone Encounter - Andrew Ponce MA - 05/15/2024 8:01 AM EDT pharm requesting refills: Last office visit 12/27/2023. Last refill 04/10/2024 nov none Requested Prescriptions Pending Prescriptions Disp Refills ramipril (ALTACE) 10 mg capsule [Pharmacy Med Name: RAMIPRIL 10MG CAPS] 30 capsule 0 Sig: TAKE ONE CAPSULE BY MOUTH EVERY DAY Please review and advise. Andrew Ponce MA [facility]04-07-2025 Miscellaneous Notes* Telephone Encounter - Andrew Ponce MA - 05/15/2024 8:01 AM EDT pharm requesting refills: Last office visit 12/27/2023. Last refill 04/10/2024 nov none Requested Prescriptions Pending Prescriptions Disp Refills ramipril (ALTACE) 10 mg capsule [Pharmacy Med Name: RAMIPRIL 10MG CAPS] 30 capsule 0 Sig: TAKE ONE CAPSULE BY MOUTH EVERY DAY Please review and advise. 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 He denies other symptoms patient would like to know if he needs a med change Giulia Rogel MA documented in this encounter[facility]red [facility]03-05-2025 NoteHNO ID: [id number] Author: VANDANA EDWARDS, ? Service: ? Author [...] uses NSAIDs. Occasional reflux. He was in [facility] for 6 weeks in june for rehab [...] nonobstructive Chronic kidney disease, stage III (moderate) ([facility]) Clostridioides difficile infection Coronary artery disease Depression Diabetes mellitus, type II (HCC) Insulin dependent History of alcohol abuse Hx of ascending aorta repair Hyperlipidemia Hypertension Non-ST elevation NE (NSTEMI) ([facility]) 06/24 Pacemaker Paroxysmal atrial fibrillation (HCC) RBBB (right bundle branch block) S/P aortic valve replacement [facility] mechanical Syncope Tachy-fernando syndrome (HCC) Tobacco abuse chronic Tobacco user Type 2 diabetes mellitus (HCC) PAST SURGICAL HISTORY Procedure Laterality Date ABD AORTIC ANEURYSM REPAIR ASCENDING AORTA GRAFT W/AORTIC ROOT COLONOSCOPY SCREENING In [place] COLONOSCOPY SCREENING 04/05/2024 Internal hemorrhoids, poor prep [...] BY MOUTH EVERY DAY 90 tablet 1 zjnews-zkjrpnll-wbmkles (CREON 36) 36,000-114,000- 180,000 unit delayed release capsule Take 2 pills by mouth with first bite of meal and take 1 pill with snacks. Max 10 per day. 300 capsule 3 Cholecalciferol, Vitamin D3, (VITAMIN D-3) 50 mcg (2,000 unit) cap Take 1 capsule by mouth once daily. 90 capsule (more content not included)...[facility]03-05-2025 History of Present illness Narrative* Vandana Edwards [...] uses NSAIDs. Occasional reflux. He was in intermediate for 6 weeks in june for rehab [...] ascending aorta repair Hyperlipidemia Hypertension Non-ST elevation NE (NSTEMI) (HCC) 06/24 Pacemaker Paroxysmal atrial fibrillation (HCC) RBBB (right bundle branch block) S/P aortic valve replacement [facility] [facility] mechanical Syncope Tachy-fernando syndrome (HCC) Tobacco abuse chronic Tobacco user Type 2 diabetes mellitus (HCC) PAST SURGICAL HISTORY Procedure Laterality Date ABD AORTIC ANEURYSM REPAIR ASCENDING AORTA GRAFT W/AORTIC ROOT COLONOSCOPY SCREENING In [place] COLONOSCOPY SCREENING 04/05/2024 Internal hemorrhoids, poor prep [...] BY MOUTH EVERY DAY 90 tablet 1 ogmuif-nvvnbvmg-yhmmiek (CREON 36) 36,000-114,000- 180,000 unit delayed release [...] 4 Blood-Glucose Meter,Continuous (FREESTYLE MANGO 3 READER) misc [...] or concerns in the meantime. Vandana Edwards APRN.GAMEWELL OPERATOR I spent a total of 30 minutes on the date of the service which included preparing to see the patient, dcok-ql-zzwg patient care, completing clinical documentation, counseling and [...] evaluation of this patient. documented in this encounterKindred Healthcare03-03-2025 Telephone encounter Note * Telephone Encounter - [...] 50 mg tablet [Pharmacy Med Name: METOPROLOL [id number]] 60 tablet 0 Sig: TAKE ONE TABLET BY MOUTH TWICE A DAY ramipril (ALTACE) 10 mg capsule [Pharmacy Med Name: RAMIPRIL 10MG CAPS] 30 capsule 0 Sig: TAKE ONE CAPSULE BY MOUTH EVERY DAY Please review and advise. Suzi Haynes MA [facility]03-03-2025 Miscellaneous Notes* Telephone Encounter - Suzi Haynes [...] 50 mg tablet [Pharmacy Med Name: METOPROLOL [id number] [id number]] 60 tablet 0 Sig: TAKE ONE TABLET BY MOUTH TWICE A DAY ramipril (ALTACE) 10 mg capsule [Pharmacy Med Name: RAMIPRIL 10MG CAPS] 30 capsule 0 Sig: TAKE ONE CAPSULE BY MOUTH EVERY DAY Please review and advise. Suzi Haynes MA documented in this encounterKindred Healthcare02-26-2025 Attending History and physical note* Phoebe Vazquez MD - 04/05/2024 2:15 PM EST UPDATED HISTORY AND PHYSICAL EXAMINATION SERVICE DATE: 04/05/2024 SERVICE TIME: 12:15 Participation of a fellow, resident, medical student, or advanced practice provider student in performing the sensitive examination was discussed with the patient or authorized sales and service representative. The patient or authorized sales and service representative has agreed to proceed with the sensitive [...] [facility] / Outside records reviewed. Latest Ref [facility] 10/15/2023 WBC 3.70 - 11.00 k/uL 4.67 [...] Abs Lymph 1.00 - 4.00 k/uL 1.82 Mcdonough% % 11.0 Abs Mcdonough <0.87 k/uL 0.51 Eosin% % 0.0 Abs [...] ascending aorta repair Hyperlipidemia Hypertension Non-ST elevation NE (NSTEMI) (HCC) 06/24 Pacemaker Paroxysmal atrial fibrillation (HCC) RBBB (right bundle branch block) S/P aortic valve replacement [facility] [facility] mechanical Syncope Tachy-fernando syndrome (HCC) Tobacco abuse chronic Tobacco user Type 2 diabetes mellitus (HCC) PAST SURGICAL HISTORY PAST SURGICAL HISTORY Procedure Laterality Date ABD AORTIC ANEURYSM REPAIR ASCENDING AORTA GRAFT W/AORTIC ROOT COLONOSCOPY SCREENING In [place] CORONARY ARTERY BYPASS GRAFT HX 2016 2005 HEART CATHETERIZATION 06/24/2016 HEART VALVE REPLACEMENT 2017 Aortic x2 ;2015 HERNIA REPAIR HX PACEMAKER 06/25/2016 REPLACEMENT AORTIC VALVE W BYPASS Allergies: ALLERGIES ALLERGIES No Known Allergies Medications: CURRENT MEDICATIONS Insulin Carson, Disposable, (BD ULTRA-FINE NORBERTO PEN NEEDLE) 32 [...] daily. Blood-Glucose Meter,Continuous (FREESTYLE MANGO 3 READER) [facility] Use to check blood sugar at least [...] meals and 1 pill with snacks - jgvwzn-svbjnmdi-bhnzzkb (CREON 36) 36,000-114,000- 180,000 unit delayed release [...] the patient has no further questions. . [facility] Work Phone: 1(763) 190-617302-26-2025 History and physical note* Phoebe Vazquez MD [...] Abs Lymph 1.00 - 4.00 k/uL 1.82 Mcdonough% % 11.0 Abs Mcdonough <0.87 k/uL 0.51 Eosin% % 0.0 Abs [...] ascending aorta repair Hyperlipidemia Hypertension Non-ST elevation NE (NSTEMI) (HCC) 06/24 Pacemaker Paroxysmal atrial fibrillation (HCC) RBBB (right bundle branch block) S/P aortic valve replacement [facility] [facility] mechanical Syncope Tachy-fernando syndrome (HCC) Tobacco abuse chronic Tobacco user Type 2 diabetes mellitus (HCC) PAST SURGICAL HISTORY PAST SURGICAL HISTORY Procedure Laterality Date ABD AORTIC ANEURYSM REPAIR ASCENDING AORTA GRAFT W/AORTIC ROOT COLONOSCOPY SCREENING In [place] CORONARY ARTERY BYPASS GRAFT HX 2016 2005 HEART CATHETERIZATION 06/24/2016 HEART VALVE REPLACEMENT 2017 Aortic x2 ;2014 HERNIA REPAIR HX PACEMAKER 06/25/2016 REPLACEMENT AORTIC VALVE W BYPASS Allergies: ALLERGIES ALLERGIES No Known Allergies Medications: CURRENT MEDICATIONS Insulin Carson, Disposable, (BD ULTRA-FINE NORBERTO PEN NEEDLE) 32 gauge x 1 Each three times a day. metFORMIN (GLUCOPHAGE) 500 mg tablet Take 1 tablet by mouth daily with breakfast. Cholecalciferol, Vitamin D3, (VITAMIN D-3) 50 mcg (2,000 unit) cap Take 1 capsule by mouth once daily. ferrous sulfate 325 mg (65 mg iron) tablet Take 1 tablet by mouth once daily. Blood-Glucose Meter,Continuous (FREESTYLE MANGO 3 READER) [facility] Use to check blood sugar at least [...] meals and 1 pill with snacks - rgfnsj-lkivqpep-cewbnmy (CREON 36) 36,000-114,000- 180,000 unit delayed release [...] the patient has no further questions. . [facility]02-26-[facility]25 History and physical note* Phoebe Vazquez MD - 04/05/2024 2:15 PM EST UPDATED HISTORY AND PHYSICAL EXAMINATION SERVICE DATE: 04/05/2024 SERVICE TIME: 12:15 Participation of a fellow, resident, medical student, or advanced practice provider student in performing the sensitive examination was discussed with the patient or authorized sales and service representative. The patient or authorized sales and service representative has agreed to proceed with the sensitive [...] Abs Lymph 1.00 - 4.00 k/uL 1.82 Mcdonough% % 11.0 Abs Mcdonough <0.87 k/uL 0.51 Eosin% % 0.0 Abs [...] ascending aorta repair Hyperlipidemia Hypertension Non-ST elevation NE (NSTEMI) (HCC) 06/24 Pacemaker Paroxysmal atrial fibrillation (HCC) RBBB (right bundle branch block) S/P aortic valve replacement [facility] [facility] mechanical Syncope Tachy-fernando syndrome (HCC) Tobacco abuse chronic Tobacco user Type 2 diabetes mellitus (HCC) PAST SURGICAL HISTORY PAST SURGICAL HISTORY Procedure Laterality Date ABD AORTIC ANEURYSM REPAIR ASCENDING AORTA GRAFT W/AORTIC ROOT COLONOSCOPY SCREENING In [place] CORONARY ARTERY BYPASS GRAFT HX 2016 2005 HEART CATHETERIZATION 06/24/2016 HEART VALVE REPLACEMENT 2017 Aortic x2 ;2014 HERNIA REPAIR HX PACEMAKER 06/25/2016 REPLACEMENT AORTIC VALVE W BYPASS Allergies: ALLERGIES ALLERGIES No Known Allergies Medications: CURRENT MEDICATIONS Insulin Carson, Disposable, (BD ULTRA-FINE NORBERTO PEN NEEDLE) 32 gauge x 1 Each three times a day. metFORMIN (GLUCOPHAGE) 500 mg tablet Take 1 tablet by mouth daily with breakfast. Cholecalciferol, Vitamin D3, (VITAMIN D-3) 50 mcg (2,000 unit) cap Take 1 capsule by mouth once daily. ferrous sulfate 325 mg (65 mg iron) tablet Take 1 tablet by mouth once daily. Blood-Glucose Meter,Continuous (FREESTYLE MANGO 3 READER) [facility] Use to check blood sugar at least [...] meals and 1 pill with snacks - kcjhxk-tgjlfwhe-udckbgw (CREON 36) 36,000-114,000- 180,000 unit delayed release [...] Abs Lymph 1.00 - 4.00 k/uL 1.82 Mcdonough% % 11.0 Abs Mcdonough <0.87 k/uL 0.51 Eosin% % 0.0 Abs [...] ascending aorta repair Hyperlipidemia Hypertension Non-ST elevation NE (NSTEMI) (HCC) 06/24 Pacemaker Paroxysmal atrial fibrillation (HCC) RBBB (right bundle branch block) S/P aortic valve replacement [facility] [facility] mechanical Syncope Tachy-fernando syndrome (HCC) Tobacco abuse chronic Tobacco user Type 2 diabetes mellitus (HCC) PAST SURGICAL HISTORY PAST SURGICAL HISTORY Procedure Laterality Date ABD AORTIC ANEURYSM REPAIR ASCENDING AORTA GRAFT W/AORTIC ROOT COLONOSCOPY SCREENING In [place] CORONARY ARTERY BYPASS GRAFT HX 2016 2005 HEART CATHETERIZATION 06/24/2016 HEART VALVE REPLACEMENT 2017 Aortic x2 ;2014 HERNIA REPAIR HX PACEMAKER 06/25/2016 REPLACEMENT AORTIC VALVE W BYPASS Allergies: ALLERGIES ALLERGIES No Known Allergies Medications: CURRENT MEDICATIONS Insulin Carson, Disposable, (BD ULTRA-FINE NORBERTO PEN NEEDLE) 32 [...] daily. Blood-Glucose Meter,Continuous (FREESTYLE MANGO 3 READER) mis Use to check blood sugar at least [...] meals and 1 pill with snacks - vbpqit-quknbazp-gphwbrf (CREON 36) 36,000-114,000- 180,000 unit delayed release [...] no further questions. . documented in this encounterKindred Healthcare02-26-2025 History of Present illness Narrative* Marta Rosado, Practice Lead - 04/05/2024 2:15 PM ESTSummary: Pacemaker Check Pacemaker checked with [employer] and data transmitted. Spoke to rep who [facility] Floor notified. documented in this encounterKindred Healthcare02-26-2025 NoteHNO ID: [id number] Author: MARTA ROSADO Practice Lead Service: Clinical Cardiology Author Type: Practice Lead Type: Progress Notes Filed: 04/05/2024 11:41 Note Text: Summary: Pacemaker Check Pacemaker checked with [employer] and data transmitted. Spoke to rep who will fax report directly to the floor. [id number] Telephone encounter Note* Telephone Encounter - Sigrid Arias RN - 03/31/2024 8:47 AM EST Patient called in and left message, would like to speak to someone regarding medication and prep prior to procedure next week. Attempted callback, no answer, LVM with CB number to office [facility]02-21-2025 Miscellaneous Notes* Telephone Encounter - Sigrid Arias RN - 03/31/2024 8:47 AM EST Patient called in and left message, would like to speak to someone regarding medication and prep prior to procedure next week. Attempted callback, no answer, LVM with CB number to office documented in this encounterKindred Healthcare02-19-2025 Telephone encounter Note * Telephone Encounter - Tiara Foote - 03/29/2024 1:40 PM EST I called and spoke to Analilia who did not realize he had these appointments scheduled today, he rescheduled for 04/12/24 @ 9:45 am lab work and 10:00 am appointment Tiara Severino [facility]02-19-2025 Miscellaneous Notes* Telephone Encounter - Tiara Foote - 03/29/2024 1:40 PM EST I called and spoke to Analilia who did not realize he had these appointments scheduled today, he rescheduled for 04/12/24 @ 9:45 am lab work and 10:00 am appointment Tiara Severino * Telephone Encounter - Vandana Edwards - 03/29/2024 1:08 PM EST Patient was No Show for todays (03/29/2024) appointment. Can we make sure he is rescheduled for labs and OV sometime the first week in april after he has his scopes ? Thank you, Vandana Edwards APRN.GAMEWELL OPERATOR documented in this encounterKindred Healthcare02-19-2025 Telephone encounter Note * Telephone Encounter - Vandana Edwards - 03/29/2024 1:08 PM EST Patient was No Show for todays (03/29/2024) appointment. Can we make sure he is rescheduled for labs and OV sometime the first week in april after he has his scopes ? Thank you, Vandana Edwards APRN.CNP [facility] Work Phone: [phone] 218-272402-18-2025 Telephone encounter Note* Telephone Encounter - Andrew Ponce MA - 03/28/2024 8:03 AM EST Patient notified . Reminder placed. Andrew Ponce MA [facility]02-18-2025 Miscellaneous Notes* Telephone Encounter - Andrew Ponce [...] Recheck in 3 months. documented in this encounterKindred Healthcare02-17-2025 Telephone encounter Note * Telephone Encounter - Marianna Wagner APRN.CNP - 03/27/2024 2:48 PM EST A1C increased to 7.6. Will need to increase his daily Glargine insulin to 15 units daily. I am also going to change him to Metformin XR at 1,000 mg daily. Rx sent in. Recheck in 3 months. [facility]02-14-2025 Telephone encounter Note* Telephone Encounter - Jenifer Varela - 03/24/2024 11:17 AM EST Thank You Austin! [facility]02-14-2025 Miscellaneous Notes* Telephone Encounter - Jenifer Varela - 03/24/2024 11:17 AM EST Thank You Austin! * Telephone Encounter - Morenita Manuel RN - 03/24/2024 9:26 AM EST Patient call. EGD/ Colonoscopy with Dr Vazquez 04/05/24. Has questions regarding his prep. Would like a call. Thanks [phone] (home) [phone] (cell) documented in this encounterKindred Healthcare02-14-2025 Telephone encounter Note * Telephone Encounter - Morenita Manuel RN - 03/24/2024 9:26 AM EST Patient call. EGD/ Colonoscopy with Dr Vazquez 04/05/24. Has questions regarding his prep. Would like a call. Thanks [phone] (home) [phone] (cell) [facility]02-14-2025 Telephone encounter Note* Telephone Encounter - Brandy [...] NAME: Analilia Melendrez DATE: March 24, 2024 [facility] Work Phone: [phone]) [phone] Miscellaneous Notes* Telephone Encounter - Brandy Motta [...] DATE: March 24, 2024 documented in this encounterKindred Healthcare02-04-2025 Telephone encounter Note * Telephone Encounter - Emmy Dillon MA - 03/14/2024 3:51 PM EST Spoke with patient about prep instructions. He had to cancel his appointment at [facility] and they will call him tomorrow with a reschedule at [facility]. [facility]02-04-2025 Miscellaneous Notes* Telephone Encounter - Emmy Dillon MA - 03/14/2024 3:51 PM EST Spoke with patient about prep instructions. He had to cancel his appointment at [facility] and they will call him tomorrow with a reschedule at [facility]. * Telephone Encounter - Emmy Dillon [...] advise. Suzi Haynes MA documented in this encounterKindred Healthcare02-04-2025 Telephone encounter Note * Telephone Encounter - Emmy Dillon MA - 03/14/2024 2:39 PM EST Called home phone number on file and another gentleman answered the phone and said Analilia was not at home. Will again before leaving today. [facility]02-04-2025 Telephone encounter Note* Telephone Encounter - Suzi Haynes MA - 03/14/2024 11:27 AM EST Patient left another message requesting call back regarding prep. Suzi Haynes MA [facility]02-03-2025 Telephone encounter Note* Telephone Encounter - Suzi Haynes MA - 03/13/2024 10:32 AM EST Patient left message stating he scheduled for some procedures on 03/16/24 but does not know when to start the prep. Please advise. Suzi Haynes MA [facility]01-29-2025 Telephone encounter Note* Telephone Encounter - Andrew Ponce MA - 03/08/2024 11:21 AM EST Lm on pt. Vm with all information Andrew Ponce MA [facility]01-29-2025 Miscellaneous Notes* Telephone Encounter - Andrew Ponce [...] advise. Suzi Haynes MA documented in this encounterKindred Healthcare01-29-2025 Telephone encounter Note * Telephone Encounter - Ramy Delgadillo DO - 03/08/2024 11:17 AM EST Pt is due for blood work - order attached Ramy Delgadillo DO [facility]01-29-2025 Telephone encounter Note* Telephone Encounter - Suzi [...] Please review and advise. Suzi Haynes MA [facility]01-13-2025 Telephone encounter Note* Telephone Encounter - Giulia Rogel MA - 02/21/2024 4:34 PM EST Patient called and left a message stating that his appointment was canceled and that they can't do anything for him. He states his bowels are still bothering him Giulia Rogel MA [facility]01-13-2025 Miscellaneous Notes* Telephone Encounter - Giulia Rogel MA - 02/21/2024 4:34 PM EST Patient called and left a message stating that his appointment was canceled and that they can't do anything for him. He states his bowels are still bothering him Giulia Rogel MA documented in this encounterKindred Healthcare01-13-2025 Telephone encounter Note * Telephone Encounter - [...] Please review and advise. Suzi Haynes MA [facility]01-13-2025 Miscellaneous Notes* Telephone Encounter - Suzi Haynes [...] advise. Suzi Haynes MA documented in this encounterKindred Healthcare01-13-2025 Telephone encounter Note * Telephone Encounter - [...] Please review and advise. Suzi Haynes MA [facility]01-13-2025 Miscellaneous Notes* Telephone Encounter - Suzi Haynes [...] advise. Suzi Haynes MA documented in this encounterKindred Healthcare01-08-2025 Telephone encounter Note * Telephone Encounter - Suzi Haynes MA - 02/16/2024 7:19 AM EST ----- Message from Andrew Horowitz MA sent at 08/16/2023 2:21 PM EDT ----- Remind pt. Time to recheck A1C. Andrew Ponce MA [facility]01-08-2025 Miscellaneous Notes* Telephone Encounter - Suzi Haynes MA - 02/16/2024 7:19 AM EST ----- Message from Andrew Horowitz MA sent at 08/16/2023 2:21 PM EDT ----- Remind pt. Time to recheck A1C. Andrew Ponce MA documented in this encounterKindred Healthcare12-31-2024 Telephone encounter Note * Telephone Encounter - Andrew Ponce MA - 02/08/2024 11:38 AM EST Patient requesting refills: Last office visit 12/27/2023. Last refill 08/10/2023 . Requested Prescriptions Pending Prescriptions Disp Refills FARXIGA 10 mg tablet Sig: Take 1 tablet by mouth daily with breakfast. Please review and advise. Andrew Ponce MA [facility]12-31-2024 Miscellaneous Notes* Telephone Encounter - Andrew Ponce MA - 02/08/2024 11:38 AM EST Patient requesting refills: Last office visit 12/27/2023. Last refill 08/10/2023 . Requested Prescriptions Pending Prescriptions Disp Refills FARXIGA 10 mg tablet Sig: Take 1 tablet by mouth daily with breakfast. Please review and advise. Andrew Ponce MA documented in this encounterKindred Healthcare12-12-2024 Telephone encounter Note * Telephone Encounter - [...] Please review and advise. Andrew Ponce MA [facility]12-12-2024 Miscellaneous Notes* Telephone Encounter - Andrew Ponce [...] advise. Andrew Ponce MA documented in this encounterKindred Healthcare12-11-2024 Telephone encounter Note * Telephone Encounter - Cristela Batres - 01/19/2024 12:04 PM EST Done [facility]12-11-2024 Miscellaneous Notes* Telephone Encounter - Cristela Batres [...] todays apointment Radha Anand documented in this encounterKindred Healthcare12-11-2024 Telephone encounter Note * Telephone Encounter - Emani Torres - 01/19/2024 10:27 AM EST Spoke with patient and rescheduled as directed. PSS - please print and mail an updated schedule to the patient. Emani Torres [facility]12-09-2024 Telephone encounter Note* Telephone Encounter - Chanel Foreman LPN - 01/17/2024 12:08 PM EST Has GI apt in [place]. Will need OV with Vandana perkins per her note below. Chanel Foreman LPN [facility]12-09-2024 Telephone encounter Note* Telephone Encounter - Vandana Edwards - 01/17/2024 11:30 AM EST Pt needs GI workup, EDG and scope. Repeat CBC ordered. Unfortunately, I do not have any new information to further eval his anemia from our last OV. He does not need OV with us until after he meets with GI. [facility]12-09-2024 Telephone encounter Note* Telephone Encounter - Chanel Foreman LPN - 01/17/2024 9:32 AM EST What labs would you like. Chanel Foreman LPN [facility]12-09-2024 Telephone encounter Note* Telephone Encounter - Cristela Batres - 01/17/2024 9:[address] LABS PATIENT COMING IN ON 01/20 [facility]12-06-2024 Telephone encounter Note* Telephone Encounter - Radha Anand - 01/14/2024 1:34 PM EST Lvm for patient to return the call. Patient missed todays apointment Radha Anand [facility]11-22-2024 Telephone encounter Note* Telephone Encounter - Sabra Desouza APRN.CRNA - 12/31/2023 4:43 PM EST Please cancel endo procedures at [facility] 01/07/24. Pt needs to be scheduled in the hospital setting dueto medical history (Cirrhosis). I called and spoke with him and gave him the scheduling phone number so he can reschedule himself. [facility] Work Phone: 1(398) 507-361511-22-2024 Miscellaneous Notes* Telephone Encounter - Sabra Desouza APRN.CRNA - 12/31/2023 4:43 PM EST Please cancel endo procedures at [facility] 01/07/24. Pt needs to be scheduled in the hospital setting dueto medical history (Cirrhosis). I called and spoke with him and gave him the scheduling phone number so he can reschedule himself. documented in this encounterKindred Healthcare11-18-2024 Instructions* Patient Instructions* Marianna Wagner APRN.CNP - 12/27/2023 2:37 PM EST Pneumococcal vaccine Shingrix Tdap RSV documented in this encounterKindred Healthcare11-18-2024 NoteHNO ID: [id number] Author: MARIANNA WAGNER APRN.CNP Service: ? Author [...] Got it through a diabetic clinic in [facility] has been refilling [...] lbs. Was 165 lbs prior to the intermediate in June. Has frequent nausea and vomiting. Has a low appetite Unsure of what his last A1C was BS are either really high or low. Has a freestyle mango. Taking Lantus insulin. No meal time insulin. Taking Farxiga and Metformin (has been on that for awhile). Was supposed to follow with a soft sugar cutter Hx of aortic valve replacement Had a congenital aortic aneurysm Has a pacemaker Has had heart attack He is not following with any specialists right now. States he either had a seizure or stroke and was placed in the hospital and then went to a intermediate for 5 weeks. 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 mechanical Syncope Tachy-fernando syndrome (HCC) Tobacco abuse chronic Tobacco user Type 2 diabetes mellitus (HCC) PAST DARELL (more content not included)...[facility]11-18-2024 History of Present illness Narrative* Marianna Wagner, VIRIDIANA.GAMEWELL OPERATOR - 12/27/2023 2:19 PM EST CHIEF COMPLAINT: [...] with meals and snacks. He remains on Ftmcnqnz10 mg BID. He is still taking his iron replacement. Using Freestyle Mango 3 (has it on his right forearm) Got it through a diabetic clinic in [facility] has been refilling [...] lbs. Was 165 lbs prior to the intermediate in June. Has frequent nausea and vomiting. Has a low appetite Unsure of what his last A1C was BS are either really high or low. Has a freestyle mango. Taking Lantus insulin. No meal time insulin. Taking Farxiga and Metformin (has been on that for awhile). Was supposed to follow with a soft sugar cutter Hx of aortic valve replacement Had a congenital aortic aneurysm Has a pacemaker Has had heart attack He is not following with any specialists right now. States he either had a seizure or stroke and was placed in the hospital and then went to a intermediate for 5 weeks. 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[facility]) Anxiety Aortic aneurysm (HCC) S/P Repair Aortic valve disorder S/P Replacement CAD (coronary artery disease) nonobstructive Chronic kidney disease, stage III (moderate) ([facility]) Clostridioides difficile infection Coronary artery disease Depression Diabetes mellitus, type II ([facility]) Insulin dependent History of alcohol abuse Hx of ascending aorta repair Hyperlipidemia Hypertension Non-ST elevation NE (NSTEMI) ([facility]) 06/24 Pacemaker Paroxysmal atrial fibrillation ([facility]) RBBB (right bundle branch block) S/P aortic valve replacement [facility] Wero mechanical Syncope Tachy-fernando syndrome ([facility]) Tobacco abuse chronic Tobacco user Type 2 diabetes mellitus (HCC) PAST SURGICAL HISTORY Procedure Laterality Date ABD AORTIC ANEURYSM REPAIR ASCENDING AORTA GRAFT W/AORTIC ROOT COLONOSCOPY SCREENING In [place] CORONARY ARTERY BYPASS GRAFT HX 2016 2005 [...] Current Outpatient Medications Medication Sig Dispense Refill whexca-knoohsjs-mfoqcyr (CREON 36) 36,000-114,000- 180,000 unit delayed release capsule Take 2 pills by mouth with first bite of meal and take 1 pill with snacks. Max 10 per day. 300 capsule 3 Insulin Carson, Disposable, (BD ULTRA-FINE NORBERTO PEN NEEDLE) 32 [...] 2 Blood-Glucose Meter,Continuous (FREESTYLE MANGO 3 READER) [facility] Use to check blood sugar at least [...] sooner should any other issues arise. - BreathometerE 3 SENSOR DEVICE 3. Stage 3 chronic [...] patient. Marianna Wagner APRN.CNP documented in this encounterKindred Healthcare11-15-2024 Instructions* Patient Instructions* Susana Ramirez, KENNY - 12/24/2023 10:55 AM EST COLONOSCOPY BOWEL [...] am on dialysis? A: Please consult your patient biller prior to scheduling to get instructions pertinent [...] am on dialysis? A: Please consult your patient biller prior to scheduling to get instructions pertinent [...] rest of the day. documented in this encounterKindred Healthcare11-15-2024 NoteHNO ID: [id number] Author: SUSANA RAMIREZ APRN.GAMEWELL OPERATOR Service: ? Author Type: Nurse Practitioner Type: [...] for internal providers or letter via the [employer] for external providers. HPI: Analilia [...] Abs Lymph 1.00 - 4.00 k/uL 1.82 Mcdonough% % 11.0 Abs Mcdonough <0.87 k/uL 0.51 Eosin% % 0.0 Abs [...] ascending aorta repair Hyperlipidemia Hypertension Non-ST elevation NE (NSTEMI) (HCC) 06/24 Pacemaker Paroxysmal atrial fibrillation (HCC) RBBB (right bundle branch block) S/P aortic valve replacement [facility] mechanical Syncope Tachy-fernando syndrome (HCC) Tobacco abuse chronic Tobacco user Type 2 diabetes mellitus (HCC) PAST SURGICAL HISTORY Procedure Laterality Date ABD AORTIC ANEURYSM REPAIR ASCENDING AORTA GRAFT W/AORTIC ROOT COLONOSCOPY SCREENING In [place] CORONARY ARTERY BYPASS GRAFT HX 2016 2005 HEART CATHETERIZATION 06/24/2016 HEART VALVE REPLACEMENT 2017 Aortic x2 ;2014 HERNIA REPAIR HX PACEMAKER 06/25/2016 REPLACEMENT AORTIC VALVE W BYPASS Allergies: ALLERGIES No Known Allergies Medications: Insulin Carson, Disposable, (BD ULTRA-FINE NORBERTO PEN NEEDLE) 32 gauge x 5/32 1 Each three times a day. metFORMIN (GLUCOPHAGE) 500 mg tablet Take 1 tablet by mouth daily with breakfast. Cholecalciferol, Vitamin D3, (VITAMIN D-3) 50 mcg (2,000 unit) cap Take 1 capsule by mouth once daily. ferrous sulfate 325 mg (65 mg iron) tablet Take 1 tablet by mouth once daily. Blood-Glucose Meter,Continuous ([employer] MANGO 3 READER) [facility] Use to check blood sugar at least four (4) times daily. Blood-Glucose Sensor (FREESTYLE MANGO 3 SENSOR) daniel Apply new sensor every fourteen (14) days to upper arm. FARXIGA 10 mg tablet Take 1 tablet by mouth daily with breakfast. insulin glargine 100 unit/mL (3 mL) In (more content not included)...[facility]11-15-2024 History of Present illness Narrative* Susana Ramirez APRN.GAMEWELL OPERATOR - 12/24/2023 10:35 AM EST CHIEF COMPLAINT: Patient presents with: Anemia: Diarrhea and blood in the stool This consult was requested by Marianna Wagner APRN* for an opinion regarding anemia. My final recommendations will be communicated to the requesting health care provider by way of the shared medical record for internal providers or letter via the [employer] for external providers. HPI: Analilia [...] Abs Lymph 1.00 - 4.00 k/uL 1.82 Mcdonough% % 11.0 Abs Mcdonough <0.87 k/uL 0.51 Eosin% % 0.0 Abs [...] ascending aorta repair Hyperlipidemia Hypertension Non-ST elevation NE (NSTEMI) (HCC) 06/24 Pacemaker Paroxysmal atrial fibrillation (HCC) RBBB (right bundle branch block) S/P aortic valve replacement [facility] [facility] mechanical Syncope Tachy-fernando syndrome (HCC) Tobacco abuse chronic Tobacco user Type 2 diabetes mellitus (HCC) PAST SURGICAL HISTORY Procedure Laterality Date ABD AORTIC ANEURYSM REPAIR ASCENDING AORTA GRAFT W/AORTIC ROOT COLONOSCOPY SCREENING In [place] CORONARY ARTERY BYPASS GRAFT HX 2016 2005 HEART CATHETERIZATION 06/24/2016 HEART VALVE REPLACEMENT 2017 Aortic x2 ;2014 HERNIA REPAIR HX PACEMAKER 06/25/2016 REPLACEMENT AORTIC VALVE W BYPASS Allergies: ALLERGIES No Known Allergies Medications: Insulin Carson, Disposable, (BD ULTRA-FINE NORBERTO PEN NEEDLE) 32 [...] daily. Blood-Glucose Meter,Continuous (FREESTYLE MANGO 3 READER) [facility] Use to check blood sugar at least [...] meals and 1 pill with snacks - yrtnlu-rbkyqcmz-gpwxzqp (CREON 36) 36,000-114,000- 180,000 unit delayed release capsule; Take 2 pills by mouth with first bite of meal and take 1 pill with snacks. Max 10 per day. Dispense: 300 capsule; Refill: 3 - EGD DIAGNOSTIC; Future 4. Epigastric pain - continue with pantorpazole 40mg BID - EGD DIAGNOSTIC; Future 5. Right lower quadrant abdominal pain - colonoscopy Follow up in office after scopes Susana Ramirez APRN.CNP December 24, 2023 11:28 AM documented in this encounterKindred Healthcare11-07-2024 Telephone encounter Note * Telephone Encounter - Suzi Haynes MA - 12/16/2023 5:04 PM EST Patient informed of results and to keep GI appointment on 12/24/23 at 11:20, reiterated the appointment and time to patient multiple times. Suzi Haynes MA [facility]11-07-2024 Telephone encounter Note* Telephone Encounter - Suzi Haynes MA - 12/16/2023 5:04 PM EST ----- Message from Marianna Wagner APRN.CNP sent at 12/15/2023 6:32 PM EST ----- CT pancreas showed chronic calcified pancreatitis with multiple stones and dilation of the duct. There was no mass. He needs to make the appointment with GI on 12/23 [facility]11-07-2024 Miscellaneous Notes* Telephone Encounter - Suzi Haynes MA - 12/16/2023 5:04 PM EST Patient informed of results and to keep GI appointment on 12/24/23 at 11:20, reiterated the appointment and time to patient multiple times. Suzi Haynes MA * Telephone Encounter - Suzi Haynes MA - 12/16/2023 5:04 PM EST ----- Message from Marianna Wagner APRN.GAMEWELL OPERATOR sent at 12/15/2023 6:32 PM EST ----- CT pancreas showed chronic calcified pancreatitis with multiple stones and dilation of the duct. There was no mass. He needs to make the appointment with GI on 12/23 documented in this encounterKindred Healthcare10-30-2024 Miscellaneous Notes* [facility] - Anny [place] CT - [...] PATIENT PRESENTS WITH AN IMPLANTABLE OR ATTACHED SMALL ANIMAL VETERINARIAN: No RADIOLOGY DEPARTMENT: CT; Exam(s) Completed: Pancreas PERIPHERAL IV DATA: Site assessment: Clean,Dry and Intact, Site disposition Discontinued SIGNED BY: KIRA Thomas December 08, 2023 10:57 AM documented in this encounterKindred Healthcare10-30-2024 Nurse Note* Sigrid Mata RN - 12/08/2023 [...] DATE: December 08, 2023 TIME: 10:42 AM [facility]10-30-[facility] Nurse Note* Sigrid Mata RN - 12/08/2023 [...] 2023 TIME: 10:42 AM documented in this encounterKindred Healthcare10-30-2024 Progress note* [facility] - Anny Durham [...] PATIENT PRESENTS WITH AN IMPLANTABLE OR ATTACHED SMALL ANIMAL VETERINARIAN: No RADIOLOGY DEPARTMENT: CT; Exam(s) Completed: Pancreas PERIPHERAL IV DATA: Site assessment: Clean,Dry and Intact, Site disposition Discontinued SIGNED BY: KIRA Thomas December 08, 2023 10:57 AM [facility]10-29-2024 Telephone encounter Note* Telephone Encounter - Marianna Wagner APRN.CNP - 12/07/2023 1:00 PM EDT New order for CT pancreas was placed since last one was discontinued. [facility]10-29-2024 Miscellaneous Notes* Telephone Encounter - Marianna Wagner APRN.CNP - 12/07/2023 1:00 PM EDT New order for CT pancreas was placed since last one was discontinued. documented in this encounterKindred Healthcare10-21-2024 Telephone encounter Note * Telephone Encounter - Marianna Wagner APRN.CNP - 11/29/2023 12:14 PM EDT Completed peer to peer for CT pancreas with IV contrast and obtained approval. # [id number] until 11/30/2023-12/31/2023 He is scheduled tomorrow for the CT. Spoke with Dr. Murillo with [facility] for reference. [facility]10-21-2024 Miscellaneous Notes* Telephone Encounter - Marianna Wagner APRN.CNP - 11/29/2023 12:14 PM EDT Completed peer to peer for CT pancreas with IV contrast and obtained approval. # [id number] until 11/30/2023-12/31/2023 He is scheduled tomorrow for the CT. Spoke with Dr. Murillo with [facility] for reference. * Telephone Encounter - Twyla Espana - 11/25/2023 12:53 PM EDT Denial: CPT 76065-XC PANCREAS W IVCON Denial Type: Payer Clinical [...] Yes Peer to Peer Deadline: 11/30/2023 Insurance Case#[id number] Peer to Peer opt 2 (enter tracking#) / opt 1 Denial sent to providers email documented in this encounterKindred Healthcare10-18-2024 Telephone encounter Note * Telephone Encounter - Andrew Ponce MA - 11/26/2023 10:30 AM EDT Patient requesting refills: Last office visit 10/14/2023. Last refill . Requested Prescriptions Pending Prescriptions Disp Refills Insulin Carson, Disposable, (BD ULTRA-FINE NORBERTO PEN NEEDLE) 32 gauge x 5/32 Sig: three times a day. Please review and advise. Andrew Ponce MA [facility]10-18-2024 Miscellaneous Notes* Telephone Encounter - Andrew Ponce MA - 11/26/2023 10:30 AM EDT Patient requesting refills: Last office visit 10/14/2023. Last refill . Requested Prescriptions Pending Prescriptions Disp Refills Insulin Carson, Disposable, (BD ULTRA-FINE NORBERTO PEN NEEDLE) 32 gauge x 5/32 Sig: three times a day. Please review and advise. Andrew Ponce MA documented in this encounterKindred Healthcare10-17-2024 Telephone encounter Note * Telephone Encounter - Twyla Espana - 11/25/2023 12:53 PM EDT Denial: CPT 38942-HT PANCREAS W IVCON Denial Type: Payer Clinical [...] Yes Peer to Peer Deadline: 11/30/2023 Insurance Case#[id number] Peer to Peer opt 2 (enter tracking#) / opt 1 Denial sent to providers email [facility]10-08-2024 Telephone encounter Note* Telephone Encounter - Giulia Rogel MA - 11/16/2023 5:16 PM EDT Patient is informed Giulia Rogel MA [facility]10-08-2024 Miscellaneous Notes* Telephone Encounter - Giulia Rogel [...] Patient left message stating he saw the art instructor yesterday and they are very worried about his stomach and wants him to be seen by GI sooner than 12/24/23. Patient states he has called and they cannot see him any sooner and wanted to know if there was anything Marianna could do. Please advise. Suzi Haynes MA documented in this encounterKindred Healthcare10-08-2024 Telephone encounter Note * Telephone Encounter - Marianna Wagner APRN.CNP - 11/16/2023 4:49 PM EDT Please let the patient know that I contacted GI and there is nothing available until his appointment in December. He needs to make this appointment. [facility]10-08-2024 Telephone encounter Note* Telephone Encounter - Carolina Benito - 11/16/2023 4:20 PM EDT Unfortunately, we do not have any openings sooner as of right now. I would suggest if he is needingto be seen urgently to contact central scheduling at if he is willing to go to any location for care. We did add him to the wait list. Carolina Benito [facility]10-08-2024 Telephone encounter Note* Telephone Encounter - Marianna Wagner APRN.CNP - 11/16/2023 3:03 PM EDT I have already tried to get him a sooner appointment but then he missed that appointment. I will send the request to their office but there may not be anything available. [facility]10-08-2024 Telephone encounter Note* Telephone Encounter - Suzi Haynes MA - 11/16/2023 2:32 PM EDT Patient left message stating he saw the art instructor yesterday and they are very worried about his stomach and wants him to be seen by GI sooner than 12/24/23. Patient states he has called and they cannot see him any sooner and wanted to know if there was anything Marianna could do. Please advise. Suzi Haynes MA [facility]10-07-2024 NoteHNO ID: [id number] Author: VANDANA EDWARDS, ? Service: ? Author [...] uses NSAIDs. Occasional reflux. He was in intermediate for 6 weeks in june for rehab [...] ascending aorta repair Hyperlipidemia Hypertension Non-ST elevation NE (NSTEMI) ([facility]) 06/24 Pacemaker Paroxysmal atrial fibrillation (HCC) RBBB [...] 2 Blood-Glucose Meter,Continuous (FREESTYLE MANGO 3 READER) [facility] Use to check blood sugar at least [...] 1 tablet by mouth once daily. Insulin Carson, Disposable, (NORBERTO PEN NEEDLE) 32 gauge x [...] General: Age-appropriate well devel (more content not included)...[facility]10-07-2024 History of Present illness Narrative* Vandana Edwards - 11/15/2023 10:41 AM EDT Progress Note [...] uses NSAIDs. Occasional reflux. He was in intermediate for 6 weeks in june for rehab from seizure/TIA. Tolerating PO iron. No personal or family hx or bleeding disorders. Brother hx of leukemia. PAST MEDICAL HISTORY Diagnosis Date Alcohol-induced chronic pancreatitis (HCC) Anxiety Aortic aneurysm (HCC) S/P Repair Aortic valve disorder S/P Replacement CAD (coronary artery disease) nonobstructive Chronic kidney disease, stage III (moderate) ([facility]) Clostridioides difficile infection Coronary artery disease Depression Diabetes mellitus, type II (HCC) Insulin dependent History of alcohol abuse Hx of ascending aorta repair Hyperlipidemia Hypertension Non-ST elevation NE (NSTEMI) ([facility]) 06/24 Pacemaker Paroxysmal atrial fibrillation (HCC) RBBB [...] 1 tablet by mouth once daily. Insulin Carson, Disposable, (NORBERTO PEN NEEDLE) 32 gauge x [...] 5' 10 (1.78m) Wt 132 lb (59.9kg) DiF927% BMI 18.94 kg/(m^2). General: Age-appropriate well developed. [...] with labs in 8 weeks. Vandana Edwards APRN.CNP I spent a total of 45 minutes on the date of the service which included preparing to see the patient, ityw-zz-kedn patient care, completing clinical documentation, counseling and [...] evaluation of this patient. documented in this encounterKindred Healthcare10-01-2024 Telephone encounter Note * Telephone Encounter - Suzi Haynes MA - 11/09/2023 1:54 PM EDT Patient informed of results and additional imaging ordered. Suzi Haynes MA [facility]10-01-2024 Miscellaneous Notes* Telephone Encounter - Suzi Haynes MA - 11/09/2023 1:54 PM EDT Patient informed of results and additional imaging ordered. Suiz Haynes MA * Telephone Encounter - Marianna Wagner APRN.CNP - 11/07/2023 7:[address] abd showed dilatation of the pancreatic duct possibly due to chronic pancreatitis.I placed an order for a CT for his pancreas. documented in this encounterKindred Healthcare09-30-2024 Telephone encounter Note * Telephone Encounter - [...] Please review and advise. Suzi Haynes MA [facility]09-30-2024 Miscellaneous Notes* Telephone Encounter - Suzi Haynes [...] advise. Suzi Haynes MA documented in this encounterKindred Healthcare09-29-2024 Telephone encounter Note * Telephone Encounter - Marianna Wagner APRN.CNP - 11/07/2023 7:[address] abd showed dilatation of the pancreatic duct possibly due to chronic pancreatitis.I placed an order for a CT for his pancreas. [facility]09-27-2024 NoteHNO ID: [id number] Author: YESSICA UMANA LPN Service: ? Author Type: LICENSED NURSE Type: Progress Notes Filed: 11/05/2023 13:46 Note Text: ED Follow Up: Patient discharged from [facility] ED on 10/30/2023. 1. How [...] you able to contact the office or strategy planning consultant provider prior to your ED visit? Left message for pt to call office. 5. Is there anything else I can do for you today? Left message for pt to call office.[facility]09-27-2024 History of Present illness Narrative* Yessica Umana LPN - 11/05/2023 1:44 PM EDT ED Follow Up: Patient discharged from [facility] ED on 10/30/2023. 1. How [...] you able to contact the office or strategy planning consultant provider prior to your ED visit? Left message forpt to call office. 5. Is there anything else I can do for you today? Left message for pt to call office. documented in this encounterKindred Healthcare09-27-2024 NotePatient Outreach (AGINTMLW) ANALILIA MELENDREZ ([id number]) 1960 M Date Time Provider Department 11/05/23 YESSICA UMANA AGINTMLW During your visit today, we recorded the following information about you: Yessica Umana LPN 11/05/2023 1:46 PM Signed ED Follow Up: Patient discharged from [facility] ED on 10/30/2023. 1. How [...] you able to contact the office or strategy planning consultant provider prior to your ED visit? Left message for pt to call office. 5. Is there anything else I can do for you today? Left message for pt to call office. Allergies As of Date: 11/05/2023 (No Known Allergies) Date Reviewed: 10/14/2023 Reviewed by: Marianna Wagner APRN.GAMEWELL OPERATOR - Fully Assessed Prescriptions as of 11/05/2023 - metFORMIN (GLUCOPHAGE) 500 mg tablet Take 1 tablet by mouth daily with breakfast. - Cholecalciferol, Vitamin D3, (VITAMIN D-3) 50 mcg (2,000 unit) cap Take 1 capsule by mouth once daily. - ferrous sulfate 325 mg (65 mg iron) tablet Take 1 tablet by mouth once daily. - Blood-Glucose Meter,Continuous (FREESTYLE MANGO 3 READER) [facility] Use to check blood sugar at least four (4) times daily. - Blood-Glucose Sensor (FREESTYLE MANOG 3 SENSOR) daniel Apply new sensor every [...] tablet by mouth once daily. 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/03/2017 Chronic pancreatitis (HCC) [K86.1] 08/09/2023 Calcium [...] 08/09/2023 Histor (more content not included)...[facility]09-21-2024 Hospital Discharge instructions Patient Education 10/30/2023 [...] and smoking to help manage this disease. [id number] [employer]. [address] [place] [address], [place] [address]. All rights reserved. This information is not [...] medicine if directed by your healthcare provider. 5369-7156 [employer]. [address] [place] [address]. All rights reserved. This information is not intended as a substitute for professional medical care. Always follow yourhealthcare professional's instructions. Follow Up Care 10/30/2023 15:12:07 With:VANESSA GROSS MD Address: [facility] [facility], [place] [address]- [phone] When:3-5 days With:Go to emergency room if symptoms worsen Address:Unknown When:2-4 days With:MARIANNA WAGNER CLAM DREDGERMiahC Address: [address] [place] [address] [phone] When:2-4 days [facility] 09-21-2024 Note Discharge Instructions Thank you for allowing [facility] to assist you with your healthcare needs. The following is importantdischarge information regarding your hospital visit. Diagnosis from Today's Visit Abdominal pain Lightheaded What to Do Next Instructions from Your Care Team No qualifying data available. Post Acute Orders No qualifying data available. You Need to Schedule the Following Appointments Follow Up with VANESSA GROSS MD When:Within 3-5 days Where:[address] [facility] [address] [facility], [place] [address]- [phone] Follow Up with Go to emergency room if symptoms worsen When:Within 2-4 days Follow Up with MARIANNA WAGNERC When:Within 2-4 days Where:[address] [place] [address]- [phone] Allergies NKA Medications Please ask your primary [...] and smoking to help manage this disease. [phone] [employer]. [address] [place] [address]. All rights reserved. This information is not [...] medicine if directed by your healthcare provider. 4522-3598 [employer]. [address] [place] [address]. All rights reserved. This information is not intended as a substitute for professional medical care. Always follow yourhealthcare professional's instructions. Additional Information VACCINATE! IT SAVES LIVES! Members of the community who have not yet received the COVID-19 vaccine and would like to receive it can visit one of [facility] vaccine clinics. There are many vaccine clinic locations within the [facility]. For locations and available times, please visit www.gettheshot.coronavirus.[place].gov/. It is important to note that some COVID mobile vaccine clinics are held outdoors and may be canceled in rainy or stormy conditions. To learn more about pediatric vaccinations (ages 5-11), we invite you to visit the [facility] webpage. https://www.[facility].org/pages/5036-Actxo-Legcrwcoldm-Ljiruhuejw-Vzqat-Hee stions.htmlTo learn more about the COVID-19 vaccine, we invite you to visit the CDC website for a list of frequently asked questions. https://www.cdc.gov/coronavirus/2019-ncov/vaccines/faq.html [facility] Patient Portal Access Instructions: Stay connected with your healthcare team and access your personal medical information anytime with the [facility] Patient Portal. If you would like a full copy of your medical records please contact the [facility] Medical Records Department Wednesday through Wednesday between 8a.m. and 4:30p.m. Please follow the directions below to access the portal: 1.Access the email account you provided upon registration to the [facility].2.Look for an invitation email from [facility].3.Open the email and access the invitation link: Accept Invitation to [facility]4.Fill in the required smith to create your account. Sign into www.[employer] with your username and password that you [...] you will allow to register on the [facility] Patient Portal for access to your information. You can also access the [facility] Patient Portal on the [employer] logan. Simply click on Health Records under Fiiiling and then click on the Mint logo. HOW TO SAFELY DISPOSE OF PRESCRIPTION [...] Call your local pharmacy or go to [email or web address] to find one close to you.3.Make use of household items: Use cat litter or old coffee grounds to dispose medications if other options arenot available. Mix your drugs with these household products, seal them in an airtight container andthrow it into the garbage. Call [facility]: [phone] to be sure your drugs can be [...] aware that I should contact my doctor. 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 Interpreted by: aNrendra Gama Preliminary Report By: Narendra Gama Electronically signed By Narendra Gama Dictated Date: 10/30/2023 5:22:48 PM Prelim Date: 10/30/2023 5:23:53 PM Sign Date: 10/30/2023 5:23:53 PM Ordering Provider: [facility]09-21-2024 Note ORIGINAL EXAMINATION: CT OF THE [...] Sign Date: 10/30/2023 5:39:58 PM Ordering Provider: [facility]09-21-2024 Note ORIGINAL EXAMINATION: CT OF THE [...] Interpreted by: Aldo Torres Preliminary Report By: Adlo Torres Electronically signed By Aldo Torres Dictated Date: 10/30/2023 5:14:26 PM Prelim Date: 10/30/2023 5:19:12 PM Sign Date: 10/30/2023 5:19:12 PM [facility] Sinus rhythm Probable left atrial enlargement Right bundle branch block Electronic Signature: ANN-MARIE DILLON DO 10/30/2023 15:35:[address] [place] [address] 09-11-2024 Telephone encounter Note* Telephone Encounter - Emani Torres - 10/20/2023 8:39 AM EDT Spoke with patient and scheduled. Emani Torres [facility]09-11-2024 Miscellaneous Notes* Telephone Encounter - Emani Torers - 10/20/2023 8:39 AM EDT Spoke with patient and scheduled. Emani Torres * Telephone Encounter - Sabra Rios LPN - 10/19/2023 12:10 PM EDT First available with Vandana Rios LPN * Telephone Encounter - Gracie Tinsley - 10/19/2023 11:25 AM EDT Patient is being referred to Dr Silverio. This patient is not appropriate to offer our virtual anemia clinic. DX: Anemia Insurance: [place] Medicaid Referred by: Marianna Wagner APRN.GAMEWELL OPERATOR Please review and advise documented in this encounterKindred Healthcare09-10-2024 Telephone encounter Note * Telephone Encounter - Sabra Rios LPN - 10/19/2023 12:10 PM EDT First available with Vandana Rios LPN [facility]09-10-2024 Telephone encounter Note* Telephone Encounter - Gracie Tinsley - 10/19/2023 11:25 AM EDT Patient is being referred to Dr Silverio. This patient is not appropriate to offer our virtual anemia clinic. DX: Anemia Insurance: [place] Medicaid Referred by: Marianna Wagner APRN.GAMEWELL OPERATOR Please review and advise [facility]09-09-2024 Telephone encounter Note* Telephone Encounter - Suzi Haynes MA - 10/18/2023 2:45 PM EDT Patient informed of all results, recommendations, appointment information and scripts sent in. Patient states he is going to have to move one of his appointments either the GI or the CT. Per conversation with Marianna Wagner CNP advised patient not to change GI appointment, left message for [facility] radiology to move patient's CT appointment. Suzi Haynes MA [facility]09-09-2024 Miscellaneous Notes* Telephone Encounter - Suzi Haynes MA - 10/18/2023 2:45 PM EDT Patient informed of all results, recommendations, appointment information and scripts sent in. Patient states he is going to have to move one of his appointments either the GI or the CT. Per conversation with Marianna Wagner CNP advised patient not to change GI appointment, left message for [facility] radiology to move patient's CT appointment. [...] to hematology. Referral to Dr. Silverio in [place]. documented in this encounterKindred Healthcare09-08-2024 Telephone encounter Note * Telephone Encounter - [...] to hematology. Referral to Dr. Silverio in [place]. [facility]09-05-2024 Instructions* Patient Instructions* Marianna Wagner APRN.CNP - 10/14/2023 11:17 AM EDT Schedule with GI Get labs done Start iron replacement- take with vitamin C (OJ) Check if you are taking vitamin D Make sure you are taking Protonix/pantoprazole [facility] [address] [place] [address] Appointment: [phone] Desk: [phone] What protein supplements can I buy at the grocery store? * Ensure Plus (13 grams of protein per bpttle) * Boost High Protein (15 grams of protein per bottle) * Coram Instant Breakfast packet with 8oz gkass of milk (13 grams of protein) Beneprotein (6 grams of protein 1 pkg.) can be mixed with 2-4 oz. of any liquid [place]ham s Shakes (10 grams of protein per bottle) Milkshake Chugs (14 grams of protein per bottle) Usound Perfectly Protein (10 grams of protein per [...] friendly products please ask your dietitian. FYI: Luxembourgish yogurt has more protein than regular yogurt Usound is in organic section of your grocery stores Coram Instant Breakfast is in the breakfast cereal aisle Milkshake Chugs are in the milk aisle Odwalla Protein Monster is in the organic section of the grocery store Some suggestions to make protein supplements easier to drink: Drink protein supplements cold Drink in a cup with a lid, like a travel mug (no straw) to decrease the smell documented in this encounterKindred Healthcare09-05-2024 NoteHNO ID: [id number] Author: MARIANNA WAGNER APRN.STEPHANIE Service: ? Author [...] UTI in August. + for E.coli. OV 7/1/24: Analilia Melendrez is a 63 year old [...] lbs. Was 165 lbs prior to the intermediate in June. Has frequent nausea and vomiting. Has a low appetite Unsure of what his last A1C was BS are either really high or low. Has a freestyle mango. Taking Lantus insulin. No meal time insulin. Taking Farxiga and Metformin (has been on that for awhile). Was supposed to follow with a soft sugar cutter Hx of aortic valve replacement Had a congenital aortic aneurysm Has a pacemaker Has had heart attack He is not following with any specialists right now. States he either had a seizure or stroke and was placed in the hospital and then went to a intermediate for 5 weeks. 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 Started smoking [...] No date: Anxiety No date: Aortic aneurysm ([facility]) Comment: S/P Repair No date: Aortic aneurysm ([facility]) No date: Aortic valve disorder Comment: S/P Replacement No date: CAD (coronary artery disease) Comment: nonobstructive No date: Coronary artery disease No date: Depression No date: Diabetes mellitus, type II ([facility]) Comment: Insulin dependent No date: Hx of ascending aorta repair No date: Hyperlipidemia No date: Hypertension No date: Non-ST elevation NE (NSTEMI) ([facility]) Comment: 06/24 No date: NSTEMI (non-ST elevated myocardial infarction) (HCC) No date: Pacemaker No date: Pacemaker No date: Paroxysmal atrial fibrillation (HCC) No date: RBBB (right bundle branch block) No date: S/P aortic valve replacement Comment: St. 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HCC) No date: Tachy-fernando syndrome (HCC) No date: Tobacco abuse Comment: chronic No date: Tobacco user No date: Type 2 diabetes mellitus (HCC) PAST SURGICAL HISTORY No date: ABD AORTIC [...] Smokeless toba (more content not included)...[facility] 10-14-2023 History of Present illness Narrative* Marianna Wagner, VIRIDIANA.GAMEWELL OPERATOR - 10/14/2023 11:09 AM EDT CHIEF COMPLAINT: [...] lbs. Was 165 lbs prior to the intermediate in June. Has frequent nausea and vomiting. Has a low appetite Unsure of what his last A1C was BS are either really high or low. Has a freestyle mango. Taking Lantus insulin. No meal time insulin. Taking Farxiga and Metformin (has been on that for awhile). Was supposed to follow with a soft sugar cutter Hx of aortic valve replacement Had a congenital aortic aneurysm Has a pacemaker Has had heart attack He is not following with any specialists right now. States he either had a seizure or stroke and was placed in the hospital and then went to a intermediate for 5 weeks. 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 Started smoking [...] No date: Anxiety No date: Aortic aneurysm ([facility]) Comment: S/P Repair No date: Aortic aneurysm ([facility]) No date: Aortic valve disorder Comment: S/P Replacement No date: CAD (coronary artery disease) Comment: nonobstructive No date: Coronary artery disease No date: Depression No date: Diabetes mellitus, type II ([facility]) Comment: Insulin dependent No date: Hx of ascending aorta repair No date: Hyperlipidemia No date: Hypertension No date: Non-ST elevation NE (NSTEMI) ([facility]) Comment: 06/24 No date: NSTEMI (non-ST elevated myocardial infarction) ([facility]) No date: Pacemaker No date: Pacemaker No date: Paroxysmal atrial fibrillation ([facility]) No date: RBBB (right bundle branch block) No date: S/P aortic valve replacement Comment: [facility]. 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[facility]) No date: Tachy-fernando syndrome ([facility]) No date: Tobacco abuse Comment: chronic No date: Tobacco user No date: Type 2 diabetes mellitus ([facility]) PAST SURGICAL HISTORY No date: ABD AORTIC [...] Refill Blood-Glucose Meter,Continuous (FREESTYLE MANGO 3 READER) misc [...] 1 tablet by mouth once daily. Insulin Carson, Disposable, (NORBERTO PEN NEEDLE) 32 gauge x [...] Monocytes % 09/25/2023 10.1 % Final Abs Mcdonough 09/25/2023 0.48 <0.87 k/uL Final Eosinophils % [...] 99 74 - 99 mg/dL Final The [place] Diabetes Association (ADA) provides guidance for cutoff [...] Standards of Medical Care in Diabetes 2016, [place] [employer] Association. Diabetes Care. 2016.39(Suppl 1). BUN [...] - ACEi/ARB prescribed: Yes - SGLT2i prescribed: KRISTAXIGA Tab - ALBUMIN/CREATININE RATIO, URINE 11. Elevated [...] of. Patient expresses understanding. Counseling completed in [facility] behaviors such as avoiding excessive alcohol use, avoid tobacco use, improve nutrition, and engage in physical activities. Copy of written care plan, clinical summary, treatment plan, new medications, goals, and self management requirements were given to patient. Marianna Wagner APRN.CNP documented in this encounterKindred Healthcare08-29-2024 Telephone encounter Note * Telephone Encounter - Giulia Rogel MA - 10/07/2023 5:11 PM EDT Patient is informed and and reminder placed. He states he needs to drop off the specimen and he will call IWONA Rogel MA [facility]08-29-2024 Miscellaneous Notes* Telephone Encounter - Giulia Rogel [...] appointment with GI yet? documented in this encounterKindred Healthcare08-29-2024 Telephone encounter Note * Telephone Encounter - Marianna Wagner APRN.CNP - 10/07/2023 11:29 AM EDT Hgb has decreased showing anemia. I want to recheck her CMP and CBC again in 2 weeks. Has he completed the stool studies yet? Or make an appointment with GI yet? [facility]08-16-2024 Telephone encounter Note* Telephone Encounter - Giulia Rogel MA - 09/24/2023 1:52 PM EDT Patient is informed but he gets rides through his insurance so he won't be able to sweet pickle maker the kit or get the blood work done for a while. He is going to try and go to [facility] to complete labs and stool study Giulia Rogel MA [facility]08-16-2024 Miscellaneous Notes* Telephone Encounter - Giulia Rogel MA - 09/24/2023 1:52 PM EDT Patient is informed but he gets rides through his insurance so he won't be able to sweet pickle maker the kit or get the blood work done for a while. He is going to try and go to [facility] to complete labs and stool study Giulia [...] too. I also placed some lab orders. [facility] [address] [place] [address] Appointment: [phone] Desk: [phone] * Telephone Encounter - Suzi Haynes MA [...] the restroom. States he was in a intermediate 6 weeks ago because of a seizure and the doctor in the intermediate had him on Tramadol for his stomach [...] advise. Suzi Haynes MA documented in this encounterKindred Healthcare08-16-2024 Telephone encounter Note * Telephone Encounter - [...] too. I also placed some lab orders. [facility] [address] [place] [address] Appointment: [phone] Desk: [phone] [facility]08-16-2024 Telephone encounter Note* Telephone Encounter - Suzi [...] the restroom. States he was in a intermediate 6 weeks ago because of a seizure and the doctor in the intermediate had him on Tramadol for his stomach [...] in anyway. Please advise. Suzi Haynes MA [facility]08-07-2024 NoteHNO ID: [id number] Author: RADHA ETIENNE RN Service: ? Author Type: Registered Nurse Type: Progress Notes Filed: 09/15/2023 14:15 Note Text: PRIMARY CARE COORDINATION QUICK NOTE Patient identified by name and date . PCC called to discuss Care Coordination services. Pt is not interested. Radha Etienne [facility]08-07-2024 History of Present illness Narrative* Radha Etienne, ELIS - 09/15/2023 2:10 PM EDT PRIMARY CARE COORDINATION QUICK NOTE Patient identified by name and date . PCC called to discuss Care Coordination services. Pt is not interested. Radha Etienne RN documented in this encounterKindred Healthcare08-07-2024 NotePatient Outreach (AGACM) ANALILIA MELENDREZ ([id number]) 1960 M Date Time Provider Department 09/15/23 RADHA ETIENNE [facility] During your visit today, we recorded the following information about you: Radha Etienne RN 09/15/2023 2:15 PM Signed PRIMARY CARE COORDINATION QUICK NOTE Patient identified by name and date . PCC called to discuss Care Coordination services. Pt is not interested. Radha Etienne RN Allergies As of Date: 09/15/2023 (No Known Allergies) Date Reviewed: 08/09/2023 Reviewed by: Marianna Wagner APRN.GAMEWELL OPERATOR - Fully Assessed Reason for Visit: [facility] [3612] Cmt: Care Coordination Prescriptions as of 09/15/2023 [...] tablet by mouth once daily. 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/03/2017 Chronic pancreatitis (HCC) [K86.1] 08/09/2023 Calcium [...] unspecified, uncomplicated*01/03/2017 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] 05/20/2023 prison (current) use of insulin (HCC) [Z79.4]01/03/2017 Pansystolic murmur [R01.1] 08/09/2023 Unspecified severe protein-calorie malnutrition*05/20/2023 Encounter Status:Closed by RADHA ETIENNE on 09/15/23[facility]08-05-2024 Telephone encounter Note* Telephone Encounter - Yessica Umana LPN - 09/13/2023 11:20 AM EDT Left message for pt to call office. Yessica Umana LPN [facility]08-05-2024 Miscellaneous Notes* Telephone Encounter - Yessica Umana [...] was having blood diarrhea. documented in this encounterKindred Healthcare08-05-2024 Telephone encounter Note * Telephone Encounter - Marianna Wagner APRN.CNP - 09/13/2023 8:16 AM EDT Please call patient to check on him since he did not go to an ER that I can see. He had called nurse rhys stating he was having blood diarrhea. [facility]08-02-2024 Telephone encounter Note* Telephone Encounter - Eloy [...] stand, low BP, rapid pulse) Protocols used: [id number] [facility]08-02-2024 Miscellaneous Notes* Telephone Encounter - Eloy Garcia [...] stand, low BP, rapid pulse) Protocols used: [id number] documented in this encounterKindred Healthcare08-02-2024 NoteHNO ID: [id number] Author: RADHA ETIENNE RN Service: ? Author Type: Registered Nurse Type: Progress Notes Filed: 09/10/2023 10:55 Note Text: PRIMARY CARE COORDINATION QUICK NOTE Patient identified by name and date . PCC called to introduce Care Coordination services. Pt prefers a call back another day, as he is just not feeling good today. Radha Etienne, [facility]08-02-2024 History of Present illness Narrative* Radha Etienne RN - 09/10/2023 10:49 AM EDT PRIMARY CARE COORDINATION QUICK NOTE Patient identified by name and date . PCC called to introduce Care Coordination services. Pt prefers a call back another day, as he is just not feeling good today. Radha Etienne RN documented in this encounterKindred Healthcare08-02-2024 NotePatient Outreach (AGACM) ANALILIA MELENDREZ ([id number]) 1960 M Date Time Provider Department 09/10/23 RADHA ETIENNE AGA[facility] During your visit today, we recorded the [...] Date Reviewed: 08/09/2023 Reviewed by: Marianna Wagner APRN.GAMEWELL OPERATOR - Fully Assessed Reason for Visit: [employer]- Other [3743] Cmt: Care Coordination Prescriptions as of 09/10/2023 [...] tablet by mouth once daily. 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/03/2017 Chronic pancreatitis (HCC) [K86.1] 08/09/2023 Calcium [...] unspecified, uncomplicated*01/03/2017 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] 05/20/2023 prison (current) use of insulin (HCC) [Z79.4]01/03/2017 Pansystolic murmur [R01.1] 08/09/2023 Unspecified severe protein-calorie malnutrition*05/20/2023 Encounter Status:Closed by RADHA ETIENNE on 09/10/23[facility]07-16-2024 NoteHNO ID: [id number] Author: RADHA ETIENNE RN Service: ? Author Type: Registered Nurse Type: Progress Notes Filed: 08/24/2023 13:57 Note Text: PRIMARY CARE COORDINATION QUICK NOTE Patient identified by name and date . PCC called to introduce care coordination services. Pt isn't home right now. Radha Etienne [facility]07-16-2024 History of Present illness Narrative* Radha Etienne, ELIS - 08/24/2023 1:52 PM EDT PRIMARY CARE COORDINATION QUICK NOTE Patient identified by name and date . PCC called to introduce care coordination services. Pt isn't home right now. Radha Etienne RN documented in this encounterKindred Healthcare07-16-2024 NotePatient Outreach (AGACM) ANALILIA MELENDREZ ([id number]) 1960 M Date Time Provider Department 08/24/23 RADHA ETIENNE [facility] During your visit today, we recorded the following information about you: Radha Etienne RN 08/24/2023 1:57 PM Signed PRIMARY CARE COORDINATION QUICK NOTE Patient identified by name and date . PCC called to introduce care coordination services. Pt isn't home right now. Radha Etienne RN Allergies As of Date: 08/24/2023 (No Known Allergies) Date Reviewed: 08/09/2023 Reviewed by: Marianna Wagner APRN.GAMEWELL OPERATOR - Fully Assessed Reason for Visit: [facility] [employer]- Other [0404] Cmt: Care Coordination Prescriptions as of 08/24/2023 [...] tablet by mouth once daily. 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 (HCC) [Z79.4]01/03/2017 Pansystolic murmur [R01.1] 08/09/2023 Unspecified severe protein-calorie malnutrition*05/20/2023 Encounter Status:Closed by RADHA EITENNE on 08/24/23[facility]07-12-2024 Telephone encounter Note* Telephone Encounter - Giulia Rogel MA - 08/20/2023 10:44 AM EDT Patient called he would like an order for raysa Rogel MA [facility]07-12-2024 Miscellaneous Notes* Telephone Encounter - Giulia Rogel MA - 08/20/2023 10:44 AM EDT Patient called he would like an order for freestyle mango Giulia Lisa, MA documented in this encounterKindred Healthcare07-08-2024 Telephone encounter Note * Telephone Encounter - Andrew Ponce MA - 08/16/2023 2:21 PM EDT Pt. Notified. Reminder placed. Andrew Ponce MA [facility]07-08-2024 Telephone encounter Note* Telephone Encounter - Andrew Ponce MA - 08/16/2023 2:21 PM EDT ----- Message from Marianna Wagner APRN.GAMEWELL OPERATOR sent at 08/16/2023 2:14 PM EDT ----- A1C has improved to 6.8 which is considered controlled. Continue current medications. Recheck in 6 months. [facility]07-08-2024 Miscellaneous Notes* Telephone Encounter - Andrew Ponce MA - 08/16/2023 2:21 PM EDT Pt. Notified. Reminder placed. Andrew Ponce MA * Telephone Encounter - Andrew Ponce MA - 08/16/2023 2:21 PM EDT ----- Message from Mairanna Wagner APRN.GAMEWELL OPERATOR sent at 08/16/2023 2:14 PM EDT ----- A1C has improved to 6.8 which is considered controlled. Continue current medications. Recheck in 6 months. documented in this encounterKindred Healthcare07-05-2024 Telephone encounter Note * Telephone Encounter - Suzi Haynes MA - 08/13/2023 9:27 AM EDT Patient informed of results, recommendations and scripts sent in. Patient states he does not use [facility] he uses [facility] in [place] and would like scripts resent. Also patient states he does not take any supplements with vitamin B12. Please advise. Suzi Haynes MA [facility]07-05-2024 Miscellaneous Notes* Telephone Encounter - Suzi Haynes MA - 08/13/2023 9:27 AM EDT Patient informed of results, recommendations and scripts sent in. Patient states he does not use [facility] he uses [facility] in [place] and would like scripts resent. Also patient [...] not with Lisinopril. Will forward this to home care manager since he is a complicated case. documented in this encounterKindred Healthcare07-03-2024 Telephone encounter Note * Telephone Encounter - [...] not with Lisinopril. Will forward this to home care manager since he is a complicated case. [facility]07-01-2024 Instructions* Patient Instructions* Marianna Wagner APRN.CNP - 08/09/2023 1:37 PM EDT [facility] [address] [place] [address] Appointment: [phone] Desk: [phone] documented in this encounterKindred Healthcare07-01-2024 NoteHNO ID: [id number] Author: MARIANNA WAGNER APRN.CNP Service: ? Author Type: Nurse Practitioner Type: Progress Notes Filed: 08/13/2023 12:57 Note Text: [facility] Marianna Wagner APRN-GAMEWELL OPERATOR [address] [place] [address] Dept Dept. Visit Date: August 09, 2023 Mr.Steven Melendrez Date of : 1960 MRN/E #: [id number] Chief Complaint: Patient presents with: Establish Care: Previous pt. Of dr. Young at [facility]. Think he may have a seizure or stoke. Went to intermediate for 5 week. (Alexy hart in [facility]) Diarrhea: X 2 months. BM is orange [...] lbs. Was 165 lbs prior to the intermediate in June. Has frequent nausea and vomiting. Has a low appetite Unsure of what his last A1C was BS are either really high or low. Has a freestyle mango. Taking Lantus insulin. No meal time insulin. Taking Farxiga and Metformin (has been on that for awhile). Was supposed to follow with a soft sugar cutter Hx of aortic valve replacement Had a congenital aortic aneurysm Has a pacemaker Has had heart attack He is not following with any specialists right now. States he either had a seizure or stroke and was placed in the hospital and then went to a intermediate for 5 weeks. 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 Started smoking [...] MEDICAL HISTORY Diagnosis Date Anxiety Aortic aneurysm (HCC) S/P Repair Aortic aneurysm (HCC) Aortic valve disorder S/P Replacement CAD (coronary artery disease) nonobstructive Coronary artery disease Depression Diabetes mellitus, type II ([facility]) Insulin dependent Hx of ascending aorta repair Hyperlipidemia Hypertension Non-ST elevation NE (NSTEMI) ([facility]) 06/24 NSTEMI (non-ST elevated myocardial infarction) ([facility]) Pacemaker Pacemaker Paroxysmal atrial fibrillation ([facility]) RBBB (right bundle branch block) S/P aortic valve replacement St. Wero mechanical Syncope Tachy-fernando syndrome ([facility]) Tachy-fernando syndrome ([facility]) Tobacco abuse chronic Tobacco user Type 2 diabetes mellitus ([facility]) PAST SURGICAL HISTORY Procedure Laterality Date ABD AORTIC ANEURYSM REPAIR ASCENDING AORTA GRAFT W/AORTIC ROOT CORONARY ARTERY BYPASS GRAFT HX 2016 2006 HEART CATHETERIZATION 06/24/2016 HEART VALVE REPLACEMENT [...] mg. jiménez (more content not included)...[facility]07-01-2024 History of Present illness Narrative* Marianna Wagner APRN.GAMEWELL OPERATOR - 08/09/2023 1:13 PM EDT Images from the original note were not included. [facility] Marianna Ruizshaina WAXER OPERATOR-GAMEWELL OPERATOR [address] [place] [address] Dept Dept. Visit Date: August 09, 2023 Mr.Steven Melendrez Date of : 1960 MRN/E #: [id number] Chief Complaint: Patient presents with: Establish Care: Previous pt. Of dr. Young at [facility]. Think he may have a seizure or stoke. Went to intermediate [facility] week. [facility] Diarrhea: X 2 months. BM is orange [...] lbs. Was 165 lbs prior to the intermediate in June. Has frequent nausea and vomiting. Has a low appetite Unsure of what his last A1C was BS are either really high or low. Has a freestyle mango. Taking Lantus insulin. No meal time insulin. Taking Farxiga and Metformin (has been on that for awhile). Was supposed to follow with a soft sugar cutter Hx of aortic valve replacement Had a congenital aortic aneurysm Has a pacemaker Has had heart attack He is not following with any specialists right now. States he either had a seizure or stroke and was placed in the hospital and then went to a intermediate for 5 weeks. 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 Started smoking [...] MEDICAL HISTORY Diagnosis Date Anxiety Aortic aneurysm (HCC) S/P Repair Aortic aneurysm ([facility]) Aortic valve disorder S/P Replacement CAD (coronary artery disease) nonobstructive Coronary artery disease Depression Diabetes mellitus, type II ([facility] [facility]) Insulin dependent Hx of ascending aorta repair Hyperlipidemia Hypertension Non-ST elevation NE (NSTEMI) ([facility]) 06/24 NSTEMI (non-ST elevated myocardial infarction) ([facility]) Pacemaker Pacemaker Paroxysmal atrial fibrillation ([facility]) RBBB (right bundle branch block) S/P aortic valve replacement [facility] mechanical Syncope Tachy-fernando syndrome ([facility]) Tachy-fernando syndrome ([facility]) Tobacco abuse chronic Tobacco user Type 2 diabetes mellitus ([facility]) PAST SURGICAL HISTORY Procedure Laterality Date ABD [...] by mouth twice daily with meals. Insulin Carson, Disposable, (NORBERTO PEN NEEDLE) 32 gauge x [...] 09, 2023 1:13 PM documented in [facility]24 Discharge summary Author Refugio Rojas [facility] May 20, 2023 9:40am Note Date/Time May 20, 2023 9:3 0am [facility] Medical Records Department [address] [place] [address] Transfer to [facility] MR#: [id number] Acct: [id number] Name: ANALILIA MELENDREZ Rep #:[id number] : 1960 62 From: Refugio Rod PCP: Andreas Pathak, ALAN Ball tus:ADM IN Certification of patient admission REQUIRED AT TIME OF ADMISSION. I CERTIFY THAT POST-HOSPITAL ECF SERVICES ARE REQUIRED TO BE GIVEN ON AN IN-PATIENT BASIS BECAUSE OF THE ABOVE NAMED PATIENT'S NEED FOR SENIOR LIVING CARE ON A CONTINUING BASIS FOR THE CONDITION(S) FOR WHICH HE/SHE WAS RECEIVING IN-PATIENT HOSPITAL SERVICES PRIOR TO HIS/HER TRANSFER TO THE ECF. 05/20/23 0940<Electronically signed by Refugio Rojas MD> [...] start patient on norepinephrine. Consult placed to deputy k 9 05/16: Sepsis has resolved. 2. Chronic alcohol dependence with acute alcohol withdrawal ? Admitted to regular nursing floor managed with phenobarb taper.? Patient progressed being monitored with [facility] protocol 05/16: Earlier phenobarbital discontinued as patient [...] furosemide 40 mg IV daily yesterday by patient biller. BMP from today pending. 4. Mild hyponatremia [...] - Requested for PT OT eval and psychologist social to assist with discharge planning 18. Anasarca with moderate chronic protein calorie malnutrition: Patient has anasarca therefore BMI is elevated 25.8 kg/m? but patient has poor skin condition with loss of subcutaneous fat and mild decreased muscle bulk in extremities and weakness at knee and hip joints 4/5. Therefore I agree that patient has moderate [...] Refugio Rojas Primary Care Provider: Andreas Pathak CLAM DREDGER Consulting Providers: Conrado Pro; Maya Melo; Conrado [...] 11RF Referrals / Follow Up: Andreas Pathak CLAM DREDGER, CLAM DREDGER-C [Primary Care Provider] - Disposition Disposition (needs filled in before D/C Order can be placed): [facility] 05/20/23 0940 <Electronically signed by Refugio Rojas MD> Cosigner Signature (if applicable): CC: ALAN Pathak; Dr. Conrado Morel MD; Dr. Conrado Pro DO; Dr. Maya Melo MD ~ [facility] Work Phone: 1(378) 726-470404-11-2024 Discharge summary Author Refugio Rojas [facility] May 20, 2023 12:37pm Note Date/Time May 20, 2023 12: 37pm [facility] Medical Records Department [address] [place] [address] Discharge Summary 05/20/23 0940 MR#: [id number] Acct: [id number] Name: ANALILIA MELENDREZ Rep #:[id number] : 1960 62 From: Refugio Rod PCP: ALAN Chahal Sta tus:ADM IN Location: [place] [address] Providers Date of Admission: 05/09/23 Date of Discharge: 05/20/23 Primary Care Physician: ALAN Chahal Consultations 05/10/23 09:57 Consult: Band Saw Runner / Pulmonary Medicine Routine Consulting Provider: Intensivists/Pulmonary Med Reason for Consult: sepsis EMERGENT Consult: No Notified: Yes Date Notified: 05/10/23 Time Notified: 09:57 Method of Notification: Text 05/13/23 08:44 Consult: Nephrology Routine Consulting Provider: Maya Melo Reason for Consult: MALIK EMERGENT Consult: No Notified: Yes Date Notified: 05/13/23 Time Notified: 08:44 Method of Notification: Text Comments:: Notified CLAM DREDGER Reason For Visit: ACUTE CYSTITIS, WITHOUT HEMATURIA [...] start patient on norepinephrine. Consult placed to deputy k 9 05/16: Sepsis has resolved. 2. Chronic alcohol dependence with acute alcohol withdrawal ? Admitted to regular nursing floor managed with phenobarb taper.? Patient progressed being monitored with [facility] protocol 05/16: Earlier phenobarbital discontinued as patient [...] furosemide 40 mg IV daily yesterday by patient biller. BMP from today pending. 05/18: On diuretic. Follow-up with patient biller in 2 weeks 4. Mild hyponatremia ? [...] - Requested for PT OT eval and psychologist social to assist with discharge planning 18. Anasarca [...] 82.4 H, Lymph % (Auto) 9.8 L, Mcdonough % (Auto) 5.6, Eos % (Auto) 0.7, [...] Refugio Rojas Primary Care Provider: Andreas Pathak CLAM DREDGER Consulting Providers: Conrado Pro; Maya Melo; Conrado [...] pacemaker and valvular heart disease) Andreas Pathak CLAM DREDGER, CLAM DREDGER-C [Primary Care Provider] - Disposition Disposition (needs filled in before D/C Order can be placed): [facility] Charges/Coding Visit Charges Inpatient E&M: 57520 Disch Hosp >30min 05/20/23 1237 <Electronically signed by Refugio Rojas MD> Cosigner Signature (if applicable): CC: ALAN Pathak; Dr. Refugio Rojas MD~ Signed [facility] Work Phone: 1([phone]) 532-485504-10-2024 Progress note Author Refugio Rojas [facility] May 19, 2023 2:23pm Note Date/Time May 19, 2023 7:3 7am [facility] Medical Records Department [address] [place] [address] Progress Note - Hospitalist 05/19/23723 MR#: [id number] Acct: [id number] Name: ANALILIA MELENDREZ Rep #:[id number] : 1960 62 From: Refugio Rod PCP: ALAN Chahal tus:ADM IN Location: [place] [address] Reason for Visit Reason for Visit: Diagnoses [...] 85.7 H, Lymph % (Auto) 7.7 L, Mcdonough % (Auto) 4.5, Eos % (Auto) 0.6, [...] start patient on norepinephrine. Consult placed to deputy k 9 05/16: Sepsis has resolved. 2. Chronic alcohol dependence with acute alcohol withdrawal ? Admitted to regular nursing floor managed with phenobarb taper.? Patient progressed being monitored with [facility] protocol 05/16: Earlier phenobarbital discontinued as patient [...] furosemide 40 mg IV daily yesterday by patient biller. BMP from today pending. 4. Mild hyponatremia [...] - Requested for PT OT eval and psychologist social to assist with discharge planning 18. Anasarca [...] x 1 Charges/Coding Visit Charges Inpatient E&M: 39121 Subs Hosp L2 05/19/23 1423 <Electronically signed by Refugio Rojas MD> Cosigner Signature (if applicable): CC: ~ Signed [facility] Work Phone: 1(779) 435-660804-09-2024 Progress note Author Maya Melo [facility] May 18, 2023 7:25pm Note Date/Time May 18, 2023 7:25 pm [facility] Medical Records Department [address] [place] [address] Progress Note - Nephrology 05/18/231922 MR#: [id number] Acct: [id number] Name: ANALILIA MELENDREZ Rep #:[id number] : 1960 62 From: Maya rivers MD PCP: Andreas Pathak, CLAM DREDGER-C Sta tus:ADM IN Location: [place] [address] Subjective Subjective No new complaints. Good urine [...] Std Deviation 61.1 H, RDW Coeff of Kalpnaa 15.9 H, Plt Count 233, MPV 11.4, Immature Gran % (Auto) 1.600 H, Neut % (Auto) 85.0 H, Lymph% (Auto) 7.8 L, Mcdonough % (Auto) 4.4, Eos % (Auto) 0.6, [...] Cosigner Signature (if applicable): CC: ~ Signed [facility] Work Phone: 1([phone]) 236-255604-09-2024 Progress note Author Maya Melo [facility] May 18, 2023 10:28am Note Date/Time May 17, 2023 10:0 7am [facility] Medical Records Department [address] [place] [address] Progress Note - Nephrology 05/17/23958 MR#: [id number] Acct: [id number] Name: ANALILIA MELENDREZ Rep #:[id number] : 1960 62 From: Estefany MAY PCP: ALAN Chahal Sta tus:ADM IN Location: [place] [address] Subjective Subjective Following for MALIK Patient resting [...] Balance 749.17 / 739.17 -417.50 / -1717.50 -2000 / -1999 Lab / Micro Data 05/17/23 [...] 83.3 H, Lymph % (Auto) 8.6 L, Mcdonough % (Auto) 4.6, Eos % (Auto) 1.1, [...] by Maya Melo MD> CC: ~ Signed [facility] Work Phone: 1(911) 439-607004-09-2024 Progress note Author Refugio Rojas [facility] May 18, 2023 8:36am Note Date/Time May 18, 2023 8:31 am [facility] Medical Records Department [address] [place] [address] Progress Note - Hospitalist 05/18/23 0828 MR#: [id number] Acct: [id number] Name: ANALILIA MELENDREZ Rep #:[id number] : 1960 62 From: Refugio Rod PCP: ALAN Chahal Sta tus:ADM IN Location: [place] [address] Reason for Visit Reason for Visit: Diagnoses [...] (Auto) 85.0 H, Lymph% (Auto) 7.8 L, Mcdonough % (Auto) 4.4, Eos % (Auto) 0.6, [...] start patient on norepinephrine. Consult placed to deputy k 9 05/16: Sepsis has resolved. 2. Chronic alcohol dependence with acute alcohol withdrawal ? Admitted to regular nursing floor managed with phenobarb taper.? Patient progressed being monitored with [facility] protocol 05/16: Earlier phenobarbital discontinued as patient [...] furosemide 40 mg IV daily yesterday by patient biller. BMP from today pending. 4. Mild hyponatremia [...] - Requested for PT OT eval and psychologist social to assist with discharge planning 18. Anasarca ? Suspected to be secondary to hypoalbuminemia given patient chronic liver disease. Patient did receive IV Lasix 80 mg x 1 Charges/Coding Visit Charges Inpatient E&M: 35949 Subs Hosp L2 05/18/23 0860 <Electronically signed by Refugio Rojas MD> Cosigner Signature (if applicable): CC: ~ Signed ADDENDUM by Dr. Refugio Rojas MD on 05/18/23 at 0835 Addendum Patient has been in antibiotic since admission 05/09/2023. Initially on ceftriaxone but was changed to Zosyn when transferred to ICU from [facility]. Zosyn then changed to cefdinir. Patient had antibiotic 9 days of antibiotics therefore we will discontinue it 05/18/23 0835<Electronically signed by Refugio Rojas MD> Cosigner Signature (if applicable): cc: ~* Signed ADDENDUM by Dr. Refugio Rojas MD on 05/18/23 at 0836 Addendum Sepsis most likely due to acute cystitis: Urine culture shows E. coli more than 100,000 colonies. Sepsis had resolved 05/18/23 0836<Electronically signed by Refugio Rojas MD> Cosigner Signature (if applicable): cc: ~* Signed [facility] Work Phone: 1(167) 919-847604-08-2024 Progress note Author Refugio Rojas [facility] May 17, 2023 9:21am Note Date/Time May 17, 2023 7:50 am [facility] Medical Records Department [address] [place] [address] Progress Note - Hospitalist 05/17/2345 MR#: [id number] Acct: [id number] Name: ANALILIA MELENDREZ Rep #:[id number] : 1960 62 From: Refugio Rod PCP: ALAN Chahal tus:ADM IN Location: [place] [address] Reason for Visit Reason for Visit: Diagnoses [...] (Auto) 82.3 H, Lymph %(Auto) 8.7 L, Mcdonough % (Auto) 5.5, Eos % (Auto) 1.2, [...] 83.3 H, Lymph % (Auto) 8.6 L, Mcdonough % (Auto) 4.6, Eos % (Auto) 1.1, [...] Catheter Urine Culture - Final Escherichia coli 04/03/24 17:50 Stool Stool Occult Blood (IBIS) - [...] start patient on norepinephrine. Consult placed to deputy k 9 05/16: Sepsis has resolved. 2. Chronic alcohol dependence with acute alcohol withdrawal ? Admitted to regular nursing floor managed with phenobarb taper.? Patient progressed being monitored with [facility] protocol 05/16: Earlier phenobarbital discontinued as patient [...] - Requested for PT OT eval and psychologist social to assist with discharge planning 18. Anasarca ? Suspected to be secondary to hypoalbuminemia given patient chronic liver disease. Patient did receive IV Lasix 80 mg x 1 Charges/Coding Visit Charges Inpatient E&M: 74581 Subs Hosp L2 05/17/23 0912 <Electronically signed by Refugio Rojas MD> Cosigner Signature (if applicable): CC: ~ Signed ADDENDUM by Dr. Refugio Rojas MD on 05/17/23 at 0921 Addendum Severe anemia hemoglobin 7.2 from last 2 days iron study shows transferrin saturation 62%. Therefore is not anemia of iron deficiency.B12 more than 2000. 05/17/23 09<Electronically signed by Refugio Rojas MD> Cosigner Signature (if applicable): cc: ~* Signed [facility] Work Phone: 1(610) 568-992104-07-2024 Progress note Author Conrado Morel [facility] May 16, 2023 9:45am Note Date/Time May 16, 2023 8:05 am [facility] Medical Records Department [address] [place] [address] Progress Note - Hospitalist 05/16/23804 MR#: [id number] Acct: [id number] Name: ANALILIA MELENDREZ Rep #:[id number] : 1960 62 From: Conrado Morel MD PCP: ALAN Chahal tus:ADM IN Location: [place] [address] Reason for Visit Reason for Visit: Diagnoses [...] start patient on norepinephrine. Consult placed to deputy k 9 ? 05/11/2023; patient remains in ICU did [...] - Requested for PT OT eval and psychologist social to assist with discharge planning 18. Anasarca [...] 35 Minutes Charges/Coding Visit Charges Inpatient E&M: 98482 Subs Hosp L2 05/16/23 0945 <Electronically signed by Conrado Morel MD> Cosigner Signature (if applicable): CC: ~ Signed [facility] Work Phone: 1([phone]) 243-468504-06-2024 Progress note Author Earnest Hamlin tr [facility] May 15, 2023 6:15pm Note Date/Time May 15, 2023 5:43 pm [facility] Medical Records Department [address] [place] [address] Progress Note - Nephrology 05/15/23 2595 MR#: [id number] Acct: [id number] Name: ANALILIA MELENDREZ Rep #:[id number] : 1960 62 From: Earnest ortiz MD PCP: ALAN Chahal Sta tus:ADM IN Location: [place] [address] Subjective Subjective Following for acute kidney injury. [...] 76.8 H, Lymph % (Auto) 10.6 L, Mcdonough % (Auto) 8.5, Eos % (Auto) 1.7, [...] Cosigner Signature (if applicable): CC: ~ Signed [facility] Work Phone: 1(331) 404-580404-06-2024 Progress note Author Conrado Morel [facility] May 15, 2023 8:55am Note Date/Time May 15, 2023 8:15 am [facility] Medical Records Department [address] [place] [address] Progress Note - Hospitalist 05/15/23 0814 MR#: [id number] Acct: [id number] Name: ANALILIA MELENDREZ Rep #:[id number] : 1960 62 From: Conrado Morel MD PCP: ALAN Chahal tus:ADM IN Location: [place] [address] Reason for Visit Reason for Visit: Diagnoses [...] Total 1470 / 1470 2242.5 / 2262.5 Output Total 1325 / 1325 1000 / [...] 76.8 H, Lymph % (Auto) 10.6 L, Mcdonough % (Auto) 8.5, Eos % (Auto) 1.7, [...] start patient on norepinephrine. Consult placed to deputy k 9 ? 05/11/2023; patient remains in ICU did [...] - Requested for PT OT eval and psychologist social to assist with discharge planning Time spent in the patient's overall evaluation,decision-making process, review of diagnostic data, adjustment of management, discussion with other providers, nursing nursing and ancillary staff involved in patient's care documentation, 35 Minutes Charges/Coding Visit Charges Inpatient E&M: 41855 Subs Hosp L2 05/15/23 0855 <Electronically signed by Conrado Morel MD> Cosigner Signature (if applicable): CC: ~ Signed [facility] Work Phone: 1(703) 996-980004-05-2024 Progress note Author Milagros Bess [facility] May 14, 2023 11:00am Note Date/Time May 14, 2023 11:0 0am [facility] Medical Records Department [address] [place] [address] Progress Note - Nephrology 05/14/23 1056 MR#: [id number] Acct: [id number] Name: ANALILIA MELENDREZ Rep #:[id number] : 1960 62 From: Milagros flanagan MD PCP: VINOD ChahalC Sta tus:ADM IN Location: [place] [address] Subjective Subjective Follow-up on acute kidney injury. He is not doing well, he is not eating, wantsto go home. Hemodynamically stable. Appears to be quite edematous. Objective Data Objective Data Vital Signs: Vital Signs Temp Pulse Resp BP Pulse Ox O2 Del Method O2 Flow Rate 97.6 F L 63 18 136/93 H 100 Bi-pap 2 05/14/23 08:59 05/14/23 10:17 05/14/23 10:17 05/14/23 08:59 05/14/23 10:17 05/14/23 08:59 [...] (Auto) 75.4 H, Lymph %(Auto) 10.3 L, Mcdonough % (Auto) 9.5, Eos % (Auto) 1.4, [...] Cosigner Signature (if applicable): CC: ~ Signed [facility] Work Phone: 1(179) 102-128704-05-2024 Consult note Author [facility]ros [facility] May 14, 2023 10:47am Note Date/Time May 13, 2023 1:09 pm [facility] Medical Records Department [address] [place] [address] Consultation - Nephrology 05/13/23 1254 MR#: [id number] Acct: [id number] Name: ANALILIA MELENDREZ Rep #:[id number] : 1960 62 From: Estefany MAY PCP: ALAN Chahal tus:ADM IN Location: [place] [address] Assessment & Plan Assessment/Plan (1) MALIK (acute kidney injury): (2) Sepsis: (3) Chronic alcohol abuse: PLAN: Plan This is a 62-year-old male with past medical history significant for hypertension, hyperlipidemia, diabetes mellitus type 2, diabetic neuropathy, history of coronary artery disease status post NE, history of mechanical aortic valve replacement converted [...] time there is no 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 Renal ultrasound did not show any evidence [...] pain. Patient was just recently admitted to [facility] from April 20 April 26 for help with alcohol detoxification, discharged to his father's home. Patient has history of hypertension, hyperlipidemia, diabetes mellitus type 2, diabetic neuropathy, history of coronary artery disease status post NE, history of mechanical aortic valve replacement converted [...] his creatinine is up to 2.85 mg/dL. PFSH Medical History AAA (abdominal aortic aneurysm) Abdominal [...] (Auto) 79.2 H, Lymph %(Auto) 7.4 L, Mcdonough % (Auto) 9.6, Eos % (Auto) 2.0, [...] <Electronically signed by Milagros Bess MD> CC: CLAM DREDGERMiahC Andreas Pathak; Dr. Conrado Pro DO; Dr. Maya Melo MD~ Signed [facility] Work Phone: 1([phone]) 707-211104-05-2024 Progress note Author Conrado Morel [facility] May 14, 2023 9:55am Note Date/Time May 14, 2023 7:34 am [facility] Medical Records Department [address] [place] [address] Progress Note - Hospitalist 05/14/23 0734 MR#: [id number] Acct: [id number] Name: ANALILIA MELENDREZ Rep #:[id number] : 1960 62 From: Conrado Morel MD PCP: ALAN Chahal tus:ADM IN Location: [place] [address] Reason for Visit Reason for Visit: Diagnoses [...] was transferred from intensive care unit to PCU the day prior. Patient appears delirious this [...] [facility]. If patient does not respond to fluid resuscitation plan will be to start patient on norepinephrine. Consult placed to deputy k 9 ? 05/11/2023; patient remains in ICU did [...] - Requested for PT OT eval and psychologist social to assist with discharge planning Time spent in the patient's overall evaluation,decision-making process, review of diagnostic data, adjustment of management, discussion with other providers, nursing nursing and ancillary staff involved in patient's care documentation, 35 Minutes Charges/Coding Visit Charges Inpatient E&M: 59605 Subs Hosp L2 05/14/23 0955 <Electronically signed by Conrado Morel MD> Cosigner Signature (if applicable): CC: ~ Signed [facility] Work Phone: 1(644) 738-701604-04-2024 Progress note Author Conrado Morel [facility] May 13, 2023 8:53am Note Date/Time May 13, 2023 8:50 am [facility] Medical Records Department [address] [place] [address] Progress Note - Hospitalist 05/13/23 0850 MR#: [id number] Acct: [id number] Name: ANALILIA MELENDREZ Rep #:[id number] : 1960 62 From: Conrado Morel MD PCP: ALAN Chahal tus:ADM IN Location: ICU CVICU20 1- Reason for Visit Reason for Visit: Diagnoses [...] (Auto) 79.2 H, Lymph %(Auto) 7.4 L, Mcdonough % (Auto) 9.6, Eos % (Auto) 2.0, [...] start patient on norepinephrine. Consult placed to deputy k 9 ? 05/11/2023; patient remains in ICU did [...] 40 Minutes Charges/Coding Visit Charges Inpatient E&M: 94168 Subs Hosp L2 05/13/23 0853 <Electronically signed by Conrado Morel MD> Cosigner Signature (if applicable): CC: ~ Signed [facility] Work Phone: 1(208) 725-548804-04-2024 Progress note Author Barry Sheehan [facility] May 13, 2023 8:28am Note Date/Time May 13, 2023 7:23 am [facility] Medical Records Department [address] [place] [address] Progress Note - Band Saw Runner 05/13/23 0721 MR#: [id number] Acct: [id number] Name: ANALILIA MELENDREZ Rep #:[id number] : 1960 62 From: Barry Sheehan DO [...] 7 g/dL. This note was generated with iKaaz dictation software. It may contain incorrectwords, spelling, [...] (Auto) 79.2 H, Lymph %(Auto) 7.4 L, Mcdonough % (Auto) 9.6, Eos % (Auto) 2.0, [...] flat affect Charges/Coding Visit Charges Inpatient E&M: 92527 Subs Hosp L2 05/13/23 0828 <Electronically signed by Barry Sheehan DO> Cosigner Signature (if applicable): CC: ~ Signed [facility] Work Phone: 1(604) 276-575704-03-2024 Progress note Author Barry Sheehan [facility] May 12, 2023 9:16am Note Date/Time May 12, 2023 6:48 am [facility] Medical Records Department [address] [place] [address] Progress Note - Band Saw Runner 05/12/23 0646 MR#: [id number] Acct: [id number] Name: ANALILIA MELENDREZ Rep #:[id number] : 1960 62 From: Barry Sheehan DO [...] gastroenterology consultation. This note was generated with iKaaz dictation software. It may contain incorrectwords, spelling, [...] Intake and Output for Last 24 Hours 04/03/0305/11/23 05/12/23 23:59 23:59 23:59 Intake Total 4333.67 [...] 82.9 H, Lymph % (Auto) 5.3 L, Mcdonough % (Auto) 8.3, Eos % (Auto) 1.9, [...] flat affect Charges/Coding Visit Charges Inpatient E&M: 37224 Subs Hosp L2 05/12/23 0916 <Electronically signed by Barry Sheehan DO> Cosigner Signature (if applicable): CC: ~ Signed [facility] Work Phone: 1(951) 764-275004-03-2024 Progress note Author Conrado Morel [facility] May 12, 2023 7:33am Note Date/Time May 12, 2023 7:17 am [facility] Medical Records Department [address] [place] [address] Progress Note - Hospitalist 05/12/23 0717 MR#: [id number] Acct: [id number] Name: ANALILIA MELENDREZ Rep #:[id number] : 1960 62 From: Conrado Morel MD PCP: Andreas Pathak, ALAN Ball tus:ADM IN Location: ICU CVICU20 1-1 Reason [...] 82.9 H, Lymph % (Auto) 5.3 L, Mcdonough % (Auto) 8.3, Eos % (Auto) 1.9, [...] start patient on norepinephrine. Consult placed to deputy k 9 ? 05/11/2023; patient remains in ICU did [...] 52 Minutes Charges/Coding Visit Charges Inpatient E&M: 47121 Subs Hosp L3 05/12/23 0733 <Electronically signed by Conrado Morel MD> Cosigner Signature (if applicable): CC: ~ Signed [facility] Work Phone: 1(412) 570-744804-03-2024 Progress note Author Iman Aguayo [facility] May 12, 2023 6:24am Note Date/Time May 12, 2023 1:57 am [facility] Medical Records Department [address] [place] [address] Progress Note - Hospitalist 05/12/23 0156 MR#: [id number] Acct: [id number] Name: ANALILIA MELENDREZ Rep #:[id number] : 1960 62 From: Iman Aguayo MD PCP: ALAN Chahal tus:ADM IN Location: ICU CVICU20 1-1 Hospitalist Note Patient lethargic, possibly component his [...] Cosigner Signature (if applicable): cc: ~* Signed [facility] Work Phone: 1(489) 599-616204-02-2024 Consult note Author Barry Sheehan [facility] May 11, 2023 9:46am Note Date/Time May 10, 2023 2:08 pm [facility] Medical Records Department [address] [place] [address] Pharmacokinetic/Renal -Consult 05/10/23 1408 MR#: [id number] Acct: [id number] Name: ANALILIA MELENDREZ Rep #:[id number] : 1960 62 From: Yuri Robbins PCP: ALAN Chahal tus:ADM IN Y Location: ICU CVICU20 1-1 Consult Antibiotic Management Pharmacy has been consulted [...] Robbins 05/11/23 0946 <Electronically signed by Barry Rod O> Nixonigner Signature (if applicable): Date Barry Sheehan DO CC: ~ Signed [facility] Work Phone: 1(736) 136-520904-02-2024 Progress note Author Barry Sheehan [facility] May 11, 2023 8:44am Note Date/Time May 11, 2023 7:22 am [facility] Medical Records Department [address] [place] [address] Progress Note - Band Saw Runner 05/11/23 0720 MR#: [id number] Acct: [id number] Name: ANALILIA MELENDREZ Rep #:[id number] : 1960 62 From: Barry Sheehan DO [...] withdrawal symptoms. This note was generated with iKaaz dictation software. It may contain incorrectwords, spelling, [...] 94.5 H, Lymph % (Auto) 2.3 L, Mcdonough % (Auto) 2.0, Eos % (Auto) 0.0, [...] 89.8 H, Lymph % (Auto) 2.4 L, Mcdonough% (Auto) 6.0, Eos % (Auto) 0.9, Baso [...] affect normal Charges/Coding Visit Charges Inpatient E&M: 45749 Subs Hosp L2 05/11/23 0844 <Electronically signed by Barry Sheehan DO> Cosigner Signature (if applicable): CC: ~ Signed [facility] Work Phone: 1(711) 154-816804-02-2024 Progress note Author Conrado Morel [facility] May 11, 2023 8:43am Note Date/Time May 11, 2023 7:27 am [facility] Medical Records Department [address] [place] [address] Progress Note - Hospitalist 05/11/23 0726 MR#: [id number] Acct: [id number] Name: ANALILIA MELENDREZ Rep #:[id number] : 1960 62 From: Conrado Morel MD [...] reason (05/09/23) Subjective Subjective Patient transferred from [facility] to ICU after being diagnosed with severe [...] 94.5 H, Lymph % (Auto) 2.3 L, Mcdonough % (Auto) 2.0, Eos % (Auto) 0.0, [...] 89.8 H, Lymph % (Auto) 2.4 L, Mcdonough% (Auto) 6.0, Eos % (Auto) 0.9, Baso [...] start patient on norepinephrine. Consult placed to deputy k 9 ? 05/11/2023; patient remains in ICU did [...] 52 Minutes Charges/Coding Visit Charges Inpatient E&M: 84192 Subs Hosp L3 05/11/23 0843 <Electronically signed by Conrado Morel MD> Cosigner Signature (if applicable): CC: ~ Signed [facility] Work Phone: 1(253) 650-240204-02-2024 Progress note Author Conrado Whitegiancarlo [facility] May 11, 2023 7:27am Note Date/Time May 10, 2023 9:56 am [facility] Medical Records Department [address] [place] [address] Progress Note - Hospitalist 05/10/23 0953 MR#: [id number] Acct: [id number] Name: ANALILIA MELENDREZ Rep #:[id number] : 1960 62 From: Conrado Morel MD [...] 92.8 H, Lymph % (Auto) 2.7 L, Mcdonough % (Auto) 3.2, Eos % (Auto) 0.0, [...] Sl. Cloudy, Urine pH 8.0, Ur Specific [place] 1.015, Urine Protein 100 H, Urine Glucose [...] 94.5 H, Lymph % (Auto) 2.3 L, Mcdonough % (Auto) 2.0, Eos % (Auto) 0.0, [...] start patient on norepinephrine. Consult placed to deputy k 9 ? 2. Chronic alcohol dependence with acute [...] Charges/Coding Multi Select Codes Hospitalists' Procedures Procedures: 68940 Critical Care 1st Hr [place] [address] Advncd Care Plan addl 30 Min 05/10/23 [...] SKIN: No Rash PSYCH; Flat affect 05/11/23 0727<Electronically signed by Conrado Morel MD> Cosigner Signature (if applicable): cc: ~* Signed [facility] Work Phone: 1(464) 426-375404-02-2024 Consult note Author Barry Aguila [facility] May 11, 2023 7:20am Note Date/Time May 10, 2023 11:3 7am [facility] Medical Records Department [address] [place] [address] Consultation - Band Saw Runner 05/10/23 1129 MR#: [id number] Acct: [id number] Name: ANALILIA MELENDREZ Rep #:[id number] : 1960 62 From: Barry Sheehan PCP: Andreas Pathak, CLAM DREDGER-Stephen Ball tus:ADM IN Location: ICU CVICU20 1-1 [...] withdrawal symptoms. This note was generated with Tirendoation software. It may contain incorrectwords, spelling, and [...] patient continues to report suprapubic abdominal discomfort. [facility] Medical History AAA (abdominal aortic aneurysm) Abdominal [...] Taken 11/11/21] dapagliflozin propanediol 10 mg tablet ([place]) 10 mg PO DAILY DIABETES 09/30/21 [History [...] 92.8 H, Lymph % (Auto) 2.7 L, Mcdonough % (Auto) 3.2, Eos % (Auto) 0.0, [...] Sl. Cloudy, Urine pH 8.0, Ur Specific [place] 1.015, Urine Protein 100 H, Urine Glucose [...] 94.5 H, Lymph % (Auto) 2.3 L, Mcdonough % (Auto) 2.0, Eos % (Auto) 0.0, [...] bolus ordered Charges/Coding Visit Charges Inpatient E&M: 02253 Init Hosp L3 05/11/23 0720 <Electronically signed by Barry Sheehan DO> Cosigner Signature (if applicable): CC: CLAM DREDGERAstrid Pathak; Dr. Alcides Tucker MD; Dr. Trenton [...] Dodge MD; Dr. Chen Merrill MD~ Signed [facility] Work Phone: 1([phone]) 999-888204-01-2024 History and physical note Author Conrado Fraser [facility] May 10, 2023 3:29am Note Date/Time May 09, 2023 8:3 7pm [facility] Medical Records Department [address] [place] [address] H&P Exam - Hospitalist 05/09/232033 MR#: [id number] Acct: [id number] Name: ANALILIA MELENDREZ Rep #:[id number] : 1960 62 From: Conrado Gonzalez DO PCP: ALAN Chahal tus:ADM [facility] - General General Date of Admission: [...] history of coronary artery disease; status post NE, history of mechanical aortic valve replacement (2015); [...] with patient offered to go to a correction facility upon discharge which he refused to so he could be discharged to his father's home whonow re-presents to [facility] ER complaining of abdominal pain. Unfortunately, [...] expected to be greater than 48 hours. [facility] Medical History AAA (abdominal aortic aneurysm) Abdominal [...] Results Lab / Micro Data 05/09/23 13:59 05/09/23 13:59 Labs: Laboratory Results - last 24 hr 05/09/23 13:59: WBC 13.0 H, RBC 3.25 L, Hgb 11.2 L, Hct 33.8 L, MCV 104.0 H, MCH34.5 H, MCHC 33.1, RDW Std Deviation 59.7 H, RDW Coeff of Kalpana 15.7 H, Plt Count 133 L, MPV 12.3 H, Immature Gran % (Auto) 0.800, Neut % (Auto) 92.8 H, Lymph % (Auto) 2.7 L, Mcdonough % (Auto) 3.2, Eos % (Auto) 0.0, [...] Sl. Cloudy, Urine pH 8.0, Ur Specific [place] 1.015, Urine Protein 100 H, Urine Glucose [...] protocol focusing mainly on phenobarbital taper. 3. Yklmz-ry-eotnscd severe protein calorie malnutrition with hypoalbuminemia of1.5 [...] (allegedly quit 10 years ago) - Check [place] urine drug screen this admission. 11. History of coronary artery disease; status post NE - Stable. Continue homeregimen as previous. 12. [...] 75 minutes. Charges/Coding Visit Charges Inpatient E&M: 71140 Init Hosp L3 05/10/23 0329 <Electronically signed by Conrado Pro DO> Cosigner Signature (if applicable): CC: ALAN Pathak; Dr. Conrado Pro DO~ Signed [facility] Work Phone: 1(231) 982-692604-01-2024 Discharge summary Author Carlos Augustin [facility] May 09, 2023 10:05pm Note Date/Time May 09, 2023 1:5 6pm [facility] Medical Records Department [address] [place] [address] Emergency Department Summary 05/09/23 MR#: [id number] Acct: [id number] Name: ANALILIA MELENDREZ Rep #:[id number] : 1960 62 From: Carlos Augustin MD PCP: ALAN Chahal Sta tus:ADM IN [place] [facility] HPI <ALAN Dick - Last Filed: 05/09/23 20:40> History of Present Illness Chief Complaint: Abd Pain Narrative Narrative: Patient is a 62-year-old male with diabetes, aortic valve replacement, hypertension, chronic alcohol abuse with chronic pancreatitis who presents to the emergency department for acute on chronic abdominal pain. Patient was recently admitted here on April 21, 2023, patient was admitted and discharged ont. Patient did go through a detox. Patient on discharge was offered to go to a correction facility secondary to the weakness as well [...] evaluation for acute on chronic abdominal pain. [facility] <ALAN Dick - Last Filed: 05/09/23 20:40> [facility] Medical History AAA (abdominal aortic aneurysm) Admitted [...] Cannula Oxygen Flow Rate (L/min) 2 MDM <Trish ValeraVINOD jovelC - Last Filed: 05/09/23 20:40> MDM Lab Data Labs: Laboratory Results - last [...] 92.8 H Lymph % (Auto) 2.7 L Mcdonough % (Auto) 3.2 Eos % (Auto) 0.0 [...] Sl. Cloudy Urine pH 8.0 Ur Specific [place]imar[place] 1.015 Urine Protein 100 H Urine Glucose [...] Comments: Sinus tachycardia, rate of 40 bpm, [place] interval 112 ms, QRS duration 100 ms, [...] Augustin MD - Last Filed: 05/09/23 17:14> [facility] Narrative Medical decision making narrative: I have [...] tenderness, no guarding or rebound tenderness. No [place] sign or Huizar Gillespie sign. No CVA [...] 92.8 H Lymph % (Auto) 2.7 L Mcdonough % (Auto) 3.2 Eos % (Auto) 0.0 [...] Sl. Cloudy Urine pH 8.0 Ur Specific [place] 1.015 Urine Protein 100 H Urine Glucose [...] Andreas Pathak NP Referrals: Andreas Pathak NP, CLAM DREDGER-C [Primary Care Provider] - Disposition Disposition: [facility] Care [facility] What to do if you have Problems For any increased pain, shortness of breath, bleeding, nausea or vomiting, chestpain, or any unexpected problems, contact your Primary Care Provider. Call [facility] ([phone]) or report to the closest Emergency Room. Call 911 if necessary. 05/09/232204 <Electronically signed by Carlos Augustin MD> Cosigner Signature (if applicable): 05/09/232039 <Electronically signed by Trish MAY> CC: ALAN Pathak ~ Signed [facility] Work Phone: 1(694) 880-763003-31-2024 Discharge summary Author Carlos Augustin [facility] May 09, 2023 10:05pm Note Date/Time May 09, 2023 1:5 6pm [facility] Medical Records Department [address] [place] [address] Emergency Department Summary 05/09/23 MR#: [id number] Acct: [id number] Name: ANALILIA MELENDREZ Rep #:[id number] : 1960 62 From: Carlos Augustin MD PCP: ALAN Chahal Sta tus:ADM IN [facility] <ALAN Dick - Last Filed: 05/09/23 20:40> History of Present Illness Chief Complaint: Abd Pain Narrative Narrative: Patient is a 62-year-old male with diabetes, aortic valve replacement, hypertension, chronic alcohol abuse with chronic pancreatitis who presents to the emergency department for acute on chronic abdominal pain. Patient was recently admitted here on April 21, 2023, patient was admitted and discharged ont. Patient did go through a detox. Patient on discharge was offered to go to a correction facility secondary to the weakness as well [...] evaluation for acute on chronic abdominal pain. [facility] <ALAN Dick - Last Filed: 05/09/23 20:40> [facility] Medical History AAA (abdominal aortic aneurysm) Admitted [...] Cannula Oxygen Flow Rate (L/min) 2 MDM <Trish Arevalo CLAM DREDGER-C - Last Filed: 05/09/23 20:40> MDM Lab Data Labs: Laboratory Results - last [...] 92.8 H Lymph % (Auto) 2.7 L Mcdonough % (Auto) 3.2 Eos % (Auto) 0.0 [...] Sl. Cloudy Urine pH 8.0 Ur Specific [place] 1.015 Urine Protein 100 H Urine Glucose [...] Comments: Sinus tachycardia, rate of 40 bpm, NJ interval 112 ms, QRS duration 100 ms, [...] Augustin MD - Last Filed: 05/09/23 17:14> [facility] Narrative Medical decision making narrative: I have [...] 92.8 H Lymph % (Auto) 2.7 L Mcdonough % (Auto) 3.2 Eos % (Auto) 0.0 [...] Sl. Cloudy Urine pH 8.0 Ur Specific [place] 1.015 Urine Protein 100 H Urine Glucose [...] Andreas Pathak NP Referrals: Andreas Pathak NP, CLAM DREDGER-Stephen [Primary Care Provider] - Disposition Disposition: [facility] What to do if you have Problems For any increased pain, shortness of breath, bleeding, nausea or vomiting, chestpain, or any unexpected problems, contact your Primary Care Provider. Call [facility] ([phone]) or report to the closest Emergency Room. Call 911 if necessary. 05/09/232204 <Electronically signed by Carlos Augustin MD> Cosigner Signature (if applicable): 05/09/232039 <Electronically signed by Trish MAY> CC: ALAN Pathak ~ Signed [facility] Work Phone: 1(230) 145-565503-18-2024 Progress note Author Ashley [facility] April 26, 2023 3:53pm Note Date/Time April 26, 2023 11: 09[facility] Medical Records Department [address] [place] [address] Progress Note 04/26/23 1105 MR#: [id number] Acct: [id number] Name: GERRIANALILIA JAMARI Rep #:[id number] : 1960 62 From: Ashley Alvarado MD PCP: ALAN Chahal Sta tus:ADM IN Location: [place] [address] Subjective Subjective Patient seen and examined. He [...] 200 / 300 100 / 100 Balance 1782.5 / 1981.5 200 / 300 100 / 100 Lab [...] Awaiting placement. Charges/Coding Visit Charges Inpatient E&M: 81024 Subs Hosp L2 04/26/23 9943 <Electronically signed by Ashley Alvarado MD> Ashley Alvarado MD Cosigner Signature (if applicable): CC: ~ Signed [facility] Work Phone: 1(235) 660-987703-17-2024 Progress note Author Ashley Alvarado [facility] April 25, 2023 2:40pm Note Date/Time April 25, 2023 11: 41[facility] Medical Records Department [address] [place] [address] Progress Note 04/25/23 1135 MR#: [id number] Acct: [id number] Name: ANALILIA MELENDREZ Rep #:[id number] : 1960 62 From: Ashley Alvarado MD PCP: ALAN Chahal Sta tus:ADM IN Location: [place] [address]-1 Subjective Subjective Patient seen and examined. He [...] Intake Total 1000 / 1000 1782.5 / 1981.5 200 / 200 Balance 1000 / 1000 1782.5 / 1981. 200 / 200 Lab / Micro Data [...] Awaiting placement. Charges/Coding Visit Charges Inpatient E&M: 69608 Subs Hosp L2 04/25/23 1440 <Electronically signed by Ashley Alvarado MD> Ashley Alvarado MD Cosigner Signature (if applicable): CC: ~ Signed [facility] Work Phone: 1(488) 474-937503-16-2024 Progress note Author [facility] April 24, 2023 4:53pm Note Date/Time April 24, 2023 11: 10am [facility] Medical Records Department [address] [place] [address] Progress Note 04/24/23 1108 MR#: [id number] Acct: [id number] Name: ANALILIA MELENDREZ Rep #:[id number] : 1960 62 From: Ashley Avlarado MD PCP: ALAN Chahal tus:ADM IN Location: [place] [address] Subjective Subjective Patient seen and examined. He [...] Awaiting placement. Charges/Coding Visit Charges Inpatient E&M: 48493 Subs Hosp L2 04/24/23 2505 <Electronically signed by Ashley Alvarado MD> Ashley Alvarado MD Cosigner Signature (if applicable): CC: ~ Signed [facility] Work Phone: [phone]) 615-762903-15-2024 Progress note Author Ashley Cox Northjessica [facility] April 23, 2023 3:29pm Note Date/Time April 23, 2023 3:2 1pm [facility] Medical Records Department [address] [place] [address] Progress Note 04/23/23 1519 MR#: [id number] Acct: [id number] Name: ANALILIA MELENDREZ Rep #:[id number] : 1960 62 From: Ashley Alvarado MD PCP: Andreas Pathak, CLAM DREDGERAstrid Sta tus:ADM IN Location: [place] CQ207-9 Subjective Subjective Patient seen and examined. She [...] on board. Charges/Coding Visit Charges Inpatient E&M: 75776 Subs Hosp L2 04/23/23 152 <Electronically signed by Ashley Alvarado MD> [facility] Signature (if applicable): CC: ~ Signed [facility] Work Phone: 1(267) 322-848503-15-2024 Consult note Author Yuri Robbins [facility] April 23, 2023 11:46am Note Date/Time April 23, 2023 11: 46am [facility] Medical Records Department [address] [place] [address] Counseling Note - Pharmacy 04/23/23 1146 MR#: [id number] Acct: [id number] Name: ANALILIA MELENDREZ JAMARI Rep #:[id number] : 1960 62 From: Yuri Robbins PCP: ALAN Chahal tus:ADM IN Y Location: [place] [address] Pharmacy [place] Med Recon[place] Pharmacy Service has performed discharge [...] signed by Yuri verdugo> Date _ Yuri Lyman Signature (if applicable): Date CC: ~ Signed [facility] Work Phone: 1(684) 591-458503-15-2024 Consult note Author Yuri Robbins [facility] April 23, 2023 11:45am Note Date/Time April 23, 2023 11: 45am [facility] Medical Records Department [facility] [place] [address] Counseling Note - Pharmacy 04/23/23 1145 MR#: [id number] Acct: [id number] Name: ANALILIA MELENDREZ Rep #:[id number] : 1960 62 From: Yuri Robbins PCP: ALAN Chahal tus:ADM IN Y [facility] [place] Med [facility] Pharmacy Service has performed discharge [...] Signature (if applicable): Date CC: ~ Signed [facility] Work Phone: 1(315) 748-423903-15-2024 Discharge summary Author Ashley Alvarado [facility] April 23, 2023 11:44am Note Date/Time April 23, 2023 11: 40am [facility] Medical Records Department [address] [place] [address] Instructions for Home/Discharge Instructions 04/23/23 1139 MR#: [id number] Acct: [id number] Name: ANALILIA MELENDREZ Rep #:[id number] : 1960 62 From: Ashley Alvarado MD PCP: ALAN Chahal tus:ADM IN Discharge Instructions Diet Discharge Diet: [...] Attending Provider: Ashley Alvarado Primary Care Provider: nAdreas Pathak NP Consulting Providers: Lucas Frausto Instructions [...] Referrals / Follow Up: Andreas Pathak NP, SUSAN-C [Primary Care Provider] - Within 1 Week Disposition Disposition (needs filled in before D/C Order can be placed): Home, Self Care 04/23/23 1144<Electronically signed by Ashley Alvarado MD>Ashley Alvarado MD CC: ALAN Pathak; Dr. Lucas Frausto MD ~ Signed [facility] Work Phone: 1([phone]) 664-609003-14-2024 Progress note Author [facility] April 22, 2023 3:41pm Note Date/Time April 22, 2023 11: [address] [place] [address] Health System Medical Records Department [address] [place] [address] Progress Note 04/22/23 1112 MR#: [id number] Acct: [id number] Name: ANALILIA MELENDREZ Rep #:[id number] : 1960 62 From: Ashley Alvarado MD PCP: ALAN Chahal Sta tus:ADM IN Location: [place] [address] Subjective Subjective Patient seen and examined. He [...] Clarity Clear, Urine pH 8.0, Ur Specific [place] 1.015, Urine Protein 15 H, Urine Glucose [...] Encourage ambulation. Charges/Coding Visit Charges Inpatient E&M: 03314 Subs Hosp L2 04/22/23 1548 <Electronically signed by Ashley Alvarado MD> Ashley Alvarado MD Cosigner Signature (if applicable): CC: ~ Signed [facility] Work Phone: [phone]) [phone] Progress note Author Ashley Cox [place] [facility] April 21, 2023 4:06pm Note Date/Time April 21, 2023 2:5 4pm [facility] Medical Records Department [address] [place], [place] [address] [address] Progress Note 04/21/23 9529 MR#: [id number] Acct: [id number] Name: ANALILIA MELENDREZ Rep #:[id number] : 1960 62 From: Ashley Alvarado MD PCP: ALAN Chahal tus:ADM IN Location: [place] HU183-4 Subjective Subjective Patient seen and examined. HE [...] 76.5 H, Lymph % (Auto) 11.2 L, Mcdonough % (Auto) 10.2 H,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 [facility] Work Phone: Discharge summary Author Chris Aragon [facility] Note Date/Time July 06, 2024 10:54 am [facility] Medical Records Department [address] [place], [place] [address]giancarlo [place] [address] Instructions for Home/Discharge Instructions 07/06/24 1037 MR#: [id number] Acct: [id number] Name: ANALILIA MELENDREZ Rep #:[id number] : 1960 63 From: Chris de la cruz DO PCP: Marianna Wagner NP-C Status:ADM I N Discharge Instructions Diet Discharge [...] of your medication changes. Follow-up with the soft sugar cutter soon to discuss further evaluation foryour aortic [...] Referrals / Follow Up: Marianna Wagner NP, CLAM DREDGER-C [Primary Care Provider] - Disposition Disposition (needs filled in before D/C Order can be placed): Home, Self Care 07/06/24 1054<Electronically signed by Chris Aragon DO>Chris Aragon DO CC: ALAN Wagner; Dr. Conrado Pro DO; Dr. Yaneli Carbone MD; Dr. Melonie De La Rosa DO ~ Signed [facility] Work Phone: Discharge summary Author Chris Aragon [facility] Note Date/Time July 06, 2024 10:59 am [facility] Medical Records Department [address] [place] [address] Discharge Summary 07/06/24 1038 MR#: [id number] Acct: [id number] Name: ANALILIA MELENDREZ Rep #:[id number] : 1960 63 From: Chris de la cruz DO PCP: ALAN Wilde Status:ADM I N Location: [place] [address] Providers Date of Admission: 06/30/24 Date of Discharge: 07/06/24 Primary Care Physician: ALAN Wilde Consultations 07/02/24 11:50 Consult: Gastroenterology Routine Consulting Provider: [facility] Reason for Consult: PKTY- LIVER DZ [...] mg PO BID reflux #60 tabs 06/27/23 [id number]-cddatht 24,000-76,000-120,000 unit capsule,delayed rel (Creon) 1cap PO [...] is a 63-year-old male who presented to [facility] ED on 06/30/2024 with worsening abdominal pain and distention. Hospital course as noted below. Patient discharged home in stable condition on 07/06. 1. New onset HFrEF, acute hypoxia with bilateral pleural effusions, moderate tosevere bioprosthetic aortic valve stenosis ? Cardiology followed. History of bioprosthetic valve replacement in 2017 [...] Antibody < 0.2, Sm (Khalil) Antibody <0.2, RN SURGERY ICU Antibody <0.2, Scl-70 Scleroderma Ab <0.2, Double [...] of your medication changes. Follow-up with the soft sugar cutter soon to discuss further evaluation foryour aortic [...] Referrals / Follow Up: Marianna Wagner NP, CLAM DREDGER-C [Primary Care Provider] - Disposition Disposition (needs filled in before D/C Order can be placed): Home, Self Care Charges/Coding Visit Charges Inpatient E&M: 06319 Disch Hosp >30min 07/06/24 1059 <Electronically signed by Chris Aragon DO> Cosigner Signature (if applicable): CC: ALAN Wagner; Dr. Chris Aragon DO~ Signed [facility] Work Phone: Evaluation + Plan note Future Appointments Appointment Date:04/18/2021 08:20:00 AM Scheduled Provider:ANDREAS PATHAK APRN, CNP Location:[facility] Appointment Type: OV Future Scheduled Tests Laboratory* Prostate Specific [...] XR Spine Lumbar W/Obliques 4 Views 02/17/21 [facility] Evaluation + Plan note Future Appointments Appointment Date:07/11/2021 08:40:00 AM Scheduled Provider:ANDREAS PATHAK APRN, CNP Location:[facility] Appointment Type:PC OV Follow Up Appointment Date:10/14/2021 08:00:00 AM Scheduled Provider:ANDREAS PATHAK APRN, CNP Location:[facility] [...] XR Spine Lumbar W/Obliques 4 Views 02/17/21 [facility] Evaluation + Plan note Future Appointments Appointment Date:08/07/2021 08:40:00 AM Scheduled Provider:ANDREAS PATHAK APRN, CNP Location:[facility] Appointment Type:PC OV Appointment Date:10/14/2021 08:00:00 AM Scheduled Provider:ANDREAS PATHAK APRN, CNP Location:[facility] [...] XR Spine Lumbar W/Obliques 4 Views 02/17/21 [facility] Evaluation + Plan note Future Appointments Appointment Date:05/25/2022 09:40:00 AM Scheduled Provider:ANDREAS PATHAK APRN, CNP Location:[facility] Appointment Type:PC OV Follow Up Future [...] Panel 09/08/21 Radiology* XR Upper GI 05/04/22 [facility] Evaluation + Plan note Future Appointments Appointment Date:07/02/2022 01:00:00 PM Scheduled Provider: Location:[facility] Appointment Type:DB Diabetic Individual Visit (AOH) Diagnostic [...] Panel 09/08/21 Radiology* XR Upper GI 05/26/22 [facility] Evaluation + Plan note Future Appointments Appointment [...] TIBC 01/02/23 Radiology* XR Upper GI 05/26/22 [facility] Evaluation + Plan note Future Appointments Appointment Date:01/04/2023 01:40:00 PM Scheduled Provider:ANDREAS PATHAK APRN, CNP Location:[facility] Appointment Type:PC OV Follow Up Future Scheduled [...] Complete Metabolic Panel 10/19/21 * TIBC 01/02/23 [facility] Evaluation + Plan note Future Appointments Appointment Date:11/13/2022 01:00:00 PM Scheduled Provider: Location:[facility] Appointment Type:NUT Diet Visit Individual Appointment Date:11/13/2022 02:00:00 PM Scheduled Provider: Location:[facility] Appointment Type:DB Diabetic Individual Visit (AOH) Appointment Date:01/04/2023 01:40:00 PM Scheduled Provider:ANDREAS PATHAK APRN, CNP Location:[facility] Appointment Type:PC OV Follow Up Future [...] Complete Metabolic Panel 01/02/23 * TIBC 01/02/23 [facility] Evaluation + Plan note Future Appointments Appointment [...] Radiology* US Elastography Liver w/ABD Complete 03/05/23 [facility] Evaluation note* Diagnosis Onset Date Resolution Status Chest pain acute [facility] Work Phone: Evaluation note* Diagnosis Onset Date Resolution Status Chest pain resolved [facility] Work Phone: Evaluation note* Diagnosis Onset Date Resolution Status Chest pain resolved Alcohol intoxication acute [facility] Work Phone: Evaluation note* Diagnosis Onset Date Resolution Status Chest pain resolved Alcohol dependence acute Alcohol withdrawal acute Tremors of nervous system [place] [facility] Work Phone: Evaluation note* Diagnosis Onset Date Resolution Status Non-sustained ventricular tachycardia acute Cardiac pacemaker in situ 2017 ch ronic Sick sinus syndrome chronic [facility] Work Phone: Evaluation note* Diagnosis Onset Date Resolution Status Non-sustained ventricular tachycardia acute Cardiac pacemaker in situ 2017 ch ronic Sick sinus syndrome chronic Acute hypokalemia acute ETOH abuse acute History of diabetes mellitus acute Hx of hypercholesterolemia a cute Hypokalemia acute Withdrawn from alcohol detoxification program acute Diabetes mellitus, type II c hronic HTN (hypertension) chronic Tobacco use chronic [facility] Work Phone: Evaluation note* Diagnosis Onset Date Resolution Status Acute hypokalemia acute ETOH abuse acute HTN (hypertension) chronic Hypokalemia resolved ETOH abuse acute Alcohol withdrawal resolved Desire for detoxification re solved Acute hypokalemia acute Alcohol withdrawal acute Desire for detoxification [place] ETOH abuse acute Nausea & vomiting acute [facility] Work Phone: Evaluation note* Diagnosis Onset Date Resolution Status Alcohol withdrawal resolved Nausea & vomiting resolved Acute dehydration acute Admitted to alcohol detoxification center acute Alcohol abuse acute Alcohol withdrawal acute History of diabetes mellitus acute [facility] Work Phone: Evaluation noteNo assessment information available [facility] Work Phone: evaluation note* Diagnosis Onset Date Resolution Status Abdominal ascites acute Alcohol abuse acute Alcohol dependence acute Alcoholic hepatitis acute Gastric wall thickening acut e Chronic pancreatitis chronic [facility] Work Phone: Evaluation note* Diagnosis Onset Date Resolution Status Acute cystitis without hematuria acute Acute UTI acute Alcohol withdrawal acute Chronic pancreatitis due to chronic alcoholism acute Hypoxia acute Intractable abdominal pain a cute Medically noncompliant acute Pleural effusion acute Protein-calorie malnutrition, severe acute Chronic alcohol abuse chroni c [facility] Work Phone: Evaluation note* Diagnosis Onset Date Resolution Status Acute cystitis without hematuria acute Acute UTI acute MALIK (acute kidney injury) [place] Alcohol withdrawal acute Chronic pancreatitis due to chronic alcoholism acute Hypoxia acute Intractable abdominal pain a cute Medically noncompliant acute Pleural effusion acute Protein-calorie malnutrition, severe acute Sepsis acute Chronic alcohol abuse chroni c HTN (hypertension) [facility] Work Phone: Evaluation note* Diagnosis Anemia, unspecified type- Primary [facility]* Diagnosis Type 2 diabetes mellitus with [...] specified viral diseases [facility] Diagnosis Diarrhea of presumed infectious origin- Primary Generalized abdominal pain Abdominal pain, generalized [facility] Diagnosis Anemia, unspecified type- Primary Chronic diarrhea Diarrhea [facility]* Diagnosis Generalized abdominal pain- Primary Abdominal [...] Tobacco use disorder [facility] Diagnosis 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 difficile diarrhea Intestinal infection due to clostridium difficile E. coli UTI Urinary tract infection, site not specified [facility] Diagnosis Generalized abdominal pain Abdominal pain, generalized Diarrhea of presumed infectious origin Weight loss Loss of weight Anemia, unspecified type History of alcohol abuse Nondependent alcohol abuse, in remission Elevated liver enzymes Other nonspecific abnormal serum enzyme levels documented in this encounter [facility] note* Diagnosis E. 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) Medically complex patient Unspecified conditions influencing health status Anemia, unspecified type documented in this encounter [facility] note* Diagnosis Anemia, unspecified type- Primary Diarrhea of presumed infectious origin CKD stage 3 secondary to diabetes ([facility]) Medically complex patient Unspecified conditions influencing health status documented in this encounter [facility] note* Diagnosis Diarrhea, unspecified type Acute pancreatitis, unspecified complication status, unspecified pancreatitis type documented in this encounter [facility] note* Diagnosis Diarrhea, unspecified type- Primary Acute pancreatitis, unspecified complication status, unspecified pancreatitis type documented in this encounter [facility] note* Diagnosis Diarrhea, unspecified type Acute pancreatitis, unspecified complication status, unspecified pancreatitis type documented in this encounter [facility] note* Diagnosis Anemia, unspecified type- Primary Weight loss Loss of weight Chronic pancreatitis, unspecified pancreatitis type ([facility]) Epigastric pain Abdominal pain, epigastric Right lower quadrant abdominal pain Abdominal pain, right lower quadrant [facility]* Diagnosis Primary hypertension- Primary Unspecified essential hypertension Type 2 diabetes mellitus with complication, with long-term current use of insulin ([facility]) Stage 3 chronic kidney disease, unspecified whether stage 3a or 3b CKD ([facility]) Hyperlipidemia, mixed Mixed hyperlipidemia Gastroesophageal reflux disease, unspecified whether esophagitis present Chronic pancreatitis, unspecified pancreatitis type ([facility]) Anemia, unspecified type documented in this encounter [facility] note* Diagnosis Anemia, unspecified type documented in this encounter [facility] note* Diagnosis Anemia, unspecified type- Primary [facility]* Diagnosis Gastroesophageal reflux disease, unspecified whether esophagitis present documented in this encounter [facility] note* Diagnosis Type 2 diabetes mellitus with complication, with long-term current use of insulin (HCC)- Primary Hyperlipidemia LDL goal <100 Other and unspecified hyperlipidemia Primary hypertension Unspecified essential hypertension documented in this encounter [facility] note* Diagnosis Type 2 diabetes mellitus with complication, with long-term current use of insulin (HCC) [facility]* Diagnosis Anemia, unspecified type Weight loss Loss of weight Chronic pancreatitis, unspecified pancreatitis type (HCC) Epigastric pain Abdominal pain, epigastric documented [facility]* Diagnosis Hyperlipidemia LDL goal <100 Other and unspecified hyperlipidemia Primary hypertension Unspecified essential hypertension documented in this encounter [facility] note* Diagnosis Anemia, unspecified type- Primary 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) documented in this encounter [facility] note* Diagnosis Primary hypertension Unspecified essential hypertension documented in this encounter [facility] note* Diagnosis Primary hypertension Unspecified essential hypertension Gastroesophageal reflux disease, unspecified whether esophagitis present documented in this encounter [facility] note* Diagnosis Onset Date Resolution Status Admit Date Adverse drug reaction acute June 25, 2024 10:15pm Ascites due to alcoholic cirrhosis acute June 25, 2024 1 0:15pm Hypokalemia acute June 25 10:15pm Lactic acidosis acute June 25, 2024 10:15pm Chronic alcohol abuse chronic June 25, 2024 10:15pm Chronic diarrhea chronic June 10:15pm [facility] Work Phone: Evaluation note* Diagnosis Chronic diarrhea Diarrhea Irritable bowel syndrome, unspecified type Hyperlipidemia LDL goal <100 Other and unspecified hyperlipidemia documented in this encounter [facility] note* Diagnosis Primary hypertension Unspecified essential hypertension [facility]. Aguayo [facility] March 21, 2022 6:31pm Note Date/Time March 21, 2022 6:06pm [facility] Medical Records Department [address] [place] [address] H&P Exam - Hospitalist 03/21/22 1831 MR#: [id number] Acct: [id number] Name: SAURAVJEREMIAHANALILIA JAMARI Rep #:[id number] : 1960 61 From: Iman Aguayo MD PCP: ALAN Chahal tus:ADM IN [facility] - General General Date of Admission: [...] recently 02/01/22 who now re-presents to the [facility] ED on 03/21/22 with history of [...] alcohol upon requested evaluation, POC glucose 337. [facility] Medical History Acute hypokalemia Adrenal nodule Alcohol [...] recently 02/01/22 who now re-presents to the [facility] ED on 03/21/22 with history of [...] 75 minutes. Charges/Coding Visit Charges Inpatient E&M: 08647 Init Hosp L3 03/21/22 1831 <Electronically signed by Iman Aguayo MD> Cosigner Signature (if applicable): CC: CLAM DREDGERAstrid Pathak; Dr. Iman Aguayo MD~ Signed [facility] Work Phone: History and physical note Author Melonie De La Rosa [facility] Note Date/Time July 11, 2024 3:21p m [facility] Medical Records Department [address] [place] [address] H&P Exam - Hospitalist 07/11/24 1405 MR#: [id number] Acct: [id number] Name: DARRINJANEENANALILIA Rep #:[id number] : 1960 63 From: Melonie De La Rosa DO PCP: ALAN Wilde Status:REG E R Location: ED HPI - General General Date of Admission: 07/11/24 Date of Service: 07/11/24 Chief Complaint: Suicidal ideation/nausea vomiting HPI Narrative ANALILIA MELENDREZ, is a 63 M who presented to the emergency department at [facility] on 07/11/2024 with a chief complaint [...] discussed with Dr. Fontanez prior to admission. [facility] Medical History Thrombocytopenia Chronic pancreatitis Macrocytosis associated [...] reflux #60 tabs 06/27/23 Unknown Rx release [id number]-[id number] 1 cap PO TIDCM #90 caps 06/09 [...] Clarity Clear, Urine pH 8.0, Ur Specific [place] 1.010, Urine Protein 15 H, Urine Glucose [...] 74.9 H, Lymph % (Auto) 15.4 L, Mcdonough % (Auto) 7.7, Eos % (Auto) 0.4, [...] pleural effusion with compressive atelectasis. Reading Location: [facility] Assessment & Plan Assessment/Plan (1) Abdominal pain: [...] need ALBERT and probable referral to a [facility] - Outpatient follow-up here with cardiology [...] Had thoracic dissection and was treated at [facility] History of heroin abuse - Remote [...] Full code Charges/Coding Visit Charges Inpatient E&M: 24234 Init Hosp L2 07/11/24 1521 <Electronically signed by Melonie De La Rosa DO> Cosigner Signature (if applicable): CC: ALAN Wagner; Dr. Melonie De La Rosa DO~ Signed [facility] Work Phone: History and physical note Author Trish Vila [facility] Note Date/Time August 29, 2024 12:3 3am [facility] Medical Records Department [address] [facility] [place] [address] History & Physical Exam 08/29/24 0019 MR#: [id number] Acct: [id number] Name: ANALILIA MELENDREZ Rep #:[id number] : 1960 64 From: Trish Vila MD PCP: Sigrid Call DO Status:REG ER Location: ED HPI - General General Date of Admission: 08/29/24 Date of Service: 08/29/24 Chief Complaint: Shortness of breath HPI Narrative ANALILIA MELENDREZ, is a 64 M who presents to the emergency room with chief complaint of shortness of breath. Patient has significant past medical history of liver cirrhosis with ascites has been drained 4 times once a month for the last 4 months but has not been done this month yet. Patient also has a history of anemia, ascites and alcohol abuse, pancreatitis, NE, diabetes, aortic valve replaced with a bovine valve for which she is not on blood thinners. Patient complains of increasing shortness of breath over the last several days with leg swelling, he denies any chest pain no coughing or fevers. Patient is not on oxygen at home but is requiring oxygen to maintain a saturation greater than 90%here in the hospital. Laboratory studies show a white blood cell count of 4.8, hemoglobin 10.1, hematocrit 31.6, platelets 181, sodium 137, potassium low at 3.1, chloride 102, bicarb 21.9, BUN 8, creatinine 1.1, glucose 369, troponin 67,troponin 57, urinalysis was negative chest x-ray shows bilateral pleural effusions. CT angiogram was done in late July and was negative for pulmonary embolism at that time and probability for a new PE at that time was considered low therefore another CT angiogram was not done at this time. Patient was scheduled to go home from the emergency room but due to hypoxia and need for oxygen he will be admitted here in the hospital. [facility] Medical History Malnutrition Pancytopenia Medically noncompliant Thrombocytopenia [...] 100 mg 100 mg PO DAILYCM vit apdilla #0 tabs 05/20/23 07/31/24 Rx tablet (Vitamin B-1) pantoprazole 40 mg tablet,delayed 40 mg PO BID reflux #60 tabs 06/27/23 07/31/24 Rx release ferrous sulfate 325 mg (65 mg 325 mg PO DAILY suppleme nt 06/30/24 07/31/24 History iron) tablet (FeroSul) metoprolol succinate 25 mg 12.5 mg (1/2 x 25 mg) PO DA RASHEED 07/06/24 07/31/24 Rx tablet,extended release 24 hr blood pressure 30 days # 15 tabs spironolactone 25 mg tablet 25 mg PO DAILY diuretic 30 days 07/06/24 07/31/24 Rx #30 tabs L.acidophil,salivari-Bifido 1 cap PO BID Probiotic 07/31/24 History bifidum-Strep thermoph 175 mg capsule furosemide 20 mg tablet 40 mg (2 x 20 mg) PO DAILY 3 0 days 08/03/24 Unknown Rx #60 tabs sacubitril 24 mg-valsartan 26 mg 1 tab PO BID #60 tabs 08/03/24 Unknown Rx tablet (Entresto) cnxcmk-qtggqkzy-qplbotl 1 cap PO BIDCM 08/29/24 Unkn own History 24,000-76,000-120,000 unit capsule,delayed rel (Creon) Allergy/AdvReac Type Severity Reaction Status Date / Time No Known Allergies Allergy Verified 08/01/24 22:20 Family History Father CAD (coronary artery disease) Mother Dementia Surgical History History of aortic aneurysm repair (~2016) H/O cardiac catheterization History of cataract surgery History of hernia repair History of aortic valve replacement with bioprosthetic valve (~2016) H/O aortic valve replacement Social History household members: family housing: house Smoking Status: Light Smoker (<10/day) alcohol intake: current alcohol intake frequency: 0-2 drinks per day details: Reports currently ~ 2 tall boys daily. substance use type: former substance user caffeine: Yes Type: coffee Number of servings: 3 ROS Constitutional Constitutional: Denies chills or fever(s) Eyes Eyes: Denies blurry vision ENT HEENT: Denies abnormal hearing Cardiovascular Cardiovascular: Denies chest pain Respiratory/Chest Respiratory/Chest: Reports shortness of breath at rest Gastrointestinal Gastrointestinal: Reports abdominal pain Genitourinary Genitourinary: Denies dysuria Musculoskeletal Musculoskeletal: Denies back pain Integumentary Integumentary: Reports dry skin Neurologic Neurologic: Denies abnormal speech Psychiatric Psychiatric: Denies anxiety Vital Signs Vital Signs Vital Signs: 08/28/24 17:46 08/28/24 17:51 08/28/24 18:42 Temperature 97.9 F Temperature Source Oral Pulse Rate 120 H Respiratory Rate 27 H Respiratory Effort Short of Breath Respiratory Depth Shallow Respiratory Pattern Tachypnea Blood Pressure 137/101 H Blood Pressure Mean 113 Pulse Ox 95 94 Oxygen Delivery Method Room Air Room Air Room Air Oxygen Flow Rate (L/min) Fraction of Inspired Oxygen (FIO2) 08/28/24 19:49 08/28/24 19:49 08/28/24 21:00 Temperature Temperature Source Pulse Rate 105 H 133 H Respiratory Rate 24 H 30 H Respiratory Effort Respiratory Depth Respiratory Pattern Blood Pressure 139/123 H Blood Pressure Mean 128 Pulse Ox 89 96 98 Oxygen Delivery Method Room Air Nasal Cannula Oxygen Flow Rate (L/min) 2 Fraction of Inspired Oxygen (FIO2) 08/28/24 21:27 08/28/24 23:00 08/29/24 00:00 Temperature 97.8 F Temperature Source Pulse Rate 115 H 108 H Respiratory Rate 18 18 Respiratory Effort Respiratory Depth Respiratory Pattern Blood Pressure 130/99 H Blood Pressure Mean 109 Pulse Ox 92 96 96 Oxygen Delivery Method Venturi Mask Oxygen Flow Rate (L/min) 8 Fraction of Inspired Oxygen (FIO2) 40 Weight Weight: 146 lb 6.191 oz Body Mass Index (BMI) 20.4 Physical Exam Const oriented x3 General Appearance: cooperative and well developed HEENT normocephalic and head/scalp atraumatic Eyes PERRL Neck no lymphadenopathy Lymph Lymphatic: no lymphadenopathy noted Resp normal respiratory effort and normal air movement Auscultation: wheezes expiratory wheezes; Negative for rales or rhonchi Cardio regular rate, regular rhythm, S1 normal heart sound and S2 normal heart sound Heart Sounds: murmur systolic GI soft to palpation and non-tender Inspection: abdominal distention Extremity normal capillary refill General Extremity: clubbing Skin General Skin Exam: no breakdown Neuro no focal motor deficits and no sensory deficits noted Psych thought process normal, cooperative and affect normal Results Lab / Micro Data 08/28/24 17:09 08/28/24 17:09 Labs: Laboratory Results - last 24 hr 08/28/24 17:09: WBC 4.8, RBC 3.00 L, Hgb 10.1 L, Hct 31.6 L, MCV 105.3 H, MCH 33.7 H, MCHC 32.0, RDW Std Deviation 53.1 H, RDW Coeff of Kalpana 13.8, Plt Count 181, MPV 11.9, Immature Gran % (Auto) 0.200, Neut % (Auto) 68.3, Lymph % (Auto) 21.3, Mcdonough % (Auto) 7.6, Eos % (Auto) 1.4, Baso % (Auto) 1.2 H, Absolute Neuts (auto) 3.3, Absolute Lymphs (auto) 1.03, Nucleated RBC % 0, Sodium 137, Potassium 3.1 L, Chloride 102, Carbon Dioxide 21.9, Anion Gap 13, BUN 8, Creatinine 1.10, Estim Creat Clear Calc 65.39, Est GFR (MDRD) Non-Af 76, BUN/Creatinine Ratio 7.3 L, Glucose 369 H, Calcium 8.0, Troponin T High Sens 67 H* D 08/28/24 17:54: Urine Color Straw, Urine Clarity Clear, Urine pH 7.0, Ur Specific [place] 1.010, Urine Protein Negative, Urine Glucose (UA) 1000 H, UrineKetones Negative, Urine Occult Blood Negative, Urine Nitrite Negative, Urine Bilirubin Negative, Urine Urobilinogen Normal, Ur Leukocyte Esterase Negative, Urine RBC 0-5 SEEN, Urine WBC 0-5 SEEN, Ur Squamous Epith Cells 0 SEEN, Urine Bacteria 0 SEEN, Urine Mucus 0 SEEN 08/28/24 19:56: D-Dimer Quant (PE/DVT) 1.52 H* 08/28/24 22:32: Troponin T Hi Sens 2 Hr 57 H* Rhythm Strip Rhythm Strip: Paced Rate: 108 Ectopy: None Imaging Radiology Impression Chest X-Ray 08/28/24 19:28 IMPRESSION: 1. Bibasilar atelectasis or pneumonia. 2. Bilateral pleural effusions. Reading Location: [facility] Assessment & Plan Assessment/Plan (1) Medically noncompliant: (2) History of diabetes mellitus: (3) Pleural effusion: (4) Pleural effusion associated with hepatic disorder: PLAN: Plan 1 shortness of breath?pleural effusions?admit patient to general medical floor, oxygen support to maintain saturation greater than 90%, add albuterol breathing treatments as needed. Add CBC CMP and repeat chest x-ray in a.m. consider consult with interventional radiology to do thoracentesis, if patient is stable and maintained on supportive oxygen it is feasible to discharge home with home oxygen and continue follow-up as an outpatient if he is agreeable to this plan 2. History of diabetes?continue routine home medications 3. DVT prophylaxis?low molecular weight heparin 4. History of cirrhotic liver disease?CMP in the a.m. Charges/Coding Visit Charges Inpatient E&M: 68863 Init Hosp L2 08/29/24 0033 <Electronically signed by Trish Vila MD> Cosigner Signature (if applicable): CC: Dr. Trish Vila MD; Sigrid Call DO~ Signed [facility] Work Phone: Hospital course Narrative No data available for this section [facility] Hospital Discharge instructions No data available for this section [facility] instructionsWSt[facility] Work Phone: Hospital Discharge instructionsWSt. Anthony's [facility] Work Phone: Hospital Discharge instructionsWSt. Anthony's Hospital Work Phone: Hospital Discharge instructions Additional Instructions Plenty of fluids and rest. Probably suggest stopping smoking and decreasing your alcohol use. Zofran as needed for nausea. Call and follow-up with your GI doctor soon as possible. If increasing pain, fever, intractable vomiting or feeling worse.[facility] Work Phone: Progress note No data available for this section [facility] Reason for referral (narrative)* Outpatient Procedure (Routine) - New Request Specialty Diagnoses / Procedures Referred By Jonathan moreira Referred To Contact [facility] Diagnoses Anemia, unspecified type Weight loss Chronic pancreatitis, unspecified pancreatitis type (HCC) Epigastric pain Procedures EGD DIAGNOSTIC EGD DIAGNOSTIC ESOPHAGOGASTRODUODENOSCO PY TRANSORAL DIAGNOSTIC Susana Ramirez APRN.GAMEWELL OPERATOR [address] [place] [address] [facility] [place] [address] [place] [address] Referral ID Status Reason Start Date Expiration Date Visits Requested Visits Authorized [id number] New Request Auto-Generat ed Referral 4 12/23/2024 1 1 * Outpatient Procedure (Routine) - New Request Specialty Diagnoses / Procedures Referred By Jonathan moreira Referred To Contact [facility] Diagnoses Anemia, unspecified type Weight loss Procedures COLONOSCOPY DIAGNOSTIC COLONOSCOPY DIAGNOSTIC COLONOSCOPY FLX DX W/COLLJ SPEC WHEN PFRMD Susana Ramirez APRN.CNP [address] [place] [address] [address] Referral ID Status Reason Start Date Expiration Date Visits Requested Visits Authorized [id number] New Request Auto-Generat ed Referral 4 12/23/2024 1 1 [facility])No reason for referral information availableWSt. Anthony's Hospital Work Phone: Reason for visit Narrative* Outpatient Procedure (Routine) - Closed Specialty Diagnoses / Procedures Referred By Contac t Referred To Contact [facility] Diagnoses Anemia, unspecified type Weight loss Chronic pancreatitis, unspecified pancreatitis type (HCC) Epigastric pain Procedures EGD DIAGNOSTIC EGD DIAGNOSTIC EGD DIAGNOSTIC ESOPHAGOGASTRODUODENOSCO PY TRANSORAL DIAGNOSTIC Susana Ramirez APRN.CNP [address] [place] [address] Phone: tel: fax: [facility] [address] [place] [address] Referral ID Status Reason Start Date Expiration Date V isits Requested Visits Authorized [id number] Closed Auto-Generate d Referral 12/24/2023 12/23/2024 1 1 [facility] Summary Purpose Family History Relationship Condition Age at Onset Recorded Date/T kaila father Coronary artery disease Unknown mother Dementia Unknown Advance Directives Advance Directive Response Recorded Date/ Time Advance Directives No January 09, 2017 2:00pm Living Will No May 04, 2021 1:22pm Power of Softlines Supervisor No May 04 1:22pm Advance Directive Response Recorded Date/ Time Advance Directives No January 09, 2017 2:00pm Living Will No May 04, 2021 3:44pm Power of Softlines Supervisor No May 04 3:44pm Advance Directive Response Recorded Date/ Time Advance Directives No January 09, 2017 2:00pm Living Will No May 29, 2021 7:13pm Power of Softlines Supervisor No May 29 7:13pm Advance Directive Response Recorded Date/ Time Advance Directives No January 09, 2017 2:00pm Living Will No May 29, 2021 10:10pm Power of Softlines Supervisor No May 29 10:10pm Advance Directive Response Recorded Date/ Time Advance Directives No January 09, 2017 2:00pm Living Will No September 30 2:09pm Power of Softlines Supervisor No [place] 23rd, 2 022 2:09pm Advance Directive Response Recorded Date/ Time Advance Directives No January 09, 2017 2:00pm Living Will No October 06 12:26pm Power of Softlines Supervisor No October 06 022 12:26pm Advance Directive Response Recorded Date/ Time Name of Medical Power of Softlines Supervisor TERRA MELENDREZ November 05, 2021 7:17pm Advance Directives No January 09, 2017 2:00pm Living Will Yes November 05, 2021 7:17pm Power of Softlines Supervisor Yes October 7:17pm Advance Directive Response Recorded Date/ Time Name of Medical Power of Softlines Supervisor TERRA MELENDREZ November 05, 2021 6:17pm Name of Medical Power of Softlines Supervisor Terra Melendrez November 11, 2021 3:27pm Name of Medical Power of Softlines Supervisor hammad, daughter February 01, 2022 7:05pm Advance Directives No January 09, 2017 1:00pm Living Will Yes February 01, 022 7:05pm Power of Softlines Supervisor Yes February 01, 2022 7:05pm Advance Directive Response Recorded Date/ Time Name of Medical Power of Softlines Supervisor TERRA MELENDREZ November 05, 2021 6:17pm Name of Medical Power of Softlines Supervisor Terra Melendrez November 11, 2021 3:27pm Name of Medical Power of Softlines Supervisor [email or web address] February 01, 2022 9:39pm Advance Directives No January 09, 2017 1:00pm Living Will Yes February 01, 022 9:39pm Power of Softlines Supervisor Yes February 01, 2022 9:39pm Advance Directive Response Recorded Date/ Time Name of Medical Power of Softlines Supervisor dgtr February 01, 2022 9:39pm Advance Directives No January 09, 2017 1:00pm Living Will No March 21, 2 023 6:13pm Power of Softlines Supervisor No March 21, 2022 6:13pm Advance Directive Response Recorded Date/ Time Name of Medical Power of Softlines Supervisor dgtr February 01, 2022 9:39pm Name of Medical Power of Softlines Supervisor pt unsure March 21, 2022 7:51pm Advance Directives No January 09, 2017 1:00pm Living Will Yes March 21, 2 023 7:51pm Power of Softlines Supervisor Yes March 21, 2022 7:51pm Advance Directive Response Recorded Date/ Time Advance Directives No January 09, 2017 2:00pm Living Will No November 01, 2022 8:05pm Power of Softlines Supervisor No October 8:05pm Advance Directive Response Recorded Date/ Time Advance Directives No January 09, 2017 2:00pm Living Will No April 20, 2023 11:35am Power of Softlines Supervisor No April 19 11:35am Advance Directive Response Recorded Date/ Time Advance Directives No January 09, 2017 2:00pm Living Will No April 20, 2023 5:00pm Power of Softlines Supervisor No April 19 5:00pm Advance Directive Response Recorded Date/ Time Advance Directives No January 09, 2017 2:00pm Living Will No May 09, 2023 1:46pm Power of Softlines Supervisor No May 08 1:46pm Advance Directive Response Recorded Date/ Time Advance Directives No January 09, 2017 2:00pm Living Will No May 09, 2023 10:12pm Power of Softlines Supervisor No May 08 10:12pm Advance Directive Response Recorded Date/ Time Do you have a Healthcare Power of Softlines Supervisor? Yes June 25, 2024 4:17pm Advance Directives No January 09, 2017 2:00pm Advance Directive Response Recorded Date/ Time Do you have a Healthcare Power of Softlines Supervisor? Yes June 26, 2024 12:18am Advance Directives No January 09, 2017 2:00pm Advance Directive Response Recorded Date/ Time Do you have a Healthcare Power of Softlines Supervisor? Yes June 26, 2024 12:18am Do you have a Healthcare Power of Softlines Supervisor? Yes June 30, 2024 8:46pm Advance Directives No January 09, 2017 2:00pm Advance Directive Response Recorded Date/ Time Do you have a Healthcare Power of Softlines Supervisor? Yes June 26, 2024 12:18am Do you have a Healthcare Power of Softlines Supervisor? Yes June 30, 2024 8:46pm Do you have a Healthcare Power of Softlines Supervisor? No July 11, 2024 4:12pm Advance Directives No January 09, 2017 2:00pm Advance Directive Response Recorded Date/ Time Do you have a Healthcare Power of Softlines Supervisor? Yes June 26, 2024 12:18am Do you have a Healthcare Power of Softlines Supervisor? Yes June 30, 2024 8:46pm Do you have a Healthcare Power of Softlines Supervisor? No July 11, 2024 11:40am Advance Directives No January 09, 2017 2:00pm Advance Directive Response Recorded Date/ Time Do you have a Healthcare Power of Softlines Supervisor? Yes June 26, 2024 12:18am Do you have a Healthcare Power of Softlines Supervisor? Yes June 30, 2024 8:46pm Do you have a Healthcare Power of Softlines Supervisor? No July 11, 2024 4:12pm Do you have a Healthcare Power of Softlines Supervisor? Yes August 01, 2024 2:20pm Advance Directives No January 09, 2017 2:00pm Advance Directive Response Recorded Date/ Time Do you have a Healthcare Power of Softlines Supervisor? Yes June 26, 2024 12:18am Do you have a Healthcare Power of Softlines Supervisor? Yes June 30, 2024 8:46pm Do you have a Healthcare Power of Softlines Supervisor? No July 11, 2024 4:12pm Do you have a Healthcare Power of Softlines Supervisor? No August 01, 2024 10:05pm Advance Directives No January 09, 2017 2:00pm Advance Directive Response Recorded Date/ Time Do you have a Healthcare Power of Softlines Supervisor? Yes June 26, 2024 12:18am Do you have a Healthcare Power of Softlines Supervisor? Yes June 30, 2024 8:46pm Do you have a Healthcare Power of Softlines Supervisor? No July 11, 2024 4:12pm Do you have a Healthcare Power of Softlines Supervisor? No August 01, 2024 10:05pm Do you have a Healthcare Power of Softlines Supervisor? No August 28, 2024 5:50pm Advance Directives No January 09, 2017 2:00pm [...] y 2024 7:37am CRITICAL HYPOKALEMIA, LACTIC ACIDOSIS Florentino y 20th, 2025 2:44pm CRITICAL HYPOKALEMIA, LACTIC ACIDOSIS Ma y [...] Chief Complaint Admit Date Pacer Check Remote March 6th, 2025 4:26 pm CRITICAL HYPOKALEMIA, LACTIC ACIDOSIS Ma [...] 9:33 am HYPOXIA, HFrEF EXACERBATION August 01, 025 8:44pm HYPOXIA, HFrEF EXACERBATION August 02 025 7:44am HYPOXIA, HFrEF EXACERBATION August 02 025 5:12pm HYPOXIA, HFrEF EXACERBATION Alexia 26th, 2 025 6:39am Reason for Visit Admit [...] Elevated troponin August 01, 2024 8:44 pm Chief Complaint Admit Date CRITICAL HYPOKALEMIA, LACTIC ACIDOSIS Florentino pemberton 2024 10:15pm CRITICAL HYPOKALEMIA, LACTIC ACIDOSIS Ma [...] 025 8:44pm HYPOXIA, HFrEF EXACERBATION August 02 025 7:44am HYPOXIA, HFrEF EXACERBATION August 02 025 5:12pm HYPOXIA, HFrEF EXACERBATION August 03 025 6:39am sob August 29, 2024 12:1 9am HYPOXIA PLEURAL EFFUSION August 29, 2024 12:38am Reason for Visit Admit Date Adverse drug [...] reduced ejection fraction) August 01, 2024 8:44pm Elevated troponin August 01, 2024 8:44 pm Hypoxia August 01, 2024 8:44 pm H/O aortic valve replacement August 01, 2024 8:44pm History of aortic aneurysm repair Alexia 2 4th, 2025 8:44pm History of diabetes mellitus August 29, 2024 12:38am Medically noncompliant August 29, 2024 1 2:38am Pleural effusion August 29, 2024 12:3 8am Pleural effusion associated with hepatic disorder August 29, 2024 12:38am Reason for Referral Specialty Diagnoses / Procedures Referred By Contac t Referred To Contact CT IMAGING Diagnoses Diarrhea, unspecified type Acute pancreatitis, unspecified complication status, unspecified pancreatitis type Procedures CT PANCREAS W IVCON CT ABDOMEN W/CONTRAST Marianna Wagner WAXER OPERATOR.GAMEWELL OPERATOR [address] [place] [address] [place] [address] Referral ID Status Reason Start Date Expiration Date Visits Requested Visits Authorized [id number] New Request Auto-Generat ed Referral 11/08/2023 12/06/2024 1 1 Specialty Diagnoses / Procedures Referred By Contac t Referred To Contact Hematology / [facility] Diagnoses 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) Medically complex patient Anemia, unspecified type Procedures CONSULT TO HEMATOLOGY OFFICE/OUTPATIENT NEW HIGH MDM 60 MINUTES Marianna Wagner, WAXER OPERATOR.GAMEWELL OPERATOR [address] [place] [address] Trish Silverio, [address] [place] [address] Referral ID Status Reason Start Date Expiration Date Visits Requested Visits Authorized [id number] Authorized PCP Requested Referral 10/17/2023 10/16/2024 1 1 Specialty Diagnoses / Procedures Referred By Contac t Referred To Contact CT IMAGING Diagnoses Generalized abdominal pain Diarrhea of presumed infectious origin Weight loss Alcohol-induced chronic pancreatitis (HCC) Procedures CT ABD/PEL WO IVCON CT ABD/PEL WO IVCON CT ABD & PELVIS W/O CONTRAST Marianna Wagner APRN.GAMEWELL OPERATOR [address] [place] [address] [place] [address] Referral ID Status Reason Start Date Expiration Date Visits Requested Visits Authorized [id number] New Request Auto-Generat ed Referral 10/14/2023 11/12/2024 1 1 Specialty Diagnoses / Procedures Referred By Contac t Referred To Contact Gastroenterology Diagnoses Diarrhea of presumed infectious origin Generalized abdominal pain Procedures CONSULT TO GASTROENTEROLOGY OFFICE/OUTPATIENT [facility] 60 MINUTES Marianna Wagner, WAXER OPERATOR.GAMEWELL OPERATOR [address] [place] [address] Referral ID Status Reason Start Date Expiration Date Visits Requested Visits Authorized [id number] Authorized PCP Requested Referral 09/24/2023 09/23/2024 1 1 Specialty Diagnoses / Procedures Referred By Contac t Referred To Contact [facility] Diagnoses Chronic diarrhea Weight loss Procedures CONSULT TO GASTROENTEROLOGY OFFICE/OUTPATIENT [facility] 60 MINUTES Marianna Wagner, WAXER OPERATOR.GAMEWELL OPERATOR [address] [place] [address] [facility] GASTRO[facility] [address] [place] [address] Referral ID Status Reason Start Date Expiration Date Visits Requested Visits Authorized [id number] Authorized PCP Requested Referral 08/09/2023 08/08/2024 1 1 Specialty Diagnoses / Procedures Referred By Contac t Referred To Contact [facility] Diagnoses Type 2 diabetes mellitus with complication, with long-term current use of insulin (HCC) Weight loss Procedures CONSULT TO ENDOCRINOLOGY OFFICE/OUTPATIENT [facility] 60 MINUTES Marianna Wagner, WAXER OPERATOR.GAMEWELL OPERATOR [address] [place] [address] Kell Richmond MD [address] [place] [address] Referral ID Status Reason Start Date Expiration Date Visits Requested Visits Authorized [id number] Authorized PCP Requested Referral 08/09/2023 08/08/2024 1 1 Additional Source Comments (unrecognized sect ion and content) No Status Records FoundNo Status Records FoundNo Status Records FoundNo Status Records FoundNo Status Records FoundNo Status Records FoundNo Status Records FoundNo Status Records Found INFORMATION SOURCE (unrecogn ized section and content) DATE CREATED AUTHOR 12/12/2017 [facility] DATE CREATED AUTHOR AUTHOR'S ORGANIZ ATION 04/08/2018 [facility] DATE CREATED AUTHOR AUTHOR'S ORGANIZ ATION 04/09/2023 [facility] ([place]) DATE CREATED AUTHOR AUTHOR'S ORGANIZ ATION 03/24/2024 [facility] DATE CREATED AUTHOR AUTHOR'S ORGANIZ ATION 04/07/2024 [facility] DATE CREATED AUTHOR AUTHOR'S ORGANIZ ATION 04/14/2024 [facility] DATE CREATED AUTHOR AUTHOR'S ORGANIZ ATION 07/18/2024 [facility] DATE CREATED AUTHOR AUTHOR'S ORGANIZ ATION 08/22/2024 [facility] Goals (unrecognized section and content) Goals may be documented in a n alternate section Care Team (unrecognized sect ion and content) Care Team Personnel Name: 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 - GAMEWELL OPERATOR 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: Employed Provider Member Role: Primary Care Physician Address: Address: [address] [facility] [address] Care Team Related Persons Name: NARENDRA MELENDREZ Name: TERRA MELENDREZ Care Teams (unrecognized sec tion and content) Team Status: Active Member Role Status Dates Marianna Wagner CLAM DREDGER, CLAM DREDGER-C Primary Care Provider Active Team Status: Inactive [...] End: June 28, 2024 Dr. Rolan Romero , DO Emergency Provider Activ e Start: June 25, 2024 End: June 28, 2024 Marianna Wagner CLAM DREDGER, CLAM DREDGER-C Primary Care Provider Active Start: June 25, 2024 End: June 28, 2024 Dr. Conrado Pro , DO Admit Provider Active Start: June 25, 2024 End: June 28, 2024 Dr. Conrado Pro , DO Other Provider Active Start: June 25, 2024 End: June 28, 2024 Dr. Melonie De La Rosa , DO Attending Provider Active S tart: June 25, 2024 End: June 28, 2024 Team Status: Active Member Role Status Dates Dr. Rolan Romero , DO Emergency Provider Activ e Start: June 26, 2024 Marianna Fátima CLAM DREDGER, CLAM DREDGER-C Primary Care Provider Active Start: June 26, [...] Activ e Start: June 26, 2024 Marianna Wagner CLAM DREDGER, CLAM DREDGER-C Primary Care Provider Active Start: June 26, [...] Activ e Start: June 27, 2024 Marianna Fátima CLAM DREDGER, CLAM DREDGER-C Primary Care Provider Active Start: June 27, [...] Activ e Start: June 27, 2024 Marianna Queshaina CLAM DREDGER, CLAM DREDGER-C Primary Care Provider Active Start: June 27, [...] Activ e Start: June 28, 2024 Marianna Fátima CLAM DREDGER, CLAM DREDGER-C Primary Care Provider Active Start: June 28, [...] Activ e Start: June 28, 2024 Marianna Wagner CLAM DREDGER, CLAM DREDGER-C Primary Care Provider Active Start: June 28, [...] Active Member Role Status Dates Marianna Fátima CLAM DREDGER, CLAM DREDGER-C Primary Care Provider Active Start: June 30, [...] Status: Inactive Member Role Status Dates Marianna Wagner CLAM DREDGER, CLAM DREDGER-C Primary Care Provider Active Start: June 30, [...] Active Member Role Status Dates Marianna Wagner CLAM DREDGER, CLAM DREDGER-C Primary Care Provider Active Start: July 01, 2024 Dr. Narendra Gonzalez , DO Emergency Provider Active Start: July 01, 2024 Dr. Conrado Pro , DO Admit Provider Active Start: July 01, 2024 Dr. Conrado Pro , DO Other Provider Active Start: July 01, 2024 Dr. Melonie De La Rosa , DO Attending Provider Active S tart: July 01, 2024 Dr. Mleonie De La Rosa , DO Other Provider Active Start : July 01, 2024 Team Status: Active Member Role Status Dates Marianna Wagner CLAM DREDGER, CLAM DREDGER-C Primary Care Provider Active Start: July 02, [...] Active Member Role Status Dates Marianna Fátima CLAM DREDGER, CLAM DREDGER-C Primary Care Provider Active Start: July 03, [...] Active Member Role Status Dates Marianna Fátima CLAM DREDGER, CLAM DREDGER-C Primary Care Provider Active Start: July 03, 2024 Dr. Yaneli Carbone MD Attending Provider Active Start: July 03, 2024 Team Status: Active Member Role Status Dates Marianna Fátima CLAM DREDGER, CLAM DREDGER-C Primary Care Provider Active Start: July 03, [...] Active Member Role Status Dates Marianna Fátima CLAM DREDGER, CLAM DREDGER-C Primary Care Provider Active Start: July 04, [...] Active Member Role Status Dates Marianna Wagner CLAM DREDGER, CLAM DREDGER-C Primary Care Provider Active Start: July 04, [...] Active Member Role Status Dates Marianna Wagner CLAM DREDGER, CLAM DREDGER-C Primary Care Provider Active Start: July 04, [...] Active Member Role Status Dates Marianna Wagner CLAM DREDGER, CLAM DREDGER-C Primary Care Provider Active Start: July 05, [...] Active Member Role Status Dates Marianna Wagner CLAM DREDGER, CLAM DREDGER-C Primary Care Provider Active Start: July 06, 2024 Dr. Narendra Gonzalez , DO Emergency Provider Active Start: July 06, 2024 Dr. Conrado Pro , DO Admit Provider Active Start: July 06, 2024 Dr. Cnorado Pro , DO Other Provider Active Start: [...] Active Member Role Status Dates Marianna Wagner CLAM DREDGER, CLAM DREDGER-C Primary Care Provider Active Start: July 11, 2024 Dr. Perez Ribeiro , DO Emergency Provider Active Start: July 11, 2024 Dr. Melonie De La Rosa , DO Attending Provider Active S tart: July 11, 2024 Team Status: Active Member Role Status Dates Marianna Wagner CLAM DREDGER, CLAM DREDGER-C Primary Care Provider Active Start: July 11, 2024 Dr. Perez Ribeiro , DO Emergency Provider Active Start: July 11, 2024 Dr. Melonie De La Rosa , DO Admit Provider Active Start : July 11, 2024 Dr. Melonie De La Rosa , DO Attending Provider Active S tart: July 11, 2024 Team Status: Active Member Role Status Dates Sigrid Call [facility], DO Primary Care Provider Active Team Status: Inactive Member Role Status Dates Dr. Perez Ribeiro , DO Emergency Provider Active Start: July 11, 2024 End: July 14, 2024 Dr. Melonie De La Rosa , DO Admit Provider Active Start : July 11, 2024 End: July 14, 2024 Dr. Melonie De La Rosa , DO Other Provider Active Start : July 11, 2024 End: July 14, 2024 Dr. Denys Fontanez MD Other Provider Active Sta rt: July 11, 2024 End: July 14, 2024 Dr. Conrado Morel MD Attending Provider Active Start: July 11, 2024 End: July 14, 2024 Sigrid Jakub [facility], DO Primary Care Provider Active Start: July 11, 2024 End: July 14, 2024 Team Status: Active Member Role Status Dates Marianna Wagner CLAM DREDGER, CLAM DREDGER-C Primary Care Provider Active Start: July 12, [...] Active Member Role Status Dates Marianna Wagner CLAM DREDGER, CLAM DREDGER-C Primary Care Provider Active Start: July 12, [...] Star t: July 12, 2024 Dian BALDERAS PA-C Attending Provider Active Start: July 12, 2024 Team Status: Active Member Role Status Dates Marianna Wagner CLAM DREDGER, CLAM DREDGER-C Primary Care Provider Active Start: July 13, [...] Active Member Role Status Dates Marianna Wagner CLAM DREDGER, CLAM DREDGER-C Primary Care Provider Active Start: July 13, 2024 Dr. Perez Ribeiro , Emergency Provider Active Start: July 13, 2024 Dr. Melonie De La Rosa , Admit Provider Active Start : July 13, [...] Star t: July 14, 2024 Sigrid Call [facility], DO Primary Care Provider Active Start: July 14, 2024 Team Status: Active Member Role Status Dates Andreas Pathak CLAM DREDGER, CLAM DREDGER-C Family Provider Activ e Andreas Pathak CLAM DREDGER, CLAM DREDGER-C Primary Care Provider Active Team Status: Active Member Role Status Dates Andreas Pathak CLAM DREDGER, CLAM DREDGER-C Primary Care Provider Active Dr. Vinh Lomeli MD Emergency Provider Active Dr. Iman Aguayo MD Admit Provider, Other Provider Active Dr. Conrado Morel MD Attending Provider, Other Provid er Active Team Status: Active Member Role Status Dates Andreas Pathak CLAM DREDGER, CLAM DREDGER-C Primary Care Provider Active Dr. Vinh Lomeli MD Emergency Provider Active Dr. Iman Aguayo MD Admit Provider, Other Provider Active Dr. Mateusz Dutton DO Attending Provider, Other Pro vider Active Dr. Conrado Morel MD Other Provider Active Team Status: Active Member Role Status Dates Andreas Pathak CLAM DREDGER, CLAM DREDGER-C Primary Care Provider Active Dr. Vinh Lomeli MD Emergency Provider Active Dr. Ashley Alvarado MD Admit Provider, Other Provider Active Dr. Iman Aguayo MD Attending Provider Active Team Status: Inactive Member Role Status Dates Andreas Pathak CLAM DREDGER, CLAM DREDGER-C Primary Care Provider Active Dr. Vinh Lomeli MD Emergency Provider Active Dr. Iman Aguayo MD Admit Provider, Other Provider Active Dr. Mateusz Dutton DO Attending Provider Active Dr. Conrado Morel MD Other Provider Active Team Status: Active Member Role Status Dates Andreas Pathak CLAM DREDGER, CLAM DREDGER-C Primary Care Provider Active Dr. Vinh Lomeli MD Emergency Provider Active Dr. Iman Aguayo MD Admit Provider, Attending Prov ider Active Team Status: Active Member Role Status Dates Andreas Pathak CLAM DREDGER, CLAM DREDGER-C Primary Care Provider Active Dr. Vinh Lomeli MD Emergency Provider Active Dr. Iman Aguayo MD Admit Provider, Other Provider Active Dr. Mateusz Dutton DO Attending Provider, Other Pro vider Active Team Status: Inactive Member Role Status Dates Andreas Pathak CLAM DREDGER, CLAM DREDGER-C Primary Care Provider Active Dr. Vinh Lomeli MD Emergency Provider Active Dr. Iman Aguayo MD Admit Provider, Other Provider Active Dr. Mateusz Dutton DO Attending Provider Active Team Status: Inactive Member Role Status Dates Andreas Pathak CLAM DREDGER, CLAM DREDGER-C Primary Care Provider Active Dr. Sinan Abarca DO Attending Provider, Emergency Provider Active Team Status: Inactive Member Role Status Dates Andreas Pathak CLAM DREDGER, CLAM DREDGER-C Primary Care Provider Active Dr. Vinh Lomeli MD Emergency Provider Active Team Status: Inactive Member Role Status Dates Andreas Pathak CLAM DREDGER, CLAM DREDGER-C Primary Care Provider Active Dr. Trung Bob MD Attending Provider Active Team Status: Active Member Role Status Dates Andreas Pathak CLAM DREDGER, CLAM DREDGER-C Primary Care Provider Active Dr. Chris Davila DO Emergency Provider Active Dr. Lucas Frausto MD Admit Provider, Attending Provider Active Team Status: Active Member Role Status Dates Andreas Pathak CLAM DREDGER, CLAM DREDGER-C Primary Care Provider Active Dr. Chris Davila DO Emergency Provider Active Dr. Lucas Frausto MD Admit Provi mary lou, Attending Provider, Other Provider Active Team Status: Active Member Role Status Dates Andreas Pathak CLAM DREDGER, CLAM DREDGER-C Primary Care Provider Active Dr. Chris Davila DO Emergency Provider Active Dr. Lucas Frausto MD Admit Provider, Other Pro vider Active Dr. Ashley Alvarado MD Attending Provider, Other Prov ider Active Team Status: Inactive Member Role Status Dates Andreas Pathak CLAM DREDGER, CLAM DREDGER-C Primary Care Provider Active Dr. Chris Davila , Emergency Provider Active Dr. Lucas Frausto MD Admit Provider, Other Pro vider Active Dr. Ashley Alvarado MD Attending Provider Active Team Status: Active Member Role Status Dates Andreas Pathak CLAM DREDGER, CLAM DREDGER-C Primary Care Provider Active Dr. Carlos Augustin MD Emergency Provider Active Dr. Conrado Pro DO Admit Provider, Attending Pr ovider Active Team Status: Active Member Role Status Dates Andreas Pathak CLAM DREDGER, CLAM DREDGER-C Primary Care Provider Active Dr. Carlos Augustin [...] Active Member Role Status Dates Andreas Pathak CLAM DREDGER, CLAM DREDGER-C Primary Care Provider Active Dr. Carlos Augustin [...] Active Member Role Status Dates Andreas Pathak CLAM DREDGER, CLAM DREDGER-C Primary Care Provider Active Dr. Carlos Augustin [...] Tiara Horowitz MD Other Provider Active Dr. uYnier Allred MD Other Provider Active Dr. Jose Pacheco MD Other Provider Active Dr. Marquez Elmore MD Other Provider Active Dr. Bronson Peterson MD Other Provider Active Dr. Toni Dodge MD Other Provider Active Dr. Iman gAuayo MD Attending Provider Active Team Status: Active Member Role Status Dates Andreas Pathak CLAM DREDGER, CLAM DREDGER-C Primary Care Provider Active Dr. Carlos Augustin MD Emergency Provider Active Dr. Conrado Pro DO Admit Provider, Other Provid er Active Dr. Conrado Morel MD Referring Provider, Other Provid er Active Dr. Barry Sheehan DO Attending Provider Active Team Status: Active Member Role Status Dates Andreas Pathak CLAM DREDGER, CLAM DREDGER-C Primary Care Provider Active Dr. Carlos Augustin MD Emergency Provider Active Dr. Conrado de Evelio , DO Admit Provider, Other Provid er Active Dr. Conrado Morel MD Attending Provider, Other Provid er Active Dr. Maya Melo MD Other Provider Active Team Status: Active Member Role Status Dates Andreas Pathak CLAM DREDGER, CLAM DREDGER-C Primary Care Provider Active Dr. Carlos Augustin MD Emergency Provider Active Dr. Conrado Pro DO Admit Provider, Other Provid er Active Dr. Maya Melo MD Other Provider Active Dr. Refugio Rojas MD Attending Provider, Other Provi mary lou Active Dr. Conrado Morel MD Other Provider Active Team Status: Inactive Member Role Status Dates Andreas Pathak CLAM DREDGER, CLAM DREDGER-C Primary Care Provider Active Dr. Carlos Augustin MD Emergency Provider Active Dr. Conrado Pro , Admit Provider, Other Provid er Active Dr. Maya Melo MD Other Provider Active Dr. Refugio Rojas MD Attending Provider Active Dr. Conrado Morel MD Other Provider Active Dimensional Inspector Relationship Specialty Start Date End Date Marianna Wagner, WAXER OPERATOR.GAMEWELL OPERATOR [address] [place] [address] PCP - General Family Medicine 08/09/23 Trung Bob MD [address] [address] Physician Cardiology 06/10/18 Dimensional Inspector Relationship Specialty Start Date End Date Marianna Wagner, WAXER OPERATOR.GAMEWELL OPERATOR [address] [place] [address] PCP - General Family Medicine 08/09/23 Trung Bob MD [address] [address] Physician Cardiology 06/10/18 Dimensional Inspector Relationship Specialty Start Date End Date Marianna Wagner, WAXER OPERATOR.GAMEWELL OPERATOR [address] [facility], [place] [id number] PCP - General Family Medicine 08/09/23 Trung Bob MD [address] [place], [place] [address] Physician Cardiology 06/10/18 Dimensional Inspector Relationship Specialty Start Date End Date Marianna Wagner, WAXER OPERATOR.GAMEWELL OPERATOR [address] [place] [address] PCP - General Family Medicine 08/09/23 Trung Bob MD [address] [place], [place] [id number] Physician Cardiology 06/10/18 Dimensional Inspector Relationship Specialty Start Date End Date Marianna Wagner, WAXER OPERATOR.GAMEWELL OPERATOR [address], [place] [id number] PCP - General Family Medicine 08/09/23 Trung Bob MD [address] [place] [address], [place] [phone] Physician Cardiology 06/10/18 Dimensional Inspector Relationship Specialty Start Date End Date Marianna Wagner, WAXER OPERATOR.GAMEWELL OPERATOR [address] [facility], [place] [id number] PCP - General Family Medicine 08/09/23 Trung Bob MD [address] [place], [place] [address] Physician Cardiology 06/10/18 Dimensional Inspector Relationship Specialty Start Date End Date Marianna Wagner, WAXER OPERATOR.GAMEWELL OPERATOR [address] [facility], [place] [id number] PCP - General Family Medicine 08/09/23 Trung Bob MD [address] [place], [place] [address] Physician Cardiology 06/10/18 Dimensional Inspector Relationship Specialty Start Date End Date Marianna Wagner, WAXER OPERATOR.GAMEWELL OPERATOR [address] [facility], [place] [id number] PCP - General Family Medicine 08/09/23 Trung Bob MD [address] [place], [place] [phone] Physician Cardiology 06/10/18 Dimensional Inspector Relationship Specialty Start Date End Date Marianna Wagner, WAXER OPERATOR.GAMEWELL OPERATOR [address] [facility], [place] [id number] PCP - General Family Medicine 08/09/23 Trung Bob MD [address] [place], [place] [phone] Physician Cardiology 06/10/18 Dimensional Inspector Relationship Specialty Start Date End Date Marianna Wagner, WAXER OPERATOR.GAMEWELL OPERATOR [address] [facility], [place] [id number] PCP - General Family Medicine 08/09/23 Trung Bob MD [address] [place], [place] [address] Physician Cardiology 06/10/18 Dimensional Inspector Relationship Specialty Start Date End Date Marianna Wagner, WAXER OPERATOR.GAMEWELL OPERATOR [address] [facility], [place] [id number] PCP - General Family Medicine 08/09/23 Trung Bob MD [address] [place], [place] [address] Physician Cardiology 06/10/18 Dimensional Inspector Relationship Specialty Start Date End Date Marianna Wagner, WAXER OPERATOR.GAMEWELL OPERATOR [address] [facility] [place], [place] [id number] PCP - General Family Medicine 08/09/23 Trung Bob MD [address] [place], [place] [phone] Physician Cardiology 06/10/18 Dimensional Inspector Relationship Specialty Start Date End Date Marianna Wagner, WAXER OPERATOR.GAMEWELL OPERATOR [address] [place], [place] [id number] PCP - General Family Medicine 08/09/23 Trung Bob MD [address], [place] [phone]- Physician Cardiology 06/10/18 Dimensional Inspector Relationship Specialty Start Date End Date Marianna Wagner, WAXER OPERATOR.GAMEWELL OPERATOR [address] [facility] [place] [id number] PCP - General Family Medicine 08/09/23 Trung Bob MD [address] [place], [place] [address] Physician Cardiology 06/10/18 Dimensional Inspector Relationship Specialty Start Date End Date Marianna Wagner, WAXER OPERATOR.GAMEWELL OPERATOR [address] [facility] [place] [place] [id number] PCP - General Family Medicine 08/09/23 Trung Bob MD [address] [place], [place] [address] Physician Cardiology 06/10/18 Dimensional Inspector Relationship Specialty Start Date End Date Marianna Wagner, WAXER OPERATOR.GAMEWELL OPERATOR [address] [facility] [place] [place] [id number] PCP - General Family Medicine 08/09/23 Trung Bob MD [address] [address] Physician Cardiology 06/10/18 Dimensional Inspector Relationship Specialty Start Date End Date Marianna Wagner, WAXER OPERATOR.GAMEWELL OPERATOR [address] [place], [place] [id number] PCP - General Family Medicine 08/09/23 Trung Bob MD [address] [phone]- Physician Cardiology 06/10/18 Dimensional Inspector Relationship Specialty Start Date End Date Marianna Wagner, WAXER OPERATOR.GAMEWELL OPERATOR [address] [facility] [place] [place] [id number] PCP - General Family Medicine 08/09/23 Trung Bob MD [address] [facility] [address] [place], [place] [address] Physician Cardiology 06/10/18 Dimensional Inspector Relationship Specialty Start Date End Date Marianna Wagner, WAXER OPERATOR.GAMEWELL OPERATOR [address] [place], [place] [id number] PCP - General Family Medicine 08/09/23 Trung Bob MD [address] [address] Physician Cardiology 06/10/18 Dimensional Inspector Relationship Specialty Start Date End Date Marianna Wagner, WAXER OPERATOR.GAMEWELL OPERATOR [address] [place], [place] [id number] PCP - General Family Medicine 08/09/23 Trung Bob MD [address] [address] Physician Cardiology 06/10/18 Dimensional Inspector Relationship Specialty Start Date End Date Marianna Wagner, WAXER OPERATOR.GAMEWELL OPERATOR [address] [place], [place] [id number] PCP - General Family Medicine 08/09/23 Trung Bob MD [address] [address] Physician Cardiology 06/10/18 Dimensional Inspector Relationship Specialty Start Date End Date Marianna Wagner, WAXER OPERATOR.GAMEWELL OPERATOR [address] [place], [place] [id number] PCP - General Family Medicine 08/09/23 Trung Bob MD [address] [address] Physician Cardiology 06/10/18 Dimensional Inspector Relationship Specialty Start Date End Date Marianna Wagner, WAXER OPERATOR.GAMEWELL OPERATOR [address] [facility] [place] [id number] PCP - General Family Medicine 08/09/23 Trung Bob MD [address] [place], [place] [address] Physician Cardiology 06/10/18 Dimensional Inspector Relationship Specialty Start Date End Date Marianna Wagner, WAXER OPERATOR.GAMEWELL OPERATOR [address] [facility] [place] [id number] PCP - General Family Medicine 08/09/23 Trung Bob MD [address] [place] [address] Physician Cardiology 06/10/18 Dimensional Inspector Relationship Specialty Start Date End Date Marianna Wagner, WAXER OPERATOR.GAMEWELL OPERATOR [address] [facility] [place] [id number] PCP - General Family Medicine 08/09/23 Trung Bob MD [address] [place] [address] Physician Cardiology 06/10/18 Dimensional Inspector Relationship Specialty Start Date End Date Marianna Wagner, WAXER OPERATOR.GAMEWELL OPERATOR [address] [facility] [place] [id number] PCP - General Family Medicine 08/09/23 Trung Bob MD [address] [place], [place] [phone] Physician Cardiology 06/10/18 Dimensional Inspector Relationship Specialty Start Date End Date Marianna Wagner, WAXER OPERATOR.GAMEWELL OPERATOR [address] [place], [place] [id number] PCP - General Family Medicine 08/09/23 Trung Bob MD [address] [place] [address] Physician Cardiology 06/10/18 Dimensional Inspector Relationship Specialty Start Date End Date Marianna Wagner WAXER OPERATOR.GAMEWELL OPERATOR [address] [place] [address] PCP - General Family Medicine 08/09/23 Trung Bob MD [address] [place] [address] Physician Cardiology 06/10/18 Dimensional Inspector Relationship Specialty Start Date End Date Marianna Wagner, WAXER OPERATOR.GAMEWELL OPERATOR [address] [facility] [place] [id number] PCP - General Family Medicine 08/09/23 Trung Bob MD [address] [place] [address] Physician Cardiology 06/10/18 Dimensional Inspector Relationship Specialty Start Date End Date Marianna Wagner, WAXER OPERATOR.GAMEWELL OPERATOR [address] [place] [address] PCP - General Family Medicine 08/09/23 Trung Bob MD [address] [place] [address] Physician Cardiology 06/10/18 Team Status: Active Member Role Status Dates Dr. Rolan Romero , DO Referring Provider Activ e Start: June 25, 2024 Dr. Rolan Romero , DO Emergency Provider Activ e Start: June 25, 2024 Marianna Wagner CLAM DREDGER, CLAM DREDGER-C Primary Care Provider Active Start: June 25, [...] Activ e Start: June 26, 2024 Marianna Wagner CLAM DREDGER, CLAM DREDGER-C Primary Care Provider Active Start: June 26, [...] Activ e Start: June 27, 2024 Marianna Wagner CLAM DREDGER, CLAM DREDGER-C Primary Care Provider Active Start: June 27, [...] Activ e Start: June 28, 2024 Marianna Fátima CLAM DREDGER, CLAM DREDGER-C Primary Care Provider Active Start: June 28, [...] Active Member Role Status Dates Marianna Fátima CLAM DREDGER, CLAM DREDGER-C Primary Care Provider Active Start: July 02, [...] Active Member Role Status Dates Marianna Fátima CLAM DREDGER, CLAM DREDGER-C Primary Care Provider Active Start: July 03, [...] Active Member Role Status Dates Marianna Fátima CLAM DREDGER, CLAM DREDGER-C Primary Care Provider Active Start: July 04, [...] Active Member Role Status Dates Marianna Wagner CLAM DREDGER, CLAM DREDGER-C Primary Care Provider Active Start: July 05, [...] Active Member Role Status Dates Marianna Wagner CLAM DREDGER, CLAM DREDGER-C Primary Care Provider Active Start: July 06, [...] Provider Active Star t: July 06, 2024 Dimensional Inspector Relationship Specialty Start Date End Date Marianna Wagner, WAXER OPERATOR.GAMEWELL OPERATOR [address] [place], [place] [id number] PCP - General Family Medicine 08/09/23 Trung Bob MD [address] [place], [place] [phone] Physician Cardiology 06/10/18 Radha Etienne, RN Primary Care Smoking Tobacco Packing Machine Hand 07/07/24 Dimensional Inspector Relationship Specialty Start Date End Date Jenn Call DO [address] [facility] [place] [address] PCP - General Family Medicine 07/11/24 Trung Bob MD [address] [facility] [address] [place] [address] Physician Cardiology 06/10/18 Radha Etienne, ELIS Primary Care Smoking Tobacco Packing Machine Hand 07/17/24 07/17/24 Dimensional Inspector Relationship Specialty Start Date End Date Marianna Wagner, WAXER OPERATOR.GAMEWELL OPERATOR [address] [place] [address] PCP - General Family Medicine 08/09/23 Trung Bob MD [address] [facility] [address] [place], [place] [phone] Physician Cardiology 06/10/18 Radha Etienne, RN Primary Care Smoking Tobacco Packing Machine Hand 07/07/24 Team Status: Inactive Member Role Status Dates Sigrid Call [facility], DO Primary Care Provider Active Start: July 20, 2024 End: July 20, 2024 Dr. Trung Bob MD Attending Provider Active S tart: July 20, 2024 End: July 20, 2024 Team Status: Active Member Role Status Dates Marianna Wagner CLAM DREDGER, CLAM DREDGER-C Primary Care Provider Active Start: July 12, 2024 Dr. Perez Ribeiro , DO Emergency Provider Active Start: July 12, 2024 Dr. Melonie De La Rosa , DO Admit Provider Active Start : July 12, 2024 Dr. Melonie De La Rosa , DO Other Provider Active Start : July 12, 2024 Dr. Denys Fontanez MD Other Provider Active Sta rt: July 12, 2024 Dr. Conrado Morel MD Referring Provider Active Start: July 12, 2024 Dr. Conrado Morel MD Other Provider Active Star t: July 12, 2024 Dian Mendoza PA, PA-C Attending Provider Active Start: July 12, 2024 Team Status: Active Member Role Status Dates Sigrid GARZAC, DO Primary Care Provider Active Start: August [...] End: August 03, 2024 Dr. Valeriy Connell , Attending Provider Active Start: August 01, 2024 [...] Status: Active Member Role Status Dates Sigrid GARZA, DO Primary Care Provider Active Start: August [...] Provider Active Start : August 03, 2024 Dimensional Inspector Relationship Specialty Start Date End Date Jenn Call DO [address] [place] [address] PCP - General Family Medicine 07/11/24 Trung Bob MD [address] [address] Physician Cardiology 06/10/18 Dimensional Inspector Relationship Specialty Start Date End Date Jenn Call DO [address] [place] [address] PCP - General Family Medicine 07/11/24 Trung Bob MD [address] [address] Physician Cardiology 06/10/18 Team Status: Active Member Role/Relationship Status Dates Sigrid Call [facility], DO Primary Care Provider Active Team Status: Inactive Member Role/Relationship Status Dates Dr. Rolan Romero , DO Referring Provider Activ e Start: June 25, 2024 End: June 28, 2024 Dr. Rolan Romero , DO Emergency Provider Activ e Start: June 25, 2024 End: June 28, 2024 Marianna Wagner CLAM DREDGER, CLAM DREDGER-C Primary Care Provider Active Start: June 25, 2024 End: June 28, 2024 Dr. Conrado Pro , DO Admit Provider Active Start: June 25, 2024 End: June 28, 2024 Dr. Conrado Pro , DO Other Provider Active Start: June 25, 2024 End: June 28, 2024 Dr. Melonie De La Rosa , DO Attending Provider Active S tart: June 25, 2024 End: June 28, 2024 Team Status: Active Member Role/Relationship Status Dates Dr. Rolan Romero , DO Emergency Provider Activ e Start: June 26, 2024 Marianna Wagner CLAM DREDGER, CLAM DREDGER-C Primary Care Provider Active Start: June 26, 2024 Dr. Conrado Pro , DO Admit Provider Active Start: June 26, 2024 Dr. Conrado Pro , DO Other Provider Active Start: June 26, 2024 Dr. Melonie D eLa Rosa , DO Attending Provider Active S tart: June 26, 2024 Dr. Melonie De La Rosa , DO Other Provider Active Start : June 26, 2024 Team Status: Active Member Role/Relationship Status Dates Dr. Rolan Romero , DO Referring Provider Activ e Start: June 26, 2024 Dr. Rolan Romero , DO Emergency Provider Activ e Start: June 26, 2024 Marianna Fátima CLAM DREDGER, CLAM DREDGER-C Primary Care Provider Active Start: June 26, 2024 Dr. Conrado Pro , DO Admit Provider Active Start: June 26, 2024 Dr. Conrado Pro , DO Other Provider Active Start: June 26, 2024 Dr. Melonie De La Rosa , DO Other Provider Active Start : June 26, 2024 Dr. Antony Espitia , DO Attending Provider Active Start: June 26, 2024 Team Status: Active Member Role/Relationship Status Dates Dr. Rolan Romero , DO Emergency Provider Activ e Start: June 27, 2024 Mariannamandy Wagner CLAM DREDGER, CLAM DREDGER-C Primary Care Provider Active Start: June 27, [...] June 27, 2024 Team Status: Active Member Role/Relationship Status Dates Dr. Rolan Romero , DO Referring Provider Activ e Start: June 27, 2024 Dr. Rolan Romero , DO Emergency Provider Activ e Start: June 27, 2024 Marianna Fátima CLAM DREDGER, CLAM DREDGER-C Primary Care Provider Active Start: June 27, 2024 Dr. Conrado Pro , DO Admit Provider Active Start: June 27, 2024 Dr. Conrado Pro , DO Other Provider Active Start: June 27, 2024 Dr. Melonie De La Rosa , DO Other Provider Active Start : June 27, 2024 Dr. Antony Espitia , DO Attending Provider Active Start: June 27, 2024 Team Status: Active Member Role/Relationship Status Dates Dr. Rolan Romero , DO Emergency Provider Activ e Start: June 28, 2024 Marianna Fátima CLAM DREDGER, CLAM DREDGER-C Primary Care Provider Active Start: June 28, [...] June 28, 2024 Team Status: Active Member Role/Relationship Status Dates Dr. Rolan Romero , DO Referring Provider Activ e Start: June 28, 2024 Dr. Rolan Romero , DO Emergency Provider Activ e Start: June 28, 2024 Marianna Wagner CLAM DREDGER, CLAM DREDGER-C Primary Care Provider Active Start: June 28, 2024 Dr. Conrado Pro , DO Admit Provider Active Start: June 28, 2024 Dr. Conrado Pro , DO Other Provider Active Start: June 28, 2024 Dr. Melonie De La Rosa , DO Other Provider Active Start : June 28, 2024 Dr. Antony Espitia , DO Attending Provider Active Start: June 28, 2024 Team Status: Active Member Role/Relationship Status Dates Marianna Wagner CLAM DREDGER, CLAM DREDGER-C Primary Care Provider Active Start: June 30, 2024 Dr. Narendra Gonzalez , DO Emergency Provider Active Start: June 30, 2024 Dr. Conrado Pro , DO Admit Provider Active Start: June 30, 2024 Dr. Conrado Pro , DO Attending Provider Active Start: June 30, 2024 Dr. Conrado Pro , DO Other Provider Active Start: June 30, 2024 Team Status: Inactive Member Role/Relationship Status Dates Marianna Fátima CLAM DREDGER, CLAM DREDGER-C Primary Care Provider Active Start: June 30, [...] July 06, 2024 Team Status: Active Member Role/Relationship Status Dates Marianna Fátima CLAM DREDGER, CLAM DREDGER-C Primary Care Provider Active Start: July 01, 2024 Dr. Narendra Gonzalez , DO Emergency Provider Active Start: July 01, 2024 Dr. oCnrado Pro , DO Admit Provider Active Start: July 01, 2024 Dr. Conrado Pro , DO Other Provider Active Start: July 01, 2024 Dr. Melonie De La Rosa , DO Attending Provider Active S tart: July 01, 2024 Dr. Melonie De La Rosa , DO Other Provider Active Start : July 01, 2024 Team Status: Active Member Role/Relationship Status Dates Marianna Fátima CLAM DREDGER, CLAM DREDGER-C Primary Care Provider Active Start: July 02, [...] July 02, 2024 Team Status: Active Member Role/Relationship Status Dates Marianna Fátima CLAM DREDGER, CLAM DREDGER-C Primary Care Provider Active Start: July 03, [...] July 03, 2024 Team Status: Active Member Role/Relationship Status Dates Marianna Fátima CLAM DREDGER, CLAM DREDGER-C Primary Care Provider Active Start: July 03, 2024 Dr. Yaneli Carbone MD Attending Provider Active Start: July 03, 2024 Team Status: Active Member Role/Relationship Status Dates Marianna Wagner CLAM DREDGER, CLAM DREDGER-C Primary Care Provider Active Start: July 03, [...] July 03, 2024 Team Status: Active Member Role/Relationship Status Dates Marianna Wagner CLAM DREDGER, CLAM DREDGER-C Primary Care Provider Active Start: July 04, [...] July 04, 2024 Team Status: Active Member Role/Relationship Status Dates Marianna Wagner CLAM DREDGER, CLAM DREDGER-C Primary Care Provider Active Start: July 04, [...] July 04, 2024 Team Status: Active Member Role/Relationship Status Dates Marianna Wagner CLAM DREDGER, CLAM DREDGER-C Primary Care Provider Active Start: July 04, [...] July 04, 2024 Team Status: Active Member Role/Relationship Status Dates Marianna Wagner CLAM DREDGER, CLAM DREDGER-C Primary Care Provider Active Start: July 05, [...] July 05, 2024 Team Status: Active Member Role/Relationship Status Dates Marianna Wagner CLAM DREDGER, CLAM DREDGER-C Primary Care Provider Active Start: July 06, 2024 Dr. Narendra Gonzalez , DO Emergency Provider Active Start: July 06, 2024 Dr. Conrado Pro , DO Admit Provider Active Start: July 06, 2024 Dr. Conrado Pro , DO Other Provider Active Start: July 06, 2024 Dr. Chris Aragon DO Attending Provider Active Start: July 06, 2024 Dr. Chris Aragon DO Other Provider Active Start: July 06, 2024 Dr. Melonie De La Rosa DO Other Provider Active Start : July 06, 2024 Dr. Yaneli Carbone MD Other Provider Active Star t: July 06, 2024 Team Status: Active Member Role/Relationship Status Dates Mariannamandy Wagner CLAM DREDGER, CLAM DREDGER-C Primary Care Provider Active Start: July 11, 2024 Dr. Perez Ribeiro DO Emergency Provider Active Start: July 11, 2024 Dr. Melonie De La Rosa DO Attending Provider Active S tart: July 11, 2024 Team Status: Inactive Member Role/Relationship Status Dates Dr. Perez Ribeiro DO Emergency Provider Active Start: July 11, 2024 End: July 14, 2024 Dr. Melonie De La Rosa DO Admit Provider Active Start : July 11, 2024 End: July 14, 2024 Dr. Melonie De La Rosa DO Other Provider Active Start : July 11, 2024 End: July 14, 2024 Dr. Denys Fontanez MD Other Provider Active Sta rt: July 11, 2024 End: July 14, 2024 Dr. Conrado Morel MD Attending Provider Active Start: July 11, 2024 End: July 14, 2024 [facility] Active Start: July 11, 2024 End: July 14, 2024 Team Status: Active Member Role/Relationship Status Dates Marianna Wagner CLAM DREDGER, CLAM DREDGER-C Primary Care Provider Active Start: July 12, [...] July 12, 2024 Team Status: Active Member Role/Relationship Status Dates Marianna Wagner CLAM DREDGER, CLAM DREDGER-C Primary Care Provider Active Start: July 12, 2024 Dr. Perez Ribeior DO Emergency Provider Active Start: July 12, [...] Provider Active Star t: July 12, 2024 EFRAIN AkbarC Attending Provider Active Start: July 12, 2024 Team Status: Active Member Role/Relationship Status Dates Marianna Wagner CLAM DREDGER, CLAM DREDGER-C Primary Care Provider Active Start: July 13, [...] Provider Active Star t: July 13, 2024 EFRAIN AkbarC Attending Provider Active Start: July 13, 2024 Team Status: Active Member Role/Relationship Status Dates Marianna Wagner CLAM DREDGER, CLAM DREDGER-C Primary Care Provider Active Start: July 13, [...] July 13, 2024 Team Status: Active Member Role/Relationship Status Dates Dr. Perez Ribeiro DO Emergency [...] Active Star t: July 14, 2024 Sigrid Goodmannger [facility], DO Primary Care Provider Active Start: July 14, 2024 Team Status: Inactive Member Role/Relationship Status Dates Sigrid Yaner [facility], DO Primary Care Provider Active Start: July 20, 2024 End: July 20, 2024 Dr. Trung Bob MD Attending Provider Active S tart: July 20, 2024 End: July 20, 2024 Team Status: Inactive Member Role/Relationship Status Dates Sigrid Goodmannger [facility], DO Primary Care Provider Active Start: August [...] August 03, 2024 Team Status: Active Member Role/Relationship Status Dates Sigrid Yaner [facility], DO Primary Care Provider Active Start: August [...] August 02, 2024 Team Status: Active Member Role/Relationship Status Dates Sigrid Goodmannger [facility], DO Primary Care Provider Active Start: August 02, 2024 Dr. Tierney Macdonald DO Emergency Provider Active Start: August 02, 2024 Dr. Iman Aguayo MD Admit Provider Active St art: August 02, 2024 Dr. Iman Aguayo MD Other Provider Active St art: August 02, 2024 Dr. Valeriy Connell DO Referring Provider Active Start: August 02, 2024 Dr. Valeriy Connell DO Other Provider Active Star t: August 02, 2024 Dr. Valeriy Ross MD Other Provider Active Start : August 02, 2024 ANDREY Chanel Attending Provider Active Star t: August 02, 2024 Team Status: Active Member Role/Relationship Status Dates Sigrid Jakub [facility], DO Primary Care Provider Active Start: August 03, 2024 Dr. Tierney Macdonald , Emergency Provider Active Start: August 03, 2024 [...] Provider Active Start : August 03, 2024 Team Status: Active Member Role/Relationship Status Dates Sigrid Call [facility], DO Primary Care Provider Active Start: August 29, 2024 Dr. Vinh Lomeli MD Emergency Provider Active S tart: August 29, 2024 Dr. Trish Vila MD Attending Provider Active Start: August 29, 2024 Team Status: Active Member Role/Relationship Status Dates Sigrid Jakub [facility], DO Primary Care Provider Active Start: August 29, 2024 Dr. Vinh Lomeli MD Emergency Provider Active S tart: August 29, 2024 Dr. Trish Vila MD Admit Provider Active Star t: August 29, 2024 Dr. Trish Vila MD Attending Provider Active Start: August 29, 2024 Source Comments (unrecognize d section and content) In the event this informatio n is protected by the Federal Confidentiality of Alcohol and Drug Abuse Patient Records regulations: The Federal rules restrict any use of the information to criminally investigate or prosecute any alcohol or drug abuse patient.[facility] HealthcareIn the event this information is protected by the Federal Confidentiality of Alcohol and Drug Abuse Patient Records regulations: The Federal rules restrict any use of the information to criminally investigate or prosecute any alcohol or drug abuse patient.[facility] HealthcareIn the event this information is protected by the Federal Confidentiality of Alcohol and Drug Abuse Patient Records regulations: The Federal rules restrict any use of the information to criminally investigate or prosecute any alcohol or drug abuse patient.[facility] HealthcareIn the event this information is protected by the Federal Confidentiality of Alcohol and Drug Abuse Patient Records regulations: The Federal rules restrict any use of the information to criminally investigate or prosecute any alcohol or drug abuse patient.[facility] HealthcareIn the event this information is protected by the Federal Confidentiality of Alcohol and Drug Abuse Patient Records regulations: The Federal rules restrict any use of the information to criminally investigate or prosecute any alcohol or drug abuse patient.[facility] HealthcareIn the event this information is protected by the Federal Confidentiality of Alcohol and Drug Abuse Patient Records regulations: The Federal rules restrict any use of the information to criminally investigate or prosecute any alcohol or drug abuse patient.[facility] HealthcareIn the event this information is protected by the Federal Confidentiality of Alcohol and Drug Abuse Patient Records regulations: The Federal rules restrict any use of the information to criminally investigate or prosecute any alcohol or drug abuse patient.[facility] HealthcareIn the event this information is protected by the Federal Confidentiality of Alcohol and Drug Abuse Patient Records regulations: The Federal rules restrict any use of the information to criminally investigate or prosecute any alcohol or drug abuse patient.[facility] HealthcareIn the event this information is protected by the Federal Confidentiality of Alcohol and Drug Abuse Patient Records regulations: The Federal rules restrict any use of the information to criminally investigate or prosecute any alcohol or drug abuse patient.[facility] HealthcareIn the event this information is protected by the Federal Confidentiality of Alcohol and Drug Abuse Patient Records regulations: The Federal rules restrict any use of the information to criminally investigate or prosecute any alcohol or drug abuse patient.[facility] HealthcareIn the event this information is protected by the Federal Confidentiality of Alcohol and Drug Abuse Patient Records regulations: The Federal rules restrict any use of the information to criminally investigate or prosecute any alcohol or drug abuse patient.[facility] HealthcareIn the event this information is protected by the Federal Confidentiality of Alcohol and Drug Abuse Patient Records regulations: The Federal rules restrict any use of the information to criminally investigate or prosecute any alcohol or drug abuse patient.[facility] HealthcareIn the event this information is protected by the Federal Confidentiality of Alcohol and Drug Abuse Patient Records regulations: The Federal rules restrict any use of the information to criminally investigate or prosecute any alcohol or drug abuse patient.[facility] HealthcareIn the event this information is protected by the Federal Confidentiality of Alcohol and Drug Abuse Patient Records regulations: The Federal rules restrict any use of the information to criminally investigate or prosecute any alcohol or drug abuse patient.[facility] HealthcareIn the event this information is protected by the Federal Confidentiality of Alcohol and Drug Abuse Patient Records regulations: The Federal rules restrict any use of the information to criminally investigate or prosecute any alcohol or drug abuse patient.[facility] HealthcareIn the event this information is protected by the Federal Confidentiality of Alcohol and Drug Abuse Patient Records regulations: The Federal rules restrict any use of the information to criminally investigate or prosecute any alcohol or drug abuse patient.[facility] HealthcareIn the event this information is protected by the Federal Confidentiality of Alcohol and Drug Abuse Patient Records regulations: The Federal rules restrict any use of the information to criminally investigate or prosecute any alcohol or drug abuse patient.[facility] HealthcareIn the event this information is protected by the Federal Confidentiality of Alcohol and Drug Abuse Patient Records regulations: The Federal rules restrict any use of the information to criminally investigate or prosecute any alcohol or drug abuse patient.[facility] HealthcareIn the event this information is protected by the Federal Confidentiality of Alcohol and Drug Abuse Patient Records regulations: The Federal rules restrict any use of the information to criminally investigate or prosecute any alcohol or drug abuse patient.[facility] HealthcareIn the event this information is protected by the Federal Confidentiality of Alcohol and Drug Abuse Patient Records regulations: The Federal rules restrict any use of the information to criminally investigate or prosecute any alcohol or drug abuse patient.[facility] HealthcareIn the event this information is protected by the Federal Confidentiality of Alcohol and Drug Abuse Patient Records regulations: The Federal rules restrict any use of the information to criminally investigate or prosecute any alcohol or drug abuse patient.[facility] HealthcareIn the event this information is protected by the Federal Confidentiality of Alcohol and Drug Abuse Patient Records regulations: The Federal rules restrict any use of the information to criminally investigate or prosecute any alcohol or drug abuse patient.[facility] HealthcareIn the event this information is protected by the Federal Confidentiality of Alcohol and Drug Abuse Patient Records regulations: The Federal rules restrict any use of the information to criminally investigate or prosecute any alcohol or drug abuse patient.[facility] HealthcareIn the event this information is protected by the Federal Confidentiality of Alcohol and Drug Abuse Patient Records regulations: The Federal rules restrict any use of the information to criminally investigate or prosecute any alcohol or drug abuse patient.[facility] HealthcareIn the event this information is protected by the Federal Confidentiality of Alcohol and Drug Abuse Patient Records regulations: The Federal rules restrict any use of the information to criminally investigate or prosecute any alcohol or drug abuse patient.[facility] HealthcareIn the event this information is protected by the Federal Confidentiality of Alcohol and Drug Abuse Patient Records regulations: The Federal rules restrict any use of the information to criminally investigate or prosecute any alcohol or drug abuse patient.[facility] HealthcareIn the event this information is protected by the Federal Confidentiality of Alcohol and Drug Abuse Patient Records regulations: The Federal rules restrict any use of the information to criminally investigate or prosecute any alcohol or drug abuse patient.[facility] HealthcareIn the event this information is protected by the Federal Confidentiality of Alcohol and Drug Abuse Patient Records regulations: The Federal rules restrict any use of the information to criminally investigate or prosecute any alcohol or drug abuse patient.[facility] HealthcareIn the event this information is protected by the Federal Confidentiality of Alcohol and Drug Abuse Patient Records regulations: The Federal rules restrict any use of the information to criminally investigate or prosecute any alcohol or drug abuse patient.[facility] HealthcareIn the event this information is protected by the Federal Confidentiality of Alcohol and Drug Abuse Patient Records regulations: The Federal rules restrict any use of the information to criminally investigate or prosecute any alcohol or drug abuse patient.[facility] HealthcareIn the event this information is protected by the Federal Confidentiality of Alcohol and Drug Abuse Patient Records regulations: The Federal rules restrict any use of the information to criminally investigate or prosecute any alcohol or drug abuse patient.[facility] HealthcareIn the event this information is protected by the Federal Confidentiality of Alcohol and Drug Abuse Patient Records regulations: The Federal rules restrict any use of the information to criminally investigate or prosecute any alcohol or drug abuse patient.[facility] HealthcareIn the event this information is protected by the Federal Confidentiality of Alcohol and Drug Abuse Patient Records regulations: The Federal rules restrict any use of the information to criminally investigate or prosecute any alcohol or drug abuse patient.[facility] HealthcareIn the event this information is protected by the Federal Confidentiality of Alcohol and Drug Abuse Patient Records regulations: The Federal rules restrict any use of the information to criminally investigate or prosecute any alcohol or drug abuse patient.[facility] HealthcareIn the event this information is protected by the Federal Confidentiality of Alcohol and Drug Abuse Patient Records regulations: The Federal rules restrict any use of the information to criminally investigate or prosecute any alcohol or drug abuse patient.[facility] HealthcareIn the event this information is protected by the Federal Confidentiality of Alcohol and Drug Abuse Patient Records regulations: The Federal rules restrict any use of the information to criminally investigate or prosecute any alcohol or drug abuse patient.[facility] HealthcareIn the event this information is protected by the Federal Confidentiality of Alcohol and Drug Abuse Patient Records regulations: The Federal rules restrict any use of the information to criminally investigate or prosecute any alcohol or drug abuse patient.[facility] HealthcareIn the event this information is protected by the Federal Confidentiality of Alcohol and Drug Abuse Patient Records regulations: The Federal rules restrict any use of the information to criminally investigate or prosecute any alcohol or drug abuse patient.[facility] HealthcareIn the event this information is protected by the Federal Confidentiality of Alcohol and Drug Abuse Patient Records regulations: The Federal rules restrict any use of the information to criminally investigate or prosecute any alcohol or drug abuse patient.[facility] HealthcareIn the event this information is protected by the Federal Confidentiality of Alcohol and Drug Abuse Patient Records regulations: The Federal rules restrict any use of the information to criminally investigate or prosecute any alcohol or drug abuse patient.[facility] HealthcareIn the event this information is protected by the Federal Confidentiality of Alcohol and Drug Abuse Patient Records regulations: The Federal rules restrict any use of the information to criminally investigate or prosecute any alcohol or drug abuse patient.[facility] HealthcareIn the event this information is protected by the Federal Confidentiality of Alcohol and Drug Abuse Patient Records regulations: The Federal rules restrict any use of the information to criminally investigate or prosecute any alcohol or drug abuse patient.[facility] HealthcareIn the event this information is protected by the Federal Confidentiality of Alcohol and Drug Abuse Patient Records regulations: The Federal rules restrict any use of the information to criminally investigate or prosecute any alcohol or drug abuse patient.[facility] HealthcareIn the event this information is protected by the Federal Confidentiality of Alcohol and Drug Abuse Patient Records regulations: The Federal rules restrict any use of the information to criminally investigate or prosecute any alcohol or drug abuse patient.[facility] HealthcareIn the event this information is protected by the Federal Confidentiality of Alcohol and Drug Abuse Patient Records regulations: The Federal rules restrict any use of the information to criminally investigate or prosecute any alcohol or drug abuse patient.[facility] HealthcareIn the event this information is protected by the Federal Confidentiality of Alcohol and Drug Abuse Patient Records regulations: The Federal rules restrict any use of the information to criminally investigate or prosecute any alcohol or drug abuse patient.[facility] HealthcareIn the event this information is protected by the Federal Confidentiality of Alcohol and Drug Abuse Patient Records regulations: The Federal rules restrict any use of the information to criminally investigate or prosecute any alcohol or drug abuse patient.[facility] HealthcareIn the event this information is protected by the Federal Confidentiality of Alcohol and Drug Abuse Patient Records regulations: The Federal rules restrict any use of the information to criminally investigate or prosecute any alcohol or drug abuse patient.[facility] HealthcareIn the event this information is protected by the Federal Confidentiality of Alcohol and Drug Abuse Patient Records regulations: The Federal rules restrict any use of the information to criminally investigate or prosecute any alcohol or drug abuse patient.[facility] HealthcareIn the event this information is protected by the Federal Confidentiality of Alcohol and Drug Abuse Patient Records regulations: The Federal rules restrict any use of the information to criminally investigate or prosecute any alcohol or drug abuse patient.[facility] HealthcareIn the event this information is protected by the Federal Confidentiality of Alcohol and Drug Abuse Patient Records regulations: The Federal rules restrict any use of the information to criminally investigate or prosecute any alcohol or drug abuse patient.[facility] HealthcareIn the event this information is protected by the Federal Confidentiality of Alcohol and Drug Abuse Patient Records regulations: The Federal rules restrict any use of the information to criminally investigate or prosecute any alcohol or drug abuse patient.[facility] HealthcareIn the event this information is protected by the Federal Confidentiality of Alcohol and Drug Abuse Patient Records regulations: The Federal rules restrict any use of the information to criminally investigate or prosecute any alcohol or drug abuse patient.[facility] HealthcareIn the event this information is protected by the Federal Confidentiality of Alcohol and Drug Abuse Patient Records regulations: The Federal rules restrict any use of the information to criminally investigate or prosecute any alcohol or drug abuse patient.[facility] HealthcareIn the event this information is protected by the Federal Confidentiality of Alcohol and Drug Abuse Patient Records regulations: The Federal rules restrict any use of the information to criminally investigate or prosecute any alcohol or drug abuse patient.[facility] HealthcareIn the event this information is protected by the Federal Confidentiality of Alcohol and Drug Abuse Patient Records regulations: The Federal rules restrict any use of the information to criminally investigate or prosecute any alcohol or drug abuse patient.[facility] HealthcareIn the event this information is protected by the Federal Confidentiality of Alcohol and Drug Abuse Patient Records regulations: The Federal rules restrict any use of the information to criminally investigate or prosecute any alcohol or drug abuse patient.[facility] Reason for Visit (unrecogniz ed section and content) Reason Comments Results Reason Comments Establish Care Previous pt. Of dr. [facility] at [facility]. Think he may have a seizure or stoke. [facility] to [facility]. ([place] [place] in [place]) Diarrhea X 2 months. BM is or prashant . Loss of weight . Goes 8 times a day Reason Comments Patient Question Reason Onset Date Comments [facility] Other 08/24/2023 Care Coordination Reason Onset Date Comments [facility] Other 09/10/2023 Care Coordination Reason Comments Diarrhea Reason Comments Patient Update Reason Onset Date Comments [facility] Chronic [facility] 09/15/2023 Care Coordination Reason Comments Patient Question Reason Comments Results Orders Reason Comments 2 month f/u Abdomen is still bot evan and his bowel movements Reason Comments New Patient Reason Comments Results Specialty Diagnoses / Procedures Referred By Contac t Referred To Contact CT IMAGING Diagnoses Generalized abdominal pain Diarrhea of presumed infectious origin Weight loss Anemia, unspecified type History of alcohol abuse Elevated liver enzymes Procedures CT ABD/PEL WO IVCON CT ABD & PELVIS W/O CONTRAST Marianna Wagner APRN.GAMEWELL OPERATOR [address] [place] [address] [place] [address] Referral ID Status Reason Start Date Expiration Date Visits Requested Visits Authorized [id number] Pending Review Patient Cleared - Admin/Chair man/Directo r advise to proceed or did not respond 10/19/2023 11/17/2024 2 2 Reason Comments Refill Request Reason Comments Results Orders Reason Comments New Patient Evaluation Specialty Diagnoses / Procedures Referred By Jonathan moreira Referred To Contact Hematology / [facility] DEPARTMENT Diagnoses 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) Medically complex patient Anemia, unspecified type Procedures CONSULT TO HEMATOLOGY OFFICE/OUTPATIENT NEW HIGH MDM 60 MINUTES Marianna Wagner, WAXER OPERATOR.GAMEWELL OPERATOR [address] [place] [address] Trish Silverio, DO [address] [place] [address] Referral ID Status Reason Start Date Expiration Date V isits Requested Visits Authorized [id number] Closed PCP Requested Referral 10/17/2023 10/16/2024 1 1 Reason Onset Date Comments Refill Request 11/26/2023 Reason Comments denial: [id number] PANCREAS W IVCON Specialty Diagnoses / Procedures Referred By Jonathan moreira Referred To Contact Radiology / RADIO CT SC[facility] Diagnoses Diarrhea, unspecified CT PANCREAS W IVCON Diarrhea, unspecified type [R19.7] Acute pancreatitis, unspecified complication status, unspecified pancreatitis ty... Procedures CT ABDOMEN W/CONTRAST CT WWO ABD2 400 Marianna Wagner APRN.GAMEWELL OPERATOR [address] [place] [address] [facility] [address] [place] [address] Referral ID Status Reason Start Date Expiration Date V isits Requested Visits Authorized [id number] Authorized 11/30/2023 12/30/2023 1 1 Specialty Diagnoses / Procedures Referred By Contac t Referred To Contact CT IMAGING Diagnoses Diarrhea, unspecified type Acute pancreatitis, unspecified complication status, unspecified pancreatitis type Procedures CT PANCREAS W IVCON CT ABDOMEN W/CONTRAST Marianna Wagner APRN.GAMEWELL OPERATOR [address] [place] [address] [place] [id number] Referral ID Status Reason Start Date Expiration Date V isits Requested Visits Authorized [id number] Closed Auto-Generate d Referral 11/30/2023 12/30/2023 1 1 Reason Comments Anemia Diarrhea and blood i n the stool Specialty Diagnoses / Procedures Referred By Contac t Referred To Contact [facility] Diagnoses Chronic diarrhea Weight loss Procedures CONSULT TO GASTROENTEROLOGY OFFICE/OUTPATIENT [facility] 60 MINUTES Marianna Wagner, WAXER OPERATOR.GAMEWELL OPERATOR [address] [place] [address] [facility] [address] [place] [address] Referral ID Status Reason Start Date Expiration Date V isits Requested Visits Authorized [id number] Closed PCP Requested Referral 08/09/2023 08/08/2024 1 [...] Onset Date Comments Transition Of Care 07/07/2024 [facility] D/[facility] Reason Onset Date Comments Transition Of Care 07/17/2024 [place] D/[facility] Reason Onset Date Comments Transition Of [...] BE BASED ON THE PRIMARY CLINICAL RECORDS. [employer] [facility]. provides no warranty or guarantee of the accuracy or completeness of information in this document.
[2024-08-29] MEDS: Creon 24,000 unit DR Capsule 1 CAP PO ×2 (08:42→16:58)
[2024-08-29] MEDS: Lactobacillis Acidophilus 1 CAP PO ×2 (08:42→20:14)
[2024-08-29] MEDS: SACUBITRIL/VALSARTAN 24/26 MG TABLET 1 EACH PO ×2 (08:42→20:15)
[2024-08-29] MEDS: Metoprolol(XL)Succ 25 MG Tablet 12.5 MG PO (08:42)
[2024-08-29] MEDS: Thiamine Hydrochloride 100 MG Tablet PO (08:42)
[2024-08-29] MEDS: 0.9% Saline Lock 10 ML Syringe IV ×2 (08:56→14:56)
--- NOTE | 2024-08-29 14:00 | CASEMGMT ---
ELIS KEATING Chart Review: Patient was admitted 08/01-08/03/24 for hypoxia, CHF exacerbation, and elevated troponin. See assessment from 06/26/24 and previous readmission reviews from 07/01, 07/12, 08/02. Patient discharged to home with outpatient therapy and follow-up plans in place. Patient returned to [facility] ED on 08/29/24 for increased SOB and was admitted for hypoxia and pleural effusion. ELIS KEATING in to discuss readmission and needs at discharge. RN ZURI reviewed information from previous assessment, no changes to information. Patient states he was taking medications as prescribed. Patient states he was following 1500ml fluid restriction. Patient states he called PCP office for 2 weeks to schedule follow-up appt. Patient states he was not aware of GI and Cardiology follow-up. Patient does have outpatient therapy evals scheduled on 09/04/24, patient did not recall appt. ELIS KEATING updated discharge plan to include [facility] appt. ELIS KEATING discussed having staff schedule follow-up appts prior to discharge, patient voiced appreciation. RN ZURI provided information regarding CCN program and patient agreeable to have referral placed. Patient is currently on oxygen, will monitor for home oxygen at discharge, prefers [employer]. Patient denied further needs or concerns at this time. ELIS KEATING made referral to CCN. Plan is for patient to discharge home with CCN and follow-up plans in place. CM will continue to follow this patient and plan for a safe discharge.
--- NOTE | 2024-08-29 18:03 | PCM.PN.BLA ---
Progress Note Continue with diuresis today and recheck improvement tomorrow morning with possible chest x-ray ambulatory pulse ox he has had extensive workup over the last 2 to 3 months for his issues. An echo at the end of June so will not repeat at this time and troponins are trending down and no chest pain.
[2024-08-29] MEDS: Polyethylene Glycol 3350 17 GM PACKET PO (20:14)
[2024-08-29] MEDS: Glucerna Shake 120 ML LIQUID PO (21:37)
[2024-08-29] MEDS: MELATONIN 3 MG TABLET PO (21:37)
[2024-08-30] VITALS (22 sets, daily range): BP systolic 76–114; BP diastolic 56–88; PULSE 74–96; RESP 16–22; TEMP 36.4–37.1; O2SAT 78–100
--- NOTE | 2024-08-30 | FLU_PTH ---
PATIENT: ANALILIA TALLEY LOC: [facility] U#:[id number] AGE/SX: 64/M ROOM: [facility] RE08/29/[address]: Dr. Lucas Frausto MD : 1960 BED: 1 DIS: 09/04/2024 SPEC #: [id number] RECD: 08/30/24 15:18 STATUS: ROMARIO REQ #: [id number] GENOVEVA: 08/30/24 00:[address]: Lucas Frausto DEPT: CYTOLOGY RECD BY: Ti Warren ENTERED: 08/31/24 08:44 SP TYPE: Fluid OTHR DR: MD Dr. Alcides Vallejo MD Dr. Bruce Arthur, MD Dr. Derek Brown, MD Dr. Aldo Thurston Dr., MD Dr. Gautam Baskaran, MD Dr. Yordanos Habtegebriel, MD Dr. Hemant Dand, MD Dr. Jose Ochoa, MD Dr. Justin Wong, MD Dr. Kimber Foust, MD Dr. Lamia Aljundi, MD Dr. Marisa Magana, MD Dr. Pritam Ghosh, MD Dr. Pavan Irukulla, MD Dr. Paul Nielsen, MD Dr. Saad Farooqi, MD Dr. Sukhdeep Dhesi, MD Dr. Vladimir Esteves Dr., MD Dr. Timothy Fernstrom, DO MD Dr. Toni Whitt MD Kristen Wenger, [facility], DO Tissues: A - THORACIC FLUID Procedures: Special Stain Group II Surgery Specimen Level IV Cytospin Fluid HEADER OPERATION: Ultrasound guided thoracentesis PRE-OP DIAGNOSIS: Pleural effusion - right chest TISSUE SUBMITTED: A- Thoracentesis fluid for cytology DIAGNOSIS CYTOLOGY A. Right pleural effusion, thoracentesis (cytospin, cellblock): - No malignant cells identified. CYTOLOGY STUDY Slides are reviewed. CYTOLOGY GROSS A. Received is 95 ml of josé miguel-cloudy fluid labeled with the patient's name and and designated per the requisition as Thoracentesis fluid. Submitted for cytology and cell block preparation. 08/31/2024 CPT: 32354,42125
[2024-08-30 05:50] LABS: Hematocrit 29.8 % (40-54); Hemoglobin 9.4 g/dL (13.0-16.5); Immature Granulocytes Count 0.020 X10^3/uL (0.0-0.0); Mean Corp Hgb Conc 31.5 g/dL (32-36); Mean Corpuscular Volume 106.0 fL (80-94); Mean Platelet Vol. 11.7 fl (6.2-12.0); NRBC Flagged by Analyzer 0 % (0-5); Platelet Count 181 K/mm3 (150-450); RBC Distribution Width CV 13.7 % (11.6-14.6); RBC Distribution Width SD 53.6 fl (35.1-43.9); Red Blood Count 2.81 M/mm3 (4.6-6.2); White Blood Count 5.6 K/mm3 (4.4-11.0)
[2024-08-30 06:12] LABS: AST(SGOT) 28 U/L (<=37); Alanine Aminotransfer ALT/SGPT 12 U/L (<=46); Albumin, Serum 3.0 g/dL (3.4-4.8); Alkaline Phosphatase 142 U/L (40-129); Anion Gap 9 (5-15); BUN 13 mg/dL (4-19); BUN/Creat Ratio 10.2 RATIO (10-20); Calcium,Total 8.7 mg/dL (7.6-11.0); Carbon Dioxide 24.2 mmol/L (21.0-32.0); Chloride 102 mmol/L (98-108); Estimated Creatinine Clearance 56.57 ml/min (50-250); Globulin 3.1 g/dL (2.2-4.2); Glucose 227 mg/dL (70-99); Potassium 5.4 mmol/L (3.3-5.1)
[2024-08-30] MEDS: Thiamine Hydrochloride 100 MG Tablet PO (08:02)
[2024-08-30] MEDS: Lactobacillis Acidophilus 1 CAP PO ×2 (08:03→23:34)
[2024-08-30] MEDS: Metoprolol(XL)Succ 25 MG Tablet 12.5 MG PO (08:04)
[2024-08-30] MEDS: SACUBITRIL/VALSARTAN 24/26 MG TABLET 1 EACH PO (08:05)
--- NOTE | 2024-08-30 08:50 | RAD_ITS ---
PROCEDURE: CHEST PA AND LATERAL 08/30/2024 REASON FOR EXAM: HYPOXIA TECHNIQUE: CHEST PA AND LATERAL COMPARISON: Chest radiograph 08/28/2024. FINDINGS: Hardware: Stable left chest wall ICD pacemaker, prior median sternotomy, CABG and aortic valve replacement. Surgical clips in the right axilla. Heart: Heart size is mildly enlarged. Mediastinum: The thoracic aorta is tortuous and calcified. Lungs: Low lung volumes secondary to at least moderate bilateral pleural effusions and adjacent atelectasis. Emphysema with scattered areas of scarring. No obvious consolidation, given limitations. No pneumothorax. Bones: Degenerative changes are identified within the thoracic spine. RAD/Chest PA and Lateral IMPRESSION: 1. Stable moderate pleural effusions and mild cardiomegaly. 2. Emphysema. Reading Location: [id number]
[2024-08-30] MEDS: Creon 24,000 unit DR Capsule 1 CAP PO ×2 (10:41→16:44)
--- NOTE | 2024-08-30 10:44 | CASEMGMT ---
ELIS KEATING NOTE: Appts scheduled for pt to [facility], GI/Mariela, PCP, and GI/Mariela and placed on pt's discharge plan. Pt made aware of all of these appts. He states would like to utilize [facility] van for any that he can. Made aware [facility] van does not go to his PCP, as they are not affiliated w/[facility]. He voices understanding. Call placed to the call center re: [facility] van. They do not have any openings for either of the other appts next week. Pt made aware. Pt provided w/phone # for [employer] transportation and given print-out of all appts next week: [place], [facility], PCP, and GI & encouraged pt to place call to [employer] and set up transportation to these appts. Pt provided w/all info needed and let him know SW or CM would be available to assist if needed. Darleen BOLIVAR RN, CM
[2024-08-30] MEDS: Polyethylene Glycol 3350 17 GM PACKET PO (10:46)
--- NOTE | 2024-08-30 11:35 | PCM.PN.HOSP ---
Subjective Subjective Has been increasing shortness of breath over. Will transition to IV Lasix today Objective Data Objective Data Vital Signs: Vital Signs Temp Pulse Resp BP Pulse Ox O2 Del Method O2 Flow Rate 97.5 F L 96 20 H 108/88 H 96 Venturi Mask 6 08/30/24 10:09 08/30/24 10:09 08/30/24 10:09 08/30/24 10:09 08/30/24 10:09 08/30/24 10:09 08/30/24 10:09 FiO2 31 08/30/24 10:09 Oxygen Flow Rate (L/min) 6 Oxygen Delivery Method Venturi Mask Weight: 148 lb 8.073 oz Body Mass Index (BMI) 20.7 Intake & Output: Intake and Output for Last 24 Hours 08/29/24 08/30/24 08/31/24 03:59 03:59 03:59 Intake Total 200 / 200 300 / 300 Output Total 500 / 500 Balance -300 / -300 300 / 300 Lab / Micro Data 08/30/24 05:38 08/30/24 05:38 Labs: Laboratory Results - last 24 hr 08/29/24 11:54: POC Glucose 257 H 08/29/24 16:56: POC Glucose 386 H 08/29/24 21:38: POC Glucose 252 H 08/30/24 05:38: WBC 5.6, RBC 2.81 L, Hgb 9.4 L, Hct 29.8 L, MCV 106.0 H, MCH 33.5 H, MCHC 31.5 L, RDW Std Deviation 53.6 H, RDW Coeff of Kalpana 13.7, Plt Count 181, MPV 11.7, Immature Gran % (Auto) 0.400, Neut % (Auto) 65.1, Lymph % (Auto) 20.8, [place] % (Auto) 9.7, Eos % (Auto) 2.2, Baso % (Auto) 1.8 H, Absolute Neuts (auto) 3.6, Absolute Lymphs (auto) 1.16, Nucleated RBC % 0, Sodium 135, Potassium 5.4 H, Chloride 102, Carbon Dioxide 24.2, Anion Gap 9, BUN 13, Creatinine 1.29 H, Estim Creat Clear Calc 56.57, Est GFR (MDRD) Non-Af 63, BUN/Creatinine Ratio 10.2, Glucose 227 H, Calcium 8.7, Total Bilirubin 0.30, AST 28, ALT 12, Alkaline Phosphatase 142 H, Total Protein 6.1, Albumin 3.0 L, Globulin 3.1, Albumin/Globulin Ratio 1.0 08/30/24 06:20: POC Glucose 257 H Radiography Diagnostic Testing: Radiology Impression Chest X-Ray 08/30/24 08:50 IMPRESSION: 1. Stable moderate pleural effusions and mild cardiomegaly. 2. Emphysema. Reading Location: [facility] Rhythm Strip Rhythm Strip: Paced Rate: 108 Ectopy: None Physical Exam Narrative General: Alert, Oriented x3, Cooperative, No apparent distress HEENT: Atraumatic, PERRLA, EOMI, Normocephalic Oral: Moist Mucosa Neck: Supple, No JVD Lungs: Diminished bilateral bases, Normal air movement, No rhonchi, No wheeze, No rales Cardiovascular: Regular rate, Regular Rhythm, Normal S1, Normal S2, No murmurs Abdomen: Soft, Non Tender, Non-Distended, No Hepato-splenomegaly Extremities: Edema, Capillary Refill Less than 3 Seconds Skin: No rashes, No breakdown Musculoskeletal: No Tenderness to Palpation of Joints or Extremities Neurological: No focal neurological deficits, Motor Exam 5/5 strength throughout, Sensory exam intact to light touch and pain Psych/Mental Status: Normal Affect, Appropriate Assessment & Plan Assessment/Plan (1) Medically noncompliant: (2) History of diabetes mellitus: (3) Pleural effusion: (4) Pleural effusion associated with hepatic disorder: PLAN: Plan 1. 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 Will transition him to IV Lasix ? Repeat chest x-ray shows slight worsening of his bilateral pleural effusions on my read ? Will plan for thoracentesis today if possible and send fluid for lab work ? 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 He did have a paracentesis done on his previous admission at the end of June that removed 1.7 L of fluid, he probably has cirrhosis but has not had a liver biopsy yet ? Continue with his home blood pressure medications and his Entresto as well as his cholesterol medications ? Continue with his Farxiga both for his diabetes and his CHF 2. DM2 ? Continue with Farxiga but hold his metformin ? Continue with sliding scale insulin ? Accu-Cheks ACHS ? Will monitor make adjustments as necessary 3. GERD/chronic pancreatitis ? Stable ? Continue with PPI ? Will also continue with his Creon DVT: Shantal Charges/Coding Visit Charges Inpatient E&M: 68382 Subs Hosp L2
[2024-08-30] MEDS: 0.9% Saline Lock 10 ML Syringe IV ×2 (12:56→23:38)
[2024-08-30 13:02] LABS: Hematocrit 29.9 % (40-54); Hemoglobin 9.5 g/dL (13.0-16.5); Immature Granulocytes Count 0.000 X10^3/uL (0.0-0.0); Mean Corp Hgb Conc 31.8 g/dL (32-36); Mean Corpuscular Volume 104.9 fL (80-94); Mean Platelet Vol. 11.1 fl (6.2-12.0); NRBC Flagged by Analyzer 0 % (0-5); POSITIVE MORPHOLOGY YES; Platelet Count 181 K/mm3 (150-450); RBC Distribution Width CV 13.7 % (11.6-14.6); RBC Distribution Width SD 52.4 fl (35.1-43.9); Red Blood Count 2.85 M/mm3 (4.6-6.2); White Blood Count 5.1 K/mm3 (4.4-11.0)
[2024-08-30 13:05] LABS: Differential Indicated SCAN CRITERIA MET
[2024-08-30 13:10] LABS: Partial Thromboplast Time 30.6 Seconds (24.1-36.2); Prothrombin Time (Protime)PT. 15.5 SECONDS (11.7-14.9)
[2024-08-30 13:11] LABS: Fibrinogen 355 mg/dl (203-444)
--- NOTE | 2024-08-30 14:30 | NURSING ---
Took patients 1400 vitals with no O2 running, sats at 97% room air, pt states he still wants to wear for comfort
--- NOTE | 2024-08-30 14:31 | NURSING ---
pt off floor for thoracentesis
[2024-08-30] MEDS: Lidocaine 2% (20 ml mdv) 20 ML Vial INFILT (14:50)
--- NOTE | 2024-08-30 15:10 | RAD_ITS ---
EXAM: XR Chest, 1 View CLINICAL INDICATION: POST THORACENTESIS TECHNIQUE: Frontal view of the chest. COMPARISON: XR Chest dated 08/30/2024 FINDINGS: LUNGS AND PLEURAL SPACES: Decreasing right pleural effusion. Large left pleural effusion. No pneumothorax. HEART: Unremarkable. No cardiomegaly. MEDIASTINUM: Unremarkable. Normal mediastinal contour. BONES/JOINTS: Unremarkable. No acute fracture. TUBES, LINES AND DEVICES: Left-sided cardiac pacemaker. RAD/Chest Insp/Exp 2 View IMPRESSION: Decreasing right pleural effusion. Large left pleural effusion. No pneumothor ax. Reading Location[facility]
--- NOTE | 2024-08-30 15:15 | OP.PCM_ITS ---
Problems Associated Problem List Diagnoses (1) Pleural effusion: Multi Select Codes Radiology Radiology US Procedures: 26375 Thoracentesis Operative Report (Standard) Operative Information Date of Procedure: 08/30/24 Pre-Operative Diagnosis: Pleural effusion Post-Operative Diagnosis: Pleural effusion Surgery/Procedure Performed: Ultrasound-guided thoracentesis, right office machine servicer: No Type of Anesthesia: Local Procedure Start Time: 14:45 Procedure Stop Time: 15:10 Select all DRAINS/GRAFTS/IMPLANTS that apply: None Estimated Blood Loss: 0 Specimen collected: Yes Description of specimen(s) removed: 100 mL of josé miguel- colored fluid Description of surgery: PROCEDURE: Ultrasound Guided Thoracentesis, right ORDERING PROVIDER: Dr. Frausto INDICATION: Male, 64 years old. Pleural effusion. PROVIDER: ANGELITA Muir PROCEDURE: The risks, benefits, and alternatives to the procedure were explained to the patient. The specific risks of bleeding, infection, and pneumothorax requiring chest tube insertion were discussed and accepted. Written informed consent was obtained. Coagulation studies were reviewed preprocedure. Patient was slightly hypotensive on presentation to radiology; however, MAP >65 and patient is asymptomatic. Patient did receive IV Lasix around 1PM, likely contributing. Dr. Frausto was notified and he came to the bedside to discuss. I opted to proceed with thoracentesis and patient was agreeable as well. The patient was placed in the sitting, upright position. Ultrasonographic evaluation of the bilateral lower pleural spaces was carried out. Pleural effusions were identified bilaterally. An adequate pocket was identified in the right lower pleural space. The overlying skin was prepped with chlorhexidine and draped in sterile fashion. 2 % lidocaine was administered subcutaneously for local anesthesia. Under ultrasound guidance, a 5-Italian thoracentesis needle/catheter system was advanced into the right posterior lower pleural fluid collection. 1460 ml of josé miguel colored fluid was drained. A sample was sent to the lab for diagnostic purposes. The catheter was removed, and a sterile dressing was applied. The patient tolerated the procedure well without any immediate complications. Blood pressure remained stable throughout procedure. A chest x-ray was ordered. There was no evidence of pneumothorax. The patient returned to his inpatient bed. IMPRESSION: Successful ultrasound guided thoracentesis of right pleural effusion. Surgical Findings: None Complications Complications: No
[2024-08-30 16:30] LABS: Body Fluid Mononuclear WBC # 0.148 10^3/uL; Body Fluid Mononuclear WBC % 68.8 %; Body Fluid Polynuclear WBC # 0.067 10^3/uL; Body Fluid Polynuclear WBC % 31.2 %; Red Cell Count/Body Fluid 0.010 10^6/ul; White Blood Count/Body Fluid 0.215 10^3/uL
[2024-08-30 16:37] LABS: Auto B Fluid Analyzer BKGD Ct COUNTS W/IN LIMITS (W/IN LIMITS); Source- Body Fluid THORACENTESIS
[2024-08-30 16:43] LABS: Appearance/Body Fluid TURBID; Color/Body Fluid SLIGHTLY PINK
[2024-08-30] MEDS: Glucerna Shake 120 ML LIQUID PO ×2 (16:45→23:42)
--- NOTE | 2024-08-30 17:20 | CASEMGMT ---
Addendum entered by Rosalia Robins 08/30/24 18:16: Social Work- SW completed directives with pt naming dtr Terra as primary HCPOA. Copy placed in chart. Copy and original provided to pt. MAEGAN Simpson Original Note: Social Work- SW met with pt to provide transportation information and information on directives. Pt called to schedule transportation through [place] for appointments that RNCM scheduled for pt. Pt reports that he successfully scheduled all his appointments over the course of an hour. Pt would like to complete directives. SW will follow up to complete. MAEGAN Simpson
[2024-08-30 18:41] LABS: LDH 366 U/L (87-241)
[2024-08-30 18:58] LABS: Glucose, Body Fluid 224 mg/dL (Not Establ.)
[2024-08-30 21:20] LABS: Body Fluid QC Type(s) BF1Q; Neutrophil (Segs) 39 %
[2024-08-30] MEDS: Insulin Glargine-YFGN 100 UNIT/ML Pen 10 UNIT SC (23:36)
--- NOTE | 2024-08-30 23:51 | PCM.HOSP.N ---
Hospitalist Note Patient BP low, noted trending similar later in the day, no worsened 76/56, asymptomatic, will administer 500 cc IVF bolus and reassess. Had thoracentesis today; however, from discussion with staff had been nearly held secondary to his pressure at that time also being low.
[2024-08-31] VITALS (39 sets, daily range): BP systolic 74–120; BP diastolic 52–91; PULSE 62–102; RESP 17–32; TEMP 36.5–37.1; O2SAT 75–100; BMI 21.1
[2024-08-31] MEDS: MELATONIN 3 MG TABLET PO (00:55)
[2024-08-31] MEDS: 0.9% Saline Lock 10 ML Syringe IV ×2 (00:56→06:56)
[2024-08-31] MEDS: 0.9% Normal Saline (500mL Bag) 500 ML IV (00:57)
[2024-08-31] MEDS: 0.9% Normal Saline (500mL Bag) 500 ML 999 ML IV (04:41)
[2024-08-31 06:13] LABS: Hematocrit 27.5 % (40-54); Hemoglobin 8.8 g/dL (13.0-16.5); Immature Granulocytes Count 0.020 X10^3/uL (0.0-0.0); Mean Corp Hgb Conc 32.0 g/dL (32-36); Mean Corpuscular Volume 105.8 fL (80-94); Mean Platelet Vol. 11.6 fl (6.2-12.0); NRBC Flagged by Analyzer 0 % (0-5); POSITIVE MORPHOLOGY YES; Platelet Count 174 K/mm3 (150-450); RBC Distribution Width CV 14.0 % (11.6-14.6); RBC Distribution Width SD 54.6 fl (35.1-43.9); Red Blood Count 2.60 M/mm3 (4.6-6.2); White Blood Count 6.5 K/mm3 (4.4-11.0)
[2024-08-31] MEDS: Norepinephrine 8 MG in 0.9% Normal Saline (250mL Bag) 242 ML 9.4 MG CONT INF (06:17)
[2024-08-31 06:25] LABS: Differential Indicated SCAN CRITERIA MET
--- NOTE | 2024-08-31 06:41 | EX.PCM.CONCC ---
Assessment & Plan Assessment/Plan (1) Pleural effusion: PLAN: Plan RECOMMENDATIONS: 1. Continue Levophed to maintain hemodynamic stability. 2. Start scheduled midodrine TID. 3. Hold baseline antihypertensives and diuretics for now. 4. Avoid nephrotoxic medications. 5. Continue Creon and Protonix. 6. Start scheduled bronchodilators. 7. Consider GI consultation to aid in cirrhosis management and obtain liver biopsy. IMPRESSIONS: 1. Hypovolemic shock Most likely secondary to Entresto administration coupled with judicious diuretic use, leading to intravascular volume depletion and third space loss into the extravascular space in the setting of cirrhosis. I would plan to hold the patient's Entresto for now and diuretics, pending stability in his hemodynamic status. Scheduled midodrine will also be initiated. 2. Hypoxemia Most likely related to underlying pleural effusions, which are likely the consequence of decompensated heart failure and cirrhosis with recurrent ascites. The patient may ultimately require a repeat paracentesis, but ultimately needs follow-up with gastroenterology to address his underlying cirrhosis and a liver biopsy. Lastly, the patient may also have an underlying component of obstructive lung disease, given his tobacco dependency history. Therefore, we will initiate scheduled bronchodilator therapy. Continue to wean supplemental oxygen to maintain saturations at or above 90%. 3. Acute kidney injury Most likely prerenal in etiology in the setting of #1. Unfortunately, the patient will be unable to tolerate significant volume resuscitation, given his underlying CHF and cirrhosis. Will plan to continue vasopressor support for now. Continue to monitor urine output. No current indication for renal replacement therapy. 4. History of chronic alcoholic pancreatitis with recurrent ascites and pleural effusions/questionable COPD/tobacco dependency/CHF/valvular heart disease Complicates care, management, recovery and prognosis. Continue supportive measures as noted above. Scheduled bronchodilators will be initiated today. TIME: 40 minutes of critical care time, independent of procedures, was spent addressing the patient's hypovolemic shock, hypoxemia, acute kidney injury, review of all data and collaboration with the care team. HPI Consult Data Date of Consult: 08/31/24 HPI Narrative HPI Narrative: The patient is a 64-year-old male, with a history as outlined below, who presented initially to the emergency department on August 28 with complaints of worsening dyspnea. The patient has a documented history of chronic alcoholic pancreatitis with recurrent ascites and pleural effusions and underlying concern for cirrhosis. In addition, he has a self-reported history of COPD and chronic tobacco dependency, but stated that he does not utilize supplemental oxygen at his baseline. In addition, the patient has known heart failure with reduced ejection fraction along with valvular heart disease status post bovine aortic valve at [facility]. Surface echocardiogram from June 2024 demonstrated an ejection fraction of 35 to 40% with moderate to severe aortic stenosis. On presentation to the emergency department, the patient was initially noted to be afebrile and hemodynamically stable. Nevertheless, he was noted to be tachycardic and tachypneic, but was maintaining appropriate oxygen saturations on room air. Laboratory evaluation revealed a normal white blood cell count. Hemoglobin was noted to be 10.1 g/dL with a platelet count of 181,000. D-dimer was mildly elevated at 1.52 with an INR of 1.2. Chemistry profile was notable for a potassium of 3.1 with a creatinine of 1.1. Troponin was elevated at 67. AST and ALT were within normal limits. Chest x-ray demonstrated evidence of bilateral pleural effusions. The patient was initially admitted to the hospital and continued on diuretics, with tentative plans to perform thoracentesis. On review of the patient's medical record, the patient did receive p.o. Lasix on August 29 and . In addition, he received low-dose metoprolol and was also maintained on Entresto and Aldactone. In addition, the patient yesterday was given 2 one-time doses of 40 mg of IV Lasix. He also underwent an ultrasound-guided thoracentesis on the afternoon of August 30 with 1.46 L of fluid removed from the right hemithorax. As a consequence of all of the aforementioned, the patient became increasingly hypotensive on the floor and was subsequently transferred to the medical intensive care unit where he was initiated on low-dose vasopressor support. [facility] Medical History Malnutrition Pancytopenia Medically noncompliant Thrombocytopenia Chronic pancreatitis Macrocytosis associated with alcohol Ascites due to alcoholic cirrhosis Chronic diarrhea Chronic alcohol abuse Abdominal ascites MALIK (acute kidney injury) Seizures Alcoholic hepatitis Chronic pancreatitis Gastric wall thickening Alcohol dependence Anxiety Diabetes Pancreatitis Myocardial infarct Pacemaker AAA (abdominal aortic aneurysm) Admitted to alcohol detoxification center Alcohol abuse Hx of hypercholesterolemia History of diabetes mellitus Alcohol dependence Substance abuse Smoker Alcoholism Right bundle branch block (RBBB) Non-sustained ventricular tachycardia Thoracic aortic aneurysm SVT (supraventricular tachycardia) Ascending aortic dissection (~2005) Pure hypercholesterolemia Adrenal nodule Hiatal hernia Left carotid bruit Cardiac pacemaker in situ (~06/2016) Essential hypertension Pacemaker Sick sinus syndrome Tobacco use HTN (hypertension) Diabetes mellitus, type II Home Medications ?Medication ?Instructions ?Recorded ?Last Taken ?Type atorvastatin 10 mg tablet 10 mg PO DAILY CHOLESTEROL 10/17/20 07/31/24 History dapagliflozin propanediol 10 mg 10 mg PO DAILY DIABETES 09/30/21 07/31/24 History tablet (Farxiga) multivitamin 1 tab PO DAILY SUPPLEMENT 11/11/21 07/31/24 History gabapentin 300 mg capsule 300 mg PO DAILY NEUROPATHY 11/14/22 07/31/24 History metformin 500 mg tablet,extended 500 mg PO DAILY DIABETES 11/15/22 07/31/24 History release 24 hr folic acid 1 mg tablet 1 mg PO DAILY@0800 supplement #0 05/20/23 07/31/24 Rx tabs thiamine HCl (vitamin B1) 100 mg 100 mg PO DAILYCM vitamin #0 tabs 05/20/23 07/31/24 Rx tablet (Vitamin B-1) pantoprazole 40 mg tablet,delayed 40 mg PO BID reflux #60 tabs 06/27/23 07/31/24 Rx release ferrous sulfate 325 mg (65 mg 325 mg PO DAILY supplement 06/30/24 07/31/24 History iron) tablet (FeroSul) metoprolol succinate 25 mg 12.5 mg (1/2 x 25 mg) PO DAILY 07/06/24 07/31/24 Rx tablet,extended release 24 hr blood pressure 30 days #15 tabs spironolactone 25 mg tablet 25 mg PO DAILY diuretic 30 days 07/06/24 07/31/24 Rx #30 tabs L.acidophil,salivari-Bifido 1 cap PO BID Probiotic 08/01/24 07/31/24 History bifidum-Strep thermoph 175 mg capsule furosemide 20 mg tablet 40 mg (2 x 20 mg) PO DAILY 30 days 08/03/24 Unknown Rx #60 tabs sacubitril 24 mg-valsartan 26 mg 1 tab PO BID #60 tabs 08/03/24 Unknown Rx tablet (Entresto) xraxtf-pevtvzbh-cphpokg 1 cap PO BIDCM 08/29/24 Unknown History 24,000-76,000-120,000 unit capsule,delayed rel (Creon) Allergy/AdvReac Type Severity Reaction Status Date / Time No Known Allergies Allergy Verified 08/01/24 22:20 Family History Father CAD (coronary artery disease) Mother Dementia Surgical History History of aortic aneurysm repair (~2016) H/O cardiac catheterization History of cataract surgery History of hernia repair History of aortic valve replacement with bioprosthetic valve (~2016) H/O aortic valve replacement Social History household members: family housing: house Smoking Status: Light Smoker (<10/day) alcohol intake: current alcohol intake frequency: 0-2 drinks per day details: Reports currently ~ 2 tall boys daily. substance use type: former substance user caffeine: Yes Type: coffee Number of servings: 3 ROS ROS Narrative 10 systems were reviewed with pertinent positives as noted in the HPI above. Physical Exam Const alert, oriented x3 and no apparent distress General Appearance: cooperative and ill appearing Positive for chronically HEENT normocephalic and head/scalp atraumatic Eyes PERRL, EOMs intact bilaterally and conjunctivae normal Neck supple General: trachea midline Chest inspection of chest normal Resp normal respiratory effort Auscultation: diminished lung sounds Cardio regular rate and regular rhythm Heart Sounds: murmur GI soft to palpation and non-tender Inspection: abdominal distention Extremity General Extremity: edema; Negative for clubbing Skin no rashes or lesions noted Neuro CN's II-XII intact bilaterally, moves all extremities and no focal motor deficits Psych cooperative and affect normal Lab / Micro Data 08/31/24 05:47 08/31/24 05:47 Labs: Laboratory Results - last 24 hr 08/30/24 05:38: Lactate Dehydrogenase 366 H 08/30/24 10:42: POC Glucose 395 H 08/30/24 12:49: WBC 5.1, RBC 2.85 L, Hgb 9.5 L, Hct 29.9 L, MCV 104.9 H, MCH 33.3 H, MCHC 31.8 L, RDW Std Deviation 52.4 H, RDW Coeff of [place] 13.7, Plt Count 181, MPV 11.1, Immature Gran % (Auto) 0.000, Neut % (Auto) 66.4, Lymph % (Auto) 23.3, [place] % (Auto) 6.7, Eos % (Auto) 1.8, Baso % (Auto) 1.8 H, Absolute Neuts (auto) 3.4, Absolute Lymphs (auto) 1.18, Nucleated RBC % 0, PT 15.5 H, INR 1.2, APTT 30.6, Fibrinogen 355 08/30/24 14:55: Fluid Source THORACENTESIS, Fluid Color SLIGHTLY PINK, Fluid Appearance TURBID, Fluid WBC 0.215, Fluid RBC 0.010, Fluid Tot Cell Count 0.243, Fld Polynuclear WBCs # 0.067, Fld Polynuclear WBCs % 31.2, Fluid Mononuclear WBCs 0.148, Fld Mononuclear WBCs % 68.8, Fluid Neutrophils 39, Fluid Lymphocytes 25, Fluid Monocytes 9, Fluid Macrophages 21, Fld Mesothelial Cells 6, Fl Pathologist Comment May follow, Fluid Glucose 224, Fluid Total Protein 1.2, Fluid LDH 84, Fluid Comment 2 SEE COMMENT 08/30/24 23:29: POC Glucose 257 H 08/31/24 05:47: WBC 6.5, RBC 2.60 L, Hgb 8.8 L, Hct 27.5 L, MCV 105.8 H, MCH 33.8 H, MCHC 32.0, RDW Std Deviation 54.6 H, RDW Coeff of [place] 14.0, Plt Count 174, MPV 11.6, Immature Gran % (Auto) 0.300, Neut % (Auto) 59.0, Lymph % (Auto) 28.2, [place] % (Auto) 9.6, Eos % (Auto) 1.7, Baso % (Auto) 1.2 H, Absolute Neuts (auto) 3.8, Absolute Lymphs (auto) 1.82, Nucleated RBC % 0 Rhythm Strip Rhythm Strip: Paced Rate: 108 Ectopy: None Imaging Radiology Impression Chest X-Ray 08/30/24 08:50 IMPRESSION: 1. Stable moderate pleural effusions and mild cardiomegaly. 2. Emphysema. Reading Location: [id number] Chest X-Ray 08/30/24 15:10 IMPRESSION: Decreasing right pleural effusion. Large left pleural effusion. No pneumothorax. Reading Location: [facility] Charges/Coding Procedures Hospitalists Procedures: 17872 Critical Care 1st Hr
[2024-08-31 06:52] LABS: Anion Gap 8 (5-15); BUN 20 mg/dL (4-19); BUN/Creat Ratio 12.9 RATIO (10-20); Calcium,Total 7.9 mg/dL (7.6-11.0); Carbon Dioxide 23.6 mmol/L (21.0-32.0); Chloride 106 mmol/L (98-108); Estimated Creatinine Clearance 48.12 ml/min (50-250); Glucose 48 mg/dL (70-99); Potassium 5.0 mmol/L (3.3-5.1)
--- NOTE | 2024-08-31 07:03 | NURSING ---
Glucose noted to be 48 on AM labs. Fingerstick blood glucose checked and it was 42. Patient given orange juice at this time.
[2024-08-31] MEDS: Creon 24,000 unit DR Capsule 1 CAP PO ×2 (08:17→17:39)
[2024-08-31] MEDS: Lactobacillis Acidophilus 1 CAP PO ×2 (08:18→22:58)
[2024-08-31] MEDS: Thiamine Hydrochloride 100 MG Tablet PO (08:18)
[2024-08-31] MEDS: Metoprolol(XL)Succ 25 MG Tablet 12.5 MG PO (08:19)
--- NOTE | 2024-08-31 08:19 | PCM.PN.HOSP ---
Subjective Subjective Placed in the ICU overnight for hypotension, unclear etiology not quite sure that he was over diuresed as his oxygen requirements have now increased after his 1 L fluid bolus Objective Data Objective Data Vital Signs: Vital Signs Temp Pulse Resp BP Pulse Ox O2 Del Method O2 Flow Rate 97.7 F L 85 19 H 105/80 97 Nasal Cannula 4 08/31/24 05:21 08/31/24 07:00 08/31/24 07:00 08/31/24 07:00 08/31/24 07:00 08/31/24 07:00 08/31/24 07:00 FiO2 31 08/30/24 10:09 Oxygen Flow Rate (L/min) 4 Oxygen Delivery Method Nasal Cannula Weight: 150 lb 12.739 oz Body Mass Index (BMI) 21.1 Intake & Output: Intake and Output for Last 24 Hours 08/30/24 08/31/24 09/01/24 03:59 03:59 03:59 Intake Total 200 / 200 2200 / 2200 506.74 / 506.74 Output Total 500 / 500 3220 / 3220 Balance -300 / -300 -1020 / -1020 506.74 / 506.74 Lab / Micro Data 08/31/24 05:47 08/31/24 05:47 Labs: Laboratory Results - last 24 hr 08/30/24 05:38: Lactate Dehydrogenase 366 H 08/30/24 10:42: POC Glucose 395 H 08/30/24 12:49: WBC 5.1, RBC 2.85 L, Hgb 9.5 L, Hct 29.9 L, MCV 104.9 H, MCH 33.3 H, MCHC 31.8 L, RDW Std Deviation 52.4 H, RDW Coeff of [place] 13.7, Plt Count 181, MPV 11.1, Immature Gran % (Auto) 0.000, Neut % (Auto) 66.4, Lymph % (Auto) 23.3, [place] % (Auto) 6.7, Eos % (Auto) 1.8, Baso % (Auto) 1.8 H, Absolute Neuts (auto) 3.4, Absolute Lymphs (auto) 1.18, Nucleated RBC % 0, PT 15.5 H, INR 1.2, APTT 30.6, Fibrinogen 355 08/30/24 14:55: Fluid Source THORACENTESIS, Fluid Color SLIGHTLY PINK, Fluid Appearance TURBID, Fluid WBC 0.215, Fluid RBC 0.010, Fluid Tot Cell Count 0.243, Fld Polynuclear WBCs # 0.067, Fld Polynuclear WBCs % 31.2, Fluid Mononuclear WBCs 0.148, Fld Mononuclear WBCs % 68.8, Fluid Neutrophils 39, Fluid Lymphocytes 25, Fluid Monocytes 9, Fluid Macrophages 21, Fld Mesothelial Cells 6, Fl Pathologist Comment May follow, Fluid Glucose 224, Fluid Total Protein 1.2, Fluid LDH 84, Fluid Comment 2 SEE COMMENT 08/30/24 23:29: POC Glucose 257 H 08/31/24 05:47: WBC 6.5, RBC 2.60 L, Hgb 8.8 L, Hct 27.5 L, MCV 105.8 H, MCH 33.8 H, MCHC 32.0, RDW Std Deviation 54.6 H, RDW Coeff of [place] 14.0, Plt Count 174, MPV 11.6, Immature Gran % (Auto) 0.300, Neut % (Auto) 59.0, Lymph % (Auto) 28.2, [place] % (Auto) 9.6, Eos % (Auto) 1.7, Baso % (Auto) 1.2 H, Absolute Neuts (auto) 3.8, Absolute Lymphs (auto) 1.82, Nucleated RBC % 0, Sodium 138, Potassium 5.0, Chloride 106, Carbon Dioxide 23.6, Anion Gap 8, BUN 20 H, Creatinine 1.54 H, Estim Creat Clear Calc 48.12 L, Est GFR (MDRD) Non-Af 51 L, BUN/Creatinine Ratio 12.9, Glucose 48 L, Calcium 7.9 08/31/24 06:58: POC Glucose 42 L* 08/31/24 07:20: POC Glucose 51 L Radiography Diagnostic Testing: Radiology Impression Chest X-Ray 08/30/24 08:50 IMPRESSION: 1. Stable moderate pleural effusions and mild cardiomegaly. 2. Emphysema. Reading Location: [id number] Chest X-Ray 08/30/24 15:10 IMPRESSION: Decreasing right pleural effusion. Large left pleural effusion. No pneumothorax. Reading Location: [facility] Rhythm Strip Rhythm Strip: Paced Rate: 108 Ectopy: None Physical Exam Narrative General: Alert, Oriented x3, Cooperative, No apparent distress HEENT: Atraumatic, PERRLA, EOMI, Normocephalic Oral: Moist Mucosa Neck: Supple, No JVD Lungs: Diminished bilateral bases, Normal air movement, No rhonchi, No wheeze, No rales Cardiovascular: Regular rate, Regular Rhythm, Normal S1, Normal S2, No murmurs Abdomen: Soft, Non Tender, Non-Distended, No Hepato-splenomegaly Extremities: Edema, Capillary Refill Less than 3 Seconds Skin: No rashes, No breakdown Musculoskeletal: No Tenderness to Palpation of Joints or Extremities Neurological: No focal neurological deficits, Motor Exam 5/5 strength throughout, Sensory exam intact to light touch and pain Psych/Mental Status: Flat Assessment & Plan Assessment/Plan (1) Medically noncompliant: (2) History of diabetes mellitus: (3) Pleural effusion: (4) Pleural effusion associated with hepatic disorder: PLAN: Plan 1. 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 Will hold further diuresis, he was given a liter of fluid yesterday and now his oxygen requirements are higher ? Continue with pressors ? Appreciate code number stamper assistance ? He is not septic ? Repeat chest x-ray shows slight worsening of his bilateral pleural effusions on my read ? Thoracentesis had 1.4 L removed fluid studies indicated transudative effusion likely related to his heart failure and liver disease. ? 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 He did have a paracentesis done on his previous admission at the end of June that removed 1.7 L of fluid, he probably has cirrhosis but has not had a liver biopsy yet ? Continue with his home blood pressure medications and his Entresto as well as his cholesterol medications ? Continue with his Farxiga both for his diabetes and his CHF 2. DM2 ? Continue with Farxiga but hold his metformin ? Continue with sliding scale insulin ? Accu-Cheks ACHS ? Will monitor make adjustments as necessary 3. GERD/chronic pancreatitis ? Stable ? Continue with PPI ? Will also continue with his Creon DVT: [place] Charges/Coding Visit Charges Inpatient E&M: 38586 Subs Hosp L2
[2024-08-31] MEDS: Glucerna Shake 120 ML LIQUID PO ×2 (11:06→15:22)
[2024-08-31 16:27] LABS: Pathologist Comment/Body Fluid Reviewed
--- NOTE | 2024-08-31 17:36 | PCM.HP.STD ---
[facility] - General General Date of Admission: 08/29/24 Date of Service: 08/31/24 Chief Complaint: Shortness of breath [facility] Narrative ANALILIA TALLEY, is a 64 M who presents with worsening shortness of breath. I saw the patient for the first time last month for possible decompensated liver disease. He has a chronic bicytopenia with a macrocytic anemia. He also has a history of alcohol abuse without previous diagnosis of cirrhosis. He has had persistent imaging over the last year which had showed intermittent bilateral effusions and intra-abdominal ascites. He had an an echo a year ago that showed a EF of 70% with no significant mitral regurgitation or tricuspid regurgitation and no signs of significant pulmonary hypertension. The latest echocardiographic evaluation here revealed the significant change in the EF from previous with moderate LV systolic dysfunction Ejection fraction in the range of 35-40%. Severe concentric left ventricular hypertrophy with moderate to severe thoracic valve stenosis Aortic valve area 1.1 cm2 Maximal gradient across aortic valve is 60 mmHg with a mean gradient of 40.2 mmHg. Impaired LV relaxation consistent with diastolic dysfunction. With a mean gradient of 40 mmHg. After being readmitted for significant protein, nutrition, weight loss and worsening abdominal distention he underwent paracentesis this weekend on 07/01/2024. He at 1.7 L of serosanguineous fluid removed. He also carries a past medical history of insulin-dependent diabetes, chronic pancreatitis secondary to alcohol and no recent endoscopy there was some type I gastric varices that were seen. There are also with signs of portal gastropathy seen throughout the stomach. Last year there was some suspicion of a secondary cause of his ascites other than alcohol such as nephrotic syndrome. However at that time he had no significant proteinuria. His stool was not checked for alpha-1 antitrypsin. HIV testing was also not performed. It appears he has a history of underlying cardiovascular disease which over time has included more than 1 cardiothoracic surgery procedure for a history of underlying ascending aortic aneurysm as well as aortic valvular disease. It appears that he underwent surgical procedures both at [facility] in [place], [place] as well as at the [facility] Main campus. Over time his aortic valve was repaired/replaced twice initially with a mechanical prosthesis and subsequently with a bioprosthesis. Yesterday he had 1700 mL of transudative fluid removed from his right lung. I was asked to see him regarding possible cirrhosis [facility] Medical History Malnutrition Pancytopenia Medically noncompliant Thrombocytopenia Chronic pancreatitis Macrocytosis associated with alcohol Ascites due to alcoholic cirrhosis Chronic diarrhea Chronic alcohol abuse Abdominal ascites MALIK (acute kidney injury) Seizures Alcoholic hepatitis Chronic pancreatitis Gastric wall thickening Alcohol dependence Anxiety Diabetes Pancreatitis Myocardial infarct Pacemaker AAA (abdominal aortic aneurysm) Admitted to alcohol detoxification center Alcohol abuse Hx of hypercholesterolemia History of diabetes mellitus Alcohol dependence Substance abuse Smoker Alcoholism Right bundle branch block (RBBB) Non-sustained ventricular tachycardia Thoracic aortic aneurysm SVT (supraventricular tachycardia) Ascending aortic dissection (~2005) Pure hypercholesterolemia Adrenal nodule Hiatal hernia Left carotid bruit Cardiac pacemaker in situ (~06/2016) Essential hypertension Pacemaker Sick sinus syndrome Tobacco use HTN (hypertension) Diabetes mellitus, type II Home Medications ?Medication ?Instructions ?Recorded ?Last Taken ?Type atorvastatin 10 mg tablet 10 mg PO DAILY CHOLESTEROL 10/17/20 07/31/24 History dapagliflozin propanediol 10 mg 10 mg PO DAILY DIABETES 09/30/21 07/31/24 History tablet (Farxiga) multivitamin 1 tab PO DAILY SUPPLEMENT 11/11/21 07/31/24 History gabapentin 300 mg capsule 300 mg PO DAILY NEUROPATHY 11/14/22 07/31/24 History metformin 500 mg tablet,extended 500 mg PO DAILY DIABETES 11/15/22 07/31/24 History release 24 hr folic acid 1 mg tablet 1 mg PO DAILY@0800 supplement #0 05/20/23 07/31/24 Rx tabs thiamine HCl (vitamin B1) 100 mg 100 mg PO DAILYCM vitamin #0 tabs 05/20/23 07/31/24 Rx tablet (Vitamin B-1) pantoprazole 40 mg tablet,delayed 40 mg PO BID reflux #60 tabs 06/27/23 07/31/24 Rx release ferrous sulfate 325 mg (65 mg 325 mg PO DAILY supplement 06/30/24 07/31/24 History iron) tablet (FeroSul) metoprolol succinate 25 mg 12.5 mg (1/2 x 25 mg) PO DAILY 07/06/24 07/31/24 Rx tablet,extended release 24 hr blood pressure 30 days #15 tabs spironolactone 25 mg tablet 25 mg PO DAILY diuretic 30 days 07/06/24 07/31/24 Rx #30 tabs L.acidophil,salivari-Bifido 1 cap PO BID Probiotic 08/01/24 07/31/24 History bifidum-Strep thermoph 175 mg capsule furosemide 20 mg tablet 40 mg (2 x 20 mg) PO DAILY 30 days 08/03/24 Unknown Rx #60 tabs sacubitril 24 mg-valsartan 26 mg 1 tab PO BID #60 tabs 08/03/24 Unknown Rx tablet (Entresto) vebivk-errkocyw-ssuykai 1 cap PO BIDCM 08/29/24 Unknown History 24,000-76,000-120,000 unit capsule,delayed rel (Creon) Allergy/AdvReac Type Severity Reaction Status Date / Time No Known Allergies Allergy Verified 08/01/24 22:20 Family History Father CAD (coronary artery disease) Mother Dementia Surgical History History of aortic aneurysm repair (~2016) H/O cardiac catheterization History of cataract surgery History of hernia repair History of aortic valve replacement with bioprosthetic valve (~2016) H/O aortic valve replacement Social History household members: family housing: house Smoking Status: Light Smoker (<10/day) alcohol intake: current alcohol intake frequency: 0-2 drinks per day details: Reports currently ~ 2 tall boys daily. substance use type: former substance user caffeine: Yes Type: coffee Number of servings: 3 ROS Constitutional Constitutional: Denies fatigue, fever(s), poor appetite, weight gain or weight loss Gastrointestinal Gastrointestinal: Denies belching, bloating, change in bowel habits, change in stool character, chewing difficulty, coffee ground emesis, constipation, cramping, diarrhea, dyspepsia, dysphagia, early satiety, excessive flatus, fecal incontinence, heartburn, hematemesis, hematochezia, hemorrhoids, loose stools, melena, nausea, odynophagia, rectal bleeding, tenesmus, vomiting or weight changes Vital Signs Vital Signs Vital Signs: 08/30/24 22:00 08/30/24 23:15 08/30/24 23:21 Temperature 98.7 F Temperature Source Oral Pulse Rate 87 Pulse Strength Normal (2+) Respiratory Rate 22 H Respiratory Effort Normal Non-Labored Respiratory Depth Normal Respiratory Pattern Normal Blood Pressure 76/65 L Blood Pressure Mean 68 Blood Pressure Source Monitor Blood Pressure Position Semi-Fowlers Blood Pressure Location Left Arm Pulse Ox 92 Oxygen Delivery Method Room Air Room Air Oxygen Flow Rate (L/min) 08/31/24 00:52 08/31/24 01:00 08/31/24 04:03 Temperature 98.0 F 98.7 F Temperature Source Oral Oral Pulse Rate 98 81 Pulse Strength Respiratory Rate 20 H 22 H Respiratory Effort Normal Non-Labored Respiratory Depth Respiratory Pattern Blood Pressure 93/77 74/64 L Blood Pressure Mean 82 67 Blood Pressure Source Monitor Monitor Blood Pressure Position Sitting Semi-Fowlers Blood Pressure Location Left Arm Right Arm Pulse Ox 97 93 Oxygen Delivery Method Room Air Room Air Room Air Oxygen Flow Rate (L/min) 08/31/24 04:08 08/31/24 05:20 08/31/24 05:21 Temperature 97.7 F L Temperature Source Oral Pulse Rate 78 Pulse Strength Respiratory Rate 20 H Respiratory Effort Respiratory Depth Respiratory Pattern Blood Pressure 77/62 L Blood Pressure Mean 67 Blood Pressure Source Monitor Blood Pressure Position Semi-Fowlers Blood Pressure Location Left Arm Pulse Ox 75 93 Oxygen Delivery Method Room Air Room Air Nasal Cannula Oxygen Flow Rate (L/min) 4 08/31/24 05:39 08/31/24 06:00 08/31/24 06:15 Temperature Temperature Source Pulse Rate 80 Pulse Strength Respiratory Rate 28 H Respiratory Effort Short of Breath Normal Non-Labored Respiratory Depth Normal Respiratory Pattern Normal Blood Pressure 101/73 Blood Pressure Mean 82 Blood Pressure Source Monitor Blood Pressure Position Semi-Fowlers Blood Pressure Location Right Arm Pulse Ox 95 Oxygen Delivery Method Nasal Cannula Nasal Cannula Nasal Cannula Oxygen Flow Rate (L/min) 4 4 4 08/31/24 06:17 08/31/24 06:30 08/31/24 06:45 Temperature Temperature Source Pulse Rate 75 80 74 Pulse Strength Respiratory Rate 26 H 28 H 22 H Respiratory Effort Respiratory Depth Respiratory Pattern Blood Pressure 86/68 L 99/65 100/80 Blood Pressure Mean 74 76 86 Blood Pressure Source Monitor Monitor Monitor Blood Pressure Position Semi-Fowlers Semi-Fowlers Semi-Fowlers Blood Pressure Location Right Arm Right Arm Right Arm Pulse Ox 96 95 95 Oxygen Delivery Method Nasal Cannula Nasal Cannula Nasal Cannula Oxygen Flow Rate (L/min) 4 4 4 08/31/24 07:00 08/31/24 07:00 08/31/24 08:00 Temperature Temperature Source Pulse Rate 85 85 89 Pulse Strength Respiratory Rate 19 H 27 H Respiratory Effort Respiratory Depth Respiratory Pattern Blood Pressure 105/80 102/89 H Blood Pressure Mean 88 93 Blood Pressure Source Monitor Monitor Blood Pressure Position Semi-Fowlers Sitting Blood Pressure Location Right Arm Right Arm Pulse Ox 97 99 Oxygen Delivery Method Nasal Cannula Nasal Cannula Oxygen Flow Rate (L/min) 4 4 08/31/24 08:00 08/31/24 08:19 08/31/24 08:38 Temperature Temperature Source Pulse Rate 89 98 Pulse Strength Respiratory Rate 27 H Respiratory Effort Normal Respiratory Depth Shallow Respiratory Pattern Tachypnea Blood Pressure 102/89 H Blood Pressure Mean Blood Pressure Source Blood Pressure Position Blood Pressure Location Pulse Ox 96 Oxygen Delivery Method Nasal Cannula Nasal Cannula Oxygen Flow Rate (L/min) 4 3 08/31/24 09:00 08/31/24 09:30 08/31/24 09:37 Temperature Temperature Source Pulse Rate 76 87 87 Pulse Strength Respiratory Rate 20 H 28 H 28 H Respiratory Effort Respiratory Depth Respiratory Pattern Blood Pressure 104/80 106/91 H 104/79 Blood Pressure Mean 88 96 87 Blood Pressure Source Monitor Monitor Monitor Blood Pressure Position Sitting Sitting Sitting Blood Pressure Location Right Arm Right Arm Right Arm Pulse Ox 97 98 97 Oxygen Delivery Method Nasal Cannula Nasal Cannula Nasal Cannula Oxygen Flow Rate (L/min) 3 3 3 08/31/24 09:45 08/31/24 10:00 08/31/24 10:00 Temperature Temperature Source Pulse Rate 92 81 Pulse Strength Normal (2+) Respiratory Rate 30 H 23 H Respiratory Effort Respiratory Depth Respiratory Pattern Blood Pressure 106/86 H 95/81 H Blood Pressure Mean 92 85 Blood Pressure Source Monitor Monitor Blood Pressure Position Semi-Fowlers Semi-Fowlers Blood Pressure Location Right Arm Right Arm Pulse Ox 94 97 Oxygen Delivery Method Nasal Cannula Nasal Cannula Oxygen Flow Rate (L/min) 1 1 08/31/24 10:15 08/31/24 10:46 08/31/24 11:00 Temperature Temperature Source Pulse Rate 81 71 78 Pulse Strength Respiratory Rate 32 H 18 28 H Respiratory Effort Respiratory Depth Respiratory Pattern Normal Blood Pressure 107/75 106/73 Blood Pressure Mean 85 84 Blood Pressure Source Monitor Monitor Blood Pressure Position Semi-Fowlers Semi-Fowlers Blood Pressure Location Right Arm Right Arm Pulse Ox 97 94 Oxygen Delivery Method Nasal Cannula Nasal Cannula Oxygen Flow Rate (L/min) 2 2 08/31/24 11:00 08/31/24 12:00 08/31/24 12:00 Temperature Temperature Source Pulse Rate 98 90 Pulse Strength Respiratory Rate 23 H Respiratory Effort Normal Respiratory Depth Shallow Respiratory Pattern Tachypnea Blood Pressure 120/89 H Blood Pressure Mean 99 Blood Pressure Source Monitor Blood Pressure Position Sitting Blood Pressure Location Right Arm Pulse Ox 95 Oxygen Delivery Method Nasal Cannula Nasal Cannula Oxygen Flow Rate (L/min) 2 1 08/31/24 13:00 08/31/24 13:07 08/31/24 13:15 Temperature Temperature Source Pulse Rate 70 70 70 Pulse Strength Respiratory Rate 19 H 20 H 20 H Respiratory Effort Respiratory Depth Respiratory Pattern Blood Pressure 81/52 L 86/57 L 90/63 Blood Pressure Mean 61 66 72 Blood Pressure Source Monitor Monitor Monitor Blood Pressure Position Supine Supine Supine Blood Pressure Location Right Arm Right Arm Right Arm Pulse Ox 97 99 97 Oxygen Delivery Method Nasal Cannula Nasal Cannula Nasal Cannula Oxygen Flow Rate (L/min) 1 1 1 08/31/24 13:30 08/31/24 13:38 08/31/24 13:45 Temperature Temperature Source Pulse Rate 68 70 68 Pulse Strength Respiratory Rate 22 H 21 H 22 H Respiratory Effort Respiratory Depth Respiratory Pattern Blood Pressure 88/65 L 87/65 L 87/64 L Blood Pressure Mean 72 72 71 Blood Pressure Source Monitor Monitor Monitor Blood Pressure Position Supine Supine Supine Blood Pressure Location Right Arm Right Arm Right Arm Pulse Ox 97 98 96 Oxygen Delivery Method Nasal Cannula Nasal Cannula Nasal Cannula Oxygen Flow Rate (L/min) 1 1 1 08/31/24 13:50 08/31/24 14:00 08/31/24 14:15 Temperature Temperature Source Pulse Rate 66 67 66 Pulse Strength Respiratory Rate 20 H 20 H 20 H Respiratory Effort Respiratory Depth Respiratory Pattern Blood Pressure 88/63 L 95/70 110/68 Blood Pressure Mean 71 78 82 Blood Pressure Source Monitor Monitor Monitor Blood Pressure Position Supine Supine Semi-Fowlers Blood Pressure Location Right Arm Right Arm Right Arm Pulse Ox 96 95 94 Oxygen Delivery Method Nasal Cannula Nasal Cannula Nasal Cannula Oxygen Flow Rate (L/min) 1 1 08/31/24 14:30 08/31/24 14:45 08/31/24 14:53 Temperature Temperature Source Pulse Rate 71 102 H 69 Pulse Strength Respiratory Rate 30 H 18 17 Respiratory Effort Respiratory Depth Respiratory Pattern Normal Blood Pressure 85/55 L 108/88 H Blood Pressure Mean 65 94 Blood Pressure Source Monitor Monitor Blood Pressure Position Standing Sitting Blood Pressure Location Right Arm Right Arm Pulse Ox 95 97 Oxygen Delivery Method Nasal Cannula Nasal Cannula Oxygen Flow Rate (L/min) 1 1 08/31/24 15:00 08/31/24 15:00 Temperature Temperature Source Pulse Rate 66 66 Pulse Strength Respiratory Rate 28 H Respiratory Effort Respiratory Depth Respiratory Pattern Blood Pressure 104/77 Blood Pressure Mean 86 Blood Pressure Source Monitor Blood Pressure Position Sitting Blood Pressure Location Right Arm Pulse Ox 100 Oxygen Delivery Method Nasal Cannula Oxygen Flow Rate (L/min) 1 Weight Weight: 150 lb 12.739 oz Body Mass Index (BMI) 21.1 Physical Exam Const alert, oriented x3, no apparent distress and healthy appearing General Appearance: cooperative GI normal to inspection, nondistended, normoactive bowel sounds, soft to palpation, non-tender and non-distended Percussion: normal to percussion Rectal Exam: deferred Results Lab / Micro Data 08/31/24 05:47 08/31/24 05:47 Labs: Laboratory Results - last 24 hr 08/30/24 05:38: Lactate Dehydrogenase 366 H 08/30/24 14:55: Fluid Neutrophils 39, Fluid Lymphocytes 25, Fluid Monocytes 9, Fluid Macrophages 21, Fld Mesothelial Cells 6, Fl Pathologist Comment Reviewed, Fluid Glucose 224, Fluid Total Protein 1.2, Fluid LDH 84 08/30/24 16:38: POC Glucose 90 08/30/24 16:41: POC Glucose 99 08/30/24 23:29: POC Glucose 257 H 08/31/24 05:47: WBC 6.5, RBC 2.60 L, Hgb 8.8 L, Hct 27.5 L, MCV 105.8 H, MCH 33.8 H, MCHC 32.0, RDW Std Deviation 54.6 H, RDW Coeff of Kalpana 14.0, Plt Count 174, MPV 11.6, Immature Gran % (Auto) 0.300, Neut % (Auto) 59.0, Lymph % (Auto) 28.2, [place] % (Auto) 9.6, Eos % (Auto) 1.7, Baso % (Auto) 1.2 H, Absolute Neuts (auto) 3.8, Absolute Lymphs (auto) 1.82, Nucleated RBC % 0, Atypical Lymphocytes 1+, Platelet Estimate A, Sodium 138, Potassium 5.0, Chloride 106, Carbon Dioxide 23.6, Anion Gap 8, BUN 20 H, Creatinine 1.54 H, Estim Creat Clear Calc 48.12 L, Est GFR (MDRD) Non-Af 51 L, BUN/Creatinine Ratio 12.9, Glucose 48 L, Calcium 7.9 08/31/24 06:58: POC Glucose 42 L* 08/31/24 07:20: POC Glucose 51 L 08/31/24 08:31: POC Glucose 158 H 08/31/24 11:24: POC Glucose 56 L 08/31/24 11:54: POC Glucose 54 L 08/31/24 12:48: POC Glucose 108 H 08/31/24 16:24: POC Glucose 84 Rhythm Strip Rhythm Strip: Paced Rate: 108 Ectopy: None Assessment & Plan Assessment/Plan (1) Protein-calorie malnutrition, severe: (2) Chronic pancreatitis due to chronic alcoholism: (3) Pleural effusion associated with hepatic disorder: (4) Alcohol withdrawal: QUALIFIERS: Complication of substance-induced condition: uncomplicated Qualified Code(s): F10.930 - Alcohol use, unspecified with withdrawal, uncomplicated (5) Pleural effusion: PLAN: 64-year-old male presenting with ongoing complaints of recurrent, large bilateral pleural effusions and intermittent ascites. He reports increased shortness of breath, particularly with exertion, and occasional chest pain. The ascites causes abdominal discomfort and distension. Patient acknowledges a history of heavy alcohol use contributing to his chronic pancreatitis and admits to continued occasional alcohol consumption despite previous advice against it. He reports some relief with thoracentesis and paracentesis but notes the effusions and ascites reappear quickly. He is concerned about the frequency of these episodes and their impact on his quality of life.
--- NOTE | 2024-08-31 17:54 | CON.PCM.GI_ITS ---
HPI Consult Data Date of Consult: 08/31/24 HPI Narrative Reason for Consultation: Ascites HPI Narrative: ANALILIA TALLEY, is a The patient is a 64-year-old male, with a history as outlined below, who presented initially to the emergency department on August 28 with complaints of worsening dyspnea. The patient has a documented history of chronic alcoholic pancreatitis with recurrent ascites and pleural effusions and underlying concern for cirrhosis. In addition, he has a self-reported history of COPD and chronic tobacco dependency, but stated that he does not utilize supplemental oxygen at his baseline. In addition, the patient has known heart failure with reduced ejection fraction along with valvular heart disease status post bovine aortic valve at [facility]. Surface echocardiogram from June 2024 demonstrated an ejection fraction of 35 to 40% with moderate to severe aortic stenosis. On presentation to the emergency department, the patient was initially noted to be afebrile and hemodynamically stable. Nevertheless, he was noted to be tachycardic and tachypneic, but was maintaining appropriate oxygen saturations on room air. Laboratory evaluation revealed a normal white blood cell count. Hemoglobin was noted to be 10.1 g/dL with a platelet count of 181,000. D-dimer was mildly elevated at 1.52 with an INR of 1.2. Chemistry profile was notable for a potassium of 3.1 with a creatinine of 1.1. Troponin was elevated at 67. AST and ALT were within normal limits. Chest x-ray demonstrated evidence of bilateral pleural effusions. The patient was initially admitted to the hospital and continued on diuretics, with tentative plans to perform thoracentesis. On review of the patient's medical record, the patient did receive p.o. Lasix on August 29 and . In addition, he received low-dose metoprolol and was also maintained on Entresto and Aldactone. In addition, the patient yesterday was given 2 one-time doses of 40 mg of IV Lasix. He also underwent an ultrasound- guided thoracentesis on the afternoon of August 30 with 1.46 L of fluid removed from the right hemithorax. As a consequence of all of the aforementioned, the patient became increasingly hypotensive on the floor and was subsequently transferred to the medical intensive care unit where he was initiated on low- dose vasopressor support. * Previous Imaging ):?Chest X-ray or CT chest showing large bilateral pleural effusions. Abdominal CT or ultrasound showing ascites and features of chronic pancreatitis * Previous Labs?Pleural fluid analysis was not sent for amylase for protein levels, which would indicate an exudative effusion and suspicion of pancreaticopleural fistula (PPF). Serum amylase and lipase were also not drawn. [facility] Medical History Malnutrition Pancytopenia Medically noncompliant Thrombocytopenia Chronic pancreatitis Macrocytosis associated with alcohol Ascites due to alcoholic cirrhosis Chronic diarrhea Chronic alcohol abuse Abdominal ascites MALIK (acute kidney injury) Seizures Alcoholic hepatitis Chronic pancreatitis Gastric wall thickening Alcohol dependence Anxiety Diabetes Pancreatitis Myocardial infarct Pacemaker AAA (abdominal aortic aneurysm) Admitted to alcohol detoxification center Alcohol abuse Hx of hypercholesterolemia History of diabetes mellitus Alcohol dependence Substance abuse Smoker Alcoholism Right bundle branch block (RBBB) Non-sustained ventricular tachycardia Thoracic aortic aneurysm SVT (supraventricular tachycardia) Ascending aortic dissection (~2005) Pure hypercholesterolemia Adrenal nodule Hiatal hernia Left carotid bruit Cardiac pacemaker in situ (~06/2016) Essential hypertension Pacemaker Sick sinus syndrome Tobacco use HTN (hypertension) Diabetes mellitus, type II Home Medications ?Medication ?Instructions ?Recorded ?Last Taken ?Type atorvastatin 10 mg tablet 10 mg PO DAILY CHOLESTEROL 0 10/17/20 07/31/24 History dapagliflozin propanediol 10 mg 10 mg PO DAILY DIABETE S 09/30/21 07/31/24 History tablet (Farxiga) multivitamin 1 tab PO DAILY SUPPLEMENT 07/31/24 History gabapentin 300 mg capsule 300 mg PO DAILY NEUROPATHY 1 07/31/24 History metformin 500 mg tablet,extended 500 mg PO DAILY DIABE COLLETTE 11/15/22 07/31/24 History release 24 hr folic acid 1 mg tablet 1 mg PO DAILY@0800 supplemen t #0 05/20/23 07/31/24 Rx tabs thiamine HCl (vitamin B1) 100 mg 100 mg PO DAILYCM vit padilla #0 tabs 05/20/23 07/31/24 Rx tablet (Vitamin B-1) pantoprazole 40 mg tablet,delayed 40 mg PO BID reflux #60 tabs 06/27/23 07/31/24 Rx release ferrous sulfate 325 mg (65 mg 325 mg PO DAILY suppleme nt 06/30/24 07/31/24 History iron) tablet (FeroSul) metoprolol succinate 25 mg 12.5 mg (1/2 x 25 mg) PO DA RASHEED 07/06/24 07/31/24 Rx tablet,extended release 24 hr blood pressure 30 days # 15 tabs spironolactone 25 mg tablet 25 mg PO DAILY diuretic 30 days 07/06/24 07/31/24 Rx #30 tabs L.acidophil,salivari-Bifido 1 cap PO BID Probiotic 07/31/24 History bifidum-Strep thermoph 175 mg capsule furosemide 20 mg tablet 40 mg (2 x 20 mg) PO DAILY 3 0 days 08/03/24 Unknown Rx #60 tabs sacubitril 24 mg-valsartan 26 mg 1 tab PO BID #60 tabs 08/03/24 Unknown Rx tablet (Entresto) kcbpsp-iqzzxezt-dgluita 1 cap PO BIDCM 08/29/24 Unkn own History 24,000-76,000-120,000 unit capsule,delayed rel (Creon) Allergy/AdvReac Type Severity Reaction Status Date / Time No Known Allergies Allergy Verified 08/01/24 22:20 Family History Father CAD (coronary artery disease) Mother Dementia Surgical History History of aortic aneurysm repair (~2016) H/O cardiac catheterization History of cataract surgery History of hernia repair History of aortic valve replacement with bioprosthetic valve (~2016) H/O aortic valve replacement Social History household members: family housing: house Smoking Status: Light Smoker (<10/day) alcohol intake: current alcohol intake frequency: 0-2 drinks per day details: Reports currently ~ 2 tall boys daily. substance use type: former substance user caffeine: Yes Type: coffee Number of servings: 3 ROS Constitutional Constitutional: Denies fatigue, fever(s), poor appetite, weight gain or weight loss Gastrointestinal Gastrointestinal: Denies belching, bloating, change in bowel habits, change in stool character, chewing difficulty, coffee ground emesis, constipation, cramping, diarrhea, dyspepsia, dysphagia, early satiety, excessive flatus, fecal incontinence, heartburn, hematemesis, hematochezia, hemorrhoids, loose stools, melena, nausea, odynophagia, rectal bleeding, tenesmus, vomiting or weight changes Physical Exam Const alert, oriented x3, no apparent distress and average body habitus Constitutional Narrative: Patient appears chronically ill and older than his stated age. General Appearance: cooperative HEENT normocephalic, head/scalp atraumatic and hearing grossly normal bilaterally Eyes PERRL, EOMs intact bilaterally and conjunctivae normal Neck no lymphadenopathy, supple and no JVD Resp normal respiratory effort, no retractions, no use of accessory muscles and clear to auscultation bilaterally Cardio regular rate and regular rhythm GI GI Narrative: Patient's abdomen is distended with positive fluid wave and tender to palpation diffusely with bruising in abdomen likely from insulin injections. There is no rebound or guarding. Extremity normal to inspection, full ROM and no clubbing, cyanosis or edema Skin Skin Narrative: Patient has bruising over abdomen likely from recent insulin injections. Neuro oriented x3, CN's II-XII intact bilaterally, moves all extremities and no focal motor deficits Sensorium / Orientation: awake, alert, oriented to person, oriented to place and oriented to time Speech: speech normal Psych affect normal Lab / Micro Data 08/31/24 05:47 08/31/24 05:47 Labs: Laboratory Results - last 24 hr 08/30/24 05:38: Lactate Dehydrogenase 366 H 08/30/24 14:55: Fluid Neutrophils 39, Fluid Lymphocytes 25, Fluid Monocytes 9, Fluid Macrophages 21, Fld Mesothelial Cells 6, Fl Pathologist Comment Reviewed, Fluid Glucose 224, Fluid Total Protein 1.2, Fluid LDH 84 08/30/24 16:38: POC Glucose 90 08/30/24 16:41: POC Glucose 99 08/30/24 23:29: POC Glucose 257 H 08/31/24 05:47: WBC 6.5, RBC 2.60 L, Hgb 8.8 L, Hct 27.5 L, MCV 105.8 H, MCH 33.8 H, MCHC 32.0, RDW Std Deviation 54.6 H, RDW Coeff of Kalpana 14.0, Plt Count 174, MPV 11.6, Immature Gran % (Auto) 0.300, Neut % (Auto) 59.0, Lymph % (Auto) 28.2, [place] % (Auto) 9.6, Eos % (Auto) 1.7, Baso % (Auto) 1.2 H, Absolute Neuts (auto) 3.8, Absolute Lymphs (auto) 1.82, Nucleated RBC % 0, Atypical Lymphocytes 1+, Platelet Estimate A, Sodium 138, Potassium 5.0, Chloride 106, Carbon Dioxide 23.6, Anion Gap 8, BUN 20 H, Creatinine 1.54 H, Estim Creat Clear Calc 48.12 L, Est GFR (MDRD) Non-Af 51 L, BUN/Creatinine Ratio 12.9, Glucose 48 L, Calcium 7.9 08/31/24 06:58: POC Glucose 42 L* 08/31/24 07:20: POC Glucose 51 L 08/31/24 08:31: POC Glucose 158 H 08/31/24 11:24: POC Glucose 56 L 08/31/24 11:54: POC Glucose 54 L 08/31/24 12:48: POC Glucose 108 H 08/31/24 16:24: POC Glucose 84 Rhythm Strip Rhythm Strip: Paced Rate: 108 Ectopy: None Assessment & Plan Assessment/Plan (1) Pleural effusion associated with hepatic disorder: (2) Protein-calorie malnutrition, severe: (3) Medically noncompliant: (4) Chronic pancreatitis due to chronic alcoholism: PLAN: 64-year-old male presenting with ongoing complaints of recurrent, large bilateral pleural effusions and intermittent ascites. He reports increased shortness of breath, particularly with exertion, and occasional chest pain. The ascites causes abdominal discomfort and distension. Patient acknowledges a history of heavy alcohol use contributing to his chronic pancreatitis and admits to continued occasional alcohol consumption despite previous advice against it. He reports some relief with thoracentesis and paracentesis but notes the effusions and ascites reappear quickly. He is concerned about the frequency of these episodes and their impact on his quality of life. Differential diagnosis: * Pancreaticopleural fistula * Pancreatic ascites * Recurrent pleural effusions and ascites related to chronic pancreatitis and potential liver involvement (though not explicitly stated as cirrhosis, it is a possibility with alcohol use). Plan * Diagnostic Work-up: * Confirm fistula:?Consider imaging like MRI/MRCPor ERCP to visualize the pancreatic duct and identify any leaks or fistulas. * Evaluate Ascites:?Therapeutic paracentesis to analyze ascitic fluid, checking for amylase and protein levels to assess for pancreatic ascites. * Liver biopsy * Management: * Nutritional Support:?Address potential malnutrition associated with chronic pancreatitis and pancreatic enzyme insufficiency. Consider dietary modifications (e.g., low-fat diet) and pancreatic enzyme replacement therapy if needed. * Medical Management of Fistula/Ascites if present: * Consider conservative measures including intravenous hyperalimentation, nasogastric suction (potentially), and medications like octreotide (somatostatin analog) to reduce pancreatic secretions. If present * Serial thoracentesis and/or paracentesis for symptomatic relief. * Interventional/Surgical Options: * If conservative management fails, consider endoscopic placement of a transpapillary pancreatic duct stent to promote healing of the fistula. * Surgical intervention may be necessary if conservative or endoscopic approaches are unsuccessful, or for specific complications like pancreatic pseudocysts or duct obstruction. Procedures may involve drainage or resection depending on the underlying pancreatic pathology. * Chronic alcoholic pancreatitis-I think his weight loss and diarrhea is likely associated with exocrine pancreatic insufficiency secondary to chronic pancreatitis and inability to secrete appropriate pancreatic enzymes for absorption. He should get a fecal elastase, celiac testing and stool for alpha-1 antitrypsin for protein calorie malnutrition. All 3 of these can lead to ascites with a low SAAG gradient. * (5) Chronic pancreatitis: (6) Pancytopenia: (7) Abdominal ascites: (8) Malnutrition: Charges/Coding Visit Charges Inpatient E&M: 10810 Init Hosp L3
[2024-09-01] VITALS (30 sets, daily range): BP systolic 92–141; BP diastolic 68–105; PULSE 60–129; RESP 16–28; TEMP 36.4–36.8; O2SAT 93–100; BMI 21.5
--- NOTE | 2024-09-01 | FLU_PTH ---
PATIENT: ANALILIA TLALEY LOC: [facility] U#:[id number] AGE/SX: 64/M ROOM: [facility] RE08/29/[address]: Dr. Lucas Frausto MD : 1960 BED: 1 DIS: 09/04/2024 SPEC #: [id number] RECD: 09/01/24 10:01 STATUS: ROMARIO REQ #: [id number] GENOVEVA: 09/01/24 00:[address]: Lucas Frausto DEPT: CYTOLOGY RECD BY: Yoko Vazquez ENTERED: 09/01/24 10:33 SP TYPE: Fluid OTHR DR: MD Dr. Alcides Vallejo MD Dr. Bruce Arthur, MD Dr. Derek Brown, MD Dr. Aldo Thurston Dr., MD Dr. Gautam Baskaran, MD Dr. Yordanos Habtegebriel, MD Dr. Hemant Dand, MD Dr. Jose Ochoa, MD Dr. Justin Wong, MD Dr. Kimber Foust, MD Dr. Lamia Aljundi, MD Dr. Marisa Magana, MD Dr. Pritam Ghosh, MD Dr. Pavan Irukulla, MD Dr. Paul Nielsen, MD Dr. Saad Farooqi, MD Dr. Sukhdeep Dhesi, MD Dr. Vladimir Esteves Dr., MD Dr. Timothy Fernstrom, DO MD Dr. Toni Whitt MD Kristen Wenger, [facility], DO Tissues: PARACENTESIS FLUID Procedures: Special Stain Group II Surgery Specimen Level IV Cytospin Fluid HEADER OPERATION: Ultrasound guided paracentesis PRE-OP DIAGNOSIS: Ascites TISSUE SUBMITTED: A- Paracentesis fluid for cytology DIAGNOSIS CYTOLOGY A. Fluid, paracentesis (cytospin, cellblock): - No malignant cells identified. - Acute inflammation, reactive mesothelial cells. CYTOLOGY STUDY Slides are reviewed. CYTOLOGY GROSS A. Received is 75 ml of light-josé miguel cloudy fluid labeled with the patient's name and and designated per the requisition as Paracentesis fluid. Submitted for cytology and cell block preparation. 09/01/2024 CPT: 26434,00541
--- NOTE | 2024-09-01 06:38 | PN.CC_ITS ---
Assessment & Plan Assessment/Plan (1) Pleural effusion: PLAN: Plan RECOMMENDATIONS: 1. Cautious resumption of diuretics when feasible. 2. Proceed with CT-guided liver biopsy and paracentesis. Orders have been placed accordingly. 3. Depending on the volume removed during paracentesis, the patient may require albumin. 4. Avoid nephrotoxic medications. 5. Continue Creon and Protonix. 6. Continue scheduled bronchodilators. IMPRESSIONS: 1. Hypovolemic shock Most likely secondary to Entresto administration coupled with judicious diuretic use, leading to intravascular volume depletion and third space loss into the extravascular space in the setting of cirrhosis. With supportive care, including the cessation of diuretics and holding of Entresto, the patient's hemodynamic status has improved. He has been weaned from vasopressor support. 2. Hypoxemia Most likely related to underlying pleural effusions, which are likely the consequence of decompensated heart failure and cirrhosis with recurrent ascites. At this time, we will proceed with diagnostic and therapeutic paracentesis. Continue to wean supplemental oxygen as tolerated. Given the patient's underlying suspected COPD, will continue scheduled bronchodilators. 3. Acute kidney injury Most likely prerenal in etiology in the setting of #1. Unfortunately, the patient will be unable to tolerate significant volume resuscitation, given his underlying CHF and cirrhosis. Continue to monitor urine output. No current indication for renal replacement therapy. 4. History of chronic alcoholic pancreatitis with recurrent ascites and pleural effusions/questionable COPD/tobacco dependency/CHF/valvular heart disease Complicates care, management, recovery and prognosis. Continue supportive measures as noted above. Continue scheduled bronchodilators. Will proceed with CT-guided liver biopsy per gastroenterology recommendations. This note was generated with [employer] dictation software. It may contain incorrect words, spelling, and punctuation that were not noted in checking the note before signing. Subjective Subjective The patient was seen and examined at the bedside this morning. Events from the last 24 hours have been reviewed. The patient is currently afebrile, hemodynamically stable and maintaining appropriate oxygen saturations on 2 L/min via nasal cannula. The patient was able to be weaned off of Levophed completely overnight. The patient seems frustrated this morning and is reporting the presence of shortness of breath. The patient has an elevated potassium at 5.3 with a creatinine of 1.37. The patient was seen in consultation yesterday by gastroenterology. Objective Data Objective Data The patient's most recent lab work, culture data and imaging studies have all been personally reviewed. Surface echocardiogram from June 2024 demonstrated an ejection fraction of 35 to 40%. Vital Signs: Vital Signs Temp Pulse Resp BP Pulse Ox O2 Del Method O2 Flow Rate 98.1 F 87 18 130/101 H 95 Nasal Cannula 2 08/31/24 16:00 09/01/24 05:25 09/01/24 05:25 09/01/24 05:25 09/01/24 05:25 09/01/24 05:25 09/01/24 05:25 FiO2 31 08/30/24 10:09 Oxygen Flow Rate (L/min) 2 Oxygen Delivery Method Nasal Cannula Weight: 153 lb 14.122 oz Body Mass Index (BMI) 21.5 Intake & Output: Intake and Output for Last 24 Hours 08/30/24 08/31/24 09/01/24 23:59 23:59 23:59 Intake Total 1700 / 1900 2020.30 / 2020.30 102.27 / 102.27 Output Total 2920 / 2920 478 / 478 Balance -1220 / -1020 1542.30 / 1542.30 102.27 / 102.27 Lab / Micro Data Attestation: I reviewed the patient's lab results. 08/31/24 05:47 09/01/24 05:55 Labs: Laboratory Results - last 24 hr 08/30/24 14:55: Fl Pathologist Comment Reviewed 08/30/24 16:38: POC Glucose 90 08/30/24 16:41: POC Glucose 99 08/31/24 05:47: Atypical Lymphocytes 1+, Platelet Estimate A, Sodium 138, Potassium 5.0, Chloride 106, Carbon Dioxide 23.6, Anion Gap 8, BUN 20 H, C reatinine 1.54 H, Estim Creat Clear Calc 48.12 L, Est GFR (MDRD) Non-Af 51 L, BUN/Creatinine Ratio 12.9, Glucose 48 L, Calcium 7.9 08/31/24 06:58: POC Glucose 42 L* 08/31/24 07:20: POC Glucose 51 L 08/31/24 08:31: POC Glucose 158 H 08/31/24 11:24: POC Glucose 56 L 08/31/24 11:54: POC Glucose 54 L 08/31/24 12:48: POC Glucose 108 H 08/31/24 16:24: POC Glucose 84 08/31/24 22:56: POC Glucose 185 H 09/01/24 05:55: WBC Cancelled, Corrected WBC Cancelled, RBC Cancelled, Hgb Cancelled, Hct Cancelled, MCV Cancelled, MCH Cancelled, MCHC Cancelled, RDW Std Deviation Cancelled, RDW Coeff of Kalpana Cancelled, Plt Count Cancelled, MPV Cancelled, Immature Gran % (Auto) Cancelled, Neut % (Auto) Cancelled, Lymph % (Auto) Cancelled, [place] % (Auto) Cancelled, Eos % (Auto) Cancelled, Baso % (Auto) Cancelled, Absolute Neuts (auto) Cancelled, Absolute Lymphs (auto) Cancelled, Total Counted Cancelled, Neutrophils % (Manual) Cancelled, Band Neutrophils % Cancelled, Lymphocytes % (Manual) Cancelled, Monocytes % (Manual) Cancelled, Eosinophils % (Manual) Cancelled, Basophils % (Manual) Cancelled, Metamyelocytes % Cancelled, Myelocytes % Cancelled, Promyelocytes % Cancelled, Blast Cells % Cancelled, Plasma Cell % (Manual) Cancelled, Other Cells % Cancelled, Nucleated RBC % Cancelled, Nucleated RBCs/100 WBC Cancelled, Differential Comment Cancelled, Diff Path Review Cancelled, Hypersegmented Neuts Cancelled, Atypical Lymphocytes Cancelled, Reactive Lymphocytes Cancelled, Smudge Cells Cancelled, Toxic Granulation Cancelled, Toxic Vacuolation Cancelled, Dohle Bodies Cancelled, Huyen Rods Cancelled, Platelet Estimate Cancelled, Plt Morphology Comment Cancelled, RBC Morphology Cancelled 09/01/24 05:55: RBC Morphology Cancelled, Polychromasia Cancelled, Hypochromasia Cancelled, Basophilic Stippling Cancelled, Anisocytosis Cancelled, Microcytosis Cancelled, Macrocytosis Cancelled, Spherocytes Cancelled, Sickle Cells Cancelled, Target Cells Cancelled, Tear Drop Cells Cancelled, Ovalocytes Cancelled, Stomatocytes Cancelled, Whiteside-Van Lear Bodies Cancelled, Kristofer Cells Cancelled, Bite Cells Cancelled, Crenated Cell Cancelled, Acanthocytes (Spur) Cancelled, Rouleaux Cancelled, Schistocytes Cancelled Rhythm Strip Rhythm Strip: Paced Rate: 108 Ectopy: None Physical Exam Const alert, oriented x3 and no apparent distress General Appearance: cooperative and ill appearing Positive for chronically HEENT normocephalic and head/scalp atraumatic Eyes PERRL, EOMs intact bilaterally and conjunctivae normal Neck supple General: trachea midline Chest inspection of chest normal Resp normal respiratory effort Auscultation: diminished lung sounds Cardio regular rate and regular rhythm Heart Sounds: murmur GI soft to palpation and non-tender Inspection: abdominal distention Palpation: ascites Extremity General Extremity: edema; Negative for clubbing Skin no rashes or lesions noted Neuro CN's II-XII intact bilaterally, moves all extremities and no focal motor deficits Psych cooperative and affect normal Charges/Coding Visit Charges Inpatient E&M: 56217 Subs Hosp L3
[2024-09-01 07:13] LABS: Anion Gap 9 (5-15); BUN 20 mg/dL (4-19); BUN/Creat Ratio 14.9 RATIO (10-20); Calcium,Total 7.5 mg/dL (7.6-11.0); Carbon Dioxide 17.0 mmol/L (21.0-32.0); Chloride 109 mmol/L (98-108); Estimated Creatinine Clearance 55.19 ml/min (50-250); Glucose 217 mg/dL (70-99); Potassium 5.3 mmol/L (3.3-5.1)
--- NOTE | 2024-09-01 07:22 | US_ITS ---
PROCEDURE: ABDOMEN LIMITED 09/01/2024 REASON FOR EXAM: ASCITES TECHNIQUE: ABDOMEN LIMITED COMPARISON: CT 08/01/2024 FINDINGS: Coarse liver echotexture consistent with medical liver disease. Small right- sided pleural effusion. Moderate left-sided pleural effusion. No visible ascites. US/Abdomen Limited IMPRESSION: No evidence for ascites. Reading Location: [place] [id number]
--- NOTE | 2024-09-01 08:12 | PCM.PN.HOSP ---
Subjective Subjective Doing well today, no issues overnight. Plan for paracentesis today unfortunately cannot do a liver biopsy Objective Data Objective Data Vital Signs: Vital Signs Temp Pulse Resp BP Pulse Ox O2 Del Method O2 Flow Rate 98.1 F 88 24 H 125/84 H 96 Nasal Cannula 3 08/31/24 16:00 09/01/24 06:59 09/01/24 06:59 09/01/24 06:45 09/01/24 06:59 09/01/24 06:59 09/01/24 06:59 FiO2 31 08/30/24 10:09 Oxygen Flow Rate (L/min) 3 Oxygen Delivery Method Nasal Cannula Weight: 153 lb 14.122 oz Body Mass Index (BMI) 21.5 Intake & Output: Intake and Output for Last 24 Hours 08/31/24 09/01/24 09/02/24 03:59 03:59 03:59 Intake Total 2200 / 2200 1422.57 / 1422.57 Output Total 3220 / 3220 178 / 178 Balance -1020 / -1020 1244.57 / 1244.57 Lab / Micro Data 08/31/24 05:47 09/01/24 05:55 Labs: Laboratory Results - last 24 hr 08/30/24 14:55: Fl Pathologist Comment Reviewed 08/30/24 16:38: POC Glucose 90 08/30/24 16:41: POC Glucose 99 08/31/24 05:47: Atypical Lymphocytes 1+, Platelet Estimate A 08/31/24 08:31: POC Glucose 158 H 08/31/24 11:24: POC Glucose 56 L 08/31/24 11:54: POC Glucose 54 L 08/31/24 12:48: POC Glucose 108 H 08/31/24 16:24: POC Glucose 84 08/31/24 22:56: POC Glucose 185 H 09/01/24 05:55: WBC Cancelled, Corrected WBC Cancelled, RBC Cancelled, Hgb Cancelled, Hct Cancelled, MCV Cancelled, MCH Cancelled, MCHC Cancelled, RDW Std Deviation Cancelled, RDW Coeff of Kalpana Cancelled, Plt Count Cancelled, MPV Cancelled, Immature Gran % (Auto) Cancelled, Neut % (Auto) Cancelled, Lymph % (Auto) Cancelled, Campbell % (Auto) Cancelled, Eos % (Auto) Cancelled, Baso % (Auto) Cancelled, Absolute Neuts (auto) Cancelled, Absolute Lymphs (auto) Cancelled, Total Counted Cancelled, Neutrophils % (Manual) Cancelled, Band Neutrophils % Cancelled, Lymphocytes % (Manual) Cancelled, Monocytes % (Manual) Cancelled, Eosinophils % (Manual) Cancelled, Basophils % (Manual) Cancelled, Metamyelocytes % Cancelled, Myelocytes % Cancelled, Promyelocytes % Cancelled, Blast Cells % Cancelled, Plasma Cell % (Manual) Cancelled, Other Cells % Cancelled, Nucleated RBC % Cancelled, Nucleated RBCs/100 WBC Cancelled, Differential Comment Cancelled, Diff Path Review Cancelled, Hypersegmented Neuts Cancelled, Atypical Lymphocytes Cancelled, Reactive Lymphocytes Cancelled, Smudge Cells Cancelled, Toxic Granulation Cancelled, Toxic Vacuolation Cancelled, Dohle Bodies Cancelled, Huyen Rods Cancelled, Platelet Estimate Cancelled, Plt Morphology Comment Cancelled, RBC Morphology Cancelled 09/01/24 05:55: RBC Morphology Cancelled, Polychromasia Cancelled, Hypochromasia Cancelled, Basophilic Stippling Cancelled, Anisocytosis Cancelled, Microcytosis Cancelled, Macrocytosis Cancelled, Spherocytes Cancelled, Sickle Cells Cancelled, Target Cells Cancelled, Tear Drop Cells Cancelled, Ovalocytes Cancelled, Stomatocytes Cancelled, Whiteside-Kanorado Bodies Cancelled, Holt Cells Cancelled, Bite Cells Cancelled, Crenated Cell Cancelled, Acanthocytes (Spur) Cancelled, Rouleaux Cancelled, Schistocytes Cancelled, Sodium 135, Potassium 5.3 H, Chloride 109 H, Carbon Dioxide 17.0 L, Anion Gap 9, BUN 20 H, Creatinine 1.37 H, Estim Creat Clear Calc 55.19, Est GFR (MDRD) Non-Af 58 L, BUN/Creatinine Ratio 14.9, Glucose 217 H, Calcium 7.5 L Rhythm Strip Rhythm Strip: Paced Rate: 108 Ectopy: None Physical Exam Narrative General: Alert, Oriented x3, Cooperative, No apparent distress HEENT: Atraumatic, PERRLA, EOMI, Normocephalic Oral: Moist Mucosa Neck: Supple, No JVD Lungs: Diminished bilateral bases, Normal air movement, No rhonchi, No wheeze, No rales Cardiovascular: Regular rate, Regular Rhythm, Normal S1, Normal S2, No murmurs Abdomen: Soft, Non Tender, Non-Distended, No Hepato-splenomegaly Extremities: Edema, Capillary Refill Less than 3 Seconds Skin: No rashes, No breakdown Musculoskeletal: No Tenderness to Palpation of Joints or Extremities Neurological: No focal neurological deficits, Motor Exam 5/5 strength throughout, Sensory exam intact to light touch and pain Psych/Mental Status: Normal affect, appropriate Assessment & Plan Assessment/Plan (1) Medically noncompliant: (2) History of diabetes mellitus: (3) Pleural effusion: (4) Pleural effusion associated with hepatic disorder: PLAN: Plan 1. 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 Will continue to hold his Entresto and his other diuretics, plan for paracentesis today depending on volume may need albumin ? Off of pressors ? Appreciate rental car deliverer assistance ? He is not septic ? Thoracentesis had 1.4 L removed fluid studies indicated transudative effusion likely related to his heart failure and liver disease. ? 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 He did have a paracentesis done on his previous admission at the end of June that removed 1.7 L of fluid, he probably has cirrhosis but has not had a liver biopsy yet and unfortunately do not have radiology here today to perform a liver biopsy but will repeat paracentesis ? Given his hypotension we will hold his Entresto and Aldactone, can continue with his metoprolol ? Continue with his Farxiga both for his diabetes and his CHF 2. DM2 ? Continue with Farxiga but hold his metformin ? Continue with sliding scale insulin ? Accu-Cheks ACHS ? Will monitor make adjustments as necessary 3. GERD/chronic pancreatitis ? Stable ? Continue with PPI ? Will also continue with his Creon DVT: Lovenox Charges/Coding Visit Charges Inpatient E&M: 96378 Subs Hosp L2
[2024-09-01] MEDS: Lidocaine 2% (20 ml mdv) 20 ML Vial INFILT (09:26)
--- NOTE | 2024-09-01 09:45 | RAD_ITS ---
EXAM: Inspiratory and expiratory chest x-ray CLINICAL HISTORY: Status post thoracentesis COMPARISON: August 30, 2024 TECHNIQUE: Portable upright inspiration and expiration views were provided. FINDINGS: The heart is mildly enlarged status post median sternotomy and aortic valve replacement, CABG. Dual lead pacemaker has leads over the right atrium and right ventricular apex. Mixed interstitial and airspace opacities are seen in the perihilar and lower lungs. There continues to be compressive subsegmental atelectasis of the lung bases, [id number]. Pleural fluid volume is similar on the right and slightly decreased on the left. No pneumothorax is seen. RAD/Chest Insp/Exp 2 View IMPRESSION: No pneumothorax. Slight decrease in left pleural fluid volume. Otherwise very similar to prior. Reading Location: [id number]
--- NOTE | 2024-09-01 09:50 | OP.PCM_ITS ---
Problems Associated Problem List Diagnoses (1) Pleural effusion: Multi Select Codes Radiology Radiology US Procedures: 15322 Thoracentesis Operative Report (Standard) Operative Information Date of Procedure: 09/01/24 Pre-Operative Diagnosis: Pleural effusion Post-Operative Diagnosis: Pleural effusion Surgery/Procedure Performed: Ultrasound-guided thoracentesis home service technician: No Type of Anesthesia: Local Procedure Start Time: 09:19 Procedure Stop Time: 09:47 Select all DRAINS/GRAFTS/IMPLANTS that apply: None Estimated Blood Loss: 0 Specimen collected: Yes Description of specimen(s) removed: 100ml of cloudy josé miguel fluid Description of surgery: PROCEDURE: Ultrasound Guided Thoracentesis, left ORDERING PROVIDER: Dr. Sheehan INDICATION: Male, 64 years old. Pleural effusion. PROVIDER: ANGELITA Muir PROCEDURE: The risks, benefits, and alternatives to the procedure were explained to the patient. The specific risks of bleeding, infection, and pneumothorax requiring chest tube insertion were discussed and accepted. Written informed consent was obtained. His prophylactic Lovenox was held this morning. The patient was placed in the sitting, upright position. Ultrasonographic evaluation of the bilateral lower pleural spaces was carried out. Bilateral p leural effusions were identified with an adequate pocket was identified in the left lower pleural space. The overlying skin was prepped with chlorhexidine and draped in sterile fashion. 2 % lidocaine was administered subcutaneously for local anesthesia. Under ultrasound guidance, a 5-Icelandic thoracentesis needle/catheter system was advanced into the left posterior lower pleural fluid collection. 760 ml of cloudy josé miguel colored fluid was drained. The catheter was removed, and a sterile dressing was applied. The patient tolerated the procedure well without any immediate complications. A chest x-ray was ordered. There was no evidence of pneumothorax. IMPRESSION: Successful ultrasound guided thoracentesis of left pleural effusion. Surgical Findings: None Complications Complications: No
[2024-09-01 10:08] LABS: Cytology, Body Fluid / CSF SEE PATHOLOGY REPORT
[2024-09-01 10:28] LABS: Body Fluid Mononuclear WBC # 0.114 10^3/uL; Body Fluid Mononuclear WBC % 73.1 %; Body Fluid Polynuclear WBC # 0.042 10^3/uL; Body Fluid Polynuclear WBC % 26.9 %; White Blood Count/Body Fluid 0.156 10^3/uL
[2024-09-01 10:37] LABS: Appearance/Body Fluid SL CLDY; Auto B Fluid Analyzer BKGD Ct COUNTS W/IN LIMITS (W/IN LIMITS); Color/Body Fluid PINK; Source- Body Fluid ASCITES FLUID
[2024-09-01 10:56] LABS: Red Cell Count/Body Fluid 5085 /mm3
[2024-09-01 11:13] LABS: Neutrophil (Segs) 38 %
[2024-09-01 11:18] LABS: Body Fluid QC Type(s) BF1,BF2
[2024-09-01 11:32] LABS: Hematocrit 28.6 % (40-54); Hemoglobin 9.0 g/dL (13.0-16.5); Immature Granulocytes Count 0.020 X10^3/uL (0.0-0.0); Mean Corp Hgb Conc 31.5 g/dL (32-36); Mean Corpuscular Volume 107.5 fL (80-94); Mean Platelet Vol. 11.8 fl (6.2-12.0); NRBC Flagged by Analyzer 0 % (0-5); Platelet Count 166 K/mm3 (150-450); RBC Distribution Width CV 14.0 % (11.6-14.6); RBC Distribution Width SD 54.9 fl (35.1-43.9); Red Blood Count 2.66 M/mm3 (4.6-6.2); White Blood Count 5.8 K/mm3 (4.4-11.0)
[2024-09-01 11:41] LABS: Partial Thromboplast Time 27.5 Seconds (24.1-36.2); Prothrombin Time (Protime)PT. 15.6 SECONDS (11.7-14.9)
[2024-09-01] MEDS: Glucerna Shake 120 ML LIQUID PO ×3 (11:49→19:12)
[2024-09-01] MEDS: Creon 24,000 unit DR Capsule 1 CAP PO ×2 (11:51→18:16)
[2024-09-01] MEDS: Metoprolol(XL)Succ 25 MG Tablet 12.5 MG PO (11:53)
[2024-09-01] MEDS: Lactobacillis Acidophilus 1 CAP PO ×2 (11:55→21:17)
[2024-09-01] MEDS: Thiamine Hydrochloride 100 MG Tablet PO (11:55)
[2024-09-01 11:59] LABS: Albumin, Serum 3.0 g/dL (3.4-4.8)
--- NOTE | 2024-09-01 18:05 | PN_ITS ---
Progress Note Patient was able to get 750 mL of fluid removed from his lung. There was no fluid removed from his abdomen and there was no availability to do a liver biopsy by interventional radiology today. Physical Exam Const alert, oriented x3, no apparent distress and average body habitus Constitutional Narrative: Patient appears chronically ill and older than his stated age. General Appearance: cooperative HEENT normocephalic, head/scalp atraumatic and hearing grossly normal bilaterally Eyes PERRL, EOMs intact bilaterally and conjunctivae normal Neck no lymphadenopathy, supple and no JVD Resp normal respiratory effort, no retractions, no use of accessory muscles and clear to auscultation bilaterally Cardio regular rate and regular rhythm GI GI Narrative: Patient's abdomen is distended with positive fluid wave and tender to palpation diffusely with bruising in abdomen likely from insulin injections. There is no rebound or guarding. Extremity normal to inspection, full ROM and no clubbing, cyanosis or edema Skin Skin Narrative: Patient has bruising over abdomen likely from recent insulin injections. Neuro oriented x3, CN's II-XII intact bilaterally, moves all extremities and no focal motor deficits Sensorium / Orientation: awake, alert, oriented to person, oriented to place and oriented to time Speech: speech normal Psych affect normal Assessment & Plan Assessment/Plan (1) Pleural effusion associated with hepatic disorder: (2) Protein-calorie malnutrition, severe: (3) Medically noncompliant: (4) Chronic pancreatitis due to chronic alcoholism: PLAN: 64-year-old male presenting with ongoing complaints of recurrent, large bilateral pleural effusions and intermittent ascites. He reports increased shortness of breath, particularly with exertion, and occasional chest pain. The ascites causes abdominal discomfort and distension. Patient acknowledges a history of heavy alcohol use contributing to his chronic pancreatitis and admits to continued occasional alcohol consumption despite previous advice against it. He reports some relief with thoracentesis and paracentesis but notes the effusions and ascites reappear quickly. He is concerned about the frequency of these episodes and their impact on his quality of life. Differential diagnosis: * Pancreaticopleural fistula * Pancreatic ascites * Recurrent pleural effusions and ascites related to chronic pancreatitis and potential liver involvement (though not explicitly stated as cirrhosis, it is a possibility with alcohol use). Plan * Diagnostic Work-up: * Confirm fistula:?Consider imaging like MRI/MRCPor ERCP to visualize the pancreatic duct and identify any leaks or fistulas. * Evaluate Ascites:?Therapeutic paracentesis to analyze ascitic fluid, checking for amylase and protein levels to assess for pancreatic ascites. * Liver biopsy * Management: * Nutritional Support:?Address potential malnutrition associated with chronic pancreatitis and pancreatic enzyme insufficiency. Consider dietary modifications (e.g., low-fat diet) and pancreatic enzyme replacement therapy if needed. * Medical Management of Fistula/Ascites if present: * Consider conservative measures including intravenous hyperalimentation, nasogastric suction (potentially), and medications like octreotide (somatostatin analog) to reduce pancreatic secretions. If present * Serial thoracentesis and/or paracentesis for symptomatic relief. * Interventional/Surgical Options: * If conservative management fails, consider endoscopic placement of a transpapillary pancreatic duct stent to promote healing of the fistula. * Surgical intervention may be necessary if conservative or endoscopic approaches are unsuccessful, or for specific complications like pancreatic pseudocysts or duct obstruction. Procedures may involve drainage or resection depending on the underlying pancreatic pathology. * Chronic alcoholic pancreatitis-I think his weight loss and diarrhea is likely associated with exocrine pancreatic insufficiency secondary to chronic pancreatitis and inability to secrete appropriate pancreatic enzymes for absorption. He should get a fecal elastase, celiac testing and stool for alpha-1 antitrypsin for protein calorie malnutrition. All 3 of these can lead to ascites with a low SAAG gradient. 09/01/2024- 62-year-old individual presenting with a history of alcoholic chronic pancreatitis, recurrent bilateral transudative pleural effusions without ascites , congestive heart failure, and possible cirrhosis * Recurrent bilateral transudative pleural effusions, indicating fluid leakage from the cardiovascular or abdominal systems. * No ascites, making direct passage of fluid from the abdominal cavity to the pleural space through a diaphragmatic defect less likely, although cases of hepatic hydrothorax without ascites have been reported. * History of alcoholic chronic pancreatitis, a possible factor contributing to pleural effusion through a pancreaticopleural fistula (awaiting amylase from thoracentesis fluid) * History of congestive heart failure, a common cause of transudative effusions. * Possible cirrhosis, another potential source of transudative effusions due to impaired liver function and fluid retention. This patient presents with a complex interplay of chronic conditions, making the primary cause of the recurrent bilateral transudative pleural effusions challenging to definitively identify. Based on the subjective and objective findings, several contributing factors must be considered: * Congestive heart failure:?This is a very common cause of transudative effusions, often bilateral, and should be considered as a likely contributor. * Alcoholic chronic pancreatitis:?While typically presenting with unilateral effusions, chronic pancreatitis can lead to pancreaticopleural fistulas, causing fluid to leak into the pleural cavity, which can be bilateral in rare cases. * Possible cirrhosis:?If confirmed, cirrhosis would be a major contributor to transudative effusions, even in the absence of ascites. Plan * Optimize management of congestive heart failure: * Review and adjust diuretic therapy, titrating to achieve optimal fluid balance and potentially reduce the burden on the heart. * Consider further cardiac evaluations to assess heart function and tailor treatment strategies, potentially including additional medications or interventions to improve cardiac output. * Evaluate for pancreaticopleural fistula: * Investigate the possibility of a pancreaticopleural fistula with imaging studies and pleural fluid analysis to rule out this potential cause. * If a fistula is detected, consider options like endoscopic stenting or surgical intervention based on the severity and feasibility. * Patient needs an MRCP * Evaluate for cirrhosis: * Perform further investigations to confirm or rule out cirrhosis, such as liver function tests, liver imaging and potentially a liver biopsy. * If cirrhosis is confirmed, manage the condition with sodium restriction, diuretics, and potentially other therapies, depending on the severity. * Manage recurrent pleural effusions: * Therapeutic thoracentesis:?Regularly drain the pleural effusions to relieve shortness of breath and improve respiratory function. * Consider indwelling pleural catheter:?If repeated thoracenteses are required frequently, discuss the possibility of inserting an IPC for long- term drainage and symptom control. * Explore other options based on the confirmed etiology:?If hepatic hydrothorax or a pancreaticopleural fistula is confirmed, discuss options like transjugular intrahepatic portosystemic shunt. I had a long talk with this possible etiology with the patient at the bedside. This will depend on the liver biopsy and MRCP.? (5) Chronic pancreatitis: (6) Pancytopenia: (7) Abdominal ascites: (8) Malnutrition: Visit Charges Inpatient E&M: 23187 Subs Hosp L3
[2024-09-01] MEDS: MELATONIN 3 MG TABLET PO (21:17)
--- NOTE | 2024-09-01 23:10 | PCM.HOSP.N ---
Hospitalist Note Request by ICU nursing to transition the patient to PCU status. Patient has been off of pressors since 330 this morning. Patient has remained normotensive and is currently on room air. Patient will be changed over to PCU status.
[2024-09-02] VITALS (19 sets, daily range): BP systolic 101–125; BP diastolic 73–98; PULSE 63–97; RESP 18–27; TEMP 36.5–37.1; O2SAT 90–100; BMI 21.7
[2024-09-02 06:26] LABS: Hematocrit 26.6 % (40-54); Hemoglobin 8.4 g/dL (13.0-16.5); Immature Granulocytes Count 0.020 X10^3/uL (0.0-0.0); Mean Corp Hgb Conc 31.6 g/dL (32-36); Mean Corpuscular Volume 106.0 fL (80-94); Mean Platelet Vol. 11.2 fl (6.2-12.0); NRBC Flagged by Analyzer 0 % (0-5); POSITIVE MORPHOLOGY YES; Platelet Count 168 K/mm3 (150-450); RBC Distribution Width CV 14.0 % (11.6-14.6); RBC Distribution Width SD 54.6 fl (35.1-43.9); Red Blood Count 2.51 M/mm3 (4.6-6.2); White Blood Count 4.9 K/mm3 (4.4-11.0)
[2024-09-02 06:35] LABS: Differential Indicated SCAN CRITERIA MET
[2024-09-02 06:44] LABS: AST(SGOT) 23 U/L (<=37); Alanine Aminotransfer ALT/SGPT 13 U/L (<=46); Albumin, Serum 2.7 g/dL (3.4-4.8); Alkaline Phosphatase 141 U/L (40-129); Anion Gap 8 (5-15); BUN 22 mg/dL (4-19); BUN/Creat Ratio 13.5 RATIO (10-20); Calcium,Total 8.2 mg/dL (7.6-11.0); Carbon Dioxide 20.7 mmol/L (21.0-32.0); Chloride 106 mmol/L (98-108); Estimated Creatinine Clearance 46.35 ml/min (50-250); Globulin 2.8 g/dL (2.2-4.2); Glucose 333 mg/dL (70-99); Potassium 5.8 mmol/L (3.3-5.1)
[2024-09-02 07:11] LABS: Differential Comment SCANNED
--- NOTE | 2024-09-02 08:16 | PN.HOSP_ITS ---
Subjective Subjective Resting comfortably, no issues overnight. Only on 2 L nasal cannula Objective Data Objective Data Vital Signs: Vital Signs Temp Pulse Resp BP Pulse Ox O2 Del Method O2 Flow Rate 98.0 F 87 20 H 125/98 H 99 Nasal Cannula 2 09/01/24 21:00 09/02/24 07:12 09/02/24 07:12 09/02/24 04:28 09/02/24 07:12 09/02/24 07:12 09/02/24 07:12 FiO2 31 08/30/24 10:09 Oxygen Flow Rate (L/min) 2 Oxygen Delivery Method Nasal Cannula Weight: 155 lb 10.342 oz Body Mass Index (BMI) 21.7 Intake & Output: Intake and Output for Last 24 Hours 09/01/24 09/02/24 09/03/24 03:59 03:59 03:59 Intake Total 1422.57 / 1422.57 1140 / 1140 Output Total 178 / 178 1062 / 1062 Balance 1244.57 / 1244.57 78 / 78 Lab / Micro Data 09/02/24 06:15 09/02/24 06:15 Labs: Laboratory Results - last 24 hr 09/01/24 10:01: Fluid Source ASCITES FLUID, Fluid Color PINK, Fluid Appearance SL CLDY, Fluid WBC 0.156, Fluid RBC 5085, Fluid Tot Cell Count 0.169, Fld Polynuclear WBCs # 0.042, Fld Polynuclear WBCs % 26.9, Fluid Mononuclear WBCs 0.114, Fld Mononuclear WBCs % 73.1, Fluid Neutrophils 38, Fluid Lymphocytes 36, Fluid Monocytes 7, Fluid Macrophages 19, Fl Pathologist Comment May follow, Fluid Total Protein 0.9, Fluid Comment 2 SEE COMMENT 09/01/24 11:00: WBC 5.8, RBC 2.66 L, Hgb 9.0 L, Hct 28.6 L, MCV 107.5 H, MCH 33.8 H, MCHC 31.5 L, RDW Std Deviation 54.9 H, RDW Coeff of Kalpana 14.0, Plt Count 166, MPV 11.8, Immature Gran % (Auto) 0.300, Neut % (Auto) 69.7, Lymph % (Auto) 18.3 L, Sabine % (Auto) 9.0, Eos % (Auto) 1.0, Baso % (Auto) 1.7 H, Absolute Neuts (auto) 4.0, Absolute Lymphs (auto) 1.05, Nucleated RBC % 0, PT 15.6 H, INR 1.2, APTT 27.5, Albumin 3.0 L 09/01/24 11:35: POC Glucose 203 H 09/01/24 16:39: POC Glucose 98 09/01/24 20:39: POC Glucose 129 H 09/02/24 06:15: WBC 4.9, RBC 2.51 L, Hgb 8.4 L, Hct 26.6 L, MCV 106.0 H, MCH 33.5 H, MCHC 31.6 L, RDW Std Deviation 54.6 H, RDW Coeff of Kalpana 14.0, Plt Count 168, MPV 11.2, Immature Gran % (Auto) 0.400, Neut % (Auto) 62.9, Lymph % (Auto) 23.0, Sabine % (Auto) 9.4, Eos % (Auto) 2.5, Baso % (Auto) 1.8 H, Absolute Neuts (auto) 3.1, Absolute Lymphs (auto) 1.12, Nucleated RBC % 0, Differential Comment SCANNED, Sodium 134, Potassium 5.8 H, Chloride 106, Carbon Dioxide 20.7 L, Anion Gap 8, BUN 22 H, Creatinine 1.65 H, Estim Creat Clear Calc 46.35 L, Est GFR (MDRD) Non-Af 47 L, BUN/Creatinine Ratio 13.5, Glucose 333 H, Calcium 8.2, Total Bilirubin 0.17, AST 23, ALT 13, Alkaline Phosphatase 141 H, Total Protein 5.5 L, Albumin 2.7 L, Globulin 2.8, Albumin/Globulin Ratio 1.0 Micro: Microbiology 09/01/24 10:01 Fluid - Pleural (Lung) Gram Stain - Final Radiography Diagnostic Testing: Radiology Impression Chest X-Ray 09/01/24 09:45 IMPRESSION: No pneumothorax. Slight decrease in left pleural fluid volume. Otherwise very similar to prior. Reading Location: [id number] Rhythm Strip Rhythm Strip: Paced Rate: 108 Ectopy: None Physical Exam Narrative General: Alert, Oriented x3, resting comfortably, cooperative, No apparent distress HEENT: Atraumatic, PERRLA, EOMI, Normocephalic Oral: Moist Mucosa Neck: Supple, No JVD Lungs: Diminished bilateral bases, Normal air movement, No rhonchi, No wheeze, No rales Cardiovascular: Regular rate, Regular Rhythm, Normal S1, Normal S2, No murmurs Abdomen: Soft, Non Tender, Non-Distended, No Hepato-splenomegaly Extremities: Edema, Capillary Refill Less than 3 Seconds Skin: No rashes, No breakdown Musculoskeletal: No Tenderness to Palpation of Joints or Extremities Neurological: No focal neurological deficits, moves all extremities Psych/Mental Status: Normal affect, appropriate Assessment & Plan Assessment/Plan (1) Medically noncompliant: (2) History of diabetes mellitus: (3) Pleural effusion: (4) Pleural effusion associated with hepatic disorder: PLAN: Plan 1. 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 Will need a liver biopsy on Wednesday ? Off of pressors ? Appreciate tool distributor assistance ? He is not septic ? Thoracentesis had 1.4 L removed fluid studies indicated transudative effusion likely related to his heart failure and liver disease. ? 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 Given his hypotension we will hold his Entresto and Aldactone, can continue with his metoprolol ? Continue with his Farxiga both for his diabetes and his CHF 2. DM2 ? Continue with Farxiga but hold his metformin ? Continue with sliding scale insulin ? Accu-Cheks ACHS ? Will monitor make adjustments as necessary 3. GERD/chronic pancreatitis ? Stable ? Continue with PPI ? Will also continue with his Creon DVT: Lovenox Charges/Coding Visit Charges Inpatient E&M: 79723 Subs Hosp L2
--- NOTE | 2024-09-02 09:24 | PCM.PN.TICU ---
Objective Data Objective Data Vital Signs: Vital Signs Last response Temperature 36.5 C L 09/02/24 08:00 Temperature Source Temporal 09/02/24 08:00 Pulse Rate 63 09/02/24 08:00 Pulse Strength Normal (2+) 09/02/24 08:45 Respiratory Rate 19 H 09/02/24 08:00 Respiratory Effort Normal, Short of Breath, Labored 09/02/24 08:47 Respiratory Depth Normal 09/02/24 08:47 Respiratory Pattern Normal 09/02/24 08:47 Blood Pressure 114/77 09/02/24 08:00 Blood Pressure Mean 89 09/02/24 08:00 Blood Pressure Source Monitor 09/02/24 08:00 Blood Pressure Position Supine 09/02/24 08:00 Blood Pressure Location Left Arm 09/02/24 08:00 Pulse Ox 96 09/02/24 08:00 Oxygen Delivery Method Nasal Cannula 09/02/24 08:47 Oxygen Flow Rate (L/min) 2 09/02/24 08:47 Fraction of Inspired Oxygen (FIO2) 31 08/30/24 10:09 I&O: I&O Last 24 Hours 09/01/24 09/01/24 09/02/24 11:59 23:59 11:59 Intake Total 462.27 / 1242.27 780 / 1242.27 Output Total 760 / 1062 2 / 1062 550 / 550 Balance -297.73 / 180.27 778 / 180.27 -550 / -550 I&O: Total Stay 08/28/24 17:45 thru 09/02/24 08:38 Intake Total 4962.57 Output Total 5210 Balance -247.43 Current Meds Ordered / Administered: Current meds ordered / Administered Generic Name Dose Route Start Last Admin Trade Name Freq PRN Reason Stop Dose Admin Acetaminophen 650 mg 08/29/24 20:02 09/01/24 21:17 Acetaminophen 325 Mg Tablet PO 650 mg Q4H PRN PRN Administration Fever, pain 1-10/10 Albuterol/Ipratropium 3 ml 08/31/24 08:30 09/02/24 07:12 Ipratropium/Albuterol Sulfate 3 Ml Ampul.Neb INHALATION 3 ml Q4HWA.RT KUNAL Administration Atorvastatin Calcium 10 mg 08/29/24 22:00 09/01/24 21:17 Atorvastatin Calcium 10 Mg Tablet PO 10 mg QHS KUNAL Administration Empagliflozin 25 mg 08/29/24 10:00 09/01/24 11:51 Empagliflozin 25 Mg Tablet PO 25 mg DAILY KUNAL Administration Enoxaparin Sodium 40 mg 08/29/24 10:00 09/01/24 11:50 Enoxaparin 40 Mg/0.4 Ml Syringe SC 40 mg DAILY KUNAL Administration Ferrous Sulfate 325 mg 08/29/24 12:00 09/01/24 15:29 Ferrous Sulfate 325 Mg Tablet PO 325 mg DAILY@1200 [facility] Administration Folic Acid 1 mg 08/29/24 08:00 09/01/24 11:52 Folic Acid 1 Mg Tablet PO 1 mg DAILY@0800 KUNAL Administration Gabapentin 300 mg 08/29/24 10:00 09/01/24 12:03 Gabapentin 300 Mg Capsule PO 300 mg DAILY KUNAL Administration Glucagon 1 mg 08/29/24 13:40 Glucagon 1 Mg/Ml Syringe IM X1 PRN Hypoglycemia Protocol Dextrose 250 mls @ 0 mls/hr 08/29/24 13:40 Dextrose 10%-Water IV .Q0M PRN HYPOGLYCEMIA Protocol As Directed Insulin Glargine 10 unit 08/30/24 22:00 09/02/24 04:25 Insulin Glargine-Yfgn 100 Unit/Ml Pen SC Not Given QHS [facility] Insulin Human Lispro 0 unit 08/29/24 16:00 09/02/24 07:39 Insulin Lispro 100 Unit/Ml Insuln.Pen SC 6 u ACHS [facility] Administration Protocol Insulin Human Lispro 5 unit 08/31/24 07:00 09/02/24 07:40 Insulin Lispro 100 Unit/Ml Insuln.Pen SC 5 u TIDAC [facility] Administration Melatonin 3 mg 08/29/24 01:24 09/01/24 21:17 Melatonin 3 Mg Tablet PO 3 mg QHS PRN PRN Administration INSOMNIA Metoprolol Succinate 12.5 mg 08/29/24 10:00 09/01/24 11:53 Metoprolol(Xl)Succ 25 Mg Tablet PO 12.5 mg DAILY [facility] Administration Protocol Midodrine 10 mg 08/31/24 12:00 09/01/24 18:16 Midodrine Hcl 5 Mg Tablet PO 10 mg TIDCM KUNAL Administration Multivitamins 1 tablet 08/29/24 08:00 09/01/24 11:52 Multivitamins,Therapeutic Tablet PO 1 tablet DAILYCM KUNAL Administration Nutritional Formula (Lactose Free) 120 ml 08/29/24 18:00 09/02/24 04:25 Glucerna Shake 120 Ml Liquid PO Not Given 4X/DAY KUNAL Ondansetron HCl 4 mg 08/29/24 14:41 09/01/24 06:30 Ondansetron 4 Mg/2 Ml Vial IV 4 mg Q8H PRN PRN Administration NAUSEA/VOMITING Pancrelipase 1 cap 08/29/24 08:00 09/01/24 18:16 Creon [address] Capsule PO 1 cap BIDCM KUNAL Administration Pantoprazole Sodium 40 mg 08/29/24 10:00 09/01/24 21:17 Pantoprazole Sodium 40 Mg Tablet PO 40 mg BID KUNAL Administration Sodium Chloride 10 - 40 ml 08/29/24 01:28 08/31/24 06:56 0.9% Saline Lock 10 Ml Syringe IV 20 ml UD PRN Administration SALINE FLUSH Thiamine HCl 100 mg 08/29/24 08:00 09/01/24 11:55 Thiamine Hydrochloride 100 Mg Tablet PO 100 mg DAILYCM KUNAL Administration Lab / Micro Data Attestation: I reviewed the patient's lab results. 09/02/24 06:15 09/02/24 06:15 Labs: Laboratory Results - last 24 hr 09/01/24 10:01: Fluid Source ASCITES FLUID, Fluid Color PINK, Fluid Appearance SL CLDY, Fluid WBC 0.156, Fluid RBC 5085, Fluid Tot Cell Count 0.169, Fld Polynuclear WBCs # 0.042, Fld Polynuclear WBCs % 26.9, Fluid Mononuclear WBCs 0.114, Fld Mononuclear WBCs % 73.1, Fluid Neutrophils 38, Fluid Lymphocytes 36, Fluid Monocytes 7, Fluid Macrophages 19, Fl Pathologist Comment May follow, Fluid Total Protein 0.9, Fluid Comment 2 SEE COMMENT 09/01/24 11:00: WBC 5.8, RBC 2.66 L, Hgb 9.0 L, Hct 28.6 L, MCV 107.5 H, MCH 33.8 H, MCHC 31.5 L, RDW Std Deviation 54.9 H, RDW Coeff of Kalpana 14.0, Plt Count 166, MPV 11.8, Immature Gran % (Auto) 0.300, Neut % (Auto) 69.7, Lymph % (Auto) 18.3 L, Navarro % (Auto) 9.0, Eos % (Auto) 1.0, Baso % (Auto) 1.7 H, Absolute Neuts (auto) 4.0, Absolute Lymphs (auto) 1.05, Nucleated RBC % 0, PT 15.6 H, INR 1.2, APTT 27.5, Albumin 3.0 L 09/01/24 11:35: POC Glucose 203 H 09/01/24 16:39: POC Glucose 98 09/01/24 20:39: POC Glucose 129 H 09/02/24 06:15: WBC 4.9, RBC 2.51 L, Hgb 8.4 L, Hct 26.6 L, MCV 106.0 H, MCH 33.5 H, MCHC 31.6 L, RDW Std Deviation 54.6 H, RDW Coeff of Kalpana 14.0, Plt Count 168, MPV 11.2, Immature Gran % (Auto) 0.400, Neut % (Auto) 62.9, Lymph % (Auto) 23.0, Navarro % (Auto) 9.4, Eos % (Auto) 2.5, Baso % (Auto) 1.8 H, Absolute Neuts (auto) 3.1, Absolute Lymphs (auto) 1.12, Nucleated RBC % 0, Differential Comment SCANNED, Sodium 134, Potassium 5.8 H, Chloride 106, Carbon Dioxide 20.7 L, Anion Gap 8, BUN 22 H, Creatinine 1.65 H, Estim Creat Clear Calc 46.35 L, Est GFR (MDRD) Non-Af 47 L, BUN/Creatinine Ratio 13.5, Glucose 333 H, Calcium 8.2, Total Bilirubin 0.17, AST 23, ALT 13, Alkaline Phosphatase 141 H, Total Protein 5.5 L, Albumin 2.7 L, Globulin 2.8, Albumin/Globulin Ratio 1.0 09/02/24 07:38: POC Glucose 306 H Micro: Microbiology 09/01/24 10:01 Fluid - Pleural (Lung) Gram Stain - Final Rhythm Strip Rhythm Strip: Paced Rate: 108 Ectopy: None Imaging Radiology Impression Chest X-Ray 09/01/24 09:45 IMPRESSION: No pneumothorax. Slight decrease in left pleural fluid volume. Otherwise very similar to prior. Reading Location: [facility] Assessment and Plan . Assessment and plan: IMPRESSIONS: 1. Shock state, multifactorial with components of Entresto administration, intravascular volume depletion/ diuretics, now off pressors 2. Dyspnea, also multifactorial with contributions of pleural effusions,LV dysfunction, valvular heart disease, ascites from cirrhosis- s/p thoracentesis/ unable to perform paracentesis due to small amount of ascites. Symptoms out of proportion to volume of effusions alone, possible that underlying pathologies and/ or anxiety influencing his physical appearance 3. MALIK, creatinine rising 1.65 despite diuretic hold- suspect effects of cirrhosis. 4. Alcoholism, cirrhosis- chronic passive congestion may also be contributing- liver biopsy planned 09/04 RECOMMENDATIONS: 1. Cautious resumption of diuretics discussed starting low dose furosemide with Dr. Saxena. 2. Proceed with CT-guided liver biopsy and paracentesis when able 3. repeat CXR this AM . 4. Avoid nephrotoxic medications. 5. Continue Creon and Protonix. Critical Care Time: 509 minutes The entirety of this encounter was done via Telemedicine Physical Exam Const General Appearance: in distress HEENT normocephalic and head/scalp atraumatic Eyes PERRL, EOMs intact bilaterally and no scleral icterus Resp Effort and Inspection: tachypneic, labored and uses accessory muscles Cardio regular rate and regular rhythm GI Inspection: abdominal distention Neuro oriented x3, CN's II-XII intact bilaterally and moves all extremities Psych Mood & Affect: anxious Subjective Subjective Events reviewed. He appears overtly dyspneic this AM stating someone needs to do something about my breathing but is only requiring 2 L/min O2.
[2024-09-02] MEDS: Metoprolol(XL)Succ 25 MG Tablet 12.5 MG PO (09:28)
[2024-09-02] MEDS: Lactobacillis Acidophilus 1 CAP PO ×2 (09:28→22:46)
[2024-09-02] MEDS: Thiamine Hydrochloride 100 MG Tablet PO (09:29)
[2024-09-02] MEDS: Creon 24,000 unit DR Capsule 1 CAP PO ×2 (09:30→16:26)
[2024-09-02] MEDS: Glucerna Shake 120 ML LIQUID PO (09:31)
--- NOTE | 2024-09-02 09:35 | RAD_ITS ---
EXAM: XR Chest, 1 View CLINICAL INDICATION: EFFUSIONS TECHNIQUE: Frontal view of the chest. COMPARISON: No relevant prior studies available. FINDINGS: LUNGS AND PLEURAL SPACES: Bilateral pleural effusions. HEART: Cardiomegaly with mild congestion. MEDIASTINUM: Unremarkable. Normal mediastinal contour. BONES/JOINTS: Unremarkable. No acute fracture. TUBES, LINES AND DEVICES: Left-sided cardiac pacemaker. RAD/Chest 1 View (Portable) IMPRESSION: 1. Cardiomegaly with mild congestion. 2. Bilateral pleural effusions. Reading Location: [id number]
--- NOTE | 2024-09-02 11:29 | NURSING ---
1130 Pt glucose 64 recheck 69. Pt given 4oz juice per protocol
--- NOTE | 2024-09-02 12:12 | NURSING ---
1200 rechecked BS 64 Gave another 4oz juice, asymptomatic at this time 1215 Rechecked 85
[2024-09-02 14:08] LABS: Albumin, Body Fluid 0.4 g/dL (Not Estab.)
[2024-09-02] MEDS: MELATONIN 3 MG TABLET PO (22:52)
[2024-09-02] MEDS: 0.9% Saline Lock 10 ML Syringe IV (22:53)
[2024-09-02] MEDS: Insulin Glargine-YFGN 100 UNIT/ML Pen 10 UNIT SC (23:27)
[2024-09-03] VITALS (11 sets, daily range): BP systolic 102–121; BP diastolic 67–94; PULSE 78–98; RESP 16–22; TEMP 36.4–36.9; O2SAT 93–97; BMI 21.2
[2024-09-03] MEDS: Creon 24,000 unit DR Capsule 1 CAP PO ×2 (08:46→17:40)
[2024-09-03] MEDS: Thiamine Hydrochloride 100 MG Tablet PO (08:46)
[2024-09-03 08:47] LABS: Anion Gap 8 (5-15); BUN 21 mg/dL (4-19); BUN/Creat Ratio 13.6 RATIO (10-20); Calcium,Total 8.5 mg/dL (7.6-11.0); Carbon Dioxide 22.8 mmol/L (21.0-32.0); Chloride 106 mmol/L (98-108); Estimated Creatinine Clearance 47.34 ml/min (50-250); Glucose 121 mg/dL (70-99); Potassium 5.2 mmol/L (3.3-5.1)
--- NOTE | 2024-09-03 09:45 | PCM.PN.HOSP ---
Subjective Subjective Chest x-ray from yesterday shows that he has a decrease in the pleural effusions. He says that he is short of breath however he is still only on 2 L nasal cannula at rest. He has not active and does not consistently do his incentive spirometry Objective Data Objective Data Vital Signs: Vital Signs Temp Pulse Resp BP Pulse Ox O2 Del Method O2 Flow Rate 97.6 F L 93 17 118/88 H 94 Nasal Cannula 2 09/03/24 08:35 09/03/24 08:35 09/03/24 08:35 09/03/24 08:35 09/03/24 08:35 09/03/24 08:39 09/03/24 08:39 FiO2 31 08/30/24 10:09 Oxygen Flow Rate (L/min) 2 Oxygen Delivery Method Nasal Cannula Weight: 151 lb 3.794 oz Body Mass Index (BMI) 21.2 Intake & Output: Intake and Output for Last 24 Hours 09/02/24 09/03/24 09/04/24 03:59 03:59 03:59 Intake Total 1140 / 1140 960 / 960 Output Total 1062 / 1062 1411 / 1411 Balance 78 / 78 -451 / -451 Lab / Micro Data 09/02/24 06:15 09/03/24 08:05 Labs: Laboratory Results - last 24 hr 09/01/24 09:58: Fluid Amylase 16 09/01/24 10:01: Fluid Albumin 0.4 09/02/24 11:48: POC Glucose 62 L 09/02/24 12:20: POC Glucose 85 09/02/24 15:42: POC Glucose 206 H 09/02/24 22:49: POC Glucose 123 H 09/03/24 02:46: POC Glucose 128 H 09/03/24 06:46: POC Glucose 160 H 09/03/24 08:05: Sodium 137, Potassium 5.2 H, Chloride 106, Carbon Dioxide 22.8, Anion Gap 8, BUN 21 H, Creatinine 1.57 H, Estim Creat Clear Calc 47.34 L, Est GFR (MDRD) Non-Af 50 L, BUN/Creatinine Ratio 13.6, Glucose 121 H, Calcium 8.5 Micro: Microbiology 09/01/24 10:01 Fluid - Pleural (Lung) Gram Stain - Final 09/01/24 10:01 Fluid - Pleural (Lung) Body Fluid Culture - Preliminary No growth-Final to follow Radiography Diagnostic Testing: Radiology Impression Chest X-Ray 09/02/24 09:35 IMPRESSION: 1. Cardiomegaly with mild congestion. 2. Bilateral pleural effusions. Reading Location: [facility] Rhythm Strip Rhythm Strip: Paced Rate: 108 Ectopy: None Physical Exam Narrative General: Alert, Oriented x3, resting comfortably, cooperative, No apparent distress HEENT: Atraumatic, PERRLA, EOMI, Normocephalic Oral: Moist Mucosa Neck: Supple, No JVD Lungs: Diminished bilateral bases, Normal air movement, No rhonchi, No wheeze, No rales Cardiovascular: Regular rate, Regular Rhythm, Normal S1, Normal S2, No murmurs Abdomen: Soft, Non Tender, Non-Distended, No Hepato-splenomegaly Extremities: Edema, Capillary Refill Less than 3 Seconds Skin: No rashes, No breakdown Musculoskeletal: No Tenderness to Palpation of Joints or Extremities Neurological: No focal neurological deficits, moves all extremities Psych/Mental Status: Normal affect, appropriate Assessment & Plan Assessment/Plan (1) Medically noncompliant: (2) History of diabetes mellitus: (3) Pleural effusion: (4) Pleural effusion associated with hepatic disorder: PLAN: Plan 1. 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 Will need a liver biopsy on Wednesday ? Off of pressors ? Appreciate environmental emergencies assistant assistance ? He is not septic ? Thoracentesis had 1.4 L removed fluid studies indicated transudative effusion likely related to his heart failure and liver disease. ? 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 Given his hypotension we will hold his Entresto and Aldactone, can continue with his metoprolol and restart low-dose Lasix ? Continue with his Farxiga both for his diabetes and his CHF 2. DM2 ? Continue with Farxiga but hold his metformin ? Continue with sliding scale insulin ? Accu-Cheks ACHS ? Will monitor make adjustments as necessary 3. GERD/chronic pancreatitis ? Stable ? Continue with PPI ? Will also continue with his Creon DVT: Shantal Charges/Coding Visit Charges Inpatient E&M: 84557 Subs Hosp L2
[2024-09-03] MEDS: Lactobacillis Acidophilus 1 CAP PO ×2 (11:25→22:20)
[2024-09-03] MEDS: Metoprolol(XL)Succ 25 MG Tablet 12.5 MG PO (11:25)
[2024-09-03] MEDS: Glucerna Shake 120 ML LIQUID PO ×4 (11:33→22:20)
--- NOTE | 2024-09-03 12:29 | PN.CC_ITS ---
Objective Data Objective Data Vital Signs: Vital Signs Last response 3 Temperature 36.4 C L 09/03/24 11:22 Temperature Source Oral 09/03/24 11:22 Pulse Rate 98 09/03/24 11:25 Pulse Strength Normal (2+) 09/02/24 08:45 Respiratory Rate 16 09/03/24 11:22 Respiratory Effort Normal, Short of Breath 09/03/24 08:39 Respiratory Depth Normal 09/02/24 08:47 Respiratory Pattern Normal 09/03/24 10:30 Blood Pressure 113/88 H 09/03/24 11:22 Blood Pressure Mean 96 09/03/24 11:22 Blood Pressure Source Monitor 09/03/24 11:22 Blood Pressure Position Semi-Fowlers 09/03/24 11:22 Blood Pressure Location Left Arm 09/03/24 11:22 Pulse Ox 97 09/03/24 11:22 Oxygen Delivery Method Nasal Cannula 09/03/24 11:22 Oxygen Flow Rate (L/min) 2 09/03/24 08:39 Fraction of Inspired Oxygen (FIO2) 31 08/30/24 10:09 I&O: I&O Last 24 Hours 3 09/02/24 09/03/24 09/03/24 23:59 11:59 23:59 Intake Total 960 / 960 Output Total 1161 / 1711 Balance -201 / -751 I&O: Total Stay 3 08/28/24 17:45 thru 09/03/24 06:47 Intake Total 5922.57 Output Total 6371 Balance -448.43 Current Meds Ordered / Administered: Current meds ordered / Administered 3 Generic Name Dose Route Start Last Admin Trade Name Adolfo PRN Reason Stop Dose Admin Acetaminophen 650 mg 08/29/24 20:02 09/03/24 06:52 Acetaminophen 325 Mg Tablet PO 650 mg Q4H PRN PRN Administration Fever, pain 1-10/10 Albuterol/Ipratropium 3 ml 08/31/24 08:30 09/03/24 10:28 Ipratropium/Albuterol Sulfate 3 Ml Ampul.Neb INHALATION 3 ml Q4HWA.RT KUNAL Administration Atorvastatin Calcium 10 mg 08/29/24 22:00 09/02/24 22:47 Atorvastatin Calcium 10 Mg Tablet PO 10 mg QHS KNUAL Administration Empagliflozin 25 mg 08/29/24 10:00 09/03/24 11:25 Empagliflozin 25 Mg Tablet PO 25 mg DAILY KUNAL Administration Enoxaparin Sodium 40 mg 08/29/24 10:00 09/03/24 11:24 Enoxaparin 40 Mg/0.4 Ml Syringe SC 40 mg DAILY KUNAL Administration Ferrous Sulfate 325 mg 08/29/24 12:00 09/03/24 11:26 Ferrous Sulfate 325 Mg Tablet PO 325 mg DAILY@1200 KUNAL Administration Folic Acid 1 mg 08/29/24 08:00 09/03/24 08:47 Folic Acid 1 Mg Tablet PO 1 mg DAILY@0800 KUNAL Administration Furosemide 20 mg 09/02/24 10:00 09/03/24 11:24 Furosemide 20 Mg Tablet PO 20 mg DAILY KUNAL Administration Protocol Gabapentin 300 mg 08/29/24 10:00 09/03/24 11:24 Gabapentin 300 Mg Capsule PO 300 mg DAILY KUNAL Administration Glucagon 1 mg 08/29/24 13:40 Glucagon 1 Mg/Ml Syringe IM X1 PRN Hypoglycemia Protocol Dextrose 250 mls @ 0 mls/hr 08/29/24 13:40 Dextrose 10%-Water IV .Q0M PRN HYPOGLYCEMIA Protocol As Directed Insulin Glargine 10 unit 08/30/24 22:00 09/02/24 23:27 Insulin Glargine-Yfgn 100 Unit/Ml Pen SC 10 unit QHS KUNAL Administration Insulin Human Lispro 0 unit 08/29/24 16:00 09/03/24 11:28 Insulin Lispro 100 Unit/Ml Insuln.Pen SC 4 u ACHS KUNAL Administration Protocol Melatonin 3 mg 08/29/24 01:24 09/02/24 22:52 Melatonin 3 Mg Tablet PO 3 mg QHS PRN PRN Administration INSOMNIA Metoprolol Succinate 12.5 mg 08/29/24 10:00 09/03/24 11:25 Metoprolol(Xl)Succ 25 Mg Tablet PO 12.5 mg DAILY KUNAL Administration Protocol Midodrine 10 mg 08/31/24 12:00 09/03/24 11:34 Midodrine Hcl 5 Mg Tablet PO 10 mg TIDCM KUNAL Administration Multivitamins 1 tablet 08/29/24 08:00 09/03/24 08:46 Multivitamins,Therapeutic Tablet PO 1 tablet DAILYCM KUNAL Administration Nutritional Formula (Lactose Free) 120 ml 08/29/24 18:00 09/03/24 11:33 Glucerna Shake 120 Ml Liquid PO 120 ml 4X/DAY KUNAL Administration Ondansetron HCl 4 mg 08/29/24 14:41 09/01/24 06:30 Ondansetron 4 Mg/2 Ml Vial IV 4 mg Q8H PRN PRN Administration NAUSEA/VOMITING Pancrelipase 1 cap 08/29/24 08:00 09/03/24 08:46 Creon [address] Capsule PO 1 cap BIDCM KUNAL Administration Pantoprazole Sodium 40 mg 08/29/24 10:00 09/03/24 11:25 Pantoprazole Sodium 40 Mg Tablet PO 40 mg BID KUNAL Administration Sodium Chloride 10 - 40 ml 08/29/24 01:28 09/02/24 22:53 0.9% Saline Lock 10 Ml Syringe IV 10 ml UD PRN Administration SALINE FLUSH Thiamine HCl 100 mg 08/29/24 08:00 09/03/24 08:46 Thiamine Hydrochloride 100 Mg Tablet PO 100 mg DAILYCM KUNAL Administration Medical Records Data Attestation: I reviewed the patient's medical records Lab / Micro Data Attestation: I reviewed the patient's lab results. 09/02/24 06:15 09/03/24 08:05 Labs: Laboratory Results - last 24 hr 09/01/24 09:58: Fluid Amylase 16 09/01/24 10:01: Fluid Albumin 0.4 09/02/24 11:48: POC Glucose 62 L 09/02/24 12:20: POC Glucose 85 09/02/24 15:42: POC Glucose 206 H 09/02/24 22:49: POC Glucose 123 H 09/03/24 02:46: POC Glucose 128 H 09/03/24 06:46: POC Glucose 160 H 09/03/24 08:05: Sodium 137, Potassium 5.2 H, Chloride 106, Carbon Dioxide 22.8, Anion Gap 8, BUN 21 H, Creatinine 1.57 H, Estim Creat Clear Calc 47.34 L, Est GFR (MDRD) Non-Af 50 L, BUN/Creatinine Ratio 13.6, Glucose 121 H, Calcium 8.5 09/03/24 11:28: POC Glucose 229 H Micro: Microbiology 09/01/24 10:01 Fluid - Pleural (Lung) Gram Stain - Final 09/01/24 10:01 Fluid - Pleural (Lung) Body Fluid Culture - Preliminary No growth-Final to follow Rhythm Strip Rhythm Strip: Paced Rate: 108 Ectopy: None Assessment and Plan . Assessment and plan: IMPRESSIONS: 1. Shock state, multifactorial with components of Entresto administration, intravascular volume depletion/ diuretics, now off pressors, RESOLVED 2. Dyspnea, also multifactorial with contributions of pleural effusions,LV dysfunction, valvular heart disease, ascites from cirrhosis- s/p thoracentesis/ unable to perform paracentesis due to small amount of ascites. Symptoms out of proportion to volume of effusions alone, possible that underlying pathologies and/ or anxiety influencing his physical appearance 3. MALIK, creatinine rising, suspect effects of cirrhosis. 4. 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 diuretics as tolerated by creatinine 2. Proceed with CT-guided liver biopsy and paracentesis when able 3. Avoid nephrotoxic medications. 5. Continue Creon and Protonix. Critical Care Time: The entirety of this encounter was done via Telemedicine Subjective Subjective He complains of ongoing dyspnea but actually seems in a better place today; less overtly dyspneic and anxious. States he doesn't think he is long for this world when I describe to him some of the anticipated limitations of available interventions at our disposal.
[2024-09-03] MEDS: Insulin Glargine-YFGN 100 UNIT/ML Pen 10 UNIT SC (22:21)
[2024-09-03] MEDS: MELATONIN 3 MG TABLET PO (22:23)
[2024-09-04] VITALS (18 sets, daily range): BP systolic 113–138; BP diastolic 84–102; PULSE 66–100; RESP 16–30; TEMP 36.3–36.8; O2SAT 83–99; BMI 21.4
[2024-09-04 04:31] LABS: Hematocrit 27.8 % (40-54); Hemoglobin 8.7 g/dL (13.0-16.5); Immature Granulocytes Count 0.030 X10^3/uL (0.0-0.0); Mean Corp Hgb Conc 31.3 g/dL (32-36); Mean Corpuscular Volume 106.1 fL (80-94); Mean Platelet Vol. 11.2 fl (6.2-12.0); NRBC Flagged by Analyzer 0 % (0-5); POSITIVE MORPHOLOGY YES; Platelet Count 184 K/mm3 (150-450); RBC Distribution Width CV 14.4 % (11.6-14.6); RBC Distribution Width SD 55.8 fl (35.1-43.9); Red Blood Count 2.62 M/mm3 (4.6-6.2); White Blood Count 5.7 K/mm3 (4.4-11.0)
[2024-09-04 04:32] LABS: Differential Indicated SCAN CRITERIA MET
[2024-09-04 04:56] LABS: Anion Gap 10 (5-15); BUN 24 mg/dL (4-19); BUN/Creat Ratio 15.4 RATIO (10-20); Calcium,Total 8.6 mg/dL (7.6-11.0); Carbon Dioxide 21.3 mmol/L (21.0-32.0); Chloride 105 mmol/L (98-108); Estimated Creatinine Clearance 49.14 ml/min (50-250); Glucose 110 mg/dL (70-99); Potassium 5.8 mmol/L (3.3-5.1)
[2024-09-04 05:46] LABS: Differential Comment SCANNED
[2024-09-04] MEDS: Lactobacillis Acidophilus 1 CAP PO (08:40)
[2024-09-04] MEDS: Thiamine Hydrochloride 100 MG Tablet PO (08:40)
[2024-09-04] MEDS: Metoprolol(XL)Succ 25 MG Tablet 12.5 MG PO (08:41)
--- NOTE | 2024-09-04 09:48 | PCM.PN.HOSP ---
Subjective Subjective No issues overnight, still says that he short of breath despite having nasal cannula at 2 L maintaining his saturations pretty well. Pleural effusions are much improved after bilateral thoracentesis Objective Data Objective Data Vital Signs: Vital Signs Temp Pulse Resp BP Pulse Ox O2 Del Method O2 Flow Rate 98.1 F 92 18 135/102 H 92 Nasal Cannula 2 09/04/24 08:35 09/04/24 09:25 09/04/24 09:25 09/04/24 08:35 09/04/24 08:35 09/04/24 09:25 09/04/24 09:25 FiO2 31 08/30/24 10:09 Oxygen Flow Rate (L/min) 2 Oxygen Delivery Method Nasal Cannula Weight: 153 lb 0.013 oz Body Mass Index (BMI) 21.4 Intake & Output: Intake and Output for Last 24 Hours 09/03/24 09/04/24 09/05/24 03:59 03:59 03:59 Intake Total 960 / 960 760 / 760 Output Total 1411 / 1411 120 / 120 80 / 80 Balance -451 / -451 640 / 640 -80 / -80 Lab / Micro Data 09/04/24 04:15 09/04/24 04:15 Labs: Laboratory Results - last 24 hr 09/03/24 11:28: POC Glucose 229 H 09/03/24 16:53: POC Glucose 220 H 09/03/24 22:17: POC Glucose 165 H 09/04/24 04:15: WBC 5.7, RBC 2.62 L, Hgb 8.7 L, Hct 27.8 L, MCV 106.1 H, MCH 33.2 H, MCHC 31.3 L, RDW Std Deviation 55.8 H, RDW Coeff of Kalpana 14.4, Plt Count 184, MPV 11.2, Immature Gran % (Auto) 0.500, Neut % (Auto) 65.8, Lymph % (Auto) 21.2, Swisher % (Auto) 9.5, Eos % (Auto) 1.6, Baso % (Auto) 1.4 H, Absolute Neuts (auto) 3.7, Absolute Lymphs (auto) 1.20, Nucleated RBC % 0, Differential Comment SCANNED, Sodium 136, Potassium 5.8 H, Chloride 105, Carbon Dioxide 21.3, Anion Gap 10, BUN 24 H, Creatinine 1.53 H, Estim Creat Clear Calc 49.14 L, Est GFR (MDRD) Non-Af 51 L, BUN/Creatinine Ratio 15.4, Glucose 110 H, Calcium 8.6 09/04/24 06:15: POC Glucose 93 Micro: Microbiology 09/01/24 10:01 Fluid - Pleural (Lung) Gram Stain - Final 09/01/24 10:01 Fluid - Pleural (Lung) Body Fluid Culture - Preliminary No growth-Final to follow Rhythm Strip Rhythm Strip: Paced Rate: 108 Ectopy: None Physical Exam Narrative General: Alert, Oriented x3, resting comfortably, cooperative, No apparent distress HEENT: Atraumatic, PERRLA, EOMI, Normocephalic Oral: Moist Mucosa Neck: Supple, No JVD Lungs: Diminished bilateral bases, Normal air movement, No rhonchi, No wheeze, No rales Cardiovascular: Regular rate, Regular Rhythm, Normal S1, Normal S2, No murmurs Abdomen: Soft, Non Tender, Non-Distended, No Hepato-splenomegaly Extremities: Edema, Capillary Refill Less than 3 Seconds Skin: No rashes, No breakdown Musculoskeletal: No Tenderness to Palpation of Joints or Extremities Neurological: No focal neurological deficits, moves all extremities Psych/Mental Status: Normal affect, appropriate Assessment & Plan Assessment/Plan (1) Medically noncompliant: (2) History of diabetes mellitus: (3) Pleural effusion: (4) Pleural effusion associated with hepatic disorder: PLAN: Plan 1. 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 Will need a liver biopsy today ? Off of pressors ? Appreciate oracle erp architect assistance ? He is not septic ? Thoracentesis had 1.4 L removed fluid studies indicated transudative effusion likely related to his heart failure and liver disease. ? 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 Given his hypotension we will hold his Entresto and Aldactone, can continue with his metoprolol and restart his home dose Lasix ? Continue with his Farxiga both for his diabetes and his CHF 2. DM2 ? Continue with Farxiga but hold his metformin ? Continue with sliding scale insulin ? Accu-Cheks ACHS ? Will monitor make adjustments as necessary 3. GERD/chronic pancreatitis ? Stable ? Continue with PPI ? Will also continue with his Creon DVT: Shantal Charges/Coding Visit Charges Inpatient E&M: 63318 Subs Hosp L2
[2024-09-04] MEDS: 0.9% Saline Lock 10 ML Syringe IV ×2 (12:04→13:13)
--- NOTE | 2024-09-04 12:35 | CCN.REFER ---
CCN REFERRAL REVIEWED, AND PATIENT DOES NOT QUALIFY DUE TO PSYCH EVAL IN JULY FOR SUICIDE IDEATIONS.
--- NOTE | 2024-09-04 13:00 | US_ITS ---
PROCEDURE: LIVER BIOPSY ULTRASOUND 09/04/2024 REASON FOR EXAM: PER DR REQUEST TO BE DONE IN US EVAL FOR CIRRHOSIS PROCEDURE: LIVER BIOPSY ULTRASOUND Following informed consent, and using standard sterile technique, an ultrasound- guided right inferior hepatic core biopsy was performed. 2% lidocaine local anesthesia was followed by placement of a 10 cm 18 gauge CorVoWikinvestt core biopsy system. 3 samples were obtained and sent to pathology for evaluation. There were no immediate complications. US/Liver Biopsy Ultrasound IMPRESSION: Successful ULTRASOUND GUIDED RANDOM LIVER BIOPSY. Pathology results pending. Reading Location: [place] [id number]
[2024-09-04] MEDS: Lidocaine 2% (20 ml mdv) 20 ML Vial INFILT (13:48)
--- NOTE | 2024-09-04 14:25 | PCM.DC ---
Discharge Instructions DC O2, CPAP, BIPAP needs Home O2 Discharge instructions: No Dressing / Incision Discharge Activity: Return to Normal Activity Dressing / Incision Call your doctor if you observe: Fever of 101 or Higher, Shortness of breath, Dizziness, Fainting spells, Swelling in the ankles, Chest pain and Increased palpitations (irregular heartbeat) Follow Up Care Test Results: Test results from this visit will be discussed in further detail at your follow-up appointment, if applicable. Discharge Plan Admission Admit Date/Time: 08/29/24 00:33 Attending Provider: Lucas Frausto Primary Care Provider: Sigrid Call [facility] Consulting Providers: Jacky Vila; Vargas Strong; Alcides Tucker; Aramis Palacios; Barry Sheehan; Conrado Snyder; Aldo Castellano; [place]; Chen Merrill; Mundo aMrcelino; Robinson Madrid; Suleman Denis; Meli Miles; Tiara Horowitz; Monisha Fontenot; Yunier Allred; Jose Pacheco; Marquez Elmore; Wilbert Lozano; Abdirahman Gardner; Vladimir Matson; Dwight Vora; Bronson Peterson; Toni Dodge Instructions Patient Instructions: ZEHRA GILLIS Biopsy Liver Parvez, ZEHRA GILLIS Procedural Sedation Additional Instructions / Restrictions: Follow-up with your PCP in 3 to 5 days to monitor your potassium and renal function. This is necessary in order to determine whether or not we should restart your spironolactone. Discharge Orders/Prescriptions Prescriptions: Continued atorvastatin 10 mg tablet 10 mg PO DAILY dapagliflozin propanediol [Farxiga] 10 mg Tablet 10 mg PO DAILY multivitamin Tablet 1 tab PO DAILY gabapentin 300 mg Capsule 300 mg PO DAILY metformin 500 mg tablet extended release 24 hr 500 mg PO DAILY Patient Comments: PT STATES THEY TAKE THIS ONCE DAILY. pantoprazole 40 mg tablet,delayed release (DR/EC) 40 mg PO BID Qty: 60 0RF thiamine HCl (vitamin B1) [Vitamin B-1] 100 mg Tablet 100 mg PO DAILYCM Qty: 0 0RF folic acid 1 mg Tablet 1 mg PO DAILY@0800 Qty: 0 0RF ferrous sulfate [FeroSul] 325 mg (65 mg iron) tablet 325 mg PO DAILY metoprolol succinate 25 mg Tablet Extended Release 24 Hr 12.5 mg PO DAILY 30 Days Qty: 15 2RF Jacoby,saliva-B.bif-S.therm 175 mg Capsule 1 cap PO BID Entresto 24-26 mg tablet 1 tab PO BID Qty: 60 0RF furosemide 20 mg Tablet 40 mg PO DAILY 30 Days Qty: 60 2RF Creon 24,000-76,000 -120,000 unit Capsule,Delayed Release(Dr/Ec) 1 cap PO BIDCM Patient Comments: med ordered 3x/day. pt states he takes it 'maybe 2x/day' Held spironolactone 25 mg Tablet 25 mg PO DAILY 30 Days Qty: 30 2RF Hold Instructions: Resume on 09/14/24. Referrals / Follow Up: Heather Daley TAPE STRINGER, TAPE STRINGER-C [Non-Staff -Ordering Privileges] - 09/05/24 2:00 pm Peggy Lima PA [Med Staff - Adv Practice Prof] - 09/07/24 9:30 am Sigrid Call DO [Primary Care Provider] - 09/06/24 9:00 am Disposition Disposition (needs filled in before D/C Order can be placed): Home, Self Care
--- NOTE | 2024-09-04 14:43 | CASEMGMT ---
Social Work SW met w/pt in regard to his anxiety. Pt states that he was seeing a case fitter at [facility], and they talked a lot about anxiety. Pt states he does breathing exercises and it helps. Pt is done w/[facility] now, had them when he was on probation. SW inquired if he would like to go back to counseling. Pt states he already has too many appts this week, but was open to taking the list of counseling resources. If he were to go back into counseling he would likely call [facility]. SW asked pt about his drinking, he states that he no longer is drinking, and does not need any resources in regard to his drinking. No further needs, pt home today. KARAN Weston
--- NOTE | 2024-09-04 15:01 | CASEMGMT ---
Addendum entered by Latha Pablo 09/04/24 16:20: ELIS KEATING updated that patient had become hypoxic and now requires home oxygen at discharge. ELIS KEATING received script and referral sent to [facility] with arrangements for tank to be delivered to patient's room. RN ZURI updated patient and discharge plan. Original Note: Patient has order of discharge. ELIS KEATING called and rescheduled appt for [facility] and updated in discharge plan. Patient does not qualify for home oxygen at discharge. ELIS KEATING in to discuss needs at discharge. Patient is requesting someone to help with medications at home. ELIS KEATING informed patient that a referral was sent to [facility] but patient was declined. RN ZURI encouraged patient to speak with pharmacist at [facility] about prepackaging medications, patient voiced understanding and appreciation. Patient is aware of follow-up appts and states he has already schedule transportation with insurance. Patient had no further questions or concerns
[2024-09-04] MEDS: Glucerna Shake 120 ML LIQUID PO (15:27)
[2024-09-04 15:56] LABS: Pathologist Comment/Body Fluid Reviewed
--- NOTE | 2024-09-04 16:20 | PCM.DC.SUM ---
Providers Date of Admission: 08/29/24 Primary Care Physician: Sigrid Call [facility], DO Consultations 08/31/24 05:48 Consult: Grass Cutter / Pulmonary Medicine Routine Consulting Provider: Intensivists/Pulmonary Med Reason for Consult: Hypotensive EMERGENT Consult: No Notified: Yes Date Notified: 08/31/24 Time Notified: 07:08 Method of Notification: Verbal 08/31/24 08:34 Consult: Gastroenterology Routine Consulting Provider: [facility] Reason for Consult: Cirrhosis EMERGENT Consult: No MD Notified: Yes Date Notified: 08/31/24 Time Notified: 08:34 Method of Notification: Text Reason For Visit: HYPOXIA, PLEURAL EFFUSION Diagnosis Discharge Diagnosis (1) Medically noncompliant: Status: Acute Code(s): Z91.199 - Patient's noncompliance with other medical treatment and regimen due to unspecified reason (2) History of diabetes mellitus: Status: Acute Code(s): Z86.39 - Personal history of other endocrine, nutritional and metabolic disease (3) Pleural effusion: Status: Acute Code(s): J90 - Pleural effusion, not elsewhere classified (4) Pleural effusion associated with hepatic disorder: Status: Acute Code(s): K76.9 - Liver disease, unspecified; J91.8 - Pleural effusion in other conditions classified elsewhere Medications at Discharge Home Medications atorvastatin 10 mg tablet 10 mg PO DAILY CHOLESTEROL 10/17/20 dapagliflozin propanediol 10 mg tablet (Farxiga) 10 mg PO DAILY DIABETES 09/30/21 multivitamin 1 tab PO DAILY SUPPLEMENT 11/11/21 gabapentin 300 mg capsule 300 mg PO DAILY NEUROPATHY 11/14/22 metformin 500 mg tablet,extended release 24 hr 500 mg PO DAILY DIABETES 11/15/22 folic acid 1 mg tablet 1 mg PO DAILY@0800 supplement #0 tabs 05/20/23 thiamine HCl (vitamin B1) 100 mg tablet (Vitamin B-1) 100 mg PO DAILYCM vitamin #0 tabs 05/20/23 pantoprazole 40 mg tablet,delayed release 40 mg PO BID reflux #60 tabs 06/27/23 ferrous sulfate 325 mg (65 mg iron) tablet (FeroSul) 325 mg PO DAILY supplement 06/30/24 metoprolol succinate 25 mg tablet,extended release 24 hr 12.5 mg (1/2 x 25 mg) PO DAILY blood pressure 30 days #15 tabs 07/06/24 spironolactone 25 mg tablet 25 mg PO DAILY diuretic 30 days #30 tabs 07/06/24 Held on 09/04/24. Instructions: Resume on 09/14/24. L.acidophil,salivari-Bifido bifidum-Strep thermoph 175 mg capsule 1 cap PO BID Probiotic 08/01/24 furosemide 20 mg tablet 40 mg (2 x 20 mg) PO DAILY 30 days #60 tabs 08/03/24 sacubitril 24 mg-valsartan 26 mg tablet (Entresto) 1 tab PO BID #60 tabs 08/03/24 tvujnf-pfojrjho-itbqsen 24,000-76,000-120,000 unit capsule,delayed rel (Creon) 1 cap PO BIDCM 08/29/24 Hospital Course Operations None Procedures Thoracentesis Summary of Care Provided Minutes Spent on Discharge: 36 Hospital Course: Per HPI: ANALILIA TALLEY, is a 64 M who presents to the emergency room with chief complaint of shortness of breath. Patient has significant past medical history of liver cirrhosis with ascites has been drained 4 times once a month for the last 4 months but has not been done this month yet. 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 Patient complains of increasing shortness of breath over the last several days with leg swelling, he denies any chest pain no coughing or fevers. Patient is not on oxygen at home but is requiring oxygen to maintain a saturation greater than 90% here in the hospital. Laboratory studies show a white blood cell count of 4.8, hemoglobin 10.1, hematocrit 31.6, platelets 181, sodium 137, potassium low at 3.1, chloride 102, bicarb 21.9, BUN 8, creatinine 1.1, glucose 369, troponin 67, troponin 57, urinalysis was negative chest x-ray shows bilateral pleural effusions. CT angiogram was done in late July and was negative for pulmonary embolism at that time and probability for a new PE at that time was considered low therefore another CT angiogram was not done at this time. Patient was scheduled to go home from the emergency room but due to hypoxia and need for oxygen he will be admitted here in the hospital. Hospital Course: 1. 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 He does have significant issues with medical noncompliance and has been in the hospital multiple times over the last 2 months. He was found to have bilateral pleural effusions and had thoracentesis done on the right with a 1.4 L removal and thoracentesis done on the left also with almost 1 L of fluid removed. Fluid studies demonstrated transudative process consistent both with his liver disease as well as his heart failure. After this process he developed some hypotension was given a liter of fluid back but had be placed in the ICU on pressors for little over 24 hours. He has been doing well since then we did attempt to get a paracentesis however there was not enough fluid to do the testing. Chest x-ray has demonstrated improvement in his bilateral pleural effusions. Today he was able to have a liver biopsy to definitively diagnose any kind of cirrhosis and post procedure I discussed with him the possibility for discharge and he expressed understanding of the risk benefits of going home and would like to go home today. He did have an amatory pulse ox that demonstrated hypoxia at rest. I have reviewed the oxygen testing, and this patient qualifies for the home equipment and portability. The patient is mobile in the home and the community. 2. Type 2 diabetes, GERD, chronic pancreatitis are all chronic medical conditions which complicate his care. His home medications were continued where appropriate Physical Exam Narrative General: Alert, Oriented x3, resting comfortably, cooperative, No apparent distress HEENT: Atraumatic, PERRLA, EOMI, Normocephalic Oral: Moist Mucosa Neck: Supple, No JVD Lungs: Diminished bilateral bases, Normal air movement, No rhonchi, No wheeze, No rales Cardiovascular: Regular rate, Regular Rhythm, Normal S1, Normal S2, No murmurs Abdomen: Soft, Non Tender, Non-Distended, No Hepato-splenomegaly Extremities: Edema, Capillary Refill Less than 3 Seconds Skin: No rashes, No breakdown Musculoskeletal: No Tenderness to Palpation of Joints or Extremities Neurological: No focal neurological deficits, moves all extremities Psych/Mental Status: Normal affect, appropriate Weight / BMI Weight Weight: 153 lb 0.013 oz Body Mass Index (BMI) 21.4 ABG / Lab / Microbiology Data 09/04/24 04:15 09/04/24 04:15 Laboratory: Laboratory Results - last 24 hr 09/01/24 10:01: Fl Pathologist Comment Reviewed 09/03/24 16:53: POC Glucose 220 H 09/03/24 22:17: POC Glucose 165 H 09/04/24 04:15: WBC 5.7, RBC 2.62 L, Hgb 8.7 L, Hct 27.8 L, MCV 106.1 H, MCH 33.2 H, MCHC 31.3 L, RDW Std Deviation 55.8 H, RDW Coeff of Kalpana 14.4, Plt Count 184, MPV 11.2, Immature Gran % (Auto) 0.500, Neut % (Auto) 65.8, Lymph % (Auto) 21.2, Casey % (Auto) 9.5, Eos % (Auto) 1.6, Baso % (Auto) 1.4 H, Absolute Neuts (auto) 3.7, Absolute Lymphs (auto) 1.20, Nucleated RBC % 0, Differential Comment SCANNED, Sodium 136, Potassium 5.8 H, Chloride 105, Carbon Dioxide 21.3, Anion Gap 10, BUN 24 H, Creatinine 1.53 H, Estim Creat Clear Calc 49.14 L, Est GFR (MDRD) Non-Af 51 L, BUN/Creatinine Ratio 15.4, Glucose 110 H, Calcium 8.6 09/04/24 06:15: POC Glucose 93 Microbiology: Microbiology 09/01/24 10:01 Fluid - Pleural (Lung) Gram Stain - Final 09/01/24 10:01 Fluid - Pleural (Lung) Body Fluid Culture - Final Culture exhibits no growth. 09/01/24 10:01 Fluid - Pleural (Lung) Anaerobic Culture - Preliminary No growth in 48 hours. Radiography Diagnostic Testing: Radiology Impression Liver Biopsy Ultrasound 09/04/24 13:00 IMPRESSION: Successful ULTRASOUND GUIDED RANDOM LIVER BIOPSY. Pathology results pending. Reading Location: [place] [id number] D/C Instructions Call your doctor if you observe: Fever of 101 or Higher, Shortness of breath, Dizziness, Fainting spells, Swelling in the ankles, Chest pain and Increased palpitations (irregular heartbeat) DC O2, CPAP, BIPAP Needs Home O2 Discharge instructions: No Meaningful Use Info Meaningful Use Meaningful Use Diagnoses (Choose all that apply): None applicable Discharge Plan Admission Admit Date/Time: 08/29/24 00:33 Attending Provider: Lucas Frausto Primary Care Provider: Sigrid Call [facility] Consulting Providers: Jacky Vila; Vargas Strong; Alcides Tucker; Aramis Palacios; Barry Sheehan; Conrado Snyder; Aldo Castellano; [place]; Chen Merrill; Mundo Marcelino; Robinson Madrid; Suleman Denis; Meli Miles; Tiara Horowitz; Monisha Fontenot; Yunier Allred; Jose Pacheco; Marquez Elmore; Wilbert Lozano; Abdirahman Gardner; Vladimir Matson; Dwight Vora; Bronson Peterson; Toni Dodge Instructions Patient Instructions: RAD RN Biopsy Liver Dc, ZEHRA RN Procedural Sedation Additional Instructions / Restrictions: Follow-up with your PCP in 3 to 5 days to monitor your potassium and renal function. This is necessary in order to determine whether or not we should restart your spironolactone. Discharge Orders/Prescriptions Prescriptions: Continued atorvastatin 10 mg tablet 10 mg PO DAILY dapagliflozin propanediol [Farxiga] 10 mg Tablet 10 mg PO DAILY multivitamin Tablet 1 tab PO DAILY gabapentin 300 mg Capsule 300 mg PO DAILY metformin 500 mg tablet extended release 24 hr 500 mg PO DAILY Patient Comments: PT STATES THEY TAKE THIS ONCE DAILY. pantoprazole 40 mg tablet,delayed release (DR/EC) 40 mg PO BID Qty: 60 0RF thiamine HCl (vitamin B1) [Vitamin B-1] 100 mg Tablet 100 mg PO DAILYCM Qty: 0 0RF folic acid 1 mg Tablet 1 mg PO DAILY@0800 Qty: 0 0RF ferrous sulfate [FeroSul] 325 mg (65 mg iron) tablet 325 mg PO DAILY metoprolol succinate 25 mg Tablet Extended Release 24 Hr 12.5 mg PO DAILY 30 Days Qty: 15 2RF L.acidoph,saliva-B.bif-S.therm 175 mg Capsule 1 cap PO BID Entresto 24-26 mg tablet 1 tab PO BID Qty: 60 0RF furosemide 20 mg Tablet 40 mg PO DAILY 30 Days Qty: 60 2RF Creon 24,000-76,000 -120,000 unit Capsule,Delayed Release(Dr/Ec) 1 cap PO BIDCM Patient Comments: med ordered 3x/day. pt states he takes it 'maybe 2x/day' Held spironolactone 25 mg Tablet 25 mg PO DAILY 30 Days Qty: 30 2RF Hold Instructions: Resume on 09/14/24. Referrals / Follow Up: Heather Daley NP, CREDENTIALING COORDINATOR-C [Non-Staff -Ordering Privileges] - 09/05/24 2:00 pm Peggy Lima PA [Med Staff - Adv Practice Prof] - 09/07/24 9:30 am Sigrid Call DO [Primary Care Provider] - 09/06/24 9:00 am Disposition Disposition (needs filled in before D/C Order can be placed): Home, Self Care Charges/Coding Visit Charges Inpatient E&M: 30536 Disch Hosp >30min
[2024-09-04] MEDS: Creon 24,000 unit DR Capsule 1 CAP PO (16:52)
[2024-09-05 10:01] LABS: Pathology Sent to OSU SEE PATHOLOGY REPORT
== END 2024-09-04 18:02 | disposition home or self-care (01) | DRG 291 ==
LOC: ED 20:43 → PCU 08-29 02:53 → MS3 08-29 22:54 → ICU 08-31 05:54 → PCU 09-02 13:05
PROVIDERS: Internal Medicine Critical Care Medicine; Admitting Provider Family Medicine; Emergency Provider Emergency Medicine; PCP Family Medicine; Visit Provider Family Medicine
DX: I11.0 Hypertensive heart disease with heart failure (principal); R57.1 Hypovolemic shock; I50.43 Acute on chronic combined systolic (congestive) and diastolic (congestive) heart failure; J90 Pleural effusion, not elsewhere classified; K86.1 Other chronic pancreatitis; K70.31 Alcoholic cirrhosis of liver with ascites; E11.9 Type 2 diabetes mellitus without complications; F10.20 Alcohol dependence, uncomplicated; I35.0 Nonrheumatic aortic (valve) stenosis; E78.5 Hyperlipidemia, unspecified; F17.200 Nicotine dependence, unspecified, uncomplicated; K21.9 Gastro-esophageal reflux disease without esophagitis; I25.2 Old myocardial infarction; Z79.899 Other long term (current) drug therapy; Z79.84 Long term (current) use of oral hypoglycemic drugs; Z91.199 Patient's noncompliance with other medical treatment and regimen due to unspecified reason
CPT/HCPCS: 32555; 36415; 71045; 71046; 76705; 76942; 80048; 80053; 81001; 82040; 82042; 82150; 82945; 82962; 83615; 84157; 84484; 85025; 85379; 85384; 85610; 85730; 87070; 87075; 87205; 88108; 88305; 88313; 89050; 93005; 94640; 94762; 97162; 97165; 97802; 99285; 99406; A4216; J1938; J2405

== ENCOUNTER 2024-10-06 11:36 | Emergency (ER) | payer MEDICARE, MEDICAID, SELFPAY ==
[2024-10-06 11:37] VITALS: BP 127/95; PULSE 104; RESP 22; TEMP 36.9; O2SAT 94; O2SAT 95; BMI 22.6
[2024-10-06 11:43] VITALS: BP 127/95; PULSE 98; RESP 20; TEMP 36.5; O2SAT 94
--- NOTE | 2024-10-06 11:50 | RAD_ITS ---
PROCEDURE: CHEST PA AND LATERAL 10/06/2024 REASON FOR EXAM: DYSPNEA TECHNIQUE: CHEST PA AND LATERAL COMPARISON: Prior study dated September 02, 2024. FINDINGS: Hardware: EKG electrodes are seen. Surgical clips are seen in the right axilla. Heart: Prior midline sternotomy. Mild cardiomegaly. Mediastinum: Calcification of the aortic arch. Lungs: Moderate-sized right pleural effusion with right basilar infiltration and/or atelectasis. Small left pleural effusion with left basilar atelectasis. Vascular congestion and mild CHF. Bones: Degenerative changes are identified within the thoracic spine. RAD/Chest PA and Lateral IMPRESSION: Moderate right pleural effusion with basilar compressive atelectasis. Small le ft pleural effusion with left basilar atelectasis. Vascular congestion and mild CHF. Reading Location: [id number]
--- NOTE | 2024-10-06 11:51 | EKG12_ITS ---
Test Reason : WEAKNESS Blood Pressure : */* mmHG Vent. Rate : 96 BPM Atrial Rate : 96 BPM P-R Int : 164 ms QRS Dur : 126 ms QT Int : 416 ms P-R-T Axes : -44 -6 88 degrees QTcB Int : 525 ms Atrial-sensed ventricular-paced rhythm with occasional Premature ventricular complexes Abnormal ECG Confirmed by Denys Pearson ([id number]), acquisitions editor CARLOS ROBLES ([id number]) on 10/10/2024 10:48:06 AM Referred By: Confirmed By: Denys Pearson
--- NOTE | 2024-10-06 11:52 | EDS_ITS ---
HPI <ANDREY Kendrick - Last Filed: 10/06/24 14:49> History of Present Illness Chief Complaint: Weakness Narrative Narrative: 64-year-old male with past medical history of HTN, DM2, pacemaker, cirrhosis, anemia, pancreatitis, aortic valve replacement x 2 (mechanical valve bovine no longer on blood thinners) presents with 1 week of increasing shortness of breath. He was admitted a month ago for hypoxia from pleural effusions and was drained and discharged on 2 L of O2. He states his pulse ox is always above 90% on the 2 L but he still feels short of breath. He did not think he could make it to his scheduled ultrasound next week. He is seeing Peggy in GI which he thinks is at Dr. Espitia's office. He denies fever, chills, chest pain, cough, abdominal pain, vomiting, melena or hematochezia. [facility] <ANDREY Kendrick - Last Filed: 10/06/24 14:49> [facility] Medical History (Updated 10/06/24 @ 14:49 by ANDREY Kendrick) Chronic pancreatitis Chronic pancreatitis due to chronic alcoholism Malnutrition Pancytopenia Medically noncompliant Thrombocytopenia Macrocytosis associated with alcohol Ascites due to alcoholic cirrhosis Chronic diarrhea Chronic alcohol abuse Abdominal ascites MALIK (acute kidney injury) Seizures Alcoholic hepatitis Chronic pancreatitis Gastric wall thickening Alcohol dependence Anxiety Diabetes Pancreatitis Myocardial infarct Pacemaker AAA (abdominal aortic aneurysm) Admitted to alcohol detoxification center Alcohol abuse Hx of hypercholesterolemia History of diabetes mellitus Alcohol dependence Substance abuse Smoker Alcoholism Right bundle branch block (RBBB) Non-sustained ventricular tachycardia Thoracic aortic aneurysm SVT (supraventricular tachycardia) Ascending aortic dissection (~2005) Pure hypercholesterolemia Adrenal nodule Hiatal hernia Left carotid bruit Cardiac pacemaker in situ (~06/2016) Essential hypertension Pacemaker Sick sinus syndrome Tobacco use HTN (hypertension) Diabetes mellitus, type II Home Medications ?Medication ?Instructions ?Recorded ?Last Taken ?Type atorvastatin 10 mg tablet 10 mg PO DAILY CHOLESTEROL 0 10/17/20 07/31/24 History dapagliflozin propanediol 10 mg 10 mg PO DAILY DIABETE S 09/30/21 07/31/24 History tablet (Farxiga) multivitamin 1 tab PO DAILY SUPPLEMENT 07/31/24 History gabapentin 300 mg capsule 300 mg PO DAILY NEUROPATHY 1 07/31/24 History metformin 500 mg tablet,extended 500 mg PO DAILY DIABE COLLETTE 11/15/22 07/31/24 History release 24 hr folic acid 1 mg tablet 1 mg PO DAILY@0800 supplemen t #0 05/20/23 07/31/24 Rx tabs thiamine HCl (vitamin B1) 100 mg 100 mg PO DAILYCM vit padilla #0 tabs 05/20/23 07/31/24 Rx tablet (Vitamin B-1) pantoprazole 40 mg tablet,delayed 40 mg PO BID reflux #60 tabs 06/27/23 07/31/24 Rx release ferrous sulfate 325 mg (65 mg 325 mg PO DAILY suppleme nt 06/30/24 07/31/24 History iron) tablet (FeroSul) metoprolol succinate 25 mg 12.5 mg (1/2 x 25 mg) PO DA RASHEED 07/06/24 07/31/24 Rx tablet,extended release 24 hr blood pressure 30 days # 15 tabs spironolactone 25 mg tablet 25 mg PO DAILY diuretic 30 days 07/06/24 07/31/24 Rx Held on 09/04/24. #30 tabs Instructions: Resume on 09/14/24. L.acidophil,salivari-Bifido 1 cap PO BID Probiotic 07/31/24 History bifidum-Strep thermoph 175 mg capsule furosemide 20 mg tablet 40 mg (2 x 20 mg) PO DAILY 3 0 days 08/03/24 Unknown Rx #60 tabs sacubitril 24 mg-valsartan 26 mg 1 tab PO BID #60 tabs 08/03/24 Unknown Rx tablet (Entresto) ikodxi-prvhpjge-nnjxzlr 1 cap PO BIDCM 08/29/24 Unkn own History 24,000-76,000-120,000 unit capsule,delayed rel (Creon) Allergy/AdvReac Type Severity Reaction Status Date / Time No Known Allergies Allergy Verified 10/06/24 11:47 Family History Father CAD (coronary artery disease) Mother Dementia Surgical History History of aortic aneurysm repair (~2016) H/O cardiac catheterization History of cataract surgery History of hernia repair History of aortic valve replacement with bioprosthetic valve (~2016) H/O aortic valve replacement Social History household members: family housing: house Smoking Status: Light Smoker (<10/day) alcohol intake: current alcohol intake frequency: 0-2 drinks per day details: Reports currently ~ 2 tall boys daily. substance use type: former substance user caffeine: Yes Type: coffee Number of servings: 3 EXAM <ANDREY Kendrick - Last Filed: 10/06/24 14:49> Physical Exam Narrative Exam Narrative: CONST: Patient sitting in no acute distress. EYES: Normal inspection. NECK: Normal inspection. RESP: No respiratory distress, diminished in both lung bases. CVS: Regular rate and rhythm, no murmur, no gallop. ABD: Soft and nontender, no guarding or rebound, nondistended, hepatomegaly. SKIN: Color normal, no rash, warm, dry, intact. EXTREMITIES: Normal appearance, trace bilateral pedal edema. NEURO: Alert and answering questions appropriately. PSYCH: Normal affect. Const Vital Signs: 10/06/24 11:37 10/06/24 11:43 10/06/24 12:41 Temperature 98.5 F 97.7 F L Temperature Source Oral Oral Pulse Rate 104 H 98 Respiratory Rate 22 H 20 H Respiratory Effort Short of Breath Respiratory Pattern Tachypnea Blood Pressure 127/95 H 127/95 H Blood Pressure Mean 105 105 Pulse Ox 94 94 Oxygen Delivery Method Nasal Cannula Nasal Cannula Oxygen Flow Rate (L/min) 2 2 Fraction of Inspired Oxygen (FIO2) 10/06/24 12:43 10/06/24 14:29 Temperature 97.7 F L Temperature Source Oral Pulse Rate 100 102 H Respiratory Rate 24 H 22 H Respiratory Effort Respiratory Pattern Blood Pressure 138/106 H 141/119 H Blood Pressure Mean 116 126 Pulse Ox 94 100 Oxygen Delivery Method Nasal Cannula Nasal Cannula Oxygen Flow Rate (L/min) 2 Fraction of Inspired Oxygen (FIO2) 2 <Dr. Valeriy Flores DO - Last Filed: 10/06/24 15:15> Physical Exam Const Vital Signs: 10/06/24 11:37 10/06/24 11:43 10/06/24 12:41 Temperature 98.5 F 97.7 F L Temperature Source Oral Oral Pulse Rate 104 H 98 Respiratory Rate 22 H 20 H Respiratory Effort Short of Breath Respiratory Pattern Tachypnea Blood Pressure 127/95 H 127/95 H Blood Pressure Mean 105 105 Pulse Ox 94 94 Oxygen Delivery Method Nasal Cannula Nasal Cannula Oxygen Flow Rate (L/min) 2 2 Fraction of Inspired Oxygen (FIO2) 10/06/24 12:43 10/06/24 14:29 Temperature 97.7 F L Temperature Source Oral Pulse Rate 100 102 H Respiratory Rate 24 H 22 H Respiratory Effort Respiratory Pattern Blood Pressure 138/106 H 141/119 H Blood Pressure Mean 116 126 Pulse Ox 94 100 Oxygen Delivery Method Nasal Cannula Nasal Cannula Oxygen Flow Rate (L/min) 2 Fraction of Inspired Oxygen (FIO2) 2 [facility] <ANDREY Kendrick - Last Filed: 10/06/24 14:49> [facility] Narrative Medical decision making narrative: 64-year-old male with cirrhosis and congestive heart failure on baseline 2 L O2 presents with 1 week of increased shortness of breath. Apparently he was hypoxic at home but this was on room air and he has been sort 2 L at all times. He is 94% or above on 2 L here with stable vital signs. Low lung bases are diminished and he has +1 bilateral ankle edema. Labs show normal white count of 5.1, stable hemoglobin at 10.9, platelets 140. Electrolytes and renal function are normal. Glucose 279 with normal CO2 and gap. LFTs unremarkable. INR is 1.3. Chest x-ray shows moderate right pleural effusion and small left pleural effusion with vascular congestion; on my review the right sided pleural effusion is worse than his admission a month ago. He did not know his home Lasix dosage but from recent discharge it is 40 mg once daily. I ordered IV Lasix 40 mg. He was ambulated on his baseline 2 L and maintained 93% or above so he does not require admission or emergent thoracentesis. He is scheduled to see both his implementation specialist payroll and have an abdominal ultrasound with GI next week to assess if he needs any drainage procedure. He was discharged in stable condition. External records reviewed: Prior admission 08/29/24 -09/04/24 for hypoxia secondary to bilateral pleural effusions from diastolic CHF exacerbation and cirrhosis. He had thoracentesis with 1.4 L removed on the right and 1 L removed on the left. Fluid studies showed a transudative process consistent with liver disease and heart failure. Lab Data Attestation: I reviewed the patient's lab results. Labs: Laboratory Results - last 24 hr 10/06/24 11:57 WBC 5.1 RBC 3.33 L Hgb 10.9 L Hct 34.4 L MCV 103.3 H MCH 32.7 H MCHC 31.7 L RDW Std Deviation 62.4 H RDW Coeff of Kalp[place] 16.4 H Plt Count 140 L MPV 12.5 H Immature Gran % (Auto) 0.400 Neut % (Auto) 74.5 H Lymph % (Auto) 16.0 L [place] % (Auto) 6.1 Eos % (Auto) 1.6 Baso % (Auto) 1.4 H Absolute Neuts (auto) 3.8 Absolute Lymphs (auto) 0.81 L Nucleated RBC % 0 PT 16.5 H INR 1.3 Sodium 140 Potassium 3.8 Chloride 108 Carbon Dioxide 21.6 Anion Gap 10 BUN 9 Creatinine 1.05 Estim Creat Clear Calc 73.87 Est GFR (MDRD) Non-Af 80 BUN/Creatinine Ratio 8.8 L Glucose 279 H Calcium 8.7 Total Bilirubin 0.42 Direct Bilirubin 0.21 AST 20 ALT 12 Alkaline Phosphatase 111 Total Protein 6.1 Albumin 3.2 L Globulin 2.9 Radiography Diagnostic Testing: Clinical Impression(s) from Imaging Studies Chest X-Ray 10/06/24 11:50 IMPRESSION: Moderate right pleural effusion with basilar compressive atelectasis. Small left pleural effusion with left basilar atelectasis. Vascular congestion and mild CHF. Reading Location: [id number] <Dr. Valeriy Flores, - Last Filed: 10/06/24 15:15> [facility] History & Record Review Additional record(s) reviewed:: Prior inpatient record, Prior outpatient record, Prior ED visit and Prior labs Lab Data Labs: Laboratory Results - last 24 hr 10/06/24 11:57 WBC 5.1 RBC 3.33 L Hgb 10.9 L Hct 34.4 L MCV 103.3 H MCH 32.7 H MCHC 31.7 L RDW Std Deviation 62.4 H RDW Coeff of Kalpana 16.4 H Plt Count 140 L MPV 12.5 H Immature Gran % (Auto) 0.400 Neut % (Auto) 74.5 H Lymph % (Auto) 16.0 L [place] % (Auto) 6.1 Eos % (Auto) 1.6 Baso % (Auto) 1.4 H Absolute Neuts (auto) 3.8 Absolute Lymphs (auto) 0.81 L Nucleated RBC % 0 PT 16.5 H INR 1.3 Sodium 140 Potassium 3.8 Chloride 108 Carbon Dioxide 21.6 Anion Gap 10 BUN 9 Creatinine 1.05 Estim Creat Clear Calc 73.87 Est GFR (MDRD) Non-Af 80 BUN/Creatinine Ratio 8.8 L Glucose 279 H Calcium 8.7 Total Bilirubin 0.42 Direct Bilirubin 0.21 AST 20 ALT 12 Alkaline Phosphatase 111 Total Protein 6.1 Albumin 3.2 L Globulin 2.9 Radiography Diagnostic Testing: Clinical Impression(s) from Imaging Studies Chest X-Ray 10/06/24 11:50 IMPRESSION: Moderate right pleural effusion with basilar compressive atelectasis. Small left pleural effusion with left basilar atelectasis. Vascular congestion and mild CHF. Reading Location: [facility] EKG Initial EKG: Attestation: I personally reviewed and interpreted this EKG as follows: Interpretation: Paced (Atrial sensed, ventricular paced rhythm with occasional PVCs with a rate of 96) and RBBB Comments: EKG was obtained. On my independent rotation, showed atrial sensed ventricular paced rhythm with occasional PVCs. LA interval was normal at 164 ms. QRS interval was slightly prolonged at 126 ms. QTc interval was slightly prolonged at 525 ms. [place] was -6. There are no acute ST or T wave changes noted. There is a right bundle branch block pattern noted. Prior EKG tracings: available for review Prior: Unchanged (08/29/2024) Treatment and Re-Evaluation :: I have personally performed a face to face assessment of the patient and have reviewed the [facility] Note. I performed a substantive portion of the visit including all aspects of the following. My claudio findings include: History: Patient presents with shortness of breath that has been getting worse over the past week. Patient states it is gradually getting worse. Patient describes his breathing as shallow and short. Patient states he is unable to take a deep breath. Patient denies any cough. Patient denies any chest pain. Patient admits to some right upper quadrant abdominal pain. Patient denies any nausea or vomiting. Exam: Vital signs are stable except for slight tachycardia of 104. Patient is afebrile. Patient is in no acute distress. Oral mucosa is pink and somewhat dry. Neck is supple. Trachea is midline. There is no JVD. Heart was regular rate and rhythm. Lungs are diminished bilaterally. There is adequate respiratory effort. Abdomen is soft. Bowel sounds are normal. There is right upper quadrant tenderness. There is no rebound or guarding noted. There is no evidence of ascites noted. There is no fluid wave. Cranial nerves II through XII are intact. There are no focal motor or sensory deficits noted. Medical Decision Making: Differential diagnosis includes pleural effusion, pneumonia, bronchitis, ascites, cirrhosis, congestive heart failure, electrolyte abnormality, and anxiety. EKG will be obtained to assess for cardiac dysrhythmia and cardiac ischemia. Chest x-ray will be obtained to assess for pneumonia, pleural effusion, and congestive heart failure. CBC will be obtained to assess for leukocytosis and anemia. Basic metabolic profile will be obtained to assess for electrolyte abnormality and renal function. Liver profile will be obtained to assess for hepatic function. PT with INR will be obtained to assess for coagulopathy. EKG was obtained. On my independent interpretation, it showed a atrial sensed, ventricular paced rhythm with a rate of 96. There is a right bundle branch block pattern. There are occasional PVCs. This was unchanged compared to previous EKG. CBC was reviewed. There is a mild anemia with a hemoglobin of 10.9 and hematocrit of 34.4. Platelets were slightly low at 140. Comprehensive metabolic profile was reviewed and was essentially within normal limits with the exception of an elevated glucose of 279. PT with INR was reviewed. Pro time is 16.5 and INR is 1.3. PA and lateral chest x-ray was obtained. There are 2 views. On my independent interpretation, lung smith show increased vascular congestion. There is bilateral pleural effusions, worse on the right. There is mild cardiomegaly. Bony thorax is normal. There is no acute process noted. Radiologist also interpreted the x-ray and agrees. Patient was ambulated here in the emergency department and maintain oxygen saturation 93% on 2 L nasal cannula which she has normally at home. Patient was given a dose of Lasix here. Patient was given morphine with Zofran.. Patient was feeling better on reevaluation. Patient was instructed to notify the office his primary care physician and seismograph operator scheduled. Patient understood and was agreeable with the plan. All questions were answered. Discharge Plan Triage Chief Complaint: Weakness ED Midlevel Provider: Rafaela Welch ED Provider: Valeriy Flores Dx/Rx/DC Orders Clinical Impression: Pleural effusion due to congestive heart failure, Cirrhosis, Dyspnea Instructions: ED Heart Failure, Congestive (CHF), ED Pleural Effusion Prescriptions: No Action atorvastatin 10 mg tablet 10 mg PO DAILY dapagliflozin propanediol [Farxiga] 10 mg Tablet 10 mg PO DAILY multivitamin Tablet 1 tab PO DAILY gabapentin 300 mg Capsule 300 mg PO DAILY metformin 500 mg tablet extended release 24 hr 500 mg PO DAILY Patient Comments: PT STATES THEY TAKE THIS ONCE DAILY. pantoprazole 40 mg tablet,delayed release (DR/EC) 40 mg PO BID Qty: 60 0RF thiamine HCl (vitamin B1) [Vitamin B-1] 100 mg Tablet 100 mg PO DAILYCM Qty: 0 0RF folic acid 1 mg Tablet 1 mg PO DAILY@0800 Qty: 0 0RF ferrous sulfate [FeroSul] 325 mg (65 mg iron) tablet 325 mg PO DAILY metoprolol succinate 25 mg Tablet Extended Release 24 Hr 12.5 mg PO DAILY 30 Days Qty: 15 2RF spironolactone 25 mg Tablet 25 mg PO DAILY 30 Days Qty: 30 2RF L.acidoph,saliva-B.bif-S.therm 175 mg Capsule 1 cap PO BID Entresto 24-26 mg tablet 1 tab PO BID Qty: 60 0RF furosemide 20 mg Tablet 40 mg PO DAILY 30 Days Qty: 60 2RF Creon 24,000-76,000 -120,000 unit Capsule,Delayed Release(Dr/Ec) 1 cap PO BIDCM Patient Comments: med ordered 3x/day. pt states he takes it 'maybe 2x/day' Primary Care Provider: Sigrid Call Referrals: Sirgid Call, DO [Primary Care Provider] - Activity Restrictions/Additional Instructions: You have pleural effusions or fluid buildup in your lungs. You were given a dose of IV Lasix to help rid of the fluid and this will cause you to urinate a lot. Keep taking all your home prescriptions and follow-up with your doctors next week. Or you 2 L of oxygen at all times. If symptoms worsen come back to the ER. Print Language: Occitan Disposition Disposition: Home, Self Care
[2024-10-06 12:06] LABS: Hematocrit 34.4 % (40-54); Hemoglobin 10.9 g/dL (13.0-16.5); Immature Granulocytes Count 0.020 X10^3/uL (0.0-0.0); Mean Corp Hgb Conc 31.7 g/dL (32-36); Mean Corpuscular Volume 103.3 fL (80-94); Mean Platelet Vol. 12.5 fl (6.2-12.0); NRBC Flagged by Analyzer 0 % (0-5); Platelet Count 140 K/mm3 (150-450); RBC Distribution Width CV 16.4 % (11.6-14.6); RBC Distribution Width SD 62.4 fl (35.1-43.9); Red Blood Count 3.33 M/mm3 (4.6-6.2); White Blood Count 5.1 K/mm3 (4.4-11.0)
[2024-10-06 12:25] LABS: AST(SGOT) 20 U/L (<=37); Alanine Aminotransfer ALT/SGPT 12 U/L (<=46); Albumin, Serum 3.2 g/dL (3.4-4.8); Alkaline Phosphatase 111 U/L (40-129); Anion Gap 10 (5-15); BUN 9 mg/dL (4-19); BUN/Creat Ratio 8.8 RATIO (10-20); Bilirubin, Direct 0.21 mg/dL (0.00-0.30); Calcium,Total 8.7 mg/dL (7.6-11.0); Carbon Dioxide 21.6 mmol/L (21.0-32.0); Chloride 108 mmol/L (98-108); Estimated Creatinine Clearance 73.87 ml/min (50-250); Globulin 2.9 g/dL (2.2-4.2); Glucose 279 mg/dL (70-99); Potassium 3.8 mmol/L (3.3-5.1)
[2024-10-06 12:27] LABS: Prothrombin Time (Protime)PT. 16.5 SECONDS (11.7-14.9)
[2024-10-06 12:43] VITALS: BP 138/106; PULSE 100; RESP 24; TEMP 36.5; O2SAT 94
[2024-10-06 14:28] VITALS: O2SAT 92
[2024-10-06 14:29] VITALS: BP 141/119; PULSE 102; RESP 22; O2SAT 100
[2024-10-06 15:09] VITALS: BP 149/111; PULSE 103; RESP 20; TEMP 35.9; O2SAT 97
--- NOTE | 2024-10-06 15:11 | ED.RN ---
refuses to wear oxygen for transport. says that he does not need it and he will put it on when he gets home. educated on importance of wearing 2L O2 continuously.
== END 2024-10-06 15:19 | disposition home or self-care (01) ==
PROVIDERS: Physician Assistant; Emergency Provider Emergency Medicine; PCP Family Medicine; Visit Provider Emergency Medicine
DX: R53.1 Weakness (principal); K74.60 Unspecified cirrhosis of liver; I11.0 Hypertensive heart disease with heart failure; I50.9 Heart failure, unspecified; E11.9 Type 2 diabetes mellitus without complications; F17.200 Nicotine dependence, unspecified, uncomplicated; J90 Pleural effusion, not elsewhere classified; E78.00 Pure hypercholesterolemia, unspecified; Z95.3 Presence of xenogenic heart valve; I25.2 Old myocardial infarction; Z79.899 Other long term (current) drug therapy; Z79.84 Long term (current) use of oral hypoglycemic drugs; Z99.81 Dependence on supplemental oxygen; R06.00 Dyspnea, unspecified
CPT/HCPCS: 71046; 80048; 80076; 85025; 85610; 93005; 96374; 96375; 99285; A4216; J1938; J2405

== ENCOUNTER 2024-10-12 09:47 | Inpatient (IN) | payer MEDICARE, MEDICAID, SELFPAY ==
[2024-10-12] VITALS (11 sets, daily range): BP systolic 117–146; BP diastolic 94–107; PULSE 81–115; RESP 18–32; TEMP 36.2–37.2; O2SAT 83–98; BMI 21.8; BMI 20.9
--- NOTE | 2024-10-12 10:04 | EKG12_ITS ---
Test Reason : SOB Blood Pressure : */* mmHG Vent. Rate : 96 BPM Atrial Rate : 96 BPM P-R Int : 158 ms QRS Dur : 128 ms QT Int : 398 ms P-R-T Axes : -27 -5 91 degrees QTcB Int : 502 ms Normal sinus rhythm Right bundle branch block Abnormal ECG Confirmed by STEFFANIE FRANCISCO, SHAYLEE ([id number]), film editor CARLOS ROBLES ([id number]) on 10/16/2024 9:02:11 AM Referred By: Confirmed By: SHAYLEE VALIENTE MD
--- NOTE | 2024-10-12 10:05 | EX.ED.DYSGE1 ---
HPI History of Present Illness Chief Complaint: Shortness of Breath Narrative Narrative: Patient is a 64-year-old male with past medical history of chronic pancreatitis, alcohol abuse, seizures, diabetes, AAA, pacemaker, hypercholesteremia, right bundle branch block, hypertension, cirrhosis, CHF who presented to the emergency department chief complaint shortness of breath. Patient states that for the last few days he has noted increased welling in his lower extremities as well as worsening shortness of breath on exertion. He states that he has been taking his medications as prescribed not missing doses. He states that he has had 3 paracentesis and feels like he needs another 1. He states that he does not have another one scheduled at this point in time. Patient denies any blood thinning medications. Patient denies any recent travels denies any history of blood clots. [facility] Medical History Chronic pancreatitis Chronic pancreatitis due to chronic alcoholism Malnutrition Pancytopenia Medically noncompliant Thrombocytopenia Macrocytosis associated with alcohol Ascites due to alcoholic cirrhosis Chronic diarrhea Chronic alcohol abuse Abdominal ascites MALIK (acute kidney injury) Seizures Alcoholic hepatitis Chronic pancreatitis Gastric wall thickening Alcohol dependence Anxiety Diabetes Pancreatitis Myocardial infarct Pacemaker AAA (abdominal aortic aneurysm) Admitted to alcohol detoxification center Alcohol abuse Hx of hypercholesterolemia History of diabetes mellitus Alcohol dependence Substance abuse Smoker Alcoholism Right bundle branch block (RBBB) Non-sustained ventricular tachycardia Thoracic aortic aneurysm SVT (supraventricular tachycardia) Ascending aortic dissection (~2005) Pure hypercholesterolemia Adrenal nodule Hiatal hernia Left carotid bruit Cardiac pacemaker in situ (~06/2016) Essential hypertension Pacemaker Sick sinus syndrome Tobacco use HTN (hypertension) Diabetes mellitus, type II Home Medications ?Medication ?Instructions ?Recorded ?Last Taken ?Type atorvastatin 10 mg tablet 10 mg PO DAILY CHOLESTEROL 10/17/20 07/31/24 History dapagliflozin propanediol 10 mg 10 mg PO DAILY DIABETES 09/30/21 07/31/24 History tablet (Farxiga) multivitamin 1 tab PO DAILY SUPPLEMENT 11/11/21 07/31/24 History gabapentin 300 mg capsule 300 mg PO DAILY NEUROPATHY 11/14/22 07/31/24 History metformin 500 mg tablet,extended 500 mg PO DAILY DIABETES 11/15/22 07/31/24 History release 24 hr folic acid 1 mg tablet 1 mg PO DAILY@0800 supplement #0 05/20/23 07/31/24 Rx tabs thiamine HCl (vitamin B1) 100 mg 100 mg PO DAILYCM vitamin #0 tabs 05/20/23 07/31/24 Rx tablet (Vitamin B-1) pantoprazole 40 mg tablet,delayed 40 mg PO BID reflux #60 tabs 06/27/23 07/31/24 Rx release ferrous sulfate 325 mg (65 mg 325 mg PO DAILY supplement 06/30/24 07/31/24 History iron) tablet (FeroSul) spironolactone 25 mg tablet 25 mg PO DAILY diuretic 30 days 07/06/24 07/31/24 Rx Held on 09/04/24. #30 tabs Instructions: Resume on 09/14/24. L.acidophil,salivari-Bifido 1 cap PO BID Probiotic 08/01/24 07/31/24 History bifidum-Strep thermoph 175 mg capsule furosemide 20 mg tablet 40 mg (2 x 20 mg) PO DAILY 30 days 08/03/24 Unknown Rx #60 tabs sacubitril 24 mg-valsartan 26 mg 1 tab PO BID #60 tabs 08/03/24 Unknown Rx tablet (Entresto) afiykk-xbiktxyd-kfrmgby 1 cap PO BIDCM 08/29/24 Unknown History 24,000-76,000-120,000 unit capsule,delayed rel (Creon) metoprolol succinate 25 mg 25 mg PO DAILY blood pressure #30 10/12/24 Unknown Rx tablet,extended release 24 hr tabs Allergy/AdvReac Type Severity Reaction Status Date / Time No Known Allergies Allergy Verified 10/10/24 14:24 Family History Father CAD (coronary artery disease) Mother Dementia Surgical History History of aortic aneurysm repair (~2016) H/O cardiac catheterization History of cataract surgery History of hernia repair History of aortic valve replacement with bioprosthetic valve (~2016) H/O aortic valve replacement Social History household members: family housing: house Smoking Status: Light Smoker (<10/day) alcohol intake: current alcohol intake frequency: 0-2 drinks per day details: Reports currently ~ 2 tall boys daily. substance use type: former substance user caffeine: Yes Type: coffee Number of servings: 3 ROS ROS ED ROS Narrative Constitutional: Denies fevers, chills, headaches Cardiovascular: Denies chest pain or palpitations Respiratory: When the shortness of breath with exertion as noted above denies chest pain Abdomen: Denies abdominal pain nausea vomit diarrhea : Denies any urinary symptoms Neurological: Denies any numbness, weakness, tingling Musculoskeletal: Denies back pain Skin: Denies any rashes or lesions EXAM Physical Exam Narrative Exam Narrative: General: Patient was lying in bed rest comfortably did not appear in any acute distress Head: Atraumatic, normocephalic Eyes: PERRL bilaterally, EOMI bilateral, no conjunctival injection noted Neck: Soft, supple, trachea midline Cardiovascular: Regular rate and rhythm no murmurs gallops rubs noted Respiratory: Clear to auscultation bilaterally Abdomen: Soft, nondistended, nontender to palpation Extremities: +5/5 strength noted in the bilateral lower extremities, equal pulses +2/4 in the bilateral extremities, 1+ pitting edema in the bilateral lower extremities Neurological: Patient commands that he was at [facility] years 2024 Skin: Warm, dry, intact no rashes or lesions noted Const Vital Signs: 10/12/24 09:49 10/12/24 09:56 10/12/24 11:17 Temperature 97.2 F L Temperature Source Temporal Pulse Rate 100 Respiratory Rate 29 H Respiratory Effort Normal Non-Labored Respiratory Depth Normal Respiratory Pattern Normal Blood Pressure 142/102 H Blood Pressure Mean 115 Pulse Ox 93 Oxygen Delivery Method Nasal Cannula Room Air Oxygen Flow Rate (L/min) 2 10/12/24 11:25 10/12/24 13:00 Temperature Temperature Source Pulse Rate 102 H 81 Respiratory Rate 32 H 18 Respiratory Effort Respiratory Depth Respiratory Pattern Blood Pressure 122/94 H 128/96 H Blood Pressure Mean 103 106 Pulse Ox 95 96 Oxygen Delivery Method Nasal Cannula Oxygen Flow Rate (L/min) 2 MDM MDM MDM Narrative Medical decision making narrative: Patient is a 64-year-old male who presents to the emergency department chief complaint dyspnea on exertion. On the differential diagnosis includes but not limited to CHF exacerbation, pneumonia, pneumothorax, ACS, ascites secondary to his cirrhosis/heart failure. Once workup is obtained and reviewed he will be reevaluated. Patient will not be given IV fluids as there is concern for hypervolemic state at this point in time. Patient is on 2 L nasal cannula which is at his baseline. Patient's echocardiogram from 07/03/2024 reviewed which showed ejection fraction of 35 to 40%. Patient's CBC reviewed showed a white blood count 4.5, hemoglobin 11, platelet count was noted to be 152. Patient INR 1.4, PT is 17.4. Patient sodium 140, potassium normal at 3.7, creatinine is 1.06. Patient's troponin was 105 with a delta troponin of 91 and a 4-hour troponin of 83 this is likely secondary to his hypervolemic state he does not have any chest pain. Patient's EKG was reviewed as well which showed sinus rhythm with a rate of 96 bpm with evidence of right bundle branch block. Patient's proBNP was elevated 50,353. Patient chest x-ray reviewed by myself by radiology showed bilateral pleural effusions right greater than the left as described with basilar compressive atelectasis. Patient CT abdomen pelvis with IV contrast reviewed and showed bilateral pleural effusions right greater than left with the dependent basilar atelectasis diffuse pancreatic calcification in keeping with chronic pancreatitis with pancreatic atrophy noted. Fatty infiltration of the liver. Stable aneurysmal dilation of the ascending thoracic aorta. Small umbilical hernia containing fat. Patient given 40 mg IV Lasix. Patient ambulated here he felt very short of breath. Reach out to hospitalist Dr. Willoughby who accept the patient for admission for thoracentesis, CHF exacerbation, dyspnea on exertion. Patient was notified is agreeable spinal course concerns answered. Lab Data Labs: Laboratory Results - last 24 hr 10/12/24 10/12/24 10/12/24 10:12 12:08 14:18 WBC 4.5 RBC 3.43 L Hgb 11.0 L Hct 34.4 L MCV 100.3 H MCH 32.1 H MCHC 32.0 RDW Std Deviation 62.1 H RDW Coeff of Kalpana 16.7 H Plt Count 152 MPV 12.0 Immature Gran % (Auto) 0.400 Neut % (Auto) 65.8 Lymph % (Auto) 20.8 [place] % (Auto) 9.5 Eos % (Auto) 1.5 Baso % (Auto) 2.0 H Absolute Neuts (auto) 3.0 Absolute Lymphs (auto) 0.94 Nucleated RBC % 0 PT 17.4 H INR 1.4 APTT 29.0 Sodium 140 Potassium 3.7 Chloride 106 Carbon Dioxide 22.2 Anion Gap 11 BUN 11 Creatinine 1.06 Estim Creat Clear Calc 70.52 Est GFR (MDRD) Non-Af 79 BUN/Creatinine Ratio 10.7 Glucose 241 H Calcium 8.9 Troponin T High Sens 105 H* D Troponin T Hi Sens 2 Hr 91 H* Troponin T Hi Sens 4Hr 83 H* [place] [address] H Radiography Diagnostic Testing: Clinical Impression(s) from Imaging Studies Chest X-Ray 10/12/24 10:15 IMPRESSION: Bilateral pleural effusions right greater than left as described with bibasilar compressive atelectasis. Reading Location: [id number] Abdomen/Pelvis CT 10/12/24 13:10 IMPRESSION: Bilateral pleural effusions right greater than left with dependent bibasilar atelectasis. Diffuse pancreatic calcification in keeping with chronic pancreatitis. Pancreatic atrophy. Fatty infiltration of the liver. Stable aneurysmal dilatation of the ascending thoracic aorta. Small umbilical hernia containing fat. Reading Location: [id number] Discharge Plan Triage Chief Complaint: Shortness of Breath ED Provider: Perez Ribeiro Dx/Rx/DC Orders Clinical Impression: Intractable abdominal pain, Chronic pancreatitis, Cirrhosis, HTN (hypertension), CHF exacerbation, Dyspnea on exertion, Bilateral pleural effusion Prescriptions: No Action atorvastatin 10 mg tablet 10 mg PO DAILY dapagliflozin propanediol [Farxiga] 10 mg Tablet 10 mg PO DAILY multivitamin Tablet 1 tab PO DAILY gabapentin 300 mg Capsule 300 mg PO DAILY metformin 500 mg tablet extended release 24 hr 500 mg PO DAILY Patient Comments: PT STATES THEY TAKE THIS ONCE DAILY. pantoprazole 40 mg tablet,delayed release (DR/EC) 40 mg PO BID Qty: 60 0RF thiamine HCl (vitamin B1) [Vitamin B-1] 100 mg Tablet 100 mg PO DAILYCM Qty: 0 0RF folic acid 1 mg Tablet 1 mg PO DAILY@0800 Qty: 0 0RF ferrous sulfate [FeroSul] 325 mg (65 mg iron) tablet 325 mg PO DAILY spironolactone 25 mg Tablet 25 mg PO DAILY 30 Days Qty: 30 2RF L.acidoph,saliva-B.bif-S.therm 175 mg Capsule 1 cap PO BID sacubitril-valsartan [Entresto] 24-26 mg tablet 1 tab PO BID Qty: 60 0RF furosemide 20 mg Tablet 40 mg PO DAILY 30 Days Qty: 60 2RF Creon 24,000-76,000 -120,000 unit Capsule,Delayed Release(Dr/Ec) 1 cap PO BIDCM Patient Comments: med ordered 3x/day. pt states he takes it 'maybe 2x/day' metoprolol succinate 25 mg tablet extended release 24 hr 25 mg PO DAILY Qty: 30 11RF Primary Care Provider: Sigrid Call Referrals: Sigrid Call, DO [Primary Care Provider] - Print Language: Malay Disposition Disposition: Acute Care Hospital [facility]
--- NOTE | 2024-10-12 10:15 | RAD_ITS ---
PROCEDURE: CHEST PA AND LATERAL 10/12/2024 REASON FOR EXAM: CHEST PAIN TECHNIQUE: Procedure Code: RADCXR Modality: DX Procedure: CHEST PA AND LATERAL COMPARISON: Prior study dated October 06, 2024. FINDINGS: Hardware: EKG electrodes are seen. Left-sided dual-chamber pacemaker is seen. Surgical clips are seen in the right axilla. Heart: Prior midline sternotomy. Mediastinum: Calcification of the thoracic aorta. Lungs: Moderate right pleural effusion with right basilar compressive atelectasis. Small left pleural effusion with left basilar atelectasis. Bones: Demineralization of the visualized thoracic vertebrae. RAD/Chest PA and Lateral IMPRESSION: Bilateral pleural effusions right greater than left as described with bibasilar compressive atelectasis. [id number]
[2024-10-12 10:26] LABS: Hematocrit 34.4 % (40-54); Hemoglobin 11.0 g/dL (13.0-16.5); Immature Granulocytes Count 0.020 X10^3/uL (0.0-0.0); Mean Corp Hgb Conc 32.0 g/dL (32-36); Mean Corpuscular Volume 100.3 fL (80-94); Mean Platelet Vol. 12.0 fl (6.2-12.0); NRBC Flagged by Analyzer 0 % (0-5); Platelet Count 152 K/mm3 (150-450); RBC Distribution Width CV 16.7 % (11.6-14.6); RBC Distribution Width SD 62.1 fl (35.1-43.9); Red Blood Count 3.43 M/mm3 (4.6-6.2); White Blood Count 4.5 K/mm3 (4.4-11.0)
[2024-10-12 10:35] LABS: Prothrombin Time (Protime)PT. 17.4 SECONDS (11.7-14.9)
[2024-10-12 10:36] LABS: Partial Thromboplast Time 29.0 Seconds (24.1-36.2)
[2024-10-12 11:26] LABS: Anion Gap 11 (5-15); BUN 11 mg/dL (4-19); BUN/Creat Ratio 10.7 RATIO (10-20); Calcium,Total 8.9 mg/dL (7.6-11.0); Carbon Dioxide 22.2 mmol/L (21.0-32.0); Chloride 106 mmol/L (98-108); Estimated Creatinine Clearance 70.52 ml/min (50-250); Glucose 241 mg/dL (70-99); Potassium 3.7 mmol/L (3.3-5.1)
[2024-10-12 11:41] LABS: Pro- Brain NATRIURETIC PEPTIDE 50353 pg/mL (<=900); Troponin T High Sensitivity 105 ng/L (<=22)
--- NOTE | 2024-10-12 11:42 | ED.RN ---
Critical Troponin of 105. Physician notified.
--- NOTE | 2024-10-12 13:10 | CT_ITS ---
PROCEDURE: ABDOMEN/PELVIS W IV CONT ONLY 10/12/2024 REASON FOR EXAM: EPIGASTRIC PAIN History of pancreatitis and cirrhosis. TECHNIQUE: Procedure Code: [id number] Modality: CT Procedure: ABDOMEN/PELVIS W IV CONT ONLY Coronal and Sagittal reconstruction series were provided. CONTRAST: Isovue-300 VOLUME: 100 mL One or more dose reduction techniques were used (e.g., Automated exposure control, adjustment of the mA and/or kV according to patient size, use of iterative reconstruction technique. RADIATION DOSE SUMMARY: CTDlvol: 18.7 mGy DLP: 653.58 mGycm COMPARISON: Prior study dated August 01, 2024. FINDINGS: Lung bases: Bilateral pleural effusions right greater than left with dependent bibasilar atelectasis. Atherosclerotic calcification of the aortic arch. Aneurysmal dilatation of the ascending thoracic aorta with a transverse dimension of 4 cm. This is unchanged. Prior aortic valve replacement. Liver: Diffuse fatty infiltration. Gallbladder: No evidence of gallstones. Spleen: Normal size. Pancreas: Diffuse fatty atrophy. Diffuse pancreatic calcification in keeping with a chronic pancreatitis. Adrenals: Unremarkable Kidneys: Normal renal sizes. No hydronephrosis. Bladder: Mildly distended urinary bladder. Prostatic calcifications. Bowel: Colonic diverticulosis without diverticulitis. Appendix: The appendix is not identified. There is no inflammatory process identified in the right lower quadrant to suggest appendicitis. Lymph nodes: Unremarkable. Vasculature: Extensive atherosclerotic changes of the abdominal aorta and the major visceral branches. Peritoneum / Retroperitoneum: Prior right inguinal hernia repair. Small umbilical hernia containing fat. Bones: Degenerative changes of the spine. CT/Abdomen/Pelvis W IV Cont ONLY IMPRESSION: Bilateral pleural effusions right greater than left with dependent bibasilar at electasis. Diffuse pancreatic calcification in keeping with chronic pancreatitis. Pancrea tic atrophy. Fatty infiltration of the liver. Stable aneurysmal dilatation of the ascending thoracic aorta. Small umbilical hernia containing fat. Reading Location: [id number]
[2024-10-12 13:18] LABS: Troponin T High Sens 2 HR 91 ng/L (<=22)
[2024-10-12 14:53] LABS: Troponin T High Sens 4 HR 83 ng/L (<=22)
--- NOTE | 2024-10-12 16:09 | PCM.HP.STD ---
HPI - General General Date of Admission: 10/12/24 Date of Service: 10/12/24 Chief Complaint: Shortness of breath HPI Narrative ANALILIA TALLEY, is a 64-year-old male with a history of alcohol abuse, chronic pancreatitis, AAA, sick sinus syndrome status post PPM, GERD, CHF, diabetes, chronic hypoxic respiratory failure, history of para and thoracentesis who presented to [facility] ED 11/02 with complaints of shortness of breath and increased swelling in lower extremities that is worsened over the past several days and has not missed any doses. In the ED temp 97.2, heart rate 100 with blood pressure 142/102, respiratory rate 29 and pulse ox 93% on 2 L nasal cannula. CBC with a white count of 4.5 and a hemoglobin of 11, BMP only notable for glucose of 241. BNP found to be 50,000 and troponin of 105 with a repeat of 91. Chest x-ray with bilateral pleural effusions right greater than left with bibasilar compressive atelectasis. Patient also had a CT of the abdomen and pelvis which showed bilateral pleural effusions right greater than left with dependent bibasilar atelectasis, diffuse pancreatic calcifications consistent with chronic pancreatitis and no other acute process. Patient still short of breath though has been able to be maintained on his home oxygen, hospitalist contacted for admission for heart failure exacerbation. Patient evaluated bedside. He reports the increased shortness of breath and lower extremity swelling over several days with last night having significant shortness of breath. Does report previous thoracentesis and has had several reports he needs them every couple of months. Has some epigastric pain that he reports goes along with his chronic pancreatitis. Denies any cough or shortness of breath, no bowel or bladder changes [facility] Medical History Chronic pancreatitis Chronic pancreatitis due to chronic alcoholism Malnutrition Pancytopenia Medically noncompliant Thrombocytopenia Macrocytosis associated with alcohol Ascites due to alcoholic cirrhosis Chronic diarrhea Chronic alcohol abuse Abdominal ascites MALIK (acute kidney injury) Seizures Alcoholic hepatitis Chronic pancreatitis Gastric wall thickening Alcohol dependence Anxiety Diabetes Pancreatitis Myocardial infarct Pacemaker AAA (abdominal aortic aneurysm) Admitted to alcohol detoxification center Alcohol abuse Hx of hypercholesterolemia History of diabetes mellitus Alcohol dependence Substance abuse Smoker Alcoholism Right bundle branch block (RBBB) Non-sustained ventricular tachycardia Thoracic aortic aneurysm SVT (supraventricular tachycardia) Ascending aortic dissection (~2005) Pure hypercholesterolemia Adrenal nodule Hiatal hernia Left carotid bruit Cardiac pacemaker in situ (~06/2016) Essential hypertension Pacemaker Sick sinus syndrome Tobacco use HTN (hypertension) Diabetes mellitus, type II Home Medications ?Medication ?Instructions ?Recorded ?Last Taken ?Type atorvastatin 10 mg tablet 10 mg PO DAILY CHOLESTEROL 10/17/20 07/31/24 History dapagliflozin propanediol 10 mg 10 mg PO DAILY DIABETES 09/30/21 07/31/24 History tablet (Farxiga) multivitamin 1 tab PO DAILY SUPPLEMENT 11/11/21 07/31/24 History gabapentin 300 mg capsule 300 mg PO DAILY NEUROPATHY 11/14/22 07/31/24 History metformin 500 mg tablet,extended 500 mg PO DAILY DIABETES 11/15/22 07/31/24 History release 24 hr folic acid 1 mg tablet 1 mg PO DAILY@0800 supplement #0 05/20/23 07/31/24 Rx tabs thiamine HCl (vitamin B1) 100 mg 100 mg PO DAILYCM vitamin #0 tabs 05/20/23 07/31/24 Rx tablet (Vitamin B-1) pantoprazole 40 mg tablet,delayed 40 mg PO BID reflux #60 tabs 06/27/23 07/31/24 Rx release ferrous sulfate 325 mg (65 mg 325 mg PO DAILY supplement 06/30/24 07/31/24 History iron) tablet (FeroSul) spironolactone 25 mg tablet 25 mg PO DAILY diuretic 30 days 07/06/24 07/31/24 Rx Held on 09/04/24. #30 tabs Instructions: Resume on 09/14/24. L.acidophil,salivari-Bifido 1 cap PO BID Probiotic 08/01/24 07/31/24 History bifidum-Strep thermoph 175 mg capsule furosemide 20 mg tablet 40 mg (2 x 20 mg) PO DAILY 30 days 08/03/24 Unknown Rx #60 tabs sacubitril 24 mg-valsartan 26 mg 1 tab PO BID #60 tabs 08/03/24 Unknown Rx tablet (Entresto) dxjqvf-ixopdjjt-axlzjsl 1 cap PO BIDCM 08/29/24 Unknown History 24,000-76,000-120,000 unit capsule,delayed rel (Creon) metoprolol succinate 25 mg 25 mg PO DAILY blood pressure #30 10/12/24 Unknown Rx tablet,extended release 24 hr tabs Allergy/AdvReac Type Severity Reaction Status Date / Time No Known Allergies Allergy Verified 10/10/24 14:24 Family History Father CAD (coronary artery disease) Mother Dementia Surgical History History of aortic aneurysm repair (~2016) H/O cardiac catheterization History of cataract surgery History of hernia repair History of aortic valve replacement with bioprosthetic valve (~2016) H/O aortic valve replacement Social History household members: family housing: house Smoking Status: Light Smoker (<10/day) alcohol intake: current alcohol intake frequency: 0-2 drinks per day details: Reports currently ~ 2 tall boys daily. substance use type: former substance user caffeine: Yes Type: coffee Number of servings: 3 ROS ROS Narrative General: Denies fever/chills HENT: Has a little bit of a headache, denies stuffy nose, denies sore throat EYES: Denies changes in vision Resp: Denies cough, worsening shortness of breath Cardiac: Denies chest pain GI: Some epigastric pain, denies changes in bowel, denies nausea/vomiting : Denies changes in urination Extremity: Increased swelling in lower extremities MSK: Denies weakness Neuro: Denies any numbness/tingling Heme: Easy bruising Skin: Denies rashes Psychiatric: No complaints voiced Vital Signs Vital Signs Vital Signs: 10/12/24 09:49 10/12/24 09:56 10/12/24 11:17 Temperature 97.2 F L Temperature Source Temporal Pulse Rate 100 Respiratory Rate 29 H Respiratory Effort Normal Non-Labored Respiratory Depth Normal Respiratory Pattern Normal Blood Pressure 142/102 H Blood Pressure Mean 115 Pulse Ox 93 Oxygen Delivery Method Nasal Cannula Room Air Oxygen Flow Rate (L/min) 2 10/12/24 11:25 10/12/24 13:00 10/12/24 15:50 Temperature Temperature Source Pulse Rate 102 H 81 105 H Respiratory Rate 32 H 18 19 H Respiratory Effort Respiratory Depth Respiratory Pattern Blood Pressure 122/94 H 128/96 H 124/94 H Blood Pressure Mean 103 106 104 Pulse Ox 95 96 83 Oxygen Delivery Method Nasal Cannula Room Air Oxygen Flow Rate (L/min) 2 10/12/24 15:50 10/12/24 15:51 10/12/24 15:51 Temperature 98.9 F 98.9 F Temperature Source Oral Pulse Rate 105 H 104 H 104 H Respiratory Rate 19 H 20 H 28 H Respiratory Effort Respiratory Depth Respiratory Pattern Blood Pressure 124/94 H 124/94 H Blood Pressure Mean 104 104 Pulse Ox 85 85 86 Oxygen Delivery Method Nasal Cannula Nasal Cannula Oxygen Flow Rate (L/min) 2 3 10/12/24 15:58 Temperature Temperature Source Pulse Rate 109 H Respiratory Rate 26 H Respiratory Effort Respiratory Depth Respiratory Pattern Blood Pressure Blood Pressure Mean Pulse Ox 97 Oxygen Delivery Method Nasal Cannula Oxygen Flow Rate (L/min) 3 Weight Weight: 69 kg Body Mass Index (BMI) 21.8 Physical Exam Narrative General: Alert, oriented HEENT: Atraumatic, normocephalic Eyes: Anicteric, normal conjunctiva, extraocular movements grossly intact Neck: Supple Respiratory: Increased respiratory effort, diminished at the bases Cardiovascular: Low-grade sinus tachycardia GI: Soft, slightly tender in the epigastric region, no rebound, guarding, rigidity, nondistended Extremities: 2-3+ bilateral lower extremity pitting edema Musculoskeletal: Moving all extremities Neuro: No overt focal neurological deficits Skin: Scattered bruising Psych: Cooperative Results Lab / Micro Data 10/12/24 10:12 10/12/24 10:12 Labs: Laboratory Results - last 24 hr 10/12/24 10:12: WBC 4.5, RBC 3.43 L, Hgb 11.0 L, Hct 34.4 L, MCV 100.3 H, MCH 32.1 H, MCHC 32.0, RDW Std Deviation 62.1 H, RDW Coeff of Kalpana 16.7 H, Plt Count 152, MPV 12.0, Immature Gran % (Auto) 0.400, Neut % (Auto) 65.8, Lymph % (Auto) 20.8, [place] % (Auto) 9.5, Eos % (Auto) 1.5, Baso % (Auto) 2.0 H, Absolute Neuts (auto) 3.0, Absolute Lymphs (auto) 0.94, Nucleated RBC % 0, PT 17.4 H, INR 1.4, APTT 29.0, Sodium 140, Potassium 3.7, Chloride 106, Carbon Dioxide 22.2, Anion Gap 11, BUN 11, Creatinine 1.06, Estim Creat Clear Calc 70.52, Est GFR (MDRD) Non-Af 79, BUN/Creatinine Ratio 10.7, Glucose 241 H, Calcium 8.9, Troponin T High Sens 105 H* D, [place] [address] H 10/12/24 12:08: Troponin T Hi Sens 2 Hr 91 H* 10/12/24 14:18: Troponin T Hi Sens 4Hr 83 H* Imaging Radiology Impression Chest X-Ray 10/12/24 10:15 IMPRESSION: Bilateral pleural effusions right greater than left as described with bibasilar compressive atelectasis. Reading Location: [id number] Abdomen/Pelvis CT 10/12/24 13:10 IMPRESSION: Bilateral pleural effusions right greater than left with dependent bibasilar atelectasis. Diffuse pancreatic calcification in keeping with chronic pancreatitis. Pancreatic atrophy. Fatty infiltration of the liver. Stable aneurysmal dilatation of the ascending thoracic aorta. Small umbilical hernia containing fat. Reading Location: [id number] Assessment & Plan Assessment/Plan (1) Acute exacerbation of chronic heart failure: PLAN: Plan #Acute exacerbation of chronic heart failure with reduced ejection fraction -Admit to telemetry -proBNP 50,353 -Continue IV Lasix - Chest x-ray with bilateral pleural effusions right greater than left with bibasilar compressive atelectasis -Last echo 07/03/2024 with an EF of 35 to 40% - No repeat echo ordered given patient has had 1 within the last 6 months -Daily weights, I's and O's -Fluid restriction, heart healthy diet # Large pleural effusions right greater than left -Patient has required thoracentesis before -Will be diuresed with IV Lasix as above -Will also order therapeutic thoracentesis for the right to assist with symptom management - Given patient has required several thoracentesis could always consider outpatient CT surgery evaluation for more definitive management # Elevated troponin -Initial troponin of 105 with a repeat of 91 - No chest pain but does have evidence of fluid overload and heart failure exacerbation -Suspect that this is secondary to heart failure exacerbation # Chronic hypoxic respiratory failure -Chronically on 2 L nasal cannula -Presently on home O2 but does have increased shortness of breath and leg swelling infusions as above # History of alcohol abuse - Patient denies any recent drinking - Continue home thiamine and folic acid # History of chronic pancreatitis -CT of the abdomen in the ED with diffuse pancreatic calcifications consistent with chronic pancreatitis with pancreatic atrophy - Continue Creon #Type 2 diabetes mellitus -Glucose checks and sliding scale insulin # History of sick sinus syndrome with permanent pacemaker -Noted # History of AAA -CT of the abdomen with stable aneurysmal dilation of ascending thoracic aorta #GERD -Continue PPI #Tobacco use -Advise cessation, patient reports he is down to 1 or 2 cigarettes a day -Nicotine replacement available if desired #DVT ppx: SCDs Diana Willoughby MD
[2024-10-12] MEDS: Creon 24,000 unit DR Capsule 1 CAP PO (18:00)
[2024-10-12] MEDS: Senna/Docusate Sodium 1 Tablet 2 TABLET PO (21:16)
[2024-10-12] MEDS: SACUBITRIL/VALSARTAN 24/26 MG TABLET 1 EACH PO (21:16)
[2024-10-12] MEDS: MELATONIN 10 MG TABLET PO (21:16)
[2024-10-12] MEDS: 0.9% Saline Lock 10 ML Syringe IV ×2 (21:17→22:52)
[2024-10-13] VITALS (26 sets, daily range): BP systolic 67–145; BP diastolic 57–85; PULSE 65–96; RESP 16–26; TEMP 36.3–36.9; O2SAT 90–100; BMI 20.1
[2024-10-13 05:48] LABS: Hematocrit 32.7 % (40-54); Hemoglobin 10.2 g/dL (13.0-16.5); Immature Granulocytes Count 0.000 X10^3/uL (0.0-0.0); Mean Corp Hgb Conc 31.2 g/dL (32-36); Mean Corpuscular Volume 101.6 fL (80-94); Mean Platelet Vol. 12.3 fl (6.2-12.0); NRBC Flagged by Analyzer 0 % (0-5); Platelet Count 140 K/mm3 (150-450); RBC Distribution Width CV 16.7 % (11.6-14.6); RBC Distribution Width SD 62.5 fl (35.1-43.9); Red Blood Count 3.22 M/mm3 (4.6-6.2); White Blood Count 4.9 K/mm3 (4.4-11.0)
[2024-10-13 05:53] LABS: Partial Thromboplast Time 30.3 Seconds (24.1-36.2); Prothrombin Time (Protime)PT. 18.2 SECONDS (11.7-14.9)
[2024-10-13 06:10] LABS: AST(SGOT) 24 U/L (<=37); Alanine Aminotransfer ALT/SGPT 12 U/L (<=46); Albumin, Serum 3.0 g/dL (3.4-4.8); Alkaline Phosphatase 104 U/L (40-129); Anion Gap 9 (5-15); BUN 13 mg/dL (4-19); BUN/Creat Ratio 11.4 RATIO (10-20); Calcium,Total 8.5 mg/dL (7.6-11.0); Carbon Dioxide 25.8 mmol/L (21.0-32.0); Chloride 104 mmol/L (98-108); Estimated Creatinine Clearance 62.07 ml/min (50-250); Globulin 2.6 g/dL (2.2-4.2); Glucose 178 mg/dL (70-99); LDH 352 U/L (87-241); Potassium 4.4 mmol/L (3.3-5.1)
--- NOTE | 2024-10-13 09:55 | PN_ITS ---
Subjective Subjective Patient seen and examined with his nurse by his bedside. He had no active complaints today. He is on 2L of oyxgen. He is awaiting his thoracentesis. Review of systems is otherwise negative. Objective Data Objective Data Vital Signs: Vital Signs Temp Pulse Resp BP Pulse Ox O2 Del Method O2 Flow Rate 97.7 F L 86 18 94/77 96 Nasal Cannula 2 10/13/24 03:47 10/13/24 03:47 10/13/24 03:47 10/13/24 03:47 10/13/24 03:47 10/13/24 03:47 10/13/24 03:47 Oxygen Flow Rate (L/min) 2 Oxygen Delivery Method Nasal Cannula Weight: 140 lb 3.424 oz Body Mass Index (BMI) 20.1 Intake & Output: Intake and Output for Last 24 Hours 10/11/24 10/12/24 10/13/24 23:59 23:59 23:59 Intake Total 660 / 660 240 / 240 Output Total 950 / 950 100 / 100 Balance -290 / -290 140 / 140 Lab / Micro Data 10/13/24 05:16 10/13/24 05:16 Labs: Laboratory Results - last 24 hr 10/12/24 10:12: WBC 4.5, RBC 3.43 L, Hgb 11.0 L, Hct 34.4 L, MCV 100.3 H, MCH 32.1 H, MCHC 32.0, RDW Std Deviation 62.1 H, RDW Coeff of Kalpana 16.7 H, Plt Count 152, MPV 12.0, Immature Gran % (Auto) 0.400, Neut % (Auto) 65.8, Lymph % (Auto) 20.8, [place] % (Auto) 9.5, Eos % (Auto) 1.5, Baso % (Auto) 2.0 H, Absolute Neuts (auto) 3.0, Absolute Lymphs (auto) 0.94, Nucleated RBC % 0, PT 17.4 H, INR 1.4, APTT 29.0, Sodium 140, Potassium 3.7, Chloride 106, Carbon Dioxide 22.2, Anion Gap 11, BUN 11, Creatinine 1.06, Estim Creat Clear Calc 70.52, Est GFR (MDRD) Non-Af 79, BUN/Creatinine Ratio 10.7, Glucose 241 H, Calcium 8.9, Troponin T High Sens 105 H* D, [place] [address] H 10/12/24 12:08: Troponin T Hi Sens 2 Hr 91 H* 10/12/24 14:18: Troponin T Hi Sens 4Hr 83 H* 10/12/24 17:15: POC Glucose 225 H 10/12/24 21:06: POC Glucose 324 H 10/13/24 05:16: WBC 4.9, RBC 3.22 L, Hgb 10.2 L, Hct 32.7 L, MCV 101.6 H, MCH 31.7, MCHC 31.2 L, RDW Std Deviation 62.5 H, RDW Coeff of Kalpana 16.7 H, Plt Count 140 L, MPV 12.3 H, Immature Gran % (Auto) 0.000, Neut % (Auto) 62.5, Lymph % (Auto) 20.9, Franklin % (Auto) 11.9 H, Eos % (Auto) 3.1, Baso % (Auto) 1.6 H, Absolute Neuts (auto) 3.1, Absolute Lymphs (auto) 1.02, Nucleated RBC % 0, PT 18.2 H, INR 1.5, APTT 30.3, Sodium 138, Potassium 4.4, Chloride 104, Carbon Dioxide 25.8, Anion Gap 9, BUN 13, Creatinine 1.11, Estim Creat Clear Calc 62.07, Est GFR (MDRD) Non-Af 75, BUN/Creatinine Ratio 11.4, Glucose 178 H, Calcium 8.5, Total Bilirubin 0.38, AST 24, ALT 12, Alkaline Phosphatase 104, L actate Dehydrogenase 352 H, Total Protein 5.7 L, Albumin 3.0 L, Globulin 2.6, Albumin/Globulin Ratio 1.2 10/13/24 05:59: POC Glucose 172 H Radiography Diagnostic Testing: Radiology Impression Chest X-Ray 10/12/24 10:15 IMPRESSION: Bilateral pleural effusions right greater than left as described with bibasilar compressive atelectasis. [id number]/Pelvis CT 10/12/24 13:10 IMPRESSION: Bilateral pleural effusions right greater than left with dependent bibasilar atelectasis. Diffuse pancreatic calcification in keeping with chronic pancreatitis. Pancreatic atrophy. Fatty infiltration of the liver. Stable aneurysmal dilatation of the ascending thoracic aorta. Small umbilical hernia containing fat. Reading Location[id number] Physical Exam Const alert, oriented x3 and no apparent distress Constitutional Narrative: frail General Appearance: cooperative HEENT normocephalic, head/scalp atraumatic, moist oral mucous membranes and oropharynx normal Eyes PERRL Neck supple and no JVD Lymph Lymphatic: no lymphedema noted Resp Resp Narrative: on 2L of oxygen. Moderately diminished breath sounds, especially on the right side in all lung smith. NO wheezes or crackles. Cardio regular rate, regular rhythm, S1 normal heart sound, S2 normal heart sound and no murmurs GI normal to inspection, nondistended, normoactive bowel sounds, soft to palpation, non-tender and non-distended Extremity normal capillary refill, no clubbing, cyanosis or edema and no calf tenderness General Extremity: no tenderness to palpation of joints or extremities Skin General Skin Exam: no breakdown Neuro no focal motor deficits and no sensory deficits noted Motor Exam: strength 5/5 throughout Psych thought process normal, cooperative and affect normal Appearance: appropriate Assessment & Plan Assessment/Plan (1) Acute exacerbation of chronic heart failure: (2) Bilateral pleural effusion: PLAN: Plan #Hypoxia due to acute exacerbation of heart failure reduced ejection fraction and bilateral pleural effusion * On 2 L of oxygen. Has known EF of 35 to 40% from echo in June 2024. proBNP on admission was over 50,000 * Been diuresed with IV Lasix 40 mg twice daily. Right-sided therapeutic thoracentesis also ordered to help with management. * Titrate oxygen to maintain saturation above 90%. * #Elevated troponin * Initial troponin was 105 and trended down. Chest pain. Likely due to demand ischemia from the acute exacerbation of heart failure. #Chronic respiratory failure: On 2 L of oxygen chronically at home. Breathing treatments bronchodilators. Is likely due to heart failure. Titrate oxygen to maintain saturation above 90%. #History of chronic pancreatitis in the setting of chronic alcohol use disorder: CT of the abdomen in the ED was consistent with diffuse pancreatic calcifications: Consistent with acute pancreatitis. On Creon #Type 2 diabetes mellitus, on insulin sliding scale. Checks ACHS. #History of sick sinus syndrome: Has pacemaker in situ #GERD: PPI #History of abdominal aortic aneurysm: Stable. Follow-up with vascular surgery on outpatient basis. #Nicotine dependence: Counseled to quit. Nicotine patch as needed DVT prophylaxis: SCDs Charges/Coding Visit Charges Inpatient E&M: 39029 Subs Hosp L2
[2024-10-13] MEDS: Creon 24,000 unit DR Capsule 1 CAP PO (10:31)
[2024-10-13] MEDS: SACUBITRIL/VALSARTAN 24/26 MG TABLET 1 EACH PO (10:31)
[2024-10-13] MEDS: Thiamine Hydrochloride 100 MG Tablet PO (10:31)
[2024-10-13] MEDS: Metoprolol(XL)Succ 25 MG Tablet PO (10:32)
[2024-10-13] MEDS: 0.9% Saline Lock 10 ML Syringe IV ×5 (10:33→23:56)
--- NOTE | 2024-10-13 11:54 | CASEMGMT ---
RN ZURI Assessment Face to Face with patient for initial transition planning/care coordination assessment. RN ZURI introduced self and role at [facility], pt voices understanding. Pt is A&Ox4 and is resting comfortably in bed and is calm. Care providers, pharmacy, and demographics verified. Admitting dx: HF Exacerbation LACE Strata: 3 PCP: Sigrid Call ([facility]) Specialists: Mariela BUSTILLO, JOVANNY [facility] Insurance: [facility] A/B, [facility] Prescription Benefit: Yes LNOK: Ezra (Father)Terra (Beto) Living Arrangements: Pt lives with his father in a mobile home with 5 steps to enter ADLs/IADLs: Pt states that he is indep. 6-Click score is 23 Transportation: Pt does not drive. Pt reports that his cousin is able to drive him on occasion. Pt states that his Uncle drives him on Fridays only. Pt states that he has used transportation through his insurance before but that he has to schedule this at least 4 days ahead of time. Pt states that he mainly uses [facility] Transportation Services. Pt is aware that they do not provide transport over the weekend. Pt states that he is going to call his cousin to see if they can pick the pt up over the weekend if he were to [place]. DME: [employer] with sufficient supplies. FWW. Scale for HF. Cane. Raised Toilet Seat. Home oxygen through [employer] (Verified pt's current orders state 2L Cont.). Pt states that he has a concentrator, portable tanks, pulse ox, and inhaler. This RN CM inquired if the pt's transportation can bring in a portable tank @ [place] since the pt does not have his here at [facility]. Pt educated that [employer] does not prefer to give out tanks in stock to pt's that already have them. Pt states, I don't need the portable tank to go home on. HHC/SNF: [facility]. Pt reports recent HH history but cannot recall the name of the agency. Pt states that a nurse only came out to his house once and then he canceled the HH. Pt states that he does not want to go to for OP Tx. ETOH/Drugs/Tobacco: Pt states that he uses to drink vodka daily but has quit. Pt states that he smokes 3-4 cigarettes per day. Pt denies illicit drug use. Pt?s goal: Home Plan: Home, follow for updated oxygen and transportation needs. The pt states that he has been out of bed and that he was able to ambulate fine. Pt states that he feels safe returning home with his father once medically ready. At this time, the pt was educated about the following services and then denied the need for HH, OP Tx, SNF, CCN, or Palliative care. Pt denies further questions or concerns at this time. CM to follow. Ivan Horta RN, CM
[2024-10-13] MEDS: Lidocaine 2% (20 ml mdv) 20 ML Vial (13:22)
--- NOTE | 2024-10-13 13:24 | FLU_PTH ---
PATIENT: ANALILIA TALLEY LOC: [facility] U#:[id number] AGE/SX: 64/M ROOM: [facility] RE10/12/[address]: Dr. Valeriy Connell DO : 1960 BED: 1 DIS: 10/17/2024 SPEC #: [id number] RECD: 10/13/24 13:57 STATUS: SOUAlexander REQ #: [id number] GENOVEVA: 10/13/24 13:[address]: Ashley Alvarado DEPT: CYTOLOGY RECD BY: Nick Stiles ENTERED: 10/16/24 07:32 SP TYPE: Fluid OTHR DR: MD Dr. Alcides Vallejo MD Dr. Bruce Arthur, MD Dr. Derek Brown, DO Dr. David P Myers, MD Dr. Eric Jopperi, DO Dr. Edward Matheis, MD Dr. Gautam Baskaran, MD Dr. Yordanos Habtegebriel, MD Dr. Hemant Dand, MD Dr. Jose Ochoa, MD Dr. Justin Wong, MD Dr. Kimber Foust, MD Dr. Lamia Aljundi, MD Dr. Marisa Magana, MD Dr. Nagapradee Nagajothi, MD Dr. Pritam Ghosh, MD Dr. Pavan Irukulla, MD Dr. Paige Pierce, MD Dr. Saad Farooqi, MD Dr. Sukhdeep Dhesi, DO Dr. Sujoy Gill, MD Dr. Soleyah Groves, MD Dr. Timothy Fernstrom, DO MD Dr. Toni Whitt MD Kristen Wenger, [facility], DO Tissues: A - THORACIC FLUID Procedures: Immunohistochemical Stains Special Stain Group II Surgery Specimen Level IV Cytospin Fluid IHC Stain ADDITIONAL HEADER OPERATION: Ultrasound guided thoracentesis PRE-OP DIAGNOSIS: Pleural effusion TISSUE SUBMITTED: A- Thoracentesis fluid for cytology DIAGNOSIS CYTOLOGY A. Pleural effusion, thoracentesis (cytospin, cell block): - No malignant cells identified. - Epithelioid cells observed in the cellblock are negative for MOC31, Calretinin, WT1, CLDN4 and BerEp4; and positive for CD68, consistent with histiocytes. CYTOLOGY STUDY Slides are reviewed. All matched controls reacted appropriately. These tests were developed and their performance characteristics determined by [facility]. They may not have been cleared or approved by the U.S. Food and Drug Administration. The FDA has determined that such clearance or approval is not necessary.? The above immunohistochemical?markers and/or special stains have been reviewed by the Pathologist. All controls show appropriate reactivity. (CLDN4, BerEp4) All immunohistochemistry, in situ hybridization, and histochemical tests were developed by and are performed at the [facility], [address] [place], [place] [id number], [place] [address]. All Immunofluorescent (IF)?tests were developed by and are performed at the [facility], [address], [place], [place] ?[address]. All tests reported here, except those addressing HER2 overexpression as a predictive marker, have not been cleared by or approved by the US Food and Drug Administration (FDA). The laboratory is regulated under CLIA as qualified to perform high-complexity testing. The tests are used for clinical purposes. They should not be regarded as investigational or for research CYTOLOGY GROSS A. Received is 85 ml of josé miguel-hazy fluid labeled with the patient's name and and designated per the requisition as Thoracentesis fluid. Submitted for cytology and cell block preparation. Mr 10/16/2024 CPT: 23724 ,55136, 79591, [id number]
--- NOTE | 2024-10-13 13:37 | RAD_ITS ---
EXAM: Inspiration expiration views. CLINICAL HISTORY: Status post right thoracentesis. COMPARISON: Prior study dated October 12, 2024. TECHNIQUE: Inspiration expiration views. FINDINGS: No evidence of pneumothorax following the right thoracentesis. Mild residual bilateral pleural effusions with bibasilar atelectasis worse at the left lung base. RAD/Chest Insp/Exp 2 View IMPRESSION: Status post right thoracentesis. No evidence of pneumothorax. Mild degree of residual pleural-parenchymal changes at the lung bases. Reading Location: [place] [id number]
--- NOTE | 2024-10-13 13:37 | PCM.OPRPT ---
Problems Associated Problem List Diagnoses (1) Pleural effusion due to congestive heart failure: Procedures Radiology Radiology US Procedures: 85090 Thoracentesis Operative Report (Standard) Operative Information Date of Procedure: 10/13/24 Pre-Operative Diagnosis: Pleural effusion Post-Operative Diagnosis: Pleural effusion Surgery/Procedure Performed: Ultrasound-guided thoracentesis medical reimbursement specialist: No Type of Anesthesia: Local Procedure Start Time: 13:17 Procedure Stop Time: 13:32 Select all DRAINS/GRAFTS/IMPLANTS that apply: None Estimated Blood Loss: 0 Specimen collected: Yes Description of specimen(s) removed: 100 mL of cloudy yellow fluid Description of surgery: PROCEDURE: Ultrasound Guided Thoracentesis, right ORDERING PROVIDER: Dr. Alvarado INDICATION: Male, 64 years old. Pleural effusion. PROVIDER: ANGELITA Muir PROCEDURE: The risks, benefits, and alternatives to the procedure were explained to the patient. The specific risks of bleeding, infection, and pneumothorax requiring chest tube insertion were discussed and accepted. Written informed consent was obtained. Coagulation studies and CBC were reviewed preprocedure. The patient was placed in the sitting, upright position. Ultrasonographic evaluation of the bilateral lower pleural spaces was carried out. An adequate pocket was identified in the right lower pleural space. The overlying skin was prepped with chlorhexidine and draped in sterile fashion. 2 % lidocaine was administered subcutaneously for local anesthesia. Under ultrasound guidance, a 5-[place] thoracentesis needle/catheter system was advanced into the right posterior lower pleural fluid collection. 1780 ml of cloudy yellow colored fluid was drained. A sample was sent to the lab for diagnostic purposes. The catheter was removed, and a sterile dressing was applied. The patient tolerated the procedure well without any immediate complications. A chest x-ray was ordered. There was no evidence of pneumothorax. The patient was transported back to his inpatient bed. IMPRESSION: Successful ultrasound guided thoracentesis of right pleural effusion. Surgical Findings: None Complications Complications: No
--- NOTE | 2024-10-13 13:55 | CASEMGMT ---
Patient is on oxygen at home, 2lpm continuously. Green sheet placed on chart as needed for increase in home oxygen order.
[2024-10-13 14:02] LABS: Cytology, Body Fluid / CSF SEE PATHOLOGY REPORT
[2024-10-13 15:09] LABS: Body Fluid Mononuclear WBC # 0.088 10^3/uL; Body Fluid Mononuclear WBC % 80.0 %; Body Fluid Polynuclear WBC # 0.022 10^3/uL; Body Fluid Polynuclear WBC % 20.0 %; Red Cell Count/Body Fluid 0.003 10^6/ul; White Blood Count/Body Fluid 0.110 10^3/uL
[2024-10-13 15:13] LABS: Auto B Fluid Analyzer BKGD Ct COUNTS W/IN LIMITS (W/IN LIMITS)
[2024-10-13 15:38] LABS: Source- Body Fluid THORACENTESIS
[2024-10-13 15:39] LABS: Appearance/Body Fluid CLOUDY; Color/Body Fluid LT YEL
[2024-10-13 16:13] LABS: Glucose, Body Fluid 222 mg/dL (Not Establ.)
[2024-10-13] MEDS: 0.9% Normal Saline (500mL Bag) 500 ML 999 ML IV ×2 (16:13→17:28)
--- NOTE | 2024-10-13 18:39 | CT_ITS ---
PROCEDURE: CTA CHEST W/WO CONTRAST 10/13/2024 REASON FOR EXAM: INCREASE 02 NEEDS TECHNIQUE: Procedure Code: [id number] Modality: CT Procedure: CTA CHEST W/WO CONTRAST Multiplanar Sagittal and Coronal images were obtained. CONTRAST: OMNIPAQUE 350 VOLUME: 100 mL One or more dose reduction techniques were used (e.g., Automated exposure control, adjustment of the mA and/or kV according to patient size, use of iterative reconstruction technique). RADIATION DOSE SUMMARY: CTDlvol: 8.48 mGy DLP: 288 mGycm COMPARISON: CT scan on 08/01/2024. FINDINGS: Moderate bilateral pleural effusions. Passive atelectatic airspace disease/airspace consolidations of the lower lobes. Multifocal airspace disease of the right middle lobe, right lower lobe and lingula, probably multifocal pneumonia. Moderate cardiomegaly. AICD is in good position. Right PICC line is in good position. Aortic valve replacement. Surgical changes of the ectatic/aneurysmal ascending aorta measuring 4.3 cm in its largest transverse dimension. Mild emphysema. Normal enhancement of the main pulmonary artery and right and left pulmonary arteries. Normal enhancement of the bilateral peripheral pulmonary arteries. There is no demonstrated pulmonary embolism. There is no demonstrated aortic dissection. Normal pericardium. Normal mediastinum. Normal hilar regions. Normal visualized trachea and bronchi. Normal chest wall structures. Normal osseous structures. Normal visualized upper abdomen. CT/CTA Chest W/WO Contrast IMPRESSION: Moderate bilateral pleural effusions. Passive atelectatic airspace disease/airspace consolidations of the lower lobes . Multifocal airspace disease of the right middle lobe, right lower lobe and ling rene, probably multifocal pneumonia. Moderate cardiomegaly. AICD is in good position. Right PICC line is in good position. Aortic valve replacement. Surgical changes of the ectatic/aneurysmal ascending aorta measuring 4.3 cm in its largest transverse dimension. Mild emphysema. No CT evidence of pulmonary embolus or aortic dissection. Reading Location: [place] [id number]
--- NOTE | 2024-10-13 19:10 | RAD_ITS ---
PROCEDURE: CHEST 1 VIEW (PORTABLE) 10/13/2024 REASON FOR EXAM: HYPOTENSIVE TECHNIQUE: Frontal view of the chest. COMPARISON: 10/13/2024 FINDINGS: Hardware: Sternotomy wires are present. Left-sided pacemaker. Heart: Cardiac and mediastinal contours are stable. Lungs: Dense right lung base consolidation. Trace right and moderate left pleural effusions. No pneumothorax. Bones: Degenerative changes are identified within the thoracic spine. RAD/Chest 1 View (Portable) IMPRESSION: Dense right lung base consolidation. Trace right and moderate left pleural eff usions. Reading Location[facility]
--- NOTE | 2024-10-13 20:03 | CON.PCM.CC_ITS ---
HPI Consult Data Date of Consult: 10/13/24 HPI Narrative HPI Narrative: HPI: 64yo M w/ chronic hypoxic respiratory failure on 2L NC, CHF EF 35-40%, multiple aortic valve replacements now with bioprosthetic valve stenosis, SSS s/p PM, h/o thoracentesis/paracentesis, chronic pancreatitis, AAA, h/o EtOH abuse, tobacco abuse who was admitted yesterday with dyspnea. He reports worsening dyspnea, LE swelling for past week before admit. Denied fevers/chills, cough, CP, abd pain, vomiting, or other prominent sx. He was started on IV diuresis, and also underwent R thoracentesis earlier today with 1.8L of cloudy yellow fluid drained. After this procedure he was noted to be hypotensive which did not respond with 500cc IVF boluses x 2, and so he was transferred to ICU for closer monitoring. Also had mild increase in O2 requirements from 2 to 5L NC. He reported improvement in breathing but then having some cough with clear watery fluid. Denies any chest/rib pain post-procedure. He does report some dizziness and nausea now, and had episode of vomiting earlier when eating post-procedure. No chronic lung disease in the past. Smoking 2-3 cigs per day, quit EtOH. Denies fevers, chills, diarrhea, syncope, dysphagia, odynophagia, chest pain, reflux symptoms, belly pain, dysuria, hematuria, melena, hematochezia, seizures, paralysis, or other neurological changes. ROS: 12-point ROS negative except as per HPI PFSH Medical History Chronic pancreatitis Chronic pancreatitis due to chronic alcoholism Malnutrition Pancytopenia Medically noncompliant Thrombocytopenia Macrocytosis associated with alcohol Ascites due to alcoholic cirrhosis Chronic diarrhea Chronic alcohol abuse Abdominal ascites MALIK (acute kidney injury) Seizures Alcoholic hepatitis Chronic pancreatitis Gastric wall thickening Alcohol dependence Anxiety Diabetes Pancreatitis Myocardial infarct Pacemaker AAA (abdominal aortic aneurysm) Admitted to alcohol detoxification center Alcohol abuse Hx of hypercholesterolemia History of diabetes mellitus Alcohol dependence Substance abuse Smoker Alcoholism Right bundle branch block (RBBB) Non-sustained ventricular tachycardia Thoracic aortic aneurysm SVT (supraventricular tachycardia) Ascending aortic dissection (~2005) Pure hypercholesterolemia Adrenal nodule Hiatal hernia Left carotid bruit Cardiac pacemaker in situ (~06/2016) Essential hypertension Pacemaker Sick sinus syndrome Tobacco use HTN (hypertension) Diabetes mellitus, type II Home Medications ?Medication ?Instructions ?Recorded ?Last Taken ?Type atorvastatin 10 mg tablet 10 mg PO DAILY CHOLESTEROL 0 10/17/20 07/31/24 History dapagliflozin propanediol 10 mg 10 mg PO DAILY DIABETE S 09/30/21 07/31/24 History tablet (Farxiga) multivitamin 1 tab PO DAILY SUPPLEMENT 07/31/24 History gabapentin 300 mg capsule 300 mg PO DAILY NEUROPATHY 1 07/31/24 History metformin 500 mg tablet,extended 500 mg PO DAILY DIABE COLLETTE 11/15/22 07/31/24 History release 24 hr folic acid 1 mg tablet 1 mg PO DAILY@0800 supplemen t #0 05/20/23 07/31/24 Rx tabs thiamine HCl (vitamin B1) 100 mg 100 mg PO DAILYCM vit padilla #0 tabs 05/20/23 07/31/24 Rx tablet (Vitamin B-1) pantoprazole 40 mg tablet,delayed 40 mg PO BID reflux #60 tabs 06/27/23 07/31/24 Rx release ferrous sulfate 325 mg (65 mg 325 mg PO DAILY suppleme nt 06/30/24 07/31/24 History iron) tablet (FeroSul) spironolactone 25 mg tablet 25 mg PO DAILY diuretic 30 days 07/06/24 07/31/24 Rx Held on 09/04/24. #30 tabs Instructions: Resume on 09/14/24. L.acidophil,salivari-Bifido 1 cap PO BID Probiotic 07/31/24 History bifidum-Strep thermoph 175 mg capsule furosemide 20 mg tablet 40 mg (2 x 20 mg) PO DAILY 3 0 days 08/03/24 Unknown Rx #60 tabs sacubitril 24 mg-valsartan 26 mg 1 tab PO BID #60 tabs 08/03/24 Unknown Rx tablet (Entresto) dexvfo-pwlhxvtx-bpvvvzq 1 cap PO BIDCM 08/29/24 Unkn own History 24,000-76,000-120,000 unit capsule,delayed rel (Creon) metoprolol succinate 25 mg 25 mg PO DAILY blood pressu re #30 10/12/24 Unknown Rx tablet,extended release 24 hr tabs Allergy/AdvReac Type Severity Reaction Status Date / Time No Known Allergies Allergy Verified 10/10/24 14:24 Family History Father CAD (coronary artery disease) Mother Dementia Surgical History History of aortic aneurysm repair (~2016) H/O cardiac catheterization History of cataract surgery History of hernia repair History of aortic valve replacement with bioprosthetic valve (~2016) H/O aortic valve replacement Social History household members: family housing: house Smoking Status: Light Smoker (<10/day) alcohol intake: current alcohol intake frequency: 0-2 drinks per day details: Reports currently ~ 2 tall boys daily. substance use type: former substance user caffeine: Yes Type: coffee Number of servings: 3 Objective Data Objective Data Vital Signs: Vital Signs Last response 3 Temperature 36.4 C L 10/13/24 18:20 Temperature Source Temporal 10/13/24 18:20 Pulse Rate 96 10/13/24 19:00 Respiratory Rate 21 H 10/13/24 19:00 Respiratory Effort Normal, Non-Labored 10/13/24 15:30 Respiratory Depth Normal 10/13/24 15:30 Respiratory Pattern Normal 10/13/24 15:30 Blood Pressure 85/70 L 10/13/24 19:00 Blood Pressure Mean 75 10/13/24 19:00 Blood Pressure Source Monitor 10/13/24 19:00 Blood Pressure Position Semi-Fowlers 10/13/24 18:20 Blood Pressure Location Left Arm 10/13/24 18:20 Pulse Ox 99 10/13/24 19:00 Oxygen Delivery Method Nasal Cannula 10/13/24 19:00 Oxygen Flow Rate (L/min) 5 10/13/24 19:00 I&O: I&O Last 24 Hours 3 10/12/24 10/13/24 10/13/24 23:59 11:59 23:59 Intake Total 660 / 660 240 / 1460 1220 / 1460 Output Total 950 / 950 100 / 2280 2180 / 2280 Balance -290 / -290 140 / -820 -960 / -820 I&O: Total Stay 3 10/12/24 09:47 thru 10/13/24 18:00 Intake Total 2120 Output Total 3230 Balance -1110 Current Meds Ordered / Administered: Current meds ordered / Administered 3 Generic Name Dose Route Start Last Admin Trade Name Adolfo PRN Reason Stop Dose Admin Acetaminophen 650 mg 10/12/24 16:43 10/13/24 14:49 Acetaminophen 325 Mg Tablet PO 650 mg Q6H PRN PRN Administration Pain 1-10 Or Fever >100.7 Albuterol Sulfate 2.5 mg 10/12/24 16:43 Albuterol 2.5 Mg/3 Ml Vial.Neb. INHALATION Q2H PRN PRN SOB &/OR WHEEZING Atorvastatin Calcium 10 mg 10/13/24 10:00 10/13/24 10:31 Atorvastatin Calcium 10 Mg Tablet PO 10 mg DAILY KUNAL Administration Ferrous Sulfate 325 mg 10/14/24 12:00 Ferrous Sulfate 325 Mg Tablet PO DAILY@1200 KUNAL Folic Acid 1 mg 10/13/24 08:00 10/13/24 10:31 Folic Acid 1 Mg Tablet PO 1 mg DAILY@0800 KUNAL Administration Furosemide 40 mg 10/13/24 10:00 10/13/24 14:46 Furosemide 40 Mg/4 Ml Vial IV 40 mg DAILY KUNAL Administration Gabapentin 300 mg 10/13/24 10:00 10/13/24 10:30 Gabapentin 300 Mg Capsule PO 300 mg DAILY KUNAL Administration Glucagon 1 mg 10/12/24 16:43 Glucagon 1 Mg/Ml Syringe IM X1 PRN HYPOGLYCEMIA Protocol Dextrose 250 mls @ 0 mls/hr 10/12/24 16:43 Dextrose 10%-Water IV .Q0M PRN HYPOGLYCEMIA Protocol As Directed Sodium Chloride 250 mls @ 15 mls/hr 10/12/24 16:44 IV .[id number] PRN Saline Flush Sodium Chloride 250 mls @ 15 mls/hr 10/12/24 16:44 IV .[id number] PRN Additional IVPB Infusion Norepinephrine Bitartrate 8 mg 250 mls @ 9.375 mls/hr 10/13/24 19:50 / Sodium Chloride CONT INF .[id number] KUNAL Protocol 5 MCG/MIN Insulin Human Lispro 0 unit 10/12/24 18:00 10/13/24 16:19 Insulin Lispro 100 Unit/Ml Insuln.Pen SC Not Given ACHS [facility] Protocol Melatonin 10 mg 10/12/24 16:43 10/12/24 21:16 Melatonin 10 Mg Tablet PO 10 mg QHS PRN PRN Administration INSOMNIA Metoprolol Succinate 25 mg 10/13/24 10:00 10/13/24 10:32 Metoprolol(Xl)Succ 25 Mg Tablet PO 25 mg DAILY [facility] Administration Protocol Midodrine 10 mg 10/13/24 19:17 Midodrine Hcl 5 Mg Tablet PO TIDCM [facility] Morphine Sulfate 2 mg 10/12/24 16:43 10/12/24 21:39 Morphine 2 Mg/Ml Syringe IV 2 mg Q3H PRN PRN Administration Pain Score 6-10 Ondansetron HCl 4 mg 10/12/24 16:43 10/13/24 10:33 Ondansetron 4 Mg/2 Ml Vial IV 4 mg Q8H PRN PRN Administration NAUSEA/VOMITING Oxycodone HCl 2.5 mg 10/12/24 16:43 10/13/24 06:01 Oxycodone 5 Mg Tablet PO 2.5 mg Q4H PRN PRN Administration Pain Score 4-10 Pancrelipase 1 cap 10/12/24 17:00 10/13/24 17:[address] Capsule PO [facility] Pantoprazole Sodium 40 mg 10/12/24 22:00 10/13/24 10:32 Pantoprazole Sodium 40 Mg Tablet PO 40 mg BID [facility] Administration Sacubitril/Valsartan 1 each 10/12/24 22:00 10/13/24 10:31 Sacubitril/Valsartan 24/26 Mg Tablet PO 1 each BID [facility] Administration Senna/Docusate Sodium 2 tablet 10/12/24 16:43 10/12/24 21:16 Senna/Docusate Sodium 1 Tablet PO 2 tablet BID PRN PRN Administration Constipation Sodium Chloride 10 - 40 ml 10/12/24 16:44 10/13/24 17:48 0.9% Saline Lock 10 Ml Syringe IV 10 ml UD PRN Administration SALINE FLUSH Spironolactone 25 mg 10/13/24 10:00 10/13/24 10:32 Spironolactone 25 Mg Tablet PO 25 mg DAILY [facility] Administration Protocol Thiamine HCl 100 mg 10/13/24 08:00 10/13/24 10:31 Thiamine Hydrochloride 100 Mg Tablet PO 100 mg DAILYCM [facility] Administration Lab / Micro Data 10/13/24 05:16 10/13/24 05:16 Labs: Laboratory Results - last 24 hr 10/12/24 17:15: POC Glucose 225 H 10/12/24 21:06: POC Glucose 324 H 10/13/24 05:16: WBC 4.9, RBC 3.22 L, Hgb 10.2 L, Hct 32.7 L, MCV 101.6 H, MCH 31.7, MCHC 31.2 L, RDW Std Deviation 62.5 H, RDW Coeff of Kalpana 16.7 H, Plt Count 140 L, MPV 12.3 H, Immature Gran % (Auto) 0.000, Neut % (Auto) 62.5, Lymph % (Auto) 20.9, Williams % (Auto) 11.9 H, Eos % (Auto) 3.1, Baso % (Auto) 1.6 H, Absolute Neuts (auto) 3.1, Absolute Lymphs (auto) 1.02, Nucleated RBC % 0, PT 18.2 H, INR 1.5, APTT 30.3, Sodium 138, Potassium 4.4, Chloride 104, Carbon Dioxide 25.8, Anion Gap 9, BUN 13, Creatinine 1.11, Estim Creat Clear Calc 62.07, Est GFR (MDRD) Non-Af 75, BUN/Creatinine Ratio 11.4, Glucose 178 H, Calcium 8.5, Total Bilirubin 0.38, AST 24, ALT 12, Alkaline Phosphatase 104, L actate Dehydrogenase 352 H, Total Protein 5.7 L, Albumin 3.0 L, Globulin 2.6, Albumin/Globulin Ratio 1.2 10/13/24 05:59: POC Glucose 172 H 10/13/24 12:15: POC Glucose 194 H 10/13/24 13:24: Fluid Source THORACENTESIS, Fluid Color LT YEL, Fluid Appearance CLOUDY, Fluid WBC 0.110, Fluid RBC 0.003, Fluid Tot Cell Count 0.147, Fld Polynuclear WBCs # 0.022, Fld Polynuclear WBCs % 20.0, Fluid Mononuclear WBCs 0.088, Fld Mononuclear WBCs % 80.0, Fluid Glucose 222, Fluid Total Protein 1.2, Fluid LDH 67, Fluid Comment 2 SEE COMMENT 10/13/24 16:19: POC Glucose 122 H Imaging Radiology Impression Chest X-Ray 10/13/24 13:37 IMPRESSION: Status post right thoracentesis. No evidence of pneumothorax. Mild degree of residual pleural-parenchymal changes at the lung bases. [facility] 10/13/24 19:10 IMPRESSION: Dense right lung base consolidation. Trace right and moderate left pleural effusions. Reading Location: [facility] Assessment and Plan . Assessment and plan: Physical Exam: Gen - NAD, fatigued HEENT - MMM. Sclera anicteric Resp - Diminished in bases, +crackles. Breathing nonlabored. No bruising noted around thora site CV - RRR. +valve click auscultated Abd - Soft, NT, ND Ext - No c/c. Trace edema, LE wrapped in ANKIT wraps Skin - +bruising Neuro - Grossly nonfocal. Alert and oriented I have reviewed the pertinent vital sign, laboratory, and imaging data. ASSESSMENT: # Hypotension - potential etiologies include overly brisk volume removal with diuretics/large volume thoracentesis, low EF/aortic stenosis, BP meds, post- procedural bleeding? No clear signs of developing sepsis or acute cardiac event but also need to exclude # Acute on chronic hypoxic respiratory failure on 2L NC # RLL infiltrate - suspect re-expansion edema, PNA not entirely excluded and pt also reported vomiting episode after eating earlier today # Bilateral pleural effusions R > L - s/p thora earlier today with ~1.8L fluid removed. Prior h/o thoracentesis/paracentesis in past well # CHF exacerbation - EF 35-40% in June 2024 # Multiple aortic valve replacements now with bioprosthetic valve stenosis # SSS s/p PM # Chronic pancreatitis on creon # Chronic anemia # Thrombocytopenia # AAA # h/o EtOH abuse # Tobacco abuse PLAN: -Started on levophed 5 mcg after BP did not respond to 1L bolus. Wean to keep MAP > 65. Give dose of albumin. Started on midodrine per IM as well -Hold diuretics, cardiac meds for now -On 3L NC near home baseline, wean as tolerated -Repeat CBC, trop, lactate -EKG -CTA chest pending -Consider repeat TTE if refractory/worsening hypotension -Empiric rocephin for now given worsening RLL infiltrate as above. Obtain Cx, UA, procal. Can likely stop abx if workup negative -f/u pleural fluid studies. Does not suggest infection currently, transudative and monocyte predominant -Thiamine FEN/GI: NPO for now Proph DVT/GI: SCDs, anticoagulation held for thora Code status: DNR/DNI Critical Care Time: 60 mins The entirety of this encounter was done via telemedicine using both audio and video. Consent was obtained.
[2024-10-13] MEDS: Norepinephrine 8 MG in 0.9% Normal Saline (250mL Bag) 242 ML 9.4 MG CONT INF (20:14)
--- NOTE | 2024-10-13 20:33 | EKG12_ITS ---
Test Reason : CHF Blood Pressure : */* mmHG Vent. Rate : 73 BPM Atrial Rate : 73 BPM P-R Int : 184 ms QRS Dur : 118 ms QT Int : 412 ms P-R-T Axes : -2 -16 95 degrees QTcB Int : 453 ms Normal sinus rhythm Right bundle branch block Abnormal ECG No previous ECGs available Confirmed by Dneys Pearson ([id number]), editor index MAILE BALDWIN ([id number]) on 10/16/2024 10:10:18 AM Referred By: Confirmed By: Denys Pearson
[2024-10-13 20:34] LABS: Hematocrit 32.6 % (40-54); Hemoglobin 10.4 g/dL (13.0-16.5)
[2024-10-13] MEDS: Lactobacillis Acidophilus 1 CAP PO (20:43)
--- NOTE | 2024-10-13 20:46 | PCM.HOSP.N ---
Hospitalist Note Patient transferred to the ICU with notable hypotension following thoracentesis. CXR ordered stat with no obvious PTX, CTPA pending, HH also ordered stat and stable, ICU consulted, will add BSA with IV Vanc and Zosyn in case septic etiology pending, NEP initiated, midodrine added initially prior to this, continue to closely monitor.
[2024-10-13 20:59] LABS: Mucous, Urine 0 SEEN /hpf (<or=2+)
[2024-10-13 21:21] LABS: Color, Urine Straw (Yellow); Glucose, Dipstick Normal (Normal); Ketone-Dipstick Negative (Negative); Leukocyte Esterase-Dipstick Negative /ul (Negative); Nitrite-Dipstick Negative (Negative); Occult Blood-Urine Negative /ul (Negative); Protein-Dipstick Negative (Negative); Specific Gravity, Urine 1.010 (1.002-1.030); Urine Bilirubin Dipstick Negative (Negative)
[2024-10-13] MEDS: Vancomycin HCl 1,500 MG in 0.9% Normal Saline (500mL Bag) 500 ML 250 MG IV (21:30)
[2024-10-13 21:33] LABS: Red Blood Cells-Urine 0-5 SEEN /hpf (0-5); Squamous Epithelial Cells - UA 0-5 SEEN /hpf (0-5)
[2024-10-13 21:39] LABS: Lipase 10 U/L (13-75)
[2024-10-13 21:41] LABS: Anion Gap 9 (5-15); BUN 14 mg/dL (4-19); BUN/Creat Ratio 12.8 RATIO (10-20); Calcium,Total 7.7 mg/dL (7.6-11.0); Carbon Dioxide 22.8 mmol/L (21.0-32.0); Chloride 106 mmol/L (98-108); Estimated Creatinine Clearance 63.21 ml/min (50-250); Glucose 217 mg/dL (70-99); Potassium 5.0 mmol/L (3.3-5.1); Procalcitonin 0.08 ng/mL (<=0.10); Troponin T High Sensitivity 106 ng/L (<=22)
[2024-10-13 22:20] LABS: Body Fluid QC Type(s) BF1C
[2024-10-13 23:29] LABS: Neutrophil (Segs) 24 %
[2024-10-13 23:30] LABS: Other Cell Type/BF 1 %
[2024-10-13] MEDS: Piperacil/Tazobactam 3.375 GM in 0.9% Normal Saline (50mL MB+) 50 ML IV (23:56)
[2024-10-14] VITALS (53 sets, daily range): BP systolic 75–122; BP diastolic 57–106; PULSE 62–92; RESP 16–28; TEMP 36.6; O2SAT 84–99; BMI 21.1
[2024-10-14 01:20] LABS: Troponin T High Sensitivity 143 ng/L (<=22)
--- NOTE | 2024-10-14 03:33 | PCM.RX.CS ---
Consult Antibiotic Management Pharmacy has been consulted to manage selected antibiotic: Vancomycin Type of Intervention Type of Consult: New start Labs Labs: Sodium 137 mmol/L (133-145) 10/13/24 20:50 Potassium 5.0 mmol/L (3.3-5.1) 10/13/24 20:50 Chloride 106 mmol/L (98-108) 10/13/24 20:50 Carbon Dioxide 22.8 mmol/L (21.0-32.0) 10/13/24 20:50 Anion Gap 9 (5-15) 10/13/24 20:50 BUN 14 mg/dL (4-19) 10/13/24 20:50 Creatinine 1.09 mg/dL (0.70-1.20) 10/13/24 20:50 Est GFR (MDRD) Non-Af 77 (>60) 10/13/24 20:50 BUN/Creatinine Ratio 12.8 RATIO (10-20) 10/13/24 20:50 Glucose 217 mg/dL (70-99) H 10/13/24 20:50 Microbiology Microbiology: Microbiology 10/13/24 20:50 Urine Catheter - Catheter Legionella Antigen - Final 10/13/24 20:50 Urine Catheter - Catheter Streptococcus pneumoniae Antigen (M - Final Dosing Weight Weight used for dosin.6 kg Estimated Creatinine Clearance Estimated Creatinine Clearance: 63.21 Goal Trough Goal Trough: 15-20 mcg/mL Pharmacy Plan for Drug Dosing Pharmacy Plan for Drug Dosing: Pharmacy Service will continue to monitor and adjust dosing as required. LOADING DOSE 1500MG GIVEN 10/13 @ 2130. START 750MG Q12H AND DRAW TROUGH PRIOR TO 4TH DOSE Follow-Up Labs Follow-Up Labs: Trough: Vancomycin Date/Time Labs Ordered Labs to be done on [date and time ordered]: 10/15 @ 0900
[2024-10-14] MEDS: Norepinephrine 8 MG in 0.9% Normal Saline (250mL Bag) 242 ML 37.5 MG CONT INF (04:42)
[2024-10-14] MEDS: 0.9% Saline Lock 10 ML Syringe IV ×3 (04:43→21:11)
[2024-10-14 05:05] LABS: Hematocrit 33.0 % (40-54); Hemoglobin 10.3 g/dL (13.0-16.5); Immature Granulocytes Count 0.020 X10^3/uL (0.0-0.0); Mean Corp Hgb Conc 31.2 g/dL (32-36); Mean Corpuscular Volume 103.4 fL (80-94); Mean Platelet Vol. 12.3 fl (6.2-12.0); NRBC Flagged by Analyzer 0 % (0-5); Platelet Count 159 K/mm3 (150-450); RBC Distribution Width CV 16.8 % (11.6-14.6); RBC Distribution Width SD 63.8 fl (35.1-43.9); Red Blood Count 3.19 M/mm3 (4.6-6.2); White Blood Count 6.7 K/mm3 (4.4-11.0)
[2024-10-14 05:42] LABS: Anion Gap 8 (5-15); BUN 16 mg/dL (4-19); BUN/Creat Ratio 13.2 RATIO (10-20); Calcium,Total 7.7 mg/dL (7.6-11.0); Carbon Dioxide 23.4 mmol/L (21.0-32.0); Chloride 108 mmol/L (98-108); Estimated Creatinine Clearance 61.76 ml/min (50-250); Glucose 152 mg/dL (70-99); Potassium 4.3 mmol/L (3.3-5.1)
[2024-10-14] MEDS: Piperacil/Tazobactam 3.375 GM in 0.9% Normal Saline (50mL MB+) 50 ML IV ×3 (06:23→21:02)
--- NOTE | 2024-10-14 07:51 | RAD_ITS ---
PROCEDURE: CHEST 1 VIEW (PORTABLE) 10/14/2024 REASON FOR EXAM: SOB TECHNIQUE: Frontal view of the chest. COMPARISON: Yesterday's exam. FINDINGS: Hardware and support lines: Multi lead cardiac pacing device. Sternotomy wires in place. Cardiac valve replacement. Heart: Mildly prominent. Lungs: Patchy airspace disease both lungs [id number]-left. Mildly worse on the right. Pleura: No pleural thickening. Bilateral pleural effusions [id number]-left. Mediastinum and aorta: Negative for hilar adenopathy. Mildly tortuous thoracic aorta. Bones: Age-appropriate degenerative changes of the spine. Other: Remainder of the exam negative. RAD/Chest 1 View (Portable) IMPRESSION: Progressing right lung base consolidation/pneumonia. Small left-sided pleural effusion and dependent atelectasis. Reading Location: [id number]
[2024-10-14] MEDS: Creon 24,000 unit DR Capsule 1 CAP PO ×2 (08:17→17:03)
[2024-10-14] MEDS: Thiamine Hydrochloride 100 MG Tablet PO (08:17)
[2024-10-14 08:30] LABS: Allen Test Positive; Base Excess 2 mmol/L (-2 to +2); FI02 8.0; PO2 54 mmHG (75-100); SITE L Radial; SO2 86 % (95-99)
[2024-10-14 08:35] LABS: Magnesium 1.7 mg/dL (1.5-2.2)
[2024-10-14] MEDS: Vancomycin HCl 750 MG in 0.9% Normal Saline (250mL Bag) 250 ML 250 MG IV ×2 (09:54→21:02)
--- NOTE | 2024-10-14 10:42 | PN_ITS ---
Subjective Subjective Patient seen and examined with his nurse by his bedside. Patient was emergently transferred to the ICU last night on account of persistent hypotension which was not responsive to fluid boluses. He ended up being started on vasopressors. Chest CT done did not show evidence of pneumonia and was started on broad- spectrum antibiotics. Patient has no active complaints today and feels well. However he looks paler than he did yesterday. Review of systems is otherwise neagtive. He still remains on levophed which is being titrated down. REview of systems is otherwise negative. Objective Data Objective Data Vital Signs: Vital Signs Temp Pulse Resp BP Pulse Ox O2 Del Method O2 Flow Rate 97.9 F 69 19 H 97/74 98 Airvo 50 10/14/24 05:00 10/14/24 09:30 10/14/24 09:30 10/14/24 09:30 10/14/24 09:30 10/14/24 09:30 10/14/24 09:00 FiO2 78 10/14/24 08:26 Oxygen Flow Rate (L/min) 50 Oxygen Delivery Method Airvo Weight: 147 lb 0.773 oz Body Mass Index (BMI) 21.1 Intake & Output: Intake and Output for Last 24 Hours 10/12/24 10/13/24 10/14/24 23:59 23:59 23:59 Intake Total 660 / 660 1509.51 / 1528.31 1097.63 / 1097.63 Output Total 950 / 950 2280 / 2530 700 / 700 Balance -290 / -290 -770.49 / -1001.69 397.63 / 397.63 Lab / Micro Data 10/14/24 04:50 10/14/24 04:50 Labs: Laboratory Results - last 24 hr 10/13/24 12:15: POC Glucose 194 H 10/13/24 13:24: Fluid Source THORACENTESIS, Fluid Color LT YEL, Fluid Appearance CLOUDY, Fluid WBC 0.110, Fluid RBC 0.003, Fluid Tot Cell Count 0.147, Fld Polynuclear WBCs # 0.022, Fld Polynuclear WBCs % 20.0, Fluid Mononuclear WBCs 0.088, Fld Mononuclear WBCs % 80.0, Fluid Neutrophils 24, Fluid Lymphocytes 38, Fluid Monocytes 4, Fluid Macrophages 33, Fluid Other Cells 1, Fl Pathologist Comment May follow, Fluid Glucose 222, Fluid Total Protein 1.2, Fluid LDH 67, Fluid Comment 2 SEE COMMENT 10/13/24 16:19: POC Glucose 122 H 10/13/24 20:10: Hgb 10.4 L, Hct 32.6 L 10/13/24 20:50: Sodium 137, Potassium 5.0, Chloride 106, Carbon Dioxide 22.8, Anion Gap 9, BUN 14, Creatinine 1.09, Estim Creat Clear Calc 63.21, Est GFR (MDRD) Non-Af 77, BUN/Creatinine Ratio 12.8, Glucose 217 H, Lactic Acid < 1.0, Calcium 7.7, Troponin T High Sens 106 H*, Lipase 10 L, Procalcitonin 0.08, Urine Color Straw, Urine Clarity Clear, Urine pH 6.0, Ur Specific [place] 1.010, Urine Protein Negative, Urine Glucose (UA) Normal, Urine Ketones Negative, Urine Occult Blood Negative, Urine Nitrite Negative, Urine Bilirubin Negative, Urine Urobilinogen Normal, Ur Leukocyte Esterase Negative, Urine RBC 0-5 SEEN, Urine WBC 0-5 SEEN, Ur Squamous Epith Cells 0-5 SEEN, Urine Bacteria 0 SEEN, Urine Mucus 0 SEEN 10/14/24 00:14: POC Glucose 272 H 10/14/24 00:15: Troponin T High Sens 143 H* D 10/14/24 04:50: WBC 6.7, RBC 3.19 L, Hgb 10.3 L, Hct 33.0 L, MCV 103.4 H, MCH 32.3 H, MCHC 31.2 L, RDW Std Deviation 63.8 H, RDW Coeff of Kalpana 16.8 H, Plt Count 159, MPV 12.3 H, Immature Gran % (Auto) 0.300, Neut % (Auto) 71.2 H, Lymph % (Auto) 16.5 L, [place] % (Auto) 9.0, Eos % (Auto) 1.5, Baso % (Auto) 1.5 H, Absolute Neuts (auto) 4.7, Absolute Lymphs (auto) 1.10, Nucleated RBC % 0, Sodium 139, Potassium 4.3, Chloride 108, Carbon Dioxide 23.4, Anion Gap 8, BUN 16, Creatinine 1.17, Estim Creat Clear Calc 61.76, Est GFR (MDRD) Non-Af 70, BUN/Creatinine Ratio 13.2, Glucose 152 H, Calcium 7.7, Phosphorus 3.5, Magnesium 1.7 10/14/24 07:25: POC Glucose 130 H Micro: Microbiology 10/13/24 20:50 Urine Catheter - Catheter Legionella Antigen - Final 10/13/24 20:50 Urine Catheter - Catheter Streptococcus pneumoniae Antigen (M - Final ABG Data ABG results: ABG 10/14/24 08:27 Specimen Type ART Sample Site L Radial pH 7.37 Bicarbonate Actual 27.3 H Total CO2 29 Base Excess 2 O2 Saturation 86 L O2 % 8.0 ABG pCO2 47.7 H ABG pO2 54 L Cipriano Test Positive O2 Delivery Device Cannula Vent Mode Not entered Radiography Diagnostic Testing: Radiology Impression Chest X-Ray 10/13/24 13:37 IMPRESSION: Status post right thoracentesis. No evidence of pneumothorax. Mild degree of residual pleural-parenchymal changes at the lung bases. Reading Location: [facility] Chest CTA 10/13/24 18:39 IMPRESSION: Moderate bilateral pleural effusions. Passive atelectatic airspace disease/airspace consolidations of the lower lobes. Multifocal airspace disease of the right middle lobe, right lower lobe and lingula, probably multifocal pneumonia. Moderate cardiomegaly. AICD is in good position. Right PICC line is in good position. Aortic valve replacement. Surgical changes of the ectatic/aneurysmal ascending aorta measuring 4.3 cm in its largest transverse dimension. Mild emphysema. No CT evidence of pulmonary embolus or aortic dissection. Reading [facility] Chest X-Ray 10/13/24 19:10 IMPRESSION: Dense right lung base consolidation. Trace right and moderate left pleural effusions. Reading Location[facility] Chest X-Ray 10/14/24 07:51 IMPRESSION: Progressing right lung base consolidation/pneumonia. Small left-sided pleural effusion and dependent atelectasis. Reading Location: [id number] Physical Exam Const alert, oriented x3 and no apparent distress Constitutional Narrative: frail General Appearance: cooperative HEENT normocephalic, head/scalp atraumatic, moist oral mucous membranes and oropharynx normal Eyes PERRL Neck supple and no JVD Lymph Lymphatic: no lymphedema noted Resp Resp Narrative: now on AirVo Cardio regular rate, regular rhythm, S1 normal heart sound, S2 normal heart sound and no murmurs GI normal to inspection, nondistended, normoactive bowel sounds, soft to palpation, non-tender and non-distended Extremity normal capillary refill, no clubbing, cyanosis or edema and no calf tenderness General Extremity: no tenderness to palpation of joints or extremities Skin General Skin Exam: no breakdown Neuro CN's II-XII intact bilaterally, no focal motor deficits and no sensory deficits noted Motor Exam: strength 5/5 throughout Psych thought process normal, cooperative and affect normal Appearance: appropriate Assessment & Plan Assessment/Plan (1) Acute exacerbation of chronic heart failure: (2) Bilateral pleural effusion: PLAN: Plan #Acute on chronic hypoxic respiratory failure due to acute exacerbation of heart failure reduced ejection fraction and bilateral pleural effusion as well as pneumonia * Has known EF of 35 to 40% from echo in June 2024. proBNP on admission was over 50,000 * Had right sided thoracentesis yesterday with removal of about 1.78 L of fluid. * Patient subsequently became hypotensive and did not respond to fluid boluses. He had to be transferred up to the ICU and started on Levophed. * Chest CT done showed a large right-sided pneumonia. He is now on IV vancomycin and Zosyn. * He is now also requiring Airvo due to increasing oxygen requirements. Critical care on board. * Titrate oxygen as needed to maintain saturation above 90%. * #Shock likely hypovolemic versus septic * Became hypotensive after he had the thoracentesis and was given Lasix. He was given fluid bolus of 500 cc x 2 but still remained hypotensive. He is now on Levophed. * Also on broad-spectrum antibiotics. Titrate Levophed to maintain MAP of at least 65 * #Elevated troponin * Initial troponin was 105 and trended down. * Chest pain. Likely due to demand ischemia from the acute exacerbation of heart failure. #History of chronic pancreatitis in the setting of chronic alcohol use disorder: * CT of the abdomen in the ED was consistent with diffuse pancreatic calcifications: Consistent with acute pancreatitis. On Creon #Type 2 diabetes mellitus, on insulin sliding scale. Checks ACHS. #History of sick sinus syndrome: Has pacemaker in situ #GERD: PPI #History of abdominal aortic aneurysm: Stable. Follow-up with vascular surgery on outpatient basis. #Nicotine dependence: Counseled to quit. Nicotine patch as needed DVT prophylaxis: SCDs Charges/Coding Visit Charges Inpatient E&M: [address] [facility] H[facility] L3
[2024-10-14] MEDS: Lactobacillis Acidophilus 1 CAP PO ×2 (10:57→21:15)
[2024-10-14] MEDS: TITRATION PARAMETER CHANGE 1 EACH IV (12:45)
--- NOTE | 2024-10-14 14:53 | PCM.PN.TICU ---
Objective Data Objective Data Vital Signs: Vital Signs Last response Temperature 36.6 C 10/14/24 05:00 Temperature Source Temporal 10/14/24 05:00 Pulse Rate 75 10/14/24 13:00 Respiratory Rate 20 H 10/14/24 13:00 Respiratory Effort Short of Breath 10/14/24 12:00 Respiratory Depth Shallow 10/14/24 12:00 Respiratory Pattern Normal 10/14/24 12:20 Blood Pressure 84/67 L 10/14/24 13:00 Blood Pressure Mean 72 10/14/24 13:00 Blood Pressure Source Monitor 10/14/24 13:00 Blood Pressure Position Supine 10/14/24 13:00 Blood Pressure Location Left Arm 10/14/24 13:00 Pulse Ox 93 10/14/24 13:00 Oxygen Delivery Method Airvo 10/14/24 13:00 Oxygen Flow Rate (L/min) 5 10/14/24 13:00 Fraction of Inspired Oxygen (FIO2) 40 10/14/24 12:20 I&O: I&O Last 24 Hours 10/13/24 10/14/24 10/14/24 23:59 11:59 23:59 Intake Total 1269.51 / 1528.31 1161.73 / 1585.53 423.80 / 1585.53 Output Total 2180 / 2530 700 / 850 150 / 850 Balance -910.49 / -1001.69 461.73 / 735.53 273.80 / 735.53 I&O: Total Stay 10/12/24 09:47 thru 10/14/24 14:00 Intake Total 3755.04 Output Total 4080 Balance -324.96 Current Meds Ordered / Administered: Current meds ordered / Administered Generic Name Dose Route Start Last Admin Trade Name Freq PRN Reason Stop Dose Admin Acetaminophen 650 mg 10/12/24 16:43 10/14/24 04:42 Acetaminophen 325 Mg Tablet PO 650 mg Q6H PRN PRN Administration Pain 1-10 Or Fever >100.7 Albuterol Sulfate 2.5 mg 10/12/24 16:43 Albuterol 2.5 Mg/3 Ml Vial.Neb. INHALATION Q2H PRN PRN SOB &/OR WHEEZING Atorvastatin Calcium 10 mg 10/13/24 10:00 10/14/24 10:57 Atorvastatin Calcium 10 Mg Tablet PO 10 mg DAILY KUNAL Administration Ferrous Sulfate 325 mg 10/14/24 12:00 10/14/24 13:24 Ferrous Sulfate 325 Mg Tablet PO 325 mg DAILY@1200 KUNAL Administration Folic Acid 1 mg 10/13/24 08:00 10/14/24 08:17 Folic Acid 1 Mg Tablet PO 1 mg DAILY@0800 KUNAL Administration Furosemide 40 mg 10/13/24 10:00 10/13/24 14:46 Furosemide 40 Mg/4 Ml Vial IV 40 mg DAILY KUNAL Administration Furosemide 60 mg 10/14/24 14:52 Furosemide 100 Mg/10 Ml Vial IV 10/14/24 14:53 X1 ONE Protocol Gabapentin 300 mg 10/13/24 10:00 10/14/24 10:57 Gabapentin 300 Mg Capsule PO 300 mg DAILY KUNAL Administration Glucagon 1 mg 10/12/24 16:43 Glucagon 1 Mg/Ml Syringe IM X1 PRN HYPOGLYCEMIA Protocol Dextrose 250 mls @ 0 mls/hr 10/12/24 16:43 Dextrose 10%-Water IV .Q0M PRN HYPOGLYCEMIA Protocol As Directed Sodium Chloride 250 mls @ 15 mls/hr 10/12/24 16:44 IV .[id number] PRN Saline Flush Sodium Chloride 250 mls @ 15 mls/hr 10/12/24 16:44 IV .[id number] PRN Additional IVPB Infusion Norepinephrine Bitartrate 8 mg 250 mls @ 9.375 mls/hr 10/13/24 19:50 10/14/24 13:00 / Sodium Chloride CONT INF 10 mcg/min .[id number] KUNAL 18.8 mls/hr Titration Protocol 5 MCG/MIN Vancomycin IV-PHARMACY TO DOSE 500 mls @ 250 mls/hr 10/13/24 20:44 1 each/ Sodium Chloride IV X1 PRN Rx to Dose Protocol Piperacillin Sod/Tazobactam 50 mls @ 12.5 mls/hr 10/13/24 21:00 10/14/24 13:58 Sod 3.375 gm/ Sodium Chloride IV 12.5 mls/hr Q8 KUNAL Administration Vancomycin HCl 750 mg/ Sodium 265 mls @ 250 mls/hr 10/14/24 09:30 10/14/24 13:15 Chloride IV Infused Q12H KUNAL Infusion Insulin Human Lispro 0 unit 10/12/24 18:00 10/14/24 11:46 Insulin Lispro 100 Unit/Ml Insuln.Pen SC 4 units ACHS KNUAL Administration Protocol Melatonin 10 mg 10/12/24 16:43 10/12/24 21:16 Melatonin 10 Mg Tablet PO 10 mg QHS PRN PRN Administration INSOMNIA Metoprolol Succinate 25 mg 10/13/24 10:00 10/13/24 10:32 Metoprolol(Xl)Succ 25 Mg Tablet PO 25 mg DAILY KUNAL Administration Protocol Midodrine 10 mg 10/13/24 19:17 10/14/24 13:24 Midodrine Hcl 5 Mg Tablet PO 10 mg TIDCM KUNAL Administration Morphine Sulfate 2 mg 10/12/24 16:43 10/14/24 11:06 Morphine 2 Mg/Ml Syringe IV 2 mg Q3H PRN PRN Administration Pain Score 6-10 Ondansetron HCl 4 mg 10/12/24 16:43 10/14/24 11:06 Ondansetron 4 Mg/2 Ml Vial IV 4 mg Q8H PRN PRN Administration NAUSEA/VOMITING Oxycodone HCl 2.5 mg 10/12/24 16:43 10/13/24 06:01 Oxycodone 5 Mg Tablet PO 2.5 mg Q4H PRN PRN Administration Pain Score 4-10 Pancrelipase 1 cap 10/12/24 17:00 10/14/24 08:[address] Capsule PO 1 cap BIDCM KUNAL Administration Pantoprazole Sodium 40 mg 10/12/24 22:00 10/14/24 10:57 Pantoprazole Sodium 40 Mg Tablet PO 40 mg BID KUNAL Administration Sacubitril/Valsartan 1 each 10/12/24 22:00 10/13/24 10:31 Sacubitril/Valsartan 24/26 Mg Tablet PO 1 each BID KUNAL Administration Senna/Docusate Sodium 2 tablet 10/12/24 16:43 10/12/24 21:16 Senna/Docusate Sodium 1 Tablet PO 2 tablet BID PRN PRN Administration Constipation Sodium Chloride 10 - 40 ml 10/12/24 16:44 10/14/24 04:43 0.9% Saline Lock 10 Ml Syringe IV 20 ml UD PRN Administration SALINE FLUSH Spironolactone 25 mg 10/13/24 10:00 10/13/24 10:32 Spironolactone 25 Mg Tablet PO 25 mg DAILY KUNAL Administration Protocol Thiamine HCl 100 mg 10/13/24 08:00 10/14/24 08:17 Thiamine Hydrochloride 100 Mg Tablet PO 100 mg DAILYCM [facility] Administration Vancomycin Protocol 1 lab 10/15/24 08:00 Vancomycin Trough/Random Due MC 10/15/24 10:00 DAILY [facility] Lab / Micro Data 10/14/24 04:50 10/14/24 04:50 Labs: Laboratory Results - last 24 hr 10/13/24 13:24: Fluid Source THORACENTESIS, Fluid Color LT YEL, Fluid Appearance CLOUDY, Fluid WBC 0.110, Fluid RBC 0.003, Fluid Tot Cell Count 0.147, Fld Polynuclear WBCs # 0.022, Fld Polynuclear WBCs % 20.0, Fluid Mononuclear WBCs 0.088, Fld Mononuclear WBCs % 80.0, Fluid Neutrophils 24, Fluid Lymphocytes 38, Fluid Monocytes 4, Fluid Macrophages 33, Fluid Other Cells 1, Fl Pathologist Comment May follow, Fluid Glucose 222, Fluid Total Protein 1.2, Fluid LDH 67, Fluid Comment 2 SEE COMMENT 10/13/24 16:19: POC Glucose 122 H 10/13/24 20:10: Hgb 10.4 L, Hct 32.6 L 10/13/24 20:50: Sodium 137, Potassium 5.0, Chloride 106, Carbon Dioxide 22.8, Anion Gap 9, BUN 14, Creatinine 1.09, Estim Creat Clear Calc 63.21, Est GFR (MDRD) Non-Af 77, BUN/Creatinine Ratio 12.8, Glucose 217 H, Lactic Acid < 1.0, Calcium 7.7, Troponin T High Sens 106 H*, Lipase 10 L, Procalcitonin 0.08, Urine Color Straw, Urine Clarity Clear, Urine pH 6.0, Ur Specific [place] 1.010, Urine Protein Negative, Urine Glucose (UA) Normal, Urine Ketones Negative, Urine Occult Blood Negative, Urine Nitrite Negative, Urine Bilirubin Negative, Urine Urobilinogen Normal, Ur Leukocyte Esterase Negative, Urine RBC 0-5 SEEN, Urine WBC 0-5 SEEN, Ur Squamous Epith Cells 0-5 SEEN, Urine Bacteria 0 SEEN, Urine Mucus 0 SEEN 10/14/24 00:14: POC Glucose 272 H 10/14/24 00:15: Troponin T High Sens 143 H* D 10/14/24 04:50: WBC 6.7, RBC 3.19 L, Hgb 10.3 L, Hct 33.0 L, MCV 103.4 H, MCH 32.3 H, MCHC 31.2 L, RDW Std Deviation 63.8 H, RDW Coeff of [place] 16.8 H, Plt Count 159, MPV 12.3 H, Immature Gran % (Auto) 0.300, Neut % (Auto) 71.2 H, Lymph % (Auto) 16.5 L, [place] % (Auto) 9.0, Eos % (Auto) 1.5, Baso % (Auto) 1.5 H, Absolute Neuts (auto) 4.7, Absolute Lymphs (auto) 1.10, Nucleated RBC % 0, Sodium 139, Potassium 4.3, Chloride 108, Carbon Dioxide 23.4, Anion Gap 8, BUN 16, Creatinine 1.17, Estim Creat Clear Calc 61.76, Est GFR (MDRD) Non-Af 70, BUN/Creatinine Ratio 13.2, Glucose 152 H, Calcium 7.7, Phosphorus 3.5, Magnesium 1.7 10/14/24 07:25: POC Glucose 130 H 10/14/24 11:45: POC Glucose 285 H Micro: Microbiology 10/13/24 20:50 Urine Catheter - Catheter Legionella Antigen - Final 10/13/24 20:50 Urine Catheter - Catheter Streptococcus pneumoniae Antigen (M - Final ABG Data ABG results: ABG 10/14/24 08:27 Specimen Type ART Sample Site L Radial pH 7.37 Bicarbonate Actual 27.3 H Total CO2 29 Base Excess 2 O2 Saturation 86 L O2 % 8.0 ABG pCO2 47.7 H ABG pO2 54 L Cipriano Test Positive O2 Delivery Device Cannula Vent Mode Not entered Imaging Radiology Impression Chest CTA 10/13/24 18:39 IMPRESSION: Moderate bilateral pleural effusions. Passive atelectatic airspace disease/airspace consolidations of the lower lobes. Multifocal airspace disease of the right middle lobe, right lower lobe and lingula, probably multifocal pneumonia. Moderate cardiomegaly. AICD is in good position. Right PICC line is in good position. Aortic valve replacement. Surgical changes of the ectatic/aneurysmal ascending aorta measuring 4.3 cm in its largest transverse dimension. Mild emphysema. No CT evidence of pulmonary embolus or aortic dissection. Reading [facility] Chest [facility] 10/13/24 19:10 IMPRESSION: Dense right lung base consolidation. Trace right and moderate left pleural effusions. Reading [facility] Chest X-Ray 10/14/24 07:51 IMPRESSION: Progressing right lung base consolidation/pneumonia. Small left-sided pleural effusion and dependent atelectasis. Reading Location: [id number] Assessment and Plan . Assessment and plan: HPI 64yo M w/ chronic hypoxic respiratory failure on 2L NC, CHF EF 35-40%, multiple aortic valve replacements now with bioprosthetic valve stenosis, SSS s/p PM, h/o thoracentesis/paracentesis, chronic pancreatitis, AAA, h/o EtOH abuse, tobacco abuse who was admitted yesterday with dyspnea. He reports worsening dyspnea, LE swelling for past week before admit. Denied fevers/chills, cough, CP, abd pain, vomiting, or other prominent sx. He was started on IV diuresis, and also underwent R thoracentesis earlier today with 1.8L of cloudy yellow fluid drained. After this procedure he was noted to be hypotensive which did not respond with 500cc IVF boluses x 2, and so he was transferred to ICU for closer monitoring. Also had mild increase in O2 requirements from 2 to 5L NC. He reported improvement in breathing but then having some cough with clear watery fluid. Denies any chest/rib pain post-procedure. He does report some dizziness and nausea now, and had episode of vomiting earlier when eating post-procedure. No chronic lung disease in the past. Smoking 2-3 cigs per day, quit EtOH. 10/14/24 Patient seen and examined. Chart and data reviewed. He appears uncomfortable - feels dyspneic Breathing high-flow O2 at rest UOP sluggish Lab and imaging reviewed NE infusing for BP support Physical Exam: Gen - NAD, fatigued HEENT - MMM. Sclera anicteric Resp - Diminished in bases, +crackles. Breathing nonlabored. No bruising noted around thora site CV - RRR. +valve click auscultated Abd - Soft, NT, ND Ext - No c/c. Trace edema, LE wrapped in ANKIT wraps Skin - +bruising Neuro - Grossly nonfocal. Alert and oriented I have reviewed the pertinent vital sign, laboratory, and imaging data. ASSESSMENT: # Hypotension - multi-factorial; wean NE as able - MAP currently around 90 mm Hg # Acute on chronic hypoxic respiratory failure # Bilateral infiltrate - pulmonary edema # Bilateral pleural effusions R > L - s/p thora with ~1.8L fluid removed. Prior h/o thoracentesis/paracentesis in past well # CHF exacerbation - EF 35-40% in June 2024 # Multiple aortic valve replacements now with bioprosthetic valve stenosis - severe noted on recent TTE # SSS s/p PM # Chronic pancreatitis on creon # Chronic anemia # Thrombocytopenia # AAA # h/o EtOH abuse # Tobacco abuse / emphysema PLAN: -wean NE as able -O2 as needed -try to keep I/O (-) -consider stopping ABX -CTA chest reviewed -f/u pleural fluid studies. Does not suggest infection currently, transudative and monocyte predominant -Thiamine -follow renal function FEN/GI: NPO for now Proph DVT/GI: SCDs, anticoagulation held Code status: DNR/DNI Critical Care Time: 50 minutes The entirety of this encounter was done via Telemedicine
[2024-10-14] MEDS: Norepinephrine 8 MG in 0.9% Normal Saline (250mL Bag) 242 ML 18.8 MG CONT INF (17:01)
[2024-10-15] VITALS (37 sets, daily range): BP systolic 85–117; BP diastolic 63–94; PULSE 60–94; RESP 14–30; TEMP 36.3–36.7; O2SAT 85–100; BMI 21.7
[2024-10-15] MEDS: 0.9% Saline Lock 10 ML Syringe IV ×3 (00:17→06:08)
[2024-10-15] MEDS: Norepinephrine 8 MG in 0.9% Normal Saline (250mL Bag) 242 ML 18.8 MG CONT INF (02:45)
[2024-10-15 04:05] LABS: Hematocrit 31.5 % (40-54); Hemoglobin 10.0 g/dL (13.0-16.5); Immature Granulocytes Count 0.020 X10^3/uL (0.0-0.0); Mean Corp Hgb Conc 31.7 g/dL (32-36); Mean Corpuscular Volume 103.3 fL (80-94); Mean Platelet Vol. 12.0 fl (6.2-12.0); NRBC Flagged by Analyzer 0 % (0-5); Platelet Count 130 K/mm3 (150-450); RBC Distribution Width CV 16.6 % (11.6-14.6); RBC Distribution Width SD 63.1 fl (35.1-43.9); Red Blood Count 3.05 M/mm3 (4.6-6.2); White Blood Count 7.0 K/mm3 (4.4-11.0)
[2024-10-15 04:22] LABS: AST(SGOT) 31 U/L (<=37); Alanine Aminotransfer ALT/SGPT 10 U/L (<=46); Albumin, Serum 2.8 g/dL (3.4-4.8); Alkaline Phosphatase 92 U/L (40-129); Anion Gap 11 (5-15); BUN 20 mg/dL (4-19); BUN/Creat Ratio 16.3 RATIO (10-20); Calcium,Total 7.5 mg/dL (7.6-11.0); Carbon Dioxide 21.7 mmol/L (21.0-32.0); Chloride 105 mmol/L (98-108); Estimated Creatinine Clearance 60.22 ml/min (50-250); Globulin 2.4 g/dL (2.2-4.2); Glucose 223 mg/dL (70-99); Magnesium 1.7 mg/dL (1.5-2.2); Potassium 4.6 mmol/L (3.3-5.1)
[2024-10-15 04:39] LABS: Pro- Brain NATRIURETIC PEPTIDE 61663 pg/mL (<=900)
[2024-10-15] MEDS: Piperacil/Tazobactam 3.375 GM in 0.9% Normal Saline (50mL MB+) 50 ML IV ×3 (05:09→21:54)
[2024-10-15] MEDS: Furosemide 500 MG in Empty Viaflex 50 mL 1 EACH CONT INF (08:07)
[2024-10-15] MEDS: Creon 24,000 unit DR Capsule 1 CAP PO ×2 (08:18→16:19)
[2024-10-15] MEDS: Thiamine Hydrochloride 100 MG Tablet PO (08:20)
[2024-10-15] MEDS: Lactobacillis Acidophilus 1 CAP PO ×2 (08:21→21:08)
[2024-10-15] MEDS: Vancomycin Trough/Random Due 1 LAB MC ×2 (08:28→12:10)
--- NOTE | 2024-10-15 09:40 | RAD_ITS ---
PROCEDURE: CHEST 1 VIEW (PORTABLE) 10/15/2024 REASON FOR EXAM: SOB TECHNIQUE: Frontal view of the chest. COMPARISON: Yesterday's exam FINDINGS: Hardware and support lines: Dual lead cardiac pacing device left-side approach. PICC line in place. Cardiac valve replacement. Sternotomy wires in place. Heart: Mild cardiomegaly. Lungs: Interstitial opacities/airspace disease in both lungs relatively stable. Probable atelectasis left lung. Pleura: No pleural thickening. No pleural effusion. Mediastinum and aorta: Negative for hilar adenopathy. Mildly tortuous thoracic aorta. Bones: Age-appropriate degenerative changes of the spine. Other: Remainder of the exam negative. RAD/Chest 1 View (Portable) IMPRESSION: Relatively stable chest. Bilateral airspace disease and pleural effusions. Suspect infiltrate/airspace disease most prominent on the right. Reading Location: [id number]
--- NOTE | 2024-10-15 10:12 | PCM.PN.TICU ---
Objective Data Objective Data Vital Signs: Vital Signs Last response Temperature 36.6 C 10/14/24 05:00 Temperature Source Temporal 10/14/24 05:00 Pulse Rate 87 10/15/24 07:00 Respiratory Rate 21 H 10/15/24 07:00 Respiratory Effort Normal, Short of Breath 10/15/24 04:00 Respiratory Depth Normal 10/15/24 04:00 Respiratory Pattern Normal 10/15/24 04:13 Blood Pressure 102/71 10/15/24 07:00 Blood Pressure Mean 81 10/15/24 07:00 Blood Pressure Source Monitor 10/15/24 07:00 Blood Pressure Position Supine 10/15/24 07:00 Blood Pressure Location Left Arm 10/15/24 07:00 Pulse Ox 98 10/15/24 07:00 Oxygen Delivery Method Airvo 10/15/24 07:00 Oxygen Flow Rate (L/min) 55 10/15/24 05:00 Fraction of Inspired Oxygen (FIO2) 55 10/15/24 07:00 I&O: I&O Last 24 Hours 10/14/24 10/14/24 10/15/24 11:59 23:59 11:59 Intake Total 1161.73 / 3248.17 2058.34 / 3248.17 376.21 / 376.21 Output Total 700 / 1650 950 / 1650 500 / 500 Balance 461.73 / 1598.17 1108.34 / 1598.17 -123.79 / -123.79 I&O: Total Stay 10/12/24 09:47 thru 10/15/24 07:00 Intake Total 5765.79 Output Total 5380 Balance 385.79 Current Meds Ordered / Administered: Current meds ordered / Administered Generic Name Dose Route Start Last Admin Trade Name Freq PRN Reason Stop Dose Admin Acetaminophen 650 mg 10/12/24 16:43 10/14/24 04:42 Acetaminophen 325 Mg Tablet PO 650 mg Q6H PRN PRN Administration Pain 1-10 Or Fever >100.7 Albuterol Sulfate 2.5 mg 10/12/24 16:43 Albuterol 2.5 Mg/3 Ml Vial.Neb. INHALATION Q2H PRN PRN SOB &/OR WHEEZING Atorvastatin Calcium 10 mg 10/13/24 10:00 10/15/24 08:21 Atorvastatin Calcium 10 Mg Tablet PO 10 mg DAILY KUNAL Administration Ferrous Sulfate 325 mg 10/14/24 12:00 10/14/24 13:24 Ferrous Sulfate 325 Mg Tablet PO 325 mg DAILY@1200 KUNAL Administration Folic Acid 1 mg 10/13/24 08:00 10/15/24 08:19 Folic Acid 1 Mg Tablet PO 1 mg DAILY@0800 KUNAL Administration Gabapentin 300 mg 10/13/24 10:00 10/15/24 08:27 Gabapentin 300 Mg Capsule PO 300 mg DAILY KUNAL Administration Glucagon 1 mg 10/12/24 16:43 Glucagon 1 Mg/Ml Syringe IM X1 PRN HYPOGLYCEMIA Protocol Dextrose 250 mls @ 0 mls/hr 10/12/24 16:43 Dextrose 10%-Water IV .Q0M PRN HYPOGLYCEMIA Protocol As Directed Sodium Chloride 250 mls @ 15 mls/hr 10/12/24 16:44 IV .[id number] PRN Saline Flush Sodium Chloride 250 mls @ 15 mls/hr 10/12/24 16:44 IV .[id number] PRN Additional IVPB Infusion Norepinephrine Bitartrate 8 mg 250 mls @ 9.375 mls/hr 10/13/24 19:50 10/15/24 07:00 / Sodium Chloride CONT INF 0 mcg/min .[id number] KUNAL 0 mls/hr Titration Protocol 5 MCG/MIN Vancomycin IV-PHARMACY TO DOSE 500 mls @ 250 mls/hr 10/13/24 20:44 1 each/ Sodium Chloride IV X1 PRN Rx to Dose Protocol Piperacillin Sod/Tazobactam 50 mls @ 12.5 mls/hr 10/13/24 21:00 10/15/24 05:09 Sod 3.375 gm/ Sodium Chloride IV 12.5 mls/hr Q8 KUNAL Administration Vancomycin HCl 750 mg/ Sodium 265 mls @ 250 mls/hr 10/14/24 09:30 10/14/24 22:18 Chloride IV Infused Q12H KUNAL Infusion Furosemide 500 mg/ N/A 50 mls @ 1 mls/hr 10/15/24 07:30 10/15/24 08:07 CONT INF 10 mg/hr .Q50H KUNAL 1 mls/hr Administration 10 MG/HR Insulin Human Lispro 0 unit 10/12/24 18:00 10/15/24 08:05 Insulin Lispro 100 Unit/Ml Insuln.Pen SC 2 units ACHS KUNAL Administration Protocol Melatonin 10 mg 10/12/24 16:43 10/12/24 21:16 Melatonin 10 Mg Tablet PO 10 mg QHS PRN PRN Administration INSOMNIA Midodrine 10 mg 10/13/24 19:17 10/15/24 08:20 Midodrine Hcl 5 Mg Tablet PO 10 mg TIDCM KUNAL Administration Morphine Sulfate 2 mg 10/12/24 16:43 10/15/24 06:05 Morphine 2 Mg/Ml Syringe IV 2 mg Q3H PRN PRN Administration Pain Score 6-10 Ondansetron HCl 4 mg 10/12/24 16:43 10/14/24 11:06 Ondansetron 4 Mg/2 Ml Vial IV 4 mg Q8H PRN PRN Administration NAUSEA/VOMITING Oxycodone HCl 2.5 mg 10/12/24 16:43 10/13/24 06:01 Oxycodone 5 Mg Tablet PO 2.5 mg Q4H PRN PRN Administration Pain Score 4-10 Pancrelipase 1 cap 10/12/24 17:00 10/15/24 08:18 Creon 24[address] Capsule PO 1 cap BIDCM KUNAL Administration Pantoprazole Sodium 40 mg 10/12/24 22:00 10/15/24 08:22 Pantoprazole Sodium 40 Mg Tablet PO 40 mg BID KUNAL Administration Senna/Docusate Sodium 2 tablet 10/12/24 16:43 10/12/24 21:16 Senna/Docusate Sodium 1 Tablet PO 2 tablet BID PRN PRN Administration Constipation Sodium Chloride 10 - 40 ml 10/12/24 16:44 10/15/24 06:08 0.9% Saline Lock 10 Ml Syringe IV 10 ml UD PRN Administration SALINE FLUSH Thiamine HCl 100 mg 10/13/24 08:00 10/15/24 08:20 Thiamine Hydrochloride 100 Mg Tablet PO 100 mg DAILYCM KUNAL Administration Lab / Micro Data 10/15/24 03:47 10/15/24 03:47 Labs: Laboratory Results - last 24 hr 10/14/24 11:45: POC Glucose 285 H 10/14/24 16:47: POC Glucose 150 H 10/14/24 21:19: POC Glucose 223 H 10/15/24 03:47: WBC 7.0, RBC 3.05 L, Hgb 10.0 L, Hct 31.5 L, MCV 103.3 H, MCH 32.8 H, MCHC 31.7 L, RDW Std Deviation 63.1 H, RDW Coeff of Kalp[place] 16.6 H, Plt Count 130 L, MPV 12.0, Immature Gran % (Auto) 0.300, Neut % (Auto) 73.2 H, Lymph % (Auto) 14.7 L, [place] % (Auto) 9.1, Eos % (Auto) 1.1, Baso % (Auto) 1.6 H, Absolute Neuts (auto) 5.1, Absolute Lymphs (auto) 1.02, Nucleated RBC % 0, Sodium 137, Potassium 4.6, Chloride 105, Carbon Dioxide 21.7, Anion Gap 11, BUN 20 H, Creatinine 1.20, Estim Creat Clear Calc 60.22, Est GFR (MDRD) Non-Af 68, BUN/Creatinine Ratio 16.3, Glucose 223 H, Calcium 7.5 L, Magnesium 1.7, Total Bilirubin 0.35, AST 31, ALT 10, Alkaline Phosphatase 92, [place] [address] H, Total Protein 5.2 L, Albumin 2.8 L, Globulin 2.4, Albumin/Globulin Ratio 1.2 10/15/24 07:53: POC Glucose 205 H Imaging Radiology Impression Chest X-Ray 10/15/24 09:40 IMPRESSION: Relatively stable chest. Bilateral airspace disease and pleural effusions. Suspect infiltrate/airspace disease most prominent on the right. Reading Location: [facility] Assessment and Plan . Assessment and plan: HPI 64yo M w/ chronic hypoxic respiratory failure on 2L NC, CHF EF 35-40%, multiple aortic valve replacements now with bioprosthetic valve stenosis, SSS s/p PM, h/o thoracentesis/paracentesis, chronic pancreatitis, AAA, h/o EtOH abuse, tobacco abuse who was admitted yesterday with dyspnea. He reports worsening dyspnea, LE swelling for past week before admit. Denied fevers/chills, cough, CP, abd pain, vomiting, or other prominent sx. He was started on IV diuresis, and also underwent R thoracentesis earlier today with 1.8L of cloudy yellow fluid drained. After this procedure he was noted to be hypotensive which did not respond with 500cc IVF boluses x 2, and so he was transferred to ICU for closer monitoring. Also had mild increase in O2 requirements from 2 to 5L NC. He reported improvement in breathing but then having some cough with clear watery fluid. Denies any chest/rib pain post-procedure. He does report some dizziness and nausea now, and had episode of vomiting earlier when eating post-procedure. No chronic lung disease in the past. Smoking 2-3 cigs per day, quit EtOH. 10/15/24 Patient seen and examined. Chart and data reviewed. He feels better Breathing high-flow O2 comfortably at rest UOP improved w/ loop diuretics Lab and imaging reviewed - renal function stable NE is now off Physical Exam: Gen - NAD, looks chronically ill HEENT - MMM. Sclera anicteric Resp - Diminished in bases, +crackles. Breathing nonlabored. CV - RRR. +valve click auscultated Abd - Soft, NT, ND Ext - No c/c. Trace edema, LE wrapped in ANKIT wraps Skin - +bruising Neuro - Grossly nonfocal. Alert and oriented I have reviewed the pertinent vital sign, laboratory, and imaging data. ASSESSMENT: # Hypotension - multi-factorial; resolved # Acute on chronic hypoxic respiratory failure # Bilateral infiltrate - pulmonary edema # Bilateral pleural effusions R > L - s/p thora with ~1.8L fluid removed. 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 - severe noted on recent TTE # SSS s/p PM # Chronic pancreatitis on creon # Chronic anemia # Thrombocytopenia # AAA # h/o EtOH abuse # Tobacco abuse / emphysema PLAN: -O2 as needed -try to keep I/O (-) - furosemide now infusing -consider stopping ABX -CTA chest reviewed -pleural fluid studies. Does not suggest infection currently, transudative and monocyte predominant -Thiamine -follow renal function FEN/GI: PO as tolerated Proph DVT/GI: SCDs, anticoagulation held Code status: DNR/DNI Critical Care Time: 50 minutes The entirety of this encounter was done via Telemedicine
[2024-10-15 10:27] LABS: Vancomycin, Trough Level 17.1 ug/mL (5.0-15.0)
[2024-10-15] MEDS: Vancomycin HCl 750 MG in 0.9% Normal Saline (250mL Bag) 250 ML 250 MG IV ×2 (11:14→20:34)
--- NOTE | 2024-10-15 13:38 | PCM.PROGNOTE ---
Subjective Subjective Patient seen and examined. Patient had no active complaints. He said he did feel like he was feeling back up with fluid. He was off the Levophed drip since this morning. His BNP has gone up to 66,000. Review of systems otherwise negative. He was on Airvo this morning but has been weaned down to 4 L of oxygen. Objective Data Objective Data Vital Signs: Vital Signs Temp Pulse Resp BP Pulse Ox O2 Del Method O2 Flow Rate 97.9 F 86 25 H 96/79 97 Nasal Cannula 4 10/14/24 05:00 10/15/24 11:00 10/15/24 11:00 10/15/24 11:00 10/15/24 12:52 10/15/24 12:52 10/15/24 12:52 FiO2 55 10/15/24 09:00 Oxygen Flow Rate (L/min) 4 Oxygen Delivery Method Nasal Cannula Weight: 151 lb 7.321 oz Body Mass Index (BMI) 21.7 Intake & Output: Intake and Output for Last 24 Hours 10/13/24 10/14/24 10/15/24 23:59 23:59 23:59 Intake Total 1509.51 / 1528.31 3220.07 / 3248.17 704.34 / 704.34 Output Total 2280 / 2530 1650 / 1650 500 / 500 Balance -770.49 / -1001.69 1570.07 / 1598.17 204.34 / 204.34 Lab / Micro Data 10/15/24 03:47 10/15/24 03:47 Labs: Laboratory Results - last 24 hr 10/14/24 16:47: POC Glucose 150 H 10/14/24 21:19: POC Glucose 223 H 10/15/24 03:47: WBC 7.0, RBC 3.05 L, Hgb 10.0 L, Hct 31.5 L, MCV 103.3 H, MCH 32.8 H, MCHC 31.7 L, RDW Std Deviation 63.1 H, RDW Coeff of Kalpana 16.6 H, Plt Count 130 L, MPV 12.0, Immature Gran % (Auto) 0.300, Neut % (Auto) 73.2 H, Lymph % (Auto) 14.7 L, [place] % (Auto) 9.1, Eos % (Auto) 1.1, Baso % (Auto) 1.6 H, Absolute Neuts (auto) 5.1, Absolute Lymphs (auto) 1.02, Nucleated RBC % 0, Sodium 137, Potassium 4.6, Chloride 105, Carbon Dioxide 21.7, Anion Gap 11, BUN 20 H, Creatinine 1.20, Estim Creat Clear Calc 60.22, Est GFR (MDRD) Non-Af 68, BUN/Creatinine Ratio 16.3, Glucose 223 H, Calcium 7.5 L, Magnesium 1.7, Total Bilirubin 0.35, AST 31, ALT 10, Alkaline Phosphatase 92, [place] [address] H, Total Protein 5.2 L, Albumin 2.8 L, Globulin 2.4, Albumin/Globulin Ratio 1.2 10/15/24 07:53: POC Glucose 205 H 10/15/24 09:40: Vancomycin Trough 17.1 H 10/15/24 11:20: POC Glucose 205 H Micro: Microbiology 10/13/24 20:50 Urine Catheter - Catheter Legionella Antigen - Final 10/13/24 20:50 Urine Catheter - Catheter Streptococcus pneumoniae Antigen (M - Final Radiography Diagnostic Testing: Radiology Impression Chest X-Ray 10/15/24 09:40 IMPRESSION: Relatively stable chest. Bilateral airspace disease and pleural effusions. Suspect infiltrate/airspace disease most prominent on the right. Reading Location: [facility] Physical Exam Const alert, oriented x3 and no apparent distress Constitutional Narrative: frail General Appearance: cooperative HEENT normocephalic, head/scalp atraumatic, moist oral mucous membranes and oropharynx normal Eyes PERRL Neck supple and no JVD Lymph Lymphatic: no lymphedema noted Resp Resp Narrative: now on AirVo, but weaned down to 4L of oxygen. Cardio regular rate, regular rhythm, S1 normal heart sound, S2 normal heart sound and no murmurs GI normal to inspection, nondistended, normoactive bowel sounds, soft to palpation, non-tender and non-distended Extremity normal capillary refill, no clubbing, cyanosis or edema and no calf tenderness General Extremity: no tenderness to palpation of joints or extremities Skin General Skin Exam: no breakdown Neuro CN's II-XII intact bilaterally, no focal motor deficits and no sensory deficits noted Motor Exam: strength 5/5 throughout Psych thought process normal, cooperative and affect normal Appearance: appropriate Assessment & Plan Assessment/Plan (1) Acute exacerbation of chronic heart failure: (2) Bilateral pleural effusion: PLAN: Plan #Acute on chronic hypoxic respiratory failure due to acute exacerbation of heart failure reduced ejection fraction and bilateral pleural effusion as well as pneumonia Has known EF of 35 to 40% from echo in June 2024. proBNP on admission was over 50,000 Had right sided thoracentesis yesterday with removal of about 1.78 L of fluid. Patient subsequently became hypotensive and did not respond to fluid boluses. He had to be transferred up to the ICU and started on Levophed. Chest CT done showed a large right-sided pneumonia. He is now on IV vancomycin and Zosyn. he is now off levophed. Weaned off bipap onto 4L of oxygen Started on Lasix drip today as his proBNP is up to 66,000. Critical care is on board. Titrate oxygen to maintain saturation above 92%. cardiology consulted today due to markedly elevated BNP #Shock likely hypovolemic versus septic Became hypotensive after he had the thoracentesis and was given Lasix. He was given fluid bolus of 500 cc x 2 but still remained hypotensive. He is now on Levophed. Also on broad-spectrum antibiotics. Now off levophed since this morning. #Elevated troponin had some chest pain on admission but it did not recur. Initial troponin was 105 and trended down. Likely due to hypoxia from acute exacerbation of heart failure. 2D echo from 06/2024 showed EF of 35-40% with moderate left ventricular systolic dysfunction severe global left ventricular hypokinesia and severe concentric left ventricular hypertrophy as well as moderate to severe bioprosthetic aortic valve stenosis chest pain has resolved. #History of chronic pancreatitis in the setting of chronic alcohol use disorder: CT of the abdomen in the ED was consistent with diffuse pancreatic calcifications: Consistent with acute pancreatitis. On Creon #Type 2 diabetes mellitus, on insulin sliding scale. Checks ACHS. #History of sick sinus syndrome: Has pacemaker in situ #GERD: PPI #History of abdominal aortic aneurysm: Stable. Follow-up with vascular surgery on outpatient basis. #Nicotine dependence: Counseled to quit. Nicotine patch as needed DVT prophylaxis: SCDs, lovenox Charges/Coding Visit Charges Inpatient E&M: 79073 Subs Hosp L2
--- NOTE | 2024-10-15 14:27 | PCM.RX.CS ---
Consult Antibiotic Management Pharmacy has been consulted to manage selected antibiotic: Vancomycin Type of Intervention Type of Consult: Follow-up Suspected Infection Suspected Infection: Other Labs Labs: Sodium 137 mmol/L (133-145) 10/15/24 03:47 Potassium 4.6 mmol/L (3.3-5.1) 10/15/24 03:47 Chloride 105 mmol/L (98-108) 10/15/24 03:47 Carbon Dioxide 21.7 mmol/L (21.0-32.0) 10/15/24 03:47 Anion Gap 11 (5-15) 10/15/24 03:47 BUN 20 mg/dL (4-19) H 10/15/24 03:47 Creatinine 1.20 mg/dL (0.70-1.20) 10/15/24 03:47 Est GFR (MDRD) Non-Af 68 (>60) 10/15/24 03:47 BUN/Creatinine Ratio 16.3 RATIO (10-20) 10/15/24 03:47 Glucose 223 mg/dL (70-99) H 10/15/24 03:47 Vancomycin Trough 17.1 ug/mL (5.0-15.0) H 10/15/24 09:40 Microbiology Microbiology: Microbiology 10/13/24 20:50 Urine Catheter - Catheter Legionella Antigen - Final 10/13/24 20:50 Urine Catheter - Catheter Streptococcus pneumoniae Antigen (M - Final Goal Trough Goal Trough: 15-20 mcg/mL Pharmacy Plan for Drug Dosing Pharmacy Plan for Drug Dosing: VANCOMYCIN LEVEL RECEIVED Current Vancomycin Dose: 750mg q12h (0930, 2130) Number of Doses Received: x1 1500mg dose, x2 750mg doses Vancomycin Level: 17.1 (drawn 10/15 at 0940) Hours Since Last Dose: 12.5 hours since last 750mg dose (10/14 at 2102) Renal Function: SrCr 1.20 Renal Function Trend: SrCr stable (was 1.17 on 10/14/24) Lab/Micro: Vancomycin Plan/Comments: resulted trough of 17.1 is within the ordered goal trough range of 15-20. recommend continuing current dose of 750mg q12h and checking another trough in 4 doses Pending Level: 10/16/24 at 2100 Pharmacy Service will continue to monitor and adjust dosing as required. Follow-Up Labs Follow-Up Labs: Trough: Vancomycin (10/16/24 at 2100)
--- NOTE | 2024-10-15 17:25 | CON.PCM.CA_ITS ---
Assessment & Plan Assessment/Plan (1) Acute exacerbation of chronic heart failure: PLAN: Patient has returned fraction of 35 to 40% by echo in June 2024. His volume status appears to have improved compared to admission. We will decrease his Lasix to 5 mg/h overnight. Monitor his creatinine closely. Likely tomorrow he could be switched to Lasix p.o. Reasonable to repeat an echo to evaluate his bioprosthetic arctic valve stenosis. His beta-maria luz, ANKIT inhibitor have been on hold as he was hypotensive requiring Levophed. This can be slowly restarted. (2) SVT (supraventricular tachycardia): (3) History of aortic valve replacement with bioprosthetic valve: HPI Consult Data Date of Consult: 10/15/24 HPI Narrative Reason for Consultation: CHF HPI Narrative: ANALILIA TALLEY, is a 64 M who presents with shortness of breath. Patient was found to have elevated BNP and was started on treatment for decompensated heart failure. It looks like about 1.7 L of pleural fluid was removed and then the patient became hypotensive. He had to be on Levophed briefly and this has been discontinued. He was also given fluid boluses. He is currently on a Lasix drip. His shortness of breath is improved but he is not back to his baseline. He still has some orthopnea. Patient has history of aortic aneurysm repair in 2005 and then in 2016. He also had mechanical aortic valve replacement in 2014 followed by replacing that with a bioprosthetic valve in 2016. He denies any history of bypass grafts. In June of this year he had a 2D echo which revealed an EF of 35 to 40%, mean gradient across the aortic valve of 40 and peak gradient of 60 mmHg. In 2020 his ejection fraction was 70%, mean gradient was 12 and peak gradient was 24. 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 [facility] Medical History Chronic pancreatitis Chronic pancreatitis due to chronic alcoholism Malnutrition Pancytopenia Medically noncompliant Thrombocytopenia Macrocytosis associated with alcohol Ascites due to alcoholic cirrhosis Chronic diarrhea Chronic alcohol abuse Abdominal ascites MALIK (acute kidney injury) Seizures Alcoholic hepatitis Chronic pancreatitis Gastric wall thickening Alcohol dependence Anxiety Diabetes Pancreatitis Myocardial infarct Pacemaker AAA (abdominal aortic aneurysm) Admitted to alcohol detoxification center Alcohol abuse Hx of hypercholesterolemia History of diabetes mellitus Alcohol dependence Substance abuse Smoker Alcoholism Right bundle branch block (RBBB) Non-sustained ventricular tachycardia Thoracic aortic aneurysm SVT (supraventricular tachycardia) Ascending aortic dissection (~2005) Pure hypercholesterolemia Adrenal nodule Hiatal hernia Left carotid bruit Cardiac pacemaker in situ (~06/2016) Essential hypertension Pacemaker Sick sinus syndrome Tobacco use HTN (hypertension) Diabetes mellitus, type II Home Medications ?Medication ?Instructions ?Recorded ?Last Taken ?Type atorvastatin 10 mg tablet 10 mg PO DAILY CHOLESTEROL 0 10/17/20 07/31/24 History dapagliflozin propanediol 10 mg 10 mg PO DAILY DIABETE S 09/30/21 07/31/24 History tablet (Farxiga) multivitamin 1 tab PO DAILY SUPPLEMENT 07/31/24 History gabapentin 300 mg capsule 300 mg PO DAILY NEUROPATHY 1 07/31/24 History metformin 500 mg tablet,extended 500 mg PO DAILY DIABE COLLETTE 11/15/22 07/31/24 History release 24 hr folic acid 1 mg tablet 1 mg PO DAILY@0800 supplemen t #0 05/20/23 07/31/24 Rx tabs thiamine HCl (vitamin B1) 100 mg 100 mg PO DAILYCM vit padilla #0 tabs 05/20/23 07/31/24 Rx tablet (Vitamin B-1) pantoprazole 40 mg tablet,delayed 40 mg PO BID reflux #60 tabs 06/27/23 07/31/24 Rx release ferrous sulfate 325 mg (65 mg 325 mg PO DAILY suppleme nt 06/30/24 07/31/24 History iron) tablet (FeroSul) spironolactone 25 mg tablet 25 mg PO DAILY diuretic 30 days 07/06/24 07/31/24 Rx Held on 09/04/24. #30 tabs Instructions: Resume on 09/14/24. L.acidophil,salivari-Bifido 1 cap PO BID Probiotic 07/31/24 History bifidum-Strep thermoph 175 mg capsule furosemide 20 mg tablet 40 mg (2 x 20 mg) PO DAILY 3 0 days 08/03/24 Unknown Rx #60 tabs sacubitril 24 mg-valsartan 26 mg 1 tab PO BID #60 tabs 08/03/24 Unknown Rx tablet (Entresto) hhjmcl-neoijath-thydxhx 1 cap PO BIDCM 08/29/24 Unkn own History 24,000-76,000-120,000 unit capsule,delayed rel (Creon) metoprolol succinate 25 mg 25 mg PO DAILY blood pressu re #30 10/12/24 Unknown Rx tablet,extended release 24 hr tabs Allergy/AdvReac Type Severity Reaction Status Date / Time No Known Allergies Allergy Verified 10/10/24 14:24 Family History Father CAD (coronary artery disease) Mother Dementia Surgical History History of aortic aneurysm repair (~2016) H/O cardiac catheterization History of cataract surgery History of hernia repair History of aortic valve replacement with bioprosthetic valve (~2016) H/O aortic valve replacement Social History household members: family housing: house Smoking Status: Light Smoker (<10/day) alcohol intake: current alcohol intake frequency: 0-2 drinks per day details: Reports currently ~ 2 tall boys daily. substance use type: former substance user caffeine: Yes Type: coffee Number of servings: 3 Physical Exam Const alert and oriented x3 HEENT normocephalic Eyes no scleral icterus Resp normal respiratory effort Resp Narrative: Decreased breath sounds in both bases more prominent on the right side. Coarse breath sounds on the right side Cardio regular rate Cardio Narrative: Ejection systolic murmur is heard Extremity Extremity Narrative: Trace bilateral pitting edema Charges/Coding Visit Charges Inpatient E&M: 00026 Init Hosp L2 Objective Data Vital Signs: Vital Signs Temp Pulse Resp BP Pulse Ox O2 Del Method O2 Flow Rate 97.9 F 65 25 H 109/83 H 100 Nasal Cannula 4 10/14/24 05:00 10/15/24 16:00 10/15/24 16:00 10/15/24 16:00 10/15/24 16:00 10/15/24 16:00 10/15/24 16:00 FiO2 55 10/15/24 09:00 Oxygen Flow Rate (L/min) 4 Oxygen Delivery Method Nasal Cannula Weight: 151 lb 7.321 oz Body Mass Index (BMI) 21.7 Intake & Output: Intake and Output for Last 24 Hours 09/07/0210/14/24 10/15/24 23:59 23:59 23:59 Intake Total 1509.51 / 1528.31 3220.07 / 3248.17 1339.34 / 1339.34 Output Total 2280 / 2530 1650 / 1650 750 / 750 Balance -770.49 / -1001.69 1570.07 / 1598.17 589.34 / 589.34 Lab / Micro Data 10/15/24 03:47 10/15/24 03:47 Labs: Laboratory Results - last 24 hr 10/14/24 21:19: POC Glucose 223 H 10/15/24 03:47: WBC 7.0, RBC 3.05 L, Hgb 10.0 L, Hct 31.5 L, MCV 103.3 H, MCH 32.8 H, MCHC 31.7 L, RDW Std Deviation 63.1 H, RDW Coeff of Kalpana 16.6 H, Plt Count 130 L, MPV 12.0, Immature Gran % (Auto) 0.300, Neut % (Auto) 73.2 H, Lymph % (Auto) 14.7 L, [place] % (Auto) 9.1, Eos % (Auto) 1.1, Baso % (Auto) 1.6 H, Absolute Neuts (auto) 5.1, Absolute Lymphs (auto) 1.02, Nucleated RBC % 0, Sodium 137, Potassium 4.6, Chloride 105, Carbon Dioxide 21.7, Anion Gap 11, BUN 20 H, Creatinine 1.20, Estim Creat Clear Calc 60.22, Est GFR (MDRD) Non-Af 68, BUN/Creatinine Ratio 16.3, Glucose 223 H, Calcium 7.5 L, Magnesium 1.7, Total Bilirubin 0.35, AST 31, ALT 10, Alkaline Phosphatase 92, [place] [address] H, Total Protein 5.2 L, Albumin 2.8 L, Globulin 2.4, Albumin/Globulin Ratio 1.2 10/15/24 07:53: POC Glucose 205 H 10/15/24 09:40: Vancomycin Trough 17.1 H 10/15/24 11:20: POC Glucose 205 H 10/15/24 16:16: POC Glucose 219 H Cardiology Labs/Tests 10/15/24 03:47: WBC 7.0, RBC 3.05 L, Hgb 10.0 L, Hct 31.5 L, MCV 103.3 H, MCH 32.8 H, MCHC 31.7 L, Plt Count 130 L, MPV 12.0, Immature Gran % (Auto) 0.300, N eut % (Auto) 73.2 H, Lymph % (Auto) 14.7 L, [place] % (Auto) 9.1, Eos % (Auto) 1.1, Baso % (Auto) 1.6 H, Absolute Neuts (auto) 5.1, Nucleated RBC % 0, Sodium 137, Potassium 4.6, Chloride 105, Carbon Dioxide 21.7, Anion Gap 11, BUN 20 H, Creatinine 1.20, Est GFR (MDRD) Non-Af 68, BUN/Creatinine Ratio 16.3, Glucose 223 H, Calcium 7.5 L, Magnesium 1.7, Total Bilirubin 0.35 Rhythm: EKG: ECHO: Stress Test: Cardiac Cath: PCI: CT Surgery: Holter monitor: EPS: PPM: CXR: Chest CT Scan: Radiography Diagnostic Testing: Radiology Impression Chest X-Ray 10/15/24 09:40 IMPRESSION: Relatively stable chest. Bilateral airspace disease and pleural effusions. Suspect infiltrate/airspace disease most prominent on the right. Reading Location: [id number] Risk Score for UA/STEMI Assesmment (YES = 1) Risk Stratification Applicable: No
[2024-10-15] MEDS: MELATONIN 10 MG TABLET PO (22:28)
[2024-10-16] VITALS (22 sets, daily range): BP systolic 85–118; BP diastolic 63–91; PULSE 64–113; RESP 13–25; TEMP 36.3–37.1; O2SAT 82–100; BMI 22.1
[2024-10-16] MEDS: 0.9% Saline Lock 10 ML Syringe IV ×2 (03:34→08:37)
[2024-10-16 03:53] LABS: Hematocrit 29.6 % (40-54); Hemoglobin 9.5 g/dL (13.0-16.5); Immature Granulocytes Count 0.020 X10^3/uL (0.0-0.0); Mean Corp Hgb Conc 32.1 g/dL (32-36); Mean Corpuscular Volume 103.1 fL (80-94); Mean Platelet Vol. 12.2 fl (6.2-12.0); NRBC Flagged by Analyzer 0 % (0-5); Platelet Count 112 K/mm3 (150-450); RBC Distribution Width CV 16.6 % (11.6-14.6); RBC Distribution Width SD 63.3 fl (35.1-43.9); Red Blood Count 2.87 M/mm3 (4.6-6.2); White Blood Count 4.3 K/mm3 (4.4-11.0)
[2024-10-16 04:08] LABS: Anion Gap 9 (5-15); BUN 23 mg/dL (4-19); BUN/Creat Ratio 18.0 RATIO (10-20); Calcium,Total 7.8 mg/dL (7.6-11.0); Carbon Dioxide 22.4 mmol/L (21.0-32.0); Chloride 103 mmol/L (98-108); Estimated Creatinine Clearance 59.80 ml/min (50-250); Glucose 162 mg/dL (70-99); Potassium 4.4 mmol/L (3.3-5.1)
[2024-10-16] MEDS: Piperacil/Tazobactam 3.375 GM in 0.9% Normal Saline (50mL MB+) 50 ML IV ×3 (06:02→20:56)
--- NOTE | 2024-10-16 08:04 | PCM.PN.HOSP ---
Reason for Visit Chief Complaint: Shortness of breath Subjective Subjective Developed right-sided chest pain today it was worse with inspiration. Objective Data Objective Data Vital Signs: Vital Signs Temp Pulse Resp BP Pulse Ox O2 Del Method O2 Flow Rate 36.6 C 64 14 117/87 H 99 Nasal Cannula 4 10/16/24 03:00 10/16/24 07:28 10/16/24 07:00 10/16/24 07:00 10/16/24 07:23 10/16/24 07:23 10/16/24 07:23 FiO2 55 10/15/24 09:00 Oxygen Flow Rate (L/min) 4 Oxygen Delivery Method Nasal Cannula Weight: 70.1 kg Body Mass Index (BMI) 22.1 Intake & Output: Intake and Output for Last 24 Hours 10/14/24 10/15/24 10/16/24 23:59 23:59 23:59 Intake Total 3220.07 / 3248.17 1663.72 / 1916.97 303.25 / 303.25 Output Total 1650 / 1650 850 / 1000 900 / 900 Balance 1570.07 / 1598.17 813.72 / 916.97 -596.75 / -596.75 Lab / Micro Data 10/16/24 03:30 10/16/24 03:30 Labs: Laboratory Results - last 24 hr 10/15/24 07:53: POC Glucose 205 H 10/15/24 09:40: Vancomycin Trough 17.1 H 10/15/24 11:20: POC Glucose 205 H 10/15/24 16:16: POC Glucose 219 H 10/15/24 21:07: POC Glucose 198 H 10/16/24 03:30: WBC 4.3 L, RBC 2.87 L, Hgb 9.5 L, Hct 29.6 L, MCV 103.1 H, MCH 33.1 H, MCHC 32.1, RDW Std Deviation 63.3 H, RDW Coeff of Kalpana 16.6 H, Plt Count 112 L, MPV 12.2 H, Immature Gran % (Auto) 0.500, Neut % (Auto) 66.7, Lymph % (Auto) 18.5 L, [place] % (Auto) 11.3 H, Eos % (Auto) 1.8, Baso % (Auto) 1.2 H, Absolute Neuts (auto) 2.9, Absolute Lymphs (auto) 0.80 L, Nucleated RBC % 0, Sodium 135, Potassium 4.4, Chloride 103, Carbon Dioxide 22.4, Anion Gap 9, BUN 23 H, Creatinine 1.27 H, Estim Creat Clear Calc 59.80, Est GFR (MDRD) Non-Af 64, BUN/Creatinine Ratio 18.0, Glucose 162 H, Calcium 7.8 Micro: Microbiology 10/13/24 23:50 Blood Culture (Wb) - Pic Blood Culture - Preliminary No growth in 48 hours. 10/13/24 20:50 Blood Culture (Wb) - Line Draw Blood Culture - Preliminary No growth in 48 hours. 10/13/24 20:50 Urine Catheter - Catheter Legionella Antigen - Final 10/13/24 20:50 Urine Catheter - Catheter Streptococcus pneumoniae Antigen (M - Final Radiography Diagnostic Testing: Radiology Impression Chest X-Ray 10/15/24 09:40 IMPRESSION: Relatively stable chest. Bilateral airspace disease and pleural effusions. Suspect infiltrate/airspace disease most prominent on the right. Reading Location: [id number] Physical Exam Narrative Reproducible right medial rib pain. Const alert and no apparent distress Constitutional Narrative: Up in chair. On nasal cannula. No respiratory distress. No conversational dyspnea. HEENT head/scalp atraumatic and moist oral mucous membranes Resp normal respiratory effort and no retractions Resp Narrative: Right lower lobe crackles Cardio regular rate, regular rhythm, S1 normal heart sound and S2 normal heart sound Cardio Narrative: 3/6 SOURAV noted. GI normal to inspection, nondistended, normoactive bowel sounds, soft to palpation and non-tender Extremity normal to inspection and full ROM Neuro Sensorium / Orientation: awake and alert Psych affect normal Assessment & Plan Assessment/Plan (1) Acute exacerbation of chronic heart failure: (2) Bilateral pleural effusion: PLAN: Plan Acute on chronic hypoxic respiratory failure due to acute exacerbation of heart failure reduced ejection fraction and bilateral pleural effusion plus minus pneumonia Had been on Airvo but since weaned down to 4 L nasal cannula. Acute HFrEF With transudative pleural effusions. Has known EF of 35 to 40% from echo in June 2024. Had right sided thoracentesis 10/13 with removal of about 1.78 L of fluid. Continue furosemide drip ANKIT inhibitors/ARB, beta-blockers held in light of hypotension. Cardiology consulted Critical AV stenosis of bioprosthetic heart valve. Discussed with Dr. Pearson: He recommends transfer to [facility] to have valve replacement as it is concerning that this patient may have recurrent heart failure exacerbations. Dr. Pearson may reach out to her match maker in regards to expediting transfer. In the interim, patient will be transferred to the progressive care unit status. And having spoken to the transfer center earlier about another patient, they are currently requesting waiting 24 hours before reinitiating transfer request. So we will formally request on the nin of the patient is still here at that time at approximately 1100. Suspected gram-negative pneumonia Multifocal pneumonia primarily right sided in the right middle and right lower lobe. Started on empiric vancomycin and pip-tazo. Chest CT done showed a large right-sided pneumonia. He is now on IV vancomycin and Zosyn. Blood cultures pending. Strep and Legionella antigens negative. Shock likely hypovolemic versus septic Likely hypovolemic status post thoracentesis. Was temporarily on norepinephrine but since weaned off. Elevated troponin suspect demand ischemia secondary to shock, heart failure. Patient with chest pain today but it was reproducible and was right-sided. Secondary to costochondritis and not the cause of the elevated troponin nor concerning from a cardiac perspective. Chronic medical conditions: History of chronic pancreatitis in the setting of chronic alcohol use disorder: CT of the abdomen in the ED was consistent with diffuse pancreatic calcifications: Consistent with chronic (not acute as documented previously) pancreatitis. On Creon Type 2 diabetes mellitus, on insulin sliding scale. Checks ACHS. History of sick sinus syndrome: Has pacemaker in situ GERD: PPI History of abdominal aortic aneurysm: Stable. Follow-up with vascular surgery on outpatient basis. Nicotine dependence: Counseled to quit. Nicotine patch as needed DVT prophylaxis: SCDs, lovenox Charges/Coding Visit Charges Inpatient E&M: 89116 [facility] Hosp L3
[2024-10-16] MEDS: Vancomycin HCl 750 MG in 0.9% Normal Saline (250mL Bag) 250 ML 250 MG IV ×2 (08:20→08:35)
[2024-10-16] MEDS: Creon 24,000 unit DR Capsule 1 CAP PO (08:23)
--- NOTE | 2024-10-16 08:30 | PN.CARD_ITS ---
Subjective Subjective Patient resting comfortably in the third-degree position in bed. Denies any overt shortness of breath at rest. He is status post 1.7 L pleural fluid removal. He is also had paracentesis done. Patient remains on IV drip Lasix. Patient's last echocardiogram June 2024 that showed an aortic valve gradient mean of 40 mmHg and a peak gradient of 60 mmHg. The patient has continued to have issues with volume retention with pleural and peritoneal effusions. He also has bilateral lower extremity edema as well as upper extremity edema. Objective Data Vital Signs: Vital Signs Temp Pulse Resp BP Pulse Ox O2 Del Method O2 Flow Rate 97.8 F 64 14 117/87 H 99 Nasal Cannula 4 10/16/24 03:00 10/16/24 07:28 10/16/24 07:00 10/16/24 07:00 10/16/24 07:23 10/16/24 07:23 10/16/24 07:23 FiO2 55 10/15/24 09:00 Oxygen Flow Rate (L/min) 4 Oxygen Delivery Method Nasal Cannula Weight: 154 lb 8.705 oz Body Mass Index (BMI) 22.1 Intake & Output: Intake and Output for Last 24 Hours 10/14/24 10/15/24 10/16/24 23:59 23:59 23:59 Intake Total 3220.07 / 3248.17 1663.72 / 1916.97 303.25 / 303.25 Output Total 1650 / 1650 850 / 1000 900 / 900 Balance 1570.07 / 1598.17 813.72 / 916.97 -596.75 / -596.75 Lab / Micro Data 10/16/24 03:30 10/16/24 03:30 Labs: Laboratory Results - last 24 hr 10/15/24 09:40: Vancomycin Trough 17.1 H 10/15/24 11:20: POC Glucose 205 H 10/15/24 16:16: POC Glucose 219 H 10/15/24 21:07: POC Glucose 198 H 10/16/24 03:30: WBC 4.3 L, RBC 2.87 L, Hgb 9.5 L, Hct 29.6 L, MCV 103.1 H, MCH 33.1 H, MCHC 32.1, RDW Std Deviation 63.3 H, RDW Coeff of Kalpana 16.6 H, Plt Count 112 L, MPV 12.2 H, Immature Gran % (Auto) 0.500, Neut % (Auto) 66.7, Lymph % (Auto) 18.5 L, [place] % (Auto) 11.3 H, Eos % (Auto) 1.8, Baso % (Auto) 1.2 H, Absolute Neuts (auto) 2.9, Absolute Lymphs (auto) 0.80 L, Nucleated RBC % 0, Sodium 135, Potassium 4.4, Chloride 103, Carbon Dioxide 22.4, Anion Gap 9, BUN 23 H, Creatinine 1.27 H, Estim Creat Clear Calc 59.80, Est GFR (MDRD) Non-Af 64, BUN/Creatinine Ratio 18.0, Glucose 162 H, Calcium 7.8 Micro: Microbiology 10/13/24 23:50 Blood Culture (Wb) - Pic Blood Culture - Preliminary No growth in 48 hours. 10/13/24 20:50 Blood Culture (Wb) - Line Draw Blood Culture - Preliminary No growth in 48 hours. Rhythm Strip Rhythm Strip: Sinus Rhythm Rate: 92 Cardiology Labs/Tests 10/16/24 03:30: WBC 4.3 L, RBC 2.87 L, Hgb 9.5 L, Hct 29.6 L, MCV 103.1 H, MCH 33.1 H, MCHC 32.1, Plt Count 112 L, MPV 12.2 H, Immature Gran % (Auto) 0.500, Neut % (Auto) 66.7, Lymph % (Auto) 18.5 L, [place] % (Auto) 11.3 H, Eos % (Auto) 1.8, Baso % (Auto) 1.2 H, Absolute Neuts (auto) 2.9, Nucleated RBC % 0, Sodium 135, Potassium 4.4, Chloride 103, Carbon Dioxide 22.4, Anion Gap 9, BUN 23 H, C reatinine 1.27 H, Est GFR (MDRD) Non-Af 64, BUN/Creatinine Ratio 18.0, Glucose 162 H, Calcium 7.8 Rhythm: EKG: ECHO: Stress Test: Cardiac Cath: PCI: CT Surgery: Holter monitor: EPS: PPM: CXR: Chest CT Scan: Radiography Diagnostic Testing: Radiology Impression Chest X-Ray 10/15/24 09:40 IMPRESSION: Relatively stable chest. Bilateral airspace disease and pleural effusions. Suspect infiltrate/airspace disease most prominent on the right. Reading Location: [facility] Physical Exam Narrative Cachectic appearing white male. Const alert and oriented x3 HEENT normocephalic Eyes EOMs intact bilaterally Neck no JVD Neck Narrative: Murmur radiates to the base of the neck. Chest Chest: midline sternotomy incision and left pectoral incision Cardio Rate: regular rate Rhythm: regular rhythm Heart Sounds: S1 normal, murmur systolic III/ harsh holo left sternal border and right sternal border to the neck and prosthetic sounds crisp prosthetic S2 (Prominent S2); Negative for click or gallop GI soft to palpation GI Narrative: Mildly distended Extremity General Extremity: edema bilateral lower extremity Details: mild Psych mental status grossly normal Assessment & Plan Assessment/Plan (1) Acute exacerbation of chronic heart failure: PLAN: Patient has a history of chronic LV dysfunction EF in the 30 to 35% range. He also has a history of valvular heart disease with significant aortic stenosis status post AVR in 2005 with a mechanical prosthesis this was replaced in 2017 with a bioprosthetic prosthesis. That prosthesis now has significant stenosis. Patient had pleural and peritoneal fluid removed. He is diffusely edematous. Renal function remains adequate. Creatinine 1.27 today. GFR is 64. I did discuss with the patient in detail about the potential valve in valve TAVR to correct his bioprosthetic aortic stenosis. We will recheck his echocardiogram today. If he does decide to proceed with the evaluation for potential TAVR he would need to be transferred to the [facility] where he has had his previous surgical intervention done. We can work to arrange that hospital hospital transfer if he decides to proceed. He does have complicating factors with his chronic pancreatitis, cirrhosis, and a history of some inability to comply with his medical therapies in the past. (2) Chronic pancreatitis: QUALIFIERS: Pancreatitis type: alcohol induced Qualified Code(s): K86.0 - Alcohol-induced chronic pancreatitis PLAN: Presumed to be alcohol induced pancreatitis. He tells me today he is not drinking. Further treatment options will be per the primary service. (3) Essential hypertension: PLAN: Patient's blood pressure is well-controlled in the hospital. He actually had some transient hypotension after 1.7 L of fluid was removed from his pleural spaces. (4) Cardiac pacemaker in situ: PLAN: Patient has a DDD pacemaker in place that was implanted in 2017 at the time of his second AVR. Telemetry shows normal sinus rhythm at 92 bpm. PLAN: Plan 1. Continue with aggressive diuresis. 2. Evaluate the patient for nutritional status to improve it is much as possible. 3. Patient to decide if he wants to pursue further evaluation for potential TAVR intervention on the bioprosthetic valve. 4. Will obtain limited echocardiogram to evaluate aortic valve gradients and LV function. Charges/Coding Visit Charges Inpatient E&M: 43206 Subs Hosp L2
[2024-10-16] MEDS: Thiamine Hydrochloride 100 MG Tablet PO (08:38)
--- NOTE | 2024-10-16 08:41 | ECHOLC_ITS ---
Reason For Study Reason For Study: valve eval Procedure This was a limited 2D transthoracic echocardiogram. Exam performed portable in ICU/CCU. Left Ventricle Normal LV size. Moderate concentric left ventricular hypertrophy. Moderate to severe LV systolic dysfunction. Estimated LVEF 35%. At least stage I diastolic dysfunction. Right Ventricle ICD or pacer leads identified within the right ventricle. Atria The left atrium is severely enlarged. Normal right atrium. Mitral Valve Mild mitral annular calcification. Mild (1+) mitral valve insufficiency. Tricuspid Valve Normal tricuspid valve. Aortic Valve Calcific aortic valve with severe aortic valve stenosis. Mean peak gradient 47 mmHg. Pulmonic Valve The pulmonic valve is not well visualized. Great Vessels Normal sized aortic root. Pericardium/Pleural No pericardial effusion. Left pleural effusion. MMode/2D Measurements & Calculations LVIDd: 4.7 cm IVSd: 1.6 cm LVOT diam: 2.0 cm LVIDs: 4.3 cm LVPWd: 1.4 cm LVOT area: 3.0 cm2 FS: 7.4 % LA dimension: 5.1 cm LVAd ap4: 30.6 cm2 SV(MOD-sp4): 36.2 ml LVLd ap4: 8.8 cm SI(MOD-sp4): 19.4 ml/m2 EDV(MOD-sp4): 95.2 ml EDV(sp4-el): 90.9 ml LVAs ap4: 22.9 cm2 LVLs ap4: 8.1 cm ESV(MOD-sp4): 59.0 ml ESV(sp4-el): 54.7 ml EF(MOD-sp4): 38.0 % EF(sp4-el): 39.9 % SV(sp4-el): 36.3 ml Doppler Measurements & Calculations Ao V2 max: 415.1 cm/sec LV V1 max: 149.8 cm/sec SV(LVOT): 92.3 ml Ao max P.1 mmHg LV V1 max P.1 mmHg Ao V2 mean: 327.4 cm/sec LV V1 mean P.9 mmHg Ao mean P.8 mmHg LV V1 mean: 113.9 cm/sec Ao V2 VTI: 93.5 cm LV V1 VTI: 30.8 cm AV (velocity ratio): 0.33 SAY(I,D): 0.99 cm2 SAY(V,D): 1.1 cm2 ECHO/Echo Limited w/Contrast Interpretation Summary Moderate concentric left ventricular hypertrophy. Moderate to severe LV systolic dysfunction. Estimated LVEF 35%. At least stage I diastolic dysfunction. The left atrium is severely enlarged. Mild mitral annular calcification. Mild (1+) mitral valve insufficiency. Calcific aortic valve with severe aortic valve stenosis. Mean peak gradient 47 mmHg. Left pleural effusion. Ordering Physician: Denys Pearson MD Referring Physician: griffin ortiz Performed By: Laina Castellon RCS
--- NOTE | 2024-10-16 09:53 | PCM.PN.TICU ---
Objective Data Objective Data Vital Signs: Vital Signs Last response Temperature 36.3 C L 10/16/24 08:00 Temperature Source Temporal 10/16/24 08:00 Pulse Rate 103 H 10/16/24 09:00 Pulse Strength Weak (1+) 10/16/24 08:46 Respiratory Rate 25 H 10/16/24 09:00 Respiratory Effort Normal, Non-Labored 10/16/24 03:40 Respiratory Depth Normal 10/16/24 03:40 Respiratory Pattern Normal 10/16/24 03:40 Blood Pressure 104/86 H 10/16/24 09:00 Blood Pressure Mean 92 10/16/24 09:00 Blood Pressure Source Monitor 10/16/24 09:00 Blood Pressure Position Semi-Fowlers 10/16/24 09:00 Blood Pressure Location Left Arm 10/16/24 09:00 Pulse Ox 92 10/16/24 09:00 Oxygen Delivery Method Nasal Cannula 10/16/24 09:00 Oxygen Flow Rate (L/min) 4 10/16/24 09:00 Fraction of Inspired Oxygen (FIO2) 55 10/15/24 09:00 I&O: I&O Last 24 Hours 10/15/24 10/15/24 10/16/24 11:59 23:59 11:59 Intake Total 664.34 / 1916.97 999.38 / 1916.97 630.75 / 630.75 Output Total 500 / 1000 350 / 1000 1100 / 1100 Balance 164.34 / 916.97 649.38 / 916.97 -469.25 / -469.25 I&O: Total Stay 10/12/24 09:47 thru 10/16/24 09:43 Intake Total 7684.05 Output Total 6830 Balance 854.05 Current Meds Ordered / Administered: Current meds ordered / Administered Generic Name Dose Route Start Last Admin Trade Name Freq PRN Reason Stop Dose Admin Acetaminophen 650 mg 10/12/24 16:43 10/15/24 21:12 Acetaminophen 325 Mg Tablet PO 650 mg Q6H PRN PRN Administration Pain 1-10 Or Fever >100.7 Albuterol Sulfate 2.5 mg 10/12/24 16:43 Albuterol 2.5 Mg/3 Ml Vial.Neb. INHALATION Q2H PRN PRN SOB &/OR WHEEZING Atorvastatin Calcium 10 mg 10/13/24 10:00 10/15/24 08:21 Atorvastatin Calcium 10 Mg Tablet PO 10 mg DAILY KUNAL Administration Enoxaparin Sodium 40 mg 10/15/24 14:00 10/15/24 14:28 Enoxaparin 40 Mg/0.4 Ml Syringe SC 40 mg DAILY KUNAL Administration Ferrous Sulfate 325 mg 10/14/24 12:00 10/15/24 14:00 Ferrous Sulfate 325 Mg Tablet PO 325 mg DAILY@1200 KUNAL Administration Folic Acid 1 mg 10/13/24 08:00 10/16/24 08:38 Folic Acid 1 Mg Tablet PO 1 mg DAILY@0800 KUNAL Administration Gabapentin 300 mg 10/13/24 10:00 10/15/24 08:27 Gabapentin 300 Mg Capsule PO 300 mg DAILY KUNAL Administration Glucagon 1 mg 10/12/24 16:43 Glucagon 1 Mg/Ml Syringe IM X1 PRN HYPOGLYCEMIA Protocol Dextrose 250 mls @ 0 mls/hr 10/12/24 16:43 Dextrose 10%-Water IV .Q0M PRN HYPOGLYCEMIA Protocol As Directed Sodium Chloride 250 mls @ 15 mls/hr 10/12/24 16:44 IV .[id number] PRN Saline Flush Sodium Chloride 250 mls @ 15 mls/hr 10/12/24 16:44 IV .[id number] PRN Additional IVPB Infusion Norepinephrine Bitartrate 8 mg 250 mls @ 9.375 mls/hr 10/13/24 19:50 10/15/24 19:50 / Sodium Chloride CONT INF Infused .[id number] KUNAL Titration Protocol 5 MCG/MIN Vancomycin IV-PHARMACY TO DOSE 500 mls @ 250 mls/hr 10/13/24 20:44 1 each/ Sodium Chloride IV X1 PRN Rx to Dose Protocol Piperacillin Sod/Tazobactam 50 mls @ 12.5 mls/hr 10/13/24 21:00 10/16/24 06:02 Sod 3.375 gm/ Sodium Chloride IV 12.5 mls/hr Q8 KUNAL Administration Vancomycin HCl 750 mg/ Sodium 265 mls @ 250 mls/hr 10/14/24 09:30 10/16/24 09:42 Chloride IV Infused Q12H KUNAL Infusion Furosemide 500 mg/ N/A 50 mls @ 0.5 mls/hr 10/15/24 07:30 10/16/24 00:00 CONT INF 5 mg/hr .Q100H KUNAL 0.5 mls/hr Infusion 5 MG/HR Insulin Human Lispro 0 unit 10/12/24 18:00 10/16/24 08:22 Insulin Lispro 100 Unit/Ml Insuln.Pen SC 1 units ACHS KUNAL Administration Protocol Melatonin 10 mg 10/12/24 16:43 10/15/24 22:28 Melatonin 10 Mg Tablet PO 10 mg QHS PRN PRN Administration INSOMNIA Midodrine 10 mg 10/13/24 19:17 10/16/24 08:38 Midodrine Hcl 5 Mg Tablet PO 10 mg TIDCM [facility] Administration Morphine Sulfate 2 mg 10/12/24 16:43 10/16/24 03:34 Morphine 2 Mg/Ml Syringe IV 2 mg Q3H PRN PRN Administration Pain Score 6-10 Nutritional Formula (Lactose Free) 120 ml 10/16/24 12:00 Glucerna Shake 120 Ml Liquid PO TIDCM [facility] Ondansetron HCl 4 mg 10/12/24 16:43 10/15/24 10:59 Ondansetron 4 Mg/2 Ml Vial IV 4 mg Q8H PRN PRN Administration NAUSEA/VOMITING Oxycodone HCl 2.5 mg 10/12/24 16:43 10/15/24 21:13 Oxycodone 5 Mg Tablet PO 2.5 mg Q4H PRN PRN Administration Pain Score 4-10 Pancrelipase 1 cap 10/12/24 17:00 10/16/24 08:[address] Capsule PO 1 cap BIDCM [facility] Administration Pantoprazole Sodium 40 mg 10/12/24 22:00 10/15/24 21:08 Pantoprazole Sodium 40 Mg Tablet PO 40 mg BID [facility] Administration Polyethylene Glycol 17 gm 10/15/24 10:00 Polyethylene Glycol 3350 17 Gm Packet PO DAILY PRN PRN Constipation Senna/Docusate Sodium 2 tablet 10/12/24 16:43 10/12/24 21:16 Senna/Docusate Sodium 1 Tablet PO 2 tablet BID PRN PRN Administration Constipation Sodium Chloride 10 - 40 ml 10/12/24 16:44 10/16/24 08:37 0.9% Saline Lock 10 Ml Syringe IV 10 ml UD PRN Administration SALINE FLUSH Thiamine HCl 100 mg 10/13/24 08:00 10/16/24 08:38 Thiamine Hydrochloride 100 Mg Tablet PO 100 mg DAILYCM KUNAL Administration Vancomycin Protocol 1 lab 10/16/24 20:00 Vancomycin Trough/Random Due MC 10/16/24 22:00 DAILY [facility] Lab / Micro Data Attestation: I reviewed the patient's lab results. 10/16/24 03:30 10/16/24 03:30 Labs: Laboratory Results - last 24 hr 10/15/24 09:40: Vancomycin Trough 17.1 H 10/15/24 11:20: POC Glucose 205 H 10/15/24 16:16: POC Glucose 219 H 10/15/24 21:07: POC Glucose 198 H 10/16/24 03:30: WBC 4.3 L, RBC 2.87 L, Hgb 9.5 L, Hct 29.6 L, MCV 103.1 H, MCH 33.1 H, MCHC 32.1, RDW Std Deviation 63.3 H, RDW Coeff of Kalpana 16.6 H, Plt Count 112 L, MPV 12.2 H, Immature Gran % (Auto) 0.500, Neut % (Auto) 66.7, Lymph % (Auto) 18.5 L, [place] % (Auto) 11.3 H, Eos % (Auto) 1.8, Baso % (Auto) 1.2 H, Absolute Neuts (auto) 2.9, Absolute Lymphs (auto) 0.80 L, Nucleated RBC % 0, Sodium 135, Potassium 4.4, Chloride 103, Carbon Dioxide 22.4, Anion Gap 9, BUN 23 H, Creatinine 1.27 H, Estim Creat Clear Calc 59.80, Est GFR (MDRD) Non-Af 64, BUN/Creatinine Ratio 18.0, Glucose 162 H, Calcium 7.8 10/16/24 08:15: POC Glucose 167 H Micro: Microbiology 10/13/24 23:50 Blood Culture (Wb) - Pic Blood Culture - Preliminary No growth in 48 hours. 10/13/24 20:50 Blood Culture (Wb) - Line Draw Blood Culture - Preliminary No growth in 48 hours. Rhythm Strip Rhythm Strip: Sinus Rhythm Rate: 92 Imaging Radiology Impression Chest X-Ray 10/15/24 09:40 IMPRESSION: Relatively stable chest. Bilateral airspace disease and pleural effusions. Suspect infiltrate/airspace disease most prominent on the right. Reading Location: [facility] Assessment and Plan . Assessment and plan: # Hypotension - multi-factorial; resolved # Acute on chronic hypoxic respiratory failure # Bilateral infiltrate - pulmonary edema # Bilateral pleural effusions R > L - s/p thora with ~1.8L fluid removed. 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 - severe noted on recent TTE # SSS s/p PM # Chronic pancreatitis on creon # Chronic anemia # Thrombocytopenia # AAA # h/o EtOH abuse # Tobacco abuse / emphysema PLAN: -cont lasix gtt as hemodynamics allow -plan for limited TTE; if gradients remain elevated plan is to consider transfer to [facility] for TAVR workup -check MRSA swab and stop vanc if negative -pleural fluid studies consistent with transudate -liver biopsy in August consistent with congestive hepatopathy -follow renal function -pancreatic insufficiency: cont creon FEN/GI: PO as tolerated; calorie count, creeler following Proph DVT/GI: SCDs, anticoagulation held Code status: DNR/DNI Critical Care Time: 31 minutes The entirety of this encounter was done via Telemedicine Physical Exam Narrative G- A&O x 3, NAD ENT- anicteric, no LAD/TM CV- rrr, nl s1 s2, + m radiating to neck L- CTA, decreased in bases, good effort/air movement Ab- s nt nd + bs, + asciates Ext- + edema Neuro- no focal motor/sensory deficits Const alert and oriented x3 Subjective Subjective No acute events. Overall feeling better but has not been moving around much. Limited appetite.
[2024-10-16] MEDS: Lactobacillis Acidophilus 1 CAP PO ×2 (10:14→20:39)
--- NOTE | 2024-10-16 10:53 | CASEMGMT ---
Insurance review for hospitals In-network with?M[employer] insurance if transfer is recommended is as follows: [facility], [facility], [place], [facility], [facility], [facility], , [place], [facility], [facility], and [place].
[2024-10-16] MEDS: Glucerna Shake 120 ML LIQUID PO (12:52)
--- NOTE | 2024-10-16 14:28 | NURSING ---
report called to ELIS Rader on PCU
[2024-10-16 15:19] LABS: Pathologist Comment/Body Fluid Reviewed
[2024-10-17] VITALS (8 sets, daily range): BP systolic 89–101; BP diastolic 72–84; PULSE 66–98; RESP 16–18; TEMP 35.5–36.6; O2SAT 94–96; BMI 22.2
[2024-10-17] MEDS: Piperacil/Tazobactam 3.375 GM in 0.9% Normal Saline (50mL MB+) 50 ML IV ×2 (04:48→14:01)
[2024-10-17 05:52] LABS: Hematocrit 30.6 % (40-54); Hemoglobin 9.7 g/dL (13.0-16.5); Immature Granulocytes Count 0.010 X10^3/uL (0.0-0.0); Mean Corp Hgb Conc 31.7 g/dL (32-36); Mean Corpuscular Volume 102.7 fL (80-94); Mean Platelet Vol. 11.9 fl (6.2-12.0); NRBC Flagged by Analyzer 0 % (0-5); POSITIVE DIFFERENTIAL YES; Platelet Count 114 K/mm3 (150-450); RBC Distribution Width CV 16.7 % (11.6-14.6); RBC Distribution Width SD 62.5 fl (35.1-43.9); Red Blood Count 2.98 M/mm3 (4.6-6.2); White Blood Count 3.7 K/mm3 (4.4-11.0)
[2024-10-17 05:56] LABS: Differential Indicated SCAN CRITERIA MET
[2024-10-17 06:27] LABS: Anion Gap 10 (5-15); BUN 23 mg/dL (4-19); BUN/Creat Ratio 15.7 RATIO (10-20); Calcium,Total 8.0 mg/dL (7.6-11.0); Carbon Dioxide 22.6 mmol/L (21.0-32.0); Chloride 103 mmol/L (98-108); Estimated Creatinine Clearance 52.52 ml/min (50-250); Glucose 187 mg/dL (70-99); Potassium 4.7 mmol/L (3.3-5.1)
--- NOTE | 2024-10-17 08:35 | PCM.PN.CARD ---
Subjective Subjective Patient resting company to come position in bed he remains on Lasix IV drip. He still has lower extremity edema and requiring supplemental oxygen. The patient has decided that he does want to go to [place] for further evaluation for possible TAVR valve in valve procedure. Objective Data Vital Signs: Vital Signs Temp Pulse Resp BP Pulse Ox O2 Del Method O2 Flow Rate 97.8 F 93 18 98/77 95 Nasal Cannula 2 10/17/24 03:32 10/17/24 03:32 10/17/24 03:32 10/17/24 03:32 10/17/24 08:12 10/17/24 08:12 10/17/24 08:12 FiO2 55 10/15/24 09:00 Oxygen Flow Rate (L/min) 2 Oxygen Delivery Method Nasal Cannula Weight: 154 lb 15.759 oz Body Mass Index (BMI) 22.2 Intake & Output: Intake and Output for Last 24 Hours 10/15/24 10/16/24 10/17/24 23:59 23:59 23:59 Intake Total 1663.72 / 1916.97 1120.75 / 1120.75 50 / 50 Output Total 850 / 1000 1100 / 1220 120 / 120 Balance 813.72 / 916.97 20.75 / -99.25 -70 / -70 Lab / Micro Data 10/17/24 05:25 10/17/24 05:25 Labs: Laboratory Results - last 24 hr 10/13/24 13:24: Fl Pathologist Comment Reviewed 10/16/24 08:15: POC Glucose 167 H 10/16/24 11:18: POC Glucose 234 H 10/16/24 17:09: POC Glucose 288 H 10/16/24 20:34: POC Glucose 296 H 10/17/24 05:25: WBC 3.7 L, RBC 2.98 L, Hgb 9.7 L, Hct 30.6 L, MCV 102.7 H, MCH 32.6 H, MCHC 31.7 L, RDW Std Deviation 62.5 H, RDW Coeff of Kalpana 16.7 H, Plt Count 114 L, MPV 11.9, Immature Gran % (Auto) 0.300, Neut % (Auto) 70.4 H, Lymph % (Auto) 11.6 L, [place] % (Auto) 13.4 H, Eos % (Auto) 2.4, Baso % (Auto) 1.9 H, Absolute Neuts (auto) 2.6, Absolute Lymphs (auto) 0.43 L, Nucleated RBC % 0, Sodium 135, Potassium 4.7, Chloride 103, Carbon Dioxide 22.6, Anion Gap 10, BUN 23 H, Creatinine 1.45 H, Estim Creat Clear Calc 52.52, Est GFR (MDRD) Non-Af 54 L, BUN/Creatinine Ratio 15.7, Glucose 187 H, Calcium 8.0 10/17/24 06:45: POC Glucose 163 H Micro: Microbiology 10/16/24 10:25 Nasal Secretion MRSA (PCR) - Final 10/13/24 23:50 Blood Culture (Wb) - Pic Blood Culture - Preliminary No growth in 48 hours. 10/13/24 20:50 Blood Culture (Wb) - Line Draw Blood Culture - Preliminary No growth in 48 hours. Rhythm Strip Rhythm Strip: Sinus Rhythm Rate: 86 Cardiology Labs/Tests 10/17/24 05:25: WBC 3.7 L, RBC 2.98 L, Hgb 9.7 L, Hct 30.6 L, MCV 102.7 H, MCH 32.6 H, MCHC 31.7 L, Plt Count 114 L, MPV 11.9, Immature Gran % (Auto) 0.300, Neut % (Auto) 70.4 H, Lymph % (Auto) 11.6 L, [place] % (Auto) 13.4 H, Eos % (Auto) 2.4, Baso % (Auto) 1.9 H, Absolute Neuts (auto) 2.6, Nucleated RBC % 0, Sodium 135, Potassium 4.7, Chloride 103, Carbon Dioxide 22.6, Anion Gap 10, BUN 23 H, Creatinine 1.45 H, Est GFR (MDRD) Non-Af 54 L, BUN/Creatinine Ratio 15.7, Glucose 187 H, Calcium 8.0 Rhythm: EKG: ECHO: Stress Test: Cardiac Cath: PCI: CT Surgery: Holter monitor: EPS: PPM: CXR: Chest CT Scan: Radiography Diagnostic Testing: Radiology Impression Echocardiogram 10/16/24 08:41 Interpretation Summary Moderate concentric left ventricular hypertrophy. Moderate to severe LV systolic dysfunction. Estimated LVEF 35%. At least stage I diastolic dysfunction. The left atrium is severely enlarged. Mild mitral annular calcification. Mild (1+) mitral valve insufficiency. Calcific aortic valve with severe aortic valve stenosis. Mean peak gradient 47 mmHg. Left pleural effusion. Ordering Physician: Denys Pearson MD Referring Physician: griffin ortiz Performed By: Laina Castellon RCS Physical Exam Const alert and oriented x3 HEENT normocephalic Eyes EOMs intact bilaterally Neck no carotid bruits Neck Narrative: Murmur radiates to his neck. Chest Chest Narrative: Thin cachectic appearing chest wall. Resp normal respiratory effort Auscultation: crackles bilateral base Cardio Rate: regular rate Rhythm: regular rhythm Heart Sounds: S1 normal, S2 normal and murmur systolic III/ harsh holo left sternal border, sternal notch and neck; Negative for click or gallop Extremity General Extremity: edema bilateral lower extremity Details: mild Psych mental status grossly normal Assessment & Plan Assessment/Plan (1) Acute exacerbation of chronic heart failure: PLAN: This is felt to be related to his progressive bioprosthetic valve aortic stenosis. He is responding to IV Lasix drip renal function remains acceptable with a creatinine of 1.45 and GFR 54. The patient has now decided he wants to proceed with a evaluation at the [facility] for possible valve in valve TAVR. He is status post 2 prior aortic surgeries with mechanical AVR originally that lasted about 10 years this was replaced with a bovine prosthesis in 2017. This has now progressed to severe aortic bioprosthetic stenosis. EF remained stable in the 35% range. (2) History of aortic valve replacement with bioprosthetic valve: PLAN: Patient's main aortic valve gradient is 47 mmHg on yesterday's exam with a hemoglobin 9.7. On the previous echo from June 2024 mean aortic valve gradient was 40 mmHg. The patient does have a history of cirrhosis, chronic pancreatitis, and a history of inability to comply with medications. The patient is now decided he wants to seek a second opinion through the [facility] where he had had his previous last aortic valve replacement with aortic aneurysm repair. This was in 2017. (3) Essential hypertension: PLAN: Blood pressure is well-controlled on his current medical therapy. (4) Chronic pancreatitis: QUALIFIERS: Pancreatitis type: alcohol induced Qualified Code(s): K86.0 - Alcohol-induced chronic pancreatitis PLAN: Patient denies any symptoms of his chronic pancreatitis this is managed by the primary service. (5) Protein-calorie malnutrition, severe: PLAN: Patient does have a history of malnutrition. On 10/15/2024 his total protein was 5.2 and albumin 2.8. Dietitians are seeing him and trying to improve his malnutrition. PLAN: Plan 1. Will arrange for the patient to be transferred to the [facility] for further evaluation for possible valve in valve TAVR. 2. Continue current medical therapy. Charges/Coding Visit Charges Inpatient E&M: 07889 Subs Hosp L2
--- NOTE | 2024-10-17 08:40 | PCM.PN.HOSP ---
Reason for Visit Chief Complaint: Shortness of breath Subjective Subjective No new issues. Objective Data Objective Data Vital Signs: Vital Signs Temp Pulse Resp BP Pulse Ox O2 Del Method O2 Flow Rate 36.6 C 93 18 98/77 95 Nasal Cannula 2 10/17/24 03:32 10/17/24 03:32 10/17/24 03:32 10/17/24 03:32 10/17/24 08:12 10/17/24 08:12 10/17/24 08:12 FiO2 55 10/15/24 09:00 Oxygen Flow Rate (L/min) 2 Oxygen Delivery Method Nasal Cannula Weight: 70.3 kg Body Mass Index (BMI) 22.2 Intake & Output: Intake and Output for Last 24 Hours 10/15/24 10/16/24 10/17/24 23:59 23:59 23:59 Intake Total 1663.72 / 1916.97 1120.75 / 1120.75 50 / 50 Output Total 850 / 1000 1100 / 1220 120 / 120 Balance 813.72 / 916.97 20.75 / -99.25 -70 / -70 Lab / Micro Data 10/17/24 05:25 10/17/24 05:25 Labs: Laboratory Results - last 24 hr 10/13/24 13:24: Fl Pathologist Comment Reviewed 10/16/24 08:15: POC Glucose 167 H 10/16/24 11:18: POC Glucose 234 H 10/16/24 17:09: POC Glucose 288 H 10/16/24 20:34: POC Glucose 296 H 10/17/24 05:25: WBC 3.7 L, RBC 2.98 L, Hgb 9.7 L, Hct 30.6 L, MCV 102.7 H, MCH 32.6 H, MCHC 31.7 L, RDW Std Deviation 62.5 H, RDW Coeff of Kalpana 16.7 H, Plt Count 114 L, MPV 11.9, Immature Gran % (Auto) 0.300, Neut % (Auto) 70.4 H, Lymph % (Auto) 11.6 L, [place] % (Auto) 13.4 H, Eos % (Auto) 2.4, Baso % (Auto) 1.9 H, Absolute Neuts (auto) 2.6, Absolute Lymphs (auto) 0.43 L, Nucleated RBC % 0, Sodium 135, Potassium 4.7, Chloride 103, Carbon Dioxide 22.6, Anion Gap 10, BUN 23 H, Creatinine 1.45 H, Estim Creat Clear Calc 52.52, Est GFR (MDRD) Non-Af 54 L, BUN/Creatinine Ratio 15.7, Glucose 187 H, Calcium 8.0 10/17/24 06:45: POC Glucose 163 H Micro: Microbiology 10/16/24 10:25 Nasal Secretion MRSA (PCR) - Final 10/13/24 23:50 Blood Culture (Wb) - Pic Blood Culture - Preliminary No growth in 48 hours. 10/13/24 20:50 Blood Culture (Wb) - Line Draw Blood Culture - Preliminary No growth in 48 hours. 10/13/24 20:50 Urine Catheter - Catheter Legionella Antigen - Final 10/13/24 20:50 Urine Catheter - Catheter Streptococcus pneumoniae Antigen (M - Final Radiography Diagnostic Testing: Radiology Impression Echocardiogram 10/16/24 08:41 Interpretation Summary Moderate concentric left ventricular hypertrophy. Moderate to severe LV systolic dysfunction. Estimated LVEF 35%. At least stage I diastolic dysfunction. The left atrium is severely enlarged. Mild mitral annular calcification. Mild (1+) mitral valve insufficiency. Calcific aortic valve with severe aortic valve stenosis. Mean peak gradient 47 mmHg. Left pleural effusion. Ordering Physician: Denys Pearson MD Referring Physician: griffin ortiz Performed By: Laina Castellon RCS Rhythm Strip Rhythm Strip: Sinus Rhythm Rate: 92 Physical Exam Const alert and no apparent distress HEENT head/scalp atraumatic and moist oral mucous membranes Resp normal respiratory effort and no retractions Cardio regular rate, regular rhythm, S1 normal heart sound and S2 normal heart sound GI normal to inspection, nondistended, normoactive bowel sounds, soft to palpation, non-tender and non-distended Extremity normal to inspection and full ROM Neuro Sensorium / Orientation: awake and alert Assessment & Plan Assessment/Plan (1) Acute exacerbation of chronic heart failure: (2) Bilateral pleural effusion: PLAN: Plan Acute on chronic hypoxic respiratory failure due to acute exacerbation of heart failure reduced ejection fraction and bilateral pleural effusion plus minus pneumonia Had been on Airvo but since weaned down to 4 L nasal cannula. Acute HFrEF With transudative pleural effusions. Echo shows an EF of 35%, severely enlarged LA. Severe aortic valve stenosis. Had right sided thoracentesis 10/13 with removal of about 1.78 L of fluid. With creatinine trending up, will dc furosemide gtt and change to bolus dosing. ANKIT inhibitors/ARB, beta-blockers held in light of hypotension. Discussed with Dr. Pearson: He recommends transfer to [facility] to have valve replacement as it is concerning that this patient may have recurrent heart failure exacerbations. Dr. Pearson may reach out to her flare man in regards to expediting transfer. In the interim, patient will be transferred to the progressive care unit status. And having spoken to the transfer center earlier about another patient, they are currently requesting waiting 24 hours before reinitiating transfer request. So we will formally request on the nin of the patient is still here at that time at approximately 1100. Suspected gram-negative pneumonia Multifocal pneumonia primarily right sided in the right middle and right lower lobe. Started on empiric vancomycin and pip-tazo. Chest CT done showed a large right-sided pneumonia. He is now on IV vancomycin and Zosyn. Blood cultures pending. Strep and Legionella antigens negative. Shock likely hypovolemic versus septic Likely hypovolemic status post thoracentesis. Was temporarily on norepinephrine but since weaned off. was not a candidate for 30cc/kg of IVF given his HFrEF Elevated troponin suspect demand ischemia secondary to shock, heart failure. Patient with chest pain today but it was reproducible and was right-sided. Secondary to costochondritis and not the cause of the elevated troponin nor concerning from a cardiac perspective. Chronic medical conditions: History of chronic pancreatitis in the setting of chronic alcohol use disorder: CT of the abdomen in the ED was consistent with diffuse pancreatic calcifications: Consistent with chronic (not acute as documented previously) pancreatitis. On Creon Type 2 diabetes mellitus, on insulin sliding scale. Checks ACHS. History of sick sinus syndrome: Has pacemaker in situ GERD: PPI History of abdominal aortic aneurysm: Stable. Follow-up with vascular surgery on outpatient basis. Nicotine dependence: Counseled to quit. Nicotine patch as needed DVT prophylaxis: SCDs, lovenox Disposition: pending transfer to [facility] main for evaluation of AV rereplacment. Dr. Pearson has kindly initiated this process. Charges/Coding Visit Charges Inpatient E&M: 84698 Subs Hosp L2
[2024-10-17] MEDS: Creon 24,000 unit DR Capsule 1 CAP PO ×2 (08:56→16:28)
[2024-10-17] MEDS: Thiamine Hydrochloride 100 MG Tablet PO (08:57)
[2024-10-17] MEDS: Lactobacillis Acidophilus 1 CAP PO ×2 (08:58→21:14)
[2024-10-17] MEDS: Glucerna Shake 120 ML LIQUID PO ×3 (10:14→16:34)
--- NOTE | 2024-10-17 20:47 | NURSING ---
Lasix gtt was stopped on previous shift by dayshift RN but not documented. This RN signed off on medication at begining of my shift but th medication was already off when this RN came on.
--- NOTE | 2024-10-17 21:30 | NURSING ---
This Rn spoke with [facility] and gave report on pt. Report given to Freddy GILLIS
--- NOTE | 2024-10-17 21:35 | NURSING ---
Transport here for pt. report given to EMS and pt to leave soon.
--- NOTE | 2024-10-17 23:00 | DS.PCM_ITS ---
Providers Date of Admission: 10/12/24 Primary Care Physician: Sigrid Call [facility], DO Consultations 10/13/24 18:35 Consult: Spa Associate / Pulmonary Medicine Routine Consulting Provider: Intensivists/Pulmonary Med Reason for Consult: hypotension EMERGENT Consult: No Notified: Yes Date Notified: 10/13/24 Time Notified: 19:35 Method of Notification: Text 10/15/24 07:27 Consult: Cardiology Routine Consulting Provider: Sonali Smyth Reason for Consult: acute on chronic HFrEF EMERGENT Consult: No Notified: Yes Date Notified: 10/15/24 Time Notified: 07:27 Method of Notification: Text Reason For Visit: HEART FAILURE EXACERBATION Diagnosis Discharge Diagnosis (1) Acute exacerbation of chronic heart failure: Status: Acute Code(s): I50.9 - Heart failure, unspecified (2) Bilateral pleural effusion: Status: Acute Code(s): J90 - Pleural effusion, not elsewhere classified Plan Acute on chronic hypoxic respiratory failure * due to acute exacerbation of heart failure reduced ejection fraction and bilateral pleural effusion plus minus pneumonia * Had been on Airvo but since weaned down to 4 L nasal cannula. Acute HFrEF * With transudative pleural effusions. * Echo shows an EF of 35%, severely enlarged LA. Severe aortic valve stenosis. * Had right sided thoracentesis 10/13 with removal of about 1.78 L of fluid. * With creatinine trending up, will dc furosemide gtt and change to bolus dosing. * ANKIT inhibitors/ARB, beta-blockers held in light of hypotension. * Pt transferred to [facility] on 10/17 Suspected gram-negative pneumonia * Multifocal pneumonia primarily right sided in the right middle and right lower lobe. Started on empiric vancomycin and pip-tazo. * Chest CT done showed a large right-sided pneumonia. He is now on IV vancomycin and Zosyn. * Blood cultures pending. Strep and Legionella antigens negative. Shock likely hypovolemic versus septic * Likely hypovolemic status post thoracentesis. Was temporarily on norepinephrine but since weaned off. * was not a candidate for 30cc/kg of IVF given his HFrEF Elevated troponin * suspect demand ischemia secondary to shock, heart failure. * Patient with chest pain today but it was reproducible and was right-sided. Secondary to costochondritis and not the cause of the elevated troponin nor concerning from a cardiac perspective. Chronic medical conditions: * History of chronic pancreatitis in the setting of chronic alcohol use disorder: CT of the abdomen in the ED was consistent with diffuse pancreatic calcifications: Consistent with chronic (not acute as documented previously) pancreatitis. On Creon * Type 2 diabetes mellitus, on insulin sliding scale. Checks ACHS. * History of sick sinus syndrome: Has pacemaker in situ * GERD: PPI * History of abdominal aortic aneurysm: Stable. Follow-up with vascular surgery on outpatient basis. * Nicotine dependence: Counseled to quit. Nicotine patch as needed DVT prophylaxis: SCDs, lovenox Disposition: pending transfer to [facility] main for evaluation of AV rereplacment. Dr. Pearson has kindly initiated this process. Medications at Discharge Home Medications atorvastatin 10 mg tablet 10 mg PO DAILY CHOLESTEROL 10/17/20 dapagliflozin propanediol 10 mg tablet (Farxiga) 10 mg PO DAILY DIABETES 09/30/21 multivitamin 1 tab PO DAILY SUPPLEMENT 11/11/21 gabapentin 300 mg capsule 300 mg PO DAILY NEUROPATHY 11/14/22 metformin 500 mg tablet,extended release 24 hr 500 mg PO DAILY DIABETES 11/15/22 folic acid 1 mg tablet 1 mg PO DAILY@0800 supplement #0 tabs 05/20/23 thiamine HCl (vitamin B1) 100 mg tablet (Vitamin B-1) 100 mg PO DAILYCM vitamin #0 tabs 05/20/23 pantoprazole 40 mg tablet,delayed release 40 mg PO BID reflux #60 tabs 06/27/23 ferrous sulfate 325 mg (65 mg iron) tablet (FeroSul) 325 mg PO DAILY supplement 06/30/24 spironolactone 25 mg tablet 25 mg PO DAILY diuretic 30 days #30 tabs 07/06/24 Held on 09/04/24. Instructions: Resume on 09/14/24. L.acidophil,salivari-Bifido bifidum-Strep thermoph 175 mg capsule 1 cap PO BID Probiotic 08/01/24 furosemide 20 mg tablet 40 mg (2 x 20 mg) PO DAILY 30 days #60 tabs 08/03/24 sacubitril 24 mg-valsartan 26 mg tablet (Entresto) 1 tab PO BID #60 tabs 08/03/24 hoanhz-noetdnwh-unkuiup 24,000-76,000-120,000 unit capsule,delayed rel (Creon) 1 cap PO BIDCM 08/29/24 metoprolol succinate 25 mg tablet,extended release 24 hr 25 mg PO DAILY blood pressure #30 tabs 10/12/24 OXYGEN - Supplemental ([facility] INFORMATIONAL USE ONLY) 10/17/24 Weight / BMI Weight Weight: 70.3 kg Body Mass Index (BMI) 22.2 ABG / Lab / Microbiology Data 10/17/24 05:25 10/17/24 05:25 Laboratory: Laboratory Results - last 24 hr 10/17/24 06:45: POC Glucose 163 H 10/17/24 12:10: POC Glucose 228 H 10/17/24 16:23: POC Glucose 256 H 10/17/24 21:13: POC Glucose 194 H Microbiology: Microbiology 10/16/24 10:25 Nasal Secretion MRSA (PCR) - Final 10/13/24 23:50 Blood Culture (Wb) - Pic Blood Culture - Preliminary No growth in 48 hours. 10/13/24 20:50 Blood Culture (Wb) - Line Draw Blood Culture - Preliminary No growth in 48 hours. 10/13/24 20:50 Urine Catheter - Catheter Legionella Antigen - Final 10/13/24 20:50 Urine Catheter - Catheter Streptococcus pneumoniae Antigen (M - Final D/C Instructions DC O2, CPAP, BIPAP Needs Home O2 Discharge instructions: No Meaningful Use Info Meaningful Use Meaningful Use Diagnoses (Choose all that apply): CHF CHF ANKIT/ARB ordered at discharge?: No Reason ANKIT/ARB not ordered?: Hypotension Documented LVEF (%): 35 Discharge Plan Admission Admit Date/Time: 10/12/24 16:09 Attending Provider: Valeriy Connell Primary Care Provider: Sigrid Call [facility] Consulting Providers: Diana Willoughby; Ashley Alvarado; Sonali Smyth; Vargas Strong; Alcides Tucker; Aramis Palacios; Barry Sheehan; Conrado Snyder; Aldo Castellano; [place]; Chen Merrill; Mundo Marcelino; Robinson Madrid; Suleman Denis; Meli Miles; Tiara Horowitz; Monisha Fontenot; Brigida,Yunier; Jose Pacheco; Marquez Elmore; Wilbert Lozano; Abdirahman Gardner; Vladimir Matson; Dwight Vora; Bronson Peterson; Patty Hendricks; Toni Dodge Discharge Orders/Prescriptions Prescriptions: No Action atorvastatin 10 mg tablet 10 mg PO DAILY dapagliflozin propanediol [Farxiga] 10 mg Tablet 10 mg PO DAILY multivitamin Tablet 1 tab PO DAILY gabapentin 300 mg Capsule 300 mg PO DAILY metformin 500 mg tablet extended release 24 hr 500 mg PO DAILY Patient Comments: PT STATES THEY TAKE THIS ONCE DAILY. pantoprazole 40 mg tablet,delayed release (DR/EC) 40 mg PO BID Qty: 60 0RF thiamine HCl (vitamin B1) [Vitamin B-1] 100 mg Tablet 100 mg PO DAILYCM Qty: 0 0RF folic acid 1 mg Tablet 1 mg PO DAILY@0800 Qty: 0 0RF ferrous sulfate [FeroSul] 325 mg (65 mg iron) tablet 325 mg PO DAILY spironolactone 25 mg Tablet 25 mg PO DAILY 30 Days Qty: 30 2RF L.acidoph,saliva-B.bif-S.therm 175 mg Capsule 1 cap PO BID sacubitril-valsartan [Entresto] 24-26 mg tablet 1 tab PO BID Qty: 60 0RF furosemide 20 mg Tablet 40 mg PO DAILY 30 Days Qty: 60 2RF Creon 24,000-76,000 -120,000 unit Capsule,Delayed Release(Dr/Ec) 1 cap PO BIDCM Patient Comments: med ordered 3x/day. pt states he takes it 'maybe 2x/day' (DME) OXYGEN - Supplemental ([facility] INFORMATIONAL USE ONLY) Gas See Rx Instructions .ROUTE Patient Comments: per case management, verified through [employer], 2LPM continuous Rx Instructions: As directed metoprolol succinate 25 mg tablet extended release 24 hr 25 mg PO DAILY Qty: 30 11RF Referrals / Follow Up: Sigrid Call [facility], DO [Primary Care Provider] - Disposition Disposition (needs filled in before D/C Order can be placed): Acute Care Hospital Charges/Coding Visit Charges Inpatient E&M: 68456 Disch Hosp
== END 2024-10-17 21:44 | disposition short-term general hospital (02) | DRG 314 ==
LOC: ED 15:33 → PCU 16:12 → ICU 10-13 20:06 → PCU 10-16 14:42
PROVIDERS: Family Medicine; Internal Medicine; Internal Medicine Pulmonary Disease; Student in an Organized Health Care Education/Training Program; Admitting Provider Internal Medicine; Emergency Provider Emergency Medicine; PCP Family Medicine
DX: T82.857A Stenosis of other cardiac prosthetic devices, implants and grafts, initial encounter (principal); I50.23 Acute on chronic systolic (congestive) heart failure; J96.21 Acute and chronic respiratory failure with hypoxia; E43 Unspecified severe protein-calorie malnutrition; J15.69 Pneumonia due to other Gram-negative bacteria; T81.19XA Other postprocedural shock, initial encounter; I24.89 Other forms of acute ischemic heart disease; K86.0 Alcohol-induced chronic pancreatitis; I47.10 Supraventricular tachycardia, unspecified; J91.8 Pleural effusion in other conditions classified elsewhere; R18.8 Other ascites; Z66 Do not resuscitate; D69.6 Thrombocytopenia, unspecified; K74.60 Unspecified cirrhosis of liver; E11.9 Type 2 diabetes mellitus without complications; J43.9 Emphysema, unspecified; I11.0 Hypertensive heart disease with heart failure; I71.21 Aneurysm of the ascending aorta, without rupture; D64.9 Anemia, unspecified; F10.11 Alcohol abuse, in remission; Z95.2 Presence of prosthetic heart valve; I49.5 Sick sinus syndrome; E78.00 Pure hypercholesterolemia, unspecified; F17.210 Nicotine dependence, cigarettes, uncomplicated; K76.0 Fatty (change of) liver, not elsewhere classified; K21.9 Gastro-esophageal reflux disease without esophagitis; I71.40 Abdominal aortic aneurysm, without rupture, unspecified; I35.0 Nonrheumatic aortic (valve) stenosis; I95.81 Postprocedural hypotension; I25.2 Old myocardial infarction; Y84.4 Aspiration of fluid as the cause of abnormal reaction of the patient, or of later complication, without mention of misadventure at the time of the procedure; Y71.2 Prosthetic and other implants, materials and accessory cardiovascular devices associated with adverse incidents; M94.0 Chondrocostal junction syndrome [Tietze]; Z68.20 Body mass index [BMI] 20.0-20.9, adult; Z79.84 Long term (current) use of oral hypoglycemic drugs; Z79.899 Other long term (current) drug therapy; Z95.0 Presence of cardiac pacemaker; Z95.3 Presence of xenogenic heart valve; Z99.81 Dependence on supplemental oxygen; Z68.22 Body mass index [BMI] 22.0-22.9, adult
CPT/HCPCS: 32555; 36415; 36569; 36600; 71045; 71046; 71275; 74177; 80048; 80053; 80202; 81001; 82803; 82945; 82962; 83605; 83615; 83690; 83735; 83880; 84100; 84145; 84155; 84157; 84484; 85014; 85018; 85025; 85610; 85730; 87040; 87449; 87641; 88108; 88305; 88313; 88341; 88342; 89050; 93005; 93308; 94660; 94668; 97162; 97166; 97530; 97535; 97803; 99285; Q9967; A4216; C8924; J1938; J2405

== ENCOUNTER 2024-12-09 09:43 | Inpatient (IN) | payer MEDICARE, MEDICAID, SELFPAY ==
[2024-12-09] VITALS (24 sets, daily range): BP systolic 104–212; BP diastolic 61–124; PULSE 67–125; RESP 12–20; TEMP 36.1–36.9; O2SAT 98–100; BMI 18.2; BMI 16.1
--- NOTE | 2024-12-09 09:57 | RAD_ITS ---
PROCEDURE: RAD/HIP, UNI W/ Pelvis 2-3 Views
--- NOTE | 2024-12-09 09:59 | EX.ED.DYSGE1 ---
HPI History of Present Illness Chief Complaint: Hyperglycemia Informant: patient and EMS Onset/Context/Timing Onset: Days Context: Gradual Onset Timing: Continuous Current Severity: Moderate Maximum Severity: Moderate Narrative Narrative: 64-year-old male history of diabetes, pancreatitis and CHF. Recent TAVR procedure done at [facility] in October. Patient lives at home with his 97-year-old father. Patient states he was told to stop checking his blood sugars. He was also instructed to come off his insulin reportedly. States he got up last night to go to the bathroom he thinks was before midnight fell and was unable to get up because he is weak. He also has some mild hip discomfort. Denies hitting his head or any LOC. He is also had prior open heart surgery and has a pacemaker defibrillator on the left. Denies any vomiting or diarrhea. Denies any fever or chills. Denies any dysuria. Prior similar symptoms: No Recent Illness/Hospitalization: Yes PFSH PFS Medical History Chronic pancreatitis Chronic pancreatitis due to chronic alcoholism Malnutrition Pancytopenia Medically noncompliant Thrombocytopenia Macrocytosis associated with alcohol Ascites due to alcoholic cirrhosis Chronic diarrhea Chronic alcohol abuse Abdominal ascites MALIK (acute kidney injury) Seizures Alcoholic hepatitis Chronic pancreatitis Gastric wall thickening Alcohol dependence Anxiety Diabetes Pancreatitis Myocardial infarct Pacemaker AAA (abdominal aortic aneurysm) Admitted to alcohol detoxification center Alcohol abuse Hx of hypercholesterolemia History of diabetes mellitus Alcohol dependence Substance abuse Smoker Alcoholism Right bundle branch block (RBBB) Non-sustained ventricular tachycardia Thoracic aortic aneurysm SVT (supraventricular tachycardia) Ascending aortic dissection (~2005) Pure hypercholesterolemia Adrenal nodule Hiatal hernia Left carotid bruit Cardiac pacemaker in situ (~06/2016) Essential hypertension Pacemaker Sick sinus syndrome Tobacco use HTN (hypertension) Diabetes mellitus, type II Home Medications ?Medication ?Instructions ?Recorded ?Last Taken ?Type atorvastatin 10 mg tablet 10 mg PO DAILY CHOLESTEROL 10/17/20 07/31/24 History dapagliflozin propanediol 10 mg 10 mg PO DAILY DIABETES 09/30/21 07/31/24 History tablet (Farxiga) multivitamin 1 tab PO DAILY SUPPLEMENT 11/11/21 07/31/24 History gabapentin 300 mg capsule 300 mg PO DAILY NEUROPATHY 11/14/22 07/31/24 History metformin 500 mg tablet,extended 500 mg PO DAILY DIABETES 11/15/22 07/31/24 History release 24 hr folic acid 1 mg tablet 1 mg PO DAILY@0800 supplement #0 05/20/23 07/31/24 Rx tabs thiamine HCl (vitamin B1) 100 mg 100 mg PO DAILYCM vitamin #0 tabs 05/20/23 07/31/24 Rx tablet (Vitamin B-1) pantoprazole 40 mg tablet,delayed 40 mg PO BID reflux #60 tabs 06/27/23 07/31/24 Rx release ferrous sulfate 325 mg (65 mg 325 mg PO DAILY supplement 06/30/24 07/31/24 History iron) tablet (FeroSul) spironolactone 25 mg tablet 25 mg PO DAILY diuretic 30 days 07/06/24 07/31/24 Rx Held on 09/04/24. #30 tabs Instructions: Resume on 09/14/24. L.acidophil,salivari-Bifido 1 cap PO BID Probiotic 08/01/24 07/31/24 History bifidum-Strep thermoph 175 mg capsule furosemide 20 mg tablet 40 mg (2 x 20 mg) PO DAILY 30 days 08/03/24 Unknown Rx #60 tabs sacubitril 24 mg-valsartan 26 mg 1 tab PO BID #60 tabs 08/03/24 Unknown Rx tablet (Entresto) lczswj-dgebpesb-yrzcblu 1 cap PO BIDCM 08/29/24 Unknown History 24,000-76,000-120,000 unit capsule,delayed rel (Creon) metoprolol succinate 25 mg 25 mg PO DAILY blood pressure #30 10/12/24 Unknown Rx tablet,extended release 24 hr tabs OXYGEN - Supplemental ([facility] 10/17/24 Unknown History INFORMATIONAL USE ONLY) apixaban 5 mg tablet (Eliquis) 5 mg PO BID 12/09/24 Unknown History Allergy/AdvReac Type Severity Reaction Status Date / Time No Known Allergies Allergy Verified 12/09/24 09:52 Family History Father CAD (coronary artery disease) Mother Dementia Surgical History History of aortic aneurysm repair (~2016) H/O cardiac catheterization History of cataract surgery History of hernia repair History of aortic valve replacement with bioprosthetic valve (~2016) H/O aortic valve replacement Social History household members: family housing: house Smoking Status: Light Smoker (<10/day) alcohol intake: current alcohol intake frequency: 0-2 drinks per day details: Reports currently ~ 2 tall boys daily. substance use type: former substance user caffeine: Yes Type: coffee Number of servings: 3 ROS ROS ED ROS Narrative Patient denies recent illness. Denies fever or chills. Constitutional Constitutional ED: Denies chills or fever(s) Eyes Eyes: Denies blurry vision ENT ENT ED: Denies ear pain Cardiovascular Cardiovascular: Denies chest pain Respiratory/Chest Respiratory/Chest: Denies cough Gastrointestinal Gastrointestinal: Denies abdominal pain Genitourinary Genitourinary ED: Denies dysuria or hematuria Musculoskeletal Musculoskeletal: Denies arthralgias Integumentary Denies abscess or Abrasions Neurologic Neurologic: Denies headache(s) Psychiatric Psychiatric: Denies anxiety or depression Hematologic/Lymphatic Hematologic/Lymphatic: Reports none Allergic/Immunologic Allergic/Immunologic ED: Denies mouth swelling, tongue swelling or urticaria EXAM Physical Exam Narrative Exam Narrative: 64-year-old male lying in bed. Vital signs initial blood pressure is elevated 183/124 his heart rates 125. He looks weak. He looks cachectic and emaciated. He had dry stool on his backside the nurses are cleaning off. He is awake alert. He is answering questions and following commands. He looks chronically ill. H EENT exam pupils are round react to light. No signs of trauma to his face or scalp. Nontender. Very dry mucous membranes. No dentition. Neck nontender. Trachea midline. Lungs clear to auscultation bilaterally. Heart tachycardic 120 no murmur. Chest wall well-healed prior sternotomy. Chest and ribs nontender. Left-sided pacemaker defibrillator. Abdomen soft, nontender, nondistended, normal bowel sounds without peritoneal signs. Pelvic girdle intact. Mild right hip tenderness. No obvious shortening or rotation. Mild pain with passive range of motion. Dorsi plantarflexion intact. Calves nontender no edema. Trace edema in his feet. 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 Upper extremities are nontender. Neurologically he is awake. He is alert. He is answering questions following commands. Back is nontender without signs of trauma. Const Vital Signs: 12/09/24 09:44 12/09/24 10:14 12/09/24 10:31 Temperature 97.0 F L Temperature Source Axillary Pulse Rate 125 H 122 H Respiratory Rate 18 20 H Respiratory Effort Normal Non-Labored Respiratory Pattern Normal Blood Pressure 183/124 H 163/117 H Blood Pressure Mean 143 132 Pulse Ox 99 100 Oxygen Delivery Method Room Air Room Air MDM MDM MDM Narrative Medical decision making narrative: 64-year-old diabetic male fell at home today was unable to get up unknown length of time he was down may be 12 hours or more. But were unsure of the actual time that he fell. He looks unkept. He looks malnourished and thin. His blood sugars reading greater than 500 we will evaluate him for possible DKA versus infection. He is having some right hip pain post the fall rule out fracture. X-rays will be obtained, IV fluids 2 L and screening labs. Most likely will need admitted. Patient be treated with IV fluids. Will attempt to get a second line. Will be started on insulin drip. Will be given aerosol and calcium gluconate for his hyperkalemia. He will be admitted to the ICU. Repeat exam patient is doing well at 11:47 AM. He is receiving IV fluids. Insulin drip will be started. He will be treated for his hyperkalemia and his hyperglycemia. He had I have gone over his test results and his x-rays and CAT scan and he is comfortable with the admission. Hospitalist is on page. Patient has chronic abdominal pain from chronic pancreatitis. He requested some for pain I will give him some morphine. His repeat abdominal exam is benign. Nontender. Nondistended. History & Record Review Discussion w/independent historian: Patient Additional record(s) reviewed:: Prior inpatient record, Prior outpatient record, Prior ED visit and Prior labs Lab Data Attestation: I reviewed the patient's lab results. Lab results narrative: VBG shows a pH of 7.24, pCO2 of 51 and pO2 of 29. CBC shows a white count of 15.6. H&H 13 and 41. Platelets 180. 92% neutrophils. Electrolytes show sodium 127. Potassium is 6.5. His anion gap 6 BUN and creatinine are 30 and 1.1. His glucose is 1068. UA shows 1000 glucose. No nitrates. No white or red cells. No bacteria. CPK is 175. Lactic acid is elevated 2.5. Beta hydroxybutyric acid is elevated 2.8. Alcohol is negative. Labs: Laboratory Results - last 24 hr 12/09/24 12/09/24 10:10 10:26 WBC 15.6 H RBC 3.94 L Hgb 13.0 Hct 41.6 MCV 105.6 H MCH 33.0 H MCHC 31.3 L RDW Std Deviation 63.0 H RDW Coeff of Kalpana 15.9 H Plt Count 180 MPV 11.5 Immature Gran % (Auto) 0.400 Neut % (Auto) 92.3 H Lymph % (Auto) 1.9 L Travis % (Auto) 4.6 Eos % (Auto) 0.0 Baso % (Auto) 0.8 Absolute Neuts (auto) 14.4 H Absolute Lymphs (auto) 0.29 L Nucleated RBC % 0 Sodium 127 L Potassium 6.5 H* Chloride 91 L Carbon Dioxide 19.9 L Anion Gap 16 H BUN 30 H Creatinine 1.19 Estim Creat Clear Calc 52.53 Est GFR (MDRD) Non-Af 69 BUN/Creatinine Ratio 25.5 H Glucose 1068 H* Lactic Acid 2.5 H* Calcium 10.3 Total Bilirubin 0.41 AST 37 ALT 35 Alkaline Phosphatase 195 H Total Creatine Kinase 175 Total Protein 8.2 Albumin 4.6 Globulin 3.6 Albumin/Globulin Ratio 1.3 b-Hydroxybutyric mmol/L 2.8 H Urine Color Straw Urine Clarity Clear Urine pH 6.5 Ur Specific [place]ument 1.005 Urine Protein 30 H Urine Glucose (UA) 1000 H Urine Ketones 5 H Urine Occult Blood 50 H Urine Nitrite Negative Urine Bilirubin Negative Urine Urobilinogen Normal Ur Leukocyte Esterase Negative Urine RBC 0-5 SEEN Urine WBC 0 SEEN Ur Squamous Epith Cells 0 SEEN Urine Bacteria 0 SEEN Urine Mucus 0 SEEN Ethyl Alcohol < 10.1 ABG Data ABG results: ABG 12/09/24 10:38 Specimen Type ROSA Sample Site Not entered VBG pH 7.25 L VBG pO2 30 VBG HCO3 22 VBG Total CO2 24 VBG O2 Sat (Calc) 47 L VBG Base Excess -5 L POC Mix VBG pCO2 Pt Tmp 51.2 H O2 Delivery Device Not entered Radiography Chest X-Ray - ED: 1 View, Read by ED Physician, Read by Radiologist, Heart, Lungs, Mediastinum, Bony Structures and No Acute Disease Diagnostic Testing: Pelvis and right hip x-ray, multiple views, interpreted by myself shows no acute fracture. No dislocation. Chronic changes Chest x-ray, 1 view, 2 view interpreted by by myself and radiologist. Shows left-sided pacemaker. Prior sternotomy. Normal cardiac silhouette. No pneumonia. No effusions. Chronic changes. No acute process. Right shoulder x-ray multiple views interpreted by myself shows no fracture or dislocation. Chronic changes no acute process. Rhythm Strip Rhythm Strip: Sinus Tach Rate: 118 Ectopy: None EKG Initial EKG: Attestation: I personally reviewed and interpreted this EKG as follows: Interpretation: No Acute Injury Pattern, Sinus Tachycardia and RBBB Comments: Sinus tachycardia rate of 118 no acute signs of SC or ischemia. Right bundle branch block. Inverted T waves in leads V1 and V2. No ST elevation. Critical Care Time Critical Care Time: Yes Critical care time (excluding procedures): 30-74 minutes, Including time spent:, Discussing w/Patient &/or Family/Process Worker, Discussing w/Consultants, Arranging Admission or Transfer, Performing Direct Patient Care at Bedside and - (44 minutes.) Discharge Plan Triage Chief Complaint: Hyperglycemia ED Provider: Vinh Lomeli Dx/Rx/DC Orders Clinical Impression: Hyperosmolar hyperglycemic state (HHS), History of diabetes mellitus, Acute hyperkalemia, Acute hyponatremia, Fall Prescriptions: No Action atorvastatin 10 mg tablet 10 mg PO DAILY dapagliflozin propanediol [Farxiga] 10 mg Tablet 10 mg PO DAILY multivitamin Tablet 1 tab PO DAILY gabapentin 300 mg Capsule 300 mg PO DAILY metformin 500 mg tablet extended release 24 hr 500 mg PO DAILY Patient Comments: PT STATES THEY TAKE THIS ONCE DAILY. pantoprazole 40 mg tablet,delayed release (DR/EC) 40 mg PO BID Qty: 60 0RF Eliquis 5 mg tablet 5 mg PO BID thiamine HCl (vitamin B1) [Vitamin B-1] 100 mg Tablet 100 mg PO DAILYCM Qty: 0 0RF folic acid 1 mg Tablet 1 mg PO DAILY@0800 Qty: 0 0RF ferrous sulfate [FeroSul] 325 mg (65 mg iron) tablet 325 mg PO DAILY spironolactone 25 mg Tablet 25 mg PO DAILY 30 Days Qty: 30 2RF L.acidoph,saliva-B.bif-S.therm 175 mg Capsule 1 cap PO BID sacubitril-valsartan [Entresto] 24-26 mg tablet 1 tab PO BID Qty: 60 0RF furosemide 20 mg Tablet 40 mg PO DAILY 30 Days Qty: 60 2RF Creon 24,000-76,000 -120,000 unit Capsule,Delayed Release(Dr/Ec) 1 cap PO BIDCM Patient Comments: med ordered 3x/day. pt states he takes it 'maybe 2x/day' (DME) OXYGEN - Supplemental ([facility] INFORMATIONAL USE ONLY) Gas See Rx Instructions .ROUTE Patient Comments: per case management, verified through [employer], 2LPM continuous Rx Instructions: As directed metoprolol succinate 25 mg tablet extended release 24 hr 25 mg PO DAILY Qty: 30 11RF Primary Care Provider: Sigrid Call Referrals: Sigrid Call, DO [Primary Care Provider, Family Practice] Print Language: Luxembourger
--- NOTE | 2024-12-09 10:15 | RAD_ITS ---
PROCEDURE: RAD/Shoulder min 2 Views
[2024-12-09 10:34] LABS: Mucous, Urine 0 SEEN /hpf (<or=2+); Squamous Epithelial Cells - UA 0 SEEN /hpf (0-5)
[2024-12-09 10:37] LABS: Hematocrit 41.6 % (40-54); Hemoglobin 13.0 g/dL (13.0-16.5); Immature Granulocytes Count 0.070 X10^3/uL (0.0-0.0); Mean Corp Hgb Conc 31.3 g/dL (32-36); Mean Corpuscular Volume 105.6 fL (80-94); Mean Platelet Vol. 11.5 fl (6.2-12.0); NRBC Flagged by Analyzer 0 % (0-5); POSITIVE DIFFERENTIAL YES; Platelet Count 180 K/mm3 (150-450); RBC Distribution Width CV 15.9 % (11.6-14.6); RBC Distribution Width SD 63.0 fl (35.1-43.9); Red Blood Count 3.94 M/mm3 (4.6-6.2); White Blood Count 15.6 K/mm3 (4.4-11.0)
[2024-12-09 10:42] LABS: SITE Not entered; VBG BASE EXCESS -5 mmol/L (-1.0-3.5); VBG PO2 30 mmHg (25-40); VBG SO2 47 % (50-70); VBG TCO2 24 mmol/L (23-33)
[2024-12-09 10:44] LABS: Color, Urine Straw (Yellow); Glucose, Dipstick 1000 mg/dl (Normal); Ketone-Dipstick 5 mg/dl (Negative); Leukocyte Esterase-Dipstick Negative /ul (Negative); Nitrite-Dipstick Negative (Negative); Occult Blood-Urine 50 /ul (Negative); Protein-Dipstick 30 mg/dl (Negative); Specific Gravity, Urine 1.005 (1.002-1.030); Urine Bilirubin Dipstick Negative (Negative)
[2024-12-09 10:53] LABS: Red Blood Cells-Urine 0-5 SEEN /hpf (0-5)
[2024-12-09 11:01] LABS: CPK Total, Creatine Kinase 175 U/L (24-195)
[2024-12-09] MEDS: 0.9% Normal Saline (1000mL) 1,000 ML 1000 ML IV ×2 (11:01→11:55)
[2024-12-09 11:02] LABS: Alcohol, Blood (Medical)-Serum < 10.1 mg/dL (<=10.0)
[2024-12-09 11:05] LABS: BETA-HYDROXYBUTYRATE 2.8 mmol/L (0.0-0.3)
--- NOTE | 2024-12-09 11:15 | CT_ITS ---
PROCEDURE: CT/Brain/Head without Contrast
--- NOTE | 2024-12-09 11:20 | RAD_ITS ---
PROCEDURE: RAD/Chest 1 View (Portable)
[2024-12-09 11:22] LABS: AST(SGOT) 37 U/L (<=37); Alanine Aminotransfer ALT/SGPT 35 U/L (<=46); Albumin, Serum 4.6 g/dL (3.4-4.8); Alkaline Phosphatase 195 U/L (40-129); Anion Gap 16 (5-15); BUN 30 mg/dL (4-19); BUN/Creat Ratio 25.5 RATIO (10-20); Calcium,Total 10.3 mg/dL (7.6-11.0); Carbon Dioxide 19.9 mmol/L (21.0-32.0); Chloride 91 mmol/L (98-108); Estimated Creatinine Clearance 52.53 ml/min (50-250); Globulin 3.6 g/dL (2.2-4.2); Glucose 1068 mg/dL (70-99); Potassium 6.5 mmol/L (3.3-5.1)
[2024-12-09] MEDS: Albuterol *CONC* 2.5mg/0.5mL VIAL.NEB. 10 MG INHALATION (11:43)
--- NOTE | 2024-12-09 11:51 | ED.RN ---
Jian Ellison updated on PT POC.
[2024-12-09] MEDS: Calcium Gluconate IV 3 GM in Syringe 1 EACH IV (11:56)
[2024-12-09] MEDS: Insulin Lispro 100 UNIT in 0.9% Normal Saline (100mL Bag) 99 ML 8.6 UNIT CONT INF (12:11)
[2024-12-09 12:50] LABS: Creatinine, Urine (random) 6.37 mg/dL (39.00-259.00); Protein, Urine (Random) 6.1 mg/dL (0.0-12.0); Protein:Creat Ratio 962 mg/g CRE (0-200)
[2024-12-09 12:54] LABS: Osmolality, Serum 357 mOsm/KG (280-301)
[2024-12-09 12:54] LABS: Osmolality, Urine 467 mOsm/KG
[2024-12-09] MEDS: 0.9% Normal Saline (1000mL) 1,000 ML 999 ML IV ×2 (12:57→14:20)
[2024-12-09 13:00] LABS: Magnesium 2.4 mg/dL (1.5-2.2)
[2024-12-09 13:41] LABS: Anion Gap 16 (5-15); Carbon Dioxide 18.1 mmol/L (21.0-32.0); Chloride 101 mmol/L (98-108); Potassium 4.3 mmol/L (3.3-5.1)
[2024-12-09 13:52] LABS: Glucose 749 mg/dL (70-99)
[2024-12-09 14:31] LABS: Reflex Lactate? Y
--- NOTE | 2024-12-09 14:54 | PCM.HP.STD ---
HPI - General General Date of Admission: 12/09/24 Date of Service: 12/09/24 Chief Complaint: Hyperglycemia, recently discontinued insulin HPI Narrative ANALILIA TALLEY, is a 64 M who was brought to ED by EMS in dehydrated state. He walked to the bathroom last night and then felt he could not get up and then was on the floor for about 12 hours. He said he slept on the floor or passed out unconscious, unclear as he stated he did not have good memory. Patient is profoundly dehydrated and he states he recently discontinued because he does not have diabetes. He also had prior open heart surgery and has left subclavicular pacemaker. He had aortic valve replacement with a prosthetic valve and then TAVR. History of IV substance use and chronic alcohol in the past. He still smoke cigarettes about a pack per day. Patient states he has chronic pancreatitis from drinking alcohol in the past but has not drank in the last 10 to 15 years. Probably his diabetes mellitus is from chronic pancreatitis. Patient was given IV fluid normal saline bolus and started on insulin drip. Patient's labs is consistent more with HHS than DKA. Patient further admitted in ICU. [facility] Medical History Chronic pancreatitis Chronic pancreatitis due to chronic alcoholism Malnutrition Pancytopenia Medically noncompliant Thrombocytopenia Macrocytosis associated with alcohol Ascites due to alcoholic cirrhosis Chronic diarrhea Chronic alcohol abuse Abdominal ascites MALIK (acute kidney injury) Seizures Alcoholic hepatitis Chronic pancreatitis Gastric wall thickening Alcohol dependence Anxiety Diabetes Pancreatitis Myocardial infarct Pacemaker AAA (abdominal aortic aneurysm) Admitted to alcohol detoxification center Alcohol abuse Hx of hypercholesterolemia History of diabetes mellitus Alcohol dependence Substance abuse Smoker Alcoholism Right bundle branch block (RBBB) Non-sustained ventricular tachycardia Thoracic aortic aneurysm SVT (supraventricular tachycardia) Ascending aortic dissection (~2005) Pure hypercholesterolemia Adrenal nodule Hiatal hernia Left carotid bruit Cardiac pacemaker in situ (~06/2016) Essential hypertension Pacemaker Sick sinus syndrome Tobacco use HTN (hypertension) Diabetes mellitus, type II Home Medications ?Medication ?Instructions ?Recorded ?Last Taken ?Type atorvastatin 10 mg tablet 10 mg PO DAILY CHOLESTEROL 10/17/20 07/31/24 History dapagliflozin propanediol 10 mg 10 mg PO DAILY DIABETES 09/30/21 07/31/24 History tablet (Farxiga) multivitamin 1 tab PO DAILY SUPPLEMENT 11/11/21 07/31/24 History gabapentin 300 mg capsule 300 mg PO DAILY NEUROPATHY 11/14/22 07/31/24 History metformin 500 mg tablet,extended 500 mg PO DAILY DIABETES 11/15/22 07/31/24 History release 24 hr folic acid 1 mg tablet 1 mg PO DAILY@0800 supplement #0 05/20/23 07/31/24 Rx tabs thiamine HCl (vitamin B1) 100 mg 100 mg PO DAILYCM vitamin #0 tabs 05/20/23 07/31/24 Rx tablet (Vitamin B-1) pantoprazole 40 mg tablet,delayed 40 mg PO BID reflux #60 tabs 06/27/23 07/31/24 Rx release ferrous sulfate 325 mg (65 mg 325 mg PO DAILY supplement 06/30/24 07/31/24 History iron) tablet (FeroSul) spironolactone 25 mg tablet 25 mg PO DAILY diuretic 30 days 07/06/24 07/31/24 Rx Held on 09/04/24. #30 tabs Instructions: Resume on 09/14/24. L.acidophil,salivari-Bifido 1 cap PO BID Probiotic 08/01/24 07/31/24 History bifidum-Strep thermoph 175 mg capsule furosemide 20 mg tablet 40 mg (2 x 20 mg) PO DAILY 30 days 08/03/24 Unknown Rx #60 tabs sacubitril 24 mg-valsartan 26 mg 1 tab PO BID #60 tabs 08/03/24 Unknown Rx tablet (Entresto) xkizos-gsplkvip-bopufqz 1 cap PO BIDCM 08/29/24 Unknown History 24,000-76,000-120,000 unit capsule,delayed rel (Creon) metoprolol succinate 25 mg 25 mg PO DAILY blood pressure #30 10/12/24 Unknown Rx tablet,extended release 24 hr tabs OXYGEN - Supplemental ([facility] 10/17/24 Unknown History INFORMATIONAL USE ONLY) apixaban 5 mg tablet (Eliquis) 5 mg PO BID 12/09/24 Unknown History Allergy/AdvReac Type Severity Reaction Status Date / Time No Known Allergies Allergy Verified 12/09/24 09:52 Family History Father CAD (coronary artery disease) Mother Dementia Surgical History History of aortic aneurysm repair (~2017) H/O cardiac catheterization History of cataract surgery History of hernia repair History of aortic valve replacement with bioprosthetic valve (~2016) H/O aortic valve replacement Social History household members: family housing: house Smoking Status: Light Smoker (<10/day) alcohol intake: current alcohol intake frequency: 0-2 drinks per day details: Reports currently ~ 2 tall boys daily. substance use type: former substance user caffeine: Yes Type: coffee Number of servings: 3 ROS ROS Narrative 14 system ROS probably not accurate or valid because of patient's poor memory Constitutional: Reports chronic fatigue and weakness. No fever. HEENT: Reports systems reviewed and no addt'l complaints, except as documented Respiratory/Chest: No acute shortness of breath or respiratory distress or wheezing. CVS: No chest pain. History of open heart surgery/aortic valve replacement and pacemaker Gastrointestinal: Denies coffee ground emesis, hematemesis or vomiting Genitourinary: Denies burning urination or new urinary tract symptoms Musculoskeletal: Denies acute joint pain or limited range of motion. Fall. Mild bruise over right hip and shoulder Neurologic: Denies seizure-like symptoms. Unclear about LOC Psychiatric: Feels sometimes confused and depressed. No suicidal ideation/thoughts or plan. skin: No ulcer. No rash Endocrinology: Reports systems reviewed and no addt'l complaints, except as documented Hematologic/Lymphatic: Reports systems reviewed and no addt'l complaints, except as documented Rest 14 ROS are negative except as mentioned in HPI Vital Signs Vital Signs Vital Signs: 12/09/24 09:44 12/09/24 10:14 12/09/24 10:31 Temperature 97.0 F L Temperature Source Axillary Pulse Rate 125 H 122 H Respiratory Rate 18 20 H Respiratory Effort Normal Non-Labored Respiratory Pattern Normal Blood Pressure 183/124 H 163/117 H Blood Pressure Mean 143 132 Pulse Ox 99 100 Oxygen Delivery Method Room Air Room Air 12/09/24 11:30 12/09/24 11:44 12/09/24 12:16 Temperature Temperature Source Pulse Rate 108 H 100 112 H Respiratory Rate 18 16 19 H Respiratory Effort Respiratory Pattern Normal Blood Pressure 175/117 H 181/117 H Blood Pressure Mean 136 138 Pulse Ox 100 100 Oxygen Delivery Method Room Air Room Air 12/09/24 12:30 12/09/24 13:00 12/09/24 13:03 Temperature 98.4 F 98.4 F Temperature Source Oral Pulse Rate 122 H 104 H 104 H Respiratory Rate 18 16 16 Respiratory Effort Respiratory Pattern Blood Pressure 212/123 H 142/87 H 142/87 H Blood Pressure Mean 152 105 105 Pulse Ox 99 98 98 Oxygen Delivery Method Room Air Room Air Weight Weight: 112 lb 6.972 oz Body Mass Index (BMI) 16.1 Physical Exam Narrative General: Alert, Oriented x3, Cooperative. Looks older than age. BMI 16.1 [place] per square meter HEENT: Atraumatic, PERRLA, EOMI, Normocephalic. Oral: Profoundly dry oral mucosa. No Gingival or Mucosal Lesions/ Ulcerations Neck: Supple, No JVD, Negative Carotid Bruits Chest wall/Lungs: Air entry diminished in bilateral lung bases. No crepitation/rhonchi Cardiovascular: Regular rate and rhythm, Normal S1,S2, No M/G/R Abdomen: Bowel Sounds Present, Soft, Non Tender, Non-Distended : No dysuria. No renal angle tenderness. No suprapubic tenderness. Extremities: No edema, Capillary Refill Less than 3 Seconds Skin: No rashes, No breakdown Musculoskeletal: No Tenderness to Palpation of Joints or Extremities. Severe malnutrition with bony prominences of shoulder, hip, rib cage and spine. Severe loss of muscle mass and subcutaneous fat Neurological: Cranial nerves II-XII grossly intact, DTR 2+/4. No acute focal neurological deficit. Psych/Mental Status: Flat affect, poor memory/mild amnesia Results Lab / Micro Data 12/09/24 10:26 12/09/24 12:00 Labs: Laboratory Results - last 24 hr 12/09/24 10:10: Urine Color Straw, Urine Clarity Clear, Urine pH 6.5, Ur Specific [place] 1.005, Urine Protein 30 H, Urine Glucose (UA) 1000 H, Urine Ketones 5 H, Urine Occult Blood 50 H, Urine Nitrite Negative, Urine Bilirubin Negative, Urine Urobilinogen Normal, Ur Leukocyte Esterase Negative, Urine RBC 0-5 SEEN, Urine WBC 0 SEEN, Ur Squamous Epith Cells 0 SEEN, Urine Bacteria 0 SEEN, Urine Mucus 0 SEEN, Urine Osmolality 467, U Random Total Protein 6.1, Ur Random Sodium 68, Urine Creatinine 6.37 L, Protein/Creatinin Ratio 962 H, Urine Potassium 15.7, Urine Chloride 64 12/09/24 10:26: WBC 15.6 H, RBC 3.94 L, Hgb 13.0, Hct 41.6, MCV 105.6 H, MCH 33.0 H, MCHC 31.3 L, RDW Std Deviation 63.0 H, RDW Coeff of [place] 15.9 H, Plt Count 180, MPV 11.5, Immature Gran % (Auto) 0.400, Neut % (Auto) 92.3 H, Lymph % (Auto) 1.9 L, [place] % (Auto) 4.6, Eos % (Auto) 0.0, Baso % (Auto) 0.8, Absolute Neuts (auto) 14.4 H, Absolute Lymphs (auto) 0.29 L, Nucleated RBC % 0, Sodium 127 L, Potassium 6.5 H*, Chloride 91 L, Carbon Dioxide 19.9 L, Anion Gap 16 H, BUN 30 H, Creatinine 1.19, Estim Creat Clear Calc 52.53, Est GFR (MDRD) Non-Af 69, BUN/Creatinine Ratio 25.5 H, Glucose 1068 H*, Serum Osmolality 357 H, Lactic Acid 2.5 H*, Calcium 10.3, Phosphorus 5.0 H, Magnesium 2.4 H, Total Bilirubin 0.41, AST 37, ALT 35, Alkaline Phosphatase 195 H, Total Creatine Kinase 175, Total Protein 8.2, Albumin 4.6, Globulin 3.6, Albumin/Globulin Ratio 1.3, b-Hydroxybutyric mmol/L 2.8 H, Ethyl Alcohol < 10.1 12/09/24 12:00: Sodium 135, Potassium 4.3, Chloride 101, Carbon Dioxide 18.1 L, Anion Gap 16 H, Glucose 749 H* 12/09/24 12:50: POC Glucose > 500 H* Micro: Microbiology 12/09/24 10:26 Mucosa - Nose SARS-CoV-2, Influenza & RSV (PCR) - Final ABG Data ABG results: ABG 12/09/24 10:38 Specimen Type ROSA Sample Site Not entered VBG pH 7.25 L VBG pO2 30 VBG HCO3 22 VBG Total CO2 24 VBG O2 Sat (Calc) 47 L VBG Base Excess -5 L POC Mix VBG pCO2 Pt Tmp 51.2 H O2 Delivery Device Not entered Rhythm Strip Rhythm Strip: Sinus Tach Rate: 118 Ectopy: None Imaging Radiology Impression Hip/Pelvis X-Ray 12/09/24 09:57 IMPRESSION: No fracture seen. Reading Location: [facility] Shoulder X-Ray 12/09/24 10:15 IMPRESSION: No fracture seen. Reading Location: [facility] Brain CT 12/09/24 11:15 IMPRESSION: 1. No evidence of intracranial hemorrhage or acute ischemia. 2. Changes of chronic microvascular ischemia and volume loss. 3. Encephalomalacia in the watershed regions. Similar to prior. Reading Location: [id number] Chest X-Ray 12/09/24 11:20 IMPRESSION: No acute abnormality status post TAVR. Reading Location: [facility] Assessment & Plan Assessment/Plan (1) Acute hyperkalemia: (2) Fall: PLAN: Plan This 64-year-old gentleman being admitted for hyperglycemia and possibly to HHS 1. HHS possible due to noncompliance: Patient is being admitted in ICU. Patient had 2 L of IV fluid, normal saline bolus in ER. 2 more Normal Saline bolus ordered and then normal saline at 250 mL/h for 2 bags and then 125 mL/h and further fluid need depends on state of hydration and electrolyte abnormality. VBG 7.27/mixed pCO2 51/pO2 47, bicarb 22/24. BMP shows bicarb 20 with anion gap 16. I think BMP bicarb is underestimated. As admitting blood glucose was 1068, serum osmolarity 357, lactic acid 2.5 with significant dehydration and altered mental status at home probably consistent with Hyperosmolar hyperglycemic state. Continue with aggressive IV fluid replacement admission level. Repeat glucose 467. 2. Possible secondary diabetes mellitus from chronic alcoholic pancreatitis: Patient history of chronic alcohol use disorder quit about 10 to 15 years ago. He does not have abdominal pain. Patient is on Creon at home. Currently NPO. Will resume once he starts oral 3. Fall with mild bruising at right shoulder/right hip, unclear about LOC/syncope: As per patient he said he might have been confused or disoriented which may be due to metabolic encephalopathy. PT and OT ordered. 4. Electrolyte abnormality: Hyponatremia, hyperkalemia, hyperchloremia, hypermagnesemia and hyperphosphatemia: This due to profound volume depletion/dehydration from HHS.,: Repeat labs shows improvement in sodium 135, K4.3 bicarb 18 anion gap 16. Glucose 149. 5. Chronic HFrEF, severe aortic valve stenosis status post aortic valve replacement and TAVR, sick sinus syndrome status post pacemaker: Patient was last admitted in October 2024 for acute on chronic hypoxic respiratory failure, shock probably hypovolemic/septic and acute HFrEF and was transferred to [facility]. 2D echo on 10/16/2024 shows EF 35%, stage I diastolic function, LA severely enlarged. Mild MR calcific aortic valve with severe aortic valve stenosis mean gradient 47 mmHg with left pleural effusion. Since then patient had TAVR. Prior to that he had 2 aortic valves surgeries with mechanical AVR which lasted 10 years and then [place] process 2016. 6. Chronic abdominal aortic aneurysm: No acute issues. Follow-up with vascular surgery on outpatient. 7. Chronic GERD: PPI 8. Chronic smoking: Patient still smokes a pack per day. On nicotine patch. 9. DVT prophylaxis, moderate risk: Lovenox 41 subcu daily ordered. Living will/advanced directive/end of life care: Patient does have living will or advanced directive. His daughter is power of lump inspector for healthcare after discussion of benefits/risks procedures involved with full code, DNR CC arrest and DNR CC, the patient opted for full code. Patient does want artificial life support including intubation, tube feed, ventilator and/chest compression, central venous catheter, vasopressor and DC shock if needed Total time spent in [id number] encounter in discussion of advanced directive 17 minutes. Microbiology Past 72 Hours 12/09/24 10:26 Mucosa - Nose SARS-CoV-2, Influenza & RSV (PCR) - Final Laboratory Results 12/09/24 10:10: Urine Color Straw, Urine Clarity Clear, Urine pH 6.5, Ur Specific [place] 1.005, Urine Protein 30 H, Urine Glucose (UA) 1000 H, Urine Ketones 5 H, Urine Occult Blood 50 H, Urine Nitrite Negative, Urine Bilirubin Negative, Urine Urobilinogen Normal, Ur Leukocyte Esterase Negative, Urine RBC 0-5 SEEN, Urine WBC 0 SEEN, Ur Squamous Epith Cells 0 SEEN, Urine Bacteria 0 SEEN, Urine Mucus 0 SEEN, Urine Osmolality 467, U Random Total Protein 6.1, Ur Random Sodium 68, Urine Creatinine 6.37 L, Protein/Creatinin Ratio 962 H, Urine Potassium 15.7, Urine Chloride 64 12/09/24 10:26: WBC 15.6 H, RBC 3.94 L, Hgb 13.0, Hct 41.6, MCV 105.6 H, MCH 33.0 H, MCHC 31.3 L, RDW Std Deviation 63.0 H, RDW Coeff of [place] 15.9 H, Plt Count 180, MPV 11.5, Immature Gran % (Auto) 0.400, Neut % (Auto) 92.3 H, Lymph % (Auto) 1.9 L, [place] % (Auto) 4.6, Eos % (Auto) 0.0, Baso % (Auto) 0.8, Absolute Neuts (auto) 14.4 H, Absolute Lymphs (auto) 0.29 L, Nucleated RBC % 0, Sodium 127 L, Potassium 6.5 H*, Chloride 91 L, Carbon Dioxide 19.9 L, Anion Gap 16 H, BUN 30 H, Creatinine 1.19, Estim Creat Clear Calc 52.53, Est GFR (MDRD) Non-Af 69, BUN/Creatinine Ratio 25.5 H, Glucose 1068 H*, Serum Osmolality 357 H, Lactic Acid 2.5 H*, Calcium 10.3, Phosphorus 5.0 H, Magnesium 2.4 H, Total Bilirubin 0.41, AST 37, ALT 35, Alkaline Phosphatase 195 H, Total Creatine Kinase 175, Total Protein 8.2, Albumin 4.6, Globulin 3.6, Albumin/Globulin Ratio 1.3, b-Hydroxybutyric mmol/L 2.8 H, Ethyl Alcohol < 10.1 12/09/24 10:38: Specimen Type ROSA, Sample Site Not entered, VBG pH 7.25 L, VBG pO2 30, VBG HCO3 22, VBG Total CO2 24, VBG O2 Sat (Calc) 47 L, VBG Base Excess -5 L, POC Mix VBG pCO2 Pt Tmp 51.2 H, O2 Delivery Device Not entered 12/09/24 12:00: Sodium 135, Potassium 4.3, Chloride 101, Carbon Dioxide 18.1 L, Anion Gap 16 H, Glucose 749 H* 12/09/24 12:50: POC Glucose > 500 H* 12/09/24 14:15: POC Glucose 467 H* 12/09/24 14:45: Sodium Pending, Potassium Pending, Chloride Pending, Carbon Dioxide Pending, Anion Gap Pending, Lactic Acid Pending Charges/Coding Visit Charges Inpatient E&M: 53324 Init Hosp L3 Procedures Hospitalists Procedures: 67358 Advncd Care Plan 30 Min
[2024-12-09] MEDS: 0.9% Normal Saline (1000mL) 1,000 ML 250 ML IV (15:25)
[2024-12-09 15:32] LABS: Anion Gap 15 (5-15); Carbon Dioxide 18.0 mmol/L (21.0-32.0); Chloride 106 mmol/L (98-108); Potassium 3.8 mmol/L (3.3-5.1)
[2024-12-09] MEDS: Potassium Chloride 10mEq/100mL 10 MEQ/100 ML IV.SOLN. 100 MEQ IV BOLUS ×3 (15:53→18:07)
[2024-12-09 16:05] LABS: Magnesium 1.9 mg/dL (1.5-2.2)
[2024-12-09] MEDS: Dext 5%-0.45% NS 1,000 ML 250 ML IV ×2 (19:26→23:44)
[2024-12-09] MEDS: 0.9% Saline Lock 10 ML Syringe IV ×2 (19:26→23:44)
[2024-12-09 20:08] LABS: Magnesium 2.0 mg/dL (1.5-2.2)
[2024-12-09 20:21] LABS: Anion Gap 9 (5-15); Carbon Dioxide 19.4 mmol/L (21.0-32.0); Chloride 112 mmol/L (98-108); Potassium 4.5 mmol/L (3.3-5.1)
[2024-12-09 22:41] LABS: Anion Gap 7 (5-15); Carbon Dioxide 20.6 mmol/L (21.0-32.0); Chloride 111 mmol/L (98-108); Magnesium 1.9 mg/dL (1.5-2.2); Potassium 4.2 mmol/L (3.3-5.1)
[2024-12-10] VITALS (14 sets, daily range): BP systolic 99–160; BP diastolic 64–94; PULSE 63–95; RESP 11–18; TEMP 36.4–36.8; O2SAT 97–100; BMI 17.5
[2024-12-10 01:42] LABS: Anion Gap 8 (5-15); Carbon Dioxide 19.3 mmol/L (21.0-32.0); Chloride 111 mmol/L (98-108); Potassium 3.8 mmol/L (3.3-5.1)
[2024-12-10] MEDS: 0.9% Saline Lock 10 ML Syringe IV ×3 (01:53→09:39)
[2024-12-10] MEDS: Potassium Chloride 10mEq/100mL 10 MEQ/100 ML IV.SOLN. 100 MEQ IV BOLUS ×3 (02:35→04:40)
[2024-12-10] MEDS: Dext 5%-0.45% NS 1,000 ML 250 ML IV (02:50)
[2024-12-10 05:23] LABS: BETA-HYDROXYBUTYRATE 0.1 mmol/L (0.0-0.3)
--- NOTE | 2024-12-10 05:29 | PCM.HOSP.N ---
Hospitalist Note Patient with close x 2 with normalized hydroxybutyrate acid level. Will transition to ADA diet, maintain on Accu-Cheks with insulin sliding scale, add low-dose long-acting overlap with hypoglycemic protocol.
[2024-12-10] MEDS: Insulin Glargine-YFGN 100 UNIT/ML Pen SC ×2 (05:57→10:54)
[2024-12-10 07:23] LABS: Anion Gap 9 (5-15); BUN 13 mg/dL (4-19); BUN/Creat Ratio 19.1 RATIO (10-20); Calcium,Total 8.7 mg/dL (7.6-11.0); Carbon Dioxide 17.6 mmol/L (21.0-32.0); Chloride 109 mmol/L (98-108); Estimated Creatinine Clearance 88.42 ml/min (50-250); Glucose 192 mg/dL (70-99); Potassium 4.5 mmol/L (3.3-5.1)
--- NOTE | 2024-12-10 09:11 | PN.HOSP_ITS ---
Reason for Visit
--- NOTE | 2024-12-10 09:11 | PCM.PN.HOSP ---
Reason for Visit Chief Complaint: Hyperglycemia, recently discontinued insulin Objective Data Objective Data Vital Signs: Vital Signs Temp Pulse Resp BP Pulse Ox O2 Del Method FiO2 97.6 F L 63 12 160/78 H 99 Room Air 35 12/10/24 02:00 12/10/24 07:00 12/10/24 07:00 12/10/24 07:00 12/10/24 07:00 12/10/24 07:00 12/10/24 05:00 Oxygen Delivery Method Room Air Weight: 122 lb 5.705 oz Body Mass Index (BMI) 17.5 Intake & Output: Intake and Output for Last 24 Hours 12/08/24 12/09/24 12/10/24 23:59 23:59 22:59 Intake Total 6262.05 / 6262.05 2246.36 / 2246.36 Output Total 300 / 950 1000 / 1000 Balance 5962.05 / 5312.05 1246.36 / 1246.36 Lab / Micro Data 12/09/24 10:26 12/10/24 06:01 Labs: Laboratory Results - last 24 hr 12/09/24 10:10: Urine Color Straw, Urine Clarity Clear, Urine pH 6.5, Ur Specific [place] 1.005, Urine Protein 30 H, Urine Glucose (UA) 1000 H, Urine Ketones 5 H, Urine Occult Blood 50 H, Urine Nitrite Negative, Urine Bilirubin Negative, Urine Urobilinogen Normal, Ur Leukocyte Esterase Negative, Urine RBC 0-5 SEEN, Urine WBC 0 SEEN, Ur Squamous Epith Cells 0 SEEN, Urine Bacteria 0 SEEN, Urine Mucus 0 SEEN, Urine Osmolality 467, U Random Total Protein 6.1, Ur Random Sodium 68, Urine Creatinine 6.37 L, Protein/Creatinin Ratio 962 H, Urine Potassium 15.7, Urine Chloride 64 12/09/24 10:26: WBC 15.6 H, RBC 3.94 L, Hgb 13.0, Hct 41.6, MCV 105.6 H, MCH 33.0 H, MCHC 31.3 L, RDW Std Deviation 63.0 H, RDW Coeff of [place] 15.9 H, Plt Count 180, MPV 11.5, Immature Gran % (Auto) 0.400, Neut % (Auto) 92.3 H, Lymph % (Auto) 1.9 L, [place] % (Auto) 4.6, Eos % (Auto) 0.0, Baso % (Auto) 0.8, Absolute Neuts (auto) 14.4 H, Absolute Lymphs (auto) 0.29 L, Nucleated RBC % 0, Sodium 127 L, Potassium 6.5 H*, Chloride 91 L, Carbon Dioxide 19.9 L, Anion Gap 16 H, BUN 30 H, Creatinine 1.19, Estim Creat Clear Calc 52.53, Est GFR (MDRD) Non-Af 69, BUN/Creatinine Ratio 25.5 H, Glucose 1068 H*, Serum Osmolality 357 H, Lactic Acid 2.5 H*, Calcium 10.3, Phosphorus 5.0 H, Magnesium 2.4 H, Total Bilirubin 0.41, AST 37, ALT 35, Alkaline Phosphatase 195 H, Total Creatine Kinase 175, Total Protein 8.2, Albumin 4.6, Globulin 3.6, Albumin/Globulin Ratio 1.3, b-Hydroxybutyric mmol/L 2.8 H, Ethyl Alcohol < 10.1 12/09/24 12:00: Sodium 135, Potassium 4.3, Chloride 101, Carbon Dioxide 18.1 L, Anion Gap 16 H, Glucose 749 H* 12/09/24 12:50: POC Glucose > 500 H* 12/09/24 14:15: POC Glucose 467 H* 12/09/24 14:45: Sodium 139, Potassium 3.8, Chloride 106, Carbon Dioxide 18.0 L, Anion Gap 15, Lactic Acid 5.2 H*, Phosphorus 3.4, Magnesium 1.9 12/09/24 15:20: POC Glucose 434 H 12/09/24 16:23: POC Glucose 291 H 12/09/24 17:25: POC Glucose 300 H 12/09/24 18:26: POC Glucose 246 H 12/09/24 19:24: Sodium 141, Potassium 4.5, Chloride 112 H, Carbon Dioxide 19.4 L, Anion Gap 9, Phosphorus 3.0, Magnesium 2.0, POC Glucose 235 H 12/09/24 20:33: POC Glucose 224 H 12/09/24 21:38: POC Glucose 246 H 12/09/24 21:57: Sodium 139 12/09/24 21:57: Sodium Cancelled, Potassium 4.2 12/09/24 21:57: Potassium Cancelled, Chloride 111 H 12/09/24 21:57: Chloride Cancelled, Carbon Dioxide 20.6 L 12/09/24 21:57: Carbon Dioxide Cancelled, Anion Gap 7 12/09/24 21:57: Anion Gap Cancelled, Phosphorus 2.4 L, Magnesium 1.9 12/09/24 23:16: POC Glucose 190 H 12/10/24 00:32: POC Glucose 163 H 12/10/24 01:50 EST: POC Glucose 139 H 12/10/24 01:51 EST: Sodium 138, Potassium 3.8, Chloride 111 H, Carbon Dioxide 19.3 L, Anion Gap 8, Phosphorus 2.2 L 12/10/24 01:53 EST: POC Glucose 122 H 12/10/24 02:54: POC Glucose 125 H 12/10/24 03:45: POC Glucose 145 H 12/10/24 04:36: b-Hydroxybutyric mmol/L 0.1, TSH 0.487 12/10/24 04:37: POC Glucose 169 H 12/10/24 05:45: POC Glucose 166 H 12/10/24 06:01: Sodium 135, Potassium 4.5, Chloride 109 H, Carbon Dioxide 17.6 L, Anion Gap 9, BUN 13, Creatinine 0.68 L, Estim Creat Clear Calc 88.42, Est GFR (MDRD) Non-Af 105, BUN/Creatinine Ratio 19.1, Glucose 192 H, Hemoglobin A1c 14.0 H, Lactic Acid 1.6, Calcium 8.7 12/10/24 08:01: POC Glucose 184 H Micro: Microbiology 12/09/24 10:26 Mucosa - Nose SARS-CoV-2, Influenza & RSV (PCR) - Final ABG Data ABG results: ABG 12/09/24 10:38 Specimen Type ROSA Sample Site Not entered VBG pH 7.25 L VBG pO2 30 VBG HCO3 22 VBG Total CO2 24 VBG O2 Sat (Calc) 47 L VBG Base Excess -5 L POC Mix VBG pCO2 Pt Tmp 51.2 H O2 Delivery Device Not entered Radiography Diagnostic Testing: Radiology Impression Hip/Pelvis X-Ray 12/09/24 09:57 IMPRESSION: No fracture seen. Reading Location: [id number] Shoulder X-Ray 12/09/24 10:15 IMPRESSION: No fracture seen. Reading Location: [id number] Brain CT 12/09/24 11:15 IMPRESSION: 1. No evidence of intracranial hemorrhage or acute ischemia. 2. Changes of chronic microvascular ischemia and volume loss. 3. Encephalomalacia in the watershed regions. Similar to prior. Reading Location: [facility] Chest X-Ray 12/09/24 11:20 IMPRESSION: No acute abnormality status post TAVR. Reading Location: [facility] Rhythm Strip Rhythm Strip: Sinus Tach Rate: 118 Ectopy: None Physical Exam Narrative Complaint of headache. He said he gets relief with Advil. Physical exam: General: Alert, Oriented x3, Cooperative. Looks older than age. BMI 16.1 KG square meter HEENT: Atraumatic, PERRLA, EOMI, Normocephalic. Oral: Oral mucosa moist no Gingival or Mucosal Lesions/ Ulcerations Neck: Supple, No JVD, Negative Carotid Bruits Chest wall/Lungs: Air entry diminished in bilateral lung bases. No crepitation/rhonchi Cardiovascular: Regular rate and rhythm, Normal S1,S2, No M/G/R Abdomen: Bowel Sounds Present, Soft, Non Tender, Non-Distended : No dysuria. No renal angle tenderness. No suprapubic tenderness. Extremities: No edema, Capillary Refill Less than 3 Seconds Skin: No rashes, No breakdown Musculoskeletal: No Tenderness to Palpation of Joints or Extremities. Severe malnutrition with bony prominences of shoulder, hip, rib cage and spine. Severe loss of muscle mass and subcutaneous fat Neurological: Cranial nerves II-XII grossly intact, DTR 2+/4. No acute focal neurological deficit. Psych/Mental Status: Flat affect, poor memory/mild amnesia Assessment & Plan Assessment/Plan (1) Acute hyperkalemia: (2) Fall: PLAN: Plan This 64-year-old gentleman being admitted for hyperglycemia and possibly to HHS 1. HHS possible due to noncompliance: Patient is being admitted in ICU. Patient had 2 L of IV fluid, normal saline bolus in ER. 2 more Normal Saline bolus ordered and then normal saline at 250 mL/h for 2 bags and then 125 mL/h and further fluid need depends on state of hydration and electrolyte abnormality. VBG 7.27/mixed pCO2 51/pO2 47, bicarb 22/24. BMP shows bicarb 20 with anion gap 16. I think BMP bicarb is underestimated. As admitting blood glucose was 1068, serum osmolarity 357, lactic acid 2.5 with significant dehydration and altered mental status at home probably consistent with Hyperosmolar hyperglycemic state. Continue with aggressive IV fluid replacement admission level. Repeat glucose 467. 12/10: Anion gap was not elevated to start with closed x 2 last night. Patient transitioned from insulin drip to intermittent subcu insulin. Accu-Chek before meals and at bedtime with Humalog sliding scale coverage and hypoglycemia protocol. Glucose in BMP is 192. Mild hypophosphatemia. Serum magnesium and potassium are normal. Continue holding metformin and Farxiga. Orders put for transfer to [facility] 2. Possible secondary diabetes mellitus from chronic alcoholic pancreatitis: Patient history of chronic alcohol use disorder quit about 10 to 15 years ago. He does not have abdominal pain. Patient is on Creon at home. Currently NPO. Will resume once he starts oral 12/10: Patient on Creon replace. Avoid fatty diet. On thiamine and folic acid. 3. Fall with mild bruising at right shoulder/right hip, unclear about LOC/syncope: As per patient he said he might have been confused or disoriented which may be due to metabolic encephalopathy. PT and OT ordered. 4. Electrolyte abnormality: Hyponatremia, hyperkalemia, hyperchloremia, hypermagnesemia and hyperphosphatemia: This due to profound volume depletion/dehydration from HHS.,: Repeat labs shows improvement in sodium 135, K4.3 bicarb 18 anion gap 16. Glucose 149. 5. Chronic HFrEF, severe aortic valve stenosis status post aortic valve replacement and TAVR, sick sinus syndrome status post pacemaker: Patient was last admitted in October 2024 for acute on chronic hypoxic respiratory failure, shock probably hypovolemic/septic and acute HFrEF and was transferred to [facility]. 2D echo on 10/16/2024 shows EF 35%, stage I diastolic function, LA severely enlarged. Mild MR calcific aortic valve with severe aortic valve stenosis mean gradient 47 mmHg with left pleural effusion. Since then patient had TAVR. Prior to that he had 2 aortic valves surgeries with mechanical AVR which lasted 10 years and then Latta process 2016. 12/10: Patient heart rate is good but BP elevated. Started on his medications Entresto. Continue holding diuretics. On metoprolol succinate regimen. 6. Chronic abdominal aortic aneurysm: No acute issues. Follow-up with vascular surgery on outpatient. 7. Chronic GERD: PPI 8. Chronic smoking: Patient still smokes a pack per day. On nicotine patch. 9. DVT prophylaxis, moderate risk: Lovenox 41 subcu daily ordered. Living will/advanced directive/end of life care: Patient does have living will or advanced directive. His daughter is power of district attorney for healthcare after discussion of benefits/risks procedures involved with full code, DNR CC arrest and DNR CC, the patient opted for full code. Patient does want artificial life support including intubation, tube feed, ventilator and/chest compression, central venous catheter, vasopressor and DC shock if needed Total time spent in [id number] encounter in discussion of advanced directive 17 minutes. Microbiology Past 72 Hours 12/09/24 10:26 Mucosa - Nose SARS-CoV-2, Influenza & RSV (PCR) - Final Laboratory Results 12/09/24 10:10: Urine Color Straw, Urine Clarity Clear, Urine pH 6.5, Ur Specific [place] 1.005, Urine Protein 30 H, Urine Glucose (UA) 1000 H, Urine Ketones 5 H, Urine Occult Blood 50 H, Urine Nitrite Negative, Urine Bilirubin Negative, Urine Urobilinogen Normal, Ur Leukocyte Esterase Negative, Urine RBC 0-5 SEEN, Urine WBC 0 SEEN, Ur Squamous Epith Cells 0 SEEN, Urine Bacteria 0 SEEN, Urine Mucus 0 SEEN, Urine Osmolality 467, U Random Total Protein 6.1, Ur Random Sodium 68, Urine Creatinine 6.37 L, Protein/Creatinin Ratio 962 H, Urine Potassium 15.7, Urine Chloride 64 12/09/24 10:26: WBC 15.6 H, RBC 3.94 L, Hgb 13.0, Hct 41.6, MCV 105.6 H, MCH 33.0 H, MCHC 31.3 L, RDW Std Deviation 63.0 H, RDW Coeff of [place] 15.9 H, Plt Count 180, MPV 11.5, Immature Gran % (Auto) 0.400, Neut % (Auto) 92.3 H, Lymph % (Auto) 1.9 L, [place] % (Auto) 4.6, Eos % (Auto) 0.0, Baso % (Auto) 0.8, Absolute Neuts (auto) 14.4 H, Absolute Lymphs (auto) 0.29 L, Nucleated RBC % 0, Sodium 127 L, Potassium 6.5 H*, Chloride 91 L, Carbon Dioxide 19.9 L, Anion Gap 16 H, BUN 30 H, Creatinine 1.19, Estim Creat Clear Calc 52.53, Est GFR (MDRD) Non-Af 69, BUN/Creatinine Ratio 25.5 H, Glucose 1068 H*, Serum Osmolality 357 H, Lactic Acid 2.5 H*, Calcium 10.3, Phosphorus 5.0 H, Magnesium 2.4 H, Total Bilirubin 0.41, AST 37, ALT 35, Alkaline Phosphatase 195 H, Total Creatine Kinase 175, Total Protein 8.2, Albumin 4.6, Globulin 3.6, Albumin/Globulin Ratio 1.3, b-Hydroxybutyric mmol/L 2.8 H, Ethyl Alcohol < 10.1 12/09/24 10:38: Specimen Type ROSA, Sample Site Not entered, VBG pH 7.25 L, VBG pO2 30, VBG HCO3 22, VBG Total CO2 24, VBG O2 Sat (Calc) 47 L, VBG Base Excess -5 L, POC Mix VBG pCO2 Pt Tmp 51.2 H, O2 Delivery Device Not entered 12/09/24 12:00: Sodium 135, Potassium 4.3, Chloride 101, Carbon Dioxide 18.1 L, Anion Gap 16 H, Glucose 749 H* 12/09/24 12:50: POC Glucose > 500 H* 12/09/24 14:15: POC Glucose 467 H* 12/09/24 14:45: Sodium 139, Potassium 3.8, Chloride 106, Carbon Dioxide 18.0 L, Anion Gap 15, Lactic Acid 5.2 H*, Phosphorus 3.4, Magnesium 1.9 12/09/24 15:20: POC Glucose 434 H 12/09/24 16:23: POC Glucose 291 H 12/09/24 17:25: POC Glucose 300 H 12/09/24 18:26: POC Glucose 246 H 12/09/24 19:24: Sodium 141, Potassium 4.5, Chloride 112 H, Carbon Dioxide 19.4 L, Anion Gap 9, Phosphorus 3.0, Magnesium 2.0, POC Glucose 235 H 12/09/24 20:33: POC Glucose 224 H 12/09/24 21:38: POC Glucose 246 H 12/09/24 21:57: Sodium 139 12/09/24 21:57: Sodium Cancelled, Potassium 4.2 12/09/24 21:57: Potassium Cancelled, Chloride 111 H 12/09/24 21:57: Chloride Cancelled, Carbon Dioxide 20.6 L 12/09/24 21:57: Carbon Dioxide Cancelled, Anion Gap 7 12/09/24 21:57: Anion Gap Cancelled, Phosphorus 2.4 L, Magnesium 1.9 12/09/24 23:16: POC Glucose 190 H 12/10/24 00:32: POC Glucose 163 H 12/10/24 01:50 EST: POC Glucose 139 H 12/10/24 01:51 EST: Sodium 138, Potassium 3.8, Chloride 111 H, Carbon Dioxide 19.3 L, Anion Gap 8, Phosphorus 2.2 L 12/10/24 01:53 EST: POC Glucose 122 H 12/10/24 02:54: POC Glucose 125 H 12/10/24 03:45: POC Glucose 145 H 12/10/24 04:36: b-Hydroxybutyric mmol/L 0.1, TSH 0.487 12/10/24 04:37: POC Glucose 169 H 12/10/24 05:45: POC Glucose 166 H 12/10/24 06:01: WBC Pending, RBC Pending, Hgb Pending, Hct Pending, MCV Pending, MCH Pending, MCHC Pending, RDW Std Deviation Pending, RDW Coeff of [place] Pending, Plt Count Pending, Neut % (Auto) Pending, Absolute Neuts (auto) Pending, Sodium 135, Potassium 4.5, Chloride 109 H, Carbon Dioxide 17.6 L, Anion Gap 9, BUN 13, Creatinine 0.68 L, Estim Creat Clear Calc 88.42, Est GFR (MDRD) Non-Af 105, BUN/Creatinine Ratio 19.1, Glucose 192 H, Hemoglobin A1c 14.0 H, Lactic Acid 1.6, Calcium 8.7 12/10/24 08:01: POC Glucose 184 H Charges/Coding Visit Charges Inpatient E&M: 00790 Subs Hosp L3
[2024-12-10] MEDS: FLU VACCINE 2025-26(6MOS UP) 45 MCG/0.5 ML SYRINGE IM (09:26)
[2024-12-10] MEDS: APIXABAN 5 MG TABLET PO ×2 (10:52→21:47)
[2024-12-10] MEDS: Na Biphos/Potassium Phosphate PACKET 1 PACKET PO ×2 (10:53→21:47)
[2024-12-10] MEDS: SACUBITRIL/VALSARTAN 24/26 MG TABLET 1 EACH PO (10:53)
[2024-12-10] MEDS: Metoprolol(XL)Succ 25 MG Tablet PO (10:55)
--- NOTE | 2024-12-10 11:30 | NURSING ---
report called to MS3 RNChiara. to [id number] per WC
[2024-12-10 12:00] LABS: Hematocrit 26.7 % (40-54); Hemoglobin 8.8 g/dL (13.0-16.5); Immature Granulocytes Count 0.060 X10^3/uL (0.0-0.0); Mean Corp Hgb Conc 33.0 g/dL (32-36); Mean Corpuscular Volume 102.3 fL (80-94); Mean Platelet Vol. 12.0 fl (6.2-12.0); NRBC Flagged by Analyzer 0 % (0-5); Platelet Count 134 K/mm3 (150-450); RBC Distribution Width CV 16.7 % (11.6-14.6); RBC Distribution Width SD 62.9 fl (35.1-43.9); Red Blood Count 2.61 M/mm3 (4.6-6.2); White Blood Count 12.4 K/mm3 (4.4-11.0)
[2024-12-10] MEDS: Creon 24,000 unit DR Capsule 1 CAP PO ×2 (12:19→16:21)
[2024-12-10] MEDS: Glucerna Shake 120 ML LIQUID PO (12:21)
[2024-12-11 03:17] VITALS: BP 101/68; PULSE 61; RESP 16; TEMP 36.9; O2SAT 99
[2024-12-11 06:00] VITALS: BMI 17.6
[2024-12-11] MEDS: Na Biphos/Potassium Phosphate PACKET 1 PACKET PO ×2 (06:03→13:45)
--- NOTE | 2024-12-11 07:10 | PN.HOSP_ITS ---
Reason for Visit
--- NOTE | 2024-12-11 07:10 | PCM.PN.HOSP ---
Reason for Visit Chief Complaint: Hyperglycemia, recently discontinued insulin Subjective Subjective Patient 64-year-old gentleman with history of chronic pancreatitis, diabetes mellitus type 2 who presented with hyperglycemia and assessment of hyperosmolar nonketotic state made admitted to the intensive care unit stabilized and later transferred to progressive care unit Objective Data Objective Data Vital Signs: Vital Signs Temp Pulse Resp BP Pulse Ox O2 Del Method FiO2 98.5 F 61 16 101/68 99 Room Air 35 12/11/24 03:17 12/11/24 03:17 12/11/24 03:17 12/11/24 03:17 12/11/24 03:17 12/11/24 03:18 12/10/24 05:00 Oxygen Delivery Method Room Air Weight: 55.8 kg Body Mass Index (BMI) 17.6 Intake & Output: Intake and Output for Last 24 Hours 12/09/24 12/10/24 12/11/24 23:59 22:59 23:59 Intake Total 6262.05 / 6262.05 2946.36 / 2946.36 Output Total 300 / 950 2150 / 2150 1050 / 1050 Balance 5962.05 / 5312.05 796.36 / 796.36 -1050 / -1050 Medical Nutrition Assessment Dietitian: Malnutrition Criteria Met Start: 12/10/24 15:10 Freq: Status: Active Protocol: Document 12/10/24 15:11 RMA (Rec: 12/10/24 15:11 RMA [id number]) Nutrition Malnutrition Evidence of Yes Malnutrition Exists Malnutrition (severe Chronic ): Evidenced By Suboptimal Energy Intake (Severe),Weight Loss (Severe), Physical Changes (Moderate) Clinical Problem Chronic Disease or Condition Related Malnutrition Etiology Severe protein-calorie malnutrition in the context of chronic disease/debility related to alcohol dependence, pancreatitis/inflammation, altered GI function, inadequate oral/energy intake, weight loss and hyperglycemia Signs/Symptoms as evidenced by ~16% unintentional weight loss x 6 months, BMI 17.6, moderate muscle wasting and fat depletion in the clavicle, face, arms and legs, HgbA1C 14%, PO meeting less than 75% estimated nutrition needs Status Active Problem Recommendation Dietitian Will change diet to carbohydrate-controlled/cardiac/fat Recommendations/ -restricted. Changes Will continue 120mL glucerna shake 3 times per day w/ medpass as ordered. Will add 240mL glucerna shake w/ breakfast tray. Trend weights closely and follow-up with diet education as needed. Lab / Micro Data 12/10/24 06:01 12/11/24 07:28 Labs: Laboratory Results - last 24 hr 12/10/24 06:01: WBC 12.4 H, RBC 2.61 L, Hgb 8.8 L, Hct 26.7 L, MCV 102.3 H, MCH 33.7 H, MCHC 33.0 D, RDW Std Deviation 62.9 H, RDW Coeff of [place] 16.7 H, Plt Count 134 L, MPV 12.0, Immature Gran % (Auto) 0.500, Neut % (Auto) 82.7 H, Lymph % (Auto) 10.0 L, [place] % (Auto) 5.7, Eos % (Auto) 0.8, Baso % (Auto) 0.3, Absolute Neuts (auto) 10.2 H, Absolute Lymphs (auto) 1.24, Nucleated RBC % 0, Sodium 135, Potassium 4.5, Chloride 109 H, Carbon Dioxide 17.6 L, Anion Gap 9, BUN 13, Creatinine 0.68 L, Estim Creat Clear Calc 88.42, Est GFR (MDRD) Non-Af 105, BUN/Creatinine Ratio 19.1, Glucose 192 H, Calcium 8.7 12/10/24 08:01: POC Glucose 184 H 12/10/24 11:33: POC Glucose 346 H 12/10/24 12:07: POC Glucose 422 H 12/10/24 16:20: POC Glucose 223 H 12/10/24 21:38: POC Glucose 255 H 12/11/24 05:59: POC Glucose 254 H Micro: Microbiology 12/09/24 10:26 Mucosa - Nose SARS-CoV-2, Influenza & RSV (PCR) - Final Rhythm Strip Rhythm Strip: Sinus Tach Rate: 118 Ectopy: None Physical Exam Narrative GENERAL: cooperative HEENT: Atraumatic; normocephalic EYES; Anicteric, Normal Conjunctiva NECK; supple, normal thyroid, RESPIRATORY: Diminished to auscultation CARDIOVASCULAR: Regular S1 S2, GI: soft, normoactive bowel sounds, : No Renal angle tenderness; EXTREMITIES: No edema, no clubbing, MUSCULOSKELETAL: muscle wasting NEURO: Awake; no lateralizing signs. SKIN: No Rash PSYCH; Flat affect Assessment & Plan Assessment/Plan (1) Acute hyperkalemia: (2) Fall: PLAN: Plan Patient 64-year-old gentleman with history of chronic pancreatitis, diabetes mellitus type 2 who presented with hyperglycemia and assessment of hyperosmolar nonketotic state made admitted to the intensive care unit stabilized and later transferred to progressive care unit 1. Diabetes mellitus type 2 with complications including hyperosmolar nonketotic state ? Patient was admitted with markedly elevated blood glucose levels greater than thousand. Managed with IV fluid with serial monitoring of electrolytes with correction of electrolyte abnormalities. Patient hyper osmolar nonketotic state did respond to treatment and [facility] Patient has history of noncompliance with treatment was counseled on the need to be compliant 2. Hyponatremia Secondary to pseudohyponatremia from hyperglycemia resolved with correction of patient's hyperglycemia 3. Chronic abdominal pain?secondary to chronic pancreatitis ? Patient is on Creon did continue 4. Anemia ? Secondary to chronic disorder monitoring H&H and transfuse if patient becomes symptomatic or hemoglobin falls below 7 5.? Sick sinus syndrome ? Status post pacemaker placement 6.? History of ascending aortic dissection ? Status post repair 7.? Valvular heart disease - history of aortic valve replacement with bioprosthetic material 8.? Hypertension - Blood pressure low on admission antihypertensives held 9. Dyslipidemia -Patient is on statin therapy, continued at home dose 10. GERD ? On famotidine 11. Chronic congestive heart failure with reduced ejection fraction ? Patient is on furosemide Aldactone as well as metoprolol continued. Patient had a 2D echo performed on 07/01/2024 which did show The estimated ejection fraction is 35-40 %. Moderate LV systolic dysfunction with global LV hypokinesia. 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 Mean aortic valve gradient 40.2 mmHg. Pacemaker lead seen in the right ventricle Trivial MR Transmitral Doppler flow revealed impaired relaxation of LV. 12. Tobacco dependence ? Counseled on cessation, offered nicotine patch for tobacco cravings 13. Severe protein-calorie malnutrition in the context of chronic disease/debility related to alcohol dependence, pancreatitis/inflammation, altered GI function, inadequate oral/energy intake, weight loss and Hyperglycemia as evidenced by ~16% unintentional weight loss x 6 months, BMI 17.6, moderate muscle wasting and fat depletion in the clavicle, face, arms and legs, HgbA1C 14%, PO meeting less than 75% estimated nutrition needs. Patient was seen in consultation by dietary notes reviewed 14. DVT prophylaxis Patient on apixaban Time spent in the patient's overall evaluation,decision-making process, review of diagnostic data, adjustment of management, discussion with other providers, nursing nursing and ancillary staff involved in patient's care documentation, 38 Minutes Charges/Coding Visit Charges Inpatient E&M: 11384 Subs Hosp L2
[2024-12-11 08:32] LABS: Magnesium 2.1 mg/dL (1.5-2.2)
[2024-12-11 08:33] LABS: AST(SGOT) 56 U/L (<=37); Alanine Aminotransfer ALT/SGPT 29 U/L (<=46); Albumin, Serum 2.9 g/dL (3.4-4.8); Alkaline Phosphatase 114 U/L (40-129); Anion Gap 7 (5-15); BUN 16 mg/dL (4-19); BUN/Creat Ratio 19.9 RATIO (10-20); Calcium,Total 8.5 mg/dL (7.6-11.0); Carbon Dioxide 18.5 mmol/L (21.0-32.0); Chloride 107 mmol/L (98-108); Estimated Creatinine Clearance 75.56 ml/min (50-250); Globulin 2.2 g/dL (2.2-4.2); Glucose 210 mg/dL (70-99); Potassium 5.0 mmol/L (3.3-5.1)
[2024-12-11 09:08] VITALS: PULSE 72
[2024-12-11] MEDS: APIXABAN 5 MG TABLET PO (09:08)
[2024-12-11] MEDS: Metoprolol(XL)Succ 25 MG Tablet PO (09:08)
[2024-12-11] MEDS: Creon 24,000 unit DR Capsule 1 CAP PO ×2 (09:08→11:38)
[2024-12-11] MEDS: SACUBITRIL/VALSARTAN 24/26 MG TABLET 1 EACH PO (09:08)
[2024-12-11] MEDS: Thiamine Hydrochloride 100 MG Tablet PO (09:08)
[2024-12-11] MEDS: Insulin Glargine-YFGN 100 UNIT/ML Pen 10 UNIT SC (09:09)
[2024-12-11 09:14] VITALS: BP 123/76; PULSE 72; RESP 18; TEMP 36.3; O2SAT 98
[2024-12-11 09:50] VITALS: O2SAT 97
--- NOTE | 2024-12-11 11:53 | PCM.DC.SUM ---
Providers Date of Admission: 12/09/24 Date of Discharge: 12/11/24 Primary Care Physician: Sigrid Call [facility], DO Reason For Visit: DKA Diagnosis Discharge Diagnosis (1) Acute hyperkalemia: Status: Acute Code(s): E87.5 - Hyperkalemia (2) Fall: Status: Acute Code(s): W19.XXXA - Unspecified fall, initial encounter Plan Patient 64-year-old gentleman with history of chronic pancreatitis, diabetes mellitus type 2 who presented with hyperglycemia and assessment of hyperosmolar nonketotic state made admitted to the intensive care unit stabilized and later transferred to progressive care unit 1. Diabetes mellitus type 2 with complications including hyperosmolar nonketotic state ? Patient was admitted with markedly elevated blood glucose levels greater than thousand. Managed with IV fluid with serial monitoring of electrolytes with correction of electrolyte abnormalities. Patient hyper osmolar nonketotic state did respond to treatment and subsequently transferred to MedSur unit. Patient has history of noncompliance with treatment was counseled on the need to be compliant 2. Hyponatremia Secondary to pseudohyponatremia from hyperglycemia resolved with correction of patient's hyperglycemia 3. Chronic abdominal pain?secondary to chronic pancreatitis ? Patient is on Creon did continue 4. Anemia ? Secondary to chronic disorder monitoring H&H and transfuse if patient becomes symptomatic or hemoglobin falls below 7 5.? Sick sinus syndrome ? Status post pacemaker placement 6.? History of ascending aortic dissection ? Status post repair 7.? Valvular heart disease - history of aortic valve replacement with bioprosthetic material 8.? Hypertension - Blood pressure low on admission antihypertensives held 9. Dyslipidemia -Patient is on statin therapy, continued at home dose 10. GERD ? On famotidine 11. Chronic congestive heart failure with reduced ejection fraction ? Patient is on furosemide Aldactone as well as metoprolol continued. Patient had a 2D echo performed on 07/01/2024 which did show The estimated ejection fraction is 35-40 %. Moderate LV systolic dysfunction with global LV hypokinesia. 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 Mean aortic valve gradient 40.2 mmHg. Pacemaker lead seen in the right ventricle Trivial MR Transmitral Doppler flow revealed impaired relaxation of LV. 12. Tobacco dependence ? Counseled on cessation, offered nicotine patch for tobacco cravings 13. Severe protein-calorie malnutrition in the context of chronic disease/debility related to alcohol dependence, pancreatitis/inflammation, altered GI function, inadequate oral/energy intake, weight loss and Hyperglycemia as evidenced by ~16% unintentional weight loss x 6 months, BMI 17.6, moderate muscle wasting and fat depletion in the clavicle, face, arms and legs, HgbA1C 14%, PO meeting less than 75% estimated nutrition needs. Patient was seen in consultation by dietary notes reviewed 14. DVT prophylaxis Patient on apixaban Time spent in the patient's overall evaluation,decision-making process, review of diagnostic data, adjustment of management, discussion with other providers, nursing nursing and ancillary staff involved in patient's care documentation, 38 Minutes Medications at Discharge Home Medications atorvastatin 10 mg tablet 10 mg PO DAILY CHOLESTEROL 10/17/20 dapagliflozin propanediol 10 mg tablet (Farxiga) 10 mg PO DAILY DIABETES 09/30/21 multivitamin 1 tab PO DAILY SUPPLEMENT 11/11/21 gabapentin 300 mg capsule 300 mg PO DAILY NEUROPATHY 11/14/22 metformin 500 mg tablet,extended release 24 hr 500 mg PO DAILY DIABETES 11/15/22 folic acid 1 mg tablet 1 mg PO DAILY@0800 supplement #0 tabs 05/20/23 thiamine HCl (vitamin B1) 100 mg tablet (Vitamin B-1) 100 mg PO DAILYCM vitamin #0 tabs 05/20/23 pantoprazole 40 mg tablet,delayed release 40 mg PO BID reflux #60 tabs 06/27/23 ferrous sulfate 325 mg (65 mg iron) tablet (FeroSul) 325 mg PO DAILY supplement 06/30/24 spironolactone 25 mg tablet 25 mg PO DAILY diuretic 30 days #30 tabs 07/06/24 L.acidophil,salivari-Bifido bifidum-Strep thermoph 175 mg capsule 1 cap PO BID Probiotic 08/01/24 furosemide 20 mg tablet 40 mg (2 x 20 mg) PO DAILY 30 days #60 tabs 08/03/24 sacubitril 24 mg-valsartan 26 mg tablet (Entresto) 1 tab PO BID #60 tabs 08/03/24 rrmimy-cvqtlkje-jvbztjf 24,000-76,000-120,000 unit capsule,delayed rel (Creon) 1 cap PO BIDCM 08/29/24 metoprolol succinate 25 mg tablet,extended release 24 hr 25 mg PO DAILY blood pressure #30 tabs 10/12/24 OXYGEN - Supplemental ([facility] INFORMATIONAL USE ONLY) 10/17/24 apixaban 5 mg tablet (Eliquis) 5 mg PO BID 12/09/24 insulin glargine-yfgn 100 unit/mL (3 mL) subcutaneous pen 20 unit (0.2 mL) subcut DAILY #15 mL 12/11/24 pen needle, diabetic 31 gauge x 5/32 #100 ea 12/11/24 Physical Exam Narrative GENERAL: cooperative HEENT: Atraumatic; normocephalic EYES; Anicteric, Normal Conjunctiva NECK; supple, normal thyroid, RESPIRATORY: Diminished to auscultation CARDIOVASCULAR: Regular S1 S2, GI: soft, normoactive bowel sounds, : No Renal angle tenderness; EXTREMITIES: No edema, no clubbing, MUSCULOSKELETAL: muscle wasting NEURO: Awake; no lateralizing signs. SKIN: No Rash PSYCH; Flat affect Medical Records Data Medical Nutrition Assessment Dietitian: Malnutrition Criteria Met Start: 12/10/24 15:10 Freq: Status: Active Protocol: Document 12/10/24 15:11 RMA (Rec: 12/10/24 15:11 RMA [id number]) Nutrition Malnutrition Evidence of Yes Malnutrition Exists Malnutrition (severe Chronic ): Evidenced By Suboptimal Energy Intake (Severe),Weight Loss (Severe), Physical Changes (Moderate) Clinical Problem Chronic Disease or Condition Related Malnutrition Etiology Severe protein-calorie malnutrition in the context of chronic disease/debility related to alcohol dependence, pancreatitis/inflammation, altered GI function, inadequate oral/energy intake, weight loss and hyperglycemia Signs/Symptoms as evidenced by ~16% unintentional weight loss x 6 months, BMI 17.6, moderate muscle wasting and fat depletion in the clavicle, face, arms and legs, HgbA1C 14%, PO meeting less than 75% estimated nutrition needs Status Active Problem Recommendation Dietitian Will change diet to carbohydrate-controlled/cardiac/fat Recommendations/ -restricted. Changes Will continue 120mL glucerna shake 3 times per day w/ medpass as ordered. Will add 240mL glucerna shake w/ breakfast tray. Trend weights closely and follow-up with diet education as needed. Weight / BMI Weight Weight: 55.8 kg Body Mass Index (BMI) 17.6 ABG / Lab / Microbiology Data 12/10/24 06:01 12/11/24 07:28 Laboratory: Laboratory Results - last 24 hr 12/10/24 06:01: WBC 12.4 H, RBC 2.61 L, Hgb 8.8 L, Hct 26.7 L, MCV 102.3 H, MCH 33.7 H, MCHC 33.0 D, RDW Std Deviation 62.9 H, RDW Coeff of Kalpana 16.7 H, Plt Count 134 L, MPV 12.0, Immature Gran % (Auto) 0.500, Neut % (Auto) 82.7 H, Lymph % (Auto) 10.0 L, Gregory % (Auto) 5.7, Eos % (Auto) 0.8, Baso % (Auto) 0.3, Absolute Neuts (auto) 10.2 H, Absolute Lymphs (auto) 1.24, Nucleated RBC % 0 12/10/24 12:07: POC Glucose 422 H 12/10/24 16:20: POC Glucose 223 H 12/10/24 21:38: POC Glucose 255 H 12/11/24 05:59: POC Glucose 254 H 12/11/24 07:28: Sodium 133, Potassium 5.0, Chloride 107, Carbon Dioxide 18.5 L, Anion Gap 7, BUN 16, Creatinine 0.80, Estim Creat Clear Calc 75.56, Est GFR (MDRD) Non-Af 100, BUN/Creatinine Ratio 19.9, Glucose 210 H, Calcium 8.5, Phosphorus 3.4, Magnesium 2.1, Total Bilirubin < 0.15, AST 56 H, ALT 29, Alkaline Phosphatase 114, Total Protein 5.0 L, Albumin 2.9 L, Globulin 2.2, Albumin/Globulin Ratio 1.3 Microbiology: Microbiology 12/09/24 10:26 Mucosa - Nose SARS-CoV-2, Influenza & RSV (PCR) - Final D/C Instructions Discharge Activity: Return to Normal Activity Call your doctor if you observe: Fever of 101 or Higher, Shortness of breath, Fainting spells and Chest pain DC O2, CPAP, BIPAP Needs Home O2 Discharge instructions: No Meaningful Use Info Meaningful Use Meaningful Use Diagnoses (Choose all that apply): None applicable Discharge Plan Admission Admit Date/Time: 12/09/24 12:05 Attending Provider: Conrado Morel Primary Care Provider: Sigrid Call [facility] Consulting Providers: Refugio Rojas Discharge Orders/Prescriptions Prescriptions: New insulin glargine-yfgn 100 unit/mL (3 mL) Insulin Pen 20 unit subcut DAILY Qty: 15 0RF (DME) pen needle, diabetic 31 gauge x 5/32 needle See Rx Instructions .ROUTE .MEDSUPPLY Qty: 100 0RF Rx Instructions: As directed Continued atorvastatin 10 mg tablet 10 mg PO DAILY dapagliflozin propanediol [Farxiga] 10 mg Tablet 10 mg PO DAILY multivitamin Tablet 1 tab PO DAILY gabapentin 300 mg Capsule 300 mg PO DAILY metformin 500 mg tablet extended release 24 hr 500 mg PO DAILY Patient Comments: PT STATES THEY TAKE THIS ONCE DAILY. pantoprazole 40 mg tablet,delayed release (DR/EC) 40 mg PO BID Qty: 60 0RF Eliquis 5 mg tablet 5 mg PO BID thiamine HCl (vitamin B1) [Vitamin B-1] 100 mg Tablet 100 mg PO DAILYCM Qty: 0 0RF folic acid 1 mg Tablet 1 mg PO DAILY@0800 Qty: 0 0RF ferrous sulfate [FeroSul] 325 mg (65 mg iron) tablet 325 mg PO DAILY spironolactone 25 mg Tablet 25 mg PO DAILY 30 Days Qty: 30 2RF L.acidoph,saliva-B.bif-S.therm 175 mg Capsule 1 cap PO BID sacubitril-valsartan [Entresto] 24-26 mg tablet 1 tab PO BID Qty: 60 0RF furosemide 20 mg Tablet 40 mg PO DAILY 30 Days Qty: 60 2RF Creon 24,000-76,000 -120,000 unit Capsule,Delayed Release(Dr/Ec) 1 cap PO BIDCM Patient Comments: med ordered 3x/day. pt states he takes it 'maybe 2x/day' (DME) OXYGEN - Supplemental ([facility] INFORMATIONAL USE ONLY) Gas See Rx Instructions .ROUTE Patient Comments: per case management, verified through [employer], 2LPM continuous Rx Instructions: As directed metoprolol succinate 25 mg tablet extended release 24 hr 25 mg PO DAILY Qty: 30 11RF Referrals / Follow Up: Sigrid Call Stephen, DO [Primary Care Provider, Family Practice] Disposition Disposition (needs filled in before D/C Order can be placed): Home, Self Care Charges/Coding Visit Charges Inpatient E&M: 47442 Disch Hosp >30min
[2024-12-11 12:55] LABS: Anion Gap 10 (5-15); BUN 15 mg/dL (4-19); BUN/Creat Ratio 17.2 RATIO (10-20); Calcium,Total 8.4 mg/dL (7.6-11.0); Carbon Dioxide 15.8 mmol/L (21.0-32.0); Chloride 104 mmol/L (98-108); Estimated Creatinine Clearance 70.29 ml/min (50-250); Glucose 338 mg/dL (70-99); Potassium 4.6 mmol/L (3.3-5.1)
--- NOTE | 2024-12-11 13:25 | CASEMGMT ---
Addendum entered by Rodolfo Horta 12/11/24 14:50: TC to Rebeca to see when she will be here for pt's transportation home. No answer at this time. Original Note: RN ZURI Assessment Face to Face with patient for initial transition planning/care coordination assessment. RN ZURI introduced self and role at [facility], pt voices understanding. Pt is A&Ox4 and is resting comfortably in the chair and is calm. Care providers, pharmacy, and demographics verified. Admitting dx: DKA LACE Strata: 4 PCP: Sigrid Call ([facility]) Specialists: Mariela BUSTILLO, JOVANNY Preferred Pharmacy: [facility] Insurance: [email or web address] A/B, [facility] Prescription Benefit: Yes LNOK: Ezra (Father), Terra (Beto), Rebeca (Cousin) Living Arrangements: Pt lives with his father in a mobile home with 5 steps to enter. Pt reports that he helps care for his 97 y/o father. ADLs/IADLs: Pt states that he is independent and that he just got done walking the halls. Pt denies any current concerns or issues. Transportation: Pt does not drive. Pt reports that his cousin is able to drive him on occasion. Pt states that his Uncle drives him on Fridays as they go out to eat and then to the grocery store. Pt states that he has used transportation through his insurance before but that he has to schedule this at least 4 days ahead of time. Pt states that he has used [facility] Transportation Services in the past. Pt states that he does not have his phone and requests this policy writer sales to call his cousin for transportation. TC to Rebeca who states that she can pick the pt up today but is unsure on a time. Rebeca is aware that the pt has a DC order in. Rebeca also states that she and the pt's daughter are concerned for the pt to go home with the pt's father. This RN CM discussed this with the pt who denies concerns. Pt states that he feels safe going home and denies the need for HH, OP Tx, SNF, or CCN. Pt states that he and his father have support at home through his aunt, uncle, and roman catholic friends. DME: Pt states that his BGM broke and is requesting a new one. BGM and supplies Rx signed by Dr Morel and Rx was given to the pt by the MS3 RN CM. Pt is aware that Dr Morel also sent rxs for an insulin pen and pen needles. Pt and pt's cousin plan to pick all of the equipment up at [facility]. Pt also has access to a FWW. Scale for HF. Cane. Raised Toilet Seat. Home oxygen through [employer] (Verified pt's current orders state 2L Cont.). Pt states that he has a concentrator, portable tanks, pulse ox, and inhaler. This RN CM inquired if the pt's transportation can bring in a portable tank @ [place] since the pt does not have his here at [facility]. Pt educated that [employer] does not prefer to give out tanks in stock to pt's that already have them. Pt states, I don't need the portable tank to go home on. HHC/SNF: Hx at [facility]. Pt reports recent HH history but cannot recall the name of the agency. Pt states that a nurse only came out to his house once and then he canceled the HH. Pt states that he does not want to go to for OP Tx. ETOH/Drugs/Tobacco: Pt states that he used to drink vodka daily but has quit. Pt states that he smokes 3-4 cigarettes per day. Pt denies illicit drug use. Pt denies wanting SW follow up or cessation resources Pt?s goal: Home Plan: Home with new supplies to better care for pt's DM. Follow for updated oxygen rx and transportation needs. Pt states that he feels safe returning home with his father today. At this time, the pt was educated about the following services and then denied the need for HH, OP Tx, SNF, CCN, or Palliative care. Pt denies further questions or concerns at this time. Report given to WILLIAM GILLIS CM. Ivan Horta RN, CM
[2024-12-11 13:47] VITALS: BP 98/62; PULSE 82; RESP 18; TEMP 36.6; O2SAT 100
--- NOTE | 2024-12-11 14:16 | CASEMGMT ---
Addendum entered by Carolyn El 12/11/24 14:49: ELIS KEATING into pt room, pt is aware that his cousin will be here shortly and that the MAINTENANCE AND CUSTODIAN SUPERVISOR will assist him to get dressed. Pt states he doesn't know what this is for and pointed to the rx for BGM. Pt is aware that is for his BGM to test his blood sugar. Pt states he will get filled at [facility] but likely not today. Asked him if he could ask his cousin to stop at [facility] on the way home to fill this as this is the reason he came in, his blood sugars were uncontrolled. Pt is aware that there is a place they can go to for the pharmacy without going all the way in the store. Pt states he will ask his cousin. Explained the importance of this and to check twice daily. Pt verbalized understanding and states he used to check it twice a day. Addendum entered by Carolyn El 12/11/24 14:38: Pt nurse aware that his cousin will be here shortly. Requested MAINTENANCE AND CUSTODIAN SUPERVISOR assist pt to get dressed per nurse request. Original Note: ELIS KEATING into pt room, provided pt with a BGM rx. Pt denies further needs at this time other than asking when his cousin is coming to get him. ELIS KEATING checking with Yeison GILLIS CM.
--- NOTE | 2024-12-13 10:01 | CASEMGMT ---
See ELIS KEATING DC follow-up phone call. This typewriter mechanic received a PA for the patient's Insulin Glargine Rx. TC to the pt at this time. Pt states that, [facility] didn't have everything ready for mixing picker tender, so my cousin went to the store and bought everything else for me. Pt states that he had insulin at his home that he could use, but he has not been able to check his BS due to a malfunctioning glucometer. Pt states that his cousin, Rebeca, bought him a start-up glucometer kit with testing supplies. However, the patient states that it has not been working, so he has not been able to check his BS levels or take his insulin as prescribed. Pt denies any current s/s. TC to [facility] [[email or web address] The pharmacist at [facility] [[email or web address] states that the patient's insulin does NOT require a PA and that it is ready for pickup. [facility] [[email or web address]] also states that they received the glucometer and supplies Rx from the patient, and that those are also ready for pickup. [facility] [[email or web address]] states that the patient's total co-pay is 7$. TC back to the pt at this time and updated. Pt states that he does not have a ride to the pharmacy until Wednesday. Pt states that it is OK to call his cousin to see if she can provide transportation. TC to Rebeca at this time. Rebeca states that she took the patient to [facility] [[email or web address]] after [place] and gave the pharmacy the glucometer and supplies Rx, but it was not ready for filling. Rebeca states that she drove the patient home and then went and bought the patient the glucometer starter kit. Rebeca reports to this typewriter mechanic that the patient had insulin to use at home. Updated Rebeca that the patient's insulin glargine, glucometer, and testing supplies (Lancets, test strips, and EtOH swabs) are all ready for mixing picker tender at [facility] [[email or web address]] with a 7$ co-pay. Rebeca states that she can go pick those up today and bring them to the patient. Rebeca states that she will ensure that the pt has all of his testing supplies functioning before leaving and to make sure the patient has the correct insulin as recently prescribed. Pt's cousin denies further questions. TC back to the pt. No answer, VM left updating the patient that his cousin will be picking up the patient's insulin and testing supplies and deliver them to his home today, and will make sure everything is working appropriately. Ivan JAVIER RN CM
--- NOTE | 2024-12-18 15:51 | CASEMGMT ---
Pt's cousin, Rebeca, calls this RN CM stating that she is on her way to the pt's home. Rebeca states that she believes the pt never picked up his insulin rx from [facility]. Rebeca states that she was going to pick it up for the pt but the pt told her not to and that he was going to pick it up. Rebeca states that she is going to the pt's home to check on him and ensure the pt has all of the equipment he needs to care for his DM. Rebeca reassured that the insulin Glargine is ready for pickup at [facility] and does not require a PA. Rebeca thanks this investigative writer and denies further questions or concerns.
== END 2024-12-11 15:36 | disposition home or self-care (01) | DRG 637 ==
LOC: ED 11:21 → ICU 13:01 → MS3 12-10 12:09
PROVIDERS: Admitting Provider Internal Medicine; Emergency Provider Emergency Medicine; PCP Family Medicine; Visit Provider Internal Medicine
DX: E11.00 Type 2 diabetes mellitus with hyperosmolarity without nonketotic hyperglycemic-hyperosmolar coma (NKHHC) (principal); E43 Unspecified severe protein-calorie malnutrition; K86.0 Alcohol-induced chronic pancreatitis; I50.22 Chronic systolic (congestive) heart failure; E87.1 Hypo-osmolality and hyponatremia; Z68.1 Body mass index [BMI] 19.9 or less, adult; E83.39 Other disorders of phosphorus metabolism; I49.5 Sick sinus syndrome; E83.41 Hypermagnesemia; I11.0 Hypertensive heart disease with heart failure; I35.0 Nonrheumatic aortic (valve) stenosis; E86.0 Dehydration; E87.8 Other disorders of electrolyte and fluid balance, not elsewhere classified; E87.5 Hyperkalemia; K21.9 Gastro-esophageal reflux disease without esophagitis; F17.210 Nicotine dependence, cigarettes, uncomplicated; S70.01XA Contusion of right hip, initial encounter; S40.011A Contusion of right shoulder, initial encounter; W18.30XA Fall on same level, unspecified, initial encounter; I25.2 Old myocardial infarction; E78.00 Pure hypercholesterolemia, unspecified; G89.29 Other chronic pain; Z95.0 Presence of cardiac pacemaker; Z95.2 Presence of prosthetic heart valve; Z91.198 Patient's noncompliance with other medical treatment and regimen for other reason; Z79.84 Long term (current) use of oral hypoglycemic drugs; Z79.899 Other long term (current) drug therapy; Z86.59 Personal history of other mental and behavioral disorders; Z23 Encounter for immunization
CPT/HCPCS: 36415; 70450; 71045; 73030; 73502; 80048; 80051; 80053; 81001; 82010; 82077; 82436; 82550; 82570; 82803; 82947; 82962; 83036; 83605; 83735; 83930; 83935; 84100; 84133; 84156; 84300; 84443; 85025; 87631; 93005; 94640; 94668; 97162; 97166; 97535; 97802; 99285; A4216; J0612; J2405

== ENCOUNTER 2024-12-19 12:57 | Emergency (ER) | payer MEDICARE, MEDICAID, SELFPAY ==
[2024-12-19] VITALS (19 sets, daily range): BP systolic 118–172; BP diastolic 72–106; PULSE 60–83; RESP 10–21; TEMP 36.6–36.7; O2SAT 95–100; BMI 16.3
[2024-12-19 13:36] LABS: SITE Not entered; VBG BASE EXCESS 1 mmol/L (-1.0-3.5); VBG PO2 17 mmHg (25-40); VBG SO2 23 % (50-70); VBG TCO2 28 mmol/L (23-33)
[2024-12-19 13:39] LABS: Hematocrit 32.3 % (40-54); Hemoglobin 11.2 g/dL (13.0-16.5); Immature Granulocytes Count 0.010 X10^3/uL (0.0-0.0); Mean Corp Hgb Conc 34.7 g/dL (32-36); Mean Corpuscular Volume 96.1 fL (80-94); Mean Platelet Vol. 11.6 fl (6.2-12.0); NRBC Flagged by Analyzer 0 % (0-5); Platelet Count 175 K/mm3 (150-450); RBC Distribution Width CV 14.2 % (11.6-14.6); RBC Distribution Width SD 50.2 fl (35.1-43.9); Red Blood Count 3.36 M/mm3 (4.6-6.2); White Blood Count 5.4 K/mm3 (4.4-11.0)
[2024-12-19] MEDS: 0.9% Normal Saline (1000mL) 1,000 ML 999 ML IV ×3 (13:40→16:04)
--- NOTE | 2024-12-19 13:42 | CT_ITS ---
PROCEDURE: ABDOMEN/PELVIS W IV CONT ONLY 12/19/2024 REASON FOR EXAM: ABD PAIN, HX OF chronic PANCREATITIS TECHNIQUE: Procedure Code: [id number] Modality: CT Procedure: ABDOMEN/PELVIS W IV CONT ONLY Coronal and Sagittal reconstruction series were provided. CONTRAST: Isovue-300 VOLUME: 100 mL One or more dose reduction techniques were used (e.g., Automated exposure control, adjustment of the mA and/or kV according to patient size, use of iterative reconstruction technique. RADIATION DOSE SUMMARY: CTDlvol: 18.3 mGy DLP: 653.58 mGycm COMPARISON: October 12, 2024 FINDINGS: Lung bases: Status post aortic valve replacement. Dual-chamber pacemaker. The lung bases are clear. Liver: Hepatomegaly. Stable small cysts in the left lobe of the liver. Fatty infiltration of the liver. Gallbladder: Unremarkable Spleen: Normal size. Pancreas: Dense calcification of the pancreas in keeping with a chronic pancreatitis. Adrenals: Unremarkable Kidneys: Unremarkable Bladder: Unremarkable Bowel: Colonic diverticulosis without diverticulitis. Appendix: The appendix is not identified. There is no inflammatory process identified in the right lower quadrant to suggest appendicitis. Lymph nodes: Unremarkable. Vasculature: Mild diffuse atherosclerotic calcifications are noted. Peritoneum / Retroperitoneum: Unremarkable. Prior right inguinal hernia repair. Bones: Degenerative changes of the spine. CT/Abdomen/Pelvis W IV Cont ONLY IMPRESSION: Findings in keeping with chronic pancreatitis. Hepatomegaly. Stable small cysts in the left lobe of the liver. Fatty infiltr ation of the liver. Scattered sigmoid diverticula. Reading Location: [facility]
--- NOTE | 2024-12-19 13:44 | EX.ED.DYSGE1 ---
HPI History of Present Illness Chief Complaint: Hyperglycemia Narrative Narrative: Patient is a 64-year-old male with past medical history of chronic pancreatitis, pancytopenia, chronic alcohol abuse, seizures, anxiety, diabetes, AAA who presents to the emergency department the chief complaint of not feeling well overall. Patient states that he has been feeling unwell for the past week and notes that he checked his blood glucose and notes that it read high. He states that he is been not taking his diabetic medication as he states he could not afford this. He is complaining of some abdominal discomfort and overall not feeling well. [facility] Medical History Chronic pancreatitis Chronic pancreatitis due to chronic alcoholism Malnutrition Pancytopenia Medically noncompliant Thrombocytopenia Macrocytosis associated with alcohol Ascites due to alcoholic cirrhosis Chronic diarrhea Chronic alcohol abuse Abdominal ascites MALIK (acute kidney injury) Seizures Alcoholic hepatitis Chronic pancreatitis Gastric wall thickening Alcohol dependence Anxiety Diabetes Pancreatitis Myocardial infarct Pacemaker AAA (abdominal aortic aneurysm) Admitted to alcohol detoxification center Alcohol abuse Hx of hypercholesterolemia History of diabetes mellitus Alcohol dependence Substance abuse Smoker Alcoholism Right bundle branch block (RBBB) Non-sustained ventricular tachycardia Thoracic aortic aneurysm SVT (supraventricular tachycardia) Ascending aortic dissection (~2005) Pure hypercholesterolemia Adrenal nodule Hiatal hernia Left carotid bruit Cardiac pacemaker in situ (~06/2016) Essential hypertension Pacemaker Sick sinus syndrome Tobacco use HTN (hypertension) Diabetes mellitus, type II Home Medications Medication Instructions Recorded Last Taken Type atorvastatin 10 mg tablet 10 mg PO DAILY CHOLESTEROL 10/17/20 07/31/24 History multivitamin 1 tab PO DAILY SUPPLEMENT 11/11/21 07/31/24 History gabapentin 300 mg capsule 300 mg PO DAILY NEUROPATHY 11/14/22 07/31/24 History folic acid 1 mg tablet 1 mg PO DAILY@0800 supplement #0 05/20/23 07/31/24 Rx tabs thiamine HCl (vitamin B1) 100 mg 100 mg PO DAILYCM vitamin #0 tabs 05/20/23 07/31/24 Rx tablet (Vitamin B-1) pantoprazole 40 mg tablet,delayed 40 mg PO BID reflux #60 tabs 06/27/23 07/31/24 Rx release ferrous sulfate 325 mg (65 mg 325 mg PO DAILY supplement 06/30/24 07/31/24 History iron) tablet (FeroSul) spironolactone 25 mg tablet 25 mg PO DAILY diuretic 30 days 07/06/24 07/31/24 Rx #30 tabs L.acidophil,salivari-Bifido 1 cap PO BID Probiotic 08/01/24 07/31/24 History bifidum-Strep thermoph 175 mg capsule furosemide 20 mg tablet 40 mg (2 x 20 mg) PO DAILY 30 days 08/03/24 Unknown Rx #60 tabs sacubitril 24 mg-valsartan 26 mg 1 tab PO BID #60 tabs 08/03/24 Unknown Rx tablet (Entresto) ncttpc-pzbrkcjf-boxnyp(pork)24,000-76,000-120,000 1 cap PO BIDCM 08/29/24 Unknown History unit capsule,del rel (Creon) metoprolol succinate 25 mg 25 mg PO DAILY blood pressure #30 10/12/24 Unknown Rx tablet,extended release 24 hr tabs OXYGEN - Supplemental ([facility] 10/17/24 Unknown History INFORMATIONAL USE ONLY) apixaban 5 mg tablet (Eliquis) 5 mg PO BID 12/09/24 Unknown History pen needle, diabetic 31 gauge x #100 ea 12/11/24 Unknown Rx /" dapagliflozin propanediol 10 mg 10 mg PO DAILY DIABETES #30 tabs 12/19/24 Unknown Rx tablet (Farxiga) insulin glargine-yfgn 100 unit/mL 20 unit (0.2 mL) subcut DAILY #15 12/19/24 Unknown Rx (3 mL) subcutaneous pen mL metformin 500 mg tablet,extended 500 mg PO DAILY DIABETES #30 tabs 12/19/24 Unknown Rx release 24 hr Allergy/AdvReac Type Severity Reaction Status Date / Time No Known Allergies Allergy Verified 12/19/24 13:04 Family History Father CAD (coronary artery disease) Mother Dementia Surgical History History of aortic aneurysm repair (~2016) H/O cardiac catheterization History of cataract surgery History of hernia repair History of aortic valve replacement with bioprosthetic valve (~2016) H/O aortic valve replacement Social History household members: family housing: house Smoking Status: Light Smoker (<10/day) alcohol intake: current alcohol intake frequency: 0-2 drinks per day details: Reports currently ~ 2 tall boys daily. substance use type: former substance user caffeine: Yes Type: coffee Number of servings: 3 ROS ROS ED ROS Narrative Constitutional: Complains of headache denies lightness dizziness Eyes: Denies double vision Cardiovascular: Denies chest pain Respiratory: Denies shortness of breath Abdomen: Complains of abdominal pain nausea as noted above : Denies any ear symptoms Neurological: Denies any numbness, weakness, tingling Musculoskeletal: Denies back pain Skin: Denies any rashes or lesions EXAM Physical Exam Narrative Exam Narrative: General: Patient is lying in bed rest comfortably did not appear to be in acute distress Head: Atraumatic, normocephalic Eyes: PERRL bilaterally, EOMI bilaterally, no conjunctival injection noted Neck: Soft, supple, trachea midline Cardiovascular: Regular rate and rhythm Respiratory: Clear to auscultation bilaterally Abdomen: Soft, nondistended, mild tenderness to palpation diffusely throughout the abdomen no rebound or guarding on exam Extremities: +5/5 strength noted in the bilateral lower extremities Neurological: Patient following commands knew that he was at [facility] 2024 Skin: Warm, dry, intact patient has scattered ecchymosis throughout his body Const Vital Signs: 12/19/24 13:00 12/19/24 13:04 12/19/24 14:38 Temperature 97.8 F Temperature Source Oral Pulse Rate 83 62 Respiratory Rate 12 18 Respiratory Effort Normal Non-Labored Respiratory Pattern Normal Blood Pressure 118/82 H 146/83 H Blood Pressure Mean 94 104 Pulse Ox 96 95 Oxygen Delivery Method Room Air Room Air 12/19/24 15:23 12/19/24 15:58 Temperature Temperature Source Pulse Rate 66 60 Respiratory Rate 18 18 Respiratory Effort Respiratory Pattern Blood Pressure 147/81 H 160/93 H Blood Pressure Mean 103 115 Pulse Ox 100 100 Oxygen Delivery Method Room Air Room Air MDM MDM MDM Narrative Medical decision making narrative: Patient is a 64-year-old male who presents to the emergency department the chief complaint of generalized not feeling well and elevated blood glucose on his home monitor. On the differential diagnose includes but not limited to hyperglycemia, DKA, acute on chronic pancreatitis, necrotizing pancreatitis. Once workup is obtained reviewed he will be reevaluated. Patient be given IV fluids, morphine, Zofran Patient CBC reviewed and showed a white blood count is normal 5.4, hemoglobin stable 11.2, platelet count was noted be 175. Patient's venous blood gas showed a pH as normal at 7.36 with bicarb of 28. Patient sodium was 121 this is likely falsely low secondary to his hyperglycemia, potassium was elevated 5.5, creatinine was noted be normal 1.04. Patient glucose was noted be elevated to 722 lactic acid normal at 1.3 AST and ALT 39 and 35 respectively. Patient's lipase was noted 5, beta-hydroxybutyrate was elevated to 1 urinalysis reviewed showed 5 ketones of thousand glucose no evidence of infection. Patient CT head and brain without contrast showed chronic changes no acute findings and CT ab pelvis with IV contrast showed findings consistent with chronic pancreatitis. Hepatomegaly with small stable cyst in the left lobe of the liver scattered diverticula in the sigmoid colon. Patient's repeat blood glucose after 15 units of subcutaneous insulin and 30 cc/kg bolus of IV fluids was noted to be 448. Patient was given another 10 units of subcutaneous insulin here in the emergency department and be reevaluated. I asked social work to see the patient in regards to seeing if the patient can receive assistance at home to help manage his diabetes. Patient states that he has prescriptions at home already for his diabetic medication however he states that he cannot give it to himself and needs help with this. Patient's case will be signed out to oncoming provider to follow-up on repeat glucose pending this improves further and social work evaluates the patient he can likely go home. Patient was given updated prescriptions on his insulin and diabetic medications to ensure that he has adequate amount. He is encouraged to follow-up with his doctor in outpatient setting and return with worsening symptoms or any concerns. He was agreeable this plan all question concerns answered. Lab Data Labs: Laboratory Results - last 24 hr 12/19/24 12/19/24 12/19/24 13:30 15:13 16:03 WBC 5.4 RBC 3.36 L Hgb 11.2 L Hct 32.3 L MCV 96.1 H MCH 33.3 H MCHC 34.7 RDW Std Deviation 50.2 H RDW Coeff of Kalpana 14.2 Plt Count 175 MPV 11.6 Immature Gran % (Auto) 0.200 Neut % (Auto) 77.1 H Lymph % (Auto) 12.1 L Harrison % (Auto) 8.0 Eos % (Auto) 1.1 Baso % (Auto) 1.5 H Absolute Neuts (auto) 4.1 Absolute Lymphs (auto) 0.65 L Nucleated RBC % 0 Sodium 121 L Potassium 5.5 H Chloride 86 L Carbon Dioxide 23.7 Anion Gap 12 BUN 12 Creatinine 1.04 Estim Creat Clear Calc 53.85 Est GFR (MDRD) Non-Af 81 BUN/Creatinine Ratio 11.7 Glucose 722 H* Lactic Acid 1.3 Calcium 9.6 Total Bilirubin 0.37 AST 39 H ALT 35 Alkaline Phosphatase 171 H Total Protein 7.5 Albumin 4.2 Globulin 3.3 Albumin/Globulin Ratio 1.3 Lipase 5 L b-Hydroxybutyric mmol/L 1.0 H Urine Color Yellow Urine Clarity Clear Urine pH 6.5 Ur Specific [place] 1.005 Urine Protein 30 H Urine Glucose (UA) 1000 H Urine Ketones 5 H Urine Occult Blood 10 H Urine Nitrite Negative Urine Bilirubin Negative Urine Urobilinogen Normal Ur Leukocyte Esterase Negative Urine RBC 0 SEEN Urine WBC 0 SEEN Ur Squamous Epith Cells 0 SEEN Urine Bacteria 0 SEEN Urine Mucus 0 SEEN POC Glucose 448 H 12/19/24 16:27 WBC RBC Hgb Hct MCV MCH MCHC RDW Std Deviation RDW Coeff of Kalpana Plt Count MPV Immature Gran % (Auto) Neut % (Auto) Lymph % (Auto) Harrison % (Auto) Eos % (Auto) Baso % (Auto) Absolute Neuts (auto) Absolute Lymphs (auto) Nucleated RBC % Sodium Potassium Chloride Carbon Dioxide Anion Gap BUN Creatinine Estim Creat Clear Calc Est GFR (MDRD) Non-Af BUN/Creatinine Ratio Glucose Lactic Acid Calcium Total Bilirubin AST ALT Alkaline Phosphatase Total Protein Albumin Globulin Albumin/Globulin Ratio Lipase b-Hydroxybutyric mmol/L Urine Color Urine Clarity Urine pH Ur Specific [place] Urine Protein Urine Glucose (UA) Urine Ketones Urine Occult Blood Urine Nitrite Urine Bilirubin Urine Urobilinogen Ur Leukocyte Esterase Urine RBC Urine WBC Ur Squamous Epith Cells Urine Bacteria Urine Mucus POC Glucose 324 H ABG Data ABG results: ABG 12/19/24 13:31 Specimen Type ROSA Sample Site Not entered VBG pH 7.36 VBG pO2 17 L* VBG HCO3 26 VBG Total CO2 28 VBG O2 Sat (Calc) 23 L VBG Base Excess 1 POC Mix VBG pCO2 Pt Tmp 46.5 O2 Delivery Device Not entered Crit Call To/Read Back Yes Blood Gas Notified Whom RIBEIRO Blood Gas Notified Time 13:33:44 Radiography Diagnostic Testing: Clinical Impression(s) from Imaging Studies Abdomen/Pelvis CT 12/19/24 13:42 IMPRESSION: Findings in keeping with chronic pancreatitis. Hepatomegaly. Stable small cysts in the left lobe of the liver. Fatty infiltration of the liver. Scattered sigmoid diverticula. Reading Location: [id number] Brain CT 12/19/24 13:45 IMPRESSION: CHRONIC CHANGES. NO ACUTE FINDINGS. Reading Location: [facility] Discharge Plan Triage Chief Complaint: Hyperglycemia ED Provider: Perez Ribeiro Dx/Rx/DC Orders Clinical Impression: Hyperglycemia, History of chronic pancreatitis, Abdominal pain, Essential hypertension Prescriptions: Continued metformin 500 mg tablet extended release 24 hr 500 mg PO DAILY Qty: 30 0RF dapagliflozin propanediol [Farxiga] 10 mg Tablet 10 mg PO DAILY Qty: 30 0RF insulin glargine-yfgn 100 unit/mL (3 mL) Insulin Pen 20 unit subcut DAILY Qty: 15 0RF No Action atorvastatin 10 mg tablet 10 mg PO DAILY multivitamin Tablet 1 tab PO DAILY gabapentin 300 mg Capsule 300 mg PO DAILY pantoprazole 40 mg tablet,delayed release (DR/EC) 40 mg PO BID Qty: 60 0RF Eliquis 5 mg tablet 5 mg PO BID (DME) pen needle, diabetic 31 gauge x 5/32" needle See Rx Instructions .ROUTE .MEDSUPPLY Qty: 100 0RF Rx Instructions: As directed thiamine HCl (vitamin B1) [Vitamin B-1] 100 mg Tablet 100 mg PO DAILYCM Qty: 0 0RF folic acid 1 mg Tablet 1 mg PO DAILY@0800 Qty: 0 0RF ferrous sulfate [FeroSul] 325 mg (65 mg iron) tablet 325 mg PO DAILY spironolactone 25 mg Tablet 25 mg PO DAILY 30 Days Qty: 30 2RF L.acidoph,saliva-B.bif-S.therm 175 mg Capsule 1 cap PO BID sacubitril-valsartan [Entresto] 24-26 mg tablet 1 tab PO BID Qty: 60 0RF furosemide 20 mg Tablet 40 mg PO DAILY 30 Days Qty: 60 2RF Creon 24,000-76,000 -120,000 unit Capsule,Delayed Release(Dr/Ec) 1 cap PO BIDCM Patient Comments: med ordered 3x/day. pt states he takes it 'maybe 2x/day' (DME) OXYGEN - Supplemental ([facility] INFORMATIONAL USE ONLY) Gas See Rx Instructions .ROUTE Patient Comments: per case management, verified through [employer], 2LPM continuous Rx Instructions: As directed metoprolol succinate 25 mg tablet extended release 24 hr 25 mg PO DAILY Qty: 30 11RF Primary Care Provider: Sigrid Call Referrals: Sigrid Call, DO [Primary Care Provider, Family Practice] Activity Restrictions/Additional Instructions: Take your prescriptions as prescribed. Follow-up with your doctor in the outpatient setting. Return for worsening symptoms or any concerns Print Language: Kinyarwanda Disposition Disposition: Home, Self Care D/C Safety Score for UGIB Assessment Satnam-Blatchford Bleeding Score (GBS): Stratifies upper GI bleeding patients who are "low-risk" and candidates for outpatient management. Sex: Male Hemoglobin, BUN, Recent Vital Signs: Hgb 11.2 g/dL (13.0-16.5) L 12/19/24 13:30 BUN 12 mg/dL (4-19) 12/19/24 13:30 Pulse Rate 60 Blood Pressure 160/93 Total Risk Score: 2 Score Interpretation: Score of 0: A GBS of 0 is a “Low Risk” GI bleed, and is highly sensitive (99.6% in a 2007 retrospective study) for predicting which patients did not require any “medical intervention”: blood transfusion, endoscopy, or surgery. This was confirmed in a 2009 Lanc study where patients with a score of 0 were actually discharged and had no GI bleeding mortality at 6 month followup Score above 0: A GBS greater than zero suggests a “High Risk” GI bleed that is likely to require “medical intervention”: transfusion, endoscopy, or surgery. A higher GBS also correlated with a higher likelihood of needing intervention Scores >/= 6 are associated with >50% risk of needing intervention D/C Safety Score for LGIB Assessment Assessment Tool: Readmission and adverse event risk in patients with acute lower GI bleeding. Age, in years: 40-69 Sex: Male Hemoglobin and Recent Vital Signs: Hgb 11.2 g/dL (13.0-16.5) L 12/19/24 13:30 Pulse Rate 60 12/19/24 15:58 Blood Pressure 160/93 12/19/24 15:58 Probability of safe discharge: 99% Total Risk Score: 2 Score Interpretation: Probability Percentage of safe discharge (absence of rebleeding, blood transfusion, therapeutic intervention, 28 day readmission, or ) Score of 8 or below: Consider discharge, with appropriate precautions. Score of 9 or above: Discharge NOT recommended. Consider admission with further workup and resuscitation as necessary.
--- NOTE | 2024-12-19 13:45 | CT_ITS ---
PROCEDURE: BRAIN/HEAD WITHOUT CONTRAST 12/19/2024 REASON FOR EXAM: HEADACHE TECHNIQUE: Procedure Code: CTBR Modality: CT Procedure: BRAIN/HEAD WITHOUT CONTRAST Coronal and Sagittal reconstruction series were provided. One or more dose reduction techniques were used (e.g., Automated exposure control, adjustment of the mA and/or kV according to patient size, use of iterative reconstruction technique. RADIATION DOSE SUMMARY: CTDlvol: 44.99 mGy DLP: 829.85 mGycm COMPARISON: December 09, 2024 FINDINGS: Brain: Low density in the periventricular white matter suggests mild chronic small vessel ischemic changes. This is worse in the posterior occipital lobes. CSF Spaces: Mild generalized cerebral atrophy Sinuses/Mastoids: Clear at visualized levels Bones: Unremarkable CT/Brain/Head without Contrast IMPRESSION: CHRONIC CHANGES. NO ACUTE FINDINGS. Reading Location: [id number]
[2024-12-19 14:15] LABS: BETA-HYDROXYBUTYRATE 1.0 mmol/L (0.0-0.3); Lipase 5 U/L (13-75)
[2024-12-19 14:20] LABS: AST(SGOT) 39 U/L (<=37); Alanine Aminotransfer ALT/SGPT 35 U/L (<=46); Albumin, Serum 4.2 g/dL (3.4-4.8); Alkaline Phosphatase 171 U/L (40-129); Anion Gap 12 (5-15); BUN 12 mg/dL (4-19); BUN/Creat Ratio 11.7 RATIO (10-20); Calcium,Total 9.6 mg/dL (7.6-11.0); Carbon Dioxide 23.7 mmol/L (21.0-32.0); Chloride 86 mmol/L (98-108); Estimated Creatinine Clearance 53.85 ml/min (50-250); Globulin 3.3 g/dL (2.2-4.2); Glucose 722 mg/dL (70-99); Potassium 5.5 mmol/L (3.3-5.1)
[2024-12-19 15:19] LABS: Mucous, Urine 0 SEEN /hpf (<or=2+); Red Blood Cells-Urine 0 SEEN /hpf (0-5); Squamous Epithelial Cells - UA 0 SEEN /hpf (0-5)
[2024-12-19 15:20] LABS: Color, Urine Yellow (Yellow); Glucose, Dipstick 1000 mg/dl (Normal); Ketone-Dipstick 5 mg/dl (Negative); Leukocyte Esterase-Dipstick Negative /ul (Negative); Nitrite-Dipstick Negative (Negative); Occult Blood-Urine 10 /ul (Negative); Protein-Dipstick 30 mg/dl (Negative); Specific Gravity, Urine 1.005 (1.002-1.030); Urine Bilirubin Dipstick Negative (Negative)
[2024-12-19 18:19] LABS: Anion Gap 9 (5-15); BUN 10 mg/dL (4-19); BUN/Creat Ratio 12.6 RATIO (10-20); Calcium,Total 8.4 mg/dL (7.6-11.0); Carbon Dioxide 22.9 mmol/L (21.0-32.0); Chloride 100 mmol/L (98-108); Estimated Creatinine Clearance 70.01 ml/min (50-250); Glucose 150 mg/dL (70-99); Potassium 3.9 mmol/L (3.3-5.1)
--- NOTE | 2024-12-19 18:30 | EX.ED.DYSGE1 ---
HPI History of Present Illness Chief Complaint: Hyperglycemia [facility] Medical History Chronic pancreatitis Chronic pancreatitis due to chronic alcoholism Malnutrition Pancytopenia Medically noncompliant Thrombocytopenia Macrocytosis associated with alcohol Ascites due to alcoholic cirrhosis Chronic diarrhea Chronic alcohol abuse Abdominal ascites AMLIK (acute kidney injury) Seizures Alcoholic hepatitis Chronic pancreatitis Gastric wall thickening Alcohol dependence Anxiety Diabetes Pancreatitis Myocardial infarct Pacemaker AAA (abdominal aortic aneurysm) Admitted to alcohol detoxification center Alcohol abuse Hx of hypercholesterolemia History of diabetes mellitus Alcohol dependence Substance abuse Smoker Alcoholism Right bundle branch block (RBBB) Non-sustained ventricular tachycardia Thoracic aortic aneurysm SVT (supraventricular tachycardia) Ascending aortic dissection (~2005) Pure hypercholesterolemia Adrenal nodule Hiatal hernia Left carotid bruit Cardiac pacemaker in situ (~06/2016) Essential hypertension Pacemaker Sick sinus syndrome Tobacco use HTN (hypertension) Diabetes mellitus, type II Home Medications Medication Instructions Recorded Last Taken Type atorvastatin 10 mg tablet 10 mg PO DAILY CHOLESTEROL 10/17/20 07/31/24 History multivitamin 1 tab PO DAILY SUPPLEMENT 11/11/21 07/31/24 History gabapentin 300 mg capsule 300 mg PO DAILY NEUROPATHY 11/14/22 07/31/24 History folic acid 1 mg tablet 1 mg PO DAILY@0800 supplement #0 05/20/23 07/31/24 Rx tabs thiamine HCl (vitamin B1) 100 mg 100 mg PO DAILYCM vitamin #0 tabs 05/20/23 07/31/24 Rx tablet (Vitamin B-1) pantoprazole 40 mg tablet,delayed 40 mg PO BID reflux #60 tabs 06/27/23 07/31/24 Rx release ferrous sulfate 325 mg (65 mg 325 mg PO DAILY supplement 06/30/24 07/31/24 History iron) tablet (FeroSul) spironolactone 25 mg tablet 25 mg PO DAILY diuretic 30 days 07/06/24 07/31/24 Rx #30 tabs L.acidophil,salivari-Bifido 1 cap PO BID Probiotic 08/01/24 07/31/24 History bifidum-Strep thermoph 175 mg capsule furosemide 20 mg tablet 40 mg (2 x 20 mg) PO DAILY 30 days 08/03/24 Unknown Rx #60 tabs sacubitril 24 mg-valsartan 26 mg 1 tab PO BID #60 tabs 08/03/24 Unknown Rx tablet (Entresto) tgkwpk-lvhfyigr-lrspso(pork)24,000-76,000-120,000 1 cap PO BIDCM 08/29/24 Unknown History unit capsule,del rel (Creon) metoprolol succinate 25 mg 25 mg PO DAILY blood pressure #30 10/12/24 Unknown Rx tablet,extended release 24 hr tabs OXYGEN - Supplemental ([facility] 10/17/24 Unknown History INFORMATIONAL USE ONLY) apixaban 5 mg tablet (Eliquis) 5 mg PO BID 12/09/24 Unknown History pen needle, diabetic 31 gauge x #100 ea 12/11/24 Unknown Rx " dapagliflozin propanediol 10 mg 10 mg PO DAILY DIABETES #30 tabs 12/19/24 Unknown Rx tablet (Farxiga) insulin glargine-yfgn 100 unit/mL 20 unit (0.2 mL) subcut DAILY #15 12/19/24 Unknown Rx (3 mL) subcutaneous pen mL metformin 500 mg tablet,extended 500 mg PO DAILY DIABETES #30 tabs 12/19/24 Unknown Rx release 24 hr Allergy/AdvReac Type Severity Reaction Status Date / Time No Known Allergies Allergy Verified 12/19/24 13:04 Family History Father CAD (coronary artery disease) Mother Dementia Surgical History History of aortic aneurysm repair (~2016) H/O cardiac catheterization History of cataract surgery History of hernia repair History of aortic valve replacement with bioprosthetic valve (~2016) H/O aortic valve replacement Social History household members: family housing: house Smoking Status: Light Smoker (<10/day) alcohol intake: current alcohol intake frequency: 0-2 drinks per day details: Reports currently ~ 2 tall boys daily. substance use type: former substance user caffeine: Yes Type: coffee Number of servings: 3 EXAM Physical Exam Const Vital Signs: 12/19/24 13:00 12/19/24 13:04 12/19/24 14:38 Temperature 97.8 F Temperature Source Oral Pulse Rate 83 62 Respiratory Rate 12 18 Respiratory Effort Normal Non-Labored Respiratory Pattern Normal Blood Pressure 118/82 H 146/83 H Blood Pressure Mean 94 104 Pulse Ox 96 95 Oxygen Delivery Method Room Air Room Air 12/19/24 14:42 12/19/24 14:45 12/19/24 15:00 Temperature Temperature Source Pulse Rate 70 60 Respiratory Rate 13 13 Respiratory Effort Respiratory Pattern Blood Pressure 142/76 H 132/102 H Blood Pressure Mean 92 111 Pulse Ox Oxygen Delivery Method 12/19/24 15:00 12/19/24 15:15 12/19/24 15:15 Temperature Temperature Source Pulse Rate 81 67 Respiratory Rate 14 20 H Respiratory Effort Respiratory Pattern Blood Pressure 132/102 H 147/81 H 147/81 H Blood Pressure Mean 111 100 100 Pulse Ox 100 Oxygen Delivery Method 12/19/24 15:23 12/19/24 15:30 12/19/24 15:45 Temperature Temperature Source Pulse Rate 66 65 Respiratory Rate 18 12 Respiratory Effort Respiratory Pattern Blood Pressure 147/81 H 157/90 H 160/93 H Blood Pressure Mean 103 107 111 Pulse Ox 100 100 Oxygen Delivery Method Room Air 12/19/24 15:58 12/19/24 16:00 12/19/24 16:15 Temperature Temperature Source Pulse Rate 60 73 60 Respiratory Rate 18 15 13 Respiratory Effort Respiratory Pattern Blood Pressure 160/93 H 172/106 H 154/87 H Blood Pressure Mean 115 124 103 Pulse Ox 100 100 100 Oxygen Delivery Method Room Air 12/19/24 16:30 12/19/24 16:45 12/19/24 17:00 Temperature Temperature Source Pulse Rate 63 61 70 Respiratory Rate 10 L 12 13 Respiratory Effort Respiratory Pattern Blood Pressure 169/93 H 152/95 H 150/95 H Blood Pressure Mean 112 108 111 Pulse Ox Oxygen Delivery Method 12/19/24 17:17 12/19/24 17:30 12/19/24 18:04 Temperature Temperature Source Pulse Rate 63 71 65 Respiratory Rate 13 21 H 18 Respiratory Effort Respiratory Pattern Blood Pressure Blood Pressure Mean Pulse Ox 100 100 98 Oxygen Delivery Method Room Air MDM MDM Lab Data Labs: Laboratory Results - last 24 hr 12/19/24 12/19/24 12/19/24 13:30 15:13 16:03 WBC 5.4 RBC 3.36 L Hgb 11.2 L Hct 32.3 L MCV 96.1 H MCH 33.3 H MCHC 34.7 RDW Std Deviation 50.2 H RDW Coeff of Kalpana 14.2 Plt Count 175 MPV 11.6 Immature Gran % (Auto) 0.200 Neut % (Auto) 77.1 H Lymph % (Auto) 12.1 L Coryell % (Auto) 8.0 Eos % (Auto) 1.1 Baso % (Auto) 1.5 H Absolute Neuts (auto) 4.1 Absolute Lymphs (auto) 0.65 L Nucleated RBC % 0 Sodium 121 L Potassium 5.5 H Chloride 86 L Carbon Dioxide 23.7 Anion Gap 12 BUN 12 Creatinine 1.04 Estim Creat Clear Calc 53.85 Est GFR (MDRD) Non-Af 81 BUN/Creatinine Ratio 11.7 Glucose 722 H* Lactic Acid 1.3 Calcium 9.6 Total Bilirubin 0.37 AST 39 H ALT 35 Alkaline Phosphatase 171 H Total Protein 7.5 Albumin 4.2 Globulin 3.3 Albumin/Globulin Ratio 1.3 Lipase 5 L b-Hydroxybutyric mmol/L 1.0 H Urine Color Yellow Urine Clarity Clear Urine pH 6.5 Ur Specific Atka 1.005 Urine Protein 30 H Urine Glucose (UA) 1000 H Urine Ketones 5 H Urine Occult Blood 10 H Urine Nitrite Negative Urine Bilirubin Negative Urine Urobilinogen Normal Ur Leukocyte Esterase Negative Urine RBC 0 SEEN Urine WBC 0 SEEN Ur Squamous Epith Cells 0 SEEN Urine Bacteria 0 SEEN Urine Mucus 0 SEEN POC Glucose 448 H 12/19/24 12/19/24 12/19/24 16:27 17:25 17:30 WBC RBC Hgb Hct MCV MCH MCHC RDW Std Deviation RDW Coeff of Kalpana Plt Count MPV Immature Gran % (Auto) Neut % (Auto) Lymph % (Auto) Coryell % (Auto) Eos % (Auto) Baso % (Auto) Absolute Neuts (auto) Absolute Lymphs (auto) Nucleated RBC % Sodium 131 L Potassium 3.9 Chloride 100 Carbon Dioxide 22.9 Anion Gap 9 BUN 10 Creatinine 0.80 Estim Creat Clear Calc 70.01 Est GFR (MDRD) Non-Af 100 BUN/Creatinine Ratio 12.6 Glucose 150 H Lactic Acid Calcium 8.4 Total Bilirubin AST ALT Alkaline Phosphatase Total Protein Albumin Globulin Albumin/Globulin Ratio Lipase b-Hydroxybutyric mmol/L Urine Color Urine Clarity Urine pH Ur Specific [place]ka Urine Protein Urine Glucose (UA) Urine Ketones Urine Occult Blood Urine Nitrite Urine Bilirubin Urine Urobilinogen Ur Leukocyte Esterase Urine RBC Urine WBC Ur Squamous Epith Cells Urine Bacteria Urine Mucus POC Glucose 324 H 168 H ABG Data ABG results: ABG 12/19/24 13:31 Specimen Type ROSA Sample Site Not entered VBG pH 7.36 VBG pO2 17 L* VBG HCO3 26 VBG Total CO2 28 VBG O2 Sat (Calc) 23 L VBG Base Excess 1 POC Mix VBG pCO2 Pt Tmp 46.5 O2 Delivery Device Not entered Crit Call To/Read Back Yes Blood Gas Notified Whom RIBEIRO Blood Gas Notified Time 13:33:44 Radiography Diagnostic Testing: Clinical Impression(s) from Imaging Studies Abdomen/Pelvis CT 12/19/24 13:42 IMPRESSION: Findings in keeping with chronic pancreatitis. Hepatomegaly. Stable small cysts in the left lobe of the liver. Fatty infiltration of the liver. Scattered sigmoid diverticula. Reading Location: [id number] 12/19/24 13:45 IMPRESSION: CHRONIC CHANGES. NO ACUTE FINDINGS. Reading Location: [facility] Discharge Plan Triage Chief Complaint: Hyperglycemia ED Provider: Perez Ribeiro Dx/Rx/DC Orders Clinical Impression: Hyperglycemia, History of chronic pancreatitis, Abdominal pain, Essential hypertension Instructions: ED Diabetic Hyperglycemia, ED High Blood Pressure Hypertension, ED Abdominal Pain Unkn Cause Male... Prescriptions: Continued metformin 500 mg tablet extended release 24 hr 500 mg PO DAILY Qty: 30 0RF dapagliflozin propanediol [Farxiga] 10 mg Tablet 10 mg PO DAILY Qty: 30 0RF insulin glargine-yfgn 100 unit/mL (3 mL) Insulin Pen 20 unit subcut DAILY Qty: 15 0RF No Action atorvastatin 10 mg tablet 10 mg PO DAILY multivitamin Tablet 1 tab PO DAILY gabapentin 300 mg Capsule 300 mg PO DAILY pantoprazole 40 mg tablet,delayed release (DR/EC) 40 mg PO BID Qty: 60 0RF Eliquis 5 mg tablet 5 mg PO BID (DME) pen needle, diabetic 31 gauge x 5/32" needle See Rx Instructions .ROUTE .MEDSUPPLY Qty: 100 0RF Rx Instructions: As directed thiamine HCl (vitamin B1) [Vitamin B-1] 100 mg Tablet 100 mg PO DAILYCM Qty: 0 0RF folic acid 1 mg Tablet 1 mg PO DAILY@0800 Qty: 0 0RF ferrous sulfate [FeroSul] 325 mg (65 mg iron) tablet 325 mg PO DAILY spironolactone 25 mg Tablet 25 mg PO DAILY 30 Days Qty: 30 2RF L.acidoph,saliva-B.bif-S.therm 175 mg Capsule 1 cap PO BID sacubitril-valsartan [Entresto] 24-26 mg tablet 1 tab PO BID Qty: 60 0RF furosemide 20 mg Tablet 40 mg PO DAILY 30 Days Qty: 60 2RF Creon 24,000-76,000 -120,000 unit Capsule,Delayed Release(Dr/Ec) 1 cap PO BIDCM Patient Comments: med ordered 3x/day. pt states he takes it 'maybe 2x/day' (DME) OXYGEN - Supplemental ([facility] INFORMATIONAL USE ONLY) Gas See Rx Instructions .ROUTE Patient Comments: per case management, verified through [employer], 2LPM continuous Rx Instructions: As directed metoprolol succinate 25 mg tablet extended release 24 hr 25 mg PO DAILY Qty: 30 11RF Primary Care Provider: Sigrid Call Referrals: Sigrid Call, DO [Primary Care Provider, [facility]] - 3-5 Days Activity Restrictions/Additional Instructions: Take your prescriptions as prescribed. Follow-up with your doctor in the outpatient setting. Return for worsening symptoms or any concerns Print Language: Persian Disposition Disposition: Home, Self Care D/C Safety Score for UGIB Assessment Satnam-Blatchford Bleeding Score (GBS): Stratifies upper GI bleeding patients who are "low-risk" and candidates for outpatient management. Sex: Male Hemoglobin, BUN, Recent Vital Signs: Hgb 11.2 g/dL (13.0-16.5) L 12/19/24 13:30 BUN 10 mg/dL (4-19) 12/19/24 17:25 Pulse Rate 65 Blood Pressure 150/95 Total Risk Score: 2 Score Interpretation: Score of 0: A GBS of 0 is a “Low Risk” GI bleed, and is highly sensitive (99.6% in a 2007 retrospective study) for predicting which patients did not require any “medical intervention”: blood transfusion, endoscopy, or surgery. This was confirmed in a 2009 [facility] study where patients with a score of 0 were actually discharged and had no GI bleeding mortality at 6 month followup Score above 0: A GBS greater than zero suggests a “High Risk” GI bleed that is likely to require “medical intervention”: transfusion, endoscopy, or surgery. A higher GBS also correlated with a higher likelihood of needing intervention Scores >/= 6 are associated with >50% risk of needing intervention D/C Safety Score for LGIB Assessment Assessment Tool: Readmission and adverse event risk in patients with acute lower GI bleeding. Age, in years: 40-69 Sex: Male Hemoglobin and Recent Vital Signs: Hgb 11.2 g/dL (13.0-16.5) L 12/19/24 13:30 Pulse Rate 65 12/19/24 18:04 Blood Pressure 150/95 12/19/24 17:00 Probability of safe discharge: 99% Total Risk Score: 2 Score Interpretation: Probability Percentage of safe discharge (absence of rebleeding, blood transfusion, therapeutic intervention, 28 day readmission, or ) Score of 8 or below: Consider discharge, with appropriate precautions. Score of 9 or above: Discharge NOT recommended. Consider admission with further workup and resuscitation as necessary.
--- NOTE | 2024-12-19 18:44 | CM.ED ---
Social Work Reason for consult: discharge planning SW met with patient to discuss barriers to discharge. Patient initially stated that he did not fill his insulin prescription due to the cost being too high. SW was able to confirm through previous CM documentation that patients insulin and supplies were available at the pharmacy for $7.00. Patient then stated he was not able to pick them up, SW again was able to confirm through previous CM documentation that patients cousin was planning to berry picker supplies and insulin but patient told her not to. When asked about this, patient stated he did not know why he would tell his cousin that, that sometimes he gets confused. Patient then stated that he was unable to check his blood sugar twice a day and give himself insulin properly. SW asked about a continuos blood sugar monitor, patient stated he had one but he took it off. Patient stated he wanted someone to come to his home twice a day to check his blood sugar and give him insulin. SW explained that there is not a service that would be able to provide this without paying privately, patient denied being able to afford this. SW discussed patient going to a snf, patient states that he was not interested, that he was able to cook, clean, do laundry, and care for his own ADLs. When asked what barrier existed that patient was unable to manage his insulin, patient was unable to name a concern. SW offered to place a referral for [facility], patient stated he had them once but the worker came to his house and stayed 1.5 hours and he did not like that. SW reinterated the benefits of [facility], patient then stated he was willing to try again. [facility] referral placed. Referral also placed to [facility] for medication management. Patient reported no further needs. Taylor Bucio, WOOD HEEL BACK LINER, ATTENDING PATHOLOGIST
[2024-12-19] MEDS: Insulin Glargine-YFGN 100 UNIT/ML Pen 20 UNIT SC (18:55)
--- NOTE | 2024-12-20 10:56 | CM.ED ---
Social Work SW sent a referral to [facility] with patients permission due to patient requesting services at home. SW received notification this morning that [facility] was able to contact patient and patient declined services. Taylor Bucio, AUTO DRIVER, SUPERVISOR FINISHING DEPARTMENT
--- NOTE | 2024-12-22 11:46 | CCN.REFER ---
[facility] HOME VISIT SCHEDULED FOR 12/27/24 @ 12P
== END 2024-12-19 19:40 | disposition home or self-care (01) ==
PROVIDERS: Emergency Provider Emergency Medicine; PCP Family Medicine; Visit Provider Emergency Medicine
DX: E11.65 Type 2 diabetes mellitus with hyperglycemia (principal); Z79.4 Long term (current) use of insulin; E78.00 Pure hypercholesterolemia, unspecified; I10 Essential (primary) hypertension; F17.200 Nicotine dependence, unspecified, uncomplicated; I25.2 Old myocardial infarction; Z95.0 Presence of cardiac pacemaker; Z79.899 Other long term (current) drug therapy; Z79.84 Long term (current) use of oral hypoglycemic drugs; Z95.3 Presence of xenogenic heart valve
CPT/HCPCS: 70450; 74177; 80048; 80053; 81001; 82010; 82803; 82962; 83605; 83690; 85025; 96361; 96372; 96374; 96375; 99285; Q9967; A4216; J2405

== ENCOUNTER 2025-01-20 13:03 | Emergency (ER) | payer MEDICARE, MEDICAID, SELFPAY ==
[2025-01-20 13:04] VITALS: BP 125/79; PULSE 61; RESP 18; TEMP 35.7; O2SAT 100; BMI 19.3
--- NOTE | 2025-01-20 13:05 | EX.ED.DYSGE1 ---
HPI History of Present Illness Chief Complaint: Hypoglycemia Narrative Narrative: Patient is a 64-year-old male presenting to the emergency department for hypoglycemia. Patient has a past medical history of cirrhosis, CHF, HHS, diabetes, hyperlipidemia, aortic aneurysm repair, chronic pancreatitis, hypertension, medically noncompliant, alcohol withdrawal, nonsustained V. tach, pacemaker placement. Patient states that this morning he checked his glucose and it was in the 300s so he decided to double his insulin taking 20 units of his long-acting insulin and 20 units of his short acting insulin after taking his morning 20 units glargine. He states he then started to make a pizza because his glucose was low. He thinks he called his daughter to call EMS but he is not sure of the events after this. EMS arrived and his glucose was in the 40s and he was confused. They gave about 170 mL of D10 and on recheck by them it was 245. On recheck here on arrival it is in the 80s. Patient normally lives at home with his father who helps care for him however he is currently in a rehab facility receiving physical therapy. Son states that he is supposed to return home tomorrow. He states he feels back to baseline now. He denies any recent fever, chills, chest pain, shortness of breath, abdominal pain, nausea, vomiting, diarrhea. Denies any dysuria or hematuria. [facility] Medical History (Updated 01/20/25 @ 14:[address] Ashley Alvarado MD) Hypoglycemia Chronic pancreatitis Chronic pancreatitis due to chronic alcoholism Malnutrition Pancytopenia Medically noncompliant Thrombocytopenia Macrocytosis associated with alcohol Ascites due to alcoholic cirrhosis Chronic diarrhea Chronic alcohol abuse Abdominal ascites MALIK (acute kidney injury) Seizures Alcoholic hepatitis Chronic pancreatitis Gastric wall thickening Alcohol dependence Anxiety Diabetes Pancreatitis Myocardial infarct Pacemaker AAA (abdominal aortic aneurysm) Admitted to alcohol detoxification center Alcohol abuse Hx of hypercholesterolemia History of diabetes mellitus Alcohol dependence Substance abuse Smoker Alcoholism Right bundle branch block (RBBB) Non-sustained ventricular tachycardia Thoracic aortic aneurysm SVT (supraventricular tachycardia) Ascending aortic dissection (~2005) Pure hypercholesterolemia Adrenal nodule Hiatal hernia Left carotid bruit Cardiac pacemaker in situ (~06/2016) Essential hypertension Pacemaker Sick sinus syndrome Tobacco use HTN (hypertension) Diabetes mellitus, type II Home Medications ?Medication ?Instructions ?Recorded ?Last Taken ?Type multivitamin 1 tab PO DAILY SUPPLEMENT 11/11/21 07/31/24 History gabapentin 300 mg capsule 300 mg PO DAILY NEUROPATHY 11/14/22 07/31/24 History folic acid 1 mg tablet 1 mg PO DAILY@0800 supplement #0 05/20/23 07/31/24 Rx tabs thiamine HCl (vitamin B1) 100 mg 100 mg PO DAILYCM vitamin #0 tabs 05/20/23 07/31/24 Rx tablet (Vitamin B-1) pantoprazole 40 mg tablet,delayed 40 mg PO BID reflux #60 tabs 06/27/23 07/31/24 Rx release ferrous sulfate 325 mg (65 mg 325 mg PO DAILY supplement 06/30/24 07/31/24 History iron) tablet (FeroSul) L.acidophil,salivari-Bifido 1 cap PO BID Probiotic 08/01/24 07/31/24 History bifidum-Strep thermoph 175 mg capsule uqwals-hwfbidld-vbtrfr(pork)24,000-76,000-120,000 1 cap PO BIDCM 08/29/24 Unknown History unit capsule,del rel (Creon) OXYGEN - Supplemental ([facility] 10/17/24 Unknown History INFORMATIONAL USE ONLY) pen needle, diabetic 31 gauge x #100 ea 12/11/24 Unknown Rx insulin glargine-yfgn 100 unit/mL 20 unit (0.2 mL) subcut DAILY #15 12/19/24 Unknown Rx (3 mL) subcutaneous pen mL metformin 500 mg tablet,extended 500 mg PO DAILY DIABETES #30 tabs 12/19/24 Unknown Rx release 24 hr aspirin 81 mg tablet,delayed 81 mg PO QDAY 12/28/24 Unknown History release (Adult Low Dose Aspirin) atorvastatin 10 mg tablet 10 mg PO DAILY CHOLESTEROL #90 tabs 12/28/24 Unknown Rx dapagliflozin propanediol 10 mg 10 mg PO DAILY DIABETES #30 tabs 12/28/24 Unknown Rx tablet (Farxiga) furosemide 20 mg tablet 40 mg (2 x 20 mg) PO DAILY #180 12/28/24 Unknown Rx tabs metoprolol succinate 25 mg 25 mg PO DAILY blood pressure #90 12/28/24 Unknown Rx tablet,extended release 24 hr tabs sacubitril 24 mg-valsartan 26 mg 1 tab PO BID #60 tabs 12/28/24 Unknown Rx tablet (Entresto) spironolactone 25 mg tablet 25 mg PO DAILY diuretic #90 tabs 12/28/24 Unknown Rx Allergy/AdvReac Type Severity Reaction Status Date / Time No Known Allergies Allergy Verified 01/20/25 13:09 Family History Father CAD (coronary artery disease) Mother Dementia Surgical History History of aortic aneurysm repair (~2016) H/O cardiac catheterization History of cataract surgery History of hernia repair History of aortic valve replacement with bioprosthetic valve (~2016) H/O aortic valve replacement Social History household members: family housing: house Smoking Status: Light Smoker (<10/day) alcohol intake: current alcohol intake frequency: 0-2 drinks per day details: Reports currently ~ 2 tall boys daily. substance use type: former substance user caffeine: Yes Type: coffee Number of servings: 3 ROS ROS ED ROS Narrative See HPI EXAM Physical Exam Narrative Exam Narrative: Vital signs: Reviewed General: Alert and oriented x 3. No acute distress. Chronically ill-appearing. Nontoxic. HEENT: Head is normocephalic and atraumatic, sinuses nontender, pupils equal round and reactive. Nares are patent. Oropharynx and throat exams normal. Neck: Supple without lymphadenopathy nontender Cardiovascular: Regular rate and rhythm, no murmurs. No rubs or gallops. Normal S1 and S2 Respiratory: Clear to auscultation bilaterally. No wheezes, rales, rhonchi Abdominal: Soft and nontender. Normal bowel sounds. No guarding or rebound. Nonsurgical abdomen Extremities: No tenderness. No bruising. Normal range of motion. Normal sensation. Skin: No rash or redness. Neurological: Cranial nerves II through XII are grossly intact. Normal strength and sensation. Normal cerebellar function The rest of the physical exam is unremarkable Const Vital Signs: 01/20/25 13:04 01/20/25 13:16 Temperature 96.3 F L Temperature Source Temporal Pulse Rate 61 Respiratory Rate 18 Respiratory Effort Normal Respiratory Pattern Normal Blood Pressure 125/79 H Blood Pressure Mean 94 Pulse Ox 100 Oxygen Delivery Method Room Air MDM MDM MDM Narrative Medical decision making narrative: Patient is a 64-year-old male presenting to the emergency department for hypoglycemia after giving himself double his insulin. Patient was seen and examined. Vitals are stable. Patient resting in bed comfortably no acute distress. Patient is not altered or confused here. He is alert and oriented x 3. He is able to tolerate p.o. which will be given here. Patient has a reason for his hypoglycemia after taking double his dosage of insulin. Do not think he needs an extensive workup to determine cause given this. Will obtain basic blood work to ensure with the initial hyperglycemia that he is not in any DKA or HHS. CBC with no leukocytosis and chronic anemia of 9.7. Thrombocytopenia of 130. Has been this low previously. Likely from his chronic alcohol use. BMP with glucose of 81 and normal anion gap and bicarb. Urinalysis with 250 glucose, no other significant normalities. Recheck of zbayz-ed-fydm glucose after a full meal was given is now 59. Given the patients reports of double long acting insulin and repeat hypoglycemia after IV and PO replacement, will give additional d10 iv and admit for observation. Patient agreeable with the plan. Admitted to Dr. Alvarado. After patient was admitted and seen by the admitting doctor, he was pacing the hallways and informed me that he would like to leave. Repeat ilupx-uk-jucb glucose in the 160s. I explained that with long acting insulin his level he continued dropping if he has not observed and he could have significant morbidity and mortality from this. I explained to him that he could if his sugars get too low and he is too altered to call for help. Patient understands and accepts these risks. He has capacity to make this decision. He is signed against medical paperwork and left the emergency department. Hospitalist was notified of the patient's decision. Clinical impression Hypoglycemia Chronic anemia Thrombocytopenia History & Record Review Discussion w/independent historian: Patient Lab Data Attestation: I reviewed the patient's lab results. Labs: Laboratory Results - last 24 hr 01/20/25 01/20/25 01/20/25 13:11 13:13 13:48 WBC 10.8 RBC 3.03 L Hgb 9.7 L Hct 31.0 L MCV 102.3 H MCH 32.0 MCHC 31.3 L RDW Std Deviation 51.4 H RDW Coeff of Kalp[place] 13.6 Plt Count 130 L MPV 10.8 Immature Gran % (Auto) 0.600 Neut % (Auto) 80.3 H Lymph % (Auto) 9.7 L [place] % (Auto) 7.1 Eos % (Auto) 1.2 Baso % (Auto) 1.1 H Absolute Neuts (auto) 8.7 H Absolute Lymphs (auto) 1.04 Nucleated RBC % 0 Sodium 136 Potassium 3.8 Chloride 105 Carbon Dioxide 21.7 Anion Gap 9 BUN 15 Creatinine 0.93 Estim Creat Clear Calc 71.17 Est GFR (MDRD) Non-Af 93 BUN/Creatinine Ratio 16.1 Glucose 81 Calcium 8.9 Urine Color Yellow Urine Clarity Clear Urine pH 6.0 Ur Specific [place] 1.010 Urine Protein 15 H Urine Glucose (UA) 250 H Urine Ketones Negative Urine Occult Blood Negative Urine Nitrite Negative Urine Bilirubin Negative Urine Urobilinogen Normal Ur Leukocyte Esterase Negative Urine RBC 0 SEEN Urine WBC 0-5 SEEN Ur Squamous Epith Cells 0-5 SEEN Urine Bacteria 0 SEEN Urine Mucus 0 SEEN POC Glucose 85 01/20/25 13:59 WBC RBC Hgb Hct MCV MCH MCHC RDW Std Deviation RDW Coeff of [place] Plt Count MPV Immature Gran % (Auto) Neut % (Auto) Lymph % (Auto) [place] % (Auto) Eos % (Auto) Baso % (Auto) Absolute Neuts (auto) Absolute Lymphs (auto) Nucleated RBC % Sodium Potassium Chloride Carbon Dioxide Anion Gap BUN Creatinine Estim Creat Clear Calc Est GFR (MDRD) Non-Af BUN/Creatinine Ratio Glucose Calcium Urine Color Urine Clarity Urine pH Ur Specific [place] Urine Protein Urine Glucose (UA) Urine Ketones Urine Occult Blood Urine Nitrite Urine Bilirubin Urine Urobilinogen Ur Leukocyte Esterase Urine RBC Urine WBC Ur Squamous Epith Cells Urine Bacteria Urine Mucus POC Glucose 59 L Discharge Plan Triage Chief Complaint: Hypoglycemia ED Provider: Ashley Dunlap Dx/Rx/DC Orders Primary Care Provider: Sigrid Call [facility]
[2025-01-20 13:32] LABS: Hematocrit 31.0 % (40-54); Hemoglobin 9.7 g/dL (13.0-16.5); Immature Granulocytes Count 0.060 X10^3/uL (0.0-0.0); Mean Corp Hgb Conc 31.3 g/dL (32-36); Mean Corpuscular Volume 102.3 fL (80-94); Mean Platelet Vol. 10.8 fl (6.2-12.0); NRBC Flagged by Analyzer 0 % (0-5); Platelet Count 130 K/mm3 (150-450); RBC Distribution Width CV 13.6 % (11.6-14.6); RBC Distribution Width SD 51.4 fl (35.1-43.9); Red Blood Count 3.03 M/mm3 (4.6-6.2); White Blood Count 10.8 K/mm3 (4.4-11.0)
[2025-01-20 13:48] LABS: Anion Gap 9 (5-15); BUN 15 mg/dL (4-19); BUN/Creat Ratio 16.1 RATIO (10-20); Calcium,Total 8.9 mg/dL (7.6-11.0); Carbon Dioxide 21.7 mmol/L (21.0-32.0); Chloride 105 mmol/L (98-108); Estimated Creatinine Clearance 71.17 ml/min (50-250); Glucose 81 mg/dL (70-99); Potassium 3.8 mmol/L (3.3-5.1)
[2025-01-20 13:54] LABS: Mucous, Urine 0 SEEN /hpf (<or=2+); Red Blood Cells-Urine 0 SEEN /hpf (0-5)
[2025-01-20 13:59] LABS: Color, Urine Yellow (Yellow); Glucose, Dipstick 250 mg/dl (Normal); Ketone-Dipstick Negative (Negative); Leukocyte Esterase-Dipstick Negative /ul (Negative); Nitrite-Dipstick Negative (Negative); Occult Blood-Urine Negative /ul (Negative); Protein-Dipstick 15 mg/dl (Negative); Specific Gravity, Urine 1.010 (1.002-1.030); Urine Bilirubin Dipstick Negative (Negative)
[2025-01-20 14:12] LABS: Squamous Epithelial Cells - UA 0-5 SEEN /hpf (0-5)
--- NOTE | 2025-01-20 14:12 | HP.PCM.HOS_ITS ---
HPI - General General Date of Service: 01/20/25 Chief Complaint: hypoglycemia HPI Narrative ANALILIA TALLEY, is a 64 M with a PMH as outlined who was admitted via the ED on 01/20/2025 with a complaint of low blood sugar. He came to the ED after he doubled his dose of insulin. He said he took long acting insulin of 20 units and short acting 20 units. He later took another long acting dose of lantus 20 units. He said he took the high dose because his blood sugar was high. HE subsequently felt his blood sugar would be low so he asked his daughter to call the EMS. When EMS arrived his blood sugar was in the 40s. He was confused. EMS gave him ~ 170cc of D10 and his blood sugar came up to 245. In the ED blood sugar dropped to the 50s. He denied any lightheadedness, palpitations, nausea, vomiting or any other symptoms. Review of systems is otherwise negative. Vitals in [facility] ED wre BP of 125/79, IN of 61, RR of 18 and temp of 96.3F. He was saturating at 100% on room air. CBC showed hb of 9.7, wbc of 10.8, platelets of 130. Chemistry showed sodium of 136, potassium of 3.8 and bicarb of 21.7. Cr is 0.93. Urinalysis showed no evidence of UTI. He is being admitted to be managed for hypoglycemia due to insulin overdose. [facility] Medical History (Updated 01/20/25 @ 14:[address] Ashley Alvarado MD) Hypoglycemia Chronic pancreatitis Chronic pancreatitis due to chronic alcoholism Malnutrition Pancytopenia Medically noncompliant Thrombocytopenia Macrocytosis associated with alcohol Ascites due to alcoholic cirrhosis Chronic diarrhea Chronic alcohol abuse Abdominal ascites MALIK (acute kidney injury) Seizures Alcoholic hepatitis Chronic pancreatitis Gastric wall thickening Alcohol dependence Anxiety Diabetes Pancreatitis Myocardial infarct Pacemaker AAA (abdominal aortic aneurysm) Admitted to alcohol detoxification center Alcohol abuse Hx of hypercholesterolemia History of diabetes mellitus Alcohol dependence Substance abuse Smoker Alcoholism Right bundle branch block (RBBB) Non-sustained ventricular tachycardia Thoracic aortic aneurysm SVT (supraventricular tachycardia) Ascending aortic dissection (~2005) Pure hypercholesterolemia Adrenal nodule Hiatal hernia Left carotid bruit Cardiac pacemaker in situ (~06/2016) Essential hypertension Pacemaker Sick sinus syndrome Tobacco use HTN (hypertension) Diabetes mellitus, type II Home Medications ?Medication ?Instructions ?Recorded ?Last Taken ?Type multivitamin 1 tab PO DAILY SUPPLEMENT 07/31/24 History gabapentin 300 mg capsule 300 mg PO DAILY NEUROPATHY 1 07/31/24 History folic acid 1 mg tablet 1 mg PO DAILY@0800 supplemen t #0 05/20/23 07/31/24 Rx tabs thiamine HCl (vitamin B1) 100 mg 100 mg PO DAILYCM vit padilla #0 tabs 05/20/23 07/31/24 Rx tablet (Vitamin B-1) pantoprazole 40 mg tablet,delayed 40 mg PO BID reflux #60 tabs 06/27/23 07/31/24 Rx release ferrous sulfate 325 mg (65 mg 325 mg PO DAILY suppleme nt 06/30/24 07/31/24 History iron) tablet (FeroSul) L.acidophil,salivari-Bifido 1 cap PO BID Probiotic 07/31/24 History bifidum-Strep thermoph 175 mg capsule wmipyu-vvlpzois-oitogy(pork)24,000-76,000-120,000 1 ca p PO BIDCM 08/29/24 Unknown History unit capsule,del rel (Creon) OXYGEN - Supplemental ([facility] 10/17/24 Unknown History INFORMATIONAL USE ONLY) pen needle, diabetic 31 gauge x #100 ea 12/11/24 Unkno wn Rx insulin glargine-yfgn 100 unit/mL 20 unit (0.2 mL) sub cut DAILY #15 12/19/24 Unknown Rx (3 mL) subcutaneous pen mL metformin 500 mg tablet,extended 500 mg PO DAILY DIABE COLLETTE #30 tabs 12/19/24 Unknown Rx release 24 hr aspirin 81 mg tablet,delayed 81 mg PO QDAY 12/28/24 Un known History release (Adult Low Dose Aspirin) atorvastatin 10 mg tablet 10 mg PO DAILY CHOLESTEROL # 90 tabs 12/28/24 Unknown Rx dapagliflozin propanediol 10 mg 10 mg PO DAILY DIABETE S #30 tabs 12/28/24 Unknown Rx tablet (Farxiga) furosemide 20 mg tablet 40 mg (2 x 20 mg) PO DAILY # 180 12/28/24 Unknown Rx tabs metoprolol succinate 25 mg 25 mg PO DAILY blood pressu re #90 12/28/24 Unknown Rx tablet,extended release 24 hr tabs sacubitril 24 mg-valsartan 26 mg 1 tab PO BID #60 tabs 12/28/24 Unknown Rx tablet (Entresto) spironolactone 25 mg tablet 25 mg PO DAILY diuretic #9 0 tabs 12/28/24 Unknown Rx Allergy/AdvReac Type Severity Reaction Status Date / Time No Known Allergies Allergy Verified 01/20/25 13:09 Family History Father CAD (coronary artery disease) Mother Dementia Surgical History History of aortic aneurysm repair (~2016) H/O cardiac catheterization History of cataract surgery History of hernia repair History of aortic valve replacement with bioprosthetic valve (~2016) H/O aortic valve replacement Social History household members: family housing: house Smoking Status: Light Smoker (<10/day) alcohol intake: current alcohol intake frequency: 0-2 drinks per day details: Reports currently ~ 2 tall boys daily. substance use type: former substance user caffeine: Yes Type: coffee Number of servings: 3 ROS Constitutional Constitutional: Denies anorexia, chills, fatigue, fever(s), malaise or weakness Eyes Eyes: Denies change in vision ENT HEENT: Denies dysphagia, headache(s) or sore throat Cardiovascular Cardiovascular: Denies chest pain, dyspnea on exertion, edema, lightheadedness, orthopnea, palpitations, paroxysmal nocturnal dyspnea, rapid heart rate or syncope Respiratory/Chest Respiratory/Chest: Denies cough, dyspnea, shortness of breath at rest or shortness of breath with exertion Gastrointestinal Gastrointestinal: Denies abdominal pain, constipation, diarrhea, nausea or vomiting Genitourinary Genitourinary: Denies dysuria Neurologic Neurologic: Reports confusion; Denies dizziness, focal weakness, headache(s), numbness, seizures, syncope or tingling Psychiatric Psychiatric: Denies anxiety or depression Vital Signs Vital Signs Vital Signs: 01/20/25 13:04 01/20/25 13:16 Temperature 96.3 F L Temperature Source Temporal Pulse Rate 61 Respiratory Rate 18 Respiratory Effort Normal Respiratory Pattern Normal Blood Pressure 125/79 H Blood Pressure Mean 94 Pulse Ox 100 Oxygen Delivery Method Room Air Weight Weight: 134 lb 11.239 oz Body Mass Index (BMI) 19.3 Physical Exam Const alert, oriented x3 and no apparent distress General Appearance: cooperative HEENT normocephalic, head/scalp atraumatic, hearing grossly normal bilaterally, moist oral mucous membranes and oropharynx normal Mouth: oral and palatal mucosa normal Eyes EOMs intact bilaterally and conjunctivae normal Neck supple and no JVD Resp normal respiratory effort, no use of accessory muscles and clear to auscultation bilaterally Cardio regular rate, regular rhythm, S1 normal heart sound, S2 normal heart sound and no murmurs GI normal to inspection, nondistended, normoactive bowel sounds, soft to palpation, non-tender and non-distended Extremity normal to inspection, full ROM and no clubbing, cyanosis or edema Neuro oriented x3, moves all extremities and no focal motor deficits Sensorium / Orientation: awake and alert Motor Exam: strength 5/5 throughout Psych affect normal Results Lab / Micro Data 01/20/25 13:13 01/20/25 13:13 Labs: Laboratory Results - last 24 hr 01/20/25 13:11: POC Glucose 85 01/20/25 13:13: WBC 10.8, RBC 3.03 L, Hgb 9.7 L, Hct 31.0 L, MCV 102.3 H, MCH 32.0, MCHC 31.3 L, RDW Std Deviation 51.4 H, RDW Coeff of Kalpana 13.6, Plt Count 130 L, MPV 10.8, Immature Gran % (Auto) 0.600, Neut % (Auto) 80.3 H, Lymph % (Auto) 9.7 L, [place] % (Auto) 7.1, Eos % (Auto) 1.2, Baso % (Auto) 1.1 H, Absolute Neuts (auto) 8.7 H, Absolute Lymphs (auto) 1.04, Nucleated RBC % 0, Sodium 136, Potassium 3.8, Chloride 105, Carbon Dioxide 21.7, Anion Gap 9, BUN 15, Creatinine 0.93, Estim Creat Clear Calc 71.17, Est GFR (MDRD) Non-Af 93, BUN/Creatinine Ratio 16.1, Glucose 81, Calcium 8.9 01/20/25 13:48: Urine Color Yellow, Urine Clarity Clear, Urine pH 6.0, Ur Specific [place] 1.010, Urine Protein 15 H, Urine Glucose (UA) 250 H, Urine Ketones Negative, Urine Occult Blood Negative, Urine Nitrite Negative, Urine Bilirubin Negative, Urine Urobilinogen Normal, Ur Leukocyte Esterase Negative, Urine RBC 0 SEEN, Urine WBC 0-5 SEEN, Ur Squamous Epith Cells 0-5 SEEN, Urine Bacteria 0 SEEN, Urine Mucus 0 SEEN Assessment & Plan Assessment/Plan (1) History of diabetes mellitus: (2) Hypoglycemia: PLAN: Plan #Hypoglycemia due to insulin overdose * patient took a double dose of his insulin glargine 20 units and then also took short acting insulin 20 units * blood sugar was down in the 40s and he received D10 * blood sugar in the 50s in the ED even after receiving D10 * admit to Med surg * hold home insulin * place on D10 infusion. * monitor blood sugar q1 hrly * check A1C * hold metformin and dapagliflozin * #Heart failure with reduced EF * on entresto and spironolactone as well as lasix * #History of chronic pancreatitis in the setting of alcohol use disorder * on Creon * #Histoyr of sick sinus syndrome: has pacemaker in situ. #History of GERD: on PPI #History of abdominal aortic aneurysm: stable. Follow up with vascular surgery on outpatient basis #Nicotine dependence: counseled to quit. Nicotine patch prn DVT prophylaxis: lovenox Disposition: I was informed by the ED at 3:32pn via backline that patient had decided to sign out AGAINST MEDICAL ADVICE. He had been counseled by the ED doctor about importance of staying but he had insisted on signing out AMA and had done so.He therefore signed out AGAINST MEDICAL ADVICE even before he was admitted to the floor. Charges/Coding Multi Select Codes Visit Charges Office Visit/Consults: 82916 IP Consult L2
--- OUTSIDE RECORDS SUMMARY | 2025-01-20 14:13 | XMS RPT_ITS | CCD ---
Author Organization [facility] Care Team Providers Care Remote Pilot Operator Name Role Phone BANDAR DAIGLE Unavailable Unavailable BANDAR DAIGLE Unavailable Unavailable NO, DOCTOR ON Unavailable Unavailable [...] Unavailable Andreas Pathak Primary Care Provider ZO ALTERATION HAND - ANDREAS BROWN Primary Care Phys ician Zo TRACTOR CRANE OPERATOR, TRACTOR CRANE OPERATOR-C Andreas Thorne Primary Care Pr ovider Dr. Samantha Singer Emergency Provider Dr. Ashley Alvarado Admit Provider Dr. Arielle Crowe Other Provider Dr. Sonali Smyth Attending Provider Dr. Arielle Crowe Attending Provider Zo TRACTOR CRANE OPERATOR, TRACTOR CRANE OPERATOR-C Andreas Thorne Primary Care Pr ovider Dr. Trung Bob Attending Provider Dr. Ashley Alvarado Referring Provider Dr. Chris Call Emergency Provider Dr. Lucas Frausto Admit Provider Dr. Lucas Frausto Attending Provider Dr. Lucas Frausto Other Provider Dr. Refugio Rojas Attending Provider Dr. Refugio Rojas Other Provider Comal TRACTOR CRANE OPERATOR, TRACTOR CRANE OPERATOR-C Andreas Thorne Primary Care Pr ovider Zo TRACTOR CRANE OPERATOR, TRACTOR CRANE OPERATOR-C Andreas Thorne Referring Provi mary lou Yun West Attending Provider Unavailable Zo TRACTOR CRANE OPERATOR, TRACTOR CRANE OPERATOR-C Andreas Thorne Primary Care Pr ovider Dr. Jacky Bey Attending Provider [phone] Jacky Bey Referring Provider [phone] Samantha Singer Emergency Provider Dr. Valeriy Connell Admit Provider Dr. Valeriy Connell Attending Provider Dr. Valeriy Connell Other Provider Zo TRACTOR CRANE OPERATOR, TRACTOR CRANE OPERATOR-C Andreas Thorne Primary Care Pr ovider Dr. [...] Unavailable Dr. Vinh Lomeli Emergency Provider Zo TRACTOR CRANE OPERATOR, TRACTOR CRANE OPERATOR-C Andreas Thorne Primary Care Pr ovider Dr. Iman Aguayo Admit Provider Dr. Iman Aguayo Other Provider Dr. Conrado Morel Attending Provider Unavailable Dr. Conrado Morel Other Provider Unavailable Dr. Mateusz Dutton Attending Provider Dr. Mateusz Dutton Other Provider Koram, Dr. Ashley Washington Admit Provider Koram, Dr. Ashley Washington Other Provider Dr. Iman Aguayo Attending Provider [phone] Tarik Rounding Nurse, Geremias Unavailable Unavai lable ZO ALTERATION HAND - HIGH SCHO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, ANDREAS Rod Primary Care U navailable ZO ALTERATION HAND - HIGH SCHO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, ANDREAS Rod Attending U navailable ZO ALTERATION HAND - HIGH SCHO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, ANDREAS Rod Primary Care U navailable ZO ALTERATION HAND - HIGH SCHO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, ANDREAS Rod Attending U navailable ZO ALTERATION HAND - HIGH SCHO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, ANDREAS Rod Attending U navailable ZO ALTERATION HAND - HIGH SCHO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, ANDREAS Rod Primary Care U navailable ZO ALTERATION HAND - HIGH SCHO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, ANDREAS Rod Attending U navailable ZO ALTERATION HAND - HIGH SCHO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, ANDREAS Rod Primary Care U navailable ZO ALTERATION HAND - HIGH SCHO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, ANDREAS Rod Primary Care U navailsuha GROSS MD, DR MENDEZ Attending Unavailable BERNARD FRANCISCO, DR MARIELY Love Admitting Kevin WAGNER MD, DR MARIELY Love Consulting Unavai lable ZO ALTERATION HAND - HIGH SCHO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, ANDREAS Rod Primary Care U navailable FRANDY FRANCISCO, DR DUNBAR Attending Unavailable ZO ALTERATION HAND - HIGH SCHO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, ANDREAS Rod Primary Care U natalia GROSS MD, DR MENDEZ Attending Unavailable ZO ALTERATION HAND - HIGH SCHO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, ANDREAS Rod Primary Care U navailable ZO ALTERATION HAND - HIGH SCHO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, ANDREAS Rod Attending U navailable ZO ALTERATION HAND - HIGH SCHO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, ANDREAS Rod Attending U navailable ZO ALTERATION HAND - HIGH SCHO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, ANDREAS Rod Primary Care U navailable ZO ALTERATION HAND - HIGH SCHO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, ANDREAS Rod Primary Care U navailable ZO ALTERATION HAND - HIGH SCHO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, ANDREAS Rod Attending U navailable ZO ALTERATION HAND - HIGH SCHO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, ANDREAS Rod Attending U navailable ZO ALTERATION HAND - HIGH SCHO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, ANDREAS Rod Primary Care U navailable ZO ALTERATION HAND - HIGH SCHO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, ANDRAES Rod Primary Care U navailable FROMMELT DO, MAGDALENA Attending Unavailable RIDER DO, DR MERRICK Alvarez Attending Unavailable ZO ALTERATION HAND - HIGH SCHO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, ANDREAS Rod Primary Care U navailable Comal TRACTOR CRANE OPERATOR, TRACTOR CRANE OPERATOR-C Andreas Thorne Primary Care Pr ovider Dr. Trung Bob Attending Provider Le, Dr. Perez Emergency Provider Dr. Lucas Frausto Admit Provider Jett, Dr. Lucas Fan Attending Provider Dr. Lucas Frausto Other Provider Christiano, Dr. Ashley Washington Attending Provider Korjessica, Dr. Ashley Washington Other Provider Zo TRACTOR CRANE OPERATOR, TRACTOR CRANE OPERATOR-C Andreas Thorne Primary Care Pr ovider Dr. Trung Bob Attending Provider Le, Dr. Perez Emergency Provider Dr. Lucas Frausto Admit Provider Dr. Lucas Frausto Attending Provider Dr. Lucas Frausto Other Provider Christiano, Dr. Ashley Washington Attending Provider Christiano, Dr. Ashley Washington Other Provider Dr. Carlos Augustin Emergency Provider Dr. Conrado Pro Admit Provider Unavailabl e Pro, Dr. Camp Other Provider Unavailnelson e Dr. Conrado Morel Attending Provider Unavailable Adriel, Dr. Camp Other Provider Unavailable Dr. Trenton Strong Other Provider [phone] Dr. Alcides Tucker Other Provider Dr. Aramis Palacios Other Provider Dr. Barry Sheehan Other Provider Dr. Aldo Castellano Other Provider Dr. [place] Other Provider Dr. Chen Merrill Other Provider Dr. Mundo Marcelino Other Provider Dr. Meli Miles Other Provider Dr. Tiara Horowitz Other Provider Unavailable Dr. Yunier Allred Other Provider Dr. Jose Pacheco Other Provider Dr. Marquez Elmore Other Provider Dr. Bronson Peterson Other Provider Dr. Toni Dodge Other Provider Dr. Conrado Morel Referring Provider Unavailable Dr. Barry Sheehan Attending Provider Dr. Iman Aguayo Attending Provider Dr. Maya Melo Other Provider [phone] Dr. Refugio Rojas Attending Provider Dr. Refugio Rojas Other Provider Trung Bob MD S Unavailable Queden 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, Marianna A Primary Care Provider QUEDEN TRACTOR CRANE OPERATOR-C, MARIANNA Primary Care Physician [phone] QUEDEN TRACTOR CRANE OPERATOR-C, MARIANNA Primary Care Unavailable ANN-MARIE DILLON DO Attending Unavailable QUEDEN, MARIANNA A Referring Unavailable QUEDEN, MARIANNA A Primary Care Unavailable QUEDEN, MARIANNA A Primary Care Unavailable LUCAS DELAROSA Attending Unavailable PROVIDER, UNKNOWN Referring Unavailable Care Physician, No Primary Primary Care Provider Unavailable Paulino FRANCISCO, Dr. Nino Attending Provider Nick RILEY, Dr. Gongora Referring Provider Nick RILEY, Dr. Gongora Emergency Provider Queden TRACTOR CRANE OPERATOR-C, [facility] Care Provider de Evelio DO, Dr. Camp Admit Provider Unavail able de Evelio DO, Dr. Camp Attending Provider Unav ailable de Evelio DO, Dr. Camp Other Provider Unavail able Rj RILEY, Dr. Wilhelm Attending Provider [phone] Rj RILEY, Dr. Wilhelm Other Provider Nupur RILEY, Dr. Hardy Attending Provider Care Physician, No Primary Primary Care Provider Unavailable Paulino FRANCISCO, Dr. Nino Attending Provider Nick RILEY, Dr. Gongora Referring Provider Danynorthern navajo medical centerKai RI[facility], Dr. Gongora Emergency Provider Queden TRACTOR CRANE OPERATOR-C, [facility] Care Provider [phone] de Evelio DO, Dr. Camp Admit Provider Unavail able de Evelio DO, Dr. Camp Other Provider Unavail able Rj RILEY, Dr. Wilhelm Attending Provider Dr. Melonie De La Rosa DO Other Provider Dr. Antony Espitia DO Attending Provider [place] RanchosDr. Narendra manrique DO Emergency Provider de Evelio DO, Dr. Camp Attending Provider Unav ailable de Evelio DO, Dr. Camp Referring Provider Unav ailable Margo RILEY, Dr. Perez Attending Provider Tona FRANCISCO, Dr. Groves Other Provider [phone] Margo RILEY, Dr. Perez Other Provider Dr. Yaneli Carbone MD Attending Provider [phone] Matias RN, Radha Unavailable Quintin RILEY Dr. Perez Emergency Provider Rj RILEY, Dr. Wilhelm Admit Provider Estee FRANCISCO, Dr. Mcfarlaen Other Provider Dr. Conrado Morel MD Attending Provider Unavaila lita Call DO, Sigrid Primary Care Provider Adriel FRANCISCO, Dr. Camp Other Provider Unavailable Reji SMITH, Dian Attending Provider Matias RN, Radha Unavailable Jakub DO, Josseline Salinas Primary Care Provider QUEDEN, MARIANNA A Primary [...] Olivier FRANCISCO, Dr. Iman Callahan Admit Provider Dr. Iman Aguayo MD Attending Provider Dr. Iman Aguayo MD Other Provider Dr. Valeriy Connell DO Attending Provider Dr. Valeriy Ross MD Other Provider Dr. Valeriy Connell DO Other Provider Suyapa Bal Attending Provider Dr. Iman Aguayo MD Attending Provider Dr. Trung Bob MD Attending Provider Dr. Valeriy Connell DO Referring Provider Dr. Vinh Lomeli MD Emergency Provider Julito FRANCISCO, Dr. Rico Attending Provider Julito FRANCISCO, Dr. Rico Admit Provider Julito FRANCISCO, Dr. Rico Admit Provider Julito FRANCISCO, Dr. Rico Other Provider Jett FRANCISCO, Dr. Lucas Fan Attending Provider Ligia FRANCISCO, Dr. Kaye Other Provider Caitlin FRANCISCO, Dr. Mcgrath Other Provider Philip FRANCISCO, Dr. Self Other Provider Aguila RILEY, Dr. Reddy Other Provider Claudio FRANCISCO, Dr. Conrado Armenta Other Provider Gray FRANCISCO, Dr. Carlson Other Provider [phone] Urmila FRANCISCO, Dr. Amor Other Provider Garfield FRANCISCO, Dr. Siddiqui Other Provider Chari FRANCISCO, Dr. Flower Other Provider Julius FRANCISCO, Dr. Bowers Other Provider [phone] Dr. Suleman Denis MD Other Provider [phone] Jd FRANCISCO, Dr. Garrison Other Provider Carlos Manuel FRANCISCO, Dr. Menjivar Other Provider Unavailnorthwest [facility] giancarlo Fontenot MD, Dr. Bearden Other Provider Brigida FRANCISCO, Dr. Faye Other Provider Junior FRANCISCO, Dr. Garcia Other Provider Ramírez FRANCISCO, Dr. Zayas Other Provider Dr. Wilbert Lozano DO Other Provider Kendra FRANCISCO, Dr. Gary Other Provider [phone] Dr. Vladimir Matson MD Other Provider [phone] Dwight Vora DO Other Provider Nicholas FRANCISCO, Dr. Dobson Other Provider Dar FRANCISCO, Dr. Muñoz Other Provider Jett FRANCISCO, Dr. Lucas Fan Other Provider Aliya TRACTOR CRANE OPERATOR-CBernadette Attending Provider Jett FRANCISCO, Dr. Lucas Fan Referring Provider Aguila RILEY, Dr. Reddy Attending Provider Jakub RILEY, Sigrid Referring Provider ePggy Song Attending Provider Dr. Valeriy Flores DO Emergency Provider Dr. Valeriy Flores DO Attending Provider [phone] Edi TRACTOR CRANE OPERATOR-C, Heather Attending Provider Case FRANCISCO, Dr. Ortiz Admit Provider Case FRANCISCO, Dr. Ortiz Attending Provider VANDANA EDWARDS Attending Unavailable QUEDEN, MARIANNA A Primary Care Unavailable QUEDEN, MARIANNA A Primary Care Unavailable PIPER PEARSON Referring Unavail able JAKUB JOSSELINE FAWAD Primary Care UnavailGALINDO Obrien Admitting Unavailable YANICK RITCHIE Attending Unavailable SUSANA RAMIREZ Attending Unavailable QUEDEN, MARIANNA A Referring Unavailable QUEDEN, MARIANNA A Primary Care Unavailable RAMY DELGADILLO Referring Unavailable QUEDEN, MARIANNA A Primary Care Unavailable Jakub VSC, Sigrid Primary Care Unavailable Iman Aguayo Consulting Unavailable Iman Aguayo L Attending Unavailable Iman Aguayo Admitting Unavailable Lucas Frausto Attending Unavailable Jakub VSC, Sigrid Primary Care Unavailable Jacky Vila Consulting Unavailable Jacky Vila Admitting Unavailable Trenton Strong Consulting Unavailable Alcides Tucekr Consulting Unavailable Aramis Palacios Consulting Unavailable Barry Sheehan Consulting Unavailable Conrado Snyder Consulting Unavailable Aldo Castellano Consulting Unavailable [place] Consulting Unavailable Chen Merrill Consulting Unavailab le Abrahand, Mundo Consulting Unavailable Robinson Madrid Consulting Unavailable Suleman Denis Consulting Unavailable Jd, Meli Consulting Unavailable Tiara Horowitz Consulting Unavailable Monisha Fontenot Consulting Unavailable Yunier Allred Consulting Unavailable Jose Pacheco Consulting Unavailable Marquez Elmore Consulting Unavailable Wilbert Lozano Consulting Unavailable Abdirahman Gardner Consulting Unavailable Vladimir Matson Consulting Unavailable Dwight Vora Consulting Unavailable Bronson Peterson Consulting Unavailable Toni Dodge Consulting Unavailable Conrado Pro Consulting Unavailable Conrado Pro Admitting Unavailable Conrado Pro Referring Unavailable Antony Espitia Attending Unavailable Queden TRACTOR CRANE OPERATOR, [facility] Primary Care Unavailable Melonie De La Rosa Consulting Unavailable Yaneli Carbone Consulting Unavailable Chris Aragon Consulting Unavailable Yaneli Carbone Attending Unavailable Queden TRACTOR CRANE OPERATOR, [facility] Primary Care Unavailable [facility], [facility] Primary Care Unavailable Melonie De La Rosa Referring Unavailable Melonie De La Rosa Attending Unavailable Yaneli Carbone Attending Unavailable [facility], [facility] Primary Care Unavailable Mark Ricketts Attending Unavailable Melonie De La Rosa Admitting Unavailable Piper Fontanez Consulting Unavailable Queden TRACTOR CRANE OPERATOR, [facility] Primary Care Unavailable Dian Rios Attending Unavailable Conrado Morel Referring Unavailable Melonie De La Rosa Consulting Unavailable Conrado Morel Consulting Unavailable Conrado Morel Attending Unavailable Conrado Pro Consulting Unavailable Conrado Pro Attending Unavailable Conrado Pro Admitting Unavailable Conrado Pro Referring Unavailable Quedevyn TRACTOR CRANE OPERATOR, [facility] Primary Care Unavailable Chris Aragon Attending Unavailable Care Physician, No Primary Primary Care Unava ilable Trung Bob Attending Unavailable Lucas Frausto Attending Unavailable [facility], [facility] Primary Care Unavailable Jacky Vila Consulting Unavailable Jacky Vila Admitting Unavailable Trenton Strong Consulting Unavailable Alcides Tucker Consulting Unavailable Aramis Palacios Consulting Unavailable Barry Sheehan Consulting Unavailable Conrado Snyder Consulting Unavailable Aldo Castellano Consulting Unavailable [place] Consulting Unavailable Chen Merrill Consulting Unavailab ovidio Marcelino, Mundo Consulting Unavailable Robinson Madrid Consulting Unavailable Denis, Suleman Consulting Unavailable Jd, Meli Consulting Unavailable Aljundi, Lamia Consulting Unavailable Fontenot, Monisha Consulting Unavailable Brigida, Yunier Consulting Unavailable Irukulla, Jose Consulting Unavailable Ramírez, Marquez Consulting Unavailable Dhesi, Wilbert Consulting Unavailable Abdirahman Gardner Consulting Unavailable Abilene, Soleyah Consulting Unavailable Fernstrom, Dwight Consulting Unavailable Nicholas, Bronson Consulting Unavailable Toni Dodge Consulting Unavailable Lucas Frausto Consulting Unavailable Barry Sheehan Attending Unavailable Lucas Frausto Referring Unavailable Antony Espitia Attending Unavailable [facility] Unavailable Peggy Lima Attending Unavailable Peggy Lima Referring Unavailable Valeriy Connell Attending Unavailable [facility] Unavailable Diana Willoughby Admitting Unavailable Diana Willoughby Consulting Unavailable Christiano, Ashley Padmini Consulting Unavailable Sonali Smyth Consulting UnavailTrenton Vences Consulting Unavailable Alcides Tucker Consulting Unavailable Aramis Palacios Consulting Unavailable Barry Sheehan Consulting Unavailable Conrado Snyder Consulting Unavailable Aldo Castellano Consulting Unavailable [place] Consulting Unavailable Chen Merrill Consulting UnavailMundo De La Garza Consulting Unavailable Robinson Madrid Consulting Unavailable Suleman Denis Consulting Unavailable Jd, Meli Consulting Unavailable Aljundi, Lamia Consulting Unavailable Fontenot, Monisha Consulting Unavailable Brigida, Yunier Consulting Unavailable Irukulla, Jose Consulting Unavailable Ramírez, Marquez Consulting Unavailable Dhesi, Wilbert Consulting Unavailable Abdirahman Gardner Consulting Unavailable [place], Soleyah Consulting Unavailable Fernstrom, Dwight Consulting Unavailable Nicholas, Bronson Consulting Unavailable Patty Hendricks Consulting UnavailToni Luz Consulting Unavailable Conrado Pro Consulting Unavailable Conrado Pro Admitting Unavailable Conrado Pro Attending Unavailable Rolan Romero Referring Unavailnelson Wagner TRACTOR CRANE OPERATOR, Marianna Primary Care Unavailable Melonie De La Rosa Attending Unavailable Ashley Alvarado Attending Unavailable [facility] Unavailable Diana Willoughby Consulting Unavailable Diana Willoughby Admitting Unavailable Marijaam, Ashley Padmini Consulting Unavailable Trenton Strong Consulting Unavailable Alcides Tucker Consulting Unavailable Aramis Palacios Consulting Unavailable Barry Sheehan Consulting Unavailable Conrado Snyder Consulting Unavailable Aldo Castellano Consulting Unavailable [place] Consulting Unavailable Chen Merrill Consulting UnavailMundo De La Garza Consulting Unavailable Robinson Madrid Consulting Unavailable Suleman Denis Consulting Unavailable Meli Miles Consulting Unavailable Tiara Horowitz Consulting Unavailable Monisha Fontenot Consulting Unavailable Yunier Allred Consulting Unavailable Jose Pacheco Consulting Unavailable Marquez Elmore Consulting Unavailable DheLisha tomlinsonWilbert Consulting Unavailable Abdirahman Gardner Consulting Unavailable Vladimir Matson Consulting Unavailable Dwight Vora Consulting Unavailable Bronson Peterson Consulting Unavailable Patty Hendricks Consulting UnavailToni Luz Consulting Unavailable [facility], [facility] Primary Care Unavailable [facility], [facility] Referring Unavailable Peggy Lima Attending Unavailable Valeriy Connell Referring Unavailable Suyapa Bustos Attending Unavailable Valeriy Ross Consulting Unavailable Becki Valeriy Consulting Unavailable [facility], [facility] Primary Care Unavailable Jacky Vila Attending Unavailable Bernadette Pisano Attending Unavailable Trung Bob Attending Unavailable Care Physician, No Primary Primary Care Unava ilable [facility] Primary Care Unavailable Trung Bob Attending Unavailable Piper Pearson Attending Unavailable Sonali Smyth Consulting UnavailValeriy Cooley Consulting Unavailable [facility], [facility] Primary Care Unavailable Perez Riberio Attending Unavailable Dinaa Willoughby Attending Unavailable Bernadette Pisano Attending Unavailable Sonali Smyth Attending UnavailValeriy Cooley Attending Unavailable Melonie De La Rosa Admitting Unavailable [facility], [facility] Primary Care Unavailable Piper Fontanez Consulting Unavailable Conrado Morel Attending Unavailable Melonie De La Rosa Consulting Unavailable Conrado Pro Admitting Unavailable Conrado Pro Referring Unavailable Conrado Pro Consulting Unavailable Fátima DAVIS, Marianna Primary Care Unavailable Chris Aragon Attending Unavailable Melonie De La Rosa Consulting Unavailable Yaneli Carbone Consulting Unavailable Conrado Pro Consulting Unavailable Conrado Pro Admitting Unavailable Rolan Romero Referring Unavailnelson e Fátima TRACTOR CRANE OPERATOR, Marianna Primary Care Unavailable Melonie De La Rosa Attending Unavailable Fátima TRACTOR CRANE OPERATOR, Marianna Primary Care Unavailable Melonie De La Rosa Attending Unavailable Jakub VSC, Sigrid Primary Care Unavailable Valeriy Connell Attending Unavailable Antony Espitia Attending Unavailable Melonie De La Rosa Consulting Unavailable Melonie De La Rosa Attending Unavailable Jakub VSC, Sigrid Referring Unavailable Jakub VSC, Sigrid Primary Care Unavailable Peggy Lima Attending Unavailable Jakub VSC, Sigrid Referring Unavailable Jakub VSC, Sigrid Primary Care Unavailable Edi DAVIS, Heather Attending Unavailable Jakub VSC, Sigrid Primary Care Unavailable Bob, Refugio Admitting Unavailable Bob, Refugio Attending Unavailable Bob, Refugio Consulting Unavailable Jakub VSC, Sigrid Primary Care Unavailable Valeriy Flores Attending Unavailable Conrado Morel Attending Unavailable Conrado Morel Consulting Unavailable Jakub VSC, Sigrid Primary Care Unavailable Bob, Refugio Admitting Unavailable Bob, Refugio Consulting Unavailable Conrado Morel Attending Unavailable Valeriy Connell Attending Unavailable Jakub VSC, Sigrid Primary Care Unavailable Iman Aguayo Admitting Unavailable Iman Aguayo Consulting Unavailable Valeriy Ross Unavailable Medications Current Medications Medication Drug Class(es) Dates Sig (Normalized) Sig (Original) Blood Glucose Test Machine (11 sources) Start: 05-02-2021 Blood Glucose Test Machine See Instructions, Use as directed Brand type per insurance or patient preference, # 1 EA, 0 Refill(s), Pharmacy: [id number], 176.5, cm, 05/02/21 11:34:00 EDT, Height, 73.2, kg, 05/02/21 13:04:00 EDT, Dosing Weight Start Date: 05/02/21 Status: Ordered Quantity: 1.0 Unit: EA Repeat number: 1 Start: 05-02-2021 Blood Glucose Test Machine See Instructions, Use as directed Brand type per insurance or patient preference, # 1 EA, 0 Refill(s), Pharmacy: [id number], 176.5, cm, 05/02/21 11:34:00 EDT, Height, 73.2, kg, 05/02/21 13:04:00 EDT, Dosing Weight Start Date: 05/02/21 Status: Ordered Blood-Glucose Meter,Continuo us (FREESTYLE MANGO 3 READER[place] [facility] [place] Start: 08-29-2023 Blood-Glucose Meter,Continuous (FREESTYLE MANGO 3 READER) [facility] Indications: Type 2 diabetes mellitus with complication, with long-term current use of insulin (HCC) Use to check blood sugar at least four (4) times daily. 1 Each 08/29/2023 Suspended Start: 08-29-2023 Blood-Glucose Meter,Continuous (FREESTYLE MANGO 3 READER) [facility] [place]ications: Type 2 diabetes mellitus with complication, with long-term current use of insulin (HCC) Use to check blood sugar at least four (4) times daily. 1 Each 08/29/2023 Active Start: 08-29-2023 Blood-Glucose Meter,Continuous (FREESTYLE MANGO 3 READER) [facility] [place]ications: Type 2 diabetes mellitus with complication, [...] to upper arm. 6 Each 4 12/27/2023 Suspended Start: 12-27-2023 Blood-Glucose Sensor (FREESTYLE MANGO 3 [...] days. 14 capsule 0 08/13/2023 08/20/2023 Active DME [facility] (20 sources) Start: 04-28-2023 DME [facility] See Instructions, Libre2 sensors. Use to check blood sugar, replace every 14 days. Dispense #2 sensors, # 2 EA, 3 Refill(s), Pharmacy: [facility], 176, cm, 03/29/23 13:58:00 EST, Height, 67.6, kg, 03/29/23 13:58:00 EST, Dosing Weight Start Date: 04/28/23 Status: Ordered Quantity: 2.0 Unit: EA Repeat number: 4 Start: 04-28-2023 DME [facility] ous See Instructions, Libre2 sensors. Use to check blood sugar, replace every 14 days. Dispense #2 sensors, # 2 EA, 3 Refill(s), Pharmacy: [facility], 176, cm, 03/29/23 13:58:00 EST, Height, 67.6, kg, 03/29/23 13:58:00 EST, Dosing Weight Start Date: 04/28/23 Status: Ordered Start: 01-11-2023 DME [facility] ous See Instructions, Patient needs a refill on Freestyle Mango 2 sensors., # 2 EA, 3 Refill(s), Pharmacy: [facility], 180, cm, 10/15/22 11:38:00 EDT, Height, 66.8, kg, 10/15/22 11:38:00 EDT, Dosing Weight Start Date: 01/11/23 Status: Ordered Quantity: 2.0 Unit: EA Repeat number: 4 Start: 01-11-2023 DME [facility] ous See Instructions, Patient needs a refill on Freestyle Mango 2 sensors., # 2 EA, 3 Refill(s), Pharmacy: [facility], 180, cm, 10/15/22 11:38:00 EDT, Height, 66.8, kg, 10/15/22 11:38:00 EDT, Dosing Weight Start Date: 01/11/23 Status: Ordered Start: 11-17-2022 DME MISCellane ous See Instructions, Pen needles. Use with Lantus insulin pen for daily injection. dispense #1 box + 11 refills., # 100 EA, 11 Refill(s), Pharmacy: [facility], 180, cm, 10/15/22 11:38:00 EDT, Height, 66.8, kg, 10/15/22 11:38:00 EDT, Dosing Weight Start Date: 11/17/22 Status: Ordered Quantity: 100.0 Unit: EA Repeat number: 12 Start: 11-17-2022 DME MISCellane ous See Instructions, Pen needles. Use with Lantus insulin pen for daily injection. dispense #1 box + 11 refills., # 100 EA, 11 Refill(s), Pharmacy: [facility], 180, cm, 10/15/22 11:38:00 EDT, Height, 66.8, kg, 10/15/22 11:38:00 EDT, Dosing Weight Start Date: 11/17/22 Status: Ordered Start: 09-29-2022 DME MISCellane ous See Instructions, Patient needs a refill on Freestyle Mango 2 sensors., # 2 EA, 3 Refill(s), Pharmacy: [facility], 176, cm,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 Episodic Residual codes; unclassified (1 source) Other specified postprocedural states; Translations: [Other specified postprocedural states] Onset: 5 Episodic Respiratory failure; insufficiency; arrest (adult) (20 [...] use, unspecified, uncomplicated] Onset: 7 03-09-2016 Episodic Suicide and intentional self-inflicted injury (20 sources) Suicidal thoughts; Translations: [Suicidal ideations] Onset: 5 05-30-2021 Episodic Unclassified (1 source) Fernando Onset: 8 Unclassified (20 sources) Readiness finding; Translations: [Desire for detoxification] Unclassified (20 sources) Admitted to alcohol detoxification center; Translations: [Admitted to alcohol detoxification center] 03-21-2022 Results Test Name Value Interpretation Reference Range Facility CASE MANAGEMon 10-27-2024 CASE MANAGEM [facility] CASE MANAGEM [facility] CBC panel Auto (Bld)on 10-27 Erythrocyte distribution width (RBC) [Ratio] 17.0 % High 11.5-15.0 [facility] Comment on above: Order Comment: Speci men Type: BLOOD SPECIMENOrdering Facility: [facility] Address: [address] [place] [address] Performed By: #### 5 8410-2 ####[facility] LABCLIA [id number] [place] [address] [place] Hematocrit (Bld) [Volume fraction] 25.6 % Low 39.0-51.0 [facility] Comment on above: Order Comment: Speci men Type: BLOOD SPECIMENOrdering Facility: [facility] Address: [address] [place] [address] Performed By: #### 5 8410-2 ####[facility] LABIA [id number] [place] [address] [place] Hemoglobin (Bld) [Mass/Vol] 7.9 g/dL Low 13.0-17.0 [facility] Comment on above: Order Comment: Speci men Type: BLOOD SPECIMENOrdering Facility: [facility] Address: [address] [place] [address] Performed By: #### 5 8410-2 ####[facility] [id number] [place] [address] [place] MCH (RBC) [Entitic mass] 31.5 pg Normal 26.0-34.0 [facility] Comment on above: Order Comment: Speci men Type: BLOOD SPECIMENOrdering Facility: [facility] Address: [address] [place] [address] Performed By: #### 5 8410-2 ####[facility] [id number] [place] [address] [place] MCHC (RBC) [Mass/Vol] 30.9 g/dL Normal 30.5-36.0 [facility] Comment on above: Order Comment: Speci men Type: BLOOD SPECIMENOrdering Facility: [facility] Address: [address] [place] [address] Performed By: #### 5 8410-2 ####[facility] [id number] [place] [address] [place] MCV (RBC) [Entitic vol] 102.0 fL High 80.0-100.0 [facility] Comment on above: Order Comment: Speci men Type: BLOOD SPECIMENOrdering Facility: [facility] Address: [address] [place] [address] Performed By: #### 5 8410-2 ####[facility] LABCLIA [id number] [place] [address] [place] Nucleated RBC (Bld) [#/Vol] 10*3/uL Normal <0.01 [facility] Comment on above: Order Comment: Speci men Type: BLOOD SPECIMENOrdering Facility: [facility] Address: [address] [place] [address] Performed By: #### 5 8410-2 ####[facility] LABIA [id number] [place] [address] [place] Platelet mean volume (Bld) [Entitic vol] 11.1 fL Normal 9.0-12.7 [facility] Comment on above: Order Comment: Speci men Type: BLOOD SPECIMENOrdering Facility: [facility] Address: [address] [place] [address] Performed By: #### 5 8410-2 ####[facility] LABIA [id number] [place] [address] [place] Platelets (Bld) [#/Vol] 111 10*3/uL Low 150-400 [facility] Comment on above: Order Comment: Speci men Type: BLOOD SPECIMENOrdering Facility: [facility] Address: [address] [place] [address] Result Comment: Resu lts checked and verified.No clot detected. Performed By: #### 5 8410-2 ####[facility] LABCLIA [id number] [place] [address] [place] RBC (Bld) [#/Vol] 2.51 10*6/uL Low 4.20-6.00 [facility] Comment on above: Order Comment: Speci men Type: BLOOD SPECIMENOrdering Facility: [facility] Address: [address] [place] [address] Performed By: #### 5 8410-2 ####[facility] LABCLIA [id number] [address] [address] [place] WBC (Bld) [#/Vol] 6.84 10*3/uL Normal 3.70-11.00 [facility] Comment on above: Order Comment: Speci men Type: BLOOD SPECIMENOrdering Facility: [facility] Address: [address] [place] [address] Performed By: #### 5 8410-2 ####[facility] LABCLIA [id number] [address] [address] [place] CNDSon 10-27-2024 CNDS Normal [facility] Comprehensive metabolic 2000 panelon 10-27-2024 Albumin [Mass/Vol] 2.5 g/dL Low 3.9-4.9 [facility] Comment on above: Order Comment: Speci men Type: BLOOD SPECIMENOrdering Facility: [facility] Address: [address] [place] [address] Performed By: #### 1 9123-9, 77223-5, 2777- ####[facility] LABCLIA [id number] [place] [id number] [place] ALP [Catalytic activity/Vol] 104 U/L Normal 38-113 [facility] Comment on above: Order Comment: Speci men Type: BLOOD SPECIMENOrdering Facility: [facility] Address: [address] [place] [address] Performed By: #### 1 9123-9, 29270-1, 2777-1 ####[facility] LABCLIA [id number] [address] [address] [place] ALT [Catalytic activity/Vol] 15 U/L Normal 10-54 [facility] Comment on above: Order Comment: Speci men Type: BLOOD SPECIMENOrdering Facility: [facility] Address: [address] [place] [address] Performed By: #### 1 9123-9, 84059-5, 2777-1 ####[facility] LABCLIA [id number] [address] [address] [place] Anion gap [Moles/Vol] 12 mmol/L Normal 8-15 [facility] Comment on above: Order Comment: Speci men Type: BLOOD SPECIMENOrdering Facility: [facility] Address: [address] [place] [address] Performed By: #### 1 9123-9, 40634-6, 2777-1 ####[facility] LABCLIA [id number] [place] [id number] [place] AST [Catalytic activity/Vol] 24 U/L Normal 14-40 [facility] Comment on above: Order Comment: Speci men Type: BLOOD SPECIMENOrdering Facility: [facility] Address: [address] [place] [address] Performed By: #### 1 9123-9, 09168-3, 2777-1 ####[facility] LABCLIA [id number] [place] [id number] [place] Bilirubin [Mass/Vol] 0.3 mg/dL Normal 0.2-1.3 [facility] Comment on above: Order Comment: Speci men Type: BLOOD SPECIMENOrdering Facility: [facility] Address: [address] [place] [address] Performed By: #### 1 9123-9, 54580-9, 2777- ####[facility] LABCLIA [id number] [place] [address] [place] Calcium [Mass/Vol] 8.5 mg/dL Normal 8.5-10.2 [facility] Comment on above: Order Comment: Speci men Type: BLOOD SPECIMENOrdering Facility: [facility] Address: [address] [place] [address] Performed By: #### 1 9123-9, 34938-3, 2777-1 ####[facility] LABCLIA [id number] [place] [address] [place] Chloride [Moles/Vol] 98 mmol/L Normal 98-107 [facility] Comment on above: Order Comment: Speci men Type: BLOOD SPECIMENOrdering Facility: [facility] Address: [address] [place] [address] Performed By: #### 1 9123-9, 35023-4, 2777-1 ####[facility] LABCLIA [id number] [place] [address] [place] CO2 [Moles/Vol] 27 mmol/L Normal 22-30 [facility] Comment on above: Order Comment: Speci men Type: BLOOD SPECIMENOrdering Facility: [facility] Address: [address] [place] [address] Performed By: #### 1 9123-9, 16537-8, 2777-1 ####[facility] LABCLIA [id number] [place] [address] [place] Creatinine [Mass/Vol] 1.09 mg/dL Normal 0.73-1.22 [facility] Comment on above: Order Comment: Speci men Type: BLOOD SPECIMENOrdering Facility: [facility] Address: [address] [place] [address] Performed By: #### 1 9123-9, 42912-4, 2777-1 ####[facility] LABIA [id number] [place] [address] [place] eGFRcr SerPlBld CKD-EPI 2020 77 mL/min/1.73m??? Normal >=60 [facility] Comment on above: Order Comment: Speci men Type: BLOOD SPECIMENOrdering Facility: [facility] Address: [address] [place] [address] Result Comment: Gurwinder mated Glomerular Filtration Rate [...] accurately reflect actual GFR. Performed By: #### 1 23-9, , 2776-02 ####[facility] LABCLIA [id number] [address] [id number], [place] [address] [place] Glucose [Mass/Vol] 92 mg/dL Normal 74-99 [facility] Comment on above: Order Comment: Gini nowak Type: BLOOD SPECIMENOrdering Facility: [facility] Address: [address] [place] [address] Result Comment: The [place] [employer] (ADA) provides guidance for cutoff values for fasting glucose and random glucose. The ADA defines fasting as no caloric intake for at least 8 hours. Fasting plasma glucose results between 100 to 125 mg/dL indicate increased risk for diabetes (prediabetes).Fasting plasma glucose results greater than or equal to 126 mg/dL meet the criteria for diagnosis of diabetes. In the absence of unequivocal hyperglycemia, results should be confirmed by repeat testing. In a patient with classic symptoms of hyperglycemia or hyperglycemic crisis, random plasma glucose results greater than or equal to 200 mg/dL meet the criteria for diagnosis of diabetes.Reference: Standards of Medical Care in Diabetes 2016, [place] [employer]. Diabetes Care. 2016.39(Suppl 1). Performed By: #### 1 23-9, , 2776-02 ####[facility] LABCLIA [id number] [address] [id number] [address] [place] Potassium [Moles/Vol] 5.0 mmol/L Normal 3.7-5.1 [facility] Comment on above: Order Comment: Gini nowak Type: BLOOD SPECIMENOrdering Facility: [facility] Address: [address] [place] [address] Performed By: #### 1 9123-9, , 2776-02 ####[facility] LABCLIA [id number] [address] [id number], [place] [address] [place] Protein [Mass/Vol] 4.9 g/dL Low 6.3-8.0 [facility] Comment on above: Order Comment: Speci men Type: BLOOD SPECIMENOrdering Facility: [facility] Address: [address] [place], [place] [address] Performed By: #### 1 9123-9, 94452-8, 2776- ####[facility] LABCLIA [id number] [place] [id number] [place] Sodium [Moles/Vol] 137 mmol/L Normal 136-144 [facility] Comment on above: Order Comment: Speci men Type: BLOOD SPECIMENOrdering Facility: [facility] Address: [address] [place] [address] Performed By: #### 1 9123-9, 34968-0, 2776-02 ####[facility] LABCLIA [id number] [place] [id number] [place] Urea nitrogen [Mass/Vol] 23 mg/dL Normal 9-24 [facility] Comment on above: Order Comment: Speci men Type: BLOOD SPECIMENOrdering Facility: [facility] Address: [address] [place], [place] [address] Performed By: #### 1 9123-9, 55453-9, 2776-02 ####[facility] LABIA [id number] [address] [address] [place] ECG COMPLETEon 10-27-2024 ECG COMPLETE Normal [facility] Magnesium SerPl-mCncon 10-27 Magnesium [Mass/Vol] 2.3 mg/dL Normal 1.7-2.3 [facility] Comment on above: Order Comment: Speci men Type: BLOOD SPECIMENOrdering Facility: [facility] Address: [address] [place], [place] [address] Performed By: #### 1 9123-9, 38186-8, 2776-02 ####[facility] LABIA [id number] [address] [address] [place] PT EDon 10-27-2024 PT ED Normal [facility] PT panel Coag (PPP)on 2024 INR Coag (PPP) [Relative time] 1.3 {INR} Normal 0.9-1.3 [facility] Comment on above: Order Comment: Gini nowak Type: BLOOD SPECIMENOrdering Facility: [facility] Address: [address] [place] [address] Result Comment: Nettie min K Antagonist (VKA) Therapeutic Range: INR 2 to 3 (Target INR of 2.5)Note: For patients treated with VKA drugs, such as warfarin, the [place] [employer] 2012 Guideline recommends a therapeutic INR range of 2 to 3 (target INR of 2.5). This recommendation includes high-risk patients with antiphospholipid syndrome with previous arterial or venous thromboembolism, current-generation mechanical or bioprosthetic aortic heart valve replacement.Note: Patients with mechanical aortic valve replacement and additional risk factors for thromboembolic events (atrial fibrillation, previous thromboembolism, LV dysfunction, hypercoagulable conditions) or an older generation mechanical AVR (i.e., ball in-Cage) or any mechanical MVR should have a INR therapeutic range of 2.5 to 3.5 (target INR of 3).Mary Bethtt GH, et al. Chest 2012, 141:7S-47SNishimura RA, et al. [facility] 2017, 70: 252-289 Performed By: #### 3 4528-0 ####[facility] LABIA [id number] [place] [address] [place] PT Coag (PPP) [Time] 13.5 s High 9.7-13.0 [facility] Comment on above: Order Comment: Gini nowak Type: BLOOD SPECIMENOrdering Facility: [facility] Address: [address] [place] [address] Performed By: #### 3 4528-0 ####[facility] LABIA [id number] [place] [id number] [place] Phosphate SerPl-mCncon 10-27 Phosphate [Mass/Vol] 3.7 mg/dL Normal 2.7-4.8 [facility] Comment on above: Order Comment: Speci men Type: BLOOD SPECIMENOrdering Facility: [facility] Address: [address] [place] [address] Performed By: #### 1 9123-9, 63320-8, 2777-1 ####[facility] LABCLIA [id number] [address] [address] [place] THERAPY NTon 10-27-2024 THERAPY NT Normal [facility] THERAPY NT Normal [facility] XR CHEST 2V FRONTAL/LATon XR CHEST 2V FRONTAL/LAT Normal C [facility] Basic metabolic 2000 panelon 10-26-2024 Anion gap [Moles/Vol] 9 mmol/L Normal 8-15 [facility] Comment on above: Order Comment: Speci men Type: BLOOD SPECIMENOrdering Facility: [facility] Address: [address] [place] [address] Performed By: #### 2 4321-2 ####[facility] LABCLIA [id number] [address] [address] [place] Calcium [Mass/Vol] 8.4 mg/dL Low 8.5-10.2 [facility] Comment on above: Order Comment: Speci men Type: BLOOD SPECIMENOrdering Facility: [facility] Address: [address] [place] [address] Performed By: #### 2 4321-2 ####[facility] LABCLIA [id number] [address] [address] [place] Chloride [Moles/Vol] 99 mmol/L Normal 98-107 [facility] Comment on above: Order Comment: Speci men Type: BLOOD SPECIMENOrdering Facility: [facility] Address: [address] [place] [address] Performed By: #### 2 4321-2 ####[facility] LABCLIA [id number] [place] [id number] [place] CO2 [Moles/Vol] 25 mmol/L Normal 22-30 [facility] Comment on above: Order Comment: Speci men Type: BLOOD SPECIMENOrdering Facility: [facility] Address: [address] [place] [address] Performed By: #### 2 4321-2 ####[facility] LABCLIA [id number] [facility] [place] [id number] [place] Creatinine [Mass/Vol] 1.16 mg/dL Normal 0.73-1.22 [facility] Comment on above: Order Comment: Speci men Type: BLOOD SPECIMENOrdering Facility: [facility] Address: [address] [place] [address] Performed By: #### 2 4321-2 ####[facility] LABCLIA [id number] [place] [address] [place] eGFRcr SerPlBld CKD-EPI 2020 71 mL/min/1.73m??? Normal >=60 [facility] Comment on above: Order Comment: Speci men Type: BLOOD SPECIMENOrdering Facility: [facility] Address: [address] [place] [address] Result Comment: Gurwinder mated Glomerular Filtration Rate [...] reflect actual GFR. Performed By: #### 2 4321-2 ####[facility] LABIA [id number] [place] [id number] [place] Glucose [Mass/Vol] 142 mg/dL High 74-99 [facility] Comment on above: Order Comment: Speci men Type: BLOOD SPECIMENOrdering Facility: [facility] Address: [address] [place] [address] Result Comment: The [place] [employer] (ADA) provides guidance for cutoff values for fasting glucose and random glucose. The ADA defines fasting as no caloric intake for at least 8 hours. Fasting plasma glucose results between 100 to 125 mg/dL indicate increased risk for diabetes (prediabetes).Fasting plasma glucose results greater than or equal to 126 mg/dL meet the criteria for diagnosis of diabetes. In the absence of unequivocal hyperglycemia, results should be confirmed by repeat testing. In a patient with classic symptoms of hyperglycemia or hyperglycemic crisis, random plasma glucose results greater than or equal to 200 mg/dL meet the criteria for diagnosis of diabetes.Reference: Standards of Medical Care in Diabetes 2016, [place] [employer]. Diabetes Care. 2016.39(Suppl 1). Performed By: #### 2 4321-2 ####[facility] LABCLIA [id number] [place] [address] [place] Potassium [Moles/Vol] 5.2 mmol/L High 3.7-5.1 [facility] Comment on above: Order Comment: Speci men Type: BLOOD SPECIMENOrdering Facility: [facility] Address: [address] [place] [address] Performed By: #### 2 4321-2 ####[facility] LABIA [id number] [place] [id number] [place] Sodium [Moles/Vol] 133 mmol/L Low 136-144 [facility] Comment on above: Order Comment: Speci men Type: BLOOD SPECIMENOrdering Facility: [facility] Address: [address] [place] [address] Performed By: #### 2 4321-2 ####[facility] LABIA [id number] [place] [id number] [place] Urea nitrogen [Mass/Vol] 21 mg/dL Normal 9-24 [facility] Comment on above: Order Comment: Speci men Type: BLOOD SPECIMENOrdering Facility: [facility] Address: [address] [place] [address] Performed By: #### 2 4321-2 ####[facility] LABIA [id number] [address] [address] [place] Anion gap [Moles/Vol] 8 mmol/L Normal 8-15 [facility] Comment on above: Order Comment: Speci men Type: BLOOD SPECIMENOrdering Facility: [facility] Address: [address] [place] [address] Performed By: #### 2 4321-2 ####[facility] LABCLIA [id number] [place] [id number] [place] Calcium [Mass/Vol] 8.5 mg/dL Normal 8.5-10.2 [facility] Comment on above: Order Comment: Speci men Type: BLOOD SPECIMENOrdering Facility: [facility] Address: [address] [place] [address] Performed By: #### 2 4321-2 ####[facility] LABCLIA [id number] [place] [address] [place] Chloride [Moles/Vol] 100 mmol/L Normal 98-107 [facility] Comment on above: Order Comment: Speci men Type: BLOOD SPECIMENOrdering Facility: [facility] Address: [address] [place] [address] Performed By: #### 2 4321-2 ####[facility] LABCLIA [id number] [place] [id number] [place] CO2 [Moles/Vol] 26 mmol/L Normal 22-30 [facility] Comment on above: Order Comment: Speci men Type: BLOOD SPECIMENOrdering Facility: [facility] Address: [address] [place] [address] Performed By: #### 2 4321-2 ####[facility] LABCLIA [id number] [place] [id number] [place] Creatinine [Mass/Vol] 1.16 mg/dL Normal 0.73-1.22 [facility] Comment on above: Order Comment: Speci men Type: BLOOD SPECIMENOrdering Facility: [facility] Address: [address] [place] [address] Performed By: #### 2 4321-2 ####[facility] LABCLIA [id number] [place] [address] [place] eGFRcr SerPlBld CKD-EPI 2020 71 mL/min/1.73m??? Normal >=60 [facility] Comment on above: Order Comment: Gini nowak Type: BLOOD SPECIMENOrdering Facility: [facility] Address: [address] [place] [address] Result Comment: Gurwinder mated Glomerular Filtration Rate [...] reflect actual GFR. Performed By: #### 2 4321-2 ####[facility] LABCLIA [id number] [place] [address] [place] Glucose [Mass/Vol] 187 mg/dL High 74-99 [facility] Comment on above: Order Comment: Gini nowak Type: BLOOD SPECIMENOrdering Facility: [facility] Address: [address] [place] [address] Result Comment: The [place] [employer] (ADA) provides guidance for cutoff values for fasting glucose and random glucose. The ADA defines fasting as no caloric intake for at least 8 hours. Fasting plasma glucose results between 100 to 125 mg/dL indicate increased risk for diabetes (prediabetes).Fasting plasma glucose results greater than or equal to 126 mg/dL meet the criteria for diagnosis of diabetes. In the absence of unequivocal hyperglycemia, results should be confirmed by repeat testing. In a patient with classic symptoms of hyperglycemia or hyperglycemic crisis, random plasma glucose results greater than or equal to 200 mg/dL meet the criteria for diagnosis of diabetes.Reference: Standards of Medical Care in Diabetes 2016, [place] [employer]. Diabetes Care. 2016.39(Suppl 1). Performed By: #### 2 4321-2 ####[facility] LABCLIA [id number] [place] [id number] [place] Potassium [Moles/Vol] 5.7 mmol/L High 3.7-5.1 [facility] Comment on above: Order Comment: Speci men Type: BLOOD SPECIMENOrdering Facility: [facility] Address: [address] [place] [address] Performed By: #### 2 4321-2 ####[facility] LABCLIA [id number] [place] [address] [place] Sodium [Moles/Vol] 134 mmol/L Low 136-144 [facility] Comment on above: Order Comment: Speci men Type: BLOOD SPECIMENOrdering Facility: [facility] Address: [address] [place] [address] Performed By: #### 2 4321-2 ####[facility] LABIA [id number] [place] [address] [place] Urea nitrogen [Mass/Vol] 21 mg/dL Normal 9-24 [facility] Comment on above: Order Comment: Speci men Type: BLOOD SPECIMENOrdering Facility: [facility] Address: [address] [place] [address] Performed By: #### 2 4321-2 ####[facility] LABIA [id number] [place] [address] [place] CBC panel Auto (Bld)on 10-26 Erythrocyte distribution width (RBC) [Ratio] 17.3 % High 11.5-15.0 [facility] Comment on above: Order Comment: Speci men Type: BLOOD SPECIMENOrdering Facility: [facility] Address: [address] [place] [address] Performed By: #### 5 8410-2 ####[facility] LABCLIA [id number] [place] [address] [place] Hematocrit (Bld) [Volume fraction] 24.2 % Low 39.0-51.0 [facility] Comment on above: Order Comment: Speci men Type: BLOOD SPECIMENOrdering Facility: [facility] Address: [address] [place] [address] Performed By: #### 5 8410-2 ####[facility] LABIA [id number] [place] [address] [place] Hemoglobin (Bld) [Mass/Vol] 7.8 g/dL Low 13.0-17.0 [facility] Comment on above: Order Comment: Speci men Type: BLOOD SPECIMENOrdering Facility: [facility] Address: [address] [place] [address] Performed By: #### 5 8410-2 ####[facility] [id number] [place] [address] [place] MCH (RBC) [Entitic mass] 32.8 pg Normal 26.0-34.0 [facility] Comment on above: Order Comment: Speci men Type: BLOOD SPECIMENOrdering Facility: [facility] Address: [address] [place] [address] Performed By: #### 5 8410-2 ####[facility] [id number] [place] [address] [place] MCHC (RBC) [Mass/Vol] 32.2 g/dL Normal 30.5-36.0 [facility] Comment on above: Order Comment: Speci men Type: BLOOD SPECIMENOrdering Facility: [facility] Address: [address] [place] [address] Performed By: #### 5 8410-2 ####[facility] [id number] [place] [address] [place] MCV (RBC) [Entitic vol] 101.7 fL High 80.0-100.0 [facility] Comment on above: Order Comment: Speci men Type: BLOOD SPECIMENOrdering Facility: [facility] Address: [address] [place] [address] Performed By: #### 5 8410-2 ####[facility] LABCLIA [id number] [place] [address] [place] Nucleated RBC (Bld) [#/Vol] 10*3/uL Normal <0.01 [facility] Comment on above: Order Comment: Speci men Type: BLOOD SPECIMENOrdering Facility: [facility] Address: [address] [place] [address] Performed By: #### 5 8410-2 ####[facility] LABCLIA [id number] [place] [address] [place] Platelet mean volume (Bld) [Entitic vol] 11.7 fL Normal 9.0-12.7 [facility] Comment on above: Order Comment: Speci men Type: BLOOD SPECIMENOrdering Facility: [facility] Address: [address] [place] [address] Performed By: #### 5 8410-2 ####[facility] LABIA [id number] [place] [address] [place] Platelets (Bld) [#/Vol] 103 10*3/uL Low 150-400 [facility] Comment on above: Order Comment: Speci men Type: BLOOD SPECIMENOrdering Facility: [facility] Address: [address] [place] [address] Result Comment: No c lot detected. Performed By: #### 5 8410-2 ####[facility] LABCLIA [id number] [place] [address] [place] RBC (Bld) [#/Vol] 2.38 10*6/uL Low 4.20-6.00 [facility] Comment on above: Order Comment: Speci men Type: BLOOD SPECIMENOrdering Facility: [facility] Address: [address] [place] [address] Performed By: #### 5 8410-2 ####[facility] LABCLIA [id number] [address] [address] [place] WBC (Bld) [#/Vol] 8.82 10*3/uL Normal 3.70-11.00 [facility] Comment on above: Order Comment: Speci men Type: BLOOD SPECIMENOrdering Facility: [facility] Address: [address] [place] [address] Performed By: #### 5 8410-2 ####[facility] LABCLIA [id number] [address] [address] [place] CONSULTon 10-26-2024 CONSULT [address] [facility] metabolic 2000 panelon 10-26-2024 Albumin [Mass/Vol] 2.5 g/dL Low 3.9-4.9 [facility] Comment on above: Order Comment: Speci men Type: BLOOD SPECIMENOrdering Facility: [facility] Address: [address] [place] [address] Performed By: #### 2 4323-8, 2777, ####[facility] LABCLIA [id number] [place] [address] [place] ALP [Catalytic activity/Vol] 110 U/L Normal 38-113 [facility] Comment on above: Order Comment: Speci men Type: BLOOD SPECIMENOrdering Facility: [facility] Address: [address] [place] [address] Performed By: #### 2 4323-8, 2777, ####[facility] LABCLIA [id number] [address] [address] [place] ALT [Catalytic activity/Vol] 13 U/L Normal 10-54 [facility] Comment on above: Order Comment: Speci men Type: BLOOD SPECIMENOrdering Facility: [facility] Address: [address] [place] [address] Performed By: #### 2 4323-8, 2777-, ####[facility] LABCLIA [id number] [address] [place] [address] [place] Anion gap [Moles/Vol] 6 mmol/L Low 8-15 [facility] Comment on above: Order Comment: Speci men Type: BLOOD SPECIMENOrdering Facility: [facility] Address: [address] [place], [place] [address] Performed By: #### 2 4323-8, 2777-1, ####[facility] LABCLIA [id number] [address] [address] [place] AST [Catalytic activity/Vol] 23 U/L Normal 14-40 [facility] Comment on above: Order Comment: Speci men Type: BLOOD SPECIMENOrdering Facility: [facility] Address: [address] [place], [place] [address] Performed By: #### 2 4323-8, 2777, ####[facility] LABCLIA [id number] [place] [id number] [place] Bilirubin [Mass/Vol] 0.3 mg/dL Normal 0.2-1.3 [facility] Comment on above: Order Comment: Speci men Type: BLOOD SPECIMENOrdering Facility: [facility] Address: [address] [place], [place] [address] Performed By: #### 2 4323-8, 2777, ####[facility] LABCLIA [id number] [address] [address] [place] Calcium [Mass/Vol] 8.3 mg/dL Low 8.5-10.2 [facility] Comment on above: Order Comment: Speci men Type: BLOOD SPECIMENOrdering Facility: [facility] Address: [address] [place], [place] [address] Performed By: #### 2 4323-8, 27771, ####[facility] LABCLIA [id number] [address] [address] [place] Chloride [Moles/Vol] 101 mmol/L Normal 98-107 [facility] Comment on above: Order Comment: Speci men Type: BLOOD SPECIMENOrdering Facility: [facility] Address: [address] [place], [place] [address] Performed By: #### 2 4323-8, 2777-1, 97667-8 ####[facility] LABCLIA [id number] [place] [id number] [place] CO2 [Moles/Vol] 28 mmol/L Normal 22-30 [facility] Comment on above: Order Comment: Speci men Type: BLOOD SPECIMENOrdering Facility: [facility] Address: [address] [place] [address] Performed By: #### 2 4323-8, 2777-1, 41864-9 ####[facility] LABCLIA [id number] [place] [address] [place] Creatinine [Mass/Vol] 1.04 mg/dL Normal 0.73-1.22 [facility] Comment on above: Order Comment: Speci men Type: BLOOD SPECIMENOrdering Facility: [facility] Address: [address] [place] [address] Performed By: #### 2 4323-8, 2777-1, 78742-1 ####[facility] LABIA [id number] [place] [id number] [place] eGFRcr SerPlBld CKD-EPI 2020 81 mL/min/1.73m??? Normal >=60 [facility] Comment on above: Order Comment: Speci men Type: BLOOD SPECIMENOrdering Facility: [facility] Address: [address] [place], [place] [address] Result Comment: Gurwinder mated Glomerular Filtration Rate [...] actual GFR. Performed By: #### 2 4323-8, 2776-02, ####[facility] LABCLIA [id number] [facility] [id number] [place] [address] [place] Glucose [Mass/Vol] 129 mg/dL High 74-99 [facility] Comment on above: Order Comment: Speci men Type: BLOOD SPECIMENOrdering Facility: [facility] Address: [address] [place] [address] Result Comment: The [place] [employer] (ADA) provides guidance for cutoff values for fasting glucose and random glucose. The ADA defines fasting as no caloric intake for at least 8 hours. Fasting plasma glucose results between 100 to 125 mg/dL indicate increased risk for diabetes (prediabetes).Fasting plasma glucose results greater than or equal to 126 mg/dL meet the criteria for diagnosis of diabetes. In the absence of unequivocal hyperglycemia, results should be confirmed by repeat testing. In a patient with classic symptoms of hyperglycemia or hyperglycemic crisis, random plasma glucose results greater than or equal to 200 mg/dL meet the criteria for diagnosis of diabetes.Reference: Standards of Medical Care in Diabetes 2016, [place] [employer]. Diabetes Care. 2016.39(Suppl 1). Performed By: #### 2 4323-8, 2776-02, ####[facility] LABCLIA [id number] [facility] [address] [address] [place] Potassium [Moles/Vol] 5.5 mmol/L High 3.7-5.1 [facility] Comment on above: Order Comment: Speci men Type: BLOOD SPECIMENOrdering Facility: [facility] Address: [address] [place] [address] Performed By: #### 2 4323-8, 2776-02, ####[facility] LABCLIA [id number] [facility] [address] [place] Protein [Mass/Vol] 4.7 g/dL Low 6.3-8.0 [facility] Comment on above: Order Comment: Speci men Type: BLOOD SPECIMENOrdering Facility: [facility] Address: [address] [place] [address] Performed By: #### 2 4323-8, 2776-02, ####[facility] LABCLIA [id number] [place] [id number] [place] Sodium [Moles/Vol] 135 mmol/L Low 136-144 [facility] Comment on above: Order Comment: Speci men Type: BLOOD SPECIMENOrdering Facility: [facility] Address: [address] [place] [address] Performed By: #### 2 4323-8, 2776-02, ####[facility] LABIA [id number] [place] [id number] [place] Urea nitrogen [Mass/Vol] 21 mg/dL Normal 9-24 [facility] Comment on above: Order Comment: Speci men Type: BLOOD SPECIMENOrdering Facility: [facility] Address: [address] [place] [address] Performed By: #### 2 4323-8, 2776-02, ####[facility] LABIA [id number] [place] [id number] [place] ECG COMPLETEon 10-26-2024 ECG COMPLETE Normal [facility] Fact Xa PPP-aCncon Coagulation factor X activated act Coag Qn (PPP) <0.10 Normal <0.10 [facility] Comment on above: Order Comment: Speci men Type: BLOOD SPECIMENOrdering Facility: [facility] Address: [address] [place] [address] Result Comment: The recommended therapeutic range for treatment of venous and arterial thrombosis with intravenous unfractionated heparin is an anti Xa activity level of 0.3 to 0.7 IU/mL. In patients with concomitant therapy with thrombolytic agents and/or platelet glycoprotein IIb/IIIa antagonists, the recommended therapeutic range is an anti Xa activity level of 0.2 to 0.5 IU/mL. Performed By: #### 3 217-7, 06646-0 ####[facility] LABIA [id number] [place] [id number] [place] Magnesium SerPl-mCncon 10-26 Magnesium [Mass/Vol] 2.3 mg/dL Normal 1.7-2.3 [facility] Comment on above: Order Comment: Specsonja nowak Type: BLOOD SPECIMENOrdering Facility: [facility] Address: [address] [place] [address] Performed By: #### 2 4323-8, 2777-1, 20250-3 ####[facility] [id number] [address] STATES OF [facility] PT EDon 10-26-2024 PT ED Normal [facility] PT panel Coag (PPP)on 2024 INR Coag (PPP) [Relative time] 1.2 {INR} Normal 0.9-1.3 [facility] Comment on above: Order Comment: Gini nowak Type: BLOOD SPECIMENOrdering Facility: [facility] Address: [address] [place] [address] Result Comment: Nettie min K Antagonist (VKA) Therapeutic Range: INR 2 to 3 (Target INR of 2.5)Note: For patients treated with VKA drugs, such as warfarin, the [place] [employer] 2012 Guideline recommends a therapeutic INR range of 2 to 3 (target INR of 2.5). This recommendation includes high-risk patients with antiphospholipid syndrome with previous arterial or venous thromboembolism, current-generation mechanical or bioprosthetic aortic heart valve replacement.Note: Patients with mechanical aortic valve replacement and additional risk factors for thromboembolic events (atrial fibrillation, previous thromboembolism, LV dysfunction, hypercoagulable conditions) or an older generation mechanical AVR (i.e., ball in-Cage) or any mechanical MVR should have a INR therapeutic range of 2.5 to 3.5 (target INR of 3).Cecile GH, et al. Chest 2012, 141:7S-47SNishimura RA, et al. JACC 2017, 70: 252-289 Performed By: #### 3 217-7, 53923-9 ####[facility] LABIA [id number] [address] [address] [place] PT Coag (PPP) [Time] 13.3 s High 9.7-13.0 [facility] Comment on above: Order Comment: Speci men Type: BLOOD SPECIMENOrdering Facility: [facility] Address: [address] [place] [address] Performed By: #### 3 217-7, 69196-6 ####[facility] [id number] [place] [id number] [place] Phosphate SerPl-mCncon 10-26 Phosphate [Mass/Vol] 2.7 mg/dL Normal 2.7-4.8 [facility] Comment on above: Order Comment: Speci men Type: BLOOD SPECIMENOrdering Facility: [facility] Address: [address] [place] [address] Performed By: #### 2 4323-8, 2777-1, 09553-0 ####[facility] [id number] [place] [address] [place] THERAPY NTon 10-26-2024 THERAPY NT Normal [facility] THERAPY NT Normal [facility] URINALYSIS, DIPSTICK ONLYon 10-26-2024 Bilirubin Ql (U) Negative Normal Negative [facility] Comment on above: Order Comment: Speci men Type: URINE SPECIMENOrdering Facility: [facility] Address: [address] [place] [address] Performed By: #### U A ####[facility] [id number] [place] [address] [place] Clarity (Unsp spec) Clear Normal Clear [facility] Comment on above: Order Comment: Speci men Type: URINE SPECIMENOrdering Facility: [facility] Address: [address] [place], [place] [address] Performed By: #### U A ####[facility] LABCLIA [id number] [address], [facility]95 [place] Color (U) Yellow Normal Yellow [facility] Comment on above: Order Comment: Speci men Type: URINE SPECIMENOrdering Facility: [facility] Address: [address] [place] [address] Performed By: #### U A ####[facility] LABCLIA [id number] [address], [facility]95 [place] Glucose Test strip (U) [Mass/Vol] Negative Normal Negative [facility] Comment on above: Order Comment: Speci men Type: URINE SPECIMENOrdering Facility: [facility] Address: [address] [place] [address] Performed By: #### U A ####[facility] LABCLIA [id number] [address], [place] [address] [place] Hemoglobin Ql (U) Negative Normal Negative [facility] Comment on above: Order Comment: Speci men Type: URINE SPECIMENOrdering Facility: [facility] Address: [address] [place] [address] Performed By: #### U A ####[facility] LABCLIA [id number] [place] [id number] [place] Ketones Ql (U) Negative Normal Negative [facility] Comment on above: Order Comment: Speci men Type: URINE SPECIMENOrdering Facility: [facility] Address: [address] [place] [address] Performed By: #### U A ####[facility] LABCLIA [id number] [place] [id number] [place] Leukocyte esterase Test strip Ql (U) Negative Normal Negative [facility] Comment on above: Order Comment: Speci men Type: URINE SPECIMENOrdering Facility: [facility] Address: [address] [place] [address] Performed By: #### U A ####[facility] LABCLIA [id number] [place] [address] [place] Nitrite Ql (U) Negative Normal Negative [facility] Comment on above: Order Comment: Speci men Type: URINE SPECIMENOrdering Facility: [facility] Address: [address] [place] [address] Performed By: #### U A ####[facility] LABCLIA [id number] [place] [address] [place] pH (U) 7.0 [pH] Normal 5.0-8.0 [facility] Comment on above: Order Comment: Speci men Type: URINE SPECIMENOrdering Facility: [facility] Address: [address] [place] [address] Performed By: #### U A ####[facility] LABIA [id number] [place] [address] [place] Protein (U) [Mass/Vol] Negative Normal Negative [facility] Comment on above: Order Comment: Speci men Type: URINE SPECIMENOrdering Facility: [facility] Address: [address] [place] [address] Performed By: #### U A ####[facility] LABIA [id number] [place] [address] [place] Specific gravity (U) [Rel density] 1.012 Normal 1.005-1.030 [facility] Comment on above: Order Comment: Speci men Type: URINE SPECIMENOrdering Facility: [facility] Address: [address] [place] [address] Performed By: #### U A ####[facility] LABIA [id number] [place] [address] [place] Urobilinogen Ql (U) 0.2 EU/dL Normal 0.2-1.0 EU/dL [facility] Comment on above: Order Comment: Speci men Type: URINE SPECIMENOrdering Facility: [facility] Address: [address] [place] [address] Performed By: #### U A ####[facility] LABCLIA [id number] [place] [id number] [place] XR CHEST 1V FRONTAL PORTon 0 10-26-2024 XR CHEST 1V FRONTAL PORT Normal [facility] CASE MANAGEMon 10-25-2024 CASE MANAGEM Normal [facility] CBC panel Auto (Bld)on 10-25 Erythrocyte distribution width (RBC) [Ratio] 17.4 % High 11.5-15.0 [facility] Comment on above: Order Comment: Speci men Type: BLOOD SPECIMENOrdering Facility: [facility] Address: [address] [place] [address] Performed By: #### 5 8410-2 ####[facility] LABCLIA [id number] [place] [address] [place] Hematocrit (Bld) [Volume fraction] 22.5 % Low 39.0-51.0 [facility] Comment on above: Order Comment: Speci men Type: BLOOD SPECIMENOrdering Facility: [facility] Address: [address] [place] [address] Performed By: #### 5 8410-2 ####[facility] LABCLIA [id number] [place] [id number] [place] Hemoglobin (Bld) [Mass/Vol] 7.2 g/dL Low 13.0-17.0 [facility] Comment on above: Order Comment: Speci men Type: BLOOD SPECIMENOrdering Facility: [facility] Address: [address] [place] [address] Performed By: #### 5 8410-2 ####[facility] LABCLIA [id number] [place] [id number] [place] MCH (RBC) [Entitic mass] 32.3 pg Normal 26.0-34.0 [facility] Comment on above: Order Comment: Speci men Type: BLOOD SPECIMENOrdering Facility: [facility] Address: [address] [place] [address] Performed By: #### 5 8410-2 ####[facility] LABIA [id number] [place] [address] [place] MCHC (RBC) [Mass/Vol] 32.0 g/dL Normal 30.5-36.0 [facility] Comment on above: Order Comment: Speci men Type: BLOOD SPECIMENOrdering Facility: [facility] Address: [address] [place] [address] Performed By: #### 5 8410-2 ####[facility] LABIA [id number] [place] [address] [place] MCV (RBC) [Entitic vol] 100.9 fL High 80.0-100.0 C [facility] Comment on above: Order Comment: Speci men Type: BLOOD SPECIMENOrdering Facility: [facility] Address: [address] [place] [address] Performed By: #### 5 8410-2 ####[facility] LABIA [id number] [place] [address] [place] Nucleated RBC (Bld) [#/Vol] 10*3/uL Normal <0.01 [facility] Comment on above: Order Comment: Speci men Type: BLOOD SPECIMENOrdering Facility: [facility] Address: [address] [place] [address] Performed By: #### 5 8410-2 ####[facility] LABIA [id number] [place] [address] [place] Platelet mean volume (Bld) [Entitic vol] 12.4 fL Normal 9.0-12.7 [facility] Comment on above: Order Comment: Speci men Type: BLOOD SPECIMENOrdering Facility: [facility] Address: [address] [place] [address] Performed By: #### 5 8410-2 ####[facility] LABCLIA [id number] [address] [address] [place] Platelets (Bld) [#/Vol] 90 10*3/uL Low 150-400 C [facility] Comment on above: Order Comment: Speci men Type: BLOOD SPECIMENOrdering Facility: [facility] Address: [address] [place] [address] Performed By: #### 5 8410-2 ####[facility] LABIA [id number] [place] [id number] [place] RBC (Bld) [#/Vol] 2.23 10*6/uL Low 4.20-6.00 [facility] Comment on above: Order Comment: Speci men Type: BLOOD SPECIMENOrdering Facility: [facility] Address: [address] [place] [address] Performed By: #### 5 8410-2 ####[facility] LABIA [id number] [place] [id number] [place] WBC (Bld) [#/Vol] 5.94 10*3/uL Normal 3.70-11.00 [facility] Comment on above: Order Comment: Speci men Type: BLOOD SPECIMENOrdering Facility: [facility] Address: [address] [place] [address] Performed By: #### 5 8410-2 ####[facility] LABIA [id number] [place] [id number] [facility] [place] Comprehensive metabolic 2000 panelon 10-25-2024 Albumin [Mass/Vol] 2.3 g/dL Low 3.9-4.9 [facility] Comment on above: Order Comment: Speci men Type: BLOOD SPECIMENOrdering Facility: [facility] Address: [address] [place] [address] Performed By: #### 2 4323-8, 2777-1, 11735-4 ####[facility] LABCLIA [id number] [address] [place] [address] [place] ALP [Catalytic activity/Vol] 100 U/L Normal 38-113 [facility] Comment on above: Order Comment: Speci men Type: BLOOD SPECIMENOrdering Facility: [facility] Address: [address] [place] [address] Performed By: #### 2 4323-8, 27708-08, ####[facility] LABCLIA [id number] [address] [place] [address] [place] ALT [Catalytic activity/Vol] 14 U/L Normal 10-54 [facility] Comment on above: Order Comment: Speci men Type: BLOOD SPECIMENOrdering Facility: [facility] Address: [address] [place] [address] Performed By: #### 2 4323-8, 27708-08, ####[facility] LABCLIA [id number] [address] [place] [address] [place] Anion gap [Moles/Vol] 8 mmol/L Normal 8-15 [facility] Comment on above: Order Comment: Speci men Type: BLOOD SPECIMENOrdering Facility: [facility] Address: [address] [place] [address] Performed By: #### 2 4323-8, 27708-08, ####[facility] LABCLIA [id number] [address] [place] [address] [place] AST [Catalytic activity/Vol] 26 U/L Normal 14-40 [facility] Comment on above: Order Comment: Speci men Type: BLOOD SPECIMENOrdering Facility: [facility] Address: [address] [place] [address] Performed By: #### 2 4323-8, 27708-08, ####[facility] LABCLIA [id number] [address] [place] [address] [place] Bilirubin [Mass/Vol] 0.2 mg/dL Normal 0.2-1.3 [facility] Comment on above: Order Comment: Speci men Type: BLOOD SPECIMENOrdering Facility: [facility] Address: [address] [place] [address] Performed By: #### 2 4323-8, 2776-02, ####[facility] LABCLIA [id number] [place] [address] [place] Calcium [Mass/Vol] 8.0 mg/dL Low 8.5-10.2 [facility] Comment on above: Order Comment: Speci men Type: BLOOD SPECIMENOrdering Facility: [facility] Address: [address] [place] [address] Performed By: #### 2 4323-8, 2776-02, ####[facility] LABCLIA [id number] [place] [address] [place] Chloride [Moles/Vol] 100 mmol/L Normal 98-107 [facility] Comment on above: Order Comment: Speci men Type: BLOOD SPECIMENOrdering Facility: [facility] Address: [address] [place] [address] Performed By: #### 2 4323-8, 2776-02, ####[facility] LABCLIA [id number] [place] [id number] [place] CO2 [Moles/Vol] 26 mmol/L Normal 22-30 [facility] Comment on above: Order Comment: Speci men Type: BLOOD SPECIMENOrdering Facility: [facility] Address: [address] [place] [address] Performed By: #### 2 4323-8, 2776-02, ####[facility] LABCLIA [id number] [place] [id number] [place] Creatinine [Mass/Vol] 1.39 mg/dL High 0.73-1.22 [facility] Comment on above: Order Comment: Gini nowak Type: BLOOD SPECIMENOrdering Facility: [facility] Address: [address] [place], [place] [address] Performed By: #### 2 4323-8, 277-, ####[facility] LABCLIA [id number] [place] [id number] [place] eGFRcr SerPlBld CKD-EPI 2020 57 mL/min/1.73m??? Low >=60 [facility] Comment on above: Order Comment: Gini nowak Type: BLOOD SPECIMENOrdering Facility: [facility] Address: [address] [place] [address] Result Comment: Gurwinder mated Glomerular Filtration Rate [...] actual GFR. Performed By: #### 2 4323-8, 2776-02, ####[facility] LABCLIA [id number] [place] [id number] [place] Glucose [Mass/Vol] 138 mg/dL High 74-99 [facility] Comment on above: Order Comment: Gini nowak Type: BLOOD SPECIMENOrdering Facility: [facility] Address: [address] [place] [address] Result Comment: The [place] [employer] (ADA) provides guidance for cutoff values for fasting glucose and random glucose. The ADA defines fasting as no caloric intake for at least 8 hours. Fasting plasma glucose results between 100 to 125 mg/dL indicate increased risk for diabetes (prediabetes).Fasting plasma glucose results greater than or equal to 126 mg/dL meet the criteria for diagnosis of diabetes. In the absence of unequivocal hyperglycemia, results should be confirmed by repeat testing. In a patient with classic symptoms of hyperglycemia or hyperglycemic crisis, random plasma glucose results greater than or equal to 200 mg/dL meet the criteria for diagnosis of diabetes.Reference: Standards of Medical Care in Diabetes 2016, [place] [employer]. Diabetes Care. 2016.39(Suppl 1). Performed By: #### 2 4323-8, 2776-02, ####[facility] LABCLIA [id number] [address] [address] [place] Potassium [Moles/Vol] 4.9 mmol/L Normal 3.7-5.1 [facility] Comment on above: Order Comment: Speci men Type: BLOOD SPECIMENOrdering Facility: [facility] Address: [address] [place] [address] Performed By: #### 2 4323-8, 2776-02, ####[facility] LABCLIA [id number] [address] [address] [place] Protein [Mass/Vol] 4.5 g/dL Low 6.3-8.0 [facility] Comment on above: Order Comment: Speci men Type: BLOOD SPECIMENOrdering Facility: [facility] Address: [address] [place] [address] Performed By: #### 2 4323-8, 2776-02, ####[facility] LABCLIA [id number] [address] [address] [place] Sodium [Moles/Vol] 134 mmol/L Low 136-144 [facility] Comment on above: Order Comment: Speci men Type: BLOOD SPECIMENOrdering Facility: [facility] Address: [address] [place] [address] Performed By: #### 2 4323-8, 2776-02, ####[facility] LABCLIA [id number] [address] [address] [place] Urea nitrogen [Mass/Vol] 20 mg/dL Normal 9-24 [facility] Comment on above: Order Comment: Speci men Type: BLOOD SPECIMENOrdering Facility: [facility] Address: [address] [place] [address] Performed By: #### 2 4323-8, 27708-08, ####[facility] LABCLIA [id number] [address] [address] [place] ECG COMPLETEon 10-25-2024 ECG COMPLETE Normal [facility] Magnesium SerPl-mCncon 10-25 Magnesium [Mass/Vol] 2.1 mg/dL Normal 1.7-2.3 [facility] Comment on above: Order Comment: Speci men Type: BLOOD SPECIMENOrdering Facility: [facility] Address: [address] [place] [id number] Performed By: #### 2 4323-8, 27708-08, ####[facility] LABIA [id number] [place] [id number] [place] NURSING PROGon 10-25-2024 NURSING PROG Normal [facility] NURSING PROG Normal [facility] NURSING PROG Normal [facility] Phosphate SerPl-ncon 10-25 Phosphate [Mass/Vol] 2.8 mg/dL Normal 2.7-4.8 [facility] Comment on above: Order Comment: Speci men Type: BLOOD SPECIMENOrdering Facility: [facility] Address: [address] [place] [address] Performed By: #### 2 4323-8, 27708-08, ####[facility] LABIA [id number] [address] [address] [place] THERAPY NTon 10-25-2024 THERAPY NT Normal [facility] THERAPY NT Normal [facility] XR CHEST 1V FRONTAL PORTon 0 10-25-2024 XR CHEST 1V FRONTAL PORT Normal [facility] XR CHEST 1V FRONTAL PORT Normal [facility] ARTERIAL BLOOD GASESon 10-24 Base excess Calc (Bld) [Moles/Vol] 4 mmol/L High 0-2 [facility] Comment on above: Order Comment: Speci men Type: ARTERIAL BLOOD SPECIMENOrdering Facility: [facility] Address: [address] [place] [address] Performed By: #### A LLBG ####[facility] LABIA [id number] [place] [address] [place] Body temperature 99.14 [degF] Normal [facility] Comment on above: Order Comment: Speci men Type: ARTERIAL BLOOD SPECIMENOrdering Facility: [facility] Address: [address] [place] [address] Performed By: #### A LLBG ####[facility] LABIA [id number] [place] [address] [place] Calcium.ionized (Bld) [Mass/Vol] 1.17 mmol/L Normal 1.08-1.30 [facility] Comment on above: Order Comment: Speci men Type: ARTERIAL BLOOD SPECIMENOrdering Facility: [facility] Address: [address] [place] [address] Performed By: #### A LLBG ####[facility] [id number] [place] [address] [place] Calcium.ionized adjusted to pH 7.4 (BldA) [Moles/Vol] 1.16 mmol/L Normal 1.08-1.30 [facility] Comment on above: Order Comment: Speci men Type: ARTERIAL BLOOD SPECIMENOrdering Facility: [facility] Address: [address] [place] [address] Performed By: #### A LLBG ####[facility] [id number] [place] [address] [place] Carboxyhemoglobin (BldA) [Mass fraction] 1.0 % Normal 0.0-2.0 [facility] Comment on above: Order Comment: Speci men Type: ARTERIAL BLOOD SPECIMENOrdering Facility: [facility] Address: [address] [place] [address] Result Comment: Carb oxyhemoglobin Reference Range for Smokers: 2.0-8.0% Performed By: #### A LLBG ####[facility] LABCLIA [id number] [place] [address] [place] CO2 (Bld) [Partial pressure] 49 mm Hg High 36-46 [facility] Comment on above: Order Comment: Speci men Type: ARTERIAL BLOOD SPECIMENOrdering Facility: [facility] Address: [address] [place] [address] Performed By: #### A LLBG ####[facility] LABCLIA [id number] [address] [place] CO2 adjusted to patient's actual temperature (Bld) [Partial pressure] 49 mmHg High 36-46 [facility] Comment on above: Order Comment: Speci men Type: ARTERIAL BLOOD SPECIMENOrdering Facility: [facility] Address: [address] [place] [address] Performed By: #### A LLBG ####[facility] LABCLIA [id number] [place] [address] [place] Glucose [Mass/Vol] 136 mg/dL High 60-105 [facility] Comment on above: Order Comment: Speci men Type: ARTERIAL BLOOD SPECIMENOrdering Facility: [facility] Address: [address] [place] [address] Performed By: #### A LLBG ####[facility] LABCLIA [id number] [place] [id number] [place] HCO3 (Bld) [Moles/Vol] 29 mmol/L High 22-[address] [facility] Comment on above: Order Comment: Speci men Type: ARTERIAL BLOOD SPECIMENOrdering Facility: [facility] Address: [address] [place] [address] Performed By: #### A LLBG ####[facility] LABCLIA [id number] [place] [address] [place] Hematocrit (Bld) [Volume fraction] 22.6 % Low 39.0-51.0 [facility] Comment on above: Order Comment: Speci men Type: ARTERIAL BLOOD SPECIMENOrdering Facility: [facility] Address: [address] [place] [address] Performed By: #### A LLBG ####[facility] LABCLIA [id number] [place] [address] [place] Hemoglobin (Bld) [Mass/Vol] 7.2 g/dL Low 13.0-17.0 [facility] Comment on above: Order Comment: Speci men Type: ARTERIAL BLOOD SPECIMENOrdering Facility: [facility] Address: [address] [place] [address] Performed By: #### A LLBG ####[facility] LABCLIA [id number] [place] [address] [place] Lactate [Moles/Vol] 1.1 mmol/L Normal 0.5-2.2 [facility] Comment on above: Order Comment: Speci men Type: ARTERIAL BLOOD SPECIMENOrdering Facility: [facility] Address: [address] [place] [address] Performed By: #### A LLBG ####[facility] LABCLIA [id number] [place] [address] [place] LITERS 3 Liters/min Normal [facility] Comment on above: Order Comment: Speci men Type: ARTERIAL BLOOD SPECIMENOrdering Facility: [facility] Address: [address] [place] [address] Performed By: #### A LLBG ####[facility] LABCLIA [id number] [place] [address] [place] Methemoglobin (Bld) [Mass fraction] 1.5 % Normal 0.0-1.5 [facility] Comment on above: Order Comment: Speci men Type: ARTERIAL BLOOD SPECIMENOrdering Facility: [facility] Address: [address] [place] [address] Performed By: #### A LLBG ####[facility] LABCLIA [id number] [place] [id number] [place] O2 THERAPY NC = Nasal Cannula Normal [facility] Comment on above: Order Comment: Speci men Type: ARTERIAL BLOOD SPECIMENOrdering Facility: [facility] Address: [address] [place] [address] Performed By: #### A LLBG ####[facility] LABCLIA [id number] [address] [address] [place] Oxygen (Bld) [Partial pressure] 143 mm Hg High 85-95 [facility] Comment on above: Order Comment: Speci men Type: ARTERIAL BLOOD SPECIMENOrdering Facility: [facility] Address: [address] [place] [address] Performed By: #### A LLBG ####[facility] LABCLIA [id number] [place] [id number] [place] Oxygen adjusted to patient's actual temperature (Bld) [Partial pressure] 145 mmHg High 85-95 [facility] Comment on above: Order Comment: Speci men Type: ARTERIAL BLOOD SPECIMENOrdering Facility: [facility] Address: [address] [place] [address] Performed By: #### A LLBG ####[facility] LABCLIA [id number] [place] [id number] [place] Oxyhemoglobin (BldA) [Mass fraction] 97 % Normal 95-98 [facility] Comment on above: Order Comment: Speci men Type: ARTERIAL BLOOD SPECIMENOrdering Facility: [facility] Address: [address] [place] [address] Performed By: #### A LLBG ####[facility] LABCLIA [id number] [address] [address] [place] pH (Bld) 7.39 [pH] Normal 7.35-7.45 [facility] Comment on above: Order Comment: Speci men Type: ARTERIAL BLOOD SPECIMENOrdering Facility: [facility] Address: [address] [place] [address] Performed By: #### A LLBG ####[facility] LABCLIA [id number] [address] [address] [place] pH adjusted to patient's actual temperature (Bld) 7.39 Normal 7.35-7.45 [facility] Comment on above: Order Comment: Speci men Type: ARTERIAL BLOOD SPECIMENOrdering Facility: [facility] Address: [address] [place] [address] Performed By: #### A LLBG ####[facility] LABIA [id number] [place] [address] [place] Potassium [Moles/Vol] 4.7 mmol/L Normal 3.5-5.0 [facility] Comment on above: Order Comment: Speci men Type: ARTERIAL BLOOD SPECIMENOrdering Facility: [facility] Address: [address] [place] [address] Performed By: #### A LLBG ####[facility] LABIA [id number] [place] [address] [place] Sodium [Moles/Vol] 132 mmol/L Low 136-144 [facility] Comment on above: Order Comment: Speci men Type: ARTERIAL BLOOD SPECIMENOrdering Facility: [facility] Address: [address] [place] [address] Performed By: #### A LLBG ####[facility] LABCLIA [id number] [place] [id number] [place] Base excess Calc (Bld) [Moles/Vol] 2 mmol/L Normal 0-2 [facility] Comment on above: Order Comment: Speci men Type: ARTERIAL BLOOD SPECIMENOrdering Facility: [facility] Address: [address] [place] [address] Performed By: #### A LLBG ####[facility] LABCLIA [id number] [place] [address] [place] Body temperature 98.6 [degF] Normal [facility] Comment on above: Order Comment: Speci men Type: ARTERIAL BLOOD SPECIMENOrdering Facility: [facility] Address: [address] [place] [address] Performed By: #### A LLBG ####[facility] LABIA [id number] [place] [address] [place] Calcium.ionized (Bld) [Mass/Vol] 1.17 mmol/L Normal 1.08-1.30 [facility] Comment on above: Order Comment: Speci men Type: ARTERIAL BLOOD SPECIMENOrdering Facility: [facility] Address: [address] [place] [address] Performed By: #### A LLBG ####[facility] [id number] [place] [address] [place] Calcium.ionized adjusted to pH 7.4 (BldA) [Moles/Vol] 1.18 mmol/L Normal 1.08-1.30 [facility] Comment on above: Order Comment: Speci men Type: ARTERIAL BLOOD SPECIMENOrdering Facility: [facility] Address: [address] [place] [address] Performed By: #### A LLBG ####[facility] LABIA [id number] [place] [address] [place] Carboxyhemoglobin (BldA) [Mass fraction] 0.6 % Normal 0.0-2.0 [facility] Comment on above: Order Comment: Speci men Type: ARTERIAL BLOOD SPECIMENOrdering Facility: [facility] Address: [address] [place] [address] Result Comment: Carb oxyhemoglobin Reference Range for Smokers: 2.0-8.0% Performed By: #### A LLBG ####[facility] LABCLIA [id number] [address] [place] [address] [place] CO2 (Bld) [Partial pressure] 42 mm Hg Normal 36-46 [facility] Comment on above: Order Comment: Speci men Type: ARTERIAL BLOOD SPECIMENOrdering Facility: [facility] Address: [address] [place] [address] Performed By: #### A LLBG ####[facility] LABCLIA [id number] [address], [facility]95 [place] Glucose [Mass/Vol] 215 mg/dL High 60-105 [facility] Comment on above: Order Comment: Speci men Type: ARTERIAL BLOOD SPECIMENOrdering Facility: [facility] Address: [address] [place] [address] Performed By: #### A LLBG ####[facility] LABCLIA [id number] [place] [id number] [place] HCO3 (Bld) [Moles/Vol] 26 mmol/L Normal 22-[address] [facility] Comment on above: Order Comment: Speci men Type: ARTERIAL BLOOD SPECIMENOrdering Facility: [facility] Address: [address] [place] [address] Performed By: #### A LLBG ####[facility] LABCLIA [id number] [address], [facility]95 [place] Hematocrit (Bld) [Volume fraction] 25.1 % Low 39.0-51.0 [facility] Comment on above: Order Comment: Speci men Type: ARTERIAL BLOOD SPECIMENOrdering Facility: [facility] Address: [address] [place], [place] [id number] Performed By: #### A LLBG ####[facility] LABCLIA [id number] [place] [id number] [place] Hemoglobin (Bld) [Mass/Vol] 8.1 g/dL Low 13.0-17.0 [facility] Comment on above: Order Comment: Speci men Type: ARTERIAL BLOOD SPECIMENOrdering Facility: [facility] Address: [address] [place] [address] Performed By: #### A LLBG ####[facility] LABCLIA [id number] [address], [facility]95 [place] Lactate [Moles/Vol] 1.9 mmol/L Normal 0.5-2.2 [facility] Comment on above: Order Comment: Speci men Type: ARTERIAL BLOOD SPECIMENOrdering Facility: [facility] Address: [address] [place] [address] Performed By: #### A LLBG ####[facility] LABCLIA [id number] [place] [address] [place] LITERS 4 Liters/min Normal [facility] Comment on above: Order Comment: Speci men Type: ARTERIAL BLOOD SPECIMENOrdering Facility: [facility] Address: [address] [place] [address] Performed By: #### A LLBG ####[facility] LABCLIA [id number] [place] [id number] [place] Methemoglobin (Bld) [Mass fraction] 0.5 % Normal 0.0-1.5 [facility] Comment on above: Order Comment: Speci men Type: ARTERIAL BLOOD SPECIMENOrdering Facility: [facility] Address: [address] [place] [address] Performed By: #### A LLBG ####[facility] LABCLIA [id number] [address], [facility]95 [place] O2 THERAPY NC = Nasal Cannula Normal [facility] Comment on above: Order Comment: Speci men Type: ARTERIAL BLOOD SPECIMENOrdering Facility: [facility] Address: [address] [place] [address] Performed By: #### A LLBG ####[facility] LABCLIA [id number] [place] [id number] [place] Oxygen (Bld) [Partial pressure] 126 mm Hg High 85-95 [facility] Comment on above: Order Comment: Speci men Type: ARTERIAL BLOOD SPECIMENOrdering Facility: [facility] Address: [address] [place] [address] Performed By: #### A LLBG ####[facility] LABCLIA [id number] [address] [address] [place] Oxyhemoglobin (BldA) [Mass fraction] 96 % Normal 95-98 [facility] Comment on above: Order Comment: Speci men Type: ARTERIAL BLOOD SPECIMENOrdering Facility: [facility] Address: [address] [place] [address] Performed By: #### A LLBG ####[facility] LABCLIA [id number] [place] [id number] [place] pH (Bld) 7.42 [pH] Normal 7.35-7.45 [facility] Comment on above: Order Comment: Speci men Type: ARTERIAL BLOOD SPECIMENOrdering Facility: [facility] Address: [address] [place] [address] Performed By: #### A LLBG ####[facility] LABIA [id number] [place] [id number] [place] Potassium [Moles/Vol] 4.4 mmol/L Normal 3.5-5.0 [facility] Comment on above: Order Comment: Speci men Type: ARTERIAL BLOOD SPECIMENOrdering Facility: [facility] Address: [address] [place], [place] [address] Performed By: #### A LLBG ####[facility] LABCLIA [id number] [place] [id number] [place] Sodium [Moles/Vol] 132 mmol/L Low 136-144 [facility] Comment on above: Order Comment: Speci men Type: ARTERIAL BLOOD SPECIMENOrdering Facility: [facility] Address: [address] [place] [address] Performed By: #### A LLBG ####[facility] LABIA [id number] [place] [address] [place] Base excess Calc (Bld) [Moles/Vol] 4 mmol/L High 0-2 [facility] Comment on above: Order Comment: Speci men Type: ARTERIAL BLOOD SPECIMENOrdering Facility: [facility] Address: [address] [place] [address] Performed By: #### A LLBG ####[facility] LABIA [id number] [place] [address] [place] Calcium.ionized adjusted to pH 7.4 (BldA) [Moles/Vol] 1.19 mmol/L Normal 1.08-1.30 [facility] Comment on above: Order Comment: Speci men Type: ARTERIAL BLOOD SPECIMENOrdering Facility: [facility] Address: [address] [place] [address] Performed By: #### A LLBG ####[facility] [id number] [place] [address] [place] Carboxyhemoglobin (BldA) [Mass fraction] <0.0 Low 0.0-2.0 [facility] Comment on above: Order Comment: Speci men Type: ARTERIAL BLOOD SPECIMENOrdering Facility: [facility] Address: [address] [place] [address] Result Comment: Carb oxyhemoglobin Reference Range for Smokers: 2.0-8.0% Performed By: #### A LLBG ####[facility] LABIA [id number] [place] [address] [place] CO2 (Bld) [Partial pressure] 45 mm Hg Normal 36-46 [facility] Comment on above: Order Comment: Speci men Type: ARTERIAL BLOOD SPECIMENOrdering Facility: [facility] Address: [address] [place] [address] Performed By: #### A LLBG ####[facility] LABIA [id number] [address] [place] [address] [place] CO2 adjusted to patient's actual temperature (Bld) [Partial pressure] 44 mmHg Normal 36-46 [facility] Comment on above: Order Comment: Speci men Type: ARTERIAL BLOOD SPECIMENOrdering Facility: [facility] Address: [address] [place] [address] Performed By: #### A LLBG ####[facility] LABCLIA [id number] [facility] [address] [place] [address] [place] Glucose [Mass/Vol] 264 mg/dL High 60-105 [facility] Comment on above: Order Comment: Speci men Type: ARTERIAL BLOOD SPECIMENOrdering Facility: [facility] Address: [address] [place] [address] Performed By: #### A LLBG ####[facility] LABCLIA [id number] [facility] [address], [facility] [place] Hematocrit (Bld) [Volume fraction] 24.8 % Low 39.0-51.0 [facility] Comment on above: Order Comment: Speci men Type: ARTERIAL BLOOD SPECIMENOrdering Facility: [facility] Address: [address] [place] [address] Performed By: #### A LLBG ####[facility] LABCLIA [id number] [facility] [address] [place] [address] [place] Hemoglobin (Bld) [Mass/Vol] 8.0 g/dL Low 13.0-17.0 [facility] Comment on above: Order Comment: Speci men Type: ARTERIAL BLOOD SPECIMENOrdering Facility: [facility] Address: [address] [place] [address] Performed By: #### A LLBG ####[facility] LABCLIA [id number] [facility] [address] [place] [address] [place] Methemoglobin (Bld) [Mass fraction] 1.3 % Normal 0.0-1.5 [facility] Comment on above: Order Comment: Speci men Type: ARTERIAL BLOOD SPECIMENOrdering Facility: [facility] Address: [address] [place], [place] [address] Performed By: #### A LLBG ####[facility] LABCLIA [id number] [address] [address] [place] Oxygen (Bld) [Partial pressure] 129 mm Hg High 85-95 [facility] Comment on above: Order Comment: Speci men Type: ARTERIAL BLOOD SPECIMENOrdering Facility: [facility] Address: [address] [place] [address] Performed By: #### A LLBG ####[facility] LABCLIA [id number] [place] [id number] [place] Oxygen adjusted to patient's actual temperature (Bld) [Partial pressure] 127 mmHg High 85-95 [facility] Comment on above: Order Comment: Speci men Type: ARTERIAL BLOOD SPECIMENOrdering Facility: [facility] Address: [address] [place] [address] Performed By: #### A LLBG ####[facility] LABCLIA [id number] [place] [address] [place] Oxyhemoglobin (BldA) [Mass fraction] 96 % Normal 95-98 [facility] Comment on above: Order Comment: Speci men Type: ARTERIAL BLOOD SPECIMENOrdering Facility: [facility] Address: [address] [place] [address] Performed By: #### A LLBG ####[facility] LABCLIA [id number] [address] [address] [place] pH (Bld) 7.42 [pH] Normal 7.35-7.45 [facility] Comment on above: Order Comment: Speci men Type: ARTERIAL BLOOD SPECIMENOrdering Facility: [facility] Address: [address] [place], [place] [address] Performed By: #### A LLBG ####[facility] LABCLIA [id number] [place] [address] [place] pH adjusted to patient's actual temperature (Bld) 7.42 Normal 7.35-7.45 [facility] Comment on above: Order Comment: Speci men Type: ARTERIAL BLOOD SPECIMENOrdering Facility: [facility] Address: [address] [place] [address] Performed By: #### A LLBG ####[facility] LABIA [id number] [place] [address] [place] Potassium [Moles/Vol] 4.5 mmol/L Normal 3.5-5.0 [facility] Comment on above: Order Comment: Speci men Type: ARTERIAL BLOOD SPECIMENOrdering Facility: [facility] Address: [address] [place] [address] Performed By: #### A LLBG ####[facility] LABIA [id number] [place] [address] [place] Sodium [Moles/Vol] 132 mmol/L Low 136-144 [facility] Comment on above: Order Comment: Speci men Type: ARTERIAL BLOOD SPECIMENOrdering Facility: [facility] Address: [address] [place] [address] Performed By: #### A LLBG ####[facility] LABIA [id number] [place] [address] [place] Albumin Fld-[facility] 5 Albumin (Body fld) [Mass/Vol] 0.7 g/dL Normal See Comment [facility] Comment on above: Order Comment: Speci men Type: SPECIMEN FROM PLEURA OBTAINED BY THORACENTESISOrdering Facility: [facility] Address: [address] [place] [address] Result Comment: Body Fluid Albumin may be used in classifying ascitic fluid into high-gradient or low-gradient fluids as determined by the serum-ascites albumin gradient, which is calculated as (serum albumin) - (ascites albumin).The serum and fluid specimens should be drawn with a minimal intervening time interval to appropriately analyze the gradient.Gradients greater than or equal to 1.1 g/dL are considered high, which reflects a high hydrostatic pressure, commonly caused by: cirrhosis or other processes generating portal hypertension.In samples where gradients are less than 1.1 g/dL, ascites generated from conditions without portal hypertension should be considered.Reference:1. CLSI. Analysis of Body Fluids in Clinical Chemistry Approved Guideline. CLSI document C49A. ANDREY Bright: Clinical Laboratory Standards [place]: 2007.2. Rose FLEMING. Serum to ascites albumin gradient. UpToDate. 2015. Accessed on May 22, 2015. Performed By: #### 2 881-1, 40882-7, 2529-6, 1747-5 ####[facility] LABCLIA [id number] [place] [address] [place] Albumin SerPl-mCncon 16-2 025 Albumin [Mass/Vol] 2.8 g/dL Low 3.9-4.9 [facility] Comment on above: Order Comment: Speci men Type: BLOOD SPECIMENOrdering Facility: [facility] Address: [address] [place] [address] Performed By: #### 1 751-7, 2885-2, 2093-3 ####[facility] LABCLIA [id number] [place] [address] [place] BODY FLUID CELL COUNTon - Clarity (Unsp spec) Not Indicated Normal Clear [facility] Comment on above: Order Comment: Speci men Type: SPECIMEN FROM PLEURA OBTAINED BY THORACENTESISOrdering Facility: [facility] Address: [address] [place] [address] Performed By: #### C CBF, [id number] ####[facility] LABCLIA [id number] [place] [address] [place] Color (Body fld) Not Indicated Normal [facility] Comment on above: Order Comment: Speci men Type: SPECIMEN FROM PLEURA OBTAINED BY THORACENTESISOrdering Facility: [facility] Address: [address] [place] [address] Performed By: #### C CBF, [id number] ####[facility] LABCLIA [id number] [facility] [address] [place] RBC Manual cnt (Body fld) [#/Vol] <2000 Normal <2000 [facility] Comment on above: Order Comment: Speci men Type: SPECIMEN FROM PLEURA OBTAINED BY THORACENTESISOrdering Facility: [facility] Address: [address] [place] [address] Performed By: #### C CBF, [id number] ####[facility] LABCLIA [id number] [facility] [place] [address] [place] Specimen source Nom (Body fld) Pleural Cavity, Right Normal [facility] Comment on above: Order Comment: Speci men Type: SPECIMEN FROM PLEURA OBTAINED BY THORACENTESISOrdering Facility: [facility] Address: [address] [place] [address] Performed By: #### C CBF, [id number] ####[facility] LABCLIA [id number] [facility] [address] [place] WBC Manual cnt (Body fld) [#/Vol] 28 /uL Normal <1000 [facility] Comment on above: Order Comment: Speci men Type: SPECIMEN FROM PLEURA OBTAINED BY THORACENTESISOrdering Facility: [facility] Address: [address] [place] [address] Performed By: #### C CBF, [id number] ####[facility] LABCLIA [id number] [facility] [place] [address] [place] Bacteria Fld Culton 10-25-19 25 Bacteria identified Cx Nom (Body fld) CULTURE, BODY FLD: No growth GRAM STAIN: No organisms seen No Polymorphonuclear Leukocytes Gram stain performed on cytospun specimen. Gram stain from primary specimen Normal [facility] Comment on above: Performed By: #### 6 11-4 ####[facility] LABCLIA [id number] [address] [address] [place] Basic metabolic 2000 panelon 10-24-2024 Anion gap [Moles/Vol] 7 mmol/L Low 8-15 [facility] Comment on above: Order Comment: Speci men Type: BLOOD SPECIMENOrdering Facility: [facility] Address: [address] [place], [place] [address] Performed By: #### 2 4321-2, 12792-5 ####[facility] LABCLIA [id number] [address] [address] [place] Calcium [Mass/Vol] 8.1 mg/dL Low 8.5-10.2 [facility] Comment on above: Order Comment: Speci men Type: BLOOD SPECIMENOrdering Facility: [facility] Address: [address] [place] [address] Performed By: #### 2 4321-2, 32367-1 ####[facility] LABCLIA [id number] [place] [address] [place] Chloride [Moles/Vol] 100 mmol/L Normal 98-107 [facility] Comment on above: Order Comment: Speci men Type: BLOOD SPECIMENOrdering Facility: [facility] Address: [address] [place], [place] [address] Performed By: #### 2 4321-2, 47156-5 ####[facility] LABCLIA [id number] [place] [address] [place] CO2 [Moles/Vol] 27 mmol/L Normal 22-30 [facility] Comment on above: Order Comment: Speci men Type: BLOOD SPECIMENOrdering Facility: [facility] Address: [address] [place], [place] [address] Performed By: #### 2 4321-2, 01696-2 ####[facility] LABCLIA [id number] [address] [address] [place] Creatinine [Mass/Vol] 1.34 mg/dL High 0.73-1.22 [facility] Comment on above: Order Comment: Gini nowak Type: BLOOD SPECIMENOrdering Facility: [facility] Address: [address] [place] [address] Performed By: #### 2 4321-2, 22824-2 ####[facility] LABCLIA [id number] [place] [address] [place] eGFRcr SerPlBld CKD-EPI 2020 60 mL/min/1.73m??? Normal >=60 [facility] Comment on above: Order Comment: Gini nowak Type: BLOOD SPECIMENOrdering Facility: [facility] Address: [address] [place] [address] Result Comment: Gurwinder mated Glomerular Filtration Rate [...] reflect actual GFR. Performed By: #### 2 4321-2, 16396-8 ####[facility] LABCLIA [id number] [place] [address] [place] Glucose [Mass/Vol] 270 mg/dL High 74-99 [facility] Comment on above: Order Comment: Gini nowak Type: BLOOD SPECIMENOrdering Facility: [facility] Address: [address] [place] [address] Result Comment: The [place] Diabetes Association (ADA) provides guidance for cutoff values for fasting glucose and random glucose. The ADA defines fasting as no caloric intake for at least 8 hours. Fasting plasma glucose results between 100 to 125 mg/dL indicate increased risk for diabetes (prediabetes).Fasting plasma glucose results greater than or equal to 126 mg/dL meet the criteria for diagnosis of diabetes. In the absence of unequivocal hyperglycemia, results should be confirmed by repeat testing. In a patient with classic symptoms of hyperglycemia or hyperglycemic crisis, random plasma glucose results greater than or equal to 200 mg/dL meet the criteria for diagnosis of diabetes.Reference: Standards of Medical Care in Diabetes 2016, [place] [employer] Association. Diabetes Care. 2016.39(Suppl 1). Performed By: #### 2 4321-2, 69468-5 ####[facility] LABIA [id number] [address] [address] [place] Potassium [Moles/Vol] 4.7 mmol/L Normal 3.7-5.1 [facility] Comment on above: Order Comment: Speci men Type: BLOOD SPECIMENOrdering Facility: [facility] Address: [address] [place] [address] Performed By: #### 2 4321-2, 03319-8 ####[facility] [id number] [place] [address] [place] Sodium [Moles/Vol] 134 mmol/L Low 136-144 [facility] Comment on above: Order Comment: Speci men Type: BLOOD SPECIMENOrdering Facility: [facility] Address: [address] [place] [address] Performed By: #### 2 4321-2, 12137-6 ####[facility] [id number] [place] [address] [place] Urea nitrogen [Mass/Vol] 20 mg/dL Normal 9-24 [facility] Comment on above: Order Comment: Speci men Type: BLOOD SPECIMENOrdering Facility: [facility] Address: [address] [place] [address] Performed By: #### 2 4321-2, 77020-5 ####[facility] [id number] [place] [id number] [place] CBC W Auto Differential pane l (Bld)on 10-24-2024 Basophils (Bld) [#/Vol] 0.05 10*3/uL Normal <0.11 [facility] Comment on above: Order Comment: Speci men Type: BLOOD SPECIMENOrdering Facility: [facility] Address: [address] [place] [address] Performed By: #### 5 7021-8 ####[facility] LABCLIA [id number] [facility] [address], [place] [address] [place] Basophils/100 WBC (Bld) 0.7 % Normal [facility] Comment on above: Order Comment: Speci men Type: BLOOD SPECIMENOrdering Facility: [facility] Address: [address] [place] [address] Performed By: #### 5 7021-8 ####[facility] LABCLIA [id number] [place] [address] [place] Differential cell count method Nom (Bld) Auto Normal [facility] Comment on above: Order Comment: Speci men Type: BLOOD SPECIMENOrdering Facility: [facility] Address: [address] [place] [address] Performed By: #### 5 7021-8 ####[facility] LABCLIA [id number] [address] [place] Eosinophils (Bld) [#/Vol] 0.08 10*3/uL Normal <0.46 [facility] Comment on above: Order Comment: Speci men Type: BLOOD SPECIMENOrdering Facility: [facility] Address: [address] [place] [address] Performed By: #### 5 7021-8 ####[facility] LABCLIA [id number] [address] [place] Eosinophils/100 WBC (Bld) 1.1 % Normal [facility] Comment on above: Order Comment: Speci men Type: BLOOD SPECIMENOrdering Facility: [facility] Address: [address] [place] [address] Performed By: #### 5 7021-8 ####[facility] LABCLIA [id number] [place] [address] [place] Erythrocyte distribution width (RBC) [Ratio] 17.6 % High 11.5-15.0 [facility] Comment on above: Order Comment: Speci men Type: BLOOD SPECIMENOrdering Facility: [facility] Address: [address] [place] [address] Performed By: #### 5 7021-8 ####[facility] LABCLIA [id number] [address] [address] [place] Hematocrit (Bld) [Volume fraction] 23.7 % Low 39.0-51.0 [facility] Comment on above: Order Comment: Speci men Type: BLOOD SPECIMENOrdering Facility: [facility] Address: [address] [place] [address] Performed By: #### 5 7021-8 ####[facility] LABCLIA [id number] [address], [place] [address] [place] Hemoglobin (Bld) [Mass/Vol] 7.7 g/dL Low 13.0-17.0 [facility] Comment on above: Order Comment: Speci men Type: BLOOD SPECIMENOrdering Facility: [facility] Address: [address] [place] [address] Performed By: #### 5 7021-8 ####[facility] LABIA [id number] [place] [address] [place] Immature granulocytes (Bld) [#/Vol] 0.05 10*3/uL Normal <0.10 [facility] Comment on above: Order Comment: Speci men Type: BLOOD SPECIMENOrdering Facility: [facility] Address: [address] [place] [address] Performed By: #### 5 7021-8 ####[facility] LABIA [id number] [place] [address] [place] Immature granulocytes/100 WBC (Bld) 0.7 % Normal [facility] Comment on above: Order Comment: Speci men Type: BLOOD SPECIMENOrdering Facility: [facility] Address: [address] [place] [address] Performed By: #### 5 7021-8 ####[facility] LABCLIA [id number] [place] [address] [place] Lymphocytes (Bld) [#/Vol] 0.71 10*3/uL Low 1.00-4.00 [facility] Comment on above: Order Comment: Speci men Type: BLOOD SPECIMENOrdering Facility: [facility] Address: [address] [place] [address] Performed By: #### 5 7021-8 ####[facility] LABCLIA [id number] [place] [address] [place] Lymphocytes/100 WBC (Bld) 9.5 % Normal [facility] Comment on above: Order Comment: Speci men Type: BLOOD SPECIMENOrdering Facility: [facility] Address: [address] [place] [address] Performed By: #### 5 7021-8 ####[facility] LABIA [id number] [place] [address] [place] MCH (RBC) [Entitic mass] 32.4 pg Normal 26.0-34.0 [facility] Comment on above: Order Comment: Speci men Type: BLOOD SPECIMENOrdering Facility: [facility] Address: [address] [place] [address] Performed By: #### 5 7021-8 ####[facility] LABCLIA [id number] [place] [address] [place] MCHC (RBC) [Mass/Vol] 32.5 g/dL Normal 30.5-36.0 [facility] Comment on above: Order Comment: Speci men Type: BLOOD SPECIMENOrdering Facility: [facility] Address: [address] [place] [address] Performed By: #### 5 7021-8 ####[facility] LABIA [id number] [place] [address] [place] MCV (RBC) [Entitic vol] 99.6 fL Normal 80.0-100.0 [facility] Comment on above: Order Comment: Speci men Type: BLOOD SPECIMENOrdering Facility: [facility] Address: [address] [place] [address] Performed By: #### 5 7021-8 ####[facility] LABCLIA [id number] [place] [address] [place] Monocytes (Bld) [#/Vol] 0.75 10*3/uL Normal <0.87 [facility] Comment on above: Order Comment: Speci men Type: BLOOD SPECIMENOrdering Facility: [facility] Address: [address] [place] [address] Performed By: #### 5 7021-8 ####[facility] LABCLIA [id number] [place] [address] [place] Monocytes/100 WBC (Bld) 10.1 % Normal [facility] Comment on above: Order Comment: Speci men Type: BLOOD SPECIMENOrdering Facility: [facility] Address: [address] [place] [address] Performed By: #### 5 7021-8 ####[facility] LABCLIA [id number] [place] [address] [place] Neutrophils (Bld) [#/Vol] 5.80 10*3/uL Normal 1.45-7.50 [facility] Comment on above: Order Comment: Speci men Type: BLOOD SPECIMENOrdering Facility: [facility] Address: [address] [place] [address] Performed By: #### 5 7021-8 ####[facility] LABCLIA [id number] [place] [address] [place] Neutrophils/100 WBC (Bld) 77.9 % Normal [facility] Comment on above: Order Comment: Speci men Type: BLOOD SPECIMENOrdering Facility: [facility] Address: [address] [place] [address] Performed By: #### 5 7021-8 ####[facility] LABCLIA [id number] [place] [address] [place] Nucleated RBC (Bld) [#/Vol] 10*3/uL Normal <0.01 [facility] Comment on above: Order Comment: Speci men Type: BLOOD SPECIMENOrdering Facility: [facility] Address: [address] [place] [address] Performed By: #### 5 7021-8 ####[facility] LABIA [id number] [place] [address] [place] Nucleated RBC/100 WBC (Bld) [Ratio] 0.0 /100 WBC Normal [facility] Comment on above: Order Comment: Speci men Type: BLOOD SPECIMENOrdering Facility: [facility] Address: [address] [place] [address] Performed By: #### 5 7021-8 ####[facility] LABIA [id number] [place] [address] [place] Platelet mean volume (Bld) [Entitic vol] 11.8 fL Normal 9.0-12.7 [facility] Comment on above: Order Comment: Speci men Type: BLOOD SPECIMENOrdering Facility: [facility] Address: [address] [place] [address] Performed By: #### 5 7021-8 ####[facility] LABCLIA [id number] [place] [address] [place] Platelets (Bld) [#/Vol] 94 10*3/uL Low 150-400 C [facility] Comment on above: Order Comment: Speci men Type: BLOOD SPECIMENOrdering Facility: [facility] Address: [address] [place] [address] Result Comment: No c lot detected.Results checked and verified. Performed By: #### 5 7021-8 ####[facility] LABCLIA [id number] [place] [address] [place] RBC (Bld) [#/Vol] 2.38 10*6/uL Low 4.20-6.00 [facility] Comment on above: Order Comment: Speci men Type: BLOOD SPECIMENOrdering Facility: [facility] Address: [address] [place] [address] Performed By: #### 5 7021-8 ####[facility] LABIA [id number] [place] [address] [place] WBC (Bld) [#/Vol] 7.44 10*3/uL Normal 3.70-11.00 [facility] Comment on above: Order Comment: Speci men Type: BLOOD SPECIMENOrdering Facility: [facility] Address: [address] [place] [address] Performed By: #### 5 7021-8 ####[facility] LABIA [id number] [place] [address] [place] CBC W Ordered Manual Differe ntial panel (Bld)on 10-24-2024 Basophils (Bld) [#/Vol] 0.04 10*3/uL Normal <0.11 [facility] Comment on above: Order Comment: Speci men Type: BLOOD SPECIMENOrdering Facility: [facility] Address: [address] [place] [address] Performed By: #### 5 7782-5, STFREV ####[facility] LABIA [id number] [place] [address] [place] Basophils/100 WBC (Bld) 0.6 % Normal [facility] Comment on above: Order Comment: Speci men Type: BLOOD SPECIMENOrdering Facility: [facility] Address: [address] [place] [address] Performed By: #### 5 7782-5, STFREV ####[facility] LABCLIA [id number] [place] [address] [place] Differential cell count method Nom (Bld) Auto Normal [facility] Comment on above: Order Comment: Speci men Type: BLOOD SPECIMENOrdering Facility: [facility] Address: [address] [place] [address] Performed By: #### 5 7782-5, STFREV ####[facility] LABCLIA [id number] [place] [address] [place] Eosinophils (Bld) [#/Vol] 0.06 10*3/uL Normal <0.46 [facility] Comment on above: Order Comment: Speci men Type: BLOOD SPECIMENOrdering Facility: [facility] Address: [address] [place] [address] Performed By: #### 5 7782-5, STFREV ####[facility] LABCLIA [id number] [place] [address] [place] Eosinophils/100 WBC (Bld) 1.0 % Normal [facility] Comment on above: Order Comment: Speci men Type: BLOOD SPECIMENOrdering Facility: [facility] Address: [address] [place] [address] Performed By: #### 5 7782-5, STFREV ####[facility] LABCLIA [id number] [place] [address] [place] Erythrocyte distribution width (RBC) [Ratio] 17.4 % High 11.5-15.0 [facility] Comment on above: Order Comment: Speci men Type: BLOOD SPECIMENOrdering Facility: [facility] Address: [address] [place] [address] Performed By: #### 5 7782-5, STFREV ####[facility] LABCLIA [id number] [place] [address] [place] Hematocrit (Bld) [Volume fraction] 24.3 % Low 39.0-51.0 [facility] Comment on above: Order Comment: Speci men Type: BLOOD SPECIMENOrdering Facility: [facility] Address: [address] [place] [address] Performed By: #### 5 7782-5, STFRLUZ ####[facility] LABCLIA [id number] [place] [address] [place] Hemoglobin (Bld) [Mass/Vol] 7.9 g/dL Low 13.0-17.0 [facility] Comment on above: Order Comment: Speci men Type: BLOOD SPECIMENOrdering Facility: [facility] Address: [address] [place] [address] Performed By: #### 5 7782-5, STAYANNA ####[facility] LABCLIA [id number] [place] [address] [place] Immature granulocytes (Bld) [#/Vol] 0.03 10*3/uL Normal <0.10 [facility] Comment on above: Order Comment: Speci men Type: BLOOD SPECIMENOrdering Facility: [facility] Address: [address] [place] [address] Performed By: #### 5 7782-5, STFRLUZ ####[facility] LABCLIA [id number] [place] [address] [place] Immature granulocytes/100 WBC (Bld) 0.5 % Normal [facility] Comment on above: Order Comment: Speci men Type: BLOOD SPECIMENOrdering Facility: [facility] Address: [address] [place] [address] Performed By: #### 5 7782-5, STFREV ####[facility] LABCLIA [id number] [place] [address] [place] Lymphocytes (Bld) [#/Vol] 0.90 10*3/uL Low 1.00-4.00 [facility] Comment on above: Order Comment: Speci men Type: BLOOD SPECIMENOrdering Facility: [facility] Address: [address] [place] [address] Performed By: #### 5 7782-5, STFREV ####[facility] LABCLIA [id number] [place] [address] [place] Lymphocytes/100 WBC (Bld) 14.4 % Normal [facility] Comment on above: Order Comment: Speci men Type: BLOOD SPECIMENOrdering Facility: [facility] Address: [address] [place] [address] Performed By: #### 5 7782-5, STFREV ####[facility] LABIA [id number] [place] [address] [place] MCH (RBC) [Entitic mass] 32.5 pg Normal 26.0-34.0 [facility] Comment on above: Order Comment: Speci men Type: BLOOD SPECIMENOrdering Facility: [facility] Address: [address] [place] [address] Performed By: #### 5 7782-5, STFREV ####[facility] LABIA [id number] [place] [address] [place] MCHC (RBC) [Mass/Vol] 32.5 g/dL Normal 30.5-36.0 [facility] Comment on above: Order Comment: Speci men Type: BLOOD SPECIMENOrdering Facility: [facility] Address: [address] [place] [address] Performed By: #### 5 7782-5, STFREV ####[facility] LABIA [id number] [place] [address] [place] MCV (RBC) [Entitic vol] 100.0 fL Normal 80.0-100.0 [facility] Comment on above: Order Comment: Speci men Type: BLOOD SPECIMENOrdering Facility: [facility] Address: [address] [place] [address] Performed By: #### 5 7782-5, STFREV ####[facility] LABCLIA [id number] [address] [place] [address] [place] Monocytes (Bld) [#/Vol] 0.72 10*3/uL Normal <0.87 [facility] Comment on above: Order Comment: Speci men Type: BLOOD SPECIMENOrdering Facility: [facility] Address: [address] [place] [address] Performed By: #### 5 7782-5, STFREV ####[facility] LABCLIA [id number] [place] [address] [place] Monocytes/100 WBC (Bld) 11.6 % Normal [facility] Comment on above: Order Comment: Speci men Type: BLOOD SPECIMENOrdering Facility: [facility] Address: [address] [place] [address] Performed By: #### 5 7782-5, STFREV ####[facility] LABCLIA [id number] [place] [address] [place] Neutrophils (Bld) [#/Vol] 4.48 10*3/uL Normal 1.45-7.50 [facility] Comment on above: Order Comment: Speci men Type: BLOOD SPECIMENOrdering Facility: [facility] Address: [address] [place] [address] Performed By: #### 5 7782-5, STFREV ####[facility] LABCLIA [id number] [place] [address] [place] Neutrophils/100 WBC (Bld) 71.9 % Normal [facility] Comment on above: Order Comment: Speci men Type: BLOOD SPECIMENOrdering Facility: [facility] Address: [address] [place] [address] Performed By: #### 5 7782-5, STFREV ####[facility] LABCLIA [id number] [place] [id number] [place] Nucleated RBC (Bld) [#/Vol] 10*3/uL Normal <0.01 [facility] Comment on above: Order Comment: Speci men Type: BLOOD SPECIMENOrdering Facility: [facility] Address: [address] [place] [address] Performed By: #### 5 7782-5, STFREV ####[facility] LABCLIA [id number] [place] [address] [place] Nucleated RBC/100 WBC (Bld) [Ratio] 0.0 /100 WBC Normal [facility] Comment on above: Order Comment: Speci men Type: BLOOD SPECIMENOrdering Facility: [facility] Address: [address] [place] [address] Performed By: #### 5 7782-5, STFREV ####[facility] LABCLIA [id number] [place] [address] [place] Platelet mean volume (Bld) [Entitic vol] 12.3 fL Normal 9.0-12.7 [facility] Comment on above: Order Comment: Speci men Type: BLOOD SPECIMENOrdering Facility: [facility] Address: [address] [place] [address] Performed By: #### 5 7782-5, STFREV ####[facility] LABCLIA [id number] [place] [address] [place] Platelets (Bld) [#/Vol] 103 10*3/uL Low 150-400 [facility] Comment on above: Order Comment: Speci men Type: BLOOD SPECIMENOrdering Facility: [facility] Address: [address] [place] [address] Performed By: #### 5 7782-5, STFREV ####[facility] LABCLIA [id number] [place] [address] [place] RBC (Bld) [#/Vol] 2.43 10*6/uL Low 4.20-6.00 [facility] Comment on above: Order Comment: Speci men Type: BLOOD SPECIMENOrdering Facility: [facility] Address: [address] [place] [address] Performed By: #### 5 7782-5, STFREV ####[facility] LABIA [id number] [place] [address] [place] WBC (Bld) [#/Vol] 6.23 10*3/uL Normal 3.70-11.00 [facility] Comment on above: Order Comment: Speci men Type: BLOOD SPECIMENOrdering Facility: [facility] Address: [address] [place] [address] Performed By: #### 5 7782-5, STFREV ####[facility] LABIA [id number] [place] [address] [place] CBC panel Auto (Bld)on 10-24 Erythrocyte distribution width (RBC) [Ratio] 17.2 % High 11.5-15.0 [facility] Comment on above: Order Comment: Speci men Type: BLOOD SPECIMENOrdering Facility: [facility] Address: [address] [place] [address] Performed By: #### 5 8410-2 ####[facility] LABIA [id number] [place] [address] [place] Hematocrit (Bld) [Volume fraction] 24.8 % Low 39.0-51.0 [facility] Comment on above: Order Comment: Speci men Type: BLOOD SPECIMENOrdering Facility: [facility] Address: [address] [place] [address] Performed By: #### 5 8410-2 ####[facility] LABIA [id number] [place] [address] [place] Hemoglobin (Bld) [Mass/Vol] 7.8 g/dL Low 13.0-17.0 [facility] Comment on above: Order Comment: Speci men Type: BLOOD SPECIMENOrdering Facility: [facility] Address: [address] [place] [address] Performed By: #### 5 8410-2 ####[facility] LABIA [id number] [place] [address] [place] MCH (RBC) [Entitic mass] 31.5 pg Normal 26.0-34.0 [facility] Comment on above: Order Comment: Speci men Type: BLOOD SPECIMENOrdering Facility: [facility] Address: [address] [place] [address] Performed By: #### 5 8410-2 ####[facility] LABIA [id number] [place] [address] [place] MCHC (RBC) [Mass/Vol] 31.5 g/dL Normal 30.5-36.0 [facility] Comment on above: Order Comment: Speci men Type: BLOOD SPECIMENOrdering Facility: [facility] Address: [address] [place] [address] Performed By: #### 5 8410-2 ####[facility] LABIA [id number] [place] [address] [place] MCV (RBC) [Entitic vol] 100.0 fL Normal 80.0-100.0 C [facility] Comment on above: Order Comment: Speci men Type: BLOOD SPECIMENOrdering Facility: [facility] Address: [address] [place] [address] Performed By: #### 5 8410-2 ####[facility] LABIA [id number] [address] [place] Nucleated RBC (Bld) [#/Vol] 10*3/uL Normal <0.01 [facility] Comment on above: Order Comment: Speci men Type: BLOOD SPECIMENOrdering Facility: [facility] Address: [address] [place] [address] Performed By: #### 5 8410-2 ####[facility] LABIA [id number] [id number], [place] [address] [place] Platelet mean volume (Bld) [Entitic vol] 11.8 fL Normal 9.0-12.7 [facility] Comment on above: Order Comment: Speci men Type: BLOOD SPECIMENOrdering Facility: [facility] Address: [address] [place] [address] Performed By: #### 5 8410-2 ####[facility] LABIA [id number] [place] [address] [place] Platelets (Bld) [#/Vol] 95 10*3/uL Low 150-400 C [facility] Comment on above: Order Comment: Speci men Type: BLOOD SPECIMENOrdering Facility: [facility] Address: [address] [place] [address] Result Comment: Resu lts checked and verified.No clot detected. Performed By: #### 5 8410-2 ####[facility] LABIA [id number] [place] [address] [place] RBC (Bld) [#/Vol] 2.48 10*6/uL Low 4.20-6.00 [facility] Comment on above: Order Comment: Speci men Type: BLOOD SPECIMENOrdering Facility: [facility] Address: [address] [place] [address] Performed By: #### 5 8410-2 ####[facility] LABIA [id number] [place] [address] [place] WBC (Bld) [#/Vol] 8.00 10*3/uL Normal 3.70-11.00 [facility] Comment on above: Order Comment: Speci men Type: BLOOD SPECIMENOrdering Facility: [facility] Address: [address] [place] [address] Performed By: #### 5 8410-2 ####[facility] LABIA [id number] [place] [id number] [place] CYSTATIN Con 10-24-2024 Cystatin C [Mass/Vol] 1.48 mg/L High 0.61-0.95 [facility] Comment on above: Order Comment: Speci men Type: BLOOD SPECIMENOrdering Facility: [facility] Address: [address] [place] [address] Performed By: #### C YSTC, 2532-0 ####[facility] LABCLIA [id number] [place] [address] [place] CYSTATIN C EGFR 46 mL/min/1.73m??? Low >=60 C [facility] Comment on above: Order Comment: Speci men Type: BLOOD SPECIMENOrdering Facility: [facility] Address: [address] [place] [address] Result Comment: Gurwinder mated Glomerular Filtration Rate (eGFR) is calculated using the 2012 CKD-EPI cystatin C equation. This equation utilizes serum cystatin C, sex, and age as parameters. The cystatin C assay has traceable calibration to the ERM-DA471/[facility] reference material. Refer to KDIGO guidelines for clinical interpretation. In patients with unstable renal function, e.g. those with acute kidney injury, the eGFR may not accurately reflect actual GFR. Performed By: #### C YSTC, 2-0 ####[facility] LABCLIA [id number] [place] [address] [place] CYTOLOGY NON-GYNon 5 AP DISCLAIMER Normal [facility] Comment on above: Order Comment: Speci men Type: SPECIMEN FROM PLEURA OBTAINED BY THORACENTESISOrdering Facility: [facility] Address: [address] [place] [address] Result Comment: Etienne vera Developed Test (LDT) Disclaimer:Performance characteristics of immunohistochemical, immunofluorescent, and chromogenic in-situ hybridization tests have been determined by the performing laboratory within the [facility] Department of Pathology and Laboratory Medicine ([facility], [facility], [facility], [facility], [facility], [facility], or [facility]) in a manner consistent with CLIA requirements. One or more of these tests may not have been cleared or approved by the FDA. The [facility] Department of Pathology and Laboratory Medicine is regulated under CLIA as qualified to perform high-complexity testing. These tests are used for clinical purposes. These should not be regarded as investigational or for research. Positive and negative controls stain appropriately. Performed By: #### C YTONON ####[facility] LABCLIA [id number] [place] [address] [place] CASE REPORT Normal [facility] Comment on above: Order Comment: Speci men Type: SPECIMEN FROM PLEURA OBTAINED BY THORACENTESISOrdering Facility: [facility] Address: [address] [place] [address] Result Comment: [facility] Cytology Report Case: [id number] Provider: Piper Chin MD Collected: 10/24/2024 10:18 AMOrdering Location: [id number] Received: 10/24/2024 03:20 PMPathologist: Tee Barroso MDSpecimen: Pleural Cavity, Right Performed By: #### C YTONON ####[facility] LABCLIA [id number] [place] [address] [place] CLINICAL HISTORY Heart Failure with Bilateral Pleural effusions Normal [facility] Comment on above: Order Comment: Speci men Type: SPECIMEN FROM PLEURA OBTAINED BY THORACENTESISOrdering Facility: [facility] Address: [address] [place] [address] Performed By: #### C YTONON ####[facility] LABIA [id number] [address] [place] FINAL DIAGNOSIS Normal [facility] Comment on above: Order Comment: Speci men Type: SPECIMEN FROM PLEURA OBTAINED BY THORACENTESISOrdering Facility: [facility] Address: [address] [place] [address] Result Comment: A - Pleural Cavity, Right, Fluid. Negative for malignant cells. Acute and chronic inflammation.The following cell blocks were associated with this case:A1 Cell Block, Alcohol Fixed at 1406 EDT Performed By: #### C YTONON ####[facility] LABCLIA [id number] [place] [address] [place] FINAL PERFORMING LAB Normal [facility] Comment on above: Order Comment: Speci men Type: SPECIMEN FROM PLEURA OBTAINED BY THORACENTESISOrdering Facility: [facility] Address: [address] [place] [address] Result Comment: Tech nical component, footwear sales coordinator screening performed at: [facility], [address] [place], [place] [id number] CLIA: [id number] interpretation performed at: [facility], [address] [place] [address] CLIA# [id number] Director: Jaya Jones MD Performed By: #### C YTONON ####[facility] LABCLIA [id number] [address] STATES OF [facility] GROSS DESCRIPTION Normal [facility] Comment on above: Order Comment: Speci men Type: SPECIMEN FROM PLEURA OBTAINED BY THORACENTESISOrdering Facility: [facility] Address: [address] [place] [address] Result Comment: A. P leural Cavity, Right25 cc clear yellow fluid . ThinPrep and Cell Block prepared. Performed By: #### C YTONON ####[facility] LABCLIA [id number] [place] [address] [place] Cholest Fld-mCncon 5 Cholesterol (Body fld) [Mass/Vol] 14 mg/dL Normal See Comment [facility] Comment on above: Order Comment: Speci men Type: SPECIMEN FROM PLEURA OBTAINED BY THORACENTESISOrdering Facility: [facility] Address: [address] [place] [address] Result Comment: SYNO VIAL FLUIDS:Synovial fluid cholesterol measurement may be useful in classifying various joint disorders. The reference range for adult synovial fluid cholesterol measurement is less than or equal to 65% of the concurrent plasma cholesterol measurement.SEROUS FLUIDS:Serous fluid cholesterol measurement may be useful in determining the etiology of the effusion. A serous fluid cholesterol measurement >200 mg/dL is suggestive of a pseudochylous effusion. A serous fluid cholesterol measurement greater than or equal to 45 mg/dL is suggestive of an exudate. A serous fluid cholesterol measurement <45 mg/dL is suggestive of a transudate.Reference:1. CLSI. Analysis of Body Fluids in Clinical Chemistry; Approved Guideline. CLSI document C49-A. ANDREY Bright: Clinical Laboratory Standards [place]; 2007. Performed By: #### 2 881-1, 97315-3, 2529-6, 1747-5 ####[facility] LABCLIA [id number] [place] [address] [place] Cholest SerPl-mCncon 025 Cholesterol [Mass/Vol] 107 mg/dL Normal <[address] [facility] Comment on above: Order Comment: Gini nowak Type: BLOOD SPECIMENOrdering Facility: [facility] Address: [address] [place] [address] Result Comment: <200 mg/dL, Desirable 200-239 mg/dL, Borderline high>239 mg/dL, HighReference:1. National Cholesterol Education Program ATP III Guideline At-A-Glance Quick Desk Reference: National Heart, Lung, and Blood [place]. National Institutes of Health. 2001: NIH Publication No. 01-3305. Performed By: #### 1 751-7, 2885-2, 2093-3 ####[facility] LABCLIA [id number] [place] [address] [place] Fact Xa PPP-aCncon 5 Coagulation factor X activated act Coag Qn (PPP) 0.28 IU/mL High <0.10 [facility] Comment on above: Order Comment: Gini nowak Type: BLOOD SPECIMENOrdering Facility: [facility] Address: [address] [place] [address] Result Comment: The recommended therapeutic range for treatment of venous and arterial thrombosis with intravenous unfractionated heparin is an anti Xa activity level of 0.3 to 0.7 IU/mL. In patients with concomitant therapy with thrombolytic agents and/or platelet glycoprotein IIb/IIIa antagonists, the recommended therapeutic range is an anti Xa activity level of 0.2 to 0.5 IU/mL. Performed By: #### 3 4528-0, 3217-7 ####[facility] LABCLIA [id number] [place] [address] [place] Coagulation factor X activated act Coag Qn (PPP) <0.10 Normal <0.10 [facility] Comment on above: Order Comment: Gini nowak Type: BLOOD SPECIMENOrdering Facility: [facility] Address: [address] [place] [address] Result Comment: The recommended therapeutic range for treatment of venous and arterial thrombosis with intravenous unfractionated heparin is an anti Xa activity level of 0.3 to 0.7 IU/mL. In patients with concomitant therapy with thrombolytic agents and/or platelet glycoprotein IIb/IIIa antagonists, the recommended therapeutic range is an anti Xa activity level of 0.2 to 0.5 IU/mL. Performed By: #### 3 217-7, 47847-6 ####[facility] [id number] [place] [address] [place] Gas + CO Pnl BldVon 10-25-19 25 Body temperature 98.06 [degF] Normal [facility] Comment on above: Order Comment: Gini nowak Type: VENOUS BLOOD SPECIMENOrdering Facility: [facility] Address: [address] [place] [address] Performed By: #### 2 4344-4 ####[facility] LABIA [id number] [address] [place] Order Comment: Gini nowak Type: ARTERIAL BLOOD SPECIMENOrdering Facility: [facility] Address: [address] [place] [address] Performed By: #### A LLBG ####[facility] LABIA [id number] [address] [id number] [address] [place] Calcium.ionized (Bld) [Mass/Vol] 1.18 mmol/L Normal 1.08-1.30 [facility] Comment on above: Order Comment: Speci men Type: VENOUS BLOOD SPECIMENOrdering Facility: [facility] Address: [address] [place] [address] Performed By: #### 2 4344-4 ####[facility] LABCLIA [id number] [address] [place] Order Comment: Speci men Type: ARTERIAL BLOOD SPECIMENOrdering Facility: [facility] Address: [address] [place] [address] Performed By: #### A LLBG ####[facility] LABCLIA [id number] [place] [address] [place] HCO3 (Bld) [Moles/Vol] 29 mmol/L High 22-[address] [facility] Comment on above: Order Comment: Speci men Type: VENOUS BLOOD SPECIMENOrdering Facility: [facility] Address: [address] [place] [address] Performed By: #### 2 4344-4 ####[facility] LABCLIA [id number] [address] Order Comment: Speci men Type: ARTERIAL BLOOD SPECIMENOrdering Facility: [facility] Address: [address] [place] [address] Performed By: #### A LLBG ####[facility] LABCLIA [id number] [place] [address] [place] Lactate [Moles/Vol] 0.6 mmol/L Normal 0.5-2.2 [facility] Comment on above: Order Comment: Speci men Type: VENOUS BLOOD SPECIMENOrdering Facility: [facility] Address: [address] [place] [address] Performed By: #### 2 4344-4 ####[facility] LABCLIA [id number] [address] [address] [place] Order Comment: Speci men Type: ARTERIAL BLOOD SPECIMENOrdering Facility: [facility] Address: [address] [place] [id number] Performed By: #### A LLBG ####[facility] LABCLIA [id number] [address] [place] [address] [place] LITERS 6 Liters/min Normal [facility] Comment on above: Order Comment: Speci men Type: VENOUS BLOOD SPECIMENOrdering Facility: [facility] Address: [address] [place] [id number] Performed By: #### 2 4344-4 ####[facility] LABCLIA [id number] [address], [facility] [place] Order Comment: Speci men Type: ARTERIAL BLOOD SPECIMENOrdering Facility: [facility] Address: [address] [place] [address] Performed By: #### A LLBG ####[facility] LABCLIA [id number] [place] [id number] [place] O2 THERAPY NC = Nasal Cannula Normal [facility] Comment on above: Order Comment: Speci men Type: VENOUS BLOOD SPECIMENOrdering Facility: [facility] Address: [address] [place], [place] [address] Performed By: #### 2 4344-4 ####[facility] LABCLIA [id number] [place] [id number] [place] Order Comment: Speci men Type: ARTERIAL BLOOD SPECIMENOrdering Facility: [facility] Address: [address] [place] [id number] Performed By: #### A LLBG ####[facility] LABCLIA [id number] [address] [address] [place] Gas and Carbon monoxide pane l (BldV)on 10-24-2024 Base excess Calc (BldV) [Moles/Vol] 5 mmol/L High 0-2 [facility] Comment on above: Order Comment: Speci men Type: VENOUS BLOOD SPECIMENOrdering Facility: [facility] Address: [address] [place] [address] Performed By: #### 2 4344-4 ####[facility] LABIA [id number] [place] [address] [place] [place] Body temperature 98.6 [degF] Normal [facility] Comment on above: Order Comment: Speci men Type: VENOUS BLOOD SPECIMENOrdering Facility: [facility] Address: [address] [place] [address] Performed By: #### 2 4344-4 ####[facility] [id number] [place] [address] [place] Calcium.ionized (Bld) [Mass/Vol] 1.21 mmol/L Normal 1.08-1.30 [facility] Comment on above: Order Comment: Speci men Type: VENOUS BLOOD SPECIMENOrdering Facility: [facility] Address: [address] [place] [address] Performed By: #### 2 4344-4 ####[facility] [id number] [place] [address] [place] Calcium.ionized adjusted to pH 7.4 (BldA) [Moles/Vol] 1.18 mmol/L Normal 1.08-1.30 [facility] Comment on above: Order Comment: Speci men Type: VENOUS BLOOD SPECIMENOrdering Facility: [facility] Address: [address] [place] [address] Performed By: #### 2 4344-4 ####[facility] [id number] [place] [address] [place] Carboxyhemoglobin (BldV) [Mass fraction] 1.0 % Normal 0.0-2.0 [facility] Comment on above: Order Comment: Speci men Type: VENOUS BLOOD SPECIMENOrdering Facility: [facility] Address: [address] [place] [address] Result Comment: Carb oxyhemoglobin Reference Range for Smokers: 2.0-8.0% Performed By: #### 2 4344-4 ####[facility] LABCLIA [id number] [address] [address] [place] CO2 (BldV) [Partial pressure] 56 mm[Hg] High 42-55 [facility] Comment on above: Order Comment: Speci men Type: VENOUS BLOOD SPECIMENOrdering Facility: [facility] Address: [address] [place] [address] Performed By: #### 2 4344-4 ####[facility]CL[facility] [id number] [place] [address] [place] Glucose [Mass/Vol] 119 mg/dL High 60-105 [facility] Comment on above: Order Comment: Speci men Type: VENOUS BLOOD SPECIMENOrdering Facility: [facility] Address: [address] [place] [address] Performed By: #### 2 4344-4 ####[facility]CL[facility] [id number] [place] [address] [place] HCO3 (Bld) [Moles/Vol] 31 mmol/L High 24-[address] [facility] Comment on above: Order Comment: Speci men Type: VENOUS BLOOD SPECIMENOrdering Facility: [facility] Address: [address] [place] [address] Performed By: #### 2 4344-4 ####[facility] LABCLIA [id number] [place] [id number] [place] Hematocrit (Bld) [Volume fraction] 22.7 % Low 39.0-51.0 [facility] Comment on above: Order Comment: Speci men Type: VENOUS BLOOD SPECIMENOrdering Facility: [facility] Address: [address] [place] [address] Performed By: #### 2 4344-4 ####[facility]CL[facility] [id number] [place] [address] [place] Hemoglobin (Bld) [Mass/Vol] 7.3 g/dL Low 13.0-17.0 [facility] Comment on above: Order Comment: Speci men Type: VENOUS BLOOD SPECIMENOrdering Facility: [facility] Address: [address] [place] [address] Performed By: #### 2 4344-4 ####[facility]CL[facility] [id number] [place] [address] [place] Lactate [Moles/Vol] 0.9 mmol/L Normal 0.5-2.2 [facility] Comment on above: Order Comment: Speci men Type: VENOUS BLOOD SPECIMENOrdering Facility: [facility] Address: [address] [place] [address] Performed By: #### 2 4344-4 ####[facility]CL[facility] [id number] [place] [address] [place] LITERS 3 Liters/min Normal [facility] Comment on above: Order Comment: Speci men Type: VENOUS BLOOD SPECIMENOrdering Facility: [facility] Address: [address] [place] [address] Performed By: #### 2 4344-4 ####[facility]CL[facility] [id number] [place] [address] [place] Methemoglobin (Bld) [Mass fraction] 1.4 % Normal 0.0-1.5 [facility] Comment on above: Order Comment: Speci men Type: VENOUS BLOOD SPECIMENOrdering Facility: [facility] Address: [address] [place] [address] Performed By: #### 2 4344-4 ####[facility]CL[facility] [id number] [place] [address] [place] O2 THERAPY NC = Nasal Cannula Normal [facility] Comment on above: Order Comment: Speci men Type: VENOUS BLOOD SPECIMENOrdering Facility: [facility] Address: [address] [place] [address] Performed By: #### 2 4344-4 ####[facility] LABCLIA [id number] [address] [place] [address] [place] Oxygen (BldV) [Partial pressure] 38 mm[Hg] Normal 35-45 [facility] Comment on above: Order Comment: Speci men Type: VENOUS BLOOD SPECIMENOrdering Facility: [facility] Address: [address] [place], [place] [address] Performed By: #### 2 4344-4 ####[facility]CLIA [id number] [address] [place] [address] [place] Oxygen saturation in Venous blood 65 % Normal 60-85 [facility] Comment on above: Order Comment: Speci men Type: VENOUS BLOOD SPECIMENOrdering Facility: [facility] Address: [address] [place], [place] [address] Performed By: #### 2 4344-4 ####[facility] LABIA [id number] [address] [place] [address] [place] Oxyhemoglobin (BldV) [Mass fraction] 63 % Normal 60-85 [facility] Comment on above: Order Comment: Speci men Type: VENOUS BLOOD SPECIMENOrdering Facility: [facility] Address: [address] [place], [place] [address] Performed By: #### 2 4344-4 ####[facility]CL[facility] [id number] [address] [place] [address] [place] pH (BldV) 7.36 [pH] Normal 7.32-7.42 [facility] Comment on above: Order Comment: Speci men Type: VENOUS BLOOD SPECIMENOrdering Facility: [facility] Address: [address] [place] [address] Performed By: #### 2 4344-4 ####[facility]CL[facility] [id number] [address] [address] [place] Potassium [Moles/Vol] 4.7 mmol/L Normal 3.5-5.0 [facility] Comment on above: Order Comment: Speci men Type: VENOUS BLOOD SPECIMENOrdering Facility: [facility] Address: [address] [place] [address] Performed By: #### 2 4344-4 ####[facility]CL[facility] [id number] [place] [address] [place] Sodium [Moles/Vol] 134 mmol/L Low 136-144 [facility] Comment on above: Order Comment: Speci men Type: VENOUS BLOOD SPECIMENOrdering Facility: [facility] Address: [address] [place] [address] Performed By: #### 2 4344-4 ####[facility]CL[facility] [id number] [place] [address] [place] Base excess Calc (BldV) [Moles/Vol] 4 mmol/L High 0-2 [facility] Comment on above: Order Comment: Speci men Type: VENOUS BLOOD SPECIMENOrdering Facility: [facility] Address: [address] [place] [address] Performed By: #### 2 4344-4 ####[facility]CL[facility] [id number] [place] [address] [place] Body temperature 99.14 [degF] Normal [facility] Comment on above: Order Comment: Speci men Type: VENOUS BLOOD SPECIMENOrdering Facility: [facility] Address: [address] [place] [address] Performed By: #### 2 4344-4 ####[facility]CL[facility] [id number] [place] [address] [place] Calcium.ionized (Bld) [Mass/Vol] 1.19 mmol/L Normal 1.08-1.30 [facility] Comment on above: Order Comment: Speci men Type: VENOUS BLOOD SPECIMENOrdering Facility: [facility] Address: [address] [place] [address] Performed By: #### 2 4344-4 ####[facility]CL[facility] [id number] [place] [address] [place] Calcium.ionized adjusted to pH 7.4 (BldA) [Moles/Vol] 1.16 mmol/L Normal 1.08-1.30 [facility] Comment on above: Order Comment: Speci men Type: VENOUS BLOOD SPECIMENOrdering Facility: [facility] Address: [address] [place] [address] Performed By: #### 2 4344-4 ####[facility] LABIA [id number] [place] [address] [place] Carboxyhemoglobin (BldV) [Mass fraction] 1.2 % Normal 0.0-2.0 [facility] Comment on above: Order Comment: Speci men Type: VENOUS BLOOD SPECIMENOrdering Facility: [facility] Address: [address] [place] [address] Result Comment: Carb oxyhemoglobin Reference Range for Smokers: 2.0-8.0% Performed By: #### 2 4344-4 ####[facility]CL[facility] [id number] [place] [address] [place] CO2 (BldV) [Partial pressure] 56 mm[Hg] High 42-55 [facility] Comment on above: Order Comment: Speci men Type: VENOUS BLOOD SPECIMENOrdering Facility: [facility] Address: [address] [place] [address] Performed By: #### 2 4344-4 ####[facility]CL[facility] [id number] [place] [address] [place] CO2 adjusted to patient's actual temperature (BldV) [Partial pressure] 57 mmHg High 42-55 [facility] Comment on above: Order Comment: Speci men Type: VENOUS BLOOD SPECIMENOrdering Facility: [facility] Address: [address] [place] [address] Performed By: #### 2 4344-4 ####[facility]CLIA [id number] [facility] [address] [place] [address] [place] Glucose [Mass/Vol] 142 mg/dL High 60-105 [facility] Comment on above: Order Comment: Speci men Type: VENOUS BLOOD SPECIMENOrdering Facility: [facility] Address: [address] [place] [address] Performed By: #### 2 4344-4 ####[facility]CLIA [id number] [facility] [address] [place] [address] [place] HCO3 (Bld) [Moles/Vol] 30 mmol/L High 24-[address] [facility] Comment on above: Order Comment: Speci men Type: VENOUS BLOOD SPECIMENOrdering Facility: [facility] Address: [address] [place] [address] Performed By: #### 2 4344-4 ####[facility] LABCLIA [id number] [facility] [address], [facility] [place] Hematocrit (Bld) [Volume fraction] 22.0 % Low 39.0-51.0 [facility] Comment on above: Order Comment: Speci men Type: VENOUS BLOOD SPECIMENOrdering Facility: [facility] Address: [address] [place], [place] [address] Performed By: #### 2 4344-4 ####[facility] LABCLIA [id number] [facility] [address] [place] [address] [place] Hemoglobin (Bld) [Mass/Vol] 7.0 g/dL Low 13.0-17.0 [facility] Comment on above: Order Comment: Speci men Type: VENOUS BLOOD SPECIMENOrdering Facility: [facility] Address: [address] [place], [place] [address] Performed By: #### 2 4344-4 ####[facility] LABCLIA [id number] [facility] [id number] [place] Lactate [Moles/Vol] 1.0 mmol/L Normal 0.5-2.2 [facility] Comment on above: Order Comment: Speci men Type: VENOUS BLOOD SPECIMENOrdering Facility: [facility] Address: [address] [place] [address] Performed By: #### 2 4344-4 ####[facility] LABCLIA [id number] [place] [address] [place] LITERS 3 Liters/min Normal [facility] Comment on above: Order Comment: Speci men Type: VENOUS BLOOD SPECIMENOrdering Facility: [facility] Address: [address] [place] [address] Performed By: #### 2 4344-4 ####[facility]CL[facility] [id number] [place] [address] [place] Methemoglobin (Bld) [Mass fraction] 1.2 % Normal 0.0-1.5 [facility] Comment on above: Order Comment: Speci men Type: VENOUS BLOOD SPECIMENOrdering Facility: [facility] Address: [address] [place] [address] Performed By: #### 2 4344-4 ####[facility]CLIA [id number] [place] [address] [place] O2 THERAPY NC = Nasal Cannula Normal [facility] Comment on above: Order Comment: Speci men Type: VENOUS BLOOD SPECIMENOrdering Facility: [facility] Address: [address] [place] [address] Performed By: #### 2 4344-4 ####[facility] LABCLIA [id number] [place] [id number] [place] Oxygen (BldV) [Partial pressure] 41 mm[Hg] Normal 35-45 [facility] Comment on above: Order Comment: Speci men Type: VENOUS BLOOD SPECIMENOrdering Facility: [facility] Address: [address] [place], [place] [address] Performed By: #### 2 4344-4 ####[facility] LABCLIA [id number] [address] [address] [place] Oxygen adjusted to patient's actual temperature (BldV) [Partial pressure] 42 mmHg Normal 35-45 [facility] Comment on above: Order Comment: Speci men Type: VENOUS BLOOD SPECIMENOrdering Facility: [facility] Address: [address] [place] [address] Performed By: #### 2 4344-4 ####[facility] LABCLIA [id number] [place] [id number] [place] Oxygen saturation in Venous blood 66 % Normal 60-85 [facility] Comment on above: Order Comment: Speci men Type: VENOUS BLOOD SPECIMENOrdering Facility: [facility] Address: [address] [place] [address] Performed By: #### 2 4344-4 ####[facility] LABCLIA [id number] [place] [id number] [place] Oxyhemoglobin (BldV) [Mass fraction] 65 % Normal 60-85 [facility] Comment on above: Order Comment: Speci men Type: VENOUS BLOOD SPECIMENOrdering Facility: [facility] Address: [address] [place] [address] Performed By: #### 2 4344-4 ####[facility] LABCLIA [id number] [place] [id number] [place] pH (BldV) 7.35 [pH] Normal 7.32-7.42 [facility] Comment on above: Order Comment: Speci men Type: VENOUS BLOOD SPECIMENOrdering Facility: [facility] Address: [address] [place], [place] [address] Performed By: #### 2 4344-4 ####[facility] LABCLIA [id number] [place] [id number] [place] pH adjusted to patient's actual temperature (BldV) 7.34 Normal 7.32-7.42 [facility] Comment on above: Order Comment: Speci men Type: VENOUS BLOOD SPECIMENOrdering Facility: [facility] Address: [address] [place] [address] Performed By: #### 2 4344-4 ####[facility] LABCLIA [id number] [place] [address] [place] Potassium [Moles/Vol] 4.6 mmol/L Normal 3.5-5.0 [facility] Comment on above: Order Comment: Speci men Type: VENOUS BLOOD SPECIMENOrdering Facility: [facility] Address: [address] [place] [address] Performed By: #### 2 4344-4 ####[facility]CLIA [id number] [place] [address] [place] Sodium [Moles/Vol] 133 mmol/L Low 136-144 [facility] Comment on above: Order Comment: Speci men Type: VENOUS BLOOD SPECIMENOrdering Facility: [facility] Address: [address] [place] [address] Performed By: #### 2 4344-4 ####[facility]CLIA [id number] [place] [address] [place] Base excess Calc (BldV) [Moles/Vol] 4 mmol/L High 0-2 [facility] Comment on above: Order Comment: Speci men Type: VENOUS BLOOD SPECIMENOrdering Facility: [facility] Address: [address] [place] [address] Performed By: #### 2 4344-4 ####[facility] LABCLIA [id number] [place] [address] [place] Calcium.ionized adjusted to pH 7.4 (BldA) [Moles/Vol] 1.17 mmol/L Normal 1.08-1.30 [facility] Comment on above: Order Comment: Speci men Type: VENOUS BLOOD SPECIMENOrdering Facility: [facility] Address: [address] [place] [address] Performed By: #### 2 4344-4 ####[facility] LABCLIA [id number] [address] [address] [place] Carboxyhemoglobin (BldV) [Mass fraction] 1.1 % Normal 0.0-2.0 [facility] Comment on above: Order Comment: Speci men Type: VENOUS BLOOD SPECIMENOrdering Facility: [facility] Address: [address] [place], [place] [address] Result Comment: Carb oxyhemoglobin Reference Range for Smokers: 2.0-8.0% Performed By: #### 2 4344-4 ####[facility] LABCLIA [id number] [address] [place] [address] [place] CO2 (BldV) [Partial pressure] 49 mm[Hg] Normal 42-55 [facility] Comment on above: Order Comment: Speci men Type: VENOUS BLOOD SPECIMENOrdering Facility: [facility] Address: [address] [place], [place] [address] Performed By: #### 2 4344-4 ####[facility] LABCLIA [id number] [address] [address] [place] CO2 adjusted to patient's actual temperature (BldV) [Partial pressure] 49 mmHg Normal 42-55 [facility] Comment on above: Order Comment: Speci men Type: VENOUS BLOOD SPECIMENOrdering Facility: [facility] Address: [address] [place] [address] Performed By: #### 2 4344-4 ####[facility] LABCLIA [id number] [address] [address] [place] Glucose [Mass/Vol] 230 mg/dL High 60-105 [facility] Comment on above: Order Comment: Speci men Type: VENOUS BLOOD SPECIMENOrdering Facility: [facility] Address: [address] [place], [place] [address] Performed By: #### 2 4344-4 ####[facility] LABCLIA [id number] [address] [address] [place] Hematocrit (Bld) [Volume fraction] 23.8 % Low 39.0-51.0 [facility] Comment on above: Order Comment: Speci men Type: VENOUS BLOOD SPECIMENOrdering Facility: [facility] Address: [address] [place] [address] Performed By: #### 2 4344-4 ####[facility] LABIA [id number] [place] [id number] [place] Hemoglobin (Bld) [Mass/Vol] 7.6 g/dL Low 13.0-17.0 [facility] Comment on above: Order Comment: Speci men Type: VENOUS BLOOD SPECIMENOrdering Facility: [facility] Address: [address] [place] [address] Performed By: #### 2 4344-4 ####[facility] LABIA [id number] [place] [id number] [place] Methemoglobin (Bld) [Mass fraction] 1.2 % Normal 0.0-1.5 [facility] Comment on above: Order Comment: Speci men Type: VENOUS BLOOD SPECIMENOrdering Facility: [facility] Address: [address] [place] [address] Performed By: #### 2 4344-4 ####[facility] LABIA [id number] [address] [address] [place] Oxygen (BldV) [Partial pressure] 43 mm[Hg] Normal 35-45 [facility] Comment on above: Order Comment: Speci men Type: VENOUS BLOOD SPECIMENOrdering Facility: [facility] Address: [address] [place], [place] [address] Performed By: #### 2 4344-4 ####[facility] LABIA [id number] [place] [id number] [place] Oxygen adjusted to patient's actual temperature (BldV) [Partial pressure] 42 mmHg Normal 35-45 [facility] Comment on above: Order Comment: Speci men Type: VENOUS BLOOD SPECIMENOrdering Facility: [facility] Address: [address] [place], [place] [address] Performed By: #### 2 4344-4 ####[facility] LABCLIA [id number] [address] [address] [place] Oxygen saturation in Venous blood 71 % Normal 60-85 [facility] Comment on above: Order Comment: Speci men Type: VENOUS BLOOD SPECIMENOrdering Facility: [facility] Address: [address] [place] [address] Performed By: #### 2 4344-4 ####[facility] LABCLIA [id number] [place] [id number] [place] Oxyhemoglobin (BldV) [Mass fraction] 70 % Normal 60-85 [facility] Comment on above: Order Comment: Speci men Type: VENOUS BLOOD SPECIMENOrdering Facility: [facility] Address: [address] [place], [place] [address] Performed By: #### 2 4344-4 ####[facility] LABCLIA [id number] [place] [id number] [place] pH (BldV) 7.38 [pH] Normal 7.32-7.42 [facility] Comment on above: Order Comment: Speci men Type: VENOUS BLOOD SPECIMENOrdering Facility: [facility] Address: [address] [place], [place] [address] Performed By: #### 2 4344-4 ####[facility] LABCLIA [id number] [place] [id number] [place] pH adjusted to patient's actual temperature (BldV) 7.39 Normal 7.32-7.42 [facility] Comment on above: Order Comment: Speci men Type: VENOUS BLOOD SPECIMENOrdering Facility: [facility] Address: [address] [place] [id number] Performed By: #### 2 4344-4 ####[facility] LABCLIA [id number] [address] [address] [place] Potassium [Moles/Vol] 4.4 mmol/L Normal 3.5-5.0 [facility] Comment on above: Order Comment: Speci men Type: VENOUS BLOOD SPECIMENOrdering Facility: [facility] Address: [address] [place] [address] Performed By: #### 2 4344-4 ####[facility] LABCLIA [id number] [place] [id number] [place] Sodium [Moles/Vol] 134 mmol/L Low 136-144 [facility] Comment on above: Order Comment: Speci men Type: VENOUS BLOOD SPECIMENOrdering Facility: [facility] Address: [address] [place] [address] Performed By: #### 2 4344-4 ####[facility] LABCLIA [id number] [address] [address] [place] Base excess Calc (BldV) [Moles/Vol] 4 mmol/L High 0-2 [facility] Comment on above: Order Comment: Speci men Type: VENOUS BLOOD SPECIMENOrdering Facility: [facility] Address: [address] [place], [place] [address] Performed By: #### 2 4344-4 ####[facility] LABCLIA [id number] [address] [address] [place] Body temperature 98.6 [degF] Normal [facility] Comment on above: Order Comment: Speci men Type: VENOUS BLOOD SPECIMENOrdering Facility: [facility] Address: [address] [place], [place] [address] Performed By: #### 2 4344-4 ####[facility] LABCLIA [id number] [address] [address] [place] Calcium.ionized (Bld) [Mass/Vol] 1.17 mmol/L Normal 1.08-1.30 [facility] Comment on above: Order Comment: Speci men Type: VENOUS BLOOD SPECIMENOrdering Facility: [facility] Address: [address] [place] [address] Performed By: #### 2 4344-4 ####[facility] [id number] [place] [address] [place] Calcium.ionized adjusted to pH 7.4 (BldA) [Moles/Vol] 1.15 mmol/L Normal 1.08-1.30 [facility] Comment on above: Order Comment: Speci men Type: VENOUS BLOOD SPECIMENOrdering Facility: [facility] Address: [address] [place] [address] Performed By: #### 2 4344-4 ####[facility] [id number] [address] STATES OF [facility] Carboxyhemoglobin (BldV) [Mass fraction] 1.2 % Normal 0.0-2.0 [facility] Comment on above: Order Comment: Speci men Type: VENOUS BLOOD SPECIMENOrdering Facility: [facility] Address: [address] [place] [address] Result Comment: Carb oxyhemoglobin Reference Range for Smokers: 2.0-8.0% Performed By: #### 2 4344-4 ####[facility] [id number] [place] [address] [place] CO2 (BldV) [Partial pressure] 51 mm[Hg] Normal 42-55 [facility] Comment on above: Order Comment: Speci men Type: VENOUS BLOOD SPECIMENOrdering Facility: [facility] Address: [address] [place] [address] Performed By: #### 2 4344-4 ####[facility] LABIA [id number] [place] [address] [place] Glucose [Mass/Vol] 209 mg/dL High 60-105 [facility] Comment on above: Order Comment: Speci men Type: VENOUS BLOOD SPECIMENOrdering Facility: [facility] Address: [address] [place] [address] Performed By: #### 2 4344-4 ####[facility] LABCLIA [id number] [facility] [address] [address] [place] HCO3 (Bld) [Moles/Vol] 29 mmol/L High 24-[address] [facility] Comment on above: Order Comment: Speci men Type: VENOUS BLOOD SPECIMENOrdering Facility: [facility] Address: [address] [place] [address] Performed By: #### 2 4344-4 ####[facility] LABIA [id number] [place] [address] [place] Hematocrit (Bld) [Volume fraction] 23.2 % Low 39.0-51.0 [facility] Comment on above: Order Comment: Speci men Type: VENOUS BLOOD SPECIMENOrdering Facility: [facility] Address: [address] [place] [address] Performed By: #### 2 4344-4 ####[facility] LABIA [id number] [place] [address] [place] Hemoglobin (Bld) [Mass/Vol] 7.4 g/dL Low 13.0-17.0 [facility] Comment on above: Order Comment: Speci men Type: VENOUS BLOOD SPECIMENOrdering Facility: [facility] Address: [address] [place] [address] Performed By: #### 2 4344-4 ####[facility] LABIA [id number] [place] [address] [place] Lactate [Moles/Vol] 0.5 mmol/L Normal 0.5-2.2 [facility] Comment on above: Order Comment: Speci men Type: VENOUS BLOOD SPECIMENOrdering Facility: [facility] Address: [address] [place] [address] Performed By: #### 2 4344-4 ####[facility] LABCLIA [id number] [place] [address] [place] LITERS 5 Liters/min Normal [facility] Comment on above: Order Comment: Speci men Type: VENOUS BLOOD SPECIMENOrdering Facility: [facility] Address: [address] [place] [id number] Performed By: #### 2 4344-4 ####[facility] LABCLIA [id number] [place] [id number] [place] Methemoglobin (Bld) [Mass fraction] 1.4 % Normal 0.0-1.5 [facility] Comment on above: Order Comment: Speci men Type: VENOUS BLOOD SPECIMENOrdering Facility: [facility] Address: [address] [place] [address] Performed By: #### 2 4344-4 ####[facility] LABIA [id number] [place] [id number] [place] O2 THERAPY NC = Nasal Cannula Normal [facility] Comment on above: Order Comment: Speci men Type: VENOUS BLOOD SPECIMENOrdering Facility: [facility] Address: [address] [place], [place] [address] Performed By: #### 2 4344-4 ####[facility] LABCLIA [id number] [address] [address] [place] Oxygen (BldV) [Partial pressure] 40 mm[Hg] Normal 35-45 [facility] Comment on above: Order Comment: Speci men Type: VENOUS BLOOD SPECIMENOrdering Facility: [facility] Address: [address] [place] [id number] Performed By: #### 2 4344-4 ####[facility] LABCLIA [id number] [address] [address] [place] Oxygen saturation in Venous blood 67 % Normal 60-85 [facility] Comment on above: Order Comment: Speci men Type: VENOUS BLOOD SPECIMENOrdering Facility: [facility] Address: [address] [place] [address] Performed By: #### 2 4344-4 ####[facility] LABCLIA [id number] [address] [place] [address] [place] Oxyhemoglobin (BldV) [Mass fraction] 66 % Normal 60-85 [facility] Comment on above: Order Comment: Speci men Type: VENOUS BLOOD SPECIMENOrdering Facility: [facility] Address: [address] [place] [address] Performed By: #### 2 4344-4 ####[facility] LABIA [id number] [address] [address] [place] pH (BldV) 7.37 [pH] Normal 7.32-7.42 [facility] Comment on above: Order Comment: Speci men Type: VENOUS BLOOD SPECIMENOrdering Facility: [facility] Address: [address] [place], [place] [id number] Performed By: #### 2 4344-4 ####[facility] LABIA [id number] [address] [address] [place] Potassium [Moles/Vol] 4.5 mmol/L Normal 3.5-5.0 [facility] Comment on above: Order Comment: Speci men Type: VENOUS BLOOD SPECIMENOrdering Facility: [facility] Address: [address] [place] [address] Performed By: #### 2 4344-4 ####[facility] LABIA [id number] [address] [address] [place] Sodium [Moles/Vol] 134 mmol/L Low 136-144 [facility] Comment on above: Order Comment: Speci men Type: VENOUS BLOOD SPECIMENOrdering Facility: [facility] Address: [address] [place] [address] Performed By: #### 2 4344-4 ####[facility] LABIA [id number] [place] [address] [place] Glucose Fld-mCncon 5 Glucose (Body fld) [Mass/Vol] 217 mg/dL Normal See Comment [facility] Comment on above: Order Comment: Speci men Type: FLUID SPECIMENOrdering Facility: [facility] Address: [address] [place] [address] Result Comment: Syno vial fluid: Synovial fluid glucose measurement may be useful in classifying various joint disorders. A concurrent plasma glucose measurement should be performed to determine the glucose plasma minus glucose synovial fluid???difference, which is normally <= 10.0 mg/dL.Artificial lowering of synovial fluid glucose, due to glycolytic action of leukocytes, may result from analyses that occur more than one hour from the time of collection.Reference: 1. CLSI. Analysis of Body Fluids in Clinical Chemistry Approved Guideline. CLSI document C49A. ANDREY Bright: Clinical Laboratory Standards [place]: 2007. Performed By: #### 2 344-0, 73176-2 ####[facility] LABIA [id number] [place] [address] [place] HEMATOCRIT, FLUIDon 10-25-19 25 HEMATOCRIT, FLUID 0.0 % Normal Reference range not available [facility] Comment on above: Order Comment: Speci men Type: SPECIMEN FROM PLEURA OBTAINED BY THORACENTESISOrdering Facility: [facility] Address: [address] [place] [address] Performed By: #### F LDHCT ####[facility] LABIA [id number] [place] [address] [place] HEMATOCRIT, FLUID TYPE Pleural Cavity, Right Normal [facility] Comment on above: Order Comment: Speci men Type: SPECIMEN FROM PLEURA OBTAINED BY THORACENTESISOrdering Facility: [facility] Address: [address] [place] [address] Performed By: #### F LDHCT ####[facility] LABIA [id number] [place] [address] [place] LDH Fld-cCncon 10-24-2024 LDH (Body fld) [Catalytic activity/Vol] 73 U/L Normal See Comment [facility] Comment on above: Order Comment: Speci men Type: SPECIMEN FROM PLEURA OBTAINED BY THORACENTESISOrdering Facility: [facility] Address: [address] [place] [address] Result Comment: Pleu ral fluids: Pleural fluid lactate dehydrogenase (LDH) measurements may be useful for classifying pleural effusions as exudates. A ratio of pleural fluid LDH to a concurrent serum LDH > 0.6 is suggestive of exudate.Peritoneal fluids: Ascitic fluid LDH measurements may aid in characterizing secondary peritonitis and should be interpreted along with other clinical and laboratory information.Synovial fluids: Synovial fluid LDH measurements may be useful as an inflammatory marker for various arthritic conditions and should be interpreted along with other clinical and laboratory information.Reference: 1. CLSI. Analysis of Body Fluids in Clinical Chemistry Approved Guideline. CLSI document C49A. Deangelo PA: Clinical Laboratory Standards [place]: 2007.Reference: 2. Stephanie SALDAÑA, Tyron Bourne. Body fluid analysis: clinical utility and applicability of published studies to guide interpretation of today's laboratory testing in serous fluids. Crit Rev Clin Lab Sci, 2013:50(4,5):107 to 124.Reference: 3. Chadd Arndt, Felice Bourne, Avtar SALDAÑA. Lactate dehydrogenase activity and its isoenzymes in serum and synovial fluid of patients with rheumatoid arthritis and osteoarthritis. J Rheumatol. 1992:19:529 to 533. Performed By: #### 2 881-1, 99081-3, 2529-6, 1747-5 ####[facility] LABCLIA [id number] [place] [address] [place] LDH SerPl-cCncon 10-24-2024 LDH [Catalytic activity/Vol] 415 U/L High 135-225 [facility] Comment on above: Order Comment: Speci men Type: BLOOD SPECIMENOrdering Facility: [facility] Address: [address] [place] [address] Performed By: #### 2 532-0 ####[facility] LABCLIA [id number] [address] [place] [address] [place] LDH [Catalytic activity/Vol] 383 U/L High 135-225 [facility] Comment on above: Order Comment: Speci men Type: BLOOD SPECIMENOrdering Facility: [facility] Address: [address] [place] [address] Performed By: #### C YS, 2532-0 ####[facility] LABCLIA [id number] [place] [address] [place] MANUAL DIFFERENTIAL, BODY FL UIDon 10-24-2024 DIF TTL, BODY FLUID 100 cells counted Normal [facility] Comment on above: Order Comment: Speci men Type: SPECIMEN FROM PLEURA OBTAINED BY THORACENTESISOrdering Facility: [facility] Address: [address] [place] [address] Performed By: #### C CBF, [id number] ####[facility] LABCLIA [id number] [place] [address] [place] LYMPH%, BF 51 % High 18-36 [facility] Comment on above: Order Comment: Speci men Type: SPECIMEN FROM PLEURA OBTAINED BY THORACENTESISOrdering Facility: [facility] Address: [address] [place] [address] Performed By: #### C CBF, [id number] ####[facility] LABCLIA [id number] [place] [address] [place] MESO %, BF 2 % Normal 0-2 [facility] Comment on above: Order Comment: Speci men Type: SPECIMEN FROM PLEURA OBTAINED BY THORACENTESISOrdering Facility: [facility] Address: [address] [place] [address] Performed By: #### C CBF, [id number] ####[facility] LABCLIA [id number] [address], [facility] [place] MONOCYTES/MACROPHAGES %, BF 22 % Low 64-80 [facility] Comment on above: Order Comment: Speci men Type: SPECIMEN FROM PLEURA OBTAINED BY THORACENTESISOrdering Facility: [facility] Address: [address] [place] [address] Performed By: #### C CBF, [id number] ####[facility] LABCLIA [id number] [address] [place] [address] [place] NEUT%, BF 25 % High 0-1 [facility] Comment on above: Order Comment: Speci men Type: SPECIMEN FROM PLEURA OBTAINED BY THORACENTESISOrdering Facility: [facility] Address: [address] [place] [address] Performed By: #### C CBF, [id number] ####[facility] LABCLIA [id number] [address] [place] [address] [place] NT-proBNP [facility] 10-24 Natriuretic peptide.B prohormone N-Terminal [Mass/Vol] 54470 pg/mL High <125 [facility] Comment on above: Order Comment: Speci men Type: BLOOD SPECIMENOrdering Facility: [facility] Address: [address] [place] [address] Performed By: #### 2 4321-2, 99180-6 ####[facility] LABCLIA [id number] [address] [place] [address] [place] PATHOLOGIST INTERPRETATION C BC/DIFFon 10-24-2024 Child Specialist review Jose Carlos (Unsp spec) [Interp] No review performed. Normal [facility] Comment on above: Order Comment: Speci men Type: BLOOD SPECIMENOrdering Facility: [facility] Address: [address] [place] [address] Performed By: #### 5 7782-5, STFREV ####[facility] LABCLIA [id number] [address] [place] [address] [place] STAFF REVIEW, CBCDIF Normal [facility] Comment on above: Order Comment: Speci men Type: BLOOD SPECIMENOrdering Facility: [facility] Address: [address] [place] [address] Performed By: #### 5 7782-5, NESSA ####[facility] [id number] [place] [address] [place] PT panel Coag (PPP)on 2024 INR Coag (PPP) [Relative time] 1.2 {INR} Normal 0.9-1.3 [facility] Comment on above: Order Comment: Speci men Type: BLOOD SPECIMENOrdering Facility: [facility] Address: [address] [place] [address] Result Comment: Nettie min K Antagonist (VKA) Therapeutic Range: INR 2 to 3 (Target INR of 2.5)Note: For patients treated with VKA drugs, such as warfarin, the [employer] [employer] 2012 Guideline recommends a therapeutic INR range of 2 to 3 (target INR of 2.5). This recommendation includes high-risk patients with antiphospholipid syndrome with previous arterial or venous thromboembolism, current-generation mechanical or bioprosthetic aortic heart valve replacement.Note: Patients with mechanical aortic valve replacement and additional risk factors for thromboembolic events (atrial fibrillation, previous thromboembolism, LV dysfunction, hypercoagulable conditions) or an older generation mechanical AVR (i.e., ball in-Cage) or any mechanical MVR should have a INR therapeutic range of 2.5 to 3.5 (target INR of 3).Cecile GH, et al. Chest 2012, 141:7S-47SNishfelicia RA, et al. [facility] 2017, 70: 252-289 Performed By: #### 3 4528-0, 3216-08 ####[facility] [id number] [place] [id number] [place] PT Coag (PPP) [Time] 13.1 s High 9.7-13.0 [facility] Comment on above: Order Comment: Gini nowak Type: BLOOD SPECIMENOrdering Facility: [facility] Address: [address] [place] [address] Performed By: #### 3 4528-0, 3216-08 ####[facility] LABCLIA [id number] [place] [id number] [place] Prot Fld-mCncon 10-24-2024 Protein (Body fld) [Mass/Vol] 1.1 g/dL Normal See Comment [facility] Comment on above: Order Comment: Speci men Type: SPECIMEN FROM PLEURA OBTAINED BY THORACENTESISOrdering Facility: [facility] Address: [address] [place] [address] Result Comment: Sero us fluids: Effusions are the accumulation of clinically detected fluid in any of the serous cavities. Effusions are further into transudates and exudates, which aid in determining the etiology of the effusion.Transudate: Body fluid total protein measurement < 3.0 g/dL. A ratio of serous fluid total protein to a concurrent serum total protein < 0.5 indicates a transudate.Exudate: Body fluid total protein measurement >= 3.0 g/dL. A ratio of serous fluid total protein to a concurrent serum total protein >= 0.5 indicates an exudate.Reference: 1. CLSI. Analysis of Body Fluids in Clinical Chemistry Approved Guideline. CLSI document C49A. ANDREY Bright: Clinical Laboratory Standards [place]: 2007. Performed By: #### 2 881-1, 45284-0, 2529-6, 1747-5 ####[facility] LABCLIA [id number] [place] [id number] [place] Prot SerPl-mCncon 10-24-2024 Protein [Mass/Vol] 5.2 g/dL Low 6.3-8.0 [facility] Comment on above: Order Comment: Speci men Type: BLOOD SPECIMENOrdering Facility: [facility] Address: [address] [place] [address] Performed By: #### 1 751-7, 2885-2, 2093-3 ####[facility] LABCLIA [id number] [place] [id number] [place] STAPHYLOCOCCUS AUREUS AND MR SA SCREEN, PCR, NASALon 10-24-2024 S. aureus and MRSA panel GENEVA+probe (Nose) Not detected Normal Not Detected [facility] Comment on above: Order Comment: Speci men Type: SWABOrdering Facility: [facility] Address: [address] [place] [address] Performed By: #### S APCR ####[facility] LABCLIA [id number] [place] [address] [place] Trigl Fld-mCncon 10-24-2024 Triglyceride (Body fld) [Mass/Vol] 14 mg/dL Normal [facility] Comment on above: Order Comment: Speci men Type: FLUID SPECIMENOrdering Facility: [facility] Address: [address] [place] [address] Result Comment: Syno vial fluids: Synovial fluid triglycerides measurement may be useful in classifying various joint disorders. ???The reference range for adult synovial fluid triglycerides measurement is <=40% of the concurrent plasma cholesterol measurement.Serous fluids: Serous fluid triglycerides measurement may be useful in classifying the effusion as chylous or nonchylous. ???A serous fluid triglycerides measurement >110 mg/dL is suggestive of a chylous effusion. ???A serous fluid triglycerides measurement <=110 mg/dL is suggestive of a nonchylous effusion.Reference: 1. CLSI. Analysis of Body Fluids in Clinical Chemistry;Approved Guideline. CLSI document C49A. ANDREY Bright: Clinical Laboratory Standards [place]; 2007. Performed By: #### 2 344-0, 15403-9 ####[facility] LABCLIA [id number] [place] [address] [place] Triglyceride (Body fld) [Mas s/Vol]on 10-24-2024 Fluid Nom (Body fld) Pleural Cavity, Right Normal [facility] Comment on above: Order Comment: Speci men Type: FLUID SPECIMENOrdering Facility: [facility] Address: [address] [place] [address] Performed By: #### 2 344-0, 02447-3 ####[facility] LABCLIA [id number] [place] [id number] [place] XR CHEST 1V FRONTAL PORTon 0 10-24-2024 XR CHEST 1V FRONTAL PORT Normal [facility] XR CHEST 1V FRONTAL PORT Normal [facility] aPTT PPPon 10-24-2024 aPTT Coag (PPP) [Time] 29.5 s Normal 23.0-32.[address] [facility] Comment on above: Order Comment: Speci men Type: BLOOD SPECIMENOrdering Facility: [facility] Address: [address] [place] [address] Performed By: #### 3 217-7, 01530-2 ####[facility] LABCLIA [id number] [place] [address] [place] pH Fldon 10-24-2024 Fluid Nom (Body fld) Pleural Cavity, Right Normal [facility] Comment on above: Order Comment: Speci men Type: SPECIMEN FROM PLEURA OBTAINED BY THORACENTESISOrdering Facility: [facility] Address: [address] [place] [address] Performed By: #### 2 748-2 ####[facility] LABCLIA [id number] [place] [address] [place] Performed By: #### 2 881-1, 35150-8, 2529-6, 1747-5 ####[facility] LABCLIA [id number] [place] [address] [place] pH (Body fld) 8.0 [pH] Normal [facility] Comment on above: Order Comment: Speci men Type: SPECIMEN FROM PLEURA OBTAINED BY THORACENTESISOrdering Facility: [facility] Address: [address] [place] [address] Result Comment: No r eference range has been established for this specimen type.This test was developed, and its performance characteristics determined by the [facility] Department of Pathology and Laboratory Medicine. It has not been cleared or approved by the FDA. The [facility] Department of Pathology and Laboratory Medicine is regulated under CLIA as qualified to perform high-complexity testing. This test is used for clinical purposes. It should not be regarded as investigational or for research. Performed By: #### 2 748-2 ####[facility] LABCLIA [id number] [place] [address] [place] ANES POSTPROC EVALon 025 ANES POSTPROC EVAL Normal [facility] ANES PRE-OPon 10-23-2024 ANES PRE-OP Normal [facility] ARTERIAL BLOOD GASESon 10-23 Base excess Calc (Bld) [Moles/Vol] 3 mmol/L High 0-2 [facility] Comment on above: Order Comment: Speci men Type: ARTERIAL BLOOD SPECIMENOrdering Facility: [facility] Address: [address] [place] [address] Performed By: #### A LLBG ####[facility] LABCLIA [id number] [place] [address] [place] Body temperature 98.6 [degF] Normal [facility] Comment on above: Order Comment: Speci men Type: ARTERIAL BLOOD SPECIMENOrdering Facility: [facility] Address: [address] [place] [address] Performed By: #### A LLBG ####[facility] LABCLIA [id number] [place] [address] [place] Order Comment: Speci men Type: VENOUS BLOOD SPECIMENOrdering Facility: [facility] Address: [address] [place] [address] Performed By: #### 2 4344-4 ####[facility] LABCLIA [id number] [place] [address] [place] Calcium.ionized (Bld) [Mass/Vol] 1.14 mmol/L Normal 1.08-1.30 [facility] Comment on above: Order Comment: Speci men Type: ARTERIAL BLOOD SPECIMENOrdering Facility: [facility] Address: [address] [place] [address] Performed By: #### A LLBG ####[facility] LABIA [id number] [place] [address] [place] Calcium.ionized adjusted to pH 7.4 (BldA) [Moles/Vol] 1.16 mmol/L Normal 1.08-1.30 [facility] Comment on above: Order Comment: Speci men Type: ARTERIAL BLOOD SPECIMENOrdering Facility: [facility] Address: [address] [place] [address] Performed By: #### A LLBG ####[facility] LABIA [id number] [place] [address] [place] Carboxyhemoglobin (BldA) [Mass fraction] 1.4 % Normal 0.0-2.0 [facility] Comment on above: Order Comment: Speci men Type: ARTERIAL BLOOD SPECIMENOrdering Facility: [facility] Address: [address] [place] [address] Result Comment: Carb oxyhemoglobin Reference Range for Smokers: 2.0-8.0% Performed By: #### A LLBG ####[facility] LABIA [id number] [place] [address] [place] CO2 (Bld) [Partial pressure] 40 mm Hg Normal 36-46 [facility] Comment on above: Order Comment: Speci men Type: ARTERIAL BLOOD SPECIMENOrdering Facility: [facility] Address: [address] [place] [address] Performed By: #### A LLBG ####[facility] LABIA [id number] [place] [address] [place] Glucose [Mass/Vol] 158 mg/dL High 60-105 [facility] Comment on above: Order Comment: Speci men Type: ARTERIAL BLOOD SPECIMENOrdering Facility: [facility] Address: [address] [place] [address] Performed By: #### A LLBG ####[facility] LABCLIA [id number] [address] [place] [address] [place] HCO3 (Bld) [Moles/Vol] 26 mmol/L Normal 22-[address] [facility] Comment on above: Order Comment: Speci men Type: ARTERIAL BLOOD SPECIMENOrdering Facility: [facility] Address: [address] [place] [address] Performed By: #### A LLBG ####[facility] LABCLIA [id number] [place] [address] [place] Hematocrit (Bld) [Volume fraction] 23.8 % Low 39.0-51.0 [facility] Comment on above: Order Comment: Speci men Type: ARTERIAL BLOOD SPECIMENOrdering Facility: [facility] Address: [address] [place] [address] Performed By: #### A LLBG ####[facility] LABCLIA [id number] [place] [address] [place] Hemoglobin (Bld) [Mass/Vol] 7.6 g/dL Low 13.0-17.0 [facility] Comment on above: Order Comment: Speci men Type: ARTERIAL BLOOD SPECIMENOrdering Facility: [facility] Address: [address] [place] [address] Performed By: #### A LLBG ####[facility] LABCLIA [id number] [place] [address] [place] Lactate [Moles/Vol] 1.4 mmol/L Normal 0.5-2.2 [facility] Comment on above: Order Comment: Speci men Type: ARTERIAL BLOOD SPECIMENOrdering Facility: [facility] [facility] Address: [address] [place] [address] Performed By: #### A LLBG ####[facility] LABCLIA [id number] [place] [id number] [place] LITERS 8 Liters/min Normal [facility] Comment on above: Order Comment: Speci men Type: ARTERIAL BLOOD SPECIMENOrdering Facility: [facility] Address: [address] [place], [place] [address] Performed By: #### A LLBG ####[facility] LABCLIA [id number] [address] [place] [address] [place] Methemoglobin (Bld) [Mass fraction] 1.1 % Normal 0.0-1.5 [facility] Comment on above: Order Comment: Speci men Type: ARTERIAL BLOOD SPECIMENOrdering Facility: [facility] Address: [address] [place] [address] Performed By: #### A LLBG ####[facility] LABCLIA [id number] [address] [place] [address] [place] O2 THERAPY SFM=Simple Face Mask Normal [facility] Comment on above: Order Comment: Speci men Type: ARTERIAL BLOOD SPECIMENOrdering Facility: [facility] Address: [address] [place] [address] Performed By: #### A LLBG ####[facility] LABCLIA [id number] [address] [place] [address] [place] Order Comment: Speci men Type: VENOUS BLOOD SPECIMENOrdering Facility: [facility] Address: [address] [place] [address] Performed By: #### 2 [id number] ####[facility] LABCLIA [id number] [address] [place] [address] [place] Oxygen (Bld) [Partial pressure] 141 mm Hg High 85-95 [facility] Comment on above: Order Comment: Speci men Type: ARTERIAL BLOOD SPECIMENOrdering Facility: [facility] Address: [address] [place], [place] [id number] Performed By: #### A LLBG ####[facility] LABCLIA [id number] [address] [place] [address] [place] Oxyhemoglobin (BldA) [Mass fraction] 97 % Normal 95-98 [facility] Comment on above: Order Comment: Speci men Type: ARTERIAL BLOOD SPECIMENOrdering Facility: [facility] Address: [address] [place] [address] Performed By: #### A LLBG ####[facility] LABCLIA [id number] [address] [address] [place] pH (Bld) 7.44 [pH] Normal 7.35-7.45 [facility] Comment on above: Order Comment: Speci men Type: ARTERIAL BLOOD SPECIMENOrdering Facility: [facility] Address: [address] [place] [address] Performed By: #### A LLBG ####[facility] LABCLIA [id number] [place] [address] [place] Potassium [Moles/Vol] 4.2 mmol/L Normal 3.5-5.0 [facility] Comment on above: Order Comment: Speci men Type: ARTERIAL BLOOD SPECIMENOrdering Facility: [facility] Address: [address] [place] [address] Performed By: #### A LLBG ####[facility] LABCLIA [id number] [place] [address] [place] Sodium [Moles/Vol] 133 mmol/L Low 136-144 [facility] Comment on above: Order Comment: Speci men Type: ARTERIAL BLOOD SPECIMENOrdering Facility: [facility] Address: [address] [place] [address] Performed By: #### A LLBG ####[facility] LABCLIA [id number] [address] [address] [place] Base excess Calc (Bld) [Moles/Vol] 5 mmol/L High 0-2 [facility] Comment on above: Order Comment: Speci men Type: ARTERIAL BLOOD SPECIMENOrdering Facility: [facility] Address: [address] [place], [place] [id number] Performed By: #### A LLBG ####[facility] LABCLIA [id number] [place] [address] [place] Calcium.ionized (Bld) [Mass/Vol] 1.18 mmol/L Normal 1.08-1.30 [facility] Comment on above: Order Comment: Speci men Type: ARTERIAL BLOOD SPECIMENOrdering Facility: [facility] Address: [address] [place] [address] Performed By: #### A LLBG ####[facility] LABIA [id number] [place] [address] [place] Calcium.ionized adjusted to pH 7.4 (BldA) [Moles/Vol] 1.20 mmol/L Normal 1.08-1.30 [facility] Comment on above: Order Comment: Speci men Type: ARTERIAL BLOOD SPECIMENOrdering Facility: [facility] Address: [address] [place] [address] Performed By: #### A LLBG ####[facility] LABIA [id number] [place] [address] [place] Carboxyhemoglobin (BldA) [Mass fraction] 1.7 % Normal 0.0-2.0 [facility] Comment on above: Order Comment: Speci men Type: ARTERIAL BLOOD SPECIMENOrdering Facility: [facility] Address: [address] [place] [address] Result Comment: Carb oxyhemoglobin Reference Range for Smokers: 2.0-8.0% Performed By: #### A LLBG ####[facility] LABIA [id number] [place] [address] [place] CO2 (Bld) [Partial pressure] 43 mm Hg Normal 36-46 [facility] Comment on above: Order Comment: Speci men Type: ARTERIAL BLOOD SPECIMENOrdering Facility: [facility] Address: [address] [place] [address] Performed By: #### A LLBG ####[facility] LABIA [id number] [place] [address] [place] CO2 adjusted to patient's actual temperature (Bld) [Partial pressure] 43 mmHg Normal 36-46 [facility] Comment on above: Order Comment: Speci men Type: ARTERIAL BLOOD SPECIMENOrdering Facility: [facility] Address: [address] [place] [address] Performed By: #### A LLBG ####[facility] LABCLIA [id number] [place] [address] [place] Glucose [Mass/Vol] 113 mg/dL High 60-105 [facility] Comment on above: Order Comment: Speci men Type: ARTERIAL BLOOD SPECIMENOrdering Facility: [facility] Address: [address] [place] [address] Performed By: #### A LLBG ####[facility] LABCLIA [id number] [address] [place] Hematocrit (Bld) [Volume fraction] 25.7 % Low 39.0-51.0 [facility] Comment on above: Order Comment: Speci men Type: ARTERIAL BLOOD SPECIMENOrdering Facility: [facility] Address: [address] [place] [address] Performed By: #### A LLBG ####[facility] LABCLIA [id number] [address] [place] Hemoglobin (Bld) [Mass/Vol] 8.2 g/dL Low 13.0-17.0 [facility] Comment on above: Order Comment: Speci men Type: ARTERIAL BLOOD SPECIMENOrdering Facility: [facility] Address: [address] [place] [address] Performed By: #### A LLBG ####[facility] LABCLIA [id number] [place] [address] [place] Lactate [Moles/Vol] 0.6 mmol/L Normal 0.5-2.2 [facility] Comment on above: Order Comment: Speci men Type: ARTERIAL BLOOD SPECIMENOrdering Facility: [facility] Address: [address] [place] [id number] Performed By: #### A LLBG ####[facility] LABCLIA [id number] [address] [place] [address] [place] Methemoglobin (Bld) [Mass fraction] 1.1 % Normal 0.0-1.5 [facility] Comment on above: Order Comment: Speci men Type: ARTERIAL BLOOD SPECIMENOrdering Facility: [facility] Address: [address] [place] [address] Performed By: #### A LLBG ####[facility] LABCLIA [id number] [address] [place] [address] [place] Oxygen (Bld) [Partial pressure] 73 mm Hg Low 85-95 [facility] Comment on above: Order Comment: Speci men Type: ARTERIAL BLOOD SPECIMENOrdering Facility: [facility] Address: [address] [place] [address] Performed By: #### A LLBG ####[facility] LABCLIA [id number] [address] [place] [address] [place] Oxygen adjusted to patient's actual temperature (Bld) [Partial pressure] 72 mmHg Low 85-95 [facility] Comment on above: Order Comment: Speci men Type: ARTERIAL BLOOD SPECIMENOrdering Facility: [facility] Address: [address] [place] [address] Performed By: #### A LLBG ####[facility] LABCLIA [id number] [address] [place] [address] [place] Oxyhemoglobin (BldA) [Mass fraction] 92 % Low 95-98 [facility] Comment on above: Order Comment: Speci men Type: ARTERIAL BLOOD SPECIMENOrdering Facility: [facility] Address: [address] [place], [place] [address] Performed By: #### A LLBG ####[facility] LABCLIA [id number] [address] [place] [address] [place] pH (Bld) 7.45 [pH] Normal 7.35-7.45 [facility] Comment on above: Order Comment: Speci men Type: ARTERIAL BLOOD SPECIMENOrdering Facility: [facility] Address: [address] [place] [address] Performed By: #### A LLBG ####[facility] LABCLIA [id number] [place] [address] [place] pH adjusted to patient's actual temperature (Bld) 7.45 Normal 7.35-7.45 [facility] Comment on above: Order Comment: Speci men Type: ARTERIAL BLOOD SPECIMENOrdering Facility: [facility] Address: [address] [place] [address] Performed By: #### A LLBG ####[facility] LABIA [id number] [place] [address] [place] Potassium [Moles/Vol] 4.5 mmol/L Normal 3.5-5.0 [facility] Comment on above: Order Comment: Speci men Type: ARTERIAL BLOOD SPECIMENOrdering Facility: [facility] Address: [address] [place] [address] Performed By: #### A LLBG ####[facility] LABCLIA [id number] [place] [address] [place] Sodium [Moles/Vol] 134 mmol/L Low 136-144 [facility] Comment on above: Order Comment: Speci men Type: ARTERIAL BLOOD SPECIMENOrdering Facility: [facility] Address: [address] [place] [address] Performed By: #### A LLBG ####[facility] LABCLIA [id number] [place] [address] [place] Base excess Calc (Bld) [Moles/Vol] 6 mmol/L High 0-2 [facility] Comment on above: Order Comment: Speci men Type: ARTERIAL BLOOD SPECIMENOrdering Facility: [facility] Address: [address] [place] [address] Performed By: #### A LLBG ####[facility] [id number] [place] [address] [place] Calcium.ionized (Bld) [Mass/Vol] 1.17 mmol/L Normal 1.08-1.30 [facility] Comment on above: Order Comment: Speci men Type: ARTERIAL BLOOD SPECIMENOrdering Facility: [facility] Address: [address] [place] [address] Performed By: #### A LLBG ####[facility] [id number] [place] [address] [place] Calcium.ionized adjusted to pH 7.4 (BldA) [Moles/Vol] 1.21 mmol/L Normal 1.08-1.30 [facility] Comment on above: Order Comment: Speci men Type: ARTERIAL BLOOD SPECIMENOrdering Facility: [facility] Address: [address] [place] [address] Performed By: #### A LLBG ####[facility] [id number] [place] [address] [place] Carboxyhemoglobin (BldA) [Mass fraction] 1.5 % Normal 0.0-2.0 [facility] Comment on above: Order Comment: Speci men Type: ARTERIAL BLOOD SPECIMENOrdering Facility: [facility] Address: [address] [place] [address] Result Comment: Carb oxyhemoglobin Reference Range for Smokers: 2.0-8.0% Performed By: #### A LLBG ####[facility] [id number] [place] [address] [place] CO2 (Bld) [Partial pressure] 42 mm Hg Normal 36-46 [facility] Comment on above: Order Comment: Speci men Type: ARTERIAL BLOOD SPECIMENOrdering Facility: [facility] Address: [address] [place] [address] Performed By: #### A LLBG ####[facility] LABCLIA [id number] [place] [address] [place] Hematocrit (Bld) [Volume fraction] 26.3 % Low 39.0-51.0 [facility] Comment on above: Order Comment: Speci men Type: ARTERIAL BLOOD SPECIMENOrdering Facility: [facility] Address: [address] [place] [address] Performed By: #### A LLBG ####[facility] LABIA [id number] [place] [address] [place] Hemoglobin (Bld) [Mass/Vol] 8.5 g/dL Low 13.0-17.0 [facility] Comment on above: Order Comment: Speci men Type: ARTERIAL BLOOD SPECIMENOrdering Facility: [facility] Address: [address] [place] [address] Performed By: #### A LLBG ####[facility] LABIA [id number] [place] [address] [place] Lactate [Moles/Vol] 0.6 mmol/L Normal 0.5-2.2 [facility] Comment on above: Order Comment: Speci men Type: ARTERIAL BLOOD SPECIMENOrdering Facility: [facility] Address: [address] [place] [address] Performed By: #### A LLBG ####[facility] LABIA [id number] [place] [address] [place] Methemoglobin (Bld) [Mass fraction] 0.4 % Normal 0.0-1.5 [facility] Comment on above: Order Comment: Speci men Type: ARTERIAL BLOOD SPECIMENOrdering Facility: [facility] Address: [address] [place] [address] Performed By: #### A LLBG ####[facility] LABIA [id number] [place] [address] [place] Oxygen (Bld) [Partial pressure] 126 mm Hg High 85-95 [facility] Comment on above: Order Comment: Speci men Type: ARTERIAL BLOOD SPECIMENOrdering Facility: [facility] Address: [address] [place] [address] Performed By: #### A LLBG ####[facility] LABCLIA [id number] [address] [address] [place] Oxyhemoglobin (BldA) [Mass fraction] 98 % Normal 95-98 [facility] Comment on above: Order Comment: Speci men Type: ARTERIAL BLOOD SPECIMENOrdering Facility: [facility] Address: [address] [place] [address] Performed By: #### A LLBG ####[facility] LABCLIA [id number] [place] [id number] [place] pH (Bld) 7.46 [pH] High 7.35-7.45 [facility] Comment on above: Order Comment: Speci men Type: ARTERIAL BLOOD SPECIMENOrdering Facility: [facility] Address: [address] [place] [address] Performed By: #### A LLBG ####[facility] LABIA [id number] [place] [id number] [place] Potassium [Moles/Vol] 4.6 mmol/L Normal 3.5-5.0 [facility] Comment on above: Order Comment: Speci men Type: ARTERIAL BLOOD SPECIMENOrdering Facility: [facility] Address: [address] [place] [address] Performed By: #### A LLBG ####[facility] LABCLIA [id number] [place] [id number] [place] Sodium [Moles/Vol] 133 mmol/L Low 136-144 [facility] Comment on above: Order Comment: Speci men Type: ARTERIAL BLOOD SPECIMENOrdering Facility: [facility] Address: [address] [place] [address] Performed By: #### A LLBG ####[facility] LABCLIA [id number] [place] [address] [place] Base excess Calc (Bld) [Moles/Vol] 6 mmol/L High 0-2 [facility] Comment on above: Order Comment: Speci men Type: ARTERIAL BLOOD SPECIMENOrdering Facility: [facility] Address: [address] [place] [address] Performed By: #### A LLBG ####[facility] LABIA [id number] [place] [address] [place] Body temperature 98.6 [degF] Normal [facility] Comment on above: Order Comment: Speci men Type: ARTERIAL BLOOD SPECIMENOrdering Facility: [facility] Address: [address] [place] [address] Performed By: #### A LLBG ####[facility] LABIA [id number] [place] [address] [place] Calcium.ionized (Bld) [Mass/Vol] 1.16 mmol/L Normal 1.08-1.30 [facility] Comment on above: Order Comment: Speci men Type: ARTERIAL BLOOD SPECIMENOrdering Facility: [facility] Address: [address] [place] [address] Performed By: #### A LLBG ####[facility] LABIA [id number] [place] [address] [place] Calcium.ionized adjusted to pH 7.4 (BldA) [Moles/Vol] 1.18 mmol/L Normal 1.08-1.30 [facility] Comment on above: Order Comment: Speci men Type: ARTERIAL BLOOD SPECIMENOrdering Facility: [facility] Address: [address] [place] [address] Performed By: #### A LLBG ####[facility] LABIA [id number] [place] [address] [place] Carboxyhemoglobin (BldA) [Mass fraction] 1.5 % Normal 0.0-2.0 [facility] Comment on above: Order Comment: Speci men Type: ARTERIAL BLOOD SPECIMENOrdering Facility: [facility] Address: [address] [place] [address] Result Comment: Carb oxyhemoglobin Reference Range for Smokers: 2.0-8.0% Performed By: #### A LLBG ####[facility] LABCLIA [id number] [place] [address] [place] CO2 (Bld) [Partial pressure] 47 mm Hg High 36-46 [facility] Comment on above: Order Comment: Speci men Type: ARTERIAL BLOOD SPECIMENOrdering Facility: [facility] Address: [address] [place] [address] Performed By: #### A LLBG ####[facility] LABCLIA [id number] [place] [address] [place] Glucose [Mass/Vol] 99 mg/dL Normal 60-105 [facility] Comment on above: Order Comment: Speci men Type: ARTERIAL BLOOD SPECIMENOrdering Facility: [facility] Address: [address] [place] [address] Performed By: #### A LLBG ####[facility] LABCLIA [id number] [place] [id number] [place] HCO3 (Bld) [Moles/Vol] 30 mmol/L High 22-[address] [facility] Comment on above: Order Comment: Speci men Type: ARTERIAL BLOOD SPECIMENOrdering Facility: [facility] Address: [address] [place] [address] Performed By: #### A LLBG ####[facility] LABCLIA [id number] [place] [id number] [place] Hematocrit (Bld) [Volume fraction] 25.9 % Low 39.0-51.0 [facility] Comment on above: Order Comment: Speci men Type: ARTERIAL BLOOD SPECIMENOrdering Facility: [facility] Address: [address] [place] [address] Performed By: #### A LLBG ####[facility] LABCLIA [id number] [place] [address] [place] Hemoglobin (Bld) [Mass/Vol] 8.3 g/dL Low 13.0-17.0 [facility] Comment on above: Order Comment: Speci men Type: ARTERIAL BLOOD SPECIMENOrdering Facility: [facility] Address: [address] [place] [address] Performed By: #### A LLBG ####[facility] LABCLIA [id number] [place] [address] [place] Lactate [Moles/Vol] 0.8 mmol/L Normal 0.5-2.2 [facility] Comment on above: Order Comment: Speci men Type: ARTERIAL BLOOD SPECIMENOrdering Facility: [facility] Address: [address] [place] [address] Performed By: #### A LLBG ####[facility] LABIA [id number] [place] [address] [place] LITERS 3 Liters/min Normal [facility] Comment on above: Order Comment: Speci men Type: ARTERIAL BLOOD SPECIMENOrdering Facility: [facility] Address: [address] [place] [address] Performed By: #### A LLBG ####[facility] LABCLIA [id number] [place] [id number] [place] Methemoglobin (Bld) [Mass fraction] 0.8 % Normal 0.0-1.5 [facility] Comment on above: Order Comment: Speci men Type: ARTERIAL BLOOD SPECIMENOrdering Facility: [facility] Address: [address] [place] [address] Performed By: #### A LLBG ####[facility] LABCLIA [id number] [place] [id number] [place] O2 THERAPY NC = Nasal Cannula Normal [facility] Comment on above: Order Comment: Speci men Type: ARTERIAL BLOOD SPECIMENOrdering Facility: [facility] Address: [address] [place] [address] Performed By: #### A LLBG ####[facility] LABCLIA [id number] [place] [id number] [place] Oxygen (Bld) [Partial pressure] 99 mm Hg High 85-95 [facility] Comment on above: Order Comment: Speci men Type: ARTERIAL BLOOD SPECIMENOrdering Facility: [facility] Address: [address] [place] [address] Performed By: #### A LLBG ####[facility] LABCLIA [id number] [place] [id number] [place] Oxyhemoglobin (BldA) [Mass fraction] 96 % Normal 95-98 [facility] Comment on above: Order Comment: Speci men Type: ARTERIAL BLOOD SPECIMENOrdering Facility: [facility] Address: [address] [place] [address] Performed By: #### A LLBG ####[facility] LABCLIA [id number] [place] [address] [place] pH (Bld) 7.42 [pH] Normal 7.35-7.45 [facility] Comment on above: Order Comment: Speci men Type: ARTERIAL BLOOD SPECIMENOrdering Facility: [facility] Address: [address] [place] [address] Performed By: #### A LLBG ####[facility] LABIA [id number] [place] [id number] [place] Potassium [Moles/Vol] 4.7 mmol/L Normal 3.5-5.0 [facility] Comment on above: Order Comment: Speci men Type: ARTERIAL BLOOD SPECIMENOrdering Facility: [facility] Address: [address] [place] [address] Performed By: #### A LLBG ####[facility] LABCLIA [id number] [place] [address] [place] Sodium [Moles/Vol] 133 mmol/L Low 136-144 [facility] Comment on above: Order Comment: Speci men Type: ARTERIAL BLOOD SPECIMENOrdering Facility: [facility] Address: [address] [place] [address] Performed By: #### A LLBG ####[facility] LABCLIA [id number] [place] [address] [place] ARTERIAL BLOOD GASES WITH IO NIZED MAGNESIUMon 10-23-2024 Base excess Calc (Bld) [Moles/Vol] 4 mmol/L High 0-2 [facility] Comment on above: Order Comment: Speci men Type: ARTERIAL BLOOD SPECIMENOrdering Facility: [facility] Address: [address] [place] [address] Performed By: #### A LLMG ####[facility] [id number] [place] [address] [place] Calcium.ionized (Bld) [Mass/Vol] 1.16 mmol/L Normal 1.08-1.30 [facility] Comment on above: Order Comment: Speci men Type: ARTERIAL BLOOD SPECIMENOrdering Facility: [facility] Address: [address] [place] [address] Performed By: #### A LLMG ####[facility] LABCLIA [id number] [place] [address] [place] Calcium.ionized adjusted to pH 7.4 (BldA) [Moles/Vol] 1.19 mmol/L Normal 1.08-1.30 [facility] Comment on above: Order Comment: Speci men Type: ARTERIAL BLOOD SPECIMENOrdering Facility: [facility] Address: [address] [place] [address] Performed By: #### A LLMG ####[facility] LABCLIA [id number] [place] [address] [place] Carboxyhemoglobin (BldA) [Mass fraction] 1.5 % Normal 0.0-2.0 [facility] Comment on above: Order Comment: Speci men Type: ARTERIAL BLOOD SPECIMENOrdering Facility: [facility] Address: [address] [place] [address] Result Comment: Carb oxyhemoglobin Reference Range for Smokers: 2.0-8.0% Performed By: #### A LLMG ####[facility] LABCLIA [id number] [place] [address] [place] CO2 (Bld) [Partial pressure] 41 mm Hg Normal 36-46 [facility] Comment on above: Order Comment: Speci men Type: ARTERIAL BLOOD SPECIMENOrdering Facility: [facility] Address: [address] [place] [address] Performed By: #### A LLMG ####[facility] LABCLIA [id number] [place] [address] [place] CO2 adjusted to patient's actual temperature (Bld) [Partial pressure] 41 mmHg Normal 36-46 [facility] Comment on above: Order Comment: Speci men Type: ARTERIAL BLOOD SPECIMENOrdering Facility: [facility]. [facility] Address: [address] [place] [address] Performed By: #### A LLMG ####[facility] LABCLIA [id number] [place] [address] [place] Glucose [Mass/Vol] 131 mg/dL High 60-105 [facility] Comment on above: Order Comment: Speci men Type: ARTERIAL BLOOD SPECIMENOrdering Facility: [facility] Address: [address] [place] [address] Performed By: #### A LLMG ####[facility] LABCLIA [id number] [place] [id number] [place] HCO3 (Bld) [Moles/Vol] 28 mmol/L High 22-[address] [facility] Comment on above: Order Comment: Speci men Type: ARTERIAL BLOOD SPECIMENOrdering Facility: [facility] Address: [address] [place] [address] Performed By: #### A LLMG ####[facility] LABIA [id number] [place] [address] [place] Hematocrit (Bld) [Volume fraction] 26.4 % Low 39.0-51.0 [facility] Comment on above: Order Comment: Speci men Type: ARTERIAL BLOOD SPECIMENOrdering Facility: [facility] Address: [address] [place] [address] Performed By: #### A LLMG ####[facility] LABIA [id number] [place] [address] [place] Hemoglobin (Bld) [Mass/Vol] 8.5 g/dL Low 13.0-17.0 [facility] Comment on above: Order Comment: Speci men Type: ARTERIAL BLOOD SPECIMENOrdering Facility: [facility] Address: [address] [place] [address] Performed By: #### A LLMG ####[facility] LABIA [id number] [place] [address] [place] Lactate [Moles/Vol] 1.2 mmol/L Normal 0.5-2.2 [facility] Comment on above: Order Comment: Speci men Type: ARTERIAL BLOOD SPECIMENOrdering Facility: [facility] Address: [address] [place] [address] Performed By: #### A LLMG ####[facility] LABIA [id number] [place] [address] [place] Magnesium [Moles/Vol] 0.56 mmol/L Normal 0.45-0.[address] [facility] Comment on above: Order Comment: Speci men Type: ARTERIAL BLOOD SPECIMENOrdering Facility: [facility] Address: [address] [place] [address] Performed By: #### A LLMG ####[facility] LABCLIA [id number] [address] [place] [address] [place] Methemoglobin (Bld) [Mass fraction] 1.7 % High 0.0-1.5 [facility] Comment on above: Order Comment: Speci men Type: ARTERIAL BLOOD SPECIMENOrdering Facility: [facility] Address: [address] [place] [address] Performed By: #### A LLMG ####[facility] LABCLIA [id number] [address] [place] [address] [place] Oxygen (Bld) [Partial pressure] 85 mm Hg Normal 85-95 [facility] Comment on above: Order Comment: Speci men Type: ARTERIAL BLOOD SPECIMENOrdering Facility: [facility] Address: [address] [place] [address] Performed By: #### A LLMG ####[facility] LABCLIA [id number] [address], [facility]95 [place] Oxygen adjusted to patient's actual temperature (Bld) [Partial pressure] 85 mmHg Normal 85-95 [facility] Comment on above: Order Comment: Speci men Type: ARTERIAL BLOOD SPECIMENOrdering Facility: [facility] Address: [address] [place] [address] Performed By: #### A LLMG ####[facility] LABCLIA [id number] [address] [place] [address] [place] Oxyhemoglobin (BldA) [Mass fraction] 94 % Low 95-98 [facility] Comment on above: Order Comment: Speci men Type: ARTERIAL BLOOD SPECIMENOrdering Facility: [facility] Address: [address] [place] [address] Performed By: #### A LLMG ####[facility] LABCLIA [id number] [address] [address] [place] pH (Bld) 7.45 [pH] Normal 7.35-7.45 [facility] Comment on above: Order Comment: Speci men Type: ARTERIAL BLOOD SPECIMENOrdering Facility: [facility] Address: [address] [place] [address] Performed By: #### A LLMG ####[facility] LABCLIA [id number] [address] [address] [place] pH adjusted to patient's actual temperature (Bld) 7.45 Normal 7.35-7.45 [facility] Comment on above: Order Comment: Speci men Type: ARTERIAL BLOOD SPECIMENOrdering Facility: [facility] Address: [address] [place] [address] Performed By: #### A LLMG ####[facility] LABIA [id number] [place] [address] [place] Potassium [Moles/Vol] 4.7 mmol/L Normal 3.5-5.0 [facility] Comment on above: Order Comment: Speci men Type: ARTERIAL BLOOD SPECIMENOrdering Facility: [facility] Address: [address] [place] [address] Performed By: #### A LLMG ####[facility] LABIA [id number] [place] [address] [place] Sodium [Moles/Vol] 132 mmol/L Low 136-144 [facility] Comment on above: Order Comment: Speci men Type: ARTERIAL BLOOD SPECIMENOrdering Facility: [facility] Address: [address] [place] [address] Performed By: #### A LLMG ####[facility] LABIA [id number] [place] [id number] [place] CBC panel Auto (Bld)on 10-23 Erythrocyte distribution width (RBC) [Ratio] 17.4 % High 11.5-15.0 [facility] Comment on above: Order Comment: Speci men Type: BLOOD SPECIMENOrdering Facility: [facility] Address: [address] [place] [address] Performed By: #### 5 8410-2 ####[facility] LABCLIA [id number] [place] [address] [place] Hematocrit (Bld) [Volume fraction] 23.2 % Low 39.0-51.0 [facility] Comment on above: Order Comment: Speci men Type: BLOOD SPECIMENOrdering Facility: [facility] Address: [address] [place] [address] Performed By: #### 5 8410-2 ####[facility] LABIA [id number] [place] [address] [place] Hemoglobin (Bld) [Mass/Vol] 7.2 g/dL Low 13.0-17.0 [facility] Comment on above: Order Comment: Speci men Type: BLOOD SPECIMENOrdering Facility: [facility] Address: [address] [place] [address] Performed By: #### 5 8410-2 ####[facility] LABIA [id number] [place] [address] [place] MCH (RBC) [Entitic mass] 31.7 pg Normal 26.0-34.0 [facility] Comment on above: Order Comment: Speci men Type: BLOOD SPECIMENOrdering Facility: [facility] Address: [address] [place] [address] Performed By: #### 5 8410-2 ####[facility] LABIA [id number] [place] [address] [place] MCHC (RBC) [Mass/Vol] 31.0 g/dL Normal 30.5-36.0 [facility] Comment on above: Order Comment: Speci men Type: BLOOD SPECIMENOrdering Facility: [facility] Address: [address] [place] [address] Performed By: #### 5 8410-2 ####[facility] LABCLIA [id number] [place] [address] [place] MCV (RBC) [Entitic vol] 102.2 fL High 80.0-100.0 [facility] Comment on above: Order Comment: Speci men Type: BLOOD SPECIMENOrdering Facility: [facility] Address: [address] [place] [address] Performed By: #### 5 8410-2 ####[facility] LABCLIA [id number] [place] [address] [place] Nucleated RBC (Bld) [#/Vol] 10*3/uL Normal <0.01 [facility] Comment on above: Order Comment: Speci men Type: BLOOD SPECIMENOrdering Facility: [facility] Address: [address] [place] [address] Performed By: #### 5 8410-2 ####[facility] LABIA [id number] [place] [address] [place] Platelet mean volume (Bld) [Entitic vol] 11.7 fL Normal 9.0-12.7 [facility] Comment on above: Order Comment: Speci men Type: BLOOD SPECIMENOrdering Facility: [facility] Address: [address] [place] [address] Performed By: #### 5 8410-2 ####[facility] LABIA [id number] [place] [address] [place] Platelets (Bld) [#/Vol] 86 10*3/uL Low 150-400 [facility] Comment on above: Order Comment: Speci men Type: BLOOD SPECIMENOrdering Facility: [facility] Address: [address] [place] [address] Result Comment: No c lot detected.Results checked and verified. Performed By: #### 5 8410-2 ####[facility] LABCLIA [id number] [place] [address] [place] RBC (Bld) [#/Vol] 2.27 10*6/uL Low 4.20-6.00 [facility] Comment on above: Order Comment: Speci men Type: BLOOD SPECIMENOrdering Facility: [facility] Address: [address] [place] [address] Performed By: #### 5 8410-2 ####[facility] LABCLIA [id number] [place] [address] [place] WBC (Bld) [#/Vol] 5.50 10*3/uL Normal 3.70-11.00 [facility] Comment on above: Order Comment: Speci men Type: BLOOD SPECIMENOrdering Facility: [facility] Address: [address] [place] [address] Performed By: #### 5 8410-2 ####[facility] LABCLIA [id number] [place] [address] [place] Erythrocyte distribution width (RBC) [Ratio] 17.5 % High 11.5-15.0 [facility] Comment on above: Order Comment: Speci men Type: BLOOD SPECIMENOrdering Facility: [facility] Address: [address] [place] [address] Performed By: #### 5 8410-2 ####[facility] LABCLIA [id number] [place] [address] [place] Hematocrit (Bld) [Volume fraction] 24.2 % Low 39.0-51.0 [facility] Comment on above: Order Comment: Speci men Type: BLOOD SPECIMENOrdering Facility: [facility] Address: [address] [place] [address] Performed By: #### 5 8410-2 ####[facility] LABCLIA [id number] [place] [address] [place] Hemoglobin (Bld) [Mass/Vol] 8.0 g/dL Low 13.0-17.0 [facility] Comment on above: Order Comment: Speci men Type: BLOOD SPECIMENOrdering Facility: [facility] Address: [address] [place] [address] Performed By: #### 5 8410-2 ####[facility] LABIA [id number] [place] [address] [place] [facility] MCH (RBC) [Entitic mass] 32.0 pg Normal 26.0-34.0 [facility] Comment on above: Order Comment: Speci men Type: BLOOD SPECIMENOrdering Facility: [facility] Address: [address] [place] [address] Performed By: #### 5 8410-2 ####[facility] LABIA [id number] [place] [address] [place] MCHC (RBC) [Mass/Vol] 33.1 g/dL Normal 30.5-36.0 [facility] Comment on above: Order Comment: Speci men Type: BLOOD SPECIMENOrdering Facility: [facility] Address: [address] [place] [address] Performed By: #### 5 8410-2 ####[facility] LABIA [id number] [place] [address] [place] MCV (RBC) [Entitic vol] 96.8 fL Normal 80.0-100.0 [facility] Comment on above: Order Comment: Speci men Type: BLOOD SPECIMENOrdering Facility: [facility] Address: [address] [place] [address] Performed By: #### 5 8410-2 ####[facility] LABIA [id number] [address] [place] Nucleated RBC (Bld) [#/Vol] 10*3/uL Normal <0.01 [facility] Comment on above: Order Comment: Speci men Type: BLOOD SPECIMENOrdering Facility: [facility] Address: [address] [place] [address] Performed By: #### 5 8410-2 ####[facility] LABCLIA [id number] [place] [address] [place] Platelet mean volume (Bld) [Entitic vol] 12.3 fL Normal 9.0-12.7 [facility] Comment on above: Order Comment: Speci men Type: BLOOD SPECIMENOrdering Facility: [facility] Address: [address] [place] [address] Performed By: #### 5 8410-2 ####[facility] LABCLIA [id number] [place] [address] [place] Platelets (Bld) [#/Vol] 110 10*3/uL Low 150-400 [facility] Comment on above: Order Comment: Speci men Type: BLOOD SPECIMENOrdering Facility: [facility] Address: [address] [place] [address] Result Comment: No c lot detected.Results checked and verified. Performed By: #### 5 8410-2 ####[facility] LABCLIA [id number] [place] [address] [place] RBC (Bld) [#/Vol] 2.50 10*6/uL Low 4.20-6.00 [facility] Comment on above: Order Comment: Speci men Type: BLOOD SPECIMENOrdering Facility: [facility] Address: [address] [place] [address] Performed By: #### 5 8410-2 ####[facility] LABCLIA [id number] [place] [address] [place] WBC (Bld) [#/Vol] 6.38 10*3/uL Normal 3.70-11.00 [facility] Comment on above: Order Comment: Speci men Type: BLOOD SPECIMENOrdering Facility: [facility] Address: [address] [place] [address] Performed By: #### 5 8410-2 ####[facility] LABCLIA [id number] [place] [id number] [place] Comprehensive metabolic 2000 panelon 10-23-2024 Albumin [Mass/Vol] 2.3 g/dL Low 3.9-4.9 [facility] Comment on above: Order Comment: Speci men Type: BLOOD SPECIMENOrdering Facility: [facility] Address: [address] [place], [place] [address] Performed By: #### 2 4323-8, 74574-2, 4542-7, 2777-1 ####[facility] LABCLIA [id number] [place] [id number] [place] ALP [Catalytic activity/Vol] 74 U/L Normal 38-113 [facility] Comment on above: Order Comment: Speci men Type: BLOOD SPECIMENOrdering Facility: [facility] Address: [address] [place] [address] Performed By: #### 2 4323-8, 41767-8, 4542-7, 2777-1 ####[facility] LABCLIA [id number] [place] [address] [place] ALT [Catalytic activity/Vol] 13 U/L Normal 10-54 [facility] Comment on above: Order Comment: Speci men Type: BLOOD SPECIMENOrdering Facility: [facility] Address: [address] [place] [address] Performed By: #### 2 4323-8, 79647-1, 4542-7, 2777-1 ####[facility] LABCLIA [id number] [place] [id number] [place] Anion gap [Moles/Vol] 9 mmol/L Normal 8-15 [facility] Comment on above: Order Comment: Speci men Type: BLOOD SPECIMENOrdering Facility: [facility] Address: [address] [place], [place] [address] Performed By: #### 2 4323-8, 29421-3, 4542-7, 2777-1 ####[facility] LABCLIA [id number] [address] [address] [place] AST [Catalytic activity/Vol] 29 U/L Normal 14-40 [facility] Comment on above: Order Comment: Speci men Type: BLOOD SPECIMENOrdering Facility: [facility] Address: [address] [place] [address] Performed By: #### 2 4323-8, 83284-1, 4542-7, 2777-1 ####[facility] LABCLIA [id number] [place] [address] [place] Bilirubin [Mass/Vol] 0.2 mg/dL Normal 0.2-1.3 [facility] Comment on above: Order Comment: Speci men Type: BLOOD SPECIMENOrdering Facility: [facility] Address: [address] [place] [address] Performed By: #### 2 4323-8, 03223-5, 4542-7, 2777-1 ####[facility] LABCLIA [id number] [place] [address] [place] Calcium [Mass/Vol] 7.9 mg/dL Low 8.5-10.2 [facility] Comment on above: Order Comment: Speci men Type: BLOOD SPECIMENOrdering Facility: [facility] Address: [address] [place] [address] Performed By: #### 2 4323-8, 59534-1, 4542-7, 2777-1 ####[facility] LABCLIA [id number] [place] [address] [place] Chloride [Moles/Vol] 99 mmol/L Normal 98-107 [facility] Comment on above: Order Comment: Speci men Type: BLOOD SPECIMENOrdering Facility: [facility] Address: [address] [place] [address] Performed By: #### 2 4323-8, 34748-7, 4542-7, 2777-1 ####[facility] LABCLIA [id number] [place] [id number] [place] CO2 [Moles/Vol] 26 mmol/L Normal 22-30 [facility] Comment on above: Order Comment: Speci men Type: BLOOD SPECIMENOrdering Facility: [facility] Address: [address] [place] [address] Performed By: #### 2 4323-8, 48739-7, 4542-7, 2777-1 ####[facility] LABCLIA [id number] [place] [id number] [place] Creatinine [Mass/Vol] 1.39 mg/dL High 0.73-1.22 [facility] Comment on above: Order Comment: Speci men Type: BLOOD SPECIMENOrdering Facility: [facility] Address: [address] [place] [address] Performed By: #### 2 4323-8, 47232-6, 4542-7, 2777- ####[facility] LABIA [id number] [place] [address] [place] eGFRcr SerPlBld CKD-EPI 2020 57 mL/min/1.73m??? Low >=60 [facility] Comment on above: Order Comment: Speci men Type: BLOOD SPECIMENOrdering Facility: [facility] Address: [address] [place] [address] Result Comment: Gurwinder mated Glomerular Filtration Rate [...] actual GFR. Performed By: #### 2 4323-8, 34218-8, 4542-7, 2777-1 ####[facility] LABCLIA [id number] [address] [address] [place] Glucose [Mass/Vol] 212 mg/dL High 74-99 [facility] Comment on above: Order Comment: Speci men Type: BLOOD SPECIMENOrdering Facility: [facility] Address: [address] [place] [address] Result Comment: The [place] [employer] (ADA) provides guidance for cutoff values for fasting glucose and random glucose. The ADA defines fasting as no caloric intake for at least 8 hours. Fasting plasma glucose results between 100 to 125 mg/dL indicate increased risk for diabetes (prediabetes).Fasting plasma glucose results greater than or equal to 126 mg/dL meet the criteria for diagnosis of diabetes. In the absence of unequivocal hyperglycemia, results should be confirmed by repeat testing. In a patient with classic symptoms of hyperglycemia or hyperglycemic crisis, random plasma glucose results greater than or equal to 200 mg/dL meet the criteria for diagnosis of diabetes.Reference: Standards of Medical Care in Diabetes 2016, [place] [employer]. Diabetes Care. 2016.39(Suppl 1). Performed By: #### 2 4323-8, 53043-7, 4542-7, 2777-1 ####[facility] LABCLIA [id number] [place] [address] [place] Potassium [Moles/Vol] 5.0 mmol/L Normal 3.7-5.1 [facility] Comment on above: Order Comment: Gini nowak Type: BLOOD SPECIMENOrdering Facility: [facility] Address: [address] [place] [address] Performed By: #### 2 4323-8, 51483-9, 4542-7, 2777-1 ####[facility] LABCLIA [id number] [place] [address] [place] Protein [Mass/Vol] 4.5 g/dL Low 6.3-8.0 [facility] Comment on above: Order Comment: Gini nowak Type: BLOOD SPECIMENOrdering Facility: [facility] Address: [address] [place] [address] Performed By: #### 2 4323-8, 41178-8, 4542-7, 2777-1 ####[facility] LABCLIA [id number] [place] [id number] [place] Sodium [Moles/Vol] 134 mmol/L Low 136-144 [facility] Comment on above: Order Comment: Speci men Type: BLOOD SPECIMENOrdering Facility: [facility] Address: [address] [place] [address] Performed By: #### 2 4323-8, 87407-6, 4542-7, 277-1 ####[facility] LABCLIA [id number] [place] [address] [place] Urea nitrogen [Mass/Vol] 19 mg/dL Normal 9-24 [facility] Comment on above: Order Comment: Speci men Type: BLOOD SPECIMENOrdering Facility: [facility] Address: [address] [place] [address] Performed By: #### 2 4323-8, 26294-3, 4542-7, 2776-1 ####[facility] LABCLIA [id number] [place] [address] [place] Albumin [Mass/Vol] 2.6 g/dL Low 3.9-4.9 [facility] Comment on above: Order Comment: Speci men Type: BLOOD SPECIMENOrdering Facility: [facility] Address: [address] [place] [address] Performed By: #### 1 9123-9, 2777-1, 86683-8 ####[facility] LABCLIA [id number] [place] [address] [place] ALP [Catalytic activity/Vol] 90 U/L Normal 38-113 [facility] Comment on above: Order Comment: Speci men Type: BLOOD SPECIMENOrdering Facility: [facility] Address: [address] [place] [address] Performed By: #### 1 9123-9, 2777-1, 97452-7 ####[facility] LABCLIA [id number] [place] [id number] [place] ALT [Catalytic activity/Vol] 12 U/L Normal 10-54 [facility] Comment on above: Order Comment: Speci men Type: BLOOD SPECIMENOrdering Facility: [facility] Address: [address] [place] [address] Performed By: #### 1 9123-9, 27708-08, 41120-9 ####[facility] LABCLIA [id number] [facility] [place] [id number] [place] Anion gap [Moles/Vol] 9 mmol/L Normal 8-15 [facility] Comment on above: Order Comment: Speci men Type: BLOOD SPECIMENOrdering Facility: [facility] Address: [address] [place] [address] Performed By: #### 1 9123-9, 27708-08, 92644-6 ####[facility] LABCLIA [id number] [place] [address] [place] AST [Catalytic activity/Vol] 28 U/L Normal 14-40 [facility] Comment on above: Order Comment: Speci men Type: BLOOD SPECIMENOrdering Facility: [facility] Address: [address] [place] [address] Performed By: #### 1 9123-9, 27708-08, 64682-8 ####[facility] LABCLIA [id number] [address] [address] [place] Bilirubin [Mass/Vol] 0.3 mg/dL Normal 0.2-1.3 [facility] Comment on above: Order Comment: Speci men Type: BLOOD SPECIMENOrdering Facility: [facility] Address: [address] [place], [place] [address] Performed By: #### 1 9123-9, 27708-08, 59932-5 ####[facility] LABCLIA [id number] [facility] [address] [address] [place] Calcium [Mass/Vol] 8.2 mg/dL Low 8.5-10.2 [facility] Comment on above: Order Comment: Speci men Type: BLOOD SPECIMENOrdering Facility: [facility] Address: [address] [place] [address] Performed By: #### 1 9123-9, 27708-08, 16851-5 ####[facility] LABCLIA [id number] [facility] [address] [address] [place] Chloride [Moles/Vol] 99 mmol/L Normal 98-107 [facility] Comment on above: Order Comment: Speci men Type: BLOOD SPECIMENOrdering Facility: [facility] Address: [address] [place], [place] [address] Performed By: #### 1 9123-9, 27708-08, ####[facility] LABCLIA [id number] [address] [address] [place] CO2 [Moles/Vol] 27 mmol/L Normal 22-30 [facility] Comment on above: Order Comment: Speci men Type: BLOOD SPECIMENOrdering Facility: [facility] Address: [address] [place], [place] [address] Performed By: #### 1 9123-9, 27708-08, ####[facility] LABCLIA [id number] [address] [address] [place] Creatinine [Mass/Vol] 1.26 mg/dL High 0.73-1.22 [facility] Comment on above: Order Comment: Speci men Type: BLOOD SPECIMENOrdering Facility: [facility] Address: [address] [place], [place] [address] Performed By: #### 1 9123-9, 27708-08, 86115-1 ####[facility] LABCLIA [id number] [address] [address] [place] eGFRcr SerPlBld CKD-EPI 2020 64 mL/min/1.73m??? Normal >=60 [facility] Comment on above: Order Comment: Speci men Type: BLOOD SPECIMENOrdering Facility: [facility] Address: [address] [id number] Result Comment: Gurwinder mated Glomerular Filtration Rate [...] accurately reflect actual GFR. Performed By: #### 1 9123-9, 2777-, 83276-5 ####[facility] [id number] [place] [address] [place] Glucose [Mass/Vol] 95 mg/dL Normal 74-99 [facility] Comment on above: Order Comment: Gini nowak Type: BLOOD SPECIMENOrdering Facility: [facility] Address: [address] [place] [address] Result Comment: The [place] [employer] (ADA) provides guidance for cutoff values for fasting glucose and random glucose. The ADA defines fasting as no caloric intake for at least 8 hours. Fasting plasma glucose results between 100 to 125 mg/dL indicate increased risk for diabetes (prediabetes).Fasting plasma glucose results greater than or equal to 126 mg/dL meet the criteria for diagnosis of diabetes. In the absence of unequivocal hyperglycemia, results should be confirmed by repeat testing. In a patient with classic symptoms of hyperglycemia or hyperglycemic crisis, random plasma glucose results greater than or equal to 200 mg/dL meet the criteria for diagnosis of diabetes.Reference: Standards of Medical Care in Diabetes 2016, [place] [employer]. Diabetes Care. 2016.39(Suppl 1). Performed By: #### 1 9123-9, 2777-, 99296-1 ####[facility]IA [id number] [place] [id number] [place] Potassium [Moles/Vol] 4.9 mmol/L Normal 3.7-5.1 [facility] Comment on above: Order Comment: Gini nowak Type: BLOOD SPECIMENOrdering Facility: [facility] Address: [address] [id number] Performed By: #### 1 9123-9, 2777-1, 12435-7 ####[facility] [id number] [place] [id number] [place] Protein [Mass/Vol] 5.0 g/dL Low 6.3-8.0 [facility] Comment on above: Order Comment: Speci men Type: BLOOD SPECIMENOrdering Facility: [facility] Address: [address] [place] [address] Performed By: #### 1 9123-9, 2777-1, 68337-6 ####[facility] [id number] [place] [address] [place] Sodium [Moles/Vol] 135 mmol/L Low 136-144 [facility] Comment on above: Order Comment: Speci men Type: BLOOD SPECIMENOrdering Facility: [facility] Address: [address] [place] [address] Performed By: #### 1 9123-9, 2777-1, 42304-4 ####[facility] [id number] [place] [id number] [place] Urea nitrogen [Mass/Vol] 20 mg/dL Normal 9-24 [facility] Comment on above: Order Comment: Speci men Type: BLOOD SPECIMENOrdering Facility: [facility] Address: [address] [place] [address] Performed By: #### 1 9123-9, 2777-1, 88420-7 ####[facility] [id number] [place] [id number] [place] ECG COMPLETEon 10-23-2024 ECG COMPLETE Normal [facility] Fact Xa PPP-aCncon Coagulation factor X activated act Coag Qn (PPP) <0.10 Normal <0.10 [facility] Comment on above: Order Comment: Speci men Type: BLOOD SPECIMENOrdering Facility: [facility] Address: [address] [place] [address] Result Comment: The recommended therapeutic range for treatment of venous and arterial thrombosis with intravenous unfractionated heparin is an anti Xa activity level of 0.3 to 0.7 IU/mL. In patients with concomitant therapy with thrombolytic agents and/or platelet glycoprotein IIb/IIIa antagonists, the recommended therapeutic range is an anti Xa activity level of 0.2 to 0.5 IU/mL. Performed By: #### 3 217-7 ####[facility] [id number] [place] [address] [place] Coagulation factor X activated act Coag Qn (PPP) 0.44 IU/mL High <0.10 [facility] Comment on above: Order Comment: Gini nowak Type: BLOOD SPECIMENOrdering Facility: [facility] Address: [address] [place] [address] Result Comment: The recommended therapeutic range for treatment of venous and arterial thrombosis with intravenous unfractionated heparin is an anti Xa activity level of 0.3 to 0.7 IU/mL. In patients with concomitant therapy with thrombolytic agents and/or platelet glycoprotein IIb/IIIa antagonists, the recommended therapeutic range is an anti Xa activity level of 0.2 to 0.5 IU/mL. Performed By: #### 3 4528-0, 3217-7 ####[facility] [id number] [place] [address] [place] Gas + CO Pnl BldVon 10-24-19 25 Body temperature 98.42 [degF] Normal [facility] Comment on above: Order Comment: Gini nowak Type: VENOUS BLOOD SPECIMENOrdering Facility: [facility] Address: [address] [place] [address] Performed By: #### 2 4344-4 ####[facility] [id number] [place] [address] [place] Order Comment: Gini nowak Type: ARTERIAL BLOOD SPECIMENOrdering Facility: [facility] Address: [address], [place] [address] Performed By: #### A LLBG ####[facility] LABCLIA [id number] [address] [place] [address] [place] HCO3 (Bld) [Moles/Vol] 29 mmol/L High 22-26 [facility] Comment on above: Order Comment: Speci men Type: VENOUS BLOOD SPECIMENOrdering Facility: [facility] Address: [address] [place] [address] Performed By: #### 2 4344-4 ####[facility] LABCLIA [id number] [address] [place] [address] [place] Order Comment: Speci men Type: ARTERIAL BLOOD SPECIMENOrdering Facility: [facility] Address: [address] [place] [address] Performed By: #### A LLBG ####[facility] LABCLIA [id number] [place] [address] [place] LITERS 3 Liters/min Normal [facility] Comment on above: Order Comment: Speci men Type: VENOUS BLOOD SPECIMENOrdering Facility: [facility] Address: [address] [place] [address] Performed By: #### 2 4344-4 ####[facility] LABCLIA [id number] [address] [address] [place] Order Comment: Speci men Type: ARTERIAL BLOOD SPECIMENOrdering Facility: [facility] Address: [address] [place] [address] Performed By: #### A LLBG ####[facility] LABCLIA [id number] [place] [id number] [place] O2 THERAPY NC = Nasal Cannula Normal [facility] Comment on above: Order Comment: Speci men Type: VENOUS BLOOD SPECIMENOrdering Facility: [facility] Address: [address] [place], [place] [address] Performed By: #### 2 4344-4 ####[facility] LABCLIA [id number] [facility]K [address] [place] [address] [place] Order Comment: Speci men Type: ARTERIAL BLOOD SPECIMENOrdering Facility: [facility] Address: [address] [place] [address] Performed By: #### A LLBG ####[facility]CLIA [id number] [facility] [address] [place] [address] [place] Body temperature 98.6 [degF] Normal [facility] Comment on above: Order Comment: Speci men Type: VENOUS BLOOD SPECIMENOrdering Facility: [facility] Address: [address] [place] [address] Performed By: #### 2 4344-4 ####[facility] LABCLIA [id number] [address], [address] [place] Order Comment: Speci men Type: ARTERIAL BLOOD SPECIMENOrdering Facility: [facility] Address: [address] [place] [address] Performed By: #### A LLBG ####[facility] LABCLIA [id number] [place] [address] [place] Glucose [Mass/Vol] 79 mg/dL Normal 60-105 [facility] Comment on above: Order Comment: Speci men Type: VENOUS BLOOD SPECIMENOrdering Facility: [facility] Address: [address] [place] [address] Performed By: #### 2 4344-4 ####[facility] LABCLIA [id number] [facility] [address] [place] [address] [place] Order Comment: Speci men Type: ARTERIAL BLOOD SPECIMENOrdering Facility: [facility] Address: [address] [place] [address] Performed By: #### A LLBG ####[facility] LABCLIA [id number] [facility] [address] [address] [place] HCO3 (Bld) [Moles/Vol] 30 mmol/L High 22-26 [facility] Comment on above: Order Comment: Speci men Type: VENOUS BLOOD SPECIMENOrdering Facility: [facility] Address: [address] [phone] Performed By: #### 2 4344-4 ####[facility] LABCLIA [id number] [facility] [address] [place] [address] [place] Order Comment: Speci men Type: ARTERIAL BLOOD SPECIMENOrdering Facility: [facility] Address: [address] [place], [place] [address] Performed By: #### A LLBG ####[facility] LABCLIA [id number] [address] [place] [address] [place] LITERS 3 Liters/min Normal [facility] Comment on above: Order Comment: Speci men Type: VENOUS BLOOD SPECIMENOrdering Facility: [facility] Address: [address] [place], [place] [address] Performed By: #### 2 4344-4 ####[facility] LABCLIA [id number] [address] [place] [address] [place] Order Comment: Speci men Type: ARTERIAL BLOOD SPECIMENOrdering Facility: [facility] Address: [address] [place], [place] [address] Performed By: #### A LLBG ####[facility]CLIA [id number] [facility] [address] [place] [address] [place] O2 THERAPY NC = Nasal Cannula Normal [facility] Comment on above: Order Comment: Speci men Type: VENOUS BLOOD SPECIMENOrdering Facility: [facility] Address: [address] [place] [address] Performed By: #### 2 4344-4 ####[facility] LABCLIA [id number] [facility] [address] [place] [address] [place] Order Comment: Speci men Type: ARTERIAL BLOOD SPECIMENOrdering Facility: [facility] Address: [address] [place], [place] [address] Performed By: #### A LLBG ####[facility] [id number] [place] [address] [place] Gas and Carbon monoxide pane l (BldV)on 10-23-2024 Base excess Calc (BldV) [Moles/Vol] 4 mmol/L High 0-2 [facility] Comment on above: Order Comment: Speci men Type: VENOUS BLOOD SPECIMENOrdering Facility: [facility] Address: [address] [place] [address] Performed By: #### 2 4344-4 ####[facility] [id number] [place] [address] [place] Body temperature 99.14 [degF] Normal [facility] Comment on above: Order Comment: Speci men Type: VENOUS BLOOD SPECIMENOrdering Facility: [facility] Address: [address] [place] [address] Performed By: #### 2 4344-4 ####[facility] [id number] [place] [address] [place] Calcium.ionized (Bld) [Mass/Vol] 1.14 mmol/L Normal 1.08-1.30 [facility] Comment on above: Order Comment: Speci men Type: VENOUS BLOOD SPECIMENOrdering Facility: [facility] Address: [address] [place] [address] Performed By: #### 2 4344-4 ####[facility] [id number] [place] [address] [place] Calcium.ionized adjusted to pH 7.4 (BldA) [Moles/Vol] 1.13 mmol/L Normal 1.08-1.30 [facility] Comment on above: Order Comment: Speci men Type: VENOUS BLOOD SPECIMENOrdering Facility: [facility] Address: [address] [place] [address] Performed By: #### 2 4344-4 ####[facility] [id number] [place] [id number] [place] Carboxyhemoglobin (BldV) [Mass fraction] 1.5 % Normal 0.0-2.0 [facility] Comment on above: Order Comment: Speci men Type: VENOUS BLOOD SPECIMENOrdering Facility: [facility] Address: [address] [place] [address] Result Comment: Carb oxyhemoglobin Reference Range for Smokers: 2.0-8.0% Performed By: #### 2 4344-4 ####[facility] LABCLIA [id number] [place] [address] [place] CO2 (BldV) [Partial pressure] 51 mm[Hg] Normal 42-55 [facility] Comment on above: Order Comment: Speci men Type: VENOUS BLOOD SPECIMENOrdering Facility: [facility] Address: [address] [place] [address] Performed By: #### 2 4344-4 ####[facility] [id number] [place] [address] [place] CO2 adjusted to patient's actual temperature (BldV) [Partial pressure] 52 mmHg Normal 42-55 [facility] Comment on above: Order Comment: Speci men Type: VENOUS BLOOD SPECIMENOrdering Facility: [facility] Address: [address] [place] [address] Performed By: #### 2 4344-4 ####[facility] LABCLIA [id number] [place] [id number] [place] Glucose [Mass/Vol] 206 mg/dL High 60-105 [facility] Comment on above: Order Comment: Speci men Type: VENOUS BLOOD SPECIMENOrdering Facility: [facility] Address: [address] [place] [address] Performed By: #### 2 4344-4 ####[facility] [id number] [place] [id number] [place] HCO3 (Bld) [Moles/Vol] 29 mmol/L High 24-[address] [facility] Comment on above: Order Comment: Speci men Type: VENOUS BLOOD SPECIMENOrdering Facility: [facility] Address: [address] [place] [address] Performed By: #### 2 4344-4 ####[facility] LABCLIA [id number] [place] [address] [place] Hematocrit (Bld) [Volume fraction] 22.0 % Low 39.0-51.0 [facility] Comment on above: Order Comment: Speci men Type: VENOUS BLOOD SPECIMENOrdering Facility: [facility] Address: [address] [place] [address] Performed By: #### 2 4344-4 ####[facility] LABCLIA [id number] [place] [address] [place] Hemoglobin (Bld) [Mass/Vol] 7.0 g/dL Low 13.0-17.0 [facility] Comment on above: Order Comment: Speci men Type: VENOUS BLOOD SPECIMENOrdering Facility: [facility] Address: [address] [place] [address] Performed By: #### 2 4344-4 ####[facility] [id number] [place] [address] [place] Lactate [Moles/Vol] 0.5 mmol/L Normal 0.5-2.2 [facility] Comment on above: Order Comment: Speci men Type: VENOUS BLOOD SPECIMENOrdering Facility: [facility] Address: [address] [place] [address] Performed By: #### 2 4344-4 ####[facility] [id number] [place] [address] [place] LITERS 5 Liters/min Normal [facility] Comment on above: Order Comment: Speci men Type: VENOUS BLOOD SPECIMENOrdering Facility: [facility] Address: [address] [place] [address] Performed By: #### 2 4344-4 ####[facility] LABCLIA [id number] [address] [address] [place] Methemoglobin (Bld) [Mass fraction] 1.3 % Normal 0.0-1.5 [facility] Comment on above: Order Comment: Speci men Type: VENOUS BLOOD SPECIMENOrdering Facility: [facility] Address: [address] [place], [place] [address] Performed By: #### 2 4344-4 ####[facility] LABCLIA [id number] [place] [id number] [place] O2 THERAPY NC = Nasal Cannula Normal [facility] Comment on above: Order Comment: Speci men Type: VENOUS BLOOD SPECIMENOrdering Facility: [facility] Address: [address] [place] [address] Performed By: #### 2 4344-4 ####[facility]CLIA [id number] [address] [address] [place] Oxygen (BldV) [Partial pressure] 41 mm[Hg] Normal 35-45 [facility] Comment on above: Order Comment: Speci men Type: VENOUS BLOOD SPECIMENOrdering Facility: [facility] Address: [address] [place], [place] [address] Performed By: #### 2 4344-4 ####[facility] LABCLIA [id number] [address] [address] [place] Oxygen adjusted to patient's actual temperature (BldV) [Partial pressure] 42 mmHg Normal 35-45 [facility] Comment on above: Order Comment: Speci men Type: VENOUS BLOOD SPECIMENOrdering Facility: [facility] Address: [address] [place], [place] [address] Performed By: #### 2 4344-4 ####[facility]CLIA [id number] [address] [address] [place] Oxygen saturation in Venous blood 66 % Normal 60-85 [facility] Comment on above: Order Comment: Speci men Type: VENOUS BLOOD SPECIMENOrdering Facility: [facility] Address: [facility] [place] [address] Performed By: #### 2 4344-4 ####[facility] LABCLIA [id number] [address] [address] [place] Oxyhemoglobin (BldV) [Mass fraction] 64 % Normal 60-85 [facility] Comment on above: Order Comment: Speci men Type: VENOUS BLOOD SPECIMENOrdering Facility: [facility] Address: [address] [place] [address] Performed By: #### 2 4344-4 ####[facility]CLIA [id number] [address] [address] [place] pH (BldV) 7.38 [pH] Normal 7.32-7.42 [facility] Comment on above: Order Comment: Speci men Type: VENOUS BLOOD SPECIMENOrdering Facility: [facility] Address: [address] [place] [address] Performed By: #### 2 4344-4 ####[facility]CLIA [id number] [address] [address] [place] pH adjusted to patient's actual temperature (BldV) 7.37 Normal 7.32-7.42 [facility] Comment on above: Order Comment: Speci men Type: VENOUS BLOOD SPECIMENOrdering Facility: [facility] Address: [address] [place], [place] [address] Performed By: #### 2 4344-4 ####[facility] [id number] [address] [address] [place] Potassium [Moles/Vol] 4.6 mmol/L Normal 3.5-5.0 [facility] Comment on above: Order Comment: Speci men Type: VENOUS BLOOD SPECIMENOrdering Facility: [facility] Address: [address] [place] [address] Performed By: #### 2 4344-4 ####[facility] LABCLIA [id number] [place] [address] [place] Sodium [Moles/Vol] 135 mmol/L Low 136-144 [facility] Comment on above: Order Comment: Speci men Type: VENOUS BLOOD SPECIMENOrdering Facility: [facility] Address: [address] [place] [address] Performed By: #### 2 4344-4 ####[facility] LABCLIA [id number] [place] [address] [place] Base excess Calc (BldV) [Moles/Vol] 5 mmol/L High 0-2 [facility] Comment on above: Order Comment: Speci men Type: VENOUS BLOOD SPECIMENOrdering Facility: [facility] Address: [address] [place] [address] Performed By: #### 2 4344-4 ####[facility] LABCLIA [id number] [place] [address] [place] Body temperature 97.88 [degF] Normal [facility] Comment on above: Order Comment: Speci men Type: VENOUS BLOOD SPECIMENOrdering Facility: [facility] Address: [address] [place] [address] Performed By: #### 2 4344-4 ####[facility] LABCLIA [id number] [place] [address] [place] Calcium.ionized (Bld) [Mass/Vol] 1.18 mmol/L Normal 1.08-1.30 [facility] Comment on above: Order Comment: Speci men Type: VENOUS BLOOD SPECIMENOrdering Facility: [facility] Address: [address] [place] [address] Performed By: #### 2 4344-4 ####[facility] LABCLIA [id number] [place] [id number] [place] Calcium.ionized adjusted to pH 7.4 (BldA) [Moles/Vol] 1.15 mmol/L Normal 1.08-1.30 [facility] Comment on above: Order Comment: Speci men Type: VENOUS BLOOD SPECIMENOrdering Facility: [facility] Address: [address] [place] [address] Performed By: #### 2 4344-4 ####[facility] LABCLIA [id number] [address] [place] Carboxyhemoglobin (BldV) [Mass fraction] 1.2 % Normal 0.0-2.0 [facility] Comment on above: Order Comment: Speci men Type: VENOUS BLOOD SPECIMENOrdering Facility: [facility] Address: [address] [place] [address] Result Comment: Carb oxyhemoglobin Reference Range for Smokers: 2.0-8.0% Performed By: #### 2 4344-4 ####[facility]IA [id number] [address] [place] CO2 (BldV) [Partial pressure] 56 mm[Hg] High 42-55 [facility] Comment on above: Order Comment: Speci men Type: VENOUS BLOOD SPECIMENOrdering Facility: [facility] Address: [address] [place] [address] Performed By: #### 2 4344-4 ####[facility]CLIA [id number] [address] [place] CO2 adjusted to patient's actual temperature (BldV) [Partial pressure] 55 mmHg Normal 42-55 [facility] Comment on above: Order Comment: Speci men Type: VENOUS BLOOD SPECIMENOrdering Facility: [facility] Address: [address] [place] [address] Performed By: #### 2 4344-4 ####[facility] LABCLIA [id number] [place] [id number] [place] Glucose [Mass/Vol] 102 mg/dL Normal 60-105 [facility] Comment on above: Order Comment: Speci men Type: VENOUS BLOOD SPECIMENOrdering Facility: [facility] Address: [address] [place] [address] Performed By: #### 2 4344-4 ####[facility] LABCLIA [id number] [address] [address] [place] HCO3 (Bld) [Moles/Vol] 31 mmol/L High 24-[address] [facility] Comment on above: Order Comment: Speci men Type: VENOUS BLOOD SPECIMENOrdering Facility: [facility] Address: [address] [place] [address] Performed By: #### 2 4344-4 ####[facility]IA [id number] [place] [address] [place] Hematocrit (Bld) [Volume fraction] 23.6 % Low 39.0-51.0 [facility] Comment on above: Order Comment: Speci men Type: VENOUS BLOOD SPECIMENOrdering Facility: [facility] Address: [address] [place] [address] Performed By: #### 2 4344-4 ####[facility]IA [id number] [place] [address] [place] Hemoglobin (Bld) [Mass/Vol] 7.6 g/dL Low 13.0-17.0 [facility] Comment on above: Order Comment: Speci men Type: VENOUS BLOOD SPECIMENOrdering Facility: [facility] Address: [address] [place], [place] [address] Performed By: #### 2 4344-4 ####[facility]IA [id number] [place] [id number] [place] Lactate [Moles/Vol] 0.7 mmol/L Normal 0.5-2.2 [facility] Comment on above: Order Comment: Speci men Type: VENOUS BLOOD SPECIMENOrdering Facility: [facility] Address: [address] [place] [address] [place] [address] Performed By: #### 2 4344-4 ####[facility] LABCLIA [id number] [address] [address] [place] LITERS 6 Liters/min Normal [facility] Comment on above: Order Comment: Speci men Type: VENOUS BLOOD SPECIMENOrdering Facility: [facility] Address: [address] [place] [id number] Performed By: #### 2 4344-4 ####[facility] LABCLIA [id number] [address] [place] [address] [place] Methemoglobin (Bld) [Mass fraction] 1.3 % Normal 0.0-1.5 [facility] Comment on above: Order Comment: Speci men Type: VENOUS BLOOD SPECIMENOrdering Facility: [facility] Address: [address] [address] [place], [place] [address] Performed By: #### 2 4344-4 ####[facility] LABCLIA [id number] [address] [address] [place] O2 THERAPY NC = Nasal Cannula Normal [facility] Comment on above: Order Comment: Speci men Type: VENOUS BLOOD SPECIMENOrdering Facility: [facility] Address: [address] [place] [address] Performed By: #### 2 4344-4 ####[facility] LABCLIA [id number] [address] [address] [place] Oxygen (BldV) [Partial pressure] 35 mm[Hg] Normal 35-45 [facility] Comment on above: Order Comment: Speci men Type: VENOUS BLOOD SPECIMENOrdering Facility: [facility] Address: [address] [place] [address] Performed By: #### 2 4344-4 ####[facility] LABCLIA [id number] [address] [address] [place] Oxygen adjusted to patient's actual temperature (BldV) [Partial pressure] 34 mmHg Low 35-45 [facility] Comment on above: Order Comment: Speci men Type: VENOUS BLOOD SPECIMENOrdering Facility: [facility] Address: [address] [place] [address] Performed By: #### 2 4344-4 ####[facility] LABCLIA [id number] [address] [place] [address] [place] Oxygen saturation in Venous blood 58 % Low 60-85 [facility] Comment on above: Order Comment: Speci men Type: VENOUS BLOOD SPECIMENOrdering Facility: [facility] Address: [address] [place] [address] Performed By: #### 2 4344-4 ####[facility] LABCLIA [id number] [address] [address] [place] Oxyhemoglobin (BldV) [Mass fraction] 57 % Low 60-85 [facility] Comment on above: Order Comment: Speci men Type: VENOUS BLOOD SPECIMENOrdering Facility: [facility] Address: [address] [place] [address] Performed By: #### 2 4344-4 ####[facility] LABCLIA [id number] [place] [address] [place] pH (BldV) 7.36 [pH] Normal 7.32-7.42 [facility] Comment on above: Order Comment: Speci men Type: VENOUS BLOOD SPECIMENOrdering Facility: [facility] Address: [address] [place] [address] Performed By: #### 2 4344-4 ####[facility] LABCLIA [id number] [place] [id number] [place] pH adjusted to patient's actual temperature (BldV) 7.37 Normal 7.32-7.42 [facility] Comment on above: Order Comment: Speci men Type: VENOUS BLOOD SPECIMENOrdering Facility: [facility] Address: [address] [place] [address] Performed By: #### 2 4344-4 ####[facility] LABCLIA [id number] [place] [id number] [place] Potassium [Moles/Vol] 4.4 mmol/L Normal 3.5-5.0 [facility] Comment on above: Order Comment: Speci men Type: VENOUS BLOOD SPECIMENOrdering Facility: [facility] Address: [address] [place] [address] Performed By: #### 2 4344-4 ####[facility] LABIA [id number] [place] [id number] [place] Sodium [Moles/Vol] 135 mmol/L Low 136-144 [facility] Comment on above: Order Comment: Speci men Type: VENOUS BLOOD SPECIMENOrdering Facility: [facility] Address: [address] [place] [address] Performed By: #### 2 4344-4 ####[facility] LABIA [id number] [place] [address] [place] Base excess Calc (BldV) [Moles/Vol] 0 mmol/L Normal 0-2 [facility] Comment on above: Order Comment: Speci men Type: VENOUS BLOOD SPECIMENOrdering Facility: [facility] Address: [address] [place] [address] Performed By: #### 2 4344-4 ####[facility] LABIA [id number] [place] [id number] [place] Calcium.ionized (Bld) [Mass/Vol] 1.12 mmol/L Normal 1.08-1.30 [facility] Comment on above: Order Comment: Speci men Type: VENOUS BLOOD SPECIMENOrdering Facility: [facility] Address: [address] [place] [address] Performed By: #### 2 4344-4 ####[facility] LABIA [id number] [id number] [address] [place] Calcium.ionized adjusted to pH 7.4 (BldA) [Moles/Vol] 1.08 mmol/L Normal 1.08-1.30 [facility] Comment on above: Order Comment: Speci men Type: VENOUS BLOOD SPECIMENOrdering Facility: [facility] Address: [address] [place] [address] Performed By: #### 2 4344-4 ####[facility] LABIA [id number] [place] [address] [place] Carboxyhemoglobin (BldV) [Mass fraction] 1.5 % Normal 0.0-2.0 [facility] Comment on above: Order Comment: Speci men Type: VENOUS BLOOD SPECIMENOrdering Facility: [facility] Address: [address] [place] [address] Result Comment: Carb oxyhemoglobin Reference Range for Smokers: 2.0-8.0% Performed By: #### 2 4344-4 ####[facility] LABIA [id number] [address] [place] CO2 (BldV) [Partial pressure] 49 mm[Hg] Normal 42-55 [facility] Comment on above: Order Comment: Speci men Type: VENOUS BLOOD SPECIMENOrdering Facility: [facility] Address: [address] [place] [address] Performed By: #### 2 4344-4 ####[facility] LABIA [id number] [place] [address] [place] FIO2 8 % Normal [facility] Comment on above: Order Comment: Speci men Type: VENOUS BLOOD SPECIMENOrdering Facility: [facility] Address: [address] [place] [address] Performed By: #### 2 4344-4 ####[facility] LABIA [id number] [place] [id number] [place] Glucose [Mass/Vol] 142 mg/dL High 60-105 [facility] Comment on above: Order Comment: Speci men Type: VENOUS BLOOD SPECIMENOrdering Facility: [facility] Address: [address] [place], [place] [address] Performed By: #### 2 4344-4 ####[facility] LABCLIA [id number] [address] [address] [place] HCO3 (Bld) [Moles/Vol] 25 mmol/L Normal 24-[address] [facility] Comment on above: Order Comment: Speci men Type: VENOUS BLOOD SPECIMENOrdering Facility: [facility] Address: [address] [place] [address] Performed By: #### 2 4344-4 ####[facility] LABIA [id number] [place] [address] [place] Hematocrit (Bld) [Volume fraction] 22.2 % Low 39.0-51.0 [facility] Comment on above: Order Comment: Speci men Type: VENOUS BLOOD SPECIMENOrdering Facility: [facility] Address: [address] [place] [address] Performed By: #### 2 4344-4 ####[facility] LABIA [id number] [place] [address] [place] Hemoglobin (Bld) [Mass/Vol] 7.1 g/dL Low 13.0-17.0 [facility] Comment on above: Order Comment: Speci men Type: VENOUS BLOOD SPECIMENOrdering Facility: [facility] Address: [address] [place], [place] [address] Performed By: #### 2 4344-4 ####[facility] LABIA [id number] [place] [id number] [place] Lactate [Moles/Vol] 1.1 mmol/L Normal 0.5-2.2 [facility] Comment on above: Order Comment: Speci men Type: VENOUS BLOOD SPECIMENOrdering Facility: [facility] Address: [address] [place], [place] [address] Performed By: #### 2 4344-4 ####[facility] LABCLIA [id number] [address] [place] [address] [place] Methemoglobin (Bld) [Mass fraction] 0.7 % Normal 0.0-1.5 [facility] Comment on above: Order Comment: Speci men Type: VENOUS BLOOD SPECIMENOrdering Facility: [facility] Address: [address] [place], [place] [address] Performed By: #### 2 4344-4 ####[facility] LABCLIA [id number] [facility] [address] [place] [address] [place] Oxygen (BldV) [Partial pressure] 39 mm[Hg] Normal 35-45 [facility] Comment on above: Order Comment: Speci men Type: VENOUS BLOOD SPECIMENOrdering Facility: [facility] Address: [address] [place] [address] Performed By: #### 2 4344-4 ####[facility] LABCLIA [id number] [address] [place] [address] [place] Oxygen saturation in Venous blood 72 % Normal 60-85 [facility] Comment on above: Order Comment: Speci men Type: VENOUS BLOOD SPECIMENOrdering Facility: [facility] Address: [address] [place], [place] [address] Performed By: #### 2 4344-4 ####[facility] LABCLIA [id number] [address] [place] [address] [place] Oxyhemoglobin (BldV) [Mass fraction] 70 % Normal 60-85 [facility] Comment on above: Order Comment: Speci men Type: VENOUS BLOOD SPECIMENOrdering Facility: [facility] Address: [address] [place] [address] Performed By: #### 2 4344-4 ####[facility] LABCLIA [id number] [address] [place] [address] [place] pH (BldV) 7.34 [pH] Normal 7.32-7.42 [facility] Comment on above: Order Comment: Speci men Type: VENOUS BLOOD SPECIMENOrdering Facility: [facility] Address: [address] [place] [address] Performed By: #### 2 4344-4 ####[facility] LABCLIA [id number] [place] [address] [place] Potassium [Moles/Vol] 4.0 mmol/L Normal 3.5-5.0 [facility] Comment on above: Order Comment: Speci men Type: VENOUS BLOOD SPECIMENOrdering Facility: [facility] Address: [address] [place] [address] Performed By: #### 2 4344-4 ####[facility] LABCLIA [id number] [place] [address] [place] Sodium [Moles/Vol] 136 mmol/L Normal 136-144 [facility] Comment on above: Order Comment: Speci men Type: VENOUS BLOOD SPECIMENOrdering Facility: [facility] Address: [address] [place] [address] Performed By: #### 2 4344-4 ####[facility] LABIA [id number] [place] [address] [place] Base excess Calc (BldV) [Moles/Vol] 4 mmol/L High 0-2 [facility] Comment on above: Order Comment: Speci men Type: VENOUS BLOOD SPECIMENOrdering Facility: [facility] Address: [address] [place] [address] Performed By: #### 2 4344-4 ####[facility] LABCLIA [id number] [place] [address] [place] Calcium.ionized (Bld) [Mass/Vol] 1.14 mmol/L Normal 1.08-1.30 [facility] Comment on above: Order Comment: Speci men Type: VENOUS BLOOD SPECIMENOrdering Facility: [facility] Address: [address] [place] [address] Performed By: #### 2 4344-4 ####[facility] LABIA [id number] [place] [address] [place] Calcium.ionized adjusted to pH 7.4 (BldA) [Moles/Vol] 1.15 mmol/L Normal 1.08-1.30 [facility] Comment on above: Order Comment: Speci men Type: VENOUS BLOOD SPECIMENOrdering Facility: [facility] Address: [address] [place] [address] Performed By: #### 2 4344-4 ####[facility] [id number] [place] [address] [place] Carboxyhemoglobin (BldV) [Mass fraction] 1.4 % Normal 0.0-2.0 [facility] Comment on above: Order Comment: Speci men Type: VENOUS BLOOD SPECIMENOrdering Facility: [facility] Address: [address] [place] [address] Result Comment: Carb oxyhemoglobin Reference Range for Smokers: 2.0-8.0% Performed By: #### 2 4344-4 ####[facility]ITAL[facility] [id number] [place] [address] [place] CO2 (BldV) [Partial pressure] 46 mm[Hg] Normal 42-55 [facility] Comment on above: Order Comment: Speci men Type: VENOUS BLOOD SPECIMENOrdering Facility: [facility] Address: [address] [place] [address] Performed By: #### 2 4344-4 ####[facility] LABIA [id number] [place] [address] [place] CO2 adjusted to patient's actual temperature (BldV) [Partial pressure] 46 mmHg Normal 42-55 [facility] Comment on above: Order Comment: Speci men Type: VENOUS BLOOD SPECIMENOrdering Facility: [facility] Address: [address] [place] [address] Performed By: #### 2 4344-4 ####[facility] LABCLIA [id number] [place] [id number] [place] Glucose [Mass/Vol] 108 mg/dL High 60-105 [facility] Comment on above: Order Comment: Speci men Type: VENOUS BLOOD SPECIMENOrdering Facility: [facility] Address: [address] [place] [address] Performed By: #### 2 4344-4 ####[facility] LABIA [id number] [place] [address] [place] Hematocrit (Bld) [Volume fraction] 25.1 % Low 39.0-51.0 [facility] Comment on above: Order Comment: Speci men Type: VENOUS BLOOD SPECIMENOrdering Facility: [facility] Address: [address] [place] [address] Performed By: #### 2 4344-4 ####[facility] LABIA [id number] [place] [address] [place] Hemoglobin (Bld) [Mass/Vol] 8.0 g/dL Low 13.0-17.0 [facility] Comment on above: Order Comment: Speci men Type: VENOUS BLOOD SPECIMENOrdering Facility: [facility] Address: [address] [place] [address] Performed By: #### 2 4344-4 ####[facility] LABIA [id number] [place] [address] [place] Lactate [Moles/Vol] 0.5 mmol/L Normal 0.5-2.2 [facility] Comment on above: Order Comment: Speci men Type: VENOUS BLOOD SPECIMENOrdering Facility: [facility] Address: [address] [place] [address] Performed By: #### 2 4344-4 ####[facility] LABCLIA [id number] [place] [address] [place] Methemoglobin (Bld) [Mass fraction] 1.3 % Normal 0.0-1.5 [facility] Comment on above: Order Comment: Speci men Type: VENOUS BLOOD SPECIMENOrdering Facility: [facility] Address: [address] [place] [address] Performed By: #### 2 4344-4 ####[facility] LABCLIA [id number] [facility] [address] [place] [address] [place] Oxygen (BldV) [Partial pressure] 36 mm[Hg] Normal 35-45 [facility] Comment on above: Order Comment: Speci men Type: VENOUS BLOOD SPECIMENOrdering Facility: [facility] Address: [address] [place], [place] [address] Performed By: #### 2 4344-4 ####[facility] LABCLIA [id number] [facility] [address] [place] [address] [place] Oxygen adjusted to patient's actual temperature (BldV) [Partial pressure] 36 mmHg Normal 35-45 [facility] Comment on above: Order Comment: Speci men Type: VENOUS BLOOD SPECIMENOrdering Facility: [facility] Address: [address] [place] [address] Performed By: #### 2 4344-4 ####[facility] LABCLIA [id number] [address] [place] [address] [place] Oxygen saturation in Venous blood 62 % Normal 60-85 [facility] Comment on above: Order Comment: Speci men Type: VENOUS BLOOD SPECIMENOrdering Facility: [facility] Address: [address] [place] [address] Performed By: #### 2 4344-4 ####[facility] LABCLIA [id number] [address] [place] [address] [place] Oxyhemoglobin (BldV) [Mass fraction] 61 % Normal 60-85 [facility] Comment on above: Order Comment: Speci men Type: VENOUS BLOOD SPECIMENOrdering Facility: [facility] Address: [address] [place] [address] Performed By: #### 2 4344-4 ####[facility] LABCLIA [id number] [place] [address] [place] pH (BldV) 7.41 [pH] Normal 7.32-7.42 [facility] Comment on above: Order Comment: Speci men Type: VENOUS BLOOD SPECIMENOrdering Facility: [facility] Address: [address] [place] [address] Performed By: #### 2 4344-4 ####[facility] LABIA [id number] [place] [address] [place] pH adjusted to patient's actual temperature (BldV) 7.41 Normal 7.32-7.42 [facility] Comment on above: Order Comment: Speci men Type: VENOUS BLOOD SPECIMENOrdering Facility: [facility] Address: [address] [place] [address] Performed By: #### 2 4344-4 ####[facility] LABIA [id number] [place] [address] [place] Potassium [Moles/Vol] 4.2 mmol/L Normal 3.5-5.0 [facility] Comment on above: Order Comment: Speci men Type: VENOUS BLOOD SPECIMENOrdering Facility: [facility] Address: [address] [place] [address] Performed By: #### 2 4344-4 ####[facility] LABIA [id number] [place] [id number] [place] Sodium [Moles/Vol] 135 mmol/L Low 136-144 [facility] Comment on above: Order Comment: Speci men Type: VENOUS BLOOD SPECIMENOrdering Facility: [facility] Address: [address] [place] [address] Performed By: #### 2 4344-4 ####[facility] LABIA [id number] [place] [id number] [place] Base excess Calc (BldV) [Moles/Vol] 5 mmol/L High 0-2 [facility] Comment on above: Order Comment: Speci men Type: VENOUS BLOOD SPECIMENOrdering Facility: [facility] Address: [address] [place] [address] Performed By: #### 2 4344-4 ####[facility] LABCLIA [id number] [place] [address] [place] Calcium.ionized (Bld) [Mass/Vol] 1.12 mmol/L Normal 1.08-1.30 [facility] Comment on above: Order Comment: Speci men Type: VENOUS BLOOD SPECIMENOrdering Facility: [facility] Address: [address] [place] [address] Performed By: #### 2 4344-4 ####[facility] [id number] [place] [address] [place] Calcium.ionized adjusted to pH 7.4 (BldA) [Moles/Vol] 1.12 mmol/L Normal 1.08-1.30 [facility] Comment on above: Order Comment: Speci men Type: VENOUS BLOOD SPECIMENOrdering Facility: [facility] Address: [address] [place] [address] Performed By: #### 2 4344-4 ####[facility] LABIA [id number] [place] [address] [place] Carboxyhemoglobin (BldV) [Mass fraction] 1.1 % Normal 0.0-2.0 [facility] Comment on above: Order Comment: Speci men Type: VENOUS BLOOD SPECIMENOrdering Facility: [facility] Address: [address] [place] [address] Result Comment: Carb oxyhemoglobin Reference Range for Smokers: 2.0-8.0% Performed By: #### 2 4344-4 ####[facility] LABIA [id number] [place] [address] [place] CO2 (BldV) [Partial pressure] 51 mm[Hg] Normal 42-55 [facility] Comment on above: Order Comment: Speci men Type: VENOUS BLOOD SPECIMENOrdering Facility: [facility] Address: [address] [place] [address] Performed By: #### 2 4344-4 ####[facility] LABCLIA [id number] [place] [address] [place] Hematocrit (Bld) [Volume fraction] 25.9 % Low 39.0-51.0 [facility] Comment on above: Order Comment: Speci men Type: VENOUS BLOOD SPECIMENOrdering Facility: [facility] Address: [address] [place] [address] Performed By: #### 2 4344-4 ####[facility] LABCLIA [id number] [place] [address] [place] Hemoglobin (Bld) [Mass/Vol] 8.3 g/dL Low 13.0-17.0 [facility] Comment on above: Order Comment: Speci men Type: VENOUS BLOOD SPECIMENOrdering Facility: [facility] Address: [address] [place] [address] Performed By: #### 2 4344-4 ####[facility] LABCLIA [id number] [place] [address] [place] Lactate [Moles/Vol] 0.5 mmol/L Normal 0.5-2.2 [facility] Comment on above: Order Comment: Speci men Type: VENOUS BLOOD SPECIMENOrdering Facility: [facility] Address: [address] [place] [address] Performed By: #### 2 4344-4 ####[facility] LABCLIA [id number] [place] [address] [place] Methemoglobin (Bld) [Mass fraction] 1.0 % Normal 0.0-1.5 [facility] Comment on above: Order Comment: Speci men Type: VENOUS BLOOD SPECIMENOrdering Facility: [facility] Address: [address] [place] [id number] Performed By: #### 2 4344-4 ####[facility] LABCLIA [id number] [address] [address] [place] Oxygen (BldV) [Partial pressure] 29 mm[Hg] Low 35-45 [facility] Comment on above: Order Comment: Speci men Type: VENOUS BLOOD SPECIMENOrdering Facility: [facility] Address: [address] [place] [address] Performed By: #### 2 4344-4 ####[facility] LABCLIA [id number] [place] [id number] [place] Oxygen saturation in Venous blood 46 % Low 60-85 [facility] Comment on above: Order Comment: Speci men Type: VENOUS BLOOD SPECIMENOrdering Facility: [facility] Address: [address] [place] [address] Performed By: #### 2 4344-4 ####[facility] LABCLIA [id number] [place] [id number] [place] Oxyhemoglobin (BldV) [Mass fraction] 45 % Low 60-85 [facility] Comment on above: Order Comment: Speci men Type: VENOUS BLOOD SPECIMENOrdering Facility: [facility] Address: [address] [place] [address] Performed By: #### 2 4344-4 ####[facility] LABCLIA [id number] [address] [address] [place] pH (BldV) 7.39 [pH] Normal 7.32-7.42 [facility] Comment on above: Order Comment: Speci men Type: VENOUS BLOOD SPECIMENOrdering Facility: [facility] Address: [address] [place], [place] [address] Performed By: #### 2 4344-4 ####[facility] LABCLIA [id number] [address] [address] [place] Potassium [Moles/Vol] 4.4 mmol/L Normal 3.5-5.0 [facility] Comment on above: Order Comment: Speci men Type: VENOUS BLOOD SPECIMENOrdering Facility: [facility] Address: [address] [place] [address] Performed By: #### 2 4344-4 ####[facility] LABCLIA [id number] [place] [address] [place] Sodium [Moles/Vol] 135 mmol/L Low 136-144 [facility] Comment on above: Order Comment: Speci men Type: VENOUS BLOOD SPECIMENOrdering Facility: [facility] Address: [address] [place] [address] Performed By: #### 2 4344-4 ####[facility] LABCLIA [id number] [place] [address] [place] Base excess Calc (BldV) [Moles/Vol] 6 mmol/L High 0-2 [facility] Comment on above: Order Comment: Speci men Type: VENOUS BLOOD SPECIMENOrdering Facility: [facility] Address: [address] [place] [address] Performed By: #### 2 4344-4 ####[facility] LABCLIA [id number] [place] [address] [place] Body temperature 98.6 [degF] Normal [facility] Comment on above: Order Comment: Speci men Type: VENOUS BLOOD SPECIMENOrdering Facility: [facility] Address: [address] [place], [place] [address] Performed By: #### 2 4344-4 ####[facility] LABCLIA [id number] [place] [address] [place] Calcium.ionized (Bld) [Mass/Vol] 1.17 mmol/L Normal 1.08-1.30 [facility] Comment on above: Order Comment: Speci men Type: VENOUS BLOOD SPECIMENOrdering Facility: [facility] Address: [address] [place] [address] Performed By: #### 2 4344-4 ####[facility] LABIA [id number] [place] [address] [place] Calcium.ionized adjusted to pH 7.4 (BldA) [Moles/Vol] 1.15 mmol/L Normal 1.08-1.30 [facility] Comment on above: Order Comment: Speci men Type: VENOUS BLOOD SPECIMENOrdering Facility: [facility] Address: [address] [place] [address] Performed By: #### 2 4344-4 ####[facility] LABIA [id number] [place] [address] [place] Carboxyhemoglobin (BldV) [Mass fraction] 1.2 % Normal 0.0-2.0 [facility] Comment on above: Order Comment: Speci men Type: VENOUS BLOOD SPECIMENOrdering Facility: [facility] Address: [address] [place] [address] Result Comment: Carb oxyhemoglobin Reference Range for Smokers: 2.0-8.0% Performed By: #### 2 4344-4 ####[facility] LABIA [id number] [place] [address] [place] CO2 (BldV) [Partial pressure] 56 mm[Hg] High 42-55 [facility] Comment on above: Order Comment: Speci men Type: VENOUS BLOOD SPECIMENOrdering Facility: [facility] Address: [address] [place] [address] Performed By: #### 2 4344-4 ####[facility] LABIA [id number] [place] [address] [place] Glucose [Mass/Vol] 70 mg/dL Normal 60-105 [facility] Comment on above: Order Comment: Speci men Type: VENOUS BLOOD SPECIMENOrdering Facility: [facility] Address: [address] [place] [address] Performed By: #### 2 4344-4 ####[facility] LABCLIA [id number] [place] [address] [place] HCO3 (Bld) [Moles/Vol] 32 mmol/L High 24-[address] [facility] Comment on above: Order Comment: Speci men Type: VENOUS BLOOD SPECIMENOrdering Facility: [facility] Address: [address] [place] [address] Performed By: #### 2 4344-4 ####[facility] LABCLIA [id number] [place] [address] [place] Hematocrit (Bld) [Volume fraction] 25.5 % Low 39.0-51.0 [facility] Comment on above: Order Comment: Speci men Type: VENOUS BLOOD SPECIMENOrdering Facility: [facility] Address: [address] [place] [address] Performed By: #### 2 4344-4 ####[facility] LABIA [id number] [place] [address] [place] Hemoglobin (Bld) [Mass/Vol] 8.2 g/dL Low 13.0-17.0 [facility] Comment on above: Order Comment: Speci men Type: VENOUS BLOOD SPECIMENOrdering Facility: [facility] Address: [address] [place] [address] Performed By: #### 2 4344-4 ####[facility] LABIA [id number] [place] [id number] [place] Lactate [Moles/Vol] 0.6 mmol/L Normal 0.5-2.2 [facility] Comment on above: Order Comment: Speci men Type: VENOUS BLOOD SPECIMENOrdering Facility: [facility] Address: [address] [place] [address] Performed By: #### 2 4344-4 ####[facility] LABIA [id number] [place] [id number] [place] LITERS 3 Liters/min Normal [facility] Comment on above: Order Comment: Speci men Type: VENOUS BLOOD SPECIMENOrdering Facility: [facility] Address: [address] [place] [id number] Performed By: #### 2 4344-4 ####[facility] LABCLIA [id number] [address] [address] [place] Methemoglobin (Bld) [Mass fraction] 1.7 % High 0.0-1.5 [facility] Comment on above: Order Comment: Speci men Type: VENOUS BLOOD SPECIMENOrdering Facility: [facility] Address: [address] [place] [address] Performed By: #### 2 4344-4 ####[facility] LABCLIA [id number] [place] [id number] [place] O2 THERAPY NC = Nasal Cannula Normal [facility] Comment on above: Order Comment: Speci men Type: VENOUS BLOOD SPECIMENOrdering Facility: [facility] Address: [address] [place], [place] [address] Performed By: #### 2 4344-4 ####[facility] LABCLIA [id number] [place] [id number] [place] Oxygen (BldV) [Partial pressure] 31 mm[Hg] Low 35-45 [facility] Comment on above: Order Comment: Speci men Type: VENOUS BLOOD SPECIMENOrdering Facility: [facility] Address: [address] [place] [id number] Performed By: #### 2 4344-4 ####[facility] LABCLIA [id number] [place] [id number] [place] Oxygen saturation in Venous blood 51 % Low 60-85 [facility] Comment on above: Order Comment: Speci men Type: VENOUS BLOOD SPECIMENOrdering Facility: [facility] Address: [address] [place] [id number] Performed By: #### 2 4344-4 ####[facility] LABCLIA [id number] [address] [address] [place] Oxyhemoglobin (BldV) [Mass fraction] 49 % Low 60-85 [facility] Comment on above: Order Comment: Speci men Type: VENOUS BLOOD SPECIMENOrdering Facility: [facility] Address: [address] [place] [address] Performed By: #### 2 4344-4 ####[facility] LABCLIA [id number] [place] [id number] [place] pH (BldV) 7.37 [pH] Normal 7.32-7.42 [facility] Comment on above: Order Comment: Speci men Type: VENOUS BLOOD SPECIMENOrdering Facility: [facility] Address: [address] [place] [address] Performed By: #### 2 4344-4 ####[facility] LABIA [id number] [place] [id number] [place] Potassium [Moles/Vol] 4.4 mmol/L Normal 3.5-5.0 [facility] Comment on above: Order Comment: Speci men Type: VENOUS BLOOD SPECIMENOrdering Facility: [facility] Address: [address] [place] [address] Performed By: #### 2 4344-4 ####[facility] LABIA [id number] [place] [id number] [place] Sodium [Moles/Vol] 136 mmol/L Normal 136-144 [facility] Comment on above: Order Comment: Speci men Type: VENOUS BLOOD SPECIMENOrdering Facility: [facility] Address: [address] [place] [address] Performed By: #### 2 4344-4 ####[facility] LABCLIA [id number] [address] [address] [place] Base excess Calc (BldV) [Moles/Vol] 5 mmol/L High 0-2 [facility] Comment on above: Order Comment: Speci men Type: VENOUS BLOOD SPECIMENOrdering Facility: [facility] Address: [address] [place] [address] Performed By: #### 2 4344-4 ####[facility] LABIA [id number] [place] [id number] [place] Body temperature 98.6 [degF] Normal [facility] Comment on above: Order Comment: Speci men Type: VENOUS BLOOD SPECIMENOrdering Facility: [facility] Address: [address] [place] [address] Performed By: #### 2 4344-4 ####[facility] [id number] [place] [address] [place] Calcium.ionized (Bld) [Mass/Vol] 1.14 mmol/L Normal 1.08-1.30 [facility] Comment on above: Order Comment: Speci men Type: VENOUS BLOOD SPECIMENOrdering Facility: [facility] Address: [address] [place] [address] Performed By: #### 2 4344-4 ####[facility] [id number] [place] [address] [place] Calcium.ionized adjusted to pH 7.4 (BldA) [Moles/Vol] 1.12 mmol/L Normal 1.08-1.30 [facility] Comment on above: Order Comment: Speci men Type: VENOUS BLOOD SPECIMENOrdering Facility: [facility] Address: [address] [place], [place] [address] Performed By: #### 2 4344-4 ####[facility] [id number] [place] [id number] [place] Carboxyhemoglobin (BldV) [Mass fraction] 1.0 % Normal 0.0-2.0 [facility] Comment on above: Order Comment: Speci men Type: VENOUS BLOOD SPECIMENOrdering Facility: [facility] Address: [address] [place] [address] Result Comment: Carb oxyhemoglobin Reference Range for Smokers: 2.0-8.0% Performed By: #### 2 4344-4 ####[facility] LABCLIA [id number] [address] [address] [place] CO2 (BldV) [Partial pressure] 54 mm[Hg] Normal 42-55 [facility] Comment on above: Order Comment: Speci men Type: VENOUS BLOOD SPECIMENOrdering Facility: [facility] Address: [address] [place] [address] Performed By: #### 2 4344-4 ####[facility] LABCLIA [id number] [place] [address] [place] Glucose [Mass/Vol] 94 mg/dL Normal 60-105 [facility] Comment on above: Order Comment: Speci men Type: VENOUS BLOOD SPECIMENOrdering Facility: [facility] Address: [address] [place] [address] Performed By: #### 2 4344-4 ####[facility] LABCLIA [id number] [place] [address] [place] HCO3 (Bld) [Moles/Vol] 31 mmol/L High 24-28 [facility] Comment on above: Order Comment: Speci men Type: VENOUS BLOOD SPECIMENOrdering Facility: [facility] Address: [address] [place] [address] Performed By: #### 2 4344-4 ####[facility] LABCLIA [id number] [place] [id number] [place] Hematocrit (Bld) [Volume fraction] 24.3 % Low 39.0-51.0 [facility] Comment on above: Order Comment: Speci men Type: VENOUS BLOOD SPECIMENOrdering Facility: [facility] Address: [address] [place] [address] Performed By: #### 2 4344-4 ####[facility] LABCLIA [id number] [address] [address] [place] Hemoglobin (Bld) [Mass/Vol] 7.8 g/dL Low 13.0-17.0 [facility] Comment on above: Order Comment: Speci men Type: VENOUS BLOOD SPECIMENOrdering Facility: [facility] Address: [address] [place] [address] Performed By: #### 2 4344-4 ####[facility] LABCLIA [id number] [address] [address] [place] Lactate [Moles/Vol] 0.7 mmol/L Normal 0.5-2.2 [facility] Comment on above: Order Comment: Speci men Type: VENOUS BLOOD SPECIMENOrdering Facility: [facility] Address: [address] [place] [address] Performed By: #### 2 4344-4 ####[facility] LABCLIA [id number] [place] [id number] [place] LITERS 3 Liters/min Normal [facility] Comment on above: Order Comment: Speci men Type: VENOUS BLOOD SPECIMENOrdering Facility: [facility] Address: [address] [place], [place] [address] Performed By: #### 2 4344-4 ####[facility] LABCLIA [id number] [place] [id number] [place] Methemoglobin (Bld) [Mass fraction] 1.0 % Normal 0.0-1.5 [facility] Comment on above: Order Comment: Speci men Type: VENOUS BLOOD SPECIMENOrdering Facility: [facility] Address: [address] [place], [place] [address] Performed By: #### 2 4344-4 ####[facility] LABCLIA [id number] [address] [address] [place] O2 THERAPY NC = Nasal Cannula Normal [facility] Comment on above: Order Comment: Speci men Type: VENOUS BLOOD SPECIMENOrdering Facility: [facility] Address: [address] [place], [place] [address] Performed By: #### 2 4344-4 ####[facility] LABCLIA [id number] [address] [address] [place] Oxygen (BldV) [Partial pressure] 33 mm[Hg] Low 35-45 [facility] Comment on above: Order Comment: Speci men Type: VENOUS BLOOD SPECIMENOrdering Facility: [facility] Address: [address] [place], [place] [address] Performed By: #### 2 4344-4 ####[facility] LABCLIA [id number] [address] [address] [place] Oxygen saturation in Venous blood 54 % Low 60-85 [facility] Comment on above: Order Comment: Speci men Type: VENOUS BLOOD SPECIMENOrdering Facility: [facility] Address: [address] [place] [address] Performed By: #### 2 4344-4 ####[facility] LABCLIA [id number] [address] [address] [place] Oxyhemoglobin (BldV) [Mass fraction] 53 % Low 60-85 [facility] Comment on above: Order Comment: Speci men Type: VENOUS BLOOD SPECIMENOrdering Facility: [facility] Address: [address] [place], [place] [address] Performed By: #### 2 4344-4 ####[facility] LABCLIA [id number] [address] [address] [place] pH (BldV) 7.38 [pH] Normal 7.32-7.42 [facility] Comment on above: Order Comment: Speci men Type: VENOUS BLOOD SPECIMENOrdering Facility: [facility] Address: [address] [place], [place] [address] Performed By: #### 2 4344-4 ####[facility] LABCLIA [id number] [place] [id number] [place] Potassium [Moles/Vol] 4.4 mmol/L Normal 3.5-5.0 [facility] Comment on above: Order Comment: Speci men Type: VENOUS BLOOD SPECIMENOrdering Facility: [facility] Address: [address] [place] [address] Performed By: #### 2 4344-4 ####[facility] LABCLIA [id number] [place] [address] [place] Sodium [Moles/Vol] 134 mmol/L Low 136-144 [facility] Comment on above: Order Comment: Speci men Type: VENOUS BLOOD SPECIMENOrdering Facility: [facility] Address: [address] [place] [address] Performed By: #### 2 4344-4 ####[facility] LABCLIA [id number] [place] [address] [place] Haptoglob SerPl-mCncon 10-23 Haptoglobin [Mass/Vol] mg/dL Low 31-[address] [facility] Comment on above: Order Comment: Speci men Type: BLOOD SPECIMENOrdering Facility: [facility] Address: [address] [place] [address] Performed By: #### 2 4323-8, 98718-5, 4542-7, 2777-1 ####[facility] LABIA [id number] [place] [id number] [place] INTRAOPERATIVE ECHO Angelic 0 10-23-2024 INTRAOPERATIVE ECHO POST Normal [facility] Magnesium SerPl-mCncon 10-23 Magnesium [Mass/Vol] 1.9 mg/dL Normal 1.7-2.3 [facility] Comment on above: Order Comment: Speci men Type: BLOOD SPECIMENOrdering Facility: [facility] Address: [address] [place] [address] Performed By: #### 2 4323-8, 53419-0, 4542-7, 2777-1 ####[facility] LABCLIA [id number] [place] [id number] [place] Magnesium [Mass/Vol] 2.0 mg/dL Normal 1.7-2.3 [facility] Comment on above: Order Comment: Gini nowak Type: BLOOD SPECIMENOrdering Facility: [facility] Address: [address] [place] [address] Performed By: #### 1 9123-9, 2777-1, 34485-3 ####[facility] LABCLIA [id number] [place] [id number] [place] NUTRITIONon 10-23-2024 NUTRITION Normal [facility] OPERATIVE NOon 10-23-2024 OPERATIVE NO Normal [facility] PT panel Coag (PPP)on 2024 INR Coag (PPP) [Relative time] 1.3 {INR} Normal 0.9-1.3 [facility] Comment on above: Order Comment: Specsonja nowak Type: BLOOD SPECIMENOrdering Facility: [facility] Address: [address] [place] [address] Result Comment: Nettie min K Antagonist (VKA) Therapeutic Range: INR 2 to 3 (Target INR of 2.5)Note: For patients treated with VKA drugs, such as warfarin, the [employer] [employer] 2012 Guideline recommends a therapeutic INR range of 2 to 3 (target INR of 2.5). This recommendation includes high-risk patients with antiphospholipid syndrome with previous arterial or venous thromboembolism, current-generation mechanical or bioprosthetic aortic heart valve replacement.Note: Patients with mechanical aortic valve replacement and additional risk factors for thromboembolic events (atrial fibrillation, previous thromboembolism, LV dysfunction, hypercoagulable conditions) or an older generation mechanical AVR (i.e., ball in-Cage) or any mechanical MVR should have a INR therapeutic range of 2.5 to 3.5 (target INR of 3).Cecile EMMANUEL, et al. Chest 2012, 141:7S-47SWilder JALLOH, et al. JACC 2017, 70: 252-289 Performed By: #### 3 4528-0 ####[facility] LABIA [id number] [place] [address] [place] PT Coag (PPP) [Time] 13.9 s High 9.7-13.0 [facility] Comment on above: Order Comment: Speci men Type: BLOOD SPECIMENOrdering Facility: [facility] Address: [address] [place] [address] Performed By: #### 3 4528-0 ####[facility] [id number] [address] [place] INR Coag (PPP) [Relative time] 1.3 {INR} Normal 0.9-1.3 [facility] Comment on above: Order Comment: Speci men Type: BLOOD SPECIMENOrdering Facility: [facility] Address: [address] [place] [address] Result Comment: Nettie min K Antagonist (VKA) Therapeutic Range: INR 2 to 3 (Target INR of 2.5)Note: For patients treated with VKA drugs, such as warfarin, the [employer] [employer] 2012 Guideline recommends a therapeutic INR range of 2 to 3 (target INR of 2.5). This recommendation includes high-risk patients with antiphospholipid syndrome with previous arterial or venous thromboembolism, current-generation mechanical or bioprosthetic aortic heart valve replacement.Note: Patients with mechanical aortic valve replacement and additional risk factors for thromboembolic events (atrial fibrillation, previous thromboembolism, LV dysfunction, hypercoagulable conditions) or an older generation mechanical AVR (i.e., ball in-Cage) or any mechanical MVR should have a INR therapeutic range of 2.5 to 3.5 (target INR of 3).Cecile GH, et al. Chest 2012, 141:7S-47SNishimura RA, et al. [facility] 2017, 70: 252-289 Performed By: #### 3 4528-0, 3217-7 ####[facility] [id number] [place] [address] [place] PT Coag (PPP) [Time] 14.0 s High 9.7-13.0 [facility] Comment on above: Order Comment: Speci men Type: BLOOD SPECIMENOrdering Facility: [facility] Address: [address] [place] [address] Performed By: #### 3 4528-0, 3217-7 ####[facility] LABCLIA [id number] [place] [id number] [place] Phosphate SerPl-mCncon 10-23 Phosphate [Mass/Vol] 3.5 mg/dL Normal 2.7-4.8 [facility] Comment on above: Order Comment: Speci men Type: BLOOD SPECIMENOrdering Facility: [facility] Address: [address] [place] [address] Performed By: #### 2 4323-8, 44187-3, 4542-7, 2777-1 ####[facility] LABCLIA [id number] [place] [address] [place] Phosphate [Mass/Vol] 3.4 mg/dL Normal 2.7-4.8 [facility] Comment on above: Order Comment: Speci men Type: BLOOD SPECIMENOrdering Facility: [facility] Address: [address] [place] [address] Performed By: #### 1 9123-9, 2777-1, 22961-9 ####[facility] LABCLIA [id number] [place] [id number] [place] TAVR PROCEDURE REPORTon 10-09 TAVR PROCEDURE REPORT Normal [facility] THERAPY NTon 10-23-2024 THERAPY NT Normal [facility] THERAPY NT Normal [facility] XR CHEST 1V FRONTAL PORTon 0 10-23-2024 XR CHEST 1V FRONTAL PORT Normal [facility] ARTERIAL BLOOD GASESon 10-22 Base excess Calc (Bld) [Moles/Vol] 5 mmol/L High 0-2 [facility] Comment on above: Order Comment: Speci men Type: ARTERIAL BLOOD SPECIMENOrdering Facility: [facility] Address: [address] [place] [address] Performed By: #### A LLBG ####[facility] LABCLIA [id number] [place] [address] [place] Body temperature 97.52 [degF] Normal [facility] Comment on above: Order Comment: Speci men Type: ARTERIAL BLOOD SPECIMENOrdering Facility: [facility] Address: [address] [place] [address] Performed By: #### A LLBG ####[facility] LABCLIA [id number] [place] [address] [place] Order Comment: Speci men Type: VENOUS BLOOD SPECIMENOrdering Facility: [facility] Address: [address] [place] [address] Performed By: #### 2 4344-4 ####[facility] LABCLIA [id number] [place] [address] [place] Calcium.ionized (Bld) [Mass/Vol] 1.16 mmol/L Normal 1.08-1.30 [facility] Comment on above: Order Comment: Speci men Type: ARTERIAL BLOOD SPECIMENOrdering Facility: [facility] Address: [address] [place] [address] Performed By: #### A LLBG ####[facility] LABCLIA [id number] [place] [address] [place] Calcium.ionized adjusted to pH 7.4 (BldA) [Moles/Vol] 1.15 mmol/L Normal 1.08-1.30 [facility] Comment on above: Order Comment: Speci men Type: ARTERIAL BLOOD SPECIMENOrdering Facility: [facility] Address: [address] [place] [address] Performed By: #### A LLBG ####[facility] LABCLIA [id number] [place] [id number] [place] Carboxyhemoglobin (BldA) [Mass fraction] 1.3 % Normal 0.0-2.0 [facility] Comment on above: Order Comment: Speci men Type: ARTERIAL BLOOD SPECIMENOrdering Facility: [facility] Address: [address] [place] [address] Result Comment: Carb oxyhemoglobin Reference Range for Smokers: 2.0-8.0% Performed By: #### A LLBG ####[facility] LABCLIA [id number] [place] [address] [place] CO2 (Bld) [Partial pressure] 53 mm Hg High 36-46 [facility] Comment on above: Order Comment: Speci men Type: ARTERIAL BLOOD SPECIMENOrdering Facility: [facility] Address: [address] [place] [address] Performed By: #### A LLBG ####[facility] LABCLIA [id number] [place] [address] [place] CO2 adjusted to patient's actual temperature (Bld) [Partial pressure] 51 mmHg High 36-46 [facility] Comment on above: Order Comment: Speci men Type: ARTERIAL BLOOD SPECIMENOrdering Facility: [facility] Address: [address] [place] [address] Performed By: #### A LLBG ####[facility] LABCLIA [id number] [address] [address] [place] Glucose [Mass/Vol] 155 mg/dL High 60-105 [facility] Comment on above: Order Comment: Speci men Type: ARTERIAL BLOOD SPECIMENOrdering Facility: [facility] Address: [address] [place] [address] Performed By: #### A LLBG ####[facility] LABCLIA [id number] [place] [id number] [place] HCO3 (Bld) [Moles/Vol] 31 mmol/L High 22-[address] [facility] Comment on above: Order Comment: Speci men Type: ARTERIAL BLOOD SPECIMENOrdering Facility: [facility] Address: [address] [place] [address] Performed By: #### A LLBG ####[facility] LABCLIA [id number] [place] [address] [place] Hematocrit (Bld) [Volume fraction] 27.8 % Low 39.0-51.0 [facility] Comment on above: Order Comment: Speci men Type: ARTERIAL BLOOD SPECIMENOrdering Facility: [facility] Address: [address] [place] [address] Performed By: #### A LLBG ####[facility] LABIA [id number] [place] [address] [place] Hemoglobin (Bld) [Mass/Vol] 9.0 g/dL Low 13.0-17.0 [facility] Comment on above: Order Comment: Speci men Type: ARTERIAL BLOOD SPECIMENOrdering Facility: [facility] Address: [address] [place] [address] Performed By: #### A LLBG ####[facility] LABIA [id number] [place] [address] [place] Lactate [Moles/Vol] 0.5 mmol/L Normal 0.5-2.2 [facility] Comment on above: Order Comment: Speci men Type: ARTERIAL BLOOD SPECIMENOrdering Facility: [facility] Address: [address] [place] [address] Performed By: #### A LLBG ####[facility] LABCLIA [id number] [place] [address] [place] LITERS 4 Liters/min Normal [facility] Comment on above: Order Comment: Speci men Type: ARTERIAL BLOOD SPECIMENOrdering Facility: [facility] Address: [address] [place] [address] Performed By: #### A LLBG ####[facility] LABCLIA [id number] [place] [address] [place] Order Comment: Speci men Type: VENOUS BLOOD SPECIMENOrdering Facility: [facility] Address: [address] [place] [id number] Performed By: #### 2 4344-4 ####[facility] LABCLIA [id number] [address] [place] [address] [place] Methemoglobin (Bld) [Mass fraction] 1.6 % High 0.0-1.5 [facility] Comment on above: Order Comment: Speci men Type: ARTERIAL BLOOD SPECIMENOrdering Facility: [facility] Address: [address] [place], [place] [address] Performed By: #### A LLBG ####[facility] LABCLIA [id number] [address] [place] [address] [place] O2 THERAPY NC = Nasal Cannula Normal [facility] Comment on above: Order Comment: Speci men Type: ARTERIAL BLOOD SPECIMENOrdering Facility: [facility] Address: [address] [place] [address] Performed By: #### A LLBG ####[facility] LABCLIA [id number] [address] [place] [address] [place] Order Comment: Speci men Type: VENOUS BLOOD SPECIMENOrdering Facility: [facility] Address: [address] [place], [place] [address] Performed By: #### 2 4344-4 ####[facility] LABCLIA [id number] [address] [place] [address] [place] Oxygen (Bld) [Partial pressure] 96 mm Hg High 85-95 [facility] Comment on above: Order Comment: Speci men Type: ARTERIAL BLOOD SPECIMENOrdering Facility: [facility] Address: [address] [id number] Performed By: #### A LLBG ####[facility] LABCLIA [id number] [address] [place] [address] [place] Oxygen adjusted to patient's actual temperature (Bld) [Partial pressure] 93 mmHg Normal 85-95 [facility] Comment on above: Order Comment: Speci men Type: ARTERIAL BLOOD SPECIMENOrdering Facility: [facility] Address: [address] [place] [address] Performed By: #### A LLBG ####[facility] LABCLIA [id number] [address] [address] [place] Oxyhemoglobin (BldA) [Mass fraction] 94 % Low 95-98 [facility] Comment on above: Order Comment: Speci men Type: ARTERIAL BLOOD SPECIMENOrdering Facility: [facility] Address: [address] [place] [address] Performed By: #### A LLBG ####[facility] LABIA [id number] [address] [address] [place] pH (Bld) 7.38 [pH] Normal 7.35-7.45 [facility] Comment on above: Order Comment: Speci men Type: ARTERIAL BLOOD SPECIMENOrdering Facility: [facility] Address: [address] [place] [address] Performed By: #### A LLBG ####[facility] LABIA [id number] [place] [address] [place] pH adjusted to patient's actual temperature (Bld) 7.39 Normal 7.35-7.45 [facility] Comment on above: Order Comment: Speci men Type: ARTERIAL BLOOD SPECIMENOrdering Facility: [facility] Address: [address] [place] [address] Performed By: #### A LLBG ####[facility] LABIA [id number] [place] [id number] [place] Potassium [Moles/Vol] 4.4 mmol/L Normal 3.5-5.0 [facility] Comment on above: Order Comment: Speci men Type: ARTERIAL BLOOD SPECIMENOrdering Facility: [facility] Address: [address] [place] [address] Performed By: #### A LLBG ####[facility] LABCLIA [id number] [place] [address] [place] Sodium [Moles/Vol] 131 mmol/L Low 136-144 [facility] Comment on above: Order Comment: Speci men Type: ARTERIAL BLOOD SPECIMENOrdering Facility: [facility] Address: [address] [place] [address] Performed By: #### A LLBG ####[facility] LABCLIA [id number] [place] [address] [place] Base excess Calc (Bld) [Moles/Vol] 6 mmol/L High 0-2 [facility] Comment on above: Order Comment: Speci men Type: ARTERIAL BLOOD SPECIMENOrdering Facility: [facility] Address: [address] [place] [address] Performed By: #### A LLBG ####[facility] LABIA [id number] [place] [address] [place] Body temperature 98.6 [degF] Normal [facility] Comment on above: Order Comment: Speci men Type: ARTERIAL BLOOD SPECIMENOrdering Facility: [facility] Address: [address] [place] [address] Performed By: #### A LLBG ####[facility] LABIA [id number] [place] [address] [place] Calcium.ionized (Bld) [Mass/Vol] 1.15 mmol/L Normal 1.08-1.30 [facility] Comment on above: Order Comment: Speci men Type: ARTERIAL BLOOD SPECIMENOrdering Facility: [facility] Address: [address] [place] [address] Performed By: #### A LLBG ####[facility] LABCLIA [id number] [place] [address] [place] Calcium.ionized adjusted to pH 7.4 (BldA) [Moles/Vol] 1.16 mmol/L Normal 1.08-1.30 [facility] Comment on above: Order Comment: Speci men Type: ARTERIAL BLOOD SPECIMENOrdering Facility: [facility] Address: [address] [place] [address] Performed By: #### A LLBG ####[facility] LABCLIA [id number] [place] [address] [place] Carboxyhemoglobin (BldA) [Mass fraction] 0.4 % Normal 0.0-2.0 [facility] Comment on above: Order Comment: Speci men Type: ARTERIAL BLOOD SPECIMENOrdering Facility: [facility] Address: [address] [place] [address] Result Comment: Carb oxyhemoglobin Reference Range for Smokers: 2.0-8.0% Performed By: #### A LLBG ####[facility] LABCLIA [id number] [place] [address] [place] CO2 (Bld) [Partial pressure] 47 mm Hg High 36-46 [facility] Comment on above: Order Comment: Speci men Type: ARTERIAL BLOOD SPECIMENOrdering Facility: [facility] Address: [address] [place] [address] Performed By: #### A LLBG ####[facility] LABCLIA [id number] [place] [address] [place] Glucose [Mass/Vol] 157 mg/dL High 60-105 [facility] Comment on above: Order Comment: Speci men Type: ARTERIAL BLOOD SPECIMENOrdering Facility: [facility] Address: [address] [place] [address] Performed By: #### A LLBG ####[facility] LABCLIA [id number] [place] [address] [place] HCO3 (Bld) [Moles/Vol] 31 mmol/L High 22-[address] [facility] Comment on above: Order Comment: Speci men Type: ARTERIAL BLOOD SPECIMENOrdering Facility: [facility] Address: [address] [place] [address] Performed By: #### A LLBG ####[facility] LABCLIA [id number] [place] [address] [place] Hematocrit (Bld) [Volume fraction] 28.2 % Low 39.0-51.0 [facility] Comment on above: Order Comment: Speci men Type: ARTERIAL BLOOD SPECIMENOrdering Facility: [facility] Address: [address] [place] [address] Performed By: #### A LLBG ####[facility] LABIA [id number] [place] [address] [place] Hemoglobin (Bld) [Mass/Vol] 9.1 g/dL Low 13.0-17.0 [facility] Comment on above: Order Comment: Speci men Type: ARTERIAL BLOOD SPECIMENOrdering Facility: [facility] Address: [address] [place] [address] Performed By: #### A LLBG ####[facility] LABIA [id number] [place] [address] [place] Lactate [Moles/Vol] 0.9 mmol/L Normal 0.5-2.2 [facility] Comment on above: Order Comment: Speci men Type: ARTERIAL BLOOD SPECIMENOrdering Facility: [facility] Address: [address] [place] [address] Performed By: #### A LLBG ####[facility] LABCLIA [id number] [place] [address] [place] LITERS 5 Liters/min Normal [facility] Comment on above: Order Comment: Speci men Type: ARTERIAL BLOOD SPECIMENOrdering Facility: [facility] Address: [address] [place] [address] Performed By: #### A LLBG ####[facility] LABIA [id number] [place] [address] [place] Methemoglobin (Bld) [Mass fraction] 1.4 % Normal 0.0-1.5 [facility] Comment on above: Order Comment: Speci men Type: ARTERIAL BLOOD SPECIMENOrdering Facility: [facility] Address: [address] [place] [address] Performed By: #### A LLBG ####[facility] LABCLIA [id number] [place] [id number] [place] O2 THERAPY NC = Nasal Cannula Normal [facility] Comment on above: Order Comment: Speci men Type: ARTERIAL BLOOD SPECIMENOrdering Facility: [facility] Address: [address] [place] [address] Performed By: #### A LLBG ####[facility] LABCLIA [id number] [place] [id number] [place] Oxygen (Bld) [Partial pressure] 79 mm Hg Low 85-95 [facility] Comment on above: Order Comment: Speci men Type: ARTERIAL BLOOD SPECIMENOrdering Facility: [facility] Address: [address] [place] [address] Performed By: #### A LLBG ####[facility] LABCLIA [id number] [address] [place] Oxyhemoglobin (BldA) [Mass fraction] 94 % Low 95-98 [facility] Comment on above: Order Comment: Speci men Type: ARTERIAL BLOOD SPECIMENOrdering Facility: [facility] Address: [address] [place] [address] Performed By: #### A LLBG ####[facility] LABCLIA [id number] [place] [id number] [place] pH (Bld) 7.43 [pH] Normal 7.35-7.45 [facility] Comment on above: Order Comment: Speci men Type: ARTERIAL BLOOD SPECIMENOrdering Facility: [facility] Address: [address] [place] [address] Performed By: #### A LLBG ####[facility] LABCLIA [id number] [place] [id number] [place] Potassium [Moles/Vol] 4.5 mmol/L Normal 3.5-5.0 [facility] Comment on above: Order Comment: Speci men Type: ARTERIAL BLOOD SPECIMENOrdering Facility: [facility] Address: [address] [place] [address] Performed By: #### A LLBG ####[facility] LABCLIA [id number] [place] [address] [place] Sodium [Moles/Vol] 132 mmol/L Low 136-144 [facility] Comment on above: Order Comment: Speci men Type: ARTERIAL BLOOD SPECIMENOrdering Facility: [facility] Address: [address] [place] [address] Performed By: #### A LLBG ####[facility] LABCLIA [id number] [place] [address] [place] CBC panel Auto (Bld)on 10-22 Erythrocyte distribution width (RBC) [Ratio] 16.9 % High 11.5-15.0 [facility] Comment on above: Order Comment: Speci men Type: BLOOD SPECIMENOrdering Facility: [facility] Address: [address] [place] [address] Performed By: #### 5 8410-2 ####[facility] LABIA [id number] [place] [address] [place] Hematocrit (Bld) [Volume fraction] 27.1 % Low 39.0-51.0 [facility] Comment on above: Order Comment: Speci men Type: BLOOD SPECIMENOrdering Facility: [facility] Address: [address] [place] [address] Performed By: #### 5 8410-2 ####[facility] LABCLIA [id number] [place] [address] [place] Hemoglobin (Bld) [Mass/Vol] 8.7 g/dL Low 13.0-17.0 [facility] Comment on above: Order Comment: Speci men Type: BLOOD SPECIMENOrdering Facility: [facility] Address: [address] [place] [address] Performed By: #### 5 8410-2 ####[facility] LABCLIA [id number] [place] [address] [place] MCH (RBC) [Entitic mass] 32.0 pg Normal 26.0-34.0 [facility] Comment on above: Order Comment: Speci men Type: BLOOD SPECIMENOrdering Facility: [facility] Address: [address] [place] [address] Performed By: #### 5 8410-2 ####[facility] LABIA [id number] [address] [place] MCHC (RBC) [Mass/Vol] 32.1 g/dL Normal 30.5-36.0 [facility] Comment on above: Order Comment: Speci men Type: BLOOD SPECIMENOrdering Facility: [facility] Address: [address] [place] [address] Performed By: #### 5 8410-2 ####[facility] LABIA [id number] [address] [place] MCV (RBC) [Entitic vol] 99.6 fL Normal 80.0-100.0 [facility] Comment on above: Order Comment: Speci men Type: BLOOD SPECIMENOrdering Facility: [facility] Address: [address] [place] [address] Performed By: #### 5 8410-2 ####[facility] LABIA [id number] [address] [place] Nucleated RBC (Bld) [#/Vol] 10*3/uL Normal <0.01 [facility] Comment on above: Order Comment: Speci men Type: BLOOD SPECIMENOrdering Facility: [facility] Address: [address] [place] [address] Performed By: #### 5 8410-2 ####[facility] [id number] [place] [address] [place] Platelet mean volume (Bld) [Entitic vol] 11.8 fL Normal 9.0-12.7 [facility] Comment on above: Order Comment: Speci men Type: BLOOD SPECIMENOrdering Facility: [facility] Address: [address] [place] [address] Performed By: #### 5 8410-2 ####[facility] [id number] [place] [address] [place] Platelets (Bld) [#/Vol] 116 10*3/uL Low 150-400 [facility] Comment on above: Order Comment: Speci men Type: BLOOD SPECIMENOrdering Facility: [facility] Address: [address] [place] [address] Result Comment: No c lot detected.Results checked and verified. Performed By: #### 5 8410-2 ####[facility] [id number] [place] [address] [place] RBC (Bld) [#/Vol] 2.72 10*6/uL Low 4.20-6.00 [facility] Comment on above: Order Comment: Speci men Type: BLOOD SPECIMENOrdering Facility: [facility] Address: [address] [place] [address] Performed By: #### 5 8410-2 ####[facility] [id number] [place] [address] [place] WBC (Bld) [#/Vol] 5.75 10*3/uL Normal 3.70-11.00 [facility] Comment on above: Order Comment: Speci men Type: BLOOD SPECIMENOrdering Facility: [facility] Address: [address] [place] [address] Performed By: #### 5 8410-2 ####[facility] LABIA [id number] [address] [address] [place] Comprehensive metabolic 2000 panelon 10-22-2024 Albumin [Mass/Vol] 2.5 g/dL Low 3.9-4.9 [facility] Comment on above: Order Comment: Speci men Type: BLOOD SPECIMENOrdering Facility: [facility] Address: [address] [place] [address] Performed By: #### 2 4323-8, , 2776-02 ####[facility] LABIA [id number] [place] [address] [place] ALP [Catalytic activity/Vol] 90 U/L Normal 38-113 [facility] Comment on above: Order Comment: Speci men Type: BLOOD SPECIMENOrdering Facility: [facility] Address: [address] [place] [address] Performed By: #### 2 4323-8, , 2776-02 ####[facility] LABIA [id number] [place] [id number] [place] ALT [Catalytic activity/Vol] 11 U/L Normal 10-54 [facility] Comment on above: Order Comment: Speci men Type: BLOOD SPECIMENOrdering Facility: [facility] Address: [address] [place] [address] Performed By: #### 2 4323-8, , 2776-02 ####[facility] LABIA [id number] [address] [address] [place] Anion gap [Moles/Vol] 12 mmol/L Normal 8-15 [facility] Comment on above: Order Comment: Speci men Type: BLOOD SPECIMENOrdering Facility: [facility] Address: [address] [place], [place] [address] Performed By: #### 2 4323-8, , 2776-02 ####[facility] LABCLIA [id number] [address] [address] [place] AST [Catalytic activity/Vol] 19 U/L Normal 14-40 [facility] Comment on above: Order Comment: Speci men Type: BLOOD SPECIMENOrdering Facility: [facility] Address: [address] [place], [place] [address] Performed By: #### 2 4323-8, , 2776-02 ####[facility] LABCLIA [id number] [address] [address] [place] Bilirubin [Mass/Vol] 0.3 mg/dL Normal 0.2-1.3 [facility] Comment on above: Order Comment: Speci men Type: BLOOD SPECIMENOrdering Facility: [facility] Address: [address] [place], [place] [address] Performed By: #### 2 4323-8, , 2776-02 ####[facility] LABCLIA [id number] [address] [address] [place] Calcium [Mass/Vol] 8.3 mg/dL Low 8.5-10.2 [facility] Comment on above: Order Comment: Speci men Type: BLOOD SPECIMENOrdering Facility: [facility] Address: [address] [place], [place] [address] Performed By: #### 2 4323-8, , 2776-02 ####[facility] LABCLIA [id number] [address] [address] [place] Chloride [Moles/Vol] 98 mmol/L Normal 98-107 [facility] Comment on above: Order Comment: Speci men Type: BLOOD SPECIMENOrdering Facility: [facility] Address: [address] [place] [address] Performed By: #### 2 4323-8, , 2776-02 ####[facility] LABCLIA [id number] [place] [id number] [place] CO2 [Moles/Vol] 25 mmol/L Normal 22-30 [facility] Comment on above: Order Comment: Speci men Type: BLOOD SPECIMENOrdering Facility: [facility] Address: [address] [place] [address] Performed By: #### 2 4323-8, , 2776-02 ####[facility] LABCLIA [id number] [place] [id number] [place] Creatinine [Mass/Vol] 1.38 mg/dL High 0.73-1.22 [facility] Comment on above: Order Comment: Speci men Type: BLOOD SPECIMENOrdering Facility: [facility] Address: [address] [place] [address] Performed By: #### 2 4323-8, , 2776-02 ####[facility] LABIA [id number] [place] [id number] [place] eGFRcr SerPlBld CKD-EPI 2020 58 mL/min/1.73m??? Low >=60 [facility] Comment on above: Order Comment: Speci men Type: BLOOD SPECIMENOrdering Facility: [facility] Address: [address] [place] [address] Result Comment: Gurwinder mated Glomerular Filtration Rate [...] actual GFR. Performed By: #### 2 4323-8, , 2776-02 ####[facility] LABCLIA [id number] [address] [address] [place] Glucose [Mass/Vol] 157 mg/dL High 74-99 [facility] Comment on above: Order Comment: Gini nowak Type: BLOOD SPECIMENOrdering Facility: [facility] Address: [address] [place], [place] [address] Result Comment: The [place] [employer] (ADA) provides guidance for cutoff values for fasting glucose and random glucose. The ADA defines fasting as no caloric intake for at least 8 hours. Fasting plasma glucose results between 100 to 125 mg/dL indicate increased risk for diabetes (prediabetes).Fasting plasma glucose results greater than or equal to 126 mg/dL meet the criteria for diagnosis of diabetes. In the absence of unequivocal hyperglycemia, results should be confirmed by repeat testing. In a patient with classic symptoms of hyperglycemia or hyperglycemic crisis, random plasma glucose results greater than or equal to 200 mg/dL meet the criteria for diagnosis of diabetes.Reference: Standards of Medical Care in Diabetes 2016, [place] [employer]. Diabetes Care. 2016.39(Suppl 1). Performed By: #### 2 4323-8, , 2776- ####[facility] LABCLIA [id number] [place] [address] [place] Potassium [Moles/Vol] 4.7 mmol/L Normal 3.7-5.1 [facility] Comment on above: Order Comment: Gini nowak Type: BLOOD SPECIMENOrdering Facility: [facility] Address: [address] [place] [address] Performed By: #### 2 4323-8, , 2776-02 ####[facility] LABCLIA [id number] [place] [id number] [place] Protein [Mass/Vol] 5.1 g/dL Low 6.3-8.0 [facility] Comment on above: Order Comment: Gini nowak Type: BLOOD SPECIMENOrdering Facility: [facility] Address: [address] [place] [id number] Performed By: #### 2 4323-8, , 2776-02 ####[facility] LABCLIA [id number] [address] [address] [place] Sodium [Moles/Vol] 135 mmol/L Low 136-144 [facility] Comment on above: Order Comment: Speci men Type: BLOOD SPECIMENOrdering Facility: [facility] Address: [address] [place] [address] Performed By: #### 2 4323-8, 58187-9, 2777-1 ####[facility] LABCLIA [id number] [place] [address] [place] Urea nitrogen [Mass/Vol] 21 mg/dL Normal 9-24 [facility] Comment on above: Order Comment: Speci men Type: BLOOD SPECIMENOrdering Facility: [facility] Address: [address] [place] [address] Performed By: #### 2 4323-8, , 2776-02 ####[facility] LABIA [id number] [place] [address] [place] Fact Xa PPP-aCncon Coagulation factor X activated act Coag Qn (PPP) 0.53 IU/mL High <0.10 [facility] Comment on above: Order Comment: Corbyi eliu Type: BLOOD SPECIMENOrdering Facility: [facility] Address: [address] [place] [address] Result Comment: The recommended therapeutic range for treatment of venous and arterial thrombosis with intravenous unfractionated heparin is an anti Xa activity level of 0.3 to 0.7 IU/mL. In patients with concomitant therapy with thrombolytic agents and/or platelet glycoprotein IIb/IIIa antagonists, the recommended therapeutic range is an anti Xa activity level of 0.2 to 0.5 IU/mL. Performed By: #### 3 217-7 ####[facility] LABIA [id number] [place] [address] [place] Gas and Carbon monoxide pane l (BldV)on 10-22-2024 Base excess Calc (BldV) [Moles/Vol] 6 mmol/L High 0-2 [facility] Comment on above: Order Comment: Speci men Type: VENOUS BLOOD SPECIMENOrdering Facility: [facility] Address: [address] [place] [address] Performed By: #### 2 4344-4 ####[facility] LABIA [id number] [place] [address] [place] Body temperature 98.6 [degF] Normal [facility] Comment on above: Order Comment: Speci men Type: VENOUS BLOOD SPECIMENOrdering Facility: [facility] Address: [address] [place] [address] Performed By: #### 2 4344-4 ####[facility] LABIA [id number] [place] [address] [place] Calcium.ionized (Bld) [Mass/Vol] 1.13 mmol/L Normal 1.08-1.30 [facility] Comment on above: Order Comment: Speci men Type: VENOUS BLOOD SPECIMENOrdering Facility: [facility] Address: [address] [place] [address] Performed By: #### 2 4344-4 ####[facility] [id number] [place] [address] [place] Calcium.ionized adjusted to pH 7.4 (BldA) [Moles/Vol] 1.13 mmol/L Normal 1.08-1.30 [facility] Comment on above: Order Comment: Speci men Type: VENOUS BLOOD SPECIMENOrdering Facility: [facility] Address: [address] [place] [address] Performed By: #### 2 4344-4 ####[facility] [id number] [place] [address] [place] Carboxyhemoglobin (BldV) [Mass fraction] 1.2 % Normal 0.0-2.0 [facility] Comment on above: Order Comment: Speci men Type: VENOUS BLOOD SPECIMENOrdering Facility: [facility] Address: [address] [place] [address] Result Comment: Carb oxyhemoglobin Reference Range for Smokers: 2.0-8.0% Performed By: #### 2 4344-4 ####[facility] LABCLIA [id number] [place] [address] [place] CO2 (BldV) [Partial pressure] 52 mm[Hg] Normal 42-55 [facility] Comment on above: Order Comment: Speci men Type: VENOUS BLOOD SPECIMENOrdering Facility: [facility] Address: [address] [place] [address] Performed By: #### 2 4344-4 ####[facility] LABCLIA [id number] [place] [address] [place] Glucose [Mass/Vol] 106 mg/dL High 60-105 [facility] Comment on above: Order Comment: Speci men Type: VENOUS BLOOD SPECIMENOrdering Facility: [facility] Address: [address] [place] [address] Performed By: #### 2 4344-4 ####[facility] LABCLIA [id number] [place] [address] [place] HCO3 (Bld) [Moles/Vol] 31 mmol/L High 24-[address] [facility] Comment on above: Order Comment: Speci men Type: VENOUS BLOOD SPECIMENOrdering Facility: [facility] Address: [address] [place] [address] Performed By: #### 2 4344-4 ####[facility] LABCLIA [id number] [place] [id number] [place] Hematocrit (Bld) [Volume fraction] 25.2 % Low 39.0-51.0 [facility] Comment on above: Order Comment: Speci men Type: VENOUS BLOOD SPECIMENOrdering Facility: [facility] Address: [address] [place] [address] Performed By: #### 2 4344-4 ####[facility] LABCLIA [id number] [place] [id number] [place] Hemoglobin (Bld) [Mass/Vol] 8.1 g/dL Low 13.0-17.0 [facility] Comment on above: Order Comment: Speci men Type: VENOUS BLOOD SPECIMENOrdering Facility: [facility] Address: [address] [place] [address] Performed By: #### 2 4344-4 ####[facility] LABCLIA [id number] [place] [address] [place] Lactate [Moles/Vol] 0.8 mmol/L Normal 0.5-2.2 [facility] Comment on above: Order Comment: Speci men Type: VENOUS BLOOD SPECIMENOrdering Facility: [facility] Address: [address] [place] [address] Performed By: #### 2 4344-4 ####[facility] LABCLIA [id number] [place] [address] [place] LITERS 4 Liters/min Normal [facility] Comment on above: Order Comment: Speci men Type: VENOUS BLOOD SPECIMENOrdering Facility: [facility] Address: [address] [place] [address] Performed By: #### 2 4344-4 ####[facility] LABCLIA [id number] [place] [address] [place] Methemoglobin (Bld) [Mass fraction] 1.0 % Normal 0.0-1.5 [facility] Comment on above: Order Comment: Speci men Type: VENOUS BLOOD SPECIMENOrdering Facility: [facility] Address: [address] [place] [address] Performed By: #### 2 4344-4 ####[facility] LABCLIA [id number] [place] [address] [place] O2 THERAPY NC = Nasal Cannula Normal [facility] Comment on above: Order Comment: Speci men Type: VENOUS BLOOD SPECIMENOrdering Facility: [facility] Address: [address] [place] [address] Performed By: #### 2 4344-4 ####[facility] LABCLIA [id number] [address] [place] [address] [place] Oxygen (BldV) [Partial pressure] 35 mm[Hg] Normal 35-45 [facility] Comment on above: Order Comment: Speci men Type: VENOUS BLOOD SPECIMENOrdering Facility: [facility] Address: [address] [place] [address] Performed By: #### 2 4344-4 ####[facility] LABCLIA [id number] [address] [place] [address] [place] Oxygen saturation in Venous blood 57 % Low 60-85 [facility] Comment on above: Order Comment: Speci men Type: VENOUS BLOOD SPECIMENOrdering Facility: [facility] Address: [address] [place] [address] Performed By: #### 2 4344-4 ####[facility] LABIA [id number] [place] [id number] [place] Oxyhemoglobin (BldV) [Mass fraction] 56 % Low 60-85 [facility] Comment on above: Order Comment: Speci men Type: VENOUS BLOOD SPECIMENOrdering Facility: [facility] Address: [address] [place] [address] Performed By: #### 2 4344-4 ####[facility] LABIA [id number] [address] [address] [place] pH (BldV) 7.39 [pH] Normal 7.32-7.42 [facility] Comment on above: Order Comment: Speci men Type: VENOUS BLOOD SPECIMENOrdering Facility: [facility] Address: [address] [place], [place] [address] Performed By: #### 2 4344-4 ####[facility] LABCLIA [id number] [address] [address] [place] Potassium [Moles/Vol] 4.4 mmol/L Normal 3.5-5.0 [facility] Comment on above: Order Comment: Speci men Type: VENOUS BLOOD SPECIMENOrdering Facility: [facility] Address: [address] [place] [address] Performed By: #### 2 4344-4 ####[facility] LABCLIA [id number] [place] [id number] [place] Sodium [Moles/Vol] 132 mmol/L Low 136-144 [facility] Comment on above: Order Comment: Speci men Type: VENOUS BLOOD SPECIMENOrdering Facility: [facility] Address: [address] [place] [address] Performed By: #### 2 4344-4 ####[facility] LABCLIA [id number] [place] [address] [place] Base excess Calc (BldV) [Moles/Vol] 6 mmol/L High 0-2 [facility] Comment on above: Order Comment: Speci men Type: VENOUS BLOOD SPECIMENOrdering Facility: [facility] Address: [address] [place] [address] Performed By: #### 2 4344-4 ####[facility] LABCLIA [id number] [place] [address] [place] Body temperature 98.78 [degF] Normal [facility] Comment on above: Order Comment: Speci men Type: VENOUS BLOOD SPECIMENOrdering Facility: [facility] Address: [address] [place] [address] Performed By: #### 2 4344-4 ####[facility] LABCLIA [id number] [place] [id number] [place] Calcium.ionized (Bld) [Mass/Vol] 1.14 mmol/L Normal 1.08-1.30 [facility] Comment on above: Order Comment: Speci men Type: VENOUS BLOOD SPECIMENOrdering Facility: [facility] Address: [address] [place] [address] Performed By: #### 2 4344-4 ####[facility] LABIA [id number] [place] [address] [place] Calcium.ionized adjusted to pH 7.4 (BldA) [Moles/Vol] 1.14 mmol/L Normal 1.08-1.30 [facility] Comment on above: Order Comment: Speci men Type: VENOUS BLOOD SPECIMENOrdering Facility: [facility] Address: [address] [place] [address] Performed By: #### 2 4344-4 ####[facility] [id number] [place] [address] [place] Carboxyhemoglobin (BldV) [Mass fraction] 1.3 % Normal 0.0-2.0 [facility] Comment on above: Order Comment: Speci men Type: VENOUS BLOOD SPECIMENOrdering Facility: [facility] Address: [address] [place] [address] Result Comment: Carb oxyhemoglobin Reference Range for Smokers: 2.0-8.0% Performed By: #### 2 4344-4 ####[facility] LABIA [id number] [place] [address] [place] CO2 (BldV) [Partial pressure] 51 mm[Hg] Normal 42-55 [facility] Comment on above: Order Comment: Speci men Type: VENOUS BLOOD SPECIMENOrdering Facility: [facility] Address: [address] [place] [address] Performed By: #### 2 4344-4 ####[facility] LABIA [id number] [place] [address] [place] CO2 adjusted to patient's actual temperature (BldV) [Partial pressure] 52 mmHg Normal 42-55 [facility] Comment on above: Order Comment: Speci men Type: VENOUS BLOOD SPECIMENOrdering Facility: [facility] Address: [address] [place] [address] Performed By: #### 2 4344-4 ####[facility] LABCLIA [id number] [address] [place] [address] [place] Glucose [Mass/Vol] 67 mg/dL Normal 60-105 [facility] Comment on above: Order Comment: Speci men Type: VENOUS BLOOD SPECIMENOrdering Facility: [facility] Address: [address] [place] [address] Performed By: #### 2 4344-4 ####[facility] LABCLIA [id number] [address] [place] [address] [place] HCO3 (Bld) [Moles/Vol] 31 mmol/L High 24-[address] [facility] Comment on above: Order Comment: Speci men Type: VENOUS BLOOD SPECIMENOrdering Facility: [facility] Address: [address] [place] [address] Performed By: #### 2 4344-4 ####[facility] LABCLIA [id number] [place] [address] [place] Hematocrit (Bld) [Volume fraction] 26.5 % Low 39.0-51.0 [facility] Comment on above: Order Comment: Speci men Type: VENOUS BLOOD SPECIMENOrdering Facility: [facility] Address: [address] [place] [address] Performed By: #### 2 4344-4 ####[facility] LABCLIA [id number] [place] [id number] [place] Hemoglobin (Bld) [Mass/Vol] 8.5 g/dL Low 13.0-17.0 [facility] Comment on above: Order Comment: Speci men Type: VENOUS BLOOD SPECIMENOrdering Facility: [facility] Address: [address] [place] [address] Performed By: #### 2 4344-4 ####[facility] LABCLIA [id number] [place] [id number] [place] Lactate [Moles/Vol] 0.8 mmol/L Normal 0.5-2.2 [facility] Comment on above: Order Comment: Speci men Type: VENOUS BLOOD SPECIMENOrdering Facility: [facility] Address: [address] [place] [id number] Performed By: #### 2 4344-4 ####[facility] LABCLIA [id number] [address] [place] [address] [place] LITERS 4 Liters/min Normal [facility] Comment on above: Order Comment: Speci men Type: VENOUS BLOOD SPECIMENOrdering Facility: [facility] Address: [address] [place], [place] [address] Performed By: #### 2 4344-4 ####[facility] LABCLIA [id number] [address] [address] [place] Methemoglobin (Bld) [Mass fraction] 1.6 % High 0.0-1.5 [facility] Comment on above: Order Comment: Speci men Type: VENOUS BLOOD SPECIMENOrdering Facility: [facility] Address: [address] [place], [place] [address] Performed By: #### 2 4344-4 ####[facility] LABCLIA [id number] [address] [address] [place] O2 THERAPY NC = Nasal Cannula Normal [facility] Comment on above: Order Comment: Speci men Type: VENOUS BLOOD SPECIMENOrdering Facility: [facility] Address: [address] [place] [address] Performed By: #### 2 4344-4 ####[facility] LABCLIA [id number] [address] [address] [place] Oxygen (BldV) [Partial pressure] 35 mm[Hg] Normal 35-45 [facility] Comment on above: Order Comment: Speci men Type: VENOUS BLOOD SPECIMENOrdering Facility: [facility] Address: [address] [place] [address] Performed By: #### 2 4344-4 ####[facility] LABCLIA [id number] [address] [place] [address] [place] Oxygen adjusted to patient's actual temperature (BldV) [Partial pressure] 35 mmHg Normal 35-45 [facility] Comment on above: Order Comment: Speci men Type: VENOUS BLOOD SPECIMENOrdering Facility: [facility] Address: [address] [place], [place] [address] Performed By: #### 2 4344-4 ####[facility] LABCLIA [id number] [address] [address] [place] Oxygen saturation in Venous blood 62 % Normal 60-85 [facility] Comment on above: Order Comment: Speci men Type: VENOUS BLOOD SPECIMENOrdering Facility: [facility] Address: [address] [place], [place] [address] Performed By: #### 2 4344-4 ####[facility] LABCLIA [id number] [address] [address] [place] Oxyhemoglobin (BldV) [Mass fraction] 60 % Normal 60-85 [facility] Comment on above: Order Comment: Speci men Type: VENOUS BLOOD SPECIMENOrdering Facility: [facility] Address: [address] [place], [place] [address] Performed By: #### 2 4344-4 ####[facility] LABCLIA [id number] [address] [address] [place] pH (BldV) 7.40 [pH] Normal 7.32-7.42 [facility] Comment on above: Order Comment: Speci men Type: VENOUS BLOOD SPECIMENOrdering Facility: [facility] Address: [address] [place] [address] Performed By: #### 2 4344-4 ####[facility] LABCLIA [id number] [address] [address] [place] pH adjusted to patient's actual temperature (BldV) 7.40 Normal 7.32-7.42 [facility] Comment on above: Order Comment: Speci men Type: VENOUS BLOOD SPECIMENOrdering Facility: [facility] Address: [address] [place] [id number] Performed By: #### 2 4344-4 ####[facility] LABCLIA [id number] [address] [address] [place] Potassium [Moles/Vol] 4.5 mmol/L Normal 3.5-5.0 [facility] Comment on above: Order Comment: Speci men Type: VENOUS BLOOD SPECIMENOrdering Facility: [facility] Address: [address] [place], [place] [address] Performed By: #### 2 4344-4 ####[facility] LABCLIA [id number] [place] [id number] [place] Sodium [Moles/Vol] 132 mmol/L Low 136-144 [facility] Comment on above: Order Comment: Speci men Type: VENOUS BLOOD SPECIMENOrdering Facility: [facility] Address: [address] [place], [place] [address] Performed By: #### 2 4344-4 ####[facility] LABCLIA [id number] [place] [address] [place] Base excess Calc (BldV) [Moles/Vol] 5 mmol/L High 0-2 [facility] Comment on above: Order Comment: Speci men Type: VENOUS BLOOD SPECIMENOrdering Facility: [facility] Address: [address] [place], [place] [address] Performed By: #### 2 4344-4 ####[facility] LABCLIA [id number] [place] [id number] [place] Body temperature 98.06 [degF] Normal [facility] Comment on above: Order Comment: Speci men Type: VENOUS BLOOD SPECIMENOrdering Facility: [facility] Address: [address] [place], [place] [address] Performed By: #### 2 4344-4 ####[facility] LABCLIA [id number] [place] [address] [place] Calcium.ionized (Bld) [Mass/Vol] 1.15 mmol/L Normal 1.08-1.30 [facility] Comment on above: Order Comment: Speci men Type: VENOUS BLOOD SPECIMENOrdering Facility: [facility] Address: [address] [place] [address] Performed By: #### 2 4344-4 ####[facility] LABIA [id number] [place] [address] [place] Calcium.ionized adjusted to pH 7.4 (BldA) [Moles/Vol] 1.13 mmol/L Normal 1.08-1.30 [facility] Comment on above: Order Comment: Speci men Type: VENOUS BLOOD SPECIMENOrdering Facility: [facility] Address: [address] [place] [address] Performed By: #### 2 4344-4 ####[facility]ITAL[facility] [id number] [place] [address] [place] Carboxyhemoglobin (BldV) [Mass fraction] 1.6 % Normal 0.0-2.0 [facility] Comment on above: Order Comment: Speci men Type: VENOUS BLOOD SPECIMENOrdering Facility: [facility] Address: [address] [place] [address] Result Comment: Carb oxyhemoglobin Reference Range for Smokers: 2.0-8.0% Performed By: #### 2 4344-4 ####[facility] LABIA [id number] [place] [address] [place] CO2 (BldV) [Partial pressure] 54 mm[Hg] Normal 42-55 [facility] Comment on above: Order Comment: Speci men Type: VENOUS BLOOD SPECIMENOrdering Facility: [facility] Address: [address] [place] [address] Performed By: #### 2 4344-4 ####[facility] LABCLIA [id number] [facility] [address] [place] [address] [place] CO2 adjusted to patient's actual temperature (BldV) [Partial pressure] 53 mmHg Normal 42-55 [facility] Comment on above: Order Comment: Speci men Type: VENOUS BLOOD SPECIMENOrdering Facility: [facility] Address: [address] [place] [address] Performed By: #### 2 4344-4 ####[facility] LABCLIA [id number] [place] [address] [place] Glucose [Mass/Vol] 185 mg/dL High 60-105 [facility] Comment on above: Order Comment: Speci men Type: VENOUS BLOOD SPECIMENOrdering Facility: [facility] Address: [address] [place] [address] Performed By: #### 2 4344-4 ####[facility] LABCLIA [id number] [place] [address] [place] HCO3 (Bld) [Moles/Vol] 30 mmol/L High 24-[address] [facility] Comment on above: Order Comment: Speci men Type: VENOUS BLOOD SPECIMENOrdering Facility: [facility] Address: [address] [place] [address] Performed By: #### 2 4344-4 ####[facility] LABCLIA [id number] [place] [address] [place] Hematocrit (Bld) [Volume fraction] 27.8 % Low 39.0-51.0 [facility] Comment on above: Order Comment: Speci men Type: VENOUS BLOOD SPECIMENOrdering Facility: [facility] Address: [address] [place] [address] Performed By: #### 2 4344-4 ####[facility] LABCLIA [id number] [facility] [place] [id number] [place] Hemoglobin (Bld) [Mass/Vol] 9.0 g/dL Low 13.0-17.0 [facility] Comment on above: Order Comment: Speci men Type: VENOUS BLOOD SPECIMENOrdering Facility: [facility] Address: [address] [place] [id number] Performed By: #### 2 4344-4 ####[facility] LABCLIA [id number] [address] [address] [place] Lactate [Moles/Vol] 1.7 mmol/L Normal 0.5-2.2 [facility] Comment on above: Order Comment: Speci men Type: VENOUS BLOOD SPECIMENOrdering Facility: [facility] Address: [address] [place] [address] Performed By: #### 2 4344-4 ####[facility] LABCLIA [id number] [place] [id number] [place] LITERS 4 Liters/min Normal [facility] Comment on above: Order Comment: Speci men Type: VENOUS BLOOD SPECIMENOrdering Facility: [facility] Address: [address] [place] [address] Performed By: #### 2 4344-4 ####[facility] LABCLIA [id number] [place] [address] [place] Methemoglobin (Bld) [Mass fraction] 1.8 % High 0.0-1.5 [facility] Comment on above: Order Comment: Speci men Type: VENOUS BLOOD SPECIMENOrdering Facility: [facility] Address: [address] [place] [address] Performed By: #### 2 4344-4 ####[facility] LABCLIA [id number] [place] [id number] [place] O2 THERAPY NC = Nasal Cannula Normal [facility] Comment on above: Order Comment: Speci men Type: VENOUS BLOOD SPECIMENOrdering Facility: [facility] Address: [address] [place], [place] [address] Performed By: #### 2 4344-4 ####[facility] LABCLIA [id number] [address] [place] [address] [place] Oxygen (BldV) [Partial pressure] 39 mm[Hg] Normal 35-45 [facility] Comment on above: Order Comment: Speci men Type: VENOUS BLOOD SPECIMENOrdering Facility: [facility] Address: [address] [place], [place] [address] Performed By: #### 2 4344-4 ####[facility] LABCLIA [id number] [address] [place] [address] [place] Oxygen adjusted to patient's actual temperature (BldV) [Partial pressure] 38 mmHg Normal 35-45 [facility] Comment on above: Order Comment: Speci men Type: VENOUS BLOOD SPECIMENOrdering Facility: [facility] Address: [address] [place], [place] [address] Performed By: #### 2 4344-4 ####[facility] LABCLIA [id number] [place] [id number] [place] Oxygen saturation in Venous blood 64 % Normal 60-85 [facility] Comment on above: Order Comment: Speci men Type: VENOUS BLOOD SPECIMENOrdering Facility: [facility] Address: [address] [place], [place] [address] Performed By: #### 2 4344-4 ####[facility] LABCLIA [id number] [address] [address] [place] Oxyhemoglobin (BldV) [Mass fraction] 61 % Normal 60-85 [facility] Comment on above: Order Comment: Speci men Type: VENOUS BLOOD SPECIMENOrdering Facility: [facility] Address: [address] [place] [address] Performed By: #### 2 4344-4 ####[facility] LABCLIA [id number] [address] [address] [place] pH (BldV) 7.37 [pH] Normal 7.32-7.42 [facility] Comment on above: Order Comment: Speci men Type: VENOUS BLOOD SPECIMENOrdering Facility: [facility] Address: [address] [place], [place] [address] Performed By: #### 2 4344-4 ####[facility] LABCLIA [id number] [place] [address] [place] pH adjusted to patient's actual temperature (BldV) 7.37 Normal 7.32-7.42 [facility] Comment on above: Order Comment: Speci men Type: VENOUS BLOOD SPECIMENOrdering Facility: [facility] Address: [address] [place], [place] [address] Performed By: #### 2 4344-4 ####[facility] LABCLIA [id number] [place] [address] [place] Potassium [Moles/Vol] 4.4 mmol/L Normal 3.5-5.0 [facility] Comment on above: Order Comment: Speci men Type: VENOUS BLOOD SPECIMENOrdering Facility: [facility] Address: [address] [place] [address] Performed By: #### 2 4344-4 ####[facility] LABCLIA [id number] [place] [address] [place] Sodium [Moles/Vol] 133 mmol/L Low 136-144 [facility] Comment on above: Order Comment: Speci men Type: VENOUS BLOOD SPECIMENOrdering Facility: [facility] Address: [address] [place], [place] [address] Performed By: #### 2 4344-4 ####[facility] LABCLIA [id number] [address] [address] [place] Base excess Calc (BldV) [Moles/Vol] 4 mmol/L High 0-2 [facility] Comment on above: Order Comment: Speci men Type: VENOUS BLOOD SPECIMENOrdering Facility: [facility] Address: [address] [place], [place] [address] Performed By: #### 2 4344-4 ####[facility] LABCLIA [id number] [place] [address] [place] Calcium.ionized (Bld) [Mass/Vol] 1.11 mmol/L Normal 1.08-1.30 [facility] Comment on above: Order Comment: Speci men Type: VENOUS BLOOD SPECIMENOrdering Facility: [facility] Address: [address] [place] [address] Performed By: #### 2 4344-4 ####[facility] LABIA [id number] [place] [address] [place] Calcium.ionized adjusted to pH 7.4 (BldA) [Moles/Vol] 1.10 mmol/L Normal 1.08-1.30 [facility] Comment on above: Order Comment: Speci men Type: VENOUS BLOOD SPECIMENOrdering Facility: [facility] Address: [address] [place] [address] Performed By: #### 2 4344-4 ####[facility] [id number] [place] [address] [place] Carboxyhemoglobin (BldV) [Mass fraction] 1.4 % Normal 0.0-2.0 [facility] Comment on above: Order Comment: Speci men Type: VENOUS BLOOD SPECIMENOrdering Facility: [facility] Address: [address] [place] [address] Result Comment: Carb oxyhemoglobin Reference Range for Smokers: 2.0-8.0% Performed By: #### 2 4344-4 ####[facility] [id number] [place] [address] [place] CO2 (BldV) [Partial pressure] 49 mm[Hg] Normal 42-55 [facility] Comment on above: Order Comment: Speci men Type: VENOUS BLOOD SPECIMENOrdering Facility: [facility] Address: [address] [place] [address] Performed By: #### 2 4344-4 ####[facility] LABIA [id number] [place] [id number] [place] CO2 adjusted to patient's actual temperature (BldV) [Partial pressure] 48 mmHg Normal 42-55 [facility] Comment on above: Order Comment: Speci men Type: VENOUS BLOOD SPECIMENOrdering Facility: [facility] Address: [address] [place] [address] Performed By: #### 2 4344-4 ####[facility] LABCLIA [id number] [place] [address] [place] Glucose [Mass/Vol] 142 mg/dL High 60-105 [facility] Comment on above: Order Comment: Speci men Type: VENOUS BLOOD SPECIMENOrdering Facility: [facility] Address: [address] [place] [address] Performed By: #### 2 4344-4 ####[facility] LABCLIA [id number] [place] [address] [place] HCO3 (Bld) [Moles/Vol] 29 mmol/L High 24-[address] [facility] Comment on above: Order Comment: Speci men Type: VENOUS BLOOD SPECIMENOrdering Facility: [facility] Address: [address] [place] [address] Performed By: #### 2 4344-4 ####[facility] LABCLIA [id number] [place] [id number] [place] Hematocrit (Bld) [Volume fraction] 26.6 % Low 39.0-51.0 [facility] Comment on above: Order Comment: Speci men Type: VENOUS BLOOD SPECIMENOrdering Facility: [facility] Address: [address] [place] [address] Performed By: #### 2 4344-4 ####[facility] LABCLIA [id number] [address], [facility]95 [place] Hemoglobin (Bld) [Mass/Vol] 8.6 g/dL Low 13.0-17.0 [facility] Comment on above: Order Comment: Speci men Type: VENOUS BLOOD SPECIMENOrdering Facility: [facility] Address: [address] [place], [place] [address] Performed By: #### 2 4344-4 ####[facility] LABCLIA [id number] [address] [address] [place] Lactate [Moles/Vol] 0.6 mmol/L Normal 0.5-2.2 [facility] Comment on above: Order Comment: Speci men Type: VENOUS BLOOD SPECIMENOrdering Facility: [facility] Address: [address] [place], [place] [address] Performed By: #### 2 4344-4 ####[facility] LABCLIA [id number] [address] [address] [place] Methemoglobin (Bld) [Mass fraction] 1.4 % Normal 0.0-1.5 [facility] Comment on above: Order Comment: Speci men Type: VENOUS BLOOD SPECIMENOrdering Facility: [facility] Address: [address] [place], [place] [address] Performed By: #### 2 4344-4 ####[facility] LABCLIA [id number] [address] [address] [place] Oxygen (BldV) [Partial pressure] 39 mm[Hg] Normal 35-45 [facility] Comment on above: Order Comment: Speci men Type: VENOUS BLOOD SPECIMENOrdering Facility: [facility] Address: [address] [place], [place] [address] Performed By: #### 2 4344-4 ####[facility] LABCLIA [id number] [address] [address] [place] Oxygen adjusted to patient's actual temperature (BldV) [Partial pressure] 37 mmHg Normal 35-45 [facility] Comment on above: Order Comment: Speci men Type: VENOUS BLOOD SPECIMENOrdering Facility: [facility] Address: [address] [place], [place] [address] Performed By: #### 2 4344-4 ####[facility] LABCLIA [id number] [address] [place] [address] [place] Oxygen saturation in Venous blood 64 % Normal 60-85 [facility] Comment on above: Order Comment: Speci men Type: VENOUS BLOOD SPECIMENOrdering Facility: [facility] Address: [address] [place], [place] [address] Performed By: #### 2 4344-4 ####[facility] LABCLIA [id number] [address] [place] [address] [place] Oxyhemoglobin (BldV) [Mass fraction] 62 % Normal 60-85 [facility] Comment on above: Order Comment: Speci men Type: VENOUS BLOOD SPECIMENOrdering Facility: [facility] Address: [address] [place] [address] Performed By: #### 2 4344-4 ####[facility] LABCLIA [id number] [place] [id number] [place] pH (BldV) 7.39 [pH] Normal 7.32-7.42 [facility] Comment on above: Order Comment: Speci men Type: VENOUS BLOOD SPECIMENOrdering Facility: [facility] Address: [address] [place] [address] Performed By: #### 2 4344-4 ####[facility] LABCLIA [id number] [address] [address] [place] pH adjusted to patient's actual temperature (BldV) 7.40 Normal 7.32-7.42 [facility] Comment on above: Order Comment: Speci men Type: VENOUS BLOOD SPECIMENOrdering Facility: [facility] Address: [address] [place], [place] [address] Performed By: #### 2 4344-4 ####[facility] LABCLIA [id number] [address] [address] [place] Potassium [Moles/Vol] 4.0 mmol/L Normal 3.5-5.0 [facility] Comment on above: Order Comment: Speci men Type: VENOUS BLOOD SPECIMENOrdering Facility: [facility] Address: [address] [place] [address] Performed By: #### 2 4344-4 ####[facility] LABCLIA [id number] [place] [id number] [place] Sodium [Moles/Vol] 134 mmol/L Low 136-144 [facility] Comment on above: Order Comment: Speci men Type: VENOUS BLOOD SPECIMENOrdering Facility: [facility] Address: [address] [place] [address] Performed By: #### 2 4344-4 ####[facility] LABCLIA [id number] [place] [address] [place] Base excess Calc (BldV) [Moles/Vol] 7 mmol/L High 0-2 [facility] Comment on above: Order Comment: Speci men Type: VENOUS BLOOD SPECIMENOrdering Facility: [facility] Address: [address] [place] [address] Performed By: #### 2 4344-4 ####[facility] LABCLIA [id number] [place] [address] [place] Body temperature 98.6 [degF] Normal [facility] Comment on above: Order Comment: Speci men Type: VENOUS BLOOD SPECIMENOrdering Facility: [facility] Address: [address] [place] [address] Performed By: #### 2 4344-4 ####[facility] LABCLIA [id number] [place] [id number] [place] Calcium.ionized (Bld) [Mass/Vol] 1.16 mmol/L Normal 1.08-1.30 [facility] Comment on above: Order Comment: Speci men Type: VENOUS BLOOD SPECIMENOrdering Facility: [facility] Address: [address] [place] [address] Performed By: #### 2 4344-4 ####[facility] LABCLIA [id number] [place] [address] [place] Calcium.ionized adjusted to pH 7.4 (BldA) [Moles/Vol] 1.16 mmol/L Normal 1.08-1.30 [facility] Comment on above: Order Comment: Speci men Type: VENOUS BLOOD SPECIMENOrdering Facility: [facility] Address: [address] [place] [address] Performed By: #### 2 4344-4 ####[facility] LABIA [id number] [place] [address] [place] Carboxyhemoglobin (BldV) [Mass fraction] 1.4 % Normal 0.0-2.0 [facility] Comment on above: Order Comment: Speci men Type: VENOUS BLOOD SPECIMENOrdering Facility: [facility] Address: [address] [place] [address] Result Comment: Carb oxyhemoglobin Reference Range for Smokers: 2.0-8.0% Performed By: #### 2 4344-4 ####[facility] LABIA [id number] [place] [address] [place] CO2 (BldV) [Partial pressure] 52 mm[Hg] Normal 42-55 [facility] Comment on above: Order Comment: Speci men Type: VENOUS BLOOD SPECIMENOrdering Facility: [facility] Address: [address] [place] [address] Performed By: #### 2 4344-4 ####[facility] LABIA [id number] [place] [address] [place] Glucose [Mass/Vol] 159 mg/dL High 60-105 [facility] Comment on above: Order Comment: Speci men Type: VENOUS BLOOD SPECIMENOrdering Facility: [facility] Address: [address] [place] [address] Performed By: #### 2 4344-4 ####[facility] LABCLIA [id number] [place] [address] [place] HCO3 (Bld) [Moles/Vol] 32 mmol/L High 24-[address] [facility] Comment on above: Order Comment: Speci men Type: VENOUS BLOOD SPECIMENOrdering Facility: [facility] Address: [address] [place] [address] Performed By: #### 2 4344-4 ####[facility] LABCLIA [id number] [place] [address] [place] Hematocrit (Bld) [Volume fraction] 25.9 % Low 39.0-51.0 [facility] Comment on above: Order Comment: Speci men Type: VENOUS BLOOD SPECIMENOrdering Facility: [facility] Address: [address] [place] [address] Performed By: #### 2 4344-4 ####[facility] LABIA [id number] [place] [address] [place] Hemoglobin (Bld) [Mass/Vol] 8.3 g/dL Low 13.0-17.0 [facility] Comment on above: Order Comment: Speci men Type: VENOUS BLOOD SPECIMENOrdering Facility: [facility] Address: [address] [place] [address] Performed By: #### 2 4344-4 ####[facility] LABIA [id number] [place] [address] [place] Lactate [Moles/Vol] 0.6 mmol/L Normal 0.5-2.2 [facility] Comment on above: Order Comment: Speci men Type: VENOUS BLOOD SPECIMENOrdering Facility: [facility] Address: [address] [place] [address] Performed By: #### 2 4344-4 ####[facility] LABIA [id number] [place] [address] [place] LITERS 4 Liters/min Normal [facility] Comment on above: Order Comment: Speci men Type: VENOUS BLOOD SPECIMENOrdering Facility: [facility] Address: [address] [place] [address] Performed By: #### 2 4344-4 ####[facility] LABCLIA [id number] [address] [place] [address] [place] Methemoglobin (Bld) [Mass fraction] 2.2 % High 0.0-1.5 [facility] Comment on above: Order Comment: Speci men Type: VENOUS BLOOD SPECIMENOrdering Facility: [facility] Address: [address] [place], [place] [address] Performed By: #### 2 4344-4 ####[facility] LABCLIA [id number] [address] [place] [address] [place] O2 THERAPY NC = Nasal Cannula Normal [facility] Comment on above: Order Comment: Speci men Type: VENOUS BLOOD SPECIMENOrdering Facility: [facility] Address: [address] [place], [place] [address] Performed By: #### 2 4344-4 ####[facility] LABCLIA [id number] [address] [address] [place] Oxygen (BldV) [Partial pressure] 37 mm[Hg] Normal 35-45 [facility] Comment on above: Order Comment: Speci men Type: VENOUS BLOOD SPECIMENOrdering Facility: [facility] Address: [address] [place], [place] [address] Performed By: #### 2 4344-4 ####[facility] LABCLIA [id number] [address] [address] [place] Oxygen saturation in Venous blood 67 % Normal 60-85 [facility] Comment on above: Order Comment: Speci men Type: VENOUS BLOOD SPECIMENOrdering Facility: [facility] Address: [address] [place] [address] Performed By: #### 2 4344-4 ####[facility] LABCLIA [id number] [address] [address] [place] Oxyhemoglobin (BldV) [Mass fraction] 65 % Normal 60-85 [facility] Comment on above: Order Comment: Speci men Type: VENOUS BLOOD SPECIMENOrdering Facility: [facility] Address: [address] [place] [address] Performed By: #### 2 4344-4 ####[facility] LABIA [id number] [place] [address] [place] pH (BldV) 7.40 [pH] Normal 7.32-7.42 [facility] Comment on above: Order Comment: Speci men Type: VENOUS BLOOD SPECIMENOrdering Facility: [facility] Address: [address] [place] [address] Performed By: #### 2 4344-4 ####[facility] LABIA [id number] [place] [address] [place] Potassium [Moles/Vol] 4.4 mmol/L Normal 3.5-5.0 [facility] Comment on above: Order Comment: Speci men Type: VENOUS BLOOD SPECIMENOrdering Facility: [facility] Address: [address] [place] [address] Performed By: #### 2 4344-4 ####[facility] LABIA [id number] [place] [id number] [place] Sodium [Moles/Vol] 133 mmol/L Low 136-144 [facility] Comment on above: Order Comment: Speci men Type: VENOUS BLOOD SPECIMENOrdering Facility: [facility] Address: [address] [place] [address] Performed By: #### 2 4344-4 ####[facility] LABIA [id number] [place] [id number] [place] Magnesium SerPl-ncon 10-22 Magnesium [Mass/Vol] 2.0 mg/dL Normal 1.7-2.3 [facility] Comment on above: Order Comment: Gini nowak Type: BLOOD SPECIMENOrdering Facility: [facility] Address: [address] [place] [address] Performed By: #### 2 4323-8, 02405-4, 2777-1 ####[facility] LABCLIA [id number] [place] [address] [place] PT panel Coag (PPP)on 2024 INR Coag (PPP) [Relative time] 1.3 {INR} Normal 0.9-1.3 [facility] Comment on above: Order Comment: Gini eliu Type: BLOOD SPECIMENOrdering Facility: [facility] Address: [address] [place] [address] Result Comment: Nettie min K Antagonist (VKA) Therapeutic Range: INR 2 to 3 (Target INR of 2.5)Note: For patients treated with VKA drugs, such as warfarin, the [employer] [employer] 2012 Guideline recommends a therapeutic INR range of 2 to 3 (target INR of 2.5). This recommendation includes high-risk patients with antiphospholipid syndrome with previous arterial or venous thromboembolism, current-generation mechanical or bioprosthetic aortic heart valve replacement.Note: Patients with mechanical aortic valve replacement and additional risk factors for thromboembolic events (atrial fibrillation, previous thromboembolism, LV dysfunction, hypercoagulable conditions) or an older generation mechanical AVR (i.e., ball in-Cage) or any mechanical MVR should have a INR therapeutic range of 2.5 to 3.5 (target INR of 3).Cecile GH, et al. Chest 2012, 141:7S-47SNishimsoila RA, et al. [facility] 2017, 70: 252-289 Performed By: #### 3 4528-0 ####[facility] [id number] [place] [id number] [place] PT Coag (PPP) [Time] 14.0 s High 9.7-13.0 [facility] Comment on above: Order Comment: Gini eliu Type: BLOOD SPECIMENOrdering Facility: [facility] Address: [address] [place] [address] Performed By: #### 3 4528-0 ####[facility] LABCLIA [id number] [place] [address] [place] Phosphate SerPl-mCncon 10-22 Phosphate [Mass/Vol] 2.9 mg/dL Normal 2.7-4.8 [facility] Comment on above: Order Comment: Speci men Type: BLOOD SPECIMENOrdering Facility: [facility] Address: [address] [place] [address] Performed By: #### 2 4323-8, 16147-3, 2777-1 ####[facility] LABCLIA [id number] [address] TYPE + SCREENon 10-22-2024 ABO O Normal [facility] Comment on above: Order Comment: Speci men Type: BLOOD SPECIMENOrdering Facility: [facility] Address: [address] [place] [address] Performed By: #### T SCR ####[facility] BLOOD BANKCLIA [id number] [place] [address] [place] Rh Nom (Bld) Negative Normal [facility] Comment on above: Order Comment: Speci men Type: BLOOD SPECIMENOrdering Facility: [facility] Address: [address] [place] [address] Performed By: #### T SCR ####[facility] BANKCLIA [id number] [place] [address] [place] TYPE AND SCREEN EXPIRATION 10/25/2024 23:59 Normal [facility] Comment on above: Order Comment: Speci men Type: BLOOD SPECIMENOrdering Facility: [facility] Address: [address] [place] [address] Performed By: #### T SCR ####[facility] BLO[facility] BANKCLIA [id number] [place] [address] [place] XR CHEST 1V FRONTAL PORTon 0 10-22-2024 XR CHEST 1V FRONTAL PORT Normal [facility] ARTERIAL BLOOD GASESon 10-21 Base excess Calc (Bld) [Moles/Vol] 7 mmol/L High 0-2 [facility] Comment on above: Order Comment: Speci men Type: ARTERIAL BLOOD SPECIMENOrdering Facility: [facility] Address: [address] [place] [address] Performed By: #### A LLBG ####[facility] LABCLIA [id number] [place] [address] [place] Calcium.ionized (Bld) [Mass/Vol] 1.14 mmol/L Normal 1.08-1.30 [facility] Comment on above: Order Comment: Speci men Type: ARTERIAL BLOOD SPECIMENOrdering Facility: [facility] Address: [address] [place] [address] Performed By: #### A LLBG ####[facility] LABCLIA [id number] [place] [address] [place] Calcium.ionized adjusted to pH 7.4 (BldA) [Moles/Vol] 1.17 mmol/L Normal 1.08-1.30 [facility] Comment on above: Order Comment: Speci men Type: ARTERIAL BLOOD SPECIMENOrdering Facility: [facility] Address: [address] [place] [address] Performed By: #### A LLBG ####[facility] LABCLIA [id number] [place] [address] [place] Carboxyhemoglobin (BldA) [Mass fraction] 1.6 % Normal 0.0-2.0 [facility] Comment on above: Order Comment: Speci men Type: ARTERIAL BLOOD SPECIMENOrdering Facility: [facility] Address: [address] [place] [address] Result Comment: Carb oxyhemoglobin Reference Range for Smokers: 2.0-8.0% Performed By: #### A LLBG ####[facility] LABCLIA [id number] [address] [place] [address] [place] CO2 (Bld) [Partial pressure] 45 mm Hg Normal 36-46 [facility] Comment on above: Order Comment: Speci men Type: ARTERIAL BLOOD SPECIMENOrdering Facility: [facility] Address: [address] [place] [address] Performed By: #### A LLBG ####[facility] LABCLIA [id number] [address], [facility]95 [place] CO2 adjusted to patient's actual temperature (Bld) [Partial pressure] 44 mmHg Normal 36-46 [facility] Comment on above: Order Comment: Speci men Type: ARTERIAL BLOOD SPECIMENOrdering Facility: [facility] Address: [address] [place] [address] Performed By: #### A LLBG ####[facility] LABCLIA [id number] [place] [address] [place] Glucose [Mass/Vol] 103 mg/dL Normal 60-105 [facility] Comment on above: Order Comment: Speci men Type: ARTERIAL BLOOD SPECIMENOrdering Facility: [facility] Address: [address] [place] [address] Performed By: #### A LLBG ####[facility] LABCLIA [id number] [place] [id number] [place] Hematocrit (Bld) [Volume fraction] 27.9 % Low 39.0-51.0 [facility] Comment on above: Order Comment: Speci men Type: ARTERIAL BLOOD SPECIMENOrdering Facility: [facility] Address: [address] [place], [place] [address] Performed By: #### A LLBG ####[facility] LABCLIA [id number] [address] [address] [place] Hemoglobin (Bld) [Mass/Vol] 9.0 g/dL Low 13.0-17.0 [facility] Comment on above: Order Comment: Speci men Type: ARTERIAL BLOOD SPECIMENOrdering Facility: [facility] Address: [address] [place], [place] [address] Performed By: #### A LLBG ####[facility] LABCLIA [id number] [place] [id number] [place] Lactate [Moles/Vol] 1.4 mmol/L Normal 0.5-2.2 [facility] Comment on above: Order Comment: Speci men Type: ARTERIAL BLOOD SPECIMENOrdering Facility: [facility] Address: [address] [place] [address] Performed By: #### A LLBG ####[facility] LABCLIA [id number] [place] [address] [place] Methemoglobin (Bld) [Mass fraction] 1.3 % Normal 0.0-1.5 [facility] Comment on above: Order Comment: Speci men Type: ARTERIAL BLOOD SPECIMENOrdering Facility: [facility] Address: [address] [place] [address] Performed By: #### A LLBG ####[facility] LABCLIA [id number] [place] [id number] [place] Oxygen (Bld) [Partial pressure] 69 mm Hg Low 85-95 [facility] Comment on above: Order Comment: Speci men Type: ARTERIAL BLOOD SPECIMENOrdering Facility: [facility] Address: [address] [place] [address] Performed By: #### A LLBG ####[facility] LABCLIA [id number] [place] [id number] [place] Oxygen adjusted to patient's actual temperature (Bld) [Partial pressure] 66 mmHg Low 85-95 [facility] Comment on above: Order Comment: Speci men Type: ARTERIAL BLOOD SPECIMENOrdering Facility: [facility] Address: [address] [place], [place] [address] Performed By: #### A LLBG ####[facility] LABCLIA [id number] [place] [id number] [place] Oxyhemoglobin (BldA) [Mass fraction] 92 % Low 95-98 [facility] Comment on above: Order Comment: Speci men Type: ARTERIAL BLOOD SPECIMENOrdering Facility: [facility] Address: [address] [place] [address] Performed By: #### A LLBG ####[facility] LABCLIA [id number] [place] [address] [place] pH (Bld) 7.46 [pH] High 7.35-7.45 [facility] Comment on above: Order Comment: Speci men Type: ARTERIAL BLOOD SPECIMENOrdering Facility: [facility] Address: [address] [place] [address] Performed By: #### A LLBG ####[facility] LABCLIA [id number] [place] [address] [place] pH adjusted to patient's actual temperature (Bld) 7.47 High 7.35-7.45 [facility] Comment on above: Order Comment: Speci men Type: ARTERIAL BLOOD SPECIMENOrdering Facility: [facility] Address: [address] [place] [address] Performed By: #### A LLBG ####[facility] LABCLIA [id number] [place] [address] [place] Potassium [Moles/Vol] 4.6 mmol/L Normal 3.5-5.0 [facility] Comment on above: Order Comment: Speci men Type: ARTERIAL BLOOD SPECIMENOrdering Facility: [facility] Address: [address] [place] [address] Performed By: #### A LLBG ####[facility] LABCLIA [id number] [place] [id number] [place] Sodium [Moles/Vol] 132 mmol/L Low 136-144 [facility] Comment on above: Order Comment: Speci men Type: ARTERIAL BLOOD SPECIMENOrdering Facility: [facility] Address: [address] [place] [address] Performed By: #### A LLBG ####[facility] [id number] [place] [address] [place] Base excess Calc (Bld) [Moles/Vol] 6 mmol/L High 0-2 [facility] Comment on above: Order Comment: Speci men Type: ARTERIAL BLOOD SPECIMENOrdering Facility: [facility] Address: [address] [place] [address] Performed By: #### A LLBG ####[facility] [id number] [place] [address] [place] Calcium.ionized (Bld) [Mass/Vol] 1.14 mmol/L Normal 1.08-1.30 [facility] Comment on above: Order Comment: Speci men Type: ARTERIAL BLOOD SPECIMENOrdering Facility: [facility] Address: [address] [place] [address] Performed By: #### A LLBG ####[facility] [id number] [place] [address] [place] Calcium.ionized adjusted to pH 7.4 (BldA) [Moles/Vol] 1.17 mmol/L Normal 1.08-1.30 [facility] Comment on above: Order Comment: Speci men Type: ARTERIAL BLOOD SPECIMENOrdering Facility: [facility] Address: [address] [place] [address] Performed By: #### A LLBG ####[facility] [id number] [place] [address] [place] Carboxyhemoglobin (BldA) [Mass fraction] 1.0 % Normal 0.0-2.0 [facility] Comment on above: Order Comment: Speci men Type: ARTERIAL BLOOD SPECIMENOrdering Facility: [facility] Address: [address] [place] [address] Result Comment: Carb oxyhemoglobin Reference Range for Smokers: 2.0-8.0% Performed By: #### A LLBG ####[facility] LABCLIA [id number] [place] [address] [place] CO2 (Bld) [Partial pressure] 43 mm Hg Normal 36-46 [facility] Comment on above: Order Comment: Speci men Type: ARTERIAL BLOOD SPECIMENOrdering Facility: [facility] Address: [address] [place] [address] Performed By: #### A LLBG ####[facility] LABCLIA [id number] [address] [place] CO2 adjusted to patient's actual temperature (Bld) [Partial pressure] 42 mmHg Normal 36-46 [facility] Comment on above: Order Comment: Speci men Type: ARTERIAL BLOOD SPECIMENOrdering Facility: [facility] Address: [address] [place] [address] Performed By: #### A LLBG ####[facility] LABCLIA [id number] [place] [address] [place] Glucose [Mass/Vol] 168 mg/dL High 60-105 [facility] Comment on above: Order Comment: Speci men Type: ARTERIAL BLOOD SPECIMENOrdering Facility: [facility] Address: [address] [place] [address] Performed By: #### A LLBG ####[facility] LABCLIA [id number] [place] [id number] [place] HCO3 (Bld) [Moles/Vol] 30 mmol/L High 22-[address] [facility] Comment on above: Order Comment: Speci men Type: ARTERIAL BLOOD SPECIMENOrdering Facility: [facility] Address: [address] [place] [address] Performed By: #### A LLBG ####[facility] LABCLIA [id number] [place] [address] [place] Hematocrit (Bld) [Volume fraction] 30.7 % Low 39.0-51.0 [facility] Comment on above: Order Comment: Speci men Type: ARTERIAL BLOOD SPECIMENOrdering Facility: [facility] Address: [address] [place] [address] Performed By: #### A LLBG ####[facility] LABIA [id number] [place] [address] [place] Hemoglobin (Bld) [Mass/Vol] 9.9 g/dL Low 13.0-17.0 [facility] Comment on above: Order Comment: Speci men Type: ARTERIAL BLOOD SPECIMENOrdering Facility: [facility] Address: [address] [place] [address] Performed By: #### A LLBG ####[facility] LABIA [id number] [place] [address] [place] Lactate [Moles/Vol] 0.8 mmol/L Normal 0.5-2.2 [facility] Comment on above: Order Comment: Speci men Type: ARTERIAL BLOOD SPECIMENOrdering Facility: [facility] Address: [address] [place] [address] Performed By: #### A LLBG ####[facility] LABIA [id number] [place] [address] [place] Methemoglobin (Bld) [Mass fraction] 1.9 % High 0.0-1.5 [facility] Comment on above: Order Comment: Speci men Type: ARTERIAL BLOOD SPECIMENOrdering Facility: [facility] Address: [address] [place] [address] Performed By: #### A LLBG ####[facility] LABCLIA [id number] [place] [id number] [place] Oxygen (Bld) [Partial pressure] 99 mm Hg High 85-95 [facility] Comment on above: Order Comment: Speci men Type: ARTERIAL BLOOD SPECIMENOrdering Facility: [facility] Address: [address] [place] [address] Performed By: #### A LLBG ####[facility] LABCLIA [id number] [address] [address] [place] Oxygen adjusted to patient's actual temperature (Bld) [Partial pressure] 96 mmHg High 85-95 [facility] Comment on above: Order Comment: Speci men Type: ARTERIAL BLOOD SPECIMENOrdering Facility: [facility] Address: [address] [place] [address] Performed By: #### A LLBG ####[facility] LABCLIA [id number] [address] [address] [place] Oxyhemoglobin (BldA) [Mass fraction] 95 % Normal 95-98 [facility] Comment on above: Order Comment: Speci men Type: ARTERIAL BLOOD SPECIMENOrdering Facility: [facility] Address: [address] [place] [address] Performed By: #### A LLBG ####[facility] LABCLIA [id number] [address] [address] [place] pH (Bld) 7.46 [pH] High 7.35-7.45 [facility] Comment on above: Order Comment: Speci men Type: ARTERIAL BLOOD SPECIMENOrdering Facility: [facility] Address: [address] [place] [address] Performed By: #### A LLBG ####[facility] LABCLIA [id number] [address] [place] [address] [place] pH adjusted to patient's actual temperature (Bld) 7.47 High 7.35-7.45 [facility] Comment on above: Order Comment: Speci men Type: ARTERIAL BLOOD SPECIMENOrdering Facility: [facility] Address: [address] [place] [address] Performed By: #### A LLBG ####[facility] LABCLIA [id number] [address] [place] [address] [place] Potassium [Moles/Vol] 4.5 mmol/L Normal 3.5-5.0 [facility] Comment on above: Order Comment: Speci men Type: ARTERIAL BLOOD SPECIMENOrdering Facility: [facility] Address: [address] [place] [address] Performed By: #### A LLBG ####[facility] LABCLIA [id number] [place] [address] [place] Sodium [Moles/Vol] 131 mmol/L Low 136-144 [facility] Comment on above: Order Comment: Speci men Type: ARTERIAL BLOOD SPECIMENOrdering Facility: [facility] Address: [address] [place] [address] Performed By: #### A LLBG ####[facility] LABCLIA [id number] [place] [address] [place] Base excess Calc (Bld) [Moles/Vol] 5 mmol/L High 0-2 [facility] Comment on above: Order Comment: Speci men Type: ARTERIAL BLOOD SPECIMENOrdering Facility: [facility] Address: [address] [place] [address] Performed By: #### A LLBG ####[facility] LABCLIA [id number] [place] [address] [place] Body temperature 98.6 [degF] Normal [facility] Comment on above: Order Comment: Speci men Type: ARTERIAL BLOOD SPECIMENOrdering Facility: [facility] Address: [address] [place] [address] Performed By: #### A LLBG ####[facility] LABCLIA [id number] [address] [place] Order Comment: Speci men Type: VENOUS BLOOD SPECIMENOrdering Facility: [facility] Address: [address] [place] [address] Performed By: #### 2 4344-4 ####[facility] LABCLIA [id number] [place] [address] [place] Calcium.ionized (Bld) [Mass/Vol] 1.16 mmol/L Normal 1.08-1.30 [facility] Comment on above: Order Comment: Speci men Type: ARTERIAL BLOOD SPECIMENOrdering Facility: [facility] Address: [address] [place] [address] Performed By: #### A LLBG ####[facility] LABCLIA [id number] [place] [address] [place] Calcium.ionized adjusted to pH 7.4 (BldA) [Moles/Vol] 1.19 mmol/L Normal 1.08-1.30 [facility] Comment on above: Order Comment: Speci men Type: ARTERIAL BLOOD SPECIMENOrdering Facility: [facility] Address: [address] [place] [address] Performed By: #### A LLBG ####[facility] LABIA [id number] [place] [address] [place] Carboxyhemoglobin (BldA) [Mass fraction] 1.2 % Normal 0.0-2.0 [facility] Comment on above: Order Comment: Speci men Type: ARTERIAL BLOOD SPECIMENOrdering Facility: [facility] Address: [address] [place] [address] Result Comment: Carb oxyhemoglobin Reference Range for Smokers: 2.0-8.0% Performed By: #### A LLBG ####[facility] LABCLIA [id number] [place] [address] [place] CO2 (Bld) [Partial pressure] 44 mm Hg Normal 36-46 [facility] Comment on above: Order Comment: Speci men Type: ARTERIAL BLOOD SPECIMENOrdering Facility: [facility] Address: [address] [place] [address] Performed By: #### A LLBG ####[facility] LABCLIA [id number] [place] [address] [place] Glucose [Mass/Vol] 139 mg/dL High 60-105 [facility] Comment on above: Order Comment: Speci men Type: ARTERIAL BLOOD SPECIMENOrdering Facility: [facility] Address: [address] [place] [address] Performed By: #### A LLBG ####[facility] LABCLIA [id number] [place] [address] [place] HCO3 (Bld) [Moles/Vol] 30 mmol/L High 22-[address] [facility] Comment on above: Order Comment: Speci men Type: ARTERIAL BLOOD SPECIMENOrdering Facility: [facility] Address: [address] [place] [address] Performed By: #### A LLBG ####[facility] LABCLIA [id number] [place] [address] [place] Hematocrit (Bld) [Volume fraction] 29.4 % Low 39.0-51.0 [facility] Comment on above: Order Comment: Speci men Type: ARTERIAL BLOOD SPECIMENOrdering Facility: [facility] Address: [address] [place] [address] Performed By: #### A LLBG ####[facility] LABCLIA [id number] [place] [address] [place] Hemoglobin (Bld) [Mass/Vol] 9.5 g/dL Low 13.0-17.0 [facility] Comment on above: Order Comment: Speci men Type: ARTERIAL BLOOD SPECIMENOrdering Facility: [facility] Address: [address] [place] [address] Performed By: #### A LLBG ####[facility] LABCLIA [id number] [place] [address] [place] Lactate [Moles/Vol] 0.7 mmol/L Normal 0.5-2.2 [facility] Comment on above: Order Comment: Speci men Type: ARTERIAL BLOOD SPECIMENOrdering Facility: [facility] Address: [address] [place] [address] Performed By: #### A LLBG ####[facility] LABCLIA [id number] [address] [address] [place] Order Comment: Speci men Type: VENOUS BLOOD SPECIMENOrdering Facility: [facility] Address: [address] [place], [place] [address] Performed By: #### 2 4344-4 ####[facility] LABCLIA [id number] [address] [address] [place] LITERS 3 Liters/min Normal [facility] Comment on above: Order Comment: Speci men Type: ARTERIAL BLOOD SPECIMENOrdering Facility: [facility] Address: [address] [place], [place] [address] Performed By: #### A LLBG ####[facility] LABCLIA [id number] [place] [id number] [place] Order Comment: Speci men Type: VENOUS BLOOD SPECIMENOrdering Facility: [facility] Address: [address] [place], [place] [address] Performed By: #### 2 4344-4 ####[facility] LABCLIA [id number] [address] [address] [place] Methemoglobin (Bld) [Mass fraction] 0.7 % Normal 0.0-1.5 [facility] Comment on above: Order Comment: Speci men Type: ARTERIAL BLOOD SPECIMENOrdering Facility: [facility] Address: [address] [place], [place] [address] Performed By: #### A LLBG ####[facility] LABCLIA [id number] [place] [id number] [place] O2 THERAPY NC = Nasal Cannula Normal [facility] Comment on above: Order Comment: Speci men Type: ARTERIAL BLOOD SPECIMENOrdering Facility: [facility] Address: [address] [place], [place] [address] Performed By: #### A LLBG ####[facility] LABCLIA [id number] [place] [id number] [place] Order Comment: Speci men Type: VENOUS BLOOD SPECIMENOrdering Facility: [facility] Address: [address] [place] [address] Performed By: #### 2 4344-4 ####[facility] LABCLIA [id number] [place] [id number] [place] Oxygen (Bld) [Partial pressure] 99 mm Hg High 85-95 [facility] Comment on above: Order Comment: Speci men Type: ARTERIAL BLOOD SPECIMENOrdering Facility: [facility] Address: [address] [place] [address] Performed By: #### A LLBG ####[facility] LABCLIA [id number] [place] [address] [place] Oxyhemoglobin (BldA) [Mass fraction] 96 % Normal 95-98 [facility] Comment on above: Order Comment: Speci men Type: ARTERIAL BLOOD SPECIMENOrdering Facility: [facility] Address: [address] [place] [address] Performed By: #### A LLBG ####[facility] LABCLIA [id number] [place] [id number] [place] pH (Bld) 7.45 [pH] Normal 7.35-7.45 [facility] Comment on above: Order Comment: Speci men Type: ARTERIAL BLOOD SPECIMENOrdering Facility: [facility] Address: [address] [place] [address] Performed By: #### A LLBG ####[facility] LABCLIA [id number] [place] [address] [place] Potassium [Moles/Vol] 4.7 mmol/L Normal 3.5-5.0 [facility] Comment on above: Order Comment: Speci men Type: ARTERIAL BLOOD SPECIMENOrdering Facility: [facility] Address: [address] [place] [address] Performed By: #### A LLBG ####[facility] LABCLIA [id number] [place] [address] [place] Sodium [Moles/Vol] 132 mmol/L Low 136-144 [facility] Comment on above: Order Comment: Speci men Type: ARTERIAL BLOOD SPECIMENOrdering Facility: [facility] Address: [address] [place] [address] Performed By: #### A LLBG ####[facility] LABCLIA [id number] [place] [address] [place] Base excess Calc (Bld) [Moles/Vol] 3 mmol/L High 0-2 [facility] Comment on above: Order Comment: Speci men Type: ARTERIAL BLOOD SPECIMENOrdering Facility: [facility] Address: [address] [place] [address] Performed By: #### A LLBG ####[facility] LABCLIA [id number] [place] [address] [place] Body temperature 97.88 [degF] Normal [facility] Comment on above: Order Comment: Speci men Type: ARTERIAL BLOOD SPECIMENOrdering Facility: [facility] Address: [address] [place] [address] Performed By: #### A LLBG ####[facility] LABCLIA [id number] [place] [address] [place] Order Comment: Speci men Type: VENOUS BLOOD SPECIMENOrdering Facility: [facility] Address: [address] [place] [address] Performed By: #### 2 4344-4 ####[facility] LABCLIA [id number] [place] [address] [place] Calcium.ionized (Bld) [Mass/Vol] 1.17 mmol/L Normal 1.08-1.30 [facility] Comment on above: Order Comment: Speci men Type: ARTERIAL BLOOD SPECIMENOrdering Facility: [facility] Address: [address] [place] [address] Performed By: #### A LLBG ####[facility] LABCLIA [id number] [place] [address] [place] Calcium.ionized adjusted to pH 7.4 (BldA) [Moles/Vol] 1.16 mmol/L Normal 1.08-1.30 [facility] Comment on above: Order Comment: Speci men Type: ARTERIAL BLOOD SPECIMENOrdering Facility: [facility] Address: [address] [place] [address] Performed By: #### A LLBG ####[facility] LABCLIA [id number] [place] [address] [place] Carboxyhemoglobin (BldA) [Mass fraction] 1.4 % Normal 0.0-2.0 [facility] Comment on above: Order Comment: Speci men Type: ARTERIAL BLOOD SPECIMENOrdering Facility: [facility] Address: [address] [place] [address] Result Comment: Carb oxyhemoglobin Reference Range for Smokers: 2.0-8.0% Performed By: #### A LLBG ####[facility] LABCLIA [id number] [place] [id number] [place] CO2 (Bld) [Partial pressure] 47 mm Hg High 36-46 [facility] Comment on above: Order Comment: Speci men Type: ARTERIAL BLOOD SPECIMENOrdering Facility: [facility] Address: [address] [place] [address] Performed By: #### A LLBG ####[facility] LABCLIA [id number] [place] [id number] [place] CO2 adjusted to patient's actual temperature (Bld) [Partial pressure] 46 mmHg Normal 36-46 [facility] Comment on above: Order Comment: Speci men Type: ARTERIAL BLOOD SPECIMENOrdering Facility: [facility] Address: [address] [place] [address] Performed By: #### A LLBG ####[facility] LABCLIA [id number] [address] [place] [address] [place] Glucose [Mass/Vol] 198 mg/dL High 60-105 [facility] Comment on above: Order Comment: Speci men Type: ARTERIAL BLOOD SPECIMENOrdering Facility: [facility] Address: [address] [place] [address] Performed By: #### A LLBG ####[facility] LABCLIA [id number] [address], [facility]95 [place] HCO3 (Bld) [Moles/Vol] 28 mmol/L High 22-[address] [facility] Comment on above: Order Comment: Speci men Type: ARTERIAL BLOOD SPECIMENOrdering Facility: [facility] Address: [address] [place] [address] Performed By: #### A LLBG ####[facility] LABCLIA [id number] [address], [facility]95 [place] Hematocrit (Bld) [Volume fraction] 26.5 % Low 39.0-51.0 [facility] Comment on above: Order Comment: Speci men Type: ARTERIAL BLOOD SPECIMENOrdering Facility: [facility] Address: [address] [place] [address] Performed By: #### A LLBG ####[facility] LABCLIA [id number] [address] [place] [address] [place] Order Comment: Speci men Type: VENOUS BLOOD SPECIMENOrdering Facility: [facility] Address: [address] [place] [address] Performed By: #### 2 4344-4 ####[facility] LABCLIA [id number] [address] [place] [address] [place] Hemoglobin (Bld) [Mass/Vol] 8.5 g/dL Low 13.0-17.0 [facility] Comment on above: Order Comment: Speci men Type: ARTERIAL BLOOD SPECIMENOrdering Facility: [facility] Address: [address] [place] [address] Performed By: #### A LLBG ####[facility] LABCLIA [id number] [address] [place] [address] [place] Order Comment: Speci men Type: VENOUS BLOOD SPECIMENOrdering Facility: [facility] Address: [address] [place] [address] Performed By: #### 2 4344-4 ####[facility] LABCLIA [id number] [address], [place] [address] [place] Lactate [Moles/Vol] 1.6 mmol/L Normal 0.5-2.2 [facility] Comment on above: Order Comment: Speci men Type: ARTERIAL BLOOD SPECIMENOrdering Facility: [facility] Address: [address] [place] [address] Performed By: #### A LLBG ####[facility] LABCLIA [id number] [address], [place] [address] [place] LITERS 3 Liters/min Normal [facility] Comment on above: Order Comment: Speci men Type: ARTERIAL BLOOD SPECIMENOrdering Facility: [facility] Address: [address] [place] [address] Performed By: #### A LLBG ####[facility] LABCLIA [id number] [address] [place] [address] [place] Order Comment: Speci men Type: VENOUS BLOOD SPECIMENOrdering Facility: [facility] Address: [address] [place] [address] Performed By: #### 2 4344-4 ####[facility] LABCLIA [id number] [address] [place] [address] [place] Methemoglobin (Bld) [Mass fraction] 1.6 % High 0.0-1.5 [facility] Comment on above: Order Comment: Speci men Type: ARTERIAL BLOOD SPECIMENOrdering Facility: [facility] Address: [address] [place] [address] Performed By: #### A LLBG ####[facility] LABCLIA [id number] [address] [place] [address] [place] O2 THERAPY NC = Nasal Cannula Normal [facility] Comment on above: Order Comment: Speci men Type: ARTERIAL BLOOD SPECIMENOrdering Facility: [facility] Address: [address] [place] [id number] Performed By: #### A LLBG ####[facility] LABCLIA [id number] [address] [address] [place] Order Comment: Speci men Type: VENOUS BLOOD SPECIMENOrdering Facility: [facility] Address: [address] [place], [place] [address] Performed By: #### 2 4344-4 ####[facility] LABCLIA [id number] [address] [place] [address] [place] Oxygen (Bld) [Partial pressure] 111 mm Hg High 85-95 [facility] Comment on above: Order Comment: Speci men Type: ARTERIAL BLOOD SPECIMENOrdering Facility: [facility] Address: [address] [place] [address] Performed By: #### A LLBG ####[facility] LABCLIA [id number] [address] [place] [address] [place] Oxygen adjusted to patient's actual temperature (Bld) [Partial pressure] 108 mmHg High 85-95 [facility] Comment on above: Order Comment: Speci men Type: ARTERIAL BLOOD SPECIMENOrdering Facility: [facility] Address: [address] [place] [address] Performed By: #### A LLBG ####[facility] LABCLIA [id number] [address] [place] [address] [place] Oxyhemoglobin (BldA) [Mass fraction] 97 % Normal 95-98 [facility] Comment on above: Order Comment: Speci men Type: ARTERIAL BLOOD SPECIMENOrdering Facility: [facility] Address: [address] [place] [address] Performed By: #### A LLBG ####[facility] LABCLIA [id number] [address] [address] [place] pH (Bld) 7.39 [pH] Normal 7.35-7.45 [facility] Comment on above: Order Comment: Speci men Type: ARTERIAL BLOOD SPECIMENOrdering Facility: [facility] Address: [address] [place] [address] Performed By: #### A LLBG ####[facility] LABCLIA [id number] [address] [place] pH adjusted to patient's actual temperature (Bld) 7.40 Normal 7.35-7.45 [facility] Comment on above: Order Comment: Speci men Type: ARTERIAL BLOOD SPECIMENOrdering Facility: [facility] Address: [address] [place] [address] Performed By: #### A LLBG ####[facility] LABIA [id number] [place] [address] [place] Potassium [Moles/Vol] 4.6 mmol/L Normal 3.5-5.0 [facility] Comment on above: Order Comment: Speci men Type: ARTERIAL BLOOD SPECIMENOrdering Facility: [facility] Address: [address] [place] [address] Performed By: #### A LLBG ####[facility] LABIA [id number] [place] [id number] [place] CBC panel Auto (Bld)on 10-21 Erythrocyte distribution width (RBC) [Ratio] 17.3 % High 11.5-15.0 [facility] Comment on above: Order Comment: Speci men Type: BLOOD SPECIMENOrdering Facility: [facility] Address: [address] [place] [address] Performed By: #### 5 8410-2 ####[facility] LABCLIA [id number] [place] [address] [place] Hematocrit (Bld) [Volume fraction] 27.1 % Low 39.0-51.0 [facility] Comment on above: Order Comment: Speci men Type: BLOOD SPECIMENOrdering Facility: [facility] Address: [address] [place] [address] Performed By: #### 5 8410-2 ####[facility] LABIA [id number] [place] [address] [place] Hemoglobin (Bld) [Mass/Vol] 8.7 g/dL Low 13.0-17.0 [facility] Comment on above: Order Comment: Speci men Type: BLOOD SPECIMENOrdering Facility: [facility] Address: [address] [place] [address] Performed By: #### 5 8410-2 ####[facility] LABIA [id number] [place] [address] [place] MCH (RBC) [Entitic mass] 31.8 pg Normal 26.0-34.0 [facility] Comment on above: Order Comment: Speci men Type: BLOOD SPECIMENOrdering Facility: [facility] Address: [address] [place] [address] Performed By: #### 5 8410-2 ####[facility] LABIA [id number] [place] [address] [place] MCHC (RBC) [Mass/Vol] 32.1 g/dL Normal 30.5-36.0 [facility] Comment on above: Order Comment: Speci men Type: BLOOD SPECIMENOrdering Facility: [facility] Address: [address] [place] [address] Performed By: #### 5 8410-2 ####[facility] LABCLIA [id number] [place] [address] [place] MCV (RBC) [Entitic vol] 98.9 fL Normal 80.0-100.0 [facility] Comment on above: Order Comment: Speci men Type: BLOOD SPECIMENOrdering Facility: [facility] Address: [address] [place] [address] Performed By: #### 5 8410-2 ####[facility] LABIA [id number] [place] [address] [place] Nucleated RBC (Bld) [#/Vol] 10*3/uL Normal <0.01 [facility] Comment on above: Order Comment: Speci men Type: BLOOD SPECIMENOrdering Facility: [facility] Address: [address] [place] [address] Performed By: #### 5 8410-2 ####[facility] LABIA [id number] [place] [address] [place] Platelet mean volume (Bld) [Entitic vol] 12.0 fL Normal 9.0-12.7 [facility] Comment on above: Order Comment: Speci men Type: BLOOD SPECIMENOrdering Facility: [facility] Address: [address] [place] [address] Performed By: #### 5 8410-2 ####[facility] LABIA [id number] [place] [address] [place] Platelets (Bld) [#/Vol] 114 10*3/uL Low 150-400 [facility] Comment on above: Order Comment: Speci men Type: BLOOD SPECIMENOrdering Facility: [facility] Address: [address] [place] [address] Performed By: #### 5 8410-2 ####[facility] LABCLIA [id number] [place] [address] [place] RBC (Bld) [#/Vol] 2.74 10*6/uL Low 4.20-6.00 [facility] Comment on above: Order Comment: Speci men Type: BLOOD SPECIMENOrdering Facility: [facility] Address: [address] [place] [address] Performed By: #### 5 8410-2 ####[facility] LABCLIA [id number] [address] [address] [place] WBC (Bld) [#/Vol] 4.74 10*3/uL Normal 3.70-11.00 [facility] Comment on above: Order Comment: Speci men Type: BLOOD SPECIMENOrdering Facility: [facility] Address: [address] [place] [address] Performed By: #### 5 8410-2 ####[facility] LABCLIA [id number] [place] [address] [place] Comp Metab 2000 Pnl SerPlon 10-21-2024 Sodium [Moles/Vol] 133 mmol/L Low 136-144 [facility] Comment on above: Order Comment: Speci men Type: BLOOD SPECIMENOrdering Facility: [facility] Address: [address] [place] [address] Performed By: #### 2 4323-8, 74738-2, 2777-1 ####[facility] LABCLIA [id number] [place] [address] [place] Order Comment: Speci men Type: ARTERIAL BLOOD SPECIMENOrdering Facility: [facility] Address: [address] [place] [address] Performed By: #### A LLBG ####[facility] LABCLIA [id number] [place] [id number] [place] Comprehensive metabolic 2000 panelon 10-21-2024 Albumin [Mass/Vol] 2.6 g/dL Low 3.9-4.9 [facility] Comment on above: Order Comment: Speci men Type: BLOOD SPECIMENOrdering Facility: [facility] Address: [address] [place] [address] Performed By: #### 2 4323-8, 19960-0, 2776- ####[facility] LABCLIA [id number] [address] [address] [place] ALP [Catalytic activity/Vol] 99 U/L Normal 38-113 [facility] Comment on above: Order Comment: Speci men Type: BLOOD SPECIMENOrdering Facility: [facility] Address: [address] [place] [address] Performed By: #### 2 4323-8, , 2776-02 ####[facility] LABCLIA [id number] [place] [address] [place] ALT [Catalytic activity/Vol] 12 U/L Normal 10-54 [facility] Comment on above: Order Comment: Speci men Type: BLOOD SPECIMENOrdering Facility: [facility] Address: [address] [place] [address] Performed By: #### 2 4323-8, , 2776-02 ####[facility] LABCLIA [id number] [place] [id number] [place] Anion gap [Moles/Vol] 8 mmol/L Normal 8-15 [facility] Comment on above: Order Comment: Speci men Type: BLOOD SPECIMENOrdering Facility: [facility] Address: [address] [place], [place] [address] Performed By: #### 2 4323-8, , 2776-02 ####[facility] LABCLIA [id number] [address] [address] [place] AST [Catalytic activity/Vol] 23 U/L Normal 14-40 [facility] Comment on above: Order Comment: Speci men Type: BLOOD SPECIMENOrdering Facility: [facility] Address: [address] [place], [place] [address] Performed By: #### 2 4323-8, 86634-5, 2776-02 ####[facility] LABCLIA [id number] [address] [address] [place] Bilirubin [Mass/Vol] 0.2 mg/dL Normal 0.2-1.3 [facility] Comment on above: Order Comment: Speci men Type: BLOOD SPECIMENOrdering Facility: [facility] Address: [address] [place], [place] [address] Performed By: #### 2 4323-8, , 2776-02 ####[facility] LABCLIA [id number] [address] [address] [place] Calcium [Mass/Vol] 8.1 mg/dL Low 8.5-10.2 [facility] Comment on above: Order Comment: Speci men Type: BLOOD SPECIMENOrdering Facility: [facility] Address: [address] [place], [place] [address] Performed By: #### 2 4323-8, , 2776-02 ####[facility] LABCLIA [id number] [place] [id number] [place] Chloride [Moles/Vol] 98 mmol/L Normal 98-107 [facility] Comment on above: Order Comment: Speci men Type: BLOOD SPECIMENOrdering Facility: [facility] Address: [address] [place], [place] [address] Performed By: #### 2 4323-8, , 2776-02 ####[facility] LABCLIA [id number] [address] [address] [place] CO2 [Moles/Vol] 27 mmol/L Normal 22-30 [facility] Comment on above: Order Comment: Speci men Type: BLOOD SPECIMENOrdering Facility: [facility] Address: [address] [place], [place] [address] Performed By: #### 2 4323-8, , 2776-02 ####[facility] LABCLIA [id number] [address] [address] [place] Creatinine [Mass/Vol] 1.45 mg/dL High 0.73-1.22 [facility] Comment on above: Order Comment: Gini nowak Type: BLOOD SPECIMENOrdering Facility: [facility] Address: [address] [place] [id number] Performed By: #### 2 4323-8, 08332-4, 2776-02 ####[facility] LABIA [id number] [place] [id number] [place] eGFRcr SerPlBld CKD-EPI 2020 54 mL/min/1.73m??? Low >=60 [facility] Comment on above: Order Comment: Gini nowak Type: BLOOD SPECIMENOrdering Facility: [facility] Address: [address] [place] [address] Result Comment: Gurwinder mated Glomerular Filtration Rate [...] actual GFR. Performed By: #### 2 4323-8, , 2776-02 ####[facility] LABIA [id number] [address] [address] [place] Glucose [Mass/Vol] 193 mg/dL High 74-99 [facility] Comment on above: Order Comment: Gini nowak Type: BLOOD SPECIMENOrdering Facility: [facility] Address: [address] [place] [address] Result Comment: The [place] [employer] (ADA) provides guidance for cutoff values for fasting glucose and random glucose. The ADA defines fasting as no caloric intake for at least 8 hours. Fasting plasma glucose results between 100 to 125 mg/dL indicate increased risk for diabetes (prediabetes).Fasting plasma glucose results greater than or equal to 126 mg/dL meet the criteria for diagnosis of diabetes. In the absence of unequivocal hyperglycemia, results should be confirmed by repeat testing. In a patient with classic symptoms of hyperglycemia or hyperglycemic crisis, random plasma glucose results greater than or equal to 200 mg/dL meet the criteria for diagnosis of diabetes.Reference: Standards of Medical Care in Diabetes 2016, [place] [employer]. Diabetes Care. 2016.39(Suppl 1). Performed By: #### 2 4323-8, 13295-2, 2776- ####[facility] LABCLIA [id number] [place] [id number] [place] Potassium [Moles/Vol] 4.8 mmol/L Normal 3.7-5.1 [facility] Comment on above: Order Comment: Speci men Type: BLOOD SPECIMENOrdering Facility: [facility] Address: [address] [place] [address] Performed By: #### 2 4323-8, , 2776-02 ####[facility] LABCLIA [id number] [place] [id number] [place] Protein [Mass/Vol] 5.0 g/dL Low 6.3-8.0 [facility] Comment on above: Order Comment: Speci men Type: BLOOD SPECIMENOrdering Facility: [facility] Address: [address] [place] [address] Performed By: #### 2 4323-8, , 2776-02 ####[facility] LABCLIA [id number] [place] [address] [place] Urea nitrogen [Mass/Vol] 22 mg/dL Normal 9-24 [facility] Comment on above: Order Comment: Speci men Type: BLOOD SPECIMENOrdering Facility: [facility] Address: [address] [place] [address] Performed By: #### 2 4323-8, , 2776-02 ####[facility] LABCLIA [id number] [address] [address] [place] Fact Xa PPP-aCncon 09-13-202 5 Coagulation factor X activated act Coag Qn (PPP) 0.53 IU/mL High <0.10 [facility] Comment on above: Order Comment: Speci men Type: BLOOD SPECIMENOrdering Facility: [facility] Address: [address] [place] [address] Result Comment: The recommended therapeutic range for treatment of venous and arterial thrombosis with intravenous unfractionated heparin is an anti Xa activity level of 0.3 to 0.7 IU/mL. In patients with concomitant therapy with thrombolytic agents and/or platelet glycoprotein IIb/IIIa antagonists, the recommended therapeutic range is an anti Xa activity level of 0.2 to 0.5 IU/mL. Performed By: #### 3 217-7 ####[facility] LABIA [id number] [place] [address] [place] Gas + CO Pnl BldVon 10-22-19 25 Body temperature 97.52 [degF] Normal [facility] Comment on above: Order Comment: Speci men Type: VENOUS BLOOD SPECIMENOrdering Facility: [facility] Address: [address] [place] [address] Performed By: #### 2 4344-4 ####[facility] LABIA [id number] [place] [address] [place] Order Comment: Speci men Type: ARTERIAL BLOOD SPECIMENOrdering Facility: [facility] Address: [address] [place] [address] Performed By: #### A LLBG ####[facility] LABIA [id number] [place] [address] [place] HCO3 (Bld) [Moles/Vol] 31 mmol/L High 22-26 [facility] Comment on above: Order Comment: Speci men Type: VENOUS BLOOD SPECIMENOrdering Facility: [facility] Address: [address] [place] [address] Performed By: #### 2 4344-4 ####[facility] LABIA [id number] [address] [id number] [address] [place] Order Comment: Speci men Type: ARTERIAL BLOOD SPECIMENOrdering Facility: [facility] Address: [address] [place] [address] Performed By: #### A LLBG ####[facility] LABCLIA [id number] [address] [place] [address] [place] LITERS 3 Liters/min Normal [facility] Comment on above: Order Comment: Speci men Type: VENOUS BLOOD SPECIMENOrdering Facility: [facility] Address: [address] [place] [address] Performed By: #### 2 4344-4 ####[facility] LABCLIA [id number] [address] [place] [address] [place] Order Comment: Speci men Type: ARTERIAL BLOOD SPECIMENOrdering Facility: [facility] Address: [address] [place] [address] Performed By: #### A LLBG ####[facility] LABCLIA [id number] [address] [place] [address] [place] O2 THERAPY NC = Nasal Cannula Normal [facility] Comment on above: Order Comment: Speci men Type: VENOUS BLOOD SPECIMENOrdering Facility: [facility] Address: [address] [place] [address] Performed By: #### 2 4344-4 ####[facility] LABCLIA [id number] [address] [place] [address] [place] Order Comment: Speci men Type: ARTERIAL BLOOD SPECIMENOrdering Facility: [facility] Address: [address] [place] [address] Performed By: #### A LLBG ####[facility] LABCLIA [id number] [address] [place] [address] [place] Body temperature 97.52 [degF] Normal [facility] Comment on above: Order Comment: Speci men Type: VENOUS BLOOD SPECIMENOrdering Facility: [facility] Address: [address] [place] [address] Performed By: #### 2 4344-4 ####[facility] LABCLIA [id number] [address] [place] [address] [place] Order Comment: Speci men Type: ARTERIAL BLOOD SPECIMENOrdering Facility: [facility] Address: [address] [place] [address] Performed By: #### A LLBG ####[facility] LABCLIA [id number] [address] [place] [address] [place] LITERS 3 Liters/min Normal [facility] Comment on above: Order Comment: Speci men Type: VENOUS BLOOD SPECIMENOrdering Facility: [facility] Address: [address] [place], [place] [address] Performed By: #### 2 4344-4 ####[facility] LABCLIA [id number] [address] [place] [address] [place] Order Comment: Speci men Type: ARTERIAL BLOOD SPECIMENOrdering Facility: [facility] Address: [address] [place] [id number] Performed By: #### A LLBG ####[facility] LABCLIA [id number] [address] [place] [address] [place] O2 THERAPY NC = Nasal Cannula Normal [facility] Comment on above: Order Comment: Speci men Type: VENOUS BLOOD SPECIMENOrdering Facility: [facility] Address: [address] [place] [address] Performed By: #### 2 4344-4 ####[facility] LABCLIA [id number] [address] [place] [address] [place] Order Comment: Speci men Type: ARTERIAL BLOOD SPECIMENOrdering Facility: [facility] Address: [address] [place] [address] Performed By: #### A LLBG ####[facility] LABCLIA [id number] [address] [id number] [address] [place] Gas and Carbon monoxide pane l (BldV)on 10-21-2024 Base excess Calc (BldV) [Moles/Vol] 5 mmol/L High 0-2 [facility] Comment on above: Order Comment: Speci men Type: VENOUS BLOOD SPECIMENOrdering Facility: [facility] Address: [address] [place] [address] Performed By: #### 2 4344-4 ####[facility] LABIA [id number] [address] [place] Body temperature 98.6 [degF] Normal [facility] Comment on above: Order Comment: Speci men Type: VENOUS BLOOD SPECIMENOrdering Facility: [facility] Address: [address] [place] [address] Performed By: #### 2 4344-4 ####[facility] LABIA [id number] [address] [place] Calcium.ionized (Bld) [Mass/Vol] 1.07 mmol/L Low 1.08-1.30 [facility] Comment on above: Order Comment: Speci men Type: VENOUS BLOOD SPECIMENOrdering Facility: [facility] Address: [address] [place] [address] Performed By: #### 2 4344-4 ####[facility] [id number] [address] [place] Calcium.ionized adjusted to pH 7.4 (BldA) [Moles/Vol] 1.08 mmol/L Normal 1.08-1.30 [facility] Comment on above: Order Comment: Speci men Type: VENOUS BLOOD SPECIMENOrdering Facility: [facility] Address: [address] [place] [address] Performed By: #### 2 4344-4 ####[facility] LABIA [id number] [address] [place] Carboxyhemoglobin (BldV) [Mass fraction] 1.0 % Normal 0.0-2.0 [facility] Comment on above: Order Comment: Speci men Type: VENOUS BLOOD SPECIMENOrdering Facility: [facility] Address: [address] [place] [address] Result Comment: Carb oxyhemoglobin Reference Range for Smokers: 2.0-8.0% Performed By: #### 2 4344-4 ####[facility] LABCLIA [id number] [place] [address] [place] CO2 (BldV) [Partial pressure] 48 mm[Hg] Normal 42-55 [facility] Comment on above: Order Comment: Speci men Type: VENOUS BLOOD SPECIMENOrdering Facility: [facility] Address: [address] [place] [address] Performed By: #### 2 4344-4 ####[facility] LABCLIA [id number] [place] [address] [place] Glucose [Mass/Vol] 152 mg/dL High 60-105 [facility] Comment on above: Order Comment: Speci men Type: VENOUS BLOOD SPECIMENOrdering Facility: [facility] Address: [address] [place] [address] Performed By: #### 2 4344-4 ####[facility] LABCLIA [id number] [place] [address] [place] HCO3 (Bld) [Moles/Vol] 29 mmol/L High 24-[address] [facility] Comment on above: Order Comment: Speci men Type: VENOUS BLOOD SPECIMENOrdering Facility: [facility] Address: [address] [place] [address] Performed By: #### 2 4344-4 ####[facility] LABCLIA [id number] [place] [address] [place] Hematocrit (Bld) [Volume fraction] 25.7 % Low 39.0-51.0 [facility] Comment on above: Order Comment: Speci men Type: VENOUS BLOOD SPECIMENOrdering Facility: [facility] Address: [address] [place] [address] Performed By: #### 2 4344-4 ####[facility] LABCLIA [id number] [place] [address] [place] Hemoglobin (Bld) [Mass/Vol] 8.2 g/dL Low 13.0-17.0 [facility] Comment on above: Order Comment: Speci men Type: VENOUS BLOOD SPECIMENOrdering Facility: [facility] Address: [address] [place] [address] Performed By: #### 2 4344-4 ####[facility] LABIA [id number] [place] [address] [place] Lactate [Moles/Vol] 0.9 mmol/L Normal 0.5-2.2 [facility] Comment on above: Order Comment: Speci men Type: VENOUS BLOOD SPECIMENOrdering Facility: [facility] Address: [address] [place] [address] Performed By: #### 2 4344-4 ####[facility] LABIA [id number] [place] [address] [place] Methemoglobin (Bld) [Mass fraction] 1.0 % Normal 0.0-1.5 [facility] Comment on above: Order Comment: Speci men Type: VENOUS BLOOD SPECIMENOrdering Facility: [facility] Address: [address] [place], [place] [address] Performed By: #### 2 4344-4 ####[facility] LABIA [id number] [place] [id number] [place] O2 THERAPY NC = Nasal Cannula Normal [facility] Comment on above: Order Comment: Speci men Type: VENOUS BLOOD SPECIMENOrdering Facility: [facility] Address: [address] [place], [place] [address] Performed By: #### 2 4344-4 ####[facility] LABCLIA [id number] [address] [address] [place] Oxygen (BldV) [Partial pressure] 40 mm[Hg] Normal 35-45 [facility] Comment on above: Order Comment: Speci men Type: VENOUS BLOOD SPECIMENOrdering Facility: [facility] Address: [address] [place], [place] [address] Performed By: #### 2 4344-4 ####[facility] LABCLIA [id number] [address] [address] [place] Oxygen saturation in Venous blood 68 % Normal 60-85 [facility] Comment on above: Order Comment: Speci men Type: VENOUS BLOOD SPECIMENOrdering Facility: [facility] Address: [address] [place], [place] [address] Performed By: #### 2 4344-4 ####[facility] LABCLIA [id number] [place] [id number] [place] Oxyhemoglobin (BldV) [Mass fraction] 66 % Normal 60-85 [facility] Comment on above: Order Comment: Speci men Type: VENOUS BLOOD SPECIMENOrdering Facility: [facility] Address: [address] [place], [place] [address] Performed By: #### 2 4344-4 ####[facility] LABCLIA [id number] [address] [address] [place] pH (BldV) 7.41 [pH] Normal 7.32-7.42 [facility] Comment on above: Order Comment: Speci men Type: VENOUS BLOOD SPECIMENOrdering Facility: [facility] Address: [address] [place] [address] Performed By: #### 2 4344-4 ####[facility] LABCLIA [id number] [address] [address] [place] Potassium [Moles/Vol] 3.9 mmol/L Normal 3.5-5.0 [facility] Comment on above: Order Comment: Speci men Type: VENOUS BLOOD SPECIMENOrdering Facility: [facility] Address: [address] [place] [address] Performed By: #### 2 4344-4 ####[facility] LABCLIA [id number] [place] [address] [place] Sodium [Moles/Vol] 133 mmol/L Low 136-144 [facility] Comment on above: Order Comment: Speci men Type: VENOUS BLOOD SPECIMENOrdering Facility: [facility] Address: [address] [place] [address] Performed By: #### 2 4344-4 ####[facility] LABCLIA [id number] [place] [address] [place] Base excess Calc (BldV) [Moles/Vol] 7 mmol/L High 0-2 [facility] Comment on above: Order Comment: Speci men Type: VENOUS BLOOD SPECIMENOrdering Facility: [facility] Address: [address] [place] [address] Performed By: #### 2 4344-4 ####[facility] LABIA [id number] [place] [address] [place] Body temperature 98.24 [degF] Normal [facility] Comment on above: Order Comment: Speci men Type: VENOUS BLOOD SPECIMENOrdering Facility: [facility] Address: [address] [place] [address] Performed By: #### 2 4344-4 ####[facility] LABCLIA [id number] [place] [address] [place] Calcium.ionized (Bld) [Mass/Vol] 1.12 mmol/L Normal 1.08-1.30 [facility] Comment on above: Order Comment: Speci men Type: VENOUS BLOOD SPECIMENOrdering Facility: [facility] Address: [address] [place] [address] Performed By: #### 2 4344-4 ####[facility] LABCLIA [id number] [place] [address] [place] Calcium.ionized adjusted to pH 7.4 (BldA) [Moles/Vol] 1.12 mmol/L Normal 1.08-1.30 [facility] Comment on above: Order Comment: Speci men Type: VENOUS BLOOD SPECIMENOrdering Facility: [facility] Address: [address] [place] [address] Performed By: #### 2 4344-4 ####[facility] LABIA [id number] [place] [address] [place] Carboxyhemoglobin (BldV) [Mass fraction] 1.1 % Normal 0.0-2.0 [facility] Comment on above: Order Comment: Speci men Type: VENOUS BLOOD SPECIMENOrdering Facility: [facility] Address: [address] [place] [address] Result Comment: Carb oxyhemoglobin Reference Range for Smokers: 2.0-8.0% Performed By: #### 2 4344-4 ####[facility] LABCLIA [id number] [place] [address] [place] CO2 (BldV) [Partial pressure] 51 mm[Hg] Normal 42-55 [facility] Comment on above: Order Comment: Speci men Type: VENOUS BLOOD SPECIMENOrdering Facility: [facility] Address: [address] [place] [address] Performed By: #### 2 4344-4 ####[facility] LABCLIA [id number] [place] [address] [place] CO2 adjusted to patient's actual temperature (BldV) [Partial pressure] 51 mmHg Normal 42-55 [facility] Comment on above: Order Comment: Speci men Type: VENOUS BLOOD SPECIMENOrdering Facility: [facility] Address: [address] [place] [address] Performed By: #### 2 4344-4 ####[facility] LABIA [id number] [place] [id number] [place] Glucose [Mass/Vol] 177 mg/dL High 60-105 [facility] Comment on above: Order Comment: Speci men Type: VENOUS BLOOD SPECIMENOrdering Facility: [facility] Address: [address] [place] [address] Performed By: #### 2 4344-4 ####[facility] LABCLIA [id number] [place] [address] [place] HCO3 (Bld) [Moles/Vol] 32 mmol/L High 24-[address] [facility] Comment on above: Order Comment: Speci men Type: VENOUS BLOOD SPECIMENOrdering Facility: [facility] Address: [address] [place] [address] Performed By: #### 2 4344-4 ####[facility] LABIA [id number] [place] [address] [place] Hematocrit (Bld) [Volume fraction] 26.3 % Low 39.0-51.0 [facility] Comment on above: Order Comment: Speci men Type: VENOUS BLOOD SPECIMENOrdering Facility: [facility] Address: [address] [place] [address] Performed By: #### 2 4344-4 ####[facility] LABIA [id number] [place] [address] [place] Hemoglobin (Bld) [Mass/Vol] 8.5 g/dL Low 13.0-17.0 [facility] Comment on above: Order Comment: Speci men Type: VENOUS BLOOD SPECIMENOrdering Facility: [facility] Address: [address] [place] [address] Performed By: #### 2 4344-4 ####[facility] LABIA [id number] [place] [id number] [place] Lactate [Moles/Vol] 0.6 mmol/L Normal 0.5-2.2 [facility] Comment on above: Order Comment: Speci men Type: VENOUS BLOOD SPECIMENOrdering Facility: [facility] Address: [address] [place] [place] [id number] Performed By: #### 2 4344-4 ####[facility] LABCLIA [id number] [place] [id number] [place] LITERS 3 Liters/min Normal [facility] Comment on above: Order Comment: Speci men Type: VENOUS BLOOD SPECIMENOrdering Facility: [facility] Address: [address] [place], [place] [address] Performed By: #### 2 4344-4 ####[facility] LABCLIA [id number] [place] [id number] [place] Methemoglobin (Bld) [Mass fraction] 1.3 % Normal 0.0-1.5 [facility] Comment on above: Order Comment: Speci men Type: VENOUS BLOOD SPECIMENOrdering Facility: [facility] Address: [address] [place] [address] Performed By: #### 2 4344-4 ####[facility] LABIA [id number] [place] [id number] [place] O2 THERAPY NC = Nasal Cannula Normal [facility] Comment on above: Order Comment: Speci men Type: VENOUS BLOOD SPECIMENOrdering Facility: [facility] Address: [address] [place], [place] [address] Performed By: #### 2 4344-4 ####[facility] LABCLIA [id number] [address] [address] [place] Oxygen (BldV) [Partial pressure] 36 mm[Hg] Normal 35-45 [facility] Comment on above: Order Comment: Speci men Type: VENOUS BLOOD SPECIMENOrdering Facility: [facility] Address: [address] [place], [place] [address] Performed By: #### 2 4344-4 ####[facility] LABCLIA [id number] [address] [address] [place] Oxygen adjusted to patient's actual temperature (BldV) [Partial pressure] 36 mmHg Normal 35-45 [facility] Comment on above: Order Comment: Speci men Type: VENOUS BLOOD SPECIMENOrdering Facility: [facility] Address: [address] [place], [place] [address] Performed By: #### 2 4344-4 ####[facility] LABCLIA [id number] [address] [address] [place] Oxygen saturation in Venous blood 63 % Normal 60-85 [facility] Comment on above: Order Comment: Speci men Type: VENOUS BLOOD SPECIMENOrdering Facility: [facility] Address: [address] [place] [address] Performed By: #### 2 4344-4 ####[facility] LABCLIA [id number] [address] [address] [place] Oxyhemoglobin (BldV) [Mass fraction] 61 % Normal 60-85 [facility] Comment on above: Order Comment: Speci men Type: VENOUS BLOOD SPECIMENOrdering Facility: [facility] Address: [address] [place] [address] Performed By: #### 2 4344-4 ####[facility] LABCLIA [id number] [address] [address] [place] pH (BldV) 7.41 [pH] Normal 7.32-7.42 [facility] Comment on above: Order Comment: Speci men Type: VENOUS BLOOD SPECIMENOrdering Facility: [facility] Address: [address] [place], [place] [address] Performed By: #### 2 4344-4 ####[facility] LABCLIA [id number] [address] [address] [place] pH adjusted to patient's actual temperature (BldV) 7.41 Normal 7.32-7.42 [facility] Comment on above: Order Comment: Speci men Type: VENOUS BLOOD SPECIMENOrdering Facility: [facility] Address: [address] [place] [address] [place] [address] Performed By: #### 2 4344-4 ####[facility] LABCLIA [id number] [address] [address] [place] Potassium [Moles/Vol] 4.4 mmol/L Normal 3.5-5.0 [facility] Comment on above: Order Comment: Speci men Type: VENOUS BLOOD SPECIMENOrdering Facility: [facility] Address: [address] [place] [address] Performed By: #### 2 4344-4 ####[facility] LABCLIA [id number] [place] [id number] [place] Sodium [Moles/Vol] 132 mmol/L Low 136-144 [facility] Comment on above: Order Comment: Speci men Type: VENOUS BLOOD SPECIMENOrdering Facility: [facility] Address: [address] [place] [address] Performed By: #### 2 4344-4 ####[facility] LABCLIA [id number] [address] [address] [place] Base excess Calc (BldV) [Moles/Vol] 7 mmol/L High 0-2 [facility] Comment on above: Order Comment: Speci men Type: VENOUS BLOOD SPECIMENOrdering Facility: [facility] Address: [address] [place], [place] [address] Performed By: #### 2 4344-4 ####[facility] LABCLIA [id number] [address] [address] [place] Body temperature 97.34 [degF] Normal [facility] Comment on above: Order Comment: Speci men Type: VENOUS BLOOD SPECIMENOrdering Facility: [facility] Address: [address] [place], [place] [address] Performed By: #### 2 4344-4 ####[facility] LABCLIA [id number] [address] [address] [place] Calcium.ionized (Bld) [Mass/Vol] 1.14 mmol/L Normal 1.08-1.30 [facility] Comment on above: Order Comment: Speci men Type: VENOUS BLOOD SPECIMENOrdering Facility: [facility] Address: [address] [place] [address] Performed By: #### 2 4344-4 ####[facility] LABIA [id number] [place] [address] [place] Calcium.ionized adjusted to pH 7.4 (BldA) [Moles/Vol] 1.14 mmol/L Normal 1.08-1.30 [facility] Comment on above: Order Comment: Speci men Type: VENOUS BLOOD SPECIMENOrdering Facility: [facility] Address: [address] [place] [address] Performed By: #### 2 4344-4 ####[facility] LABIA [id number] [address] [place] Carboxyhemoglobin (BldV) [Mass fraction] 1.4 % Normal 0.0-2.0 [facility] Comment on above: Order Comment: Speci men Type: VENOUS BLOOD SPECIMENOrdering Facility: [facility] Address: [address] [place] [address] Result Comment: Carb oxyhemoglobin Reference Range for Smokers: 2.0-8.0% Performed By: #### 2 4344-4 ####[facility] LABIA [id number] [place] [address] [place] CO2 (BldV) [Partial pressure] 50 mm[Hg] Normal 42-55 [facility] Comment on above: Order Comment: Speci men Type: VENOUS BLOOD SPECIMENOrdering Facility: [facility] Address: [address] [place] [address] Performed By: #### 2 4344-4 ####[facility] LABCLIA [id number] [place] [address] [place] CO2 adjusted to patient's actual temperature (BldV) [Partial pressure] 49 mmHg Normal 42-55 [facility] Comment on above: Order Comment: Speci men Type: VENOUS BLOOD SPECIMENOrdering Facility: [facility] Address: [address] [place] [id number] Performed By: #### 2 4344-4 ####[facility] LABCLIA [id number] [place] [id number] [place] Glucose [Mass/Vol] 144 mg/dL High 60-105 [facility] Comment on above: Order Comment: Speci men Type: VENOUS BLOOD SPECIMENOrdering Facility: [facility] Address: [address] [place] [address] Performed By: #### 2 4344-4 ####[facility] LABIA [id number] [address] [place] [address] [place] HCO3 (Bld) [Moles/Vol] 32 mmol/L High 24-[address] [facility] Comment on above: Order Comment: Speci men Type: VENOUS BLOOD SPECIMENOrdering Facility: [facility] Address: [address] [place], [place] [address] Performed By: #### 2 4344-4 ####[facility] LABIA [id number] [address] [address] [place] Hematocrit (Bld) [Volume fraction] 27.0 % Low 39.0-51.0 [facility] Comment on above: Order Comment: Speci men Type: VENOUS BLOOD SPECIMENOrdering Facility: [facility] Address: [address] [place], [place] [address] Performed By: #### 2 4344-4 ####[facility] LABIA [id number] [place] [id number] [place] Hemoglobin (Bld) [Mass/Vol] 8.7 g/dL Low 13.0-17.0 [facility] Comment on above: Order Comment: Speci men Type: VENOUS BLOOD SPECIMENOrdering Facility: [facility] Address: [address] [place] [address] Performed By: #### 2 4344-4 ####[facility] LABCLIA [id number] [place] [address] [place] Lactate [Moles/Vol] 0.8 mmol/L Normal 0.5-2.2 [facility] Comment on above: Order Comment: Speci men Type: VENOUS BLOOD SPECIMENOrdering Facility: [facility] Address: [address] [place] [address] Performed By: #### 2 4344-4 ####[facility] LABCLIA [id number] [place] [address] [place] LITERS 3 Liters/min Normal [facility] Comment on above: Order Comment: Speci men Type: VENOUS BLOOD SPECIMENOrdering Facility: [facility] Address: [address] [place] [address] Performed By: #### 2 4344-4 ####[facility] LABIA [id number] [place] [address] [place] Methemoglobin (Bld) [Mass fraction] 1.3 % Normal 0.0-1.5 [facility] Comment on above: Order Comment: Speci men Type: VENOUS BLOOD SPECIMENOrdering Facility: [facility] Address: [address] [place] [address] Performed By: #### 2 4344-4 ####[facility] LABCLIA [id number] [place] [address] [place] O2 THERAPY NC = Nasal Cannula Normal [facility] Comment on above: Order Comment: Speci men Type: VENOUS BLOOD SPECIMENOrdering Facility: [facility] Address: [address] [place], [place] [address] Performed By: #### 2 4344-4 ####[facility] LABCLIA [id number] [place] [id number] [place] Oxygen (BldV) [Partial pressure] 36 mm[Hg] Normal 35-45 [facility] Comment on above: Order Comment: Speci men Type: VENOUS BLOOD SPECIMENOrdering Facility: [facility] Address: [address] [place] [address] Performed By: #### 2 4344-4 ####[facility] LABCLIA [id number] [address] [address] [place] Oxygen adjusted to patient's actual temperature (BldV) [Partial pressure] 34 mmHg Low 35-45 [facility] Comment on above: Order Comment: Speci men Type: VENOUS BLOOD SPECIMENOrdering Facility: [facility] Address: [address] [place] [address] Performed By: #### 2 4344-4 ####[facility] LABCLIA [id number] [address] [address] [place] Oxygen saturation in Venous blood 59 % Low 60-85 [facility] Comment on above: Order Comment: Speci men Type: VENOUS BLOOD SPECIMENOrdering Facility: [facility] Address: [address] [place] [address] Performed By: #### 2 4344-4 ####[facility] LABCLIA [id number] [address] [address] [place] Oxyhemoglobin (BldV) [Mass fraction] 58 % Low 60-85 [facility] Comment on above: Order Comment: Speci men Type: VENOUS BLOOD SPECIMENOrdering Facility: [facility] Address: [address] [place], [place] [address] Performed By: #### 2 4344-4 ####[facility] LABCLIA [id number] [address] [address] [place] pH (BldV) 7.41 [pH] Normal 7.32-7.42 [facility] Comment on above: Order Comment: Speci men Type: VENOUS BLOOD SPECIMENOrdering Facility: [facility] Address: [address] [place], [place] [address] Performed By: #### 2 4344-4 ####[facility] LABCLIA [id number] [place] [address] [place] pH adjusted to patient's actual temperature (BldV) 7.42 Normal 7.32-7.42 [facility] Comment on above: Order Comment: Speci men Type: VENOUS BLOOD SPECIMENOrdering Facility: [facility] Address: [address] [place] [address] Performed By: #### 2 4344-4 ####[facility] LABIA [id number] [place] [address] [place] Potassium [Moles/Vol] 4.4 mmol/L Normal 3.5-5.0 [facility] Comment on above: Order Comment: Speci men Type: VENOUS BLOOD SPECIMENOrdering Facility: [facility] Address: [address] [place] [address] Performed By: #### 2 4344-4 ####[facility] LABIA [id number] [place] [address] [place] Sodium [Moles/Vol] 133 mmol/L Low 136-144 [facility] Comment on above: Order Comment: Speci men Type: VENOUS BLOOD SPECIMENOrdering Facility: [facility] Address: [address] [place] [address] Performed By: #### 2 4344-4 ####[facility] LABIA [id number] [place] [address] [place] Base excess Calc (BldV) [Moles/Vol] 6 mmol/L High 0-2 [facility] Comment on above: Order Comment: Speci men Type: VENOUS BLOOD SPECIMENOrdering Facility: [facility] Address: [address] [place] [address] Performed By: #### 2 4344-4 ####[facility] LABIA [id number] [place] [address] [place] Calcium.ionized (Bld) [Mass/Vol] 1.11 mmol/L Normal 1.08-1.30 [facility] Comment on above: Order Comment: Speci men Type: VENOUS BLOOD SPECIMENOrdering Facility: [facility] Address: [address] [place] [address] Performed By: #### 2 4344-4 ####[facility] LABCLIA [id number] [place] [address] [place] Calcium.ionized adjusted to pH 7.4 (BldA) [Moles/Vol] 1.13 mmol/L Normal 1.08-1.30 [facility] Comment on above: Order Comment: Speci men Type: VENOUS BLOOD SPECIMENOrdering Facility: [facility] Address: [address] [place] [address] Performed By: #### 2 4344-4 ####[facility] LABIA [id number] [address] [place] Carboxyhemoglobin (BldV) [Mass fraction] 1.1 % Normal 0.0-2.0 [facility] Comment on above: Order Comment: Speci men Type: VENOUS BLOOD SPECIMENOrdering Facility: [facility] Address: [address] [place] [address] Result Comment: Carb oxyhemoglobin Reference Range for Smokers: 2.0-8.0% Performed By: #### 2 4344-4 ####[facility] LABIA [id number] [place] [address] [place] CO2 (BldV) [Partial pressure] 49 mm[Hg] Normal 42-55 [facility] Comment on above: Order Comment: Speci men Type: VENOUS BLOOD SPECIMENOrdering Facility: [facility] Address: [address] [place] [address] Performed By: #### 2 4344-4 ####[facility] LABCLIA [id number] [place] [address] [place] CO2 adjusted to patient's actual temperature (BldV) [Partial pressure] 47 mmHg Normal 42-55 [facility] Comment on above: Order Comment: Speci men Type: VENOUS BLOOD SPECIMENOrdering Facility: [facility] Address: [address] [place], [place] [address] Performed By: #### 2 4344-4 ####[facility] LABCLIA [id number] [facility] [address] [address] [place] Glucose [Mass/Vol] 99 mg/dL Normal 60-105 [facility] Comment on above: Order Comment: Speci men Type: VENOUS BLOOD SPECIMENOrdering Facility: [facility] Address: [address] [place] [address] Performed By: #### 2 4344-4 ####[facility] LABCLIA [id number] [address] [place] [address] [place] Hematocrit (Bld) [Volume fraction] 26.5 % Low 39.0-51.0 [facility] Comment on above: Order Comment: Speci men Type: VENOUS BLOOD SPECIMENOrdering Facility: [facility] Address: [address] [place], [place] [address] Performed By: #### 2 4344-4 ####[facility] LABCLIA [id number] [address] [address] [place] Hemoglobin (Bld) [Mass/Vol] 8.5 g/dL Low 13.0-17.0 [facility] Comment on above: Order Comment: Speci men Type: VENOUS BLOOD SPECIMENOrdering Facility: [facility] Address: [address] [place], [place] [address] Performed By: #### 2 4344-4 ####[facility] LABCLIA [id number] [place] [id number] [place] Lactate [Moles/Vol] 1.1 mmol/L Normal 0.5-2.2 [facility] Comment on above: Order Comment: Speci men Type: VENOUS BLOOD SPECIMENOrdering Facility: [facility] Address: [address] [place] [id number] Performed By: #### 2 4344-4 ####[facility] LABCLIA [id number] [address] [place] [address] [place] Methemoglobin (Bld) [Mass fraction] 0.9 % Normal 0.0-1.5 [facility] Comment on above: Order Comment: Speci men Type: VENOUS BLOOD SPECIMENOrdering Facility: [facility] Address: [address] [place] [address] Performed By: #### 2 4344-4 ####[facility] LABCLIA [id number] [address] [place] [address] [place] Oxygen (BldV) [Partial pressure] 37 mm[Hg] Normal 35-45 [facility] Comment on above: Order Comment: Speci men Type: VENOUS BLOOD SPECIMENOrdering Facility: [facility] Address: [address] [place] [address] Performed By: #### 2 4344-4 ####[facility] LABCLIA [id number] [address] [place] [address] [place] Oxygen adjusted to patient's actual temperature (BldV) [Partial pressure] 36 mmHg Normal 35-45 [facility] Comment on above: Order Comment: Speci men Type: VENOUS BLOOD SPECIMENOrdering Facility: [facility] Address: [address] [place], [place] [address] Performed By: #### 2 4344-4 ####[facility] LABCLIA [id number] [address] [place] [address] [place] Oxygen saturation in Venous blood 63 % Normal 60-85 [facility] Comment on above: Order Comment: Speci men Type: VENOUS BLOOD SPECIMENOrdering Facility: [facility] Address: [address] [place], [place] [address] Performed By: #### 2 4344-4 ####[facility] LABCLIA [id number] [address] [place] [address] [place] Oxyhemoglobin (BldV) [Mass fraction] 62 % Normal 60-85 [facility] Comment on above: Order Comment: Speci men Type: VENOUS BLOOD SPECIMENOrdering Facility: [facility] Address: [address] [place] [address] Performed By: #### 2 4344-4 ####[facility] LABCLIA [id number] [place] [address] [place] pH (BldV) 7.42 [pH] Normal 7.32-7.42 [facility] Comment on above: Order Comment: Speci men Type: VENOUS BLOOD SPECIMENOrdering Facility: [facility] Address: [address] [place] [address] Performed By: #### 2 4344-4 ####[facility] LABIA [id number] [place] [address] [place] pH adjusted to patient's actual temperature (BldV) 7.43 High 7.32-7.42 [facility] Comment on above: Order Comment: Speci men Type: VENOUS BLOOD SPECIMENOrdering Facility: [facility] Address: [address] [place] [address] Performed By: #### 2 4344-4 ####[facility] LABIA [id number] [place] [id number] [place] Potassium [Moles/Vol] 4.2 mmol/L Normal 3.5-5.0 [facility] Comment on above: Order Comment: Speci men Type: VENOUS BLOOD SPECIMENOrdering Facility: [facility] Address: [address] [place] [address] Performed By: #### 2 4344-4 ####[facility] LABIA [id number] [place] [id number] [place] Sodium [Moles/Vol] 133 mmol/L Low 136-144 [facility] Comment on above: Order Comment: Speci men Type: VENOUS BLOOD SPECIMENOrdering Facility: [facility] Address: [address] [place] [address] Performed By: #### 2 4344-4 ####[facility] [id number] [place] [address] [place] Base excess Calc (BldV) [Moles/Vol] 6 mmol/L High 0-2 [facility] Comment on above: Order Comment: Speci men Type: VENOUS BLOOD SPECIMENOrdering Facility: [facility] Address: [address] [place] [address] Performed By: #### 2 4344-4 ####[facility] [id number] [place] [address] [place] Calcium.ionized (Bld) [Mass/Vol] 1.12 mmol/L Normal 1.08-1.30 [facility] Comment on above: Order Comment: Speci men Type: VENOUS BLOOD SPECIMENOrdering Facility: [facility] Address: [address] [place] [address] Performed By: #### 2 4344-4 ####[facility] [id number] [place] [address] [place] Calcium.ionized adjusted to pH 7.4 (BldA) [Moles/Vol] 1.12 mmol/L Normal 1.08-1.30 [facility] Comment on above: Order Comment: Speci men Type: VENOUS BLOOD SPECIMENOrdering Facility: [facility] Address: [address] [place] [address] Performed By: #### 2 4344-4 ####[facility] [id number] [place] [address] [place] Carboxyhemoglobin (BldV) [Mass fraction] 1.2 % Normal 0.0-2.0 [facility] Comment on above: Order Comment: Speci men Type: VENOUS BLOOD SPECIMENOrdering Facility: [facility] Address: [address] [place] [address] Result Comment: Carb oxyhemoglobin Reference Range for Smokers: 2.0-8.0% Performed By: #### 2 4344-4 ####[facility] LABCLIA [id number] [address] [address] [place] CO2 (BldV) [Partial pressure] 51 mm[Hg] Normal 42-55 [facility] Comment on above: Order Comment: Speci men Type: VENOUS BLOOD SPECIMENOrdering Facility: [facility] Address: [address] [place] [address] Performed By: #### 2 4344-4 ####[facility] LABCLIA [id number] [place] [address] [place] CO2 adjusted to patient's actual temperature (BldV) [Partial pressure] 49 mmHg Normal 42-55 [facility] Comment on above: Order Comment: Speci men Type: VENOUS BLOOD SPECIMENOrdering Facility: [facility] Address: [address] [place] [address] Performed By: #### 2 4344-4 ####[facility] LABCLIA [id number] [place] [id number] [place] Glucose [Mass/Vol] 152 mg/dL High 60-105 [facility] Comment on above: Order Comment: Speci men Type: VENOUS BLOOD SPECIMENOrdering Facility: [facility] Address: [address] [place], [place] [address] Performed By: #### 2 4344-4 ####[facility] LABCLIA [id number] [address] [address] [place] HCO3 (Bld) [Moles/Vol] 31 mmol/L High 24-[address] [facility] Comment on above: Order Comment: Speci men Type: VENOUS BLOOD SPECIMENOrdering Facility: [facility] Address: [address] [place], [place] [address] Performed By: #### 2 4344-4 ####[facility] LABCLIA [id number] [address] [address] [place] Hematocrit (Bld) [Volume fraction] 28.9 % Low 39.0-51.0 [facility] Comment on above: Order Comment: Speci men Type: VENOUS BLOOD SPECIMENOrdering Facility: [facility] Address: [address] [place] [address] Performed By: #### 2 4344-4 ####[facility] LABCLIA [id number] [place] [address] [place] Hemoglobin (Bld) [Mass/Vol] 9.3 g/dL Low 13.0-17.0 [facility] Comment on above: Order Comment: Speci men Type: VENOUS BLOOD SPECIMENOrdering Facility: [facility] Address: [address] [place] [address] Performed By: #### 2 4344-4 ####[facility] LABCLIA [id number] [place] [address] [place] Lactate [Moles/Vol] 0.7 mmol/L Normal 0.5-2.2 [facility] Comment on above: Order Comment: Speci men Type: VENOUS BLOOD SPECIMENOrdering Facility: [facility] Address: [address] [place] [address] Performed By: #### 2 4344-4 ####[facility] LABIA [id number] [place] [address] [place] Methemoglobin (Bld) [Mass fraction] 1.3 % Normal 0.0-1.5 [facility] Comment on above: Order Comment: Speci men Type: VENOUS BLOOD SPECIMENOrdering Facility: [facility] Address: [address] [place] [address] Performed By: #### 2 4344-4 ####[facility] LABCLIA [id number] [place] [id number] [place] Oxygen (BldV) [Partial pressure] 38 mm[Hg] Normal 35-45 [facility] Comment on above: Order Comment: Speci men Type: VENOUS BLOOD SPECIMENOrdering Facility: [facility] Address: [address] [place] [address] Performed By: #### 2 4344-4 ####[facility] LABCLIA [id number] [address] [address] [place] Oxygen adjusted to patient's actual temperature (BldV) [Partial pressure] 36 mmHg Normal 35-45 [facility] Comment on above: Order Comment: Speci men Type: VENOUS BLOOD SPECIMENOrdering Facility: [facility] Address: [address] [place], [place] [address] Performed By: #### 2 4344-4 ####[facility] LABCLIA [id number] [address] [address] [place] Oxygen saturation in Venous blood 66 % Normal 60-85 [facility] Comment on above: Order Comment: Speci men Type: VENOUS BLOOD SPECIMENOrdering Facility: [facility] Address: [address] [place], [place] [address] Performed By: #### 2 4344-4 ####[facility] LABCLIA [id number] [address] [address] [place] Oxyhemoglobin (BldV) [Mass fraction] 64 % Normal 60-85 [facility] Comment on above: Order Comment: Speci men Type: VENOUS BLOOD SPECIMENOrdering Facility: [facility] Address: [address] [place], [place] [address] Performed By: #### 2 4344-4 ####[facility] LABCLIA [id number] [address] [address] [place] pH (BldV) 7.40 [pH] Normal 7.32-7.42 [facility] Comment on above: Order Comment: Speci men Type: VENOUS BLOOD SPECIMENOrdering Facility: [facility] Address: [address] [place], [place] [address] Performed By: #### 2 4344-4 ####[facility] LABCLIA [id number] [place] [address] [place] pH adjusted to patient's actual temperature (BldV) 7.41 Normal 7.32-7.42 [facility] Comment on above: Order Comment: Speci men Type: VENOUS BLOOD SPECIMENOrdering Facility: [facility] Address: [address] [place] [address] Performed By: #### 2 4344-4 ####[facility] LABCLIA [id number] [place] [address] [place] Potassium [Moles/Vol] 4.4 mmol/L Normal 3.5-5.0 [facility] Comment on above: Order Comment: Speci men Type: VENOUS BLOOD SPECIMENOrdering Facility: [facility] Address: [address] [place] [address] Performed By: #### 2 4344-4 ####[facility] LABIA [id number] [place] [address] [place] Sodium [Moles/Vol] 132 mmol/L Low 136-144 [facility] Comment on above: Order Comment: Speci men Type: VENOUS BLOOD SPECIMENOrdering Facility: [facility] Address: [address] [place] [address] Performed By: #### 2 4344-4 ####[facility] LABIA [id number] [place] [address] [place] Base excess Calc (BldV) [Moles/Vol] 6 mmol/L High 0-2 [facility] Comment on above: Order Comment: Speci men Type: VENOUS BLOOD SPECIMENOrdering Facility: [facility] Address: [address] [place] [address] Performed By: #### 2 4344-4 ####[facility] LABCLIA [id number] [place] [address] [place] Calcium.ionized (Bld) [Mass/Vol] 1.17 mmol/L Normal 1.08-1.30 [facility] Comment on above: Order Comment: Speci men Type: VENOUS BLOOD SPECIMENOrdering Facility: [facility] Address: [address] [place] [address] Performed By: #### 2 4344-4 ####[facility] LABIA [id number] [place] [address] [place] Calcium.ionized adjusted to pH 7.4 (BldA) [Moles/Vol] 1.17 mmol/L Normal 1.08-1.30 [facility] Comment on above: Order Comment: Speci men Type: VENOUS BLOOD SPECIMENOrdering Facility: [facility] Address: [address] [place] [address] Performed By: #### 2 4344-4 ####[facility] LABIA [id number] [place] [address] [place] Carboxyhemoglobin (BldV) [Mass fraction] 1.2 % Normal 0.0-2.0 [facility] Comment on above: Order Comment: Speci men Type: VENOUS BLOOD SPECIMENOrdering Facility: [facility] Address: [address] [place] [address] Result Comment: Carb oxyhemoglobin Reference Range for Smokers: 2.0-8.0% Performed By: #### 2 4344-4 ####[facility] LABIA [id number] [place] [address] [place] CO2 (BldV) [Partial pressure] 52 mm[Hg] Normal 42-55 [facility] Comment on above: Order Comment: Speci men Type: VENOUS BLOOD SPECIMENOrdering Facility: [facility] Address: [address] [place] [address] Performed By: #### 2 4344-4 ####[facility] LABCLIA [id number] [place] [id number] [place] Glucose [Mass/Vol] 141 mg/dL High 60-105 [facility] Comment on above: Order Comment: Speci men Type: VENOUS BLOOD SPECIMENOrdering Facility: [facility] Address: [address] [place] [address] Performed By: #### 2 4344-4 ####[facility] LABIA [id number] [place] [address] [place] HCO3 (Bld) [Moles/Vol] 31 mmol/L High 24-28 [facility] Comment on above: Order Comment: Speci men Type: VENOUS BLOOD SPECIMENOrdering Facility: [facility] Address: [address] [place] [address] Performed By: #### 2 4344-4 ####[facility] LABIA [id number] [place] [address] [place] Hematocrit (Bld) [Volume fraction] 29.7 % Low 39.0-51.0 [facility] Comment on above: Order Comment: Speci men Type: VENOUS BLOOD SPECIMENOrdering Facility: [facility] Address: [address] [place] [address] Performed By: #### 2 4344-4 ####[facility] LABIA [id number] [place] [address] [place] Hemoglobin (Bld) [Mass/Vol] 9.6 g/dL Low 13.0-17.0 [facility] Comment on above: Order Comment: Speci men Type: VENOUS BLOOD SPECIMENOrdering Facility: [facility] Address: [address] [place] [address] Performed By: #### 2 4344-4 ####[facility] LABIA [id number] [place] [id number] [place] Methemoglobin (Bld) [Mass fraction] 1.4 % Normal 0.0-1.5 [facility] Comment on above: Order Comment: Speci men Type: VENOUS BLOOD SPECIMENOrdering Facility: [facility] Address: [address] [place], [place] [address] Performed By: #### 2 4344-4 ####[facility] LABCLIA [id number] [address] [address] [place] Oxygen (BldV) [Partial pressure] 33 mm[Hg] Low 35-45 [facility] Comment on above: Order Comment: Speci men Type: VENOUS BLOOD SPECIMENOrdering Facility: [facility] Address: [address] [place], [place] [address] Performed By: #### 2 4344-4 ####[facility] LABCLIA [id number] [address] [address] [place] Oxygen saturation in Venous blood 52 % Low 60-85 [facility] Comment on above: Order Comment: Speci men Type: VENOUS BLOOD SPECIMENOrdering Facility: [facility] Address: [address] [place], [place] [address] Performed By: #### 2 4344-4 ####[facility] LABCLIA [id number] [place] [id number] [place] Oxyhemoglobin (BldV) [Mass fraction] 51 % Low 60-85 [facility] Comment on above: Order Comment: Speci men Type: VENOUS BLOOD SPECIMENOrdering Facility: [facility] Address: [address] [place] [address] Performed By: #### 2 4344-4 ####[facility] LABIA [id number] [address] [address] [place] pH (BldV) 7.40 [pH] Normal 7.32-7.42 [facility] Comment on above: Order Comment: Speci men Type: VENOUS BLOOD SPECIMENOrdering Facility: [facility] Address: [address] [place], [place] [address] Performed By: #### 2 4344-4 ####[facility] LABCLIA [id number] [address] [address] [place] Potassium [Moles/Vol] 4.6 mmol/L Normal 3.5-5.0 [facility] Comment on above: Order Comment: Speci men Type: VENOUS BLOOD SPECIMENOrdering Facility: [facility] Address: [address] [place] [address] Performed By: #### 2 4344-4 ####[facility] LABIA [id number] [place] [address] [place] Sodium [Moles/Vol] 135 mmol/L Low 136-144 [facility] Comment on above: Order Comment: Speci men Type: VENOUS BLOOD SPECIMENOrdering Facility: [facility] Address: [address] [place] [address] Performed By: #### 2 4344-4 ####[facility] LABIA [id number] [place] [address] [place] Base excess Calc (BldV) [Moles/Vol] 4 mmol/L High 0-2 [facility] Comment on above: Order Comment: Speci men Type: VENOUS BLOOD SPECIMENOrdering Facility: [facility] Address: [address] [place] [address] Performed By: #### 2 4344-4 ####[facility] LABIA [id number] [place] [address] [place] Calcium.ionized (Bld) [Mass/Vol] 1.18 mmol/L Normal 1.08-1.30 [facility] Comment on above: Order Comment: Speci men Type: VENOUS BLOOD SPECIMENOrdering Facility: [facility] Address: [address] [place] [address] Performed By: #### 2 4344-4 ####[facility] LABIA [id number] [place] [address] [place] Calcium.ionized adjusted to pH 7.4 (BldA) [Moles/Vol] 1.15 mmol/L Normal 1.08-1.30 [facility] Comment on above: Order Comment: Speci men Type: VENOUS BLOOD SPECIMENOrdering Facility: [facility] Address: [address] [place] [address] Performed By: #### 2 4344-4 ####[facility] LABCLIA [id number] [address] [place] Carboxyhemoglobin (BldV) [Mass fraction] 1.0 % Normal 0.0-2.0 [facility] Comment on above: Order Comment: Speci men Type: VENOUS BLOOD SPECIMENOrdering Facility: [facility] Address: [address] [place] [address] Result Comment: Carb oxyhemoglobin Reference Range for Smokers: 2.0-8.0% Performed By: #### 2 4344-4 ####[facility] LABCLIA [id number] [place] [address] [place] CO2 (BldV) [Partial pressure] 55 mm[Hg] Normal 42-55 [facility] Comment on above: Order Comment: Speci men Type: VENOUS BLOOD SPECIMENOrdering Facility: [facility] Address: [address] [place] [address] Performed By: #### 2 4344-4 ####[facility] LABCLIA [id number] [address] [place] CO2 adjusted to patient's actual temperature (BldV) [Partial pressure] 54 mmHg Normal 42-55 [facility] Comment on above: Order Comment: Speci men Type: VENOUS BLOOD SPECIMENOrdering Facility: [facility] Address: [address] [place] [address] Performed By: #### 2 4344-4 ####[facility] LABCLIA [id number] [place] [id number] [place] Glucose [Mass/Vol] 180 mg/dL High 60-105 [facility] Comment on above: Order Comment: Speci men Type: VENOUS BLOOD SPECIMENOrdering Facility: [facility] Address: [address] [place] [address] Performed By: #### 2 4344-4 ####[facility] LABCLIA [id number] [address] [place] [address] [place] HCO3 (Bld) [Moles/Vol] 30 mmol/L High 24-[address] [facility] Comment on above: Order Comment: Speci men Type: VENOUS BLOOD SPECIMENOrdering Facility: [facility] Address: [address] [place] [address] Performed By: #### 2 4344-4 ####[facility] LABCLIA [id number] [place] [id number] [place] Lactate [Moles/Vol] 1.5 mmol/L Normal 0.5-2.2 [facility] Comment on above: Order Comment: Speci men Type: VENOUS BLOOD SPECIMENOrdering Facility: [facility] Address: [address] [place] [address] Performed By: #### 2 4344-4 ####[facility] LABIA [id number] [place] [address] [place] Methemoglobin (Bld) [Mass fraction] 1.3 % Normal 0.0-1.5 [facility] Comment on above: Order Comment: Speci men Type: VENOUS BLOOD SPECIMENOrdering Facility: [facility] Address: [address] [place] [address] Performed By: #### 2 4344-4 ####[facility] LABIA [id number] [place] [id number] [place] Oxygen (BldV) [Partial pressure] 38 mm[Hg] Normal 35-45 [facility] Comment on above: Order Comment: Speci men Type: VENOUS BLOOD SPECIMENOrdering Facility: [facility] Address: [address] [place] [address] Performed By: #### 2 4344-4 ####[facility] LABCLIA [id number] [place] [id number] [place] Oxygen adjusted to patient's actual temperature (BldV) [Partial pressure] 37 mmHg Normal 35-45 [facility] Comment on above: Order Comment: Speci men Type: VENOUS BLOOD SPECIMENOrdering Facility: [facility] Address: [address] [place], [place] [address] Performed By: #### 2 4344-4 ####[facility] LABCLIA [id number] [address] [place] [address] [place] Oxygen saturation in Venous blood 65 % Normal 60-85 [facility] Comment on above: Order Comment: Speci men Type: VENOUS BLOOD SPECIMENOrdering Facility: [facility] Address: [address] [place] [address] Performed By: #### 2 4344-4 ####[facility] LABCLIA [id number] [address] [address] [place] Oxyhemoglobin (BldV) [Mass fraction] 64 % Normal 60-85 [facility] Comment on above: Order Comment: Speci men Type: VENOUS BLOOD SPECIMENOrdering Facility: [facility] Address: [address] [place] [address] Performed By: #### 2 4344-4 ####[facility] LABCLIA [id number] [address] [address] [place] pH (BldV) 7.35 [pH] Normal 7.32-7.42 [facility] Comment on above: Order Comment: Speci men Type: VENOUS BLOOD SPECIMENOrdering Facility: [facility] Address: [address] [place], [place] [address] Performed By: #### 2 4344-4 ####[facility] LABCLIA [id number] [address] [address] [place] pH adjusted to patient's actual temperature (BldV) 7.36 Normal 7.32-7.42 [facility] Comment on above: Order Comment: Speci men Type: VENOUS BLOOD SPECIMENOrdering Facility: [facility] Address: [address] [place], [place] [address] Performed By: #### 2 4344-4 ####[facility] LABIA [id number] [place] [id number] [place] Potassium [Moles/Vol] 4.5 mmol/L Normal 3.5-5.0 [facility] Comment on above: Order Comment: Speci men Type: VENOUS BLOOD SPECIMENOrdering Facility: [facility] Address: [address] [place] [address] Performed By: #### 2 4344-4 ####[facility] LABIA [id number] [place] [id number] [place] Sodium [Moles/Vol] 135 mmol/L Low 136-144 [facility] Comment on above: Order Comment: Speci men Type: VENOUS BLOOD SPECIMENOrdering Facility: [facility] Address: [address] [place] [address] Performed By: #### 2 4344-4 ####[facility] [id number] [place] [id number] [place] Magnesium SerPl-mCncon 10-21 Magnesium [Mass/Vol] 1.9 mg/dL Normal 1.7-2.3 [facility] Comment on above: Order Comment: Speci men Type: BLOOD SPECIMENOrdering Facility: [facility] Address: [address] [place] [address] Performed By: #### 2 4323-8, 78235-9, 2777-1 ####[facility] [id number] [place] [id number] [place] PT panel Coag (PPP)on 2024 INR Coag (PPP) [Relative time] 1.3 {INR} Normal 0.9-1.3 [facility] Comment on above: Order Comment: Speci men Type: BLOOD SPECIMENOrdering Facility: [facility] Address: [address] [place] [address] Result Comment: Nettie min K Antagonist (VKA) Therapeutic Range: INR 2 to 3 (Target INR of 2.5)Note: For patients treated with VKA drugs, such as warfarin, the [employer] [employer] 2012 Guideline recommends a therapeutic INR range of 2 to 3 (target INR of 2.5). This recommendation includes high-risk patients with antiphospholipid syndrome with previous arterial or venous thromboembolism, current-generation mechanical or bioprosthetic aortic heart valve replacement.Note: Patients with mechanical aortic valve replacement and additional risk factors for thromboembolic events (atrial fibrillation, previous thromboembolism, LV dysfunction, hypercoagulable conditions) or an older generation mechanical AVR (i.e., ball in-Cage) or any mechanical MVR should have a INR therapeutic range of 2.5 to 3.5 (target INR of 3).Cecile GH, et al. Chest 2012, 141:7S-47SNishimsoila RA, et al. [facility] 2017, 70: 252-289 Performed By: #### 3 4528-0 ####[facility] LABIA [id number] [place] [address] [place] PT Coag (PPP) [Time] 13.8 s High 9.7-13.0 [facility] Comment on above: Order Comment: Speci men Type: BLOOD SPECIMENOrdering Facility: [facility] Address: [address] [place] [address] Performed By: #### 3 4528-0 ####[facility] LABIA [id number] [place] [address] [place] Phosphate SerPl-mCncon 10-21 Phosphate [Mass/Vol] 3.4 mg/dL Normal 2.7-4.8 [facility] Comment on above: Order Comment: Speci men Type: BLOOD SPECIMENOrdering Facility: [facility] Address: [address] [place] [address] Performed By: #### 2 4323-8, 80111-5, 2777-1 ####[facility] LABIA [id number] [place] [address] [place] XR CHEST 1V FRONTAL PORTon 0 10-21-2024 XR CHEST 1V FRONTAL PORT Normal [facility] ARTERIAL BLOOD GASESon 10-20 Base excess Calc (Bld) [Moles/Vol] 2 mmol/L Normal 0-2 [facility] Comment on above: Order Comment: Speci men Type: ARTERIAL BLOOD SPECIMENOrdering Facility: [facility] Address: [address] [place] [address] Performed By: #### A LLBG ####[facility] LABCLIA [id number] [place] [address] [place] Calcium.ionized (Bld) [Mass/Vol] 1.17 mmol/L Normal 1.08-1.30 [facility] Comment on above: Order Comment: Speci men Type: ARTERIAL BLOOD SPECIMENOrdering Facility: [facility] Address: [address] [place] [address] Performed By: #### A LLBG ####[facility] LABCLIA [id number] [place] [address] [place] Calcium.ionized adjusted to pH 7.4 (BldA) [Moles/Vol] 1.16 mmol/L Normal 1.08-1.30 [facility] Comment on above: Order Comment: Speci men Type: ARTERIAL BLOOD SPECIMENOrdering Facility: [facility] Address: [address] [place] [address] Performed By: #### A LLBG ####[facility] LABCLIA [id number] [place] [address] [place] Carboxyhemoglobin (BldA) [Mass fraction] 1.0 % Normal 0.0-2.0 [facility] Comment on above: Order Comment: Speci men Type: ARTERIAL BLOOD SPECIMENOrdering Facility: [facility] Address: [address] [place] [address] Result Comment: Carb oxyhemoglobin Reference Range for Smokers: 2.0-8.0% Performed By: #### A LLBG ####[facility] LABCLIA [id number] [address] [place] CO2 (Bld) [Partial pressure] 46 mm Hg Normal 36-46 [facility] Comment on above: Order Comment: Speci men Type: ARTERIAL BLOOD SPECIMENOrdering Facility: [facility] Address: [address] [place] [address] Performed By: #### A LLBG ####[facility] LABCLIA [id number] [place] [address] [place] CO2 adjusted to patient's actual temperature (Bld) [Partial pressure] 46 mmHg Normal 36-46 [facility] Comment on above: Order Comment: Speci men Type: ARTERIAL BLOOD SPECIMENOrdering Facility: [facility] Address: [address] [place] [address] Performed By: #### A LLBG ####[facility] LABCLIA [id number] [place] [address] [place] Glucose [Mass/Vol] 229 mg/dL High 60-105 [facility] Comment on above: Order Comment: Speci men Type: ARTERIAL BLOOD SPECIMENOrdering Facility: [facility] Address: [address] [place] [address] Performed By: #### A LLBG ####[facility] LABCLIA [id number] [place] [address] [place] Hematocrit (Bld) [Volume fraction] 28.3 % Low 39.0-51.0 [facility] Comment on above: Order Comment: Speci men Type: ARTERIAL BLOOD SPECIMENOrdering Facility: [facility] Address: [address] [place] [address] Performed By: #### A LLBG ####[facility] LABCLIA [id number] [place] [address] [place] Hemoglobin (Bld) [Mass/Vol] 9.1 g/dL Low 13.0-17.0 [facility] Comment on above: Order Comment: Speci men Type: ARTERIAL BLOOD SPECIMENOrdering Facility: [facility] Address: [address] [place] [address] Performed By: #### A LLBG ####[facility] LABCLIA [id number] [place] [address] [place] Lactate [Moles/Vol] 2.4 mmol/L High 0.5-2.2 [facility] Comment on above: Order Comment: Speci men Type: ARTERIAL BLOOD SPECIMENOrdering Facility: [facility] Address: [address] [place] [address] Performed By: #### A LLBG ####[facility] LABCLIA [id number] [place] [address] [place] Methemoglobin (Bld) [Mass fraction] 1.1 % Normal 0.0-1.5 [facility] Comment on above: Order Comment: Speci men Type: ARTERIAL BLOOD SPECIMENOrdering Facility: [facility] Address: [address] [place] [address] Performed By: #### A LLBG ####[facility] LABCLIA [id number] [place] [id number] [place] Oxygen (Bld) [Partial pressure] 104 mm Hg High 85-95 [facility] Comment on above: Order Comment: Speci men Type: ARTERIAL BLOOD SPECIMENOrdering Facility: [facility] Address: [address] [place] [address] Performed By: #### A LLBG ####[facility] LABCLIA [id number] [place] [id number] [place] Oxygen adjusted to patient's actual temperature (Bld) [Partial pressure] 103 mmHg High 85-95 [facility] Comment on above: Order Comment: Speci men Type: ARTERIAL BLOOD SPECIMENOrdering Facility: [facility] Address: [address] [place], [place] [address] Performed By: #### A LLBG ####[facility] LABCLIA [id number] [place] [address] [place] Oxyhemoglobin (BldA) [Mass fraction] 96 % Normal 95-98 [facility] Comment on above: Order Comment: Speci men Type: ARTERIAL BLOOD SPECIMENOrdering Facility: [facility] Address: [address] [place] [address] Performed By: #### A LLBG ####[facility] LABCLIA [id number] [place] [address] [place] pH (Bld) 7.38 [pH] Normal 7.35-7.45 [facility] Comment on above: Order Comment: Speci men Type: ARTERIAL BLOOD SPECIMENOrdering Facility: [facility] Address: [address] [place] [address] Performed By: #### A LLBG ####[facility] LABCLIA [id number] [place] [address] [place] pH adjusted to patient's actual temperature (Bld) 7.38 Normal 7.35-7.45 [facility] Comment on above: Order Comment: Speci men Type: ARTERIAL BLOOD SPECIMENOrdering Facility: [facility] Address: [address] [place], [place] [address] Performed By: #### A LLBG ####[facility] LABCLIA [id number] [place] [id number] [place] Potassium [Moles/Vol] 4.4 mmol/L Normal 3.5-5.0 [facility] Comment on above: Order Comment: Speci men Type: ARTERIAL BLOOD SPECIMENOrdering Facility: [facility] Address: [address] [place] [address] Performed By: #### A LLBG ####[facility] LABCLIA [id number] [place] [address] [place] Base excess Calc (Bld) [Moles/Vol] 2 mmol/L Normal 0-2 [facility] Comment on above: Order Comment: Speci men Type: ARTERIAL BLOOD SPECIMENOrdering Facility: [facility] Address: [address] [place] [address] Performed By: #### A LLBG ####[facility] LABCLIA [id number] [place] [address] [place] Body temperature 97.88 [degF] Normal [facility] Comment on above: Order Comment: Speci men Type: ARTERIAL BLOOD SPECIMENOrdering Facility: [facility] Address: [address] [place] [address] Performed By: #### A LLBG ####[facility] LABCLIA [id number] [place] [address] [place] Order Comment: Speci men Type: VENOUS BLOOD SPECIMENOrdering Facility: [facility] Address: [address] [place] [address] Performed By: #### 2 4344-4 ####[facility] LABCLIA [id number] [place] [address] [place] Calcium.ionized (Bld) [Mass/Vol] 1.15 mmol/L Normal 1.08-1.30 [facility] Comment on above: Order Comment: Speci men Type: ARTERIAL BLOOD SPECIMENOrdering Facility: [facility] Address: [address] [place] [address] Performed By: #### A LLBG ####[facility] LABCLIA [id number] [place] [address] [place] Calcium.ionized adjusted to pH 7.4 (BldA) [Moles/Vol] 1.16 mmol/L Normal 1.08-1.30 [facility] Comment on above: Order Comment: Speci men Type: ARTERIAL BLOOD SPECIMENOrdering Facility: [facility] Address: [address] [place] [address] Performed By: #### A LLBG ####[facility] LABCLIA [id number] [place] [address] [place] Carboxyhemoglobin (BldA) [Mass fraction] 1.0 % Normal 0.0-2.0 [facility] Comment on above: Order Comment: Speci men Type: ARTERIAL BLOOD SPECIMENOrdering Facility: [facility] Address: [address] [place] [address] Result Comment: Carb oxyhemoglobin Reference Range for Smokers: 2.0-8.0% Performed By: #### A LLBG ####[facility] LABCLIA [id number] [place] [address] [place] CO2 (Bld) [Partial pressure] 41 mm Hg Normal 36-46 [facility] Comment on above: Order Comment: Speci men Type: ARTERIAL BLOOD SPECIMENOrdering Facility: [facility] Address: [address] [place] [address] Performed By: #### A LLBG ####[facility] LABCLIA [id number] [place] [address] [place] CO2 adjusted to patient's actual temperature (Bld) [Partial pressure] 41 mmHg Normal 36-46 [facility] Comment on above: Order Comment: Speci men Type: ARTERIAL BLOOD SPECIMENOrdering Facility: [facility] Address: [address] [place] [address] Performed By: #### A LLBG ####[facility] LABCLIA [id number] [place] [address] [place] Glucose [Mass/Vol] 271 mg/dL High 60-105 [facility] Comment on above: Order Comment: Speci men Type: ARTERIAL BLOOD SPECIMENOrdering Facility: [facility] Address: [address] [place] [address] Performed By: #### A LLBG ####[facility] LABCLIA [id number] [place] [address] [place] HCO3 (Bld) [Moles/Vol] 26 mmol/L Normal 22-[address] [facility] Comment on above: Order Comment: Speci men Type: ARTERIAL BLOOD SPECIMENOrdering Facility: [facility] Address: [address] [place] [address] Performed By: #### A LLBG ####[facility] LABCLIA [id number] [place] [address] [place] Hematocrit (Bld) [Volume fraction] 29.8 % Low 39.0-51.0 [facility] Comment on above: Order Comment: Speci men Type: ARTERIAL BLOOD SPECIMENOrdering Facility: [facility] Address: [address] [place] [address] Performed By: #### A LLBG ####[facility] LABCLIA [id number] [place] [address] [place] Hemoglobin (Bld) [Mass/Vol] 9.6 g/dL Low 13.0-17.0 [facility] Comment on above: Order Comment: Speci men Type: ARTERIAL BLOOD SPECIMENOrdering Facility: [facility] Address: [address] [place] [address] Performed By: #### A LLBG ####[facility] LABIA [id number] [place] [address] [place] Lactate [Moles/Vol] 1.4 mmol/L Normal 0.5-2.2 [facility] Comment on above: Order Comment: Speci men Type: ARTERIAL BLOOD SPECIMENOrdering Facility: [facility] Address: [address] [place] [address] Performed By: #### A LLBG ####[facility] LABCLIA [id number] [place] [address] [place] Methemoglobin (Bld) [Mass fraction] 1.5 % Normal 0.0-1.5 [facility] Comment on above: Order Comment: Speci men Type: ARTERIAL BLOOD SPECIMENOrdering Facility: [facility] Address: [address] [place] [address] Performed By: #### A LLBG ####[facility] LABCLIA [id number] [address] [place] [address] [place] O2 THERAPY NC = Nasal Cannula Normal [facility] Comment on above: Order Comment: Speci men Type: ARTERIAL BLOOD SPECIMENOrdering Facility: [facility] Address: [address] [place] [id number] Performed By: #### A LLBG ####[facility] LABCLIA [id number] [address] [place] [address] [place] Order Comment: Speci men Type: VENOUS BLOOD SPECIMENOrdering Facility: [facility] Address: [address] [place], [place] [address] Performed By: #### 2 4344-4 ####[facility] LABCLIA [id number] [address] [address] [place] Oxygen (Bld) [Partial pressure] 95 mm Hg Normal 85-95 [facility] Comment on above: Order Comment: Speci men Type: ARTERIAL BLOOD SPECIMENOrdering Facility: [facility] Address: [address] [place], [place] [address] Performed By: #### A LLBG ####[facility] LABCLIA [id number] [place] [id number] [place] Oxygen adjusted to patient's actual temperature (Bld) [Partial pressure] 93 mmHg Normal 85-95 [facility] Comment on above: Order Comment: Speci men Type: ARTERIAL BLOOD SPECIMENOrdering Facility: [facility] Address: [address] [place] [id number] Performed By: #### A LLBG ####[facility] LABCLIA [id number] [address] [address] [place] Oxyhemoglobin (BldA) [Mass fraction] 97 % Normal 95-98 [facility] Comment on above: Order Comment: Speci men Type: ARTERIAL BLOOD SPECIMENOrdering Facility: [facility] Address: [address] [place] [id number] Performed By: #### A LLBG ####[facility] LABCLIA [id number] [place] [id number] [place] pH (Bld) 7.42 [pH] Normal 7.35-7.45 [facility] Comment on above: Order Comment: Speci men Type: ARTERIAL BLOOD SPECIMENOrdering Facility: [facility] Address: [address] [place] [address] Performed By: #### A LLBG ####[facility] LABCLIA [id number] [place] [address] [place] pH adjusted to patient's actual temperature (Bld) 7.42 Normal 7.35-7.45 [facility] Comment on above: Order Comment: Speci men Type: ARTERIAL BLOOD SPECIMENOrdering Facility: [facility] Address: [address] [place] [address] Performed By: #### A LLBG ####[facility] LABIA [id number] [place] [address] [place] Potassium [Moles/Vol] 4.6 mmol/L Normal 3.5-5.0 [facility] Comment on above: Order Comment: Speci men Type: ARTERIAL BLOOD SPECIMENOrdering Facility: [facility] Address: [address] [place] [address] Performed By: #### A LLBG ####[facility] LABCLIA [id number] [place] [address] [place] Sodium [Moles/Vol] 132 mmol/L Low 136-144 [facility] Comment on above: Order Comment: Speci men Type: ARTERIAL BLOOD SPECIMENOrdering Facility: [facility] Address: [address] [place] [address] Performed By: #### A LLBG ####[facility] LABCLIA [id number] [place] [id number] [place] Base excess Calc (Bld) [Moles/Vol] 3 mmol/L High 0-2 [facility] Comment on above: Order Comment: Speci men Type: ARTERIAL BLOOD SPECIMENOrdering Facility: [facility] Address: [address] [place] [address] Performed By: #### A LLBG ####[facility] LABCLIA [id number] [place] [address] [place] Calcium.ionized adjusted to pH 7.4 (BldA) [Moles/Vol] 1.15 mmol/L Normal 1.08-1.30 [facility] Comment on above: Order Comment: Speci men Type: ARTERIAL BLOOD SPECIMENOrdering Facility: [facility] Address: [address] [place] [address] Performed By: #### A LLBG ####[facility] LABCLIA [id number] [place] [address] [place] Carboxyhemoglobin (BldA) [Mass fraction] 1.1 % Normal 0.0-2.0 [facility] Comment on above: Order Comment: Speci men Type: ARTERIAL BLOOD SPECIMENOrdering Facility: [facility] Address: [address] [place] [address] Result Comment: Carb oxyhemoglobin Reference Range for Smokers: 2.0-8.0% Performed By: #### A LLBG ####[facility] LABIA [id number] [place] [address] [place] CO2 (Bld) [Partial pressure] 42 mm Hg Normal 36-46 [facility] Comment on above: Order Comment: Speci men Type: ARTERIAL BLOOD SPECIMENOrdering Facility: [facility] Address: [address] [place] [address] Performed By: #### A LLBG ####[facility] LABCLIA [id number] [place] [id number] [place] CO2 adjusted to patient's actual temperature (Bld) [Partial pressure] 41 mmHg Normal 36-46 [facility] Comment on above: Order Comment: Speci men Type: ARTERIAL BLOOD SPECIMENOrdering Facility: [facility] Address: [address] [place] [address] Performed By: #### A LLBG ####[facility] LABCLIA [id number] [place] [address] [place] Glucose [Mass/Vol] 141 mg/dL High 60-105 [facility] Comment on above: Order Comment: Speci men Type: ARTERIAL BLOOD SPECIMENOrdering Facility: [facility] Address: [address] [place] [address] Performed By: #### A LLBG ####[facility] LABCLIA [id number] [place] [address] [place] HCO3 (Bld) [Moles/Vol] 27 mmol/L High 22-[address] [facility] Comment on above: Order Comment: Speci men Type: ARTERIAL BLOOD SPECIMENOrdering Facility: [facility] Address: [address] [place] [address] Performed By: #### A LLBG ####[facility] LABCLIA [id number] [place] [address] [place] Hematocrit (Bld) [Volume fraction] 28.1 % Low 39.0-51.0 [facility] Comment on above: Order Comment: Speci men Type: ARTERIAL BLOOD SPECIMENOrdering Facility: [facility] Address: [address] [place] [address] Performed By: #### A LLBG ####[facility] LABCLIA [id number] [place] [id number] [place] Hemoglobin (Bld) [Mass/Vol] 9.1 g/dL Low 13.0-17.0 [facility] Comment on above: Order Comment: Speci men Type: ARTERIAL BLOOD SPECIMENOrdering Facility: [facility] Address: [address] [place] [address] Performed By: #### A LLBG ####[facility] LABCLIA [id number] [address] [address] [place] Methemoglobin (Bld) [Mass fraction] 1.1 % Normal 0.0-1.5 [facility] Comment on above: Order Comment: Speci men Type: ARTERIAL BLOOD SPECIMENOrdering Facility: [facility] Address: [address] [place], [place] [address] Performed By: #### A LLBG ####[facility] LABCLIA [id number] [place] [id number] [place] Oxygen (Bld) [Partial pressure] 97 mm Hg High 85-95 [facility] Comment on above: Order Comment: Speci men Type: ARTERIAL BLOOD SPECIMENOrdering Facility: [facility] Address: [address] [place] [address] Performed By: #### A LLBG ####[facility] LABCLIA [id number] [place] [id number] [place] Oxygen adjusted to patient's actual temperature (Bld) [Partial pressure] 95 mmHg Normal 85-95 [facility] Comment on above: Order Comment: Speci men Type: ARTERIAL BLOOD SPECIMENOrdering Facility: [facility] Address: [address] [place], [place] [id number] Performed By: #### A LLBG ####[facility] LABCLIA [id number] [address] [address] [place] Oxyhemoglobin (BldA) [Mass fraction] 95 % Normal 95-98 [facility] Comment on above: Order Comment: Speci men Type: ARTERIAL BLOOD SPECIMENOrdering Facility: [facility] Address: [address] [place] [address] Performed By: #### A LLBG ####[facility] LABCLIA [id number] [place] [id number] [place] pH (Bld) 7.42 [pH] Normal 7.35-7.45 [facility] Comment on above: Order Comment: Speci men Type: ARTERIAL BLOOD SPECIMENOrdering Facility: [facility] Address: [address] [place] [address] Performed By: #### A LLBG ####[facility] LABCLIA [id number] [place] [address] [place] pH adjusted to patient's actual temperature (Bld) 7.43 Normal 7.35-7.45 [facility] Comment on above: Order Comment: Speci men Type: ARTERIAL BLOOD SPECIMENOrdering Facility: [facility] Address: [address] [place] [address] Performed By: #### A LLBG ####[facility] LABCLIA [id number] [place] [address] [place] Sodium [Moles/Vol] 132 mmol/L Low 136-144 [facility] Comment on above: Order Comment: Speci men Type: ARTERIAL BLOOD SPECIMENOrdering Facility: [facility] Address: [address] [place] [address] Performed By: #### A LLBG ####[facility] LABCLIA [id number] [place] [id number] [place] Base excess Calc (Bld) [Moles/Vol] 3 mmol/L High 0-2 [facility] Comment on above: Order Comment: Speci men Type: ARTERIAL BLOOD SPECIMENOrdering Facility: [facility] Address: [address] [place] [address] Performed By: #### A LLBG ####[facility] LABCLIA [id number] [place] [id number] [place] Body temperature 98.42 [degF] Normal [facility] Comment on above: Order Comment: Speci men Type: ARTERIAL BLOOD SPECIMENOrdering Facility: [facility] Address: [address] [place] [address] Performed By: #### A LLBG ####[facility] LABCLIA [id number] [place] [id number] [place] Order Comment: Speci men Type: VENOUS BLOOD SPECIMENOrdering Facility: [facility] Address: [address] [place] [address] Performed By: #### 2 4344-4 ####[facility] LABIA [id number] [place] [address] [place] Calcium.ionized (Bld) [Mass/Vol] 1.14 mmol/L Normal 1.08-1.30 [facility] Comment on above: Order Comment: Speci men Type: ARTERIAL BLOOD SPECIMENOrdering Facility: [facility] Address: [address] [place] [address] Performed By: #### A LLBG ####[facility] [id number] [place] [address] [place] Calcium.ionized adjusted to pH 7.4 (BldA) [Moles/Vol] 1.14 mmol/L Normal 1.08-1.30 [facility] Comment on above: Order Comment: Speci men Type: ARTERIAL BLOOD SPECIMENOrdering Facility: [facility] Address: [address] [place] [address] Performed By: #### A LLBG ####[facility] LABIA [id number] [place] [address] [place] Carboxyhemoglobin (BldA) [Mass fraction] 1.7 % Normal 0.0-2.0 [facility] Comment on above: Order Comment: Speci men Type: ARTERIAL BLOOD SPECIMENOrdering Facility: [facility] Address: [address] [place] [address] Result Comment: Carb oxyhemoglobin Reference Range for Smokers: 2.0-8.0% Performed By: #### A LLBG ####[facility] LABIA [id number] [place] [address] [place] CO2 (Bld) [Partial pressure] 44 mm Hg Normal 36-46 [facility] Comment on above: Order Comment: Speci men Type: ARTERIAL BLOOD SPECIMENOrdering Facility: [facility] Address: [address] [place] [address] Performed By: #### A LLBG ####[facility] LABCLIA [id number] [place] [address] [place] CO2 adjusted to patient's actual temperature (Bld) [Partial pressure] 44 mmHg Normal 36-46 [facility] Comment on above: Order Comment: Speci men Type: ARTERIAL BLOOD SPECIMENOrdering Facility: [facility] Address: [address] [place] [address] Performed By: #### A LLBG ####[facility] LABCLIA [id number] [place] [address] [place] Glucose [Mass/Vol] 151 mg/dL High 60-105 [facility] Comment on above: Order Comment: Speci men Type: ARTERIAL BLOOD SPECIMENOrdering Facility: [facility] Address: [address] [place] [address] Performed By: #### A LLBG ####[facility] LABCLIA [id number] [place] [id number] [place] HCO3 (Bld) [Moles/Vol] 27 mmol/L High 22-[address] [facility] Comment on above: Order Comment: Speci men Type: ARTERIAL BLOOD SPECIMENOrdering Facility: [facility] Address: [address] [place] [address] Performed By: #### A LLBG ####[facility] LABCLIA [id number] [place] [id number] [place] Hematocrit (Bld) [Volume fraction] 28.1 % Low 39.0-51.0 [facility] Comment on above: Order Comment: Speci men Type: ARTERIAL BLOOD SPECIMENOrdering Facility: [facility] Address: [address] [place] [address] Performed By: #### A LLBG ####[facility] LABCLIA [id number] [place] [id number] [place] Hemoglobin (Bld) [Mass/Vol] 9.1 g/dL Low 13.0-17.0 [facility] Comment on above: Order Comment: Speci men Type: ARTERIAL BLOOD SPECIMENOrdering Facility: [facility] Address: [address] [place] [address] Performed By: #### A LLBG ####[facility] LABCLIA [id number] [place] [address] [place] Lactate [Moles/Vol] 0.6 mmol/L Normal 0.5-2.2 [facility] Comment on above: Order Comment: Speci men Type: ARTERIAL BLOOD SPECIMENOrdering Facility: [facility] Address: [address] [place] [address] Performed By: #### A LLBG ####[facility] LABCLIA [id number] [address] [place] Order Comment: Speci men Type: VENOUS BLOOD SPECIMENOrdering Facility: [facility] Address: [address] [place] [address] Performed By: #### 2 4344-4 ####[facility] LABCLIA [id number] [place] [address] [place] LITERS 3 Liters/min Normal [facility] Comment on above: Order Comment: Speci men Type: ARTERIAL BLOOD SPECIMENOrdering Facility: [facility] Address: [address] [place] [address] Performed By: #### A LLBG ####[facility] LABCLIA [id number] [place] [id number] [place] Order Comment: Speci men Type: VENOUS BLOOD SPECIMENOrdering Facility: [facility] Address: [address] [place] [address] Performed By: #### 2 4344-4 ####[facility] LABCLIA [id number] [place] [id number] [place] Methemoglobin (Bld) [Mass fraction] 1.0 % Normal 0.0-1.5 [facility] Comment on above: Order Comment: Speci men Type: ARTERIAL BLOOD SPECIMENOrdering Facility: [facility] Address: [address] [place] [address] Performed By: #### A LLBG ####[facility] LABCLIA [id number] [place] [address] [place] O2 THERAPY NC = Nasal Cannula Normal [facility] Comment on above: Order Comment: Speci men Type: ARTERIAL BLOOD SPECIMENOrdering Facility: [facility] Address: [address] [place] [address] Performed By: #### A LLBG ####[facility] LABCLIA [id number] [place] [id number] [place] Order Comment: Speci men Type: VENOUS BLOOD SPECIMENOrdering Facility: [facility] Address: [address] [place] [address] Performed By: #### 2 4344-4 ####[facility] LABCLIA [id number] [place] [id number] [place] Oxygen (Bld) [Partial pressure] 103 mm Hg High 85-95 [facility] Comment on above: Order Comment: Speci men Type: ARTERIAL BLOOD SPECIMENOrdering Facility: [facility] Address: [address] [place] [address] Performed By: #### A LLBG ####[facility] LABCLIA [id number] [address] [address] [place] Oxygen adjusted to patient's actual temperature (Bld) [Partial pressure] 103 mmHg High 85-95 [facility] Comment on above: Order Comment: Speci men Type: ARTERIAL BLOOD SPECIMENOrdering Facility: [facility] Address: [address] [place], [place] [address] Performed By: #### A LLBG ####[facility] LABCLIA [id number] [address] [address] [place] Oxyhemoglobin (BldA) [Mass fraction] 96 % Normal 95-98 [facility] Comment on above: Order Comment: Speci men Type: ARTERIAL BLOOD SPECIMENOrdering Facility: [facility] Address: [address] [place] [address] Performed By: #### A LLBG ####[facility] LABCLIA [id number] [place] [id number] [place] pH (Bld) 7.41 [pH] Normal 7.35-7.45 [facility] Comment on above: Order Comment: Speci men Type: ARTERIAL BLOOD SPECIMENOrdering Facility: [facility] Address: [address] [place] [address] Performed By: #### A LLBG ####[facility] LABCLIA [id number] [place] [address] [place] pH adjusted to patient's actual temperature (Bld) 7.41 Normal 7.35-7.45 [facility] Comment on above: Order Comment: Speci men Type: ARTERIAL BLOOD SPECIMENOrdering Facility: [facility] Address: [address] [place] [address] Performed By: #### A LLBG ####[facility] LABCLIA [id number] [place] [id number] [place] Potassium [Moles/Vol] 4.4 mmol/L Normal 3.5-5.0 [facility] Comment on above: Order Comment: Speci men Type: ARTERIAL BLOOD SPECIMENOrdering Facility: [facility] Address: [address] [place], [place] [address] Performed By: #### A LLBG ####[facility] LABCLIA [id number] [place] [id number] [place] Sodium [Moles/Vol] 132 mmol/L Low 136-144 [facility] Comment on above: Order Comment: Speci men Type: ARTERIAL BLOOD SPECIMENOrdering Facility: [facility] Address: [address] [place] [address] Performed By: #### A LLBG ####[facility] LABCLIA [id number] [place] [address] [place] Base excess Calc (Bld) [Moles/Vol] 2 mmol/L Normal 0-2 [facility] Comment on above: Order Comment: Speci men Type: ARTERIAL BLOOD SPECIMENOrdering Facility: [facility] Address: [address] [place] [address] Performed By: #### A LLBG ####[facility] LABCLIA [id number] [place] [address] [place] Body temperature 98.6 [degF] Normal [facility] Comment on above: Order Comment: Speci men Type: ARTERIAL BLOOD SPECIMENOrdering Facility: [facility] Address: [address] [place] [address] Performed By: #### A LLBG ####[facility] LABCLIA [id number] [place] [address] [place] Order Comment: Speci men Type: VENOUS BLOOD SPECIMENOrdering Facility: [facility] Address: [address] [place] [address] Performed By: #### 2 4344-4 ####[facility] LABCLIA [id number] [place] [address] [place] Calcium.ionized (Bld) [Mass/Vol] 1.14 mmol/L Normal 1.08-1.30 [facility] Comment on above: Order Comment: Speci men Type: ARTERIAL BLOOD SPECIMENOrdering Facility: [facility] Address: [address] [place] [address] Performed By: #### A LLBG ####[facility] LABCLIA [id number] [place] [address] [place] Calcium.ionized adjusted to pH 7.4 (BldA) [Moles/Vol] 1.14 mmol/L Normal 1.08-1.30 [facility] Comment on above: Order Comment: Speci men Type: ARTERIAL BLOOD SPECIMENOrdering Facility: [facility] Address: [address] [place] [address] Performed By: #### A LLBG ####[facility] LABCLIA [id number] [place] [address] [place] Carboxyhemoglobin (BldA) [Mass fraction] 1.6 % Normal 0.0-2.0 [facility] Comment on above: Order Comment: Speci men Type: ARTERIAL BLOOD SPECIMENOrdering Facility: [facility] Address: [address] [place] [address] Result Comment: Carb oxyhemoglobin Reference Range for Smokers: 2.0-8.0% Performed By: #### A LLBG ####[facility] LABCLIA [id number] [place] [address] [place] CO2 (Bld) [Partial pressure] 42 mm Hg Normal 36-46 [facility] Comment on above: Order Comment: Speci men Type: ARTERIAL BLOOD SPECIMENOrdering Facility: [facility] Address: [address] [place] [address] Performed By: #### A LLBG ####[facility] LABCLIA [id number] [place] [address] [place] Glucose [Mass/Vol] 184 mg/dL High 60-105 [facility] Comment on above: Order Comment: Speci men Type: ARTERIAL BLOOD SPECIMENOrdering Facility: [facility] Address: [address] [place] [address] Performed By: #### A LLBG ####[facility] LABCLIA [id number] [place] [address] [place] HCO3 (Bld) [Moles/Vol] 26 mmol/L Normal 22-[address] [facility] Comment on above: Order Comment: Speci men Type: ARTERIAL BLOOD SPECIMENOrdering Facility: [facility] Address: [address] [place] [address] Performed By: #### A LLBG ####[facility] LABCLIA [id number] [place] [address] [place] Hematocrit (Bld) [Volume fraction] 28.2 % Low 39.0-51.0 [facility] Comment on above: Order Comment: Speci men Type: ARTERIAL BLOOD SPECIMENOrdering Facility: [facility] Address: [address] [place] [address] Performed By: #### A LLBG ####[facility] LABCLIA [id number] [place] [address] [place] Hemoglobin (Bld) [Mass/Vol] 9.1 g/dL Low 13.0-17.0 [facility] Comment on above: Order Comment: Speci men Type: ARTERIAL BLOOD SPECIMENOrdering Facility: [facility] Address: [address] [place] [address] Performed By: #### A LLBG ####[facility] LABCLIA [id number] [address] Order Comment: Speci men Type: BLOOD SPECIMENOrdering Facility: [facility] Address: [address] [place] [address] Performed By: #### 5 8410-2 ####[facility] LABCLIA [id number] [place] [address] [place] Lactate [Moles/Vol] 1.3 mmol/L Normal 0.5-2.2 [facility] Comment on above: Order Comment: Speci men Type: ARTERIAL BLOOD SPECIMENOrdering Facility: [facility] Address: [address] [place] [address] Performed By: #### A LLBG ####[facility] LABCLIA [id number] [address] [place] Order Comment: Speci men Type: VENOUS BLOOD SPECIMENOrdering Facility: [facility] Address: [address] [place] [address] Performed By: #### 2 4344-4 ####[facility] LABCLIA [id number] [address] [place] [address] [place] LITERS 2 Liters/min Normal [facility] Comment on above: Order Comment: Speci men Type: ARTERIAL BLOOD SPECIMENOrdering Facility: [facility] Address: [address] [place], [place] [address] Performed By: #### A LLBG ####[facility] LABCLIA [id number] [address] [place] [address] [place] Order Comment: Speci men Type: VENOUS BLOOD SPECIMENOrdering Facility: [facility] Address: [address] [place], [place] [address] Performed By: #### 2 4344-4 ####[facility] LABCLIA [id number] [address] [place] [address] [place] Methemoglobin (Bld) [Mass fraction] 1.3 % Normal 0.0-1.5 [facility] Comment on above: Order Comment: Speci men Type: ARTERIAL BLOOD SPECIMENOrdering Facility: [facility] Address: [address] [place], [place] [address] Performed By: #### A LLBG ####[facility] LABCLIA [id number] [address] [address] [place] O2 THERAPY NC = Nasal Cannula Normal [facility] Comment on above: Order Comment: Speci men Type: ARTERIAL BLOOD SPECIMENOrdering Facility: [facility] Address: [address] [place], [place] [address] Performed By: #### A LLBG ####[facility] LABCLIA [id number] [address] [place] [address] [place] Order Comment: Speci men Type: VENOUS BLOOD SPECIMENOrdering Facility: [facility] Address: [address] [place], [place] [address] Performed By: #### 2 4344-4 ####[facility] LABCLIA [id number] [place] [address] [place] Oxygen (Bld) [Partial pressure] 112 mm Hg High 85-95 [facility] Comment on above: Order Comment: Speci men Type: ARTERIAL BLOOD SPECIMENOrdering Facility: [facility] Address: [address] [place] [address] Performed By: #### A LLBG ####[facility] LABIA [id number] [place] [address] [place] Oxyhemoglobin (BldA) [Mass fraction] 96 % Normal 95-98 [facility] Comment on above: Order Comment: Speci men Type: ARTERIAL BLOOD SPECIMENOrdering Facility: [facility] Address: [address] [place] [address] Performed By: #### A LLBG ####[facility] LABIA [id number] [place] [address] [place] pH (Bld) 7.41 [pH] Normal 7.35-7.45 [facility] Comment on above: Order Comment: Speci men Type: ARTERIAL BLOOD SPECIMENOrdering Facility: [facility] Address: [address] [place] [address] Performed By: #### A LLBG ####[facility] LABCLIA [id number] [place] [address] [place] Potassium [Moles/Vol] 4.5 mmol/L Normal 3.5-5.0 [facility] Comment on above: Order Comment: Speci men Type: ARTERIAL BLOOD SPECIMENOrdering Facility: [facility] Address: [address] [place] [address] Performed By: #### A LLBG ####[facility] LABIA [id number] [place] [id number] [place] Sodium [Moles/Vol] 132 mmol/L Low 136-144 [facility] Comment on above: Order Comment: Speci men Type: ARTERIAL BLOOD SPECIMENOrdering Facility: [facility] Address: [address] [place] [address] Performed By: #### A LLBG ####[facility] LABCLIA [id number] [place] [address] [place] Order Comment: Speci men Type: VENOUS BLOOD SPECIMENOrdering Facility: [facility] Address: [address] [place] [address] Performed By: #### 2 4344-4 ####[facility] LABCLIA [id number] [address] [place] CASE MANAGEMon 10-20-2024 CASE MANAGEM Normal [facility] CBC panel Auto (Bld)on 10-20 Erythrocyte distribution width (RBC) [Ratio] 17.2 % High 11.5-15.0 [facility] Comment on above: Order Comment: Speci men Type: BLOOD SPECIMENOrdering Facility: [facility] Address: [address] [place] [address] Performed By: #### 5 8410-2 ####[facility] LABIA [id number] [address] [place] Hematocrit (Bld) [Volume fraction] 27.9 % Low 39.0-51.0 [facility] Comment on above: Order Comment: Speci men Type: BLOOD SPECIMENOrdering Facility: [facility] Address: [address] [place] [address] Performed By: #### 5 8410-2 ####[facility] LABIA [id number] [place] [id number] [place] MCH (RBC) [Entitic mass] 32.3 pg Normal 26.0-34.0 [facility] Comment on above: Order Comment: Speci men Type: BLOOD SPECIMENOrdering Facility: [facility] Address: [address] [place], [place] [address] Performed By: #### 5 8410-2 ####[facility] LABCLIA [id number] [place] [address] [place] MCHC (RBC) [Mass/Vol] 32.6 g/dL Normal 30.5-36.0 [facility] Comment on above: Order Comment: Speci men Type: BLOOD SPECIMENOrdering Facility: [facility] Address: [address] [place] [address] Performed By: #### 5 8410-2 ####[facility] LABIA [id number] [place] [address] [place] MCV (RBC) [Entitic vol] 98.9 fL Normal 80.0-100.0 [facility] Comment on above: Order Comment: Speci men Type: BLOOD SPECIMENOrdering Facility: [facility] Address: [address] [place] [address] Performed By: #### 5 8410-2 ####[facility] LABIA [id number] [place] [address] [place] Nucleated RBC (Bld) [#/Vol] 10*3/uL Normal <0.01 [facility] Comment on above: Order Comment: Speci men Type: BLOOD SPECIMENOrdering Facility: [facility] Address: [address] [place] [address] Performed By: #### 5 8410-2 ####[facility] LABIA [id number] [place] [address] [place] Platelet mean volume (Bld) [Entitic vol] 12.0 fL Normal 9.0-12.7 [facility] Comment on above: Order Comment: Speci men Type: BLOOD SPECIMENOrdering Facility: [facility] Address: [address] [place] [address] Performed By: #### 5 8410-2 ####[facility] LABCLIA [id number] [address] [address] [place] Platelets (Bld) [#/Vol] 105 10*3/uL Low 150-400 [facility] Comment on above: Order Comment: Speci men Type: BLOOD SPECIMENOrdering Facility: [facility] Address: [address] [place] [address] Performed By: #### 5 8410-2 ####[facility] LABCLIA [id number] [place] [id number] [place] RBC (Bld) [#/Vol] 2.82 10*6/uL Low 4.20-6.00 [facility] Comment on above: Order Comment: Speci men Type: BLOOD SPECIMENOrdering Facility: [facility] Address: [address] [place] [address] Performed By: #### 5 8410-2 ####[facility] LABCLIA [id number] [place] [address] [place] WBC (Bld) [#/Vol] 4.67 10*3/uL Normal 3.70-11.00 [facility] Comment on above: Order Comment: Speci men Type: BLOOD SPECIMENOrdering Facility: [facility] Address: [address] [place] [address] Performed By: #### 5 8410-2 ####[facility] LABCLIA [id number] [place] [id number] [place] CONSULT PROGon 10-20-2024 CONSULT PROG Normal [facility] CONSULT PROG Normal [facility] Comprehensive metabolic 2000 panelon 10-20-2024 Albumin [Mass/Vol] 2.7 g/dL Low 3.9-4.9 [facility] Comment on above: Order Comment: Speci men Type: BLOOD SPECIMENOrdering Facility: [facility] Address: [address] [place] [address] Performed By: #### 2 777-1, 24208-7, 4542-7, 62450-1 ####[facility] LABCLIA [id number] [place] [id number] [place] ALP [Catalytic activity/Vol] 102 U/L Normal 38-113 [facility] Comment on above: Order Comment: Speci men Type: BLOOD SPECIMENOrdering Facility: [facility] Address: [address] [place] [address] Performed By: #### 2 777-1, 91849-7, 4541-7, 66994-9 ####[facility] LABCLIA [id number] [place] [id number] [place] ALT [Catalytic activity/Vol] 11 U/L Normal 10-54 [facility] Comment on above: Order Comment: Speci men Type: BLOOD SPECIMENOrdering Facility: [facility] Address: [address] [place] [address] Performed By: #### 2 777-1, 17416-6, 7, 44046-6 ####[facility] LABCLIA [id number] [place] [id number] [place] Anion gap [Moles/Vol] 10 mmol/L Normal 8-15 [facility] Comment on above: Order Comment: Speci men Type: BLOOD SPECIMENOrdering Facility: [facility] Address: [address] [place] [address] Performed By: #### 2 777-1, 03522-6, 7, 26826-1 ####[facility] LABCLIA [id number] [place] [id number] [place] AST [Catalytic activity/Vol] 18 U/L Normal 14-40 [facility] Comment on above: Order Comment: Speci men Type: BLOOD SPECIMENOrdering Facility: [facility] Address: [address] [place] [address] Performed By: #### 2 777-1, 04624-4, 4541-7, 20720-9 ####[facility] LABCLIA [id number] [address] [address] [place] Bilirubin [Mass/Vol] 0.2 mg/dL Normal 0.2-1.3 [facility] Comment on above: Order Comment: Speci men Type: BLOOD SPECIMENOrdering Facility: [facility] Address: [address] [place] [address] Performed By: #### 2 777-1, 55060-3, 7, 85215-6 ####[facility] LABCLIA [id number] [address] [address] [place] Calcium [Mass/Vol] 8.0 mg/dL Low 8.5-10.2 [facility] Comment on above: Order Comment: Speci men Type: BLOOD SPECIMENOrdering Facility: [facility] Address: [address] [place] [address] Performed By: #### 2 777-1, 18403-3, 7, ####[facility] LABCLIA [id number] [place] [id number] [place] Chloride [Moles/Vol] 100 mmol/L Normal 98-107 [facility] Comment on above: Order Comment: Speci men Type: BLOOD SPECIMENOrdering Facility: [facility] Address: [address] [place] [address] Performed By: #### 2 777-1, 67939-1, 4541-08, 29175-3 ####[facility] LABCLIA [id number] [address] [address] [place] CO2 [Moles/Vol] 23 mmol/L Normal 22-30 [facility] Comment on above: Order Comment: Speci men Type: BLOOD SPECIMENOrdering Facility: [facility] Address: [address] [place] [address] Performed By: #### 2 777-1, 22558-5, 7, 36088-6 ####[facility] LABCLIA [id number] [address] [address] [place] Creatinine [Mass/Vol] 1.51 mg/dL High 0.73-1.22 [facility] Comment on above: Order Comment: Speci men Type: BLOOD SPECIMENOrdering Facility: [facility] Address: [address] [place] [address] Performed By: #### 2 777-1, 18152-9, 4541-7, 44835-9 ####[facility] [id number] [address] [address] [place] eGFRcr SerPlBld CKD-EPI 2020 52 mL/min/1.73m??? Low >=60 [facility] Comment on above: Order Comment: Gini nowak Type: BLOOD SPECIMENOrdering Facility: [facility] Address: [address] [place] [address] Result Comment: Gurwinder mated Glomerular Filtration Rate [...] reflect actual GFR. Performed By: #### 2 777-1, 57583-7, 2-7, 75413-8 ####[facility] LABIA [id number] [address] [address] [place] Glucose [Mass/Vol] 179 mg/dL High 74-99 [facility] Comment on above: Order Comment: Speci men Type: BLOOD SPECIMENOrdering Facility: [facility] Address: [address] [place] [address] Result Comment: The [place] [employer] (ADA) provides guidance for cutoff values for fasting glucose and random glucose. The ADA defines fasting as no caloric intake for at least 8 hours. Fasting plasma glucose results between 100 to 125 mg/dL indicate increased risk for diabetes (prediabetes).Fasting plasma glucose results greater than or equal to 126 mg/dL meet the criteria for diagnosis of diabetes. In the absence of unequivocal hyperglycemia, results should be confirmed by repeat testing. In a patient with classic symptoms of hyperglycemia or hyperglycemic crisis, random plasma glucose results greater than or equal to 200 mg/dL meet the criteria for diagnosis of diabetes.Reference: Standards of Medical Care in Diabetes 2016, [place] [employer]. Diabetes Care. 2016.39(Suppl 1). Performed By: #### 2 777-1, 81243-0, 7, 55775-3 ####[facility] LABCLIA [id number] [address] [address] [place] Potassium [Moles/Vol] 4.7 mmol/L Normal 3.7-5.1 [facility] Comment on above: Order Comment: Speci men Type: BLOOD SPECIMENOrdering Facility: [facility] Address: [address] [place] [address] Performed By: #### 2 777-1, 93222-4, 4541-08, ####[facility] LABCLIA [id number] [place] [id number] [place] Protein [Mass/Vol] 5.2 g/dL Low 6.3-8.0 [facility] Comment on above: Order Comment: Speci men Type: BLOOD SPECIMENOrdering Facility: [facility] Address: [address] [place] [address] Performed By: #### 2 777-1, 73818-6, 4541-08, ####[facility] LABCLIA [id number] [place] [id number] [place] Sodium [Moles/Vol] 133 mmol/L Low 136-144 [facility] Comment on above: Order Comment: Speci men Type: BLOOD SPECIMENOrdering Facility: [facility] Address: [address] [place] [address] Performed By: #### 2 777-1, 51840-0, 7, 55004-7 ####[facility] LABCLIA [id number] [place] [address] [place] Urea nitrogen [Mass/Vol] 23 mg/dL Normal 9-24 [facility] Comment on above: Order Comment: Gini nowak Type: BLOOD SPECIMENOrdering Facility: [facility] Address: [address] [place] [address] Performed By: #### 2 777-1, 93407-8, 4542-7, 52342-5 ####[facility] [id number] [place] [address] [place] Fact Xa PPP-aCncon 5 Coagulation factor X activated act Coag Qn (PPP) 0.51 IU/mL High <0.10 [facility] Comment on above: Order Comment: Gini nowak Type: BLOOD SPECIMENOrdering Facility: [facility] Address: [address] [place] [address] Result Comment: The recommended therapeutic range for treatment of venous and arterial thrombosis with intravenous unfractionated heparin is an anti Xa activity level of 0.3 to 0.7 IU/mL. In patients with concomitant therapy with thrombolytic agents and/or platelet glycoprotein IIb/IIIa antagonists, the recommended therapeutic range is an anti Xa activity level of 0.2 to 0.5 IU/mL. Performed By: #### 3 217-7 ####[facility] [id number] [place] [address] [place] Coagulation factor X activated act Coag Qn (PPP) 0.51 IU/mL High <0.10 [facility] Comment on above: Order Comment: Gini nowak Type: BLOOD SPECIMENOrdering Facility: [facility] Address: [address] [place] [address] Result Comment: The recommended therapeutic range for treatment of venous and arterial thrombosis with intravenous unfractionated heparin is an anti Xa activity level of 0.3 to 0.7 IU/mL. In patients with concomitant therapy with thrombolytic agents and/or platelet glycoprotein IIb/IIIa antagonists, the recommended therapeutic range is an anti Xa activity level of 0.2 to 0.5 IU/mL. Performed By: #### 3 4528-0, 3217-7 ####[facility] LABCLIA [id number] [address], [place] [address] [place] Gas + CO Pnl BldVon 10-21-19 25 Body temperature 98.24 [degF] Normal [facility] Comment on above: Order Comment: Speci men Type: VENOUS BLOOD SPECIMENOrdering Facility: [facility] Address: [address] [place] [address] Performed By: #### 2 4344-4 ####[facility] LABCLIA [id number] [address], [place] [address] [place] Order Comment: Speci men Type: ARTERIAL BLOOD SPECIMENOrdering Facility: [facility] Address: [address] [place] [address] Performed By: #### A LLBG ####[facility] LABCLIA [id number] [address], [facility]95 [place] HCO3 (Bld) [Moles/Vol] 27 mmol/L High 22-26 [facility] Comment on above: Order Comment: Speci men Type: VENOUS BLOOD SPECIMENOrdering Facility: [facility] Address: [address] [place] [address] Performed By: #### 2 4344-4 ####[facility] LABCLIA [id number] [address], [facility]95 [place] Order Comment: Speci men Type: ARTERIAL BLOOD SPECIMENOrdering Facility: [facility] Address: [address] [place] [address] Performed By: #### A LLBG ####[facility] LABCLIA [id number] [place] [address] [place] LITERS 3 Liters/min [facility] Comment on above: Order Comment: Speci men Type: VENOUS BLOOD SPECIMENOrdering Facility: [facility] Address: [address] [place] [address] Performed By: #### 2 4344-4 ####[facility] LABCLIA [id number] [address] [address] [place] Order Comment: Speci men Type: ARTERIAL BLOOD SPECIMENOrdering Facility: ST. [facility] Address: [address] [id number] Performed By: #### A LLBG ####[facility] LABCLIA [id number] [address] [place] [address] [place] O2 THERAPY NC = Nasal Cannula Normal [facility] Comment on above: Order Comment: Speci men Type: VENOUS BLOOD SPECIMENOrdering Facility: [facility] Address: [address] [place] [address] Performed By: #### 2 4344-4 ####[facility] LABCLIA [id number] [place] [id number] [place] Order Comment: Speci men Type: ARTERIAL BLOOD SPECIMENOrdering Facility: [facility] Address: [address] [place], [place] [address] Performed By: #### A LLBG ####[facility] LABCLIA [id number] [place] [id number] [place] Sodium [Moles/Vol] 134 mmol/L Low 136-144 [facility] Comment on above: Order Comment: Speci men Type: VENOUS BLOOD SPECIMENOrdering Facility: [facility] Address: [address] [id number] Performed By: #### 2 4344-4 ####[facility] LABCLIA [id number] [place] [id number] [place] Order Comment: Speci men Type: ARTERIAL BLOOD SPECIMENOrdering Facility: [facility] Address: [address] [id number] Performed By: #### A LLBG ####[facility] LABCLIA [id number] [address] [address] [place] Body temperature 97.88 [degF] Normal [facility] Comment on above: Order Comment: Speci men Type: VENOUS BLOOD SPECIMENOrdering Facility: [facility] Address: [address] [place] [address] Performed By: #### 2 4344-4 ####[facility] LABCLIA [id number] [place] [id number] [place] Order Comment: Speci men Type: ARTERIAL BLOOD SPECIMENOrdering Facility: [facility] Address: [address] [place] [address] Performed By: #### A LLBG ####[facility] LABCLIA [id number] [place] [address] [place] Calcium.ionized (Bld) [Mass/Vol] 1.14 mmol/L Normal 1.08-1.30 [facility] Comment on above: Order Comment: Speci men Type: VENOUS BLOOD SPECIMENOrdering Facility: [facility] Address: [address] [place] [address] Performed By: #### 2 4344-4 ####[facility] LABCLIA [id number] [address] [place] Order Comment: Speci men Type: ARTERIAL BLOOD SPECIMENOrdering Facility: [facility] Address: [address] [place] [address] Performed By: #### A LLBG ####[facility] LABCLIA [id number] [place] [id number] [place] Lactate [Moles/Vol] 0.7 mmol/L Normal 0.5-2.2 [facility] Comment on above: Order Comment: Speci men Type: VENOUS BLOOD SPECIMENOrdering Facility: [facility] Address: [address] [place], [place] [address] Performed By: #### 2 4344-4 ####[facility] LABCLIA [id number] [place] [id number] [facility] [place] Order Comment: Speci men Type: ARTERIAL BLOOD SPECIMENOrdering Facility: [facility] Address: [address] [place] [address] Performed By: #### A LLBG ####[facility] LABCLIA [id number] [address] [address] [place] O2 THERAPY NC = Nasal Cannula Normal [facility] Comment on above: Order Comment: Speci men Type: VENOUS BLOOD SPECIMENOrdering Facility: [facility] Address: [address] [place] [address] Performed By: #### 2 4344-4 ####[facility] LABCLIA [id number] [address] [place] Order Comment: Speci men Type: ARTERIAL BLOOD SPECIMENOrdering Facility: [facility] Address: [address] [place] [address] Performed By: #### A LLBG ####[facility] LABCLIA [id number] [place] [address] [place] Potassium [Moles/Vol] 4.6 mmol/L Normal 3.5-5.0 [facility] Comment on above: Order Comment: Speci men Type: VENOUS BLOOD SPECIMENOrdering Facility: [facility] Address: [address] [place] [address] Performed By: #### 2 4344-4 ####[facility] LABCLIA [id number] [place] [id number] [facility] [place] Order Comment: Speci men Type: ARTERIAL BLOOD SPECIMENOrdering Facility: [facility] Address: [address] [place] [address] Performed By: #### A LLBG ####[facility] LABCLIA [id number] [address] [address] [place] Gas and Carbon monoxide pane l (BldV)on 10-20-2024 Base excess Calc (BldV) [Moles/Vol] 1 mmol/L Normal 0-2 [facility] Comment on above: Order Comment: Speci men Type: VENOUS BLOOD SPECIMENOrdering Facility: [facility] Address: [address] [place] [address] Performed By: #### 2 4344-4 ####[facility] LABCLIA [id number] [place] [address] [place] Calcium.ionized (Bld) [Mass/Vol] 1.16 mmol/L Normal 1.08-1.30 [facility] Comment on above: Order Comment: Speci men Type: VENOUS BLOOD SPECIMENOrdering Facility: [facility] Address: [address] [place] [address] Performed By: #### 2 4344-4 ####[facility] LABCLIA [id number] [place] [address] [place] Calcium.ionized adjusted to pH 7.4 (BldA) [Moles/Vol] 1.12 mmol/L Normal 1.08-1.30 [facility] Comment on above: Order Comment: Speci men Type: VENOUS BLOOD SPECIMENOrdering Facility: [facility] Address: [address] [place] [address] Performed By: #### 2 4344-4 ####[facility] LABIA [id number] [place] [address] [place] Carboxyhemoglobin (BldV) [Mass fraction] 1.3 % Normal 0.0-2.0 [facility] Comment on above: Order Comment: Speci men Type: VENOUS BLOOD SPECIMENOrdering Facility: [facility] Address: [address] [place] [address] Result Comment: Carb oxyhemoglobin Reference Range for Smokers: 2.0-8.0% Performed By: #### 2 4344-4 ####[facility] LABCLIA [id number] [place] [address] [place] CO2 (BldV) [Partial pressure] 52 mm[Hg] Normal 42-55 [facility] Comment on above: Order Comment: Speci men Type: VENOUS BLOOD SPECIMENOrdering Facility: [facility] Address: [address] [place] [address] Performed By: #### 2 4344-4 ####[facility] LABCLIA [id number] [address] [place] [address] [place] CO2 adjusted to patient's actual temperature (BldV) [Partial pressure] 51 mmHg Normal 42-55 [facility] Comment on above: Order Comment: Speci men Type: VENOUS BLOOD SPECIMENOrdering Facility: [facility] Address: [address] [place] [address] Performed By: #### 2 4344-4 ####[facility] LABCLIA [id number] [address] [place] [address] [place] Glucose [Mass/Vol] 221 mg/dL High 60-105 [facility] Comment on above: Order Comment: Speci men Type: VENOUS BLOOD SPECIMENOrdering Facility: [facility] Address: [address] [place] [address] Performed By: #### 2 4344-4 ####[facility] LABCLIA [id number] [address] [address] [place] Hematocrit (Bld) [Volume fraction] 27.4 % Low 39.0-51.0 [facility] Comment on above: Order Comment: Speci men Type: VENOUS BLOOD SPECIMENOrdering Facility: [facility] Address: [address] [place] [address] Performed By: #### 2 4344-4 ####[facility] LABCLIA [id number] [address] [id number] [place] Hemoglobin (Bld) [Mass/Vol] 8.8 g/dL Low 13.0-17.0 [facility] Comment on above: Order Comment: Speci men Type: VENOUS BLOOD SPECIMENOrdering Facility: [facility] Address: [address] [place] [address] Performed By: #### 2 4344-4 ####[facility] LABCLIA [id number] [address] [address] [place] Lactate [Moles/Vol] 2.2 mmol/L Normal 0.5-2.2 [facility] Comment on above: Order Comment: Speci men Type: VENOUS BLOOD SPECIMENOrdering Facility: [facility] Address: [address] [place], [place] [address] Performed By: #### 2 4344-4 ####[facility] LABCLIA [id number] [address] [id number] [place] Methemoglobin (Bld) [Mass fraction] 1.6 % High 0.0-1.5 [facility] Comment on above: Order Comment: Speci men Type: VENOUS BLOOD SPECIMENOrdering Facility: [facility] Address: [address] [place], [place] [address] Performed By: #### 2 4344-4 ####[facility] LABCLIA [id number] [address] [address] [place] Oxygen (BldV) [Partial pressure] 42 mm[Hg] Normal 35-45 [facility] Comment on above: Order Comment: Speci men Type: VENOUS BLOOD SPECIMENOrdering Facility: [facility] Address: [address] [place], [place] [address] Performed By: #### 2 4344-4 ####[facility] LABCLIA [id number] [address] [address] [place] Oxygen adjusted to patient's actual temperature (BldV) [Partial pressure] 41 mmHg Normal 35-45 [facility] Comment on above: Order Comment: Speci men Type: VENOUS BLOOD SPECIMENOrdering Facility: [facility] Address: [address] [place] [address] Performed By: #### 2 4344-4 ####[facility] LABCLIA [id number] [address] [address] [place] Oxygen saturation in Venous blood 69 % Normal 60-85 [facility] Comment on above: Order Comment: Speci men Type: VENOUS BLOOD SPECIMENOrdering Facility: [facility] Address: [address] [place] [address] Performed By: #### 2 4344-4 ####[facility] LABCLIA [id number] [address] [address] [place] Oxyhemoglobin (BldV) [Mass fraction] 67 % Normal 60-85 [facility] Comment on above: Order Comment: Speci men Type: VENOUS BLOOD SPECIMENOrdering Facility: [facility] Address: [address] [place], [place] [address] Performed By: #### 2 4344-4 ####[facility] LABCLIA [id number] [address] [id number] [place] pH (BldV) 7.34 [pH] Normal 7.32-7.42 [facility] Comment on above: Order Comment: Speci men Type: VENOUS BLOOD SPECIMENOrdering Facility: [facility] Address: [address] [place], [place] [address] Performed By: #### 2 4344-4 ####[facility] LABCLIA [id number] [place] [address] [place] pH adjusted to patient's actual temperature (BldV) 7.34 Normal 7.32-7.42 [facility] Comment on above: Order Comment: Speci men Type: VENOUS BLOOD SPECIMENOrdering Facility: [facility] Address: [address] [place], [place] [address] Performed By: #### 2 4344-4 ####[facility] LABCLIA [id number] [address] [id number] [place] Potassium [Moles/Vol] 4.2 mmol/L Normal 3.5-5.0 [facility] Comment on above: Order Comment: Speci men Type: VENOUS BLOOD SPECIMENOrdering Facility: [facility] Address: [address] [place] [address] Performed By: #### 2 4344-4 ####[facility] LABIA [id number] [place] [address] [place] Base excess Calc (BldV) [Moles/Vol] 3 mmol/L High 0-2 [facility] Comment on above: Order Comment: Speci men Type: VENOUS BLOOD SPECIMENOrdering Facility: [facility] Address: [address] [place] [address] Performed By: #### 2 4344-4 ####[facility] [id number] [place] [address] [place] Calcium.ionized (Bld) [Mass/Vol] 1.14 mmol/L Normal 1.08-1.30 [facility] Comment on above: Order Comment: Speci men Type: VENOUS BLOOD SPECIMENOrdering Facility: [facility] Address: [address] [place] [address] Performed By: #### 2 4344-4 ####[facility] [id number] [place] [address] [place] Calcium.ionized adjusted to pH 7.4 (BldA) [Moles/Vol] 1.12 mmol/L Normal 1.08-1.30 [facility] Comment on above: Order Comment: Speci men Type: VENOUS BLOOD SPECIMENOrdering Facility: [facility] Address: [address] [place] [address] Performed By: #### 2 4344-4 ####[facility] [id number] [place] [address] [place] Carboxyhemoglobin (BldV) [Mass fraction] 1.0 % Normal 0.0-2.0 [facility] Comment on above: Order Comment: Speci men Type: VENOUS BLOOD SPECIMENOrdering Facility: [facility] Address: [address] [place] [address] Result Comment: Carb oxyhemoglobin Reference Range for Smokers: 2.0-8.0% Performed By: #### 2 4344-4 ####[facility] LABCLIA [id number] [address] [address] [place] CO2 (BldV) [Partial pressure] 49 mm[Hg] Normal 42-55 [facility] Comment on above: Order Comment: Speci men Type: VENOUS BLOOD SPECIMENOrdering Facility: [facility] Address: [address] [place] [address] Performed By: #### 2 4344-4 ####[facility] LABCLIA [id number] [address] [place] CO2 adjusted to patient's actual temperature (BldV) [Partial pressure] 48 mmHg Normal 42-55 [facility] Comment on above: Order Comment: Speci men Type: VENOUS BLOOD SPECIMENOrdering Facility: [facility] Address: [address] [place] [address] Performed By: #### 2 4344-4 ####[facility] LABCLIA [id number] [place] [id number] [place] Glucose [Mass/Vol] 272 mg/dL High 60-105 [facility] Comment on above: Order Comment: Speci men Type: VENOUS BLOOD SPECIMENOrdering Facility: [facility] Address: [address] [place], [place] [address] Performed By: #### 2 4344-4 ####[facility] LABCLIA [id number] [address] [address] [place] HCO3 (Bld) [Moles/Vol] 28 mmol/L Normal 24-[address] [facility] Comment on above: Order Comment: Speci men Type: VENOUS BLOOD SPECIMENOrdering Facility: [facility] Address: [address] [place] [address] Performed By: #### 2 4344-4 ####[facility] LABCLIA [id number] [address] [address] [place] Hematocrit (Bld) [Volume fraction] 28.3 % Low 39.0-51.0 [facility] Comment on above: Order Comment: Speci men Type: VENOUS BLOOD SPECIMENOrdering Facility: [facility] Address: [address] [place] [address] Performed By: #### 2 4344-4 ####[facility] LABCLIA [id number] [place] [address] [place] Hemoglobin (Bld) [Mass/Vol] 9.1 g/dL Low 13.0-17.0 [facility] Comment on above: Order Comment: Speci men Type: VENOUS BLOOD SPECIMENOrdering Facility: [facility] Address: [address] [place] [address] Performed By: #### 2 4344-4 ####[facility] LABCLIA [id number] [place] [address] [place] Lactate [Moles/Vol] 1.2 mmol/L Normal 0.5-2.2 [facility] Comment on above: Order Comment: Speci men Type: VENOUS BLOOD SPECIMENOrdering Facility: [facility] Address: [address] [place] [address] Performed By: #### 2 4344-4 ####[facility] LABIA [id number] [place] [address] [place] Methemoglobin (Bld) [Mass fraction] 0.7 % Normal 0.0-1.5 [facility] Comment on above: Order Comment: Speci men Type: VENOUS BLOOD SPECIMENOrdering Facility: [facility] Address: [address] [place] [address] Performed By: #### 2 4344-4 ####[facility] LABCLIA [id number] [place] [id number] [place] Oxygen (BldV) [Partial pressure] 38 mm[Hg] Normal 35-45 [facility] Comment on above: Order Comment: Speci men Type: VENOUS BLOOD SPECIMENOrdering Facility: [facility] Address: [address] [place] [address] Performed By: #### 2 4344-4 ####[facility] LABCLIA [id number] [address] [address] [place] Oxygen adjusted to patient's actual temperature (BldV) [Partial pressure] 37 mmHg Normal 35-45 [facility] Comment on above: Order Comment: Speci men Type: VENOUS BLOOD SPECIMENOrdering Facility: [facility] Address: [address] [place], [place] [address] Performed By: #### 2 4344-4 ####[facility] LABCLIA [id number] [place] [id number] [place] Oxygen saturation in Venous blood 63 % Normal 60-85 [facility] Comment on above: Order Comment: Speci men Type: VENOUS BLOOD SPECIMENOrdering Facility: [facility] Address: [address] [place], [place] [address] Performed By: #### 2 4344-4 ####[facility] LABCLIA [id number] [place] [address] [place] Oxyhemoglobin (BldV) [Mass fraction] 62 % Normal 60-85 [facility] Comment on above: Order Comment: Speci men Type: VENOUS BLOOD SPECIMENOrdering Facility: [facility] Address: [address] [id number] Performed By: #### 2 4344-4 ####[facility] LABCLIA [id number] [address] [address] [place] pH (BldV) 7.38 [pH] Normal 7.32-7.42 [facility] Comment on above: Order Comment: Speci men Type: VENOUS BLOOD SPECIMENOrdering Facility: [facility] Address: [address] [place], [place] [address] Performed By: #### 2 4344-4 ####[facility] LABCLIA [id number] [place] [address] [place] pH adjusted to patient's actual temperature (BldV) 7.39 Normal 7.32-7.42 [facility] Comment on above: Order Comment: Speci men Type: VENOUS BLOOD SPECIMENOrdering Facility: [facility] Address: [address] [place] [address] Performed By: #### 2 4344-4 ####[facility] LABCLIA [id number] [place] [address] [place] Potassium [Moles/Vol] 4.5 mmol/L Normal 3.5-5.0 [facility] Comment on above: Order Comment: Speci men Type: VENOUS BLOOD SPECIMENOrdering Facility: [facility] Address: [address] [place] [address] Performed By: #### 2 4344-4 ####[facility] LABIA [id number] [place] [address] [place] Sodium [Moles/Vol] 131 mmol/L Low 136-144 [facility] Comment on above: Order Comment: Speci men Type: VENOUS BLOOD SPECIMENOrdering Facility: [facility] Address: [address] [place] [address] Performed By: #### 2 4344-4 ####[facility] LABIA [id number] [place] [address] [place] Base excess Calc (BldV) [Moles/Vol] 4 mmol/L High 0-2 [facility] Comment on above: Order Comment: Speci men Type: VENOUS BLOOD SPECIMENOrdering Facility: [facility] Address: [address] [place] [address] Performed By: #### 2 4344-4 ####[facility] LABCLIA [id number] [place] [address] [place] Calcium.ionized adjusted to pH 7.4 (BldA) [Moles/Vol] 1.13 mmol/L Normal 1.08-1.30 [facility] Comment on above: Order Comment: Speci men Type: VENOUS BLOOD SPECIMENOrdering Facility: [facility] Address: [address] [place] [address] Performed By: #### 2 4344-4 ####[facility] LABCLIA [id number] [address] [address] [place] Carboxyhemoglobin (BldV) [Mass fraction] 1.2 % Normal 0.0-2.0 [facility] Comment on above: Order Comment: Speci men Type: VENOUS BLOOD SPECIMENOrdering Facility: [facility] Address: [address] [place] [address] Result Comment: Carb oxyhemoglobin Reference Range for Smokers: 2.0-8.0% Performed By: #### 2 4344-4 ####[facility] LABCLIA [id number] [address] [address] [place] CO2 (BldV) [Partial pressure] 50 mm[Hg] Normal 42-55 [facility] Comment on above: Order Comment: Speci men Type: VENOUS BLOOD SPECIMENOrdering Facility: [facility] Address: [address] [place] [address] Performed By: #### 2 4344-4 ####[facility] LABCLIA [id number] [address] [address] [place] CO2 adjusted to patient's actual temperature (BldV) [Partial pressure] 49 mmHg Normal 42-55 [facility] Comment on above: Order Comment: Speci men Type: VENOUS BLOOD SPECIMENOrdering Facility: [facility] Address: [address] [place], [place] [address] Performed By: #### 2 4344-4 ####[facility] LABCLIA [id number] [facility] [address] [address] [place] Glucose [Mass/Vol] 161 mg/dL High 60-105 [facility] Comment on above: Order Comment: Speci men Type: VENOUS BLOOD SPECIMENOrdering Facility: [facility] Address: [address] [place] [address] Performed By: #### 2 4344-4 ####[facility] LABCLIA [id number] [place] [id number] [place] HCO3 (Bld) [Moles/Vol] 29 mmol/L High 24-[address] [facility] Comment on above: Order Comment: Speci men Type: VENOUS BLOOD SPECIMENOrdering Facility: [facility] Address: [address] [place] [address] Performed By: #### 2 4344-4 ####[facility] LABCLIA [id number] [place] [address] [place] Hematocrit (Bld) [Volume fraction] 28.4 % Low 39.0-51.0 [facility] Comment on above: Order Comment: Speci men Type: VENOUS BLOOD SPECIMENOrdering Facility: [facility] Address: [address] [place] [address] Performed By: #### 2 4344-4 ####[facility] LABCLIA [id number] [place] [address] [place] Hemoglobin (Bld) [Mass/Vol] 9.2 g/dL Low 13.0-17.0 [facility] Comment on above: Order Comment: Speci men Type: VENOUS BLOOD SPECIMENOrdering Facility: [facility] Address: [address] [place] [address] Performed By: #### 2 4344-4 ####[facility] LABCLIA [id number] [place] [id number] [place] Methemoglobin (Bld) [Mass fraction] 1.9 % High 0.0-1.5 [facility] Comment on above: Order Comment: Speci men Type: VENOUS BLOOD SPECIMENOrdering Facility: [facility] Address: [address] [place], [place] [address] Performed By: #### 2 4344-4 ####[facility] LABCLIA [id number] [address] [address] [place] Oxygen (BldV) [Partial pressure] 37 mm[Hg] Normal 35-45 [facility] Comment on above: Order Comment: Speci men Type: VENOUS BLOOD SPECIMENOrdering Facility: [facility] Address: [address] [place], [place] [address] Performed By: #### 2 4344-4 ####[facility] LABCLIA [id number] [address] [address] [place] Oxygen adjusted to patient's actual temperature (BldV) [Partial pressure] 36 mmHg Normal 35-45 [facility] Comment on above: Order Comment: Speci men Type: VENOUS BLOOD SPECIMENOrdering Facility: [facility] Address: [address] [place] [address] Performed By: #### 2 4344-4 ####[facility] LABCLIA [id number] [address] [address] [place] Oxygen saturation in Venous blood 64 % Normal 60-85 [facility] Comment on above: Order Comment: Speci men Type: VENOUS BLOOD SPECIMENOrdering Facility: [facility] Address: [address] [place] [address] Performed By: #### 2 4344-4 ####[facility] LABCLIA [id number] [address] [address] [place] Oxyhemoglobin (BldV) [Mass fraction] 62 % Normal 60-85 [facility] Comment on above: Order Comment: Speci men Type: VENOUS BLOOD SPECIMENOrdering Facility: [facility] Address: [address] [place], [place] [id number] Performed By: #### 2 4344-4 ####[facility] LABCLIA [id number] [address] [address] [place] pH (BldV) 7.38 [pH] Normal 7.32-7.42 [facility] Comment on above: Order Comment: Speci men Type: VENOUS BLOOD SPECIMENOrdering Facility: [facility] [facility] Address: [address] [place] [address] Performed By: #### 2 4344-4 ####[facility] LABCLIA [id number] [place] [address] [place] pH adjusted to patient's actual temperature (BldV) 7.39 Normal 7.32-7.42 [facility] Comment on above: Order Comment: Speci men Type: VENOUS BLOOD SPECIMENOrdering Facility: [facility] Address: [address] [place] [address] Performed By: #### 2 4344-4 ####[facility] LABIA [id number] [place] [address] [place] Sodium [Moles/Vol] 131 mmol/L Low 136-144 [facility] Comment on above: Order Comment: Speci men Type: VENOUS BLOOD SPECIMENOrdering Facility: [facility] Address: [address] [place] [address] Performed By: #### 2 4344-4 ####[facility] LABIA [id number] [place] [address] [place] Base excess Calc (BldV) [Moles/Vol] 3 mmol/L High 0-2 [facility] Comment on above: Order Comment: Speci men Type: VENOUS BLOOD SPECIMENOrdering Facility: [facility] Address: [address] [place] [address] Performed By: #### 2 4344-4 ####[facility] LABIA [id number] [place] [id number] [place] Calcium.ionized (Bld) [Mass/Vol] 1.10 mmol/L Normal 1.08-1.30 [facility] Comment on above: Order Comment: Speci men Type: VENOUS BLOOD SPECIMENOrdering Facility: [facility] Address: [address] [place] [address] Performed By: #### 2 4344-4 ####[facility] LABCLIA [id number] [address] [address] [place] Calcium.ionized adjusted to pH 7.4 (BldA) [Moles/Vol] 1.10 mmol/L Normal 1.08-1.30 [facility] Comment on above: Order Comment: Speci men Type: VENOUS BLOOD SPECIMENOrdering Facility: [facility] Address: [address] [place] [address] Performed By: #### 2 4344-4 ####[facility] LABIA [id number] [place] [address] [place] Carboxyhemoglobin (BldV) [Mass fraction] 1.0 % Normal 0.0-2.0 [facility] Comment on above: Order Comment: Speci men Type: VENOUS BLOOD SPECIMENOrdering Facility: [facility] Address: [address] [place] [address] Result Comment: Carb oxyhemoglobin Reference Range for Smokers: 2.0-8.0% Performed By: #### 2 4344-4 ####[facility] LABIA [id number] [place] [address] [place] CO2 (BldV) [Partial pressure] 48 mm[Hg] Normal 42-55 [facility] Comment on above: Order Comment: Speci men Type: VENOUS BLOOD SPECIMENOrdering Facility: [facility] Address: [address] [place] [address] Performed By: #### 2 4344-4 ####[facility] LABCLIA [id number] [place] [id number] [place] CO2 adjusted to patient's actual temperature (BldV) [Partial pressure] 47 mmHg Normal 42-55 [facility] Comment on above: Order Comment: Speci men Type: VENOUS BLOOD SPECIMENOrdering Facility: [facility] Address: [address] [place] [address] Performed By: #### 2 4344-4 ####[facility] LABCLIA [id number] [address] [address] [place] Glucose [Mass/Vol] 161 mg/dL High 60-105 [facility] Comment on above: Order Comment: Speci men Type: VENOUS BLOOD SPECIMENOrdering Facility: [facility] Address: [address] [place] [address] Performed By: #### 2 4344-4 ####[facility] LABCLIA [id number] [place] [id number] [place] HCO3 (Bld) [Moles/Vol] 28 mmol/L Normal 24-[address] [facility] Comment on above: Order Comment: Speci men Type: VENOUS BLOOD SPECIMENOrdering Facility: [facility] Address: [address] [place] [address] Performed By: #### 2 4344-4 ####[facility] LABCLIA [id number] [place] [address] [place] Hematocrit (Bld) [Volume fraction] 27.8 % Low 39.0-51.0 [facility] Comment on above: Order Comment: Speci men Type: VENOUS BLOOD SPECIMENOrdering Facility: [facility] Address: [address] [place] [address] Performed By: #### 2 4344-4 ####[facility] LABCLIA [id number] [place] [id number] [place] Hemoglobin (Bld) [Mass/Vol] 9.0 g/dL Low 13.0-17.0 [facility] Comment on above: Order Comment: Speci men Type: VENOUS BLOOD SPECIMENOrdering Facility: [facility] Address: [address] [place] [address] Performed By: #### 2 4344-4 ####[facility] LABCLIA [id number] [address] [address] [place] Methemoglobin (Bld) [Mass fraction] 1.3 % Normal 0.0-1.5 [facility] Comment on above: Order Comment: Speci men Type: VENOUS BLOOD SPECIMENOrdering Facility: [facility] Address: [address] [place] [address] Performed By: #### 2 4344-4 ####[facility] LABCLIA [id number] [address] [address] [place] Oxygen (BldV) [Partial pressure] 35 mm[Hg] Normal 35-45 [facility] Comment on above: Order Comment: Speci men Type: VENOUS BLOOD SPECIMENOrdering Facility: [facility] Address: [address] [place], [place] [address] Performed By: #### 2 4344-4 ####[facility] LABCLIA [id number] [address] [address] [place] Oxygen adjusted to patient's actual temperature (BldV) [Partial pressure] 34 mmHg Low 35-45 [facility] Comment on above: Order Comment: Speci men Type: VENOUS BLOOD SPECIMENOrdering Facility: [facility] Address: [address] [place], [place] [address] Performed By: #### 2 4344-4 ####[facility] LABCLIA [id number] [address] [address] [place] Oxygen saturation in Venous blood 59 % Low 60-85 [facility] Comment on above: Order Comment: Speci men Type: VENOUS BLOOD SPECIMENOrdering Facility: [facility] Address: [address] [place] [address] Performed By: #### 2 4344-4 ####[facility] LABCLIA [id number] [address] [address] [place] Oxyhemoglobin (BldV) [Mass fraction] 58 % Low 60-85 [facility] Comment on above: Order Comment: Speci men Type: VENOUS BLOOD SPECIMENOrdering Facility: [facility] Address: [address] [place] [address] Performed By: #### 2 4344-4 ####[facility] LABCLIA [id number] [address] [address] [place] pH (BldV) 7.39 [pH] Normal 7.32-7.42 [facility] Comment on above: Order Comment: Speci men Type: VENOUS BLOOD SPECIMENOrdering Facility: [facility] Address: [address] [place] [address] Performed By: #### 2 4344-4 ####[facility] LABIA [id number] [place] [address] [place] pH adjusted to patient's actual temperature (BldV) 7.39 Normal 7.32-7.42 [facility] Comment on above: Order Comment: Speci men Type: VENOUS BLOOD SPECIMENOrdering Facility: [facility] Address: [address] [place] [address] Performed By: #### 2 4344-4 ####[facility] LABIA [id number] [place] [address] [place] Potassium [Moles/Vol] 4.3 mmol/L Normal 3.5-5.0 [facility] Comment on above: Order Comment: Speci men Type: VENOUS BLOOD SPECIMENOrdering Facility: [facility] Address: [address] [place] [address] Performed By: #### 2 4344-4 ####[facility] LABIA [id number] [place] [id number] [place] Sodium [Moles/Vol] 131 mmol/L Low 136-144 [facility] Comment on above: Order Comment: Speci men Type: VENOUS BLOOD SPECIMENOrdering Facility: [facility] Address: [address] [place] [address] Performed By: #### 2 4344-4 ####[facility] LABIA [id number] [place] [id number] [place] Base excess Calc (BldV) [Moles/Vol] 2 mmol/L Normal 0-2 [facility] Comment on above: Order Comment: Speci men Type: VENOUS BLOOD SPECIMENOrdering Facility: [facility] Address: [address] [place] [address] Performed By: #### 2 4344-4 ####[facility] LABCLIA [id number] [place] [address] [place] Calcium.ionized (Bld) [Mass/Vol] 1.11 mmol/L Normal 1.08-1.30 [facility] Comment on above: Order Comment: Speci men Type: VENOUS BLOOD SPECIMENOrdering Facility: [facility] Address: [address] [place] [address] Performed By: #### 2 4344-4 ####[facility] LABCLIA [id number] [place] [address] [place] Calcium.ionized adjusted to pH 7.4 (BldA) [Moles/Vol] 1.07 mmol/L Low 1.08-1.30 [facility] Comment on above: Order Comment: Speci men Type: VENOUS BLOOD SPECIMENOrdering Facility: [facility] Address: [address] [place] [address] Performed By: #### 2 4344-4 ####[facility] LABIA [id number] [place] [address] [place] Carboxyhemoglobin (BldV) [Mass fraction] 1.1 % Normal 0.0-2.0 [facility] Comment on above: Order Comment: Speci men Type: VENOUS BLOOD SPECIMENOrdering Facility: [facility] Address: [address] [place] [address] Result Comment: Carb oxyhemoglobin Reference Range for Smokers: 2.0-8.0% Performed By: #### 2 4344-4 ####[facility] LABCLIA [id number] [place] [address] [place] CO2 (BldV) [Partial pressure] 51 mm[Hg] Normal 42-55 [facility] Comment on above: Order Comment: Speci men Type: VENOUS BLOOD SPECIMENOrdering Facility: [facility] Address: [address] [place] [address] Performed By: #### 2 4344-4 ####[facility] LABCLIA [id number] [address] [address] [place] Glucose [Mass/Vol] 176 mg/dL High 60-105 [facility] Comment on above: Order Comment: Speci men Type: VENOUS BLOOD SPECIMENOrdering Facility: [facility] Address: [address] [place] [address] Performed By: #### 2 4344-4 ####[facility] LABIA [id number] [place] [id number] [place] HCO3 (Bld) [Moles/Vol] 27 mmol/L Normal 24-[address] [facility] Comment on above: Order Comment: Speci men Type: VENOUS BLOOD SPECIMENOrdering Facility: [facility] Address: [address] [place] [address] Performed By: #### 2 4344-4 ####[facility] LABIA [id number] [place] [address] [place] Hematocrit (Bld) [Volume fraction] 27.4 % Low 39.0-51.0 [facility] Comment on above: Order Comment: Speci men Type: VENOUS BLOOD SPECIMENOrdering Facility: [facility] Address: [address] [place] [address] Performed By: #### 2 4344-4 ####[facility] LABIA [id number] [place] [id number] [place] Hemoglobin (Bld) [Mass/Vol] 8.8 g/dL Low 13.0-17.0 [facility] Comment on above: Order Comment: Speci men Type: VENOUS BLOOD SPECIMENOrdering Facility: [facility] Address: [address] [place] [address] Performed By: #### 2 4344-4 ####[facility] LABCLIA [id number] [address] [place] [address] [place] Methemoglobin (Bld) [Mass fraction] 1.5 % Normal 0.0-1.5 [facility] Comment on above: Order Comment: Speci men Type: VENOUS BLOOD SPECIMENOrdering Facility: [facility] Address: [address] [place] [address] Performed By: #### 2 4344-4 ####[facility] LABCLIA [id number] [place] [id number] [place] Oxygen (BldV) [Partial pressure] 41 mm[Hg] Normal 35-45 [facility] Comment on above: Order Comment: Speci men Type: VENOUS BLOOD SPECIMENOrdering Facility: [facility] Address: [address] [place] [address] Performed By: #### 2 4344-4 ####[facility] LABIA [id number] [address], [facility] [place] Oxygen saturation in Venous blood 68 % Normal 60-85 [facility] Comment on above: Order Comment: Speci men Type: VENOUS BLOOD SPECIMENOrdering Facility: [facility] Address: [address] [place] [address] Performed By: #### 2 4344-4 ####[facility] LABIA [id number] [place] [id number] [place] Oxyhemoglobin (BldV) [Mass fraction] 66 % Normal 60-85 [facility] Comment on above: Order Comment: Speci men Type: VENOUS BLOOD SPECIMENOrdering Facility: [facility] Address: [address] [place], [place] [address] Performed By: #### 2 4344-4 ####[facility] LABIA [id number] [address] [place] [address] [place] pH (BldV) 7.35 [pH] Normal 7.32-7.42 [facility] Comment on above: Order Comment: Speci men Type: VENOUS BLOOD SPECIMENOrdering Facility: [facility] Address: [address] [place] [address] Performed By: #### 2 4344-4 ####[facility] LABIA [id number] [place] [address] [place] Potassium [Moles/Vol] 4.3 mmol/L Normal 3.5-5.0 [facility] Comment on above: Order Comment: Speci men Type: VENOUS BLOOD SPECIMENOrdering Facility: [facility] Address: [address] [place] [address] Performed By: #### 2 4344-4 ####[facility] LABIA [id number] [place] [address] [place] Haptoglob SerPl-mCncon 10-20 Haptoglobin [Mass/Vol] 55 mg/dL Normal 31-[address] [facility] Comment on above: Order Comment: Speci men Type: BLOOD SPECIMENOrdering Facility: [facility] Address: [address] [place] [address] Performed By: #### 2 777-1, 71335-6, 4542-7, 27479-3 ####[facility] LABIA [id number] [place] [address] [place] LDH SerPl-cCncon 10-20-2024 LDH [Catalytic activity/Vol] 357 U/L High 135-225 [facility] Comment on above: Order Comment: Speci men Type: BLOOD SPECIMENOrdering Facility: [facility] Address: [address] [place] [address] Performed By: #### 2 532-0 ####[facility] LABIA [id number] [place] [id number] [place] Magnesium SerPl-mCncon 10-20 Magnesium [Mass/Vol] 2.0 mg/dL Normal 1.7-2.3 [facility] Comment on above: Order Comment: [place]ini now[place] Type: BLOOD SPECIMENOrdering Facility: [facility] Address: [address] [place] [address] Result Comment: Resu lt rechecked. Performed By: #### 2 777-1, 28403-0, 4542-7, 25369-5 ####[facility] LABIA [id number] [place] [address] [place] NM CARDIAC AMYLOID SPECT/wood veneer taper n 10-20-2024 NM CARDIAC AMYLOID SPECT/CT Normal [facility] PT panel Coag (PPP)on 2024 INR Coag (PPP) [Relative time] 1.4 {INR} High 0.9-1.3 [facility] Comment on above: Order Comment: Gini nowak Type: BLOOD SPECIMENOrdering Facility: [facility] Address: [address] [place] [address] Result Comment: Nettie min K Antagonist (VKA) Therapeutic Range: INR 2 to 3 (Target INR of 2.5)Note: For patients treated with VKA drugs, such as warfarin, the [employer] [employer] 2012 Guideline recommends a therapeutic INR range of 2 to 3 (target INR of 2.5). This recommendation includes high-risk patients with antiphospholipid syndrome with previous arterial or venous thromboembolism, current-generation mechanical or bioprosthetic aortic heart valve replacement.Note: Patients with mechanical aortic valve replacement and additional risk factors for thromboembolic events (atrial fibrillation, previous thromboembolism, LV dysfunction, hypercoagulable conditions) or an older generation mechanical AVR (i.e., ball in-Cage) or any mechanical MVR should have a INR therapeutic range of 2.5 to 3.5 (target INR of 3).Cecile GH, et al. Chest 2012, 141:7S-47SNishimura RA, et al. JACC 2017, 70: 252-289 Performed By: #### 3 4528-0, 3217-7 ####[facility] LABCLIA [id number] [place] [address] [place] PT Coag (PPP) [Time] 14.4 s High 9.7-13.0 [facility] Comment on above: Order Comment: Speci men Type: BLOOD SPECIMENOrdering Facility: [facility] Address: [address] [place] [address] Performed By: #### 3 4528-0, 3217-7 ####[facility] LABCLIA [id number] [place] [address] [place] Phosphate SerPl-mCncon 10-20 Phosphate [Mass/Vol] 3.2 mg/dL Normal 2.7-4.8 [facility] Comment on above: Order Comment: Speci men Type: BLOOD SPECIMENOrdering Facility: [facility] Address: [address] [place] [address] Performed By: #### 2 777-1, 28829-8, 4542-7, 97261-0 ####[facility] LABCLIA [id number] [place] [address] [place] THERAPY NTon 10-20-2024 THERAPY NT Normal [facility] US CAROTID ARTERIES KIAH VAS LABon 10-20-2024 US CAROTID ARTERIES KIAH VAS LAB Normal [facility] US CHEST EFFUSION SURVEYon 0 10-20-2024 US CHEST EFFUSION SURVEY Normal [facility] XR CHEST 1V FRONTAL PORTon 0 10-20-2024 XR CHEST 1V FRONTAL PORT Normal [facility] ARTERIAL BLOOD GASESon 10-19 Base excess Calc (Bld) [Moles/Vol] 1 mmol/L Normal 0-2 [facility] Comment on above: Order Comment: Speci men Type: ARTERIAL BLOOD SPECIMENOrdering Facility: [facility] Address: [address] [place] [address] Performed By: #### A LLBG ####[facility] LABCLIA [id number] [place] [address] [place] Body temperature 98.96 [degF] Normal [facility] Comment on above: Order Comment: Speci men Type: ARTERIAL BLOOD SPECIMENOrdering Facility: [facility] Address: [address] [place] [address] Performed By: #### A LLBG ####[facility] LABCLIA [id number] [place] [address] [place] Order Comment: Speci men Type: VENOUS BLOOD SPECIMENOrdering Facility: [facility] Address: [address] [place] [address] Performed By: #### 2 4344-4 ####[facility] LABIA [id number] [place] [address] [place] Calcium.ionized (Bld) [Mass/Vol] 1.11 mmol/L Normal 1.08-1.30 [facility] Comment on above: Order Comment: Speci men Type: ARTERIAL BLOOD SPECIMENOrdering Facility: [facility] Address: [address] [place] [address] Performed By: #### A LLBG ####[facility] LABIA [id number] [place] [address] [place] Order Comment: Speci men Type: VENOUS BLOOD SPECIMENOrdering Facility: [facility] Address: [address] [place] [address] Performed By: #### 2 4344-4 ####[facility] LABIA [id number] [place] [address] [place] Calcium.ionized adjusted to pH 7.4 (BldA) [Moles/Vol] 1.13 mmol/L Normal 1.08-1.30 [facility] Comment on above: Order Comment: Speci men Type: ARTERIAL BLOOD SPECIMENOrdering Facility: [facility] Address: [address] [place] [address] Performed By: #### A LLBG ####[facility] LABIA [id number] [place] [id number] [place] Carboxyhemoglobin (BldA) [Mass fraction] 1.6 % Normal 0.0-2.0 [facility] Comment on above: Order Comment: Speci men Type: ARTERIAL BLOOD SPECIMENOrdering Facility: [facility] Address: [address] [place] [address] Result Comment: Carb oxyhemoglobin Reference Range for Smokers: 2.0-8.0% Performed By: #### A LLBG ####[facility] LABCLIA [id number] [place] [id number] [place] CO2 (Bld) [Partial pressure] 37 mm Hg Normal 36-46 [facility] Comment on above: Order Comment: Speci men Type: ARTERIAL BLOOD SPECIMENOrdering Facility: [facility] Address: [address] [place] [address] Performed By: #### A LLBG ####[facility] LABCLIA [id number] [place] [id number] [place] CO2 adjusted to patient's actual temperature (Bld) [Partial pressure] 38 mmHg Normal 36-46 [facility] Comment on above: Order Comment: Speci men Type: ARTERIAL BLOOD SPECIMENOrdering Facility: [facility] Address: [address] [place] [address] Performed By: #### A LLBG ####[facility] LABCLIA [id number] [place] [id number] [place] Glucose [Mass/Vol] 262 mg/dL High 60-105 [facility] Comment on above: Order Comment: Speci men Type: ARTERIAL BLOOD SPECIMENOrdering Facility: [facility] Address: [address] [place] [address] Performed By: #### A LLBG ####[facility] LABIA [id number] [place] [id number] [place] HCO3 (Bld) [Moles/Vol] 24 mmol/L Normal 22-[address] [facility] Comment on above: Order Comment: Speci men Type: ARTERIAL BLOOD SPECIMENOrdering Facility: [facility] Address: [address] [place] [address] Performed By: #### A LLBG ####[facility] LABCLIA [id number] [place] [address] [place] Hematocrit (Bld) [Volume fraction] 28.3 % Low 39.0-51.0 [facility] Comment on above: Order Comment: Speci men Type: ARTERIAL BLOOD SPECIMENOrdering Facility: [facility] Address: [address] [place] [address] Performed By: #### A LLBG ####[facility] LABCLIA [id number] [place] [address] [place] Hemoglobin (Bld) [Mass/Vol] 9.1 g/dL Low 13.0-17.0 [facility] Comment on above: Order Comment: Speci men Type: ARTERIAL BLOOD SPECIMENOrdering Facility: [facility] Address: [address] [place] [address] Performed By: #### A LLBG ####[facility] LABCLIA [id number] [place] [address] [place] Lactate [Moles/Vol] 2.0 mmol/L Normal 0.5-2.2 [facility] Comment on above: Order Comment: Speci men Type: ARTERIAL BLOOD SPECIMENOrdering Facility: [facility] Address: [address] [place] [address] Performed By: #### A LLBG ####[facility] LABCLIA [id number] [place] [address] [place] LITERS 2 Liters/min Normal [facility] Comment on above: Order Comment: Speci men Type: ARTERIAL BLOOD SPECIMENOrdering Facility: [facility] Address: [address] [place] [address] Performed By: #### A LLBG ####[facility] LABCLIA [id number] [place] [id number] [place] Order Comment: Speci men Type: VENOUS BLOOD SPECIMENOrdering Facility: [facility] Address: [address] [place], [place] [address] Performed By: #### 2 4344-4 ####[facility] LABCLIA [id number] [address] [place] [address] [place] Methemoglobin (Bld) [Mass fraction] 1.6 % High 0.0-1.5 [facility] Comment on above: Order Comment: Speci men Type: ARTERIAL BLOOD SPECIMENOrdering Facility: [facility] Address: [address] [place], [place] [address] Performed By: #### A LLBG ####[facility] LABCLIA [id number] [address] [place] [address] [place] O2 THERAPY NC = Nasal Cannula Normal [facility] Comment on above: Order Comment: Speci men Type: ARTERIAL BLOOD SPECIMENOrdering Facility: [facility] Address: [address] [place] [address] Performed By: #### A LLBG ####[facility] LABCLIA [id number] [address] [place] [address] [place] Order Comment: Speci men Type: VENOUS BLOOD SPECIMENOrdering Facility: [facility] Address: [address] [place], [place] [id number] Performed By: #### 2 4344-4 ####[facility] LABCLIA [id number] [address] [place] [address] [place] Oxygen (Bld) [Partial pressure] 129 mm Hg High 85-95 [facility] Comment on above: Order Comment: Speci men Type: ARTERIAL BLOOD SPECIMENOrdering Facility: ST. [facility] Address: [address] [place], [place] [address] Performed By: #### A LLBG ####[facility] LABCLIA [id number] [address] [place] [address] [place] Oxygen adjusted to patient's actual temperature (Bld) [Partial pressure] 130 mmHg High 85-95 [facility] Comment on above: Order Comment: Speci men Type: ARTERIAL BLOOD SPECIMENOrdering Facility: [facility] Address: [address] [place] [address] Performed By: #### A LLBG ####[facility] LABCLIA [id number] [address] [address] [place] Oxyhemoglobin (BldA) [Mass fraction] 96 % Normal 95-98 [facility] Comment on above: Order Comment: Speci men Type: ARTERIAL BLOOD SPECIMENOrdering Facility: [facility] Address: [address] [place] [address] Performed By: #### A LLBG ####[facility] LABCLIA [id number] [place] [id number] [place] pH (Bld) 7.43 [pH] Normal 7.35-7.45 [facility] Comment on above: Order Comment: Speci men Type: ARTERIAL BLOOD SPECIMENOrdering Facility: [facility] Address: [address] [place] [address] Performed By: #### A LLBG ####[facility] LABCLIA [id number] [place] [address] [place] pH adjusted to patient's actual temperature (Bld) 7.43 Normal 7.35-7.45 [facility] Comment on above: Order Comment: Speci men Type: ARTERIAL BLOOD SPECIMENOrdering Facility: [facility] Address: [address] [place] [address] Performed By: #### A LLBG ####[facility] LABCLIA [id number] [place] [id number] [place] Potassium [Moles/Vol] 4.6 mmol/L Normal 3.5-5.0 [facility] Comment on above: Order Comment: Speci men Type: ARTERIAL BLOOD SPECIMENOrdering Facility: [facility] Address: [address] [place] [address] Performed By: #### A LLBG ####[facility] LABCLIA [id number] [place] [id number] [place] Sodium [Moles/Vol] 131 mmol/L Low 136-144 [facility] Comment on above: Order Comment: Speci men Type: ARTERIAL BLOOD SPECIMENOrdering Facility: [facility] Address: [address] [place] [address] Performed By: #### A LLBG ####[facility] LABCLIA [id number] [place] [address] [place] Base excess Calc (Bld) [Moles/Vol] 2 mmol/L Normal 0-2 [facility] Comment on above: Order Comment: Speci men Type: ARTERIAL BLOOD SPECIMENOrdering Facility: [facility] Address: [address] [place] [address] Performed By: #### A LLBG ####[facility] LABCLIA [id number] [place] [address] [place] Body temperature 97.16 [degF] Normal [facility] Comment on above: Order Comment: Speci men Type: ARTERIAL BLOOD SPECIMENOrdering Facility: [facility] Address: [address] [place] [address] Performed By: #### A LLBG ####[facility] LABCLIA [id number] [place] [address] [place] Order Comment: Speci men Type: VENOUS BLOOD SPECIMENOrdering Facility: [facility] Address: [address] [place] [address] Performed By: #### 2 4344-4 ####[facility] LABCLIA [id number] [place] [address] [place] Calcium.ionized (Bld) [Mass/Vol] 1.15 mmol/L Normal 1.08-1.30 [facility] Comment on above: Order Comment: Speci men Type: ARTERIAL BLOOD SPECIMENOrdering Facility: [facility] Address: [address] [place] [address] Performed By: #### A LLBG ####[facility] LABCLIA [id number] [place] [address] [place] Calcium.ionized adjusted to pH 7.4 (BldA) [Moles/Vol] 1.14 mmol/L Normal 1.08-1.30 [facility] Comment on above: Order Comment: Speci men Type: ARTERIAL BLOOD SPECIMENOrdering Facility: [facility] Address: [address] [place] [address] Performed By: #### A LLBG ####[facility] LABCLIA [id number] [place] [address] [place] Order Comment: Speci men Type: VENOUS BLOOD SPECIMENOrdering Facility: [facility] Address: [address] [place] [address] Performed By: #### 2 4344-4 ####[facility] LABIA [id number] [place] [address] [place] Carboxyhemoglobin (BldA) [Mass fraction] 1.5 % Normal 0.0-2.0 [facility] Comment on above: Order Comment: Speci men Type: ARTERIAL BLOOD SPECIMENOrdering Facility: [facility] Address: [address] [place] [address] Result Comment: Carb oxyhemoglobin Reference Range for Smokers: 2.0-8.0% Performed By: #### A LLBG ####[facility] LABCLIA [id number] [place] [address] [place] CO2 (Bld) [Partial pressure] 46 mm Hg Normal 36-46 [facility] Comment on above: Order Comment: Speci men Type: ARTERIAL BLOOD SPECIMENOrdering Facility: [facility] Address: [address] [place] [address] Performed By: #### A LLBG ####[facility] LABCLIA [id number] [place] [address] [place] CO2 adjusted to patient's actual temperature (Bld) [Partial pressure] 44 mmHg Normal 36-46 [facility] Comment on above: Order Comment: Speci men Type: ARTERIAL BLOOD SPECIMENOrdering Facility: [facility] Address: [address] [place] [address] Performed By: #### A LLBG ####[facility] LABCLIA [id number] [place] [address] [place] Glucose [Mass/Vol] 121 mg/dL High 60-105 [facility] Comment on above: Order Comment: Speci men Type: ARTERIAL BLOOD SPECIMENOrdering Facility: [facility] Address: [address] [place] [address] Performed By: #### A LLBG ####[facility] LABCLIA [id number] [place] [id number] [place] HCO3 (Bld) [Moles/Vol] 26 mmol/L Normal 22-[address] [facility] Comment on above: Order Comment: Speci men Type: ARTERIAL BLOOD SPECIMENOrdering Facility: [facility] Address: [address] [place] [address] Performed By: #### A LLBG ####[facility] LABCLIA [id number] [address] [place] Hematocrit (Bld) [Volume fraction] 27.9 % Low 39.0-51.0 [facility] Comment on above: Order Comment: Speci men Type: ARTERIAL BLOOD SPECIMENOrdering Facility: [facility] Address: [address] [place] [address] Performed By: #### A LLBG ####[facility] LABCLIA [id number] [place] [id number] [place] Hemoglobin (Bld) [Mass/Vol] 9.0 g/dL Low 13.0-17.0 [facility] Comment on above: Order Comment: Speci men Type: ARTERIAL BLOOD SPECIMENOrdering Facility: [facility] Address: [address] [place] [address] Performed By: #### A LLBG ####[facility] LABCLIA [id number] [place] [address] [place] Lactate [Moles/Vol] 0.6 mmol/L Normal 0.5-2.2 [facility] Comment on above: Order Comment: Speci men Type: ARTERIAL BLOOD SPECIMENOrdering Facility: [facility] Address: [address] [place] [address] Performed By: #### A LLBG ####[facility] LABCLIA [id number] [place] [address] [place] Order Comment: Speci men Type: VENOUS BLOOD SPECIMENOrdering Facility: [facility] Address: [address] [place] [address] Performed By: #### 2 4344-4 ####[facility] LABCLIA [id number] [place] [address] [place] LITERS 2 Liters/min Normal [facility] Comment on above: Order Comment: Speci men Type: ARTERIAL BLOOD SPECIMENOrdering Facility: [facility] Address: [address] [place] [address] Performed By: #### A LLBG ####[facility] LABCLIA [id number] [place] [address] [place] Order Comment: Speci men Type: VENOUS BLOOD SPECIMENOrdering Facility: [facility] Address: [address] [place] [address] Performed By: #### 2 4344-4 ####[facility] LABCLIA [id number] [place] [id number] [place] Methemoglobin (Bld) [Mass fraction] 1.4 % Normal 0.0-1.5 [facility] Comment on above: Order Comment: Speci men Type: ARTERIAL BLOOD SPECIMENOrdering Facility: [facility] Address: [address] [place] [address] Performed By: #### A LLBG ####[facility] LABCLIA [id number] [address] [place] [address] [place] O2 THERAPY NC = Nasal Cannula Normal [facility] Comment on above: Order Comment: Speci men Type: ARTERIAL BLOOD SPECIMENOrdering Facility: [facility] Address: [address] [place] [id number] Performed By: #### A LLBG ####[facility] LABCLIA [id number] [address] [place] [address] [place] Order Comment: Speci men Type: VENOUS BLOOD SPECIMENOrdering Facility: [facility] Address: [address] [place] [id number] Performed By: #### 2 4344-4 ####[facility] LABCLIA [id number] [address] [address] [place] Oxygen (Bld) [Partial pressure] 84 mm Hg Low 85-95 [facility] Comment on above: Order Comment: Speci men Type: ARTERIAL BLOOD SPECIMENOrdering Facility: [facility] Address: [address] [place] [address] Performed By: #### A LLBG ####[facility] LABCLIA [id number] [address] [place] [address] [place] Oxygen adjusted to patient's actual temperature (Bld) [Partial pressure] 80 mmHg Low 85-95 [facility] Comment on above: Order Comment: Speci men Type: ARTERIAL BLOOD SPECIMENOrdering Facility: [facility] Address: [address] [place] [address] Performed By: #### A LLBG ####[facility] LABCLIA [id number] [address] [address] [place] Oxyhemoglobin (BldA) [Mass fraction] 93 % Low 95-98 [facility] Comment on above: Order Comment: Speci men Type: ARTERIAL BLOOD SPECIMENOrdering Facility: [facility] Address: [address] [place] [address] Performed By: #### A LLBG ####[facility] LABCLIA [id number] [place] [address] [place] pH (Bld) 7.38 [pH] Normal 7.35-7.45 [facility] Comment on above: Order Comment: Speci men Type: ARTERIAL BLOOD SPECIMENOrdering Facility: [facility] Address: [address] [place] [address] Performed By: #### A LLBG ####[facility] LABIA [id number] [place] [address] [place] pH adjusted to patient's actual temperature (Bld) 7.39 Normal 7.35-7.45 [facility] Comment on above: Order Comment: Speci men Type: ARTERIAL BLOOD SPECIMENOrdering Facility: [facility] Address: [address] [place] [address] Performed By: #### A LLBG ####[facility] LABIA [id number] [place] [address] [place] Potassium [Moles/Vol] 3.8 mmol/L Normal 3.5-5.0 [facility] Comment on above: Order Comment: Speci men Type: ARTERIAL BLOOD SPECIMENOrdering Facility: [facility] Address: [address] [place] [address] Performed By: #### A LLBG ####[facility] LABCLIA [id number] [place] [id number] [place] Sodium [Moles/Vol] 133 mmol/L Low 136-144 [facility] Comment on above: Order Comment: Speci men Type: ARTERIAL BLOOD SPECIMENOrdering Facility: [facility] Address: [address] [place] [address] Performed By: #### A LLBG ####[facility] LABCLIA [id number] [address] [place] CBC panel Auto (Bld)on 10-19 Erythrocyte distribution width (RBC) [Ratio] 17.2 % High 11.5-15.0 [facility] Comment on above: Order Comment: Speci men Type: BLOOD SPECIMENOrdering Facility: [facility] Address: [address] [place] [address] Performed By: #### 5 8410-2 ####[facility] LABIA [id number] [address] [place] Hematocrit (Bld) [Volume fraction] 28.0 % Low 39.0-51.0 [facility] Comment on above: Order Comment: Speci men Type: BLOOD SPECIMENOrdering Facility: [facility] Address: [address] [place] [address] Performed By: #### 5 8410-2 ####[facility] LABIA [id number] [address] Hemoglobin (Bld) [Mass/Vol] 8.8 g/dL Low 13.0-17.0 [facility] Comment on above: Order Comment: Speci men Type: BLOOD SPECIMENOrdering Facility: [facility] Address: [address] [place] [address] Performed By: #### 5 8410-2 ####[facility] LABIA [id number] [place] [address] [place] MCH (RBC) [Entitic mass] 32.0 pg Normal 26.0-34.0 [facility] Comment on above: Order Comment: Speci men Type: BLOOD SPECIMENOrdering Facility: [facility] Address: [address] [place] [address] Performed By: #### 5 8410-2 ####[facility] LABCLIA [id number] [place] [id number] [place] MCHC (RBC) [Mass/Vol] 31.4 g/dL Normal 30.5-36.0 [facility] Comment on above: Order Comment: Speci men Type: BLOOD SPECIMENOrdering Facility: [facility] Address: [address] [place] [address] Performed By: #### 5 8410-2 ####[facility] LABIA [id number] [address] [address] [place] MCV (RBC) [Entitic vol] 101.8 fL High 80.0-100.0 [facility] Comment on above: Order Comment: Speci men Type: BLOOD SPECIMENOrdering Facility: [facility] Address: [address] [place] [address] Performed By: #### 5 8410-2 ####[facility] LABIA [id number] [place] [address] [place] Nucleated RBC (Bld) [#/Vol] 10*3/uL Normal <0.01 [facility] Comment on above: Order Comment: Speci men Type: BLOOD SPECIMENOrdering Facility: [facility] Address: [address] [place] [address] Performed By: #### 5 8410-2 ####[facility] [id number] [place] [address] [place] Platelet mean volume (Bld) [Entitic vol] 12.3 fL Normal 9.0-12.7 [facility] Comment on above: Order Comment: Speci men Type: BLOOD SPECIMENOrdering Facility: [facility] Address: [address] [place] [address] Performed By: #### 5 8410-2 ####[facility] LABIA [id number] [place] [address] [place] Platelets (Bld) [#/Vol] 118 10*3/uL Low 150-400 [facility] Comment on above: Order Comment: Speci men Type: BLOOD SPECIMENOrdering Facility: [facility] Address: [address] [place] [address] Performed By: #### 5 8410-2 ####[facility] LABCLIA [id number] [place] [id number] [place] RBC (Bld) [#/Vol] 2.75 10*6/uL Low 4.20-6.00 [facility] Comment on above: Order Comment: Speci men Type: BLOOD SPECIMENOrdering Facility: [facility] Address: [address] [place] [address] Performed By: #### 5 8410-2 ####[facility] LABIA [id number] [place] [address] [place] WBC (Bld) [#/Vol] 5.03 10*3/uL Normal 3.70-11.00 [facility] Comment on above: Order Comment: Speci men Type: BLOOD SPECIMENOrdering Facility: [facility] Address: [address] [place] [address] Performed By: #### 5 8410-2 ####[facility] [id number] [place] [id number] [place] CONSULTon 10-19-2024 CONSULT Normal [facility] CONSULT Normal [facility] Comprehensive metabolic 2000 panelon 10-19-2024 Albumin [Mass/Vol] 2.6 g/dL Low 3.9-4.9 [facility] Comment on above: Order Comment: Speci men Type: BLOOD SPECIMENOrdering Facility: [facility] Address: [address] [place] [address] Performed By: #### 2 4323-8, 46372-2, 2777-1 ####[facility] LABIA [id number] [place] [id number] [place] ALP [Catalytic activity/Vol] 102 U/L Normal 38-113 [facility] Comment on above: Order Comment: Speci men Type: BLOOD SPECIMENOrdering Facility: [facility] Address: [address] [place] [address] Performed By: #### 2 4323-8, 37988-4, 2776-02 ####[facility] LABCLIA [id number] [address] [address] [place] ALT [Catalytic activity/Vol] 12 U/L Normal 10-54 [facility] Comment on above: Order Comment: Speci men Type: BLOOD SPECIMENOrdering Facility: [facility] Address: [address] [place] [address] Performed By: #### 2 4323-8, , 2776-02 ####[facility] LABCLIA [id number] [place] [id number] [place] Anion gap [Moles/Vol] 11 mmol/L Normal 8-15 [facility] Comment on above: Order Comment: Speci men Type: BLOOD SPECIMENOrdering Facility: [facility] Address: [address] [place] [address] Performed By: #### 2 4323-8, , 2776-02 ####[facility] LABCLIA [id number] [place] [id number] [place] AST [Catalytic activity/Vol] 19 U/L Normal 14-40 [facility] Comment on above: Order Comment: Speci men Type: BLOOD SPECIMENOrdering Facility: [facility] Address: [address] [place], [place] [address] Performed By: #### 2 4323-8, , 2776-02 ####[facility] LABCLIA [id number] [address] [address] [place] Bilirubin [Mass/Vol] 0.2 mg/dL Normal 0.2-1.3 [facility] Comment on above: Order Comment: Speci men Type: BLOOD SPECIMENOrdering Facility: [facility] Address: [address] [place], [place] [address] Performed By: #### 2 4323-8, , 2776-02 ####[facility] LABCLIA [id number] [address] [address] [place] Calcium [Mass/Vol] 8.0 mg/dL Low 8.5-10.2 [facility] Comment on above: Order Comment: Speci men Type: BLOOD SPECIMENOrdering Facility: [facility] Address: [address] [place], [place] [address] Performed By: #### 2 4323-8, , 2776-02 ####[facility] LABCLIA [id number] [address] [address] [place] Chloride [Moles/Vol] 102 mmol/L Normal 98-107 [facility] Comment on above: Order Comment: Speci men Type: BLOOD SPECIMENOrdering Facility: [facility] Address: [address] [place], [place] [address] Performed By: #### 2 4323-8, , 2776-02 ####[facility] LABCLIA [id number] [address] [address] [place] CO2 [Moles/Vol] 23 mmol/L Normal 22-30 [facility] Comment on above: Order Comment: Speci men Type: BLOOD SPECIMENOrdering Facility: [facility] Address: [address] [place] [address] Performed By: #### 2 4323-8, , 2776-02 ####[facility] LABCLIA [id number] [facility] [address] [address] [place] Creatinine [Mass/Vol] 1.75 mg/dL High 0.73-1.22 [facility] Comment on above: Order Comment: Speci men Type: BLOOD SPECIMENOrdering Facility: [facility] Address: [address] [place] [address] Performed By: #### 2 4323-8, , 2776-02 ####[facility] LABCLIA [id number] [address] [address] [place] eGFRcr SerPlBld CKD-EPI 2020 43 mL/min/1.73m??? Low >=60 [facility] Comment on above: Order Comment: Gini nowak Type: BLOOD SPECIMENOrdering Facility: [facility] Address: [address] [place] [address] Result Comment: Gurwinder mated Glomerular Filtration Rate [...] actual GFR. Performed By: #### 2 4323-8, 79365-0, 2777- ####[facility] LABCLIA [id number] [place] [id number] [place] Glucose [Mass/Vol] 208 mg/dL High 74-99 [facility] Comment on above: Order Comment: Gini nowak Type: BLOOD SPECIMENOrdering Facility: [facility] Address: [address] [place] [address] Result Comment: The [place] [employer] (ADA) provides guidance for cutoff values for fasting glucose and random glucose. The ADA defines fasting as no caloric intake for at least 8 hours. Fasting plasma glucose results between 100 to 125 mg/dL indicate increased risk for diabetes (prediabetes).Fasting plasma glucose results greater than or equal to 126 mg/dL meet the criteria for diagnosis of diabetes. In the absence of unequivocal hyperglycemia, results should be confirmed by repeat testing. In a patient with classic symptoms of hyperglycemia or hyperglycemic crisis, random plasma glucose results greater than or equal to 200 mg/dL meet the criteria for diagnosis of diabetes.Reference: Standards of Medical Care in Diabetes 2016, [place] [employer]. Diabetes Care. 2016.39(Suppl 1). Performed By: #### 2 4323-8, 83365-8, 2777-1 ####[facility] LABCLIA [id number] [address] [address] [place] Potassium [Moles/Vol] 4.1 mmol/L Normal 3.7-5.1 [facility] Comment on above: Order Comment: Speci men Type: BLOOD SPECIMENOrdering Facility: [facility] Address: [address] [place] [address] Performed By: #### 2 4323-8, 33409-2, 2776-1 ####[facility] LABCLIA [id number] [place] [address] [place] Protein [Mass/Vol] 4.9 g/dL Low 6.3-8.0 [facility] Comment on above: Order Comment: Speci men Type: BLOOD SPECIMENOrdering Facility: [facility] Address: [address] [place] [address] Performed By: #### 2 4323-8, , 2776- ####[facility] LABCLIA [id number] [place] [address] [place] Sodium [Moles/Vol] 136 mmol/L Normal 136-144 [facility] Comment on above: Order Comment: Speci men Type: BLOOD SPECIMENOrdering Facility: [facility] Address: [address] [place] [address] Performed By: #### 2 4323-8, , 2776- ####[facility] LABCLIA [id number] [place] [address] [place] Urea nitrogen [Mass/Vol] 22 mg/dL Normal 9-24 [facility] Comment on above: Order Comment: Speci men Type: BLOOD SPECIMENOrdering Facility: [facility] Address: [address] [place] [address] Performed By: #### 2 4323-8, 00852-7, 2776- ####[facility] LABCLIA [id number] [place] [id number] [place] Fact Xa PPP-aCncon 5 Coagulation factor X activated act Coag Qn (PPP) 0.74 IU/mL High <0.10 [facility] Comment on above: Order Comment: Gini nowak Type: BLOOD SPECIMENOrdering Facility: [facility] Address: [address] [place] [address] Result Comment: The recommended therapeutic range for treatment of venous and arterial thrombosis with intravenous unfractionated heparin is an anti Xa activity level of 0.3 to 0.7 IU/mL. In patients with concomitant therapy with thrombolytic agents and/or platelet glycoprotein IIb/IIIa antagonists, the recommended therapeutic range is an anti Xa activity level of 0.2 to 0.5 IU/mL. Performed By: #### 3 217-7, 77081-8 ####[facility] [id number] [place] [address] [place] Gas and Carbon monoxide pane l (BldV)on 10-19-2024 Base excess Calc (BldV) [Moles/Vol] 1 mmol/L Normal 0-2 [facility] Comment on above: Order Comment: Gini nowak Type: VENOUS BLOOD SPECIMENOrdering Facility: [facility] Address: [address] [place] [address] Performed By: #### 2 4344-4 ####[facility] [id number] [place] [address] [place] Calcium.ionized adjusted to pH 7.4 (BldA) [Moles/Vol] 1.09 mmol/L Normal 1.08-1.30 [facility] Comment on above: Order Comment: Gini nowak Type: VENOUS BLOOD SPECIMENOrdering Facility: [facility] Address: [address] [place] [address] Performed By: #### 2 4344-4 ####[facility] [id number] [place] [address] [place] Carboxyhemoglobin (BldV) [Mass fraction] 1.4 % Normal 0.0-2.0 [facility] Comment on above: Order Comment: Corbyi men Type: VENOUS BLOOD SPECIMENOrdering Facility: [facility] Address: [address] [place] [address] Result Comment: Carb oxyhemoglobin Reference Range for Smokers: 2.0-8.0% Performed By: #### 2 4344-4 ####[facility] LABCLIA [id number] [address] [address] [place] CO2 (BldV) [Partial pressure] 47 mm[Hg] Normal 42-55 [facility] Comment on above: Order Comment: Speci men Type: VENOUS BLOOD SPECIMENOrdering Facility: [facility] Address: [address] [place] [address] Performed By: #### 2 4344-4 ####[facility] LABCLIA [id number] [place] [address] [place] CO2 adjusted to patient's actual temperature (BldV) [Partial pressure] 48 mmHg Normal 42-55 [facility] Comment on above: Order Comment: Speci men Type: VENOUS BLOOD SPECIMENOrdering Facility: [facility] Address: [address] [place] [address] Performed By: #### 2 4344-4 ####[facility] LABCLIA [id number] [place] [address] [place] Glucose [Mass/Vol] 251 mg/dL High 60-105 [facility] Comment on above: Order Comment: Speci men Type: VENOUS BLOOD SPECIMENOrdering Facility: [facility] Address: [address] [place] [address] Performed By: #### 2 4344-4 ####[facility] LABCLIA [id number] [place] [id number] [place] HCO3 (Bld) [Moles/Vol] 26 mmol/L Normal 24-[address] [facility] Comment on above: Order Comment: Speci men Type: VENOUS BLOOD SPECIMENOrdering Facility: [facility] Address: [address] [place] [address] Performed By: #### 2 4344-4 ####[facility] LABIA [id number] [place] [address] [place] Hematocrit (Bld) [Volume fraction] 27.7 % Low 39.0-51.0 [facility] Comment on above: Order Comment: Speci men Type: VENOUS BLOOD SPECIMENOrdering Facility: [facility] Address: [address] [place] [address] Performed By: #### 2 4344-4 ####[facility] LABIA [id number] [place] [address] [place] Hemoglobin (Bld) [Mass/Vol] 8.9 g/dL Low 13.0-17.0 [facility] Comment on above: Order Comment: Speci men Type: VENOUS BLOOD SPECIMENOrdering Facility: [facility] Address: [address] [place] [address] Performed By: #### 2 4344-4 ####[facility] LABIA [id number] [place] [address] [place] Lactate [Moles/Vol] 1.8 mmol/L Normal 0.5-2.2 [facility] Comment on above: Order Comment: Speci men Type: VENOUS BLOOD SPECIMENOrdering Facility: [facility] Address: [address] [place] [address] Performed By: #### 2 4344-4 ####[facility] LABIA [id number] [place] [address] [place] Methemoglobin (Bld) [Mass fraction] 1.5 % Normal 0.0-1.5 [facility] Comment on above: Order Comment: Speci men Type: VENOUS BLOOD SPECIMENOrdering Facility: [facility] Address: [address] [place] [address] Performed By: #### 2 4344-4 ####[facility] LABIA [id number] [id number] [address] [place] Oxygen (BldV) [Partial pressure] 39 mm[Hg] Normal 35-45 [facility] Comment on above: Order Comment: Speci men Type: VENOUS BLOOD SPECIMENOrdering Facility: [facility] Address: [address] [place] [address] Performed By: #### 2 4344-4 ####[facility] LABCLIA [id number] [place] [id number] [place] Oxygen adjusted to patient's actual temperature (BldV) [Partial pressure] 39 mmHg Normal 35-45 [facility] Comment on above: Order Comment: Speci men Type: VENOUS BLOOD SPECIMENOrdering Facility: [facility] Address: [address] [place] [address] Performed By: #### 2 4344-4 ####[facility] LABCLIA [id number] [place] [address] [place] Oxygen saturation in Venous blood 68 % Normal 60-85 [facility] Comment on above: Order Comment: Speci men Type: VENOUS BLOOD SPECIMENOrdering Facility: [facility] Address: [address] [place] [address] Performed By: #### 2 4344-4 ####[facility] LABCLIA [id number] [place] [address] [place] Oxyhemoglobin (BldV) [Mass fraction] 66 % Normal 60-85 [facility] Comment on above: Order Comment: Speci men Type: VENOUS BLOOD SPECIMENOrdering Facility: [facility] Address: [address] [place] [address] Performed By: #### 2 4344-4 ####[facility] LABCLIA [id number] [place] [id number] [place] pH (BldV) 7.36 [pH] Normal 7.32-7.42 [facility] Comment on above: Order Comment: Speci men Type: VENOUS BLOOD SPECIMENOrdering Facility: [facility] Address: [address] [place] [address] Performed By: #### 2 4344-4 ####[facility] LABCLIA [id number] [place] [address] [place] pH adjusted to patient's actual temperature (BldV) 7.36 Normal 7.32-7.42 [facility] Comment on above: Order Comment: Speci men Type: VENOUS BLOOD SPECIMENOrdering Facility: [facility] Address: [address] [place] [address] Performed By: #### 2 4344-4 ####[facility] LABCLIA [id number] [place] [address] [place] Potassium [Moles/Vol] 4.5 mmol/L Normal 3.5-5.0 [facility] Comment on above: Order Comment: Speci men Type: VENOUS BLOOD SPECIMENOrdering Facility: [facility] Address: [address] [place] [address] Performed By: #### 2 4344-4 ####[facility] LABCLIA [id number] [place] [address] [place] Sodium [Moles/Vol] 132 mmol/L Low 136-144 [facility] Comment on above: Order Comment: Speci men Type: VENOUS BLOOD SPECIMENOrdering Facility: [facility] Address: [address] [place], [place] [address] Performed By: #### 2 4344-4 ####[facility] LABCLIA [id number] [place] [id number] [place] Base excess Calc (BldV) [Moles/Vol] 3 mmol/L High 0-2 [facility] Comment on above: Order Comment: Speci men Type: VENOUS BLOOD SPECIMENOrdering Facility: [facility] Address: [address] [place], [place] [address] Performed By: #### 2 4344-4 ####[facility] LABCLIA [id number] [place] [id number] [place] Body temperature 97.52 [degF] Normal [facility] Comment on above: Order Comment: Speci men Type: VENOUS BLOOD SPECIMENOrdering Facility: [facility] Address: [address] [place] [address] Performed By: #### 2 4344-4 ####[facility] LABCLIA [id number] [place] [address] [place] Calcium.ionized (Bld) [Mass/Vol] 1.13 mmol/L Normal 1.08-1.30 [facility] Comment on above: Order Comment: Speci men Type: VENOUS BLOOD SPECIMENOrdering Facility: [facility] Address: [address] [place] [address] Performed By: #### 2 4344-4 ####[facility] LABIA [id number] [place] [address] [place] Calcium.ionized adjusted to pH 7.4 (BldA) [Moles/Vol] 1.12 mmol/L Normal 1.08-1.30 [facility] Comment on above: Order Comment: Speci men Type: VENOUS BLOOD SPECIMENOrdering Facility: [facility] Address: [address] [place] [address] Performed By: #### 2 4344-4 ####[facility] LABIA [id number] [place] [address] [place] Carboxyhemoglobin (BldV) [Mass fraction] 1.2 % Normal 0.0-2.0 [facility] Comment on above: Order Comment: Speci men Type: VENOUS BLOOD SPECIMENOrdering Facility: [facility] Address: [address] [place] [address] Result Comment: Carb oxyhemoglobin Reference Range for Smokers: 2.0-8.0% Performed By: #### 2 4344-4 ####[facility] LABCLIA [id number] [place] [address] [place] CO2 (BldV) [Partial pressure] 49 mm[Hg] Normal 42-55 [facility] Comment on above: Order Comment: Speci men Type: VENOUS BLOOD SPECIMENOrdering Facility: [facility] Address: [address] [place] [address] Performed By: #### 2 4344-4 ####[facility] LABCLIA [id number] [facility] [address] [place] [address] [place] CO2 adjusted to patient's actual temperature (BldV) [Partial pressure] 47 mmHg Normal 42-55 [facility] Comment on above: Order Comment: Speci men Type: VENOUS BLOOD SPECIMENOrdering Facility: [facility] Address: [address] [place] [address] Performed By: #### 2 4344-4 ####[facility] LABCLIA [id number] [address] [address] [place] Glucose [Mass/Vol] 226 mg/dL High 60-105 [facility] Comment on above: Order Comment: Speci men Type: VENOUS BLOOD SPECIMENOrdering Facility: [facility] Address: [address] [place], [place] [address] Performed By: #### 2 4344-4 ####[facility] LABCLIA [id number] [address] [address] [place] HCO3 (Bld) [Moles/Vol] 28 mmol/L Normal 24-[address] [facility] Comment on above: Order Comment: Speci men Type: VENOUS BLOOD SPECIMENOrdering Facility: [facility] Address: [address] [place] [address] Performed By: #### 2 4344-4 ####[facility] LABCLIA [id number] [address] [address] [place] Hematocrit (Bld) [Volume fraction] 29.0 % Low 39.0-51.0 [facility] Comment on above: Order Comment: Speci men Type: VENOUS BLOOD SPECIMENOrdering Facility: [facility] Address: [address] [place] [address] Performed By: #### 2 4344-4 ####[facility] LABCLIA [id number] [place] [address] [place] Hemoglobin (Bld) [Mass/Vol] 9.3 g/dL Low 13.0-17.0 [facility] Comment on above: Order Comment: Speci men Type: VENOUS BLOOD SPECIMENOrdering Facility: [facility] Address: [address] [place] [address] Performed By: #### 2 4344-4 ####[facility] LABCLIA [id number] [place] [address] [place] Lactate [Moles/Vol] 1.7 mmol/L Normal 0.5-2.2 [facility] Comment on above: Order Comment: Speci men Type: VENOUS BLOOD SPECIMENOrdering Facility: [facility] Address: [address] [place] [address] Performed By: #### 2 4344-4 ####[facility] LABCLIA [id number] [place] [address] [place] LITERS 2 Liters/min Normal [facility] Comment on above: Order Comment: Speci men Type: VENOUS BLOOD SPECIMENOrdering Facility: [facility] Address: [address] [place] [address] Performed By: #### 2 4344-4 ####[facility] LABCLIA [id number] [place] [id number] [place] Methemoglobin (Bld) [Mass fraction] 1.7 % High 0.0-1.5 [facility] Comment on above: Order Comment: Speci men Type: VENOUS BLOOD SPECIMENOrdering Facility: [facility] Address: [address] [place], [place] [address] Performed By: #### 2 4344-4 ####[facility] LABCLIA [id number] [address] [id number], [place] [address] [place] O2 THERAPY NC = Nasal Cannula Normal [facility] Comment on above: Order Comment: Speci men Type: VENOUS BLOOD SPECIMENOrdering Facility: [facility] Address: [address] [place] [address] Performed By: #### 2 4344-4 ####[facility] LABCLIA [id number] [address] [place] [address] [place] Oxygen (BldV) [Partial pressure] 31 mm[Hg] Low 35-45 [facility] Comment on above: Order Comment: Speci men Type: VENOUS BLOOD SPECIMENOrdering Facility: [facility] Address: [address] [place] [address] Performed By: #### 2 4344-4 ####[facility] LABCLIA [id number] [address] [place] [address] [place] Oxygen adjusted to patient's actual temperature (BldV) [Partial pressure] 30 mmHg Low 35-45 [facility] Comment on above: Order Comment: Speci men Type: VENOUS BLOOD SPECIMENOrdering Facility: [facility] Address: [address] [place] [address] Performed By: #### 2 4344-4 ####[facility] LABCLIA [id number] [address] [place] [address] [place] Oxygen saturation in Venous blood 52 % Low 60-85 [facility] Comment on above: Order Comment: Speci men Type: VENOUS BLOOD SPECIMENOrdering Facility: [facility] Address: [address] [place] [address] Performed By: #### 2 4344-4 ####[facility] LABCLIA [id number] [address] [address] [place] Oxyhemoglobin (BldV) [Mass fraction] 51 % Low 60-85 [facility] Comment on above: Order Comment: Speci men Type: VENOUS BLOOD SPECIMENOrdering Facility: [facility] Address: [address] [place] [address] Performed By: #### 2 4344-4 ####[facility] LABCLIA [id number] [place] [id number] [place] pH (BldV) 7.38 [pH] Normal 7.32-7.42 [facility] Comment on above: Order Comment: Speci men Type: VENOUS BLOOD SPECIMENOrdering Facility: [facility] Address: [address] [place] [address] Performed By: #### 2 4344-4 ####[facility] LABIA [id number] [place] [address] [place] pH adjusted to patient's actual temperature (BldV) 7.39 Normal 7.32-7.42 [facility] Comment on above: Order Comment: Speci men Type: VENOUS BLOOD SPECIMENOrdering Facility: [facility] Address: [address] [place] [address] Performed By: #### 2 4344-4 ####[facility] LABIA [id number] [place] [address] [place] Potassium [Moles/Vol] 4.8 mmol/L Normal 3.5-5.0 [facility] Comment on above: Order Comment: Speci men Type: VENOUS BLOOD SPECIMENOrdering Facility: [facility] Address: [address] [place] [address] Performed By: #### 2 4344-4 ####[facility] LABIA [id number] [place] [id number] [place] Sodium [Moles/Vol] 132 mmol/L Low 136-144 [facility] Comment on above: Order Comment: Speci men Type: VENOUS BLOOD SPECIMENOrdering Facility: [facility] Address: [address] [place] [address] Performed By: #### 2 4344-4 ####[facility] LABIA [id number] [place] [id number] [place] Base excess Calc (BldV) [Moles/Vol] 0 mmol/L Normal 0-2 [facility] Comment on above: Order Comment: Speci men Type: VENOUS BLOOD SPECIMENOrdering Facility: [facility] Address: [address] [place] [address] Performed By: #### 2 4344-4 ####[facility] LABIA [id number] [place] [address] [place] Body temperature 96.08 [degF] Normal [facility] Comment on above: Order Comment: Speci men Type: VENOUS BLOOD SPECIMENOrdering Facility: [facility] Address: [address] [place] [address] Performed By: #### 2 4344-4 ####[facility] LABIA [id number] [place] [address] [place] Calcium.ionized (Bld) [Mass/Vol] 1.18 mmol/L Normal 1.08-1.30 [facility] Comment on above: Order Comment: Speci men Type: VENOUS BLOOD SPECIMENOrdering Facility: [facility] Address: [address] [place] [address] Performed By: #### 2 4344-4 ####[facility] LABIA [id number] [place] [address] [place] Calcium.ionized adjusted to pH 7.4 (BldA) [Moles/Vol] 1.15 mmol/L Normal 1.08-1.30 [facility] Comment on above: Order Comment: Speci men Type: VENOUS BLOOD SPECIMENOrdering Facility: [facility] Address: [address] [place], [place] [address] Performed By: #### 2 4344-4 ####[facility] LABIA [id number] [place] [address] [place] Carboxyhemoglobin (BldV) [Mass fraction] 1.3 % Normal 0.0-2.0 [facility] Comment on above: Order Comment: Speci men Type: VENOUS BLOOD SPECIMENOrdering Facility: [facility] Address: [address] [place], [place] [address] Result Comment: Carb oxyhemoglobin Reference Range for Smokers: 2.0-8.0% Performed By: #### 2 4344-4 ####[facility] LABCLIA [id number] [address] [address] [place] CO2 (BldV) [Partial pressure] 48 mm[Hg] Normal 42-55 [facility] Comment on above: Order Comment: Speci men Type: VENOUS BLOOD SPECIMENOrdering Facility: [facility] Address: [address] [place] [address] Performed By: #### 2 4344-4 ####[facility] LABCLIA [id number] [address] [address] [place] CO2 adjusted to patient's actual temperature (BldV) [Partial pressure] 45 mmHg Normal 42-55 [facility] Comment on above: Order Comment: Speci men Type: VENOUS BLOOD SPECIMENOrdering Facility: [facility] Address: [address] [place] [address] Performed By: #### 2 4344-4 ####[facility] LABCLIA [id number] [place] [id number] [place] Glucose [Mass/Vol] 255 mg/dL High 60-105 [facility] Comment on above: Order Comment: Speci men Type: VENOUS BLOOD SPECIMENOrdering Facility: [facility] Address: [address] [place] [address] Performed By: #### 2 4344-4 ####[facility] LABCLIA [id number] [place] [id number] [place] HCO3 (Bld) [Moles/Vol] 25 mmol/L Normal 24-[address] [facility] Comment on above: Order Comment: Speci men Type: VENOUS BLOOD SPECIMENOrdering Facility: [facility] Address: [address] [place], [place] [address] Performed By: #### 2 4344-4 ####[facility] LABIA [id number] [place] [address] [place] Hematocrit (Bld) [Volume fraction] 30.3 % Low 39.0-51.0 [facility] Comment on above: Order Comment: Speci men Type: VENOUS BLOOD SPECIMENOrdering Facility: [facility] Address: [address] [place] [address] Performed By: #### 2 4344-4 ####[facility] LABIA [id number] [place] [address] [place] Hemoglobin (Bld) [Mass/Vol] 9.8 g/dL Low 13.0-17.0 [facility] Comment on above: Order Comment: Speci men Type: VENOUS BLOOD SPECIMENOrdering Facility: [facility] Address: [address] [place] [address] Performed By: #### 2 4344-4 ####[facility] LABIA [id number] [place] [address] [place] Lactate [Moles/Vol] 0.9 mmol/L Normal 0.5-2.2 [facility] Comment on above: Order Comment: Speci men Type: VENOUS BLOOD SPECIMENOrdering Facility: [facility] Address: [address] [place] [address] Performed By: #### 2 4344-4 ####[facility] LABIA [id number] [place] [address] [place] LITERS 2 Liters/min Normal [facility] Comment on above: Order Comment: Speci men Type: VENOUS BLOOD SPECIMENOrdering Facility: [facility] Address: [address] [place] [address] Performed By: #### 2 4344-4 ####[facility] LABIA [id number] [place] [id number] [place] Methemoglobin (Bld) [Mass fraction] 1.6 % High 0.0-1.5 [facility] Comment on above: Order Comment: Speci men Type: VENOUS BLOOD SPECIMENOrdering Facility: [facility] Address: [address] [place] [address] Performed By: #### 2 4344-4 ####[facility] LABCLIA [id number] [address] [place] [address] [place] O2 THERAPY NC = Nasal Cannula Normal [facility] Comment on above: Order Comment: Speci men Type: VENOUS BLOOD SPECIMENOrdering Facility: [facility] Address: [address] [place], [place] [address] Performed By: #### 2 4344-4 ####[facility] LABCLIA [id number] [address] [place] [address] [place] Oxygen (BldV) [Partial pressure] 42 mm[Hg] Normal 35-45 [facility] Comment on above: Order Comment: Speci men Type: VENOUS BLOOD SPECIMENOrdering Facility: [facility] Address: [address] [place] [address] Performed By: #### 2 4344-4 ####[facility] LABCLIA [id number] [address] [place] [address] [place] Oxygen adjusted to patient's actual temperature (BldV) [Partial pressure] 38 mmHg Normal 35-45 [facility] Comment on above: Order Comment: Speci men Type: VENOUS BLOOD SPECIMENOrdering Facility: [facility] Address: [address] [place] [address] Performed By: #### 2 4344-4 ####[facility] LABCLIA [id number] [address] [address] [place] Oxygen saturation in Venous blood 73 % Normal 60-85 [facility] Comment on above: Order Comment: Speci men Type: VENOUS BLOOD SPECIMENOrdering Facility: [facility] Address: [address] [place] [address] Performed By: #### 2 4344-4 ####[facility] LABCLIA [id number] [address] [address] [place] Oxyhemoglobin (BldV) [Mass fraction] 71 % Normal 60-85 [facility] Comment on above: Order Comment: Speci men Type: VENOUS BLOOD SPECIMENOrdering Facility: [facility] Address: [address] [place] [address] Performed By: #### 2 4344-4 ####[facility] LABIA [id number] [place] [address] [place] pH (BldV) 7.35 [pH] Normal 7.32-7.42 [facility] Comment on above: Order Comment: Speci men Type: VENOUS BLOOD SPECIMENOrdering Facility: [facility] Address: [address] [place] [address] Performed By: #### 2 4344-4 ####[facility] LABIA [id number] [place] [address] [place] pH adjusted to patient's actual temperature (BldV) 7.37 Normal 7.32-7.42 [facility] Comment on above: Order Comment: Speci men Type: VENOUS BLOOD SPECIMENOrdering Facility: [facility] Address: [address] [place] [address] Performed By: #### 2 4344-4 ####[facility] LABIA [id number] [place] [id number] [place] Potassium [Moles/Vol] 4.5 mmol/L Normal 3.5-5.0 [facility] Comment on above: Order Comment: Speci men Type: VENOUS BLOOD SPECIMENOrdering Facility: [facility] Address: [address] [place] [address] Performed By: #### 2 4344-4 ####[facility] LABIA [id number] [place] [id number] [place] Sodium [Moles/Vol] 135 mmol/L Low 136-144 [facility] Comment on above: Order Comment: Speci men Type: VENOUS BLOOD SPECIMENOrdering Facility: [facility] Address: [address] [place] [address] Performed By: #### 2 4344-4 ####[facility] LABIA [id number] [place] [address] [place] Base excess Calc (BldV) [Moles/Vol] 2 mmol/L Normal 0-2 [facility] Comment on above: Order Comment: Speci men Type: VENOUS BLOOD SPECIMENOrdering Facility: [facility] Address: [address] [place] [address] Performed By: #### 2 4344-4 ####[facility] [id number] [place] [address] [place] Calcium.ionized (Bld) [Mass/Vol] 1.16 mmol/L Normal 1.08-1.30 [facility] Comment on above: Order Comment: Speci men Type: VENOUS BLOOD SPECIMENOrdering Facility: [facility] Address: [address] [place] [address] Performed By: #### 2 4344-4 ####[facility]IA [id number] [place] [address] [place] Carboxyhemoglobin (BldV) [Mass fraction] 1.4 % Normal 0.0-2.0 [facility] Comment on above: Order Comment: Speci men Type: VENOUS BLOOD SPECIMENOrdering Facility: [facility] Address: [address] [place] [address] Result Comment: Carb oxyhemoglobin Reference Range for Smokers: 2.0-8.0% Performed By: #### 2 4344-4 ####[facility]IA [id number] [place] [address] [place] CO2 (BldV) [Partial pressure] 49 mm[Hg] Normal 42-55 [facility] Comment on above: Order Comment: Speci men Type: VENOUS BLOOD SPECIMENOrdering Facility: [facility] Address: [address] [id number] Performed By: #### 2 4344-4 ####[facility] LABCLIA [id number] [address] [address] [place] CO2 adjusted to patient's actual temperature (BldV) [Partial pressure] 47 mmHg Normal 42-55 [facility] Comment on above: Order Comment: Speci men Type: VENOUS BLOOD SPECIMENOrdering Facility: [facility] Address: [address] [place], [place] [address] Performed By: #### 2 4344-4 ####[facility] LABCLIA [id number] [place] [id number] [place] Glucose [Mass/Vol] 125 mg/dL High 60-105 [facility] Comment on above: Order Comment: Speci men Type: VENOUS BLOOD SPECIMENOrdering Facility: [facility] Address: [address] [place] [address] Performed By: #### 2 4344-4 ####[facility] LABCLIA [id number] [place] [id number] [place] HCO3 (Bld) [Moles/Vol] 27 mmol/L Normal 24-[address] [facility] Comment on above: Order Comment: Speci men Type: VENOUS BLOOD SPECIMENOrdering Facility: [facility] Address: [address] [place], [place] [address] Performed By: #### 2 4344-4 ####[facility] LABCLIA [id number] [address] [address] [place] Hematocrit (Bld) [Volume fraction] 28.8 % Low 39.0-51.0 [facility] Comment on above: Order Comment: Speci men Type: VENOUS BLOOD SPECIMENOrdering Facility: [facility] Address: [address] [place], [place] [address] Performed By: #### 2 4344-4 ####[facility] LABCLIA [id number] [address] [address] [place] Hemoglobin (Bld) [Mass/Vol] 9.3 g/dL Low 13.0-17.0 [facility] Comment on above: Order Comment: Speci men Type: VENOUS BLOOD SPECIMENOrdering Facility: [facility] Address: [address] [place], [place] [address] Performed By: #### 2 4344-4 ####[facility]CLIA [id number] [address] [address] [place] Methemoglobin (Bld) [Mass fraction] 1.1 % Normal 0.0-1.5 [facility] Comment on above: Order Comment: Speci men Type: VENOUS BLOOD SPECIMENOrdering Facility: [facility] Address: [address] [place] [address] Performed By: #### 2 4344-4 ####[facility] LABCLIA [id number] [place] [id number] [place] Oxygen (BldV) [Partial pressure] 40 mm[Hg] Normal 35-45 [facility] Comment on above: Order Comment: Speci men Type: VENOUS BLOOD SPECIMENOrdering Facility: [facility] Address: [address] [place], [place] [address] Performed By: #### 2 4344-4 ####[facility] LABCLIA [id number] [place] [id number] [place] Oxygen adjusted to patient's actual temperature (BldV) [Partial pressure] 38 mmHg Normal 35-45 [facility] Comment on above: Order Comment: Speci men Type: VENOUS BLOOD SPECIMENOrdering Facility: [facility] Address: [address] [place], [place] [address] Performed By: #### 2 4344-4 ####[facility]CLIA [id number] [address] [address] [place] Oxygen saturation in Venous blood 63 % Normal 60-85 [facility] Comment on above: Order Comment: Speci men Type: VENOUS BLOOD SPECIMENOrdering Facility: [facility] Address: [address] [place] [address] Performed By: #### 2 4344-4 ####[facility]CLIA [id number] [address] [address] [place] Oxyhemoglobin (BldV) [Mass fraction] 62 % Normal 60-85 [facility] Comment on above: Order Comment: Speci men Type: VENOUS BLOOD SPECIMENOrdering Facility: [facility] Address: [address] [place] [address] Performed By: #### 2 4344-4 ####[facility]CLIA [id number] [place] [address] [place] pH (BldV) 7.37 [pH] Normal 7.32-7.42 [facility] Comment on above: Order Comment: Speci men Type: VENOUS BLOOD SPECIMENOrdering Facility: [facility] Address: [address] [place] [address] Performed By: #### 2 4344-4 ####[facility] [id number] [place] [address] [place] pH adjusted to patient's actual temperature (BldV) 7.38 Normal 7.32-7.42 [facility] Comment on above: Order Comment: Speci men Type: VENOUS BLOOD SPECIMENOrdering Facility: [facility] Address: [address] [place] [address] Performed By: #### 2 4344-4 ####[facility] [id number] [place] [id number] [place] Potassium [Moles/Vol] 3.9 mmol/L Normal 3.5-5.0 [facility] Comment on above: Order Comment: Speci men Type: VENOUS BLOOD SPECIMENOrdering Facility: [facility] Address: [address] [place] [address] Performed By: #### 2 4344-4 ####[facility] LABCLIA [id number] [place] [address] [place] Sodium [Moles/Vol] 135 mmol/L Low 136-144 [facility] Comment on above: Order Comment: Speci men Type: VENOUS BLOOD SPECIMENOrdering Facility: [facility] Address: [address] [place] [address] Performed By: #### 2 4344-4 ####[facility] [id number] [place] [address] [place] Base excess Calc (BldV) [Moles/Vol] 1 mmol/L Normal 0-2 [facility] Comment on above: Order Comment: Speci men Type: VENOUS BLOOD SPECIMENOrdering Facility: [facility] Address: [address] [place] [address] Performed By: #### 2 4344-4 ####[facility] [id number] [place] [address] [place] Body temperature 97.16 [degF] Normal [facility] Comment on above: Order Comment: Speci men Type: VENOUS BLOOD SPECIMENOrdering Facility: [facility] Address: [address] [place] [address] Performed By: #### 2 4344-4 ####[facility] [id number] [place] [address] [place] Calcium.ionized (Bld) [Mass/Vol] 1.17 mmol/L Normal 1.08-1.30 [facility] Comment on above: Order Comment: Speci men Type: VENOUS BLOOD SPECIMENOrdering Facility: [facility] Address: [address] [place] [address] Performed By: #### 2 4344-4 ####[facility] [id number] [place] [address] [place] Calcium.ionized adjusted to pH 7.4 (BldA) [Moles/Vol] 1.13 mmol/L Normal 1.08-1.30 [facility] Comment on above: Order Comment: Speci men Type: VENOUS BLOOD SPECIMENOrdering Facility: [facility] Address: [address] [place] [address] Performed By: #### 2 4344-4 ####[facility] LABCLIA [id number] [place] [address] [place] Carboxyhemoglobin (BldV) [Mass fraction] 1.2 % Normal 0.0-2.0 [facility] Comment on above: Order Comment: Speci men Type: VENOUS BLOOD SPECIMENOrdering Facility: [facility] Address: [address] [place] [address] Result Comment: Carb oxyhemoglobin Reference Range for Smokers: 2.0-8.0% Performed By: #### 2 4344-4 ####[facility] LABCLIA [id number] [place] [address] [place] CO2 (BldV) [Partial pressure] 51 mm[Hg] Normal 42-55 [facility] Comment on above: Order Comment: Speci men Type: VENOUS BLOOD SPECIMENOrdering Facility: [facility] Address: [address] [place] [address] Performed By: #### 2 4344-4 ####[facility] LABCLIA [id number] [place] [address] [place] CO2 adjusted to patient's actual temperature (BldV) [Partial pressure] 49 mmHg Normal 42-55 [facility] Comment on above: Order Comment: Speci men Type: VENOUS BLOOD SPECIMENOrdering Facility: [facility] Address: [address] [place] [address] Performed By: #### 2 4344-4 ####[facility] LABCLIA [id number] [place] [id number] [place] Glucose [Mass/Vol] 142 mg/dL High 60-105 [facility] Comment on above: Order Comment: Speci men Type: VENOUS BLOOD SPECIMENOrdering Facility: [facility] Address: [address] [place], [place] [address] Performed By: #### 2 4344-4 ####[facility] LABCLIA [id number] [address] [address] [place] HCO3 (Bld) [Moles/Vol] 26 mmol/L Normal 24-[address] [facility] Comment on above: Order Comment: Speci men Type: VENOUS BLOOD SPECIMENOrdering Facility: [facility] Address: [address] [place] [address] Performed By: #### 2 4344-4 ####[facility]IA [id number] [place] [address] [place] Hematocrit (Bld) [Volume fraction] 27.1 % Low 39.0-51.0 [facility] Comment on above: Order Comment: Speci men Type: VENOUS BLOOD SPECIMENOrdering Facility: [facility] Address: [address] [place] [address] Performed By: #### 2 4344-4 ####[facility]IA [id number] [place] [address] [place] Hemoglobin (Bld) [Mass/Vol] 8.7 g/dL Low 13.0-17.0 [facility] Comment on above: Order Comment: Speci men Type: VENOUS BLOOD SPECIMENOrdering Facility: [facility] Address: [address] [place] [address] Performed By: #### 2 4344-4 ####[facility]IA [id number] [place] [id number] [place] Lactate [Moles/Vol] 1.0 mmol/L Normal 0.5-2.2 [facility] Comment on above: Order Comment: Speci men Type: VENOUS BLOOD SPECIMENOrdering Facility: [facility] Address: [address] [place] [address] Performed By: #### 2 4344-4 ####[facility] LABCLIA [id number] [address] [place] [address] [place] LITERS 3 Liters/min Normal [facility] Comment on above: Order Comment: Speci men Type: VENOUS BLOOD SPECIMENOrdering Facility: [facility] Address: [address] [place] [address] Performed By: #### 2 4344-4 ####[facility] LABCLIA [id number] [address] [place] [address] [place] Methemoglobin (Bld) [Mass fraction] 1.2 % Normal 0.0-1.5 [facility] Comment on above: Order Comment: Speci men Type: VENOUS BLOOD SPECIMENOrdering Facility: [facility] Address: [address] [place], [place] [address] Performed By: #### 2 4344-4 ####[facility]CLIA [id number] [address] [address] [place] O2 THERAPY NC = Nasal Cannula Normal [facility] Comment on above: Order Comment: Speci men Type: VENOUS BLOOD SPECIMENOrdering Facility: [facility] Address: [address] [place] [address] Performed By: #### 2 4344-4 ####[facility]CLIA [id number] [address] [address] [place] Oxygen (BldV) [Partial pressure] 34 mm[Hg] Low 35-45 [facility] Comment on above: Order Comment: Speci men Type: VENOUS BLOOD SPECIMENOrdering Facility: [facility] Address: [address] [place] [address] Performed By: #### 2 4344-4 ####[facility] LABCLIA [id number] [address] [place] [address] [place] Oxygen adjusted to patient's actual temperature (BldV) [Partial pressure] 32 mmHg Low 35-45 [facility] Comment on above: Order Comment: Speci men Type: VENOUS BLOOD SPECIMENOrdering Facility: [facility] Address: [address] [place] [address] Performed By: #### 2 4344-4 ####[facility] LABCLIA [id number] [address] [place] [address] [place] Oxygen saturation in Venous blood 55 % Low 60-85 [facility] Comment on above: Order Comment: Speci men Type: VENOUS BLOOD SPECIMENOrdering Facility: [facility] Address: [address] [place], [place] [address] Performed By: #### 2 4344-4 ####[facility] LABCLIA [id number] [address] [place] [address] [place] Oxyhemoglobin (BldV) [Mass fraction] 54 % Low 60-85 [facility] Comment on above: Order Comment: Speci men Type: VENOUS BLOOD SPECIMENOrdering Facility: [facility] Address: [address] [place], [place] [address] Performed By: #### 2 4344-4 ####[facility] LABCLIA [id number] [address] [address] [place] pH (BldV) 7.34 [pH] Normal 7.32-7.42 [facility] Comment on above: Order Comment: Speci men Type: VENOUS BLOOD SPECIMENOrdering Facility: [facility] Address: [address] [place] [address] Performed By: #### 2 4344-4 ####[facility]CLIA [id number] [address] [place] [address] [place] pH adjusted to patient's actual temperature (BldV) 7.35 Normal 7.32-7.42 [facility] Comment on above: Order Comment: Speci men Type: VENOUS BLOOD SPECIMENOrdering Facility: [facility] Address: [address] [place] [address] Performed By: #### 2 4344-4 ####[facility] LABCLIA [id number] [place] [id number] [place] Potassium [Moles/Vol] 3.7 mmol/L Normal 3.5-5.0 [facility] Comment on above: Order Comment: Speci men Type: VENOUS BLOOD SPECIMENOrdering Facility: [facility] Address: [address] [place] [address] Performed By: #### 2 4344-4 ####[facility] LABCLIA [id number] [place] [address] [place] Sodium [Moles/Vol] 136 mmol/L Normal 136-144 [facility] Comment on above: Order Comment: Speci men Type: VENOUS BLOOD SPECIMENOrdering Facility: [facility] Address: [address] [place] [address] Performed By: #### 2 4344-4 ####[facility] LABCLIA [id number] [place] [address] [place] BASE DEFICIT, VENOUS -1 mmol/L Normal -2-0 [facility] Comment on above: Order Comment: Speci men Type: VENOUS BLOOD SPECIMENOrdering Facility: [facility] Address: [address] [place] [address] Performed By: #### 2 4344-4 ####[facility]CLIA [id number] [place] [address] [place] Body temperature 97.88 [degF] Normal [facility] Comment on above: Order Comment: Speci men Type: VENOUS BLOOD SPECIMENOrdering Facility: [facility] Address: [address] [place] [address] Performed By: #### 2 4344-4 ####[facility] LABCLIA [id number] [place] [address] [place] Calcium.ionized (Bld) [Mass/Vol] 1.15 mmol/L Normal 1.08-1.30 [facility] Comment on above: Order Comment: Speci men Type: VENOUS BLOOD SPECIMENOrdering Facility: [facility] Address: [address] [place] [address] Performed By: #### 2 4344-4 ####[facility] LABCLIA [id number] [place] [address] [place] Calcium.ionized adjusted to pH 7.4 (BldA) [Moles/Vol] 1.09 mmol/L Normal 1.08-1.30 [facility] Comment on above: Order Comment: Speci men Type: VENOUS BLOOD SPECIMENOrdering Facility: [facility] Address: [address] [place] [address] Performed By: #### 2 4344-4 ####[facility]IA [id number] [place] [address] [place] Carboxyhemoglobin (BldV) [Mass fraction] 1.0 % Normal 0.0-2.0 [facility] Comment on above: Order Comment: Speci men Type: VENOUS BLOOD SPECIMENOrdering Facility: [facility] Address: [address] [place] [address] Result Comment: Carb oxyhemoglobin Reference Range for Smokers: 2.0-8.0% Performed By: #### 2 4344-4 ####[facility]IA [id number] [place] [address] [place] CO2 (BldV) [Partial pressure] 51 mm[Hg] Normal 42-55 [facility] Comment on above: Order Comment: Speci men Type: VENOUS BLOOD SPECIMENOrdering Facility: [facility] Address: [address] [place], [place] [address] Performed By: #### 2 4344-4 ####[facility] LABCLIA [id number] [place] [id number] [place] CO2 adjusted to patient's actual temperature (BldV) [Partial pressure] 50 mmHg Normal 42-55 [facility] Comment on above: Order Comment: Speci men Type: VENOUS BLOOD SPECIMENOrdering Facility: [facility] Address: [address] [place], [place] [address] Performed By: #### 2 4344-4 ####[facility] LABCLIA [id number] [address] [address] [place] Glucose [Mass/Vol] 206 mg/dL High 60-105 [facility] Comment on above: Order Comment: Speci men Type: VENOUS BLOOD SPECIMENOrdering Facility: [facility] Address: [address] [place] [address] Performed By: #### 2 4344-4 ####[facility] LABCLIA [id number] [place] [id number] [place] HCO3 (Bld) [Moles/Vol] 25 mmol/L Normal 24-[address] [facility] Comment on above: Order Comment: Speci men Type: VENOUS BLOOD SPECIMENOrdering Facility: [facility] Address: [address] [place] [address] Performed By: #### 2 4344-4 ####[facility] LABCLIA [id number] [place] [id number] [place] Hematocrit (Bld) [Volume fraction] 26.3 % Low 39.0-51.0 [facility] Comment on above: Order Comment: Speci men Type: VENOUS BLOOD SPECIMENOrdering Facility: [facility] Address: [address] [place] [address] Performed By: #### 2 4344-4 ####[facility]CLIA [id number] [address] [address] [place] Hemoglobin (Bld) [Mass/Vol] 8.5 g/dL Low 13.0-17.0 [facility] Comment on above: Order Comment: Speci men Type: VENOUS BLOOD SPECIMENOrdering Facility: [facility] Address: [address] [place], [place] [address] Performed By: #### 2 4344-4 ####[facility] LABCLIA [id number] [address] [address] [place] Lactate [Moles/Vol] 1.2 mmol/L Normal 0.5-2.2 [facility] Comment on above: Order Comment: Speci men Type: VENOUS BLOOD SPECIMENOrdering Facility: [facility] Address: [address] [place], [place] [address] Performed By: #### 2 4344-4 ####[facility] LABCLIA [id number] [place] [id number] [place] LITERS 3 Liters/min Normal [facility] Comment on above: Order Comment: Speci men Type: VENOUS BLOOD SPECIMENOrdering Facility: [facility] Address: [address] [place] [address] Performed By: #### 2 4344-4 ####[facility] LABIA [id number] [place] [address] [place] Methemoglobin (Bld) [Mass fraction] 1.3 % Normal 0.0-1.5 [facility] Comment on above: Order Comment: Speci men Type: VENOUS BLOOD SPECIMENOrdering Facility: [facility] Address: [address] [place] [address] Performed By: #### 2 4344-4 ####[facility]IA [id number] [place] [id number] [place] O2 THERAPY NC = Nasal Cannula Normal [facility] Comment on above: Order Comment: Speci men Type: VENOUS BLOOD SPECIMENOrdering Facility: [facility] Address: [address] [place] [address] Performed By: #### 2 4344-4 ####[facility]CLIA [id number] [address] [address] [place] Oxygen (BldV) [Partial pressure] 35 mm[Hg] Normal 35-45 [facility] Comment on above: Order Comment: Speci men Type: VENOUS BLOOD SPECIMENOrdering Facility: [facility] Address: [address] [place], [place] [address] Performed By: #### 2 4344-4 ####[facility] LABCLIA [id number] [place] [address] [place] Oxygen adjusted to patient's actual temperature (BldV) [Partial pressure] 34 mmHg Low 35-45 [facility] Comment on above: Order Comment: Speci men Type: VENOUS BLOOD SPECIMENOrdering Facility: [facility] Address: [address] [place] [address] Performed By: #### 2 4344-4 ####[facility]CLIA [id number] [place] [address] [place] Oxygen saturation in Venous blood 57 % Low 60-85 [facility] Comment on above: Order Comment: Speci men Type: VENOUS BLOOD SPECIMENOrdering Facility: [facility] Address: [address] [place] [address] Performed By: #### 2 4344-4 ####[facility]CLIA [id number] [place] [address] [place] Oxyhemoglobin (BldV) [Mass fraction] 56 % Low 60-85 [facility] Comment on above: Order Comment: Speci men Type: VENOUS BLOOD SPECIMENOrdering Facility: [facility] Address: [address] [place] [address] Performed By: #### 2 4344-4 ####[facility] LABCLIA [id number] [place] [id number] [place] pH (BldV) 7.31 [pH] Low 7.32-7.42 [facility] Comment on above: Order Comment: Speci men Type: VENOUS BLOOD SPECIMENOrdering Facility: [facility] Address: [address] [place], [place] [address] Performed By: #### 2 4344-4 ####[facility] LABCLIA [id number] [place] [address] [place] pH adjusted to patient's actual temperature (BldV) 7.32 Normal 7.32-7.42 [facility] Comment on above: Order Comment: Speci men Type: VENOUS BLOOD SPECIMENOrdering Facility: [facility] Address: [address] [place] [address] Performed By: #### 2 4344-4 ####[facility] LABCLIA [id number] [place] [id number] [place] Potassium [Moles/Vol] 3.8 mmol/L Normal 3.5-5.0 [facility] Comment on above: Order Comment: Speci men Type: VENOUS BLOOD SPECIMENOrdering Facility: [facility] Address: [address] [place] [address] Performed By: #### 2 4344-4 ####[facility] LABCLIA [id number] [place] [address] [place] Sodium [Moles/Vol] 134 mmol/L Low 136-144 [facility] Comment on above: Order Comment: Speci men Type: VENOUS BLOOD SPECIMENOrdering Facility: [facility] Address: [address] [place] [address] Performed By: #### 2 4344-4 ####[facility] LABCLIA [id number] [place] [id number] [place] IMMUNOFIXATION SCREEN, SERUM on 10-19-2024 MPA RESULT No M protein is identified. Normal No M protein is identified. [facility] Comment on above: Order Comment: Speci men Type: BLOOD SPECIMENOrdering Facility: [facility] Address: [address] [place] [address] Performed By: #### I [facility] ####[facility] LABCLIA [id number] [place] [id number] [place] STAFF REVIEW (MPA) Reviewed by Dr. Hattie Lopez MD [facility] Comment on above: Order Comment: Speci men Type: BLOOD SPECIMENOrdering Facility: [facility] Address: [address] [place] [address] Performed By: #### I [facility] ####[facility] LABIA [id number] [place] [address] [place] KAPPA/HANNA,FREE,SERon 2024 Immunoglobulin light chains.kappa.free (S) [Mass/Vol] 38.7 mg/L High 3.3-19.4 [facility] Comment on above: Order Comment: Speci men Type: BLOOD SPECIMENOrdering Facility: [facility] Address: [address] [place] [address] Result Comment: Rare ly, increased serum free light chains levels may not be detected or accurately quantified due to prozone phenomenon or in high viscosity samples using this immunoturbidimetric assay. Correlation with other laboratory results and clinical findings is recommended.The [place] Free Light Chain was performed using the Binding Site Optilite immunoturbidimetric method. Result obtained with different assay methods or kits cannot be used interchangeably. Performed By: #### K LFRS ####[facility] LABIA [id number] [place] [address] [place] Immunoglobulin light chains.kappa/Immunoglob ulin light chains.lambda (S) [Mass ratio] 0.91 Normal 0.26-1.65 [facility] Comment on above: Order Comment: Speci men Type: BLOOD SPECIMENOrdering Facility: [facility] Address: [address] [place] [address] Performed By: #### K LFRS ####[facility] [id number] [place] [address] [place] Immunoglobulin light chains.lambda.free [Mass/Vol] 42.3 mg/L High 5.7-26.3 [facility] Comment on above: Order Comment: Speci men Type: BLOOD SPECIMENOrdering Facility: [facility] Address: [address] [place] [address] Result Comment: Rare ly, increased serum free light chains levels may not be detected or accurately quantified due to prozone phenomenon or in high viscosity samples using this immunoturbidimetric assay. Correlation with other laboratory results and clinical findings is recommended.The Lambda Free Light Chain was performed using the Binding Site Optilite immunoturbidimetric method. Result obtained with different assay methods or kits cannot be used interchangeably. Performed By: #### K LFRS ####[facility] LABCLIA [id number] [place] [address] [place] MONOCLONAL PROT UR W/INTERPo n 10-19-2024 STAFF REVIEW (UMPA) Reviewed by Dr. Hattie Lopez MD Normal [facility] Comment on above: Order Comment: Speci men Type: URINE SPECIMENOrdering Facility: [facility] Address: [address] [place] [address] Performed By: #### U RMPA ####[facility] LABIA [id number] [address] [place] [facility] UMPA RESULT No M protein is identified. Normal No M protein is identified. [facility] Comment on above: Order Comment: Speci men Type: URINE SPECIMENOrdering Facility: [facility] Address: [address] [place] [address] Performed By: #### U RMPA ####[facility] LABCLIA [id number] [place] [id number] [place] Magnesium SerPl-mCncon 10-19 Magnesium [Mass/Vol] 3.2 mg/dL High 1.7-2.3 [facility] Comment on above: Order Comment: Speci men Type: BLOOD SPECIMENOrdering Facility: [facility] Address: [address] [place] [address] Result Comment: Resu lt rechecked. Performed By: #### 2 4323-8, 81758-5, 2777-1 ####[facility] LABCLIA [id number] [place] [id number] [place] Phosphate SerPl-mCncon 10-19 Phosphate [Mass/Vol] 3.5 mg/dL Normal 2.7-4.8 [facility] Comment on above: Order Comment: Speci men Type: BLOOD SPECIMENOrdering Facility: [facility] Address: [address] [place] [address] Performed By: #### 2 4323-8, 80011-8, 2777-1 ####[facility] LABCLIA [id number] [place] [id number] [place] Prot/Creat Uron 10-19-2024 Protein/Creatinine (U) [Mass ratio] 0.44 mg/mg High <0.15 [facility] Comment on above: Order Comment: Speci men Type: URINE SPECIMENOrdering Facility: [facility] Address: [address] [place] [address] Result Comment: Adul t Proteinuria Categories:<0.15 mg/mg is considered normal to mildly increased0.15 - 0.50 mg/mg is considered moderately increased>0.50 mg/mg is considered severely increasedKDIGO. (2013). KDIGO 2012 Clinical Practice Guideline for the Evaluation and Management of Chronic Kidney Disease. Official Journal of the International Society of Nephrology, 3(1), 1-150. Performed By: #### 2 890-2 ####[facility] LABIA [id number] [place] [id number] [place] Protein/Creatinine (U) [Mass ratio]on 10-19-2024 Creatinine (U) [Mass/Vol] 9.1 mg/dL Low 20.0-300.0 [facility] Comment on above: Order Comment: Speci men Type: URINE SPECIMENOrdering Facility: [facility] Address: [address] [place] [address] Performed By: #### 2 890-2 ####[facility] LABCLIA [id number] [place] [id number] [place] Protein (U) [Mass/Vol] 4 mg/dL Normal 0-[address] [facility] Comment on above: Order Comment: Speci men Type: URINE SPECIMENOrdering Facility: [facility] Address: [address] [place] [address] Performed By: #### 2 890-2 ####[facility] LABIA [id number] [place] [address] [place] THERAPY NTon 10-19-2024 THERAPY NT Normal [facility] XR CHEST 1V FRONTAL PORTon 0 10-19-2024 XR CHEST 1V FRONTAL PORT Normal [facility] aPTT PPPon 10-19-2024 aPTT Coag (PPP) [Time] s High 23.0-32.[address] [facility] Comment on above: Order Comment: Speci men Type: BLOOD SPECIMENOrdering Facility: [facility] Address: [address] [place] [address] Result Comment: Resu lt rechecked.Sample checked for clot. Performed By: #### 3 217-7, 79822-3 ####[facility] LABIA [id number] [place] [address] [place] aPTT Coag (PPP) [Time] 130.0 s High 23.0-32.[address] [facility] Comment on above: Order Comment: Speci men Type: BLOOD SPECIMENOrdering Facility: [facility] Address: [address] [place] [address] Result Comment: Resu lt rechecked.Sample checked for clot. Performed By: #### 1 4979-9 ####[facility] LABIA [id number] [place] [id number] [place] CASE MGT INIT ASSESon 2024 CASE MGT INIT ASSES Normal [facility] CBC W Auto Differential pane l (Bld)on 10-18-2024 Basophils (Bld) [#/Vol] 0.04 10*3/uL Normal <0.11 [facility] Comment on above: Order Comment: Speci men Type: BLOOD SPECIMENOrdering Facility: [facility] Address: [address] [place] [address] Performed By: #### 5 7021-8 ####[facility] LABCLIA [id number] [place] [address] [place] Basophils/100 WBC (Bld) 0.9 % Normal C [facility] Comment on above: Order Comment: Speci men Type: BLOOD SPECIMENOrdering Facility: [facility] Address: [address] [place] [address] Performed By: #### 5 7021-8 ####[facility] LABCLIA [id number] [place] [address] [place] Differential cell count method Nom (Bld) Auto Normal [facility] Comment on above: Order Comment: Speci men Type: BLOOD SPECIMENOrdering Facility: [facility] Address: [address] [place] [address] Performed By: #### 5 7021-8 ####[facility] LABCLIA [id number] [address] [place] Eosinophils (Bld) [#/Vol] 0.09 10*3/uL Normal <0.46 [facility] Comment on above: Order Comment: Speci men Type: BLOOD SPECIMENOrdering Facility: [facility] Address: [address] [place] [address] Performed By: #### 5 7021-8 ####[facility] LABCLIA [id number] [address] [place] Eosinophils/100 WBC (Bld) 2.0 % Normal [facility] Comment on above: Order Comment: Speci men Type: BLOOD SPECIMENOrdering Facility: [facility] Address: [address] [place] [address] Performed By: #### 5 7021-8 ####[facility] LABCLIA [id number] [place] [address] [place] Erythrocyte distribution width (RBC) [Ratio] 17.0 % High 11.5-15.0 [facility] Comment on above: Order Comment: Speci men Type: BLOOD SPECIMENOrdering Facility: [facility] Address: [address] [place] [address] Performed By: #### 5 7021-8 ####[facility] LABCLIA [id number] [place] [address] [place] Hematocrit (Bld) [Volume fraction] 28.4 % Low 39.0-51.0 [facility] Comment on above: Order Comment: Speci men Type: BLOOD SPECIMENOrdering Facility: [facility] Address: [address] [place] [address] Performed By: #### 5 7021-8 ####[facility] LABIA [id number] [place] [address] [place] Hemoglobin (Bld) [Mass/Vol] 8.9 g/dL Low 13.0-17.0 [facility] Comment on above: Order Comment: Speci men Type: BLOOD SPECIMENOrdering Facility: [facility] Address: [address] [place] [address] Performed By: #### 5 7021-8 ####[facility] LABIA [id number] [place] [address] [place] Immature granulocytes (Bld) [#/Vol] 10*3/uL Normal <0.10 [facility] Comment on above: Order Comment: Speci men Type: BLOOD SPECIMENOrdering Facility: [facility] Address: [address] [place] [address] Performed By: #### 5 7021-8 ####[facility] LABIA [id number] [place] [address] [place] Immature granulocytes/100 WBC (Bld) 0.2 % Normal [facility] Comment on above: Order Comment: Speci men Type: BLOOD SPECIMENOrdering Facility: [facility] Address: [address] [place] [address] Performed By: #### 5 7021-8 ####[facility] LABCLIA [id number] [place] [address] [place] Lymphocytes (Bld) [#/Vol] 0.74 10*3/uL Low 1.00-4.00 [facility] Comment on above: Order Comment: Speci men Type: BLOOD SPECIMENOrdering Facility: [facility] Address: [address] [place] [address] Performed By: #### 5 7021-8 ####[facility] LABCLIA [id number] [place] [address] [place] Lymphocytes/100 WBC (Bld) 16.6 % Normal [facility] Comment on above: Order Comment: Speci men Type: BLOOD SPECIMENOrdering Facility: [facility] Address: [address] [place] [address] Performed By: #### 5 7021-8 ####[facility] LABCLIA [id number] [place] [address] [place] MCH (RBC) [Entitic mass] 32.0 pg Normal 26.0-34.0 [facility] Comment on above: Order Comment: Speci men Type: BLOOD SPECIMENOrdering Facility: [facility] Address: [address] [place] [address] Performed By: #### 5 7021-8 ####[facility] LABCLIA [id number] [place] [address] [place] MCHC (RBC) [Mass/Vol] 31.3 g/dL Normal 30.5-36.0 [facility] Comment on above: Order Comment: Speci men Type: BLOOD SPECIMENOrdering Facility: [facility] Address: [address] [place] [address] Performed By: #### 5 7021-8 ####[facility] LABCLIA [id number] [place] [address] [place] MCV (RBC) [Entitic vol] 102.2 fL High 80.0-100.0 C [facility] Comment on above: Order Comment: Speci men Type: BLOOD SPECIMENOrdering Facility: [facility] Address: [address] [place] [address] Performed By: #### 5 7021-8 ####[facility] LABCLIA [id number] [place] [address] [place] Monocytes (Bld) [#/Vol] 0.65 10*3/uL Normal <0.87 [facility] Comment on above: Order Comment: Speci men Type: BLOOD SPECIMENOrdering Facility: [facility] Address: [address] [place] [address] Performed By: #### 5 7021-8 ####[facility] LABCLIA [id number] [place] [address] [place] Monocytes/100 WBC (Bld) 14.6 % Normal C [facility] Comment on above: Order Comment: Speci men Type: BLOOD SPECIMENOrdering Facility: [facility] Address: [address] [place] [address] Performed By: #### 5 7021-8 ####[facility] LABCLIA [id number] [place] [address] [place] Neutrophils (Bld) [#/Vol] 2.93 10*3/uL Normal 1.45-7.50 [facility] Comment on above: Order Comment: Speci men Type: BLOOD SPECIMENOrdering Facility: [facility] Address: [address] [place] [address] Performed By: #### 5 7021-8 ####[facility] LABCLIA [id number] [place] [address] [place] Neutrophils/100 WBC (Bld) 65.7 % Normal [facility] Comment on above: Order Comment: Speci men Type: BLOOD SPECIMENOrdering Facility: [facility] Address: [address] [place] [address] Performed By: #### 5 7021-8 ####[facility] LABCLIA [id number] [place] [address] [place] Nucleated RBC (Bld) [#/Vol] 10*3/uL Normal <0.01 [facility] Comment on above: Order Comment: Speci men Type: BLOOD SPECIMENOrdering Facility: [facility] Address: [address] [place] [address] Performed By: #### 5 7021-8 ####[facility] LABCLIA [id number] [place] [address] [place] Nucleated RBC/100 WBC (Bld) [Ratio] 0.0 /100 WBC Normal [facility] Comment on above: Order Comment: Speci men Type: BLOOD SPECIMENOrdering Facility: [facility] Address: [address] [place] [address] Performed By: #### 5 7021-8 ####[facility] LABIA [id number] [place] [address] [place] Platelet mean volume (Bld) [Entitic vol] 12.2 fL Normal 9.0-12.7 [facility] Comment on above: Order Comment: Speci men Type: BLOOD SPECIMENOrdering Facility: [facility] Address: [address] [place] [address] Performed By: #### 5 7021-8 ####[facility] LABCLIA [id number] [place] [id number] [place] Platelets (Bld) [#/Vol] 120 10*3/uL Low 150-400 [facility] Comment on above: Order Comment: Speci men Type: BLOOD SPECIMENOrdering Facility: [facility] Address: [address] [place] [address] Performed By: #### 5 7021-8 ####[facility] LABCLIA [id number] [place] [address] [place] RBC (Bld) [#/Vol] 2.78 10*6/uL Low 4.20-6.00 [facility] Comment on above: Order Comment: Speci men Type: BLOOD SPECIMENOrdering Facility: [facility] Address: [address] [place] [address] Performed By: #### 5 7021-8 ####[facility] LABCLIA [id number] [place] [address] [place] WBC (Bld) [#/Vol] 4.46 10*3/uL Normal 3.70-11.00 [facility] Comment on above: Order Comment: Speci men Type: BLOOD SPECIMENOrdering Facility: [facility] Address: [address] [place] [address] Performed By: #### 5 7021-8 ####[facility] LABCLIA [id number] [place] [address] [place] CBC panel Auto (Bld)on 10-18 Erythrocyte distribution width (RBC) [Ratio] 17.0 % High 11.5-15.0 [facility] Comment on above: Order Comment: Speci men Type: BLOOD SPECIMENOrdering Facility: [facility] Address: [address] [place] [address] Performed By: #### 5 8410-2 ####[facility] LABCLIA [id number] [place] [address] [place] Hematocrit (Bld) [Volume fraction] 29.7 % Low 39.0-51.0 [facility] Comment on above: Order Comment: Speci men Type: BLOOD SPECIMENOrdering Facility: [facility] Address: [address] [place] [address] Performed By: #### 5 8410-2 ####[facility] LABCLIA [id number] [place] [address] [place] Hemoglobin (Bld) [Mass/Vol] 9.0 g/dL Low 13.0-17.0 [facility] Comment on above: Order Comment: Speci men Type: BLOOD SPECIMENOrdering Facility: [facility] Address: [address] [place] [address] Performed By: #### 5 8410-2 ####[facility] LABIA [id number] [place] [address] [place] MCH (RBC) [Entitic mass] 31.7 pg Normal 26.0-34.0 [facility] Comment on above: Order Comment: Speci men Type: BLOOD SPECIMENOrdering Facility: [facility] Address: [address] [place] [address] Performed By: #### 5 8410-2 ####[facility] LABIA [id number] [place] [address] [place] MCHC (RBC) [Mass/Vol] 30.3 g/dL Low 30.5-36.0 [facility] Comment on above: Order Comment: Speci men Type: BLOOD SPECIMENOrdering Facility: [facility] Address: [address] [place] [address] Performed By: #### 5 8410-2 ####[facility] LABIA [id number] [place] [address] [place] MCV (RBC) [Entitic vol] 104.6 fL High 80.0-100.0 C [facility] Comment on above: Order Comment: Speci men Type: BLOOD SPECIMENOrdering Facility: [facility] Address: [address] [place] [address] Performed By: #### 5 8410-2 ####[facility] LABIA [id number] [place] [address] [place] Nucleated RBC (Bld) [#/Vol] 10*3/uL Normal <0.01 [facility] Comment on above: Order Comment: Speci men Type: BLOOD SPECIMENOrdering Facility: [facility] Address: [address] [place] [address] Performed By: #### 5 8410-2 ####[facility] LABCLIA [id number] [place] [address] [place] Platelet mean volume (Bld) [Entitic vol] 12.1 fL Normal 9.0-12.7 [facility] Comment on above: Order Comment: Speci men Type: BLOOD SPECIMENOrdering Facility: [facility] Address: [address] [place] [address] Performed By: #### 5 8410-2 ####[facility] LABCLIA [id number] [place] [address] [place] Platelets (Bld) [#/Vol] 135 10*3/uL Low 150-400 [facility] Comment on above: Order Comment: Speci men Type: BLOOD SPECIMENOrdering Facility: [facility] Address: [address] [place] [address] Performed By: #### 5 8410-2 ####[facility] LABCLIA [id number] [place] [address] [place] RBC (Bld) [#/Vol] 2.84 10*6/uL Low 4.20-6.00 [facility] Comment on above: Order Comment: Speci men Type: BLOOD SPECIMENOrdering Facility: [facility] Address: [address] [place] [address] Performed By: #### 5 8410-2 ####[facility] LABCLIA [id number] [place] [id number] [place] WBC (Bld) [#/Vol] 4.80 10*3/uL Normal 3.70-11.00 [facility] Comment on above: Order Comment: Speci men Type: BLOOD SPECIMENOrdering Facility: [facility] Address: [address] [place] [address] Performed By: #### 5 8410-2 ####[facility] LABCLIA [id number] [facility] [address] [place] [address] [place] CT ABD/PEL W IVCONon 025 CT ABD/PEL W IVCON Normal [facility] CT CHEST W IVCONon 5 CT CHEST W IVCON Normal [facility] Comprehensive metabolic 2000 panelon 10-18-2024 Albumin [Mass/Vol] 2.7 g/dL Low 3.9-4.9 [facility] Comment on above: Order Comment: Speci men Type: BLOOD SPECIMENOrdering Facility: [facility] Address: [address] [place] [address] Performed By: #### 2 4323-8, ####[facility] LABCLIA [id number] [address] [address] [place] ALP [Catalytic activity/Vol] 93 U/L Normal 38-113 [facility] Comment on above: Order Comment: Speci men Type: BLOOD SPECIMENOrdering Facility: [facility] Address: [address] [place] [address] Performed By: #### 2 4323-8, ####[facility] LABCLIA [id number] [address] [address] [place] ALT [Catalytic activity/Vol] 12 U/L Normal 10-54 [facility] Comment on above: Order Comment: Speci men Type: BLOOD SPECIMENOrdering Facility: [facility] Address: [address] [place] [address] Performed By: #### 2 4323-8, ####[facility] LABCLIA [id number] [address] [address] [place] Anion gap [Moles/Vol] 11 mmol/L Normal 8-15 [facility] Comment on above: Order Comment: Speci men Type: BLOOD SPECIMENOrdering Facility: [facility] Address: [address] [place] [address] Performed By: #### 2 432-8, ####[facility] LABCLIA [id number] [address] [place] [address] [place] AST [Catalytic activity/Vol] 23 U/L Normal 14-40 [facility] Comment on above: Order Comment: Speci men Type: BLOOD SPECIMENOrdering Facility: [facility] Address: [address] [place] [address] Performed By: #### 2 4328, ####[facility] LABCLIA [id number] [address] [address] [place] Bilirubin [Mass/Vol] 0.2 mg/dL Normal 0.2-1.3 [facility] Comment on above: Order Comment: Speci men Type: BLOOD SPECIMENOrdering Facility: [facility] Address: [address] [place] [address] Performed By: #### 2 4322-09, ####[facility] LABCLIA [id number] [address] [address] [place] Calcium [Mass/Vol] 7.8 mg/dL Low 8.5-10.2 [facility] Comment on above: Order Comment: Speci men Type: BLOOD SPECIMENOrdering Facility: [facility] Address: [address] [place], [place] [address] Performed By: #### 2 8, ####[facility] LABCLIA [id number] [address] [address] [place] Chloride [Moles/Vol] 103 mmol/L Normal 98-107 [facility] Comment on above: Order Comment: Speci men Type: BLOOD SPECIMENOrdering Facility: [facility] Address: [address] [place], [place] [address] Performed By: #### 2 4323-8, ####[facility] LABCLIA [id number] [address] [address] [place] CO2 [Moles/Vol] 21 mmol/L Low 22-30 [facility] Comment on above: Order Comment: Speci men Type: BLOOD SPECIMENOrdering Facility: [facility] Address: [address] [place] [address] Performed By: #### 2 4323-8, ####[facility] LABCLIA [id number] [place] [id number] [place] Creatinine [Mass/Vol] 1.64 mg/dL High 0.73-1.22 [facility] Comment on above: Order Comment: Speci men Type: BLOOD SPECIMENOrdering Facility: [facility] Address: [address] [place] [address] Performed By: #### 2 4323-8, ####[facility] LABCLIA [id number] [place] [id number] [place] eGFRcr SerPlBld CKD-EPI 2020 47 mL/min/1.73m??? Low >=60 [facility] Comment on above: Order Comment: Speci men Type: BLOOD SPECIMENOrdering Facility: [facility] Address: [address] [place] [address] Result Comment: Gurwinder mated Glomerular Filtration Rate [...] actual GFR. Performed By: #### 2 4323-8, ####[facility] LABCLIA [id number] [address] [address] [place] Glucose [Mass/Vol] 296 mg/dL High 74-99 [facility] Comment on above: Order Comment: Speci men Type: BLOOD SPECIMENOrdering Facility: [facility] Address: [address] [place] [id number] Result Comment: The [place] [employer] (ADA) provides guidance for cutoff values for fasting glucose and random glucose. The ADA defines fasting as no caloric intake for at least 8 hours. Fasting plasma glucose results between 100 to 125 mg/dL indicate increased risk for diabetes (prediabetes).Fasting plasma glucose results greater than or equal to 126 mg/dL meet the criteria for diagnosis of diabetes. In the absence of unequivocal hyperglycemia, results should be confirmed by repeat testing. In a patient with classic symptoms of hyperglycemia or hyperglycemic crisis, random plasma glucose results greater than or equal to 200 mg/dL meet the criteria for diagnosis of diabetes.Reference: Standards of Medical Care in Diabetes 2016, [place] [employer]. Diabetes Care. 2016.39(Suppl 1). Performed By: #### 2 4323-8, ####[facility] LABCLIA [id number] [place] [address] [place] Potassium [Moles/Vol] 4.6 mmol/L Normal 3.7-5.1 [facility] Comment on above: Order Comment: Speci men Type: BLOOD SPECIMENOrdering Facility: [facility] Address: [address] [place] [address] Performed By: #### 2 4322-, ####[facility] LABIA [id number] [place] [address] [place] Protein [Mass/Vol] 5.2 g/dL Low 6.3-8.0 [facility] [place] Comment on above: Order Comment: Speci men Type: BLOOD SPECIMENOrdering Facility: [facility] Address: [address] [id number] Performed By: #### 2 4322-09, ####[facility] LABIA [id number] [place] [id number] [place] Sodium [Moles/Vol] 135 mmol/L Low 136-144 [facility] [place] Comment on above: Order Comment: Speci men Type: BLOOD SPECIMENOrdering Facility: [facility] Address: [address] [place], [place] [address] Performed By: #### 2 4323-8, ####[facility] LABIA [id number] [place] [id number] [place] Urea nitrogen [Mass/Vol] 23 mg/dL Normal 9-24 [facility] Comment on above: Order Comment: Speci men Type: BLOOD SPECIMENOrdering Facility: [facility] Address: [address] [place] [address] Performed By: #### 2 4323-8, ####[facility] LABIA [id number] [place] [address] [place] Albumin [Mass/Vol] 2.8 g/dL Low 3.9-4.9 [facility] Comment on above: Order Comment: Speci men Type: BLOOD SPECIMENOrdering Facility: [facility] Address: [address] [place] [address] Performed By: #### 2 4323-8, 03731-4, ####[facility] LABIA [id number] [place] [id number] [place] ALP [Catalytic activity/Vol] 132 U/L High 38-113 [facility] Comment on above: Order Comment: Speci men Type: BLOOD SPECIMENOrdering Facility: [facility] Address: [address] [place], [place] [address] Performed By: #### 2 4323-8, 09664-7, ####[facility] LABIA [id number] [address] [address] [place] ALT [Catalytic activity/Vol] 12 U/L Normal 10-54 [facility] Comment on above: Order Comment: Speci men Type: BLOOD SPECIMENOrdering Facility: [facility] Address: [address] [place], [place] [address] Performed By: #### 2 4323-8, 76587-9, ####[facility] LABCLIA [id number] [address] [address] [place] Anion gap [Moles/Vol] 12 mmol/L Normal 8-15 [facility] Comment on above: Order Comment: Speci men Type: BLOOD SPECIMENOrdering Facility: [facility] Address: [address] [place] [address] Performed By: #### 2 4323-8, 21441-6, ####[facility] LABCLIA [id number] [address] [address] [place] AST [Catalytic activity/Vol] 22 U/L Normal 14-40 [facility] Comment on above: Order Comment: Speci men Type: BLOOD SPECIMENOrdering Facility: [facility] Address: [address] [place] [address] Performed By: #### 2 4323-8, 16169-3, ####[facility] LABCLIA [id number] [address] [address] [place] Bilirubin [Mass/Vol] 0.2 mg/dL Normal 0.2-1.3 [facility] Comment on above: Order Comment: Speci men Type: BLOOD SPECIMENOrdering Facility: [facility] Address: [address] [place], [place] [address] Performed By: #### 2 4323-8, 81190-0, ####[facility] LABCLIA [id number] [address] [address] [place] Calcium [Mass/Vol] 8.1 mg/dL Low 8.5-10.2 [facility] Comment on above: Order Comment: Speci men Type: BLOOD SPECIMENOrdering Facility: [facility] Address: [address] [place], [place] [address] Performed By: #### 2 4323-8, 72515-7, ####[facility] LABCLIA [id number] [place] [id number] [place] Chloride [Moles/Vol] 104 mmol/L Normal 98-107 [facility] Comment on above: Order Comment: Speci men Type: BLOOD SPECIMENOrdering Facility: [facility] Address: [address] [place] [address] Performed By: #### 2 4323-8, 52934-5, 31335-0 ####[facility] LABIA [id number] [place] [id number] [place] CO2 [Moles/Vol] 23 mmol/L Normal 22-30 [facility] Comment on above: Order Comment: Speci men Type: BLOOD SPECIMENOrdering Facility: [facility] Address: [address] [place] [address] Performed By: #### 2 4323-8, 84128-9, 01721-6 ####[facility] LABIA [id number] [place] [address] [place] Creatinine [Mass/Vol] 1.54 mg/dL High 0.73-1.22 [facility] Comment on above: Order Comment: Speci men Type: BLOOD SPECIMENOrdering Facility: [facility] Address: [address] [place] [address] Performed By: #### 2 4323-8, 99498-1, ####[facility] LABIA [id number] [place] [address] [place] eGFRcr SerPlBld CKD-EPI 2020 51 mL/min/1.73m??? Low >=60 [facility] Comment on above: Order Comment: Speci men Type: BLOOD SPECIMENOrdering Facility: [facility] Address: [address] [place] [address] Result Comment: Gurwinder mated Glomerular Filtration Rate [...] actual GFR. Performed By: #### 2 4323-8, 48463-5, ####[facility] LABCLIA [id number] [facility] Avantis Medical SystemsDESK [id number], [place] [address] [place] Glucose [Mass/Vol] 164 mg/dL High 74-99 [facility] Comment on above: Order Comment: Gini nowak Type: BLOOD SPECIMENOrdering Facility: [facility] Address: [address] [phone] Result Comment: The [place] Diabetes Association (ADA) provides guidance for cutoff values for fasting glucose and random glucose. The ADA defines fasting as no caloric intake for at least 8 hours. Fasting plasma glucose results between 100 to 125 mg/dL indicate increased risk for diabetes (prediabetes).Fasting plasma glucose results greater than or equal to 126 mg/dL meet the criteria for diagnosis of diabetes. In the absence of unequivocal hyperglycemia, results should be confirmed by repeat testing. In a patient with classic symptoms of hyperglycemia or hyperglycemic crisis, random plasma glucose results greater than or equal to 200 mg/dL meet the criteria for diagnosis of diabetes.Reference: Standards of Medical Care in Diabetes 2016, [place] Diabetes Association. Diabetes Care. 2016.39(Suppl 1). Performed By: #### 2 4323-8, 44256-6, ####[facility] LABCLIA [id number] [facility] [id number] [place] [address] [place] Potassium [Moles/Vol] 4.4 mmol/L Normal 3.7-5.1 [facility] Comment on above: Order Comment: Gini nowak Type: BLOOD SPECIMENOrdering Facility: [facility] Address: [address] [place] [address] Performed By: #### 2 4323-8, 12252-1, ####[facility] LABCLIA [id number] [facility] AVENUEDESK [id number], [place] [address] [place] Protein [Mass/Vol] 5.3 g/dL Low 6.3-8.0 [facility] Comment on above: Order Comment: Speci men Type: BLOOD SPECIMENOrdering Facility: [facility] Address: [address] [place] [address] Performed By: #### 2 4323-8, 44804-6, ####[facility] LABCLIA [id number] [place] [id number] [place] Sodium [Moles/Vol] 139 mmol/L Normal 136-144 [facility] Comment on above: Order Comment: Speci men Type: BLOOD SPECIMENOrdering Facility: [facility] Address: [address] [place] [address] Performed By: #### 2 4323-8, 17232-1, ####[facility] LABCLIA [id number] [place] [address] [place] Urea nitrogen [Mass/Vol] 24 mg/dL Normal 9-24 [facility] Comment on above: Order Comment: Speci men Type: BLOOD SPECIMENOrdering Facility: [facility] Address: [address] [place] [address] Performed By: #### 2 4323-8, 21919-2, ####[facility] LABCLIA [id number] [place] [id number] [place] ECG COMPLETEon 10-18-2024 ECG COMPLETE Normal [facility] [id number] 10-18-2024 ECG01 Normal [facility] ECHO LIMITEDon 10-18-2024 ECHO LIMITED Normal [facility] Gas and Carbon monoxide pane l (BldV)on 10-18-2024 BASE DEFICIT, VENOUS >-1 Normal -2-0 [facility] Comment on above: Order Comment: Speci men Type: VENOUS BLOOD SPECIMENOrdering Facility: [facility] Address: [address] [place] [address] Performed By: #### 2 4344-4 ####[facility] LABCLIA [id number] [place] [address] [place] Body temperature 98.6 [degF] Normal [facility] Comment on above: Order Comment: Speci men Type: VENOUS BLOOD SPECIMENOrdering Facility: [facility] Address: [address] [place] [address] Performed By: #### 2 4344-4 ####[facility] LABCLIA [id number] [place] [address] [place] Calcium.ionized (Bld) [Mass/Vol] 1.15 mmol/L Normal 1.08-1.30 [facility] Comment on above: Order Comment: Speci men Type: VENOUS BLOOD SPECIMENOrdering Facility: [facility] Address: [address] [place] [address] Performed By: #### 2 4344-4 ####[facility] LABIA [id number] [place] [address] [place] Calcium.ionized adjusted to pH 7.4 (BldA) [Moles/Vol] 1.10 mmol/L Normal 1.08-1.30 [facility] Comment on above: Order Comment: Speci men Type: VENOUS BLOOD SPECIMENOrdering Facility: [facility] Address: [address] [place] [address] Performed By: #### 2 4344-4 ####[facility] LABIA [id number] [place] [address] [place] Carboxyhemoglobin (BldV) [Mass fraction] 0.9 % Normal 0.0-2.0 [facility] Comment on above: Order Comment: Speci men Type: VENOUS BLOOD SPECIMENOrdering Facility: [facility] Address: [address] [place] [address] Result Comment: Carb oxyhemoglobin Reference Range for Smokers: 2.0-8.0% Performed By: #### 2 4344-4 ####[facility] LABIA [id number] [address] [id number] [address] [place] CO2 (BldV) [Partial pressure] 53 mm[Hg] Normal 42-55 [facility] Comment on above: Order Comment: Speci men Type: VENOUS BLOOD SPECIMENOrdering Facility: [facility] Address: [address] [place] [address] Performed By: #### 2 4344-4 ####[facility] LABCLIA [id number] [address] [address] [id number] [place] Glucose [Mass/Vol] 254 mg/dL High 60-105 [facility] Comment on above: Order Comment: Speci men Type: VENOUS BLOOD SPECIMENOrdering Facility: [facility] Address: [address] [place] [address] Performed By: #### 2 4344-4 ####[facility] LABCLIA [id number] [address] [id number] [place] HCO3 (Bld) [Moles/Vol] 26 mmol/L Normal 24-[address] [facility] Comment on above: Order Comment: Speci men Type: VENOUS BLOOD SPECIMENOrdering Facility: [facility] Address: [address] [place] [address] Performed By: #### 2 4344-4 ####[facility] LABCLIA [id number] [address] [address] [id number] [place] Hematocrit (Bld) [Volume fraction] 27.3 % Low 39.0-51.0 [facility] Comment on above: Order Comment: Speci men Type: VENOUS BLOOD SPECIMENOrdering Facility: [facility] Address: [address] [place], [place] [address] Performed By: #### 2 4344-4 ####[facility] LABCLIA [id number] [address] [id number] [place] Hemoglobin (Bld) [Mass/Vol] 8.8 g/dL Low 13.0-17.0 [facility] Comment on above: Order Comment: Speci men Type: VENOUS BLOOD SPECIMENOrdering Facility: [facility] Address: [address] [phone] Performed By: #### 2 4344-4 ####[facility] LABCLIA [id number] [address] [address] [place] Lactate [Moles/Vol] 1.2 mmol/L Normal 0.5-2.2 [facility] Comment on above: Order Comment: Speci men Type: VENOUS BLOOD SPECIMENOrdering Facility: [facility] Address: [address] [place], [place] [address] Performed By: #### 2 4344-4 ####[facility] LABCLIA [id number] [place] [address] [place] LITERS 3 Liters/min Normal [facility] Comment on above: Order Comment: Speci men Type: VENOUS BLOOD SPECIMENOrdering Facility: [facility] Address: [address] [place], [place] [address] Performed By: #### 2 4344-4 ####[facility] LABCLIA [id number] [place] [address] [place] Methemoglobin (Bld) [Mass fraction] 1.3 % Normal 0.0-1.5 [facility] Comment on above: Order Comment: Speci men Type: VENOUS BLOOD SPECIMENOrdering Facility: [facility] Address: [address] [place], [place] [address] Performed By: #### 2 4344-4 ####[facility] LABCLIA [id number] [address] [address] [place] O2 THERAPY NC = Nasal Cannula Normal [facility] Comment on above: Order Comment: Speci men Type: VENOUS BLOOD SPECIMENOrdering Facility: [facility] Address: [address] [place], [place] [address] Performed By: #### 2 4344-4 ####[facility] LABCLIA [id number] [place] [id number] [place] Oxygen (BldV) [Partial pressure] 30 mm[Hg] Low 35-45 [facility] Comment on above: Order Comment: Speci men Type: VENOUS BLOOD SPECIMENOrdering Facility: [facility] Address: [address] [place] [address] Performed By: #### 2 4344-4 ####[facility] LABCLIA [id number] [place] [id number] [place] Oxygen saturation in Venous blood 45 % Low 60-85 [facility] Comment on above: Order Comment: Speci men Type: VENOUS BLOOD SPECIMENOrdering Facility: [facility] Address: [address] [place] [address] Performed By: #### 2 4344-4 ####[facility] LABCLIA [id number] [place] [id number] [place] Oxyhemoglobin (BldV) [Mass fraction] 44 % Low 60-85 [facility] Comment on above: Order Comment: Speci men Type: VENOUS BLOOD SPECIMENOrdering Facility: [facility] Address: [address] [place], [place] [address] Performed By: #### 2 4344-4 ####[facility] LABCLIA [id number] [place] [address] [place] pH (BldV) 7.31 [pH] Low 7.32-7.42 [facility] Comment on above: Order Comment: Speci men Type: VENOUS BLOOD SPECIMENOrdering Facility: [facility] Address: [address] [place], [place] [address] Performed By: #### 2 4344-4 ####[facility] LABCLIA [id number] [place] [id number] [place] Potassium [Moles/Vol] 4.3 mmol/L Normal 3.5-5.0 [facility] Comment on above: Order Comment: Speci men Type: VENOUS BLOOD SPECIMENOrdering Facility: [facility] Address: [address] [place] [address] [place] [address] Performed By: #### 2 4344-4 ####[facility] LABCLIA [id number] [address] [address] [place] Sodium [Moles/Vol] 133 mmol/L Low 136-144 [facility] Comment on above: Order Comment: Speci men Type: VENOUS BLOOD SPECIMENOrdering Facility: [facility] Address: [address] [place] [address] Performed By: #### 2 4344-4 ####[facility] LABIA [id number] [address] [address] [place] HISTORY PHYSICALon HISTORY PHYSICAL Normal [facility] HbA1c (Bld)on 10-18-2024 Average glucose Estimated from glycated hemoglobin (Bld) [Mass/Vol] 186 mg/dL Normal [facility] Comment on above: Order Comment: Speci men Type: BLOOD SPECIMENOrdering Facility: [facility] Address: [address] [place] [address] Result Comment: eAG: (Estimated average glucose) is a calculated value from HgbA1c and is clearance representative of the average blood glucose level in the last 2-3 month period. Performed By: #### 5 5454-3 ####[facility] LABIA [id number] [address] [address] [place] HbA1c (Bld) [Mass fraction] 8.1 % High 4.3-5.6 [facility] Comment on above: Order Comment: Speci men Type: BLOOD SPECIMENOrdering Facility: [facility] Address: [address] [place] [address] Result Comment: [place] Diabetes Association guidelines indicate that patients with HgbA1c in the range 5.7-6.4% are at increased risk for development of diabetes, and intervention by lifestyle modification may be beneficial. HgbA1c greater or equal to 6.5% is considered diagnostic of diabetes. Performed By: #### 5 5454-3 ####[facility] LABCLIA [id number] [address] [address] [place] LDH SerPl-cCncon 10-18-2024 LDH [Catalytic activity/Vol] 354 U/L High 135-225 [facility] Comment on above: Order Comment: Speci men Type: BLOOD SPECIMENOrdering Facility: [facility] Address: [address] [place], [place] [address] Performed By: #### 2 532-0, 2777-1, 3015-3, ####[facility] LABCLIA [id number] [address] [address] [place] Magnesium SerPl-mCncon 10-18 Magnesium [Mass/Vol] 1.7 mg/dL Normal 1.7-2.3 [facility] Comment on above: Order Comment: Speci men Type: BLOOD SPECIMENOrdering Facility: [facility] Address: [address] [place] [address] Performed By: #### 2 532-0, 2777-1, 3015-3, ####[facility] LABIA [id number] [address] [address] [place] Magnesium [Mass/Vol] 1.7 mg/dL Normal 1.7-2.3 [facility] Comment on above: Order Comment: Speci men Type: BLOOD SPECIMENOrdering Facility: [facility] Address: [address] [place], [place] [address] Performed By: #### 2 4323-8, ####[facility] LABCLIA [id number] [address] [address] [place] Magnesium [Mass/Vol] 1.7 mg/dL Normal 1.7-2.3 [facility] Comment on above: Order Comment: Speci men Type: BLOOD SPECIMENOrdering Facility: [facility] Address: [address] [place], [place] [address] Performed By: #### 2 4323-8, 92461-1, ####[facility] LABCLIA [id number] [address] NT-proBNP [facility] 10-18 Natriuretic peptide.B prohormone N-Terminal [Mass/Vol] >17052 High <125 [facility] Comment on above: Order Comment: Speci men Type: BLOOD SPECIMENOrdering Facility: [facility] Address: [address] [place] [address] Performed By: #### 2 4323-8, 14169-7, ####[facility] [id number] [address] [place] PT panel Coag (PPP)on 2024 INR Coag (PPP) [Relative time] 1.3 {INR} Normal 0.9-1.3 [facility] Comment on above: Order Comment: Speci men Type: BLOOD SPECIMENOrdering Facility: [facility] Address: [address] [place] [address] Result Comment: Nettie min K Antagonist (VKA) Therapeutic Range: INR 2 to 3 (Target INR of 2.5)Note: For patients treated with VKA drugs, such as warfarin, the [place] [employer] 2012 Guideline recommends a therapeutic INR range of 2 to 3 (target INR of 2.5). This recommendation includes high-risk patients with antiphospholipid syndrome with previous arterial or venous thromboembolism, current-generation mechanical or bioprosthetic aortic heart valve replacement.Note: Patients with mechanical aortic valve replacement and additional risk factors for thromboembolic events (atrial fibrillation, previous thromboembolism, LV dysfunction, hypercoagulable conditions) or an older generation mechanical AVR (i.e., ball in-Cage) or any mechanical MVR should have a INR therapeutic range of 2.5 to 3.5 (target INR of 3).Cecile GH, et al. Chest 2012, 141:7S-47SWilder JALLOH et al. [facility] 2017, 70: 252-289 Performed By: #### 3 4528-0, 65150-4 ####[facility] LABCLIA [id number] [place] [address] [place] PT Coag (PPP) [Time] 14.3 s High 9.7-13.0 [facility] Comment on above: Order Comment: Speci men Type: BLOOD SPECIMENOrdering Facility: [facility] Address: [address] [place] [address] Performed By: #### 3 4528-0, 01760-2 ####[facility] [id number] [address] [place] INR Coag (PPP) [Relative time] 1.4 {INR} High 0.9-1.3 [facility] Comment on above: Order Comment: Speci men Type: BLOOD SPECIMENOrdering Facility: [facility] Address: [address] [place] [address] Result Comment: Nettie min K Antagonist (VKA) Therapeutic Range: INR 2 to 3 (Target INR of 2.5)Note: For patients treated with VKA drugs, such as warfarin, the [place] [employer] 2012 Guideline recommends a therapeutic INR range of 2 to 3 (target INR of 2.5). This recommendation includes high-risk patients with antiphospholipid syndrome with previous arterial or venous thromboembolism, current-generation mechanical or bioprosthetic aortic heart valve replacement.Note: Patients with mechanical aortic valve replacement and additional risk factors for thromboembolic events (atrial fibrillation, previous thromboembolism, LV dysfunction, hypercoagulable conditions) or an older generation mechanical AVR (i.e., ball in-Cage) or any mechanical MVR should have a INR therapeutic range of 2.5 to 3.5 (target INR of 3).Cecile EMMANUEL, et al. Chest 2012, 141:7S-47SNishfelicia RA, et al. JACC 2017, 70: 252-289 Performed By: #### 3 4528-0 ####[facility] [id number] [place] [id number] [place] PT Coag (PPP) [Time] 14.7 s High 9.7-13.0 [facility] Comment on above: Order Comment: Speci men Type: BLOOD SPECIMENOrdering Facility: [facility] Address: [address] [place] [address] Performed By: #### 3 4528-0 ####[facility] LABIA [id number] [place] [address] [place] INR Coag (PPP) [Relative time] 1.3 {INR} Normal 0.9-1.3 [facility] Comment on above: Order Comment: Speci men Type: BLOOD SPECIMENOrdering Facility: [facility] Address: [address] [place] [address] Result Comment: Nettie min K Antagonist (VKA) Therapeutic Range: INR 2 to 3 (Target INR of 2.5)Note: For patients treated with VKA drugs, such as warfarin, the [place] [employer] 2012 Guideline recommends a therapeutic INR range of 2 to 3 (target INR of 2.5). This recommendation includes high-risk patients with antiphospholipid syndrome with previous arterial or venous thromboembolism, current-generation mechanical or bioprosthetic aortic heart valve replacement.Note: Patients with mechanical aortic valve replacement and additional risk factors for thromboembolic events (atrial fibrillation, previous thromboembolism, LV dysfunction, hypercoagulable conditions) or an older generation mechanical AVR (i.e., ball in-Cage) or any mechanical MVR should have a INR therapeutic range of 2.5 to 3.5 (target INR of 3).Cecile GH, et al. Chest 2012, 141:7S-47SNishfelicia RA, et al. [facility] 2017, 70: 252-289 Performed By: #### 3 4528-0 ####[facility] LABCLIA [id number] [place] [id number] [place] PT Coag (PPP) [Time] 14.0 s High 9.7-13.0 [facility] Comment on above: Order Comment: Speci men Type: BLOOD SPECIMENOrdering Facility: [facility] Address: [address] [place] [address] Performed By: #### 3 4528-0 ####[facility] LABCLIA [id number] [address] [address] [place] Phosphate SerPl-mCncon 10-18 Phosphate [Mass/Vol] 3.5 mg/dL Normal 2.7-4.8 [facility] Comment on above: Order Comment: Speci men Type: BLOOD SPECIMENOrdering Facility: [facility] Address: [address] [place] [address] Performed By: #### 2 532-0, 2777-1, 3016-3, 11106-9 ####[facility] LABCLIA [id number] [place] [id number] [place] THERAPY NTon 10-18-2024 THERAPY NT [facility] TSH SerPl-aCncon 10-18-2024 TSH Qn 4.370 m[IU]/L High 0.270-4.200 [facility] Comment on above: Order Comment: Speci men Type: BLOOD SPECIMENOrdering Facility: [facility] Address: [address] [place] [address] Performed By: #### 2 532-0, 2777-1, 6-3, ####[facility] LABCLIA [id number] [place] [address] [place] TYPE + SCREENon 10-18-2024 ABO O [facility] Comment on above: Order Comment: Speci men Type: BLOOD SPECIMENOrdering Facility: [facility] Address: [address] [place] [address] Performed By: #### T SCR ####CC MAIN BLOOD BANKCLIA [id number] [place] [address] [place] Rh Nom (Bld) Negative [facility] Comment on above: Order Comment: Speci men Type: BLOOD SPECIMENOrdering Facility: [facility] Address: [address] [place] [address] Performed By: #### T SCR ####CC MAIN BLOOD BANKCLIA [id number] [place] [id number] [place] TYPE AND SCREEN EXPIRATION 10/21/2024 23:59 [facility] Comment on above: Order Comment: Speci men Type: BLOOD SPECIMENOrdering Facility: [facility] Address: [address] [place] [address] Performed By: #### T SCR ####CC [facility] BLOOD BANKCLIA [id number] [place] [address] [place] XR CHEST 1V FRONTAL PORTon 0 10-18-2024 XR CHEST 1V FRONTAL PORT [facility] XR CHEST 1V FRONTAL PORT [facility] aPTT PPPon 10-18-2024 aPTT Coag (PPP) [Time] 35.3 s High 23.0-32.4 [facility] Comment on above: Order Comment: Speci men Type: BLOOD SPECIMENOrdering Facility: [facility] Address: [address] [place] [address] Performed By: #### 3 4528-0, 79488-2 ####[facility] LABCLIA [id number] [place] [address] [place] HISTORY PHYSICALon HISTORY PHYSICAL Normal [facility] Absolute lymphocyte countOrd ered By: Perez Ribeiro on 10-12-2024 Lymphocytes Auto (Unsp spec) [#/Vol] 0.94 10*3/uL 0.83-4.51 [facility] Activated partial thrombopla stin time (aPTT) in platelet poor plasma by coagulation aOrdered By: Perez Ribeiro on 10-12-2024 aPTT Coag (PPP) [Time] 29.0 s 24.1-36.2 [facility] Anion gap in Serum or Plasma Ordered By: Perez Ribeiro on 10-12-2024 Anion gap [Moles/Vol] 11 mmol/L 5-15 [facility] Automated lymphocyte count a s percentage of total leukocytesOrdered By: Perez Ribeiro on 10-12-2024 Lymphocytes/100 WBC Auto (Unsp spec) 20.8 % 19-41 [facility] BUN/creatinine ratioOrdered By: Perez Ribeiro on 10-12-2024 Urea nitrogen/Creatinine [Mass ratio] 10.7 mg/mg 10-20 [facility] Basophil percentageOrdered B y: Perez Ribeiro on 10-12-2024 Basophils/100 WBC (Bld) 2.0 % High 0-[address] [facility] Carbon dioxide, total [Moles /volume] in Central venous bloodOrdered By: Perez Ribeiro on 10-12-2024 CO2 [Moles/Vol] 22.2 mmol/L 21.0-32.0 [facility] Chloride assayOrdered By: Prosper Ribeiro on 10-12-2024 Chloride [Moles/Vol] 106 mmol/L 98-108 [facility] Eosinophil percentageOrdered By: Perez Ribeiro on 10-12-2024 Eosinophils/100 WBC (Bld) 1.5 % 0-5 [facility] Erythrocyte distribution wid th ratioOrdered By: Perez Ribeiro on 10-12-2024 Erythrocyte distribution width (RBC) [Ratio] 16.7 % High 11.6-14.6 [facility] Erythrocyte distribution wid th standard deviationOrdered By: Perez Ribeiro on 10-12-2024 Erythrocyte distribution width (RBC) [Ratio] 62.1 fl High 35.1-43.9 [facility] Glomerular filtration rate ( GFR) estimation/1.73 sq m using serum, plasma, or whole bOrdered By: Perez Ribeiro on 10-12-2024 GFR/1.73 sq M.predicted among non-blacks MDRD (S/P/Bld) [Vol rate/Area] 79 mL/min/{1.73_m2} >60 [facility] Hematocrit Auto (Bld) [Volum e fraction]Ordered By: Perez Ribeiro on 10-12-2024 Hematocrit (Bld) [Volume fraction] 34.4 % Low 40-54 [facility] Hemoglobin measurementOrdere d By: Perez Ribeiro on 10-12-2024 Hemoglobin (Bld) [Mass/Vol] 11.0 g/dL Low 13.0-16.5 [facility] Immature granulocytes/100 WB C Auto (Bld)Ordered By: Perez Ribeiro on 09-04-2025 Immature granulocytes/100 WBC (Bld) 0.400 % 0.0-0.9 [facility] MCV (mean corpuscular volume ) determinationOrdered By: Perez Ribeiro on 10-12-2024 MCV (RBC) [Entitic vol] 100.3 fL High 80-[address] [facility] Mean corpuscular hemoglobin (MCH) determinationOrdered By: Perez Ribeiro on 10-12-2024 MCH (RBC) [Entitic mass] 32.1 pg High 27.0-32.0 [facility] Monocyte percentageOrdered B y: Perez Ribeiro on 10-12-2024 Monocytes/100 WBC (Bld) 9.5 % 0-[address] [facility] Natriuretic peptide.B prohor irene N-Terminal [Mass/volume] in Serum or PlasmaOrdered By: Perez Ribeiro on 10-12-2024 Natriuretic peptide.B prohormone N-Terminal [Mass/Vol] 00644 pg/mL High <900 [facility] Neutrophil percentageOrdered By: Perez Ribeiro on 10-12-2024 Neutrophils/100 WBC (Bld) 65.8 % 47-70 [facility] Platelet countOrdered By: Prosper Ribeiro on 10-12-2024 Platelets (Bld) [#/Vol] 152 10*3/uL 150-450 [facility] Potassium measurement (mass/ volume)Ordered By: Perez Ribeiro on 10-12-2024 Potassium (Unsp spec) [Mass/Vol] 3.7 mmol/L 3.3-5.1 [facility] Prothrombin timeOrdered By: Perez Ribeiro on 10-12-2024 PT Coag (PPP) [Time] 17.4 s High 11.7-14.9 [facility] RBC Auto (Bld) [#/Vol]Ordere d By: Perez Ribeiro on 10-12-2024 RBC (Bld) [#/Vol] 3.43 10*6/uL Low 4.6-6.2 [facility] Serum creatinine measurement (mass/volume)Ordered By: Perez Ribeiro on 10-12-2024 Creatinine [Mass/Vol] 1.06 mg/dL 0.70-1.20 [facility] Serum glucose measurement (m ass/volume)Ordered By: Perez Ribeiro on 10-12-2024 Glucose [Mass/Vol] 241 mg/dL High 70-99 [facility] Serum or plasma calcium luciana urement (mass/volume)Ordered By: Perez Ribeiro on 10-12-2024 Calcium [Mass/Vol] 8.9 mg/dL 7.6-11.0 [facility] Serum or plasma urea nitroge n measurement (mass/volume)Ordered By: Perez Ribeiro on 10-12-2024 Urea nitrogen [Mass/Vol] 11 mg/dL 4-19 [facility] Sodium levelOrdered By: Beto Ribeiro on 10-12-2024 Sodium [Moles/Vol] 140 mmol/L 133-145 [facility] Troponin T.cardiac [Mass/vol ume] in Serum or Plasma by High sensitivity methodOrdered By: Perez Ribeiro on 10-12-2024 Troponin T.cardiac High sensitivity method [Mass/Vol] 83 ng/L High <22 [facility] Troponin T.cardiac High sensitivity method [Mass/Vol] 91 ng/L High <22 [facility] Troponin T.cardiac High sensitivity method [Mass/Vol] 105 ng/L High <22 [facility] White blood cell (WBC) count Ordered By: Perez Ribeiro on 10-12-2024 WBC (Bld) [#/Vol] 4.5 10*3/uL 4.4-11.0 [facility] Absolute lymphocyte countOrd ered By: Rafaela Welch on 10-06-2024 Lymphocytes Auto (Unsp spec) [#/Vol] 0.81 10*3/uL Low 0.83-4.51 [facility] Anion gap in Serum or Plasma Ordered By: Rafaela Welch on 10-06-2024 Anion gap [Moles/Vol] 10 mmol/L 5-15 [facility] Automated lymphocyte count a s percentage of total leukocytesOrdered By: Rafaela Welch on 10-06-2024 Lymphocytes/100 WBC Auto (Unsp spec) 16.0 % Low 19-41 [facility] BUN/creatinine ratioOrdered By: Rafaela Welch on 10-06-2024 Urea nitrogen/Creatinine [Mass ratio] 8.8 mg/mg Low 10-20 [facility] Basophil percentageOrdered B y: Rafaela Welch on 10-06-2024 Basophils/100 WBC (Bld) 1.4 % High 0-[address] [facility] Bilirubin directOrdered By: Rafaela Welch on 10-06-2024 Bilirubin.direct [Mass/Vol] 0.21 mg/dL 0.00-0.30 [facility] Bilirubin, totalOrdered By: Rafaela Welch on 10-06-2024 Bilirubin [Mass/Vol] 0.42 mg/dL 0.00-1.30 [facility] Carbon dioxide, total [Moles /volume] in Central venous bloodOrdered By: Rafaela Welch on 10-06-2024 CO2 [Moles/Vol] 21.6 mmol/L 21.0-32.0 [facility] Chloride assayOrdered By: Rosaura Welch on 10-06-2024 Chloride [Moles/Vol] 108 mmol/L 98-108 [facility] Eosinophil percentageOrdered By: Rafaela Welch on 10-06-2024 Eosinophils/100 WBC (Bld) 1.6 % 0-5 [facility] Erythrocyte distribution wid th ratioOrdered By: Rafaela Welch on 10-06-2024 Erythrocyte distribution width (RBC) [Ratio] 16.4 % High 11.6-14.6 [facility] Erythrocyte distribution wid th standard deviationOrdered By: Rafaela Welch on 10-06-2024 Erythrocyte distribution width (RBC) [Ratio] 62.4 fl High 35.1-43.9 [facility] Glomerular filtration rate ( GFR) estimation/1.73 sq m using serum, plasma, or whole bOrdered By: Rafaela Welch on 10-06-2024 GFR/1.73 sq M.predicted among non-blacks MDRD (S/P/Bld) [Vol rate/Area] 80 mL/min/{1.73_m2} >60 [facility] Hematocrit Auto (Bld) [Volum e fraction]Ordered By: Rafaela Welch on 10-06-2024 Hematocrit (Bld) [Volume fraction] 34.4 % Low 40-54 [facility] Hemoglobin measurementOrdere d By: Rafaela Welch on 10-06-2024 Hemoglobin (Bld) [Mass/Vol] 10.9 g/dL Low 13.0-16.5 [facility] Immature granulocytes/100 WB C Auto (Bld)Ordered By: Rafaela Welch on 10-06-2024 Immature granulocytes/100 WBC (Bld) 0.400 % 0.0-0.9 [facility] MCV (mean corpuscular volume ) determinationOrdered By: Rafaela Welch on 10-06-2024 MCV (RBC) [Entitic vol] 103.3 fL High 80-[address] [facility] Mean corpuscular hemoglobin (MCH) determinationOrdered By: Rafaela Welch on 10-06-2024 MCH (RBC) [Entitic mass] 32.7 pg High 27.0-32.0 [facility] Monocyte percentageOrdered B y: Rafaela Welch on 10-06-2024 Monocytes/100 WBC (Bld) 6.1 % 0-[address] [facility] Neutrophil percentageOrdered By: Rafaela Welch on 10-06-2024 Neutrophils/100 WBC (Bld) 74.5 % High 47-70 [facility] No Panel InformationOrdered By: Rafaela Welch on 10-06-2024 20 U/L <38 [facility] Platelet countOrdered By: Rosaura Welch on 10-06-2024 Platelets (Bld) [#/Vol] 140 10*3/uL Low 150-450 [facility] Potassium measurement (mass/ volume)Ordered By: Rafaela Welch on 10-06-2024 Potassium (Unsp spec) [Mass/Vol] 3.8 mmol/L 3.3-5.1 [facility] Prothrombin timeOrdered By: Rafaela Welch on 10-06-2024 PT Coag (PPP) [Time] 16.5 s High 11.7-14.9 [facility] RBC Auto (Bld) [#/Vol]Ordere d By: Rafaela Welch on 10-06-2024 RBC (Bld) [#/Vol] 3.33 10*6/uL Low 4.6-6.2 [facility] Serum creatinine measurement (mass/volume)Ordered By: Rafaela Welch on 10-06-2024 Creatinine [Mass/Vol] 1.05 mg/dL 0.70-1.20 [facility] Serum globulin measurementOr dered By: Rafaela Welch on 10-06-2024 Globulin (S) [Mass/Vol] 2.9 g/dL 2.2-4.2 [facility] Serum glucose measurement (m ass/volume)Ordered By: Rafaela Welch on 10-06-2024 Glucose [Mass/Vol] 279 mg/dL High 70-99 [facility] Serum or plasma alanine padilla otransferase (ALT) measurementOrdered By: Rafaela Welch on 10-06-2024 ALT [Catalytic activity/Vol] 12 U/L <47 [facility] Serum or plasma albumin luciana urement (mass/volume)Ordered By: Rafaela Welch on 10-06-2024 Albumin [Mass/Vol] 3.2 g/dL Low 3.4-4.8 [facility] Serum or plasma alkaline nolan sphatase measurementOrdered By: Rafaela Welch on 10-06-2024 ALP [Catalytic activity/Vol] 111 U/L 40-129 [facility] Serum or plasma calcium luciana urement (mass/volume)Ordered By: Rafaela Welch on 10-06-2024 Calcium [Mass/Vol] 8.7 mg/dL 7.6-11.0 [facility] Serum or plasma urea nitroge n measurement (mass/volume)Ordered By: Rafaela Welch on 10-06-2024 Urea nitrogen [Mass/Vol] 9 mg/dL 4-19 [facility] Sodium levelOrdered By: Rafaela Welch on 10-06-2024 Sodium [Moles/Vol] 140 mmol/L 133-145 [facility] Total proteinOrdered By: Indira Welch on 10-06-2024 Protein [Mass/Vol] 6.1 g/dL 5.9-8.4 [facility] White blood cell (WBC) count Ordered By: Rafaela Welch on 10-06-2024 WBC (Bld) [#/Vol] 5.1 10*3/uL 4.4-11.0 [facility] Absolute lymphocyte countOrd ered By: Lucas Frausto on 09-04-2024 Lymphocytes Auto (Unsp spec) [#/Vol] 1.20 10*3/uL 0.83-4.51 [facility] Anion gap in Serum or Plasma Ordered By: Lucas Frausto on 09-04-2024 Anion gap [Moles/Vol] 10 mmol/L 5-15 [facility] Automated lymphocyte count a s percentage of total leukocytesOrdered By: Lucas Frausto on 09-04-2024 Lymphocytes/100 WBC Auto (Unsp spec) 21.2 % 19-41 [facility] BUN/creatinine ratioOrdered By: Lucas Frausto on 09-04-2024 Urea nitrogen/Creatinine [Mass ratio] 15.4 mg/mg 10-20 [facility] Basophil percentageOrdered B y: Lucas Frausto on 09-04-2024 Basophils/100 WBC (Bld) 1.4 % High 0-[address] [facility] Blood manual differential co mment interpretation (narrative result)Ordered By: Lucas Frausto on 09-04-2024 Manual differential comment Jose Carlos (Bld) [Interp] SCANNED [facility] Carbon dioxide, total [Moles /volume] in Central venous bloodOrdered By: Lucas Frausto on 09-04-2024 CO2 [Moles/Vol] 21.3 mmol/L 21.0-32.0 [facility] Chloride assayOrdered By: Celi Frausto on 09-04-2024 Chloride [Moles/Vol] 105 mmol/L 98-108 [facility] Eosinophil percentageOrdered By: Lucas Frausto on 09-04-2024 Eosinophils/100 WBC (Bld) 1.6 % 0-5 [facility] Erythrocyte distribution wid th ratioOrdered By: Lucas Frausto on 09-04-2024 Erythrocyte distribution width (RBC) [Ratio] 14.4 % 11.6-14.6 [facility] Erythrocyte distribution wid th standard deviationOrdered By: Lucas Frausto on 09-04-2024 Erythrocyte distribution width (RBC) [Ratio] 55.8 fl High 35.1-43.9 [facility] Glomerular filtration rate ( GFR) estimation/1.73 sq m using serum, plasma, or whole bOrdered By: Lucas Frausto on 09-04-2024 GFR/1.73 sq M.predicted among non-blacks MDRD (S/P/Bld) [Vol rate/Area] 51 mL/min/{1.73_m2} Low >60 [facility] deOrdered By: Lucas Frausto on 09-04-2024 Glucose [Mass/Vol] 159 mg/dL High 74-106 [facility] Hematocrit Auto (Bld) [Volum e fraction]Ordered By: Lucas Frausto on 09-04-2024 Hematocrit (Bld) [Volume fraction] 27.8 % Low 40-54 [facility] Hemoglobin measurementOrdere d By: Lucas Frausto on 09-04-2024 Hemoglobin (Bld) [Mass/Vol] 8.7 g/dL Low 13.0-16.5 [facility] Immature granulocytes/100 WB C Auto (Bld)Ordered By: Lucas Frausto on 09-04-2024 Immature granulocytes/100 WBC (Bld) 0.500 % 0.0-0.9 [facility] MCV (mean corpuscular volume ) determinationOrdered By: Lucas Frausto on 09-04-2024 MCV (RBC) [Entitic vol] 106.1 fL High 80-[address] [facility] Mean corpuscular hemoglobin (MCH) determinationOrdered By: Lucas Frausto on 09-04-2024 MCH (RBC) [Entitic mass] 33.2 pg High 27.0-32.0 [facility] Monocyte percentageOrdered B y: Lucas Frausto on 09-04-2024 Monocytes/100 WBC (Bld) 9.5 % 0-[address] [facility] Neutrophil percentageOrdered By: Lucas Frausto on 09-04-2024 Neutrophils/100 WBC (Bld) 65.8 % 47-70 [facility] Platelet countOrdered By: Celi Frausto on 09-04-2024 Platelets (Bld) [#/Vol] 184 10*3/uL 150-450 [facility] Potassium measurement (mass/ volume)Ordered By: Lucas Frausto on 09-04-2024 Potassium (Unsp spec) [Mass/Vol] 5.8 mmol/L High 3.3-5.1 [facility] RBC Auto (Bld) [#/Vol]Ordere d By: Lucas Frausto on 09-04-2024 RBC (Bld) [#/Vol] 2.62 10*6/uL Low 4.6-6.2 [facility] SURG PATH REQUESTon 09-05-19 Case Report Normal [facility] Comment on above: Result Comment: Surg ical Pathology Report Case: [id number] Authorizing Provider: Barry Sheehan DO Collected: 09/04/2024 01:45 PM [facility]ing [facility] Received: 09/05/2024 05:09 PM [facility] Pathologist: Consuelo Noland MD Specimen: SURG PATH Performed By: #### S URGP #### [facility] (DEFAULT) [address] [place] [address] Clinical History Preop Diagnoses: Cirrhosis. 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 Recent pertinent laboratory data: 09/02/2024, ALT 13, AST 23, Alk Phos 141, TBili 0.17, Remaining lab results not available. Normal [facility] Comment on above: Performed By: #### S URGP #### [facility] (DEFAULT) [address] [place] [address] Diagnosis Comments Normal [facility] Comment on above: Result Comment: Ther e is mild large and small droplet macrovesicular steatosis without ballooning degeneration or Marian Denk bodies. Few portal areas show mild lymphocytic infiltrate with no interface activity. Bile ducts are present without significant damage or loss, and there is mild ductular proliferation at the interface (highlighted by CK7 immunostain). Some portal veins appear dilated. Trichrome stain highlights multifocal perisinusoidal fibrosis as well as periportal fibrosis with focal fibrous bridges. CK7 immunostain also shows periportal and centrilobular biliary metaplasia (GS immunostains performed to locate the centrilobular areas). 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 There is no evidence of steatohepatitis. Other stains performed to evaluate this case: Prussian Blue stain shows 1+ iron deposition in hepatocytes; PAS-D stain does not demonstrate intracytoplasmic inclusions. Dr. Rinku Carpenter reviewed selected digitized images. Performed By: #### S URGP #### [facility] (DEFAULT) [address] [place] [address] Gross Description Normal [facility] Comment on above: Result Comment: The specimen is received in one properly labeled container with the patient's name and accession number. A. The specimen is designated liver bx and consists of three hernandes-yellow soft tissue cores measuring in length ranging from 2.1 cm up to 2.2 cm, with an average diameter of 0.1 cm. TE 2 Lab Use Only: JobID [id number] Grosser for this case was: Diana Livingston Performed By: #### S URGP #### [facility] (DEFAULT) [address] [place] [address] Microscopic Description Normal [facility] Comment on above: Result Comment: A mi croscopic examination was performed. Trichrome stain, and CK7 and GS immunostains performed on tissue blocks A1 and A2. All controls show appropriate reactivity. All immunohistochemistry (IHC), in situ hybridization (GINA), and histochemical tests were developed by and are performed at the [facility], Histology and IHC Lab, [address] [place] [address]. All Immunofluorescent (IF) tests were developed by and are performed at the [facility], Renal Division, [address] [place] [address]. All tests reported here, except for PD-L1, have not been cleared by or approved by the [place] Food and Drug Administration (FDA). The laboratory is regulated under CLIA as qualified to perform high-complexity testing. The tests are used for clinical purposes. They should not be regarded as investigational or for research. Performed By: #### S URGP #### [facility] (DEFAULT) [address] [address] Pathologic Diagnosis [facility] Comment on above: Result Comment: Bree jj, biopsy: Mild Steatosis (25%), changes consistent with congestive hepatopathy with perisinusoidal- and periportal to bridging- fibrosis (F2 - F3) - See COMMENT. at 2203 EDT Performed By: #### S URGP #### [facility] (DEFAULT) [address] [address] Professional Interpretation Performed at: [facility] Comment on above: Result Comment: Prof essional interpretation performed remotely at a secondary location, address on file. For Immediate Release to [facility] [place] Performed By: #### S URGP #### [facility] (DEFAULT) [address] [address] Serum creatinine measurement (mass/volume)Ordered By: Lucas Frausto on 09-04-2024 Creatinine [Mass/Vol] 1.53 mg/dL High 0.70-1.20 [facility] Serum glucose measurement (m ass/volume)Ordered By: Lucas Frausto on 09-04-2024 Glucose [Mass/Vol] 110 mg/dL High 70-99 [facility] Serum or plasma calcium luciana urement (mass/volume)Ordered By: Lucas Frausto on 09-04-2024 Calcium [Mass/Vol] 8.6 mg/dL 7.6-11.0 [facility] Serum or plasma urea nitroge n measurement (mass/volume)Ordered By: Lucas Frausto on 09-04-2024 Urea nitrogen [Mass/Vol] 24 mg/dL High 4-19 [facility] Sodium levelOrdered By: Tone Frausto on 09-04-2024 Sodium [Moles/Vol] 136 mmol/L 133-145 [facility] White blood cell (WBC) count Ordered By: Lucas Frausto on 09-04-2024 WBC (Bld) [#/Vol] 5.7 10*3/uL 4.4-11.0 [facility] Bilirubin, totalOrdered By: Lucas Frausto on 09-02-2024 Bilirubin [Mass/Vol] 0.17 mg/dL 0.00-1.30 [facility] No Panel InformationOrdered By: Lucas Frausto on 09-02-2024 23 U/L <38 [facility] Serum globulin measurementOr dered By: Lucas Frausto on 09-02-2024 Globulin (S) [Mass/Vol] 2.8 g/dL 2.2-4.2 [facility] Serum or plasma alanine padilla otransferase (ALT) measurementOrdered By: Lucas Frausto on 09-02-2024 ALT [Catalytic activity/Vol] 13 U/L <47 [facility] Serum or plasma albumin luciana urement (mass/volume)Ordered By: Lucas Frausto on 09-02-2024 Albumin [Mass/Vol] 2.7 g/dL Low 3.4-4.8 [facility] Serum or plasma albumin/glob ulin mass ratioOrdered By: Lucas Frausto on 09-02-2024 Albumin/Globulin [Mass ratio] 1.0 {ratio} 0.9-2.4 [facility] Serum or plasma alkaline nolan sphatase measurementOrdered By: Lucas Frausto on 09-02-2024 ALP [Catalytic activity/Vol] 141 U/L High 40-129 [facility] Total proteinOrdered By: Silvestre Frausto on 09-02-2024 Protein [Mass/Vol] 5.5 g/dL Low 5.9-8.4 [facility] Activated partial thrombopla stin time (aPTT) in platelet poor plasma by coagulation aOrdered By: Barry Sheehan on 09-01-2024 aPTT Coag (PPP) [Time] 27.5 s 24.1-36.2 [facility] Amylase body fluidOrdered By : Barry Sheehan on 09-01-2024 Amylase (Body fld) [Catalytic activity/Vol] 16 U/L . [facility] Anaerobic cultureOrdered By: Barry Sheehan on 09-01-2024 Bacteria identified Anaer cx Nom (Unsp spec) No growth in 5 days. [facility] Body fluid albumin measureme nt by colorimetric method (mass/volume)Ordered By: Barry Sheehan on 09-01-2024 Albumin Ql (Body fld) 0.4 g/dL Not Estab. [facility] Body fluid appearance (nomin al result)Ordered By: Barry Sheehan on 09-01-2024 Appearance (Body fld) SL CLDY [facility] Body fluid color determinati onOrdered By: Barry Sheehan on 09-01-2024 Color (Body fld) PINK [facility] Body fluid cultureOrdered By : Barry Sheehan on 09-01-2024 Microbial culture, body fluid Culture exhibits no growth. [facility] Body fluid leukocytes count (number/volume)Ordered By: Barry Sheehan on 09-01-2024 WBC (Body fld) [#/Vol] 0.156 10*3/uL [facility] Body fluid lymphocytes/100 l eukocytesOrdered By: Barry Sheehan on 09-01-2024 Lymphocytes/100 WBC (Body fld) 36 % [facility] Body fluid macrophage countO rdered By: Barry Sheehan on 09-01-2024 Macrophages (Body fld) [#/Vol] 19 % [facility] Body fluid mononuclear cell percentageOrdered By: Barry Sheehan on 09-01-2024 Mononuclear cells/100 WBC (Body fld) 73.1 % [facility] Body fluid protein measureme nt (mass/volume)Ordered By: Barry Sheehan on 09-01-2024 Protein (Body fld) [Mass/Vol] 0.9 g/dL Not Establ. [facility] Body fluid segmented neutrop hils count (number/volume)Ordered By: Barry Sheehan on 09-01-2024 Segmented neutrophils (Body fld) [#/Vol] 38 % [facility] Body fluid total cell countO rdered By: Barry Sheehan on 09-01-2024 Cells Counted Total (Body fld) [#] 0.169 10^3/ul [facility] Cytology report of Body flui d Cyto stainOrdered By: Barry Sheehan on 09-01-2024 Cytology report Cyto stain Doc (Body fld) SEE PATHOLOGY REPORT [facility] Gram stainOrdered By: Barry Sheehan on 09-01-2024 Microscopic observation Gram stain Nom (Unsp spec) [facility] Monocyte detectionOrdered By : Barry Sheehan on 09-01-2024 Monocytes/100 WBC (Bld) 7 % [facility] No Panel InformationOrdered By: Barry Sheehan on 09-01-2024 5085 /mm3 [facility] SEE COMMENT [facility] Pathologist interpretation o f Body fluid testsOrdered By: Barry Sheehan on 09-01-2024 Pathologist interpretation (Body fld) [Interp] Reviewed [facility] Prothrombin timeOrdered By: Barry Sheehan on 09-01-2024 PT Coag (PPP) [Time] 15.6 s High 11.7-14.9 [facility] Specimen source identificati on of body fluidOrdered By: Barry Sheehan on 09-01-2024 Specimen source Nom (Body fld) ASCITES FLUID [facility] Platelet estimateOrdered By: Lucas Frausto on 08-31-2024 Platelets LM Ql (Bld) A ADEQ [facility] Body fluid lactate dehydroge nase measurement (enzymatic activity/volume) by pyruvateOrdered By: Lucas Frausto on 08-30-2024 LDH Pyruvate to lactate reaction (Body fld) [Catalytic activity/Vol] 84 Units/L Not Establ. [facility] Body fluid mesothelial cell percentageOrdered By: Lucas Frausto on 08-30-2024 Mesothelial cells/100 WBC (Body fld) 6 % [facility] Absolute lymphocyte countOrd ered By: Vinh Lomeli on 08-28-2024 Lymphocytes Auto (Unsp spec) [#/Vol] 1.03 10*3/uL 0.83-4.51 [facility] Anion gap in Serum or Plasma Ordered By: Vinh Lomeli on 08-28-2024 Anion gap [Moles/Vol] 13 mmol/L 5-15 [facility] Automated lymphocyte count a s percentage of total leukocytesOrdered By: Vinh Lomeli on 08-28-2024 Lymphocytes/100 WBC Auto (Unsp spec) 21.3 % 19-41 [facility] BUN/creatinine ratioOrdered By: Vinh Lomeli on 08-28-2024 Urea nitrogen/Creatinine [Mass ratio] 7.3 mg/mg Low 10-20 [facility] Basophil percentageOrdered B y: Vinh Lomeli on 08-28-2024 Basophils/100 WBC (Bld) 1.2 % High 0-[address] [facility] Bilirubin Test strip Ql (U)O rdered By: Vinh Lomeli on 08-28-2024 Bilirubin Ql (U) Negative Negative [facility] Carbon dioxide, total [Moles /volume] in Central venous bloodOrdered By: Vinh Lomeli on 08-28-2024 CO2 [Moles/Vol] 21.9 mmol/L 21.0-32.0 [facility] Chloride assayOrdered By: Garfield Lomeli on 08-28-2024 Chloride [Moles/Vol] 102 mmol/L 98-108 [facility] Eosinophil percentageOrdered By: Vinh Lomeli on 08-28-2024 Eosinophils/100 WBC (Bld) 1.4 % 0-5 [facility] Erythrocyte distribution wid th ratioOrdered By: Vinh Lomeli on 08-28-2024 Erythrocyte distribution width (RBC) [Ratio] 13.8 % 11.6-14.6 [facility] Erythrocyte distribution wid th standard deviationOrdered By: Vinh Lomeli on 08-28-2024 Erythrocyte distribution width (RBC) [Ratio] 53.1 fl High 35.1-43.9 [facility] Glomerular filtration rate ( GFR) estimation/1.73 sq m using serum, plasma, or whole bOrdered By: Vinh Lomeli on 08-28-2024 GFR/1.73 sq M.predicted among non-blacks MDRD (S/P/Bld) [Vol rate/Area] 76 mL/min/{1.73_m2} >60 [facility] Hematocrit Auto (Bld) [Volum e fraction]Ordered By: Vinh Lomeli on 08-28-2024 Hematocrit (Bld) [Volume fraction] 31.6 % Low 40-54 [facility] Hemoglobin measurementOrdere d By: Vinh Lomeli on 08-28-2024 Hemoglobin (Bld) [Mass/Vol] 10.1 g/dL Low 13.0-16.5 [facility] Immature granulocytes/100 WB C Auto (Bld)Ordered By: Vinh Lomeli on 08-28-2024 Immature granulocytes/100 WBC (Bld) 0.200 % 0.0-0.9 [facility] Ketones Test strip Ql (U)Ord ered By: Vinh Lomeli on 08-28-2024 Ketones Ql (U) Negative Negative [facility] MCV (mean corpuscular volume ) determinationOrdered By: Vinh Lomeli on 08-28-2024 MCV (RBC) [Entitic vol] 105.3 fL High 80-[address] [facility] Mean corpuscular hemoglobin (MCH) determinationOrdered By: Vinh Lomeli on 08-28-2024 MCH (RBC) [Entitic mass] 33.7 pg High 27.0-32.0 [facility] Monocyte percentageOrdered B y: Vinh Lomeli on 08-28-2024 Monocytes/100 WBC (Bld) 7.6 % 0-[address] [facility] Mucus LM Ql (Urine sed)Order ed By: Vinh Lomeli on 08-28-2024 Mucus Ql (Urine sed) 0 SEEN /hpf [facility] Neutrophil percentageOrdered By: Vinh Lomeli on 08-28-2024 Neutrophils/100 WBC (Bld) 68.3 % 47-70 [facility] Nitrite Test strip Ql (U)Ord ered By: Vinh Lomeli on 08-28-2024 Nitrite Ql (U) Negative Negative [facility] Platelet countOrdered By: Garfield Lomeli on 08-28-2024 Platelets (Bld) [#/Vol] 181 10*3/uL 150-450 [facility] Potassium measurement (mass/ volume)Ordered By: Vinh Lomeli on 08-28-2024 Potassium (Unsp spec) [Mass/Vol] 3.1 mmol/L Low 3.3-5.1 [facility] Protein Test strip Ql (U)Ord ered By: Vinh Lomeli on 08-28-2024 Protein Ql (U) Negative Negative [facility] RBC Auto (Bld) [#/Vol]Ordere d By: Vinh Lomeli on 08-28-2024 RBC (Bld) [#/Vol] 3.00 10*6/uL Low 4.6-6.2 [facility] Serum creatinine measurement (mass/volume)Ordered By: Vinh Lomeli on 08-28-2024 Creatinine [Mass/Vol] 1.10 mg/dL 0.70-1.20 [facility] Serum glucose measurement (m ass/volume)Ordered By: Vinh Lomeli on 08-28-2024 Glucose [Mass/Vol] 369 mg/dL High 70-99 [facility] Serum or plasma calcium luciana urement (mass/volume)Ordered By: Vinh Lomeli on 08-28-2024 Calcium [Mass/Vol] 8.0 mg/dL 7.6-11.0 [facility] Serum or plasma urea nitroge n measurement (mass/volume)Ordered By: Vinh Lomeli on 08-28-2024 Urea nitrogen [Mass/Vol] 8 mg/dL 4-19 [facility] Sodium levelOrdered By: Vinh Lomeli on 08-28-2024 Sodium [Moles/Vol] 137 mmol/L 133-145 [facility] Squamous epithelial cells de tection in urine sediment by light microscopyOrdered By: Vinh Lomeli on 08-28-2024 Epithelial cells.squamous LM Ql (Urine sed) 0 SEEN /hpf 0-5 [facility] Troponin T.cardiac [Mass/vol ume] in Serum or Plasma by High sensitivity methodOrdered By: Vinh Lomeli on 08-28-2024 Troponin T.cardiac High sensitivity method [Mass/Vol] 57 ng/L High <22 [facility] Troponin T.cardiac High sensitivity method [Mass/Vol] 67 ng/L High <22 [facility] Urine clarityOrdered By: Jasvir Lomeli on 08-28-2024 Clarity (U) Clear Clear [facility] Urine color determinationOrd ered By: Vinh Lomeli on 08-28-2024 Color (U) Straw Yellow [facility] Urine glucose detectionOrder ed By: Vinh Lomeli on 08-28-2024 Glucose Ql (U) 1000 mg/dl High Normal [facility] Urine leukocyte esterase det ection by dipstickOrdered By: Vinh Lomeli on 08-28-2024 Leukocyte esterase Test strip Ql (U) Negative Negative [facility] Urine pHOrdered By: Vinh chaidez on 08-28-2024 pH (U) 7.0 [pH] 5.0 - 8.0 [facility] Urine sediment bacteria coun t by microscopy (number/high power field)Ordered By: Vinh Lomeli on 08-28-2024 Bacteria LM.HPF (Urine sed) [#/Area] 0 /[HPF] None Seen [facility] Urine specific gravity measu rementOrdered By: Vinh Lomeli on 08-28-2024 Specific gravity (U) [Rel density] 1.010 1.002-1.030 [facility] Urine urobilinogen measureme ntOrdered By: Vinh Lomeli on 08-28-2024 Urobilinogen Ql (U) Normal mg/dl Normal [facility] White blood cell (WBC) count Ordered By: Vinh Lomeli on 08-28-2024 WBC (Bld) [#/Vol] 4.8 10*3/uL 4.4-11.0 [facility] White blood cell countOrdere d By: Vinh Lomeli on 08-28-2024 White blood cell count 0-5 SEEN /hpf 0-5 [facility] Absolute lymphocyte countOrd ered By: Valeriy Connell on 08-03-2024 Lymphocytes Auto (Unsp spec) [#/Vol] 0.89 10*3/uL 0.83-4.51 [facility] Anion gap in Serum or Plasma Ordered By: Valeriy Connell on 08-03-2024 Anion gap [Moles/Vol] 8 mmol/L 5-15 [facility] Automated lymphocyte count a s percentage of total leukocytesOrdered By: Valeriy Connell on 08-03-2024 Lymphocytes/100 WBC Auto (Unsp spec) 21.3 % 19-41 [facility] BUN/creatinine ratioOrdered By: Valeriy Connell on 08-03-2024 Urea nitrogen/Creatinine [Mass ratio] 10.4 mg/mg 10-20 [facility] Basophil percentageOrdered B y: Valeriy Connell on 08-03-2024 Basophils/100 WBC (Bld) 1.2 % High 0-[address] [facility] Carbon dioxide, total [Moles /volume] in Central venous bloodOrdered By: Valeriy Connell on 08-03-2024 CO2 [Moles/Vol] 23.3 mmol/L 21.0-32.0 [facility] Chloride assayOrdered By: Alex Connell on 08-03-2024 Chloride [Moles/Vol] 107 mmol/L 98-108 [facility] Eosinophil percentageOrdered By: Valeriy Connlel on 08-03-2024 Eosinophils/100 WBC (Bld) 2.2 % 0-5 [facility] Erythrocyte distribution wid th ratioOrdered By: Valeriy Connell on 08-03-2024 Erythrocyte distribution width (RBC) [Ratio] 14.4 % 11.6-14.6 [facility] Erythrocyte distribution wid th standard deviationOrdered By: Valeriy Connell on 08-03-2024 Erythrocyte distribution width (RBC) [Ratio] 58.9 fl High 35.1-43.9 [facility] Glomerular filtration rate ( GFR) estimation/1.73 sq m using serum, plasma, or whole bOrdered By: Valeriy Connell on 08-03-2024 GFR/1.73 sq M.predicted among non-blacks MDRD (S/P/Bld) [Vol rate/Area] 58 mL/min/{1.73_m2} Low >60 [facility] Gl[facility] deOrdered By: Valeriy Connell on 08-03-2024 Glucose [Mass/Vol] 304 mg/dL High 74-106 [facility] Hematocrit Auto (Bld) [Volum e fraction]Ordered By: Valeriy Connell on 08-03-2024 Hematocrit (Bld) [Volume fraction] 29.3 % Low 40-54 [facility] Hemoglobin measurementOrdere d By: Valeriy Connell on 08-03-2024 Hemoglobin (Bld) [Mass/Vol] 9.3 g/dL Low 13.0-16.5 [facility] Immature granulocytes/100 WB C Auto (Bld)Ordered By: Valeriy Connell on 08-03-2024 Immature granulocytes/100 WBC (Bld) 0.200 % 0.0-0.9 [facility] MCV (mean corpuscular volume ) determinationOrdered By: Valeriy Connell on 08-03-2024 MCV (RBC) [Entitic vol] 110.6 fL High 80-[address] [facility] Mean corpuscular hemoglobin (MCH) determinationOrdered By: Valeriy Connell on 08-03-2024 MCH (RBC) [Entitic mass] 35.1 pg High 27.0-32.0 [facility] Monocyte percentageOrdered B y: Valeriy Connell on 08-03-2024 Monocytes/100 WBC (Bld) 10.6 % High 0-[address] [facility] Neutrophil percentageOrdered By: Valeriy Connell on 08-03-2024 Neutrophils/100 WBC (Bld) 64.5 % 47-70 [facility] Platelet countOrdered By: Alex Connell on 08-03-2024 Platelets (Bld) [#/Vol] 147 10*3/uL Low 150-450 [facility] Potassium measurement (mass/ volume)Ordered By: Valeriy Connell on 08-03-2024 Potassium (Unsp spec) [Mass/Vol] 4.4 mmol/L 3.3-5.1 [facility] RBC Auto (Bld) [#/Vol]Ordere d By: Valeriy Connell on 08-03-2024 RBC (Bld) [#/Vol] 2.65 10*6/uL Low 4.6-6.2 [facility] Serum creatinine measurement (mass/volume)Ordered By: Valeriy Connell on 08-03-2024 Creatinine [Mass/Vol] 1.38 mg/dL High 0.70-1.20 [facility] Serum glucose measurement (m ass/volume)Ordered By: Valeriy Connell on 08-03-2024 Glucose [Mass/Vol] 151 mg/dL High 70-99 [facility] Serum or plasma calcium luciana urement (mass/volume)Ordered By: Valeriy Connell on 08-03-2024 Calcium [Mass/Vol] 8.0 mg/dL 7.6-11.0 [facility] Serum or plasma urea nitroge n measurement (mass/volume)Ordered By: Valeriy Connell on 08-03-2024 Urea nitrogen [Mass/Vol] 14 mg/dL 4-19 [facility] Sodium levelOrdered By: Valeriy Connell on 08-03-2024 Sodium [Moles/Vol] 139 mmol/L 133-145 [facility] White blood cell (WBC) count Ordered By: Valeriy Connell on 08-03-2024 WBC (Bld) [#/Vol] 4.2 10*3/uL Low 4.4-11.0 [facility] Bilirubin, totalOrdered By: Iman Aguayo on 08-02-2024 Bilirubin [Mass/Vol] 0.31 mg/dL 0.00-1.30 [facility] Calculated very low density lipoprotein (VLDL) cholesterol measurementOrdered By: Iman Aguayo on 08-02-2024 Calculated very low density lipoprotein (VLDL) cholesterol measurement 26 mg/dL 5-40 [facility] Electrocardiogram reportOrde red By: Trung Bob on 08-02-2024 EKG study [facility] Work Phone: LDL calc ser/plasOrdered By: Iman Aguayo on 08-02-2024 Cholesterol in LDL [Mass/Vol] 41 mg/dL [facility] No Panel InformationOrdered By: Iman Aguayo on 08-02-2024 35 U/L <38 [facility] Serum globulin measurementOr dered By: Iman Aguayo on 08-02-2024 Globulin (S) [Mass/Vol] 2.6 g/dL 2.2-4.[address] [facility] Serum or plasma alanine padilla otransferase (ALT) measurementOrdered By: Iman Aguayo on 08-02-2024 ALT [Catalytic activity/Vol] 13 U/L <47 [facility] Serum or plasma albumin luciana urement (mass/volume)Ordered By: Iman Aguayo on 08-02-2024 Albumin [Mass/Vol] 2.6 g/dL Low 3.4-4.8 [facility] Serum or plasma albumin/glob ulin mass ratioOrdered By: Iman Aguayo on 08-02-2024 Albumin/Globulin [Mass ratio] 1.0 {ratio} 0.9-2.4 [facility] Serum or plasma alkaline nolan sphatase measurementOrdered By: Iman Aguayo on 08-02-2024 ALP [Catalytic activity/Vol] 101 U/L 40-129 [facility] Serum or plasma cholesterol in HDL measurement (mass/volume)Ordered By: Iman Aguayo on 08-02-2024 Cholesterol in HDL [Mass/Vol] 33 mg/dL Low >40 [facility] Serum or plasma cholesterol measurement (mass/volume)Ordered By: Iman Aguayo on 08-02-2024 Cholesterol [Mass/Vol] 100 mg/dL <201 [facility] TSH DL <= 0.005 mIU/L QnOrde red By: Iman Aguayo on 08-02-2024 TSH Qn 2.140 uIU/mL 0.300-4.200 [facility] Total proteinOrdered By: Aut umn Olivier on 08-02-2024 Protein [Mass/Vol] 5.1 g/dL Low 5.9-8.4 [facility] Troponin T.cardiac [Mass/vol ume] in Serum or Plasma by High sensitivity methodOrdered By: Iman Aguayo on 08-02-2024 Troponin T.cardiac High sensitivity method [Mass/Vol] 95 ng/L High <22 [facility] Troponin T.cardiac High sensitivity method [Mass/Vol] 106 ng/L High <22 [facility] Absolute lymphocyte countOrd ered By: Tierney Macdonald on 08-01-2024 Lymphocytes Auto (Unsp spec) [#/Vol] 0.87 10*3/uL 0.83-4.51 [facility] Anion gap in Serum or Plasma Ordered By: Tierney Macdonald on 08-01-2024 Anion gap [Moles/Vol] 16 mmol/L High 5-15 [facility] Automated lymphocyte count a s percentage of total leukocytesOrdered By: Tierney Macdonald on 08-01-2024 Lymphocytes/100 WBC Auto (Unsp spec) 16.1 % Low 19-41 [facility] BUN/creatinine ratioOrdered By: Tierney Macdonald on 08-01-2024 Urea nitrogen/Creatinine [Mass ratio] 7.7 mg/mg Low 10-20 [facility] Basophil percentageOrdered B y: Tierney Macdonald on 08-01-2024 Basophils/100 WBC (Bld) 1.3 % High 0-[address] [facility] Bilirubin, totalOrdered By: Tierney Macdonald on 08-01-2024 Bilirubin [Mass/Vol] 0.37 mg/dL 0.00-1.30 [facility] Carbon dioxide, total [Moles /volume] in Central venous bloodOrdered By: Tierney Macdonald on 08-01-2024 CO2 [Moles/Vol] 18.6 mmol/L Low 21.0-32.0 [facility] Chloride assayOrdered By: Sudeep Macdonald on 08-01-2024 Chloride [Moles/Vol] 103 mmol/L 98-108 [facility] Eosinophil percentageOrdered By: Tierney Macdonald on 08-01-2024 Eosinophils/100 WBC (Bld) 0.9 % 0-5 [facility] Erythrocyte distribution wid th ratioOrdered By: Tierney Macdonald on 08-01-2024 Erythrocyte distribution width (RBC) [Ratio] 14.3 % 11.6-14.6 [facility] Erythrocyte distribution wid th standard deviationOrdered By: Tierney Macdonald on 08-01-2024 Erythrocyte distribution width (RBC) [Ratio] 58.4 fl High 35.1-43.9 [facility] Glomerular filtration rate ( GFR) estimation/1.73 sq m using serum, plasma, or whole bOrdered By: Tierney Macdonald on 08-01-2024 GFR/1.73 sq M.predicted among non-blacks MDRD (S/P/Bld) [Vol rate/Area] 70 mL/min/{1.73_m2} >60 [facility] Hematocrit Auto (Bld) [Volum e fraction]Ordered By: Tierney Macdonald on 08-01-2024 Hematocrit (Bld) [Volume fraction] 34.0 % Low 40-54 [facility] Hemoglobin measurementOrdere d By: Tierney Macdonald on 08-01-2024 Hemoglobin (Bld) [Mass/Vol] 11.0 g/dL Low 13.0-16.5 [facility] Immature granulocytes/100 WB C Auto (Bld)Ordered By: Tierney Macdonald on 08-01-2024 Immature granulocytes/100 WBC (Bld) 0.400 % 0.0-0.9 [facility] MCV (mean corpuscular volume ) determinationOrdered By: Tierney Macdonald on 08-01-2024 MCV (RBC) [Entitic vol] 110.4 fL High 80-[address] [facility] Magnesium measurement (mass/ volume)Ordered By: Iman Aguayo on 08-01-2024 Magnesium (Unsp spec) [Mass/Vol] 2.2 mg/dL 1.5-2.2 [facility] Mean corpuscular hemoglobin (MCH) determinationOrdered By: Tierney Macdonald on 08-01-2024 MCH (RBC) [Entitic mass] 35.7 pg High 27.0-32.0 [facility] Monocyte percentageOrdered B y: Tierney Macdonald on 08-01-2024 Monocytes/100 WBC (Bld) 8.0 % 0-[address] [facility] Natriuretic peptide.B prohor irene N-Terminal [Mass/volume] in Serum or PlasmaOrdered By: Tierney Macdonald on 08-01-2024 Natriuretic peptide.B prohormone N-Terminal [Mass/Vol] 16467 pg/mL High <900 [facility] Neutrophil percentageOrdered By: Tierney Macdonald on 08-01-2024 Neutrophils/100 WBC (Bld) 73.3 % High 47-70 [facility] No Panel InformationOrdered By: Tierney Macdonald on 08-01-2024 48 U/L High <38 [facility] Platelet countOrdered By: Sudeep Macdonald on 08-01-2024 Platelets (Bld) [#/Vol] 189 10*3/uL 150-450 [facility] Potassium measurement (mass/ volume)Ordered By: Tierney Macdonald on 08-01-2024 Potassium (Unsp spec) [Mass/Vol] 3.8 mmol/L 3.3-5.1 [facility] RBC Auto (Bld) [#/Vol]Ordere d By: Tierney Macdonald on 08-01-2024 RBC (Bld) [#/Vol] 3.08 10*6/uL Low 4.6-6.2 [facility] Serum creatinine measurement (mass/volume)Ordered By: Tierney Macdonald on 08-01-2024 Creatinine [Mass/Vol] 1.17 mg/dL 0.70-1.20 [facility] Serum globulin measurementOr dered By: Tierney Macdonald on 08-01-2024 Globulin (S) [Mass/Vol] 3.3 g/dL 2.2-4.2 [facility] Serum glucose measurement (m ass/volume)Ordered By: Tierney Macdonald on 08-01-2024 Glucose [Mass/Vol] 159 mg/dL High 70-99 [facility] Serum or plasma alanine padilla otransferase (ALT) measurementOrdered By: Tierney Macdonald on 08-01-2024 ALT [Catalytic activity/Vol] 20 U/L <47 [facility] Serum or plasma albumin luciana urement (mass/volume)Ordered By: Tierney Macdonald on 08-01-2024 Albumin [Mass/Vol] 3.0 g/dL Low 3.4-4.8 [facility] Serum or plasma albumin/glob ulin mass ratioOrdered By: Tierney Macdonald on 08-01-2024 Albumin/Globulin [Mass ratio] 0.9 {ratio} 0.9-2.4 [facility] Serum or plasma alkaline nolan sphatase measurementOrdered By: Tierney Macdonald on 08-01-2024 ALP [Catalytic activity/Vol] 121 U/L 40-129 [facility] Serum or plasma calcium luciana urement (mass/volume)Ordered By: Tierney Macdonald on 08-01-2024 Calcium [Mass/Vol] 8.4 mg/dL 7.6-11.0 [facility] Serum or plasma urea nitroge n measurement (mass/volume)Ordered By: Tierney Macdonald on 08-01-2024 Urea nitrogen [Mass/Vol] 9 mg/dL 4-19 [facility] Sodium levelOrdered By: Alanis Macdonald on 08-01-2024 Sodium [Moles/Vol] 137 mmol/L 133-145 [facility] Total proteinOrdered By: Adrianna Macdonald on 08-01-2024 Protein [Mass/Vol] 6.3 g/dL 5.9-8.4 [facility] Troponin T.cardiac [Mass/vol ume] in Serum or Plasma by High sensitivity methodOrdered By: Iman Aguayo on 08-01-2024 Troponin T.cardiac High sensitivity method [Mass/Vol] 96 ng/L High <22 [facility] White blood cell (WBC) count Ordered By: Tierney Macdonald on 08-01-2024 WBC (Bld) [#/Vol] 5.4 10*3/uL 4.4-11.0 [facility] Glucose measurement at [facility] deOrdered By: Conrado Morel on 07-14-2024 Glucose [Mass/Vol] 235 mg/dL High 74-106 [facility] Absolute lymphocyte countOrd ered By: Conrado Morel on 07-13-2024 Lymphocytes Auto (Unsp spec) [#/Vol] 1.06 10*3/uL 0.83-4.51 [facility] Anion gap in Serum or Plasma Ordered By: Conrado Morel on 07-13-2024 Anion gap [Moles/Vol] 11 mmol/L 5-15 [facility] Automated lymphocyte count a s percentage of total leukocytesOrdered By: Conrado Morel on 07-13-2024 Lymphocytes/100 WBC Auto (Unsp spec) 16.6 % Low 19-41 [facility] BUN/creatinine ratioOrdered By: Conrado Morel on 07-13-2024 Urea nitrogen/Creatinine [Mass ratio] 6.7 mg/mg Low 10-20 [facility] Basophil percentageOrdered B y: Conrado Morel on 07-13-2024 Basophils/100 WBC (Bld) 0.9 % 0-[address] [facility] Carbon dioxide, total [Moles /volume] in Central venous bloodOrdered By: Conrado Morel on 07-13-2024 CO2 [Moles/Vol] 21.2 mmol/L 21.0-32.0 [facility] Chloride assayOrdered By: Lauri Morel on 07-13-2024 Chloride [Moles/Vol] 107 mmol/L 98-108 [facility] Eosinophil percentageOrdered By: Conrado Morel on 07-13-2024 Eosinophils/100 WBC (Bld) 1.4 % 0-5 [facility] Erythrocyte distribution wid th ratioOrdered By: Conrado Morel on 07-13-2024 Erythrocyte distribution width (RBC) [Ratio] 15.6 % High 11.6-14.6 [facility] Erythrocyte distribution wid th standard deviationOrdered By: Conrado Morel on 07-13-2024 Erythrocyte distribution width (RBC) [Ratio] 63.7 fl High 35.1-43.9 [facility] Glomerular filtration rate ( GFR) estimation/1.73 sq m using serum, plasma, or whole bOrdered By: Conrado Morel on 07-13-2024 GFR/1.73 sq M.predicted among non-blacks MDRD (S/P/Bld) [Vol rate/Area] 69 mL/min/{1.73_m2} >60 [facility] Hematocrit Auto (Bld) [Volum e fraction]Ordered By: Conrado Morel on 07-13-2024 Hematocrit (Bld) [Volume fraction] 26.5 % Low 40-54 [facility] Hemoglobin measurementOrdere d By: Conrado Morel on 07-13-2024 Hemoglobin (Bld) [Mass/Vol] 8.5 g/dL Low 13.0-16.5 [facility] Immature granulocytes/100 WB C Auto (Bld)Ordered By: Conrado Morel on 07-13-2024 Immature granulocytes/100 WBC (Bld) 0.300 % 0.0-0.9 [facility] MCV (mean corpuscular volume ) determinationOrdered By: Conrado Morel on 07-13-2024 MCV (RBC) [Entitic vol] 111.8 fL High 80-[address] [facility] Magnesium measurement (mass/ volume)Ordered By: Conrado Morel on 07-13-2024 Magnesium (Unsp spec) [Mass/Vol] 2.0 mg/dL 1.5-2.2 [facility] Mean corpuscular hemoglobin (MCH) determinationOrdered By: Conrado Morel on 07-13-2024 MCH (RBC) [Entitic mass] 35.9 pg High 27.0-32.0 [facility] Monocyte percentageOrdered B y: Conrado Morel on 07-13-2024 Monocytes/100 WBC (Bld) 6.6 % 0-[address] [facility] Neutrophil percentageOrdered By: Conrado Morel on 07-13-2024 Neutrophils/100 WBC (Bld) 74.2 % High 47-70 [facility] Platelet countOrdered By: Lauri Morel on 07-13-2024 Platelets (Bld) [#/Vol] 165 10*3/uL 150-450 [facility] Potassium measurement (mass/ volume)Ordered By: Conrado Morel on 07-13-2024 Potassium (Unsp spec) [Mass/Vol] 4.4 mmol/L 3.3-5.1 [facility] RBC Auto (Bld) [#/Vol]Ordere d By: Conrado Morel on 07-13-2024 RBC (Bld) [#/Vol] 2.37 10*6/uL Low 4.6-6.2 [facility] Serum creatinine measurement (mass/volume)Ordered By: Conrado Morel on 07-13-2024 Creatinine [Mass/Vol] 1.19 mg/dL 0.70-1.20 [facility] Serum glucose measurement (m ass/volume)Ordered By: Conrado oMrel on 07-13-2024 Glucose [Mass/Vol] 96 mg/dL 70-99 [facility] Serum or plasma calcium luciana urement (mass/volume)Ordered By: Conrado Morel on 07-13-2024 Calcium [Mass/Vol] 8.3 mg/dL 7.6-11.0 [facility] Serum or plasma urea nitroge n measurement (mass/volume)Ordered By: Conrado Morel on 07-13-2024 Urea nitrogen [Mass/Vol] 8 mg/dL 4-19 [facility] Sodium levelOrdered By: Lawrence Morel on 07-13-2024 Sodium [Moles/Vol] 139 mmol/L 133-145 [facility] White blood cell (WBC) count Ordered By: Conrado Morel on 07-13-2024 WBC (Bld) [#/Vol] 6.4 10*3/uL 4.4-11.0 [facility] Bedside Glucoseon 07-12-2024 FINGERSTICK GLU 94 mg/dL Normal 74-106 [facility] Comment on above: Result Comment: DAYANARA MORENO OF PATIENT CARE PER NURSING PROTOCOL Performed By: #### L 501.080 ####[facility] [address] [place], [place], [address] Bilirubin, totalOrdered By: Melonie De La Rosa on 07-12-2024 Bilirubin [Mass/Vol] 0.36 mg/dL 0.00-1.30 [facility] Body Fluid Cell Count+Diffon 07-12-2024 PATH COMM/BF Reviewed Normal [facility] Comment on above: Result Comment: NO M ALIGNANT CELLS OBSERVED.Fabiola Landaverde MD 07/12/2024 AMENDED REPORT 07/12/24 1412 PATH COMM/BF previously reported as: May follow Performed By: #### L 200.0200 ####[facility] [address] [place], [place], [address] CBC W/Diff, Automatedon Anisocytosis Ql (Bld) 1+ Normal [facility] Comment on above: Performed By: #### L 100.0100, L501.2300, L501.5200, L500.4050 ####[facility] [address] [place], [address] Comprehensive Metabolic Prof ilon 07-12-2024 Albumin [Mass/Vol] 2.5 g/dL Low 3.4-4.8 [facility] Comment on above: Performed By: #### L 100.0100, L501.2300, L501.5200, L500.4050 ####[facility] [address] [place], [address] Albumin/Globulin [Mass ratio] 0.9 {ratio} Normal 0.9-2.4 [facility] Comment on above: Performed By: #### L 100.0100, L501.2300, L501.5200, L500.4050 ####[facility] [address] [place], [address] ALK PHOS 90 U/L Normal 40-129 [facility] Comment on above: Performed By: #### L 100.0100, L501.2300, L501.5200, L500.4050 ####[facility] [address] [place], [address] ALT [Catalytic activity/Vol] 20 U/L Normal <=46 [facility] Comment on above: Performed By: #### L 100.0100, L501.2300, L501.5200, L500.4050 ####[facility] [address] [place], [address] AST [Catalytic activity/Vol] 51 U/L High <=37 [facility] Comment on above: Performed By: #### L 100.0100, L501.2300, L501.5200, L500.4050 ####[facility] [address] [place], [address] Bilirubin [Mass/Vol] 0.36 mg/dL Normal 0.00-1.30 [facility] Comment on above: Performed By: #### L 100.0100, L501.2300, L501.5200, L500.4050 ####[facility] [address] [place], [address] BUN/CRE 8.3 RATIO Low 10-20 [facility] Comment on above: Performed By: #### L 100.0100, L501.2300, L501.5200, L500.4050 ####[facility] [address] [place], [address] Calcium [Mass/Vol] 8.1 mg/dL Normal 7.6-11.0 [facility] Comment on above: Performed By: #### L 100.0100, L501.2300, L501.5200, L500.4050 ####[facility] [address] [place], [address] Chloride [Moles/Vol] 108 mmol/L Normal 98-108 [facility] Comment on above: Performed By: #### L 100.0100, L501.2300, L501.5200, L500.4050 ####[facility] [address] [place], [address] CO2 [Moles/Vol] 22.8 mmol/L Normal 21.0-32.0 [facility] Comment on above: Performed By: #### L 100.0100, L501.2300, L501.5200, L500.4050 ####[facility] [address] [place], [address] Creatinine [Mass/Vol] 1.12 mg/dL Normal 0.70-1.20 [facility] Comment on above: Performed By: #### L 100.0100, L501.2300, L501.5200, L500.4050 ####[facility] [address] [place], [address] ECRCL 63.78 ml/min Normal 50-250 [facility] Comment on above: Performed By: #### L 100.0100, L501.2300, L501.5200, L500.4050 ####[facility] [address] [place], [address] GAP 7 Normal 5-15 [facility] Comment on above: Performed By: #### L 100.0100, L501.2300, L501.5200, L500.4050 ####[facility] [address] [place], [address] GFR/1.73 sq M.predicted among non-blacks MDRD (S/P/Bld) [Vol rate/Area] 75 mL/min/{1.73_m2} Normal >60 [facility] Comment on above: Result Comment: mL/m in/1.73m2 CKD-EPI Creatinine Equation (2020) Performed By: #### L 100.0100, L501.2300, L501.5200, L500.4050 ####[facility] [address] [place], [address] Globulin (S) [Mass/Vol] 2.6 g/dL Normal 2.2-4.2 [facility] Comment on above: Performed By: #### L 100.0100, L501.2300, L501.5200, L500.4050 ####[facility] [address] [place], [address] Glucose [Mass/Vol] 93 mg/dL Normal 70-99 [facility] Comment on above: Performed By: #### L 100.0100, L501.2300, L501.5200, L500.4050 ####[facility] [address] [place], [address] Potassium [Moles/Vol] 4.2 mmol/L Normal 3.3-5.1 [facility] Comment on above: Performed By: #### L 100.0100, L501.2300, L501.5200, L500.4050 ####[facility] [address] [place], [address] Sodium [Moles/Vol] 138 mmol/L Normal 133-145 [facility] Comment on above: Performed By: #### L 100.0100, L501.2300, L501.5200, L500.4050 ####[facility] [address] [place], [address] T PROT 5.1 g/dL Low 5.9-8.4 [facility] Comment on above: Performed By: #### L 100.0100, L501.2300, L501.5200, L500.4050 ####[facility] [address] [place], [address] Urea nitrogen [Mass/Vol] 9 mg/dL Normal 4-19 [facility] Comment on above: Performed By: #### L 100.0100, L501.2300, L501.5200, L500.4050 ####[facility] [address] [place], [address] Consultation - Surgicalon Consultation - Surgical Normal [facility] Magnesiumon 07-12-2024 Magnesium [Mass/Vol] 2.0 mg/dL Normal 1.5-2.2 [facility] Comment on above: Performed By: #### L 100.0100, L501.2300, L501.5200, L500.4050 ####[facility] [address] [place], [address] No Panel InformationOrdered By: Melonie De La Rosa on 07-12-2024 1+ [facility] 51 U/L High <38 [facility] Phosphoruson 07-12-2024 Phosphate [Mass/Vol] 3.0 mg/dL Normal 2.7-4.5 [facility] Comment on above: Performed By: #### L 100.0100, L501.2300, L501.5200, L500.4050 ####[facility] [address] [place], [address] Serum globulin measurementOr dered By: Melonie De La Rosa on 07-12-2024 Globulin (S) [Mass/Vol] 2.6 g/dL 2.2-4.2 [facility] Serum or plasma alanine padilla otransferase (ALT) measurementOrdered By: Melonie De La Rosa on 07-12-2024 ALT [Catalytic activity/Vol] 20 U/L <47 [facility] Serum or plasma albumin luciana urement (mass/volume)Ordered By: Melonie De La Rosa on 07-12-2024 Albumin [Mass/Vol] 2.5 g/dL Low 3.4-4.8 [facility] Serum or plasma albumin/glob ulin mass ratioOrdered By: Melonie De La oRsa on 07-12-2024 Albumin/Globulin [Mass ratio] 0.9 {ratio} 0.9-2.4 [facility] Serum or plasma alkaline nolan sphatase measurementOrdered By: Melonie De La Rosa on 07-12-2024 ALP [Catalytic activity/Vol] 90 U/L 40-129 [facility] Total proteinOrdered By: Shira De La Rosa on 07-12-2024 Protein [Mass/Vol] 5.1 g/dL Low 5.9-8.4 [facility] Abdomen/Pelvis W IV Cont ONL Yon 07-11-2024 Abdomen/Pelvis W IV Cont ONLY Normal [facility] Absolute lymphocyte countOrd ered By: Perez Ribeiro on 07-11-2024 Lymphocytes Auto (Unsp spec) [#/Vol] 0.86 10*3/uL 0.83-4.51 [facility] Alcohol, Blood (Medical)-Ser umon 07-11-2024 SERUM ETOH < 10.1 Normal <=10.0 [facility] Comment on above: Result Comment: This test is for medical purposes only. The legaldefinition of intoxication varies according to local law. Performed By: #### L 505.5000, L100.0100, L501.9100, L500.2500, L500.3400, L501.2450 ####[facility] [address] [place], [place], [address] Amphetamine detection with 1 000 ng/mL as cutoffOrdered By: Perez Ribeiro on 07-11-2024 Amphetamines Screen method >1000 ng/mL Ql (U) Negative <1000 ng/mL [facility] Amphetamines Screen method >1000 ng/mL Ql (U) Positive < 200 ng/mL [facility] Anion gap in Serum or Plasma Ordered By: Perez Ribeiro on 07-11-2024 Anion gap [Moles/Vol] 8 mmol/L 5-15 [facility] Automated lymphocyte count a s percentage of total leukocytesOrdered By: Perez Ribeiro on 07-11-2024 Lymphocytes/100 WBC Auto (Unsp spec) 15.4 % Low 19-41 [facility] BUN/creatinine ratioOrdered By: Perez Ribeiro on 07-11-2024 Urea nitrogen/Creatinine [Mass ratio] 8.9 mg/mg Low 10-20 [facility] Basic Metabolic Profile (BMP )on 07-11-2024 BUN/CRE 8.9 RATIO Low 10-20 [facility] Comment on above: Performed By: #### L 505.5000, L100.0100, L501.9100, L500.2500, L500.3400, L501.2450 ####[facility] [address] [place], [place], [address] Calcium [Mass/Vol] 8.3 mg/dL Normal 7.6-11.0 [facility] Comment on above: Performed By: #### L 505.5000, L100.0100, L501.9100, L500.2500, L500.3400, L501.2450 ####[facility] [address] [place], [place], [address] Chloride [Moles/Vol] 103 mmol/L Normal 98-108 [facility] Comment on above: Performed By: #### L 505.5000, L100.0100, L501.9100, L500.2500, L500.3400, L501.2450 ####[facility] [address] [place], [address] CO2 [Moles/Vol] 28.3 mmol/L Normal 21.0-32.0 [facility] Comment on above: Performed By: #### L 505.5000, L100.0100, L501.9100, L500.2500, L500.3400, L501.2450 ####[facility] [address] [place], [address] Creatinine [Mass/Vol] 1.15 mg/dL Normal 0.70-1.20 [facility] Comment on above: Performed By: #### L 505.5000, L100.0100, L501.9100, L500.2500, L500.3400, L501.2450 ####[facility] [address] [place], [address] ECRCL 62.80 ml/min Normal 50-250 [facility] Comment on above: Performed By: #### L 505.5000, L100.0100, L501.9100, L500.2500, L500.3400, L501.2450 ####[facility] [address] [place], [address] GAP 8 Normal 5-15 [facility] Comment on above: Performed By: #### L 505.5000, L100.0100, L501.9100, L500.2500, L500.3400, L501.2450 ####[facility] [address] [place], [address] GFR/1.73 sq M.predicted among non-blacks MDRD (S/P/Bld) [Vol rate/Area] 72 mL/min/{1.73_m2} Normal >60 [facility] Comment on above: Result Comment: mL/m in/1.73m2 CKD-EPI Creatinine Equation (2020) Performed By: #### L 505.5000, L100.0100, L501.9100, L500.2500, L500.3400, L501.2450 ####[facility] [address] [place], [address] Glucose [Mass/Vol] 137 mg/dL High 70-99 [facility] Comment on above: Performed By: #### L 505.5000, L100.0100, L501.9100, L500.2500, L500.3400, L501.2450 ####[facility] [address] [place], [address] Potassium [Moles/Vol] 4.6 mmol/L Normal 3.3-5.1 [facility] Comment on above: Performed By: #### L 505.5000, L100.0100, L501.9100, L500.2500, L500.3400, L501.2450 ####[facility] [address] [place], [address] Sodium [Moles/Vol] 140 mmol/L Normal 133-145 [facility] Comment on above: Performed By: #### L 505.5000, L100.0100, L501.9100, L500.2500, L500.3400, L501.2450 ####[facility] [address] [place], [address] Urea nitrogen [Mass/Vol] 10 mg/dL Normal 4-19 [facility] Comment on above: Performed By: #### L 505.5000, L100.0100, L501.9100, L500.2500, L500.3400, L501.2450 ####[facility] [address] [place], [address] Basophil percentageOrdered B y: Perez Ribeiro on 06-03-2025 Basophils/100 WBC (Bld) 1.1 % High 0-[address] [facility] Bedside Glucoseon 07-11-2024 FINGERSTICK GLU 97 mg/dL Normal 74-106 [facility] Comment on above: Result Comment: DAYANARA GEMENT OF PATIENT CARE PER NURSING PROTOCOL Performed By: #### L 501.080 ####[facility] [address] [place], [place], [address] FINGERSTICK GLU 149 mg/dL High 74-106 [facility] Comment on above: Result Comment: DAYANARA GEMENT OF PATIENT CARE PER NURSING PROTOCOL Performed By: #### L 501.080 ####[facility] [address] [place], [address] Bilirubin Test strip Ql (U)O rdered By: Perez Ribeiro on 07-11-2024 Bilirubin Ql (U) Negative Negative [facility] Bilirubin directOrdered By: Perez Ribeiro on 07-11-2024 Bilirubin.direct [Mass/Vol] 0.21 mg/dL 0.00-0.30 [facility] Bilirubin, totalOrdered By: Perez Ribeiro on 07-11-2024 Bilirubin [Mass/Vol] 0.34 mg/dL 0.00-1.30 [facility] Blood polychromasia detectio n by light microscopyOrdered By: Perez Ribeiro on 07-11-2024 Polychromasia LM Ql (Bld) RARE [facility] CBC W/Diff, Automatedon Anisocytosis Ql (Bld) 1+ Normal [facility] Comment on above: Performed By: #### L 505.5000, L100.0100, L501.9100, L500.2500, L500.3400, L501.2450 ####[facility] [address] [place], [address] PLT EST A Normal ADEQ [facility] Comment on above: Performed By: #### L 505.5000, L100.0100, L501.9100, L500.2500, L500.3400, L501.2450 ####[facility] [address] [place], [address] POLYCHROMASIA RARE Normal [facility] Comment on above: Performed By: #### L 505.5000, L100.0100, L501.9100, L500.2500, L500.3400, L501.2450 ####[facility] [address] [place], [address] Carbon dioxide, total [Moles /volume] in Central venous bloodOrdered By: Perez Ribeiro on 07-11-2024 CO2 [Moles/Vol] 28.3 mmol/L 21.0-32.0 [facility] Chloride assayOrdered By: Prosper Ribeiro on 07-11-2024 Chloride [Moles/Vol] 103 mmol/L 98-108 [facility] Emergency Department Summary on 07-11-2024 Emergency Department Summary Normal [facility] Eosinophil percentageOrdered By: Perez Ribeiro on 07-11-2024 Eosinophils/100 WBC (Bld) 0.4 % 0-5 [facility] Erythrocyte distribution wid th ratioOrdered By: Perez Ribeiro on 07-11-2024 Erythrocyte distribution width (RBC) [Ratio] 16.1 % High 11.6-14.6 [facility] Erythrocyte distribution wid th standard deviationOrdered By: Perez Ribeiro on 07-11-2024 Erythrocyte distribution width (RBC) [Ratio] 66.4 fl High 35.1-43.9 [facility] Glomerular filtration rate ( GFR) estimation/1.73 sq m using serum, plasma, or whole bOrdered By: Perez Ribeiro on 07-11-2024 GFR/1.73 sq M.predicted among non-blacks MDRD (S/P/Bld) [Vol rate/Area] 72 mL/min/{1.73_m2} >60 [facility] H AND P Exam - Hospitaliston 07-11-2024 H&P Exam - Hospitalist Normal [facility] Hematocrit Auto (Bld) [Volum e fraction]Ordered By: Perez Ribeiro on 07-11-2024 Hematocrit (Bld) [Volume fraction] 29.1 % Low 40-54 [facility] Hemoglobin measurementOrdere d By: Perez Quintin on 07-11-2024 Hemoglobin (Bld) [Mass/Vol] 9.3 g/dL Low 13.0-16.5 [facility] Immature granulocytes/100 WB C Auto (Bld)Ordered By: Perez Ribeiro on 07-11-2024 Immature granulocytes/100 WBC (Bld) 0.500 % 0.0-0.9 [facility] Ketones Test strip Ql (U)Ord ered By: Perez Ribeiro on 07-11-2024 Ketones Ql (U) Negative Negative [facility] Lipaseon 07-11-2024 Lipase [Catalytic activity/Vol] 6 U/L Low 13-75 [facility] Comment on above: Result Comment: Mary Anne zamorano note:LIPASE revised reference range effective 22.New Lipase methodology. Expected to produce lower valuesthan the previous assay method.NEW Reference Range: 13 - 75 U/L Performed By: #### L 505.5000, L100.0100, L501.9100, L500.2500, L500.3400, L501.2450 ####[facility] [address] [place], [place], [id number] Liver Profileon 07-11-2024 Albumin [Mass/Vol] 2.9 g/dL Low 3.4-4.8 [facility] Comment on above: Performed By: #### L 505.5000, L100.0100, L501.9100, L500.2500, L500.3400, L501.2450 ####[facility] [address] [place], [place], [id number] ALK PHOS 104 U/L Normal 40-129 [facility] Comment on above: Performed By: #### L 505.5000, L100.0100, L501.9100, L500.2500, L500.3400, L501.2450 ####[facility] [address] [place], [address] ALT [Catalytic activity/Vol] 23 U/L Normal <=46 [facility] Comment on above: Performed By: #### L 505.5000, L100.0100, L501.9100, L500.2500, L500.3400, L501.2450 ####[facility] [address] [place], [address] AST [Catalytic activity/Vol] 53 U/L High <=37 [facility] Comment on above: Performed By: #### L 505.5000, L100.0100, L501.9100, L500.2500, L500.3400, L501.2450 ####[facility] [address] [place], [address] Bilirubin [Mass/Vol] 0.34 mg/dL Normal 0.00-1.30 [facility] Comment on above: Performed By: #### L 505.5000, L100.0100, L501.9100, L500.2500, L500.3400, L501.2450 ####[facility] [address] [place], [address] Bilirubin.direct [Mass/Vol] 0.21 mg/dL Normal 0.00-0.30 [facility] Comment on above: Performed By: #### L 505.5000, L100.0100, L501.9100, L500.2500, L500.3400, L501.2450 ####[facility] [address] [place], [address] Globulin (S) [Mass/Vol] 2.8 g/dL Normal 2.2-4.2 [facility] Comment on above: Performed By: #### L 505.5000, L100.0100, L501.9100, L500.2500, L500.3400, L501.2450 ####[facility] [address] [place], [address] T PROT 5.7 g/dL Low 5.9-8.4 [facility] Comment on above: Performed By: #### L 505.5000, L100.0100, L501.9100, L500.2500, L500.3400, L501.2450 ####[facility] [address] [place], [place], [id number] MCV (mean corpuscular volume ) determinationOrdered By: Perez Ribeiro on 07-11-2024 MCV (RBC) [Entitic vol] 111.5 fL High 80-[address] [facility] Mean corpuscular hemoglobin (MCH) determinationOrdered By: Perez Ribeiro on 07-11-2024 MCH (RBC) [Entitic mass] 35.6 pg High 27.0-32.0 [facility] Monocyte percentageOrdered B y: Perez Ribeiro on 07-11-2024 Monocytes/100 WBC (Bld) 7.7 % 0-[address] [facility] Mucus LM Ql (Urine sed)Order ed By: Perez Ribeiro on 07-11-2024 Mucus Ql (Urine sed) 0 SEEN /hpf [facility] Neutrophil percentageOrdered By: Perez Ribeiro on 07-11-2024 Neutrophils/100 WBC (Bld) 74.9 % High 47-70 [facility] Nitrite Test strip Ql (U)Ord ered By: Perez Ribeiro on 07-11-2024 Nitrite Ql (U) Negative Negative [facility] No Panel InformationOrdered By: Perez Ribeiro on 07-11-2024 1+ [facility] 53 U/L High <38 [facility] Negative < 200 ng/mL [facility] Platelet countOrdered By: Prosper Ribeiro on 07-11-2024 Platelets (Bld) [#/Vol] 155 10*3/uL 150-450 [facility] Platelet estimateOrdered By: Perez Ribeiro on 07-11-2024 Platelets LM Ql (Bld) A ADEQ [facility] Potassium measurement (mass/ volume)Ordered By: Perez Ribeiro on 07-11-2024 Potassium (Unsp spec) [Mass/Vol] 4.6 mmol/L 3.3-5.1 [facility] Protein Test strip Ql (U)Ord ered By: Perez Ribeiro on 07-11-2024 Protein Ql (U) 15 mg/dl High Negative [facility] RBC Auto (Bld) [#/Vol]Ordere d By: Perez Ribeiro on 07-11-2024 RBC (Bld) [#/Vol] 2.61 10*6/uL Low 4.6-6.2 [facility] Screening urine fentanyl mine surementOrdered By: Perez Ribeiro on 07-11-2024 fentaNYL Screen Ql (U) Negative [facility] Serum creatinine measurement (mass/volume)Ordered By: Perez Ribeiro on 07-11-2024 Creatinine [Mass/Vol] 1.15 mg/dL 0.70-1.20 [facility] Serum globulin measurementOr dered By: Perez Ribeiro on 07-11-2024 Globulin (S) [Mass/Vol] 2.8 g/dL 2.2-4.[address] [facility] Serum glucose measurement (m ass/volume)Ordered By: Perez Ribeiro on 07-11-2024 Glucose [Mass/Vol] 137 mg/dL High 70-99 [facility] Serum or plasma alanine padilla otransferase (ALT) measurementOrdered By: Perez Ribeiro on 07-11-2024 ALT [Catalytic activity/Vol] 23 U/L <47 [facility] Serum or plasma albumin luciana urement (mass/volume)Ordered By: Perez Ribeiro on 07-11-2024 Albumin [Mass/Vol] 2.9 g/dL Low 3.4-4.8 [facility] Serum or plasma alkaline nolan sphatase measurementOrdered By: Perez Ribeiro on 07-11-2024 ALP [Catalytic activity/Vol] 104 U/L 40-129 [facility] Serum or plasma calcium luciana urement (mass/volume)Ordered By: Perez Ribeiro on 07-11-2024 Calcium [Mass/Vol] 8.3 mg/dL 7.6-11.0 [facility] Serum or plasma ethanol luciana urement (mass/volume)Ordered By: Perez Ribeiro on 07-11-2024 Ethanol [Mass/Vol] mg/dL <10.1 [facility] Serum or plasma urea nitroge n measurement (mass/volume)Ordered By: Perez Ribeiro on 07-11-2024 Urea nitrogen [Mass/Vol] 10 mg/dL 4-19 [facility] Sodium levelOrdered By: Beto Ribeiro on 07-11-2024 Sodium [Moles/Vol] 140 mmol/L 133-145 [facility] Squamous epithelial cells de tection in urine sediment by light microscopyOrdered By: Perez Ribeiro on 07-11-2024 Epithelial cells.squamous LM Ql (Urine sed) 0 SEEN /hpf 0-5 [facility] Total proteinOrdered By: Alonso Ribeiro on 07-11-2024 Protein [Mass/Vol] 5.7 g/dL Low 5.9-8.4 [facility] Urinalysis, Completeon 07-11 BACTERIA 0 SEEN Normal None Seen [facility] Comment on above: Order Comment: CLEAN CATCH Performed By: #### L 400.0001 ####[facility] [address] [place], [address] EPI,SQUAMOUS 0 SEEN Normal 0-5 [facility] Comment on above: Order Comment: CLEAN CATCH Performed By: #### L 400.0001 ####[facility] [address] [place], [address] Mucus Ql (Urine sed) 0 SEEN Normal [facility] Comment on above: Order Comment: CLEAN CATCH Performed By: #### L 400.0001 ####[facility] [address] [place], [address] RBC 0 SEEN Normal 0-5 [facility] Comment on above: Order Comment: CLEAN CATCH Performed By: #### L 400.0001 ####[facility] [address] [place], [address] WBC 0 SEEN Normal 0-5 [facility] Comment on above: Order Comment: CLEAN CATCH Performed By: #### L 400.0001 ####[facility] [address] [place], [address] Urine Drug Screen (VISTA)on 07-11-2024 AMPHETAMINES Negative Normal <1000 ng/mL [facility] Comment on above: Performed By: #### L 505.5000, L100.0100, L501.9100, L500.2500, L500.3400, L501.2450 ####[facility] [address] [place], [address] BARBITIURATES Positive Normal < 200 ng/mL [facility] Comment on above: Result Comment: If c onfirmation testing is needed, a separate order will berequired to send out testing to the reference laboratory. Performed By: #### L 505.5000, L100.0100, L501.9100, L500.2500, L500.3400, L501.2450 ####[facility] [address] [place], [place], [phone] BENZODIAZIPINE Negative Normal < 200 ng/mL [facility] Comment on above: Performed By: #### L 505.5000, L100.0100, L501.9100, L500.2500, L500.3400, L501.2450 ####[facility] [address] [place], [place], [phone] BUP Ur Drug Scr Negative Normal < 200 ng/mL [facility] Comment on above: Performed By: #### L 505.5000, L100.0100, L501.9100, L500.2500, L500.3400, L501.2450 ####[facility] [address] [place], [place], [phone] COCAINE Negative Normal < 300 ng/mL [facility] Comment on above: Performed By: #### L 505.5000, L100.0100, L501.9100, L500.2500, L500.3400, L501.2450 ####[facility] [address] [place], [place], [phone] Fentanyl Negative Normal [facility] Comment on above: Performed By: #### L 505.5000, L100.0100, L501.9100, L500.2500, L500.3400, L501.2450 ####[facility] [address] [place], [address] METHADONE Negative Normal < 300 ng/mL [facility] Comment on above: Performed By: #### L 505.5000, L100.0100, L501.9100, L500.2500, L500.3400, L501.2450 ####[facility] [address] [place] [address] OPIATES Negative Normal < 300 ng/mL [facility] Comment on above: Performed By: #### L 505.5000, L100.0100, L501.9100, L500.2500, L500.3400, L501.2450 ####[facility] [address] [place], [place], [phone] OXYCODONE Negative Normal < 100 ng/mL [facility] Comment on above: Performed By: #### L 505.5000, L100.0100, L501.9100, L500.2500, L500.3400, L501.2450 ####[facility] [address] [place], [place], [phone] PCP Negative Normal < 25 ng/mL [facility] Comment on above: Performed By: #### L 505.5000, L100.0100, L501.9100, L500.2500, L500.3400, L501.2450 ####[facility] [address] [place] [address] THC Negative Normal < 50 ng/mL [facility] Comment on above: Performed By: #### L 505.5000, L100.0100, L501.9100, L500.2500, L500.3400, L501.2450 ####[facility] [address] [place], [address] Urine clarityOrdered By: Alonso Ribeiro on 07-11-2024 Clarity (U) Clear Clear [facility] Urine color determinationOrd ered By: Perez Ribeiro on 07-11-2024 Color (U) Yellow Yellow [facility] Urine glucose detectionOrder ed By: Perez Ribeiro on 07-11-2024 Glucose Ql (U) Normal mg/dl Normal [facility] Urine leukocyte esterase det ection by dipstickOrdered By: Perez Ribeiro on 07-11-2024 Leukocyte esterase Test strip Ql (U) Negative Negative [facility] Urine pHOrdered By: Perez plaza on 07-11-2024 pH (U) 8.0 [pH] 5.0 - 8.0 [facility] Urine phencyclidine (PCP) de tectionOrdered By: Perez Ribeiro on 07-11-2024 Phencyclidine Ql (U) Negative < 25 ng/mL [facility] Urine sediment bacteria coun t by microscopy (number/high power field)Ordered By: Perez Ribeiro on 07-11-2024 Bacteria LM.HPF (Urine sed) [#/Area] 0 /[HPF] None Seen [facility] Urine specific gravity measu rementOrdered By: Perez Ribeiro on 07-11-2024 Specific gravity (U) [Rel density] 1.010 1.002-1.030 [facility] Urine urobilinogen measureme ntOrdered By: Perez Ribeiro on 07-11-2024 Urobilinogen Ql (U) Normal mg/dl Normal [facility] White blood cell (WBC) count Ordered By: Perez Ribeiro on 07-11-2024 WBC (Bld) [#/Vol] 5.6 10*3/uL 4.4-11.0 [facility] White blood cell countOrdere d By: Perez Ribeiro on 07-11-2024 White blood cell count 0 SEEN /hpf 0-[address] [facility] Basic Metabolic Profile (BMP )on 07-10-2024 BUN Normal 4- [facility] Comment on above: Result Comment: Canc elled via OM: Order cancelled - Patient discharged Performed By: #### L 500.2500, L100.0500 ####[facility] [address] [place], [address] BUN/CRE Normal 10-20 [facility] Comment on above: Result Comment: Canc elled via OM: Order cancelled - Patient discharged Performed By: #### L 500.2500, L100.0500 ####[facility] [address] [place], [address] Calcium Normal 7.6-11.0 [facility] Comment on above: Result Comment: Canc elled via OM: Order cancelled - Patient discharged Performed By: #### L 500.2500, L100.0500 ####[facility] [address] [place], [address] CL Normal 98-108 [facility] Comment on above: Result Comment: Canc elled via OM: Order cancelled - Patient discharged Performed By: #### L 500.2500, L100.0500 ####[facility] [address] [place], [address] CO2 Normal 21.0-32.0 [facility] Comment on above: Result Comment: Canc elled via OM: Order cancelled - Patient discharged Performed By: #### L 500.2500, L100.0500 ####[facility] [address] [place], [address] CREAT,SERUM Normal 0.70-1.20 [facility] Comment on above: Result Comment: Canc elled via OM: Order cancelled - Patient discharged Performed By: #### L 500.2500, L100.0500 ####[facility] [address] [place], [address] eGFR Normal >60 [facility] Comment on above: Result Comment: Canc elled via OM: Order cancelled - Patient discharged Performed By: #### L 500.2500, L100.0500 ####[facility] [address] [place], [address] GAP Normal 5-15 [facility] Comment on above: Result Comment: Canc elled via OM: Order cancelled - Patient discharged Performed By: #### L 500.2500, L100.0500 ####[facility] [address] [place], [address] GLU Normal 70-99 [facility] Comment on above: Result Comment: Canc elled via OM: Order cancelled - Patient discharged Performed By: #### L 500.2500, L100.0500 ####[facility] [address] [place], [address] Potassium Normal 3.3-5.1 [facility] Comment on above: Result Comment: Canc elled via OM: Order cancelled - Patient discharged Performed By: #### L 500.2500, L100.0500 ####[facility] [address] [place], [address] Basic Metabolic Profile (BMP) Normal 133-145 [facility] Comment on above: Result Comment: Canc elled via OM: Order cancelled - Patient discharged Performed By: #### L 500.2500, L100.0500 ####[facility] [address] [place], [address] CBC-Complete Blood Cnt No Di ffon 07-10-2024 HCT Normal 40-54 [facility] Comment on above: Result Comment: Canc elled via OM: Order cancelled - Patient discharged Performed By: #### L 500.2500, L100.0500 ####[facility] [address] [place], [address] HGB Normal 13.0-16.5 [facility] Comment on above: Result Comment: Canc elled via OM: Order cancelled - Patient discharged Performed By: #### L 500.2500, L100.0500 ####[facility] [address] [place], [address] MCH Normal 27.0-32.0 [facility] Comment on above: Result Comment: Canc elled via OM: Order cancelled - Patient discharged Performed By: #### L 500.2500, L100.0500 ####[facility] [address] [place], [address] MCHC Normal 32-36 [facility] Comment on above: Result Comment: Canc elled via OM: Order cancelled - Patient discharged Performed By: #### L 500.2500, L100.0500 ####[facility] [address] [place], [address] MCV Normal 80-94 [facility] Comment on above: Result Comment: Canc elled via OM: Order cancelled - Patient discharged Performed By: #### L 500.2500, L100.0500 ####[facility] [address] [place], [address] PLT Normal 150-450 [facility] Comment on above: Result Comment: Canc elled via OM: Order cancelled - Patient discharged Performed By: #### L 500.2500, L100.0500 ####[facility] [address] [place], [address] RBC Normal 4.6-6.2 [facility] Comment on above: Result Comment: Canc elled via OM: Order cancelled - Patient discharged Performed By: #### L 500.2500, L100.0500 ####[facility] [address] [place], [address] RDW CV Normal 11.6-14.6 [facility] Comment on above: Result Comment: Canc elled via OM: Order cancelled - Patient discharged Performed By: #### L 500.2500, L100.0500 ####[facility] [address] [place], [address] RDW SD Normal 35.1-43.9 [facility] Comment on above: Result Comment: Canc elled via OM: Order cancelled - Patient discharged Performed By: #### L 500.2500, L100.0500 ####[facility] [address] [place], [address] WBC Normal 4.4-11.0 [facility] Comment on above: Result Comment: Canc elled via OM: Order cancelled - Patient discharged Performed By: #### L 500.2500, L100.0500 ####[facility] [address] [place], [address] Basic Metabolic Profile (BMP )on 07-09-2024 BUN Normal 4-19 [facility] Comment on above: Result Comment: Canc elled via OM: MD Ordered Performed By: #### L 500.2500 ####[facility] [address] [place], [address] Result Comment: Canc elled via OM: Order cancelled - Patient discharged Performed By: #### L 500.2500, L100.0500 ####[facility] [address] [place], [address] BUN/CRE Normal 10-20 [facility] Comment on above: Result Comment: Canc elled via OM: MD Ordered Performed By: #### L 500.2500 ####[facility] [address] [place], [address] Result Comment: Canc elled via OM: Order cancelled - Patient discharged Performed By: #### L 500.2500, L100.0500 ####[facility] [address] [place], [address] Calcium Normal 7.6-11.0 [facility] Comment on above: Result Comment: Canc elled via OM: MD Ordered Performed By: #### L 500.2500 ####[facility] [address] [place], [address] Result Comment: Canc elled via OM: Order cancelled - Patient discharged Performed By: #### L 500.2500, L100.0500 ####[facility] [address] [place], [address] CL Normal 98-108 [facility] Comment on above: Result Comment: Canc elled via OM: MD Ordered Performed By: #### L 500.2500 ####[facility] [address] [place], [address] Result Comment: Canc elled via OM: Order cancelled - Patient discharged Performed By: #### L 500.2500, L100.0500 ####[facility] [address] [place], [address] CO2 Normal 21.0-32.0 [facility] Comment on above: Result Comment: Canc elled via OM: MD Ordered Performed By: #### L 500.2500 ####[facility] [address] [place], [address] Result Comment: Canc elled via OM: Order cancelled - Patient discharged Performed By: #### L 500.2500, L100.0500 ####[facility] [address] [place], [address] CREAT,SERUM Normal 0.70-1.20 [facility] Comment on above: Result Comment: Canc elled via OM: MD Ordered Performed By: #### L 500.2500 ####[facility] [address] [place], [address] Result Comment: Canc elled via OM: Order cancelled - Patient discharged Performed By: #### L 500.2500, L100.0500 ####[facility] [address] [place], [address] eGFR Normal >60 [facility] Comment on above: Result Comment: Canc elled via OM: MD Ordered Performed By: #### L 500.2500 ####[facility] [address] [place], [address] Result Comment: Canc elled via OM: Order cancelled - Patient discharged Performed By: #### L 500.2500, L100.0500 ####[facility] [address] [place], [address] GAP Normal 5-15 [facility] Comment on above: Result Comment: Canc elled via OM: MD Ordered Performed By: #### L 500.2500 ####[facility] [address] [place], [address] Result Comment: Canc elled via OM: Order cancelled - Patient discharged Performed By: #### L 500.2500, L100.0500 ####[facility] [address] [place], [address] GLU Normal 70-99 [facility] Comment on above: Result Comment: Canc elled via OM: MD Ordered Performed By: #### L 500.2500 ####[facility] [address] [place], [address] Result Comment: Canc elled via OM: Order cancelled - Patient discharged Performed By: #### L 500.2500, L100.0500 ####[facility] [address] [place], [address] Potassium Normal 3.3-5.1 [facility] Comment on above: Result Comment: Canc elled via OM: MD Ordered Performed By: #### L 500.2500 ####[facility] [address] [place], [address] Result Comment: Canc elled via OM: Order cancelled - Patient discharged Performed By: #### L 500.2500, L100.0500 ####[facility] [address] [place], [address] Basic Metabolic Profile (BMP) Normal 133-145 [facility] Comment on above: Result Comment: Canc elled via OM: MD Ordered Performed By: #### L 500.2500 ####[facility] [address] [place], [address] Result Comment: Canc elled via OM: Order cancelled - Patient discharged Performed By: #### L 500.2500, L100.0500 ####[facility] [address] [place], [address] CBC-Complete Blood Cnt No Di ffon 07-09-2024 HCT Normal 40-54 [facility] Comment on above: Result Comment: Canc elled via OM: MD Ordered Performed By: #### L 100.0500 ####[facility] [address] [place], [address] HGB Normal 13.0-16.5 [facility] Comment on above: Result Comment: Canc elled via OM: MD Ordered Performed By: #### L 100.0500 ####[facility] [address] [place], [address] MCH Normal 27.0-32.0 [facility] Comment on above: Result Comment: Canc elled via OM: MD Ordered Performed By: #### L 100.0500 ####[facility] [address] [place], [address] MCHC Normal 32-36 [facility] Comment on above: Result Comment: Canc elled via OM: MD Ordered Performed By: #### L 100.0500 ####[facility] [address] [place], [address] MCV Normal 80-94 [facility] Comment on above: Result Comment: Canc elled via OM: MD Ordered Performed By: #### L 100.0500 ####[facility] [address] [place], [address] PLT Normal 150-450 [facility] Comment on above: Result Comment: Canc elled via OM: MD Ordered Performed By: #### L 100.0500 ####[facility] [address] [place], [address] RBC Normal 4.6-6.2 [facility] Comment on above: Result Comment: Canc elled via OM: MD Ordered Performed By: #### L 100.0500 ####[facility] [address] [place], [address] RDW CV Normal 11.6-14.6 [facility] Comment on above: Result Comment: Canc elled via OM: MD Ordered Performed By: #### L 100.0500 ####[facility] [address] [place], [address] RDW SD Normal 35.1-43.9 [facility] Comment on above: Result Comment: Canc elled via OM: MD Ordered Performed By: #### L 100.0500 ####[facility] [address] [place], [address] WBC Normal 4.4-11.0 [facility] Comment on above: Result Comment: Canc elled via OM: MD Ordered Performed By: #### L 100.0500 ####[facility] [address] [place], [address] HCT Normal 40-54 [facility] Comment on above: Result Comment: Canc elled via OM: Order cancelled - Patient discharged Performed By: #### L 500.2500, L100.0500 ####[facility] [address] [place], [address] HGB Normal 13.0-16.5 [facility] Comment on above: Result Comment: Canc elled via OM: Order cancelled - Patient discharged Performed By: #### L 500.2500, L100.0500 ####[facility] [address] [place], [address] MCH Normal 27.0-32.0 [facility] [facility] Comment on above: Result Comment: Canc elled via OM: Order cancelled - Patient discharged Performed By: #### L 500.2500, L100.0500 ####[facility] [address] [place], [address] MCHC Normal 32-36 [facility] Comment on above: Result Comment: Canc elled via OM: Order cancelled - Patient discharged Performed By: #### L 500.2500, L100.0500 ####[facility] [address] [place], [address] MCV Normal 80-94 [facility] Comment on above: Result Comment: Canc elled via OM: Order cancelled - Patient discharged Performed By: #### L 500.2500, L100.0500 ####[facility] [address] [place], [address] PLT Normal 150-450 [facility] Comment on above: Result Comment: Canc elled via OM: Order cancelled - Patient discharged Performed By: #### L 500.2500, L100.0500 ####[facility] [address] [place], [address] RBC Normal 4.6-6.2 [facility] Comment on above: Result Comment: Canc elled via OM: Order cancelled - Patient discharged Performed By: #### L 500.2500, L100.0500 ####[facility] [address] [place], [address] RDW CV Normal 11.6-14.6 [facility] Comment on above: Result Comment: Canc elled via OM: Order cancelled - Patient discharged Performed By: #### L 500.2500, L100.0500 ####[facility] [address] [place], [address] RDW SD Normal 35.1-43.9 [facility] Comment on above: Result Comment: Canc elled via OM: Order cancelled - Patient discharged Performed By: #### L 500.2500, L100.0500 ####[facility] [address] [place], [address] WBC Normal 4.4-11.0 [facility] Comment on above: Result Comment: Canc elled via OM: Order cancelled - Patient discharged Performed By: #### L 500.2500, L100.0500 ####[facility] [address] [place], [address] Basic Metabolic Profile (BMP )on 07-08-2024 BUN Normal 4-19 [facility] Comment on above: Result Comment: Canc elled via OM: Order cancelled - Patient discharged Performed By: #### L 500.2500, L100.0500 ####[facility] [address] [place], [address] BUN/CRE Normal 10-20 [facility] Comment on above: Result Comment: Canc elled via OM: Order cancelled - Patient discharged Performed By: #### L 500.2500, L100.0500 ####[facility] [address] [place], [address] Calcium Normal 7.6-11.0 [facility] Comment on above: Result Comment: Canc elled via OM: Order cancelled - Patient discharged Performed By: #### L 500.2500, L100.0500 ####[facility] [address] [place], [address] CL Normal 98-108 [facility] Comment on above: Result Comment: Canc elled via OM: Order cancelled - Patient discharged Performed By: #### L 500.2500, L100.0500 ####[facility] [address] [place], [address] CO2 Normal 21.0-32.0 [facility] Comment on above: Result Comment: Canc elled via OM: Order cancelled - Patient discharged Performed By: #### L 500.2500, L100.0500 ####[facility] [address] [place], [address] CREAT,SERUM Normal 0.70-1.20 [facility] Comment on above: Result Comment: Canc elled via OM: Order cancelled - Patient discharged Performed By: #### L 500.2500, L100.0500 ####[facility] [address] [place], [address] eGFR Normal >60 [facility] Comment on above: Result Comment: Canc elled via OM: Order cancelled - Patient discharged Performed By: #### L 500.2500, L100.0500 ####[facility] [address] [place], [address] GAP Normal 5-15 [facility] Comment on above: Result Comment: Canc elled via OM: Order cancelled - Patient discharged Performed By: #### L 500.2500, L100.0500 ####[facility] [address] [place], [address] GLU Normal 70-99 [facility] Comment on above: Result Comment: Canc elled via OM: Order cancelled - Patient discharged Performed By: #### L 500.2500, L100.0500 ####[facility] [address] [place], [address] Potassium Normal 3.3-5.1 [facility] Comment on above: Result Comment: Canc elled via OM: Order cancelled - Patient discharged Performed By: #### L 500.2500, L100.0500 ####[facility] [address] [place], [address] Basic Metabolic Profile (BMP) Normal 133-145 [facility] Comment on above: Result Comment: Canc elled via OM: Order cancelled - Patient discharged Performed By: #### L 500.2500, L100.0500 ####[facility] [address] [place], [address] CBC-Complete Blood Cnt No Di ffon 07-08-2024 HCT Normal 40-54 [facility] Comment on above: Result Comment: Canc elled via OM: Order cancelled - Patient discharged Performed By: #### L 500.2500, L100.0500 ####[facility] [address] [place], [address] HGB Normal 13.0-16.5 [facility] Comment on above: Result Comment: Canc elled via OM: Order cancelled - Patient discharged Performed By: #### L 500.2500, L100.0500 ####[facility] [address] [place], [address] MCH Normal 27.0-32.0 [facility] Comment on above: Result Comment: Canc elled via OM: Order cancelled - Patient discharged Performed By: #### L 500.2500, L100.0500 ####[facility] [address] [place], [address] MCHC Normal 32-36 [facility] Comment on above: Result Comment: Canc elled via OM: Order cancelled - Patient discharged Performed By: #### L 500.2500, L100.0500 ####[facility] [address] [place], [address] MCV Normal 80-94 [facility] Comment on above: Result Comment: Canc elled via OM: Order cancelled - Patient discharged Performed By: #### L 500.2500, L100.0500 ####[facility] [address] [place], [address] PLT Normal 150-450 [facility] Comment on above: Result Comment: Canc elled via OM: Order cancelled - Patient discharged Performed By: #### L 500.2500, L100.0500 ####[facility] [address] [place], [address] RBC Normal 4.6-6.2 [facility] Comment on above: Result Comment: Canc elled via OM: Order cancelled - Patient discharged Performed By: #### L 500.2500, L100.0500 ####[facility] [address] [place], [address] RDW CV Normal 11.6-14.6 [facility] Comment on above: Result Comment: Canc elled via OM: Order cancelled - Patient discharged Performed By: #### L 500.2500, L100.0500 ####[facility] [address] [place], [address] RDW SD Normal 35.1-43.9 [facility] Comment on above: Result Comment: Canc elled via OM: Order cancelled - Patient discharged Performed By: #### L 500.2500, L100.0500 ####[facility] [address] [place], [address] WBC Normal 4.4-11.0 [facility] Comment on above: Result Comment: Canc elled via OM: Order cancelled - Patient discharged Performed By: #### L 500.2500, L100.0500 ####[facility] [address] [place], [address] ANCAon 07-07-2024 Atypical pANCA <1:20 Normal Neg:<1:20 [facility] Comment on above: Result Comment: The atypical pANCA pattern has been observed in asignificant percentage of patients with ulcerative colitis,primary sclerosing cholangitis and autoimmune hepatitis. Performed By: #### L 3300.1200, L3600.4030, L3100.3425, L501.6710, L3400.8000, L3410.2350, L101.9900 ####[facility] [address] [place], [address] Cytoplasmic Ab <1:20 Normal Neg:<1:20 [facility] Comment on above: Performed By: #### L 3300.1200, L3600.4030, L3100.3425, L501.6710, L3400.8000, L3410.2350, L101.9900 ####[facility] [address] [place], [address] Perinuclear Ab. <1:20 Normal Neg:<1:20 [facility] Comment on above: Result Comment: The presence of positive fluorescence exhibiting P-ANCA orC-ANCA patterns alone is not specific for the diagnosis ofWegener's Granulomatosis (WG) or microscopic polyangiitis.Decisions about treatment should not be based solely onANCA IFA results. The [employer] AN[employer] Consensusrecommends follow up testing of positive sera with both RI-3 and MPO-ANCA enzyme immunoassays. As many as 5% serumsamples are positive only by EIA. Ref. AM J Clin Lwxcgk3595;111:507-513. Performed By: #### L 3300.1200, L3600.4030, L3100.3425, L501.6710, L3400.8000, L3410.2350, L101.9900 ####[facility] [address] [place], [address] Basic Metabolic Profile (BMP )on 07-07-2024 BUN Normal 4-19 [facility] Comment on above: Result Comment: Canc elled via OM: MD Ordered Performed By: #### L 500.2500 ####[facility] [address] [place], [address] Result Comment: Canc elled via OM: Order cancelled - Patient discharged Performed By: #### L 500.2500, L100.0500 ####[facility] [address] [place], [address] BUN/CRE Normal 10-20 [facility] Comment on above: Result Comment: Canc elled via OM: MD Ordered Performed By: #### L 500.2500 ####[facility] [address] [place], [address] Result Comment: Canc elled via OM: Order cancelled - Patient discharged Performed By: #### L 500.2500, L100.0500 ####[facility] [address] [place], [address] Calcium Normal 7.6-11.0 [facility] Comment on above: Result Comment: Canc elled via OM: MD Ordered Performed By: #### L 500.2500 ####[facility] [address] [place], [address] Result Comment: Canc elled via OM: Order cancelled - Patient discharged Performed By: #### L 500.2500, L100.0500 ####[facility] [address] [place], [address] CL Normal 98-108 [facility] Comment on above: Result Comment: Canc elled via OM: MD Ordered Performed By: #### L 500.2500 ####[facility] [address] [place], [address] Result Comment: Canc elled via OM: Order cancelled - Patient discharged Performed By: #### L 500.2500, L100.0500 ####[facility] [address] [place], [address] CO2 Normal 21.0-32.0 [facility] Comment on above: Result Comment: Canc elled via OM: MD Ordered Performed By: #### L 500.2500 ####[facility] [address] [place], [address] Result Comment: Canc elled via OM: Order cancelled - Patient discharged Performed By: #### L 500.2500, L100.0500 ####[facility] [address] [place], [address] CREAT,SERUM Normal 0.70-1.20 [facility] Comment on above: Result Comment: Canc elled via OM: MD Ordered Performed By: #### L 500.2500 ####[facility] [address] [place], [address] Result Comment: Canc elled via OM: Order cancelled - Patient discharged Performed By: #### L 500.2500, L100.0500 ####[facility] [address] [place], [address] eGFR Normal >60 [facility] Comment on above: Result Comment: Canc elled via OM: MD Ordered Performed By: #### L 500.2500 ####[facility] [address] [place], [address] Result Comment: Canc elled via OM: Order cancelled - Patient discharged Performed By: #### L 500.2500, L100.0500 ####[facility] [address] [place], [address] GAP Normal 5-15 [facility] Comment on above: Result Comment: Canc elled via OM: MD Ordered Performed By: #### L 500.2500 ####[facility] [address] [place], [address] Result Comment: Canc elled via OM: Order cancelled - Patient discharged Performed By: #### L 500.2500, L100.0500 ####[facility] [address] [place], [address] GLU Normal 70-99 [facility] Comment on above: Result Comment: Canc elled via OM: MD Ordered Performed By: #### L 500.2500 ####[facility] [address] [place], [address] Result Comment: Canc elled via OM: Order cancelled - Patient discharged Performed By: #### L 500.2500, L100.0500 ####[facility] [address] [place], [address] Potassium Normal 3.3-5.1 [facility] Comment on above: Result Comment: Canc elled via OM: MD Ordered Performed By: #### L 500.2500 ####[facility] [address] [place], [address] Result Comment: Canc elled via OM: Order cancelled - Patient discharged Performed By: #### L 500.2500, L100.0500 ####[facility] [address] [place], [address] Basic Metabolic Profile (BMP) Normal 133-145 [facility] Comment on above: Result Comment: Canc elled via OM: MD Ordered Performed By: #### L 500.2500 ####[facility] [address] [place], [address] Result Comment: Canc elled via OM: Order cancelled - Patient discharged Performed By: #### L 500.2500, L100.0500 ####[facility] [address] [place], [address] CBC-Complete Blood Cnt No Di ffon 07-07-2024 HCT Normal 40-54 [facility] Comment on above: Result Comment: Canc elled via OM: MD Ordered Performed By: #### L 100.0500 ####[facility] [address] [place], [address] HGB Normal 13.0-16.5 [facility] Comment on above: Result Comment: Canc elled via OM: MD Ordered Performed By: #### L 100.0500 ####[facility] [address] [place], [address] MCH Normal 27.0-32.0 [facility] Comment on above: Result Comment: Canc elled via OM: MD Ordered Performed By: #### L 100.0500 ####[facility] [address] [place], [address] MCHC Normal 32-36 [facility] Comment on above: Result Comment: Canc elled via OM: MD Ordered Performed By: #### L 100.0500 ####[facility] [address] [place], [address] MCV Normal 80-94 [facility] Comment on above: Result Comment: Canc elled via OM: MD Ordered Performed By: #### L 100.0500 ####[facility] [address] [place], [address] PLT Normal 150-450 [facility] Comment on above: Result Comment: Canc elled via OM: MD Ordered Performed By: #### L 100.0500 ####[facility] [address] [place], [address] RBC Normal 4.6-6.2 [facility] Comment on above: Result Comment: Canc elled via OM: MD Ordered Performed By: #### L 100.0500 ####[facility] [address] [place], [address] RDW CV Normal 11.6-14.6 [facility] Comment on above: Result Comment: Canc elled via OM: MD Ordered Performed By: #### L 100.0500 ####[facility] [address] [place], [address] RDW SD Normal 35.1-43.9 [facility] Comment on above: Result Comment: Canc elled via OM: MD Ordered Performed By: #### L 100.0500 ####[facility] [address] [place], [address] WBC Normal 4.4-11.0 [facility] Comment on above: Result Comment: Canc elled via OM: MD Ordered Performed By: #### L 100.0500 ####[facility] [address] [place], [address] HCT Normal 40-54 [facility] Comment on above: Result Comment: Canc elled via OM: Order cancelled - Patient discharged Performed By: #### L 500.2500, L100.0500 ####[facility] [address] [place], [address] HGB Normal 13.0-16.5 [facility] Comment on above: Result Comment: Canc elled via OM: Order cancelled - Patient discharged Performed By: #### L 500.2500, L100.0500 ####[facility] [address] [place], [address] MCH Normal 27.0-32.0 [facility] Comment on above: Result Comment: Canc elled via OM: Order cancelled - Patient discharged Performed By: #### L 500.2500, L100.0500 ####[facility] [address] [place], [address] MCHC Normal 32-36 [facility] Comment on above: Result Comment: Canc elled via OM: Order cancelled - Patient discharged Performed By: #### L 500.2500, L100.0500 ####[facility] [address] [place], [address] MCV Normal 80-94 [facility] Comment on above: Result Comment: Canc elled via OM: Order cancelled - Patient discharged Performed By: #### L 500.2500, L100.0500 ####[facility] [address] [place], [address] PLT Normal 150-450 [facility] Comment on above: Result Comment: Canc elled via OM: Order cancelled - Patient discharged Performed By: #### L 500.2500, L100.0500 ####[facility] [address] [place], [address] RBC Normal 4.6-6.2 [facility] Comment on above: Result Comment: Canc elled via OM: Order cancelled - Patient discharged Performed By: #### L 500.2500, L100.0500 ####[facility] [address] [place], [address] RDW CV Normal 11.6-14.6 [facility] Comment on above: Result Comment: Canc elled via OM: Order cancelled - Patient discharged Performed By: #### L 500.2500, L100.0500 ####[facility] [address] [place], [address] RDW SD Normal 35.1-43.9 [facility] Comment on above: Result Comment: Canc elled via OM: Order cancelled - Patient discharged Performed By: #### L 500.2500, L100.0500 ####[facility] [address] [place], [address] WBC Normal 4.4-11.0 [facility] Comment on above: Result Comment: Canc elled via OM: Order cancelled - Patient discharged Performed By: #### L 500.2500, L100.0500 ####[facility] [address] [place], [address] Celiac AB,Comprehensiveon ANTIGLIADIN IGA 2 units Normal 0-19 [facility] Comment on above: Result Comment: Nega tive 0 - 19 Weak Positive 20 - 30 Moderate to Strong Positive >30 Performed By: #### L 3300.1200, L3600.4030, L3100.3425, L501.6710, L3400.8000, L3410.2350, L101.9900 ####[facility] [address] [place], [address] ANTIGLIADIN IGG <1 Normal 0-19 [facility] Comment on above: Result Comment: Nega tive 0 - 19 Weak Positive 20 - 30 Moderate to Strong Positive >30 Performed By: #### L 3300.1200, L3600.4030, L3100.3425, L501.6710, L3400.8000, L3410.2350, L101.9900 ####[facility] [address] [place], [place], [address] ENDOMYSIAL IGA Negative Normal Negative [facility] Comment on above: Performed By: #### L 3300.1200, L3600.4030, L3100.3425, L501.6710, L3400.8000, L3410.2350, L101.9900 ####[facility] [address] [place], [address] tTG IGA <2 Normal 0-3 [facility] Comment on above: Result Comment: Nega tive 0 - 3 Weak Positive 4 - 10 Positive >10 Tissue Transglutaminase (tTG) has been identified as the endomysial antigen. Studies have demonstr- ated that endomysial IgA antibodies have over 99% specificity for gluten sensitive enteropathy. Performed By: #### L 3300.1200, L3600.4030, L3100.3425, L501.6710, L3400.8000, L3410.2350, L101.9900 ####[facility] [address] [place], [address] tTG IGG <2 Normal 0-5 [facility] Comment on above: Result Comment: Nega tive 0 - 5 Weak Positive 6 - 9 Positive >9 Performed By: #### L 3300.1200, L3600.4030, L3100.3425, L501.6710, L3400.8000, L3410.2350, L101.9900 ####[facility] [address] [place], [address] HELENA + Protein Elect, Serumon 07-07-2024 Albumin [Mass/Vol] 2.1 g/dL Low 2.9-4.4 [facility] Comment on above: Order Comment: N Performed By: #### L 3300.1200, L3600.4030, L3100.3425, L501.6710, L3400.8000, L3410.2350, L101.9900 ####[facility] [address] [place], [address] Albumin/Globulin [Mass ratio] 1.1 {ratio} Normal 0.7-1.7 [facility] Comment on above: Order Comment: N Performed By: #### L 3300.1200, L3600.4030, L3100.3425, L501.6710, L3400.8000, L3410.2350, L101.9900 ####[facility] [address] [place], [address] PWVVY-6-SMZU 0.2 g/dL Normal 0.0-0.4 [facility] Comment on above: Order Comment: N Performed By: #### L 3300.1200, L3600.4030, L3100.3425, L501.6710, L3400.8000, L3410.2350, L101.9900 ####[facility] [address] [place], [address] PEDGG-3-SCIE 0.4 g/dL Normal 0.4-1.0 [facility] Comment on above: Order Comment: N Performed By: #### L 3300.1200, L3600.4030, L3100.3425, L501.6710, L3400.8000, L3410.2350, L101.9900 ####[facility] [address] [place], [address] BETA GLOBULIN 0.7 g/dL Normal 0.7-1.3 [facility] Comment on above: Order Comment: N Performed By: #### L 3300.1200, L3600.4030, L3100.3425, L501.6710, L3400.8000, L3410.2350, L101.9900 ####[facility] [address] [place], [address] GAMMA GLOBULIN 0.7 g/dL Normal 0.4-1.8 [facility] Comment on above: Order Comment: N Performed By: #### L 3300.1200, L3600.4030, L3100.3425, L501.6710, L3400.8000, L3410.2350, L101.9900 ####[facility] [address] [place], [address] Globulin (S) [Mass/Vol] 2.0 g/dL Abnormal 2.2-3.[address] [facility] Comment on above: Order Comment: N Performed By: #### L 3300.1200, L3600.4030, L3100.3425, L501.6710, L3400.8000, L3410.2350, L101.9900 ####[facility] [address] [place], [address] HELENA RESULT,S Comment Normal . [facility] Comment on above: Order Comment: N Result Comment: No m onoclonality detected. Performed By: #### L 3300.1200, L3600.4030, L3100.3425, L501.6710, L3400.8000, L3410.2350, L101.9900 ####[facility] [address] [place], [address] IMMUNOGLOB A QN 318 mg/dL Normal 61-437 [facility] Comment on above: Order Comment: N Performed By: #### L 3300.1200, L3600.4030, L3100.3425, L501.6710, L3400.8000, L3410.2350, L101.9900 ####[facility] [address] [place], [address] IMMUNOGLOB G QN 839 mg/dL Normal 603-1613 [facility] Comment on above: Order Comment: N Performed By: #### L 3300.1200, L3600.4030, L3100.3425, L501.6710, L3400.8000, L3410.2350, L101.9900 ####[facility] [address] [place], [address] IMMUNOGLOB M QN 48 mg/dL Normal 20-172 [facility] Comment on above: Order Comment: N Performed By: #### L 3300.1200, L3600.4030, L3100.3425, L501.6710, L3400.8000, L3410.2350, L101.9900 ####[facility] [address] [place], [address] M-Herb Not Observed Normal Not Observed [facility] Comment on above: Order Comment: N Performed By: #### L 3300.1200, L3600.4030, L3100.3425, L501.6710, L3400.8000, L3410.2350, L101.9900 ####[facility] [address] [place], [address] NOTE: Comment Normal . [facility] Comment on above: Order Comment: N Result Comment: Prot ein electrophoresis scan will follow via computer,mail, or criminal justice professor delivery. Performed By: #### L 3300.1200, L3600.4030, L3100.3425, L501.6710, L3400.8000, L3410.2350, L101.9900 ####[facility] [address] [place], [address] Protein [Mass/Vol] 4.1 g/dL Low 6.0-8.5 [facility] Comment on above: Order Comment: N Performed By: #### L 3300.1200, L3600.4030, L3100.3425, L501.6710, L3400.8000, L3410.2350, L101.9900 ####[facility] [address] [place], [address] Immunofixation Urineon 07-07 HELENA Urine Comment Normal . [facility] Comment on above: Result Comment: No m onoclonality detected.Performed at: [facility] [address] [id number] Director: Agustin Arredondo PhD, Phone: [phone] Performed By: #### L 3300.1200, L3600.4030, L3100.3425, L501.6710, L3400.8000, L3410.2350, L101.9900 ####[facility] [address] [place], [address] Quantiferon TB-Gold+on 07-07 QFT MITOGEN JENIFER 2.42 IU/mL Normal . [facility] Comment on above: Performed By: #### L 3300.1200, L3600.4030, L3100.3425, L501.6710, L3400.8000, L3410.2350, L101.9900 ####[facility] [address] [place], [address] QFT NIL VALUE 0.04 IU/mL Normal . [facility] Comment on above: Performed By: #### L 3300.1200, L3600.4030, L3100.3425, L501.6710, L3400.8000, L3410.2350, L101.9900 ####[facility] [address] [place], [address] QFT TB GOLD+ Comment Normal . [facility] Comment on above: Result Comment: Amari [...] for the test. Performed By: #### L 3300.1200, L3600.4030, L3100.3425, L501.6710, L3400.8000, L3410.2350, L101.9900 ####[facility] [address] [place], [address] QFT TB POS CRIT Negative Normal Negative [facility] Comment on above: Result Comment: No [...] gamma. Chemiluminescence immunoassaymethodology Performed By: #### L 3300.1200, L3600.4030, L3100.3425, L501.6710, L3400.8000, L3410.2350, L101.9900 ####[facility] [address] [place], [place], [id number]) QFT TB1+ AG JENIFER 0.04 IU/mL Normal . [facility] Comment on above: Performed By: #### L 3300.1200, L3600.4030, L3100.3425, L501.6710, L3400.8000, L3410.2350, L101.9900 ####[facility] [address] [place], [address] QFT TB2+ AG JENIFER 0.03 IU/mL Normal . [facility] Comment on above: Performed By: #### L 3300.1200, L3600.4030, L3100.3425, L501.6710, L3400.8000, L3410.2350, L101.9900 ####[facility] [address] [place], [place], [id number] Anion gap in Serum or Plasma Ordered By: Chris Aragon on 07-06-2024 Anion gap [Moles/Vol] 6 mmol/L 06-22 [facility] BUN/creatinine ratioOrdered By: Chris Aragon on 07-06-2024 Urea nitrogen/Creatinine [Mass ratio] 14.9 mg/mg 11-27 [facility] Basic Metabolic Profile (BMP )on 07-06-2024 BUN/CRE 14.9 RATIO Normal 10-20 [facility] Comment on above: Performed By: #### L 500.2500, L100.0500 ####[facility] [address] [place], [address] Calcium [Mass/Vol] 7.8 mg/dL Normal 7.6-11.0 [facility] Comment on above: Performed By: #### L 500.2500, L100.0500 ####[facility] [address] [place], [address] Chloride [Moles/Vol] 102 mmol/L Normal 98-108 [facility] Comment on above: Performed By: #### L 500.2500, L100.0500 ####[facility] [address] [place], [address] CO2 [Moles/Vol] 26.4 mmol/L Normal 21.0-32.0 [facility] Comment on above: Performed By: #### L 500.2500, L100.0500 ####[facility] [address] [place], [address] Creatinine [Mass/Vol] 1.49 mg/dL High 0.70-1.20 [facility] Comment on above: Performed By: #### L 500.2500, L100.0500 ####[facility] [address] [place], [address] ECRCL 48.90 ml/min Low 50-250 [facility] Comment on above: Performed By: #### L 500.2500, L100.0500 ####[facility] [address] [place], [address] GAP 6 Normal 5-15 [facility] Comment on above: Performed By: #### L 500.2500, L100.0500 ####[facility] [address] [place], [address] GFR/1.73 sq M.predicted among non-blacks MDRD (S/P/Bld) [Vol rate/Area] 53 mL/min/{1.73_m2} Low >60 [facility] Comment on above: Result Comment: mL/m in/1.73m2 CKD-EPI Creatinine Equation (2020) Performed By: #### L 500.2500, L100.0500 ####[facility] [address] [place], [address] Glucose [Mass/Vol] 145 mg/dL High 70-99 [facility] Comment on above: Performed By: #### L 500.2500, L100.0500 ####[facility] [address] [place], [address] Potassium [Moles/Vol] 5.1 mmol/L Normal 3.3-5.1 [facility] Comment on above: Performed By: #### L 500.2500, L100.0500 ####[facility] [address] [place], [address] Sodium [Moles/Vol] 135 mmol/L Normal 133-145 [facility] Comment on above: Performed By: #### L 500.2500, L100.0500 ####[facility] [address] [place], [address] Urea nitrogen [Mass/Vol] 22 mg/dL High 4-19 [facility] Comment on above: Performed By: #### L 500.2500, L100.0500 ####[facility] [address] [place], [address] Bedside Glucoseon 07-06-2024 FINGERSTICK GLU 213 mg/dL High 74-106 [facility] Comment on above: Result Comment: DAYANARA MORENO OF PATIENT CARE PER NURSING PROTOCOL Performed By: #### L 501.080 ####[facility] [address] [place], [address] CBC-Complete Blood Cnt No Di ffon 07-06-2024 Erythrocyte distribution width (RBC) [Ratio] 17.2 % High 11.6-14.6 [facility] Comment on above: Performed By: #### L 500.2500, L100.0500 ####[facility] [address] [place], [address] Hematocrit (Bld) [Volume fraction] 25.1 % Low 40-54 [facility] Comment on above: Performed By: #### L 500.2500, L100.0500 ####[facility] [address] [place], [address] Hemoglobin (Bld) [Mass/Vol] 8.3 g/dL Low 13.0-16.5 [facility] Comment on above: Performed By: #### L 500.2500, L100.0500 ####[facility] [address] [place], [address] MCH (RBC) [Entitic mass] 36.2 pg High 27.0-32.0 [facility] Comment on above: Performed By: #### L 500.2500, L100.0500 ####[facility] [address] [place], [address] MCHC (RBC) [Mass/Vol] 33.1 g/dL Normal 32-36 [facility] Comment on above: Performed By: #### L 500.2500, L100.0500 ####[facility] [address] [place], [address] MCV (RBC) [Entitic vol] 109.6 fL High 80-[address] [facility] Comment on above: Performed By: #### L 500.2500, L100.0500 ####[facility] [address] [place], [address] Platelet mean volume (Bld) [Entitic vol] 11.2 fL Normal 6.2-12.0 [facility] Comment on above: Performed By: #### L 500.2500, L100.0500 ####[facility] [address] [place], [address] Platelets (Bld) [#/Vol] 127 10*3/uL Low 150-450 [facility] Comment on above: Performed By: #### L 500.2500, L100.0500 ####[facility] [address] [place], [address] RBC (Bld) [#/Vol] 2.29 10*6/uL Low 4.6-6.2 [facility] Comment on above: Performed By: #### L 500.2500, L100.0500 ####[facility] [address] [place], [address] RDW SD 68.8 fl High 35.1-43.9 [facility] Comment on above: Performed By: #### L 500.2500, L100.0500 ####[facility] [address] [place], [address] WBC (Bld) [#/Vol] 3.9 10*3/uL Low 4.4-11.0 [facility] Comment on above: Performed By: #### L 500.2500, L100.0500 ####[facility] [address] [place], [address] Carbon dioxide, total [Moles /volume] in Central venous bloodOrdered By: Chris Aragon on 07-06-2024 CO2 [Moles/Vol] 26.4 mmol/L 21.0-32.0 [facility] Chloride assayOrdered By: Golden Aragon on 07-06-2024 Chloride [Moles/Vol] 102 mmol/L 98-108 [facility] Discharge Instructionon 06-09 Discharge Instruction Normal [facility] Erythrocyte distribution wid th ratioOrdered By: Chris Aragon on 07-06-2024 Erythrocyte distribution width (RBC) [Ratio] 17.2 % High 11.6-14.6 [facility] Erythrocyte distribution wid th standard deviationOrdered By: Chris Aragon on 07-06-2024 Erythrocyte distribution width (RBC) [Ratio] 68.8 fl High 35.1-43.9 [facility] Glomerular filtration rate ( GFR) estimation/1.73 sq m using serum, plasma, or whole bOrdered By: Chris Aragon on 07-06-2024 GFR/1.73 sq M.predicted among non-blacks MDRD (S/P/Bld) [Vol rate/Area] 53 mL/min/{1.73_m2} Low >60 [facility] Gl[facility] deOrdered By: Chris Aragon on 07-06-2024 Glucose [Mass/Vol] 213 mg/dL High 74-106 [facility] Hematocrit Auto (Bld) [Volum e fraction]Ordered By: Chris Aragon on 07-06-2024 Hematocrit (Bld) [Volume fraction] 25.1 % Low 40-54 [facility] Hemoglobin measurementOrdere d By: Chris Aragon on 07-06-2024 Hemoglobin (Bld) [Mass/Vol] 8.3 g/dL Low 13.0-16.5 [facility] MCV (mean corpuscular volume ) determinationOrdered By: Chris Aragon on 07-06-2024 MCV (RBC) [Entitic vol] 109.6 fL High 80-[address] [facility] Mean corpuscular hemoglobin (MCH) determinationOrdered By: Chris Aragon on 07-06-2024 MCH (RBC) [Entitic mass] 36.2 pg High 27.0-32.0 [facility] Platelet countOrdered By: Golden Aragon on 07-06-2024 Platelets (Bld) [#/Vol] 127 10*3/uL Low 150-450 [facility] Potassium measurement (mass/ volume)Ordered By: Chris Aragon on 07-06-2024 Potassium (Unsp spec) [Mass/Vol] 5.1 mmol/L 3.3-5.1 [facility] RBC Auto (Bld) [#/Vol]Ordere d By: Chris Aragon on 07-06-2024 RBC (Bld) [#/Vol] 2.29 10*6/uL Low 4.6-6.2 [facility] Serum creatinine measurement (mass/volume)Ordered By: Chris Aragon on 07-06-2024 Creatinine [Mass/Vol] 1.49 mg/dL High 0.70-1.20 [facility] Serum glucose measurement (m ass/volume)Ordered By: Chris Aragon on 07-06-2024 Glucose [Mass/Vol] 145 mg/dL High 70-99 [facility] Serum or plasma calcium luciana urement (mass/volume)Ordered By: Chris Aragon on 07-06-2024 Calcium [Mass/Vol] 7.8 mg/dL 7.6-11.0 [facility] Serum or plasma urea nitroge n measurement (mass/volume)Ordered By: Chris Aragon on 07-06-2024 Urea nitrogen [Mass/Vol] 22 mg/dL High 4-19 [facility] Sodium levelOrdered By: Curly Aragon on 07-06-2024 Sodium [Moles/Vol] 135 mmol/L 133-145 [facility] White blood cell (WBC) count Ordered By: Chris Aragon on 07-06-2024 WBC (Bld) [#/Vol] 3.9 10*3/uL Low 4.4-11.0 [facility] GARETT Comprehensive Panelon ANTI-DNA (DS)AB <1 Normal 0-9 [facility] Comment on above: Result Comment: Nega tive <5 Equivocal 5 - 9 Positive >9 Performed By: #### L 3100.5440 ####[facility] [address] [place], [place], [address] ANTI-SS-A < 0.2 Normal 0.0-0.9 [facility] Comment on above: Performed By: #### L 3100.5440 ####[facility] [address] [place], [place], [address] ANTI-SS-B < 0.2 Normal 0.0-0.9 [facility] Comment on above: Performed By: #### L 3100.5440 ####[facility] [address] [place], [place], [address] Anti-Mitochondrial ABon 05- ANTIMITOCHON AB <20.0 Normal 0.0-20.0 [facility] Comment on above: Result Comment: Nega tive 0.0 - 20.0 Equivocal 20.1 - 24.9 Positive >24.9Mitochondrial (M2) Antibodies are found in 90-96% ofpatients with primary biliary cirrhosis.Performed at: [facility] [employer] [id number] Director: Agustin Arredondo PhD, Phone: [phone] Performed By: #### L 800.1280, L462.6004 ####[facility] [address] [place], [address] Anti-Smooth Muscle ABSon ANTISMOOTH MUSC 2 Units Normal 0- [facility] Comment on above: Result Comment: Nega tive 0 - 19 Weak positive 20 - 30 Moderate to strong positive >30 Actin Antibodies are found in 52-85% of patients with autoimmune hepatitis or chronic active hepatitis and in 22% of patients with primary biliary cirrhosis.Performed at: [employer] [id number] Director: Agustin Arredondo PhD, Phone: [phone] Performed By: #### L 800.1280, L424.1687 ####[facility] [address] [place], [place], [address] Basic Metabolic Profile (BMP )on 07-05-2024 BUN/CRE 13.5 RATIO Normal 10-20 [facility] Comment on above: Performed By: #### L 500.2500 ####[facility] [address] [place], [place], [address] Calcium [Mass/Vol] 7.9 mg/dL Normal 7.6-11.0 [facility] Comment on above: Performed By: #### L 500.2500 ####[facility] [address] [place], [place], [address] Chloride [Moles/Vol] 96 mmol/L Low 98-108 [facility] Comment on above: Performed By: #### L 500.2500 ####[facility] [address] [place], [address] CO2 [Moles/Vol] 28.7 mmol/L Normal 21.0-32.0 [facility] Comment on above: Performed By: #### L 500.2500 ####[facility] [address] [place], [address] Creatinine [Mass/Vol] 1.70 mg/dL High 0.70-1.20 [facility] Comment on above: Performed By: #### L 500.2500 ####[facility] [address] [place], [address] ECRCL 44.02 ml/min Low 50-250 [facility] Comment on above: Performed By: #### L 500.2500 ####[facility] [address] [place], [address] GAP 7 Normal 5-15 [facility] Comment on above: Performed By: #### L 500.2500 ####[facility] [address] [place], [address] GFR/1.73 sq M.predicted among non-blacks MDRD (S/P/Bld) [Vol rate/Area] 45 mL/min/{1.73_m2} Low >60 [facility] Comment on above: Result Comment: mL/m in/1.73m2 CKD-EPI Creatinine Equation (2020) Performed By: #### L 500.2500 ####[facility] [address] [place], [address] Glucose [Mass/Vol] 136 mg/dL High 70-99 [facility] Comment on above: Performed By: #### L 500.2500 ####[facility] [address] [place], [address] Potassium [Moles/Vol] 5.1 mmol/L Normal 3.3-5.1 [facility] Comment on above: Performed By: #### L 500.2500 ####[facility] [address] [place], [address] Sodium [Moles/Vol] 132 mmol/L Low 133-145 [facility] Comment on above: Performed By: #### L 500.2500 ####[facility] [address] [place], [address] Urea nitrogen [Mass/Vol] 23 mg/dL High 4-19 [facility] Comment on above: Performed By: #### L 500.2500 ####[facility] [address] [place], [address] Bedside Glucoseon 07-05-2024 FINGERSTICK GLU 108 mg/dL High 74-106 [facility] Comment on above: Result Comment: DAYANARA GEMENT OF PATIENT CARE PER NURSING PROTOCOL Performed By: #### L 501.080 ####[facility] [address] [place], [address] FINGERSTICK GLU 181 mg/dL High 74-106 [facility] Comment on above: Result Comment: DAYANARA GEMENT OF PATIENT CARE PER NURSING PROTOCOL Performed By: #### L 501.080 ####[facility] [address] [place], [address] FINGERSTICK GLU 147 mg/dL High 74-106 [facility] Comment on above: Result Comment: DAYANARA GEMENT OF PATIENT CARE PER NURSING PROTOCOL Performed By: #### L 501.080 ####[facility] [address] [place], [address] FINGERSTICK GLU 210 mg/dL High 74-106 [facility] Comment on above: Result Comment: DAYANARA GEMENT OF PATIENT CARE PER NURSING PROTOCOL Performed By: #### L 501.080 ####[facility] [address] [place], [address] CBC-Complete Blood Cnt No Di ffon 07-05-2024 Erythrocyte distribution width (RBC) [Ratio] 16.7 % High 11.6-14.6 [facility] Comment on above: Performed By: #### L 100.0500 ####[facility] [address] [place], [address] Hematocrit (Bld) [Volume fraction] 26.7 % Low 40-54 [facility] Comment on above: Performed By: #### L 100.0500 ####[facility] [address] [place], [address] Hemoglobin (Bld) [Mass/Vol] 8.9 g/dL Low 13.0-16.5 [facility] Comment on above: Performed By: #### L 100.0500 ####[facility] [address] [place], [address] MCH (RBC) [Entitic mass] 36.2 pg High 27.0-32.0 [facility] Comment on above: Performed By: #### L 100.0500 ####[facility] [address] [place], [address] MCHC (RBC) [Mass/Vol] 33.3 g/dL Normal 32-36 [facility] Comment on above: Performed By: #### L 100.0500 ####[facility] [address] [place], [address] MCV (RBC) [Entitic vol] 108.5 fL High 80-[address] [facility] Comment on above: Performed By: #### L 100.0500 ####[facility] [address] [place], [address] Platelet mean volume (Bld) [Entitic vol] 11.2 fL Normal 6.2-12.0 [facility] Comment on above: Performed By: #### L 100.0500 ####[facility] [address] [place], [address] Platelets (Bld) [#/Vol] 141 10*3/uL Low 150-450 [facility] Comment on above: Performed By: #### L 100.0500 ####[facility] [address] [place], [address] RBC (Bld) [#/Vol] 2.46 10*6/uL Low 4.6-6.2 [facility] Comment on above: Performed By: #### L 100.0500 ####[facility] [address] [place], [address] RDW SD 66.9 fl High 35.1-43.9 [facility] Comment on above: Performed By: #### L 100.0500 ####[facility] [address] [place], [address] WBC (Bld) [#/Vol] 5.3 10*3/uL Normal 4.4-11.0 [facility] Comment on above: Performed By: #### L 100.0500 ####[facility] [address] [place], [address] [employer], Stoolon [address] 91 ug/g Normal 0-120 [facility] Comment on above: Result Comment: Conc entration Interpretation Follow-Up< 5 - 50 ug/g Normal None>50 -120 ug/g Borderline Re-evaluate in 4-6 weeks >120 ug/g Abnormal Repeat as clinically indicatedPerformed at: - [facility] [id number] Director: Karson Lux MD, Phone: [phone] Performed By: #### L 5948.5797, L3728.9992, L9164.9184 ####[facility] [address] [place], [address] Giardia Lamblia, Stool EIAon 07-05-2024 Giardia Stool Negative Normal Negative [facility] Comment on above: Result Comment: Perf ormed at: [facility] [employer] [id number] [place], [place] [id number] Director: Agustin Arredondo PhD, Phone: [phone] Performed By: #### L 7400.3300, L3410.9994, L7000.0700 ####[facility] [address] [place], [place], [address] L3410.9994on 07-05-2024 [facility] Misc. 2 COMMENT Normal . [facility] Comment on above: Order Comment: STOOL 581001lthai for alpha-1 antitrypsin Result Comment: Perf ormed at: [employer] [id number] Director: Agustin Arredondo PhD, Phone: [phone] Performed By: #### L 7400.3300, L3410.9994, L7000.0700 ####[facility] [address] [place], [address] Activated partial thrombopla stin time (aPTT) in platelet poor plasma by coagulation aOrdered By: Antony Espitia on 07-04-2024 aPTT Coag (PPP) [Time] 28.2 s 24.1-36.2 [facility] Albumin Elph [Mass/Vol]Order ed By: Antony Espitia on 07-04-2024 Albumin [Mass/Vol] 2.1 g/dL Low 2.9-4.4 [facility] Bedside Glucoseon 07-04-2024 FINGERSTICK GLU 184 mg/dL High 74-106 [facility] Comment on above: Result Comment: DAYANARA MORENO OF PATIENT CARE PER NURSING PROTOCOL Performed By: #### L 501.080 ####[facility] [address] [place], [place], [id number] FINGERSTICK GLU 319 mg/dL High 74-106 [facility] Comment on above: Result Comment: DAYANARA GEMENT OF PATIENT CARE PER NURSING PROTOCOL Performed By: #### L 501.080 ####[facility] [address] [place], [address] FINGERSTICK GLU 113 mg/dL High 74-106 [facility] Comment on above: Result Comment: DAYANARA GEMENT OF PATIENT CARE PER NURSING PROTOCOL Performed By: #### L 501.080 ####[facility] [address] [place], [address] FINGERSTICK GLU 119 mg/dL High 74-106 [facility] Comment on above: Result Comment: DAYANARA GEMENT OF PATIENT CARE PER NURSING PROTOCOL Performed By: #### L 501.080 ####[facility] [address] [place], [address] Consultation - Cardiologyon 07-04-2024 Consultation - Cardiology Normal [facility] Interpretation of serum or p lasma protein pattern by immunofixation (narrative resultOrdered By: Antony Espitia on 07-04-2024 Protein Fractions Immunofixation Jose Carlos [Interp] Not Observed g/dL Not Observed [facility] No Panel InformationOrdered By: Antony Espitia on 07-04-2024 Addendum Document Comment . [facility] <2 U/mL 0-5 [facility] Ova and Parasites 8623on OP Normal [facility] Comment on above: Performed By: #### L 501.9985, L503.6005, L505.5000, M600.5000, L501.5200 ####[facility] [address] [place], [address] Partial Thromboplast Timeon 07-04-2024 aPTT Coag (Bld) [Time] 28.2 s Normal 24.1-36.2 [facility] Comment on above: Performed By: #### L 300.3900, L300.4310 ####[facility] [address] [place], [address] Prothrombin Time w/INRon INR Coag (PPP) [Relative time] 1.2 {INR} Normal [facility] Comment on above: Performed By: #### L 300.3900, L300.4310 ####[facility] [address] [place], [place], [id number] PT Coag (PPP) [Time] 15.2 s High 11.7-14.9 [facility] Comment on above: Performed By: #### L 300.3900, L300.4310 ####[facility] [address] [place], [place], [id number] Prothrombin timeOrdered By: Antony Espitia on 07-04-2024 PT Coag (PPP) [Time] 15.2 s High 11.7-14.9 [facility] Qualitative QuantiFERON-TB g old in tube testOrdered By: Antony Espitia on 07-04-2024 M. tuberculosis tuberculin stim IFN-g Ql (Bld) 0.04 IU/mL . [facility] Serum DNA double strand anti body assay (units/volume)Ordered By: Antony Espitia on 07-04-2024 DNA double strand Ab Qn (S) [IU]/mL 0-9 [facility] Serum Scl-70 antibody assay (units/volume)Ordered By: Antony Espitia on 07-04-2024 SCL-70 extractable nuclear Ab Qn (S) <0.2 AI 0.0-0.9 [facility] Serum classic neutrophil cyt oplasmic antibody assay (units/volume)Ordered By: Antony Espitia on 07-04-2024 Neutrophil cytoplasmic Ab.classic Qn (S) <1:20 titer Neg:<1:20 [facility] Serum globulin measurement ( mass/volume)Ordered By: Antony Espitia on 07-04-2024 Globulin (S) [Mass/Vol] 2.0 g/dL Low 2.2-3.[address] [facility] Serum mitochondria antibody detectionOrdered By: Antony Espitia on 07-04-2024 Mitochondria Ab Ql (S) <20.0 Units 0.0-20.[address] [facility] Serum or plasma IgA measurem ent (mass/volume)Ordered By: Antony Espitia on 07-04-2024 IgA [Mass/Vol] 318 mg/dL 61-437 [facility] Serum or plasma IgG measurem ent (mass/volume)Ordered By: Antony Espitia on 07-04-2024 IgG [Mass/Vol] 839 mg/dL 603-1613 [facility] Serum or plasma actin IgG an tibody assay (units/volume)Ordered By: Antony Espitia on 07-04-2024 Actin IgG Qn 2 Units 0-19 [facility] Serum or plasma alpha 1 glob ulin measurement by electrophoresis (mass/volume)Ordered By: Antony Espitia on 07-04-2024 Alpha 1 globulin Elph [Mass/Vol] 0.2 g/dL 0.0-0.4 [facility] Alpha 1 globulin Elph [Mass/Vol] 0.4 g/dL 0.4-1.0 [facility] Serum or plasma beta globuli n measurement by electrophoresis (mass/volume)Ordered By: Antony Espitia on 07-04-2024 Beta globulin Elph [Mass/Vol] 0.7 g/dL 0.7-1.3 [facility] Serum or plasma gamma globul in measurement by electrophoresis (mass/volume)Ordered By: Antony Espitia on 07-04-2024 Gamma globulin Elph [Mass/Vol] 0.7 g/dL 0.4-1.8 [facility] Serum or plasma immunoelectr ophoresis interpretation (nominal result)Ordered By: Antony Espitia on 07-04-2024 Interpretation IEP [Interp] Comment . [facility] Serum or plasma protein luciana urement (mass/volume)Ordered By: Antony Espitia on 07-04-2024 Protein [Mass/Vol] 4.1 g/dL Low 6.0-8.5 [facility] Serum perinuclear neutrophil cytoplasmic antibody titer by immunofluorescenceOrdered By: Antony Espitia on 07-04-2024 Neutrophil cytoplasmic Ab.perinuclear IF (S) [Titer] <1:20 titer Neg:<1:20 [facility] Serum tissue transglutaminas e (tTG) IgA antibody assay (units/volume)Ordered By: Antony Espitia on 07-04-2024 tTG IgA Qn (S) <2 U/mL 0-3 [facility] Basic Metabolic Profile (BMP )on 07-03-2024 BUN/CRE 13.1 RATIO Normal 10-20 [facility] Comment on above: Performed By: #### L 100.0500, L500.2500, L501.5200, L501.2300 ####[facility] [address] [place], [address] Calcium [Mass/Vol] 7.4 mg/dL Low 7.6-11.0 [facility] Comment on above: Performed By: #### L 100.0500, L500.2500, L501.5200, L501.2300 ####[facility] [address] [place], [address] Chloride [Moles/Vol] 103 mmol/L Normal 98-108 [facility] Comment on above: Performed By: #### L 100.0500, L500.2500, L501.5200, L501.2300 ####[facility] [address] [place], [address] CO2 [Moles/Vol] 28.0 mmol/L Normal 21.0-32.0 [facility] Comment on above: Performed By: #### L 100.0500, L500.2500, L501.5200, L501.2300 ####[facility] [address] [place], [address] Creatinine [Mass/Vol] 1.15 mg/dL Normal 0.70-1.20 [facility] Comment on above: Performed By: #### L 100.0500, L500.2500, L501.5200, L501.2300 ####[facility] [address] [place], [address] ECRCL 68.03 ml/min Normal 50-250 [facility] Comment on above: Performed By: #### L 100.0500, L500.2500, L501.5200, L501.2300 ####[facility] [address] [place], [address] GAP 6 Normal 5-15 [facility] Comment on above: Performed By: #### L 100.0500, L500.2500, L501.5200, L501.2300 ####[facility] [address] [place], [address] GFR/1.73 sq M.predicted among non-blacks MDRD (S/P/Bld) [Vol rate/Area] 72 mL/min/{1.73_m2} Normal >60 [facility] Comment on above: Result Comment: mL/m in/1.73m2 CKD-EPI Creatinine Equation (2020) Performed By: #### L 100.0500, L500.2500, L501.5200, L501.2300 ####[facility] [address] [place], [address] Glucose [Mass/Vol] 54 mg/dL Low 70-99 [facility] Comment on above: Performed By: #### L 100.0500, L500.2500, L501.5200, L501.2300 ####[facility] [address] [place], [address] Potassium [Moles/Vol] 4.0 mmol/L Normal 3.3-5.1 [facility] Comment on above: Performed By: #### L 100.0500, L500.2500, L501.5200, L501.2300 ####[facility] [address] [place], [address] Sodium [Moles/Vol] 137 mmol/L Normal 133-145 [facility] Comment on above: Performed By: #### L 100.0500, L500.2500, L501.5200, L501.2300 ####[facility] [address] [place], [address] Urea nitrogen [Mass/Vol] 15 mg/dL Normal 4-19 [facility] Comment on above: Performed By: #### L 100.0500, L500.2500, L501.5200, L501.2300 ####[facility] [address] [place], [address] Bedside Glucoseon 07-03-2024 FINGERSTICK GLU 174 mg/dL High 74-106 [facility] Comment on above: Result Comment: DAYANARA GEMENT OF PATIENT CARE PER NURSING PROTOCOL Performed By: #### L 501.080 ####[facility] [address] [place], [address] FINGERSTICK GLU 170 mg/dL High 74-106 [facility] Comment on above: Result Comment: DAYANARA GEMENT OF PATIENT CARE PER NURSING PROTOCOL Performed By: #### L 501.080 ####[facility] [address] [place], [address] FINGERSTICK GLU 120 mg/dL High 74-106 [facility] Comment on above: Result Comment: DAYANARA GEMENT OF PATIENT CARE PER NURSING PROTOCOL Performed By: #### L 501.080 ####[facility] [address] [place], [address] FINGERSTICK GLU 128 mg/dL High 74-106 [facility] Comment on above: Result Comment: DAYANARA GEMENT OF PATIENT CARE PER NURSING PROTOCOL Performed By: #### L 501.080 ####[facility] [address] [place], [address] CBC-Complete Blood Cnt No Di ffon 07-03-2024 Erythrocyte distribution width (RBC) [Ratio] 16.9 % High 11.6-14.6 [facility] Comment on above: Performed By: #### L 100.0500, L500.2500, L501.5200, L501.2300 ####[facility] [address] [place], [address] Hematocrit (Bld) [Volume fraction] 24.2 % Low 40-54 [facility] Comment on above: Performed By: #### L 100.0500, L500.2500, L501.5200, L501.2300 ####[facility] [address] [place], [address] Hemoglobin (Bld) [Mass/Vol] 8.0 g/dL Low 13.0-16.5 [facility] Comment on above: Performed By: #### L 100.0500, L500.2500, L501.5200, L501.2300 ####[facility] [address] [place], [address] MCH (RBC) [Entitic mass] 35.9 pg High 27.0-32.0 [facility] Comment on above: Performed By: #### L 100.0500, L500.2500, L501.5200, L501.2300 ####[facility] [address] [place], [address] MCHC (RBC) [Mass/Vol] 33.1 g/dL Normal 32-36 [facility] Comment on above: Performed By: #### L 100.0500, L500.2500, L501.5200, L501.2300 ####[facility] [address] [place], [address] MCV (RBC) [Entitic vol] 108.5 fL High 80-[address] [facility] Comment on above: Performed By: #### L 100.0500, L500.2500, L501.5200, L501.2300 ####[facility] [address] [place], [address] Platelet mean volume (Bld) [Entitic vol] 10.8 fL Normal 6.2-12.0 [facility] Comment on above: Performed By: #### L 100.0500, L500.2500, L501.5200, L501.2300 ####[facility] [address] [place], [address] Platelets (Bld) [#/Vol] 107 10*3/uL Low 150-450 [facility] Comment on above: Performed By: #### L 100.0500, L500.2500, L501.5200, L501.2300 ####[facility] [address] [place], [address] RBC (Bld) [#/Vol] 2.23 10*6/uL Low 4.6-6.2 [facility] Comment on above: Performed By: #### L 100.0500, L500.2500, L501.5200, L501.2300 ####[facility] [address] [place], [address] RDW SD 66.8 fl High 35.1-43.9 [facility] Comment on above: Performed By: #### L 100.0500, L500.2500, L501.5200, L501.2300 ####[facility] [address] [place], [address] WBC (Bld) [#/Vol] 4.3 10*3/uL Low 4.4-11.0 [facility] Comment on above: Performed By: #### L 100.0500, L500.2500, L501.5200, L501.2300 ####[facility] [address] [place], [address] CRPon 07-03-2024 C-REACTIVE PROT < 3.00 Normal 0.0-3.0 [facility] Comment on above: Performed By: #### L 3300.1200, L3600.4030, L3100.3425, L501.6710, L3400.8000, L3410.2350, L101.9900 ####[facility] [address] [place], [place], [address] Calprotectin stoolOrdered By : Antony Espitia on 07-03-2024 Calprotectin stool 91 ug/g 0-120 [facility] Echocardiogram study reportO rdered By: Yaneli Carbone on 07-03-2024 Study report [facility] Work Phone: Erythrocyte Sed Rateon 07-03 SED RATE < 1 Normal 0-20 [facility] Comment on above: Performed By: #### L 3300.1200, L3600.4030, L3100.3425, L501.6710, L3400.8000, L3410.2350, L101.9900 ####[facility] [address] [place], [place], [id number] Erythrocyte sedimentation ra teOrdered By: Antony Espitia on 07-03-2024 ESR (Bld) [Velocity] mm/h 0-20 [facility] Giardia lamblia ag stool EIA Ordered By: Antony Espitia on 07-03-2024 G. lamblia Ag IA Ql (Stl) Negative Negative [facility] HIVon 07-03-2024 HIV Non-Reactive Normal Nonreactive [facility] Comment on above: Result Comment: Non- ReactiveReactiveRepeatedly reactive samples must be confirmed according [facility] recommended confirmatory algorithms. The subresults foreither HIVAG or AHIV can be used as an aid in the selectionof the confirmation algorithm for reactive samples.Send out specimens with Reactive results to [facility] forconfirmation.Order the HIV antibody detection and differentiation:lc#[id number] Performed By: #### L 3890.6006 ####[facility] [address] [place], [place], [address] LDHon 07-03-2024 LDH 415 U/L High 87-241 [facility] Comment on above: Performed By: #### L 504.2610 ####[facility] [address] [place], [place], [address] MR/CON.PCM.GIon 07-03-2024 MR/CON.PCM.GI Normal [facility] Magnesiumon 07-03-2024 Magnesium [Mass/Vol] 1.8 mg/dL Normal 1.5-2.2 [facility] Comment on above: Performed By: #### L 100.0500, L500.2500, L501.5200, L501.2300 ####[facility] [address] [place], [address] Magnesium measurement (mass/ volume)Ordered By: Melonie De La Rosa on 07-03-2024 Magnesium (Unsp spec) [Mass/Vol] 1.8 mg/dL 1.5-2.2 [facility] No Panel InformationOrdered By: Antony Espitia on 07-03-2024 Non-Reactive Nonreactive [facility] Phosphoruson 07-03-2024 Phosphate [Mass/Vol] 3.2 mg/dL Normal 2.7-4.5 [facility] Comment on above: Performed By: #### L 100.0500, L500.2500, L501.5200, L501.2300 ####[facility] [address] [place], [address] Serum or plasma C reactive p rotein measurement (mass/volume)Ordered By: Antony Espitia on 07-03-2024 CRP [Mass/Vol] mg/L 0.0-3.0 [facility] Bedside Glucoseon 07-02-2024 FINGERSTICK GLU 218 mg/dL High 74-106 [facility] Comment on above: Result Comment: DAYANARA GEMENT OF PATIENT CARE PER NURSING PROTOCOL Performed By: #### L 501.080 ####[facility] [address] [place], [address] FINGERSTICK GLU 174 mg/dL High 74-106 [facility] Comment on above: Result Comment: DAYANARA GEMENT OF PATIENT CARE PER NURSING PROTOCOL Performed By: #### L 501.080 ####[facility] [address] [place], [address] FINGERSTICK GLU 107 mg/dL High 74-106 [facility] Comment on above: Result Comment: DAYANARA GEMENT OF PATIENT CARE PER NURSING PROTOCOL Performed By: #### L 501.080 ####[facility] [address] [place], [address] FINGERSTICK GLU 66 mg/dL Low 74-106 [facility] Comment on above: Result Comment: DAYANARA GEMENT OF PATIENT CARE PER NURSING PROTOCOL Performed By: #### L 501.080 ####[facility] [address] [place], [address] FINGERSTICK GLU 116 mg/dL High 74-106 [facility] Comment on above: Result Comment: DAYANARA GEMENT OF PATIENT CARE PER NURSING PROTOCOL Performed By: #### L 501.080 ####[facility] [address] [place], [address] Bilirubin, totalOrdered By: Melonie De La Rosa on 07-02-2024 Bilirubin [Mass/Vol] 0.29 mg/dL 0.00-1.30 [facility] Blood manual differential co mment interpretation (narrative result)Ordered By: Melonie De La Rosa on 07-02-2024 Manual differential comment Jose Carlos (Bld) [Interp] See comment [facility] CBC-Complete Blood Cnt No Di ffon 07-02-2024 Erythrocyte distribution width (RBC) [Ratio] 16.7 % High 11.6-14.6 [facility] Comment on above: Performed By: #### L 100.4500, L100.0500 ####[facility] [address] [place], [address] Hematocrit (Bld) [Volume fraction] 22.5 % Low 40-54 [facility] Comment on above: Performed By: #### L 100.4500, L100.0500 ####[facility] [address] [place], [address] Hemoglobin (Bld) [Mass/Vol] 7.5 g/dL Low 13.0-16.5 [facility] Comment on above: Performed By: #### L 100.4500, L100.0500 ####[facility] [address] [place], [address] MCH (RBC) [Entitic mass] 36.4 pg High 27.0-32.0 [facility] Comment on above: Performed By: #### L 100.4500, L100.0500 ####[facility] [address] [place], [address] MCHC (RBC) [Mass/Vol] 33.3 g/dL Normal 32-36 [facility] Comment on above: Performed By: #### L 100.4500, L100.0500 ####[facility] [address] [place], [address] MCV (RBC) [Entitic vol] 109.2 fL High 80-[address] [facility] Comment on above: Performed By: #### L 100.4500, L100.0500 ####[facility] [address] [place], [address] Platelet mean volume (Bld) [Entitic vol] 12.5 fL High 6.2-12.0 [facility] Comment on above: Performed By: #### L 100.4500, L100.0500 ####[facility] [address] [place], [address] Platelets (Bld) [#/Vol] 132 10*3/uL Low 150-450 [facility] Comment on above: Performed By: #### L 100.4500, L100.0500 ####[facility] [address] [place], [address] RBC (Bld) [#/Vol] 2.06 10*6/uL Low 4.6-6.2 [facility] Comment on above: Performed By: #### L 100.4500, L100.0500 ####[facility] [address] [place], [address] RDW SD 67.2 fl High 35.1-43.9 [facility] Comment on above: Performed By: #### L 100.4500, L100.0500 ####[facility] [address] [place], [address] WBC (Bld) [#/Vol] 4.0 10*3/uL Low 4.4-11.0 [facility] Comment on above: Performed By: #### L 100.4500, L100.0500 ####[facility] [address] [place], [address] Comprehensive Metabolic Prof ilon 07-02-2024 Albumin [Mass/Vol] 2.3 g/dL Low 3.4-4.8 [facility] Comment on above: Order Comment: REDRA W. PREVIOUS SPECIMEN REJECTED DUE TOHEMOLYSIS. 07/02/2417 Jamari Aguayo. Performed By: #### L 501.2300, L500.4050, L501.5200 ####[facility] [address] [place], [address] Albumin/Globulin [Mass ratio] 1.2 {ratio} Normal 0.9-2.4 [facility] Comment on above: Order Comment: REDRA W. PREVIOUS SPECIMEN REJECTED DUE TOHEMOLYSIS. 07/02/2417 Jamari Aguayo. Performed By: #### L 501.2300, L500.4050, L501.5200 ####[facility] [address] [place], [address] ALK PHOS 101 U/L Normal 40-129 [facility] Comment on above: Order Comment: REDRA W. PREVIOUS SPECIMEN REJECTED DUE TOHEMOLYSIS. 07/02/2417 Jamari Aguayo. Performed By: #### L 501.2300, L500.4050, L501.5200 ####[facility] [address] [place], [address] ALT [Catalytic activity/Vol] 26 U/L Normal <=46 [facility] Comment on above: Order Comment: REDRA W. PREVIOUS SPECIMEN REJECTED DUE TOHEMOLYSIS. 07/02/24516 Jamari Aguayo. Performed By: #### L 501.2300, L500.4050, L501.5200 ####[facility] [address] [place], [address] AST [Catalytic activity/Vol] 54 U/L High <=37 [facility] Comment on above: Order Comment: REDRA W. PREVIOUS SPECIMEN REJECTED DUE TOHEMOLYSIS. 07/02/24516 Jamari Aguayo. Performed By: #### L 501.2300, L500.4050, L501.5200 ####[facility] [address] [place], [address] Bilirubin [Mass/Vol] 0.29 mg/dL Normal 0.00-1.30 [facility] Comment on above: Order Comment: REDRA W. PREVIOUS SPECIMEN REJECTED DUE TOHEMOLYSIS. 07/02/24516 Jamari Aguayo. Performed By: #### L 501.2300, L500.4050, L501.5200 ####[facility] [address] [place], [address] BUN/CRE 8.9 RATIO Low 10-20 [facility] Comment on above: Order Comment: REDRA W. PREVIOUS SPECIMEN REJECTED DUE TOHEMOLYSIS. 07/02/24516 Jamari Aguayo. Performed By: #### L 501.2300, L500.4050, L501.5200 ####[facility] [address] [place], [address] Calcium [Mass/Vol] 7.7 mg/dL Normal 7.6-11.0 [facility] Comment on above: Order Comment: REDRA W. PREVIOUS SPECIMEN REJECTED DUE TOHEMOLYSIS. 07/02/24516 Jamari Aguayo. Performed By: #### L 501.2300, L500.4050, L501.5200 ####[facility] [address] [place], [address] Chloride [Moles/Vol] 108 mmol/L Normal 98-108 [facility] Comment on above: Order Comment: REDRA W. PREVIOUS SPECIMEN REJECTED DUE TOHEMOLYSIS. 07/02/24516 Jamari Aguayo. Performed By: #### L 501.2300, L500.4050, L501.5200 ####[facility] [address] [place], [address] CO2 [Moles/Vol] 26.7 mmol/L Normal 21.0-32.0 [facility] Comment on above: Order Comment: REDRA W. PREVIOUS SPECIMEN REJECTED DUE TOHEMOLYSIS. 07/02/24516 Jamari Aguayo. Performed By: #### L 501.2300, L500.4050, L501.5200 ####[facility] [address] [place], [address] Creatinine [Mass/Vol] 1.22 mg/dL High 0.70-1.20 [facility] Comment on above: Order Comment: REDRA W. PREVIOUS SPECIMEN REJECTED DUE TOHEMOLYSIS. 07/02/24516 Jamari Aguayo. Performed By: #### L 501.2300, L500.4050, L501.5200 ####[facility] [address] [place], [address] ECRCL 65.56 ml/min Normal 50-250 [facility] Comment on above: Order Comment: REDRA W. PREVIOUS SPECIMEN REJECTED DUE TOHEMOLYSIS. 07/02/24516 Jamari Aguayo. Performed By: #### L 501.2300, L500.4050, L501.5200 ####[facility] [address] [place], [address] GAP 7 Normal 5-15 [facility] Comment on above: Order Comment: REDRA W. PREVIOUS SPECIMEN REJECTED DUE TOHEMOLYSIS. 07/02/24516 Jamari Aguayo. Performed By: #### L 501.2300, L500.4050, L501.5200 ####[facility] [address] [place], [address] GFR/1.73 sq M.predicted among non-blacks MDRD (S/P/Bld) [Vol rate/Area] 67 mL/min/{1.73_m2} Normal >60 [facility] Comment on above: Order Comment: REDRA W. PREVIOUS SPECIMEN REJECTED DUE TOHEMOLYSIS. 07/02/24516 Jamari Aguayo. Result Comment: mL/m in/1.73m2 CKD-EPI Creatinine Equation (2020) Performed By: #### L 501.2300, L500.4050, L501.5200 ####[facility] [address] [place], [address] Globulin (S) [Mass/Vol] 2.0 g/dL Low 2.2-4.2 [facility] Comment on above: Order Comment: REDRA W. PREVIOUS SPECIMEN REJECTED DUE TOHEMOLYSIS. 07/02/24516 Jamari Aguayo. Performed By: #### L 501.2300, L500.4050, L501.5200 ####[facility] [address] [place], [address] Glucose [Mass/Vol] 57 mg/dL Low 70-99 [facility] Comment on above: Order Comment: REDRA W. PREVIOUS SPECIMEN REJECTED DUE TOHEMOLYSIS. 07/02/2417 Jamari Aguayo. Performed By: #### L 501.2300, L500.4050, L501.5200 ####[facility] [address] [place], [address] Potassium [Moles/Vol] 4.1 mmol/L Normal 3.3-5.1 [facility] Comment on above: Order Comment: REDRA W. PREVIOUS SPECIMEN REJECTED DUE TOHEMOLYSIS. 07/02/24516 Jamari Aguayo. Performed By: #### L 501.2300, L500.4050, L501.5200 ####[facility] [address] [place], [address] Sodium [Moles/Vol] 141 mmol/L Normal 133-145 [facility] Comment on above: Order Comment: REDRA W. PREVIOUS SPECIMEN REJECTED DUE TOHEMOLYSIS. 07/02/24516 Jamari Aguayo. Performed By: #### L 501.2300, L500.4050, L501.5200 ####[facility] [address] [place], [address] T PROT 4.3 g/dL Low 5.9-8.4 [facility] Comment on above: Order Comment: REDRA W. PREVIOUS SPECIMEN REJECTED DUE TOHEMOLYSIS. 07/02/24516 Jamari Aguayo. Performed By: #### L 501.2300, L500.4050, L501.5200 ####[facility] [address] [place], [address] Urea nitrogen [Mass/Vol] 11 mg/dL Normal 4-19 [facility] Comment on above: Order Comment: REDRA W. PREVIOUS SPECIMEN REJECTED DUE TOHEMOLYSIS. 07/02/24516 Jamari Aguayo. Performed By: #### L 501.2300, L500.4050, L501.5200 ####[facility] [address] [place], [address] ALB Normal 3.4-4.8 [facility] Comment on above: Result Comment: This specimen has been REJECTED due to Laboratory criteria:Hemolyzed.Candida Duke has been notified of need of recollection.07/02/24515 Jamari Aguayo Performed By: #### L 501.2300, L500.4050, L501.5200 ####[facility] [address] [place], [address] ALK PHOS Normal 40-129 [facility] Comment on above: Result Comment: This specimen has been REJECTED due to Laboratory criteria:Hemolyzed.Candidacullen Duke has been notified of need of recollection.07/02/24515 Jamari Callahan White Performed By: #### L 501.2300, L500.4050, L501.5200 ####[facility] [address] [place], [address] ALT Normal <=46 [facility] Comment on above: Result Comment: This specimen has been REJECTED due to Laboratory criteria:Hemolyzed.Candidacullen Duke has been notified of need of recollection.07/02/24515 Jamari Callahan White Performed By: #### L 501.2300, L500.4050, L501.5200 ####[facility] [address] [place], [address] AST Normal <=37 [facility] Comment on above: Result Comment: This specimen has been REJECTED due to Laboratory criteria:Hemolyzed.Candida Duke has been notified of need of recollection.07/02/24515 Jamari Callahan White Performed By: #### L 501.2300, L500.4050, L501.5200 ####[facility] [address] [place], [address] BUN Normal 4-19 [facility] Comment on above: Result Comment: This specimen has been REJECTED due to Laboratory criteria:Hemolyzed.Candida Duke has been notified of need of recollection.07/02/24515 Jamari L White Performed By: #### L 501.2300, L500.4050, L501.5200 ####[facility] [address] [place], [address] BUN/CRE Normal 10-20 [facility] Comment on above: Result Comment: This specimen has been REJECTED due to Laboratory criteria:Hemolyzed.Candida Duke has been notified of need of recollection.07/02/24515 Jamari L White Performed By: #### L 501.2300, L500.4050, L501.5200 ####[facility] [address] [place], [address] Calcium Normal 7.6-11.0 [facility] Comment on above: Result Comment: This specimen has been REJECTED due to Laboratory criteria:Hemolyzed.Candida Duke has been notified of need of recollection.07/02/24515 Jamari L White Performed By: #### L 501.2300, L500.4050, L501.5200 ####[facility] [address] [place], [address] CL Normal 98-108 [facility] Comment on above: Result Comment: This specimen has been REJECTED due to Laboratory criteria:Hemolyzed.Candida Duke has been notified of need of recollection.07/02/24515 Jamari L White Performed By: #### L 501.2300, L500.4050, L501.5200 ####[facility] [address] [place], [address] CO2 Normal 21.0-32.0 [facility] Comment on above: Result Comment: This specimen has been REJECTED due to Laboratory criteria:Hemolyzed.Candida Duke has been notified of need of recollection.07/02/24515 Jamari L White Performed By: #### L 501.2300, L500.4050, L501.5200 ####[facility] [address] [place], [address] CREAT,SERUM Normal 0.70-1.20 [facility] Comment on above: Result Comment: This specimen has been REJECTED due to Laboratory criteria:Hemolyzed.Candida Duke has been notified of need of recollection.07/02/24515 Jamari L White Performed By: #### L 501.2300, L500.4050, L501.5200 ####[facility] [address] [place], [address] eGFR Normal >60 [facility] Comment on above: Result Comment: This specimen has been REJECTED due to Laboratory criteria:Hemolyzed.Candida Duke has been notified of need of recollection.07/02/24515 Jamari L White Performed By: #### L 501.2300, L500.4050, L501.5200 ####[facility] [address] [place], [address] GAP Normal 5-15 [facility] Comment on above: Result Comment: This specimen has been REJECTED due to Laboratory criteria:Hemolyzed.Candidacullen Duke has been notified of need of recollection.07/02/24515 Jamari L White Performed By: #### L 501.2300, L500.4050, L501.5200 ####[facility] [address] [place], [address] GLU Normal 70-99 [facility] Comment on above: Result Comment: This specimen has been REJECTED due to Laboratory criteria:Hemolyzed.Candida Duke has been notified of need of recollection.07/02/24515 Jamari L White Performed By: #### L 501.2300, L500.4050, L501.5200 ####[facility] [address] [place], [address] Potassium Normal 3.3-5.1 [facility] Comment on above: Result Comment: This specimen has been REJECTED due to Laboratory criteria:Hemolyzed.Candida Duke has been notified of need of recollection.07/02/24515 Jamari L White Performed By: #### L 501.2300, L500.4050, L501.5200 ####[facility] [address] [place], [address] T BILI Normal 0.00-1.30 [facility] Comment on above: Result Comment: This specimen has been REJECTED due to Laboratory criteria:Hemolyzed.Candida Duke has been notified of need of recollection.07/02/24515 Jamari L White Performed By: #### L 501.2300, L500.4050, L501.5200 ####[facility] [address] [place], [address] T PROT Normal 5.9-8.4 [facility] Comment on above: Result Comment: This specimen has been REJECTED due to Laboratory criteria:Hemolyzed.Candida Duke has been notified of need of recollection.07/02/24 0516 Jamari Callahan White Performed By: #### L 501.2300, L500.4050, L501.5200 ####[facility] [address] [place], [address] Comprehensive Metabolic Profil Normal 133-145 [facility] Comment on above: Result Comment: This specimen has been REJECTED due to Laboratory criteria:Hemolyzed.Candida Duke has been notified of need of recollection.07/02/2416 Jamari Callahan White Performed By: #### L 501.2300, L500.4050, L501.5200 ####[facility] [address] [place], [address] Culture, Anaerobic Any Sourc chase 07-02-2024 CUAN No growth in 5 days. Normal [facility] Comment on above: Performed By: #### M 100.2000, M100.2900, M100.4001 ####[facility] [address] [place], [address] Differential Commenton 07-02 SMEAR COMMENT Normal [facility] Comment on above: Result Comment: 2+ A NISOCYTOSIS1+ OVALOCYTES1+ SHISTOCYTESRARE ACANTHOCYTESSLIGHT DECREASE PLATELETS Performed By: #### L 100.4500, L100.0500 ####[facility] [address] [place], [address] Magnesiumon 07-02-2024 Magnesium [Mass/Vol] 1.8 mg/dL Normal 1.5-2.2 [facility] Comment on above: Order Comment: REDRA W. PREVIOUS SPECIMEN REJECTED DUE TOHEMOLYSIS. 07/02/24516 Jamari Aguayo. Performed By: #### L 501.2300, L500.4050, L501.5200 ####[facility] [address] [place], [address] Magnesium [Mass/Vol] 1.8 mg/dL Normal 1.5-2.2 [facility] Comment on above: Order Comment: This specimen has been REJECTED due to Laboratory criteria:Hemolyzed.Candida Duke has been notified of need of recollection.07/02/24515 Jamari Aguayo Result Comment: This specimen has been REJECTED due to Laboratory criteria:Hemolyzed.Candida Duke has been notified of need of recollection.07/02/24515 Jamari Aguayo Performed By: #### L 501.2300, L500.4050, L501.5200 ####[facility] [address] [place], [address] No Panel InformationOrdered By: Melonie De La Rosa on 07-02-2024 54 U/L High <38 [facility] Phosphoruson 07-02-2024 Phosphate [Mass/Vol] 2.4 mg/dL Low 2.7-4.5 [facility] Comment on above: Order Comment: RED W. PREVIOUS SPECIMEN REJECTED DUE TOHEMOLYSIS. 07/02/24516 Jamari Aguayo. Performed By: #### L 501.2300, L500.4050, L501.5200 ####[facility] [address] [place], [address] Phosphate [Mass/Vol] 2.7 mg/dL Normal 2.7-4.5 [facility] Comment on above: Order Comment: This specimen has been REJECTED due to Laboratory criteria:Hemolyzed.Candida Duke has been notified of need of recollection.07/02/24515 Jamari Aguayo Result Comment: This specimen has been REJECTED due to Laboratory criteria:Hemolyzed.Candida Duke has been notified of need of recollection.07/02/24515 Jamari Aguayo Performed By: #### L 501.2300, L500.4050, L501.5200 ####[facility] [address] [place], [address] Serum globulin measurementOr dered By: Melonie De La Rosa on 07-02-2024 Globulin (S) [Mass/Vol] 2.0 g/dL Low 2.2-4.[address] [facility] Serum or plasma alanine padilla otransferase (ALT) measurementOrdered By: Melonie De La Rosa on 07-02-2024 ALT [Catalytic activity/Vol] 26 U/L <47 [facility] Serum or plasma albumin luciana urement (mass/volume)Ordered By: Melonie De La Rosa on 07-02-2024 Albumin [Mass/Vol] 2.3 g/dL Low 3.4-4.8 [facility] Serum or plasma albumin/glob ulin mass ratioOrdered By: Melonie De La Rosa on 07-02-2024 Albumin/Globulin [Mass ratio] 1.2 {ratio} 0.9-2.4 [facility] Serum or plasma alkaline nolan sphatase measurementOrdered By: Melonie De La Rosa on 07-02-2024 ALP [Catalytic activity/Vol] 101 U/L 40-129 [facility] Total proteinOrdered By: Shira De La Rosa on 07-02-2024 Protein [Mass/Vol] 4.3 g/dL Low 5.9-8.4 [facility] Absolute lymphocyte countOrd ered By: Conrado Fraser on 07-01-2024 Lymphocytes Auto (Unsp spec) [#/Vol] 0.93 10*3/uL 0.83-4.51 [facility] Automated lymphocyte count a s percentage of total leukocytesOrdered By: Conrado Fraser on 07-01-2024 Lymphocytes/100 WBC Auto (Unsp spec) 19.3 % 19-41 [facility] Basophil percentageOrdered B y: Conrado Fraser on 07-01-2024 Basophils/100 WBC (Bld) 0.8 % 0-[address] [facility] Bedside Glucoseon 07-01-2024 FINGERSTICK GLU 158 mg/dL High 74-106 [facility] Comment on above: Result Comment: DAYANARA MORENO OF PATIENT CARE PER NURSING PROTOCOL Performed By: #### L 501.080 ####[facility] [address] [place], [address] FINGERSTICK GLU 237 mg/dL High 74-106 [facility] Comment on above: Result Comment: DAYANARA GEMENT OF PATIENT CARE PER NURSING PROTOCOL Performed By: #### L 501.080 ####[facility] [address] [place], [address] FINGERSTICK GLU 114 mg/dL High 74-106 [facility] Comment on above: Result Comment: DAYANARA GEMENT OF PATIENT CARE PER NURSING PROTOCOL Performed By: #### L 501.080 ####[facility] [address] [place], [address] FINGERSTICK GLU 238 mg/dL High 74-106 [facility] Comment on above: Result Comment: DAYANARA GEMENT OF PATIENT CARE PER NURSING PROTOCOL Performed By: #### L 501.080 ####[facility] [address] [place], [address] CBC W/Diff, Automatedon - Anisocytosis Ql (Bld) 1+ Normal [facility] Comment on above: Performed By: #### L 100.0100, L501.2300, L500.4050 ####[facility] [address] [place], [address] MACROCYTOSIS 1+ Normal [facility] Comment on above: Performed By: #### L 100.0100, L501.2300, L500.4050 ####[facility] [address] [place], [address] SMEAR COMMENT SCANNED Normal [facility] Comment on above: Performed By: #### L 100.0100, L501.2300, L500.4050 ####[facility] [address] [place], [address] Comprehensive Metabolic Prof ilon 07-01-2024 GAP 7 Normal 5-15 [facility] Comment on above: Performed By: #### L 100.0100, L501.2300, L500.4050 ####[facility] [address] [place], [address] Albumin [Mass/Vol] 2.4 g/dL Low 3.4-4.8 [facility] Comment on above: Performed By: #### L 100.0100, L501.2300, L500.4050 ####[facility] [address] [place], [address] Albumin/Globulin [Mass ratio] 1.3 {ratio} Normal 0.9-2.4 [facility] Comment on above: Performed By: #### L 100.0100, L501.2300, L500.4050 ####[facility] [address] [place], [address] ALK PHOS 87 U/L Normal 40-129 [facility] Comment on above: Performed By: #### L 100.0100, L501.2300, L500.4050 ####[facility] [address] [place], [address] ALT [Catalytic activity/Vol] 25 U/L Normal <=46 [facility] Comment on above: Performed By: #### L 100.0100, L501.2300, L500.4050 ####[facility] [address] [place], [address] AST [Catalytic activity/Vol] 43 U/L High <=37 [facility] Comment on above: Performed By: #### L 100.0100, L501.2300, L500.4050 ####[facility] [address] [place], [address] Bilirubin [Mass/Vol] 0.36 mg/dL Normal 0.00-1.30 [facility] Comment on above: Performed By: #### L 100.0100, L501.2300, L500.4050 ####[facility] [address] [place], [address] BUN/CRE 8.0 RATIO Low 10-20 [facility] Comment on above: Performed By: #### L 100.0100, L501.2300, L500.4050 ####[facility] [address] [place], [address] Calcium [Mass/Vol] 7.7 mg/dL Normal 7.6-11.0 [facility] Comment on above: Performed By: #### L 100.0100, L501.2300, L500.4050 ####[facility] [address] [place], [address] Chloride [Moles/Vol] 103 mmol/L Normal 98-108 [facility] Comment on above: Performed By: #### L 100.0100, L501.2300, L500.4050 ####[facility] [address] [place], [address] CO2 [Moles/Vol] 25.9 mmol/L Normal 21.0-32.0 [facility] Comment on above: Performed By: #### L 100.0100, L501.2300, L500.4050 ####[facility] [address] [place], [address] Creatinine [Mass/Vol] 1.28 mg/dL High 0.70-1.20 [facility] Comment on above: Performed By: #### L 100.0100, L501.2300, L500.4050 ####[facility] [address] [place], [address] ECRCL 64.55 ml/min Normal 50-250 [facility] Comment on above: Performed By: #### L 100.0100, L501.2300, L500.4050 ####[facility] [address] [place], [address] GFR/1.73 sq M.predicted among non-blacks MDRD (S/P/Bld) [Vol rate/Area] 64 mL/min/{1.73_m2} Normal >60 [facility] Comment on above: Result Comment: mL/m in/1.73m2 CKD-EPI Creatinine Equation (2020) Performed By: #### L 100.0100, L501.2300, L500.4050 ####[facility] [address] [place], [address] Globulin (S) [Mass/Vol] 1.9 g/dL Low 2.2-4.[address] [facility] Comment on above: Performed By: #### L 100.0100, L501.2300, L500.4050 ####[facility] [address] [place], [address] Glucose [Mass/Vol] 256 mg/dL High 70-99 [facility] Comment on above: Performed By: #### L 100.0100, L501.2300, L500.4050 ####[facility] [address] [place], [address] Potassium [Moles/Vol] 4.2 mmol/L Normal 3.3-5.1 [facility] Comment on above: Performed By: #### L 100.0100, L501.2300, L500.4050 ####[facility] [address] [place], [address] Sodium [Moles/Vol] 136 mmol/L Normal 133-145 [facility] Comment on above: Performed By: #### L 100.0100, L501.2300, L500.4050 ####[facility] [address] [place], [address] T PROT 4.4 g/dL Low 5.9-8.4 [facility] Comment on above: Performed By: #### L 100.0100, L501.2300, L500.4050 ####[facility] [address] [place], [address] Urea nitrogen [Mass/Vol] 10 mg/dL Normal 4-19 [facility] Comment on above: Performed By: #### L 100.0100, L501.2300, L500.4050 ####[facility] [address] [place], [address] Echo Completeon 07-01-2024 Echo Complete Normal [facility] Eosinophil percentageOrdered By: Conrado Fraser on 07-01-2024 Eosinophils/100 WBC (Bld) 1.0 % 0-5 [facility] Immature granulocytes/100 WB C Auto (Bld)Ordered By: Conrado Fraser on 07-01-2024 Immature granulocytes/100 WBC (Bld) 0.200 % 0.0-0.9 [facility] L499.0043on 07-01-2024 Trop T High Sen 97 ng/L Invalid Interpretation Code <=22 [facility] Comment on above: Result Comment: Crit ical Result(s) Called at 0152: by:??NBURNS TO EAFFOLTERResults read back by same. Performed By: #### L 499.0043 ####[facility] [address] [place], [address] Macrocytes detectionOrdered By: Conrado Fraser on 07-01-2024 Macrocytes Ql (Bld) 1+ [facility] Monocyte percentageOrdered B y: Conrado Fraser on 07-01-2024 Monocytes/100 WBC (Bld) 9.8 % 0-[address] [facility] Neutrophil percentageOrdered By: Conrado Fraser on 07-01-2024 Neutrophils/100 WBC (Bld) 68.9 % 47-70 [facility] No Panel InformationOrdered By: Conrado Fraser on 07-01-2024 1+ [facility] Operative Reporton Operative Report Normal [facility] Phosphoruson 07-01-2024 Phosphate [Mass/Vol] 3.1 mg/dL Normal 2.7-4.5 [facility] Comment on above: Performed By: #### L 100.0100, L501.2300, L500.4050 ####[facility] [address] [place], [place], [address] Troponin T.cardiac [Mass/vol ume] in Serum or Plasma by High sensitivity methodOrdered By: Conrado Fraser on 07-01-2024 Troponin T.cardiac High sensitivity method [Mass/Vol] 97 ng/L High <22 [facility] Abdomen/Pelvis W IV Cont ONL Yon 06-30-2024 Abdomen/Pelvis W IV Cont ONLY Normal [facility] Alcohol, Blood (Medical)-Ser umon 06-30-2024 SERUM ETOH < 10.1 Normal <=10.0 [facility] Comment on above: Result Comment: This test is for medical purposes only. The legaldefinition of intoxication varies according to local law. Performed By: #### L 500.3400, L100.0100, L503.6005, L501.2450, L500.2500, L300.3900, L300.4310, L501.9100 ####[facility] [address] [place], [address] Basic Metabolic Profile (BMP )on 06-30-2024 BUN/CRE 7.7 RATIO Low 10-20 [facility] Comment on above: Performed By: #### L 500.3400, L100.0100, L503.6005, L501.2450, L500.2500, L300.3900, L300.4310, L501.9100 ####[facility] [address] [place], [address] Calcium [Mass/Vol] 8.2 mg/dL Normal 7.6-11.0 [facility] Comment on above: Performed By: #### L 500.3400, L100.0100, L503.6005, L501.2450, L500.2500, L300.3900, L300.4310, L501.9100 ####[facility] [address] [place], [address] Chloride [Moles/Vol] 101 mmol/L Normal 98-108 [facility] Comment on above: Performed By: #### L 500.3400, L100.0100, L503.6005, L501.2450, L500.2500, L300.3900, L300.4310, L501.9100 ####[facility] [address] [place], [address] CO2 [Moles/Vol] 24.7 mmol/L Normal 21.0-32.0 [facility] Comment on above: Performed By: #### L 500.3400, L100.0100, L503.6005, L501.2450, L500.2500, L300.3900, L300.4310, L501.9100 ####[facility] [address] [place], [address] Creatinine [Mass/Vol] 1.41 mg/dL High 0.70-1.20 [facility] Comment on above: Performed By: #### L 500.3400, L100.0100, L503.6005, L501.2450, L500.2500, L300.3900, L300.4310, L501.9100 ####[facility] [address] [place], [address] ECRCL 58.60 ml/min Normal 50-250 [facility] Comment on above: Performed By: #### L 500.3400, L100.0100, L503.6005, L501.2450, L500.2500, L300.3900, L300.4310, L501.9100 ####[facility] [address] [place], [address] GAP 9 Normal 5-15 [facility] Comment on above: Performed By: #### L 500.3400, L100.0100, L503.6005, L501.2450, L500.2500, L300.3900, L300.4310, L501.9100 ####[facility] [address] [place], [address] GFR/1.73 sq M.predicted among non-blacks MDRD (S/P/Bld) [Vol rate/Area] 57 mL/min/{1.73_m2} Low >60 [facility] Comment on above: Result Comment: mL/m in/1.73m2 CKD-EPI Creatinine Equation (2020) Performed By: #### L 500.3400, L100.0100, L503.6005, L501.2450, L500.2500, L300.3900, L300.4310, L501.9100 ####[facility] [address] [place], [address] Glucose [Mass/Vol] 159 mg/dL High 70-99 [facility] Comment on above: Performed By: #### L 500.3400, L100.0100, L503.6005, L501.2450, L500.2500, L300.3900, L300.4310, L501.9100 ####[facility] [address] [place], [address] Potassium [Moles/Vol] 4.2 mmol/L Normal 3.3-5.1 [facility] Comment on above: Performed By: #### L 500.3400, L100.0100, L503.6005, L501.2450, L500.2500, L300.3900, L300.4310, L501.9100 ####[facility] [address] [place], [address] Sodium [Moles/Vol] 135 mmol/L Normal 133-145 [facility] Comment on above: Performed By: #### L 500.3400, L100.0100, L503.6005, L501.2450, L500.2500, L300.3900, L300.4310, L501.9100 ####[facility] [address] [place], [place], [address] Urea nitrogen [Mass/Vol] 11 mg/dL Normal 4-19 [facility] Comment on above: Performed By: #### L 500.3400, L100.0100, L503.6005, L501.2450, L500.2500, L300.3900, L300.4310, L501.9100 ####[facility] [address] [place], [place], [address] Bedside Glucoseon 06-30-2024 FINGERSTICK GLU 123 mg/dL High 74-106 [facility] Comment on above: Result Comment: DAYANARA MORENO OF PATIENT CARE PER NURSING PROTOCOL Performed By: #### L 501.080 ####[facility] [address] [place], [place], [address] Bilirubin Test strip Ql (U)O rdered By: Narendra Gonzalez on 06-30-2024 Bilirubin Ql (U) 1 mg/dL High Negative [facility] Bilirubin directOrdered By: Narendra Gonzalez on 06-30-2024 Bilirubin.direct [Mass/Vol] 0.27 mg/dL 0.00-0.30 [facility] Blood polychromasia detectio n by light microscopyOrdered By: Narendra Gonzalez on 06-30-2024 Polychromasia LM Ql (Bld) 2+ [facility] CBC W/Diff, Automatedon 06-09 Anisocytosis Ql (Bld) 2+ Normal [facility] Comment on above: Performed By: #### L 500.3400, L100.0100, L503.6005, L501.2450, L500.2500, L300.3900, L300.4310, L501.9100 ####[facility] [address] [place], [address] POLYCHROMASIA 2+ Normal [facility] Comment on above: Performed By: #### L 500.3400, L100.0100, L503.6005, L501.2450, L500.2500, L300.3900, L300.4310, L501.9100 ####[facility] [address] [place], [address] CO2 (BldV) [Moles/Vol]Ordere d By: Conrado Fraser on 06-30-2024 CO2 [Moles/Vol] 29 mmol/L [facility] Chest 1 View (Portable)on Chest 1 View (Portable) Normal [facility] Emergency Department Summary on 06-30-2024 Emergency Department Summary Normal [facility] H AND P Exam - Hospitaliston 06-30-2024 H&P Exam - Hospitalist Normal [facility] Ketones Test strip Ql (U)Ord ered By: Narendra Gonzalez on 06-30-2024 Ketones Ql (U) 5 mg/dl High Negative [facility] L499.0042on 06-30-2024 Trop T High Sen 98 ng/L Invalid Interpretation Code <=22 [facility] Comment on above: Result Comment: Crit ical Result(s) Called at: 2337 by:??MATTHEW FLETCHER. Results read back by same. Performed By: #### L 499.0042 ####[facility] [address] [place], [address] L501.4021on 06-30-2024 Trop T High Sen 93 ng/L Invalid Interpretation Code <=22 [facility] Comment on above: Order Comment: PT RE FUSED A PHLEBOTOMY DRAW. ONLY WOULD LET NURSE DRAW FROM LINE. Result Comment: Crit ical Result(s) Called at: 2144 by: SYD OVIEDO??Results read back by same. Performed By: #### L 501.4021 ####[facility] [address] [place], [place], [address] L503.7505on 06-30-2024 Natriuretic peptide B (Bld) [Mass/Vol] 37539 pg/mL High <=900 [facility] Comment on above: Result Comment: Hear t Failure Unlikely: < 300 pg/mLHeart Failure Likely< 50 Years: > 450 pg/mL50-75 Years: > 900 pg/mL>75 Years: > 1800 pg/mL Performed By: #### L 503.7504 ####[facility] [address] [place], [place], [address] Lactic Acidon 06-30-2024 Lactate [Moles/Vol] 1.4 mmol/L Normal 0.0-2.0 [facility] Comment on above: Order Comment: Y Performed By: #### L 500.3400, L100.0100, L503.6005, L501.2450, L500.2500, L300.3900, L300.4310, L501.9100 ####[facility] [address] [place], [place], [address] Lipaseon 06-30-2024 Lipase [Catalytic activity/Vol] 6 U/L Low 13-75 [facility] Comment on above: Result Comment: Mary Anne zamorano note:LIPASE revised reference range effective 22.New Lipase methodology. Expected to produce lower valuesthan the previous assay method.NEW Reference Range: 13 - 75 U/L Performed By: #### L 500.3400, L100.0100, L503.6005, L501.2450, L500.2500, L300.3900, L300.4310, L501.9100 ####[facility] [address] [place], [place], [address] Liver Profileon 06-30-2024 Albumin [Mass/Vol] 2.5 g/dL Low 3.4-4.8 [facility] Comment on above: Performed By: #### L 500.3400, L100.0100, L503.6005, L501.2450, L500.2500, L300.3900, L300.4310, L501.9100 ####[facility] [address] [place], [address] ALK PHOS 117 U/L Normal 40-129 [facility] Comment on above: Performed By: #### L 500.3400, L100.0100, L503.6005, L501.2450, L500.2500, L300.3900, L300.4310, L501.9100 ####[facility] [address] [place], [address] ALT [Catalytic activity/Vol] 34 U/L Normal <=46 [facility] Comment on above: Performed By: #### L 500.3400, L100.0100, L503.6005, L501.2450, L500.2500, L300.3900, L300.4310, L501.9100 ####[facility] [address] [place], [address] AST [Catalytic activity/Vol] 55 U/L High <=37 [facility] Comment on above: Performed By: #### L 500.3400, L100.0100, L503.6005, L501.2450, L500.2500, L300.3900, L300.4310, L501.9100 ####[facility] [address] [place], [address] Bilirubin [Mass/Vol] 0.45 mg/dL Normal 0.00-1.30 [facility] Comment on above: Performed By: #### L 500.3400, L100.0100, L503.6005, L501.2450, L500.2500, L300.3900, L300.4310, L501.9100 ####[facility] [address] [place], [address] Bilirubin.direct [Mass/Vol] 0.27 mg/dL Normal 0.00-0.30 [facility] Comment on above: Performed By: #### L 500.3400, L100.0100, L503.6005, L501.2450, L500.2500, L300.3900, L300.4310, L501.9100 ####[facility] [address] [place], [address] Globulin (S) [Mass/Vol] 2.6 g/dL Normal 2.2-4.2 [facility] Comment on above: Performed By: #### L 500.3400, L100.0100, L503.6005, L501.2450, L500.2500, L300.3900, L300.4310, L501.9100 ####[facility] [address] [place], [address] T PROT 5.1 g/dL Low 5.9-8.4 [facility] Comment on above: Performed By: #### L 500.3400, L100.0100, L503.6005, L501.2450, L500.2500, L300.3900, L300.4310, L501.9100 ####[facility] [address] [place], [address] Magnesiumon 06-30-2024 Magnesium [Mass/Vol] 1.6 mg/dL Normal 1.5-2.2 [facility] Comment on above: Performed By: #### L 501.5200 ####[facility] [address] [place], [address] Mucus LM Ql (Urine sed)Order ed By: Narendra Gonzalez on 06-30-2024 Mucus Ql (Urine sed) 0 SEEN /hpf [facility] Natriuretic peptide.B prohor irene N-Terminal [Mass/volume] in Serum or PlasmaOrdered By: Conrado Fraser on 06-30-2024 Natriuretic peptide.B prohormone N-Terminal [Mass/Vol] 07220 pg/mL High <900 [facility] Nitrite Test strip Ql (U)Ord ered By: Narendra Gonzalez on 06-30-2024 Nitrite Ql (U) Negative Negative [facility] No Panel InformationOrdered By: Conrado Fraser on 06-30-2024 RSOA [facility] Not entered [facility] Room Air [facility] Partial Thromboplast Timeon 06-30-2024 aPTT Coag (Bld) [Time] 29.0 s Normal 24.1-36.2 [facility] Comment on above: Performed By: #### L 500.3400, L100.0100, L503.6005, L501.2450, L500.2500, L300.3900, L300.4310, L501.9100 ####[facility] [address] [place], [place], [address] Protein Test strip Ql (U)Ord ered By: Narendra Gonzalez on 06-30-2024 Protein Ql (U) 30 mg/dl High Negative [facility] Prothrombin Time w/INRon INR Coag (PPP) [Relative time] 1.2 {INR} Normal [facility] Comment on above: Performed By: #### L 500.3400, L100.0100, L503.6005, L501.2450, L500.2500, L300.3900, L300.4310, L501.9100 ####[facility] [address] [place], [address] PT Coag (PPP) [Time] 15.9 s High 11.7-14.9 [facility] Comment on above: Performed By: #### L 500.3400, L100.0100, L503.6005, L501.2450, L500.2500, L300.3900, L300.4310, L501.9100 ####[facility] [address] [place], [address] Serum or plasma ethanol luciana urement (mass/volume)Ordered By: Narendra Gonzalez on 06-30-2024 Ethanol [Mass/Vol] mg/dL <10.1 [facility] Squamous epithelial cells de tection in urine sediment by light microscopyOrdered By: Narendra Gonzalez on 06-30-2024 Epithelial cells.squamous LM Ql (Urine sed) 0-5 SEEN /hpf 0-5 [facility] Troponin T.cardiac [Mass/vol ume] in Serum or Plasma by High sensitivity methodOrdered By: Conrado Fraser on 06-30-2024 Troponin T.cardiac High sensitivity method [Mass/Vol] 98 ng/L High <22 [facility] Troponin T.cardiac High sensitivity method [Mass/Vol] 93 ng/L High <22 [facility] Urinalysis, Completeon 06-30 EPI,SQUAMOUS 0-5 SEEN Normal 0-5 [facility] Comment on above: Order Comment: CLEAN CATCH Performed By: #### L 400.0001 ####[facility] [address] [place], [address] RBC 0-5 SEEN Normal 0-5 [facility] Comment on above: Order Comment: CLEAN CATCH Performed By: #### L 400.0001 ####[facility] [address] [place], [address] WBC 0-5 SEEN Normal 0-5 [facility] Comment on above: Order Comment: CLEAN CATCH Performed By: #### L 400.0001 ####[facility] [address] [place], [address] BACTERIA 0 SEEN Normal None Seen [facility] Comment on above: Order Comment: CLEAN CATCH Performed By: #### L 400.0001 ####[facility] [address] [place], [address] Mucus Ql (Urine sed) 0 SEEN Normal [facility] Comment on above: Order Comment: CLEAN CATCH Performed By: #### L 400.0001 ####[facility] [address] [place], [address] Urine clarityOrdered By: Abrahan Gonzalez on 06-30-2024 Clarity (U) Sl. Cloudy Clear [facility] Urine color determinationOrd ered By: Narendra Gonzalez on 06-30-2024 Color (U) Yellow Yellow [facility] Urine glucose detectionOrder ed By: Narendra Gonzalez on 06-30-2024 Glucose Ql (U) Normal mg/dl Normal [facility] Urine leukocyte esterase det ection by dipstickOrdered By: Narendra Gonzalez on 06-30-2024 Leukocyte esterase Test strip Ql (U) 25 /ul High Negative [facility] Urine pHOrdered By: Narendra velasquez on 06-30-2024 pH (U) 6.0 [pH] 5.0 - 8.0 [facility] Urine sediment bacteria coun t by microscopy (number/high power field)Ordered By: Narendra Gonzalez on 06-30-2024 Bacteria LM.HPF (Urine sed) [#/Area] 0 /[HPF] None Seen [facility] Urine specific gravity measu rementOrdered By: Narendra Gonzalez on 06-30-2024 Specific gravity (U) [Rel density] 1.020 1.002-1.030 [facility] Urine urobilinogen measureme ntOrdered By: Narendra Gonzalez on 06-30-2024 Urobilinogen Ql (U) Normal mg/dl Normal [facility] Venous Blood Gason Blood Gas Type ROSA Normal [facility] Comment on above: Performed By: #### L 9000.0810 ####[facility] [address] [facility] [place] [address] CO2 [Moles/Vol] 29 mmol/L Normal - [facility] Comment on above: Performed By: #### L 9000.0810 ####[facility] [address] [place], [address] HCO3 (Bld) [Moles/Vol] 28 mmol/L High - [facility] Comment on above: Performed By: #### L 9000.0810 ####[facility] [address] [place], [address] O2 Delivery Dev Room Air Normal [facility] Comment on above: Performed By: #### L 9000.0810 ####[facility] [address] [place], [address] SITE Not entered Normal [facility] Comment on above: Performed By: #### L 9000.0810 ####[facility] [address] [place], [address] VBG BE 2 mmol/L Normal -1.0-3.5 [facility] Comment on above: Performed By: #### L 9000.0810 ####[facility] [address] [place], [address] VBG pCO2 51.8 mmHg High 41-51 [facility] Comment on above: Performed By: #### L 9000.0810 ####[facility] [address] [place], [place], [address] VBG pH 7.34 Normal 7.32-7.42 [facility] Comment on above: Performed By: #### L 9000.0810 ####[facility] [address] [place], [place], [address] VBG PO2 24 mmHg Low 25-40 [facility] Comment on above: Performed By: #### L 9000.0810 ####[facility] [address] [place], [address] VBG SO2 37 Low 50-70 [facility] Comment on above: Performed By: #### L 9000.0810 ####[facility] [address] [place], [address] Venous blood base excess mine surementOrdered By: Conrado Fraser on 06-30-2024 Base excess Calc (BldV) [Moles/Vol] 2 mmol/L -1.0-3.5 [facility] Venous blood bicarbonate mine surementOrdered By: Conrado Fraser on 06-30-2024 HCO3 (Bld) [Moles/Vol] 28 mmol/L High 22-26 [facility] Venous blood pH measurementO rdered By: Conrado Fraser on 06-30-2024 pH (BldV) 7.34 [pH] 7.32-7.42 [facility] Venous blood partial pressur e of carbon dioxide measurementOrdered By: Conrado Fraser on 06-30-2024 CO2 (BldV) [Partial pressure] 51.8 mm[Hg] High 41-51 [facility] Venous blood partial pressur e of oxygen measurementOrdered By: Conrado Fraser on 06-30-2024 Oxygen (BldV) [Partial pressure] 24 mm[Hg] Low 25-40 [facility] White blood cell countOrdere d By: Narendra Gonzalez on 06-30-2024 White blood cell count 0-5 SEEN /hpf 0-5 [facility] Absolute lymphocyte countOrd ered By: Melonie De La Rosa on 06-28-2024 Lymphocytes Auto (Unsp spec) [#/Vol] 1.11 10*3/uL 0.83-4.51 [facility] Absolute neutrophil countOrd ered By: Melonie De La Rosa on 06-28-2024 Neutrophils (Bld) [#/Vol] 3.5 10*3/uL 2.0-7.7 [facility] Anion gap in Serum or Plasma Ordered By: Melonie De La Rosa on 06-28-2024 Anion gap [Moles/Vol] 7 mmol/L 5-15 [facility] Automated lymphocyte count a s percentage of total leukocytesOrdered By: Melonie De La Rosa on 06-28-2024 Lymphocytes/100 WBC Auto (Unsp spec) 21.1 % 19-41 [facility] BUN/creatinine ratioOrdered By: Melonie De La Rosa on 06-28-2024 Urea nitrogen/Creatinine [Mass ratio] 7.0 mg/mg Low 10- [facility] Basic Metabolic Profile (BMP )on 06-28-2024 BUN/CRE 7.0 RATIO Low - [facility] Comment on above: Performed By: #### L 500.2500, L100.0100 ####[facility] [address] [place], [address] Calcium [Mass/Vol] 7.7 mg/dL Normal 7.6-11.0 [facility] Comment on above: Performed By: #### L 500.2500, L100.0100 ####[facility] [address] [place], [address] Chloride [Moles/Vol] 107 mmol/L Normal 98-108 [facility] Comment on above: Performed By: #### L 500.2500, L100.0100 ####[facility] [address] [place], [address] CO2 [Moles/Vol] 25.1 mmol/L Normal 21.0-32.0 [facility] Comment on above: Performed By: #### L 500.2500, L100.0100 ####[facility] [address] [place], [address] Creatinine [Mass/Vol] 1.11 mg/dL Normal 0.70-1.20 [facility] Comment on above: Performed By: #### L 500.2500, L100.0100 ####[facility] [address] [place], [address] ECRCL 74.04 ml/min Normal 50-250 [facility] Comment on above: Performed By: #### L 500.2500, L100.0100 ####[facility] [address] [place], [address] GAP 7 Normal 5-15 [facility] Comment on above: Performed By: #### L 500.2500, L100.0100 ####[facility] [address] [place], [address] GFR/1.73 sq M.predicted among non-blacks MDRD (S/P/Bld) [Vol rate/Area] 76 mL/min/{1.73_m2} Normal >60 [facility] Comment on above: Result Comment: mL/m in/1.73m2 CKD-EPI Creatinine Equation (2020) Performed By: #### L 500.2500, L100.0100 ####[facility] [address] [place], [address] Glucose [Mass/Vol] 187 mg/dL High 70-99 [facility] Comment on above: Performed By: #### L 500.2500, L100.0100 ####[facility] [address] [place], [address] Potassium [Moles/Vol] 4.1 mmol/L Normal 3.3-5.1 [facility] Comment on above: Result Comment: Hemo lysis present, Results??could be affected.?? Performed By: #### L 500.2500, L100.0100 ####[facility] [address] [place], [address] Sodium [Moles/Vol] 139 mmol/L Normal 133-145 [facility] Comment on above: Performed By: #### L 500.2500, L100.0100 ####[facility] [address] [place], [address] Urea nitrogen [Mass/Vol] 8 mg/dL Normal 4-19 [facility] Comment on above: Performed By: #### L 500.2500, L100.0100 ####[facility] [address] [place], [address] Basophil percentageOrdered B y: Melonie De La Rosa on 06-28-2024 Basophils/100 WBC (Bld) 0.9 % 0-[address] [facility] Bedside Glucoseon 06-28-2024 FINGERSTICK GLU 252 mg/dL High 74-106 [facility] Comment on above: Result Comment: DAYANARA MORENO OF PATIENT CARE PER NURSING PROTOCOL Performed By: #### L 501.080 ####[facility] [address] [place], [address] FINGERSTICK GLU 161 mg/dL High 74-106 [facility] Comment on above: Result Comment: DAYANARA MORENO OF PATIENT CARE PER NURSING PROTOCOL Performed By: #### L 501.080 ####[facility] [address] [place], [address] CBC W/Diff, Automatedon 05-2 Absolute Lymph 1.11 X10 3/uL Normal 0.83-4.51 [facility] Comment on above: Performed By: #### L 500.2500, L100.0100 ####[facility] [address] [place], [address] Absolute Neut 3.5 X10 3/uL Normal 2.0-7.7 [facility] Comment on above: Performed By: #### L 500.2500, L100.0100 ####[facility] [address] [place], [address] Basophils/100 WBC (Bld) 0.9 % Normal 0-[address] [facility] Comment on above: Performed By: #### L 500.2500, L100.0100 ####[facility] [address] [place], [address] Eosinophils/100 WBC (Bld) 0.9 % Normal 0-5 [facility] Comment on above: Performed By: #### L 500.2500, L100.0100 ####[facility] [address] [place], [address] Erythrocyte distribution width (RBC) [Ratio] 17.0 % High 11.6-14.6 [facility] Comment on above: Performed By: #### L 500.2500, L100.0100 ####[facility] [address] [place], [address] Hematocrit (Bld) [Volume fraction] 28.9 % Low 40-54 [facility] Comment on above: Performed By: #### L 500.2500, L100.0100 ####[facility] [address] [place], [address] Hemoglobin (Bld) [Mass/Vol] 9.5 g/dL Low 13.0-16.5 [facility] Comment on above: Performed By: #### L 500.2500, L100.0100 ####[facility] [address] [place], [address] IG% 0.400 Normal 0.0-0.9 [facility] Comment on above: Result Comment: IG% - Immature Granulocytes (promyelocytes, myelocytes andmetamyelocytes) > 1% indicates that a LEFT SHIFT is Present. Performed By: #### L 500.2500, L100.0100 ####[facility] [address] [place], [address] Lymphocytes/100 WBC (Bld) 21.1 % Normal 19-41 [facility] Comment on above: Performed By: #### L 500.2500, L100.0100 ####[facility] [address] [place], [address] MCH (RBC) [Entitic mass] 35.7 pg High 27.0-32.0 [facility] Comment on above: Performed By: #### L 500.2500, L100.0100 ####[facility] [address] [place], [address] MCHC (RBC) [Mass/Vol] 32.9 g/dL Normal 32-36 [facility] Comment on above: Performed By: #### L 500.2500, L100.0100 ####[facility] [address] [place], [address] MCV (RBC) [Entitic vol] 108.6 fL High 80-[address] [facility] Comment on above: Performed By: #### L 500.2500, L100.0100 ####[facility] [address] [place], [address] Monocytes/100 WBC (Bld) 9.9 % Normal 0-[address] [facility] Comment on above: Performed By: #### L 500.2500, L100.0100 ####[facility] [address] [place], [address] Neutrophils/100 WBC (Bld) 66.8 % Normal 47-70 [facility] Comment on above: Performed By: #### L 500.2500, L100.0100 ####[facility] [address] [place], [address] Nucleated RBC (Bld) [#/Vol] 0.4 10*3/uL Normal 0-5 [facility] Comment on above: Performed By: #### L 500.2500, L100.0100 ####[facility] [address] [place], [address] Platelet mean volume (Bld) [Entitic vol] 11.4 fL Normal 6.2-12.0 [facility] Comment on above: Performed By: #### L 500.2500, L100.0100 ####[facility] [address] [place], [address] Platelets (Bld) [#/Vol] 129 10*3/uL Low 150-450 [facility] Comment on above: Performed By: #### L 500.2500, L100.0100 ####[facility] [address] [place], [address] RBC (Bld) [#/Vol] 2.66 10*6/uL Low 4.6-6.2 [facility] Comment on above: Performed By: #### L 500.2500, L100.0100 ####[facility] [address] [place], [address] RDW SD 68.0 fl High 35.1-43.9 [facility] Comment on above: Performed By: #### L 500.2500, L100.0100 ####[facility] [address] [place], [address] WBC (Bld) [#/Vol] 5.3 10*3/uL Normal 4.4-11.0 [facility] Comment on above: Performed By: #### L 500.2500, L100.0100 ####[facility] [address] [place], [address] Carbon dioxide, total [Moles /volume] in Central venous bloodOrdered By: Melonie De La Rosa on 06-28-2024 CO2 [Moles/Vol] 25.1 mmol/L 21.0-32.0 [facility] Chloride assayOrdered By: Anel De La Rosa on 06-28-2024 Chloride [Moles/Vol] 107 mmol/L 98-108 [facility] Eosinophil percentageOrdered By: Melonie De La Rosa on 06-28-2024 Eosinophils/100 WBC (Bld) 0.9 % 0-5 [facility] Erythrocyte distribution wid th ratioOrdered By: Melonie De La Rosa on 06-28-2024 Erythrocyte distribution width (RBC) [Ratio] 17.0 % High 11.6-14.6 [facility] Erythrocyte distribution wid th standard deviationOrdered By: Melonie De La Rosa on 06-28-2024 Erythrocyte distribution width (RBC) [Ratio] 68.0 fl High 35.1-43.9 [facility] Glomerular filtration rate ( GFR) estimation/1.73 sq m using serum, plasma, or whole bOrdered By: Melonie De La Rosa on 06-28-2024 GFR/1.73 sq M.predicted among non-blacks MDRD (S/P/Bld) [Vol rate/Area] 76 mL/min/{1.73_m2} >60 [facility] Comment on above: mL/min/1.73m2 CKD-EP I Creatinine Equation (2020) [facility] deOrdered By: Melonie De La Rosa on 06-28-2024 Glucose [Mass/Vol] 252 mg/dL High 74-106 [facility] Comment on above: MANAGEMENT OF PATIEN T CARE PER NURSING PROTOCOL Hematocrit Auto (Bld) [Volum e fraction]Ordered By: Melonie De La Rosa on 06-28-2024 Hematocrit (Bld) [Volume fraction] 28.9 % Low 40-54 [facility] Hemoglobin measurementOrdere d By: Melonie De La Rosa on 06-28-2024 Hemoglobin (Bld) [Mass/Vol] 9.5 g/dL Low 13.0-16.5 [facility] Immature granulocytes/100 WB C Auto (Bld)Ordered By: Melonie De La Rosa on 06-28-2024 Immature granulocytes/100 WBC (Bld) 0.400 % 0.0-0.9 [facility] Comment on above: IG% - Immature Granu locytes (promyelocytes, myelocytes and metamyelocytes) > 1% indicates that a LEFT SHIFT is Present. MCV (mean corpuscular volume ) determinationOrdered By: Melonie De La Rosa on 06-28-2024 MCV (RBC) [Entitic vol] 108.6 fL High 80-[address] [facility] Mean corpuscular hemoglobin (MCH) determinationOrdered By: Melonie De La Rosa on 06-28-2024 MCH (RBC) [Entitic mass] 35.7 pg High 27.0-32.0 [facility] Mean corpuscular hemoglobin concentration (MCHC) determinationOrdered By: Melonie De La Rosa on 06-28-2024 MCHC (RBC) [Mass/Vol] 32.9 g/dL 32-36 [facility] Mean platelet volume determi nationOrdered By: Melonie De La Rosa on 06-28-2024 Platelet mean volume (Bld) [Entitic vol] 11.4 fL 6.2-12.0 [facility] Monocyte percentageOrdered B y: Melonie De La Rosa on 06-28-2024 Monocytes/100 WBC (Bld) 9.9 % 0-[address] [facility] Neutrophil percentageOrdered By: Melonie De La Rosa on 06-28-2024 Neutrophils/100 WBC (Bld) 66.8 % 47-70 [facility] Nucleated red blood cell per centageOrdered By: Melonie De La Rosa on 06-28-2024 Nucleated RBC/100 WBC (Bld) [Ratio] 0.4 % 0-5 [facility] Platelet countOrdered By: Anel De La Rosa on 06-28-2024 Platelets (Bld) [#/Vol] 129 10*3/uL Low 150-450 [facility] Potassium measurement (mass/ volume)Ordered By: Melonie De La Rosa on 06-28-2024 Potassium (Unsp spec) [Mass/Vol] 4.1 mmol/L 3.3-5.1 [facility] Comment on above: Hemolysis present, R esults could be affected. RBC Auto (Bld) [#/Vol]Ordere d By: Melonie De La Rosa on 06-28-2024 RBC (Bld) [#/Vol] 2.66 10*6/uL Low 4.6-6.2 [facility] Serum creatinine measurement (mass/volume)Ordered By: Melonie De La Rosa on 06-28-2024 Creatinine [Mass/Vol] 1.11 mg/dL 0.70-1.20 [facility] Serum glucose measurement (m ass/volume)Ordered By: Melonie De La Rosa on 06-28-2024 Glucose [Mass/Vol] 187 mg/dL High 70-99 [facility] Serum or plasma calcium luciana urement (mass/volume)Ordered By: Melonie De La Rosa on 06-28-2024 Calcium [Mass/Vol] 7.7 mg/dL 7.6-11.0 [facility] Serum or plasma urea nitroge n measurement (mass/volume)Ordered By: Melonie De La Rosa on 06-28-2024 Urea nitrogen [Mass/Vol] 8 mg/dL 4-19 [facility] Sodium levelOrdered By: Savannah De La Rosa on 06-28-2024 Sodium [Moles/Vol] 139 mmol/L 133-145 [facility] White blood cell (WBC) count Ordered By: Melonie De La Rosa on 06-28-2024 WBC (Bld) [#/Vol] 5.3 10*3/uL 4.4-11.0 [facility] Activated partial thrombopla stin time (aPTT) in platelet poor plasma by coagulation aOrdered By: Carlos Yanes on 06-27-2024 aPTT Coag (PPP) [Time] 30.2 s 24.1-36.2 [facility] Basic Metabolic Profile (BMP )on 06-27-2024 BUN/CRE 6.6 RATIO Low 10-20 [facility] Comment on above: Performed By: #### L 500.2500, L501.2300, L501.5200 ####[facility] [address] [place], [address] Calcium [Mass/Vol] 7.3 mg/dL Low 7.6-11.0 [facility] Comment on above: Performed By: #### L 500.2500, L501.2300, L501.5200 ####[facility] [address] [place], [address] Chloride [Moles/Vol] 109 mmol/L High 98-108 [facility] Comment on above: Performed By: #### L 500.2500, L501.2300, L501.5200 ####[facility] [address] [place], [address] CO2 [Moles/Vol] 25.2 mmol/L Normal 21.0-32.0 [facility] Comment on above: Performed By: #### L 500.2500, L501.2300, L501.5200 ####[facility] [address] [place], [address] Creatinine [Mass/Vol] 1.07 mg/dL Normal 0.70-1.20 [facility] Comment on above: Performed By: #### L 500.2500, L501.2300, L501.5200 ####[facility] [address] [place], [address] ECRCL 77.11 ml/min Normal 50-250 [facility] Comment on above: Performed By: #### L 500.2500, L501.2300, L501.5200 ####[facility] [address] [place], [address] GAP 8 Normal 5-15 [facility] Comment on above: Performed By: #### L 500.2500, L501.2300, L501.5200 ####[facility] [address] [place], [address] GFR/1.73 sq M.predicted among non-blacks MDRD (S/P/Bld) [Vol rate/Area] 79 mL/min/{1.73_m2} Normal >60 [facility] Comment on above: Result Comment: mL/m in/1.73m2 CKD-EPI Creatinine Equation (2020) Performed By: #### L 500.2500, L501.2300, L501.5200 ####[facility] [address] [place], [address] Glucose [Mass/Vol] 134 mg/dL High 70-99 [facility] Comment on above: Performed By: #### L 500.2500, L501.2300, L501.5200 ####[facility] [address] [place], [address] Potassium [Moles/Vol] 3.5 mmol/L Normal 3.3-5.1 [facility] Comment on above: Performed By: #### L 500.2500, L501.2300, L501.5200 ####[facility] [address] [place], [address] Sodium [Moles/Vol] 142 mmol/L Normal 133-145 [facility] Comment on above: Performed By: #### L 500.2500, L501.2300, L501.5200 ####[facility] [address] [place], [address] Urea nitrogen [Mass/Vol] 7 mg/dL Normal 4-19 [facility] Comment on above: Performed By: #### L 500.2500, L501.2300, L501.5200 ####[facility] [address] [place], [address] Bedside Glucoseon 06-27-2024 FINGERSTICK GLU 216 mg/dL High 74-106 [facility] Comment on above: Result Comment: DAYANARA GEMENT OF PATIENT CARE PER NURSING PROTOCOL Performed By: #### L 501.080 ####[facility] [address] [place], [address] FINGERSTICK GLU 122 mg/dL High [address] [place] [address] Comment on above: Result Comment: DAYANARA GEMENT OF PATIENT CARE PER NURSING PROTOCOL Performed By: #### L 501.080 ####[facility] [address] [place], [address] FINGERSTICK GLU 111 mg/dL High -106 [facility] Comment on above: Result Comment: DAYANARA GEMENT OF PATIENT CARE PER NURSING PROTOCOL Performed By: #### L 501.080 ####[facility] [address] [place], [address] FINGERSTICK GLU 209 mg/dL High [facility]106 [facility] Comment on above: Result Comment: DAYANARA GEMENT OF PATIENT CARE PER NURSING PROTOCOL Performed By: #### L 501.080 ####[facility] [address] [place], [address] FINGERSTICK GLU 131 mg/dL High [address] [place] [address] Comment on above: Result Comment: DAYANARA GEMENT OF PATIENT CARE PER NURSING PROTOCOL Performed By: #### L 501.080 ####[facility] [address] [place], [address] Body Fluid Culton 06-27-2024 BFC Culture exhibits no growth. Normal [facility] Comment on above: Performed By: #### M 100.2000, M100.2900, M100.4001 ####[facility] [address] [place], [address] CBC W/Diff, AutomatedOrdered By: Melonie De La Rosa on 06-27-2024 Anisocytosis Ql (Bld) 1+ Normal [facility] Comment on above: Performed By: #### L 100.0100 ####[facility] [address] [place], [address] EGD Reporton 06-27-2024 EGD Report Normal [facility] Glucose, Body Fluidon 2024 GLUC, BODY FLD 201 mg/dL Normal Not Establ. [facility] Comment on above: Performed By: #### L 503.0100 ####[facility] [address] [place], [address] Gram Stainon 06-27-2024 GS Gram Stain No organisms seen Normal [facility] Comment on above: Performed By: #### M 100.2000, M100.2900, M100.4001 ####[facility] [address] [place], [address] Immunohistochemical Stainson 06-27-2024 Immunohistochemical Stains Normal [facility] Comment on above: Performed By: #### P IMHI ####[facility] [address] [place], [address] International normalized rat io (INR) calculationOrdered By: Carlos Yanes on 06-27-2024 INR Coag (Bld) [Relative time] 1.4 {INR} [facility] MR/POSTOP.ANEon 06-27-2024 MR/POSTOP.ANE Normal [facility] MR/GWAIADJT6an 06-27-2024 MR/POSTOPAN2 Normal [facility] Magnesiumon 06-27-2024 Magnesium [Mass/Vol] 1.5 mg/dL Normal 1.5-2.2 [facility] Comment on above: Performed By: #### L 500.2500, L501.2300, L501.5200 ####[facility] [address] [place], [address] Magnesium measurement (mass/ volume)Ordered By: Melonie De La Rosa on 06-27-2024 Magnesium (Unsp spec) [Mass/Vol] 1.5 mg/dL 1.5-2.2 [facility] No Panel InformationOrdered By: Melonie De La Rosa on 06-27-2024 1+ [facility] Partial Thromboplast Timeon 06-27-2024 aPTT Coag (Bld) [Time] 30.2 s Normal 24.1-36.2 [facility] Comment on above: Performed By: #### L 300.4310, L300.3900 ####[facility] [address] [place], [address] Phosphoruson 06-27-2024 Phosphate [Mass/Vol] 2.7 mg/dL Normal 2.7-4.5 [facility] Comment on above: Performed By: #### L 500.2500, L501.2300, L501.5200 ####[facility] [address] [place], [address] Protein, Body Fluidon 2024 Protein [Mass/Vol] 0.3 g/dL Normal Not Establ. [facility] Comment on above: Performed By: #### L 503.0300 ####[facility] [address] [place], [address] Prothrombin Time w/INRon INR Coag (PPP) [Relative time] 1.4 {INR} Normal [facility] Comment on above: Performed By: #### L 300.4310, L300.3900 ####[facility] [address] [place], [address] Prothrombin timeOrdered By: Carlos Yanes on 06-27-2024 PT Coag (PPP) [Time] 17.4 s High 11.7-14.9 [facility] Comment on above: Performed By: #### L 300.4310, L300.3900 ####[facility] [address] [place], [address] Anaerobic cultureOrdered By: Melonie De La Rosa on 06-26-2024 Bacteria identified Anaer cx Nom (Unsp spec) No growth in 5 days. [facility] Bedside Glucoseon 06-26-2024 FINGERSTICK GLU 201 mg/dL High 74-106 [facility] Comment on above: Result Comment: DAYANARA GEMENT OF PATIENT CARE PER NURSING PROTOCOL Performed By: #### L 501.080 ####[facility] [address] [facility] [place] [address] FINGERSTICK GLU 138 mg/dL High [address] [facility] Comment on above: Result Comment: DAYANARA GEMENT OF PATIENT CARE PER NURSING PROTOCOL Performed By: #### L 501.080 ####[facility] [address] [facility] [place] [address] FINGERSTICK GLU 172 mg/dL High -106 [facility] Comment on above: Result Comment: DAYANARA GEMENT OF PATIENT CARE PER NURSING PROTOCOL Performed By: #### L 501.080 ####[facility] [address] [facility] [address] FINGERSTICK GLU 197 mg/dL High [address] [place] [address] Comment on above: Result Comment: DAYANARA GEMENT OF PATIENT CARE PER NURSING PROTOCOL Performed By: #### L 501.080 ####[facility] [address] [facility] [address] Bilirubin directOrdered By: Carlos Yanes on 06-26-2024 Bilirubin.direct [Mass/Vol] 0.23 mg/dL 0.00-0.30 [facility] Bilirubin, totalOrdered By: Carlos Yanes on 06-26-2024 Bilirubin [Mass/Vol] 0.42 mg/dL 0.00-1.30 [facility] Body fluid appearance (nomin al result)Ordered By: Melonie De La Rosa on 06-26-2024 Appearance (Body fld) CLEAR [facility] Body fluid color determinati onOrdered By: Melonie De La Rosa on 06-26-2024 Color (Body fld) YELLOW [facility] Body fluid cultureOrdered By : Melonie De La Rosa on 06-26-2024 Microbial culture, body fluid Culture exhibits no growth. [facility] Body fluid leukocytes count (number/volume)Ordered By: Melonie De La Rosa on 06-26-2024 WBC (Body fld) [#/Vol] 0.010 10*3/uL [facility] Body fluid lymphocytes/100 l eukocytesOrdered By: Melonie De La Rosa on 06-26-2024 Lymphocytes/100 WBC (Body fld) 17 % [facility] Body fluid macrophage countO rdered By: Melonie De La Rosa on 06-26-2024 Macrophages (Body fld) [#/Vol] 56 % [facility] Body fluid mesothelial cell percentageOrdered By: Melonie De La Rosa on 06-26-2024 Mesothelial cells/100 WBC (Body fld) 21 % [facility] Body fluid mononuclear cell percentageOrdered By: Melonie De La Rosa on 06-26-2024 Mononuclear cells/100 WBC (Body fld) 90.0 % [facility] Body fluid protein measureme nt (mass/volume)Ordered By: Melonie De La Rosa on 06-26-2024 Protein (Body fld) [Mass/Vol] 0.3 g/dL Not Establ. [facility] Body fluid segmented neutrop hils count (number/volume)Ordered By: Melonie De La Rosa on 06-26-2024 Segmented neutrophils (Body fld) [#/Vol] 6 % [facility] Body fluid total cell countO rdered By: Melonie De La Rosa on 06-26-2024 Cells Counted Total (Body fld) [#] 0.012 10^3/ul [facility] Comment on above: This is the Total Nu mber of Nucleated Cell Types in the Body Fluid. CBC W/Diff, Automatedon 06-08 Absolute Lymph 0.89 X10 3/uL Normal 0.83-4.51 [facility] Comment on above: Performed By: #### L 100.0100, L501.9520, L501.2300, L500.4050, L500.4100 ####[facility] [address] [place], [place], [address] Absolute Neut 3.3 X10 3/uL Normal 2.0-7.7 [facility] Comment on above: Performed By: #### L 100.0100, L501.9520, L501.2300, L500.4050, L500.4100 ####[facility] [address] [place], [address] Basophils/100 WBC (Bld) 0.8 % Normal 0-[address] [facility] Comment on above: Performed By: #### L 100.0100, L501.9520, L501.2300, L500.4050, L500.4100 ####[facility] [address] [place], [address] Eosinophils/100 WBC (Bld) 0.4 % Normal 0-5 [facility] Comment on above: Performed By: #### L 100.0100, L501.9520, L501.2300, L500.4050, L500.4100 ####[facility] [address] [place], [address] Erythrocyte distribution width (RBC) [Ratio] 16.3 % High 11.6-14.6 [facility] Comment on above: Performed By: #### L 100.0100, L501.9520, L501.2300, L500.4050, L500.4100 ####[facility] [address] [place], [address] Hematocrit (Bld) [Volume fraction] 27.1 % Low 40-54 [facility] Comment on above: Performed By: #### L 100.0100, L501.9520, L501.2300, L500.4050, L500.4100 ####[facility] [address] [place], [address] Hemoglobin (Bld) [Mass/Vol] 9.3 g/dL Low 13.0-16.5 [facility] Comment on above: Performed By: #### L 100.0100, L501.9520, L501.2300, L500.4050, L500.4100 ####[facility] [address] [place], [address] IG% 0.200 Normal 0.0-0.9 [facility] Comment on above: Result Comment: IG% - Immature Granulocytes (promyelocytes, myelocytes andmetamyelocytes) > 1% indicates that a LEFT SHIFT is Present. Performed By: #### L 100.0100, L501.9520, L501.2300, L500.4050, L500.4100 ####[facility] [address] [place], [address] Lymphocytes/100 WBC (Bld) 18.4 % Low 19-41 [facility] Comment on above: Performed By: #### L 100.0100, L501.9520, L501.2300, L500.4050, L500.4100 ####[facility] [address] [place], [address] MCH (RBC) [Entitic mass] 36.3 pg High 27.0-32.0 [facility] Comment on above: Performed By: #### L 100.0100, L501.9520, L501.2300, L500.4050, L500.4100 ####[facility] [address] [place], [address] MCHC (RBC) [Mass/Vol] 34.3 g/dL Normal 32-36 [facility] Comment on above: Performed By: #### L 100.0100, L501.9520, L501.2300, L500.4050, L500.4100 ####[facility] [address] [place], [address] MCV (RBC) [Entitic vol] 105.9 fL High 80-[address] [facility] Comment on above: Performed By: #### L 100.0100, L501.9520, L501.2300, L500.4050, L500.4100 ####[facility] [address] [place], [address] Monocytes/100 WBC (Bld) 11.8 % High 0-[address] [facility] Comment on above: Performed By: #### L 100.0100, L501.9520, L501.2300, L500.4050, L500.4100 ####[facility] [address] [place], [address] Neutrophils/100 WBC (Bld) 68.4 % Normal 47-70 [facility] Comment on above: Performed By: #### L 100.0100, L501.9520, L501.2300, L500.4050, L500.4100 ####[facility] [address] [place], [address] Nucleated RBC (Bld) [#/Vol] 0 10*3/uL Normal 0-5 [facility] Comment on above: Performed By: #### L 100.0100, L501.9520, L501.2300, L500.4050, L500.4100 ####[facility] [address] [place], [address] Platelet mean volume (Bld) [Entitic vol] 11.6 fL Normal 6.2-12.0 [facility] Comment on above: Performed By: #### L 100.0100, L501.9520, L501.2300, L500.4050, L500.4100 ####[facility] [address] [place], [address] Platelets (Bld) [#/Vol] 100 10*3/uL Low 150-450 [facility] Comment on above: Performed By: #### L 100.0100, L501.9520, L501.2300, L500.4050, L500.4100 ####[facility] [address] [place], [address] RBC (Bld) [#/Vol] 2.56 10*6/uL Low 4.6-6.2 [facility] Comment on above: Performed By: #### L 100.0100, L501.9520, L501.2300, L500.4050, L500.4100 ####[facility] [address] [place], [address] RDW SD 63.6 fl High 35.1-43.9 [facility] Comment on above: Performed By: #### L 100.0100, L501.9520, L501.2300, L500.4050, L500.4100 ####[facility] [address] [place], [address] WBC (Bld) [#/Vol] 4.8 10*3/uL Normal 4.4-11.0 [facility] Comment on above: Performed By: #### L 100.0100, L501.9520, L501.2300, L500.4050, L500.4100 ####[facility] [address] [place], [address] CDIFF (PCR)on 06-26-2024 CDIFF Normal [facility] Comment on above: Performed By: #### M 100.6796, M100.637, M100.0605 ####[facility] [address] [place], [address] CNPNon 06-26-2024 CNPN Telephone (AGFAMPLE) ANALILIA MELENDREZ ([id number]) 1960 M Date Time Provider Department 06/26/24 QUEDEN, MARIANNA A AGFAMPLE During your visit today, we recorded the [...] in. Please advise. FLORENTINO Jackson Brittny A, VIRIDIANA.HIGH SCHO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 06/26/2024 9:57 AM Signed Will address in next OV. Allergies As of Date: 06/26/2024 (No Known Allergies) Date Reviewed: 04/12/2024 Reviewed by: Vandana Edwards - Fully Assessed Reason for Visit: Lab Orders [9018] Prescriptions as of 06/26/2024 - UNIFINE PENTIPS 31 gauge x 3/16 [...] fourteen (14) days to upper arm. - zxygru-ktfhxzhi-vtsogkl (CREON 36) 36,000-114,000- 180,000 unit delayed release capsule Take 2 pills by mouth with first bite of meal and take 1 pill with snacks. Max 10 per day. - Cholecalciferol, Vitamin D3, (VITAMIN D-3) 50 mcg (2,000 unit) cap Take 1 capsule by mouth once daily. 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 Normal [facility] Calculated very low density lipoprotein (VLDL) cholesterol measurementOrdered By: Conrado Fraser on 06-26-2024 Calculated very low density lipoprotein (VLDL) cholesterol measurement 18 mg/dL 5-40 [facility] Comprehensive Metabolic Prof ilon 06-26-2024 Albumin [Mass/Vol] 2.1 g/dL Low 3.4-4.8 [facility] Comment on above: Performed By: #### L 100.0100, L501.9520, L501.2300, L500.4050, L500.4100 ####[facility] [address] [place], [address] Albumin/Globulin [Mass ratio] 1.0 {ratio} Normal 0.9-2.4 [facility] Comment on above: Performed By: #### L 100.0100, L501.9520, L501.2300, L500.4050, L500.4100 ####[facility] [address] [place], [address] ALK PHOS 102 U/L Normal 40-129 [facility] Comment on above: Performed By: #### L 100.0100, L501.9520, L501.2300, L500.4050, L500.4100 ####[facility] [address] [place], [address] ALT [Catalytic activity/Vol] 26 U/L Normal <=46 [facility] Comment on above: Performed By: #### L 100.0100, L501.9520, L501.2300, L500.4050, L500.4100 ####[facility] [address] [place], [address] AST [Catalytic activity/Vol] 49 U/L High <=37 [facility] Comment on above: Performed By: #### L 100.0100, L501.9520, L501.2300, L500.4050, L500.4100 ####[facility] [address] [place], [address] Bilirubin [Mass/Vol] 0.42 mg/dL Normal 0.00-1.30 [facility] Comment on above: Performed By: #### L 100.0100, L501.9520, L501.2300, L500.4050, L500.4100 ####[facility] [address] [place], [address] BUN/CRE 6.5 RATIO Low 10-20 [facility] Comment on above: Performed By: #### L 100.0100, L501.9520, L501.2300, L500.4050, L500.4100 ####[facility] [address] [place], [address] Calcium [Mass/Vol] 7.1 mg/dL Low 7.6-11.0 [facility] Comment on above: Performed By: #### L 100.0100, L501.9520, L501.2300, L500.4050, L500.4100 ####[facility] [address] [place], [address] Chloride [Moles/Vol] 107 mmol/L Normal 98-108 [facility] Comment on above: Performed By: #### L 100.0100, L501.9520, L501.2300, L500.4050, L500.4100 ####[facility] [address] [place], [address] CO2 [Moles/Vol] 24.9 mmol/L Normal 21.0-32.0 [facility] Comment on above: Performed By: #### L 100.0100, L501.9520, L501.2300, L500.4050, L500.4100 ####[facility] [address] [place], [address] Creatinine [Mass/Vol] 0.97 mg/dL Normal 0.70-1.20 [facility] Comment on above: Performed By: #### L 100.0100, L501.9520, L501.2300, L500.4050, L500.4100 ####[facility] [address] [place], [address] ECRCL 84.27 ml/min Normal 50-250 [facility] Comment on above: Performed By: #### L 100.0100, L501.9520, L501.2300, L500.4050, L500.4100 ####[facility] [address] [place], [address] GAP 10 Normal 5-15 [facility] Comment on above: Performed By: #### L 100.0100, L501.9520, L501.2300, L500.4050, L500.4100 ####[facility] [address] [place], [address] GFR/1.73 sq M.predicted among non-blacks MDRD (S/P/Bld) [Vol rate/Area] 88 mL/min/{1.73_m2} Normal >60 [facility] Comment on above: Result Comment: mL/m in/1.73m2 CKD-EPI Creatinine Equation (2020) Performed By: #### L 100.0100, L501.9520, L501.2300, L500.4050, L500.4100 ####[facility] [address] [place], [address] Globulin (S) [Mass/Vol] 2.1 g/dL Low 2.2-4.[address] [facility] Comment on above: Performed By: #### L 100.0100, L501.9520, L501.2300, L500.4050, L500.4100 ####[facility] [address] [place], [address] Glucose [Mass/Vol] 180 mg/dL High 70-99 [facility] Comment on above: Performed By: #### L 100.0100, L501.9520, L501.2300, L500.4050, L500.4100 ####[facility] [address] [place], [address] Potassium [Moles/Vol] 2.7 mmol/L Invalid Interpretation Code 3.3-5.1 [facility] Comment on above: Result Comment: Crit ical Result(s) Called at 0735: by: ESTEFANY GOLDMAN. ??Results read back by same. Performed By: #### L 100.0100, L501.9520, L501.2300, L500.4050, L500.4100 ####[facility] [address] [place], [address] Sodium [Moles/Vol] 142 mmol/L Normal 133-145 [facility] Comment on above: Performed By: #### L 100.0100, L501.9520, L501.2300, L500.4050, L500.4100 ####[facility] [address] [place], [address] T PROT 4.3 g/dL Low 5.9-8.4 [facility] Comment on above: Performed By: #### L 100.0100, L501.9520, L501.2300, L500.4050, L500.4100 ####[facility] [address] [place], [address] Urea nitrogen [Mass/Vol] 6 mg/dL Normal -19 [facility] Comment on above: Performed By: #### L 100.0100, L501.9520, L501.2300, L500.4050, L500.4100 ####[facility] [address] [place], [address] Cytology report of Body flui d Cyto stainOrdered By: Melonie De La Rosa on 06-26-2024 Cytology report Cyto stain Doc (Body fld) SEE PATHOLOGY REPORT [facility] ENTERIC PATHOGEN PANEL STOOL on 06-26-2024 EP PANEL Normal [facility] Comment on above: Performed By: #### M 100.6796, M100.637, M100.0605 ####[facility] [address] [place], [address] Electrocardiogram reportOrde red By: Trung Bob on 06-26-2024 [address] [facility] [address] [place] [address] 12 Lead EKG 06/25/241934 MR#: [id number] Acct: [id number] Name: ANALILIA MELENDREZ Rep #:[id number] : 1960 63 From: Trung Bob MD Attending Dr: DO Yesi Looney tatus: ADM IN Ordering Dr: Rolan Romero ate: 06/25/24 Location: [facility] Sex: M C Admitted: 06/25/24 Test [...] block Bifascicular block Abnormal ECG Confirmed by PAULINO FRANCISCO, TRUNG ([id number]), order editor CARLOS ROBLES ([id number]) on 06/26/2024 9:28:17 AM Referred By: Rolan Romero Confirmed By: TRUNG BOB MD 06/26/24 0928 Date _ Trung Bob MD CC: ALAN Wagner; Dr. Rolan Romero DO; Dr. Melonie D eLa Rosa DO ~ Signed [facility] Work Phone: Gram stainOrdered By: Palak DeL a Rosa on 06-26-2024 Microscopic observation Gram stain Nom (Unsp spec) [facility] Hemoglobin A1con 06-26-2024 HbA1c (Bld) [Mass fraction] 6.6 % High <=5.6 [facility] Comment on above: Result Comment: Norm al < 5.7 % Prediabetic 5.7 - 6.4 % Diabetic >or= 6.5 % Please note range changes. Performed By: #### L 501.9985, L503.6005, L505.5000, M600.5000, L501.5200 ####[facility] [address] [place], [address] LDL calc ser/plasOrdered By: Conrado Fraser on 06-26-2024 Cholesterol in LDL [Mass/Vol] 24 mg/dL Normal [facility] Comment on above: Msaeatkvwz=175-720 m g/dL & Higher Zgqx=120 mg/dL or greater Result Comment: Bord qnfhdd=998-763 mg/dL Higher Mhju=671 mg/dL or greater Performed By: #### L 100.0100, L501.9520, L501.2300, L500.4050, L500.4100 ####[facility] [address] [place], [address] Laboratory - Chemistry and C hemistry - challengeOrdered By: Carlos Yanes on 06-26-2024 AST [Catalytic activity/Vol] 49 U/L High <38 [facility] Lactic Acidon 06-26-2024 Lactate [Moles/Vol] 3.1 mmol/L Invalid Interpretation Code 0.0-2.0 [facility] Comment on above: Result Comment: Crit ical Result(s) Called at 0745: by: ESTEFANY GOLDMAN. ??Results read back by same. Performed By: #### L 503.6005 ####[facility] [address] [place], [address] Lactate [Moles/Vol] 4.7 mmol/L Invalid Interpretation Code 0.0-2.0 [facility] Comment on above: Order Comment: Y Result Comment: Crit ical Result(s) Called at: 06/26/2024-02:50 by: Khushi to Ann-Marie Mckeon.??Results read back by same. Performed By: #### L 501.9985, L503.6005, L505.5000, M600.5000, L501.5200 ####[facility] [address] [place], [address] Lactic acid measurementOrder ed By: Conrado Fraser on 06-26-2024 Lactate [Moles/Vol] 3.1 mmol/L High 0.0-2.0 [facility] Comment on above: Critical Result(s) C alled at 0745: by: ESTEFANY WHITTEN TO [facility]. Results read back by same. Lipid Profileon 06-26-2024 CHOL:HDL 2.29 Normal [facility] Comment on above: Performed By: #### L 100.0100, L501.9520, L501.2300, L500.4050, L500.4100 ####[facility] [address] [place], [address] Cholesterol in VLDL [Mass/Vol] 18 mg/dL Normal 5-40 [facility] Comment on above: Performed By: #### L 100.0100, L501.9520, L501.2300, L500.4050, L500.4100 ####[facility] [address] [place], [address] Liver Profileon 06-26-2024 Albumin [Mass/Vol] 2.0 g/dL Low 3.4-4.8 [facility] Comment on above: Performed By: #### L 500.3400 ####[facility] [address] [place], [address] ALK PHOS 99 U/L Normal 40-129 [facility] Comment on above: Performed By: #### L 500.3400 ####[facility] [address] [place], [address] ALT [Catalytic activity/Vol] 27 U/L Normal <=46 [facility] Comment on above: Performed By: #### L 500.3400 ####[facility] [address] [place], [address] AST [Catalytic activity/Vol] 49 U/L High <=37 [facility] Comment on above: Performed By: #### L 500.3400 ####[facility] [address] [place], [address] Bilirubin [Mass/Vol] 0.42 mg/dL Normal 0.00-1.30 [facility] Comment on above: Performed By: #### L 500.3400 ####[facility] [address] [place], [address] Bilirubin.direct [Mass/Vol] 0.23 mg/dL Normal 0.00-0.30 [facility] Comment on above: Performed By: #### L 500.3400 ####[facility] [address] [place], [address] Globulin (S) [Mass/Vol] 2.2 g/dL Normal 2.2-4.2 [facility] Comment on above: Performed By: #### L 500.3400 ####[facility] [address] [place], [address] T PROT 4.2 g/dL Low 5.9-8.4 [facility] Comment on above: Performed By: #### L 500.3400 ####[facility] [address] [place], [address] MR/CON.PCM.GIon 06-26-2024 MR/CON.PCM.GI Normal [facility] Magnesiumon 06-26-2024 Magnesium [Mass/Vol] 1.8 mg/dL Normal 1.5-2.2 [facility] Comment on above: Performed By: #### L 501.9985, L503.6005, L505.5000, M600.5000, L501.5200 ####[facility] [address] [place], [address] No Panel InformationOrdered By: Melonie De La Rosa on 06-26-2024 Body Fluid Comment 2 SEE COMMENT [facility] Comment on above: .INTERPRETATION OF R ESULTS: Differentiation of transudate and exudate fluid: TRANSUDATE EXUDATE Color- Clear,straw colored Clear,turbid,bloody,purulent RBCs- Usually none to few Often present in high numbers WBCs- Usually none to few Often present in high numbers DIFF Few lymphocytes or Lymphocytes, neutrophils, andCount- mesothelial cells. polymorphonuclear cells . Body Fluid RBC 35 /mm3 [facility] 35 /mm3 [facility] SEE COMMENT [facility] No Panel InformationOrdered By: Carlos Yanes on 06-26-2024 49 U/L High <38 [facility] Paracentesis with USon 06-26 Paracentesis with US Normal [facility] Pathologist interpretation o f Body fluid testsOrdered By: Melonie De La Rosa on 06-26-2024 Pathologist interpretation (Body fld) [Interp] May follow [facility] Pathologist interpretation (Body fld) [Interp] Reviewed [facility] Phosphoruson 06-26-2024 Phosphate [Mass/Vol] 2.3 mg/dL Low 2.7-4.5 [facility] Comment on above: Performed By: #### L 100.0100, L501.9520, L501.2300, L500.4050, L500.4100 ####[facility] [address] [place], [place], [address] Screening total cholesterol/ high density lipoprotein (HDL) cholesterol ratioOrdered By: Conrado Fraser on 06-26-2024 Cholesterol.total/Livia sterol in HDL [Mass ratio] 2.29 {ratio} [facility] Serum globulin measurementOr dered By: Carlos Yanes on 06-26-2024 Globulin (S) [Mass/Vol] 2.2 g/dL 2.2-4.[address] [facility] Serum or plasma alanine padilla otransferase (ALT) measurementOrdered By: Carlos Yanes on 06-26-2024 ALT [Catalytic activity/Vol] 27 U/L <47 [facility] Serum or plasma albumin luciana urement (mass/volume)Ordered By: Carlos Yanes on 06-26-2024 Albumin [Mass/Vol] 2.0 g/dL Low 3.4-4.8 [facility] Serum or plasma albumin/glob ulin mass ratioOrdered By: Conrado Fraser on 06-26-2024 Albumin/Globulin [Mass ratio] 1.0 {ratio} 0.9-2.4 [facility] Serum or plasma alkaline nolan sphatase measurementOrdered By: Carlos Yanes on 06-26-2024 ALP [Catalytic activity/Vol] 99 U/L 40-129 [facility] Serum or plasma cholesterol in HDL measurement (mass/volume)Ordered By: Conrado Fraser on 06-26-2024 Cholesterol in HDL [Mass/Vol] 32 mg/dL Low [facility] Comment on above: National Cholesterol Education [...] sex and age. Performed By: #### L 100.0100, L501.9520, L501.2300, L500.4050, L500.4100 ####[facility] [address] [place], [place], [address] Serum or plasma cholesterol measurement (mass/volume)Ordered By: Conrado Fraser on 06-26-2024 Cholesterol [Mass/Vol] 74 mg/dL Normal <=200 [facility] Comment on above: Cholesterol level, D esirable <200 mg/dLBorderline high cholesterol 200-239 mg/dLHigh cholesterol >=240 mg/dLRecommendations of the NCEP Adult Treatment Panel for the following risk-cutoff thresholds for the [place] population. Result Comment: Chol esterol level, Desirable <200 mg/dLBorderline high cholesterol 200-239 mg/dLHigh cholesterol >=240 mg/dLRecommendations of the NCEP Adult Treatment Panel for thefollowing risk-cutoff thresholds for the [place] American[place]ulation. Performed By: #### L 100.0100, L501.9520, L501.2300, L500.4050, L500.4100 ####[facility] [address] [place], [address] Specimen source identificati on of body fluidOrdered By: Melonie De La Rosa on 06-26-2024 Specimen source Nom (Body fld) PARACENTESIS [facility] Stool Lactoferrin/WBCon 06-08 WBCST Is the patient receiving laxatives? N Normal Reference Range = Negative Fecal WBC Lactoferrin Negative: No Fecal WBC Lactoferrin present Normal [facility] Comment on above: Performed By: #### M 100.6796, M100.637, M100.0605 ####[facility] [address] [place], [address] TSH DL <= 0.005 mIU/L QnOrde red By: Conrado Fraser on 06-26-2024 TSH Qn 1.740 uIU/mL 0.300-4.200 [facility] Thyroid Stim Hormone (TSH)on 06-26-2024 TSH 1.740 uIU/mL Normal 0.300-4.200 [facility] Comment on above: Performed By: #### L 100.0100, L501.9520, L501.2300, L500.4050, L500.4100 ####[facility] [address] [place], [place], [address] Total proteinOrdered By: Carlos Yanes on 06-26-2024 Protein [Mass/Vol] 4.2 g/dL Low 5.9-8.4 [facility] Triglycerides measurementOrd ered By: Conrado Fraser on 06-26-2024 Triglyceride [Mass/Vol] 89 mg/dL Normal [facility] Comment on above: The drugs N-Acetylcy steine and Metamizole may falsely depress this assay. Normal range: <150 mg/dLBorderline High: 150-199 mg/dLHigh: 200-499 mg/dLVery High: >500 mg/dL Result Comment: The drugs N-Acetylcysteine and Metamizole may falselydepress this assay.Normal range: <150 mg/dLBorderline High: 150-199 mg/dLHigh: 200-499 mg/dLVery High: >500 mg/dL Performed By: #### L 100.0100, L501.9520, L501.2300, L500.4050, L500.4100 ####[facility] [address] [place], [address] Urine Drug Screen (VISTA)on 06-26-2024 AMPHETAMINES Negative Normal <1000 ng/mL [facility] Comment on above: Performed By: #### L 501.9985, L503.6005, L505.5000, M600.5000, L501.5200 ####[facility] [address] [place], [address] BARBITIURATES Negative Normal < 200 ng/mL [facility] Comment on above: Performed By: #### L 501.9985, L503.6005, L505.5000, M600.5000, L501.5200 ####[facility] [address] [place], [address] BENZODIAZIPINE Negative Normal < 200 ng/mL [facility] Comment on above: Performed By: #### L 501.9985, L503.6005, L505.5000, M600.5000, L501.5200 ####[facility] [address] [place], [address] BUP Ur Drug Scr Negative Normal < 200 ng/mL [facility] Comment on above: Performed By: #### L 501.9985, L503.6005, L505.5000, M600.5000, L501.5200 ####[facility] [address] [place], [address] COCAINE Negative Normal < 300 ng/mL [facility] Comment on above: Performed By: #### L 501.9985, L503.6005, L505.5000, M600.5000, L501.5200 ####[facility] [address] [place], [place], [phone] Fentanyl Negative Normal [facility] Comment on above: Performed By: #### L 501.9985, L503.6005, L505.5000, M600.5000, L501.5200 ####[facility] [address] [place], [place], [phone] METHADONE Negative Normal < 300 ng/mL [facility] Comment on above: Performed By: #### L 501.9985, L503.6005, L505.5000, M600.5000, L501.5200 ####[facility] [address] [place], [place], [phone] OPIATES Negative Normal < 300 ng/mL [facility] Comment on above: Performed By: #### L 501.9985, L503.6005, L505.5000, M600.5000, L501.5200 ####[facility] [address] [place], [place], [phone] OXYCODONE Negative Normal < 100 ng/mL [facility] Comment on above: Performed By: #### L 501.9985, L503.6005, L505.5000, M600.5000, L501.5200 ####[facility] [address] [place], [place], [phone] PCP Negative Normal < 25 ng/mL [facility] Comment on above: Performed By: #### L 501.9985, L503.6005, L505.5000, M600.5000, L501.5200 ####[facility] [address] [place], [address] THC Negative Normal < 50 ng/mL [facility] Comment on above: Performed By: #### L 501.9985, L503.6005, L505.5000, M600.5000, L501.5200 ####[facility] [address] [place], [place], [address] 12 Lead EKGon 06-25-2024 12 Lead EKG Normal [facility] Abdomen/Pelvis W IV Cont ONL Yon 06-25-2024 Abdomen/Pelvis W IV Cont ONLY Normal [facility] Absolute lymphocyte countOrd ered By: Rolan Romero on 06-25-2024 Lymphocytes Auto (Unsp spec) [#/Vol] 1.05 10*3/uL 0.83-4.51 [facility] Absolute neutrophil countOrd ered By: Rolan Romero on 06-25-2024 Neutrophils (Bld) [#/Vol] 3.1 10*3/uL 2.0-7.7 [facility] Alcohol, Blood (Medical)-Ser umon 06-25-2024 SERUM ETOH < 10.1 Normal <=10.0 [facility] Comment on above: Result Comment: This test is for medical purposes only. The legaldefinition of intoxication varies according to local law. Performed By: #### L 501.9100 ####[facility] [address] [place], [place], [address] Amphetamine detection with 1 000 ng/mL as cutoffOrdered By: Conrado Fraser on 06-25-2024 Amphetamines Screen method >1000 ng/mL Ql (U) Negative < 200 ng/mL [facility] Anion gap in Serum or Plasma Ordered By: Rolan Romero on 06-25-2024 Anion gap [Moles/Vol] 16 mmol/L High 5-15 [facility] Automated lymphocyte count a s percentage of total leukocytesOrdered By: Rolan Romero on 06-25-2024 Lymphocytes/100 WBC Auto (Unsp spec) 22.1 % 19-41 [facility] BUN/creatinine ratioOrdered By: Rolan Romero on 06-25-2024 Urea nitrogen/Creatinine [Mass ratio] 6.5 mg/mg Low 10-20 [facility] Basophil percentageOrdered B y: Rolan Romero on 06-25-2024 Basophils/100 WBC (Bld) 0.6 % 0-[address] [facility] Bedside Glucoseon 06-25-2024 FINGERSTICK GLU 277 mg/dL High 74-106 [facility] Comment on above: Result Comment: DAYANARA GEMENT OF PATIENT CARE PER NURSING PROTOCOL Performed By: #### L 501.080 ####[facility] [address] [place], [address] FINGERSTICK GLU 348 mg/dL High 74-106 [facility] Comment on above: Result Comment: DAYANARA GEMENT OF PATIENT CARE PER NURSING PROTOCOL Performed By: #### L 501.080 ####[facility] [address] [place], [address] Beta-Hydroxbytyrateon 2024 BETA-HYDROXYBUT 0.1 mmol/L Normal 0.0-0.3 [facility] Comment on above: Performed By: #### L 501.5600, L501.6901, L501.5200 ####[facility] [address] [place], [address] Beta-hydroxybutyrateOrdered By: Rolan Romero on 06-25-2024 Beta hydroxybutyrate [Mass/Vol] 0.1 mmol/L 0.0-0.3 [facility] Bilirubin Test strip Ql (U)O rdered By: Rolan Romero on 06-25-2024 Bilirubin Ql (U) Negative Negative [facility] Bilirubin, totalOrdered By: Rolan Romero on 06-25-2024 Bilirubin [Mass/Vol] 0.46 mg/dL 0.00-1.30 [facility] CBC W/Diff, Automatedon 06-08 Absolute Lymph 1.05 X10 3/uL Normal 0.83-4.51 [facility] Comment on above: Performed By: #### L 100.0100 ####[facility] [address] [place], [address] Absolute Neut 3.1 X10 3/uL Normal 2.0-7.7 [facility] Comment on above: Performed By: #### L 100.0100 ####[facility] [address] [place], [address] Basophils/100 WBC (Bld) 0.6 % Normal 0-[address] [facility] Comment on above: Performed By: #### L 100.0100 ####[facility] [address] [place], [address] Eosinophils/100 WBC (Bld) 0.2 % Normal 0-5 [facility] Comment on above: Performed By: #### L 100.0100 ####[facility] [address] [place], [address] Erythrocyte distribution width (RBC) [Ratio] 16.2 % High 11.6-14.6 [facility] Comment on above: Performed By: #### L 100.0100 ####[facility] [address] [place], [address] Hematocrit (Bld) [Volume fraction] 29.8 % Low 40-54 [facility] Comment on above: Performed By: #### L 100.0100 ####[facility] [address] [place], [address] Hemoglobin (Bld) [Mass/Vol] 10.1 g/dL Low 13.0-16.5 [facility] Comment on above: Performed By: #### L 100.0100 ####[facility] [address] [place], [address] IG% 0.200 Normal 0.0-0.9 [facility] Comment on above: Result Comment: IG% - Immature Granulocytes (promyelocytes, myelocytes andmetamyelocytes) > 1% indicates that a LEFT SHIFT is Present. Performed By: #### L 100.0100 ####[facility] [address] [place], [address] Lymphocytes/100 WBC (Bld) 22.1 % Normal 19-41 [facility] Comment on above: Performed By: #### L 100.0100 ####[facility] [address] [place], [address] MCH (RBC) [Entitic mass] 36.1 pg High 27.0-32.0 [facility] Comment on above: Performed By: #### L 100.0100 ####[facility] [address] [place], [address] MCHC (RBC) [Mass/Vol] 33.9 g/dL Normal 32-36 [facility] Comment on above: Performed By: #### L 100.0100 ####[facility] [address] [place], [address] MCV (RBC) [Entitic vol] 106.4 fL High 80-[address] [facility] Comment on above: Performed By: #### L 100.0100 ####[facility] [address] [place], [address] Monocytes/100 WBC (Bld) 11.6 % High 0-[address] [facility] Comment on above: Performed By: #### L 100.0100 ####[facility] [address] [place], [address] Neutrophils/100 WBC (Bld) 65.3 % Normal 47-70 [facility] Comment on above: Performed By: #### L 100.0100 ####[facility] [address] [place], [address] Nucleated RBC (Bld) [#/Vol] 0 10*3/uL Normal 0-5 [facility] Comment on above: Performed By: #### L 100.0100 ####[facility] [address] [place], [address] Platelet mean volume (Bld) [Entitic vol] 11.8 fL Normal 6.2-12.0 [facility] Comment on above: Performed By: #### L 100.0100 ####[facility] [address] [place], [address] Platelets (Bld) [#/Vol] 124 10*3/uL Low 150-450 [facility] Comment on above: Performed By: #### L 100.0100 ####[facility] [address] [place], [address] RBC (Bld) [#/Vol] 2.80 10*6/uL Low 4.6-6.2 [facility] Comment on above: Performed By: #### L 100.0100 ####[facility] [address] [place], [address] RDW SD 63.9 fl High 35.1-43.9 [facility] Comment on above: Performed By: #### L 100.0100 ####[facility] [address] [place], [address] WBC (Bld) [#/Vol] 4.8 10*3/uL Normal 4.4-11.0 [facility] Comment on above: Performed By: #### L 100.0100 ####[facility] [address] [place], [address] Absolute Neut Normal 2.0-7.7 [facility] Comment on above: Result Comment: nigel ballard, spoke with ayden Performed By: #### L 100.0100, L500.4050, L501.2450, L503.6005 ####[facility] [address] [place], [address] HCT Normal 40-54 [facility] Comment on above: Result Comment: clot nellie, spoke with ayden Performed By: #### L 100.0100, L500.4050, L501.2450, L503.6005 ####[facility] [address] [place], [address] HGB Normal 13.0-16.5 [facility] Comment on above: Result Comment: clot nellie, spoke with ayden Performed By: #### L 100.0100, L500.4050, L501.2450, L503.6005 ####[facility] [address] [place], [address] MCH Normal 27.0-32.0 [facility] Comment on above: Result Comment: clot nellie, spoke with ayden Performed By: #### L 100.0100, L500.4050, L501.2450, L503.6005 ####[facility] [address] [place], [address] MCHC Normal 32-36 [facility] Comment on above: Result Comment: clot nellie, spoke with ayden Performed By: #### L 100.0100, L500.4050, L501.2450, L503.6005 ####[facility] [address] [place], [address] MCV Normal 80-94 [facility] Comment on above: Result Comment: clot nellie, spoke with ayden Performed By: #### L 100.0100, L500.4050, L501.2450, L503.6005 ####[facility] [address] [place], [address] NEUT% Normal 47-70 [facility] Comment on above: Result Comment: clot nellie, spoke with ayden Performed By: #### L 100.0100, L500.4050, L501.2450, L503.6005 ####[facility] [address] [place], [address] PLT Normal 150-450 [facility] Comment on above: Result Comment: nigel ballard, spoke with ayden Performed By: #### L 100.0100, L500.4050, L501.2450, L503.6005 ####[facility] [address] [place], [address] RBC Normal 4.6-6.2 [facility] Comment on above: Result Comment: clot nellie, spoke with ayden Performed By: #### L 100.0100, L500.4050, L501.2450, L503.6005 ####[facility] [address] [place], [address] RDW CV Normal 11.6-14.6 [facility] Comment on above: Result Comment: clot nellie, spoke with ayden Performed By: #### L 100.0100, L500.4050, L501.2450, L503.6005 ####[facility] [address] [place], [address] RDW SD Normal 35.1-43.9 [facility] Comment on above: Result Comment: clot nellie, spoke with ayden Performed By: #### L 100.0100, L500.4050, L501.2450, L503.6005 ####[facility] [address] [place], [address] WBC Normal 4.4-11.0 [facility] Comment on above: Result Comment: clot nellie, spoke with ayden Performed By: #### L 100.0100, L500.4050, L501.2450, L503.6005 ####[facility] [address] [place], [address] CO2 (BldV) [Moles/Vol]Ordere d By: Rolan Romero on 06-25-2024 CO2 [Moles/Vol] 30 mmol/L 23-33 [facility] Carbon dioxide, total [Moles /volume] in Central venous bloodOrdered By: Rolan Romero on 06-25-2024 CO2 [Moles/Vol] 24.2 mmol/L 21.0-32.0 [facility] Chloride assayOrdered By: Tray Romero on 06-25-2024 Chloride [Moles/Vol] 95 mmol/L Low 98-108 [facility] Clostridium difficile detect ion by polymerase chain reactionOrdered By: Conrado Fraser on 06-25-2024 C. difficile DNA GENEVA+probe Ql (Unsp spec) [facility] Comprehensive Metabolic Prof ilon 06-25-2024 Albumin [Mass/Vol] 2.5 g/dL Low 3.4-4.8 [facility] Comment on above: Order Comment: REDRA W. PREVIOUS SPECIMEN REJECTED DUE TOHEMOLYSIS. 06/25/241755 Jamari Aguayo. Performed By: #### L 500.4050, L501.2450 ####[facility] [address] [place], [address] Albumin/Globulin [Mass ratio] 1.0 {ratio} Normal 0.9-2.4 [facility] Comment on above: Order Comment: REDRA W. PREVIOUS SPECIMEN REJECTED DUE TOHEMOLYSIS. 06/25/241755 Jamari Aguayo. Performed By: #### L 500.4050, L501.2450 ####[facility] [address] [place], [address] ALK PHOS 125 U/L Normal 40-129 [facility] Comment on above: Order Comment: REDRA W. PREVIOUS SPECIMEN REJECTED DUE TOHEMOLYSIS. 06/25/241755 Jamari Aguayo. Performed By: #### L 500.4050, L501.2450 ####[facility] [address] [place], [address] ALT [Catalytic activity/Vol] 32 U/L Normal <=46 [facility] Comment on above: Order Comment: REDRA W. PREVIOUS SPECIMEN REJECTED DUE TOHEMOLYSIS. 06/25/241755 Jamari Aguayo. Performed By: #### L 500.4050, L501.2450 ####[facility] [address] [place], [address] AST [Catalytic activity/Vol] 62 U/L High <=37 [facility] Comment on above: Order Comment: REDRA W. PREVIOUS SPECIMEN REJECTED DUE TOHEMOLYSIS. 06/25/241755 Jamari Aguayo. Performed By: #### L 500.4050, L501.2450 ####[facility] [address] [place], [address] Bilirubin [Mass/Vol] 0.46 mg/dL Normal 0.00-1.30 [facility] Comment on above: Order Comment: REDRA W. PREVIOUS SPECIMEN REJECTED DUE TOHEMOLYSIS. 06/25/241755 Jamari Aguayo. Performed By: #### L 500.4050, L501.2450 ####[facility] [address] [place], [address] BUN/CRE 6.5 RATIO Low 10-20 [facility] Comment on above: Order Comment: REDRA W. PREVIOUS SPECIMEN REJECTED DUE TOHEMOLYSIS. 06/25/241755 Jamari Aguayo. Performed By: #### L 500.4050, L501.2450 ####[facility] [address] [place], [address] Calcium [Mass/Vol] 7.7 mg/dL Normal 7.6-11.0 [facility] Comment on above: Order Comment: REDRA W. PREVIOUS SPECIMEN REJECTED DUE TOHEMOLYSIS. 06/25/241755 Jamari Aguayo. Performed By: #### L 500.4050, L501.2450 ####[facility] [address] [place], [address] Chloride [Moles/Vol] 95 mmol/L Low 98-108 [facility] Comment on above: Order Comment: REDRA W. PREVIOUS SPECIMEN REJECTED DUE TOHEMOLYSIS. 06/25/241755 Jamari Aguayo. Performed By: #### L 500.4050, L501.2450 ####[facility] [address] [place], [address] CO2 [Moles/Vol] 24.2 mmol/L Normal 21.0-32.0 [facility] Comment on above: Order Comment: REDRA W. PREVIOUS SPECIMEN REJECTED DUE TOHEMOLYSIS. 06/25/241755 Jamari Aguayo. Performed By: #### L 500.4050, L501.2450 ####[facility] [address] [place], [address] Creatinine [Mass/Vol] 1.27 mg/dL High 0.70-1.20 [facility] Comment on above: Order Comment: REDRA W. PREVIOUS SPECIMEN REJECTED DUE TOHEMOLYSIS. 06/25/241755 Jamari Aguayo. Performed By: #### L 500.4050, L501.2450 ####[facility] [address] [place], [address] ECRCL 65.06 ml/min Normal 50-250 [facility] Comment on above: Order Comment: REDRA W. PREVIOUS SPECIMEN REJECTED DUE TOHEMOLYSIS. 06/25/241755 Jamari Aguayo. Performed By: #### L 500.4050, L501.2450 ####[facility] [address] [place], [address] GAP 16 High 5-15 [facility] Comment on above: Order Comment: REDRA W. PREVIOUS SPECIMEN REJECTED DUE TOHEMOLYSIS. 06/25/241755 Jamari Aguayo. Performed By: #### L 500.4050, L501.2450 ####[facility] [address] [place], [address] GFR/1.73 sq M.predicted among non-blacks MDRD (S/P/Bld) [Vol rate/Area] 64 mL/min/{1.73_m2} Normal >60 [facility] Comment on above: Order Comment: REDRA W. PREVIOUS SPECIMEN REJECTED DUE TOHEMOLYSIS. 06/25/241755 Jamari Callahan Olivier. Result Comment: mL/m in/1.73m2 CKD-EPI Creatinine Equation (2020) Performed By: #### L 500.4050, L501.2450 ####[facility] [address] [place], [address] Globulin (S) [Mass/Vol] 2.5 g/dL Normal 2.2-4.[address] [facility] Comment on above: Order Comment: REDRA W. PREVIOUS SPECIMEN REJECTED DUE TOHEMOLYSIS. 06/25/241755 Jamari Callahan Olivier. Performed By: #### L 500.4050, L501.2450 ####[facility] [address] [place], [address] Glucose [Mass/Vol] 398 mg/dL High 70-99 [facility] Comment on above: Order Comment: REDRA W. PREVIOUS SPECIMEN REJECTED DUE TOHEMOLYSIS. 06/25/241755 Jamari Callahan Olivier. Performed By: #### L 500.4050, L501.2450 ####[facility] [address] [place], [address] Potassium [Moles/Vol] 2.2 mmol/L Invalid Interpretation Code 3.3-5.1 [facility] Comment on above: Order Comment: REDRA W. PREVIOUS SPECIMEN REJECTED DUE TOHEMOLYSIS. 06/25/241755 Jamari Callahan Olivier. Result Comment: Crit ical Result(s) Called at: 06/25/2024-18:50 by: Khushi to Ann-Marie Mondragon.??Results read back by same. Performed By: #### L 500.4050, L501.2450 ####[facility] [address] [place], [address] Sodium [Moles/Vol] 136 mmol/L Normal 133-145 [facility] Comment on above: Order Comment: REDRA W. PREVIOUS SPECIMEN REJECTED DUE TOHEMOLYSIS. 06/25/241755 Jamari Aguayo. Performed By: #### L 500.4050, L501.2450 ####[facility] [address] [place], [address] T PROT 5.0 g/dL Low 5.9-8.4 [facility] Comment on above: Order Comment: REDRA W. PREVIOUS SPECIMEN REJECTED DUE TOHEMOLYSIS. 06/25/241755 Jamari Aguayo. Performed By: #### L 500.4050, L501.2450 ####[facility] [address] [place], [address] Urea nitrogen [Mass/Vol] 8 mg/dL Normal 4-19 [facility] Comment on above: Order Comment: REDRA W. PREVIOUS SPECIMEN REJECTED DUE TOHEMOLYSIS. 06/25/241755 Jamari Aguayo. Performed By: #### L 500.4050, L501.2450 ####[facility] [address] [place], [address] ALB Normal 3.4-4.8 [facility] Comment on above: Result Comment: This specimen has been REJECTED due to Laboratory criteria:Hemolyzed.KIM (ED) has been notified of need of recollection.06/25/241754 Jamari Callahan White Performed By: #### L 100.0100, L500.4050, L501.2450, L503.6005 ####[facility] [address] [place], [address] ALK PHOS Normal 40-129 [facility] Comment on above: Result Comment: This specimen has been REJECTED due to Laboratory criteria:Hemolyzed.KIM (ED) has been notified of need of recollection.06/25/241754 Jamari Callahan White Performed By: #### L 100.0100, L500.4050, L501.2450, L503.6005 ####[facility] [address] [place], [address] ALT Normal <=46 [facility] Comment on above: Result Comment: This specimen has been REJECTED due to Laboratory criteria:Hemolyzed.KIM (ED) has been notified of need of recollection.06/25/241754 Jamari L White Performed By: #### L 100.0100, L500.4050, L501.2450, L503.6005 ####[facility] [address] [place], [address] AST Normal <=37 [facility] Comment on above: Result Comment: This specimen has been REJECTED due to Laboratory criteria:Hemolyzed.KIM (ED) has been notified of need of recollection.06/25/241754 Jamari L White Performed By: #### L 100.0100, L500.4050, L501.2450, L503.6005 ####[facility] [address] [place], [address] BUN Normal 4-19 [facility] Comment on above: Result Comment: This specimen has been REJECTED due to Laboratory criteria:Hemolyzed.KIM (ED) has been notified of need of recollection.06/25/241754 Jamari L White Performed By: #### L 100.0100, L500.4050, L501.2450, L503.6005 ####[facility] [address] [place], [address] BUN/CRE Normal 10-20 [facility] Comment on above: Result Comment: This specimen has been REJECTED due to Laboratory criteria:Hemolyzed.KIM (ED) has been notified of need of recollection.06/25/241754 Jamari L White Performed By: #### L 100.0100, L500.4050, L501.2450, L503.6005 ####[facility] [address] [place], [address] Calcium Normal 7.6-11.0 [facility] Comment on above: Result Comment: This specimen has been REJECTED due to Laboratory criteria:Hemolyzed.PAIGEILIE (ED) has been notified of need of recollection.06/25/241754 Jamari Callahan White Performed By: #### L 100.0100, L500.4050, L501.2450, L503.6005 ####[facility] [address] [place], [address] CL Normal 98-108 [facility] Comment on above: Result Comment: This specimen has been REJECTED due to Laboratory criteria:Hemolyzed.LORILIE (ED) has been notified of need of recollection.06/25/241754 Jamari Callahan White Performed By: #### L 100.0100, L500.4050, L501.2450, L503.6005 ####[facility] [address] [place], [address] CO2 Normal 21.0-32.0 [facility] Comment on above: Result Comment: This specimen has been REJECTED due to Laboratory criteria:Hemolyzed.PAIGEILIE (ED) has been notified of need of recollection.06/25/241754 Jamari Callahan White Performed By: #### L 100.0100, L500.4050, L501.2450, L503.6005 ####[facility] [address] [place], [address] CREAT,SERUM Normal 0.70-1.20 [facility] Comment on above: Result Comment: This specimen has been REJECTED due to Laboratory criteria:Hemolyzed.LORILIE (ED) has been notified of need of recollection.06/25/241754 Jamari Callahan White Performed By: #### L 100.0100, L500.4050, L501.2450, L503.6005 ####[facility] [address] [place], [address] eGFR Normal >60 [facility] Comment on above: Result Comment: This specimen has been REJECTED due to Laboratory criteria:Hemolyzed.KIM (ED) has been notified of need of recollection.06/25/241754 Jamari L White Performed By: #### L 100.0100, L500.4050, L501.2450, L503.6005 ####[facility] [address] [place], [address] GAP Normal 5-15 [facility] Comment on above: Result Comment: This specimen has been REJECTED due to Laboratory criteria:Hemolyzed.KIM (ED) has been notified of need of recollection.06/25/241754 Jamari L White Performed By: #### L 100.0100, L500.4050, L501.2450, L503.6005 ####[facility] [address] [place], [address] GLU Normal 70-99 [facility] Comment on above: Result Comment: This specimen has been REJECTED due to Laboratory criteria:Hemolyzed.KIM (ED) has been notified of need of recollection.06/25/241754 Jamari L White Performed By: #### L 100.0100, L500.4050, L501.2450, L503.6005 ####[facility] [address] [place], [address] Potassium Normal 3.3-5.1 [facility] Comment on above: Result Comment: This specimen has been REJECTED due to Laboratory criteria:Hemolyzed.KIM (ED) has been notified of need of recollection.06/25/241754 Jamari L White Performed By: #### L 100.0100, L500.4050, L501.2450, L503.6005 ####[facility] [address] [place], [address] T BILI Normal 0.00-1.30 [facility] Comment on above: Result Comment: This specimen has been REJECTED due to Laboratory criteria:Hemolyzed.KIM (ED) has been notified of need of recollection.06/25/241754 Jamari Callahan White Performed By: #### L 100.0100, L500.4050, L501.2450, L503.6005 ####[facility] [address] [place], [address] T PROT Normal 5.9-8.4 [facility] Comment on above: Result Comment: This specimen has been REJECTED due to Laboratory criteria:Hemolyzed.KIM (ED) has been notified of need of recollection.06/25/241754 Jamari Callahan White Performed By: #### L 100.0100, L500.4050, L501.2450, L503.6005 ####[facility] [address] [place], [address] Comprehensive Metabolic Profil Normal 133-145 [facility] Comment on above: Result Comment: This specimen has been REJECTED due to Laboratory criteria:Hemolyzed.KIM (ED) has been notified of need of recollection.06/25/241754 Jamari L White Performed By: #### L 100.0100, L500.4050, L501.2450, L503.6005 ####[facility] [address] [place], [address] Emergency Department Summary on 06-25-2024 Emergency Department Summary Normal [facility] Eosinophil percentageOrdered By: Rolan Romero on 06-25-2024 Eosinophils/100 WBC (Bld) 0.2 % 0-5 [facility] Erythrocyte distribution wid th ratioOrdered By: Rolan Romero on 06-25-2024 Erythrocyte distribution width (RBC) [Ratio] 16.2 % High 11.6-14.6 [facility] Erythrocyte distribution wid th standard deviationOrdered By: Rolan Quinn on 06-25-2024 Erythrocyte distribution width (RBC) [Ratio] 63.9 fl High 35.1-43.9 [facility] Glomerular filtration rate ( GFR) estimation/1.73 sq m using serum, plasma, or whole bOrdered By: Rolan Romero on 06-25-2024 GFR/1.73 sq M.predicted among non-blacks MDRD (S/P/Bld) [Vol rate/Area] 64 mL/min/{1.73_m2} >60 [facility] Comment on above: mL/min/1.73m2 CKD-EP I Creatinine Equation (2020) [facility] deOrdered By: Rolan Romero on 06-25-2024 Glucose [Mass/Vol] 277 mg/dL High 74-106 [facility] Comment on above: MANAGEMENT OF PATIEN T CARE PER NURSING PROTOCOL H AND P Exam - Hospital[place] 06-25-2024 H&P Exam - Hospitalist Normal [facility] Hematocrit Auto (Bld) [Volum e fraction]Ordered By: Rolan Romero on 06-25-2024 Hematocrit (Bld) [Volume fraction] 29.8 % Low 40-54 [facility] Hemoglobin A1c percentageOrd ered By: Conrado Fraser on 06-25-2024 HbA1c (Bld) [Mass fraction] 6.6 % High <5.7 [facility] Comment on above: Normal < 5.7 % Predi abetic 5.7 - 6.4 % Diabetic >or= 6.5 % Please note range changes. Hemoglobin measurementOrdere d By: Rolan Romero on 06-25-2024 Hemoglobin (Bld) [Mass/Vol] 10.1 g/dL Low 13.0-16.5 [facility] Immature granulocytes/100 WB C Auto (Bld)Ordered By: Rolan Romero on 06-25-2024 Immature granulocytes/100 WBC (Bld) 0.200 % 0.0-0.9 [facility] Comment on above: IG% - Immature Granu locytes (promyelocytes, myelocytes and metamyelocytes) > 1% indicates that a LEFT SHIFT is Present. Ketones Test strip Ql (U)Ord ered By: Rolan Romero on 06-25-2024 Ketones Ql (U) Negative Negative [facility] Laboratory - Chemistry and C hemistry - challengeOrdered By: Rolan Romero on 06-25-2024 AST [Catalytic activity/Vol] 62 U/L High <38 [facility] Lactic Acidon 06-25-2024 Lactate [Moles/Vol] 4.8 mmol/L Invalid Interpretation Code 0.0-2.0 [facility] Comment on above: Result Comment: Crit ical Result(s) Called at: 2317by: MATTHEW HUBER TO ELIS VALENCIA.??Results read back bysame. Performed By: #### L 503.6005 ####[facility] [address] [place], [address] Lactate [Moles/Vol] 6.6 mmol/L Invalid Interpretation Code 0.0-2.0 [facility] Comment on above: Order Comment: Y Result Comment: Crit ical Result(s) Called at: 06/25/2024-18:50 by: Khushi to Ann-Marie Mondragon.??Results read back by same. Performed By: #### L 100.0100, L500.4050, L501.2450, L503.6005 ####[facility] [address] [place], [address] Lactic acid measurementOrder ed By: Rolan Romero on 06-25-2024 Lactate [Moles/Vol] 4.8 mmol/L High 0.0-2.0 [facility] Comment on above: Critical Result(s) C alled at: 2317by: MATTHEW HUBER TO ELIS VALENCIA. Results read back by same. Lipaseon 06-25-2024 Lipase [Catalytic activity/Vol] 6 U/L Low 13-75 [facility] Comment on above: Order Comment: OLIVIA Dobbs PREVIOUS SPECIMEN REJECTED DUE TOHEMOLYSIS. 06/25/241755 Jamari Aguayo. Result Comment: Mary Anne zamorano note:LIPASE revised reference range effective 22.New Lipase methodology. Expected to produce lower valuesthan the previous assay method.NEW Reference Range: 13 - 75 U/L Performed By: #### L 500.4050, L501.2450 ####[facility] [address] [place], [place], [address] Lipase [Catalytic activity/Vol] 11 U/L Low 13-75 [facility] Comment on above: Order Comment: This specimen has been REJECTED due to Laboratory criteria:Hemolyzed.KIM (ED) has been notified of need of recollection.06/25/24 175 Jamari Callahan White Result Comment: This specimen has been REJECTED due to Laboratory criteria:Hemolyzed.KIM (ED) has been notified of need of recollection.06/25/24 175 Jamari L WhitePlease note:LIPASE revised reference range effective 22.New Lipase methodology. Expected to produce lower valuesthan the previous assay method.NEW Reference Range: 13 - 75 U/L Performed By: #### L 100.0100, L500.4050, L501.2450, L503.6005 ####[facility] [address] [place], [place], [id number] Lipase measurementOrdered By : Rolan Romero on 06-25-2024 Lipase [Catalytic activity/Vol] 6 U/L Low 13-75 [facility] Comment on above: Please note:LIPASE r evised reference range effective 22. New Lipase methodology. Expected to produce lower values than the previous assay method. NEW Reference Range: 13 - 75 U/L MCV (mean corpuscular volume ) determinationOrdered By: Rolan Romero on 06-25-2024 MCV (RBC) [Entitic vol] 106.4 fL High 80-[address] [facility] Magnesiumon 06-25-2024 Magnesium [Mass/Vol] 1.8 mg/dL Normal 1.5-2.2 [facility] Comment on above: Performed By: #### L 501.5600, L501.6901, L501.5200 ####[facility] [address] [place], [place], [id number] Magnesium measurement (mass/ volume)Ordered By: Rolan Romero on 06-25-2024 Magnesium (Unsp spec) [Mass/Vol] 1.8 mg/dL 1.5-2.2 [facility] Mean corpuscular hemoglobin (MCH) determinationOrdered By: Rolan Romero on 06-25-2024 MCH (RBC) [Entitic mass] 36.1 pg High 27.0-32.0 [facility] Mean corpuscular hemoglobin concentration (MCHC) determinationOrdered By: Rolan Romero on 06-25-2024 MCHC (RBC) [Mass/Vol] 33.9 g/dL 32-36 [facility] Mean platelet volume determi nationOrdered By: Rolan Romero on 06-25-2024 Platelet mean volume (Bld) [Entitic vol] 11.8 fL 6.2-12.0 [facility] Microscopic analysis of urin e for red blood cells (RBC)Ordered By: Rolan Romero on 06-25-2024 Microscopic analysis of urine for red blood cells (RBC) 0 SEEN /hpf 0-5 [facility] Monocyte percentageOrdered B y: Rolan Romero on 06-25-2024 Monocytes/100 WBC (Bld) 11.6 % High 0-10 [facility] Mucus LM Ql (Urine sed)Order ed By: Rolan Romero on 06-25-2024 Mucus Ql (Urine sed) 0 SEEN /hpf [facility] Neutrophil percentageOrdered By: Rolan Romero on 06-25-2024 Neutrophils/100 WBC (Bld) 65.3 % 47-70 [facility] Nitrite Test strip Ql (U)Ord ered By: Rolan Romero on 06-25-2024 Nitrite Ql (U) Negative Negative [facility] No Panel InformationOrdered By: Rolan Romero on 06-25-2024 Blood Gas Sample Site Not entered [facility] Blood Gas Specimen Type ROSA [facility] Oxygen Delivery Device Room Air [facility] ROSA [facility] Not entered [facility] Room Air [facility] No Panel InformationOrdered By: Conrado Fraser on 06-25-2024 Urine Buprenorphine Qualitative Negative < 200 ng/mL [facility] Urine Oxycodone Screen Negative < 100 ng/mL [facility] Negative < 200 ng/mL [facility] Nucleated red blood cell per centageOrdered By: Rolan Romero on 06-25-2024 Nucleated RBC/100 WBC (Bld) [Ratio] 0 % 0-5 [facility] Platelet countOrdered By: Tray Romero on 06-25-2024 Platelets (Bld) [#/Vol] 124 10*3/uL Low 150-450 [facility] Potassiumon 06-25-2024 Potassium [Moles/Vol] 2.1 mmol/L Invalid Interpretation Code 3.3-5.1 [facility] Comment on above: Result Comment: Crit ical Result(s) Called at: 06/25/2024-21:41 by: Khushi VASQUEZ.??Results read back by same. Performed By: #### L 501.5600, L501.6901, L501.5200 ####[facility] [address] [place], [address] Potassium measurement (mass/ volume)Ordered By: Rolan Romero on 06-25-2024 Potassium (Unsp spec) [Mass/Vol] 2.1 mmol/L Low 3.3-5.1 [facility] Comment on above: Critical Result(s) C alled at: 06/25/2024-21:41 by: Jamari Aguayo to WILFREDO VASQUEZ. Results read back by same. Protein Test strip Ql (U)Ord ered By: Rolan Romero on 06-25-2024 Protein Ql (U) 15 mg/dl High Negative [facility] Quantitative urine opiates m easurementOrdered By: Conrado Fraser on 06-25-2024 Opiates Ql (U) Negative < 300 ng/mL [facility] RBC Auto (Bld) [#/Vol]Ordere d By: Rolan Romero on 06-25-2024 RBC (Bld) [#/Vol] 2.80 10*6/uL Low 4.6-6.2 [facility] Screening urine fentanyl mine surementOrdered By: Conrado Fraser on 06-25-2024 fentaNYL Screen Ql (U) Negative [facility] Serum creatinine measurement (mass/volume)Ordered By: Rolan Romero on 06-25-2024 Creatinine [Mass/Vol] 1.27 mg/dL High 0.70-1.20 [facility] Serum globulin measurementOr dered By: Rolan Romero on 06-25-2024 Globulin (S) [Mass/Vol] 2.5 g/dL 2.2-4.[address] [facility] Serum glucose measurement (m ass/volume)Ordered By: Rolan Romero on 06-25-2024 Glucose [Mass/Vol] 398 mg/dL High 70-99 [facility] Serum or plasma alanine padilla otransferase (ALT) measurementOrdered By: Rolan Romero on 06-25-2024 ALT [Catalytic activity/Vol] 32 U/L <47 [facility] Serum or plasma albumin luciana urement (mass/volume)Ordered By: Rolan Quinn on 06-25-2024 Albumin [Mass/Vol] 2.5 g/dL Low 3.4-4.8 [facility] Serum or plasma albumin/glob ulin mass ratioOrdered By: Rolan Romero on 06-25-2024 Albumin/Globulin [Mass ratio] 1.0 {ratio} 0.9-2.4 [facility] Serum or plasma alkaline nolan sphatase measurementOrdered By: Rolan Romero on 06-25-2024 ALP [Catalytic activity/Vol] 125 U/L 40-129 [facility] Serum or plasma calcium luciana urement (mass/volume)Ordered By: Rolan Quinn on 06-25-2024 Calcium [Mass/Vol] 7.7 mg/dL 7.6-11.0 [facility] Serum or plasma ethanol luciana urement (mass/volume)Ordered By: Rolan Quinn on 06-25-2024 Ethanol [Mass/Vol] mg/dL <10.1 [facility] Comment on above: This test is for med ical purposes only. The legal definition of intoxication varies according to local law. Serum or plasma urea nitroge n measurement (mass/volume)Ordered By: Rolan Romero on 06-25-2024 Urea nitrogen [Mass/Vol] 8 mg/dL 4-19 [facility] Sodium levelOrdered By: Praneeth Romero on 06-25-2024 Sodium [Moles/Vol] 136 mmol/L 133-145 [facility] Squamous epithelial cells de tection in urine sediment by light microscopyOrdered By: Rolan Romero on 06-25-2024 Epithelial cells.squamous LM Ql (Urine sed) 0 SEEN /hpf 0-5 [facility] Stool lactoferrin detection by immunoassayOrdered By: Conrado Fraser on 06-25-2024 Lactoferrin IA Ql (Stl) [facility] Total proteinOrdered By: Dom Romero on 06-25-2024 Protein [Mass/Vol] 5.0 g/dL Low 5.9-8.4 [facility] Urinalysis, Completeon 06-25 BACTERIA 0 SEEN Normal None Seen [facility] Comment on above: Order Comment: CLEAN CATCH Performed By: #### L 400.0001 ####[facility] [address] [place], [address] EPI,SQUAMOUS 0 SEEN Normal 0-5 [facility] Comment on above: Order Comment: CLEAN CATCH Performed By: #### L 400.0001 ####[facility] [address] [place], [address] Mucus Ql (Urine sed) 0 SEEN Normal [facility] Comment on above: Order Comment: CLEAN CATCH Performed By: #### L 400.0001 ####[facility] [address] [place], [address] RBC 0 SEEN Normal 0-5 [facility] Comment on above: Order Comment: CLEAN CATCH Performed By: #### L 400.0001 ####[facility] [address] [place], [place], [id number] WBC 0 SEEN Normal 0-5 [facility] Comment on above: Order Comment: CLEAN CATCH Performed By: #### L 400.0001 ####[facility] [address] [place], [place], [id number] Urine benzodiazepine levelOr dered By: Conrado Fraser on 06-25-2024 Benzodiazepines Ql (U) Negative < 200 ng/mL [facility] Urine clarityOrdered By: Dom Romero on 06-25-2024 Clarity (U) Clear Clear [facility] Urine cocaine levelOrdered B y: Conrado Fraser on 06-25-2024 Cocaine Ql (U) Negative < 300 ng/mL [facility] Urine color determinationOrd ered By: Rolan Romero on 06-25-2024 Color (U) Yellow Yellow [facility] Urine zbejd-4-zlqfinvetzdisy abinol (THC) measurementOrdered By: Conrado Fraser on 06-25-2024 Cannabinoids Screen Ql (U) Negative < 50 ng/mL [facility] Urine glucose detectionOrder ed By: Rolan Romero on 06-25-2024 Glucose Ql (U) 1000 mg/dl High Normal [facility] Urine leukocyte esterase det ection by dipstickOrdered By: Rolan Romero on 06-25-2024 Leukocyte esterase Test strip Ql (U) Negative Negative [facility] Urine pHOrdered By: Rolan Saul on 06-25-2024 pH (U) 7.0 [pH] 5.0 - 8.0 [facility] Urine phencyclidine (PCP) de tectionOrdered By: Conrado Fraser on 06-25-2024 Phencyclidine Ql (U) Negative < 25 ng/mL [facility] Urine sediment bacteria coun t by microscopy (number/high power field)Ordered By: Rolan Romero on 06-25-2024 Bacteria LM.HPF (Urine sed) [#/Area] 0 /[HPF] None Seen [facility] Urine specific gravity measu rementOrdered By: Rolan Romero on 06-25-2024 Specific gravity (U) [Rel density] 1.010 1.002-1.030 [facility] Urine urobilinogen measureme ntOrdered By: Rolan Romero on 06-25-2024 Urobilinogen Ql (U) Normal mg/dl Normal [facility] Venous Blood Gason 5 Blood Gas Type ROSA Normal [facility] Comment on above: Performed By: #### L 9000.0810 ####[facility] [address] [place], [address] CO2 [Moles/Vol] 30 mmol/L Normal 23-33 [facility] Comment on above: Performed By: #### L 8999.0810 ####[facility] [address] [place], [address] HCO3 (Bld) [Moles/Vol] 29 mmol/L High 22-26 [facility] Comment on above: Performed By: #### L 9000.0810 ####[facility] [address] [place], [address] O2 Delivery Dev Room Air Normal [facility] Comment on above: Performed By: #### L 9000.0810 ####[facility] [address] [place], [address] SITE Not entered Normal [facility] Comment on above: Performed By: #### L 9000.0810 ####[facility] [address] [place], [address] VBG BE 4 mmol/L High -1.0-3.5 [facility] Comment on above: Performed By: #### L 900.0810 ####[facility] [address] [place], [address] VBG pCO2 42.7 mmHg Normal 41-51 [facility] Comment on above: Performed By: #### L 9000.0810 ####[facility] [address] [place], [address] VBG pH 7.43 High 7.32-7.42 [facility] Comment on above: Performed By: #### L 9000.0810 ####[facility] [address] [place], [address] VBG PO2 29 mmHg Normal 25-40 [facility] Comment on above: Performed By: #### L 9000.0810 ####[facility] [address] [place], [address] VBG SO2 58 Normal 50-70 [facility] Comment on above: Performed By: #### L 9000.0810 ####[facility] [address] [place], [place], [phone] Venous blood base excess mine surementOrdered By: Rolan Romero on 06-25-2024 Base excess Calc (BldV) [Moles/Vol] 4 mmol/L High -1.0-3.5 [facility] Venous blood bicarbonate mine surementOrdered By: Rolan Romero on 06-25-2024 HCO3 (Bld) [Moles/Vol] 29 mmol/L High 22-26 [facility] Venous blood oxygen saturati on measurementOrdered By: Rolan Romero on 06-25-2024 Oxygen saturation in Blood 58 % 50-70 [facility] Venous blood pH measurementO rdered By: Rolan Romero on 06-25-2024 pH (BldV) 7.43 [pH] High 7.32-7.42 [facility] Venous blood partial pressur e of carbon dioxide measurementOrdered By: Rolan Romero on 06-25-2024 CO2 (BldV) [Partial pressure] 42.7 mm[Hg] 41-51 [facility] Venous blood partial pressur e of oxygen measurementOrdered By: Rolan Quinn on 06-25-2024 Oxygen (BldV) [Partial pressure] 29 mm[Hg] 25-40 [facility] White blood cell (WBC) count Ordered By: Rolan Romero on 06-25-2024 WBC (Bld) [#/Vol] 4.8 10*3/uL 4.4-11.0 [facility] White blood cell countOrdere d By: Rolan Romero on 06-25-2024 White blood cell count 0 SEEN /hpf 0-[address] [facility] CNPNon 06-21-2024 CNPN Telephone (AGFAMPLE) ANALILIA MELENDREZ ([id number]) 1960 M Date Time Provider Department 06/21/24 [...] be called in FLORENTINO Cerrato Brittny A, APRN.[facility] 06/23/2024 8:13 AM Signed His urine would need to be tested first. I placed the lab order. Marianna Wagner APRN.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 06/23/2024 8:13 AM Signed Addended by: MARIANNA [...] Fully Assessed Reason for Visit: Patient Question [2377] Primary Visit Diagnosis:UTI symptoms [R39.9] Order(s):URINALYSIS (WITH MICROSCOPIC) WITH CULTURE IF INDICATED [SQUACII] Order #: [id number] FUTURE Prescriptions as of 06/23/2024 - UNIFINE PENTIPS 31 gauge x /16 USE 3 TIMES DAILY - metoprolol tartrate, [...] fourteen (14) days to upper arm. - voyfsp-uwiyvwjh-mpzntyo (CREON 36) 36,000-114,000- 180,000 unit delayed release capsule Take 2 pills by mouth with first bite of meal and take 1 pill with snacks. Max 10 per day. - Cholecalciferol, Vitamin D3, (VITAMIN D-3) 50 mcg (2,000 unit) cap Take 1 capsule by mouth once daily. - Blood-Glucose Meter,Continuous (FREESTYLE MANGO 3 READER) [facility] Use to check blood sugar at least [...] (HCC) [I71.9] 08/09/2023 Atherosclerotic heart disease of [place] coronar*01/03/2017 Chronic pancreatitis (HCC) [K86.1] 08/09/2023 Calcium [...] attack) [ (more content not included)... 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 He denies other symptoms patient would like to know if he needs a med change FLORENTINO Cerrato Brittny A, ALTER[employer].[facility] 04/14/2024 8:19 AM Signed I would [...] fourteen (14) days to upper arm. - novfeq-mmzwewyn-krxlagn (CREON 36) 36,000-114,000- 180,000 unit delayed release capsule Take 2 pills by mouth with first bite of meal and take 1 pill with snacks. Max 10 per day. - Cholecalciferol, Vitamin D3, (VITAMIN D-3) 50 mcg (2,000 unit) cap Take 1 capsule by mouth once daily. 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 Normal [facility] CBC W Auto Differential pane l (Bld)on 04-12-2024 Basophils (Bld) [#/Vol] 0.11 10*3/uL High <0.11 [facility] Comment on above: Order Comment: Speci men Type: BLOOD SPECIMENOrdering Facility: [facility] Address: [address] [place] [address] Performed By: #### 5 7021-8 ####[facility] [id number] [place] [address] [place] Basophils/100 WBC (Bld) 2.1 % Normal C [facility] Comment on above: Order Comment: Speci men Type: BLOOD SPECIMENOrdering Facility: [facility] Address: [address] [place] [address] Performed By: #### 5 7021-8 ####[facility]ITALMARIANNAA [id number] [place] [address] [place] Differential cell count method Nom (Bld) Auto Normal [facility] Comment on above: Order Comment: Speci men Type: BLOOD SPECIMENOrdering Facility: [facility] Address: [address] [place] [address] Performed By: #### 5 7021-8 ####[facility]ITALLIA [id number] [place] [address] [place] Eosinophils (Bld) [#/Vol] 0.06 10*3/uL Normal <0.46 [facility] Comment on above: Order Comment: Speci men Type: BLOOD SPECIMENOrdering Facility: [facility] Address: [address] [place] [address] Performed By: #### 5 7021-8 ####[facility] FOSTERJevonNCROSAURA [id number] [place] [address] [place] Eosinophils/100 WBC (Bld) 1.1 % Normal [facility] Comment on above: Order Comment: Speci men Type: BLOOD SPECIMENOrdering Facility: [facility] Address: [address] [place] [address] Performed By: #### 5 7021-8 ####[facility] HOS[facility]ITALNCLI [id number] [place] [address] [place] Erythrocyte distribution width (RBC) [Ratio] 15.6 % High 11.5-15.0 [facility] Comment on above: Order Comment: Speci men Type: BLOOD SPECIMENOrdering Facility: [facility] Address: [address] [place] [address] Performed By: #### 5 7021-8 ####[facility] HOSPITALNCA [id number] [place] [address] [place] Hematocrit (Bld) [Volume fraction] 36.8 % Low 39.0-51.0 [facility] Comment on above: Order Comment: Speci men Type: BLOOD SPECIMENOrdering Facility: [facility] Address: [address] [place] [address] Performed By: #### 5 7021-8 ####[facility] HOS[facility]ITALNCLIA [id number] [place] [address] [place] Hemoglobin (Bld) [Mass/Vol] 11.9 g/dL Low 13.0-17.0 [facility] Comment on above: Order Comment: Speci men Type: BLOOD SPECIMENOrdering Facility: [facility] Address: [address] [place] [address] Performed By: #### 5 7021-8 ####[facility] MILLTOWNCLIA [id number] [place] [address] [place] Immature granulocytes (Bld) [#/Vol] 10*3/uL Normal <0.10 [facility] Comment on above: Order Comment: Speci men Type: BLOOD SPECIMENOrdering Facility: [facility] Address: [address] [place] [address] Performed By: #### 5 7021-8 ####[facility] CENTERWNCLIA [id number] [place] [address] [place] Immature granulocytes/100 WBC (Bld) 0.4 % Normal [facility] Comment on above: Order Comment: Speci men Type: BLOOD SPECIMENOrdering Facility: [facility] Address: [address] [place] [address] Performed By: #### 5 7021-8 ####[facility]ALL[facility] [id number] [place] [address] [place] Lymphocytes (Bld) [#/Vol] 1.31 10*3/uL Normal 1.00-4.00 [facility] Center Comment on above: Order Comment: Speci men Type: BLOOD SPECIMENOrdering Facility: [facility] Address: [address] [place] [address] Performed By: #### 5 7021-8 ####[facility] MILLWNCLIA [id number] [place] [address] [place] Lymphocytes/100 WBC (Bld) 24.5 % [facility] Comment on above: Order Comment: Speci men Type: BLOOD SPECIMENOrdering Facility: [facility] Address: [address] [place] [address] Performed By: #### 5 7021-8 ####[facility]ITALNCLIA [id number] [place] [id number] [place] MCH (RBC) [Entitic mass] 32.3 pg Normal 26.0-34.0 [facility] Comment on above: Order Comment: Speci men Type: BLOOD SPECIMENOrdering Facility: [facility] Address: [address] [place] [address] Performed By: #### 5 7021-8 ####[facility] HOSPITALRODO [id number] [place] [address] [place] MCHC (RBC) [Mass/Vol] 32.3 g/dL Normal 30.5-36.0 [facility] Comment on above: Order Comment: Speci men Type: BLOOD SPECIMENOrdering Facility: [facility] Address: [address] [place] [address] Performed By: #### 5 7021-8 ####[facility] HOSPITALMAGUETayla [id number] [address] [place] MCV (RBC) [Entitic vol] 100.0 fL Normal 80.0-100.0 C [facility] Comment on above: Order Comment: Speci men Type: BLOOD SPECIMENOrdering Facility: [facility] Address: [address] [place] [address] Performed By: #### 5 7021-8 ####[facility] CENTERTayla [id number] [place] [address] [place] Monocytes (Bld) [#/Vol] 0.44 10*3/uL Normal <0.87 [facility] Comment on above: Order Comment: Speci men Type: BLOOD SPECIMENOrdering Facility: [facility] Address: [address] [place] [address] Performed By: #### 5 7021-8 ####[facility] HOS[facility]ITALNCLIA [id number] [address] [place] Monocytes/100 WBC (Bld) 8.2 % Normal C [facility] Comment on above: Order Comment: Speci men Type: BLOOD SPECIMENOrdering Facility: [facility] Address: [address] [place] [address] Performed By: #### 5 7021-8 ####[facility] FOSTERBRENTWOODMAGUELIA [id number] [place] [address] [place] Neutrophils (Bld) [#/Vol] 3.41 10*3/uL Normal 1.45-7.50 [facility] Comment on above: Order Comment: Speci men Type: BLOOD SPECIMENOrdering Facility: [facility] Address: [address] [place] [address] Performed By: #### 5 7021-8 ####[facility] HOSPITALLIA [id number] [place] [address] [place] Neutrophils/100 WBC (Bld) 63.7 % Normal [facility] Comment on above: Order Comment: Speci men Type: BLOOD SPECIMENOrdering Facility: [facility] Address: [address] [place] [address] Performed By: #### 5 7021-8 ####[facility] HOSPITALLIA [id number] [place] [address] [place] Nucleated RBC (Bld) [#/Vol] 10*3/uL Normal <0.01 [facility] Comment on above: Order Comment: Speci men Type: BLOOD SPECIMENOrdering Facility: [facility] Address: [address] [place] [address] Performed By: #### 5 7021-8 ####[facility] HOSPITALLIA [id number] [place] [address] [place] Nucleated RBC/100 WBC (Bld) [Ratio] 0.0 /100 WBC Normal [facility] Comment on above: Order Comment: Speci men Type: BLOOD SPECIMENOrdering Facility: [facility] Address: [address] [place] [address] Performed By: #### 5 7021-8 ####[facility] MILLTOWNCLIA [id number] [place] [address] [place] Platelet mean volume (Bld) [Entitic vol] 11.6 fL Normal 9.0-12.7 [facility] Comment on above: Order Comment: Speci men Type: BLOOD SPECIMENOrdering Facility: [facility] Address: [address] [place], [place] [address] Performed By: #### 5 7021-8 ####[facility] HOS[facility]ITALNCLIA [id number] [place] [address] [place] Platelets (Bld) [#/Vol] 164 10*3/uL Normal 150-400 [facility] Comment on above: Order Comment: Speci men Type: BLOOD SPECIMENOrdering Facility: [facility] Address: [address] [place], [place] [address] Performed By: #### 5 7021-8 ####[facility] HOSPITALNCLIA [id number] [place] [address] [place] RBC (Bld) [#/Vol] 3.68 10*6/uL Low 4.20-6.00 [facility] Comment on above: Order Comment: Speci men Type: BLOOD SPECIMENOrdering Facility: [facility] Address: [address] [place], [place] [address] Performed By: #### 5 7021-8 ####[facility] MILLWNCLIA [id number] [place] [address] [place] WBC (Bld) [#/Vol] 5.35 10*3/uL Normal 3.70-11.00 [facility] Comment on above: Order Comment: Speci men Type: BLOOD SPECIMENOrdering Facility: [facility] Address: [address] [place], [place] [address] Performed By: #### 5 7021-8 ####[facility] HOSPITALNCLIA [id number] [place] [address] [place] CNOVSPon 04-12-2024 CNOVSP [facility] ANES POSTPROC EVALon 025 ANES POSTPROC EVAL HNO ID: [id number] Author: LUCAS SAHU MD Service: Anesthesiology Author Type: Anesthesiologist Type: Anesthesia Postprocedure Evaluation Filed: 04/05/2024 13:44 Note Text: POST ANESTHESIA EVALUATION NOTE : 1960 Procedure Summary Date: 04/05/24 Room / Location: [facility] Endoscopy Anesthesia Start: 1215 Anesthesia Stop: 1256 Procedures: COLONOSCOPY DIAGNOSTIC EGD DIAGNOSTIC Diagnosis: Anemia, unspecified type Weight loss Chronic pancreatitis, unspecified pancreatitis type (HCC) Epigastric pain (Iron deficiency anemia) (Iron deficiency anemia) Scheduled Providers: Phoebe Vazquez MD; Trenton Amaral MD; Lucas Delarosa APRN.LITHOGRAPHIC RETOUCHER APPRENTICE Responsible Provider: Román Vazquez MD Anesthesia Type: [...] April 05, 2024 TIME: 1:44 PM CSN: [id number] [facility] ANES PRE-OPon 04-05-2024 ANES PRE-OP HNO ID: [id number] Author: TRENTON AMARAL MD Service: ? Author Type: Anesthesiologist Type: Anesthesia Preprocedure Evaluation Filed: 04/05/2024 12:16 Note Text: ANESTHESIOLOGY DAY OF SURGERY NOTE : 1960 Procedure Information Date/Time: 04/05/24 1415 Scheduled providers: Phoebe Vazquez MD; Trenton Amaral MD; Lucas Delarosa APRN.LITHOGRAPHIC RETOUCHER APPRENTICE Procedures: COLONOSCOPY DIAGNOSTIC EGD DIAGNOSTIC Location: [facility] Endoscopy Estimated body mass index is 18.97 kg/m? as calculated from the following: Height as of 12/27/23: 180.3 cm (5' 11). Weight as of 12/27/23: 61.7 kg (136 lb). Most recent hematocrit and potassium results: Hematocrit 31.8 10/15/2023 Potassium 4.8 10/15/2023 Relevant Problems CARDIO (+) Acute thoracic aortic dissection (HCC) (+) Aortic aneurysm (HCC) (+) Atherosclerotic heart disease of [place] coronary artery without angina pectoris (+) Old [...] every fourteen (14) days to upper arm. lckrez-gqqxztdr-wmvotem (CREON 36) 36,000-114,000- 180,000 unit delayed release capsule Take 2 pills by mouth with first bite of meal and take 1 pill with snacks. Max 10 per day. Cholecalciferol, Vitamin D3, (VITAMIN D-3) 50 mcg (2,000 unit) cap Take 1 capsule by mouth once daily. Blood-Glucose Meter,Continuous (FREESTYLE MANGO 3 READER) [facility] Use to check blood sugar at least [...] April 05, 2024 TIME: 11:39 AM CSN: [id number] Normal [facility] Colonoscopyon 04-05-2024 Colonoscopy [facility] Gastrointestinal Endoscopy Patient Name: Analilia Melendrez Procedure Date: 04/05/2024 12:31 PM Date of : 1960 Admit Type: Outpatient Age: 63 Room: [facility] Gender: Male Note Status: Finalized Attending MD: Phoebe Vazquez MD, [id number] Procedure: Colonoscopy Indications: Iron deficiency anemia Providers: [...] anesthesia care under the supervision of a LITHOGRAPHIC RETOUCHER APPRENTICE was determined to be medically necessary for [...] was poor. Procedure Code(s): --- Professional --- 99060, Colonoscopy, flexible; diagnostic, including collection of specimen(s) by brushing or washing, when performed (separate procedure) Diagnosis Code(s): --- Professional --- D50.9, Iron deficiency anemia, unspecified K64.8, Other hemorrhoids CPT copyright 2020 [employer]. All rights reserved. The codes documented in this report are preliminary and upon social worker delinquency prevention review may be revised to meet current compliance requirements. Attending Participation: I personally performed the entire procedure. Scope In: 12:34:29 PM Scope Out: 12:51:09 PM MD Phoebe Fuchs MD 04/05/2024 12:56:42 PM This report has been signed electronically by Phoebe Vazquez MD Number of Addenda: 0 Note Initiated On: 04/05/2024 12:31 PM Estimated Blood Loss: Estimated blood loss was minimal. Normal [facility] EGD Study observation Meera petty 04-05-2024 [facility] Gastrointestinal Endoscopy Patient Name: Analilia Melendrez Procedure Date: 04/05/2024 12:04 PM Date of : 1960 Admit Type: Outpatient Age: 63 Room: [facility] Gender: Male Note Status: Finalized Attending MD: Phoebe Vazquez MD, [id number] Procedure: Upper GI endoscopy Indications: Iron deficiency anemia Providers: Phoebe Vazquez MD Patient Profile: Refer to note in patient chart for documentation of history and physical. Referring Physician: Susana Ramirez (Referring MD) Medicines: See the Anesthesia note for documentation of the administered medications Complications: No immediate complications. Requesting Provider: Procedure: Pre-Anesthesia Assessment: - Monitored anesthesia care under the supervision of a LITHOGRAPHIC RETOUCHER APPRENTICE was determined to be medically necessary for [...] pathology results Procedure Code(s): --- Professional --- 23365, Esophagogastroduodenosc opy, flexible, transoral; with biopsy, single or multiple Diagnosis Code(s): --- Professional --- D50.9, Iron deficiency anemia, unspecified K22.89, Other specified disease of esophagus K31.89, Other diseases of stomach and duodenum CPT copyright 2020 [employer]. All rights reserved. The codes documented in this report are preliminary and upon social worker delinquency prevention review may be revised to meet current compliance requirements. Attending Participation: I personally performed the entire procedure. Scope In: 12:23:40 PM Scope Out: 12:29:35 PM MD Phoebe Fuchs MD 04/05/2024 12:33:21 PM This report has been signed electronically by Phoebe Vazquez MD Number of Addenda: 0 Note Initiated On: 04/05/2024 12:04 PM Estimated Blood Loss: Estimated blood loss was minimal. PROVATION [facility] Radiology Study observation (narrative) [facility] Flexible sigmoidoscopy study on 04-05-2024 [facility] Gastrointestinal Endoscopy Patient Name: Analilia Melendrez Procedure Date: 04/05/2024 12:31 PM Date of : 1960 Admit Type: Outpatient Age: 63 Room: [facility] Gender: Male Note Status: Finalized Attending MD: Phoebe Vazquez MD, [id number] Procedure: Colonoscopy Indications: Iron deficiency anemia Providers: [...] anesthesia care under the supervision of a LITHOGRAPHIC RETOUCHER APPRENTICE was determined to be medically necessary for [...] was poor. Procedure Code(s): --- Professional --- 49284, Colonoscopy, flexible; diagnostic, including collection of specimen(s) by brushing or washing, when performed (separate procedure) Diagnosis Code(s): --- Professional --- D50.9, Iron deficiency anemia, unspecified K64.8, Other hemorrhoids CPT copyright 2020 [employer]. All rights reserved. The codes documented in this report are preliminary and upon social worker delinquency prevention review may be revised to meet current compliance requirements. Attending Participation: I personally performed the entire procedure. Scope In: 12:34:29 PM Scope Out: 12:51:09 PM MD Phoebe Fuchs MD 04/05/2024 12:56:42 PM This report has been signed electronically by Phoebe Vazquez MD Number of Addenda: 0 Note Initiated On: 04/05/2024 12:31 PM Estimated Blood Loss: Estimated blood loss was minimal. [facility] Radiology Study observation (narrative) [facility] GLUCOSE, BLOOD (POC)on 04-05 Glucose [Mass/Vol] 198 mg/dL Abnormal 74 - 99 mg/dL [facility] Comment on above: Location:[address], [address] The Accu-Chek Inform II glucose meter has [...] Interpretation and review of laboratory results Abnormal [facility] HISTORY PHYSICALon HISTORY PHYSICAL HNO ID: [id number] Author: PHOEBE VAZQUEZ MD Service: General Surgery [...] [facility] / Outside records reviewed. Latest Ref [facility] 10/15/2023 WBC 3.70 - 11.00 k/uL 4.67 [...] Abs Lymph 1.00 - 4.00 k/uL 1.82 [place]% % 11.0 Abs [place] <0.87 k/uL 0.51 [place]% % 0.0 Abs [...] ascending aorta repair Hyperlipidemia Hypertension Non-ST elevation NM (NSTEMI) (HCC) 06/24 Pacemaker Paroxysmal atrial fibrillation (HCC) RBBB (right bundle branch block) S/P aortic valve replacement [facility] mechanical Syncope Tachy-fernando syndrome (HCC) Tobacco abuse chronic Tobacco user Type 2 diabetes mellitus (HCC) PAST SURGICAL HISTORY PAST SURGICAL HISTORY Procedure Laterality Date ABD AORTIC ANEURYSM REPAIR ASCENDING AORTA GRAFT W/AORTIC ROOT COLONOSCOPY SCREENING In [place] CORONARY ARTERY BYPASS GRAFT HX 2016 2005 HEART CATHETERIZATION 06/24/2016 HEART VALVE REPLACEMENT 2017 Aortic x2 ;2015 HERNIA REPAIR HX PACEMAKER 06/25/2016 REPLACEMENT AORTIC VALVE W BYPASS Allergies: ALLERGIES ALLERGIES No Known Allergies Medications: CURRENT MEDICATIONS Insulin [place], Disposable, (BD ULTRA-FINE NORBERTO PEN NEEDLE) 32 [...] daily. Blood-Glucose Meter,Continuous (FREESTYLE MANGO 3 READER) [facility] Use to check blood sugar at least [...] before eating. dicyc (more content not included)... [facility] Pathology biopsy report Jose Carlos (Tiss)on 04-05-2024 AP DISCLAIMER [facility] Comment on above: Order Comment: Speci men Type: TISSUE SPECIMEN [facility] Address: [address] [place] [address] Result Comment: Etienne Montano Test (LDT) Disclaimer: Performance characteristics of immunohistochemical, immunofluorescent, and chromogenic in-situ hybridization tests have been determined by the performing laboratory within [facility]'s Kye Jolene [facility] Pathology and Laboratory Medicine Department ([facility], [facility], [facility], [facility], [facility], [facility], or [facility]) in a manner consistent with CLIA [...] #### 6 6121-5 #### [facility] CLIA [id number] [address] [place] [address] LAB CLIA [id number] [address] [place] [address] CASE REPORT Normal [facility] Comment on above: Order Comment: Speci men Type: TISSUE SPECIMEN [facility] Address: [address] [place] [address] Result Comment: [facility] Pathology Report Case: [id number] Authorizing Provider: Phoebe Vazquez MD Collected: 04/05/2024 12:25 PM Ordering Location: [facility]oscopy Received: 04/05/2024 02:20 PM Pathologist: Wilma Pham MD Specimens: A) - Small Bowel, Duodenum, Biopsy B) - Stomach, Biopsy, antrum C) - Esophagus, Mid, Biopsy D) - Esophagogastric Junction, Biopsy E) - Colon, Biopsy Performed By: #### 6 6121-5 #### [facility] CLIA [id number] [address] [place] [address] LAB CLIA [id number] [address] [place] [address] FINAL DIAGNOSIS Normal [facility] Comment on above: Order Comment: Speci men Type: TISSUE SPECIMEN [facility] Address: [address] [place] [address] Result Comment: A. S mall bowel, biopsy: [...] EST Performed By: #### 6 6121-5 #### [facility] CLIA [id number] [address] [place] [address] [place] [facility] CLIA [id number] [address] [place] [address] [place] FINAL PERFORMING LAB Normal [facility] Comment on above: Order Comment: Speci men Type: TISSUE SPECIMEN [facility] Address: [address] [place] [address] Result Comment: Diag nostic interpretation performed at: [facility], [address] [place] [address] CLIA# [id number] Food Server: Adriane Long MD Performed By: #### 6 6121-5 #### [facility] CLIA [id number] [address] [place] [address] STATES [place] [facility] CLIA [id number] [address] [place] [address] [place] GROSS DESCRIPTION [facility] Comment on above: Order Comment: Speci men Type: TISSUE SPECIMEN [facility] Address: [address] [place] [address] Result Comment: A. S mall Bowel, Duodenum, [...] 0.2 cm. Totally submitted in one cassette. [facility] April 05, 2024 9:22 PM Gross examination performed at [facility], [address] [place] [address] Performed By: #### 6 6121-5 #### [facility] CLIA [id number] [place] [facility] CLIA [id number] [address] OF [facility] Upper GI endoscopyon 04-05- 025 Upper GI endoscopy [facility] Gastrointestinal Endoscopy Patient Name: Analilia Melendrez Procedure Date: 04/05/2024 12:04 PM Date of : 1960 Admit Type: Outpatient Age: 63 Room: [facility] Gender: Male Note Status: Finalized Attending MD: Phoebe Vazquez MD, [id number] Procedure: Upper GI endoscopy Indications: Iron deficiency anemia Providers: Phoebe Vazquez MD Patient Profile: Refer to note in patient chart for documentation of history and physical. Referring Physician: Susana Ramirez (Referring MD) Medicines: See the Anesthesia note for documentation of the administered medications Complications: No immediate complications. Requesting Provider: Procedure: Pre-Anesthesia Assessment: - Monitored anesthesia care under the supervision of a LITHOGRAPHIC RETOUCHER APPRENTICE was determined to be medically necessary for [...] pathology results Procedure Code(s): --- Professional --- 70774, Esophagogastroduodenosc opy, flexible, transoral; with biopsy, single or multiple Diagnosis Code(s): --- Professional --- D50.9, Iron deficiency anemia, unspecified K22.89, Other specified disease of esophagus K31.89, Other diseases of stomach and duodenum CPT copyright 2020 [employer]. All rights reserved. The codes documented in this report are preliminary and upon social worker delinquency prevention review may be revised to meet current compliance requirements. Attending Participation: I personally performed the entire procedure. Scope In: 12:23:40 PM Scope Out: 12:29:35 PM MD Phoebe Fuchs MD 04/05/2024 12:33:21 PM This report has been signed electronically by Phoebe Vazquez MD Number of Addenda: 0 Note Initiated On: 04/05/2024 12:04 PM Estimated Blood Loss: Estimated blood loss was minimal. [facility] 03-31-2024 [facility] 03-29-2024 [facility] 03-24-2024 [facility] Telephone (MEPRAD) ANALILIA MELENDREZ ([id number]) 1960 M Date Time Provider Department 03/24/24 [...] NAME: Analilia Melendrez DATE: March 24, 2024 Allergies As of Date: 03/24/2024 (No Known Allergies) Date Reviewed: 12/27/2023 Reviewed by: Marianna Wagner APRN.HIGH SCHO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 - Fully Assessed Prescriptions as of 03/24/2024 [...] fourteen (14) days to upper arm. 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 Normal [facility] CNPN [facility] HbA1c (Bld)on 03-14-2024 Average glucose Estimated from glycated hemoglobin (Bld) [Mass/Vol] 171 mg/dL [facility] Comment on above: Order Comment: Speci men Type: BLOOD SPECIMENOrdering Facility: [facility] Address: [address] [place] [address] Result Comment: eAG: (Estimated average glucose) is a calculated value from HgbA1c and is clearance representative of the average blood glucose level in the last 2-3 month period. Performed By: #### 5 5454-3 ####[facility] LABCLIA [id number] [place] [id number] [place] HbA1c (Bld) [Mass fraction] 7.6 % High 4.3-5.6 [facility] Comment on above: Order Comment: Speci men Type: BLOOD SPECIMENOrdering Facility: [facility] Address: [address] [place] [address] Result Comment: [place] Diabetes Association guidelines indicate that patients with HgbA1c in the range 5.7-6.4% are at increased risk for development of diabetes, and intervention by lifestyle modification may be beneficial. HgbA1c greater or equal to 6.5% is considered diagnostic of diabetes. Performed By: #### 5 5454-3 ####[facility] LABCLIA [id number] [address] [place] 03-13-2024 [facility] Telephone (AGFAMPLE) ANALILIA MELENDREZ ([id number]) 1960 M Date Time Provider Department 03/13/24 [...] He had to cancel his appointment at [facility] and they will call him tomorrow with a reschedule at [facility]. Allergies As of Date: 03/13/2024 (No Known Allergies) Date Reviewed: 12/27/2023 Reviewed by: Marianna Wagner APRN.HIGH SCHO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 - Fully Assessed Reason for Visit: Patient Question [7167] Prescriptions as of 03/14/2024 - atorvastatin (LIPITOR) [...] fourteen (14) days to upper arm. - xkdevt-oqehbctt-aimhxwr (CREON 36) 36,000-114,000- 180,000 unit delayed release capsule Take 2 pills by mouth with first bite of meal and take 1 pill with snacks. Max 10 per day. - Cholecalciferol, Vitamin D3, (VITAMIN D-3) 50 mcg (2,000 unit) cap Take 1 capsule by mouth once daily. 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 Normal [facility] CNPNon 02-21-2024 CNPN Telephone (AGFAMPLE) ANALILIA MELENDREZ ([id number]) 1960 M Date Time Provider Department 02/21/24 [...] Date Reviewed: 12/27/2023 Reviewed by: Marianna Wagner APRN.HIGH SCHO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 - Fully Assessed Reason for Visit: Patient Question [1327] Prescriptions as of 02/21/2024 - pantoprazole DR [...] fourteen (14) days to upper arm. 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/2017 Chronic pancreatitis (HCC) [K86.1] 08/09/2023 Calcium [...] uncomplicated* 7 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] 05/20/2023 care home (current) use of insulin (HCC) [Z79.4]01/03/2017 Pansystolic murmur [R01.1] 08/09/2023 Unspecified severe protein-calorie malnutrition*05/20/2023 Encounter Status:Closed by GIULIA ROGEL on 02/21/24 [facility] CNPChanel 02-16-2024 [facility] Telephone (AGFAMPLE) ANALILIA MELENDREZ ([id number]) 1960 M Date Time Provider Department 02/16/24 [...] Date Reviewed: 12/27/2023 Reviewed by: Marianna Wagner APRN.HIGH SCHO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 - Fully Assessed Reason for Visit: Lab Orders [0378] Prescriptions as of 03/03/2024 - pantoprazole DR [...] fourteen (14) days to upper arm. 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 01-14-2024 [facility] 12-31-2023 [facility] CNOVon 12-27-2023 CNOV Office Visit (DALJIT CALL) SAURAVANALILIA LANDAVERDE ([id number]) 1960 Date Time Provider Department 12/27/23 2:00 PM MARIANNA WAGNER During your visit today, we recorded the following information about you: Temperature Pulse Respiration Blood pressure 97.8 degrees 75/minute 16/minute 126/70 Weight Height 61.7 kg 1.803 m Marianna Wagner APRN.[facility] 01/08/2024 8:36 PM Signed CHIEF COMPLAINT: Analilia [...] Got it through a diabetic clinic in [facility] has been refilling it for [...] awhile). Was supposed to follow with a workers compensation analyst Hx of aortic valve replacement Had a congenital aortic aneurysm Has a pacemaker Has had heart attack He is not following with any specialists right now. States he either had a seizure or stroke and was placed in the hospital and then went to a intermediate for 5 weeks. 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 Started smoking [...] repair Hyperlipidemia (more content not included)... Normal [facility] CNOVon 12-24-2023 CNOV [facility] 12-16-2023 SAYRA Telephone (AGFAMPLE) DARRINANALILIA VERNON ([id number]) 1960 M Date Time Provider Department 12/16/23 MARIANNA WAGNER During your visit today, we recorded the following information about you: Suzi Haynes MA 12/16/2023 5:04 PM Signed ----- Message from Marianna Wagner APRN.HIGH SCHO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 sent at 12/15/2023 6:32 PM EST ----- [...] [95] Prescriptions as of 12/16/2023 - Insulin [place], Disposable, (BD ULTRA-FINE NORBERTO PEN NEEDLE) 32 [...] - Blood-Glucose Meter,Continuous (FREESTYLE MANGO 3 READER) [facility] [place] to check blood sugar at least [...] (HCC) [I71.9] 08/09/2023 Atherosclerotic heart disease of [place] coron[place]*01/03/2017 Chronic pancreatitis (HCC) [K86.1] 08/09/2023 Calcium [...] uncomplicated* 7 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] 05/20/2023 care home (current) use of insulin (HCC) [Z79.4]01/03/2017 Pansystolic murmur [R01.1] 08/09/2023 Unspecified severe protein-calorie malnutrition*05/20/2023 Encounter Status: (more content not included)... Normal [facility] ALLIED HEALTHon 12-08-2023 ALLIED HEALTH HNO ID: [id number] Author: ANNY DURHAM CT Service: Radiology Author [...] PATIENT PRESENTS WITH AN IMPLANTABLE OR ATTACHED TUBE OPERATOR: No RADIOLOGY DEPARTMENT: CT; Exam(s) Completed: Pancreas PERIPHERAL IV DATA: Site assessment: Clean,Dry and Intact, Site disposition Discontinued SIGNED BY: KIRA Thomas December 08, 2023 10:57 AM [facility] CT PANCREAS W IVCONon 2023 CT PANCREAS W IVCON * * *Final Report* * * DATE OF EXAM: Dec 08 2023 11:00AM [facility] [place] [facility] [place] CT PANCREAS W IVCON / [...] at least 2017. No identifiable pancreatic mass. Cnc Maintenance Mechanic: PSCB Transcribe Date/Time: Dec 15 2023 10:26A Dictated by : SULEMAN SANCHEZ MD This examination was interpreted and the report reviewed and electronically signed by: SULEMAN SANCHEZ MD on Dec 15 2023 10:37AM EST [id number] [facility] NURSING PROGon 12-08-2023 NURSING PROG HNO ID: [id number] Author: SIGRID MATA RN Service: Radiology Author [...] DATE: December 08, 2023 TIME: 10:42 AM [facility] 12-07-2023 SAYRA Telephone (KI) ANALILIA MELENDREZ ([id number]) 1960 M Date Time Provider Department 12/07/23 MARIANNA WAGNER During your visit today, we recorded the following information about you: QuedenMarianna APRN.CNP 12/07/2023 1:02 PM Signed New order for CT pancreas was placed since last one was discontinued. Allergies As of Date: 12/07/2023 (No Known Allergies) Date Reviewed: 12/02/2023 Reviewed by: Ramy Garcia RT(R) - Fully Assessed Primary Visit Diagnosis:Diarrhea, unspecified type [R19.7] Other Visit Diagnosis:Acute pancreatitis, unspecified complication status, unspecified pancreatitis type [K85.90] Order(s):CT PANCREAS W IVCON [[id number]] Order #: [id number] FUTURE iv contrast (will be provided with [...] CT contrast administration guidelines link. 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 [facility] C[facility] Telephone (AGFAMPLE) ANALILIA MELENDREZ ([id number]) 1960 M Date Time Provider Department 11/25/23 MARIANNA WAGNER During your visit today, we recorded the following information about you: Twyla Espana 11/25/2023 12:59 PM Signed Denial: CPT 81863-AF PANCREAS W IVCON Denial Type: Payer Clinical [...] Yes Peer to Peer Deadline: 11/30/2023 Insurance Case#[id number] Peer to Peer opt 2 (enter tracking#) / opt 1 Denial sent to providers email Marianna Wagner APRN.CNP 11/29/2023 12:17 PM Signed Completed peer to peer for CT pancreas with IV contrast and obtained approval. # [id number] until 11/30/2023-12/31/2023 He is scheduled tomorrow for the CT. Spoke with Dr. Murillo with [facility] for reference. 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 Normal [facility] 11-16-2023 CNPN Telephone (AGFAMPLE) ANALILIA MELENDREZ ([id number]) 1960 M Date Time Provider Department 11/16/23 MARIANNA WAGNER During your visit today, we recorded the following information about you: Suzi Haynes MA 11/16/2023 2:33 PM Signed Patient left message stating he saw the air conditioning equipment mechanic yesterday and they are very worried about his stomach and wants him to be seen by GI sooner than 12/24/23. Patient states he has called and they cannot see him any sooner and wanted to know if there was anything Marianna could do. Please advise. FLORENTINO Jackson Brittny A, APRN.HIGH SCHO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 11/16/2023 3:07 PM Signed I have already [...] him to the wait list. Carolinasonja NeilJigna Marianna Wagner APRN.HIGH SCHO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 11/16/2023 4:49 PM Signed Please let the [...] - Blood-Glucose Meter,Continuous (FREESTYLE MANGO 3 READER) [facility] Use to check blood sugar at least [...] tablet by mouth once daily. 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 Normal [facility] 11-07-2023 SAYRA Telephone (AGFAMPLE) ANALILIA MELENDREZ ([id number]) 1960 M Date Time Provider Department 11/07/23 [...] Date Reviewed: 10/14/2023 Reviewed by: Marianna Wagner APRN.HIGH SCHO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 - Fully Assessed Reason for Visit: Results [95] Orders [681] Primary Visit Diagnosis:Diarrhea, unspecified type [R19.7] Other Visit Diagnosis:Acute pancreatitis, unspecified complication status, unspecified pancreatitis type [K85.90] Order(s):CT PANCREAS W IVCON [[id number]] Order #: [id number] FUTURE Prescriptions as of 11/09/2023 - metFORMIN (GLUCOPHAGE) 500 mg tablet Take 1 tablet by mouth daily with breakfast. - Cholecalciferol, Vitamin D3, (VITAMIN D-3) 50 mcg (2,000 unit) cap Take 1 capsule by mouth once daily. - ferrous sulfate 325 mg (65 mg iron) tablet Take 1 tablet by mouth once daily. - Blood-Glucose Meter,Continuous (FREESTYLE MANGO 3 READER) [facility] Use to check blood sugar at least [...] tablet by mouth once daily. - Insulin [place], Disposable, (NORBERTO PEN NEEDLE) 32 gauge x [...] (HCC) [I71.9] 08/09/2023 Atherosclerotic heart disease of [place] coron[place]*01/03/2017 Chronic pancreatitis (HCC) [K86.1] 08/09/2023 Calcium [...] uncomplicated* 7 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] 05/20/2023 care home (current) use of insulin (HCC) [Z79.4]01/03/2017 Pansystolic murmur [R01.1] 08/09/2023 Unspecified severe protein-calorie malnutrition*05/20/2023 Encoun (more content not included)... Normal [facility] .Auto Diffon 10-30-2023 Basophil, Absolute 0.1 10 3/mcL Normal 0.0-0.2 [facility] Comment on above: Performed By: #### A NITESH, ALC, MORPH, ACETA, CBC, LIP, ADIFF, TROPHS, MG, MDW, CMP, NICOLLE, GFR #### [address] [address] Basophils/100 WBC (Bld) 1.3 % Normal 0.0-2.5 [facility] Comment on above: Performed By: #### A NITESH, ALC, MORPH, ACETA, CBC, LIP, ADIFF, TROPHS, MG, MDW, CMP, NICOLLE, GFR #### [address] [address] Eosinophil, Absolute 0.0 10 3/mcL Normal 0.0-0.7 [facility] Comment on above: Performed By: #### A NITESH, ALC, MORPH, ACETA, CBC, LIP, ADIFF, TROPHS, MG, MDW, CMP, NICOLLE, GFR #### [address] [address] Eosinophils/100 WBC (Bld) 0.3 % Normal 0.0-7.0 [facility] Comment on above: Performed By: #### A NITESH, ALC, MORPH, ACETA, CBC, LIP, ADIFF, TROPHS, MG, MDW, CMP, NICOLLE, GFR #### [address] [address] Lymphocyte, Absolute 1.3 10 3/mcL Normal 0.9-4.3 [facility] Comment on above: Performed By: #### A NITESH, ALC, MORPH, ACETA, CBC, LIP, ADIFF, TROPHS, MG, MDW, CMP, NICOLLE, GFR #### [address] [address] Lymphocytes/100 WBC (Bld) 24.0 % Normal 20.0-40.0 [facility] Comment on above: Performed By: #### A NITESH, ALC, MORPH, ACETA, CBC, LIP, ADIFF, TROPHS, MG, MDW, CMP, NICOLLE, GFR #### [address] [address] Monocyte, Absolute 0.4 10 3/mcL Normal 0.1-1.4 [facility] Comment on above: Performed By: #### A NITESH, ALC, MORPH, ACETA, CBC, LIP, ADIFF, TROPHS, MG, MDW, CMP, NICOLLE, GFR #### [address] [address] Monocytes/100 WBC (Bld) 7.2 % Normal 2.0-13.0 [facility] Comment on above: Performed By: #### A NITESH, ALC, MORPH, ACETA, CBC, LIP, ADIFF, TROPHS, MG, MDW, CMP, NICOLLE, GFR #### [address] [address] Neutrophils/100 WBC (Bld) 67.2 % Normal 50.0-75.0 [facility] Comment on above: Performed By: #### A NITESH, ALC, MORPH, ACETA, CBC, LIP, ADIFF, TROPHS, MG, MDW, CMP, NICOLLE, GFR #### [address] [address] .GFRon 10-30-2023 GFR Non- 51 ml/min/1.73sqm Normal [facility] Comment on above: Result Comment: GFR [...] TROPHS, MG, MDW, CMP, NICOLLE, GFR #### [address] [address] GFR 61 ml/min/1.73sqm Normal [facility] Comment on above: Result Comment: GFR [...] TROPHS, MG, MDW, CMP, NICOLLE, GFR #### [id number] [place], [place] [address] .Navin 10-30-2023 Monocyte Distribution Width 16.35 Normal 0.00-20.00 [facility] Comment on above: Result Comment: For ED adult patients suspected of sepsis, MDW<=20.0 does not rule out sepsis or risk of sepsis Performed By: #### A NITESH, ALC, MORPH, ACETA, CBC, LIP, ADIFF, TROPHS, MG, MDW, CMP, NICOLLE, GFR #### [address] [address] .Morphon 10-30-2023 Macrocytosis 2+ Normal [facility] Comment on above: Performed By: #### A NITESH, ALC, MORPH, ACETA, CBC, LIP, ADIFF, TROPHS, MG, MDW, CMP, NICOLLE, GFR #### [place] [address] Platelet Estimate Normal Normal [facility] Comment on above: Performed By: #### A NITESH, ALC, MORPH, ACETA, CBC, LIP, ADIFF, TROPHS, MG, MDW, CMP, NICOLLE, GFR #### [place] [address] .NEUABSon 10-30-2023 Neutrophil, Absolute 3.6 10 3/mcL Normal 2.3-8.1 [facility] Comment on above: Performed By: #### A NITESH, ALC, MORPH, ACETA, CBC, LIP, ADIFF, TROPHS, MG, MDW, CMP, NICOLLE, GFR #### [place] [address] ACETAon 10-30-2023 Acetaminophen [Mass/Vol] 27.4 ug/mL Normal 10.0-30.0 [facility] Comment on above: Performed By: #### A NITESH, ALC, MORPH, ACETA, CBC, LIP, ADIFF, TROPHS, MG, MDW, CMP, NICOLLE, GFR #### [place] [address] Keren 10-30-2023 Ethanol Level <3 Normal 0-3 [facility] Comment on above: Performed By: #### A NITESH, ALC, MORPH, ACETA, CBC, LIP, ADIFF, TROPHS, MG, MDW, CMP, NICOLLE, GFR #### [address] [address] CBCon 10-30-2023 Erythrocyte distribution width (RBC) [Ratio] 14.8 % Normal 11.5-15.5 [facility] Comment on above: Performed By: #### A NITESH, ALC, MORPH, ACETA, CBC, LIP, ADIFF, TROPHS, MG, MDW, CMP, NICOLLE, GFR #### [place] [address] Hematocrit (Bld) [Volume fraction] 28.5 % Low 40.0-52.0 [facility] Comment on above: Performed By: #### A NITESH, ALC, MORPH, ACETA, CBC, LIP, ADIFF, TROPHS, MG, MDW, CMP, NICOLLE, GFR #### [place] [address] Hgb 9.8 G/dL Low 13.0-17.5 [facility] Comment on above: Performed By: #### A NITESH, ALC, MORPH, ACETA, CBC, LIP, ADIFF, TROPHS, MG, MDW, CMP, NICOLLE, GFR #### [place] [address] MCH (RBC) [Entitic mass] 38.1 pg High 27.0-33.0 [facility] Comment on above: Performed By: #### A NITESH, ALC, MORPH, ACETA, CBC, LIP, ADIFF, TROPHS, MG, MDW, CMP, NICOLLE, GFR #### [place] [address] MCHC 34.5 G/dL Normal 32.0-36.0 [facility] Comment on above: Performed By: #### A NITESH, ALC, MORPH, ACETA, CBC, LIP, ADIFF, TROPHS, MG, MDW, CMP, NICOLLE, GFR #### [place] [address] MCV (RBC) [Entitic vol] 110.2 fL High 81.0-100.0 [facility] Comment on above: Performed By: #### A NITESH, ALC, MORPH, ACETA, CBC, LIP, ADIFF, TROPHS, MG, MDW, CMP, NICOLLE, GFR #### [address] [address] Platelet 176 10 3/mcL Normal 150-450 [facility] Comment on above: Performed By: #### A NITESH, ALC, MORPH, ACETA, CBC, LIP, ADIFF, TROPHS, MG, MDW, CMP, NICOLLE, GFR #### [address] [address] Platelet mean volume (Bld) [Entitic vol] 8.8 fL Normal 6.4-10.5 [facility] Comment on above: Performed By: #### A NITESH, ALC, MORPH, ACETA, CBC, LIP, ADIFF, TROPHS, MG, MDW, CMP, NICOLLE, GFR #### [address] [address] RBC 2.58 10 6/mcL Low 4.50-6.00 [facility] Comment on above: Performed By: #### A NITESH, ALC, MORPH, ACETA, CBC, LIP, ADIFF, TROPHS, MG, MDW, CMP, NICOLLE, GFR #### [address] [address] WBC 5.3 10 3/mcL Normal 4.5-10.8 [facility] Comment on above: Performed By: #### A NITSEH, ALC, MORPH, ACETA, CBC, LIP, ADIFF, TROPHS, MG, MDW, CMP, NICOLLE, GFR #### [address] [address] CMPon 10-30-2023 Albumin Level 1.9 G/dL Low 3.4-4.8 [facility] Comment on above: Performed By: #### A NITESH, ALC, MORPH, ACETA, CBC, LIP, ADIFF, TROPHS, MG, MDW, CMP, NICOLLE, GFR #### [address] [address] Albumin/Globulin [Mass ratio] 0.6 {ratio} Low 1.1-2.5 [facility] Comment on above: Performed By: #### A NITESH, ALC, MORPH, ACETA, CBC, LIP, ADIFF, TROPHS, MG, MDW, CMP, NICOLLE, GFR #### [place] [address] ALP [Catalytic activity/Vol] 105 U/L Normal 40-135 [facility] Comment on above: Performed By: #### A NITESH, ALC, MORPH, ACETA, CBC, LIP, ADIFF, TROPHS, MG, MDW, CMP, NICOLLE, GFR #### [place] [address] ALT [Catalytic activity/Vol] 19 U/L Normal 16-63 [facility] Comment on above: Performed By: #### A NITESH, ALC, MORPH, ACETA, CBC, LIP, ADIFF, TROPHS, MG, MDW, CMP, NICOLLE, GFR #### [place] [address] AST [Catalytic activity/Vol] 45 U/L High 10-40 [facility] Comment on above: Performed By: #### A NITESH, ALC, MORPH, ACETA, CBC, LIP, ADIFF, TROPHS, MG, MDW, CMP, NICOLLE, GFR #### [place] [address] Bili Total 0.2 mg/dL Normal 0.2-1.0 [facility] Comment on above: Result Comment: Use of this assay is not recommended for patients undergoing treatment with eltrombopag due to the potential for falsely elevated results. Performed By: #### A NITESH, ALC, MORPH, ACETA, CBC, LIP, ADIFF, TROPHS, MG, MDW, CMP, NICOLLE, GFR #### [place] [address] BUN/Creatinine Ratio 9 ratio Normal 7-27 [facility] Comment on above: Performed By: #### A NITESH, ALC, MORPH, ACETA, CBC, LIP, ADIFF, TROPHS, MG, MDW, CMP, NICOLLE, GFR #### [place] [address] Calcium [Mass/Vol] 7.9 mg/dL Low 8.4-10.2 [facility] Comment on above: Performed By: #### A NITESH, ALC, MORPH, ACETA, CBC, LIP, ADIFF, TROPHS, MG, MDW, CMP, NICOLLE, GFR #### [address] [address] Chloride [Moles/Vol] 103 mmol/L Normal 98-107 [facility] Comment on above: Performed By: #### A NITESH, ALC, MORPH, ACETA, CBC, LIP, ADIFF, TROPHS, MG, MDW, CMP, NICOLLE, GFR #### [place] [address] CO2 [Moles/Vol] 36 mmol/L High 23-31 [facility] Comment on above: Performed By: #### A NITESH, ALC, MORPH, ACETA, CBC, LIP, ADIFF, TROPHS, MG, MDW, CMP, NICOLLE, GFR #### [address] [address] Creatinine [Mass/Vol] 1.42 mg/dL High 0.70-1.30 [facility] Comment on above: Result Comment: Test ing performed on Siemens Dimension EXL analyzer using a modified kinetic Michael technique. Performed By: #### A NITESH, ALC, MORPH, ACETA, CBC, LIP, ADIFF, TROPHS, MG, MDW, CMP, NICOLLE, GFR #### [place] [address] Electrolyte Balance 5.0 mEq/L Normal 4.0-15.0 [facility] Comment on above: Performed By: #### A NITESH, ALC, MORPH, ACETA, CBC, LIP, ADIFF, TROPHS, MG, MDW, CMP, NICOLLE, GFR #### [place] [address] Globulin 3.2 G/dL Normal [facility] Comment on above: Performed By: #### A NITESH, ALC, MORPH, ACETA, CBC, LIP, ADIFF, TROPHS, MG, MDW, CMP, NICOLLE, GFR #### [address] [address] Glucose [Mass/Vol] 141 mg/dL High 80-115 [facility] Comment on above: Performed By: #### A NITESH, ALC, MORPH, ACETA, CBC, LIP, ADIFF, TROPHS, MG, MDW, CMP, NICOLLE, GFR #### [address] [address] Potassium [Moles/Vol] 3.5 mmol/L Normal 3.5-5.1 [facility] Comment on above: Performed By: #### A NITESH, ALC, MORPH, ACETA, CBC, LIP, ADIFF, TROPHS, MG, MDW, CMP, NICOLLE, GFR #### [address] [address] Sodium [Moles/Vol] 144 mmol/L Normal 136-145 [facility] Comment on above: Performed By: #### A NITESH, ALC, MORPH, ACETA, CBC, LIP, ADIFF, TROPHS, MG, MDW, CMP, NICOLLE, GFR #### [address] [address] Total Protein 5.1 G/dL Low 6.4-8.2 [facility] Comment on above: Performed By: #### A NITESH, ALC, MORPH, ACETA, CBC, LIP, ADIFF, TROPHS, MG, MDW, CMP, NICOLLE, GFR #### [address] [address] Urea nitrogen [Mass/Vol] 13 mg/dL Normal 7-18 [facility] Comment on above: Performed By: #### A NITESH, ALC, MORPH, ACETA, CBC, LIP, ADIFF, TROPHS, MG, MDW, CMP, NICOLLE, GFR #### [address] [address] [address] ABD/PELVIS W/ IV CONTRAST ONLYon 10-30-2023 [...] 10/30/2023 5:39:58 PM Ordering Provider: ANN-MARIE DILLON [facility] CT HEAD OR BRAIN W/O SHAWN Braxton 10-30-2023 CT HEAD OR BRAIN W/O CONTRAST [...] PM Ordering Provider: ANN-MARIE White [facility] LABORATORYOrdered By: Jaspal Calix on 10-30-2023 [...] ng/L Male: 0-76 ng/L Testing performed on [employer] using a homogeneous sandwich chemiluminescent immunoassay based on [employer] technology. Urea nitrogen [Mass/Vol] 13 mg/dL Normal 7 - 18 mg/dL AO ADM SS Urea nitrogen/Creatinine [Mass ratio] 9 ratio Normal 7 - 27 ratio AO ADM SS WBC (Bld) [#/Vol] 5.3 103/mcL Normal 4.5 - 10.8 10^3/mcL AO Workflow SS LIPon 10-30-2023 Lipase Level <6 Low 16-77 [facility] Comment on above: Performed By: #### A NITESH, ALC, MORPH, ACETA, CBC, LIP, ADIFF, TROPHS, MG, MDW, CMP, NICOLLE, GFR #### [address] [address] MGon 10-30-2023 Magnesium [Mass/Vol] 1.9 mg/dL Normal 1.8-2.4 [facility] Comment on above: Performed By: #### A NITESH, ALC, MORPH, ACETA, CBC, LIP, ADIFF, TROPHS, MG, MDW, CMP, NICOLLE, GFR #### [address] [address] SALon 10-30-2023 Salicylate Level 12.1 mg/dL Normal 2.8-20.0 [facility] Comment on above: Performed By: #### A NITESH, ALC, MORPH, ACETA, CBC, LIP, ADIFF, TROPHS, MG, MDW, CMP, NICOLLE, GFR #### [address] [address] TROPHSon 10-30-2023 High Sensitivity Troponin I 26 ng/L Normal 0-76 [facility] Comment on above: Result Comment: High Sensitive Troponin I Reference Ranges: Female: 0-51 ng/L Male: 0-76 ng/L Testing performed on [employer] using a homogeneous sandwich chemiluminescent immunoassay based on [employer] technology. Performed By: #### A NITESH, ALC, MORPH, ACETA, CBC, LIP, ADIFF, TROPHS, MG, MDW, CMP, NICOLLE, GFR #### [place] [id number] UAon 10-30-2023 Color (U) Yellow Normal [facility] Comment on above: Performed By: #### A NITESH, ALC, MORPH, ACETA, CBC, LIP, ADIFF, TROPHS, MG, MDW, CMP, NICOLLE, GFR #### [place] [id number] Glucose (U) [Mass/Vol] 500 mg/dL Abnormal Negative [facility] Comment on above: Performed By: #### A NITESH, ALC, MORPH, ACETA, CBC, LIP, ADIFF, TROPHS, MG, MDW, CMP, NICOLLE, GFR #### [place] [id number] Ketones Ql (U) Negative Normal Negative [facility] Comment on above: Performed By: #### A NITESH, ALC, MORPH, ACETA, CBC, LIP, ADIFF, TROPHS, MG, MDW, CMP, NICOLLE, GFR #### [place] [id number] UA Appear Clear Normal Clear [facility] Comment on above: Performed By: #### A NITESH, ALC, MORPH, ACETA, CBC, LIP, ADIFF, TROPHS, MG, MDW, CMP, NICOLLE, GFR #### [place] [id number] UA Blood Negative Normal Negative [facility] Comment on above: Performed By: #### A NITESH, ALC, MORPH, ACETA, CBC, LIP, ADIFF, TROPHS, MG, MDW, CMP, NICOLLE, GFR #### [place] [id number] UA Leuk Est Negative Normal Negative [facility] Comment on above: Performed By: #### A NITESH, ALC, MORPH, ACETA, CBC, LIP, ADIFF, TROPHS, MG, MDW, CMP, NICOLLE, GFR #### [place] [id number] UA Nitrite Negative Normal Negative [facility] Comment on above: Performed By: #### A NITESH, ALC, MORPH, ACETA, CBC, LIP, ADIFF, TROPHS, MG, MDW, CMP, NICOLLE, GFR #### [place] [address] UA pH >=9.0 Normal [facility] Comment on above: Performed By: #### A NITESH, ALC, MORPH, ACETA, CBC, LIP, ADIFF, TROPHS, MG, MDW, CMP, NICOLLE, GFR #### [place] [address] UA Protein Negative Normal Negative [facility] Comment on above: Performed By: #### A NITESH, ALC, MORPH, ACETA, CBC, LIP, ADIFF, TROPHS, MG, MDW, CMP, NICOLLE, GFR #### [place] [address] UA Spec Grav 1.015 Normal 1.015-1.025 [facility] Comment on above: Performed By: #### A NITESH, ALC, MORPH, ACETA, CBC, LIP, ADIFF, TROPHS, MG, MDW, CMP, NICOLLE, GFR #### [place] [address] UA Specimen Type Not Given Normal [facility] Comment on above: Performed By: #### A NITESH, ALC, MORPH, ACETA, CBC, LIP, ADIFF, TROPHS, MG, MDW, CMP, NICOLLE, GFR #### [place] [address] UA Urobilinogen 0.2 E.U./dL Normal 0.2-1.0 [facility] Comment on above: Performed By: #### A NITESH, ALC, MORPH, ACETA, CBC, LIP, ADIFF, TROPHS, MG, MDW, CMP, NICOLLE, GFR #### [place] [address] Urobilinogen (U) [Mass/Vol] Negative Normal Negative [facility] Comment on above: Performed By: #### A NITESH, ALC, MORPH, ACETA, CBC, LIP, ADIFF, TROPHS, MG, MDW, CMP, NICOLLE, GFR #### [place] [address] UDRUGon 10-30-2023 Amphetamine (u) Negative Normal Negative [facility] Comment on above: Performed By: #### A NITESH, ALC, MORPH, ACETA, CBC, LIP, ADIFF, TROPHS, MG, MDW, CMP, NICOLLE, GFR #### [place] [address] Barbiturate (u) Negative Normal Negative [facility] Comment on above: Performed By: #### A NITESH, ALC, MORPH, ACETA, CBC, LIP, ADIFF, TROPHS, MG, MDW, CMP, NICOLLE, GFR #### [place] [address] Benzodiazepine (u) Negative Normal Negative [facility] Comment on above: Performed By: #### A NITESH, ALC, MORPH, ACETA, CBC, LIP, ADIFF, TROPHS, MG, MDW, CMP, NICOLLE, GFR #### [place] [address] Cannabinoid (u) Negative Normal Negative [facility] Comment on above: Performed By: #### A NITESH, ALC, MORPH, ACETA, CBC, LIP, ADIFF, TROPHS, MG, MDW, CMP, NICOLLE, GFR #### [place] [address] Cocaine Ql (U) Negative Normal Negative [facility] Comment on above: Performed By: #### A NITESH, ALC, MORPH, ACETA, CBC, LIP, ADIFF, TROPHS, MG, MDW, CMP, NICOLLE, GFR #### [address] [address] Methadone Ql (U) Negative Normal Negative [facility] Comment on above: Performed By: #### A NITESH, ALC, MORPH, ACETA, CBC, LIP, ADIFF, TROPHS, MG, MDW, CMP, NICOLLE, GFR #### [address] [address] Opiate (u) Negative Normal Negative [facility] Comment on above: Performed By: #### A NITESH, ALC, MORPH, ACETA, CBC, LIP, ADIFF, TROPHS, MG, MDW, CMP, NICOLLE, GFR #### [address] [address] PCP (u) Negative Normal Negative [facility] Comment on above: Performed By: #### A NITESH, ALC, MORPH, ACETA, CBC, LIP, ADIFF, TROPHS, MG, MDW, CMP, NICOLLE, GFR #### [place] [address] Urine Drugs screened: See Below Normal [facility] Comment on above: Result Comment: This [...] TROPHS, MG, MDW, CMP, NICOLLE, GFR #### [address] [address] XR CHEST 1 VIEWon 10-30-2023 XR CHEST [...] Date: 10/30/2023 5:23:53 PM Ordering Provider: [facility] CT Abdomen and Pelvis WO con trastOrdered By: Ccf Provider on 10-21-2023 Interpretation and review of laboratory results Abnormal [facility] Radiology Result ACTIONABLE Abnormal [facility] Comment on above: This report contains [...] contact your provider for the next steps. [facility] CT Abdomen and Pelvis WO con traston [...] be communicated with the ordering provider via [employer] staff message or phone message by [facility] within 2 business days of report finalization. --END OF FINDING-- Cnc Maintenance Mechanic: PSCB Transcribe Date/Time: Oct 21 2023 3:19P Dictated by : JOSSELIN CASTELAN MD This examination was interpreted and the report reviewed and electronically signed by: JOSSELIN CASTELAN MD on Oct 21 2023 3:31PM [facility] DIVISION OF RADIOLOGY * * *Final Report* * * DATE OF EXAM: Oct 21 2023 2:47PM [facility] 0531 - CT ABD/PEL WO IVCON [...] No additional findings. DIVISION OF RADIOLOGY Provider, [facility] - 10/21/2023 * * *Final Report* * * DATE OF EXAM: Oct 21 2023 2:47PM [facility] 0531 - CT ABD/PEL WO IVCON [...] be communicated with the ordering provider via [employer] staff message or phone message by [facility] within 2 business days of report finalization. --END OF FINDING-- Cnc Maintenance Mechanic: SIGRID Transcribe Date/Time: Oct 21 2023 3:19P Dictated by : JOSSELIN CASTELAN MD This examination was interpreted and the report reviewed and electronically signed by: JOSSELIN CASTELAN MD on Oct 21 2023 3:31PM EST [facility] Radiology Study observation (narrative) [facility] 10-17-2023 SAYRA Telephone (KI) ANALILIA MELENDREZ ([id number]) 1960 M Date Time Provider Department 10/17/23 MARIANNA WAGNER During your visit today, we recorded the following information about you: Marianna Wagner APRN.[facility] 10/17/2023 2:34 PM Signed Stool positive for [...] referring him to hematology. Referral to Dr. Sebastian in [place]. Suzi Haynes MA 10/18/2023 2:46 PM Signed Patient informed of all results, recommendations, appointment information and scripts sent in. Patient states he is going to have to move one of his appointments either the GI or the CT. Per conversation with Marianna Wagner HIGH SCHO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 advised patient not to change GI appointment, left message for [facility] radiology to move patient's CT appointment. 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 difficile diarrhea [A04.72] E. coli UTI [N39.0, B96.20] Order(s):CONSULT TO HEMATOLOGY [9014] Order #: [id number]: 1 FUTURE vancomycin (VANCOCIN) 125 mg capsuleTake [...] - Blood-Glucose Meter,Continuous (FREESTYLE MANGO 3 READER) [facility] Use to check blood sugar at least [...] tablet by mouth once daily. - Insulin [place], Disposable, (NORBERTO PEN NEEDLE) 32 gauge x [...] (HCC) [I71.9] 08/09/2023 Atherosclerotic heart disease of [place] coronar*01/03/2017 Chronic pancreatitis (HCC) [K86 (more content not included)... Normal [facility] ALBUMIN/CREATININE RATIO, UR INEon 10-16-2023 Albumin DL <= 20 mg/L (U) [Mass/Vol] 135.3 mg/L [facility] Albumin/Creatinine (U) [Mass ratio] 359 mg/g High NINF - 30 mg/g [facility] Comment on above: Adult Male and Femal [...] [Mass/Vol] 37.7 mg/dL 20.0 - 300.0 mg/dL [facility] Interpretation and review of laboratory results Abnormal [facility] Urinalysis complete panel (U )on 10-15-2023 Bacteria uL 1095.3 uL High Negative [facility] Bilirubin Ql (U) Negative Negative [facility] Clarity (Unsp spec) Turbid Abnormal Clear [facility] Color (U) Yellow Yellow [facility] Epithelial cells LM.HPF (Urine sed) [#/Area] None Seen /HPF [facility] Glucose Test strip (U) [Mass/Vol] 3+ Abnormal Negative [facility] Hemoglobin Ql (U) 1+ Abnormal Negative [facility] Hyaline casts (Urine sed) [#/Area] 0 /[LPF] 0 /LPF [facility] Interpretation and review of laboratory results Abnormal [facility] Ketones Ql (U) Negative Negative [facility] Leukocyte esterase Test strip Ql (U) 2+ Abnormal Negative [facility] Nitrite Ql (U) Negative Negative [facility] pH (U) 8.0 [pH] NINF - 8.5 [facility] Protein (U) [Mass/Vol] 1+ Abnormal Negative [facility] RBC LM.HPF (Urine sed) [#/Area] 6-10 /HPF Abnormal 0-2 /HPF [facility] Specific gravity (U) [Rel density] 1.020 1.005 - 1.030 [facility] Urobilinogen Ql (U) 0.2 EU/dL 0.2-1.0 EU/dL [facility] WBC LM.HPF (Urine sed) [#/Area] /[HPF] Abnormal 0-5 /HPF [facility] This test was bhavesh lynn and its performance characteristics determined by [facility]'s [facility] Pathology and Laboratory Medicine [place] (-[facility]). It has not been cleared or approved by the FDA. -[facility] is regulated under CLIA as qualified to perform high-complexity testing. This test is used for clinical purposes. It should not be regarded as investigational or for research. [facility] CNOVon 10-14-2023 CNOV Office Visit (AGFAMP OVIDIO) ANALILIA MELENDREZ ([id number]) 1960 M Date Time Provider Department 10/14/23 11:20 AM MARIANNA WAGNER During your visit today, we recorded the following information about you: Temperature Pulse Respiration Blood pressure 97.6 degrees 60/minute 18/minute 122/70 Weight Height 61.2 kg 1.803 m Marianna Wagner APRN.HIGH SCHO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 10/19/2023 1:25 PM Addendum CHIEF COMPLAINT: Analilia [...] awhile). Was supposed to follow with a workers compensation analyst Hx of aortic valve replacement Had a congenital aortic aneurysm Has a pacemaker Has had heart attack He is not following with any specialists right now. States he either had a seizure or stroke and was placed in the hospital and then went to a intermediate for 5 weeks. 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 Started smoking [...] No date: Anxiety No date: Aortic aneurysm ([facility]) Comment: S/P Repair No date: Aortic aneurysm ([facility]) No date: Aortic valve disorder Comment: S/P Replacement No date: CAD (coronary artery disease) Comment: nonobstructive No date: Coronary artery disease No date: Depression No date: Diabetes mellitus, type II ([facility]) Comment: Insulin dependent No date: Hx of ascending aorta repair No date: Hyperlipidemia No date: Hypertension No date: Non-ST elevation NM (NSTEMI) ([facility]) Comment: 06/24 No date: NSTEMI (non-ST elevated myocardial infarction) ([facility]) No date: Pacemaker No date: Pacemaker No date: Paroxysmal atrial fibrillation ([facility]) No date: RBBB (right bundle branch block) No date: S/P aortic valve replacement Comment: 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 Normal [facility] Hemoccult Stl Ql IAon 2023 Lower GI hemoglobin IA Ql (Stl) Negative Normal Negative [facility] Comment on above: Order Comment: Speci men Type: STOOL SPECIMENOrdering Facility: [facility] Address: [address] [place] [address] Performed By: #### 2 9771-3 ####[facility] LABCLIA [id number] [place] [address] [place] O+P Spec Microon 10-14-2023 Ova and parasites identified LM Nom (Unsp spec) OVA AND PARASITE EXAM: No Parasites Seen Normal [facility] Comment on above: Performed By: #### 6 73-4 ####[facility] LABCLIA [id number] [address] [place] CNPChanel 10-07-2023 STEPHANIEN Telephone (KI) ANALILIA MELENDREZ ([id number]) 1960 M Date Time Provider Department 10/07/23 MARIANNA WAGNER During your visit today, we recorded the following information about you: Marianna Wagner APRN.HIGH SCHO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 10/07/2023 11:31 AM Signed Hgb has decreased [...] Date Reviewed: 08/09/2023 Reviewed by: Marianna Wagner APRN.HIGH SCHO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 - Fully Assessed Reason for Visit: Results [95] Orders [681] Primary Visit Diagnosis:Anemia, unspecified type [D64.9] Other Visit Diagnosis:Chronic diarrhea [K52.9] Order(s):IRON AND TIBC [SQIRON] Order #: [id number] FUTURE FERRITIN [SQFERR] Order #: [id number] FUTURE FOLATE, SERUM [SQSERFOL] Order #: [id number] FUTURE VITAMIN B12 [SQB12] Order #: [id number] FUTURE COMPLETE BLOOD COUNT AND DIFFERENTIAL [SQCBCDIF] Order #: [id number] FUTURE COMPREHENSIVE METABOLIC PANEL [SQCMP] Order #: [id number] FUTURE Prescriptions as of 10/19/2023 - vancomycin [...] - Blood-Glucose Meter,Continuous (FREESTYLE MANGO 3 READER) [facility] Use to check blood sugar at least [...] tablet by mouth once daily. - Insulin [place], Disposable, (NORBERTO PEN NEEDLE) 32 gauge x [...] (HCC) [I71.9] 08/09/2023 Atherosclerotic heart disease of [place] coronar*01/03/2017 Chronic pancreatitis (HCC) [K86.1] 08/09/2023 Calcium [...] attack) [Z8 (more content not included)... Normal [facility] Catia 09-24-2023 SAYRA Telephone (AGFAMPLE) ANALILIA MELENDREZ ([id number]) 1960 M Date Time Provider Department 09/24/23 [...] anyway. Please advise. FLORENTINO Jackson Brittny A, APRN.HIGH SCHO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 09/24/2023 10:01 AM Signed I would like [...] too. I also placed some lab orders. [facility] [address] [place] [address] Appointment: [phone] Desk: [phone] Giulia Rogel MA 09/24/2023 1:56 PM Signed Patient is informed but he gets rides through his insurance so he won't be able to picker tender helper the kit or get the blood work done for a while. He is going to try and go to [facility] to complete labs and stool study Giulia Rogel MA Allergies As of Date: 09/24/2023 (No Known Allergies) Date Reviewed: 08/09/2023 Reviewed by: Marianna Wagner APRN.HIGH SCHO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 - Fully Assessed Reason for Visit: Patient Question [1477] Primary Visit Diagnosis:Diarrhea of presumed infectious origin [R19.7] Other Visit Diagnosis:Generalized abdominal pain [R10.84] Order(s):OVA + PARA MICROSCOPIC [SQOVAP] Order #: [id number]. #:[id number] IMMUNOCHEMICAL FECAL OCCULT BLOOD TEST [SQIFOBT] Order #: [id number]. #:[id number] CRYPTOSPORIDIUM AND GIARDIA ANTIGENS BY EIA [SQOVAPSC] Order #: [id number] FUTURE C. DIFFICILE PCR [SQCDPCR] Order #: [id number] FUTURE CONSULT TO GASTROENTEROLOGY [9010] Order #: [id number]: 1 FUTURE COMPLETE BLOOD COUNT AND DIFFERENTIAL [SQCBCDIF] Order #: [id number] FUTURE COMPREHENSIVE METABOLIC PANEL [SQCMP] Order #: [id number] FUTURE Prescriptions as of 09/24/2023 - Blood-Glucose Meter,Continuous (FREESTYLE MANGO 3 READER) [facility] Use to check blood sugar at least [...] tablet by mouth once daily. - Insulin [place], Disposable, (NORBERTO PEN NEEDLE) 32 gauge x [...] thrombocytopenia [D69.5 (more content not included)... Normal [facility] 09-13-2023 SAYRA Telephone (AGFAMPLE) ANALILIA MELENDREZ ([id number]) 1960 M Date Time Provider Department 09/13/23 MARIANNA WAGNER During your visit today, we recorded the following information about you: Marianna Wagner APRN.[facility] 09/13/2023 8:59 AM Addendum Please call patient [...] Date Reviewed: 08/09/2023 Reviewed by: Marianna Wagner APRN.HIGH SCHO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 - Fully Assessed Reason for Visit: Patient Update [1234] Prescriptions as of 09/14/2023 - Blood-Glucose Meter,Continuous (FREESTYLE MANGO 3 READER) [facility] Use to check blood sugar at least [...] tablet by mouth once daily. 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 08-20-2023 SAYRA Telephone (AGFAMPLE) ANALILIA MELENDREZ ([id number]) 1960 M Date Time Provider Department 08/20/23 MARIANNA WAGNER During your visit today, we recorded the following information about you: Giulia Rogel MA 08/20/2023 10:45 AM Signed Patient called he would like an order for freestyle mango FLORENTINO Cerrato Julie, MA 08/23/2023 11:44 AM Signed Patient called again requesting a refill FLORENTINO Cerrato Brittny A, APRN.HIGH SCHO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 08/29/2023 2:43 PM Signed Order for Freestyle Mango sent into pharmacy. Marianna Wagner APRN.CNP 08/29/2023 2:43 PM Signed Addended by: MARIANNA WAGNER on: 08/29/2023 02:43 PM Modules accepted: Orders Andrew PonceFLORENTINO 08/30/2023 2:11 PM Signed Patient aware. Andrew Ponce MA Allergies As of Date: 08/20/2023 (No Known Allergies) Date Reviewed: 08/09/2023 Reviewed by: Marianna Wagner APRN.HIGH SCHO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 - Fully Assessed Reason for Visit: Patient [...] tablet by mouth once daily. - Insulin [place], Disposable, (NORBERTO PEN NEEDLE) 32 gauge x [...] (HCC) [I71.9] 08/09/2023 Atherosclerotic heart disease of [place] coronar*01/03/2017 Chronic pancreatitis (HCC) [K86.1] 08/09/2023 Calcium [...] Left ve (more content not included)... Normal [facility] CNPNon 08-16-2023 CNPN Telephone (OSCARFAMPLE) ANALILIA MELENDREZ ([id number]) 1960 M Date Time Provider Department 08/16/23 MARIANNA WAGNER During your visit today, we recorded the following information about you: Andrew Ponce MA 08/16/2023 2:21 PM Signed ----- Message from Marianna Wagner APRN.HIGH SCHO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 sent at 08/16/2023 2:14 PM EDT ----- A1C has improved to 6.8 which is considered controlled. Continue current medications. Recheck in 6 months. Andrew Ponce MA 08/16/2023 2:21 PM Signed Pt. Notified. Reminder placed. Andrew SaenzminhjaniFLORENTINO Allergies As of Date: 08/16/2023 (No Known Allergies) Date Reviewed: 08/09/2023 Reviewed by: Marianna Wagner APRN.HIGH SCHO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 - Fully Assessed Reason for Visit: Results [...] tablet by mouth once daily. 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 (HCC) [Z79.4]01/03/2017 Pansystolic murmur [R01.1] 08/09/2023 Unspecified severe protein-calorie malnutrition*05/20/2023 Encounter Status:Closed by ANDREW PONCE on 08/16/23 Normal [facility] Bacteria identified Cx Nom ( U)Ordered By: Franco Robbins on 08-12-2023 Interpretation and review of laboratory results Abnormal [facility] URINE CULTUREOrdered By: Col brielle Robbins on 08-12-2023 Bacteria identified Cx Nom (U) >=100,000 CFU/ml Escherichia coli Abnormal [facility] CNPNon 08-11-2023 STEPHANIEN Telephone (KI) ANALILIA MELENDREZ ([id number]) 1960 M Date Time Provider Department 08/11/23 MARIANNA WAGNER During your visit today, we recorded the following information about you: Marianna Wagner APRN.HIGH SCHO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 08/11/2023 6:19 PM Signed Please notify that [...] not with Lisinopril. Will forward this to health care liaison since he is a complicated case. Suzi Haynes MA 08/13/2023 9:28 AM Signed Patient informed of results, recommendations and scripts sent in. Patient states he [facility] not use [facility] he uses [facility] in [place] and would like scripts resent. Also patient states he does not take any supplements with vitamin B12. Please advise. Suzi Haynes MA Allergies As of Date: 08/11/2023 (No Known Allergies) Date Reviewed: 08/09/2023 Reviewed by: Marianna Wagner APRN.HIGH SCHO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 - Fully Assessed Reason for Visit: Results [95] Primary Visit Diagnosis:Anemia, unspecified type [D64.9] Order(s):IMMUNOCHEMICAL FECAL OCCULT BLOOD TEST [SQIFOBT] Order #: [id number]. #:[id number] cephALEXin (KEFLEX) 500 mg capsuleTake 1 capsule [...] tablet by mouth once daily. 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 Normal [facility] 25-hydroxyvitamin D3 [Mass/V ol]on 08-10-2023 Interpretation and review of laboratory results Abnormal [facility] Cobalamin (Vitamin B12) [Mas s/Vol]on 08-10-2023 Interpretation and review of laboratory results Abnormal [facility] FERRITINon 08-10-2023 Ferritin [Mass/Vol] 561.0 ng/mL 30.3 - 5 65.7 ng/mL [facility] FOLATE, SERUMon 08-10-2023 Folate [Mass/Vol] 19.5 ng/mL 4.7 - PINF ng/mL [facility] Folate [Mass/Vol]on 08-10-19 Interpretation and review of laboratory results Normal [facility] HIV 1+2 Ab IA Qlon HIV 1 and 2 Ab IA.rapid Nom (S/P/Bld) [facility] Comment on above: Test not indicated. HIV 1+2 Ab+HIV1 p24 Ag IA Ql Non-Reactive Nonreactive [facility] Comment on above: [place] Rev. Code 3701. 243(E): This information has [...] for this assay has moved from Siemens RageTankaur XP to [employer] 8000 effective November 11, 2021. Please note there may be a change in the reporting units and/or reference range. HIV immunoassay testing algorithm interpretation (S/P/Bld) [Interp] [facility] Comment on above: No evidence of HIV-1 or HIV-2 infection. Should recent infection be suspected, repeat testing may be considered 2-3 weeks after this draw. Iron and Iron binding capaci ty panelon 08-10-2023 Interpretation and review of laboratory results Abnormal [facility] Iron [Mass/Vol] 108 ug/dL 41 - 186 ug/dL [facility] Iron binding capacity [Mass/Vol] ug/dL Low 232 - 386 ug/dL [facility] Iron saturation [Mass fraction] % High 15.0 - 57.0 % [facility] No Panel Informationon 08-09 [facility] Interpretation and review of laboratory results Normal [facility] PSA/PROSTATE SPECIFIC ANTIGE N SCREENINGon 08-10-2023 Prostate specific Ag [Mass/Vol] 0.78 ng/mL NINF - 2.60 ng/mL [facility] Comment on above: Total PSA test metho dology used is the Electrochemiluminescence Immunoassay by [employer]. Total PSA values by differing methodologies cannot be interchanged. VITAMIN B12on 08-10-2023 Cobalamin (Vitamin B12) [Mass/Vol] 1523 pg/mL High 232 - 1245 pg/mL [facility] VITAMIN D 25 HYDROXYon 08-09 25-hydroxyvitamin D3 [Mass/Vol] 24.0 ng/mL Low 30.0 - PINF ng/mL [facility] Comment on above: Classification of 25 [place] Vitamin D status: Deficiency: <= 20.0 ng/ml. Insufficiency: 21.0-29.0 ng/ml. Sufficiency: >= 30.0 ng/ml. 25(OH)D3 SerPl-mCncon 2023 25-hydroxyvitamin D3 [Mass/Vol] 24.0 ng/mL Low >=30.0 [facility] Comment on above: Order Comment: Gini nowak Type: BLOOD SPECIMENOrdering Facility: [facility] Address: [address], [place] [address] Result Comment: Clas sification of 25 [place] Vitamin D status: Deficiency: <= 20.0 ng/ml. Insufficiency: 21.0-29.0 ng/ml. Sufficiency: >= 30.0 ng/ml. Performed By: #### 1 989-3 ####[facility] LABORATORYCLIA [id number] [place] [address] [place] Bacteria Ur Culton [...] , Intermediate >32 , Resistant >64 Abnormal [facility] Comment on above: Performed By: #### 6 30-4 ####[facility] LABORATORYCLIA [id number] [place] [address] [place] CBC W Auto Differential pane l (Bld)on 08-09-2023 Basophils (Bld) [#/Vol] 0.03 10*3/uL [facility] Basophils/100 WBC (Bld) 0.5 % [facility] Differential cell count method Nom (Bld) Auto [facility] Eosinophils (Bld) [#/Vol] 0.04 10*3/uL [facility] Eosinophils/100 WBC (Bld) 0.6 % [facility] Erythrocyte distribution width (RBC) [Ratio] 15.9 % High 11.5 - 15.0 % [facility] Hematocrit (Bld) [Volume fraction] 35.0 % Low 39.0 - 51.0 % [facility] Hemoglobin (Bld) [Mass/Vol] 11.4 g/dL Low 13.0 - 17.0 g/dL [facility] Immature granulocytes (Bld) [#/Vol] [facility] Immature granulocytes/100 WBC (Bld) 0.2 % [facility] Interpretation and review of laboratory results Abnormal [facility] Lymphocytes (Bld) [#/Vol] 1.31 10*3/uL [facility] Lymphocytes/100 WBC (Bld) 21.0 % [facility] MCH (RBC) [Entitic mass] 35.4 pg High 26.0 - 34.0 pg [facility] MCHC (RBC) [Mass/Vol] 32.6 g/dL 30.5 - 36.0 g/dL [facility] MCV (RBC) [Entitic vol] 108.7 fL High 80.0 - 100.0 fL [facility] Monocytes (Bld) [#/Vol] 0.57 10*3/uL NINF [facility] Monocytes/100 WBC (Bld) 9.1 % C [facility] Neutrophils (Bld) [#/Vol] 4.29 10*3/uL [facility] Neutrophils/100 WBC (Bld) 68.6 % [facility] Nucleated RBC (Bld) [#/Vol] [facility] Nucleated RBC/100 WBC (Bld) [Ratio] [facility] Platelet mean volume (Bld) [Entitic vol] 10.4 fL 9.0 - 12.7 fL [facility] Platelets (Bld) [#/Vol] 195 10*3/uL [facility] RBC (Bld) [#/Vol] 3.22 10*6/uL Low 4.20 - 6.0 0 m/uL [facility] WBC (Bld) [#/Vol] 6.25 10*3/uL [facility] Basophils (Bld) [#/Vol] 0.03 10*3/uL Normal <0.11 [facility] Comment on above: Order Comment: Speci men Type: BLOOD SPECIMENOrdering Facility: [facility] Address: [address] [place] [address] Performed By: #### 5 7021-8 ####[facility] LABCLIA [id number] [address]#### 49292-7 ####[facility] LABCLIA [id number] [address] STATES OF [facility] Basophils/100 WBC (Bld) 0.5 % Normal [facility] Comment on above: Order Comment: Speci men Type: BLOOD SPECIMENOrdering Facility: [facility] Address: [address] [place] [address] Performed By: #### 5 7021-8 ####[facility] LABCLIA [id number] [address] [place]#### 04376-2 ####[facility] LABCLIA [id number] [place] [address] [place] Differential cell count method Nom (Bld) Auto Normal [facility] Comment on above: Order Comment: Speci men Type: BLOOD SPECIMENOrdering Facility: [facility] Address: [address] [place] [address] Performed By: #### 5 7021-8 ####[facility] [place] LABCLIA [id number] [place] [address] [place]#### 19917-4 ####[facility] LABCLIA [id number] [place] [address] [place] Eosinophils (Bld) [#/Vol] 0.04 10*3/uL Normal <0.46 [facility] Comment on above: Order Comment: Speci men Type: BLOOD SPECIMENOrdering Facility: [facility] Address: [address] [place] [address] Performed By: #### 5 7021-8 ####[facility] [id number] [place] [address] [place]#### 57856-2 ####[facility] LABCLIA [id number] [address] [place] Eosinophils/100 WBC (Bld) 0.6 % Normal [facility] Comment on above: Order Comment: Speci men Type: BLOOD SPECIMENOrdering Facility: [facility] Address: [address] [place] [address] Performed By: #### 5 7021-8 ####[facility] [place] LABCLIA [id number] [place] [address] [place]#### 58814-8 ####[facility] LABCLIA [id number] [place] [address] [place] Erythrocyte distribution width (RBC) [Ratio] 15.9 % High 11.5-15.0 [facility] Comment on above: Order Comment: Speci men Type: BLOOD SPECIMENOrdering Facility: [facility] Address: [address] [place] [address] Performed By: #### 5 7021-8 ####[facility] LAB[facility] [id number] [place] [address] [place]#### 32895-2 ####[facility] LABCLIA [id number] [place] [address] [place] Hematocrit (Bld) [Volume fraction] 35.0 % Low 39.0-51.0 [facility] Comment on above: Order Comment: Speci men Type: BLOOD SPECIMENOrdering Facility: [facility] Address: [address] [place] [address] Performed By: #### 5 7021-8 ####[facility] [id number] [place] [address] [place]#### 38025-6 ####[facility] LABCLIA [id number] [place] [address] [place] Hemoglobin (Bld) [Mass/Vol] 11.4 g/dL Low 13.0-17.0 [facility] Comment on above: Order Comment: Speci men Type: BLOOD SPECIMENOrdering Facility: [facility] Address: [address] [place] [address] Performed By: #### 5 7021-8 ####[facility] [place] LABCLIA [id number] [place] [address] [place]#### 59288-0 ####[facility] LABCLIA [id number] [place] [address] [place] Immature granulocytes (Bld) [#/Vol] 10*3/uL Normal <0.10 [facility] Comment on above: Order Comment: Speci men Type: BLOOD SPECIMENOrdering Facility: [facility] Address: [address] [place] [address] Performed By: #### 5 7021-8 ####[facility] [place] LABCLIA [id number] [place] [address] [place]#### 67285-5 ####[facility] LABCLIA [id number] [place] [address] [place] Immature granulocytes/100 WBC (Bld) 0.2 % Normal [facility] Comment on above: Order Comment: Speci men Type: BLOOD SPECIMENOrdering Facility: [facility] Address: [address] [place] [address] Performed By: #### 5 7021-8 ####[facility] [place] LABCLIA [id number] [place] [address] [place]#### 12772-9 ####[facility] LABCLIA [id number] [place] [address] [place] Lymphocytes (Bld) [#/Vol] 1.31 10*3/uL Normal 1.00-4.00 [facility] Comment on above: Order Comment: Speci men Type: BLOOD SPECIMENOrdering Facility: [facility] Address: [address] [place] [address] Performed By: #### 5 7021-8 ####[facility] [place] LABCLIA [id number] [place] [address] [place]#### 76033-8 ####[facility] LABCLIA [id number] [place] [address] [place] Lymphocytes/100 WBC (Bld) 21.0 % Normal [facility] Comment on above: Order Comment: Speci men Type: BLOOD SPECIMENOrdering Facility: [facility] Address: [address] [place] [address] Performed By: #### 5 7021-8 ####[facility] LABCLIA [id number] [place] [address] [place]#### 57328-2 ####[facility] LABCLIA [id number] [place] [address] [place] MCH (RBC) [Entitic mass] 35.4 pg High 26.0-34.0 [facility] Comment on above: Order Comment: Speci men Type: BLOOD SPECIMENOrdering Facility: [facility] Address: [address] [place] [address] Performed By: #### 5 7021-8 ####[facility] LABCLIA [id number] [place] [address] [place]#### 45930-5 ####[facility] LABCLIA [id number] [place] [address] [place] MCHC (RBC) [Mass/Vol] 32.6 g/dL Normal 30.5-36.0 [facility] Comment on above: Order Comment: Speci men Type: BLOOD SPECIMENOrdering Facility: [facility] Address: [address] [place] [address] Performed By: #### 5 7021-8 ####[facility] LABCLIA [id number] [address] [place]#### 78767-7 ####[facility] LABCLIA [id number] [address] [place] MCV (RBC) [Entitic vol] 108.7 fL High 80.0-100.0 [facility] Comment on above: Order Comment: Speci men Type: BLOOD SPECIMENOrdering Facility: [facility] Address: [address] [place] [address] Performed By: #### 5 7021-8 ####[facility] LABCLIA [id number] [place] [address] [place]#### 29769-8 ####[facility] LABCLIA [id number] [place] [address] [place] Monocytes (Bld) [#/Vol] 0.57 10*3/uL Normal <0.87 [facility] Comment on above: Order Comment: Speci men Type: BLOOD SPECIMENOrdering Facility: [facility] Address: [address] [place] [address] Performed By: #### 5 7021-8 ####[facility] [place] LABCLIA [id number] [place] [address] [place]#### 27387-1 ####[facility] LABCLIA [id number] [place] [address] [place] Monocytes/100 WBC (Bld) 9.1 % Normal A [facility] Comment on above: Order Comment: Speci men Type: BLOOD SPECIMENOrdering Facility: [facility] Address: [address] [place] [address] Performed By: #### 5 7021-8 ####[facility] [id number] [place] [address] [place]#### 21360-1 ####[facility] LABCLIA [id number] [place] [address] [place] Neutrophils (Bld) [#/Vol] 4.29 10*3/uL Normal 1.45-7.50 [facility] Comment on above: Order Comment: Speci men Type: BLOOD SPECIMENOrdering Facility: [facility] Address: [address] [place] [address] Performed By: #### 5 7021-8 ####[facility] [place] LABCLIA [id number] [place] [address] [place]#### 20914-5 ####[facility] LABCLIA [id number] [place] [address] [place] Neutrophils/100 WBC (Bld) 68.6 % Normal [facility] Comment on above: Order Comment: Speci men Type: BLOOD SPECIMENOrdering Facility: [facility] Address: [address] [place] [address] Performed By: #### 5 7021-8 ####[facility] [place] LABCLIA [id number] [place] [address] [place]#### 42912-8 ####[facility] LABCLIA [id number] [place] [address] [place] Nucleated RBC (Bld) [#/Vol] Normal [facility] Comment on above: Order Comment: Speci men Type: BLOOD SPECIMENOrdering Facility: [facility] Address: [address] [place] [address] Performed By: #### 5 7021-8 ####[facility] [id number] [place] [address] [place]#### 91251-9 ####[facility] LABCLIA [id number] [place] [address] [place] Nucleated RBC/100 WBC (Bld) [Ratio] Normal [facility] Comment on above: Order Comment: Speci men Type: BLOOD SPECIMENOrdering Facility: [facility] Address: [address] [place] [address] Performed By: #### 5 7021-8 ####[facility] LAB[facility] [id number] [place] [address] [place]#### 80635-8 ####[facility] LABCLIA [id number] [place] [address] [place] Platelet mean volume (Bld) [Entitic vol] 10.4 fL Normal 9.0-12.7 [facility] Comment on above: Order Comment: Speci men Type: BLOOD SPECIMENOrdering Facility: [facility] Address: [address] [place] [address] Performed By: #### 5 7021-8 ####[facility] LABCLIA [id number] [place] [address] [place]#### 20620-4 ####[facility] LABCLIA [id number] [place] [address] [place] Platelets (Bld) [#/Vol] 195 10*3/uL Normal 150-400 [facility] Comment on above: Order Comment: Speci men Type: BLOOD SPECIMENOrdering Facility: [facility] Address: [facility] [place] [address] Performed By: #### 5 7021-8 ####[facility] LAB[facility] [id number] [place] [address] [place]#### 70737-6 ####[facility] LABCLIA [id number] [place] [address] [place] RBC (Bld) [#/Vol] 3.22 10*6/uL Low 4.20-6.00 [facility] Comment on above: Order Comment: Speci men Type: BLOOD SPECIMENOrdering Facility: [facility] Address: [facility] [place] [address] Performed By: #### 5 7021-8 ####[facility] [place] LABCLIA [id number] [place] [address] [place] [facility]#### 85720-8 ####[facility] LABCLIA [id number] [place] [address] [place] WBC (Bld) [#/Vol] 6.25 10*3/uL Normal 3.70-11.00 [facility] Comment on above: Order Comment: Speci men Type: BLOOD SPECIMENOrdering Facility: [facility] Address: [address] [place] [address] Performed By: #### 5 7021-8 ####[facility] LABIA [id number] [place] [address] [place]#### 88482-8 ####[facility] LABCLIA [id number] [facility] [id number] [address] [place] CNOVon 08-09-2023 CNOV Office Visit (AGFAMP LE) ANALILIA MELENDREZ ([id number]) 1960 M Date Time Provider Department 08/09/23 1:20 PM MARIANNA WAGNER During your visit today, we recorded the following information about you: Temperature Pulse Blood pressure Weight 99 degrees 98/minute 122/76 63 kg Height 1.803 m Marianna Wagner APRN.HIGH SCHO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 08/13/2023 12:57 PM Signed [facility] Marianna Wagner ALTERATION HAND-[employer]IGH 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 [address] [place] [address] Dept Dept. Visit Date: August 09, 2023 Mr.Steven Melendrez Date of : 1960 MRN/E #: [id number] Chief Complaint: Patient presents with: Establish Care: Previous pt. Of dr. Young at [facility]. Think he may have a seizure or stoke. Went to intermediate for 5 week. (Alexy sh[place] in [place]) Diarrhea: X 2 months. BM is orange [...] awhile). Was supposed to follow with a workers compensation analyst Hx of aortic valve replacement Had a congenital aortic aneurysm Has a pacemaker Has had heart attack He is not following with any specialists right now. States he either had a seizure or stroke and was placed in the hospital and then went to a intermediate for 5 weeks. 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 Started smoking [...] ascending aorta repair Hyperlipidemia Hypertension Non-ST elevation NM (NSTEMI) (HCC) 06/24 NSTEMI (non-ST elevated myocardial infarction) (HCC) [...] Coronary Artery (more content not included)... Normal [facility] Comprehensive metabolic 2000 panelon 08-09-2023 Albumin [Mass/Vol] 2.7 g/dL Low 3.9 - 4.9 g/dL [facility] ALP [Catalytic activity/Vol] 211 U/L High 38 - 113 U/L [facility] ALT With P-5'-P [Catalytic activity/Vol] 53 U/L 10 - 54 U/L [facility] Anion gap [Moles/Vol] 13 mmol/L 8 - 15 mmol/L [facility] AST With P-5'-P [Catalytic activity/Vol] 179 U/L High 14 - 40 U/L [facility] Bilirubin [Mass/Vol] 0.5 mg/dL 0.2 - 1 .3 mg/dL [facility] Calcium [Mass/Vol] 8.3 mg/dL Low 8.5 - 10. 2 mg/dL [facility] Chloride [Moles/Vol] 99 mmol/L 98 - 10 7 mmol/L [facility] CO2 [Moles/Vol] 30 mmol/L 22 - 30 mmol/L [facility] Creatinine [Mass/Vol] 1.36 mg/dL High 0.73 - 1.22 mg/dL [facility] GFR/1.73 sq M.predicted among non-blacks MDRD (S/P/Bld) [Vol rate/Area] 59 mL/min/{1.73_m2} Low - PINF [facility] Comment on above: Estimated Glomerular Filtration Rate [...] 165 mg/dL High 74 - 99 mg/dL [facility] Comment on above: The [place] Diabete s Association (ADA) provides guidance for [...] Standards of Medical Care in Diabetes 2016, [place] Diabetes Association. Diabetes Care. 2016.39(Suppl 1). Potassium [Moles/Vol] 4.7 mmol/L 3.7 - 5.1 mmol/L [facility] Protein [Mass/Vol] 6.6 g/dL 6.3 - 8.0 g/dL [facility] Sodium [Moles/Vol] 142 mmol/L 136 - 144 mmol/L [facility] Urea nitrogen [Mass/Vol] 10 mg/dL 9 - 24 mg/dL [facility] Albumin [Mass/Vol] 2.7 g/dL Low 3.9-4.9 [facility] Comment on above: Order Comment: Speci men Type: BLOOD SPECIMENOrdering Facility: [facility] Address: [address] [place], [place] [address] [address] Performed By: #### 3 016-3, 06267-7, 74146-3, 3040-3 ####[facility] [place] LABCLIA [id number] [facility] [place] [address] [place] ALP [Catalytic activity/Vol] 211 U/L High 38-113 [facility] Comment on above: Order Comment: Speci men Type: BLOOD SPECIMENOrdering Facility: [facility] Address: [address] [place] [address] Performed By: #### 3 016-3, 88585-3, 60526-6, 0-3 ####[facility] [place] LABCLIA [id number] [facility] [place] [address] [place] ALT With P-5'-P [Catalytic activity/Vol] 53 U/L Normal 10-54 [facility] Comment on above: Order Comment: Speci men Type: BLOOD SPECIMENOrdering Facility: [facility] Address: [address] [place] [address] Performed By: #### 3 016-3, 12357-3, 82119-1, 3039-3 ####[facility] [id number] [place] [address] [place] [facility] Anion gap [Moles/Vol] 13 mmol/L Normal 8-15 [facility] Comment on above: Order Comment: Speci men Type: BLOOD SPECIMENOrdering Facility: [facility] Address: [address] [place] [address] Performed By: #### 3 016-3, 14135-9, 18285-4, 0-3 ####[facility] [id number] [facility] [address] [place] AST With P-5'-P [Catalytic activity/Vol] 179 U/L High 14-40 [facility] Comment on above: Order Comment: Speci men Type: BLOOD SPECIMENOrdering Facility: [facility] Address: [address] [place], [place] [address] Performed By: #### 3 016-3, 60221-4, 25876-3, 0-3 ####[facility] [place] LABCLIA [id number] [place] [address] [place] Bilirubin [Mass/Vol] 0.5 mg/dL Normal 0.2-1.3 [facility] Comment on above: Order Comment: Speci men Type: BLOOD SPECIMENOrdering Facility: [facility] Address: [address] [place] [address] Performed By: #### 3 016-3, 89085-2, 66403-8, 3040-3 ####[facility] [place] LABCLIA [id number] [place] [address] [place] Calcium [Mass/Vol] 8.3 mg/dL Low 8.5-10.2 [facility] Comment on above: Order Comment: Speci men Type: BLOOD SPECIMENOrdering Facility: [facility] Address: [address] [place] [address] Performed By: #### 3 016-3, 91452-5, 77605-6, 3040-3 ####[facility] [place] LABCLIA [id number] [place] [address] [place] Chloride [Moles/Vol] 99 mmol/L Normal 98-107 [facility] Comment on above: Order Comment: Speci men Type: BLOOD SPECIMENOrdering Facility: [facility] Address: [address] [place] [address] Performed By: #### 3 016-3, 36415-0, 67641-7, 3040-3 ####[facility] LABCLIA [id number] [place] [address] [place] CO2 [Moles/Vol] 30 mmol/L Normal 22-30 [facility] Comment on above: Order Comment: Speci men Type: BLOOD SPECIMENOrdering Facility: [facility] Address: [address] [place] [address] Performed By: #### 3 016-3, 80650-8, 56054-2, 3040-3 ####[facility] [place] LABCLIA [id number] [place] [address] [place] Creatinine [Mass/Vol] 1.36 mg/dL High 0.73-1.22 [facility] Comment on above: Order Comment: Gini nowak Type: BLOOD SPECIMENOrdering Facility: [facility] Address: [address] [place] [address] Performed By: #### 3 016-3, 14768-4, 89563-5, 3040-3 ####[facility] LABCLIA [id number] [place] [address] [facility] Creatinine and Glomerular filtration rate.predicted panel (S/P/Bld) 59 mL/min/1.73m??? Low >=60 [facility] Comment on above: Order Comment: Gini nowak Type: BLOOD SPECIMENOrdering Facility: [facility] Address: [address] [place] [address] Result Comment: Gurwinder mated Glomerular Filtration Rate [...] actual GFR. Performed By: #### 3 016-3, 73257-4, 50551-9, 3040-3 ####[facility] LABCLIA [id number] [place] [address] [place] [facility] Glucose [Mass/Vol] 165 mg/dL High 74-99 [facility] Comment on above: Order Comment: Gini nowak Type: BLOOD SPECIMENOrdering Facility: [facility] Address: [address] [place] [address] Result Comment: The [place] Diabetes Association (ADA) provides guidance for cutoff [...] Standards of Medical Care in Diabetes 2016, [place] Diabetes Association. Diabetes Care. 2016.39(Suppl 1). Performed By: #### 3 016-3, 06428-5, 64003-4, 0-3 ####[facility] LABCLIA [id number] [place] [address] [place] Potassium [Moles/Vol] 4.7 mmol/L Normal 3.7-5.1 [facility] Comment on above: Order Comment: Speci men Type: BLOOD SPECIMENOrdering Facility: [facility] Address: [address] [place] [address] Performed By: #### 3 016-3, 21430-7, 18263-4, 0-3 ####[facility] LABCLIA [id number] [place] [address] [place] Protein [Mass/Vol] 6.6 g/dL Normal 6.3-8.0 [facility] Comment on above: Order Comment: Speci men Type: BLOOD SPECIMENOrdering Facility: [facility] Address: [address] [place] [address] Performed By: #### 3 016-3, 09721-9, 75111-0, 0-3 ####[facility] LABCLIA [id number] [place] [address] [place] Sodium [Moles/Vol] 142 mmol/L Normal 136-144 [facility] Comment on above: Order Comment: Speci men Type: BLOOD SPECIMENOrdering Facility: [facility] Address: [address] [place] [address] Performed By: #### 3 016-3, 56963-0, 64573-4, 3040-3 ####[facility] LABCLIA [id number] [place] [address] [place] Urea nitrogen [Mass/Vol] 10 mg/dL Normal 9-24 [facility] Comment on above: Order Comment: Speci men Type: BLOOD SPECIMENOrdering Facility: [facility] Address: [address] [place] [address] Performed By: #### 3 016-3, 54327-9, 60650-3, 3040-3 ####[facility] LABCLIA [id number] [place] [address] [place] Ferritin SerPl-mCncon 2023 Ferritin [Mass/Vol] 561.0 ng/mL Normal 30.3-565.7 [facility] Comment on above: Order Comment: Spec men Type: BLOOD SPECIMENOrdering Facility: [facility] Address: [address] [place] [address] Performed By: #### 2 276-4, 91640-9, PSAS1 ####[facility] LABORATORYCLIA [id number] [address] [facility] Folate SerPl-mCncon 08-09-19 Folate [Mass/Vol] 19.5 ng/mL Normal >4.7 [facility] Comment on above: Order Comment: Speci [facility] Type: BLOOD SPECIMENOrdering Facility: [facility] Address: [address] [place] [address] Performed By: #### 2 2314-9, 5195-3, 4-8, 22710-5 ####[facility] LABORATORYCLIA [id number] [address] [facility] HAV IgM Ser Qlon 08-09-2023 HAV IgM Ql (S) Non-Reactive Normal Nonreactive [facility] Comment on above: Order Comment: Speci [facility] Type: BLOOD SPECIMENOrdering Facility: [facility] Address: [address] [place] [address] Result Comment: No e vidence of recent infection with Hepatitis A virus. Performed By: #### 2 2314-9, 5195-3, 4-8, 83941-3 ####[facility] LABORATORYCLIA [id number] [address] [place] HBV core IgM Ser Qlon 2023 HBV core IgM Ql (S) Non-Reactive Normal Nonreactive [facility] Comment on above: Order Comment: Speci men Type: BLOOD SPECIMENOrdering Facility: [facility] Address: [address] [place] [address] Result Comment: No e vidence of recent infection with Hepatitis B virus. Should recent infection be suspected, repeat testing may be considered 3-4 weeks after this draw. Performed By: #### 2 2314-9, 5195-3, 2284-8, 58722-7 ####[facility] LABORATORYCLIA [id number] [address] [place] HBV surface Ag Ser Qlon HBV surface Ag Ql (S) Non-Reactive Normal Nonreactive [facility] Comment on above: Order Comment: Speci men Type: BLOOD SPECIMENOrdering Facility: [facility] Address: [address] [place] [address] Performed By: #### 2 2314-9, 5195-3, 2284-8, 70415-9 ####[facility]ENTERCLIA [id number] [place] [address] [place] HCV Ab Ser Qlon 08-09-2023 HCV Ab Ql (S) Non-Reactive Normal Nonreactive [facility] Comment on above: Order Comment: Speci men Type: BLOOD SPECIMENOrdering Facility: [facility] Address: [address] [place] [address] Result Comment: The result suggests no evidence of active infection with Hepatitis C virus. Should recent infection be suspected, repeat testing may be considered 4-6 weeks after this draw. Performed By: #### 1 6128-1 ####[facility] LABORATORYCLIA [id number] [address] [place] HIV 1+2 Ab IA Ql HIV 1 and 2 Ab IA.rapid Nom (S/P/Bld) Normal [facility] Comment on above: Order Comment: Speci men Type: BLOOD SPECIMENOrdering Facility: [facility] Address: [address], [place] [address] Result Comment: Test not indicated. Performed By: #### 3 1201-7, 2131-10 ####[facility] LABORATORYCLIA [id number] [place], [place] [id number] [address] [place] HIV 1+2 Ab+HIV1 p24 Ag IA Ql Non-Reactive Normal Nonreactive [facility] Comment on above: Order Comment: Speci men Type: BLOOD SPECIMENOrdering Facility: [facility] Address: [address] [place] [address] Result Comment: [place] Rev. Code 3701.243(E): This information has been [...] for this assay has moved from [employer] RageTankaur XP to [employer] 8000 effective November 11, 2021. Please note there may be a change in the reporting units and/or reference range. Performed By: #### 3 1201-7, 2131-10 ####[facility] LABORATORYCLIA [id number] [place], [place] [address] [place] [address] HIV immunoassay testing algorithm interpretation (S/P/Bld) [Interp] Normal [facility] Comment on above: Order Comment: Speci men Type: BLOOD SPECIMENOrdering Facility: [facility] Address: [address] [place] [address] Result Comment: No e vidence of HIV-1 or HIV-2 infection. Should recent infection be suspected, repeat testing may be considered 2-3 weeks after this draw. Performed By: #### 3 1201-7, 2131-10 ####[facility] LABORATORYCLIA [id number] [place] [address] [place] HbA1c (Bld)on 08-09-2023 Average glucose Estimated from glycated hemoglobin (Bld) [Mass/Vol] 148 mg/dL Normal [facility] Comment on above: Order Comment: Speci men Type: BLOOD SPECIMENOrdering Facility: [facility] Address: [facility] [place] [address] Result Comment: eAG: (Estimated average glucose) is a calculated value from HgbA1c and is clearance representative of the average blood glucose level in the last 2-3 month period. Performed By: #### 5 7021-8 ####[facility] LABCLIA [id number] [address] [place]#### [address]-5 ####[facility] LABCLIA [id number] [address] [place] HbA1c (Bld) [Mass fraction] 6.8 % High 4.3-5.6 [facility] Comment on above: Order Comment: Speci men Type: BLOOD SPECIMENOrdering Facility: [facility] Address: [address] [place] [address] Result Comment: Amer ican Diabetes Association guidelines indicate that patients with HgbA1c in the range 5.7-6.4% are at increased risk for development of diabetes, and intervention by lifestyle modification may be beneficial. HgbA1c greater or equal to 6.5% is considered diagnostic of diabetes. Performed By: #### 5 7021-8 ####[facility] LABCLIA [id number] [address]#### [address]-6 ####[facility] LABCLIA [id number] [address] [place] Iron and Iron binding capaci ty panelon 08-09-2023 Iron [Mass/Vol] 108 ug/dL Normal 41-186 [facility] Comment on above: Order Comment: Speci men Type: BLOOD SPECIMENOrdering Facility: [facility] Address: [address] [place] [address] Performed By: #### 2 276-4, 37499-1, PSAS1 ####[facility] LABORATORYCLIA [id number] [address] [place] Iron binding capacity [Mass/Vol] <125 Low 232-386 [facility] Comment on above: Order Comment: Speci men Type: BLOOD SPECIMENOrdering Facility: [facility] Address: [address] [place] [address] Performed By: #### 2 276-4, 76110-6, PSAS1 ####[facility] LABORATORYCLIA [id number] [place] [address] [facility] Iron saturation [Mass fraction] >86.4 High 15.0-57.0 [facility] Comment on above: Order Comment: Speci men Type: BLOOD SPECIMENOrdering Facility: [facility] Address: [address] [place] [address] Performed By: #### 2 276-4, 18027-8, PSAS1 ####[facility] LABORATORYCLIA [id number] [place] [id number] [place] LIPASEon 08-09-2023 Lipase [Catalytic activity/Vol] 4 U/L Low 16 - 61 U/L [facility] Lipase SerPl-cCncon 08-09-19 24 Lipase [Catalytic activity/Vol] 4 U/L Low 16-61 [facility] Comment on above: Order Comment: Speci men Type: BLOOD SPECIMENOrdering Facility: [facility] Address: [address] [place] [address] Performed By: #### 3 016-3, 84183-7, 36898-3, 3040-3 ####[facility] LABCLIA [id number] [place] [address] [place] Lipid 1996 panelon 4 Cholesterol [Mass/Vol] 104 mg/dL NINF - 200 mg/dL [facility] Comment on above: <200 mg/dL, Desirabl e 200-239 mg/dL, Borderline high >239 mg/dL, High Cholesterol in HDL [Mass/Vol] 30 mg/dL Low 39 - PINF mg/dL [facility] Comment on above: 40-59 mg/dL, Accepta ble >59 mg/dL, High: Negative risk factor for coronary heart disease <40 mg/dL, Low: Positive risk factor for coronary heart disease Cholesterol in LDL [Mass/Vol] 32 mg/dL NINF - 100 mg/dL [facility] Comment on above: <100 mg/dL, Optimal 100-129 mg/dL, Near optimal/above optimal 130-159 mg/dL, Borderline high 160-189 mg/dL, High >189 mg/dL, Very high Secondary prevention optimal LDL Cholesterol levels are recommended to be < 70 mg/dL Cholesterol in LDL/Cholesterol in HDL [Mass ratio] 1.07 {ratio} NINF - 2.54 [facility] Comment on above: Reference: 1. National Cholesterol Education Program ATP III Guideline At-A-Glance Quick Desk Reference: National Heart, Lung, and Blood [place]. National Institutes of Health. 2001: NIH Publication No. 01-3305. 2. An International Atherosclerosis Society position paper: global recommendations for the management of dyslipidemia: executive summary, Atherosclerosis. 2014: 232(2):410-413. Cholesterol in VLDL [Mass/Vol] 42 mg/dL High NINF - 30 mg/dL [facility] Cholesterol non HDL [Mass/Vol] 74 mg/dL NINF - 130 mg/dL [facility] Comment on above: <130 mg/dL, Optimal 130-159 mg/dL, Near optimal/above optimal 160-189 mg/dL, Borderline high 190-219 mg/dL, High >219 mg/dL, Very high Secondary prevention optimal non HDL Cholesterol levels are recommended to be <100 mg/dL Cholesterol.total/Livia sterol in HDL [Mass ratio] 3.47 {ratio} NINF - 5.10 [facility] Fasting Time 12 hrs [facility] Triglyceride [Mass/Vol] 211 mg/dL High NINF - 150 mg/dL [facility] Comment on above: <150 mg/dL, Normal 150-199 mg/dL, Borderline high 200-499 mg/dL, High >499 mg/dL, Very high Cholesterol [Mass/Vol] 104 mg/dL Normal <200 [facility] Comment on above: Order Comment: Speci men Type: BLOOD SPECIMENOrdering Facility: [facility] Address: [address] [place] [address] Result Comment: <200 mg/dL, Desirable 200-239 mg/dL, Borderline high >239 mg/dL, High Performed By: #### 3 016-3, 05068-7, 16597-0, 3040-3 ####[facility] LABCLIA [id number] [place] [address] [facility] Cholesterol in HDL [Mass/Vol] 30 mg/dL Low >39 [facility] Comment on above: Order Comment: Corbyi men Type: BLOOD SPECIMENOrdering Facility: [facility] Address: [address] [place] [address] Result Comment: 40-5 9 mg/dL, Acceptable >59 mg/dL, High: Negative risk factor for coronary heart disease <40 mg/dL, Low: Positive risk factor for coronary heart disease Performed By: #### 3 016-3, 14992-6, 60511-5, 3040-3 ####[facility] LABCLIA [id number] [place] [address] [facility] Cholesterol in LDL [Mass/Vol] 32 mg/dL Normal <100 [facility] Comment on above: Order Comment: Speci eliu Type: BLOOD SPECIMENOrdering Facility: [facility] Address: [address] [place] [address] Result Comment: <100 mg/dL, Optimal 100-129 mg/dL, Near optimal/above optimal 130-159 mg/dL, Borderline high 160-189 mg/dL, High >189 mg/dL, Very high Secondary prevention optimal LDL Cholesterol levels are recommended to be < 70 mg/dL Performed By: #### 3 016-3, 76138-8, 35064-9, 3040-3 ####[facility] [employer] LABCLIA [id number] [place] [address] [facility] Cholesterol in LDL/Cholesterol in HDL [Mass ratio] 1.07 {ratio} Normal <2.54 [facility] Comment on above: Order Comment: Gini nowak Type: BLOOD SPECIMENOrdering Facility: [facility] Address: [address] [place] [address] Result Comment: Refgiancarlo murillo: 1. National Cholesterol Education Program ATP III Guideline At-A-Glance Quick Desk Reference: National Heart, Lung, and Blood [place] National Institutes of Health. 2001: NIH Publication No. 01-3305. 2. An International Atherosclerosis Society position paper: global recommendations for the management of dyslipidemia: executive summary, Atherosclerosis. 2014: 232(2):410-413. Performed By: #### 3 016-3, 20248-4, 69518-6, 3040-3 ####[facility] LABCLIA [id number] [place] [address] [place] Cholesterol in VLDL [Mass/Vol] 42 mg/dL High <30 [facility] Comment on above: Order Comment: Speci men Type: BLOOD SPECIMENOrdering Facility: [facility] Address: [address] [place] [address] Performed By: #### 3 016-3, 12360-2, 24301-2, 3040-3 ####[facility] LABCLIA [id number] [place] [address] [place] [facility] Cholesterol non HDL [Mass/Vol] 74 mg/dL Normal <130 [facility] Comment on above: Order Comment: Speci men Type: BLOOD SPECIMENOrdering Facility: [facility] Address: [address] [place] [address] Result Comment: <130 mg/dL, Optimal 130-159 mg/dL, Near optimal/above optimal 160-189 mg/dL, Borderline high 190-219 mg/dL, High >219 mg/dL, Very high Secondary prevention optimal non HDL Cholesterol levels are recommended to be <100 mg/dL Performed By: #### 3 016-3, 13866-3, 84690-1, 3040-3 ####[facility] LABCLIA [id number] [place] [address] [place] Cholesterol.total/Livia sterol in HDL [Mass ratio] 3.47 {ratio} Normal <5.10 [facility] Comment on above: Order Comment: Speci men Type: BLOOD SPECIMENOrdering Facility: [facility] Address: [address] [place] [address] Performed By: #### 3 016-3, 98696-2, 09616-1, 3040-3 ####[facility] LABCLIA [id number] [place] [address] [facility] [place] FASTING TIME 12 hrs Normal [facility] Comment on above: Order Comment: Speci men Type: BLOOD SPECIMENOrdering Facility: [facility] Address: [address] [place] [address] Performed By: #### 3 016-3, 28079-2, 87244-5, 3040-3 ####[facility] LABCLIA [id number] [place] [address] [facility] Triglyceride [Mass/Vol] 211 mg/dL High <150 [facility] Comment on above: Order Comment: Speci men Type: BLOOD SPECIMENOrdering Facility: [facility] Address: [address] [place] [address] Result Comment: <150 mg/dL, Normal 150-199 mg/dL, Borderline high 200-499 mg/dL, High >499 mg/dL, Very high Performed By: #### 3 016-3, 98858-8, 62014-8, 3040-3 ####[facility] LABCLIA [id number] [place] [address] [facility] No Panel Informationon 08-08 Interpretation and review of laboratory results Abnormal [facility] PSA/PROSTATE SPECIFIC ANTIGE N SCREENINGon 08-09-2023 Prostate specific Ag [Mass/Vol] 0.78 ng/mL Normal <2.60 [facility] Comment on above: Order Comment: Speci men Type: BLOOD SPECIMENOrdering Facility: [facility] Address: [address] [place] [address] Result Comment: Tota l PSA test methodology used is the Electrochemiluminescence Immunoassay by [employer]. Total PSA values by differing methodologies cannot be interchanged. Performed By: #### 2 276-4, 42280-9, PSAS1 ####[facility] LABORATORYCLIA [id number] [place] [id number] [place] THYROID STIMULATING HORMONEo n 08-09-2023 TSH Qn 1.170 m[IU]/L [facility] TSH Qnon 08-09-2023 Interpretation and review of laboratory results Normal [facility] TSH SerPl-aCncon 08-09-2023 TSH Qn 1.170 m[IU]/L Normal 0.270-4.200 [facility] Comment on above: Order Comment: Speci men Type: BLOOD SPECIMENOrdering Facility: [facility] Address: [address] [place] [address] [place] [address] Performed By: #### 3 016-3, 78131-9, 53782-6, 3040-3 ####[facility] LABCLIA [id number] [place] [address] [place] UA DIP, URINE (POC)on 2023 BILIRUBIN UA (POCT) Negative Negative [facility] CLARITY UA (POCT) Cloudy [facility] COLOR UA (POCT) Other [facility] GLUCOSE UA (POCT) 500 mg/dL Abnormal Negative [facility] Hemoglobin Ql (U) Trace-intact Abnormal Negative [facility] Interpretation and review of laboratory results Abnormal [facility] KETONE UA (POCT) Negative Negative mg/dL [facility] LEUKOCYTES UA (POCT) Small [facility]normal [facility] NITRITE UA (POCT) Negative Negative [facility] PH UA (POCT) >=9.0 Abnormal 4.5 - 8.0 [facility] Protein Ql (U) 30 mg/dL Abnormal Negative [facility] SPECIFIC GRAVITY UA (POCT) 1.015 1.005 - 1.030 [facility] UROBILINOGEN UA (POCT) 0.2 Orin l E.U./dL [facility] Location:[facility], [address] [place] [address], [address] [facility] POINT OF CARE [facility] Vit B12 [facility] 024 Cobalamin (Vitamin B12) [Mass/Vol] 1523 pg/mL High 232-1245 [facility] Comment on above: Order Comment: Speci men Type: BLOOD SPECIMENOrdering Facility: [facility] Address: [facility] [place] [address] Performed By: #### 3 1201-7, 2132-9 ####[facility] LABORATORYCLIA [id number] [place] [address] [place] Absolute lymphocyte countOrd ered By: Refugio Rojas on 05-20-2023 Lymphocytes Auto (Unsp spec) [#/Vol] 1.20 10*3/uL 0.83-4.51 [facility] Automated lymphocyte count a s percentage of total leukocytesOrdered By: Refugio Rojas on 05-20-2023 Lymphocytes/100 WBC Auto (Unsp spec) 9.8 % 19-41 [facility] Basophil percentageOrdered B y: Refugio Rojas on 05-20-2023 Basophil percentage 8.5 g/dL 13.0-16.5 [facility] Basophils (Bld) [#/Vol] 12.2 10*3/uL 4.4-11.0 [facility] Basophils (Bld) [#/Vol] 10.1 10*3/uL 2.0-7.7 [facility] Basophils/100 WBC (Bld) 82.4 % 47-[address] [facility] Basophils/100 WBC (Bld) 5.6 % 0-[address] [facility] Basophils/100 WBC (Bld) 0.7 % 0-[address] [facility] Basophil percentageOrdered B y: Estefany Donnelly on 05-20-2023 Basophil percentage 145 mg/dL 74-106 [facility] Basophil percentage 3.1 mg/dL 2.5-4.9 [facility] Basophil percentage 139 mmol/L 136-145 [facility] Basophil percentage 4.7 mmol/L 3.5-5.1 [facility] Basophil percentage 109 mmol/L 98-107 [facility] Blood manual differential co mment interpretation (narrative result)Ordered By: Refugio Rojas on 05-20-2023 Manual differential comment Jose Carlos (Bld) [Interp] SCANNED [facility] Determination of erythrocyte mean corpuscular volume (MCV)Ordered By: Refugio Rojas on 05-20-2023 MCV (RBC) [Entitic vol] 101.9 fL 80-[address] [facility] Erythrocyte distribution wid th ratioOrdered By: Refugio Rojas on 05-20-2023 Erythrocyte distribution width (RBC) [Ratio] 18.5 % 11.6-14.6 [facility] Erythrocyte distribution wid th standard deviationOrdered By: Refugio Rojas on 05-20-2023 Erythrocyte distribution width (RBC) [Entitic vol] 68.9 fL 35.1-43.9 [facility] Hematocrit Auto (Bld) [Volum e fraction]Ordered By: Refugio Rojas on 05-20-2023 Hematocrit (Bld) [Volume fraction] 26.4 % 40-54 [facility] Immature granulocytes/100 WB C Auto (Bld)Ordered By: Refugio Rojas on 05-20-2023 Immature granulocytes/100 WBC (Bld) 0.800 % 0.0-0.9 [facility] No Panel InformationOrdered By: Refugio Rojas on 05-20-2023 32.8 pg 27.0-32.0 [facility] 32.2 g/dL 32-36 [facility] 264 K/mm3 150-450 [facility] 11.9 fl 6.2-12.0 [facility] 0 % 0-5 [facility] 1+ [facility] No Panel InformationOrdered By: Estefany Donnelly on 05-20-2023 35 mL/min >60 [facility] 42 mL/min >60 [facility] 40.22 ml/min [facility] 9.1 RATIO 10-20 [facility] 28.0 mmol/L 21.0-32.0 [facility] RBC Auto (Bld) [#/Vol]Ordere d By: Refugio Rojas on 05-20-2023 RBC (Bld) [#/Vol] 2.59 10*6/uL 4.6-6.2 [facility] Serum or plasma calcium luciana urement (mass/volume)Ordered By: Estefany Donnelly on 05-20-2023 Calcium [Mass/Vol] 7.8 mg/dL 8.5-10.1 [facility] Serum or plasma creatinine m easurement (mass/volume)Ordered By: Estefany Donnelly on 05-20-2023 Creatinine [Mass/Vol] 2.08 mg/dL 0.70-1.30 [facility] Serum or plasma urea nitroge n measurement (mass/volume)Ordered By: Estefany Donnelly on 05-20-2023 Urea nitrogen [Mass/Vol] 19 mg/dL 7-18 [facility] Thin prep Papanicolaou smear with manual screeningOrdered By: Refugio Rojas on 05-20-2023 Thin prep Papanicolaou smear with manual screening 265 mg/dL 74-106 [facility] Thin prep Papanicolaou smear with manual screeningOrdered By: Estefany Donnelly on 05-20-2023 Thin prep Papanicolaou smear with manual screening 1.4 g/dL 3.2-5.0 [facility] Thin prep Papanicolaou smear with manual screeningOrdered By: Refugio Rojas on 05-19-2023 Thin prep Papanicolaou smear with manual screening 2 5-15 [facility] Iron measurement (mass/mass) Ordered By: Conrado Morel on 05-17-2023 Iron (Unsp spec) [Mass/Mass] 28 ug/dL 65-175 [facility] No Panel InformationOrdered By: Conrado Morel on 05-17-2023 > 2000 pg/mL 211-911 [facility] 45 ug/dL 250-450 [facility] 419 ng/mL 26-388 [facility] Serum or plasma iron saturat ion measurement (mass fraction)Ordered By: Conrado Morel on 05-17-2023 Iron saturation [Mass fraction] 62.2 % 15.0-55.0 [facility] Basophil percentageOrdered B y: Conrado Morel on 05-16-2023 Basophil percentage 4.6 g/dL 6.4-8.2 [facility] Basophil percentage 0.40 mg/dL 0.20-1.00 [facility] Lower GI hemoglobin IA Ql (S tl)Ordered By: Conrado Morel on 05-16-2023 Stool gastrointestinal hemoglobin detection by immunologic method Positive [facility] No Panel InformationOrdered By: Conrado Morel on 05-16-2023 3.6 g/dL 2.2-4.2 [facility] 0.3 RATIO 0.9-2.4 [facility] 152 U/L 45-117 [facility] 25 U/L 16-61 [facility] 2.2 mg/dL 1.6-2.6 [facility] Thin prep Papanicolaou smear with manual screeningOrdered By: Conrado Morel on 05-16-2023 Thin prep Papanicolaou smear with manual screening 41 U/L 15-37 [facility] Blood platelet adequacy dete ction by light microscopyOrdered By: Conrado Morel on 05-14-2023 Platelets LM Ql (Bld) MKD DEC ADEQ [facility] No Panel InformationOrdered By: Conrado Morel on 05-14-2023 RARE [facility] Review by pathologistOrdered By: Conrado Morel on 05-14-2023 Pathologist review Jose Carlos (Unsp spec) [Interp] Reviewed [facility] Assessment of wrist artery p atency prior to arterial punctureOrdered By: Conrado Morel on 05-12-2023 Arterial patency Wrist artery --pre arterial puncture Positive [facility] Base excessOrdered By: Conrado Morel on 05-12-2023 Base excess Calc (BldV) [Moles/Vol] 6 mmol/L -2-2 [facility] Basophil percentageOrdered B y: Iman Aguayo on 05-12-2023 Basophil percentage 27.0 umol/L 11-32 [facility] Basophil percentageOrdered B y: Conrado Morel on 05-12-2023 Basophil percentage 32 mmol/L [facility] Basophils/100 WBC (Bld) 98 % 95-[address] [facility] Hemoglobin in reticulocytes (mass per reticulocyte)Ordered By: Conrado Morel on 05-12-2023 Hemoglobin (Reticulocytes) [Entitic mass] 31.7 pg 30-35 [facility] Immature platelet fractionOr dered By: Conrado Morel on 05-12-2023 Platelets reticulated/100 platelets Auto (Bld) 10.0 % 1.0-7.9 [facility] Measurement, pHOrdered By: Viola Morel on 05-12-2023 pH (Unsp spec) 7.42 [pH] 7.35-7.45 [facility] No Panel InformationOrdered By: Conrado Morel on 05-12-2023 8.50 % 3.00-15.90 [facility] ART [facility] R Radial [facility] NIV [facility] BiPAP [facility] 30.0 [facility] 16/8 14 30% [facility] 47.3 mmHg 35-45 [facility] 112 mmHG 75-100 [facility] 30.7 mmol/L 22-26 [facility] Reticulocytes Auto (Bld) [#/ Vol]Ordered By: Conrado Moerl on 05-12-2023 Reticulocytes/100 RBC (Bld) 1.44 % 0.5-1.5 [facility] Bacteria identified Cx Nom ( U)Ordered By: Conrado Morel on 05-10-2023 Culture, urine Escherichia coli [facility] Basophil percentageOrdered B y: Conrado Morel on 05-10-2023 Basophil percentage 3.0 mmol/L 0.4-2.0 [facility] No Panel InformationOrdered By: Barry Sheehan on 05-10-2023 Negative Negative [facility] No Panel InformationOrdered By: Conrado Morel on 05-10-2023 No growth in 5 days. [facility] Serum or plasma thyroid stim ulating hormone (TSH) measurement (units/volume)Ordered By: Conrado Fraser on 05-10-2023 TSH Qn 0.89 uIU/mL 0.358-3.74 [facility] Absolute lymphocyte countOrd ered By: Jacky Arevalo on 05-09-2023 Lymphocytes Auto (Unsp spec) [#/Vol] 0.35 10*3/uL 0.83-4.51 [facility] Automated lymphocyte count a s percentage of total leukocytesOrdered By: Jacky Arevalo on 05-09-2023 Lymphocytes/100 WBC Auto (Unsp spec) 2.7 % 19-41 [facility] Basophil percentageOrdered B y: Jacky Arevalo on 05-09-2023 Basophil percentage 50-100 SEEN /hpf 0-5 [facility] Basophils/100 WBC (Bld) 0.5 % 0-[address] [facility] Bilirubin [Mass/Vol] 1.00 mg/dL 0.20-1.00 [facility] Comment on above: For patients on eltr ombopag therapy, use of Dimension [place] TBIL is not recommended. Chloride [Moles/Vol] 92 mmol/L 98-107 [facility] Eosinophils/100 WBC (Bld) 0.0 % 0-5 [facility] Glucose [Mass/Vol] 209 mg/dL 74-106 [facility] Comment on above: Glucose result great er than or equal to 200 mg/dLsuggests DIABETES MELLITUS per A.D.A. criteria. Hemoglobin (Bld) [Mass/Vol] 11.2 g/dL 13.0-16.5 [facility] Monocytes/100 WBC (Bld) 3.2 % 0-[address] [facility] Neutrophils (Bld) [#/Vol] 12.0 10*3/uL 2.0-7.7 [facility] Neutrophils/100 WBC (Bld) 92.8 % 47-70 [facility] Potassium [Moles/Vol] 4.0 mmol/L 3.5-5.1 [facility] Comment on above: Slight Hemolysis, Re sult may be falsely increased. Protein [Mass/Vol] 5.4 g/dL 6.4-8.2 [facility] Sodium [Moles/Vol] 137 mmol/L 136-145 [facility] WBC (Bld) [#/Vol] 13.0 10*3/uL 4.4-11.0 [facility] Bilirubin Test strip Ql (U)O rdered By: Jacky Arevalo on 05-09-2023 Bilirubin Ql (U) Negative Negative [facility] Blood platelet adequacy dete ction by light microscopyOrdered By: Jacky Arevalo on 05-09-2023 Platelets LM Ql (Bld) ADEQUATE ADEQ [facility] Determination of erythrocyte mean corpuscular volume (MCV)Ordered By: Jacky Arevalo on 05-09-2023 MCV (RBC) [Entitic vol] 104.0 fL 80-[address] [facility] Direct bilirubinOrdered By: Jacky Arevalo on 05-09-2023 Bilirubin.direct [Mass/Vol] 0.48 mg/dL 0.00-0.30 [facility] Erythrocyte distribution wid th ratioOrdered By: Jacky Arevalo on 05-09-2023 Erythrocyte distribution width (RBC) [Ratio] 15.7 % 11.6-14.6 [facility] Erythrocyte distribution wid th standard deviationOrdered By: Jacky Arevalo on 05-09-2023 Erythrocyte distribution width (RBC) [Entitic vol] 59.7 fL 35.1-43.9 [facility] Hematocrit Auto (Bld) [Volum e fraction]Ordered By: Jacky Arevalo on 05-09-2023 Hematocrit (Bld) [Volume fraction] 33.8 % 40-54 [facility] Immature granulocytes/100 WB C Auto (Bld)Ordered By: Jacky Arevalo on 05-09-2023 Immature granulocytes/100 WBC (Bld) 0.800 % 0.0-0.9 [facility] Comment on above: IG% - Immature Granu locytes (promyelocytes, myelocytes and metamyelocytes) > 1% indicates that a LEFT SHIFT is Present. Ketones Test strip Ql (U)Ord ered By: Jacky Arevalo on 05-09-2023 Ketones Ql (U) Negative Negative [facility] Laboratory - Chemistry and C hemistry - challengeOrdered By: Jacky Arevalo on 05-09-2023 ALP [Catalytic activity/Vol] 212 U/L 45-117 [facility] ALT [Catalytic activity/Vol] 56 U/L 16-61 [facility] CO2 [Moles/Vol] 36.0 mmol/L 21.0-32.0 [facility] Globulin (S) [Mass/Vol] 3.9 g/dL 2.2-4.[address] [facility] Lipase [Catalytic activity/Vol] U/L 13-75 [facility] Comment on above: Please note:LIPASE r evised reference range effective 22. New Lipase methodology. Expected to produce lower values than the previous assay method. NEW Reference Range: 13 - 75 U/L Urea nitrogen/Creatinine [Mass ratio] 6.0 mg/mg 10-20 [facility] Laboratory - CoagulationOrde red By: Jacky Arevalo on 05-09-2023 INR Coag (Bld) [Relative time] 2.0 {INR} [facility] PT Coag (PPP) [Time] 22.6 s 11.7-14.9 [facility] Laboratory - Hematology and Cell countsOrdered By: Jacky Arevalo on 05-09-2023 MCH (RBC) [Entitic mass] 34.5 pg 27.0-32.0 [facility] MCHC (RBC) [Mass/Vol] 33.1 g/dL 32-36 [facility] Nucleated RBC/100 WBC (Bld) [Ratio] 0 % 0-5 [facility] Platelet mean volume (Bld) [Entitic vol] 12.3 fL 6.2-12.0 [facility] Platelets (Bld) [#/Vol] 133 10*3/uL 150-450 [facility] Macrocytes detectionOrdered By: Jacky Arevalo on 05-09-2023 Macrocytes Ql (Bld) 1+ [facility] Mucus LM Ql (Urine sed)Order ed By: Jacky Arevalo on 05-09-2023 Mucus Ql (Urine sed) 0 SEEN /hpf [facility] Nitrite Test strip Ql (U)Ord ered By: Jacky Arevalo on 05-09-2023 Nitrite Ql (U) Negative Negative [facility] No Panel InformationOrdered By: Jacky Arevalo on 05-09-2023 Urine RBC 0-5 SEEN /hpf 0-5 [facility] 0-5 SEEN /hpf 0-5 [facility] 22.6 SECONDS 11.7-14.9 [facility] 2.0 [facility] Estimated Creatinine Clearance Calc 55.78 ml/min [facility] Estimated GFR (MDRD) Amer 61 mL/min >60 [facility] Comment on above: GFR Calc Estimated GFR (MDRD) Non-Af Amer 51 mL/min >60 [facility] Comment on above: Non- GFR Calc < 10 U/L 13-75 [facility] No Panel InformationOrdered By: Conrado Fraser on 05-09-2023 [facility] Negative < 50 ng/mL [facility] Positive < 300 ng/mL [facility] Protein Test strip Ql (U)Ord ered By: Jacky Arevalo on 05-09-2023 Protein Ql (U) 100 mg/dl Negative [facility] RBC Auto (Bld) [#/Vol]Ordere d By: Jacky Arevalo on 05-09-2023 RBC (Bld) [#/Vol] 3.25 10*6/uL 4.6-6.2 [facility] Serum or plasma calcium luciana urement (mass/volume)Ordered By: Jacky Arevalo on 05-09-2023 Calcium [Mass/Vol] 8.0 mg/dL 8.5-10.1 [facility] Serum or plasma creatinine m easurement (mass/volume)Ordered By: Jacky Arevalo on 05-09-2023 Creatinine [Mass/Vol] 1.50 mg/dL 0.70-1.30 [facility] Comment on above: The validity of the calculated GFR & GFRAA in patients over 70 years has not been determined. Clinical correlation is essential. Serum or plasma transthyreti n measurement (mass/volume)Ordered By: Conrado Fraser on 05-09-2023 Prealbumin [Mass/Vol] 8.0 mg/dL 20.0-40.0 [facility] Serum or plasma urea nitroge n measurement (mass/volume)Ordered By: Jacky Arevalo on 05-09-2023 Urea nitrogen [Mass/Vol] 9 mg/dL 7-18 [facility] Squamous epithelial cells de tection in urine sediment by light microscopyOrdered By: Jacky Arevalo on 05-09-2023 Epithelial cells.squamous LM Ql (Urine sed) 0 SEEN /hpf 0-5 [facility] Thin prep Papanicolaou smear with manual screeningOrdered By: Jacky Arevalo on 05-09-2023 Thin prep Papanicolaou smear with manual screening 1.5 g/dL 3.2-5.0 [facility] Thin prep Papanicolaou smear with manual screening 220 U/L 15-37 [facility] Comment on above: Slight Hemolysis, Re sult may be falsely increased. Thin prep Papanicolaou smear with manual screening 9 5-15 [facility] Urine blood detectionOrdered By: Jacky Arevalo on 05-09-2023 RBC Ql (U) 250 /ul Negative [facility] Urine clarityOrdered By: Lala Arevalo on 05-09-2023 Clarity (U) Sl. Cloudy Clear [facility] Urine color determinationOrd ered By: Jacky Arevalo on 05-09-2023 Color (U) Yellow Yellow [facility] Urine glucose detectionOrder ed By: Jacky Arevalo on 05-09-2023 Glucose Ql (U) Normal mg/dl Normal [facility] Urine leukocyte esterase det ection by dipstickOrdered By: Jacky Arevalo on 05-09-2023 Leukocyte esterase Test strip Ql (U) 500 /ul Negative [facility] Urine pHOrdered By: Jacky hay on 05-09-2023 pH (U) 8.0 [pH] 5.0 - 8.0 [facility] Urine phencyclidine (PCP) de tectionOrdered By: Conrado Fraser on 05-09-2023 Phencyclidine Ql (U) Negative < 25 ng/mL [facility] Urine sediment bacteria coun t by microscopy (number/high power field)Ordered By: Jacky Arevalo on 05-09-2023 Bacteria LM.HPF (Urine sed) [#/Area] 1 /[HPF] None Seen [facility] Urine specific gravity measu rementOrdered By: Jacky Arevalo on 05-09-2023 Specific gravity (U) [Rel density] 1.015 1.002-1.030 [facility] Urine urobilinogen measureme ntOrdered By: Jacky Arevalo on 05-09-2023 Urobilinogen Ql (U) Normal mg/dl Normal [facility] Thin prep Papanicolaou smear with manual screeningOrdered By: Ashley Alvarado on 04-27-2023 Thin prep Papanicolaou smear with manual screening 104 mg/dL 74-106 [facility] Comment on above: MANAGEMENT OF PATIEN T CARE PER NURSING PROTOCOL Basophil percentageOrdered B y: Ashley Alvarado on 04-24-2023 Basophil percentage 73 mg/dL <200 [facility] Basophil percentage 122 mg/dL <199 [facility] Cholesterol [Mass/Vol] 73 mg/dL <200 [facility] Comment on above: <200 mg/dL Desirable 200-240 mg/dL Borderline >240 mg/dL High Risk Triglyceride [Mass/Vol] 122 mg/dL <199 [facility] Comment on above: The drugs N-Acetylcy steine and Metamizole may falsely depress this assay.Serum Triglycerides Reference Interval Normal <150 mg/dL Borderline high 150 - 199 mg/dL High 200 - 499 mg/dL Very High > or = 500 mg/dL Laboratory - Chemistry and C hemistry - challengeOrdered By: Ashley Alvarado on 04-24-2023 Cholesterol in HDL [Mass/Vol] 23 mg/dL >40 [facility] Comment on above: The drugs N-Acetylcy steine and Metamizole may falsely depress this assay. Reference Range HDL <40 mg/dL Low HDL Cholesterol HDL >or= 60 mg/dL High HDL Cholesterol Cholesterol in LDL [Mass/Vol] 26 mg/dL 0-130 [facility] No Panel InformationOrdered By: Ashley Alvarado on 04-24-2023 VLDL Cholesterol 24 mg/dL 5-40 [facility] 23 mg/dL >40 [facility] 26 mg/dL 0-130 [facility] 24 mg/dL 5-40 [facility] Basophil percentageOrdered B y: Conrado Fraser on 04-22-2023 Basophil percentage 0 SEEN /hpf 0-5 [facility] Bilirubin Test strip Ql (U)O rdered By: Conrado Fraser on 04-22-2023 Bilirubin Ql (U) Negative Negative [facility] Ketones Test strip Ql (U)Ord ered By: Conrado Fraser on 04-22-2023 Ketones Ql (U) Negative Negative [facility] Mucus LM Ql (Urine sed)Order ed By: Conrado Fraser on 04-22-2023 Mucus Ql (Urine sed) 0 SEEN /hpf [facility] Nitrite Test strip Ql (U)Ord ered By: Conrado Fraser on 04-22-2023 Nitrite Ql (U) Negative Negative [facility] No Panel InformationOrdered By: Conrado Fraser on 04-22-2023 Urine RBC 0-5 SEEN /hpf 0-5 [facility] 0-5 SEEN /hpf 0-5 [facility] Protein Test strip Ql (U)Ord ered By: Conrado Fraser on 04-22-2023 Protein Ql (U) 15 mg/dl Negative [facility] Squamous epithelial cells de tection in urine sediment by light microscopyOrdered By: Conrado Fraser on 04-22-2023 Epithelial cells.squamous LM Ql (Urine sed) 5-10 SEEN /hpf 0-5 [facility] Urine blood detectionOrdered By: Conrado Fraser on 04-22-2023 RBC Ql (U) Negative Negative [facility] Urine clarityOrdered By: Beck Fraser on 04-22-2023 Clarity (U) Clear Clear [facility] Urine color determinationOrd ered By: Conrado Fraser on 04-22-2023 Color (U) Yellow Yellow [facility] Urine glucose detectionOrder ed By: Conrado Fraser on 04-22-2023 Glucose Ql (U) 100 mg/dl Normal [facility] Urine leukocyte esterase det ection by dipstickOrdered By: Conrado Fraser on 04-22-2023 Leukocyte esterase Test strip Ql (U) 25 /ul Negative [facility] Urine pHOrdered By: Conrado arredondo on 04-22-2023 pH (U) 8.0 [pH] 5.0 - 8.0 [facility] Urine sediment bacteria coun t by microscopy (number/high power field)Ordered By: Conrado Fraser on 04-22-2023 Bacteria LM.HPF (Urine sed) [#/Area] 0 /[HPF] None Seen [facility] Urine specific gravity measu rementOrdered By: Conrado Fraser on 04-22-2023 Specific gravity (U) [Rel density] 1.015 1.002-1.030 [facility] Urine urobilinogen measureme ntOrdered By: Conrado Fraser on 04-22-2023 Urobilinogen Ql (U) Normal mg/dl Normal [facility] Basophil percentageOrdered B y: Lucas Frausto on 04-21-2023 Basophil percentage 106 mg/dL 74-106 [facility] Basophil percentage 4.1 g/dL 6.4-8.2 [facility] Basophil percentage 1.00 mg/dL 0.20-1.00 [facility] Basophil percentage 143 mmol/L 136-145 [facility] Basophil percentage 3.6 mmol/L 3.5-5.1 [facility] Basophil percentage 106 mmol/L 98-107 [facility] Bilirubin [Mass/Vol] 1.00 mg/dL 0.20-1.00 [facility] Comment on above: For patients on eltr ombopag therapy, use of Dimension [place] TBIL is not recommended. Chloride [Moles/Vol] 106 mmol/L 98-107 [facility] Glucose [Mass/Vol] 106 mg/dL 74-106 [facility] Comment on above: Fasting Glucose resu lt from 100 to 125 mg/dL suggests IMPAIRED HOMEOSTASIS per A.D.A. criteria. Potassium [Moles/Vol] 3.6 mmol/L 3.5-5.1 [facility] Protein [Mass/Vol] 4.1 g/dL 6.4-8.2 [facility] Sodium [Moles/Vol] 143 mmol/L 136-145 [facility] Laboratory - Chemistry and C hemistry - challengeOrdered By: Lucas Frausto on 04-21-2023 Albumin/Globulin [Mass ratio] 0.6 {ratio} 0.9-2.4 [facility] ALP [Catalytic activity/Vol] 158 U/L 45- [facility] ALT [Catalytic activity/Vol] 70 U/L [facility] CO2 [Moles/Vol] 32.0 mmol/L 21.0-32.0 [facility] Globulin (S) [Mass/Vol] 2.5 g/dL 2.2-4.2 [facility] Urea nitrogen/Creatinine [Mass ratio] 5.2 mg/mg - [facility] No Panel InformationOrdered By: Lucas Frausto on 04-21-2023 Estimated Creatinine Clearance Calc 61.74 ml/min [facility] Estimated GFR (MDRD) Amer 83 mL/min >60 [facility] Comment on above: GFR Calc Estimated GFR (MDRD) Non-Af Amer 69 mL/min >60 [facility] Comment on above: Non- GFR Calc Hepatitis A IgM Antibody Negative Negative [facility] Hepatitis B Core IgM Antibody Negative Negative [facility] Hepatitis C Antibody (EIA) Non-Reactive Non Reactive [facility] Hepatitis C Antibody Comment Comment . [facility] Comment on above: Not infected with HC V unless early or acute infection issuspected (which may be delayed in an immunocompromisedindividual), or other evidence exists to indicate HCVinfection.Performed at: [facility] [id number] Director: Agustin Arredondo PhD, Phone: [phone] 69 mL/min >60 [facility] 83 mL/min >60 [facility] 61.74 ml/min [facility] 5.2 RATIO - [facility] 2.5 g/dL 2.2-4.2 [facility] 0.6 RATIO 0.9-2.4 [facility] 158 U/L 45- [facility] 70 U/L [facility] 32.0 mmol/L 21.0-32.0 [facility] Negative Negative [facility] Non-Reactive Non Reactive [facility] Comment . [facility] Serum or plasma calcium luciana urement (mass/volume)Ordered By: Lucas Frausto on 04-21-2023 Calcium [Mass/Vol] 7.3 mg/dL 8.5-10.1 [facility] Serum or plasma creatinine m easurement (mass/volume)Ordered By: Lucas Frausto on 04-21-2023 Creatinine [Mass/Vol] 1.15 mg/dL 0.70-1.30 [facility] Comment on above: The validity of the calculated GFR & GFRAA in patients over 70 years has not been determined. Clinical correlation is essential. Serum or plasma hepatitis B virus surface antigen detection by immunoassayOrdered By: Lucas Frausto on 04-21-2023 HBV surface Ag IA Ql Negative Negative [facility] Serum or plasma urea nitroge n measurement (mass/volume)Ordered By: Lucas Frausto on 04-21-2023 Urea nitrogen [Mass/Vol] 6 mg/dL 7-18 [facility] Thin prep Papanicolaou smear with manual screeningOrdered By: Lucas Frausto on 04-21-2023 Thin prep Papanicolaou smear with manual screening 1.6 g/dL 3.2-5.0 [facility] Thin prep Papanicolaou smear with manual screening 221 U/L 15-37 [facility] Thin prep Papanicolaou smear with manual screening 5 5-15 [facility] Absolute lymphocyte countOrd ered By: Chris Call on 04-20-2023 Lymphocytes Auto (Unsp spec) [#/Vol] 0.90 10*3/uL 0.83-4.51 [facility] Basophil percentageOrdered B y: Chris Call on 04-20-2023 Basophil percentage 11.8 g/dL 13.0-16.5 [facility] Basophils (Bld) [#/Vol] 8.0 10*3/uL 4.4-11.0 [facility] Basophils (Bld) [#/Vol] 6.1 10*3/uL 2.0-7.7 [facility] Basophils/100 WBC (Bld) 0.9 % 0-[address] [facility] Basophils/100 WBC (Bld) 76.5 % 47-[address] [facility] Basophils/100 WBC (Bld) 11.2 % 19-[address] [facility] Basophils/100 WBC (Bld) 10.2 % 0-[address] [facility] Basophils/100 WBC (Bld) 0.5 % 0-[address] [facility] Eosinophils/100 WBC (Bld) 0.5 % 0-5 [facility] Hemoglobin (Bld) [Mass/Vol] 11.8 g/dL 13.0-16.5 [facility] Lymphocytes/100 WBC (Bld) 11.2 % 19-41 [facility] Monocytes/100 WBC (Bld) 10.2 % 0-[address] [facility] Neutrophils (Bld) [#/Vol] 6.1 10*3/uL 2.0-7.7 [facility] Neutrophils/100 WBC (Bld) 76.5 % 47-70 [facility] WBC (Bld) [#/Vol] 8.0 10*3/uL 4.4-11.0 [facility] Determination of erythrocyte mean corpuscular volume (MCV)Ordered By: Chris Call on 04-20-2023 MCV (RBC) [Entitic vol] 102.0 fL 80-94 [facility] Direct bilirubinOrdered By: Chris Call on 04-20-2023 Bilirubin.direct [Mass/Vol] 0.42 mg/dL 0.00-0.30 [facility] Erythrocyte distribution wid th ratioOrdered By: Chris Call on 04-20-2023 Erythrocyte distribution width (RBC) [Ratio] 15.4 % 11.6-14.6 [facility] Hematocrit Auto (Bld) [Volum e fraction]Ordered By: Chris Call on 04-20-2023 Hematocrit (Bld) [Volume fraction] 35.9 % 40-54 [facility] Laboratory - Chemistry and C hemistry - challengeOrdered By: Chris Call on 04-20-2023 Lipase [Catalytic activity/Vol] U/L 13-75 [facility] Comment on above: Please note:LIPASE r evised reference range effective 22. New Lipase methodology. Expected to produce lower values than the previous assay method. NEW Reference Range: 13 - 75 U/L Laboratory - Drug toxicology Ordered By: Chris Call on 04-20-2023 Amphetamines Ql (U) Negative <1000 ng/mL [facility] Benzodiazepines Ql (U) Negative < 200 ng/mL [facility] Cannabinoids Screen Ql (U) Negative < 50 ng/mL [facility] Cocaine Ql (U) Negative < 300 ng/mL [facility] Opiates Ql (U) Negative < 300 ng/mL [facility] Laboratory - Hematology and Cell countsOrdered By: Chris Call on 04-20-2023 Erythrocyte distribution width (RBC) [Entitic vol] 57.8 fL 35.1-43.9 [facility] Immature granulocytes/100 WBC (Bld) 0.700 % 0.0-0.9 [facility] Comment on above: IG% - Immature Granu locytes (promyelocytes, myelocytes and metamyelocytes) > 1% indicates that a LEFT SHIFT is Present. MCH (RBC) [Entitic mass] 33.5 pg 27.0-32.0 [facility] MCHC (RBC) [Mass/Vol] 32.9 g/dL [facility] Platelet mean volume (Bld) [Entitic vol] 10.8 fL 6.2-12.0 [facility] No Panel InformationOrdered By: Chris Call on 04-20-2023 Ethyl Alcohol Level 56.0 mg/dL [facility] Comment on above: The serum:whole bloo d ethanol ratio is approximately 1.14and varies slightly with hematocrit. Medical Alcohol reference interval and critical value innon-tolerant individuals; 50 - 100 Impairment 100 Intoxication 100 - 250 Severe Poisoning 250 - 400 Deep/possible fatal comaRESULT(S) PREVIOUSLY REPORTED ON MANUAL REQUISITION DURINGDOWNTIME. 33.5 pg 27.0-32.0 [facility] 32.9 g/dL -36 [facility] 57.8 fl 35.1-43.9 [facility] 10.8 fl 6.2-12.0 [facility] 0.700 % 0.0-0.9 [facility] < 10 U/L 13 [facility] 56.0 mg/dL [facility] MDMA (Ecstasy) Screen Negative < 500 ng/mL [facility] Urine Barbiturates Screen Negative < 200 ng/mL [facility] Urine Drug Screen Comment [facility] Comment on above: CONFIRMATORY TESTING FOR [...] Screen Negative < 300 ng/mL [facility] Negative < 50 ng/mL [facility] Platelets bldOrdered By: Fox Call on 04-20-2023 Platelets (Bld) [#/Vol] 132 10*3/uL 150-450 [facility] RBC Auto (Bld) [#/Vol]Ordere d By: Chris Call on 04-20-2023 RBC (Bld) [#/Vol] 3.52 10*6/uL 4.6-6.2 [facility] Urine phencyclidine (PCP) de tectionOrdered By: Chris Call on 04-20-2023 Phencyclidine Ql (U) Negative < 25 ng/mL [facility] GGTon 04-02-2023 Gamma GT 280 U/L High 15-85 [facility] ([place]) Comment on above: Performed By: #### L RADHA SARGENT MDW, CBC, GFR, CMP, TROPHS, ANEU #### [place] [address] .GFRon 04-01-2023 GFR 77 ml/min/1.73sqm Normal [facility] ([place]) Comment on above: Result Comment: GFR Population [...] MDW, CBC, GFR, CMP, TROPHS, ANEU #### [place] [address] GFR Non- 64 ml/min/1.73sqm Normal [facility] ([place] Comment on above: Result Comment: GFR Population [...] MDW, CBC, GFR, CMP, TROPHS, ANEU #### [place] [id number] AMYon 04-01-2023 Amylase [Catalytic activity/Vol] 66 U/L Normal 25-115 [facility] ([place] Comment on above: Performed By: #### L RADHA SARGENT MDW, CBC, GFR, CMP, TROPHS, ANEU #### [address] 04-01-2023 Albumin Level 2.3 G/dL Low 3.4-4.8 [facility] ([place] Comment on above: Performed By: #### L RADHA SARGENT MDW, CBC, GFR, CMP, TROPHS, ANEU #### [address] [address] Albumin/Globulin [Mass ratio] 0.7 {ratio} Low 1.1-2.5 [facility] ([place] Comment on above: Performed By: #### L RADHA SARGENT MDW, CBC, GFR, CMP, TROPHS, ANEU #### [address] [address] ALP [Catalytic activity/Vol] 161 U/L High 40-135 [facility] ([place] Comment on above: Performed By: #### L RADHA SARGENT MDW, CBC, GFR, CMP, TROPHS, ANEU #### [address] [address] ALT [Catalytic activity/Vol] 47 U/L Normal 16-63 [facility] ([place] Comment on above: Performed By: #### L RADHA SARGENT MDW, CBC, GFR, CMP, TROPHS, ANEU #### [address] [address] AST [Catalytic activity/Vol] 56 U/L High 10-40 [facility] ([place] Comment on above: Performed By: #### L RADHA SARGENT MDW, CBC, GFR, CMP, TROPHS, ANEU #### [address] [address] Bili Total 0.5 mg/dL Normal 0.2-1.0 [facility] ([place] Comment on above: Result Comment: Use of this assay is not recommended for patients undergoing treatment with eltrombopag due to the potential for falsely elevated results. Performed By: #### L RADHA SARGENT MDW, CBC, GFR, CMP, TROPHS, ANEU #### [address] [address] BUN/Creatinine Ratio 6 ratio Low 7-27 [facility] ([place] Comment on above: Performed By: #### L RADHA SARGENT MDW, CBC, GFR, CMP, TROPHS, ANEU #### [address] [address] Calcium [Mass/Vol] 8.2 mg/dL Low 8.4-10.2 [facility] ([place] Comment on above: Performed By: #### L RADHA SARGENT MDW, CBC, GFR, CMP, TROPHS, ANEU #### [address] [address] Chloride [Moles/Vol] 105 mmol/L Normal 98-107 [facility] ([place] Comment on above: Performed By: #### L RADHA SARGENT MDW, CBC, GFR, CMP, TROPHS, ANEU #### [address] [address] CO2 [Moles/Vol] 28 mmol/L Normal 23-31 [facility] ([place] Comment on above: Performed By: #### L RADHA SARGENT MDW, CBC, GFR, CMP, TROPHS, ANEU #### [address] [address] Creatinine [Mass/Vol] 1.17 mg/dL Normal 0.70-1.30 [facility] ([place] Comment on above: Performed By: #### L RADHA SARGENT MDW, CBC, GFR, CMP, TROPHS, ANEU #### [address] [address] Electrolyte Balance 5.0 mEq/L Normal 4.0-15.0 [facility] ([place] Comment on above: Performed By: #### L RADHA SARGENT MDW, CBC, GFR, CMP, TROPHS, ANEU #### [address] [address] Globulin 3.1 G/dL Normal [facility] ([place] Comment on above: Performed By: #### L RADHA SARGENT MDW, CBC, GFR, CMP, TROPHS, ANEU #### [address] [address] Glucose [Mass/Vol] 211 mg/dL High 80-115 [facility] ([place] Comment on above: Performed By: #### L RADHA SARGENT MDW, CBC, GFR, CMP, TROPHS, ANEU #### [place] [phone] Potassium [Moles/Vol] 5.4 mmol/L High 3.5-5.1 [facility] ([place] Comment on above: Performed By: #### L RADHA SARGENT MDW, CBC, GFR, CMP, TROPHS, ANEU #### [address] [address] Sodium [Moles/Vol] 138 mmol/L Normal 136-145 [facility] ([place] Comment on above: Performed By: #### L RADHA SARGENT MDW, CBC, GFR, CMP, TROPHS, ANEU #### [place] [id number] Total Protein 5.4 G/dL Low 6.4-8.2 [facility] ([place] Comment on above: Performed By: #### L RADHA SARGENT MDW, CBC, GFR, CMP, TROPHS, ANEU #### [place] [address] Urea nitrogen [Mass/Vol] 7 mg/dL Normal 7-18 [facility] ([place] Comment on above: Performed By: #### L RADHA SARGENT MDW, CBC, GFR, CMP, TROPHS, ANEU #### [address] [address] FEon 04-01-2023 Iron [Mass/Vol] 79 ug/dL Normal 65-175 [facility] ([place] Comment on above: Performed By: #### L RADHA SARGENT MDW, CBC, GFR, CMP, TROPHS, ANEU #### [place] [id number] IBCon 04-01-2023 TIBC 118 mcg/dL Low 250-450 [facility] ([place] Comment on above: Performed By: #### L RADHA SARGENT MDW, CBC, GFR, CMP, TROPHS, ANEU #### [place] [id number] LIPon 04-01-2023 Lipase Level <10 Low 16-77 [facility] ([place] Comment on above: Performed By: #### L RADHA SARGENT MDW, CBC, GFR, CMP, TROPHS, ANEU #### [address] [address] MGon 04-01-2023 Magnesium [Mass/Vol] 1.9 mg/dL Normal 1.8-2.4 [facility] ([place] Comment on above: Performed By: #### L ARDHA SARGENT MDW, CBC, GFR, CMP, TROPHS, ANEU #### [place] [address] TSHon 04-01-2023 TSH Qn 1.36 m[IU]/L Normal 0.36-3.74 [facility] ([place] Comment on above: Performed By: #### RADHA COSTA MDW, CBC, GFR, CMP, TROPHS, ANEU #### [place] [address] VIDHon 04-01-2023 Vit. D 25-Hydroxy 41.5 ng/mL Normal [facility] ([place] Comment on above: Result Comment: Inte rpretive Values Based on Total 25(OH) Vitamin D: Deficient <20 ng/mL Insufficient 20 - <30 ng/mL Sufficient 30-100 ng/mL Performed By: #### L RADHA SARGENT MDW, CBC, GFR, CMP, TROPHS, ANEU #### [place] [address] .Auto Diffon 03-19-2023 Basophil, Absolute 0.0 10 3/mcL Normal 0.0-0.3 [facility] ([place] Comment on above: Performed By: #### L RADHA SARGENT MDW, CBC, GFR, CMP, TROPHS, ANEU #### [place] [address] Basophils/100 WBC (Bld) 0.8 % Normal 0.0-2.5 [facility] ([place] Comment on above: Performed By: #### RADHA COSTA MDW, CBC, GFR, CMP, TROPHS, ANEU #### [address] [address] Eosinophil, Absolute 0.1 10 3/mcL Normal 0.0-0.7 [facility] ([place] Comment on above: Performed By: #### L AC, ADIFF, MDW, CBC, GFR, CMP, TROPHS, ANEU #### [address] [address] Eosinophils/100 WBC (Bld) 2.3 % Normal 0.0-6.0 [facility] ([place] Comment on above: Performed By: #### L AC, ADIFF, MDW, CBC, GFR, CMP, TROPHS, ANEU #### [address] [address] Lymphocyte, Absolute 1.1 10 3/mcL Normal 0.9-4.3 [facility] ([place]) Comment on above: Performed By: #### L AC, ADIFF, MDW, CBC, GFR, CMP, TROPHS, ANEU #### [address] [address] Lymphocytes/100 WBC (Bld) 18.7 % Low 20.0-40.0 [facility] ([place]) Comment on above: Performed By: #### L AC, ADIFF, MDW, CBC, GFR, CMP, TROPHS, ANEU #### [address] [address] Monocyte, Absolute 0.7 10 3/mcL Normal 0.1-1.4 [facility] ([place]) Comment on above: Performed By: #### L AC, ADBOLIVAR, MDW, CBC, GFR, CMP, TROPHS, ANEU #### [address] [address] Monocytes/100 WBC (Bld) 13.0 % Normal 2.0-13.0 [facility] ([place]) Comment on above: Performed By: #### L AC, ADIFF, MDW, CBC, GFR, CMP, TROPHS, ANEU #### [address] [address] Neutrophils/100 WBC (Bld) 65.2 % Normal 50.0-75.0 [facility] ([place]) Comment on above: Performed By: #### L AC, ADIFF, MDW, CBC, GFR, CMP, TROPHS, ANEU #### [address] [address] .GFRon 03-19-2023 GFR >60 Normal [facility] ([place] Comment on above: Result Comment: GFR Population [...] MDW, CBC, GFR, CMP, TROPHS, ANEU #### [address] [address] GFR Non- >60 Normal [facility] ([place] Comment on above: Result Comment: GFR Population [...] MDW, CBC, GFR, CMP, TROPHS, ANEU #### [address] [address] .NEUABSon 03-19-2023 Neutrophil, Absolute 3.7 10 3/mcL Normal 2.3-8.1 [facility] ([place] Comment on above: Performed By: #### L RADHA SARGENT MDW, CBC, GFR, CMP, TROPHS, ANEU #### [address] [address] BMPon 03-19-2023 BUN/Creatinine Ratio 10.2 ratio Normal 10.0-22.0 [facility] ([place] Comment on above: Performed By: #### L RADHA SARGENT MDW, CBC, GFR, CMP, TROPHS, ANEU #### [address] [address] Calcium [Mass/Vol] 7.9 mg/dL Low 8.7-10.4 [facility] ([place] Comment on above: Performed By: #### L RADHA SARGENT MDW, CBC, GFR, CMP, TROPHS, ANEU #### [place] [phone] Chloride [Moles/Vol] 111 mmol/L High 98-110 [facility] ([place] Comment on above: Performed By: #### L RADHA SARGENT MDW, CBC, GFR, CMP, TROPHS, ANEU #### [place] [phone] CO2 [Moles/Vol] 21 mmol/L Low 22-32 [facility] ([place] Comment on above: Performed By: #### L RADHA SARGENT MDW, CBC, GFR, CMP, TROPHS, ANEU #### [address] [address] Creatinine [Mass/Vol] 1.08 mg/dL Normal 0.60-1.40 [facility] ([place] Comment on above: Performed By: #### L RADHA SARGENT MDW, CBC, GFR, CMP, TROPHS, ANEU #### [address] [address] Electrolyte Balance 7.0 mEq/L Normal 4.0-15.0 [facility] ([place] Comment on above: Performed By: #### L RADHA SARGENT MDW, CBC, GFR, CMP, TROPHS, ANEU #### [address] [address] Glucose [Mass/Vol] 74 mg/dL Low 82-115 [facility] ([place] Comment on above: Performed By: #### L RADHA SARGENT MDW, CBC, GFR, CMP, TROPHS, ANEU #### [place] [address] Potassium [Moles/Vol] 4.6 mmol/L Normal 3.5-5.0 [facility] ([place] Comment on above: Performed By: #### L RADHA SARGENT MDW, CBC, GFR, CMP, TROPHS, ANEU #### [place] [address] Sodium [Moles/Vol] 139 mmol/L Normal 136-145 [facility] ([place] Comment on above: Performed By: #### L RADHA SARGENT MDW, CBC, GFR, CMP, TROPHS, ANEU #### [place] [address] Urea nitrogen [Mass/Vol] 11.0 mg/dL Normal 8.0-22.0 [facility] ([place] Comment on above: Performed By: #### L RADHA SARGENT MDW, CBC, GFR, CMP, TROPHS, ANEU #### [place] [address] CBCon 03-19-2023 Erythrocyte distribution width (RBC) [Ratio] 14.6 % Normal 11.5-15.5 [facility] ([place] Comment on above: Performed By: #### L RADHA SARGENT MDW, CBC, GFR, CMP, TROPHS, ANEU #### [place] [address] Hematocrit (Bld) [Volume fraction] 36.3 % Low 40.0-52.0 [facility] ([place] Comment on above: Performed By: #### L RADHA SARGENT MDW, CBC, GFR, CMP, TROPHS, ANEU #### [place] [address] Hgb 12.2 G/dL Low 13.0-17.5 [facility] ([place] Comment on above: Performed By: #### L RADHA SARGENT MDW, CBC, GFR, CMP, TROPHS, ANEU #### [place] [phone] MCH (RBC) [Entitic mass] 34.5 pg High 27.0-33.0 [facility] ([place] Comment on above: Performed By: #### L RADHA SARGENT MDW, CBC, GFR, CMP, TROPHS, ANEU #### [place] [address] MCHC 33.6 G/dL Normal 32.0-36.0 [facility] [place] Comment on above: Performed By: #### L RADHA SARGENT MDW, CBC, GFR, CMP, TROPHS, ANEU #### [place] [address] MCV (RBC) [Entitic vol] 102.6 fL High 81.0-100.0 [facility] ([place] Comment on above: Performed By: #### L RADHA SARGENT MDW, CBC, GFR, CMP, TROPHS, ANEU #### [place] [address] Platelet 165 10 3/mcL Normal 150-450 [facility] ([place] Comment on above: Performed By: #### L RADHA SARGENT MDW, CBC, GFR, CMP, TROPHS, ANEU #### [place] [address] Platelet mean volume (Bld) [Entitic vol] 8.8 fL Normal 6.4-10.5 [facility] ([place] Comment on above: Performed By: #### L RADHA SARGENT MDW, CBC, GFR, CMP, TROPHS, ANEU #### [place] [address] RBC 3.53 10 6/mcL Low 4.50-6.00 [facility] ([place]) Comment on above: Performed By: #### L RADHA SARGENT MDW, CBC, GFR, CMP, TROPHS, ANEU #### [place] [address] WBC 5.7 10 3/mcL Normal 4.5-10.8 [facility] ([place] Comment on above: Performed By: #### L RADHA SARGENT MDW, CBC, GFR, CMP, TROPHS, ANEU #### [facility] [address] [place] [address] LABORATORYOrdered By: Yessica Collazo on 03-19-2023 Blood Glucose Testing Reason Routine (03/19/23 11:18 AM) [facility] Work Phone: Glucose [Mass/Vol] 123 mg/dL High 82 - 115 mg/dL [facility] Work Phone: LABORATORYOrdered By: Esequiel Porter on 03-19-2023 Blood Glucose Testing Reason Routine (03/19/23 8:26 AM) [facility] Work Phone: Glucose [Mass/Vol] 122 mg/dL High 82 - 115 mg/dL [facility] Work Phone: LABORATORYOrdered By: Syd Aguayo on 03-19-2023 Glucose [Mass/Vol] 42 mg/dL Invalid Interpretation Code 82 - 115 mg/dL [facility] Work Phone: LABORATORYOrdered By: SYSTEM SYSTEM on [...] (S/P/Bld) [Vol rate/Area] ml/min/1.73sqm Invalid Interpretation Code [facility] S Comment on above: Interpretive Data: [...] (S/P/Bld) [Vol rate/Area] ml/min/1.73sqm Invalid Interpretation Code [employer] [facility] Comment on above: Interpretive Data: [...] 102.6 fL High 81.0 - 100.0 fL AH Workflow SS Monocytes (Bld) [#/Vol] 0.7 103/mcL [...] Glucose Testing Reason Routine (03/18/23 9:26 PM) [facility] Work Phone: LABORATORYOrdered By: Lin Hughes on 03-18-2023 Blood Glucose Interventions Retest (03/18/23 8:48 AM) [facility] Work Phone: Blood Glucose Interventions Administered agent to increase blood sugar (03/18/23 7:34 AM) [facility] Work Phone: MRI BRAIN W/O CONTRASTon MRI [...] 03/18/2023 7:45:52 PM Ordering Provider: MARIELY White [facility] ([place] .Auto Diffon 03-17-2023 Basophil, Absolute 0.1 10 3/mcL Normal 0.0-0.3 [facility] ([place] Comment on above: Performed By: #### L AC, ADIFF, MDW, CBC, GFR, CMP, TROPHS, ANEU #### [address] [address] Basophils/100 WBC (Bld) 1.3 % Normal 0.0-2.5 [facility] ([place]) Comment on above: Performed By: #### L BELLE, RADHA, W, CBC, GFR, CMP, TROPHS, ANEU #### [address] [address] Eosinophil, Absolute 0.1 10 3/mcL Normal 0.0-0.7 [facility] ([place]) Comment on above: Performed By: #### L BELLE, RADHA, W, CBC, GFR, CMP, TROPHS, ANEU #### [address] [address] Eosinophils/100 WBC (Bld) 2.6 % Normal 0.0-6.0 [facility] ([place]) Comment on above: Performed By: #### L RADHA SARGENT, W, CBC, GFR, CMP, TROPHS, ANEU #### [address] [address] Lymphocyte, Absolute 1.0 10 3/mcL Normal 0.9-4.3 [facility] ([place]) Comment on above: Performed By: #### L RADHA SARGENT, W, CBC, GFR, CMP, TROPHS, ANEU #### [address] [address] Lymphocytes/100 WBC (Bld) 21.5 % Normal 20.0-40.0 [facility] ([place]) Comment on above: Performed By: #### L RADHA SARGENT, W, CBC, GFR, CMP, TROPHS, ANEU #### [address] [address] Monocyte, Absolute 0.5 10 3/mcL Normal 0.1-1.4 [facility] ([place]) Comment on above: Performed By: #### L BELLE, RADHA, W, CBC, GFR, CMP, TROPHS, ANEU #### [address] [address] Monocytes/100 WBC (Bld) 11.9 % Normal 2.0-13.0 [facility] ([place] Comment on above: Performed By: #### L RADHA SARGENT MDW, CBC, GFR, CMP, TROPHS, ANEU #### [address] [address] Neutrophils/100 WBC (Bld) 62.7 % Normal 50.0-75.0 [facility] ([place] Comment on above: Performed By: #### L RADHA SARGENT MDW, CBC, GFR, CMP, TROPHS, ANEU #### [address] [address] .GFRon 03-17-2023 GFR >60 Normal [facility] ([place] Comment on above: Result Comment: GFR Population [...] MDW, CBC, GFR, CMP, TROPHS, ANEU #### [address] [address] GFR Non- >60 Normal [facility] ([place] Comment on above: Result Comment: GFR Population [...] MDW, CBC, GFR, CMP, TROPHS, ANEU #### [address] [address] .NEUABSon 03-17-2023 Neutrophil, Absolute 2.8 10 3/mcL Normal 2.3-8.1 [facility] ([place] Comment on above: Performed By: #### RADHA COSTA MDW, CBC, GFR, CMP, TROPHS, ANEU #### [address] [address] BMPon 03-17-2023 BUN/Creatinine Ratio 10.7 ratio Normal 10.0-22.0 [facility] ([place] Comment on above: Performed By: #### L RADHA SARGENT MDW, CBC, GFR, CMP, TROPHS, ANEU #### [address] [address] Calcium [Mass/Vol] 8.5 mg/dL Low 8.7-10.4 [facility] ([place] Comment on above: Performed By: #### L RADHA SARGENT MDW, CBC, GFR, CMP, TROPHS, ANEU #### [address] [address] Chloride [Moles/Vol] 109 mmol/L Normal 98-110 [facility] ([place] Comment on above: Performed By: #### RADHA COSTA MDW, CBC, GFR, CMP, TROPHS, ANEU #### [address] [address] CO2 [Moles/Vol] 27 mmol/L Normal 22-32 [facility] ([place] Comment on above: Performed By: #### L RADHA SARGENT MDW, CBC, GFR, CMP, TROPHS, ANEU #### [address] [address] Creatinine [Mass/Vol] 0.84 mg/dL Normal 0.60-1.40 [facility] ([place] Comment on above: Performed By: #### L RADHA SARGENT MDW, CBC, GFR, CMP, TROPHS, ANEU #### [place] [address] Electrolyte Balance 3.0 mEq/L Low 4.0-15.0 [facility] ([place] Comment on above: Performed By: #### L RADHA SARGENT MDW, CBC, GFR, CMP, TROPHS, ANEU #### [place] [address] Glucose [Mass/Vol] 69 mg/dL Low 82-115 [facility] ([place] Comment on above: Performed By: #### L RADHA SARGENT MDW, CBC, GFR, CMP, TROPHS, ANEU #### [place] [address] Potassium [Moles/Vol] 4.4 mmol/L Normal 3.5-5.0 [facility] ([place] Comment on above: Performed By: #### L RADHA SARGENT MDW, CBC, GFR, CMP, TROPHS, ANEU #### [place] [address] Sodium [Moles/Vol] 139 mmol/L Normal 136-145 [facility] ([place] Comment on above: Performed By: #### L RADHA SARGENT MDW, CBC, GFR, CMP, TROPHS, ANEU #### [place] [address] Urea nitrogen [Mass/Vol] 9.0 mg/dL Normal 8.0-22.0 [facility] ([place] Comment on above: Performed By: #### L RADHA SARGENT MDW, CBC, GFR, CMP, TROPHS, ANEU #### [place] [address] CBCon 03-17-2023 Erythrocyte distribution width (RBC) [Ratio] 14.3 % Normal 11.5-15.5 [facility] ([place] Comment on above: Performed By: #### L RADHA SARGENT MDW, CBC, GFR, CMP, TROPHS, ANEU #### [facility] [address] [place], [place] [address] Hematocrit (Bld) [Volume fraction] 37.6 % Low 40.0-52.0 [facility] [place] Comment on above: Performed By: #### L RADHA SARGENT MDW, CBC, GFR, CMP, TROPHS, ANEU #### [address] [address] Hgb 12.7 G/dL Low 13.0-17.5 [facility] ([place] Comment on above: Performed By: #### L RADHA SARGENT MDW, CBC, GFR, CMP, TROPHS, ANEU #### [place] [id number] MCH (RBC) [Entitic mass] 34.2 pg High 27.0-33.0 [facility] ([place] Comment on above: Performed By: #### L RADHA SARGENT MDW, CBC, GFR, CMP, TROPHS, ANEU #### [place] [id number] MCHC 33.7 G/dL Normal 32.0-36.0 [facility] [place] Comment on above: Performed By: #### L RADHA SARGENT MDW, CBC, GFR, CMP, TROPHS, ANEU #### [place] [id number] MCV (RBC) [Entitic vol] 101.7 fL High 81.0-100.0 [facility] ([place] Comment on above: Performed By: #### L RADHA SARGENT MDW, CBC, GFR, CMP, TROPHS, ANEU #### [place] [address] Platelet 189 10 3/mcL Normal 150-450 [facility] ([place] Comment on above: Performed By: #### L RADHA SARGENT MDW, CBC, GFR, CMP, TROPHS, ANEU #### [place] [id number] Platelet mean volume (Bld) [Entitic vol] 9.1 fL Normal 6.4-10.5 [facility] ([place] Comment on above: Performed By: #### L RADHA SARGENT MDW, CBC, GFR, CMP, TROPHS, ANEU #### [place] [address] RBC 3.70 10 6/mcL Low 4.50-6.00 [facility] ([place] Comment on above: Performed By: #### L RADHA SARGENT MDW, CBC, GFR, CMP, TROPHS, ANEU #### [place] [id number] WBC 4.4 10 3/mcL Low 4.5-10.8 [facility] ([place] Comment on above: Performed By: #### L RADHA SARGENT MDW, CBC, GFR, CMP, TROPHS, ANEU #### [place] [address] LABORATORYOrdered By: SYSTEM SYSTEM on 03-17-2023 Basophils [...] 12.7 G/dL Low 13.0 - 17.5 G/dL Workflow SS Lymphocytes (Bld) [#/Vol] 1.0 103/mcL [...] 4.4 mmol/L Normal 3.5 - 5.0 mEq/L AH ADM SS RBC (Bld) [#/Vol] 3.70 106/mcL Low 4.50 - 6.0 0 10^6/mcL AH Workflow SS Sodium [Moles/Vol] 139 mmol/L Normal 136 - 145 mEq/L AH ADM SS Urea nitrogen [Mass/Vol] 9.0 mg/dL Normal 8.0 - 22.0 mg/dL AH ADM SS Urea nitrogen/Creatinine [Mass ratio] 10.7 ratio Normal 10.0 - 22.0 ratio AH ADM SS WBC (Bld) [#/Vol] 4.4 103/mcL Low 4.5 - 10.8 10^3/mcL AH Workflow SS .Auto Diffon 03-16-2023 Basophil, Absolute 0.0 10 3/mcL Normal 0.0-0.3 [facility] ([place]) Comment on above: Performed By: #### L RADHA SARGENT MDW, CBC, GFR, CMP, TROPHS, ANEU #### [facility] [address] [place] [address] Basophils/100 WBC (Bld) 0.4 % Normal 0.0-2.5 [facility] ([place]) Comment on above: Performed By: #### L AC, ADIFF, MDW, CBC, GFR, CMP, TROPHS, ANEU #### [address] [address] Eosinophil, Absolute 0.1 10 3/mcL Normal 0.0-0.7 [facility] ([place] Comment on above: Performed By: #### L AC, ADIFF, MDW, CBC, GFR, CMP, TROPHS, ANEU #### [address] [address] Eosinophils/100 WBC (Bld) 1.2 % Normal 0.0-6.0 [facility] ([place]) Comment on above: Performed By: #### L AC, ADIFF, MDW, CBC, GFR, CMP, TROPHS, ANEU #### [address] [address] Lymphocyte, Absolute 0.8 10 3/mcL Low 0.9-4.3 [facility] ([place] Comment on above: Performed By: #### L AC, ADIFF, MDW, CBC, GFR, CMP, TROPHS, ANEU #### [address] [address] Lymphocytes/100 WBC (Bld) 11.6 % Low 20.0-40.0 [facility] ([place] Comment on above: Performed By: #### L AC, ADIFF, MDW, CBC, GFR, CMP, TROPHS, ANEU #### [address] [address] Monocyte, Absolute 0.6 10 3/mcL Normal 0.1-1.4 [facility] ([place]) Comment on above: Performed By: #### L AC, ADIFF, MDW, CBC, GFR, CMP, TROPHS, ANEU #### [address] [address] Monocytes/100 WBC (Bld) 8.3 % Normal 2.0-13.0 [facility] ([place] Comment on above: Performed By: #### L AC, ADIFF, MDW, CBC, GFR, CMP, TROPHS, ANEU #### [address] [address] Neutrophils/100 WBC (Bld) 78.5 % High 50.0-75.0 [facility] ([place] Comment on above: Performed By: #### L RADHA SARGENT MDW, CBC, GFR, CMP, TROPHS, ANEU #### [address] [address] .GFRon 03-16-2023 GFR Non- >60 Normal [facility] ([place] Comment on above: Result Comment: GFR Population [...] MDW, CBC, GFR, CMP, TROPHS, ANEU #### [address] [address] GFR >60 Normal [facility] ([place] Comment on above: Result Comment: GFR Population [...] MDW, CBC, GFR, CMP, TROPHS, ANEU #### [address] [address] .NEUABSon 03-16-2023 Neutrophil, Absolute 5.3 10 3/mcL Normal 2.3-8.1 [facility] ([place] Comment on above: Performed By: #### L RADHA SARGENT MDW, CBC, GFR, CMP, TROPHS, ANEU #### [address] [address] BMPon 03-16-2023 BUN/Creatinine Ratio 9.0 ratio Low 10.0-22.0 [facility] ([place]) Comment on above: Performed By: #### L RADHA SARGENT MDW, CBC, GFR, CMP, TROPHS, ANEU #### [address] [address] Calcium [Mass/Vol] 8.1 mg/dL Low 8.7-10.4 [facility] ([place]) Comment on above: Performed By: #### L RADHA SARGENT MDW, CBC, GFR, CMP, TROPHS, ANEU #### [address] [address] Chloride [Moles/Vol] 110 mmol/L Normal 98-110 [facility] ([place]) Comment on above: Performed By: #### RADHA COSTA MDW, CBC, GFR, CMP, TROPHS, ANEU #### [address] [address] CO2 [Moles/Vol] 26 mmol/L Normal 22-32 [facility] ([place]) Comment on above: Performed By: #### RADHA COSTA MDW, CBC, GFR, CMP, TROPHS, ANEU #### [address] [address] Creatinine [Mass/Vol] 0.89 mg/dL Normal 0.60-1.40 [facility] ([place]) Comment on above: Performed By: #### L RADHA SARGENT MDW, CBC, GFR, CMP, TROPHS, ANEU #### [address] [address] Electrolyte Balance 1.0 mEq/L Low 4.0-15.0 [facility] ([place]) Comment on above: Performed By: #### L RADHA SARGENT MDW, CBC, GFR, CMP, TROPHS, ANEU #### [address] [address] Glucose [Mass/Vol] 263 mg/dL High 82-115 [facility] ([place]) Comment on above: Performed By: #### L RADHA SARGENT MDW, CBC, GFR, CMP, TROPHS, ANEU #### [place] [id number] Potassium [Moles/Vol] 4.7 mmol/L Normal 3.5-5.0 [facility] ([place]) Comment on above: Result Comment: Spec imen slightly hemolyzed. Performed By: #### L RADHA SARGENT MDW, CBC, GFR, CMP, TROPHS, ANEU #### [place] [address] Sodium [Moles/Vol] 137 mmol/L Normal 136-145 [facility] ([place]) Comment on above: Performed By: #### L RADHA SARGENT MDW, CBC, GFR, CMP, TROPHS, ANEU #### [place] [id number] Urea nitrogen [Mass/Vol] 8.0 mg/dL Normal 8.0-22.0 [facility] ([place]) Comment on above: Performed By: #### L RADHA SARGENT MDW, CBC, GFR, CMP, TROPHS, ANEU #### [place] [id number] CBCon 03-16-2023 Erythrocyte distribution width (RBC) [Ratio] 14.7 % Normal 11.5-15.5 [facility] ([place]) Comment on above: Performed By: #### L RADHA SARGENT MDW, CBC, GFR, CMP, TROPHS, ANEU #### [place] [id number] Hematocrit (Bld) [Volume fraction] 38.7 % Low 40.0-52.0 [facility] ([place] Comment on above: Performed By: #### L RADHA SARGENT MDW, CBC, GFR, CMP, TROPHS, ANEU #### [place] [address] Hgb 13.0 G/dL Normal 13.0-17.5 [facility] ([place] Comment on above: Performed By: #### L RADHA SARGENT MDW, CBC, GFR, CMP, TROPHS, ANEU #### [place] [address] MCH (RBC) [Entitic mass] 34.1 pg High 27.0-33.0 [facility] ([place] Comment on above: Performed By: #### L RADHA SARGENT MDW, CBC, GFR, CMP, TROPHS, ANEU #### [place] [address] MCHC 33.5 G/dL Normal 32.0-36.0 [facility] ([place] Comment on above: Performed By: #### L RADHA SARGENT MDW, CBC, GFR, CMP, TROPHS, ANEU #### [place] [address] MCV (RBC) [Entitic vol] 101.7 fL High 81.0-100.0 A [facility] ([place]) Comment on above: Performed By: #### L RADHA SARGENT MDW, CBC, GFR, CMP, TROPHS, ANEU #### [place] [address] Platelet 196 10 3/mcL Normal 150-450 [facility] ([place] Comment on above: Performed By: #### L RADHA SARGENT MDW, CBC, GFR, CMP, TROPHS, ANEU #### [place] [address] Platelet mean volume (Bld) [Entitic vol] 8.6 fL Normal 6.4-10.5 [facility] ([place] Comment on above: Performed By: #### L RADHA SARGENT MDW, CBC, GFR, CMP, TROPHS, ANEU #### [place] [address] RBC 3.80 10 6/mcL Low 4.50-6.00 [facility] ([place] Comment on above: Performed By: #### L RADHA SARGENT MDW, CBC, GFR, CMP, TROPHS, ANEU #### [address] [address] WBC 6.7 10 3/mcL Normal 4.5-10.8 [facility] ([place] Comment on above: Performed By: #### L RADHA SARGENT MDW, CBC, GFR, CMP, TROPHS, ANEU #### [address] [address] LABORATORYOrdered By: SYSTEM SYSTEM on 03-16-2023 Calcium [...] (S/P/Bld) [Vol rate/Area] ml/min/1.73sqm Invalid Interpretation Code [facility] S Comment on above: Interpretive Data: [...] (S/P/Bld) [Vol rate/Area] ml/min/1.73sqm Invalid Interpretation Code [employer] [facility] S Comment on above: Interpretive Data: [...] [Mass/Vol] 1.8 mg/dL Normal 1.6-2.4 [facility] ([place]) Comment on above: Performed By: #### L BELLE, RADHA, KEIKO, CBC, GFR, CMP, TROPHS, ANEU #### [place] [address] PHOSon 03-16-2023 Phosphate [Mass/Vol] 4.6 mg/dL Normal 2.4-5.1 [facility] ([place]) Comment on above: Result Comment: No te - New Reference Range in effect 19 Performed By: #### L RADHA SARGENT MDW, CBC, GFR, CMP, TROPHS, ANEU #### [address] [address] .Auto Diffon 03-15-2023 Basophil, Absolute 0.0 10 3/mcL Normal 0.0-0.3 [facility] ([place] Comment on above: Performed By: #### L RADHA SARGENT MDW, CBC, GFR, CMP, TROPHS, ANEU #### [address] [address] Basophils/100 WBC (Bld) 0.9 % Normal 0.0-2.5 A [facility] ([place] Comment on above: Performed By: #### L RADHA SARGENT MDW, CBC, GFR, CMP, TROPHS, ANEU #### [address] [address] Eosinophil, Absolute 0.1 10 3/mcL Normal 0.0-0.7 [facility] ([place] Comment on above: Performed By: #### L RADHA SARGENT MDW, CBC, GFR, CMP, TROPHS, ANEU #### [address] [address] Eosinophils/100 WBC (Bld) 2.5 % Normal 0.0-6.0 [facility] ([place] Comment on above: Performed By: #### L RADHA SARGENT MDW, CBC, GFR, CMP, TROPHS, ANEU #### [address] [address] Lymphocyte, Absolute 1.5 10 3/mcL Normal 0.9-4.3 [facility] ([place] Comment on above: Performed By: #### L RADHA SARGENT MDW, CBC, GFR, CMP, TROPHS, ANEU #### [address] [address] Lymphocytes/100 WBC (Bld) 27.6 % Normal 20.0-40.0 [facility] ([place] Comment on above: Performed By: #### L RADHA SARGENT MDW, CBC, GFR, CMP, TROPHS, ANEU #### [address] [address] Monocyte, Absolute 0.5 10 3/mcL Normal 0.1-1.4 [facility] ([place] Comment on above: Performed By: #### L RADHA SARGENT MDW, CBC, GFR, CMP, TROPHS, ANEU #### [address] [address] Monocytes/100 WBC (Bld) 8.7 % Normal 2.0-13.0 A [facility] ([place] Comment on above: Performed By: #### L RADHA SARGENT MDW, CBC, GFR, CMP, TROPHS, ANEU #### [address] [address] Neutrophils/100 WBC (Bld) 60.3 % Normal 50.0-75.0 [facility] ([place] Comment on above: Performed By: #### L RADHA SARGENT MDW, CBC, GFR, CMP, TROPHS, ANEU #### [address] [address] .GFRon 03-15-2023 GFR Non- >60 Normal [facility] ([place] Comment on above: Result Comment: GFR Population [...] MDW, CBC, GFR, CMP, TROPHS, ANEU #### [place] [address] GFR >60 Normal [facility] ([place]) Comment on above: Result Comment: GFR Population [...] square meters Performed By: #### L RADHA SARGENT, KEIKO, CBC, GFR, CMP, TROPHS, ANEU #### [place] [address] .MDWon 03-15-2023 Monocyte Distribution Width 17.99 Normal 0.00-20.00 [facility] ([place] Comment on above: Result Comment: For ED adult patients suspected of sepsis, MDW<=20.0 does not rule out sepsis or risk of sepsis Performed By: #### L RADHA SARGENT MDW, CBC, GFR, CMP, TROPHS, ANEU #### [place] [address] .NEUABSon 03-15-2023 Neutrophil, Absolute 3.2 10 3/mcL Normal 2.3-8.1 [facility] ([place] Comment on above: Performed By: #### L RADHA SARGENT MDW, CBC, GFR, CMP, TROPHS, ANEU #### [place] [address] Wilbert 03-15-2023 Ammonia 27 mcmol/l Normal 11-32 [facility] ([place] Comment on above: Result Comment: Spec imen slightly hemolyzed. Performed By: #### L RADHA SARGENT, W, CBC, GFR, CMP, TROPHS, ANEU #### [place] [address] APTTon 03-15-2023 aPTT Coag (Bld) [Time] 29.7 s Normal 25.0-35.0 [facility] ([place] Comment on above: Order Comment: blue top clotted. called ann-marie. Result Comment: For Heparin anticoagulation therapy, the recommended therapeutic range is: 54-77 seconds (APTT Correlation with Anti-Xa therapeutic range of 0.3-0.7 units/ml). PLEASE REFERENCE THE PHARMACY PROTOCOL FOR DOSING. Performed By: #### L RADHA SARGENT MDW, CBC, GFR, CMP, TROPHS, ANEU #### [place] [address] Heparin dose (APTT) Unknown Normal [facility] ([place] Comment on above: Order Comment: blue top clotted. called ann-marie. Performed By: #### L RADHA SARGENT MDW, CBC, GFR, CMP, TROPHS, ANEU #### [place] [address] CBCon 03-15-2023 Erythrocyte distribution width (RBC) [Ratio] 14.7 % Normal 11.5-15.5 [facility] ([place] Comment on above: Performed By: #### L RADHA SARGENT MDW, CBC, GFR, CMP, TROPHS, ANEU #### [place] [address] Hematocrit (Bld) [Volume fraction] 38.5 % Low 40.0-52.0 [facility] ([place] Comment on above: Performed By: #### RADHA COSTA MDW, CBC, GFR, CMP, TROPHS, ANEU #### [place] [address] Hgb 12.8 G/dL Low 13.0-17.5 [facility] ([place] Comment on above: Performed By: #### RADHA COSTA MDW, CBC, GFR, CMP, TROPHS, ANEU #### [place] [address] MCH (RBC) [Entitic mass] 34.0 pg High 27.0-33.0 [facility] ([place] Comment on above: Performed By: #### L RADHA SARGENT MDW, CBC, GFR, CMP, TROPHS, ANEU #### [place] [address] MCHC 33.1 G/dL Normal 32.0-36.0 [facility] ([place] Comment on above: Performed By: #### L RADHA SARGENT MDW, CBC, GFR, CMP, TROPHS, ANEU #### [place] [address] MCV (RBC) [Entitic vol] 102.6 fL High 81.0-100.0 A [facility] ([place]) Comment on above: Performed By: #### L RADHA SARGENT MDW, CBC, GFR, CMP, TROPHS, ANEU #### [place] [address] Platelet 204 10 3/mcL Normal 150-450 [facility] ([place] Comment on above: Performed By: #### L RADHA SARGENT MDW, CBC, GFR, CMP, TROPHS, ANEU #### [place] [address] Platelet mean volume (Bld) [Entitic vol] 9.0 fL Normal 6.4-10.5 [facility] ([place] Comment on above: Performed By: #### L RADHA SARGENT MDW, CBC, GFR, CMP, TROPHS, ANEU #### [place] [address] RBC 3.75 10 6/mcL Low 4.50-6.00 [facility] ([place] Comment on above: Performed By: #### L RADHA SARGENT MDW, CBC, GFR, CMP, TROPHS, ANEU #### [place] [address] WBC 5.3 10 3/mcL Normal 4.5-10.8 [facility] ([place] Comment on above: Performed By: #### L RADHA SARGENT MDW, CBC, GFR, CMP, TROPHS, ANEU #### [place] [address] CMPon 03-15-2023 Albumin Level 2.4 G/dL Low 3.2-4.8 [facility] ([place] Comment on above: Performed By: #### L RADHA SARGENT MDW, CBC, GFR, CMP, TROPHS, ANEU #### [address] [address] Albumin/Globulin [Mass ratio] 0.9 {ratio} Normal 0.9-1.6 [facility] ([place] Comment on above: Performed By: #### L ARDHA SARGENT MDW, CBC, GFR, CMP, TROPHS, ANEU #### [address] [address] ALP [Catalytic activity/Vol] 125 U/L Normal 38-126 [facility] ([place] Comment on above: Performed By: #### L RADHA SARGENT MDW, CBC, GFR, CMP, TROPHS, ANEU #### [place] [id number] ALT [Catalytic activity/Vol] 29 U/L Normal 12-55 [facility] ([place] Comment on above: Performed By: #### L RADHA SARGENT MDW, CBC, GFR, CMP, TROPHS, ANEU #### [address] [address] AST [Catalytic activity/Vol] 53 U/L High 8-34 [facility] ([place] Comment on above: Performed By: #### L RADHA SARGENT MDW, CBC, GFR, CMP, TROPHS, ANEU #### [place] [id number] Bili Total <0.20 Normal 0.20-1.20 [facility] ([place] Comment on above: Result Comment: Use of this assay is not recommended for patients undergoing treatment with eltrombopag due to the potential for falsely elevated results. Performed By: #### L RADHA SARGENT MDW, CBC, GFR, CMP, TROPHS, ANEU #### [address] [address] Calcium [Mass/Vol] 8.0 mg/dL Low 8.7-10.4 [facility] ([place] Comment on above: Performed By: #### L RADHA SARGENT MDW, CBC, GFR, CMP, TROPHS, ANEU #### [address] [address] Chloride [Moles/Vol] 110 mmol/L Normal 98-110 [facility] ([place] Comment on above: Performed By: #### L RADHA SARGENT MDW, CBC, GFR, CMP, TROPHS, ANEU #### [address] [address] CO2 [Moles/Vol] 23 mmol/L Normal 22-32 [facility] ([place] Comment on above: Performed By: #### L RADHA SARGENT MDW, CBC, GFR, CMP, TROPHS, ANEU #### [address] [address] Creatinine [Mass/Vol] 0.92 mg/dL Normal 0.60-1.40 [facility] ([place] Comment on above: Performed By: #### L RADHA SARGENT MDW, CBC, GFR, CMP, TROPHS, ANEU #### [address] [address] Electrolyte Balance 8.0 mEq/L Normal 4.0-15.0 [facility] ([place] Comment on above: Performed By: #### L RADHA SARGENT MDW, CBC, GFR, CMP, TROPHS, ANEU #### [address] [address] Globulin 2.8 G/dL Normal 1.5-3.8 [facility] ([place] Comment on above: Performed By: #### L RADHA SARGENT MDW, CBC, GFR, CMP, TROPHS, ANEU #### [address] [address] Glucose [Mass/Vol] 241 mg/dL High 82-115 [facility] ([place] Comment on above: Performed By: #### L RADHA SARGENT MDW, CBC, GFR, CMP, TROPHS, ANEU #### [address] [address] Potassium [Moles/Vol] 4.1 mmol/L Normal 3.5-5.0 [facility] ([place] Comment on above: Result Comment: Spec imen slightly hemolyzed. Performed By: #### L RADHA SARGENT MDW, CBC, GFR, CMP, TROPHS, ANEU #### [address] [address] Sodium [Moles/Vol] 141 mmol/L Normal 136-145 [facility] ([place] Comment on above: Performed By: #### L RADHA SARGENT MDW, CBC, GFR, CMP, TROPHS, ANEU #### [address] [address] Total Protein 5.2 G/dL Low 5.7-8.2 [facility] ([place] Comment on above: Result Comment: No te - New Reference Range in effect 19 Performed By: #### L RADHA SARGENT MDW, CBC, GFR, CMP, TROPHS, ANEU #### [address] [address] Urea nitrogen [Mass/Vol] mg/dL Low 8.0-22.0 [facility] ([place] Comment on above: Performed By: #### L RADHA SARGENT MDW, CBC, GFR, CMP, TROPHS, ANEU #### [address] [address] Urea nitrogen/Creatinine [Mass ratio] mg/mg Low 10.0-22.0 [facility] ([place] Comment on above: Performed By: #### L RADHA SARGENT MDW, CBC, GFR, CMP, TROPHS, ANEU #### [address] [address] [address] ABD/PELVIS W/ IV CONTRAST ONLYon 03-15-2023 [...] guidelines. Reference: Radiology. 2017; 284(1):228-43. Interpreted by: Piper Zuñiga MD Preliminary Report By: Piper Zuñiga MD Electronically signed By Piper Zuñiga MD Dictated Date: 03/15/2023 2:50:56 PM Prelim Date: 03/15/2023 3:04:31 PM Sign Date: 03/15/2023 3:04:31 PM Ordering Provider: PEREZ RIBEIRO [facility] ([place] CT HEAD OR BRAIN W/O CONTRDUANE Ton 03-15-2023 CT HEAD OR BRAIN W/O [...] 03/15/2023 2:37:44 PM Ordering Provider: PEREZ [facility]) CVFLURVon 03-15-2023 FLU A PCR Negative Normal Negative [facility]) Comment on above: Result Comment: Note s 1990 Performed By: #### L RADHA SARGENT MDW, CBC, GFR, CMP, TROPHS, ANEU #### [address] [address] FLU B PCR Negative Normal Negative [facility] ([place] Comment on above: Result Comment: Note s 1990 Performed By: #### L RADHA SARGENT MDW, CBC, GFR, CMP, TROPHS, ANEU #### [address] [address] RSV PCR Negative Normal Negative [facility] ([place] Comment on above: Result Comment: Note s 1990 Performed By: #### L RADHA SARGENT MDW, CBC, GFR, CMP, TROPHS, ANEU #### [address] [address] SARS-CoV-2 (COVID-19) RNA GENEVA+probe Ql (Unsp spec) Negative Normal Negative [facility]) Comment on above: Result Comment: Note s [...] positive results. Performed By: #### L AC, ADIFF, MDW, CBC, GFR, CMP, TROPHS, ANEU #### [place] [address] LABORATORYOrdered By: SYSTEM SYSTEM on 03-15-2023 Ammonia (P) [Moles/Vol] 27 umol/L Normal 11 - 32 mcmol/L ADM SS Comment on above: Result Comment: Spec imen slightly hemolyzed. Albumin BCP dye [Mass/Vol] 2.4 G/dL Low 3.2 - 4.8 G/dL ADM SS Albumin/Globulin [Mass ratio] 0.9 {ratio} Normal 0.9 - 1.6 ratio ADM SS ALP [Catalytic activity/Vol] 125 U/L [...] 2.8 G/dL Normal 1.5 - 3.8 G/dL ADM SS Monocyte distribution width Auto (Bld) [Entitic vol] 17.99 1 Normal 0.00 - 20.00 AH Workflow SS Comment on above: Result Comment: [...] Lactic Acid Lvl 2.2 mmol/L High 0.2-2.0 [facility] ([place] Comment on above: Performed By: #### L RADHA SARGENT MDW, CBC, GFR, CMP, TROPHS, ANEU #### [place] [address] Lactic Acid Lvl 4.2 mmol/L High 0.2-2.0 [facility] ([place] Comment on above: Performed By: #### L RADHA SARGENT MDW, CBC, GFR, CMP, TROPHS, ANEU #### [address] [address] No Panel Informationon 03-15 Culture Urine No growth at 48 hours. [facility] Work Phone: Microscopic examination of blood, culture Culture has been received in lab and is no growth to date. Routine cultures are held for 5 days. [facility] Work Phone: TROPHSon 03-15-2023 Troponin I High Sensitivity 6.63 ng/L Normal 0.00-54.00 [facility] ([place] Comment on above: Performed By: #### L RADHA SARGENT MDW, CBC, GFR, CMP, TROPHS, ANEU #### [address] [address] UAon 03-15-2023 Color (U) Yellow Normal [facility] ([place] Comment on above: Performed By: #### L RADHA SARGENT MDW, CBC, GFR, CMP, TROPHS, ANEU #### [address] [address] Glucose (U) [Mass/Vol] mg/dL Abnormal Negative [facility] ([place] Comment on above: Performed By: #### L RADHA SARGENT MDW, CBC, GFR, CMP, TROPHS, ANEU #### [address] [address] Ketones Ql (U) Negative Normal Neg-Trace [facility] ([place] Comment on above: Performed By: #### L RADHA SARGENT MDW, CBC, GFR, CMP, TROPHS, ANEU #### [address] [address] UA Appear Clear Normal Clear [facility] ([place] Comment on above: Performed By: #### L RADHA SARGENT MDW, CBC, GFR, CMP, TROPHS, ANEU #### [address] [address] UA Blood Trace Normal Neg-Trace [facility] ([place] Comment on above: Performed By: #### L RADHA SARGENT MDW, CBC, GFR, CMP, TROPHS, ANEU #### [address] [address] UA Leuk Est Negative Normal Negative [facility] ([place] Comment on above: Performed By: #### L RADHA SARGENT MDW, CBC, GFR, CMP, TROPHS, ANEU #### [address] [address] UA Nitrite Negative Normal Negative [facility] ([place] Comment on above: Performed By: #### L RADHA SARGENT MDW, CBC, GFR, CMP, TROPHS, ANEU #### [address] [address] UA pH 7.0 Normal 5.0 - 8.0 [facility] ([place] Comment on above: Performed By: #### L RADHA SARGENT MDW, CBC, GFR, CMP, TROPHS, ANEU #### [address] [address] UA Protein Negative Normal Negative [facility] ([place] Comment on above: Performed By: #### L RADHA SARGENT MDW, CBC, GFR, CMP, TROPHS, ANEU #### [address] [address] UA Spec Grav <=1.005 Abnormal 1.006-1.029 [facility] ([place] Comment on above: Performed By: #### L RADHA SARGENT MDW, CBC, GFR, CMP, TROPHS, ANEU #### [facility] [address] [place] [address] UA Specimen Type Clean Catch Normal [facility] ([place] Comment on above: Performed By: #### L RADHA SARGENT MDW, CBC, GFR, CMP, TROPHS, ANEU #### [facility] [address] [place] [address] UA Urobilinogen 0.2 E.U./dL Normal 0.2-1.0 [facility] ([place] Comment on above: Performed By: #### L RADHA SARGENT MDW, CBC, GFR, CMP, TROPHS, ANEU #### [place] [address] Urobilinogen (U) [Mass/Vol] Negative Normal Neg-Trace [facility] ([place] Comment on above: Performed By: #### L RADHA SARGENT MDW, CBC, GFR, CMP, TROPHS, ANEU #### [place] [address] XR CHEST 1 VIEWon 03-15-2023 XR CHEST [...] 03/15/2023 11:32:58 AM Ordering Provider: PEREZ RIBEIRO [facility] ([place]) Absolute lymphocyte countOrd ered By: Vinh Lomeli on 11-01-2022 Lymphocytes Auto (Unsp spec) [#/Vol] 1.39 10*3/uL 0.83-4.51 [facility] Basophil percentageOrdered B y: Vinh Lomeli on 11-01-2022 Basophils/100 WBC (Bld) 1.1 % 0-[address] [facility] Bilirubin [Mass/Vol] 0.40 mg/dL 0.20-1.00 [facility] Comment on above: For patients on eltr ombopag therapy, use of Dimension [place] TBIL is not recommended. Chloride [Moles/Vol] 101 mmol/L 98-107 [facility] Eosinophils/100 WBC (Bld) 1.1 % 0-5 [facility] Glucose [Mass/Vol] 205 mg/dL 74-106 [facility] Comment on above: Glucose result great er than or equal to 200 mg/dLsuggests DIABETES MELLITUS per A.D.A. criteria. Neutrophils (Bld) [#/Vol] 4.4 10*3/uL 2.0-7.7 [facility] Neutrophils/100 WBC (Bld) 67.9 % 47-70 [facility] Potassium [Moles/Vol] 3.1 mmol/L 3.5-5.1 [facility] Protein [Mass/Vol] 6.5 g/dL 6.4-8.2 [facility] Sodium [Moles/Vol] 141 mmol/L 136-145 [facility] WBC (Bld) [#/Vol] 6.5 10*3/uL 4.4-11.0 [facility] Blood erythrocytes count (nu mber/volume)Ordered By: Vinh Lomeli on 11-01-2022 RBC (Bld) [#/Vol] 4.33 10*6/uL 4.6-6.2 [facility] Blood hemoglobin measurement (mass/volume)Ordered By: Vinh Lomeli on 11-01-2022 Hemoglobin (Bld) [Mass/Vol] 14.1 g/dL 13.0-16.5 [facility] Blood lymphocytes/100 leukoc ytesOrdered By: Vinh Lomeli on 11-01-2022 Lymphocytes/100 WBC (Bld) 21.5 % 19-41 [facility] Blood monocytes/100 leukocyt esOrdered By: Vinh Lomeli on 11-01-2022 Monocytes/100 WBC (Bld) 7.9 % 0-[address] [facility] Blood platelet mean volumeOr dered By: Vinh Lomeli on 11-01-2022 Platelet mean volume (Bld) [Entitic vol] 10.7 fL 6.2-12.0 [facility] Determination of erythrocyte mean corpuscular volume (MCV)Ordered By: Vinh Lomeli on 11-01-2022 MCV (RBC) [Entitic vol] 96.8 fL 80-[address] [facility] Hematocrit Auto (Bld) [Volum e fraction]Ordered By: Vinh Lomeli on 11-01-2022 Hematocrit (Bld) [Volume fraction] 41.9 % 40-54 [facility] Laboratory - Chemistry and C hemistry - challengeOrdered By: Vinh Lomeli on 11-01-2022 ALP [Catalytic activity/Vol] 196 U/L 45-117 [facility] ALT [Catalytic activity/Vol] 189 U/L 16-61 [facility] CO2 [Moles/Vol] 31.0 mmol/L 21.0-32.0 [facility] Globulin (S) [Mass/Vol] 3.5 g/dL 2.2-4.[address] [facility] Lipase [Catalytic activity/Vol] U/L 13-75 [facility] Comment on above: Please note:LIPASE r evised reference range effective 22. New Lipase methodology. Expected to produce lower values than the previous assay method. NEW Reference Range: 13 - 75 U/L Urea nitrogen/Creatinine [Mass ratio] 5.0 mg/mg 10-20 [facility] Laboratory - Hematology and Cell countsOrdered By: Vinh Lomeli on 11-01-2022 Erythrocyte distribution width (RBC) [Entitic vol] 45.1 fL 35.1-43.9 [facility] Erythrocyte distribution width (RBC) [Ratio] 12.5 % 11.6-14.6 [facility] Immature granulocytes/100 WBC (Bld) 0.500 % 0.0-0.9 [facility] Comment on above: IG% - Immature Granu locytes (promyelocytes, myelocytes and metamyelocytes) > 1% indicates that a LEFT SHIFT is Present. MCH (RBC) [Entitic mass] 32.6 pg 27.0-32.0 [facility] Nucleated RBC/100 WBC (Bld) [Ratio] 0 % 0-5 [facility] MCHC Auto (RBC) [Mass/Vol]Or dered By: Vinh Lomeli on 11-01-2022 MCHC (RBC) [Mass/Vol] 33.7 g/dL 32-36 [facility] No Panel InformationOrdered By: Vinh Lomeli on 11-01-2022 Estimated Creatinine Clearance Calc 70.71 ml/min [facility] Estimated GFR (MDRD) Amer 97 mL/min >60 [facility] Comment on above: GFR Calc Estimated GFR (MDRD) Non-Af Amer 80 mL/min >60 [facility] Comment on above: Non- GFR Calc Platelets bldOrdered By: Jasvir Lomeli on 11-01-2022 Platelets (Bld) [#/Vol] 151 10*3/uL 150-450 [facility] Serum or plasma albumin luciana urement (mass/volume)Ordered By: Vinh Lomeli on 11-01-2022 Albumin [Mass/Vol] 3.0 g/dL 3.2-5.0 [facility] Serum or plasma albumin/glob ulin mass ratioOrdered By: Vinh Lomeli on 11-01-2022 Albumin/Globulin [Mass ratio] 0.9 {ratio} 0.9-2.4 [facility] Serum or plasma calcium luciana urement (mass/volume)Ordered By: Vinh Lomeli on 11-01-2022 Calcium [Mass/Vol] 8.5 mg/dL 8.5-10.1 [facility] Serum or plasma creatinine m easurement (mass/volume)Ordered By: Vinh Lomeli on 11-01-2022 Creatinine [Mass/Vol] 1.01 mg/dL 0.70-1.30 [facility] Comment on above: The validity of the calculated GFR & GFRAA in patients over 70 years has not been determined. Clinical correlation is essential. Serum or plasma urea nitroge n measurement (mass/volume)Ordered By: Vinh Lomeli on 11-01-2022 Urea nitrogen [Mass/Vol] 5 mg/dL 7-18 [facility] Thin prep Papanicolaou smear with manual screeningOrdered By: Vinh Lomeli on 11-01-2022 Thin prep Papanicolaou smear with manual screening 434 U/L 15-37 [facility] Thin prep Papanicolaou smear with manual screening 9 5-15 [facility] .Auto Diffon 10-15-2022 Basophil, Absolute 0.1 10 3/mcL Normal 0.0-0.2 [facility] ([place]) Comment on above: Performed By: #### L RADHA SARGENT MDW, CBC, GFR, CMP, TROPHS, ANEU #### [address] [address] Basophils/100 WBC (Bld) 0.8 % Normal 0.0-2.5 [facility] ([place]) Comment on above: Performed By: #### L RADHA SARGENT MDW, CBC, GFR, CMP, TROPHS, ANEU #### [address] [address] Eosinophil, Absolute 0.1 10 3/mcL Normal 0.0-0.4 [facility] ([place]) Comment on above: Performed By: #### L RADHA SARGENT MDW, CBC, GFR, CMP, TROPHS, ANEU #### [address] [address] Eosinophils/100 WBC (Bld) 1.7 % Normal 0.0-7.0 [facility] ([place]) Comment on above: Performed By: #### RADHA COSTA MDW, CBC, GFR, CMP, TROPHS, ANEU #### [address] [address] Lymphocyte, Absolute 1.6 10 3/mcL Normal 0.8-3.9 [facility] ([place]) Comment on above: Performed By: #### L RADHA SARGENT MDW, CBC, GFR, CMP, TROPHS, ANEU #### [address] [address] Lymphocytes/100 WBC (Bld) 18.8 % Normal 10.0-50.0 [facility] ([place]) Comment on above: Performed By: #### L RADHA SARGENT MDW, CBC, GFR, CMP, TROPHS, ANEU #### [address] [address] Monocyte, Absolute 0.8 10 3/mcL Normal 0.2-1.0 [facility] ([place]) Comment on above: Performed By: #### L BELLE, RADHA, W, CBC, GFR, CMP, TROPHS, ANEU #### [address] [address] Monocytes/100 WBC (Bld) 9.4 % Normal 1.7-13.0 A [facility] ([place]) Comment on above: Performed By: #### L RADHA SARGENT MDW, CBC, GFR, CMP, TROPHS, ANEU #### [address] [address] Neutrophils/100 WBC (Bld) 69.3 % Normal 37.0-80.0 [facility] ([place]) Comment on above: Performed By: #### L RADHA SARGENT MDW, CBC, GFR, CMP, TROPHS, ANEU #### [address] [address] .GFRon 10-15-2022 GFR 79 ml/min/1.73sqm Normal [facility] ([place]) Comment on above: Result Comment: GFR Population [...] mL/min/1.73 square meters Performed By: #### L BELLE, RADHA, W, CBC, GFR, CMP, TROPHS, ANEU #### [address] [address] GFR Non- 66 ml/min/1.73sqm Normal [facility] ([place]) Comment on above: Result Comment: GFR Population [...] MDW, CBC, GFR, CMP, TROPHS, ANEU #### [place] [address] .NEUABSon 10-15-2022 Neutrophil, Absolute 5.9 10 3/mcL Normal 2.9-6.2 [facility] ([place]) Comment on above: Performed By: #### L RADHA SARGENT MDW, CBC, GFR, CMP, TROPHS, ANEU #### [place] [address] A1Con 10-15-2022 HbA1c (Bld) [Mass fraction] 7.9 % High 4.3-6.4 [facility] ([place]) Comment on above: Performed By: #### RADHA COSTA MDW, CBC, GFR, CMP, TROPHS, ANEU #### [place] [address] CBCon 10-15-2022 Erythrocyte distribution width (RBC) [Ratio] 13.4 % Normal 11.5-14.5 [facility] ([place]) Comment on above: Performed By: #### RADHA COSTA MDW, CBC, GFR, CMP, TROPHS, ANEU #### [place] [address] Hematocrit (Bld) [Volume fraction] 42.6 % Normal 42.0-52.0 [facility] ([place] Comment on above: Performed By: #### L RADHA SARGENT MDW, CBC, GFR, CMP, TROPHS, ANEU #### [place] [address] Hgb 14.0 G/dL Normal 14.0-18.0 [facility] ([place] Comment on above: Performed By: #### L RADHA SARGENT MDW, CBC, GFR, CMP, TROPHS, ANEU #### [place] [address] MCH (RBC) [Entitic mass] 33.0 pg High 27.0-31.2 [facility] ([place] Comment on above: Performed By: #### L RADHA SARGENT MDW, CBC, GFR, CMP, TROPHS, ANEU #### [place] [address] MCHC 33.0 G/dL Normal 31.8-35.4 [facility] ([place] Comment on above: Performed By: #### L RADHA SARGENT MDW, CBC, GFR, CMP, TROPHS, ANEU #### [place] [address] MCV (RBC) [Entitic vol] 100.1 fL High 80.0-94.0 A [facility] ([place]) Comment on above: Performed By: #### L RADHA SARGENT MDW, CBC, GFR, CMP, TROPHS, ANEU #### [place] [address] Platelet 184 10 3/mcL Normal 130-400 [facility] ([place]) Comment on above: Performed By: #### L RADHA SARGENT MDW, CBC, GFR, CMP, TROPHS, ANEU #### [place] [address] Platelet mean volume (Bld) [Entitic vol] 10.1 fL Normal 7.4-10.4 [facility] ([place] Comment on above: Performed By: #### L RADHA SARGENT MDW, CBC, GFR, CMP, TROPHS, ANEU #### [address] [address] RBC 4.26 10 6/mcL Normal 4.04-6.13 [facility] ([place] Comment on above: Performed By: #### L RADHA SARGENT MDW, CBC, GFR, CMP, TROPHS, ANEU #### [address] [address] WBC 8.5 10 3/mcL Normal 4.6-10.8 [facility] ([place] Comment on above: Performed By: #### L RADHA SARGENT MDW, CBC, GFR, CMP, TROPHS, ANEU #### [address] [address] CMPon 10-15-2022 Albumin Level 3.7 G/dL Normal 3.4-4.8 [facility] ([place] Comment on above: Performed By: #### L RADHA SARGENT MDW, CBC, GFR, CMP, TROPHS, ANEU #### [place] [id number] Albumin/Globulin [Mass ratio] 1.0 {ratio} Low 1.1-2.5 [facility] ([place] Comment on above: Performed By: #### L RADHA SARGENT MDW, CBC, GFR, CMP, TROPHS, ANEU #### [address] [address] ALP [Catalytic activity/Vol] 148 U/L High 40-135 [facility] ([place] Comment on above: Performed By: #### L RADHA SARGENT MDW, CBC, GFR, CMP, TROPHS, ANEU #### [address] [address] ALT [Catalytic activity/Vol] 49 U/L Normal 16-63 [facility] ([place] Comment on above: Performed By: #### L RADHA ASRGENT MDW, CBC, GFR, CMP, TROPHS, ANEU #### [address] [address] AST [Catalytic activity/Vol] 53 U/L High 10-40 [facility] ([place] Comment on above: Performed By: #### L RADHA SARGENT MDW, CBC, GFR, CMP, TROPHS, ANEU #### [address] [address] Bili Total 0.4 mg/dL Normal 0.2-1.0 [facility] ([place]) Comment on above: Result Comment: Use of this assay is not recommended for patients undergoing treatment with eltrombopag due to the potential for falsely elevated results. Performed By: #### L RADHA SARGENT MDW, CBC, GFR, CMP, TROPHS, ANEU #### [place] [id number] BUN/Creatinine Ratio 10 ratio Normal 7-27 [facility] ([place]) Comment on above: Performed By: #### L RADHA SARGENT MDW, CBC, GFR, CMP, TROPHS, ANEU #### [address] [address] Calcium [Mass/Vol] 9.3 mg/dL Normal 8.4-10.2 [facility] ([place]) Comment on above: Performed By: #### L RADHA SARGENT MDW, CBC, GFR, CMP, TROPHS, ANEU #### [address] [address] Chloride [Moles/Vol] 104 mmol/L Normal 98-107 [facility] ([place]) Comment on above: Performed By: #### L RADHA SARGENT MDW, CBC, GFR, CMP, TROPHS, ANEU #### [address] [address] CO2 [Moles/Vol] 23 mmol/L Normal 23-31 [facility] ([place] Comment on above: Performed By: #### L RADHA SARGENT MDW, CBC, GFR, CMP, TROPHS, ANEU #### [address] [address] Creatinine [Mass/Vol] 1.14 mg/dL Normal 0.70-1.30 [facility] ([place] Comment on above: Performed By: #### L RADHA SARGENT MDW, CBC, GFR, CMP, TROPHS, ANEU #### [address] [address] Electrolyte Balance 11.0 mEq/L Normal 4.0-15.0 [facility] ([place]) Comment on above: Performed By: #### L RADHA SARGENT MDW, CBC, GFR, CMP, TROPHS, ANEU #### [address] [address] Globulin 3.6 G/dL Normal [facility] ([place] Comment on above: Performed By: #### L RADHA SARGENT MDW, CBC, GFR, CMP, TROPHS, ANEU #### [address] [address] Glucose [Mass/Vol] 205 mg/dL High 80-115 [facility] ([place] Comment on above: Performed By: #### L RADHA SARGENT MDW, CBC, GFR, CMP, TROPHS, ANEU #### [address] [address] Potassium [Moles/Vol] 5.0 mmol/L Normal 3.5-5.1 [facility] ([place] Comment on above: Performed By: #### L RADHA SARGENT MDW, CBC, GFR, CMP, TROPHS, ANEU #### [address] [address] Sodium [Moles/Vol] 138 mmol/L Normal 136-145 [facility] ([place]) Comment on above: Performed By: #### L RADHA SARGENT MDW, CBC, GFR, CMP, TROPHS, ANEU #### [address] [address] Total Protein 7.3 G/dL Normal 6.4-8.2 [facility] ([place] Comment on above: Performed By: #### L RADHA SARGENT MDW, CBC, GFR, CMP, TROPHS, ANEU #### [address] [address] Urea nitrogen [Mass/Vol] 11 mg/dL Normal 7-18 [facility] ([place] Comment on above: Performed By: #### L RADHA SARGENT MDW, CBC, GFR, CMP, TROPHS, ANEU #### [address] [address] CPEPon 10-15-2022 C-Peptide 1.09 ng/mL Normal 0.81-3.85 [facility] ([place]) Comment on above: Order Comment: +/-28 days Performed By: #### L RADHA SARGENT MDW, CBC, GFR, CMP, TROPHS, ANEU #### [place] [address] LABORATORYOrdered By: Mehran Lee on 10-15-2022 Blood Glucose Frequency Other: Multiple times per day [facility] Work Phone: LIPIDon 10-15-2022 Cholesterol [Mass/Vol] 116 mg/dL Normal 0-200 [facility] ([place]) Comment on above: Result Comment: Chol esterol Reference Interval: Less than 200 Desirable 200-239 Borderline high risk 240 and above High risk Performed By: #### L RADHA SARGENT MDW, CBC, GFR, CMP, TROPHS, ANEU #### [place] [address] Cholesterol in HDL [Mass/Vol] 40 mg/dL Normal 40-60 [facility] ([place] Comment on above: Performed By: #### L RADHA SARGENT MDW, CBC, GFR, CMP, TROPHS, ANEU #### [place] [address] Cholesterol in LDL [Mass/Vol] 59 mg/dL Normal 0-130 [facility] ([place]) Comment on above: Performed By: #### L RADHA SARGENT MDW, CBC, GFR, CMP, TROPHS, ANEU #### [address] [address] Triglyceride [Mass/Vol] 83 mg/dL Normal 0-150 A [facility] ([place]) Comment on above: Result Comment: Trig lyceride Reference Interval: Less than 150 Normal 150-199 Borderline high risk 200-499 High risk 500 or higher Very high risk Performed By: #### L RADHA SARGENT MDW, CBC, GFR, CMP, TROPHS, ANEU #### [address] [address] VIDHon 10-15-2022 Vit. D 25-Hydroxy 37.4 ng/mL Normal [facility] ([place]) Comment on above: Result Comment: Inte rpretive Values Based on Total 25(OH) Vitamin D: Deficient <20 ng/mL Insufficient 20 - <30 ng/mL Sufficient 30-100 ng/mL Performed By: #### L BELLE, RADHA, W, CBC, GFR, CMP, TROPHS, ANEU #### [address] [address] .Auto Diffon 10-05-2022 Basophil, Absolute 0.1 10 3/mcL Normal 0.0-0.2 [facility] ([place]) Comment on above: Performed By: #### L RADHA SARGENT MDW, CBC, GFR, CMP, TROPHS, ANEU #### [address] [address] Basophils/100 WBC (Bld) 1.2 % Normal 0.0-2.5 A [facility] ([place]) Comment on above: Performed By: #### L RADHA SARGENT, W, CBC, GFR, CMP, TROPHS, ANEU #### [address] [address] Eosinophil, Absolute 0.2 10 3/mcL Normal 0.0-0.4 [facility] ([place]) Comment on above: Performed By: #### L RADHA SARGENT, W, CBC, GFR, CMP, TROPHS, ANEU #### [address] [address] Eosinophils/100 WBC (Bld) 2.5 % Normal 0.0-7.0 [facility] ([place]) Comment on above: Performed By: #### L RADHA SARGENT, W, CBC, GFR, CMP, TROPHS, ANEU #### [address] [address] Lymphocyte, Absolute 1.4 10 3/mcL Normal 0.8-3.9 [facility] ([place]) Comment on above: Performed By: #### L BELLE, RADHA, W, CBC, GFR, CMP, TROPHS, ANEU #### [address] [address] Lymphocytes/100 WBC (Bld) 18.6 % Normal 10.0-50.0 [facility] ([place]) Comment on above: Performed By: #### L RADHA SARGENT MDW, CBC, GFR, CMP, TROPHS, ANEU #### [address] [address] Monocyte, Absolute 0.6 10 3/mcL Normal 0.2-1.0 [facility] ([place]) Comment on above: Performed By: #### L RADHA SARGENT MDW, CBC, GFR, CMP, TROPHS, ANEU #### [address] [address] Monocytes/100 WBC (Bld) 7.8 % Normal 1.7-13.0 A [facility] ([place]) Comment on above: Performed By: #### L RADHA SARGENT MDW, CBC, GFR, CMP, TROPHS, ANEU #### [address] [address] Neutrophils/100 WBC (Bld) 69.9 % Normal 37.0-80.0 [facility] ([place]) Comment on above: Performed By: #### L RADHA SARGENT MDW, CBC, GFR, CMP, TROPHS, ANEU #### [address] [address] .GFRon 10-05-2022 GFR Non- 69 ml/min/1.73sqm Normal [facility] ([place]) Comment on above: Result Comment: GFR [...] MDW, CBC, GFR, CMP, TROPHS, ANEU #### [address] [address] GFR 84 ml/min/1.73sqm Normal [facility] ([place] Comment on above: Result Comment: GFR Population [...] MDW, CBC, GFR, CMP, TROPHS, ANEU #### [address] [address] .MDWon 10-05-2022 Monocyte Distribution Width 16.07 Normal 0.00-20.00 [facility] ([place]) Comment on above: Result Comment: For ED adult patients suspected of sepsis, MDW<=20.0 does not rule out sepsis or risk of sepsis Performed By: #### L RADHA SARGENT MDW, CBC, GFR, CMP, TROPHS, ANEU #### [address] [address] .NEUABSon 10-05-2022 Neutrophil, Absolute 5.4 10 3/mcL Normal 2.9-6.2 [facility] ([place] Comment on above: Performed By: #### L RADHA SARGENT MDW, CBC, GFR, CMP, TROPHS, ANEU #### [address] [address] CBCon 10-05-2022 Erythrocyte distribution width (RBC) [Ratio] 13.6 % Normal 11.5-14.5 [facility] ([place] Comment on above: Performed By: #### L RADHA SARGENT MDW, CBC, GFR, CMP, TROPHS, ANEU #### [place] [address] Hematocrit (Bld) [Volume fraction] 44.2 % Normal 42.0-52.0 [facility] ([place] Comment on above: Performed By: #### L BELLE, RADHA, W, CBC, GFR, CMP, TROPHS, ANEU #### [place] [id number] Hgb 14.9 G/dL Normal 14.0-18.0 [facility] ([place] Comment on above: Performed By: #### L RADHA SARGENT MDW, CBC, GFR, CMP, TROPHS, ANEU #### [place] [address] MCH (RBC) [Entitic mass] 33.5 pg High 27.0-31.2 [facility] ([place] Comment on above: Performed By: #### L RADHA SARGENT, KEIKO, CBC, GFR, CMP, TROPHS, ANEU #### [place] [address] MCHC 33.6 G/dL Normal 31.8-35.4 [facility] ([place] Comment on above: Performed By: #### L RADHA SARGENT MDW, CBC, GFR, CMP, TROPHS, ANEU #### [place] [address] MCV (RBC) [Entitic vol] 99.6 fL High 80.0-94.0 [facility] ([place]) Comment on above: Performed By: #### L RADHA SARGENT, KEIKO, CBC, GFR, CMP, TROPHS, ANEU #### [place] [address] Platelet 202 10 3/mcL Normal 130-400 [facility] ([place]) Comment on above: Performed By: #### L BELLE, RADHA, W, CBC, GFR, CMP, TROPHS, ANEU #### [place] [address] Platelet mean volume (Bld) [Entitic vol] 9.2 fL Normal 7.4-10.4 [facility] ([place] Comment on above: Performed By: #### L RADHA SARGENT MDW, CBC, GFR, CMP, TROPHS, ANEU #### [address] [address] RBC 4.44 10 6/mcL Normal 4.04-6.13 [facility] ([place] Comment on above: Performed By: #### L RADHA SARGENT MDW, CBC, GFR, CMP, TROPHS, ANEU #### [place] [address] WBC 7.7 10 3/mcL Normal 4.6-10.8 [facility] ([place] Comment on above: Performed By: #### L RADHA SARGENT MDW, CBC, GFR, CMP, TROPHS, ANEU #### [place] [address] CMPon 10-05-2022 Albumin Level 3.6 G/dL Normal 3.4-4.8 [facility] ([place] Comment on above: Performed By: #### L RADHA SARGENT MDW, CBC, GFR, CMP, TROPHS, ANEU #### [place] [address] Albumin/Globulin [Mass ratio] 1.0 {ratio} Low 1.1-2.5 [facility] ([place] Comment on above: Performed By: #### L RADHA SARGENT MDW, CBC, GFR, CMP, TROPHS, ANEU #### [place] [id number] ALP [Catalytic activity/Vol] 144 U/L High 40-135 [facility] ([place] Comment on above: Performed By: #### L RADHA SARGENT MDW, CBC, GFR, CMP, TROPHS, ANEU #### [address] [address] ALT [Catalytic activity/Vol] 65 U/L High 16-63 [facility] ([place] Comment on above: Performed By: #### L RADHA SARGENT MDW, CBC, GFR, CMP, TROPHS, ANEU #### [address] [address] AST [Catalytic activity/Vol] 59 U/L High 10-40 [facility] ([place] Comment on above: Performed By: #### L RADHA SARGENT MDW, CBC, GFR, CMP, TROPHS, ANEU #### [address] [address] Bili Total 0.3 mg/dL Normal 0.2-1.0 [facility] ([place] Comment on above: Result Comment: Use of this assay is not recommended for patients undergoing treatment with eltrombopag due to the potential for falsely elevated results. Performed By: #### L RADHA SARGENT MDW, CBC, GFR, CMP, TROPHS, ANEU #### [address] [address] BUN/Creatinine Ratio 7 ratio Normal 7-27 [facility] ([place]) Comment on above: Performed By: #### L RADHA SARGENT MDW, CBC, GFR, CMP, TROPHS, ANEU #### [address] [address] Calcium [Mass/Vol] 9.1 mg/dL Normal 8.4-10.2 [facility] ([place]) Comment on above: Performed By: #### L RADHA SARGENT MDW, CBC, GFR, CMP, TROPHS, ANEU #### [address] [address] Chloride [Moles/Vol] 103 mmol/L Normal 98-107 [facility] ([place]) Comment on above: Performed By: #### L RADHA SARGENT MDW, CBC, GFR, CMP, TROPHS, ANEU #### [address] [address] CO2 [Moles/Vol] 24 mmol/L Normal 23-31 [facility] ([place] Comment on above: Performed By: #### L RADHA SARGENT MDW, CBC, GFR, CMP, TROPHS, ANEU #### [address] [address] Creatinine [Mass/Vol] 1.09 mg/dL Normal 0.70-1.30 [facility] ([place] Comment on above: Performed By: #### L RADHA SARGENT MDW, CBC, GFR, CMP, TROPHS, ANEU #### [address] [address] Electrolyte Balance 11.0 mEq/L Normal 4.0-15.0 [facility] ([place]) Comment on above: Performed By: #### L RADHA SARGENT MDW, CBC, GFR, CMP, TROPHS, ANEU #### [address] [address] Globulin 3.6 G/dL Normal [facility] ([place] Comment on above: Performed By: #### L RADHA SARGENT MDW, CBC, GFR, CMP, TROPHS, ANEU #### [address] [address] Glucose [Mass/Vol] 257 mg/dL High 80-115 [facility] ([place]) Comment on above: Performed By: #### L RADHA SARGENT MDW, CBC, GFR, CMP, TROPHS, ANEU #### [address] [address] Potassium [Moles/Vol] 4.3 mmol/L Normal 3.5-5.1 [facility] ([place] Comment on above: Performed By: #### L RADHA SARGENT MDW, CBC, GFR, CMP, TROPHS, ANEU #### [address] [address] Sodium [Moles/Vol] 138 mmol/L Normal 136-145 [facility] ([place]) Comment on above: Performed By: #### L RADHA SARGENT MDW, CBC, GFR, CMP, TROPHS, ANEU #### [address] [address] Total Protein 7.2 G/dL Normal 6.4-8.2 [facility] ([place] Comment on above: Performed By: #### L RADHA SARGENT MDW, CBC, GFR, CMP, TROPHS, ANEU #### [address] [address] Urea nitrogen [Mass/Vol] 8 mg/dL Normal 7-18 [facility] ([place] Comment on above: Performed By: #### L BELLE, KEIKO GARCIA, CBC, GFR, CMP, TROPHS, ANEU #### [facility] [address] [place] [id number] ANGIO CHEST W+W/O CONTRAS T DISSECTIONon [...] Date: 10/05/2022 3:45:22 PM Ordering [facility] LABORATORYOrdered By: SYSTEM SYSTEM on 10-05-2022 Albumin [...] LIPon 10-05-2022 Lipase Level <10 Low 16-77 [facility] ([place]) Comment on above: Performed By: #### L RADHA SARGENT MDW, CBC, GFR, CMP, TROPHS, ANEU #### [address] [address] TROPHSon 10-05-2022 Troponin I High Sensitivity 30.7 ng/L Normal 0.0-76.2 [facility] ([place] Comment on above: Performed By: #### L RADHA SARGENT MDW, CBC, GFR, CMP, TROPHS, ANEU #### [address] [address] XR UPPER GIon 09-22-2022 XR UPPER GI [...] Date: 09/22/2022 3:40:06 PM Ordering Provider: ANDREAS PATHAK [facility] ([place]) LABORATORYOrdered By: Samantha panda on 09-17-2022 Glucose [Mass/Vol] 257 mg/dL High 82 - 115 mg/dL [facility] Work Phone: HbA1c (Bld) [Mass fraction] 8.5 % [facility] Work Phone: Lab Performed By Samantha Huber PharmD [facility] Work Phone: Lab Performing Location [facility] Work Phone: Laboratory - Chemistry and C hemistry - challengeOrdered By: Ti Robbins on 08-15-2022 Glucose [Mass/Vol] 353 mg/dL High 82 - 115 mg/dL [facility] Work Phone: Glucose Glucometer (BldC) [M ass/Vol]Ordered By: Sinan Abarca on 07-21-2022 Glucose [Mass/Vol] 166 mg/dL 74-106 [facility] Comment on above: MANAGEMENT OF PATIEN T CARE PER NURSING PROTOCOL Absolute lymphocyte countOrd ered By: Sinan Abarca on 07-20-2022 Lymphocytes Auto (Unsp spec) [#/Vol] 1.83 10*3/uL 0.83-4.51 [facility] Basophil percentageOrdered B y: Sinan Abarca on 07-20-2022 Potassium [Moles/Vol] 3.2 mmol/L 3.5-5.1 [facility] Basophil percentage 0 SEEN /hpf 0-5 [facility] Basophils/100 WBC (Bld) 2.1 % 0-[address] [facility] Bilirubin [Mass/Vol] 0.20 mg/dL 0.20-1.00 [facility] Comment on above: For patients on eltr ombopag therapy, use of Dimension [place] TBIL is not recommended. Chloride [Moles/Vol] 97 mmol/L 98-107 [facility] Eosinophils/100 WBC (Bld) 4.2 % 0-5 [facility] Glucose [Mass/Vol] 381 mg/dL 74-106 [facility] Comment on above: Glucose result great er than or equal to 200 mg/dLsuggests DIABETES MELLITUS per A.D.A. criteria. Neutrophils (Bld) [#/Vol] 2.1 10*3/uL 2.0-7.7 [facility] Neutrophils/100 WBC (Bld) 43.9 % 47-70 [facility] Protein [Mass/Vol] 6.3 g/dL 6.4-8.2 [facility] Sodium [Moles/Vol] 144 mmol/L 136-145 [facility] WBC (Bld) [#/Vol] 4.7 10*3/uL 4.4-11.0 [facility] Bilirubin Test strip Ql (U)O rdered By: Sinan Abarca on 07-20-2022 Bilirubin Ql (U) Negative Negative [facility] Blood erythrocytes count (nu mber/volume)Ordered By: Sinan Abarca on 07-20-2022 RBC (Bld) [#/Vol] 3.63 10*6/uL 4.6-6.2 [facility] Blood hemoglobin measurement (mass/volume)Ordered By: Sinan Abarca on 07-20-2022 Hemoglobin (Bld) [Mass/Vol] 12.4 g/dL 13.0-16.5 [facility] Blood lymphocytes/100 leukoc ytesOrdered By: Sinan Abarca on 07-20-2022 Lymphocytes/100 WBC (Bld) 38.6 % 19-41 [facility] Blood monocytes/100 leukocyt esOrdered By: Sinan Abarca on 07-20-2022 Monocytes/100 WBC (Bld) 10.8 % 0-[address] [facility] Blood platelet mean volumeOr dered By: Sinan Abarca on 07-20-2022 Platelet mean volume (Bld) [Entitic vol] 10.0 fL 6.2-12.0 [facility] Determination of erythrocyte mean corpuscular volume (MCV)Ordered By: Sinan Abarca on 07-20-2022 MCV (RBC) [Entitic vol] 103.9 fL 80-[address] [facility] Hematocrit Auto (Bld) [Volum e fraction]Ordered By: Sinan Abarca on 07-20-2022 Hematocrit (Bld) [Volume fraction] 37.7 % 40-54 [facility] Ketones Test strip Ql (U)Ord ered By: Sinan Abarca on 07-20-2022 Ketones Ql (U) Negative Negative [facility] Laboratory - Chemistry and C hemistry - challengeOrdered By: Sinan Abarca on 07-20-2022 ALP [Catalytic activity/Vol] 120 U/L 45-117 [facility] ALT [Catalytic activity/Vol] 30 U/L 16-61 [facility] CO2 [Moles/Vol] 41.0 mmol/L 21.0-32.0 [facility] Globulin (S) [Mass/Vol] 3.2 g/dL 2.2-4.2 [facility] Magnesium [Mass/Vol] 2.3 mg/dL 1.6-2.6 [facility] Urea nitrogen/Creatinine [Mass ratio] 7.5 mg/mg 10-20 [facility] Laboratory - Hematology and Cell countsOrdered By: Sinan Abarca on 07-20-2022 Erythrocyte distribution width (RBC) [Entitic vol] 56.5 fL 35.1-43.9 [facility] Erythrocyte distribution width (RBC) [Ratio] 14.6 % 11.6-14.6 [facility] Immature granulocytes/100 WBC (Bld) 0.400 % 0.0-0.9 [facility] Comment on above: IG% - Immature Granu locytes (promyelocytes, myelocytes and metamyelocytes) > 1% indicates that a LEFT SHIFT is Present. MCH (RBC) [Entitic mass] 34.2 pg 27.0-32.0 [facility] Nucleated RBC/100 WBC (Bld) [Ratio] 0 % 0-5 [facility] MCHC Auto (RBC) [Mass/Vol]Or dered By: Sinan Abarca on 07-20-2022 MCHC (RBC) [Mass/Vol] 32.9 g/dL 32-36 [facility] Mucus LM Ql (Urine sed)Order ed By: Sinan Abarca on 07-20-2022 Mucus Ql (Urine sed) 0 SEEN /hpf [facility] Nitrite Test strip Ql (U)Ord ered By: Sinan Abarca on 07-20-2022 Nitrite Ql (U) Negative Negative [facility] No Panel InformationOrdered By: Sinan Abarca on 07-20-2022 Estimated Creatinine Clearance Calc 74.19 ml/min [facility] Estimated GFR (MDRD) Amer 92 mL/min >60 [facility] Comment on above: GFR Calc Estimated GFR (MDRD) Non-Af Amer 76 mL/min >60 [facility] Comment on above: Non- GFR Calc Ethyl Alcohol Level 292.0 mg/dL [facility] Comment on above: Critical Result(s) C [...] 07-20-2022 Platelets (Bld) [#/Vol] 241 10*3/uL 150-450 [facility] Protein Test strip Ql (U)Ord ered By: Sinan Abarca on 07-20-2022 Protein Ql (U) Negative Negative [facility] Serum or plasma acetone luciana urement (mass/volume)Ordered By: Sinan Abarca on 07-20-2022 Acetone [Mass/Vol] Negative NEG [facility] Serum or plasma albumin luciana urement (mass/volume)Ordered By: Sinan Abarca on 07-20-2022 Albumin [Mass/Vol] 3.1 g/dL 3.2-5.0 [facility] Serum or plasma albumin/glob ulin mass ratioOrdered By: Sinan Abarca on 07-20-2022 Albumin/Globulin [Mass ratio] 1.0 {ratio} 0.9-2.4 [facility] Serum or plasma calcium luciana urement (mass/volume)Ordered By: Sinan Abarca on 07-20-2022 Calcium [Mass/Vol] 8.3 mg/dL 8.5-10.1 [facility] Serum or plasma creatinine m easurement (mass/volume)Ordered By: Sinan Abarca on 07-20-2022 Creatinine [Mass/Vol] 1.06 mg/dL 0.70-1.30 [facility] Comment on above: The validity of the calculated GFR & GFRAA in patients over 70 years has not been determined. Clinical correlation is essential. Serum or plasma urea nitroge n measurement (mass/volume)Ordered By: Sinan Abarca on 07-20-2022 Urea nitrogen [Mass/Vol] 8 mg/dL 7-18 [facility] Squamous epithelial cells de tection in urine sediment by light microscopyOrdered By: Sinan Abarca on 07-20-2022 Epithelial cells.squamous LM Ql (Urine sed) 0 SEEN /hpf 0-5 [facility] Thin prep Papanicolaou smear with manual screeningOrdered By: Sinan Abarca on 07-20-2022 Thin prep Papanicolaou smear with manual screening 50 U/L 15-37 [facility] Thin prep Papanicolaou smear with manual screening 6 5-15 [facility] Urine blood detectionOrdered By: Sinan Abarca on 07-20-2022 RBC Ql (U) Negative Negative [facility] RBC Ql (U) 0 SEEN /hpf 0-5 [facility] Urine clarityOrdered By: Ramon Abarac on 07-20-2022 Clarity (U) Clear Clear [facility] Urine color determinationOrd ered By: Sinan Abarca on 07-20-2022 Color (U) Straw Yellow [facility] Urine glucose detectionOrder ed By: Sinan Abarca on 07-20-2022 Glucose Ql (U) 1000 mg/dl Normal [facility] Urine leukocyte esterase det ection by dipstickOrdered By: Sinan Abarca on 07-20-2022 Leukocyte esterase Test strip Ql (U) Negative Negative [facility] Urine pHOrdered By: Sinan gonzalez on 07-20-2022 pH (U) 8.0 [pH] 5.0 - 8.0 [facility] Urine sediment bacteria coun t by microscopy (number/high power field)Ordered By: Sinan Abarca on 07-20-2022 Bacteria LM.HPF (Urine sed) [#/Area] 0 /[HPF] None Seen [facility] Urine specific gravity measu rementOrdered By: Sinan Abarca on 07-20-2022 Specific gravity (U) [Rel density] 1.010 1.002-1.030 [facility] Urobilinogen Auto test strip Ql (U)Ordered By: Sinan Abarca on 07-20-2022 Urobilinogen Ql (U) Normal mg/dl Normal [facility] LABORATORYOrdered By: Cyndi Moya on 07-02-2022 [...] 07-02-2022 U Creatinine 23.2 mg/dL Low 39.0-259.0 [facility] ([place]) Comment on above: Performed By: #### M ALBR #### [address] [place] [address] U Microalb 6479 mcg/dL Normal [facility] ([place] Comment on above: Performed By: #### M ALBR #### Elias [address] [address] U Ratio Alb/Cre 279 mcg/mg High 0-30 [facility] ([place] Comment on above: Performed By: #### M ALBR #### [place] [address] [address] RENINDon 06-22-2022 Direct Renin 9.5 pg/mL Normal 3.6-81.6 [facility] ([place]) Comment on above: Result Comment: A ra [...] Age >=41 years: 2.5-45.1 pg/mL Performed By: [facility] [address] [place] [address] Quality Control Associate: Jaya Jones III, M.D. CLIA#: [id number] Performed By: #### L RADHA SARGENT MDW, CBC, GFR, CMP, TROPHS, ANEU #### [place] [address] Patient Upright or Supine Upright Normal [facility] ([place]) Comment on above: Result Comment: Perf ormed By: [facility] [address] [place] [id number] Quality Control Associate: Jaya Jones III, M.D. CLIA#: [id number] Performed By: #### L RADHA SARGENT MDW, CBC, GFR, CMP, TROPHS, ANEU #### [address] [address] PTHon 06-20-2022 PTH, Intact 135.8 pg/mL High 18.5-88.0 [facility] ([place]) Comment on above: Performed By: #### L BELLE, ALVAIFF, MDW, CBC, GFR, CMP, TROPHS, ANEU #### [address] [address] .Auto Diffon 06-19-2022 Basophil, Absolute 0.0 10 3/mcL Normal 0.0-0.2 [facility] ([place]) Comment on above: Performed By: #### L AC, ADIFF, MDW, CBC, GFR, CMP, TROPHS, ANEU #### [address] [address] Basophils/100 WBC (Bld) 0.3 % Normal 0.0-2.5 A [facility] ([place]) Comment on above: Performed By: #### L AC, ADIFF, MDW, CBC, GFR, CMP, TROPHS, ANEU #### [address] [address] Eosinophil, Absolute 0.1 10 3/mcL Normal 0.0-0.4 [facility] ([place]) Comment on above: Performed By: #### L AC, ADIFF, MDW, CBC, GFR, CMP, TROPHS, ANEU #### [address] [address] Eosinophils/100 WBC (Bld) 0.8 % Normal 0.0-7.0 [facility] ([place]) Comment on above: Performed By: #### L AC, ADIFF, MDW, CBC, GFR, CMP, TROPHS, ANEU #### [address] [address] Lymphocyte, Absolute 1.2 10 3/mcL Normal 0.8-3.9 [facility] ([place]) Comment on above: Performed By: #### L AC, ADIFF, MDW, CBC, GFR, CMP, TROPHS, ANEU #### [address] [address] Lymphocytes/100 WBC (Bld) 17.6 % Normal 10.0-50.0 [facility] ([place]) Comment on above: Performed By: #### L AC, ADIFF, MDW, CBC, GFR, CMP, TROPHS, ANEU #### [address] [address] Monocyte, Absolute 0.7 10 3/mcL Normal 0.2-1.0 [facility] ([place]) Comment on above: Performed By: #### L RADHA SARGENT MDW, CBC, GFR, CMP, TROPHS, ANEU #### [address] [address] Monocytes/100 WBC (Bld) 10.1 % Normal 1.7-13.0 A [facility] ([place]) Comment on above: Performed By: #### L RADHA SARGENT MDW, CBC, GFR, CMP, TROPHS, ANEU #### [address] [address] Neutrophils/100 WBC (Bld) 71.2 % Normal 37.0-80.0 [facility] ([place] Comment on above: Performed By: #### L RADHA SARGENT MDW, CBC, GFR, CMP, TROPHS, ANEU #### [address] [address] .GFRon 06-19-2022 GFR 107 ml/min/1.73sqm Normal [facility] ([place] Comment on above: Result Comment: GFR Population [...] MDW, CBC, GFR, CMP, TROPHS, ANEU #### [address] [address] GFR Non- 89 ml/min/1.73sqm Normal [facility] ([place] Comment on above: Result Comment: GFR Population [...] MDW, CBC, GFR, CMP, TROPHS, ANEU #### [place] [address] .NEUABSon 06-19-2022 Neutrophil, Absolute 5.0 10 3/mcL Normal 2.9-6.2 [facility] ([place] Comment on above: Performed By: #### L RADHA SARGENT MDW, CBC, GFR, CMP, TROPHS, ANEU #### [address] [address] A1Con 06-19-2022 HbA1c (Bld) [Mass fraction] 9.6 % High 4.3-6.4 [facility] ([place] Comment on above: Performed By: #### L RADHA SARGENT MDW, CBC, GFR, CMP, TROPHS, ANEU #### [place] [id number] CBCon 06-19-2022 Erythrocyte distribution width (RBC) [Ratio] 15.2 % High 11.5-14.5 [facility] ([place] Comment on above: Performed By: #### RADHA COSTA MDW, CBC, GFR, CMP, TROPHS, ANEU #### [address] [address] Hematocrit (Bld) [Volume fraction] 40.7 % Low 42.0-52.0 [facility] ([place] Comment on above: Performed By: #### L RADHA SARGENT MDW, CBC, GFR, CMP, TROPHS, ANEU #### [place] [address] Hgb 13.7 G/dL Low 14.0-18.0 [facility] ([place] Comment on above: Performed By: #### L RADHA SARGENT MDW, CBC, GFR, CMP, TROPHS, ANEU #### [place] [address] MCH (RBC) [Entitic mass] 34.1 pg High 27.0-31.2 [facility] ([place] Comment on above: Performed By: #### L RADHA SARGENT MDW, CBC, GFR, CMP, TROPHS, ANEU #### [place] [address] MCHC 33.7 G/dL Normal 31.8-35.4 [facility] ([place] Comment on above: Performed By: #### L RADHA SARGENT MDW, CBC, GFR, CMP, TROPHS, ANEU #### [place] [address] MCV (RBC) [Entitic vol] 101.1 fL High 80.0-94.0 A [facility] ([place]) Comment on above: Performed By: #### L RADHA SARGENT MDW, CBC, GFR, CMP, TROPHS, ANEU #### [place] [address] Platelet 279 10 3/mcL Normal 130-400 [facility] ([place] Comment on above: Performed By: #### L RADHA SARGENT MDW, CBC, GFR, CMP, TROPHS, ANEU #### [place] [address] Platelet mean volume (Bld) [Entitic vol] 9.2 fL Normal 7.4-10.4 [facility] ([place] Comment on above: Performed By: #### L RADHA SARGENT MDW, CBC, GFR, CMP, TROPHS, ANEU #### [place] [address] RBC 4.03 10 6/mcL Low 4.04-6.13 [facility] ([place] Comment on above: Performed By: #### L RADHA SARGENT MDW, CBC, GFR, CMP, TROPHS, ANEU #### [address] [address] WBC 7.1 10 3/mcL Normal 4.6-10.8 [facility] ([place] Comment on above: Performed By: #### L RADHA SARGENT MDW, CBC, GFR, CMP, TROPHS, ANEU #### [address] [address] CMPon 06-19-2022 Albumin Level 3.5 G/dL Normal 3.5-5.0 [facility] ([place] Comment on above: Performed By: #### L RADHA SARGENT MDW, CBC, GFR, CMP, TROPHS, ANEU #### [address] [address] Albumin/Globulin [Mass ratio] 1.0 {ratio} Low 1.1-2.5 [facility] ([place] Comment on above: Performed By: #### L RADHA SARGENT MDW, CBC, GFR, CMP, TROPHS, ANEU #### [address] [address] ALP [Catalytic activity/Vol] 174 U/L High 40-135 [facility] ([place] Comment on above: Performed By: #### L RADHA SARGENT MDW, CBC, GFR, CMP, TROPHS, ANEU #### [address] [address] ALT [Catalytic activity/Vol] 44 U/L Normal 16-63 [facility] ([place] Comment on above: Performed By: #### L RADHA SARGENT MDW, CBC, GFR, CMP, TROPHS, ANEU #### [address] [address] AST [Catalytic activity/Vol] 54 U/L High 10-40 [facility] ([place] Comment on above: Performed By: #### L RADHA SARGENT, W, CBC, GFR, CMP, TROPHS, ANEU #### [address] [address] Bili Total 0.4 mg/dL Normal 0.2-1.0 [facility] ([place] Comment on above: Result Comment: Use of this assay is not recommended for patients undergoing treatment with eltrombopag due to the potential for falsely elevated results. Performed By: #### L RADHA SARGENT MDW, CBC, GFR, CMP, TROPHS, ANEU #### [place] [id number] BUN/Creatinine Ratio 6 ratio Low 7-27 [facility] ([place] Comment on above: Performed By: #### L RADHA SARGENT MDW, CBC, GFR, CMP, TROPHS, ANEU #### [place] [phone] Calcium [Mass/Vol] 9.3 mg/dL Normal 8.4-10.2 [facility] ([place]) Comment on above: Performed By: #### L RADHA SARGENT MDW, CBC, GFR, CMP, TROPHS, ANEU #### [place] [id number] Chloride [Moles/Vol] 98 mmol/L Normal 98-107 [facility] ([place] Comment on above: Performed By: #### L RADHA SARGENT MDW, CBC, GFR, CMP, TROPHS, ANEU #### [place] [id number] CO2 [Moles/Vol] 30 mmol/L High 22-29 [facility] ([place] Comment on above: Performed By: #### L RADHA SARGENT MDW, CBC, GFR, CMP, TROPHS, ANEU #### [address] [address] Creatinine [Mass/Vol] 0.88 mg/dL Normal 0.70-1.30 [facility] ([place]) Comment on above: Performed By: #### L RADHA SARGENT MDW, CBC, GFR, CMP, TROPHS, ANEU #### [address] [address] Electrolyte Balance 3.0 mEq/L Low 4.0-15.0 [facility] ([place]) Comment on above: Performed By: #### L RADHA SARGENT MDW, CBC, GFR, CMP, TROPHS, ANEU #### [address] [address] Globulin 3.5 G/dL Normal [facility] ([place] Comment on above: Performed By: #### L RADHA SARGENT MDW, CBC, GFR, CMP, TROPHS, ANEU #### [address] [address] Glucose [Mass/Vol] 217 mg/dL High 70-105 [facility] ([place] Comment on above: Performed By: #### L RADHA SARGENT MDW, CBC, GFR, CMP, TROPHS, ANEU #### [place] [phone] Potassium [Moles/Vol] 4.5 mmol/L Normal 3.5-5.1 [facility] ([place] Comment on above: Performed By: #### L RADHA SARGENT MDW, CBC, GFR, CMP, TROPHS, ANEU #### [place] [address] Sodium [Moles/Vol] 131 mmol/L Low 136-145 [facility] ([place] Comment on above: Performed By: #### L RADHA SARGENT MDW, CBC, GFR, CMP, TROPHS, ANEU #### [address] [address] Total Protein 7.0 G/dL Normal 6.4-8.2 [facility] ([place] Comment on above: Performed By: #### L RADHA SARGENT MDW, CBC, GFR, CMP, TROPHS, ANEU #### [address] [address] Urea nitrogen [Mass/Vol] 5 mg/dL Low 7-18 [facility] ([place] Comment on above: Performed By: #### L RADHA SARGENT MDW, CBC, GFR, CMP, TROPHS, ANEU #### [address] [address] LABORATORYOrdered By: SYSTEM SYSTEM on 06-19-2022 25-hydroxyvitamin [...] 06-19-2022 Cholesterol [Mass/Vol] 172 mg/dL Normal 0-200 [facility] ([place]) Comment on above: Result Comment: Chol esterol Reference Interval: Less than 200 Desirable 200-239 Borderline high risk 240 and above High risk Performed By: #### L RADHA SARGENT MDW, CBC, GFR, CMP, TROPHS, ANEU #### [address] [address] Cholesterol in HDL [Mass/Vol] 47 mg/dL Normal 40-60 [facility] ([place] Comment on above: Performed By: #### L RADHA SARGENT MDW, CBC, GFR, CMP, TROPHS, ANEU #### [address] [address] Cholesterol in LDL [Mass/Vol] 92 mg/dL Normal 0-130 [facility] ([place] Comment on above: Performed By: #### L RADHA SARGENT MDW, CBC, GFR, CMP, TROPHS, ANEU #### [place] [address] Triglyceride [Mass/Vol] 164 mg/dL High 0-150 A [facility] ([place]) Comment on above: Result Comment: Trig lyceride Reference Interval: Less than 150 Normal 150-199 Borderline high risk 200-499 High risk 500 or higher Very high risk Performed By: #### L RADHA SARGENT MDW, CBC, GFR, CMP, TROPHS, ANEU #### [place] [address] PSAon 06-19-2022 Prostate Specific Antigen 0.38 ng/mL Normal 0.00-4.00 [facility] ([place]) Comment on above: Performed By: #### L RADHA SARGENT MDW, CBC, GFR, CMP, TROPHS, ANEU #### [place] [address] VIDHon 06-19-2022 Vit. D 25-Hydroxy <5.0 Normal [facility] ([place]) Comment on above: Result Comment: Inte rpretive Values Based on Total 25(OH) Vitamin D: Deficient <20 ng/mL Insufficient 20 - <30 ng/mL Sufficient 30-100 ng/mL Performed By: #### L RADHA SARGENT MDW, CBC, GFR, CMP, TROPHS, ANEU #### [place] [address] CT HEAD OR BRAIN W/O CONTRAS Ton [...] Sign Date: 05/13/2022 7:45:15 PM Ordering Provider: [facility]) CT SPINE CERVICAL W/O CONTRA STon 05-13-2022 [...] Sign Date: 05/13/2022 7:46:30 PM [facility]ing [facility]R SPINE LUMBOSACRAL MINIMUM 4 VIEWSon 05-13-2022 [...] 05/13/2022 8:46:22 PM Ordering Provider: MERRICK White [facility] ([place]) Glucose Glucometer (BldC) [M ass/Vol]Ordered By: Dr. Dutton on 03-24-2022 Glucose [Mass/Vol] 223 mg/dL 74-106 [facility] Comment on above: MANAGEMENT OF PATIEN T CARE PER NURSING PROTOCOL Basophil percentageOrdered B y: Dr. Dutton on 03-23-2022 Chloride [Moles/Vol] 107 mmol/L 98-107 [facility] Glucose [Mass/Vol] 149 mg/dL 74-106 [facility] Comment on above: Fasting Glucose resu lt greater than or equal to 126 mg/dL suggests DIABETES MELLITUS per A.D.A. criteria. Potassium [Moles/Vol] 4.9 mmol/L 3.5-5.1 [facility] Sodium [Moles/Vol] 140 mmol/L 136-145 [facility] Laboratory - Chemistry and C hemistry - challengeOrdered By: Dr. Dutton on 03-23-2022 CO2 [Moles/Vol] 30.0 mmol/L 21.0-32.0 [facility] Magnesium [Mass/Vol] 1.8 mg/dL 1.6-2.6 [facility] Urea nitrogen/Creatinine [Mass ratio] 8.1 mg/mg 10-20 [facility] No Panel InformationOrdered By: Dr. Dutton on 03-23-2022 Estimated Creatinine Clearance Calc 80.56 ml/min [facility] Estimated GFR (MDRD) Amer 116 mL/min >60 [facility] Comment on above: GFR Calc Estimated GFR (MDRD) Non-Af Amer 96 mL/min >60 [facility] Comment on above: Non- GFR Calc Serum or plasma calcium luciana urement (mass/volume)Ordered By: Dr. Dutton on 03-23-2022 Calcium [Mass/Vol] 7.7 mg/dL 8.5-10.1 [facility] Serum or plasma creatinine m easurement (mass/volume)Ordered By: Dr. Dutton on 03-23-2022 Creatinine [Mass/Vol] 0.87 mg/dL 0.70-1.30 [facility] Comment on above: The validity of the calculated GFR & GFRAA in patients over 70 years has not been determined. Clinical correlation is essential. Serum or plasma urea nitroge n measurement (mass/volume)Ordered By: Dr. Dutton on 03-23-2022 Urea nitrogen [Mass/Vol] 7 mg/dL 7-18 [facility] Thin prep Papanicolaou smear with manual screeningOrdered By: Dr. Dutton on 03-23-2022 Thin prep Papanicolaou smear with manual screening 3 5-15 [facility] Basophil percentageOrdered B y: Dr. Aguayo on 03-22-2022 Bilirubin [Mass/Vol] 1.10 mg/dL 0.20-1.00 [facility] Comment on above: For patients on eltr ombopag therapy, use of Dimension [place] TBIL is not recommended. Protein [Mass/Vol] 4.4 g/dL 6.4-8.2 [facility] Laboratory - Chemistry and C hemistry - challengeOrdered By: Dr. Aguayo on 03-22-2022 ALP [Catalytic activity/Vol] 104 U/L 45-117 [facility] ALT [Catalytic activity/Vol] 76 U/L 16-61 [facility] Globulin (S) [Mass/Vol] 2.4 g/dL 2.2-4.2 [facility] Serum or plasma albumin luciana urement (mass/volume)Ordered By: Dr. Aguayo on 03-22-2022 Albumin [Mass/Vol] 2.0 g/dL 3.2-5.0 [facility] Serum or plasma albumin/glob ulin mass ratioOrdered By: Dr. Aguayo on 03-22-2022 Albumin/Globulin [Mass ratio] 0.8 {ratio} 0.9-2.4 [facility] Thin prep Papanicolaou smear with manual screeningOrdered By: Dr. Aguayo on 03-22-2022 Thin prep Papanicolaou smear with manual screening 254 U/L 15-37 [facility] Whole blood hemoglobin A1c/t otal hemoglobin ratio (mass fraction)Ordered By: Dr. Aguayo on 03-22-2022 HbA1c (Bld) [Mass fraction] 8.3 % 3.8-5.6 [facility] Comment on above: Normal < 5.7 % Predi abetic 5.7 - 6.4 % Diabetic >or= 6.5 % Please note range changes. Absolute lymphocyte countOrd ered By: Dr. Lomeli on 03-21-2022 Lymphocytes Auto (Unsp spec) [#/Vol] 0.60 10*3/uL 0.83-4.51 [facility] Basophil percentageOrdered B y: Dr. Aguayo on 03-21-2022 Basophil percentage 3.6 mg/dL 2.5-4.9 [facility] Bilirubin [Mass/Vol] 1.40 mg/dL 0.20-1.00 [facility] Comment on above: For patients on eltr ombopag therapy, use of Dimension [place] TBIL is not recommended. Protein [Mass/Vol] 5.8 g/dL 6.4-8.2 [facility] Basophil percentageOrdered B y: Dr. Lomeli on 03-21-2022 Basophils/100 WBC (Bld) 0.8 % 0-1 [facility] Chloride [Moles/Vol] 98 mmol/L 98-107 [facility] Eosinophils/100 WBC (Bld) 5.6 % 0-5 [facility] Glucose [Mass/Vol] 294 mg/dL 74-106 [facility] Comment on above: Glucose result great er than or equal to 200 mg/dLsuggests DIABETES MELLITUS per A.D.A. criteria. Neutrophils (Bld) [#/Vol] 4.5 10*3/uL 2.0-7.7 [facility] Neutrophils/100 WBC (Bld) 75.0 % 47-70 [facility] Potassium [Moles/Vol] 3.2 mmol/L 3.5-5.1 [facility] Sodium [Moles/Vol] 142 mmol/L 136-145 [facility] WBC (Bld) [#/Vol] 6.0 10*3/uL 4.4-11.0 [facility] Blood erythrocytes count (nu mber/volume)Ordered By: Dr. Lomeli on 03-21-2022 RBC (Bld) [#/Vol] 3.88 10*6/uL 4.6-6.2 [facility] Blood hemoglobin measurement (mass/volume)Ordered By: Dr. Lomeli on 03-21-2022 Hemoglobin (Bld) [Mass/Vol] 13.2 g/dL 13.0-16.5 [facility] Blood lymphocytes/100 leukoc ytesOrdered By: Dr. Lomeli on 03-21-2022 Lymphocytes/100 WBC (Bld) 10.0 % 19-41 [facility] Blood manual differential co mment interpretation (narrative result)Ordered By: Dr. Lomeli on 03-21-2022 Manual differential comment Jose Carlos (Bld) [Interp] SCANNED [facility] Comment on above: LYMPHOPENIA NOTED Blood monocytes/100 leukocyt esOrdered By: Dr. Lomeli on 03-21-2022 Monocytes/100 WBC (Bld) 8.1 % 0-[address] [facility] Blood platelet mean volumeOr dered By: Dr. Lomeli on 03-21-2022 Platelet mean volume (Bld) [Entitic vol] 11.1 fL 6.2-12.0 [facility] Determination of erythrocyte mean corpuscular volume (MCV)Ordered By: Dr. Lomeli on 03-21-2022 MCV (RBC) [Entitic vol] 98.7 fL 80-[address] [facility] Direct bilirubinOrdered By: Dr. Aguayo on 03-21-2022 Bilirubin.direct [Mass/Vol] 0.55 mg/dL 0.00-0.30 [facility] Glucose Glucometer (BldC) [M ass/Vol]Ordered By: Dr. Alvarado on 03-21-2022 Glucose [Mass/Vol] 337 mg/dL 74-106 [facility] Comment on above: MANAGEMENT OF PATIEN T CARE PER NURSING PROTOCOL Hematocrit Auto (Bld) [Volum e fraction]Ordered By: Dr. Lomeli on 03-21-2022 Hematocrit (Bld) [Volume fraction] 38.3 % 40-54 [facility] Laboratory - Chemistry and C hemistry - challengeOrdered By: Dr. Aguayo on 03-21-2022 ALP [Catalytic activity/Vol] 144 U/L 45-117 [facility] ALT [Catalytic activity/Vol] 108 U/L 16-61 [facility] Globulin (S) [Mass/Vol] 3.0 g/dL 2.2-4.2 [facility] Magnesium [Mass/Vol] 1.2 mg/dL 1.6-2.6 [facility] Laboratory - Chemistry and C hemistry - challengeOrdered By: Dr. Lomeli on 03-21-2022 CO2 [Moles/Vol] 32.0 mmol/L 21.0-32.0 [facility] Urea nitrogen/Creatinine [Mass ratio] 3.6 mg/mg 10-20 [facility] Laboratory - Drug toxicology Ordered By: Dr. Lomeli on 03-21-2022 Amphetamines Ql (U) Negative <1000 ng/mL [facility] Benzodiazepines Ql (U) Negative < 200 ng/mL [facility] Cannabinoids Screen Ql (U) Negative < 50 ng/mL [facility] Cocaine Ql (U) Negative < 300 ng/mL [facility] Opiates Ql (U) Negative < 300 ng/mL [facility] Laboratory - Hematology and Cell countsOrdered By: Dr. Lomeli on 03-21-2022 Erythrocyte distribution width (RBC) [Entitic vol] 49.6 fL 35.1-43.9 [facility] Erythrocyte distribution width (RBC) [Ratio] 13.6 % 11.6-14.6 [facility] Immature granulocytes/100 WBC (Bld) 0.500 % 0.0-0.9 [facility] Comment on above: IG% - Immature Granu locytes (promyelocytes, myelocytes and metamyelocytes) > 1% indicates that a LEFT SHIFT is Present. MCH (RBC) [Entitic mass] 34.0 pg 27.0-32.0 [facility] Nucleated RBC/100 WBC (Bld) [Ratio] 0 % 0-5 [facility] MCHC Auto (RBC) [Mass/Vol]Or dered By: Dr. Lomeli on 03-21-2022 MCHC (RBC) [Mass/Vol] 34.5 g/dL 32-36 [facility] No Panel InformationOrdered By: Dr. Lomeli on 03-21-2022 MDMA (Ecstasy) Screen Negative < 500 ng/mL [facility] Urine Barbiturates Screen Negative < 200 ng/mL [facility] Urine Drug Screen Comment [facility] Comment on above: CONFIRMATORY TESTING FOR [...] Screen Negative < 300 ng/mL [facility] Estimated Creatinine Clearance Calc 68.96 ml/min [facility] Estimated GFR (MDRD) Amer 87 mL/min >60 [facility] Comment on above: GFR Calc Estimated GFR (MDRD) Non-Af Amer 72 mL/min >60 [facility] Comment on above: Non- GFR Calc Ethyl Alcohol Level < 3.0 mg/dL [facility] Comment on above: The serum:whole bloo d ethanol ratio is approximately 1.14and varies slightly with hematocrit. Medical Alcohol reference interval and critical value innon-tolerant individuals; 50 - 100 Impairment 100 Intoxication 100 - 250 Severe Poisoning 250 - 400 Deep/possible fatal coma Platelets bldOrdered By: Dr. Lomeli on 03-21-2022 Platelets (Bld) [#/Vol] 144 10*3/uL 150-450 [facility] Serum or plasma albumin luciana urement (mass/volume)Ordered By: Dr. Aguayo on 03-21-2022 Albumin [Mass/Vol] 2.8 g/dL 3.2-5.0 [facility] Serum or plasma calcium luciana urement (mass/volume)Ordered By: Dr. Lomeli on 03-21-2022 Calcium [Mass/Vol] 8.3 mg/dL 8.5-10.1 [facility] Serum or plasma creatinine m easurement (mass/volume)Ordered By: Dr. Lomeli on 03-21-2022 Creatinine [Mass/Vol] 1.11 mg/dL 0.70-1.30 [facility] Comment on above: The validity of the calculated GFR & GFRAA in patients over 70 years has not been determined. Clinical correlation is essential. Serum or plasma urea nitroge n measurement (mass/volume)Ordered By: Dr. Lomeli on 03-21-2022 Urea nitrogen [Mass/Vol] 4 mg/dL 7-18 [facility] Thin prep Papanicolaou smear with manual screeningOrdered By: Dr. Aguayo on 03-21-2022 Thin prep Papanicolaou smear with manual screening 334 U/L 15- [facility] Thin prep Papanicolaou smear with manual screeningOrdered By: Dr. Lomeli on 03-21-2022 Thin prep Papanicolaou smear with manual screening 12 - [facility] Urine phencyclidine (PCP) de tectionOrdered By: Dr. Lomeli on 03-21-2022 Phencyclidine Ql (U) Negative < 25 ng/mL [facility] Basophil percentageOrdered B y: Dr. Dutton on 02-04-2022 Glucose [Mass/Vol] 516 mg/dL 74-106 [facility] Comment on above: Critical Result(s) C alled at: 11:23:39 02/04/2022 by: Estefany Rosenberg. Results read back by same.Glucose result greater than or equal to 200 mg/dLsuggests DIABETES MELLITUS per A.D.A. criteria. Glucose Glucometer (BldC) [M ass/Vol]Ordered By: Dr. Dutton on 02-04-2022 Glucose [Mass/Vol] 494 mg/dL 74-106 [facility] Comment on above: Repeat TestMANAGEMEN T OF PATIENT CARE PER NURSING PROTOCOL Absolute lymphocyte countOrd ered By: Dr. Lomeli on 02-01-2022 Lymphocytes Auto (Unsp spec) [#/Vol] 1.73 10*3/uL 0.83-4.51 [facility] Basophil percentageOrdered B y: Dr. Aguayo on 02-01-2022 Basophil percentage 2.6 mg/dL 2.5-4.9 [facility] Bilirubin [Mass/Vol] 0.30 mg/dL 0.20-1.00 [facility] Comment on above: For patients on eltr ombopag therapy, use of Dimension [place] TBIL is not recommended. Protein [Mass/Vol] 6.2 g/dL 6.4-8.2 [facility] Basophil percentageOrdered B y: Dr. Lomeli on 02-01-2022 Chloride [Moles/Vol] 107 mmol/L 98-107 [facility] Potassium [Moles/Vol] 3.1 mmol/L 3.5-5.1 [facility] Sodium [Moles/Vol] 144 mmol/L 136-145 [facility] Basophils/100 WBC (Bld) 1.6 % 0-[address] [facility] Eosinophils/100 WBC (Bld) 0.4 % 0-5 [facility] Neutrophils (Bld) [#/Vol] 2.9 10*3/uL 2.0-7.7 [facility] Neutrophils/100 WBC (Bld) 55.5 % 47-70 [facility] WBC (Bld) [#/Vol] 5.2 10*3/uL 4.4-11.0 [facility] Basophil percentageon 2021 Glucose [Mass/Vol] 256 mg/dL 74-106 [facility] Work Phone: Comment on above: Glucose result great er than or equal to 200 mg/dLsuggests DIABETES MELLITUS per A.D.A. criteria. Blood erythrocytes count (nu mber/volume)Ordered By: Dr. Lomeli on 02-01-2022 RBC (Bld) [#/Vol] 3.96 10*6/uL 4.6-6.2 [facility] Blood hemoglobin measurement (mass/volume)Ordered By: Dr. Lomeli on 02-01-2022 Hemoglobin (Bld) [Mass/Vol] 14.2 g/dL 13.0-16.5 [facility] Blood lymphocytes/100 leukoc ytesOrdered By: Dr. Lomeli on 02-01-2022 Lymphocytes/100 WBC (Bld) 33.6 % 19-41 [facility] Blood monocytes/100 leukocyt esOrdered By: Dr. Lomeli on 02-01-2022 Monocytes/100 WBC (Bld) 8.5 % 0-[address] [facility] Blood platelet mean volumeOr dered By: Dr. Lomeli on 02-01-2022 Platelet mean volume (Bld) [Entitic vol] 11.6 fL 6.2-12.0 [facility] Determination of erythrocyte mean corpuscular volume (MCV)Ordered By: Dr. Lomeli on 02-01-2022 MCV (RBC) [Entitic vol] 106.3 fL 80-[address] [facility] Direct bilirubinOrdered By: Dr. Aguayo on 02-01-2022 Bilirubin.direct [Mass/Vol] 0.20 mg/dL 0.00-0.30 [facility] Hematocrit Auto (Bld) [Volum e fraction]Ordered By: Dr. Lomeli on 02-01-2022 Hematocrit (Bld) [Volume fraction] 42.1 % 40-54 [facility] Laboratory - Chemistry and C hemistry - challengeOrdered By: Dr. Aguayo on 02-01-2022 ALP [Catalytic activity/Vol] 164 U/L 45-117 [facility] ALT [Catalytic activity/Vol] 109 U/L 16-61 [facility] Globulin (S) [Mass/Vol] 3.2 g/dL 2.2-4.[address] [facility] Magnesium [Mass/Vol] 2.0 mg/dL 1.6-2.6 [facility] Laboratory - Chemistry and C hemistry - challengeOrdered By: Dr. Lomeli on 02-01-2022 CO2 [Moles/Vol] 29.0 mmol/L 21.0-32.0 [facility] Lipase [Catalytic activity/Vol] 21 U/L 73-393 [facility] Urea nitrogen/Creatinine [Mass ratio] 4.6 mg/mg 10-20 [facility] Laboratory - Hematology and Cell countsOrdered By: Dr. Lomeli on 02-01-2022 Erythrocyte distribution width (RBC) [Entitic vol] 52.8 fL 35.1-43.9 [facility] Erythrocyte distribution width (RBC) [Ratio] 13.3 % 11.6-14.6 [facility] Immature granulocytes/100 WBC (Bld) 0.400 % 0.0-0.9 [facility] Comment on above: IG% - Immature Granu locytes (promyelocytes, myelocytes and metamyelocytes) > 1% indicates that a LEFT SHIFT is Present. MCH (RBC) [Entitic mass] 35.9 pg 27.0-32.0 [facility] Nucleated RBC/100 WBC (Bld) [Ratio] 0 % 0-5 [facility] Auto (RBC) [Mass/Vol]Or dered By: Dr. Lomeli on 02-01-2022 MCHC (RBC) [Mass/Vol] 33.7 g/dL 32-36 [facility] No Panel InformationOrdered By: Dr. Lomeli on 02-01-2022 Troponin I High Sensitivity 22 pg/mL 3.0-78.0 [facility] Comment on above: Please Note: New Kelly t Units and Gender Specific Reference Ranges. For more information see Policy Stat Procedure [place] High Sensitivity Troponin (TNIH) and attachments. Estimated Creatinine Clearance Calc 60.20 ml/min [facility] Estimated GFR (MDRD) Amer 72 mL/min >60 [facility] Comment on above: GFR Calc Estimated GFR (MDRD) Non-Af Amer 59 mL/min >60 [facility] Comment on above: Non- GFR Calc No Panel Informationon 02-01 Troponin I High Sensitivity 22 pg/mL 3.0-78.0 [facility] Work Phone: Comment on above: Please Note: New Kelly t Units and Gender Specific Reference Ranges. For more information see Policy Stat Procedure [place] High Sensitivity Troponin (TNIH) and attachments. Platelets bldOrdered By: Dr. Lomeli on 02-01-2022 Platelets (Bld) [#/Vol] 206 10*3/uL 150-450 [facility] Serum or plasma albumin luciana urement (mass/volume)Ordered By: Dr. Aguayo on 02-01-2022 Albumin [Mass/Vol] 3.0 g/dL 3.2-5.0 [facility] Serum or plasma calcium luciana urement (mass/volume)Ordered By: Dr. Lomeli on 02-01-2022 Calcium [Mass/Vol] 8.3 mg/dL 8.5-10.1 [facility] Serum or plasma creatinine m easurement (mass/volume)Ordered By: Dr. Lomeli on 02-01-2022 Creatinine [Mass/Vol] 1.31 mg/dL 0.70-1.30 [facility] Comment on above: The validity of the calculated GFR & GFRAA in patients over 70 years has not been determined. Clinical correlation is essential. Serum or plasma urea nitroge n measurement (mass/volume)Ordered By: Dr. Lomeli on 02-01-2022 Urea nitrogen [Mass/Vol] 6 mg/dL 7-18 [facility] Thin prep Papanicolaou smear with manual screeningOrdered By: Dr. Aguayo on 02-01-2022 Thin prep Papanicolaou smear with manual screening 239 U/L 15-37 [facility] Thin prep Papanicolaou smear with manual screeningOrdered By: Dr. Lomeli on 02-01-2022 Thin prep Papanicolaou smear with manual screening 8 5-15 [facility] LABORATORYOrdered By: Amanda Ibrahim on 12-31-2021 HbA1c (Bld) [Mass fraction] 7.9 % [facility] Work Phone: Lab Performing Location [facility] Work Phone: Glucose Glucometer (BldC) [M ass/Vol]on 11-14-2021 Glucose [Mass/Vol] 270 mg/dL 74-106 [facility] Work Phone: Comment on above: MANAGEMENT OF PATIEN T CARE PER NURSING PROTOCOL Absolute lymphocyte counton 11-11-2021 Lymphocytes Auto (Unsp spec) [#/Vol] 1.48 10*3/uL 0.83-4.51 [facility] Work Phone: Basophil percentageon 2021 Basophil percentage 3.4 mg/dL 2.5-4.9 [facility] Work Phone: Basophils/100 WBC (Bld) 0.6 % 0-[address] [facility] Work Phone: Bilirubin [Mass/Vol] 0.60 mg/dL 0.20-1.00 [facility] Work Phone: Comment on above: For patients on eltr ombopag therapy, use of Dimension [place] TBIL is not recommended. Chloride [Moles/Vol] 98 mmol/L 98-107 [facility] Work Phone: Eosinophils/100 WBC (Bld) 0.4 % 0-5 [facility] Work Phone: Glucose [Mass/Vol] 284 mg/dL 74-106 [facility] Work Phone: Comment on above: Glucose result great er than or equal to 200 mg/dLsuggests DIABETES MELLITUS per A.D.A. criteria. Neutrophils (Bld) [#/Vol] 2.9 10*3/uL 2.0-7.7 [facility] Work Phone: Neutrophils/100 WBC (Bld) 57.5 % 47-70 [facility] Work Phone: Potassium [Moles/Vol] 3.5 mmol/L 3.5-5.1 [facility] Work Phone: Protein [Mass/Vol] 5.1 g/dL 6.4-8.2 [facility] Work Phone: Sodium [Moles/Vol] 137 mmol/L 136-145 [facility] Work Phone: WBC (Bld) [#/Vol] 5.0 10*3/uL 4.4-11.0 [facility] Work Phone: Blood erythrocytes count (nu mber/volume)on 11-11-2021 RBC (Bld) [#/Vol] 3.00 10*6/uL 4.6-6.2 [facility] Work Phone: Blood hemoglobin measurement (mass/volume)on 11-11-2021 Hemoglobin (Bld) [Mass/Vol] 11.3 g/dL 13.0-16.5 [facility] Work Phone: Blood lymphocytes/100 leukoc yteson 11-11-2021 Lymphocytes/100 WBC (Bld) 29.7 % 19-41 [facility] Work Phone: Blood monocytes/100 leukocyt eson 11-11-2021 Monocytes/100 WBC (Bld) 11.2 % 0-[address] [facility] Work Phone: [phone] Blood platelet adequacy dete ction by light microscopyon 11-11-2021 Platelets LM Ql (Bld) ADEQUATE ADEQ [facility] Work Phone: [phone] Blood platelet mean volumeon 11-11-2021 Platelet mean volume (Bld) [Entitic vol] 10.7 fL 6.2-12.0 [facility] Work Phone: [phone] Determination of erythrocyte mean corpuscular volume (MCV)on 11-11-2021 MCV (RBC) [Entitic vol] 110.7 fL 80-[address] [facility] Work Phone: [phone] Direct bilirubinon Bilirubin.direct [Mass/Vol] 0.33 mg/dL 0.00-0.30 [facility] Work Phone: [phone] Hematocrit Auto (Bld) [Volum e fraction]on 11-11-2021 Hematocrit (Bld) [Volume fraction] 33.2 % 40-54 [facility] Work Phone: [phone] Laboratory - Chemistry and C hemistry - challengeon 11-11-2021 ALP [Catalytic activity/Vol] 133 U/L 45-117 [facility] Work Phone: [phone] ALT [Catalytic activity/Vol] 55 U/L 16-61 [facility] Work Phone: [phone] CO2 [Moles/Vol] 28.0 mmol/L 21.0-32.0 [facility] Work Phone: [phone] Globulin (S) [Mass/Vol] 2.9 g/dL 2.2-4.[address] [facility] Work Phone: [phone] Magnesium [Mass/Vol] 1.8 mg/dL 1.6-2.6 [facility] Work Phone: [phone] Urea nitrogen/Creatinine [Mass ratio] 7.8 mg/mg 10-20 [facility] Work Phone: [phone] Laboratory - Drug toxicology on 11-11-2021 Amphetamines Ql (U) Negative <1000 ng/mL [facility] Work Phone: [phone] Benzodiazepines Ql (U) Negative < 200 ng/mL [facility] Work Phone: [phone] Cannabinoids Screen Ql (U) Negative < 50 ng/mL [facility] Work Phone: [phone] Cocaine Ql (U) Negative < 300 ng/mL [facility] Work Phone: [phone] Opiates Ql (U) Negative < 300 ng/mL [facility] Work Phone: [phone] Laboratory - Hematology and Cell countson 11-11-2021 Anisocytosis Ql (Bld) 1+ [facility] Work Phone: [phone] Erythrocyte distribution width (RBC) [Entitic vol] 71.1 fL 35.1-43.9 [facility] Work Phone: [phone] Erythrocyte distribution width (RBC) [Ratio] 17.3 % 11.6-14.6 [facility] Work Phone: [phone] Immature granulocytes/100 WBC (Bld) 0.600 % 0.0-0.9 [facility] Work Phone: [phone] Comment on above: IG% - Immature Granu locytes (promyelocytes, myelocytes and metamyelocytes) > 1% indicates that a LEFT SHIFT is Present. MCH (RBC) [Entitic mass] 37.7 pg 27.0-32.0 [facility] Work Phone: Nucleated RBC/100 WBC (Bld) [Ratio] 0 % 0-5 [facility] Work Phone: [phone] MCHC Auto (RBC) [Mass/Vol]on 11-11-2021 MCHC (RBC) [Mass/Vol] 34.0 g/dL 32-36 [facility] Work Phone: Macrocytes detectionon 11-11 Macrocytes Ql (Bld) 1+ [facility] Work Phone: [phone] Panel Informationon 11-11 MDMA (Ecstasy) Screen Negative < 500 ng/mL [facility] Work Phone: [phone] Urine Barbiturates Screen Positive < 200 ng/mL [facility] Work Phone: Urine Drug Screen Comment [facility] Work Phone: Comment on above: CONFIRMATORY [...] Screen Negative < 300 ng/mL [facility] Work Phone: Estimated Creatinine Clearance Calc 63.79 ml/min [facility] Work Phone: Estimated GFR (MDRD) Amer 74 mL/min >60 [facility] Work Phone: Comment on above: GFR Calc Estimated GFR (MDRD) Non-Af Amer 61 mL/min >60 [facility] Work Phone: Comment on above: Non- GFR Calc Ethyl Alcohol Level 118.0 mg/dL [facility] Work Phone: Comment on above: The serum:whole bloo d ethanol ratio is approximately 1.14and varies slightly with hematocrit. Medical Alcohol reference interval and critical value innon-tolerant individuals; 50 - 100 Impairment 100 Intoxication 100 - 250 Severe Poisoning 250 - 400 Deep/possible fatal coma Platelets bldon 11-11-2021 Platelets (Bld) [#/Vol] 241 10*3/uL 150-450 [facility] Work Phone: [phone] Serum or plasma albumin luciana urement (mass/volume)on 11-11-2021 Albumin [Mass/Vol] 2.2 g/dL 3.2-5.0 [facility] Work Phone: [phone] Serum or plasma calcium luciana urement (mass/volume)on 11-11-2021 Calcium [Mass/Vol] 7.9 mg/dL 8.5-10.1 [facility] Work Phone: Serum or plasma creatinine m easurement (mass/volume)on 11-11-2021 Creatinine [Mass/Vol] 1.28 mg/dL 0.70-1.30 [facility] Work Phone: Comment on above: The validity of the calculated GFR & GFRAA in patients over 70 years has not been determined. Clinical correlation is essential. Serum or plasma urea nitroge n measurement (mass/volume)on 11-11-2021 Urea nitrogen [Mass/Vol] 10 mg/dL 7-18 [facility] Work Phone: Thin prep Papanicolaou smear with manual screeningon 11-11-2021 Thin prep Papanicolaou smear with manual screening 80 U/L 15-37 [facility] Work Phone: Thin prep Papanicolaou smear with manual screening 11 5-15 [facility] Work Phone: Urine phencyclidine (PCP) de tectionon 11-11-2021 Phencyclidine Ql (U) Negative < 25 ng/mL [facility] Work Phone: Basophil percentageon 2021 Chloride [Moles/Vol] 106 mmol/L 98-107 [facility] Work Phone: Glucose [Mass/Vol] 84 mg/dL 74-106 [facility] Work Phone: Potassium [Moles/Vol] 4.8 mmol/L 3.5-5.1 [facility] Work Phone: Sodium [Moles/Vol] 140 mmol/L 136-145 [facility] Work Phone: Glucose Glucometer (BldC) [M ass/Vol]on 11-08-2021 Glucose [Mass/Vol] 141 mg/dL 74-106 [facility] Work Phone: Comment on above: MANAGEMENT OF PATIEN T CARE PER NURSING PROTOCOL Laboratory - Chemistry and C hemistry - challengeon 11-08-2021 CO2 [Moles/Vol] 30.0 mmol/L 21.0-32.0 [facility] Work Phone: Urea nitrogen/Creatinine [Mass ratio] 8.0 mg/mg 10-20 [facility] Work Phone: No Panel Informationon 11-08 Estimated Creatinine Clearance Calc 88.72 ml/min [facility] Work Phone: Estimated GFR (MDRD) Amer 114 mL/min >60 [facility] Work Phone: [phone] Comment on above: GFR Calc Estimated GFR (MDRD) Non-Af Amer 94 mL/min >60 [facility] Work Phone: Comment on above: Non- GFR Calc Serum or plasma calcium luciana urement (mass/volume)on 11-08-2021 Calcium [Mass/Vol] 7.7 mg/dL 8.5-10.1 [facility] Work Phone: Serum or plasma creatinine m easurement (mass/volume)on 11-08-2021 Creatinine [Mass/Vol] 0.88 mg/dL 0.70-1.30 [facility] Work Phone: Comment on above: The validity of the calculated GFR & GFRAA in patients over 70 years has not been determined. Clinical correlation is essential. Serum or plasma urea nitroge n measurement (mass/volume)on 11-08-2021 Urea nitrogen [Mass/Vol] 7 mg/dL 7-18 [facility] Work Phone: Thin prep Papanicolaou smear with manual screeningon 11-08-2021 Thin prep Papanicolaou smear with manual screening 4 5-15 [facility] Work Phone: Laboratory - Chemistry and C hemistry - challengeon 11-06-2021 Magnesium [Mass/Vol] 2.6 mg/dL 1.6-2.6 [facility] Work Phone: Comment on above: Slight Hemolysis, Re sult may be falsely increased. Absolute lymphocyte counton 11-05-2021 Lymphocytes Auto (Unsp spec) [#/Vol] 1.65 10*3/uL 0.83-4.51 [facility] Work Phone: Basophil percentageon 2021 Bilirubin [Mass/Vol] 0.80 mg/dL 0.20-1.00 [facility] Work Phone: Comment on above: For patients on eltr ombopag therapy, use of Dimension [place] TBIL is not recommended. Chloride [Moles/Vol] 92 mmol/L 98-107 [facility] Work Phone: Glucose [Mass/Vol] 310 mg/dL 74-106 [facility] Work Phone: Comment on above: Glucose result great er than or equal to 200 mg/dLsuggests DIABETES MELLITUS per A.D.A. criteria. Potassium [Moles/Vol] 2.5 mmol/L 3.5-5.1 [facility] Work Phone: Comment on above: Moderate Hemolysis, Result may be falsely increased. Critical Result(s) Called at: 17:34:59 11/05/2021 by: Carlos Minor to Galileo Short RN (ER). Results read back by same. Protein [Mass/Vol] 5.6 g/dL 6.4-8.2 [facility] Work Phone: Sodium [Moles/Vol] 138 mmol/L 136-145 [facility] Work Phone: Basophils/100 WBC (Bld) 1.0 % 0-[address] [facility] Work Phone: Eosinophils/100 WBC (Bld) 0.5 % 0-5 [facility] Work Phone: Neutrophils (Bld) [#/Vol] 3.4 10*3/uL 2.0-7.7 [facility] Work Phone: Neutrophils/100 WBC (Bld) 56.9 % 47-70 [facility] Work Phone: WBC (Bld) [#/Vol] 5.9 10*3/uL 4.4-11.0 [facility] Work Phone: Blood erythrocytes count (nu mber/volume)on 11-05-2021 RBC (Bld) [#/Vol] 3.22 10*6/uL 4.6-6.2 [facility] Work Phone: [phone] Blood hemoglobin measurement (mass/volume)on 11-05-2021 Hemoglobin (Bld) [Mass/Vol] 12.0 g/dL 13.0-16.5 [facility] Work Phone: [phone] Blood lymphocytes/100 leukoc yteson 11-05-2021 Lymphocytes/100 WBC (Bld) 27.9 % 19-41 [facility] Work Phone: [phone] Blood monocytes/100 leukocyt eson 11-05-2021 Monocytes/100 WBC (Bld) 13.4 % 0-[address] [facility] Work Phone: [phone] Blood platelet mean volumeon 11-05-2021 Platelet mean volume (Bld) [Entitic vol] 11.5 fL 6.2-12.0 [facility] Work Phone: [phone] Determination of erythrocyte mean corpuscular volume (MCV)on 11-05-2021 MCV (RBC) [Entitic vol] 107.8 fL 80-[address] [facility] Work Phone: [phone] Hematocrit Auto (Bld) [Volum e fraction]on 11-05-2021 Hematocrit (Bld) [Volume fraction] 34.7 % 40-54 [facility] Work Phone: Laboratory - Chemistry and C hemistry - challengeon 11-05-2021 ALP [Catalytic activity/Vol] 150 U/L 45-117 [facility] Work Phone: [phone] ALT [Catalytic activity/Vol] 78 U/L 16-61 [facility] Work Phone: [phone] CO2 [Moles/Vol] 27.0 mmol/L 21.0-32.0 [facility] Work Phone: [phone] Globulin (S) [Mass/Vol] 3.3 g/dL 2.2-4.[address] [facility] Work Phone: [phone] Lipase [Catalytic activity/Vol] 11 U/L 73-393 [facility] Work Phone: [phone] Urea nitrogen/Creatinine [Mass ratio] 6.1 mg/mg 10-20 [facility] Work Phone: [phone] Laboratory - Drug toxicology on 11-05-2021 Amphetamines Ql (U) Negative <1000 ng/mL [facility] Work Phone: [phone] Benzodiazepines Ql (U) Negative < 200 ng/mL [facility] Work Phone: [phone] Cannabinoids Screen Ql (U) Negative < 50 ng/mL [facility] Work Phone: [phone] Cocaine Ql (U) Negative < 300 ng/mL [facility] Work Phone: [phone] Opiates Ql (U) Negative < 300 ng/mL [facility] Work Phone: [phone] Laboratory - Hematology and Cell countson 11-05-2021 Erythrocyte distribution width (RBC) [Entitic vol] 62.5 fL 35.1-43.9 [facility] Work Phone: [phone] Erythrocyte distribution width (RBC) [Ratio] 15.7 % 11.6-14.6 [facility] Work Phone: [phone] Immature granulocytes/100 WBC (Bld) 0.300 % 0.0-0.9 [facility] Work Phone: [phone] Comment on above: IG% - Immature Granu locytes (promyelocytes, myelocytes and metamyelocytes) > 1% indicates that a LEFT SHIFT is Present. MCH (RBC) [Entitic mass] 37.3 pg 27.0-32.0 [facility] Work Phone: [phone] Nucleated RBC/100 WBC (Bld) [Ratio] 0 % 0-5 [facility] Work Phone: [phone] MCHC Auto (RBC) [Mass/Vol]on 11-05-2021 MCHC (RBC) [Mass/Vol] 34.6 g/dL 32-36 [facility] Work Phone: [phone] Panel Informationon 11-05 MDMA (Ecstasy) Screen Negative < 500 ng/mL [facility] Work Phone: Urine Barbiturates Screen Negative < 200 ng/mL [facility] Work Phone: [phone] Urine Drug Screen Comment [facility] Work Phone: Comment on above: CONFIRMATORY [...] Screen Negative < 300 ng/mL [facility] Work Phone: Estimated Creatinine Clearance Calc 73.66 ml/min [facility] Work Phone: [phone] Estimated GFR (MDRD) Amer 84 mL/min >60 [facility] Work Phone: [phone] Comment on above: GFR Calc Estimated GFR (MDRD) Non-Af Amer 69 mL/min >60 [facility] Work Phone: Comment on above: Non- GFR Calc Ethyl Alcohol Level 253.0 mg/dL [facility] Work Phone: Comment on above: The serum:whole bloo d ethanol ratio is approximately 1.14and varies slightly with hematocrit. Medical Alcohol reference interval and critical value innon-tolerant individuals; 50 - 100 Impairment 100 Intoxication 100 - 250 Severe Poisoning 250 - 400 Deep/possible fatal coma Platelets bldon 11-05-2021 Platelets (Bld) [#/Vol] 215 10*3/uL 150-450 [facility] Work Phone: [phone] Serum or plasma albumin luciana urement (mass/volume)on 11-05-2021 Albumin [Mass/Vol] 2.3 g/dL 3.2-5.0 [facility] Work Phone: [phone] Serum or plasma albumin/glob ulin mass ratioon 11-05-2021 Albumin/Globulin [Mass ratio] 0.7 {ratio} 0.9-2.4 [facility] Work Phone: [phone] Serum or plasma calcium luciana urement (mass/volume)on 11-05-2021 Calcium [Mass/Vol] 7.8 mg/dL 8.5-10.1 [facility] Work Phone: [phone] Serum or plasma creatinine m easurement (mass/volume)on 11-05-2021 Creatinine [Mass/Vol] 1.15 mg/dL 0.70-1.30 [facility] Work Phone: [phone] Comment on above: The validity of the calculated GFR & GFRAA in patients over 70 years has not been determined. Clinical correlation is essential. Serum or plasma urea nitroge n measurement (mass/volume)on 11-05-2021 Urea nitrogen [Mass/Vol] 7 mg/dL 7-18 [facility] Work Phone: [phone] Thin prep Papanicolaou smear with manual screeningon 11-05-2021 Thin prep Papanicolaou smear with manual screening 163 U/L 15-37 [facility] Work Phone: [phone] Comment on above: Moderate Hemolysis, Result may be falsely increased. Thin prep Papanicolaou smear with manual screening 19 5-15 [facility] Work Phone: [phone] Urine phencyclidine (PCP) de tectionon 11-05-2021 Phencyclidine Ql (U) Negative < 25 ng/mL [facility] Work Phone: [phone] Absolute lymphocyte counton 10-06-2021 Lymphocytes Auto (Unsp spec) [#/Vol] 1.72 10*3/uL 0.83-4.51 [facility] Work Phone: [phone] Basophil percentageon 2021 Basophils/100 WBC (Bld) 2.1 % 0-[address] [facility] Work Phone: [phone] Chloride [Moles/Vol] 108 mmol/L 98-107 [facility] Work Phone: Eosinophils/100 WBC (Bld) 2.6 % 0-5 [facility] Work Phone: Glucose [Mass/Vol] 236 mg/dL 74-106 [facility] Work Phone: Comment on above: Glucose result great er than or equal to 200 mg/dLsuggests DIABETES MELLITUS per A.D.A. criteria. Neutrophils (Bld) [#/Vol] 1.7 10*3/uL 2.0-7.7 [facility] Work Phone: Neutrophils/100 WBC (Bld) 40.4 % 47-70 [facility] Work Phone: Potassium [Moles/Vol] 3.4 mmol/L 3.5-5.1 [facility] Work Phone: Sodium [Moles/Vol] 144 mmol/L 136-145 [facility] Work Phone: WBC (Bld) [#/Vol] 4.3 10*3/uL 4.4-11.0 [facility] Work Phone: Blood erythrocytes count (nu mber/volume)on 10-06-2021 RBC (Bld) [#/Vol] 3.85 10*6/uL 4.6-6.2 [facility] Work Phone: Blood hemoglobin measurement (mass/volume)on 10-06-2021 Hemoglobin (Bld) [Mass/Vol] 13.6 g/dL 13.0-16.5 [facility] Work Phone: Blood lymphocytes/100 leukoc yteson 10-06-2021 Lymphocytes/100 WBC (Bld) 40.5 % 19-41 [facility] Work Phone: Blood monocytes/100 leukocyt eson 10-06-2021 Monocytes/100 WBC (Bld) 13.9 % 0-[address] [facility] Work Phone: Blood platelet mean volumeon 10-06-2021 Platelet mean volume (Bld) [Entitic vol] 9.6 fL 6.2-12.0 [facility] Work [phone] Determination of erythrocyte mean corpuscular volume (MCV)on 10-06-2021 MCV (RBC) [Entitic vol] 101.0 fL 80-[address] [facility] Work Phone: [phone] Glucose Glucometer (BldC) [M ass/Vol]on 10-06-2021 Glucose [Mass/Vol] 211 mg/dL 74-106 [facility] Work Phone: [phone] Comment on above: MANAGEMENT OF PATIEN T CARE PER NURSING PROTOCOL Hematocrit Auto (Bld) [Volum e fraction]on 10-06-2021 Hematocrit (Bld) [Volume fraction] 38.9 % 40-54 [facility] Work Phone: Laboratory - Chemistry and C hemistry - challengeon 10-06-2021 CO2 [Moles/Vol] 28.0 mmol/L 21.0-32.0 [facility] Work Phone: [phone] Urea nitrogen/Creatinine [Mass ratio] 4.3 mg/mg 10-20 [facility] Work Phone: [phone] Laboratory - Drug toxicology on 10-06-2021 Amphetamines Ql (U) Negative <1000 ng/mL [facility] Work Phone: Benzodiazepines Ql (U) Negative < 200 ng/mL [facility] Work Phone: [phone] Cannabinoids Screen Ql (U) Negative < 50 ng/mL [facility] Work Phone: [phone] Cocaine Ql (U) Negative < 300 ng/mL [facility] Work Phone: [phone] Opiates Ql (U) Negative < 300 ng/mL [facility] Work Phone: [phone] Laboratory - Hematology and Cell countson 10-06-2021 Erythrocyte distribution width (RBC) [Entitic vol] 52.8 fL 35.1-43.9 [facility] Work Phone: [phone] Erythrocyte distribution width (RBC) [Ratio] 14.3 % 11.6-14.6 [facility] Work Phone: [phone] Immature granulocytes/100 WBC (Bld) 0.500 % 0.0-0.9 [facility] Work Phone: [phone] Comment on above: IG% - Immature Granu locytes (promyelocytes, myelocytes and metamyelocytes) > 1% indicates that a LEFT SHIFT is Present. MCH (RBC) [Entitic mass] 35.3 pg 27.0-32.0 [facility] Work Phone: [phone] Nucleated RBC/100 WBC (Bld) [Ratio] 0 % 0-5 [facility] Work Phone: [phone] MCHC Auto (RBC) [Mass/Vol]on 10-06-2021 MCHC (RBC) [Mass/Vol] 35.0 g/dL 32-36 [facility] Work Phone: [phone] Panel Informationon 10-06 Ethyl Alcohol Level 107.0 mg/dL [facility] Work Phone: [phone] Comment on above: The serum:whole bloo d ethanol ratio is approximately 1.14and varies slightly with hematocrit. Medical Alcohol reference interval and critical value innon-tolerant individuals; 50 - 100 Impairment 100 Intoxication 100 - 250 Severe Poisoning 250 - 400 Deep/possible fatal coma Estimated Creatinine Clearance Calc 63.62 ml/min [facility] Work Phone: [phone] Estimated GFR (MDRD) Amer 83 mL/min >60 [facility] Work Phone: [phone] Comment on above: GFR Calc Estimated GFR (MDRD) Non-Af Amer 68 mL/min >60 [facility] Work Phone: [phone] Comment on above: Non- GFR Calc MDMA (Ecstasy) Screen Negative < 500 ng/mL [facility] Work Phone: [phone] Urine Barbiturates Screen Negative < 200 ng/mL [facility] Work Phone: [phone] Urine Drug Screen Comment [facility] Work Phone: [phone] Comment on above: CONFIRMATORY TESTING FOR ALL [...] Screen Negative < 300 ng/mL [facility] Work Phone: Platelets bldon 10-06-2021 Platelets (Bld) [#/Vol] 232 10*3/uL 150-450 [facility] Work Phone: Serum or plasma calcium luciana urement (mass/volume)on 10-06-2021 Calcium [Mass/Vol] 8.5 mg/dL 8.5-10.1 [facility] Work Phone: Serum or plasma creatinine m easurement (mass/volume)on 10-06-2021 Creatinine [Mass/Vol] 1.16 mg/dL 0.70-1.30 [facility] Work Phone: Comment on above: The validity of the calculated GFR & GFRAA in patients over 70 years has not been determined. Clinical correlation is essential. Serum or plasma urea nitroge n measurement (mass/volume)on 10-06-2021 Urea nitrogen [Mass/Vol] 5 mg/dL 7-18 [facility] Work Phone: Thin prep Papanicolaou smear with manual screeningon 10-06-2021 Thin prep Papanicolaou smear with manual screening 8 5-15 [facility] Work Phone: Urine phencyclidine (PCP) de tectionon 10-06-2021 Phencyclidine Ql (U) Negative < 25 ng/mL [facility] Work Phone: Absolute lymphocyte counton 09-30-2021 Lymphocytes Auto (Unsp spec) [#/Vol] 1.63 10*3/uL 0.83-4.51 [facility] Work Phone: Basophil percentageon 2021 Basophils/100 WBC (Bld) 0.7 % 0-[address] [facility] Work Phone: Bilirubin [Mass/Vol] 0.40 mg/dL 0.20-1.00 [facility] Work Phone: Comment on above: For patients on eltr ombopag therapy, use of Dimension [place] TBIL is not recommended. Chloride [Moles/Vol] 97 mmol/L 98-107 [facility] Work Phone: Eosinophils/100 WBC (Bld) 0.4 % 0-5 [facility] Work Phone: Glucose [Mass/Vol] 221 mg/dL 74-106 [facility] Work Phone: Comment on above: Glucose result great er than or equal to 200 mg/dLsuggests DIABETES MELLITUS per A.D.A. criteria. Neutrophils (Bld) [#/Vol] 5.1 10*3/uL 2.0-7.7 [facility] Work Phone: Neutrophils/100 WBC (Bld) 69.1 % 47-70 [facility] Work Phone: Potassium [Moles/Vol] 3.2 mmol/L 3.5-5.1 [facility] Work Phone: Protein [Mass/Vol] 6.1 g/dL 6.4-8.2 [facility] Work Phone: Sodium [Moles/Vol] 135 mmol/L 136-145 [facility] Work Phone: WBC (Bld) [#/Vol] 7.4 10*3/uL 4.4-11.0 [facility] Work Phone: Blood erythrocytes count (nu mber/volume)on 09-30-2021 RBC (Bld) [#/Vol] 3.92 10*6/uL 4.6-6.2 [facility] Work Phone: Blood hemoglobin measurement (mass/volume)on 09-30-2021 Hemoglobin (Bld) [Mass/Vol] 13.7 g/dL 13.0-16.5 [facility] Work Phone: Blood lymphocytes/100 leukoc yteson 09-30-2021 Lymphocytes/100 WBC (Bld) 22.0 % 19-41 [facility] Work Phone: Blood monocytes/100 leukocyt eson 09-30-2021 Monocytes/100 WBC (Bld) 7.3 % 0-[address] [facility] Work Phone: Blood platelet mean volumeon 09-30-2021 Platelet mean volume (Bld) [Entitic vol] 10.4 fL 6.2-12.0 [facility] Work Phone: Determination of erythrocyte mean corpuscular volume (MCV)on 09-30-2021 MCV (RBC) [Entitic vol] 100.3 fL 80-[address] [facility] Work Phone: Hematocrit Auto (Bld) [Volum e fraction]on 09-30-2021 Hematocrit (Bld) [Volume fraction] 39.3 % 40-54 [facility] Work Phone: Laboratory - Chemistry and C hemistry - challengeon 09-30-2021 ALP [Catalytic activity/Vol] 128 U/L 45-117 [facility] Work Phone: ALT [Catalytic activity/Vol] 72 U/L 16-61 [facility] Work Phone: [phone] CO2 [Moles/Vol] 24.0 mmol/L 21.0-32.0 [facility] Work Phone: [phone] Globulin (S) [Mass/Vol] 3.3 g/dL 2.2-4.[address] [facility] Work Phone: Urea nitrogen/Creatinine [Mass ratio] 8.7 mg/mg 10-20 [facility] Work Phone: Laboratory - Hematology and Cell countson 09-30-2021 Erythrocyte distribution width (RBC) [Entitic vol] 49.8 fL 35.1-43.9 [facility] Work Phone: Erythrocyte distribution width (RBC) [Ratio] 13.5 % 11.6-14.6 [facility] Work Phone: Immature granulocytes/100 WBC (Bld) 0.500 % 0.0-0.9 [facility] Work Phone: Comment on above: IG% - Immature Granu locytes (promyelocytes, myelocytes and metamyelocytes) > 1% indicates that a LEFT SHIFT is Present. MCH (RBC) [Entitic mass] 34.9 pg 27.0-32.0 [facility] Work Phone: Nucleated RBC/100 WBC (Bld) [Ratio] 0 % 0-5 [facility] Work Phone: MCHC Auto (RBC) [Mass/Vol]on 09-30-2021 MCHC (RBC) [Mass/Vol] 34.9 g/dL 32-36 [facility] Work Phone: No Panel Informationon 09-30 Estimated Creatinine Clearance Calc 55.84 ml/min [facility] Work Phone: Estimated GFR (MDRD) Amer 68 mL/min >60 [facility] Work Phone: Comment on above: GFR Calc Estimated GFR (MDRD) Non-Af Amer 56 mL/min >60 [facility] Work Phone: Comment on above: Non- GFR Calc Ethyl Alcohol Level 141.0 mg/dL [facility] Work Phone: Comment on above: The serum:whole bloo d ethanol ratio is approximately 1.14and varies slightly with hematocrit. Medical Alcohol reference interval and critical value innon-tolerant individuals; 50 - 100 Impairment 100 Intoxication 100 - 250 Severe Poisoning 250 - 400 Deep/possible fatal coma Troponin I High Sensitivity 34 pg/mL 3.0-78.0 [facility] Work Phone: Comment on above: Please Note: New Kelly t Units and Gender Specific Reference Ranges. For more information see Policy Stat Procedure [place] High Sensitivity Troponin (TNIH) and attachments. Platelets bldon 09-30-2021 Platelets (Bld) [#/Vol] 191 10*3/uL 150-450 [facility] Work Phone: Serum or plasma albumin luciana urement (mass/volume)on 09-30-2021 Albumin [Mass/Vol] 2.8 g/dL 3.2-5.0 [facility] Work Phone: Serum or plasma albumin/glob ulin mass ratioon 09-30-2021 Albumin/Globulin [Mass ratio] 0.8 {ratio} 0.9-2.4 [facility] Work Phone: [phone] Serum or plasma calcium luciana urement (mass/volume)on 09-30-2021 Calcium [Mass/Vol] 8.4 mg/dL 8.5-10.1 [facility] Work Phone: Serum or plasma creatinine m easurement (mass/volume)on 09-30-2021 Creatinine [Mass/Vol] 1.38 mg/dL 0.70-1.30 [facility] Work Phone: Comment on above: The validity of the calculated GFR & GFRAA in patients over 70 years has not been determined. Clinical correlation is essential. Serum or plasma urea nitroge n measurement (mass/volume)on 09-30-2021 Urea nitrogen [Mass/Vol] 12 mg/dL 7-18 [facility] Work Phone: [phone] Thin prep Papanicolaou smear with manual screeningon 09-30-2021 Thin prep Papanicolaou smear with manual screening 98 U/L 15-37 [facility] Work Phone: [phone] Thin prep Papanicolaou smear with manual screening 14 5-15 [facility] Work Phone: LABORATORYOrdered By: Ade [...] ass/Vol]on 06-01-2021 Glucose [Mass/Vol] 202 mg/dL 74-106 [facility] Work Phone: Comment on above: MANAGEMENT OF PATIEN T CARE PER NURSING PROTOCOL Absolute lymphocyte counton 05-29-2021 Lymphocytes Auto (Unsp spec) [#/Vol] 0.95 10*3/uL 0.83-4.51 [facility] Work Phone: Acetaminophen level (mass/vo lume)on 05-29-2021 Acetaminophen (Unsp spec) [Mass/Vol] < 2.0 ug/mL 10.0-30.0 [facility] Work Phone: Basophil percentageon 2021 Basophils/100 WBC (Bld) 1.1 % 0-[address] [facility] Work Phone: Bilirubin [Mass/Vol] 0.20 mg/dL 0.20-1.00 [facility] Work Phone: Comment on above: For patients on eltr ombopag therapy, use of Dimension [place] TBIL is not recommended. Chloride [Moles/Vol] 102 mmol/L 98-107 [facility] Work Phone: Eosinophils/100 WBC (Bld) 0.9 % 0-5 [facility] Work Phone: Glucose [Mass/Vol] 323 mg/dL 74-106 [facility] Work Phone: Comment on above: Glucose result great er than or equal to 200 mg/dLsuggests DIABETES MELLITUS per A.D.A. criteria. Neutrophils (Bld) [#/Vol] 5.6 10*3/uL 2.0-7.7 [facility] Work Phone: Neutrophils/100 WBC (Bld) 76.3 % 47-70 [facility] Work Phone: Potassium [Moles/Vol] 3.8 mmol/L 3.5-5.1 [facility] Work Phone: Protein [Mass/Vol] 6.7 g/dL 6.4-8.2 [facility] Work Phone: Sodium [Moles/Vol] 141 mmol/L 136-145 [facility] Work Phone: WBC (Bld) [#/Vol] 7.4 10*3/uL 4.4-11.0 [facility] Work Phone: Blood erythrocytes count (nu mber/volume)on 05-29-2021 RBC (Bld) [#/Vol] 4.06 10*6/uL 4.6-6.2 [facility] Work Phone: Blood hemoglobin measurement (mass/volume)on 05-29-2021 Hemoglobin (Bld) [Mass/Vol] 13.0 g/dL 13.0-16.5 [facility] Work Phone: Blood lymphocytes/100 leukoc yteson 05-29-2021 Lymphocytes/100 WBC (Bld) 12.9 % 19-41 [facility] Work Phone: Blood monocytes/100 leukocyt eson 05-29-2021 Monocytes/100 WBC (Bld) 8.3 % 0-[address] [facility] Work Phone: Blood platelet mean volumeon 05-29-2021 Platelet mean volume (Bld) [Entitic vol] 10.9 fL 6.2-12.0 [facility] Work Phone: Determination of erythrocyte mean corpuscular volume (MCV)on 05-29-2021 MCV (RBC) [Entitic vol] 94.3 fL 80-[address] [facility] Work Phone: Direct bilirubinon 2 Bilirubin.direct [Mass/Vol] 0.12 mg/dL 0.00-0.30 [facility] Work Phone: Hematocrit Auto (Bld) [Volum e fraction]on 05-29-2021 Hematocrit (Bld) [Volume fraction] 38.3 % 40-54 [facility] Work Phone: Laboratory - Chemistry and C hemistry - challengeon 05-29-2021 ALP [Catalytic activity/Vol] 105 U/L 45-117 [facility] Work Phone: ALT [Catalytic activity/Vol] 23 U/L 16-61 [facility] Work Phone: CO2 [Moles/Vol] 29.0 mmol/L 21.0-32.0 [facility] Work Phone: Globulin (S) [Mass/Vol] 3.2 g/dL 2.2-4.[address] [facility] Work Phone: Urea nitrogen/Creatinine [Mass ratio] 10.9 mg/mg 10-20 [facility] Work Phone: Laboratory - Drug toxicology on 05-29-2021 Amphetamines Ql (U) Negative [facility] Work Phone: Benzodiazepines Ql (U) Negative [facility] Work Phone: Cannabinoids Screen Ql (U) Negative [facility] Work Phone: Cocaine Ql (U) Negative [facility] Work Phone: Opiates Ql (U) Negative [facility] Work Phone: Laboratory - Hematology and Cell countson 05-29-2021 Erythrocyte distribution width (RBC) [Entitic vol] 48.4 fL 35.1-43.9 [facility] Work Phone: [phone] Erythrocyte distribution width (RBC) [Ratio] 13.9 % 11.6-14.6 [facility] Work Phone: [phone] Immature granulocytes/100 WBC (Bld) 0.500 % 0.0-0.9 [facility] Work Phone: [phone] Comment on above: IG% - Immature Granu locytes (promyelocytes, myelocytes and metamyelocytes) > 1% indicates that a LEFT SHIFT is Present. MCH (RBC) [Entitic mass] 32.0 pg 27.0-32.0 [facility] Work Phone: [phone] Nucleated RBC/100 WBC (Bld) [Ratio] 0 % 0-5 [facility] Work Phone: [phone] MCHC Auto (RBC) [Mass/Vol]on 05-29-2021 MCHC (RBC) [Mass/Vol] 33.9 g/dL 32-36 [facility] Work Phone: [phone] Panel Informationon 05-29 MDMA (Ecstasy) Screen Negative [facility] Work Phone: [phone] Urine Barbiturates Screen Negative [facility] Work Phone: [phone] Urine Drug Screen Comment [facility] Work Phone: [phone] Comment on above: CONFIRMATORY TESTING FOR ALL [...] USE TESTMNEMONIC: [facility] Urine Methadone Screen Negative [facility] Work Phone: [phone] Estimated Creatinine Clearance Calc 71.63 ml/min [facility] Work Phone: [phone] Estimated GFR (MDRD) Amer 81 mL/min >60 [facility] Work Phone: Comment on above: GFR Calc Estimated GFR (MDRD) Non-Af Amer 67 mL/min >60 [facility] Work Phone: Comment on above: Non- GFR Calc Ethyl Alcohol Level 46.0 mg/dL [facility] Work Phone: Comment on above: The serum:whole bloo d ethanol ratio is approximately 1.14and varies slightly with hematocrit. Medical Alcohol reference interval and critical value innon-tolerant individuals; 50 - 100 Impairment 100 Intoxication 100 - 250 Severe Poisoning 250 - 400 Deep/possible fatal coma Platelets bldon 05-29-2021 Platelets (Bld) [#/Vol] 220 10*3/uL 150-450 [facility] Work Phone: Serum or plasma albumin luciana urement (mass/volume)on 05-29-2021 Albumin [Mass/Vol] 3.5 g/dL 3.2-5.0 [facility] Work Phone: Serum or plasma calcium luciana urement (mass/volume)on 05-29-2021 Calcium [Mass/Vol] 8.2 mg/dL 8.5-10.1 [facility] Work Phone: Serum or plasma creatinine m easurement (mass/volume)on 05-29-2021 Creatinine [Mass/Vol] 1.19 mg/dL 0.70-1.30 [facility] Work Phone: Comment on above: The validity of the calculated GFR & GFRAA in patients over 70 years has not been determined. Clinical correlation is essential. Serum or plasma salicylates measurement (mass/volume)on 05-29-2021 Salicylates [Mass/Vol] 12.6 mg/dL 2.8-20.0 [facility] Work Phone: Serum or plasma urea nitroge n measurement (mass/volume)on 05-29-2021 Urea nitrogen [Mass/Vol] 13 mg/dL 7-18 [facility] Work Phone: Thin prep Papanicolaou smear with manual screeningon 05-29-2021 Thin prep Papanicolaou smear with manual screening 33 U/L 15-37 [facility] Work Phone: Thin prep Papanicolaou smear with manual screening 10 5-15 [facility] Work Phone: [phone] Urine phencyclidine (PCP) de tectionon 05-29-2021 Phencyclidine Ql (U) Negative [facility] Work Phone: [phone] Glucose Glucometer (BldC) [M ass/Vol]on 05-22-2021 Glucose [Mass/Vol] 213 mg/dL 74-106 [facility] Work Phone: Comment on above: MANAGEMENT OF PATIEN T CARE PER NURSING PROTOCOL No Panel Informationon 05-22 Ethyl Alcohol Level 101.0 mg/dL [facility] Work Phone: Comment on above: The serum:whole bloo d ethanol ratio is approximately 1.14and varies slightly with hematocrit. Medical Alcohol reference interval and critical value innon-tolerant individuals; 50 - 100 Impairment 100 Intoxication 100 - 250 Severe Poisoning 250 - 400 Deep/possible fatal coma Absolute lymphocyte counton 05-21-2021 Lymphocytes Auto (Unsp spec) [#/Vol] 1.24 10*3/uL 0.83-4.51 [facility] Work Phone: Basophil percentageon 2021 Basophils/100 WBC (Bld) 2.0 % 0-[address] [facility] Work Phone: [phone] Bilirubin [Mass/Vol] 0.20 mg/dL 0.20-1.00 [facility] Work Phone: [phone] Comment on above: For patients on eltr ombopag therapy, use of Dimension [place] TBIL is not recommended. Chloride [Moles/Vol] 105 mmol/L 98-107 [facility] Work Phone: Eosinophils/100 WBC (Bld) 2.2 % 0-5 [facility] Work Phone: [phone] Glucose [Mass/Vol] 440 mg/dL 74-106 [facility] Work Phone: [phone] Comment on above: Glucose result great er than or equal to 200 mg/dLsuggests DIABETES MELLITUS per A.D.A. criteria. Neutrophils (Bld) [#/Vol] 4.0 10*3/uL 2.0-7.7 [facility] Work Phone: [phone] Neutrophils/100 WBC (Bld) 66.7 % 47-70 [facility] Work Phone: [phone] Potassium [Moles/Vol] 3.5 mmol/L 3.5-5.1 [facility] Work Phone: [phone] Protein [Mass/Vol] 6.7 g/dL 6.4-8.2 [facility] Work Phone: [phone] Sodium [Moles/Vol] 142 mmol/L 136-145 [facility] Work Phone: [phone] WBC (Bld) [#/Vol] 6.0 10*3/uL 4.4-11.0 [facility] Work Phone: [phone] Blood erythrocytes count (nu mber/volume)on 05-21-2021 RBC (Bld) [#/Vol] 4.36 10*6/uL 4.6-6.2 [facility] Work Phone: [phone] Blood hemoglobin measurement (mass/volume)on 05-21-2021 Hemoglobin (Bld) [Mass/Vol] 14.1 g/dL 13.0-16.5 [facility] Work Phone: [phone] Blood lymphocytes/100 leukoc yteson 05-21-2021 Lymphocytes/100 WBC (Bld) 20.5 % 19-41 [facility] Work Phone: [phone] Blood monocytes/100 leukocyt eson 05-21-2021 Monocytes/100 WBC (Bld) 8.3 % 0-[address] [facility] Work Phone: [phone] Blood platelet mean volumeon 05-21-2021 Platelet mean volume (Bld) [Entitic vol] 9.9 fL 6.2-12.0 [facility] Work Phone: [phone] Determination of erythrocyte mean corpuscular volume (MCV)on 05-21-2021 MCV (RBC) [Entitic vol] 93.8 fL 80-[address] [facility] Work Phone: Hematocrit Auto (Bld) [Volum e fraction]on 05-21-2021 Hematocrit (Bld) [Volume fraction] 40.9 % 40-54 [facility] Work Phone: INR in Blood by Coagulation assayon 05-21-2021 INR Coag (Bld) [Relative time] 1.1 {INR} [facility] Work Phone: Laboratory - Chemistry and C hemistry - challengeon 05-21-2021 ALP [Catalytic activity/Vol] 109 U/L 45-117 [facility] Work Phone: ALT [Catalytic activity/Vol] 23 U/L 16-61 [facility] Work Phone: CO2 [Moles/Vol] 27.0 mmol/L 21.0-32.0 [facility] Work Phone: Globulin (S) [Mass/Vol] 3.3 g/dL 2.2-4.[address] [facility] Work Phone: Urea nitrogen/Creatinine [Mass ratio] 8.5 mg/mg 10-20 [facility] Work Phone: Laboratory - Coagulationon 0 05-21-2021 PT Coag (PPP) [Time] 13.9 s 11.7-14.9 [facility] Work Phone: Laboratory - Drug toxicology on 05-21-2021 Amphetamines Ql (U) Negative [facility] Work Phone: Benzodiazepines Ql (U) Negative [facility] Work Phone: Cannabinoids Screen Ql (U) Negative [facility] Work Phone: Cocaine Ql (U) Negative [facility] Work Phone: Opiates Ql (U) Negative [facility] Work Phone: Laboratory - Hematology and Cell countson 05-21-2021 Erythrocyte distribution width (RBC) [Entitic vol] 48.5 fL 35.1-43.9 [facility] Work Phone: [phone] Erythrocyte distribution width (RBC) [Ratio] 13.9 % 11.6-14.6 [facility] Work Phone: [phone] Immature granulocytes/100 WBC (Bld) 0.300 % 0.0-0.9 [facility] Work Phone: [phone] Comment on above: IG% - Immature Granu locytes (promyelocytes, myelocytes and metamyelocytes) > 1% indicates that a LEFT SHIFT is Present. MCH (RBC) [Entitic mass] 32.3 pg 27.0-32.0 [facility] Work Phone: [phone] Nucleated RBC/100 WBC (Bld) [Ratio] 0 % 0-5 [facility] Work Phone: [phone] MCHC Auto (RBC) [Mass/Vol]on 05-21-2021 MCHC (RBC) [Mass/Vol] 34.5 g/dL 32-36 [facility] Work Phone: [phone] No Panel Informationon 05-21 MDMA (Ecstasy) Screen Negative [facility] Work Phone: [phone] Urine Barbiturates Screen Negative [facility] Work Phone: [phone] Urine Drug Screen Comment [facility] Work Phone: [phone] Comment on above: CONFIRMATORY TESTING FOR ALL [...] USE TESTMNEMONIC: [facility] Urine Methadone Screen Negative [facility] Work Phone: [phone] Estimated Creatinine Clearance Calc 68.24 ml/min [facility] Work Phone: [phone] Estimated GFR (MDRD) Amer 81 mL/min >60 [facility] Work Phone: Comment on above: GFR Calc Estimated GFR (MDRD) Non-Af Amer 67 mL/min >60 [facility] Work Phone: Comment on above: Non- GFR Calc Platelets bldon 05-21-2021 Platelets (Bld) [#/Vol] 232 10*3/uL 150-450 [facility] Work Phone: Serum or plasma albumin luciana urement (mass/volume)on 05-21-2021 Albumin [Mass/Vol] 3.4 g/dL 3.2-5.0 [facility] Work Phone: Serum or plasma albumin/glob ulin mass ratioon 05-21-2021 Albumin/Globulin [Mass ratio] 1.0 {ratio} 0.9-2.4 [facility] Work Phone: Serum or plasma calcium luciana urement (mass/volume)on 05-21-2021 Calcium [Mass/Vol] 8.2 mg/dL 8.5-10.1 [facility] Work Phone: Serum or plasma creatinine m easurement (mass/volume)on 05-21-2021 Creatinine [Mass/Vol] 1.18 mg/dL 0.70-1.30 [facility] Work Phone: Comment on above: The validity of the calculated GFR & GFRAA in patients over 70 years has not been determined. Clinical correlation is essential. Serum or plasma urea nitroge n measurement (mass/volume)on 05-21-2021 Urea nitrogen [Mass/Vol] 10 mg/dL 7-18 [facility] Work Phone: [phone] Thin prep Papanicolaou smear with manual screeningon 05-21-2021 Thin prep Papanicolaou smear with manual screening 18 U/L 15-37 [facility] Work Phone: [phone] Thin prep Papanicolaou smear with manual screening 10 5-15 [facility] Work Phone: [phone] Urine phencyclidine (PCP) de tectionon 05-21-2021 Phencyclidine Ql (U) Negative [facility] Work Phone: Absolute lymphocyte counton 05-05-2021 Lymphocytes Auto (Unsp spec) [#/Vol] 1.28 10*3/uL 0.83-4.51 [facility] Work Phone: Basophil percentageon 2021 Basophils/100 WBC (Bld) 0.9 % 0-[address] [facility] Work Phone: Chloride [Moles/Vol] 106 mmol/L 98-107 [facility] Work Phone: Eosinophils/100 WBC (Bld) 2.5 % 0-5 [facility] Work Phone: Glucose [Mass/Vol] 96 mg/dL 74-106 [facility] Work Phone: Neutrophils (Bld) [#/Vol] 4.7 10*3/uL 2.0-7.7 [facility] Work Phone: Neutrophils/100 WBC (Bld) 68.2 % 47-70 [facility] Work Phone: Potassium [Moles/Vol] 3.7 mmol/L 3.5-5.1 [facility] Work Phone: Sodium [Moles/Vol] 139 mmol/L 136-145 [facility] Work Phone: WBC (Bld) [#/Vol] 6.9 10*3/uL 4.4-11.0 [facility] Work Phone: Blood erythrocytes count (nu mber/volume)on 05-05-2021 RBC (Bld) [#/Vol] 3.88 10*6/uL 4.6-6.2 [facility] Work Phone: Blood hemoglobin measurement (mass/volume)on 05-05-2021 Hemoglobin (Bld) [Mass/Vol] 12.4 g/dL 13.0-16.5 [facility] Work Phone: Blood lymphocytes/100 leukoc yteson 05-05-2021 Lymphocytes/100 WBC (Bld) 18.6 % 19-41 [facility] Work Phone: Blood monocytes/100 leukocyt eson 05-05-2021 Monocytes/100 WBC (Bld) 9.5 % 0-[address] [facility] Work Phone: [phone] Blood platelet mean volumeon 05-05-2021 Platelet mean volume (Bld) [Entitic vol] 11.0 fL 6.2-12.0 [facility] Work Phone: [phone] Determination of erythrocyte mean corpuscular volume (MCV)on 05-05-2021 MCV (RBC) [Entitic vol] 93.6 fL 80-[address] [facility] Work Phone: [phone] Glucose Glucometer (BldC) [M ass/Vol]on 05-05-2021 Glucose [Mass/Vol] 183 mg/dL 74-106 [facility] Work Phone: Comment on above: MANAGEMENT OF PATIEN T CARE PER NURSING PROTOCOL Hematocrit Auto (Bld) [Volum e fraction]on 05-05-2021 Hematocrit (Bld) [Volume fraction] 36.3 % 40-54 [facility] Work Phone: Laboratory - Chemistry and C hemistry - challengeon 05-05-2021 CO2 [Moles/Vol] 29.0 mmol/L 21.0-32.0 [facility] Work Phone: [phone] Urea nitrogen/Creatinine [Mass ratio] 6.7 mg/mg 10-20 [facility] Work Phone: [phone] Laboratory - Hematology and Cell countson 05-05-2021 Erythrocyte distribution width (RBC) [Entitic vol] 47.8 fL 35.1-43.9 [facility] Work Phone: [phone] Erythrocyte distribution width (RBC) [Ratio] 13.9 % 11.6-14.6 [facility] Work Phone: [phone] Immature granulocytes/100 WBC (Bld) 0.300 % 0.0-0.9 [facility] Work Phone: [phone] Comment on above: IG% - Immature Granu locytes (promyelocytes, myelocytes and metamyelocytes) > 1% indicates that a LEFT SHIFT is Present. MCH (RBC) [Entitic mass] 32.0 pg 27.0-32.0 [facility] Work Phone: [phone] Nucleated RBC/100 WBC (Bld) [Ratio] 0 % 0-5 [facility] Work Phone: [phone] MCHC Auto (RBC) [Mass/Vol]on 05-05-2021 MCHC (RBC) [Mass/Vol] 34.2 g/dL 32-36 [facility] Work Phone: [phone] Panel Informationon 05-05 Estimated Creatinine Clearance Calc 79.39 ml/min [facility] Work Phone: [phone] Estimated GFR (MDRD) Amer 94 mL/min >60 [facility] Work Phone: [phone] Comment on above: GFR Calc Estimated GFR (MDRD) Non-Af Amer 78 mL/min >60 [facility] Work Phone: [phone] Comment on above: Non- GFR Calc Platelets bldon 05-05-2021 Platelets (Bld) [#/Vol] 192 10*3/uL 150-450 [facility] Work Phone: [phone] Serum or plasma calcium luciana urement (mass/volume)on 05-05-2021 Calcium [Mass/Vol] 8.1 mg/dL 8.5-10.1 [facility] Work Phone: [phone] Serum or plasma creatinine m easurement (mass/volume)on 05-05-2021 Creatinine [Mass/Vol] 1.04 mg/dL 0.70-1.30 [facility] Work Phone: [phone] Comment on above: The validity of the calculated GFR & GFRAA in patients over 70 years has not been determined. Clinical correlation is essential. Serum or plasma urea nitroge n measurement (mass/volume)on 05-05-2021 Urea nitrogen [Mass/Vol] 7 mg/dL 7-18 [facility] Work Phone: Thin prep Papanicolaou smear with manual screeningon 05-05-2021 Thin prep Papanicolaou smear with manual screening 4 5-15 [facility] Work Phone: [phone] Absolute lymphocyte counton 05-04-2021 Lymphocytes Auto (Unsp spec) [#/Vol] 0.91 10*3/uL 0.83-4.51 [facility] Work Phone: Basophil percentageon 2021 Basophils/100 WBC (Bld) 0.7 % 0-[address] [facility] Work Phone: Chloride [Moles/Vol] 100 mmol/L 98-107 [facility] Work Phone: Eosinophils/100 WBC (Bld) 0.7 % 0-5 [facility] Work Phone: Glucose [Mass/Vol] 122 mg/dL 74-106 [facility] Work Phone: Comment on above: Fasting Glucose resu lt from 100 to 125 mg/dL suggests IMPAIRED HOMEOSTASIS per A.D.A. criteria. Neutrophils (Bld) [#/Vol] 8.5 10*3/uL 2.0-7.7 [facility] Work Phone: Neutrophils/100 WBC (Bld) 81.1 % 47-70 [facility] Work Phone: [phone] Potassium [Moles/Vol] 2.9 mmol/L 3.5-5.1 [facility] Work Phone: [phone] Sodium [Moles/Vol] 139 mmol/L 136-145 [facility] Work Phone: [phone] WBC (Bld) [#/Vol] 10.5 10*3/uL 4.4-11.0 [facility] Work Phone: Blood erythrocytes count (nu mber/volume)on 05-04-2021 RBC (Bld) [#/Vol] 4.37 10*6/uL 4.6-6.2 [facility] Work Phone: Blood hemoglobin measurement (mass/volume)on 05-04-2021 Hemoglobin (Bld) [Mass/Vol] 14.1 g/dL 13.0-16.5 [facility] Work Phone: Blood lymphocytes/100 leukoc yteson 05-04-2021 Lymphocytes/100 WBC (Bld) 8.7 % 19-41 [facility] Work Phone: Blood monocytes/100 leukocyt eson 05-04-2021 Monocytes/100 WBC (Bld) 8.4 % 0-[address] [facility] Work Phone: Blood platelet mean volumeon 05-04-2021 Platelet mean volume (Bld) [Entitic vol] 11.4 fL 6.2-12.0 [facility] Work Phone: Determination of erythrocyte mean corpuscular volume (MCV)on 05-04-2021 MCV (RBC) [Entitic vol] 96.1 fL 80-[address] [facility] Work Phone: Hematocrit Auto (Bld) [Volum e fraction]on 05-04-2021 Hematocrit (Bld) [Volume fraction] 42.0 % 40-54 [facility] Work Phone: Laboratory - Chemistry and C hemistry - challengeon 05-04-2021 Magnesium [Mass/Vol] 1.7 mg/dL 1.6-2.6 [facility] Work Phone: CO2 [Moles/Vol] 32.0 mmol/L 21.0-32.0 [facility] Work Phone: Urea nitrogen/Creatinine [Mass ratio] 4.8 mg/mg 10-20 [facility] Work Phone: Laboratory - Hematology and Cell countson 05-04-2021 Erythrocyte distribution width (RBC) [Entitic vol] 49.2 fL 35.1-43.9 [facility] Work Phone: Erythrocyte distribution width (RBC) [Ratio] 14.0 % 11.6-14.6 [facility] Work Phone: Immature granulocytes/100 WBC (Bld) 0.400 % 0.0-0.9 [facility] Work Phone: Comment on above: IG% - Immature Granu locytes (promyelocytes, myelocytes and metamyelocytes) > 1% indicates that a LEFT SHIFT is Present. MCH (RBC) [Entitic mass] 32.3 pg 27.0-32.0 [facility] Work Phone: Nucleated RBC/100 WBC (Bld) [Ratio] 0 % 0-5 [facility] Work Phone: MCHC Auto (RBC) [Mass/Vol]on 05-04-2021 MCHC (RBC) [Mass/Vol] 33.6 g/dL 32-36 [facility] Work Phone: No Panel Informationon 05-04 Troponin I High Sensitivity 38 pg/mL 3.0-78.0 [facility] Work Phone: Comment on above: Please Note: New Kelly t Units and Gender Specific Reference Ranges. For more information see Policy Stat Procedure [place] High Sensitivity Troponin (TNIH) and attachments. Estimated Creatinine Clearance Calc 68.19 ml/min [facility] Work Phone: Estimated GFR (MDRD) Amer 76 mL/min >60 [facility] Work Phone: Comment on above: GFR Calc Estimated GFR (MDRD) Non-Af Amer 63 mL/min >60 [facility] Work Phone: Comment on above: Non- GFR Calc Troponin I High Sensitivity 42 pg/mL 3.0-78.0 [facility] Work Phone: Comment on above: Please Note: New Kelly t Units and Gender Specific Reference Ranges. For more information see Policy Stat Procedure [place] High Sensitivity Troponin (TNIH) and attachments. Platelets bldon 05-04-2021 Platelets (Bld) [#/Vol] 240 10*3/uL 150-450 [facility] Work Phone: Serum or plasma calcium luciana urement (mass/volume)on 05-04-2021 Calcium [Mass/Vol] 8.8 mg/dL 8.5-10.1 [facility] Work Phone: Serum or plasma creatinine m easurement (mass/volume)on 05-04-2021 Creatinine [Mass/Vol] 1.25 mg/dL 0.70-1.30 [facility] Work Phone: Comment on above: The validity of the calculated GFR & GFRAA in patients over 70 years has not been determined. Clinical correlation is essential. Serum or plasma urea nitroge n measurement (mass/volume)on 05-04-2021 Urea nitrogen [Mass/Vol] 6 mg/dL 7-18 [facility] Work Phone: Thin prep Papanicolaou smear with manual screeningon 05-04-2021 Thin prep Papanicolaou smear with manual screening 7 5-15 [facility] Work Phone: LABORATORYOrdered By: Mercedes Chun on 05-02-2021 Blood Glucose Interventions Notify physician (05/02/21 3:24 PM) [facility] Work Phone: Blood Glucose Testing Reason Routine (05/02/21 3:24 PM) [facility] Work Phone: Glucose [Mass/Vol] 231 mg/dL Invalid Interpretation Code 70 - 110 mg/dL [facility] Work Phone: Blood Glucose Testing Reason Routine (05/02/21 2:40 PM) [facility] Work Phone: Glucose [Mass/Vol] 75 mg/dL Invalid Interpretation Code 70 - 110 mg/dL [facility] Work Phone: Time of Stated Blood Glucose [id number] [facility] Work Phone: Blood Glucose Interventions Notify physician (05/02/21 1:40 PM) [facility] Work Phone: Blood Glucose Testing Reason Routine (05/02/21 1:40 PM) [facility] Work Phone: Glucose [Mass/Vol] 355 mg/dL Invalid Interpretation Code 70 - 110 mg/dL [facility] Work Phone: LABORATORYOrdered By: Rodrigo [...] blood sugar, Notify physician (05/02/21 2:40 PM) [facility] Work Phone: LABORATORYOrdered By: Ade [...] Chemistry S EMERGENCY REPORTon 8 EMERGENCY REPORT [facility] EMERGENCY ROOM REPORT NAME ACCOUNT SEX AGE ADMIT DISCHARGE PT MED. RECORD# NUMBER DATE DATE TYPE ANEESH [id number] Yris 57 11/09/17 3 KIMBERLY [id number] ROOM: ER DATE OF : 1960 DICTATING [...] has also had heart disease with previous NM. Apparently, he does have a pacemaker in [...] Dr. Brock, who will arrange transfer to [place]. Dictated By: Bandar Daigle MD 11/09/17 15:22 JOB #: [id number] Transcribed By: am 11/09/17 15:30 Electronically signed by: YO Daigle M.D. 11/17/17 07:38 Page 2 of 2 KIMBERLY MELENDREZ Emergency Room Report Normal [facility] ALCOHOL-BLOOD MEDICALon 10-0 Ethanol mass conc 212 mg/dL High 0 - 50 [facility] Comment on above: Performed By: #### 2 [id number] ####[facility],[address] [place] [address]876 CBCon 11-09-2017 Basophils Auto #/vol (Bld) 0.20 x10EE3/UL High 0.00 - 0.10 [facility] Comment on above: Performed By: #### 2 [id number] ####[facility],[address] [place] [address]28 Basophils/100 WBC Auto (Bld) 2.8 % High 0.0 - 2.0 [facility] Comment on above: Performed By: #### 2 69673 ####[facility],[address] [place] [address]133 CBC Normal [facility] Comment on above: Result Comment: CBC- COMPLETE BLOOD COUNT Performed By: #### 2 [id number] ####[facility],[address] [place] [address]16 Eosinophils Auto #/vol (Bld) 0.20 x10EE3/UL Normal 0.00 - 0.50 [facility] Comment on above: Performed By: #### 2 26689 ####[facility],[address] [place] [address] Eosinophils/100 WBC Auto (Bld) 2.6 % Normal 0.0 - 7.0 [facility] Comment on above: Performed By: #### 2 86294 ####[facility],[address] [place] [address] Erythrocyte distribution width Auto Ratio (RBC) 14.5 % Normal 12.0 - 15.6 [facility] Comment on above: Performed By: #### 2 63693 ####[facility],[address] [place] [address] Hematocrit Auto Volume Fraction (Bld) 38.9 % Low 40.0 - 52.0 [facility] Comment on above: Performed By: #### 2 35839 ####[facility],[address] [place] [address] Hemoglobin mass conc (Bld) 13.0 g/dL Normal 13.0 - 17.5 [facility] Comment on above: Performed By: #### 2 64128 ####[facility],[address] [place] [address] Lymphocytes Auto #/vol (Bld) 2.10 x10EE3/UL Normal 0.80 - 2.80 [facility] Comment on above: Performed By: #### 2 74010 ####[facility],[address] [place], [place] [id number] Lymphocytes/100 WBC Auto (Bld) 29.8 % Normal 20.0 - 45.0 [facility] Comment on above: Performed By: #### 2 17391 ####[facility],[address] [place] [address] MANUAL DIFF N/A Normal [facility] Comment on above: Performed By: #### 2 87928 ####[facility],[address] [place], [place] [id number] MCH Auto Entitic mass (RBC) 31 pg Normal 27 - 33 [facility] Comment on above: Performed By: #### 2 90984 ####[place] [address] MCHC Auto mass conc (RBC) 33 X10 3 Normal 32 - 36 [facility] Comment on above: Performed By: #### 2 35389 ####[facility],[address] [place] [address] MCV Auto Entitic volume (RBC) 94 fL Normal 81 - 98 [facility] Comment on above: Performed By: #### 2 10872 ####[place] [address] Monocytes Auto #/vol (Bld) 0.60 x10EE3/UL Normal 0.20 - 1.00 [facility] Comment on above: Performed By: #### 2 07833 ####[facility],[address] [place] [address] MONOS % 8.9 % Normal 0.0 - 10.0 [facility] Comment on above: Performed By: #### 2 05885 ####[facility],[address] [place] [address] Morphology Interp Jose Carlos (Bld) N/A Normal [facility] Comment on above: Result Comment: {CD] Performed By: #### 2 81600 ####[facility],[address] [place] [address] Neutrophils Auto #/vol (Bld) 3.90 x10EE3/UL Normal 1.50 - 7.10 [facility] Comment on above: Performed By: #### 2 64977 ####[facility],[address] [place] [address] Neutrophils/100 WBC Auto (Bld) 55.9 % Normal 46.0 - 76.0 [facility] Comment on above: Performed By: #### 2 52733 ####[place] [address],[place] [address] Platelet mean volume Auto Entitic volume (Bld) 9.2 fL Normal 6.4 - 10.5 [facility] Comment on above: Result Comment: AUTO MATED DIFFERENTIAL Performed By: #### 2 31747 ####[facility],[address] [place] [address]5790 Platelets Auto #/vol (Bld) 225 x10EE3/UL Normal 150 - 450 [facility] Comment on above: Performed By: #### 2 94743 ####[facility],[address] [place] [address] 27877 RBC Auto #/vol (Bld) 4.15 x 10EE6/UL Low 4.50 - 6.0 0 [facility] Comment on above: Performed By: #### 2 52411 ####[facility],[address] [place] [address]75 WBC Auto #/vol (Bld) 7.0 x 10EE3/UL Normal 4.5 - 10.8 [facility] Comment on above: Performed By: #### 2 01313 ####[facility],[address] [place] [address] 21653 CHEST 1 VIEWon 11-09-2017 CHEST 1 VIEW [place] [address] Patient: KIMBERLY MELENDREZ Phone#: : 1960 Age: 57 Gender: M Pt. Type: ER Account: [id number] Location: 05 Ordering: BANDAR DAIGLE Exam Date: 11/09/2017/12:50 Family Phys: Charge Code: [id number] Physician: [place] Order #: [id number] DLP Dose#: PROCEDURE: X-RAY CHEST 1 VIEW [...] Arevalo MD on 11/09/2017 at 13:07 Normal [facility] CMP with eGFRon 11-09-2017 Age Reported 57 years Normal [facility] Comment on above: Performed By: #### 2 [id number] ####[facility],[address] [place] [address] 26108 Albumin mass conc 3.9 g/dL Normal 3.4 - 4.8 [facility] Comment on above: Performed By: #### 2 52726 ####[address] [address] Albumin/Globulin mass ratio 1.4 {ratio} Normal 0.9 - 1.6 [facility] Comment on above: Performed By: #### 2 61373 ####[facility],[address] [place] [address] 48841 ALK PHOS 113 U/L Normal 38 - 126 [facility] Comment on above: Performed By: #### 2 25349 ####[address] [address] ALT/SGPT 66 U/L High 10 - 40 [facility] Comment on above: Performed By: #### 2 56993 ####[facility],[address] [place] [address] 58827 Anion gap 3 molar conc 11 mmol/L Normal 10 - 20 [facility] Comment on above: Performed By: #### 2 81907 ####[facility],[address] [place] [address] 59130 AST/SGOT 41 U/L High 13 - 39 [facility] Comment on above: Performed By: #### 2 55674 ####[facility],[address] [place] [address] B/C RATIO 15 ratio Normal 0 - 30 [facility] Comment on above: Performed By: #### 2 88365 ####[facility],[address] [place] [address] 74104 Bilirubin mass conc 0.3 mg/dL Normal 0.0 - 1.5 [facility] Comment on above: Performed By: #### 2 00571 ####[facility],[address] [place] [address]909 Calcium mass conc 8.6 mg/dL Normal 8.6 - 10.2 [facility] Comment on above: Performed By: #### 2 49762 ####[facility],[address] [place] [address] 95941 Chloride molar conc 100 mmol/L Normal 98 - 107 [facility] Comment on above: Performed By: #### 2 64731 ####[facility],[address] [place] [address] 95452 CO2 molar conc 26.3 mmol/L Normal 21.0 - 31.0 [facility] Comment on above: Performed By: #### 2 87411 ####[facility],[address] [place] [address] 59833 Creatinine mass conc 1.1 mg/dL Normal 0.7 - 1.3 [facility] Comment on above: Performed By: #### 2 94136 ####[facility],[address] [place] [address] 65184 GFR/1.73 sq M predicted among non-blacks MDRD vol rate/area (S/P/Bld) mL/min/{1.73_m2} Normal 60 - 999 [facility] Comment on above: Performed By: #### 2 91980 ####[facility],[address] [place] [address] 57175 Result Comment: ACCO RDING TO THE NATIONAL KIDNEY DISEASE EDUCATION PROGRAM(NKDE), A NORMAL eGFRIS A VALUE GREATER THAN OR EQUAL TO 60 ML/MIN/1.73 SQ METERS.CHRONIC KIDNEY DISEASE: <60mL/MIN/1.73 SQ METERSKIDNEY FAILURE: <15mL/MIN/1.73 SQ METERSTHIS TEST SHOULD ONLY BE USED FOR PATIENTS 18 YEARS OF AGE AND OLDER. GFR/1.73 sq M predicted among non-blacks MDRD vol rate/area (S/P/Bld) Normal [facility] Comment on above: Result Comment: COMP REHENSIVE METABOLIC PANEL Performed By: #### 2 87646 ####[address] [address] Globulin Calculated mass conc (S) 2.7 g/dL Normal 1.5 - 3.8 [facility] Comment on above: Performed By: #### 2 66184 ####[address] [address] Glucose mass conc 600 mg/dL Critically high 74 - 106 [facility] Comment on above: Result Comment: { CA LLED TO Bernadette/1330{ READ BACK BY om2102/h/lm Performed By: #### 2 19320 ####[address] [address] Potassium molar conc 4.1 mmol/L Normal 3.5 - 5.1 [facility] Comment on above: Performed By: #### 2 74160 ####[address] [address] Protein mass conc 6.6 g/dL Normal 6.4 - 8.3 [facility] Comment on above: Performed By: #### 2 87695 ####[address] [address] Sodium molar conc 133 mmol/L Low 136 - 145 [facility] Comment on above: Performed By: #### 2 93820 ####[address] [address] Urea nitrogen mass conc 17 mg/dL Normal 6 - 20 [facility] Comment on above: Performed By: #### 2 23611 ####[facility],[address] [place] [address] 23620 DRUG SCREEN URINE MEDICon AMPHETAMINES Negative Normal [facility] Comment on above: Performed By: #### 2 81028 ####[facility],[address] [place] [address] 44821 B-DIAZEPINES Negative Normal [facility] Comment on above: Performed By: #### 2 61660 ####[facility],[address] [place] [address] 52784 BARBITURATES Negative [facility] Comment on above: Performed By: #### 2 88285 ####[facility],[address] [place] [address] 92949 COCAINE Negative [facility] Comment on above: Performed By: #### 2 25533 ####[facility],[address] [place] [address] 45378 DRUG SCREEN URINE MEDIC Normal [facility] Comment on above: Result Comment: DRUG SCREEN - URINE Performed By: #### 2 31103 ####[facility],[address] [place] [address] 28181 METHADONE Negative [facility] Comment on above: Performed By: #### 2 67729 ####[facility],[address] [place] [address] 30966 OPIATES Negative [facility] Comment on above: Performed By: #### 2 37520 ####[facility],[address] [place] [address] 65859 PCP Negative [facility] Comment on above: Performed By: #### 2 65479 ####[facility],[address] [place] [address] 06571 TCA Negative [facility] Comment on above: Performed By: #### 2 46323 ####[facility],[address] [place] [address] THC Negative Normal [facility] Comment on above: Result Comment: CHARLEY ENTS RECEIVING PROTON PUMP INHIBITORS MAY DEMONSTRATE FALSE POSITIVETHC/CANNABINOID RESULTS. AN ALTERNATIVE CONFIRMATORY METHOD SHOULD BE CONSIDEREDTO VERIFY POSITIVE RESULTS. Performed By: #### 2 16476 ####[facility],[address] [place] [address] HGB A1Con 11-09-2017 Hemoglobin A1c/Hemoglobin.total mass fraction (Bld) 12.0 % High 4.4 - 6.4 [facility] Comment on above: Result Comment: {HB] {A1] Performed By: #### 2 52815 ####[facility],[address] [place] [address] HISTORY AND PHYSICALon 11-09 HISTORY AND PHYSICAL [facility] HISTORY & PHYSICAL NAME ACCOUNT SEX AGE ADMIT DISCHARGE PT MED. RECORD# NUMBER DATE DATE TYPE ANEESH [id number] Yris 57 11/09/17 3 KIMBERLY [id number] ROOM: ER DATE OF : 64 DICTATING PHYSICIAN: Kye Brock The patient is seen in the emergency department at [facility] on November 09 and is transferred to [facility]. CHIEF COMPLAINT: Intoxication. HISTORY OF PRESENT ILLNESS: [...] Crisis Center. He is being sent to [facility] for further treatment and alcohol withdrawal protocol. [...] proper withdraw policy. I will transfer to [facility] to my service where we may apply the [facility] Withdrawal Assessment protocol and properly detoxify him. Once he is no longer under the influence, Crisis will be asked to see him at that time. It would not be inappropriate to call them in with his present state. Dictated By: Kye Brock MD 11/09/17 16:19 JOB #: [id number] Transcribed By: [email or web address] 11/09/17 16:51 Electronically signed by: Al Brock M.D. 11/09/17 20:19 Update to H&P: [ ] No changes: I have examined the patient and reviewed the H&P and there are no changes. [ ] As previously dictated with the following changes: PHYSICIAN SIGNATURE: __ TIME: DATE: Page 2 of 3 KIMBERLY MELENDREZ History & Physical Normal [facility] KETONE, BLOOD, QUALon 2017 KETONES Negative Normal ORIN - NEGATIVE [facility] Comment on above: Result Comment: SPEC IMEN SERUM Performed By: #### 2 15348 ####[facility],[address] [place], [place] [id number] LACTATEon 11-09-2017 Lactate molar conc 14.5 mg/dL Normal 4.5 - 18.0 [facility] Comment on above: Performed By: #### 2 39236 ####[facility],[address] [place] [address] 39039 Lactate molar conc 18.5 mg/dL High 4.5 - 18.0 [facility] Comment on above: Performed By: #### 2 90543 ####[facility],[address] [place], [place] [id number] TROPONINon 11-09-2017 Troponin I.cardiac mass conc 0.01 ng/mL Normal 0.00 - 0.05 [facility] Comment on above: Result Comment: Elev ated [...] as heterophile antibodies). Performed By: #### 2 28983 ####[place] [address] Troponin I.cardiac mass conc 0.01 ng/mL Normal 0.00 - 0.05 [facility] Comment on above: Result Comment: Elev ated [...] as heterophile antibodies). Performed By: #### 2 96607 ####[place] [address] URINALYSISon 11-09-2017 Bilirubin Negative Normal NORMAL: NEGATIVE [facility] Comment on above: Performed By: #### 2 25604 ####[place] [address] Blood Negative Normal NORMAL: NEGATIVE [facility] Comment on above: Performed By: #### 2 59907 ####[facility],[address] [place] [address] Clarity clear Normal NORMAL: CLEAR [facility] Comment on above: Performed By: #### 2 24821 ####[place] [address] Color p.yel Normal NORMAL: YELLOW [facility] Comment on above: Performed By: #### 2 39004 ####[place] [address] Glucose 1000 Abnormal NORMAL: NORMAL [facility] Comment on above: Performed By: #### 2 94066 ####[place] [address] Ketone Negative Normal NORMAL: NEGATIVE [facility] Comment on above: Performed By: #### 2 90306 ####[facility],[address] [place] [address],[facility] [address] Leukocytes Negative Normal NORMAL: NEGATIVE [facility] Comment on above: Performed By: #### 2 24630 ####[facility],[address] [place] [address] 25191 Microscopic NOT INDICATED Normal [facility] Comment on above: Performed By: #### 2 22559 ####[facility],[address] [place] [address] 90283 Nitrite Negative Normal NORMAL: NEGATIVE [facility] Comment on above: Performed By: #### 2 44576 ####[facility],[address] [place] [address] 80065 ph 6 Normal NORMAL: 5.0-8.0 [facility] Comment on above: Performed By: #### 2 66561 ####[facility],[address] [place] [address] 34544 Protein mass conc Negative Normal NORMAL: NEGATIVE [facility] Comment on above: Performed By: #### 2 15637 ####[facility],[address] [place] [address] 17061 Sp [place] 1.010 Normal NORMAL: 1.010-1.030 [facility] Comment on above: Performed By: #### 2 97468 ####[facility],[address] [place] [address] 01722 Specimen type UNSPECIFIED Normal [facility] Comment on above: Performed By: #### 2 60899 ####[facility],[address] [place] [address] 79604 Urobilinog NORM Normal NORMAL: NORMAL [facility] Comment on above: Performed By: #### 2 09089 ####[facility],[address] [place] [address] 79365 Vital Signs Date Time Vital Sign Value Performing Clinician Facility 10-24-2024 20:24-0400 SaO2% (BldA) [Mass fraction] 99 % [facility] Comment on above: Order Comment: Specimen Type: ARTERIAL B LOOD SPECIMENOrdering Facility: [facility] Address: [address] [place], [place] [address] Performed By: #### A LLBG ####[facility] [id number] [address] [address] [facility] 10-24-2024 10:16-0400 SaO2% (BldA) [Mass fraction] 98 % [facility] Comment on above: Order Comment: Specimen Type: ARTERIAL B LOOD SPECIMENOrdering Facility: [facility] Address: [address] [place], [place] [address] Performed By: #### A LLBG ####[facility]IA [id number] [place] [id number] [facility] 10-24-2024 08:17-0400 SaO2% (BldA) [Mass fraction] 97 % [facility] Comment on above: Order Comment: Specimen Type: ARTERIAL B LOOD SPECIMENOrdering Facility: [facility] Address: [address] [place], [place] [address] Performed By: #### A LLBG ####[facility] [id number] [address] [address] [facility] 10-23-2024 16:00-0400 SaO2% (BldA) [Mass fraction] 99 % [facility] Comment on above: Order Comment: Specimen Type: ARTERIAL B LOOD SPECIMENOrdering Facility: [facility] Address: [address] [place], [place] [address] Performed By: #### A LLBG ####[facility] [id number] [address] [address] [place] 10-23-2024 14:01-0400 SaO2% (BldA) [Mass fraction] 97 % [facility] Comment on above: Order Comment: Specimen Type: ARTERIAL B LOOD SPECIMENOrdering Facility: [facility] Address: [address] [place], [place] [address] Performed By: #### A LLMG ####[facility] [id number] [address] [address] [place] 10-23-2024 11:24-0400 SaO2% (BldA) [Mass fraction] 95 % [facility] Comment on above: Order Comment: Specimen Type: ARTERIAL B LOOD SPECIMENOrdering Facility: [facility] Address: [address] [place], [place] [address] Performed By: #### A LLBG ####[facility] [id number] [place] [id number] [place] 10-23-2024 07:54-0400 SaO2% (BldA) [Mass fraction] 99 % [facility] Comment on above: Order Comment: Specimen Type: ARTERIAL B LOOD SPECIMENOrdering Facility: [facility] Address: [address] [place], [place] [address] Performed By: #### A LLBG ####[facility]IA [id number] [address] [address] [place] 10-23-2024 00:32-0400 SaO2% (BldA) [Mass fraction] 98 % [facility] Comment on above: Order Comment: Specimen Type: ARTERIAL B LOOD SPECIMENOrdering Facility: [facility] Address: [address] [place], [place] [address] Performed By: #### A LLBG ####[facility]IA [id number] [address] [address] [place] 10-22-2024 08:41-0400 SaO2% (BldA) [Mass fraction] 97 % [facility] Comment on above: Order Comment: Specimen Type: ARTERIAL B LOOD SPECIMENOrdering Facility: [facility] Address: [address] [place], [place] [address] Performed By: #### A LLBG ####[facility]IA [id number] [place] [id number] [place] 10-22-2024 00:45-0400 SaO2% (BldA) [Mass fraction] 95 % [facility] Comment on above: Order Comment: Specimen Type: ARTERIAL B LOOD SPECIMENOrdering Facility: [facility] Address: [address] [place], [place] [address] Performed By: #### A LLBG ####[facility] [id number] [place] [id number] [place] 10-21-2024 11:32-0400 SaO2% (BldA) [Mass fraction] 94 % [facility] Comment on above: Order Comment: Specimen Type: ARTERIAL B LOOD SPECIMENOrdering Facility: [facility] Address: [address] [place], [place] [address] Performed By: #### A LLBG ####[facility] [id number] [place] [id number] [place] 10-21-2024 07:48-0400 SaO2% (BldA) [Mass fraction] 97 % [facility] Comment on above: Order Comment: Specimen Type: ARTERIAL B LOOD SPECIMENOrdering Facility: [facility] Address: [address] [place], [place] [address] Performed By: #### A LLBG ####[facility]IA [id number] [address] [address] [place] 10-21-2024 05:48-0400 SaO2% (BldA) [Mass fraction] 98 % [facility] Comment on above: Order Comment: Specimen Type: ARTERIAL B LOOD SPECIMENOrdering Facility: [facility] Address: [address] [place], [place] [address] Performed By: #### A LLBG ####[facility] LABIA [id number] [place] [id number] [facility] 10-21-2024 00:14-0400 SaO2% (BldA) [Mass fraction] 100 % [facility] Comment on above: Order Comment: Specimen Type: ARTERIAL B LOOD SPECIMENOrdering Facility: [facility] Address: [address] [place], [place] [address] Performed By: #### A LLBG ####[facility] [id number] [place] [id number] [facility] 10-20-2024 19:42-0400 SaO2% (BldA) [Mass fraction] 98 % [facility] Comment on above: Order Comment: Specimen Type: ARTERIAL B LOOD SPECIMENOrdering Facility: [facility] Address: [address] [place], [place] [address] Performed By: #### A LLBG ####[facility] [id number] [place] [id number] [facility] 10-20-2024 16:11-0400 SaO2% (BldA) [Mass fraction] 99 % [facility] Comment on above: Order Comment: Specimen Type: ARTERIAL B LOOD SPECIMENOrdering Facility: [facility] Address: [address] [place], [place] [address] Performed By: #### A LLBG ####[facility] [id number] [address] [address] [facility] [place] 10-20-2024 11:08-0400 SaO2% (BldA) [Mass fraction] 98 % [facility] Comment on above: Order Comment: Specimen Type: ARTERIAL B LOOD SPECIMENOrdering Facility: [facility] Address: [address] [place], [place] [address] Performed By: #### A LLBG ####[facility] LABIA [id number] [address] [address] [facility] 10-20-2024 08:11-0400 SaO2% (BldA) [Mass fraction] 98 % [facility] Comment on above: Order Comment: Specimen Type: ARTERIAL B LOOD SPECIMENOrdering Facility: [facility] Address: [address] [place], [place] [address] Performed By: #### A LLBG ####[facility]IA [id number] [place] [id number] [facility] 10-20-2024 00:03-0400 SaO2% (BldA) [Mass fraction] 99 % [facility] Comment on above: Order Comment: Specimen Type: ARTERIAL B LOOD SPECIMENOrdering Facility: [facility] Address: [address] [place] [address] Performed By: #### A LLBG ####[facility] [id number] [place] [id number] [facility] 10-19-2024 19:57-0400 SaO2% (BldA) [Mass fraction] 99 % [facility] Comment on above: Order Comment: Specimen Type: ARTERIAL B LOOD SPECIMENOrdering Facility: [facility] Address: [address] [place], [place] [address] Performed By: #### A LLBG ####[facility]IA [id number] [address] [address] [facility] 10-19-2024 07:48-0400 SaO2% (BldA) [Mass fraction] 96 % [facility] Comment on above: Order Comment: Specimen Type: ARTERIAL B LOOD SPECIMENOrdering Facility: [facility] Address: [address] [place], [place] [address] Performed By: #### A LLBG ####[facility] LABCLIA [id number] [address] [address] [place] 10-12-2024 15:58-0400 Heart rate 109 /min Dr. Rolan Romero DO Work Phone: [facility] 10-12-2024 15:58-0400 Inhaled oxygen flow rate 3 L/min Dr. Rolan Romero DO Work Phone: [facility] 10-12-2024 15:58-0400 Respiratory rate 26 /min Dr. Rolan Romero DO Work Phone: 9(698)558-710921 [place] [address] 10-12-2024 15:58-0400 SaO2% (BldA) [Mass fraction] 97 % Dr. Rolan Romero DO Work Phone: 4(378)646-492921 [place] [address] 10-12-2024 15:51-0400 Body temperature 98.9 [degF] Dr. Rolan Romero DO Work Phone: 4(933)162-024921 [place] [address] 10-12-2024 15:51-0400 Diastolic blood pressure 94 mm[Hg] Dr. Rolan Romero DO Work Phone: [facility] 10-12-2024 15:51-0400 Systolic blood pressure 124 mm[Hg] Dr. Rolan Romero DO Work Phone: [facility] 10-12-2024 09:49-0400 Body height 177.[address] Rolan Romero DO Work Phone: [facility] 10-12-2024 09:49-0400 Body mass index (BMI) [Ratio] 21.8 kg/m2 Dr. Rolan Romero DO Work Phone: [facility] 10-12-2024 09:49-0400 Body weight [address] Rolan Romero DO Work Phone: 6(989)046-887421 [place] [address] 10-10-2024 11:34-0400 Body mass index (BMI) [Ratio] 20.7 kg/m2 Dr. Rolan Romero DO Work Phone: 0(423)500-491020 [place] [address] 10-10-2024 11:34-0400 Body weight 65.[address] Rolan Romero DO Work Phone: 8(521)834-541420 [place] [address] 10-10-2024 11:34-0400 Diastolic blood pressure 87 mm[Hg] Dr. Rolan Romero DO Work Phone: 2(067)417-921320 [place] [address] 10-10-2024 11:34-0400 Heart rate 104 /min Dr. Rolan Romero DO Work Phone: 8(695)531-583120 [place] [address] 10-10-2024 11:34-0400 Respiratory rate 18 /min Dr. Rolan Romero DO Work Phone: 4(309)141-546520 [place] [address] 10-10-2024 11:34-0400 SaO2% (BldA) [Mass fraction] 94 % Dr. Rolan Romero DO Work Phone: 6(658)452-056820 [place] [address] 10-10-2024 11:34-0400 Systolic blood pressure 155 mm[Hg] Dr. Rolan Romero DO Work Phone: 6(411)975-041420 [place] [address] 10-06-2024 15:09-0400 Body temperature 96.7 [degF] Dr. Rolan Romero DO Work Phone: 0(690)720-131121 [place] [address] 10-06-2024 15:09-0400 Diastolic blood pressure 111 mm[Hg] Dr. Rolan Romero DO Work Phone: 1(781)026-348621 [place] [address] 10-06-2024 15:09-0400 Heart rate 103 /min Dr. Rolan Romero DO Work Phone: 3(407)104-612021 [place] [address] 10-06-2024 15:09-0400 Respiratory rate 20 /min Dr. Rolan Romero DO Work Phone: 2(068)905-749720 [place] [address] 10-06-2024 15:09-0400 SaO2% (BldA) [Mass fraction] 97 % Dr. Rolan Romero DO Work Phone: 4(882)359-643220 [place] [address] 10-06-2024 15:09-0400 Systolic blood pressure 149 mm[Hg] Dr. Rolan Romero DO Work Phone: 3(056)075-388720 [place] [address] 10-06-2024 14:29-0400 Inhaled oxygen concentration 2 % Dr. Rolan Romero DO Work Phone: 2(199)791-128720 [place] [address] 10-06-2024 12:43-0400 Inhaled oxygen flow rate 2 L/min Dr. Rolan Romero DO Work Phone: 1(149)006-933320 [place] [address] 10-06-2024 11:37-0400 Body height 177.[address] Rolan Romero DO Work Phone: 6(452)787-152320 [place] [address] 10-06-2024 11:37-0400 Body mass index (BMI) [Ratio] 22.6 kg/m2 Dr. Rolan Romero DO Work Phone: 6(498)684-075420 [place] [address] 10-06-2024 11:37-0400 Body weight 71.[address] Rolan Romero DO Work Phone: 8(555)796-280420 [place] [address] 09-28-2024 13:41-0400 Body height 177.[address] Rolan Romero DO Work Phone: 0(294)841-746020 [place] [address] 09-28-2024 13:41-0400 Body mass index (BMI) [Ratio] 20.2 kg/m2 Dr. Rolan Romero DO Work Phone: 3(015)231-466020 [place] [address] 09-28-2024 13:41-0400 Body weight 63.[address] Rolan Romero DO Work Phone: 7(677)973-831720 [place] [address] 09-28-2024 13:41-0400 Diastolic blood pressure 98 mm[Hg] Dr. Rolan Romero DO Work Phone: 5(236)286-325521 [place] [address] 09-28-2024 13:41-0400 Heart rate 106 /min Dr. Rolan Romero DO Work Phone: 5(204)147-875421 [place] [address] 09-28-2024 13:41-0400 Respiratory rate 18 /min Dr. Rolan Romero DO Work Phone: 6(751)898-800321 [place] [address] 09-28-2024 13:41-0400 SaO2% (BldA) [Mass fraction] 94 % Dr. Rolan Romero DO Work Phone: 7(316)675-897821 [place] [address] 09-28-2024 13:41-0400 Systolic blood pressure 137 mm[Hg] Dr. Rolan Romero DO Work Phone: 6(434)015-191721 [place] [address] 09-04-2024 15:54-0400 Heart rate 86 /min Dr. Rolan Romero DO Work Phone: 4(994)935-078721 [place] [address] 09-04-2024 15:54-0400 Respiratory rate 17 /min Dr. Rolan Romero DO Work Phone: 2(874)330-128821 [place] [address] 09-04-2024 15:40-0400 Body temperature 97.3 [degF] Dr. Rolan Romero DO Work Phone: 5(680)406-738921 [place] [address] 09-04-2024 15:40-0400 Diastolic blood pressure 88 mm[Hg] Dr. Rolan Romero DO Work Phone: 0(675)638-823921 [place] [address] 09-04-2024 15:40-0400 Inhaled oxygen flow rate 2 L/min Dr. Rolan Romero DO Work Phone: 7(620)991-998821 [place] [address] 09-04-2024 15:40-0400 SaO2% (BldA) [Mass fraction] 95 % Dr. Rolan Romero DO Work Phone: 6(414)506-631721 [place] [address] 09-04-2024 15:40-0400 Systolic blood pressure 118 mm[Hg] Dr. Rolan Romero DO Work Phone: 6(775)037-811521 [place] [address] 09-04-2024 11:18-0400 Body weight 69.[address] Rolan Romero DO Work Phone: 1(371)913-928220 [place] [address] 09-04-2024 03:53-0400 Body mass index (BMI) [Ratio] 21.4 kg/m2 Dr. Rolan Romero DO Work Phone: 9(448)163-861720 [place] [address] 08-30-2024 10:09-0400 Inhaled oxygen concentration 31 % Dr. Rolan Romero DO Work Phone: 2(522)767-613420 [place] [address] 08-29-2024 00:00-0400 Body temperature 97.8 [degF] Dr. Rolan Romero DO Work Phone: 1(870)329-233120 [place] [address] 08-29-2024 00:00-0400 Diastolic blood pressure 99 mm[Hg] Dr. Rolan Romero DO Work Phone: 9(777)085-413921 [place] [address] 08-29-2024 00:00-0400 Heart rate 108 /min Dr. Rolan Romero DO Work Phone: 2(636)596-757921 [place] [address] 08-29-2024 00:00-0400 Respiratory rate 18 /min Dr. Rolan Romero DO Work Phone: 2(075)120-483721 [place] [address] 08-29-2024 00:00-0400 SaO2% (BldA) [Mass fraction] 96 % Dr. Rolan Romero DO Work Phone: 4(039)613-404821 [place] [address] 08-29-2024 00:00-0400 Systolic blood pressure 130 mm[Hg] Dr. Rolan Romero DO Work Phone: 3(086)156-315421 [place] [address] 08-28-2024 21:27-0400 Inhaled oxygen concentration 40 % Dr. Rolan Romero DO Work Phone: [facility] 08-28-2024 21:27-0400 Inhaled oxygen flow rate 8 L/min Dr. Rolan Romero DO Work Phone: [facility] 08-28-2024 17:46-0400 Body height 180.[address] Rolan Romero DO Work Phone: [facility] 08-28-2024 17:46-0400 Body mass index (BMI) [Ratio] 20.4 kg/m2 Dr. Rolan Romero DO Work Phone: [facility] 08-28-2024 17:46-0400 Body weight 66.[address] Rolan Romero DO Work Phone: [facility] 08-03-2024 08:48-0400 Heart rate 86 /min No Primary Care Physician [facility] 08-03-2024 08:46-0400 Body temperature 97.7 [degF] No Primary Care Physician [facility] 08-03-2024 08:46-0400 Diastolic blood pressure 98 mm[Hg] No Primary Care Physician [facility] 08-03-2024 08:46-0400 Respiratory rate 16 /min No Primary Care Physician [facility] 08-03-2024 08:46-0400 SaO2% (BldA) [Mass fraction] 97 % No Primary Care Physician [facility] 08-03-2024 08:46-0400 Systolic blood pressure 127 mm[Hg] No Primary Care Physician [facility] 08-03-2024 05:38-0400 Body mass index (BMI) [Ratio] 20.6 kg/m2 No Primary Care Physician [facility] 08-03-2024 05:38-0400 Body weight 67 kg No Primary Care Physician [facility] 08-02-2024 11:29-0400 Body height 180.34 cm No Primary Care Physician [facility] 08-01-2024 21:00-0400 Body temperature 97.9 [degF] No Primary Care Physician [facility] 08-01-2024 21:00-0400 Diastolic blood pressure 76 mm[Hg] No Primary Care Physician [facility] 08-01-2024 21:00-0400 Heart rate 102 /min No Primary Care Physician [facility] 08-01-2024 21:00-0400 Respiratory rate 18 /min No Primary Care Physician [facility] 08-01-2024 21:00-0400 SaO2% (BldA) [Mass fraction] 99 % No Primary Care Physician [facility] 08-01-2024 21:00-0400 Systolic blood pressure 109 mm[Hg] No Primary Care Physician [facility] 08-01-2024 20:30-0400 Inhaled oxygen flow rate 2 L/min No Primary Care Physician [facility] 08-01-2024 19:38-0400 Body mass index (BMI) [Ratio] 21.7 kg/m2 No Primary Care Physician [facility] 08-01-2024 19:38-0400 Body weight 70.7 kg No Primary Care Physician [facility] 08-01-2024 12:33-0400 Body height 180.34 cm No Primary Care Physician [facility] 07-14-2024 09:45-0400 Heart rate 79 /min No Primary Care Physician [facility] 07-14-2024 07:55-0400 Body temperature 98.7 [degF] No Primary Care Physician [facility] 07-14-2024 07:55-0400 Diastolic blood pressure 84 mm[Hg] No Primary Care Physician [facility] 07-14-2024 07:55-0400 Respiratory rate 16 /min No Primary Care Physician [facility] 07-14-2024 07:55-0400 SaO2% (BldA) [Mass fraction] 95 % No Primary Care Physician [facility] 07-14-2024 07:55-0400 Systolic blood pressure 122 mm[Hg] No Primary Care Physician [facility] 07-14-2024 03:30-0400 Body mass index (BMI) [Ratio] 20.1 kg/m2 No Primary Care Physician [facility] 07-14-2024 03:30-0400 Body weight 65.6 kg No Primary Care Physician [facility] 07-12-2024 14:49-0400 Body height 180.34 cm No Primary Care Physician [facility] 07-11-2024 15:00-0400 Diastolic blood pressure 98 mm[Hg] No Primary Care Physician [facility] 07-11-2024 15:00-0400 Heart rate 80 /min No Primary Care Physician [facility] 07-11-2024 15:00-0400 Respiratory rate 18 /min No Primary Care Physician [facility] 07-11-2024 15:00-0400 SaO2% (BldA) [Mass fraction] 98 % No Primary Care Physician [facility] 07-11-2024 15:00-0400 Systolic blood pressure 148 mm[Hg] No Primary Care Physician [facility] 07-11-2024 13:51-0400 Body temperature 98.6 [degF] No Primary Care Physician [facility] 07-11-2024 11:28-0400 Body height 180.34 cm No Primary Care Physician [facility] 07-11-2024 11:28-0400 Body mass index (BMI) [Ratio] 20.2 kg/m2 No Primary Care Physician [facility] 07-11-2024 11:28-0400 Body weight 65.81 kg No Primary Care Physician [facility] 07-06-2024 11:41-0400 Body temperature 97.6 [degF] No Primary Care Physician [facility] 07-06-2024 11:41-0400 Diastolic blood pressure 81 mm[Hg] No Primary Care Physician [facility] 07-06-2024 11:41-0400 Heart rate 60 /min No Primary Care Physician [facility] 07-06-2024 11:41-0400 Respiratory rate 16 /min No Primary Care Physician [facility] 07-06-2024 11:41-0400 SaO2% (BldA) [Mass fraction] 93 % No Primary Care Physician [facility] 07-06-2024 11:41-0400 Systolic blood pressure 142 mm[Hg] No Primary Care Physician [facility] 07-06-2024 04:52-0400 Body mass index (BMI) [Ratio] 20.4 kg/m2 No Primary Care Physician [facility] 07-06-2024 04:52-0400 Body weight 66.4 kg No Primary Care Physician [facility] 07-04-2024 14:00-0400 Inhaled oxygen flow rate 2 L/min No Primary Care Physician [facility] 07-04-2024 11:32-0400 Body height 180.34 cm No Primary Care Physician [facility] 06-28-2024 14:10-0400 Body temperature 98 [degF] No Primary Care Physician [facility] 06-28-2024 14:10-0400 Diastolic blood pressure 75 mm[Hg] No Primary Care Physician [facility] 06-28-2024 14:10-0400 Heart rate 82 /min No Primary Care Physician [facility] 06-28-2024 14:10-0400 Respiratory rate 18 /min No Primary Care Physician [facility] 06-28-2024 14:10-0400 SaO2% (BldA) [Mass fraction] 97 % No Primary Care Physician [facility] 06-28-2024 14:10-0400 Systolic blood pressure 102 mm[Hg] No Primary Care Physician [facility] 06-28-2024 11:20-0400 Body height 180.34 cm No Primary Care Physician [facility] 06-28-2024 11:20-0400 Body weight 74.9 kg No Primary Care Physician [facility] 06-28-2024 09:00-0400 Inhaled oxygen flow rate 2 L/min No Primary Care Physician [facility] 06-28-2024 03:35-0400 Body mass index (BMI) [Ratio] 23.1 kg/m2 No Primary Care Physician [facility] 06-25-2024 22:00-0400 Diastolic blood pressure 86 mm[Hg] No Primary Care Physician [facility] 06-25-2024 22:00-0400 Heart rate 118 /min No Primary Care Physician [facility] 06-25-2024 22:00-0400 Respiratory rate 20 /min No Primary Care Physician [facility] 06-25-2024 22:00-0400 SaO2% (BldA) [Mass fraction] 94 % No Primary Care Physician [facility] 06-25-2024 22:00-0400 Systolic blood pressure 138 mm[Hg] No Primary Care Physician [facility] 06-25-2024 21:38-0400 Body temperature 98.5 [degF] No Primary Care Physician [facility] 06-25-2024 16:17-0400 Body height 180.34 cm No Primary Care Physician [facility] 06-25-2024 16:17-0400 Body mass index (BMI) [Ratio] 26.6 kg/m2 No Primary Care Physician [facility] 06-25-2024 16:17-0400 Body weight 86.5 kg No Primary Care Physician [facility] 04-12-2024 09:41-0500 Diastolic blood pressure 110 mm[Hg] Vandana Edwards Work Phone: [facility] 04-12-2024 09:41-0500 Systolic blood pressure 172 mm[Hg] Vandana Edwards Work Phone: [facility] 04-12-2024 09:14-0500 Body mass index (BMI) [Ratio] 20.08 kg/m2 Vandana Edwards Work Phone: [facility] 04-12-2024 09:14-0500 Body temperature 97.11 [degF] Vandana Edwards Work Phone: [facility] 04-12-2024 09:14-0500 Body weight 65.32 kg Vandana Edwards Work Phone: [facility] 04-12-2024 09:14-0500 Heart rate 60 /min Vandana Edwards Work Phone: [facility] 04-12-2024 09:14-0500 SaO2% (BldA) [Mass fraction] 98 % Vandana Edwards Work Phone: [facility] 04-05-2024 13:20-0500 Diastolic blood pressure 75 mm[Hg] Phoebe Vazquez MD Work Phone: [facility] 04-05-2024 13:20-0500 Heart rate 65 /min Phoebe Vazquez MD Work Phone: [facility] 04-05-2024 13:20-0500 Respiratory rate 16 /min Phoebe Vazquez MD Work Phone: [facility] 04-05-2024 13:20-0500 SaO2% (BldA) [Mass fraction] 97 % Phoebe Vazquez MD Work Phone: [facility] 04-05-2024 13:20-0500 Systolic blood pressure 118 mm[Hg] Phoebe Vazquez MD Work Phone: [facility] 04-05-2024 13:00-0500 Body temperature 97 [degF] Phoebe Vazquez MD Work Phone: [facility] 04-05-2024 11:43-0500 Body height 180.3 cm Phoebe Vazquez MD Work Phone: [facility] 04-05-2024 11:43-0500 Body mass index (BMI) [Ratio] 20.22 kg/m2 Phoebe Vazquez MD Work Phone: [facility] 04-05-2024 11:43-0500 Body weight 65.77 kg Phoebe Vazquez MD Work Phone: [facility] 12-27-2023 14:12-0500 Body height 180.3 cm Marianna Queden 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 Phone: [facility] 12-27-2023 14:12-0500 Body mass index (BMI) [Ratio] 18.97 kg/m2 Marianna Queden 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 Phone: [facility] 12-27-2023 14:12-0500 Body temperature 97.81 [degF] Marianna Queden 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 Phone: [facility] 12-27-2023 14:12-0500 Body weight 61.69 kg Marianna Queden 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 Phone: [facility] 12-27-2023 14:12-0500 Diastolic blood pressure 70 mm[Hg] Marianna Queden 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 Phone: [facility] 12-27-2023 14:12-0500 Heart rate 75 /min Marianna Queden 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 Phone: [facility] 12-27-2023 14:12-0500 Respiratory rate 16 /min Marianna Queden 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 Phone: [facility] 12-27-2023 14:12-0500 SaO2% (BldA) [Mass fraction] 100 % Marianna Gomezden 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 Phone: [facility] 12-27-2023 14:12-0500 Systolic blood pressure 126 mm[Hg] Marianna Queden 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 Phone: [facility] 12-24-2023 10:38-0500 Body height 180.3 cm Susana Hritz 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 Phone: [facility] 12-24-2023 10:38-0500 Body mass index (BMI) [Ratio] 18.97 kg/m2 Susana Hritz 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 Phone: [facility] 12-24-2023 10:38-0500 Body weight 61.69 kg Susana Hritz 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 Phone: [facility] 12-24-2023 10:38-0500 Diastolic blood pressure 84 mm[Hg] Susana Hritz 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 Phone: [facility] 12-24-2023 10:38-0500 Heart rate 70 /min Susana Hritz 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 Phone: [facility] 12-24-2023 10:38-0500 Systolic blood pressure 132 mm[Hg] Susnaa Hritz 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 Phone: [facility] 11-15-2023 10:50-0400 Body height 177.8 cm Vandana Edwards Work Phone: [facility] 11-15-2023 10:50-0400 Body mass index (BMI) [Ratio] 18.94 kg/m2 Vandana Edwards Work Phone: [facility] 11-15-2023 10:50-0400 Body temperature 97.7 [degF] Vandana Edwards Work Phone: [facility] 11-15-2023 10:50-0400 Body weight 59.88 kg Vandana Edwards Work Phone: [facility] 11-15-2023 10:50-0400 Diastolic blood pressure 105 mm[Hg] Vandana Edwards Work Phone: [facility] 11-15-2023 10:50-0400 Heart rate 106 /min Vandana Edwards Work Phone: [facility] 11-15-2023 10:50-0400 SaO2% (BldA) [Mass fraction] 98 % Vandana Edwards Work Phone: [facility] 11-15-2023 10:50-0400 Systolic blood pressure 141 mm[Hg] Vandana Edwards Work Phone: [facility] 10-30-2023 17:46-0400 Blood Pressure Location ANN-MARIE DILLON DO [facility] 10-30-2023 17:46-0400 Blood Pressure Method ANN-MARIE DILLON DO [facility] 10-30-2023 17:46-0400 Diastolic Blood Pressure Non-Invasive 94 mm[Hg] ANN-MARIE DILLON DO [facility] 10-30-2023 17:46-0400 Heart rate 64 /min ANN-MARIE DILLON DO [facility] 10-30-2023 17:46-0400 Reason For Taking VItal Signs ANN-MARIE DILLON DO [facility] 10-30-2023 17:46-0400 Respiratory rate 18 /min ANN-MARIE DILLON DO [facility] 10-30-2023 17:46-0400 Systolic Blood Pressure Non-Invasive 167 mm[Hg] ANN-MARIE WILMA DO [facility] 10-30-2023 17:24-0400 Blood Pressure Location ANN-MARIE WILMA DO [facility] 10-30-2023 17:24-0400 Blood Pressure Method ANN-MARIE DILLON DO [facility] 10-30-2023 17:24-0400 Diastolic Blood Pressure Non-Invasive 100 mm[Hg] ANN-MARIE DILLON DO [facility] 10-30-2023 17:24-0400 Heart rate 85 /min ANN-MARIE DILLON DO [facility] 10-30-2023 17:24-0400 Reason For Taking VItal Signs ANN-MARIE DILLON DO [facility] 10-30-2023 17:24-0400 Respiratory rate 14 /min ANN-MARIE DILLON DO [facility] 10-30-2023 17:24-0400 Systolic Blood Pressure Non-Invasive 200 mm[Hg] ANN-MARIE DILLON DO [facility] 10-30-2023 15:15-0400 Blood Pressure Location ANN-MARIE DILLON DO [facility] 10-30-2023 15:15-0400 Blood Pressure Method ANN-MARIE DILLON DO [facility] 10-30-2023 15:15-0400 Body temperature 98.24 [degF] ANN-MARIE DILLON DO [facility] 10-30-2023 15:15-0400 Body weight 63.6 kg ANN-MARIE DILLON DO [facility] 10-30-2023 15:15-0400 Diastolic Blood Pressure Non-Invasive 92 mm[Hg] ANN-MARIE DILLON DO [facility] 10-30-2023 15:15-0400 Heart rate 73 /min ANN-MARIE DILLON DO [facility] 10-30-2023 15:15-0400 Respiratory rate 14 /min ANN-MARIE DILLON DO [facility] 10-30-2023 15:15-0400 Systolic Blood Pressure Non-Invasive 156 mm[Hg] ANN-MARIE DILLON DO [facility] 10-14-2023 11:05-0400 Body height 180.3 cm Marianna Queden 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 Phone: [facility] 10-14-2023 11:05-0400 Body mass index (BMI) [Ratio] 18.83 kg/m2 Marianna Queden 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 Phone: [facility] 10-14-2023 11:05-0400 Body temperature 97.59 [degF] Marianna Queden 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 Phone: [facility] 10-14-2023 11:05-0400 Body weight 61.24 kg Marianna Queden 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 Phone: [facility] 10-14-2023 11:05-0400 Diastolic blood pressure 70 mm[Hg] Marianna Queden 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 Phone: [facility] 10-14-2023 11:05-0400 Heart rate 60 /min Marianna Queden 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 Phone: [facility] 10-14-2023 11:05-0400 Respiratory rate 18 /min Marianna Queden 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 Phone: [facility] 10-14-2023 11:05-0400 SaO2% (BldA) [Mass fraction] 100 % Marianna Queden 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 Phone: [facility] 10-14-2023 11:05-0400 Systolic blood pressure 122 mm[Hg] Marianna Queden 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 Phone: [facility] 08-09-2023 13:11-0400 Body height 180.3 cm Marianna Jasonden 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 Phone: [facility] 08-09-2023 13:11-0400 Body mass index (BMI) [Ratio] 19.39 kg/m2 Marianna Queden 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 Phone: [facility] 08-09-2023 13:11-0400 Body temperature 99 [degF] Marianna Queden 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 Phone: [facility] 08-09-2023 13:11-0400 Body weight 63.05 kg Marianna Queden 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 Phone: [facility] 08-09-2023 13:11-0400 Diastolic blood pressure 76 mm[Hg] Marianna Queden 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 Phone: [facility] 08-09-2023 13:11-0400 Heart rate 98 /min Marianna Queden 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 Phone: [facility] 08-09-2023 13:11-0400 SaO2% (BldA) [Mass fraction] 99 % Marianna Queden 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 Phone: [facility] 08-09-2023 13:11-0400 Systolic blood pressure 122 mm[Hg] Marianna Jasonden 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 Phone: [facility] 05-20-2023 13:15-0400 Body temperature 97.7 [degF] [employer]CTOR [employer] OPERATOR-C Andreas Pathak TRACTOR CRANE OPERATOR Work Phone: [facility] 05-20-2023 13:15-0400 Diastolic blood pressure 73 mm[Hg] TRACTOR CR[employer] OPERATOR-C Andreas Pathak TRACTOR CRANE OPERATOR Work Phone: [facility] 05-20-2023 13:15-0400 Heart rate 74 /min [employer] OPERATOR-C Andraes Pathak TRACTOR CRANE OPERATOR Work Phone: [facility] 05-20-2023 13:15-0400 Respiratory rate 16 /min [employer] OPERATOR-C Andreas Pathak TRACTOR CRANE OPERATOR Work Phone: [facility] 05-20-2023 13:15-0400 SaO2% (BldA) [Mass fraction] 96 % [employer]CTOR CR[employer] OPERATOR-C Andreas Pathak TRACTOR CRANE OPERATOR Work Phone: [facility] 05-20-2023 13:15-0400 Systolic blood pressure 107 mm[Hg] TRACTOR CRANE OPERATOR-C Andreas Pathak TRACTOR CRANE OPERATOR Work Phone: [facility] 05-20-2023 06:00-0400 Body mass index (BMI) [Ratio] 25.8 kg/m2 [employer] CR[employer] OPERATOR-C Andreas Pathak TRACTOR CRANE OPERATOR Work Phone: [facility] 05-20-2023 06:00-0400 Body weight 84.1 kg [employer]CTOR CRANE OPERATOR-C Andreas Pathak TRACTOR CRANE OPERATOR Work Phone: [facility] 05-18-2023 11:01-0400 Body height 180.34 cm TRACTOR CRANE OPERATOR-C Andreas Pathak TRACTOR CRANE OPERATOR Work Phone: [facility] 05-18-2023 07:20-0400 Inhaled oxygen flow rate 2 L/min [employer] CR[employer] OPERATOR-C Andreas Pathak TRACTOR CRANE OPERATOR Work Phone: [facility] 05-15-2023 11:10-0400 Inhaled oxygen concentration 25 % TRACTOR CRANE OPERATOR-C Andreas Pathak TRACTOR CRANE OPERATOR Work Phone: [facility] 05-09-2023 21:45-0400 Diastolic blood pressure 66 mm[Hg] TRACTOR CRANE OPERATOR-C Andreas Pathak TRACTOR CRANE OPERATOR Work Phone: [facility] 05-09-2023 21:45-0400 Heart rate 116 /min TRACTOR CRANE OPERATOR-C Andreas Pathak TRACTOR CRANE OPERATOR Work Phone: [facility] 05-09-2023 21:45-0400 Respiratory rate 20 /min TRACTOR CRANE OPERATOR-C Andreas Pathak TRACTOR CRANE OPERATOR Work Phone: [facility] 05-09-2023 21:45-0400 SaO2% (BldA) [Mass fraction] 94 % TRACTOR CRANE OPERATOR-C Andreas Pathak TRACTOR CRANE OPERATOR Work Phone: [facility] 05-09-2023 21:45-0400 Systolic blood pressure 84 mm[Hg] TRACTOR CRANE OPERATOR-C Andreas Pathak TRACTOR CRANE OPERATOR Work Phone: [facility] 05-09-2023 21:44-0400 Body temperature 97.7 [degF] TRACTOR CRANE OPERATOR-C Andreas Pathak TRACTOR CRANE OPERATOR Work Phone: [facility] 05-09-2023 21:44-0400 Inhaled oxygen flow rate 2 L/min TRACTOR CRANE OPERATOR-C Andreas Pathak TRACTOR CRANE OPERATOR Work Phone: [facility] 05-09-2023 13:31-0400 Body height 180.34 cm TRACTOR CRANE OPERATOR-C Andreas Pathak TRACTOR CRANE OPERATOR Work Phone: [facility] 05-09-2023 13:31-0400 Body mass index (BMI) [Ratio] 23.8 kg/m2 [employer]CTOR CR[employer] OPERATOR-C Andreas Pathak TRACTOR CRANE OPERATOR Work Phone: [facility] 05-09-2023 13:31-0400 Body weight 77.4 kg TRACTOR CRANE OPERATOR-C Andreas Pathak TRACTOR CRANE OPERATOR Work Phone: [facility] 04-27-2023 08:51-0400 Body temperature 98.8 [degF] TRACTOR CRANE OPERATOR-C Andreas Pathak TRACTOR CRANE OPERATOR Work Phone: [facility] 04-27-2023 08:51-0400 Diastolic blood pressure 78 mm[Hg] TRACTOR CRANE OPERATOR-C Andreas Pathak TRACTOR CRANE OPERATOR Work Phone: [facility] 04-27-2023 08:51-0400 Heart rate 98 /min TRACTOR CRANE OPERATOR-C Andreas Pathak TRACTOR CRANE OPERATOR Work Phone: [facility] 04-27-2023 08:51-0400 Respiratory rate 16 /min TRACTOR CRANE OPERATOR-C Andreas Pathak TRACTOR CRANE OPERATOR Work Phone: [facility] 04-27-2023 08:51-0400 SaO2% (BldA) [Mass fraction] 95 % [employer]CTOR CR[employer] OPERATOR-C Andreas Pathak TRACTOR CRANE OPERATOR Work Phone: [facility] 04-27-2023 08:51-0400 Systolic blood pressure 110 mm[Hg] TRACTOR CRANE OPERATOR-C Andreas Pathak TRACTOR CRANE OPERATOR Work Phone: [facility] 04-26-2023 14:44-0400 Body height 180.01 cm TRACTOR CRANE OPERATOR-C Andreas Pathak TRACTOR CRANE OPERATOR Work Phone: [facility] [facility] 04-26-2023 14:44-0400 Body weight 63.9 kg TRACTOR CRANE OPERATOR-C Andreas Pathak TRACTOR CRANE OPERATOR Work Phone: [facility] 04-22-2023 22:00-0400 Inhaled oxygen flow rate 2 L/min TRACTOR CRANE OPERATOR-C Andreas Pathak TRACTOR CRANE OPERATOR Work Phone: [facility] 04-20-2023 17:00-0400 Body mass index (BMI) [Ratio] 19.7 kg/m2 TRACTOR CRANE OPERATOR-C Andreas Pathak TRACTOR CRANE OPERATOR Work Phone: [facility] 04-20-2023 16:05-0400 Body temperature 98.2 [degF] TRACTOR CRANE OPERATOR-C Andreas Pathak TRACTOR CRANE OPERATOR Work Phone: [facility] 04-20-2023 16:05-0400 Diastolic blood pressure 80 mm[Hg] TRACTOR CRANE OPERATOR-C Andreas Pathak TRACTOR CRANE OPERATOR Work Phone: [facility] 04-20-2023 16:05-0400 Heart rate 117 /min TRACTOR CRANE OPERATOR-C Andreas Pathak TRACTOR CRANE OPERATOR Work Phone: [facility] 04-20-2023 16:05-0400 Respiratory rate 16 /min TRACTOR CRANE OPERATOR-C Andreas Pathak TRACTOR CRANE OPERATOR Work Phone: [facility] 04-20-2023 16:05-0400 SaO2% (BldA) [Mass fraction] 100 % TRACTOR CRANE OPERATOR-C Andreas Pathak TRACTOR CRANE OPERATOR Work Phone: [facility] 04-20-2023 16:05-0400 Systolic blood pressure 143 mm[Hg] TRACTOR CRANE OPERATOR-C Anrdeas Pathak TRACTOR CRANE OPERATOR Work Phone: [facility] 04-20-2023 11:29-0400 Body height 180.34 cm TRACTOR CRANE OPERATOR-C Andreas Pathak TRACTOR CRANE OPERATOR Work Phone: [facility] 04-20-2023 11:29-0400 Body mass index (BMI) [Ratio] 19.6 kg/m2 TRACTOR CRANE OPERATOR-C Andreas Pathak TRACTOR CRANE OPERATOR Work Phone: [facility] 04-20-2023 11:29-0400 Body weight 63.9 kg TRACTOR CRANE OPERATOR-C Andreas Pathak TRACTOR CRANE OPERATOR Work Phone: [facility] 03-19-2023 10:48-[address] Cuff Size DR MARIELY WAGNER MD [address] [place] [address] 03-19-2023 10:48-[address] MARIELY WAGNER MD [address] [place] [address] 03-19-2023 10:48-[address] MARIELY WAGNER MD [address] [place] [address] 03-19-2023 10:48-0500 Body temperature 97.34 [degF] DR MARIELY WAGNER MD [address] [place] [address] 03-19-2023 10:48-0500 Diastolic Blood Pressure Non-Invasive 94 mm[Hg] DR MARIELY WAGNER MD [facility] 03-19-2023 10:48-0500 Heart rate 90 /min DR MARIELY WAGNER MD [address] [place] [address] 03-19-2023 10:48-0500 Reason For Taking VItal Signs DR MARIELY WAGNER MD [address] [place] [address] 03-19-2023 10:48-0500 Respiratory rate 18 /min DR MARIELY WAGNER MD [address] [place] [address] 03-19-2023 10:48-0500 Systolic Blood Pressure Non-Invasive 143 mm[Hg] DR MARIELY WANGER MD [address] [place] [address] 03-19-2023 08:11-0500 Heart rate 86 /min DR MARIELY WAGNER MD [facility] 03-19-2023 06:58-0500 Blood Pressure Cuff Size DR MARIELY WAGNER MD [facility] 03-19-2023 06:58-[address] MARIELY WAGNER MD [address] [place] [address] 03-19-2023 06:58-[address] MARIELY WAGNER MD [address] [place] [address] 03-19-2023 06:58-0500 Body temperature 97.7 [degF] DR MARIELY WAGNER MD [address] [place] [address] 03-19-2023 06:58-0500 Diastolic Blood Pressure Non-Invasive 91 mm[Hg] DR MARIELY WAGNER MD [address] [place] [address] 03-19-2023 06:58-0500 Heart rate 61 /min DR MAREILY WAGNER MD [address] [place] [address] 03-19-2023 06:58-0500 Reason For Taking VItal Signs DR MARIELY WAGNER MD [facility] 03-19-2023 06:58-0500 Respiratory rate 18 /min DR MARIELY WAGNER MD [address] [place] [address] 03-19-2023 06:58-0500 Systolic Blood Pressure Non-Invasive 146 mm[Hg] DR MARIELY WAGNER MD [address] [place] [address] 03-19-2023 04:49-05[address] Pressure Cuff Size DR MARIELY WAGNER MD [facility] 03-19-2023 04:49-[address] MARIELY WAGNER MD [facility] 03-19-2023 04:49-[address] MARIELY WAGNER MD [facility] 03-19-2023 04:49-0500 Body temperature 97.7 [degF] DR MARIELY WAGNER MD [address] [place] [address] 03-19-2023 04:49-0500 Diastolic Blood Pressure Non-Invasive 88 mm[Hg] DR MARIELY WAGNER MD [address] [place] [address] 03-19-2023 04:49-0500 Heart rate 65 /min DR MARIELY WAGNER MD [address] [place] [address] 03-19-2023 04:49-0500 Reason For Taking VItal Signs DR MARIELY WAGNER MD [address] [place] [address] 03-19-2023 04:49-0500 Respiratory rate 18 /min DR MARIELY WAGNER MD [address] [place] [address] 03-19-2023 04:49-0500 Systolic Blood Pressure Non-Invasive 120 mm[Hg] DR MARIELY WAGNER MD [address] [place] [address] 03-18-2023 23:28-0500 Heart rate 69 /min DR MARIELY WAGNER MD [address] [place] [address] 03-18-2023 18:42-0500 Heart rate 57 /min DR MARIELY WAGNER MD [address] [place] [address] 03-18-2023 16:45-0500 Heart rate 84 /min DR MARIELY WAGNER MD [address] [place] [address] 03-18-2023 10:40-0500 Heart rate 80 /min DR MARIELY WAGNER MD [address] [place] [address] 03-18-2023 04:01-0500 Mean blood pressure 105 mm[Hg] DR MARIELY WAGNER MD [address] [place] [address] 03-17-2023 11:11-0500 Heart rate 74 /min DR MARIELY WAGNER MD [facility] 03-16-2023 11:15-0500 Mean blood pressure 99 mm[Hg] DR MARIELY WAGNER MD [facility] 03-16-2023 10:51-0500 Mean blood pressure 111 mm[Hg] DR MARIELY WAGNER MD [facility] 03-15-2023 23:39-0500 Body height 180.[address] MARIELY WAGNER MD [facility] 03-15-2023 23:39-0500 Body weight 68.[address] MARIELY WAGNER MD [facility] 03-15-2023 23:39-0500 Body weight 21.13 kg/m2 DR MARIELY WAGNER MD [facility] 03-15-2023 10:50-0500 Body weight 68.[address] MARIELY WAGNER MD [facility] 11-01-2022 23:04-0400 Diastolic blood pressure 78 mm[Hg] [facility] 11-01-2022 23:04-0400 Heart rate 78 /min [facility] 11-01-2022 23:04-0400 Respiratory rate 18 /min [facility] 11-01-2022 23:04-0400 SaO2% (BldA) [Mass fraction] 95 % [facility] 11-01-2022 23:04-0400 Systolic blood pressure 123 mm[Hg] [facility] 11-01-2022 20:01-0400 Body height 177.8 cm [facility] 11-01-2022 20:01-0400 Body mass index (BMI) [Ratio] 20.3 kg/m2 [facility] 11-01-2022 20:01-0400 Body temperature 98.2 [degF] [facility] 11-01-2022 20:01-0400 Body weight 64.27 kg [facility] 10-15-2022 11:32-0400 Body height 180 cm ANDREAS Dooley CNP [facility] 10-15-2022 11:32-0400 Body weight 20.62 kg/m2 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 [facility] 10-15-2022 11:32-0400 Body weight 66.8 kg 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 [facility] Comment on above: Result Comment: 160# about 2-3 months ag o pt reports d/t diarrhea and GI problems (pt currently figuring this out with PCP and getting tests ran) 10-05-2022 16:00-0400 Diastolic Blood Pressure Non-Invasive 103 1 [employer]ALENA [employer] [facility] 10-05-2022 16:00-0400 Heart rate 69 /min MAGDALENA GODDARDT [employer] [facility] 10-05-2022 16:00-0400 Systolic Blood Pressure Non-Invasive 134 1 MAGDALENA GODDARDT [employer] [facility] 10-05-2022 15:30-0400 Diastolic Blood Pressure Non-Invasive 93 1 MAGDALENA NUNNHeyKikiT [employer] [facility] 10-05-2022 15:30-0400 Heart rate 72 /min MAGDALENA GODDARDT [employer] [facility] 10-05-2022 15:30-0400 Respiratory rate 16 /min MAGDALENA GODDARDT [employer] [facility] 10-05-2022 15:30-0400 Systolic Blood Pressure Non-Invasive 149 1 MAGDALENA GODDARDT [employer] [facility] 10-05-2022 15:00-0400 Diastolic Blood Pressure Non-Invasive 118 1 MAGDALENA GODDARDT [employer] [facility] 10-05-2022 15:00-0400 Systolic Blood Pressure Non-Invasive 145 1 MAGDALENA NICKERSON [employer] [facility] 10-05-2022 14:12-0400 Blood Pressure Location MAGDALENA NICKERSON DO [employer] [facility] 10-05-2022 14:12-0400 Blood Pressure Method MAGDALENA NICKERSON [employer] [facility] 10-05-2022 13:41-0400 Body temperature 97.88 [degF] MAGDALENA NICKRESON [employer] [facility] 10-05-2022 13:41-0400 Heart rate 99 /min MAGDALENA NICKERSON [employer] [facility] 07-21-2022 00:00-0400 Diastolic blood pressure 94 mm[Hg] [facility] 07-21-2022 00:00-0400 Heart rate 79 /min [facility] 07-21-2022 00:00-0400 Respiratory rate 18 /min [facility] 07-21-2022 00:00-0400 SaO2% (BldA) [Mass fraction] 94 % [facility] 07-21-2022 00:00-0400 Systolic blood pressure 144 mm[Hg] [facility] 07-20-2022 19:10-0400 Body mass index (BMI) [Ratio] 21.5 kg/m2 [facility] 07-20-2022 19:10-0400 Body temperature 96.7 [degF] [facility] 07-20-2022 19:10-0400 Body weight 69.9 kg [facility] 05-13-2022 20:38-0400 Body temperature 98.24 [degF] DR MERRICK SINGH DO [facility] 05-13-2022 20:38-0400 Diastolic Blood Pressure Non-Invasive [address] MERRICK SINGH DO [facility] 05-13-2022 20:38-0400 Heart rate 106 /min DR MERRICK SINGH DO [facility] 05-13-2022 20:38-0400 Respiratory rate 18 /min DR MERRICK SINGH DO [facility] 05-13-2022 20:38-0400 Systolic Blood Pressure Non-Invasive [address] MERRICK SINGH DO [facility] 05-13-2022 19:30-0400 Diastolic Blood Pressure Non-Invasive [address] MERRICK SINGH DO [facility] 05-13-2022 19:30-0400 Heart rate 75 /min DR MERRICK SINGH DO [facility] 05-13-2022 19:30-0400 Respiratory rate 18 /min DR MERRICK SINGH DO [facility] 05-13-2022 19:30-0400 Systolic Blood Pressure Non-Invasive [address] MERRICK SINGH DO [facility] 05-13-2022 17:35-[address] MERRICK SINGH DO [facility] 05-13-2022 17:35-[address] MERRICK SINGH DO [facility] 05-13-2022 17:35-0400 Body temperature 98.42 [degF] DR MERRICK SINGH DO [facility] 05-13-2022 17:35-0400 Diastolic Blood Pressure Non-Invasive [address] MERRICK SINGH DO [facility] 05-13-2022 17:35-0400 Heart rate 89 /min DR MERRICK SINGH DO [facility] 05-13-2022 17:35-0400 Respiratory rate 18 /min DR MERRICK SINGH DO [facility] 05-13-2022 17:35-0400 Systolic Blood Pressure Non-Invasive [address] MERRICK SINGH DO [facility] 05-13-2022 17:33-0400 Body temperature 98.42 [degF] DR MERRICK SINGH DO [facility] 03-24-2022 08:25-0500 Body temperature 97.5 [degF] TRACTOR CRANE OPERATOR-C Andreas Pathak TRACTOR CRANE OPERATOR Work Phone: [facility] 03-24-2022 08:25-0500 Diastolic blood pressure 76 mm[Hg] TRACTOR CRANE OPERATOR-C Andreas Pathak TRACTOR CRANE OPERATOR Work Phone: [facility] 03-24-2022 08:25-0500 Heart rate 66 /min TRACTOR CRANE OPERATOR-C Andreas Pathak TRACTOR CRANE OPERATOR Work Phone: [facility] 03-24-2022 08:25-0500 Respiratory rate 16 /min TRACTOR CRANE OPERATOR-C Andreas Pathak TRACTOR CRANE OPERATOR Work Phone: [facility] 03-24-2022 08:25-0500 SaO2% (BldA) [Mass fraction] 95 % TRACTOR CRANE OPERATOR-C Andreas Pathak TRACTOR CRANE OPERATOR Work Phone: [facility] 03-24-2022 08:25-0500 Systolic blood pressure 127 mm[Hg] TRACTOR CRANE OPERATOR-C Andreas Pathak TRACTOR CRANE OPERATOR Work Phone: [facility] 03-22-2022 10:11-0500 Body height 180.34 cm TRACTOR CRANE OPERATOR-C Andreas Pathak TRACTOR CRANE OPERATOR Work Phone: [facility] 03-22-2022 10:11-0500 Body weight 62.3 kg TRACTOR CRANE OPERATOR-C Andreas Pathak TRACTOR CRANE OPERATOR Work Phone: [facility] 03-21-2022 19:44-0500 Body mass index (BMI) [Ratio] 19.1 kg/m2 TRACTOR CRANE OPERATOR-C Andreas Pathak TRACTOR CRANE OPERATOR Work Phone: [facility] 03-21-2022 18:15-0500 Body temperature 98.5 [degF] TRACTOR CRANE OPERATOR-C Andreas Camargokins TRACTOR CRANE OPERATOR Work Phone: [facility] 03-21-2022 18:15-0500 Diastolic blood pressure 99 mm[Hg] TRACTOR CRANE OPERATOR-C Andreas Pathak TRACTOR CRANE OPERATOR Work Phone: [facility] 03-21-2022 18:15-0500 Heart rate 86 /min TRACTOR CRANE OPERATOR-C Andreas Pathak TRACTOR CRANE OPERATOR Work Phone: [facility] 03-21-2022 18:15-0500 Respiratory rate 18 /min TRACTOR CRANE OPERATOR-C Andreas Pathak TRACTOR CRANE OPERATOR Work Phone: [facility] 03-21-2022 18:15-0500 SaO2% (BldA) [Mass fraction] 100 % TRACTOR CRANE OPERATOR-C Andreas Pathak TRACTOR CRANE OPERATOR Work Phone: [facility] 03-21-2022 18:15-0500 Systolic blood pressure 159 mm[Hg] TRACTOR CRANE OPERATOR-C Andreas Pathak TRACTOR CRANE OPERATOR Work Phone: [facility] 03-21-2022 17:43-0500 Body height 180.34 cm TRACTOR CRANE OPERATOR-C Andreas Pathak TRACTOR CRANE OPERATOR Work Phone: [facility] 03-21-2022 17:43-0500 Body mass index (BMI) [Ratio] 20.9 kg/m2 TRACTOR CRANE OPERATOR-C Andreas Pathak TRACTOR CRANE OPERATOR Work Phone: [facility] 03-21-2022 17:43-0500 Body weight 68.03 kg TRACTOR CRANE OPERATOR-C Andreas Pathak TRACTOR CRANE OPERATOR Work Phone: [facility] 02-04-2022 13:17-0500 Body temperature 98.3 [degF] TRACTOR CRANE OPERATOR-C Andreas Pathak TRACTOR CRANE OPERATOR Work Phone: [facility] 02-04-2022 13:17-0500 Diastolic blood pressure 92 mm[Hg] TRACTOR CRANE OPERATOR-C Andreas Luxpkins TRACTOR CRANE OPERATOR Work Phone: [facility] 02-04-2022 13:17-0500 Heart rate 102 /min TRACTOR CRANE OPERATOR-C Andreas Luxpkins TRACTOR CRANE OPERATOR Work Phone: [facility] 02-04-2022 13:17-0500 Respiratory rate 18 /min TRACTOR CRANE OPERATOR-C Andreas Luxpkins TRACTOR CRANE OPERATOR Work Phone: [facility] 02-04-2022 13:17-0500 SaO2% (BldA) [Mass fraction] 100 % TRACTOR CRANE OPERATOR-C Andreas Luxpkins TRACTOR CRANE OPERATOR Work Phone: [facility] 02-04-2022 13:17-0500 Systolic blood pressure 121 mm[Hg] TRACTOR CRANE OPERATOR-C Andreas Luxpkins TRACTOR CRANE OPERATOR Work Phone: [facility] 02-04-2022 03:34-0500 Body weight 70 kg TRACTOR CRANE OPERATOR-C Andreas Luxpkins TRACTOR CRANE OPERATOR Work Phone: [facility] 02-02-2022 11:36-0500 Body height 180.34 cm TRACTOR CRANE OPERATOR-C Andreas Luxpkins TRACTOR CRANE OPERATOR Work Phone: [facility] Work Phone: 02-01-2022 21:44-0500 Body mass index (BMI) [Ratio] 20.2 kg/m2 TRACTOR CRANE OPERATOR-C Andreas Luxpkins TRACTOR CRANE OPERATOR Work Phone: [facility] 02-01-2022 21:00-0500 Body temperature 96.2 [degF] TRACTOR CRANE OPERATOR-C Andreas Luxpkins TRACTOR CRANE OPERATOR Work Phone: [facility] Work Phone: 02-01-2022 21:00-0500 Diastolic blood pressure 82 mm[Hg] TRACTOR CRANE OPERATOR-C Andreas Comal TRACTOR CRANE OPERATOR Work Phone: [facility] Work Phone: 02-01-2022 21:00-0500 Heart rate 128 /min TRACTOR CRANE OPERATOR-C Andreas Comal TRACTOR CRANE OPERATOR Work Phone: [facility] Work Phone: 02-01-2022 21:00-0500 Respiratory rate 13 /min TRACTOR CRANE OPERATOR-C Andreas Pathak TRACTOR CRANE OPERATOR Work Phone: [facility] Work Phone: 02-01-2022 21:00-0500 SaO2% (BldA) [Mass fraction] 100 % TRACTOR CRANE OPERATOR-C Andreas Pathak TRACTOR CRANE OPERATOR Work Phone: [facility] Work Phone: 02-01-2022 21:00-0500 Systolic blood pressure 117 mm[Hg] TRACTOR CRANE OPERATOR-C Andreas Pathak TRACTOR CRANE OPERATOR Work Phone: [facility] Work Phone: 02-01-2022 19:02-0500 Body height 180.34 cm TRACTOR CRANE OPERATOR-C Andreas Pathak TRACTOR CRANE OPERATOR Work Phone: [facility] Work Phone: 02-01-2022 19:02-0500 Body mass index (BMI) [Ratio] 21.5 kg/m2 TRACTOR CRANE OPERATOR-C Andreas Pathak TRACTOR CRANE OPERATOR Work Phone: [facility] Work Phone: 02-01-2022 19:02-0500 Body weight 70.1 kg TRACTOR CRANE OPERATOR-C Andreas Pathak TRACTOR CRANE OPERATOR Work Phone: [facility] Work Phone: 11-14-2021 09:51-0400 Heart rate 89 /min TRACTOR CRANE OPERATOR-C Andreas Pathak TRACTOR CRANE OPERATOR Work Phone: [facility] Work Phone: 11-14-2021 08:30-0400 Body temperature 98.5 [degF] TRACTOR CRANE OPERATOR-C Andreas Pathak TRACTOR CRANE OPERATOR Work Phone: [facility] Work Phone: 11-14-2021 08:30-0400 Diastolic blood pressure 72 mm[Hg] TRACTOR CRANE OPERATOR-C Andreas Pathak TRACTOR CRANE OPERATOR Work Phone: [facility] Work Phone: 11-14-2021 08:30-0400 Respiratory rate 16 /min TRACTOR CRANE OPERATOR-C Andreas Luxpkins TRACTOR CRANE OPERATOR Work Phone: [facility] Work Phone: 11-14-2021 08:30-0400 SaO2% (BldA) [Mass fraction] 100 % TRACTOR CRANE OPERATOR-C Andreas Luxpkins TRACTOR CRANE OPERATOR Work Phone: [facility] Work Phone: 11-14-2021 08:30-0400 Systolic blood pressure 121 mm[Hg] TRACTOR CRANE OPERATOR-C Andreas Luxpkins TRACTOR CRANE OPERATOR Work Phone: [facility] Work Phone: 11-12-2021 10:35-0400 Body weight 68.8 kg TRACTOR CRANE OPERATOR-C Andreas Luxpkins TRACTOR CRANE OPERATOR Work Phone: [facility] Work Phone: 11-11-2021 17:38-0400 Body mass index (BMI) [Ratio] 21.1 kg/m2 TRACTOR CRANE OPERATOR-C Andreas Luxpkins TRACTOR CRANE OPERATOR Work Phone: [facility] Work Phone: 11-08-2021 10:47-0400 Body temperature 98.6 [degF] TRACTOR CRANE OPERATOR-C Andreas Luxpkins TRACTOR CRANE OPERATOR Work Phone: [facility] Work Phone: 11-08-2021 10:47-0400 Diastolic blood pressure 95 mm[Hg] TRACTOR CRANE OPERATOR-C Andreas Luxpkins TRACTOR CRANE OPERATOR Work Phone: [facility] Work Phone: 11-08-2021 10:47-0400 Heart rate 82 /min TRACTOR CRANE OPERATOR-C Andreas Comal TRACTOR CRANE OPERATOR Work Phone: [facility] Work Phone: 11-08-2021 10:47-0400 Respiratory rate 16 /min TRACTOR CRANE OPERATOR-C Andreas Zo TRACTOR CRANE OPERATOR Work Phone: [facility] Work Phone: 11-08-2021 10:47-0400 SaO2% (BldA) [Mass fraction] 98 % TRACTOR CRANE OPERATOR-C Andreas Pathak TRACTOR CRANE OPERATOR Work Phone: [facility] Work Phone: 11-08-2021 10:47-0400 Systolic blood pressure 114 mm[Hg] TRACTOR CRANE OPERATOR-C Andreas Pahtak TRACTOR CRANE OPERATOR Work Phone: [facility] Work Phone: 11-06-2021 10:33-0400 Body weight 69.4 kg TRACTOR CRANE OPERATOR-C Andreas Pathak TRACTOR CRANE OPERATOR Work Phone: [facility] Work Phone: 11-05-2021 20:28-0400 Body temperature 98 [degF] TRACTOR CRANE OPERATOR-C Andreas Pathak TRACTOR CRANE OPERATOR Work Phone: [facility] Work Phone: 11-05-2021 20:28-0400 Diastolic blood pressure 67 mm[Hg] TRACTOR CRANE OPERATOR-C Andreas Pathak TRACTOR CRANE OPERATOR Work Phone: [facility] Work Phone: 11-05-2021 20:28-0400 Heart rate 107 /min TRACTOR CRANE OPERATOR-C Andreas Pathak TRACTOR CRANE OPERATOR Work Phone: [facility] Work Phone: 11-05-2021 20:28-0400 Respiratory rate 18 /min TRACTOR CRANE OPERATOR-C Andreas Pathak TRACTOR CRANE OPERATOR Work Phone: [facility] Work Phone: 11-05-2021 20:28-0400 SaO2% (BldA) [Mass fraction] 97 % TRACTOR CRANE OPERATOR-C Andreas Pathak TRACTOR CRANE OPERATOR Work Phone: [facility] Work Phone: 11-05-2021 20:28-0400 Systolic blood pressure 116 mm[Hg] TRACTOR CRANE OPERATOR-C Andreas Luxpkins TRACTOR CRANE OPERATOR Work Phone: [facility] Work Phone: 11-05-2021 18:03-0400 Body mass index (BMI) [Ratio] 21.3 kg/m2 TRACTOR CRANE OPERATOR-C Andreas Luxpkins TRACTOR CRANE OPERATOR Work Phone: [facility] Work Phone: 11-05-2021 16:18-0400 Body height 180.34 cm TRACTOR CRANE OPERATOR-C Andreas Luxpkins TRACTOR CRANE OPERATOR Work Phone: [facility] Work Phone: 11-05-2021 16:18-0400 Body mass index (BMI) [Ratio] 24.4 kg/m2 TRACTOR CRANE OPERATOR-C Andreas Comal TRACTOR CRANE OPERATOR Work Phone: [facility] Work Phone: 11-05-2021 16:18-0400 Body weight 79.37 kg TRACTOR CRANE OPERATOR-C Andreas Zo TRACTOR CRANE OPERATOR Work Phone: [facility] Work Phone: 10-06-2021 23:34-0400 Diastolic blood pressure 76 mm[Hg] TRACTOR CRANE OPERATOR-C Andreas Luxpkins TRACTOR CRANE OPERATOR Work Phone: [facility] Work Phone: 10-06-2021 23:34-0400 Heart rate 100 /min TRACTOR CRANE OPERATOR-C Andreas Luxpkins TRACTOR CRANE OPERATOR Work Phone: [facility] Work Phone: 10-06-2021 23:34-0400 Respiratory rate 18 /min TRACTOR CRANE OPERATOR-C Andreas Comal TRACTOR CRANE OPERATOR Work Phone: [facility] Work Phone: 10-06-2021 23:34-0400 SaO2% (BldA) [Mass fraction] 95 % TRACTOR CRANE OPERATOR-C Andreas Comal TRACTOR CRANE OPERATOR Work Phone: [facility] Work Phone: 10-06-2021 23:34-0400 Systolic blood pressure 114 mm[Hg] TRACTOR CRANE OPERATOR-C Andreas Zo TRACTOR CRANE OPERATOR Work Phone: [facility] Work Phone: 10-06-2021 18:43-0400 Body temperature 98 [degF] TRACTOR CRANE OPERATOR-C Andreas Pathak TRACTOR CRANE OPERATOR Work Phone: [facility] Work Phone: 10-06-2021 12:22-0400 Body height 180.34 cm TRACTOR CRANE OPERATOR-C Andreas Luxpkins TRACTOR CRANE OPERATOR Work Phone: [facility] Work Phone: 10-06-2021 12:22-0400 Body mass index (BMI) [Ratio] 20.1 kg/m2 TRACTOR CRANE OPERATOR-C Andreas Luxpkins TRACTOR CRANE OPERATOR Work Phone: [facility] Work Phone: 10-06-2021 12:22-0400 Body weight 65.6 kg TRACTOR CRANE OPERATOR-C Andreas Luxpkins TRACTOR CRANE OPERATOR Work Phone: [facility] Work Phone: 09-30-2021 14:53-0400 Diastolic blood pressure 81 mm[Hg] TRACTOR CRANE OPERATOR-C Andreas Luxpkins TRACTOR CRANE OPERATOR Work Phone: [facility] Work Phone: 09-30-2021 14:53-0400 Heart rate 100 /min TRACTOR CRANE OPERATOR-C Andreas Pathak TRACTOR CRANE OPERATOR Work Phone: [facility] Work Phone: 09-30-2021 14:53-0400 Respiratory rate 18 /min TRACTOR CRANE OPERATOR-C Andreas Luxpkins TRACTOR CRANE OPERATOR Work Phone: [facility] Work Phone: 09-30-2021 14:53-0400 SaO2% (BldA) [Mass fraction] 97 % TRACTOR CRANE OPERATOR-C Andreas Luxpkins TRACTOR CRANE OPERATOR Work Phone: [facility] Work Phone: 09-30-2021 14:53-0400 Systolic blood pressure 112 mm[Hg] TRACTOR CRANE OPERATOR-C Andreas Luxpkins TRACTOR CRANE OPERATOR Work Phone: [facility] Work Phone: 09-30-2021 13:34-0400 Body height 180.34 cm TRACTOR CRANE OPERATOR-C Andreas Luxpkins TRACTOR CRANE OPERATOR Work Phone: [facility] Work Phone: 09-30-2021 13:34-0400 Body mass index (BMI) [Ratio] 21 kg/m2 TRACTOR CRANE OPERATOR-C Andreas Luxpkins TRACTOR CRANE OPERATOR Work Phone: [facility] Work Phone: 09-30-2021 13:34-0400 Body temperature 97.1 [degF] TRACTOR CRANE OPERATOR-C Andreas Luxpkins TRACTOR CRANE OPERATOR Work Phone: [facility] Work Phone: 09-30-2021 13:34-0400 Body weight 68.49 kg TRACTOR CRANE OPERATOR-C Andreas Comal TRACTOR CRANE OPERATOR Work Phone: [facility] Work Phone: 06-01-2021 09:42-0400 Diastolic blood pressure 86 mm[Hg] TRACTOR CRANE OPERATOR-C Andreas Luxpkins TRACTOR CRANE OPERATOR Work Phone: [facility] Work Phone: 06-01-2021 09:42-0400 Heart rate 67 /min TRACTOR CRANE OPERATOR-C Andreas Luxpkins TRACTOR CRANE OPERATOR Work Phone: [facility] Work Phone: 06-01-2021 09:42-0400 Systolic blood pressure 142 mm[Hg] TRACTOR CRANE OPERATOR-C Andreas Zo TRACTOR CRANE OPERATOR Work Phone: [facility] Work Phone: 06-01-2021 09:40-0400 Body temperature 98.4 [degF] TRACTOR CRANE OPERATOR-C Andreas Zo TRACTOR CRANE OPERATOR Work Phone: [facility] Work Phone: 06-01-2021 09:40-0400 Respiratory rate 18 /min TRACTOR CRANE OPERATOR-C Andreas Zo TRACTOR CRANE OPERATOR Work Phone: [facility] Work Phone: 06-01-2021 09:40-0400 SaO2% (BldA) [Mass fraction] 99 % TRACTOR CRANE OPERATOR-C Andreas Pathak TRACTOR CRANE OPERATOR Work Phone: [facility] Work Phone: 05-30-2021 11:48-0400 Body height 165.1 cm TRACTOR CRANE OPERATOR-C Andreas Pathak TRACTOR CRANE OPERATOR Work Phone: [facility] Work Phone: 05-30-2021 11:48-0400 Body weight 74.84 kg TRACTOR CRANE OPERATOR-C Andreas Pathak TRACTOR CRANE OPERATOR Work Phone: [facility] Work Phone: 05-29-2021 22:10-0400 Body mass index (BMI) [Ratio] 27.4 kg/m2 TRACTOR CRANE OPERATOR-C Andreas Pathak TRACTOR CRANE OPERATOR Work Phone: [facility] Work Phone: 05-29-2021 20:49-0400 Body temperature 98.3 [degF] TRACTOR CRANE OPERATOR-C Andreas Pathak TRACTOR CRANE OPERATOR Work Phone: [facility] Work Phone: 05-29-2021 20:49-0400 Diastolic blood pressure 79 mm[Hg] TRACTOR CRANE OPERATOR-C Andreas Pathak TRACTOR CRANE OPERATOR Work Phone: [facility] Work Phone: 05-29-2021 20:49-0400 Heart rate 115 /min TRACTOR CRANE OPERATOR-C Andreas Pathak TRACTOR CRANE OPERATOR Work Phone: [facility] Work Phone: 05-29-2021 20:49-0400 Respiratory rate 18 /min TRACTOR CRANE OPERATOR-C Andreas Pathak TRACTOR CRANE OPERATOR Work Phone: [facility] Work Phone: 05-29-2021 20:49-0400 SaO2% (BldA) [Mass fraction] 95 % TRACTOR CRANE OPERATOR-C Andreas Pathak TRACTOR CRANE OPERATOR Work Phone: [facility] Work Phone: 05-29-2021 20:49-0400 Systolic blood pressure 127 mm[Hg] TRACTOR CRANE OPERATOR-C Andreas Pathak TRACTOR CRANE OPERATOR Work Phone: [facility] Work Phone: 05-29-2021 19:09-0400 Body height 180.34 cm TRACTOR CRANE OPERATOR-C Andreas Pathak TRACTOR CRANE OPERATOR Work Phone: [facility] Work Phone: 05-29-2021 19:09-0400 Body mass index (BMI) [Ratio] 23 kg/m2 TRACTOR CRANE OPERATOR-C Andreas Pathak TRACTOR CRANE OPERATOR Work Phone: [facility] Work Phone: 05-29-2021 19:09-0400 Body weight 74.84 kg TRACTOR CRANE OPERATOR-C Andreas Pathak TRACTOR CRANE OPERATOR Work Phone: [facility] Work Phone: 05-22-2021 07:51-0400 Respiratory rate 16 /min TRACTOR CRANE OPERATOR-C Andreas Pathak TRACTOR CRANE OPERATOR Work Phone: [facility] Work Phone: 05-22-2021 06:30-0400 Body temperature 97.9 [degF] TRACTOR CRANE OPERATOR-C Andreas Pathak TRACTOR CRANE OPERATOR Work Phone: [facility] Work Phone: 05-22-2021 06:30-0400 Diastolic blood pressure 83 mm[Hg] TRACTOR CRANE OPERATOR-C Andreas Pathak TRACTOR CRANE OPERATOR Work Phone: [facility] Work Phone: 05-22-2021 06:30-0400 Heart rate 100 /min TRACTOR CRANE OPERATOR-C Andreas Pathak TRACTOR CRANE OPERATOR Work Phone: [facility] Work Phone: 05-22-2021 06:30-0400 SaO2% (BldA) [Mass fraction] 95 % TRACTOR CRANE OPERATOR-C Andreas Pathak TRACTOR CRANE OPERATOR Work Phone: [facility] Work Phone: 05-22-2021 06:30-0400 Systolic blood pressure 147 mm[Hg] TRACTOR CRANE OPERATOR-C Andreas Pathak TRACTOR CRANE OPERATOR Work Phone: [facility] Work Phone: 05-21-2021 18:28-0400 Body mass index (BMI) [Ratio] 24 kg/m2 TRACTOR CRANE OPERATOR-C Andreas Pathak TRACTOR CRANE OPERATOR Work Phone: [facility] Work Phone: 05-21-2021 18:28-0400 Body weight 74 kg TRACTOR CRANE OPERATOR-C Andreas Pathak TRACTOR CRANE OPERATOR Work Phone: [facility] Work Phone: 05-05-2021 14:31-0400 Diastolic blood pressure 96 mm[Hg] TRACTOR CRANE OPERATOR-C Andreas Pathak TRACTOR CRANE OPERATOR Work Phone: [facility] Work Phone: 05-05-2021 14:31-0400 Heart rate 87 /min TRACTOR CRANE OPERATOR-C Andreas Pathak TRACTOR CRANE OPERATOR Work Phone: [facility] Work Phone: 05-05-2021 14:31-0400 Respiratory rate 16 /min TRACTOR CRANE OPERATOR-C Andreas Pathak TRACTOR CRANE OPERATOR Work Phone: [facility] Work Phone: 05-05-2021 14:31-0400 SaO2% (BldA) [Mass fraction] 100 % TRACTOR CRANE OPERATOR-C Andreas Pathak TRACTOR CRANE OPERATOR Work Phone: [facility] Work Phone: 05-05-2021 14:31-0400 Systolic blood pressure 145 mm[Hg] TRACTOR CRANE OPERATOR-C Andreas Luxpkins TRACTOR CRANE OPERATOR Work Phone: [facility] Work Phone: 05-05-2021 13:48-0400 Body temperature 98.4 [degF] TRACTOR CRANE OPERATOR-C Andreas Pathak TRACTOR CRANE OPERATOR Work Phone: [facility] Work Phone: 05-04-2021 15:40-0400 Body height 180.34 cm TRACTOR CRANE OPERATOR-C Andreas Pathak TRACTOR CRANE OPERATOR Work Phone: [facility] Work Phone: 05-04-2021 15:40-0400 Body mass index (BMI) [Ratio] 22.3 kg/m2 TRACTOR CRANE OPERATOR-C Andreas Pathak TRACTOR CRANE OPERATOR Work Phone: [facility] Work Phone: 05-04-2021 15:40-0400 Body weight 72.5 kg TRACTOR CRANE OPERATOR-C Andreas Pathak TRACTOR CRANE OPERATOR Work Phone: [facility] Work Phone: 05-04-2021 15:36-0400 Body temperature 98 [degF] [facility] Work Phone: 05-04-2021 15:36-0400 Diastolic blood pressure 101 mm[Hg] [facility] Work Phone: 05-04-2021 15:36-0400 Heart rate 97 /min [facility] Work Phone: 05-04-2021 15:36-0400 Respiratory rate 18 /min [facility] Work Phone: 05-04-2021 15:36-0400 SaO2% (BldA) [Mass fraction] 99 % [facility] Work Phone: 05-04-2021 15:36-0400 Systolic blood pressure 157 mm[Hg] [facility] Work Phone: 05-04-2021 13:18-0400 Body height 180.34 cm [facility] Work Phone: 05-04-2021 13:18-0400 Body mass index (BMI) [Ratio] 23 kg/m2 [facility] Work Phone: 05-04-2021 13:18-0400 Body weight 74.84 kg [facility] Work Phone: 05-02-2021 15:49-0400 Diastolic blood pressure 92 mm[Hg] DR SHILPI BURNS MD [facility] 05-02-2021 15:49-0400 Heart rate 84 /min DR SHILPI BURNS MD [facility] 05-02-2021 15:49-0400 Respiratory rate 16 /min DR SHILPI BURNS MD [facility] 05-02-2021 15:49-0400 Systolic blood pressure 143 mm[Hg] DR SHILPI BURNS MD [facility] 05-02-2021 14:22-0400 Diastolic blood pressure 85 mm[Hg] DR SHILPI BURNS MD [facility] 05-02-2021 14:22-0400 Heart rate 87 /min DR SHILPI BURNS MD [facility] 05-02-2021 14:22-0400 Respiratory rate 16 /min DR SHILPI BURNS MD [facility] 05-02-2021 14:22-0400 Systolic blood pressure 152 mm[Hg] DR SHILPI BURNS MD [facility] 05-02-2021 13:50-0400 Diastolic blood pressure 95 mm[Hg] DR SHILPI BURNS MD [facility] 05-02-2021 13:50-0400 Heart rate 88 /min DR SHILPI BURNS MD [facility] 05-02-2021 13:50-0400 Mean blood pressure 112 mm[Hg] DR SHILPI BURNS MD [facility] 05-02-2021 13:50-0400 Respiratory rate 16 /min DR SHILPI BURNS MD [facility] 05-02-2021 13:50-0400 Systolic blood pressure 145 mm[Hg] DR SHILPI BURNS MD [facility] 05-02-2021 13:04-0400 Body temperature 98.6 [degF] DR SHILPI BURNS MD [facility] 05-02-2021 13:04-0400 Body weight 73.[address] SHILPI BURNS MD [facility] 05-02-2021 13:04-0400 Heart rate 120 /min DR SHILPI BURNS MD [facility] Encounters Encounter Date Encounter Type Care Provider Facility Start: 12-19-2024 End: 12-19-2024 Emergency department patient visit Sigrid Goodmannger [facility] Facility:[facility] Start: 12-09-2024 ambulatory Sigrid Jakub [facility] Faci lity:[facility] Start: 12-09-2024 End: 12-11-2024 Evaluation and management of inpatient Sigrid Jakub [facility] Facility:[facility] Start: 10-23-2024 End: 10-23-2024 ambulatory Talia Serrano APRN.HIGH SCHO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 Phone: Cardiology Comment on above: TAVR Meeting Start: 10-20-2024 End: 10-20-2024 ambulatory Talia Serrano APRN.HIGH SCHO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 Phone: Cardiology Comment on above: TAVR Schedule Start: 10-17-2024 End: 10-27-2024 Evaluation and management of inpatient PIPER PEARSON Facility:[facility] Start: 10-16-2024 ambulatory Sigrid Jakub [facility] Faci lity:[facility] Start: 10-12-2024 ambulatory Ashley Alvarado Facility :[facility] Start: 10-12-2024 End: 10-17-2024 Evaluation and management of inpatient Dr. Rolan Romero DO Work Phone: -Progressive Care Unit Start: 10-12-2024 Dr. Diana miranda MD -Progressive Care Unit Work Phone: Start: 10-11-2024 ambulatory Sigrid Call [facility] Faci lity:[facility] Start: 10-10-2024 End: 10-10-2024 Heather Daley NP-Stephen -[facility] Work Phone: Start: 10-10-2024 End: 10-10-2024 ambulatory Sigrid Call [facility] Facility:[facility] Start: 10-06-2024 End: 10-06-2024 Dr. Rolan Romero DO Work Phone: -Emergency Department Work Phone: Start: 10-06-2024 End: 10-06-2024 Emergency department patient visit Dr. Rolan Romero DO Work Phone: -Emergency Department Start: 09-28-2024 End: 09-28-2024 Peggy BALDERAS -[facility] Work Phone: Start: 09-28-2024 End: 09-28-[address] Rolan oRmero DO Work Phone: -[facility] Start: 09-18-2024 [facility] Start: 09-07-[facility] Start: 09-04-2024 Dr. Lucas Frausto MD -[facility] Work Phone: Start: 09-03-2024 Dr. Lucas Frausto MD -[facility] Work Phone: Start: 09-02-2024 Dr. Lucas Frausto MD -[facility] Work Phone: Start: 09-01-2024 Antony Espitia DO -[facility] Start: 09-01-2024 Bernadette Pisano TRACTOR CRANE OPERATOR-C -[facility] Start: 09-01-2024 Dr. Lucas Frausto MD -[facility] Work Phone: Start: 09-01-2024 Dr. Barry Sheehan DO -[facility] Start: 08-31-2024 Antony Espitia DO -[facility] Start: 08-31-2024 Dr. Lucas Frausto MD -[facility] Work Phone: Start: 08-31-2024 Dr. Barry Sheehan DO -[facility] Start: 08-30-2024 Bernadette Pisano TRACTOR CRANE OPERATOR-C -[facility] Start: 08-30-2024 Dr. Lucas Frausto MD -[facility] Work Phone: Start: 08-29-2024 End: 09-04-2024 Evaluation and management of inpatient Dr. Rolan Romero DO Work Phone: -Progressive Care Unit Start: 08-29-2024 ambulatory Lucas Frausto Facility:[facility] Start: 08-29-2024 End: 09-04-2024 Dr. Jacky Vila MD -Progressive Care Unit Work Phone: Start: 08-13-2024 End: 08-14-2024 Refill Marianna A Queden 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 Phone: [facility] Comment on above: Refill Request Start: 08-03-2024 End: 08-04-2024 Refill Marianna A Queden 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 Phone: [facility] Comment on above: Refill Request Start: 08-03-2024 Dr. Iman palmer MD -[facility] Work Phone: Start: 08-02-2024 Suyapa BALDERAS [facility] Start: 08-02-2024 Dr. Valeriy rivers DO -[facility] Work Phone: Start: 08-01-2024 ambulatory Sigrid Call [facility] Faci lity:[facility] Start: 08-01-2024 End: 08-03-2024 Evaluation and management of inpatient No Primary Care Physician [facility] Work Phone: Start: 08-01-2024 End: 08-03-2024 Dr. Iman Aguayo MD -Progressive Care Unit Work Phone: Start: 07-20-2024 End: 07-20-2024 ambulatory No Primary Care Physician [facility] Work Phone: Start: 07-20-2024 End: 07-20-2024 Dr. Trung Bob MD -[facility] Work Phone: Start: 07-17-2024 End: 07-17-2024 ambulatory Radha Etienne RN Work Phone: Flatbed Driver Start: 07-17-2024 End: 07-17-2024 Home visit Radha Etienne RN Work Phone: Flatbed Driver Comment on above: Transition Of Care ( Anrdes D/C 07/14/24) Initial phone contact for Transitional Care Management Start: 07-14-2024 Dr. Conrado moura MD -[facility] Work Phone: Start: 07-13-2024 Dr. Conrado moura MD -[facility] Work Phone: Start: 07-13-2024 Dian cabrera PA-C -[facility] Start: 07-12-2024 Dian cabrera PA-C -[facility] Start: 07-12-2024 Dr. Conrado moura MD -[facility] Work Phone: Start: 07-11-2024 End: 07-14-2024 Evaluation and management of inpatient No Primary Care Physician [facility] Work Phone: Start: 07-11-2024 End: 07-14-2024 Dr. Conrado Morel MD -[facility] 3 Work Phone: Start: 07-11-2024 End: 07-11-2024 ambulatory Radha Etienne RN Work Phone: [facility] Flatbed [employer] Start: 07-11-2024 End: 07-11-2024 Home visit Radha Etienne RN Work Phone: Flatbed Driver Comment on above: Transition Of Care ( TCM f/u/) Weekly phone contact (Recurring) for Transitional Care Management Start: 07-07-2024 End: 07-07-2024 ambulatory Radha Etienne RN Work Phone: [facility] Flatbed [employer] Start: 07-07-2024 End: 07-07-2024 Home visit Radha Etienne RN Work Phone: Flatbed Driver Comment on above: Transition Of Care ( Andres D/C 07/06/24) Initial phone contact for Transitional Care Management Start: 07-06-2024 Dr. Chris Aragon [facility] Work Phone: Start: 07-05-2024 Dr. Chris Aragon [facility] Work Phone: Start: 07-04-2024 Antony Espitia DO [facility] Start: 07-04-2024 Dr. Chris Aragon [facility] Work Phone: Start: 07-04-2024 Dr. Yaneli hall MD -[facility] Start: 07-03-2024 ambulatory [facility] Facility:[facility] Start: 07-03-2024 Antony Friend DO -[facility] Start: 07-02-2024 Dr. Melonie De La Rosa DO [facility] Work Phone: Start: 07-01-2024 Dr. Melonie De La Rosa [facility] Work Phone: Start: 06-30-2024 End: 07-06-2024 Evaluation and management of inpatient No Primary Care Physician [facility] Work Phone: Start: 06-30-2024 End: 07-06-2024 Dr. Chris Aragon [facility] Work Phone: Start: 06-30-2024 ambulatory Conrado Pro Facili ty:[facility] Start: 06-28-2024 Non-patient / Non-visit Dr. Melonie De La Rosa [facility] Work Phone: Start: 06-28-2024 Antony Friend DO -[facility] Start: 06-27-2024 Non-patient / Non-visit Antonymarsha Olivere nd DO -[facility] Start: 06-27-2024 Antony Friend DO -[facility] Start: 06-27-2024 Non-patient / Non-visit Dr. Melonie De La Rosa [facility] Work Phone: Start: 06-27-2024 Dr. Melonie De La Rosa [facility] Work Phone: Start: 06-26-2024 Non-patient / Non-visit Antony Frie nd DO -[facility] Start: 06-26-2024 Antony Friend DO -[facility] Start: 06-26-2024 End: 06-26-2024 Telephone encounter Marianna Wagner APRN.HIGH SCHO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 Phone: [facility] Comment on above: Lab Orders Start: 06-26-2024 Non-patient / Non-visit Dr. Melonie De La Rosa [facility] Work Phone: Start: 06-26-2024 Dr. Melonie [facility] Work Phone: Start: 06-25-2024 ambulatory Conrado Pro [facility] ty:[facility] Start: 06-25-2024 End: 06-28-2024 Evaluation and management of inpatient Dr. Conrado Pro DO -Progressive Care Unit Work Phone: Start: 06-25-2024 End: 06-28-2024 Dr. Melonie [facility] Work Phone: Start: 06-21-2024 End: 06-21-2024 Telephone encounter Marianna A Queden 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 Phone: [facility] Start: 05-28-2024 End: 05-29-2024 Refill Marianna A Queden 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 Phone: [facility] Comment on above: Refill Request Start: 05-14-2024 End: 05-15-2024 Refill Marianna A Queden 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 Phone: [facility] Comment on above: Refill Request Start: 04-13-2024 End: 04-13-2024 ambulatory Trung Bob Facility:[facility] Start: 04-13-2024 End: 04-13-[address] [facility]ung [facility] Work Phone: Start: 04-13-2024 End: 04-13-2024 Dr. 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) Start: 04-10-2024 End: 06-10-2024 Follow-up encounter Susana Ramirez APRN.HIGH SCHO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 Phone: [facility] [place] Start: 04-10-2024 End: 04-10-2024 Refill Ramy C Sheets DO Work Phone: [facility] Comment on above: Refill Request Start: 04-05-2024 ambulatory MARIANNA WAGNER Facili ty:[facility] Start: 04-05-2024 End: 04-05-2024 Subsequent hospital visit by physician Phoebe Vazquez MD Work Phone: [facility] Endoscopy Comment on above: Anemia, unspecified type [D64.9] Start: 03-31-2024 End: 03-31-2024 Telephone encounter Phoebe Vazquez MD Work Phone: General Surgery Comment on above: Returning Patient's Call Start: 03-29-2024 End: 03-29-2024 Telephone encounter Vandana Edwards Work Phone: Hematology/Oncology Start: 03-27-2024 End: 03-28-2024 Follow-up encounter Marianna Wagner APRN.HIGH SCHO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 Phone: [facility] Comment on above: Type 2 diabetes kirk itus with complication, with long-term current use of insulin (HCC) Start: 03-24-2024 End: 03-24-2024 Telephone encounter Brandy Motta PA-C Work Phone: [place] Provider Adult Comment on above: Patient Question Start: 03-14-2024 End: 03-14-2024 ambulatory RAMY C SHEETS Facility:[facility] Start: 03-13-2024 End: 03-14-2024 Telephone encounter Phoebe Vazquez MD Work Phone: [facility] Comment on above: Patient Question Start: 03-08-2024 End: 03-08-2024 Refill Marianna A Queden 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 Phone: [facility] Comment on above: Refill Request Start: 02-21-2024 End: 02-21-2024 Refill Marianna A Queden 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 Phone: [facility] Comment on above: Refill Request Start: 02-21-2024 End: 02-21-2024 Telephone encounter Marianna A Queden 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 Phone: [facility] Comment on above: Patient Question Start: 02-20-2024 End: 02-21-2024 Refill Marianna A Queden 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 Phone: [facility] Comment on above: Refill Request Start: 02-16-2024 End: 03-03-2024 Telephone encounter Marianna A Queden 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 Phone: [facility] Comment on above: Lab Orders Start: 02-08-2024 End: 02-08-2024 Refill Marianna A Queden 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 Phone: [facility] Comment on above: Refill Request Start: 01-20-2024 End: 01-20-2024 Refill Marianna A Queden 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 Phone: [facility] Comment on above: Refill Request Start: 01-14-2024 End: 01-29-2024 Telephone encounter Vandana Edwards Work Phone: Hematology/Oncology Comment on above: Appointment Start: 01-13-2024 End: 01-13-2024 ambulatory No Primary Care Physician Facility:[facility] Start: 12-31-2023 End: 12-31-2023 Telephone encounter Sabra Desouza APRN.LITHOGRAPHIC RETOUCHER APPRENTICE Work Phone: [facility] Comment on above: Anesthesia Consult Start: 12-27-2023 End: 12-27-2023 Patient encounter procedure Marianna A Queden 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 Phone: [facility] Comment on above: Primary hypertension (Primary Dx); Type 2 diabetes mellitus with complication, with long-term current use of insulin (HCC); Stage 3 chronic kidney disease, unspecified whether stage 3a or 3b CKD (HCC); Hyperlipidemia, mixed; Gastroesophageal reflux disease, unspecified whether esophagitis present; Chronic pancreatitis, unspecified pancreatitis type (HCC); Anemia, unspecified type Start: 12-27-2023 End: 12-27-2023 ambulatory MARIANNA WAGNER Facility[facility] Start: 12-24-2023 End: 12-24-2023 ambulatory SUSANA RAMIREZ Facility:[facility] Start: 12-24-2023 End: 12-24-2023 Office outpatient new 45 minutes Susana Ramirez APRN.HIGH SCHO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 Phone: [facility] [place] Comment on above: Anemia, unspecified type (Primary Dx); Weight loss; Chronic pancreatitis, unspecified pancreatitis type (HCC); Epigastric pain; Right lower quadrant abdominal pain Start: 12-16-2023 End: 12-16-2023 Telephone encounter Marianna Wagner APRN.CNP Work Phone: [facility] Comment on above: Results Start: 12-08-2023 ambulatory MARIANNA WAGNER [facility] Start: 12-08-2023 End: 12-08-2023 Subsequent hospital visit by physician Ct [facility] Radiology Comment on above: Diarrhea, unspecifie d type [R19.7] Start: 12-07-2023 End: 12-07-2023 Telephone encounter Marianna Wagner 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 Phone: [facility] Start: 12-02-2023 End: 12-02-2023 Subsequent hospital visit by physician Ct [facility] Wstr (I-Stat) Work Phone: Cat Scan Start: 11-26-2023 End: 11-26-2023 Refill Marianna Wagner APRN.CNP Work Phone: [facility] Comment on above: Refill Request Start: 11-25-2023 End: 11-29-2023 Telephone encounter Marianna Tayla Fátima 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 Phone: [facility] Comment on above: denial: [id number] JIMÉNEZ FERNANDO DUMONT Start: 11-16-2023 End: 11-16-2023 Telephone encounter Marianna Tayla Jasonden 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 Phone: [facility] Comment on above: Patient Update Start: 11-15-2023 End: 11-15-2023 ambulatory Vandana Edwards Work Phone: Hematology/Oncology Comment on above: Anemia, unspecified type (Primary Dx); Diarrhea of presumed infectious origin; 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); Medically complex patient Start: 11-15-2023 End: 11-15-2023 Patient encounter procedure Vandana Edwards Work Phone: Hematology/Oncology Start: 11-07-2023 End: 11-09-2023 Telephone encounter Marianna Wagner 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 Phone: [facility] Comment on above: Results; Orders Start: 11-06-2023 End: 11-08-2023 Refill Marianna Wagner 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 Phone: [facility] Comment on above: Refill Request Start: 11-05-2023 End: 11-05-2023 ambulatory Yessica Umana LPN [facility] Start: 10-30-2023 End: 10-30-2023 Emergency department patient visit ANN-MARIE WILMA DO [facility] Start: 10-21-2023 End: 10-21-2023 Subsequent hospital visit by physician Kira [facility] W[facility] (I-Stat) Work Phone: Cat Scan Comment on above: Generalized abdomina l pain [R10.84] Start: 10-19-2023 End: 10-20-2023 Telephone encounter Jacky Sebastian DO Work Phone: Hematology/Oncology Comment on above: New Patient Start: 10-17-2023 End: 10-20-2023 Telephone encounter Marianna Wagner 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 Phone: [facility] Comment on above: Results Start: 10-14-2023 End: 10-14-2023 Patient encounter procedure Marianna Wagner 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 Phone: [facility] Comment on above: Generalized abdomina l pain [...] Start: 10-14-2023 End: 10-14-2023 ambulatory MARIANNA WAGNER [facility] Start: 10-07-2023 End: 10-12-2023 Telephone encounter Marianna Wagner 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 Phone: [facility] Comment on above: Results; Orders Start: 09-24-2023 Telephone encounter Marianna Wagner 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 Phone: [facility] Comment on above: Patient Question Start: 09-15-2023 ambulatory Radha Bartholomew lm, RN AG Flatbed Driver Start: 09-15-2023 Home visit Radha Bartholomew lm, RN AG Flatbed Driver Comment on above: Primary Care Coordin ator Chronic Care (Care Coordination) Start: 09-13-2023 Telephone encounter Marianna Wagner 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 Phone: [facility] Comment on above: Patient Update Start: 09-10-2023 ambulatory Radha Bartholomew lm, RN AG Flatbed Driver Comment on above: Diarrhea Start: 09-10-2023 Home visit Radha Bartholomew lm, RN AG Flatbed Driver Comment on above: Primary Care Coordin ator- Other (Care Coordination) Start: 08-24-2023 ambulatory Radha MOORE Flatbed Driver Start: 08-24-2023 Home visit Radha Bartholomew lm, RN AG Flatbed Driver Comment on above: Primary Care Coordin ator- Other (Care Coordination) Start: 08-20-2023 Telephone encounter Marianna Wagner 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 Phone: [facility] Comment on above: Patient Question Start: 08-16-2023 Telephone encounter Marianna Wagner 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 Phone: [facility] Comment on above: Results Start: 08-11-2023 Telephone encounter Marianna Wagner 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 Phone: [facility] Comment on above: Results Start: 08-09-2023 End: 08-09-2023 ambulatory MARIANNA WAGNER [facility] Start: 08-09-2023 End: 08-09-2023 Patient encounter procedure Marianna Wagner 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 Phone: [facility] Comment on above: Type 2 diabetes kirk [...] Start: 08-09-2023 End: 08-09-2023 [facility]ulatory [facility] Start: 05-20-2023 TRACTOR CRANE OPERATOR-C Andreas Pathak TRACTOR CRANE OPERATOR Work Phone: [facility] Work Phone: Start: 05-19-2023 TRACTOR CRANE OPERATORAstrid Pathak TRACTOR CRANE OPERATOR Work Phone: [facility] Work Phone: Start: 05-18-2023 TRACTOR CRANE OPERATORAstrid Pathak TRACTOR CRANE OPERATOR Work Phone: [facility] Work Phone: Start: 05-17-2023 TRACTOR CRANE OPERATOR-C Andreas Pathak TRACTOR CRANE OPERATOR Work Phone: [facility] Work Phone: Start: 05-16-2023 TRACTOR CRANE OPERATOR-C Andreas Comal TRACTOR CRANE OPERATOR Work Phone: [facility] Work Phone: Start: 05-15-2023 TRACTOR CRANE OPERATOR-C Andreas Luxpkins TRACTOR CRANE OPERATOR Work Phone: [facility] Work Phone: Start: 05-14-2023 TRACTOR CRANE OPERATOR-C Andreas Pathak TRACTOR CRANE OPERATOR Work Phone: [facility] Work Phone: Start: 05-13-2023 TRACTOR CRANE OPERATOR-C Andreas Pathak TRACTOR CRANE OPERATOR Work Phone: [facility] Work Phone: Start: 05-13-2023 TRACTOR CRANE OPERATOR-C Andreas Pathak TRACTOR CRANE OPERATOR Work Phone: [facility] Start: 05-12-2023 TRACTOR CRANE OPERATOR-C Andreas Pathak TRACTOR CRANE OPERATOR Work Phone: [facility] Start: 05-12-2023 TRACTOR CRANE OPERATOR-C Andreas Pathak TRACTOR CRANE OPERATOR Work Phone: [facility] Work Phone: Start: 05-11-2023 TRACTOR CRANE OPERATOR-C Andreas Luxpkins TRACTOR CRANE OPERATOR Work Phone: [facility] Work Phone: Start: 05-10-2023 TRACTOR CRANE OPERATOR-C Andreas Luxpkins TRACTOR CRANE OPERATOR Work Phone: [facility] Start: 05-10-2023 TRACTOR CRANE OPERATOR-C Andreas Luxpkins TRACTOR CRANE OPERATOR Work Phone: [facility] Work Phone: Start: 05-09-2023 End: 05-20-2023 Evaluation and management of inpatient TRACTOR CRANE OPERATOR-C Andreas Pathak TRACTOR CRANE OPERATOR Work Phone: [facility] Work Phone: Start: 05-09-2023 End: 05-20-2023 TRACTOR CRANE OPERATOR-C Andreas Pathak TRACTOR CRANE OPERATOR Work Phone: [facility] Work Phone: Start: 04-27-2023 Non-patient / Non-visit TRACTOR CRANE OPERATOR-C R chuck Pathak TRACTOR CRANE OPERATOR Work Phone: [facility] Work Phone: Start: 04-27-2023 TRACTOR CRANE OPERATOR-C Andreas Pathak TRACTOR CRANE OPERATOR Work Phone: [facility] Work Phone: Start: 04-26-2023 Non-patient / Non-visit TRACTOR CRANE OPERATOR-C R chuck Pathak TRACTOR CRANE OPERATOR Work Phone: [facility] Work Phone: Start: 04-26-2023 TRACTOR CRANE OPERATOR-C Andreas Pathak TRACTOR CRANE OPERATOR Work Phone: [facility] Work Phone: Start: 04-25-2023 Non-patient / Non-visit TRACTOR CRANE OPERATOR-C R chuck Pathak TRACTOR CRANE OPERATOR Work Phone: [facility] Work Phone: Start: 04-25-2023 TRACTOR CRANE OPERATOR-C Andreas Pathak TRACTOR CRANE OPERATOR Work Phone: [facility] Work Phone: Start: 04-24-2023 Non-patient / Non-visit TRACTOR CRANE OPERATOR-C R chuck Pathak TRACTOR CRANE OPERATOR Work Phone: [facility] Work Phone: Start: 04-24-2023 TRACTOR CRANE OPERATOR-C Andreas Zo TRACTOR CRANE OPERATOR Work Phone: [facility] Work Phone: Start: 04-23-2023 Non-patient / Non-visit TRACTOR CRANE OPERATOR-C R chuck Luxpkins TRACTOR CRANE OPERATOR Work Phone: [facility] Work Phone: Start: 04-23-2023 TRACTOR CRANE OPERATOR-C Andreas Comal TRACTOR CRANE OPERATOR Work Phone: [facility] Work Phone: Start: 04-22-2023 Non-patient / Non-visit TRACTOR CRANE OPERATOR-C R chuck Pathak TRACTOR CRANE OPERATOR Work Phone: [facility] Work Phone: Start: 04-22-2023 TRACTOR CRANE OPERATOR-C Andreas Pathak TRACTOR CRANE OPERATOR Work Phone: [facility] Work Phone: Start: 04-21-2023 Non-patient / Non-visit TRACTOR CRANE OPERATOR-C R chuck Camargokins TRACTOR CRANE OPERATOR Work Phone: [facility] Work Phone: Start: 04-21-2023 TRACTOR CRANE OPERATOR-C Andreas Luxpkins TRACTOR CRANE OPERATOR Work Phone: [facility] Work Phone: Start: 04-20-2023 Evaluation and manag ement of inpatient TRACTOR CRANE OPERATOR-C Andreas Luxpkins TRACTOR CRANE OPERATOR Work Phone: [facility] Work Phone: Start: 04-20-2023 Non-patient / Non-visit TRACTOR CRANE OPERATOR-C R chuck Pathak TRACTOR CRANE OPERATOR Work Phone: [facility] Work Phone: Start: 04-20-2023 End: 04-27-2023 Evaluation and management of inpatient TRACTOR CRANE OPERATOR-C Andreas Pathak TRACTOR CRANE OPERATOR [facility] Work Phone: Start: 04-20-2023 End: 04-27-2023 TRACTOR CRANE OPERATOR-Stephen Pathak TRACTOR CRANE OPERATOR [facility] Work Phone: Start: 04-14-2023 End: 04-14-2023 Patient encounter procedure TRACTOR CRANE OPERATOR-Stephen Pathak TRACTOR CRANE OPERATOR Work Phone: [facility] Work Phone: Start: 04-14-2023 End: 04-14-2023 TRACTOR CRANE OPERATOR-Stephen Pathak TRACTOR CRANE OPERATOR Work Phone: [facility] Work Phone: Start: 04-01-2023 End: 04-06-2023 ambulatory 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 Facility:B Start: 03-15-2023 End: 03-19-2023 Evaluation and management of inpatient DR MARIELY WAGNER MD Facility:A Start: 03-15-2023 End: 03-16-2023 ambulatory 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 Facility:A Start: 03-15-2023 End: 03-19-2023 Evaluation and management of inpatient DR MARIELY WANGER MD [facility] Start: 03-15-2023 End: 03-15-[address] VANESSA GROSS MD [facility] Start: 03-01-2023 ambulatory ANDREAS TOWNSEND ALTERATION HAND - [employer]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 Facility:B Start: 02-22-2023 ambulatory ANDREAS TOWNSEND ALTERATION HAND - H[employer]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 Facility:[facility] Start: 02-22-2023 End: 03-22-2024 OTHER THERAPY 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 [facility] Start: 02-17-2023 End: 02-17-2023 Patient encounter procedure TRACTOR CRANE OPERATOR-C Andreas Pathak TRACTOR CRANE OPERATOR Work Phone: [facility] Work Phone: Start: 02-17-2023 End: 02-17-2023 TRACTOR CRANE OPERATOR-C Andreas Pathak TRACTOR CRANE OPERATOR Work Phone: [facility] Work Phone: Start: 01-13-2023 End: 01-13-2023 Patient encounter procedure TRACTOR CRANE OPERATOR-C Andreas Ptahak TRACTOR CRANE OPERATOR Work Phone: [facility] Work Phone: Start: 11-01-2022 End: 11-01-2022 [facility] Start: 10-15-2022 End: 10-16-2022 ambulatory 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 Facility:B Start: 10-15-2022 End: 10-15-2022 Patient encounter procedure 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 [facility] Start: 10-05-2022 End: 10-05-2022 Emergency department patient visit ANDREAS PAHTAK [employer]TERATION HAND - 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 Facility:B Start: 10-05-2022 End: 10-05-2022 Emergency department patient visit MAGDALEAN EDOUARDSANDRA RILEY [facility] Start: 09-22-2022 End: 09-23-2022 ambulatory 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 Facility:B Start: 07-20-2022 End: 07-21-2022 Emergency department patient visit [facility] Work Phone: Start: 07-02-2022 End: 07-07-2022 ambulatory 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 Facility:B Start: 07-02-2022 End: 07-06-2022 Outreach Lab 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 [facility] Start: 06-19-2022 End: 06-20-2022 ambulatory ANDREAS CAMARGOKINS ALTERATION HAND - H[employer]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 Facility:B Start: 06-19-2022 End: 06-19-2022 Patient encounter procedure 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 [facility] Start: 05-13-2022 End: 05-13-2022 Emergency department patient visit DR MERRICK SINGH DO Facility:[facility] Start: 05-13-2022 End: 05-13-2022 Emergency department patient visit DR MERRICK SINGH DO [facility] Start: 03-23-2022 Non-patient / Non-visit TRACTOR CRANE OPERATOR-C R chuck Pathak TRACTOR CRANE OPERATOR Work Phone: [facility] Start: 03-22-2022 Non-patient / Non-visit TRACTOR CRANE OPERATOR-C R chuck Pathak TRACTOR CRANE OPERATOR Work Phone: [facility] Start: 03-21-2022 Non-patient / Non-visit TRACTOR CRANE OPERATOR-C R chuck Pathak TRACTOR CRANE OPERATOR Work Phone: [facility] Start: 03-21-2022 End: 03-24-2022 Evaluation and management of inpatient TRACTOR CRANE OPERATOR-C Andreas Pathak TRACTOR CRANE OPERATOR [facility] Start: 02-04-2022 Non-patient / Non-visit TRACTOR CRANE OPERATOR-C R chuck Pathak TRACTOR CRANE OPERATOR Work Phone: [facility] Start: 02-03-2022 Non-patient / Non-visit TRACTOR CRANE OPERATOR-C R chuck Pathak TRACTOR CRANE OPERATOR Work Phone: [facility] Start: 02-02-2022 Non-patient / Non-visit TRACTOR CRANE OPERATOR-C R chuck Pathak TRACTOR CRANE OPERATOR Work Phone: [facility] Start: 02-01-2022 End: 02-04-2022 Evaluation and management of inpatient TRACTOR CRANE OPERATOR-C Andreas Pathak TRACTOR CRANE OPERATOR [facility] Start: 11-14-2021 Non-patient / Non-visit TRACTOR CRANE OPERATOR-C R chuck Pathak TRACTOR CRANE OPERATOR Work Phone: [facility] Start: 11-13-2021 Non-patient / Non-visit TRACTOR CRANE OPERATOR-C R chuck Pathak TRACTOR CRANE OPERATOR Work Phone: [facility] Start: 11-12-2021 Non-patient / Non-visit TRACTOR CRANE OPERATOR-C R chuck Pathak TRACTOR CRANE OPERATOR Work Phone: [facility] Start: 11-11-2021 End: 11-14-2021 Evaluation and management of inpatient TRACTOR CRANE OPERATOR-C Andreas Pathak TRACTOR CRANE OPERATOR [facility] Start: 11-08-2021 Non-patient / Non-visit TRACTOR CRANE OPERATOR-C R chuck Pathak TRACTOR CRANE OPERATOR Work Phone: [facility] Start: 11-07-2021 Non-patient / Non-visit TRACTOR CRANE OPERATOR-C R chuck Pathak TRACTOR CRANE OPERATOR Work Phone: [facility] Start: 11-06-2021 Non-patient / Non-visit TRACTOR CRANE OPERATOR-C R chuck Pathak TRACTOR CRANE OPERATOR Work Phone: [facility] Start: 11-05-2021 End: 11-08-2021 Evaluation and management of inpatient TRACTOR CRANE OPERATOR-C Andreas Pathak TRACTOR CRANE OPERATOR Work Phone: [facility] Start: 11-05-2021 Non-patient / Non-visit TRACTOR CRANE OPERATOR-C R chuck Pathak TRACTOR CRANE OPERATOR Work Phone: [facility] Start: 10-06-2021 End: 10-06-2021 Emergency department patient visit TRACTOR CRANE OPERATOR-C Andreas Pathak TRACTOR CRANE OPERATOR Work Phone: [facility] Start: 09-30-2021 End: 09-30-2021 Emergency department patient visit TRACTOR CRANE OPERATOR-C Andreas Pathak TRACTOR CRANE OPERATOR Work Phone: [facility] Start: 08-15-2021 End: 08-15-2021 Patient encounter procedure TRACTOR CRANE OPERATOR-C Andreas Pathak TRACTOR CRANE OPERATOR Work Phone: [facility] Start: 08-14-2021 End: 08-15-2021 Non-patient / Non-visit TRACTOR CRANE OPERATOR-C Andreas Pathak TRACTOR CRANE OPERATOR Work Phone: [facility] Start: 08-06-2021 End: 08-06-2021 Patient encounter procedure 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 [facility] Start: 05-31-2021 Non-patient / Non-visit TRACTOR CRANE OPERATOR-C Harry Pathak TRACTOR CRANE OPERATOR Work Phone: [facility] Start: 05-30-2021 Non-patient / Non-visit TRACTOR CRANE OPERATOR-C Harry Pathak TRACTOR CRANE OPERATOR Work Phone: [facility] Start: 05-29-2021 Non-patient / Non-visit TRACTOR CRANE OPERATOR-C Harry Pathak TRACTOR CRANE OPERATOR Work Phone: [facility] Start: 05-29-2021 End: 06-01-2021 Evaluation and management of inpatient TRACTOR CRANE OPERATOR-C Andreas Pathak TRACTOR CRANE OPERATOR Work Phone: [facility] Start: 05-21-2021 End: 05-22-2021 Emergency department patient visit TRACTOR CRANE OPERATOR-C Andreas Pathak TRACTOR CRANE OPERATOR Work Phone: [facility] Start: 05-05-2021 Non-patient / Non-visit TRACTOR CRANE OPERATOR-C Harry Pathak TRACTOR CRANE OPERATOR Work Phone: [facility] Start: 05-05-2021 Non-patient / Non-visit TRACTOR CRANE OPERATOR-C Harry Pathak TRACTOR CRANE OPERATOR Work Phone: [facility] Start: 05-05-2021 Non-patient / Non-visit TRACTOR CRANE OPERATOR-C Harry Pathak TRACTOR CRANE OPERATOR Work Phone: [facility] Start: 05-04-2021 End: 05-05-2021 Evaluation and management of inpatient [facility] Start: 05-02-2021 End: 05-02-2021 Emergency department patient visit DR SHILPI BURNS MD [facility] Start: 04-09-2021 End: 04-09-2021 Patient encounter procedure 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 [facility] Start: 08-25-2018 Notes/Results Only Other Other NOTE S/RESULTS Start: 08-25-2018 End: 08-25-2018 Patient encounter procedure Other Other [facility] Start: 07-15-2018 Patient encounter procedure LYSSA MONTERROSO Facility:[facility] Start: 04-08-2018 Patient encounter procedure LYSSA MONTERROSO Facility:[facility] Start: 01-14-2018 End: 01-15-2018 Patient encounter procedure LYSSA MONTERROSO Facility:[facility] Start: 11-09-2017 End: 11-09-2017 Emergency department patient visit BANDAR DAIGLE [facility] Start: 11-01-2017 Patient encounter procedure UMAIR LARKIN Facility:[facility] Start: 07-01-2017 Patient encounter procedure LYSSA MONTERROSO Facility:[facility] Start: 04-29-2017 End: 04-29-2017 Patient encounter procedure UMAIR LARKIN Facility:[facility] Start: 03-16-2016 End: 03-20-2016 Patient encounter status Marianna Wagner 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 Address: [address] [place] [address] Performed By: #### T SCR ####CC MAIN BLOOD BANKCLIA [id number] [address] Start: 10-19-2024 Echocardiography VANDANA EDWARDS Start: 10-18-2024 Antibody screen VANDANA EDWARDS Comment on above: Order Comment: Specimen Type: BLOOD SPEC IMENOrdering Facility: [facility] Address: [address] [place] [address] Performed By: #### T SCR ####CC MAIN BLOOD BANKCLIA [id number] [address] Start: 10-17-2024 H/O: artificial heart valve History of heart valve replacement with bioprosthetic valve Talia Serrano APRN.HIGH SCHO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 Phone: Start: 10-12-2024 Computed tomography of abdomen and pelvis with intravenous contrast Dr. Rolan Romero DO Work Phone: Start: 10-12-2024 X-ray of chest, PA and lateral views Dr. Rolan Romero DO Work Phone: Start: 10-12-2024 Blood count smear mcrscp w/mnl difrntl wbc count Dr. Rolan Romero DO Work Phone: Start: 10-12-2024 Calculation of international normalized ratio Dr. Rolan Romero DO Work Phone: Start: 10-12-[address] Rolan Romero DO Work Phone: Start: 10-12-2024 Mean corpuscular hemoglobin concentration determination Dr. Rolan Romero DO Work Phone: Start: 10-12-2024 Nucleated red blood cell count procedure Dr. Rolan Romero DO Work Phone: Start: 10-12-2024 Platelet mean volume determination Dr. Rolan Romero DO Work Phone: Start: 10-06-2024 Blood count smear mcrscp w/mnl difrntl wbc count Dr. Rolan Romero DO Work Phone: Start: 10-06-2024 Calculation of international normalized ratio Dr. Rolan Romero DO Work Phone: Start: 10-06-[address] Rolan Romero DO Work Phone: Start: 10-06-2024 Mean corpuscular hemoglobin concentration determination Dr. Rolan Romero DO Work Phone: Start: 10-06-2024 Nucleated red blood cell count procedure Dr. Rolan Romero DO Work Phone: Start: 10-06-2024 Platelet mean volume determination Dr. Rolan Romero DO Work Phone: Start: 10-06-2024 X-ray of chest, PA and lateral views Dr. Rolan Romero DO Work Phone: Start: 09-04-[address] Rolan Romero DO Work Phone: Start: 09-04-2024 Blood count smear mcrscp w/mnl difrntl wbc count Dr. Rolan Romero DO Work Phone: Start: 09-04-[address] Rolan Romero DO Work Phone: Start: 09-04-2024 Mean corpuscular hemoglobin concentration determination Dr. Rolan Romero DO Work Phone: Start: 09-04-2024 Nucleated red blood cell count procedure Dr. Rolan Romero DO Work Phone: Start: 09-04-2024 Platelet mean volume determination Dr. Rolan Romero DO Work Phone: Start: 09-02-2024 Plain chest X-ray Dr. Rolan Romero DO Work Phone: Start: 09-01-[address] Rolan Romero DO Work Phone: Start: 09-01-[address] Rolan Romero DO Work Phone: Start: 09-01-2024 Microbial culture, body fluid Dr. Rolan Romero DO Work Phone: Start: 09-01-2024 Calculation of international normalized ratio Dr. Rolan Romero DO Work Phone: Start: 09-01-2024 Blood count leukocyte wbc automated Dr. Rolan Romero DO Work Phone: Start: 09-01-[address] Rolan Romero DO Work Phone: Start: 09-01-[address] Tray Romero DO Work Phone: Start: 09-01-2024 Plain chest X-ray Dr. Rolan Romero DO Work Phone: Start: 09-01-2024 Ultrasonic guidance for thoracentesis Dr. Rolan Romero DO Work Phone: Start: 09-01-[address] Rolan Romero DO Work Phone: Start: 08-31-2024 Lymphocyte percent differential count Dr. Rolan Romero DO Work Phone: Start: 08-30-2024 Plain chest X-ray Dr. Rolan Romero DO Work Phone: Start: 08-30-2024 Glucose measurement, body fluid Dr. Praneeth Romero DO Work Phone: Start: 08-30-2024 Fibrinogen assay, quantitative Dr. Rolan Romero DO Work Phone: Start: 08-30-2024 Ultrasonic guidance for thoracentesis Dr. Rolan Romero DO Work Phone: Start: 08-30-2024 X-ray of chest, PA and lateral views Dr. Rolan Romero DO Work Phone: Start: 08-30-[address] Rolan Romero DO Work Phone: Start: 08-28-2024 D-dimer assay, quantitative Dr. Rolan [...] Start: 08-28-2024 Platelet mean volume determination Dr. Rolan Romero DO Work Phone: Start: 08-03-2024 Blood count smear mcrscp w/mnl difrntl wbc count No Primary Care Physician Start: 08-03-2024 Estimated creatinine clearance No Primar y Care Physician Start: 08-03-2024 Mean corpuscular hemoglobin concentration determination No Primary Care Physician Start: 08-03-2024 Nucleated red blood cell count procedure No Primary Care Physician Start: 08-03-2024 Platelet mean volume determination No Primary Care Physician Start: 08-02-2024 Assay of triglycerides [...] Start: 08-01-2024 Platelet mean volume determination No Primary Care Physician Start: 08-01-2024 Serum inorganic phosphate measurement No Primary Care Physician Start: 08-01-2024 Triacylglycerol lipase measurement No Primary Care Physician Start: 07-13-2024 Blood count smear mcrscp w/mnl difrntl wbc count No Primary Care Physician Start: 07-13-2024 Estimated creatinine clearance No Primar y Care Physician Start: 07-13-2024 Mean corpuscular hemoglobin concentration determination No Primary Care Physician Start: 07-13-2024 Nucleated red blood cell count procedure No Primary Care Physician Start: 07-13-2024 Platelet mean volume determination No Primary Care Physician Start: 07-13-2024 Serum inorganic phosphate [...] Start: 07-11-2024 Platelet mean volume determination No Primary Care Physician Start: 07-11-2024 Triacylglycerol lipase measurement No Primary Care Physician Start: 07-11-2024 Benzodiazepine measurement, urine [...] Start: 07-06-2024 Estimated creatinine clearance No Primar y Care Physician Start: 07-06-2024 Mean corpuscular hemoglobin concentration determination No Primary Care Physician Start: 07-06-2024 Platelet mean volume determination No Primary Care Physician Start: 07-04-2024 Albumin/Globulin ratio No Primary Care Physician Start: 07-04-2024 Antibody measurement No Primary Care Physician Start: 07-04-2024 Antibody to centromere measurement No Primary Care Physician Start: 07-04-2024 Antibody to extractable [...] Start: 07-04-2024 Gliadin antibody, IgA measurement No [facility] Care Physician Start: 07-04-2024 Gliadin antibody, IgG measurement No [facility] Care Physician Start: 07-04-2024 Immunoglobulin M measurement No Primary Care Physician Start: 07-04-2024 In-vitro immunologic test No Primary Car e Physician Start: 07-04-2024 RE RECORDING MIXER antibody measurement No Primary Care Physician Start: [...] Urine microscopy: red cells No Primary C [facility] Physician Start: 06-30-2024 Urnls dip stick/tablet reagent auto microscopy No Primary Care Physician Start: 06-30-2024 Computed tomography of abdomen and pelvis with intravenous contrast No Primary Care Physician Start: 06-30-2024 Assay of lactate No Primary Care Physician Start: 06-30-2024 Triacylglycerol lipase measurement No Primary Care Physician Start: 06-28-2024 Blood count smear mcrscp w/mnl difrntl wbc count No Primary Care Physician Start: 06-28-2024 Estimated creatinine clearance No Primar Care Physician Start: 06-28-2024 Mean corpuscular hemoglobin concentration determination No Primary Care Physician Start: 06-28-2024 Nucleated red blood cell count procedure No Primary Care Physician Start: 06-28-2024 Platelet mean volume determination No Primary Care Physician Start: 06-27-2024 Esophagogastroduodenoscopy No Primary [facility] Physician Start: 06-27-2024 Calculation of international normalized [...] Physician Start: 06-25-2024 Triacylglycerol lipase measurement No Primary Care Physician Start: 06-25-2024 Computed tomography of [...] dx w/collj spec when pfrmd Susana Ramirez 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 Phone: Start: 04-05-2024 Esophagogastroduodenoscopy transoral diagnostic Susana Ramirez 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 Phone: Start: 04-05-2024 Gluc bld gluc mntr dev cleared fda spec home use Lucas De La Garzaalfonzo [employer].LITHOGRAPHIC RETOUCHER APPRENTICE Work Phone: Start: 04-05-2024 PACER OR ICD CHECK ([place]) Phoebe pitts MD Work Phone: Start: 04-05-2024 Colonoscopy Phoebe Vazquez MD Work Phone: Start: 10-21-2023 Ct abdomen & pelvis w/o contrast material Marianna Wagner 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 Phone: Start: 08-09-2023 Culture bacterial quanttative colony count urine Marianna Tayla Gomezden 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 Phone: Start: 08-09-2023 Urnls dip stick/tablet rgnt auto w/o microscopy Marianna Tayla Gomezden 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 Phone: Start: 05-16-2023 Measurement of occult blood in stool specimen using immunoassay TRACTOR CRANE OPERATOR-C Andreas Pathak TRACTOR CRANE OPERATOR Work Phone: Start: 05-11-2023 US urinary tract TRACTOR CRANE OPERATOR-C Andreas Pathak TRACTOR CRANE OPERATOR Work Phone: Start: 05-10-2023 Urine culture TRACTOR CRANE OPERATOR-C Andreas Pathak TRACTOR CRANE OPERATOR Work Phone: Start: 05-10-2023 TRACTOR CRANE OPERATOR-C Andreas Pathak TRACTOR CRANE OPERATOR Work Phone: Start: 05-09-2023 Computed tomography of abdomen and pelvis with intravenous contrast TRACTOR CRANE OPERATOR-C Andreas Pathak TRACTOR CRANE OPERATOR Work Phone: Start: 05-09-2023 Plain chest X-ray TRACTOR CRANE OPERATOR-C Andreas Pathak TRACTOR CRANE OPERATOR Work Phone: Start: 04-23-2023 CT of head without contrast TRACTOR CRANE OPERATOR-C Andreas Pathak TRACTOR CRANE OPERATOR Work Phone: Start: 04-20-2023 Computed tomography of abdomen and pelvis with intravenous contrast TRACTOR CRANE OPERATOR-C Andreas Pathak TRACTOR CRANE OPERATOR Work Phone: Start: 02-01-2022 Plain chest X-ray TRACTOR CRANE OPERATOR-C Andreas Pathak TRACTOR CRANE OPERATOR Work Phone: Start: 09-30-2021 Plain chest X-ray TRACTOR CRANE OPERATOR-C Andreas Pathak TRACTOR CRANE OPERATOR Work Phone: Start: 05-30-2021 Ultrasonography of abdomen TRACTOR CRANE OPERATOR-C Andreas Pathak TRACTOR CRANE OPERATOR Work Phone: Start: 05-21-2021 End: 05-21-2021 Viral antigen assay TRACTOR CRANE OPERATOR-C Andreas Pathak TRACTOR CRANE OPERATOR Work Phone: Start: 05-05-2021 Cardiovascular stress test using pharmacologic stress agent TRACTOR CRANE OPERATOR-C Andreas Pathak TRACTOR CRANE OPERATOR Work Phone: Start: 05-04-2021 Plain chest X-ray Start: 11-09-2017 Urinalysis BANDAR DAIGLE Comment on above: Result Comment: URINALYSIS Performed By: #### 2 [id number] ####[facility],[address] [place] [address] Start: 11-09-2017 Microscopic examination of blood, culture BANDAR DAIGLE Comment on above: Performed By: #### [id number] ####[place] [address] Pacemaker catheter, device (physical object) 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 Repair of thoracic a ortic aneurysm ANDREAS LUXPKINS 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 Replacement of aortic valve ANDREAS LUXPKINS [employer] - HIGH [employer]CHO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 Plan of Treatment Date Care Activity Detail Author Start: 08-08-2028 Prostate specific antigen measurement Prostate Cancer Screening Discussion [facility] Start: 10-23-2025 Creatinine measurement Serum Creatinine [facility] Start: 10-20-2025 Complete blood count Hemoglobin/Hematocrit [facility] Start: 10-20-2025 Creatinine measurement Serum Creatinine [facility] Start: 04-12-2025 Complete blood count Hemoglobin/Hematocrit [facility] Start: 04-05-2025 Screening for malignant neoplasm of colon [facility] Start: 01-17-2025 Hemoglobin A1c measurement HbA1C [facility] Start: 12-26-2024 Annual PCP Team Chronic Disease Visit Annual PCP Team Chronic Disease Visit [facility] Start: 12-26-2024 BP Controlled (<130/80) BP Controlled (<130/80) [facility] Start: 10-20-2024 End: 10-20-2024 Cath plmt l hrt & arts w/njx & angio img s&i CORONARY ANGIO W CATH PLACE W IMAGE INJECT & INTERP W LT HEART CATH W INJECT LT VENTRGRAPHY VHD (valvular heart disease) 10/20/2024 4:45 AM EDT 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 Start: 10-14-2024 Complete blood count Hemoglobin/Hematocrit [facility] Start: 10-14-2024 Creatinine measurement Serum Creatinine [facility] Start: 10-14-2024 Hepatitis B screening Urine Albumin:Creatinine Ratio [facility] Start: 10-13-2024 Annual PCP Team Chronic Disease Visit Annual PCP Team Chronic Disease Visit [facility] Start: 10-13-2024 BP Controlled (<130/80) BP Controlled (<130/80) [facility] Start: 10-13-2024 Screening for malignant neoplasm of colon [facility] Start: 10-12-2024 Verification routine [facility] Start: 10-12-2024 Admission procedure [facility] Start: 10-12-2024 Hospital admission, emergency, from emergency room, medical nature [facility] Start: 10-12-2024 [facility] Start: 10-09-2024 Influenza vaccination [facility] Start: 10-06-2024 [facility] Start: 09-24-2024 Creatinine measurement Serum Creatinine [facility] Start: 09-11-2024 Hemoglobin A1c measurement HbA1C [facility] Start: 09-04-2024 Patient discharge [facility] Start: 09-04-2024 Vital signs measurements [facility] Start: 09-04-2024 Dietary regime [facility] Start: 09-04-2024 [facility] Start: 09-03-2024 Referral to occupational therapist [facility] Start: 09-03-2024 Referral to service [facility] Start: 09-02-2024 Inhalation therapy procedure [facility] Start: 09-01-2024 Vital signs measurements [facility] Start: 08-31-2024 Referral to gastroenterology service [facility] Start: 08-31-2024 Consultation [facility] Start: 08-30-2024 Vital signs measurements [facility] Start: 08-30-2024 [facility] Start: 08-29-2024 End: 08-29-2024 [facility] Start: 08-29-2024 Care regimes management [facility] Start: 08-29-2024 Notification of physician [facility] Start: 08-29-2024 [facility] Start: 08-29-2024 Following clinical pathway protocol [facility] Start: 08-29-2024 Ambulation without limitation [facility] Start: 08-29-2024 Assessment of risk of venous thromboembolism [facility] Start: 08-29-2024 Insertion of catheter into peripheral vein [facility] Start: 08-29-2024 Oxygen therapy [facility] Start: 08-29-2024 Providing care according to standard [facility] Start: 08-29-2024 [facility] Start: 08-29-2024 Verification routine [facility] Start: 08-29-2024 Admission procedure [facility] Start: 08-29-2024 Consultation [facility] Start: 08-29-2024 Patient referral to dietitian [facility] Start: 08-28-2024 Hospital admission, emergency, from emergency room, medical nature [facility] Start: 08-28-2024 [facility] Start: 08-28-2024 [facility] Start: 08-08-2024 Annual PCP Team Chronic Disease Visit Annual PCP Team Chronic Disease Visit [facility] Start: 08-08-2024 BP Controlled (<130/80) BP Controlled (<130/80) [facility] Start: 08-08-2024 Complete blood count Hemoglobin/Hematocrit [facility] Start: 08-08-2024 Creatinine measurement Serum Creatinine [facility] Start: 08-08-2024 Hepatitis B surface antibody level LDL Cholesterol [facility] Start: 08-03-2024 Patient discharge [facility] Start: 08-02-2024 [facility] Start: 08-02-2024 Referral to vascular surgeon [facility] Start: 08-01-2024 Following clinical pathway protocol [facility] Start: 08-01-2024 Application of elastic bandage [facility] Start: 08-01-2024 Assessment of risk of venous thromboembolism [facility] Start: 08-01-2024 Care regimes management [facility] Start: 08-01-2024 Elevation of affected extremity [facility] Start: 08-01-2024 Fall prevention [facility] Start: 08-01-2024 Inhalation therapy procedure [facility] Start: 08-01-2024 Insertion of catheter into peripheral vein [facility] Start: 08-01-2024 Introduction of urinary catheter [facility] Start: 08-01-2024 Measuring intake and output [facility] Start: 08-01-2024 Notification of physician [facility] Start: 08-01-2024 Oxygen therapy [facility] Start: 08-01-2024 Patient education [facility] Start: 08-01-2024 Patient referral to dietitian [facility] Start: 08-01-2024 Providing care according to standard [facility] Start: 08-01-2024 Provision of activity privileges [facility] Start: 08-01-2024 Referral to occupational therapist [facility] Start: 08-01-2024 Referral to service [facility] Start: 08-01-2024 Tobacco use cessation education [facility] Start: 08-01-2024 End: 08-01-2024 [facility] Start: 08-01-2024 Hospital admission, emergency, from emergency room, medical nature [facility] Start: 08-01-2024 Verification routine [facility] Start: 08-01-2024 Admission procedure [facility] Start: 08-01-2024 Consultation [facility] Start: 08-01-2024 Patient referral to dietitian [facility] Start: 08-01-2024 [facility] Start: 07-14-2024 Patient discharge [facility] Start: 07-13-2024 [facility] Start: 07-13-2024 Referral to service [facility] Start: 07-13-2024 End: 07-13-2024 ambulatory [facility] Comment on above: LABS 3MO OV/EARLY LABS* Start: 07-13-2024 Following clinical pathway protocol [facility] Start: 07-12-2024 [facility] Start: 07-12-2024 Referral to service [facility] Start: 07-11-2024 Ambulation without limitation [facility] Start: 07-11-2024 Assessment of risk of venous thromboembolism [facility] Start: 07-11-2024 Care regimes management [facility] Start: 07-11-2024 Inhalation therapy procedure [facility] Start: 07-11-2024 Insertion of catheter into peripheral vein [facility] Start: 07-11-2024 Measuring intake and output [facility] Start: 07-11-2024 Notification of physician [facility] Start: 07-11-2024 Patient referral to dietitian [facility] Start: 07-11-2024 Providing care according to standard [facility] Start: 07-11-2024 Referral to general surgeon [facility] Start: 07-11-2024 Referral to service [facility] Start: 07-11-2024 End: 07-11-2024 [facility] Start: 07-11-2024 Following clinical pathway protocol [facility] Start: 07-11-2024 Verification routine [facility] Start: 07-11-2024 Admission procedure [facility] Start: 07-11-2024 Hospital admission, emergency, from emergency room, medical nature [facility] Start: 07-11-2024 [facility] Start: 07-11-2024 Patient referral to [facility] Start: 07-06-2024 Patient discharge [facility] Start: 07-03-2024 Referral to workers compensation analyst [facility] Start: 07-03-2024 In-vitro immunologic test [facility] Start: 07-03-2024 Laboratory test [facility] Start: 07-03-2024 Serum immunofixation [facility] Start: 07-03-2024 [facility] Start: 07-03-2024 Inhalation therapy procedure [facility] Start: 07-02-2024 Referral to gastroenterology service [facility] Start: 07-01-2024 [facility] Start: 07-01-2024 Application of intermittent pneumatic compression device [facility] Start: 07-01-2024 Physiotherapy of chest [facility] Start: 06-30-2024 Following clinical pathway protocol [facility] Start: 06-30-2024 Aspiration precautions [facility] Start: 06-30-2024 Assessment of risk of venous thromboembolism [facility] Start: 06-30-2024 Care regimes management [facility] Start: 06-30-2024 Catheterization of vein [facility] Start: 06-30-2024 Insertion of catheter into peripheral vein [facility] Start: 06-30-2024 Measuring intake and output [facility] Start: 06-30-2024 Notification of physician [facility] Start: 06-30-2024 Oxygen therapy [facility] Start: 06-30-2024 Providing care according to standard [facility] Start: 06-30-2024 Provision of activity privileges [facility] Start: 06-30-2024 Referral to service [facility] Start: 06-30-2024 End: 06-30-2024 [facility] Start: 06-30-2024 Admission procedure [facility] Start: 06-30-2024 Patient referral to dietitian [facility] Start: 06-30-2024 [facility] Start: 06-28-2024 Patient discharge [facility] Start: 06-27-2024 [facility] Start: 06-26-2024 Application of intermittent pneumatic compression device [facility] Start: 06-26-2024 Following clinical pathway protocol [facility] Start: 06-26-2024 End: 06-26-2024 Microbial culture, body fluid [facility] Start: 06-26-2024 Anaerobic Culture Anaerobic Culture [facility] Start: 06-26-2024 Referral to service [facility] Start: 06-26-2024 Following clinical pathway protocol [facility] Start: 06-26-2024 Aspiration precautions [facility] Start: 06-26-2024 Assessment of risk of venous thromboembolism [facility] Start: 06-26-2024 Care regimes management [facility] Start: 06-26-2024 Documentation procedure [facility] Start: 06-26-2024 Inhalation therapy procedure [facility] Start: 06-26-2024 Insertion of catheter into peripheral vein [facility] Start: 06-26-2024 Measuring intake and output [facility] Start: 06-26-2024 Notification of physician [facility] Start: 06-26-2024 Oxygen therapy [facility] Start: 06-26-2024 Providing care according to standard [facility] Start: 06-26-2024 Provision of activity privileges [facility] Start: 06-26-2024 Referral to gastroenterology service [facility] Start: 06-26-2024 Referral to service [facility] Start: 06-26-2024 Seizure precautions [facility] Start: 06-26-2024 Tobacco use cessation education [facility] Start: 06-26-2024 End: 06-26-2024 [facility] Start: 06-26-2024 Care of central venous catheter [facility] Start: 06-26-2024 Following clinical pathway protocol [facility] Start: 06-26-2024 Patient referral to dietitian [facility] Start: 06-25-2024 Centesis [facility] Start: 06-25-2024 Verification routine [facility] Start: 06-25-2024 Admission procedure [facility] Start: 06-25-2024 Hospital admission, emergency, from emergency room, medical nature [facility] Start: 06-25-2024 Clostridioides difficile (PCR) Clostridioides difficile (PCR) [facility] Start: 06-25-2024 Enteric Bacteriology Enteric Bacteriology [facility] Start: 06-25-2024 Ova and Parasites Ova and Parasites [facility] Start: 06-25-2024 Stool Lactoferrin Stool Lactoferrin [facility] Start: 04-12-2024 End: 04-12-2024 ambulatory [facility] Comment on above: LABS* LABS EARLY/OV/EGD & COLONOSCOPY 04/05* Start: 04-05-2024 End: 04-05-2024 Patient encounter procedure [facility] Comment on above: Colon EGD- PLEASE DO NOT CANCEL THIS PAT IENT Start: 03-29-2024 End: 03-29-2024 ambulatory [facility] Comment on above: LABS* LABS EARLY / OV/EGD & COLONOSCOPY 03/16* Start: 03-16-2024 End: 02-06-2025 Patient encounter procedure 03/16/2024 11:00 AM EST Appointment [facility] [address] [place] [address] Phoebe Vazquez MD [address] [place] [id number] Anemia, unspecified type [D64.9]; Weight loss [R63.4 [facility] Comment on above: Anemia, unspecified type [D64.9]; Weight loss [R63.4 Start: 03-08-2024 End: 06-07-2024 Hemoglobin A1c in Blood HEMOGLOBIN A1C Lab Routine Type 2 diabetes mellitus with complication, with long-term current use of insulin (HCC) Expected: 03/08/2024, Expires: 06/07/2024 [facility] Work Phone: Comment on above: Expected: 03/08/2024, Expires: Start: 02-28-2024 End: 02-28-2024 Patient encounter procedure 02/28/2024 10:20 AM EST Office Visit [facility] [address] [place] [address] Marianna Wagner, [employer] [address] [place] [address] follow up diabetes [facility] Comment on above: follow up diabetes Start: 02-09-2024 Hemoglobin A1c measurement HbA1C [facility] Start: 01-17-2024 End: 04-17-2024 CBC W Auto Differential panel - Blood COMPLETE BLOOD COUNT AND DIFFERENTIAL Lab STAT Anemia, unspecified type Expected: 01/17/2024, Expires: 04/17/2024 [facility] Work Phone: Comment on above: Expected: 01/17/2024, Expires: Start: 01-14-2024 End: 01-14-2024 [facility]ulatory [facility] Comment on above: LABS? 2MO OV/LABS EARLY* Start: 01-07-2024 End: 01-07-2024 Patient encounter procedure 01/07/2024 10:00 AM EST Appointment Ambulatory Surgery [address] [place] [id number] Amy Kohli MD [address] [facility] [place] [id number] Anemia, unspecified type [D64.9]; Weight loss [R63.4] Ambulatory Surgery Comment on above: Anemia, unspecified type [D64.9]; Weight loss [R63.4] Start: 12-31-2023 End: 12-31-2023 Anesthesia consultation 12/31/2023 11:59 PM EST Anesthesia Event Ambulatory Surgery [address] [facility] [place] [address] Sabra Desouza APRN.LITHOGRAPHIC RETOUCHER APPRENTICE [id number] [place], [place] [phone] Ambulatory Surgery Start: 12-27-2023 End: 12-27-2023 Patient encounter procedure 12/27/2023 2:00 PM EST Office Visit [facility] [address], [place] [phone] Marianna Wagner 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 [address], [place] [phone] 3 MTH F/U DM [facility] Comment on above: 3 MTH F/U DM Start: 12-24-2023 End: 12-24-2023 Patient encounter procedure 12/24/2023 11:20 AM EST Office Visit [facility] [address] [facility] [place] [address] Susana Ramirez APRN.HIGH SCHO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 [address] [facility] [place] [phone] referred by pcp for anemia, currently being treated for e-coli and cdiff [facility] Comment on above: referred by pcp for [...] PM EDT Appointment Cat Scan [address] [facility] [place] [address] Diarrhea, unspecified type [R19.7] Cat Scan Comment on above: Diarrhea, unspecified type [R19.7] Start: 11-15-2023 End: 11-15-2023 ambulatory 11/15/2023 10:30 AM EDT Visit (SP) Office Hematology/Oncology [address] [facility], [place] [phone] Vandana Edwards [address] [place] [facility] [address] TRACTOR CRANE OPERATOR/ANEMIA/REF MARIANNA WAGNER* resched 10/24, 11/07 this date and time per patient Hematology/Oncology Comment on above: TRACTOR CRANE OPERATOR/ANEMIA/REF MARIANNA WAGNER* resched , 11/07 this date and time per patient Start: 11-09-2023 End: 11-09-2023 Patient encounter procedure 11/09/2023 1:20 PM EDT Office Visit [facility] [address] [place] [address] Marianna Wagner, 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 [address], [place] [phone] 3 MTH F/U DM [facility] Comment on above: 3 MTH F/U DM Start: 11-08-2023 End: 10-20-2024 CT Pancreas W contrast IV CT PANCREAS W IVCON Radiology Routine Diarrhea, unspecified type Acute pancreatitis, unspecified complication status, unspecified pancreatitis type Expected: 11/08/2023, Expires: 10/20/2024 [facility] Work Phone: Comment on above: Expected: 11/08/2023, Expires: Start: 11-08-2023 End: 11-08-2023 ambulatory 11/08/2023 10:30 AM EDT Visit (SP) Office Hematology/Oncology [address] [place], [place] [phone] Vandana Edwards [address] [place] [address] TRACTOR CRANE OPERATOR/ANEMIA/REF MARIANNA QUEDEVYN* resched 10/24 this date and time per patient Hematology/Oncology Comment on above: TRACTOR CRANE OPERATOR/ANEMIA/REF MARIANNA QUEDEN* resched this date and time per patient Start: 11-02-2023 End: 11-02-2023 Patient encounter procedure 11/02/2023 3:05 PM EDT Office Visit [facility] [address] [facility] [place] [id number] Susana Ramirez, 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 [address] [facility] [place], [place] [phone] referred by pcp for anemia, currently being treated for e-coli and cdiff [facility] Comment on above: referred by pcp for anemia, currently be ing treated for e-coli and cdiff Start: 10-25-2023 End: 10-25-2023 ambulatory 10/25/2023 10:30 AM EDT Visit (SP) Office Hematology/Oncology [address] [place] [address] Vandana Edwards [address] [place], [place] [phone] TRACTOR CRANE OPERATOR/ANEMIA/REF MARIANNAMANDY WAGNER* Hematology/Oncology Comment on above: TRACTOR CRANE OPERATOR/ANEMIA/REF MARIANNA QUEDEN* Start: 10-21-2023 End: 10-21-2023 Patient encounter procedure 10/21/2023 2:20 PM EDT Appointment Cat Scan [address] [place] [address] CCN was accepted, Cat Scan Comment on above: CCN was accepted, Start: 10-14-2023 End: 10-14-2023 Patient encounter procedure 10/14/2023 11:20 AM EDT Office Visit [facility] [address] [place] [address] Marianna Wagner, 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 [address] [place] [address] Follow up blood work results [facility] Comment on above: Follow up blood work results Start: 10-10-2023 Covid-19 Vaccine ( season) Covid-19 Vaccine ( season) [facility] Start: 10-10-2023 Covid-19 Vaccine ( season) Covid-19 Vaccine () [facility] Start: 10-10-2023 Influenza vaccination Influenza Vaccine (#1) [facility] Start: 10-07-2023 End: 01-06-2024 CBC W Auto Differential panel - Blood COMPLETE BLOOD COUNT AND DIFFERENTIAL Lab Routine Anemia, unspecified type Expected: 10/07/2023, Expires: 01/06/2024 [facility] Comment on above: Expected: 10/07/2023, Expires: Start: 10-07-2023 End: 10-06-2024 Cobalamin (Vitamin B12) [Mass/volume] in Serum or Plasma VITAMIN B12 Lab Routine Anemia, unspecified type Expected: 10/07/2023, Expires: 10/06/2024 [facility] Comment on above: Expected: 10/07/2023, Expires: 5 Start: 10-07-2023 End: 01-06-2024 Comprehensive metabolic 2000 panel - Serum or Plasma COMPREHENSIVE METABOLIC PANEL Lab Routine Chronic diarrhea Expected: 10/07/2023, Expires: 01/06/2024 [facility] Comment on above: Expected: 10/07/2023, Expires: 4 Start: 10-07-2023 End: 10-06-2024 Ferritin [Mass/volume] in Serum or Plasma FERRITIN Lab Routine Anemia, unspecified type Expected: 10/07/2023, Expires: 10/06/2024 [facility] Comment on above: Expected: 10/07/2023, Expires: Start: 10-07-2023 End: 10-06-2024 Folate [Mass/volume] in Serum or Plasma FOLATE, SERUM Lab Routine Anemia, unspecified type Expected: 10/07/2023, Expires: 10/06/2024 [facility] Comment on above: Expected: 10/07/2023, Expires: Start: 10-07-2023 End: 10-06-2024 Iron and Iron binding capacity panel - Serum or Plasma IRON AND TIBC Lab Routine Anemia, unspecified type Expected: 10/07/2023, Expires: 10/06/2024 [facility] Work Phone: Comment on above: Expected: 10/07/2023, Expires: Start: 09-24-2023 End: 09-24-2023 Patient encounter procedure 09/24/2023 3:05 PM EDT Office Visit [facility] [address] [facility] [place] [address] Susana Ramirez APRN.HIGH SCHO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 [address] [facility] [place] [address] referred by pcp for diarrhea(recent tests at [place]) [facility] Comment on above: referred by pcp for diarrhea(recent test s at [place]) Start: 09-24-2023 End: 12-24-2023 CBC W Auto Differential panel - Blood COMPLETE BLOOD COUNT AND DIFFERENTIAL Lab Routine Diarrhea of presumed infectious origin Generalized abdominal pain Expected: 09/24/2023, Expires: 12/24/2023 [facility] Comment on above: Expected: 09/24/2023, Expires: Start: 09-24-2023 End: 12-24-2023 Clostridioides difficile toxin genes [Presence] in Stool by GENEVA with probe detection C. DIFFICILE PCR Lab Routine Diarrhea of presumed infectious origin Expected: 09/24/2023, Expires: 12/24/2023 [facility] Comment on above: Expected: 09/24/2023, Expires: Start: 09-24-2023 End: 12-24-2023 Comprehensive metabolic 2000 panel - Serum or Plasma COMPREHENSIVE METABOLIC PANEL Lab Routine Diarrhea of presumed infectious origin Generalized abdominal pain Expected: 09/24/2023, Expires: 12/24/2023 [facility] Comment on above: Expected: 09/24/2023, Expires: 4 Start: 09-24-2023 End: 12-24-2023 Giardia lamblia+Cryptosporidium sp Ag [Presence] in Stool by Immunoassay CRYPTOSPORIDIUM AND GIARDIA ANTIGENS BY EIA Microbiology Routine Diarrhea of presumed infectious origin Expected: 09/24/2023, Expires: 12/24/2023 [facility] Comment on above: Expected: 09/24/2023, Expires: Start: 08-13-2023 End: 11-12-2023 Hemoglobin A1c in Blood [facility] Comment on above: Expected: 08/13/2023, Expires: Start: 05-20-2023 Patient discharge [facility] Start: 05-20-2023 Procedure discontinued [facility] Start: 05-19-2023 Administration of blood product [facility] Start: 05-15-2023 Application of elastic bandage [facility] Start: 05-13-2023 Referral to derrick barge operator [facility] Start: 05-11-2023 Referral to occupational therapist [facility] Start: 05-10-2023 Methicillin resistant Staphylococcus aureus screening test [facility] Start: 05-10-2023 Care regimes management [facility] Start: 05-10-2023 [facility] Start: 05-10-2023 Cardiac monitoring [facility] Start: 05-10-2023 Catheterization of vein [facility] Start: 05-10-2023 End: 05-10-2023 Notification of physician [facility] Start: 05-10-2023 Thyroid stimulating hormone measurement [facility] Start: 05-10-2023 End: 05-11-2023 [facility] Start: 05-09-2023 Application of intermittent pneumatic compression device [facility] Start: 05-09-2023 Following clinical pathway protocol [facility] Start: 05-09-2023 Aspiration precautions [facility] Start: 05-09-2023 Assessment of risk of venous thromboembolism [facility] Start: 05-09-2023 Documentation procedure [facility] Start: 05-09-2023 Incentive spirometry [facility] Start: 05-09-2023 Insertion of catheter into peripheral vein [facility] Start: 05-09-2023 Measuring intake and output [facility] Start: 05-09-2023 Oxygen therapy [facility] Start: 05-09-2023 Providing care according to standard [facility] Start: 05-09-2023 Provision of activity privileges [facility] Start: 05-09-2023 Referral to service [facility] Start: 05-09-2023 Seizure precautions [facility] Start: 05-09-2023 End: 05-10-2023 [facility] Start: 05-09-2023 Verification routine [facility] Start: 05-09-2023 Admission procedure [facility] Start: 05-09-2023 Patient referral to dietitian [facility] Start: 04-27-2023 Patient discharge [facility] Start: 04-23-2023 Referral to occupational therapist [facility] Start: 04-23-2023 End: 04-23-2023 Referral to service [facility] Start: 04-21-2023 [facility] Start: 04-20-2023 Following clinical pathway protocol [facility] Start: 04-20-2023 Ambulation without limitation [facility] Start: 04-20-2023 Assessment of risk of venous thromboembolism [facility] Start: 04-20-2023 Care regimes management [facility] Start: 04-20-2023 Insertion of catheter into peripheral vein [facility] Start: 04-20-2023 Notification of physician [facility] Start: 04-20-2023 Providing care according to standard [facility] Start: 04-20-2023 [facility] Start: 04-20-2023 Verification routine [facility] Start: 04-20-2023 Admission procedure [facility] Start: 04-20-2023 Blood chemistry [facility] Start: 04-20-2023 Triacylglycerol lipase measurement [facility] Start: 04-20-2023 [facility] Start: 10-09-2022 Covid-19 Vaccine ( season) Covid-19 Vaccine ( season) [facility] Start: 2022 Hepatitis B Vaccine (1 of 3 - Risk 3-dose series) Hepatitis B Vaccine (1 of 3 - Risk 3-dose series) [facility] Start: 2022 RSV Vaccine (1 - 1-dose 60+ series) RSV Vaccine (1 - 1-dose 60+ series) [facility] Start: 2022 RSV Vaccine (1 - Risk 60-74 years 1-dose series) RSV Vaccine (1 - Risk 60-74 years 1-dose series) [facility] Start: 03-24-2022 Patient discharge [facility] Start: 03-23-2022 Referral to service [facility] Start: 03-23-2022 Referral to occupational therapist [facility] Start: 03-21-2022 Aspiration precautions [facility] Start: 03-21-2022 Assessment of risk of venous thromboembolism [facility] Start: 03-21-2022 Care regimes management [facility] Start: 03-21-2022 Fall prevention [facility] Start: 03-21-2022 Introduction of urinary catheter [facility] Start: 03-21-2022 Notification of physician [facility] Start: 03-21-2022 Oxygen therapy [facility] Start: 03-21-2022 Referral to service [facility] Start: 03-21-2022 Vital signs measurements [facility] Start: 03-21-2022 [facility] Start: 03-21-2022 Verification routine [facility] Start: 03-21-2022 Admission procedure [facility] Start: 03-21-2022 Patient referral to dietitian [facility] Start: 02-04-2022 Patient discharge [facility] Start: 02-01-2022 Ambulation without limitation [facility] Start: 02-01-2022 Assessment of risk of venous thromboembolism [facility] Start: 02-01-2022 Care regimes management [facility] Start: 02-01-2022 Fall prevention [facility] Start: 02-01-2022 Inhalation therapy procedure [facility] Start: 02-01-2022 Insertion of catheter into peripheral vein [facility] Start: 02-01-2022 Measuring intake and output [facility] Start: 02-01-2022 Notification of physician [facility] Start: 02-01-2022 Oxygen therapy [facility] Start: 02-01-2022 Providing care according to standard [facility] Start: 02-01-2022 Provision of activity privileges [facility] Start: 02-01-2022 Referral to service [facility] Start: 02-01-2022 Vital signs measurements [facility] Start: 02-01-2022 [facility] Start: 02-01-2022 Following clinical pathway protocol [facility] Start: 02-01-2022 Verification routine [facility] Work Phone: Start: 02-01-2022 Admission procedure [facility] Start: 02-01-2022 Blood chemistry [facility] Work Phone: Start: 02-01-2022 Lipase measurement [facility] Work Phone: Start: 02-01-2022 End: 02-01-2022 [facility] Work Phone: Start: 02-01-2022 Patient referral to dietitian [facility] Start: 11-14-2021 Patient discharge [facility] Work Phone: Start: 11-11-2021 Assessment of risk of venous thromboembolism [facility] Work Phone: Start: 11-11-2021 Care regimes management [facility] Work Phone: Start: 11-11-2021 Insertion of catheter into peripheral vein [facility] Work Phone: Start: 11-11-2021 Introduction of urinary catheter [facility] Work Phone: Start: 11-11-2021 Measuring intake and output [facility] Work Phone: Start: 11-11-2021 Notification of physician [facility] Work Phone: Start: 11-11-2021 Providing care according to standard [facility] Work Phone: Start: 11-11-2021 Provision of activity privileges [facility] Work Phone: Start: 11-11-2021 Referral to service [facility] Work Phone: Start: 11-11-2021 Vital signs measurements [facility] Work Phone: Start: 11-11-2021 [facility] Work Phone: Start: 11-11-2021 Following clinical pathway protocol [facility] Work Phone: Start: 11-11-2021 Admission procedure [facility] Work Phone: Start: 11-11-2021 Patient referral to dietitian [facility] Work Phone: Start: 11-08-2021 Patient discharge [facility] Work Phone: Start: 11-06-2021 [facility] Work Phone: Start: 11-05-2021 Referral to service [facility] Work Phone: Start: 11-05-2021 Patient referral to dietitian [facility] Work Phone: Start: 11-05-2021 Ambulation without limitation [facility] Work Phone: Start: 11-05-2021 Assessment of risk of venous thromboembolism [facility] Work Phone: Start: 11-05-2021 Care regimes management [facility] Work Phone: Start: 11-05-2021 Insertion of catheter into peripheral vein [facility] Work Phone: Start: 11-05-2021 Notification of physician [facility] Work Phone: Start: 11-05-2021 Providing care according to standard [facility] Work Phone: Start: 11-05-2021 [facility] Work Phone: Start: 11-05-2021 Verification routine [facility] Work Phone: Start: 11-05-2021 Admission procedure [facility] Work Phone: Start: 11-05-2021 End: 11-05-2021 Following clinical pathway protocol [facility] Work Phone: Start: 11-05-2021 Patient discharge [facility] Work Phone: Start: 10-06-2021 Suicide precautions [facility] Work Phone: Start: 10-09-2018 Influenza vaccination INFLUENZA VACCINE (#1) [facility] Start: 03-23-2017 Diabetic foot examination Diabetic Foot Exam [facility] Start: 06-07-2016 Hemoglobin A1c measurement HbA1C [facility] Start: 2012 Colonoscopy COLON CANCER SCREENING DISCUSSION [facility] Start: 2012 Prostate specific antigen measurement PROSTATE CANCER SCREENING DISCUSSION [facility] Start: 2012 Shingrix Vaccine (1 of 2) Shingrix Vaccine (1 of 2) [facility] Start: 2012 Zoster vaccine hzv live for subcutaneous use ZOSTER (SHINGLES) VACCINE (1 of 2) [facility] Start: 07-30-2007 Screening for malignant neoplasm of colon [facility] Start: 2002 Fasting lipid profile LIPID SCREENING [facility] Start: 1981 Hepatitis A Vaccine (1 of 2 - Risk 2-dose series) Hepatitis A Vaccine (1 of 2 - Risk 2-dose series) [facility] Start: 1981 Pneumococcal Vaccine: 50+ (1 of 2 - PCV) Pneumococcal Vaccine: 50+ (1 of 2 - PCV) [facility] Start: 1981 Third diphtheria, tetanus and acellular pertussis (DTaP) vaccination TDAP (ADULT) [facility] Start: 1981 Urine microalbumin profile DTaP,Tdap,Td Vaccine (1 - Tdap) [facility] Start: 1980 Anxiety Screening Anxiety Screening [facility] Start: 1980 BP Controlled (<130/80) BP Controlled (<130/80) [facility] Start: 1980 Tetanus vaccination TETANUS [facility] Start: 07-30-1975 HIV screening HIV SCREENING DISCUSSION [facility] Start: 1972 Glaucoma screening Dilated Retinal Exam [facility] Start: 1972 Hepatitis B screening Urine Albumin:Creatinine Ratio [facility] Start: 1968 Pneumococcal vaccination Pneumococcal Vaccine (1 of 2 - PCV) [facility] Start: 1962 Hepatitis C antibody, confirmatory test HEPATITIS C VIRUS SCREENING [facility] Alanine aminotransfe rase [Enzymatic activity/volume] in Serum or Plasma [facility] Alanine aminotransfe rase [Enzymatic activity/volume] in Serum or Plasma [facility] Alanine aminotransfe rase [Enzymatic activity/volume] in Serum or Plasma [facility] Albumin [Mass/volume ] in Serum or Plasma [facility] Albumin [Mass/volume ] in Serum or Plasma [facility] Albumin [Mass/volume ] in Serum or Plasma [facility] Albumin [Moles/volum e] in Serum or Plasma [facility] Albumin/Globulin ratio [facility] Alkaline phosphatase [Enzymatic activity/volume] in Serum or Plasma [facility] Alkaline phosphatase [Enzymatic activity/volume] in Serum or Plasma [facility] Alkaline phosphatase [Enzymatic activity/volume] in Serum or Plasma [facility] Amphetamine [Mass/volume] in Urine [facility] Amphetamine [Mass/volume] in Urine [facility] Amphetamine [Mass/volume] in Urine [facility] Amphetamines [Presen ce] in Urine by Screen method >1000 ng/mL [facility] Anion gap in Serum o r Plasma [facility] Anion gap measurement [facility] Anion gap measurement [facility] Anion gap measurement [facility] Aspartate aminotransferase [Enzymatic activity/volume] in Serum or Plasma [facility] Aspartate aminotransferase [Enzymatic activity/volume] in Serum or Plasma [facility] Aspartate aminotransferase [Enzymatic activity/volume] in Serum or Plasma [facility] Bacteria identified in Unspecified specimen by Anaerobe culture [facility] Basic metabolic 2008 panel with ionized calcium - Serum or Plasma [facility] Benzodiazepine measurement, urine [facility] Benzodiazepine measurement, urine [facility] Benzodiazepine measurement, urine [facility] Benzodiazepine measurement, urine [facility] Bilirubin, total measurement [facility] Bilirubin, total measurement [facility] Bilirubin, total measurement [facility] Bilirubin.direct [Mass/volume] in Serum or Plasma [facility] BUN/Creatinine ratio [facility] BUN/Creatinine ratio [facility] BUN/Creatinine ratio [facility] BUN/Creatinine ratio [facility] Calcium [Mass/volume ] in Serum or Plasma [facility] Calcium [Mass/volume ] in Serum or Plasma [facility] Calcium [Mass/volume ] in Serum or Plasma [facility] Calcium [Mass/volume ] in Serum or Plasma [facility] Carbon dioxide, tota l [Moles/volume] in Central venous blood [facility] Carbon dioxide, tota l [Moles/volume] in Serum or Plasma [facility] Carbon dioxide, tota l [Moles/volume] in Serum or Plasma [facility] Carbon dioxide, tota l [Moles/volume] in Serum or Plasma [facility] Chloride [Moles/volu me] in Serum or Plasma [facility] Chloride [Moles/volu me] in Serum or Plasma [facility] Chloride [Moles/volu me] in Serum or Plasma [facility] Clostridioides diffi cile DNA [Presence] in Unspecified specimen by [facility] with probe detection [facility] [facility] Clostridioides diffi cile toxin genes [Presence] in Stool by GENEVA with probe detection C. DIFFICILE PCR Lab Routine Chronic diarrhea Ordered: 08/09/2023 [facility] Comment on above: Ordered: 08/09/2023 Cocaine measurement, urine [facility] Cocaine measurement, urine [facility] Cocaine measurement, urine [facility] Cocaine measurement, urine [facility] Creatinine [Mass/vol ume] in Serum or Plasma [facility] Creatinine [Moles/volume] in Serum or Plasma [facility] Creatinine [Moles/volume] in Serum or Plasma [facility] Creatinine [Moles/volume] in Serum or Plasma [facility] End: 11-12-2024 CT Abdomen and Pelvis WO contrast CT ABD/PEL WO IVCON Radiology Routine Generalized abdominal pain Diarrhea of presumed infectious origin Weight loss Alcohol-induced chronic pancreatitis (HCC) 1 Occurrences starting 10/14/2023 until 11/12/2024 [facility] Work Phone: Comment on above: 1 Occurrences starting 10/14/2023 until 11/12/2024 End: 01-05-2025 CT Pancreas W contrast IV CT PANCREAS W IVCON Radiology Routine Diarrhea, unspecified type Acute pancreatitis, unspecified complication status, unspecified pancreatitis type 1 Occurrences starting 12/07/2023 until 01/05/2025 [facility] Work Phone: Comment on above: 1 Occurrences starting 12/07/2023 until 01/05/2025 CT Pancreas W contra st IV CT PANCREAS W IVCON Radiology Routine Diarrhea, unspecified type Acute pancreatitis, unspecified complication status, unspecified pancreatitis type 12/08/2023 11:00 AM EDT [facility] Work Phone: Cytology report of B francisco fluid Cyto stain [facility] End: 12-23-2024 EGD DIAGNOSTIC EGD DIAGNOSTIC Endoscopy Routine Anemia, unspecified type Weight loss Chronic pancreatitis, unspecified pancreatitis type (HCC) Epigastric pain 1 Occurrences starting 12/24/2023 until 12/23/2024 [facility] Comment on above: 1 Occurrences starting 12/24/2023 until 12/23/2024 Electrophoresis: [id number] [facility] Electrophoresis: eleuterio ma globulin [facility] Erythrocyte mean corpuscular volume determination [facility] Erythrocyte mean corpuscular volume determination [facility] Erythrocyte mean corpuscular volume determination [facility] Ethanol [Mass/volume ] in Serum or Plasma [facility] fentaNYL [Presence] in Urine by Screen method [facility] End: 12-23-2024 Flexible sigmoidoscopy study COLONOSCOPY DIAGNOSTIC Endoscopy Routine Anemia, unspecified type Weight loss 1 Occurrences starting 12/24/2023 until 12/23/2024 [facility] Work Phone: Comment on above: 1 Occurrences starting 12/24/2023 until 12/23/2024 Giardia lamblia+Cryptosporidium sp Ag [Presence] in Stool by Immunoassay CRYPTOSPORIDIUM AND GIARDIA ANTIGENS BY EIA Microbiology Routine Chronic diarrhea Ordered: 08/09/2023 [facility] Comment on above: Ordered: 08/09/2023 Gliadin peptide IgA Ab [Units/volume] in Serum [facility] Gliadin peptide IgG Ab [Units/volume] in Serum [facility] Globulin measurement [facility] Glucose [Mass/volume ] in Serum or Plasma [facility] Glucose [Mass/volume ] in Serum or Plasma [facility] Glucose [Mass/volume ] in Serum or Plasma [facility] Glucose [Mass/volume ] in Serum or Plasma [facility] Hematocrit [Volume Fraction] of Blood [facility] Hematocrit [Volume Fraction] of Blood [facility] Hematocrit [Volume Fraction] of Blood [facility] Hemoglobin [Mass/vol ume] in Blood [facility] Hemoglobin [Mass/vol ume] in Blood [facility] Hemoglobin [Mass/vol ume] in Blood [facility] Hemoglobin A1c/Hemoglobin.total in Blood [facility] Hemoglobin.gastroint gurwinder nal.lower [Presence] in Stool by Immunoassay IMMUNOCHEMICAL FECAL OCCULT BLOOD TEST Lab Routine Anemia, unspecified type Ordered: 08/11/2023 [facility] Work Phone: Comment on above: Ordered: 08/11/2023 Hemoglobin.gastroint gurwinder nal.lower [Presence] in Stool by Immunoassay IMMUNOCHEMICAL FECAL OCCULT BLOOD TEST Lab Routine Diarrhea of presumed infectious origin Ordered: 09/24/2023 [facility] Comment on above: Ordered: 09/24/2023 Hepatitis A virus Ig M Ab [Presence] in Serum [facility] Hepatitis B core antibody measurement, IgM type [facility] Hepatitis B surface antigen measurement [facility] Hepatitis C antibody measurement [facility] IgA [Mass/volume] in Serum or Plasma [facility] IgG [Mass/volume] in Serum or Plasma [facility] IgM [Mass/volume] in Serum or Plasma [facility] In-vitro immunologic test [facility] Laboratory data interpretation [facility] Lactic acid measurement [facility] Lactoferrin [Presenc e] in Stool by Immunoassay [facility] Leukocytes [#/volume ] in Blood [facility] Leukocytes [#/volume ] in Blood [facility] Leukocytes [#/volume ] in Blood [facility] Magnesium [Mass/volu me] in Serum or Plasma [facility] Magnesium measurement [facility] Mean corpuscular hemoglobin concentration determination [facility] Mean corpuscular hemoglobin concentration determination [facility] Mean corpuscular hemoglobin concentration determination [facility] Mean corpuscular hemoglobin determination [facility] Mean corpuscular hemoglobin determination [facility] Mean corpuscular hemoglobin determination [facility] Measurement of 3,4-methylenedioxymetham phetamine in urine [facility] Measurement of 3,4-methylenedioxymetham phetamine in urine [facility] Measurement of 3,4-methylenedioxymetham phetamine in urine [facility] Measurement of immunoglobulin A in serum specimen [facility] Measurement of renal function [facility] Measurement of renal function [facility] Measurement of renal function [facility] Measurement of renal function [facility] Methadone measuremen t, urine [facility] Methadone measuremen t, urine [facility] Methadone measuremen t, urine [facility] Methadone measuremen t, urine [facility] Mycobacterium tuberculosis tuberculin stimulated gamma interferon [Presence] in Blood [facility] Neutrophil count [facility] Neutrophil count [facility] Neutrophil count [facility] Neutrophil cytoplasm ic Ab.classic [Units/volume] in Serum [facility] Neutrophil percent differential count [facility] Neutrophil percent differential count [facility] Neutrophil percent differential count [facility] Nucleic acid assay [facility] Ova and parasites identified in Unspecified specimen by Light microscopy OVA + PARA MICROSCOPIC Microbiology Routine Chronic diarrhea Ordered: 08/09/2023 [facility] Comment on above: Ordered: 08/09/2023 Ova and parasites identified in Unspecified specimen by Light microscopy OVA + PARA MICROSCOPIC Microbiology Routine Diarrhea of presumed infectious origin Ordered: 09/24/2023 [facility] Work Phone: Comment on above: Ordered: 09/24/2023 Ova OR parasites identification [facility] P-ANCA measurement [facility] Patient Education [facility] Work Phone: Patient referral [facility] Work Phone: pH of Urine [facility] pH of Urine [facility] pH of Urine [facility] Phencyclidine [Prese nce] in Urine [facility] Phencyclidine [Prese nce] in Urine [facility] Phencyclidine [Prese nce] in Urine [facility] Phencyclidine [Prese nce] in Urine [facility] Platelets [#/volume] in Blood [facility] Platelets [#/volume] in Blood [facility] Platelets [#/volume] in Blood [facility] Potassium [Moles/vol ume] in Serum or Plasma [facility] Potassium [Moles/vol ume] in Serum or Plasma [facility] Potassium [Moles/vol ume] in Serum or Plasma [facility] Potassium measurement [facility] Protein electrophore sis panel - Serum or Plasma [facility] Red blood cell count [facility] Red blood cell count [facility] Red blood cell count [facility] Red cell distributio n width determination [facility] Red cell distributio n width determination [facility] Red cell distributio n width determination [facility] Serum chloride measurement [facility] Serum inorganic phosphate measurement [facility] Sodium [Moles/volume ] in Serum or Plasma [facility] Sodium [Moles/volume ] in Serum or Plasma [facility] Sodium [Moles/volume ] in Serum or Plasma [facility] Sodium measurement [facility] Tissue Pathology bio psy report [facility] Work Phone: Comment on above: Release Upon Ordering for 1 Occurrences starting 04/05/2024, 1 completed Tissue transglutamin ase IgA Ab [Units/volume] in Serum [facility] Total protein measurement [facility] Total protein measurement [facility] Total protein measurement [facility] UA DIP B/O UA DIP B/O Lab R outine Dysuria Ordered: 08/09/2023 [facility] Work Phone: Comment on above: Ordered: 08/09/2023 Urea nitrogen [Mass/volume] in Serum or Plasma [facility] Urea nitrogen [Mass/volume] in Serum or Plasma [facility] Urea nitrogen [Mass/volume] in Serum or Plasma [facility] Urea nitrogen [Mass/volume] in Serum or Plasma [facility] Urine barbiturate measurement [facility] Urine barbiturate measurement [facility] Urine barbiturate measurement [facility] Urine cannabinoid measurement [facility] Urine cannabinoid measurement [facility] Urine cannabinoid measurement [facility] Urine cannabinoid measurement [facility] Urine immunofixation [facility] Urine opiate measurement [facility] Urine opiate measurement [facility] Urine opiate measurement [facility] Urine opiate measurement [facility] US Abdomen limited [facility] Immunizations Immunization Date Immunization Notes Care Provider Fa cility 11-06-2021 influenza, injectabl e, quadrivalent, preservative free [facility] 11-06-2021 influenza, seasonal, injectable [employer]CTOR CRANE OPERATOR-C Andreas Pathak TRACTOR CRANE OPERATOR Work Phone: [facility] 11-06-2021 influenza virus vaccine, unspecified formulation Marianna Wagner 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 Phone: [facility] 01-07-2021 influenza, injectabl e, quadrivalent, contains preservative; Translations: [Fluarix PF Quadrivalent ] 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 [facility] 01-07-2021 influenza, injectabl e, quadrivalent, preservative free TRACTOR CRANE OPERATOR-C Andreas Pathak TRACTOR CRANE OPERATOR Work Phone: [facility] 02-09-2020 influenza, injectabl e, quadrivalent, preservative free [facility] 02-09-2020 influenza, seasonal, injectable [facility] 12-09-2018 influenza, injectabl e, quadrivalent, preservative free; Translations: [Fluarix PF Quadrivalent ] 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 [facility] 11-10-2017 influenza, injectabl e, quadrivalent, preservative free 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 [facility] 11-08-2017 influenza virus vaccine, unspecified formulation DR SHILPI BURNS MD [facility] 11-08-2017 influenza, injectabl e, quadrivalent, preservative free TRACTOR CRANE OPERATOR-C Andreas Pathak TRACTOR CRANE OPERATOR Work Phone: [facility] 10-12-2017 influenza, injectabl e, quadrivalent, preservative free [facility] 10-12-2017 influenza, seasonal, injectable [facility] 12-09-2016 influenza virus vaccine, unspecified formulation DR SHILPI BURNS MD [facility] 12-09-2016 Seasonal, quadrivalent, recombinant, injectable influenza vaccine, preservative free TRACTOR CRANE OPERATOR-C Andreas Zo TRACTOR CRANE OPERATOR Work Phone: [facility] 11-29-2016 influenza virus vaccine, unspecified formulation DR SHILPI BURNS MD [facility] 11-29-2016 influenza, injectabl e, quadrivalent, preservative free [facility] 11-29-2016 influenza, seasonal, injectable [facility] 11-29-2016 Seasonal, quadrivalent, recombinant, injectable influenza vaccine, preservative free TRACTOR CRANE OPERATOR-C nAdreas Cam[place]ins TRACTOR CRANE OPERATOR Work Phone: [facility] 12-10-2015 influenza virus vaccine, unspecified formulation DR HSILPI BURNS MD [facility] 12-10-2015 Seasonal, quadrivalent, recombinant, injectable influenza vaccine, preservative free TRACTOR CRANE OPERATOR-C Andreas Zo TRACTOR CRANE OPERATOR Work Phone: [facility] 10-23-2014 influenza virus vaccine, unspecified formulation DR SHILPI BURNS MD [facility] 10-23-2014 Seasonal, quadrivalent, recombinant, injectable influenza vaccine, preservative free TRACTOR CRANE OPERATOR-C Andreas Luxpkins TRACTOR CRANE OPERATOR Work Phone: [facility] Payers Date Payer Category Payer Medicare [id number] 2024 Self-pay [id number] 2023 Medicaid [id number] 2022 Unknown [id number] 2022 Medicaid [id number] 2022 Unknown [id number] 2022 Medicaid [id number] 2018 Unknown MULTIPLAN MULTIP SAMY xxxxxxxxx 2018-Present xxxxxxxxx [id number] [id number] 2016 Unknown [id number] 1962 Unknown [id number] 2..840.1.934893.3.579.2. 1962 Unknown [id number] 2.16.840.1.162833.3.579.2. 1962 Unknown [id number] 2..840.1.262427.3.579.2. 1962 Unknown [id number] .840.1.669676.3.579.2. 1962 Unknown [id number] 2.16.840.1.252070.3.579.2. 1962 Unknown [id number] 2.16.840.1.359986.3.579.2. 1962 Unknown [id number] 2.16840.1.438411.3.579.2.627 1962 Unknown [id number] 2.16.840.1.389408.3.579.2. 1962 Unknown [id number] 2.16.840.1.006468.3.579.2.627 1962 Unknown [id number] 2.16.840.1.425917.3.579.2.627 1962 Unknown [id number] 2.16.840.1.159426.3.579.2.627 1962 Unknown [id number] 2.16.840.1.860405.3.579.2.627 1962 Unknown [id number] 2.16.840.1.714332.3.579.2.627 1962 Unknown [id number] 2.16.840.1.577122.3.579.2.627 1962 Unknown [id number] 2.16.840.1.241701.3.579.2.278 1962 Unknown [id number] 2.840.1.711189.3.579.2.278 1962 Unknown [id number] 2.16.840.1.730777.3.579.2.278 1962 Unknown [id number] 2.16.840.1.185878.3.579.2.278 1962 Unknown [id number] 2.16.840.1.719800.3.579.2.278 Unknown [id number] 2.16840.1.190935.3.579.2.462 Unknown [id number] 2.16.840.1.135056.3.579.2.462 Unknown [id number] 2.16.840.1.050403.3.579.2.462 Unknown [id number] 2.16.840.1.167257.3.579.2.462 Unknown [id number] 2.16.840.1.692622.3.579.2.462 Unknown [id number] 2.16.840.1.521990.3.579.2.462 Unknown [id number] 2.16.840.1.505209.3.579.2.462 Unknown [id number] 2.16.840.1.329473.3.579.2.462 Unknown [id number] 2.16.840.1.422983.3.579.2.462 Unknown [id number] 2.16.840.1.856742.3.579.2.462 Unknown [id number] 2.16.840.1.401807.3.579.2.462 Unknown [id number] 2.16.840.1.868826.3.579.2.462 Unknown [id number] 2.16.840.1.521027.3.579.2.462 Unknown [id number] 2.16.840.1.834434.3.579.2.462 Unknown [id number] 2.16.840.1.349363.3.579.2.462 Unknown [id number] 2.16.840.1.120785.3.579.2.462 Unknown [id number] 2.16.840.1.379140.3.579.2.462 Unknown [id number] 2.16.840.1.922488.3.579.2.462 Unknown [id number] 2.16.840.1.255947.3.579.2.462 Unknown [id number] 2.16.840.1.454867.3.579.2.462 Unknown [id number] 2.16.840.1.481211.3.579.2.462 Unknown [id number] 2.16.840.1.305690.3.579.2.462 Unknown [id number] 2.16.840.1.534210.3.579.2.462 Unknown [id number] 2.16.840.1.416392.3.579.2.462 Unknown [id number] 2.16.840.1.629932.3.579.2.462 Unknown [id number] 2.16.840.1.921431.3.579.2.462 Unknown [id number] 2.16.840.1.815572.3.579.2.462 Unknown [id number] 2.16.840.1.641382.3.579.2.462 Unknown [id number] 2.16.840.1.870297.3.579.2.462 Unknown [id number] 2.16.840.1.282276.3.579.2.462 Unknown [id number] 2.16.840.1.455018.3.579.2.462 Unknown [id number] 2.16.840.1.708686.3.579.2.462 Unknown [id number] 2.16.840.1.485659.3.579.2.462 Unknown [id number] 2.16.840.1.597889.3.579.2.462 Unknown [id number] 2.16.840.1.684746.3.579.2.462 Unknown [id number] 2.16.840.1.996053.3.579.2.462 Unknown [id number] 2.16.840.1.972195.3.579.2.462 Unknown [id number] 2.16.840.1.271529.3.579.2.462 Unknown [id number] 2.16.840.1.878470.3.579.2.462 Unknown [id number] 2.16.840.1.673845.3.579.2.462 Unknown [id number] 2.16.840.1.019723.3.579.2.462 Unknown [id number] 2.16.840.1.129231.3.579.2.462 Unknown [id number] 2.16.840.1.604814.3.579.2.462 Unknown [id number] 2.16.840.1.725238.3.579.2.462 Unknown [id number] 2.16.840.1.749797.3.579.2.462 Unknown [id number] 2.16.840.1.229694.3.579.2.462 Unknown [id number] 2.16.840.1.421891.3.579.2.462 Unknown [id number] 2.16.840.1.662647.3.579.2.462 Unknown [id number] 2.16.840.1.905829.3.579.2.462 Unknown [id number] 2.16.840.1.009616.3.579.2.462 Unknown [id number] 2.16.840.1.293877.3.579.2.462 Unknown [id number] 2.16.840.1.059894.3.579.2.462 Unknown [id number] 2.16.840.1.537679.3.579.2.462 Unknown [id number] 2.16.840.1.312715.3.579.2.462 Unknown [id number] 2.16.840.1.323579.3.579.2.462 Unknown [id number] 2.16.840.1.743711.3.579.2.462 Unknown [id number] 2.16.840.1.436172.3.579.2.462 Unknown [id number] 2.16.840.1.264353.3.579.2.462 Unknown [id number] 2.16.840.1.090635.3.579.2.462 Unknown [id number] 2.16.840.1.222988.3.579.2.462 Unknown [id number] 2.16.840.1.053344.3.579.2.462 Unknown [id number] 2.16.840.1.685389.3.579.2.462 Unknown [id number] 2.16.840.1.736990.3.579.2.462 Unknown [id number] 2.16.840.1.218765.3.579.2.462 Unknown [id number] 2.16.840.1.987540.3.579.2.462 Unknown [id number] 2.16.840.1.446896.3.579.2.462 Unknown [id number] 2.16.840.1.905835.3.579.2.462 Unknown [id number] 2.16.840.1.458779.3.579.2.462 Unknown [id number] 2.16.840.1.678273.3.579.2.462 Unknown [id number] 2.16.840.1.876380.3.579.2.462 Unknown [id number] 2.16.840.1.499548.3.579.2.462 Unknown [id number] 2.16.840.1.025395.3.579.2.462 Social History Date Type Detail Facility Tobacco smoking stat us NVIS Unknown if ever smoked [facility] Start: 1960 Sex Assigned At Not on file [facility] Start: 09-06-2018 End: 03-29-2023 Heavy tobacco smoker (finding) [facility] Comment on above: No smoke exposure Start: 1960 Sex Assigned At Male [facility] Start: 05-04-2021 End: 05-11-2023 Tobacco smoking status NVIS Unknown if ever smoked [facility] Start: 09-08-2019 Heavy [facility] Start: 09-08-2019 None [facility] Start: 06-07-2018 Alone [facility] Start: 05-11-2020 [facility] Start: 08-09-2023 End: 11-15-2023 Tobacco smoking status NHIS Smokes tobacco daily [facility] Start: 02-08-2023 End: 03-09-2016 History of tobacco use Cigarette Smoker [facility] Start: 08-09-2023 End: 10-18-2024 Cigarettes smoked current (pack per day) - Reported 0.5 [facility] Start: 08-09-2023 End: 11-15-2023 Tobacco use and exposure Smokeless tobacco non-user [facility] Start: 08-09-2023 End: 04-12-2024 Alcohol intake Current drinker of alcohol (finding) [facility] Start: 08-09-2023 End: 10-18-2024 Tobacco use panel [facility] Start: 03-09-2016 Adult Depression Screening Assessment 0 [facility] Start: 10-14-2023 [facility] Start: 11-15-2023 Tobacco Comment Pt smoked 1 pa ck daily for x 40 years, pt has cut back to 1 pack per week x 1 year [facility] Start: 11-24-2018 Sex Male (finding) [facility] Start: 08-28-2024 End: 10-12-2024 Tobacco smoking status NHIS Current Light tobacco smoker [facility] (I/We) worried wheth er (my/our) food would run out before (I/we) got money to buy more. Never true [facility] Work Phone: In the past 12 month s, was there a time when you were not able to pay the mortgage or rent on time? No [facility] Medical Equipment Procedure Code Equipment [...] TID, # 100 EA, 11 Refill(s), Pharmacy: [id number], 180.3, cm, 02/14/21 8:43:00 EST, Height, 73.3, kg, 02/14/21 8:43:00 EST, Dosing Weight Start: 04-04-2021 See Instructions , 1 bottle of 100- PATIENT TESTS 2-3 TIMES PER DAY, # 1 EA, 11 Refill(s), Pharmacy: [id number], 176.5, cm, 05/02/21 11:34:00 EDT, Height, 73.2, kg, 05/02/21 13:04:00 EDT, Dosing Weight Start: 05-02-2021 See Instructions , qs 1 month supply-PATIENT TESTS 2-3 TIMES PER DAY, # 1 EA, 11 Refill(s), Pharmacy: [facility] 074, 176.5, cm, 05/02/21 11:34:00 EDT, Height, 73.2, kg, 05/02/21 13:04:00 EDT, Dosing Weight Start: 05-02-2021 ONE TOUCH ULTRA BLUE TEST STRP, See Instructions, USE 1 STRIP THREE TIMES A DAY TO TEST BLOOD SUGAR, # 100 strip, 11 Refill(s), Pharmacy: [facility] [id number], 180.3, cm, 04/13/19 10:19:00 EST, Height, 81.7, [...] TID, # 100 EA, 11 Refill(s), Pharmacy: [id number], 180.3, cm, 02/14/21 8:43:00 EST, Height, 73.3, kg, 02/14/21 8:43:00 EST, Dosing Weight Start: 04-04-2021 See Instructions , 1 bottle of 100- PATIENT TESTS 2-3 TIMES PER DAY, # 1 EA, 0 Refill(s), Pharmacy: [facility], 176.5, cm, 12/23/21 10:15:00 EST, Height, 68.2, kg, 12/23/21 10:15:00 EST, Dosing Weight Start: 04-09-2022 See Instructions , qs 1 month supply-PATIENT TESTS 2-3 TIMES PER DAY, # 1 EA, 0 Refill(s), Pharmacy: [facility], 176.5, cm, 12/23/21 10:15:00 EST, Height, 68.2, kg, 12/23/21 10:15:00 EST, Dosing Weight Start: 04-09-2022 ONE TOUCH ULTRA BLUE TEST STRP, See Instructions, USE 1 STRIP THREE TIMES A DAY TO TEST BLOOD SUGAR, # 100 strip, 11 Refill(s), Pharmacy: [facility] [id number], 180.3, cm, 04/13/19 10:19:00 EST, Height, 81.7, [...] TID, # 100 EA, 11 Refill(s), Pharmacy: [facility] 074, 180.3, cm, 02/14/21 8:43:00 EST, Height, 73.3, kg, 02/14/21 8:43:00 EST, Dosing Weight Start: 04-04-2021 See Instructions , 1 bottle of 100- PATIENT TESTS 2-3 TIMES PER DAY, # 1 EA, 0 Refill(s), Pharmacy: [facility], 176.5, cm, 12/23/21 10:15:00 EST, Height, 68.2, kg, 12/23/21 10:15:00 EST, Dosing Weight Start: 04-09-2022 See Instructions , qs 1 month supply-PATIENT TESTS 2-3 TIMES PER DAY, # 1 EA, 0 Refill(s), Pharmacy: [facility], 176.5, cm, 12/23/21 10:15:00 EST, Height, 68.2, kg, 12/23/21 10:15:00 EST, Dosing Weight Start: 04-09-2022 ONE TOUCH ULTRA BLUE TEST STRP, See Instructions, USE 1 STRIP THREE TIMES A DAY TO TEST BLOOD SUGAR, # 100 strip, 11 Refill(s), Pharmacy: [facility] [id number], 180.3, cm, 04/13/19 10:19:00 EST, Height, 81.7, [...] TID, # 100 EA, 11 Refill(s), Pharmacy: [facility] 0[facility], 180.3, cm, 02/14/21 8:43:00 EST, Height, 73.3, kg, 02/14/21 8:43:00 EST, Dosing Weight Start: 04-04-2021 See Instructions , 1 bottle of 100- PATIENT TESTS 2-3 TIMES PER DAY, # 1 EA, 0 Refill(s), Pharmacy: [facility], 176.5, cm, 12/23/21 10:15:00 EST, Height, 68.2, kg, 12/23/21 10:15:00 EST, Dosing Weight Start: 04-09-2022 See Instructions , qs 1 month supply-PATIENT TESTS 2-3 TIMES PER DAY, # 1 EA, 0 Refill(s), Pharmacy: [facility], 176.5, cm, 12/23/21 10:15:00 EST, Height, 68.2, kg, 12/23/21 10:15:00 EST, Dosing Weight Start: 04-09-2022 ONE TOUCH ULTRA BLUE TEST STRP, See Instructions, USE 1 STRIP THREE TIMES A DAY TO TEST BLOOD SUGAR, # 100 strip, 11 Refill(s), Pharmacy: [facility] [id number], 180.3, cm, 04/13/19 10:19:00 EST, Height, 81.7, [...] TID, # 100 EA, 11 Refill(s), Pharmacy: [facility], 180.3, cm, 02/14/21 8:43:00 EST, Height, 73.3, kg, 02/14/21 8:43:00 EST, Dosing Weight Start: 04-04-2021 See Instructions , 1 bottle of 100- PATIENT TESTS 2-3 TIMES PER DAY, # 1 EA, 0 Refill(s), Pharmacy: [facility], 176.5, cm, 12/23/21 10:15:00 EST, Height, 68.2, kg, 12/23/21 10:15:00 EST, Dosing Weight Start: 04-09-2022 See Instructions , qs 1 month supply-PATIENT TESTS 2-3 TIMES PER DAY, # 1 EA, 0 Refill(s), Pharmacy: [facility], 176.5, cm, 12/23/21 10:15:00 EST, Height, 68.2, kg, 12/23/21 10:15:00 EST, Dosing Weight Start: 04-09-2022 ONE TOUCH ULTRA BLUE TEST STRP, See Instructions, USE 1 STRIP THREE TIMES A DAY TO TEST BLOOD SUGAR, # 100 strip, 11 Refill(s), Pharmacy: [facility] [id number], 180.3, cm, 04/13/19 10:19:00 EST, Height, 81.7, [...] TID, # 100 EA, 11 Refill(s), Pharmacy: [facility] 074, 180.3, cm, 02/14/21 8:43:00 EST, Height, 73.3, kg, 02/14/21 8:43:00 EST, Dosing Weight Start: 04-04-2021 See Instructions , 1 bottle of 100- PATIENT TESTS 2-3 TIMES PER DAY, # 1 EA, 0 Refill(s), Pharmacy: [facility], 176.5, cm, 12/23/21 10:15:00 EST, Height, 68.2, kg, 12/23/21 10:15:00 EST, Dosing Weight Start: 04-09-2022 See Instructions , qs 1 month supply-PATIENT TESTS 2-3 TIMES PER DAY, # 1 EA, 0 Refill(s), Pharmacy: [facility], 176.5, cm, 12/23/21 10:15:00 EST, Height, 68.2, kg, 12/23/21 10:15:00 EST, Dosing Weight Start: 04-09-2022 ONE TOUCH ULTRA BLUE TEST STRP, See Instructions, USE 1 STRIP THREE TIMES A DAY TO TEST BLOOD SUGAR, # 100 strip, 11 Refill(s), Pharmacy: [facility] [id number], 180.3, cm, 04/13/19 10:19:00 EST, Height, 81.7, [...] TID, # 100 EA, 11 Refill(s), Pharmacy: [facility] 0[facility], 180.3, cm, 02/14/21 8:43:00 EST, Height, 73.3, kg, 02/14/21 8:43:00 EST, Dosing Weight Start: 04-04-2021 See Instructions , 1 bottle of 100- PATIENT TESTS 2-3 TIMES PER DAY, # 1 EA, 0 Refill(s), Pharmacy: [facility], 176.5, cm, 12/23/21 10:15:00 EST, Height, 68.2, kg, 12/23/21 10:15:00 EST, Dosing Weight Start: 04-09-2022 See Instructions , qs 1 month supply-PATIENT TESTS 2-3 TIMES PER DAY, # 1 EA, 0 Refill(s), Pharmacy: [facility], 176.5, cm, 12/23/21 10:15:00 EST, Height, 68.2, kg, 12/23/21 10:15:00 EST, Dosing Weight Start: 04-09-2022 See Instructions , One Touch Ultra Blue Testi Strips 1 bottle of 100 Use 1 strip to test BS TID, # 100 EA, 11 Refill(s), Pharmacy: [facility], 180.3, cm, 02/14/21 8:43:00 EST, Height, 73.3, kg, 02/14/21 8:43:00 EST, Dosing Weight Start: 04-04-2021 See Instructions , 1 bottle of 100- PATIENT TESTS 2-3 TIMES PER DAY, # 1 EA, 0 Refill(s), Pharmacy: [facility], 176.5, cm, 12/23/21 10:15:00 EST, Height, 68.2, kg, 12/23/21 10:15:00 EST, Dosing Weight Start: 04-09-2022 See Instructions , qs 1 month supply-PATIENT TESTS 2-3 TIMES PER DAY, # 1 EA, 0 Refill(s), Pharmacy: [facility], 176.5, cm, 12/23/21 10:15:00 EST, Height, 68.2, kg, 12/23/21 10:15:00 EST, Dosing Weight Start: 04-09-2022 Graft Gelweave 2 8mm Straight Gelatin Polyester Woven 30cm Cardiovascular - [id number] Start: 03-19-2016 Graft Gelweave V alsalva Vascutek 36mm 28mm Gelatin Woven 15cm 28mm - [id number] Start: 03-19-2016 [place] Thk1.65mm P tfe 4x.5in Cardiovascular Sterile - [id number] Start: 03-19-2016 Graft Gelweave 8 mm Straight Gelatin Polyester Woven 30cm Cardiovascular - [id number] Start: 03-19-2016 Patch Thk.2-.4mm Bovine Pericardium Encap 14x9cm Cardiovascular Soft - [id number] Start: 03-19-2016 Valve Aort 23mm Crp-Ed Thfx - [id number] Start: 03-19-2016 [id number] Start: 03-28-2016 End: 11-26-2023 See Instructions , One Touch Ultra Blue Testi Strips 1 bottle of 100 Use 1 strip to test BS TID, # 100 EA, 11 Refill(s), Pharmacy: [facility] 074, 180.3, cm, 02/14/21 8:43:00 EST, Height, 73.3, kg, 02/14/21 8:43:00 EST, Dosing Weight Start: 04-04-2021 See Instructions , 1 bottle of 100- PATIENT TESTS 2-3 TIMES PER DAY, # 1 EA, 0 Refill(s), Pharmacy: [facility], 176.5, cm, 12/23/21 10:15:00 EST, Height, 68.2, kg, 12/23/21 10:15:00 EST, Dosing Weight Start: 04-09-2022 See Instructions , qs 1 month supply-PATIENT TESTS 2-3 TIMES PER DAY, # 1 EA, 0 Refill(s), Pharmacy: [facility], 176.5, cm, 12/23/21 10:15:00 EST, Height, 68.2, kg, 12/23/21 10:15:00 EST, Dosing Weight Start: 04-09-2022 1 Each three wilbur es a day. [id number] Start: 11-26-2023 End: 02-21-2024 USE ONE 3 TIMES DAILY [id number] Sta rt: 02-21-2024 See Instructions , One Touch Ultra Blue Testi Strips 1 bottle of 100 Use 1 strip to test BS TID, # 100 EA, 11 Refill(s), Pharmacy: [facility], 180.3, cm, 02/14/21 8:43:00 EST, Height, 73.3, kg, 02/14/21 8:43:00 EST, Dosing Weight Start: 04-04-2021 See Instructions , 1 bottle of 100- PATIENT TESTS 2-3 TIMES PER DAY, # 1 EA, 0 Refill(s), Pharmacy: [facility], 176.5, cm, 12/23/21 10:15:00 EST, Height, 68.2, kg, 12/23/21 10:15:00 EST, Dosing Weight Start: 04-09-2022 See Instructions , qs 1 month supply-PATIENT TESTS 2-3 TIMES PER DAY, # 1 EA, 0 Refill(s), Pharmacy: [facility], 176.5, cm, 12/23/21 10:15:00 EST, Height, 68.2, kg, 12/23/21 10:15:00 EST, Dosing Weight Start: 04-09-2022 USE 3 TIMES DAILY [id number] Start: 05-31-[id number] Newsome [id number] Start: 06-25-2016 Device Angio-Sea l Vip 6fr .035in Collagen 70cm Closure Valuelink Guidewire - [id number] Start: 10-23-2024 Valve Benjamin 3 U ltra Resilia Commander Rojas 23mm Aortic Transcatheter - [id number] Start: 10-23-2024 Goals Date Patient Goal Desired Activity /State Personal health goal Personal health goal Personal health goal Functional Status Date Assessment Result Facility 09-04-2024 Functional status Ambulates [facility] Work Phone: 08-03-2024 Functional status Ambulates [facility] Work Phone: 07-14-2024 Functional status Ambulates;Up ad haleigh [facility] Work Phone: 07-06-2024 Functional status Ambulates [facility] Work Phone: 06-28-2024 Functional status Ambulates;Bath room Privilege [facility] Work Phone: 10-30-2023 Functional Status [facility] Functional Status Standard Safet y ID band on, Call device within reach, Bed in low position, Wheels locked, Upper/Half-Length side-rails up, personal items within reach, Bedside Cart Locked, Visitor at bedside [facility] 05-20-2023 Functional status Ambulates [facility] Work Phone: 04-27-2023 Functional status Chair [facility] Work Phone: 03-19-2023 Functional Status Room check performed [facility] 03-19-2023 Functional Status 100 [facility] 03-19-2023 Functional Status [facility] 03-19-2023 Functional Status 3am-7am [facility] 03-19-2023 Functional Status [facility] 03-19-2023 [facility] 03-[facility] Functional Status [facility] 03-18-2023 Functional Status Dinner Percent 75 [facility] 03-18-2023 Functional Status Activity Yu tance One assist [facility] 03-18-2023 Functional Status [facility] 03-18-2023 Functional Status Morning Snack Percent 1 00 [facility] 03-18-2023 [facility] 03-18-[facility]23 Functional Status [facility] 03-18-2023 Functional Status [facility] 03-18-2023 Functional Status [facility] 03-17-2023 Functional Status bilateral knee high removed/off [facility] 03-17-2023 Functional Status 100 [facility] 03-17-2023 Functional Status Done [facility] 03-17-2023 Functional Status [facility] 03-16-2023 Functional Status [facility] 03-16-2023 Functional Status [facility] 03-16-2023 Functional Status [facility] 03-16-2023 Functional Status Mobile home [facility] 03-15-2023 Functional Status [facility] 10-05-2022 Functional Status ID band on, Call device within reach, Bed in low position, Wheels locked, Upper/Half-Length side-rails up [facility] 05-13-2022 Functional Status Independent [facility] 03-24-2022 Functional status Ambulates [facility] Work Phone: 02-04-2022 Functional status Ambulates [facility] Work Phone: 11-14-2021 Functional status Up ad haleigh [facility] Work Phone: 11-08-2021 Functional status Ambulates [facility] Work Phone: 11-08-2021 Functional status None [facility] Work Phone: 06-01-2021 Functional status Up ad haleigh [facility] Work Phone: 05-05-2021 Functional status Chair [facility] Work Phone: 03-28-2016 Are you deaf, or do you have serious difficulty hearing No 03/28/2016 4:20 PM Ynes WillisRn)(Hist), RN No [facility] 03-28-2016 Are you blind, or do you have serious difficulty seeing, even when wearing glasses No 03/28/2016 4:20 PM Ynes Willis)(Hist), RN No [facility] 03-28-2016 Do you have serious difficulty walking or climbing stairs No 03/28/2016 4:20 PM Ynes Willis (Rn)(Hist), RN No [facility] 03-28-2016 Do you have difficul ty dressing or bathing No 03/28/2016 4:20 PM Ynes WillisRn)(Hist), RN No [facility] 03-28-2016 Because of a physica l, mental, or emotional condition, do you have difficulty doing errands alone such as visiting a physician's office or shopping No 03/28/2016 4:20 PM Ynes Willis (Rn)(Hist), RN No [facility] Mental Status Date Assessment Result Facility 10-06-2024 Cognitive function Awake;Alert;A ppropriate;Fo llows Commands [facility] Work Phone: 09-04-2024 Cognitive function Voice/Name [facility] Work Phone: 08-03-2024 Cognitive function Voice/Name [facility] Work Phone: 07-14-2024 Cognitive function Voice/Name [facility] Work Phone: 07-06-2024 Cognitive function Voice/Name [facility] Work Phone: 06-28-2024 Cognitive function Voice/Name [facility] Work Phone: 10-30-2023 Mental Status Orientation Oriented x 4 [facility] 10-30-[address] [facility] 05-20-2023 Cognitive function Voice/Name [facility] Work Phone: 04-27-2023 Cognitive function Voice/Name [facility] Work Phone: 03-19-2023 Mental Status Oriented x 4 [facility] 03-19-2023 Mental Status [facility] 03-18-2023 Mental Status [facility] 03-18-2023 Mental Status [facility] 10-05-2022 Mental Status Orientation Oriented x 4 [facility] 07-20-2022 Cognitive function Level Of Cons ciousness Awake;Alert;Follows Commands [facility] Work Phone: 05-13-2022 Mental Status Orientation Oriented x 4 [facility] 05-13-[address] [facility] 03-24-2022 Cognitive function Appropriate [facility] Work Phone: 02-04-2022 Cognitive function Voice/Name [facility] Work Phone: 02-01-2022 Cognitive function Level Of Cons ciousness Awake;Alert;Appropriate;Fo llows Commands [facility] Work Phone: 11-13-2021 Cognitive function Voice/Name [facility] Work Phone: 11-08-2021 Cognitive function Voice/Name [facility] Work Phone: 09-30-2021 Cognitive function Level Of Cons ciousness Awake;Alert;Appropriate;Fo llows Commands [facility] Work Phone: 06-01-2021 Cognitive function Voice/Name [facility] Work Phone: 05-04-2021 Cognitive function Voice/Name [facility] Work Phone: 05-04-2021 Cognitive function Level Of Cons ciousness Awake;Alert;Appropriate [facility] Work Phone: 03-28-2016 Because of a physica l, mental, or emotional condition, do you have serious difficulty concentrating, remembering, or making decisions No 03/28/2016 4:20 PM Ynes Willis (Rn)(Hist), RN No [facility] Clinical Notes 05-02-2021 to 10-26-2024 Talia Serrano APRN.HIGH SCHO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 - 10/23/2024 1:00 PM Talia Mcclelland APRN.HIGH SCHO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 - 10/20/2024 3:41 PM EDT Note Date & Type Note Facility 10-26-2024 Note [facility] 10-26-2024 [facility] 10-26-2024 [facility] 10-25-2024 [facility] 10-25-2024 [facility] 10-25-2024 [facility] 10-25-2024 Note [facility] 10-24-2024 Note [facility] 10-24-2024 Note [facility] 10-24-2024 Note [facility] 10-23-2024 [facility] 10-23-2024 Note [facility] 10-23-2024 History of Present illness Narrative [facility] Department of Cardiovascular Medicine SECTION OF INTERVENTIONAL CARDIOLOGY Date October 23, 2024 MULTI DISCIPLINARY TAVR TEAM MEETING [employer] Teams Meeting Team members: Dr. Penn, Dr. Garcia, Dr. Alexander, Dr. Dorman, Dr. Talamantes, Dr. Schwartz, Dr. Hernandez, Dr. Golden, Dr. Blair, Dr. Alonso, Joni RODRIGUEZ, Joni Serrano CNP, Roshan Melgar and Can Alvarado. PATIENT NAME: Analilia Melendrez DATE: 10/23/2024 Presenting Physician: Dr. Penn Outcome: Analilia Melendrez history and imaging were reviewed by the physicians in attendance. 3 cardiac surgeries and most recent in 2017 which is biopros AVR and ascending aorta. Prior surgeries are all due to aorta disease. EF of 25%. Peak gradient of almost 90mm. chronic oxygen. The collaborative recommendation would be TF S3 today with Dr. Penn The patient will be contacted in the next few days/weeks to discuss the team recommendations. TAVR procedure scheduling will be handled by: CVM coordinator Talia Serrano APRN.STEPHANIE documented in this encounter [facility] 10-23-2024 Note [facility] 10-22-2024 [facility] 10-21-2024 [facility] 10-21-2024 Note HNO ID: [id number] Author: NOTE, INTERFACE, ? Service: ? Author Type: ? Type: Progress Notes Filed: 10/23/2024 09:18 Note Text: Epic Scheduled Downtime: 10/21/2024 1:00:00 AM to 10/21/2024 2:06:36 AM [facility] 10-20-2024 [facility] 10-20-2024 History of Present illness Narrative I spoke with Analilia Melendrez Will proceed with the following: No fasting is needed on pre-op day. Stop taking anticoagulation: Heparin drip - hold for 6 hours prior to procedure Isamar/Amaury/Jose: Hold DOAC 24 hours prior to procedure. If GFR <30, hold DOAC 48 hours prior to procedure Jessie: Hold DOAC the night before Is patient taking GLP-1 agonist? N/A Yes/No. If Yes hold per protocol Is patient taking SGLT2 Inhibitors? N/A Yes/No. If Yes hold per protocol Dental clearance: edentulous Device check completed Contrast Allergy: N/A Beta Thiago/Calcium Channel Blockers ([address] Roman): N/A Surgeon Note Dr. Cintron KCCQ-12: completed 15 Ft W: completed Talia Serrano APRN.[facility], Please schedule Analilia Melendrez, [phone] for COMMERCIAL TF- TAVR V-I-V S3 Procedure on: 10/23/2024 Patient is inpatient and will remain until the procedure is completed Please place Structural lab schedule on : 10/23/2024 at 10AM CPT Code: 78307 DX code: T82.01XA FORMAL SERVICE WAITER: Dr. Penn Performing Physician: Dr. Penn OR: 81 Surgeon: Dr. Barragan Please schedule bed reservation for post procedure-(should be a TCI) ALBERT schedule- intra/op Patient also needs INSURANCE PRECERTIFICATION ADL SCORE 6__ SURVIVAL RATE GREATER THAN 1 YEAR____Y___(LOOKING FOR A YES) EF ___25__(GREATER THAN 50%) Thank you. Request sent to scheduling. Talia Serrano APRN.HIGH SCHO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 documented in this encounter [facility] 10-20-2024 Note [facility] 10-20-2024 [facility] 10-20-2024 [facility] 10-19-2024 [facility] 10-19-2024 [facility] 10-18-2024 [facility] 10-18-2024 [facility] 10-18-2024 [facility] 10-18-2024 [facility] 10-12-2024 Discharge summary Note Date/Time October 12, 2024 3:33pm [facility] Records Department [address] [place] [id number] Emergency Department Summary 10/12/24 MR#: [id number] Acct: [id number] Name: ANALILIA MELENDREZ Rep #:[id number] : 1960 64 From: Perez Ribeiro DO PCP: Sigrid Call DO Status:REG ER Location: ED HPI History of Present Illness Chief Complaint: Shortness of Breath Narrative Narrative: Patient is a 64-year-old male with past medical history of chronic pancreatitis,alcohol abuse, seizures, diabetes, AAA, pacemaker, hypercholesteremia, right bundle branch block, hypertension, cirrhosis, CHF who presented to the emergencydepartment chief complaint shortness of breath. Patient states that for the last few days he has noted increased welling in his lower extremities as well asworsening shortness of breath on exertion. He states that he has been taking his medications as prescribed not missing doses. He states that he has had 3 paracentesis and feels like he needs another 1. He states that he does not haveanother one scheduled at this point in time. Patient denies any blood thinning medications. Patient denies any recent travels denies any history of blood clots. [facility] Medical History Chronic pancreatitis Chronic pancreatitis due to chronic alcoholism Malnutrition Pancytopenia Medically noncompliant Thrombocytopenia Macrocytosis associated with alcohol Ascites due to [...] nt 06/30/24 07/31/24 History iron) tablet (FeroSul) spironolactone 25 mg tablet 25 mg PO DAILY diuretic 30 days 07/06/24 07/31/24 Rx Held on 09/04/24. #30 tabs Instructions: Resume on 09/14/24. L.acidophil,salivari-Bifido 1 cap PO BID Probiotic 07/31/24 History bifidum-Strep thermoph 175 mg capsule furosemide 20 mg tablet 40 mg (2 x 20 mg) PO DAILY 3 0 days 08/03/24 Unknown Rx #60 tabs sacubitril 24 mg-valsartan 26 mg 1 tab PO BID #60 tabs 08/03/24 Unknown Rx tablet (Entresto) cwupuc-[id number]-oglcfxz 1 cap PO BIDCM 08/29/24 Unkn own History 24,000-76,000-120,000 unit capsule,delayed rel (Creon) metoprolol succinate 25 mg 25 mg PO DAILY blood pressu re #30 10/12/24 Unknown Rx tablet,extended release 24 hr tabs Allergy/AdvReac Type Severity Reaction Status Date / Time No Known Allergies Allergy Verified 10/10/24 14:24 Family History Father CAD (coronary artery disease) [...] ROS Narrative Constitutional: Denies fevers, chills, headaches Cardiovascular: Denies chest pain or palpitations Respiratory: When the shortness of breath with exertion as noted above denies chest pain Abdomen: Denies abdominal pain nausea vomit diarrhea : Denies any urinary symptoms Neurological: Denies any numbness, weakness, tingling Musculoskeletal: Denies back pain Skin: Denies any rashes or lesions EXAM Physical Exam Narrative Exam Narrative: General: Patient was lying in bed rest comfortably did not appear in any acute distress Head: Atraumatic, normocephalic Eyes: PERRL bilaterally, EOMI bilateral, no conjunctival injection noted Neck: Soft, supple, trachea midline Cardiovascular: Regular rate and rhythm no murmurs gallops rubs noted Respiratory: Clear to auscultation bilaterally Abdomen: Soft, nondistended, nontender to palpation Extremities: +5/5 strength noted in the bilateral lower extremities, equal pulses +2/4 in the bilateral extremities, 1+ pitting edema in the bilateral lower extremities Neurological: Patient commands that he was at [facility] years 2024 Skin: Warm, dry, intact no rashes or lesions noted Const Vital Signs: 10/12/24 09:49 10/12/24 09:56 10/12/24 11:17 Temperature 97.2 F L Temperature Source Temporal Pulse Rate 100 Respiratory Rate 29 H Respiratory Effort Normal Non-Labored Respiratory Depth Normal Respiratory Pattern Normal Blood Pressure 142/102 H Blood Pressure Mean 115 Pulse Ox 93 Oxygen Delivery Method Nasal Cannula Room Air Oxygen Flow Rate (L/min) 2 10/12/24 11:25 10/12/24 13:00 Temperature Temperature Source Pulse Rate 102 H 81 Respiratory Rate 32 H 18 Respiratory Effort Respiratory Depth Respiratory Pattern Blood Pressure 122/94 H 128/96 H Blood Pressure Mean 103 106 Pulse Ox 95 96 Oxygen Delivery Method Nasal Cannula Oxygen Flow Rate (L/min) 2 MDM MDM MDM Narrative Medical decision making narrative: Patient is a 64-year-old male who presents to the emergency department chief complaint dyspnea on exertion. On the differential diagnosis includes but not limited to CHF exacerbation, pneumonia, pneumothorax, ACS, ascites secondary to his cirrhosis/heart failure. Once workup is obtained and reviewed he will be reevaluated. Patient will not be given IV fluids as there is concern for hypervolemic state at this point in time. Patient is on 2 L nasal cannula whichis at his baseline. Patient's echocardiogram from 07/03/2024 reviewed which showed ejection fraction of 35 to 40%. Patient's CBC reviewed showed a white blood count 4.5, hemoglobin 11, platelet count was noted to be 152. Patient INR 1.4, PT is 17.4. Patient sodium 140, potassium normal at 3.7, creatinine is 1.06. Patient's troponin was 105 with a delta troponin of 91 and a 4-hour troponin of 83 this is likely secondary to hishypervolemic state he does not have any chest pain. Patient's EKG was reviewed as well which showed sinus rhythm with a rate of 96 bpm with evidence of right bundle branch block. Patient's proBNP was elevated 50,353. Patient chest x-rayreviewed by myself by radiology showed bilateral pleural effusions right greaterthan the left as described with basilar compressive atelectasis. Patient CT abdomen pelvis with IV contrast reviewed and showed bilateral pleural effusions right greater than left with the dependent basilar atelectasis diffuse pancreatic calcification in keeping with chronic pancreatitis with pancreatic atrophy noted. Fatty infiltration of the liver. Stable aneurysmal dilation of the ascending thoracic aorta. Small umbilical hernia containing fat. Patient given 40 mg IV Lasix. Patient ambulated here he felt very short of breath. Reach out to hospitalist Dr. Willoughby who accept the patient for admission for thoracentesis, CHF exacerbation, dyspnea on exertion. Patient was notified is agreeable spinal course concerns answered. Lab Data Labs: Laboratory Results - last 24 hr 10/12/24 10/12/24 10/12/24 10:12 12:08 14:18 WBC 4.5 RBC 3.43 L Hgb 11.0 L Hct 34.4 L MCV 100.3 H MCH 32.1 H MCHC 32.0 RDW Std Deviation 62.1 H RDW Coeff of Kalpana 16.7 H Plt Count 152 MPV 12.0 Immature Gran % (Auto) 0.400 Neut % (Auto) 65.8 Lymph % (Auto) 20.8 [place] % (Auto) 9.5 Eos % (Auto) 1.5 Baso % (Auto) 2.0 H Absolute Neuts (auto) 3.0 Absolute Lymphs (auto) 0.94 Nucleated RBC % 0 PT 17.4 H INR 1.4 APTT 29.0 Sodium 140 Potassium 3.7 Chloride 106 Carbon Dioxide 22.2 Anion Gap 11 BUN 11 Creatinine 1.06 Estim Creat Clear Calc 70.52 Est GFR (MDRD) Non-Af 79 BUN/Creatinine Ratio 10.7 Glucose 241 H Calcium 8.9 Troponin T High Sens 105 H* D Troponin T Hi Sens 2 Hr 91 H* Troponin T Hi Sens 4Hr 83 H* [place] [address] H Radiography Diagnostic Testing: Clinical Impression(s) from Imaging Studies Chest X-Ray 10/12/24 10:15 IMPRESSION: Bilateral pleural effusions right greater than left as described with bibasilar compressive atelectasis. Reading [id number] Ab[facility]/Pelvis CT 10/12/24 13:10 IMPRESSION: Bilateral pleural effusions right greater than left with dependent bibasilar atelectasis. Diffuse pancreatic calcification in keeping with chronic pancreatitis. Pancreatic atrophy. Fatty infiltration of the liver. Stable aneurysmal dilatation of the ascending thoracic aorta. Small umbilical hernia containing fat. Reading Location[id number] Discharge Plan Triage Chief Complaint: Shortness of Breath ED Provider: Perez Ribeiro Dx/Rx/DC Orders Clinical Impression: Intractable abdominal pain, Chronic pancreatitis, Cirrhosis, HTN (hypertension), CHF exacerbation, Dyspnea on exertion, Bilateral pleural effusion Prescriptions: No Action atorvastatin 10 mg tablet [...] mg iron) tablet 325 mg PO DAILY spironolactone 25 mg Tablet 25 mg PO DAILY 30 Days Qty: 30 2RF L.acidoph,saliva-B.bif-S.therm 175 mg Capsule 1 cap PO BID sacubitril-valsartan [Entresto] 24-26 mg tablet 1 tab PO BID Qty: 60 0RF furosemide 20 mg Tablet 40 mg PO DAILY 30 Days Qty: 60 2RF Creon 24,000-76,000 -120,000 unit Capsule,Delayed Release(Dr/Ec) 1 cap PO BIDCM Patient Comments: med ordered 3x/day. pt states he takes it 'maybe 2x/day' metoprolol succinate 25 mg tablet extended release 24 hr 25 mg PO DAILY Qty: 30 11RF Primary Care Provider: Sigrid Call Referrals: Sigrid Call, DO [Primary Care Provider] - Print Language: Emirati Disposition Disposition: Acute Care Hospital [facility] What to do if you have Problems For any increased pain, shortness of breath, bleeding, nausea or vomiting, chestpain, or any unexpected problems, contact your Primary Care Provider. Call [facility] ([phone]) or report to the closest Emergency Room. Call 911 if necessary. 10/12/24 1533 <Electronically signed by Perez Ribeiro DO> Cosigner Signature (if applicable): CC: Sigrid Call DO ~ Signed [facility] Work Phone: 1(133) 409-467909-04-2025 Radiology Diagnostic study [facility]09-04-2025 Radiology Diagnostic study [facility]08-29-2025 Radiology Diagnostic study [facility] 08-28-2024 Radiology Diagnostic study [facility]07-21-2025 Discharge summary Author Vinh Lomeli [facility] Note Date/Time August 28, 2024 11:4 4pm [facility] Medical Records Department [address] [place] [address] Emergency Department Summary 08/28/24 MR#: [id number] Acct: [id number] Name: ANALILIA MELENDREZ Rep #:[id number] : 1960 64 From: Vinh Lomeli MD [...] history of anemia, ascites, alcohol abuse, pancreatitis, NM, diabetes and aortic valve replaced by bovine [...] reflux #60 tabs 06/27/23 07/31/24 Rx release uuukxw-bhlyxqtb-cbnwbaa 1 cap PO TIDCM #90 caps 06/0907/31/24 [...] % (Auto) 68.3 Lymph % (Auto) 21.3 [place] % (Auto) 7.6 Eos % (Auto) 1.4 [...] Clarity Clear Urine pH 7.0 Ur Specific [place] 1.010 Urine Protein Negative Urine Glucose (UA) [...] (Auto) Neut % (Auto) Lymph % (Auto) [place] % (Auto) Eos % (Auto) Baso % (Auto) Absolute Neuts (auto) Absolute Lymphs (auto) Nucleated RBC % D-Dimer Quant (PE/DVT) Sodium Potassium Chloride Carbon Dioxide Anion Gap BUN Creatinine Estim Creat Clear Calc Est GFR (MDRD) Non-Af BUN/Creatinine Ratio Glucose Calcium Troponin T High Sens Troponin T Hi Sens 2 Hr 57 H* Urine Color Urine Clarity Urine pH Ur Specific [place] Urine Protein Urine Glucose (UA) Urine Ketones [...] pneumonia. 2. Bilateral pleural effusions. Reading Location: [facility] Chest x-ray, 2 views, AP and lateral, noted by myself and radiologist. Prior sternotomy. Left-sided pacemaker. Bilateral moderate-sized pleural effusions. Rhythm Strip Rhythm Strip: Paced Rate: 108 Ectopy: None EKG Initial EKG: Attestation: I personally reviewed and interpreted this EKG as follows: Interpretation: Paced Comments: Paced rhythm 108 no acute signs of NM or ischemia. Discharge Plan Triage Chief Complaint: [...] 60 2RF Primary Care Provider: Sigrid Call Referrals: Sigrid Call, [Primary Care Provider] - Print Language: Emirati What to do if you have Problems For any increased pain, shortness of breath, bleeding, nausea or vomiting, chestpain, or any unexpected problems, contact your Primary Care Provider. Call [facility] ([phone]) or report to the closest Emergency Room. Call 911 if necessary. 08/28/24 2344 <Electronically signed by Vinh Lomeli MD> Cosigner Signature (if applicable): CC: Sigrid Call DO ~ Signed [facility] Work Phone: 1(356) 571-123707-07-2025 Telephone encounter Note* Telephone Encounter - Suzi Haynes MA - 08/14/2024 11:56 AM EDT Patient transferred out of [facility]. Suzi Haynes MA [facility]07-07-2025 Miscellaneous Notes* Telephone Encounter - Suzi Haynes MA - 08/14/2024 11:56 AM EDT Patient transferred out of [facility]. Suzi Haynes MA [facility] Telephone encounter Note * Telephone Encounter - Suzi Haynes MA - 08/04/2024 8:12 AM EDT [facility]06-27-2025 Miscellaneous Notes* Telephone Encounter - Suzi Haynes MA - 08/04/2024 8:12 AM EDT [facility] Discharge summary Author Valeriy [facility] Note Date/Time August 03, 2024 12:1 6pm [facility] Medical Records Department [address] [place] [address] Discharge Summary 08/03/24 1206 MR#: [id number] Acct: [id number] Name: ANALILIA MELENDREZ Rep #:[id number] : 1960 64 From: Valeriy Connell DO PCP: Sigrid Call DO Status:ADM IN Location: [facility] [id number] Providers Date of Admission: 08/01/24 Primary Care Physician: GREG CookDO Consultations 08/02/24 07:59 Consult: Vascular Surgery Routine [...] mg PO BID reflux #60 tabs 06/27/23 hdcknm-sohfosja-xabgwns 24,000-76,000-120,000 unit capsule,delayed rel (Creon) 1cap PO [...] Do recommend that he do follow-up with [facility]. Do recommend that he follow-up with cardiologyand [...] % (Auto) 64.5, Lymph % (Auto) 21.3, [place] % (Auto) 10.6 H, Eos % (Auto) [...] Valeriy Connell Primary Care Provider: Sigrid Call [facility] Consulting Providers: Iman Aguayo; Valeriy Ross [...] Qty: 60 2RF Referrals / Follow Up: [facility] [Provider Group] - Within 1 Month [facility] [Provider Group] - Within 1 Month Sigrid Call DO [Primary Care Provider] - Within 2 Weeks Disposition Disposition (needs filled in before D/C Order can be placed): Home, Self Care Charges/Coding Visit Charges Inpatient E&M: 44729 Disch Hosp >30min 08/03/24 1216 <Electronically signed by Valeriy Connell DO> Cosigner Signature (if applicable): CC: Dr. Valeriy Connell DO; Sigrid Call DO~ Signed [facility] Work Phone: 1(965) 140-950306-26-2025 Progress note Author Valeriy Connell [facility] Note Date/Time August 03, 2024 12:0 6pm [facility] Medical Records Department [address] [place] [address] Progress Note - Hospitalist 08/03/24 0742 MR#: [id number] Acct: [id number] Name: ANALILIA MELENDREZ Rep #:[id number] : 1960 64 From: Valeriy Connell DO PCP: Sigrid Call DO Status:ADM IN Location: [place] [address]- 1 Reason for Visit Reason for Visit: [...] % (Auto) 64.5, Lymph % (Auto) 21.3, [place] % (Auto) 10.6 H, Eos % (Auto) [...] Cosigner Signature (if applicable): CC: ~ Signed [facility] Work Phone: 1(836) 999-657706-26-2025 Progress note Author Iman Aguayo [facility] Note Date/Time August 03, 2024 6:40 am [facility] Medical Records Department [address] [place] [address] Progress Note - Hospitalist 08/03/24 0639 MR#: [id number] Acct: [id number] Name: ANALILIA MELENDREZ Rep #:[id number] : 1960 64 From: Iman Aguayo MD PCP: Sigrid Call DO Status:ADM IN Location: [place] [address] Hospitalist Note PCP contacted hospital to discuss patient as they are having difficulties setting up follow-up with specialists as he is constantly being admitted and hasnot had follow-up for some time. She is requesting if able to add referral at discharge for gastroenterology and cardiology if possible. 08/03/24 0640 <Electronically signed by Iman Aguayo MD> Cosigner Signature (if applicable): CC: ~ Signed [facility] Work Phone: 1(122) 246-919306-25-2025 Consult note Author Suyapa Bustos [facility] Note Date/Time August 02, 2024 6:19 pm [facility] Medical Records Department [address] [place] [address] Consultation - Surgical 08/02/24 1712 MR#: [id number] Acct: [id number] Name: ANALILIA MELENDREZ Rep #:[id number] : 1960 64 From: Suyapa BALDERAS PCP: Sigrid Call DO Status:ADM IN Location: [place] [id number]- [id number] Assessment & Plan Assessment/Plan (1) H/O aortic [...] this time. Would advise he re-establish with F CT for ongoing surveillance. HPI Consult Data Date of Consult: 08/02/24 HPI Narrative HPI Narrative: ANALILIA MELENDREZ, is a 64 M who presented to [facility] ER on 08/01/24 increased edema and [...] bioprosthetic aortic valve replacement around 2017 at [facility]. He denies any chest pain today. He reports his SOB is much better, he is overall feeling much better than yesterday. [facility] Medical History Malnutrition Pancytopenia Medically noncompliant [...] reflux #60 tabs 06/27/23 07/31/24 Rx release qucvdm-vmccljme-gjzhien 1 cap PO TIDCM #90 caps 06/0907/31/24 [...] (Auto) 64.6, Lymph % (Auto) 18.5 L, [place] % (Auto) 12.9 H, Eos % (Auto) [...] aorta measures 4.0 cm in diameter. 3. Vvxbiqtk-va-padxl pleural effusions bilaterally, slightly increased comparedto CT on 07/11/2024. Bibasilar consolidation may represent compressive atelectasis, though infection could appear similar. ABDOMEN AND PELVIS: 1. Mucosal hyperenhancement with mild wall thickening involving the stomach through jejunum, as may be seen with gastroenteritis, which could be of infectious, inflammatory, or ischemic etiology. 2. Hepatic steatosis. Reading Location: [id number] Chest CTA 08/01/24 16:40 IMPRESSION: CHEST: 1. No evidence of pulmonary embolism. 2. Tiny linear hypodensity at the aortic arch, possibly artifactual related to motion or blood flow, though dissection could appear similar. Consider Vascular Surgery consultation. Repeat imaging could be performed with ECG gating. Of note, the ascending thoracic aorta measures 4.0 cm in diameter. 3. Mrarqsaf-ze-popgv pleural effusions bilaterally, slightly increased comparedto CT on 07/11/2024. Bibasilar consolidation may represent compressive atelectasis, though infection could appear similar. ABDOMEN AND PELVIS: 1. Mucosal hyperenhancement with mild wall thickening involving the stomach through jejunum, as may be seen with gastroenteritis, which could be of infectious, inflammatory, or ischemic etiology. 2. Hepatic steatosis. Reading Location: [id number] Charges/Coding Visit Charges Inpatient E&M: 77316 Init Hosp L1 08/02/24 172 <Electronically signed by Suyapa BALDERAS> Cosigner Signature (if applicable): 08/02/24 1819 <Electronically signed by Valeriy Ross MD> CC: Sigrid Call DO~ Signed [facility] Work Phone: 1(903) 951-670106-25-2025 Progress note Author Valeriy Connell [facility] Note Date/Time August 02, 2024 3:00 pm [facility] Medical Records Department [address] [place] [address] Progress Note - Hospitalist 08/02/24 0744 MR#: [id number] Acct: [id number] Name: ANALILIA MELENDREZ Rep #:[id number] : 1960 64 From: Valeriy Connell DO PCP: Sigrid Call DO Status:ADM IN Location: [place] [id number]- [id number] Reason for Visit Reason for Visit: [...] 73.3 H, Lymph % (Auto) 16.1 L, [place] % (Auto) 8.0, Eos % (Auto) 0.9, [...] 20, Alkaline Phosphatase 121,[place] [address] H, Total Protein 6.3, Albumin 3.0 L, [...] (Auto) 64.6, Lymph % (Auto) 18.5 L, [place] % (Auto) 12.9 H, Eos % (Auto) [...] within the left lower lobe. Reading Location[facility] Abdomen/Pelvis CT 08/01/24 16:40 IMPRESSION: CHEST: 1. No evidence of pulmonary embolism. 2. Tiny linear hypodensity at the aortic arch, possibly artifactual related to motion or blood flow, though dissection could appear similar. Consider Vascular Surgery consultation. Repeat imaging could be performed with ECG gating. Of note, the ascending thoracic aorta measures 4.0 cm in diameter. 3. Poazfmcf-oq-lttou pleural effusions bilaterally, slightly increased comparedto CT on 07/11/2024. Bibasilar consolidation may represent compressive atelectasis, though infection could appear similar. ABDOMEN AND PELVIS: 1. Mucosal hyperenhancement with mild wall thickening involving the stomach through jejunum, as may be seen with gastroenteritis, which could be of infectious, inflammatory, or ischemic etiology. 2. Hepatic steatosis. Reading Location: [id number] Chest CTA 08/01/24 16:40 IMPRESSION: CHEST: 1. No evidence of pulmonary embolism. 2. Tiny linear hypodensity at the aortic arch, possibly artifactual related to motion or blood flow, though dissection could appear similar. Consider Vascular Surgery consultation. Repeat imaging could be performed with ECG gating. Of note, the ascending thoracic aorta measures 4.0 cm in diameter. 3. Qtvlydgr-kd-kdigg pleural effusions bilaterally, slightly increased comparedto CT on 07/11/2024. Bibasilar consolidation may represent compressive atelectasis, though infection could appear similar. ABDOMEN AND PELVIS: 1. Mucosal hyperenhancement with mild wall thickening involving the stomach through jejunum, as may be seen with gastroenteritis, which could be of infectious, inflammatory, or ischemic etiology. 2. Hepatic steatosis. Reading Location: [id number] Rhythm Strip Rhythm Strip: Sinus Rhythm Rate: [...] CAT scan. Charges/Coding Visit Charges Inpatient E&M: 91482 Subs Hosp L3 08/02/24 1500 <Electronically signed by Valeriy Connell DO> Cosigner Signature (if applicable): CC: ~ Signed [facility] Work Phone: 1(528) 485-360306-25-2025 History and physical note Author Iman Aguayo [facility] Note Date/Time August 02, 2024 2:41 am [facility] Medical Records Department [address] [place] [address] H&P Exam - Hospitalist 08/01/242043 MR#: [id number] Acct: [id number] Name: ANALILIA MELENDREZ Rep #:[id number] : 1960 64 From: Iman Aguayo MD PCP: Sigrid Call DO Status:ADM IN Location: [facility] [id number] HPI - General General Date of [...] GERD, Tobacco use who presents to the [facility] ED on 08/02/2024with history of 3 [...] physician did discuss case at length with [facility] who reviewed imaging and noted that the [...] 1, labetalol 10 mg IV x 1. [facility] Medical History Malnutrition Pancytopenia Medically noncompliant [...] reflux #60 tabs 06/27/23 07/31/24 Rx release xfwwzu-lplclome-rkehzre 1 cap PO TIDCM #90 caps 06/0907/31/24 [...] 73.3 H, Lymph % (Auto) 16.1 L, [place] % (Auto) 8.0, Eos % (Auto) 0.9, [...] Alkaline Phosphatase 121, [place] [address] H, Total Protein 6.3, Albumin 3.0 L, Globulin 3.3, Albumin/Globulin Ratio 0.9, Lipase 9 L Imaging Radiology Impression Chest X-Ray 08/01/24 15:30 IMPRESSION: Mild bibasilar pleural effusions. Bilateral lower lobe opacities not excluded with residual opacity within the left lower lobe. Reading Location: [id number] Abdomen/Pelvis CT 08/01/24 16:40 IMPRESSION: CHEST: 1. No evidence of pulmonary embolism. 2. Tiny linear hypodensity at the aortic arch, possibly artifactual related to motion or blood flow, though dissection could appear similar. Consider Vascular Surgery consultation. Repeat imaging could be performed with ECG gating. Of note, the ascending thoracic aorta measures 4.0 cm in diameter. 3. Iwbpcqlo-xk-ofzdx pleural effusions bilaterally, slightly increased comparedto CT on 07/11/2024. Bibasilar consolidation may represent compressive atelectasis, though infection could appear similar. ABDOMEN AND PELVIS: 1. Mucosal hyperenhancement with mild wall thickening involving the stomach through jejunum, as may be seen with gastroenteritis, which could be of infectious, inflammatory, or ischemic etiology. 2. Hepatic steatosis. Reading Location: [id number]-O Chest CTA 08/01/24 16:40 IMPRESSION: CHEST: 1. No evidence of pulmonary embolism. 2. Tiny linear hypodensity at the aortic arch, possibly artifactual related to motion or blood flow, though dissection could appear similar. Consider Vascular Surgery consultation. Repeat imaging could be performed with ECG gating. Of note, the ascending thoracic aorta measures 4.0 cm in diameter. 3. Gauefsta-cc-lappk pleural effusions bilaterally, slightly increased comparedto CT on 07/11/2024. Bibasilar consolidation may represent compressive atelectasis, though infection could appear similar. ABDOMEN AND PELVIS: 1. Mucosal hyperenhancement with mild wall thickening involving the stomach through jejunum, as may be seen with gastroenteritis, which could be of infectious, inflammatory, or ischemic etiology. 2. Hepatic steatosis. Reading Location: [id number]-J Assessment & Plan Assessment/Plan (1) Acute HFrEF [...] GERD, Tobacco use who presents to the [facility] ED on 08/02/2024with history of 3 [...] upwith CT surgery/vascular surgery as previously arranged, [facility] reviewed images as noted and findings are [...] prophylaxis: Lovenox. Charges/Coding Visit Charges Inpatient E&M: 87362 Init Hosp L3 06/25/25 0241 <Electronically signed by Iman Aguayo MD> Cosigner Signature (if applicable): CC: Dr. Iman Aguayo MD; Sigrid Call DO~ Signed [facility] Work Phone: 1(108) 363-463906-25-2025 Discharge summary Author Tierney Macdonald [facility] Note Date/Time August 01, 2024 11:0 6pm [facility] Medical Records Department [address] [place] [address] Emergency Department Summary 08/01/24 MR#: [id number] Acct: [id number] Name: ANALILIA MELENDREZ Rep #:[id number] : 1960 64 From: Tierney Rosado PCP: Sigrid Call DO Status:ADM IN Location: [place] [address] HPI History of Present Illness Chief Complaint: [...] paracentesis on 06/26/2024 where they took out 0 cc of straw-colored fluid. Cytology for this was negative for malignancy. GI note from 07/03/2024 for evaluation of ascites?needs a liver biopsy but that to be associated with chronic alcohol use. [facility] Medical History Malnutrition Pancytopenia Medically noncompliant [...] reflux #60 tabs 06/27/23 07/31/24 Rx release xvjrtd-bllebzka-xotfaaj 1 cap PO TIDCM #90 caps 06/0907/31/24 [...] cell count. He has anemia with hemoglobin Doyline 0.0 but this is actually significantly improved [...] with cardiothoracic surgery and cardiac fellow at [facility], Dr. Callahan and , who do not [...] 73.3 H Lymph % (Auto) 16.1 L [place] % (Auto) 8.0 Eos % (Auto) 0.9 [...] Alkaline Phosphatase 121 [place] [address] H Total Protein 6.3 Albumin 3.0 L Globulin 3.3 Albumin/Globulin Ratio 0.9 Lipase 9 L Radiography Diagnostic Testing: Clinical Impression(s) from Imaging Studies Chest X-Ray 08/01/24 15:30 IMPRESSION: Mild bibasilar pleural effusions. Bilateral lower lobe opacities not excluded with residual opacity within the left lower lobe. Reading Location: [facility] Abdomen/Pelvis CT 08/01/24 16:40 IMPRESSION: CHEST: 1. No evidence of pulmonary embolism. 2. Tiny linear hypodensity at the aortic arch, possibly artifactual related to motion or blood flow, though dissection could appear similar. Consider Vascular Surgery consultation. Repeat imaging could be performed with ECG gating. Of note, the ascending thoracic aorta measures 4.0 cm in diameter. 3. Tpiuwroz-bv-etotm pleural effusions bilaterally, slightly increased comparedto CT on 07/11/2024. Bibasilar consolidation may represent compressive atelectasis, though infection could appear similar. ABDOMEN AND PELVIS: 1. Mucosal hyperenhancement with mild wall thickening involving the stomach through jejunum, as may be seen with gastroenteritis, which could be of infectious, inflammatory, or ischemic etiology. 2. Hepatic steatosis. Reading Location: [facility] Chest CTA 08/01/24 16:40 IMPRESSION: CHEST: 1. No evidence of pulmonary embolism. 2. Tiny linear hypodensity at the aortic arch, possibly artifactual related to motion or blood flow, though dissection could appear similar. Consider Vascular Surgery consultation. Repeat imaging could be performed with ECG gating. Of note, the ascending thoracic aorta measures 4.0 cm in diameter. 3. Qoowdgvn-qh-qmtyw pleural effusions bilaterally, slightly increased comparedto CT on 07/11/2024. Bibasilar consolidation may represent compressive atelectasis, though infection could appear similar. ABDOMEN AND PELVIS: 1. Mucosal hyperenhancement with mild wall thickening involving the stomach through jejunum, as may be seen with gastroenteritis, which could be of infectious, inflammatory, or ischemic etiology. 2. Hepatic steatosis. Reading Location: [facility] Rhythm Strip Rhythm Strip: Sinus Rhythm Rate: 90 Ectopy: PAC(s) EKG Initial EKG: Attestation: I personally reviewed and interpreted this EKG as follows: Interpretation: Sinus Rhythm Comments: Normal sinus rhythm at a rate of 90 bpm with PACs Right bundle izzy block Normal ST segments Normal QRS Mildly prolonged QTc of 521 Compared to prior EKG on 06/25/2024, no significant warp changer Discussion w/another healthcare provider: Hospitalist and Mud Grinder (Cardiothoracic surgery at [facility]) Discharge Plan Dx/Rx/DC Orders Clinical Impression: Acute HFrEF (heart failure with reduced ejection fraction), HTN (hypertension),H/O aortic valve replacement, Pleural effusion Disposition Disposition: Acute Care Hospital [facility] Discharge Date/Time: 08/01/24 21:53 What to do if you have Problems For any increased pain, shortness of breath, bleeding, nausea or vomiting, chestpain, or any unexpected problems, contact your Primary Care Provider. Call [facility] ([phone]) or report to the closest Emergency Room. Call 911 if necessary. 08/01/24 6679 <Electronically signed by Tierney Macdonald DO> Cosigner Signature (if applicable): CC: Sigrid Call DO ~ Signed [facility] Work Phone: 1(625) 204-442706-24-2025 Radiology Diagnostic study [facility]06-24-2025 Radiology Diagnostic study [facility]06-24-2025 Radiology Diagnostic study [facility] 07-17-2024 NoteHNO ID: [id number] Author: RADHA ETIENNE RN Service: ? Author Type: Registered Nurse Type: Progress Notes Filed: 07/17/2024 14:28 Note Text: TRANSITIONAL CARE MANAGEMENT (TCM) COMMUNITY MONITORING PROGRAM - [place] SUMMARY: Pt discharged from [facility] on 07/11/24. Patient seen Inpatient TONY Visit? N/A. Patient seen ICARE Program? N/A. Contact made with patient: Yes Hi my name is Radha Etienne RN and I am calling from the [facility] on behalf of your PCP, Marianna Wagner [...] a new PCP and hung up. Outreach [facility]06-09-2025 History of Present illness Narrative* Radha Etienne RN - 07/17/2024 2:13 PM EDT TRANSITIONAL CARE MANAGEMENT (TCM) COMMUNITY MONITORING PROGRAM - [place] SUMMARY: Pt discharged from [facility] on 07/11/24. Patient seen Inpatient TONY Visit? N/A. Patient seen ICARE Program? N/A. Contact made with patient: Yes Hi my name is Radha Etienne RN and I am calling from the [facility] on behalf of your PCP, Marianna Wagner [...] hung up. Outreach Ended [facility] NotePatient Outreach (AGACM) ANALILIA MELENDREZ ([id number]) 1960 M Date Time Provider Department 07/17/[address] [facility] During your visit today, we recorded the following information about you: Radha Etienne RN 07/17/2024 2:28 PM Signed TRANSITIONAL CARE MANAGEMENT (TCM) COMMUNITY MONITORING PROGRAM - [place] SUMMARY: Pt discharged from [facility] on 07/11/24. Patient seen Inpatient TONY Visit? N/A. Patient seen ICARE Program? N/A. Contact made with patient: Yes Hi my name is Radha Etienne RN and I am calling from the [facility] on behalf of your PCP, Marianna Wagner APRN.HIGH SCHO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 I understand you were recently in the [...] Visit: Transition Of Care [4074] Cmt: Andres D/C 07/14/24 Prescriptions as of 07/17/2024 - traMADol (ULTRAM) 50 mg tablet Take 50 mg by mouth every 8 hours as needed for pain. - UNIFINE PENTIPS 31 gauge x /16 USE 3 TIMES DAILY - metoprolol tartrate, [...] fourteen (14) days to upper arm. - nwqxoy-rfyutupb-dpyqzym (CREON 36) 36,000-114,000- 180,000 unit delayed release capsule Take 2 pills by mouth with first bite of meal and take 1 pill with snacks. Max 10 per day. - Cholecalciferol, Vitamin D3, (VITAMIN D-3) 50 mcg (2,000 unit) cap Take 1 capsule by mouth once daily. 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*08/09/2023 Cognitive communication deficit [R41.841] 05/21/2023 Depression [F32.A] 08/09/2023 Elevated liver enzymes [R74.8] 08/09/2023 GERD (gastroesophageal reflux disease) [K21.9] 08/09/2023 Hiatal hernia [K44.9] 08/09/2023 History of aortic valve replacement [Z95.2] 08/09/2023 Hepatic steatosis [K76.0] 08/09/2023 (more content not included)...[facility]06-06-2025 Discharge summary Author Conrado Morel [facility] Note Date/Time July 14, 2024 8:42a [facility] Medical Records Department [address] [place] [address] Discharge Summary 07/14/24 0839 MR#: [id number] Acct: [id number] Name: ANALILIA MELENDREZ Rep #:[id number] : 1960 63 From: Conrado Morel MD PCP: Sigrid Call DO Status:ADM IN Location: [place] [address] Providers Date of Admission: 07/11/24 Date of Discharge: 07/14/24 Primary Care Physician: LETICIA Cook DO Consultations 07/11/24 16:39 Consult: General Surgery Routine Consulting Provider: Piper Fontanez Reason for Consult: Ileus vs pSBO [...] - Requested for PT OT eval and psychiatric social worker to assist with discharge planning [...] mg PO BID reflux #60 tabs 06/27/23 zfcteo-mzdeudso-uijiunt 24,000-76,000-120,000 unit capsule,delayed rel (Creon) 1cap PO [...] Conrado Morel Primary Care Provider: Sigrid Call [facility] Consulting Providers: Piper Fontanez; Melonie De La Rosa Discharge Orders/Prescriptions [...] Self Care Charges/Coding Visit Charges Inpatient E&M: 33915 Disch Hosp >30min 07/14/24 0842 <Electronically signed by Conrado Morel MD> Cosigner Signature (if applicable): CC: Dr. Conrado Morel MD; Sigrid Call DO~ Signed [facility] Work Phone: 1(234) 441-471106-05-2025 Progress note Author Conrado Morel [facility] Note Date/Time July 13, 2024 10:28 am [facility] Medical Records Department [address] [place] [address] Progress Note - Hospitalist 07/13/24 1023 MR#: [id number] Acct: [id number] Name: ANALILIA MELENDREZ Rep #:[id number] : 1960 63 From: Conrado Morel MD PCP: Marianna Wagner, TRACTOR CRANE OPERATOR-C Status:ADM I N Location: MS3 CO812-1 Reason for Visit Reason for Visit: Diagnoses [...] 74.2 H, Lymph % (Auto) 16.6 L, [place] % (Auto) 6.6, Eos % (Auto) 1.4, [...] or mass effect is seen. Reading Location: [address] Small Bowel X-Ray 07/12/24 14:30 IMPRESSION: No evidence of ileus or obstruction. Reading Location: [id number] Physical Exam Narrative GENERAL: cooperative HEENT: Atraumatic; [...] - Requested for PT OT eval and psychiatric social worker to assist with discharge planning [...] documentation, 38Minutes Charges/Coding Visit Charges Inpatient E&M: 57512 Subs Hosp L2 07/13/24 1028 <Electronically signed by Conrado Morel MD> Cosigner Signature (if applicable): CC: ~ Signed [facility] Work Phone: 1(950) 899-485306-05-2025 Progress note Author Dian Mendoza [facility] Note Date/Time July 13, 2024 8:19a m [facility] Medical Records Department [address] [place] [address] Progress Note - Surgery 07/13/24 0808 MR#: [id number] Acct: [id number] Name: ANALILIA MELENDREZ Rep #:[id number] : 1960 63 From: Dian ZUNIGAC PCP: VINOD WildeC Status:ADM I N Location: [place] [address] Subjective Subjective Patient evaluated resting comfortably in [...] 74.2 H, Lymph % (Auto) 16.6 L, [place] % (Auto) 6.6, Eos % (Auto) 1.4, [...] or mass effect is seen. Reading Location: [id number] Small Bowel X-Ray 07/12/24 14:30 IMPRESSION: No evidence of ileus or obstruction. Reading Location: [id number] Physical Exam GI GI Narrative: Abdomen- soft, [...] Thank you Charges/Coding Visit Charges Inpatient E&M: 64797 Subs Hosp L2 07/13/24 0812 <Electronically signed [...] Recommend advancing diet. No further surgical plans. 07/13/24818<Electronically signed by Analilia Miranda MD> Cosigner Signature (if applicable): cc: ~* Signed [facility] Work Phone: 1(539) 230-903806-04-2025 Radiology Diagnostic study [facility]06-04-2025 Progress note Author Conrado Morel [facility] Note Date/Time July 12, 2024 10:31 am [facility] Medical Records Department [address] [place] [address] Progress Note - Hospitalist 07/12/24 0715 MR#: [id number] Acct: [id number] Name: ANALILIA MELENDREZ Rep #:[id number] : 1960 63 From: Conrado Morel MD PCP: VINOD WildeC Status:ADM I N Location: [place] [address] Reason for Visit Reason for Visit: Diagnoses [...] Clarity Clear, Urine pH 8.0, Ur Specific [place] 1.010, Urine Protein 15 H, Urine Glucose [...] 74.9 H, Lymph % (Auto) 15.4 L, [place] % (Auto) 7.7, Eos % (Auto) 0.4, [...] % (Auto) 59.7, Lymph % (Auto) 26.0, [place] % (Auto) 10.5 H, Eos % (Auto) [...] with compressive atelectasis. Reading Location: [facility] Physical Exam Narrative GENERAL: cooperative [...] - Requested for PT OT eval and psychiatric social worker to assist with discharge planning [...] aortic valve stenosis Aortic valve area 1.1 [id number] aortic valve gradient 60.2 mmHg. Mean aortic [...] documentation,52 Minutes Charges/Coding Visit Charges Inpatient E&M: 04090 Subs Hosp L3 07/12/24 1031 <Electronically signed by Conrado Morel MD> Cosigner Signature (if applicable): CC: ~ Signed [facility] Work Phone: 1(655) 292-369306-04-2025 Consult note Author Dian Mendoza [facility] Note Date/Time July 12, 2024 10:15 am [facility] Medical Records Department [address] [place] [address] Consultation - Surgical 07/12/24 0927 MR#: [id number] Acct: [id number] Name: ANALILIA MELENDREZ Rep #:[id number] : 1960 63 From: Dian BALDERAS PA-C PCP: ALAN Wilde Status:ADM I N Location: SD3 KR365-1 Assessment & Plan Assessment/Plan (1) Abdominal pain: [...] He notes his abdominal pain has improved. [facility] Medical History Thrombocytopenia Chronic pancreatitis Macrocytosis [...] reflux #60 tabs 06/27/23 Unknown Rx release xbblsw-fqafzicd-sgwbljt 1 cap PO TIDCM #90 caps 06/09 [...] Clarity Clear, Urine pH 8.0, Ur Specific [place] 1.010, Urine Protein 15 H, Urine Glucose [...] 74.9 H, Lymph % (Auto) 15.4 L, [place] % (Auto) 7.7, Eos % (Auto) 0.4, [...] % (Auto) 59.7, Lymph % (Auto) 26.0, [place] % (Auto) 10.5 H, Eos % (Auto) [...] pleural effusion with compressive atelectasis. Reading [facility] Charges/Coding Visit Charges Inpatient E&M: 68968 Init Hosp L2 07/12/24 1015 <Electronically signed by Dian BALDERAS PA-C> Cosigner Signature (if applicable): CC: ALAN Wagner~ Signed [facility] Work Phone: 1(185) 695-483406-04-2025 Radiology [facility] History and physical note Author Melonie De La Rosa [facility] Note Date/Time July 11, 2024 3:21p m [facility] Medical Records Department [address] [place] [address] H&P Exam - Hospitalist 07/11/24 1405 MR#: [id number] Acct: [id number] Name: ANALILIA MELENDREZ Rep #:[id number] : 1960 63 From: Melonie De La Rosa DO PCP: Marianna Wagner TRACTOR CRANE OPERATORMiahC Status:REG E R Location: ED HPI - General General Date of Admission: 07/11/24 Date of Service: 07/11/24 Chief Complaint: Suicidal ideation/nausea vomiting HPI Narrative ANALILIA MELENDREZ, is a 63 M who presented to the emergency department at [facility] on 07/11/2024 with a chief complaint [...] discussed with Dr. Fontanez prior to admission. [facility] Medical History Thrombocytopenia Chronic pancreatitis Macrocytosis [...] reflux #60 tabs 06/27/23 Unknown Rx release fjponi-vvtucjus-vzhjgyp 1 cap PO TIDCM #90 caps /03/04 Unknown Rx 24,000-76,000-120,000 unit capsule,delayed rel (Creon) [...] Clarity Clear, Urine pH 8.0, Ur Specific [place] 1.010, Urine Protein 15 H, Urine Glucose [...] 74.9 H, Lymph % (Auto) 15.4 L, [place] % (Auto) 7.7, Eos % (Auto) 0.4, [...] with compressive atelectasis. Reading Location: [facility] Assessment & Plan Assessment/Plan (1) [...] need ALBERT and probable referral to a [facility] - Outpatient follow-up here with cardiology after [...] Had thoracic dissection and was treated at [facility] History of heroin abuse - Remote [...] Full code Charges/Coding Visit Charges Inpatient E&M: 46619 Init Hosp L2 07/11/24 1521 <Electronically signed by Melonie De La Rosa DO> Cosigner Signature (if applicable): CC: ALAN Wagner; Dr. Melonie De La Rosa DO~ Signed [facility] Work Phone: 1(252) 210-934906-03-2025 Discharge summary Author Perez Ribeiro [facility] Note Date/Time July 11, 2024 2:09p m [facility] Medical Records Department [address] [place] [address] Emergency Department Summary 07/11/24 MR#: [id number] Acct: [id number] Name: ANALILIA MELENDREZ Rep #:[id number] : 1960 63 From: Perez Ribeiro DO PCP: VINOD WildeC Status:REG E R Location: ED HPI History [...] he has also been very nauseous lately. [facility] Medical History Thrombocytopenia Chronic pancreatitis [...] reflux #60 tabs 06/27/23 Unknown Rx release aucghi-ullmxrhn-fbgirfc 1 cap PO TIDCM #90 caps 06/09 [...] following commands knew that he was at [facility] the year is [...] 74.9 H Lymph % (Auto) 15.4 L [place] % (Auto) 7.7 Eos % (Auto) 0.4 [...] Clarity Clear Urine pH 8.0 Ur Specific [place] 1.010 Urine Protein 15 H Urine Glucose [...] with compressive atelectasis. Reading Location: [facility] Discharge Plan Triage Chief Complaint: [...] Marianna Wagner NP Referrals: Marianna Wagner NP, TRACTOR CRANE OPERATOR-C [Primary Care Provider] - Print Language: Emirati Disposition Disposition: Acute Care Hospital [facility] What to do if you have Problems For any increased pain, shortness of breath, bleeding, nausea or vomiting, chestpain, or any unexpected problems, contact your Primary Care Provider. Call [facility] ([phone]) or report to the closest Emergency Room. Call 911 if necessary. 07/11/24 140 <Electronically signed by Perez Ribeiro DO> Cosigner Signature (if applicable): CC: ALAN Wagner ~ Signed [facility] Work Phone: 1(384) 629-691406-03-2025 Discharge summary Author Perez Riberio [facility] Note Date/Time July 11, 2024 2:09p m [facility] Medical Records Department [address] [place] [address] Emergency Department Summary 07/11/24 MR#: [id number] Acct: [id number] Name: SAURAVTIBURCIOJANEENANALILIA JAMARI Rep #:[id number] : 1960 63 From: Perez Ribeiro DO PCP: Marianna Queden, TRACTOR CRANE OPERATOR-C Status:REG E R Location: ED HPI History [...] he has also been very nauseous lately. [facility] Medical History Thrombocytopenia Chronic pancreatitis [...] reflux #60 tabs 06/27/23 Unknown Rx release nmilon-siicmkpu-gfdqvkj 1 cap PO TIDCM #90 caps 06/09 [...] following commands knew that he was at [facility] the year is [...] 74.9 H Lymph % (Auto) 15.4 L [place] % (Auto) 7.7 Eos % (Auto) 0.4 [...] Clarity Clear Urine pH 8.0 Ur Specific [place] 1.010 Urine Protein 15 H Urine Glucose [...] with compressive atelectasis. Reading Location: [facility] Discharge Plan Triage Chief Complaint: [...] Provider: Marianna Wagner NP Referrals: Marianna Wagner TRACTOR CRANE OPERATOR, TRACTOR CRANE OPERATOR-C [Primary Care Provider] - Print Language: Emirati Disposition Disposition: Acute Care Hospital [facility] What to do if you have Problems For any increased pain, shortness of breath, bleeding, nausea or vomiting, chestpain, or any unexpected problems, contact your Primary Care Provider. Call [facility] ([phone]) or report to the closest Emergency Room. Call 911 if necessary. 07/11/24 1409 <Electronically signed by Perez Ribeiro DO> Esmer Signature (if applicable): CC: TRACTOR CRANE OPERATOR-C Marianna Wagner ~ Signed [facility] Work Phone: 1(904) 183-613306-03-2025 Radiology Diagnostic study [facility]06-03-2025 NoteHNO ID: [id number] Author: RADHA ETIENNE RN Service: ? Author Type: Registered Nurse Type: Progress Notes Filed: 07/11/2024 12:49 Note Text: AG TRANSITIONAL CARE MANAGEMENT (TCM) FOLLOW-UP NOTE Patient identified by name and date of : YES Diagnosis: CHF Summary: TCM RN called for TCM f/u (D/C 07/06/24). Pt isn't home at this time. Health leads screening tool questions performed? Addressed 07/07/24 N/A Concerns: N/A Associate Designer plan for next outreach: Will follow-up next wk. Signature: Radha Etienne RN [facility] 11[facility] History of Present illness Narrative* Radha Etienne RN - 07/11/2024 12:34 PM EDT AG TRANSITIONAL CARE MANAGEMENT (TCM) FOLLOW-UP NOTE Patient identified by name and date of : YES Diagnosis: CHF Summary: TCM RN called for TCM f/u (D/C 07/06/24). Pt isn't home at this time. Health leads screening tool questions performed? Addressed 07/07/24 N/A Concerns: N/A Associate Designer plan for next outreach: Will follow-up next wk. Signature: Radha Etienne RN July 11, 2024 documented in this encounterSycam[facility]06-[facility]-2025 NotePatient Outreach (AGACM) ANALILIA MELENDREZ ([id number]) 1960 M Date Time Provider Department 07/11/[address] [facility] During your visit today, we recorded the following information about you: Radha Etienne RN 07/11/2024 12:49 PM Signed AG TRANSITIONAL CARE MANAGEMENT (TCM) FOLLOW-UP NOTE Patient identified by name and date of : YES Diagnosis: CHF Summary: TCM RN called for TCM f/u (D/C 07/06/24). Pt isn't home at this time. Health leads screening tool questions performed? Addressed 07/07/24 N/A Concerns: N/A Associate Designer plan for next outreach: Will follow-up next wk. Signature: Radha Etienne RN July 11, 2024 Allergies As of Date: 07/11/2024 (No Known Allergies) Date Reviewed: 04/12/2024 Reviewed by: Edwards, Vandana - Fully Assessed Reason for Visit: Transition [...] fourteen (14) days to upper arm. - rlwsof-vxxxxgxk-aeeazdv (CREON 36) 36,000-114,000- 180,000 unit delayed release capsule Take 2 pills by mouth with first bite of meal and take 1 pill with snacks. Max 10 per day. - Cholecalciferol, Vitamin D3, (VITAMIN D-3) 50 mcg (2,000 unit) cap Take 1 capsule by mouth once daily. - Blood-Glucose Meter,Continuous (FREESTYLE MANGO 3 READER) [facility] Use to check blood sugar at least [...] (HCC) [I71.9] 08/09/2023 Atherosclerotic heart disease of [place] coronar*01/03/2017 Chronic pancreatitis (HCC) [K86.1] 08/09/2023 Calcium [...] myocardial infarction [I25.2] 05/19 (more content not included)...[facility]05-30-2025 NoteHNO ID: [id number] Author: RADHA ETIENNE RN Service: ? Author Type: Registered Nurse Type: Progress Notes Filed: 07/07/2024 11:25 Note Text: TRANSITIONAL CARE MANAGEMENT (TCM) COMMUNITY MONITORING PROGRAM - [place] SUMMARY: Pt discharged from [facility] on 07/06/24. Admitted for: CHF Non-compliance Patient seen Inpatient TONY Visit? N/A. Patient seen ICARE Program? N/A. Contact made with patient: Yes Hi my name is Radha Etienne RN and I am calling from the [facility] on behalf of your PCP, Marianna Wagner APRN.HIGH SCHO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 I understand you were recently in the [...] like to speak with a social work hat steamer to help give you support for [...] TAKEN: No action required WRAP AROUND SERVICES: Third Officer Referral - Declined Patient educated on importance [...] - encouraged to do so. Radha Etienne, [facility]05-30-2025 History of Present illness Narrative* Radha Etienne, RN - 07/07/2024 10:53 AM EDT TRANSITIONAL CARE MANAGEMENT (TCM) COMMUNITY MONITORING PROGRAM - [place] SUMMARY: Pt discharged from [facility] on 07/06/24. Admitted for: CHF Non-compliance Patient seen Inpatient TONY Visit? N/A. Patient seen ICARE Program? N/A. Contact made with patient: Yes Hi my name is Radha Etienne RN and I am calling from the [facility] on behalf of your PCP, Marianna Wagner APRN.HIGH SCHO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 I understand you were recently in the [...] like to speak with a social work hat steamer to help give you support for [...] TAKEN: No action required WRAP AROUND SERVICES: Third Officer Referral - Declined Patient educated on importance [...] so. Radha Etienne RN documented in this encounterSycamore [facility] Center05-30-2025 NotePatient Outreach (AGACM) ANALILIA MELENDREZ ([id number]) 1960 M Date Time Provider Department 07/07/[address] [facility] During your visit today, we recorded the following information about you: Radha Etienne, ELIS 07/07/2024 11:25 AM Signed TRANSITIONAL CARE MANAGEMENT (TCM) COMMUNITY MONITORING PROGRAM - [place] SUMMARY: Pt discharged from [facility] on 07/06/24. Admitted for: CHF Non-compliance Patient seen Inpatient TONY Visit? N/A. Patient seen ICARE Program? N/A. Contact made with patient: Yes Hi my name is Radha Etienne RN and I am calling from the [facility] on behalf of your PCP, Marianna Wagner APRN.HIGH SCHO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 I understand you were recently in the [...] like to speak with a social work hat steamer to help give you support for [...] TAKEN: No action required WRAP AROUND SERVICES: Third Officer Referral - Declined Patient educated on importance [...] Visit: Transition Of Care [4074] Cmt: Andres D/C 07/06/24 Prescriptions as of [...] MEAL - ramipril (ALTACE) (more content not included)...[facility] 07-06-[address] [facility]05-28-2025 Progress note [facility] Note Date/Time July 05, 2024 1:44p [facility] Medical Records Department [address] [place] [address] Progress Note - Hospitalist 07/05/24 1119 MR#: [id number] Acct: [id number] Name: ANALILIA MELENDREZ Rep #:[id number] : 1960 63 From: Chris de la cruz DO PCP: ALAN Wilde Status:ADM I N Location: [place] [address] Reason for Visit Reason for Visit: Diagnoses [...] Antibody < 0.2, Sm (Khalil) Antibody <0.2, RE RECORDING MIXER Antibody <0.2, Scl-70 Scleroderma Ab <0.2, Double [...] is a 63-year-old male who presented to [facility] ED on 06/30/2024 with worsening abdominal [...] 35 minutes. Charges/Coding Visit Charges Inpatient E&M: 74182 Subs Hosp L2 07/05/24 1344 <Electronically signed by Chris Aragon DO> Cosigner Signature (if applicable): CC: ~ Signed [facility] Work Phone: 1(218) 620-319005-27-2025 Progress note Author Antony Espitia [facility] Note Date/Time July 04, 2024 5:44p m [facility] Medical Records Department [address] [place] [address] Progress Note 07/04/24 1741 MR#: [id number] Acct: [id number] Name: ANALILIA MELENDREZ Rep #:[id number] : 1960 63 From: Antony Espitia DO PCP: VINOD WildeC Status:ADM I N Location: [place] [address] Assessment & Plan Assessment/Plan (1) Chronic pancreatitis: [...] workup. Poor prognosis. Visit Charges Inpatient E&M: 35915 Subs Hosp L3 07/04/24 1744 <Electronically signed by Antony Espitai DO> Antony Espitia DO Cosigner Signature (if applicable): CC: ~ Signed [facility] Work Phone: 1(939) 362-221005-27-2025 Progress note Author Chris Aragon [facility] Note Date/Time July 04, 2024 12:39 pm [facility] Medical Records Department [address] [place] [address] Progress Note - Hospitalist 07/04/24 1135 MR#: [id number] Acct: [id number] Name: ANEESHANALILIACULLEN KAUFFMAN Rep #:[id number] : 1960 63 From: Chris de la cruz DO PCP: ALAN Wilde Status:ADM I N Location: [place] [address] Reason for Visit Reason for Visit: Diagnoses [...] Total Protein Cancelled, Urine Albumin Cancelled, U Udyxr-2-Gtzuzdmp Cancelled, U Yihaw-4-Loqnpsxf Cancelled, U Beta Globulin Cancelled, U Gamma Globulin Cancelled, U PEP M-Herb Cancelled, Urine Immunofixation Cancelled, Urine HELENA Interpret Cancelled, Ur Immunofix PEP Note Cancelled, RAMANA-1 Antibody TNP, Sm (Khalil) Antibody TNP, RE RECORDING MIXER Antibody TNP, Scl-70 Scleroderma Ab TNP, Antichromatin [...] is a 63-year-old male who presented to [facility] ED on 06/30/2024 with worsening abdominal [...] 35 minutes. Charges/Coding Visit Charges Inpatient E&M: 03259 Subs Hosp L2 07/04/24 1239 <Electronically signed by Chris Aragon DO> Cosigner Signature (if applicable): CC: ~ Signed [facility] Work Phone: 1(579) 344-591505-27-2025 Consult note Author Yaneli Carbone [facility] Note Date/Time July 04, 2024 10:59 am [facility] Medical Records Department [address] [place] [address] Consultation - Cardiology 07/04/24 1030 MR#: [id number] Acct: [id number] Name: ANALILIA MELENDREZ Rep #:[id number] : 1960 63 From: Yaneli Carbone MD PCP: Marianna Wagner TRACTOR CRANE OPERATOR-C Status:ADM I N Location: [place] [address] Assessment & Plan Assessment/Plan (1) Pancytopenia: (2) [...] a redo valve using bovine valve at [facility]. As well he had a pacemaker. He [...] discuss further plan he does have established workers compensation analyst at [facility] But the patient would like to follow-up here with the cardiac team at [facility]. Yaneli Carbone MD,[facility] HPI Consult Data Date of Consult: 07/04/24 HPI Narrative Reason for Consultation: Moderate LV systolic dysfunction/moderate/severe bioprosth. aortic stenosis HPI Narrative: ANALILIA MELENDREZ, is a 63 M who presents [facility] Medical History (Updated 07/03/24 @ 14:55 [...] reflux #60 tabs 06/27/23 Unknown Rx release dutxvj-kclyzwpv-warmqxh 1 cap PO TIDCM #90 caps 06/09 [...] Cardio Cardio Narrative: Review of the monitoring specialist showed paced atrial rhythm Cardiac exam S1-S2 [...] Total Protein Cancelled, Urine Albumin Cancelled, U Nhfta-4-Mzojdsje Cancelled, U Vftxy-4-Jyaooque Cancelled, U Beta Globulin Cancelled, U Gamma Globulin Cancelled, U PEP M-Herb Cancelled, Urine Immunofixation Cancelled, Urine HELENA Interpret Cancelled, Ur Immunofix PEP Note Cancelled, RAMANA-1 Antibody TNP, Sm (Khalil) Antibody TNP, RE RECORDING MIXER Antibody TNP, Scl-70 Scleroderma Ab TNP, Antichromatin [...] Carbone MD> Cosigner Signature (if applicable): CC: TRACTOR CRANE OPERATOR-C Marianna Wagner; Dr. Conrado Pro DO~ Signed [facility] Work Phone: 1(737) 628-793905-26-2025 Progress note Author [facility] Note Date/Time July 03, 2024 2:55p m [facility] Medical Records Department [address] [place] [address] Progress Note - Hospitalist 07/03/24 1032 MR#: [id number] Acct: [id number] Name: ANALILIA MELENDREZ Rep #:[id number] : 1960 63 From: Chris de la cruz DO PCP: ALAN Wiled Status:ADM I N Location: [place] [address] Reason for Visit Reason for Visit: Diagnoses [...] is a 63-year-old male who presented to [facility] ED on 06/30/2024 with worsening abdominal [...] 35 minutes. Charges/Coding Visit Charges Inpatient E&M: 78432 Subs Hosp L2 07/03/24 2100 <Electronically signed by Chris Aragon DO> Cosigner Signature (if applicable): CC: ~ Signed [facility] Work Phone: 1(725) 286-107205-26-2025 Consult note Author Antony Friend [facility] Note Date/Time July 03, 2024 11:50 am [facility] Medical Records Department [address] [place] [address] Consultation - GI 07/03/24 1127 MR#: [id number] Acct: [id number] Name: ANALILIA MELENDREZ Rep #:[id number] : 1960 63 From: Antony Friend DO PCP: Marianna Wagner TRACTOR CRANE OPERATOR-C Status:ADM I N Location: [place] [address] HPI Consult Data Date of Consult: 07/03/24 [...] history, including gastrointestinal bleeding or liver disease. [facility] Medical History (Updated 07/03/24 @ 11:34 [...] (1/2 x 25 mg) PO D AILY 04/11/24 Unknown Rx diuretic #30 tabs thiamine HCl (vitamin B1) 100 mg 100 mg PO DAILYCM vit padilla #0 tabs 05/20/23 Unknown Rx tablet (Vitamin B-1) pantoprazole 40 mg tablet,delayed 40 mg PO BID reflux #60 tabs 06/27/23 Unknown Rx release fjsskn-awsikfyl-oqcawbm 1 cap PO TIDCM #90 caps 06/09 [...] sodium restriction Charges/Coding Visit Charges Inpatient E&M: 79573 Init Hosp L3 07/03/24 1150 <Electronically signed by Antony Espitia DO> Cosigner Signature (if applicable): CC: ALAN Wagner; Dr. Conrado Pro DO~ Signed [facility] Work Phone: 1(852) 409-147105-25-2025 Progress note Author Melonie De La Rosa [facility] Note Date/Time July 02, 2024 11:47 am [facility] Medical Records Department [address] [place] [address] Progress Note - Hospitalist 07/02/24 0712 MR#: [id number] Acct: [id number] Name: ANALILIA MELENDREZ Rep #:[id number] : 1960 63 From: Melonie De La Rosa DO PCP: Marianna Wagner TRACTOR CRANE OPERATOR-C Status:ADM I N Location: [place] [address] Reason for Visit Reason for Visit: Abdominal [...] Had thoracic dissection and was treated at [facility] History of heroin abuse - Remote - patient states he has been clean for approximately 10 years Tobacco abuse - Encouraged cessation - nicotine patch replacement available DVT prophylaxis -Platelet count remains greater than 70,000 -Start enoxaparin 40 daily CODE STATUS - Full code Charges/Coding Visit Charges Inpatient E&M: 03124 Subs Hosp L2 07/02/24 1147 <Electronically signed by Melonie De La Rosa DO> Cosigner Signature (if applicable): CC: ~ Signed [facility] Work Phone: 1(275) 921-749705-24-2025 Progress note Author Melonie De La Rosa [facility] Note Date/Time July 01, 2024 1:59p m [facility] Medical Records Department [address] [facility] [place] [address] Progress Note - Hospitalist 07/01/24 0749 MR#: [id number] Acct: [id number] Name: ANALILIA MELENDREZ Rep #:[id number] : 1960 63 From: Melonie De La Rosa DO PCP: ALAN Wilde Status:ADM I N Location: [place] [address] Reason for Visit Reason for Visit: Abdominal [...] 75.0 H, Lymph % (Auto) 14.4 L, [place] % (Auto) 9.1, Eos % (Auto) 0.3, [...] Alkaline Phosphatase 117, [place] [address] H, Total Protein 5.1 L, Albumin 2.5 L, Globulin 2.6, Lipase 6 L, Ethyl Alcohol < 10.1 06/30/24 16:50: Urine Color Yellow, Urine Clarity Sl. Cloudy, Urine pH 6.0, Ur Specific [place] 1.020, Urine Protein 30 H, Urine Glucose [...] % (Auto) 68.9, Lymph % (Auto) 19.3, [place] % (Auto) 9.8, Eos % (Auto) 1.0, [...] 5. Sequela of chronic pancreatitis. Reading Location: [id number] Chest X-Ray 06/30/24 17:05 IMPRESSION: 1. Moderate bilateral pleural effusions. 2. Linear opacity at the left mid lung zone may represent extension of pleural fluid, atelectasis, or infection. 3. Nodular opacities at the right perihilar region, possibly calcified lymph nodes. Consider CT Chest if patient has risk factors for malignancy. 4. Cardiomegaly. Reading Location: [id number] Physical Exam Const alert, oriented x3, no [...] Had thoracic dissection and was treated at [facility] History of heroin abuse - Remote - patient states he has been clean for approximately 10 years Tobacco abuse - Encouraged cessation - nicotine patch replacement available DVT prophylaxis -Platelet count remains greater than 70,000 -Start enoxaparin 40 daily CODE STATUS - Full code Charges/Coding Visit Charges Inpatient E&M: 97998 Subs Hosp L2 07/01/24 8662 <Electronically signed by Melonie De La Rosa DO> Nixonigner Signature (if applicable): CC: ~ Signed [facility] Work Phone: 1(353) 636-372305-24-2025 Procedure [facility] 07-01-2024 History and physical note Author Conrado Fraser [facility] Note Date/Time July 01, 2024 6:46a m [facility] Medical Records Department [address] [place] [address] H&P Exam - Hospitalist 06/30/24 193 MR#: [id number] Acct: [id number] Name: ANALILIA MELENDREZ JAMARI Rep #:[id number] : 1960 63 From: Conrado Gonzalez DO PCP: ALAN Wilde Status:ADM I N Location: [place] [address] HPI - General General Date of Admission: [...] metformin, diabetic neuropathy; on gabapentin, CAD; s/p NM, history of mechanical aortic valve replacement (2014) followed by bioprosthetic aortic valve replacement (~2016), history of SSS; s/p PPM (2017), history of RBBB, history of NSVT, history of AAA, history of thoracic aortic aneurysm with dissection (~2005 & ~2016 at [facility]), chronic EtOH abuse; with patient admitting [...] furosemide and spironolactone who now re-presents to [facility] ER complaining of SOB, abdominal pain [...] to previousCT on June 22, 2024 with gnbcmbgm-dd-zmovt volume ascites, unchanged in addition to moderate [...] is expected to extend beyond 2 midnights. [facility] Medical History MALIK (acute kidney injury) [...] reflux #60 tabs 06/27/23 Unknown Rx release nakmto-gyxxopob-ssbsmmp 1 cap PO TIDCM #90 caps 06/09 [...] 75.0 H, Lymph % (Auto) 14.4 L, [place] % (Auto) 9.1, Eos % (Auto) 0.3, [...] Sl. Cloudy, Urine pH 6.0, Ur Specific [place] 1.020, Urine Protein 30 H, Urine Glucose [...] 5. Sequela of chronic pancreatitis. Reading Location: [id number]-C Chest X-Ray 06/30/24 17:05 IMPRESSION: 1. Moderate bilateral pleural effusions. 2. Linear opacity at the left mid lung zone may represent extension of pleural fluid, atelectasis, or infection. 3. Nodular opacities at the right perihilar region, possibly calcified lymph nodes. Consider CT Chest if patient has risk factors for malignancy. 4. Cardiomegaly. Reading Location: [id number] Assessment & Plan Assessment/Plan (1) Volume overload: [...] - Resume current regimen. 12. CAD; s/p NM - Stable. 13. History of mechanical aortic valve replacement (2014) followed by bioprosthetic aortic valve replacement (~2016) - Noted. 14. History of SSS; s/p PPM (2016) - Noted. 15. History of RBBB - Noted. 16. History of NSVT - Noted. 17. History of AAA - Stable. 18. History of thoracic aortic aneurysm with dissection (~2005 & ~2016 at [facility]) - Stable. 19. History of MALIK [...] 75 minutes. Charges/Coding Visit Charges Inpatient E&M: 20398 Init Hosp L3 07/01/24 0646 <Electronically signed by Conrado Pro DO> Cosigner Signature (if applicable): CC: ALAN Wagner; Dr. Conrado Pro, ~ Signed [facility] Work Phone: 1(240) 437-357705-24-2025 Discharge summary Author Narendra Gonzalez [facility] Note Date/Time June 30, 2024 11:11 pm [facility] Medical Records Department [address] [place] [address] Emergency Department Summary 06/30/24 MR#: [id number] Acct: [id number] Name: ANALILIA MELENDREZ Rep #:[id number] : 1960 63 From: Narendra Rosado PCP: Marianna Queden, TRACTOR CRANE OPERATOR-C Status:ADM I N Location: [facility] [id number]- 1 HPI HPI - GI History of Present [...] [facility] Later in his ED course after he has had some time to think about it he states that he is not sure if he is taking any diuretics. He states he remembers taking some tramadol that was prescribed but does not recall anything that would make him urinate. [facility] Medical History MALIK (acute kidney [...] reflux #60 tabs 06/27/23 Unknown Rx release zrpvkd-feuisrtm-fejuitv 1 cap PO TIDCM #90 caps 06/09 [...] 75.0 H Lymph % (Auto) 14.4 L [place] % (Auto) 9.1 Eos % (Auto) 0.3 [...] Sl. Cloudy Urine pH 6.0 Ur Specific [place] 1.020 Urine Protein 30 H Urine Glucose [...] factors for malignancy. 4. Cardiomegaly. Reading Location: [id number]-[id number] Management Discussion w/another healthcare provider: Hospitalist Discharge Plan Dx/Rx/DC Orders Clinical Impression: Ascites due to alcoholic cirrhosis, Pleural effusion, Hypoxia, Volume overload,MALIK (acute kidney injury) Disposition Disposition: Acute Care Hospital [facility] What to do if you have Problems For any increased pain, shortness of breath, bleeding, nausea or vomiting, chestpain, or any unexpected problems, contact your Primary Care Provider. Call [facility] ([phone]) or report to the closest Emergency Room. Call 911 if necessary. 06/30/24 1268 <Electronically signed by Narendra Gonzalez DO> Cosigner Signature (if applicable): CC: TRACTOR CRANE OPERATOR-Stephen Wagner ~ Signed [facility] Work Phone: 1(615) 486-271605-23-2025 Radiology Diagnostic study [facility]05-23-2025 Radiology Diagnostic study [facility]05-22-2025 NoteHNO ID: [id number] Author: YESSICA UMANA LPN Service: ? Author Type: LICENSED NURSE Type: Progress Notes Filed: 06/29/2024 09:30 Note Text: TRANSITIONAL CARE MANAGEMENT (TCM) COMMUNITY MONITORING PROGRAM - [place] Provider Action/FYI: Per pt he needs to cancel appointment for today as he does not have away to the appointment today. Per pt he will call back to reschedule. SUMMARY: Pt discharged from [facility] on 06/28/2024. Admitted for: Ascites due to alcoholic cirrhosis Patient seen Inpatient TONY Visit? N/A. Patient seen ICARE Program? N/A. Contact made with patient: Yes Hi my name is Yessica Umana LPN and I am calling from the [facility] on behalf of your PCP, Marianna Wagner APRN.HIGH SCHO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 I understand you were recently in the [...] like to speak with a social work hat steamer to help give you support for [...] present (or call on the way if possible).[place] [address]-22-2025 NotePatient Outreach (AGFAMPLE) ANALILIA MELENDREZ ([id number]) 1960 M Date Time Provider Department 06/29/24 MARIANNA WAGNER During your visit today, we recorded the following information about you: Yessica Umana LPN 06/29/2024 9:30 AM Signed TRANSITIONAL CARE MANAGEMENT (TCM) COMMUNITY MONITORING PROGRAM - [place] Provider Action/FYI: Per pt he needs to cancel appointment for today as he does not have away to the appointment today. Per pt he will call back to reschedule. SUMMARY: Pt discharged from [facility] on 06/28/2024. Admitted for: Ascites due to alcoholic cirrhosis Patient seen Inpatient TONY Visit? N/A. Patient seen ICARE Program? N/A. Contact made with patient: Yes Hi my name is Yessica Umana LPN and I am calling from the [facility] on behalf of your PCP, Marianna Wagner APRN.HIGH SCHO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 I understand you were recently in the [...] like to speak with a social work hat steamer to help give you support for [...] Reviewed: 04/12/2024 Reviewed by: (more content not included)...[facility] 06-28-2024 Consult note [facility] Medical Records Department [address] [place] [address] Anesthesia Postop Eval II 06/27/24 1540 MR#: [id number] Acct: [id number] Name: ANALILIA MELENDREZ Rep #:[id number] : 1960 63 From: Carlos Yanes MD PCP: ALAN Wilde Status:ADM I N Y Race: C Location: [place] [address] 4-1 Anesthesia Postop Eval I Sum Postop [...] Carlos Lyman Signature: Date CC: ~ Signed [facility]05-21-2025 Discharge summary Author Melonie De La Rosa [facility] Note Date/Time June 28, 2024 1:27p [facility] Medical Records Department [address] [place] [address] Discharge Summary 06/28/24 1200 MR#: [id number] Acct: [id number] Name: ANALILIA MELENDREZ Rep #:[id number] : 1960 63 From: Melonie De La Rosa DO PCP: ALAN Wilde Status:ADM I N Location: [place] [address] Providers Date of Admission: 06/25/24 Date of Discharge: 06/28/24 Primary Care Physician: ALAN Wilde Consultations 06/26/24 00:39 Consult: Gastroenterology Routine Consulting Provider: [facility] Reason for Consult: Chronic diarrhea with [...] mg PO BID reflux #60 tabs 06/27/23 mqabsz-vsyvesqy-zxfklch 24,000-76,000-120,000 unit capsule,delayed rel (Creon) 1cap PO TIDCM #90 caps 06/28/24 tramadol 50 mg tablet 50 mg PO Q8H PRN pain #9 tabs 06/28/24 Hospital Course Operations None Procedures EGD, EKG, Paracentesis and - (Gallbladder ultrasound/CT abdomen pelvis) Summary of Care Provided Minutes Spent on Discharge: 42 Hospital Course: Mr. Melendrez is a 63-year-old white male who presented to the emergency department at [facility] on 06/26/2023 with a chief complaint of abdominal pain and chronic diarrhea. Patient reported that symptoms began several months prior to admission with chronic diarrhea. He reported he had an outpatient workup to include an EGD and colonoscopy in March 2024 done by at [facility]. This was done for anemia. 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 Melonie De La Rosa DO; Antony Espitia DO~ Signed [facility] Work Phone: 1(339) 446-615305-21-2025 Discharge summary [facility] Medical Records Department [address] [place] [address] Discharge Summary 06/28/24 1200 MR#: [id number] Acct: [id number] Name: ANALILIA MELENDREZ Rep #:[id number] : 1960 63 From: Melonie De La Rosa DO PCP: ALAN Wilde Status:ADM I N Location: [place] [address] Providers Date of Admission: 06/25/24 Date of Discharge: 06/28/24 Primary Care Physician: ALAN Wilde Consultations 06/26/24 00:39 Consult: Gastroenterology Routine Consulting Provider: [facility] Reason for Consult: Chronic diarrhea with [...] pen (Lantus Solostar U-100 Insulin) 10 unit [id number] DIABETES 11/14/22 metformin 500 mg tablet,extended release [...] mg PO BID reflux #60 tabs 06/27/23 mtkgmb-lohpxrjb-xvrsqko 24,000-76,000-120,000 unit capsule,delayed rel (Creon) 1cap PO TIDCM #90 caps 06/28/24 tramadol 50 mg tablet 50 mg PO Q8H PRN pain #9 tabs 06/28/24 Hospital Course Operations None Procedures EGD, EKG, Paracentesis and - (Gallbladder ultrasound/CT abdomen pelvis) Summary of Care Provided Minutes Spent on Discharge: 42 Hospital Course: Mr. Melendrez is a 63-year-old white male who presented to the emergency department at [facility] on 06/26/2023 with a chief complaint of abdominal pain and chronic diarrhea. Patient reported that symptoms began several months prior to admission with chronic diarrhea. He reported he had an outpatient workup to include an EGD and colonoscopy in March 2024 done by at [facility]. This was done for anemia. 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 Melonie De La Rosa DO; Antony Espitia DO~ Signed [facility]05-21-2025 [facility] Progress note Author Melonie De La Rosa [facility] Note Date/Time June 27, 2024 6:19p m [facility] Medical Records Department [address] [place] [address] Progress Note - Hospitalist 06/27/24 0737 MR#: [id number] Acct: [id number] Name: ANALILIA MELENDREZ Rep #:[id number] : 1960 63 From: Melonie De La Rosa DO PCP: ALAN Wilde Status:ADM I N Location: [place] [address] Reason for Visit Reason for Visit: Abdominal [...] % (Auto) 63.2, Lymph % (Auto) 25.4, [place] % (Auto) 8.9, Eos % (Auto) 1.1, [...] mL of light colored fluid. 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, does not appear acutely ill [...] Had thoracic dissection and was treated at [facility] History of heroin abuse - Remote -patient states he has been clean for approximately 10 years Tobacco abuse - Encouraged cessation - nicotine patch replacement available DVT prophylaxis -Platelet count remains greater than 70,000 -Continue Lovenox 40 subcu daily CODE STATUS - Full code Charges/Coding Visit Charges Inpatient E&M: 79804 Subs Hosp L2 06/27/24 1819 <Electronically signed by Melonie De La Rosa DO> Cosigner Signature (if applicable): CC: ~ Signed [facility] Work Phone: 1(552) 358-523105-20-2025 Progress note [facility] Medical Records Department [address] [place] [address] Progress Note - Hospitalist 06/27/24 0737 MR#: [id number] Acct: [id number] Name: ANALILIA MELENDREZ Rep #:[id number] : 1960 63 From: Melonie De La Rosa DO PCP: ALAN Wilde Status:ADM I N Location: [place] [address] Reason for Visit Reason for Visit: Abdominal [...] 0.23, AST 49 H, ALT 27, Alkaline Qklwmkemsnz68, Total Protein 4.2 L, Albumin 2.0 L, [...] % (Auto) 63.2, Lymph % (Auto) 25.4, [place] % (Auto) 8.9, Eos % (Auto) 1.1, [...] mL of light colored fluid. 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, does not appear acutely ill [...] Had thoracic dissection and was treated at [facility] History of heroin abuse - Remote -patient states he has been clean for approximately 10 years Tobacco abuse - Encouraged cessation - nicotine patch replacement available DVT prophylaxis -Platelet count remains greater than 70,000 -Continue Lovenox 40 subcu daily CODE STATUS - Full code Charges/Coding Visit Charges Inpatient E&M: 59650 Subs Hosp L2 06/27/24 1819 Cosigner Signature (if applicable): CC: ~ Signed [facility]05-20-2025 Consult note Author Carlos Yanes [facility] Note Date/Time June 28, 2024 3:08p m [facility] Medical Records Department [address] [place] [address] Anesthesia Postop Eval II 06/27/24 1540 MR#: [id number] Acct: [id number] Name: ANALILIA MELENDREZ Rep #:[id number] : 1960 63 From: Carlos Yanes MD PCP: Marianna Wagner NP-C Status:ADM I N Y Race: C Location: [place] [address] 4-1 Anesthesia Postop Eval I Sum Postop [...] MD Cosigner Signature: Date CC: ~ Signed [facility] Work Phone: 1(217) 445-208905-20-2025 Consult note Author Wilma Ribeiro [facility] Note Date/Time June 27, 2024 3:17p m [facility] Medical Records Department [address] [place] [address] Anesthesia Postop Eval I 06/27/241515 MR#: [id number] Acct: [id number] Name: ANALILIA MELENDREZ Rep #:[id number] : 1960 63 From: Wilma Ribeiro PCP: ALAN Wilde Status:ADM I N Y Race: C Location: [address] Anesthesia: Postop Eval I Current Vital Signs [...] 1 completed: Yes 06/27/241516 <Electronically signed by Wilma Ribeiro > Date _ Wilma Lyman Signature: Date CC: ~ Signed [facility] Work Phone: 1(958) 313-366105-20-2025 Consult note Author Carlos Yanes [facility] Note Date/Time June 27, 2024 2:53p [facility] Medical Records Department [address] [place] [address] Pre-Anesthesia Evaluation 06/27/24 145 MR#: [id number] Acct: [id number] Name: ANALILIA MELENDREZ Rep #:[id number] : 1960 63 From: Carlos Yanes MD PCP: Marianna Wagner TRACTOR CRANE OPERATOR-C Status:ADM I N Y Race: C Location: [place] [address] 4-1 ASA Classification* ASA Classification ASA Classification: 3 [...] Procedure(s): EGD 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: 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 Hx Hospitalization No 05/09/20 19:26 Any Problems [...] take am of surgery PONV PONV - log haul chain feeder: PONV - log haul chain feeder Female HX of Motion Sickness HX of N/V After Surgery Non-Smoker Duration of Surgery greater than 60 minutes Number of Risk Factors PONV Score Height & Weight Height & Weight: Anesthesia: Height & Weight Height 5 ft 11 in 06/26/24 22:53 Weight: 75.2 kg 06/27/24 05:39 Body Mass Index (BMI) 23.2 06/27/24 05:39 Respiratory Assessment Respiratory Assessment - log haul chain feeder: Respiratory Tract Infection Hx - log haul chain feeder Hx Respiratory Tract Infection No 06/26/24 22:53 STOP Sleep Apnea STOP Sleep Apnea - log haul chain feeder: STOP Sleep Apnea - log haul chain feeder Hx Hypertension Yes 06/26/24 00:18 Hx Sleep [...] Tobacco Use History Tobacco Use History - log haul chain feeder: Tobacco Use History - log haul chain feeder Tobacco Use Smoking Status Current every day smoker 06/26/24 03:49 Hx Tobacco Use Yes 06/26/24 00:18 Years Smoking Packs Smoked per Day Smoking Cessation Date was within the last 15 years Hx Smoking Cessation Date Hx Smoking Cessation No 06/26/24 00:18 Counseling Hematologic Medial History Hematologic Hx - log haul chain feeder: Hematologic Medical Hx - clinical documentation developer [...] confused, unrespo /Reproduction History /Reproductive History - log haul chain feeder: /Reproductive Hx- log haul chain feeder Hx Now No 06/26/24 22:53 Gestational Age [...] Glycerin/Hypromellose/Polyethylene 2 drp 06/26/24 21:37 06/27/24 12:22 Glycerin/Hypromellose/Znv365 15 Ml Bottle EACH EYE 2 drp [...] mls @ 15 mls/hr 06/26/24 06:11 IV .[id number] PRN Saline Flush Sodium Chloride 250 mls @ 15 mls/hr 06/26/24 06:11 IV .[id number] PRN Additional IVPB Infusion Lactated Ringer's 1,000 mls @ 15 mls/hr 06/27/24 14:15 06/27/24 14:26 IV 15 mls/hr .Q48H KUNAL Administration Insulin Glargine 5 unit 06/26/24 12:00 06/27/24 12:21 Insulin Glargine-Yfgn 100 Unit/Ml Pen SC Not Given 1200 [facility] Insulin Human Lispro 0 unit 06/26/24 00:39 06/27/24 12:20 Insulin Lispro 100 Unit/Ml Insuln.Pen SC Not Given Q6 [facility] Protocol Lorazepam 0.5 mg 06/26/24 00:39 Lorazepam 2 Mg/Ml Wch Syringe IV Q4H PRN PRN AGITATION Melatonin 6 mg 06/26/24 22:22 06/26/24 22:52 Melatonin 3 Mg Tablet PO 6 mg QHS PRN PRN Administration SLEEP Metoprolol Succinate 25 mg 06/26/24 10:00 06/27/24 08:19 Metoprolol(Xl)Succ 25 Mg Tablet PO Not Given BID [facility] Protocol Morphine Sulfate 2 mg 06/26/24 00:39 06/26/24 01:59 Morphine 2 Mg/Ml Syringe IV 2 mg Q4H PRN PRN Administration Pain Score 6-10 Multivitamins 1 tablet 06/26/24 08:00 06/27/24 08:16 Multivitamins,Therapeutic Tablet [facility] Nicotine 14 mg 06/26/24 00:39 06/27/24 08:18 Nicotine 14 Mg Patch TD 14 mg DAILY [facility] Administration Ondansetron HCl 4 mg 06/26/24 00:39 Ondansetron 4 Mg/2 Ml Vial IV Q8H PRN PRN NAUSEA/VOMITING Pancrelipase 1 cap 06/27/24 08:00 06/27/24 12:20 Creon 24,[address] Capsule PO Not Given TIDCM [facility] Pantoprazole Sodium 40 mg 06/26/24 22:00 06/27/24 08:19 Pantoprazole Sodium 40 Mg Tablet PO Not Given BID [facility] Polyethylene Glycol 17 gm 06/26/24 12:45 06/27/24 08:18 Polyethylene Glycol 3350 17 Gm Packet PO Not Given BID [facility] Promethazine HCl 25 mg 06/26/24 00:39 Promethazine [...] 25 Mg Tablet PO Not Given DAILY [facility] Protocol Thiamine HCl 100 mg 06/26/24 08:00 06/27/24 08:17 Thiamine Hydrochloride 100 Mg Tablet [facility] History MALIK (acute kidney injury) [...] no additional complaints, except as documented. 06/27/24 6773 <Electronically signed by Carlos Yanes MD > Date _ Carlos Yanes MD Cosigner Signature: Date CC: ~ Signed [facility] Work Phone: 1(779) 338-947205-20-2025 Progress note Author Antony Friend [facility] Note Date/Time June 27, 2024 2:46p m [facility] Medical Records Department [address] [facility] [place] [address] Progress Note 06/27/24 1444 MR#: [id number] Acct: [id number] Name: ANALILIA MELENDREZ Rep #:[id number] : 1960 63 From: Antony Espitia DO PCP: ALAN Wilde Status:ADM I N Location: [place] [address] Progress Note Patient is for upper endoscopy [...] ASA of 3. Visit Charges Inpatient E&M: 54867 Subs Hosp L3 06/27/24 4286 <Electronically signed by Antony Espitia DO> Antony Espitia DO Cosignalex Signature (if applicable): CC: ~ Signed [facility] Work Phone: 1(212) 775-863805-20-2025 Consult note [facility] Medical Records Department [address] [place] [address] Anesthesia Postop Eval I 06/27/241515 MR#: [id number] Acct: [id number] Name: ANALILIA MELENDREZ Rep #:[id number] : 1960 63 From: Wilma Ribeiro PCP: ALAN Wilde Status:ADM I N Y Race: C Location: [place] [address] Anesthesia: Postop Eval I Current Vital Signs [...] Wilma Lyman Signature: Date CC: ~ Signed [facility]05-20-2025 Procedure note [facility] Medical Records Department [address] [place] [address] EGD Report MR#: [id number] Acct: [id number] Name: ANALILIA MELENDREZ Rep #:[id number] : 1960 63 From: Antony Espitia DO [...] pathology results. Procedure Code(s): --- Professional --- 98926, Small intestinal endoscopy, enteroscopy beyond second portion of duodenum, not including ileum; with biopsy, single or multiple CPT copyright 2021 [employer]. All rights reserved. The codes documented in this report are preliminary and upon social worker delinquency prevention review may be revised to meet current compliance requirements. Antony Espitia DO 06/27/2024 3:14:55 PM This report has been signed electronically. Number of Addenda: 0 Note Initiated On: 06/27/2024 2:47 PM 06/27/24 2555 Date _ Antony Espinosa Signature: Date (if indicated) CC: ALAN Wagner; Antony Espitia DO ~ Date Dictated: 06/27/24 1447 Date Transcribed: Cnc Maintenance Mechanic: RF Signed [facility]05-20-2025 Procedure note [facility] Medical Records Department [address] [facility] [place] [address] Operative Report - CC Letter MR#: [id number] Acct: [id number] Name: ANALILIA MELENDREZ Rep #:[id number] : 1960 63 From: Antony Espitia DO PCP: ALAN Wilde Status:ADM I N 06/27/2024 Alan Wilde Re : Upper GI endoscopy procedure for Analilia Aneesh Wagner This procedure was performed on Thursday, [...] PM This report has been signed electronically. 06/27/241514 Date _ Antony Friend DO Cosigner Signature: Date (if indicated) CC: TRACTOR CRANE OPERATOR-C Marianna Wagner; Dr. Rolan Romero, DO; Dr. Conrado Pro, DO; Dr. Melonie De La Rosa, DO ~ Date Dictated: 06/27/24 1447 Date Transcribed: Cnc Maintenance Mechanic: RF Signed [facility]05-20-2025 Consult note [facility] Medical Records Department [address] [place] [address] Pre-Anesthesia Evaluation 06/27/24 1452 MR#: [id number] Acct: [id number] Name: ANALILIA MELENDREZ Rep #:[id number] : 1960 63 From: Carlos Yanes MD PCP: ALAN Wilde Status:ADM I N Y Race: C Location: [place] [address] ASA Classification* ASA Classification ASA Classification: 3 [...] 05:00 06/27/24 Phosphorus 2.7 mg/dL (2.7-4.5) 06/27/24 05:06/27/24 BUN 7 mg/dL (4-19) 06/27/24 05:00 06/27/24 Creatinine 1.07 mg/dL (0.70-1.20) 06/27/24 05:00 06/27/24 Glucose 134 mg/dL (70-99) H 06/27/24 05:00 06/27/24 POC Glucose 111 mg/dL (74-106) H 06/27/24 12:18 06/27/24 TSH 1.740 uIU/mL (0.300-4.200) 06/26/24 05:06/08 COAG PT 17.4 SECONDS (11.7-14.9) H 06/27/24 05:06/09 Pre-Assessment Diagnosis/Proposed Procedure Planned Operative Procedure(s): EGD 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: 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 Hx Hospitalization No 05/09/20 19:26 Any Problems [...] take am of surgery PONV PONV - log haul chain feeder: PONV - log haul chain feeder Female HX of Motion Sickness HX of N/V After Surgery Non-Smoker Duration of Surgery greater than 60 minutes Number of Risk Factors PONV Score Height & Weight Height & Weight: Anesthesia: Height & Weight Height 5 ft 11 in 06/26/24 22:53 Weight: 75.2 kg 06/27/24 05:39 Body Mass Index (BMI) 23.2 06/27/24 05:39 Respiratory Assessment Respiratory Assessment - log haul chain feeder: Respiratory Tract Infection Hx - log haul chain feeder Hx Respiratory Tract Infection No 06/26/24 22:53 STOP Sleep Apnea STOP Sleep Apnea - log haul chain feeder: STOP Sleep Apnea - log haul chain feeder Hx Hypertension Yes 06/26/24 00:18 Hx Sleep [...] Tobacco Use History Tobacco Use History - log haul chain feeder: Tobacco Use History - log haul chain feeder Tobacco Use Smoking Status Current every day smoker 06/26/24 03:49 Hx Tobacco Use Yes 06/26/24 00:18 Years Smoking Packs Smoked per Day Smoking Cessation Date was within the last 15 years Hx Smoking Cessation Date Hx Smoking Cessation No 06/26/24 00:18 Counseling Hematologic Medial History Hematologic Hx - log haul chain feeder: Hematologic Medical Hx - clinical documentation developer [...] confused, unrespo /Reproduction History /Reproductive History - log haul chain feeder: /Reproductive Hx- log haul chain feeder Hx Now No 06/26/24 22:53 Gestational Age [...] 10 Mg Tablet PO Not Given DAILY [facility] Dicyclomine HCl 20 mg 06/26/24 07:42 06/26/24 [...] Glycerin/Hypromellose/Polyethylene 2 drp 06/26/24 21:37 06/27/24 12:22 Glycerin/Hypromellose/Hvd901 15 Ml Bottle EACH EYE 2 drp Q1H PRN Administration DRY EYES Hydralazine HCl 5 mg 06/26/24 00:39 Hydralazine 20 Mg/Ml Vial IV Q8H PRN PRN SBP GREATER THAN 160 Protocol Hydralazine HCl 25 mg 06/26/24 14:00 06/27/24 05:04 Hydralazine 25 Mg Tablet PO Not Given TID [facility] Protocol Dextrose 250 mls @ 0 mls/hr 06/26/24 00:39 Dextrose 10%-Water IV .Q0M PRN HYPOGLYCEMIA Protocol As Directed Sodium Chloride 250 mls @ 15 mls/hr 06/26/24 06:11 IV .[id number] PRN Saline Flush Sodium Chloride 250 mls @ 15 mls/hr 06/26/24 06:11 IV .[id number] PRN Additional IVPB Infusion Lactated Ringer's 1,000 mls @ 15 mls/hr 06/27/24 14:15 06/27/24 14:26 IV 15 mls/hr .Q48H KUNAL Administration Insulin Glargine 5 unit 06/26/24 12:00 06/27/24 12:21 Insulin Glargine-Yfgn 100 Unit/Ml Pen SC Not Given 1200 [facility] Insulin Human Lispro 0 unit 06/26/24 00:39 06/27/24 12:20 Insulin Lispro 100 Unit/Ml Insuln.Pen SC Not Given Q6 [facility] Protocol Lorazepam 0.5 mg 06/26/24 00:39 Lorazepam 2 Mg/Ml Wch Syringe IV Q4H PRN PRN AGITATION Melatonin 6 mg 06/26/24 22:22 06/26/24 22:52 Melatonin 3 Mg Tablet PO 6 mg QHS PRN PRN Administration SLEEP Metoprolol Succinate 25 mg 06/26/24 10:00 06/27/24 08:19 Metoprolol(Xl)Succ 25 Mg Tablet PO Not Given BID [facility] Protocol Morphine Sulfate 2 mg 06/26/24 00:39 06/26/24 01:59 Morphine 2 Mg/Ml Syringe IV 2 mg Q4H PRN PRN Administration Pain Score 6-10 Multivitamins 1 tablet 06/26/24 08:00 06/27/24 08:16 Multivitamins,Therapeutic Tablet PO Not Given DAILY K[facility] Nicotine 14 mg 06/26/24 00:39 06/27/24 08:18 Nicotine 14 Mg Patch TD 14 mg DAILY [facility] Administration Ondansetron HCl 4 mg 06/26/24 00:39 Ondansetron 4 Mg/2 Ml Vial IV Q8H PRN PRN NAUSEA/VOMITING Pancrelipase 1 cap 06/27/24 08:00 06/27/24 12:20 Creon 24,[address] Capsule PO Not Given TIDCM [facility] Pantoprazole Sodium 40 mg 06/26/24 22:00 06/27/24 08:19 Pantoprazole Sodium 40 Mg Tablet PO Not Given BID [facility] Polyethylene Glycol 17 gm 06/26/24 12:45 06/27/24 08:18 Polyethylene Glycol 3350 17 Gm Packet PO Not Given BID [facility] Promethazine HCl 25 mg 06/26/24 00:39 Promethazine [...] 25 Mg Tablet PO Not Given DAILY [facility] Protocol Thiamine HCl 100 mg 06/26/24 08:00 06/27/24 08:17 Thiamine Hydrochloride 100 Mg Tablet PO [facility] Medical History MALIK (acute kidney injury) Seizures [...] MD Cosigner Signature: Date CC: ~ Signed [facility]05-20-2025 Progress note [facility] Medical Records Department [address] [place] [address] Progress Note 06/27/24 1444 MR#: [id number] Acct: [id number] Name: ANALILIA MELENDREZ Rep #:[id number] : 1960 63 From: Antony Friend DO PCP: ALAN Wilde Status:ADM I N Location: [place] [address] Progress Note Patient is for upper endoscopy [...] ASA of 3. Visit Charges Inpatient E&M: 70148 Subs Hosp L3 06/27/24 1446 Antony Friend DO Cosigner Signature (if applicable): CC: ~ Signed [facility]05-19-2025 Progress note Author Melonie De La Rosa [facility] Note Date/Time June 26, 2024 7:44p m [facility] Medical Records Department [address] [place] [address] Progress Note - Hospitalist 06/26/24 0734 MR#: [id number] Acct: [id number] Name: ANALILIA MELENDREZ Rep #:[id number] : 1960 63 From: Melonie De La Rosa DO PCP: ALAN Wilde Status:ADM I N Location: [facility]U [id number] Reason for Visit Reason for Visit: Abdominal [...] % (Auto) Cancelled, Lymph % (Auto) Cancelled, [place] % (Auto) Cancelled, Eos % (Auto) Cancelled, [...] Drop Cells Cancelled, Ovalocytes Cancelled, Stomatocytes Cancelled, [place] Bodies Cancelled, Kristofer Cells Cancelled, Bite Cells [...] % (Auto) 65.3, Lymph % (Auto) 22.1, [place] % (Auto) 11.6 H, Eos % (Auto) [...] Clarity Clear, Urine pH 7.0, Ur Specific [place] 1.010, Urine Protein 15 H, Urine Glucose [...] (Auto) 68.4, Lymph % (Auto) 18.4 L, [place] % (Auto) 11.8 H, Eos % (Auto) [...] Had thoracic dissection and was treated at [facility] History of heroin abuse - Remote -patient states he has been clean for approximately 10 years Tobacco abuse - Encouraged cessation - nicotine patch replacement available DVT prophylaxis - Platelet count is 100,000 - Start Lovenox 40 subcu daily CODE STATUS - Full code Charges/Coding Visit Charges Inpatient E&M: 36429 Subs Hosp L2 06/26/241943 <Electronically signed by Melonie De La Rosa DO> Cosigner Signature (if applicable): CC: ~ Signed [facility] Work Phone: 1(791) 513-165505-19-2025 Consult note Author Antony Friend [facility] Note Date/Time June 26, 2024 6:15p m [facility] Medical Records Department [address] [place] [address] Consultation - GI 06/26/24 1758 MR#: [id number] Acct: [id number] Name: ANALILIA MELENDREZ Rep #:[id number] : 1960 63 From: Antony Espitia DO PCP: Marianna Wagner NP-C Status:ADM I N Location: [place] [address] HPI Consult Data Date of Consult: 06/26/24 [...] a SAG gradient could not be calculated. [facility] Medical History MALIK (acute kidney injury) [...] Labs: Laboratory Results - last 24 hr 05/18/25 01:16: Magnesium 1.8 06/25/24 01:58: Lactic Acid [...] % (Auto) 65.3, Lymph % (Auto) 22.1, [place] % (Auto) 11.6 H, Eos % (Auto) [...] Clarity Clear, Urine pH 7.0, Ur Specific [place] 1.010, Urine Protein 15 H, Urine Glucose [...] (Auto) 68.4, Lymph % (Auto) 18.4 L, [place] % (Auto) 11.8 H, Eos % (Auto) [...] lower chance of developing HCC. Reading Location: [facility] Paracentesis Ultrasound 06/26/24 06:00 IMPRESSION: Successful paracentesis with removal of 2050 mL of light colored fluid. [facility] Assessment & Plan Assessment/Plan (1) Chronic [...] this year done by Dr. Vazquez at [facility] for indication of iron deficiency anemia, [...] IV morphine in ER. 12. CAD; s/p NM - Noted. 13. History of mechanical aortic [...] aneurysm with dissection (~2005 & ~2016 at [facility]) - Noted. 19. History of alcoholic [...] 75 minutes. Charges/Coding Visit Charges Inpatient E&M: 45745 Init Hosp L3 06/26/241814 <Electronically signed by Antony Espitia DO> Cosigner Signature (if applicable): CC: ALAN Wagner; Dr. Rolan Romero DO~ Signed [facility] Work Phone: 1(640) 317-443405-19-2025 Progress note [facility] Medical Records Department [address] [place] [address] Progress Note - Hospitalist 06/26/24 0734 MR#: [id number] Acct: [id number] Name: ANALILIA MELENDREZ Rep #:[id number] : 1960 63 From: Melonie De La Rosa DO PCP: ALAN Wilde Status:ADM I N Location: [place] [address] Reason for Visit Reason for Visit: Abdominal [...] % (Auto) Cancelled, Lymph % (Auto) Cancelled, [place] % (Auto) Cancelled, Eos % (Auto) Cancelled, [...] Drop Cells Cancelled, Ovalocytes Cancelled, Stomatocytes Cancelled, [place] Bodies Cancelled, Kristofer Cells Cancelled, Bite Cells [...] % (Auto) 65.3, Lymph % (Auto) 22.1, [place] % (Auto) 11.6 H, Eos % (Auto) [...] Clarity Clear, Urine pH 7.0, Ur Specific [place] 1.010, Urine Protein 15 H, Urine Glucose [...] (Auto) 68.4, Lymph % (Auto) 18.4 L, [place] % (Auto) 11.8 H, Eos % (Auto) [...] Had thoracic dissection and was treated at [facility] History of heroin abuse - Remote -patient states he has been clean for approximately 10 years Tobacco abuse - Encouraged cessation - nicotine patch replacement available DVT prophylaxis - Platelet count is 100,000 - Start Lovenox 40 subcu daily CODE STATUS - Full code Charges/Coding Visit Charges Inpatient E&M: 39058 Subs Hosp L2 06/26/241943 Cosigner Signature (if applicable): CC: ~ Signed [facility]05-19-2025 Consult note [facility] Medical Records Department [address] [place] [address] Consultation - GI 06/26/24 1758 MR#: [id number] Acct: [id number] Name: ANALILIA MELENDREZ Rep #:[id number] : 1960 63 From: Antony Espitia DO PCP: Marianna Wagner TRACTOR CRANE OPERATOR-C Status:ADM I N Location: [place] [address] HPI Consult Data Date of Consult: 06/26/24 [...] a SAG gradient could not be calculated. [facility] Medical History MALIK (acute kidney injury) [...] % (Auto) 65.3, Lymph % (Auto) 22.1, [place] % (Auto) 11.6 H, Eos % (Auto) [...] Clarity Clear, Urine pH 7.0, Ur Specific [place] 1.010, Urine Protein 15 H, Urine Glucose [...] (Auto) 68.4, Lymph % (Auto) 18.4 L, [place] % (Auto) 11.8 H, Eos % (Auto) [...] chance of developing HCC. Reading Location: [facility] Paracentesis Ultrasound 06/26/24 06:00 IMPRESSION: Successful paracentesis with removal of 2050 mL of light colored fluid. Reading Location: [facility] Assessment & Plan Assessment/Plan (1) Chronic alcohol [...] this year done by Dr. Vazquez at [facility] for indication of iron deficiency anemia, [...] IV morphine in ER. 12. CAD; s/p NM - Noted. 13. History of mechanical aortic [...] aneurysm with dissection (~2005 & ~2017 at [facility]) - Noted. 19. History of alcoholic [...] 75 minutes. Charges/Coding Visit Charges Inpatient E&M: 80978 Init Hosp L3 06/26/24 7202 Cosigner Signature (if applicable): CC: ALAN Wagner; Dr. Rolan Romero DO~ Signed [facility]05-19-2025 Radiology Diagnostic study note [facility] Imaging Services [address] [place] [address] Paracentesis with US MR#: [id number] Acct: [id number] Name: ANALILIA MELENDREZ Rep #: [id number] : 1960 M 63 From: Francis Campos MD PCP: ALAN Wilde Status: ADM I N Study:Paracentesis with US Date of Exam: 06/26/24 Exam# [id number] Ordering Dr: Conrado Geronimo DO PROCEDURE: PARACENTESIS WITH US 06/26/2024 REASON FOR EXAM: LARGE ABDOMINAL PELVIC ASCITES W/ CHRONIC ETOH ABU TECHNIQUE: Paracentesis. The procedure as well as the benefits and possible complications including infection were explained to the patient. Informed consent was obtained. The overlying skin was prepped and draped in the usual sterile fashion. Following local anesthetic application, a 5 [place] catheter was placed into the abdomen. 2050 mL of light colored fluid was aspirated. A sample was sent to the laboratory. COMPARISON: None FINDINGS: Successful paracentesis US/Paracentesis with US IMPRESSION: Successful paracentesis with removal of 2050 mL of light colored fluid. Reading Location: [facility] CC: ALAN Wagner; Dr. Conrado Pro DO ~ Cnc Maintenance Mechanic: Signed [facility]05-19-2025 Telephone encounter Note* Telephone Encounter - Marianna Wagner APRN.CNP - 06/26/2024 9:57 AM EDT Will address in next OV. [facility]05-19-2025 Miscellaneous Notes* Telephone Encounter - Marianna Wanger APRN.CNP - 06/26/2024 9:57 AM EDT Will [...] Alc. Andrew Ponce MA [facility] History and physical note Author Conrado Fraser [facility] Note Date/Time June 26, 2024 6:34a m [facility] Medical Records Department [address] [place] [address] H&P Exam - Hospitalist 06/25/242128 MR#: [id number] Acct: [id number] Name: ANALILIA MELENDREZ JAMARI Rep #:[id number] : 1960 63 From: Conrado Gonzalez DO PCP: Marianna Wagner TRACTOR CRANE OPERATORMiahC Status:ADM I N Location: [place] [address] HPI - General General Date of Admission: 06/25/24 Date of Service: 06/25/24 Chief Complaint: Abdominal Pain, Chronic Diarrhea and Chronic EtOH Abuse. HPI Narrative ANALILIA MGTIBURCIOJANEEN, is a 63 M with a past [...] metformin, diabetic neuropathy; on gabapentin, CAD; s/p NM, history of mechanical aortic valve replacement (2014) followed by bioprosthetic aortic valve replacement (~2016), history of SSS; s/p PPM (2017), history of RBBB, history of NSVT, history of AAA, history of thoracic aortic aneurysm with dissection (~2005 & ~2016 at [facility]), chronic EtOHabuse; with patient admitting to ~2-3 forty ounce beers daily on supplemental thiamine and folate, history of alcoholic hepatitis, history of chronic pancreatitis, history of seizures; likely due to EtOH withdrawal, history of MALIK, GERD with hiatal hernia; on pantoprazole twice daily, history of hernia; s/p repair and generalized anxiety who presents to [facility] ERcomplaining of abdominal pain, chronic diarrhea and chronic alcohol abuse. Mr. Melendrez reports his symptoms began several months prior to admission with chronic diarrhea which includes an outpatient workup including EGD and colonoscopy in March of this year done by Dr. Vazquez at [facility] for indication of iron deficiency anemia, [...] is expected to extend beyond 2 midnights. [facility] Medical History MALIK (acute kidney injury) [...] x 10 mg) PO Q6H PRN PRN 04/11/24 Unknown Rx abdominal discomfort #0 caps folic [...] % (Auto) Cancelled, Lymph % (Auto) Cancelled, [place] % (Auto) Cancelled, Eos % (Auto) Cancelled, [...] Drop Cells Cancelled, Ovalocytes Cancelled, Stomatocytes Cancelled, [place] Bodies Cancelled, Kristofer Cells Cancelled, Bite Cells [...] % (Auto) 65.3, Lymph % (Auto) 22.1, [place] % (Auto) 11.6 H, Eos % (Auto) [...] Clarity Clear, Urine pH 7.0, Ur Specific [place] 1.010, Urine Protein 15 H, Urine Glucose [...] March of this year done by Dr. Vzaquez at [facility] for indication of iron deficiency anemia, [...] IV morphine in ER. 12. CAD; s/p NM - Noted. 13. History of mechanical aortic [...] aneurysm with dissection (~2005 & ~2017 at [facility]) - Noted. 19. History of alcoholic [...] 75 minutes. Charges/Coding Visit Charges Inpatient E&M: 95489 Init Hosp 06/26/24 0634 <Electronically signed by Conrado Pro DO> Cosigner Signature (if applicable): CC: ALAN Wagner; Dr. Conrado Pro DO~ Signed [facility] Work Phone: 1(855) 199-208605-19-2025 Telephone encounter Note* Telephone Encounter - Suzi Haynes MA - 06/26/2024 7:16 AM EDT Patient is currently admitted, would you like us to put a new reminder in. Please advise. Suzi Haynes MA [facility]05-19-2025 Telephone encounter Note* Telephone Encounter - Suzi Haynes MA - 06/26/2024 7:16 AM EDT ----- Message from Andrew Horowitz MA sent at 03/28/2024 8:14 AM EST ----- Remind pt. Time to recheck Alc. Andrew Ponce MA [facility]05-19-2025 History and physical note [facility] Medical Records Department [address] [place] [address] H&P Exam - Hospitalist 06/25/242128 MR#: [id number] Acct: [id number] Name: ANALILIA MELENDREZ Rep #:[id number] : 1960 63 From: Conrado Gonzalez DO PCP: Marianna Wagner, TRACTOR CRANE OPERATOR-C Status:ADM I N Location: [place] [address] HPI - General General Date of Admission: [...] metformin, diabetic neuropathy; on gabapentin, CAD; s/p NM, history of mechanical aortic valve replacement (2014) followed by bioprosthetic aortic valve replacement (~2016), history of SSS; s/p PPM (2016), history of RBBB, history of NSVT, history of AAA, history of thoracic aortic aneurysm with dissection (~2005 & ~2016 at [facility]), chronic EtOHabuse; with patient admittingto ~2-3 forty ounce beers daily on supplemental thiamine and folate, history of alcoholic hepatitis, history of chronic pancreatitis, history of seizures; likely due to EtOH withdrawal, history of MALIK , GERD with hiatal hernia; on pantoprazole twice daily, history of hernia; s/p repair and generalized anxiety who presents to [facility] ERcomplaining of abdominal pain, chronic diarrhea and chronic alcohol abuse. Mr. Melendrez reports his symptoms began several months prior to admission with chronic diarrhea which includes an outpatient workup including EGD and colonoscopy in March of this year done by Dr. Vazquez at [facility] for indication of iron deficiency anemia, [...] is expected to extend beyond 2 midnights. [facility] Medical History MALIK (acute kidney injury) [...] % (Auto) Cancelled, Lymph % (Auto) Cancelled, [place] % (Auto) Cancelled, Eos % (Auto) Cancelled, [...] Drop Cells Cancelled, Ovalocytes Cancelled, Stomatocytes Cancelled, [place] Bodies Cancelled, [place] Cells Cancelled, Bite Cells Cancelled, Crenated Cell [...] % (Auto) 65.3, Lymph % (Auto) 22.1, [place] % (Auto) 11.6 H, Eos % (Auto) [...] 0.46, AST 62 H, ALT 32, Alkaline [id number], Total Protein 5.0 L, Albumin 2.5 L, Globulin 2.5, Albumin/Globulin Ratio 1.0, Lipase 6L, b-Hydroxybutyric mmol/L 0.1 06/25/24 19:17: POC Glucose 348 H 06/25/24 19:23: Urine Color Yellow, Urine Clarity Clear, Urine pH 7.0, Ur Specific [place] 1.010, Urine Protein 15 H, Urine Glucose [...] lower chance of developing HCC. Reading Location: [place] Assessment & Plan Assessment/Plan (1) Chronic alcohol [...] this year done by Dr. Vazquez at [facility] for indication of iron deficiency anemia, [...] IV morphine in ER. 12. CAD; s/p NM - Noted. 13. History of mechanical aortic [...] aneurysm with dissection (~2005 & ~2017 at [facility]) - Noted. 19. History of alcoholic [...] 75 minutes. Charges/Coding Visit Charges Inpatient E&M: 74187 Init Hosp L3 06/26/24 0647 Cosigner Signature (if applicable): CC: ALAN Wagner; Dr. Conrado Pro, DO~ Signed [facility]05-19-2025 Discharge summary Author Rolan Romero [facility] Note Date/Time June 25, 2024 11:17 pm [facility] Medical Records Department [address] [place] [address] Emergency Department Summary 06/25/24 MR#: [id number] Acct: [id number] Name: ANALILIA MELENDREZ Rep #:[id number] : 1960 63 From: Rolan crowellett PCP: Marianna Wagner, TRACTOR CRANE OPERATOR-C Status:ADM I N Location: [place] [address] HPI History of Present Illness Chief Complaint: [...] intact Psych: Cooperative, appropriate mood and affect [facility] Medical History MALIK (acute kidney [...] 104 H 74 88 Respiratory Rate 18 Blood Pressure 134/98 H 104/71 Blood [...] had a EGD and colonoscopy done at [facility]. Will Clinisync for these results. Differential [...] % (Auto) Cancelled Lymph % (Auto) Cancelled [place] % (Auto) Cancelled Eos % (Auto) Cancelled [...] Drop Cells Cancelled Ovalocytes Cancelled Stomatocytes Cancelled [place] Bodies Cancelled Gardners Cells Cancelled Bite Cells Cancelled Crenated Cell [...] Color Urine Clarity Urine pH Ur Specific [place] Urine Protein Urine Glucose (UA) Urine Ketones [...] % (Auto) 65.3 Lymph % (Auto) 22.1 [place] % (Auto) 11.6 H Eos % (Auto) [...] Target Cells Tear Drop Cells Ovalocytes Stomatocytes [place] Bodies Gardners Cells Bite Cells Crenated Cell Acanthocytes (Spur) [...] Color Urine Clarity Urine pH Ur Specific [place] Urine Protein Urine Glucose (UA) Urine Ketones [...] (Auto) Neut % (Auto) Lymph % (Auto) [place] % (Auto) Eos % (Auto) Baso % [...] Target Cells Tear Drop Cells Ovalocytes Stomatocytes [place] Bodies Kristofer Cells Bite Cells Crenated Cell Acanthocytes (Spur) Rouleaux Schistocytes Sodium Potassium Chloride Carbon Dioxide Anion Gap BUN Creatinine Estim Creat Clear Calc Est GFR (MDRD) Non-Af BUN/Creatinine Ratio Glucose Lactic Acid Calcium Magnesium Total Bilirubin AST ALT Alkaline Phosphatase Total Protein Albumin Globulin Albumin/Globulin Ratio Lipase b-Hydroxybutyric mmol/L Urine Color Yellow Urine Clarity Clear Urine pH 7.0 Ur Specific [place] 1.010 Urine Protein 15 H Urine Glucose [...] Provider: Marianna Wagner NP Referrals: Marianna Wagner TRACTOR CRANE OPERATOR, TRACTOR CRANE OPERATOR-C [Primary Care Provider] - Print Language: Emirati What to do if you have Problems For any increased pain, shortness of breath, bleeding, nausea or vomiting, chestpain, or any unexpected problems, contact your Primary Care Provider. Call [facility] ([phone]) or report to the closest Emergency Room. Call 911 if necessary. 06/25/24 8658 <Electronically signed by Rolan Romero DO> Cosigner Signature (if applicable): CC: ALAN Wagner ~ Signed [facility] Work Phone: 1(917) 839-440705-19-2025 Evaluation note* Diagnosis Onset Date Resolution Status [...] Chronic pancreatitis chronic June 25, 2024 10:15pm [facility] Work Phone: 1(974) 261-950205-19-2025 Evaluation note* Diagnosis Onset Date Resolution Status [...] 30, 2024 7:47pm Thrombocytopenia inactive June 7:47pm [facility] Work Phone: 1(485) 613-253705-19-2025 Evaluation note* Diagnosis Onset Date Resolution Status [...] 2024 2:06pm Suicidal ideation acute July 2:06pm [facility] Work Phone: 1(317) 133-346405-19-2025 Evaluation note* Diagnosis Onset Date Resolution Status [...] 2024 2:06pm Suicidal ideation acute July 2:06pm [facility] Work Phone: 1(609) 135-874305-19-2025 Evaluation note* Diagnosis Onset Date Resolution Status [...] 2024 2:06pm Suicidal ideation resolved July 2:06pm [facility] [employer] Work Phone: 1(104) 638-907205-19-2025 Evaluation note* Diagnosis Onset Date Resolution Status [...] 8:44pm History of aortic aneurysm repair [place] August 01, 2024 8:44pm Hypoxia acute August 01 8:44pm Elevated troponin resolved August 012024 8:44pm [facility] Work Phone: 1(209) 485-981805-19-2025 Evaluation note* Diagnosis Onset Date Resolution Status [...] hepatic disorder acute August 29, 2024 12:38am [facility] Work Phone: 1(975) 165-214805-19-2025 Evaluation note* Diagnosis Onset Date Resolution Status Admit Date Chronic pancreatitis chronic June 25, 2024 10:15pm Adverse drug reaction resolved June 25, 2024 10:15pm Hypokalemia resolved June 25 10:15pm Lactic acidosis resolved June 25, 2024 10:15pm Ascites due to alcoholic cirrhosis inactive June 25, 2024 1 0:15pm Chronic alcohol abuse inactive June 25, 2024 10:15pm Chronic diarrhea inactive June 10:15pm Macrocytosis associated with alcohol inactive June 25, 2024 1 0:15pm Thrombocytopenia inactive June 10:15pm Chronic pancreatitis chronic June 30, 2024 7:47pm Abdominal ascites resolved June 7:47pm Acute HFrEF [...] cirrhosis inactive June 30, 2024 7 :47pm Malnutrition inactive June 30 7:47pm Medically noncompliant [...] 2024 8:44pm History of aortic aneurysm repair inactive August 01, 2024 8:44pm History of diabetes mellitus acute August 29, 2024 12:33am Medically noncompliant acute Ju ly 2024 12:33am Pleural effusion associated with hepatic disorder acute August 29, 2024 12:33am Protein-calorie malnutrition , severe acute August 29, 2024 12:33am Chronic pancreatitis chronic August 29, 2024 12:33am Abdominal ascites resolved August 292024 12:33am Pleural effusion resolved August 12:33am Chronic pancreatitis due to chronic alcoholism inactive August 29 12:33am Malnutrition inactive August 29, 025 12:33am Pancytopenia inactive August 29 025 12:33am Pleural effusion associated with hepatic disorder acute September 28 1:07pm Protein-calorie malnutrition , severe acute September 28 1:07pm Chronic pancreatitis chronic 2024 1:07pm [place] [employer] Work Phone: 1(110) 446-176505-19-2025 Evaluation note* Diagnosis Onset Date Resolution Status Admit Date Chronic pancreatitis chronic June 25, 2024 10:15pm Adverse drug reaction resolved June 25, 2024 10:15pm Hypokalemia resolved June 25 10:15pm Lactic acidosis resolved June 25, 2024 10:15pm Ascites due to alcoholic cirrhosis inactive June 25, 2024 10:15pm Chronic alcohol abuse inactive June 25, 2024 10:15pm Chronic diarrhea inactive June 10:15pm Macrocytosis associated with alcohol inactive June 25, 2024 10:15pm Thrombocytopenia inactive June 10:15pm Chronic pancreatitis chronic June 30, 2024 7:47pm Abdominal ascites resolved June 7:47pm Acute HFrEF [...] cirrhosis inactive June 30, 2024 7 :47pm Malnutrition inactive June 30 7:47pm Medically noncompliant inactive Ma y 2024 7:47pm Pancytopenia inactive June 30 7:47pm Thrombocytopenia inactive June 7:47pm Abdominal pain resolved July 11, 2024 2:06pm Headache resolved July 11, 2024 2:06pm Nausea resolved July 11, 2024 2:06pm Nausea & vomiting resolved July 2:06pm Partial bowel obstruction resolved July 11, 2024 2:06pm Suicidal ideation resolved July 2:06pm History of aortic aneurysm repair ch ronic August 01, 2024 8:44pm Acute HFrEF (heart failure w ith reduced ejection fraction) resolved August 01, 2024 8:44pm Elevated troponin resolved August 012024 8:44pm Hypoxia resolved August 01 8:44pm H/O aortic valve replacement inactiv e August 01, 2024 8:44pm History of diabetes mellitus acute August 29, 2024 12:33am Medically noncompliant acute Ju ly 2024 12:33am Pleural effusion associated with hepatic disorder acute August 29, 2024 12:33am Protein-calorie malnutrition , severe acute August 29, 2024 12:33am Chronic pancreatitis chronic August 29, 2024 12:33am Abdominal ascites resolved August 292024 12:33am Pleural effusion resolved August 12:33am Chronic pancreatitis due to chronic alcoholism inactive August 29 12:33am Malnutrition inactive August 29, 12:33am Pancytopenia inactive August 29 025 12:33am Pleural effusion associated with hepatic disorder acute September 28 1:07pm Protein-calorie malnutrition , severe acute September 28 1:07pm Chronic pancreatitis chronic Augu st 2024 1:07pm History of aortic valve replacement with bioprosthetic valve acute October 10 2:05pm SVT (supraventricular tachycardia) acute October 10 2:05pm Cardiac pacemaker in situ 2017 chronic October 10, 2024 2:05pm Essential hypertension chronic Se pt2024 2:05pm History of aortic aneurysm repair ch ronic October 10, 2024 2:05pm Pure hypercholesterolemia chronic October 10, 2024 2:05pm Acute exacerbation of chroni c heart failure acute October 12 025 4:09pm [facility] Work Phone: 1(295) 505-179305-18-2025 Discharge summary [facility] Medical Records Department [address] [place] [address] Emergency Department Summary 06/25/24 MR#: [id number] Acct: [id number] Name: ANALILIA MELENDREZ Rep #:[id number] : 1960 63 From: Rolan stock DO PCP: ALAN Wilde Status:ADM I N Location: [place] [address] HPI History of Present Illness Chief Complaint: [...] intact Psych: Cooperative, appropriate mood and affect [facility] Medical History MALIK (acute kidney [...] had a EGD and colonoscopy done at [facility]. Will Clinisync for these results. Differential [...] % (Auto) Cancelled Lymph % (Auto) Cancelled [place] % (Auto) Cancelled Eos % (Auto) Cancelled [...] Drop Cells Cancelled Ovalocytes Cancelled Stomatocytes Cancelled [place] Bodies Cancelled Kristofer Cells Cancelled Bite Cells [...] Color Urine Clarity Urine pH Ur Specific [place] Urine Protein Urine Glucose (UA) Urine Ketones [...] % (Auto) 65.3 Lymph % (Auto) 22.1 [place] % (Auto) 11.6 H Eos % (Auto) [...] Target Cells Tear Drop Cells Ovalocytes Stomatocytes [place] Bodies Gardners Cells Bite Cells Crenated Cell Acanthocytes (Spur) [...] Color Urine Clarity Urine pH Ur Specific [place] Urine Protein Urine Glucose (UA) Urine Ketones [...] (Auto) Neut % (Auto) Lymph % (Auto) [place] % (Auto) Eos % (Auto) Baso % [...] Target Cells Tear Drop Cells Ovalocytes Stomatocytes [place] Bodies Kristofer Cells Bite Cells Crenated Cell Acanthocytes (Spur) Rouleaux Schistocytes Sodium Potassium Chloride Carbon Dioxide Anion Gap BUN Creatinine Estim Creat Clear Calc Est GFR (MDRD) Non-Af BUN/Creatinine Ratio Glucose Lactic Acid Calcium Magnesium Total Bilirubin AST ALT Alkaline Phosphatase Total Protein Albumin Globulin Albumin/Globulin Ratio Lipase b-Hydroxybutyric mmol/L Urine Color Yellow Urine Clarity Clear Urine pH 7.0 Ur Specific [place] 1.010 Urine Protein 15 H Urine Glucose [...] Marianna Wagner NP Referrals: Marianna Wagner NP, TRACTOR CRANE OPERATOR-C [Primary Care Provider] - Print Language: Emir[place] What to do if you have Problems For any increased pain, shortness of breath, bleeding, nausea or vomiting, chestpain, or any unexpected problems, contact your Primary Care Provider. Call [facility] ([phone]) or report tothe closest Emergency Room. Call 911 if necessary. 06/25/24 0836 Cosigner Signature (if applicable): CC: ALAN Wagner ~ Signed [facility]05-18-2025 Radiology Diagnostic study note [facility] Imaging Services [address] [place] [address] Abdomen/Pelvis W IV Cont ONLY MR#: [id number] Acct: [id number] Name: ANALILIA MELENDREZ Rep #: [id number] : 1960 M 63 From: Lawanda Bernstein MD PCP: ALAN Wilde Status: REG E R Study:Abdomen/Pelvis W IV Cont ONLY Date of E xam: 06/25/24 Exam# [id number] Ordering Dr: Rolan De Souza DO PROCEDURE: [...] of developing HCC. Reading Location: [facility] CC: TRACTOR CRANE OPERATOR-C Marianna Wagner; Dr. Rolan Romero DO ~ Cnc Maintenance Mechanic: Signed [facility]05-18-2025 Discharge summary Author Rolan Romero [facility] Note Date/Time June 25, 2024 11:17 pm [facility] Medical Records Department [address] [place] [address] Emergency Department Summary 06/25/24 MR#: [id number] Acct: [id number] Name: ANALILIA MELENDREZ Rep #:[id number] : 1960 63 From: Rolan stock DO PCP: ALAN Wilde Status:ADM I N Location: [place] [address] HPI History of Present Illness Chief Complaint: [...] intact Psych: Cooperative, appropriate mood and affect [facility] Medical History MALIK (acute kidney [...] had a EGD and colonoscopy done at [facility]. Will Clinisync for these results. Differential [...] % (Auto) Cancelled Lymph % (Auto) Cancelled [place] % (Auto) Cancelled Eos % (Auto) Cancelled [...] Drop Cells Cancelled Ovalocytes Cancelled Stomatocytes Cancelled [place] Bodies Cancelled Gardners Cells Cancelled Bite Cells Cancelled Crenated Cell [...] Color Urine Clarity Urine pH Ur Specific [place] Urine Protein Urine Glucose (UA) Urine Ketones [...] % (Auto) 65.3 Lymph % (Auto) 22.1 [place] % (Auto) 11.6 H Eos % (Auto) [...] Target Cells Tear Drop Cells Ovalocytes Stomatocytes [place] Bodies Kristofer Cells Bite Cells Crenated Cell [...] Color Urine Clarity Urine pH Ur Specific [place] Urine Protein Urine Glucose (UA) Urine Ketones [...] (Auto) Neut % (Auto) Lymph % (Auto) [place] % (Auto) Eos % (Auto) Baso % [...] Target Cells Tear Drop Cells Ovalocytes Stomatocytes [place] Bodies Gardners Cells Bite Cells Crenated Cell Acanthocytes (Spur) Rouleaux Schistocytes Sodium Potassium Chloride Carbon Dioxide Anion Gap BUN Creatinine Estim Creat Clear Calc Est GFR (MDRD) Non-Af BUN/Creatinine Ratio Glucose Lactic Acid Calcium Magnesium Total Bilirubin AST ALT Alkaline Phosphatase Total Protein Albumin Globulin Albumin/Globulin Ratio Lipase b-Hydroxybutyric mmol/L Urine Color Yellow Urine Clarity Clear Urine pH 7.0 Ur Specific [place] 1.010 Urine Protein 15 H Urine Glucose [...] Provider: Marianna Wagner NP Referrals: Marianna Wagner TRACTOR CRANE OPERATOR, TRACTOR CRANE OPERATOR-C [Primary Care Provider] - Print Language: [place] What to do if you have Problems For any increased pain, shortness of breath, bleeding, nausea or vomiting, chestpain, or any unexpected problems, contact your Primary Care Provider. Call [facility] ([phone]) or report to the closest Emergency Room. Call 911 if necessary. 06/25/24 4336 <Electronically signed by Rolan Romero DO> Cosigner Signature (if applicable): CC: TRACTOR CRANE OPERATORAstrid Wagner ~ Signed [facility] Work Phone: [phone]) 302-536205-14-2025 Telephone encounter Note* Telephone Encounter - Andrew Ponce MA - 06/21/2024 2:32 PM EDT Pt. Lm on stating awhile back you put him on antibiotics for a UTI and he would like a refill. Please advise. Andrew Ponce MA [facility]05-14-2025 Miscellaneous Notes* Telephone Encounter - Andrew Ponce MA - 06/21/2024 2:32 PM EDT Pt. Lm on stating awhile back you put him on antibiotics for a UTI and he would like a refill. Please advise. Andrew Ponce MA documented in this encounterSycamore [facility] Center04-21-2025 Telephone encounter Note * Telephone Encounter - Suzi Haynes MA - 05/29/2024 9:06 AM EDT pharmacy electronically requesting refills as follows: Last seen 12/27/23 . Last refill metoprolol 04/10/24, pantoprazole 02/21/24 . Requested Prescriptions Pending Prescriptions Disp Refills metoprolol tartrate, short acting, (LOPRESSOR) 50 mg tablet [Pharmacy Med Name: METOPROLOL [id number] TABS] 60 tablet 0 Sig: TAKE ONE TABLET BY MOUTH TWICE A DAY pantoprazole DR (PROTONIX) 40 mg tablet [Pharmacy Med Name: PANTOPRAZOLE SODIUM 40MG TBEC] 60 tablet 2 Sig: TAKE ONE TABLET BY MOUTH TWICE A DAY 3O MINUTES BEFORE MEAL Please review and advise. Suzi Haynes MA [facility]04-21-2025 Miscellaneous Notes* Telephone Encounter - Suzi Haynes MA - 05/29/2024 9:06 AM EDT pharmacy electronically requesting refills as follows: Last seen 12/27/23 . Last refill metoprolol 04/10/24, pantoprazole 02/21/24 . Requested Prescriptions Pending Prescriptions Disp Refills metoprolol tartrate, short acting, (LOPRESSOR) 50 mg tablet [Pharmacy Med Name: METOPROLOL [id number] TABS] 60 tablet 0 Sig: TAKE ONE TABLET BY MOUTH TWICE A DAY pantoprazole DR (PROTONIX) 40 mg tablet [Pharmacy Med Name: PANTOPRAZOLE SODIUM 40MG TBEC] 60 tablet 2 Sig: TAKE ONE TABLET BY MOUTH TWICE A DAY 3O MINUTES BEFORE MEAL Please review and advise. Suzi Haynes MA documented in this encounterSycam[facility] Center04-07-2025 Telephone encounter Note * Telephone Encounter - Andrew Ponce MA - 05/15/2024 8:01 AM EDT pharm requesting refills: Last office visit 12/27/2023. Last refill 04/10/2024 nov none Requested Prescriptions Pending Prescriptions Disp Refills ramipril (ALTACE) 10 mg capsule [Pharmacy Med Name: RAMIPRIL 10MG CAPS] 30 capsule 0 Sig: TAKE ONE CAPSULE BY MOUTH EVERY DAY Please review and advise. Andrew Ponce MA [facility]04-07-2025 Miscellaneous Notes* Telephone Encounter - Andrew Ponce MA - 05/15/2024 8:01 AM EDT pharm requesting refills: Last office visit 12/27/2023. Last refill 04/10/2024 nov none Requested Prescriptions Pending Prescriptions Disp Refills ramipril (ALTACE) 10 mg capsule [Pharmacy Med Name: RAMIPRIL 10MG CAPS] 30 capsule 0 Sig: TAKE ONE CAPSULE BY MOUTH EVERY DAY Please review and advise. 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 He denies other symptoms patient would like to know if he needs a med change Giulia Rogel MA documented in this encounterSycamore [facility] Center03-05-20[facility] History of Present illness Narrative* [...] ascending aorta repair Hyperlipidemia Hypertension Non-ST elevation NM (NSTEMI) (HCC) 06/24 Pacemaker Paroxysmal atrial fibrillation (HCC) RBBB (right bundle branch block) S/P aortic valve replacement [facility] mechanical Syncope Tachy-fernando syndrome (HCC) Tobacco abuse chronic Tobacco user Type 2 diabetes mellitus (HCC) PAST SURGICAL HISTORY Procedure Laterality Date ABD AORTIC ANEURYSM REPAIR ASCENDING AORTA GRAFT W/AORTIC ROOT COLONOSCOPY SCREENING In [place] COLONOSCOPY SCREENING 04/05/2024 Internal hemorrhoids, poor prep [...] BY MOUTH EVERY DAY 90 tablet 1 nchedb-euixfumw-[id number] (CREON 36) 36,000-114,000- 180,000 unit delayed release [...] 4 Blood-Glucose Meter,Continuous (FREESTYLE MANGO 3 READER) [facility] [place] check blood sugar at least [...] or concerns in the meantime. Vandana Edwards APRN.HIGH SCHO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 I spent a total of 30 minutes on the date of the service which included preparing to see the patient, [id number] patient care, completing clinical documentation, counseling and [...] evaluation of this patient. documented in this encounterSycamore Medical Center03-03-2025 Telephone encounter Note * Telephone Encounter - [...] 50 mg tablet [Pharmacy Med Name: METOPROLOL [id number] TABS] 60 tablet 0 Sig: TAKE ONE TABLET BY MOUTH TWICE A DAY ramipril (ALTACE) 10 mg capsule [Pharmacy Med Name: RAMIPRIL 10MG CAPS] 30 capsule 0 Sig: TAKE ONE CAPSULE BY MOUTH EVERY DAY Please review and advise. Suzi Haynes MA [facility]03-03-2025 Miscellaneous Notes* Telephone Encounter - Suzi Haynes [...] 50 mg tablet [Pharmacy Med Name: METOPROLOL [id number] TABS] 60 tablet 0 Sig: TAKE ONE TABLET BY MOUTH TWICE A DAY ramipril (ALTACE) 10 mg capsule [Pharmacy Med Name: RAMIPRIL 10MG CAPS] 30 capsule 0 Sig: TAKE ONE CAPSULE BY MOUTH EVERY DAY Please review and advise. Suzi Haynes MA documented in this encounterSycamore Medical Center02-26-2025 Attending History and physical note* Phoebe Vazquez MD - 04/05/2024 2:15 PM EST UPDATED HISTORY AND PHYSICAL EXAMINATION SERVICE DATE: 04/05/2024 SERVICE TIME: 12:15 Participation of a fellow, resident, medical student, or advanced practice provider student in performing the sensitive examination was discussed with the patient or authorized clearance representative. The patient or authorized clearance representative has agreed to proceed with the [...] [facility] / Outside records reviewed. Latest Ref [facility] 10/15/2023 WBC 3.70 - 11.00 k/uL 4.67 [...] Abs Lymph 1.00 - 4.00 k/uL 1.82 [place]% % 11.0 Abs [place] <0.87 k/uL 0.51 Eosin% % 0.0 Abs [...] ascending aorta repair Hyperlipidemia Hypertension Non-ST elevation NM (NSTEMI) (HCC) 06/24 Pacemaker Paroxysmal atrial fibrillation (HCC) RBBB (right bundle branch block) S/P aortic valve replacement [employer]. Wero mechanical Syncope Tachy-fernando syndrome (HCC) Tobacco abuse chronic Tobacco user Type 2 diabetes mellitus (HCC) PAST SURGICAL HISTORY PAST SURGICAL HISTORY Procedure Laterality Date ABD AORTIC ANEURYSM REPAIR ASCENDING AORTA GRAFT W/AORTIC ROOT COLONOSCOPY SCREENING In [place] CORONARY ARTERY BYPASS GRAFT HX 2017 2005 HEART CATHETERIZATION 06/24/2016 HEART VALVE REPLACEMENT 2017 Aortic x2 ;2015 HERNIA REPAIR HX PACEMAKER 06/25/2016 REPLACEMENT AORTIC VALVE W BYPASS Allergies: ALLERGIES ALLERGIES No Known Allergies Medications: CURRENT MEDICATIONS Insulin [place], Disposable, (BD ULTRA-FINE NORBERTO PEN NEEDLE) 32 [...] meals and 1 pill with snacks - zmomef-rsvyeuld-swfhacl (CREON 36) 36,000-114,000- 180,000 unit delayed release [...] the patient has no further questions. . [facility] Work Phone: 1(835) 914-762702-26-2025 History and physical note* Phoebe Vazquez MD [...] Abs Lymph 1.00 - 4.00 k/uL 1.82 [place]% % 11.0 Abs [place] <0.87 k/uL 0.51 Eosin% % 0.0 Abs [...] ascending aorta repair Hyperlipidemia Hypertension Non-ST elevation NM (NSTEMI) (HCC) 06/24 Pacemaker Paroxysmal atrial fibrillation (HCC) RBBB (right bundle branch block) S/P aortic valve replacement St. Wero mechanical Syncope Tachy-fernando syndrome (HCC) Tobacco abuse chronic Tobacco user Type 2 diabetes mellitus (HCC) PAST SURGICAL HISTORY PAST SURGICAL HISTORY Procedure Laterality Date ABD AORTIC ANEURYSM REPAIR ASCENDING AORTA GRAFT W/AORTIC ROOT COLONOSCOPY SCREENING In [place] CORONARY ARTERY BYPASS GRAFT HX 2016 2005 HEART CATHETERIZATION 06/24/2016 HEART VALVE REPLACEMENT 2017 Aortic x2 ;2014 HERNIA REPAIR HX PACEMAKER 06/25/2016 REPLACEMENT AORTIC VALVE W BYPASS Allergies: ALLERGIES ALLERGIES No Known Allergies Medications: CURRENT MEDICATIONS Insulin [place], Disposable, (BD ULTRA-FINE NORBERTO PEN NEEDLE) 32 [...] daily. Blood-Glucose Meter,Continuous (FREESTYLE MANGO 3 READER) [facility] [place] check blood sugar at least [...] meals and 1 pill with snacks - htrnux-ddozxibq-narouoa (CREON 36) 36,000-114,000- 180,000 unit delayed release [...] the patient has no further questions. . [facility]02-26-[facility]25 History and physical note* Phoebe Vazquez MD - 04/05/2024 2:15 PM EST UPDATED HISTORY AND PHYSICAL EXAMINATION SERVICE DATE: 04/05/2024 SERVICE TIME: 12:15 Participation of a fellow, resident, medical student, or advanced practice provider student in performing the sensitive examination was discussed with the patient or authorized clearance representative. The patient or authorized clearance representative has agreed to proceed with the [...] Abs Lymph 1.00 - 4.00 k/uL 1.82 [place]% % 11.0 Abs [place] <0.87 k/uL 0.51 Eosin% % 0.0 Abs [...] ascending aorta repair Hyperlipidemia Hypertension Non-ST elevation NM (NSTEMI) (HCC) 06/24 Pacemaker Paroxysmal atrial fibrillation (HCC) RBBB (right bundle branch block) S/P aortic valve replacement St. Wero mechanical Syncope Tachy-fernando syndrome (HCC) Tobacco abuse chronic Tobacco user Type 2 diabetes mellitus (HCC) PAST SURGICAL HISTORY PAST SURGICAL HISTORY Procedure Laterality Date ABD AORTIC ANEURYSM REPAIR ASCENDING AORTA GRAFT W/AORTIC ROOT COLONOSCOPY SCREENING In [place] CORONARY ARTERY BYPASS GRAFT HX 2016 2005 HEART CATHETERIZATION 06/24/2016 HEART VALVE REPLACEMENT 2017 Aortic x2 ;2014 HERNIA REPAIR HX PACEMAKER 06/25/2016 REPLACEMENT AORTIC VALVE W BYPASS Allergies: ALLERGIES ALLERGIES No Known Allergies Medications: CURRENT MEDICATIONS Insulin [place], Disposable, (BD ULTRA-FINE NORBERTO PEN NEEDLE) 32 [...] daily. Blood-Glucose Meter,Continuous (FREESTYLE MANGO 3 READER) [facility] [place] check blood sugar at least [...] meals and 1 pill with snacks - wpevlp-ytnptyns-rpyiiog (CREON 36) 36,000-114,000- 180,000 unit delayed release [...] Abs Lymph 1.00 - 4.00 k/uL 1.82 [place]% % 11.0 Abs [place] <0.87 k/uL 0.51 Eosin% % 0.0 Abs [...] ascending aorta repair Hyperlipidemia Hypertension Non-ST elevation NM (NSTEMI) (HCC) 06/24 Pacemaker Paroxysmal atrial fibrillation (HCC) RBBB (right bundle branch block) S/P aortic valve replacement St. Wero mechanical Syncope Tachy-fernando syndrome (HCC) Tobacco abuse chronic Tobacco user Type 2 diabetes mellitus (HCC) PAST SURGICAL HISTORY PAST SURGICAL HISTORY Procedure Laterality Date ABD AORTIC ANEURYSM REPAIR ASCENDING AORTA GRAFT W/AORTIC ROOT COLONOSCOPY SCREENING In [place] CORONARY ARTERY BYPASS GRAFT HX 2016 2005 HEART CATHETERIZATION 06/24/2016 HEART VALVE REPLACEMENT 2017 Aortic x2 ;2015 HERNIA REPAIR HX PACEMAKER 06/25/2016 REPLACEMENT AORTIC VALVE W BYPASS Allergies: ALLERGIES ALLERGIES No Known Allergies Medications: CURRENT MEDICATIONS Insulin [place], Disposable, (BD ULTRA-FINE NORBERTO PEN NEEDLE) 32 [...] daily. Blood-Glucose Meter,Continuous (FREESTYLE MANGO 3 READER) [facility] to check blood sugar at least [...] meals and 1 pill with snacks - ahurwl-mrxdiojz-ivfxafx (CREON 36) 36,000-114,000- 180,000 unit delayed release [...] no further questions. . documented in this encounterSycamore Medical Center02-26-2025 History of Present illness Narrative* Marta Rosado [employer] - 04/05/2024 2:15 PM ESTSummary: Pacemaker Check Pacemaker checked with [employer] and data transmitted. Spoke to rep who will fax report directly tothe floor. Floor notified. documented in this encounterSycamore Medical Center02-26-2025 NoteHNO ID: [id number] Author: MARTA ROSADO [employer] Service: Clinical Cardiology Author Type: [employer] Sales Type: Progress Notes Filed: 04/05/2024 11:41 Note Text: Summary: Pacemaker Check Pacemaker checked with [employer] and data transmitted. Spoke to rep who will fax report directly to the floor. Floor notified.[facility] [id number] Telephone encounter Note* Telephone Encounter - Sigrid Clements RN - 03/31/2024 8:47 AM EST Patient called in and left message, would like to speak to someone regarding medication and prep prior to procedure next week. Attempted callback, no answer, LVM with CB number to office [facility]02-21-2025 Miscellaneous Notes* Telephone Encounter - Sigrid Clements RN - 03/31/2024 8:47 AM EST Patient called in and left message, would like to speak to someone regarding medication and prep prior to procedure next week. Attempted callback, no answer, LVM with CB number to office documented in this encounterSycamore Medical Center02-19-2025 Telephone encounter Note * Telephone Encounter - Tiara Foote - 03/29/2024 1:40 PM EST I called and spoke to Analilia who did not realize he had these appointments scheduled today, he rescheduled for 04/12/24 @ 9:45 am lab work and 10:00 am appointment Tiara Severino [facility]02-19-2025 Miscellaneous Notes* Telephone Encounter - Tiara Foote [...] his scopes ? Thank you, Vandana Edwards APRN.HIGH SCHO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 documented in this encounterSycamore Medical Center02-19-2025 Telephone encounter Note * Telephone Encounter - Vandana Edwards - 03/29/2024 1:08 PM EST Patient was No Show for todays (03/29/2024) appointment. Can we make sure he is rescheduled for labs and OV sometime the first week in april after he has his scopes ? Thank you, Vandana Edwards APRN.HIGH SCHO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 [facility] Work Phone: [phone]) 859-914202-18-2025 Telephone encounter Note* Telephone Encounter - Andrew Ponce MA - 03/28/2024 8:03 AM EST Patient notified . Reminder placed. Andrew Ponce MA [facility]02-18-2025 Miscellaneous Notes* Telephone Encounter - Andrew Ponce [...] Recheck in 3 months. documented in this encounterSycamore Medical Center02-17-2025 Telephone encounter Note * Telephone Encounter - Marianna Wagner APRN.HIGH SCHO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 - 03/27/2024 2:48 PM EST A1C increased to 7.6. Will need to increase his daily Glargine insulin to 15 units daily. I am also going to change him to Metformin XR at 1,000 mg daily. Rx sent in. Recheck in 3 months. [facility]02-14-2025 Telephone encounter Note* Telephone Encounter - Gail Varela - 03/24/2024 11:17 AM EST Thank You Austin! [facility]02-14-2025 Miscellaneous Notes* Telephone Encounter - Gail Varela - 03/24/2024 11:17 AM EST Thank You Austin! * Telephone Encounter - Morenita Manuel RN - 03/24/2024 9:26 AM EST Patient call. EGD/ Colonoscopy with Dr Vazquez 04/05/24. Has questions regarding his prep. Would like a call. Thanks [phone] (home) [phone] (cell) documented in this encounterSycamore Medical Center02-14-2025 Telephone encounter Note * Telephone Encounter - Morenita Manuel RN - 03/24/2024 9:26 AM EST Patient call. EGD/ Colonoscopy with Dr Vazquez 04/05/24. Has questions regarding his prep. Would like a call. Thanks [phone] (home) [phone] (cell) [facility]02-14-2025 Telephone encounter Note* Telephone Encounter - Brandy [...] NAME: Analilia Melendrez DATE: March 24, 2024 [facility] Work Phone: 1(813) 576-166702-14-2025 Miscellaneous Notes* Telephone Encounter - Brandy Motta [...] DATE: March 24, 2024 documented in this encounterSycamore Medical Center02-04-2025 Telephone encounter Note * Telephone Encounter - Emmy Dillon MA - 03/14/2024 3:51 PM EST Spoke with patient about prep instructions. He had to cancel his appointment at [facility] and they will call him tomorrow with a reschedule at [facility]. [facility]02-04-2025 Miscellaneous Notes* Telephone Encounter - Emmy Dillon MA - 03/14/2024 3:51 PM EST Spoke with patient about prep instructions. He had to cancel his appointment at [facility] and they will call him tomorrow with a reschedule at [facility]. * Telephone Encounter - Emmy Dillon [...] advise. Suzi Haynes MA documented in this encounterSycamore Medical Center02-04-2025 Telephone encounter Note * Telephone Encounter - Emmy Dillon MA - 03/14/2024 2:39 PM EST Called home phone number on file and another gentleman answered the phone and said Analilia was not at home. Will again before leaving today. [facility]02-04-2025 Telephone encounter Note* Telephone Encounter - Suzi Haynes MA - 03/14/2024 11:27 AM EST Patient left another message requesting call back regarding prep. Suzi Haynes MA [facility]02-03-2025 Telephone encounter Note* Telephone Encounter - Suzi Haynes MA - 03/13/2024 10:32 AM EST Patient left message stating he scheduled for some procedures on 03/16/24 but does not know when to start the prep. Please advise. Suzi Haynes MA [facility]01-29-2025 Telephone encounter Note* Telephone Encounter - Andrew Ponce MA - 03/08/2024 11:21 AM EST Lm on pt. Vm with all information Andrew Ponce MA [facility]01-29-2025 Miscellaneous Notes* Telephone Encounter - Andrew Ponce [...] advise. Suzi Haynes MA documented in this encounterSycamore Medical Center01-29-2025 Telephone encounter Note * Telephone Encounter - Ramy Delgadillo DO - 03/08/2024 11:17 AM EST Pt is due for blood work - order attached Ramy Delgadillo DO [facility]01-29-2025 Telephone encounter Note* Telephone Encounter - Suzi [...] Please review and advise. Suzi Haynes MA [facility]01-13-2025 Telephone encounter Note* Telephone Encounter - Giulia Rogel MA - 02/21/2024 4:34 PM EST Patient called and left a message stating that his appointment was canceled and that they can't do anything for him. He states his bowels are still bothering him Giulia Rogel MA [facility]01-13-2025 Miscellaneous Notes* Telephone Encounter - Giulia Rogel MA - 02/21/2024 4:34 PM EST Patient called and left a message stating that his appointment was canceled and that they can't do anything for him. He states his bowels are still bothering him Giulia Rogel MA documented in this encounterSycamore Medical Center01-13-2025 Telephone encounter Note * Telephone Encounter - [...] Please review and advise. Suzi Haynes MA [facility]01-13-2025 Miscellaneous Notes* Telephone Encounter - Suzi Haynes [...] advise. Suzi Haynes MA documented in this encounterSycamore Medical Center01-13-2025 Telephone encounter Note * Telephone Encounter - Suzi Hayens MA - 02/21/2024 7:27 AM EST pharmacy electronically requesting refills as follows: Last seen 12/27/23 . Last refill 08/09/23 . Requested Prescriptions Pending Prescriptions Disp Refills pantoprazole DR (PROTONIX) 40 mg tablet [Pharmacy Med Name: PANTOPRAZOLE SODIUM 40MG TBEC] 60 tablet 2 Sig: TAKE ONE TABLET BY MOUTH TWICE A DAY 30 MINUTES BEFORE EATING Please review and advise. Suzi Haynes MA [facility]01-13-2025 Miscellaneous Notes* Telephone Encounter - Suzi Haynes [...] advise. Suzi Haynes MA documented in this encounterSycamore Medical Center01-08-2025 Telephone encounter Note * Telephone Encounter - Suzi Haynes MA - 02/16/2024 7:19 AM EST ----- Message from Andrew Horowitz MA sent at 08/16/2023 2:21 PM EDT ----- Remind pt. Time to recheck A1C. Andrew Ponce MA [facility]01-08-2025 Miscellaneous Notes* Telephone Encounter - Suzi Haynes MA - 02/16/2024 7:19 AM EST ----- Message from Andrew Horowitz MA sent at 08/16/2023 2:21 PM EDT ----- Remind pt. Time to recheck A1C. Andrew Ponce MA documented in this encounterSycamore Medical Center12-31-2024 Telephone encounter Note * Telephone Encounter - Andrew Ponce MA - 02/08/2024 11:38 AM EST Patient requesting refills: Last office visit 12/27/2023. Last refill 08/10/2023 . Requested Prescriptions Pending Prescriptions Disp Refills FARXIGA 10 mg tablet Sig: Take 1 tablet by mouth daily with breakfast. Please review and advise. Andrew Ponce MA [facility]12-31-2024 Miscellaneous Notes* Telephone Encounter - Andrew Ponce MA - 02/08/2024 11:38 AM EST Patient requesting refills: Last office visit 12/27/2023. Last refill 08/10/2023 . Requested Prescriptions Pending Prescriptions Disp Refills FARXIGA 10 mg tablet Sig: Take 1 tablet by mouth daily with breakfast. Please review and advise. Andrew Ponce MA documented in this encounterSycamore Medical Center12-12-2024 Telephone encounter Note * Telephone Encounter - [...] Please review and advise. Andrew Ponce MA [facility]12-12-2024 Miscellaneous Notes* Telephone Encounter - Andrew Ponce [...] advise. Andrew Ponce MA documented in this encounterSycamore Medical Center12-11-2024 Telephone encounter Note * Telephone Encounter - Cristela Batres - 01/19/2024 12:04 PM EST Done [facility]12-11-2024 Miscellaneous Notes* Telephone Encounter - Cristela Batres [...] todays apointment Radha Anand documented in this encounterSycamore Medical Center12-11-2024 Telephone encounter Note * Telephone Encounter - Emani Torres - 01/19/2024 10:27 AM EST Spoke with patient and rescheduled as directed. PSS - please print and mail an updated schedule to the patient. Emani Torres [facility]12-09-2024 Telephone encounter Note* Telephone Encounter - Chanel Foreman LPN - 01/17/2024 12:08 PM EST [place] GI apt in [place]. Will need OV with Vandana moved per her note below. Chanel Foreman LPN [facility]12-09-2024 Telephone encounter Note* Telephone Encounter - Vandana Edwards - 01/17/2024 11:30 AM EST Pt needs GI workup, EDG and scope. Repeat CBC ordered. Unfortunately, I do not have any new information to further eval his anemia from our last OV. He does not need OV with us until after he meets with GI. [facility]12-09-2024 Telephone encounter Note* Telephone Encounter - Chanel Foreman LPN - 01/17/2024 9:32 AM EST What labs would you like. Chanel Foreman LPN [facility]12-09-2024 Telephone encounter Note* Telephone Encounter - Cristela Batres - 01/17/2024 9:[address] LABS PATIENT COMING IN ON 01/20 [facility]12-06-2024 Telephone encounter Note* Telephone Encounter - Radha Anand - 01/14/2024 1:34 PM EST Lvm for patient to return the call. Patient missed todays apointment Radha Anand [facility]11-22-2024 Telephone encounter Note* Telephone Encounter - Sabra Desouza APRN.CRNA - 12/31/2023 4:43 PM EST Please cancel endo procedures at [facility] 01/07/24. Pt needs to be scheduled in the hospital setting dueto medical history (Cirrhosis). I called and spoke with him and gave him the scheduling phone number so he can reschedule himself. [facility] Work Phone: 1(561) 140-314611-22-2024 Miscellaneous Notes* Telephone Encounter - Sabra Desouza APRN.CRNA - 12/31/2023 4:43 PM EST Please cancel endo procedures at [facility] 01/07/24. Pt needs to be scheduled in the hospital setting dueto medical history (Cirrhosis). I called and spoke with him and gave him the scheduling phone number so he can reschedule himself. documented in this encounterSycamore Medical Center11-18-2024 Instructions* Patient Instructions* Marianna Wagner APRN.CNP - 12/27/2023 2:37 PM EST Pneumococcal vaccine Shingrix Tdap RSV documented in this encounterSycamore Medical Center11-18-2024 NoteHNO ID: [id number] Author: MARIANNA WAGNER APRN.CNP Service: ? Author [...] Got it through a diabetic clinic in [facility] has been refilling it for [...] awhile). Was supposed to follow with a workers compensation analyst Hx of aortic valve replacement Had a congenital aortic aneurysm Has a pacemaker Has had heart attack He is not following with any specialists right now. States he either had a seizure or stroke and was placed in the hospital and then went to a intermediate for 5 weeks. 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 Wero mechanical Syncope Tachy-fernando syndrome (HCC) Tobacco abuse chronic Tobacco user Type 2 diabetes mellitus (HCC) PAST DARELL (more content not included)...[facility]11-18-2024 History of Present illness Narrative* Marianna Wagner, VIRIDIANA.HIGH SCHO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 - 12/27/2023 2:19 PM EST CHIEF COMPLAINT: [...] with meals and snacks. He remains on Zyovvyxe39 mg BID. He is still taking his iron replacement. Using Freestyle Mango 3 (has it on his right forearm) Got it through a diabetic clinic in [facility] has been refilling it for [...] awhile). Was supposed to follow with a workers compensation analyst Hx of aortic valve replacement Had a congenital aortic aneurysm Has a pacemaker Has had heart attack He is not following with any specialists right now. States he either had a seizure or stroke and was placed in the hospital and then went to a intermediate for 5 weeks. 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 Wero mechanical Syncope Tachy-fernando syndrome (HCC) Tobacco abuse chronic Tobacco user Type 2 diabetes mellitus (HCC) PAST SURGICAL HISTORY Procedure Laterality Date ABD AORTIC ANEURYSM REPAIR ASCENDING AORTA GRAFT W/AORTIC ROOT COLONOSCOPY SCREENING In [place] CORONARY ARTERY BYPASS GRAFT HX 2016 2005 [...] Current Outpatient Medications Medication Sig Dispense Refill zpupqm-obquzqpg-epwowud (CREON 36) 36,000-114,000- 180,000 unit delayed release capsule Take 2 pills by mouth with first bite of meal and take 1 pill with snacks. Max 10 per day. 300 capsule 3 Insulin [place], Disposable, (BD ULTRA-FINE NORBERTO PEN NEEDLE) 32 [...] 2 Blood-Glucose Meter,Continuous (FREESTYLE MANGO 3 READER) [facility] to check blood sugar at least [...] sooner should any other issues arise. - [employer] MANGO 3 SENSOR DEVICE 3. Stage 3 [...] patient. Marianna Wagner APRN.CNP documented in this encounterSycamore Medical Center11-15-2024 Instructions* Patient Instructions* Susana Ramirez APRN.CNP - [...] am on dialysis? A: Please consult your derrick barge operator prior to scheduling to get instructions pertinent to you. In general, dialysis patients take the [employer] bowel prep and have the procedure same [...] am on dialysis? A: Please consult your derrick barge operator prior to scheduling to get instructions pertinent [...] rest of the day. documented in this encounterSycamore Medical Center11-15-2024 [facility]Reg[facility] History of Present illness Narrative* Susana Ramirez APRN.CNP - 12/24/2023 10:35 AM EST CHIEF COMPLAINT: Patient presents with: Anemia: Diarrhea and blood in the stool This consult was requested by Marianna Wagner APRN* for an opinion regarding anemia. My final recommendations will be communicated to the requesting health care provider by way of the shared medical record for internal providers or letter via the [employer] for external providers. HPI: Analilia [...] Abs Lymph 1.00 - 4.00 k/uL 1.82 [place]% % 11.0 Abs [place] <0.87 k/uL 0.51 Eosin% % 0.0 Abs [...] ascending aorta repair Hyperlipidemia Hypertension Non-ST elevation NM (NSTEMI) (HCC) 06/24 Pacemaker Paroxysmal atrial fibrillation (HCC) RBBB (right bundle branch block) S/P aortic valve replacement St. Wero mechanical Syncope Tachy-fernando syndrome (HCC) Tobacco abuse chronic Tobacco user Type 2 diabetes mellitus (HCC) PAST SURGICAL HISTORY Procedure Laterality Date ABD AORTIC ANEURYSM REPAIR ASCENDING AORTA GRAFT W/AORTIC ROOT COLONOSCOPY SCREENING In [place] CORONARY ARTERY BYPASS GRAFT HX 2016 2005 HEART CATHETERIZATION 06/24/2016 HEART VALVE REPLACEMENT 2017 Aortic x2 ;2015 HERNIA REPAIR HX PACEMAKER 06/25/2016 REPLACEMENT AORTIC VALVE W BYPASS Allergies: ALLERGIES No Known Allergies Medications: Insulin [place], Disposable, (BD ULTRA-FINE NORBERTO PEN NEEDLE) 32 [...] daily. Blood-Glucose Meter,Continuous (FREESTYLE MANGO 3 READER) [facility] [place] to check blood sugar at least [...] meals and 1 pill with snacks - swwoof-znfetibq-almpxvw (CREON 36) 36,000-114,000- 180,000 unit delayed release capsule; Take 2 pills by mouth with first bite of meal and take 1 pill with snacks. Max 10 per day. Dispense: 300 capsule; Refill: 3 - EGD DIAGNOSTIC; Future 4. Epigastric pain - continue with pantorpazole 40mg BID - EGD DIAGNOSTIC; Future 5. Right lower quadrant abdominal pain - colonoscopy Follow up in office after rodrick Ramirez APRN.HIGH SCHO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 December 24, 2023 11:28 AM documented in this encounterSy[facility] Telephone encounter Note * Telephone Encounter - Suzi Haynes MA - 12/16/2023 5:04 PM EST Patient informed of results and to keep GI appointment on 12/24/23 at 11:20, reiterated the appointment and time to patient multiple times. Suzi Haynes MA [facility]11-07-[facility] Telephone encounter Note* Telephone Encounter - Suzi Haynes MA - 12/16/2023 5:04 PM EST ----- Message from Marianna Wagner APRN.HIGH SCHO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 sent at 12/15/2023 6:32 PM EST ----- CT pancreas showed chronic calcified pancreatitis with multiple stones and dilation of the duct. There was no mass. He needs to make the appointment with GI on 12/23 [facility]11-07-2024 Miscellaneous Notes* Telephone Encounter - Suzi Haynes MA - 12/16/2023 5:04 PM EST Patient informed of results and to keep GI appointment on 12/24/23 at 11:20, reiterated the appointment and time to patient multiple times. Suzi Haynes MA * Telephone Encounter - Suzi Haynes MA - 12/16/2023 5:04 PM EST ----- Message from Marianna Wagner APRN.HIGH SCHO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 sent at 12/15/2023 6:32 PM EST ----- CT pancreas showed chronic calcified pancreatitis with multiple stones and dilation of the duct. There was no mass. He needs to make the appointment with GI on 12/23 documented in this encounterSycamore [facility] Center10-30-2024 Miscellaneous Notes* Allied Health - Anny Durham [...] PATIENT PRESENTS WITH AN IMPLANTABLE OR ATTACHED TUBE OPERATOR: No RADIOLOGY DEPARTMENT: CT; Exam(s) Completed: Pancreas PERIPHERAL IV DATA: Site assessment: Clean,Dry and Intact, Site disposition Discontinued SIGNED BY: KIRA Thomas December 08, 2023 10:57 AM documented in this encounterSycamore [facility] Center10-30-2024 Nurse Note* Sigrid Mata RN - 12/08/2023 [...] DATE: December 08, 2023 TIME: 10:42 AM [facility] Nurse Note* Sigrid Mata RN - 12/08/2023 [...] 2023 TIME: 10:42 AM documented in this encounterSycamore Medical Center10-30-2024 Progress note* Allied Health - Anny Durham [...] PATIENT PRESENTS WITH AN IMPLANTABLE OR ATTACHED TUBE OPERATOR: No RADIOLOGY DEPARTMENT: CT; Exam(s) Completed: Pancreas PERIPHERAL IV DATA: Site assessment: Clean,Dry and Intact, Site disposition Discontinued SIGNED BY: KIRA Thomas December 08, 2023 10:57 AM [facility]10-29-[facility] Telephone encounter Note* Telephone Encounter - Marianna Wagner APRN.CNP - 12/07/2023 1:00 PM EDT New order for CT pancreas was placed since last one was discontinued. [facility] Miscellaneous Notes* Telephone Encounter - Marianna Wagner APRN.CNP - 12/07/2023 1:00 PM EDT New order for CT pancreas was placed since last one was discontinued. documented in this encounterSycamore Medical Center10-21-2024 Telephone encounter Note * Telephone Encounter - Marianna Wagner APRN.CNP - 11/29/2023 12:14 PM EDT Completed peer to peer for CT pancreas with IV contrast and obtained approval. # [id number] until 11/30/2023-12/31/2023 He is scheduled tomorrow for the CT. Spoke with Dr. Murillo with [facility] for reference. [facility] Miscellaneous Notes* Telephone Encounter - Marianna Wagner APRN.CNP - 11/29/2023 12:14 PM EDT Completed peer to peer for CT pancreas with IV contrast and obtained approval. # [id number] until 11/30/2023-12/31/2023 He is scheduled tomorrow for the CT. Spoke with Dr. Murillo with [facility] for reference. * Telephone Encounter - Twyla Espana - 11/25/2023 12:53 PM EDT Denial: CPT 52627-IQ PANCREAS W IVCON Denial Type: Payer Clinical [...] Yes Peer to Peer Deadline: 11/30/2023 Insurance Case#[id number] Peer to Peer opt 2 (enter tracking#) / opt 1 Denial sent to providers email documented in this encounterSycamore Medical Center10-18-2024 Telephone encounter Note * Telephone Encounter - Andrew Ponce MA - 11/26/2023 10:30 AM EDT Patient requesting refills: Last office visit 10/14/2023. Last refill . Requested Prescriptions Pending Prescriptions Disp Refills Insulin [place], Disposable, (BD ULTRA-FINE NORBERTO PEN NEEDLE) 32 gauge x 5/32 Sig: three times a day. Please review and advise. Andrew Ponce MA [facility] Miscellaneous Notes* Telephone Encounter - Andrew Ponce MA - 11/26/2023 10:30 AM EDT Patient requesting refills: Last office visit 10/14/2023. Last refill . Requested Prescriptions Pending Prescriptions Disp Refills Insulin [place], Disposable, (BD ULTRA-FINE NORBERTO PEN NEEDLE) 32 gauge x 5/32 Sig: three times a day. Please review and advise. Andrew Ponce MA documented in this encounterSycamore Medical Center10-17-2024 Telephone encounter Note * Telephone Encounter - Twyla Espana - 11/25/2023 12:53 PM EDT Denial: CPT 10207-ZY PANCREAS W IVCON Denial Type: Payer Clinical [...] Yes Peer to Peer Deadline: 11/30/2023 Insurance Case#[id number] Peer to Peer opt 2 (enter tracking#) / opt 1 Denial sent to providers email [facility] Telephone encounter Note* Telephone Encounter - Giulia Rogel MA - 11/16/2023 5:16 PM EDT Patient is informed Giulia Rogel MA [facility]10-08-2024 Miscellaneous Notes* Telephone Encounter - Giulia Rogel [...] Patient left message stating he saw the air conditioning equipment mechanic yesterday and they are very worried about his stomach and wants him to be seen by GI sooner than 12/24/23. Patient states he has called and they cannot see him any sooner and wanted to know if there was anything Marianna could do. Please advise. Suzi Haynes MA documented in this encounterSycamore Medical Center10-08-2024 Telephone encounter Note * Telephone Encounter - Marianna Wagner APRN.CNP - 11/16/2023 4:49 PM EDT Please let the patient know that I contacted GI and there is nothing available until his appointment in December. He needs to make this appointment. [facility] Telephone encounter Note* Telephone Encounter - Carolina Benito - 11/16/2023 4:20 PM EDT Unfortunately, we do not have any openings sooner as of right now. I would suggest if he is needingto be seen urgently to contact central scheduling at if he is willing to go to any location for care. We did add him to the wait list. Carolina Benito [facility]-08-[facility] Telephone encounter Note* Telephone Encounter - Marianna Wagner APRN.CNP - 11/16/2023 3:03 PM EDT I have already tried to get him a sooner appointment but then he missed that appointment. I will send the request to their office but there may not be anything available. [facility] Telephone encounter Note* Telephone Encounter - Suzi Haynes MA - 11/16/2023 2:32 PM EDT Patient left message stating he saw the air conditioning equipment mechanic yesterday and they are very worried about his stomach and wants him to be seen by GI sooner than 12/24/23. Patient states he has called and they cannot see him any sooner and wanted to know if there was anything Marianna could do. Please advise. Suzi Haynes MA [facility]10-07-[facility] History of Present illness Narrative* Vandana Edwards [...] ascending aorta repair Hyperlipidemia Hypertension Non-ST elevation NM (NSTEMI) ([facility]) 06/24 Pacemaker Paroxysmal atrial fibrillation ([facility]) RBBB (right bundle branch block) S/P aortic valve replacement [facility] [facility] mechanical Syncope Tachy-fernando syndrome ([facility]) Tobacco abuse chronic Tobacco user Type 2 diabetes mellitus ([facility]) PAST SURGICAL HISTORY Procedure Laterality Date [...] 2 Blood-Glucose Meter,Continuous (FREESTYLE MANGO 3 READER) [facility] Use to check blood sugar at least [...] 1 tablet by mouth once daily. Insulin [place], Disposable, (NORBERTO PEN NEEDLE) 32 gauge x [...] 5' 10 (1.78m) Wt 132 lb (59.9kg) [id number]% BMI 18.94 kg/(m^2). General: Age-appropriate well developed. [...] with labs in 8 weeks. Vandana Edwards APRN.HIGH SCHO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 I spent a total of 45 minutes on the date of the service which included preparing to see the patient, [id number] patient care, completing clinical documentation, counseling and [...] evaluation of this patient. documented in this encounterSycamore Medical Center10-01-2024 Telephone encounter Note * Telephone Encounter - Suzi Haynes MA - 11/09/2023 1:54 PM EDT Patient informed of results and additional imaging ordered. Suzi Haynes MA [facility]10-01-[facility] Miscellaneous Notes* Telephone Encounter - Suzi Haynes MA - 11/09/2023 1:54 PM EDT Patient informed of results and additional imaging ordered. Suzi Haynes MA * Telephone Encounter - Marianna Wagner APRN.CNP - 11/07/2023 7:[address] abd showed dilatation of the pancreatic duct possibly due to chronic pancreatitis.I placed an order for a CT for his pancreas. documented in this encounterSycamore Medical Center09-30-2024 Telephone encounter Note * Telephone Encounter - [...] Please review and advise. Suzi Haynes MA [facility]-30-[facility] Miscellaneous Notes* Telephone Encounter - Suzi Haynes MA - 11/08/2023 9:46 AM EDT pharmacy electronically requesting refills as follows: Last seen 10/14/23 . Last refill 10/17/23 . Requested Prescriptions Pending Prescriptions Disp Refills levoFLOXacin (LEVAQUIN) 250 mg tablet [Pharmacy Med Name: LEVOFLOXACIN 250MG TABS] 7 tablet 0 Sig: TAKE ONE TABLET BY MOUTH EVERY DAY FOR 7 DAYS Please review and advise. Suiz Haynes MA documented in this encounterSycamore Medical Center09-29-2024 Telephone encounter Note * Telephone Encounter - Marianna Wagner APRN.CNP - 11/07/2023 7:[address] abd showed dilatation of the pancreatic duct possibly due to chronic pancreatitis.I placed an order for a CT for his pancreas. [facility] NoteHNO ID: [id number] Author: YESSICA UMANA LPN Service: ? Author Type: LICENSED NURSE Type: Progress Notes Filed: 11/05/2023 13:46 Note Text: ED Follow Up: Patient discharged from [facility] ED on 10/30/2023. 1. How are you [...] you able to contact the office or instructional manager provider prior to your ED visit? Left message for pt to call office. 5. Is there anything else I can do for you today? Left message for pt to call office.[facility]09-27-2024 History of Present illness Narrative* Yessica Umana LPN - 11/05/2023 1:44 PM EDT ED Follow Up: Patient discharged from [facility] ED on 10/30/2023. 1. How are you [...] you able to contact the office or instructional manager provider prior to your ED visit? Left message forpt to call office. 5. Is there anything else I can do for you today? Left message for pt to call office. documented in this encounterSycamore Medical Center09-27-2024 NotePatient Outreach (AGINTMLW) ANALILIA MELENDREZ ([id number]) 1960 Date Time Provider Department 11/05/23 YESSICA UMANA AGINTMLW During your visit today, we recorded the following information about you: Yessica Umana LPN 11/05/2023 1:46 PM Signed ED Follow Up: Patient discharged from [facility] ED on 10/30/2023. 1. How are you [...] you able to contact the office or instructional manager provider prior to your ED visit? Left message for pt to call office. 5. Is there anything else I can do for you today? Left message for pt to call office. Allergies As of Date: 11/05/2023 (No Known Allergies) Date Reviewed: 10/14/2023 Reviewed by: Marianna Wagner APRN.HIGH SCHO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 - Fully Assessed Prescriptions as of 11/05/2023 - metFORMIN (GLUCOPHAGE) 500 mg tablet Take 1 tablet by mouth daily with breakfast. - Cholecalciferol, Vitamin D3, (VITAMIN D-3) 50 mcg (2,000 unit) cap Take 1 capsule by mouth once daily. - ferrous sulfate 325 mg (65 mg iron) tablet Take 1 tablet by mouth once daily. - Blood-Glucose Meter,Continuous (FREESTYLE MANGO 3 READER) [facility] Use to check blood sugar at least [...] tablet by mouth once daily. - Insulin [place], Disposable, (NORBERTO PEN NEEDLE) 32 gauge x [...] (HCC) [I71.9] 08/09/2023 Atherosclerotic heart disease of [place] coronar*01/03/2017 Chronic pancreatitis (HCC) [K86.1] 08/09/2023 Calcium [...] pacemaker [Z95.0] 08/09/2023 Histor (more content not included)...[facility]09-21-2024 Hospital Discharge instructions Patient Education 10/30/2023 [...] and smoking to help manage this disease. 4490-[address] [employer] [address] [place], [place] [id number]. All rights reserved. This information is not [...] if directed by your healthcare provider. [employer] [address] [place] [address]. All rights reserved. This information is not intended as a substitute for professional medical care. Always follow yourhealthcare professional's instructions. Follow Up Care 10/30/2023 15:12:07 With:VANESSA GROSS MD Address: [address] [facility], [place] [address]- [phone] When:3-5 days With:Go to emergency room if symptoms worsen Address:Unknown When:2-4 days With:MARIANNA WAGNERC Address: [address] [place] [phone] [phone] When:2-4 days [facility] 09-21-2024 Note Discharge Instructions Thank you for allowing [facility] to assist you with your healthcare needs. The following is importantdischarge information regarding your hospital visit. Diagnosis from Today's Visit Abdominal pain Lightheaded What to Do Next Instructions from Your Care Team No qualifying data available. Post Acute Orders No qualifying data available. You Need to Schedule the Following Appointments Follow Up with VANESSA GROSS MD When:Within 3-5 days Where:[address] [facility], [place] [address]- [phone] Follow Up with Go to emergency room if symptoms worsen When:Within 2-4 days Follow Up with MARIANNA WAGNER When:Within 2-4 days Where:[address] [place] [phone]- [phone] Allergies NKA Medications Please ask your primary [...] and smoking to help manage this disease. 5663-6[address] [employer] [address] [place] [address]. All rights reserved. This information is not [...] medicine if directed by your healthcare provider. [phone] [employer] [place] [address]. All rights reserved. This information is not intended as a substitute for professional medical care. Always follow yourhealthcare professional's instructions. Additional Information VACCINATE! IT SAVES LIVES! Members of the community who have not yet received the COVID-19 vaccine and would like to receive it can visit one of [facility] vaccine clinics. There are many vaccine clinic locations within the [facility]. For locations and available times, please visit [email or web address] It is important to note that some COVID mobile vaccine clinics are held outdoors and may be canceled in rainy or stormy conditions. To learn more about pediatric vaccinations (ages 5-11), we invite you to visit the [facility] webpage. https://www.[email or web address]/pages/[email or web address]-Vvroi-Yceoqjsopji-Rdnbtaomtb-Dqlmc-Voi stions.htmlTo learn more about the COVID-19 vaccine, we invite you to visit the CDC website for a list of frequently asked questions. https://www.cdc.gov/coronavirus/2019-ncov/vaccines/faq.html [facility] Patient Portal Access Instructions: Stay connected with your healthcare team and access your personal medical information anytime with the [facility] Patient Portal. If you would like a full copy of your medical records please contact the [facility] Medical Records Department Wednesday through Wednesday between 8a.m. and 4:30p.m. Please follow the directions below to access the portal: 1.Access the email account you provided upon registration to the [facility].2.Look for an invitation email from [facility].3.Open the email and access the invitation link: Accept Invitation to [facility]4.Fill in the required smith to create your account. Sign into [email or web address] with your username and password that you [...] you will allow to register on the [facility] Patient Portal for access to your information. You can also access the [facility] Patient Portal on the Ordr.in logan. Simply click on Health Records under HealthData and then click on the [facility] logo. [...] Call your local pharmacy or go to http://bit.ly/6O7Su4b to find one close to you.3.Make use of household items: Use cat litter or old coffee grounds to dispose medications if other options arenot available. Mix your drugs with these household products, seal them in an airtight container andthrow it into the garbage. Call [facility]: [phone] to be sure your drugs can be [...] aware that I should contact my doctor. Patient/Field Technician Signature: Date/Time: Relationship to Patient: Witness Name/Signature: Date/Time: [facility]09-21-2024 Note ORIGINAL EXAMINATION: ONE XRAY VIEW OF [...] Sign Date: 10/30/2023 5:23:53 PM Ordering Provider: [facility]09-21-2024 Note ORIGINAL EXAMINATION: CT OF THE ABDOMEN [...] Date: 10/30/2023 5:39:58 PM Ordering Provider: ANN-MARIE [facility]09-21-2024 Note ORIGINAL EXAMINATION: CT OF THE HEAD [...] Date: 10/30/2023 5:19:12 PM Ordering Provider: ANN-MARIE [facility]09-21-2024 Note Sinus rhythm Probable left atrial enlargement Right bundle branch block Electronic Signature: ANN-MARIE DILLON DO 10/30/2023 15:35:[address] [place] [address] 09-11-2024 Telephone encounter Note* Telephone Encounter - Emani Torres - 10/20/2023 8:39 AM EDT Spoke with patient and scheduled. Emani Melissa [facility]09-11-2024 Miscellaneous Notes* Telephone Encounter - Emani Torres - 10/20/2023 8:39 AM EDT Spoke with patient and scheduled. Emaniaaron Torres * Telephone Encounter - Sabra Rios LPN - 10/19/2023 12:10 PM EDT First available with Vandana Rios LPN * Telephone Encounter - Gracie Tinsley - 10/19/2023 11:25 AM EDT Patient is being referred to Dr Sebastian. This patient is not appropriate to offer our virtual anemia clinic. DX: Anemia Insurance: [employer] Referred by: Marianna Wagner APRN.HIGH SCHO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 Please review and advise documented in this encounterSycamore Medical Center09-10-2024 Telephone encounter Note * Telephone Encounter - Sabra Rios LPN - 10/19/2023 12:10 PM EDT First available with Vandana Rios LPN [facility]09-10-2024 Telephone encounter Note* Telephone Encounter - Gracie Tinsley - 10/19/2023 11:25 AM EDT Patient is being referred to Dr Sebastian. This patient is not appropriate to offer our virtual anemia clinic. DX: Anemia Insurance: [employer] Referred by: Marianna Wagner APRN.CNP Please review and advise [facility]09-09-2024 Telephone encounter Note* Telephone Encounter - Suzi Haynes MA - 10/18/2023 2:45 PM EDT Patient informed of all results, recommendations, appointment information and scripts sent in. Patient states he is going to have to move one of his appointments either the GI or the CT. Per conversation with Marianna Wagner HIGH SCHO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 advised patient not to change GI appointment, left message for [facility] radiology to move patient's CT appointment. Suzi Haynes MA [facility]09-09-2024 Miscellaneous Notes* Telephone Encounter - Suzi Haynes MA - 10/18/2023 2:45 PM EDT Patient informed of all results, recommendations, appointment information and scripts sent in. Patient states he is going to have to move one of his appointments either the GI or the CT. Per conversation with Marianna Wagner CNP advised patient not to change GI appointment, left message for [facility] radiology to move patient's CT appointment. Suzi [...] referring him to hematology. Referral to Dr. Sebastian in [place]. documented in this encounterSycamore Medical Center09-08-2024 Telephone encounter Note * Telephone Encounter - [...] referring him to hematology. Referral to Dr. Sebastian in [place]. [facility]09-05-2024 Instructions* Patient Instructions* Marianna Wagner APRN.CNP - 10/14/2023 11:17 AM EDT Schedule with GI Get labs done Start iron replacement- take with vitamin C (OJ) Check if you are taking vitamin D Make sure you are taking Protonix/pantoprazole [facility] [address] [place] [address] Appointment: [phone] Desk: [phone] What protein supplements can I buy at the grocery store? * Ensure Plus (13 grams of protein per bpttle) * Boost High Protein (15 grams of protein per bottle) * [place] Instant Breakfast packet with 8oz gkass of milk (13 grams of protein) Beneprotein (6 grams of protein 1 pkg.) can be mixed with 2-4 oz. of any liquid Pickerel s Shakes (10 grams of protein per bottle) Milkshake Chugs (14 grams of protein per bottle) [facility] Perfectly Protein (10 grams of protein per 8oz) [employer] Vanilla Protein Monster (33 grams of protein [...] friendly products please ask your dietitian. FYI: Mongolian yogurt has more protein than regular yogurt [place] is in organic section of your grocery stores [place] Instant Breakfast is in the breakfast cereal aisle Milkshake Chugs are in the milk aisle [employer] Protein Monster is in the organic section of the grocery store Some suggestions to make protein supplements easier to drink: Drink protein supplements cold Drink in a cup with a lid, like a travel mug (no straw) to decrease the smell documented in this encounterSycamore Medical Center09-05-2024 NoteHNO ID: [id number] Author: MARIANNA WAGNER APRN.STEPHANIE Service: ? Author [...] awhile). Was supposed to follow with a workers compensation analyst Hx of aortic valve replacement Had a congenital aortic aneurysm Has a pacemaker Has had heart attack He is not following with any specialists right now. States he either had a seizure or stroke and was placed in the hospital and then went to a intermediate for 5 weeks. 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 Started smoking [...] No date: Anxiety No date: Aortic aneurysm ([facility]) Comment: S/P Repair No date: Aortic aneurysm (HCC) No date: Aortic valve disorder Comment: S/P Replacement No date: CAD (coronary artery disease) Comment: nonobstructive No date: Coronary artery disease No date: Depression No date: Diabetes mellitus, type II ([facility]) Comment: Insulin dependent No date: Hx of ascending aorta repair No date: Hyperlipidemia No date: Hypertension No date: Non-ST elevation NM (NSTEMI) ([facility]) Comment: 06/24 No date: NSTEMI (non-ST elevated myocardial infarction) ([facility]) No date: Pacemaker No date: Pacemaker No date: Paroxysmal atrial fibrillation ([facility]) No date: RBBB (right bundle branch block) No date: S/P aortic valve replacement Comment: 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 Was supposed to follow with a workers compensation analyst Hx of aortic valve replacement Had a congenital aortic aneurysm Has a pacemaker Has had heart attack He is not following with any specialists right now. States he either had a seizure or stroke and was placed in the hospital and then went to a intermediate for 5 weeks. 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 Started smoking [...] No date: Anxiety No date: Aortic aneurysm ([facility]) Comment: S/P Repair No date: Aortic aneurysm ([facility]) No date: Aortic valve disorder Comment: S/P Replacement No date: CAD (coronary artery disease) Comment: nonobstructive No date: Coronary artery disease No date: Depression No date: Diabetes mellitus, type II ([facility]) Comment: Insulin dependent No date: Hx of ascending aorta repair No date: Hyperlipidemia No date: Hypertension No date: Non-ST elevation NM (NSTEMI) ([facility]) Comment: 06/24 No date: NSTEMI (non-ST elevated myocardial infarction) ([facility]) No date: Pacemaker No date: Pacemaker No date: Paroxysmal atrial fibrillation ([facility]) No date: RBBB (right bundle branch block) No date: S/P aortic valve replacement Comment: [employer]. 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 Insulin [place], Disposable, (NORBERTO PEN NEEDLE) 32 gauge x [...] Monocytes % 09/25/2023 10.1 % Final Abs [place] 09/25/2023 0.48 <0.87 k/uL Final Eosinophils % [...] 99 74 - 99 mg/dL Final The [place] Diabetes Association (ADA) provides guidance for cutoff [...] Standards of Medical Care in Diabetes 2016, [place] [employer] Association. Diabetes Care. 2016.39(Suppl 1). BUN [...] - ACEi/ARB prescribed: Yes - SGLT2i prescribed: MIGUELANGEL Tab - ALBUMIN/CREATININE RATIO, URINE 11. Elevated [...] patient. Marianna Wagner APRN.CNP documented in this encounterSycam[facility]08-29-[facility]24 Telephone encounter Note * Telephone Encounter - Giulia Rogel MA - 10/07/2023 5:11 PM EDT Patient is informed and and reminder placed. He states he needs to drop off the specimen and he will call IWONA Rogel MA [facility]08-29-2024 Miscellaneous Notes* Telephone Encounter - Giulia Rogel [...] appointment with GI yet? documented in this encounterSycamore Medical Center08-29-2024 Telephone encounter Note * Telephone Encounter - Marianna Wagner APRN.CNP - 10/07/2023 11:29 AM EDT Hgb has decreased showing anemia. I want to recheck her CMP and CBC again in 2 weeks. Has he completed the stool studies yet? Or make an appointment with GI yet? [facility]08-16-[facility] Telephone encounter Note* Telephone Encounter - Giulia Rogel MA - 09/24/2023 1:52 PM EDT Patient is informed but he gets rides through his insurance so he won't be able to picker tender helper the kit or get the blood work done for a while. He is going to try and go to [facility] to complete labs and stool study Giulia Rogel MA [facility]08-16-2024 Miscellaneous Notes* Telephone Encounter - Giulia Rogel MA - 09/24/2023 1:52 PM EDT Patient is informed but he gets rides through his insurance so he won't be able to picker tender helper the kit or get the blood work done for a while. He is going to try and go to [facility] to complete labs and stool study [...] too. I also placed some lab orders. [facility] [address] [place] [address] Appointment: [phone] Desk: [phone] * Telephone Encounter - Suzi Haynes MA [...] advise. Suzi Haynes MA documented in this encounterSycamore Medical Center08-16-2024 Telephone encounter Note * Telephone Encounter - [...] too. I also placed some lab orders. [facility] [address] [place] [address] Appointment: [phone] Desk: [phone] [facility]08-16-[facility]24 Telephone encounter Note* Telephone Encounter - Suzi [...] in anyway. Please advise. Suzi Haynes MA [facility]08-07-2024 NoteHNO ID: [id number] Author: RADHA ETIENNE RN Service: ? Author Type: Registered Nurse Type: Progress Notes Filed: 09/15/2023 14:15 Note Text: PRIMARY CARE COORDINATION QUICK NOTE Patient identified by name and date . PCC called to discuss Care Coordination services. Pt is not interested. Radha Etienne [facility]08-07-2024 History of Present illness Narrative* Radha Etienne RN - 09/15/2023 2:10 PM EDT PRIMARY CARE COORDINATION QUICK NOTE Patient identified by name and date . PCC called to discuss Care Coordination services. Pt is not interested. Radha Etienne RN documented in this encounterSycamore Medical Center08-07-2024 NotePatient Outreach (AGACM) ANALILIA MELENDREZ ([id number]) 1960 M Date Time Provider Department 09/15/[address] [facility] During your visit today, we recorded the following information about you: Radha Etienne RN 09/15/2023 2:15 PM Signed PRIMARY CARE COORDINATION QUICK NOTE Patient identified by name and date . PCC called to discuss Care Coordination services. Pt is not interested. Radha Etienne RN Allergies As of Date: 09/15/2023 (No Known Allergies) Date Reviewed: 08/09/2023 Reviewed by: Marianna Wagner APRN.HIGH SCHO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 - Fully Assessed Reason for Visit: Surgery Scheduling Coordinator Chronic Care [3612] Cmt: Care Coordination Prescriptions as of 09/15/2023 - Blood-Glucose Meter,Continuous (FREESTYLE MANGO 3 READER) [facility] Use to check blood sugar at least [...] tablet by mouth once daily. 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 Yessica Umana LPN [facility]08-05-2024 Miscellaneous Notes* Telephone Encounter - Yessica Umana [...] was having blood diarrhea. documented in this encounterSycamore Medical Center08-05-2024 Telephone encounter Note * Telephone Encounter - Marianna Wagner APRN.CNP - 09/13/2023 8:16 AM EDT Please call patient to check on him since he did not go to an ER that I can see. He had called nurse rhys stating he was having blood diarrhea. [facility]08-02-[facility] Telephone encounter Note* Telephone Encounter - Eloy [...] stand, low BP, rapid pulse) Protocols used: [id number] [facility]08-02-2024 Miscellaneous Notes* Telephone Encounter - Eloy Garcia [...] stand, low BP, rapid pulse) Protocols used: [id number] documented in this encounterSycamore Medical Center08-02-2024 NoteHNO ID: [id number] Author: RADHA ETIENNE RN Service: ? Author Type: Registered Nurse Type: Progress Notes Filed: 09/10/2023 10:55 Note Text: PRIMARY CARE COORDINATION QUICK NOTE Patient identified by name and date . PCC called to introduce Care Coordination services. Pt prefers a call back another day, as he is just not feeling good today. Radha Etienne, [facility]08-02-2024 History of Present illness Narrative* Radha Etienne RN - 09/10/2023 10:49 AM EDT PRIMARY CARE COORDINATION QUICK NOTE Patient identified by name and date . PCC called to introduce Care Coordination services. Pt prefers a call back another day, as he is just not feeling good today. Radha Etienne RN documented in this encounterSycamore Medical Center08-02-2024 NotePatient Outreach (AGACM) ANALILIA MELENDREZ ([id number]) 1960 M Date Time Provider Department 09/10/23 RADHA ETIENNE [facility]ZURI During your visit today, we recorded the [...] Date Reviewed: 08/09/2023 Reviewed by: Marianna Wagner APRN.HIGH SCHO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 - Fully Assessed Reason for Visit: Surgery Scheduling Coordinator- Other [5860] Cmt: Care Coordination Prescriptions as of 09/10/2023 - Blood-Glucose Meter,Continuous (FREESTYLE MANGO 3 READER) [facility] Use to check blood sugar at least [...] tablet by mouth once daily. 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 Author Type: Registered Nurse Type: Progress Notes Filed: 08/24/2023 13:57 Note Text: PRIMARY CARE COORDINATION QUICK NOTE Patient identified by name and date . PCC called to introduce care coordination services. Pt isn't home right now. Radha Etienne [facility]07-16-2024 History of Present illness Narrative* Radha Etienne RN - 08/24/2023 1:52 PM EDT PRIMARY CARE COORDINATION QUICK NOTE Patient identified by name and date . PCC called to introduce care coordination services. Pt isn't home right now. Radha Etienne RN documented in this encounterSycamore Medical Center07-16-2024 NotePatient Outreach (AGACM) ANALILIA MELENDREZ ([id number]) 1960 M Date Time Provider Department 08/24/[address] [facility] During your visit today, we recorded the following information about you: Radha Etienne RN 08/24/2023 1:57 PM Signed PRIMARY CARE COORDINATION QUICK NOTE Patient identified by name and date . PCC called to introduce care coordination services. Pt isn't home right now. Radha Etienne RN Allergies As of Date: 08/24/2023 (No Known Allergies) Date Reviewed: 08/09/2023 Reviewed by: Marianna Wagner APRN.HIGH SCHO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 - Fully Assessed Reason for Visit: Surgery Scheduling Coordinator- Other [4400] Cmt: Care Coordination Prescriptions as of 08/24/2023 [...] tablet by mouth once daily. 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 (HCC) [Z79.4]01/03/2017 Pansystolic murmur [R01.1] 08/09/2023 Unspecified severe protein-calorie malnutrition*05/20/2023 Encounter Status:Closed by RADHA ETIENNE on 08/24/23[facility]07-12-2024 Telephone encounter Note* Telephone Encounter - Giulia Rogel MA - 08/20/2023 10:44 AM EDT Patient called he would like an order for raysa Rogel MA [facility]07-12-2024 Miscellaneous Notes* Telephone Encounter - Giulia Rogel MA - 08/20/2023 10:44 AM EDT Patient called he would like an order for raysa Rogel MA documented in this encounterSycamore Medical Center07-08-2024 Telephone encounter Note * Telephone Encounter - Andrew Ponce MA - 08/16/2023 2:21 PM EDT Pt. Notified. Reminder placed. Andrew Ponce MA [facility]07-08-2024 Telephone encounter Note* Telephone Encounter - Andrew Ponce MA - 08/16/2023 2:21 PM EDT ----- Message from Marianna Wagner APRN.HIGH SCHO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 sent at 08/16/2023 2:14 PM EDT ----- A1C has improved to 6.8 which is considered controlled. Continue current medications. Recheck in 6 months. [facility]07-08-2024 Miscellaneous Notes* Telephone Encounter - Andrew Ponce MA - 08/16/2023 2:21 PM EDT Pt. Notified. Reminder placed. Andrew Ponce MA * Telephone Encounter - Andrew Ponce MA - 08/16/2023 2:21 PM EDT ----- Message from Marianna Wagner APRN.HIGH SCHO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 sent at 08/16/2023 2:14 PM EDT ----- A1C has improved to 6.8 which is considered controlled. Continue current medications. Recheck in 6 months. documented in this encounterSycamore Medical Center07-05-2024 Telephone encounter Note * Telephone Encounter - Suzi Haynes MA - 08/13/2023 9:27 AM EDT Patient informed of results, recommendations and scripts sent in. Patient states he [facility] not use [facility] he uses [facility] in [place] and would like scripts resent. Also patient states he does not take any supplements with vitamin B12. Please advise. Suzi Haynes MA [facility]07-05-2024 Miscellaneous Notes* Telephone Encounter - Suzi Haynes [...] not with Lisinopril. Will forward this to health care liaison since he is a complicated case. documented in this encounterSycamore Medical Center07-03-2024 Telephone encounter Note * Telephone Encounter - [...] not with Lisinopril. Will forward this to health care liaison since he is a complicated case. [facility]07-01-2024 Instructions* Patient Instructions* Marianna Wagner APRN.CNP - 08/09/2023 1:37 PM EDT [facility] [address] [place] [address] Appointment: [phone] Desk: [phone] documented in this encounterSycamore Medical Center07-01-2024 NoteHNO ID: [id number] Author: MARIANNA WAGNER APRN.CNP Service: ? Author Type: Nurse Practitioner Type: Progress Notes Filed: 08/13/2023 12:57 Note Text: [facility] Marianna Gomezdevyn ALTERATION HAND-HIGH SCHO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 [address] [place] [address] Dept Dept. Visit Date: August 09, 2023 Mr.Steven Melendrez Date of : 1960 MRN/E #: [id number] Chief Complaint: Patient presents with: Establish Care: Previous pt. Of dr. Young at [facility]. Think he may have a seizure or stoke. Went to intermediate for 5 week. ([facility] in [facility]) Diarrhea: X 2 months. BM is [...] awhile). Was supposed to follow with a workers compensation analyst Hx of aortic valve replacement Had a congenital aortic aneurysm Has a pacemaker Has had heart attack He is not following with any specialists right now. States he either had a seizure or stroke and was placed in the hospital and then went to a intermediate for 5 weeks. 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 Started smoking [...] artery disease Depression Diabetes mellitus, type II ([facility]) Insulin dependent Hx of ascending aorta repair Hyperlipidemia Hypertension Non-ST elevation NM (NSTEMI) ([facility]) 06/24 NSTEMI (non-ST elevated myocardial infarction) ([facility]) Pacemaker Pacemaker Paroxysmal atrial fibrillation ([facility]) RBBB (right bundle branch block) S/P aortic valve replacement St. Wero mechanical Syncope Tachy-fernando syndrome ([facility]) Tachy-fernando syndrome ([facility]) Tobacco abuse chronic Tobacco user Type 2 diabetes mellitus ([facility]) PAST SURGICAL HISTORY Procedure Laterality Date [...] capsule 10 mg. jiménez (more content not included)...[facility]07-01-2024 History of Present illness Narrative* Marianna Wagner APRN.HIGH SCHO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 - 08/09/2023 1:13 PM EDT Images from the original note were not included. [facility] Marianna Wagner ALTERATION HAND-HIGH SCHO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 [address] [place] [address] Dept Dept. Visit Date: August 09, 2023 Mr.Steven Melendrez Date of : 1960 MRN/E #: [id number] Chief Complaint: Patient presents with: Establish Care: Previous pt. Of dr. Young at [facility]. Think he may have a seizure or stoke. Went to intermediate for 5 week. ([facility] in [facility]) Diarrhea: X 2 months. BM is [...] awhile). Was supposed to follow with a workers compensation analyst Hx of aortic valve replacement Had a congenital aortic aneurysm Has a pacemaker Has had heart attack He is not following with any specialists right now. States he either had a seizure or stroke and was placed in the hospital and then went to a intermediate for 5 weeks. 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 Started smoking [...] MEDICAL HISTORY Diagnosis Date Anxiety Aortic aneurysm ([facility]) S/P Repair Aortic aneurysm ([facility]) Aortic valve disorder S/P Replacement CAD (coronary artery disease) nonobstructive Coronary artery disease Depression Diabetes mellitus, type II ([facility]) Insulin dependent Hx of ascending aorta repair Hyperlipidemia Hypertension Non-ST elevation NM (NSTEMI) ([facility]) 06/24 NSTEMI (non-ST elevated myocardial infarction) ([facility]) Pacemaker Pacemaker Paroxysmal atrial fibrillation ([facility]) RBBB (right bundle branch block) S/P aortic valve replacement St. Wero mechanical Syncope Tachy-fernando syndrome ([facility]) Tachy-fernando syndrome ([facility]) Tobacco abuse chronic Tobacco user Type 2 diabetes mellitus ([facility]) PAST SURGICAL HISTORY Procedure Laterality Date [...] by mouth twice daily with meals. Insulin [place], Disposable, (NORBERTO PEN NEEDLE) 32 gauge x [...] (around 11/09/2023) for DM follow-up. Marianna Wagner APRN.HIGH SCHO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, signed on August 09, 2023 1:13 PM documented in this encounterSycamore Medical Center04-11-2024 Discharge summary Author Refugio Rojas [facility] May 20, 2023 9:40am Note Date/Time May 20, 2023 9:3 0am [facility] Medical Records Department [address] [place] [address] Transfer to [facility] MR#: [id number] Acct: [id number] Name: ANALILIA MELENDREZ Rep #:[id number] : 1960 62 From: Refugio Rod PCP: ALAN Chahal tus:ADM IN Certification of patient admission REQUIRED AT TIME OF ADMISSION. I CERTIFY THAT POST-HOSPITAL ECF SERVICES ARE REQUIRED TO BE GIVEN ON AN IN-PATIENT BASIS BECAUSE OF THE ABOVE NAMED PATIENT'S NEED FOR CORRECTION CARE ON A CONTINUING BASIS FOR THE [...] start patient on norepinephrine. Consult placed to sand hauler 05/16: Sepsis has resolved. 2. Chronic alcohol [...] furosemide 40 mg IV daily yesterday by derrick barge operator. BMP from today pending. 4. Mild hyponatremia [...] - Requested for PT OT eval and psychiatric social worker to assist with discharge planning [...] Refugio Rojas Primary Care Provider: Andreas Pathak TRACTOR CRANE OPERATOR Consulting Providers: Conrado Pro; Maya Melo; Conrado [...] Referrals / Follow Up: Andreas Pathak NP, ALAN [Primary Care Provider] - Disposition Disposition (needs filled in before D/C Order can be placed): Alf Facility 05/20/23939 <Electronically signed by Refugio Rojas MD> Cosigner Signature (if applicable): CC: ALAN Pathak; Dr. Conrado Morel MD; Dr. Conrado Pro DO; Dr. Maya Melo MD ~ [facility] Work Phone: 1(135) 709-236604-11-2024 Discharge summary Author Refugio Rojas [facility] May 20, 2023 12:37pm Note Date/Time May 20, 2023 12: 37pm [facility] Medical Records Department [address] [place] [address] Discharge Summary 05/20/23939 MR#: [id number] Acct: [id number] Name: ANALILIA MELENDREZ Rep #:[id number] : 1960 62 From: Refugio oRd PCP: ALAN Chahal [facility] tus:ADM IN [facility] Prov[facility] Date of Admission: 05/09/23 Date of Discharge: 05/20/23 Primary Care Physician: ALAN Chahal Consultations 05/10/23 09:57 Consult: Leather Worker / Pulmonary Medicine Routine Consulting Provider: Intensivists/Pulmonary Med Reason for Consult: sepsis EMERGENT Consult: No Notified: Yes Date Notified: 05/10/23 Time Notified: 09:57 Method of Notification: Text 05/13/23 08:44 Consult: Nephrology Routine Consulting Provider: Maya Melo Reason for Consult: MALIK EMERGENT Consult: No Notified: Yes Date Notified: 05/13/23 Time Notified: 08:44 Method of Notification: Text Comments:: Notified TRACTOR CRANE OPERATOR Reason For Visit: ACUTE CYSTITIS, WITHOUT HEMATURIA [...] start patient on norepinephrine. Consult placed to sand hauler 05/16: Sepsis has resolved. 2. Chronic alcohol [...] furosemide 40 mg IV daily yesterday by derrick barge operator. BMP from today pending. 05/18: On diuretic. Follow-up with derrick barge operator in 2 weeks 4. Mild hyponatremia ? [...] - Requested for PT OT eval and psychiatric social worker to assist with discharge planning [...] 82.4 H, Lymph % (Auto) 9.8 L, [place] % (Auto) 5.6, Eos % (Auto) 0.7, [...] Refugio Rojas Primary Care Provider: Andreas Pathak TRACTOR CRANE OPERATOR Consulting Providers: Conrado Pro; Maya Melo; Conrado [...] Staff - Consulting] - Within 2 Weeks Piper Pearson MD [Med Staff - Active Staff] - Within 1 Month (History of ascending aortic dissection, sick sinus syndrome status post pacemaker and valvular heart disease) Andreas Pathak NP, ALAN [Primary Care Provider] - Disposition Disposition (needs filled in before D/C Order can be placed): Alf Facility Charges/Coding Visit Charges Inpatient E&M: 66594 Disch Hosp >30min 05/20/23 1237 <Electronically signed by Refugio Rojas MD> Cosigner Signature (if applicable): CC: ALAN Pathak; Dr. Refugio Rojas MD~ Signed [facility] Work Phone: 1(738) 430-743004-10-2024 Progress note Author Refugio Rojas [facility] May 19, 2023 2:23pm Note Date/Time May 19, 2023 7:3 7am [facility] Medical Records Department [address] [place] [address] Progress Note - Hospitalist 05/19/23 0724 MR#: [id number] Acct: [id number] Name: ANALILIA MELENDREZ Rep #:[id number] : 1960 62 From: Refugio Rod PCP: ALAN Chahal Sta tus:ADM IN Location: [place] [address] Reason for Visit Reason for Visit: Diagnoses [...] 85.7 H, Lymph % (Auto) 7.7 L, [place] % (Auto) 4.5, Eos % (Auto) 0.6, [...] start patient on norepinephrine. Consult placed to sand hauler 05/16: Sepsis has resolved. 2. Chronic alcohol [...] furosemide 40 mg IV daily yesterday by derrick barge operator. BMP from today pending. 4. Mild hyponatremia [...] - Requested for PT OT eval and psychiatric social worker to assist with discharge planning [...] x 1 Charges/Coding Visit Charges Inpatient E&M: 24082 Subs Hosp L2 05/19/23 142 <Electronically signed by Refugio Rojas MD> Cosigner Signature (if applicable): CC: ~ Signed [facility] Work Phone: 1(432) 388-792804-09-2024 Progress note Author Maya Melo [facility] May 18, 2023 7:25pm Note Date/Time May 18, 2023 7:25 pm [facility] Medical Records Department [address] [place] [address] Progress Note - Nephrology 05/18/231922 MR#: [id number] Acct: [id number] Name: ANALILIA MELENDREZ Rep #:[id number] : 1960 62 From: Maya rivers MD PCP: Andreas Pathak, TRACTOR CRANE OPERATOR-C Lizzy tus:ADM IN Location: [place] [address] Subjective Subjective No new complaints. Good urine [...] (Auto) 85.0 H, Lymph% (Auto) 7.8 L, [place] % (Auto) 4.4, Eos % (Auto) 0.6, [...] Cosigner Signature (if applicable): CC: ~ Signed [facility] [facility] Work Phone: 1(125) 572-445004-09-2024 Progress note Author Maya Melo [facility] May 18, 2023 10:28am Note Date/Time May 17, 2023 10:0 7am [facility] Medical Records Department [address] [place] [address] Progress Note - Nephrology 05/17/23 0959 MR#: [id number] Acct: [id number] Name: ANALILIA MELENDREZ Rep #:[id number] : 1960 62 From: Estefany MAY PCP: ALAN Chahal Sta tus:ADM IN Location: [place] [address] Subjective Subjective Following for MALIK Patient resting [...] 83.3 H, Lymph % (Auto) 8.6 L, [place] % (Auto) 4.6, Eos % (Auto) 1.1, [...] by Maya Melo MD> CC: ~ Signed [facility] Work Phone: 1(721) 574-155404-09-2024 Progress note Author Refugio Rojas [facility] May 18, 2023 8:36am Note Date/Time May 18, 2023 8:31 am [facility] Medical Records Department [address] [place] [address] Progress Note - Hospitalist 05/18/23 0828 MR#: [id number] Acct: [id number] Name: ANALILIA MELENDREZ Rep #:[id number] : 1960 62 From: Refugio Rod PCP: ALAN Chahal Sta tus:ADM IN Location: [place] [address] Reason for Visit Reason for Visit: Diagnoses [...] (Auto) 85.0 H, Lymph% (Auto) 7.8 L, [place] % (Auto) 4.4, Eos % (Auto) 0.6, [...] start patient on norepinephrine. Consult placed to sand hauler 05/16: Sepsis has resolved. 2. Chronic alcohol [...] furosemide 40 mg IV daily yesterday by derrick barge operator. BMP from today pending. 4. Mild hyponatremia [...] - Requested for PT OT eval and psychiatric social worker to assist with discharge planning 18. Anasarca ? Suspected to be secondary to hypoalbuminemia given patient chronic liver disease. Patient did receive IV Lasix 80 mg x 1 Charges/Coding Visit Charges Inpatient E&M: 43484 Subs Hosp L2 05/18/23 08 <Electronically signed by Refugio Rojas MD> Cosigner Signature (if applicable): CC: ~ Signed ADDENDUM by Dr. Refugio Rojas MD on 05/18/23 at 0835 Addendum Patient has been in antibiotic since admission 05/09/2023. Initially on ceftriaxone but was changed to Zosyn when transferred to ICU from [facility]. Zosyn then changed to cefdinir. Patient had antibiotic 9 days of antibiotics therefore we will discontinue it 05/18/2335<Electronically signed by Refugio Rojas MD> Cosigner Signature (if applicable): cc: ~* Signed ADDENDUM by Dr. Refugio Rojas MD on 05/18/23 at 0836 Addendum Sepsis most likely due to acute cystitis: Urine culture shows E. coli more than 100,000 colonies. Sepsis had resolved 05/18/23 0836<Electronically signed by Refugio Rojas MD> Cosigner Signature (if applicable): cc: ~* Signed [facility] Work Phone: 1(599) 589-357204-08-2024 Progress note Author Refugio Rojas [facility] May 17, 2023 9:21am Note Date/Time May 17, 2023 7:50 am [facility] Medical Records Department [address] [place] [address] Progress Note - Hospitalist 05/17/2345 MR#: [id number] Acct: [id number] Name: ANALILIA MELENDREZ Rep #:[id number] : 1960 62 From: Refugio Rod PCP: ALAN Chahal Sta tus:ADM IN Location: [place] [address]- 1 Reason for Visit Reason for Visit: [...] (Auto) 82.3 H, Lymph %(Auto) 8.7 L, [place] % (Auto) 5.5, Eos % (Auto) 1.2, [...] 83.3 H, Lymph % (Auto) 8.6 L, [place] % (Auto) 4.6, Eos % (Auto) 1.1, [...] start patient on norepinephrine. Consult placed to sand hauler 05/16: Sepsis has resolved. 2. Chronic alcohol dependence with acute alcohol withdrawal ? Admitted to regular nursing floor managed with phenobarb taper.? Patient progressed being monitored with CIIL protocol 05/16: Earlier phenobarbital discontinued as patient [...] - Requested for PT OT eval and psychiatric social worker to assist with discharge planning 18. Anasarca ? Suspected to be secondary to hypoalbuminemia given patient chronic liver disease. Patient did receive IV Lasix 80 mg x 1 Charges/Coding Visit Charges Inpatient E&M: 28081 Subs Hosp L2 05/17/23918 <Electronically signed by Refugio Rojas MD> Cosigner Signature (if applicable): CC: ~ Signed ADDENDUM by Dr. Refugio Rojas MD on 05/17/23 at 0921 Addendum Severe anemia hemoglobin 7.2 from last 2 days iron study shows transferrin saturation 62%. Therefore is not anemia of iron deficiency.B12 more than 2000. 05/17/23920<Electronically signed by Refugio Rojas MD> Cosigner Signature (if applicable): cc: ~* Signed [facility] Work Phone: 1(842) 576-673604-07-2024 Progress note Author Conrado Morel [facility] May 16, 2023 9:45am Note Date/Time May 16, 2023 8:05 am [facility] Medical Records Department [address] [place] [address] Progress Note - Hospitalist 05/16/23804 MR#: [id number] Acct: [id number] Name: ANALILIA MELENDREZ Rep #:[id number] : 1960 62 From: Conrado Morel MD PCP: ALAN Chahal tus:ADM IN Location: [place] [address] Reason for Visit Reason for Visit: Diagnoses [...] start patient on norepinephrine. Consult placed to sand hauler ? 05/11/2023; patient remains in ICU did [...] - Requested for PT OT eval and psychiatric social worker to assist with discharge planning [...] 35 Minutes Charges/Coding Visit Charges Inpatient E&M: 85310 Subs Hosp L2 05/16/23 0945 <Electronically signed by Conrado Morel MD> Cosigner Signature (if applicable): CC: ~ Signed [facility] Work Phone: 1(729) 676-218204-06-2024 Progress note Author Earnest Hamlin tr [facility] May 15, 2023 6:15pm Note Date/Time May 15, 2023 5:43 pm [facility] Medical Records Department [address] [place] [address] Progress Note - Nephrology 05/15/23 1445 MR#: [id number] Acct: [id number] Name: ANALILIA MELENDREZ Rep #:[id number] : 1960 62 From: Earnest ortiz MD PCP: ALAN Chahal tus:ADM IN Location: [place] [address] Subjective Subjective Following for acute kidney injury. [...] 76.8 H, Lymph % (Auto) 10.6 L, [place] % (Auto) 8.5, Eos % (Auto) 1.7, [...] Cosigner Signature (if applicable): CC: ~ Signed [facility] Work Phone: 1(627) 116-972904-06-2024 Progress note Author Conrado Morel [facility] May 15, 2023 8:55am Note Date/Time May 15, 2023 8:15 am [facility] Medical Records Department [address] [place] [address] Progress Note - Hospitalist 05/15/23 0814 MR#: [id number] Acct: [id number] Name: ANALILIA MELENDREZ Rep #:[id number] : 1960 62 From: Conrado Morel MD PCP: ALAN Chahal tus:ADM IN Location: [place] [address] Reason for Visit Reason for Visit: Diagnoses [...] 1470 / 1470 2242.5 / 2262.5 20 Output Total 1325 / 1325 1000 / 1700 700 / 700 Balance 145 / 145 1242.5 / 562.5 -680 / -680 Lab / Micro Data 05/15/23 06:20 05/15/23 06:20 Labs: Laboratory Results - last 24 hr 05/13/23 04:20: Diff Path Review Reviewed 05/14/23 07:28: Diff Path Review May , Reactive Lymphocytes RARE, Platelet Estimate MKD 05/14/23 [...] 76.8 H, Lymph % (Auto) 10.6 L, [place] % (Auto) 8.5, Eos % (Auto) 1.7, [...] start patient on norepinephrine. Consult placed to sand hauler ? 05/11/2023; patient remains in ICU did [...] - Requested for PT OT eval and psychiatric social worker to assist with discharge planning Time spent in the patient's overall evaluation,decision-making process, review of diagnostic data, adjustment of management, discussion with other providers, nursing nursing and ancillary staff involved in patient's care documentation, 35 Minutes Charges/Coding Visit Charges Inpatient E&M: 63541 Subs Hosp L2 05/15/23 0855 <Electronically signed by Conrado Morel MD> Cosigner Signature (if applicable): CC: ~ Signed [facility] Work Phone: 1(356) 488-723904-05-2024 Progress note Author Milagros Bess [facility] May 14, 2023 11:00am Note Date/Time May 14, 2023 11:0 0am [facility] Medical Records Department [address] [place] [address] Progress Note - Nephrology 05/14/23 1056 MR#: [id number] Acct: [id number] Name: ANALILIA MELENDREZ Rep #:[id number] : 1960 62 From: Milagros bourne MD PCP: ALAN Chahal tus:ADM IN Location: [place] [address] Subjective Subjective Follow-up on acute kidney injury. [...] (Auto) 75.4 H, Lymph %(Auto) 10.3 L, [place] % (Auto) 9.5, Eos % (Auto) 1.4, [...] Cosigner Signature (if applicable): CC: ~ Signed [facility] Work Phone: 1(587) 859-996104-05-2024 Consult note Author Milagros Bess [facility] May 14, 2023 10:47am Note Date/Time May 13, 2023 1:09 pm [facility] Medical Records Department [address] [place] [address] [place] [address] Consultation - Nephrology 05/13/23 1254 MR#: [id number] Acct: [id number] Name: ANALILIA MELENDREZ Rep #:[id number] : 1960 62 From: Estefany MAY PCP: ALAN Chahal tus:ADM IN Location: [place] [address] Assessment & Plan Assessment/Plan (1) MALIK (acute kidney injury): (2) Sepsis: (3) Chronic alcohol abuse: PLAN: Plan This is a 62-year-old male with past medical history significant for hypertension, hyperlipidemia, diabetes mellitus type 2, diabetic neuropathy, history of coronary artery disease status post NM, history of mechanical aortic valve replacement converted [...] time there is no acute indication for MOTORCYCLE RIDING INSTRUCTOR. Renal ultrasound did not show any evidence [...] pain. Patient was just recently admitted to [facility] from April 20 April 26 for help with alcohol detoxification, discharged to his father's home. Patient has history of hypertension, hyperlipidemia, diabetes mellitus type 2, diabetic neuropathy, history of coronary artery disease status post NM, history of mechanical aortic valve replacement converted [...] his creatinine is up to 2.85 mg/dL. [facility] Medical History AAA (abdominal aortic aneurysm) Abdominal [...] Taken 11/11/21] dapagliflozin propanediol 10 mg tablet (Dimasxiga) 10 mg PO DAILY DIABETES 09/30/21 [History [...] (Auto) 79.2 H, Lymph %(Auto) 7.4 L, [place] % (Auto) 9.6, Eos % (Auto) 2.0, [...] <Electronically signed by Milagros Bess MD> CC: TRACTOR CRANE OPERATORAstrid Pathak; Dr. Conrado Pro DO; Dr. Maya Melo MD~ Signed [facility] Work Phone: 1(496) 291-728304-05-2024 Progress note Author Conrado Morel [facility] May 14, 2023 9:55am Note Date/Time May 14, 2023 7:34 am [facility] Medical Records Department [address] [place] [address] Progress Note - Hospitalist 05/14/23 0734 MR#: [id number] Acct: [id number] Name: ANALILIA MELENDREZ Rep #:[id number] : 1960 62 From: Conrado Morel MD PCP: ALAN Chahal Sta tus:ADM IN Location: [place] [address] Reason for Visit Reason for Visit: Diagnoses [...] start patient on norepinephrine. Consult placed to sand hauler ? 05/11/2023; patient remains in ICU did [...] - Requested for PT OT eval and psychiatric social worker to assist with discharge planning Time spent in the patient's overall evaluation,decision-making process, review of diagnostic data, adjustment of management, discussion with other providers, nursing nursing and ancillary staff involved in patient's care documentation, 35 Minutes Charges/Coding Visit Charges Inpatient E&M: 34682 Subs Hosp L2 05/14/23 0955 <Electronically signed by Conrado Morel MD> Cosigner Signature (if applicable): CC: ~ Signed [facility] Work Phone: 1(470) [phone] Progress note Author Conrado Morel [facility] May 13, 2023 8:53am Note Date/Time May 13, 2023 8:50 am [facility] Medical Records Department [address] [place] [address] Progress Note - Hospitalist 05/13/23 0850 MR#: [id number] Acct: [id number] Name: ANALILIA MELENDREZ Rep #:[id number] : 1960 62 From: Conrado Morel MD [...] (Auto) 79.2 H, Lymph %(Auto) 7.4 L, [place] % (Auto) 9.6, Eos % (Auto) 2.0, [...] [facility]. If patient does not respond to fluid resuscitation plan will be to start patient on norepinephrine. Consult placed to sand hauler ? 05/11/2023; patient remains in ICU did [...] 40 Minutes Charges/Coding Visit Charges Inpatient E&M: 76070 Subs Hosp L2 05/13/23 0853 <Electronically signed by Conrado Morel MD> Cosigner Signature (if applicable): CC: ~ Signed [facility] Work Phone: 1(169) 490-505304-04-2024 Progress note Author Barryyolanda Sheehan [facility] May 13, 2023 8:28am Note Date/Time May 13, 2023 7:23 am [facility] Medical Records Department [address] [place] [address] Progress Note - Leather Worker 05/13/23 0721 MR#: [id number] Acct: [id number] Name: ANALILIA MELENDREZ Rep #:[id number] : 1960 62 From: Barry Sheehan PCP: ALAN Chahal tus:ADM IN Location: ICU [...] 7 g/dL. This note was generated with ilustrumation software. It may contain incorrectwords, spelling, and [...] (Auto) 79.2 H, Lymph %(Auto) 7.4 L, [place] % (Auto) 9.6, Eos % (Auto) 2.0, [...] flat affect Charges/Coding Visit Charges Inpatient E&M: 55436 Subs Hosp L2 05/13/23 0828 <Electronically signed by Barry Sheehan DO> Cosigner Signature (if applicable): CC: ~ Signed [facility] Work Phone: 1(276) 888-407004-03-2024 Progress note Author Barry Sheehan [facility] May 12, 2023 9:16am Note Date/Time May 12, 2023 6:48 am [facility] Medical Records Department [address] [facility] [place] [address] Progress Note - Leather Worker 05/12/23 0646 MR#: [id number] Acct: [id number] Name: ANEESHANALILIA JAMARI Rep #:[id number] : 1960 62 From: Barry Sheehan DO [...] gastroenterology consultation. This note was generated with Pcsso dictation software. It may contain incorrectwords, spelling, [...] 82.9 H, Lymph % (Auto) 5.3 L, [place] % (Auto) 8.3, Eos % (Auto) 1.9, [...] flat affect Charges/Coding Visit Charges Inpatient E&M: 46606 Subs Hosp L2 05/12/23 0916 <Electronically signed by Barry Sheehan DO> Cosigner Signature (if applicable): CC: ~ Signed [facility] Work Phone: 1(180) 894-864104-03-2024 Progress note Author Conrado Morel [facility] May 12, 2023 7:33am Note Date/Time May 12, 2023 7:17 am [facility] Medical Records Department [address] [place] [address] Progress Note - Hospitalist 05/12/23 0717 MR#: [id number] Acct: [id number] Name: ANALILIA MELENDREZ Rep #:[id number] : 1960 62 From: Conrado Morel MD PCP: ALAN Chahal Sta tus:ADM IN Location: ICU CVICU20 1- Reason [...] 82.9 H, Lymph % (Auto) 5.3 L, [place] % (Auto) 8.3, Eos % (Auto) 1.9, [...] start patient on norepinephrine. Consult placed to sand hauler ? 05/11/2023; patient remains in ICU did [...] 52 Minutes Charges/Coding Visit Charges Inpatient E&M: 45249 Subs Hosp L3 05/12/23 0722 <Electronically signed by Conrado Morel MD> Cosigner Signature (if applicable): CC: ~ Signed [facility] Work Phone: 1(217) 731-660604-03-2024 Progress note Author Iman Aguayo [facility] May 12, 2023 6:24am Note Date/Time May 12, 2023 1:57 am [facility] Medical Records Department [address] [place] [address] Progress Note - Hospitalist 05/12/23 0156 MR#: [id number] Acct: [id number] Name: ANALILIA MELENDREZ Rep #:[id number] : 1960 62 From: Iman Aguayo MD PCP: ALAN Chahal tus:ADM IN Location: ICU CVICU20 02-08 Hospitalist Note Patient lethargic, possibly component his [...] Cosigner Signature (if applicable): cc: ~* Signed [facility] Work Phone: 1(369) 987-769404-02-2024 Consult note Author Barry Sheehan [facility] May 11, 2023 9:46am Note Date/Time May 10, 2023 2:[address] [facility] Medical Records Department [address] [place] [address] Pharmacokinetic/Renal -Consult 05/10/23 1408 MR#: [id number] Acct: [id number] Name: ANALILIA MELENDREZ Rep #:[id number] : 1960 62 From: Yuri Robbins PCP: ALAN Chahals:ADM IN Y Location: ICU CVICU20 02-08 Consult Antibiotic Management Pharmacy has been consulted [...] 0946 <Electronically signed by Barry Rod O> Cosigner Signature (if applicable): Date Barry Sheehan DO CC: ~ Signed [facility] Work Phone: 1(453) 184-203604-02-2024 Progress note Author Barry Sheehan [facility] May 11, 2023 8:44am Note Date/Time May 11, 2023 7:22 am [facility] Medical Records Department [address] [place] [address] Progress Note - Leather Worker 05/11/23 0720 MR#: [id number] Acct: [id number] Name: ANALILIA MELENDREZ Rep #:[id number] : 1960 62 From: Barry Sheehan DO [...] withdrawal symptoms. This note was generated with ilustrumation software. It may contain incorrectwords, spelling, and [...] Std Deviation 63.3 H, RDW Coeff of [place] 16.2 H, Plt Count 55 L, MPV 13.1 H, Immature Gran % (Auto) 0.700, Neut % (Auto) 94.5 H, Lymph % (Auto) 2.3 L, [place] % (Auto) 2.0, Eos % (Auto) 0.0, [...] 89.8 H, Lymph % (Auto) 2.4 L, [place]% (Auto) 6.0, Eos % (Auto) 0.9, Baso [...] affect normal Charges/Coding Visit Charges Inpatient E&M: 34856 Subs Hosp L2 05/11/23 0844 <Electronically signed by Barry Sheehan DO> Cosigner Signature (if applicable): CC: ~ Signed [facility] Work Phone: 1(244) 205-240704-02-2024 Progress note Author Conrado Morel [facility] May 11, 2023 8:43am Note Date/Time May 11, 2023 7:27 am [facility] Medical Records Department [address] [place] [address] Progress Note - Hospitalist 04/04/03 725 MR#: [id number] Acct: [id number] Name: ANALILIA MELENDREZ Rep #:[id number] : 1960 62 From: Conrado Morel MD [...] reason (05/09/23) Subjective Subjective Patient transferred from [facility] to ICU after being diagnosed with [...] 94.5 H, Lymph % (Auto) 2.3 L, [place] % (Auto) 2.0, Eos % (Auto) 0.0, [...] 89.8 H, Lymph % (Auto) 2.4 L, [place]% (Auto) 6.0, Eos % (Auto) 0.9, Baso [...] start patient on norepinephrine. Consult placed to sand hauler ? 05/11/2023; patient remains in ICU did [...] 52 Minutes Charges/Coding Visit Charges Inpatient E&M: 28732 Subs Hosp L3 05/11/23 0843 <Electronically signed by Conrado Morel MD> Cosigner Signature (if applicable): CC: ~ Signed [facility] Work Phone: 1(769) 813-347004-02-2024 Progress note Author Conrado Morel [facility] May 11, 2023 7:27am Note Date/Time May 10, 2023 9:56 am [facility] Medical Records Department [address] [place] [address] Progress Note - Hospitalist 05/10/23 0953 MR#: [id number] Acct: [id number] Name: ANALILIA MELENDREZ Rep #:[id number] : 1960 62 From: Conrado Morel MD [...] 92.8 H, Lymph % (Auto) 2.7 L, [place] % (Auto) 3.2, Eos % (Auto) 0.0, [...] Sl. Cloudy, Urine pH 8.0, Ur Specific [place] 1.015, Urine Protein 100 H, Urine Glucose [...] 94.5 H, Lymph % (Auto) 2.3 L, [place] % (Auto) 2.0, Eos % (Auto) 0.0, [...] start patient on norepinephrine. Consult placed to sand hauler ? 2. Chronic alcohol dependence with acute [...] Charges/Coding Multi Select Codes Hospitalists' Procedures Procedures: 20081 Critical Care 1st Hr [place] [address] Advncd Care Plan addl 30 Min 05/10/23 5834 <Electronically signed by Conrado Morel MD> Cosigner [...] Cosigner Signature (if applicable): cc: ~* Signed [facility] Work Phone: 1(528) 227-837404-02-2024 Consult note Author Barry Sheehan [facility] May 11, 2023 7:20am Note Date/Time May 10, 2023 11:3 7am [facility] Medical Records Department [address] [place] [address] Consultation - Leather Worker 05/10/23 1129 MR#: [id number] Acct: [id number] Name: ANALILIA MELENDREZ Rep #:[id number] : 1960 62 From: Barry Sheehan DO [...] withdrawal symptoms. This note was generated with Pcsso dictation software. It may contain incorrectwords, spelling, [...] patient continues to report suprapubic abdominal discomfort. [facility] Medical History AAA (abdominal aortic aneurysm) [...] 92.8 H, Lymph % (Auto) 2.7 L, [place] % (Auto) 3.2, Eos % (Auto) 0.0, [...] Sl. Cloudy, Urine pH 8.0, Ur Specific [place] 1.015, Urine Protein 100 H, Urine Glucose [...] 94.5 H, Lymph % (Auto) 2.3 L, [place] % (Auto) 2.0, Eos % (Auto) 0.0, [...] bolus ordered Charges/Coding Visit Charges Inpatient E&M: 96477 Init Hosp L3 05/11/23 0720 <Electronically signed by Barry Sheehan DO> Cosigner Signature (if applicable): CC: ALAN Pathak; Dr. Alcides Tucker MD; Dr. Trenton Strong MD; Dr. Aramis Palacios MD; Dr. Conrado Pro DO; Dr. Barry Sheehan DO; Dr. Aldo Castellano MD; Dr. [place] Kear[place] MD; Dr. Mundo Marcelino MD; Dr. Meli Miles MD; Dr. Tiara Horowitz MD; Dr. Jsoe Pacheco MD; Dr. Yunier Allred MD; Dr. Marquez Elmore MD; Dr. Bronson Peterson MD; Dr. Toni Dodge MD; Dr. Chen Merrill MD~ Signed [facility] Work Phone: 1(605) 126-636404-01-2024 History and physical note Author Conrado [facility] May 10, 2023 3:29am Note Date/Time May 09, 2023 8:3 7pm [facility] Medical Records Department [address] [place] [address] H&P Exam - Hospitalist 05/09/232033 MR#: [id number] Acct: [id number] Name: ANALILIA MELENDREZ Rep #:[id number] : 1960 62 From: Conrado Gonzalez DO PCP: ALAN Chahal tus:ADM IN [facility] - General General Date of Admission: [...] history of coronary artery disease; status post NM, history of mechanical aortic valve replacement (2014); converted to a bioprosthetic valve (2017), is [...] with patient offered to go to a detention facility upon discharge which he refused to so he could be discharged to his father's home whonow re-presents to [facility] ER complaining of abdominal pain. Unfortunately, [...] expected to be greater than 48 hours. [facility] Medical History AAA (abdominal aortic aneurysm) [...] Taken 11/11/21] dapagliflozin propanediol 10 [facility] ([facility] 10 mg PO DAILY DIABETES 09/30/21 [History [...] 92.8 H, Lymph % (Auto) 2.7 L, [place] % (Auto) 3.2, Eos % (Auto) 0.0, [...] Sl. Cloudy, Urine pH 8.0, Ur Specific [place] 1.015, Urine Protein 100 H, Urine Glucose [...] the left lung base. Electronically Signed: Jayesh Luwdig MD at 14:50 EDT , Abdomen/Pelvis CT 05/09/23 15:32 IMPRESSION: Fatty hepatic changes with small hypoattenuated nodule. Moderate ascites. Mild wall thickening of the urinary bladder. Possible mild small bowel ileus. Electronically Signed: Cade Jaramillo DO at 16:54 EDT Reading Location ID and State: [facility] / [place] Tel [phone], Service support , Assessment & Plan Assessment/Plan (1) Acute [...] protocol focusing mainly on phenobarbital taper. 3. Uvucp-mx-pjvkwol severe protein calorie malnutrition with hypoalbuminemia of1.5 [...] (allegedly quit 10 years ago) - Check [place] urine drug screen this admission. 11. History of coronary artery disease; status post NM - Stable. Continue homeregimen as previous. 12. [...] 75 minutes. Charges/Coding Visit Charges Inpatient E&M: 49046 Init Hosp L3 05/10/23 0329 <Electronically signed by Conrado Pro DO> Cosigner Signature (if applicable): CC: ALAN Pathak; Dr. Conrado Pro DO~ Signed [facility] Work Phone: 1(165) 311-581404-01-2024 Discharge summary Author Carlos Augustin [facility] May 09, 2023 10:05pm Note Date/Time May 09, 2023 1:5 6pm [facility] Medical Records Department [address] [place] [address] Emergency Department Summary 05/09/23 MR#: [id number] Acct: [id number] Name: ANALILIA MELENDREZ Rep #:[id number] : 1960 62 From: Carlos Augustin MD PCP: ALAN Chahal tus:ADM IN Location: [address] <ALAN Dick - Last Filed: 05/09/23 20:40> [...] discharge was offered to go to a detention facility secondary to the weakness as well [...] evaluation for acute on chronic abdominal pain. PFS <ALAN Dick - Last Filed: 05/09/23 20:40> [facility] Medical History AAA (abdominal aortic aneurysm) [...] <ALAN Dick - Last Filed: 05/09/23 20:40> [facility] Lab Data Labs: Laboratory Results - last [...] 92.8 H Lymph % (Auto) 2.7 L [place] % (Auto) 3.2 Eos % (Auto) 0.0 [...] Sl. Cloudy Urine pH 8.0 Ur Specific [place] 1.015 Urine Protein 100 H Urine Glucose [...] Comments: Sinus tachycardia, rate of 40 bpm, RI interval 112 ms, QRS duration 100 ms, [...] Augustin MD - Last Filed: 05/09/23 17:14> [facility] MDM Narrative Medical decision making narrative: I [...] tenderness, no guarding or rebound tenderness. No Brighton sign or Huizar Gillespie sign. No CVA [...] 92.8 H Lymph % (Auto) 2.7 L [place] % (Auto) 3.2 Eos % (Auto) 0.0 [...] Sl. Cloudy Urine pH 8.0 Ur Specific [place] 1.015 Urine Protein 100 H Urine Glucose [...] Chief Complaint: Abd Pain ED Midlevel Provider: Jacky Arevalo ED Provider: Carlos Augustin Dx/Rx/DC Orders [...] Provider: Andreas Pathak NP Referrals: Andreas Pathak TRACTOR CRANE OPERATOR, TRACTOR CRANE OPERATOR-C [Primary Care Provider] - Disposition Disposition: Acute Care Hospital [facility] What to do if you have Problems For any increased pain, shortness of breath, bleeding, nausea or vomiting, chestpain, or any unexpected problems, contact your Primary Care Provider. Call [facility] ([phone]) or report to the closest Emergency Room. Call 911 if necessary. 05/09/232204 <Electronically signed by Carlos Augustin MD> Cosigner Signature (if applicable): 05/09/232039 <Electronically signed by Jacky MAY> CC: TRACTOR CRANE OPERATORAstrid Pathak ~ Signed [facility] Work Phone: 1(749) 232-289503-31-2024 Discharge summary Author Carlos Augustin [facility] May 09, 2023 10:05pm Note Date/Time May 09, 2023 1:5 6pm [facility] Medical Records Department [address] [place] [address] Emergency Department Summary 05/09/23 MR#: [id number] Acct: [id number] Name: ANALILIA MELENDREZ Rep #:[id number] : 1960 62 From: Carlos Augustin MD PCP: ALAN Chahal tus:ADM IN Location: [address] <ALAN Dick - Last Filed: 05/09/23 20:40> [...] discharge was offered to go to a detention facility secondary to the weakness as well [...] evaluation for acute on chronic abdominal pain. [facility] <ALAN Dick - Last Filed: 05/09/23 [...] Taken 11/11/21] dapagliflozin propanediol 10 mg tablet (Dimasxiga) 10 mg PO DAILY DIABETES 09/30/21 [History [...] <ALAN Dick - Last Filed: 05/09/23 20:40> [facility] Lab Data Labs: Laboratory Results - last [...] 92.8 H Lymph % (Auto) 2.7 L [place] % (Auto) 3.2 Eos % (Auto) 0.0 [...] Sl. Cloudy Urine pH 8.0 Ur Specific [place] 1.015 Urine Protein 100 H Urine Glucose [...] Comments: Sinus tachycardia, rate of 40 bpm, RI interval 112 ms, QRS duration 100 ms, [...] Augustin MD - Last Filed: 05/09/23 17:14> [facility] Narrative Medical decision making narrative: I have [...] or rebound tenderness. No Narayan sign or Huiazr Gillespie sign. No CVA tenderness. Norespiratory distress [...] 92.8 H Lymph % (Auto) 2.7 L [place] % (Auto) 3.2 Eos % (Auto) 0.0 [...] Sl. Cloudy Urine pH 8.0 Ur Specific [place] 1.015 Urine Protein 100 H Urine Glucose [...] Chief Complaint: Abd Pain ED Midlevel Provider: Jacky Arevalo ED Provider: Carlos Augustin Dx/Rx/DC Orders [...] Andreas Pathak NP Referrals: Andreas Pathak NP, TRACTOR CRANE OPERATOR-C [Primary Care Provider] - Disposition Disposition: Acute Care Hospital [facility] What to do if you have Problems For any increased pain, shortness of breath, bleeding, nausea or vomiting, chestpain, or any unexpected problems, contact your Primary Care Provider. Call [facility] ([phone]) or report to the closest Emergency Room. Call 911 if necessary. 05/09/232204 <Electronically signed by Carlos uAgustin MD> Cosigner Signature (if applicable): 05/09/232039 <Electronically signed by Jacky MAY> CC: TRACTOR CRANE OPERATORAstrid Pathak ~ Signed [facility] Work Phone: 1(612) 643-591403-18-2024 Progress note [facility] April 26, 2023 3:53pm Note Date/Time April 26, 2023 11: 09am [facility] Medical Records Department [address] [place] [address] Progress Note 04/26/23 1105 MR#: [id number] Acct: [id number] Name: ANALILIA MELENDREZ Rep #:[id number] : 1960 62 From: Ashley Alvarado MD PCP: ALAN Chahal tus:ADM IN Location: SD3 OB965-3 Subjective Subjective Patient seen and examined. He [...] Awaiting placement. Charges/Coding Visit Charges Inpatient E&M: 49545 Subs Hosp L2 04/26/23 1553 <Electronically signed by Ashley Alvarado MD> Ashley Alvarado MD Cosigner Signature (if applicable): CC: ~ Signed [facility] Work Phone: 1(591) 897-830103-17-2024 Progress note Author Ashley [facility] April 25, 2023 2:40pm Note Date/Time April 25, 2023 11: 41[facility] Medical Records Department [address] [place] [address] Progress Note 04/25/23 1135 MR#: [id number] Acct: [id number] Name: ANALILIA MELENDREZ Rep #:[id number] : 1960 62 From: Ashley Alvarado MD PCP: Andreas Pathak, TRACTOR CRANE OPERATORMiahC Sta tus:ADM IN Location: [place] [address] Subjective Subjective Patient seen and examined. He [...] Awaiting placement. Charges/Coding Visit Charges Inpatient E&M: 32193 Subs Hosp L2 04/25/23 1440 <Electronically signed by Ashley Alvarado MD> Ashley Alvarado MD Cosigner Signature (if applicable): CC: ~ Signed [facility] Work Phone: 1(799) 927-789103-16-2024 Progress note Author Ashley [facility] April 24, 2023 4:53pm Note Date/Time April 24, 2023 11: 10am [facility] Medical Records Department [address] [place] [address] Progress Note 04/24/23 1108 MR#: [id number] Acct: [id number] Name: ANALILIA MELENDREZ Rep #:[id number] : 1960 62 From: Ashley Alvarado MD PCP: ALAN Chahal Sta tus:ADM IN [facility] Subjective Subjective Patient seen and examined. He [...] Awaiting placement. Charges/Coding Visit Charges Inpatient E&M: 73193 Subs Hosp L2 04/24/23 9554 <Electronically signed by Ashley Alvarado MD> Ashley Alvarado MD Cosigner Signature (if applicable): CC: ~ Signed [facility] Work Phone: 1(785) 167-429303-15-2024 Progress note Author Ashley [facility] April 23, 2023 3:29pm Note Date/Time April 23, 2023 3:2 1pm [facility] Medical Records Department [address] [facility] [place] [address] Progress Note 04/23/23 1519 MR#: [id number] Acct: [id number] Name: ANALILIA MELENDREZ Rep #:[id number] : 1960 62 From: Ashley Alvarado MD PCP: Andreas Pathak TRACTOR CRANE OPERATORMiahC Sta tus:ADM IN [facility] Subjective Subjective Patient seen and examined. She [...] 04/23/23 13:00 04/23/23 13:00 04/23/23 13:00 04/23/23 13:04/23/23 14:00 04/22/23 22:00 Oxygen Flow Rate (L/min) [...] on board. Charges/Coding Visit Charges Inpatient E&M: 03140 Subs Hosp L2 04/23/23 7430 <Electronically signed by Ashley Alvarado MD> Ashley Alvarado MD Cosigner Signature (if applicable): CC: ~ Signed [facility] Work Phone: 1(976) 914-412903-15-2024 Consult note Author Yuri Robbins [facility] April 23, 2023 11:46am Note Date/Time April 23, 2023 11: 46am [facility] Medical Records Department [address] [place] [address] Counseling Note - Pharmacy 04/23/23 1146 MR#: [id number] Acct: [id number] Name: ANALILIA MELENDREZ Rep #:[id number] : 1960 62 From: Yuri Robbins PCP: ALAN Chahal tus:ADM IN Y Location: [place] [address] Pharmacy [place] Med Reconciliation Pharmacy Service has performed discharge [...] Signature (if applicable): Date CC: ~ Signed [facility] Work Phone: 1(574) 594-580103-15-2024 Consult note Author Yuri Robbins [facility] April 23, 2023 11:45am Note Date/Time April 23, 2023 11: 45am [facility] Medical Records Department [address] [place] [address] Counseling Note - Pharmacy 04/23/23 1145 MR#: [id number] Acct: [id number] Name: ANALILIA MELENDREZ Rep #:[id number] : 1960 62 From: Yuri Robbins PCP: ALAN Chahal tus:ADM IN Y Location: [place] [address] Pharmacy [place] Med Reconciliation Pharmacy Service has performed discharge [...] _ Yuri Robbins Cosigner Signature (if applicable): CC: ~ Signed [facility] Work Phone: 1(522) 408-320303-15-2024 Discharge summary Author Ashley Alvarado [facility] April 23, 2023 11:44am Note Date/Time April 23, 2023 11: 40am [facility] Medical Records Department [address] [place] [address] Instructions for Home/Discharge Instructions 04/23/23 1139 MR#: [id number] Acct: [id number] Name: ANALILIA MELENDREZ Rep #:[id number] : 1960 62 From: Ashley Alvarado MD [...] Pathak; Dr. Lucas Frausto MD ~ Signed [facility] Work Phone: 1(558) 854-635003-14-2024 Progress note Author [facility] April 22, 2023 3:41pm Note Date/Time April 22, 2023 11: [address] [place] [address] Health System Medical Records Department [address] [place] [address] Progress Note 04/22/23 1112 MR#: [id number] Acct: [id number] Name: DARRINANALILIA VERNON JAMARI Rep #:[id number] : 1960 62 From: Ashley Alvarado MD PCP: ALAN Chahal Sta tus:ADM IN Location: [facility] KI828-6 Subjective Subjective Patient seen and examined. He [...] Clarity Clear, Urine pH 8.0, Ur Specific [place] 1.015, Urine Protein 15 H, Urine Glucose [...] Encourage ambulation. Charges/Coding Visit Charges Inpatient E&M: 99308 Subs Hosp L2 04/22/23 1541 <Electronically signed by Ashley Alvarado MD> Ashley Alavrado MD Cosigner Signature (if applicable): CC: ~ Signed [facility] Work Phone: 1(685) 440-431903-13-2024 Progress note Author Ashley Alvarado [facility] April 21, 2023 4:06pm Note Date/Time April 21, 2023 2:5 4pm [facility] Medical Records Department [address] [place] [address] Progress Note 04/21/23 1449 MR#: [id number] Acct: [id number] Name: ANALILIA MELENDREZ Rep #:[id number] : 1960 62 From: Ashley Alvarado MD PCP: ALAN Chahal tus:ADM IN Location: [place] [address] Subjective Subjective Patient seen and examined. HE [...] 76.5 H, Lymph % (Auto) 11.2 L, [place] % (Auto) 10.2 H, Eos % (Auto) [...] (MDRD) Non-Af 69, BUN/Creatinine Ratio 5.2 L, Rdhgjei586, Calcium 7.3 L, Total Bilirubin 1.00, AST [...] Encourage ambulation. Charges/Coding Visit Charges Inpatient E&M: 76102 Subs Hosp L2 04/21/23 1606 <Electronically signed by Ashley Alvarado MD> Ashley Alvarado MD Cosigner Signature (if applicable): CC: ~ Signed [facility] Work Phone: 1(940) 949-462703-12-2024 History and physical note Author Lucas Frausto [facility] April 20, 2023 7:17pm Note Date/Time April 20, 2023 3:2 9pm [facility] Medical Records Department [address] [place] [address] H&P Exam - Hospitalist 04/20/23 1526 MR#: [id number] Acct: [id number] Name: ANALILIA MELENDREZ Rep #:[id number] : 1960 62 From: Lucas loyola MD PCP: ALAN Chahal tus:ADM IN [facility] HPI - General General Date of Admission: [...] ascitic fluid which was not present in [address] of the chest. He [...] having some anxiety as well as tremors. [facility] Medical History AAA (abdominal aortic aneurysm) [...] with colleagues Charges/Coding Visit Charges Inpatient E&M: 47347 Init Hosp L3 04/20/231916 <Electronically signed by Lucas Frausto MD> Cosigner Signature (if applicable): CC: ALAN Pathak; Dr. Lucas Frausto MD~ Signed [facility] Work Phone: 1(651) 123-364003-12-2024 Discharge summary Author Chris Call [facility] April 20, 2023 4:43pm Note Date/Time April 20, 2023 11: 43am [facility] Medical Records Department [address] [facility] [place] [address] Emergency Department Summary 04/20/23 MR#: [id number] Acct: [id number] Name: ANALILIA MELENDREZ Rep #:[id number] : 1960 62 From: Chris Harvey PCP: Andreas Pathak, TRACTOR CRANE OPERATOR-C Sta tus:ADM IN Location: MS3 NX610-6 HPI HPI - GI History of Present [...] clinician: Hospitalist This note was generated with Pcsso dictation software. It may contain incorrectwords, spelling, [...] Alcoholic hepatitis Disposition Disposition: Acute Care Hospital [facility] Discharge Date/Time: 04/20/23 16:21 What to do if you have Problems For any increased pain, shortness of breath, bleeding, nausea or vomiting, chestpain, or any unexpected problems, contact your Primary Care Provider. Call [facility] ([phone]) or report to the closest Emergency Room. Call 911 if necessary. 04/20/23 1643 <Electronically signed by Chris Harvey> Cosigner Signature (if applicable): CC: ALAN Pathak ~ Signed [facility] Work Phone: 1(416) 244-843502-19-2024 Evaluation + Plan note Future Scheduled Tests [...] Radiology* US Elastography Liver w/ABD Complete 03/05/23 [facility] 02-19-2024 Evaluation + Plan note Future Scheduled Tests Laboratory* Calcium Level Ionized 03/29/23 * Prostate Specific Antigen 07/14/23 * Reticulocytes (AO) 03/29/23 * A1C Hemoglobin 07/14/23 * Complete Blood Count 03/29/23 * Complete Blood Count 07/14/23 * Lipid Profile 07/14/23 * Albumin/Creatinine Ratio, Random Urine 07/14/23 * PTH, Intact 07/14/23 * Vitamin D Level 07/14/23 * Complete Metabolic Panel 07/14/23 [facility] 02-10-2024 Note. MICRO - Microbiology [...] Locations *1: This test was performed at: [facility], [address] [place] [address], [facility] , [facility] ([place]03-20-2023 Note. MICRO - Microbiology PROCEDURE: Blood Culture [...] Locations *1: This test was performed at: [facility], [address] [place] [address], [address] , [facility] ([place]03-19-2023 Hospital Discharge instructions Patient Education 03/19/2023 11:39:35 [...] depending on your insurance coverage. Check with yourPcsso company about what is covered. Keeping follow-up [...] 04/30/2017 Document Revised: 01/28/2018 Document Reviewed: 04/30/2017 [employer] Patient Education 2020 [employer]. 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 chronic [facility] Work Phone: evaluation note* Diagnosis Onset Date Resolution Status Non-sustained ventricular tachycardia acute Cardiac pacemaker in situ 2017 ch ronic Sick sinus syndrome chronic Acute hypokalemia acute ETOH abuse acute History of diabetes mellitus acute Hx of hypercholesterolemia a cute Hypokalemia acute Withdrawn from alcohol detoxification program acute Diabetes mellitus, type II c hronic HTN (hypertension) chronic Tobacco use chronic [facility] Work Phone: Evaluation note* Diagnosis Onset Date Resolution Status Acute hypokalemia acute ETOH abuse acute HTN (hypertension) chronic Hypokalemia resolved ETOH abuse acute Alcohol withdrawal resolved Desire for detoxification re solved Acute hypokalemia acute Alcohol withdrawal acute Desire for detoxification [place] ETOH abuse acute Nausea & vomiting acute [facility] Work Phone: Evaluation note* Diagnosis Onset Date Resolution Status Alcohol withdrawal resolved Nausea & vomiting resolved Acute dehydration acute Admitted to alcohol detoxification center acute Alcohol abuse acute Alcohol withdrawal acute History of diabetes mellitus acute [facility] Work Phone: Evaluation noteNo assessment information available [facility] Work Phone: Evaluation note* Diagnosis Onset Date Resolution Status Abdominal ascites acute Alcohol abuse acute Alcohol dependence acute Alcoholic hepatitis acute Gastric wall thickening acut e Chronic pancreatitis [facility] Work Phone: Evaluation note* Diagnosis Onset Date Resolution Status Acute cystitis without hematuria acute Acute UTI acute Alcohol withdrawal acute Chronic pancreatitis due to chronic alcoholism acute Hypoxia acute Intractable abdominal pain a cute Medically noncompliant acute Pleural effusion acute Protein-calorie malnutrition, severe acute Chronic alcohol abuse chroni c [facility] Work Phone: Evaluation note* Diagnosis Onset Date Resolution Status Acute cystitis without hematuria acute Acute UTI acute MALIK (acute kidney injury) [place] Alcohol withdrawal acute Chronic pancreatitis due to chronic alcoholism acute Hypoxia acute Intractable abdominal pain a cute Medically noncompliant acute Pleural effusion acute Protein-calorie malnutrition, severe acute Sepsis acute Chronic alcohol abuse chroni c HTN (hypertension) [facility] Work Phone: Evaluation note* Diagnosis Anemia, unspecified type- Primary [facility] Diagnosis Type 2 diabetes mellitus [...] specified viral diseases [facility] Diagnosis Diarrhea of presumed infectious origin- Primary Generalized abdominal pain Abdominal pain, generalized [facility] Diagnosis Anemia, unspecified type- Primary Chronic diarrhea Diarrhea documented in this encounter [facility] note* Diagnosis Generalized abdominal pain- Primary Abdominal [...] Tobacco use disorder [facility]* Diagnosis 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 difficile diarrhea Intestinal infection due to clostridium difficile E. coli UTI Urinary tract infection, site not specified documented in this encounter [facility] note* Diagnosis Generalized abdominal pain Abdominal pain, generalized Diarrhea of presumed infectious origin Weight loss Loss of weight Anemia, unspecified type History of alcohol abuse Nondependent alcohol abuse, in remission Elevated liver enzymes Other nonspecific abnormal serum enzyme levels documented in this encounter [facility] note* Diagnosis E. coli UTI Urinary tract infection, site not specified CKD stage 3 secondary to diabetes ([facility]) Medically complex patient Unspecified conditions influencing health status Anemia, unspecified type documented in this encounter [facility] note* Diagnosis Diarrhea, unspecified type- Primary Acute pancreatitis, unspecified complication status, unspecified pancreatitis type CKD stage 3 secondary to diabetes ([facility]) Medically complex patient Unspecified conditions influencing health status Anemia, unspecified type documented in this encounter [facility] note* Diagnosis Anemia, unspecified type- Primary Diarrhea of presumed infectious origin CKD stage 3 secondary to diabetes ([facility]) Medically complex patient Unspecified conditions influencing health status documented [facility] this [facility]* Diagnosis Diarrhea, unspecified type Acute pancreatitis, unspecified complication status, unspecified pancreatitis type documented in this encounter [facility] note* Diagnosis Diarrhea, unspecified type- Primary Acute pancreatitis, unspecified complication status, unspecified pancreatitis type documented in this encounter [facility] note* Diagnosis Diarrhea, unspecified type Acute pancreatitis, unspecified complication status, unspecified pancreatitis type [facility] Diagnosis Anemia, unspecified type- Primary Weight loss Loss of weight Chronic pancreatitis, unspecified pancreatitis type ([facility]) Epigastric pain Abdominal pain, epigastric Right lower quadrant abdominal pain Abdominal pain, right lower quadrant documented in this encounter [facility] note* Diagnosis Primary hypertension- Primary Unspecified essential hypertension Type 2 diabetes mellitus with complication, with long-term current use of insulin ([facility]) Stage 3 chronic kidney disease, unspecified whether stage 3a or 3b CKD ([facility]) Hyperlipidemia, mixed Mixed hyperlipidemia Gastroesophageal reflux disease, unspecified whether esophagitis present Chronic pancreatitis, unspecified pancreatitis type ([facility]) Anemia, unspecified type documented in this encounter [facility] note* Diagnosis Anemia, unspecified type documented in this encounter [facility] note* Diagnosis Anemia, unspecified type- Primary documented in this encounter [facility] note* Diagnosis Gastroesophageal reflux disease, unspecified whether esophagitis present documented in this encounter [facility] note* Diagnosis Type 2 diabetes mellitus with complication, with long-term current use of insulin (HCC)- Primary Hyperlipidemia LDL goal <100 Other and unspecified hyperlipidemia Primary hypertension Unspecified essential hypertension documented in this encounter [facility] note* Diagnosis Type 2 diabetes mellitus with complication, with long-term current use of insulin (HCC) documented in this encounter [facility] note* Diagnosis Anemia, unspecified type Weight loss Loss of weight Chronic pancreatitis, unspecified pancreatitis type (HCC) Epigastric pain Abdominal pain, epigastric documented in this encounter [facility] note* Diagnosis Hyperlipidemia LDL goal <100 Other and unspecified hyperlipidemia Primary hypertension Unspecified essential hypertension documented in this encounter [facility] note* Diagnosis Anemia, unspecified type- Primary 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) documented in this encounter [facility] note* Diagnosis Primary hypertension Unspecified essential hypertension documented in this encounter [facility] note* Diagnosis Primary hypertension Unspecified essential hypertension Gastroesophageal reflux disease, unspecified whether esophagitis present documented in this encounter [facility] note* Diagnosis Onset Date Resolution Status Admit Date Adverse drug reaction acute June 25, 2024 10:15pm Ascites due to alcoholic cirrhosis acute June 25, 2024 1 0:15pm Hypokalemia acute June 25 10:15pm Lactic acidosis acute June 25, 2024 10:15pm Chronic alcohol abuse chronic June 25, 2024 10:15pm Chronic diarrhea chronic June 10:15pm [facility] Work Phone: Evaluation note* Diagnosis Chronic diarrhea Diarrhea Irritable bowel syndrome, unspecified type Hyperlipidemia LDL goal <100 Other and unspecified hyperlipidemia documented in this encounter [facility] note* Diagnosis Primary hypertension Unspecified essential hypertension documented in this encounter [facility] note* Diagnosis Nonrheumatic aortic valve stenosis- Primary Aortic valve disorders documented in this encounter [facility] note* Diagnosis Nonrheumatic aortic valve stenosis- Primary Aortic valve disorders [facility]o [facility] March 21, 2022 6:31pm Note Date/Time March 21, 2022 6:06pm [facility] Medical Records Department [address] [place] [address] H&P Exam - Hospitalist 03/21/22 1831 MR#: [id number] Acct: [id number] Name: ANALILIA MELNEDREZ Rep #:[id number] : 1960 61 From: Iman Aguayo MD PCP: Andreas Pathak, ALAN Ball tus:ADM IN Location: [facility] [id number] HPI - General General Date of Admission: [...] recently 02/01/22 who now re-presents to the [facility] ED on 03/21/22 with history of [...] alcohol upon requested evaluation, POC glucose 337. [facility] Medical History Acute hypokalemia Adrenal nodule [...] recently 02/01/22 who now re-presents to the [facility] ED on 03/21/22 with history of [...] 75 minutes. Charges/Coding Visit Charges Inpatient E&M: 55835 Init Hosp L3 03/21/22 1831 <Electronically signed by Iman Aguayo MD> Cosigner Signature (if applicable): CC: TRACTOR CRANE OPERATOR-C Andreas Pathak; Dr. Iman Aguayo MD~ Signed [facility] Work Phone: History and physical note Author Melonie De La Rosa [facility] Note Date/Time July 11, 2024 3:21p m [facility] Medical Records Department [address] [place] [address] H&P Exam - Hospitalist 07/11/24 1405 MR#: [id number] Acct: [id number] Name: ANALILIA MELENDREZ Rep #:[id number] : 1960 63 From: Melonie De La Rosa DO PCP: ALAN Wilde Status:REG E R Location: ED HPI - General General Date of Admission: 07/11/24 Date of Service: 07/11/24 Chief Complaint: Suicidal ideation/nausea vomiting HPI Narrative ANALILIA MELENDREZ, is a 63 M who presented to the emergency department at [facility] on 07/11/2024 with a chief complaint [...] discussed with Dr. Fontanez prior to admission. [facility] Medical History Thrombocytopenia Chronic pancreatitis Macrocytosis [...] reflux #60 tabs 06/27/23 Unknown Rx release vzqqky-hitsrttj-xooaili 1 cap PO TIDCM #90 caps 06/09 [...] Clarity Clear, Urine pH 8.0, Ur Specific [place] 1.010, Urine Protein 15 H, Urine Glucose [...] 74.9 H, Lymph % (Auto) 15.4 L, [place] % (Auto) 7.7, Eos % (Auto) 0.4, [...] with compressive atelectasis. Reading Location: [facility] Assessment & Plan Assessment/Plan (1) [...] need ALBERT and probable referral to a [facility] - Outpatient follow-up here with cardiology after [...] Had thoracic dissection and was treated at [facility] History of heroin abuse - Remote [...] Full code Charges/Coding Visit Charges Inpatient E&M: 44308 Init Hosp L2 07/11/24 1526 <Electronically signed by Melonie Rj DO> Cosigner Signature (if applicable): CC: ALAN Wagner; Dr. Melonie De La Rosa, ~ Signed [facility] Work Phone: History and physical note Author Jacky Vila [facility] Note Date/Time August 29, 2024 12:3 3am [facility] Medical Records Department [address] [place] [address] History & Physical Exam 08/29/24 0019 MR#: [id number] Acct: [id number] Name: ANALILIA MELENDREZ Rep #:[id number] : 1960 64 From: Jacky Vila MD PCP: Sigrid Call DO Status:REG [...] of anemia, ascites and alcohol abuse, pancreatitis, NM, diabetes, aortic valve replaced with a bovine [...] will be admitted here in the hospital. [facility] Medical History Malnutrition Pancytopenia Medically noncompliant [...] #60 tabs 08/03/24 Unknown Rx tablet (Entresto) pwvoot-kzwpiomw-mnaezyd 1 cap PO BIDCM 08/29/24 Unkn own [...] % (Auto) 68.3, Lymph % (Auto) 21.3, [place] % (Auto) 7.6, Eos % (Auto) 1.4, [...] Clarity Clear, Urine pH 7.0, Ur Specific [place] 1.010, Urine Protein Negative, Urine Glucose (UA) [...] pneumonia. 2. Bilateral pleural effusions. Reading Location: [facility] Assessment & Plan Assessment/Plan (1) Medically noncompliant: [...] the a.m. Charges/Coding Visit Charges Inpatient E&M: 46311 Init Hosp L2 08/29/24 0033 <Electronically signed by Jacky Vila MD> Cosigner Signature (if applicable): CC: Dr. Jacky Vila MD; Sigrid Call DO~ Signed [facility] Work Phone: History and physical note Author Diana Willoughby [facility] Note Date/Time October 12, 2024 4:20pm [facility] Medical Records Department [address] [place] [address] H&P Exam - Hospitalist 10/12/24 1609 MR#: [id number] Acct: [id number] Name: ANALILIA MELENDREZ Rep #:[id number] : 1960 64 From: Diana Willoughby MD PCP: Sigrid Call DO Status:ADM IN Location: [facility] [id number] HPI - General General Date of Admission: 10/12/24 Date of Service: 10/12/24 Chief Complaint: Shortness of breath HPI Narrative ANALILIA MELENDREZ, is a 64-year-old male with a history of alcohol abuse, chronic pancreatitis, AAA, sick sinus syndrome status post PPM, GERD, CHF, diabetes, chronic hypoxic respiratory failure, history of para and thoracentesis who presented to [facility] ED 11/02 with complaints of shortness ofbreath and increased swelling in lower extremities that is worsened over the past several days and has not missed any doses. In the ED temp 97.2, heart [id number] with blood pressure 142/102, respiratory rate 29 and pulse ox 93% on 2 L nasal cannula. CBC with a white count of 4.5 and a hemoglobin of 11, BMP only notable for glucose of 241. BNP found to be 50,000 and troponin of 105 with a repeat of 91. Chest x-ray with bilateral pleural effusions right greater than left with bibasilar compressive atelectasis. Patient also had a CT of the abdomen and pelvis which showed bilateral pleural effusions right greater than left with dependent bibasilar atelectasis, diffuse pancreatic calcifications consistent with chronic pancreatitis and no other acute process. Patient still short of breath though has been able to be maintained on his home oxygen, hospitalist contacted for admission for heart failure exacerbation. Patient evaluated bedside. He reports the increased shortness of breath and lower extremity swelling over several days with last night having significant shortness of breath. Does report previous thoracentesis and has had several reports he needs them every couple of months. Has some epigastric pain that he reports goes along with his chronic pancreatitis. Denies any cough or shortnessof breath, no bowel or bladder changes [facility] Medical History Chronic pancreatitis Chronic pancreatitis due to chronic alcoholism Malnutrition Pancytopenia Medically noncompliant Thrombocytopenia Macrocytosis associated with alcohol Ascites due to [...] nt 06/30/24 07/31/24 History iron) tablet (FeroSul) spironolactone 25 mg tablet 25 mg PO DAILY diuretic 30 days 07/06/24 07/31/24 Rx Held on 09/04/24. #30 tabs Instructions: Resume on 09/14/24. L.acidophil,salivari-Bifido 1 cap PO BID Probiotic 07/31/24 History bifidum-Strep thermoph 175 mg capsule furosemide 20 mg tablet 40 mg (2 x 20 mg) PO DAILY 3 0 days 08/03/24 Unknown Rx #60 tabs sacubitril 24 mg-valsartan 26 mg 1 tab PO BID #60 tabs 08/03/24 Unknown Rx tablet (Entresto) qhtfxm-bjewixzh-yhjxosk 1 cap PO BIDCM 08/29/24 Unkn own History 24,000-76,000-120,000 unit capsule,delayed rel (Creon) metoprolol succinate 25 mg 25 mg PO DAILY blood pressu re #30 10/12/24 Unknown Rx tablet,extended release 24 hr tabs Allergy/AdvReac Type Severity Reaction Status Date / Time No Known Allergies Allergy Verified 10/10/24 14:24 Family History Father CAD (coronary artery disease) [...] Number of servings: 3 ROS ROS Narrative General: Denies fever/chills HENT: Has a little bit of a headache, denies stuffy nose, denies sore throat EYES: Denies changes in vision Resp: Denies cough, worsening shortness of breath Cardiac: Denies chest pain GI: Some epigastric pain, denies changes in bowel, denies nausea/vomiting : Denies changes in urination Extremity: Increased swelling in lower extremities MSK: Denies weakness Neuro: Denies any numbness/tingling Heme: Easy bruising Skin: Denies rashes Psychiatric: No complaints voiced Vital Signs Vital Signs Vital Signs: 10/12/24 09:49 10/12/24 09:56 10/12/24 11:17 Temperature 97.2 F L Temperature Source Temporal Pulse Rate 100 Respiratory Rate 29 H Respiratory Effort Normal Non-Labored Respiratory Depth Normal Respiratory Pattern Normal Blood Pressure 142/102 H Blood Pressure Mean 115 Pulse Ox 93 Oxygen Delivery Method Nasal Cannula Room Air Oxygen Flow Rate (L/min) 2 10/12/24 11:25 10/12/24 13:00 10/12/24 15:50 Temperature Temperature Source Pulse Rate 102 H 81 105 H Respiratory Rate 32 H 18 19 H Respiratory Effort Respiratory Depth Respiratory Pattern Blood Pressure 122/94 H 128/96 H 124/94 H Blood Pressure Mean 103 106 104 Pulse Ox 95 96 83 Oxygen Delivery Method Nasal Cannula Room Air Oxygen Flow Rate (L/min) 2 10/12/24 15:50 10/12/24 15:51 10/12/24 15:51 Temperature 98.9 F 98.9 F Temperature Source Oral Pulse Rate 105 H 104 H 104 H Respiratory Rate 19 H 20 H 28 H Respiratory Effort Respiratory Depth Respiratory Pattern Blood Pressure 124/94 H 124/94 H Blood Pressure Mean 104 104 Pulse Ox 85 85 86 Oxygen Delivery Method Nasal Cannula Nasal Cannula Oxygen Flow Rate (L/min) 2 3 10/12/24 15:58 Temperature Temperature Source Pulse Rate 109 H Respiratory Rate 26 H Respiratory Effort Respiratory Depth Respiratory Pattern Blood Pressure Blood Pressure Mean Pulse Ox 97 Oxygen Delivery Method Nasal Cannula Oxygen Flow Rate (L/min) 3 Weight Weight: 69 kg Body Mass Index (BMI) 21.8 Physical Exam Narrative General: Alert, oriented HEENT: Atraumatic, normocephalic Eyes: Anicteric, normal conjunctiva, extraocular movements grossly intact Neck: Supple Respiratory: Increased respiratory effort, diminished at the bases Cardiovascular: Low-grade sinus tachycardia GI: Soft, slightly tender in the epigastric region, no rebound, guarding, rigidity, nondistended Extremities: 2-3+ bilateral lower extremity pitting edema Musculoskeletal: Moving all extremities Neuro: No overt focal neurological deficits Skin: Scattered bruising Psych: Cooperative Results Lab / Micro Data 10/12/24 10:12 10/12/24 10:12 Labs: Laboratory Results - last 24 hr 10/12/24 10:12: WBC 4.5, RBC 3.43 L, Hgb 11.0 L, Hct 34.4 L, MCV 100.3 H, MCH 32.1 H, MCHC 32.0, RDW Std Deviation 62.1 H, RDW Coeff of [place] 16.7 H, Plt Count 152, MPV 12.0, Immature Gran % (Auto) 0.400, Neut % (Auto) 65.8, Lymph % (Auto) 20.8, [place] % (Auto) 9.5, Eos % (Auto) 1.5, Baso % (Auto) 2.0 H, Absolute Neuts (auto) 3.0, Absolute Lymphs (auto) 0.94, Nucleated RBC % 0, PT 17.4 H, INR 1.4, APTT 29.0, Sodium 140, Potassium 3.7, Chloride 106, Carbon Dioxide 22.2, Anion Gap 11, BUN 11, Creatinine 1.06, Estim Creat Clear Calc 70.52, Est GFR (MDRD) Non-Af 79, BUN/Creatinine Ratio 10.7, Glucose 241 H, Calcium 8.9, Troponin T High Sens 105 H* D, [place] [address] H 10/12/24 12:08: Troponin T Hi Sens 2 Hr 91 H* 10/12/24 14:18: Troponin T Hi Sens 4Hr 83 H* Imaging Radiology Impression Chest X-Ray 10/12/24 10:15 IMPRESSION: Bilateral pleural effusions right greater than left as described with bibasilar compressive atelectasis. Reading Location: [id number] Abdomen/Pelvis CT 10/12/24 13:10 IMPRESSION: Bilateral pleural effusions right greater than left with dependent bibasilar atelectasis. Diffuse pancreatic calcification in keeping with chronic pancreatitis. Pancreatic atrophy. Fatty infiltration of the liver. Stable aneurysmal dilatation of the ascending thoracic aorta. Small umbilical hernia containing fat. [id number] Assessment & Plan Assessment/Plan (1) Acute exacerbation of chronic heart failure: PLAN: Plan #Acute exacerbation of chronic heart failure with reduced ejection fraction -Admit to telemetry -proBNP 50,353 -Continue IV Lasix - Chest x-ray with bilateral pleural effusions right greater than left with bibasilar compressive atelectasis -Last echo 07/03/2024 with an EF of 35 to 40% - No repeat echo ordered given patient has had 1 within the last 6 months -Daily weights, I's and O's -Fluid restriction, heart healthy diet # Large pleural effusions right greater than left -Patient has required thoracentesis before -Will be diuresed with IV Lasix as above -Will also order therapeutic thoracentesis for the right to assist with symptom management - Given patient has required several thoracentesis could always consider outpatient CT surgery evaluation for more definitive management # Elevated troponin -Initial troponin of 105 with a repeat of 91 - No chest pain but does have evidence of fluid overload and heart failure exacerbation -Suspect that this is secondary to heart failure exacerbation # Chronic hypoxic respiratory failure -Chronically on 2 L nasal cannula -Presently on home O2 but does have increased shortness of breath and leg swelling infusions as above # History of alcohol abuse - Patient denies any recent drinking - Continue home thiamine and folic acid # History of chronic pancreatitis -CT of the abdomen in the ED with diffuse pancreatic calcifications consistent with chronic pancreatitis with pancreatic atrophy - Continue Creon #Type 2 diabetes mellitus -Glucose checks and sliding scale insulin # History of sick sinus syndrome with permanent pacemaker -Noted # History of AAA -CT of the abdomen with stable aneurysmal dilation of ascending thoracic aorta #GERD -Continue PPI #Tobacco use -Advise cessation, patient reports he is down to 1 or 2 cigarettes a day -Nicotine replacement available if desired #DVT ppx: SCDs Diana Willoughby MD 10/12/24 1620 <Electronically signed by Diana Willoughby MD> Cosigner Signature (if applicable): CC: Dr. Diana Willoughby MD; Sigrid Call DO~ Signed [facility] Work Phone: Hospital course Narrative No data available for this section [facility] Hospital Discharge instructions No data available for this section [facility] Dis[facility] instructionsWSt. [facility] Work Phone: Hospital Discharge instructionsWSt. [facility] Work Phone: Hospital Discharge instructionsWSt. [facility] Work Phone: Hospital Discharge instructions Additional Instructions Plenty of fluids and rest. Probably suggest stopping smoking and decreasing your alcohol use. Zofran as needed for nausea. Call and follow-up with your GI doctor soon as possible. If increasing pain, fever, intractable vomiting or feeling worse.[facility] Work Phone: Hospital Discharge instructionsAdditional Instructions You have pleural effusions or fluid buildup in your lungs. You were given a dose of IV Lasix to help rid of the fluid and this will cause you to urinate a lot. Keep taking all your home prescriptions and follow-up with your doctors next week. Or you 2 L of oxygen at all times. If symptoms worsen come back to the ER.[facility] Work Phone: Progress note No data available for this section [facility] Reason for referral (narrative)* Outpatient Procedure (Routine) - New Request Specialty Diagnoses / Procedures Referred By Jonathan t Referred To Contact [facility] Diagnoses Anemia, unspecified type Weight loss Chronic pancreatitis, unspecified pancreatitis type (HCC) Epigastric pain Procedures EGD DIAGNOSTIC EGD DIAGNOSTIC ESOPHAGOGASTRODUODENOSCO PY TRANSORAL DIAGNOSTIC Susana Ramirez APRN.HIGH SCHO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 [address] [place] [address] [facility] [address] [place] [address] Referral ID Status Reason Start Date Expiration Date Visits Requested Visits Authorized [id number] New Request Auto-Generat ed Referral 4 12/23/2024 1 1 * Outpatient Procedure (Routine) - New Request Specialty Diagnoses / Procedures Referred By Jonathan moreira Referred To Contact [facility] Diagnoses Anemia, unspecified type Weight loss Procedures COLONOSCOPY DIAGNOSTIC COLONOSCOPY DIAGNOSTIC COLONOSCOPY FLX DX W/COLLJ SPEC WHEN PFRMD Susana Ramirez APRN.HIGH SCHO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 [address] [place] [address] [facility] [address] [place] [id number] Referral ID Status Reason Start Date Expiration Date Visits Requested Visits Authorized [id number] New Request Auto-Generat ed Referral 12/23/2024 1 1 [facility]No reason for referral information availableWSt. Mary[facility] Work Phone: Reason for visit Narrative* Outpatient Procedure (Routine) - Closed Specialty Diagnoses / Procedures Referred By Jonathan moreira Referred To Contact [facility] Diagnoses Anemia, unspecified type Weight loss Chronic pancreatitis, unspecified pancreatitis type (HCC) Epigastric pain Procedures EGD DIAGNOSTIC EGD DIAGNOSTIC EGD DIAGNOSTIC ESOPHAGOGASTRODUODENOSCO PY TRANSORAL DIAGNOSTIC uSsana Ramirez APRN.HIGH SCHO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 [address] [place] [address] Phone: tel: fax: [facility] [address] [place] [id number] Referral ID Status Reason Start Date Expiration Date V isits Requested Visits Authorized [id number] Closed Auto-Generate d Referral 12/24/2023 12/23/2024 1 1 [facility] Summary Purpose Family History No Family History Records Found Relationship Condition Age at Onset Recorded Date/T kaila father Coronary artery disease Unknown mother Dementia Unknown Advance Directives No Advanced Directives Records Found Advance Directive Response Recorded Date/ Time Advance Directives No January 09, 2017 2:00pm Living Will No May 04, 2021 1:22pm Power of Steel Erector Apprentice No May 04 1:22pm Advance Directive Response Recorded Date/ Time Advance Directives No January 09, 2017 2:00pm Living Will No May 04, 2021 3:44pm Power of Steel Erector Apprentice No May 04 3:44pm Advance Directive Response Recorded Date/ Time Advance Directives No January 09, 2017 2:00pm Living Will No May 29, 2021 7:13pm Power of Steel Erector Apprentice No May 29 7:13pm Advance Directive Response Recorded Date/ Time Advance Directives No January 09, 2017 2:00pm Living Will No May 29, 2021 10:10pm Power of Steel Erector Apprentice No May 29 10:10pm Advance Directive Response Recorded Date/ Time Advance Directives No January 09, 2017 2:00pm Living Will No September 30 2:09pm Power of Steel Erector Apprentice No September 30 022 2:09pm Advance Directive Response Recorded Date/ Time Advance Directives No January 09, 2017 2:00pm Living Will No October 06 12:26pm Power of Steel Erector Apprentice No October 06 022 12:26pm Advance Directive Response Recorded Date/ Time Name of Medical Power of Steel Erector Apprentice TERRA MELENDREZ November 05, 2021 7:17pm Advance Directives No January 09, 2017 2:00pm Living Will Yes November 05, 2021 7:17pm Power of Steel Erector Apprentice Yes October 7:17pm Advance Directive Response Recorded Date/ Time Name of Medical Power of Steel Erector Apprentice TERRA MELENDREZ November 05, 2021 6:17pm Name of Medical Power of Steel Erector Apprentice Terra Aneesh November 11, 2021 3:27pm Name of Medical Power of Steel Erector Apprentice potayla, daughter February 01, 2022 7:05pm Advance Directives No January 09, 2017 1:00pm Living Will Yes February 01, 2 022 7:05pm Power of Steel Erector Apprentice Yes February 01, 2022 7:05pm Advance Directive Response Recorded Date/ Time Name of Medical Power of Steel Erector Apprentice TERRAIVAN MELENDREZ November 05, 2021 6:17pm Name of Medical Power of Steel Erector Apprentice Terra Melendrez November 11, 2021 3:27pm Name of Medical Power of Steel Erector Apprentice dgtr February 01, 2022 9:39pm Advance Directives No January 09, 2017 1:00pm Living Will Yes February 01, 2 022 9:39pm Power of Steel Erector Apprentice Yes February 01, 2022 9:39pm Advance Directive Response Recorded Date/ Time Name of Medical Power of Steel Erector Apprentice dgtr February 01, 2022 9:39pm Advance Directives No January 09, 2017 1:00pm Living Will No March 21 023 6:13pm Power of Steel Erector Apprentice No March 21, 2022 6:13pm Advance Directive Response Recorded Date/ Time Name of Medical Power of Steel Erector Apprentice dgtr February 01, 2022 9:39pm Name of Medical Power of Steel Erector Apprentice pt unsure March 21, 2022 7:51pm Advance Directives No January 09, 2017 1:00pm Living Will Yes March 21, 023 7:51pm Power of Steel Erector Apprentice Yes March 21, 2022 7:51pm Advance Directive Response Recorded Date/ Time Advance Directives No January 09, 2017 2:00pm Living Will No November 01, 2022 8:05pm Power of Steel Erector Apprentice No October 8:05pm Advance Directive Response Recorded Date/ Time Advance Directives No January 09, 2017 2:00pm Living Will No April 20, 2023 11:35am Power of Steel Erector Apprentice No April 19 11:35am Advance Directive Response Recorded Date/ Time Advance Directives No January 09, 2017 2:00pm Living Will No April 20, 2023 5:00pm Power of Steel Erector Apprentice No April 19 5:00pm Advance Directive Response Recorded Date/ Time Advance Directives No January 09, 2017 2:00pm Living Will No May 09, 2023 1:46pm Power of Steel Erector Apprentice No May 08 1:46pm Advance Directive Response Recorded Date/ Time Advance Directives No January 09, 2017 2:00pm Living Will No May 09, 2023 10:12pm Power of Steel Erector Apprentice No May 08 10:12pm Advance Directive Response Recorded Date/ Time Do you have a Healthcare Power of Steel Erector Apprentice? Yes June 25, 2024 4:17pm Advance Directives No January 09, 2017 2:00pm Advance Directive Response Recorded Date/ Time Do you have a Healthcare Power of Steel Erector Apprentice? Yes June 26, 2024 12:18am Advance Directives No January 09, 2017 2:00pm Advance Directive Response Recorded Date/ Time Do you have a Healthcare Power of Steel Erector Apprentice? Yes June 26, 2024 12:18am Do you have a Healthcare Power of Steel Erector Apprentice? Yes June 30, 2024 8:46pm Advance Directives No January 09, 2017 2:00pm Advance Directive Response Recorded Date/ Time Do you have a Healthcare Power of Steel Erector Apprentice? Yes June 26, 2024 12:18am Do you have a Healthcare Power of Steel Erector Apprentice? Yes June 30, 2024 8:46pm Do you have a Healthcare Power of Steel Erector Apprentice? No July 11, 2024 4:12pm Advance Directives No January 09, 2017 2:00pm Advance Directive Response Recorded Date/ Time Do you have a Healthcare Power of Steel Erector Apprentice? Yes June 26, 2024 12:18am Do you have a Healthcare Power of Steel Erector Apprentice? Yes June 30, 2024 8:46pm Do you have a Healthcare Power of Steel Erector Apprentice? No July 11, 2024 11:40am Advance Directives No January 09, 2017 2:00pm Advance Directive Response Recorded Date/ Time Do you have a Healthcare Power of Steel Erector Apprentice? Yes June 26, 2024 12:18am Do you have a Healthcare Power of Steel Erector Apprentice? Yes June 30, 2024 8:46pm Do you have a Healthcare Power of Steel Erector Apprentice? No July 11, 2024 4:12pm Do you have a Healthcare Power of Steel Erector Apprentice? Yes August 01, 2024 2:20pm Advance Directives No January 09, 2017 2:00pm Advance Directive Response Recorded Date/ Time Do you have a Healthcare Power of Steel Erector Apprentice? Yes June 26, 2024 12:18am Do you have a Healthcare Power of Steel Erector Apprentice? Yes June 30, 2024 8:46pm Do you have a Healthcare Power of Steel Erector Apprentice? No July 11, 2024 4:12pm Do you have a Healthcare Power of Steel Erector Apprentice? No August 01, 2024 10:05pm Advance Directives No January 09, 2017 2:00pm Advance Directive Response Recorded Date/ Time Do you have a Healthcare Power of Steel Erector Apprentice? Yes June 26, 2024 12:18am Do you have a Healthcare Power of Steel Erector Apprentice? Yes June 30, 2024 8:46pm Do you have a Healthcare Power of Steel Erector Apprentice? No July 11, 2024 4:12pm Do you have a Healthcare Power of Steel Erector Apprentice? No August 01, 2024 10:05pm Do you have a Healthcare Power of Steel Erector Apprentice? No August 28, 2024 5:50pm Advance Directives No January 09, 2017 2:00pm Advance Directive Response Recorded Date/ Time Do you have a Healthcare Power of Steel Erector Apprentice? Yes June 26, 2024 12:18am Do you have a Healthcare Power of Steel Erector Apprentice? Yes June 30, 2024 8:46pm Do you have a Healthcare Power of Steel Erector Apprentice? No July 11, 2024 4:12pm Do you have a Healthcare Power of Steel Erector Apprentice? No August 01, 2024 10:05pm Do you have a Healthcare Power of Steel Erector Apprentice? No August 29, 2024 1:25am Advance Directives No January 09, 2017 2:00pm Advance Directive Response Recorded Date/ Time Do you have a Healthcare Power of Steel Erector Apprentice? Yes June 26, 2024 12:18am Do you have a Healthcare Power of Steel Erector Apprentice? Yes June 30, 2024 8:46pm Do you have a Healthcare Power of Steel Erector Apprentice? No July 11, 2024 4:12pm Do you have a Healthcare Power of Steel Erector Apprentice? No August 01, 2024 10:05pm Do you have a Healthcare Power of Steel Erector Apprentice? No August 29, 2024 1:25am Do you have a Healthcare Power of Steel Erector Apprentice? Yes October 06, 2024 12:41pm Advance Directives No January 09, 2017 2:00pm Advance Directive Response Recorded Date/ Time Do you have a Healthcare Power of Steel Erector Apprentice? Yes June 26, 2024 12:18am Do you have a Healthcare Power of Steel Erector Apprentice? Yes June 30, 2024 8:46pm Do you have a Healthcare Power of Steel Erector Apprentice? No July 11, 2024 4:12pm Do you have a Healthcare Power of Steel Erector Apprentice? No August 01, 2024 10:05pm Do you have a Healthcare Power of Steel Erector Apprentice? No August 29, 2024 1:25am Do you have a Healthcare Power of Steel Erector Apprentice? Yes October 06, 2024 12:41pm Do you have a Healthcare Power of Steel Erector Apprentice? No October 12, 2024 9:52am Advance Directives No January 09, 2017 2:00pm Date Activated Date Inactivated Comments 10/18/2024 5:42 PM Question Answer Comments Full Code Order Discussed With: Patient Chief Complaint and Reason for Visit Chief [...] y 2024 10:15pm CRITICAL HYPOKALEMIA, LACTIC ACIDOSIS Florentino y 2024 7:34am CRITICAL HYPOKALEMIA, LACTIC ACIDOSIS Florentino y 2024 5:58pm CRITICAL HYPOKALEMIA, LACTIC ACIDOSIS Florentino y 2024 7:37am CRITICAL HYPOKALEMIA, LACTIC ACIDOSIS Florentino y 2024 2:44pm CRITICAL HYPOKALEMIA, LACTIC ACIDOSIS Florentino y 2024 12:00pm CRITICAL HYPOKALEMIA, LACTIC ACIDOSIS [...] HFrEF EXACERBATION August 01, 2 025 8:44pm HYPOXIA, HFrEF EXACERBATION August 02, 2 025 7:44am HYPOXIA, HFrEF EXACERBATION August 02, 2 025 5:12pm HYPOXIA, HFrEF EXACERBATION August [...] Complaint Admit Date CRITICAL HYPOKALEMIA, LACTIC ACIDOSIS Ma y 2024 [...] HFrEF EXACERBATION August 01, 2 025 8:44pm HYPOXIA, HFrEF EXACERBATION August 02, 2 025 7:44am HYPOXIA, HFrEF EXACERBATION August 02, 2 025 5:12pm HYPOXIA, HFrEF EXACERBATION August 03, 2 025 6:39am sob August 29, 2024 12:1 [...] of aortic aneurysm repair July 102024 8:44pm History of diabetes mellitus August 29, 2024 12:38am Medically noncompliant August 29, 2024 1 2:38am Pleural effusion August 29, 2024 12:3 8am Pleural effusion associated with hepatic disorder August 29, 2024 12:38am Chief Complaint Admit Date CRITICAL HYPOKALEMIA, LACTIC ACIDOSIS Ma y 2024 [...] 01, 025 8:44pm HYPOXIA, HFrEF EXACERBATION August 02, 025 7:44am HYPOXIA, HFrEF EXACERBATION August 02, 025 5:12pm HYPOXIA, HFrEF EXACERBATION August 03, 025 6:39am sob August 29, 2024 12:1 9am HYPOXIA, PLEURAL EFFUSION August 29 12:33am HYPOXIA, PLEURAL EFFUSION August 30 11:35am HYPOXIA, PLEURAL EFFUSION August 30 3:15pm HYPOXIA, PLEURAL EFFUSION August 31 6:41am HYPOXIA, PLEURAL EFFUSION August 31 8:19am HYPOXIA, PLEURAL EFFUSION August 31 5:54pm HYPOXIA, PLEURAL EFFUSION September 01 6:38am HYPOXIA, PLEURAL EFFUSION September 01 8:12am HYPOXIA, PLEURAL EFFUSION September 01 9:50am HYPOXIA, PLEURAL EFFUSION September 01 6:05pm HYPOXIA, PLEURAL EFFUSION September 02 8:16am HYPOXIA, PLEURAL EFFUSION September 03 9:45am HYPOXIA, PLEURAL EFFUSION September 04 9:48am HOSP FU TEST RESULTS September 28, 2024 1 :07pm Reason for Visit Admit Date Chronic pancreatitis June 25, 2024 10:1 5pm Adverse drug reaction June 25, 2024 10: 15pm Hypokalemia June 25, 2024 10:15 pm Lactic acidosis June 25, 2024 10:15 pm Ascites due to alcoholic cirrhosis June 082024 10:15pm Chronic alcohol abuse June 25, 2024 10: 15pm Chronic diarrhea June 25, 2024 10:15 pm Macrocytosis associated with alcohol June 25, 2024 10:15pm Thrombocytopenia June 25, 2024 10:15 pm Chronic pancreatitis June 30, 2024 7:47 pm Abdominal ascites June 30, 2024 7:47p [...] due to alcoholic cirrhosis June 092024 7:47pm Malnutrition June 30, 2024 7:47p m Medically [...] of aortic aneurysm repair July 102024 8:44pm History of diabetes mellitus August 29, 2024 12:33am Medically noncompliant August 29, 2024 1 2:33am Pleural effusion associated with hepatic disorder August 29, 2024 12:33am Protein-calorie malnutrition, severe James y 2024 12:33am Chronic pancreatitis August 29, 2024 12: 33am Abdominal ascites August 29, 2024 12:3 3am Pleural effusion August 29, 2024 12:3 3am Chronic pancreatitis due to chronic alco holism August 29, 2024 12:33am Malnutrition August 29, 2024 12:3 3am Pancytopenia August 29, 2024 12:3 3am Pleural effusion associated with hepatic disorder September 28, 2024 1:07pm Protein-calorie malnutrition, severe Aug ust 2024 1:07pm Chronic pancreatitis September 28, 2024 1 :07pm Chief Complaint Admit Date CRITICAL HYPOKALEMIA, LACTIC ACIDOSIS Ma y 2024 [...] 9:33 am HYPOXIA, HFrEF EXACERBATION August 01 8:44pm HYPOXIA, HFrEF EXACERBATION August 02 7:44am HYPOXIA, HFrEF EXACERBATION August 02 5:12pm HYPOXIA, HFrEF EXACERBATION August 03 025 6:39am sob August 29, 2024 12:1 9am HYPOXIA, PLEURAL EFFUSION August 29 12:33am HYPOXIA, PLEURAL EFFUSION August 30 11:35am HYPOXIA, PLEURAL EFFUSION August 30 3:15pm HYPOXIA, PLEURAL EFFUSION August 31 6:41am HYPOXIA, PLEURAL EFFUSION August 31 8:19am HYPOXIA, PLEURAL EFFUSION August 31 5:54pm HYPOXIA, PLEURAL EFFUSION September 01 6:38am HYPOXIA, PLEURAL EFFUSION September 01 8:12am HYPOXIA, PLEURAL EFFUSION September 01 9:50am HYPOXIA, PLEURAL EFFUSION September 01 6:05pm HYPOXIA, PLEURAL EFFUSION September 02 8:16am HYPOXIA, PLEURAL EFFUSION September 03 9:45am HYPOXIA, PLEURAL EFFUSION September 04 9:48am HOSP FU TEST RESULTS September 28, 2024 1 :07pm weakness October 06, 2024 11 :36am Chief Complaint Admit Date CRITICAL HYPOKALEMIA, LACTIC ACIDOSIS Florentino y 2024 [...] 01, 025 8:44pm HYPOXIA, HFrEF EXACERBATION August 02, 025 7:44am HYPOXIA, HFrEF EXACERBATION August 02, 025 5:12pm HYPOXIA, HFrEF EXACERBATION August 03, 025 6:39am sob August 29, 2024 12:1 9am HYPOXIA, PLEURAL EFFUSION August 29 12:33am HYPOXIA, PLEURAL EFFUSION August 30 11:35am HYPOXIA, PLEURAL EFFUSION August 30 3:15pm HYPOXIA, PLEURAL EFFUSION August 31 6:41am HYPOXIA, PLEURAL EFFUSION August 31 8:19am HYPOXIA, PLEURAL EFFUSION August 31 5:54pm HYPOXIA, PLEURAL EFFUSION September 01 6:38am HYPOXIA, PLEURAL EFFUSION September 01 8:12am HYPOXIA, PLEURAL EFFUSION September 01 9:50am HYPOXIA, PLEURAL EFFUSION September 01 6:05pm HYPOXIA, PLEURAL EFFUSION September 02 8:16am HYPOXIA, PLEURAL EFFUSION September 03 9:45am HYPOXIA, PLEURAL EFFUSION September 04 9:48am HOSP FU TEST RESULTS September 28, 2024 1 :07pm weakness October 06, 2024 11 :36am S/P [facility] 07/02October 10, 2024 2:05pm HEART FAILURE EXACERBATION October 4:09pm Reason for Visit Admit Date Chronic pancreatitis June 25, 2024 10:1 5pm Adverse drug reaction June 25, 2024 10: 15pm Hypokalemia June 25, 2024 10:15 pm Lactic acidosis June 25, 2024 10:15 pm Ascites due to alcoholic cirrhosis June 082024 10:15pm Chronic alcohol abuse June 25, 2024 10: 15pm Chronic diarrhea June 25, 2024 10:15 pm Macrocytosis associated with alcohol June 25, 2024 10:15pm Thrombocytopenia June 25, 2024 10:15 pm Chronic pancreatitis June 30, 2024 7:47 pm Abdominal ascites June 30, 2024 7:47p [...] due to alcoholic cirrhosis June 092024 7:47pm Malnutrition June 30, 2024 7:47p m Medically [...] Suicidal ideation July 11, 2024 2:06p m History of aortic aneurysm repair July 102024 8:44pm Acute HFrEF (heart failure with reduced ejection fraction) August 01, 2024 8:44pm Elevated troponin August 01, 2024 8:44 pm Hypoxia August 01, 2024 8:44 pm H/O aortic valve replacement August 01, 2024 8:44pm History of diabetes mellitus August 29, 2024 12:33am Medically noncompliant August 29, 2024 1 2:33am Pleural effusion associated with hepatic disorder August 29, 2024 12:33am Protein-calorie malnutrition, severe James 2024 12:33am Chronic pancreatitis August 29, 2024 12: 33am Abdominal ascites August 29, 2024 12:3 3am Pleural effusion August 29, 2024 12:3 3am Chronic pancreatitis due to chronic alco holism August 29, 2024 12:33am Malnutrition August 29, 2024 12:3 3am Pancytopenia August 29, 2024 12:3 3am Pleural effusion associated with hepatic disorder September 28, 2024 1:07pm Protein-calorie malnutrition, severe Aug us2024 1:07pm Chronic pancreatitis September 28, 2024 1 :07pm History of aortic valve repl acement with bioprosthetic valve October 10, 2024 2:05pm SVT (supraventricular tachycardia) Septe 2024 2:05pm Cardiac pacemaker in situ October 10, 2024 2:05pm Essential hypertension October 10 2:05pm History of aortic aneurysm repair Sept2024 2:05pm Pure hypercholesterolemia October 10, 2024 2:05pm Acute exacerbation of chronic heart fail ure October 12, 2024 4:09pm Reason for Referral Specialty Diagnoses / Procedures Referred By Jonathan t Referred To Contact CT IMAGING Diagnoses Diarrhea, unspecified type Acute pancreatitis, unspecified complication status, unspecified pancreatitis type Procedures CT PANCREAS W IVCON CT ABDOMEN W/CONTRAST Marianna Wagner, 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 [address] [place] [address] [place] [address] Referral ID Status Reason Start Date Expiration Date Visits Requested Visits Authorized [id number] New Request Auto-Generat ed Referral 11/08/2023 12/06/2024 1 1 Specialty Diagnoses / Procedures Referred By Contbelle t Referred To Contact Hematology / [facility] Diagnoses 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) Medically complex patient Anemia, unspecified type Procedures CONSULT TO HEMATOLOGY OFFICE/OUTPATIENT [facility] 60 MINUTES Marianna Wagner, 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 [address] [place] [address] Jacky Sebastian DO [address] [place] [address] Referral ID Status Reason Start Date Expiration Date Visits Requested Visits Authorized [id number] Authorized PCP Requested Referral 10/17/2023 10/16/2024 1 1 Specialty Diagnoses / Procedures Referred By Contac t Referred To Contact CT IMAGING Diagnoses Generalized abdominal pain Diarrhea of presumed infectious origin Weight loss Alcohol-induced chronic pancreatitis (HCC) Procedures CT ABD/PEL WO IVCON CT ABD/PEL WO IVCON CT ABD & PELVIS W/O CONTRAST Marianna Wagner, 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 [address] [place] [address] [place] [address] Referral ID Status Reason Start Date Expiration Date Visits Requested Visits Authorized [id number] New Request Auto-Generat ed Referral 10/14/2023 11/12/2024 1 1 Specialty Diagnoses / Procedures Referred By Contac t Referred To Contact Gastroenterology Diagnoses Diarrhea of presumed infectious origin Generalized abdominal pain Procedures CONSULT TO GASTROENTEROLOGY OFFICE/OUTPATIENT [facility] 60 MINUTES Marianna Wagner, 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 [address] [place] [address] Referral ID Status Reason Start Date Expiration Date Visits Requested Visits Authorized [id number] Authorized PCP Requested Referral 09/24/2023 09/23/2024 1 1 Specialty Diagnoses / Procedures Referred By Contac t Referred To Contact [facility] Diagnoses Chronic diarrhea Weight loss Procedures CONSULT TO GASTROENTEROLOGY OFFICE/OUTPATIENT [facility] 60 MINUTES Marianna Wagner, 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 [address] [place] [address] [facility] [address] [place] [address] Referral ID Status Reason Start Date Expiration Date Visits Requested Visits Authorized [id number] Authorized PCP Requested Referral 08/09/2023 08/08/2024 1 1 Specialty Diagnoses / Procedures Referred By Jonathan moreira Referred To Contact [facility] Diagnoses Type 2 diabetes mellitus with complication, with long-term current use of insulin (HCC) Weight loss Procedures CONSULT TO ENDOCRINOLOGY OFFICE/OUTPATIENT [facility] 60 MINUTES Marianna Wagner APRN.HIGH SCHO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 [address] [place] [address] Kell Richmond MD [address] [place] [address] Referral ID Status Reason Start Date Expiration Date Visits Requested Visits Authorized [id number] Authorized PCP Requested Referral 08/09/2023 08/08/2024 1 1 Additional Source Comments (unrecognized sect ion and content) No Status Records FoundNo Status Records FoundNo Status Records FoundNo Status Records FoundNo Status Records FoundNo Status Records FoundNo Status Records FoundNo Status Records FoundNo Status Records FoundNo Status Records Found INFORMATION SOURCE (unrecogn ized section and content) DATE CREATED AUTHOR 12/12/[address] [facility] DATE CREATED AUTHOR AUTHOR'S ORGANIZ ATION 04/08/2018 [facility] DATE CREATED AUTHOR AUTHOR'S ORGANIZ ATION 04/09/2023 [facility] DATE CREATED AUTHOR AUTHOR'S ORGANIZ ATION 03/24/2024 [facility] DATE CREATED AUTHOR AUTHOR'S ORGANIZ ATION 04/07/2024 [facility] DATE CREATED AUTHOR AUTHOR'S ORGANIZ ATION 07/18/2024 [facility] DATE CREATED AUTHOR AUTHOR'S ORGANIZ ATION 09/18/2024 [facility] DATE CREATED AUTHOR AUTHOR'S ORGANIZ ATION 12/09/2024 [facility] DATE CREATED AUTHOR AUTHOR'S ORGANIZ ATION 12/10/2024 [facility] DATE CREATED AUTHOR AUTHOR'S ORGANIZ ATION 12/21/2024 [facility] Goals (unrecognized section and content) Goals may be documented in a n alternate section Care Team (unrecognized sect ion and content) Care Team Personnel Name: ZOANDREAS TOWNSEND Viola [employer]ATION HAND - H[employer]CHO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: 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 Provider Member Role: Primary Care Physician Address: Address: [address], [place] [id number] Care Team Related Persons Name: NARENDRA MELENDREZ Name: DARRINTERRA VERNON Care Teams (unrecognized sec tion and content) Team Status: Active Member Role Status Dates Marianna Wagner TRACTOR CRANE OPERATOR, TRACTOR CRANE OPERATOR-C Primary Care Provider Active Team Status: Inactive [...] 2024 End: June 28, 2024 Marianna Wagner TRACTOR CRANE OPERATOR, TRACTOR CRANE OPERATOR-C Primary Care Provider Active Start: June 25, [...] e Start: June 26, 2024 Marianna Wagner TRACTOR CRANE OPERATOR, TRACTOR CRANE OPERATOR-C Primary Care Provider Active Start: June 26, [...] e Start: June 26, 2024 Marianna Wagner TRACTOR CRANE OPERATOR, TRACTOR CRANE OPERATOR-C Primary Care Provider Active Start: June 26, [...] e Start: June 27, 2024 Mariannamandy Wagner TRACTOR CRANE OPERATOR, TRACTOR CRANE OPERATOR-C Primary Care Provider Active Start: June 27, [...] e Start: June 27, 2024 Marianna Quedevyn TRACTOR CRANE OPERATOR, TRACTOR CRANE OPERATOR-C Primary Care Provider Active Start: June 27, [...] e Start: June 28, 2024 Marianna Queden TRACTOR CRANE OPERATOR, TRACTOR CRANE OPERATOR-C Primary Care Provider Active Start: June 28, [...] e Start: June 28, 2024 Marianna Wagner TRACTOR CRANE OPERATOR, TRACTOR CRANE OPERATOR-C Primary Care Provider Active Start: June 28, [...] Active Member Role Status Dates Marianna Wagner TRACTOR CRANE OPERATOR, TRACTOR CRANE OPERATOR-C Primary Care Provider Active Start: June 30, [...] Inactive Member Role Status Dates Marianna Wagner TRACTOR CRANE OPERATOR, TRACTOR CRANE OPERATOR-C Primary Care Provider Active Start: June 30, [...] Active Member Role Status Dates Marianna Wagner TRACTOR CRANE OPERATOR, TRACTOR CRANE OPERATOR-C Primary Care Provider Active Start: July 01, [...] Active Member Role Status Dates Marianna Wagner TRACTOR CRANE OPERATOR, TRACTOR CRANE OPERATOR-C Primary Care Provider Active Start: July 02, [...] Active Member Role Status Dates Marianna Wagner TRACTOR CRANE OPERATOR, TRACTOR CRANE OPERATOR-C Primary Care Provider Active Start: July 03, [...] Active Member Role Status Dates Marianna Wagner TRACTOR CRANE OPERATOR, TRACTOR CRANE OPERATOR-C Primary Care Provider Active Start: July 03, 2024 Dr. Yaneli Carbone MD Attending Provider Active Start: July 03, 2024 Team Status: Active Member Role Status Dates Marianna Fátima TRACTOR CRANE OPERATOR, TRACTOR CRANE OPERATOR-C Primary Care Provider Active Start: July 03, [...] Active Member Role Status Dates Marianna Fátima TRACTOR CRANE OPERATOR, TRACTOR CRANE OPERATOR-C Primary Care Provider Active Start: July 04, [...] Active Member Role Status Dates Marianna Fátima TRACTOR CRANE OPERATOR, TRACTOR CRANE OPERATOR-C Primary Care Provider Active Start: July 04, [...] Active Member Role Status Dates Marianna Wagner TRACTOR CRANE OPERATOR, TRACTOR CRANE OPERATOR-C Primary Care Provider Active Start: July 04, [...] Active Member Role Status Dates Marianna Wagner TRACTOR CRANE OPERATOR, TRACTOR CRANE OPERATOR-C Primary Care Provider Active Start: July 05, [...] Active Member Role Status Dates Marianna Wagner TRACTOR CRANE OPERATOR, TRACTOR CRANE OPERATOR-C Primary Care Provider Active Start: July 06, 2024 Dr. Narendra Gonzalez , DO Emergency Provider Active Start: July 06, 2024 Dr. Conrado Pro , DO Admit Provider Active Start: July 06, 2024 Dr. Conrado Pro , DO Other Provider Active Start: July 06, 2024 Dr. Chris Aragon , Attending Provider Active Start: July 06, 2024 Dr. Chris Aragon , DO Other Provider Active Start: July 06, 2024 Dr. Melonie De La Rosa , Other Provider Active Start : July 06, 2024 Dr. Yaneli Carbone MD Other Provider Active Star t: July 06, 2024 Team Status: Active Member Role Status Dates Marianna Wagner TRACTOR CRANE OPERATOR, TRACTOR CRANE OPERATOR-C Primary Care Provider Active Start: July 11, 2024 Dr. Perez Ribeiro , Emergency Provider Active Start: July 11, 2024 Dr. Melonie De La Rosa , DO Attending Provider Active S tart: July 11, 2024 Team Status: Active Member Role Status Dates Marianna Wagner TRACTOR CRANE OPERATOR, TRACTOR CRANE OPERATOR-C Primary Care Provider Active Start: July 11, 2024 Dr. Perez Ribeiro DO Emergency Provider Active Start: July 11, 2024 Dr. Melonie De La Rosa , DO Admit Provider Active Start : July 11, 2024 Dr. Melonie De La Rosa , Attending Provider Active S tart: July 11, 2024 Team Status: Active Member Role Status Dates Sigrid KELLY DO Primary Care Provider Active Team Status: Inactive Member Role Status Dates Dr. Perez Ribeiro , Emergency Provider Active Start: July 11, 2024 End: July 14, 2024 Dr. Melonie De La Rosa , Admit Provider Active Start : July 11, 2024 End: July 14, 2024 Dr. Melonie De La Rosa , Other Provider Active Start : July 11, 2024 End: July 14, 2024 Dr. Piper Fontanez MD Other Provider Active Sta rt: July 11, 2024 End: July 14, 2024 Dr. Conrado Morel MD Attending Provider Active Start: July 11, 2024 End: July 14, 2024 Sigrid KELLY, DO Primary Care Provider Active Start: July 11, 2024 End: July 14, 2024 Team Status: Active Member Role Status Dates Marianna Wagner TRACTOR CRANE OPERATOR, TRACTOR CRANE OPERATOR-C Primary Care Provider Active Start: July 12, 2024 Dr. Perez Ribeiro DO Emergency Provider Active Start: July 12, 2024 Dr. Melonie De La Rosa , Admit Provider Active Start : July 12, 2024 Dr. Melonie De La Rosa DO Other Provider Active Start : July 12, 2024 Dr. Piper Fontanez MD Other Provider Active Sta rt: July 12, 2024 Dr. Conrado Morel MD Attending Provider Active Start: July 12, 2024 Dr. Conrado Morel MD Other Provider Active Star t: July 12, 2024 Team Status: Active Member Role Status Dates Marianna Wagner TRACTOR CRANE OPERATOR, TRACTOR CRANE OPERATOR-C Primary Care Provider Active Start: July 12, 2024 Dr. Perez Ribeiro DO Emergency Provider Active Start: July 12, 2024 Dr. Melonie De La Rosa DO Admit Provider Active Start : July 12, 2024 Dr. Melonie De La Rosa DO Other Provider Active Start : July 12, 2024 Dr. Piper Fontanez MD Other Provider Active Sta rt: July 12, 2024 Dr. Conrado Morel MD Other Provider Active Star t: July 12, 2024 Dian BALDERAS PA-C Attending Provider Active Start: July 12, 2024 Team Status: Active Member Role Status Dates Marianna Wagner TRACTOR CRANE OPERATOR, TRACTOR CRANE OPERATOR-C Primary Care Provider Active Start: July 13, 2024 Dr. Perez Ribeiro DO Emergency Provider Active Start: July 13, 2024 Dr. Melonie De La Rosa DO Admit Provider Active Start : July 13, 2024 Dr. Melonie De La Rosa DO Other Provider Active Start : July 13, 2024 Dr. Piper Fontanez MD Other Provider Active Sta rt: July 13, 2024 Dr. Conrado Morel MD Other Provider Active Star t: July 13, 2024 Dian BALDERAS PA-C Attending Provider Active Start: July 13, 2024 Team Status: Active Member Role Status Dates Marianna Wagner TRACTOR CRANE OPERATOR, TRACTOR CRANE OPERATOR-C Primary Care Provider Active Start: July 13, 2024 Dr. Perez Ribeiro DO Emergency Provider Active Start: July 13, 2024 Dr. Melonie De La Rosa DO Admit Provider Active Start : July 13, 2024 Dr. Melonie De La Rosa DO Other Provider Active Start : July 13, 2024 Dr. Piper Fontanez MD Other Provider Active Sta rt: [...] Active Start : July 14, 2024 Dr. Piper Fontanez MD Other Provider Active Sta rt: July 14, 2024 Dr. Conrado Morel MD Attending Provider Active Start: July 14, 2024 Dr. Conrado Morel MD Other Provider Active Star t: July 14, 2024 Sigrid Call [facility], DO Primary Care Provider Active Start: July 14, 2024 Team Status: Active Member Role Status Dates Andreas Pathak TRACTOR CRANE OPERATOR, TRACTOR CRANE OPERATOR-C Family Provider Activ e Andreas Pathak TRACTOR CRANE OPERATOR, TRACTOR CRANE OPERATOR-C Primary Care Provider Active Team Status: Active Member Role Status Dates Andreas Pathak TRACTOR CRANE OPERATOR, TRACTOR CRANE OPERATOR-C Primary Care Provider Active Dr. Vinh Lomeli MD Emergency Provider Active Dr. Iman Aguayo MD Admit Provider, Other Provider Active Dr. Conrado Morel MD Attending Provider, Other Provid er Active Team Status: Active Member Role Status Dates Andreas Pathak TRACTOR CRANE OPERATOR, TRACTOR CRANE OPERATOR-C Primary Care Provider Active Dr. Vinh Lomeli MD Emergency Provider Active Dr. Iman Aguayo MD Admit Provider, Other Provider Active Dr. Mateusz Dutton DO Attending Provider, Other Pro vider Active Dr. Conrado Morel MD Other Provider Active Team Status: Active Member Role Status Dates Andreas Pathak TRACTOR CRANE OPERATOR, TRACTOR CRANE OPERATOR-C Primary Care Provider Active Dr. Vinh Lomeli MD Emergency Provider Active Dr. Ashley Alvarado MD Admit Provider, Other Provider Active Dr. Iman Aguayo MD Attending Provider Active Team Status: Inactive Member Role Status Dates Andreas Pathak TRACTOR CRANE OPERATOR, TRACTOR CRANE OPERATOR-C Primary Care Provider Active Dr. Vinh Lomeli MD Emergency Provider Active Dr. Iman Aguayo MD Admit Provider, Other Provider Active Dr. Mateusz Dutton DO Attending Provider Active Dr. Conrado Morel MD Other Provider Active Team Status: Active Member Role Status Dates Andreas Pathak TRACTOR CRANE OPERATOR, TRACTOR CRANE OPERATOR-C Primary Care Provider Active Dr. Vinh Loemli MD Emergency Provider Active Dr. Iman Aguayo MD Admit Provider, Attending Prov ider Active Team Status: Active Member Role Status Dates Andreas Pathak TRACTOR CRANE OPERATOR, TRACTOR CRANE OPERATOR-C Primary Care Provider Active Dr. Vinh Lomeli MD Emergency Provider Active Dr. Iman Aguayo MD Admit Provider, Other Provider Active Dr. Mateusz Dutton , DO Attending Provider, Other Pro vider Active Team Status: Inactive Member Role Status Dates Andreas Pathak TRACTOR CRANE OPERATOR, TRACTOR CRANE OPERATOR-C Primary Care Provider Active Dr. Vinh Lomeli MD Emergency Provider Active Dr. Iman Aguayo MD Admit Provider, Other Provider Active Dr. Mateusz Dutton , DO Attending Provider Active Team Status: Inactive Member Role Status Dates Andreas Pathak TRACTOR CRANE OPERATOR, TRACTOR CRANE OPERATOR-C Primary Care Provider Active Dr. Sinan Abarca , Attending Provider, Emergency Provider Active Team Status: Inactive Member Role Status Dates Andreas Pathak TRACTOR CRANE OPERATOR, TRACTOR CRANE OPERATOR-C Primary Care Provider Active Dr. Vinh Lomeli MD Emergency Provider Active Team Status: Inactive Member Role Status Dates Andreas Pathak TRACTOR CRANE OPERATOR, TRACTOR CRANE OPERATOR-C Primary Care Provider Active Dr. Trung Bob MD Attending Provider Active Team Status: Active Member Role Status Dates Andreas Pathak TRACTOR CRANE OPERATOR, TRACTOR CRANE OPERATOR-C Primary Care Provider Active Dr. Chris Call DO Emergency Provider Active Dr. Lucas Frausto MD Admit Provider, Attending Provider Active Team Status: Active Member Role Status Dates Andreas Pathak TRACTOR CRANE OPERATOR, TRACTOR CRANE OPERATOR-C Primary Care Provider Active Dr. Chris Call DO Emergency Provider Active Dr. Lucas Frausto MD Admit Provi mary lou, Attending Provider, Other Provider Active Team Status: Active Member Role Status Dates Andreas Pathak TRACTOR CRANE OPERATOR, TRACTOR CRANE OPERATOR-C Primary Care Provider Active Dr. Chris Call DO Emergency Provider Active Dr. Lucas Frausto MD Admit Provider, Other Pro vider Active Dr. Ashley Alvarado MD Attending Provider, Other Prov ider Active Team Status: Inactive Member Role Status Dates Andreas Pathak TRACTOR CRANE OPERATOR, TRACTOR CRANE OPERATOR-C Primary Care Provider Active Dr. Chris Call , DO Emergency Provider Active Dr. Lucas Frausto MD Admit Provider, Other Pro vider Active Dr. Ashley Alvarado MD Attending Provider Active Team Status: Active Member Role Status Dates Andreas Pathak TRACTOR CRANE OPERATOR, TRACTOR CRANE OPERATOR-C Primary Care Provider Active Dr. Carlos Augustin MD Emergency Provider Active Dr. Conrado Pro DO Admit Provider, Attending Pr ovider Active Team Status: Active Member Role Status Dates Andreas Pathak TRACTOR CRANE OPERATOR, TRACTOR CRANE OPERATOR-C Primary Care Provider Active Dr. Carlos Augustin [...] Active Member Role Status Dates Andreas Pathak TRACTOR CRANE OPERATOR, TRACTOR CRANE OPERATOR-C Primary Care Provider Active Dr. Carlos Augustin [...] Active Team Status: Active Member Role Status Cam Pathak NP, TRACTOR CRANE OPERATOR-C Primary Care Provider Active Dr. Carlos Augustin [...] Active Member Role Status Dates Andreas Pathak TRACTOR CRANE OPERATOR, TRACTOR CRANE OPERATOR-C Primary Care Provider Active Dr. Carlos Augustin MD Emergency Provider Active Dr. Conrado Pro DO Admit Provider, Other Provid er Active Dr. Conrado Morel MD Referring Provider, Other Provid er Active Dr. Barry Sheehan DO Attending Provider Active Team Status: Active Member Role Status Dates Andreas Pathak TRACTOR CRANE OPERATOR, TRACTOR CRANE OPERATOR-C Primary Care Provider Active Dr. Carlos Augustin MD Emergency Provider Active Dr. Conrado Pro DO Admit Provider, Other Provid er Active Dr. Conrado Morel MD Attending Provider, Other Provid er Active Dr. Maya Melo MD Other Provider Active Team Status: Active Member Role Status Dates Andreas Pathka TRACTOR CRANE OPERATOR, TRACTOR CRANE OPERATOR-C Primary Care Provider Active Dr. Carlos Augustin MD Emergency Provider Active Dr. Conrado Pro DO Admit Provider, Other Provid er Active Dr. Maya Melo MD Other Provider Active Dr. Refugio Rojas MD Attending Provider, Other Provi mary lou Active Dr. Conrado Morel MD Other Provider Active Team Status: Inactive Member Role Status Dates Andreas Pathak TRACTOR CRANE OPERATOR, TRACTOR CRANE OPERATOR-C Primary Care Provider Active Dr. Carlos Augustin MD Emergency Provider Active Dr. Conrado Pro DO Admit Provider, Other Provid er Active Dr. Maya Melo MD Other Provider Active Dr. Refugio Rojas MD Attending Provider Active Dr. Conrado Morel MD Other Provider Active Remote Pilot Operator Relationship Specialty Start Date End Date Marianna Wagner, 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 [address] [facility], [place] [id number] PCP - General Family Medicine 08/09/23 Trung Bob MD [address] [place], [place] [id number] Physician Cardiology 06/10/18 Remote Pilot Operator Relationship Specialty Start Date End Date Marianna Wagner, 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 [address] [facility], [place] [id number] PCP - General Family Medicine 08/09/23 Trung Bob MD [address] [place], [place] [address] Physician Cardiology 06/10/18 Remote Pilot Operator Relationship Specialty Start Date End Date Marianna Wagner, 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 [address] [facility], [place] [id number] PCP - General Family Medicine 08/09/23 Trung Bob MD [address] [place], [place] [id number] Physician Cardiology 06/10/18 Remote Pilot Operator Relationship Specialty Start Date End Date Marianna Wagner, 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 [address] [facility], [place] [id number] PCP - General Family Medicine 08/09/23 Trung Bob MD [address] [place], [place] [address]- Physician Cardiology 06/10/18 Remote Pilot Operator Relationship Specialty Start Date End Date Marianna Wagner, 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 [address] [place], [place] [id number] PCP - General Family Medicine 08/09/23 Trung Bob MD [address] [place], [place] [address] Physician Cardiology 06/10/18 Remote Pilot Operator Relationship Specialty Start Date End Date Marianna Wagner, 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 [address] [place], [place] [id number] PCP - General Family Medicine 08/09/23 Trung Bob MD [address] [place] [address] Physician Cardiology 06/10/18 Remote Pilot Operator Relationship Specialty Start Date End Date Marianna Wagner, 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 [address] [place] [address] PCP - General Family Medicine 08/09/23 Trung Bob MD [address] [place], [place] [address] Physician Cardiology 06/10/18 Remote Pilot Operator Relationship Specialty Start Date End Date Marianna Wagner, 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 [address] [place], [place] [id number] PCP - General Family Medicine 08/09/23 Trung Bob MD [address] [address]- Physician Cardiology 06/10/18 Remote Pilot Operator Relationship Specialty Start Date End Date Marianna Wagner, 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 [address] [facility] [place] [id number] PCP - General Family Medicine 08/09/23 Trung Bob MD [address] [address] Physician Cardiology 06/10/18 Remote Pilot Operator Relationship Specialty Start Date End Date Marianna Wagner, 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 [address] [place] [address] PCP - General Family Medicine 08/09/23 Trung Bob MD [address] [address] Physician Cardiology 06/10/18 Remote Pilot Operator Relationship Specialty Start Date End Date Marianna Wagner, 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 [address] [place] [address] PCP - General Family Medicine 08/09/23 Trung Bob MD [address] [address] Physician Cardiology 06/10/18 Remote Pilot Operator Relationship Specialty Start Date End Date Marianna Wagner 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 [address] [facility], [place] [phone] PCP - General Family Medicine 08/09/23 Trung Bob MD [address] [place], [place] [address] Physician Cardiology 06/10/18 Remote Pilot Operator Relationship Specialty Start Date End Date Marianna Wagner 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 [address] [facility], [place] [id number] PCP - General Family Medicine 08/09/23 Trung Bob MD [address] [place], [place] [address] Physician Cardiology 06/10/18 Remote Pilot Operator Relationship Specialty Start Date End Date Marianna Wagner, 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 [address] [place] [address] PCP - General Family Medicine 08/09/23 Trung Bob MD [address] [place] [address], [place] [address] Physician Cardiology 06/10/18 Remote Pilot Operator Relationship Specialty Start Date End Date Marianna Wagner 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 [address] [facility] [place] [address] PCP - General Family Medicine 08/09/23 Trung Bob MD [address] [place] [address] Physician Cardiology 06/10/18 Remote Pilot Operator Relationship Specialty Start Date End Date Marianna Wagner 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 [address] [facility] [address] [place], [place] [id number] PCP - General Family Medicine 08/09/23 Trung Bob MD [address] [place] [address] Physician Cardiology 06/10/18 Remote Pilot Operator Relationship Specialty Start Date End Date Marianna Wagner 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 [address] [place] [address] PCP - General Family Medicine 08/09/23 Trung Bob MD [address] [address] Physician Cardiology 06/10/18 Remote Pilot Operator Relationship Specialty Start Date End Date Marianna Wagner, 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 [address] [place] [address] PCP - General Family Medicine 08/09/23 Trung Bob MD [address] [address] Physician Cardiology 06/10/18 Remote Pilot Operator Relationship Specialty Start Date End Date Marianna Wagner, 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 [address] [place] [address] PCP - General Family Medicine 08/09/23 Trung Bob MD [address] [address] Physician Cardiology 06/10/18 Remote Pilot Operator Relationship Specialty Start Date End Date Marianna Wagner 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 [address] [place], [place] [phone] PCP - General Family Medicine 08/09/23 Trung Bob MD [address] [place] [address] Physician Cardiology 06/10/18 Remote Pilot Operator Relationship Specialty Start Date End Date Marianna Wagner 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 [address] [place] [address] PCP - General Family Medicine 08/09/23 Trung Bob MD [address] [place], [place] [address] Physician Cardiology 06/10/18 Remote Pilot Operator Relationship Specialty Start Date End Date Marianna Wagner, 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 [address] [place], [place] [phone] PCP - General Family Medicine 08/09/23 Trung Bob MD [address] [address] Physician Cardiology 06/10/18 Remote Pilot Operator Relationship Specialty Start Date End Date Marianna Wagner, 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 [address] [place] [address] PCP - General Family Medicine 08/09/23 Trung Bob MD [address] [address] Physician Cardiology 06/10/18 Remote Pilot Operator Relationship Specialty Start Date End Date Marianna Wagner 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 [address] [place], [place] [id number] PCP - General Family Medicine 08/09/23 Trung Bob MD [address] [place], [place] [address] Physician Cardiology 06/10/18 Remote Pilot Operator Relationship Specialty Start Date End Date Marianna Wagner, 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 [address] [place] [address] PCP - General Family Medicine 08/09/23 Trung Bob MD [address] [place], [place] [phone] Physician Cardiology 06/10/18 Remote Pilot Operator Relationship Specialty Start Date End Date Marianna Wagner, 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 [address] [facility], [place] [phone] PCP - General Family Medicine 08/09/23 Trung Bob MD [address] [place], [place] [phone] Physician Cardiology 06/10/18 Remote Pilot Operator Relationship Specialty Start Date End Date Marianna Wagner, 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 [address] [facility] [place] [phone] PCP - General Family Medicine 08/09/23 Trung Bob MD [address] [place], [place] [address] Physician Cardiology 06/10/18 Remote Pilot Operator Relationship Specialty Start Date End Date Marianna Wagner, 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 [address] [place] [address] PCP - General Family Medicine 08/09/23 Trung Bob MD [address] [place], [place] [address] Physician Cardiology 06/10/18 Remote Pilot Operator Relationship Specialty Start Date End Date Marianna Wagner, 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 [address] [place] [address] PCP - General Family Medicine 08/09/23 Trung Bob MD [address] [place], [place] [address] Physician Cardiology 06/10/18 Remote Pilot Operator Relationship Specialty Start Date End Date Marianna Wagner, 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 [address] [place], [place] [id number] PCP - General Family Medicine 08/09/23 Trung Bob MD [address] [place], [place] [phone] Physician Cardiology 06/10/18 Team Status: Active Member Role Status Dates Dr. Rolan Romero , DO Referring Provider Activ e Start: June 25, 2024 Dr. Rolan Romero , DO Emergency Provider Activ e Start: June 25, 2024 Marianna Wagner TRACTOR CRANE OPERATOR, TRACTOR CRANE OPERATOR-C Primary Care Provider Active Start: June 25, [...] e Start: June 26, 2024 Marianna Wagner TRACTOR CRANE OPERATOR, TRACTOR CRANE OPERATOR-C Primary Care Provider Active Start: June 26, [...] e Start: June 27, 2024 Marianna Wagner TRACTOR CRANE OPERATOR, TRACTOR CRANE OPERATOR-C Primary Care Provider Active Start: June 27, [...] e Start: June 28, 2024 Marianna Wagner TRACTOR CRANE OPERATOR, TRACTOR CRANE OPERATOR-C Primary Care Provider Active Start: June 28, [...] Active Member Role Status Dates Marianna Wagner TRACTOR CRANE OPERATOR, TRACTOR CRANE OPERATOR-C Primary Care Provider Active Start: July 02, [...] Active Member Role Status Dates Marianna Wagner TRACTOR CRANE OPERATOR, TRACTOR CRANE OPERATOR-C Primary Care Provider Active Start: July 03, [...] Team Status: Active Member Role Status Dates Marainna Wagner TRACTOR CRANE OPERATOR, TRACTOR CRANE OPERATOR-C Primary Care Provider Active Start: July 04, [...] Active Member Role Status Dates Marianna Wagner TRACTOR CRANE OPERATOR, TRACTOR CRANE OPERATOR-C Primary Care Provider Active Start: July 05, [...] Active Member Role Status Dates Marianna Wagner TRACTOR CRANE OPERATOR, TRACTOR CRANE OPERATOR-C Primary Care Provider Active Start: July 06, [...] Provider Active Star t: July 06, 2024 Remote Pilot Operator Relationship Specialty Start Date End Date Marianna Wagner APRN.HIGH SCHOOL HISTORY TEACHER [address] [place] [address] PCP - General Family Medicine 08/09/23 Trung Bob MD [address] [address] Physician Cardiology 06/10/18 Radha Etienne, ELIS Primary Care Certified Public Accountant 07/07/24 Remote Pilot Operator Relationship Specialty Start Date End Date Josseline Call DO [address] [place] [address] PCP - General Family Medicine 07/11/24 Trung Bob MD [address] [facility] [address] [address] Physician Cardiology 06/10/18 Radha Etienne, RN Primary Care Certified Public Accountant 07/17/24 07/17/24 Remote Pilot Operator Relationship Specialty Start Date End Date Marianna Wagner 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 [address] [place] [address] PCP - General Family Medicine 08/09/23 Trung Bob MD [address] [address] Physician Cardiology 06/10/18 Radha Etienne, RN Primary Care Certified Public Accountant 07/07/24 Team Status: Inactive Member Role Status Dates [facility] Active Start: July 20, 2024 End: July 20, 2024 Dr. Trung Bob MD Attending Provider Active S tart: July 20, 2024 End: July 20, 2024 Team Status: Active Member Role Status Dates Marianna Wagner TRACTOR CRANE OPERATOR, TRACTOR CRANE OPERATOR-C Primary Care Provider Active Start: July 12, 2024 Dr. Perez Ribeiro , Emergency Provider Active Start: July 12, 2024 Dr. Melonie De La Rosa DO Admit Provider Active Start : July 12, 2024 Dr. Melonie De La Rosa DO Other Provider Active Start : July 12, 2024 Dr. Piper Fontanez MD Other Provider Active Sta rt: [...] art: August 02, 2024 Dr. Valeriy Connell , Other Provider Active Star t: August 02, [...] art: August 03, 2024 Dr. Valeriy Connell , Other Provider Active Star t: August 03, 2024 Dr. Valeriy Ross MD Other Provider Active Start : August 03, 2024 Remote Pilot Operator Relationship Specialty Start Date End Date Josseline Call Fawad, DO [address] [place] [address] PCP - General Family Medicine 07/11/24 Trung Bob MD [address] [address] Physician Cardiology 06/10/18 Remote Pilot Operator Relationship Specialty Start Date End Date Josseline Call DO [address] [place] [address] PCP - General Family Medicine 07/11/24 Trung Bob MD [address] [address] Physician Cardiology 06/10/18 Team Status: Active Member Role/Relationship Status Dates Sigrid GARZA, DO Primary Care Provider Active Team Status: Inactive Member Role/Relationship Status Dates Dr. Rolan Klusty-Kai , DO Referring Provider Activ e Start: June 25, 2024 End: June 28, 2024 Dr. Rolan Romero , DO Emergency Provider Activ e Start: June 25, 2024 End: June 28, 2024 Marianna Wagner TRACTOR CRANE OPERATOR, TRACTOR CRANE OPERATOR-C Primary Care Provider Active Start: June 25, [...] e Start: June 26, 2024 Marianna Wagner TRACTOR CRANE OPERATOR, TRACTOR CRANE OPERATOR-C Primary Care Provider Active Start: June 26, [...] e Start: June 26, 2024 Marianna Wagner TRACTOR CRANE OPERATOR, TRACTOR CRANE OPERATOR-C Primary Care Provider Active Start: June 26, [...] e Start: June 27, 2024 Marianna Wagner TRACTOR CRANE OPERATOR, TRACTOR CRANE OPERATOR-C Primary Care Provider Active Start: June 27, [...] e Start: June 27, 2024 Marianna Wagner TRACTOR CRANE OPERATOR, TRACTOR CRANE OPERATOR-C Primary Care Provider Active Start: June 27, [...] e Start: June 28, 2024 Marianna Wagner TRACTOR CRANE OPERATOR, TRACTOR CRANE OPERATOR-C Primary Care Provider Active Start: June 28, [...] e Start: June 28, 2024 Marianna Wagner TRACTOR CRANE OPERATOR, TRACTOR CRANE OPERATOR-C Primary Care Provider Active Start: June 28, [...] Active Member Role/Relationship Status Dates Marianna Wagner TRACTOR CRANE OPERATOR, TRACTOR CRANE OPERATOR-C Primary Care Provider Active Start: June 30, [...] Status: Inactive Member Role/Relationship Status Dates Marianna Wagner TRACTOR CRANE OPERATOR, TRACTOR CRANE OPERATOR-C Primary Care Provider Active Start: June 30, [...] Active Member Role/Relationship Status Dates Marianna Wagner TRACTOR CRANE OPERATOR, TRACTOR CRANE OPERATOR-C Primary Care Provider Active Start: July 01, [...] Active Member Role/Relationship Status Dates Marianna Fátima TRACTOR CRANE OPERATOR, TRACTOR CRANE OPERATOR-C Primary Care Provider Active Start: July 02, [...] Active Member Role/Relationship Status Dates Marianna Fátima TRACTOR CRANE OPERATOR, TRACTOR CRANE OPERATOR-C Primary Care Provider Active Start: July 03, [...] Active Member Role/Relationship Status Dates Marianna Fátima TRACTOR CRANE OPERATOR, TRACTOR CRANE OPERATOR-C Primary Care Provider Active Start: July 03, 2024 Dr. Yaneli Carbone MD Attending Provider Active Start: July 03, 2024 Team Status: Active Member Role/Relationship Status Dates Marianna Fátima TRACTOR CRANE OPERATOR, TRACTOR CRANE OPERATOR-C Primary Care Provider Active Start: July 03, [...] Active Member Role/Relationship Status Dates Marianna Wagner TRACTOR CRANE OPERATOR, TRACTOR CRANE OPERATOR-C Primary Care Provider Active Start: July 04, [...] Active Member Role/Relationship Status Dates Marianna Wagner TRACTOR CRANE OPERATOR, TRACTOR CRANE OPERATOR-C Primary Care Provider Active Start: July 04, 2024 Dr. Narendra Gonzalez , DO Emergency Provider Active Start: July 04, 2024 Dr. Conrado Pro , DO Admit Provider Active Start: July 04, 2024 Dr. Conrado Pro , DO Other Provider Active Start: July 04, 2024 Dr. Chris Aragon , DO Attending Provider Active Start: July 04, 2024 Dr. Chris Araogn , DO Other Provider Active Start: July 04, 2024 Dr. Melonie De La Rosa , DO Other Provider Active Start : July 04, 2024 Dr. Yaneli Carbone MD Other Provider Active Star t: July 04, 2024 Team Status: Active Member Role/Relationship Status Dates Marianna Wagner TRACTOR CRANE OPERATOR, TRACTOR CRANE OPERATOR-C Primary Care Provider Active Start: July 04, [...] Active Member Role/Relationship Status Dates Marianna Wagner TRACTOR CRANE OPERATOR, TRACTOR CRANE OPERATOR-C Primary Care Provider Active Start: July 05, [...] Active Member Role/Relationship Status Dates Marianna Wagner TRACTOR CRANE OPERATOR, TRACTOR CRANE OPERATOR-C Primary Care Provider Active Start: July 06, [...] Active Member Role/Relationship Status Dates Marianna Wagner TRACTOR CRANE OPERATOR, TRACTOR CRANE OPERATOR-C Primary Care Provider Active Start: July 11, 2024 Dr. Perez Ribeiro , DO Emergency Provider Active Start: July 11, 2024 Dr. Melonie De La Rosa , DO Attending Provider Active S tart: July 11, 2024 Team Status: Inactive Member Role/Relationship Status Dates Dr. Perez Ribeiro , DO Emergency Provider Active Start: July 11, 2024 End: July 14, 2024 Dr. Melonie De La Rosa DO Admit Provider Active Start : July 11, 2024 End: July 14, 2024 Dr. Melonie De La Rosa DO Other Provider Active Start : July 11, 2024 End: July 14, 2024 Dr. Piper Fontanez MD Other Provider Active Sta rt: July 11, 2024 End: July 14, 2024 Dr. Conrado Morel MD Attending Provider Active Start: July 11, 2024 End: July 14, 2024 Sigrid Call [facility], DO Primary Care Provider Active Start: July 11, 2024 End: July 14, 2024 Team Status: Active Member Role/Relationship Status Dates Marianna Wagner TRACTOR CRANE OPERATOR, TRACTOR CRANE OPERATOR-C Primary Care Provider Active Start: July 12, 2024 Dr. Perez Ribeiro DO Emergency Provider Active Start: July 12, 2024 Dr. Melonie De La Rosa DO Admit Provider Active Start : July 12, 2024 Dr. Melonie De La Rosa DO Other Provider Active Start : July 12, 2024 Dr. Piper Fontanez MD Other Provider Active Sta rt: July 12, 2024 Dr. Conrado Morel MD Attending Provider Active Start: July 12, 2024 Dr. Conrado Morel MD Other Provider Active Star t: July 12, 2024 Team Status: Active Member Role/Relationship Status Dates Marianna Wagner TRACTOR CRANE OPERATOR, TRACTOR CRANE OPERATOR-C Primary Care Provider Active Start: July 12, 2024 Dr. Perez Ribeiro DO Emergency Provider Active Start: July 12, 2024 Dr. Melonie De La Rosa DO Admit Provider Active Start : July 12, 2024 Dr. Melonie De La Rosa DO Other Provider Active Start : July 12, 2024 Dr. Piper Fontanez MD Other Provider Active Sta rt: July 12, 2024 Dr. Conrado Morel MD Referring Provider Active Start: July 12, 2024 Dr. Conrado Morel MD Other Provider Active Star t: July 12, 2024 Dian BALDERAS PA-C Attending Provider Active Start: July 12, 2024 Team Status: Active Member Role/Relationship Status Dates Marianna Wagner TRACTOR CRANE OPERATOR, TRACTOR CRANE OPERATOR-C Primary Care Provider Active Start: July 13, 2024 Dr. Perez Ribeiro DO Emergency Provider Active Start: July 13, 2024 Dr. Melonie De La Rosa DO Admit Provider Active Start : July 13, 2024 Dr. Melonie De La Rosa DO Other Provider Active Start : July 13, 2024 Dr. Piper Fontanez MD Other Provider Active Sta rt: July 13, 2024 Dr. Conrado Morel MD Other Provider Active Star t: July 13, 2024 Dian Mendoza PA PA-C Attending Provider Active Start: July 13, 2024 Team Status: Active Member Role/Relationship Status Dates Marianna Wagner TRACTOR CRANE OPERATOR, TRACTOR CRANE OPERATOR-C Primary Care Provider Active Start: July 13, 2024 Dr. Perez Ribeiro DO Emergency Provider Active Start: July 13, 2024 Dr. Melonie De La Rosa DO Admit Provider Active Start : July 13, 2024 Dr. Melonie De La Rosa DO Other Provider Active Start : July 13, 2024 Dr. Piper Fontanez MD Other Provider Active Sta rt: [...] Active Start : July 14, 2024 Dr. Piper Fontanez MD Other Provider Active Sta rt: July 14, 2024 Dr. Conrado Morel MD Attending Provider Active Start: July 14, 2024 Dr. Conrado Morel MD Other Provider Active Star t: July 14, 2024 Sigrid KELLY DO Primary Care Provider Active Start: July 14, 2024 Team Status: Inactive Member Role/Relationship Status Dates Sigrid KELLY, DO Primary Care Provider Active Start: July 20, 2024 End: July 20, 2024 Dr. Trung Bob MD Attending Provider Active S tart: July 20, 2024 End: July 20, 2024 Team Status: Inactive Member Role/Relationship Status Dates Sigrid KELLY, DO Primary Care Provider Active Start: August 01, 2024 End: August 03, 2024 Dr. Tierney Macdonald , Emergency Provider Active Start: August 01, 2024 [...] Status: Active Member Role/Relationship Status Dates Sigrid KELLY DO Primary Care [...] Status: Active Member Role/Relationship Status Dates Sigrid KELLY DO Primary Care [...] Status: Active Member Role/Relationship Status Dates Sigrid KELLY DO Primary Care Provider Active Start: August 03, 2024 Dr. Tierney Macdonald DO Emergency Provider Active Start: August 03, 2024 Dr. Iman Aguayo MD Admit Provider Active St art: August 03, 2024 Dr. Iman Aguayo MD Attending Provider Active Start: August 03, 2024 Dr. Iman Aguayo MD Other Provider Active St art: August 03, 2024 Dr. Valeriy Connell , Other Provider Active Star t: August 03, 2024 Dr. Valeriy Ross MD Other Provider Active Start : August 03, 2024 Team Status: Active Member Role/Relationship Status Dates Sigrid Call VS, DO Primary Care Provider Active Start: August 29, 2024 Dr. Vinh Lomeli MD Emergency Provider Active S tart: August 29, 2024 Dr. Jacky Vila MD Attending Provider Active Start: August 29, 2024 Team Status: Active Member Role/Relationship Status Dates Sigrid Call VS, DO Primary Care Provider Active Start: August 29, 2024 Dr. Vinh Lomeli MD Emergency Provider Active S tart: August 29, 2024 Dr. Jacky Vila MD Admit Provider Active Star t: August 29, 2024 Dr. Jacky Vila MD Attending Provider Active Start: August 29, 2024 Team Status: Inactive Member Role/Relationship Status Dates Sigrid Jakub [facility], DO Primary Care Provider Active Start: August 29, 2024 End: September 04, 2024 Dr. Vinh Lomeli MD Emergency Provider Active S tart: August 29, 2024 End: September 04, 2024 Dr. Jacky Vila MD Admit Provider Active Star t: August 29, 2024 End: September 04, 2024 Dr. Jacky Vila MD Other Provider Active Star t: August 29, 2024 End: September 04, 2024 Dr. Lucas Frausto MD Attending Provider Active Start: August 29, 2024 End: September 04, 2024 Dr. Trenton Strong MD Other Provider Active Start: August 29, 2024 End: September 04, 2024 Dr. Alcides Tucker MD Other Provider Active Start: August 29, 2024 End: September 04, 2024 Dr. Aramis Palacios MD Other Provider Active Star t: August 29, 2024 End: September 04, 2024 Dr. Barry Sheehan DO Other Provider Active Start : August 29, 2024 End: September 04, 2024 Dr. Conrado Snyder MD Other Provider Active Sta rt: August 29, 2024 End: September 04, 2024 Dr. Aldo Castellano MD Other Provider Active St art: August 29, 2024 End: September 04, 2024 Dr. Mt Kearns MD Other Provider Active S tart: August 29, 2024 End: September 04, 2024 Dr. Chen Merrill MD Other Provider Active Start: August 29, 2024 End: September 04, 2024 Dr. Mundo Marcelino MD Other Provider Active Start : August 29, 2024 End: September 04, 2024 Dr. Robinson Madrid MD Other Provider Active Start: August 29, 2024 End: September 04, 2024 Dr. Suleman Denis MD Other Provider Active Start : August 29, 2024 End: September 04, 2024 Dr. Meli Miles MD Other Provider Active Star t: August 29, 2024 End: September 04, 2024 Dr. Tiara Horowitz MD Other Provider Active Sta rt: August 29, 2024 End: September 04, 2024 Dr. Monisha Fontenot MD Other Provider Active Sta rt: August 29, 2024 End: September 04, 2024 Dr. Yunier Allred MD Other Provider Active Star t: August 29, 2024 End: September 04, 2024 Dr. Jose Pacheco MD Other Provider Active St art: August 29, 2024 End: September 04, 2024 Dr. Marquez Elmore MD Other Provider Active Star t: August 29, 2024 End: September 04, 2024 Dr. Wilbert Lozano , Other Provider Active St art: August 29, 2024 End: September 04, 2024 Dr. Abdirahman Gardner MD Other Provider Active Start: August 29, 2024 End: September 04, 2024 Dr. Vladimir Matson MD Other Provider Active St art: August 29, 2024 End: September 04, 2024 Dr. Dwight Vora DO Other Provider Active Start: August 29, 2024 End: September 04, 2024 Dr. Bronson Peterson MD Other Provider Active Star t: August 29, 2024 End: September 04, 2024 Dr. Toni Dodge MD Other Provider Active Sta rt: August 29, 2024 End: September 04, 2024 Team Status: Active Member Role/Relationship Status Dates Sigrid Call [facility], DO Primary Care Provider Active Start: August 30, 2024 Dr. Vinh Lomeli MD Emergency Provider Active S tart: August 30, 2024 Dr. Jacky Vila MD Admit Provider Active Star t: August 30, 2024 Dr. Jacky Vila MD Other Provider Active Star t: August 30, 2024 Dr. Lucas Frausto MD Attending Provider Active Start: August 30, 2024 Dr. Lucas Frausto MD Other Provider Active Start: August 30, 2024 Team Status: Active Member Role/Relationship Status Dates Sigrid Call [facility], DO Primary Care Provider Active Start: August 30, 2024 Dr. Vinh Lomeli MD Emergency Provider Active S tart: August 30, 2024 Dr. Jacky Vila MD Admit Provider Active Star t: August 30, 2024 Dr. Jacky Vila MD Other Provider Active Star t: August 30, 2024 Dr. Lucas Frausto MD Other Provider Active Start: August 30, 2024 Bernadette Pisano NP-Stephen Attending Provider Active S tart: August 30, 2024 Team Status: Active Member Role/Relationship Status Dates Sigrid Call [facility], DO Primary Care Provider Active Start: August 31, 2024 Dr. Vinh Lomeli MD Emergency Provider Active S tart: August 31, 2024 Dr. Jacky Vila MD Admit Provider Active Star t: August 31, 2024 Dr. Jacky Vila MD Other Provider Active Star t: August 31, 2024 Dr. Lucas Frausto MD Referring Provider Active Start: August 31, 2024 Dr. Lucas Frausto MD Other Provider Active Start: August 31, 2024 Dr. Trenton Strong MD Other Provider Active Start: August 31, 2024 Dr. Alcides Tucker MD Other Provider Active Start: August 31, 2024 Dr. Aramis Palacios MD Other Provider Active Star t: August 31, 2024 Dr. Barry Sheehan DO Attending Provider Active S tart: August 31, 2024 Dr. Barry Sheehan , Other Provider Active Start : August 31, 2024 Dr. Conrado Snyder MD Other Provider Active Sta rt: August 31, 2024 Dr. Aldo Castellano MD Other Provider Active St art: August 31, 2024 Dr. Mt Kearns MD Other Provider Active S tart: August 31, 2024 Dr. Chen Merrill MD Other Provider Active Start: August 31, 2024 Dr. Mundo Marcelino MD Other Provider Active Start : August 31, 2024 Dr. Robinson Madrid MD Other Provider Active Start: August 31, 2024 Dr. Suleman Denis MD Other Provider Active Start : August 31, 2024 Dr. Meli Miles MD Other Provider Active Star t: August 31, 2024 Dr. Tiara Horowitz MD Other Provider Active Sta rt: August 31, 2024 Dr. Monisha Fontenot MD Other Provider Active Sta rt: August 31, 2024 Dr. Yunier Allred MD Other Provider Active Star t: August 31, 2024 Dr. Jose Pacheco MD Other Provider Active St art: August 31, 2024 Dr. Marquez Elmore MD Other Provider Active Star t: August 31, 2024 Dr. Wilbert Lozano DO Other Provider Active St art: August 31, 2024 Dr. Abdirahman Gardner MD Other Provider Active Start: August 31, 2024 Dr. Vladimir Matson MD Other Provider Active St art: August 31, 2024 Dr. Dwight Vora DO Other Provider Active Start: August 31, 2024 Dr. Bronson Peterson MD Other Provider Active Star t: August 31, 2024 Dr. Toni Dodge MD Other Provider Active Sta rt: August 31, 2024 Team Status: Active Member Role/Relationship Status Dates Sigrid Call DO Stephen Primary Care Provider Active Start: August 31, 2024 Dr. Vinh Lomeli MD Emergency Provider Active S tart: August 31, 2024 Dr. Jacky Vila MD Admit Provider Active Star t: August 31, 2024 Dr. Jacky Vila MD Other Provider Active Star t: August 31, 2024 Dr. Lucas Frausto MD Attending Provider Active Start: August 31, 2024 Dr. Lucas Frausto MD Other Provider Active Start: August 31, 2024 Dr. Trenton Strong MD Other Provider Active Start: August 31, 2024 Dr. Alcides Tucker MD Other Provider Active Start: August 31, 2024 Dr. Aramis Palacios MD Other Provider Active Star t: August 31, 2024 Dr. Barry Sheehan DO Other Provider Active Start : August 31, 2024 Dr. Conrado Snyder MD Other Provider Active Sta rt: August 31, 2024 Dr. Aldo Castellano MD Other Provider Active St art: August 31, 2024 Dr. Mt Kearns MD Other Provider Active S tart: August 31, 2024 Dr. Chen Merrill MD Other Provider Active Start: August 31, 2024 Dr. Mundo Marcelino MD Other Provider Active Start : August 31, 2024 Dr. Robinson Madrid MD Other Provider Active Start: August 31, 2024 Dr. Suleman Denis MD Other Provider Active Start : August 31, 2024 Dr. Meli iMles MD Other Provider Active Star t: August 31, 2024 Dr. Tiara Horowitz MD Other Provider Active Sta rt: August 31, 2024 Dr. Monisha Fontenot MD Other Provider Active Sta rt: August 31, 2024 Dr. Yunier Allred MD Other Provider Active Star t: August 31, 2024 Dr. Jose Pacheco MD Other Provider Active St art: August 31, 2024 Dr. Marquez Elmore MD Other Provider Active Star t: August 31, 2024 Dr. Wilbert Lozano DO Other Provider Active St art: August 31, 2024 Dr. Abdirahman Gardner MD Other Provider Active Start: August 31, 2024 Dr. Vladimir Matson MD Other Provider Active St art: August 31, 2024 Dr. Dwight Vora DO Other Provider Active Start: August 31, 2024 Dr. Bronson Peterson MD Other Provider Active Star t: August 31, 2024 Dr. Toni Dodge MD Other Provider Active Sta rt: August 31, 2024 Team Status: Active Member Role/Relationship Status Dates Sigrid Yaner [facility], DO Primary Care Provider Active Start: August 31, 2024 Dr. Vinh Lomeli MD Emergency Provider Active S tart: August 31, 2024 Dr. Jacky Vila MD Admit Provider Active Star t: August 31, 2024 Dr. Jacky Vila MD Other Provider Active Star t: August 31, 2024 Dr. Lucas Frausto MD Referring Provider Active Start: August 31, 2024 Dr. Lucas Frausto MD Other Provider Active Start: August 31, 2024 Dr. Trenton Strong MD Other Provider Active Start: August 31, 2024 Dr. Alcides Tucker MD Other Provider Active Start: August 31, 2024 Dr. Aramis Palacios MD Other Provider Active Star t: August 31, 2024 Dr. Barry Sheehan DO Other Provider Active Start : August 31, 2024 Dr. Conrado Snyder MD Other Provider Active Sta rt: August 31, 2024 Dr. Aldo Castellano MD Other Provider Active St art: August 31, 2024 Dr. Mt Kearns MD Other Provider Active S tart: August 31, 2024 Dr. Chen Merrill MD Other Provider Active Start: August 31, 2024 Dr. Mundo Marcelino MD Other Provider Active Start : August 31, 2024 Dr. Robinson Madrid MD Other Provider Active Start: August 31, 2024 Dr. Suleman Denis MD Other Provider Active Start : August 31, 2024 Dr. Meli Miles MD Other Provider Active Star t: August 31, 2024 Dr. Tiara Horowitz MD Other Provider Active Sta rt: August 31, 2024 Dr. Monisha Fontenot MD Other Provider Active Sta rt: August 31, 2024 Dr. Yunier Allred MD Other Provider Active Star t: August 31, 2024 Dr. Jose Pacheco MD Other Provider Active St art: August 31, 2024 Dr. Marquez Elmore MD Other Provider Active Star t: August 31, 2024 Dr. Wilbert Lozano DO Other Provider Active St art: August 31, 2024 Dr. Abdirahman Gardner MD Other Provider Active Start: August 31, 2024 Dr. Vladimir Matson MD Other Provider Active St art: August 31, 2024 Dr. Dwight Vora DO Other Provider Active Start: August 31, 2024 Dr. Bronson Peterson MD Other Provider Active Star t: August 31, 2024 Dr. Toni Dodge MD Other Provider Active Sta rt: August 31, 2024 Dr. Antony Espitia DO Attending Provider Active Start: August 31, 2024 Team Status: Active Member Role/Relationship Status Dates Sigrid Yaner [facility], DO Primary Care Provider Active Start: September 01, 2024 Dr. Vinh Lomeli MD Emergency Provider Active S tart: September 01, 2024 Dr. Jacky Vila MD Admit Provider Active Star t: September 01, 2024 Dr. Jacky Vila MD Other Provider Active Star t: September 01, 2024 Dr. Lucas Frausto MD Referring Provider Active Start: September 01, 2024 Dr. Lucas Frausto MD Other Provider Active Start: September 01, 2024 Dr. Trenton Strong MD Other Provider Active Start: September 01, 2024 Dr. Alcides Tucker MD Other Provider Active Start: September 01, 2024 Dr. Aramis Palacios MD Other Provider Active Star t: September 01, 2024 Dr. Barry Sheehan DO Attending Provider Active S tart: September 01, 2024 Dr. Barry Sheehan DO Other Provider Active Start : September 01, 2024 Dr. Conrado Snyder MD Other Provider Active Sta rt: September 01, 2024 Dr. Aldo Castellano MD Other Provider Active St art: September 01, 2024 Dr. Mt Kearns MD Other Provider Active S tart: September 01, 2024 Dr. Chen Merrill MD Other Provider Active Start: September 01, 2024 Dr. Mundo Marcelino MD Other Provider Active Start : September 01, 2024 Dr. Robinson Madrid MD Other Provider Active Start: September 01, 2024 Dr. Suleman Denis MD Other Provider Active Start : September 01, 2024 Dr. Meli Miles MD Other Provider Active Star t: September 01, 2024 Dr. Tiara Horowitz MD Other Provider Active Sta rt: September 01, 2024 Dr. Monisha Fontenot MD Other Provider Active Sta rt: September 01, 2024 Dr. Yunier Allred MD Other Provider Active Star t: September 01, 2024 Dr. Jose Pacheco MD Other Provider Active St art: September 01, 2024 Dr. Marquez Elmore MD Other Provider Active Star t: September 01, 2024 Dr. Wilbert Lozano , Other Provider Active St art: September 01, 2024 Dr. Abdirahman Gardner MD Other Provider Active Start: September 01, 2024 Dr. Vladimir Matson MD Other Provider Active St art: September 01, 2024 Dr. Dwight Vora DO Other Provider Active Start: September 01, 2024 Dr. Bronson Peterson MD Other Provider Active Star t: September 01, 2024 Dr. Toni Dodge MD Other Provider Active Sta rt: September 01, 2024 Team Status: Active Member Role/Relationship Status Dates Sigrid Call [facility], Primary Care Provider Active Start: September 01, 2024 Dr. Vinh Lomeli MD Emergency Provider Active S tart: September 01, 2024 Dr. Jacky Vila MD Admit Provider Active Star t: September 01, 2024 Dr. Jacky Vila MD Other Provider Active Star t: September 01, 2024 Dr. Lucas Frausto MD Attending Provider Active Start: September 01, 2024 Dr. Lucas Frausto MD Other Provider Active Start: September 01, 2024 Dr. Trenton Strong MD Other Provider Active Start: September 01, 2024 Dr. Alcides Tucker MD Other Provider Active Start: September 01, 2024 Dr. Aramis Palacios MD Other Provider Active Star t: September 01, 2024 Dr. Barry Sheehan DO Other Provider Active Start : September 01, 2024 Dr. Conrado Snyder MD Other Provider Active Sta rt: September 01, 2024 Dr. Aldo Castellano MD Other Provider Active St art: September 01, 2024 Dr. Mt Kearns MD Other Provider Active S tart: September 01, 2024 Dr. Chen Merrill MD Other Provider Active Start: September 01, 2024 Dr. Mundo Marcelino MD Other Provider Active Start : September 01, 2024 Dr. Robinson Madrid MD Other Provider Active Start: September 01, 2024 Dr. Suleman Denis MD Other Provider Active Start : September 01, 2024 Dr. Meli Miles MD Other Provider Active Star t: September 01, 2024 Dr. Tiara Horowitz MD Other Provider Active Sta rt: September 01, 2024 Dr. Monisha Fontenot MD Other Provider Active Sta rt: September 01, 2024 Dr. Yunier Allred MD Other Provider Active Star t: September 01, 2024 Dr. Jose Pacheco MD Other Provider Active St art: September 01, 2024 Dr. Marquez Elmore MD Other Provider Active Star t: September 01, 2024 Dr. Wilbert Lozano DO Other Provider Active St art: September 01, 2024 Dr. Abdirahman Gardner MD Other Provider Active Start: September 01, 2024 Dr. Vladimir Matson MD Other Provider Active St art: September 01, 2024 Dr. Dwight Vora DO Other Provider Active Start: September 01, 2024 Dr. Bronson Peterson MD Other Provider Active Star t: September 01, 2024 Dr. Toni Dodge MD Other Provider Active Sta rt: September 01, 2024 Team Status: Active Member Role/Relationship Status Dates Sigrid Call [facility], DO Primary Care Provider Active Start: September 01, 2024 Dr. Vinh Lomeli MD Emergency Provider Active S tart: September 01, 2024 Dr. Jacky Vila MD Admit Provider Active Star t: September 01, 2024 Dr. Jacky Vila MD Other Provider Active Star t: September 01, 2024 Dr. Lucas Frausto MD Other Provider Active Start: September 01, 2024 Dr. Trenton Strong MD Other Provider Active Start: September 01, 2024 Dr. Alcides Tucker MD Other Provider Active Start: September 01, 2024 Dr. Aramis Palacios MD Other Provider Active Star t: September 01, 2024 Dr. Barry Sheehan DO Other Provider Active Start : September 01, 2024 Dr. Conrado Snyder MD Other Provider Active Sta rt: September 01, 2024 Dr. Aldo Castellano MD Other Provider Active St art: September 01, 2024 Dr. Mt Kearns MD Other Provider Active S tart: September 01, 2024 Dr. Chen Merrill MD Other Provider Active Start: September 01, 2024 Dr. Mundo Marcelino MD Other Provider Active Start : September 01, 2024 Dr. Robinson Madrid MD Other Provider Active Start: September 01, 2024 Dr. Suleman Denis MD Other Provider Active Start : September 01, 2024 Dr. Meli Miles MD Other Provider Active Star t: September 01, 2024 Dr. Tiara Horowitz MD Other Provider Active Sta rt: September 01, 2024 Dr. Monisha Fontenot MD Other Provider Active Sta rt: September 01, 2024 Dr. Yunier Allred MD Other Provider Active Star t: September 01, 2024 Dr. Jose Pacheco MD Other Provider Active St art: September 01, 2024 Dr. Marquez Elmore MD Other Provider Active Star t: September 01, 2024 Dr. Wilbert Lozano DO Other Provider Active St art: September 01, 2024 Dr. Abdirahman Gardner MD Other Provider Active Start: September 01, 2024 Dr. Vladimir Matson MD Other Provider Active St art: September 01, 2024 Dr. Dwight Vora DO Other Provider Active Start: September 01, 2024 Dr. Bronson Peterson MD Other Provider Active Star t: September 01, 2024 Dr. Toni Dodge MD Other Provider Active Sta rt: September 01, 2024 Bernadette Pisano NP-Stephen Attending Provider Active S tart: September 01, 2024 Team Status: Active Member Role/Relationship Status Dates Sigrid Call [facility], DO Primary Care Provider Active Start: September 01, 2024 Dr. Vinh Lomeli MD Emergency Provider Active S tart: September 01, 2024 Dr. Jacky Vila MD Admit Provider Active Star t: September 01, 2024 Dr. Jacky Vila MD Other Provider Active Star t: September 01, 2024 Dr. Lucas Frausto MD Referring Provider Active Start: September 01, 2024 Dr. Lucas Frausto MD Other Provider Active Start: September 01, 2024 Dr. Trenton Strong MD Other Provider Active Start: September 01, 2024 Dr. Alcides Tucker MD Other Provider Active Start: September 01, 2024 Dr. Aramis Palacios MD Other Provider Active Star t: September 01, 2024 Dr. Barry Sheehan DO Other Provider Active Start : September 01, 2024 Dr. Conrado Snyder MD Other Provider Active Sta rt: September 01, 2024 Dr. Aldo Castellano MD Other Provider Active St art: September 01, 2024 Dr. Mt Kearns MD Other Provider Active S tart: September 01, 2024 Dr. Chen Merrill MD Other Provider Active Start: September 01, 2024 Dr. Mundo Marcelino MD Other Provider Active Start : September 01, 2024 Dr. Robinson Madrid MD Other Provider Active Start: September 01, 2024 Dr. Suleman Denis MD Other Provider Active Start : September 01, 2024 Dr. Meli Miles MD Other Provider Active Star t: September 01, 2024 Dr. Tiara Horowitz MD Other Provider Active Sta rt: September 01, 2024 Dr. Monisha Fontenot MD Other Provider Active Sta rt: September 01, 2024 Dr. Yunier Allred MD Other Provider Active Star t: September 01, 2024 Dr. Jose Pacheco MD Other Provider Active St art: September 01, 2024 Dr. Marquez Elmore MD Other Provider Active Star t: September 01, 2024 Dr. Wilbert Lozano DO Other Provider Active St art: September 01, 2024 Dr. Abdirahman Gardner MD Other Provider Active Start: September 01, 2024 Dr. Vladimir Matson MD Other Provider Active St art: September 01, 2024 Dr. Dwight Vora DO Other Provider Active Start: September 01, 2024 Dr. Bronson Peterson MD Other Provider Active Star t: September 01, 2024 Dr. Toni Dodge MD Other Provider Active Sta rt: September 01, 2024 Dr. Antony Espitia DO Attending Provider Active Start: September 01, 2024 Team Status: Active Member Role/Relationship Status Dates [facility] Active Start: September 02, 2024 Dr. Vinh Lomeli MD Emergency Provider Active S tart: September 02, 2024 Dr. Jacky Vila MD Admit Provider Active Star t: September 02, 2024 Dr. Jacky Vila MD Other Provider Active Star t: September 02, 2024 Dr. Lucas Frausto MD Attending Provider Active Start: September 02, 2024 Dr. Lucas Frausto MD Other Provider Active Start: September 02, 2024 Dr. Trenton Strong MD Other Provider Active Start: September 02, 2024 Dr. Alcides Tucker MD Other Provider Active Start: September 02, 2024 Dr. Aramis Palacios MD Other Provider Active Star t: September 02, 2024 Dr. Barry Sheehan DO Other Provider Active Start : September 02, 2024 Dr. Conrado Snyder MD Other Provider Active Sta rt: September 02, 2024 Dr. Aldo Castellano MD Other Provider Active St art: September 02, 2024 Dr. Mt Kearns MD Other Provider Active S tart: September 02, 2024 Dr. Chen Merrill MD Other Provider Active Start: September 02, 2024 Dr. Mundo Marcelino MD Other Provider Active Start : September 02, 2024 Dr. Robinson Madrid MD Other Provider Active Start: September 02, 2024 Dr. Suleman Denis MD Other Provider Active Start : September 02, 2024 Dr. Meli Miles MD Other Provider Active Star t: September 02, 2024 Dr. Tiara Horowitz MD Other Provider Active Sta rt: September 02, 2024 Dr. Monisha Fontenot MD Other Provider Active Sta rt: September 02, 2024 Dr. Yunier Allred MD Other Provider Active Star t: September 02, 2024 Dr. Jose Pacheco MD Other Provider Active St art: September 02, 2024 Dr. Marquez Elmore MD Other Provider Active Star t: September 02, 2024 Dr. Wilbert Lozano DO Other Provider Active St art: September 02, 2024 Dr. Abdirahman Gardner MD Other Provider Active Start: September 02, 2024 Dr. Vladimir Matson MD Other Provider Active St art: September 02, 2024 Dr. Dwight Vora , Other Provider Active Start: September 02, 2024 Dr. Bronson Peterson MD Other Provider Active Star t: September 02, 2024 Dr. Toni Dodge MD Other Provider Active Sta rt: September 02, 2024 Team Status: Active Member Role/Relationship Status Dates Sigrid Call [facility], DO Primary Care Provider Active Start: September 03, 2024 Dr. Vinh Lomeli MD Emergency Provider Active S tart: September 03, 2024 Dr. Jacky Vila MD Admit Provider Active Star t: September 03, 2024 Dr. Jacyk Vila MD Other Provider Active Star t: September 03, 2024 Dr. Lucas Frausto MD Attending Provider Active Start: September 03, 2024 Dr. Lucas Frausto MD Other Provider Active Start: September 03, 2024 Dr. Trenton Strong MD Other Provider Active Start: September 03, 2024 Dr. Alcides Tucker MD Other Provider Active Start: September 03, 2024 Dr. Aramis Palacios MD Other Provider Active Star t: September 03, 2024 Dr. Barry Sheehan DO Other Provider Active Start : September 03, 2024 Dr. Conrado Snyder MD Other Provider Active Sta rt: September 03, 2024 Dr. Aldo Castellano MD Other Provider Active St art: September 03, 2024 Dr. [place] K[place] MD Other Provider Active S tart: September 03, 2024 Dr. Chen Merrill MD Other Provider Active Start: September 03, 2024 Dr. Mundo Marcelino MD Other Provider Active Start : September 03, 2024 Dr. Robinson Madrid MD Other Provider Active Start: September 03, 2024 Dr. Suleman Denis MD Other Provider Active Start : September 03, 2024 Dr. Meli Miles MD Other Provider Active Star t: September 03, 2024 Dr. Tiara Horowitz MD Other Provider Active Sta rt: September 03, 2024 Dr. Monisha Fontenot MD Other Provider Active Sta rt: September 03, 2024 Dr. Yunier Allred MD Other Provider Active Star t: September 03, 2024 Dr. Jose Pacheco MD Other Provider Active St art: September 03, 2024 Dr. Marquez Elmore MD Other Provider Active Star t: September 03, 2024 Dr. Wilbert Lozano , Other Provider Active St art: September 03, 2024 Dr. Abdirahman Gardner MD Other Provider Active Start: September 03, 2024 Dr. Vladimir Matson MD Other Provider Active St art: September 03, 2024 Dr. Dwight Vora , Other Provider Active Start: September 03, 2024 Dr. Bronson Peterson MD Other Provider Active Star t: September 03, 2024 Dr. Toni Dodge MD Other Provider Active Sta rt: September 03, 2024 Team Status: Active Member Role/Relationship Status Dates Sigrid Call [facility], Primary Care Provider Active Start: September 04, 2024 Dr. Vinh Lomeli MD Emergency Provider Active S tart: September 04, 2024 Dr. Jacky Vila MD Admit Provider Active Star t: September 04, 2024 Dr. Jacky Vila MD Other Provider Active Star t: September 04, 2024 Dr. Lucas Frausto MD Attending Provider Active Start: September 04, 2024 Dr. Lucas Frausto MD Other Provider Active Start: September 04, 2024 Dr. Trenton Strong MD Other Provider Active Start: September 04, 2024 Dr. Alcides Tucker MD Other Provider Active Start: September 04, 2024 Dr. Aramis Palacios MD Other Provider Active Star t: September 04, 2024 Dr. Barry Sheehan DO Other Provider Active Start : September 04, 2024 Dr. Conrado Snyder MD Other Provider Active Sta rt: September 04, 2024 Dr. Aldo Castellano MD Other Provider Active St art: September 04, 2024 Dr. Mt K[place]ns MD Other Provider Active S tart: September 04, 2024 Dr. Chen Merrill MD Other Provider Active Start: September 04, 2024 Dr. Mundo Marcelino MD Other Provider Active Start : September 04, 2024 Dr. Robinson Madrid MD Other Provider Active Start: September 04, 2024 Dr. Suleman Denis MD Other Provider Active Start : September 04, 2024 Dr. Meli Miles MD Other Provider Active Star t: September 04, 2024 Dr. Tiara Horowitz MD Other Provider Active Sta rt: September 04, 2024 Dr. Monisha Fontenot MD Other Provider Active Sta rt: September 04, 2024 Dr. Yunier Allred MD Other Provider Active Star t: September 04, 2024 Dr. Jose Pacheco MD Other Provider Active St art: September 04, 2024 Dr. Marquez Elmore MD Other Provider Active Star t: September 04, 2024 Dr. Wilbert Lozano DO Other Provider Active St art: September 04, 2024 Dr. Abdirahman Gardner MD Other Provider Active Start: September 04, 2024 Dr. Vladimir Matson MD Other Provider Active St art: September 04, 2024 Dr. Dwight Vora DO Other Provider Active Start: September 04, 2024 Dr. Bronson Peterson MD Other Provider Active Star t: September 04, 2024 Dr. Toni Dodge MD Other Provider Active Sta rt: September 04, 2024 Team Status: Inactive Member Role/Relationship Status Dates Sigrid KELLY DO Primary Care Provider Active Start: September 28, 2024 End: September 28, 2024 Sigrid KELLY DO Referring Provider Active Start: September 28, 2024 End: September 28, 2024 ANDREY Thompson Attending Provider Active Start: September 28, 2024 End: September 28, 2024 Team Status: Inactive Member Role/Relationship Status Dates Sigrid KELLY DO Primary Care Provider Active Start: October 06, 2024 End: October 06, 2024 Dr. Valeriy Flores DO Emergency Provider Active Start: October 06, 2024 End: October 06, 2024 Team Status: Inactive Member Role/Relationship Status Dates Sigrid KELLY DO Primary Care Provider Active Start: October 06, 2024 End: October 06, 2024 Dr. Valeriy Flores DO Attending Provider Active Start: October 06, 2024 End: October 06, 2024 Dr. Valeriy Flores DO Emergency Provider Active Start: October 06, 2024 End: October 06, 2024 Team Status: Inactive Member Role/Relationship Status Dates Sigrid Call [facility], DO Primary Care Provider Active Start: October 10, 2024 End: October 10, 2024 [facility] Referring Provider Active Start: October 10, 2024 End: October 10, 2024 Heather Daley TRACTOR CRANE OPERATOR, TRACTOR CRANE OPERATOR-C Attending Provider Active Start: October 10, 2024 End: October 10, 2024 Team Status: Active Member Role/Relationship Status Dates Sigrid Call [facility], DO Primary Care Provider Active Start: October 12, 2024 Dr. Perez Ribeiro DO Emergency Provider Active Start: October 12, 2024 Dr. Diana Willoughby MD Admit Provider Active Star t: October 12, 2024 Dr. Diana Willoughby MD Attending Provider Active Start: October 12, 2024 Dr. Diana Willoughby MD Other Provider Active Star t: October 12, 2024 Remote Pilot Operator Relationship Specialty Start Date End Date Josseline Call DO [address] [place] [address] PCP - General Family Medicine 07/11/24 Trung Bob MD [address] [id number] Physician Cardiology 06/10/18 Remote Pilot Operator Relationship Specialty Start Date End Date Josseline Call DO [address] [place] [address] PCP - General Family Medicine 07/11/24 Trung Bob MD [address] [place] [id number] Physician Cardiology 06/10/18 Source Comments (unrecognize d section and content) In the event this informatio n is protected by the Federal Confidentiality of Alcohol and Drug Abuse Patient Records regulations: The Federal rules restrict any use of the information to criminally investigate or prosecute any alcohol or drug abuse patient.[facility] the event this information is protected by the Federal Confidentiality of Alcohol and Drug Abuse Patient Records regulations: The Federal rules restrict any use of the information to criminally investigate or prosecute any alcohol or drug abuse patient.[facility] CenterIn the event this information is protected by the Federal Confidentiality of Alcohol and Drug Abuse Patient Records regulations: The Federal rules restrict any use of the information to criminally investigate or prosecute any alcohol or drug abuse patient.[facility] CenterIn the event this information is protected by the Federal Confidentiality of Alcohol and Drug Abuse Patient Records regulations: The Federal rules restrict any use of the information to criminally investigate or prosecute any alcohol or drug abuse patient.[facility] CenterIn the event this information is protected by the Federal Confidentiality of Alcohol and Drug Abuse Patient Records regulations: The Federal rules restrict any use of the information to criminally investigate or prosecute any alcohol or drug abuse patient.[facility] CenterIn the event this information is protected by the Federal Confidentiality of Alcohol and Drug Abuse Patient Records regulations: The Federal rules restrict any use of the information to criminally investigate or prosecute any alcohol or drug abuse patient.[facility] CenterIn the event this information is protected by the Federal Confidentiality of Alcohol and Drug Abuse Patient Records regulations: The Federal rules restrict any use of the information to criminally investigate or prosecute any alcohol or drug abuse patient.[facility] CenterIn the event this information is protected by the Federal Confidentiality of Alcohol and Drug Abuse Patient Records regulations: The Federal rules restrict any use of the information to criminally investigate or prosecute any alcohol or drug abuse patient.[facility] CenterIn the event this information is protected by the Federal Confidentiality of Alcohol and Drug Abuse Patient Records regulations: The Federal rules restrict any use of the information to criminally investigate or prosecute any alcohol or drug abuse patient.[facility] CenterIn the event this information is protected by the Federal Confidentiality of Alcohol and Drug Abuse Patient Records regulations: The Federal rules restrict any use of the information to criminally investigate or prosecute any alcohol or drug abuse patient.[facility] CenterIn the event this information is protected by the Federal Confidentiality of Alcohol and Drug Abuse Patient Records regulations: The Federal rules restrict any use of the information to criminally investigate or prosecute any alcohol or drug abuse patient.[facility] CenterIn the event this information is protected by the Federal Confidentiality of Alcohol and Drug Abuse Patient Records regulations: The Federal rules restrict any use of the information to criminally investigate or prosecute any alcohol or drug abuse patient.[facility] CenterIn the event this information is protected by the Federal Confidentiality of Alcohol and Drug Abuse Patient Records regulations: The Federal rules restrict any use of the information to criminally investigate or prosecute any alcohol or drug abuse patient.[facility] CenterIn the event this information is protected by the Federal Confidentiality of Alcohol and Drug Abuse Patient Records regulations: The Federal rules restrict any use of the information to criminally investigate or prosecute any alcohol or drug abuse patient.[facility] CenterIn the event this information is protected by the Federal Confidentiality of Alcohol and Drug Abuse Patient Records regulations: The Federal rules restrict any use of the information to criminally investigate or prosecute any alcohol or drug abuse patient.[facility] CenterIn the event this information is protected by the Federal Confidentiality of Alcohol and Drug Abuse Patient Records regulations: The Federal rules restrict any use of the information to criminally investigate or prosecute any alcohol or drug abuse patient.[facility] CenterIn the event this information is protected by the Federal Confidentiality of Alcohol and Drug Abuse Patient Records regulations: The Federal rules restrict any use of the information to criminally investigate or prosecute any alcohol or drug abuse patient.[facility] CenterIn the event this information is protected by the Federal Confidentiality of Alcohol and Drug Abuse Patient Records regulations: The Federal rules restrict any use of the information to criminally investigate or prosecute any alcohol or drug abuse patient.[facility] CenterIn the event this information is protected by the Federal Confidentiality of Alcohol and Drug Abuse Patient Records regulations: The Federal rules restrict any use of the information to criminally investigate or prosecute any alcohol or drug abuse patient.[facility] CenterIn the event this information is protected by the Federal Confidentiality of Alcohol and Drug Abuse Patient Records regulations: The Federal rules restrict any use of the information to criminally investigate or prosecute any alcohol or drug abuse patient.[facility] CenterIn the event this information is protected by the Federal Confidentiality of Alcohol and Drug Abuse Patient Records regulations: The Federal rules restrict any use of the information to criminally investigate or prosecute any alcohol or drug abuse patient.[facility] CenterIn the event this information is protected by the Federal Confidentiality of Alcohol and Drug Abuse Patient Records regulations: The Federal rules restrict any use of the information to criminally investigate or prosecute any alcohol or drug abuse patient.[facility] CenterIn the event this information is protected by the Federal Confidentiality of Alcohol and Drug Abuse Patient Records regulations: The Federal rules restrict any use of the information to criminally investigate or prosecute any alcohol or drug abuse patient.[facility] CenterIn the event this information is protected by the Federal Confidentiality of Alcohol and Drug Abuse Patient Records regulations: The Federal rules restrict any use of the information to criminally investigate or prosecute any alcohol or drug abuse patient.[facility] CenterIn the event this information is protected by the Federal Confidentiality of Alcohol and Drug Abuse Patient Records regulations: The Federal rules restrict any use of the information to criminally investigate or prosecute any alcohol or drug abuse patient.[facility] CenterIn the event this information is protected by the Federal Confidentiality of Alcohol and Drug Abuse Patient Records regulations: The Federal rules restrict any use of the information to criminally investigate or prosecute any alcohol or drug abuse patient.[facility] CenterIn the event this information is protected by the Federal Confidentiality of Alcohol and Drug Abuse Patient Records regulations: The Federal rules restrict any use of the information to criminally investigate or prosecute any alcohol or drug abuse patient.[facility] CenterIn the event this information is protected by the Federal Confidentiality of Alcohol and Drug Abuse Patient Records regulations: The Federal rules restrict any use of the information to criminally investigate or prosecute any alcohol or drug abuse patient.[facility] CenterIn the event this information is protected by the Federal Confidentiality of Alcohol and Drug Abuse Patient Records regulations: The Federal rules restrict any use of the information to criminally investigate or prosecute any alcohol or drug abuse patient.[facility] CenterIn the event this information is protected by the Federal Confidentiality of Alcohol and Drug Abuse Patient Records regulations: The Federal rules restrict any use of the information to criminally investigate or prosecute any alcohol or drug abuse patient.[facility] CenterIn the event this information is protected by the Federal Confidentiality of Alcohol and Drug Abuse Patient Records regulations: The Federal rules restrict any use of the information to criminally investigate or prosecute any alcohol or drug abuse patient.[facility] CenterIn the event this information is protected by the Federal Confidentiality of Alcohol and Drug Abuse Patient Records regulations: The Federal rules restrict any use of the information to criminally investigate or prosecute any alcohol or drug abuse patient.[facility] CenterIn the event this information is protected by the Federal Confidentiality of Alcohol and Drug Abuse Patient Records regulations: The Federal rules restrict any use of the information to criminally investigate or prosecute any alcohol or drug abuse patient.[facility] CenterIn the event this information is protected by the Federal Confidentiality of Alcohol and Drug Abuse Patient Records regulations: The Federal rules restrict any use of the information to criminally investigate or prosecute any alcohol or drug abuse patient.[facility] CenterIn the event this information is protected by the Federal Confidentiality of Alcohol and Drug Abuse Patient Records regulations: The Federal rules restrict any use of the information to criminally investigate or prosecute any alcohol or drug abuse patient.[facility] CenterIn the event this information is protected by the Federal Confidentiality of Alcohol and Drug Abuse Patient Records regulations: The Federal rules restrict any use of the information to criminally investigate or prosecute any alcohol or drug abuse patient.[facility] CenterIn the event this information is protected by the Federal Confidentiality of Alcohol and Drug Abuse Patient Records regulations: The Federal rules restrict any use of the information to criminally investigate or prosecute any alcohol or drug abuse patient.[facility] CenterIn the event this information is protected by the Federal Confidentiality of Alcohol and Drug Abuse Patient Records regulations: The Federal rules restrict any use of the information to criminally investigate or prosecute any alcohol or drug abuse patient.[facility] CenterIn the event this information is protected by the Federal Confidentiality of Alcohol and Drug Abuse Patient Records regulations: The Federal rules restrict any use of the information to criminally investigate or prosecute any alcohol or drug abuse patient.[facility] CenterIn the event this information is protected by the Federal Confidentiality of Alcohol and Drug Abuse Patient Records regulations: The Federal rules restrict any use of the information to criminally investigate or prosecute any alcohol or drug abuse patient.[facility] CenterIn the event this information is protected by the Federal Confidentiality of Alcohol and Drug Abuse Patient Records regulations: The Federal rules restrict any use of the information to criminally investigate or prosecute any alcohol or drug abuse patient.[facility] CenterIn the event this information is protected by the Federal Confidentiality of Alcohol and Drug Abuse Patient Records regulations: The Federal rules restrict any use of the information to criminally investigate or prosecute any alcohol or drug abuse patient.[facility] CenterIn the event this information is protected by the Federal Confidentiality of Alcohol and Drug Abuse Patient Records regulations: The Federal rules restrict any use of the information to criminally investigate or prosecute any alcohol or drug abuse patient.[facility] CenterIn the event this information is protected by the Federal Confidentiality of Alcohol and Drug Abuse Patient Records regulations: The Federal rules restrict any use of the information to criminally investigate or prosecute any alcohol or drug abuse patient.[facility] CenterIn the event this information is protected by the Federal Confidentiality of Alcohol and Drug Abuse Patient Records regulations: The Federal rules restrict any use of the information to criminally investigate or prosecute any alcohol or drug abuse patient.[facility] CenterIn the event this information is protected by the Federal Confidentiality of Alcohol and Drug Abuse Patient Records regulations: The Federal rules restrict any use of the information to criminally investigate or prosecute any alcohol or drug abuse patient.[facility] CenterIn the event this information is protected by the Federal Confidentiality of Alcohol and Drug Abuse Patient Records regulations: The Federal rules restrict any use of the information to criminally investigate or prosecute any alcohol or drug abuse patient.[facility] CenterIn the event this information is protected by the Federal Confidentiality of Alcohol and Drug Abuse Patient Records regulations: The Federal rules restrict any use of the information to criminally investigate or prosecute any alcohol or drug abuse patient.[facility] CenterIn the event this information is protected by the Federal Confidentiality of Alcohol and Drug Abuse Patient Records regulations: The Federal rules restrict any use of the information to criminally investigate or prosecute any alcohol or drug abuse patient.[facility] CenterIn the event this information is protected by the Federal Confidentiality of Alcohol and Drug Abuse Patient Records regulations: The Federal rules restrict any use of the information to criminally investigate or prosecute any alcohol or drug abuse patient.[facility] CenterIn the event this information is protected by the Federal Confidentiality of Alcohol and Drug Abuse Patient Records regulations: The Federal rules restrict any use of the information to criminally investigate or prosecute any alcohol or drug abuse patient.[facility] CenterIn the event this information is protected by the Federal Confidentiality of Alcohol and Drug Abuse Patient Records regulations: The Federal rules restrict any use of the information to criminally investigate or prosecute any alcohol or drug abuse patient.[facility] CenterIn the event this information is protected by the Federal Confidentiality of Alcohol and Drug Abuse Patient Records regulations: The Federal rules restrict any use of the information to criminally investigate or prosecute any alcohol or drug abuse patient.[facility] CenterIn the event this information is protected by the Federal Confidentiality of Alcohol and Drug Abuse Patient Records regulations: The Federal rules restrict any use of the information to criminally investigate or prosecute any alcohol or drug abuse patient.[facility] CenterIn the event this information is protected by the Federal Confidentiality of Alcohol and Drug Abuse Patient Records regulations: The Federal rules restrict any use of the information to criminally investigate or prosecute any alcohol or drug abuse patient.[facility] CenterIn the event this information is protected by the Federal Confidentiality of Alcohol and Drug Abuse Patient Records regulations: The Federal rules restrict any use of the information to criminally investigate or prosecute any alcohol or drug abuse patient.[facility] CenterIn the event this information is protected by the Federal Confidentiality of Alcohol and Drug Abuse Patient Records regulations: The Federal rules restrict any use of the information to criminally investigate or prosecute any alcohol or drug abuse patient.[facility] CenterIn the event this information is protected by the Federal Confidentiality of Alcohol and Drug Abuse Patient Records regulations: The Federal rules restrict any use of the information to criminally investigate or prosecute any alcohol or drug abuse patient.[facility] CenterIn the event this information is protected by the Federal Confidentiality of Alcohol and Drug Abuse Patient Records regulations: The Federal rules restrict any use of the information to criminally investigate or prosecute any alcohol or drug abuse patient.[facility] Reason for Visit (unrecogniz ed section and content) Reason Comments Results Reason Comments Establish Care Previous pt. Of dr. Young at [facility]. Think he may have a seizure or stoke. Went to [facility] for 5 week. ([facility] in [place]) Diarrhea X 2 months. BM is or prashant . Loss of weight . Goes 8 times a day Reason Comments Patient Question Reason Onset Date Comments Surgery Scheduling Coordinator- Other 08/24/2023 Care Coordination Reason Onset Date Comments Surgery Scheduling Coordinator- Other 09/10/2023 Care Coordination Reason Comments Diarrhea Reason Comments Patient Update Reason Onset Date Comments Surgery Scheduling Coordinator Chronic Care 09/15/2023 Care Coordination Reason Comments [...] ABD & PELVIS W/O CONTRAST Marianna Wagner, 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 [address] [place] [address] [place] [address] Referral ID Status Reason Start Date Expiration Date Visits Requested Visits Authorized [id number] Pending Review Patient Cleared - Admin/Chair man/Directo r advise to proceed or did not respond 10/19/2023 11/17/2024 2 2 Reason Comments Refill Request Reason Comments Results Orders Reason Comments New Patient Evaluation Specialty Diagnoses / Procedures Referred By Contac t Referred To Contact Hematology / [facility] DEPARTMENT Diagnoses 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) Medically complex patient Anemia, unspecified type Procedures CONSULT TO HEMATOLOGY OFFICE/OUTPATIENT [facility] 60 MINUTES Marianna Wagner, 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 [address] [place] [address] Jacky Sebastian DO [address] [place] [place] [address] Referral ID Status Reason Start Date Expiration Date V isits Requested Visits Authorized [id number] Closed PCP Requested Referral 10/17/2023 10/16/2024 1 1 Reason Onset Date Comments Refill Request 11/26/2023 Reason Comments denial: [id number] PANCREAS W IVCON Specialty Diagnoses / Procedures Referred By Jonathan moreira Referred To Contact Radiology / RADIO CT SC[facility] Diagnoses Diarrhea, unspecified CT PANCREAS W IVCON Diarrhea, unspecified type [R19.7] Acute pancreatitis, unspecified complication status, unspecified pancreatitis ty... Procedures CT ABDOMEN W/CONTRAST CT WWO ABD2 400 Marianna Wagner, 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 [address] [place] [address] [facility] [address] [place] [address] Referral ID Status Reason Start Date Expiration Date V isits Requested Visits Authorized [id number] Authorized 11/30/2023 12/30/2023 1 1 Specialty Diagnoses / Procedures Referred By Jonathan t Referred To Contact CT IMAGING Diagnoses Diarrhea, unspecified type Acute pancreatitis, unspecified complication status, unspecified pancreatitis type Procedures CT PANCREAS W IVCON CT ABDOMEN W/CONTRAST Marianna Wagner 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 [address] [place] [address] [place] [address] Referral ID Status Reason Start Date Expiration Date V isits Requested Visits Authorized [id number] Closed Auto-Generate d Referral 11/30/2023 12/30/2023 1 1 Reason Comments Anemia Diarrhea and blood i n the stool Specialty Diagnoses / Procedures Referred By Jonathan t Referred To Contact [facility] Diagnoses Chronic diarrhea Weight loss Procedures CONSULT TO GASTROENTEROLOGY OFFICE/OUTPATIENT NEW HIGH MDM 60 MINUTES Marianna Wagner APRN.HIGH SCHOOL HISTORY TE[employer]ER [address] [place] [address] [facility] [address] [place] [address] Referral ID Status Reason Start Date Expiration Date V isits Requested Visits Authorized [id number] Closed PCP Requested Referral 08/09/2023 08/08/2024 1 [...] Onset Date Comments Transition Of Care 07/17/2024 Andres D/C Reason Onset Date Comments Transition Of Care 07/11/2024 TCM f/u Reason Comments TAVR Schedule Reason Comments TAVR Meeting FOR RECORDS PERTAINING TO PATIENTS WHO ARE [...] BE BASED ON THE PRIMARY CLINICAL RECORDS. [employer] provides no warranty or guarantee of the accuracy or completeness of information in this document.
--- NOTE | 2025-01-20 14:21 | ED.RN ---
poor historian, unable to recall home meds
[2025-01-20 14:42] VITALS: BP 144/73; PULSE 62; RESP 16; TEMP 36.6; O2SAT 100
--- OUTSIDE RECORDS SUMMARY | 2025-01-20 15:14 | XMS RPT_ITS | CCD ---
Author Organization [facility] Care Team Providers Care Government Operations Consultant Name Role Phone BANDAR DAIGLE Unavailable Unavailable [...] Unavailable Andreas Pathak Primary Care Provider ZO LOCAL AREA NETWORK ADMINISTRATOR - ANDREAS BROWN Primary Care Phys ician Zo BUCKET TURNER, BUCKET TURNER-C Andreas Thorne Primary Care Pr ovider Dr. Samantha Singer Emergency Provider Dr. Ashley Alvarado Admit Provider Dr. Arielle Crowe Other Provider Dr. Sonali Smyth Attending Provider Dr. Arielle Crowe Attending Provider Zo BUCKET TURNER, BUCKET TURNER-C Andreas Thorne Primary Care Pr ovider Dr. Trung Bob Attending Provider Dr. Ashley Alvarado Referring Provider [phone] Dr. Chris Call Emergency Provider [phone] Lucas Frausto Admit Provider Dr. Lucas Frausto Attending Provider Dr. Lucas Frausto Other Provider Dr. Refugio Rojas Attending Provider Dr. Refugio Rojas Other Provider Barton BUCKET TURNER, BUCKET TURNER-C Andreas Thorne Primary Care Pr ovider Zo BUCKET TURNER, BUCKET TURNER-C Andreas Thorne Referring Provi mary lou Yun West Attending Provider Unavailable Zo BUCKET TURNER, BUCKET TURNER-C Andreas Thorne Primary Care Pr ovider Dr. Jacky Bey Attending Provider [phone] Jacky Bey Referring Provider [phone] Samantha Singer Emergency Provider Dr. Valeriy Connell Admit Provider Dr. Valeriy Connell Attending Provider Dr. Valeriy Connell Other Provider Zo BUCKET TURNER, BUCKET TURNER-C Andreas Thorne Primary Care Pr ovider Dr. [...] Unavailable Dr. Vinh Lomeli Emergency Provider Zo BUCKET TURNER, BUCKET TURNER-C Andreas Thorne Primary Care Pr ovider Dr. [...] Rounding Nurse, Geremias Unavailable Unavai lable ZO LOCAL AREA NETWORK ADMINISTRATOR - ACCOUNT SUPPORT ASSOCIATE, ANDREAS Rod Primary Care U navailable ZO LOCAL AREA NETWORK ADMINISTRATOR - ACCOUNT SUPPORT ASSOCIATE, ANDREAS Rod Attending U navailable ZO LOCAL AREA NETWORK ADMINISTRATOR - ACCOUNT SUPPORT ASSOCIATE, ANDREAS Rod Primary Care U navailable ZO LOCAL AREA NETWORK ADMINISTRATOR - ACCOUNT SUPPORT ASSOCIATE, ANDREAS Rod Attending U navailable ZO LOCAL AREA NETWORK ADMINISTRATOR - ACCOUNT SUPPORT ASSOCIATE, ANDREAS Rod Attending U navailable ZO LOCAL AREA NETWORK ADMINISTRATOR - ACCOUNT SUPPORT ASSOCIATE, ANDREAS Rod Primary Care U navailable ZO LOCAL AREA NETWORK ADMINISTRATOR - ACCOUNT SUPPORT ASSOCIATE, ANDREAS Rod Attending U navailable ZO LOCAL AREA NETWORK ADMINISTRATOR - ACCOUNT SUPPORT ASSOCIATE, ANDREAS Rod Primary Care U navailable ZO LOCAL AREA NETWORK ADMINISTRATOR - ACCOUNT SUPPORT ASSOCIATE, ANDREAS Rod Primary Care U navailsuha GROSS MD, DR MENDEZ Attending Unavailable BERNARD FRANCISCO, DR MARIELY Love Admitting Kevin WAGNER MD, DR MARIELY Love Consulting Unavai lable ZO LOCAL AREA NETWORK ADMINISTRATOR - ACCOUNT SUPPORT ASSOCIATE, ANDREAS Rod Primary Care U navailable FRANDY FRANCISCO, DR DUNBAR Attending Unavailable ZO LOCAL AREA NETWORK ADMINISTRATOR - ACCOUNT SUPPORT ASSOCIATE, ANDREAS Rod Primary Care U natalia GROSS MD, DR MENDEZ Attending Unavailable ZO LOCAL AREA NETWORK ADMINISTRATOR - ACCOUNT SUPPORT ASSOCIATE, ANDREAS Rod Primary Care U navailable ZO LOCAL AREA NETWORK ADMINISTRATOR - ACCOUNT SUPPORT ASSOCIATE, ANDREAS Rod Attending U navailable ZO LOCAL AREA NETWORK ADMINISTRATOR - ACCOUNT SUPPORT ASSOCIATE, ANDREAS Rod Attending U navailable ZO LOCAL AREA NETWORK ADMINISTRATOR - ACCOUNT SUPPORT ASSOCIATE, ANDREAS Rod Primary Care U navailable ZO LOCAL AREA NETWORK ADMINISTRATOR - ACCOUNT SUPPORT ASSOCIATE, ANDREAS Rod Primary Care U navailable ZO LOCAL AREA NETWORK ADMINISTRATOR - ACCOUNT SUPPORT ASSOCIATE, ANDREAS Rod Attending U navailable ZO LOCAL AREA NETWORK ADMINISTRATOR - ACCOUNT SUPPORT ASSOCIATE, ANDREAS Rod Attending U navailable ZO LOCAL AREA NETWORK ADMINISTRATOR - ACCOUNT SUPPORT ASSOCIATE, ANDREAS Rod Primary Care U navailable ZO LOCAL AREA NETWORK ADMINISTRATOR - ACCOUNT SUPPORT ASSOCIATE, ANDREAS Rod Primary Care U navailable FROMMELT DO, MAGDALENA Attending Unavailable RIDER DO, DR MERRICK Alvarez Attending Unavailable ZO LOCAL AREA NETWORK ADMINISTRATOR - ACCOUNT SUPPORT ASSOCIATE, ANDREAS Rod Primary Care U navailable Barton BUCKET TURNER, BUCKET TURNER-C Andreas Thorne Primary Care Pr ovider Dr. Trung Bob Attending Provider Le, Dr. Perez Emergency Provider Dr. Lucas Frausto Admit Provider Jett, Dr. Lucas Fan Attending Provider Dr. Lucas Frausto Other Provider Christiano, Dr. Ashley Washington Attending Provider Korjessica, Dr. Ashley Washington Other Provider Zo BUCKET TURNER, BUCKET TURNER-C Andreas Thorne Primary Care Pr ovider Dr. Trung Bob Attending Provider Le, Dr. Perez Emergency Provider Dr. Lucas Frausto Admit Provider Dr. Lucas Frausto Attending Provider Dr. Lucas Frausto Other Provider Christiano, Dr. Ashley Washington Attending Provider Christiano, Dr. Ashley Washington Other Provider Dr. Carlos Augustin Emergency Provider [phone] Dr. Conrado Pro Admit Provider Unavailabl e Pro, Dr. Camp Other Provider Unavailnelson e Dr. Conrado Morel Attending Provider Unavailable Adriel, Dr. Camp Other Provider Unavailable Dr. Trenton Strong Other Provider Dr. Alcides Tucker Other Provider Dr. Aramis [...] Attending Provider Dr. Maya Melo Other Provider [phone] Dr. Refugio Rojas Attending Provider Dr. Refugio Rojas Other Provider Trung Bob MD S Unavailable Queden LOCAL AREA NETWORK ADMINISTRATOR.ACCOUNT SUPPORT ASSOCIATE, Marianna A Primary Care Provider QUEDEN BUCKET TURNER-C, MARIANNA Primary Care Physician QUEDEN BUCKET TURNER-C, MARIANNA Primary Care Unavailable ANN-MARIE DILLON DO Attending Unavailable QUEDEN, MARIANNA A Referring Unavailable QUEDEN, MARIANNA A Primary Care Unavailable QUEDEN, MARIANNA A Primary Care Unavailable LUCAS DELAROSA Attending Unavailable PROVIDER, UNKNOWN Referring Unavailable Care Physician, No Primary Primary Care Provider Unavailable Paulino FRANCISCO, Dr. Nino Attending Provider Nick RILEY, Dr. Gongora Referring Provider Nick RILEY, Dr. Gongora Emergency Provider Queden BUCKET TURNER-C, [facility] Care Provider [phone] de Evelio DO, Dr. Camp Admit Provider Unavail able de Evelio DO, Dr. Camp Attending Provider Unav ailable de Evelio DO, Dr. Camp Other Provider Unavail able Rj RILEY, Dr. Wilhelm Attending Provider [phone] Rj RILEY, Dr. Wilhelm Other Provider Nupur RILEY, Dr. Hardy Attending Provider Care Physician, No Primary Primary Care Provider Unavailable Paulino FRANCISCO, Dr. Nino Attending Provider Nick RILEY, Dr. Gongora Referring [facility] Dr. Gongora Emergency Provider Queden BUCKET TURNER-C, [facility] Care Provider de Evelio DO, Dr. Camp Admit Provider Unavail able de Evelio DO, Dr. Camp Other Provider Unavail able Rj RILEY, Dr. Wilhelm Attending Provider Dr. Melonie De La Rosa DO Other Provider Dr. Antony Espitia DO Attending Provider [place] PointDr. Narendra manrique DO Emergency Provider de Evelio DO, Dr. Camp Attending Provider Unav ailable de Evelio DO, Dr. Camp Referring Provider Unav ailable Margo RILEY, Dr. Perez Attending Provider Tona FRANCISCO, Dr. Groves Other Provider Margo RILEY, Dr. Perez Other Provider Dr. Yaneli Carbone MD Attending Provider [phone] Matias RN, Radha Unavailable [phone] Perez Emergency Provider Rj [...] Provider Dr. Vinh Lomeli MD Emergency Provider [phone] Julito FRANCISCO, Dr. iRco Attending Provider Julito FRANCISCO, Dr. Rico Admit Provider Julito FRANCISCO, Dr. Rico Admit Provider Julito FRANCISCO, Dr. Rico Other Provider Jett FRANCISCO, Dr. Lucas Fan Attending Provider Ligia FRANCISCO, Dr. Kaye Other Provider Caitlin FRANCISCO, Dr. Mcgrath Other Provider Philip FRANCISCO, Dr. Self Other Provider Aguila RILEY, Dr. Reddy Other Provider Claudio FRANCISCO, Dr. Conrado Armenta Other Provider [phone] Gray FRANCISCO, Dr. Carlson Other Provider [phone] Urmila FRANCISCO, Dr. Amor Other Provider Garfield FRANCISCO, Dr. Siddiqui Other Provider [phone] Chari FRANCISCO, Dr. Flower Other Provider Julius FRANCISCO, Dr. Bowers Other Provider [phone] Dr. Suleman Denis MD Other Provider [phone] Jd FRANCISCO, Dr. Garrison Other Provider Carlos Manuel FRANCISCO, Dr. Menjivar Other Provider [facility] giancarlo Fontenot MD, Dr. Beadren Other Provider Brigida FRANCISCO, Dr. Faye Other Provider Junior FRANCISCO, Dr. Garcia Other Provider Ramírez FRANCISCO, Dr. Zayas Other Provider Dr. Wilbert Lozano DO Other Provider Kendra FRANCISCO, Dr. Gary Other Provider [phone] Dr. Vladimir Matson MD Other Provider [phone] Dwight Vora DO Other Provider Nicholas FRANCISCO, Dr. Dobson Other Provider Dar FRANCISCO, Dr. Muñoz Other Provider [phone] Jett FRANCISCO, Dr. Lucas Fan Other Provider Aliya BUCKET TURNER-CBernadette Attending Provider Jett FRANCISCO, Dr. Lucas Fan Referring Provider Aguila RILEY, Dr. Reddy Attending Provider Jakub RILEY, Sigrid Referring Provider Peggy Song Attending Provider Dr. Valeriy Flores DO Emergency Provider Dr. Valeriy Flores DO Attending Provider [phone] Edi BUCKET TURNER-C, Heather Attending Provider Case FRANCISCO, Dr. Ortiz [...] Referring Unavailable Antony Espitia Attending Unavailable Queden BUCKET TURNER, [facility] Primary Care Unavailable Melonie De La Rosa Consulting Unavailable Yaneli Carbone Consulting Unavailable Chris Aragon Consulting Unavailable Yaneli Carbone Attending Unavailable Queden BUCKET TURNER, [facility] Primary Care Unavailable [facility] Primary Care Unavailable Melonie De La Rosa Referring Unavailable Melonie De La Rosa Attending Unavailable Yaneli Carbone Attending Unavailable [facility], [facility] Primary Care Unavailable Mark Ricketts Attending Unavailable Melonie De La Rosa Admitting Unavailable Piper Fontanez Consulting Unavailable Queden BUCKET TURNER, [facility] Primary Care Unavailable Dian Rios Attending Unavailable Conrado Morel Referring Unavailable Melonie De La Rosa Consulting Unavailable Conrado Morel Consulting Unavailable Conrado Morel Attending Unavailable Conrado Pro Consulting Unavailable Conrado Pro Attending Unavailable Conrado Pro Admitting Unavailable Conrado Pro Referring Unavailable Quedevyn BUCKET TURNER, [facility] Primary Care Unavailable Chris Aragon Attending Unavailable Care Physician, No Primary Primary Care Unava ilable Trung Bob Attending Unavailable Lucas Frausto Attending Unavailable [facility], [facility] Primary Care Unavailable Jacky Vila Consulting Unavailable Jacyk Vila Admitting Unavailable Trenton Strong Consulting Unavailable [...] Wilbert Consulting Unavailable Abdirahman Gardner Consulting Unavailable Higbee, Soleyah Consulting Unavailable Fernstrom, Dwight Consulting Unavailable Nicholas, Bronson Consulting Unavailable Toni Dodge Consulting Unavailable Lucas Frausto Consulting Unavailable Barry Sheehan Attending Unavailable Lucas Frausto Referring Unavailable Antony Espitia Attending Unavailable [facility] Unavailable Peggy Lima Attending Unavailable Pegyg Lima Referring Unavailable Valeriy Connell Attending Unavailable [facility] Unavailable Diana Willoughby Admitting Unavailable Diana Willoughby [...] Wilbert Consulting Unavailable Abdirahman Gardner Consulting Unavailable Higbee, Soleyah Consulting Unavailable Fernstrom, Dwight Consulting Unavailable Nicholas, Bronson Consulting Unavailable Patty Hendricks Consulting UnavailToni Luz Consulting Unavailable Conrado Pro Consulting Unavailable Conrado Pro Admitting Unavailable Conrado Pro Attending Unavailable Rolan Romero Referring Unavailnelson Wagner BUCKET TURNER, Marianna Primary Care Unavailable Melonie De La Rosa Attending Unavailable Ashley Alvarado Attending Unavailable [facility] Unavailable Diana Willoughby Consulting Unavailable Diana Willoughby [...] Patty Hendricks Consulting UnavailToni Luz Consulting Unavailable [facility], [facility] Primary Care Unavailable [facility], [facility] Referring Unavailable Peggy Lima Attending Unavailable Valeriy Connell Referring Unavailable Suyapa Bustos Attending Unavailable Valeriy Ross Consulting Unavailable Becki Valeriy Consulting Unavailable [facility], [facility] Primary Care Unavailable Jacky Vila Attending Unavailable Bernadette Pisano Attending Unavailable Trung Bob Attending Unavailable Care Physician, No Primary Primary Care Unava ilable [facility] Primary Care Unavailable Trung Bob Attending Unavailable Piper Pearson Attending Unavailable Sonali Smyth Consulting UnavailValeriy Cooley Consulting Unavailable [facility], [facility] Primary Care Unavailable Perez Ribeiro Attending Unavailable Diana Willoughby Attending Unavailable Bernadette Pisano Attending Unavailable Sonali Smyth Attending UnavailValeriy Cooley Attending Unavailable Melonie De La Rosa Admitting Unavailable [facility], [facility] Primary Care Unavailable Piper Fontanez Consulting Unavailable Conrado Morel Attending Unavailable Melonie De La Rosa Consulting Unavailable Conrado Pro Admitting Unavailable Conrado Pro Referring Unavailable Conrado Pro Consulting Unavailable Fátima DAVIS, Marianna Primary Care Unavailable Chris Aragon Attending Unavailable Melonie DeL a Rosa Consulting Unavailable Yaneli Carbone Consulting Unavailable Conrado Pro Consulting Unavailable Conrado rPo Admitting Unavailable Rolan Romero Referring Unavailnelson e Fátima BUCKET TURNER, Marianna Primary Care Unavailable Melonie De La Rosa Attending Unavailable Fátima BUCKET TURNER, Marianna Primary Care Unavailable Melonie De La [...] Flores Attending Unavailable Conrado Morel Attending Unavailable Cornado Morel Consulting Unavailable Jakub VSC, Sigrid Primary [...] preference, # 1 EA, 0 Refill(s), Pharmacy: [facility], 176.5, cm, 05/02/21 11:34:00 EDT, Height, 73.2, kg, 05/02/21 13:04:00 EDT, Dosing Weight Start Date: 05/02/21 Status: Ordered Quantity: 1.0 Unit: EA Repeat number: 1 Start: 05-02-2021 Blood Glucose Test Machine See Instructions, Use as directed Brand type per insurance or patient preference, # 1 EA, 0 Refill(s), Pharmacy: [facility], 176.5, cm, 05/02/21 11:34:00 EDT, Height, 73.2, kg, 05/02/21 13:04:00 EDT, Dosing Weight Start Date: 05/02/21 Status: Ordered Blood-Glucose Meter,Continuo us (FREESTYLE MANGO 3 READER) [facility] (20 sources) Start: 08-29-2023 Blood-Glucose Meter,Continuous (FREESTYLE MANGO 3 READER) [facility] Indications: Type 2 diabetes mellitus with complication, with long-term current use of insulin (HCC) Use to check blood sugar at least four (4) times daily. 1 Each 08/29/2023 Suspended Start: 08-29-2023 Blood-Glucose Meter,Continuous (FREESTYLE MANGO 3 READER) [facility] Indications: Type 2 diabetes mellitus with complication, with long-term current use of insulin (HCC) Use to check blood sugar at least four (4) times daily. 1 Each 08/29/2023 Active Start: 08-29-2023 Blood-Glucose Meter,Continuous (FREESTYLE MANGO 3 READER) [facility] Indications: Type 2 diabetes mellitus with complication, [...] sensors, # 2 EA, 3 Refill(s), Pharmacy: [facility], 176, cm, 03/29/23 13:58:00 EST, Height, 67.6, kg, 03/29/23 13:58:00 EST, Dosing Weight Start Date: 04/28/23 Status: Ordered Quantity: 2.0 Unit: EA Repeat number: 4 Start: 04-28-2023 DME MISCellane ous See Instructions, Libre2 sensors. Use to check blood sugar, replace every 14 days. Dispense #2 sensors, # 2 EA, 3 Refill(s), Pharmacy: [facility], 176, cm, 03/29/23 13:58:00 EST, Height, 67.6, kg, 03/29/23 13:58:00 EST, Dosing Weight Start Date: 04/28/23 Status: Ordered Start: 01-11-2023 DME MISCellane ous See Instructions, Patient needs a refill on Freestyle Mango 2 sensors., # 2 EA, 3 Refill(s), Pharmacy: [facility], 180, cm, 10/15/22 11:38:00 EDT, Height, 66.8, kg, 10/15/22 11:38:00 EDT, Dosing Weight Start Date: 01/11/23 Status: Ordered Quantity: 2.0 Unit: EA Repeat number: 4 Start: 01-11-2023 DME MISCellane ous See Instructions, Patient needs a refill on Freestyle Mango 2 sensors., # 2 EA, 3 Refill(s), Pharmacy: [facility], 180, cm, 10/15/22 11:38:00 EDT, Height, 66.8, kg, 10/15/22 11:38:00 EDT, Dosing Weight Start Date: 01/11/23 Status: Ordered Start: 11-17-2022 DME MISCellane ous See Instructions, Pen needles. Use with Lantus insulin pen for daily injection. dispense #1 box + 11 refills., # 100 EA, 11 Refill(s), Pharmacy: [facility], 180, cm, 10/15/22 11:38:00 EDT, Height, 66.8, kg, 10/15/22 11:38:00 EDT, Dosing Weight Start Date: 11/17/22 Status: Ordered Quantity: 100.0 Unit: EA Repeat number: 12 Start: 11-17-2022 DME MISCellane ous See Instructions, Pen needles. Use with Lantus insulin pen for daily injection. dispense #1 box + 11 refills., # 100 EA, 11 Refill(s), Pharmacy: [facility], 180, cm, 10/15/22 11:38:00 EDT, Height, 66.8, kg, 10/15/22 11:38:00 EDT, Dosing Weight Start Date: 11/17/22 Status: Ordered Start: 09-29-2022 DME MISCellane ous See Instructions, Patient needs a refill on Freestyle Mango 2 sensors., # 2 EA, 3 Refill(s), Pharmacy: [facility], 176, cm, 07/02/22 10:24:00 EDT, Height, 67.7, kg, 07/02/22 10:18:00 EDT, Dosing Weight Start Date: 09/29/22 Status: Ordered Start: 09-10-2022 DME MISCellane ous See Instructions, Freestyle Mango 2 Sensor, # 1 EA, 0 Refill(s), Pharmacy: [facility], 176, cm, 07/02/22 10:24:00 EDT, Height, 67.7, kg, 07/02/22 10:18:00 EDT, Dosing Weight Start Date: 09/10/22 Status: Ordered Quantity: 1.0 Unit: EA Repeat number: 1 Start: 09-10-2022 DME MISCellane ous See Instructions, Freestyle Mango 2 Sensor, # 1 EA, 0 Refill(s), Pharmacy: [facility], 176, cm, 07/02/22 10:24:00 EDT, Height, 67.7, kg, 07/02/22 10:18:00 EDT, Dosing Weight Start Date: 09/10/22 Status: Ordered Start: 08-15-2022 DME MISCellane ous See Instructions, Libre2 reader. Use with sensor to check blood sugar. Dispense #1 reader, 0 refills, # 1 EA, 0 Refill(s), Pharmacy: [facility], 176, cm, 07/02/22 10:24:00 EDT, Height, 67.7 Start Date: 08/15/22 Status: Ordered Quantity: 1.0 Unit: EA Repeat number: 1 Start: 08-15-2022 DME MISCellane ous See Instructions, Libre2 reader. Use with sensor to check blood sugar. Dispense #1 reader, 0 refills, # 1 EA, 0 Refill(s), Pharmacy: [facility], 176, cm, 07/02/22 10:24:00 EDT, Height, 67.7 Start Date: 08/15/22 Status: Ordered Start: 08-15-2022 DME MISCellane ous See Instructions, Libre2 sensors. Use to check blood sugar, replace every 14 days. Dispense #2 sensors with 11 refills, # 1 EA, 0 Refill(s), Pharmacy: [facility], 176, cm, 07/02/22 10:24:00 EDT, Height, 67.7 Start Date: 08/15/22 Status: Ordered Start: 08-15-2022 DME MISCellane ous See Instructions, Pen needles. Use with Lantus insulin pen for daily injection. dispense #1 box + 11 refills., # 1 EA, 0 Refill(s), Pharmacy: [facility], 176, cm, 07/02/22 10:24:00 EDT, Height, 67.7 [...] 7 days. 7 tablet 10/17/2023 10/24/2023 Active Unumey-Pcopaoco-Vqr lase (4 sources) Start: 09-08-2019 take 1 capsule by mouth five times daily Aznnjm-Acydatxs-Lpx lase Active 1 CAP PO 5 TIMES DAILY September 08, 2019 1:14pm Ubbdft-Tqlcjsrt-Sga lase (Creon) 24,000-76,000 -120,000 unit Capsule,Delayed Release(Dr/Ec) (1 source) Start: 06-28-2024 take 87120-70562 capsules by mouth three times daily at mealtime Bzzmok-Onaunejb-Sek lase (Creon) 24,000-76,000 -120,000 unit Capsule,Delayed Release(Dr/Ec) [...] SUGAR, # 100 strip, 11 Refill(s), Pharmacy: [facility] [id number], 180.3, cm, 04/13/19 10:19:00 EST, Height, 81.7, [...] snack, # 450 cap(s), 2 Refill(s), Pharmacy: [facility], Chronic pancreatitis, 180.3, cm, 10/04/20 9:00:00 EDT, Height, kg, 10/04/20 9:00:00 EDT, Dosing Weight Start Date: 10/04/20 Stop Date: 07/01/21 Status: Ordered Pen needles 5 mm (12 sources) Start: 04-09-2022 Pen needles 5 mm See Instructions, qs for 1 month supply, # 1 EA, 0 Refill(s), Pharmacy: [facility], DM type 2, goal HbA1c Start Date: 04/09/22 Status: Ordered Quantity: 1.0 Unit: EA Repeat number: 1 Indication: Type 2 diabetes mellitus without complications Start: 04-09-2022 Pen needles 5 mm See Instructions, qs for 1 month supply, # 1 EA, 0 Refill(s), Pharmacy: [facility], DM type 2, goal HbA1c Start Date: 04/09/22 Status: Ordered Start: 07-05-2020 Pen needles 5 mm See Instructions, qs for 1 month supply, # 1 EA, 11 Refill(s), Pharmacy: [facility], DM type 2, goal HbA1c Start Date: 07/05/20 Status: Ordered polyethylene glycol 3350 448611 mg / potassium chloride 2970 mg / sodium bicarbonate 6740 mg / sodium chloride 5860 mg / sodium sulfate 97176 mg powder for oral solution (1 source) [...] qDay, # 90 tab(s), 1 Refill(s), Pharmacy: [facility], Anemia of chronic disease, 176, [...] Channel [place] Start: 09-08-2019 End: 08-10-2023 amylase 678397 unt / lipase 69650 unt / protease [id number] unt delayed release oral capsule (20 sources) [...] qWeek, # 13 cap(s), 1 Refill(s), Pharmacy: [facility], Vitamin D deficiency, 176, cm, [...] qDay, # 30 tab(s), 5 Refill(s), Pharmacy: [facility], 176.5, cm, 05/15/21 8:40:00 EDT, [...] qHS, # 30 tab(s), 1 Refill(s), Pharmacy: [facility], GERD (gastroesophageal reflux disease), 176, cm, 10/01/22 10:16:00 EDT, Height, kg, 10/01/22 10:16:00 EDT, Dosing Weight Start Date: 10/01/22 Status: Ordered Start: 05-04-2022 End: 06-03-2022 Pepcid 40 mg oral tablet Dos e : 40 mg = 1 tab(s), Oral, qHS, # 30 tab(s), 0 Refill(s), Pharmacy: [facility], Epigastric abdominal pain GERD (gastroesophageal [...] mL, 2 Refill(s), 01/13/22 8:51:00 EST, Pharmacy: [facility], DM type 2, goal HbA1c [...] Coronary atherosclerosis; Translations: [Atherosclerotic heart disease of [place] coronary artery without angina pectoris] Onset: 7 [...] aortic valve replacement with a Bovine Valve [facility] 2016 Hypertension with complications and secondary [...] follow-up 05-21-2022 Episodic Other aftercare (2 sources) 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; Translations: [Type 2 [...] sources) Long-term current use of insulin; Translations: [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] Onset: 7 [...] Facility CASE MANAGEMon 10-27-2024 CASE MANAGEM Normal [facility] CASE MANAGEM Normal [facility] CBC panel Auto (Bld)on 10-27 Erythrocyte distribution width (RBC) [Ratio] 17.0 % High 11.5-15.0 [facility] Comment on above: Order Comment: Speci men Type: BLOOD SPECIMENOrdering Facility: [facility] Address: [address] [place] [address] Performed By: #### 5 [id number] ####[facility] LABCLIA [id number] [place] [address] [place] Hematocrit (Bld) [Volume fraction] 25.6 % Low 39.0-51.0 [facility] Comment on above: Order Comment: Speci men Type: BLOOD SPECIMENOrdering Facility: [facility] Address: [address] [place] [address] Performed By: #### 5 8410-2 ####[facility] LABIA [id number] [place] [address] [place] Hemoglobin (Bld) [Mass/Vol] 7.9 g/dL Low 13.0-17.0 [facility] Comment on above: Order Comment: Speci men Type: BLOOD SPECIMENOrdering Facility: [facility] Address: [address] [place] [address] Performed By: #### 5 8410-2 ####[facility] [id number] [place] [address] [place] MCH (RBC) [Entitic mass] 31.5 pg Normal 26.0-34.0 [facility] Comment on above: Order Comment: Speci men Type: BLOOD SPECIMENOrdering Facility: [facility] Address: [address] [place] [address] Performed By: #### 5 8410-2 ####[facility] [id number] [place] [address] [place] MCHC (RBC) [Mass/Vol] 30.9 g/dL Normal 30.5-36.0 [facility] Comment on above: Order Comment: Speci men Type: BLOOD SPECIMENOrdering Facility: [facility] Address: [address] [place] [address] Performed By: #### 5 8410-2 ####[facility] [id number] [place] [address] [place] MCV (RBC) [Entitic vol] 102.0 fL High 80.0-100.0 [facility] Comment on above: Order Comment: Speci men Type: BLOOD SPECIMENOrdering Facility: [facility] Address: [address] [place] [address] Performed By: #### 5 8410-2 ####[facility] LABCLIA [id number] [place] [address] [place] Nucleated RBC (Bld) [#/Vol] 10*3/uL Normal <0.01 [facility] Comment on above: Order Comment: Speci men Type: BLOOD SPECIMENOrdering Facility: [facility] Address: [address] [place] [address] Performed By: #### 5 8410-2 ####[facility] LABIA [id number] [place] [address] [place] Platelet mean volume (Bld) [Entitic vol] 11.1 fL Normal 9.0-12.7 [facility] Comment on above: Order Comment: Speci men Type: BLOOD SPECIMENOrdering Facility: [facility] Address: [address] [place] [address] Performed By: #### 5 8410-2 ####[facility] LABIA [id number] [place] [address] [place] Platelets (Bld) [#/Vol] 111 10*3/uL Low 150-400 [facility] Comment on above: Order Comment: Speci men Type: BLOOD SPECIMENOrdering Facility: [facility] Address: [address] [place] [address] Result Comment: Resu lts checked and verified.No clot detected. Performed By: #### 5 8410-2 ####[facility] LABCLIA [id number] [place] [address] [place] RBC (Bld) [#/Vol] 2.51 10*6/uL Low 4.20-6.00 [facility] Comment on above: Order Comment: Speci men Type: BLOOD SPECIMENOrdering Facility: [facility] Address: [address] [place] [address] Performed By: #### 5 8410-2 ####[facility] LABCLIA [id number] [address] [address] [place] WBC (Bld) [#/Vol] 6.84 10*3/uL Normal 3.70-11.00 [facility] Comment on above: Order Comment: Speci men Type: BLOOD SPECIMENOrdering Facility: [facility] Address: [address] [place] [address] Performed By: #### 5 8410-2 ####[facility] LABCLIA [id number] [address] [address] [place] CNDSon 10-27-2024 CNDS Normal [facility] Comprehensive metabolic 2000 panelon 10-27-2024 Albumin [Mass/Vol] 2.5 g/dL Low 3.9-4.9 [facility] Comment on above: Order Comment: Speci men Type: BLOOD SPECIMENOrdering Facility: [facility] Address: [address] [place] [address] Performed By: #### 1 9123-9, 54297-1, 2777- ####[facility] LABCLIA [id number] [place] [id number] [place] ALP [Catalytic activity/Vol] 104 U/L Normal 38-113 [facility] Comment on above: Order Comment: Speci men Type: BLOOD SPECIMENOrdering Facility: [facility] Address: [address] [place] [address] Performed By: #### 1 9123-9, 99962-4, 2777-1 ####[facility] LABCLIA [id number] [address] [address] [place] ALT [Catalytic activity/Vol] 15 U/L Normal 10-54 [facility] Comment on above: Order Comment: Speci men Type: BLOOD SPECIMENOrdering Facility: [facility] Address: [address] [place] [address] Performed By: #### 1 9123-9, 48262-3, 2777-1 ####[facility] LABCLIA [id number] [address] [address] [place] Anion gap [Moles/Vol] 12 mmol/L Normal 8-15 [facility] Comment on above: Order Comment: Speci men Type: BLOOD SPECIMENOrdering Facility: [facility] Address: [address] [place] [address] Performed By: #### 1 9123-9, 08321-5, 2777-1 ####[facility] LABCLIA [id number] [place] [id number] [place] AST [Catalytic activity/Vol] 24 U/L Normal 14-40 [facility] Comment on above: Order Comment: Speci men Type: BLOOD SPECIMENOrdering Facility: [facility] Address: [address] [place] [address] Performed By: #### 1 9123-9, 50238-0, 2777-1 ####[facility] LABCLIA [id number] [place] [id number] [place] Bilirubin [Mass/Vol] 0.3 mg/dL Normal 0.2-1.3 [facility] Comment on above: Order Comment: Speci men Type: BLOOD SPECIMENOrdering Facility: [facility] Address: [address] [place] [address] Performed By: #### 1 9123-9, 44537-6, 2777- ####[facility] LABCLIA [id number] [place] [id number] [place] Calcium [Mass/Vol] 8.5 mg/dL Normal 8.5-10.2 [facility] Comment on above: Order Comment: Speci men Type: BLOOD SPECIMENOrdering Facility: [facility] Address: [address] [place] [address] Performed By: #### 1 9123-9, 56127-4, 2777-1 ####[facility] LABCLIA [id number] [place] [address] [place] Chloride [Moles/Vol] 98 mmol/L Normal 98-107 [facility] Comment on above: Order Comment: Speci men Type: BLOOD SPECIMENOrdering Facility: [facility] Address: [address] [place] [address] Performed By: #### 1 9123-9, 63305-8, 2777-1 ####[facility] LABCLIA [id number] [place] [address] [place] CO2 [Moles/Vol] 27 mmol/L Normal 22-30 [facility] Comment on above: Order Comment: Speci men Type: BLOOD SPECIMENOrdering Facility: [facility] Address: [address] [place] [address] Performed By: #### 1 9123-9, 08755-6, 2777-1 ####[facility] LABCLIA [id number] [place] [address] [place] Creatinine [Mass/Vol] 1.09 mg/dL Normal 0.73-1.22 [facility] Comment on above: Order Comment: Speci men Type: BLOOD SPECIMENOrdering Facility: [facility] Address: [address] [place] [address] Performed By: #### 1 9123-9, 87349-9, 2777-1 ####[facility] LABIA [id number] [place] [address] [place] eGFRcr SerPlBld CKD-EPI 2020 77 mL/min/1.73m??? Normal >=60 [facility] Comment on above: Order Comment: Speci men Type: BLOOD SPECIMENOrdering Facility: [facility] Address: [address] [place] [address] Result Comment: Gurwinder mated Glomerular Filtration Rate [...] Performed By: #### 1 23-9, , 2776-02 ####[facility] LABCLIA [id number] [email or web address] [id number], [place] [address] [place] Glucose [Mass/Vol] 92 mg/dL Normal 74-99 [facility] Comment on above: Order Comment: Gini nowak Type: BLOOD SPECIMENOrdering Facility: [facility] Address: [address] [place] [address] Result Comment: The [place] [employer] (ADA) provides guidance for cutoff [...] Standards of Medical Care in Diabetes 2016, [place] [employer]. Diabetes Care. 2016.39(Suppl 1). Performed By: #### 1 23-9, , 2776-02 ####[facility] LABCLIA [id number] [email or web address] [id number], [place] [address] [place] Potassium [Moles/Vol] 5.0 mmol/L Normal 3.7-5.1 [facility] Comment on above: Order Comment: Gini nowak Type: BLOOD SPECIMENOrdering Facility: [facility] Address: [address] [place] [address] Performed By: #### 1 9123-9, , 2776-02 ####[facility] LABCLIA [id number] [id number], [place] [address] [place] Protein [Mass/Vol] 4.9 g/dL Low 6.3-8.0 [facility] Comment on above: Order Comment: Speci men Type: BLOOD SPECIMENOrdering Facility: [facility] Address: [address] [place], [place] [address] Performed By: #### 1 9123-9, 62959-0, 2776- ####[facility] LABCLIA [id number] [place] [id number] [place] Sodium [Moles/Vol] 137 mmol/L Normal 136-144 [facility] Comment on above: Order Comment: Speci men Type: BLOOD SPECIMENOrdering Facility: [facility] Address: [address] [place] [address] Performed By: #### 1 9123-9, 62252-3, 2776-02 ####[facility] LABCLIA [id number] [place] [id number] [place] Urea nitrogen [Mass/Vol] 23 mg/dL Normal 9-24 [facility] Comment on above: Order Comment: Speci men Type: BLOOD SPECIMENOrdering Facility: [facility] Address: [address] [place], [place] [address] Performed By: #### 1 9123-9, 70105-9, 2776-02 ####[facility] LABIA [id number] [address] [address] [place] ECG COMPLETEon 10-27-2024 ECG COMPLETE Normal [facility] Magnesium SerPl-mCncon 10-27 Magnesium [Mass/Vol] 2.3 mg/dL Normal 1.7-2.3 [facility] Comment on above: Order Comment: Speci men Type: BLOOD SPECIMENOrdering Facility: [facility] Address: [address] [place], [place] [address] Performed By: #### 1 9123-9, 09637-4, 2776-02 ####[facility] LABIA [id number] [address] [address] [place] PT EDon 10-27-2024 PT ED Normal [facility] PT panel Coag (PPP)on 2024 INR Coag (PPP) [Relative time] 1.3 {INR} Normal 0.9-1.3 [facility] Comment on above: Order Comment: Gini nowak Type: BLOOD SPECIMENOrdering Facility: [facility] Address: [address] [place] [address] Result Comment: Nettie min K Antagonist (VKA) Therapeutic Range: INR 2 to 3 (Target INR of 2.5)Note: For patients treated with VKA drugs, such as warfarin, the [place] [employer] 2012 Guideline recommends [...] al. Chest 2012, 141:7S-47SNishimura RA, et al. [facility] 2017, 70: 252-289 Performed By: #### 3 4528-0 ####[facility] LABIA [id number] [place] [address] [place] PT Coag (PPP) [Time] 13.5 s High 9.7-13.0 [facility] Comment on above: Order Comment: Gini nowak Type: BLOOD SPECIMENOrdering Facility: [facility] Address: [address] [place] [address] Performed By: #### 3 4528-0 ####[facility] LABIA [id number] [place] [id number] [place] Phosphate SerPl-mCncon 10-27 Phosphate [Mass/Vol] 3.7 mg/dL Normal 2.7-4.8 [facility] Comment on above: Order Comment: Speci men Type: BLOOD SPECIMENOrdering Facility: [facility] Address: [address] [place] [address] Performed By: #### 1 9123-9, 23535-7, 2777-1 ####[facility] LABCLIA [id number] [address] [address] [place] THERAPY NTon 10-27-2024 THERAPY NT Normal [facility] THERAPY NT Normal [facility] XR CHEST 2V FRONTAL/LATon XR CHEST 2V FRONTAL/LAT Normal C [facility] Basic metabolic 2000 panelon 10-26-2024 Anion gap [Moles/Vol] 9 mmol/L Normal 8-15 [facility] Comment on above: Order Comment: Speci men Type: BLOOD SPECIMENOrdering Facility: [facility] Address: [address] [place] [address] Performed By: #### 2 4321-2 ####[facility] LABCLIA [id number] [address] [address] [place] Calcium [Mass/Vol] 8.4 mg/dL Low 8.5-10.2 [facility] Comment on above: Order Comment: Speci men Type: BLOOD SPECIMENOrdering Facility: [facility] Address: [address] [place] [address] Performed By: #### 2 4321-2 ####[facility] LABCLIA [id number] [address] [address] [place] Chloride [Moles/Vol] 99 mmol/L Normal 98-107 [facility] Comment on above: Order Comment: Speci men Type: BLOOD SPECIMENOrdering Facility: [facility] Address: [address] [place] [address] Performed By: #### 2 4321-2 ####[facility] LABCLIA [id number] [place] [id number] [place] CO2 [Moles/Vol] 25 mmol/L Normal 22-30 [facility] Comment on above: Order Comment: Speci men Type: BLOOD SPECIMENOrdering Facility: [facility] Address: [address] [place] [address] Performed By: #### 2 4321-2 ####[facility] LABCLIA [id number] [facility] [place] [id number] [place] Creatinine [Mass/Vol] 1.16 mg/dL Normal 0.73-1.22 [facility] Comment on above: Order Comment: Speci men Type: BLOOD SPECIMENOrdering Facility: [facility] Address: [address] [place] [address] Performed By: #### 2 4321-2 ####[facility] LABCLIA [id number] [place] [address] [place] eGFRcr SerPlBld CKD-EPI 2020 71 mL/min/1.73m??? Normal >=60 [facility] Comment on above: Order Comment: Speci men Type: BLOOD SPECIMENOrdering Facility: [facility] Address: [address] [place] [address] Result Comment: Gurwinder mated Glomerular Filtration Rate [...] actual GFR. Performed By: #### 2 4321-2 ####[facility] LABIA [id number] [place] [id number] [place] Glucose [Mass/Vol] 142 mg/dL High 74-99 [facility] Comment on above: Order Comment: Speci men Type: BLOOD SPECIMENOrdering Facility: [facility] Address: [address] [place] [address] Result Comment: The [place] [employer] (ADA) provides guidance for cutoff [...] Standards of Medical Care in Diabetes 2016, [place] [employer]. Diabetes Care. 2016.39(Suppl 1). Performed By: #### 2 4321-2 ####[facility] LABCLIA [id number] [place] [address] [place] Potassium [Moles/Vol] 5.2 mmol/L High 3.7-5.1 [facility] Comment on above: Order Comment: Speci men Type: BLOOD SPECIMENOrdering Facility: [facility] Address: [address] [place] [address] Performed By: #### 2 4321-2 ####[facility] LABIA [id number] [place] [id number] [place] Sodium [Moles/Vol] 133 mmol/L Low 136-144 [facility] Comment on above: Order Comment: Speci men Type: BLOOD SPECIMENOrdering Facility: [facility] Address: [address] [place] [address] Performed By: #### 2 4321-2 ####[facility] LABIA [id number] [place] [id number] [place] Urea nitrogen [Mass/Vol] 21 mg/dL Normal 9-24 [facility] Comment on above: Order Comment: Speci men Type: BLOOD SPECIMENOrdering Facility: [facility] Address: [address] [place] [address] Performed By: #### 2 4321-2 ####[facility] LABIA [id number] [address] [address] [place] Anion gap [Moles/Vol] 8 mmol/L Normal 8-15 [facility] Comment on above: Order Comment: Speci men Type: BLOOD SPECIMENOrdering Facility: [facility] Address: [address] [place] [address] Performed By: #### 2 4321-2 ####[facility] LABCLIA [id number] [place] [id number] [place] Calcium [Mass/Vol] 8.5 mg/dL Normal 8.5-10.2 [facility] Comment on above: Order Comment: Speci men Type: BLOOD SPECIMENOrdering Facility: [facility] Address: [address] [place] [address] Performed By: #### 2 4321-2 ####[facility] LABCLIA [id number] [place] [address] [place] Chloride [Moles/Vol] 100 mmol/L Normal 98-107 [facility] Comment on above: Order Comment: Speci men Type: BLOOD SPECIMENOrdering Facility: [facility] Address: [address] [place] [address] Performed By: #### 2 4321-2 ####[facility] LABCLIA [id number] [place] [id number] [place] CO2 [Moles/Vol] 26 mmol/L Normal 22-30 [facility] Comment on above: Order Comment: Speci men Type: BLOOD SPECIMENOrdering Facility: [facility] Address: [address] [place] [address] Performed By: #### 2 4321-2 ####[facility] LABCLIA [id number] [place] [id number] [place] Creatinine [Mass/Vol] 1.16 mg/dL Normal 0.73-1.22 [facility] Comment on above: Order Comment: Speci men Type: BLOOD SPECIMENOrdering Facility: [facility] Address: [address] [place] [address] Performed By: #### 2 4321-2 ####[facility] LABCLIA [id number] [place] [address] [place] eGFRcr SerPlBld CKD-EPI 2020 71 mL/min/1.73m??? Normal >=60 [facility] Comment on above: Order Comment: Gini nowak Type: BLOOD SPECIMENOrdering Facility: [facility] Address: [address] [place] [address] Result Comment: Gurwinder mated Glomerular Filtration Rate [...] actual GFR. Performed By: #### 2 4321-2 ####[facility] LABCLIA [id number] [place] [address] [place] Glucose [Mass/Vol] 187 mg/dL High 74-99 [facility] Comment on above: Order Comment: Gini nowak Type: BLOOD SPECIMENOrdering Facility: [facility] Address: [address] [place] [address] Result Comment: The [place] [employer] (ADA) provides guidance for cutoff [...] Standards of Medical Care in Diabetes 2016, [place] [employer]. Diabetes Care. 2016.39(Suppl 1). Performed By: #### 2 4321-2 ####[facility] LABCLIA [id number] [place] [id number] [place] Potassium [Moles/Vol] 5.7 mmol/L High 3.7-5.1 [facility] Comment on above: Order Comment: Speci men Type: BLOOD SPECIMENOrdering Facility: [facility] Address: [address] [place] [address] Performed By: #### 2 4321-2 ####[facility] LABCLIA [id number] [place] [address] [place] Sodium [Moles/Vol] 134 mmol/L Low 136-144 [facility] Comment on above: Order Comment: Speci men Type: BLOOD SPECIMENOrdering Facility: [facility] Address: [address] [place] [address] Performed By: #### 2 4321-2 ####[facility] LABIA [id number] [place] [address] [place] Urea nitrogen [Mass/Vol] 21 mg/dL Normal 9-24 [facility] Comment on above: Order Comment: Speci men Type: BLOOD SPECIMENOrdering Facility: [facility] Address: [address] [place] [address] Performed By: #### 2 4321-2 ####[facility] LABIA [id number] [place] [address] [place] CBC panel Auto (Bld)on 10-26 Erythrocyte distribution width (RBC) [Ratio] 17.3 % High 11.5-15.0 [facility] Comment on above: Order Comment: Speci men Type: BLOOD SPECIMENOrdering Facility: [facility] Address: [address] [place] [address] Performed By: #### 5 8410-2 ####[facility] LABCLIA [id number] [place] [address] [place] Hematocrit (Bld) [Volume fraction] 24.2 % Low 39.0-51.0 [facility] Comment on above: Order Comment: Speci men Type: BLOOD SPECIMENOrdering Facility: [facility] Address: [address] [place] [address] Performed By: #### 5 8410-2 ####[facility] LABIA [id number] [place] [address] [place] Hemoglobin (Bld) [Mass/Vol] 7.8 g/dL Low 13.0-17.0 [facility] Comment on above: Order Comment: Speci men Type: BLOOD SPECIMENOrdering Facility: [facility] Address: [address] [place] [address] Performed By: #### 5 8410-2 ####[facility] [id number] [place] [address] [place] MCH (RBC) [Entitic mass] 32.8 pg Normal 26.0-34.0 [facility] Comment on above: Order Comment: Speci men Type: BLOOD SPECIMENOrdering Facility: [facility] Address: [address] [place] [address] Performed By: #### 5 8410-2 ####[facility] [id number] [place] [address] [place] MCHC (RBC) [Mass/Vol] 32.2 g/dL Normal 30.5-36.0 [facility] Comment on above: Order Comment: Speci men Type: BLOOD SPECIMENOrdering Facility: [facility] Address: [address] [place] [address] Performed By: #### 5 8410-2 ####[facility]PRO[facility] [id number] [place] [address] [place] MCV (RBC) [Entitic vol] 101.7 fL High 80.0-100.0 [facility] Comment on above: Order Comment: Speci men Type: BLOOD SPECIMENOrdering Facility: [facility] Address: [address] [place] [address] Performed By: #### 5 8410-2 ####[facility] LABCLIA [id number] [place] [address] [place] Nucleated RBC (Bld) [#/Vol] 10*3/uL Normal <0.01 [facility] Comment on above: Order Comment: Speci men Type: BLOOD SPECIMENOrdering Facility: [facility] Address: [address] [place] [address] Performed By: #### 5 8410-2 ####[facility] LABCLIA [id number] [place] [address] [place] Platelet mean volume (Bld) [Entitic vol] 11.7 fL Normal 9.0-12.7 [facility] Comment on above: Order Comment: Speci men Type: BLOOD SPECIMENOrdering Facility: [facility] Address: [address] [place] [address] Performed By: #### 5 8410-2 ####[facility] LABIA [id number] [place] [address] [place] Platelets (Bld) [#/Vol] 103 10*3/uL Low 150-400 [facility] Comment on above: Order Comment: Speci men Type: BLOOD SPECIMENOrdering Facility: [facility] Address: [address] [place] [address] Result Comment: No c lot detected. Performed By: #### 5 8410-2 ####[facility] LABCLIA [id number] [place] [address] [place] RBC (Bld) [#/Vol] 2.38 10*6/uL Low 4.20-6.00 [facility] Comment on above: Order Comment: Speci men Type: BLOOD SPECIMENOrdering Facility: [facility] Address: [address] [place] [address] Performed By: #### 5 8410-2 ####[facility] LABCLIA [id number] [address] [address] [place] WBC (Bld) [#/Vol] 8.82 10*3/uL Normal 3.70-11.00 [facility] Comment on above: Order Comment: Speci men Type: BLOOD SPECIMENOrdering Facility: [facility] Address: [address] [place] [address] Performed By: #### 5 8410-2 ####[facility] LABCLIA [id number] [address] [address] [place] CONSULTon 10-26-2024 CONSULT Normal [facility] metabolic 2000 panelon 10-26-2024 Albumin [Mass/Vol] 2.5 g/dL Low 3.9-4.9 [facility] Comment on above: Order Comment: Speci men Type: BLOOD SPECIMENOrdering Facility: [facility] Address: [address] [place] [address] Performed By: #### 2 4323-8, 2777, ####[facility] LABCLIA [id number] [place] [address] [place] ALP [Catalytic activity/Vol] 110 U/L Normal 38-113 [facility] Comment on above: Order Comment: Speci men Type: BLOOD SPECIMENOrdering Facility: [facility] Address: [address] [place] [address] Performed By: #### 2 4323-8, 2777, ####[facility] LABCLIA [id number] [address] [address] [place] ALT [Catalytic activity/Vol] 13 U/L Normal 10-54 [facility] Comment on above: Order Comment: Speci men Type: BLOOD SPECIMENOrdering Facility: [facility] Address: [address] [place] [address] Performed By: #### 2 4323-8, 2777-, ####[facility] LABCLIA [id number] [address] [place] [address] [place] Anion gap [Moles/Vol] 6 mmol/L Low 8-15 [facility] Comment on above: Order Comment: Speci men Type: BLOOD SPECIMENOrdering Facility: [facility] Address: [address] [place], [place] [address] Performed By: #### 2 4323-8, 2777-1, ####[facility] LABCLIA [id number] [address] [address] [place] AST [Catalytic activity/Vol] 23 U/L Normal 14-40 [facility] Comment on above: Order Comment: Speci men Type: BLOOD SPECIMENOrdering Facility: [facility] Address: [address] [place], [place] [address] Performed By: #### 2 4323-8, 2777, ####[facility] LABCLIA [id number] [place] [address] [place] Bilirubin [Mass/Vol] 0.3 mg/dL Normal 0.2-1.3 [facility] Comment on above: Order Comment: Speci men Type: BLOOD SPECIMENOrdering Facility: [facility] Address: [address] [place], [place] [address] Performed By: #### 2 4323-8, 2777, ####[facility] LABCLIA [id number] [address] [address] [place] Calcium [Mass/Vol] 8.3 mg/dL Low 8.5-10.2 [facility] Comment on above: Order Comment: Speci men Type: BLOOD SPECIMENOrdering Facility: [facility] Address: [address] [place], [place] [address] Performed By: #### 2 4323-8, 27771, ####[facility] LABCLIA [id number] [address] [address] [place] Chloride [Moles/Vol] 101 mmol/L Normal 98-107 [facility] Comment on above: Order Comment: Speci men Type: BLOOD SPECIMENOrdering Facility: [facility] Address: [address] [place], [place] [address] Performed By: #### 2 4323-8, 2777-1, 95761-9 ####[facility] LABCLIA [id number] [place] [address] [place] CO2 [Moles/Vol] 28 mmol/L Normal 22-30 [facility] Comment on above: Order Comment: Speci men Type: BLOOD SPECIMENOrdering Facility: [facility] Address: [address] [place] [address] Performed By: #### 2 4323-8, 2777-1, 65803-9 ####[facility] LABCLIA [id number] [place] [address] [place] Creatinine [Mass/Vol] 1.04 mg/dL Normal 0.73-1.22 [facility] Comment on above: Order Comment: Speci men Type: BLOOD SPECIMENOrdering Facility: [facility] Address: [address] [place] [address] Performed By: #### 2 4323-8, 2777-1, 52973-0 ####[facility] LABIA [id number] [place] [address] [place] eGFRcr SerPlBld CKD-EPI 2020 81 mL/min/1.73m??? Normal >=60 [facility] Comment on above: Order Comment: Speci men Type: BLOOD SPECIMENOrdering Facility: [facility] Address: [address] [place], [place] [address] Result Comment: Gurwinder mated Glomerular Filtration Rate [...] GFR. Performed By: #### 2 4323-8, 2776-02, ####[facility] LABCLIA [id number] [facility] [id number] [place] [address] [place] Glucose [Mass/Vol] 129 mg/dL High 74-99 [facility] Comment on above: Order Comment: Speci men Type: BLOOD SPECIMENOrdering Facility: [facility] Address: [address] [place] [address] Result Comment: The [place] Diabetes Association (ADA) provides guidance for cutoff [...] Standards of Medical Care in Diabetes 2016, [place] [employer]. Diabetes Care. 2016.39(Suppl 1). Performed By: #### 2 4323-8, 2776-02, ####[facility] LABCLIA [id number] [facility] [address] [address] [place] Potassium [Moles/Vol] 5.5 mmol/L High 3.7-5.1 [facility] Comment on above: Order Comment: Speci men Type: BLOOD SPECIMENOrdering Facility: [facility] Address: [address] [place] [address] Performed By: #### 2 4323-8, 2776-02, ####[facility] LABCLIA [id number] [address] [facility] AV[facility] [place] [address] [place] Protein [Mass/Vol] 4.7 g/dL Low 6.3-8.0 [facility] Comment on above: Order Comment: Speci men Type: BLOOD SPECIMENOrdering Facility: [facility] Address: [address] [place] [address] Performed By: #### 2 4323-8, 2776-02, ####[facility] LABCLIA [id number] [place] [id number] [place] Sodium [Moles/Vol] 135 mmol/L Low 136-144 [facility] Comment on above: Order Comment: Speci men Type: BLOOD SPECIMENOrdering Facility: [facility] Address: [address] [place] [address] Performed By: #### 2 4323-8, 2776-02, ####[facility] LABIA [id number] [place] [id number] [place] Urea nitrogen [Mass/Vol] 21 mg/dL Normal 9-24 [facility] Comment on above: Order Comment: Speci men Type: BLOOD SPECIMENOrdering Facility: [facility] Address: [address] [place] [address] Performed By: #### 2 4323-8, 2776-02, ####[facility] LABIA [id number] [place] [id number] [place] ECG COMPLETEon 10-26-2024 ECG COMPLETE Normal [facility] Fact Xa PPP-aCncon Coagulation factor X activated act Coag Qn (PPP) <0.10 Normal <0.10 [facility] Comment on above: Order Comment: Speci men Type: BLOOD SPECIMENOrdering Facility: [facility] Address: [address] [place] [address] Result Comment: The recommended therapeutic range for treatment of venous and arterial thrombosis with intravenous unfractionated heparin is an anti Xa activity level of 0.3 to 0.7 IU/mL. In patients with concomitant therapy with thrombolytic agents and/or platelet glycoprotein IIb/IIIa antagonists, the recommended therapeutic range is an anti Xa activity level of 0.2 to 0.5 IU/mL. Performed By: #### 3 217-7, 70699-9 ####[facility] LABIA [id number] [place] [id number] [place] Magnesium SerPl-mCncon 10-26 Magnesium [Mass/Vol] 2.3 mg/dL Normal 1.7-2.3 [facility] Comment on above: Order Comment: Specsonja nowak Type: BLOOD SPECIMENOrdering Facility: [facility] Address: [address] [place] [address] Performed By: #### 2 4323-8, 2777-1, 68754-8 ####[facility] [id number] [address] STATES OF [facility] PT EDon 10-26-2024 PT ED Normal [facility] PT panel Coag (PPP)on 2024 INR Coag (PPP) [Relative time] 1.2 {INR} Normal 0.9-1.3 [facility] Comment on above: Order Comment: Gini nowak Type: BLOOD SPECIMENOrdering Facility: [facility] Address: [address] [place] [address] Result Comment: Nettie min K Antagonist (VKA) Therapeutic Range: INR 2 to 3 (Target INR of 2.5)Note: For patients treated with VKA drugs, such as warfarin, the [place] [employer] 2012 Guideline recommends [...] 70: 252-289 Performed By: #### 3 217-7, 64016-3 ####[facility] LABIA [id number] [address] [address] [place] PT Coag (PPP) [Time] 13.3 s High 9.7-13.0 [facility] Comment on above: Order Comment: Speci men Type: BLOOD SPECIMENOrdering Facility: [facility] Address: [address] [place] [address] Performed By: #### 3 217-7, 84107-9 ####[facility] [id number] [place] [id number] [place] Phosphate SerPl-mCncon 10-26 Phosphate [Mass/Vol] 2.7 mg/dL Normal 2.7-4.8 [facility] Comment on above: Order Comment: Speci men Type: BLOOD SPECIMENOrdering Facility: [facility] Address: [address] [place] [address] Performed By: #### 2 4323-8, 2777-1, 31533-5 ####[facility] [id number] [place] [address] [place] THERAPY NTon 10-26-2024 THERAPY NT Normal [facility] THERAPY NT Normal [facility] URINALYSIS, DIPSTICK ONLYon 10-26-2024 Bilirubin Ql (U) Negative Normal Negative [facility] Comment on above: Order Comment: Speci men Type: URINE SPECIMENOrdering Facility: [facility] Address: [address] [place] [address] Performed By: #### U A ####[facility] [id number] [place] [address] [place] Clarity (Unsp spec) Clear Normal Clear [facility] Comment on above: Order Comment: Speci men Type: URINE SPECIMENOrdering Facility: [facility] Address: [address] [place], [place] [address] Performed By: #### U A ####[facility] LABCLIA [id number] [address], [facility]95 [place] Color (U) Yellow Normal Yellow [facility] Comment on above: Order Comment: Speci men Type: URINE SPECIMENOrdering Facility: [facility] Address: [address] [place] [address] Performed By: #### U A ####[facility] LABCLIA [id number] [address], [facility]95 [place] Glucose Test strip (U) [Mass/Vol] Negative Normal Negative [facility] Comment on above: Order Comment: Speci men Type: URINE SPECIMENOrdering Facility: [facility] Address: [address] [place] [address] Performed By: #### U A ####[facility] LABCLIA [id number] [address], [place] [address] [place] Hemoglobin Ql (U) Negative Normal Negative [facility] Comment on above: Order Comment: Speci men Type: URINE SPECIMENOrdering Facility: [facility] Address: [address] [place] [address] Performed By: #### U A ####[facility] LABCLIA [id number] [place] [id number] [place] Ketones Ql (U) Negative Normal Negative [facility] Comment on above: Order Comment: Speci men Type: URINE SPECIMENOrdering Facility: [facility] Address: [address] [place] [address] Performed By: #### U A ####[facility] LABCLIA [id number] [place] [id number] [place] Leukocyte esterase Test strip Ql (U) Negative Normal Negative [facility] Comment on above: Order Comment: Speci men Type: URINE SPECIMENOrdering Facility: [facility] Address: [address] [place] [address] Performed By: #### U A ####[facility] LABCLIA [id number] [place] [address] [place] Nitrite Ql (U) Negative Normal Negative [facility] Comment on above: Order Comment: Speci men Type: URINE SPECIMENOrdering Facility: [facility] Address: [address] [place] [address] Performed By: #### U A ####[facility] LABCLIA [id number] [place] [address] [place] pH (U) 7.0 [pH] Normal 5.0-8.0 [facility] Comment on above: Order Comment: Speci men Type: URINE SPECIMENOrdering Facility: [facility] Address: [address] [place] [address] Performed By: #### U A ####[facility] LABIA [id number] [place] [address] [place] Protein (U) [Mass/Vol] Negative Normal Negative [facility] Comment on above: Order Comment: Speci men Type: URINE SPECIMENOrdering Facility: [facility] Address: [address] [place] [address] Performed By: #### U A ####[facility] LABIA [id number] [place] [address] [place] Specific gravity (U) [Rel density] 1.012 Normal 1.005-1.030 [facility] Comment on above: Order Comment: Speci men Type: URINE SPECIMENOrdering Facility: [facility] Address: [address] [place] [address] Performed By: #### U A ####[facility] LABIA [id number] [place] [address] [place] Urobilinogen Ql (U) 0.2 EU/dL Normal 0.2-1.0 EU/dL [facility] Comment on above: Order Comment: Speci men Type: URINE SPECIMENOrdering Facility: [facility] Address: [address] [place] [address] Performed By: #### U A ####[facility] LABCLIA [id number] [place] [id number] [place] XR CHEST 1V FRONTAL PORTon 0 10-26-2024 XR CHEST 1V FRONTAL PORT Normal [facility] CASE MANAGEMon 10-25-2024 CASE MANAGEM Normal [facility] CBC panel Auto (Bld)on 10-25 Erythrocyte distribution width (RBC) [Ratio] 17.4 % High 11.5-15.0 [facility] Comment on above: Order Comment: Speci men Type: BLOOD SPECIMENOrdering Facility: [facility] Address: [address] [place] [address] Performed By: #### 5 8410-2 ####[facility] LABCLIA [id number] [place] [address] [place] Hematocrit (Bld) [Volume fraction] 22.5 % Low 39.0-51.0 [facility] Comment on above: Order Comment: Speci men Type: BLOOD SPECIMENOrdering Facility: [facility] Address: [address] [place] [address] Performed By: #### 5 8410-2 ####[facility] LABCLIA [id number] [place] [id number] [place] Hemoglobin (Bld) [Mass/Vol] 7.2 g/dL Low 13.0-17.0 [facility] Comment on above: Order Comment: Speci men Type: BLOOD SPECIMENOrdering Facility: [facility] Address: [address] [place] [address] Performed By: #### 5 8410-2 ####[facility] LABCLIA [id number] [place] [id number] [place] MCH (RBC) [Entitic mass] 32.3 pg Normal 26.0-34.0 [facility] Comment on above: Order Comment: Speci men Type: BLOOD SPECIMENOrdering Facility: [facility] Address: [address] [place] [address] Performed By: #### 5 8410-2 ####[facility] LABIA [id number] [place] [address] [place] MCHC (RBC) [Mass/Vol] 32.0 g/dL Normal 30.5-36.0 [facility] Comment on above: Order Comment: Speci men Type: BLOOD SPECIMENOrdering Facility: [facility] Address: [address] [place] [address] Performed By: #### 5 8410-2 ####[facility] LABIA [id number] [place] [address] [place] MCV (RBC) [Entitic vol] 100.9 fL High 80.0-100.0 [facility] Comment on above: Order Comment: Speci men Type: BLOOD SPECIMENOrdering Facility: [facility] Address: [address] [place] [address] Performed By: #### 5 8410-2 ####[facility] LABIA [id number] [place] [address] [place] Nucleated RBC (Bld) [#/Vol] 10*3/uL Normal <0.01 [facility] Comment on above: Order Comment: Speci men Type: BLOOD SPECIMENOrdering Facility: [facility] Address: [address] [place] [address] Performed By: #### 5 8410-2 ####[facility] LABIA [id number] [place] [address] [place] Platelet mean volume (Bld) [Entitic vol] 12.4 fL Normal 9.0-12.7 [facility] Comment on above: Order Comment: Speci men Type: BLOOD SPECIMENOrdering Facility: [facility] Address: [address] [place] [address] Performed By: #### 5 8410-2 ####[facility] LABCLIA [id number] [address] [address] [place] Platelets (Bld) [#/Vol] 90 10*3/uL Low 150-400 [facility] Comment on above: Order Comment: Speci men Type: BLOOD SPECIMENOrdering Facility: [facility] Address: [address] [place] [address] Performed By: #### 5 8410-2 ####[facility] LABIA [id number] [place] [id number] [place] RBC (Bld) [#/Vol] 2.23 10*6/uL Low 4.20-6.00 [facility] Comment on above: Order Comment: Speci men Type: BLOOD SPECIMENOrdering Facility: [facility] Address: [address] [place] [address] Performed By: #### 5 8410-2 ####[facility] LABIA [id number] [place] [id number] [place] WBC (Bld) [#/Vol] 5.94 10*3/uL Normal 3.70-11.00 [facility] Comment on above: Order Comment: Speci men Type: BLOOD SPECIMENOrdering Facility: [facility] Address: [address] [place] [address] Performed By: #### 5 8410-2 ####[facility] LABIA [id number] [place] [id number] [facility] Comprehensive metabolic 2000 panelon 10-25-2024 Albumin [Mass/Vol] 2.3 g/dL Low 3.9-4.9 [facility] Comment on above: Order Comment: Speci men Type: BLOOD SPECIMENOrdering Facility: [facility] Address: [address] [place] [address] Performed By: #### 2 4323-8, 2777-1, 34224-7 ####[facility] LABCLIA [id number] [address] [place] [address] [place] ALP [Catalytic activity/Vol] 100 U/L Normal 38-113 [facility] Comment on above: Order Comment: Speci men Type: BLOOD SPECIMENOrdering Facility: [facility] Address: [address] [place] [address] Performed By: #### 2 4323-8, 27708-08, ####[facility] LABCLIA [id number] [address] [place] [address] [place] ALT [Catalytic activity/Vol] 14 U/L Normal 10-54 [facility] Comment on above: Order Comment: Speci men Type: BLOOD SPECIMENOrdering Facility: [facility] Address: [address] [place] [address] Performed By: #### 2 4323-8, 27708-08, ####[facility] LABCLIA [id number] [address] [place] [address] [place] Anion gap [Moles/Vol] 8 mmol/L Normal 8-15 [facility] Comment on above: Order Comment: Speci men Type: BLOOD SPECIMENOrdering Facility: [facility] Address: [address] [place] [address] Performed By: #### 2 4323-8, 27708-08, ####[facility] LABCLIA [id number] [address] [place] [address] [place] AST [Catalytic activity/Vol] 26 U/L Normal 14-40 [facility] Comment on above: Order Comment: Speci men Type: BLOOD SPECIMENOrdering Facility: [facility] Address: [address] [place] [address] Performed By: #### 2 4323-8, 27708-08, ####[facility] LABCLIA [id number] [address] [place] [address] [place] Bilirubin [Mass/Vol] 0.2 mg/dL Normal 0.2-1.3 [facility] Comment on above: Order Comment: Speci men Type: BLOOD SPECIMENOrdering Facility: [facility] Address: [address] [place] [address] Performed By: #### 2 4323-8, 2776-02, ####[facility] LABCLIA [id number] [place] [address] [place] Calcium [Mass/Vol] 8.0 mg/dL Low 8.5-10.2 [facility] Comment on above: Order Comment: Speci men Type: BLOOD SPECIMENOrdering Facility: [facility] Address: [address] [place] [address] Performed By: #### 2 4323-8, 2776-02, ####[facility] LABCLIA [id number] [place] [address] [place] Chloride [Moles/Vol] 100 mmol/L Normal 98-107 [facility] Comment on above: Order Comment: Speci men Type: BLOOD SPECIMENOrdering Facility: [facility] Address: [address] [place] [address] Performed By: #### 2 4323-8, 2776-02, ####[facility] LABCLIA [id number] [place] [id number] [place] CO2 [Moles/Vol] 26 mmol/L Normal 22-30 [facility] Comment on above: Order Comment: Speci men Type: BLOOD SPECIMENOrdering Facility: [facility] Address: [address] [place] [address] Performed By: #### 2 4323-8, 2776-02, ####[facility] LABCLIA [id number] [place] [id number] [place] Creatinine [Mass/Vol] 1.39 mg/dL High 0.73-1.22 [facility] Comment on above: Order Comment: Gini nowak Type: BLOOD SPECIMENOrdering Facility: [facility] Address: [address] [place], [place] [address] Performed By: #### 2 4323-8, 277-, ####[facility] LABCLIA [id number] [place] [id number] [place] eGFRcr SerPlBld CKD-EPI 2020 57 mL/min/1.73m??? Low >=60 [facility] Comment on above: Order Comment: Gini nowak Type: BLOOD SPECIMENOrdering Facility: [facility] Address: [address] [place] [address] Result Comment: Gurwinder mated Glomerular Filtration Rate [...] GFR. Performed By: #### 2 4323-8, 2776-02, ####[facility] LABCLIA [id number] [place] [id number] [place] Glucose [Mass/Vol] 138 mg/dL High 74-99 [facility] Comment on above: Order Comment: Gini nowak Type: BLOOD SPECIMENOrdering Facility: [facility] Address: [address] [place] [address] Result Comment: The [place] [employer] (ADA) provides guidance for cutoff [...] Standards of Medical Care in Diabetes 2016, [place] [employer]. Diabetes Care. 2016.39(Suppl 1). Performed By: #### 2 4323-8, 2776-02, ####[facility] LABCLIA [id number] [address] [address] [place] Potassium [Moles/Vol] 4.9 mmol/L Normal 3.7-5.1 [facility] Comment on above: Order Comment: Speci men Type: BLOOD SPECIMENOrdering Facility: [facility] Address: [address] [place] [address] Performed By: #### 2 4323-8, 2776-02, ####[facility] LABCLIA [id number] [address] [address] [place] Protein [Mass/Vol] 4.5 g/dL Low 6.3-8.0 [facility] Comment on above: Order Comment: Speci men Type: BLOOD SPECIMENOrdering Facility: [facility] Address: [address] [place] [address] Performed By: #### 2 4323-8, 2776-02, ####[facility] LABCLIA [id number] [address] [address] [place] Sodium [Moles/Vol] 134 mmol/L Low 136-144 [facility] Comment on above: Order Comment: Speci men Type: BLOOD SPECIMENOrdering Facility: [facility] Address: [address] [place] [address] Performed By: #### 2 4323-8, 2776-02, ####[facility] LABCLIA [id number] [address] [address] [place] Urea nitrogen [Mass/Vol] 20 mg/dL Normal 9-24 [facility] Comment on above: Order Comment: Speci men Type: BLOOD SPECIMENOrdering Facility: [facility] Address: [address] [place] [address] Performed By: #### 2 4323-8, 27708-08, ####[facility] LABCLIA [id number] [address] [address] [place] ECG COMPLETEon 10-25-2024 ECG COMPLETE Normal [facility] Magnesium SerPl-mCncon 10-25 Magnesium [Mass/Vol] 2.1 mg/dL Normal 1.7-2.3 [facility] Comment on above: Order Comment: Speci men Type: BLOOD SPECIMENOrdering Facility: [facility] Address: [address] [place] [id number] Performed By: #### 2 4323-8, 27708-08, ####[facility] LABIA [id number] [place] [id number] [place] NURSING PROGon 10-25-2024 NURSING PROG Normal [facility] NURSING PROG Normal [facility] NURSING PROG Normal [facility] Phosphate SerPl-ncon 10-25 Phosphate [Mass/Vol] 2.8 mg/dL Normal 2.7-4.8 [facility] Comment on above: Order Comment: Speci men Type: BLOOD SPECIMENOrdering Facility: [facility] Address: [address] [place] [address] Performed By: #### 2 4323-8, 27708-08, ####[facility] LABIA [id number] [address] [address] [place] THERAPY NTon 10-25-2024 THERAPY NT Normal [facility] THERAPY NT Normal [facility] XR CHEST 1V FRONTAL PORTon 0 10-25-2024 XR CHEST 1V FRONTAL PORT Normal [facility] XR CHEST 1V FRONTAL PORT Normal [facility] ARTERIAL BLOOD GASESon 10-24 Base excess Calc (Bld) [Moles/Vol] 4 mmol/L High 0-2 [facility] Comment on above: Order Comment: Speci men Type: ARTERIAL BLOOD SPECIMENOrdering Facility: [facility] Address: [address] [place] [address] Performed By: #### A LLBG ####[facility] LABIA [id number] [place] [address] [place] Body temperature 99.14 [degF] Normal [facility] Comment on above: Order Comment: Speci men Type: ARTERIAL BLOOD SPECIMENOrdering Facility: [facility] Address: [address] [place] [address] Performed By: #### A LLBG ####[facility] LABIA [id number] [place] [address] [place] Calcium.ionized (Bld) [Mass/Vol] 1.17 mmol/L Normal 1.08-1.30 [facility] Comment on above: Order Comment: Speci men Type: ARTERIAL BLOOD SPECIMENOrdering Facility: [facility] Address: [address] [place] [address] Performed By: #### A LLBG ####[facility] [id number] [place] [address] [place] Calcium.ionized adjusted to pH 7.4 (BldA) [Moles/Vol] 1.16 mmol/L Normal 1.08-1.30 [facility] Comment on above: Order Comment: Speci men Type: ARTERIAL BLOOD SPECIMENOrdering Facility: [facility] Address: [address] [place] [address] Performed By: #### A LLBG ####[facility] [id number] [place] [address] [place] Carboxyhemoglobin (BldA) [Mass fraction] 1.0 % Normal 0.0-2.0 [facility] Comment on above: Order Comment: Speci men Type: ARTERIAL BLOOD SPECIMENOrdering Facility: [facility] Address: [address] [place] [address] Result Comment: Carb oxyhemoglobin Reference Range for Smokers: 2.0-8.0% Performed By: #### A LLBG ####[facility] LABCLIA [id number] [place] [address] [place] CO2 (Bld) [Partial pressure] 49 mm Hg High 36-46 [facility] Comment on above: Order Comment: Speci men Type: ARTERIAL BLOOD SPECIMENOrdering Facility: [facility] Address: [address] [place] [address] Performed By: #### A LLBG ####[facility] LABCLIA [id number] [address] [place] CO2 adjusted to patient's actual temperature (Bld) [Partial pressure] 49 mmHg High 36-46 [facility] Comment on above: Order Comment: Speci men Type: ARTERIAL BLOOD SPECIMENOrdering Facility: [facility] Address: [address] [place] [address] Performed By: #### A LLBG ####[facility] LABCLIA [id number] [place] [address] [place] Glucose [Mass/Vol] 136 mg/dL High 60-105 [facility] Comment on above: Order Comment: Speci men Type: ARTERIAL BLOOD SPECIMENOrdering Facility: [facility] Address: [address] [place] [address] Performed By: #### A LLBG ####[facility] LABCLIA [id number] [place] [id number] [place] HCO3 (Bld) [Moles/Vol] 29 mmol/L High 22-26 [facility] Comment on above: Order Comment: Speci men Type: ARTERIAL BLOOD SPECIMENOrdering Facility: [facility] Address: [address] [place] [address] Performed By: #### A LLBG ####[facility] LABCLIA [id number] [place] [address] [place] Hematocrit (Bld) [Volume fraction] 22.6 % Low 39.0-51.0 [facility] Comment on above: Order Comment: Speci men Type: ARTERIAL BLOOD SPECIMENOrdering Facility: [facility] Address: [address] [place] [address] Performed By: #### A LLBG ####[facility] LABCLIA [id number] [place] [address] [place] Hemoglobin (Bld) [Mass/Vol] 7.2 g/dL Low 13.0-17.0 [facility] Comment on above: Order Comment: Speci men Type: ARTERIAL BLOOD SPECIMENOrdering Facility: [facility] Address: [address] [place] [address] Performed By: #### A LLBG ####[facility] LABCLIA [id number] [place] [address] [place] Lactate [Moles/Vol] 1.1 mmol/L Normal 0.5-2.2 [facility] Comment on above: Order Comment: Speci men Type: ARTERIAL BLOOD SPECIMENOrdering Facility: [facility] Address: [address] [place] [address] Performed By: #### A LLBG ####[facility] LABCLIA [id number] [place] [address] [place] LITERS 3 Liters/min Normal [facility] Comment on above: Order Comment: Speci men Type: ARTERIAL BLOOD SPECIMENOrdering Facility: [facility] Address: [address] [place] [address] Performed By: #### A LLBG ####[facility] LABCLIA [id number] [place] [address] [place] Methemoglobin (Bld) [Mass fraction] 1.5 % Normal 0.0-1.5 [facility] Comment on above: Order Comment: Speci men Type: ARTERIAL BLOOD SPECIMENOrdering Facility: [facility] Address: [address] [place] [address] Performed By: #### A LLBG ####[facility] LABCLIA [id number] [place] [id number] [place] O2 THERAPY NC = Nasal Cannula Normal [facility] Comment on above: Order Comment: Speci men Type: ARTERIAL BLOOD SPECIMENOrdering Facility: [facility] Address: [address] [place] [address] Performed By: #### A LLBG ####[facility] LABCLIA [id number] [address] [address] [place] Oxygen (Bld) [Partial pressure] 143 mm Hg High 85-95 [facility] Comment on above: Order Comment: Speci men Type: ARTERIAL BLOOD SPECIMENOrdering Facility: [facility] Address: [address] [place] [address] Performed By: #### A LLBG ####[facility] LABCLIA [id number] [place] [id number] [place] Oxygen adjusted to patient's actual temperature (Bld) [Partial pressure] 145 mmHg High 85-95 [facility] Comment on above: Order Comment: Speci men Type: ARTERIAL BLOOD SPECIMENOrdering Facility: [facility] Address: [address] [place] [address] Performed By: #### A LLBG ####[facility] LABCLIA [id number] [place] [id number] [place] Oxyhemoglobin (BldA) [Mass fraction] 97 % Normal 95-98 [facility] Comment on above: Order Comment: Speci men Type: ARTERIAL BLOOD SPECIMENOrdering Facility: [facility] Address: [address] [place] [address] Performed By: #### A LLBG ####[facility] LABCLIA [id number] [address] [address] [place] pH (Bld) 7.39 [pH] Normal 7.35-7.45 [facility] Comment on above: Order Comment: Speci men Type: ARTERIAL BLOOD SPECIMENOrdering Facility: [facility] Address: [address] [place] [address] Performed By: #### A LLBG ####[facility] LABCLIA [id number] [address] [address] [place] pH adjusted to patient's actual temperature (Bld) 7.39 Normal 7.35-7.45 [facility] Comment on above: Order Comment: Speci men Type: ARTERIAL BLOOD SPECIMENOrdering Facility: [facility] Address: [address] [place] [address] Performed By: #### A LLBG ####[facility] LABIA [id number] [place] [address] [place] Potassium [Moles/Vol] 4.7 mmol/L Normal 3.5-5.0 [facility] Comment on above: Order Comment: Speci men Type: ARTERIAL BLOOD SPECIMENOrdering Facility: [facility] Address: [address] [place] [address] Performed By: #### A LLBG ####[facility] LABIA [id number] [place] [address] [place] Sodium [Moles/Vol] 132 mmol/L Low 136-144 [facility] Comment on above: Order Comment: Speci men Type: ARTERIAL BLOOD SPECIMENOrdering Facility: [facility] Address: [address] [place] [address] Performed By: #### A LLBG ####[facility] LABCLIA [id number] [place] [id number] [place] Base excess Calc (Bld) [Moles/Vol] 2 mmol/L Normal 0-2 [facility] Comment on above: Order Comment: Speci men Type: ARTERIAL BLOOD SPECIMENOrdering Facility: [facility] Address: [address] [place] [address] Performed By: #### A LLBG ####[facility] LABCLIA [id number] [place] [address] [place] Body temperature 98.6 [degF] Normal [facility] Comment on above: Order Comment: Speci men Type: ARTERIAL BLOOD SPECIMENOrdering Facility: [facility] Address: [address] [place] [address] Performed By: #### A LLBG ####[facility] LABIA [id number] [place] [address] [place] Calcium.ionized (Bld) [Mass/Vol] 1.17 mmol/L Normal 1.08-1.30 [facility] Comment on above: Order Comment: Speci men Type: ARTERIAL BLOOD SPECIMENOrdering Facility: [facility] Address: [address] [place] [address] Performed By: #### A LLBG ####[facility] [id number] [place] [address] [place] Calcium.ionized adjusted to pH 7.4 (BldA) [Moles/Vol] 1.18 mmol/L Normal 1.08-1.30 [facility] Comment on above: Order Comment: Speci men Type: ARTERIAL BLOOD SPECIMENOrdering Facility: [facility] Address: [address] [place] [address] Performed By: #### A LLBG ####[facility] LABIA [id number] [place] [address] [place] Carboxyhemoglobin (BldA) [Mass fraction] 0.6 % Normal 0.0-2.0 [facility] Comment on above: Order Comment: Speci men Type: ARTERIAL BLOOD SPECIMENOrdering Facility: [facility] Address: [address] [place] [address] Result Comment: Carb oxyhemoglobin Reference Range for Smokers: 2.0-8.0% Performed By: #### A LLBG ####[facility] LABCLIA [id number] [address] [place] [address] [place] CO2 (Bld) [Partial pressure] 42 mm Hg Normal 36-46 [facility] Comment on above: Order Comment: Speci men Type: ARTERIAL BLOOD SPECIMENOrdering Facility: [facility] Address: [address] [place] [address] Performed By: #### A LLBG ####[facility] LABCLIA [id number] [address], [facility]95 [place] Glucose [Mass/Vol] 215 mg/dL High 60-105 [facility] Comment on above: Order Comment: Speci men Type: ARTERIAL BLOOD SPECIMENOrdering Facility: [facility] Address: [address] [place] [address] Performed By: #### A LLBG ####[facility] LABCLIA [id number] [place] [id number] [place] HCO3 (Bld) [Moles/Vol] 26 mmol/L Normal 22-26 [facility] Comment on above: Order Comment: Speci men Type: ARTERIAL BLOOD SPECIMENOrdering Facility: [facility] Address: [address] [place] [address] Performed By: #### A LLBG ####[facility] LABCLIA [id number] [address], [facility]95 [place] Hematocrit (Bld) [Volume fraction] 25.1 % Low 39.0-51.0 [facility] Comment on above: Order Comment: Speci men Type: ARTERIAL BLOOD SPECIMENOrdering Facility: [facility] Address: [address] [place], [place] [address] Performed By: #### A LLBG ####[facility] LABCLIA [id number] [place] [id number] [place] Hemoglobin (Bld) [Mass/Vol] 8.1 g/dL Low 13.0-17.0 [facility] Comment on above: Order Comment: Speci men Type: ARTERIAL BLOOD SPECIMENOrdering Facility: [facility] Address: [address] [place] [address] Performed By: #### A LLBG ####[facility] LABCLIA [id number] [address], [facility]95 [place] Lactate [Moles/Vol] 1.9 mmol/L Normal 0.5-2.2 [facility] Comment on above: Order Comment: Speci men Type: ARTERIAL BLOOD SPECIMENOrdering Facility: [facility] Address: [address] [place] [address] Performed By: #### A LLBG ####[facility] LABCLIA [id number] [place] [address] [place] LITERS 4 Liters/min Normal [facility] Comment on above: Order Comment: Speci men Type: ARTERIAL BLOOD SPECIMENOrdering Facility: [facility] Address: [address] [place] [address] Performed By: #### A LLBG ####[facility] LABCLIA [id number] [place] [id number] [place] Methemoglobin (Bld) [Mass fraction] 0.5 % Normal 0.0-1.5 [facility] Comment on above: Order Comment: Speci men Type: ARTERIAL BLOOD SPECIMENOrdering Facility: [facility] Address: [address] [place] [address] Performed By: #### A LLBG ####[facility] LABCLIA [id number] [address], [facility]95 [place] O2 THERAPY NC = Nasal Cannula Normal [facility] Comment on above: Order Comment: Speci men Type: ARTERIAL BLOOD SPECIMENOrdering Facility: [facility] Address: [address] [place] [address] Performed By: #### A LLBG ####[facility] LABCLIA [id number] [place] [id number] [place] Oxygen (Bld) [Partial pressure] 126 mm Hg High 85-95 [facility] Comment on above: Order Comment: Speci men Type: ARTERIAL BLOOD SPECIMENOrdering Facility: [facility] Address: [address] [place] [address] Performed By: #### A LLBG ####[facility] LABCLIA [id number] [address] [address] [place] Oxyhemoglobin (BldA) [Mass fraction] 96 % Normal 95-98 [facility] Comment on above: Order Comment: Speci men Type: ARTERIAL BLOOD SPECIMENOrdering Facility: [facility] Address: [address] [place] [address] Performed By: #### A LLBG ####[facility] LABCLIA [id number] [place] [id number] [place] pH (Bld) 7.42 [pH] Normal 7.35-7.45 [facility] Comment on above: Order Comment: Speci men Type: ARTERIAL BLOOD SPECIMENOrdering Facility: [facility] Address: [address] [place] [address] Performed By: #### A LLBG ####[facility] LABIA [id number] [place] [id number] [place] Potassium [Moles/Vol] 4.4 mmol/L Normal 3.5-5.0 [facility] Comment on above: Order Comment: Speci men Type: ARTERIAL BLOOD SPECIMENOrdering Facility: [facility] Address: [address] [place], [place] [address] Performed By: #### A LLBG ####[facility] LABCLIA [id number] [place] [id number] [place] Sodium [Moles/Vol] 132 mmol/L Low 136-144 [facility] Comment on above: Order Comment: Speci men Type: ARTERIAL BLOOD SPECIMENOrdering Facility: [facility] Address: [address] [place] [address] Performed By: #### A LLBG ####[facility] LABIA [id number] [place] [address] [place] Base excess Calc (Bld) [Moles/Vol] 4 mmol/L High 0-2 [facility] Comment on above: Order Comment: Speci men Type: ARTERIAL BLOOD SPECIMENOrdering Facility: [facility] Address: [address] [place] [address] Performed By: #### A LLBG ####[facility] LABIA [id number] [place] [address] [place] Calcium.ionized adjusted to pH 7.4 (BldA) [Moles/Vol] 1.19 mmol/L Normal 1.08-1.30 [facility] Comment on above: Order Comment: Speci men Type: ARTERIAL BLOOD SPECIMENOrdering Facility: [facility] Address: [address] [place] [address] Performed By: #### A LLBG ####[facility] [id number] [place] [address] [place] Carboxyhemoglobin (BldA) [Mass fraction] <0.0 Low 0.0-2.0 [facility] Comment on above: Order Comment: Speci men Type: ARTERIAL BLOOD SPECIMENOrdering Facility: [facility] Address: [address] [place] [address] Result Comment: Carb oxyhemoglobin Reference Range for Smokers: 2.0-8.0% Performed By: #### A LLBG ####[facility] LABIA [id number] [place] [address] [place] CO2 (Bld) [Partial pressure] 45 mm Hg Normal 36-46 [facility] Comment on above: Order Comment: Speci men Type: ARTERIAL BLOOD SPECIMENOrdering Facility: [facility] Address: [address] [place] [address] Performed By: #### A LLBG ####[facility] LABIA [id number] [address] [place] [address] [place] CO2 adjusted to patient's actual temperature (Bld) [Partial pressure] 44 mmHg Normal 36-46 [facility] Comment on above: Order Comment: Speci men Type: ARTERIAL BLOOD SPECIMENOrdering Facility: [facility] Address: [address] [place] [address] Performed By: #### A LLBG ####[facility] LABCLIA [id number] [facility] [address] [place] [address] [place] Glucose [Mass/Vol] 264 mg/dL High 60-105 [facility] Comment on above: Order Comment: Speci men Type: ARTERIAL BLOOD SPECIMENOrdering Facility: [facility] Address: [address] [place] [address] Performed By: #### A LLBG ####[facility] LABCLIA [id number] [facility] [address], [facility]95 [place] Hematocrit (Bld) [Volume fraction] 24.8 % Low 39.0-51.0 [facility] Comment on above: Order Comment: Speci men Type: ARTERIAL BLOOD SPECIMENOrdering Facility: [facility] Address: [address] [place] [address] Performed By: #### A LLBG ####[facility] LABCLIA [id number] [facility] [address] [place] [address] [place] Hemoglobin (Bld) [Mass/Vol] 8.0 g/dL Low 13.0-17.0 [facility] Comment on above: Order Comment: Speci men Type: ARTERIAL BLOOD SPECIMENOrdering Facility: [facility] Address: [address] [place] [address] Performed By: #### A LLBG ####[facility] LABCLIA [id number] [facility] [address] [place] [address] [place] Methemoglobin (Bld) [Mass fraction] 1.3 % Normal 0.0-1.5 [facility] Comment on above: Order Comment: Speci men Type: ARTERIAL BLOOD SPECIMENOrdering Facility: [facility] Address: [address] [place], [place] [address] Performed By: #### A LLBG ####[facility] LABCLIA [id number] [address] [address] [place] Oxygen (Bld) [Partial pressure] 129 mm Hg High 85-95 [facility] Comment on above: Order Comment: Speci men Type: ARTERIAL BLOOD SPECIMENOrdering Facility: [facility] Address: [address] [place] [address] Performed By: #### A LLBG ####[facility] LABCLIA [id number] [place] [id number] [place] Oxygen adjusted to patient's actual temperature (Bld) [Partial pressure] 127 mmHg High 85-95 [facility] Comment on above: Order Comment: Speci men Type: ARTERIAL BLOOD SPECIMENOrdering Facility: [facility] Address: [address] [place] [address] Performed By: #### A LLBG ####[facility] LABCLIA [id number] [place] [address] [place] Oxyhemoglobin (BldA) [Mass fraction] 96 % Normal 95-98 [facility] Comment on above: Order Comment: Speci men Type: ARTERIAL BLOOD SPECIMENOrdering Facility: [facility] Address: [address] [place] [address] Performed By: #### A LLBG ####[facility] LABCLIA [id number] [address] [address] [place] pH (Bld) 7.42 [pH] Normal 7.35-7.45 [facility] Comment on above: Order Comment: Speci men Type: ARTERIAL BLOOD SPECIMENOrdering Facility: [facility] Address: [address] [place], [place] [address] Performed By: #### A LLBG ####[facility] LABCLIA [id number] [place] [address] [place] pH adjusted to patient's actual temperature (Bld) 7.42 Normal 7.35-7.45 [facility] Comment on above: Order Comment: Speci men Type: ARTERIAL BLOOD SPECIMENOrdering Facility: [facility] Address: [address] [place] [address] Performed By: #### A LLBG ####[facility] LABIA [id number] [place] [address] [place] Potassium [Moles/Vol] 4.5 mmol/L Normal 3.5-5.0 [facility] Comment on above: Order Comment: Speci men Type: ARTERIAL BLOOD SPECIMENOrdering Facility: [facility] Address: [address] [place] [address] Performed By: #### A LLBG ####[facility] LABIA [id number] [place] [address] [place] [place] Sodium [Moles/Vol] 132 mmol/L Low 136-144 [facility] Comment on above: Order Comment: Speci men Type: ARTERIAL BLOOD SPECIMENOrdering Facility: [facility] Address: [address] [place] [address] Performed By: #### A LLBG ####[facility] LABIA [id number] [place] [address] [place] Albumin Fld-[facility] 5 Albumin (Body fld) [Mass/Vol] 0.7 g/dL Normal See Comment [facility] Comment on above: Order Comment: Speci men Type: SPECIMEN FROM PLEURA OBTAINED BY THORACENTESISOrdering Facility: [facility] Address: [address] [place] [address] Result Comment: Body Fluid Albumin may be [...] document C49A. ANDREY Bright: Clinical Laboratory Standards [place]: 2007.2. Roes FLEMING. Serum to ascites albumin gradient. UpToDate. 2015. Accessed on May 22, 2015. Performed By: #### 2 881-1, 64718-7, 2529-6, 1747-5 ####[facility] LABCLIA [id number] [place] [address] [place] Albumin SerPl-mCncon 16-2 025 Albumin [Mass/Vol] 2.8 g/dL Low 3.9-4.9 [facility] Comment on above: Order Comment: Speci men Type: BLOOD SPECIMENOrdering Facility: [facility] Address: [address] [place] [address] Performed By: #### 1 751-7, 2885-2, 2093-3 ####[facility] LABCLIA [id number] [place] [address] [place] BODY FLUID CELL COUNTon - Clarity (Unsp spec) Not Indicated Normal Clear [facility] Comment on above: Order Comment: Speci men Type: SPECIMEN FROM PLEURA OBTAINED BY THORACENTESISOrdering Facility: [facility] Address: [address] [place] [address] Performed By: #### C CBF, [id number] ####[facility] LABCLIA [id number] [place] [address] [place] Color (Body fld) Not Indicated Normal Yellow [facility] Comment on above: Order Comment: Speci men Type: SPECIMEN FROM PLEURA OBTAINED BY THORACENTESISOrdering Facility: [facility] Address: [address] [place] [address] Performed By: #### C CBF, [id number] ####[facility] LABCLIA [id number] [facility] [address] [place] RBC Manual cnt (Body fld) [#/Vol] <2000 Normal <2000 [facility] Comment on above: Order Comment: Speci men Type: SPECIMEN FROM PLEURA OBTAINED BY THORACENTESISOrdering Facility: [facility] Address: [address] [place] [address] Performed By: #### C CBF, [id number] ####[facility] LABCLIA [id number] [facility] [place] [address] [place] Specimen source Nom (Body fld) Pleural Cavity, Right Normal [facility] Comment on above: Order Comment: Speci men Type: SPECIMEN FROM PLEURA OBTAINED BY THORACENTESISOrdering Facility: [facility] Address: [address] [place] [address] Performed By: #### C CBF, [id number] ####[facility] LABCLIA [id number] [facility] [address] [place] WBC Manual cnt (Body fld) [#/Vol] 28 /uL Normal <1000 [facility] Comment on above: Order Comment: Speci men Type: SPECIMEN FROM PLEURA OBTAINED BY THORACENTESISOrdering Facility: [facility] Address: [address] [place] [address] Performed By: #### C CBF, [id number] ####[facility] LABCLIA [id number] [facility] [place] [address] [place] Bacteria Fld Culton 10-25-19 25 Bacteria identified Cx Nom (Body fld) CULTURE, BODY FLD: No growth GRAM STAIN: No organisms seen No Polymorphonuclear Leukocytes Gram stain performed on cytospun specimen. Gram stain from primary specimen Normal [facility] Comment on above: Performed By: #### 6 11-4 ####[facility] LABCLIA [id number] [address] [address] [place] Basic metabolic 2000 panelon 10-24-2024 Anion gap [Moles/Vol] 7 mmol/L Low 8-15 [facility] Comment on above: Order Comment: Speci men Type: BLOOD SPECIMENOrdering Facility: [facility] Address: [address] [place], [place] [address] Performed By: #### 2 4321-2, 90389-3 ####[facility] LABCLIA [id number] [address] [address] [place] Calcium [Mass/Vol] 8.1 mg/dL Low 8.5-10.2 [facility] Comment on above: Order Comment: Speci men Type: BLOOD SPECIMENOrdering Facility: [facility] Address: [address] [place] [address] Performed By: #### 2 4321-2, 20576-4 ####[facility] LABCLIA [id number] [place] [id number] [place] Chloride [Moles/Vol] 100 mmol/L Normal 98-107 [facility] Comment on above: Order Comment: Speci men Type: BLOOD SPECIMENOrdering Facility: [facility] Address: [address] [place], [place] [address] Performed By: #### 2 4321-2, 40240-6 ####[facility] LABCLIA [id number] [place] [address] [place] CO2 [Moles/Vol] 27 mmol/L Normal 22-30 [facility] Comment on above: Order Comment: Speci men Type: BLOOD SPECIMENOrdering Facility: [facility] Address: [address] [place], [place] [address] Performed By: #### 2 4321-2, 92883-0 ####[facility] LABCLIA [id number] [address] [address] [place] Creatinine [Mass/Vol] 1.34 mg/dL High 0.73-1.22 [facility] Comment on above: Order Comment: Gini nowak Type: BLOOD SPECIMENOrdering Facility: [facility] Address: [address] [place] [address] Performed By: #### 2 4321-2, 14060-5 ####[facility] LABCLIA [id number] [place] [address] [place] eGFRcr SerPlBld CKD-EPI 2020 60 mL/min/1.73m??? Normal >=60 [facility] Comment on above: Order Comment: Gini nowak Type: BLOOD SPECIMENOrdering Facility: [facility] Address: [address] [place] [address] Result Comment: Gurwinder mated Glomerular Filtration Rate [...] actual GFR. Performed By: #### 2 4321-2, 66361-5 ####[facility] LABCLIA [id number] [place] [address] [place] Glucose [Mass/Vol] 270 mg/dL High 74-99 [facility] Comment on above: Order Comment: Gini nowak Type: BLOOD SPECIMENOrdering Facility: [facility] Address: [address] [place] [address] Result Comment: The [place] Diabetes Association (ADA) provides guidance for cutoff [...] Standards of Medical Care in Diabetes 2016, [place] [employer]. Diabetes Care. 2016.39(Suppl 1). Performed By: #### 2 4321-2, 38960-2 ####[facility] LABIA [id number] [address] [address] [place] Potassium [Moles/Vol] 4.7 mmol/L Normal 3.7-5.1 [facility] Comment on above: Order Comment: Speci men Type: BLOOD SPECIMENOrdering Facility: [facility] Address: [address] [place] [address] Performed By: #### 2 4321-2, 15857-3 ####[facility] [id number] [place] [address] [place] Sodium [Moles/Vol] 134 mmol/L Low 136-144 [facility] Comment on above: Order Comment: Speci men Type: BLOOD SPECIMENOrdering Facility: [facility] Address: [address] [place] [address] Performed By: #### 2 4321-2, 53065-3 ####[facility] [id number] [place] [address] [place] Urea nitrogen [Mass/Vol] 20 mg/dL Normal 9-24 [facility] Comment on above: Order Comment: Speci men Type: BLOOD SPECIMENOrdering Facility: [facility] Address: [address] [place] [address] Performed By: #### 2 4321-2, 07413-1 ####[facility] [id number] [place] [id number] [place] CBC W Auto Differential pane l (Bld)on 10-24-2024 Basophils (Bld) [#/Vol] 0.05 10*3/uL Normal <0.11 [facility] Comment on above: Order Comment: Speci men Type: BLOOD SPECIMENOrdering Facility: [facility] Address: [address] [place] [address] Performed By: #### 5 7021-8 ####[facility] LABCLIA [id number] [facility] [address], [place] [address] [place] Basophils/100 WBC (Bld) 0.7 % Normal [facility] Comment on above: Order Comment: Speci men Type: BLOOD SPECIMENOrdering Facility: [facility] Address: [address] [place] [address] Performed By: #### 5 7021-8 ####[facility] LABCLIA [id number] [place] [address] [place] Differential cell count method Nom (Bld) Auto Normal [facility] Comment on above: Order Comment: Speci men Type: BLOOD SPECIMENOrdering Facility: [facility] Address: [address] [place] [address] Performed By: #### 5 7021-8 ####[facility] LABCLIA [id number] [address] [place] Eosinophils (Bld) [#/Vol] 0.08 10*3/uL Normal <0.46 [facility] Comment on above: Order Comment: Speci men Type: BLOOD SPECIMENOrdering Facility: [facility] Address: [address] [place] [address] Performed By: #### 5 7021-8 ####[facility] LABCLIA [id number] [address] [place] Eosinophils/100 WBC (Bld) 1.1 % Normal [facility] Comment on above: Order Comment: Speci men Type: BLOOD SPECIMENOrdering Facility: [facility] Address: [address] [place] [address] Performed By: #### 5 7021-8 ####[facility] LABCLIA [id number] [place] [address] [place] Erythrocyte distribution width (RBC) [Ratio] 17.6 % High 11.5-15.0 [facility] Comment on above: Order Comment: Speci men Type: BLOOD SPECIMENOrdering Facility: [facility] Address: [address] [place] [address] Performed By: #### 5 7021-8 ####[facility] LABCLIA [id number] [address] [address] [place] Hematocrit (Bld) [Volume fraction] 23.7 % Low 39.0-51.0 [facility] Comment on above: Order Comment: Speci men Type: BLOOD SPECIMENOrdering Facility: [facility] Address: [address] [place] [address] Performed By: #### 5 7021-8 ####[facility] LABCLIA [id number] [address], [place] [address] [place] Hemoglobin (Bld) [Mass/Vol] 7.7 g/dL Low 13.0-17.0 [facility] Comment on above: Order Comment: Speci men Type: BLOOD SPECIMENOrdering Facility: [facility] Address: [address] [place] [address] Performed By: #### 5 7021-8 ####[facility] LABIA [id number] [place] [address] [place] Immature granulocytes (Bld) [#/Vol] 0.05 10*3/uL Normal <0.10 [facility] Comment on above: Order Comment: Speci men Type: BLOOD SPECIMENOrdering Facility: [facility] Address: [address] [place] [address] Performed By: #### 5 7021-8 ####[facility] LABIA [id number] [place] [address] [place] Immature granulocytes/100 WBC (Bld) 0.7 % Normal [facility] Comment on above: Order Comment: Speci men Type: BLOOD SPECIMENOrdering Facility: [facility] Address: [address] [place] [address] Performed By: #### 5 7021-8 ####[facility] LABCLIA [id number] [place] [address] [place] Lymphocytes (Bld) [#/Vol] 0.71 10*3/uL Low 1.00-4.00 [facility] Comment on above: Order Comment: Speci men Type: BLOOD SPECIMENOrdering Facility: [facility] Address: [address] [place] [address] Performed By: #### 5 7021-8 ####[facility] LABCLIA [id number] [place] [address] [place] Lymphocytes/100 WBC (Bld) 9.5 % Normal [facility] Comment on above: Order Comment: Speci men Type: BLOOD SPECIMENOrdering Facility: [facility] Address: [address] [place] [address] Performed By: #### 5 7021-8 ####[facility] LABIA [id number] [place] [address] [place] MCH (RBC) [Entitic mass] 32.4 pg Normal 26.0-34.0 [facility] Comment on above: Order Comment: Speci men Type: BLOOD SPECIMENOrdering Facility: [facility] Address: [address] [place] [address] Performed By: #### 5 7021-8 ####[facility] LABCLIA [id number] [place] [address] [place] MCHC (RBC) [Mass/Vol] 32.5 g/dL Normal 30.5-36.0 [facility] Comment on above: Order Comment: Speci men Type: BLOOD SPECIMENOrdering Facility: [facility] Address: [address] [place] [address] Performed By: #### 5 7021-8 ####[facility] LABIA [id number] [place] [address] [place] MCV (RBC) [Entitic vol] 99.6 fL Normal 80.0-100.0 C [facility] Comment on above: Order Comment: Speci men Type: BLOOD SPECIMENOrdering Facility: [facility] Address: [address] [place] [address] Performed By: #### 5 7021-8 ####[facility] LABCLIA [id number] [place] [address] [place] Monocytes (Bld) [#/Vol] 0.75 10*3/uL Normal <0.87 [facility] Comment on above: Order Comment: Speci men Type: BLOOD SPECIMENOrdering Facility: [facility] Address: [address] [place] [address] Performed By: #### 5 7021-8 ####[facility] LABCLIA [id number] [place] [address] [place] Monocytes/100 WBC (Bld) 10.1 % Normal C [facility] Comment on above: Order Comment: Speci men Type: BLOOD SPECIMENOrdering Facility: [facility] Address: [address] [place] [address] Performed By: #### 5 7021-8 ####[facility] LABCLIA [id number] [place] [address] [place] Neutrophils (Bld) [#/Vol] 5.80 10*3/uL Normal 1.45-7.50 [facility] Comment on above: Order Comment: Speci men Type: BLOOD SPECIMENOrdering Facility: [facility] Address: [address] [place] [address] Performed By: #### 5 7021-8 ####[facility] LABCLIA [id number] [place] [address] [place] Neutrophils/100 WBC (Bld) 77.9 % Normal [facility] Comment on above: Order Comment: Speci men Type: BLOOD SPECIMENOrdering Facility: [facility] Address: [address] [place] [address] Performed By: #### 5 7021-8 ####[facility] LABCLIA [id number] [place] [address] [place] Nucleated RBC (Bld) [#/Vol] 10*3/uL Normal <0.01 [facility] Comment on above: Order Comment: Speci men Type: BLOOD SPECIMENOrdering Facility: [facility] Address: [address] [place] [address] Performed By: #### 5 7021-8 ####[facility] LABIA [id number] [place] [address] [place] Nucleated RBC/100 WBC (Bld) [Ratio] 0.0 /100 WBC Normal [facility] Comment on above: Order Comment: Speci men Type: BLOOD SPECIMENOrdering Facility: [facility] Address: [address] [place] [address] Performed By: #### 5 7021-8 ####[facility] LABIA [id number] [place] [address] [place] Platelet mean volume (Bld) [Entitic vol] 11.8 fL Normal 9.0-12.7 [facility] Comment on above: Order Comment: Speci men Type: BLOOD SPECIMENOrdering Facility: [facility] Address: [address] [place] [address] Performed By: #### 5 7021-8 ####[facility] LABCLIA [id number] [place] [address] [place] Platelets (Bld) [#/Vol] 94 10*3/uL Low 150-400 C [facility] Comment on above: Order Comment: Speci men Type: BLOOD SPECIMENOrdering Facility: [facility] Address: [address] [place] [address] Result Comment: No c lot detected.Results checked and verified. Performed By: #### 5 7021-8 ####[facility] LABCLIA [id number] [place] [address] [place] RBC (Bld) [#/Vol] 2.38 10*6/uL Low 4.20-6.00 [facility] Comment on above: Order Comment: Speci men Type: BLOOD SPECIMENOrdering Facility: [facility] Address: [address] [place] [address] Performed By: #### 5 7021-8 ####[facility] LABIA [id number] [place] [address] [place] WBC (Bld) [#/Vol] 7.44 10*3/uL Normal 3.70-11.00 [facility] Comment on above: Order Comment: Speci men Type: BLOOD SPECIMENOrdering Facility: [facility] Address: [address] [place] [address] Performed By: #### 5 7021-8 ####[facility] LABIA [id number] [place] [address] [place] CBC W Ordered Manual Differe ntial panel (Bld)on 10-24-2024 Basophils (Bld) [#/Vol] 0.04 10*3/uL Normal <0.11 [facility] Comment on above: Order Comment: Speci men Type: BLOOD SPECIMENOrdering Facility: [facility] Address: [address] [place] [address] Performed By: #### 5 7782-5, STFREV ####[facility] LABIA [id number] [place] [address] [place] Basophils/100 WBC (Bld) 0.6 % Normal [facility] Comment on above: Order Comment: Speci men Type: BLOOD SPECIMENOrdering Facility: [facility] Address: [address] [place] [address] Performed By: #### 5 7782-5, STFREV ####[facility] LABCLIA [id number] [place] [address] [place] Differential cell count method Nom (Bld) Auto Normal [facility] Comment on above: Order Comment: Speci men Type: BLOOD SPECIMENOrdering Facility: [facility] Address: [address] [place] [address] Performed By: #### 5 7782-5, STFREV ####[facility] LABCLIA [id number] [place] [address] [place] Eosinophils (Bld) [#/Vol] 0.06 10*3/uL Normal <0.46 [facility] Comment on above: Order Comment: Speci men Type: BLOOD SPECIMENOrdering Facility: [facility] Address: [address] [place] [address] Performed By: #### 5 7782-5, STFREV ####[facility] LABCLIA [id number] [place] [address] [place] Eosinophils/100 WBC (Bld) 1.0 % Normal [facility] Comment on above: Order Comment: Speci men Type: BLOOD SPECIMENOrdering Facility: [facility] Address: [address] [place] [address] Performed By: #### 5 7782-5, STFREV ####[facility] LABCLIA [id number] [place] [address] [place] Erythrocyte distribution width (RBC) [Ratio] 17.4 % High 11.5-15.0 [facility] Comment on above: Order Comment: Speci men Type: BLOOD SPECIMENOrdering Facility: [facility] Address: [address] [place] [address] Performed By: #### 5 7782-5, STFREV ####[facility] LABCLIA [id number] [place] [address] [place] Hematocrit (Bld) [Volume fraction] 24.3 % Low 39.0-51.0 [facility] Comment on above: Order Comment: Speci men Type: BLOOD SPECIMENOrdering Facility: [facility] Address: [address] [place] [address] Performed By: #### 5 7782-5, STFRLUZ ####[facility] LABCLIA [id number] [place] [address] [place] Hemoglobin (Bld) [Mass/Vol] 7.9 g/dL Low 13.0-17.0 [facility] Comment on above: Order Comment: Speci men Type: BLOOD SPECIMENOrdering Facility: [facility] Address: [address] [place] [address] Performed By: #### 5 7782-5, STAYANNA ####[facility] LABCLIA [id number] [place] [address] [place] Immature granulocytes (Bld) [#/Vol] 0.03 10*3/uL Normal <0.10 [facility] Comment on above: Order Comment: Speci men Type: BLOOD SPECIMENOrdering Facility: [facility] Address: [address] [place] [address] Performed By: #### 5 7782-5, STFRLUZ ####[facility] LABCLIA [id number] [place] [address] [place] Immature granulocytes/100 WBC (Bld) 0.5 % Normal [facility] Comment on above: Order Comment: Speci men Type: BLOOD SPECIMENOrdering Facility: [facility] Address: [address] [place] [address] Performed By: #### 5 7782-5, STFREV ####[facility] LABCLIA [id number] [place] [address] [place] Lymphocytes (Bld) [#/Vol] 0.90 10*3/uL Low 1.00-4.00 [facility] Comment on above: Order Comment: Speci men Type: BLOOD SPECIMENOrdering Facility: [facility] Address: [address] [place] [address] Performed By: #### 5 7782-5, STFREV ####[facility] LABCLIA [id number] [place] [address] [place] Lymphocytes/100 WBC (Bld) 14.4 % Normal [facility] Comment on above: Order Comment: Speci men Type: BLOOD SPECIMENOrdering Facility: [facility] Address: [address] [place] [address] Performed By: #### 5 7782-5, STFREV ####[facility] LABIA [id number] [place] [address] [place] MCH (RBC) [Entitic mass] 32.5 pg Normal 26.0-34.0 [facility] Comment on above: Order Comment: Speci men Type: BLOOD SPECIMENOrdering Facility: [facility] Address: [address] [place] [address] Performed By: #### 5 7782-5, STFREV ####[facility] LABIA [id number] [place] [address] [place] MCHC (RBC) [Mass/Vol] 32.5 g/dL Normal 30.5-36.0 [facility] Comment on above: Order Comment: Speci men Type: BLOOD SPECIMENOrdering Facility: [facility] Address: [address] [place] [address] Performed By: #### 5 7782-5, STFREV ####[facility] LABIA [id number] [place] [address] [place] MCV (RBC) [Entitic vol] 100.0 fL Normal 80.0-100.0 C [facility] Comment on above: Order Comment: Speci men Type: BLOOD SPECIMENOrdering Facility: [facility] Address: [address] [place] [address] Performed By: #### 5 7782-5, STFREV ####[facility] LABCLIA [id number] [address] [place] [address] [place] Monocytes (Bld) [#/Vol] 0.72 10*3/uL Normal <0.87 [facility] Comment on above: Order Comment: Speci men Type: BLOOD SPECIMENOrdering Facility: [facility] Address: [address] [place] [address] Performed By: #### 5 7782-5, STFREV ####[facility] LABCLIA [id number] [place] [address] [place] Monocytes/100 WBC (Bld) 11.6 % Normal [facility] Comment on above: Order Comment: Speci men Type: BLOOD SPECIMENOrdering Facility: [facility] Address: [address] [place] [address] Performed By: #### 5 7782-5, STFREV ####[facility] LABCLIA [id number] [place] [address] [place] Neutrophils (Bld) [#/Vol] 4.48 10*3/uL Normal 1.45-7.50 [facility] Comment on above: Order Comment: Speci men Type: BLOOD SPECIMENOrdering Facility: [facility] Address: [address] [place] [address] Performed By: #### 5 7782-5, STFREV ####[facility] LABCLIA [id number] [place] [address] [place] Neutrophils/100 WBC (Bld) 71.9 % Normal [facility] Comment on above: Order Comment: Speci men Type: BLOOD SPECIMENOrdering Facility: [facility] Address: [address] [place] [address] Performed By: #### 5 7782-5, STFREV ####[facility] LABCLIA [id number] [place] [id number] [place] Nucleated RBC (Bld) [#/Vol] 10*3/uL Normal <0.01 [facility] Comment on above: Order Comment: Speci men Type: BLOOD SPECIMENOrdering Facility: [facility] Address: [address] [place] [address] Performed By: #### 5 7782-5, STFREV ####[facility] LABCLIA [id number] [place] [id number] [place] Nucleated RBC/100 WBC (Bld) [Ratio] 0.0 /100 WBC Normal [facility] Comment on above: Order Comment: Speci men Type: BLOOD SPECIMENOrdering Facility: [facility] Address: [address] [place] [address] Performed By: #### 5 7782-5, STFREV ####[facility] LABCLIA [id number] [place] [address] [place] Platelet mean volume (Bld) [Entitic vol] 12.3 fL Normal 9.0-12.7 [facility] Comment on above: Order Comment: Speci men Type: BLOOD SPECIMENOrdering Facility: [facility] Address: [address] [place] [address] Performed By: #### 5 7782-5, STFREV ####[facility] LABCLIA [id number] [place] [address] [place] Platelets (Bld) [#/Vol] 103 10*3/uL Low 150-400 [facility] Comment on above: Order Comment: Speci men Type: BLOOD SPECIMENOrdering Facility: [facility] Address: [address] [place] [address] Performed By: #### 5 7782-5, STFREV ####[facility] LABCLIA [id number] [place] [address] [place] RBC (Bld) [#/Vol] 2.43 10*6/uL Low 4.20-6.00 [facility] Comment on above: Order Comment: Speci men Type: BLOOD SPECIMENOrdering Facility: [facility] Address: [address] [place] [address] Performed By: #### 5 7782-5, STFREV ####[facility] LABIA [id number] [place] [address] [place] WBC (Bld) [#/Vol] 6.23 10*3/uL Normal 3.70-11.00 [facility] Comment on above: Order Comment: Speci men Type: BLOOD SPECIMENOrdering Facility: [facility] Address: [address] [place] [address] Performed By: #### 5 7782-5, STFREV ####[facility] LABIA [id number] [place] [address] [place] CBC panel Auto (Bld)on 10-24 Erythrocyte distribution width (RBC) [Ratio] 17.2 % High 11.5-15.0 [facility] Comment on above: Order Comment: Speci men Type: BLOOD SPECIMENOrdering Facility: [facility] Address: [address] [place] [address] Performed By: #### 5 8410-2 ####[facility] LABIA [id number] [place] [address] [place] Hematocrit (Bld) [Volume fraction] 24.8 % Low 39.0-51.0 [facility] Comment on above: Order Comment: Speci men Type: BLOOD SPECIMENOrdering Facility: [facility] Address: [address] [place] [address] Performed By: #### 5 8410-2 ####[facility] LABIA [id number] [place] [address] [place] Hemoglobin (Bld) [Mass/Vol] 7.8 g/dL Low 13.0-17.0 [facility] Comment on above: Order Comment: Speci men Type: BLOOD SPECIMENOrdering Facility: [facility] Address: [address] [place] [address] Performed By: #### 5 8410-2 ####[facility] LABIA [id number] [place] [address] [place] MCH (RBC) [Entitic mass] 31.5 pg Normal 26.0-34.0 [facility] Comment on above: Order Comment: Speci men Type: BLOOD SPECIMENOrdering Facility: [facility] Address: [address] [place] [address] Performed By: #### 5 8410-2 ####[facility] LABIA [id number] [place] [address] [place] MCHC (RBC) [Mass/Vol] 31.5 g/dL Normal 30.5-36.0 [facility] Comment on above: Order Comment: Speci men Type: BLOOD SPECIMENOrdering Facility: [facility] Address: [address] [place] [address] Performed By: #### 5 8410-2 ####[facility] LABIA [id number] [place] [address] [place] MCV (RBC) [Entitic vol] 100.0 fL Normal 80.0-100.0 [facility] Comment on above: Order Comment: Speci men Type: BLOOD SPECIMENOrdering Facility: [facility] Address: [address] [place] [address] Performed By: #### 5 8410-2 ####[facility] LABIA [id number] [address] [place] Nucleated RBC (Bld) [#/Vol] 10*3/uL Normal <0.01 [facility] Comment on above: Order Comment: Speci men Type: BLOOD SPECIMENOrdering Facility: [facility] Address: [address] [place] [address] Performed By: #### 5 8410-2 ####[facility] LABIA [id number] [id number] [address] [place] Platelet mean volume (Bld) [Entitic vol] 11.8 fL Normal 9.0-12.7 [facility] Comment on above: Order Comment: Speci men Type: BLOOD SPECIMENOrdering Facility: [facility] Address: [address] [place] [address] Performed By: #### 5 8410-2 ####[facility] LABIA [id number] [place] [address] [place] Platelets (Bld) [#/Vol] 95 10*3/uL Low 150-400 [facility] Comment on above: Order Comment: Speci men Type: BLOOD SPECIMENOrdering Facility: [facility] Address: [address] [place] [address] Result Comment: Resu lts checked and verified.No clot detected. Performed By: #### 5 8410-2 ####[facility] LABIA [id number] [place] [address] [place] RBC (Bld) [#/Vol] 2.48 10*6/uL Low 4.20-6.00 [facility] Comment on above: Order Comment: Speci men Type: BLOOD SPECIMENOrdering Facility: [facility] Address: [address] [place] [address] Performed By: #### 5 8410-2 ####[facility] LABIA [id number] [place] [address] [place] WBC (Bld) [#/Vol] 8.00 10*3/uL Normal 3.70-11.00 [facility] Comment on above: Order Comment: Speci men Type: BLOOD SPECIMENOrdering Facility: [facility] Address: [address] [place] [address] Performed By: #### 5 8410-2 ####[facility] LABIA [id number] [place] [id number] [place] CYSTATIN Con 10-24-2024 Cystatin C [Mass/Vol] 1.48 mg/L High 0.61-0.95 [facility] Comment on above: Order Comment: Speci men Type: BLOOD SPECIMENOrdering Facility: [facility] Address: [address] [place] [address] Performed By: #### C YSTC, 2532-0 ####[facility] LABCLIA [id number] [place] [address] [place] CYSTATIN C EGFR 46 mL/min/1.73m??? Low >=60 [facility] Comment on above: Order Comment: Speci men Type: BLOOD SPECIMENOrdering Facility: [facility] Address: [address] [place] [address] Result Comment: Gurwinder mated Glomerular Filtration Rate (eGFR) is calculated using the 2012 CKD-EPI cystatin C equation. This equation utilizes serum cystatin C, sex, and age as parameters. The cystatin C assay has traceable calibration to the ERM-DA471/[facility] reference material. Refer to KDIGO guidelines for clinical interpretation. In patients with unstable renal function, e.g. those with acute kidney injury, the eGFR may not accurately reflect actual GFR. Performed By: #### C YSTC, 2-0 ####[facility] LABCLIA [id number] [place] [address] [place] CYTOLOGY NON-GYNon 5 AP DISCLAIMER Normal [facility] Comment on above: Order Comment: Speci men Type: SPECIMEN FROM PLEURA OBTAINED BY THORACENTESISOrdering Facility: [facility] Address: [address] [place] [address] Result Comment: Etienne vera Developed Test (LDT) Disclaimer:Performance characteristics of immunohistochemical, immunofluorescent, and chromogenic in-situ hybridization tests have been determined by the performing laboratory within the [facility] Department of Pathology and Laboratory Medicine ([facility], [facility], [facility], [facility], [facility], [facility], or [facility]) in a manner consistent with CLIA requirements. One or more of these tests may not have been cleared or approved by the FDA. The [facility] Department of Pathology and Laboratory Medicine is regulated under CLIA as qualified to perform high-complexity testing. These tests are used for clinical purposes. These should not be regarded as investigational or for research. Positive and negative controls stain appropriately. Performed By: #### C YTONON ####[facility] LABCLIA [id number] [place] [address] [place] CASE REPORT Normal [facility] Comment on above: Order Comment: Speci men Type: SPECIMEN FROM PLEURA OBTAINED BY THORACENTESISOrdering Facility: [facility] Address: [address] [place] [address] Result Comment: [facility] Cytology Report Case: [id number] Provider: Piper Chin MD Collected: 10/24/2024 10:18 AMOrdering Location: [id number] Received: 10/24/2024 03:20 PMPathologist: Tee Barroso MDSpecimen: Pleural Cavity, Right Performed By: #### C YTONON ####[facility] LABCLIA [id number] [place] [address] [place] CLINICAL HISTORY Heart Failure with Bilateral Pleural effusions Normal [facility] Comment on above: Order Comment: Speci men Type: SPECIMEN FROM PLEURA OBTAINED BY THORACENTESISOrdering Facility: [facility] Address: [address] [place] [address] Performed By: #### C YTONON ####[facility] LABIA [id number] [address] [place] FINAL DIAGNOSIS Normal [facility] Comment on above: Order Comment: Speci men Type: SPECIMEN FROM PLEURA OBTAINED BY THORACENTESISOrdering Facility: [facility] Address: [address] [place] [address] Result Comment: A - Pleural Cavity, Right, Fluid. Negative for malignant cells. Acute and chronic inflammation.The following cell blocks were associated with this case:A1 Cell Block, Alcohol Fixed at 1406 EDT Performed By: #### C YTONON ####[facility] LABCLIA [id number] [place] [address] [place] FINAL PERFORMING LAB Normal [facility] Comment on above: Order Comment: Speci men Type: SPECIMEN FROM PLEURA OBTAINED BY THORACENTESISOrdering Facility: [facility] Address: [address] [place] [address] Result Comment: Tech nical component, mud boss screening performed at: [facility], [address] [place], [place] [id number] CLIA: [id number] interpretation performed at: [facility], [address] [place] [address] CLIA# [id number] Director: Jaya Jones MD Performed By: #### C YTONON ####[facility] LABCLIA [id number] [address] STATES OF [facility] GROSS DESCRIPTION Normal [facility] Comment on above: Order Comment: Speci men Type: SPECIMEN FROM PLEURA OBTAINED BY THORACENTESISOrdering Facility: [facility] Address: [address] [place] [address] Result Comment: A. P leural Cavity, Right25 cc clear yellow fluid . ThinPrep and Cell Block prepared. Performed By: #### C YTONON ####[facility] LABCLIA [id number] [place] [address] [place] Cholest Fld-mCncon 5 Cholesterol (Body fld) [Mass/Vol] 14 mg/dL Normal See Comment [facility] Comment on above: Order Comment: Speci men Type: SPECIMEN FROM PLEURA OBTAINED BY THORACENTESISOrdering Facility: [facility] Address: [address] [place] [address] Result Comment: SYNO VIAL FLUIDS:Synovial fluid cholesterol [...] document C49-A. ANDREY Bright: Clinical Laboratory Standards [place]; 2007. Performed By: #### 2 881-1, 85611-4, 2529-6, 1747-5 ####[facility] LABCLIA [id number] [place] [address] [place] Cholest SerPl-mCncon 025 Cholesterol [Mass/Vol] 107 mg/dL Normal <200 [facility] Comment on above: Order Comment: Gini nowak Type: BLOOD SPECIMENOrdering Facility: [facility] Address: [address] [place] [address] Result Comment: <200 mg/dL, Desirable 200-239 mg/dL, Borderline high>239 mg/dL, HighReference:1. National Cholesterol Education Program ATP III Guideline At-A-Glance Quick Desk Reference: National Heart, Lung, and Blood [place]. National Institutes of Health. 2001: NIH Publication No. 01-3305. Performed By: #### 1 751-7, 2885-2, 2093-3 ####[facility] LABCLIA [id number] [place] [address] [place] Fact Xa PPP-aCncon 5 Coagulation factor X activated act Coag Qn (PPP) 0.28 IU/mL High <0.10 [facility] Comment on above: Order Comment: Gini nowak Type: BLOOD SPECIMENOrdering Facility: [facility] Address: [address] [place] [address] Result Comment: The recommended therapeutic range for treatment of venous and arterial thrombosis with intravenous unfractionated heparin is an anti Xa activity level of 0.3 to 0.7 IU/mL. In patients with concomitant therapy with thrombolytic agents and/or platelet glycoprotein IIb/IIIa antagonists, the recommended therapeutic range is an anti Xa activity level of 0.2 to 0.5 IU/mL. Performed By: #### 3 4528-0, 3217-7 ####[facility] LABCLIA [id number] [place] [address] [place] Coagulation factor X activated act Coag Qn (PPP) <0.10 Normal <0.10 [facility] Comment on above: Order Comment: Gini nowak Type: BLOOD SPECIMENOrdering Facility: [facility] Address: [address] [place] [address] Result Comment: The recommended therapeutic range for treatment of venous and arterial thrombosis with intravenous unfractionated heparin is an anti Xa activity level of 0.3 to 0.7 IU/mL. In patients with concomitant therapy with thrombolytic agents and/or platelet glycoprotein IIb/IIIa antagonists, the recommended therapeutic range is an anti Xa activity level of 0.2 to 0.5 IU/mL. Performed By: #### 3 217-7, 45507-5 ####[facility] [id number] [place] [address] [place] Gas + CO Pnl BldVon 10-25-19 25 Body temperature 98.06 [degF] Normal [facility] Comment on above: Order Comment: Gini nowak Type: VENOUS BLOOD SPECIMENOrdering Facility: [facility] Address: [address] [place] [address] Performed By: #### 2 4344-4 ####[facility] LABIA [id number] [address] [place] Order Comment: Gini nowak Type: ARTERIAL BLOOD SPECIMENOrdering Facility: [facility] Address: [address] [place] [address] Performed By: #### A LLBG ####[facility] LABIA [id number] [address] [id number], [place] [address] [place] Calcium.ionized (Bld) [Mass/Vol] 1.18 mmol/L Normal 1.08-1.30 [facility] Comment on above: Order Comment: Speci men Type: VENOUS BLOOD SPECIMENOrdering Facility: [facility] Address: [address] [place] [address] Performed By: #### 2 4344-4 ####[facility] LABCLIA [id number] [address] [place] Order Comment: Speci men Type: ARTERIAL BLOOD SPECIMENOrdering Facility: [facility] Address: [address] [place] [address] Performed By: #### A LLBG ####[facility] LABCLIA [id number] [place] [address] [place] HCO3 (Bld) [Moles/Vol] 29 mmol/L High 22-26 [facility] Comment on above: Order Comment: Speci men Type: VENOUS BLOOD SPECIMENOrdering Facility: [facility] Address: [address] [place] [address] Performed By: #### 2 4344-4 ####[facility] LABCLIA [id number] [address] Order Comment: Speci men Type: ARTERIAL BLOOD SPECIMENOrdering Facility: [facility] Address: [address] [place] [address] Performed By: #### A LLBG ####[facility] LABCLIA [id number] [place] [address] [place] Lactate [Moles/Vol] 0.6 mmol/L Normal 0.5-2.2 [facility] Comment on above: Order Comment: Speci men Type: VENOUS BLOOD SPECIMENOrdering Facility: [facility] Address: [address] [place] [address] Performed By: #### 2 4344-4 ####[facility] LABCLIA [id number] [address] [address] [place] Order Comment: Speci men Type: ARTERIAL BLOOD SPECIMENOrdering Facility: [facility] Address: [address] [place] [id number] Performed By: #### A LLBG ####[facility] LABCLIA [id number] [address] [place] [address] [place] LITERS 6 Liters/min Normal [facility] Comment on above: Order Comment: Speci men Type: VENOUS BLOOD SPECIMENOrdering Facility: [facility] Address: [address] [place] [id number] Performed By: #### 2 4344-4 ####[facility] LABCLIA [id number] [address], [facility] [place] Order Comment: Speci men Type: ARTERIAL BLOOD SPECIMENOrdering Facility: [facility] Address: [address] [place] [address] Performed By: #### A LLBG ####[facility] LABCLIA [id number] [place] [id number] [place] O2 THERAPY NC = Nasal Cannula Normal [facility] Comment on above: Order Comment: Speci men Type: VENOUS BLOOD SPECIMENOrdering Facility: [facility] Address: [address] [place], [place] [address] Performed By: #### 2 4344-4 ####[facility] LABCLIA [id number] [place] [id number] [place] Order Comment: Speci men Type: ARTERIAL BLOOD SPECIMENOrdering Facility: [facility] Address: [address] [place] [id number] Performed By: #### A LLBG ####[facility] LABCLIA [id number] [address] [address] [place] Gas and Carbon monoxide pane l (BldV)on 10-24-2024 Base excess Calc (BldV) [Moles/Vol] 5 mmol/L High 0-2 [facility] Comment on above: Order Comment: Speci men Type: VENOUS BLOOD SPECIMENOrdering Facility: [facility] Address: [address] [place] [address] Performed By: #### 2 4344-4 ####[facility] LABIA [id number] [place] [address] [place] Body temperature 98.6 [degF] Normal [facility] Comment on above: Order Comment: Speci men Type: VENOUS BLOOD SPECIMENOrdering Facility: [facility] Address: [address] [place] [address] Performed By: #### 2 4344-4 ####[facility] [id number] [place] [address] [place] Calcium.ionized (Bld) [Mass/Vol] 1.21 mmol/L Normal 1.08-1.30 [facility] Comment on above: Order Comment: Speci men Type: VENOUS BLOOD SPECIMENOrdering Facility: [facility] Address: [address] [place] [address] Performed By: #### 2 4344-4 ####[facility] [id number] [place] [address] [place] Calcium.ionized adjusted to pH 7.4 (BldA) [Moles/Vol] 1.18 mmol/L Normal 1.08-1.30 [facility] Comment on above: Order Comment: Speci men Type: VENOUS BLOOD SPECIMENOrdering Facility: [facility] Address: [address] [place] [address] Performed By: #### 2 4344-4 ####[facility] [id number] [place] [address] [place] Carboxyhemoglobin (BldV) [Mass fraction] 1.0 % Normal 0.0-2.0 [facility] Comment on above: Order Comment: Speci men Type: VENOUS BLOOD SPECIMENOrdering Facility: [facility] Address: [address] [place] [address] Result Comment: Carb oxyhemoglobin Reference Range for Smokers: 2.0-8.0% Performed By: #### 2 4344-4 ####[facility] LABCLIA [id number] [address] [address] [place] CO2 (BldV) [Partial pressure] 56 mm[Hg] High 42-55 [facility] Comment on above: Order Comment: Speci men Type: VENOUS BLOOD SPECIMENOrdering Facility: [facility] Address: [address] [place] [address] Performed By: #### 2 4344-4 ####[facility] LABCLIA [id number] [place] [address] [place] Glucose [Mass/Vol] 119 mg/dL High 60-105 [facility] Comment on above: Order Comment: Speci men Type: VENOUS BLOOD SPECIMENOrdering Facility: [facility] Address: [address] [place] [address] Performed By: #### 2 4344-4 ####[facility] LABCLIA [id number] [place] [address] [place] HCO3 (Bld) [Moles/Vol] 31 mmol/L High 24-28 [facility] Comment on above: Order Comment: Speci men Type: VENOUS BLOOD SPECIMENOrdering Facility: [facility] Address: [address] [place] [address] Performed By: #### 2 4344-4 ####[facility] LABCLIA [id number] [place] [id number] [place] Hematocrit (Bld) [Volume fraction] 22.7 % Low 39.0-51.0 [facility] Comment on above: Order Comment: Speci men Type: VENOUS BLOOD SPECIMENOrdering Facility: [facility] Address: [address] [place] [address] Performed By: #### 2 4344-4 ####[facility] LABCLIA [id number] [place] [address] [place] Hemoglobin (Bld) [Mass/Vol] 7.3 g/dL Low 13.0-17.0 [facility] Comment on above: Order Comment: Speci men Type: VENOUS BLOOD SPECIMENOrdering Facility: [facility] Address: [address] [place] [address] Performed By: #### 2 4344-4 ####[facility] LABCLIA [id number] [place] [address] [place] Lactate [Moles/Vol] 0.9 mmol/L Normal 0.5-2.2 [facility] Comment on above: Order Comment: Speci men Type: VENOUS BLOOD SPECIMENOrdering Facility: [facility] Address: [address] [place] [address] Performed By: #### 2 4344-4 ####[facility] LABCLIA [id number] [place] [address] [place] LITERS 3 Liters/min Normal [facility] Comment on above: Order Comment: Speci men Type: VENOUS BLOOD SPECIMENOrdering Facility: [facility] Address: [address] [place] [address] Performed By: #### 2 4344-4 ####[facility] LABCLIA [id number] [place] [address] [place] Methemoglobin (Bld) [Mass fraction] 1.4 % Normal 0.0-1.5 [facility] Comment on above: Order Comment: Speci men Type: VENOUS BLOOD SPECIMENOrdering Facility: [facility] Address: [address] [place] [address] Performed By: #### 2 4344-4 ####[facility] LABCLIA [id number] [place] [address] [place] O2 THERAPY [place] = Nasal Cannula Normal [facility] Comment on above: Order Comment: Speci men Type: VENOUS BLOOD SPECIMENOrdering Facility: [facility] Address: [address] [place] [address] Performed By: #### 2 4344-4 ####[facility] LABCLIA [id number] [address] [place] [address] [place] Oxygen (BldV) [Partial pressure] 38 mm[Hg] Normal 35-45 [facility] Comment on above: Order Comment: Speci men Type: VENOUS BLOOD SPECIMENOrdering Facility: [facility] Address: [address] [place], [place] [address] Performed By: #### 2 4344-4 ####[facility] LABCLIA [id number] [address] [place] [address] [place] Oxygen saturation in Venous blood 65 % Normal 60-85 [facility] Comment on above: Order Comment: Speci men Type: VENOUS BLOOD SPECIMENOrdering Facility: [facility] Address: [address] [place], [place] [address] Performed By: #### 2 4344-4 ####[facility] LABIA [id number] [address] [place] [address] [place] Oxyhemoglobin (BldV) [Mass fraction] 63 % Normal 60-85 [facility] Comment on above: Order Comment: Speci men Type: VENOUS BLOOD SPECIMENOrdering Facility: [facility] Address: [address] [place], [place] [address] Performed By: #### 2 4344-4 ####[facility] LABCLIA [id number] [address] [place] [address] [place] pH (BldV) 7.36 [pH] Normal 7.32-7.42 [facility] Comment on above: Order Comment: Speci men Type: VENOUS BLOOD SPECIMENOrdering Facility: [facility] Address: [address] [place] [address] Performed By: #### 2 4344-4 ####[facility] LABCLIA [id number] [address] [address] [place] Potassium [Moles/Vol] 4.7 mmol/L Normal 3.5-5.0 [facility] Comment on above: Order Comment: Speci men Type: VENOUS BLOOD SPECIMENOrdering Facility: [facility] Address: [address] [place] [address] Performed By: #### 2 4344-4 ####[facility] LABCLIA [id number] [place] [address] [place] Sodium [Moles/Vol] 134 mmol/L Low 136-144 [facility] Comment on above: Order Comment: Speci men Type: VENOUS BLOOD SPECIMENOrdering Facility: [facility] Address: [address] [place] [address] Performed By: #### 2 4344-4 ####[facility] LABCLIA [id number] [place] [address] [place] Base excess Calc (BldV) [Moles/Vol] 4 mmol/L High 0-2 [facility] Comment on above: Order Comment: Speci men Type: VENOUS BLOOD SPECIMENOrdering Facility: [facility] Address: [address] [place] [address] Performed By: #### 2 4344-4 ####[facility] LABCLIA [id number] [place] [address] [place] Body temperature 99.14 [degF] Normal [facility] Comment on above: Order Comment: Speci men Type: VENOUS BLOOD SPECIMENOrdering Facility: [facility] Address: [address] [place] [address] Performed By: #### 2 4344-4 ####[facility] LABCLIA [id number] [place] [address] [place] Calcium.ionized (Bld) [Mass/Vol] 1.19 mmol/L Normal 1.08-1.30 [facility] Comment on above: Order Comment: Speci men Type: VENOUS BLOOD SPECIMENOrdering Facility: [facility] Address: [address] [place] [address] Performed By: #### 2 4344-4 ####[facility] LABCLIA [id number] [place] [address] [place] Calcium.ionized adjusted to pH 7.4 (BldA) [Moles/Vol] 1.16 mmol/L Normal 1.08-1.30 [facility] Comment on above: Order Comment: Speci men Type: VENOUS BLOOD SPECIMENOrdering Facility: [facility] Address: [address] [place] [address] Performed By: #### 2 4344-4 ####[facility] LABIA [id number] [place] [address] [place] Carboxyhemoglobin (BldV) [Mass fraction] 1.2 % Normal 0.0-2.0 [facility] Comment on above: Order Comment: Speci men Type: VENOUS BLOOD SPECIMENOrdering Facility: [facility] Address: [address] [place] [address] Result Comment: Carb oxyhemoglobin Reference Range for Smokers: 2.0-8.0% Performed By: #### 2 4344-4 ####[facility] LABCLIA [id number] [place] [address] [place] CO2 (BldV) [Partial pressure] 56 mm[Hg] High 42-55 [facility] Comment on above: Order Comment: Speci men Type: VENOUS BLOOD SPECIMENOrdering Facility: [facility] Address: [address] [place] [address] Performed By: #### 2 4344-4 ####[facility] LABCLIA [id number] [place] [address] [place] CO2 adjusted to patient's actual temperature (BldV) [Partial pressure] 57 mmHg High 42-55 [facility] Comment on above: Order Comment: Speci men Type: VENOUS BLOOD SPECIMENOrdering Facility: [facility] Address: [address] [place] [address] Performed By: #### 2 4344-4 ####[facility] LABCLIA [id number] [facility] [address] [place] [address] [place] Glucose [Mass/Vol] 142 mg/dL High 60-105 [facility] Comment on above: Order Comment: Speci men Type: VENOUS BLOOD SPECIMENOrdering Facility: [facility] Address: [address] [place] [address] Performed By: #### 2 4344-4 ####[facility] LABCLIA [id number] [facility] [address] [place] [address] [place] HCO3 (Bld) [Moles/Vol] 30 mmol/L High 24-28 [facility] Comment on above: Order Comment: Speci men Type: VENOUS BLOOD SPECIMENOrdering Facility: [facility] Address: [address] [place] [address] Performed By: #### 2 4344-4 ####[facility] LABCLIA [id number] [facility] [address], [facility] [place] Hematocrit (Bld) [Volume fraction] 22.0 % Low 39.0-51.0 [facility] Comment on above: Order Comment: Speci men Type: VENOUS BLOOD SPECIMENOrdering Facility: [facility] Address: [address] [place], [place] [address] Performed By: #### 2 4344-4 ####[facility] LABCLIA [id number] [facility] [address] [place] [address] [place] Hemoglobin (Bld) [Mass/Vol] 7.0 g/dL Low 13.0-17.0 [facility] Comment on above: Order Comment: Speci men Type: VENOUS BLOOD SPECIMENOrdering Facility: [facility] Address: [address] [place], [place] [address] Performed By: #### 2 4344-4 ####[facility] LABCLIA [id number] [facility] [id number] [place] Lactate [Moles/Vol] 1.0 mmol/L Normal 0.5-2.2 [facility] Comment on above: Order Comment: Speci men Type: VENOUS BLOOD SPECIMENOrdering Facility: [facility] Address: [address] [place] [address] Performed By: #### 2 4344-4 ####[facility] LABCLIA [id number] [place] [address] [place] LITERS 3 Liters/min Normal [facility] Comment on above: Order Comment: Speci men Type: VENOUS BLOOD SPECIMENOrdering Facility: [facility] Address: [address] [place] [address] Performed By: #### 2 4344-4 ####[facility] LABCLIA [id number] [place] [address] [place] Methemoglobin (Bld) [Mass fraction] 1.2 % Normal 0.0-1.5 [facility] Comment on above: Order Comment: Speci men Type: VENOUS BLOOD SPECIMENOrdering Facility: [facility] Address: [address] [place] [address] Performed By: #### 2 4344-4 ####[facility] LABCLIA [id number] [place] [address] [place] O2 THERAPY [place] = Nasal Cannula Normal [facility] Comment on above: Order Comment: Speci men Type: VENOUS BLOOD SPECIMENOrdering Facility: [facility] Address: [address] [place] [address] Performed By: #### 2 4344-4 ####[facility] LABCLIA [id number] [place] [id number] [place] Oxygen (BldV) [Partial pressure] 41 mm[Hg] Normal 35-45 [facility] Comment on above: Order Comment: Speci men Type: VENOUS BLOOD SPECIMENOrdering Facility: [facility] Address: [address] [place], [place] [address] Performed By: #### 2 4344-4 ####[facility] LABCLIA [id number] [address] [address] [place] Oxygen adjusted to patient's actual temperature (BldV) [Partial pressure] 42 mmHg Normal 35-45 [facility] Comment on above: Order Comment: Speci men Type: VENOUS BLOOD SPECIMENOrdering Facility: [facility] Address: [address] [place] [address] Performed By: #### 2 4344-4 ####[facility] LABCLIA [id number] [place] [id number] [place] Oxygen saturation in Venous blood 66 % Normal 60-85 [facility] Comment on above: Order Comment: Speci men Type: VENOUS BLOOD SPECIMENOrdering Facility: [facility] Address: [address] [place] [address] Performed By: #### 2 4344-4 ####[facility] LABCLIA [id number] [place] [id number] [place] Oxyhemoglobin (BldV) [Mass fraction] 65 % Normal 60-85 [facility] Comment on above: Order Comment: Speci men Type: VENOUS BLOOD SPECIMENOrdering Facility: [facility] Address: [address] [place] [address] Performed By: #### 2 4344-4 ####[facility] LABCLIA [id number] [place] [id number] [place] pH (BldV) 7.35 [pH] Normal 7.32-7.42 [facility] Comment on above: Order Comment: Speci men Type: VENOUS BLOOD SPECIMENOrdering Facility: [facility] Address: [address] [place], [place] [address] Performed By: #### 2 4344-4 ####[facility] LABCLIA [id number] [place] [id number] [place] pH adjusted to patient's actual temperature (BldV) 7.34 Normal 7.32-7.42 [facility] Comment on above: Order Comment: Speci men Type: VENOUS BLOOD SPECIMENOrdering Facility: [facility] Address: [address] [place] [address] Performed By: #### 2 4344-4 ####[facility] LABCLIA [id number] [place] [address] [place] Potassium [Moles/Vol] 4.6 mmol/L Normal 3.5-5.0 [facility] Comment on above: Order Comment: Speci men Type: VENOUS BLOOD SPECIMENOrdering Facility: [facility] Address: [address] [place] [address] Performed By: #### 2 4344-4 ####[facility] LABCLIA [id number] [place] [address] [place] Sodium [Moles/Vol] 133 mmol/L Low 136-144 [facility] Comment on above: Order Comment: Speci men Type: VENOUS BLOOD SPECIMENOrdering Facility: [facility] Address: [address] [place] [address] Performed By: #### 2 4344-4 ####[facility] LABCLIA [id number] [place] [address] [place] Base excess Calc (BldV) [Moles/Vol] 4 mmol/L High 0-2 [facility] Comment on above: Order Comment: Speci men Type: VENOUS BLOOD SPECIMENOrdering Facility: [facility] Address: [address] [place] [address] Performed By: #### 2 4344-4 ####[facility] LABCLIA [id number] [place] [address] [place] Calcium.ionized adjusted to pH 7.4 (BldA) [Moles/Vol] 1.17 mmol/L Normal 1.08-1.30 [facility] Comment on above: Order Comment: Speci men Type: VENOUS BLOOD SPECIMENOrdering Facility: [facility] Address: [address] [place] [address] Performed By: #### 2 4344-4 ####[facility] LABCLIA [id number] [address] [address] [place] Carboxyhemoglobin (BldV) [Mass fraction] 1.1 % Normal 0.0-2.0 [facility] Comment on above: Order Comment: Speci men Type: VENOUS BLOOD SPECIMENOrdering Facility: [facility] Address: [address] [place], [place] [address] Result Comment: Carb oxyhemoglobin Reference Range for Smokers: 2.0-8.0% Performed By: #### 2 4344-4 ####[facility] LABCLIA [id number] [address] [place] [address] [place] CO2 (BldV) [Partial pressure] 49 mm[Hg] Normal 42-55 [facility] Comment on above: Order Comment: Speci men Type: VENOUS BLOOD SPECIMENOrdering Facility: [facility] Address: [address] [place], [place] [address] Performed By: #### 2 4344-4 ####[facility] LABCLIA [id number] [address] [address] [place] CO2 adjusted to patient's actual temperature (BldV) [Partial pressure] 49 mmHg Normal 42-55 [facility] Comment on above: Order Comment: Speci men Type: VENOUS BLOOD SPECIMENOrdering Facility: [facility] Address: [address] [place] [address] Performed By: #### 2 4344-4 ####[facility] LABCLIA [id number] [address] [address] [place] Glucose [Mass/Vol] 230 mg/dL High 60-105 [facility] Comment on above: Order Comment: Speci men Type: VENOUS BLOOD SPECIMENOrdering Facility: [facility] Address: [address] [place], [place] [address] Performed By: #### 2 4344-4 ####[facility] LABCLIA [id number] [address] [address] [place] Hematocrit (Bld) [Volume fraction] 23.8 % Low 39.0-51.0 [facility] Comment on above: Order Comment: Speci men Type: VENOUS BLOOD SPECIMENOrdering Facility: [facility] Address: [address] [place] [address] Performed By: #### 2 4344-4 ####[facility] LABIA [id number] [place] [id number] [place] Hemoglobin (Bld) [Mass/Vol] 7.6 g/dL Low 13.0-17.0 [facility] Comment on above: Order Comment: Speci men Type: VENOUS BLOOD SPECIMENOrdering Facility: [facility] Address: [address] [place] [address] Performed By: #### 2 4344-4 ####[facility] LABIA [id number] [place] [id number] [place] Methemoglobin (Bld) [Mass fraction] 1.2 % Normal 0.0-1.5 [facility] Comment on above: Order Comment: Speci men Type: VENOUS BLOOD SPECIMENOrdering Facility: [facility] Address: [address] [place] [address] Performed By: #### 2 4344-4 ####[facility] LABIA [id number] [address] [address] [place] Oxygen (BldV) [Partial pressure] 43 mm[Hg] Normal 35-45 [facility] Comment on above: Order Comment: Speci men Type: VENOUS BLOOD SPECIMENOrdering Facility: [facility] Address: [address] [place], [place] [address] Performed By: #### 2 4344-4 ####[facility] LABIA [id number] [place] [id number] [place] Oxygen adjusted to patient's actual temperature (BldV) [Partial pressure] 42 mmHg Normal 35-45 [facility] Comment on above: Order Comment: Speci men Type: VENOUS BLOOD SPECIMENOrdering Facility: [facility] Address: [address] [place], [place] [address] Performed By: #### 2 4344-4 ####[facility] LABCLIA [id number] [address] [address] [place] Oxygen saturation in Venous blood 71 % Normal 60-85 [facility] Comment on above: Order Comment: Speci men Type: VENOUS BLOOD SPECIMENOrdering Facility: [facility] Address: [address] [place] [address] Performed By: #### 2 4344-4 ####[facility] LABCLIA [id number] [place] [id number] [place] Oxyhemoglobin (BldV) [Mass fraction] 70 % Normal 60-85 [facility] Comment on above: Order Comment: Speci men Type: VENOUS BLOOD SPECIMENOrdering Facility: [facility] Address: [address] [place], [place] [address] Performed By: #### 2 4344-4 ####[facility] LABCLIA [id number] [place] [id number] [place] pH (BldV) 7.38 [pH] Normal 7.32-7.42 [facility] Comment on above: Order Comment: Speci men Type: VENOUS BLOOD SPECIMENOrdering Facility: [facility] Address: [address] [place], [place] [address] Performed By: #### 2 4344-4 ####[facility] LABCLIA [id number] [place] [id number] [place] pH adjusted to patient's actual temperature (BldV) 7.39 Normal 7.32-7.42 [facility] Comment on above: Order Comment: Speci men Type: VENOUS BLOOD SPECIMENOrdering Facility: [facility] Address: [address] [place] [address] Performed By: #### 2 4344-4 ####[facility] LABCLIA [id number] [address] [address] [place] Potassium [Moles/Vol] 4.4 mmol/L Normal 3.5-5.0 [facility] Comment on above: Order Comment: Speci men Type: VENOUS BLOOD SPECIMENOrdering Facility: [facility] Address: [address] [place] [address] Performed By: #### 2 4344-4 ####[facility] LABCLIA [id number] [place] [id number] [place] Sodium [Moles/Vol] 134 mmol/L Low 136-144 [facility] Comment on above: Order Comment: Speci men Type: VENOUS BLOOD SPECIMENOrdering Facility: [facility] Address: [address] [place] [address] Performed By: #### 2 4344-4 ####[facility] LABCLIA [id number] [address] [address] [place] Base excess Calc (BldV) [Moles/Vol] 4 mmol/L High 0-2 [facility] Comment on above: Order Comment: Speci men Type: VENOUS BLOOD SPECIMENOrdering Facility: [facility] Address: [address] [place], [place] [address] Performed By: #### 2 4344-4 ####[facility] LABCLIA [id number] [address] [address] [place] Body temperature 98.6 [degF] Normal [facility] Comment on above: Order Comment: Speci men Type: VENOUS BLOOD SPECIMENOrdering Facility: [facility] Address: [address] [place], [place] [address] Performed By: #### 2 4344-4 ####[facility] LABCLIA [id number] [address] [address] [place] Calcium.ionized (Bld) [Mass/Vol] 1.17 mmol/L Normal 1.08-1.30 [facility] Comment on above: Order Comment: Speci men Type: VENOUS BLOOD SPECIMENOrdering Facility: [facility] Address: [address] [place] [address] Performed By: #### 2 4344-4 ####[facility] [id number] [place] [address] [place] Calcium.ionized adjusted to pH 7.4 (BldA) [Moles/Vol] 1.15 mmol/L Normal 1.08-1.30 [facility] Comment on above: Order Comment: Speci men Type: VENOUS BLOOD SPECIMENOrdering Facility: [facility] Address: [address] [place] [address] Performed By: #### 2 4344-4 ####[facility] [id number] [address] [place] [facility] Carboxyhemoglobin (BldV) [Mass fraction] 1.2 % Normal 0.0-2.0 [facility] Comment on above: Order Comment: Speci men Type: VENOUS BLOOD SPECIMENOrdering Facility: [facility] Address: [address] [place] [address] Result Comment: Carb oxyhemoglobin Reference Range for Smokers: 2.0-8.0% Performed By: #### 2 4344-4 ####[facility] [id number] [place] [address] [place] CO2 (BldV) [Partial pressure] 51 mm[Hg] Normal 42-55 [facility] Comment on above: Order Comment: Speci men Type: VENOUS BLOOD SPECIMENOrdering Facility: [facility] Address: [address] [place] [address] Performed By: #### 2 4344-4 ####[facility] LABIA [id number] [place] [address] [place] Glucose [Mass/Vol] 209 mg/dL High 60-105 [facility] Comment on above: Order Comment: Speci men Type: VENOUS BLOOD SPECIMENOrdering Facility: [facility] Address: [address] [place] [address] Performed By: #### 2 4344-4 ####[facility] LABCLIA [id number] [facility] [address] [address] [place] HCO3 (Bld) [Moles/Vol] 29 mmol/L High 24-28 [facility] Comment on above: Order Comment: Speci men Type: VENOUS BLOOD SPECIMENOrdering Facility: [facility] Address: [address] [place] [address] Performed By: #### 2 4344-4 ####[facility] LABIA [id number] [place] [address] [place] Hematocrit (Bld) [Volume fraction] 23.2 % Low 39.0-51.0 [facility] Comment on above: Order Comment: Speci men Type: VENOUS BLOOD SPECIMENOrdering Facility: [facility] Address: [address] [place] [address] Performed By: #### 2 4344-4 ####[facility] LABIA [id number] [place] [address] [place] Hemoglobin (Bld) [Mass/Vol] 7.4 g/dL Low 13.0-17.0 [facility] Comment on above: Order Comment: Speci men Type: VENOUS BLOOD SPECIMENOrdering Facility: [facility] Address: [address] [place] [address] Performed By: #### 2 4344-4 ####[facility] LABIA [id number] [place] [id number] [place] Lactate [Moles/Vol] 0.5 mmol/L Normal 0.5-2.2 [facility] Comment on above: Order Comment: Speci men Type: VENOUS BLOOD SPECIMENOrdering Facility: [facility] Address: [address] [place] [address] Performed By: #### 2 4344-4 ####[facility] LABCLIA [id number] [place] [id number] [place] LITERS 5 Liters/min Normal [facility] Comment on above: Order Comment: Speci men Type: VENOUS BLOOD SPECIMENOrdering Facility: [facility] Address: [address] [place] [id number] Performed By: #### 2 4344-4 ####[facility] LABCLIA [id number] [place] [id number] [place] Methemoglobin (Bld) [Mass fraction] 1.4 % Normal 0.0-1.5 [facility] Comment on above: Order Comment: Speci men Type: VENOUS BLOOD SPECIMENOrdering Facility: [facility] Address: [address] [place] [address] Performed By: #### 2 4344-4 ####[facility] LABIA [id number] [place] [id number] [place] O2 THERAPY [place] = Nasal Cannula Normal [facility] Comment on above: Order Comment: Speci men Type: VENOUS BLOOD SPECIMENOrdering Facility: [facility] Address: [address] [place], [place] [address] Performed By: #### 2 4344-4 ####[facility] LABCLIA [id number] [address] [address] [place] Oxygen (BldV) [Partial pressure] 40 mm[Hg] Normal 35-45 [facility] Comment on above: Order Comment: Speci men Type: VENOUS BLOOD SPECIMENOrdering Facility: [facility] Address: [address] [id number] Performed By: #### 2 4344-4 ####[facility] LABCLIA [id number] [address] [address] [place] Oxygen saturation in Venous blood 67 % Normal 60-85 [facility] Comment on above: Order Comment: Speci men Type: VENOUS BLOOD SPECIMENOrdering Facility: [facility] Address: [address] [place] [address] Performed By: #### 2 4344-4 ####[facility] LABCLIA [id number] [address] [place] [address] [place] Oxyhemoglobin (BldV) [Mass fraction] 66 % Normal 60-85 [facility] Comment on above: Order Comment: Speci men Type: VENOUS BLOOD SPECIMENOrdering Facility: [facility] Address: [address] [place] [address] Performed By: #### 2 4344-4 ####[facility] LABIA [id number] [address] [address] [place] pH (BldV) 7.37 [pH] Normal 7.32-7.42 [facility] Comment on above: Order Comment: Speci men Type: VENOUS BLOOD SPECIMENOrdering Facility: [facility] Address: [address] [place], [place] [address] Performed By: #### 2 4344-4 ####[facility] LABIA [id number] [address] [address] [place] Potassium [Moles/Vol] 4.5 mmol/L Normal 3.5-5.0 [facility] Comment on above: Order Comment: Speci men Type: VENOUS BLOOD SPECIMENOrdering Facility: [facility] Address: [address] [place] [address] Performed By: #### 2 4344-4 ####[facility] LABIA [id number] [address] [address] [place] Sodium [Moles/Vol] 134 mmol/L Low 136-144 [facility] Comment on above: Order Comment: Speci men Type: VENOUS BLOOD SPECIMENOrdering Facility: [facility] Address: [address] [place] [address] Performed By: #### 2 4344-4 ####[facility] LABIA [id number] [place] [address] [place] Glucose Fld-mCncon 5 Glucose (Body fld) [Mass/Vol] 217 mg/dL Normal See Comment [facility] Comment on above: Order Comment: Speci men Type: FLUID SPECIMENOrdering Facility: [facility] Address: [address] [place] [address] Result Comment: Syno vial fluid: Synovial fluid [...] document C49A. ANDREY Bright: Clinical Laboratory Standards [place]: 2007. Performed By: #### 2 344-0, 28015-3 ####[facility] LABIA [id number] [place] [address] [place] HEMATOCRIT, FLUIDon 10-25-19 25 HEMATOCRIT, FLUID 0.0 % Normal Reference range not available [facility] Comment on above: Order Comment: Speci men Type: SPECIMEN FROM PLEURA OBTAINED BY THORACENTESISOrdering Facility: [facility] Address: [address] [place] [address] Performed By: #### F LDHCT ####[facility] LABIA [id number] [place] [address] [place] HEMATOCRIT, FLUID TYPE Pleural Cavity, Right Normal [facility] Comment on above: Order Comment: Speci men Type: SPECIMEN FROM PLEURA OBTAINED BY THORACENTESISOrdering Facility: [facility] Address: [address] [place] [address] Performed By: #### F LDHCT ####[facility] LABIA [id number] [place] [address] [place] LDH Fld-cCncon 10-24-2024 LDH (Body fld) [Catalytic activity/Vol] 73 U/L Normal See Comment [facility] Comment on above: Order Comment: Speci men Type: SPECIMEN FROM PLEURA OBTAINED BY THORACENTESISOrdering Facility: [facility] Address: [address] [place] [address] Result Comment: Pleu ral fluids: Pleural fluid [...] document C49A. Deangelo PA: Clinical Laboratory Standards [place]: 2007.Reference: 2. Stephanie SALDAÑA, Tyron Bourne. Body [...] to 533. Performed By: #### 2 881-1, 04343-1, 2529-6, 1747-5 ####[facility] LABCLIA [id number] [place] [address] [place] LDH SerPl-cCncon 10-24-2024 LDH [Catalytic activity/Vol] 415 U/L High 135-225 [facility] Comment on above: Order Comment: Speci men Type: BLOOD SPECIMENOrdering Facility: [facility] Address: [address] [place] [address] Performed By: #### 2 532-0 ####[facility] LABCLIA [id number] [address] [place] [address] [place] LDH [Catalytic activity/Vol] 383 U/L High 135-225 [facility] Comment on above: Order Comment: Speci men Type: BLOOD SPECIMENOrdering Facility: [facility] Address: [address] [place] [address] Performed By: #### C YS, 2532-0 ####[facility] LABCLIA [id number] [place] [address] [place] MANUAL DIFFERENTIAL, BODY FL UIDon 10-24-2024 DIF TTL, BODY FLUID 100 cells counted Normal [facility] Comment on above: Order Comment: Speci men Type: SPECIMEN FROM PLEURA OBTAINED BY THORACENTESISOrdering Facility: [facility] Address: [address] [place] [address] Performed By: #### C CBF, [id number] ####[facility] LABCLIA [id number] [place] [address] [place] LYMPH%, BF 51 % High 18-36 [facility] Comment on above: Order Comment: Speci men Type: SPECIMEN FROM PLEURA OBTAINED BY THORACENTESISOrdering Facility: [facility] Address: [address] [place] [address] Performed By: #### C CBF, [id number] ####[facility] LABCLIA [id number] [place] [address] [place] MESO %, BF 2 % Normal 0-2 [facility] Comment on above: Order Comment: Speci men Type: SPECIMEN FROM PLEURA OBTAINED BY THORACENTESISOrdering Facility: [facility] Address: [address] [place] [address] Performed By: #### C CBF, [id number] ####[facility] LABCLIA [id number] [address], [facility] [place] MONOCYTES/MACROPHAGES %, BF 22 % Low 64-80 [facility] Comment on above: Order Comment: Speci men Type: SPECIMEN FROM PLEURA OBTAINED BY THORACENTESISOrdering Facility: [facility] Address: [address] [place] [address] Performed By: #### C CBF, [id number] ####[facility] LABCLIA [id number] [address] [place] [address] [place] NEUT%, BF 25 % High 0-1 [facility] Comment on above: Order Comment: Speci men Type: SPECIMEN FROM PLEURA OBTAINED BY THORACENTESISOrdering Facility: [facility] Address: [address] [place] [address] Performed By: #### C CBF, [id number] ####[facility] LABCLIA [id number] [address] [place] [address] [place] NT-proBNP [facility] 10-24 Natriuretic peptide.B prohormone N-Terminal [Mass/Vol] 79335 pg/mL High <125 [facility] Comment on above: Order Comment: Speci men Type: BLOOD SPECIMENOrdering Facility: [facility] Address: [address] [place] [address] Performed By: #### 2 4321-2, 99188-7 ####[facility] LABCLIA [id number] [address] [place] [address] [place] PATHOLOGIST INTERPRETATION C BC/DIFFon 10-24-2024 Feed Blender review Jose Carlos (Unsp spec) [Interp] No review performed. Normal [facility] Comment on above: Order Comment: Speci men Type: BLOOD SPECIMENOrdering Facility: [facility] Address: [address] [place] [address] Performed By: #### 5 7782-5, STFREV ####[facility] LABCLIA [id number] [address] [place] [address] [place] STAFF REVIEW, CBCDIF Normal [facility] Comment on above: Order Comment: Speci men Type: BLOOD SPECIMENOrdering Facility: [facility] Address: [address] [place] [address] Performed By: #### 5 7782-5, NESSA ####[facility] [id number] [place] [address] [place] PT panel Coag (PPP)on 2024 INR Coag (PPP) [Relative time] 1.2 {INR} Normal 0.9-1.3 [facility] Comment on above: Order Comment: Speci men Type: BLOOD SPECIMENOrdering Facility: [facility] Address: [address] [place] [address] Result Comment: Nettie min K Antagonist (VKA) Therapeutic Range: INR 2 to 3 (Target INR of 2.5)Note: For patients treated with VKA drugs, such as warfarin, the [place] [employer] 2012 Guideline recommends [...] al. Chest 2012, 141:7S-47SNishfelicia RA, et al. [facility] 2017, 70: 252-289 Performed By: #### 3 4528-0, 3216-08 ####[facility] [id number] [place] [id number] [place] PT Coag (PPP) [Time] 13.1 s High 9.7-13.0 [facility] Comment on above: Order Comment: Gini nowak Type: BLOOD SPECIMENOrdering Facility: [facility] Address: [address] [place] [address] Performed By: #### 3 4528-0, 3216-08 ####[facility] LABCLIA [id number] [place] [id number] [place] Prot Fld-mCncon 10-24-2024 Protein (Body fld) [Mass/Vol] 1.1 g/dL Normal See Comment [facility] Comment on above: Order Comment: Speci men Type: SPECIMEN FROM PLEURA OBTAINED BY THORACENTESISOrdering Facility: [facility] Address: [address] [place] [address] Result Comment: Sero us fluids: Effusions are [...] document C49A. ANDREY Bright: Clinical Laboratory Standards [place]: 2007. Performed By: #### 2 881-1, 04187-9, 2529-6, 1747-5 ####[facility] LABCLIA [id number] [place] [id number] [place] Prot SerPl-mCncon 10-24-2024 Protein [Mass/Vol] 5.2 g/dL Low 6.3-8.0 [facility] Comment on above: Order Comment: Speci men Type: BLOOD SPECIMENOrdering Facility: [facility] Address: [address] [place] [address] Performed By: #### 1 751-7, 2885-2, 2093-3 ####[facility] LABCLIA [id number] [place] [id number] [place] STAPHYLOCOCCUS AUREUS AND MR SA SCREEN, PCR, NASALon 10-24-2024 S. aureus and MRSA panel GENEVA+probe (Nose) Not detected Normal Not Detected [facility] Comment on above: Order Comment: Speci men Type: SWABOrdering Facility: [facility] Address: [address] [place] [address] Performed By: #### S APCR ####[facility] LABCLIA [id number] [place] [address] [place] Trigl Fld-mCncon 10-24-2024 Triglyceride (Body fld) [Mass/Vol] 14 mg/dL Normal [facility] Comment on above: Order Comment: Speci men Type: FLUID SPECIMENOrdering Facility: [facility] Address: [address] [place] [address] Result Comment: Syno vial fluids: Synovial fluid [...] document C49A. ANDREY Bright: Clinical Laboratory Standards [place]; 2007. Performed By: #### 2 344-0, 52159-8 ####[facility] LABCLIA [id number] [place] [address] [place] Triglyceride (Body fld) [Mas s/Vol]on 10-24-2024 Fluid Nom (Body fld) Pleural Cavity, Right Normal [facility] Comment on above: Order Comment: Speci men Type: FLUID SPECIMENOrdering Facility: [facility] Address: [address] [place] [address] Performed By: #### 2 344-0, 78784-6 ####[facility] LABCLIA [id number] [place] [id number] [place] XR CHEST 1V FRONTAL PORTon 0 10-24-2024 XR CHEST 1V FRONTAL PORT Normal [facility] XR CHEST 1V FRONTAL PORT Normal [facility] aPTT PPPon 10-24-2024 aPTT Coag (PPP) [Time] 29.5 s Normal 23.0-32.4 [facility] Comment on above: Order Comment: Speci men Type: BLOOD SPECIMENOrdering Facility: [facility] Address: [address] [place] [address] Performed By: #### 3 217-7, 77537-0 ####[facility] LABCLIA [id number] [place] [address] [place] pH Fldon 10-24-2024 Fluid Nom (Body fld) Pleural Cavity, Right Normal [facility] Comment on above: Order Comment: Speci men Type: SPECIMEN FROM PLEURA OBTAINED BY THORACENTESISOrdering Facility: [facility] Address: [address] [place] [address] Performed By: #### 2 748-2 ####[facility] LABCLIA [id number] [place] [address] [place] Performed By: #### 2 881-1, 77876-0, 2529-6, 1747-5 ####[facility] LABCLIA [id number] [place] [address] [place] pH (Body fld) 8.0 [pH] Normal [facility] Comment on above: Order Comment: Speci men Type: SPECIMEN FROM PLEURA OBTAINED BY THORACENTESISOrdering Facility: [facility] Address: [address] [place] [address] Result Comment: No r eference range has been established for this specimen type.This test was developed, and its performance characteristics determined by the [facility] Department of Pathology and Laboratory Medicine. It has not been cleared or approved by the FDA. The [facility] Department of Pathology and Laboratory Medicine is regulated under CLIA as qualified to perform high-complexity testing. This test is used for clinical purposes. It should not be regarded as investigational or for research. Performed By: #### 2 748-2 ####[facility] LABCLIA [id number] [place] [address] [place] ANES POSTPROC EVALon 025 ANES POSTPROC EVAL Normal [facility] ANES PRE-OPon 10-23-2024 ANES PRE-OP Normal [facility] ARTERIAL BLOOD GASESon 10-23 Base excess Calc (Bld) [Moles/Vol] 3 mmol/L High 0-2 [facility] Comment on above: Order Comment: Speci men Type: ARTERIAL BLOOD SPECIMENOrdering Facility: [facility] Address: [address] [place] [address] Performed By: #### A LLBG ####[facility] LABCLIA [id number] [place] [address] [place] Body temperature 98.6 [degF] Normal [facility] Comment on above: Order Comment: Speci men Type: ARTERIAL BLOOD SPECIMENOrdering Facility: [facility] Address: [address] [place] [address] Performed By: #### A LLBG ####[facility] LABCLIA [id number] [place] [address] [place] Order Comment: Speci men Type: VENOUS BLOOD SPECIMENOrdering Facility: [facility] Address: [address] [place] [address] Performed By: #### 2 4344-4 ####[facility] LABCLIA [id number] [place] [address] [place] Calcium.ionized (Bld) [Mass/Vol] 1.14 mmol/L Normal 1.08-1.30 [facility] Comment on above: Order Comment: Speci men Type: ARTERIAL BLOOD SPECIMENOrdering Facility: [facility] Address: [address] [place] [address] Performed By: #### A LLBG ####[facility] LABIA [id number] [place] [address] [place] Calcium.ionized adjusted to pH 7.4 (BldA) [Moles/Vol] 1.16 mmol/L Normal 1.08-1.30 [facility] Comment on above: Order Comment: Speci men Type: ARTERIAL BLOOD SPECIMENOrdering Facility: [facility] Address: [address] [place] [address] Performed By: #### A LLBG ####[facility] LABIA [id number] [place] [address] [place] Carboxyhemoglobin (BldA) [Mass fraction] 1.4 % Normal 0.0-2.0 [facility] Comment on above: Order Comment: Speci men Type: ARTERIAL BLOOD SPECIMENOrdering Facility: [facility] Address: [address] [place] [address] Result Comment: Carb oxyhemoglobin Reference Range for Smokers: 2.0-8.0% Performed By: #### A LLBG ####[facility] LABIA [id number] [place] [address] [place] CO2 (Bld) [Partial pressure] 40 mm Hg Normal 36-46 [facility] Comment on above: Order Comment: Speci men Type: ARTERIAL BLOOD SPECIMENOrdering Facility: [facility] Address: [address] [place] [address] Performed By: #### A LLBG ####[facility] LABIA [id number] [place] [address] [place] Glucose [Mass/Vol] 158 mg/dL High 60-105 [facility] Comment on above: Order Comment: Speci men Type: ARTERIAL BLOOD SPECIMENOrdering Facility: [facility] Address: [address] [place] [address] Performed By: #### A LLBG ####[facility] LABCLIA [id number] [address] [place] [address] [place] HCO3 (Bld) [Moles/Vol] 26 mmol/L Normal 22-26 [facility] Comment on above: Order Comment: Speci men Type: ARTERIAL BLOOD SPECIMENOrdering Facility: [facility] Address: [address] [place] [address] Performed By: #### A LLBG ####[facility] LABCLIA [id number] [place] [address] [place] Hematocrit (Bld) [Volume fraction] 23.8 % Low 39.0-51.0 [facility] Comment on above: Order Comment: Speci men Type: ARTERIAL BLOOD SPECIMENOrdering Facility: [facility] Address: [address] [place] [address] Performed By: #### A LLBG ####[facility] LABCLIA [id number] [place] [address] [place] Hemoglobin (Bld) [Mass/Vol] 7.6 g/dL Low 13.0-17.0 [facility] Comment on above: Order Comment: Speci men Type: ARTERIAL BLOOD SPECIMENOrdering Facility: [facility] Address: [address] [place] [address] Performed By: #### A LLBG ####[facility] LABCLIA [id number] [place] [address] [place] Lactate [Moles/Vol] 1.4 mmol/L Normal 0.5-2.2 [facility] Comment on above: Order Comment: Speci men Type: ARTERIAL BLOOD SPECIMENOrdering Facility: [facility] Address: [address] [place] [address] Performed By: #### A LLBG ####[facility] LABCLIA [id number] [place] [id number] [place] LITERS 8 Liters/min Normal [facility] Comment on above: Order Comment: Speci men Type: ARTERIAL BLOOD SPECIMENOrdering Facility: [facility] Address: [address] [place], [place] [address] Performed By: #### A LLBG ####[facility] LABCLIA [id number] [address] [place] [address] [place] Methemoglobin (Bld) [Mass fraction] 1.1 % Normal 0.0-1.5 [facility] Comment on above: Order Comment: Speci men Type: ARTERIAL BLOOD SPECIMENOrdering Facility: [facility] Address: [address] [place] [address] Performed By: #### A LLBG ####[facility] LABCLIA [id number] [address] [place] [address] [place] O2 THERAPY SFM=Simple Face Mask Normal [facility] Comment on above: Order Comment: Speci men Type: ARTERIAL BLOOD SPECIMENOrdering Facility: [facility] Address: [address] [place] [address] Performed By: #### A LLBG ####[facility] LABCLIA [id number] [address] [place] [address] [place] Order Comment: Speci men Type: VENOUS BLOOD SPECIMENOrdering Facility: [facility] Address: [address] [place] [address] Performed By: #### 2 4344-4 ####[facility] LABCLIA [id number] [address] [place] [address] [place] Oxygen (Bld) [Partial pressure] 141 mm Hg High 85-95 [facility] Comment on above: Order Comment: Speci men Type: ARTERIAL BLOOD SPECIMENOrdering Facility: [facility] Address: [address] [place], [place] [address] Performed By: #### A LLBG ####[facility] LABCLIA [id number] [address] [place] [address] [place] Oxyhemoglobin (BldA) [Mass fraction] 97 % Normal 95-98 [facility] Comment on above: Order Comment: Speci men Type: ARTERIAL BLOOD SPECIMENOrdering Facility: [facility] Address: [address] [place] [address] Performed By: #### A LLBG ####[facility] LABCLIA [id number] [address] [address] [place] pH (Bld) 7.44 [pH] Normal 7.35-7.45 [facility] Comment on above: Order Comment: Speci men Type: ARTERIAL BLOOD SPECIMENOrdering Facility: [facility] Address: [address] [place] [address] Performed By: #### A LLBG ####[facility] LABCLIA [id number] [place] [address] [place] Potassium [Moles/Vol] 4.2 mmol/L Normal 3.5-5.0 [facility] Comment on above: Order Comment: Speci men Type: ARTERIAL BLOOD SPECIMENOrdering Facility: [facility] Address: [address] [place] [address] Performed By: #### A LLBG ####[facility] LABCLIA [id number] [place] [address] [place] Sodium [Moles/Vol] 133 mmol/L Low 136-144 [facility] Comment on above: Order Comment: Speci men Type: ARTERIAL BLOOD SPECIMENOrdering Facility: [facility] Address: [address] [place] [address] Performed By: #### A LLBG ####[facility] LABCLIA [id number] [address] [address] [place] Base excess Calc (Bld) [Moles/Vol] 5 mmol/L High 0-2 [facility] Comment on above: Order Comment: Speci men Type: ARTERIAL BLOOD SPECIMENOrdering Facility: [facility] Address: [address] [place], [place] [address] Performed By: #### A LLBG ####[facility] LABCLIA [id number] [place] [address] [place] Calcium.ionized (Bld) [Mass/Vol] 1.18 mmol/L Normal 1.08-1.30 [facility] Comment on above: Order Comment: Speci men Type: ARTERIAL BLOOD SPECIMENOrdering Facility: [facility] Address: [address] [place] [address] Performed By: #### A LLBG ####[facility] LABIA [id number] [place] [address] [place] Calcium.ionized adjusted to pH 7.4 (BldA) [Moles/Vol] 1.20 mmol/L Normal 1.08-1.30 [facility] Comment on above: Order Comment: Speci men Type: ARTERIAL BLOOD SPECIMENOrdering Facility: [facility] Address: [address] [place] [address] Performed By: #### A LLBG ####[facility] LABIA [id number] [place] [address] [place] Carboxyhemoglobin (BldA) [Mass fraction] 1.7 % Normal 0.0-2.0 [facility] Comment on above: Order Comment: Speci men Type: ARTERIAL BLOOD SPECIMENOrdering Facility: [facility] Address: [address] [place] [address] Result Comment: Carb oxyhemoglobin Reference Range for Smokers: 2.0-8.0% Performed By: #### A LLBG ####[facility] LABIA [id number] [place] [address] [place] CO2 (Bld) [Partial pressure] 43 mm Hg Normal 36-46 [facility] Comment on above: Order Comment: Speci men Type: ARTERIAL BLOOD SPECIMENOrdering Facility: [facility] Address: [address] [place] [address] Performed By: #### A LLBG ####[facility] LABIA [id number] [place] [address] [place] CO2 adjusted to patient's actual temperature (Bld) [Partial pressure] 43 mmHg Normal 36-46 [facility] Comment on above: Order Comment: Speci men Type: ARTERIAL BLOOD SPECIMENOrdering Facility: [facility] COMPANY Address: [address] [place] [address] Performed By: #### A LLBG ####[facility] LABCLIA [id number] [place] [address] [place] Glucose [Mass/Vol] 113 mg/dL High 60-105 [facility] Comment on above: Order Comment: Speci men Type: ARTERIAL BLOOD SPECIMENOrdering Facility: [facility] Address: [address] [place] [address] Performed By: #### A LLBG ####[facility] LABCLIA [id number] [address] [place] Hematocrit (Bld) [Volume fraction] 25.7 % Low 39.0-51.0 [facility] Comment on above: Order Comment: Speci men Type: ARTERIAL BLOOD SPECIMENOrdering Facility: [facility] Address: [address] [place] [address] Performed By: #### A LLBG ####[facility] LABCLIA [id number] [address] [place] Hemoglobin (Bld) [Mass/Vol] 8.2 g/dL Low 13.0-17.0 [facility] Comment on above: Order Comment: Speci men Type: ARTERIAL BLOOD SPECIMENOrdering Facility: [facility] Address: [address] [place] [address] Performed By: #### A LLBG ####[facility] LABCLIA [id number] [place] [address] [place] Lactate [Moles/Vol] 0.6 mmol/L Normal 0.5-2.2 [facility] Comment on above: Order Comment: Speci men Type: ARTERIAL BLOOD SPECIMENOrdering Facility: [facility] Address: [address] [id number] Performed By: #### A LLBG ####[facility] LABCLIA [id number] [address] [place] [address] [place] Methemoglobin (Bld) [Mass fraction] 1.1 % Normal 0.0-1.5 [facility] Comment on above: Order Comment: Speci men Type: ARTERIAL BLOOD SPECIMENOrdering Facility: [facility] Address: [address] [place] [address] Performed By: #### A LLBG ####[facility] LABCLIA [id number] [address] [place] [address] [place] Oxygen (Bld) [Partial pressure] 73 mm Hg Low 85-95 [facility] Comment on above: Order Comment: Speci men Type: ARTERIAL BLOOD SPECIMENOrdering Facility: [facility] Address: [address] [place] [address] Performed By: #### A LLBG ####[facility] LABCLIA [id number] [address] [place] [address] [place] Oxygen adjusted to patient's actual temperature (Bld) [Partial pressure] 72 mmHg Low 85-95 [facility] Comment on above: Order Comment: Speci men Type: ARTERIAL BLOOD SPECIMENOrdering Facility: [facility] Address: [address] [place] [address] Performed By: #### A LLBG ####[facility] LABCLIA [id number] [address] [place] [address] [place] Oxyhemoglobin (BldA) [Mass fraction] 92 % Low 95-98 [facility] Comment on above: Order Comment: Speci men Type: ARTERIAL BLOOD SPECIMENOrdering Facility: [facility] Address: [address] [place], [place] [id number] Performed By: #### A LLBG ####[facility] LABCLIA [id number] [address] [place] [address] [place] pH (Bld) 7.45 [pH] Normal 7.35-7.45 [facility] Comment on above: Order Comment: Speci men Type: ARTERIAL BLOOD SPECIMENOrdering Facility: [facility] Address: [address] [place] [address] Performed By: #### A LLBG ####[facility] LABCLIA [id number] [place] [address] [place] pH adjusted to patient's actual temperature (Bld) 7.45 Normal 7.35-7.45 [facility] Comment on above: Order Comment: Speci men Type: ARTERIAL BLOOD SPECIMENOrdering Facility: [facility] Address: [address] [place] [address] Performed By: #### A LLBG ####[facility] LABIA [id number] [place] [address] [place] Potassium [Moles/Vol] 4.5 mmol/L Normal 3.5-5.0 [facility] Comment on above: Order Comment: Speci men Type: ARTERIAL BLOOD SPECIMENOrdering Facility: [facility] Address: [address] [place] [address] Performed By: #### A LLBG ####[facility] LABCLIA [id number] [place] [address] [place] Sodium [Moles/Vol] 134 mmol/L Low 136-144 [facility] Comment on above: Order Comment: Speci men Type: ARTERIAL BLOOD SPECIMENOrdering Facility: [facility] Address: [address] [place] [address] Performed By: #### A LLBG ####[facility] LABCLIA [id number] [place] [address] [place] Base excess Calc (Bld) [Moles/Vol] 6 mmol/L High 0-2 [facility] Comment on above: Order Comment: Speci men Type: ARTERIAL BLOOD SPECIMENOrdering Facility: [facility] Address: [address] [place] [address] Performed By: #### A LLBG ####[facility] [id number] [place] [address] [place] Calcium.ionized (Bld) [Mass/Vol] 1.17 mmol/L Normal 1.08-1.30 [facility] Comment on above: Order Comment: Speci men Type: ARTERIAL BLOOD SPECIMENOrdering Facility: [facility] Address: [address] [place] [address] Performed By: #### A LLBG ####[facility] [id number] [place] [address] [place] Calcium.ionized adjusted to pH 7.4 (BldA) [Moles/Vol] 1.21 mmol/L Normal 1.08-1.30 [facility] Comment on above: Order Comment: Speci men Type: ARTERIAL BLOOD SPECIMENOrdering Facility: [facility] Address: [address] [place] [address] Performed By: #### A LLBG ####[facility] [id number] [place] [address] [place] Carboxyhemoglobin (BldA) [Mass fraction] 1.5 % Normal 0.0-2.0 [facility] Comment on above: Order Comment: Speci men Type: ARTERIAL BLOOD SPECIMENOrdering Facility: [facility] Address: [address] [place] [address] Result Comment: Carb oxyhemoglobin Reference Range for Smokers: 2.0-8.0% Performed By: #### A LLBG ####[facility] [id number] [place] [address] [place] CO2 (Bld) [Partial pressure] 42 mm Hg Normal 36-46 [facility] Comment on above: Order Comment: Speci men Type: ARTERIAL BLOOD SPECIMENOrdering Facility: [facility] Address: [address] [place] [address] Performed By: #### A LLBG ####[facility] LABCLIA [id number] [place] [address] [place] Hematocrit (Bld) [Volume fraction] 26.3 % Low 39.0-51.0 [facility] Comment on above: Order Comment: Speci men Type: ARTERIAL BLOOD SPECIMENOrdering Facility: [facility] Address: [address] [place] [address] Performed By: #### A LLBG ####[facility] LABIA [id number] [place] [address] [place] Hemoglobin (Bld) [Mass/Vol] 8.5 g/dL Low 13.0-17.0 [facility] Comment on above: Order Comment: Speci men Type: ARTERIAL BLOOD SPECIMENOrdering Facility: [facility] Address: [address] [place] [address] Performed By: #### A LLBG ####[facility] LABIA [id number] [place] [address] [place] Lactate [Moles/Vol] 0.6 mmol/L Normal 0.5-2.2 [facility] Comment on above: Order Comment: Speci men Type: ARTERIAL BLOOD SPECIMENOrdering Facility: [facility] Address: [address] [place] [address] Performed By: #### A LLBG ####[facility] LABIA [id number] [place] [address] [place] Methemoglobin (Bld) [Mass fraction] 0.4 % Normal 0.0-1.5 [facility] Comment on above: Order Comment: Speci men Type: ARTERIAL BLOOD SPECIMENOrdering Facility: [facility] Address: [address] [place] [address] Performed By: #### A LLBG ####[facility] LABIA [id number] [place] [address] [place] Oxygen (Bld) [Partial pressure] 126 mm Hg High 85-95 [facility] Comment on above: Order Comment: Speci men Type: ARTERIAL BLOOD SPECIMENOrdering Facility: [facility] Address: [address] [place] [address] Performed By: #### A LLBG ####[facility] LABCLIA [id number] [address] [address] [place] Oxyhemoglobin (BldA) [Mass fraction] 98 % Normal 95-98 [facility] Comment on above: Order Comment: Speci men Type: ARTERIAL BLOOD SPECIMENOrdering Facility: [facility] Address: [address] [place] [address] Performed By: #### A LLBG ####[facility] LABCLIA [id number] [place] [id number] [place] pH (Bld) 7.46 [pH] High 7.35-7.45 [facility] Comment on above: Order Comment: Speci men Type: ARTERIAL BLOOD SPECIMENOrdering Facility: [facility] Address: [address] [place] [address] Performed By: #### A LLBG ####[facility] LABIA [id number] [place] [id number] [place] Potassium [Moles/Vol] 4.6 mmol/L Normal 3.5-5.0 [facility] Comment on above: Order Comment: Speci men Type: ARTERIAL BLOOD SPECIMENOrdering Facility: [facility] Address: [address] [place] [address] Performed By: #### A LLBG ####[facility] LABCLIA [id number] [place] [id number] [place] Sodium [Moles/Vol] 133 mmol/L Low 136-144 [facility] Comment on above: Order Comment: Speci men Type: ARTERIAL BLOOD SPECIMENOrdering Facility: [facility] Address: [address] [place] [address] Performed By: #### A LLBG ####[facility] LABCLIA [id number] [place] [address] [place] Base excess Calc (Bld) [Moles/Vol] 6 mmol/L High 0-2 [facility] Comment on above: Order Comment: Speci men Type: ARTERIAL BLOOD SPECIMENOrdering Facility: [facility] Address: [address] [place] [address] Performed By: #### A LLBG ####[facility] LABIA [id number] [place] [address] [place] Body temperature 98.6 [degF] Normal [facility] Comment on above: Order Comment: Speci men Type: ARTERIAL BLOOD SPECIMENOrdering Facility: [facility] Address: [address] [place] [address] Performed By: #### A LLBG ####[facility] LABIA [id number] [place] [address] [place] Calcium.ionized (Bld) [Mass/Vol] 1.16 mmol/L Normal 1.08-1.30 [facility] Comment on above: Order Comment: Speci men Type: ARTERIAL BLOOD SPECIMENOrdering Facility: [facility] Address: [address] [place] [address] Performed By: #### A LLBG ####[facility] LABIA [id number] [place] [address] [place] Calcium.ionized adjusted to pH 7.4 (BldA) [Moles/Vol] 1.18 mmol/L Normal 1.08-1.30 [facility] Comment on above: Order Comment: Speci men Type: ARTERIAL BLOOD SPECIMENOrdering Facility: [facility] Address: [address] [place] [address] Performed By: #### A LLBG ####[facility] LABIA [id number] [place] [address] [place] Carboxyhemoglobin (BldA) [Mass fraction] 1.5 % Normal 0.0-2.0 [facility] Comment on above: Order Comment: Speci men Type: ARTERIAL BLOOD SPECIMENOrdering Facility: [facility] Address: [address] [place] [address] Result Comment: Carb oxyhemoglobin Reference Range for Smokers: 2.0-8.0% Performed By: #### A LLBG ####[facility] LABCLIA [id number] [place] [address] [place] CO2 (Bld) [Partial pressure] 47 mm Hg High 36-46 [facility] Comment on above: Order Comment: Speci men Type: ARTERIAL BLOOD SPECIMENOrdering Facility: [facility] Address: [address] [place] [address] Performed By: #### A LLBG ####[facility] LABCLIA [id number] [place] [address] [place] Glucose [Mass/Vol] 99 mg/dL Normal 60-105 [facility] Comment on above: Order Comment: Speci men Type: ARTERIAL BLOOD SPECIMENOrdering Facility: [facility] Address: [address] [place] [address] Performed By: #### A LLBG ####[facility] LABCLIA [id number] [place] [id number] [place] HCO3 (Bld) [Moles/Vol] 30 mmol/L High 22-26 [facility] Comment on above: Order Comment: Speci men Type: ARTERIAL BLOOD SPECIMENOrdering Facility: [facility] Address: [address] [place] [address] Performed By: #### A LLBG ####[facility] LABCLIA [id number] [place] [id number] [place] Hematocrit (Bld) [Volume fraction] 25.9 % Low 39.0-51.0 [facility] Comment on above: Order Comment: Speci men Type: ARTERIAL BLOOD SPECIMENOrdering Facility: [facility] Address: [address] [place] [address] Performed By: #### A LLBG ####[facility] LABCLIA [id number] [place] [address] [place] Hemoglobin (Bld) [Mass/Vol] 8.3 g/dL Low 13.0-17.0 [facility] Comment on above: Order Comment: Speci men Type: ARTERIAL BLOOD SPECIMENOrdering Facility: [facility] Address: [address] [place] [address] Performed By: #### A LLBG ####[facility] LABCLIA [id number] [place] [address] [place] Lactate [Moles/Vol] 0.8 mmol/L Normal 0.5-2.2 [facility] Comment on above: Order Comment: Speci men Type: ARTERIAL BLOOD SPECIMENOrdering Facility: [facility] Address: [address] [place] [address] Performed By: #### A LLBG ####[facility] LABIA [id number] [place] [address] [place] LITERS 3 Liters/min Normal [facility] Comment on above: Order Comment: Speci men Type: ARTERIAL BLOOD SPECIMENOrdering Facility: [facility] Address: [address] [place] [address] Performed By: #### A LLBG ####[facility] LABCLIA [id number] [place] [id number] [place] Methemoglobin (Bld) [Mass fraction] 0.8 % Normal 0.0-1.5 [facility] Comment on above: Order Comment: Speci men Type: ARTERIAL BLOOD SPECIMENOrdering Facility: [facility] Address: [address] [place] [address] Performed By: #### A LLBG ####[facility] LABCLIA [id number] [place] [id number] [place] O2 THERAPY NC = Nasal Cannula Normal [facility] Comment on above: Order Comment: Speci men Type: ARTERIAL BLOOD SPECIMENOrdering Facility: [facility] Address: [address] [place] [address] Performed By: #### A LLBG ####[facility] LABCLIA [id number] [place] [id number] [place] Oxygen (Bld) [Partial pressure] 99 mm Hg High 85-95 [facility] Comment on above: Order Comment: Speci men Type: ARTERIAL BLOOD SPECIMENOrdering Facility: [facility] Address: [address] [place] [address] Performed By: #### A LLBG ####[facility] LABCLIA [id number] [place] [id number] [place] Oxyhemoglobin (BldA) [Mass fraction] 96 % Normal 95-98 [facility] Comment on above: Order Comment: Speci men Type: ARTERIAL BLOOD SPECIMENOrdering Facility: [facility] Address: [address] [place] [address] Performed By: #### A LLBG ####[facility] LABCLIA [id number] [place] [address] [place] pH (Bld) 7.42 [pH] Normal 7.35-7.45 [facility] Comment on above: Order Comment: Speci men Type: ARTERIAL BLOOD SPECIMENOrdering Facility: [facility] Address: [address] [place] [address] Performed By: #### A LLBG ####[facility] LABIA [id number] [place] [id number] [place] Potassium [Moles/Vol] 4.7 mmol/L Normal 3.5-5.0 [facility] Comment on above: Order Comment: Speci men Type: ARTERIAL BLOOD SPECIMENOrdering Facility: [facility] Address: [address] [place] [address] Performed By: #### A LLBG ####[facility] LABCLIA [id number] [place] [address] [place] Sodium [Moles/Vol] 133 mmol/L Low 136-144 [facility] Comment on above: Order Comment: Speci men Type: ARTERIAL BLOOD SPECIMENOrdering Facility: [facility] Address: [address] [place] [address] Performed By: #### A LLBG ####[facility] LABCLIA [id number] [place] [address] [place] ARTERIAL BLOOD GASES WITH IO NIZED MAGNESIUMon 10-23-2024 Base excess Calc (Bld) [Moles/Vol] 4 mmol/L High 0-2 [facility] Comment on above: Order Comment: Speci men Type: ARTERIAL BLOOD SPECIMENOrdering Facility: [facility] Address: [address] [place] [address] Performed By: #### A LLMG ####[facility] [id number] [place] [address] [place] Calcium.ionized (Bld) [Mass/Vol] 1.16 mmol/L Normal 1.08-1.30 [facility] Comment on above: Order Comment: Speci men Type: ARTERIAL BLOOD SPECIMENOrdering Facility: [facility] Address: [address] [place] [address] Performed By: #### A LLMG ####[facility] LABCLIA [id number] [place] [address] [place] Calcium.ionized adjusted to pH 7.4 (BldA) [Moles/Vol] 1.19 mmol/L Normal 1.08-1.30 [facility] Comment on above: Order Comment: Speci men Type: ARTERIAL BLOOD SPECIMENOrdering Facility: [facility] Address: [address] [place] [address] Performed By: #### A LLMG ####[facility] LABCLIA [id number] [place] [address] [place] Carboxyhemoglobin (BldA) [Mass fraction] 1.5 % Normal 0.0-2.0 [facility] Comment on above: Order Comment: Speci men Type: ARTERIAL BLOOD SPECIMENOrdering Facility: [facility] Address: [address] [place] [address] Result Comment: Carb oxyhemoglobin Reference Range for Smokers: 2.0-8.0% Performed By: #### A LLMG ####[facility] LABCLIA [id number] [place] [address] [place] CO2 (Bld) [Partial pressure] 41 mm Hg Normal 36-46 [facility] Comment on above: Order Comment: Speci men Type: ARTERIAL BLOOD SPECIMENOrdering Facility: [facility] Address: [address] [place] [address] Performed By: #### A LLMG ####[facility] LABCLIA [id number] [place] [address] [place] CO2 adjusted to patient's actual temperature (Bld) [Partial pressure] 41 mmHg Normal 36-46 [facility] Comment on above: Order Comment: Speci men Type: ARTERIAL BLOOD SPECIMENOrdering Facility: [facility] Address: [address] [place] [address] Performed By: #### A LLMG ####[facility] LABCLIA [id number] [place] [address] [place] Glucose [Mass/Vol] 131 mg/dL High 60-105 [facility] Comment on above: Order Comment: Speci men Type: ARTERIAL BLOOD SPECIMENOrdering Facility: [facility] Address: [address] [place] [address] Performed By: #### A LLMG ####[facility] LABCLIA [id number] [place] [id number] [place] HCO3 (Bld) [Moles/Vol] 28 mmol/L High 22-26 [facility] Comment on above: Order Comment: Speci men Type: ARTERIAL BLOOD SPECIMENOrdering Facility: [facility] Address: [address] [place] [address] Performed By: #### A LLMG ####[facility] LABIA [id number] [place] [address] [place] Hematocrit (Bld) [Volume fraction] 26.4 % Low 39.0-51.0 [facility] Comment on above: Order Comment: Speci men Type: ARTERIAL BLOOD SPECIMENOrdering Facility: [facility] Address: [address] [place] [address] Performed By: #### A LLMG ####[facility] LABIA [id number] [place] [address] [place] Hemoglobin (Bld) [Mass/Vol] 8.5 g/dL Low 13.0-17.0 [facility] Comment on above: Order Comment: Speci men Type: ARTERIAL BLOOD SPECIMENOrdering Facility: [facility] Address: [address] [place] [address] Performed By: #### A LLMG ####[facility] LABIA [id number] [place] [address] [place] Lactate [Moles/Vol] 1.2 mmol/L Normal 0.5-2.2 [facility] Comment on above: Order Comment: Speci men Type: ARTERIAL BLOOD SPECIMENOrdering Facility: [facility] Address: [address] [place] [address] Performed By: #### A LLMG ####[facility] LABIA [id number] [place] [address] [place] Magnesium [Moles/Vol] 0.56 mmol/L Normal 0.45-0.60 [facility] Comment on above: Order Comment: Speci men Type: ARTERIAL BLOOD SPECIMENOrdering Facility: [facility] Address: [address] [place] [address] Performed By: #### A LLMG ####[facility] LABCLIA [id number] [address] [place] [address] [place] Methemoglobin (Bld) [Mass fraction] 1.7 % High 0.0-1.5 [facility] Comment on above: Order Comment: Speci men Type: ARTERIAL BLOOD SPECIMENOrdering Facility: [facility] Address: [address] [place] [address] Performed By: #### A LLMG ####[facility] LABCLIA [id number] [address] [place] [address] [place] Oxygen (Bld) [Partial pressure] 85 mm Hg Normal 85-95 [facility] Comment on above: Order Comment: Speci men Type: ARTERIAL BLOOD SPECIMENOrdering Facility: [facility] Address: [address] [place] [address] Performed By: #### A LLMG ####[facility] LABCLIA [id number] [address], [facility] [place] Oxygen adjusted to patient's actual temperature (Bld) [Partial pressure] 85 mmHg Normal 85-95 [facility] Comment on above: Order Comment: Speci men Type: ARTERIAL BLOOD SPECIMENOrdering Facility: [facility] Address: [address] [place] [address] Performed By: #### A LLMG ####[facility] LABCLIA [id number] [address] [place] [address] [place] Oxyhemoglobin (BldA) [Mass fraction] 94 % Low 95-98 [facility] Comment on above: Order Comment: Speci men Type: ARTERIAL BLOOD SPECIMENOrdering Facility: [facility] Address: [address] [place] [address] Performed By: #### A LLMG ####[facility] LABCLIA [id number] [address] [address] [place] pH (Bld) 7.45 [pH] Normal 7.35-7.45 [facility] Comment on above: Order Comment: Speci men Type: ARTERIAL BLOOD SPECIMENOrdering Facility: [facility] Address: [address] [place] [address] Performed By: #### A LLMG ####[facility] LABCLIA [id number] [address] [address] [place] pH adjusted to patient's actual temperature (Bld) 7.45 Normal 7.35-7.45 [facility] Comment on above: Order Comment: Speci men Type: ARTERIAL BLOOD SPECIMENOrdering Facility: [facility] Address: [address] [place] [address] Performed By: #### A LLMG ####[facility] LABIA [id number] [place] [address] [place] Potassium [Moles/Vol] 4.7 mmol/L Normal 3.5-5.0 [facility] Comment on above: Order Comment: Speci men Type: ARTERIAL BLOOD SPECIMENOrdering Facility: [facility] Address: [address] [place] [address] Performed By: #### A LLMG ####[facility] LABIA [id number] [place] [address] [place] Sodium [Moles/Vol] 132 mmol/L Low 136-144 [facility] Comment on above: Order Comment: Speci men Type: ARTERIAL BLOOD SPECIMENOrdering Facility: [facility] Address: [address] [place] [address] Performed By: #### A LLMG ####[facility] LABIA [id number] [place] [id number] [place] CBC panel Auto (Bld)on 10-23 Erythrocyte distribution width (RBC) [Ratio] 17.4 % High 11.5-15.0 [facility] Comment on above: Order Comment: Speci men Type: BLOOD SPECIMENOrdering Facility: [facility] Address: [address] [place] [address] Performed By: #### 5 8410-2 ####[facility] LABCLIA [id number] [place] [address] [place] Hematocrit (Bld) [Volume fraction] 23.2 % Low 39.0-51.0 [facility] Comment on above: Order Comment: Speci men Type: BLOOD SPECIMENOrdering Facility: [facility] Address: [address] [place] [address] Performed By: #### 5 8410-2 ####[facility] LABIA [id number] [place] [address] [place] Hemoglobin (Bld) [Mass/Vol] 7.2 g/dL Low 13.0-17.0 [facility] Comment on above: Order Comment: Speci men Type: BLOOD SPECIMENOrdering Facility: [facility] Address: [address] [place] [address] Performed By: #### 5 8410-2 ####[facility] LABIA [id number] [place] [address] [place] MCH (RBC) [Entitic mass] 31.7 pg Normal 26.0-34.0 [facility] Comment on above: Order Comment: Speci men Type: BLOOD SPECIMENOrdering Facility: [facility] Address: [address] [place] [address] Performed By: #### 5 8410-2 ####[facility] LABIA [id number] [place] [address] [place] MCHC (RBC) [Mass/Vol] 31.0 g/dL Normal 30.5-36.0 [facility] Comment on above: Order Comment: Speci men Type: BLOOD SPECIMENOrdering Facility: [facility] Address: [address] [place] [address] Performed By: #### 5 8410-2 ####[facility] LABCLIA [id number] [place] [address] [place] MCV (RBC) [Entitic vol] 102.2 fL High 80.0-100.0 [facility] Comment on above: Order Comment: Speci men Type: BLOOD SPECIMENOrdering Facility: [facility] Address: [address] [place] [address] Performed By: #### 5 8410-2 ####[facility] LABCLIA [id number] [place] [address] [place] Nucleated RBC (Bld) [#/Vol] 10*3/uL Normal <0.01 [facility] Comment on above: Order Comment: Speci men Type: BLOOD SPECIMENOrdering Facility: [facility] Address: [address] [place] [address] Performed By: #### 5 8410-2 ####[facility] LABIA [id number] [place] [address] [place] Platelet mean volume (Bld) [Entitic vol] 11.7 fL Normal 9.0-12.7 [facility] Comment on above: Order Comment: Speci men Type: BLOOD SPECIMENOrdering Facility: [facility] Address: [address] [place] [address] Performed By: #### 5 8410-2 ####[facility] LABIA [id number] [place] [address] [place] Platelets (Bld) [#/Vol] 86 10*3/uL Low 150-400 [facility] Comment on above: Order Comment: Speci men Type: BLOOD SPECIMENOrdering Facility: [facility] Address: [address] [place] [address] Result Comment: No c lot detected.Results checked and verified. Performed By: #### 5 8410-2 ####[facility] LABCLIA [id number] [place] [address] [place] RBC (Bld) [#/Vol] 2.27 10*6/uL Low 4.20-6.00 [facility] Comment on above: Order Comment: Speci men Type: BLOOD SPECIMENOrdering Facility: [facility] Address: [address] [place] [address] Performed By: #### 5 8410-2 ####[facility] LABCLIA [id number] [place] [address] [place] WBC (Bld) [#/Vol] 5.50 10*3/uL Normal 3.70-11.00 [facility] Comment on above: Order Comment: Speci men Type: BLOOD SPECIMENOrdering Facility: [facility] Address: [address] [place] [address] Performed By: #### 5 8410-2 ####[facility] LABCLIA [id number] [place] [address] [place] Erythrocyte distribution width (RBC) [Ratio] 17.5 % High 11.5-15.0 [facility] Comment on above: Order Comment: Speci men Type: BLOOD SPECIMENOrdering Facility: [facility] Address: [address] [place] [address] Performed By: #### 5 8410-2 ####[facility] LABCLIA [id number] [place] [address] [place] Hematocrit (Bld) [Volume fraction] 24.2 % Low 39.0-51.0 [facility] Comment on above: Order Comment: Speci men Type: BLOOD SPECIMENOrdering Facility: [facility] Address: [address] [place] [address] Performed By: #### 5 8410-2 ####[facility] LABCLIA [id number] [place] [address] [place] Hemoglobin (Bld) [Mass/Vol] 8.0 g/dL Low 13.0-17.0 [facility] Comment on above: Order Comment: Speci men Type: BLOOD SPECIMENOrdering Facility: [facility] Address: [address] [place] [address] Performed By: #### 5 8410-2 ####[facility] LABIA [id number] [place] [address] [place] [facility] MCH (RBC) [Entitic mass] 32.0 pg Normal 26.0-34.0 [facility] Comment on above: Order Comment: Speci men Type: BLOOD SPECIMENOrdering Facility: [facility] Address: [address] [place] [address] Performed By: #### 5 8410-2 ####[facility] LABIA [id number] [place] [address] [place] MCHC (RBC) [Mass/Vol] 33.1 g/dL Normal 30.5-36.0 [facility] Comment on above: Order Comment: Speci men Type: BLOOD SPECIMENOrdering Facility: [facility] Address: [address] [place] [address] Performed By: #### 5 8410-2 ####[facility] LABIA [id number] [place] [address] [place] MCV (RBC) [Entitic vol] 96.8 fL Normal 80.0-100.0 [facility] Comment on above: Order Comment: Speci men Type: BLOOD SPECIMENOrdering Facility: [facility] Address: [address] [place] [address] Performed By: #### 5 8410-2 ####[facility] LABIA [id number] [address] [place] Nucleated RBC (Bld) [#/Vol] 10*3/uL Normal <0.01 [facility] Comment on above: Order Comment: Speci men Type: BLOOD SPECIMENOrdering Facility: [facility] Address: [address] [place] [address] Performed By: #### 5 8410-2 ####[facility] LABCLIA [id number] [place] [address] [place] Platelet mean volume (Bld) [Entitic vol] 12.3 fL Normal 9.0-12.7 [facility] Comment on above: Order Comment: Speci men Type: BLOOD SPECIMENOrdering Facility: [facility] Address: [address] [place] [address] Performed By: #### 5 8410-2 ####[facility] LABCLIA [id number] [place] [address] [place] Platelets (Bld) [#/Vol] 110 10*3/uL Low 150-400 [facility] Comment on above: Order Comment: Speci men Type: BLOOD SPECIMENOrdering Facility: [facility] Address: [address] [place] [address] Result Comment: No c lot detected.Results checked and verified. Performed By: #### 5 8410-2 ####[facility] LABCLIA [id number] [place] [address] [place] RBC (Bld) [#/Vol] 2.50 10*6/uL Low 4.20-6.00 [facility] Comment on above: Order Comment: Speci men Type: BLOOD SPECIMENOrdering Facility: [facility] Address: [address] [place] [address] Performed By: #### 5 8410-2 ####[facility] LABCLIA [id number] [place] [address] [place] WBC (Bld) [#/Vol] 6.38 10*3/uL Normal 3.70-11.00 [facility] Comment on above: Order Comment: Speci men Type: BLOOD SPECIMENOrdering Facility: [facility] Address: [address] [place] [address] Performed By: #### 5 8410-2 ####[facility] LABCLIA [id number] [place] [id number] [place] Comprehensive metabolic 2000 panelon 10-23-2024 Albumin [Mass/Vol] 2.3 g/dL Low 3.9-4.9 [facility] Comment on above: Order Comment: Speci men Type: BLOOD SPECIMENOrdering Facility: [facility] Address: [address] [place], [place] [address] Performed By: #### 2 4323-8, 15591-7, 4542-7, 2777-1 ####[facility] LABCLIA [id number] [place] [id number] [place] ALP [Catalytic activity/Vol] 74 U/L Normal 38-113 [facility] Comment on above: Order Comment: Speci men Type: BLOOD SPECIMENOrdering Facility: [facility] Address: [address] [place] [address] Performed By: #### 2 4323-8, 13289-3, 4542-7, 2777-1 ####[facility] LABCLIA [id number] [place] [address] [place] ALT [Catalytic activity/Vol] 13 U/L Normal 10-54 [facility] Comment on above: Order Comment: Speci men Type: BLOOD SPECIMENOrdering Facility: [facility] Address: [address] [place] [address] Performed By: #### 2 4323-8, 79825-0, 4542-7, 2777-1 ####[facility] LABCLIA [id number] [place] [id number] [place] Anion gap [Moles/Vol] 9 mmol/L Normal 8-15 [facility] Comment on above: Order Comment: Speci men Type: BLOOD SPECIMENOrdering Facility: [facility] Address: [address] [place], [place] [address] Performed By: #### 2 4323-8, 64660-8, 4542-7, 2777-1 ####[facility] LABCLIA [id number] [address] [address] [place] AST [Catalytic activity/Vol] 29 U/L Normal 14-40 [facility] Comment on above: Order Comment: Speci men Type: BLOOD SPECIMENOrdering Facility: [facility] Address: [address] [place] [address] Performed By: #### 2 4323-8, 86857-0, 4542-7, 2777-1 ####[facility] LABCLIA [id number] [place] [address] [place] Bilirubin [Mass/Vol] 0.2 mg/dL Normal 0.2-1.3 [facility] Comment on above: Order Comment: Speci men Type: BLOOD SPECIMENOrdering Facility: [facility] Address: [address] [place] [address] Performed By: #### 2 4323-8, 26965-6, 4542-7, 2777-1 ####[facility] LABCLIA [id number] [place] [address] [place] Calcium [Mass/Vol] 7.9 mg/dL Low 8.5-10.2 [facility] Comment on above: Order Comment: Speci men Type: BLOOD SPECIMENOrdering Facility: [facility] Address: [address] [place] [address] Performed By: #### 2 4323-8, 87891-2, 4542-7, 2777-1 ####[facility] LABCLIA [id number] [place] [address] [place] Chloride [Moles/Vol] 99 mmol/L Normal 98-107 [facility] Comment on above: Order Comment: Speci men Type: BLOOD SPECIMENOrdering Facility: [facility] Address: [address] [place] [address] Performed By: #### 2 4323-8, 75878-1, 4542-7, 2777-1 ####[facility] LABCLIA [id number] [place] [id number] [place] CO2 [Moles/Vol] 26 mmol/L Normal 22-30 [facility] Comment on above: Order Comment: Speci men Type: BLOOD SPECIMENOrdering Facility: [facility] Address: [address] [place] [address] Performed By: #### 2 4323-8, 50259-4, 4542-7, 2777-1 ####[facility] LABCLIA [id number] [place] [id number] [place] Creatinine [Mass/Vol] 1.39 mg/dL High 0.73-1.22 [facility] Comment on above: Order Comment: Speci men Type: BLOOD SPECIMENOrdering Facility: [facility] Address: [address] [place] [address] Performed By: #### 2 4323-8, 96976-9, 4542-7, 2777- ####[facility] LABIA [id number] [place] [address] [place] eGFRcr SerPlBld CKD-EPI 2020 57 mL/min/1.73m??? Low >=60 [facility] Comment on above: Order Comment: Speci men Type: BLOOD SPECIMENOrdering Facility: [facility] Address: [address] [place] [address] Result Comment: Gurwinder mated Glomerular Filtration Rate [...] actual GFR. Performed By: #### 2 4323-8, 92104-3, 4542-7, 2777-1 ####[facility] LABCLIA [id number] [address] [address] [place] Glucose [Mass/Vol] 212 mg/dL High 74-99 [facility] Comment on above: Order Comment: Speci men Type: BLOOD SPECIMENOrdering Facility: [facility] Address: [address] [place] [address] Result Comment: The [place] [employer] Association (ADA) provides guidance for cutoff [...] Standards of Medical Care in Diabetes 2016, [place] [employer]. Diabetes Care. 2016.39(Suppl 1). Performed By: #### 2 4323-8, 23905-7, 4542-7, 2777-1 ####[facility] LABCLIA [id number] [place] [address] [place] Potassium [Moles/Vol] 5.0 mmol/L Normal 3.7-5.1 [facility] Comment on above: Order Comment: Gini nowak Type: BLOOD SPECIMENOrdering Facility: [facility] Address: [address] [place] [address] Performed By: #### 2 4323-8, 79353-3, 4542-7, 2777-1 ####[facility] LABCLIA [id number] [place] [address] [place] Protein [Mass/Vol] 4.5 g/dL Low 6.3-8.0 [facility] Comment on above: Order Comment: Gini nowak Type: BLOOD SPECIMENOrdering Facility: [facility] Address: [address] [place] [address] Performed By: #### 2 4323-8, 97104-6, 4542-7, 2777-1 ####[facility] LABCLIA [id number] [place] [id number] [place] Sodium [Moles/Vol] 134 mmol/L Low 136-144 [facility] Comment on above: Order Comment: Speci men Type: BLOOD SPECIMENOrdering Facility: [facility] Address: [address] [place] [address] Performed By: #### 2 4323-8, 20261-6, 4542-7, 277-1 ####[facility] LABCLIA [id number] [place] [address] [place] Urea nitrogen [Mass/Vol] 19 mg/dL Normal 9-24 [facility] Comment on above: Order Comment: Speci men Type: BLOOD SPECIMENOrdering Facility: [facility] Address: [address] [place] [address] Performed By: #### 2 4323-8, 03287-5, 4542-7, 2776-1 ####[facility] LABCLIA [id number] [place] [address] [place] Albumin [Mass/Vol] 2.6 g/dL Low 3.9-4.9 [facility] Comment on above: Order Comment: Speci men Type: BLOOD SPECIMENOrdering Facility: [facility] Address: [address] [place] [address] Performed By: #### 1 9123-9, 2777-1, 37760-0 ####[facility] LABCLIA [id number] [place] [address] [place] ALP [Catalytic activity/Vol] 90 U/L Normal 38-113 [facility] Comment on above: Order Comment: Speci men Type: BLOOD SPECIMENOrdering Facility: [facility] Address: [address] [place] [address] Performed By: #### 1 9123-9, 2777-1, 81890-5 ####[facility] LABCLIA [id number] [place] [id number] [place] ALT [Catalytic activity/Vol] 12 U/L Normal 10-54 [facility] Comment on above: Order Comment: Speci men Type: BLOOD SPECIMENOrdering Facility: [facility] Address: [address] [place] [address] Performed By: #### 1 9123-9, 27708-08, 26329-5 ####[facility] LABCLIA [id number] [facility] [place] [id number] [place] Anion gap [Moles/Vol] 9 mmol/L Normal 8-15 [facility] Comment on above: Order Comment: Speci men Type: BLOOD SPECIMENOrdering Facility: [facility] Address: [address] [place] [address] Performed By: #### 1 9123-9, 27708-08, 17203-2 ####[facility] LABCLIA [id number] [place] [address] [place] AST [Catalytic activity/Vol] 28 U/L Normal 14-40 [facility] Comment on above: Order Comment: Speci men Type: BLOOD SPECIMENOrdering Facility: [facility] Address: [address] [place] [address] Performed By: #### 1 9123-9, 27708-08, 03612-1 ####[facility] LABCLIA [id number] [address] [address] [place] Bilirubin [Mass/Vol] 0.3 mg/dL Normal 0.2-1.3 [facility] Comment on above: Order Comment: Speci men Type: BLOOD SPECIMENOrdering Facility: [facility] Address: [address] [place], [place] [address] Performed By: #### 1 9123-9, 27708-08, 96639-6 ####[facility] LABCLIA [id number] [facility] [address] [address] [place] Calcium [Mass/Vol] 8.2 mg/dL Low 8.5-10.2 [facility] Comment on above: Order Comment: Speci men Type: BLOOD SPECIMENOrdering Facility: [facility] Address: [address] [place] [address] Performed By: #### 1 9123-9, 27708-08, 85781-0 ####[facility] LABCLIA [id number] [facility] [address] [address] [place] Chloride [Moles/Vol] 99 mmol/L Normal 98-107 [facility] Comment on above: Order Comment: Speci men Type: BLOOD SPECIMENOrdering Facility: [facility] Address: [address] [place], [place] [address] Performed By: #### 1 9123-9, 27708-08, ####[facility] LABCLIA [id number] [address] [address] [place] CO2 [Moles/Vol] 27 mmol/L Normal 22-30 [facility] Comment on above: Order Comment: Speci men Type: BLOOD SPECIMENOrdering Facility: [facility] Address: [address] [place], [place] [address] Performed By: #### 1 9123-9, 27708-08, ####[facility] LABCLIA [id number] [address] [address] [place] Creatinine [Mass/Vol] 1.26 mg/dL High 0.73-1.22 [facility] Comment on above: Order Comment: Speci men Type: BLOOD SPECIMENOrdering Facility: [facility] Address: [address] [place], [place] [address] Performed By: #### 1 9123-9, 27708-08, 22665-2 ####[facility] LABCLIA [id number] [address] [address] [place] eGFRcr SerPlBld CKD-EPI 2020 64 mL/min/1.73m??? Normal >=60 [facility] Comment on above: Order Comment: Speci men Type: BLOOD SPECIMENOrdering Facility: [facility] Address: [address] [place] [id number] Result Comment: Gurwinder mated Glomerular Filtration Rate [...] GFR. Performed By: #### 1 9123-9, 2777-, 57878-0 ####[facility] LABIA [id number] [place] [address] [place] Glucose [Mass/Vol] 95 mg/dL Normal 74-99 [facility] Comment on above: Order Comment: Gini nowak Type: BLOOD SPECIMENOrdering Facility: [facility] Address: [address] [place] [address] Result Comment: The [place] Diabetes Association (ADA) provides guidance for cutoff [...] Standards of Medical Care in Diabetes 2016, [place] [employer]. Diabetes Care. 2016.39(Suppl 1). Performed By: #### 1 9123-9, 2777-, 06513-8 ####[facility] LABIA [id number] [place] [id number] [place] Potassium [Moles/Vol] 4.9 mmol/L Normal 3.7-5.1 [facility] Comment on above: Order Comment: Gini nowak Type: BLOOD SPECIMENOrdering Facility: [facility] Address: [address] [place] [address] Performed By: #### 1 9123-9, 2777-1, 05820-4 ####[facility] LABIA [id number] [place] [id number] [place] Protein [Mass/Vol] 5.0 g/dL Low 6.3-8.0 [facility] Comment on above: Order Comment: Speci men Type: BLOOD SPECIMENOrdering Facility: [facility] Address: [address] [place] [address] Performed By: #### 1 9123-9, 2777-1, 59636-6 ####[facility] [id number] [place] [address] [place] Sodium [Moles/Vol] 135 mmol/L Low 136-144 [facility] Comment on above: Order Comment: Speci men Type: BLOOD SPECIMENOrdering Facility: [facility] Address: [address] [place] [address] Performed By: #### 1 9123-9, 2777-1, 39297-6 ####[facility] [id number] [place] [id number] [place] Urea nitrogen [Mass/Vol] 20 mg/dL Normal 9-24 [facility] Comment on above: Order Comment: Speci men Type: BLOOD SPECIMENOrdering Facility: [facility] Address: [address] [place] [address] Performed By: #### 1 9123-9, 2777-1, 93670-4 ####[facility] [id number] [place] [id number] [place] ECG COMPLETEon 10-23-2024 ECG COMPLETE Normal [facility] Fact Xa PPP-aCncon Coagulation factor X activated act Coag Qn (PPP) <0.10 Normal <0.10 [facility] Comment on above: Order Comment: Speci men Type: BLOOD SPECIMENOrdering Facility: [facility] Address: [address] [place] [address] Result Comment: The recommended therapeutic range for treatment of venous and arterial thrombosis with intravenous unfractionated heparin is an anti Xa activity level of 0.3 to 0.7 IU/mL. In patients with concomitant therapy with thrombolytic agents and/or platelet glycoprotein IIb/IIIa antagonists, the recommended therapeutic range is an anti Xa activity level of 0.2 to 0.5 IU/mL. Performed By: #### 3 217-7 ####[facility] LABIA [id number] [place] [address] [place] Coagulation factor X activated act Coag Qn (PPP) 0.44 IU/mL High <0.10 [facility] Comment on above: Order Comment: Gini nowak Type: BLOOD SPECIMENOrdering Facility: [facility] Address: [address] [place] [address] Result Comment: The recommended therapeutic range for treatment of venous and arterial thrombosis with intravenous unfractionated heparin is an anti Xa activity level of 0.3 to 0.7 IU/mL. In patients with concomitant therapy with thrombolytic agents and/or platelet glycoprotein IIb/IIIa antagonists, the recommended therapeutic range is an anti Xa activity level of 0.2 to 0.5 IU/mL. Performed By: #### 3 4528-0, 3217-7 ####[facility] [id number] [place] [address] [place] Gas + CO Pnl BldVon 10-24-19 25 Body temperature 98.42 [degF] Normal [facility] [facility] Comment on above: Order Comment: Gini nowak Type: VENOUS BLOOD SPECIMENOrdering Facility: [facility] Address: [address] [place] [address] Performed By: #### 2 4344-4 ####[facility] LABIA [id number] [place] [address] [place] Order Comment: Gini nowak Type: ARTERIAL BLOOD SPECIMENOrdering Facility: [facility] Address: [address], [place] [address] Performed By: #### A LLBG ####[facility] LABCLIA [id number] [address] [place] [address] [place] HCO3 (Bld) [Moles/Vol] 29 mmol/L High 22-26 Cl [facility] Comment on above: Order Comment: Speci men Type: VENOUS BLOOD SPECIMENOrdering Facility: [facility] Address: [address] [place] [address] Performed By: #### 2 4344-4 ####[facility] LABCLIA [id number] [address] [place] [address] [place] Order Comment: Speci men Type: ARTERIAL BLOOD SPECIMENOrdering Facility: [facility] Address: [address] [place] [address] Performed By: #### A LLBG ####[facility] LABCLIA [id number] [place] [address] [place] LITERS 3 Liters/min Normal [facility] Comment on above: Order Comment: Speci men Type: VENOUS BLOOD SPECIMENOrdering Facility: [facility] Address: [address] [place] [address] Performed By: #### 2 4344-4 ####[facility] LABCLIA [id number] [address] [address] [place] Order Comment: Speci men Type: ARTERIAL BLOOD SPECIMENOrdering Facility: [facility] Address: [address] [place] [address] Performed By: #### A LLBG ####[facility] LABCLIA [id number] [place] [id number] [place] O2 THERAPY [place] = Nasal Cannula Normal [facility] Comment on above: Order Comment: Speci men Type: VENOUS BLOOD SPECIMENOrdering Facility: [facility] Address: [address] [place], [place] [address] Performed By: #### 2 4344-4 ####[facility] LABCLIA [id number] [facility] [address] [place] [address] [place] Order Comment: Speci men Type: ARTERIAL BLOOD SPECIMENOrdering Facility: [facility] Address: [address] [place] [address] Performed By: #### A LLBG ####[facility] LABCLIA [id number] [facility] [address] [place] [address] [place] Body temperature 98.6 [degF] Normal [facility] Comment on above: Order Comment: Speci men Type: VENOUS BLOOD SPECIMENOrdering Facility: [facility] Address: [address] [place] [address] Performed By: #### 2 4344-4 ####[facility] LABCLIA [id number] [address], [address] [place] Order Comment: Speci men Type: ARTERIAL BLOOD SPECIMENOrdering Facility: [facility] Address: [address] [place] [address] Performed By: #### A LLBG ####[facility] LABCLIA [id number] [place] [address] [place] Glucose [Mass/Vol] 79 mg/dL Normal 60-105 [facility] Comment on above: Order Comment: Speci men Type: VENOUS BLOOD SPECIMENOrdering Facility: [facility] Address: [address] [place] [address] Performed By: #### 2 4344-4 ####[facility] LABCLIA [id number] [facility] [address] [place] [address] [place] Order Comment: Speci men Type: ARTERIAL BLOOD SPECIMENOrdering Facility: [facility] Address: [address] [place] [address] Performed By: #### A LLBG ####[facility] LABCLIA [id number] [facility] [address] [address] [place] HCO3 (Bld) [Moles/Vol] 30 mmol/L High 22-26 Cl [facility] [place] Comment on above: Order Comment: Speci men Type: VENOUS BLOOD SPECIMENOrdering Facility: [facility] Address: [address] [place] [id number] Performed By: #### 2 4344-4 ####[facility] LABCLIA [id number] [facility] [address] [place] [address] [place] Order Comment: Speci men Type: ARTERIAL BLOOD SPECIMENOrdering Facility: [facility] Address: [address] [place], [place] [address] Performed By: #### A LLBG ####[facility] LABCLIA [id number] [address] [place] [address] [place] LITERS 3 Liters/min Normal [facility] Comment on above: Order Comment: Speci men Type: VENOUS BLOOD SPECIMENOrdering Facility: [facility] Address: [address] [place], [place] [address] Performed By: #### 2 4344-4 ####[facility] LABCLIA [id number] [address] [place] [address] [place] Order Comment: Speci men Type: ARTERIAL BLOOD SPECIMENOrdering Facility: [facility] Address: [address] [place], [place] [address] Performed By: #### A LLBG ####[facility] LABCLIA [id number] [facility] [address] [place] [address] [place] O2 THERAPY [place] = Nasal Cannula Normal [facility] Comment on above: Order Comment: Speci men Type: VENOUS BLOOD SPECIMENOrdering Facility: [facility] Address: [address] [place] [address] Performed By: #### 2 4344-4 ####[facility] LABCLIA [id number] [facility] [address] [place] [address] [place] Order Comment: Speci men Type: ARTERIAL BLOOD SPECIMENOrdering Facility: [facility] Address: [address] [place], [place] [address] Performed By: #### A LLBG ####[facility] LABIA [id number] [place] [address] [place] Gas and Carbon monoxide pane l (BldV)on 10-23-2024 Base excess Calc (BldV) [Moles/Vol] 4 mmol/L High 0-2 [facility] Comment on above: Order Comment: Speci men Type: VENOUS BLOOD SPECIMENOrdering Facility: [facility] Address: [address] [place] [address] Performed By: #### 2 4344-4 ####[facility] LABIA [id number] [place] [address] [place] Body temperature 99.14 [degF] Normal [facility] Comment on above: Order Comment: Speci men Type: VENOUS BLOOD SPECIMENOrdering Facility: [facility] Address: [address] [place] [address] Performed By: #### 2 4344-4 ####[facility] LABIA [id number] [place] [address] [place] Calcium.ionized (Bld) [Mass/Vol] 1.14 mmol/L Normal 1.08-1.30 [facility] Comment on above: Order Comment: Speci men Type: VENOUS BLOOD SPECIMENOrdering Facility: [facility] Address: [address] [place] [address] Performed By: #### 2 4344-4 ####[facility] LABIA [id number] [place] [address] [place] Calcium.ionized adjusted to pH 7.4 (BldA) [Moles/Vol] 1.13 mmol/L Normal 1.08-1.30 [facility] Comment on above: Order Comment: Speci men Type: VENOUS BLOOD SPECIMENOrdering Facility: [facility] Address: [address] [place] [address] Performed By: #### 2 4344-4 ####[facility] LABIA [id number] [place] [id number] [place] Carboxyhemoglobin (BldV) [Mass fraction] 1.5 % Normal 0.0-2.0 [facility] Comment on above: Order Comment: Speci men Type: VENOUS BLOOD SPECIMENOrdering Facility: [facility] Address: [address] [place] [address] Result Comment: Carb oxyhemoglobin Reference Range for Smokers: 2.0-8.0% Performed By: #### 2 4344-4 ####[facility] LABCLIA [id number] [place] [address] [place] CO2 (BldV) [Partial pressure] 51 mm[Hg] Normal 42-55 [facility] Comment on above: Order Comment: Speci men Type: VENOUS BLOOD SPECIMENOrdering Facility: [facility] Address: [address] [place] [address] Performed By: #### 2 4344-4 ####[facility] LABIA [id number] [place] [address] [place] CO2 adjusted to patient's actual temperature (BldV) [Partial pressure] 52 mmHg Normal 42-55 [facility] Comment on above: Order Comment: Speci men Type: VENOUS BLOOD SPECIMENOrdering Facility: [facility] Address: [address] [place] [address] Performed By: #### 2 4344-4 ####[facility] LABCLIA [id number] [place] [id number] [place] Glucose [Mass/Vol] 206 mg/dL High 60-105 [facility] Comment on above: Order Comment: Speci men Type: VENOUS BLOOD SPECIMENOrdering Facility: [facility] Address: [address] [place] [address] Performed By: #### 2 4344-4 ####[facility] LABIA [id number] [place] [id number] [place] HCO3 (Bld) [Moles/Vol] 29 mmol/L High 24-28 [facility] Comment on above: Order Comment: Speci men Type: VENOUS BLOOD SPECIMENOrdering Facility: [facility] Address: [address] [place] [address] Performed By: #### 2 4344-4 ####[facility] LABCLIA [id number] [place] [address] [place] Hematocrit (Bld) [Volume fraction] 22.0 % Low 39.0-51.0 [facility] Comment on above: Order Comment: Speci men Type: VENOUS BLOOD SPECIMENOrdering Facility: [facility] Address: [address] [place] [address] Performed By: #### 2 4344-4 ####[facility] LABCLIA [id number] [place] [address] [place] Hemoglobin (Bld) [Mass/Vol] 7.0 g/dL Low 13.0-17.0 [facility] Comment on above: Order Comment: Speci men Type: VENOUS BLOOD SPECIMENOrdering Facility: [facility] Address: [address] [place] [address] Performed By: #### 2 4344-4 ####[facility] LABIA [id number] [place] [address] [place] Lactate [Moles/Vol] 0.5 mmol/L Normal 0.5-2.2 [facility] Comment on above: Order Comment: Speci men Type: VENOUS BLOOD SPECIMENOrdering Facility: [facility] Address: [address] [place] [address] Performed By: #### 2 4344-4 ####[facility] LABIA [id number] [place] [address] [place] LITERS 5 Liters/min Normal [facility] Comment on above: Order Comment: Speci men Type: VENOUS BLOOD SPECIMENOrdering Facility: [facility] Address: [address] [place] [address] Performed By: #### 2 4344-4 ####[facility] LABCLIA [id number] [address] [address] [place] Methemoglobin (Bld) [Mass fraction] 1.3 % Normal 0.0-1.5 [facility] Comment on above: Order Comment: Speci men Type: VENOUS BLOOD SPECIMENOrdering Facility: [facility] Address: [address] [place], [place] [address] Performed By: #### 2 4344-4 ####[facility] LABCLIA [id number] [place] [id number] [place] O2 THERAPY [place] = Nasal Cannula Normal [facility] Comment on above: Order Comment: Speci men Type: VENOUS BLOOD SPECIMENOrdering Facility: [facility] Address: [address] [place] [address] Performed By: #### 2 4344-4 ####[facility] LABCLIA [id number] [address] [address] [place] Oxygen (BldV) [Partial pressure] 41 mm[Hg] Normal 35-45 [facility] Comment on above: Order Comment: Speci men Type: VENOUS BLOOD SPECIMENOrdering Facility: [facility] Address: [address] [place], [place] [address] Performed By: #### 2 4344-4 ####[facility] LABCLIA [id number] [address] [address] [place] Oxygen adjusted to patient's actual temperature (BldV) [Partial pressure] 42 mmHg Normal 35-45 [facility] Comment on above: Order Comment: Speci men Type: VENOUS BLOOD SPECIMENOrdering Facility: [facility] Address: [address] [place], [place] [address] Performed By: #### 2 4344-4 ####[facility] LABCLIA [id number] [address] [address] [place] Oxygen saturation in Venous blood 66 % Normal 60-85 [facility] Comment on above: Order Comment: Speci men Type: VENOUS BLOOD SPECIMENOrdering Facility: [facility] Address: [facility] [place] [address] Performed By: #### 2 4344-4 ####[facility] LABCLIA [id number] [address] [address] [place] Oxyhemoglobin (BldV) [Mass fraction] 64 % Normal 60-85 [facility] Comment on above: Order Comment: Speci men Type: VENOUS BLOOD SPECIMENOrdering Facility: [facility] Address: [address] [place] [address] Performed By: #### 2 4344-4 ####[facility] LABCLIA [id number] [address] [address] [place] pH (BldV) 7.38 [pH] Normal 7.32-7.42 [facility] Comment on above: Order Comment: Speci men Type: VENOUS BLOOD SPECIMENOrdering Facility: [facility] Address: [address] [place] [address] Performed By: #### 2 4344-4 ####[facility] LABCLIA [id number] [address] [address] [place] pH adjusted to patient's actual temperature (BldV) 7.37 Normal 7.32-7.42 [facility] Comment on above: Order Comment: Speci men Type: VENOUS BLOOD SPECIMENOrdering Facility: [facility] Address: [address] [place], [place] [address] Performed By: #### 2 4344-4 ####[facility] LABIA [id number] [address] [address] [place] Potassium [Moles/Vol] 4.6 mmol/L Normal 3.5-5.0 [facility] Comment on above: Order Comment: Speci men Type: VENOUS BLOOD SPECIMENOrdering Facility: [facility] Address: [address] [place] [address] Performed By: #### 2 4344-4 ####[facility] LABCLIA [id number] [place] [address] [place] Sodium [Moles/Vol] 135 mmol/L Low 136-144 [facility] Comment on above: Order Comment: Speci men Type: VENOUS BLOOD SPECIMENOrdering Facility: [facility] Address: [address] [place] [address] Performed By: #### 2 4344-4 ####[facility] LABCLIA [id number] [place] [address] [place] Base excess Calc (BldV) [Moles/Vol] 5 mmol/L High 0-2 [facility] Comment on above: Order Comment: Speci men Type: VENOUS BLOOD SPECIMENOrdering Facility: [facility] Address: [address] [place] [address] Performed By: #### 2 4344-4 ####[facility] LABCLIA [id number] [place] [address] [place] Body temperature 97.88 [degF] Normal [facility] Comment on above: Order Comment: Speci men Type: VENOUS BLOOD SPECIMENOrdering Facility: [facility] Address: [address] [place] [address] Performed By: #### 2 4344-4 ####[facility] LABCLIA [id number] [place] [address] [place] Calcium.ionized (Bld) [Mass/Vol] 1.18 mmol/L Normal 1.08-1.30 [facility] Comment on above: Order Comment: Speci men Type: VENOUS BLOOD SPECIMENOrdering Facility: [facility] Address: [address] [place] [address] Performed By: #### 2 4344-4 ####[facility] LABCLIA [id number] [place] [id number] [place] Calcium.ionized adjusted to pH 7.4 (BldA) [Moles/Vol] 1.15 mmol/L Normal 1.08-1.30 [facility] Comment on above: Order Comment: Speci men Type: VENOUS BLOOD SPECIMENOrdering Facility: [facility] Address: [address] [place] [address] Performed By: #### 2 4344-4 ####[facility] LABCLIA [id number] [address] [place] Carboxyhemoglobin (BldV) [Mass fraction] 1.2 % Normal 0.0-2.0 [facility] Comment on above: Order Comment: Speci men Type: VENOUS BLOOD SPECIMENOrdering Facility: [facility] Address: [address] [place] [address] Result Comment: Carb oxyhemoglobin Reference Range for Smokers: 2.0-8.0% Performed By: #### 2 4344-4 ####[facility] LABIA [id number] [address] [place] CO2 (BldV) [Partial pressure] 56 mm[Hg] High 42-55 [facility] Comment on above: Order Comment: Speci men Type: VENOUS BLOOD SPECIMENOrdering Facility: [facility] Address: [address] [place] [address] Performed By: #### 2 4344-4 ####[facility] LABCLIA [id number] [address] [place] CO2 adjusted to patient's actual temperature (BldV) [Partial pressure] 55 mmHg Normal 42-55 [facility] Comment on above: Order Comment: Speci men Type: VENOUS BLOOD SPECIMENOrdering Facility: [facility] Address: [address] [place] [address] Performed By: #### 2 4344-4 ####[facility] LABCLIA [id number] [place] [id number] [place] Glucose [Mass/Vol] 102 mg/dL Normal 60-105 [facility] Comment on above: Order Comment: Speci men Type: VENOUS BLOOD SPECIMENOrdering Facility: [facility] Address: [address] [place] [address] Performed By: #### 2 4344-4 ####[facility] LABCLIA [id number] [address] [address] [place] HCO3 (Bld) [Moles/Vol] 31 mmol/L High 24-28 [facility] Comment on above: Order Comment: Speci men Type: VENOUS BLOOD SPECIMENOrdering Facility: [facility] Address: [address] [place] [address] Performed By: #### 2 4344-4 ####[facility] LABIA [id number] [place] [address] [place] Hematocrit (Bld) [Volume fraction] 23.6 % Low 39.0-51.0 [facility] Comment on above: Order Comment: Speci men Type: VENOUS BLOOD SPECIMENOrdering Facility: [facility] Address: [address] [place] [address] Performed By: #### 2 4344-4 ####[facility] LABIA [id number] [place] [address] [place] Hemoglobin (Bld) [Mass/Vol] 7.6 g/dL Low 13.0-17.0 [facility] Comment on above: Order Comment: Speci men Type: VENOUS BLOOD SPECIMENOrdering Facility: [facility] Address: [address] [place], [place] [address] Performed By: #### 2 4344-4 ####[facility] LABIA [id number] [place] [id number] [place] Lactate [Moles/Vol] 0.7 mmol/L Normal 0.5-2.2 [facility] Comment on above: Order Comment: Speci men Type: VENOUS BLOOD SPECIMENOrdering Facility: [facility] Address: [address] [place] [address] [place] [address] Performed By: #### 2 4344-4 ####[facility] LABCLIA [id number] [address] [address] [place] LITERS 6 Liters/min Normal [facility] Comment on above: Order Comment: Speci men Type: VENOUS BLOOD SPECIMENOrdering Facility: [facility] Address: [address] [place] [id number] Performed By: #### 2 4344-4 ####[facility] LABCLIA [id number] [address] [place] [address] [place] Methemoglobin (Bld) [Mass fraction] 1.3 % Normal 0.0-1.5 [facility] Comment on above: Order Comment: Speci men Type: VENOUS BLOOD SPECIMENOrdering Facility: [facility] Address: [address] [place], [place] [address] Performed By: #### 2 4344-4 ####[facility] LABCLIA [id number] [address] [address] [place] O2 THERAPY [place] = Nasal Cannula Normal [facility] Comment on above: Order Comment: Speci men Type: VENOUS BLOOD SPECIMENOrdering Facility: [facility] Address: [address] [place] [address] Performed By: #### 2 4344-4 ####[facility] LABCLIA [id number] [address] [address] [place] Oxygen (BldV) [Partial pressure] 35 mm[Hg] Normal 35-45 [facility] Comment on above: Order Comment: Speci men Type: VENOUS BLOOD SPECIMENOrdering Facility: [facility] Address: [address] [place] [address] Performed By: #### 2 4344-4 ####[facility] LABCLIA [id number] [address] [address] [place] Oxygen adjusted to patient's actual temperature (BldV) [Partial pressure] 34 mmHg Low 35-45 [facility] Comment on above: Order Comment: Speci men Type: VENOUS BLOOD SPECIMENOrdering Facility: [facility] Address: [address] [place] [address] Performed By: #### 2 4344-4 ####[facility] LABCLIA [id number] [address] [place] [address] [place] Oxygen saturation in Venous blood 58 % Low 60-85 [facility] Comment on above: Order Comment: Speci men Type: VENOUS BLOOD SPECIMENOrdering Facility: [facility] Address: [address] [place] [address] Performed By: #### 2 4344-4 ####[facility] LABCLIA [id number] [address] [address] [place] Oxyhemoglobin (BldV) [Mass fraction] 57 % Low 60-85 [facility] Comment on above: Order Comment: Speci men Type: VENOUS BLOOD SPECIMENOrdering Facility: [facility] Address: [address] [place] [address] Performed By: #### 2 4344-4 ####[facility] LABCLIA [id number] [place] [address] [place] pH (BldV) 7.36 [pH] Normal 7.32-7.42 [facility] Comment on above: Order Comment: Speci men Type: VENOUS BLOOD SPECIMENOrdering Facility: [facility] Address: [address] [place] [address] Performed By: #### 2 4344-4 ####[facility] LABCLIA [id number] [place] [id number] [place] pH adjusted to patient's actual temperature (BldV) 7.37 Normal 7.32-7.42 [facility] Comment on above: Order Comment: Speci men Type: VENOUS BLOOD SPECIMENOrdering Facility: [facility] Address: [address] [place] [address] Performed By: #### 2 4344-4 ####[facility] LABCLIA [id number] [place] [id number] [place] Potassium [Moles/Vol] 4.4 mmol/L Normal 3.5-5.0 [facility] Comment on above: Order Comment: Speci men Type: VENOUS BLOOD SPECIMENOrdering Facility: [facility] Address: [address] [place] [address] Performed By: #### 2 4344-4 ####[facility] LABIA [id number] [place] [id number] [place] Sodium [Moles/Vol] 135 mmol/L Low 136-144 [facility] Comment on above: Order Comment: Speci men Type: VENOUS BLOOD SPECIMENOrdering Facility: [facility] Address: [address] [place] [address] Performed By: #### 2 4344-4 ####[facility] LABIA [id number] [place] [address] [place] Base excess Calc (BldV) [Moles/Vol] 0 mmol/L Normal 0-2 [facility] Comment on above: Order Comment: Speci men Type: VENOUS BLOOD SPECIMENOrdering Facility: [facility] Address: [address] [place] [address] Performed By: #### 2 4344-4 ####[facility] LABIA [id number] [place] [id number] [place] Calcium.ionized (Bld) [Mass/Vol] 1.12 mmol/L Normal 1.08-1.30 [facility] Comment on above: Order Comment: Speci men Type: VENOUS BLOOD SPECIMENOrdering Facility: [facility] Address: [address] [place] [address] Performed By: #### 2 4344-4 ####[facility] LABIA [id number] [address] [id number] [address] [place] Calcium.ionized adjusted to pH 7.4 (BldA) [Moles/Vol] 1.08 mmol/L Normal 1.08-1.30 [facility] Comment on above: Order Comment: Speci men Type: VENOUS BLOOD SPECIMENOrdering Facility: [facility] Address: [address] [place] [address] Performed By: #### 2 4344-4 ####[facility] LABIA [id number] [place] [address] [place] Carboxyhemoglobin (BldV) [Mass fraction] 1.5 % Normal 0.0-2.0 [facility] Comment on above: Order Comment: Speci men Type: VENOUS BLOOD SPECIMENOrdering Facility: [facility] Address: [address] [place] [address] Result Comment: Carb oxyhemoglobin Reference Range for Smokers: 2.0-8.0% Performed By: #### 2 4344-4 ####[facility] LABIA [id number] [address] [place] CO2 (BldV) [Partial pressure] 49 mm[Hg] Normal 42-55 [facility] Comment on above: Order Comment: Speci men Type: VENOUS BLOOD SPECIMENOrdering Facility: [facility] Address: [address] [place] [address] Performed By: #### 2 4344-4 ####[facility] LABIA [id number] [place] [address] [place] FIO2 8 % Normal [facility] Comment on above: Order Comment: Speci men Type: VENOUS BLOOD SPECIMENOrdering Facility: [facility] Address: [address] [place] [address] Performed By: #### 2 4344-4 ####[facility] LABIA [id number] [place] [id number] [place] Glucose [Mass/Vol] 142 mg/dL High 60-105 [facility] Comment on above: Order Comment: Speci men Type: VENOUS BLOOD SPECIMENOrdering Facility: [facility] Address: [address] [place], [place] [address] Performed By: #### 2 4344-4 ####[facility] LABCLIA [id number] [address] [address] [place] HCO3 (Bld) [Moles/Vol] 25 mmol/L Normal 24-28 [facility] Comment on above: Order Comment: Speci men Type: VENOUS BLOOD SPECIMENOrdering Facility: [facility] Address: [address] [place] [address] Performed By: #### 2 4344-4 ####[facility] LABIA [id number] [place] [address] [place] Hematocrit (Bld) [Volume fraction] 22.2 % Low 39.0-51.0 [facility] Comment on above: Order Comment: Speci men Type: VENOUS BLOOD SPECIMENOrdering Facility: [facility] Address: [address] [place] [address] Performed By: #### 2 4344-4 ####[facility] LABIA [id number] [place] [address] [place] Hemoglobin (Bld) [Mass/Vol] 7.1 g/dL Low 13.0-17.0 [facility] Comment on above: Order Comment: Speci men Type: VENOUS BLOOD SPECIMENOrdering Facility: [facility] Address: [address] [place], [place] [address] Performed By: #### 2 4344-4 ####[facility] LABIA [id number] [place] [id number] [place] Lactate [Moles/Vol] 1.1 mmol/L Normal 0.5-2.2 [facility] Comment on above: Order Comment: Speci men Type: VENOUS BLOOD SPECIMENOrdering Facility: [facility] Address: [address] [place], [place] [address] Performed By: #### 2 4344-4 ####[facility] LABCLIA [id number] [address] [place] [address] [place] Methemoglobin (Bld) [Mass fraction] 0.7 % Normal 0.0-1.5 [facility] Comment on above: Order Comment: Speci men Type: VENOUS BLOOD SPECIMENOrdering Facility: [facility] Address: [address] [place], [place] [address] Performed By: #### 2 4344-4 ####[facility] LABCLIA [id number] [facility] [address] [place] [address] [place] Oxygen (BldV) [Partial pressure] 39 mm[Hg] Normal 35-45 [facility] Comment on above: Order Comment: Speci men Type: VENOUS BLOOD SPECIMENOrdering Facility: [facility] Address: [address] [place] [address] Performed By: #### 2 4344-4 ####[facility] LABCLIA [id number] [address] [place] [address] [place] Oxygen saturation in Venous blood 72 % Normal 60-85 [facility] Comment on above: Order Comment: Speci men Type: VENOUS BLOOD SPECIMENOrdering Facility: [facility] Address: [address] [place], [place] [address] Performed By: #### 2 4344-4 ####[facility] LABCLIA [id number] [address] [place] [address] [place] Oxyhemoglobin (BldV) [Mass fraction] 70 % Normal 60-85 [facility] Comment on above: Order Comment: Speci men Type: VENOUS BLOOD SPECIMENOrdering Facility: [facility] Address: [address] [place] [address] Performed By: #### 2 4344-4 ####[facility] LABCLIA [id number] [address] [place] [address] [place] pH (BldV) 7.34 [pH] Normal 7.32-7.42 [facility] Comment on above: Order Comment: Speci men Type: VENOUS BLOOD SPECIMENOrdering Facility: [facility] Address: [address] [place] [address] Performed By: #### 2 4344-4 ####[facility] LABCLIA [id number] [place] [address] [place] Potassium [Moles/Vol] 4.0 mmol/L Normal 3.5-5.0 [facility] Comment on above: Order Comment: Speci men Type: VENOUS BLOOD SPECIMENOrdering Facility: [facility] Address: [address] [place] [address] Performed By: #### 2 4344-4 ####[facility] LABCLIA [id number] [place] [address] [place] Sodium [Moles/Vol] 136 mmol/L Normal 136-144 [facility] Comment on above: Order Comment: Speci men Type: VENOUS BLOOD SPECIMENOrdering Facility: [facility] Address: [address] [place] [address] Performed By: #### 2 4344-4 ####[facility] LABIA [id number] [place] [address] [place] Base excess Calc (BldV) [Moles/Vol] 4 mmol/L High 0-2 [facility] Comment on above: Order Comment: Speci men Type: VENOUS BLOOD SPECIMENOrdering Facility: [facility] Address: [address] [place] [address] Performed By: #### 2 4344-4 ####[facility] LABCLIA [id number] [place] [address] [place] Calcium.ionized (Bld) [Mass/Vol] 1.14 mmol/L Normal 1.08-1.30 [facility] Comment on above: Order Comment: Speci men Type: VENOUS BLOOD SPECIMENOrdering Facility: [facility] Address: [address] [place] [address] Performed By: #### 2 4344-4 ####[facility] LABIA [id number] [place] [address] [place] Calcium.ionized adjusted to pH 7.4 (BldA) [Moles/Vol] 1.15 mmol/L Normal 1.08-1.30 [facility] Comment on above: Order Comment: Speci men Type: VENOUS BLOOD SPECIMENOrdering Facility: [facility] Address: [address] [place] [address] Performed By: #### 2 4344-4 ####[facility] [id number] [place] [address] [place] Carboxyhemoglobin (BldV) [Mass fraction] 1.4 % Normal 0.0-2.0 [facility] Comment on above: Order Comment: Speci men Type: VENOUS BLOOD SPECIMENOrdering Facility: [facility] Address: [address] [place] [address] Result Comment: Carb oxyhemoglobin Reference Range for Smokers: 2.0-8.0% Performed By: #### 2 4344-4 ####[facility] [id number] [place] [address] [place] CO2 (BldV) [Partial pressure] 46 mm[Hg] Normal 42-55 [facility] Comment on above: Order Comment: Speci men Type: VENOUS BLOOD SPECIMENOrdering Facility: [facility] Address: [address] [place] [address] Performed By: #### 2 4344-4 ####[facility] LABIA [id number] [place] [address] [place] CO2 adjusted to patient's actual temperature (BldV) [Partial pressure] 46 mmHg Normal 42-55 [facility] Comment on above: Order Comment: Speci men Type: VENOUS BLOOD SPECIMENOrdering Facility: [facility] Address: [address] [place] [address] Performed By: #### 2 4344-4 ####[facility] LABCLIA [id number] [place] [id number] [place] Glucose [Mass/Vol] 108 mg/dL High 60-105 [facility] Comment on above: Order Comment: Speci men Type: VENOUS BLOOD SPECIMENOrdering Facility: [facility] Address: [address] [place] [address] Performed By: #### 2 4344-4 ####[facility] LABIA [id number] [place] [address] [place] Hematocrit (Bld) [Volume fraction] 25.1 % Low 39.0-51.0 [facility] Comment on above: Order Comment: Speci men Type: VENOUS BLOOD SPECIMENOrdering Facility: [facility] Address: [address] [place] [address] Performed By: #### 2 4344-4 ####[facility] LABIA [id number] [place] [address] [place] Hemoglobin (Bld) [Mass/Vol] 8.0 g/dL Low 13.0-17.0 [facility] Comment on above: Order Comment: Speci men Type: VENOUS BLOOD SPECIMENOrdering Facility: [facility] Address: [address] [place] [address] Performed By: #### 2 4344-4 ####[facility] LABIA [id number] [place] [address] [place] Lactate [Moles/Vol] 0.5 mmol/L Normal 0.5-2.2 [facility] Comment on above: Order Comment: Speci men Type: VENOUS BLOOD SPECIMENOrdering Facility: [facility] Address: [address] [place] [address] Performed By: #### 2 4344-4 ####[facility] LABCLIA [id number] [place] [address] [place] Methemoglobin (Bld) [Mass fraction] 1.3 % Normal 0.0-1.5 [facility] Comment on above: Order Comment: Speci men Type: VENOUS BLOOD SPECIMENOrdering Facility: [facility] Address: [address] [place] [address] Performed By: #### 2 4344-4 ####[facility] LABCLIA [id number] [facility] [address] [place] [address] [place] Oxygen (BldV) [Partial pressure] 36 mm[Hg] Normal 35-45 [facility] Comment on above: Order Comment: Speci men Type: VENOUS BLOOD SPECIMENOrdering Facility: [facility] Address: [address] [place], [place] [address] Performed By: #### 2 4344-4 ####[facility] LABCLIA [id number] [facility] [address] [place] [address] [place] Oxygen adjusted to patient's actual temperature (BldV) [Partial pressure] 36 mmHg Normal 35-45 [facility] Comment on above: Order Comment: Speci men Type: VENOUS BLOOD SPECIMENOrdering Facility: [facility] Address: [address] [place] [address] Performed By: #### 2 4344-4 ####[facility] LABCLIA [id number] [address] [place] [address] [place] Oxygen saturation in Venous blood 62 % Normal 60-85 [facility] Comment on above: Order Comment: Speci men Type: VENOUS BLOOD SPECIMENOrdering Facility: [facility] Address: [address] [place] [address] Performed By: #### 2 4344-4 ####[facility] LABCLIA [id number] [address] [place] [address] [place] Oxyhemoglobin (BldV) [Mass fraction] 61 % Normal 60-85 [facility] Comment on above: Order Comment: Speci men Type: VENOUS BLOOD SPECIMENOrdering Facility: [facility] Address: [address] [place] [address] Performed By: #### 2 4344-4 ####[facility] LABCLIA [id number] [place] [address] [place] pH (BldV) 7.41 [pH] Normal 7.32-7.42 [facility] Comment on above: Order Comment: Speci men Type: VENOUS BLOOD SPECIMENOrdering Facility: [facility] Address: [address] [place] [address] Performed By: #### 2 4344-4 ####[facility] LABIA [id number] [place] [address] [place] pH adjusted to patient's actual temperature (BldV) 7.41 Normal 7.32-7.42 [facility] Comment on above: Order Comment: Speci men Type: VENOUS BLOOD SPECIMENOrdering Facility: [facility] Address: [address] [place] [address] Performed By: #### 2 4344-4 ####[facility] LABIA [id number] [place] [address] [place] Potassium [Moles/Vol] 4.2 mmol/L Normal 3.5-5.0 [facility] Comment on above: Order Comment: Speci men Type: VENOUS BLOOD SPECIMENOrdering Facility: [facility] Address: [address] [place] [address] Performed By: #### 2 4344-4 ####[facility] LABIA [id number] [place] [id number] [place] Sodium [Moles/Vol] 135 mmol/L Low 136-144 [facility] Comment on above: Order Comment: Speci men Type: VENOUS BLOOD SPECIMENOrdering Facility: [facility] Address: [address] [place] [address] Performed By: #### 2 4344-4 ####[facility] LABIA [id number] [place] [id number] [place] Base excess Calc (BldV) [Moles/Vol] 5 mmol/L High 0-2 [facility] Comment on above: Order Comment: Speci men Type: VENOUS BLOOD SPECIMENOrdering Facility: [facility] Address: [address] [place] [address] Performed By: #### 2 4344-4 ####[facility] LABCLIA [id number] [place] [address] [place] Calcium.ionized (Bld) [Mass/Vol] 1.12 mmol/L Normal 1.08-1.30 [facility] Comment on above: Order Comment: Speci men Type: VENOUS BLOOD SPECIMENOrdering Facility: [facility] Address: [address] [place] [address] Performed By: #### 2 4344-4 ####[facility] [id number] [place] [address] [place] Calcium.ionized adjusted to pH 7.4 (BldA) [Moles/Vol] 1.12 mmol/L Normal 1.08-1.30 [facility] Comment on above: Order Comment: Speci men Type: VENOUS BLOOD SPECIMENOrdering Facility: [facility] Address: [address] [place] [address] Performed By: #### 2 4344-4 ####[facility] LABIA [id number] [place] [address] [place] Carboxyhemoglobin (BldV) [Mass fraction] 1.1 % Normal 0.0-2.0 [facility] Comment on above: Order Comment: Speci men Type: VENOUS BLOOD SPECIMENOrdering Facility: [facility] Address: [address] [place] [address] Result Comment: Carb oxyhemoglobin Reference Range for Smokers: 2.0-8.0% Performed By: #### 2 4344-4 ####[facility] LABIA [id number] [place] [address] [place] CO2 (BldV) [Partial pressure] 51 mm[Hg] Normal 42-55 [facility] Comment on above: Order Comment: Speci men Type: VENOUS BLOOD SPECIMENOrdering Facility: [facility] Address: [address] [place] [address] Performed By: #### 2 4344-4 ####[facility] LABCLIA [id number] [place] [address] [place] Hematocrit (Bld) [Volume fraction] 25.9 % Low 39.0-51.0 [facility] Comment on above: Order Comment: Speci men Type: VENOUS BLOOD SPECIMENOrdering Facility: [facility] Address: [address] [place] [address] Performed By: #### 2 4344-4 ####[facility] LABCLIA [id number] [place] [address] [place] Hemoglobin (Bld) [Mass/Vol] 8.3 g/dL Low 13.0-17.0 [facility] Comment on above: Order Comment: Speci men Type: VENOUS BLOOD SPECIMENOrdering Facility: [facility] Address: [address] [place] [address] Performed By: #### 2 4344-4 ####[facility] LABCLIA [id number] [place] [address] [place] Lactate [Moles/Vol] 0.5 mmol/L Normal 0.5-2.2 [facility] Comment on above: Order Comment: Speci men Type: VENOUS BLOOD SPECIMENOrdering Facility: [facility] Address: [address] [place] [address] Performed By: #### 2 4344-4 ####[facility] LABCLIA [id number] [place] [address] [place] Methemoglobin (Bld) [Mass fraction] 1.0 % Normal 0.0-1.5 [facility] Comment on above: Order Comment: Speci men Type: VENOUS BLOOD SPECIMENOrdering Facility: [facility] Address: [address] [place] [id number] Performed By: #### 2 4344-4 ####[facility] LABCLIA [id number] [address] [address] [place] Oxygen (BldV) [Partial pressure] 29 mm[Hg] Low 35-45 [facility] Comment on above: Order Comment: Speci men Type: VENOUS BLOOD SPECIMENOrdering Facility: [facility] Address: [address] [place] [address] Performed By: #### 2 4344-4 ####[facility] LABCLIA [id number] [place] [id number] [place] Oxygen saturation in Venous blood 46 % Low 60-85 [facility] Comment on above: Order Comment: Speci men Type: VENOUS BLOOD SPECIMENOrdering Facility: [facility] Address: [address] [place] [address] Performed By: #### 2 4344-4 ####[facility] LABCLIA [id number] [place] [id number] [place] Oxyhemoglobin (BldV) [Mass fraction] 45 % Low 60-85 [facility] Comment on above: Order Comment: Speci men Type: VENOUS BLOOD SPECIMENOrdering Facility: [facility] Address: [address] [place] [address] Performed By: #### 2 4344-4 ####[facility] LABCLIA [id number] [address] [address] [place] pH (BldV) 7.39 [pH] Normal 7.32-7.42 [facility] Comment on above: Order Comment: Speci men Type: VENOUS BLOOD SPECIMENOrdering Facility: [facility] Address: [address] [place], [place] [address] Performed By: #### 2 4344-4 ####[facility] LABCLIA [id number] [address] [address] [place] Potassium [Moles/Vol] 4.4 mmol/L Normal 3.5-5.0 [facility] Comment on above: Order Comment: Speci men Type: VENOUS BLOOD SPECIMENOrdering Facility: [facility] Address: [address] [place] [address] Performed By: #### 2 4344-4 ####[facility] LABCLIA [id number] [place] [address] [place] Sodium [Moles/Vol] 135 mmol/L Low 136-144 [facility] Comment on above: Order Comment: Speci men Type: VENOUS BLOOD SPECIMENOrdering Facility: [facility] Address: [address] [place] [address] Performed By: #### 2 4344-4 ####[facility] LABCLIA [id number] [place] [address] [place] Base excess Calc (BldV) [Moles/Vol] 6 mmol/L High 0-2 [facility] Comment on above: Order Comment: Speci men Type: VENOUS BLOOD SPECIMENOrdering Facility: [facility] Address: [address] [place] [address] Performed By: #### 2 4344-4 ####[facility] LABCLIA [id number] [place] [address] [place] Body temperature 98.6 [degF] Normal [facility] Comment on above: Order Comment: Speci men Type: VENOUS BLOOD SPECIMENOrdering Facility: [facility] Address: [address] [place], [place] [address] Performed By: #### 2 4344-4 ####[facility] LABCLIA [id number] [place] [address] [place] Calcium.ionized (Bld) [Mass/Vol] 1.17 mmol/L Normal 1.08-1.30 [facility] Comment on above: Order Comment: Speci men Type: VENOUS BLOOD SPECIMENOrdering Facility: [facility] Address: [address] [place] [address] Performed By: #### 2 4344-4 ####[facility] LABIA [id number] [place] [address] [place] Calcium.ionized adjusted to pH 7.4 (BldA) [Moles/Vol] 1.15 mmol/L Normal 1.08-1.30 [facility] Comment on above: Order Comment: Speci men Type: VENOUS BLOOD SPECIMENOrdering Facility: [facility] Address: [address] [place] [address] Performed By: #### 2 4344-4 ####[facility] LABIA [id number] [place] [address] [place] Carboxyhemoglobin (BldV) [Mass fraction] 1.2 % Normal 0.0-2.0 [facility] Comment on above: Order Comment: Speci men Type: VENOUS BLOOD SPECIMENOrdering Facility: [facility] Address: [address] [place] [address] Result Comment: Carb oxyhemoglobin Reference Range for Smokers: 2.0-8.0% Performed By: #### 2 4344-4 ####[facility] LABIA [id number] [place] [address] [place] CO2 (BldV) [Partial pressure] 56 mm[Hg] High 42-55 [facility] Comment on above: Order Comment: Speci men Type: VENOUS BLOOD SPECIMENOrdering Facility: [facility] Address: [address] [place] [address] Performed By: #### 2 4344-4 ####[facility] LABIA [id number] [place] [address] [place] Glucose [Mass/Vol] 70 mg/dL Normal 60-105 [facility] Comment on above: Order Comment: Speci men Type: VENOUS BLOOD SPECIMENOrdering Facility: [facility] Address: [address] [place] [address] Performed By: #### 2 4344-4 ####[facility] LABCLIA [id number] [place] [address] [place] HCO3 (Bld) [Moles/Vol] 32 mmol/L High 24-28 [facility] Comment on above: Order Comment: Speci men Type: VENOUS BLOOD SPECIMENOrdering Facility: [facility] Address: [address] [place] [address] Performed By: #### 2 4344-4 ####[facility] LABCLIA [id number] [place] [address] [place] Hematocrit (Bld) [Volume fraction] 25.5 % Low 39.0-51.0 [facility] Comment on above: Order Comment: Speci men Type: VENOUS BLOOD SPECIMENOrdering Facility: [facility] Address: [address] [place] [address] Performed By: #### 2 4344-4 ####[facility] LABIA [id number] [place] [address] [place] Hemoglobin (Bld) [Mass/Vol] 8.2 g/dL Low 13.0-17.0 [facility] Comment on above: Order Comment: Speci men Type: VENOUS BLOOD SPECIMENOrdering Facility: [facility] Address: [address] [place] [address] Performed By: #### 2 4344-4 ####[facility] LABIA [id number] [place] [id number] [place] Lactate [Moles/Vol] 0.6 mmol/L Normal 0.5-2.2 [facility] Comment on above: Order Comment: Speci men Type: VENOUS BLOOD SPECIMENOrdering Facility: [facility] Address: [address] [place] [address] Performed By: #### 2 4344-4 ####[facility] LABIA [id number] [place] [id number] [place] LITERS 3 Liters/min Normal [facility] Comment on above: Order Comment: Speci men Type: VENOUS BLOOD SPECIMENOrdering Facility: [facility] Address: [address] [id number] Performed By: #### 2 4344-4 ####[facility] LABCLIA [id number] [address] [address] [place] Methemoglobin (Bld) [Mass fraction] 1.7 % High 0.0-1.5 [facility] Comment on above: Order Comment: Speci men Type: VENOUS BLOOD SPECIMENOrdering Facility: [facility] Address: [address] [place] [address] Performed By: #### 2 4344-4 ####[facility] LABCLIA [id number] [place] [id number] [place] O2 THERAPY NC = Nasal Cannula Normal [facility] Comment on above: Order Comment: Speci men Type: VENOUS BLOOD SPECIMENOrdering Facility: [facility] Address: [address] [place], [place] [address] Performed By: #### 2 4344-4 ####[facility] LABCLIA [id number] [place] [id number] [place] Oxygen (BldV) [Partial pressure] 31 mm[Hg] Low 35-45 [facility] Comment on above: Order Comment: Speci men Type: VENOUS BLOOD SPECIMENOrdering Facility: [facility] Address: [address] [id number] Performed By: #### 2 4344-4 ####[facility] LABCLIA [id number] [place] [id number] [place] Oxygen saturation in Venous blood 51 % Low 60-85 [facility] Comment on above: Order Comment: Speci men Type: VENOUS BLOOD SPECIMENOrdering Facility: [facility] Address: [address] [id number] Performed By: #### 2 4344-4 ####[facility] LABCLIA [id number] [address] [address] [place] Oxyhemoglobin (BldV) [Mass fraction] 49 % Low 60-85 [facility] Comment on above: Order Comment: Speci men Type: VENOUS BLOOD SPECIMENOrdering Facility: [facility] Address: [address] [place] [address] Performed By: #### 2 4344-4 ####[facility] LABCLIA [id number] [place] [id number] [place] pH (BldV) 7.37 [pH] Normal 7.32-7.42 [facility] Comment on above: Order Comment: Speci men Type: VENOUS BLOOD SPECIMENOrdering Facility: [facility] Address: [address] [place] [address] Performed By: #### 2 4344-4 ####[facility] LABIA [id number] [place] [id number] [place] Potassium [Moles/Vol] 4.4 mmol/L Normal 3.5-5.0 [facility] Comment on above: Order Comment: Speci men Type: VENOUS BLOOD SPECIMENOrdering Facility: [facility] Address: [address] [place] [address] Performed By: #### 2 4344-4 ####[facility] LABIA [id number] [place] [id number] [place] Sodium [Moles/Vol] 136 mmol/L Normal 136-144 [facility] Comment on above: Order Comment: Speci men Type: VENOUS BLOOD SPECIMENOrdering Facility: [facility] Address: [address] [place] [address] Performed By: #### 2 4344-4 ####[facility] LABCLIA [id number] [address] [address] [place] Base excess Calc (BldV) [Moles/Vol] 5 mmol/L High 0-2 [facility] Comment on above: Order Comment: Speci men Type: VENOUS BLOOD SPECIMENOrdering Facility: [facility] Address: [address] [place] [address] Performed By: #### 2 4344-4 ####[facility] LABIA [id number] [place] [id number] [place] Body temperature 98.6 [degF] Normal [facility] Comment on above: Order Comment: Speci men Type: VENOUS BLOOD SPECIMENOrdering Facility: [facility] Address: [address] [place] [address] Performed By: #### 2 4344-4 ####[facility] [id number] [place] [address] [place] Calcium.ionized (Bld) [Mass/Vol] 1.14 mmol/L Normal 1.08-1.30 [facility] Comment on above: Order Comment: Speci men Type: VENOUS BLOOD SPECIMENOrdering Facility: [facility] Address: [address] [place] [address] Performed By: #### 2 4344-4 ####[facility] [id number] [place] [address] [place] Calcium.ionized adjusted to pH 7.4 (BldA) [Moles/Vol] 1.12 mmol/L Normal 1.08-1.30 [facility] Comment on above: Order Comment: Speci men Type: VENOUS BLOOD SPECIMENOrdering Facility: [facility] Address: [address] [place], [place] [address] Performed By: #### 2 4344-4 ####[facility] [id number] [place] [id number] [place] Carboxyhemoglobin (BldV) [Mass fraction] 1.0 % Normal 0.0-2.0 [facility] Comment on above: Order Comment: Speci men Type: VENOUS BLOOD SPECIMENOrdering Facility: [facility] Address: [address] [place] [address] Result Comment: Carb oxyhemoglobin Reference Range for Smokers: 2.0-8.0% Performed By: #### 2 4344-4 ####[facility] LABCLIA [id number] [address] [address] [place] CO2 (BldV) [Partial pressure] 54 mm[Hg] Normal 42-55 [facility] Comment on above: Order Comment: Speci men Type: VENOUS BLOOD SPECIMENOrdering Facility: [facility] Address: [address] [place] [address] Performed By: #### 2 4344-4 ####[facility] LABCLIA [id number] [place] [address] [place] Glucose [Mass/Vol] 94 mg/dL Normal 60-105 [facility] Comment on above: Order Comment: Speci men Type: VENOUS BLOOD SPECIMENOrdering Facility: [facility] Address: [address] [place] [address] Performed By: #### 2 4344-4 ####[facility] LABCLIA [id number] [place] [address] [place] HCO3 (Bld) [Moles/Vol] 31 mmol/L High 24-28 [facility] Comment on above: Order Comment: Speci men Type: VENOUS BLOOD SPECIMENOrdering Facility: [facility] Address: [address] [place] [address] Performed By: #### 2 4344-4 ####[facility] LABCLIA [id number] [place] [id number] [place] Hematocrit (Bld) [Volume fraction] 24.3 % Low 39.0-51.0 [facility] Comment on above: Order Comment: Speci men Type: VENOUS BLOOD SPECIMENOrdering Facility: [facility] Address: [address] [place] [address] Performed By: #### 2 4344-4 ####[facility] LABCLIA [id number] [address] [address] [place] Hemoglobin (Bld) [Mass/Vol] 7.8 g/dL Low 13.0-17.0 [facility] Comment on above: Order Comment: Speci men Type: VENOUS BLOOD SPECIMENOrdering Facility: [facility] Address: [address] [place] [address] Performed By: #### 2 4344-4 ####[facility] LABCLIA [id number] [address] [address] [place] Lactate [Moles/Vol] 0.7 mmol/L Normal 0.5-2.2 [facility] Comment on above: Order Comment: Speci men Type: VENOUS BLOOD SPECIMENOrdering Facility: [facility] Address: [address] [place] [address] Performed By: #### 2 4344-4 ####[facility] LABCLIA [id number] [place] [id number] [place] LITERS 3 Liters/min Normal [facility] Comment on above: Order Comment: Speci men Type: VENOUS BLOOD SPECIMENOrdering Facility: [facility] Address: [address] [place], [place] [address] Performed By: #### 2 4344-4 ####[facility] LABCLIA [id number] [place] [address] [place] Methemoglobin (Bld) [Mass fraction] 1.0 % Normal 0.0-1.5 [facility] Comment on above: Order Comment: Speci men Type: VENOUS BLOOD SPECIMENOrdering Facility: [facility] Address: [address] [place], [place] [address] Performed By: #### 2 4344-4 ####[facility] LABCLIA [id number] [address] [address] [place] O2 THERAPY NC = Nasal Cannula Normal [facility] Comment on above: Order Comment: Speci men Type: VENOUS BLOOD SPECIMENOrdering Facility: [facility] Address: [address] [place], [place] [address] Performed By: #### 2 4344-4 ####[facility] LABCLIA [id number] [address] [address] [place] Oxygen (BldV) [Partial pressure] 33 mm[Hg] Low 35-45 [facility] Comment on above: Order Comment: Speci men Type: VENOUS BLOOD SPECIMENOrdering Facility: [facility] Address: [address] [place], [place] [address] Performed By: #### 2 4344-4 ####[facility] LABCLIA [id number] [address] [address] [place] Oxygen saturation in Venous blood 54 % Low 60-85 [facility] Comment on above: Order Comment: Speci men Type: VENOUS BLOOD SPECIMENOrdering Facility: [facility] Address: [address] [place] [address] Performed By: #### 2 4344-4 ####[facility] LABCLIA [id number] [address] [address] [place] Oxyhemoglobin (BldV) [Mass fraction] 53 % Low 60-85 [facility] Comment on above: Order Comment: Speci men Type: VENOUS BLOOD SPECIMENOrdering Facility: [facility] Address: [address] [place], [place] [address] Performed By: #### 2 4344-4 ####[facility] LABCLIA [id number] [address] [address] [place] pH (BldV) 7.38 [pH] Normal 7.32-7.42 [facility] Comment on above: Order Comment: Speci men Type: VENOUS BLOOD SPECIMENOrdering Facility: [facility] Address: [address] [place], [place] [address] Performed By: #### 2 4344-4 ####[facility] LABCLIA [id number] [place] [address] [place] Potassium [Moles/Vol] 4.4 mmol/L Normal 3.5-5.0 [facility] Comment on above: Order Comment: Speci men Type: VENOUS BLOOD SPECIMENOrdering Facility: [facility] Address: [address] [place] [address] Performed By: #### 2 4344-4 ####[facility] LABCLIA [id number] [place] [address] [place] Sodium [Moles/Vol] 134 mmol/L Low 136-144 [facility] Comment on above: Order Comment: Speci men Type: VENOUS BLOOD SPECIMENOrdering Facility: [facility] Address: [address] [place] [address] Performed By: #### 2 4344-4 ####[facility] LABCLIA [id number] [place] [address] [place] Haptoglob SerPl-mCncon 10-23 Haptoglobin [Mass/Vol] mg/dL Low 31-238 [facility] Comment on above: Order Comment: Speci men Type: BLOOD SPECIMENOrdering Facility: [facility] Address: [address] [place] [address] Performed By: #### 2 4323-8, 96755-5, 4542-7, 2777-1 ####[facility] LABIA [id number] [place] [id number] [place] INTRAOPERATIVE ECHO Angelic 0 10-23-2024 INTRAOPERATIVE ECHO POST Normal [facility] Magnesium SerPl-mCncon 10-23 Magnesium [Mass/Vol] 1.9 mg/dL Normal 1.7-2.3 [facility] Comment on above: Order Comment: Speci men Type: BLOOD SPECIMENOrdering Facility: [facility] Address: [address] [place] [address] Performed By: #### 2 4323-8, 31865-2, 4542-7, 2777-1 ####[facility] LABCLIA [id number] [place] [id number] [place] Magnesium [Mass/Vol] 2.0 mg/dL Normal 1.7-2.3 [facility] Comment on above: Order Comment: Gini nowak Type: BLOOD SPECIMENOrdering Facility: [facility] Address: [address] [place] [address] Performed By: #### 1 9123-9, 2777-1, 24875-5 ####[facility] LABCLIA [id number] [place] [id number] [place] NUTRITIONon 10-23-2024 NUTRITION Normal [facility] OPERATIVE NOon 10-23-2024 OPERATIVE NO Normal [facility] PT panel Coag (PPP)on 2024 INR Coag (PPP) [Relative time] 1.3 {INR} Normal 0.9-1.3 [facility] Comment on above: Order Comment: Specsonja nowak Type: BLOOD SPECIMENOrdering Facility: [facility] Address: [address] [place] [address] Result Comment: Nettie min K Antagonist (VKA) Therapeutic Range: INR 2 to 3 (Target INR of 2.5)Note: For patients treated with VKA drugs, such as warfarin, the [place] [employer] 2012 Guideline recommends [...] 70: 252-289 Performed By: #### 3 4528-0 ####[facility] LABIA [id number] [place] [address] [place] PT Coag (PPP) [Time] 13.9 s High 9.7-13.0 [facility] Comment on above: Order Comment: Speci men Type: BLOOD SPECIMENOrdering Facility: [facility] Address: [address] [place] [address] Performed By: #### 3 4528-0 ####[facility] [id number] [address] [place] INR Coag (PPP) [Relative time] 1.3 {INR} Normal 0.9-1.3 [facility] Comment on above: Order Comment: Speci men Type: BLOOD SPECIMENOrdering Facility: [facility] Address: [address] [place] [address] Result Comment: Nettie min K Antagonist (VKA) Therapeutic Range: INR 2 to 3 (Target INR of 2.5)Note: For patients treated with VKA drugs, such as warfarin, the [place] [employer] 2012 Guideline recommends [...] al. Chest 2012, 141:7S-47SNishimura RA, et al. [facility] 2017, 70: 252-289 Performed By: #### 3 4528-0, 3217-7 ####[facility] [id number] [place] [address] [place] PT Coag (PPP) [Time] 14.0 s High 9.7-13.0 [facility] Comment on above: Order Comment: Speci men Type: BLOOD SPECIMENOrdering Facility: [facility] Address: [address] [place] [address] Performed By: #### 3 4528-0, 3217-7 ####[facility] LABCLIA [id number] [place] [id number] [place] Phosphate SerPl-mCncon 10-23 Phosphate [Mass/Vol] 3.5 mg/dL Normal 2.7-4.8 [facility] Comment on above: Order Comment: Speci men Type: BLOOD SPECIMENOrdering Facility: [facility] Address: [address] [place] [address] Performed By: #### 2 4323-8, 39344-4, 4542-7, 2777-1 ####[facility] LABCLIA [id number] [place] [address] [place] Phosphate [Mass/Vol] 3.4 mg/dL Normal 2.7-4.8 [facility] Comment on above: Order Comment: Speci men Type: BLOOD SPECIMENOrdering Facility: [facility] Address: [address] [place] [address] Performed By: #### 1 9123-9, 2777-1, 42028-6 ####[facility] LABCLIA [id number] [place] [id number] [place] TAVR PROCEDURE REPORTon 10-09 TAVR PROCEDURE REPORT Normal [facility] THERAPY NTon 10-23-2024 THERAPY NT Normal [facility] THERAPY NT Normal [facility] XR CHEST 1V FRONTAL PORTon 0 10-23-2024 XR CHEST 1V FRONTAL PORT Normal [facility] ARTERIAL BLOOD GASESon 10-22 Base excess Calc (Bld) [Moles/Vol] 5 mmol/L High 0-2 [facility] Comment on above: Order Comment: Speci men Type: ARTERIAL BLOOD SPECIMENOrdering Facility: [facility] Address: [address] [place] [address] Performed By: #### A LLBG ####[facility] LABCLIA [id number] [place] [address] [place] Body temperature 97.52 [degF] Normal [facility] Comment on above: Order Comment: Speci men Type: ARTERIAL BLOOD SPECIMENOrdering Facility: [facility] Address: [address] [place] [address] Performed By: #### A LLBG ####[facility] LABCLIA [id number] [place] [address] [place] Order Comment: Speci men Type: VENOUS BLOOD SPECIMENOrdering Facility: [facility] Address: [address] [place] [address] Performed By: #### 2 4344-4 ####[facility] LABCLIA [id number] [place] [address] [place] Calcium.ionized (Bld) [Mass/Vol] 1.16 mmol/L Normal 1.08-1.30 [facility] Comment on above: Order Comment: Speci men Type: ARTERIAL BLOOD SPECIMENOrdering Facility: [facility] Address: [address] [place] [address] Performed By: #### A LLBG ####[facility] LABCLIA [id number] [place] [address] [place] Calcium.ionized adjusted to pH 7.4 (BldA) [Moles/Vol] 1.15 mmol/L Normal 1.08-1.30 [facility] Comment on above: Order Comment: Speci men Type: ARTERIAL BLOOD SPECIMENOrdering Facility: [facility] Address: [address] [place] [address] Performed By: #### A LLBG ####[facility] LABCLIA [id number] [place] [id number] [place] Carboxyhemoglobin (BldA) [Mass fraction] 1.3 % Normal 0.0-2.0 [facility] Comment on above: Order Comment: Speci men Type: ARTERIAL BLOOD SPECIMENOrdering Facility: [facility] Address: [address] [place] [address] Result Comment: Carb oxyhemoglobin Reference Range for Smokers: 2.0-8.0% Performed By: #### A LLBG ####[facility] LABCLIA [id number] [place] [address] [place] CO2 (Bld) [Partial pressure] 53 mm Hg High 36-46 [facility] Comment on above: Order Comment: Speci men Type: ARTERIAL BLOOD SPECIMENOrdering Facility: [facility] Address: [address] [place] [address] Performed By: #### A LLBG ####[facility] LABCLIA [id number] [place] [address] [place] CO2 adjusted to patient's actual temperature (Bld) [Partial pressure] 51 mmHg High 36-46 [facility] Comment on above: Order Comment: Speci men Type: ARTERIAL BLOOD SPECIMENOrdering Facility: [facility] Address: [address] [place] [address] Performed By: #### A LLBG ####[facility] LABCLIA [id number] [address] [address] [place] Glucose [Mass/Vol] 155 mg/dL High 60-105 [facility] Comment on above: Order Comment: Speci men Type: ARTERIAL BLOOD SPECIMENOrdering Facility: [facility] Address: [address] [place] [address] Performed By: #### A LLBG ####[facility] LABCLIA [id number] [place] [id number] [place] HCO3 (Bld) [Moles/Vol] 31 mmol/L High 22-26 [facility] Comment on above: Order Comment: Speci men Type: ARTERIAL BLOOD SPECIMENOrdering Facility: [facility] Address: [address] [place] [address] Performed By: #### A LLBG ####[facility] LABCLIA [id number] [place] [address] [place] Hematocrit (Bld) [Volume fraction] 27.8 % Low 39.0-51.0 [facility] Comment on above: Order Comment: Speci men Type: ARTERIAL BLOOD SPECIMENOrdering Facility: [facility] Address: [address] [place] [address] Performed By: #### A LLBG ####[facility] LABIA [id number] [place] [address] [place] Hemoglobin (Bld) [Mass/Vol] 9.0 g/dL Low 13.0-17.0 [facility] Comment on above: Order Comment: Speci men Type: ARTERIAL BLOOD SPECIMENOrdering Facility: [facility] Address: [address] [place] [address] Performed By: #### A LLBG ####[facility] LABIA [id number] [place] [address] [place] Lactate [Moles/Vol] 0.5 mmol/L Normal 0.5-2.2 [facility] Comment on above: Order Comment: Speci men Type: ARTERIAL BLOOD SPECIMENOrdering Facility: [facility] Address: [address] [place] [address] Performed By: #### A LLBG ####[facility] LABCLIA [id number] [place] [address] [place] LITERS 4 Liters/min Normal [facility] Comment on above: Order Comment: Speci men Type: ARTERIAL BLOOD SPECIMENOrdering Facility: [facility] Address: [address] [place] [address] Performed By: #### A LLBG ####[facility] LABCLIA [id number] [place] [address] [place] Order Comment: Speci men Type: VENOUS BLOOD SPECIMENOrdering Facility: [facility] Address: [address] [place] [id number] Performed By: #### 2 4344-4 ####[facility] LABCLIA [id number] [address] [place] [address] [place] Methemoglobin (Bld) [Mass fraction] 1.6 % High 0.0-1.5 [facility] Comment on above: Order Comment: Speci men Type: ARTERIAL BLOOD SPECIMENOrdering Facility: [facility] Address: [address] [place], [place] [address] Performed By: #### A LLBG ####[facility] LABCLIA [id number] [address] [place] [address] [place] O2 THERAPY NC = Nasal Cannula Normal [facility] Comment on above: Order Comment: Speci men Type: ARTERIAL BLOOD SPECIMENOrdering Facility: [facility] Address: [address] [place] [address] Performed By: #### A LLBG ####[facility] LABCLIA [id number] [address] [place] [address] [place] Order Comment: Speci men Type: VENOUS BLOOD SPECIMENOrdering Facility: [facility] Address: [address] [place], [place] [address] Performed By: #### 2 4344-4 ####[facility] LABCLIA [id number] [address] [place] [address] [place] Oxygen (Bld) [Partial pressure] 96 mm Hg High 85-95 [facility] Comment on above: Order Comment: Speci men Type: ARTERIAL BLOOD SPECIMENOrdering Facility: [facility] Address: [address] [place] [id number] Performed By: #### A LLBG ####[facility] LABCLIA [id number] [address] [place] [address] [place] Oxygen adjusted to patient's actual temperature (Bld) [Partial pressure] 93 mmHg Normal 85-95 [facility] Comment on above: Order Comment: Speci men Type: ARTERIAL BLOOD SPECIMENOrdering Facility: [facility] Address: [address] [place] [address] Performed By: #### A LLBG ####[facility] LABCLIA [id number] [address] [address] [place] Oxyhemoglobin (BldA) [Mass fraction] 94 % Low 95-98 [facility] Comment on above: Order Comment: Speci men Type: ARTERIAL BLOOD SPECIMENOrdering Facility: [facility] Address: [address] [place] [address] Performed By: #### A LLBG ####[facility] LABIA [id number] [address] [address] [place] pH (Bld) 7.38 [pH] Normal 7.35-7.45 [facility] Comment on above: Order Comment: Speci men Type: ARTERIAL BLOOD SPECIMENOrdering Facility: [facility] Address: [address] [place] [address] Performed By: #### A LLBG ####[facility] LABIA [id number] [place] [address] [place] pH adjusted to patient's actual temperature (Bld) 7.39 Normal 7.35-7.45 [facility] Comment on above: Order Comment: Speci men Type: ARTERIAL BLOOD SPECIMENOrdering Facility: [facility] Address: [address] [place] [address] Performed By: #### A LLBG ####[facility] LABIA [id number] [place] [id number] [place] Potassium [Moles/Vol] 4.4 mmol/L Normal 3.5-5.0 [facility] Comment on above: Order Comment: Speci men Type: ARTERIAL BLOOD SPECIMENOrdering Facility: [facility] Address: [address] [place] [address] Performed By: #### A LLBG ####[facility] LABCLIA [id number] [place] [address] [place] Sodium [Moles/Vol] 131 mmol/L Low 136-144 [facility] Comment on above: Order Comment: Speci men Type: ARTERIAL BLOOD SPECIMENOrdering Facility: [facility] Address: [address] [place] [address] Performed By: #### A LLBG ####[facility] LABCLIA [id number] [place] [address] [place] Base excess Calc (Bld) [Moles/Vol] 6 mmol/L High 0-2 [facility] Comment on above: Order Comment: Speci men Type: ARTERIAL BLOOD SPECIMENOrdering Facility: [facility] Address: [address] [place] [address] Performed By: #### A LLBG ####[facility] LABIA [id number] [place] [address] [place] Body temperature 98.6 [degF] Normal [facility] Comment on above: Order Comment: Speci men Type: ARTERIAL BLOOD SPECIMENOrdering Facility: [facility] Address: [address] [place] [address] Performed By: #### A LLBG ####[facility] LABIA [id number] [place] [address] [place] Calcium.ionized (Bld) [Mass/Vol] 1.15 mmol/L Normal 1.08-1.30 [facility] Comment on above: Order Comment: Speci men Type: ARTERIAL BLOOD SPECIMENOrdering Facility: [facility] Address: [address] [place] [address] Performed By: #### A LLBG ####[facility] LABCLIA [id number] [place] [address] [place] Calcium.ionized adjusted to pH 7.4 (BldA) [Moles/Vol] 1.16 mmol/L Normal 1.08-1.30 [facility] Comment on above: Order Comment: Speci men Type: ARTERIAL BLOOD SPECIMENOrdering Facility: [facility] Address: [address] [place] [address] Performed By: #### A LLBG ####[facility] LABCLIA [id number] [place] [address] [place] Carboxyhemoglobin (BldA) [Mass fraction] 0.4 % Normal 0.0-2.0 [facility] Comment on above: Order Comment: Speci men Type: ARTERIAL BLOOD SPECIMENOrdering Facility: [facility] Address: [address] [place] [address] Result Comment: Carb oxyhemoglobin Reference Range for Smokers: 2.0-8.0% Performed By: #### A LLBG ####[facility] LABCLIA [id number] [place] [address] [place] CO2 (Bld) [Partial pressure] 47 mm Hg High 36-46 [facility] Comment on above: Order Comment: Speci men Type: ARTERIAL BLOOD SPECIMENOrdering Facility: [facility] Address: [address] [place] [address] Performed By: #### A LLBG ####[facility] LABCLIA [id number] [place] [address] [place] Glucose [Mass/Vol] 157 mg/dL High 60-105 [facility] Comment on above: Order Comment: Speci men Type: ARTERIAL BLOOD SPECIMENOrdering Facility: [facility] Address: [address] [place] [address] Performed By: #### A LLBG ####[facility] LABCLIA [id number] [place] [address] [place] HCO3 (Bld) [Moles/Vol] 31 mmol/L High 22-26 [facility] Comment on above: Order Comment: Speci men Type: ARTERIAL BLOOD SPECIMENOrdering Facility: [facility] Address: [address] [place] [address] Performed By: #### A LLBG ####[facility] LABCLIA [id number] [place] [address] [place] Hematocrit (Bld) [Volume fraction] 28.2 % Low 39.0-51.0 [facility] Comment on above: Order Comment: Speci men Type: ARTERIAL BLOOD SPECIMENOrdering Facility: [facility] Address: [address] [place] [address] Performed By: #### A LLBG ####[facility] LABIA [id number] [place] [address] [place] Hemoglobin (Bld) [Mass/Vol] 9.1 g/dL Low 13.0-17.0 [facility] Comment on above: Order Comment: Speci men Type: ARTERIAL BLOOD SPECIMENOrdering Facility: [facility] Address: [address] [place] [address] Performed By: #### A LLBG ####[facility] LABIA [id number] [place] [address] [place] Lactate [Moles/Vol] 0.9 mmol/L Normal 0.5-2.2 [facility] Comment on above: Order Comment: Speci men Type: ARTERIAL BLOOD SPECIMENOrdering Facility: [facility] Address: [address] [place] [address] Performed By: #### A LLBG ####[facility] LABCLIA [id number] [place] [address] [place] LITERS 5 Liters/min Normal [facility] Comment on above: Order Comment: Speci men Type: ARTERIAL BLOOD SPECIMENOrdering Facility: [facility] Address: [address] [place] [address] Performed By: #### A LLBG ####[facility] LABIA [id number] [place] [address] [place] Methemoglobin (Bld) [Mass fraction] 1.4 % Normal 0.0-1.5 [facility] Comment on above: Order Comment: Speci men Type: ARTERIAL BLOOD SPECIMENOrdering Facility: [facility] Address: [address] [place] [address] Performed By: #### A LLBG ####[facility] LABCLIA [id number] [place] [id number] [place] O2 THERAPY NC = Nasal Cannula Normal [facility] Comment on above: Order Comment: Speci men Type: ARTERIAL BLOOD SPECIMENOrdering Facility: [facility] Address: [address] [place] [address] Performed By: #### A LLBG ####[facility] LABCLIA [id number] [place] [id number] [place] Oxygen (Bld) [Partial pressure] 79 mm Hg Low 85-95 [facility] Comment on above: Order Comment: Speci men Type: ARTERIAL BLOOD SPECIMENOrdering Facility: [facility] Address: [address] [place] [address] Performed By: #### A LLBG ####[facility] LABCLIA [id number] [address] [place] Oxyhemoglobin (BldA) [Mass fraction] 94 % Low 95-98 [facility] Comment on above: Order Comment: Speci men Type: ARTERIAL BLOOD SPECIMENOrdering Facility: [facility] Address: [address] [place] [address] Performed By: #### A LLBG ####[facility] LABCLIA [id number] [place] [id number] [place] pH (Bld) 7.43 [pH] Normal 7.35-7.45 [facility] Comment on above: Order Comment: Speci men Type: ARTERIAL BLOOD SPECIMENOrdering Facility: [facility] Address: [address] [place] [address] Performed By: #### A LLBG ####[facility] LABCLIA [id number] [place] [id number] [place] Potassium [Moles/Vol] 4.5 mmol/L Normal 3.5-5.0 [facility] Comment on above: Order Comment: Speci men Type: ARTERIAL BLOOD SPECIMENOrdering Facility: [facility] Address: [address] [place] [address] Performed By: #### A LLBG ####[facility] LABCLIA [id number] [place] [address] [place] Sodium [Moles/Vol] 132 mmol/L Low 136-144 [facility] Comment on above: Order Comment: Speci men Type: ARTERIAL BLOOD SPECIMENOrdering Facility: [facility] Address: [address] [place] [address] Performed By: #### A LLBG ####[facility] LABCLIA [id number] [place] [address] [place] CBC panel Auto (Bld)on 10-22 Erythrocyte distribution width (RBC) [Ratio] 16.9 % High 11.5-15.0 [facility] Comment on above: Order Comment: Speci men Type: BLOOD SPECIMENOrdering Facility: [facility] Address: [address] [place] [address] Performed By: #### 5 8410-2 ####[facility] LABIA [id number] [place] [address] [place] Hematocrit (Bld) [Volume fraction] 27.1 % Low 39.0-51.0 [facility] Comment on above: Order Comment: Speci men Type: BLOOD SPECIMENOrdering Facility: [facility] Address: [address] [place] [address] Performed By: #### 5 8410-2 ####[facility] LABCLIA [id number] [place] [address] [place] Hemoglobin (Bld) [Mass/Vol] 8.7 g/dL Low 13.0-17.0 [facility] Comment on above: Order Comment: Speci men Type: BLOOD SPECIMENOrdering Facility: [facility] Address: [address] [place] [address] Performed By: #### 5 8410-2 ####[facility] LABCLIA [id number] [place] [address] [place] MCH (RBC) [Entitic mass] 32.0 pg Normal 26.0-34.0 [facility] Comment on above: Order Comment: Speci men Type: BLOOD SPECIMENOrdering Facility: [facility] Address: [address] [place] [address] Performed By: #### 5 8410-2 ####[facility] LABIA [id number] [address] [place] MCHC (RBC) [Mass/Vol] 32.1 g/dL Normal 30.5-36.0 [facility] Comment on above: Order Comment: Speci men Type: BLOOD SPECIMENOrdering Facility: [facility] Address: [address] [place] [address] Performed By: #### 5 8410-2 ####[facility] LABIA [id number] [address] [place] MCV (RBC) [Entitic vol] 99.6 fL Normal 80.0-100.0 [facility] Comment on above: Order Comment: Speci men Type: BLOOD SPECIMENOrdering Facility: [facility] Address: [address] [place] [address] Performed By: #### 5 8410-2 ####[facility] LABIA [id number] [address] [place] Nucleated RBC (Bld) [#/Vol] 10*3/uL Normal <0.01 [facility] Comment on above: Order Comment: Speci men Type: BLOOD SPECIMENOrdering Facility: [facility] Address: [address] [place] [address] Performed By: #### 5 8410-2 ####[facility] [id number] [place] [address] [place] Platelet mean volume (Bld) [Entitic vol] 11.8 fL Normal 9.0-12.7 [facility] Comment on above: Order Comment: Speci men Type: BLOOD SPECIMENOrdering Facility: [facility] Address: [address] [place] [address] Performed By: #### 5 8410-2 ####[facility] [id number] [place] [address] [place] Platelets (Bld) [#/Vol] 116 10*3/uL Low 150-400 [facility] Comment on above: Order Comment: Speci men Type: BLOOD SPECIMENOrdering Facility: [facility] Address: [address] [place] [address] Result Comment: No c lot detected.Results checked and verified. Performed By: #### 5 8410-2 ####[facility] [id number] [place] [address] [place] RBC (Bld) [#/Vol] 2.72 10*6/uL Low 4.20-6.00 [facility] Comment on above: Order Comment: Speci men Type: BLOOD SPECIMENOrdering Facility: [facility] Address: [address] [place] [address] Performed By: #### 5 8410-2 ####[facility] [id number] [place] [address] [place] WBC (Bld) [#/Vol] 5.75 10*3/uL Normal 3.70-11.00 [facility] Comment on above: Order Comment: Speci men Type: BLOOD SPECIMENOrdering Facility: [facility] Address: [address] [place] [address] Performed By: #### 5 8410-2 ####[facility] LABIA [id number] [address] [address] [place] Comprehensive metabolic 2000 panelon 10-22-2024 Albumin [Mass/Vol] 2.5 g/dL Low 3.9-4.9 [facility] Comment on above: Order Comment: Speci men Type: BLOOD SPECIMENOrdering Facility: [facility] Address: [address] [place] [address] Performed By: #### 2 4323-8, , 2776-02 ####[facility] LABIA [id number] [place] [address] [place] ALP [Catalytic activity/Vol] 90 U/L Normal 38-113 [facility] Comment on above: Order Comment: Speci men Type: BLOOD SPECIMENOrdering Facility: [facility] Address: [address] [place] [address] Performed By: #### 2 4323-8, , 2776-02 ####[facility] LABIA [id number] [place] [id number] [place] ALT [Catalytic activity/Vol] 11 U/L Normal 10-54 [facility] Comment on above: Order Comment: Speci men Type: BLOOD SPECIMENOrdering Facility: [facility] Address: [address] [place] [address] Performed By: #### 2 4323-8, , 2776-02 ####[facility] LABIA [id number] [address] [address] [place] Anion gap [Moles/Vol] 12 mmol/L Normal 8-15 [facility] Comment on above: Order Comment: Speci men Type: BLOOD SPECIMENOrdering Facility: [facility] Address: [address] [place], [place] [address] Performed By: #### 2 4323-8, , 2776-02 ####[facility] LABCLIA [id number] [address] [address] [place] AST [Catalytic activity/Vol] 19 U/L Normal 14-40 [facility] Comment on above: Order Comment: Speci men Type: BLOOD SPECIMENOrdering Facility: [facility] Address: [address] [place], [place] [address] Performed By: #### 2 4323-8, , 2776-02 ####[facility] LABCLIA [id number] [address] [address] [place] Bilirubin [Mass/Vol] 0.3 mg/dL Normal 0.2-1.3 [facility] Comment on above: Order Comment: Speci men Type: BLOOD SPECIMENOrdering Facility: [facility] Address: [address] [place], [place] [address] Performed By: #### 2 4323-8, , 2776-02 ####[facility] LABCLIA [id number] [address] [address] [place] Calcium [Mass/Vol] 8.3 mg/dL Low 8.5-10.2 [facility] Comment on above: Order Comment: Speci men Type: BLOOD SPECIMENOrdering Facility: [facility] Address: [address] [place], [place] [address] Performed By: #### 2 4323-8, , 2776-02 ####[facility] LABCLIA [id number] [address] [address] [place] Chloride [Moles/Vol] 98 mmol/L Normal 98-107 [facility] Comment on above: Order Comment: Speci men Type: BLOOD SPECIMENOrdering Facility: [facility] Address: [address] [place] [address] Performed By: #### 2 4323-8, , 2776-02 ####[facility] LABCLIA [id number] [place] [id number] [place] CO2 [Moles/Vol] 25 mmol/L Normal 22-30 [facility] Comment on above: Order Comment: Speci men Type: BLOOD SPECIMENOrdering Facility: [facility] Address: [address] [place] [address] Performed By: #### 2 4323-8, , 2776-02 ####[facility] LABCLIA [id number] [place] [id number] [place] Creatinine [Mass/Vol] 1.38 mg/dL High 0.73-1.22 [facility] Comment on above: Order Comment: Speci men Type: BLOOD SPECIMENOrdering Facility: [facility] Address: [address] [place] [address] Performed By: #### 2 4323-8, , 2776-02 ####[facility] LABIA [id number] [place] [id number] [place] eGFRcr SerPlBld CKD-EPI 2020 58 mL/min/1.73m??? Low >=60 [facility] Comment on above: Order Comment: Speci men Type: BLOOD SPECIMENOrdering Facility: [facility] Address: [address] [place] [address] Result Comment: Gurwinder mated Glomerular Filtration Rate [...] Performed By: #### 2 4323-8, , 2776-02 ####[facility] LABCLIA [id number] [address] [address] [place] Glucose [Mass/Vol] 157 mg/dL High 74-99 [facility] Comment on above: Order Comment: Gini nowak Type: BLOOD SPECIMENOrdering Facility: [facility] Address: [address] [place], [place] [address] Result Comment: The [place] [employer] (ADA) provides guidance for cutoff [...] Standards of Medical Care in Diabetes 2016, [place] [employer]. Diabetes Care. 2016.39(Suppl 1). Performed By: #### 2 4323-8, , 2776- ####[facility] LABCLIA [id number] [place] [address] [place] Potassium [Moles/Vol] 4.7 mmol/L Normal 3.7-5.1 [facility] Comment on above: Order Comment: Gini nowak Type: BLOOD SPECIMENOrdering Facility: [facility] Address: [address] [place] [address] Performed By: #### 2 4323-8, , 2776-02 ####[facility] LABCLIA [id number] [place] [id number] [place] Protein [Mass/Vol] 5.1 g/dL Low 6.3-8.0 [facility] Comment on above: Order Comment: Gini nowak Type: BLOOD SPECIMENOrdering Facility: [facility] Address: [address] [place] [address] Performed By: #### 2 4323-8, , 2776-02 ####[facility] LABCLIA [id number] [address] [address] [place] Sodium [Moles/Vol] 135 mmol/L Low 136-144 [facility] Comment on above: Order Comment: Speci men Type: BLOOD SPECIMENOrdering Facility: [facility] Address: [address] [place] [address] Performed By: #### 2 4323-8, 15952-4, 2777-1 ####[facility] LABCLIA [id number] [place] [address] [place] Urea nitrogen [Mass/Vol] 21 mg/dL Normal 9-24 [facility] Comment on above: Order Comment: Speci men Type: BLOOD SPECIMENOrdering Facility: [facility] Address: [address] [place] [address] Performed By: #### 2 4323-8, , 2776-02 ####[facility] LABIA [id number] [place] [address] [place] Fact Xa PPP-aCncon Coagulation factor X activated act Coag Qn (PPP) 0.53 IU/mL High <0.10 [facility] Comment on above: Order Comment: Corbyi eliu Type: BLOOD SPECIMENOrdering Facility: [facility] Address: [address] [place] [address] Result Comment: The recommended therapeutic range for treatment of venous and arterial thrombosis with intravenous unfractionated heparin is an anti Xa activity level of 0.3 to 0.7 IU/mL. In patients with concomitant therapy with thrombolytic agents and/or platelet glycoprotein IIb/IIIa antagonists, the recommended therapeutic range is an anti Xa activity level of 0.2 to 0.5 IU/mL. Performed By: #### 3 217-7 ####[facility] LABIA [id number] [place] [address] [place] Gas and Carbon monoxide pane l (BldV)on 10-22-2024 Base excess Calc (BldV) [Moles/Vol] 6 mmol/L High 0-2 [facility] Comment on above: Order Comment: Speci men Type: VENOUS BLOOD SPECIMENOrdering Facility: [facility] Address: [address] [place] [address] Performed By: #### 2 4344-4 ####[facility] LABIA [id number] [place] [address] [place] Body temperature 98.6 [degF] Normal [facility] Comment on above: Order Comment: Speci men Type: VENOUS BLOOD SPECIMENOrdering Facility: [facility] Address: [address] [place] [address] Performed By: #### 2 4344-4 ####[facility] LABIA [id number] [place] [address] [place] Calcium.ionized (Bld) [Mass/Vol] 1.13 mmol/L Normal 1.08-1.30 [facility] Comment on above: Order Comment: Speci men Type: VENOUS BLOOD SPECIMENOrdering Facility: [facility] Address: [address] [place] [address] Performed By: #### 2 4344-4 ####[facility] [id number] [place] [address] [place] Calcium.ionized adjusted to pH 7.4 (BldA) [Moles/Vol] 1.13 mmol/L Normal 1.08-1.30 [facility] Comment on above: Order Comment: Speci men Type: VENOUS BLOOD SPECIMENOrdering Facility: [facility] Address: [address] [place] [address] Performed By: #### 2 4344-4 ####[facility] [id number] [place] [address] [place] Carboxyhemoglobin (BldV) [Mass fraction] 1.2 % Normal 0.0-2.0 [facility] Comment on above: Order Comment: Speci men Type: VENOUS BLOOD SPECIMENOrdering Facility: [facility] Address: [address] [place] [address] Result Comment: Carb oxyhemoglobin Reference Range for Smokers: 2.0-8.0% Performed By: #### 2 4344-4 ####[facility] LABCLIA [id number] [place] [address] [place] CO2 (BldV) [Partial pressure] 52 mm[Hg] Normal 42-55 [facility] Comment on above: Order Comment: Speci men Type: VENOUS BLOOD SPECIMENOrdering Facility: [facility] Address: [address] [place] [address] Performed By: #### 2 4344-4 ####[facility] LABCLIA [id number] [place] [address] [place] Glucose [Mass/Vol] 106 mg/dL High 60-105 [facility] Comment on above: Order Comment: Speci men Type: VENOUS BLOOD SPECIMENOrdering Facility: [facility] Address: [address] [place] [address] Performed By: #### 2 4344-4 ####[facility] LABCLIA [id number] [place] [address] [place] HCO3 (Bld) [Moles/Vol] 31 mmol/L High 24-28 [facility] Comment on above: Order Comment: Speci men Type: VENOUS BLOOD SPECIMENOrdering Facility: [facility] Address: [address] [place] [address] Performed By: #### 2 4344-4 ####[facility] LABCLIA [id number] [place] [id number] [place] Hematocrit (Bld) [Volume fraction] 25.2 % Low 39.0-51.0 [facility] Comment on above: Order Comment: Speci men Type: VENOUS BLOOD SPECIMENOrdering Facility: [facility] Address: [address] [place] [address] Performed By: #### 2 4344-4 ####[facility] LABCLIA [id number] [place] [id number] [place] Hemoglobin (Bld) [Mass/Vol] 8.1 g/dL Low 13.0-17.0 [facility] Comment on above: Order Comment: Speci men Type: VENOUS BLOOD SPECIMENOrdering Facility: [facility] Address: [address] [place] [address] Performed By: #### 2 4344-4 ####[facility] LABCLIA [id number] [place] [address] [place] Lactate [Moles/Vol] 0.8 mmol/L Normal 0.5-2.2 [facility] Comment on above: Order Comment: Speci men Type: VENOUS BLOOD SPECIMENOrdering Facility: [facility] Address: [address] [place] [address] Performed By: #### 2 4344-4 ####[facility] LABCLIA [id number] [place] [address] [place] LITERS 4 Liters/min Normal [facility] Comment on above: Order Comment: Speci men Type: VENOUS BLOOD SPECIMENOrdering Facility: [facility] Address: [address] [place] [address] Performed By: #### 2 4344-4 ####[facility] LABCLIA [id number] [place] [address] [place] Methemoglobin (Bld) [Mass fraction] 1.0 % Normal 0.0-1.5 [facility] Comment on above: Order Comment: Speci men Type: VENOUS BLOOD SPECIMENOrdering Facility: [facility] Address: [address] [place] [address] Performed By: #### 2 4344-4 ####[facility] LABCLIA [id number] [place] [address] [place] O2 THERAPY [place] = Nasal Cannula Normal [facility] Comment on above: Order Comment: Speci men Type: VENOUS BLOOD SPECIMENOrdering Facility: [facility] Address: [address] [place] [address] Performed By: #### 2 4344-4 ####[facility] LABCLIA [id number] [address] [place] [address] [place] Oxygen (BldV) [Partial pressure] 35 mm[Hg] Normal 35-45 [facility] Comment on above: Order Comment: Speci men Type: VENOUS BLOOD SPECIMENOrdering Facility: [facility] Address: [address] [place] [address] Performed By: #### 2 4344-4 ####[facility] LABCLIA [id number] [address] [place] [address] [place] Oxygen saturation in Venous blood 57 % Low 60-85 [facility] Comment on above: Order Comment: Speci men Type: VENOUS BLOOD SPECIMENOrdering Facility: [facility] Address: [address] [place] [address] Performed By: #### 2 4344-4 ####[facility] LABIA [id number] [place] [id number] [place] Oxyhemoglobin (BldV) [Mass fraction] 56 % Low 60-85 [facility] Comment on above: Order Comment: Speci men Type: VENOUS BLOOD SPECIMENOrdering Facility: [facility] Address: [address] [place] [address] Performed By: #### 2 4344-4 ####[facility] LABIA [id number] [address] [address] [place] pH (BldV) 7.39 [pH] Normal 7.32-7.42 [facility] Comment on above: Order Comment: Speci men Type: VENOUS BLOOD SPECIMENOrdering Facility: [facility] Address: [address] [place], [place] [address] Performed By: #### 2 4344-4 ####[facility] LABCLIA [id number] [address] [address] [place] Potassium [Moles/Vol] 4.4 mmol/L Normal 3.5-5.0 [facility] Comment on above: Order Comment: Speci men Type: VENOUS BLOOD SPECIMENOrdering Facility: [facility] Address: [address] [place] [address] Performed By: #### 2 4344-4 ####[facility] LABCLIA [id number] [place] [id number] [place] Sodium [Moles/Vol] 132 mmol/L Low 136-144 [facility] Comment on above: Order Comment: Speci men Type: VENOUS BLOOD SPECIMENOrdering Facility: [facility] Address: [address] [place] [address] Performed By: #### 2 4344-4 ####[facility] LABCLIA [id number] [place] [address] [place] Base excess Calc (BldV) [Moles/Vol] 6 mmol/L High 0-2 [facility] Comment on above: Order Comment: Speci men Type: VENOUS BLOOD SPECIMENOrdering Facility: [facility] Address: [address] [place] [address] Performed By: #### 2 4344-4 ####[facility] LABCLIA [id number] [place] [address] [place] Body temperature 98.78 [degF] Normal [facility] Comment on above: Order Comment: Speci men Type: VENOUS BLOOD SPECIMENOrdering Facility: [facility] Address: [address] [place] [address] Performed By: #### 2 4344-4 ####[facility] LABCLIA [id number] [place] [id number] [place] Calcium.ionized (Bld) [Mass/Vol] 1.14 mmol/L Normal 1.08-1.30 [facility] Comment on above: Order Comment: Speci men Type: VENOUS BLOOD SPECIMENOrdering Facility: [facility] Address: [address] [place] [address] Performed By: #### 2 4344-4 ####[facility] LABIA [id number] [place] [address] [place] Calcium.ionized adjusted to pH 7.4 (BldA) [Moles/Vol] 1.14 mmol/L Normal 1.08-1.30 [facility] Comment on above: Order Comment: Speci men Type: VENOUS BLOOD SPECIMENOrdering Facility: [facility] Address: [address] [place] [address] Performed By: #### 2 4344-4 ####[facility] [id number] [place] [address] [place] Carboxyhemoglobin (BldV) [Mass fraction] 1.3 % Normal 0.0-2.0 [facility] Comment on above: Order Comment: Speci men Type: VENOUS BLOOD SPECIMENOrdering Facility: [facility] Address: [address] [place] [address] Result Comment: Carb oxyhemoglobin Reference Range for Smokers: 2.0-8.0% Performed By: #### 2 4344-4 ####[facility] LABIA [id number] [place] [address] [place] CO2 (BldV) [Partial pressure] 51 mm[Hg] Normal 42-55 [facility] Comment on above: Order Comment: Speci men Type: VENOUS BLOOD SPECIMENOrdering Facility: [facility] Address: [address] [place] [address] Performed By: #### 2 4344-4 ####[facility] LABIA [id number] [place] [address] [place] CO2 adjusted to patient's actual temperature (BldV) [Partial pressure] 52 mmHg Normal 42-55 [facility] Comment on above: Order Comment: Speci men Type: VENOUS BLOOD SPECIMENOrdering Facility: [facility] Address: [address] [place] [address] Performed By: #### 2 4344-4 ####[facility] LABCLIA [id number] [address] [place] [address] [place] Glucose [Mass/Vol] 67 mg/dL Normal 60-105 [facility] Comment on above: Order Comment: Speci men Type: VENOUS BLOOD SPECIMENOrdering Facility: [facility] Address: [address] [place] [address] Performed By: #### 2 4344-4 ####[facility] LABCLIA [id number] [address] [place] [address] [place] HCO3 (Bld) [Moles/Vol] 31 mmol/L High 24-28 [facility] Comment on above: Order Comment: Speci men Type: VENOUS BLOOD SPECIMENOrdering Facility: [facility] Address: [address] [place] [address] Performed By: #### 2 4344-4 ####[facility] LABCLIA [id number] [place] [address] [place] Hematocrit (Bld) [Volume fraction] 26.5 % Low 39.0-51.0 [facility] Comment on above: Order Comment: Speci men Type: VENOUS BLOOD SPECIMENOrdering Facility: [facility] Address: [address] [place] [address] Performed By: #### 2 4344-4 ####[facility] LABCLIA [id number] [place] [id number] [place] Hemoglobin (Bld) [Mass/Vol] 8.5 g/dL Low 13.0-17.0 [facility] Comment on above: Order Comment: Speci men Type: VENOUS BLOOD SPECIMENOrdering Facility: [facility] Address: [address] [place] [address] Performed By: #### 2 4344-4 ####[facility] LABCLIA [id number] [place] [id number] [place] Lactate [Moles/Vol] 0.8 mmol/L Normal 0.5-2.2 [facility] Comment on above: Order Comment: Speci men Type: VENOUS BLOOD SPECIMENOrdering Facility: [facility] Address: [address] [place] [id number] Performed By: #### 2 4344-4 ####[facility] LABCLIA [id number] [address] [place] [address] [place] LITERS 4 Liters/min Normal [facility] Comment on above: Order Comment: Speci men Type: VENOUS BLOOD SPECIMENOrdering Facility: [facility] Address: [address] [place], [place] [address] Performed By: #### 2 4344-4 ####[facility] LABCLIA [id number] [address] [address] [place] Methemoglobin (Bld) [Mass fraction] 1.6 % High 0.0-1.5 [facility] Comment on above: Order Comment: Speci men Type: VENOUS BLOOD SPECIMENOrdering Facility: [facility] Address: [address] [place], [place] [address] Performed By: #### 2 4344-4 ####[facility] LABCLIA [id number] [address] [address] [place] O2 THERAPY [place] = Nasal Cannula Normal [facility] Comment on above: Order Comment: Speci men Type: VENOUS BLOOD SPECIMENOrdering Facility: [facility] Address: [address] [place] [address] Performed By: #### 2 4344-4 ####[facility] LABCLIA [id number] [address] [address] [place] Oxygen (BldV) [Partial pressure] 35 mm[Hg] Normal 35-45 [facility] Comment on above: Order Comment: Speci men Type: VENOUS BLOOD SPECIMENOrdering Facility: [facility] Address: [address] [place] [address] Performed By: #### 2 4344-4 ####[facility] LABCLIA [id number] [address] [place] [address] [place] Oxygen adjusted to patient's actual temperature (BldV) [Partial pressure] 35 mmHg Normal 35-45 [facility] Comment on above: Order Comment: Speci men Type: VENOUS BLOOD SPECIMENOrdering Facility: [facility] Address: [address] [place], [place] [address] Performed By: #### 2 4344-4 ####[facility] LABCLIA [id number] [address] [address] [place] Oxygen saturation in Venous blood 62 % Normal 60-85 [facility] Comment on above: Order Comment: Speci men Type: VENOUS BLOOD SPECIMENOrdering Facility: [facility] Address: [address] [place], [place] [address] Performed By: #### 2 4344-4 ####[facility] LABCLIA [id number] [address] [address] [place] Oxyhemoglobin (BldV) [Mass fraction] 60 % Normal 60-85 [facility] Comment on above: Order Comment: Speci men Type: VENOUS BLOOD SPECIMENOrdering Facility: [facility] Address: [address] [place], [place] [address] Performed By: #### 2 4344-4 ####[facility] LABCLIA [id number] [address] [address] [place] pH (BldV) 7.40 [pH] Normal 7.32-7.42 [facility] Comment on above: Order Comment: Speci men Type: VENOUS BLOOD SPECIMENOrdering Facility: [facility] Address: [address] [place] [address] Performed By: #### 2 4344-4 ####[facility] LABCLIA [id number] [address] [address] [place] pH adjusted to patient's actual temperature (BldV) 7.40 Normal 7.32-7.42 [facility] Comment on above: Order Comment: Speci men Type: VENOUS BLOOD SPECIMENOrdering Facility: [facility] Address: [address] [place] [id number] Performed By: #### 2 4344-4 ####[facility] LABCLIA [id number] [address] [address] [place] Potassium [Moles/Vol] 4.5 mmol/L Normal 3.5-5.0 [facility] Comment on above: Order Comment: Speci men Type: VENOUS BLOOD SPECIMENOrdering Facility: [facility] Address: [address] [place], [place] [address] Performed By: #### 2 4344-4 ####[facility] LABCLIA [id number] [place] [id number] [place] Sodium [Moles/Vol] 132 mmol/L Low 136-144 [facility] Comment on above: Order Comment: Speci men Type: VENOUS BLOOD SPECIMENOrdering Facility: [facility] Address: [address] [place], [place] [address] Performed By: #### 2 4344-4 ####[facility] LABCLIA [id number] [place] [address] [place] Base excess Calc (BldV) [Moles/Vol] 5 mmol/L High 0-2 [facility] Comment on above: Order Comment: Speci men Type: VENOUS BLOOD SPECIMENOrdering Facility: [facility] Address: [address] [place], [place] [address] Performed By: #### 2 4344-4 ####[facility] LABCLIA [id number] [place] [id number] [place] Body temperature 98.06 [degF] Normal [facility] Comment on above: Order Comment: Speci men Type: VENOUS BLOOD SPECIMENOrdering Facility: [facility] Address: [address] [place], [place] [address] Performed By: #### 2 4344-4 ####[facility] LABCLIA [id number] [place] [address] [place] Calcium.ionized (Bld) [Mass/Vol] 1.15 mmol/L Normal 1.08-1.30 [facility] Comment on above: Order Comment: Speci men Type: VENOUS BLOOD SPECIMENOrdering Facility: [facility] Address: [address] [place] [address] Performed By: #### 2 4344-4 ####[facility] LABIA [id number] [place] [address] [place] Calcium.ionized adjusted to pH 7.4 (BldA) [Moles/Vol] 1.13 mmol/L Normal 1.08-1.30 [facility] Comment on above: Order Comment: Speci men Type: VENOUS BLOOD SPECIMENOrdering Facility: [facility] Address: [address] [place] [address] Performed By: #### 2 4344-4 ####[facility] [id number] [place] [address] [place] Carboxyhemoglobin (BldV) [Mass fraction] 1.6 % Normal 0.0-2.0 [facility] Comment on above: Order Comment: Speci men Type: VENOUS BLOOD SPECIMENOrdering Facility: [facility] Address: [address] [place] [address] Result Comment: Carb oxyhemoglobin Reference Range for Smokers: 2.0-8.0% Performed By: #### 2 4344-4 ####[facility] LABIA [id number] [place] [address] [place] CO2 (BldV) [Partial pressure] 54 mm[Hg] Normal 42-55 [facility] Comment on above: Order Comment: Speci men Type: VENOUS BLOOD SPECIMENOrdering Facility: [facility] Address: [address] [place] [address] Performed By: #### 2 4344-4 ####[facility] LABCLIA [id number] [facility] [address] [place] [address] [place] CO2 adjusted to patient's actual temperature (BldV) [Partial pressure] 53 mmHg Normal 42-55 [facility] Comment on above: Order Comment: Speci men Type: VENOUS BLOOD SPECIMENOrdering Facility: [facility] Address: [address] [place] [address] Performed By: #### 2 4344-4 ####[facility] LABCLIA [id number] [place] [address] [place] Glucose [Mass/Vol] 185 mg/dL High 60-105 [facility] Comment on above: Order Comment: Speci men Type: VENOUS BLOOD SPECIMENOrdering Facility: [facility] Address: [address] [place] [address] Performed By: #### 2 4344-4 ####[facility] LABCLIA [id number] [place] [address] [place] HCO3 (Bld) [Moles/Vol] 30 mmol/L High 24-28 [facility] Comment on above: Order Comment: Speci men Type: VENOUS BLOOD SPECIMENOrdering Facility: [facility] Address: [address] [place] [address] Performed By: #### 2 4344-4 ####[facility] LABCLIA [id number] [place] [address] [place] Hematocrit (Bld) [Volume fraction] 27.8 % Low 39.0-51.0 [facility] Comment on above: Order Comment: Speci men Type: VENOUS BLOOD SPECIMENOrdering Facility: [facility] Address: [address] [place] [address] Performed By: #### 2 4344-4 ####[facility] LABCLIA [id number] [facility] [place] [id number] [place] Hemoglobin (Bld) [Mass/Vol] 9.0 g/dL Low 13.0-17.0 [facility] Comment on above: Order Comment: Speci men Type: VENOUS BLOOD SPECIMENOrdering Facility: [facility] Address: [address] [place] [id number] Performed By: #### 2 4344-4 ####[facility] LABCLIA [id number] [address] [address] [place] Lactate [Moles/Vol] 1.7 mmol/L Normal 0.5-2.2 [facility] Comment on above: Order Comment: Speci men Type: VENOUS BLOOD SPECIMENOrdering Facility: [facility] Address: [address] [place] [address] Performed By: #### 2 4344-4 ####[facility] LABCLIA [id number] [place] [id number] [place] LITERS 4 Liters/min Normal [facility] Comment on above: Order Comment: Speci men Type: VENOUS BLOOD SPECIMENOrdering Facility: [facility] Address: [address] [place] [address] Performed By: #### 2 4344-4 ####[facility] LABCLIA [id number] [place] [address] [place] Methemoglobin (Bld) [Mass fraction] 1.8 % High 0.0-1.5 [facility] Comment on above: Order Comment: Speci men Type: VENOUS BLOOD SPECIMENOrdering Facility: [facility] Address: [address] [place] [address] Performed By: #### 2 4344-4 ####[facility] LABCLIA [id number] [place] [id number] [place] O2 THERAPY NC = Nasal Cannula Normal [facility] Comment on above: Order Comment: Speci men Type: VENOUS BLOOD SPECIMENOrdering Facility: [facility] Address: [address] [place], [place] [address] Performed By: #### 2 4344-4 ####[facility] LABCLIA [id number] [address] [place] [address] [place] Oxygen (BldV) [Partial pressure] 39 mm[Hg] Normal 35-45 [facility] Comment on above: Order Comment: Speci men Type: VENOUS BLOOD SPECIMENOrdering Facility: [facility] Address: [address] [place], [place] [address] Performed By: #### 2 4344-4 ####[facility] LABCLIA [id number] [address] [place] [address] [place] Oxygen adjusted to patient's actual temperature (BldV) [Partial pressure] 38 mmHg Normal 35-45 [facility] Comment on above: Order Comment: Speci men Type: VENOUS BLOOD SPECIMENOrdering Facility: [facility] Address: [address] [place], [place] [address] Performed By: #### 2 4344-4 ####[facility] LABCLIA [id number] [place] [id number] [place] Oxygen saturation in Venous blood 64 % Normal 60-85 [facility] Comment on above: Order Comment: Speci men Type: VENOUS BLOOD SPECIMENOrdering Facility: [facility] Address: [address] [place], [place] [address] Performed By: #### 2 4344-4 ####[facility] LABCLIA [id number] [address] [address] [place] Oxyhemoglobin (BldV) [Mass fraction] 61 % Normal 60-85 [facility] Comment on above: Order Comment: Speci men Type: VENOUS BLOOD SPECIMENOrdering Facility: [facility] Address: [address] [place] [address] Performed By: #### 2 4344-4 ####[facility] LABCLIA [id number] [address] [address] [place] pH (BldV) 7.37 [pH] Normal 7.32-7.42 [facility] Comment on above: Order Comment: Speci men Type: VENOUS BLOOD SPECIMENOrdering Facility: [facility] Address: [address] [place], [place] [address] Performed By: #### 2 4344-4 ####[facility] LABCLIA [id number] [place] [address] [place] pH adjusted to patient's actual temperature (BldV) 7.37 Normal 7.32-7.42 [facility] Comment on above: Order Comment: Speci men Type: VENOUS BLOOD SPECIMENOrdering Facility: [facility] Address: [address] [place], [place] [address] Performed By: #### 2 4344-4 ####[facility] LABCLIA [id number] [place] [address] [place] Potassium [Moles/Vol] 4.4 mmol/L Normal 3.5-5.0 [facility] Comment on above: Order Comment: Speci men Type: VENOUS BLOOD SPECIMENOrdering Facility: [facility] Address: [address] [place] [address] Performed By: #### 2 4344-4 ####[facility] LABCLIA [id number] [place] [address] [place] Sodium [Moles/Vol] 133 mmol/L Low 136-144 [facility] Comment on above: Order Comment: Speci men Type: VENOUS BLOOD SPECIMENOrdering Facility: [facility] Address: [address] [place], [place] [address] Performed By: #### 2 4344-4 ####[facility] LABCLIA [id number] [address] [address] [place] Base excess Calc (BldV) [Moles/Vol] 4 mmol/L High 0-2 [facility] Comment on above: Order Comment: Speci men Type: VENOUS BLOOD SPECIMENOrdering Facility: [facility] Address: [address] [place], [place] [address] Performed By: #### 2 4344-4 ####[facility] LABCLIA [id number] [place] [address] [place] Calcium.ionized (Bld) [Mass/Vol] 1.11 mmol/L Normal 1.08-1.30 [facility] Comment on above: Order Comment: Speci men Type: VENOUS BLOOD SPECIMENOrdering Facility: [facility] Address: [address] [place] [address] Performed By: #### 2 4344-4 ####[facility] LABIA [id number] [place] [address] [place] Calcium.ionized adjusted to pH 7.4 (BldA) [Moles/Vol] 1.10 mmol/L Normal 1.08-1.30 [facility] Comment on above: Order Comment: Speci men Type: VENOUS BLOOD SPECIMENOrdering Facility: [facility] Address: [address] [place] [address] Performed By: #### 2 4344-4 ####[facility] LABIA [id number] [place] [address] [place] Carboxyhemoglobin (BldV) [Mass fraction] 1.4 % Normal 0.0-2.0 [facility] Comment on above: Order Comment: Speci men Type: VENOUS BLOOD SPECIMENOrdering Facility: [facility] Address: [address] [place] [address] Result Comment: Carb oxyhemoglobin Reference Range for Smokers: 2.0-8.0% Performed By: #### 2 4344-4 ####[facility] LABIA [id number] [place] [address] [place] CO2 (BldV) [Partial pressure] 49 mm[Hg] Normal 42-55 [facility] Comment on above: Order Comment: Speci men Type: VENOUS BLOOD SPECIMENOrdering Facility: [facility] Address: [address] [place] [address] Performed By: #### 2 4344-4 ####[facility] LABIA [id number] [place] [id number] [place] CO2 adjusted to patient's actual temperature (BldV) [Partial pressure] 48 mmHg Normal 42-55 [facility] Comment on above: Order Comment: Speci men Type: VENOUS BLOOD SPECIMENOrdering Facility: [facility] Address: [address] [place] [address] Performed By: #### 2 4344-4 ####[facility] LABCLIA [id number] [place] [address] [place] Glucose [Mass/Vol] 142 mg/dL High 60-105 [facility] Comment on above: Order Comment: Speci men Type: VENOUS BLOOD SPECIMENOrdering Facility: [facility] Address: [address] [place] [address] Performed By: #### 2 4344-4 ####[facility] LABCLIA [id number] [place] [address] [place] HCO3 (Bld) [Moles/Vol] 29 mmol/L High 24-28 [facility] Comment on above: Order Comment: Speci men Type: VENOUS BLOOD SPECIMENOrdering Facility: [facility] Address: [address] [place] [address] Performed By: #### 2 4344-4 ####[facility] LABCLIA [id number] [place] [id number] [place] Hematocrit (Bld) [Volume fraction] 26.6 % Low 39.0-51.0 [facility] Comment on above: Order Comment: Speci men Type: VENOUS BLOOD SPECIMENOrdering Facility: [facility] Address: [address] [place] [address] Performed By: #### 2 4344-4 ####[facility] LABCLIA [id number] [address], [facility]95 [place] Hemoglobin (Bld) [Mass/Vol] 8.6 g/dL Low 13.0-17.0 [facility] Comment on above: Order Comment: Speci men Type: VENOUS BLOOD SPECIMENOrdering Facility: [facility] Address: [address] [place], [place] [address] Performed By: #### 2 4344-4 ####[facility] LABCLIA [id number] [address] [address] [place] Lactate [Moles/Vol] 0.6 mmol/L Normal 0.5-2.2 [facility] Comment on above: Order Comment: Speci men Type: VENOUS BLOOD SPECIMENOrdering Facility: [facility] Address: [address] [place], [place] [address] Performed By: #### 2 4344-4 ####[facility] LABCLIA [id number] [address] [address] [place] Methemoglobin (Bld) [Mass fraction] 1.4 % Normal 0.0-1.5 [facility] Comment on above: Order Comment: Speci men Type: VENOUS BLOOD SPECIMENOrdering Facility: [facility] Address: [address] [place], [place] [address] Performed By: #### 2 4344-4 ####[facility] LABCLIA [id number] [address] [address] [place] Oxygen (BldV) [Partial pressure] 39 mm[Hg] Normal 35-45 [facility] Comment on above: Order Comment: Speci men Type: VENOUS BLOOD SPECIMENOrdering Facility: [facility] Address: [address] [place], [place] [address] Performed By: #### 2 4344-4 ####[facility] LABCLIA [id number] [address] [address] [place] Oxygen adjusted to patient's actual temperature (BldV) [Partial pressure] 37 mmHg Normal 35-45 [facility] Comment on above: Order Comment: Speci men Type: VENOUS BLOOD SPECIMENOrdering Facility: [facility] Address: [address] [place], [place] [address] Performed By: #### 2 4344-4 ####[facility] LABCLIA [id number] [address] [place] [address] [place] Oxygen saturation in Venous blood 64 % Normal 60-85 [facility] Comment on above: Order Comment: Speci men Type: VENOUS BLOOD SPECIMENOrdering Facility: [facility] Address: [address] [place], [place] [address] Performed By: #### 2 4344-4 ####[facility] LABCLIA [id number] [address] [place] [address] [place] Oxyhemoglobin (BldV) [Mass fraction] 62 % Normal 60-85 [facility] Comment on above: Order Comment: Speci men Type: VENOUS BLOOD SPECIMENOrdering Facility: [facility] Address: [address] [place] [address] Performed By: #### 2 4344-4 ####[facility] LABCLIA [id number] [place] [id number] [place] pH (BldV) 7.39 [pH] Normal 7.32-7.42 [facility] Comment on above: Order Comment: Speci men Type: VENOUS BLOOD SPECIMENOrdering Facility: [facility] Address: [address] [place] [address] Performed By: #### 2 4344-4 ####[facility] LABCLIA [id number] [address] [address] [place] pH adjusted to patient's actual temperature (BldV) 7.40 Normal 7.32-7.42 [facility] Comment on above: Order Comment: Speci men Type: VENOUS BLOOD SPECIMENOrdering Facility: [facility] Address: [address] [place], [place] [address] Performed By: #### 2 4344-4 ####[facility] LABCLIA [id number] [address] [address] [place] Potassium [Moles/Vol] 4.0 mmol/L Normal 3.5-5.0 [facility] Comment on above: Order Comment: Speci men Type: VENOUS BLOOD SPECIMENOrdering Facility: [facility] Address: [address] [place] [address] Performed By: #### 2 4344-4 ####[facility] LABCLIA [id number] [place] [id number] [place] Sodium [Moles/Vol] 134 mmol/L Low 136-144 [facility] Comment on above: Order Comment: Speci men Type: VENOUS BLOOD SPECIMENOrdering Facility: [facility] Address: [address] [place] [address] Performed By: #### 2 4344-4 ####[facility] LABCLIA [id number] [place] [address] [place] Base excess Calc (BldV) [Moles/Vol] 7 mmol/L High 0-2 [facility] Comment on above: Order Comment: Speci men Type: VENOUS BLOOD SPECIMENOrdering Facility: [facility] Address: [address] [place] [address] Performed By: #### 2 4344-4 ####[facility] LABCLIA [id number] [place] [address] [place] Body temperature 98.6 [degF] Normal [facility] Comment on above: Order Comment: Speci men Type: VENOUS BLOOD SPECIMENOrdering Facility: [facility] Address: [address] [place] [address] Performed By: #### 2 4344-4 ####[facility] LABCLIA [id number] [place] [id number] [place] Calcium.ionized (Bld) [Mass/Vol] 1.16 mmol/L Normal 1.08-1.30 [facility] Comment on above: Order Comment: Speci men Type: VENOUS BLOOD SPECIMENOrdering Facility: [facility] Address: [address] [place] [address] Performed By: #### 2 4344-4 ####[facility] LABCLIA [id number] [place] [address] [place] Calcium.ionized adjusted to pH 7.4 (BldA) [Moles/Vol] 1.16 mmol/L Normal 1.08-1.30 [facility] Comment on above: Order Comment: Speci men Type: VENOUS BLOOD SPECIMENOrdering Facility: [facility] Address: [address] [place] [address] Performed By: #### 2 4344-4 ####[facility] LABIA [id number] [place] [address] [place] Carboxyhemoglobin (BldV) [Mass fraction] 1.4 % Normal 0.0-2.0 [facility] Comment on above: Order Comment: Speci men Type: VENOUS BLOOD SPECIMENOrdering Facility: [facility] Address: [address] [place] [address] Result Comment: Carb oxyhemoglobin Reference Range for Smokers: 2.0-8.0% Performed By: #### 2 4344-4 ####[facility] LABIA [id number] [place] [address] [place] CO2 (BldV) [Partial pressure] 52 mm[Hg] Normal 42-55 [facility] Comment on above: Order Comment: Speci men Type: VENOUS BLOOD SPECIMENOrdering Facility: [facility] Address: [address] [place] [address] Performed By: #### 2 4344-4 ####[facility] LABIA [id number] [place] [address] [place] Glucose [Mass/Vol] 159 mg/dL High 60-105 [facility] Comment on above: Order Comment: Speci men Type: VENOUS BLOOD SPECIMENOrdering Facility: [facility] Address: [address] [place] [address] Performed By: #### 2 4344-4 ####[facility] LABCLIA [id number] [place] [address] [place] HCO3 (Bld) [Moles/Vol] 32 mmol/L High 24-28 [facility] Comment on above: Order Comment: Speci men Type: VENOUS BLOOD SPECIMENOrdering Facility: [facility] Address: [address] [place] [address] Performed By: #### 2 4344-4 ####[facility] LABCLIA [id number] [place] [address] [place] Hematocrit (Bld) [Volume fraction] 25.9 % Low 39.0-51.0 [facility] Comment on above: Order Comment: Speci men Type: VENOUS BLOOD SPECIMENOrdering Facility: [facility] Address: [address] [place] [address] Performed By: #### 2 4344-4 ####[facility] LABIA [id number] [place] [address] [place] Hemoglobin (Bld) [Mass/Vol] 8.3 g/dL Low 13.0-17.0 [facility] Comment on above: Order Comment: Speci men Type: VENOUS BLOOD SPECIMENOrdering Facility: [facility] Address: [address] [place] [address] Performed By: #### 2 4344-4 ####[facility] LABIA [id number] [place] [address] [place] Lactate [Moles/Vol] 0.6 mmol/L Normal 0.5-2.2 [facility] Comment on above: Order Comment: Speci men Type: VENOUS BLOOD SPECIMENOrdering Facility: [facility] Address: [address] [place] [address] Performed By: #### 2 4344-4 ####[facility] LABIA [id number] [place] [address] [place] LITERS 4 Liters/min Normal [facility] Comment on above: Order Comment: Speci men Type: VENOUS BLOOD SPECIMENOrdering Facility: [facility] Address: [address] [place] [address] Performed By: #### 2 4344-4 ####[facility] LABCLIA [id number] [address] [place] [address] [place] Methemoglobin (Bld) [Mass fraction] 2.2 % High 0.0-1.5 [facility] Comment on above: Order Comment: Speci men Type: VENOUS BLOOD SPECIMENOrdering Facility: [facility] Address: [address] [place], [place] [address] Performed By: #### 2 4344-4 ####[facility] LABCLIA [id number] [address] [place] [address] [place] O2 THERAPY NC = Nasal Cannula Normal [facility] Comment on above: Order Comment: Speci men Type: VENOUS BLOOD SPECIMENOrdering Facility: [facility] Address: [address] [place], [place] [address] Performed By: #### 2 4344-4 ####[facility] LABCLIA [id number] [address] [address] [place] Oxygen (BldV) [Partial pressure] 37 mm[Hg] Normal 35-45 [facility] Comment on above: Order Comment: Speci men Type: VENOUS BLOOD SPECIMENOrdering Facility: [facility] Address: [address] [place], [place] [address] Performed By: #### 2 4344-4 ####[facility] LABCLIA [id number] [address] [address] [place] Oxygen saturation in Venous blood 67 % Normal 60-85 [facility] Comment on above: Order Comment: Speci men Type: VENOUS BLOOD SPECIMENOrdering Facility: [facility] Address: [address] [place] [address] Performed By: #### 2 4344-4 ####[facility] LABCLIA [id number] [address] [address] [place] Oxyhemoglobin (BldV) [Mass fraction] 65 % Normal 60-85 [facility] Comment on above: Order Comment: Speci men Type: VENOUS BLOOD SPECIMENOrdering Facility: [facility] Address: [address] [place] [address] Performed By: #### 2 4344-4 ####[facility] LABIA [id number] [place] [address] [place] pH (BldV) 7.40 [pH] Normal 7.32-7.42 [facility] Comment on above: Order Comment: Speci men Type: VENOUS BLOOD SPECIMENOrdering Facility: [facility] Address: [address] [place] [address] Performed By: #### 2 4344-4 ####[facility] LABIA [id number] [place] [address] [place] Potassium [Moles/Vol] 4.4 mmol/L Normal 3.5-5.0 [facility] Comment on above: Order Comment: Speci men Type: VENOUS BLOOD SPECIMENOrdering Facility: [facility] Address: [address] [place] [address] Performed By: #### 2 4344-4 ####[facility] LABIA [id number] [place] [id number] [place] Sodium [Moles/Vol] 133 mmol/L Low 136-144 [facility] Comment on above: Order Comment: Speci men Type: VENOUS BLOOD SPECIMENOrdering Facility: [facility] Address: [address] [place] [address] Performed By: #### 2 4344-4 ####[facility] LABIA [id number] [place] [id number] [place] Magnesium SerPl-ncon 10-22 Magnesium [Mass/Vol] 2.0 mg/dL Normal 1.7-2.3 [facility] Comment on above: Order Comment: Gini nowak Type: BLOOD SPECIMENOrdering Facility: [facility] Address: [address] [place] [address] Performed By: #### 2 4323-8, 41068-3, 2777-1 ####[facility] LABCLIA [id number] [place] [address] [place] PT panel Coag (PPP)on 2024 INR Coag (PPP) [Relative time] 1.3 {INR} Normal 0.9-1.3 [facility] Comment on above: Order Comment: Gini eliu Type: BLOOD SPECIMENOrdering Facility: [facility] Address: [address] [place] [address] Result Comment: Nettie min K Antagonist (VKA) Therapeutic Range: INR 2 to 3 (Target INR of 2.5)Note: For patients treated with VKA drugs, such as warfarin, the [place] [employer] 2012 Guideline recommends [...] al. Chest 2012, 141:7S-47SNishimsoila RA, et al. [facility] 2017, 70: 252-289 Performed By: #### 3 4528-0 ####[facility] [id number] [place] [id number] [place] PT Coag (PPP) [Time] 14.0 s High 9.7-13.0 [facility] Comment on above: Order Comment: Gini eliu Type: BLOOD SPECIMENOrdering Facility: [facility] Address: [address] [place] [address] Performed By: #### 3 4528-0 ####[facility] LABCLIA [id number] [place] [address] [place] Phosphate SerPl-mCncon 10-22 Phosphate [Mass/Vol] 2.9 mg/dL Normal 2.7-4.8 [facility] Comment on above: Order Comment: Speci men Type: BLOOD SPECIMENOrdering Facility: [facility] Address: [address] [place] [address] Performed By: #### 2 4323-8, 76320-5, 2777-1 ####[facility] LABCLIA [id number] [address] TYPE + SCREENon 10-22-2024 ABO O Normal [facility] Comment on above: Order Comment: Speci men Type: BLOOD SPECIMENOrdering Facility: [facility] Address: [address] [place] [address] Performed By: #### T SCR ####[facility] BLOOD BANKCLIA [id number] [place] [address] [place] Rh Nom (Bld) Negative Normal [facility] Comment on above: Order Comment: Speci men Type: BLOOD SPECIMENOrdering Facility: [facility] Address: [address] [place] [address] Performed By: #### T SCR ####[facility] BLOOD BANKCLIA [id number] [place] [address] [place] TYPE AND SCREEN EXPIRATION 10/25/2024 23:59 Normal [facility] Comment on above: Order Comment: Speci men Type: BLOOD SPECIMENOrdering Facility: [facility] Address: [address] [place] [address] Performed By: #### T SCR ####[facility] BLOOD BANKCLIA [id number] [place] [address] [place] XR CHEST 1V FRONTAL PORTon 0 10-22-2024 XR CHEST 1V FRONTAL PORT Normal [facility] ARTERIAL BLOOD GASESon 10-21 Base excess Calc (Bld) [Moles/Vol] 7 mmol/L High 0-2 [facility] Comment on above: Order Comment: Speci men Type: ARTERIAL BLOOD SPECIMENOrdering Facility: [facility] Address: [address] [place] [address] Performed By: #### A LLBG ####[facility] LABCLIA [id number] [place] [address] [place] Calcium.ionized (Bld) [Mass/Vol] 1.14 mmol/L Normal 1.08-1.30 [facility] Comment on above: Order Comment: Speci men Type: ARTERIAL BLOOD SPECIMENOrdering Facility: [facility] Address: [address] [place] [address] Performed By: #### A LLBG ####[facility] LABCLIA [id number] [place] [address] [place] Calcium.ionized adjusted to pH 7.4 (BldA) [Moles/Vol] 1.17 mmol/L Normal 1.08-1.30 [facility] Comment on above: Order Comment: Speci men Type: ARTERIAL BLOOD SPECIMENOrdering Facility: [facility] Address: [address] [place] [address] Performed By: #### A LLBG ####[facility] LABCLIA [id number] [place] [address] [place] Carboxyhemoglobin (BldA) [Mass fraction] 1.6 % Normal 0.0-2.0 [facility] Comment on above: Order Comment: Speci men Type: ARTERIAL BLOOD SPECIMENOrdering Facility: [facility] Address: [address] [place] [address] Result Comment: Carb oxyhemoglobin Reference Range for Smokers: 2.0-8.0% Performed By: #### A LLBG ####[facility] LABCLIA [id number] [address] [place] [address] [place] CO2 (Bld) [Partial pressure] 45 mm Hg Normal 36-46 [facility] Comment on above: Order Comment: Speci men Type: ARTERIAL BLOOD SPECIMENOrdering Facility: [facility] Address: [address] [place] [address] Performed By: #### A LLBG ####[facility] LABCLIA [id number] [address], [facility]95 [place] CO2 adjusted to patient's actual temperature (Bld) [Partial pressure] 44 mmHg Normal 36-46 [facility] Comment on above: Order Comment: Speci men Type: ARTERIAL BLOOD SPECIMENOrdering Facility: [facility] Address: [address] [place] [address] Performed By: #### A LLBG ####[facility] LABCLIA [id number] [place] [address] [place] Glucose [Mass/Vol] 103 mg/dL Normal 60-105 [facility] Comment on above: Order Comment: Speci men Type: ARTERIAL BLOOD SPECIMENOrdering Facility: [facility] Address: [address] [place] [address] Performed By: #### A LLBG ####[facility] LABCLIA [id number] [place] [id number] [place] Hematocrit (Bld) [Volume fraction] 27.9 % Low 39.0-51.0 [facility] Comment on above: Order Comment: Speci men Type: ARTERIAL BLOOD SPECIMENOrdering Facility: [facility] Address: [address] [place], [place] [address] Performed By: #### A LLBG ####[facility] LABCLIA [id number] [address] [address] [place] Hemoglobin (Bld) [Mass/Vol] 9.0 g/dL Low 13.0-17.0 [facility] Comment on above: Order Comment: Speci men Type: ARTERIAL BLOOD SPECIMENOrdering Facility: [facility] Address: [address] [place], [place] [address] Performed By: #### A LLBG ####[facility] LABCLIA [id number] [place] [id number] [place] Lactate [Moles/Vol] 1.4 mmol/L Normal 0.5-2.2 [facility] Comment on above: Order Comment: Speci men Type: ARTERIAL BLOOD SPECIMENOrdering Facility: [facility] Address: [address] [place] [address] Performed By: #### A LLBG ####[facility] LABCLIA [id number] [place] [address] [place] Methemoglobin (Bld) [Mass fraction] 1.3 % Normal 0.0-1.5 [facility] Comment on above: Order Comment: Speci men Type: ARTERIAL BLOOD SPECIMENOrdering Facility: [facility] Address: [address] [place] [address] Performed By: #### A LLBG ####[facility] LABCLIA [id number] [place] [id number] [place] Oxygen (Bld) [Partial pressure] 69 mm Hg Low 85-95 [facility] Comment on above: Order Comment: Speci men Type: ARTERIAL BLOOD SPECIMENOrdering Facility: [facility] Address: [address] [place] [address] Performed By: #### A LLBG ####[facility] LABCLIA [id number] [place] [id number] [place] Oxygen adjusted to patient's actual temperature (Bld) [Partial pressure] 66 mmHg Low 85-95 [facility] Comment on above: Order Comment: Speci men Type: ARTERIAL BLOOD SPECIMENOrdering Facility: [facility] Address: [address] [place], [place] [address] Performed By: #### A LLBG ####[facility] LABCLIA [id number] [place] [id number] [place] Oxyhemoglobin (BldA) [Mass fraction] 92 % Low 95-98 [facility] Comment on above: Order Comment: Speci men Type: ARTERIAL BLOOD SPECIMENOrdering Facility: [facility] Address: [address] [place] [address] Performed By: #### A LLBG ####[facility] LABCLIA [id number] [place] [address] [place] pH (Bld) 7.46 [pH] High 7.35-7.45 [facility] Comment on above: Order Comment: Speci men Type: ARTERIAL BLOOD SPECIMENOrdering Facility: [facility] Address: [address] [place] [address] Performed By: #### A LLBG ####[facility] LABCLIA [id number] [place] [address] [place] pH adjusted to patient's actual temperature (Bld) 7.47 High 7.35-7.45 [facility] Comment on above: Order Comment: Speci men Type: ARTERIAL BLOOD SPECIMENOrdering Facility: [facility] Address: [address] [place] [address] Performed By: #### A LLBG ####[facility] LABCLIA [id number] [place] [address] [place] Potassium [Moles/Vol] 4.6 mmol/L Normal 3.5-5.0 [facility] Comment on above: Order Comment: Speci men Type: ARTERIAL BLOOD SPECIMENOrdering Facility: [facility] Address: [address] [place] [address] Performed By: #### A LLBG ####[facility] LABCLIA [id number] [place] [id number] [place] Sodium [Moles/Vol] 132 mmol/L Low 136-144 [facility] Comment on above: Order Comment: Speci men Type: ARTERIAL BLOOD SPECIMENOrdering Facility: [facility] Address: [address] [place] [address] Performed By: #### A LLBG ####[facility] [id number] [place] [address] [place] Base excess Calc (Bld) [Moles/Vol] 6 mmol/L High 0-2 [facility] Comment on above: Order Comment: Speci men Type: ARTERIAL BLOOD SPECIMENOrdering Facility: [facility] Address: [address] [place] [address] Performed By: #### A LLBG ####[facility] [id number] [place] [address] [place] Calcium.ionized (Bld) [Mass/Vol] 1.14 mmol/L Normal 1.08-1.30 [facility] Comment on above: Order Comment: Speci men Type: ARTERIAL BLOOD SPECIMENOrdering Facility: [facility] Address: [address] [place] [address] Performed By: #### A LLBG ####[facility] [id number] [place] [address] [place] Calcium.ionized adjusted to pH 7.4 (BldA) [Moles/Vol] 1.17 mmol/L Normal 1.08-1.30 [facility] Comment on above: Order Comment: Speci men Type: ARTERIAL BLOOD SPECIMENOrdering Facility: [facility] Address: [address] [place] [address] Performed By: #### A LLBG ####[facility] [id number] [place] [address] [place] Carboxyhemoglobin (BldA) [Mass fraction] 1.0 % Normal 0.0-2.0 [facility] Comment on above: Order Comment: Speci men Type: ARTERIAL BLOOD SPECIMENOrdering Facility: [facility] Address: [address] [place] [address] Result Comment: Carb oxyhemoglobin Reference Range for Smokers: 2.0-8.0% Performed By: #### A LLBG ####[facility] LABCLIA [id number] [place] [address] [place] CO2 (Bld) [Partial pressure] 43 mm Hg Normal 36-46 [facility] Comment on above: Order Comment: Speci men Type: ARTERIAL BLOOD SPECIMENOrdering Facility: [facility] COMPANY Address: [address] [place] [address] Performed By: #### A LLBG ####[facility] LABCLIA [id number] [address] [place] CO2 adjusted to patient's actual temperature (Bld) [Partial pressure] 42 mmHg Normal 36-46 [facility] Comment on above: Order Comment: Speci men Type: ARTERIAL BLOOD SPECIMENOrdering Facility: [facility] Address: [address] [place] [address] Performed By: #### A LLBG ####[facility] LABCLIA [id number] [place] [address] [place] Glucose [Mass/Vol] 168 mg/dL High 60-105 [facility] Comment on above: Order Comment: Speci men Type: ARTERIAL BLOOD SPECIMENOrdering Facility: [facility] Address: [address] [place] [address] Performed By: #### A LLBG ####[facility] LABCLIA [id number] [place] [id number] [place] HCO3 (Bld) [Moles/Vol] 30 mmol/L High 22-26 [facility] Comment on above: Order Comment: Speci men Type: ARTERIAL BLOOD SPECIMENOrdering Facility: [facility] Address: [address] [place] [address] Performed By: #### A LLBG ####[facility] LABCLIA [id number] [place] [address] [place] Hematocrit (Bld) [Volume fraction] 30.7 % Low 39.0-51.0 [facility] Comment on above: Order Comment: Speci men Type: ARTERIAL BLOOD SPECIMENOrdering Facility: [facility] Address: [address] [place] [address] Performed By: #### A LLBG ####[facility] LABIA [id number] [place] [address] [place] Hemoglobin (Bld) [Mass/Vol] 9.9 g/dL Low 13.0-17.0 [facility] Comment on above: Order Comment: Speci men Type: ARTERIAL BLOOD SPECIMENOrdering Facility: [facility] Address: [address] [place] [address] Performed By: #### A LLBG ####[facility] LABIA [id number] [place] [address] [place] Lactate [Moles/Vol] 0.8 mmol/L Normal 0.5-2.2 [facility] Comment on above: Order Comment: Speci men Type: ARTERIAL BLOOD SPECIMENOrdering Facility: [facility] Address: [address] [place] [address] Performed By: #### A LLBG ####[facility] LABIA [id number] [place] [address] [place] Methemoglobin (Bld) [Mass fraction] 1.9 % High 0.0-1.5 [facility] Comment on above: Order Comment: Speci men Type: ARTERIAL BLOOD SPECIMENOrdering Facility: [facility] Address: [address] [place] [address] Performed By: #### A LLBG ####[facility] LABCLIA [id number] [place] [id number] [place] Oxygen (Bld) [Partial pressure] 99 mm Hg High 85-95 [facility] Comment on above: Order Comment: Speci men Type: ARTERIAL BLOOD SPECIMENOrdering Facility: [facility] Address: [address] [place] [address] Performed By: #### A LLBG ####[facility] LABCLIA [id number] [address] [address] [place] Oxygen adjusted to patient's actual temperature (Bld) [Partial pressure] 96 mmHg High 85-95 [facility] Comment on above: Order Comment: Speci men Type: ARTERIAL BLOOD SPECIMENOrdering Facility: [facility] Address: [address] [place] [address] Performed By: #### A LLBG ####[facility] LABCLIA [id number] [address] [address] [place] Oxyhemoglobin (BldA) [Mass fraction] 95 % Normal 95-98 [facility] Comment on above: Order Comment: Speci men Type: ARTERIAL BLOOD SPECIMENOrdering Facility: [facility] Address: [address] [place] [address] Performed By: #### A LLBG ####[facility] LABCLIA [id number] [address] [address] [place] pH (Bld) 7.46 [pH] High 7.35-7.45 [facility] Comment on above: Order Comment: Speci men Type: ARTERIAL BLOOD SPECIMENOrdering Facility: [facility] Address: [address] [place] [address] Performed By: #### A LLBG ####[facility] LABCLIA [id number] [address] [place] [address] [place] pH adjusted to patient's actual temperature (Bld) 7.47 High 7.35-7.45 [facility] Comment on above: Order Comment: Speci men Type: ARTERIAL BLOOD SPECIMENOrdering Facility: [facility] Address: [address] [place] [address] Performed By: #### A LLBG ####[facility] LABCLIA [id number] [address] [place] [address] [place] Potassium [Moles/Vol] 4.5 mmol/L Normal 3.5-5.0 [facility] Comment on above: Order Comment: Speci men Type: ARTERIAL BLOOD SPECIMENOrdering Facility: [facility] Address: [address] [place] [address] Performed By: #### A LLBG ####[facility] LABCLIA [id number] [place] [address] [place] Sodium [Moles/Vol] 131 mmol/L Low 136-144 [facility] Comment on above: Order Comment: Speci men Type: ARTERIAL BLOOD SPECIMENOrdering Facility: [facility] Address: [address] [place] [address] Performed By: #### A LLBG ####[facility] LABCLIA [id number] [place] [address] [place] Base excess Calc (Bld) [Moles/Vol] 5 mmol/L High 0-2 [facility] Comment on above: Order Comment: Speci men Type: ARTERIAL BLOOD SPECIMENOrdering Facility: [facility] Address: [address] [place] [address] Performed By: #### A LLBG ####[facility] LABCLIA [id number] [place] [address] [place] Body temperature 98.6 [degF] Normal [facility] Comment on above: Order Comment: Speci men Type: ARTERIAL BLOOD SPECIMENOrdering Facility: [facility] Address: [address] [place] [address] Performed By: #### A LLBG ####[facility] LABCLIA [id number] [address] [place] Order Comment: Speci men Type: VENOUS BLOOD SPECIMENOrdering Facility: [facility] Address: [address] [place] [address] Performed By: #### 2 4344-4 ####[facility] LABCLIA [id number] [place] [address] [place] Calcium.ionized (Bld) [Mass/Vol] 1.16 mmol/L Normal 1.08-1.30 [facility] Comment on above: Order Comment: Speci men Type: ARTERIAL BLOOD SPECIMENOrdering Facility: [facility] Address: [address] [place] [address] Performed By: #### A LLBG ####[facility] LABCLIA [id number] [place] [address] [place] Calcium.ionized adjusted to pH 7.4 (BldA) [Moles/Vol] 1.19 mmol/L Normal 1.08-1.30 [facility] Comment on above: Order Comment: Speci men Type: ARTERIAL BLOOD SPECIMENOrdering Facility: [facility] Address: [address] [place] [address] Performed By: #### A LLBG ####[facility] LABIA [id number] [place] [address] [place] Carboxyhemoglobin (BldA) [Mass fraction] 1.2 % Normal 0.0-2.0 [facility] Comment on above: Order Comment: Speci men Type: ARTERIAL BLOOD SPECIMENOrdering Facility: [facility] Address: [address] [place] [address] Result Comment: Carb oxyhemoglobin Reference Range for Smokers: 2.0-8.0% Performed By: #### A LLBG ####[facility] LABCLIA [id number] [place] [address] [place] CO2 (Bld) [Partial pressure] 44 mm Hg Normal 36-46 [facility] Comment on above: Order Comment: Speci men Type: ARTERIAL BLOOD SPECIMENOrdering Facility: [facility] Address: [address] [place] [address] Performed By: #### A LLBG ####[facility] LABCLIA [id number] [place] [address] [place] Glucose [Mass/Vol] 139 mg/dL High 60-105 [facility] Comment on above: Order Comment: Speci men Type: ARTERIAL BLOOD SPECIMENOrdering Facility: [facility] Address: [address] [place] [address] Performed By: #### A LLBG ####[facility] LABCLIA [id number] [place] [address] [place] HCO3 (Bld) [Moles/Vol] 30 mmol/L High 22-26 [facility] Comment on above: Order Comment: Speci men Type: ARTERIAL BLOOD SPECIMENOrdering Facility: [facility] Address: [address] [place] [address] Performed By: #### A LLBG ####[facility] LABCLIA [id number] [place] [address] [place] Hematocrit (Bld) [Volume fraction] 29.4 % Low 39.0-51.0 [facility] Comment on above: Order Comment: Speci men Type: ARTERIAL BLOOD SPECIMENOrdering Facility: [facility] Address: [address] [place] [address] Performed By: #### A LLBG ####[facility] LABCLIA [id number] [place] [address] [place] Hemoglobin (Bld) [Mass/Vol] 9.5 g/dL Low 13.0-17.0 [facility] Comment on above: Order Comment: Speci men Type: ARTERIAL BLOOD SPECIMENOrdering Facility: [facility] Address: [address] [place] [address] Performed By: #### A LLBG ####[facility] LABCLIA [id number] [place] [address] [place] Lactate [Moles/Vol] 0.7 mmol/L Normal 0.5-2.2 [facility] Comment on above: Order Comment: Speci men Type: ARTERIAL BLOOD SPECIMENOrdering Facility: [facility] Address: [address] [place] [address] Performed By: #### A LLBG ####[facility] LABCLIA [id number] [address] [address] [place] Order Comment: Speci men Type: VENOUS BLOOD SPECIMENOrdering Facility: [facility] Address: [address] [place], [place] [address] Performed By: #### 2 4344-4 ####[facility] LABCLIA [id number] [address] [address] [place] LITERS 3 Liters/min Normal [facility] Comment on above: Order Comment: Speci men Type: ARTERIAL BLOOD SPECIMENOrdering Facility: [facility] Address: [address] [place], [place] [address] Performed By: #### A LLBG ####[facility] LABCLIA [id number] [place] [id number] [place] Order Comment: Speci men Type: VENOUS BLOOD SPECIMENOrdering Facility: [facility] Address: [address] [place], [place] [address] Performed By: #### 2 4344-4 ####[facility] LABCLIA [id number] [address] [address] [place] Methemoglobin (Bld) [Mass fraction] 0.7 % Normal 0.0-1.5 [facility] Comment on above: Order Comment: Speci men Type: ARTERIAL BLOOD SPECIMENOrdering Facility: [facility] Address: [address] [place], [place] [address] Performed By: #### A LLBG ####[facility] LABCLIA [id number] [place] [id number] [place] O2 THERAPY NC = Nasal Cannula Normal [facility] Comment on above: Order Comment: Speci men Type: ARTERIAL BLOOD SPECIMENOrdering Facility: [facility] Address: [address] [place], [place] [address] Performed By: #### A LLBG ####[facility] LABCLIA [id number] [place] [id number] [place] Order Comment: Speci men Type: VENOUS BLOOD SPECIMENOrdering Facility: [facility] Address: [address] [place] [address] Performed By: #### 2 4344-4 ####[facility] LABCLIA [id number] [place] [id number] [place] Oxygen (Bld) [Partial pressure] 99 mm Hg High 85-95 [facility] Comment on above: Order Comment: Speci men Type: ARTERIAL BLOOD SPECIMENOrdering Facility: [facility] Address: [address] [place] [address] Performed By: #### A LLBG ####[facility] LABCLIA [id number] [place] [address] [place] Oxyhemoglobin (BldA) [Mass fraction] 96 % Normal 95-98 [facility] Comment on above: Order Comment: Speci men Type: ARTERIAL BLOOD SPECIMENOrdering Facility: [facility] Address: [address] [place] [address] Performed By: #### A LLBG ####[facility] LABCLIA [id number] [place] [id number] [place] pH (Bld) 7.45 [pH] Normal 7.35-7.45 [facility] Comment on above: Order Comment: Speci men Type: ARTERIAL BLOOD SPECIMENOrdering Facility: [facility] Address: [address] [place] [address] Performed By: #### A LLBG ####[facility] LABCLIA [id number] [place] [address] [place] Potassium [Moles/Vol] 4.7 mmol/L Normal 3.5-5.0 [facility] Comment on above: Order Comment: Speci men Type: ARTERIAL BLOOD SPECIMENOrdering Facility: [facility] Address: [address] [place] [address] Performed By: #### A LLBG ####[facility] LABCLIA [id number] [place] [address] [place] Sodium [Moles/Vol] 132 mmol/L Low 136-144 [facility] Comment on above: Order Comment: Speci men Type: ARTERIAL BLOOD SPECIMENOrdering Facility: [facility] Address: [address] [place] [address] Performed By: #### A LLBG ####[facility] LABCLIA [id number] [place] [address] [place] Base excess Calc (Bld) [Moles/Vol] 3 mmol/L High 0-2 [facility] Comment on above: Order Comment: Speci men Type: ARTERIAL BLOOD SPECIMENOrdering Facility: [facility] Address: [address] [place] [address] Performed By: #### A LLBG ####[facility] LABCLIA [id number] [place] [address] [place] Body temperature 97.88 [degF] Normal [facility] Comment on above: Order Comment: Speci men Type: ARTERIAL BLOOD SPECIMENOrdering Facility: [facility] Address: [address] [place] [address] Performed By: #### A LLBG ####[facility] LABCLIA [id number] [place] [address] [place] Order Comment: Speci men Type: VENOUS BLOOD SPECIMENOrdering Facility: [facility] Address: [address] [place] [address] Performed By: #### 2 4344-4 ####[facility] LABCLIA [id number] [place] [address] [place] Calcium.ionized (Bld) [Mass/Vol] 1.17 mmol/L Normal 1.08-1.30 [facility] Comment on above: Order Comment: Speci men Type: ARTERIAL BLOOD SPECIMENOrdering Facility: [facility] Address: [address] [place] [address] Performed By: #### A LLBG ####[facility] LABCLIA [id number] [place] [address] [place] Calcium.ionized adjusted to pH 7.4 (BldA) [Moles/Vol] 1.16 mmol/L Normal 1.08-1.30 [facility] Comment on above: Order Comment: Speci men Type: ARTERIAL BLOOD SPECIMENOrdering Facility: [facility] Address: [address] [place] [address] Performed By: #### A LLBG ####[facility] LABCLIA [id number] [place] [address] [place] Carboxyhemoglobin (BldA) [Mass fraction] 1.4 % Normal 0.0-2.0 [facility] Comment on above: Order Comment: Speci men Type: ARTERIAL BLOOD SPECIMENOrdering Facility: [facility] Address: [address] [place] [address] Result Comment: Carb oxyhemoglobin Reference Range for Smokers: 2.0-8.0% Performed By: #### A LLBG ####[facility] LABCLIA [id number] [place] [id number] [place] CO2 (Bld) [Partial pressure] 47 mm Hg High 36-46 [facility] Comment on above: Order Comment: Speci men Type: ARTERIAL BLOOD SPECIMENOrdering Facility: [facility] Address: [address] [place] [address] Performed By: #### A LLBG ####[facility] LABCLIA [id number] [place] [id number] [place] CO2 adjusted to patient's actual temperature (Bld) [Partial pressure] 46 mmHg Normal 36-46 [facility] Comment on above: Order Comment: Speci men Type: ARTERIAL BLOOD SPECIMENOrdering Facility: [facility] Address: [address] [place] [address] Performed By: #### A LLBG ####[facility] LABCLIA [id number] [address] [place] [address] [place] Glucose [Mass/Vol] 198 mg/dL High 60-105 [facility] Comment on above: Order Comment: Speci men Type: ARTERIAL BLOOD SPECIMENOrdering Facility: [facility] Address: [address] [place] [address] Performed By: #### A LLBG ####[facility] LABCLIA [id number] [address], [facility] [place] HCO3 (Bld) [Moles/Vol] 28 mmol/L High 22-26 [facility] Comment on above: Order Comment: Speci men Type: ARTERIAL BLOOD SPECIMENOrdering Facility: [facility] Address: [address] [place] [address] Performed By: #### A LLBG ####[facility] LABCLIA [id number] [address], [facility] [place] Hematocrit (Bld) [Volume fraction] 26.5 % Low 39.0-51.0 [facility] Comment on above: Order Comment: Speci men Type: ARTERIAL BLOOD SPECIMENOrdering Facility: [facility] Address: [address] [place] [address] Performed By: #### A LLBG ####[facility] LABCLIA [id number] [address] [place] [address] [place] Order Comment: Speci men Type: VENOUS BLOOD SPECIMENOrdering Facility: [facility] Address: [address] [place] [address] Performed By: #### 2 4344-4 ####[facility] LABCLIA [id number] [address] [place] [address] [place] Hemoglobin (Bld) [Mass/Vol] 8.5 g/dL Low 13.0-17.0 [facility] Comment on above: Order Comment: Speci men Type: ARTERIAL BLOOD SPECIMENOrdering Facility: [facility] Address: [address] [place] [address] Performed By: #### A LLBG ####[facility] LABCLIA [id number] [address] [place] [address] [place] Order Comment: Speci men Type: VENOUS BLOOD SPECIMENOrdering Facility: [facility] Address: [address] [place] [address] Performed By: #### 2 4344-4 ####[facility] LABCLIA [id number] [address], [place] [address] [place] Lactate [Moles/Vol] 1.6 mmol/L Normal 0.5-2.2 [facility] Comment on above: Order Comment: Speci men Type: ARTERIAL BLOOD SPECIMENOrdering Facility: [facility] Address: [address] [place] [address] Performed By: #### A LLBG ####[facility] LABCLIA [id number] [address], [place] [address] [place] LITERS 3 Liters/min Normal [facility] Comment on above: Order Comment: Speci men Type: ARTERIAL BLOOD SPECIMENOrdering Facility: [facility] Address: [address] [place] [address] Performed By: #### A LLBG ####[facility] LABCLIA [id number] [address] [place] [address] [place] Order Comment: Speci men Type: VENOUS BLOOD SPECIMENOrdering Facility: [facility] Address: [address] [place] [address] Performed By: #### 2 4344-4 ####[facility] LABCLIA [id number] [address] [place] [address] [place] Methemoglobin (Bld) [Mass fraction] 1.6 % High 0.0-1.5 [facility] Comment on above: Order Comment: Speci men Type: ARTERIAL BLOOD SPECIMENOrdering Facility: [facility] Address: [address] [place] [address] Performed By: #### A LLBG ####[facility] LABCLIA [id number] [address] [place] [address] [place] O2 THERAPY NC = Nasal Cannula Normal [facility] Comment on above: Order Comment: Speci men Type: ARTERIAL BLOOD SPECIMENOrdering Facility: [facility] Address: [address] [place] [id number] Performed By: #### A LLBG ####[facility] LABCLIA [id number] [address] [address] [place] Order Comment: Speci men Type: VENOUS BLOOD SPECIMENOrdering Facility: [facility] Address: [address] [place], [place] [address] Performed By: #### 2 4344-4 ####[facility] LABCLIA [id number] [address] [place] [address] [place] Oxygen (Bld) [Partial pressure] 111 mm Hg High 85-95 [facility] Comment on above: Order Comment: Speci men Type: ARTERIAL BLOOD SPECIMENOrdering Facility: [facility] Address: [address] [place] [address] Performed By: #### A LLBG ####[facility] LABCLIA [id number] [address] [place] [address] [place] Oxygen adjusted to patient's actual temperature (Bld) [Partial pressure] 108 mmHg High 85-95 [facility] Comment on above: Order Comment: Speci men Type: ARTERIAL BLOOD SPECIMENOrdering Facility: [facility] Address: [address] [place] [address] Performed By: #### A LLBG ####[facility] LABCLIA [id number] [address] [place] [address] [place] Oxyhemoglobin (BldA) [Mass fraction] 97 % Normal 95-98 [facility] Comment on above: Order Comment: Speci men Type: ARTERIAL BLOOD SPECIMENOrdering Facility: [facility] Address: [address] [place] [address] Performed By: #### A LLBG ####[facility] LABCLIA [id number] [address] [address] [place] pH (Bld) 7.39 [pH] Normal 7.35-7.45 [facility] Comment on above: Order Comment: Speci men Type: ARTERIAL BLOOD SPECIMENOrdering Facility: [facility] Address: [address] [place] [address] Performed By: #### A LLBG ####[facility] LABCLIA [id number] [address] [place] pH adjusted to patient's actual temperature (Bld) 7.40 Normal 7.35-7.45 [facility] Comment on above: Order Comment: Speci men Type: ARTERIAL BLOOD SPECIMENOrdering Facility: [facility] Address: [address] [place] [address] Performed By: #### A LLBG ####[facility] LABIA [id number] [place] [address] [place] Potassium [Moles/Vol] 4.6 mmol/L Normal 3.5-5.0 [facility] Comment on above: Order Comment: Speci men Type: ARTERIAL BLOOD SPECIMENOrdering Facility: [facility] Address: [address] [place] [address] Performed By: #### A LLBG ####[facility] LABIA [id number] [place] [id number] [place] CBC panel Auto (Bld)on 10-21 Erythrocyte distribution width (RBC) [Ratio] 17.3 % High 11.5-15.0 [facility] Comment on above: Order Comment: Speci men Type: BLOOD SPECIMENOrdering Facility: [facility] Address: [address] [place] [address] Performed By: #### 5 8410-2 ####[facility] LABCLIA [id number] [place] [address] [place] Hematocrit (Bld) [Volume fraction] 27.1 % Low 39.0-51.0 [facility] Comment on above: Order Comment: Speci men Type: BLOOD SPECIMENOrdering Facility: [facility] [facility] Address: [address] [place] [address] Performed By: #### 5 8410-2 ####[facility] LABIA [id number] [place] [address] [place] Hemoglobin (Bld) [Mass/Vol] 8.7 g/dL Low 13.0-17.0 [facility] Comment on above: Order Comment: Speci men Type: BLOOD SPECIMENOrdering Facility: [facility] Address: [address] [place] [address] Performed By: #### 5 8410-2 ####[facility] LABIA [id number] [place] [address] [place] MCH (RBC) [Entitic mass] 31.8 pg Normal 26.0-34.0 [facility] Comment on above: Order Comment: Speci men Type: BLOOD SPECIMENOrdering Facility: [facility] Address: [address] [place] [address] Performed By: #### 5 8410-2 ####[facility] LABIA [id number] [place] [address] [place] MCHC (RBC) [Mass/Vol] 32.1 g/dL Normal 30.5-36.0 [facility] Comment on above: Order Comment: Speci men Type: BLOOD SPECIMENOrdering Facility: [facility] Address: [address] [place] [address] Performed By: #### 5 8410-2 ####[facility] LABCLIA [id number] [place] [address] [place] MCV (RBC) [Entitic vol] 98.9 fL Normal 80.0-100.0 [facility] Comment on above: Order Comment: Speci men Type: BLOOD SPECIMENOrdering Facility: [facility] Address: [address] [place] [address] Performed By: #### 5 8410-2 ####[facility] LABIA [id number] [place] [address] [place] Nucleated RBC (Bld) [#/Vol] 10*3/uL Normal <0.01 [facility] Comment on above: Order Comment: Speci men Type: BLOOD SPECIMENOrdering Facility: [facility] Address: [address] [place] [address] Performed By: #### 5 8410-2 ####[facility] LABIA [id number] [place] [address] [place] Platelet mean volume (Bld) [Entitic vol] 12.0 fL Normal 9.0-12.7 [facility] Comment on above: Order Comment: Speci men Type: BLOOD SPECIMENOrdering Facility: [facility] Address: [address] [place] [address] Performed By: #### 5 8410-2 ####[facility] LABIA [id number] [place] [address] [place] Platelets (Bld) [#/Vol] 114 10*3/uL Low 150-400 [facility] Comment on above: Order Comment: Speci men Type: BLOOD SPECIMENOrdering Facility: [facility] Address: [address] [place] [address] Performed By: #### 5 8410-2 ####[facility] LABCLIA [id number] [place] [address] [place] RBC (Bld) [#/Vol] 2.74 10*6/uL Low 4.20-6.00 [facility] Comment on above: Order Comment: Speci men Type: BLOOD SPECIMENOrdering Facility: [facility] Address: [address] [place] [address] Performed By: #### 5 8410-2 ####[facility] LABCLIA [id number] [address] [address] [place] WBC (Bld) [#/Vol] 4.74 10*3/uL Normal 3.70-11.00 [facility] Comment on above: Order Comment: Speci men Type: BLOOD SPECIMENOrdering Facility: [facility] Address: [address] [place] [address] Performed By: #### 5 8410-2 ####[facility] LABCLIA [id number] [place] [address] [place] Comp Metab 2000 Pnl SerPlon 10-21-2024 Sodium [Moles/Vol] 133 mmol/L Low 136-144 [facility] Comment on above: Order Comment: Speci men Type: BLOOD SPECIMENOrdering Facility: [facility] Address: [address] [place] [address] Performed By: #### 2 4323-8, 44971-7, 2777-1 ####[facility] LABCLIA [id number] [place] [address] [place] Order Comment: Speci men Type: ARTERIAL BLOOD SPECIMENOrdering Facility: [facility] Address: [address] [place] [address] Performed By: #### A LLBG ####[facility] LABCLIA [id number] [place] [id number] [place] Comprehensive metabolic 2000 panelon 10-21-2024 Albumin [Mass/Vol] 2.6 g/dL Low 3.9-4.9 [facility] Comment on above: Order Comment: Speci men Type: BLOOD SPECIMENOrdering Facility: [facility] Address: [address] [place] [address] Performed By: #### 2 4323-8, 77445-3, 2776- ####[facility] LABCLIA [id number] [address] [address] [place] ALP [Catalytic activity/Vol] 99 U/L Normal 38-113 [facility] Comment on above: Order Comment: Speci men Type: BLOOD SPECIMENOrdering Facility: [facility] Address: [address] [place] [address] Performed By: #### 2 4323-8, , 2776-02 ####[facility] LABCLIA [id number] [place] [address] [place] ALT [Catalytic activity/Vol] 12 U/L Normal 10-54 [facility] Comment on above: Order Comment: Speci men Type: BLOOD SPECIMENOrdering Facility: [facility] Address: [address] [place] [address] Performed By: #### 2 4323-8, , 2776-02 ####[facility] LABCLIA [id number] [place] [id number] [place] Anion gap [Moles/Vol] 8 mmol/L Normal 8-15 [facility] Comment on above: Order Comment: Speci men Type: BLOOD SPECIMENOrdering Facility: [facility] Address: [address] [place], [place] [address] Performed By: #### 2 4323-8, , 2776-02 ####[facility] LABCLIA [id number] [address] [address] [place] AST [Catalytic activity/Vol] 23 U/L Normal 14-40 [facility] Comment on above: Order Comment: Speci men Type: BLOOD SPECIMENOrdering Facility: [facility] Address: [address] [place], [place] [address] Performed By: #### 2 4323-8, 20421-3, 2776-02 ####[facility] LABCLIA [id number] [address] [address] [place] Bilirubin [Mass/Vol] 0.2 mg/dL Normal 0.2-1.3 [facility] Comment on above: Order Comment: Speci men Type: BLOOD SPECIMENOrdering Facility: [facility] Address: [address] [place], [place] [address] Performed By: #### 2 4323-8, , 2776-02 ####[facility] LABCLIA [id number] [address] [address] [place] Calcium [Mass/Vol] 8.1 mg/dL Low 8.5-10.2 [facility] Comment on above: Order Comment: Speci men Type: BLOOD SPECIMENOrdering Facility: [facility] Address: [address] [place], [place] [address] Performed By: #### 2 4323-8, , 2776-02 ####[facility] LABCLIA [id number] [place] [address] [place] Chloride [Moles/Vol] 98 mmol/L Normal 98-107 [facility] Comment on above: Order Comment: Speci men Type: BLOOD SPECIMENOrdering Facility: [facility] Address: [address] [place], [place] [address] Performed By: #### 2 4323-8, , 2776-02 ####[facility] LABCLIA [id number] [address] [address] [place] CO2 [Moles/Vol] 27 mmol/L Normal 22-30 [facility] Comment on above: Order Comment: Speci men Type: BLOOD SPECIMENOrdering Facility: [facility] Address: [address] [place], [place] [address] Performed By: #### 2 4323-8, , 2776-02 ####[facility] LABCLIA [id number] [address] [address] [place] Creatinine [Mass/Vol] 1.45 mg/dL High 0.73-1.22 [facility] Comment on above: Order Comment: Gini nowak Type: BLOOD SPECIMENOrdering Facility: [facility] Address: [address] [place] [address] Performed By: #### 2 4323-8, 47256-4, 2776-02 ####[facility] LABIA [id number] [place] [address] [place] eGFRcr SerPlBld CKD-EPI 2020 54 mL/min/1.73m??? Low >=60 [facility] Comment on above: Order Comment: Gini nowak Type: BLOOD SPECIMENOrdering Facility: [facility] Address: [address] [place] [address] Result Comment: Gurwinder mated Glomerular Filtration Rate [...] Performed By: #### 2 4323-8, , 2776-02 ####[facility] LABIA [id number] [address] [address] [place] Glucose [Mass/Vol] 193 mg/dL High 74-99 [facility] Comment on above: Order Comment: Gini nowak Type: BLOOD SPECIMENOrdering Facility: [facility] Address: [address] [place] [address] Result Comment: The [place] [employer] (ADA) provides guidance for cutoff [...] Standards of Medical Care in Diabetes 2016, [place] [employer]. Diabetes Care. 2016.39(Suppl 1). Performed By: #### 2 4323-8, 32972-8, 2776- ####[facility] LABCLIA [id number] [place] [id number] [place] Potassium [Moles/Vol] 4.8 mmol/L Normal 3.7-5.1 [facility] Comment on above: Order Comment: Speci men Type: BLOOD SPECIMENOrdering Facility: [facility] Address: [address] [place] [address] Performed By: #### 2 4323-8, , 2776-02 ####[facility] LABCLIA [id number] [place] [address] [place] Protein [Mass/Vol] 5.0 g/dL Low 6.3-8.0 [facility] Comment on above: Order Comment: Speci men Type: BLOOD SPECIMENOrdering Facility: [facility] Address: [address] [place] [address] Performed By: #### 2 4323-8, , 2776-02 ####[facility] LABCLIA [id number] [place] [address] [place] Urea nitrogen [Mass/Vol] 22 mg/dL Normal 9-24 [facility] Comment on above: Order Comment: Speci men Type: BLOOD SPECIMENOrdering Facility: [facility] Address: [address] [place] [address] Performed By: #### 2 4323-8, , 2776-02 ####[facility] LABCLIA [id number] [address] [address] [place] Fact Xa PPP-aCncon 09-13-202 5 Coagulation factor X activated act Coag Qn (PPP) 0.53 IU/mL High <0.10 [facility] Comment on above: Order Comment: Speci men Type: BLOOD SPECIMENOrdering Facility: [facility] Address: [address] [place] [address] Result Comment: The recommended therapeutic range for treatment of venous and arterial thrombosis with intravenous unfractionated heparin is an anti Xa activity level of 0.3 to 0.7 IU/mL. In patients with concomitant therapy with thrombolytic agents and/or platelet glycoprotein IIb/IIIa antagonists, the recommended therapeutic range is an anti Xa activity level of 0.2 to 0.5 IU/mL. Performed By: #### 3 217-7 ####[facility] LABIA [id number] [place] [address] [place] Gas + CO Pnl BldVon 10-22-19 25 Body temperature 97.52 [degF] Normal [facility] Comment on above: Order Comment: Speci men Type: VENOUS BLOOD SPECIMENOrdering Facility: [facility] Address: [address] [place] [address] Performed By: #### 2 4344-4 ####[facility] LABIA [id number] [place] [address] [place] Order Comment: Speci men Type: ARTERIAL BLOOD SPECIMENOrdering Facility: [facility] Address: [address] [place] [address] Performed By: #### A LLBG ####[facility] LABIA [id number] [place] [address] [place] HCO3 (Bld) [Moles/Vol] 31 mmol/L High 22-26 [facility] Comment on above: Order Comment: Speci men Type: VENOUS BLOOD SPECIMENOrdering Facility: [facility] Address: [address] [place] [address] Performed By: #### 2 4344-4 ####[facility] LABIA [id number] [address] [id number] [address] [place] Order Comment: Speci men Type: ARTERIAL BLOOD SPECIMENOrdering Facility: [facility] Address: [address] [place] [address] Performed By: #### A LLBG ####[facility] LABCLIA [id number] [address] [place] [address] [place] LITERS 3 Liters/min Normal [facility] Comment on above: Order Comment: Speci men Type: VENOUS BLOOD SPECIMENOrdering Facility: [facility] Address: [address] [place] [address] Performed By: #### 2 4344-4 ####[facility] LABCLIA [id number] [address] [place] [address] [place] Order Comment: Speci men Type: ARTERIAL BLOOD SPECIMENOrdering Facility: [facility] Address: [address] [place] [address] Performed By: #### A LLBG ####[facility] LABCLIA [id number] [address] [place] [address] [place] O2 THERAPY [place] = Nasal Cannula Normal [facility] Comment on above: Order Comment: Speci men Type: VENOUS BLOOD SPECIMENOrdering Facility: [facility] Address: [address] [place] [address] Performed By: #### 2 4344-4 ####[facility] LABCLIA [id number] [address] [place] [address] [place] Order Comment: Speci men Type: ARTERIAL BLOOD SPECIMENOrdering Facility: [facility] Address: [address] [place] [address] Performed By: #### A LLBG ####[facility] LABCLIA [id number] [address] [place] [address] [place] Body temperature 97.52 [degF] Normal [facility] Comment on above: Order Comment: Speci men Type: VENOUS BLOOD SPECIMENOrdering Facility: [facility] Address: [address] [place] [address] Performed By: #### 2 4344-4 ####[facility] LABCLIA [id number] [address] [place] [address] [place] Order Comment: Speci men Type: ARTERIAL BLOOD SPECIMENOrdering Facility: [facility] Address: [address] [place] [address] Performed By: #### A LLBG ####[facility] LABCLIA [id number] [address] [place] [address] [place] LITERS 3 Liters/min Normal [facility] Comment on above: Order Comment: Speci men Type: VENOUS BLOOD SPECIMENOrdering Facility: [facility] Address: [address] [place], [place] [address] Performed By: #### 2 4344-4 ####[facility] LABCLIA [id number] [address] [place] [address] [place] Order Comment: Speci men Type: ARTERIAL BLOOD SPECIMENOrdering Facility: [facility] Address: [address] [place] [address] Performed By: #### A LLBG ####[facility] LABCLIA [id number] [address] [place] [address] [place] O2 THERAPY [place] = Nasal Cannula Normal [facility] Comment on above: Order Comment: Speci men Type: VENOUS BLOOD SPECIMENOrdering Facility: [facility] Address: [address] [place] [address] Performed By: #### 2 4344-4 ####[facility] LABCLIA [id number] [address] [place] [address] [place] Order Comment: Speci men Type: ARTERIAL BLOOD SPECIMENOrdering Facility: [facility] Address: [address] [place] [address] Performed By: #### A LLBG ####[facility] LABCLIA [id number] [address] [id number] [address] [place] Gas and Carbon monoxide pane l (BldV)on 10-21-2024 Base excess Calc (BldV) [Moles/Vol] 5 mmol/L High 0-2 [facility] Comment on above: Order Comment: Speci men Type: VENOUS BLOOD SPECIMENOrdering Facility: [facility] Address: [address] [place] [address] Performed By: #### 2 4344-4 ####[facility] LABIA [id number] [address] [place] Body temperature 98.6 [degF] Normal [facility] Comment on above: Order Comment: Speci men Type: VENOUS BLOOD SPECIMENOrdering Facility: [facility] Address: [address] [place] [address] Performed By: #### 2 4344-4 ####[facility] LABIA [id number] [address] [place] Calcium.ionized (Bld) [Mass/Vol] 1.07 mmol/L Low 1.08-1.30 [facility] Comment on above: Order Comment: Speci men Type: VENOUS BLOOD SPECIMENOrdering Facility: [facility] Address: [address] [place] [address] Performed By: #### 2 4344-4 ####[facility] [id number] [address] [place] Calcium.ionized adjusted to pH 7.4 (BldA) [Moles/Vol] 1.08 mmol/L Normal 1.08-1.30 [facility] Comment on above: Order Comment: Speci men Type: VENOUS BLOOD SPECIMENOrdering Facility: [facility] Address: [address] [place] [address] Performed By: #### 2 4344-4 ####[facility] LABIA [id number] [address] [place] Carboxyhemoglobin (BldV) [Mass fraction] 1.0 % Normal 0.0-2.0 [facility] Comment on above: Order Comment: Speci men Type: VENOUS BLOOD SPECIMENOrdering Facility: [facility] Address: [address] [place] [address] Result Comment: Carb oxyhemoglobin Reference Range for Smokers: 2.0-8.0% Performed By: #### 2 4344-4 ####[facility] LABCLIA [id number] [place] [address] [place] CO2 (BldV) [Partial pressure] 48 mm[Hg] Normal 42-55 [facility] Comment on above: Order Comment: Speci men Type: VENOUS BLOOD SPECIMENOrdering Facility: [facility] Address: [address] [place] [address] Performed By: #### 2 4344-4 ####[facility] LABCLIA [id number] [place] [address] [place] Glucose [Mass/Vol] 152 mg/dL High 60-105 [facility] Comment on above: Order Comment: Speci men Type: VENOUS BLOOD SPECIMENOrdering Facility: [facility] Address: [address] [place] [address] Performed By: #### 2 4344-4 ####[facility] LABCLIA [id number] [place] [address] [place] HCO3 (Bld) [Moles/Vol] 29 mmol/L High 24-28 [facility] Comment on above: Order Comment: Speci men Type: VENOUS BLOOD SPECIMENOrdering Facility: [facility] Address: [address] [place] [address] Performed By: #### 2 4344-4 ####[facility] LABCLIA [id number] [place] [address] [place] Hematocrit (Bld) [Volume fraction] 25.7 % Low 39.0-51.0 [facility] Comment on above: Order Comment: Speci men Type: VENOUS BLOOD SPECIMENOrdering Facility: [facility] Address: [address] [place] [address] Performed By: #### 2 4344-4 ####[facility] LABCLIA [id number] [place] [address] [place] Hemoglobin (Bld) [Mass/Vol] 8.2 g/dL Low 13.0-17.0 [facility] Comment on above: Order Comment: Speci men Type: VENOUS BLOOD SPECIMENOrdering Facility: [facility] Address: [address] [place] [address] Performed By: #### 2 4344-4 ####[facility] LABIA [id number] [place] [address] [place] Lactate [Moles/Vol] 0.9 mmol/L Normal 0.5-2.2 [facility] Comment on above: Order Comment: Speci men Type: VENOUS BLOOD SPECIMENOrdering Facility: [facility] Address: [address] [place] [address] Performed By: #### 2 4344-4 ####[facility] LABIA [id number] [place] [address] [place] Methemoglobin (Bld) [Mass fraction] 1.0 % Normal 0.0-1.5 [facility] Comment on above: Order Comment: Speci men Type: VENOUS BLOOD SPECIMENOrdering Facility: [facility] Address: [address] [place], [place] [address] Performed By: #### 2 4344-4 ####[facility] LABIA [id number] [place] [id number] [place] O2 THERAPY [place] = Nasal Cannula Normal [facility] Comment on above: Order Comment: Speci men Type: VENOUS BLOOD SPECIMENOrdering Facility: [facility] Address: [address] [place], [place] [address] Performed By: #### 2 4344-4 ####[facility] LABCLIA [id number] [address] [address] [place] Oxygen (BldV) [Partial pressure] 40 mm[Hg] Normal 35-45 [facility] Comment on above: Order Comment: Speci men Type: VENOUS BLOOD SPECIMENOrdering Facility: [facility] Address: [address] [place], [place] [address] Performed By: #### 2 4344-4 ####[facility] LABCLIA [id number] [address] [address] [place] Oxygen saturation in Venous blood 68 % Normal 60-85 [facility] Comment on above: Order Comment: Speci men Type: VENOUS BLOOD SPECIMENOrdering Facility: [facility] Address: [address] [place], [place] [address] Performed By: #### 2 4344-4 ####[facility] LABCLIA [id number] [place] [id number] [place] Oxyhemoglobin (BldV) [Mass fraction] 66 % Normal 60-85 [facility] Comment on above: Order Comment: Speci men Type: VENOUS BLOOD SPECIMENOrdering Facility: [facility] Address: [address] [place], [place] [address] Performed By: #### 2 4344-4 ####[facility] LABCLIA [id number] [address] [address] [place] pH (BldV) 7.41 [pH] Normal 7.32-7.42 [facility] Comment on above: Order Comment: Speci men Type: VENOUS BLOOD SPECIMENOrdering Facility: [facility] Address: [address] [place] [address] Performed By: #### 2 4344-4 ####[facility] LABCLIA [id number] [address] [address] [place] Potassium [Moles/Vol] 3.9 mmol/L Normal 3.5-5.0 [facility] Comment on above: Order Comment: Speci men Type: VENOUS BLOOD SPECIMENOrdering Facility: [facility] Address: [address] [place] [address] Performed By: #### 2 4344-4 ####[facility] LABCLIA [id number] [place] [address] [place] Sodium [Moles/Vol] 133 mmol/L Low 136-144 [facility] Comment on above: Order Comment: Speci men Type: VENOUS BLOOD SPECIMENOrdering Facility: [facility] Address: [address] [place] [address] Performed By: #### 2 4344-4 ####[facility] LABCLIA [id number] [place] [address] [place] Base excess Calc (BldV) [Moles/Vol] 7 mmol/L High 0-2 [facility] Comment on above: Order Comment: Speci men Type: VENOUS BLOOD SPECIMENOrdering Facility: [facility] Address: [address] [place] [address] Performed By: #### 2 4344-4 ####[facility] LABIA [id number] [place] [address] [place] Body temperature 98.24 [degF] Normal [facility] Comment on above: Order Comment: Speci men Type: VENOUS BLOOD SPECIMENOrdering Facility: [facility] Address: [address] [place] [address] Performed By: #### 2 4344-4 ####[facility] LABCLIA [id number] [place] [address] [place] Calcium.ionized (Bld) [Mass/Vol] 1.12 mmol/L Normal 1.08-1.30 [facility] Comment on above: Order Comment: Speci men Type: VENOUS BLOOD SPECIMENOrdering Facility: [facility] Address: [address] [place] [address] Performed By: #### 2 4344-4 ####[facility] LABCLIA [id number] [place] [address] [place] Calcium.ionized adjusted to pH 7.4 (BldA) [Moles/Vol] 1.12 mmol/L Normal 1.08-1.30 [facility] Comment on above: Order Comment: Speci men Type: VENOUS BLOOD SPECIMENOrdering Facility: [facility] Address: [address] [place] [address] Performed By: #### 2 4344-4 ####[facility] LABIA [id number] [place] [address] [place] Carboxyhemoglobin (BldV) [Mass fraction] 1.1 % Normal 0.0-2.0 [facility] Comment on above: Order Comment: Speci men Type: VENOUS BLOOD SPECIMENOrdering Facility: [facility] Address: [address] [place] [address] Result Comment: Carb oxyhemoglobin Reference Range for Smokers: 2.0-8.0% Performed By: #### 2 4344-4 ####[facility] LABCLIA [id number] [place] [address] [place] CO2 (BldV) [Partial pressure] 51 mm[Hg] Normal 42-55 [facility] Comment on above: Order Comment: Speci men Type: VENOUS BLOOD SPECIMENOrdering Facility: [facility] Address: [address] [place] [address] Performed By: #### 2 4344-4 ####[facility] LABCLIA [id number] [place] [address] [place] CO2 adjusted to patient's actual temperature (BldV) [Partial pressure] 51 mmHg Normal 42-55 [facility] Comment on above: Order Comment: Speci men Type: VENOUS BLOOD SPECIMENOrdering Facility: [facility] Address: [address] [place] [address] Performed By: #### 2 4344-4 ####[facility] LABIA [id number] [place] [id number] [place] Glucose [Mass/Vol] 177 mg/dL High 60-105 [facility] Comment on above: Order Comment: Speci men Type: VENOUS BLOOD SPECIMENOrdering Facility: [facility] Address: [address] [place] [address] Performed By: #### 2 4344-4 ####[facility] LABCLIA [id number] [place] [address] [place] HCO3 (Bld) [Moles/Vol] 32 mmol/L High 24-28 [facility] Comment on above: Order Comment: Speci men Type: VENOUS BLOOD SPECIMENOrdering Facility: [facility] Address: [address] [place] [address] Performed By: #### 2 4344-4 ####[facility] LABIA [id number] [place] [address] [place] Hematocrit (Bld) [Volume fraction] 26.3 % Low 39.0-51.0 [facility] Comment on above: Order Comment: Speci men Type: VENOUS BLOOD SPECIMENOrdering Facility: [facility] Address: [address] [place] [address] Performed By: #### 2 4344-4 ####[facility] LABIA [id number] [place] [address] [place] Hemoglobin (Bld) [Mass/Vol] 8.5 g/dL Low 13.0-17.0 [facility] Comment on above: Order Comment: Speci men Type: VENOUS BLOOD SPECIMENOrdering Facility: [facility] Address: [address] [place] [address] Performed By: #### 2 4344-4 ####[facility] LABIA [id number] [place] [id number] [place] Lactate [Moles/Vol] 0.6 mmol/L Normal 0.5-2.2 [facility] Comment on above: Order Comment: Speci men Type: VENOUS BLOOD SPECIMENOrdering Facility: [facility] Address: [address] [place] [id number] Performed By: #### 2 4344-4 ####[facility] LABCLIA [id number] [place] [id number] [place] LITERS 3 Liters/min Normal [facility] Comment on above: Order Comment: Speci men Type: VENOUS BLOOD SPECIMENOrdering Facility: [facility] Address: [address] [place], [place] [address] Performed By: #### 2 4344-4 ####[facility] LABCLIA [id number] [place] [id number] [place] Methemoglobin (Bld) [Mass fraction] 1.3 % Normal 0.0-1.5 [facility] Comment on above: Order Comment: Speci men Type: VENOUS BLOOD SPECIMENOrdering Facility: [facility] Address: [address] [place] [address] Performed By: #### 2 4344-4 ####[facility] LABIA [id number] [place] [id number] [place] O2 THERAPY NC = Nasal Cannula Normal [facility] Comment on above: Order Comment: Speci men Type: VENOUS BLOOD SPECIMENOrdering Facility: [facility] Address: [address] [place], [place] [address] Performed By: #### 2 4344-4 ####[facility] LABCLIA [id number] [address] [address] [place] Oxygen (BldV) [Partial pressure] 36 mm[Hg] Normal 35-45 [facility] Comment on above: Order Comment: Speci men Type: VENOUS BLOOD SPECIMENOrdering Facility: [facility] Address: [address] [place], [place] [address] Performed By: #### 2 4344-4 ####[facility] LABCLIA [id number] [address] [address] [place] Oxygen adjusted to patient's actual temperature (BldV) [Partial pressure] 36 mmHg Normal 35-45 [facility] Comment on above: Order Comment: Speci men Type: VENOUS BLOOD SPECIMENOrdering Facility: [facility] Address: [address] [place], [place] [address] Performed By: #### 2 4344-4 ####[facility] LABCLIA [id number] [address] [address] [place] Oxygen saturation in Venous blood 63 % Normal 60-85 [facility] Comment on above: Order Comment: Speci men Type: VENOUS BLOOD SPECIMENOrdering Facility: [facility] Address: [address] [place] [address] Performed By: #### 2 4344-4 ####[facility] LABCLIA [id number] [address] [address] [place] Oxyhemoglobin (BldV) [Mass fraction] 61 % Normal 60-85 [facility] Comment on above: Order Comment: Speci men Type: VENOUS BLOOD SPECIMENOrdering Facility: [facility] Address: [address] [place] [address] Performed By: #### 2 4344-4 ####[facility] LABCLIA [id number] [address] [address] [place] pH (BldV) 7.41 [pH] Normal 7.32-7.42 [facility] Comment on above: Order Comment: Speci men Type: VENOUS BLOOD SPECIMENOrdering Facility: [facility] Address: [address] [place], [place] [address] Performed By: #### 2 4344-4 ####[facility] LABCLIA [id number] [address] [address] [place] pH adjusted to patient's actual temperature (BldV) 7.41 Normal 7.32-7.42 [facility] Comment on above: Order Comment: Speci men Type: VENOUS BLOOD SPECIMENOrdering Facility: [facility] Address: [address] [place] [address] [place] [address] Performed By: #### 2 4344-4 ####[facility] LABCLIA [id number] [address] [address] [place] Potassium [Moles/Vol] 4.4 mmol/L Normal 3.5-5.0 [facility] Comment on above: Order Comment: Speci men Type: VENOUS BLOOD SPECIMENOrdering Facility: [facility] Address: [address] [place] [address] Performed By: #### 2 4344-4 ####[facility] LABCLIA [id number] [place] [id number] [place] Sodium [Moles/Vol] 132 mmol/L Low 136-144 [facility] Comment on above: Order Comment: Speci men Type: VENOUS BLOOD SPECIMENOrdering Facility: [facility] Address: [address] [place] [address] Performed By: #### 2 4344-4 ####[facility] LABCLIA [id number] [address] [address] [place] Base excess Calc (BldV) [Moles/Vol] 7 mmol/L High 0-2 [facility] Comment on above: Order Comment: Speci men Type: VENOUS BLOOD SPECIMENOrdering Facility: [facility] Address: [address] [place], [place] [address] Performed By: #### 2 4344-4 ####[facility] LABCLIA [id number] [address] [address] [place] Body temperature 97.34 [degF] Normal [facility] Comment on above: Order Comment: Speci men Type: VENOUS BLOOD SPECIMENOrdering Facility: [facility] Address: [address] [place], [place] [address] Performed By: #### 2 4344-4 ####[facility] LABCLIA [id number] [address] [address] [place] Calcium.ionized (Bld) [Mass/Vol] 1.14 mmol/L Normal 1.08-1.30 [facility] Comment on above: Order Comment: Speci men Type: VENOUS BLOOD SPECIMENOrdering Facility: [facility] Address: [address] [place] [address] Performed By: #### 2 4344-4 ####[facility] LABIA [id number] [place] [address] [place] Calcium.ionized adjusted to pH 7.4 (BldA) [Moles/Vol] 1.14 mmol/L Normal 1.08-1.30 [facility] Comment on above: Order Comment: Speci men Type: VENOUS BLOOD SPECIMENOrdering Facility: [facility] Address: [address] [place] [address] Performed By: #### 2 4344-4 ####[facility] LABIA [id number] [address] [place] Carboxyhemoglobin (BldV) [Mass fraction] 1.4 % Normal 0.0-2.0 [facility] Comment on above: Order Comment: Speci men Type: VENOUS BLOOD SPECIMENOrdering Facility: [facility] Address: [address] [place] [address] Result Comment: Carb oxyhemoglobin Reference Range for Smokers: 2.0-8.0% Performed By: #### 2 4344-4 ####[facility] LABIA [id number] [place] [address] [place] CO2 (BldV) [Partial pressure] 50 mm[Hg] Normal 42-55 [facility] Comment on above: Order Comment: Speci men Type: VENOUS BLOOD SPECIMENOrdering Facility: [facility] Address: [address] [place] [address] Performed By: #### 2 4344-4 ####[facility] LABCLIA [id number] [place] [address] [place] CO2 adjusted to patient's actual temperature (BldV) [Partial pressure] 49 mmHg Normal 42-55 [facility] Comment on above: Order Comment: Speci men Type: VENOUS BLOOD SPECIMENOrdering Facility: [facility] Address: [address] [place] [place] [id number] Performed By: #### 2 4344-4 ####[facility] LABCLIA [id number] [place] [id number] [place] Glucose [Mass/Vol] 144 mg/dL High 60-105 [facility] Comment on above: Order Comment: Speci men Type: VENOUS BLOOD SPECIMENOrdering Facility: [facility] Address: [address] [place] [address] Performed By: #### 2 4344-4 ####[facility] LABIA [id number] [address] [place] [address] [place] HCO3 (Bld) [Moles/Vol] 32 mmol/L High 24-28 [facility] Comment on above: Order Comment: Speci men Type: VENOUS BLOOD SPECIMENOrdering Facility: [facility] Address: [address] [place], [place] [address] Performed By: #### 2 4344-4 ####[facility] LABIA [id number] [address] [address] [place] Hematocrit (Bld) [Volume fraction] 27.0 % Low 39.0-51.0 [facility] Comment on above: Order Comment: Speci men Type: VENOUS BLOOD SPECIMENOrdering Facility: [facility] Address: [address] [place], [place] [address] Performed By: #### 2 4344-4 ####[facility] LABIA [id number] [place] [id number] [place] Hemoglobin (Bld) [Mass/Vol] 8.7 g/dL Low 13.0-17.0 [facility] Comment on above: Order Comment: Speci men Type: VENOUS BLOOD SPECIMENOrdering Facility: [facility] Address: [address] [place] [address] Performed By: #### 2 4344-4 ####[facility] LABCLIA [id number] [place] [address] [place] Lactate [Moles/Vol] 0.8 mmol/L Normal 0.5-2.2 [facility] Comment on above: Order Comment: Speci men Type: VENOUS BLOOD SPECIMENOrdering Facility: [facility] Address: [address] [place] [address] Performed By: #### 2 4344-4 ####[facility] LABCLIA [id number] [place] [address] [place] LITERS 3 Liters/min Normal [facility] Comment on above: Order Comment: Speci men Type: VENOUS BLOOD SPECIMENOrdering Facility: [facility] Address: [address] [place] [address] Performed By: #### 2 4344-4 ####[facility] LABIA [id number] [place] [address] [place] Methemoglobin (Bld) [Mass fraction] 1.3 % Normal 0.0-1.5 [facility] Comment on above: Order Comment: Speci men Type: VENOUS BLOOD SPECIMENOrdering Facility: [facility] Address: [address] [place] [address] Performed By: #### 2 4344-4 ####[facility] LABCLIA [id number] [place] [address] [place] O2 THERAPY NC = Nasal Cannula Normal [facility] Comment on above: Order Comment: Speci men Type: VENOUS BLOOD SPECIMENOrdering Facility: [facility] Address: [address] [place], [place] [address] Performed By: #### 2 4344-4 ####[facility] LABCLIA [id number] [place] [id number] [place] Oxygen (BldV) [Partial pressure] 36 mm[Hg] Normal 35-45 [facility] Comment on above: Order Comment: Speci men Type: VENOUS BLOOD SPECIMENOrdering Facility: [facility] Address: [address] [place] [address] Performed By: #### 2 4344-4 ####[facility] LABCLIA [id number] [address] [address] [place] Oxygen adjusted to patient's actual temperature (BldV) [Partial pressure] 34 mmHg Low 35-45 [facility] Comment on above: Order Comment: Speci men Type: VENOUS BLOOD SPECIMENOrdering Facility: [facility] Address: [address] [place] [address] Performed By: #### 2 4344-4 ####[facility] LABCLIA [id number] [address] [address] [place] Oxygen saturation in Venous blood 59 % Low 60-85 [facility] Comment on above: Order Comment: Speci men Type: VENOUS BLOOD SPECIMENOrdering Facility: [facility] Address: [address] [place] [address] Performed By: #### 2 4344-4 ####[facility] LABCLIA [id number] [address] [address] [place] Oxyhemoglobin (BldV) [Mass fraction] 58 % Low 60-85 [facility] Comment on above: Order Comment: Speci men Type: VENOUS BLOOD SPECIMENOrdering Facility: [facility] Address: [address] [place], [place] [address] Performed By: #### 2 4344-4 ####[facility] LABCLIA [id number] [address] [address] [place] pH (BldV) 7.41 [pH] Normal 7.32-7.42 [facility] Comment on above: Order Comment: Speci men Type: VENOUS BLOOD SPECIMENOrdering Facility: [facility] Address: [address] [place], [place] [address] Performed By: #### 2 4344-4 ####[facility] LABCLIA [id number] [place] [address] [place] pH adjusted to patient's actual temperature (BldV) 7.42 Normal 7.32-7.42 [facility] Comment on above: Order Comment: Speci men Type: VENOUS BLOOD SPECIMENOrdering Facility: [facility] Address: [address] [place] [address] Performed By: #### 2 4344-4 ####[facility] LABIA [id number] [place] [address] [place] Potassium [Moles/Vol] 4.4 mmol/L Normal 3.5-5.0 [facility] Comment on above: Order Comment: Speci men Type: VENOUS BLOOD SPECIMENOrdering Facility: [facility] Address: [address] [place] [address] Performed By: #### 2 4344-4 ####[facility] LABIA [id number] [place] [address] [place] Sodium [Moles/Vol] 133 mmol/L Low 136-144 [facility] Comment on above: Order Comment: Speci men Type: VENOUS BLOOD SPECIMENOrdering Facility: [facility] Address: [address] [place] [address] Performed By: #### 2 4344-4 ####[facility] LABIA [id number] [place] [address] [place] Base excess Calc (BldV) [Moles/Vol] 6 mmol/L High 0-2 [facility] Comment on above: Order Comment: Speci men Type: VENOUS BLOOD SPECIMENOrdering Facility: [facility] Address: [address] [place] [address] Performed By: #### 2 4344-4 ####[facility] LABIA [id number] [place] [address] [place] Calcium.ionized (Bld) [Mass/Vol] 1.11 mmol/L Normal 1.08-1.30 [facility] Comment on above: Order Comment: Speci men Type: VENOUS BLOOD SPECIMENOrdering Facility: [facility] Address: [address] [place] [address] Performed By: #### 2 4344-4 ####[facility] LABCLIA [id number] [place] [address] [place] Calcium.ionized adjusted to pH 7.4 (BldA) [Moles/Vol] 1.13 mmol/L Normal 1.08-1.30 [facility] Comment on above: Order Comment: Speci men Type: VENOUS BLOOD SPECIMENOrdering Facility: [facility] Address: [address] [place] [address] Performed By: #### 2 4344-4 ####[facility] LABIA [id number] [address] [place] Carboxyhemoglobin (BldV) [Mass fraction] 1.1 % Normal 0.0-2.0 [facility] Comment on above: Order Comment: Speci men Type: VENOUS BLOOD SPECIMENOrdering Facility: [facility] Address: [address] [place] [address] Result Comment: Carb oxyhemoglobin Reference Range for Smokers: 2.0-8.0% Performed By: #### 2 4344-4 ####[facility] LABIA [id number] [place] [address] [place] CO2 (BldV) [Partial pressure] 49 mm[Hg] Normal 42-55 [facility] Comment on above: Order Comment: Speci men Type: VENOUS BLOOD SPECIMENOrdering Facility: [facility] Address: [address] [place] [address] Performed By: #### 2 4344-4 ####[facility] LABCLIA [id number] [place] [address] [place] CO2 adjusted to patient's actual temperature (BldV) [Partial pressure] 47 mmHg Normal 42-55 [facility] Comment on above: Order Comment: Speci men Type: VENOUS BLOOD SPECIMENOrdering Facility: [facility] Address: [address] [place], [place] [address] Performed By: #### 2 4344-4 ####[facility] LABCLIA [id number] [facility] [address] [address] [place] Glucose [Mass/Vol] 99 mg/dL Normal 60-105 [facility] Comment on above: Order Comment: Speci men Type: VENOUS BLOOD SPECIMENOrdering Facility: [facility] Address: [address] [place] [address] Performed By: #### 2 4344-4 ####[facility] LABCLIA [id number] [address] [place] [address] [place] Hematocrit (Bld) [Volume fraction] 26.5 % Low 39.0-51.0 [facility] Comment on above: Order Comment: Speci men Type: VENOUS BLOOD SPECIMENOrdering Facility: [facility] Address: [address] [place], [place] [address] Performed By: #### 2 4344-4 ####[facility] LABCLIA [id number] [address] [address] [place] Hemoglobin (Bld) [Mass/Vol] 8.5 g/dL Low 13.0-17.0 [facility] Comment on above: Order Comment: Speci men Type: VENOUS BLOOD SPECIMENOrdering Facility: [facility] Address: [address] [place], [place] [address] Performed By: #### 2 4344-4 ####[facility] LABCLIA [id number] [place] [id number] [place] Lactate [Moles/Vol] 1.1 mmol/L Normal 0.5-2.2 [facility] Comment on above: Order Comment: Speci men Type: VENOUS BLOOD SPECIMENOrdering Facility: [facility] Address: [address] [id number] Performed By: #### 2 4344-4 ####[facility] LABCLIA [id number] [address] [place] [address] [place] Methemoglobin (Bld) [Mass fraction] 0.9 % Normal 0.0-1.5 [facility] Comment on above: Order Comment: Speci men Type: VENOUS BLOOD SPECIMENOrdering Facility: [facility] Address: [address] [place] [address] Performed By: #### 2 4344-4 ####[facility] LABCLIA [id number] [address] [place] [address] [place] Oxygen (BldV) [Partial pressure] 37 mm[Hg] Normal 35-45 [facility] Comment on above: Order Comment: Speci men Type: VENOUS BLOOD SPECIMENOrdering Facility: [facility] Address: [address] [place] [address] Performed By: #### 2 4344-4 ####[facility] LABCLIA [id number] [address] [place] [address] [place] Oxygen adjusted to patient's actual temperature (BldV) [Partial pressure] 36 mmHg Normal 35-45 [facility] Comment on above: Order Comment: Speci men Type: VENOUS BLOOD SPECIMENOrdering Facility: [facility] Address: [address] [place], [place] [address] Performed By: #### 2 4344-4 ####[facility] LABCLIA [id number] [address] [place] [address] [place] Oxygen saturation in Venous blood 63 % Normal 60-85 [facility] Comment on above: Order Comment: Speci men Type: VENOUS BLOOD SPECIMENOrdering Facility: [facility] Address: [address] [place], [place] [address] Performed By: #### 2 4344-4 ####[facility] LABCLIA [id number] [address] [place] [address] [place] Oxyhemoglobin (BldV) [Mass fraction] 62 % Normal 60-85 [facility] Comment on above: Order Comment: Speci men Type: VENOUS BLOOD SPECIMENOrdering Facility: [facility] Address: [address] [place] [address] Performed By: #### 2 4344-4 ####[facility] LABCLIA [id number] [place] [address] [place] pH (BldV) 7.42 [pH] Normal 7.32-7.42 [facility] Comment on above: Order Comment: Speci men Type: VENOUS BLOOD SPECIMENOrdering Facility: [facility] Address: [address] [place] [address] Performed By: #### 2 4344-4 ####[facility] LABIA [id number] [place] [address] [place] pH adjusted to patient's actual temperature (BldV) 7.43 High 7.32-7.42 [facility] Comment on above: Order Comment: Speci men Type: VENOUS BLOOD SPECIMENOrdering Facility: [facility] Address: [address] [place] [address] Performed By: #### 2 4344-4 ####[facility] LABIA [id number] [place] [id number] [place] Potassium [Moles/Vol] 4.2 mmol/L Normal 3.5-5.0 [facility] Comment on above: Order Comment: Speci men Type: VENOUS BLOOD SPECIMENOrdering Facility: [facility] Address: [address] [place] [address] Performed By: #### 2 4344-4 ####[facility] LABIA [id number] [place] [id number] [place] Sodium [Moles/Vol] 133 mmol/L Low 136-144 [facility] Comment on above: Order Comment: Speci men Type: VENOUS BLOOD SPECIMENOrdering Facility: [facility] Address: [address] [place] [address] Performed By: #### 2 4344-4 ####[facility] [id number] [place] [address] [place] Base excess Calc (BldV) [Moles/Vol] 6 mmol/L High 0-2 [facility] Comment on above: Order Comment: Speci men Type: VENOUS BLOOD SPECIMENOrdering Facility: [facility] Address: [address] [place] [address] Performed By: #### 2 4344-4 ####[facility] [id number] [place] [address] [place] Calcium.ionized (Bld) [Mass/Vol] 1.12 mmol/L Normal 1.08-1.30 [facility] Comment on above: Order Comment: Speci men Type: VENOUS BLOOD SPECIMENOrdering Facility: [facility] Address: [address] [place] [address] Performed By: #### 2 4344-4 ####[facility] [id number] [place] [address] [place] Calcium.ionized adjusted to pH 7.4 (BldA) [Moles/Vol] 1.12 mmol/L Normal 1.08-1.30 [facility] Comment on above: Order Comment: Speci men Type: VENOUS BLOOD SPECIMENOrdering Facility: [facility] Address: [address] [place] [address] Performed By: #### 2 4344-4 ####[facility] [id number] [place] [address] [place] Carboxyhemoglobin (BldV) [Mass fraction] 1.2 % Normal 0.0-2.0 [facility] Comment on above: Order Comment: Speci men Type: VENOUS BLOOD SPECIMENOrdering Facility: [facility] Address: [address] [place] [address] Result Comment: Carb oxyhemoglobin Reference Range for Smokers: 2.0-8.0% Performed By: #### 2 4344-4 ####[facility] LABCLIA [id number] [address] [address] [place] CO2 (BldV) [Partial pressure] 51 mm[Hg] Normal 42-55 [facility] Comment on above: Order Comment: Speci men Type: VENOUS BLOOD SPECIMENOrdering Facility: [facility] Address: [address] [place] [address] Performed By: #### 2 4344-4 ####[facility] LABCLIA [id number] [place] [address] [place] CO2 adjusted to patient's actual temperature (BldV) [Partial pressure] 49 mmHg Normal 42-55 [facility] Comment on above: Order Comment: Speci men Type: VENOUS BLOOD SPECIMENOrdering Facility: [facility] Address: [address] [place] [address] Performed By: #### 2 4344-4 ####[facility] LABCLIA [id number] [place] [id number] [place] Glucose [Mass/Vol] 152 mg/dL High 60-105 [facility] Comment on above: Order Comment: Speci men Type: VENOUS BLOOD SPECIMENOrdering Facility: [facility] Address: [address] [place], [place] [address] Performed By: #### 2 4344-4 ####[facility] LABCLIA [id number] [address] [address] [place] HCO3 (Bld) [Moles/Vol] 31 mmol/L High 24-28 [facility] Comment on above: Order Comment: Speci men Type: VENOUS BLOOD SPECIMENOrdering Facility: [facility] Address: [address] [place], [place] [address] Performed By: #### 2 4344-4 ####[facility] LABCLIA [id number] [address] [address] [place] Hematocrit (Bld) [Volume fraction] 28.9 % Low 39.0-51.0 [facility] Comment on above: Order Comment: Speci men Type: VENOUS BLOOD SPECIMENOrdering Facility: [facility] Address: [address] [place] [address] Performed By: #### 2 4344-4 ####[facility] LABCLIA [id number] [place] [address] [place] Hemoglobin (Bld) [Mass/Vol] 9.3 g/dL Low 13.0-17.0 [facility] Comment on above: Order Comment: Speci men Type: VENOUS BLOOD SPECIMENOrdering Facility: [facility] Address: [address] [place] [address] Performed By: #### 2 4344-4 ####[facility] LABCLIA [id number] [place] [address] [place] Lactate [Moles/Vol] 0.7 mmol/L Normal 0.5-2.2 [facility] Comment on above: Order Comment: Speci men Type: VENOUS BLOOD SPECIMENOrdering Facility: [facility] Address: [address] [place] [address] Performed By: #### 2 4344-4 ####[facility] LABIA [id number] [place] [address] [place] Methemoglobin (Bld) [Mass fraction] 1.3 % Normal 0.0-1.5 [facility] Comment on above: Order Comment: Speci men Type: VENOUS BLOOD SPECIMENOrdering Facility: [facility] Address: [address] [place] [address] Performed By: #### 2 4344-4 ####[facility] LABCLIA [id number] [place] [id number] [place] Oxygen (BldV) [Partial pressure] 38 mm[Hg] Normal 35-45 [facility] Comment on above: Order Comment: Speci men Type: VENOUS BLOOD SPECIMENOrdering Facility: [facility] Address: [address] [place] [address] Performed By: #### 2 4344-4 ####[facility] LABCLIA [id number] [address] [address] [place] Oxygen adjusted to patient's actual temperature (BldV) [Partial pressure] 36 mmHg Normal 35-45 [facility] Comment on above: Order Comment: Speci men Type: VENOUS BLOOD SPECIMENOrdering Facility: [facility] Address: [address] [place], [place] [address] Performed By: #### 2 4344-4 ####[facility] LABCLIA [id number] [address] [address] [place] Oxygen saturation in Venous blood 66 % Normal 60-85 [facility] Comment on above: Order Comment: Speci men Type: VENOUS BLOOD SPECIMENOrdering Facility: [facility] Address: [address] [place], [place] [address] Performed By: #### 2 4344-4 ####[facility] LABCLIA [id number] [address] [address] [place] Oxyhemoglobin (BldV) [Mass fraction] 64 % Normal 60-85 [facility] Comment on above: Order Comment: Speci men Type: VENOUS BLOOD SPECIMENOrdering Facility: [facility] Address: [address] [place], [place] [address] Performed By: #### 2 4344-4 ####[facility] LABCLIA [id number] [address] [address] [place] pH (BldV) 7.40 [pH] Normal 7.32-7.42 [facility] Comment on above: Order Comment: Speci men Type: VENOUS BLOOD SPECIMENOrdering Facility: [facility] Address: [address] [place], [place] [address] Performed By: #### 2 4344-4 ####[facility] LABCLIA [id number] [place] [address] [place] pH adjusted to patient's actual temperature (BldV) 7.41 Normal 7.32-7.42 [facility] Comment on above: Order Comment: Speci men Type: VENOUS BLOOD SPECIMENOrdering Facility: [facility] Address: [address] [place] [address] Performed By: #### 2 4344-4 ####[facility] LABCLIA [id number] [place] [address] [place] Potassium [Moles/Vol] 4.4 mmol/L Normal 3.5-5.0 [facility] Comment on above: Order Comment: Speci men Type: VENOUS BLOOD SPECIMENOrdering Facility: [facility] Address: [address] [place] [address] Performed By: #### 2 4344-4 ####[facility] LABIA [id number] [place] [address] [place] Sodium [Moles/Vol] 132 mmol/L Low 136-144 [facility] Comment on above: Order Comment: Speci men Type: VENOUS BLOOD SPECIMENOrdering Facility: [facility] Address: [address] [place] [address] Performed By: #### 2 4344-4 ####[facility] LABIA [id number] [place] [address] [place] Base excess Calc (BldV) [Moles/Vol] 6 mmol/L High 0-2 [facility] Comment on above: Order Comment: Speci men Type: VENOUS BLOOD SPECIMENOrdering Facility: [facility] Address: [address] [place] [address] Performed By: #### 2 4344-4 ####[facility] LABCLIA [id number] [place] [address] [place] Calcium.ionized (Bld) [Mass/Vol] 1.17 mmol/L Normal 1.08-1.30 [facility] Comment on above: Order Comment: Speci men Type: VENOUS BLOOD SPECIMENOrdering Facility: [facility] Address: [address] [place] [address] Performed By: #### 2 4344-4 ####[facility] LABIA [id number] [place] [address] [place] Calcium.ionized adjusted to pH 7.4 (BldA) [Moles/Vol] 1.17 mmol/L Normal 1.08-1.30 [facility] Comment on above: Order Comment: Speci men Type: VENOUS BLOOD SPECIMENOrdering Facility: [facility] Address: [address] [place] [address] Performed By: #### 2 4344-4 ####[facility] LABIA [id number] [place] [address] [place] Carboxyhemoglobin (BldV) [Mass fraction] 1.2 % Normal 0.0-2.0 [facility] Comment on above: Order Comment: Speci men Type: VENOUS BLOOD SPECIMENOrdering Facility: [facility] Address: [address] [place] [address] Result Comment: Carb oxyhemoglobin Reference Range for Smokers: 2.0-8.0% Performed By: #### 2 4344-4 ####[facility] LABIA [id number] [place] [address] [place] CO2 (BldV) [Partial pressure] 52 mm[Hg] Normal 42-55 [facility] Comment on above: Order Comment: Speci men Type: VENOUS BLOOD SPECIMENOrdering Facility: [facility] Address: [address] [place] [address] Performed By: #### 2 4344-4 ####[facility] LABCLIA [id number] [place] [id number] [place] Glucose [Mass/Vol] 141 mg/dL High 60-105 [facility] Comment on above: Order Comment: Speci men Type: VENOUS BLOOD SPECIMENOrdering Facility: [facility] Address: [address] [place] [address] Performed By: #### 2 4344-4 ####[facility] LABIA [id number] [place] [address] [place] HCO3 (Bld) [Moles/Vol] 31 mmol/L High 24-28 [facility] Comment on above: Order Comment: Speci men Type: VENOUS BLOOD SPECIMENOrdering Facility: [facility] Address: [address] [place] [address] Performed By: #### 2 4344-4 ####[facility] LABIA [id number] [place] [address] [place] Hematocrit (Bld) [Volume fraction] 29.7 % Low 39.0-51.0 [facility] Comment on above: Order Comment: Speci men Type: VENOUS BLOOD SPECIMENOrdering Facility: [facility] Address: [address] [place] [address] Performed By: #### 2 4344-4 ####[facility] LABIA [id number] [place] [address] [place] Hemoglobin (Bld) [Mass/Vol] 9.6 g/dL Low 13.0-17.0 [facility] Comment on above: Order Comment: Speci men Type: VENOUS BLOOD SPECIMENOrdering Facility: [facility] Address: [address] [place] [address] Performed By: #### 2 4344-4 ####[facility] LABIA [id number] [place] [id number] [place] Methemoglobin (Bld) [Mass fraction] 1.4 % Normal 0.0-1.5 [facility] Comment on above: Order Comment: Speci men Type: VENOUS BLOOD SPECIMENOrdering Facility: [facility] Address: [address] [place], [place] [address] Performed By: #### 2 4344-4 ####[facility] LABCLIA [id number] [address] [address] [place] Oxygen (BldV) [Partial pressure] 33 mm[Hg] Low 35-45 [facility] Comment on above: Order Comment: Speci men Type: VENOUS BLOOD SPECIMENOrdering Facility: [facility] Address: [address] [place], [place] [address] Performed By: #### 2 4344-4 ####[facility] LABCLIA [id number] [address] [address] [place] Oxygen saturation in Venous blood 52 % Low 60-85 [facility] Comment on above: Order Comment: Speci men Type: VENOUS BLOOD SPECIMENOrdering Facility: [facility] Address: [address] [place], [place] [address] Performed By: #### 2 4344-4 ####[facility] LABCLIA [id number] [place] [id number] [place] Oxyhemoglobin (BldV) [Mass fraction] 51 % Low 60-85 [facility] Comment on above: Order Comment: Speci men Type: VENOUS BLOOD SPECIMENOrdering Facility: [facility] Address: [address] [place] [address] Performed By: #### 2 4344-4 ####[facility] LABIA [id number] [address] [address] [place] pH (BldV) 7.40 [pH] Normal 7.32-7.42 [facility] Comment on above: Order Comment: Speci men Type: VENOUS BLOOD SPECIMENOrdering Facility: [facility] Address: [address] [place], [place] [address] Performed By: #### 2 4344-4 ####[facility] LABCLIA [id number] [address] [address] [place] Potassium [Moles/Vol] 4.6 mmol/L Normal 3.5-5.0 [facility] Comment on above: Order Comment: Speci men Type: VENOUS BLOOD SPECIMENOrdering Facility: [facility] Address: [address] [place] [address] Performed By: #### 2 4344-4 ####[facility] LABIA [id number] [place] [address] [place] Sodium [Moles/Vol] 135 mmol/L Low 136-144 [facility] Comment on above: Order Comment: Speci men Type: VENOUS BLOOD SPECIMENOrdering Facility: [facility] Address: [address] [place] [address] Performed By: #### 2 4344-4 ####[facility] LABIA [id number] [place] [address] [place] Base excess Calc (BldV) [Moles/Vol] 4 mmol/L High 0-2 [facility] Comment on above: Order Comment: Speci men Type: VENOUS BLOOD SPECIMENOrdering Facility: [facility] Address: [address] [place] [address] Performed By: #### 2 4344-4 ####[facility] LABIA [id number] [place] [address] [place] Calcium.ionized (Bld) [Mass/Vol] 1.18 mmol/L Normal 1.08-1.30 [facility] Comment on above: Order Comment: Speci men Type: VENOUS BLOOD SPECIMENOrdering Facility: [facility] Address: [address] [place] [address] Performed By: #### 2 4344-4 ####[facility] LABIA [id number] [place] [address] [place] Calcium.ionized adjusted to pH 7.4 (BldA) [Moles/Vol] 1.15 mmol/L Normal 1.08-1.30 [facility] Comment on above: Order Comment: Speci men Type: VENOUS BLOOD SPECIMENOrdering Facility: [facility] Address: [address] [place] [address] Performed By: #### 2 4344-4 ####[facility] LABCLIA [id number] [address] [place] Carboxyhemoglobin (BldV) [Mass fraction] 1.0 % Normal 0.0-2.0 [facility] Comment on above: Order Comment: Speci men Type: VENOUS BLOOD SPECIMENOrdering Facility: [facility] Address: [address] [place] [address] Result Comment: Carb oxyhemoglobin Reference Range for Smokers: 2.0-8.0% Performed By: #### 2 4344-4 ####[facility] LABCLIA [id number] [place] [address] [place] CO2 (BldV) [Partial pressure] 55 mm[Hg] Normal 42-55 [facility] Comment on above: Order Comment: Speci men Type: VENOUS BLOOD SPECIMENOrdering Facility: [facility] Address: [address] [place] [address] Performed By: #### 2 4344-4 ####[facility] LABCLIA [id number] [address] [place] CO2 adjusted to patient's actual temperature (BldV) [Partial pressure] 54 mmHg Normal 42-55 [facility] Comment on above: Order Comment: Speci men Type: VENOUS BLOOD SPECIMENOrdering Facility: [facility] Address: [address] [place] [address] Performed By: #### 2 4344-4 ####[facility] LABCLIA [id number] [place] [id number] [place] Glucose [Mass/Vol] 180 mg/dL High 60-105 [facility] Comment on above: Order Comment: Speci men Type: VENOUS BLOOD SPECIMENOrdering Facility: [facility] Address: [address] [place] [address] Performed By: #### 2 4344-4 ####[facility] LABCLIA [id number] [address] [place] [address] [place] HCO3 (Bld) [Moles/Vol] 30 mmol/L High 24-28 [facility] Comment on above: Order Comment: Speci men Type: VENOUS BLOOD SPECIMENOrdering Facility: [facility] Address: [address] [place] [address] Performed By: #### 2 4344-4 ####[facility] LABCLIA [id number] [place] [id number] [place] Lactate [Moles/Vol] 1.5 mmol/L Normal 0.5-2.2 [facility] Comment on above: Order Comment: Speci men Type: VENOUS BLOOD SPECIMENOrdering Facility: [facility] Address: [address] [place] [address] Performed By: #### 2 4344-4 ####[facility] LABIA [id number] [place] [address] [place] Methemoglobin (Bld) [Mass fraction] 1.3 % Normal 0.0-1.5 [facility] Comment on above: Order Comment: Speci men Type: VENOUS BLOOD SPECIMENOrdering Facility: [facility] Address: [address] [place] [address] Performed By: #### 2 4344-4 ####[facility] LABIA [id number] [place] [id number] [place] Oxygen (BldV) [Partial pressure] 38 mm[Hg] Normal 35-45 [facility] Comment on above: Order Comment: Speci men Type: VENOUS BLOOD SPECIMENOrdering Facility: [facility] Address: [address] [place] [address] Performed By: #### 2 4344-4 ####[facility] LABCLIA [id number] [place] [id number] [place] Oxygen adjusted to patient's actual temperature (BldV) [Partial pressure] 37 mmHg Normal 35-45 [facility] Comment on above: Order Comment: Speci men Type: VENOUS BLOOD SPECIMENOrdering Facility: [facility] Address: [address] [place], [place] [address] Performed By: #### 2 4344-4 ####[facility] LABCLIA [id number] [address] [place] [address] [place] Oxygen saturation in Venous blood 65 % Normal 60-85 [facility] Comment on above: Order Comment: Speci men Type: VENOUS BLOOD SPECIMENOrdering Facility: [facility] Address: [address] [place] [address] Performed By: #### 2 4344-4 ####[facility] LABCLIA [id number] [address] [address] [place] Oxyhemoglobin (BldV) [Mass fraction] 64 % Normal 60-85 [facility] Comment on above: Order Comment: Speci men Type: VENOUS BLOOD SPECIMENOrdering Facility: [facility] Address: [address] [place] [address] Performed By: #### 2 4344-4 ####[facility] LABCLIA [id number] [address] [address] [place] pH (BldV) 7.35 [pH] Normal 7.32-7.42 [facility] Comment on above: Order Comment: Speci men Type: VENOUS BLOOD SPECIMENOrdering Facility: [facility] Address: [address] [place], [place] [address] Performed By: #### 2 4344-4 ####[facility] LABCLIA [id number] [address] [address] [place] pH adjusted to patient's actual temperature (BldV) 7.36 Normal 7.32-7.42 [facility] Comment on above: Order Comment: Speci men Type: VENOUS BLOOD SPECIMENOrdering Facility: [facility] Address: [address] [place], [place] [address] Performed By: #### 2 4344-4 ####[facility] LABIA [id number] [place] [id number] [place] Potassium [Moles/Vol] 4.5 mmol/L Normal 3.5-5.0 [facility] Comment on above: Order Comment: Speci men Type: VENOUS BLOOD SPECIMENOrdering Facility: [facility] Address: [address] [place] [address] Performed By: #### 2 4344-4 ####[facility] LABIA [id number] [place] [id number] [place] Sodium [Moles/Vol] 135 mmol/L Low 136-144 [facility] Comment on above: Order Comment: Speci men Type: VENOUS BLOOD SPECIMENOrdering Facility: [facility] Address: [address] [place] [address] Performed By: #### 2 4344-4 ####[facility] [id number] [place] [id number] [place] Magnesium SerPl-mCncon 10-21 Magnesium [Mass/Vol] 1.9 mg/dL Normal 1.7-2.3 [facility] Comment on above: Order Comment: Speci men Type: BLOOD SPECIMENOrdering Facility: [facility] Address: [address] [place] [address] Performed By: #### 2 4323-8, 26236-5, 2777-1 ####[facility] [id number] [place] [id number] [place] PT panel Coag (PPP)on 2024 INR Coag (PPP) [Relative time] 1.3 {INR} Normal 0.9-1.3 [facility] Comment on above: Order Comment: Speci men Type: BLOOD SPECIMENOrdering Facility: [facility] Address: [address] [place] [address] Result Comment: Nettie min K Antagonist (VKA) Therapeutic Range: INR 2 to 3 (Target INR of 2.5)Note: For patients treated with VKA drugs, such as warfarin, the [place] [employer] 2012 Guideline recommends [...] al. Chest 2012, 141:7S-47SNishimsoila RA, et al. [facility] 2017, 70: 252-289 Performed By: #### 3 4528-0 ####[facility] LABIA [id number] [place] [address] [place] PT Coag (PPP) [Time] 13.8 s High 9.7-13.0 [facility] Comment on above: Order Comment: Speci men Type: BLOOD SPECIMENOrdering Facility: [facility] Address: [address] [place] [address] Performed By: #### 3 4528-0 ####[facility] LABIA [id number] [place] [address] [place] Phosphate SerPl-mCncon 10-21 Phosphate [Mass/Vol] 3.4 mg/dL Normal 2.7-4.8 [facility] Comment on above: Order Comment: Speci men Type: BLOOD SPECIMENOrdering Facility: [facility] Address: [address] [place] [address] Performed By: #### 2 4323-8, 97065-9, 2777-1 ####[facility] LABIA [id number] [place] [address] [place] XR CHEST 1V FRONTAL PORTon 0 10-21-2024 XR CHEST 1V FRONTAL PORT Normal [facility] ARTERIAL BLOOD GASESon 10-20 Base excess Calc (Bld) [Moles/Vol] 2 mmol/L Normal 0-2 [facility] Comment on above: Order Comment: Speci men Type: ARTERIAL BLOOD SPECIMENOrdering Facility: [facility] Address: [address] [place] [address] Performed By: #### A LLBG ####[facility] LABCLIA [id number] [place] [address] [place] Calcium.ionized (Bld) [Mass/Vol] 1.17 mmol/L Normal 1.08-1.30 [facility] Comment on above: Order Comment: Speci men Type: ARTERIAL BLOOD SPECIMENOrdering Facility: [facility] Address: [address] [place] [address] Performed By: #### A LLBG ####[facility] LABCLIA [id number] [place] [address] [place] Calcium.ionized adjusted to pH 7.4 (BldA) [Moles/Vol] 1.16 mmol/L Normal 1.08-1.30 [facility] Comment on above: Order Comment: Speci men Type: ARTERIAL BLOOD SPECIMENOrdering Facility: [facility] Address: [address] [place] [address] Performed By: #### A LLBG ####[facility] LABCLIA [id number] [place] [address] [place] Carboxyhemoglobin (BldA) [Mass fraction] 1.0 % Normal 0.0-2.0 [facility] Comment on above: Order Comment: Speci men Type: ARTERIAL BLOOD SPECIMENOrdering Facility: [facility] Address: [address] [place] [address] Result Comment: Carb oxyhemoglobin Reference Range for Smokers: 2.0-8.0% Performed By: #### A LLBG ####[facility] LABCLIA [id number] [address] [place] CO2 (Bld) [Partial pressure] 46 mm Hg Normal 36-46 [facility] Comment on above: Order Comment: Speci men Type: ARTERIAL BLOOD SPECIMENOrdering Facility: [facility] Address: [address] [place] [address] Performed By: #### A LLBG ####[facility] LABCLIA [id number] [place] [address] [place] CO2 adjusted to patient's actual temperature (Bld) [Partial pressure] 46 mmHg Normal 36-46 [facility] Comment on above: Order Comment: Speci men Type: ARTERIAL BLOOD SPECIMENOrdering Facility: [facility] Address: [address] [place] [address] Performed By: #### A LLBG ####[facility] LABCLIA [id number] [place] [address] [place] Glucose [Mass/Vol] 229 mg/dL High 60-105 [facility] Comment on above: Order Comment: Speci men Type: ARTERIAL BLOOD SPECIMENOrdering Facility: [facility] Address: [address] [place] [address] Performed By: #### A LLBG ####[facility] LABCLIA [id number] [place] [address] [place] Hematocrit (Bld) [Volume fraction] 28.3 % Low 39.0-51.0 [facility] Comment on above: Order Comment: Speci men Type: ARTERIAL BLOOD SPECIMENOrdering Facility: [facility] Address: [address] [place] [address] Performed By: #### A LLBG ####[facility] LABCLIA [id number] [place] [address] [place] Hemoglobin (Bld) [Mass/Vol] 9.1 g/dL Low 13.0-17.0 [facility] Comment on above: Order Comment: Speci men Type: ARTERIAL BLOOD SPECIMENOrdering Facility: [facility] Address: [address] [place] [address] Performed By: #### A LLBG ####[facility] LABCLIA [id number] [place] [address] [place] Lactate [Moles/Vol] 2.4 mmol/L High 0.5-2.2 [facility] Comment on above: Order Comment: Speci men Type: ARTERIAL BLOOD SPECIMENOrdering Facility: [facility] Address: [address] [place] [address] Performed By: #### A LLBG ####[facility] LABCLIA [id number] [place] [address] [place] Methemoglobin (Bld) [Mass fraction] 1.1 % Normal 0.0-1.5 [facility] Comment on above: Order Comment: Speci men Type: ARTERIAL BLOOD SPECIMENOrdering Facility: [facility] Address: [address] [place] [address] Performed By: #### A LLBG ####[facility] LABCLIA [id number] [place] [id number] [place] Oxygen (Bld) [Partial pressure] 104 mm Hg High 85-95 [facility] Comment on above: Order Comment: Speci men Type: ARTERIAL BLOOD SPECIMENOrdering Facility: [facility] Address: [address] [place] [address] Performed By: #### A LLBG ####[facility] LABCLIA [id number] [place] [id number] [place] Oxygen adjusted to patient's actual temperature (Bld) [Partial pressure] 103 mmHg High 85-95 [facility] Comment on above: Order Comment: Speci men Type: ARTERIAL BLOOD SPECIMENOrdering Facility: [facility] Address: [address] [place], [place] [id number] Performed By: #### A LLBG ####[facility] LABCLIA [id number] [place] [address] [place] Oxyhemoglobin (BldA) [Mass fraction] 96 % Normal 95-98 [facility] Comment on above: Order Comment: Speci men Type: ARTERIAL BLOOD SPECIMENOrdering Facility: [facility] Address: [address] [place] [address] Performed By: #### A LLBG ####[facility] LABCLIA [id number] [place] [address] [place] pH (Bld) 7.38 [pH] Normal 7.35-7.45 [facility] Comment on above: Order Comment: Speci men Type: ARTERIAL BLOOD SPECIMENOrdering Facility: [facility] Address: [address] [place] [address] Performed By: #### A LLBG ####[facility] LABCLIA [id number] [place] [address] [place] pH adjusted to patient's actual temperature (Bld) 7.38 Normal 7.35-7.45 [facility] Comment on above: Order Comment: Speci men Type: ARTERIAL BLOOD SPECIMENOrdering Facility: [facility] Address: [address] [place], [place] [address] Performed By: #### A LLBG ####[facility] LABCLIA [id number] [place] [id number] [place] Potassium [Moles/Vol] 4.4 mmol/L Normal 3.5-5.0 [facility] Comment on above: Order Comment: Speci men Type: ARTERIAL BLOOD SPECIMENOrdering Facility: [facility] Address: [address] [place] [address] Performed By: #### A LLBG ####[facility] LABCLIA [id number] [place] [address] [place] Base excess Calc (Bld) [Moles/Vol] 2 mmol/L Normal 0-2 [facility] Comment on above: Order Comment: Speci men Type: ARTERIAL BLOOD SPECIMENOrdering Facility: [facility] Address: [address] [place] [address] Performed By: #### A LLBG ####[facility] LABCLIA [id number] [place] [address] [place] Body temperature 97.88 [degF] Normal [facility] Comment on above: Order Comment: Speci men Type: ARTERIAL BLOOD SPECIMENOrdering Facility: [facility] Address: [address] [place] [address] Performed By: #### A LLBG ####[facility] LABCLIA [id number] [place] [address] [place] Order Comment: Speci men Type: VENOUS BLOOD SPECIMENOrdering Facility: [facility] Address: [address] [place] [address] Performed By: #### 2 4344-4 ####[facility] LABCLIA [id number] [place] [address] [place] Calcium.ionized (Bld) [Mass/Vol] 1.15 mmol/L Normal 1.08-1.30 [facility] Comment on above: Order Comment: Speci men Type: ARTERIAL BLOOD SPECIMENOrdering Facility: [facility] Address: [address] [place] [address] Performed By: #### A LLBG ####[facility] LABCLIA [id number] [place] [address] [place] Calcium.ionized adjusted to pH 7.4 (BldA) [Moles/Vol] 1.16 mmol/L Normal 1.08-1.30 [facility] Comment on above: Order Comment: Speci men Type: ARTERIAL BLOOD SPECIMENOrdering Facility: [facility] Address: [address] [place] [address] Performed By: #### A LLBG ####[facility] LABCLIA [id number] [place] [address] [place] Carboxyhemoglobin (BldA) [Mass fraction] 1.0 % Normal 0.0-2.0 [facility] Comment on above: Order Comment: Speci men Type: ARTERIAL BLOOD SPECIMENOrdering Facility: [facility] Address: [address] [place] [address] Result Comment: Carb oxyhemoglobin Reference Range for Smokers: 2.0-8.0% Performed By: #### A LLBG ####[facility] LABCLIA [id number] [place] [address] [place] CO2 (Bld) [Partial pressure] 41 mm Hg Normal 36-46 [facility] Comment on above: Order Comment: Speci men Type: ARTERIAL BLOOD SPECIMENOrdering Facility: [facility] Address: [address] [place] [address] Performed By: #### A LLBG ####[facility] LABCLIA [id number] [place] [address] [place] CO2 adjusted to patient's actual temperature (Bld) [Partial pressure] 41 mmHg Normal 36-46 [facility] Comment on above: Order Comment: Speci men Type: ARTERIAL BLOOD SPECIMENOrdering Facility: [facility] Address: [address] [place] [address] Performed By: #### A LLBG ####[facility] LABCLIA [id number] [place] [address] [place] Glucose [Mass/Vol] 271 mg/dL High 60-105 [facility] Comment on above: Order Comment: Speci men Type: ARTERIAL BLOOD SPECIMENOrdering Facility: [facility] Address: [address] [place] [address] Performed By: #### A LLBG ####[facility] LABCLIA [id number] [place] [address] [place] HCO3 (Bld) [Moles/Vol] 26 mmol/L Normal 22-26 [facility] Comment on above: Order Comment: Speci men Type: ARTERIAL BLOOD SPECIMENOrdering Facility: [facility] Address: [address] [place] [address] Performed By: #### A LLBG ####[facility] LABCLIA [id number] [place] [address] [place] Hematocrit (Bld) [Volume fraction] 29.8 % Low 39.0-51.0 [facility] Comment on above: Order Comment: Speci men Type: ARTERIAL BLOOD SPECIMENOrdering Facility: [facility] Address: [address] [place] [address] Performed By: #### A LLBG ####[facility] LABCLIA [id number] [place] [address] [place] Hemoglobin (Bld) [Mass/Vol] 9.6 g/dL Low 13.0-17.0 [facility] Comment on above: Order Comment: Speci men Type: ARTERIAL BLOOD SPECIMENOrdering Facility: [facility] Address: [address] [place] [address] Performed By: #### A LLBG ####[facility] LABIA [id number] [place] [address] [place] Lactate [Moles/Vol] 1.4 mmol/L Normal 0.5-2.2 [facility] Comment on above: Order Comment: Speci men Type: ARTERIAL BLOOD SPECIMENOrdering Facility: [facility] Address: [address] [place] [address] Performed By: #### A LLBG ####[facility] LABCLIA [id number] [place] [address] [place] Methemoglobin (Bld) [Mass fraction] 1.5 % Normal 0.0-1.5 [facility] Comment on above: Order Comment: Speci men Type: ARTERIAL BLOOD SPECIMENOrdering Facility: [facility] Address: [address] [place] [address] Performed By: #### A LLBG ####[facility] LABCLIA [id number] [address] [place] [address] [place] O2 THERAPY NC = Nasal Cannula Normal [facility] Comment on above: Order Comment: Speci men Type: ARTERIAL BLOOD SPECIMENOrdering Facility: [facility] Address: [address] [place] [id number] Performed By: #### A LLBG ####[facility] LABCLIA [id number] [address] [place] [address] [place] Order Comment: Speci men Type: VENOUS BLOOD SPECIMENOrdering Facility: [facility] Address: [address] [place], [place] [address] Performed By: #### 2 4344-4 ####[facility] LABCLIA [id number] [address] [address] [place] Oxygen (Bld) [Partial pressure] 95 mm Hg Normal 85-95 [facility] Comment on above: Order Comment: Speci men Type: ARTERIAL BLOOD SPECIMENOrdering Facility: [facility] Address: [address] [place], [place] [id number] Performed By: #### A LLBG ####[facility] LABCLIA [id number] [place] [id number] [place] Oxygen adjusted to patient's actual temperature (Bld) [Partial pressure] 93 mmHg Normal 85-95 [facility] Comment on above: Order Comment: Speci men Type: ARTERIAL BLOOD SPECIMENOrdering Facility: [facility] Address: [address] [place] [id number] Performed By: #### A LLBG ####[facility] LABCLIA [id number] [address] [address] [place] Oxyhemoglobin (BldA) [Mass fraction] 97 % Normal 95-98 [facility] Comment on above: Order Comment: Speci men Type: ARTERIAL BLOOD SPECIMENOrdering Facility: [facility] Address: [address] [place] [id number] Performed By: #### A LLBG ####[facility] LABCLIA [id number] [place] [id number] [place] pH (Bld) 7.42 [pH] Normal 7.35-7.45 [facility] Comment on above: Order Comment: Speci men Type: ARTERIAL BLOOD SPECIMENOrdering Facility: [facility] Address: [address] [place] [address] Performed By: #### A LLBG ####[facility] LABCLIA [id number] [place] [address] [place] pH adjusted to patient's actual temperature (Bld) 7.42 Normal 7.35-7.45 [facility] Comment on above: Order Comment: Speci men Type: ARTERIAL BLOOD SPECIMENOrdering Facility: [facility] Address: [address] [place] [address] Performed By: #### A LLBG ####[facility] LABIA [id number] [place] [address] [place] Potassium [Moles/Vol] 4.6 mmol/L Normal 3.5-5.0 [facility] Comment on above: Order Comment: Speci men Type: ARTERIAL BLOOD SPECIMENOrdering Facility: [facility] Address: [address] [place] [address] Performed By: #### A LLBG ####[facility] LABCLIA [id number] [place] [address] [place] Sodium [Moles/Vol] 132 mmol/L Low 136-144 [facility] Comment on above: Order Comment: Speci men Type: ARTERIAL BLOOD SPECIMENOrdering Facility: [facility] Address: [address] [place] [address] Performed By: #### A LLBG ####[facility] LABCLIA [id number] [place] [id number] [place] Base excess Calc (Bld) [Moles/Vol] 3 mmol/L High 0-2 [facility] Comment on above: Order Comment: Speci men Type: ARTERIAL BLOOD SPECIMENOrdering Facility: [facility] Address: [address] [place] [address] Performed By: #### A LLBG ####[facility] LABCLIA [id number] [place] [address] [place] Calcium.ionized adjusted to pH 7.4 (BldA) [Moles/Vol] 1.15 mmol/L Normal 1.08-1.30 [facility] Comment on above: Order Comment: Speci men Type: ARTERIAL BLOOD SPECIMENOrdering Facility: [facility] Address: [address] [place] [address] Performed By: #### A LLBG ####[facility] LABCLIA [id number] [place] [address] [place] Carboxyhemoglobin (BldA) [Mass fraction] 1.1 % Normal 0.0-2.0 [facility] Comment on above: Order Comment: Speci men Type: ARTERIAL BLOOD SPECIMENOrdering Facility: [facility] Address: [address] [place] [address] Result Comment: Carb oxyhemoglobin Reference Range for Smokers: 2.0-8.0% Performed By: #### A LLBG ####[facility] LABIA [id number] [place] [address] [place] CO2 (Bld) [Partial pressure] 42 mm Hg Normal 36-46 [facility] Comment on above: Order Comment: Speci men Type: ARTERIAL BLOOD SPECIMENOrdering Facility: [facility] Address: [address] [place] [address] Performed By: #### A LLBG ####[facility] LABCLIA [id number] [place] [id number] [place] CO2 adjusted to patient's actual temperature (Bld) [Partial pressure] 41 mmHg Normal 36-46 [facility] Comment on above: Order Comment: Speci men Type: ARTERIAL BLOOD SPECIMENOrdering Facility: [facility] Address: [address] [place] [address] Performed By: #### A LLBG ####[facility] LABCLIA [id number] [place] [address] [place] Glucose [Mass/Vol] 141 mg/dL High 60-105 [facility] Comment on above: Order Comment: Speci men Type: ARTERIAL BLOOD SPECIMENOrdering Facility: [facility] Address: [address] [place] [address] Performed By: #### A LLBG ####[facility] LABCLIA [id number] [place] [address] [place] HCO3 (Bld) [Moles/Vol] 27 mmol/L High 22-26 [facility] Comment on above: Order Comment: Speci men Type: ARTERIAL BLOOD SPECIMENOrdering Facility: [facility] Address: [address] [place] [address] Performed By: #### A LLBG ####[facility] LABCLIA [id number] [place] [address] [place] Hematocrit (Bld) [Volume fraction] 28.1 % Low 39.0-51.0 [facility] Comment on above: Order Comment: Speci men Type: ARTERIAL BLOOD SPECIMENOrdering Facility: [facility] Address: [address] [place] [address] Performed By: #### A LLBG ####[facility] LABCLIA [id number] [place] [id number] [place] Hemoglobin (Bld) [Mass/Vol] 9.1 g/dL Low 13.0-17.0 [facility] Comment on above: Order Comment: Speci men Type: ARTERIAL BLOOD SPECIMENOrdering Facility: [facility] Address: [address] [place] [address] Performed By: #### A LLBG ####[facility] LABCLIA [id number] [address] [address] [place] Methemoglobin (Bld) [Mass fraction] 1.1 % Normal 0.0-1.5 [facility] Comment on above: Order Comment: Speci men Type: ARTERIAL BLOOD SPECIMENOrdering Facility: [facility] Address: [address] [place], [place] [phone] Performed By: #### A LLBG ####[facility] LABCLIA [id number] [place] [id number] [place] Oxygen (Bld) [Partial pressure] 97 mm Hg High 85-95 [facility] Comment on above: Order Comment: Speci men Type: ARTERIAL BLOOD SPECIMENOrdering Facility: [facility] Address: [address] [place] [address] Performed By: #### A LLBG ####[facility] LABCLIA [id number] [place] [id number] [place] Oxygen adjusted to patient's actual temperature (Bld) [Partial pressure] 95 mmHg Normal 85-95 [facility] Comment on above: Order Comment: Speci men Type: ARTERIAL BLOOD SPECIMENOrdering Facility: [facility] Address: [address] [place], [place] [id number] Performed By: #### A LLBG ####[facility] LABCLIA [id number] [address] [address] [place] Oxyhemoglobin (BldA) [Mass fraction] 95 % Normal 95-98 [facility] Comment on above: Order Comment: Speci men Type: ARTERIAL BLOOD SPECIMENOrdering Facility: [facility] Address: [address] [place] [address] Performed By: #### A LLBG ####[facility] LABCLIA [id number] [place] [id number] [place] pH (Bld) 7.42 [pH] Normal 7.35-7.45 [facility] Comment on above: Order Comment: Speci men Type: ARTERIAL BLOOD SPECIMENOrdering Facility: [facility] Address: [address] [place] [address] Performed By: #### A LLBG ####[facility] LABCLIA [id number] [place] [address] [place] pH adjusted to patient's actual temperature (Bld) 7.43 Normal 7.35-7.45 [facility] Comment on above: Order Comment: Speci men Type: ARTERIAL BLOOD SPECIMENOrdering Facility: [facility] Address: [address] [place] [address] Performed By: #### A LLBG ####[facility] LABCLIA [id number] [place] [address] [place] Sodium [Moles/Vol] 132 mmol/L Low 136-144 [facility] Comment on above: Order Comment: Speci men Type: ARTERIAL BLOOD SPECIMENOrdering Facility: [facility] Address: [address] [place] [address] Performed By: #### A LLBG ####[facility] LABCLIA [id number] [place] [id number] [place] Base excess Calc (Bld) [Moles/Vol] 3 mmol/L High 0-2 [facility] Comment on above: Order Comment: Speci men Type: ARTERIAL BLOOD SPECIMENOrdering Facility: [facility] Address: [address] [place] [address] Performed By: #### A LLBG ####[facility] LABCLIA [id number] [place] [id number] [place] Body temperature 98.42 [degF] Normal [facility] Comment on above: Order Comment: Speci men Type: ARTERIAL BLOOD SPECIMENOrdering Facility: [facility] Address: [address] [place] [address] Performed By: #### A LLBG ####[facility] LABCLIA [id number] [place] [id number] [place] Order Comment: Speci men Type: VENOUS BLOOD SPECIMENOrdering Facility: [facility] Address: [address] [place] [address] Performed By: #### 2 4344-4 ####[facility] LABIA [id number] [place] [address] [place] Calcium.ionized (Bld) [Mass/Vol] 1.14 mmol/L Normal 1.08-1.30 [facility] Comment on above: Order Comment: Speci men Type: ARTERIAL BLOOD SPECIMENOrdering Facility: [facility] Address: [address] [place] [address] Performed By: #### A LLBG ####[facility] [id number] [place] [address] [place] Calcium.ionized adjusted to pH 7.4 (BldA) [Moles/Vol] 1.14 mmol/L Normal 1.08-1.30 [facility] Comment on above: Order Comment: Speci men Type: ARTERIAL BLOOD SPECIMENOrdering Facility: [facility] Address: [address] [place] [address] Performed By: #### A LLBG ####[facility] LABIA [id number] [place] [address] [place] Carboxyhemoglobin (BldA) [Mass fraction] 1.7 % Normal 0.0-2.0 [facility] Comment on above: Order Comment: Speci men Type: ARTERIAL BLOOD SPECIMENOrdering Facility: [facility] Address: [address] [place] [address] Result Comment: Carb oxyhemoglobin Reference Range for Smokers: 2.0-8.0% Performed By: #### A LLBG ####[facility] LABIA [id number] [place] [address] [place] CO2 (Bld) [Partial pressure] 44 mm Hg Normal 36-46 [facility] Comment on above: Order Comment: Speci men Type: ARTERIAL BLOOD SPECIMENOrdering Facility: [facility] Address: [address] [place] [address] Performed By: #### A LLBG ####[facility] LABCLIA [id number] [place] [address] [place] CO2 adjusted to patient's actual temperature (Bld) [Partial pressure] 44 mmHg Normal 36-46 [facility] Comment on above: Order Comment: Speci men Type: ARTERIAL BLOOD SPECIMENOrdering Facility: [facility] Address: [address] [place] [address] Performed By: #### A LLBG ####[facility] LABCLIA [id number] [place] [address] [place] Glucose [Mass/Vol] 151 mg/dL High 60-105 [facility] Comment on above: Order Comment: Speci men Type: ARTERIAL BLOOD SPECIMENOrdering Facility: [facility] Address: [address] [place] [address] Performed By: #### A LLBG ####[facility] LABCLIA [id number] [place] [id number] [place] HCO3 (Bld) [Moles/Vol] 27 mmol/L High 22-26 [facility] Comment on above: Order Comment: Speci men Type: ARTERIAL BLOOD SPECIMENOrdering Facility: [facility] Address: [address] [place] [address] Performed By: #### A LLBG ####[facility] LABCLIA [id number] [place] [id number] [place] Hematocrit (Bld) [Volume fraction] 28.1 % Low 39.0-51.0 [facility] Comment on above: Order Comment: Speci men Type: ARTERIAL BLOOD SPECIMENOrdering Facility: [facility] Address: [address] [place] [address] Performed By: #### A LLBG ####[facility] LABCLIA [id number] [place] [id number] [place] Hemoglobin (Bld) [Mass/Vol] 9.1 g/dL Low 13.0-17.0 [facility] Comment on above: Order Comment: Speci men Type: ARTERIAL BLOOD SPECIMENOrdering Facility: [facility] Address: [address] [place] [address] Performed By: #### A LLBG ####[facility] LABCLIA [id number] [place] [address] [place] Lactate [Moles/Vol] 0.6 mmol/L Normal 0.5-2.2 [facility] Comment on above: Order Comment: Speci men Type: ARTERIAL BLOOD SPECIMENOrdering Facility: [facility] Address: [address] [place] [address] Performed By: #### A LLBG ####[facility] LABCLIA [id number] [address] [place] Order Comment: Speci men Type: VENOUS BLOOD SPECIMENOrdering Facility: [facility] Address: [address] [place] [address] Performed By: #### 2 4344-4 ####[facility] LABCLIA [id number] [place] [address] [place] LITERS 3 Liters/min Normal [facility] Comment on above: Order Comment: Speci men Type: ARTERIAL BLOOD SPECIMENOrdering Facility: [facility] Address: [address] [place] [address] Performed By: #### A LLBG ####[facility] LABCLIA [id number] [place] [id number] [place] Order Comment: Speci men Type: VENOUS BLOOD SPECIMENOrdering Facility: [facility] Address: [address] [place] [address] Performed By: #### 2 4344-4 ####[facility] LABCLIA [id number] [place] [id number] [place] Methemoglobin (Bld) [Mass fraction] 1.0 % Normal 0.0-1.5 [facility] Comment on above: Order Comment: Speci men Type: ARTERIAL BLOOD SPECIMENOrdering Facility: [facility] Address: [address] [place] [address] Performed By: #### A LLBG ####[facility] LABCLIA [id number] [place] [address] [place] O2 THERAPY NC = Nasal Cannula Normal [facility] Comment on above: Order Comment: Speci men Type: ARTERIAL BLOOD SPECIMENOrdering Facility: [facility] Address: [address] [place] [address] Performed By: #### A LLBG ####[facility] LABCLIA [id number] [place] [id number] [place] Order Comment: Speci men Type: VENOUS BLOOD SPECIMENOrdering Facility: [facility] Address: [address] [place] [address] Performed By: #### 2 4344-4 ####[facility] LABCLIA [id number] [place] [id number] [place] Oxygen (Bld) [Partial pressure] 103 mm Hg High 85-95 [facility] Comment on above: Order Comment: Speci men Type: ARTERIAL BLOOD SPECIMENOrdering Facility: [facility] Address: [address] [place] [address] Performed By: #### A LLBG ####[facility] LABCLIA [id number] [address] [address] [place] Oxygen adjusted to patient's actual temperature (Bld) [Partial pressure] 103 mmHg High 85-95 [facility] Comment on above: Order Comment: Speci men Type: ARTERIAL BLOOD SPECIMENOrdering Facility: [facility] Address: [address] [place], [place] [address] Performed By: #### A LLBG ####[facility] LABCLIA [id number] [address] [address] [place] Oxyhemoglobin (BldA) [Mass fraction] 96 % Normal 95-98 [facility] Comment on above: Order Comment: Speci men Type: ARTERIAL BLOOD SPECIMENOrdering Facility: [facility] Address: [address] [place] [address] Performed By: #### A LLBG ####[facility] LABCLIA [id number] [place] [id number] [place] pH (Bld) 7.41 [pH] Normal 7.35-7.45 [facility] Comment on above: Order Comment: Speci men Type: ARTERIAL BLOOD SPECIMENOrdering Facility: [facility] Address: [address] [place] [address] Performed By: #### A LLBG ####[facility] LABCLIA [id number] [place] [address] [place] pH adjusted to patient's actual temperature (Bld) 7.41 Normal 7.35-7.45 [facility] Comment on above: Order Comment: Speci men Type: ARTERIAL BLOOD SPECIMENOrdering Facility: [facility] Address: [address] [place] [address] Performed By: #### A LLBG ####[facility] LABCLIA [id number] [place] [id number] [place] Potassium [Moles/Vol] 4.4 mmol/L Normal 3.5-5.0 [facility] Comment on above: Order Comment: Speci men Type: ARTERIAL BLOOD SPECIMENOrdering Facility: [facility] Address: [address] [place], [place] [address] Performed By: #### A LLBG ####[facility] LABCLIA [id number] [place] [id number] [place] Sodium [Moles/Vol] 132 mmol/L Low 136-144 [facility] Comment on above: Order Comment: Speci men Type: ARTERIAL BLOOD SPECIMENOrdering Facility: [facility] Address: [address] [place] [address] Performed By: #### A LLBG ####[facility] LABCLIA [id number] [place] [address] [place] Base excess Calc (Bld) [Moles/Vol] 2 mmol/L Normal 0-2 [facility] Comment on above: Order Comment: Speci men Type: ARTERIAL BLOOD SPECIMENOrdering Facility: [facility] Address: [address] [place] [address] Performed By: #### A LLBG ####[facility] LABCLIA [id number] [place] [address] [place] Body temperature 98.6 [degF] Normal [facility] Comment on above: Order Comment: Speci men Type: ARTERIAL BLOOD SPECIMENOrdering Facility: [facility] Address: [address] [place] [address] Performed By: #### A LLBG ####[facility] LABCLIA [id number] [place] [address] [place] Order Comment: Speci men Type: VENOUS BLOOD SPECIMENOrdering Facility: [facility] Address: [address] [place] [address] Performed By: #### 2 4344-4 ####[facility] LABCLIA [id number] [place] [address] [place] Calcium.ionized (Bld) [Mass/Vol] 1.14 mmol/L Normal 1.08-1.30 [facility] Comment on above: Order Comment: Speci men Type: ARTERIAL BLOOD SPECIMENOrdering Facility: [facility] Address: [address] [place] [address] Performed By: #### A LLBG ####[facility] LABCLIA [id number] [place] [address] [place] Calcium.ionized adjusted to pH 7.4 (BldA) [Moles/Vol] 1.14 mmol/L Normal 1.08-1.30 [facility] Comment on above: Order Comment: Speci men Type: ARTERIAL BLOOD SPECIMENOrdering Facility: [facility] Address: [address] [place] [address] Performed By: #### A LLBG ####[facility] LABCLIA [id number] [place] [address] [place] Carboxyhemoglobin (BldA) [Mass fraction] 1.6 % Normal 0.0-2.0 [facility] Comment on above: Order Comment: Speci men Type: ARTERIAL BLOOD SPECIMENOrdering Facility: [facility] Address: [address] [place] [address] Result Comment: Carb oxyhemoglobin Reference Range for Smokers: 2.0-8.0% Performed By: #### A LLBG ####[facility] LABCLIA [id number] [place] [address] [place] CO2 (Bld) [Partial pressure] 42 mm Hg Normal 36-46 [facility] Comment on above: Order Comment: Speci men Type: ARTERIAL BLOOD SPECIMENOrdering Facility: [facility] Address: [address] [place] [address] Performed By: #### A LLBG ####[facility] LABCLIA [id number] [place] [address] [place] Glucose [Mass/Vol] 184 mg/dL High 60-105 [facility] Comment on above: Order Comment: Speci men Type: ARTERIAL BLOOD SPECIMENOrdering Facility: [facility] Address: [address] [place] [address] Performed By: #### A LLBG ####[facility] LABCLIA [id number] [place] [address] [place] HCO3 (Bld) [Moles/Vol] 26 mmol/L Normal 22-26 [facility] Comment on above: Order Comment: Speci men Type: ARTERIAL BLOOD SPECIMENOrdering Facility: [facility] Address: [address] [place] [address] Performed By: #### A LLBG ####[facility] LABCLIA [id number] [place] [address] [place] Hematocrit (Bld) [Volume fraction] 28.2 % Low 39.0-51.0 [facility] Comment on above: Order Comment: Speci men Type: ARTERIAL BLOOD SPECIMENOrdering Facility: [facility] Address: [address] [place] [address] Performed By: #### A LLBG ####[facility] LABCLIA [id number] [place] [address] [place] Hemoglobin (Bld) [Mass/Vol] 9.1 g/dL Low 13.0-17.0 [facility] Comment on above: Order Comment: Speci men Type: ARTERIAL BLOOD SPECIMENOrdering Facility: [facility] Address: [address] [place] [address] Performed By: #### A LLBG ####[facility] LABCLIA [id number] [address] Order Comment: Speci men Type: BLOOD SPECIMENOrdering Facility: [facility] Address: [address] [place] [address] Performed By: #### 5 8410-2 ####[facility] LABCLIA [id number] [place] [address] [place] Lactate [Moles/Vol] 1.3 mmol/L Normal 0.5-2.2 [facility] Comment on above: Order Comment: Speci men Type: ARTERIAL BLOOD SPECIMENOrdering Facility: [facility] Address: [address] [place] [address] Performed By: #### A LLBG ####[facility] LABCLIA [id number] [address] [place] Order Comment: Speci men Type: VENOUS BLOOD SPECIMENOrdering Facility: [facility] Address: [address] [place] [address] Performed By: #### 2 4344-4 ####[facility] LABCLIA [id number] [address] [place] [address] [place] LITERS 2 Liters/min Normal [facility] Comment on above: Order Comment: Speci men Type: ARTERIAL BLOOD SPECIMENOrdering Facility: [facility] Address: [address] [place], [place] [address] Performed By: #### A LLBG ####[facility] LABCLIA [id number] [address] [place] [address] [place] Order Comment: Speci men Type: VENOUS BLOOD SPECIMENOrdering Facility: [facility] Address: [address] [place], [place] [address] Performed By: #### 2 4344-4 ####[facility] LABCLIA [id number] [address] [place] [address] [place] Methemoglobin (Bld) [Mass fraction] 1.3 % Normal 0.0-1.5 [facility] Comment on above: Order Comment: Speci men Type: ARTERIAL BLOOD SPECIMENOrdering Facility: [facility] Address: [address] [place], [place] [address] Performed By: #### A LLBG ####[facility] LABCLIA [id number] [address] [address] [place] O2 THERAPY NC = Nasal Cannula Normal [facility] Comment on above: Order Comment: Speci men Type: ARTERIAL BLOOD SPECIMENOrdering Facility: [facility] Address: [address] [place], [place] [address] Performed By: #### A LLBG ####[facility] LABCLIA [id number] [address] [place] [address] [place] Order Comment: Speci men Type: VENOUS BLOOD SPECIMENOrdering Facility: [facility] Address: [address] [place], [place] [address] Performed By: #### 2 4344-4 ####[facility] LABCLIA [id number] [place] [address] [place] Oxygen (Bld) [Partial pressure] 112 mm Hg High 85-95 [facility] Comment on above: Order Comment: Speci men Type: ARTERIAL BLOOD SPECIMENOrdering Facility: [facility] Address: [address] [place] [address] Performed By: #### A LLBG ####[facility] LABIA [id number] [place] [address] [place] Oxyhemoglobin (BldA) [Mass fraction] 96 % Normal 95-98 [facility] Comment on above: Order Comment: Speci men Type: ARTERIAL BLOOD SPECIMENOrdering Facility: [facility] Address: [address] [place] [address] Performed By: #### A LLBG ####[facility] LABIA [id number] [place] [address] [place] pH (Bld) 7.41 [pH] Normal 7.35-7.45 [facility] Comment on above: Order Comment: Speci men Type: ARTERIAL BLOOD SPECIMENOrdering Facility: [facility] Address: [address] [place] [address] Performed By: #### A LLBG ####[facility] LABCLIA [id number] [place] [address] [place] Potassium [Moles/Vol] 4.5 mmol/L Normal 3.5-5.0 [facility] Comment on above: Order Comment: Speci men Type: ARTERIAL BLOOD SPECIMENOrdering Facility: [facility] Address: [address] [place] [address] Performed By: #### A LLBG ####[facility] LABIA [id number] [place] [id number] [place] Sodium [Moles/Vol] 132 mmol/L Low 136-144 [facility] Comment on above: Order Comment: Speci men Type: ARTERIAL BLOOD SPECIMENOrdering Facility: [facility] Address: [address] [place] [address] Performed By: #### A LLBG ####[facility] LABCLIA [id number] [place] [address] [place] Order Comment: Speci men Type: VENOUS BLOOD SPECIMENOrdering Facility: [facility] Address: [address] [place] [address] Performed By: #### 2 4344-4 ####[facility] LABCLIA [id number] [address] [place] CASE MANAGEMon 10-20-2024 CASE MANAGEM Normal [facility] CBC panel Auto (Bld)on 10-20 Erythrocyte distribution width (RBC) [Ratio] 17.2 % High 11.5-15.0 [facility] Comment on above: Order Comment: Speci men Type: BLOOD SPECIMENOrdering Facility: [facility] Address: [address] [place] [address] Performed By: #### 5 8410-2 ####[facility] LABIA [id number] [address] [place] Hematocrit (Bld) [Volume fraction] 27.9 % Low 39.0-51.0 [facility] Comment on above: Order Comment: Speci men Type: BLOOD SPECIMENOrdering Facility: [facility] Address: [address] [place] [address] Performed By: #### 5 8410-2 ####[facility] LABIA [id number] [place] [id number] [place] MCH (RBC) [Entitic mass] 32.3 pg Normal 26.0-34.0 [facility] Comment on above: Order Comment: Speci men Type: BLOOD SPECIMENOrdering Facility: [facility] Address: [address] [place], [place] [address] Performed By: #### 5 8410-2 ####[facility] LABCLIA [id number] [place] [address] [place] MCHC (RBC) [Mass/Vol] 32.6 g/dL Normal 30.5-36.0 [facility] Comment on above: Order Comment: Speci men Type: BLOOD SPECIMENOrdering Facility: [facility] Address: [address] [place] [address] Performed By: #### 5 8410-2 ####[facility] LABIA [id number] [place] [address] [place] MCV (RBC) [Entitic vol] 98.9 fL Normal 80.0-100.0 [facility] Comment on above: Order Comment: Speci men Type: BLOOD SPECIMENOrdering Facility: [facility] Address: [address] [place] [address] Performed By: #### 5 8410-2 ####[facility] LABIA [id number] [place] [address] [place] Nucleated RBC (Bld) [#/Vol] 10*3/uL Normal <0.01 [facility] Comment on above: Order Comment: Speci men Type: BLOOD SPECIMENOrdering Facility: [facility] Address: [address] [place] [address] Performed By: #### 5 8410-2 ####[facility] LABIA [id number] [place] [address] [place] Platelet mean volume (Bld) [Entitic vol] 12.0 fL Normal 9.0-12.7 [facility] Comment on above: Order Comment: Speci men Type: BLOOD SPECIMENOrdering Facility: [facility] Address: [address] [place] [address] Performed By: #### 5 8410-2 ####[facility] LABCLIA [id number] [address] [address] [place] Platelets (Bld) [#/Vol] 105 10*3/uL Low 150-400 [facility] Comment on above: Order Comment: Speci men Type: BLOOD SPECIMENOrdering Facility: [facility] Address: [address] [place] [address] Performed By: #### 5 8410-2 ####[facility] LABCLIA [id number] [place] [id number] [place] RBC (Bld) [#/Vol] 2.82 10*6/uL Low 4.20-6.00 [facility] Comment on above: Order Comment: Speci men Type: BLOOD SPECIMENOrdering Facility: [facility] Address: [address] [place] [address] Performed By: #### 5 8410-2 ####[facility] LABCLIA [id number] [place] [address] [place] WBC (Bld) [#/Vol] 4.67 10*3/uL Normal 3.70-11.00 [facility] Comment on above: Order Comment: Speci men Type: BLOOD SPECIMENOrdering Facility: [facility] Address: [address] [place] [address] Performed By: #### 5 8410-2 ####[facility] LABCLIA [id number] [place] [id number] [place] CONSULT PROGon 10-20-2024 CONSULT PROG Normal [facility] CONSULT PROG Normal [facility] Comprehensive metabolic 2000 panelon 10-20-2024 Albumin [Mass/Vol] 2.7 g/dL Low 3.9-4.9 [facility] Comment on above: Order Comment: Speci men Type: BLOOD SPECIMENOrdering Facility: [facility] Address: [address] [place] [address] Performed By: #### 2 777-1, 14959-0, 4542-7, 35341-1 ####[facility] LABCLIA [id number] [place] [id number] [place] ALP [Catalytic activity/Vol] 102 U/L Normal 38-113 [facility] Comment on above: Order Comment: Speci men Type: BLOOD SPECIMENOrdering Facility: [facility] Address: [address] [place] [address] Performed By: #### 2 777-1, 33347-1, 4541-7, 69809-6 ####[facility] LABCLIA [id number] [place] [id number] [place] ALT [Catalytic activity/Vol] 11 U/L Normal 10-54 [facility] Comment on above: Order Comment: Speci men Type: BLOOD SPECIMENOrdering Facility: [facility] Address: [address] [place] [address] Performed By: #### 2 777-1, 45741-7, 7, 03632-5 ####[facility] LABCLIA [id number] [place] [id number] [place] Anion gap [Moles/Vol] 10 mmol/L Normal 8-15 [facility] Comment on above: Order Comment: Speci men Type: BLOOD SPECIMENOrdering Facility: [facility] Address: [address] [place] [address] Performed By: #### 2 777-1, 19340-6, 7, 02393-2 ####[facility] LABCLIA [id number] [place] [id number] [place] AST [Catalytic activity/Vol] 18 U/L Normal 14-40 [facility] Comment on above: Order Comment: Speci men Type: BLOOD SPECIMENOrdering Facility: [facility] Address: [address] [place] [address] Performed By: #### 2 777-1, 95589-1, 4541-7, 05900-3 ####[facility] LABCLIA [id number] [address] [address] [place] Bilirubin [Mass/Vol] 0.2 mg/dL Normal 0.2-1.3 [facility] Comment on above: Order Comment: Speci men Type: BLOOD SPECIMENOrdering Facility: [facility] Address: [address] [place] [address] Performed By: #### 2 777-1, 14788-0, 7, 00722-5 ####[facility] LABCLIA [id number] [address] [address] [place] Calcium [Mass/Vol] 8.0 mg/dL Low 8.5-10.2 [facility] Comment on above: Order Comment: Speci men Type: BLOOD SPECIMENOrdering Facility: [facility] Address: [address] [place] [address] Performed By: #### 2 777-1, 23696-6, 7, ####[facility] LABCLIA [id number] [place] [id number] [place] Chloride [Moles/Vol] 100 mmol/L Normal 98-107 [facility] Comment on above: Order Comment: Speci men Type: BLOOD SPECIMENOrdering Facility: [facility] Address: [address] [place] [address] Performed By: #### 2 777-1, 30191-5, 4541-08, 37209-2 ####[facility] LABCLIA [id number] [address] [address] [place] CO2 [Moles/Vol] 23 mmol/L Normal 22-30 [facility] Comment on above: Order Comment: Speci men Type: BLOOD SPECIMENOrdering Facility: [facility] Address: [address] [place] [address] Performed By: #### 2 777-1, 09373-8, 7, 20806-4 ####[facility] LABCLIA [id number] [address] [address] [place] Creatinine [Mass/Vol] 1.51 mg/dL High 0.73-1.22 [facility] Comment on above: Order Comment: Speci men Type: BLOOD SPECIMENOrdering Facility: [facility] Address: [address] [place] [address] Performed By: #### 2 777-1, 90862-6, 4541-7, 11779-8 ####[facility] [id number] [address] [address] [place] eGFRcr SerPlBld CKD-EPI 2020 52 mL/min/1.73m??? Low >=60 [facility] Comment on above: Order Comment: Gini nowak Type: BLOOD SPECIMENOrdering Facility: [facility] Address: [address] [place] [address] Result Comment: Gurwinder mated Glomerular Filtration Rate [...] actual GFR. Performed By: #### 2 777-1, 97196-4, 2-7, 34437-0 ####[facility] LABIA [id number] [address] [address] [place] Glucose [Mass/Vol] 179 mg/dL High 74-99 [facility] Comment on above: Order Comment: Speci men Type: BLOOD SPECIMENOrdering Facility: [facility] Address: [address] [place] [address] Result Comment: The [place] [employer] (ADA) provides guidance for cutoff [...] Standards of Medical Care in Diabetes 2016, [place] [employer]. Diabetes Care. 2016.39(Suppl 1). Performed By: #### 2 777-1, 88675-4, 7, 80712-9 ####[facility] LABCLIA [id number] [address] [address] [place] Potassium [Moles/Vol] 4.7 mmol/L Normal 3.7-5.1 [facility] Comment on above: Order Comment: Speci men Type: BLOOD SPECIMENOrdering Facility: [facility] Address: [address] [place] [address] Performed By: #### 2 777-1, 32783-2, 4541-08, ####[facility] LABCLIA [id number] [place] [id number] [place] Protein [Mass/Vol] 5.2 g/dL Low 6.3-8.0 [facility] Comment on above: Order Comment: Speci men Type: BLOOD SPECIMENOrdering Facility: [facility] Address: [address] [place] [address] Performed By: #### 2 777-1, 74885-5, 4541-08, ####[facility] LABCLIA [id number] [place] [id number] [place] Sodium [Moles/Vol] 133 mmol/L Low 136-144 [facility] Comment on above: Order Comment: Speci men Type: BLOOD SPECIMENOrdering Facility: [facility] Address: [address] [place] [address] Performed By: #### 2 777-1, 81781-4, 7, 68212-9 ####[facility] LABCLIA [id number] [place] [address] [place] Urea nitrogen [Mass/Vol] 23 mg/dL Normal 9-24 [facility] Comment on above: Order Comment: Gini nowak Type: BLOOD SPECIMENOrdering Facility: [facility] Address: [address] [place] [address] Performed By: #### 2 777-1, 45717-1, 4542-7, 53929-2 ####[facility] [id number] [place] [address] [place] Fact Xa PPP-aCncon 5 Coagulation factor X activated act Coag Qn (PPP) 0.51 IU/mL High <0.10 [facility] Comment on above: Order Comment: Gini nowak Type: BLOOD SPECIMENOrdering Facility: [facility] Address: [address] [place] [address] Result Comment: The recommended therapeutic range for treatment of venous and arterial thrombosis with intravenous unfractionated heparin is an anti Xa activity level of 0.3 to 0.7 IU/mL. In patients with concomitant therapy with thrombolytic agents and/or platelet glycoprotein IIb/IIIa antagonists, the recommended therapeutic range is an anti Xa activity level of 0.2 to 0.5 IU/mL. Performed By: #### 3 217-7 ####[facility] [id number] [place] [address] [place] Coagulation factor X activated act Coag Qn (PPP) 0.51 IU/mL High <0.10 [facility] Comment on above: Order Comment: Gini nowak Type: BLOOD SPECIMENOrdering Facility: [facility] Address: [address] [place] [address] Result Comment: The recommended therapeutic range for treatment of venous and arterial thrombosis with intravenous unfractionated heparin is an anti Xa activity level of 0.3 to 0.7 IU/mL. In patients with concomitant therapy with thrombolytic agents and/or platelet glycoprotein IIb/IIIa antagonists, the recommended therapeutic range is an anti Xa activity level of 0.2 to 0.5 IU/mL. Performed By: #### 3 4528-0, 3217-7 ####[facility] LABCLIA [id number] [address], [place] [address] [place] Gas + CO Pnl BldVon 10-21-19 25 Body temperature 98.24 [degF] Normal [facility] Comment on above: Order Comment: Speci men Type: VENOUS BLOOD SPECIMENOrdering Facility: [facility] Address: [address] [place] [address] Performed By: #### 2 4344-4 ####[facility] LABCLIA [id number] [address], [place] [address] [place] Order Comment: Speci men Type: ARTERIAL BLOOD SPECIMENOrdering Facility: [facility] Address: [address] [place] [address] Performed By: #### A LLBG ####[facility] LABCLIA [id number] [address], [facility]95 [place] HCO3 (Bld) [Moles/Vol] 27 mmol/L High 22-26 [facility] Comment on above: Order Comment: Speci men Type: VENOUS BLOOD SPECIMENOrdering Facility: [facility] Address: [address] [place] [address] Performed By: #### 2 4344-4 ####[facility] LABCLIA [id number] [address], [facility]95 [place] Order Comment: Speci men Type: ARTERIAL BLOOD SPECIMENOrdering Facility: [facility] Address: [address] [place] [address] Performed By: #### A LLBG ####[facility] LABCLIA [id number] [place] [address] [place] LITERS 3 Liters/min Normal [facility] Comment on above: Order Comment: Speci men Type: VENOUS BLOOD SPECIMENOrdering Facility: [facility] Address: [address] [place] [address] Performed By: #### 2 4344-4 ####[facility] LABCLIA [id number] [address] [address] [place] Order Comment: Speci men Type: ARTERIAL BLOOD SPECIMENOrdering Facility: [facility] Address: [address] [place] [id number] Performed By: #### A LLBG ####[facility] LABCLIA [id number] [address] [place] [address] [place] O2 THERAPY [place] = Nasal Cannula Normal [facility] Comment on above: Order Comment: Speci men Type: VENOUS BLOOD SPECIMENOrdering Facility: [facility] Address: [address] [place] [address] Performed By: #### 2 4344-4 ####[facility] LABCLIA [id number] [place] [id number] [place] Order Comment: Speci men Type: ARTERIAL BLOOD SPECIMENOrdering Facility: [facility] Address: [address] [place], [place] [address] Performed By: #### A LLBG ####[facility] LABCLIA [id number] [place] [id number] [place] Sodium [Moles/Vol] 134 mmol/L Low 136-144 [facility] Comment on above: Order Comment: Speci men Type: VENOUS BLOOD SPECIMENOrdering Facility: [facility] Address: [address] [place] [id number] Performed By: #### 2 4344-4 ####[facility] LABCLIA [id number] [place] [id number] [place] Order Comment: Speci men Type: ARTERIAL BLOOD SPECIMENOrdering Facility: [facility] Address: [address] [place] [id number] Performed By: #### A LLBG ####[facility] LABCLIA [id number] [address] [address] [place] Body temperature 97.88 [degF] Normal [facility] Comment on above: Order Comment: Speci men Type: VENOUS BLOOD SPECIMENOrdering Facility: [facility] Address: [address] [place] [address] Performed By: #### 2 4344-4 ####[facility] LABCLIA [id number] [place] [id number] [place] Order Comment: Speci men Type: ARTERIAL BLOOD SPECIMENOrdering Facility: [facility] Address: [address] [place] [address] Performed By: #### A LLBG ####[facility] LABCLIA [id number] [place] [address] [place] Calcium.ionized (Bld) [Mass/Vol] 1.14 mmol/L Normal 1.08-1.30 [facility] Comment on above: Order Comment: Speci men Type: VENOUS BLOOD SPECIMENOrdering Facility: [facility] Address: [address] [place] [address] Performed By: #### 2 4344-4 ####[facility] LABCLIA [id number] [address] [place] Order Comment: Speci men Type: ARTERIAL BLOOD SPECIMENOrdering Facility: [facility] Address: [address] [place] [address] Performed By: #### A LLBG ####[facility] LABCLIA [id number] [place] [id number] [place] Lactate [Moles/Vol] 0.7 mmol/L Normal 0.5-2.2 [facility] Comment on above: Order Comment: Speci men Type: VENOUS BLOOD SPECIMENOrdering Facility: [facility] Address: [address] [place], [place] [address] Performed By: #### 2 4344-4 ####[facility] LABCLIA [id number] [place] [id number] [facility] [place] Order Comment: Speci men Type: ARTERIAL BLOOD SPECIMENOrdering Facility: [facility] Address: [address] [place] [address] Performed By: #### A LLBG ####[facility] LABCLIA [id number] [address] [address] [place] O2 THERAPY [place] = Nasal Cannula Normal [facility] Comment on above: Order Comment: Speci men Type: VENOUS BLOOD SPECIMENOrdering Facility: [facility] Address: [address] [place] [address] Performed By: #### 2 4344-4 ####[facility] LABCLIA [id number] [address] [place] Order Comment: Speci men Type: ARTERIAL BLOOD SPECIMENOrdering Facility: [facility] Address: [address] [place] [address] Performed By: #### A LLBG ####[facility] LABCLIA [id number] [place] [address] [place] Potassium [Moles/Vol] 4.6 mmol/L Normal 3.5-5.0 [facility] Comment on above: Order Comment: Speci men Type: VENOUS BLOOD SPECIMENOrdering Facility: [facility] Address: [address] [place] [address] Performed By: #### 2 4344-4 ####[facility] LABCLIA [id number] [place] [id number] [facility] [place] Order Comment: Speci men Type: ARTERIAL BLOOD SPECIMENOrdering Facility: [facility] Address: [address] [place] [address] Performed By: #### A LLBG ####[facility] LABCLIA [id number] [address] [address] [place] Gas and Carbon monoxide pane l (BldV)on 10-20-2024 Base excess Calc (BldV) [Moles/Vol] 1 mmol/L Normal 0-2 [facility] Comment on above: Order Comment: Speci men Type: VENOUS BLOOD SPECIMENOrdering Facility: [facility] Address: [address] [place] [address] Performed By: #### 2 4344-4 ####[facility] LABCLIA [id number] [place] [address] [place] Calcium.ionized (Bld) [Mass/Vol] 1.16 mmol/L Normal 1.08-1.30 [facility] Comment on above: Order Comment: Speci men Type: VENOUS BLOOD SPECIMENOrdering Facility: [facility] Address: [address] [place] [address] Performed By: #### 2 4344-4 ####[facility] LABCLIA [id number] [place] [address] [place] Calcium.ionized adjusted to pH 7.4 (BldA) [Moles/Vol] 1.12 mmol/L Normal 1.08-1.30 [facility] Comment on above: Order Comment: Speci men Type: VENOUS BLOOD SPECIMENOrdering Facility: [facility] Address: [address] [place] [address] Performed By: #### 2 4344-4 ####[facility] LABIA [id number] [place] [address] [place] Carboxyhemoglobin (BldV) [Mass fraction] 1.3 % Normal 0.0-2.0 [facility] Comment on above: Order Comment: Speci men Type: VENOUS BLOOD SPECIMENOrdering Facility: [facility] Address: [address] [place] [address] Result Comment: Carb oxyhemoglobin Reference Range for Smokers: 2.0-8.0% Performed By: #### 2 4344-4 ####[facility] LABCLIA [id number] [place] [address] [place] CO2 (BldV) [Partial pressure] 52 mm[Hg] Normal 42-55 [facility] Comment on above: Order Comment: Speci men Type: VENOUS BLOOD SPECIMENOrdering Facility: [facility] Address: [address] [place] [address] Performed By: #### 2 4344-4 ####[facility] LABCLIA [id number] [address] [place] [address] [place] CO2 adjusted to patient's actual temperature (BldV) [Partial pressure] 51 mmHg Normal 42-55 [facility] Comment on above: Order Comment: Speci men Type: VENOUS BLOOD SPECIMENOrdering Facility: [facility] Address: [address] [place] [address] Performed By: #### 2 4344-4 ####[facility] LABCLIA [id number] [address] [place] [address] [place] Glucose [Mass/Vol] 221 mg/dL High 60-105 [facility] Comment on above: Order Comment: Speci men Type: VENOUS BLOOD SPECIMENOrdering Facility: [facility] Address: [address] [place] [address] Performed By: #### 2 4344-4 ####[facility] LABCLIA [id number] [address] [address] [place] Hematocrit (Bld) [Volume fraction] 27.4 % Low 39.0-51.0 [facility] Comment on above: Order Comment: Speci men Type: VENOUS BLOOD SPECIMENOrdering Facility: [facility] Address: [address] [place] [address] Performed By: #### 2 4344-4 ####[facility] LABCLIA [id number] [place] [id number] [place] Hemoglobin (Bld) [Mass/Vol] 8.8 g/dL Low 13.0-17.0 [facility] Comment on above: Order Comment: Speci men Type: VENOUS BLOOD SPECIMENOrdering Facility: [facility] Address: [address] [place] [address] Performed By: #### 2 4344-4 ####[facility] LABCLIA [id number] [address] [address] [place] Lactate [Moles/Vol] 2.2 mmol/L Normal 0.5-2.2 [facility] Comment on above: Order Comment: Speci men Type: VENOUS BLOOD SPECIMENOrdering Facility: [facility] Address: [address] [place], [place] [address] Performed By: #### 2 4344-4 ####[facility] LABCLIA [id number] [place] [id number] [place] Methemoglobin (Bld) [Mass fraction] 1.6 % High 0.0-1.5 [facility] Comment on above: Order Comment: Speci men Type: VENOUS BLOOD SPECIMENOrdering Facility: [facility] Address: [address] [place], [place] [address] Performed By: #### 2 4344-4 ####[facility] LABCLIA [id number] [address] [address] [place] Oxygen (BldV) [Partial pressure] 42 mm[Hg] Normal 35-45 [facility] Comment on above: Order Comment: Speci men Type: VENOUS BLOOD SPECIMENOrdering Facility: [facility] Address: [address] [place], [place] [address] Performed By: #### 2 4344-4 ####[facility] LABCLIA [id number] [address] [address] [place] Oxygen adjusted to patient's actual temperature (BldV) [Partial pressure] 41 mmHg Normal 35-45 [facility] Comment on above: Order Comment: Speci men Type: VENOUS BLOOD SPECIMENOrdering Facility: [facility] Address: [address] [place] [address] Performed By: #### 2 4344-4 ####[facility] LABCLIA [id number] [address] [address] [place] Oxygen saturation in Venous blood 69 % Normal 60-85 [facility] Comment on above: Order Comment: Speci men Type: VENOUS BLOOD SPECIMENOrdering Facility: [facility] Address: [address] [place] [address] Performed By: #### 2 4344-4 ####[facility] LABCLIA [id number] [address] [address] [place] Oxyhemoglobin (BldV) [Mass fraction] 67 % Normal 60-85 [facility] Comment on above: Order Comment: Speci men Type: VENOUS BLOOD SPECIMENOrdering Facility: [facility] Address: [address] [place], [place] [address] Performed By: #### 2 4344-4 ####[facility] LABCLIA [id number] [place] [id number] [place] pH (BldV) 7.34 [pH] Normal 7.32-7.42 [facility] Comment on above: Order Comment: Speci men Type: VENOUS BLOOD SPECIMENOrdering Facility: [facility] Address: [address] [place], [place] [address] Performed By: #### 2 4344-4 ####[facility] LABCLIA [id number] [place] [address] [place] pH adjusted to patient's actual temperature (BldV) 7.34 Normal 7.32-7.42 [facility] Comment on above: Order Comment: Speci men Type: VENOUS BLOOD SPECIMENOrdering Facility: [facility] Address: [address] [place], [place] [address] Performed By: #### 2 4344-4 ####[facility] LABCLIA [id number] [place] [id number] [place] Potassium [Moles/Vol] 4.2 mmol/L Normal 3.5-5.0 [facility] Comment on above: Order Comment: Speci men Type: VENOUS BLOOD SPECIMENOrdering Facility: [facility] Address: [address] [place] [address] Performed By: #### 2 4344-4 ####[facility] LABIA [id number] [place] [address] [place] Base excess Calc (BldV) [Moles/Vol] 3 mmol/L High 0-2 [facility] Comment on above: Order Comment: Speci men Type: VENOUS BLOOD SPECIMENOrdering Facility: [facility] Address: [address] [place] [address] Performed By: #### 2 4344-4 ####[facility] [id number] [place] [address] [place] Calcium.ionized (Bld) [Mass/Vol] 1.14 mmol/L Normal 1.08-1.30 [facility] Comment on above: Order Comment: Speci men Type: VENOUS BLOOD SPECIMENOrdering Facility: [facility] Address: [address] [place] [address] Performed By: #### 2 4344-4 ####[facility] [id number] [place] [address] [place] Calcium.ionized adjusted to pH 7.4 (BldA) [Moles/Vol] 1.12 mmol/L Normal 1.08-1.30 [facility] Comment on above: Order Comment: Speci men Type: VENOUS BLOOD SPECIMENOrdering Facility: [facility] Address: [address] [place] [address] Performed By: #### 2 4344-4 ####[facility] [id number] [place] [address] [place] Carboxyhemoglobin (BldV) [Mass fraction] 1.0 % Normal 0.0-2.0 [facility] Comment on above: Order Comment: Speci men Type: VENOUS BLOOD SPECIMENOrdering Facility: [facility] Address: [address] [place] [address] Result Comment: Carb oxyhemoglobin Reference Range for Smokers: 2.0-8.0% Performed By: #### 2 4344-4 ####[facility] LABCLIA [id number] [address] [address] [place] CO2 (BldV) [Partial pressure] 49 mm[Hg] Normal 42-55 [facility] Comment on above: Order Comment: Speci men Type: VENOUS BLOOD SPECIMENOrdering Facility: [facility] Address: [address] [place] [address] Performed By: #### 2 4344-4 ####[facility] LABCLIA [id number] [address] [place] CO2 adjusted to patient's actual temperature (BldV) [Partial pressure] 48 mmHg Normal 42-55 [facility] Comment on above: Order Comment: Speci men Type: VENOUS BLOOD SPECIMENOrdering Facility: [facility] Address: [address] [place] [address] Performed By: #### 2 4344-4 ####[facility] LABCLIA [id number] [place] [id number] [place] Glucose [Mass/Vol] 272 mg/dL High 60-105 [facility] Comment on above: Order Comment: Speci men Type: VENOUS BLOOD SPECIMENOrdering Facility: [facility] Address: [address] [place], [place] [address] Performed By: #### 2 4344-4 ####[facility] LABCLIA [id number] [address] [address] [place] HCO3 (Bld) [Moles/Vol] 28 mmol/L Normal 24-28 [facility] Comment on above: Order Comment: Speci men Type: VENOUS BLOOD SPECIMENOrdering Facility: [facility] Address: [address] [place] [address] Performed By: #### 2 4344-4 ####[facility] LABCLIA [id number] [address] [address] [place] Hematocrit (Bld) [Volume fraction] 28.3 % Low 39.0-51.0 [facility] Comment on above: Order Comment: Speci men Type: VENOUS BLOOD SPECIMENOrdering Facility: [facility] Address: [address] [place] [address] Performed By: #### 2 4344-4 ####[facility] LABCLIA [id number] [place] [address] [place] Hemoglobin (Bld) [Mass/Vol] 9.1 g/dL Low 13.0-17.0 [facility] Comment on above: Order Comment: Speci men Type: VENOUS BLOOD SPECIMENOrdering Facility: [facility] Address: [address] [place] [address] Performed By: #### 2 4344-4 ####[facility] LABCLIA [id number] [place] [address] [place] Lactate [Moles/Vol] 1.2 mmol/L Normal 0.5-2.2 [facility] Comment on above: Order Comment: Speci men Type: VENOUS BLOOD SPECIMENOrdering Facility: [facility] Address: [address] [place] [address] Performed By: #### 2 4344-4 ####[facility] LABIA [id number] [place] [address] [place] Methemoglobin (Bld) [Mass fraction] 0.7 % Normal 0.0-1.5 [facility] Comment on above: Order Comment: Speci men Type: VENOUS BLOOD SPECIMENOrdering Facility: [facility] Address: [address] [place] [address] Performed By: #### 2 4344-4 ####[facility] LABCLIA [id number] [place] [id number] [place] Oxygen (BldV) [Partial pressure] 38 mm[Hg] Normal 35-45 [facility] Comment on above: Order Comment: Speci men Type: VENOUS BLOOD SPECIMENOrdering Facility: [facility] Address: [address] [place] [address] Performed By: #### 2 4344-4 ####[facility] LABCLIA [id number] [address] [address] [place] Oxygen adjusted to patient's actual temperature (BldV) [Partial pressure] 37 mmHg Normal 35-45 [facility] Comment on above: Order Comment: Speci men Type: VENOUS BLOOD SPECIMENOrdering Facility: [facility] Address: [address] [place], [place] [address] Performed By: #### 2 4344-4 ####[facility] LABCLIA [id number] [place] [id number] [place] Oxygen saturation in Venous blood 63 % Normal 60-85 [facility] Comment on above: Order Comment: Speci men Type: VENOUS BLOOD SPECIMENOrdering Facility: [facility] Address: [address] [place], [place] [address] Performed By: #### 2 4344-4 ####[facility] LABCLIA [id number] [place] [address] [place] Oxyhemoglobin (BldV) [Mass fraction] 62 % Normal 60-85 [facility] Comment on above: Order Comment: Speci men Type: VENOUS BLOOD SPECIMENOrdering Facility: [facility] Address: [address] [place] [address] Performed By: #### 2 4344-4 ####[facility] LABCLIA [id number] [address] [address] [place] pH (BldV) 7.38 [pH] Normal 7.32-7.42 [facility] Comment on above: Order Comment: Speci men Type: VENOUS BLOOD SPECIMENOrdering Facility: [facility] Address: [address] [place], [place] [address] Performed By: #### 2 4344-4 ####[facility] LABCLIA [id number] [place] [address] [place] pH adjusted to patient's actual temperature (BldV) 7.39 Normal 7.32-7.42 [facility] Comment on above: Order Comment: Speci men Type: VENOUS BLOOD SPECIMENOrdering Facility: [facility] Address: [address] [place] [address] Performed By: #### 2 4344-4 ####[facility] LABCLIA [id number] [place] [address] [place] Potassium [Moles/Vol] 4.5 mmol/L Normal 3.5-5.0 [facility] Comment on above: Order Comment: Speci men Type: VENOUS BLOOD SPECIMENOrdering Facility: [facility] Address: [address] [place] [address] Performed By: #### 2 4344-4 ####[facility] LABIA [id number] [place] [address] [place] Sodium [Moles/Vol] 131 mmol/L Low 136-144 [facility] Comment on above: Order Comment: Speci men Type: VENOUS BLOOD SPECIMENOrdering Facility: [facility] Address: [address] [place] [address] Performed By: #### 2 4344-4 ####[facility] LABIA [id number] [place] [address] [place] Base excess Calc (BldV) [Moles/Vol] 4 mmol/L High 0-2 [facility] Comment on above: Order Comment: Speci men Type: VENOUS BLOOD SPECIMENOrdering Facility: [facility] Address: [address] [place] [address] Performed By: #### 2 4344-4 ####[facility] LABCLIA [id number] [place] [address] [place] Calcium.ionized adjusted to pH 7.4 (BldA) [Moles/Vol] 1.13 mmol/L Normal 1.08-1.30 [facility] Comment on above: Order Comment: Speci men Type: VENOUS BLOOD SPECIMENOrdering Facility: [facility] Address: [address] [place] [address] Performed By: #### 2 4344-4 ####[facility] LABCLIA [id number] [address] [address] [place] Carboxyhemoglobin (BldV) [Mass fraction] 1.2 % Normal 0.0-2.0 [facility] Comment on above: Order Comment: Speci men Type: VENOUS BLOOD SPECIMENOrdering Facility: [facility] Address: [address] [place] [address] Result Comment: Carb oxyhemoglobin Reference Range for Smokers: 2.0-8.0% Performed By: #### 2 4344-4 ####[facility] LABCLIA [id number] [address] [address] [place] CO2 (BldV) [Partial pressure] 50 mm[Hg] Normal 42-55 [facility] Comment on above: Order Comment: Speci men Type: VENOUS BLOOD SPECIMENOrdering Facility: [facility] Address: [address] [place] [address] Performed By: #### 2 4344-4 ####[facility] LABCLIA [id number] [address] [address] [place] CO2 adjusted to patient's actual temperature (BldV) [Partial pressure] 49 mmHg Normal 42-55 [facility] Comment on above: Order Comment: Speci men Type: VENOUS BLOOD SPECIMENOrdering Facility: [facility] Address: [address] [place], [place] [address] Performed By: #### 2 4344-4 ####[facility] LABCLIA [id number] [facility] [address] [address] [place] Glucose [Mass/Vol] 161 mg/dL High 60-105 [facility] Comment on above: Order Comment: Speci men Type: VENOUS BLOOD SPECIMENOrdering Facility: [facility] Address: [address] [place] [address] Performed By: #### 2 4344-4 ####[facility] LABCLIA [id number] [place] [id number] [place] HCO3 (Bld) [Moles/Vol] 29 mmol/L High 24-28 [facility] Comment on above: Order Comment: Speci men Type: VENOUS BLOOD SPECIMENOrdering Facility: [facility] Address: [address] [place] [address] Performed By: #### 2 4344-4 ####[facility] LABCLIA [id number] [place] [address] [place] Hematocrit (Bld) [Volume fraction] 28.4 % Low 39.0-51.0 [facility] Comment on above: Order Comment: Speci men Type: VENOUS BLOOD SPECIMENOrdering Facility: [facility] Address: [address] [place] [address] Performed By: #### 2 4344-4 ####[facility] LABCLIA [id number] [place] [address] [place] Hemoglobin (Bld) [Mass/Vol] 9.2 g/dL Low 13.0-17.0 [facility] Comment on above: Order Comment: Speci men Type: VENOUS BLOOD SPECIMENOrdering Facility: [facility] Address: [address] [place] [address] Performed By: #### 2 4344-4 ####[facility] LABCLIA [id number] [place] [id number] [place] Methemoglobin (Bld) [Mass fraction] 1.9 % High 0.0-1.5 [facility] Comment on above: Order Comment: Speci men Type: VENOUS BLOOD SPECIMENOrdering Facility: [facility] Address: [address] [place], [place] [address] Performed By: #### 2 4344-4 ####[facility] LABCLIA [id number] [address] [address] [place] Oxygen (BldV) [Partial pressure] 37 mm[Hg] Normal 35-45 [facility] Comment on above: Order Comment: Speci men Type: VENOUS BLOOD SPECIMENOrdering Facility: [facility] Address: [address] [place], [place] [address] Performed By: #### 2 4344-4 ####[facility] LABCLIA [id number] [address] [address] [place] Oxygen adjusted to patient's actual temperature (BldV) [Partial pressure] 36 mmHg Normal 35-45 [facility] Comment on above: Order Comment: Speci men Type: VENOUS BLOOD SPECIMENOrdering Facility: [facility] Address: [address] [place] [address] Performed By: #### 2 4344-4 ####[facility] LABCLIA [id number] [address] [address] [place] Oxygen saturation in Venous blood 64 % Normal 60-85 [facility] Comment on above: Order Comment: Speci men Type: VENOUS BLOOD SPECIMENOrdering Facility: [facility] Address: [address] [place] [address] Performed By: #### 2 4344-4 ####[facility] LABCLIA [id number] [address] [address] [place] Oxyhemoglobin (BldV) [Mass fraction] 62 % Normal 60-85 [facility] Comment on above: Order Comment: Speci men Type: VENOUS BLOOD SPECIMENOrdering Facility: [facility] Address: [address] [place], [place] [address] Performed By: #### 2 4344-4 ####[facility] LABCLIA [id number] [address] [address] [place] pH (BldV) 7.38 [pH] Normal 7.32-7.42 [facility] Comment on above: Order Comment: Speci men Type: VENOUS BLOOD SPECIMENOrdering Facility: [facility] Address: [address] [place] [address] Performed By: #### 2 4344-4 ####[facility] LABCLIA [id number] [place] [address] [place] pH adjusted to patient's actual temperature (BldV) 7.39 Normal 7.32-7.42 [facility] Comment on above: Order Comment: Speci men Type: VENOUS BLOOD SPECIMENOrdering Facility: [facility] Address: [address] [place] [address] Performed By: #### 2 4344-4 ####[facility] LABIA [id number] [place] [address] [place] Sodium [Moles/Vol] 131 mmol/L Low 136-144 [facility] Comment on above: Order Comment: Speci men Type: VENOUS BLOOD SPECIMENOrdering Facility: [facility] Address: [address] [place] [address] Performed By: #### 2 4344-4 ####[facility] LABIA [id number] [place] [address] [place] Base excess Calc (BldV) [Moles/Vol] 3 mmol/L High 0-2 [facility] Comment on above: Order Comment: Speci men Type: VENOUS BLOOD SPECIMENOrdering Facility: [facility] Address: [address] [place] [address] Performed By: #### 2 4344-4 ####[facility] LABIA [id number] [place] [address] [place] Calcium.ionized (Bld) [Mass/Vol] 1.10 mmol/L Normal 1.08-1.30 [facility] Comment on above: Order Comment: Speci men Type: VENOUS BLOOD SPECIMENOrdering Facility: [facility] Address: [address] [place] [address] Performed By: #### 2 4344-4 ####[facility] LABCLIA [id number] [address] [address] [place] Calcium.ionized adjusted to pH 7.4 (BldA) [Moles/Vol] 1.10 mmol/L Normal 1.08-1.30 [facility] Comment on above: Order Comment: Speci men Type: VENOUS BLOOD SPECIMENOrdering Facility: [facility] Address: [address] [place] [address] Performed By: #### 2 4344-4 ####[facility] LABIA [id number] [place] [address] [place] Carboxyhemoglobin (BldV) [Mass fraction] 1.0 % Normal 0.0-2.0 [facility] Comment on above: Order Comment: Speci men Type: VENOUS BLOOD SPECIMENOrdering Facility: [facility] Address: [address] [place] [address] Result Comment: Carb oxyhemoglobin Reference Range for Smokers: 2.0-8.0% Performed By: #### 2 4344-4 ####[facility] LABIA [id number] [place] [address] [place] CO2 (BldV) [Partial pressure] 48 mm[Hg] Normal 42-55 [facility] Comment on above: Order Comment: Speci men Type: VENOUS BLOOD SPECIMENOrdering Facility: [facility] Address: [address] [place] [address] Performed By: #### 2 4344-4 ####[facility] LABCLIA [id number] [place] [id number] [place] CO2 adjusted to patient's actual temperature (BldV) [Partial pressure] 47 mmHg Normal 42-55 [facility] Comment on above: Order Comment: Speci men Type: VENOUS BLOOD SPECIMENOrdering Facility: [facility] Address: [address] [place] [address] Performed By: #### 2 4344-4 ####[facility] LABCLIA [id number] [address] [address] [place] Glucose [Mass/Vol] 161 mg/dL High 60-105 [facility] Comment on above: Order Comment: Speci men Type: VENOUS BLOOD SPECIMENOrdering Facility: [facility] Address: [address] [place] [address] Performed By: #### 2 4344-4 ####[facility] LABCLIA [id number] [place] [id number] [place] HCO3 (Bld) [Moles/Vol] 28 mmol/L Normal 24-28 [facility] Comment on above: Order Comment: Speci men Type: VENOUS BLOOD SPECIMENOrdering Facility: [facility] Address: [address] [place] [address] Performed By: #### 2 4344-4 ####[facility] LABCLIA [id number] [place] [address] [place] Hematocrit (Bld) [Volume fraction] 27.8 % Low 39.0-51.0 [facility] Comment on above: Order Comment: Speci men Type: VENOUS BLOOD SPECIMENOrdering Facility: [facility] Address: [address] [place] [address] Performed By: #### 2 4344-4 ####[facility] LABCLIA [id number] [place] [id number] [place] Hemoglobin (Bld) [Mass/Vol] 9.0 g/dL Low 13.0-17.0 [facility] Comment on above: Order Comment: Speci men Type: VENOUS BLOOD SPECIMENOrdering Facility: [facility] Address: [address] [place] [address] Performed By: #### 2 4344-4 ####[facility] LABCLIA [id number] [address] [address] [place] Methemoglobin (Bld) [Mass fraction] 1.3 % Normal 0.0-1.5 [facility] Comment on above: Order Comment: Speci men Type: VENOUS BLOOD SPECIMENOrdering Facility: [facility] Address: [address] [place] [address] Performed By: #### 2 4344-4 ####[facility] LABCLIA [id number] [address] [address] [place] Oxygen (BldV) [Partial pressure] 35 mm[Hg] Normal 35-45 [facility] Comment on above: Order Comment: Speci men Type: VENOUS BLOOD SPECIMENOrdering Facility: [facility] Address: [address] [place], [place] [address] Performed By: #### 2 4344-4 ####[facility] LABCLIA [id number] [address] [address] [place] Oxygen adjusted to patient's actual temperature (BldV) [Partial pressure] 34 mmHg Low 35-45 [facility] Comment on above: Order Comment: Speci men Type: VENOUS BLOOD SPECIMENOrdering Facility: [facility] Address: [address] [place], [place] [address] Performed By: #### 2 4344-4 ####[facility] LABCLIA [id number] [address] [address] [place] Oxygen saturation in Venous blood 59 % Low 60-85 [facility] Comment on above: Order Comment: Speci men Type: VENOUS BLOOD SPECIMENOrdering Facility: [facility] Address: [address] [place] [address] Performed By: #### 2 4344-4 ####[facility] LABCLIA [id number] [address] [address] [place] Oxyhemoglobin (BldV) [Mass fraction] 58 % Low 60-85 [facility] Comment on above: Order Comment: Speci men Type: VENOUS BLOOD SPECIMENOrdering Facility: [facility] Address: [address] [place] [address] Performed By: #### 2 4344-4 ####[facility] LABCLIA [id number] [address] [address] [place] pH (BldV) 7.39 [pH] Normal 7.32-7.42 [facility] Comment on above: Order Comment: Speci men Type: VENOUS BLOOD SPECIMENOrdering Facility: [facility] Address: [address] [place] [address] Performed By: #### 2 4344-4 ####[facility] LABIA [id number] [place] [address] [place] pH adjusted to patient's actual temperature (BldV) 7.39 Normal 7.32-7.42 [facility] Comment on above: Order Comment: Speci men Type: VENOUS BLOOD SPECIMENOrdering Facility: [facility] Address: [address] [place] [address] Performed By: #### 2 4344-4 ####[facility] LABIA [id number] [place] [address] [place] Potassium [Moles/Vol] 4.3 mmol/L Normal 3.5-5.0 [facility] Comment on above: Order Comment: Speci men Type: VENOUS BLOOD SPECIMENOrdering Facility: [facility] Address: [address] [place] [address] Performed By: #### 2 4344-4 ####[facility] LABIA [id number] [place] [id number] [place] Sodium [Moles/Vol] 131 mmol/L Low 136-144 [facility] Comment on above: Order Comment: Speci men Type: VENOUS BLOOD SPECIMENOrdering Facility: [facility] Address: [address] [place] [address] Performed By: #### 2 4344-4 ####[facility] LABIA [id number] [place] [id number] [place] Base excess Calc (BldV) [Moles/Vol] 2 mmol/L Normal 0-2 [facility] Comment on above: Order Comment: Speci men Type: VENOUS BLOOD SPECIMENOrdering Facility: [facility] Address: [address] [place] [address] Performed By: #### 2 4344-4 ####[facility] LABCLIA [id number] [place] [address] [place] Calcium.ionized (Bld) [Mass/Vol] 1.11 mmol/L Normal 1.08-1.30 [facility] Comment on above: Order Comment: Speci men Type: VENOUS BLOOD SPECIMENOrdering Facility: [facility] Address: [address] [place] [address] Performed By: #### 2 4344-4 ####[facility] LABCLIA [id number] [place] [address] [place] Calcium.ionized adjusted to pH 7.4 (BldA) [Moles/Vol] 1.07 mmol/L Low 1.08-1.30 [facility] Comment on above: Order Comment: Speci men Type: VENOUS BLOOD SPECIMENOrdering Facility: [facility] Address: [address] [place] [address] Performed By: #### 2 4344-4 ####[facility] LABIA [id number] [place] [address] [place] Carboxyhemoglobin (BldV) [Mass fraction] 1.1 % Normal 0.0-2.0 [facility] Comment on above: Order Comment: Speci men Type: VENOUS BLOOD SPECIMENOrdering Facility: [facility] Address: [address] [place] [address] Result Comment: Carb oxyhemoglobin Reference Range for Smokers: 2.0-8.0% Performed By: #### 2 4344-4 ####[facility] LABCLIA [id number] [place] [address] [place] CO2 (BldV) [Partial pressure] 51 mm[Hg] Normal 42-55 [facility] Comment on above: Order Comment: Speci men Type: VENOUS BLOOD SPECIMENOrdering Facility: [facility] Address: [address] [place] [address] Performed By: #### 2 4344-4 ####[facility] LABCLIA [id number] [address] [address] [place] Glucose [Mass/Vol] 176 mg/dL High 60-105 [facility] Comment on above: Order Comment: Speci men Type: VENOUS BLOOD SPECIMENOrdering Facility: [facility] Address: [address] [place] [address] Performed By: #### 2 4344-4 ####[facility] LABIA [id number] [place] [id number] [place] HCO3 (Bld) [Moles/Vol] 27 mmol/L Normal 24-28 [facility] Comment on above: Order Comment: Speci men Type: VENOUS BLOOD SPECIMENOrdering Facility: [facility] Address: [address] [place] [address] Performed By: #### 2 4344-4 ####[facility] LABIA [id number] [place] [address] [place] Hematocrit (Bld) [Volume fraction] 27.4 % Low 39.0-51.0 [facility] Comment on above: Order Comment: Speci men Type: VENOUS BLOOD SPECIMENOrdering Facility: [facility] Address: [address] [place] [address] Performed By: #### 2 4344-4 ####[facility] LABIA [id number] [place] [id number] [place] Hemoglobin (Bld) [Mass/Vol] 8.8 g/dL Low 13.0-17.0 [facility] Comment on above: Order Comment: Speci men Type: VENOUS BLOOD SPECIMENOrdering Facility: [facility] Address: [address] [place] [address] Performed By: #### 2 4344-4 ####[facility] LABCLIA [id number] [address] [place] [address] [place] Methemoglobin (Bld) [Mass fraction] 1.5 % Normal 0.0-1.5 [facility] Comment on above: Order Comment: Speci men Type: VENOUS BLOOD SPECIMENOrdering Facility: [facility] Address: [address] [place] [address] Performed By: #### 2 4344-4 ####[facility] LABCLIA [id number] [place] [id number] [place] Oxygen (BldV) [Partial pressure] 41 mm[Hg] Normal 35-45 [facility] Comment on above: Order Comment: Speci men Type: VENOUS BLOOD SPECIMENOrdering Facility: [facility] Address: [address] [place] [address] Performed By: #### 2 4344-4 ####[facility] LABIA [id number] [address], [facility] [place] Oxygen saturation in Venous blood 68 % Normal 60-85 [facility] Comment on above: Order Comment: Speci men Type: VENOUS BLOOD SPECIMENOrdering Facility: [facility] Address: [address] [place] [address] Performed By: #### 2 4344-4 ####[facility] LABIA [id number] [place] [id number] [place] Oxyhemoglobin (BldV) [Mass fraction] 66 % Normal 60-85 [facility] Comment on above: Order Comment: Speci men Type: VENOUS BLOOD SPECIMENOrdering Facility: [facility] Address: [address] [place], [place] [address] Performed By: #### 2 4344-4 ####[facility] LABIA [id number] [address] [place] [address] [place] pH (BldV) 7.35 [pH] Normal 7.32-7.42 [facility] Comment on above: Order Comment: Speci men Type: VENOUS BLOOD SPECIMENOrdering Facility: [facility] Address: [address] [place] [address] Performed By: #### 2 4344-4 ####[facility] LABIA [id number] [place] [address] [place] Potassium [Moles/Vol] 4.3 mmol/L Normal 3.5-5.0 [facility] Comment on above: Order Comment: Speci men Type: VENOUS BLOOD SPECIMENOrdering Facility: [facility] Address: [address] [place] [address] Performed By: #### 2 4344-4 ####[facility] LABIA [id number] [place] [address] [place] Haptoglob SerPl-mCncon 10-20 Haptoglobin [Mass/Vol] 55 mg/dL Normal 31-238 [facility] Comment on above: Order Comment: Speci men Type: BLOOD SPECIMENOrdering Facility: [facility] Address: [address] [place] [address] Performed By: #### 2 777-1, 46187-0, 4542-7, 89982-5 ####[facility] LABIA [id number] [place] [address] [place] LDH SerPl-cCncon 10-20-2024 LDH [Catalytic activity/Vol] 357 U/L High 135-225 [facility] Comment on above: Order Comment: Speci men Type: BLOOD SPECIMENOrdering Facility: [facility] Address: [address] [place] [address] Performed By: #### 2 532-0 ####[facility] LABIA [id number] [place] [id number] [place] Magnesium SerPl-mCncon 10-20 Magnesium [Mass/Vol] 2.0 mg/dL Normal 1.7-2.3 [facility] Comment on above: Order Comment: Gini nowak Type: BLOOD SPECIMENOrdering Facility: [facility] Address: [address] [place] [address] Result Comment: Resu lt rechecked. Performed By: #### 2 777-1, 84045-6, 4542-7, 56181-6 ####[facility] LABIA [id number] [place] [address] [place] NM CARDIAC AMYLOID SPECT/reexaminer n 10-20-2024 NM CARDIAC AMYLOID SPECT/CT Normal [facility] PT panel Coag (PPP)on 2024 INR Coag (PPP) [Relative time] 1.4 {INR} High 0.9-1.3 [facility] Comment on above: Order Comment: Gini nowak Type: BLOOD SPECIMENOrdering Facility: [facility] Address: [address] [place] [address] Result Comment: Nettie min K Antagonist (VKA) Therapeutic Range: INR 2 to 3 (Target INR of 2.5)Note: For patients treated with VKA drugs, such as warfarin, the [place] [employer] 2012 Guideline recommends [...] [phone] Performed By: #### 3 4528-0, 3217-7 ####[facility] LABCLIA [id number] [place] [address] [place] PT Coag (PPP) [Time] 14.4 s High 9.7-13.0 [facility] Comment on above: Order Comment: Speci men Type: BLOOD SPECIMENOrdering Facility: [facility] Address: [address] [place] [address] Performed By: #### 3 4528-0, 3217-7 ####[facility] LABCLIA [id number] [place] [address] [place] Phosphate SerPl-mCncon 10-20 Phosphate [Mass/Vol] 3.2 mg/dL Normal 2.7-4.8 [facility] Comment on above: Order Comment: Speci men Type: BLOOD SPECIMENOrdering Facility: [facility] Address: [address] [place] [address] Performed By: #### 2 777-1, 57729-7, 4542-7, 95373-5 ####[facility] LABCLIA [id number] [place] [address] [place] THERAPY NTon 10-20-2024 THERAPY NT Normal [facility] US CAROTID ARTERIES KIAH VAS LABon 10-20-2024 US CAROTID ARTERIES KIAH VAS LAB Normal [facility] US CHEST EFFUSION SURVEYon 0 10-20-2024 US CHEST EFFUSION SURVEY Normal [facility] XR CHEST 1V FRONTAL PORTon 0 10-20-2024 XR CHEST 1V FRONTAL PORT Normal [facility] ARTERIAL BLOOD GASESon 10-19 Base excess Calc (Bld) [Moles/Vol] 1 mmol/L Normal 0-2 [facility] Comment on above: Order Comment: Speci men Type: ARTERIAL BLOOD SPECIMENOrdering Facility: [facility] Address: [address] [place] [address] Performed By: #### A LLBG ####[facility] LABCLIA [id number] [place] [address] [place] Body temperature 98.96 [degF] Normal [facility] Comment on above: Order Comment: Speci men Type: ARTERIAL BLOOD SPECIMENOrdering Facility: [facility] Address: [address] [place] [address] Performed By: #### A LLBG ####[facility] LABCLIA [id number] [place] [address] [place] Order Comment: Speci men Type: VENOUS BLOOD SPECIMENOrdering Facility: [facility] Address: [address] [place] [address] Performed By: #### 2 4344-4 ####[facility] LABIA [id number] [place] [address] [place] Calcium.ionized (Bld) [Mass/Vol] 1.11 mmol/L Normal 1.08-1.30 [facility] Comment on above: Order Comment: Speci men Type: ARTERIAL BLOOD SPECIMENOrdering Facility: [facility] Address: [address] [place] [address] Performed By: #### A LLBG ####[facility] LABIA [id number] [place] [address] [place] Order Comment: Speci men Type: VENOUS BLOOD SPECIMENOrdering Facility: [facility] Address: [address] [place] [address] Performed By: #### 2 4344-4 ####[facility] LABIA [id number] [place] [address] [place] Calcium.ionized adjusted to pH 7.4 (BldA) [Moles/Vol] 1.13 mmol/L Normal 1.08-1.30 [facility] Comment on above: Order Comment: Speci men Type: ARTERIAL BLOOD SPECIMENOrdering Facility: [facility] Address: [address] [place] [address] Performed By: #### A LLBG ####[facility] LABIA [id number] [place] [id number] [place] Carboxyhemoglobin (BldA) [Mass fraction] 1.6 % Normal 0.0-2.0 [facility] Comment on above: Order Comment: Speci men Type: ARTERIAL BLOOD SPECIMENOrdering Facility: [facility] Address: [address] [place] [address] Result Comment: Carb oxyhemoglobin Reference Range for Smokers: 2.0-8.0% Performed By: #### A LLBG ####[facility] LABCLIA [id number] [place] [id number] [place] CO2 (Bld) [Partial pressure] 37 mm Hg Normal 36-46 [facility] Comment on above: Order Comment: Speci men Type: ARTERIAL BLOOD SPECIMENOrdering Facility: [facility] Address: [address] [place] [address] Performed By: #### A LLBG ####[facility] LABCLIA [id number] [place] [id number] [place] CO2 adjusted to patient's actual temperature (Bld) [Partial pressure] 38 mmHg Normal 36-46 [facility] Comment on above: Order Comment: Speci men Type: ARTERIAL BLOOD SPECIMENOrdering Facility: [facility] Address: [address] [place] [address] Performed By: #### A LLBG ####[facility] LABCLIA [id number] [place] [id number] [place] Glucose [Mass/Vol] 262 mg/dL High 60-105 [facility] Comment on above: Order Comment: Speci men Type: ARTERIAL BLOOD SPECIMENOrdering Facility: [facility] Address: [address] [place] [address] Performed By: #### A LLBG ####[facility] LABIA [id number] [place] [id number] [place] HCO3 (Bld) [Moles/Vol] 24 mmol/L Normal 22-26 [facility] Comment on above: Order Comment: Speci men Type: ARTERIAL BLOOD SPECIMENOrdering Facility: [facility] Address: [address] [place] [address] Performed By: #### A LLBG ####[facility] LABCLIA [id number] [place] [address] [place] Hematocrit (Bld) [Volume fraction] 28.3 % Low 39.0-51.0 [facility] Comment on above: Order Comment: Speci men Type: ARTERIAL BLOOD SPECIMENOrdering Facility: [facility] Address: [address] [place] [address] Performed By: #### A LLBG ####[facility] LABCLIA [id number] [place] [address] [place] Hemoglobin (Bld) [Mass/Vol] 9.1 g/dL Low 13.0-17.0 [facility] Comment on above: Order Comment: Speci men Type: ARTERIAL BLOOD SPECIMENOrdering Facility: [facility] Address: [address] [place] [address] Performed By: #### A LLBG ####[facility] LABCLIA [id number] [place] [address] [place] Lactate [Moles/Vol] 2.0 mmol/L Normal 0.5-2.2 [facility] Comment on above: Order Comment: Speci men Type: ARTERIAL BLOOD SPECIMENOrdering Facility: [facility] Address: [address] [place] [address] Performed By: #### A LLBG ####[facility] LABCLIA [id number] [place] [address] [place] LITERS 2 Liters/min Normal [facility] Comment on above: Order Comment: Speci men Type: ARTERIAL BLOOD SPECIMENOrdering Facility: [facility] Address: [address] [place] [address] Performed By: #### A LLBG ####[facility] LABCLIA [id number] [place] [id number] [place] Order Comment: Speci men Type: VENOUS BLOOD SPECIMENOrdering Facility: [facility] Address: [address] [place], [place] [address] Performed By: #### 2 4344-4 ####[facility] LABCLIA [id number] [address] [place] [address] [place] Methemoglobin (Bld) [Mass fraction] 1.6 % High 0.0-1.5 [facility] Comment on above: Order Comment: Speci men Type: ARTERIAL BLOOD SPECIMENOrdering Facility: [facility] Address: [address] [place], [place] [address] Performed By: #### A LLBG ####[facility] LABCLIA [id number] [address] [place] [address] [place] O2 THERAPY NC = Nasal Cannula Normal [facility] Comment on above: Order Comment: Speci men Type: ARTERIAL BLOOD SPECIMENOrdering Facility: [facility] Address: [address] [place] [address] Performed By: #### A LLBG ####[facility] LABCLIA [id number] [address] [place] [address] [place] Order Comment: Speci men Type: VENOUS BLOOD SPECIMENOrdering Facility: [facility] Address: [address] [place], [place] [address] Performed By: #### 2 4344-4 ####[facility] LABCLIA [id number] [address] [place] [address] [place] Oxygen (Bld) [Partial pressure] 129 mm Hg High 85-95 [facility] Comment on above: Order Comment: Speci men Type: ARTERIAL BLOOD SPECIMENOrdering Facility: [facility] Address: [address] [place], [place] [address] Performed By: #### A LLBG ####[facility] LABCLIA [id number] [address] [place] [address] [place] Oxygen adjusted to patient's actual temperature (Bld) [Partial pressure] 130 mmHg High 85-95 [facility] Comment on above: Order Comment: Speci men Type: ARTERIAL BLOOD SPECIMENOrdering Facility: [facility] Address: [address] [place] [address] Performed By: #### A LLBG ####[facility] LABCLIA [id number] [address] [address] [place] Oxyhemoglobin (BldA) [Mass fraction] 96 % Normal 95-98 [facility] Comment on above: Order Comment: Speci men Type: ARTERIAL BLOOD SPECIMENOrdering Facility: [facility] Address: [address] [place] [address] Performed By: #### A LLBG ####[facility] LABCLIA [id number] [place] [id number] [place] pH (Bld) 7.43 [pH] Normal 7.35-7.45 [facility] Comment on above: Order Comment: Speci men Type: ARTERIAL BLOOD SPECIMENOrdering Facility: [facility] Address: [address] [place] [address] Performed By: #### A LLBG ####[facility] LABCLIA [id number] [place] [address] [place] pH adjusted to patient's actual temperature (Bld) 7.43 Normal 7.35-7.45 [facility] Comment on above: Order Comment: Speci men Type: ARTERIAL BLOOD SPECIMENOrdering Facility: [facility] Address: [address] [place] [address] Performed By: #### A LLBG ####[facility] LABCLIA [id number] [place] [id number] [place] Potassium [Moles/Vol] 4.6 mmol/L Normal 3.5-5.0 [facility] Comment on above: Order Comment: Speci men Type: ARTERIAL BLOOD SPECIMENOrdering Facility: [facility] Address: [address] [place] [address] Performed By: #### A LLBG ####[facility] LABCLIA [id number] [place] [id number] [place] Sodium [Moles/Vol] 131 mmol/L Low 136-144 [facility] Comment on above: Order Comment: Speci men Type: ARTERIAL BLOOD SPECIMENOrdering Facility: [facility] Address: [address] [place] [address] Performed By: #### A LLBG ####[facility] LABCLIA [id number] [place] [address] [place] Base excess Calc (Bld) [Moles/Vol] 2 mmol/L Normal 0-2 [facility] Comment on above: Order Comment: Speci men Type: ARTERIAL BLOOD SPECIMENOrdering Facility: [facility] Address: [address] [place] [address] Performed By: #### A LLBG ####[facility] LABCLIA [id number] [place] [address] [place] Body temperature 97.16 [degF] Normal [facility] Comment on above: Order Comment: Speci men Type: ARTERIAL BLOOD SPECIMENOrdering Facility: [facility] Address: [address] [place] [address] Performed By: #### A LLBG ####[facility] LABCLIA [id number] [place] [address] [place] Order Comment: Speci men Type: VENOUS BLOOD SPECIMENOrdering Facility: [facility] Address: [address] [place] [address] Performed By: #### 2 4344-4 ####[facility] LABCLIA [id number] [place] [address] [place] Calcium.ionized (Bld) [Mass/Vol] 1.15 mmol/L Normal 1.08-1.30 [facility] Comment on above: Order Comment: Speci men Type: ARTERIAL BLOOD SPECIMENOrdering Facility: [facility] Address: [address] [place] [address] Performed By: #### A LLBG ####[facility] LABCLIA [id number] [place] [address] [place] Calcium.ionized adjusted to pH 7.4 (BldA) [Moles/Vol] 1.14 mmol/L Normal 1.08-1.30 [facility] Comment on above: Order Comment: Speci men Type: ARTERIAL BLOOD SPECIMENOrdering Facility: [facility] Address: [address] [place] [address] Performed By: #### A LLBG ####[facility] LABCLIA [id number] [place] [address] [place] Order Comment: Speci men Type: VENOUS BLOOD SPECIMENOrdering Facility: [facility] Address: [address] [place] [address] Performed By: #### 2 4344-4 ####[facility] LABIA [id number] [place] [address] [place] Carboxyhemoglobin (BldA) [Mass fraction] 1.5 % Normal 0.0-2.0 [facility] Comment on above: Order Comment: Speci men Type: ARTERIAL BLOOD SPECIMENOrdering Facility: [facility] Address: [address] [place] [address] Result Comment: Carb oxyhemoglobin Reference Range for Smokers: 2.0-8.0% Performed By: #### A LLBG ####[facility] LABCLIA [id number] [place] [address] [place] CO2 (Bld) [Partial pressure] 46 mm Hg Normal 36-46 [facility] Comment on above: Order Comment: Speci men Type: ARTERIAL BLOOD SPECIMENOrdering Facility: [facility] Address: [address] [place] [address] Performed By: #### A LLBG ####[facility] LABCLIA [id number] [place] [address] [place] CO2 adjusted to patient's actual temperature (Bld) [Partial pressure] 44 mmHg Normal 36-46 [facility] Comment on above: Order Comment: Speci men Type: ARTERIAL BLOOD SPECIMENOrdering Facility: [facility] Address: [address] [place] [address] Performed By: #### A LLBG ####[facility] LABCLIA [id number] [place] [address] [place] Glucose [Mass/Vol] 121 mg/dL High 60-105 [facility] Comment on above: Order Comment: Speci men Type: ARTERIAL BLOOD SPECIMENOrdering Facility: [facility] Address: [address] [place] [address] Performed By: #### A LLBG ####[facility] LABCLIA [id number] [place] [id number] [place] HCO3 (Bld) [Moles/Vol] 26 mmol/L Normal 22-26 [facility] Comment on above: Order Comment: Speci men Type: ARTERIAL BLOOD SPECIMENOrdering Facility: [facility] Address: [address] [place] [address] Performed By: #### A LLBG ####[facility] LABCLIA [id number] [address] [place] Hematocrit (Bld) [Volume fraction] 27.9 % Low 39.0-51.0 [facility] Comment on above: Order Comment: Speci men Type: ARTERIAL BLOOD SPECIMENOrdering Facility: [facility] Address: [address] [place] [address] Performed By: #### A LLBG ####[facility] LABCLIA [id number] [place] [id number] [place] Hemoglobin (Bld) [Mass/Vol] 9.0 g/dL Low 13.0-17.0 [facility] Comment on above: Order Comment: Speci men Type: ARTERIAL BLOOD SPECIMENOrdering Facility: [facility] Address: [address] [place] [address] Performed By: #### A LLBG ####[facility] LABCLIA [id number] [place] [address] [place] Lactate [Moles/Vol] 0.6 mmol/L Normal 0.5-2.2 [facility] Comment on above: Order Comment: Speci men Type: ARTERIAL BLOOD SPECIMENOrdering Facility: [facility] Address: [address] [place] [address] Performed By: #### A LLBG ####[facility] LABCLIA [id number] [place] [address] [place] Order Comment: Speci men Type: VENOUS BLOOD SPECIMENOrdering Facility: [facility] Address: [address] [place] [address] Performed By: #### 2 4344-4 ####[facility] LABCLIA [id number] [place] [address] [place] LITERS 2 Liters/min Normal [facility] Comment on above: Order Comment: Speci men Type: ARTERIAL BLOOD SPECIMENOrdering Facility: [facility] Address: [address] [place] [address] Performed By: #### A LLBG ####[facility] LABCLIA [id number] [place] [address] [place] Order Comment: Speci men Type: VENOUS BLOOD SPECIMENOrdering Facility: [facility] Address: [address] [place] [address] Performed By: #### 2 4344-4 ####[facility] LABCLIA [id number] [place] [id number] [place] Methemoglobin (Bld) [Mass fraction] 1.4 % Normal 0.0-1.5 [facility] Comment on above: Order Comment: Speci men Type: ARTERIAL BLOOD SPECIMENOrdering Facility: [facility] Address: [address] [place] [address] Performed By: #### A LLBG ####[facility] LABCLIA [id number] [address] [place] [address] [place] O2 THERAPY NC = Nasal Cannula Normal [facility] Comment on above: Order Comment: Speci men Type: ARTERIAL BLOOD SPECIMENOrdering Facility: [facility] Address: [address] [place] [id number] Performed By: #### A LLBG ####[facility] LABCLIA [id number] [address] [place] [address] [place] Order Comment: Speci men Type: VENOUS BLOOD SPECIMENOrdering Facility: [facility] Address: [address] [place] [id number] Performed By: #### 2 4344-4 ####[facility] LABCLIA [id number] [address] [address] [place] Oxygen (Bld) [Partial pressure] 84 mm Hg Low 85-95 [facility] Comment on above: Order Comment: Speci men Type: ARTERIAL BLOOD SPECIMENOrdering Facility: [facility] Address: [address] [place] [address] Performed By: #### A LLBG ####[facility] LABCLIA [id number] [address] [place] [address] [place] Oxygen adjusted to patient's actual temperature (Bld) [Partial pressure] 80 mmHg Low 85-95 [facility] Comment on above: Order Comment: Speci men Type: ARTERIAL BLOOD SPECIMENOrdering Facility: [facility] Address: [address] [place] [address] Performed By: #### A LLBG ####[facility] LABCLIA [id number] [address] [address] [place] Oxyhemoglobin (BldA) [Mass fraction] 93 % Low 95-98 [facility] Comment on above: Order Comment: Speci men Type: ARTERIAL BLOOD SPECIMENOrdering Facility: [facility] Address: [address] [place] [address] Performed By: #### A LLBG ####[facility] LABCLIA [id number] [place] [address] [place] pH (Bld) 7.38 [pH] Normal 7.35-7.45 [facility] Comment on above: Order Comment: Speci men Type: ARTERIAL BLOOD SPECIMENOrdering Facility: [facility] Address: [address] [place] [address] Performed By: #### A LLBG ####[facility] LABIA [id number] [place] [address] [place] pH adjusted to patient's actual temperature (Bld) 7.39 Normal 7.35-7.45 [facility] Comment on above: Order Comment: Speci men Type: ARTERIAL BLOOD SPECIMENOrdering Facility: [facility] Address: [address] [place] [address] Performed By: #### A LLBG ####[facility] LABIA [id number] [place] [address] [place] Potassium [Moles/Vol] 3.8 mmol/L Normal 3.5-5.0 [facility] Comment on above: Order Comment: Speci men Type: ARTERIAL BLOOD SPECIMENOrdering Facility: [facility] Address: [address] [place] [address] Performed By: #### A LLBG ####[facility] LABCLIA [id number] [place] [id number] [place] Sodium [Moles/Vol] 133 mmol/L Low 136-144 [facility] Comment on above: Order Comment: Speci men Type: ARTERIAL BLOOD SPECIMENOrdering Facility: [facility] Address: [address] [place] [address] Performed By: #### A LLBG ####[facility] LABCLIA [id number] [address] [place] CBC panel Auto (Bld)on 10-19 Erythrocyte distribution width (RBC) [Ratio] 17.2 % High 11.5-15.0 [facility] Comment on above: Order Comment: Speci men Type: BLOOD SPECIMENOrdering Facility: [facility] Address: [address] [place] [address] Performed By: #### 5 8410-2 ####[facility] LABIA [id number] [address] [place] Hematocrit (Bld) [Volume fraction] 28.0 % Low 39.0-51.0 [facility] Comment on above: Order Comment: Speci men Type: BLOOD SPECIMENOrdering Facility: [facility] Address: [address] [place] [address] Performed By: #### 5 8410-2 ####[facility] LABIA [id number] [address] Hemoglobin (Bld) [Mass/Vol] 8.8 g/dL Low 13.0-17.0 [facility] Comment on above: Order Comment: Speci men Type: BLOOD SPECIMENOrdering Facility: [facility] Address: [address] [place] [address] Performed By: #### 5 8410-2 ####[facility] LABIA [id number] [place] [address] [place] MCH (RBC) [Entitic mass] 32.0 pg Normal 26.0-34.0 [facility] Comment on above: Order Comment: Speci men Type: BLOOD SPECIMENOrdering Facility: [facility] Address: [address] [place] [address] Performed By: #### 5 8410-2 ####[facility] LABCLIA [id number] [place] [id number] [place] MCHC (RBC) [Mass/Vol] 31.4 g/dL Normal 30.5-36.0 [facility] Comment on above: Order Comment: Speci men Type: BLOOD SPECIMENOrdering Facility: [facility] Address: [address] [place] [address] Performed By: #### 5 8410-2 ####[facility] LABIA [id number] [address] [address] [place] MCV (RBC) [Entitic vol] 101.8 fL High 80.0-100.0 [facility] Comment on above: Order Comment: Speci men Type: BLOOD SPECIMENOrdering Facility: [facility] Address: [address] [place] [address] Performed By: #### 5 8410-2 ####[facility] LABIA [id number] [place] [address] [place] Nucleated RBC (Bld) [#/Vol] 10*3/uL Normal <0.01 [facility] Comment on above: Order Comment: Speci men Type: BLOOD SPECIMENOrdering Facility: [facility] Address: [address] [place] [address] Performed By: #### 5 8410-2 ####[facility] [id number] [place] [address] [place] Platelet mean volume (Bld) [Entitic vol] 12.3 fL Normal 9.0-12.7 [facility] Comment on above: Order Comment: Speci men Type: BLOOD SPECIMENOrdering Facility: [facility] Address: [address] [place] [address] Performed By: #### 5 8410-2 ####[facility] LABIA [id number] [place] [address] [place] Platelets (Bld) [#/Vol] 118 10*3/uL Low 150-400 [facility] Comment on above: Order Comment: Speci men Type: BLOOD SPECIMENOrdering Facility: [facility] Address: [address] [place] [address] Performed By: #### 5 8410-2 ####[facility] LABCLIA [id number] [place] [id number] [place] RBC (Bld) [#/Vol] 2.75 10*6/uL Low 4.20-6.00 [facility] Comment on above: Order Comment: Speci men Type: BLOOD SPECIMENOrdering Facility: [facility] Address: [address] [place] [address] Performed By: #### 5 8410-2 ####[facility] LABIA [id number] [place] [address] [place] WBC (Bld) [#/Vol] 5.03 10*3/uL Normal 3.70-11.00 [facility] Comment on above: Order Comment: Speci men Type: BLOOD SPECIMENOrdering Facility: [facility] Address: [address] [place] [address] Performed By: #### 5 8410-2 ####[facility] [id number] [place] [id number] [place] CONSULTon 10-19-2024 CONSULT Normal [facility] CONSULT Normal [facility] Comprehensive metabolic 2000 panelon 10-19-2024 Albumin [Mass/Vol] 2.6 g/dL Low 3.9-4.9 [facility] Comment on above: Order Comment: Speci men Type: BLOOD SPECIMENOrdering Facility: [facility] Address: [address] [place] [address] Performed By: #### 2 4323-8, 83063-6, 2777-1 ####[facility] LABIA [id number] [place] [id number] [place] ALP [Catalytic activity/Vol] 102 U/L Normal 38-113 [facility] Comment on above: Order Comment: Speci men Type: BLOOD SPECIMENOrdering Facility: [facility] Address: [address] [place] [address] Performed By: #### 2 4323-8, 79887-3, 2776-02 ####[facility] LABCLIA [id number] [address] [address] [place] ALT [Catalytic activity/Vol] 12 U/L Normal 10-54 [facility] Comment on above: Order Comment: Speci men Type: BLOOD SPECIMENOrdering Facility: [facility] Address: [address] [place] [address] Performed By: #### 2 4323-8, , 2776-02 ####[facility] LABCLIA [id number] [place] [id number] [place] Anion gap [Moles/Vol] 11 mmol/L Normal 8-15 [facility] Comment on above: Order Comment: Speci men Type: BLOOD SPECIMENOrdering Facility: [facility] Address: [address] [place] [address] Performed By: #### 2 4323-8, , 2776-02 ####[facility] LABCLIA [id number] [place] [id number] [place] AST [Catalytic activity/Vol] 19 U/L Normal 14-40 [facility] Comment on above: Order Comment: Speci men Type: BLOOD SPECIMENOrdering Facility: [facility] Address: [address] [place], [place] [address] Performed By: #### 2 4323-8, , 2776-02 ####[facility] LABCLIA [id number] [address] [address] [place] Bilirubin [Mass/Vol] 0.2 mg/dL Normal 0.2-1.3 [facility] Comment on above: Order Comment: Speci men Type: BLOOD SPECIMENOrdering Facility: [facility] Address: [address] [place], [place] [address] Performed By: #### 2 4323-8, , 2776-02 ####[facility] LABCLIA [id number] [address] [address] [place] Calcium [Mass/Vol] 8.0 mg/dL Low 8.5-10.2 [facility] Comment on above: Order Comment: Speci men Type: BLOOD SPECIMENOrdering Facility: [facility] Address: [address] [place], [place] [address] Performed By: #### 2 4323-8, , 2776-02 ####[facility] LABCLIA [id number] [address] [address] [place] Chloride [Moles/Vol] 102 mmol/L Normal 98-107 [facility] Comment on above: Order Comment: Speci men Type: BLOOD SPECIMENOrdering Facility: [facility] Address: [address] [place], [place] [address] Performed By: #### 2 4323-8, , 2776-02 ####[facility] LABCLIA [id number] [address] [address] [place] CO2 [Moles/Vol] 23 mmol/L Normal 22-30 [facility] Comment on above: Order Comment: Speci men Type: BLOOD SPECIMENOrdering Facility: [facility] Address: [address] [place] [address] Performed By: #### 2 4323-8, , 2776-02 ####[facility] LABCLIA [id number] [facility] [address] [address] [place] Creatinine [Mass/Vol] 1.75 mg/dL High 0.73-1.22 [facility] Comment on above: Order Comment: Speci men Type: BLOOD SPECIMENOrdering Facility: [facility] Address: [address] [place] [address] Performed By: #### 2 4323-8, , 2776-02 ####[facility] LABCLIA [id number] [address] [address] [place] eGFRcr SerPlBld CKD-EPI 2020 43 mL/min/1.73m??? Low >=60 [facility] Comment on above: Order Comment: Gini nowak Type: BLOOD SPECIMENOrdering Facility: [facility] Address: [address] [place] [address] Result Comment: Gurwinder mated Glomerular Filtration Rate [...] actual GFR. Performed By: #### 2 4323-8, 72097-0, 2777- ####[facility] LABCLIA [id number] [place] [id number] [place] Glucose [Mass/Vol] 208 mg/dL High 74-99 [facility] Comment on above: Order Comment: Gini nowak Type: BLOOD SPECIMENOrdering Facility: [facility] Address: [address] [place] [address] Result Comment: The [place] [employer] Association (ADA) provides guidance for cutoff [...] Standards of Medical Care in Diabetes 2016, [place] [employer]. Diabetes Care. 2016.39(Suppl 1). Performed By: #### 2 4323-8, 41160-9, 2777-1 ####[facility] LABCLIA [id number] [address] [address] [place] Potassium [Moles/Vol] 4.1 mmol/L Normal 3.7-5.1 [facility] Comment on above: Order Comment: Speci men Type: BLOOD SPECIMENOrdering Facility: [facility] Address: [address] [place] [address] Performed By: #### 2 4323-8, 99555-7, 2776-1 ####[facility] LABCLIA [id number] [place] [address] [place] Protein [Mass/Vol] 4.9 g/dL Low 6.3-8.0 [facility] Comment on above: Order Comment: Speci men Type: BLOOD SPECIMENOrdering Facility: [facility] Address: [address] [place] [address] Performed By: #### 2 4323-8, , 2776- ####[facility] LABCLIA [id number] [place] [address] [place] Sodium [Moles/Vol] 136 mmol/L Normal 136-144 [facility] Comment on above: Order Comment: Speci men Type: BLOOD SPECIMENOrdering Facility: [facility] Address: [address] [place] [address] Performed By: #### 2 4323-8, , 2776- ####[facility] LABCLIA [id number] [place] [address] [place] Urea nitrogen [Mass/Vol] 22 mg/dL Normal 9-24 [facility] Comment on above: Order Comment: Speci men Type: BLOOD SPECIMENOrdering Facility: [facility] Address: [address] [place] [address] Performed By: #### 2 4323-8, 47044-5, 2776- ####[facility] LABCLIA [id number] [place] [id number] [place] Fact Xa PPP-aCncon 5 Coagulation factor X activated act Coag Qn (PPP) 0.74 IU/mL High <0.10 [facility] Comment on above: Order Comment: Gini nowak Type: BLOOD SPECIMENOrdering Facility: [facility] Address: [address] [place] [address] Result Comment: The recommended therapeutic range for treatment of venous and arterial thrombosis with intravenous unfractionated heparin is an anti Xa activity level of 0.3 to 0.7 IU/mL. In patients with concomitant therapy with thrombolytic agents and/or platelet glycoprotein IIb/IIIa antagonists, the recommended therapeutic range is an anti Xa activity level of 0.2 to 0.5 IU/mL. Performed By: #### 3 217-7, 62238-1 ####[facility] [id number] [place] [address] [place] Gas and Carbon monoxide pane l (BldV)on 10-19-2024 Base excess Calc (BldV) [Moles/Vol] 1 mmol/L Normal 0-2 [facility] Comment on above: Order Comment: Gini nowak Type: VENOUS BLOOD SPECIMENOrdering Facility: [facility] Address: [address] [place] [address] Performed By: #### 2 4344-4 ####[facility] [id number] [place] [address] [place] Calcium.ionized adjusted to pH 7.4 (BldA) [Moles/Vol] 1.09 mmol/L Normal 1.08-1.30 [facility] Comment on above: Order Comment: Gini nowak Type: VENOUS BLOOD SPECIMENOrdering Facility: [facility] Address: [address] [place] [address] Performed By: #### 2 4344-4 ####[facility] [id number] [place] [address] [place] Carboxyhemoglobin (BldV) [Mass fraction] 1.4 % Normal 0.0-2.0 [facility] Comment on above: Order Comment: Corbyi men Type: VENOUS BLOOD SPECIMENOrdering Facility: [facility] Address: [address] [place] [address] Result Comment: Carb oxyhemoglobin Reference Range for Smokers: 2.0-8.0% Performed By: #### 2 4344-4 ####[facility] LABCLIA [id number] [address] [address] [place] CO2 (BldV) [Partial pressure] 47 mm[Hg] Normal 42-55 [facility] Comment on above: Order Comment: Speci men Type: VENOUS BLOOD SPECIMENOrdering Facility: [facility] Address: [address] [place] [address] Performed By: #### 2 4344-4 ####[facility] LABCLIA [id number] [place] [address] [place] CO2 adjusted to patient's actual temperature (BldV) [Partial pressure] 48 mmHg Normal 42-55 [facility] Comment on above: Order Comment: Speci men Type: VENOUS BLOOD SPECIMENOrdering Facility: [facility] Address: [address] [place] [address] Performed By: #### 2 4344-4 ####[facility] LABCLIA [id number] [place] [address] [place] Glucose [Mass/Vol] 251 mg/dL High 60-105 [facility] Comment on above: Order Comment: Speci men Type: VENOUS BLOOD SPECIMENOrdering Facility: [facility] Address: [address] [place] [address] Performed By: #### 2 4344-4 ####[facility] LABCLIA [id number] [place] [id number] [place] HCO3 (Bld) [Moles/Vol] 26 mmol/L Normal 24-28 [facility] Comment on above: Order Comment: Speci men Type: VENOUS BLOOD SPECIMENOrdering Facility: [facility] Address: [address] [place] [address] Performed By: #### 2 4344-4 ####[facility] LABIA [id number] [place] [address] [place] Hematocrit (Bld) [Volume fraction] 27.7 % Low 39.0-51.0 [facility] Comment on above: Order Comment: Speci men Type: VENOUS BLOOD SPECIMENOrdering Facility: [facility] Address: [address] [place] [address] Performed By: #### 2 4344-4 ####[facility] LABIA [id number] [place] [address] [place] Hemoglobin (Bld) [Mass/Vol] 8.9 g/dL Low 13.0-17.0 [facility] Comment on above: Order Comment: Speci men Type: VENOUS BLOOD SPECIMENOrdering Facility: [facility] Address: [address] [place] [address] Performed By: #### 2 4344-4 ####[facility] LABIA [id number] [place] [address] [place] Lactate [Moles/Vol] 1.8 mmol/L Normal 0.5-2.2 [facility] Comment on above: Order Comment: Speci men Type: VENOUS BLOOD SPECIMENOrdering Facility: [facility] Address: [address] [place] [address] Performed By: #### 2 4344-4 ####[facility] LABIA [id number] [place] [address] [place] Methemoglobin (Bld) [Mass fraction] 1.5 % Normal 0.0-1.5 [facility] Comment on above: Order Comment: Speci men Type: VENOUS BLOOD SPECIMENOrdering Facility: [facility] Address: [address] [place] [address] Performed By: #### 2 4344-4 ####[facility] LABIA [id number] [id number] [address] [place] Oxygen (BldV) [Partial pressure] 39 mm[Hg] Normal 35-45 [facility] Comment on above: Order Comment: Speci men Type: VENOUS BLOOD SPECIMENOrdering Facility: [facility] Address: [address] [place] [address] Performed By: #### 2 4344-4 ####[facility] LABCLIA [id number] [place] [id number] [place] Oxygen adjusted to patient's actual temperature (BldV) [Partial pressure] 39 mmHg Normal 35-45 [facility] Comment on above: Order Comment: Speci men Type: VENOUS BLOOD SPECIMENOrdering Facility: [facility] Address: [address] [place] [address] Performed By: #### 2 4344-4 ####[facility] LABCLIA [id number] [place] [address] [place] Oxygen saturation in Venous blood 68 % Normal 60-85 [facility] Comment on above: Order Comment: Speci men Type: VENOUS BLOOD SPECIMENOrdering Facility: [facility] Address: [address] [place] [address] Performed By: #### 2 4344-4 ####[facility] LABCLIA [id number] [place] [address] [place] Oxyhemoglobin (BldV) [Mass fraction] 66 % Normal 60-85 [facility] Comment on above: Order Comment: Speci men Type: VENOUS BLOOD SPECIMENOrdering Facility: [facility] Address: [address] [place] [address] Performed By: #### 2 4344-4 ####[facility] LABCLIA [id number] [place] [id number] [place] pH (BldV) 7.36 [pH] Normal 7.32-7.42 [facility] Comment on above: Order Comment: Speci men Type: VENOUS BLOOD SPECIMENOrdering Facility: [facility] Address: [address] [place] [address] Performed By: #### 2 4344-4 ####[facility] LABCLIA [id number] [place] [address] [place] pH adjusted to patient's actual temperature (BldV) 7.36 Normal 7.32-7.42 [facility] Comment on above: Order Comment: Speci men Type: VENOUS BLOOD SPECIMENOrdering Facility: [facility] Address: [address] [place] [address] Performed By: #### 2 4344-4 ####[facility] LABCLIA [id number] [place] [address] [place] Potassium [Moles/Vol] 4.5 mmol/L Normal 3.5-5.0 [facility] Comment on above: Order Comment: Speci men Type: VENOUS BLOOD SPECIMENOrdering Facility: [facility] Address: [address] [place] [address] Performed By: #### 2 4344-4 ####[facility] LABCLIA [id number] [place] [address] [place] Sodium [Moles/Vol] 132 mmol/L Low 136-144 [facility] Comment on above: Order Comment: Speci men Type: VENOUS BLOOD SPECIMENOrdering Facility: [facility] Address: [address] [place], [place] [address] Performed By: #### 2 4344-4 ####[facility] LABCLIA [id number] [place] [id number] [place] Base excess Calc (BldV) [Moles/Vol] 3 mmol/L High 0-2 [facility] Comment on above: Order Comment: Speci men Type: VENOUS BLOOD SPECIMENOrdering Facility: [facility] Address: [address] [place], [place] [address] Performed By: #### 2 4344-4 ####[facility] LABCLIA [id number] [place] [id number] [place] Body temperature 97.52 [degF] Normal [facility] Comment on above: Order Comment: Speci men Type: VENOUS BLOOD SPECIMENOrdering Facility: [facility] Address: [address] [place] [address] Performed By: #### 2 4344-4 ####[facility] LABCLIA [id number] [place] [address] [place] Calcium.ionized (Bld) [Mass/Vol] 1.13 mmol/L Normal 1.08-1.30 [facility] Comment on above: Order Comment: Speci men Type: VENOUS BLOOD SPECIMENOrdering Facility: [facility] Address: [address] [place] [address] Performed By: #### 2 4344-4 ####[facility] LABIA [id number] [place] [address] [place] Calcium.ionized adjusted to pH 7.4 (BldA) [Moles/Vol] 1.12 mmol/L Normal 1.08-1.30 [facility] Comment on above: Order Comment: Speci men Type: VENOUS BLOOD SPECIMENOrdering Facility: [facility] Address: [address] [place] [address] Performed By: #### 2 4344-4 ####[facility] LABIA [id number] [place] [address] [place] Carboxyhemoglobin (BldV) [Mass fraction] 1.2 % Normal 0.0-2.0 [facility] Comment on above: Order Comment: Speci men Type: VENOUS BLOOD SPECIMENOrdering Facility: [facility] Address: [address] [place] [address] Result Comment: Carb oxyhemoglobin Reference Range for Smokers: 2.0-8.0% Performed By: #### 2 4344-4 ####[facility] LABCLIA [id number] [place] [address] [place] CO2 (BldV) [Partial pressure] 49 mm[Hg] Normal 42-55 [facility] Comment on above: Order Comment: Speci men Type: VENOUS BLOOD SPECIMENOrdering Facility: [facility] Address: [address] [place] [address] Performed By: #### 2 4344-4 ####[facility] LABCLIA [id number] [facility]ENT[facility] [address] [place] [address] [place] CO2 adjusted to patient's actual temperature (BldV) [Partial pressure] 47 mmHg Normal 42-55 [facility] Comment on above: Order Comment: Speci men Type: VENOUS BLOOD SPECIMENOrdering Facility: [facility] Address: [address] [place] [address] Performed By: #### 2 4344-4 ####[facility] LABCLIA [id number] [address] [address] [place] Glucose [Mass/Vol] 226 mg/dL High 60-105 [facility] Comment on above: Order Comment: Speci men Type: VENOUS BLOOD SPECIMENOrdering Facility: [facility] Address: [address] [place], [place] [address] Performed By: #### 2 4344-4 ####[facility] LABCLIA [id number] [address] [address] [place] HCO3 (Bld) [Moles/Vol] 28 mmol/L Normal 24-28 [facility] Comment on above: Order Comment: Speci men Type: VENOUS BLOOD SPECIMENOrdering Facility: [facility] Address: [address] [place] [address] Performed By: #### 2 4344-4 ####[facility] LABCLIA [id number] [address] [address] [place] Hematocrit (Bld) [Volume fraction] 29.0 % Low 39.0-51.0 [facility] Comment on above: Order Comment: Speci men Type: VENOUS BLOOD SPECIMENOrdering Facility: [facility] Address: [address] [place] [address] Performed By: #### 2 4344-4 ####[facility] LABCLIA [id number] [place] [address] [place] Hemoglobin (Bld) [Mass/Vol] 9.3 g/dL Low 13.0-17.0 [facility] Comment on above: Order Comment: Speci men Type: VENOUS BLOOD SPECIMENOrdering Facility: [facility] Address: [address] [place] [address] Performed By: #### 2 4344-4 ####[facility] LABCLIA [id number] [place] [address] [place] Lactate [Moles/Vol] 1.7 mmol/L Normal 0.5-2.2 [facility] Comment on above: Order Comment: Speci men Type: VENOUS BLOOD SPECIMENOrdering Facility: [facility] Address: [address] [place] [address] Performed By: #### 2 4344-4 ####[facility] LABCLIA [id number] [place] [address] [place] LITERS 2 Liters/min Normal [facility] Comment on above: Order Comment: Speci men Type: VENOUS BLOOD SPECIMENOrdering Facility: [facility] Address: [address] [place] [address] Performed By: #### 2 4344-4 ####[facility] LABCLIA [id number] [place] [id number] [place] Methemoglobin (Bld) [Mass fraction] 1.7 % High 0.0-1.5 [facility] Comment on above: Order Comment: Speci men Type: VENOUS BLOOD SPECIMENOrdering Facility: [facility] Address: [address] [place], [place] [address] Performed By: #### 2 4344-4 ####[facility] LABCLIA [id number] [id number], [place] [address] [place] O2 THERAPY NC = Nasal Cannula Normal [facility] Comment on above: Order Comment: Speci men Type: VENOUS BLOOD SPECIMENOrdering Facility: [facility] Address: [address] [place] [address] Performed By: #### 2 4344-4 ####[facility] LABCLIA [id number] [address] [place] [address] [place] Oxygen (BldV) [Partial pressure] 31 mm[Hg] Low 35-45 [facility] Comment on above: Order Comment: Speci men Type: VENOUS BLOOD SPECIMENOrdering Facility: [facility] Address: [address] [place] [address] Performed By: #### 2 4344-4 ####[facility] LABCLIA [id number] [address] [place] [address] [place] Oxygen adjusted to patient's actual temperature (BldV) [Partial pressure] 30 mmHg Low 35-45 [facility] Comment on above: Order Comment: Speci men Type: VENOUS BLOOD SPECIMENOrdering Facility: [facility] Address: [address] [place] [address] Performed By: #### 2 4344-4 ####[facility] LABCLIA [id number] [address] [place] [address] [place] Oxygen saturation in Venous blood 52 % Low 60-85 [facility] Comment on above: Order Comment: Speci men Type: VENOUS BLOOD SPECIMENOrdering Facility: [facility] Address: [address] [place] [address] Performed By: #### 2 4344-4 ####[facility] LABCLIA [id number] [address] [address] [place] Oxyhemoglobin (BldV) [Mass fraction] 51 % Low 60-85 [facility] Comment on above: Order Comment: Speci men Type: VENOUS BLOOD SPECIMENOrdering Facility: [facility] Address: [address] [place] [address] Performed By: #### 2 4344-4 ####[facility] LABCLIA [id number] [place] [id number] [place] pH (BldV) 7.38 [pH] Normal 7.32-7.42 [facility] Comment on above: Order Comment: Speci men Type: VENOUS BLOOD SPECIMENOrdering Facility: [facility] Address: [address] [place] [address] Performed By: #### 2 4344-4 ####[facility] LABIA [id number] [place] [address] [place] pH adjusted to patient's actual temperature (BldV) 7.39 Normal 7.32-7.42 [facility] Comment on above: Order Comment: Speci men Type: VENOUS BLOOD SPECIMENOrdering Facility: [facility] Address: [address] [place] [address] Performed By: #### 2 4344-4 ####[facility] LABIA [id number] [place] [address] [place] Potassium [Moles/Vol] 4.8 mmol/L Normal 3.5-5.0 [facility] Comment on above: Order Comment: Speci men Type: VENOUS BLOOD SPECIMENOrdering Facility: [facility] Address: [address] [place] [address] Performed By: #### 2 4344-4 ####[facility] LABIA [id number] [place] [id number] [place] Sodium [Moles/Vol] 132 mmol/L Low 136-144 [facility] Comment on above: Order Comment: Speci men Type: VENOUS BLOOD SPECIMENOrdering Facility: [facility] Address: [address] [place] [address] Performed By: #### 2 4344-4 ####[facility] LABIA [id number] [place] [id number] [place] Base excess Calc (BldV) [Moles/Vol] 0 mmol/L Normal 0-2 [facility] Comment on above: Order Comment: Speci men Type: VENOUS BLOOD SPECIMENOrdering Facility: [facility] Address: [address] [place] [address] Performed By: #### 2 4344-4 ####[facility] LABIA [id number] [place] [address] [place] Body temperature 96.08 [degF] Normal [facility] Comment on above: Order Comment: Speci men Type: VENOUS BLOOD SPECIMENOrdering Facility: [facility] Address: [address] [place] [address] Performed By: #### 2 4344-4 ####[facility] LABIA [id number] [place] [address] [place] Calcium.ionized (Bld) [Mass/Vol] 1.18 mmol/L Normal 1.08-1.30 [facility] Comment on above: Order Comment: Speci men Type: VENOUS BLOOD SPECIMENOrdering Facility: [facility] Address: [address] [place] [address] Performed By: #### 2 4344-4 ####[facility] LABIA [id number] [place] [address] [place] Calcium.ionized adjusted to pH 7.4 (BldA) [Moles/Vol] 1.15 mmol/L Normal 1.08-1.30 [facility] Comment on above: Order Comment: Speci men Type: VENOUS BLOOD SPECIMENOrdering Facility: [facility] Address: [address] [place], [place] [address] Performed By: #### 2 4344-4 ####[facility] LABIA [id number] [place] [address] [place] Carboxyhemoglobin (BldV) [Mass fraction] 1.3 % Normal 0.0-2.0 [facility] Comment on above: Order Comment: Speci men Type: VENOUS BLOOD SPECIMENOrdering Facility: [facility] Address: [address] [place], [place] [address] Result Comment: Carb oxyhemoglobin Reference Range for Smokers: 2.0-8.0% Performed By: #### 2 4344-4 ####[facility] LABCLIA [id number] [address] [address] [place] CO2 (BldV) [Partial pressure] 48 mm[Hg] Normal 42-55 [facility] Comment on above: Order Comment: Speci men Type: VENOUS BLOOD SPECIMENOrdering Facility: [facility] Address: [address] [place] [address] Performed By: #### 2 4344-4 ####[facility] LABCLIA [id number] [address] [address] [place] CO2 adjusted to patient's actual temperature (BldV) [Partial pressure] 45 mmHg Normal 42-55 [facility] Comment on above: Order Comment: Speci men Type: VENOUS BLOOD SPECIMENOrdering Facility: [facility] Address: [address] [place] [address] Performed By: #### 2 4344-4 ####[facility] LABCLIA [id number] [place] [id number] [place] Glucose [Mass/Vol] 255 mg/dL High 60-105 [facility] Comment on above: Order Comment: Speci men Type: VENOUS BLOOD SPECIMENOrdering Facility: [facility] Address: [address] [place] [address] Performed By: #### 2 4344-4 ####[facility] LABCLIA [id number] [place] [id number] [place] HCO3 (Bld) [Moles/Vol] 25 mmol/L Normal 24-28 [facility] Comment on above: Order Comment: Speci men Type: VENOUS BLOOD SPECIMENOrdering Facility: [facility] Address: [address] [place], [place] [address] Performed By: #### 2 4344-4 ####[facility] LABIA [id number] [place] [address] [place] Hematocrit (Bld) [Volume fraction] 30.3 % Low 39.0-51.0 [facility] Comment on above: Order Comment: Speci men Type: VENOUS BLOOD SPECIMENOrdering Facility: [facility] Address: [address] [place] [address] Performed By: #### 2 4344-4 ####[facility] LABIA [id number] [place] [address] [place] Hemoglobin (Bld) [Mass/Vol] 9.8 g/dL Low 13.0-17.0 [facility] Comment on above: Order Comment: Speci men Type: VENOUS BLOOD SPECIMENOrdering Facility: [facility] Address: [address] [place] [address] Performed By: #### 2 4344-4 ####[facility] LABIA [id number] [place] [address] [place] Lactate [Moles/Vol] 0.9 mmol/L Normal 0.5-2.2 [facility] Comment on above: Order Comment: Speci men Type: VENOUS BLOOD SPECIMENOrdering Facility: [facility] Address: [address] [place] [address] Performed By: #### 2 4344-4 ####[facility] LABIA [id number] [place] [address] [place] LITERS 2 Liters/min Normal [facility] Comment on above: Order Comment: Speci men Type: VENOUS BLOOD SPECIMENOrdering Facility: [facility] Address: [address] [place] [address] Performed By: #### 2 4344-4 ####[facility] LABIA [id number] [place] [id number] [place] Methemoglobin (Bld) [Mass fraction] 1.6 % High 0.0-1.5 [facility] Comment on above: Order Comment: Speci men Type: VENOUS BLOOD SPECIMENOrdering Facility: [facility] Address: [address] [place] [address] Performed By: #### 2 4344-4 ####[facility] LABCLIA [id number] [address] [place] [address] [place] O2 THERAPY NC = Nasal Cannula Normal [facility] Comment on above: Order Comment: Speci men Type: VENOUS BLOOD SPECIMENOrdering Facility: [facility] Address: [address] [place], [place] [address] Performed By: #### 2 4344-4 ####[facility] LABCLIA [id number] [address] [place] [address] [place] Oxygen (BldV) [Partial pressure] 42 mm[Hg] Normal 35-45 [facility] Comment on above: Order Comment: Speci men Type: VENOUS BLOOD SPECIMENOrdering Facility: [facility] Address: [address] [place] [address] Performed By: #### 2 4344-4 ####[facility] LABCLIA [id number] [address] [place] [address] [place] Oxygen adjusted to patient's actual temperature (BldV) [Partial pressure] 38 mmHg Normal 35-45 [facility] Comment on above: Order Comment: Speci men Type: VENOUS BLOOD SPECIMENOrdering Facility: [facility] Address: [address] [place] [address] Performed By: #### 2 4344-4 ####[facility] LABCLIA [id number] [address] [address] [place] Oxygen saturation in Venous blood 73 % Normal 60-85 [facility] Comment on above: Order Comment: Speci men Type: VENOUS BLOOD SPECIMENOrdering Facility: [facility] Address: [address] [place] [address] Performed By: #### 2 4344-4 ####[facility] LABCLIA [id number] [address] [address] [place] Oxyhemoglobin (BldV) [Mass fraction] 71 % Normal 60-85 [facility] Comment on above: Order Comment: Speci men Type: VENOUS BLOOD SPECIMENOrdering Facility: [facility] Address: [address] [place] [address] Performed By: #### 2 4344-4 ####[facility] LABIA [id number] [place] [address] [place] pH (BldV) 7.35 [pH] Normal 7.32-7.42 [facility] Comment on above: Order Comment: Speci men Type: VENOUS BLOOD SPECIMENOrdering Facility: [facility] Address: [address] [place] [address] Performed By: #### 2 4344-4 ####[facility] LABIA [id number] [place] [address] [place] pH adjusted to patient's actual temperature (BldV) 7.37 Normal 7.32-7.42 [facility] Comment on above: Order Comment: Speci men Type: VENOUS BLOOD SPECIMENOrdering Facility: [facility] Address: [address] [place] [address] Performed By: #### 2 4344-4 ####[facility] LABIA [id number] [place] [id number] [place] Potassium [Moles/Vol] 4.5 mmol/L Normal 3.5-5.0 [facility] Comment on above: Order Comment: Speci men Type: VENOUS BLOOD SPECIMENOrdering Facility: [facility] Address: [address] [place] [address] Performed By: #### 2 4344-4 ####[facility] LABIA [id number] [place] [id number] [place] Sodium [Moles/Vol] 135 mmol/L Low 136-144 [facility] Comment on above: Order Comment: Speci men Type: VENOUS BLOOD SPECIMENOrdering Facility: [facility] Address: [address] [place] [address] Performed By: #### 2 4344-4 ####[facility] LABIA [id number] [place] [address] [place] Base excess Calc (BldV) [Moles/Vol] 2 mmol/L Normal 0-2 [facility] Comment on above: Order Comment: Speci men Type: VENOUS BLOOD SPECIMENOrdering Facility: [facility] Address: [address] [place] [address] Performed By: #### 2 4344-4 ####[facility] LABIA [id number] [place] [address] [place] Calcium.ionized (Bld) [Mass/Vol] 1.16 mmol/L Normal 1.08-1.30 [facility] Comment on above: Order Comment: Speci men Type: VENOUS BLOOD SPECIMENOrdering Facility: [facility] Address: [address] [place] [address] Performed By: #### 2 4344-4 ####[facility] LABIA [id number] [place] [address] [place] Carboxyhemoglobin (BldV) [Mass fraction] 1.4 % Normal 0.0-2.0 [facility] Comment on above: Order Comment: Speci men Type: VENOUS BLOOD SPECIMENOrdering Facility: [facility] Address: [address] [place] [address] Result Comment: Carb oxyhemoglobin Reference Range for Smokers: 2.0-8.0% Performed By: #### 2 4344-4 ####[facility] LABIA [id number] [place] [address] [place] CO2 (BldV) [Partial pressure] 49 mm[Hg] Normal 42-55 [facility] Comment on above: Order Comment: Speci men Type: VENOUS BLOOD SPECIMENOrdering Facility: [facility] Address: [address] [place] [id number] Performed By: #### 2 4344-4 ####[facility] LABCLIA [id number] [address] [address] [place] CO2 adjusted to patient's actual temperature (BldV) [Partial pressure] 47 mmHg Normal 42-55 [facility] Comment on above: Order Comment: Speci men Type: VENOUS BLOOD SPECIMENOrdering Facility: [facility] Address: [address] [place], [place] [address] Performed By: #### 2 4344-4 ####[facility] LABCLIA [id number] [place] [id number] [place] Glucose [Mass/Vol] 125 mg/dL High 60-105 [facility] Comment on above: Order Comment: Speci men Type: VENOUS BLOOD SPECIMENOrdering Facility: [facility] Address: [address] [place] [address] Performed By: #### 2 4344-4 ####[facility] LABCLIA [id number] [place] [id number] [place] HCO3 (Bld) [Moles/Vol] 27 mmol/L Normal 24-28 [facility] Comment on above: Order Comment: Speci men Type: VENOUS BLOOD SPECIMENOrdering Facility: [facility] Address: [address] [place], [place] [address] Performed By: #### 2 4344-4 ####[facility] LABCLIA [id number] [address] [address] [place] Hematocrit (Bld) [Volume fraction] 28.8 % Low 39.0-51.0 [facility] Comment on above: Order Comment: Speci men Type: VENOUS BLOOD SPECIMENOrdering Facility: [facility] Address: [address] [place], [place] [address] Performed By: #### 2 4344-4 ####[facility] LABCLIA [id number] [address] [address] [place] Hemoglobin (Bld) [Mass/Vol] 9.3 g/dL Low 13.0-17.0 [facility] Comment on above: Order Comment: Speci men Type: VENOUS BLOOD SPECIMENOrdering Facility: [facility] Address: [address] [place], [place] [address] Performed By: #### 2 4344-4 ####[facility] LABCLIA [id number] [address] [address] [place] Methemoglobin (Bld) [Mass fraction] 1.1 % Normal 0.0-1.5 [facility] Comment on above: Order Comment: Speci men Type: VENOUS BLOOD SPECIMENOrdering Facility: [facility] Address: [address] [place] [address] Performed By: #### 2 4344-4 ####[facility] LABCLIA [id number] [place] [id number] [place] Oxygen (BldV) [Partial pressure] 40 mm[Hg] Normal 35-45 [facility] Comment on above: Order Comment: Speci men Type: VENOUS BLOOD SPECIMENOrdering Facility: [facility] Address: [address] [place], [place] [address] Performed By: #### 2 4344-4 ####[facility] LABCLIA [id number] [place] [id number] [place] Oxygen adjusted to patient's actual temperature (BldV) [Partial pressure] 38 mmHg Normal 35-45 [facility] Comment on above: Order Comment: Speci men Type: VENOUS BLOOD SPECIMENOrdering Facility: [facility] Address: [address] [place], [place] [address] Performed By: #### 2 4344-4 ####[facility] LABCLIA [id number] [address] [address] [place] Oxygen saturation in Venous blood 63 % Normal 60-85 [facility] Comment on above: Order Comment: Speci men Type: VENOUS BLOOD SPECIMENOrdering Facility: [facility] Address: [address] [place] [address] Performed By: #### 2 4344-4 ####[facility] LABCLIA [id number] [address] [address] [place] Oxyhemoglobin (BldV) [Mass fraction] 62 % Normal 60-85 [facility] Comment on above: Order Comment: Speci men Type: VENOUS BLOOD SPECIMENOrdering Facility: [facility] Address: [address] [place] [address] Performed By: #### 2 4344-4 ####[facility] LABCLIA [id number] [place] [address] [place] pH (BldV) 7.37 [pH] Normal 7.32-7.42 [facility] Comment on above: Order Comment: Speci men Type: VENOUS BLOOD SPECIMENOrdering Facility: [facility] Address: [address] [place] [address] Performed By: #### 2 4344-4 ####[facility] LABIA [id number] [place] [address] [place] pH adjusted to patient's actual temperature (BldV) 7.38 Normal 7.32-7.42 [facility] Comment on above: Order Comment: Speci men Type: VENOUS BLOOD SPECIMENOrdering Facility: [facility] Address: [address] [place] [address] Performed By: #### 2 4344-4 ####[facility] LABIA [id number] [place] [id number] [place] Potassium [Moles/Vol] 3.9 mmol/L Normal 3.5-5.0 [facility] Comment on above: Order Comment: Speci men Type: VENOUS BLOOD SPECIMENOrdering Facility: [facility] Address: [address] [place] [address] Performed By: #### 2 4344-4 ####[facility] LABCLIA [id number] [place] [address] [place] Sodium [Moles/Vol] 135 mmol/L Low 136-144 [facility] Comment on above: Order Comment: Speci men Type: VENOUS BLOOD SPECIMENOrdering Facility: [facility] Address: [address] [place] [address] Performed By: #### 2 4344-4 ####[facility] LABIA [id number] [place] [address] [place] Base excess Calc (BldV) [Moles/Vol] 1 mmol/L Normal 0-2 [facility] Comment on above: Order Comment: Speci men Type: VENOUS BLOOD SPECIMENOrdering Facility: [facility] Address: [address] [place] [address] Performed By: #### 2 4344-4 ####[facility] LABIA [id number] [place] [address] [place] Body temperature 97.16 [degF] Normal [facility] Comment on above: Order Comment: Speci men Type: VENOUS BLOOD SPECIMENOrdering Facility: [facility] Address: [address] [place] [address] Performed By: #### 2 4344-4 ####[facility] LABIA [id number] [place] [address] [place] Calcium.ionized (Bld) [Mass/Vol] 1.17 mmol/L Normal 1.08-1.30 [facility] Comment on above: Order Comment: Speci men Type: VENOUS BLOOD SPECIMENOrdering Facility: [facility] Address: [address] [place] [address] Performed By: #### 2 4344-4 ####[facility] LABIA [id number] [place] [address] [place] Calcium.ionized adjusted to pH 7.4 (BldA) [Moles/Vol] 1.13 mmol/L Normal 1.08-1.30 [facility] Comment on above: Order Comment: Speci men Type: VENOUS BLOOD SPECIMENOrdering Facility: [facility] Address: [address] [place] [address] Performed By: #### 2 4344-4 ####[facility] LABCLIA [id number] [place] [address] [place] Carboxyhemoglobin (BldV) [Mass fraction] 1.2 % Normal 0.0-2.0 [facility] Comment on above: Order Comment: Speci men Type: VENOUS BLOOD SPECIMENOrdering Facility: [facility] Address: [address] [place] [address] Result Comment: Carb oxyhemoglobin Reference Range for Smokers: 2.0-8.0% Performed By: #### 2 4344-4 ####[facility] LABCLIA [id number] [place] [address] [place] CO2 (BldV) [Partial pressure] 51 mm[Hg] Normal 42-55 [facility] Comment on above: Order Comment: Speci men Type: VENOUS BLOOD SPECIMENOrdering Facility: [facility] Address: [address] [place] [address] Performed By: #### 2 4344-4 ####[facility] LABCLIA [id number] [place] [address] [place] CO2 adjusted to patient's actual temperature (BldV) [Partial pressure] 49 mmHg Normal 42-55 [facility] Comment on above: Order Comment: Speci men Type: VENOUS BLOOD SPECIMENOrdering Facility: [facility] Address: [address] [place] [address] Performed By: #### 2 4344-4 ####[facility] LABCLIA [id number] [place] [id number] [place] Glucose [Mass/Vol] 142 mg/dL High 60-105 [facility] Comment on above: Order Comment: Speci men Type: VENOUS BLOOD SPECIMENOrdering Facility: [facility] Address: [address] [place], [place] [address] Performed By: #### 2 4344-4 ####[facility] LABCLIA [id number] [address] [address] [place] HCO3 (Bld) [Moles/Vol] 26 mmol/L Normal 24-28 [facility] Comment on above: Order Comment: Speci men Type: VENOUS BLOOD SPECIMENOrdering Facility: [facility] Address: [address] [place] [address] Performed By: #### 2 4344-4 ####[facility] LABIA [id number] [place] [address] [place] Hematocrit (Bld) [Volume fraction] 27.1 % Low 39.0-51.0 [facility] Comment on above: Order Comment: Speci men Type: VENOUS BLOOD SPECIMENOrdering Facility: [facility] Address: [address] [place] [address] Performed By: #### 2 4344-4 ####[facility] LABIA [id number] [place] [address] [place] Hemoglobin (Bld) [Mass/Vol] 8.7 g/dL Low 13.0-17.0 [facility] Comment on above: Order Comment: Speci men Type: VENOUS BLOOD SPECIMENOrdering Facility: [facility] Address: [address] [place] [address] Performed By: #### 2 4344-4 ####[facility] LABIA [id number] [place] [id number] [place] Lactate [Moles/Vol] 1.0 mmol/L Normal 0.5-2.2 [facility] Comment on above: Order Comment: Speci men Type: VENOUS BLOOD SPECIMENOrdering Facility: [facility] Address: [address] [place] [address] Performed By: #### 2 4344-4 ####[facility] LABCLIA [id number] [address] [place] [address] [place] LITERS 3 Liters/min Normal [facility] Comment on above: Order Comment: Speci men Type: VENOUS BLOOD SPECIMENOrdering Facility: [facility] Address: [address] [place] [address] Performed By: #### 2 4344-4 ####[facility] LABCLIA [id number] [address] [place] [address] [place] Methemoglobin (Bld) [Mass fraction] 1.2 % Normal 0.0-1.5 [facility] Comment on above: Order Comment: Speci men Type: VENOUS BLOOD SPECIMENOrdering Facility: [facility] Address: [address] [place], [place] [address] Performed By: #### 2 4344-4 ####[facility] LABCLIA [id number] [address] [address] [place] O2 THERAPY [place] = Nasal Cannula Normal [facility] Comment on above: Order Comment: Speci men Type: VENOUS BLOOD SPECIMENOrdering Facility: [facility] Address: [address] [place] [address] Performed By: #### 2 4344-4 ####[facility] LABCLIA [id number] [address] [address] [place] Oxygen (BldV) [Partial pressure] 34 mm[Hg] Low 35-45 [facility] Comment on above: Order Comment: Speci men Type: VENOUS BLOOD SPECIMENOrdering Facility: [facility] Address: [address] [place] [address] Performed By: #### 2 4344-4 ####[facility] LABCLIA [id number] [address] [place] [address] [place] Oxygen adjusted to patient's actual temperature (BldV) [Partial pressure] 32 mmHg Low 35-45 [facility] Comment on above: Order Comment: Speci men Type: VENOUS BLOOD SPECIMENOrdering Facility: [facility] Address: [address] [place] [address] Performed By: #### 2 4344-4 ####[facility] LABCLIA [id number] [address] [place] [address] [place] Oxygen saturation in Venous blood 55 % Low 60-85 [facility] Comment on above: Order Comment: Speci men Type: VENOUS BLOOD SPECIMENOrdering Facility: [facility] Address: [address] [place], [place] [address] Performed By: #### 2 4344-4 ####[facility] LABCLIA [id number] [address] [place] [address] [place] Oxyhemoglobin (BldV) [Mass fraction] 54 % Low 60-85 [facility] Comment on above: Order Comment: Speci men Type: VENOUS BLOOD SPECIMENOrdering Facility: [facility] Address: [address] [place], [place] [address] Performed By: #### 2 4344-4 ####[facility] LABCLIA [id number] [address] [address] [place] pH (BldV) 7.34 [pH] Normal 7.32-7.42 [facility] Comment on above: Order Comment: Speci men Type: VENOUS BLOOD SPECIMENOrdering Facility: [facility] Address: [address] [place] [address] Performed By: #### 2 4344-4 ####[facility] LABCLIA [id number] [address] [place] [address] [place] pH adjusted to patient's actual temperature (BldV) 7.35 Normal 7.32-7.42 [facility] Comment on above: Order Comment: Speci men Type: VENOUS BLOOD SPECIMENOrdering Facility: [facility] Address: [address] [place] [address] Performed By: #### 2 4344-4 ####[facility] LABCLIA [id number] [place] [id number] [place] Potassium [Moles/Vol] 3.7 mmol/L Normal 3.5-5.0 [facility] Comment on above: Order Comment: Speci men Type: VENOUS BLOOD SPECIMENOrdering Facility: [facility] Address: [address] [place] [address] Performed By: #### 2 4344-4 ####[facility] LABCLIA [id number] [place] [address] [place] Sodium [Moles/Vol] 136 mmol/L Normal 136-144 [facility] Comment on above: Order Comment: Speci men Type: VENOUS BLOOD SPECIMENOrdering Facility: [facility] Address: [address] [place] [address] Performed By: #### 2 4344-4 ####[facility] LABCLIA [id number] [place] [address] [place] BASE DEFICIT, VENOUS -1 mmol/L Normal -2-0 [facility] Comment on above: Order Comment: Speci men Type: VENOUS BLOOD SPECIMENOrdering Facility: [facility] Address: [address] [place] [address] Performed By: #### 2 4344-4 ####[facility] LABCLIA [id number] [place] [address] [place] Body temperature 97.88 [degF] Normal [facility] Comment on above: Order Comment: Speci men Type: VENOUS BLOOD SPECIMENOrdering Facility: [facility] Address: [address] [place] [address] Performed By: #### 2 4344-4 ####[facility] LABCLIA [id number] [place] [address] [place] Calcium.ionized (Bld) [Mass/Vol] 1.15 mmol/L Normal 1.08-1.30 [facility] Comment on above: Order Comment: Speci men Type: VENOUS BLOOD SPECIMENOrdering Facility: [facility] Address: [address] [place] [address] Performed By: #### 2 4344-4 ####[facility] LABCLIA [id number] [place] [address] [place] Calcium.ionized adjusted to pH 7.4 (BldA) [Moles/Vol] 1.09 mmol/L Normal 1.08-1.30 [facility] Comment on above: Order Comment: Speci men Type: VENOUS BLOOD SPECIMENOrdering Facility: [facility] Address: [address] [place] [address] Performed By: #### 2 4344-4 ####[facility] LABIA [id number] [place] [address] [place] Carboxyhemoglobin (BldV) [Mass fraction] 1.0 % Normal 0.0-2.0 [facility] Comment on above: Order Comment: Speci men Type: VENOUS BLOOD SPECIMENOrdering Facility: [facility] Address: [address] [place] [address] Result Comment: Carb oxyhemoglobin Reference Range for Smokers: 2.0-8.0% Performed By: #### 2 4344-4 ####[facility] LABIA [id number] [place] [address] [place] CO2 (BldV) [Partial pressure] 51 mm[Hg] Normal 42-55 [facility] Comment on above: Order Comment: Speci men Type: VENOUS BLOOD SPECIMENOrdering Facility: [facility] Address: [address] [place], [place] [address] Performed By: #### 2 4344-4 ####[facility] LABCLIA [id number] [place] [id number] [place] CO2 adjusted to patient's actual temperature (BldV) [Partial pressure] 50 mmHg Normal 42-55 [facility] Comment on above: Order Comment: Speci men Type: VENOUS BLOOD SPECIMENOrdering Facility: [facility] Address: [address] [place], [place] [address] Performed By: #### 2 4344-4 ####[facility] LABCLIA [id number] [address] [address] [place] Glucose [Mass/Vol] 206 mg/dL High 60-105 [facility] Comment on above: Order Comment: Speci men Type: VENOUS BLOOD SPECIMENOrdering Facility: [facility] Address: [address] [place] [address] Performed By: #### 2 4344-4 ####[facility] LABCLIA [id number] [place] [id number] [place] HCO3 (Bld) [Moles/Vol] 25 mmol/L Normal 24-28 [facility] Comment on above: Order Comment: Speci men Type: VENOUS BLOOD SPECIMENOrdering Facility: [facility] Address: [address] [place] [address] Performed By: #### 2 4344-4 ####[facility] LABCLIA [id number] [place] [id number] [place] Hematocrit (Bld) [Volume fraction] 26.3 % Low 39.0-51.0 [facility] Comment on above: Order Comment: Speci men Type: VENOUS BLOOD SPECIMENOrdering Facility: [facility] Address: [address] [place] [address] Performed By: #### 2 4344-4 ####[facility] LABCLIA [id number] [address] [address] [place] Hemoglobin (Bld) [Mass/Vol] 8.5 g/dL Low 13.0-17.0 [facility] Comment on above: Order Comment: Speci men Type: VENOUS BLOOD SPECIMENOrdering Facility: [facility] Address: [address] [place], [place] [address] Performed By: #### 2 4344-4 ####[facility] LABCLIA [id number] [address] [address] [place] Lactate [Moles/Vol] 1.2 mmol/L Normal 0.5-2.2 [facility] Comment on above: Order Comment: Speci men Type: VENOUS BLOOD SPECIMENOrdering Facility: [facility] Address: [address] [place], [place] [address] Performed By: #### 2 4344-4 ####[facility] LABCLIA [id number] [place] [id number] [place] LITERS 3 Liters/min Normal [facility] Comment on above: Order Comment: Speci men Type: VENOUS BLOOD SPECIMENOrdering Facility: [facility] Address: [address] [place] [address] Performed By: #### 2 4344-4 ####[facility] LABIA [id number] [place] [address] [place] Methemoglobin (Bld) [Mass fraction] 1.3 % Normal 0.0-1.5 [facility] Comment on above: Order Comment: Speci men Type: VENOUS BLOOD SPECIMENOrdering Facility: [facility] Address: [address] [place] [address] Performed By: #### 2 4344-4 ####[facility] LABIA [id number] [place] [id number] [place] O2 THERAPY NC = Nasal Cannula Normal [facility] Comment on above: Order Comment: Speci men Type: VENOUS BLOOD SPECIMENOrdering Facility: [facility] Address: [address] [place] [address] Performed By: #### 2 4344-4 ####[facility] LABCLIA [id number] [address] [address] [place] Oxygen (BldV) [Partial pressure] 35 mm[Hg] Normal 35-45 [facility] Comment on above: Order Comment: Speci men Type: VENOUS BLOOD SPECIMENOrdering Facility: [facility] Address: [address] [place], [place] [address] Performed By: #### 2 4344-4 ####[facility] LABCLIA [id number] [place] [address] [place] Oxygen adjusted to patient's actual temperature (BldV) [Partial pressure] 34 mmHg Low 35-45 [facility] Comment on above: Order Comment: Speci men Type: VENOUS BLOOD SPECIMENOrdering Facility: [facility] Address: [address] [place] [address] Performed By: #### 2 4344-4 ####[facility] LABCLIA [id number] [place] [address] [place] Oxygen saturation in Venous blood 57 % Low 60-85 [facility] Comment on above: Order Comment: Speci men Type: VENOUS BLOOD SPECIMENOrdering Facility: [facility] Address: [address] [place] [address] Performed By: #### 2 4344-4 ####[facility] LABCLIA [id number] [place] [address] [place] Oxyhemoglobin (BldV) [Mass fraction] 56 % Low 60-85 [facility] Comment on above: Order Comment: Speci men Type: VENOUS BLOOD SPECIMENOrdering Facility: [facility] Address: [address] [place] [address] Performed By: #### 2 4344-4 ####[facility] LABCLIA [id number] [place] [id number] [place] pH (BldV) 7.31 [pH] Low 7.32-7.42 [facility] Comment on above: Order Comment: Speci men Type: VENOUS BLOOD SPECIMENOrdering Facility: [facility] Address: [address] [place], [place] [address] Performed By: #### 2 4344-4 ####[facility] LABCLIA [id number] [place] [address] [place] pH adjusted to patient's actual temperature (BldV) 7.32 Normal 7.32-7.42 [facility] Comment on above: Order Comment: Speci men Type: VENOUS BLOOD SPECIMENOrdering Facility: [facility] Address: [address] [place] [address] Performed By: #### 2 4344-4 ####[facility] LABCLIA [id number] [place] [id number] [place] Potassium [Moles/Vol] 3.8 mmol/L Normal 3.5-5.0 [facility] Comment on above: Order Comment: Speci men Type: VENOUS BLOOD SPECIMENOrdering Facility: [facility] Address: [address] [place] [address] Performed By: #### 2 4344-4 ####[facility] LABCLIA [id number] [place] [address] [place] Sodium [Moles/Vol] 134 mmol/L Low 136-144 [facility] Comment on above: Order Comment: Speci men Type: VENOUS BLOOD SPECIMENOrdering Facility: [facility] Address: [address] [place] [address] Performed By: #### 2 4344-4 ####[facility] LABCLIA [id number] [place] [id number] [place] IMMUNOFIXATION SCREEN, SERUM on 10-19-2024 MPA RESULT No M protein is identified. Normal No M protein is identified. [facility] Comment on above: Order Comment: Speci men Type: BLOOD SPECIMENOrdering Facility: [facility] Address: [address] [place] [address] Performed By: #### I [facility] ####[facility] LABCLIA [id number] [place] [id number] [place] STAFF REVIEW (MPA) Reviewed by Dr. Hattie Lopez MD [facility] Comment on above: Order Comment: Speci men Type: BLOOD SPECIMENOrdering Facility: [facility] Address: [address] [place] [address] Performed By: #### I FESC ####[facility] LABIA [id number] [place] [address] [place] KAPPA/HANNA,FREE,SERon 2024 Immunoglobulin light chains.kappa.free (S) [Mass/Vol] 38.7 mg/L High 3.3-19.4 [facility] Comment on above: Order Comment: Speci men Type: BLOOD SPECIMENOrdering Facility: [facility] Address: [address] [place] [address] Result Comment: Rare ly, increased serum free light chains levels may not be detected or accurately quantified due to prozone phenomenon or in high viscosity samples using this immunoturbidimetric assay. Correlation with other laboratory results and clinical findings is recommended.The [place] Free Light Chain was performed using the Binding Site Optilite immunoturbidimetric method. Result obtained with different assay methods or kits cannot be used interchangeably. Performed By: #### K LFRS ####[facility] LABIA [id number] [place] [address] [place] Immunoglobulin light chains.kappa/Immunoglob ulin light chains.lambda (S) [Mass ratio] 0.91 Normal 0.26-1.65 [facility] Comment on above: Order Comment: Speci men Type: BLOOD SPECIMENOrdering Facility: [facility] Address: [address] [place] [address] Performed By: #### K LFRS ####[facility] [id number] [place] [address] [place] Immunoglobulin light chains.lambda.free [Mass/Vol] 42.3 mg/L High 5.7-26.3 [facility] Comment on above: Order Comment: Speci men Type: BLOOD SPECIMENOrdering Facility: [facility] Address: [address] [place] [address] Result Comment: Rare ly, increased serum free [...] used interchangeably. Performed By: #### K LFRS ####[facility] LABCLIA [id number] [place] [address] [place] MONOCLONAL PROT UR W/INTERPo n 10-19-2024 STAFF REVIEW (UMPA) Reviewed by Dr. Hattie Lopez MD Normal [facility] Comment on above: Order Comment: Speci men Type: URINE SPECIMENOrdering Facility: [facility] Address: [address] [place] [address] Performed By: #### U RMPA ####[facility] LABIA [id number] [address] [place] [facility] UMPA RESULT No M protein is identified. Normal No M protein is identified. [facility] Comment on above: Order Comment: Speci men Type: URINE SPECIMENOrdering Facility: [facility] Address: [address] [place] [address] Performed By: #### U RMPA ####[facility] LABCLIA [id number] [place] [id number] [place] Magnesium SerPl-mCncon 10-19 Magnesium [Mass/Vol] 3.2 mg/dL High 1.7-2.3 [facility] Comment on above: Order Comment: Speci men Type: BLOOD SPECIMENOrdering Facility: [facility] Address: [address] [place] [address] Result Comment: Resu lt rechecked. Performed By: #### 2 4323-8, 20477-8, 2777-1 ####[facility] LABCLIA [id number] [place] [id number] [place] Phosphate SerPl-mCncon 10-19 Phosphate [Mass/Vol] 3.5 mg/dL Normal 2.7-4.8 [facility] Comment on above: Order Comment: Speci men Type: BLOOD SPECIMENOrdering Facility: [facility] Address: [address] [place] [address] Performed By: #### 2 4323-8, 64185-9, 2777-1 ####[facility] LABCLIA [id number] [place] [id number] [place] Prot/Creat Uron 10-19-2024 Protein/Creatinine (U) [Mass ratio] 0.44 mg/mg High <0.15 [facility] Comment on above: Order Comment: Speci men Type: URINE SPECIMENOrdering Facility: [facility] Address: [address] [place] [address] Result Comment: Adul t Proteinuria Categories:<0.15 mg/mg is considered normal to mildly increased0.15 - 0.50 mg/mg is considered moderately increased>0.50 mg/mg is considered severely increasedKDIGO. (2013). KDIGO 2012 Clinical Practice Guideline for the Evaluation and Management of Chronic Kidney Disease. Official Journal of the International Society of Nephrology, 3(1), 1-150. Performed By: #### 2 890-2 ####[facility] LABIA [id number] [place] [id number] [place] Protein/Creatinine (U) [Mass ratio]on 10-19-2024 Creatinine (U) [Mass/Vol] 9.1 mg/dL Low 20.0-300.0 [facility] Comment on above: Order Comment: Speci men Type: URINE SPECIMENOrdering Facility: [facility] Address: [address] [place] [address] Performed By: #### 2 890-2 ####[facility] LABCLIA [id number] [place] [id number] [place] Protein (U) [Mass/Vol] 4 mg/dL Normal 0-20 [facility] Comment on above: Order Comment: Speci men Type: URINE SPECIMENOrdering Facility: [facility] Address: [address] [place] [address] Performed By: #### 2 890-2 ####[facility] LABIA [id number] [place] [address] [place] THERAPY NTon 10-19-2024 THERAPY NT Normal [facility] XR CHEST 1V FRONTAL PORTon 0 10-19-2024 XR CHEST 1V FRONTAL PORT Normal [facility] aPTT PPPon 10-19-2024 aPTT Coag (PPP) [Time] s High 23.0-32.4 [facility] Comment on above: Order Comment: Speci men Type: BLOOD SPECIMENOrdering Facility: [facility] Address: [address] [place] [address] Result Comment: Resu lt rechecked.Sample checked for clot. Performed By: #### 3 217-7, 25048-8 ####[facility] LABIA [id number] [place] [address] [place] aPTT Coag (PPP) [Time] 130.0 s High 23.0-32.4 [facility] Comment on above: Order Comment: Speci men Type: BLOOD SPECIMENOrdering Facility: [facility] Address: [address] [place] [address] Result Comment: Resu lt rechecked.Sample checked for clot. Performed By: #### 1 4979-9 ####[facility] LABIA [id number] [place] [id number] [place] CASE MGT INIT ASSESon 2024 CASE MGT INIT ASSES Normal [facility] CBC W Auto Differential pane l (Bld)on 10-18-2024 Basophils (Bld) [#/Vol] 0.04 10*3/uL Normal <0.11 [facility] Comment on above: Order Comment: Speci men Type: BLOOD SPECIMENOrdering Facility: [facility] Address: [address] [place] [address] Performed By: #### 5 7021-8 ####[facility] LABCLIA [id number] [place] [address] [place] Basophils/100 WBC (Bld) 0.9 % Normal C [facility] Comment on above: Order Comment: Speci men Type: BLOOD SPECIMENOrdering Facility: [facility] Address: [address] [place] [address] Performed By: #### 5 7021-8 ####[facility] LABCLIA [id number] [place] [address] [place] Differential cell count method Nom (Bld) Auto Normal [facility] Comment on above: Order Comment: Speci men Type: BLOOD SPECIMENOrdering Facility: [facility] Address: [address] [place] [address] Performed By: #### 5 7021-8 ####[facility] LABCLIA [id number] [address] [place] Eosinophils (Bld) [#/Vol] 0.09 10*3/uL Normal <0.46 [facility] Comment on above: Order Comment: Speci men Type: BLOOD SPECIMENOrdering Facility: [facility] Address: [address] [place] [address] Performed By: #### 5 7021-8 ####[facility] LABCLIA [id number] [address] [place] Eosinophils/100 WBC (Bld) 2.0 % Normal [facility] Comment on above: Order Comment: Speci men Type: BLOOD SPECIMENOrdering Facility: [facility] Address: [address] [place] [address] Performed By: #### 5 7021-8 ####[facility] LABCLIA [id number] [place] [address] [place] Erythrocyte distribution width (RBC) [Ratio] 17.0 % High 11.5-15.0 [facility] Comment on above: Order Comment: Speci men Type: BLOOD SPECIMENOrdering Facility: [facility] Address: [address] [place] [address] Performed By: #### 5 7021-8 ####[facility] LABCLIA [id number] [place] [address] [place] Hematocrit (Bld) [Volume fraction] 28.4 % Low 39.0-51.0 [facility] Comment on above: Order Comment: Speci men Type: BLOOD SPECIMENOrdering Facility: [facility] Address: [address] [place] [address] Performed By: #### 5 7021-8 ####[facility] LABIA [id number] [place] [address] [place] Hemoglobin (Bld) [Mass/Vol] 8.9 g/dL Low 13.0-17.0 [facility] Comment on above: Order Comment: Speci men Type: BLOOD SPECIMENOrdering Facility: [facility] Address: [address] [place] [address] Performed By: #### 5 7021-8 ####[facility] LABIA [id number] [place] [address] [place] Immature granulocytes (Bld) [#/Vol] 10*3/uL Normal <0.10 [facility] Comment on above: Order Comment: Speci men Type: BLOOD SPECIMENOrdering Facility: [facility] Address: [address] [place] [address] Performed By: #### 5 7021-8 ####[facility] LABIA [id number] [place] [address] [place] Immature granulocytes/100 WBC (Bld) 0.2 % Normal [facility] Comment on above: Order Comment: Speci men Type: BLOOD SPECIMENOrdering Facility: [facility] Address: [address] [place] [address] Performed By: #### 5 7021-8 ####[facility] LABCLIA [id number] [place] [address] [place] Lymphocytes (Bld) [#/Vol] 0.74 10*3/uL Low 1.00-4.00 [facility] Comment on above: Order Comment: Speci men Type: BLOOD SPECIMENOrdering Facility: [facility] Address: [address] [place] [address] Performed By: #### 5 7021-8 ####[facility] LABCLIA [id number] [place] [address] [place] Lymphocytes/100 WBC (Bld) 16.6 % Normal [facility] Comment on above: Order Comment: Speci men Type: BLOOD SPECIMENOrdering Facility: [facility] Address: [address] [place] [address] Performed By: #### 5 7021-8 ####[facility] LABCLIA [id number] [place] [address] [place] MCH (RBC) [Entitic mass] 32.0 pg Normal 26.0-34.0 [facility] Comment on above: Order Comment: Speci men Type: BLOOD SPECIMENOrdering Facility: [facility] Address: [address] [place] [address] Performed By: #### 5 7021-8 ####[facility] LABCLIA [id number] [place] [address] [place] MCHC (RBC) [Mass/Vol] 31.3 g/dL Normal 30.5-36.0 [facility] Comment on above: Order Comment: Speci men Type: BLOOD SPECIMENOrdering Facility: [facility] Address: [address] [place] [address] Performed By: #### 5 7021-8 ####[facility] LABCLIA [id number] [place] [address] [place] MCV (RBC) [Entitic vol] 102.2 fL High 80.0-100.0 C [facility] Comment on above: Order Comment: Speci men Type: BLOOD SPECIMENOrdering Facility: [facility] Address: [address] [place] [address] Performed By: #### 5 7021-8 ####[facility] LABCLIA [id number] [place] [address] [place] Monocytes (Bld) [#/Vol] 0.65 10*3/uL Normal <0.87 [facility] Comment on above: Order Comment: Speci men Type: BLOOD SPECIMENOrdering Facility: [facility] Address: [address] [place] [address] Performed By: #### 5 7021-8 ####[facility] LABCLIA [id number] [place] [address] [place] Monocytes/100 WBC (Bld) 14.6 % Normal C [facility] Comment on above: Order Comment: Speci men Type: BLOOD SPECIMENOrdering Facility: [facility] Address: [address] [place] [address] Performed By: #### 5 7021-8 ####[facility] LABCLIA [id number] [place] [address] [place] Neutrophils (Bld) [#/Vol] 2.93 10*3/uL Normal 1.45-7.50 [facility] Comment on above: Order Comment: Speci men Type: BLOOD SPECIMENOrdering Facility: [facility] Address: [address] [place] [address] Performed By: #### 5 7021-8 ####[facility] LABCLIA [id number] [place] [address] [place] Neutrophils/100 WBC (Bld) 65.7 % Normal [facility] Comment on above: Order Comment: Speci men Type: BLOOD SPECIMENOrdering Facility: [facility] Address: [address] [place] [address] Performed By: #### 5 7021-8 ####[facility] LABCLIA [id number] [place] [address] [place] Nucleated RBC (Bld) [#/Vol] 10*3/uL Normal <0.01 [facility] Comment on above: Order Comment: Speci men Type: BLOOD SPECIMENOrdering Facility: [facility] Address: [address] [place] [address] Performed By: #### 5 7021-8 ####[facility] LABCLIA [id number] [place] [address] [place] Nucleated RBC/100 WBC (Bld) [Ratio] 0.0 /100 WBC Normal [facility] Comment on above: Order Comment: Speci men Type: BLOOD SPECIMENOrdering Facility: [facility] Address: [address] [place] [address] Performed By: #### 5 7021-8 ####[facility] LABIA [id number] [place] [address] [place] Platelet mean volume (Bld) [Entitic vol] 12.2 fL Normal 9.0-12.7 [facility] Comment on above: Order Comment: Speci men Type: BLOOD SPECIMENOrdering Facility: [facility] Address: [address] [place] [address] Performed By: #### 5 7021-8 ####[facility] LABCLIA [id number] [place] [id number] [place] Platelets (Bld) [#/Vol] 120 10*3/uL Low 150-400 [facility] Comment on above: Order Comment: Speci men Type: BLOOD SPECIMENOrdering Facility: [facility] Address: [address] [place] [address] Performed By: #### 5 7021-8 ####[facility] LABCLIA [id number] [place] [address] [place] RBC (Bld) [#/Vol] 2.78 10*6/uL Low 4.20-6.00 [facility] Comment on above: Order Comment: Speci men Type: BLOOD SPECIMENOrdering Facility: [facility] Address: [address] [place] [address] Performed By: #### 5 7021-8 ####[facility] LABCLIA [id number] [place] [address] [place] WBC (Bld) [#/Vol] 4.46 10*3/uL Normal 3.70-11.00 [facility] Comment on above: Order Comment: Speci men Type: BLOOD SPECIMENOrdering Facility: [facility] Address: [address] [place] [address] Performed By: #### 5 7021-8 ####[facility] LABCLIA [id number] [place] [address] [place] CBC panel Auto (Bld)on 10-18 Erythrocyte distribution width (RBC) [Ratio] 17.0 % High 11.5-15.0 [facility] Comment on above: Order Comment: Speci men Type: BLOOD SPECIMENOrdering Facility: [facility] Address: [address] [place] [address] Performed By: #### 5 8410-2 ####[facility] LABCLIA [id number] [place] [address] [place] Hematocrit (Bld) [Volume fraction] 29.7 % Low 39.0-51.0 [facility] [facility] Comment on above: Order Comment: Speci men Type: BLOOD SPECIMENOrdering Facility: [facility] Address: [address] [place] [address] Performed By: #### 5 8410-2 ####[facility] LABCLIA [id number] [place] [address] [place] Hemoglobin (Bld) [Mass/Vol] 9.0 g/dL Low 13.0-17.0 [facility] Comment on above: Order Comment: Speci men Type: BLOOD SPECIMENOrdering Facility: [facility] Address: [address] [place] [address] Performed By: #### 5 8410-2 ####[facility] LABIA [id number] [place] [address] [place] MCH (RBC) [Entitic mass] 31.7 pg Normal 26.0-34.0 [facility] Comment on above: Order Comment: Speci men Type: BLOOD SPECIMENOrdering Facility: [facility] Address: [address] [place] [address] Performed By: #### 5 8410-2 ####[facility] LABIA [id number] [place] [address] [place] MCHC (RBC) [Mass/Vol] 30.3 g/dL Low 30.5-36.0 [facility] Comment on above: Order Comment: Speci men Type: BLOOD SPECIMENOrdering Facility: [facility] Address: [address] [place] [address] Performed By: #### 5 8410-2 ####[facility] LABIA [id number] [place] [address] [place] MCV (RBC) [Entitic vol] 104.6 fL High 80.0-100.0 [facility] Comment on above: Order Comment: Speci men Type: BLOOD SPECIMENOrdering Facility: [facility] Address: [address] [place] [address] Performed By: #### 5 8410-2 ####[facility] LABIA [id number] [place] [address] [place] Nucleated RBC (Bld) [#/Vol] 10*3/uL Normal <0.01 [facility] Comment on above: Order Comment: Speci men Type: BLOOD SPECIMENOrdering Facility: [facility] Address: [address] [place] [address] Performed By: #### 5 8410-2 ####[facility] LABCLIA [id number] [place] [address] [place] Platelet mean volume (Bld) [Entitic vol] 12.1 fL Normal 9.0-12.7 [facility] Comment on above: Order Comment: Speci men Type: BLOOD SPECIMENOrdering Facility: [facility] Address: [address] [place] [address] Performed By: #### 5 8410-2 ####[facility] LABCLIA [id number] [place] [address] [place] Platelets (Bld) [#/Vol] 135 10*3/uL Low 150-400 [facility] Comment on above: Order Comment: Speci men Type: BLOOD SPECIMENOrdering Facility: [facility] Address: [address] [place] [address] Performed By: #### 5 8410-2 ####[facility] LABCLIA [id number] [place] [address] [place] RBC (Bld) [#/Vol] 2.84 10*6/uL Low 4.20-6.00 [facility] Comment on above: Order Comment: Speci men Type: BLOOD SPECIMENOrdering Facility: [facility] Address: [address] [place] [address] Performed By: #### 5 8410-2 ####[facility] LABCLIA [id number] [place] [id number] [place] WBC (Bld) [#/Vol] 4.80 10*3/uL Normal 3.70-11.00 [facility] Comment on above: Order Comment: Speci men Type: BLOOD SPECIMENOrdering Facility: [facility] Address: [address] [place] [address] Performed By: #### 5 8410-2 ####[facility] LABCLIA [id number] [facility] [address] [place] [address] [place] CT ABD/PEL W IVCONon 025 CT ABD/PEL W IVCON Normal [facility] CT CHEST W IVCONon 5 CT CHEST W IVCON Normal [facility] Comprehensive metabolic 2000 panelon 10-18-2024 Albumin [Mass/Vol] 2.7 g/dL Low 3.9-4.9 [facility] Comment on above: Order Comment: Speci men Type: BLOOD SPECIMENOrdering Facility: [facility] Address: [address] [place] [address] Performed By: #### 2 4323-8, ####[facility] LABCLIA [id number] [address] [address] [place] ALP [Catalytic activity/Vol] 93 U/L Normal 38-113 [facility] Comment on above: Order Comment: Speci men Type: BLOOD SPECIMENOrdering Facility: [facility] Address: [address] [place] [address] Performed By: #### 2 4323-8, ####[facility] LABCLIA [id number] [address] [address] [place] ALT [Catalytic activity/Vol] 12 U/L Normal 10-54 [facility] Comment on above: Order Comment: Speci men Type: BLOOD SPECIMENOrdering Facility: [facility] Address: [address] [place] [address] Performed By: #### 2 4323-8, ####[facility] LABCLIA [id number] [address] [address] [place] Anion gap [Moles/Vol] 11 mmol/L Normal 8-15 [facility] Comment on above: Order Comment: Speci men Type: BLOOD SPECIMENOrdering Facility: [facility] Address: [address] [place] [address] Performed By: #### 2 432-8, ####[facility] LABCLIA [id number] [address] [place] [address] [place] AST [Catalytic activity/Vol] 23 U/L Normal 14-40 [facility] Comment on above: Order Comment: Speci men Type: BLOOD SPECIMENOrdering Facility: [facility] Address: [address] [place] [address] Performed By: #### 2 4328, ####[facility] LABCLIA [id number] [address] [address] [place] Bilirubin [Mass/Vol] 0.2 mg/dL Normal 0.2-1.3 [facility] Comment on above: Order Comment: Speci men Type: BLOOD SPECIMENOrdering Facility: [facility] Address: [address] [place] [address] Performed By: #### 2 4322-09, ####[facility] LABCLIA [id number] [address] [address] [place] Calcium [Mass/Vol] 7.8 mg/dL Low 8.5-10.2 [facility] Comment on above: Order Comment: Speci men Type: BLOOD SPECIMENOrdering Facility: [facility] Address: [address] [place], [place] [address] Performed By: #### 2 8, ####[facility] LABCLIA [id number] [address] [address] [place] Chloride [Moles/Vol] 103 mmol/L Normal 98-107 [facility] Comment on above: Order Comment: Speci men Type: BLOOD SPECIMENOrdering Facility: [facility] Address: [address] [place], [place] [address] Performed By: #### 2 4323-8, ####[facility] LABCLIA [id number] [address] [address] [place] CO2 [Moles/Vol] 21 mmol/L Low 22-30 [facility] Comment on above: Order Comment: Speci men Type: BLOOD SPECIMENOrdering Facility: [facility] Address: [address] [place] [address] Performed By: #### 2 4323-8, ####[facility] LABCLIA [id number] [place] [address] [place] Creatinine [Mass/Vol] 1.64 mg/dL High 0.73-1.22 [facility] Comment on above: Order Comment: Speci men Type: BLOOD SPECIMENOrdering Facility: [facility] Address: [address] [place] [address] Performed By: #### 2 4323-8, ####[facility] LABCLIA [id number] [place] [address] [place] eGFRcr SerPlBld CKD-EPI 2020 47 mL/min/1.73m??? Low >=60 [facility] Comment on above: Order Comment: Speci men Type: BLOOD SPECIMENOrdering Facility: [facility] Address: [address] [place] [address] Result Comment: Gurwinder mated Glomerular Filtration Rate [...] actual GFR. Performed By: #### 2 4323-8, ####[facility] LABCLIA [id number] [address] [address] [place] Glucose [Mass/Vol] 296 mg/dL High 74-99 [facility] Comment on above: Order Comment: Speci men Type: BLOOD SPECIMENOrdering Facility: [facility] Address: [address] [place] [id number] Result Comment: The [place] Diabetes Association (ADA) provides guidance for cutoff [...] Standards of Medical Care in Diabetes 2016, [place] [employer]. Diabetes Care. 2016.39(Suppl 1). Performed By: #### 2 4323-8, ####[facility] LABCLIA [id number] [place] [address] [place] Potassium [Moles/Vol] 4.6 mmol/L Normal 3.7-5.1 [facility] Comment on above: Order Comment: Speci men Type: BLOOD SPECIMENOrdering Facility: [facility] Address: [address] [place] [address] Performed By: #### 2 4322-, ####[facility] LABIA [id number] [place] [address] [place] Protein [Mass/Vol] 5.2 g/dL Low 6.3-8.0 [facility] Comment on above: Order Comment: Speci men Type: BLOOD SPECIMENOrdering Facility: [facility] Address: [address] [place] [address] Performed By: #### 2 4322-09, ####[facility] LABIA [id number] [place] [address] [place] Sodium [Moles/Vol] 135 mmol/L Low 136-144 [facility] Comment on above: Order Comment: Speci men Type: BLOOD SPECIMENOrdering Facility: [facility] Address: [address] [place], [place] [address] Performed By: #### 2 4323-8, ####[facility] LABIA [id number] [place] [address] [place] Urea nitrogen [Mass/Vol] 23 mg/dL Normal 9-24 [facility] Comment on above: Order Comment: Speci men Type: BLOOD SPECIMENOrdering Facility: [facility] Address: [address] [place] [address] Performed By: #### 2 4323-8, ####[facility] LABIA [id number] [place] [address] [place] Albumin [Mass/Vol] 2.8 g/dL Low 3.9-4.9 [facility] Comment on above: Order Comment: Speci men Type: BLOOD SPECIMENOrdering Facility: [facility] Address: [address] [place] [address] Performed By: #### 2 4323-8, 74580-4, ####[facility] LABIA [id number] [place] [address] [place] ALP [Catalytic activity/Vol] 132 U/L High 38-113 [facility] Comment on above: Order Comment: Speci men Type: BLOOD SPECIMENOrdering Facility: [facility] Address: [address] [place], [place] [address] Performed By: #### 2 4323-8, 79245-9, ####[facility] LABIA [id number] [address] [address] [place] ALT [Catalytic activity/Vol] 12 U/L Normal 10-54 [facility] Comment on above: Order Comment: Speci men Type: BLOOD SPECIMENOrdering Facility: [facility] Address: [address] [place], [place] [address] Performed By: #### 2 4323-8, 44050-0, ####[facility] LABCLIA [id number] [address] [address] [place] Anion gap [Moles/Vol] 12 mmol/L Normal 8-15 [facility] Comment on above: Order Comment: Speci men Type: BLOOD SPECIMENOrdering Facility: [facility] Address: [address] [place] [address] Performed By: #### 2 4323-8, 64728-6, ####[facility] LABCLIA [id number] [address] [address] [place] AST [Catalytic activity/Vol] 22 U/L Normal 14-40 [facility] Comment on above: Order Comment: Speci men Type: BLOOD SPECIMENOrdering Facility: [facility] Address: [address] [place] [address] Performed By: #### 2 4323-8, 62966-9, ####[facility] LABCLIA [id number] [address] [address] [place] Bilirubin [Mass/Vol] 0.2 mg/dL Normal 0.2-1.3 [facility] Comment on above: Order Comment: Speci men Type: BLOOD SPECIMENOrdering Facility: [facility] Address: [address] [place], [place] [address] Performed By: #### 2 4323-8, 96927-4, ####[facility] LABCLIA [id number] [address] [address] [place] Calcium [Mass/Vol] 8.1 mg/dL Low 8.5-10.2 [facility] Comment on above: Order Comment: Speci men Type: BLOOD SPECIMENOrdering Facility: [facility] Address: [address] [place], [place] [address] Performed By: #### 2 4323-8, 29824-5, ####[facility] LABCLIA [id number] [place] [address] [place] Chloride [Moles/Vol] 104 mmol/L Normal 98-107 [facility] Comment on above: Order Comment: Speci men Type: BLOOD SPECIMENOrdering Facility: [facility] Address: [address] [place] [address] Performed By: #### 2 4323-8, 78733-3, 34497-2 ####[facility] LABIA [id number] [place] [id number] [place] CO2 [Moles/Vol] 23 mmol/L Normal 22-30 [facility] Comment on above: Order Comment: Speci men Type: BLOOD SPECIMENOrdering Facility: [facility] Address: [address] [place] [address] Performed By: #### 2 4323-8, 02083-0, 35426-4 ####[facility] LABIA [id number] [place] [address] [place] Creatinine [Mass/Vol] 1.54 mg/dL High 0.73-1.22 [facility] Comment on above: Order Comment: Speci men Type: BLOOD SPECIMENOrdering Facility: [facility] Address: [address] [place] [address] Performed By: #### 2 4323-8, 57373-6, ####[facility] LABIA [id number] [place] [id number] [place] eGFRcr SerPlBld CKD-EPI 2020 51 mL/min/1.73m??? Low >=60 [facility] Comment on above: Order Comment: Speci men Type: BLOOD SPECIMENOrdering Facility: [facility] Address: [address] [place] [address] Result Comment: Gurwinder mated Glomerular Filtration Rate [...] actual GFR. Performed By: #### 2 4323-8, 46702-9, ####[facility] LABCLIA [id number] [facility] Healthy LabsDESK [id number], [place] [address] [place] Glucose [Mass/Vol] 164 mg/dL High 74-99 [facility] Comment on above: Order Comment: Gini nowak Type: BLOOD SPECIMENOrdering Facility: [facility] Address: [address] [place] [phone] Result Comment: The [place] Diabetes Association (ADA) provides guidance for cutoff [...] Standards of Medical Care in Diabetes 2016, [place] [employer]. Diabetes Care. 2016.39(Suppl 1). Performed By: #### 2 4323-8, 27882-5, ####[facility] LABCLIA [id number] [facility] [id number] [place] [address] [place] Potassium [Moles/Vol] 4.4 mmol/L Normal 3.7-5.1 [facility] Comment on above: Order Comment: Gini nowak Type: BLOOD SPECIMENOrdering Facility: [facility] Address: [address] [place] [address] Performed By: #### 2 4323-8, 94946-3, ####[facility] LABCLIA [id number] [address] [facility] HOSPITALL[facility] AVENU[id number] [address] [place] Protein [Mass/Vol] 5.3 g/dL Low 6.3-8.0 [facility] Comment on above: Order Comment: Speci men Type: BLOOD SPECIMENOrdering Facility: [facility] Address: [address] [place] [address] Performed By: #### 2 4323-8, 00526-0, ####[facility] LABCLIA [id number] [place] [id number] [place] Sodium [Moles/Vol] 139 mmol/L Normal 136-144 [facility] Comment on above: Order Comment: Speci men Type: BLOOD SPECIMENOrdering Facility: [facility] Address: [address] [place] [address] Performed By: #### 2 4323-8, 13206-5, ####[facility] LABCLIA [id number] [place] [address] [place] Urea nitrogen [Mass/Vol] 24 mg/dL Normal 9-24 [facility] Comment on above: Order Comment: Speci men Type: BLOOD SPECIMENOrdering Facility: [facility] Address: [address] [place] [address] Performed By: #### 2 4323-8, 72250-9, ####[facility] LABCLIA [id number] [place] [id number] [place] ECG COMPLETEon 10-18-2024 ECG COMPLETE Normal [facility] [id number] 10-18-2024 ECG01 Normal [facility] ECHO LIMITEDon 10-18-2024 ECHO LIMITED Normal [facility] Gas and Carbon monoxide pane l (BldV)on 10-18-2024 BASE DEFICIT, VENOUS >-1 Normal -2-0 [facility] Comment on above: Order Comment: Speci men Type: VENOUS BLOOD SPECIMENOrdering Facility: [facility] Address: [address] [place] [address] Performed By: #### 2 4344-4 ####[facility] LABCLIA [id number] [place] [address] [place] Body temperature 98.6 [degF] Normal [facility] Comment on above: Order Comment: Speci men Type: VENOUS BLOOD SPECIMENOrdering Facility: [facility] Address: [address] [place] [address] Performed By: #### 2 4344-4 ####[facility] LABCLIA [id number] [place] [address] [place] Calcium.ionized (Bld) [Mass/Vol] 1.15 mmol/L Normal 1.08-1.30 [facility] Comment on above: Order Comment: Speci men Type: VENOUS BLOOD SPECIMENOrdering Facility: [facility] Address: [address] [place] [address] Performed By: #### 2 4344-4 ####[facility] LABIA [id number] [place] [address] [place] Calcium.ionized adjusted to pH 7.4 (BldA) [Moles/Vol] 1.10 mmol/L Normal 1.08-1.30 [facility] Comment on above: Order Comment: Speci men Type: VENOUS BLOOD SPECIMENOrdering Facility: [facility] Address: [address] [place] [address] Performed By: #### 2 4344-4 ####[facility] LABIA [id number] [place] [address] [place] Carboxyhemoglobin (BldV) [Mass fraction] 0.9 % Normal 0.0-2.0 [facility] Comment on above: Order Comment: Speci men Type: VENOUS BLOOD SPECIMENOrdering Facility: [facility] Address: [address] [place] [address] Result Comment: Carb oxyhemoglobin Reference Range for Smokers: 2.0-8.0% Performed By: #### 2 4344-4 ####[facility] LABIA [id number] [id number], [place] [address] [place] CO2 (BldV) [Partial pressure] 53 mm[Hg] Normal 42-55 [facility] Comment on above: Order Comment: Speci men Type: VENOUS BLOOD SPECIMENOrdering Facility: [facility] Address: [address] [place] [address] Performed By: #### 2 4344-4 ####[facility] LABCLIA [id number] [place] [id number] [place] Glucose [Mass/Vol] 254 mg/dL High 60-105 [facility] Comment on above: Order Comment: Speci men Type: VENOUS BLOOD SPECIMENOrdering Facility: [facility] Address: [address] [place] [address] Performed By: #### 2 4344-4 ####[facility] LABCLIA [id number] [place] [id number] [place] HCO3 (Bld) [Moles/Vol] 26 mmol/L Normal 24-28 [facility] Comment on above: Order Comment: Speci men Type: VENOUS BLOOD SPECIMENOrdering Facility: [facility] Address: [address] [place] [address] Performed By: #### 2 4344-4 ####[facility] LABCLIA [id number] [place] [id number] [place] Hematocrit (Bld) [Volume fraction] 27.3 % Low 39.0-51.0 [facility] Comment on above: Order Comment: Speci men Type: VENOUS BLOOD SPECIMENOrdering Facility: [facility] Address: [address] [place], [place] [address] Performed By: #### 2 4344-4 ####[facility] LABCLIA [id number] [place] [id number] [place] Hemoglobin (Bld) [Mass/Vol] 8.8 g/dL Low 13.0-17.0 [facility] Comment on above: Order Comment: Speci men Type: VENOUS BLOOD SPECIMENOrdering Facility: [facility] Address: [address] [place] [id number] Performed By: #### 2 4344-4 ####[facility] LABCLIA [id number] [address] [address] [place] Lactate [Moles/Vol] 1.2 mmol/L Normal 0.5-2.2 [facility] Comment on above: Order Comment: Speci men Type: VENOUS BLOOD SPECIMENOrdering Facility: [facility] Address: [address] [place], [place] [address] Performed By: #### 2 4344-4 ####[facility] LABCLIA [id number] [place] [address] [place] LITERS 3 Liters/min Normal [facility] Comment on above: Order Comment: Speci men Type: VENOUS BLOOD SPECIMENOrdering Facility: [facility] Address: [address] [place], [place] [address] Performed By: #### 2 4344-4 ####[facility] LABCLIA [id number] [place] [address] [place] Methemoglobin (Bld) [Mass fraction] 1.3 % Normal 0.0-1.5 [facility] Comment on above: Order Comment: Speci men Type: VENOUS BLOOD SPECIMENOrdering Facility: [facility] Address: [address] [place], [place] [address] Performed By: #### 2 4344-4 ####[facility] LABCLIA [id number] [address] [address] [place] O2 THERAPY [place] = Nasal Cannula Normal [facility] Comment on above: Order Comment: Speci men Type: VENOUS BLOOD SPECIMENOrdering Facility: [facility] Address: [address] [place], [place] [address] Performed By: #### 2 4344-4 ####[facility] LABCLIA [id number] [place] [id number] [place] Oxygen (BldV) [Partial pressure] 30 mm[Hg] Low 35-45 [facility] Comment on above: Order Comment: Speci men Type: VENOUS BLOOD SPECIMENOrdering Facility: [facility] Address: [address] [place] [address] Performed By: #### 2 4344-4 ####[facility] LABCLIA [id number] [place] [id number] [place] Oxygen saturation in Venous blood 45 % Low 60-85 [facility] Comment on above: Order Comment: Speci men Type: VENOUS BLOOD SPECIMENOrdering Facility: [facility] Address: [address] [place] [address] Performed By: #### 2 4344-4 ####[facility] LABCLIA [id number] [place] [id number] [place] Oxyhemoglobin (BldV) [Mass fraction] 44 % Low 60-85 [facility] Comment on above: Order Comment: Speci men Type: VENOUS BLOOD SPECIMENOrdering Facility: [facility] Address: [address] [place], [place] [address] Performed By: #### 2 4344-4 ####[facility] LABCLIA [id number] [place] [address] [place] pH (BldV) 7.31 [pH] Low 7.32-7.42 [facility] Comment on above: Order Comment: Speci men Type: VENOUS BLOOD SPECIMENOrdering Facility: [facility] Address: [address] [place], [place] [address] Performed By: #### 2 4344-4 ####[facility] LABCLIA [id number] [place] [id number] [place] Potassium [Moles/Vol] 4.3 mmol/L Normal 3.5-5.0 [facility] Comment on above: Order Comment: Speci men Type: VENOUS BLOOD SPECIMENOrdering Facility: [facility] Address: [address] [place] [address] [place] [address] Performed By: #### 2 4344-4 ####[facility] LABCLIA [id number] [address] [address] [place] Sodium [Moles/Vol] 133 mmol/L Low 136-144 [facility] [facility] Comment on above: Order Comment: Speci men Type: VENOUS BLOOD SPECIMENOrdering Facility: [facility] Address: [address] [place] [address] Performed By: #### 2 4344-4 ####[facility] LABIA [id number] [address] [address] [place] HISTORY PHYSICALon HISTORY PHYSICAL Normal [facility] HbA1c (Bld)on 10-18-2024 Average glucose Estimated from glycated hemoglobin (Bld) [Mass/Vol] 186 mg/dL Normal [facility] Comment on above: Order Comment: Speci men Type: BLOOD SPECIMENOrdering Facility: [facility] Address: [address] [place] [address] Result Comment: eAG: (Estimated average glucose) is a calculated value from HgbA1c and is instruments sales representative of the average blood glucose level in the last 2-3 month period. Performed By: #### 5 5454-3 ####[facility] LABIA [id number] [address] [address] [place] HbA1c (Bld) [Mass fraction] 8.1 % High 4.3-5.6 [facility] Comment on above: Order Comment: Speci men Type: BLOOD SPECIMENOrdering Facility: [facility] Address: [address] [place] [address] Result Comment: [place] Diabetes Association guidelines indicate that patients with HgbA1c in the range 5.7-6.4% are at increased risk for development of diabetes, and intervention by lifestyle modification may be beneficial. HgbA1c greater or equal to 6.5% is considered diagnostic of diabetes. Performed By: #### 5 5454-3 ####[facility] LABCLIA [id number] [address] [address] [place] LDH SerPl-cCncon 10-18-2024 LDH [Catalytic activity/Vol] 354 U/L High 135-225 [facility] Comment on above: Order Comment: Speci men Type: BLOOD SPECIMENOrdering Facility: [facility] Address: [address] [place], [place] [address] Performed By: #### 2 532-0, 2777-1, 3015-3, ####[facility] LABCLIA [id number] [address] [address] [place] Magnesium SerPl-mCncon 10-18 Magnesium [Mass/Vol] 1.7 mg/dL Normal 1.7-2.3 [facility] Comment on above: Order Comment: Speci men Type: BLOOD SPECIMENOrdering Facility: [facility] Address: [address] [place] [address] Performed By: #### 2 532-0, 2777-1, 3015-3, ####[facility] LABIA [id number] [address] [address] [place] Magnesium [Mass/Vol] 1.7 mg/dL Normal 1.7-2.3 [facility] Comment on above: Order Comment: Speci men Type: BLOOD SPECIMENOrdering Facility: [facility] Address: [address] [place], [place] [address] Performed By: #### 2 4323-8, ####[facility] LABCLIA [id number] [address] [address] [place] Magnesium [Mass/Vol] 1.7 mg/dL Normal 1.7-2.3 [facility] Comment on above: Order Comment: Speci men Type: BLOOD SPECIMENOrdering Facility: [facility] Address: [address] [place], [place] [address] Performed By: #### 2 4323-8, 59025-6, ####[facility] LABCLIA [id number] [address] NT-proBNP [facility] 10-18 Natriuretic peptide.B prohormone N-Terminal [Mass/Vol] >11135 High <125 [facility] Comment on above: Order Comment: Speci men Type: BLOOD SPECIMENOrdering Facility: [facility] Address: [address] [place] [address] Performed By: #### 2 4323-8, 80356-6, ####[facility] [id number] [address] [place] PT panel Coag (PPP)on 2024 INR Coag (PPP) [Relative time] 1.3 {INR} Normal 0.9-1.3 [facility] Comment on above: Order Comment: Speci men Type: BLOOD SPECIMENOrdering Facility: [facility] Address: [address] [place] [address] Result Comment: Nettie min K Antagonist (VKA) Therapeutic Range: INR 2 to 3 (Target INR of 2.5)Note: For patients treated with VKA drugs, such as warfarin, the [place] [employer] 2012 Guideline recommends [...] al. Chest 2012, 141:7S-47SWilder JALLOH et al. [facility] 2017, 70: 252-289 Performed By: #### 3 4528-0, 00002-9 ####[facility] LABCLIA [id number] [place] [address] [place] PT Coag (PPP) [Time] 14.3 s High 9.7-13.0 [facility] Comment on above: Order Comment: Speci men Type: BLOOD SPECIMENOrdering Facility: [facility] Address: [address] [place] [address] Performed By: #### 3 4528-0, 68214-2 ####[facility] [id number] [address] [place] INR Coag (PPP) [Relative time] 1.4 {INR} High 0.9-1.3 [facility] Comment on above: Order Comment: Speci men Type: BLOOD SPECIMENOrdering Facility: [facility] Address: [address] [place] [address] Result Comment: Nettie min K Antagonist (VKA) Therapeutic Range: INR 2 to 3 (Target INR of 2.5)Note: For patients treated with VKA drugs, such as warfarin, the [place] [employer] 2012 Guideline recommends [...] 70: 252-289 Performed By: #### 3 4528-0 ####[facility] [id number] [place] [id number] [place] PT Coag (PPP) [Time] 14.7 s High 9.7-13.0 [facility] Comment on above: Order Comment: Speci men Type: BLOOD SPECIMENOrdering Facility: [facility] Address: [address] [place] [address] Performed By: #### 3 4528-0 ####[facility] LABIA [id number] [place] [address] [place] INR Coag (PPP) [Relative time] 1.3 {INR} Normal 0.9-1.3 [facility] Comment on above: Order Comment: Speci men Type: BLOOD SPECIMENOrdering Facility: [facility] Address: [address] [place] [address] Result Comment: Nettie min K Antagonist (VKA) Therapeutic Range: INR 2 to 3 (Target INR of 2.5)Note: For patients treated with VKA drugs, such as warfarin, the [place] [employer] 2012 Guideline recommends [...] al. Chest 2012, 141:7S-47SNishfelicia RA, et al. [facility] 2017, 70: 252-289 Performed By: #### 3 4528-0 ####[facility] LABCLIA [id number] [place] [id number] [place] PT Coag (PPP) [Time] 14.0 s High 9.7-13.0 [facility] Comment on above: Order Comment: Speci men Type: BLOOD SPECIMENOrdering Facility: [facility] Address: [address] [place] [address] Performed By: #### 3 4528-0 ####[facility] LABCLIA [id number] [address] [address] [place] Phosphate SerPl-mCncon 10-18 Phosphate [Mass/Vol] 3.5 mg/dL Normal 2.7-4.8 [facility] Comment on above: Order Comment: Speci men Type: BLOOD SPECIMENOrdering Facility: [facility] Address: [address] [place] [address] Performed By: #### 2 532-0, 2777-1, 3016-3, 41351-9 ####[facility] LABCLIA [id number] [place] [id number] [place] THERAPY NTon 10-18-2024 THERAPY NT Normal [facility] TSH SerPl-aCncon 10-18-2024 TSH Qn 4.370 m[IU]/L High 0.270-4.200 [facility] Comment on above: Order Comment: Speci men Type: BLOOD SPECIMENOrdering Facility: [facility] Address: [address] [place] [address] Performed By: #### 2 532-0, 2777-1, 6-3, ####[facility] LABCLIA [id number] [place] [address] [place] TYPE + SCREENon 10-18-2024 ABO O Normal [facility] Comment on above: Order Comment: Speci men Type: BLOOD SPECIMENOrdering Facility: [facility] Address: [address] [place] [address] Performed By: #### T SCR ####[facility] BANKCLIA [id number] [place] [address] [place] Rh Nom (Bld) Negative Normal [facility] Comment on above: Order Comment: Speci men Type: BLOOD SPECIMENOrdering Facility: [facility] Address: [address] [place] [address] Performed By: #### T SCR ####[facility] BLOOD BANKCLIA [id number] [place] [id number] [place] TYPE AND SCREEN EXPIRATION 10/21/2024 23:59 Normal [facility] Comment on above: Order Comment: Speci men Type: BLOOD SPECIMENOrdering Facility: [facility] Address: [address] [place] [address] Performed By: #### T SCR ####[facility] BLOOD BANKCLIA [id number] [place] [address] [place] XR CHEST 1V FRONTAL PORTon 0 10-18-2024 XR CHEST 1V FRONTAL PORT Normal [facility] XR CHEST 1V FRONTAL PORT Normal [facility] aPTT PPPon 10-18-2024 aPTT Coag (PPP) [Time] 35.3 s High 23.0-32.4 Cl [facility] Comment on above: Order Comment: Speci men Type: BLOOD SPECIMENOrdering Facility: [facility] Address: [address] [place] [address] Performed By: #### 3 4528-0, 84448-6 ####[facility] LABCLIA [id number] [place] [address] [place] HISTORY PHYSICALon HISTORY PHYSICAL Normal [facility] Absolute lymphocyte countOrd ered By: Perez Ribeiro on 10-12-2024 Lymphocytes Auto (Unsp spec) [#/Vol] 0.94 10*3/uL 0.83-4.[address] [facility] Activated partial thrombopla stin time (aPTT) in platelet poor plasma by coagulation aOrdered By: Perez Ribeiro on 10-12-2024 aPTT Coag (PPP) [Time] 29.0 s 24.1-36.2 [facility] Anion gap in Serum or Plasma Ordered By: Perez Ribeiro on 10-12-2024 Anion gap [Moles/Vol] 11 mmol/L 5-15 [facility] Automated lymphocyte count a s percentage of total leukocytesOrdered By: Perez Ribeiro on 10-12-2024 Lymphocytes/100 WBC Auto (Unsp spec) 20.8 % 19-[address] [facility] BUN/creatinine ratioOrdered By: Perez Ribeiro on 10-12-2024 Urea nitrogen/Creatinine [Mass ratio] 10.7 mg/mg 10-[address] [facility] Basophil percentageOrdered B y: Perez Ribeiro on 10-12-2024 Basophils/100 WBC (Bld) 2.0 % High 0-1 [facility] Carbon dioxide, total [Moles /volume] in Central venous bloodOrdered By: Perez Ribeiro on 10-12-2024 CO2 [Moles/Vol] 22.2 mmol/L 21.0-32.[address] [facility] Chloride assayOrdered By: Prosper Ribeiro on 10-12-2024 Chloride [Moles/Vol] 106 mmol/L 98-108 [facility] Eosinophil percentageOrdered By: Perez Ribeiro on 10-12-2024 Eosinophils/100 WBC (Bld) 1.5 % 0-[address] [facility] Erythrocyte distribution wid th ratioOrdered By: Perez Ribeiro on 10-12-2024 Erythrocyte distribution width (RBC) [Ratio] 16.7 % High 11.6-14.[address] [facility] Erythrocyte distribution wid th standard deviationOrdered By: Perez Ribeiro on 10-12-2024 Erythrocyte distribution width (RBC) [Ratio] 62.1 fl High 35.1-43.[address] [facility] Glomerular filtration rate ( GFR) estimation/1.73 sq m using serum, plasma, or whole bOrdered By: Perez Ribeiro on 10-12-2024 GFR/1.73 sq M.predicted among non-blacks MDRD (S/P/Bld) [Vol rate/Area] 79 mL/min/{1.73_m2} >[address] [facility] Hematocrit Auto (Bld) [Volum e fraction]Ordered By: Perez Ribeiro on 10-12-2024 Hematocrit (Bld) [Volume fraction] 34.4 % Low 40-[address] [facility] Hemoglobin measurementOrdere d By: Perez Ribeiro on 10-12-2024 Hemoglobin (Bld) [Mass/Vol] 11.0 g/dL Low 13.0-16.[address] [facility] Immature granulocytes/100 WB C Auto (Bld)Ordered By: Perez Ribeiro on 09-04-2025 Immature granulocytes/100 WBC (Bld) 0.400 % 0.0-0.[address] [facility] MCV (mean corpuscular volume ) determinationOrdered By: Perez Ribeiro on 10-12-2024 MCV (RBC) [Entitic vol] 100.3 fL High 80-94 [facility] Mean corpuscular hemoglobin (MCH) determinationOrdered By: Perez Ribeiro on 10-12-2024 MCH (RBC) [Entitic mass] 32.1 pg High 27.0-32.[address] [facility] Monocyte percentageOrdered B y: Perez Ribeiro on 10-12-2024 Monocytes/100 WBC (Bld) 9.5 % 0-10 [facility] Natriuretic peptide.B prohor irene N-Terminal [Mass/volume] in Serum or PlasmaOrdered By: Perez Ribeiro on 10-12-2024 Natriuretic peptide.B prohormone N-Terminal [Mass/Vol] 71280 pg/mL High <[address] [facility] Neutrophil percentageOrdered By: Perez Ribeiro on 10-12-2024 Neutrophils/100 WBC (Bld) 65.8 % 47-[address] [facility] Platelet countOrdered By: Prosper Ribeiro on 10-12-2024 Platelets (Bld) [#/Vol] 152 10*3/uL 150-[address] [facility] Potassium measurement (mass/ volume)Ordered By: Perez Riebiro on 10-12-2024 Potassium (Unsp spec) [Mass/Vol] 3.7 mmol/L 3.3-5.[address] [facility] Prothrombin timeOrdered By: Perez Ribeiro on 10-12-2024 PT Coag (PPP) [Time] 17.4 s High 11.7-14.9 [facility] RBC Auto (Bld) [#/Vol]Ordere d By: Perez iRbeiro on 10-12-2024 RBC (Bld) [#/Vol] 3.43 10*6/uL Low 4.6-6.2 [facility] Serum creatinine measurement (mass/volume)Ordered By: Perez Ribeiro on 10-12-2024 Creatinine [Mass/Vol] 1.06 mg/dL 0.70-1.20 [facility] Serum glucose measurement (m ass/volume)Ordered By: Perez Ribeiro on 10-12-2024 Glucose [Mass/Vol] 241 mg/dL High 70-99 [facility] Serum or plasma calcium luciana urement (mass/volume)Ordered By: Perez Ribeiro on 10-12-2024 Calcium [Mass/Vol] 8.9 mg/dL 7.6-11.0 [facility] Serum or plasma urea nitroge n measurement (mass/volume)Ordered By: Perez Ribeiro on 10-12-2024 Urea nitrogen [Mass/Vol] 11 mg/dL 4-[address] [facility] Sodium levelOrdered By: Beto Ribeiro on 10-12-2024 Sodium [Moles/Vol] 140 mmol/L 133-145 [facility] Troponin T.cardiac [Mass/vol ume] in Serum or Plasma by High sensitivity methodOrdered By: Perez Ribeiro on 10-12-2024 Troponin T.cardiac High sensitivity method [Mass/Vol] 83 ng/L High <[address] [facility] Troponin T.cardiac High sensitivity method [Mass/Vol] 91 ng/L High <[address] [facility] Troponin T.cardiac High sensitivity method [Mass/Vol] 105 ng/L High <[address] [facility] White blood cell (WBC) count Ordered By: Perez Ribeiro on 10-12-2024 WBC (Bld) [#/Vol] 4.5 10*3/uL 4.4-11.0 [facility] Absolute lymphocyte countOrd ered By: Rafaela Welch on 10-06-2024 Lymphocytes Auto (Unsp spec) [#/Vol] 0.81 10*3/uL Low 0.83-4.[address] [facility] Anion gap in Serum or Plasma Ordered By: Rafaela Welch on 10-06-2024 Anion gap [Moles/Vol] 10 mmol/L 5-15 [facility] Automated lymphocyte count a s percentage of total leukocytesOrdered By: Rafaela Welch on 10-06-2024 Lymphocytes/100 WBC Auto (Unsp spec) 16.0 % Low 19-[address] [facility] BUN/creatinine ratioOrdered By: Rafaela Weclh on 10-06-2024 Urea nitrogen/Creatinine [Mass ratio] 8.8 mg/mg Low 10-[address] [facility] Basophil percentageOrdered B y: Rafaela Welch on 10-06-2024 Basophils/100 WBC (Bld) 1.4 % High 0-1 [facility] Bilirubin directOrdered By: Rafaela Welch on 10-06-2024 Bilirubin.direct [Mass/Vol] 0.21 mg/dL 0.00-0.[address] [facility] Bilirubin, totalOrdered By: Rafaela Welch on 10-06-2024 Bilirubin [Mass/Vol] 0.42 mg/dL 0.00-1.30 [facility] Carbon dioxide, total [Moles /volume] in Central venous bloodOrdered By: Rafaela Welch on 10-06-2024 CO2 [Moles/Vol] 21.6 mmol/L 21.0-32.[address] [facility] Chloride assayOrdered By: Rosaura Welch on 10-06-2024 Chloride [Moles/Vol] 108 mmol/L 98-108 [facility] Eosinophil percentageOrdered By: Rafaela Welch on 10-06-2024 Eosinophils/100 WBC (Bld) 1.6 % 0-[address] [facility] Erythrocyte distribution wid th ratioOrdered By: Rafaela Welch on 10-06-2024 Erythrocyte distribution width (RBC) [Ratio] 16.4 % High 11.6-14.[address] [facility] Erythrocyte distribution wid th standard deviationOrdered By: Rafaela Welch on 10-06-2024 Erythrocyte distribution width (RBC) [Ratio] 62.4 fl High 35.1-43.[address] [facility] Glomerular filtration rate ( GFR) estimation/1.73 sq m using serum, plasma, or whole bOrdered By: Rafaela Welch on 10-06-2024 GFR/1.73 sq M.predicted among non-blacks MDRD (S/P/Bld) [Vol rate/Area] 80 mL/min/{1.73_m2} >[address] [facility] Hematocrit Auto (Bld) [Volum e fraction]Ordered By: Rafaela Welch on 10-06-2024 Hematocrit (Bld) [Volume fraction] 34.4 % Low 40-[address] [facility] Hemoglobin measurementOrdere d By: Rafaela Welch on 10-06-2024 Hemoglobin (Bld) [Mass/Vol] 10.9 g/dL Low 13.0-16.[address] [facility] Immature granulocytes/100 WB C Auto (Bld)Ordered By: Rafaela Welch on 10-06-2024 Immature granulocytes/100 WBC (Bld) 0.400 % 0.0-0.[address] [facility] MCV (mean corpuscular volume ) determinationOrdered By: Rafaela Welch on 10-06-2024 MCV (RBC) [Entitic vol] 103.3 fL High 80-94 [facility] Mean corpuscular hemoglobin (MCH) determinationOrdered By: Rafaela Welch on 10-06-2024 MCH (RBC) [Entitic mass] 32.7 pg High 27.0-32.[address] [facility] Monocyte percentageOrdered B y: Rafaela Welch on 10-06-2024 Monocytes/100 WBC (Bld) 6.1 % 0-10 [facility] Neutrophil percentageOrdered By: Rafaela Welch on 10-06-2024 Neutrophils/100 WBC (Bld) 74.5 % High 47-[address] [facility] No Panel InformationOrdered By: Rafaela Welch on 10-06-2024 20 U/L <[address] [facility] Platelet countOrdered By: Rosaura Welch on 10-06-2024 Platelets (Bld) [#/Vol] 140 10*3/uL Low 150-[address] [facility] Potassium measurement (mass/ volume)Ordered By: Rafaela Welch on 10-06-2024 Potassium (Unsp spec) [Mass/Vol] 3.8 mmol/L 3.3-5.[address] [facility] Prothrombin timeOrdered By: Rafaela Welch on 10-06-2024 PT Coag (PPP) [Time] 16.5 s High 11.7-14.9 [facility] RBC Auto (Bld) [#/Vol]Ordere d By: Rafaela Welch on 10-06-2024 RBC (Bld) [#/Vol] 3.33 10*6/uL Low 4.6-6.2 [facility] Serum creatinine measurement (mass/volume)Ordered By: Rafaela Welch on 10-06-2024 Creatinine [Mass/Vol] 1.05 mg/dL 0.70-1.20 [facility] Serum globulin measurementOr dered By: Rafaela Welch on 10-06-2024 Globulin (S) [Mass/Vol] 2.9 g/dL 2.2-4.[address] [facility] Serum glucose measurement (m ass/volume)Ordered By: Rafaela Welch on 10-06-2024 Glucose [Mass/Vol] 279 mg/dL High 70-99 [facility] Serum or plasma alanine padilla otransferase (ALT) measurementOrdered By: Rafaela Welch on 10-06-2024 ALT [Catalytic activity/Vol] 12 U/L <[address] [facility] Serum or plasma albumin luciana urement (mass/volume)Ordered By: Rafaela Welch on 10-06-2024 Albumin [Mass/Vol] 3.2 g/dL Low 3.4-4.8 [facility] Serum or plasma alkaline nolan sphatase measurementOrdered By: Rafaela Welch on 10-06-2024 ALP [Catalytic activity/Vol] 111 U/L 40-[address] [facility] Serum or plasma calcium luciana urement (mass/volume)Ordered By: Rafaela Welch on 10-06-2024 Calcium [Mass/Vol] 8.7 mg/dL 7.6-11.0 [facility] Serum or plasma urea nitroge n measurement (mass/volume)Ordered By: Rafaela Welch on 10-06-2024 Urea nitrogen [Mass/Vol] 9 mg/dL 4-[address] [facility] Sodium levelOrdered By: Rafaela Welch on 10-06-2024 Sodium [Moles/Vol] 140 mmol/L 133-145 [facility] Total proteinOrdered By: Indira Welch on 10-06-2024 Protein [Mass/Vol] 6.1 g/dL 5.9-8.4 [facility] White blood cell (WBC) count Ordered By: Rafaela Welch on 10-06-2024 WBC (Bld) [#/Vol] 5.1 10*3/uL 4.4-11.0 [facility] Absolute lymphocyte countOrd ered By: Lucas Frausto on 09-04-2024 Lymphocytes Auto (Unsp spec) [#/Vol] 1.20 10*3/uL 0.83-4.[address] [facility] Anion gap in Serum or Plasma Ordered By: Lucas Frausto on 09-04-2024 Anion gap [Moles/Vol] 10 mmol/L 5-15 [facility] Automated lymphocyte count a s percentage of total leukocytesOrdered By: Lucas Frausto on 09-04-2024 Lymphocytes/100 WBC Auto (Unsp spec) 21.2 % 19-[address] [facility] BUN/creatinine ratioOrdered By: Lucas Frausto on 09-04-2024 Urea nitrogen/Creatinine [Mass ratio] 15.4 mg/mg 10-[address] [facility] Basophil percentageOrdered B y: Lucas Frausto on 09-04-2024 Basophils/100 WBC (Bld) 1.4 % High 0-1 [facility] Blood manual differential co mment interpretation (narrative result)Ordered By: Lucas Frausto on 09-04-2024 Manual differential comment Jose Carlos (Bld) [Interp] SCANNED [facility] Carbon dioxide, total [Moles /volume] in Central venous bloodOrdered By: Lucas Frausto on 09-04-2024 CO2 [Moles/Vol] 21.3 mmol/L 21.0-32.[address] [facility] Chloride assayOrdered By: Celi Frausto on 09-04-2024 Chloride [Moles/Vol] 105 mmol/L 98-108 [facility] Eosinophil percentageOrdered By: Lucas Frausto on 09-04-2024 Eosinophils/100 WBC (Bld) 1.6 % 0-[address] [facility] Erythrocyte distribution wid th ratioOrdered By: Lucas Frausto on 09-04-2024 Erythrocyte distribution width (RBC) [Ratio] 14.4 % 11.6-14.[address] [facility] Erythrocyte distribution wid th standard deviationOrdered By: Lucas Frausto on 09-04-2024 Erythrocyte distribution width (RBC) [Ratio] 55.8 fl High 35.1-43.[address] [facility] Glomerular filtration rate ( GFR) estimation/1.73 sq m using serum, plasma, or whole bOrdered By: Lucas Frausto on 09-04-2024 GFR/1.73 sq M.predicted among non-blacks MDRD (S/P/Bld) [Vol rate/Area] 51 mL/min/{1.73_m2} Low >[address] [facility] deOrdered By: Lucas Frausto on 09-04-2024 Glucose [Mass/Vol] 159 mg/dL High 74-106 [facility] Hematocrit Auto (Bld) [Volum e fraction]Ordered By: Lucas Frausto on 09-04-2024 Hematocrit (Bld) [Volume fraction] 27.8 % Low 40-[address] [facility] Hemoglobin measurementOrdere d By: Lucas Frausto on 09-04-2024 Hemoglobin (Bld) [Mass/Vol] 8.7 g/dL Low 13.0-16.[address] [facility] Immature granulocytes/100 WB C Auto (Bld)Ordered By: Lucas Frausto on 09-04-2024 Immature granulocytes/100 WBC (Bld) 0.500 % 0.0-0.[address] [facility] MCV (mean corpuscular volume ) determinationOrdered By: Lucas Frausto on 09-04-2024 MCV (RBC) [Entitic vol] 106.1 fL High 80-94 [facility] Mean corpuscular hemoglobin (MCH) determinationOrdered By: Lucas Frausto on 09-04-2024 MCH (RBC) [Entitic mass] 33.2 pg High 27.0-32.[address] [facility] Monocyte percentageOrdered B y: Lucas Frausto on 09-04-2024 Monocytes/100 WBC (Bld) 9.5 % 0-10 [facility] Neutrophil percentageOrdered By: Lucas Frausto on 09-04-2024 Neutrophils/100 WBC (Bld) 65.8 % 47-[address] [facility] Platelet countOrdered By: Celi Frausto on 09-04-2024 Platelets (Bld) [#/Vol] 184 10*3/uL 150-[address] [facility] Potassium measurement (mass/ volume)Ordered By: Lucas Frausto on 09-04-2024 Potassium (Unsp spec) [Mass/Vol] 5.8 mmol/L High 3.3-5.[address] [facility] RBC Auto (Bld) [#/Vol]Ordere d By: Lucas Frausto on 09-04-2024 RBC (Bld) [#/Vol] 2.62 10*6/uL Low 4.6-6.2 [facility] SURG PATH REQUESTon 09-05-19 Case Report Normal [facility] [facility] Comment on above: Result Comment: Surg ical Pathology Report Case: [id number] Authorizing Provider: Barry Sheehan DO Collected: 09/04/2024 01:45 PM Ordering Location[facility] Received: 09/05/2024 05:09 PM [place] Pathologist: Consuelo Noland MD Specimen: SURG PATH Performed By: #### S URGP #### [facility] (DEFAULT) [address] [place] [address] Clinical History Preop Diagnoses: Cirrhosis. 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 Recent pertinent laboratory data: 09/02/2024, ALT 13, AST 23, Alk Phos 141, TBili 0.17, Remaining lab results not available. Normal [facility] Comment on above: Performed By: #### S URGP #### [facility] (DEFAULT) [address] [place] [address] Diagnosis Comments Normal [facility] Comment on above: Result Comment: Ther e [...] images. Performed By: #### S URGP #### [facility] (DEFAULT) [address] [place] [address] Gross Description Normal [facility] Comment on above: Result Comment: The specimen is received in one properly labeled container with the patient's name and accession number. A. The specimen is designated liver bx and consists of three hernandes-yellow soft tissue cores measuring in length ranging from 2.1 cm up to 2.2 cm, with an average diameter of 0.1 cm. TE 2 Lab Use Only: JobID [id number] Grosser for this case was: Diana Livingston Performed By: #### S URGP #### [facility] (DEFAULT) [address] [place] [address] Microscopic Description Normal [facility] Comment on above: Result Comment: A mi croscopic examination was performed. Trichrome stain, and CK7 and GS immunostains performed on tissue blocks A1 and A2. All controls show appropriate reactivity. All immunohistochemistry (IHC), in situ hybridization (GINA), and histochemical tests were developed by and are performed at the [facility] Clinical Laboratory, Histology and IHC Lab, [address] [place] [address]. All Immunofluorescent (IF) tests were developed by and are performed at the [facility] Clinical Laboratory, Renal Division, [address] [place] [address]. All tests reported here, except for PD-L1, have not been cleared by or approved by the [place] Food and Drug Administration (FDA). The laboratory is regulated under CLIA as qualified to perform high-complexity testing. The tests are used for clinical purposes. They should not be regarded as investigational or for research. 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 at 2203 EDT Performed By: #### S URGP #### [facility] (DEFAULT) [address] [address] Professional Interpretation Performed at: [facility] Comment on above: Result Comment: Prof essional interpretation performed remotely at a secondary location, address on file. For Immediate Release to [facility] Yes Performed By: #### S URGP #### [facility] (DEFAULT) [address] [address] Serum creatinine measurement (mass/volume)Ordered By: Lucas Frausto on 09-04-2024 Creatinine [Mass/Vol] 1.53 mg/dL High 0.70-1.20 [facility] Serum glucose measurement (m ass/volume)Ordered By: Lucas Frausto on 09-04-2024 Glucose [Mass/Vol] 110 mg/dL High 70-99 [facility] Serum or plasma calcium luciana urement (mass/volume)Ordered By: Lucas Frausto on 09-04-2024 Calcium [Mass/Vol] 8.6 mg/dL 7.6-11.0 [facility] Serum or plasma urea nitroge n measurement (mass/volume)Ordered By: Lucas Frausto on 09-04-2024 Urea nitrogen [Mass/Vol] 24 mg/dL High 4-[address] [facility] Sodium levelOrdered By: Tone Frausto on 09-04-2024 Sodium [Moles/Vol] 136 mmol/L 133-145 [facility] White blood cell (WBC) count Ordered By: Lucas Frausto on 09-04-2024 WBC (Bld) [#/Vol] 5.7 10*3/uL 4.4-11.0 [facility] Bilirubin, totalOrdered By: Lucas Frausto on 09-02-2024 Bilirubin [Mass/Vol] 0.17 mg/dL 0.00-1.30 [facility] No Panel InformationOrdered By: Lucas Frausto on 09-02-2024 23 U/L <[address] [facility] Serum globulin measurementOr dered By: Lucas Frausto on 09-02-2024 Globulin (S) [Mass/Vol] 2.8 g/dL 2.2-4.[address] [facility] Serum or plasma alanine padilla otransferase (ALT) measurementOrdered By: Lucas Frausto on 09-02-2024 ALT [Catalytic activity/Vol] 13 U/L <[address] [facility] Serum or plasma albumin luciana urement (mass/volume)Ordered By: Lucas Frausto on 09-02-2024 Albumin [Mass/Vol] 2.7 g/dL Low 3.4-4.8 [facility] Serum or plasma albumin/glob ulin mass ratioOrdered By: Lucas Frausto on 09-02-2024 Albumin/Globulin [Mass ratio] 1.0 {ratio} 0.9-2.[address] [facility] Serum or plasma alkaline nolan sphatase measurementOrdered By: Lucas Frausto on 09-02-2024 ALP [Catalytic activity/Vol] 141 U/L High 40-[address] [facility] Total proteinOrdered By: Silvestre Frausto on 09-02-2024 Protein [Mass/Vol] 5.5 g/dL Low 5.9-8.4 [facility] Activated partial thrombopla stin time (aPTT) in platelet poor plasma by coagulation aOrdered By: Barry Sheehan on 09-01-2024 aPTT Coag (PPP) [Time] 27.5 s 24.1-36.2 [facility] Amylase body fluidOrdered By : Barry Sheehan on 09-01-2024 Amylase (Body fld) [Catalytic activity/Vol] 16 U/L . [facility] Anaerobic cultureOrdered By: Barry Sheehan on 09-01-2024 Bacteria identified Anaer cx Nom (Unsp spec) No growth in [address] [facility] Body fluid albumin measureme nt by colorimetric method (mass/volume)Ordered By: Barry Sheehan on 09-01-2024 Albumin Ql (Body fld) 0.4 g/dL Not Estab. [facility] Body fluid appearance (nomin al result)Ordered By: Barry Sheehan on 09-01-2024 Appearance (Body fld) SL CLDY [facility] Body fluid color determinati onOrdered By: Barry Sheehan on 09-01-2024 Color (Body fld) PINK [facility] Body fluid cultureOrdered By : Barry Sheehan on 09-01-2024 Microbial culture, body fluid Culture exhibits no growth. [facility] Body fluid leukocytes count (number/volume)Ordered By: Barry Sheehan on 09-01-2024 WBC (Body fld) [#/Vol] 0.156 10*3/uL [facility] Body fluid lymphocytes/100 l eukocytesOrdered By: Barry Sheehan on 09-01-2024 Lymphocytes/100 WBC (Body fld) 36 % [facility] Body fluid macrophage countO rdered By: Barry Sheehan on 09-01-2024 Macrophages (Body fld) [#/Vol] 19 % [facility] Body fluid mononuclear cell percentageOrdered By: Barry Sheehan on 09-01-2024 Mononuclear cells/100 WBC (Body fld) 73.1 % [facility] Body fluid protein measureme nt (mass/volume)Ordered By: Barry Sheehan on 09-01-2024 Protein (Body fld) [Mass/Vol] 0.9 g/dL Not Establ. [facility] Body fluid segmented neutrop hils count (number/volume)Ordered By: Barry Sheehan on 09-01-2024 Segmented neutrophils (Body fld) [#/Vol] 38 % [facility] Body fluid total cell countO rdered By: Barry Sheehan on 09-01-2024 Cells Counted Total (Body fld) [#] 0.169 10^3/ul [facility] Cytology report of Body flui d Cyto stainOrdered By: Barry Sheehan on 09-01-2024 Cytology report Cyto stain Doc (Body fld) SEE PATHOLOGY REPORT [facility] Gram stainOrdered By: Barry Sheehan on 09-01-2024 Microscopic observation Gram stain Nom (Unsp spec) [facility] Monocyte detectionOrdered By : Barry Sheehan on 09-01-2024 Monocytes/100 WBC (Bld) 7 % [facility] No Panel InformationOrdered By: Barry Sheehan on 09-01-2024 5085 /mm3 [facility] SEE COMMENT [facility] Pathologist interpretation o f Body fluid testsOrdered By: Barry Sheehan on 09-01-2024 Pathologist interpretation (Body fld) [Interp] Reviewed [facility] Prothrombin timeOrdered By: Barry Sheehan on 09-01-2024 PT Coag (PPP) [Time] 15.6 s High 11.7-14.9 [facility] Specimen source identificati on of body fluidOrdered By: Barry Sheehan on 09-01-2024 Specimen source Nom (Body fld) ASCITES FLUID [facility] Platelet estimateOrdered By: Lucas Frausto on 08-31-2024 Platelets LM Ql (Bld) A ADEQ [facility] Body fluid lactate dehydroge nase measurement (enzymatic activity/volume) by pyruvateOrdered By: Lucas Frausto on 08-30-2024 LDH Pyruvate to lactate reaction (Body fld) [Catalytic activity/Vol] 84 Units/L Not Establ. [facility] Body fluid mesothelial cell percentageOrdered By: Lucas Frausto on 08-30-2024 Mesothelial cells/100 WBC (Body fld) 6 % [facility] Absolute lymphocyte countOrd ered By: Vinh Lomeli on 08-28-2024 Lymphocytes Auto (Unsp spec) [#/Vol] 1.03 10*3/uL 0.83-4.[address] [facility] Anion gap in Serum or Plasma Ordered By: Vinh Lomeli on 08-28-2024 Anion gap [Moles/Vol] 13 mmol/L 5-15 [facility] Automated lymphocyte count a s percentage of total leukocytesOrdered By: Vinh Lomeli on 08-28-2024 Lymphocytes/100 WBC Auto (Unsp spec) 21.3 % 19-[address] [facility] BUN/creatinine ratioOrdered By: Vinh Lomeli on 08-28-2024 Urea nitrogen/Creatinine [Mass ratio] 7.3 mg/mg Low 10-[address] [facility] Basophil percentageOrdered B y: Vinh Lomeli on 08-28-2024 Basophils/100 WBC (Bld) 1.2 % High 0-1 [facility] Bilirubin Test strip Ql (U)O rdered By: Vinh Lomeli on 08-28-2024 Bilirubin Ql (U) Negative Negative [facility] Carbon dioxide, total [Moles /volume] in Central venous bloodOrdered By: Vinh Lomeli on 08-28-2024 CO2 [Moles/Vol] 21.9 mmol/L 21.0-32.[address] [facility] Chloride assayOrdered By: Garfield Lomeli on 08-28-2024 Chloride [Moles/Vol] 102 mmol/L 98-108 [facility] Eosinophil percentageOrdered By: Vinh Lomeli on 08-28-2024 Eosinophils/100 WBC (Bld) 1.4 % 0-[address] [facility] Erythrocyte distribution wid th ratioOrdered By: Vinh Lomeli on 08-28-2024 Erythrocyte distribution width (RBC) [Ratio] 13.8 % 11.6-14.[address] [facility] Erythrocyte distribution wid th standard deviationOrdered By: Vinh Lomeli on 08-28-2024 Erythrocyte distribution width (RBC) [Ratio] 53.1 fl High 35.1-43.[address] [facility] Glomerular filtration rate ( GFR) estimation/1.73 sq m using serum, plasma, or whole bOrdered By: Vinh Lomeli on 08-28-2024 GFR/1.73 sq M.predicted among non-blacks MDRD (S/P/Bld) [Vol rate/Area] 76 mL/min/{1.73_m2} >[address] [facility] Hematocrit Auto (Bld) [Volum e fraction]Ordered By: Vinh Lomeli on 08-28-2024 Hematocrit (Bld) [Volume fraction] 31.6 % Low 40-[address] [facility] Hemoglobin measurementOrdere d By: Vinh Lomeli on 08-28-2024 Hemoglobin (Bld) [Mass/Vol] 10.1 g/dL Low 13.0-16.[address] [facility] Immature granulocytes/100 WB C Auto (Bld)Ordered By: Vinh Lomeli on 08-28-2024 Immature granulocytes/100 WBC (Bld) 0.200 % 0.0-0.[address] [facility] Ketones Test strip Ql (U)Ord ered By: Vinh Lomeli on 08-28-2024 Ketones Ql (U) Negative Negative [facility] MCV (mean corpuscular volume ) determinationOrdered By: Vinh Lomeli on 08-28-2024 MCV (RBC) [Entitic vol] 105.3 fL High 80-94 [facility] Mean corpuscular hemoglobin (MCH) determinationOrdered By: Vinh Lomeli on 08-28-2024 MCH (RBC) [Entitic mass] 33.7 pg High 27.0-32.[address] [facility] Monocyte percentageOrdered B y: Vihn Lomeli on 08-28-2024 Monocytes/100 WBC (Bld) 7.6 % 0-10 [facility] Mucus LM Ql (Urine sed)Order ed By: Vinh Lomeli on 08-28-2024 Mucus Ql (Urine sed) 0 SEEN /hpf [facility] Neutrophil percentageOrdered By: Vinh Lomeli on 08-28-2024 Neutrophils/100 WBC (Bld) 68.3 % 47-[address] [facility] Nitrite Test strip Ql (U)Ord ered By: Vinh Lomeli on 08-28-2024 Nitrite Ql (U) Negative Negative [facility] Platelet countOrdered By: Garfield Lomeli on 08-28-2024 Platelets (Bld) [#/Vol] 181 10*3/uL 150-[address] [facility] Potassium measurement (mass/ volume)Ordered By: Vinh Lomeli on 08-28-2024 Potassium (Unsp spec) [Mass/Vol] 3.1 mmol/L Low 3.3-5.[address] [facility] Protein Test strip Ql (U)Ord ered By: Vinh Lomeli on 08-28-2024 Protein Ql (U) Negative Negative [facility] RBC Auto (Bld) [#/Vol]Ordere d By: Vinh Lomeli on 08-28-2024 RBC (Bld) [#/Vol] 3.00 10*6/uL Low 4.6-6.2 [facility] Serum creatinine measurement (mass/volume)Ordered By: Vinh Lomeli on 08-28-2024 Creatinine [Mass/Vol] 1.10 mg/dL 0.70-1.20 [facility] Serum glucose measurement (m ass/volume)Ordered By: Vinh Lomeli on 08-28-2024 Glucose [Mass/Vol] 369 mg/dL High 70-99 [facility] Serum or plasma calcium luciana urement (mass/volume)Ordered By: Vinh Lomeli on 08-28-2024 Calcium [Mass/Vol] 8.0 mg/dL 7.6-11.0 [facility] Serum or plasma urea nitroge n measurement (mass/volume)Ordered By: Vinh Lomeli on 08-28-2024 Urea nitrogen [Mass/Vol] 8 mg/dL 4-[address] [facility] Sodium levelOrdered By: Vinh Lomeli on 08-28-2024 Sodium [Moles/Vol] 137 mmol/L 133-145 [facility] Squamous epithelial cells de tection in urine sediment by light microscopyOrdered By: Vinh Lomeli on 08-28-2024 Epithelial cells.squamous LM Ql (Urine sed) 0 SEEN /hpf 0-[address] [facility] Troponin T.cardiac [Mass/vol ume] in Serum or Plasma by High sensitivity methodOrdered By: Vinh Lomeli on 08-28-2024 Troponin T.cardiac High sensitivity method [Mass/Vol] 57 ng/L High <[address] [facility] Troponin T.cardiac High sensitivity method [Mass/Vol] 67 ng/L High <[address] [facility] Urine clarityOrdered By: Jasvir Lomeli on 08-28-2024 Clarity (U) Clear Clear [facility] Urine color determinationOrd ered By: Vinh Lomeli on 08-28-2024 Color (U) Straw Yellow [facility] Urine glucose detectionOrder ed By: Vinh Lomeli on 08-28-2024 Glucose Ql (U) 1000 mg/dl High Normal [facility] Urine leukocyte esterase det ection by dipstickOrdered By: Vinh Lomeli on 08-28-2024 Leukocyte esterase Test strip Ql (U) Negative Negative [facility] Urine pHOrdered By: Vinh chaidez on 08-28-2024 pH (U) 7.0 [pH] 5.0 - 8.[address] [facility] Urine sediment bacteria coun t by microscopy (number/high power field)Ordered By: Vinh Lomeli on 08-28-2024 Bacteria LM.HPF (Urine sed) [#/Area] 0 /[HPF] None Seen [facility] Urine specific gravity measu rementOrdered By: Vinh Lomeli on 08-28-2024 Specific gravity (U) [Rel density] 1.010 1.002-1.[address] [facility] Urine urobilinogen measureme ntOrdered By: Vinh Lomeli on 08-28-2024 Urobilinogen Ql (U) Normal mg/dl Normal [facility] White blood cell (WBC) count Ordered By: Vinh Lomeli on 08-28-2024 WBC (Bld) [#/Vol] 4.8 10*3/uL 4.4-11.0 [facility] White blood cell countOrdere d By: Vinh Lomeli on 08-28-2024 White blood cell count 0-5 SEEN /hpf 0-[address] [facility] Absolute lymphocyte countOrd ered By: Valeriy Connell on 08-03-2024 Lymphocytes Auto (Unsp spec) [#/Vol] 0.89 10*3/uL 0.83-4.[address] [facility] Anion gap in Serum or Plasma Ordered By: Valeriy Connell on 08-03-2024 Anion gap [Moles/Vol] 8 mmol/L 5-15 [facility] Automated lymphocyte count a s percentage of total leukocytesOrdered By: Valeriy Connell on 08-03-2024 Lymphocytes/100 WBC Auto (Unsp spec) 21.3 % 19-[address] [facility] BUN/creatinine ratioOrdered By: Valeriy Connell on 08-03-2024 Urea nitrogen/Creatinine [Mass ratio] 10.4 mg/mg 10-[address] [facility] Basophil percentageOrdered B y: Valeriy Connell on 08-03-2024 Basophils/100 WBC (Bld) 1.2 % High 0-1 [facility] Carbon dioxide, total [Moles /volume] in Central venous bloodOrdered By: Valeriy Connell on 08-03-2024 CO2 [Moles/Vol] 23.3 mmol/L 21.0-32.[address] [facility] Chloride assayOrdered By: Alex Connell on 08-03-2024 Chloride [Moles/Vol] 107 mmol/L 98-108 [facility] Eosinophil percentageOrdered By: Valeriy Connell on 08-03-2024 Eosinophils/100 WBC (Bld) 2.2 % 0-[address] [facility] Erythrocyte distribution wid th ratioOrdered By: Valeriy Connell on 08-03-2024 Erythrocyte distribution width (RBC) [Ratio] 14.4 % 11.6-14.[address] [facility] Erythrocyte distribution wid th standard deviationOrdered By: Valeriy Connell on 08-03-2024 Erythrocyte distribution width (RBC) [Ratio] 58.9 fl High 35.1-43.[address] [facility] Glomerular filtration rate ( GFR) estimation/1.73 sq m using serum, plasma, or whole bOrdered By: Valeriy Connell on 08-03-2024 GFR/1.73 sq M.predicted among non-blacks MDRD (S/P/Bld) [Vol rate/Area] 58 mL/min/{1.73_m2} Low >[address] [facility] deOrdered By: Valeriy Connell on 08-03-2024 Glucose [Mass/Vol] 304 mg/dL High 74-106 [facility] Hematocrit Auto (Bld) [Volum e fraction]Ordered By: Valeriy Connell on 08-03-2024 Hematocrit (Bld) [Volume fraction] 29.3 % Low 40-[address] [facility] Hemoglobin measurementOrdere d By: Valeriy Connell on 08-03-2024 Hemoglobin (Bld) [Mass/Vol] 9.3 g/dL Low 13.0-16.[address] [facility] Immature granulocytes/100 WB C Auto (Bld)Ordered By: Valeriy Connell on 08-03-2024 Immature granulocytes/100 WBC (Bld) 0.200 % 0.0-0.[address] [facility] MCV (mean corpuscular volume ) determinationOrdered By: Valeriy Connell on 08-03-2024 MCV (RBC) [Entitic vol] 110.6 fL High 80-94 [facility] Mean corpuscular hemoglobin (MCH) determinationOrdered By: Valeriy Connell on 08-03-2024 MCH (RBC) [Entitic mass] 35.1 pg High 27.0-32.[address] [facility] Monocyte percentageOrdered B y: Valeriy Connell on 08-03-2024 Monocytes/100 WBC (Bld) 10.6 % High 0-10 [facility] Neutrophil percentageOrdered By: Valeriy Connell on 08-03-2024 Neutrophils/100 WBC (Bld) 64.5 % 47-[address] [facility] Platelet countOrdered By: Alex Connell on 08-03-2024 Platelets (Bld) [#/Vol] 147 10*3/uL Low 150-[address] [facility] Potassium measurement (mass/ volume)Ordered By: Valeriy Connell on 08-03-2024 Potassium (Unsp spec) [Mass/Vol] 4.4 mmol/L 3.3-5.[address] [facility] RBC Auto (Bld) [#/Vol]Ordere d By: Valeriy Connell on 08-03-2024 RBC (Bld) [#/Vol] 2.65 10*6/uL Low 4.6-6.2 [facility] Serum creatinine measurement (mass/volume)Ordered By: Valeriy Connell on 08-03-2024 Creatinine [Mass/Vol] 1.38 mg/dL High 0.70-1.20 [facility] Serum glucose measurement (m ass/volume)Ordered By: Valeriy Connell on 08-03-2024 Glucose [Mass/Vol] 151 mg/dL High 70-99 [facility] Serum or plasma calcium luciana urement (mass/volume)Ordered By: Valeriy Connell on 08-03-2024 Calcium [Mass/Vol] 8.0 mg/dL 7.6-11.0 [facility] Serum or plasma urea nitroge n measurement (mass/volume)Ordered By: Valeriy Connell on 08-03-2024 Urea nitrogen [Mass/Vol] 14 mg/dL 4-[address] [facility] Sodium levelOrdered By: Valeriy Connell on 08-03-2024 Sodium [Moles/Vol] 139 mmol/L 133-145 [facility] White blood cell (WBC) count Ordered By: Valeriy Connell on 08-03-2024 WBC (Bld) [#/Vol] 4.2 10*3/uL Low 4.4-11.0 [facility] Bilirubin, totalOrdered By: Iman Aguayo on 08-02-2024 Bilirubin [Mass/Vol] 0.31 mg/dL 0.00-1.30 [facility] Calculated very low density lipoprotein (VLDL) cholesterol measurementOrdered By: Iman Aguayo on 08-02-2024 Calculated very low density lipoprotein (VLDL) cholesterol measurement 26 mg/dL 5-[address] [facility] Electrocardiogram reportOrde red By: Trung Bob on 08-02-20[address] [facility] Work Phone: LDL calc ser/plasOrdered By: Iman Aguayo on 08-02-2024 Cholesterol in LDL [Mass/Vol] 41 mg/dL [facility] No Panel InformationOrdered By: Iman Aguayo on 08-02-2024 35 U/L <[address] [facility] Serum globulin measurementOr dered By: Iman Aguayo on 08-02-2024 Globulin (S) [Mass/Vol] 2.6 g/dL 2.2-4.2 [facility] Serum or plasma alanine padilla otransferase (ALT) measurementOrdered By: Iman Aguayo on 08-02-2024 ALT [Catalytic activity/Vol] 13 U/L <[address] [facility] Serum or plasma albumin luciana urement (mass/volume)Ordered By: Iman Aguayo on 08-02-2024 Albumin [Mass/Vol] 2.6 g/dL Low 3.4-4.8 [facility] Serum or plasma albumin/glob ulin mass ratioOrdered By: Iman Aguayo on 08-02-2024 Albumin/Globulin [Mass ratio] 1.0 {ratio} 0.9-2.[address] [facility] Serum or plasma alkaline nolan sphatase measurementOrdered By: Iman Aguayo on 08-02-2024 ALP [Catalytic activity/Vol] 101 U/L 40-[address] [facility] Serum or plasma cholesterol in HDL measurement (mass/volume)Ordered By: Iman Aguayo on 08-02-2024 Cholesterol in HDL [Mass/Vol] 33 mg/dL Low >[address] [facility] Serum or plasma cholesterol measurement (mass/volume)Ordered By: Iman Aguayo on 08-02-2024 Cholesterol [Mass/Vol] 100 mg/dL <201 [facility] TSH DL <= 0.005 mIU/L QnOrde red By: Iman Aguayo on 08-02-2024 TSH Qn 2.140 uIU/mL 0.300-4.[address] [facility] Total proteinOrdered By: Aut umn Olivier on 08-02-2024 Protein [Mass/Vol] 5.1 g/dL Low 5.9-8.4 [facility] Troponin T.cardiac [Mass/vol ume] in Serum or Plasma by High sensitivity methodOrdered By: Iman Aguayo on 08-02-2024 Troponin T.cardiac High sensitivity method [Mass/Vol] 95 ng/L High <[address] [facility] Troponin T.cardiac High sensitivity method [Mass/Vol] 106 ng/L High <[address] [facility] Absolute lymphocyte countOrd ered By: Tierney Macdonald on 08-01-2024 Lymphocytes Auto (Unsp spec) [#/Vol] 0.87 10*3/uL 0.83-4.[address] [facility] Anion gap in Serum or Plasma Ordered By: Tierney Macdonald on 08-01-2024 Anion gap [Moles/Vol] 16 mmol/L High 5-15 [facility] Automated lymphocyte count a s percentage of total leukocytesOrdered By: Tierney Macdonald on 08-01-2024 Lymphocytes/100 WBC Auto (Unsp spec) 16.1 % Low 19-[address] [facility] BUN/creatinine ratioOrdered By: Tierney Macdonald on 08-01-2024 Urea nitrogen/Creatinine [Mass ratio] 7.7 mg/mg Low 10-[address] [facility] Basophil percentageOrdered B y: Tierney Macdonald on 08-01-2024 Basophils/100 WBC (Bld) 1.3 % High 0-1 [facility] Bilirubin, totalOrdered By: Tierney Macdonald on 08-01-2024 Bilirubin [Mass/Vol] 0.37 mg/dL 0.00-1.30 [facility] Carbon dioxide, total [Moles /volume] in Central venous bloodOrdered By: Tierney Macdonald on 08-01-2024 CO2 [Moles/Vol] 18.6 mmol/L Low 21.0-32.[address] [facility] Chloride assayOrdered By: Sudeep Macdonald on 08-01-2024 Chloride [Moles/Vol] 103 mmol/L 98-108 [facility] Eosinophil percentageOrdered By: Tierney Macdonald on 08-01-2024 Eosinophils/100 WBC (Bld) 0.9 % 0-[address] [facility] Erythrocyte distribution wid th ratioOrdered By: Tierney Macdonald on 08-01-2024 Erythrocyte distribution width (RBC) [Ratio] 14.3 % 11.6-14.[address] [facility] Erythrocyte distribution wid th standard deviationOrdered By: Tierney Macdonald on 08-01-2024 Erythrocyte distribution width (RBC) [Ratio] 58.4 fl High 35.1-43.[address] [facility] Glomerular filtration rate ( GFR) estimation/1.73 sq m using serum, plasma, or whole bOrdered By: Tierney Macdonald on 08-01-2024 GFR/1.73 sq M.predicted among non-blacks MDRD (S/P/Bld) [Vol rate/Area] 70 mL/min/{1.73_m2} >[address] [facility] Hematocrit Auto (Bld) [Volum e fraction]Ordered By: Tierney Macdonald on 08-01-2024 Hematocrit (Bld) [Volume fraction] 34.0 % Low 40-[address] [facility] Hemoglobin measurementOrdere d By: Tierney Macdonald on 08-01-2024 Hemoglobin (Bld) [Mass/Vol] 11.0 g/dL Low 13.0-16.[address] [facility] Immature granulocytes/100 WB C Auto (Bld)Ordered By: Tierney Macdonald on 08-01-2024 Immature granulocytes/100 WBC (Bld) 0.400 % 0.0-0.[address] [facility] MCV (mean corpuscular volume ) determinationOrdered By: Tierney Macdonald on 08-01-2024 MCV (RBC) [Entitic vol] 110.4 fL High 80-94 [facility] Magnesium measurement (mass/ volume)Ordered By: Iman Aguayo on 08-01-2024 Magnesium (Unsp spec) [Mass/Vol] 2.2 mg/dL 1.5-2.[address] [facility] Mean corpuscular hemoglobin (MCH) determinationOrdered By: Tierney Macdonald on 08-01-2024 MCH (RBC) [Entitic mass] 35.7 pg High 27.0-32.[address] [facility] Monocyte percentageOrdered B y: Tierney Macdonald on 08-01-2024 Monocytes/100 WBC (Bld) 8.0 % 0-10 [facility] Natriuretic peptide.B prohor irene N-Terminal [Mass/volume] in Serum or PlasmaOrdered By: Tierney Macdonald on 08-01-2024 Natriuretic peptide.B prohormone N-Terminal [Mass/Vol] 46768 pg/mL High <[address] [facility] Neutrophil percentageOrdered By: Tierney Macdonald on 08-01-2024 Neutrophils/100 WBC (Bld) 73.3 % High 47-[address] [facility] No Panel InformationOrdered By: Tierney Macdonald on 08-01-2024 48 U/L High <[address] [facility] Platelet countOrdered By: Sudeep Macdonald on 08-01-2024 Platelets (Bld) [#/Vol] 189 10*3/uL 150-[address] [facility] Potassium measurement (mass/ volume)Ordered By: Tierney Macdonald on 08-01-2024 Potassium (Unsp spec) [Mass/Vol] 3.8 mmol/L 3.3-5.[address] [facility] RBC Auto (Bld) [#/Vol]Ordere d By: Tierney Macdonald on 08-01-2024 RBC (Bld) [#/Vol] 3.08 10*6/uL Low 4.6-6.2 [facility] Serum creatinine measurement (mass/volume)Ordered By: Tierney Macdonald on 08-01-2024 Creatinine [Mass/Vol] 1.17 mg/dL 0.70-1.20 [facility] Serum globulin measurementOr dered By: Tierney Macdonald on 08-01-2024 Globulin (S) [Mass/Vol] 3.3 g/dL 2.2-4.[address] [facility] Serum glucose measurement (m ass/volume)Ordered By: Tierney Macdonald on 08-01-2024 Glucose [Mass/Vol] 159 mg/dL High 70-99 [facility] Serum or plasma alanine padilla otransferase (ALT) measurementOrdered By: Tierney Macdonald on 08-01-2024 ALT [Catalytic activity/Vol] 20 U/L <[address] [facility] Serum or plasma albumin luciana urement (mass/volume)Ordered By: Tierney Macdonald on 08-01-2024 Albumin [Mass/Vol] 3.0 g/dL Low 3.4-4.8 [facility] Serum or plasma albumin/glob ulin mass ratioOrdered By: Tierney Macdonald on 08-01-2024 Albumin/Globulin [Mass ratio] 0.9 {ratio} 0.9-2.[address] [facility] Serum or plasma alkaline nolan sphatase measurementOrdered By: Tierney Macdonald on 08-01-2024 ALP [Catalytic activity/Vol] 121 U/L 40-[address] [facility] Serum or plasma calcium luciana urement (mass/volume)Ordered By: Tierney Macdonald on 08-01-2024 Calcium [Mass/Vol] 8.4 mg/dL 7.6-11.0 [facility] Serum or plasma urea nitroge n measurement (mass/volume)Ordered By: Tierney Macdonald on 08-01-2024 Urea nitrogen [Mass/Vol] 9 mg/dL 4-[address] [facility] Sodium levelOrdered By: Alanis Macdonald on 08-01-2024 Sodium [Moles/Vol] 137 mmol/L 133-145 [facility] Total proteinOrdered By: Adrianna Macdonald on 08-01-2024 Protein [Mass/Vol] 6.3 g/dL 5.9-8.4 [facility] Troponin T.cardiac [Mass/vol ume] in Serum or Plasma by High sensitivity methodOrdered By: Iman Aguayo on 08-01-2024 Troponin T.cardiac High sensitivity method [Mass/Vol] 96 ng/L High <[address] [facility] White blood cell (WBC) count Ordered By: Tierney Macdonald on 08-01-2024 WBC (Bld) [#/Vol] 5.4 10*3/uL 4.4-11.0 [facility] deOrdered By: Conrado Morel on 07-14-2024 Glucose [Mass/Vol] 235 mg/dL High 74-106 [facility] Absolute lymphocyte countOrd ered By: Conrado Morel on 07-13-2024 Lymphocytes Auto (Unsp spec) [#/Vol] 1.06 10*3/uL 0.83-4.[address] [facility] Anion gap in Serum or Plasma Ordered By: Conrado Morel on 07-13-2024 Anion gap [Moles/Vol] 11 mmol/L 5-15 [facility] Automated lymphocyte count a s percentage of total leukocytesOrdered By: Conrado Morel on 07-13-2024 Lymphocytes/100 WBC Auto (Unsp spec) 16.6 % Low 19-[address] [facility] BUN/creatinine ratioOrdered By: Conrado Morel on 07-13-2024 Urea nitrogen/Creatinine [Mass ratio] 6.7 mg/mg Low 10-[address] [facility] Basophil percentageOrdered B y: Conrado Moerl on 07-13-2024 Basophils/100 WBC (Bld) 0.9 % 0-1 [facility] Carbon dioxide, total [Moles /volume] in Central venous bloodOrdered By: Conrado Morel on 07-13-2024 CO2 [Moles/Vol] 21.2 mmol/L 21.0-32.[address] [facility] Chloride assayOrdered By: Lauri Morel on 07-13-2024 Chloride [Moles/Vol] 107 mmol/L 98-108 [facility] Eosinophil percentageOrdered By: Conrado Morel on 07-13-2024 Eosinophils/100 WBC (Bld) 1.4 % 0-[address] [facility] Erythrocyte distribution wid th ratioOrdered By: Conrado Morel on 07-13-2024 Erythrocyte distribution width (RBC) [Ratio] 15.6 % High 11.6-14.[address] [facility] Erythrocyte distribution wid th standard deviationOrdered By: Conrado Morel on 07-13-2024 Erythrocyte distribution width (RBC) [Ratio] 63.7 fl High 35.1-43.[address] [facility] Glomerular filtration rate ( GFR) estimation/1.73 sq m using serum, plasma, or whole bOrdered By: Conrado Morel on 07-13-2024 GFR/1.73 sq M.predicted among non-blacks MDRD (S/P/Bld) [Vol rate/Area] 69 mL/min/{1.73_m2} >[address] [facility] Hematocrit Auto (Bld) [Volum e fraction]Ordered By: Conrado Morel on 07-13-2024 Hematocrit (Bld) [Volume fraction] 26.5 % Low 40-[address] [facility] Hemoglobin measurementOrdere d By: Conrado Morel on 07-13-2024 Hemoglobin (Bld) [Mass/Vol] 8.5 g/dL Low 13.0-16.[address] [facility] Immature granulocytes/100 WB C Auto (Bld)Ordered By: Conrado Morel on 07-13-2024 Immature granulocytes/100 WBC (Bld) 0.300 % 0.0-0.[address] [facility] MCV (mean corpuscular volume ) determinationOrdered By: Conrado Morel on 07-13-2024 MCV (RBC) [Entitic vol] 111.8 fL High 80-94 [facility] Magnesium measurement (mass/ volume)Ordered By: Conrado Morel on 07-13-2024 Magnesium (Unsp spec) [Mass/Vol] 2.0 mg/dL 1.5-2.[address] [facility] Mean corpuscular hemoglobin (MCH) determinationOrdered By: Conrado Morel on 07-13-2024 MCH (RBC) [Entitic mass] 35.9 pg High 27.0-32.[address] [facility] Monocyte percentageOrdered B y: Conrado Morel on 07-13-2024 Monocytes/100 WBC (Bld) 6.6 % 0-10 [facility] Neutrophil percentageOrdered By: Conrado Morel on 07-13-2024 Neutrophils/100 WBC (Bld) 74.2 % High 47-[address] [facility] Platelet countOrdered By: Lauri Morel on 07-13-2024 Platelets (Bld) [#/Vol] 165 10*3/uL 150-[address] [facility] Potassium measurement (mass/ volume)Ordered By: Conrado Morel on 07-13-2024 Potassium (Unsp spec) [Mass/Vol] 4.4 mmol/L 3.3-5.[address] [facility] RBC Auto (Bld) [#/Vol]Ordere d By: Conrado Morel on 07-13-2024 RBC (Bld) [#/Vol] 2.37 10*6/uL Low 4.6-6.2 [facility] Serum creatinine measurement (mass/volume)Ordered By: Conrado Morel on 07-13-2024 Creatinine [Mass/Vol] 1.19 mg/dL 0.70-1.20 [facility] Serum glucose measurement (m ass/volume)Ordered By: Conrado Morel on 07-13-2024 Glucose [Mass/Vol] 96 mg/dL 70-99 [facility] Serum or plasma calcium luciana urement (mass/volume)Ordered By: Conrado Morel on 07-13-2024 Calcium [Mass/Vol] 8.3 mg/dL 7.6-11.0 [facility] Serum or plasma urea nitroge n measurement (mass/volume)Ordered By: Conrado Morel on 07-13-2024 Urea nitrogen [Mass/Vol] 8 mg/dL 4-[address] [facility] Sodium levelOrdered By: Lawrence Morel on 07-13-2024 Sodium [Moles/Vol] 139 mmol/L 133-145 [facility] White blood cell (WBC) count Ordered By: Conrado Morel on 07-13-2024 WBC (Bld) [#/Vol] 6.4 10*3/uL 4.4-11.0 [facility] Bedside Glucoseon 07-12-2024 FINGERSTICK GLU 94 mg/dL Normal 74-[address] [facility] Comment on above: Result Comment: DAYANARA MORENO OF PATIENT CARE PER NURSING PROTOCOL Performed By: #### L 501.080 ####[facility] [address] [place], [place], [address] Bilirubin, totalOrdered By: Melonie De La Rosa on 07-12-2024 Bilirubin [Mass/Vol] 0.36 mg/dL 0.00-1.30 [facility] Body Fluid Cell Count+Diffon 07-12-2024 PATH COMM/BF Reviewed Normal [facility] Comment on above: Result Comment: NO M ALIGNANT CELLS OBSERVED.Fabiola Landaverde MD 07/12/2024 AMENDED REPORT 07/12/24 1412 PATH COMM/BF previously reported as: May follow Performed By: #### L 200.0200 ####[facility] [address] [place], [place], [address] CBC W/Diff, Automatedon Anisocytosis Ql (Bld) 1+ Normal [facility] Comment on above: Performed By: #### L 100.0100, L501.2300, L501.5200, L500.4050 ####[facility] [address] [place], [address] Comprehensive Metabolic Prof ilon 07-12-2024 Albumin [Mass/Vol] 2.5 g/dL Low 3.4-4.8 [facility] Comment on above: Performed By: #### L 100.0100, L501.2300, L501.5200, L500.4050 ####[facility] [address] [place], [address] Albumin/Globulin [Mass ratio] 0.9 {ratio} Normal 0.9-2.[address] [facility] Comment on above: Performed By: #### L 100.0100, L501.2300, L501.5200, L500.4050 ####[facility] [address] [place], [address] ALK PHOS 90 U/L Normal 40-[address] [facility] Comment on above: Performed By: #### L 100.0100, L501.2300, L501.5200, L500.4050 ####[facility] [address] [place], [address] ALT [Catalytic activity/Vol] 20 U/L Normal <=[address] [facility] Comment on above: Performed By: #### L 100.0100, L501.2300, L501.5200, L500.4050 ####[facility] [address] [place], [address] AST [Catalytic activity/Vol] 51 U/L High <=[address] [facility] Comment on above: Performed By: #### L 100.0100, L501.2300, L501.5200, L500.4050 ####[facility] [address] [place], [address] Bilirubin [Mass/Vol] 0.36 mg/dL Normal 0.00-1.30 [facility] Comment on above: Performed By: #### L 100.0100, L501.2300, L501.5200, L500.4050 ####[facility] [address] [place], [address] BUN/CRE 8.3 RATIO Low 10-[address] [facility] Comment on above: Performed By: #### L 100.0100, L501.2300, L501.5200, L500.4050 ####[facility] [address] [place], [address] Calcium [Mass/Vol] 8.1 mg/dL Normal 7.6-11.0 [facility] Comment on above: Performed By: #### L 100.0100, L501.2300, L501.5200, L500.4050 ####[facility] [address] [place], [address] Chloride [Moles/Vol] 108 mmol/L Normal 98-108 [facility] Comment on above: Performed By: #### L 100.0100, L501.2300, L501.5200, L500.4050 ####[facility] [address] [place], [address] CO2 [Moles/Vol] 22.8 mmol/L Normal 21.0-32.[address] [facility] Comment on above: Performed By: #### L 100.0100, L501.2300, L501.5200, L500.4050 ####[facility] [address] [place], [address] Creatinine [Mass/Vol] 1.12 mg/dL Normal 0.70-1.20 [facility] Comment on above: Performed By: #### L 100.0100, L501.2300, L501.5200, L500.4050 ####[facility] [address] [place], [address] ECRCL 63.78 ml/min Normal 50-[address] [facility] Comment on above: Performed By: #### L 100.0100, L501.2300, L501.5200, L500.4050 ####[facility] [address] [place], [address] GAP 7 Normal 5-[address] [facility] Comment on above: Performed By: #### L 100.0100, L501.2300, L501.5200, L500.4050 ####[facility] [address] [place], [address] GFR/1.73 sq M.predicted among non-blacks MDRD (S/P/Bld) [Vol rate/Area] 75 mL/min/{1.73_m2} Normal >[address] [facility] Comment on above: Result Comment: mL/m in/1.73m2 CKD-EPI Creatinine Equation (2020) Performed By: #### L 100.0100, L501.2300, L501.5200, L500.4050 ####[facility] [address] [place], [address] Globulin (S) [Mass/Vol] 2.6 g/dL Normal 2.2-4.[address] [facility] Comment on above: Performed By: #### L 100.0100, L501.2300, L501.5200, L500.4050 ####[facility] [address] [place], [address] Glucose [Mass/Vol] 93 mg/dL Normal 70-99 [facility] Comment on above: Performed By: #### L 100.0100, L501.2300, L501.5200, L500.4050 ####[facility] [address] [place], [address] Potassium [Moles/Vol] 4.2 mmol/L Normal 3.3-5.1 [facility] Comment on above: Performed By: #### L 100.0100, L501.2300, L501.5200, L500.4050 ####[facility] [address] [place], [address] Sodium [Moles/Vol] 138 mmol/L Normal 133-145 [facility] Comment on above: Performed By: #### L 100.0100, L501.2300, L501.5200, L500.4050 ####[facility] [address] [place], [address] T PROT 5.1 g/dL Low 5.9-8.[address] [facility] Comment on above: Performed By: #### L 100.0100, L501.2300, L501.5200, L500.4050 ####[facility] [address] [place], [address] Urea nitrogen [Mass/Vol] 9 mg/dL Normal 4-[address] [facility] Comment on above: Performed By: #### L 100.0100, L501.2300, L501.5200, L500.4050 ####[facility] [address] [place], [address] Consultation - Surgicalon Consultation - Surgical Normal [facility] Magnesiumon 07-12-2024 Magnesium [Mass/Vol] 2.0 mg/dL Normal 1.5-2.2 [facility] Comment on above: Performed By: #### L 100.0100, L501.2300, L501.5200, L500.4050 ####[facility] [address] [place], [address] No Panel InformationOrdered By: Melonie De La Rosa on 07-12-2024 1+ [facility] 51 U/L High <[address] [facility] Phosphoruson 07-12-2024 Phosphate [Mass/Vol] 3.0 mg/dL Normal 2.7-4.5 [facility] Comment on above: Performed By: #### L 100.0100, L501.2300, L501.5200, L500.4050 ####[facility] [address] [place], [address] Serum globulin measurementOr dered By: Melonie De La Rosa on 07-12-2024 Globulin (S) [Mass/Vol] 2.6 g/dL 2.2-4.[address] [facility] Serum or plasma alanine padilla otransferase (ALT) measurementOrdered By: Melonie De La Rosa on 07-12-2024 ALT [Catalytic activity/Vol] 20 U/L <[address] [facility] Serum or plasma albumin luciana urement (mass/volume)Ordered By: Melonie De La Rosa on 07-12-2024 Albumin [Mass/Vol] 2.5 g/dL Low 3.4-4.8 [facility] Serum or plasma albumin/glob ulin mass ratioOrdered By: Melonie De La Rosa on 07-12-2024 Albumin/Globulin [Mass ratio] 0.9 {ratio} 0.9-2.[address] [facility] Serum or plasma alkaline nolan sphatase measurementOrdered By: Melonie De La Rosa on 07-12-2024 ALP [Catalytic activity/Vol] 90 U/L 40-[address] [facility] Total proteinOrdered By: Shira De La Rosa on 07-12-2024 Protein [Mass/Vol] 5.1 g/dL Low 5.9-8.4 [facility] Abdomen/Pelvis W IV Cont ONL Yon 07-11-2024 Abdomen/Pelvis W IV Cont ONLY Normal [facility] Absolute lymphocyte countOrd ered By: Perez Ribeiro on 07-11-2024 Lymphocytes Auto (Unsp spec) [#/Vol] 0.86 10*3/uL 0.83-4.[address] [facility] Alcohol, Blood (Medical)-Ser umon 07-11-2024 SERUM ETOH < 10.1 Normal <=10.[address] [facility] Comment on above: Result Comment: This test is for medical purposes only. The legaldefinition of intoxication varies according to local law. Performed By: #### L 505.5000, L100.0100, L501.9100, L500.2500, L500.3400, L501.2450 ####[facility] [address] [place], [place], [id number] Amphetamine detection with 1 000 ng/mL as cutoffOrdered By: Perez Ribeiro on 07-11-2024 Amphetamines Screen method >1000 ng/mL Ql (U) Negative <1000 ng/mL [facility] Amphetamines Screen method >1000 ng/mL Ql (U) Positive < 200 ng/mL [facility] Anion gap in Serum or Plasma Ordered By: Preez Ribeiro on 07-11-2024 Anion gap [Moles/Vol] 8 mmol/L 5-15 [facility] Automated lymphocyte count a s percentage of total leukocytesOrdered By: Perez Ribeiro on 07-11-2024 Lymphocytes/100 WBC Auto (Unsp spec) 15.4 % Low 19-[address] [facility] BUN/creatinine ratioOrdered By: Perez Ribeiro on 07-11-2024 Urea nitrogen/Creatinine [Mass ratio] 8.9 mg/mg Low 10-[address] [facility] Basic Metabolic Profile (BMP )on 07-11-2024 BUN/CRE 8.9 RATIO Low 10-[address] [facility] Comment on above: Performed By: #### L 505.5000, L100.0100, L501.9100, L500.2500, L500.3400, L501.2450 ####[facility] [address] [place], [place], [id number] Calcium [Mass/Vol] 8.3 mg/dL Normal 7.6-11.0 [facility] Comment on above: Performed By: #### L 505.5000, L100.0100, L501.9100, L500.2500, L500.3400, L501.2450 ####[facility] [address] [place], [place], [address] Chloride [Moles/Vol] 103 mmol/L Normal 98-108 [facility] Comment on above: Performed By: #### L 505.5000, L100.0100, L501.9100, L500.2500, L500.3400, L501.2450 ####[facility] [address] [place], [address] CO2 [Moles/Vol] 28.3 mmol/L Normal 21.0-32.[address] [facility] Comment on above: Performed By: #### L 505.5000, L100.0100, L501.9100, L500.2500, L500.3400, L501.2450 ####[facility] [address] [place], [address] Creatinine [Mass/Vol] 1.15 mg/dL Normal 0.70-1.20 [facility] Comment on above: Performed By: #### L 505.5000, L100.0100, L501.9100, L500.2500, L500.3400, L501.2450 ####[facility] [address] [place], [address] ECRCL 62.80 ml/min Normal 50-[address] [facility] Comment on above: Performed By: #### L 505.5000, L100.0100, L501.9100, L500.2500, L500.3400, L501.2450 ####[facility] [address] [place], [address] GAP 8 Normal 5-[address] [facility] Comment on above: Performed By: #### L 505.5000, L100.0100, L501.9100, L500.2500, L500.3400, L501.2450 ####[facility] [address] [place], [address] GFR/1.73 sq M.predicted among non-blacks MDRD (S/P/Bld) [Vol rate/Area] 72 mL/min/{1.73_m2} Normal >[address] [facility] Comment on above: Result Comment: mL/m in/1.73m2 CKD-EPI Creatinine Equation (2020) Performed By: #### L 505.5000, L100.0100, L501.9100, L500.2500, L500.3400, L501.2450 ####[facility] [address] [place], [address] Glucose [Mass/Vol] 137 mg/dL High 70-99 [facility] Comment on above: Performed By: #### L 505.5000, L100.0100, L501.9100, L500.2500, L500.3400, L501.2450 ####[facility] [address] [place], [address] Potassium [Moles/Vol] 4.6 mmol/L Normal 3.3-5.1 [facility] Comment on above: Performed By: #### L 505.5000, L100.0100, L501.9100, L500.2500, L500.3400, L501.2450 ####[facility] [address] [place], [address] Sodium [Moles/Vol] 140 mmol/L Normal 133-145 [facility] Comment on above: Performed By: #### L 505.5000, L100.0100, L501.9100, L500.2500, L500.3400, L501.2450 ####[facility] [address] [place], [address] Urea nitrogen [Mass/Vol] 10 mg/dL Normal 4-[address] [facility] Comment on above: Performed By: #### L 505.5000, L100.0100, L501.9100, L500.2500, L500.3400, L501.2450 ####[facility] [address] [place], [address] Basophil percentageOrdered B y: Perez Ribeiro on 06-03-2025 Basophils/100 WBC (Bld) 1.1 % High 0-1 [facility] Bedside Glucoseon 07-11-2024 FINGERSTICK GLU 97 mg/dL Normal 74-[address] [facility] Comment on above: Result Comment: DAYANARA GEMENT OF PATIENT CARE PER NURSING PROTOCOL Performed By: #### L 501.080 ####[facility] [address] [place], [place], [id number] FINGERSTICK GLU 149 mg/dL High 74-[address] [facility] Comment on above: Result Comment: DAYANARA GEMENT OF PATIENT CARE PER NURSING PROTOCOL Performed By: #### L 501.080 ####[facility] [address] [place], [address] Bilirubin Test strip Ql (U)O rdered By: Perez Ribeiro on 07-11-2024 Bilirubin Ql (U) Negative Negative [facility] Bilirubin directOrdered By: Perez Ribeiro on 07-11-2024 Bilirubin.direct [Mass/Vol] 0.21 mg/dL 0.00-0.[address] [facility] Bilirubin, totalOrdered By: Perez Ribeiro on 07-11-2024 Bilirubin [Mass/Vol] 0.34 mg/dL 0.00-1.30 [facility] Blood polychromasia detectio n by light microscopyOrdered By: Perez Ribeiro on 07-11-2024 Polychromasia LM Ql (Bld) RARE [facility] CBC W/Diff, Automatedon Anisocytosis Ql (Bld) 1+ Normal [facility] Comment on above: Performed By: #### L 505.5000, L100.0100, L501.9100, L500.2500, L500.3400, L501.2450 ####[facility] [address] [place], [address] PLT EST A Normal ADEQ [facility] Comment on above: Performed By: #### L 505.5000, L100.0100, L501.9100, L500.2500, L500.3400, L501.2450 ####[facility] [address] [place], [address] POLYCHROMASIA RARE Normal [facility] Comment on above: Performed By: #### L 505.5000, L100.0100, L501.9100, L500.2500, L500.3400, L501.2450 ####[facility] [address] [place], [address] Carbon dioxide, total [Moles /volume] in Central venous bloodOrdered By: Perez Ribeiro on 07-11-2024 CO2 [Moles/Vol] 28.3 mmol/L 21.0-32.[address] [facility] Chloride assayOrdered By: Prosper Ribeiro on 07-11-2024 Chloride [Moles/Vol] 103 mmol/L 98-108 [facility] Emergency Department Summary on 07-11-2024 Emergency Department Summary Normal [facility] Eosinophil percentageOrdered By: Perez Ribeiro on 07-11-2024 Eosinophils/100 WBC (Bld) 0.4 % 0-[address] [facility] Erythrocyte distribution wid th ratioOrdered By: Perez Ribeiro on 07-11-2024 Erythrocyte distribution width (RBC) [Ratio] 16.1 % High 11.6-14.[address] [facility] Erythrocyte distribution wid th standard deviationOrdered By: Perez Ribeiro on 07-11-2024 Erythrocyte distribution width (RBC) [Ratio] 66.4 fl High 35.1-43.[address] [facility] Glomerular filtration rate ( GFR) estimation/1.73 sq m using serum, plasma, or whole bOrdered By: Perez Ribeiro on 07-11-2024 GFR/1.73 sq M.predicted among non-blacks MDRD (S/P/Bld) [Vol rate/Area] 72 mL/min/{1.73_m2} >[address] [facility] H AND P Exam - Hospitaliston 07-11-2024 H&P Exam - Hospitalist Normal [facility] Hematocrit Auto (Bld) [Volum e fraction]Ordered By: Perez Ribeiro on 07-11-2024 Hematocrit (Bld) [Volume fraction] 29.1 % Low 40-[address] [facility] Hemoglobin measurementOrdere d By: Perez Quintin on 07-11-2024 Hemoglobin (Bld) [Mass/Vol] 9.3 g/dL Low 13.0-16.[address] [facility] Immature granulocytes/100 WB C Auto (Bld)Ordered By: Perez Ribeiro on 07-11-2024 Immature granulocytes/100 WBC (Bld) 0.500 % 0.0-0.[address] [facility] Ketones Test strip Ql (U)Ord ered By: Perez Ribeiro on 07-11-2024 Ketones Ql (U) Negative Negative [facility] Lipaseon 07-11-2024 Lipase [Catalytic activity/Vol] 6 U/L Low 13-[address] [facility] Comment on above: Result Comment: Mary Anne zamorano note:LIPASE revised reference range effective 22.New Lipase methodology. Expected to produce lower valuesthan the previous assay method.NEW Reference Range: 13 - 75 U/L Performed By: #### L 505.5000, L100.0100, L501.9100, L500.2500, L500.3400, L501.2450 ####[facility] [address] [place], [place], [id number] Liver Profileon 07-11-2024 Albumin [Mass/Vol] 2.9 g/dL Low 3.4-4.8 [facility] Comment on above: Performed By: #### L 505.5000, L100.0100, L501.9100, L500.2500, L500.3400, L501.2450 ####[facility] [address] [place], [place], [id number] ALK PHOS 104 U/L Normal 40-[address] [facility] Comment on above: Performed By: #### L 505.5000, L100.0100, L501.9100, L500.2500, L500.3400, L501.2450 ####[facility] [address] [place], [address] ALT [Catalytic activity/Vol] 23 U/L Normal <=[address] [facility] Comment on above: Performed By: #### L 505.5000, L100.0100, L501.9100, L500.2500, L500.3400, L501.2450 ####[facility] [address] [place], [address] AST [Catalytic activity/Vol] 53 U/L High <=[address] [facility] Comment on above: Performed By: #### L 505.5000, L100.0100, L501.9100, L500.2500, L500.3400, L501.2450 ####[facility] [address] [place], [address] Bilirubin [Mass/Vol] 0.34 mg/dL Normal 0.00-1.30 [facility] Comment on above: Performed By: #### L 505.5000, L100.0100, L501.9100, L500.2500, L500.3400, L501.2450 ####[facility] [address] [place], [address] Bilirubin.direct [Mass/Vol] 0.21 mg/dL Normal 0.00-0.[address] [facility] Comment on above: Performed By: #### L 505.5000, L100.0100, L501.9100, L500.2500, L500.3400, L501.2450 ####[facility] [address] [place], [address] Globulin (S) [Mass/Vol] 2.8 g/dL Normal 2.2-4.[address] [facility] Comment on above: Performed By: #### L 505.5000, L100.0100, L501.9100, L500.2500, L500.3400, L501.2450 ####[facility] [address] [place], [address] T PROT 5.7 g/dL Low 5.9-8.[address] [facility] Comment on above: Performed By: #### L 505.5000, L100.0100, L501.9100, L500.2500, L500.3400, L501.2450 ####[facility] [address] [place], [place], [id number] MCV (mean corpuscular volume ) determinationOrdered By: Perez Ribeiro on 07-11-2024 MCV (RBC) [Entitic vol] 111.5 fL High 80-94 [facility] Mean corpuscular hemoglobin (MCH) determinationOrdered By: Perez Ribeiro on 07-11-2024 MCH (RBC) [Entitic mass] 35.6 pg High 27.0-32.[address] [facility] Monocyte percentageOrdered B y: Perez Ribeiro on 07-11-2024 Monocytes/100 WBC (Bld) 7.7 % 0-10 [facility] Mucus LM Ql (Urine sed)Order ed By: Perez Ribeiro on 07-11-2024 Mucus Ql (Urine sed) 0 SEEN /hpf [facility] Neutrophil percentageOrdered By: Perez Ribeiro on 07-11-2024 Neutrophils/100 WBC (Bld) 74.9 % High 47-[address] [facility] Nitrite Test strip Ql (U)Ord ered By: Perez Ribeiro on 07-11-2024 Nitrite Ql (U) Negative Negative [facility] No Panel InformationOrdered By: Perez Ribeiro on 07-11-2024 1+ [facility] 53 U/L High <[address] [facility] Negative < 200 ng/mL [facility] Platelet countOrdered By: Prosper Ribeiro on 07-11-2024 Platelets (Bld) [#/Vol] 155 10*3/uL 150-[address] [facility] Platelet estimateOrdered By: Perez Ribeiro on 07-11-2024 Platelets LM Ql (Bld) A ADEQ [facility] Potassium measurement (mass/ volume)Ordered By: Perez Ribeiro on 07-11-2024 Potassium (Unsp spec) [Mass/Vol] 4.6 mmol/L 3.3-5.[address] [facility] Protein Test strip Ql (U)Ord ered By: Perez Ribeiro on 07-11-2024 Protein Ql (U) 15 mg/dl High Negative [facility] RBC Auto (Bld) [#/Vol]Ordere d By: Perez Ribeiro on 07-11-2024 RBC (Bld) [#/Vol] 2.61 10*6/uL Low 4.6-6.2 [facility] Screening urine fentanyl mine surementOrdered By: Perez Ribeiro on 07-11-2024 fentaNYL Screen Ql (U) Negative [facility] Serum creatinine measurement (mass/volume)Ordered By: Perez Ribeiro on 07-11-2024 Creatinine [Mass/Vol] 1.15 mg/dL 0.70-1.20 [facility] Serum globulin measurementOr dered By: Perez Ribeiro on 07-11-2024 Globulin (S) [Mass/Vol] 2.8 g/dL 2.2-4.2 [facility] Serum glucose measurement (m ass/volume)Ordered By: Perez Ribeiro on 07-11-2024 Glucose [Mass/Vol] 137 mg/dL High 70-99 [facility] Serum or plasma alanine padilla otransferase (ALT) measurementOrdered By: Perez Ribeiro on 07-11-2024 ALT [Catalytic activity/Vol] 23 U/L <[address] [facility] Serum or plasma albumin luciana urement (mass/volume)Ordered By: Perez Ribeiro on 07-11-2024 Albumin [Mass/Vol] 2.9 g/dL Low 3.4-4.8 [facility] Serum or plasma alkaline nolan sphatase measurementOrdered By: Perez Ribeiro on 07-11-2024 ALP [Catalytic activity/Vol] 104 U/L 40-[address] [facility] Serum or plasma calcium luciana urement (mass/volume)Ordered By: Perez Ribeiro on 07-11-2024 Calcium [Mass/Vol] 8.3 mg/dL 7.6-11.0 [facility] Serum or plasma ethanol luciana urement (mass/volume)Ordered By: Perez Ribeiro on 07-11-2024 Ethanol [Mass/Vol] mg/dL <10.1 [facility] Serum or plasma urea nitroge n measurement (mass/volume)Ordered By: Perez Ribeiro on 07-11-2024 Urea nitrogen [Mass/Vol] 10 mg/dL 4-19 [facility] Sodium levelOrdered By: Beto Ribeiro on 07-11-2024 Sodium [Moles/Vol] 140 mmol/L 133-145 [facility] Squamous epithelial cells de tection in urine sediment by light microscopyOrdered By: Perez Ribeiro on 07-11-2024 Epithelial cells.squamous LM Ql (Urine sed) 0 SEEN /hpf 0-[address] [facility] Total proteinOrdered By: Alonso Ribeiro on 07-11-2024 Protein [Mass/Vol] 5.7 g/dL Low 5.9-8.4 [facility] Urinalysis, Completeon 07-11 BACTERIA 0 SEEN Normal None Seen [facility] Comment on above: Order Comment: CLEAN CATCH Performed By: #### L 400.0001 ####[facility] [address] [place], [address] EPI,SQUAMOUS 0 SEEN Normal 0-[address] [facility] Comment on above: Order Comment: CLEAN CATCH Performed By: #### L 400.0001 ####[facility] [address] [place], [address] Mucus Ql (Urine sed) [address] [facility] Comment on above: Order Comment: CLEAN CATCH Performed By: #### L 400.0001 ####[facility] [address] [place], [address] RBC 0 SEEN Normal 0-[address] [facility] Comment on above: Order Comment: CLEAN CATCH Performed By: #### L 400.0001 ####[facility] [address] [place], [address] WBC 0 SEEN Normal 0-[address] [facility] Comment on above: Order Comment: CLEAN CATCH Performed By: #### L 400.0001 ####[facility] [address] [place], [address] Urine Drug Screen (VISTA)on 07-11-2024 AMPHETAMINES Negative Normal <1000 ng/mL [facility] Comment on above: Performed By: #### L 505.5000, L100.0100, L501.9100, L500.2500, L500.3400, L501.2450 ####[facility] [address] [place], [address] BARBITIURATES Positive Normal < 200 ng/mL [facility] Comment on above: Result Comment: If c onfirmation testing is needed, a separate order will berequired to send out testing to the reference laboratory. Performed By: #### L 505.5000, L100.0100, L501.9100, L500.2500, L500.3400, L501.2450 ####[facility] [address] [place], [place], [phone] BENZODIAZIPINE Negative Normal < 200 ng/mL [facility] Comment on above: Performed By: #### L 505.5000, L100.0100, L501.9100, L500.2500, L500.3400, L501.2450 ####[facility] [address] [place], [place], [phone] BUP Ur Drug Scr Negative Normal < 200 ng/mL [facility] Comment on above: Performed By: #### L 505.5000, L100.0100, L501.9100, L500.2500, L500.3400, L501.2450 ####[facility] [address] [place], [place], [phone] COCAINE Negative Normal < 300 ng/mL [facility] Comment on above: Performed By: #### L 505.5000, L100.0100, L501.9100, L500.2500, L500.3400, L501.2450 ####[facility] [address] [place], [phone] Fentanyl Negative Normal [facility] Comment on above: Performed By: #### L 505.5000, L100.0100, L501.9100, L500.2500, L500.3400, L501.2450 ####[facility] [address] [place], [address] METHADONE Negative Normal < 300 ng/mL [facility] Comment on above: Performed By: #### L 505.5000, L100.0100, L501.9100, L500.2500, L500.3400, L501.2450 ####[facility] [address] [place] [address] OPIATES Negative Normal < 300 ng/mL [facility] Comment on above: Performed By: #### L 505.5000, L100.0100, L501.9100, L500.2500, L500.3400, L501.2450 ####[facility] [address] [place], [phone] OXYCODONE Negative Normal < 100 ng/mL [facility] Comment on above: Performed By: #### L 505.5000, L100.0100, L501.9100, L500.2500, L500.3400, L501.2450 ####[facility] [address] [place], [place], [phone] PCP Negative Normal < 25 ng/mL [facility] Comment on above: Performed By: #### L 505.5000, L100.0100, L501.9100, L500.2500, L500.3400, L501.2450 ####[facility] [address] [place] [address] THC Negative Normal < 50 ng/mL [facility] Comment on above: Performed By: #### L 505.5000, L100.0100, L501.9100, L500.2500, L500.3400, L501.2450 ####[facility] [address] [place], [address] Urine clarityOrdered By: Alonso Ribeiro on 07-11-2024 Clarity (U) Clear Clear [facility] Urine color determinationOrd ered By: Perez Ribeiro on 07-11-2024 Color (U) Yellow Yellow [facility] Urine glucose detectionOrder ed By: Perez Ribeiro on 07-11-2024 Glucose Ql (U) Normal mg/dl Normal [facility] Urine leukocyte esterase det ection by dipstickOrdered By: Perez Ribeiro on 07-11-2024 Leukocyte esterase Test strip Ql (U) Negative Negative [facility] Urine pHOrdered By: Perez plaza on 07-11-2024 pH (U) 8.0 [pH] 5.0 - 8.[address] [facility] Urine phencyclidine (PCP) de tectionOrdered By: Perez Ribeiro on 07-11-2024 Phencyclidine Ql (U) Negative < 25 ng/mL [facility] Urine sediment bacteria coun t by microscopy (number/high power field)Ordered By: Perez Ribeiro on 07-11-2024 Bacteria LM.HPF (Urine sed) [#/Area] 0 /[HPF] None Seen [facility] Urine specific gravity measu rementOrdered By: Perez Ribeiro on 07-11-2024 Specific gravity (U) [Rel density] 1.010 1.002-1.[address] [facility] Urine urobilinogen measureme ntOrdered By: Perez Ribeiro on 07-11-2024 Urobilinogen Ql (U) Normal mg/dl Normal [facility] White blood cell (WBC) count Ordered By: Perez Ribeiro on 07-11-2024 WBC (Bld) [#/Vol] 5.6 10*3/uL 4.4-11.0 [facility] White blood cell countOrdere d By: Perez Ribeiro on 07-11-2024 White blood cell count 0 SEEN /hpf 0-5 [facility] Basic Metabolic Profile (BMP )on 07-10-2024 BUN Normal 4- [facility] Comment on above: Result Comment: Canc elled via OM: Order cancelled - Patient discharged Performed By: #### L 500.2500, L100.0500 ####[facility] [address] [place], [address] BUN/CRE Normal 10-[address] [facility] Comment on above: Result Comment: Canc elled via OM: Order cancelled - Patient discharged Performed By: #### L 500.2500, L100.0500 ####[facility] [address] [place], [address] Calcium Normal 7.6-11.[address] [facility] Comment on above: Result Comment: Canc elled via OM: Order cancelled - Patient discharged Performed By: #### L 500.2500, L100.0500 ####[facility] [address] [place], [address] CL Normal 98-[address] [facility] Comment on above: Result Comment: Canc elled via OM: Order cancelled - Patient discharged Performed By: #### L 500.2500, L100.0500 ####[facility] [address] [place], [address] CO2 Normal 21.0-32.[address] [facility] Comment on above: Result Comment: Canc elled via OM: Order cancelled - Patient discharged Performed By: #### L 500.2500, L100.0500 ####[facility] [address] [place], [address] CREAT,SERUM Normal 0.70-1.[address] [facility] Comment on above: Result Comment: Canc elled via OM: Order cancelled - Patient discharged Performed By: #### L 500.2500, L100.0500 ####[facility] [address] [place], [address] eGFR Normal >[address] [facility] Comment on above: Result Comment: Canc elled via OM: Order cancelled - Patient discharged Performed By: #### L 500.2500, L100.0500 ####[facility] [address] [place], [address] GAP Normal 5-[address] [facility] Comment on above: Result Comment: Canc elled via OM: Order cancelled - Patient discharged Performed By: #### L 500.2500, L100.0500 ####[facility] [address] [place], [address] GLU Normal 70-[address] [facility] Comment on above: Result Comment: Canc elled via OM: Order cancelled - Patient discharged Performed By: #### L 500.2500, L100.0500 ####[facility] [address] [place], [address] Potassium Normal 3.3-5.[address] [facility] Comment on above: Result Comment: Canc elled via OM: Order cancelled - Patient discharged Performed By: #### L 500.2500, L100.0500 ####[facility] [address] [place], [address] Basic Metabolic Profile (BMP) Normal 133-[address] [facility] Comment on above: Result Comment: Canc elled via OM: Order cancelled - Patient discharged Performed By: #### L 500.2500, L100.0500 ####[facility] [address] [place], [address] CBC-Complete Blood Cnt No Di ffon 07-10-2024 HCT Normal 40-[address] [facility] Comment on above: Result Comment: Canc elled via OM: Order cancelled - Patient discharged Performed By: #### L 500.2500, L100.0500 ####[facility] [address] [place], [address] HGB Normal 13.0-16.[address] [facility] Comment on above: Result Comment: Canc elled via OM: Order cancelled - Patient discharged Performed By: #### L 500.2500, L100.0500 ####[facility] [address] [place], [address] MCH Normal 27.0-32.[address] [facility] Comment on above: Result Comment: Canc elled via OM: Order cancelled - Patient discharged Performed By: #### L 500.2500, L100.0500 ####[facility] [address] [place], [address] MCHC Normal 32-[address] [facility] Comment on above: Result Comment: Canc elled via OM: Order cancelled - Patient discharged Performed By: #### L 500.2500, L100.0500 ####[facility] [address] [place], [address] MCV Normal 80-[address] [facility] Comment on above: Result Comment: Canc elled via OM: Order cancelled - Patient discharged Performed By: #### L 500.2500, L100.0500 ####[facility] [address] [place], [address] PLT Normal 150-[address] [facility] Comment on above: Result Comment: Canc elled via OM: Order cancelled - Patient discharged Performed By: #### L 500.2500, L100.0500 ####[facility] [address] [place], [address] RBC Normal 4.6-6.[address] [facility] Comment on above: Result Comment: Canc elled via OM: Order cancelled - Patient discharged Performed By: #### L 500.2500, L100.0500 ####[facility] [address] [place], [address] RDW CV Normal 11.6-14.[address] [facility] Comment on above: Result Comment: Canc elled via OM: Order cancelled - Patient discharged Performed By: #### L 500.2500, L100.0500 ####[facility] [address] [place], [address] RDW SD Normal 35.1-43.[address] [facility] Comment on above: Result Comment: Canc elled via OM: Order cancelled - Patient discharged Performed By: #### L 500.2500, L100.0500 ####[facility] [address] [place], [address] WBC Normal 4.4-11.[address] [facility] Comment on above: Result Comment: Canc elled via OM: Order cancelled - Patient discharged Performed By: #### L 500.2500, L100.0500 ####[facility] [address] [place], [address] Basic Metabolic Profile (BMP )on 07-09-2024 BUN Normal 4-[address] [facility] Comment on above: Result Comment: Canc elled via OM: MD Ordered Performed By: #### L 500.2500 ####[facility] [address] [place], [address] Result Comment: Canc elled via OM: Order cancelled - Patient discharged Performed By: #### L 500.2500, L100.0500 ####[facility] [address] [place], [address] BUN/CRE Normal 10-[address] [facility] Comment on above: Result Comment: Canc elled via OM: MD Ordered Performed By: #### L 500.2500 ####[facility] [address] [place], [address] Result Comment: Canc elled via OM: Order cancelled - Patient discharged Performed By: #### L 500.2500, L100.0500 ####[facility] [facility] [address] [place], [address] Calcium Normal 7.6-11.[address] [facility] Comment on above: Result Comment: Canc elled via OM: MD Ordered Performed By: #### L 500.2500 ####[facility] [address] [place], [address] Result Comment: Canc elled via OM: Order cancelled - Patient discharged Performed By: #### L 500.2500, L100.0500 ####[facility] [address] [place], [address] CL Normal 98-[address] [facility] Comment on above: Result Comment: Canc elled via OM: MD Ordered Performed By: #### L 500.2500 ####[facility] [address] [place], [address] Result Comment: Canc elled via OM: Order cancelled - Patient discharged Performed By: #### L 500.2500, L100.0500 ####[facility] [address] [place], [address] CO2 Normal 21.0-32.[address] [facility] Comment on above: Result Comment: Canc elled via OM: MD Ordered Performed By: #### L 500.2500 ####[facility] [address] [place], [address] Result Comment: Canc elled via OM: Order cancelled - Patient discharged Performed By: #### L 500.2500, L100.0500 ####[facility] [address] [place], [address] CREAT,SERUM Normal 0.70-1.[address] [facility] Comment on above: Result Comment: Canc elled via OM: MD Ordered Performed By: #### L 500.2500 ####[facility] [address] [place], [address] Result Comment: Canc elled via OM: Order cancelled - Patient discharged Performed By: #### L 500.2500, L100.0500 ####[facility] [address] [place], [address] eGFR Normal >[address] [facility] Comment on above: Result Comment: Canc elled via OM: MD Ordered Performed By: #### L 500.2500 ####[facility] [address] [place], [address] Result Comment: Canc elled via OM: Order cancelled - Patient discharged Performed By: #### L 500.2500, L100.0500 ####[facility] [address] [place], [address] GAP Normal 5-[address] [facility] Comment on above: Result Comment: Canc elled via OM: MD Ordered Performed By: #### L 500.2500 ####[facility] [address] [place], [address] Result Comment: Canc elled via OM: Order cancelled - Patient discharged Performed By: #### L 500.2500, L100.0500 ####[facility] [address] [place], [address] GLU Normal 70-[address] [facility] Comment on above: Result Comment: Canc elled via OM: MD Ordered Performed By: #### L 500.2500 ####[facility] [address] [place], [address] Result Comment: Canc elled via OM: Order cancelled - Patient discharged Performed By: #### L 500.2500, L100.0500 ####[facility] [address] [place], [address] Potassium Normal 3.3-5.[address] [facility] Comment on above: Result Comment: Canc elled via OM: MD Ordered Performed By: #### L 500.2500 ####[facility] [address] [place], [address] Result Comment: Canc elled via OM: Order cancelled - Patient discharged Performed By: #### L 500.2500, L100.0500 ####[facility] [address] [place], [address] Basic Metabolic Profile (BMP) Normal 133-[address] [facility] Comment on above: Result Comment: Canc elled via OM: MD Ordered Performed By: #### L 500.2500 ####[facility] [address] [place], [address] Result Comment: Canc elled via OM: Order cancelled - Patient discharged Performed By: #### L 500.2500, L100.0500 ####[facility] [address] [place], [address] CBC-Complete Blood Cnt No Di ffon 07-09-2024 HCT Normal 40-[address] [facility] Comment on above: Result Comment: Canc elled via OM: MD Ordered Performed By: #### L 100.0500 ####[facility] [address] [place], [address] HGB Normal 13.0-16.[address] [facility] Comment on above: Result Comment: Canc elled via OM: MD Ordered Performed By: #### L 100.0500 ####[facility] [address] [place], [address] MCH Normal 27.0-32.[address] [facility] Comment on above: Result Comment: Canc elled via OM: MD Ordered Performed By: #### L 100.0500 ####[facility] [address] [place], [address] MCHC Normal 32-[address] [facility] Comment on above: Result Comment: Canc elled via OM: MD Ordered Performed By: #### L 100.0500 ####[facility] [address] [place], [address] MCV Normal 80-[address] [facility] Comment on above: Result Comment: Canc elled via OM: MD Ordered Performed By: #### L 100.0500 ####[facility] [address] [place], [address] PLT Normal 150-[address] [facility] Comment on above: Result Comment: Canc elled via OM: MD Ordered Performed By: #### L 100.0500 ####[facility] [address] [place], [address] RBC Normal 4.6-6.[address] [facility] Comment on above: Result Comment: Canc elled via OM: MD Ordered Performed By: #### L 100.0500 ####[facility] [address] [place], [address] RDW CV Normal 11.6-14.[address] [facility] Comment on above: Result Comment: Canc elled via OM: MD Ordered Performed By: #### L 100.0500 ####[facility] [address] [place], [address] RDW SD Normal 35.1-43.[address] [facility] Comment on above: Result Comment: Canc elled via OM: MD Ordered Performed By: #### L 100.0500 ####[facility] [address] [place], [address] WBC Normal 4.4-11.[address] [facility] Comment on above: Result Comment: Canc elled via OM: MD Ordered Performed By: #### L 100.0500 ####[facility] [address] [place], [address] HCT Normal 40-[address] [facility] Comment on above: Result Comment: Canc elled via OM: Order cancelled - Patient discharged Performed By: #### L 500.2500, L100.0500 ####[facility] [address] [place], [address] HGB Normal 13.0-16.[address] [facility] Comment on above: Result Comment: Canc elled via OM: Order cancelled - Patient discharged Performed By: #### L 500.2500, L100.0500 ####[facility] [address] [place], [address] MCH Normal 27.0-32.[address] [facility] Comment on above: Result Comment: Canc elled via OM: Order cancelled - Patient discharged Performed By: #### L 500.2500, L100.0500 ####[facility] [address] [place], [address] MCHC Normal 32-[address] [facility] Comment on above: Result Comment: Canc elled via OM: Order cancelled - Patient discharged Performed By: #### L 500.2500, L100.0500 ####[facility] [address] [place], [address] MCV Normal 80-[address] [facility] Comment on above: Result Comment: Canc elled via OM: Order cancelled - Patient discharged Performed By: #### L 500.2500, L100.0500 ####[facility] [address] [place], [address] PLT Normal 150-[address] [facility] Comment on above: Result Comment: Canc elled via OM: Order cancelled - Patient discharged Performed By: #### L 500.2500, L100.0500 ####[facility] [address] [place], [address] RBC Normal 4.6-6.[address] [facility] Comment on above: Result Comment: Canc elled via OM: Order cancelled - Patient discharged Performed By: #### L 500.2500, L100.0500 ####[facility] [address] [place], [address] RDW CV Normal 11.6-14.[address] [facility] Comment on above: Result Comment: Canc elled via OM: Order cancelled - Patient discharged Performed By: #### L 500.2500, L100.0500 ####[facility] [address] [place], [address] RDW SD Normal 35.1-43.[address] [facility] Comment on above: Result Comment: Canc elled via OM: Order cancelled - Patient discharged Performed By: #### L 500.2500, L100.0500 ####[facility] [address] [place], [address] WBC Normal 4.4-11.[address] [facility] Comment on above: Result Comment: Canc elled via OM: Order cancelled - Patient discharged Performed By: #### L 500.2500, L100.0500 ####[facility] [address] [place], [address] Basic Metabolic Profile (BMP )on 07-08-2024 BUN Normal 4-[address] [facility] Comment on above: Result Comment: Canc elled via OM: Order cancelled - Patient discharged Performed By: #### L 500.2500, L100.0500 ####[facility] [address] [place], [address] BUN/CRE Normal 10-[address] [facility] Comment on above: Result Comment: Canc elled via OM: Order cancelled - Patient discharged Performed By: #### L 500.2500, L100.0500 ####[facility] [address] [place], [address] Calcium Normal 7.6-11.[address] [facility] Comment on above: Result Comment: Canc elled via OM: Order cancelled - Patient discharged Performed By: #### L 500.2500, L100.0500 ####[facility] [address] [place], [address] CL Normal 98-[address] [facility] Comment on above: Result Comment: Canc elled via OM: Order cancelled - Patient discharged Performed By: #### L 500.2500, L100.0500 ####[facility] [address] [place], [address] CO2 Normal 21.0-32.[address] [facility] Comment on above: Result Comment: Canc elled via OM: Order cancelled - Patient discharged Performed By: #### L 500.2500, L100.0500 ####[facility] [address] [place], [address] CREAT,SERUM Normal 0.70-1.[address] [facility] Comment on above: Result Comment: Canc elled via OM: Order cancelled - Patient discharged Performed By: #### L 500.2500, L100.0500 ####[facility] [address] [place], [address] eGFR Normal >[address] [facility] Comment on above: Result Comment: Canc elled via OM: Order cancelled - Patient discharged Performed By: #### L 500.2500, L100.0500 ####[facility] [address] [place], [address] GAP Normal 5-[address] [facility] Comment on above: Result Comment: Canc elled via OM: Order cancelled - Patient discharged Performed By: #### L 500.2500, L100.0500 ####[facility] [address] [place], [address] GLU Normal 70-[address] [facility] Comment on above: Result Comment: Canc elled via OM: Order cancelled - Patient discharged Performed By: #### L 500.2500, L100.0500 ####[facility] [address] [place], [address] Potassium Normal 3.3-5.[address] [facility] Comment on above: Result Comment: Canc elled via OM: Order cancelled - Patient discharged Performed By: #### L 500.2500, L100.0500 ####[facility] [address] [place], [address] Basic Metabolic Profile (BMP) Normal 133-[address] [facility] Comment on above: Result Comment: Canc elled via OM: Order cancelled - Patient discharged Performed By: #### L 500.2500, L100.0500 ####[facility] [address] [place], [address] CBC-Complete Blood Cnt No Di ffon 07-08-2024 HCT Normal 40-[address] [facility] Comment on above: Result Comment: Canc elled via OM: Order cancelled - Patient discharged Performed By: #### L 500.2500, L100.0500 ####[facility] [address] [place], [address] HGB Normal 13.0-16.[address] [facility] Comment on above: Result Comment: Canc elled via OM: Order cancelled - Patient discharged Performed By: #### L 500.2500, L100.0500 ####[facility] [address] [place], [address] MCH Normal 27.0-32.[address] [facility] Comment on above: Result Comment: Canc elled via OM: Order cancelled - Patient discharged Performed By: #### L 500.2500, L100.0500 ####[facility] [address] [place], [address] MCHC Normal 32-[address] [facility] Comment on above: Result Comment: Canc elled via OM: Order cancelled - Patient discharged Performed By: #### L 500.2500, L100.0500 ####[facility] [address] [place], [address] MCV Normal 80-[address] [facility] Comment on above: Result Comment: Canc elled via OM: Order cancelled - Patient discharged Performed By: #### L 500.2500, L100.0500 ####[facility] [address] [place], [address] PLT Normal 150-[address] [facility] Comment on above: Result Comment: Canc elled via OM: Order cancelled - Patient discharged Performed By: #### L 500.2500, L100.0500 ####[facility] [address] [place], [address] RBC Normal 4.6-6.[address] [facility] Comment on above: Result Comment: Canc elled via OM: Order cancelled - Patient discharged Performed By: #### L 500.2500, L100.0500 ####[facility] [address] [place], [address] RDW CV Normal 11.6-14.[address] [facility] Comment on above: Result Comment: Canc elled via OM: Order cancelled - Patient discharged Performed By: #### L 500.2500, L100.0500 ####[facility] [address] [place], [address] RDW SD Normal 35.1-43.[address] [facility] Comment on above: Result Comment: Canc elled via OM: Order cancelled - Patient discharged Performed By: #### L 500.2500, L100.0500 ####[facility] [address] [place], [address] WBC Normal 4.4-11.[address] [facility] Comment on above: Result Comment: Canc elled via OM: Order cancelled - Patient discharged Performed By: #### L 500.2500, L100.0500 ####[facility] [address] [place], [address] ANCAon 07-07-2024 Atypical pANCA <1:20 Normal Neg:<1:[address] [facility] Comment on above: Result Comment: The atypical pANCA pattern has been observed in asignificant percentage of patients with ulcerative colitis,primary sclerosing cholangitis and autoimmune hepatitis. Performed By: #### L 3300.1200, L3600.4030, L3100.3425, L501.6710, L3400.8000, L3410.2350, L101.9900 ####[facility] [address] [place], [address] Cytoplasmic Ab <1:20 Normal Neg:<1:[address] [facility] Comment on above: Performed By: #### L 3300.1200, L3600.4030, L3100.3425, L501.6710, L3400.8000, L3410.2350, L101.9900 ####[facility] [address] [place], [address] Perinuclear Ab. <1:20 Normal Neg:<1:[address] [facility] Comment on above: Result Comment: The presence of positive fluorescence exhibiting P-ANCA orC-ANCA patterns alone is not specific for the diagnosis ofWegener's Granulomatosis (WG) or microscopic polyangiitis.Decisions about treatment should not be based solely onANCA IFA results. The [employer] Consensusrecommends follow up testing of positive sera with both VT-3 and MPO-ANCA enzyme immunoassays. As many as 5% serumsamples are positive only by EIA. Ref. AM J Clin Iislwz4593;111:507-513. Performed By: #### L 3300.1200, L3600.4030, L3100.3425, L501.6710, L3400.8000, L3410.2350, L101.9900 ####[facility] [address] [place], [address] Basic Metabolic Profile (BMP )on 07-07-2024 BUN Normal 4-[address] [facility] Comment on above: Result Comment: Canc elled via OM: MD Ordered Performed By: #### L 500.2500 ####[facility] [address] [place], [address] Result Comment: Canc elled via OM: Order cancelled - Patient discharged Performed By: #### L 500.2500, L100.0500 ####[facility] [address] [place], [address] BUN/CRE Normal 10-[address] [facility] Comment on above: Result Comment: Canc elled via OM: MD Ordered Performed By: #### L 500.2500 ####[facility] [address] [place], [address] Result Comment: Canc elled via OM: Order cancelled - Patient discharged Performed By: #### L 500.2500, L100.0500 ####[facility] [address] [place], [address] Calcium Normal 7.6-11.[address] [facility] Comment on above: Result Comment: Canc elled via OM: MD Ordered Performed By: #### L 500.2500 ####[facility] [address] [place], [address] Result Comment: Canc elled via OM: Order cancelled - Patient discharged Performed By: #### L 500.2500, L100.0500 ####[facility] [address] [place], [address] CL Normal 98-[address] [facility] Comment on above: Result Comment: Canc elled via OM: MD Ordered Performed By: #### L 500.2500 ####[facility] [address] [place], [address] Result Comment: Canc elled via OM: Order cancelled - Patient discharged Performed By: #### L 500.2500, L100.0500 ####[facility] [address] [place], [address] CO2 Normal 21.0-32.[address] [facility] Comment on above: Result Comment: Canc elled via OM: MD Ordered Performed By: #### L 500.2500 ####[facility] [address] [place], [address] Result Comment: Canc elled via OM: Order cancelled - Patient discharged Performed By: #### L 500.2500, L100.0500 ####[facility] [address] [place], [address] CREAT,SERUM Normal 0.70-1.[address] [facility] Comment on above: Result Comment: Canc elled via OM: MD Ordered Performed By: #### L 500.2500 ####[facility] [address] [place], [address] Result Comment: Canc elled via OM: Order cancelled - Patient discharged Performed By: #### L 500.2500, L100.0500 ####[facility] [address] [place], [address] eGFR Normal >[address] [facility] Comment on above: Result Comment: Canc elled via OM: MD Ordered Performed By: #### L 500.2500 ####[facility] [address] [place], [address] Result Comment: Canc elled via OM: Order cancelled - Patient discharged Performed By: #### L 500.2500, L100.0500 ####[facility] [address] [place], [address] GAP Normal 5-[address] [facility] Comment on above: Result Comment: Canc elled via OM: MD Ordered Performed By: #### L 500.2500 ####[facility] [address] [place], [address] Result Comment: Canc elled via OM: Order cancelled - Patient discharged Performed By: #### L 500.2500, L100.0500 ####[facility] [address] [place], [address] GLU Normal 70-[address] [facility] Comment on above: Result Comment: Canc elled via OM: MD Ordered Performed By: #### L 500.2500 ####[facility] [address] [place], [address] Result Comment: Canc elled via OM: Order cancelled - Patient discharged Performed By: #### L 500.2500, L100.0500 ####[facility] [address] [place], [address] Potassium Normal 3.3-5.[address] [facility] Comment on above: Result Comment: Canc elled via OM: MD Ordered Performed By: #### L 500.2500 ####[facility] [address] [place], [address] Result Comment: Canc elled via OM: Order cancelled - Patient discharged Performed By: #### L 500.2500, L100.0500 ####[facility] [address] [place], [address] Basic Metabolic Profile (BMP) Normal 133-[address] [facility] Comment on above: Result Comment: Canc elled via OM: MD Ordered Performed By: #### L 500.2500 ####[facility] [address] [place], [address] Result Comment: Canc elled via OM: Order cancelled - Patient discharged Performed By: #### L 500.2500, L100.0500 ####[facility] [address] [place], [address] CBC-Complete Blood Cnt No Di ffon 07-07-2024 HCT Normal 40-[address] [facility] Comment on above: Result Comment: Canc elled via OM: MD Ordered Performed By: #### L 100.0500 ####[facility] [address] [place], [address] HGB Normal 13.0-16.[address] [facility] Comment on above: Result Comment: Canc elled via OM: MD Ordered Performed By: #### L 100.0500 ####[facility] [address] [place], [address] MCH Normal 27.0-32.[address] [facility] Comment on above: Result Comment: Canc elled via OM: MD Ordered Performed By: #### L 100.0500 ####[facility] [address] [place], [address] MCHC Normal 32-[address] [facility] Comment on above: Result Comment: Canc elled via OM: MD Ordered Performed By: #### L 100.0500 ####[facility] [address] [place], [address] MCV Normal 80-[address] [facility] Comment on above: Result Comment: Canc elled via OM: MD Ordered Performed By: #### L 100.0500 ####[facility] [address] [place], [address] PLT Normal 150-[address] [facility] Comment on above: Result Comment: Canc elled via OM: MD Ordered Performed By: #### L 100.0500 ####[facility] [address] [place], [address] RBC Normal 4.6-6.[address] [facility] Comment on above: Result Comment: Canc elled via OM: MD Ordered Performed By: #### L 100.0500 ####[facility] [address] [place], [address] RDW CV Normal 11.6-14.[address] [facility] Comment on above: Result Comment: Canc elled via OM: MD Ordered Performed By: #### L 100.0500 ####[facility] [address] [place], [address] RDW SD Normal 35.1-43.[address] [facility] Comment on above: Result Comment: Canc elled via OM: MD Ordered Performed By: #### L 100.0500 ####[facility] [address] [place], [address] WBC Normal 4.4-11.[address] [facility] Comment on above: Result Comment: Canc elled via OM: MD Ordered Performed By: #### L 100.0500 ####[facility] [address] [place], [address] HCT Normal 40-[address] [facility] Comment on above: Result Comment: Canc elled via OM: Order cancelled - Patient discharged Performed By: #### L 500.2500, L100.0500 ####[facility] [address] [place], [address] HGB Normal 13.0-16.[address] [facility] Comment on above: Result Comment: Canc elled via OM: Order cancelled - Patient discharged Performed By: #### L 500.2500, L100.0500 ####[facility] [address] [place], [address] MCH Normal 27.0-32.[address] [facility] Comment on above: Result Comment: Canc elled via OM: Order cancelled - Patient discharged Performed By: #### L 500.2500, L100.0500 ####[facility] [address] [place], [address] MCHC Normal 32-[address] [facility] Comment on above: Result Comment: Canc elled via OM: Order cancelled - Patient discharged Performed By: #### L 500.2500, L100.0500 ####[facility] [address] [place], [address] MCV Normal 80-[address] [facility] Comment on above: Result Comment: Canc elled via OM: Order cancelled - Patient discharged Performed By: #### L 500.2500, L100.0500 ####[facility] [address] [place], [address] PLT Normal 150-[address] [facility] Comment on above: Result Comment: Canc elled via OM: Order cancelled - Patient discharged Performed By: #### L 500.2500, L100.0500 ####[facility] [address] [place], [address] RBC Normal 4.6-6.[address] [facility] Comment on above: Result Comment: Canc elled via OM: Order cancelled - Patient discharged Performed By: #### L 500.2500, L100.0500 ####[facility] [address] [place], [address] RDW CV Normal 11.6-14.[address] [facility] Comment on above: Result Comment: Canc elled via OM: Order cancelled - Patient discharged Performed By: #### L 500.2500, L100.0500 ####[facility] [address] [place], [address] RDW SD Normal 35.1-43.[address] [facility] Comment on above: Result Comment: Canc elled via OM: Order cancelled - Patient discharged Performed By: #### L 500.2500, L100.0500 ####[facility] [address] [place], [address] WBC Normal 4.4-11.[address] [facility] Comment on above: Result Comment: Canc elled via OM: Order cancelled - Patient discharged Performed By: #### L 500.2500, L100.0500 ####[facility] [address] [place], [address] Celiac AB,Comprehensiveon ANTIGLIADIN IGA 2 units Normal 0-[address] [facility] Comment on above: Result Comment: Nega tive 0 - 19 Weak Positive 20 - 30 Moderate to Strong Positive >30 Performed By: #### L 3300.1200, L3600.4030, L3100.3425, L501.6710, L3400.8000, L3410.2350, L101.9900 ####[facility] [address] [place], [address] ANTIGLIADIN IGG <1 Normal 0-[address] [facility] Comment on above: Result Comment: Nega tive 0 - 19 Weak Positive 20 - 30 Moderate to Strong Positive >30 Performed By: #### L 3300.1200, L3600.4030, L3100.3425, L501.6710, L3400.8000, L3410.2350, L101.9900 ####[facility] [address] [place], [place], [address] ENDOMYSIAL IGA Negative Normal Negative [facility] Comment on above: Performed By: #### L 3300.1200, L3600.4030, L3100.3425, L501.6710, L3400.8000, L3410.2350, L101.9900 ####[facility] [address] [place], [address] tTG IGA <2 Normal 0-[address] [facility] Comment on above: Result Comment: Nega tive 0 - 3 Weak Positive 4 - 10 Positive >10 Tissue Transglutaminase (tTG) has been identified as the endomysial antigen. Studies have demonstr- ated that endomysial IgA antibodies have over 99% specificity for gluten sensitive enteropathy. Performed By: #### L 3300.1200, L3600.4030, L3100.3425, L501.6710, L3400.8000, L3410.2350, L101.9900 ####[facility] [address] [place], [address] tTG IGG <2 Normal 0-[address] [facility] Comment on above: Result Comment: Nega tive 0 - 5 Weak Positive 6 - 9 Positive >9 Performed By: #### L 3300.1200, L3600.4030, L3100.3425, L501.6710, L3400.8000, L3410.2350, L101.9900 ####[facility] [address] [place], [address] HELENA + Protein Elect, Serumon 07-07-2024 Albumin [Mass/Vol] 2.1 g/dL Low 2.9-4.4 [facility] Comment on above: Order Comment: N Performed By: #### L 3300.1200, L3600.4030, L3100.3425, L501.6710, L3400.8000, L3410.2350, L101.9900 ####[facility] [address] [place], [address] Albumin/Globulin [Mass ratio] 1.1 {ratio} Normal 0.7-1.[address] [facility] Comment on above: Order Comment: N Performed By: #### L 3300.1200, L3600.4030, L3100.3425, L501.6710, L3400.8000, L3410.2350, L101.9900 ####[facility] [address] [place], [address] VWALR-1-IBTU 0.2 g/dL Normal 0.0-0.[address] [facility] Comment on above: Order Comment: N Performed By: #### L 3300.1200, L3600.4030, L3100.3425, L501.6710, L3400.8000, L3410.2350, L101.9900 ####[facility] [address] [place], [address] NTHWG-2-THFQ 0.4 g/dL Normal 0.4-1.[address] [facility] Comment on above: Order Comment: N Performed By: #### L 3300.1200, L3600.4030, L3100.3425, L501.6710, L3400.8000, L3410.2350, L101.9900 ####[facility] [address] [place], [address] BETA GLOBULIN 0.7 g/dL Normal 0.7-1.[address] [facility] Comment on above: Order Comment: N Performed By: #### L 3300.1200, L3600.4030, L3100.3425, L501.6710, L3400.8000, L3410.2350, L101.9900 ####[facility] [address] [place], [address] GAMMA GLOBULIN 0.7 g/dL Normal 0.4-1.[address] [facility] Comment on above: Order Comment: N Performed By: #### L 3300.1200, L3600.4030, L3100.3425, L501.6710, L3400.8000, L3410.2350, L101.9900 ####[facility] [address] [place], [address] Globulin (S) [Mass/Vol] 2.0 g/dL Abnormal 2.2-3.9 [facility] Comment on above: Order Comment: N Performed By: #### L 3300.1200, L3600.4030, L3100.3425, L501.6710, L3400.8000, L3410.2350, L101.9900 ####[facility] [address] [place], [address] HELENA RESULT,S Comment Normal . [facility] Comment on above: Order Comment: N Result Comment: No m onoclonality detected. Performed By: #### L 3300.1200, L3600.4030, L3100.3425, L501.6710, L3400.8000, L3410.2350, L101.9900 ####[facility] [address] [place], [address] IMMUNOGLOB A QN 318 mg/dL Normal 61-[address] [facility] Comment on above: Order Comment: N Performed By: #### L 3300.1200, L3600.4030, L3100.3425, L501.6710, L3400.8000, L3410.2350, L101.9900 ####[facility] [address] [place], [address] IMMUNOGLOB G QN 839 mg/dL Normal 603-[address] [facility] Comment on above: Order Comment: N Performed By: #### L 3300.1200, L3600.4030, L3100.3425, L501.6710, L3400.8000, L3410.2350, L101.9900 ####[facility] [address] [place], [address] IMMUNOGLOB M QN 48 mg/dL Normal 20-[address] [facility] Comment on above: Order Comment: N Performed By: #### L 3300.1200, L3600.4030, L3100.3425, L501.6710, L3400.8000, L3410.2350, L101.9900 ####[facility] [address] [place], [address] M-Herb Not Observed Normal Not Observed [facility] Comment on above: Order Comment: N Performed By: #### L 3300.1200, L3600.4030, L3100.3425, L501.6710, L3400.8000, L3410.2350, L101.9900 ####[facility] [address] [place], [address] NOTE: Comment Normal . [facility] Comment on above: Order Comment: N Result Comment: Prot ein electrophoresis scan will follow via computer,mail, or textile designer delivery. Performed By: #### L 3300.1200, L3600.4030, L3100.3425, L501.6710, L3400.8000, L3410.2350, L101.9900 ####[facility] [address] [place], [address] Protein [Mass/Vol] 4.1 g/dL Low 6.0-8.5 [facility] Comment on above: Order Comment: N Performed By: #### L 3300.1200, L3600.4030, L3100.3425, L501.6710, L3400.8000, L3410.2350, L101.9900 ####[facility] [address] [place], [address] Immunofixation Urineon 07-07 HELENA Urine Comment Normal . [facility] Comment on above: Result Comment: No m onoclonality detected.Performed at: [facility] [address] [id number] Director: Agustin Arredondo PhD, Phone: [phone] Performed By: #### L 3300.1200, L3600.4030, L3100.3425, L501.6710, L3400.8000, L3410.2350, L101.9900 ####[facility] [address] [place], [address] Quantiferon TB-Gold+on 07-07 QFT MITOGEN JENIFER 2.42 IU/mL Normal . [facility] Comment on above: Performed By: #### L 3300.1200, L3600.4030, L3100.3425, L501.6710, L3400.8000, L3410.2350, L101.9900 ####[facility] [address] [place], [address] QFT NIL VALUE 0.04 IU/mL Normal . [facility] Comment on above: Performed By: #### L 3300.1200, L3600.4030, L3100.3425, L501.6710, L3400.8000, L3410.2350, L101.9900 ####[facility] [address] [place], [address] QFT TB GOLD+ Comment Normal . [facility] Comment on above: Result Comment: Amari tiFERON-TB [...] 3300.1200, L3600.4030, L3100.3425, L501.6710, L3400.8000, L3410.2350, L101.9900 ####[facility] [address] [place], [address] QFT TB POS CRIT Negative Normal Negative [facility] Comment on above: Result Comment: No r [...] 3300.1200, L3600.4030, L3100.3425, L501.6710, L3400.8000, L3410.2350, L101.9900 ####[facility] [address] [place], [place], [id number]) QFT TB1+ AG JENIFER 0.04 IU/mL Normal . [facility] Comment on above: Performed By: #### L 3300.1200, L3600.4030, L3100.3425, L501.6710, L3400.8000, L3410.2350, L101.9900 ####[facility] [address] [place], [address] QFT TB2+ AG JENIFER 0.03 IU/mL Normal . [facility] Comment on above: Performed By: #### L 3300.1200, L3600.4030, L3100.3425, L501.6710, L3400.8000, L3410.2350, L101.9900 ####[facility] [address] [place], [place], [id number] Anion gap in Serum or Plasma Ordered By: Chris Aragon on 07-06-2024 Anion gap [Moles/Vol] 6 mmol/L 06-22 [facility] BUN/creatinine ratioOrdered By: Chris Aragno on 07-06-2024 Urea nitrogen/Creatinine [Mass ratio] 14.9 mg/mg 11-[address] [facility] Basic Metabolic Profile (BMP )on 07-06-2024 BUN/CRE 14.9 RATIO Normal 10-[address] [facility] Comment on above: Performed By: #### L 500.2500, L100.0500 ####[facility] [address] [place], [address] Calcium [Mass/Vol] 7.8 mg/dL Normal 7.6-11.0 [facility] Comment on above: Performed By: #### L 500.2500, L100.0500 ####[facility] [address] [place], [address] Chloride [Moles/Vol] 102 mmol/L Normal 98-108 [facility] Comment on above: Performed By: #### L 500.2500, L100.0500 ####[facility] [address] [place], [address] CO2 [Moles/Vol] 26.4 mmol/L Normal 21.0-32.[address] [facility] Comment on above: Performed By: #### L 500.2500, L100.0500 ####[facility] [address] [place], [address] Creatinine [Mass/Vol] 1.49 mg/dL High 0.70-1.20 [facility] Comment on above: Performed By: #### L 500.2500, L100.0500 ####[facility] [address] [place], [address] ECRCL 48.90 ml/min Low 50-[address] [facility] Comment on above: Performed By: #### L 500.2500, L100.0500 ####[facility] [address] [place], [address] GAP 6 Normal 5-[address] [facility] Comment on above: Performed By: #### L 500.2500, L100.0500 ####[facility] [address] [place], [address] GFR/1.73 sq M.predicted among non-blacks MDRD (S/P/Bld) [Vol rate/Area] 53 mL/min/{1.73_m2} Low >[address] [facility] Comment on above: Result Comment: mL/m in/1.73m2 CKD-EPI Creatinine Equation (2020) Performed By: #### L 500.2500, L100.0500 ####[facility] [address] [place], [address] Glucose [Mass/Vol] 145 mg/dL High 70-99 [facility] Comment on above: Performed By: #### L 500.2500, L100.0500 ####[facility] [address] [place], [address] Potassium [Moles/Vol] 5.1 mmol/L Normal 3.3-5.1 [facility] Comment on above: Performed By: #### L 500.2500, L100.0500 ####[facility] [address] [place], [address] Sodium [Moles/Vol] 135 mmol/L Normal 133-145 [facility] Comment on above: Performed By: #### L 500.2500, L100.0500 ####[facility] [address] [place], [address] Urea nitrogen [Mass/Vol] 22 mg/dL High 4-[address] [facility] Comment on above: Performed By: #### L 500.2500, L100.0500 ####[facility] [address] [place], [address] Bedside Glucoseon 07-06-2024 FINGERSTICK GLU 213 mg/dL High 74-[address] [facility] Comment on above: Result Comment: DAYANARA MORENO OF PATIENT CARE PER NURSING PROTOCOL Performed By: #### L 501.080 ####[facility] [address] [place], [address] CBC-Complete Blood Cnt No Di ffon 07-06-2024 Erythrocyte distribution width (RBC) [Ratio] 17.2 % High 11.6-14.[address] [facility] Comment on above: Performed By: #### L 500.2500, L100.0500 ####[facility] [address] [place], [address] Hematocrit (Bld) [Volume fraction] 25.1 % Low 40-[address] [facility] Comment on above: Performed By: #### L 500.2500, L100.0500 ####[facility] [address] [place], [address] Hemoglobin (Bld) [Mass/Vol] 8.3 g/dL Low 13.0-16.[address] [facility] Comment on above: Performed By: #### L 500.2500, L100.0500 ####[facility] [address] [place], [address] MCH (RBC) [Entitic mass] 36.2 pg High 27.0-32.[address] [facility] Comment on above: Performed By: #### L 500.2500, L100.0500 ####[facility] [address] [place], [address] MCHC (RBC) [Mass/Vol] 33.1 g/dL Normal 32-36 [facility] Comment on above: Performed By: #### L 500.2500, L100.0500 ####[facility] [address] [place], [address] MCV (RBC) [Entitic vol] 109.6 fL High 80-94 [facility] Comment on above: Performed By: #### L 500.2500, L100.0500 ####[facility] [address] [place], [address] Platelet mean volume (Bld) [Entitic vol] 11.2 fL Normal 6.2-12.[address] [facility] Comment on above: Performed By: #### L 500.2500, L100.0500 ####[facility] [address] [place], [address] Platelets (Bld) [#/Vol] 127 10*3/uL Low 150-[address] [facility] Comment on above: Performed By: #### L 500.2500, L100.0500 ####[facility] [address] [place], [address] RBC (Bld) [#/Vol] 2.29 10*6/uL Low 4.6-6.2 [facility] Comment on above: Performed By: #### L 500.2500, L100.0500 ####[facility] [address] [place], [address] RDW SD 68.8 fl High 35.1-43.[address] [facility] Comment on above: Performed By: #### L 500.2500, L100.0500 ####[facility] [address] [place], [address] WBC (Bld) [#/Vol] 3.9 10*3/uL Low 4.4-11.0 [facility] Comment on above: Performed By: #### L 500.2500, L100.0500 ####[facility] [address] [place], [address] Carbon dioxide, total [Moles /volume] in Central venous bloodOrdered By: Chris Aragon on 07-06-2024 CO2 [Moles/Vol] 26.4 mmol/L 21.0-32.[address] [facility] Chloride assayOrdered By: Golden Aragon on 07-06-2024 Chloride [Moles/Vol] 102 mmol/L 98-108 [facility] Discharge Instructionon 06-09 Discharge Instruction Normal [facility] Erythrocyte distribution wid th ratioOrdered By: Chris Aragon on 07-06-2024 Erythrocyte distribution width (RBC) [Ratio] 17.2 % High 11.6-14.[address] [facility] Erythrocyte distribution wid th standard deviationOrdered By: Chris Aragon on 07-06-2024 Erythrocyte distribution width (RBC) [Ratio] 68.8 fl High 35.1-43.[address] [facility] Glomerular filtration rate ( GFR) estimation/1.73 sq m using serum, plasma, or whole bOrdered By: Chris Aragon on 07-06-2024 GFR/1.73 sq M.predicted among non-blacks MDRD (S/P/Bld) [Vol rate/Area] 53 mL/min/{1.73_m2} Low >[address] [facility] deOrdered By: Chris Aragon on 07-06-2024 Glucose [Mass/Vol] 213 mg/dL High 74-106 [facility] Hematocrit Auto (Bld) [Volum e fraction]Ordered By: Chris Aragon on 07-06-2024 Hematocrit (Bld) [Volume fraction] 25.1 % Low 40-[address] [facility] Hemoglobin measurementOrdere d By: Chris Aragon on 07-06-2024 Hemoglobin (Bld) [Mass/Vol] 8.3 g/dL Low 13.0-16.[address] [facility] MCV (mean corpuscular volume ) determinationOrdered By: Chris Aragon on 07-06-2024 MCV (RBC) [Entitic vol] 109.6 fL High 80-94 [facility] Mean corpuscular hemoglobin (MCH) determinationOrdered By: Chris Aragon on 07-06-2024 MCH (RBC) [Entitic mass] 36.2 pg High 27.0-32.[address] [facility] Platelet countOrdered By: Golden Aragon on 07-06-2024 Platelets (Bld) [#/Vol] 127 10*3/uL Low 150-[address] [facility] Potassium measurement (mass/ volume)Ordered By: Chris Aragon on 07-06-2024 Potassium (Unsp spec) [Mass/Vol] 5.1 mmol/L 3.3-5.[address] [facility] RBC Auto (Bld) [#/Vol]Ordere d By: Chris Aragon on 07-06-2024 RBC (Bld) [#/Vol] 2.29 10*6/uL Low 4.6-6.2 [facility] Serum creatinine measurement (mass/volume)Ordered By: Chris Aragon on 07-06-2024 Creatinine [Mass/Vol] 1.49 mg/dL High 0.70-1.20 [facility] Serum glucose measurement (m ass/volume)Ordered By: Chris Aragon on 07-06-2024 Glucose [Mass/Vol] 145 mg/dL High 70-99 [facility] Serum or plasma calcium luciana urement (mass/volume)Ordered By: Chris Aragon on 07-06-2024 Calcium [Mass/Vol] 7.8 mg/dL 7.6-11.0 [facility] Serum or plasma urea nitroge n measurement (mass/volume)Ordered By: Chris Aragon on 07-06-2024 Urea nitrogen [Mass/Vol] 22 mg/dL High 4-[address] [facility] Sodium levelOrdered By: Curly Aragon on 07-06-2024 Sodium [Moles/Vol] 135 mmol/L 133-145 [facility] White blood cell (WBC) count Ordered By: Chris Aragon on 07-06-2024 WBC (Bld) [#/Vol] 3.9 10*3/uL Low 4.4-11.0 [facility] GARETT Comprehensive Panelon ANTI-DNA (DS)AB <1 Normal 0-[address] [facility] Comment on above: Result Comment: Nega tive <5 Equivocal 5 - 9 Positive >9 Performed By: #### L 3100.5440 ####[facility] [address] [place], [place], [id number] ANTI-SS-A < 0.2 Normal 0.0-0.[address] [facility] Comment on above: Performed By: #### L 3100.5440 ####[facility] [address] [place], [place], [id number] ANTI-SS-B < 0.2 Normal 0.0-0.[address] [facility] Comment on above: Performed By: #### L 3100.5440 ####[facility] [address] [place], [place], [id number] Anti-Mitochondrial ABon 05- ANTIMITOCHON AB <20.0 Normal 0.0-20.[address] [facility] Comment on above: Result Comment: Nega tive 0.0 - 20.0 Equivocal 20.1 - 24.9 Positive >24.9Mitochondrial (M2) Antibodies are found in 90-96% ofpatients with primary biliary cirrhosis.Performed at: [facility] [employer] [id number] Director: Agustin Arredondo PhD, Phone: [phone] Performed By: #### L 800.1280, L865.1996 ####[facility] [address] [place], [address] Anti-Smooth Muscle ABSon ANTISMOOTH MUSC 2 Units Normal 0- [facility] Comment on above: Result Comment: Nega tive 0 - 19 Weak positive 20 - 30 Moderate to strong positive >30 Actin Antibodies are found in 52-85% of patients with autoimmune hepatitis or chronic active hepatitis and in 22% of patients with primary biliary cirrhosis.Performed at: [employer] [id number] Director: Agustin Arredondo PhD, Phone: [phone] Performed By: #### L 800.1280, L511.3795 ####[facility] [address] [place], [place], [id number] Basic Metabolic Profile (BMP )on 07-05-2024 BUN/CRE 13.5 RATIO Normal 10-[address] [facility] Comment on above: Performed By: #### L 500.2500 ####[facility] [address] [place], [place], [address] Calcium [Mass/Vol] 7.9 mg/dL Normal 7.6-11.0 [facility] Comment on above: Performed By: #### L 500.2500 ####[facility] [address] [place], [place], [id number] Chloride [Moles/Vol] 96 mmol/L Low 98-108 [facility] Comment on above: Performed By: #### L 500.2500 ####[facility] [address] [place], [address] CO2 [Moles/Vol] 28.7 mmol/L Normal 21.0-32.[address] [facility] Comment on above: Performed By: #### L 500.2500 ####[facility] [address] [place], [address] Creatinine [Mass/Vol] 1.70 mg/dL High 0.70-1.20 [facility] Comment on above: Performed By: #### L 500.2500 ####[facility] [address] [place], [address] ECRCL 44.02 ml/min Low 50-[address] [facility] Comment on above: Performed By: #### L 500.2500 ####[facility] [address] [place], [address] GAP 7 Normal 5-[address] [facility] Comment on above: Performed By: #### L 500.2500 ####[facility] [address] [place], [address] GFR/1.73 sq M.predicted among non-blacks MDRD (S/P/Bld) [Vol rate/Area] 45 mL/min/{1.73_m2} Low >[address] [facility] Comment on above: Result Comment: mL/m in/1.73m2 CKD-EPI Creatinine Equation (2020) Performed By: #### L 500.2500 ####[facility] [address] [place], [address] Glucose [Mass/Vol] 136 mg/dL High 70-99 [facility] Comment on above: Performed By: #### L 500.2500 ####[facility] [address] [place], [address] Potassium [Moles/Vol] 5.1 mmol/L Normal 3.3-5.1 [facility] Comment on above: Performed By: #### L 500.2500 ####[facility] [address] [place], [address] Sodium [Moles/Vol] 132 mmol/L Low 133-145 [facility] Comment on above: Performed By: #### L 500.2500 ####[facility] [address] [place], [address] Urea nitrogen [Mass/Vol] 23 mg/dL High 4-[address] [facility] Comment on above: Performed By: #### L 500.2500 ####[facility] [address] [place], [address] Bedside Glucoseon 07-05-2024 FINGERSTICK GLU 108 mg/dL High 74-[address] [facility] Comment on above: Result Comment: DAYANARA GEMENT OF PATIENT CARE PER NURSING PROTOCOL Performed By: #### L 501.080 ####[facility] [address] [place], [address] FINGERSTICK GLU 181 mg/dL High 74-[address] [facility] Comment on above: Result Comment: DAYANARA GEMENT OF PATIENT CARE PER NURSING PROTOCOL Performed By: #### L 501.080 ####[facility] [address] [place], [address] FINGERSTICK GLU 147 mg/dL High 74-[address] [facility] Comment on above: Result Comment: DAYANARA GEMENT OF PATIENT CARE PER NURSING PROTOCOL Performed By: #### L 501.080 ####[facility] [address] [place], [address] FINGERSTICK GLU 210 mg/dL High 74-[address] [facility] Comment on above: Result Comment: DAYANARA GEMENT OF PATIENT CARE PER NURSING PROTOCOL Performed By: #### L 501.080 ####[facility] [address] [place], [address] CBC-Complete Blood Cnt No Di ffon 07-05-2024 Erythrocyte distribution width (RBC) [Ratio] 16.7 % High 11.6-14.[address] [facility] Comment on above: Performed By: #### L 100.0500 ####[facility] [address] [place], [address] Hematocrit (Bld) [Volume fraction] 26.7 % Low 40-[address] [facility] Comment on above: Performed By: #### L 100.0500 ####[facility] [address] [place], [address] Hemoglobin (Bld) [Mass/Vol] 8.9 g/dL Low 13.0-16.[address] [facility] Comment on above: Performed By: #### L 100.0500 ####[facility] [address] [place], [address] MCH (RBC) [Entitic mass] 36.2 pg High 27.0-32.[address] [facility] Comment on above: Performed By: #### L 100.0500 ####[facility] [address] [place], [address] MCHC (RBC) [Mass/Vol] 33.3 g/dL Normal 32-36 [facility] Comment on above: Performed By: #### L 100.0500 ####[facility] [address] [place], [address] MCV (RBC) [Entitic vol] 108.5 fL High 80-94 [facility] Comment on above: Performed By: #### L 100.0500 ####[facility] [address] [place], [address] Platelet mean volume (Bld) [Entitic vol] 11.2 fL Normal 6.2-12.[address] [facility] Comment on above: Performed By: #### L 100.0500 ####[facility] [address] [place], [address] Platelets (Bld) [#/Vol] 141 10*3/uL Low 150-[address] [facility] Comment on above: Performed By: #### L 100.0500 ####[facility] [address] [place], [address] RBC (Bld) [#/Vol] 2.46 10*6/uL Low 4.6-6.2 [facility] Comment on above: Performed By: #### L 100.0500 ####[facility] [address] [place], [address] RDW SD 66.9 fl High 35.1-43.[address] [facility] Comment on above: Performed By: #### L 100.0500 ####[facility] [address] [place], [address] WBC (Bld) [#/Vol] 5.3 10*3/uL Normal 4.4-11.0 [facility] Comment on above: Performed By: #### L 100.0500 ####[facility] [address] [place], [address] Calprotectin, Stoolon [address] 91 ug/g Normal 0-[address] [facility] Comment on above: Result Comment: Conc entration Interpretation Follow-Up< 5 - 50 ug/g Normal None>50 -120 ug/g Borderline Re-evaluate in 4-6 weeks >120 ug/g Abnormal Repeat as clinically indicatedPerformed at: - [facility] [id number] Director: Karson Lux MD, Phone: [phone] Performed By: #### L 5909.1838, L3476.9996, L8323.9067 ####[facility] [address] [place], [address] Giardia Lamblia, Stool EIAon 07-05-2024 Giardia Stool Negative Normal Negative [facility] Comment on above: Result Comment: Perf ormed at: [facility] [employer] [address] [id number] [place], [place] [id number] Director: Agustin Arredondo PhD, Phone: [phone] Performed By: #### L 7400.3300, L3410.9994, L7000.0700 ####[facility] [address] [place], [place], [address] L3410.9994on 07-05-2024 [facility] Misc. 2 COMMENT Normal . [facility] Comment on above: Order Comment: STOOL [id number] for alpha-1 antitrypsin Result Comment: Perf ormed at: [email or web address] [facility] [id number] Director: Agustin Arredondo PhD, Phone: [phone] Performed By: #### L 7400.3300, L3410.9994, L7000.0700 ####[facility] [address] [place], [address] Activated partial thrombopla stin time (aPTT) in platelet poor plasma by coagulation aOrdered By: Antony Espitia on 07-04-2024 aPTT Coag (PPP) [Time] 28.2 s 24.1-36.2 [facility] Albumin Elph [Mass/Vol]Order ed By: Antony Espitia on 07-04-2024 Albumin [Mass/Vol] 2.1 g/dL Low 2.9-4.4 [facility] Bedside Glucoseon 07-04-2024 FINGERSTICK GLU 184 mg/dL High 74-[address] [facility] Comment on above: Result Comment: DAYANARA MORENO OF PATIENT CARE PER NURSING PROTOCOL Performed By: #### L 501.080 ####[facility] [address] [place], [place], [address] FINGERSTICK GLU 319 mg/dL High 74-[address] [facility] Comment on above: Result Comment: DAYANARA GEMENT OF PATIENT CARE PER NURSING PROTOCOL Performed By: #### L 501.080 ####[facility] [address] [place], [address] FINGERSTICK GLU 113 mg/dL High 74-[address] [facility] Comment on above: Result Comment: DAYANARA GEMENT OF PATIENT CARE PER NURSING PROTOCOL Performed By: #### L 501.080 ####[facility] [address] [place], [address] FINGERSTICK GLU 119 mg/dL High 74-[address] [facility] Comment on above: Result Comment: DAYANARA GEMENT OF PATIENT CARE PER NURSING PROTOCOL Performed By: #### L 501.080 ####[facility] [address] [place], [address] Consultation - Cardiologyon 07-04-2024 Consultation - Cardiology Normal [facility] Interpretation of serum or p lasma protein pattern by immunofixation (narrative resultOrdered By: Antony Espitia on 07-04-2024 Protein Fractions Immunofixation Jose Carlos [Interp] Not Observed g/dL Not Observed [facility] No Panel InformationOrdered By: Antony Espitia on 07-04-2024 Addendum Document Comment . [facility] <2 U/mL 0-[address] [facility] Ova and Parasites 8623on OP Normal [facility] Comment on above: Performed By: #### L 501.9985, L503.6005, L505.5000, M600.5000, L501.5200 ####[facility] [address] [place], [address] Partial Thromboplast Timeon 07-04-2024 aPTT Coag (Bld) [Time] 28.2 s Normal 24.1-36.2 [facility] Comment on above: Performed By: #### L 300.3900, L300.4310 ####[facility] [address] [place], [address] Prothrombin Time w/INRon INR Coag (PPP) [Relative time] 1.2 {INR} Normal [facility] Comment on above: Performed By: #### L 300.3900, L300.4310 ####[facility] [address] [place], [place], [id number] PT Coag (PPP) [Time] 15.2 s High 11.7-14.9 [facility] Comment on above: Performed By: #### L 300.3900, L300.4310 ####[facility] [address] [place], [place], [address] Prothrombin timeOrdered By: Antony Espitia on 07-04-2024 PT Coag (PPP) [Time] 15.2 s High 11.7-14.9 [facility] Qualitative QuantiFERON-TB g old in tube testOrdered By: Antony Espitia on 07-04-2024 M. tuberculosis tuberculin stim IFN-g Ql (Bld) 0.04 IU/mL . [facility] Serum DNA double strand anti body assay (units/volume)Ordered By: Antony Espitia on 07-04-2024 DNA double strand Ab Qn (S) [IU]/mL 0-[address] [facility] Serum Scl-70 antibody assay (units/volume)Ordered By: Antony Espitia on 07-04-2024 SCL-70 extractable nuclear Ab Qn (S) <0.2 AI 0.0-0.[address] [facility] Serum classic neutrophil cyt oplasmic antibody assay (units/volume)Ordered By: Antony Espitia on 07-04-2024 Neutrophil cytoplasmic Ab.classic Qn (S) <1:20 titer Neg:<1:[address] [facility] Serum globulin measurement ( mass/volume)Ordered By: Antony Espitia on 07-04-2024 Globulin (S) [Mass/Vol] 2.0 g/dL Low 2.2-3.9 [facility] Serum mitochondria antibody detectionOrdered By: Antony Espitia on 07-04-2024 Mitochondria Ab Ql (S) <20.0 Units 0.0-20.0 [facility] Serum or plasma IgA measurem ent (mass/volume)Ordered By: Antony Espitia on 07-04-2024 IgA [Mass/Vol] 318 mg/dL 61-[address] [facility] Serum or plasma IgG measurem ent (mass/volume)Ordered By: Antony Espitia on 07-04-2024 IgG [Mass/Vol] 839 mg/dL 603-[address] [facility] Serum or plasma actin IgG an tibody assay (units/volume)Ordered By: Antony Espitia on 07-04-2024 Actin IgG Qn 2 Units 0-[address] [facility] Serum or plasma alpha 1 glob ulin measurement by electrophoresis (mass/volume)Ordered By: Antony Espitia on 07-04-2024 Alpha 1 globulin Elph [Mass/Vol] 0.2 g/dL 0.0-0.[address] [facility] Alpha 1 globulin Elph [Mass/Vol] 0.4 g/dL 0.4-1.[address] [facility] Serum or plasma beta globuli n measurement by electrophoresis (mass/volume)Ordered By: Antony Espitia on 07-04-2024 Beta globulin Elph [Mass/Vol] 0.7 g/dL 0.7-1.[address] [facility] Serum or plasma gamma globul in measurement by electrophoresis (mass/volume)Ordered By: Antony Espitia on 07-04-2024 Gamma globulin Elph [Mass/Vol] 0.7 g/dL 0.4-1.[address] [facility] Serum or plasma immunoelectr ophoresis interpretation (nominal result)Ordered By: Antony Espitia on 07-04-2024 Interpretation IEP [Interp] Comment . [facility] Serum or plasma protein luciana urement (mass/volume)Ordered By: Antony Espitia on 07-04-2024 Protein [Mass/Vol] 4.1 g/dL Low 6.0-8.5 [facility] Serum perinuclear neutrophil cytoplasmic antibody titer by immunofluorescenceOrdered By: Antony Espitia on 07-04-2024 Neutrophil cytoplasmic Ab.perinuclear IF (S) [Titer] <1:20 titer Neg:<1:[address] [facility] Serum tissue transglutaminas e (tTG) IgA antibody assay (units/volume)Ordered By: Antony Espitia on 07-04-2024 tTG IgA Qn (S) <2 U/mL 0-[address] [facility] Basic Metabolic Profile (BMP )on 07-03-2024 BUN/CRE 13.1 RATIO Normal 10-[address] [facility] Comment on above: Performed By: #### L 100.0500, L500.2500, L501.5200, L501.2300 ####[facility] [address] [place], [address] Calcium [Mass/Vol] 7.4 mg/dL Low 7.6-11.0 [facility] Comment on above: Performed By: #### L 100.0500, L500.2500, L501.5200, L501.2300 ####[facility] [address] [place], [address] Chloride [Moles/Vol] 103 mmol/L Normal 98-108 [facility] Comment on above: Performed By: #### L 100.0500, L500.2500, L501.5200, L501.2300 ####[facility] [address] [place], [address] CO2 [Moles/Vol] 28.0 mmol/L Normal 21.0-32.[address] [facility] Comment on above: Performed By: #### L 100.0500, L500.2500, L501.5200, L501.2300 ####[facility] [address] [place], [address] Creatinine [Mass/Vol] 1.15 mg/dL Normal 0.70-1.20 [facility] Comment on above: Performed By: #### L 100.0500, L500.2500, L501.5200, L501.2300 ####[facility] [address] [place], [address] ECRCL 68.03 ml/min Normal 50-[address] [facility] Comment on above: Performed By: #### L 100.0500, L500.2500, L501.5200, L501.2300 ####[facility] [address] [place], [address] GAP 6 Normal 5-[address] [facility] Comment on above: Performed By: #### L 100.0500, L500.2500, L501.5200, L501.2300 ####[facility] [address] [place], [address] GFR/1.73 sq M.predicted among non-blacks MDRD (S/P/Bld) [Vol rate/Area] 72 mL/min/{1.73_m2} Normal >[address] [facility] Comment on above: Result Comment: mL/m in/1.73m2 CKD-EPI Creatinine Equation (2020) Performed By: #### L 100.0500, L500.2500, L501.5200, L501.2300 ####[facility] [address] [place], [address] Glucose [Mass/Vol] 54 mg/dL Low 70-99 [facility] Comment on above: Performed By: #### L 100.0500, L500.2500, L501.5200, L501.2300 ####[facility] [address] [place], [address] Potassium [Moles/Vol] 4.0 mmol/L Normal 3.3-5.1 [facility] Comment on above: Performed By: #### L 100.0500, L500.2500, L501.5200, L501.2300 ####[facility] [address] [place], [address] Sodium [Moles/Vol] 137 mmol/L Normal 133-145 [facility] Comment on above: Performed By: #### L 100.0500, L500.2500, L501.5200, L501.2300 ####[facility] [address] [place], [address] Urea nitrogen [Mass/Vol] 15 mg/dL Normal 4-[address] [facility] Comment on above: Performed By: #### L 100.0500, L500.2500, L501.5200, L501.2300 ####[facility] [address] [place], [address] Bedside Glucoseon 07-03-2024 FINGERSTICK GLU 174 mg/dL High 74-[address] [facility] Comment on above: Result Comment: DAYANARA GEMENT OF PATIENT CARE PER NURSING PROTOCOL Performed By: #### L 501.080 ####[facility] [address] [place], [address] FINGERSTICK GLU 170 mg/dL High 74-[address] [facility] Comment on above: Result Comment: DAYANARA GEMENT OF PATIENT CARE PER NURSING PROTOCOL Performed By: #### L 501.080 ####[facility] [address] [place], [address] FINGERSTICK GLU 120 mg/dL High 74-[address] [facility] Comment on above: Result Comment: DAYANARA GEMENT OF PATIENT CARE PER NURSING PROTOCOL Performed By: #### L 501.080 ####[facility] [address] [place], [address] FINGERSTICK GLU 128 mg/dL High 74-[address] [facility] Comment on above: Result Comment: DAYANARA GEMENT OF PATIENT CARE PER NURSING PROTOCOL Performed By: #### L 501.080 ####[facility] [address] [place], [address] CBC-Complete Blood Cnt No Di ffon 07-03-2024 Erythrocyte distribution width (RBC) [Ratio] 16.9 % High 11.6-14.[address] [facility] Comment on above: Performed By: #### L 100.0500, L500.2500, L501.5200, L501.2300 ####[facility] [address] [place], [address] Hematocrit (Bld) [Volume fraction] 24.2 % Low 40-[address] [facility] Comment on above: Performed By: #### L 100.0500, L500.2500, L501.5200, L501.2300 ####[facility] [address] [place], [address] Hemoglobin (Bld) [Mass/Vol] 8.0 g/dL Low 13.0-16.[address] [facility] Comment on above: Performed By: #### L 100.0500, L500.2500, L501.5200, L501.2300 ####[facility] [address] [place], [address] MCH (RBC) [Entitic mass] 35.9 pg High 27.0-32.[address] [facility] Comment on above: Performed By: #### L 100.0500, L500.2500, L501.5200, L501.2300 ####[facility] [address] [place], [address] MCHC (RBC) [Mass/Vol] 33.1 g/dL Normal 32-36 [facility] Comment on above: Performed By: #### L 100.0500, L500.2500, L501.5200, L501.2300 ####[facility] [address] [place], [address] MCV (RBC) [Entitic vol] 108.5 fL High 80-94 [facility] Comment on above: Performed By: #### L 100.0500, L500.2500, L501.5200, L501.2300 ####[facility] [address] [place], [address] Platelet mean volume (Bld) [Entitic vol] 10.8 fL Normal 6.2-12.[address] [facility] Comment on above: Performed By: #### L 100.0500, L500.2500, L501.5200, L501.2300 ####[facility] [address] [place], [address] Platelets (Bld) [#/Vol] 107 10*3/uL Low 150-[address] [facility] Comment on above: Performed By: #### L 100.0500, L500.2500, L501.5200, L501.2300 ####[facility] [address] [place], [address] RBC (Bld) [#/Vol] 2.23 10*6/uL Low 4.6-6.2 [facility] Comment on above: Performed By: #### L 100.0500, L500.2500, L501.5200, L501.2300 ####[facility] [address] [place], [address] RDW SD 66.8 fl High 35.1-43.[address] [facility] Comment on above: Performed By: #### L 100.0500, L500.2500, L501.5200, L501.2300 ####[facility] [address] [place], [address] WBC (Bld) [#/Vol] 4.3 10*3/uL Low 4.4-11.0 [facility] Comment on above: Performed By: #### L 100.0500, L500.2500, L501.5200, L501.2300 ####[facility] [address] [place], [address] CRPon 07-03-2024 C-REACTIVE PROT < 3.00 Normal 0.0-3.[address] [facility] Comment on above: Performed By: #### L 3300.1200, L3600.4030, L3100.3425, L501.6710, L3400.8000, L3410.2350, L101.9900 ####[facility] [address] [place], [place], [address] Calprotectin stoolOrdered By : Antony Espitia on 07-03-2024 Calprotectin stool 91 ug/g 0-120 [facility] Echocardiogram study reportO rdered By: Yaneli Carbone on 07-03-2024 Study report [facility] Work Phone: Erythrocyte Sed Rateon 07-03 SED RATE < 1 Normal 0-[address] [facility] Comment on above: Performed By: #### L 3300.1200, L3600.4030, L3100.3425, L501.6710, L3400.8000, L3410.2350, L101.9900 ####[facility] [address] [place], [place], [address] Erythrocyte sedimentation ra teOrdered By: Antony Espitia on 07-03-2024 ESR (Bld) [Velocity] mm/h 0-20 [facility] Giardia lamblia ag stool EIA Ordered By: Antony Espitia on 07-03-2024 G. lamblia Ag IA Ql (Stl) Negative Negative [facility] HIVon 07-03-2024 HIV Non-Reactive Normal Nonreactive [facility] Comment on above: Result Comment: Non- ReactiveReactiveRepeatedly reactive samples must be confirmed according [facility] recommended confirmatory algorithms. The subresults foreither HIVAG or AHIV can be used as an aid in the selectionof the confirmation algorithm for reactive samples.Send out specimens with Reactive results to [facility] forconfirmation.Order the HIV antibody detection and differentiation:lc#[id number] Performed By: #### L 3890.6006 ####[facility] [address] [place], [place], [id number] LDHon 07-03-2024 LDH 415 U/L High 87-[address] [facility] Comment on above: Performed By: #### L 504.2610 ####[facility] [address] [place], [place], [id number] MR/CON.PCM.GIon 07-03-2024 MR/CON.PCM.GI Normal [facility] Magnesiumon 07-03-2024 Magnesium [Mass/Vol] 1.8 mg/dL Normal 1.5-2.2 [facility] Comment on above: Performed By: #### L 100.0500, L500.2500, L501.5200, L501.2300 ####[facility] [address] [place], [address] Magnesium measurement (mass/ volume)Ordered By: Melonie De La Rosa on 07-03-2024 Magnesium (Unsp spec) [Mass/Vol] 1.8 mg/dL 1.5-2.[address] [facility] No Panel InformationOrdered By: Antony Espitia on 07-03-2024 Non-Reactive Nonreactive [facility] Phosphoruson 07-03-2024 Phosphate [Mass/Vol] 3.2 mg/dL Normal 2.7-4.5 [facility] Comment on above: Performed By: #### L 100.0500, L500.2500, L501.5200, L501.2300 ####[facility] [address] [place], [address] Serum or plasma C reactive p rotein measurement (mass/volume)Ordered By: Antony Espitia on 07-03-2024 CRP [Mass/Vol] mg/L 0.0-3.[address] [facility] Bedside Glucoseon 07-02-2024 FINGERSTICK GLU 218 mg/dL High 74-[address] [facility] Comment on above: Result Comment: DAYANARA GEMENT OF PATIENT CARE PER NURSING PROTOCOL Performed By: #### L 501.080 ####[facility] [address] [place], [address] FINGERSTICK GLU 174 mg/dL High 74-[address] [facility] Comment on above: Result Comment: DAYANARA GEMENT OF PATIENT CARE PER NURSING PROTOCOL Performed By: #### L 501.080 ####[facility] [address] [place], [address] FINGERSTICK GLU 107 mg/dL High 74-[address] [facility] Comment on above: Result Comment: DAYANARA GEMENT OF PATIENT CARE PER NURSING PROTOCOL Performed By: #### L 501.080 ####[facility] [address] [place], [address] FINGERSTICK GLU 66 mg/dL Low 74-[address] [facility] Comment on above: Result Comment: DAYANARA GEMENT OF PATIENT CARE PER NURSING PROTOCOL Performed By: #### L 501.080 ####[facility] [address] [place], [address] FINGERSTICK GLU 116 mg/dL High 74-[address] [facility] Comment on above: Result Comment: DAYANARA GEMENT OF PATIENT CARE PER NURSING PROTOCOL Performed By: #### L 501.080 ####[facility] [address] [place], [address] Bilirubin, totalOrdered By: Melonie De La Rosa on 07-02-2024 Bilirubin [Mass/Vol] 0.29 mg/dL 0.00-1.30 [facility] Blood manual differential co mment interpretation (narrative result)Ordered By: Melonie De La Rosa on 07-02-2024 Manual differential comment Jose Carlos (Bld) [Interp] See comment [facility] CBC-Complete Blood Cnt No Di ffon 07-02-2024 Erythrocyte distribution width (RBC) [Ratio] 16.7 % High 11.6-14.[address] [facility] Comment on above: Performed By: #### L 100.4500, L100.0500 ####[facility] [address] [place], [address] Hematocrit (Bld) [Volume fraction] 22.5 % Low 40-[address] [facility] Comment on above: Performed By: #### L 100.4500, L100.0500 ####[facility] [address] [place], [address] Hemoglobin (Bld) [Mass/Vol] 7.5 g/dL Low 13.0-16.[address] [facility] Comment on above: Performed By: #### L 100.4500, L100.0500 ####[facility] [address] [place], [address] MCH (RBC) [Entitic mass] 36.4 pg High 27.0-32.[address] [facility] Comment on above: Performed By: #### L 100.4500, L100.0500 ####[facility] [address] [place], [address] MCHC (RBC) [Mass/Vol] 33.3 g/dL Normal 32-36 [facility] Comment on above: Performed By: #### L 100.4500, L100.0500 ####[facility] [address] [place], [address] MCV (RBC) [Entitic vol] 109.2 fL High 80-94 [facility] Comment on above: Performed By: #### L 100.4500, L100.0500 ####[facility] [address] [place], [address] Platelet mean volume (Bld) [Entitic vol] 12.5 fL High 6.2-12.[address] [facility] Comment on above: Performed By: #### L 100.4500, L100.0500 ####[facility] [address] [place], [address] Platelets (Bld) [#/Vol] 132 10*3/uL Low 150-[address] [facility] Comment on above: Performed By: #### L 100.4500, L100.0500 ####[facility] [address] [place], [address] RBC (Bld) [#/Vol] 2.06 10*6/uL Low 4.6-6.2 [facility] Comment on above: Performed By: #### L 100.4500, L100.0500 ####[facility] [address] [place], [address] RDW SD 67.2 fl High 35.1-43.[address] [facility] Comment on above: Performed By: #### L 100.4500, L100.0500 ####[facility] [address] [place], [address] WBC (Bld) [#/Vol] 4.0 10*3/uL Low 4.4-11.0 [facility] Comment on above: Performed By: #### L 100.4500, L100.0500 ####[facility] [address] [place], [address] Comprehensive Metabolic Prof ilon 07-02-2024 Albumin [Mass/Vol] 2.3 g/dL Low 3.4-4.8 [facility] Comment on above: Order Comment: REDRA W. PREVIOUS SPECIMEN REJECTED DUE TOHEMOLYSIS. 07/02/2417 Jamari Aguayo. Performed By: #### L 501.2300, L500.4050, L501.5200 ####[facility] [address] [place], [address] Albumin/Globulin [Mass ratio] 1.2 {ratio} Normal 0.9-2.[address] [facility] Comment on above: Order Comment: REDRA W. PREVIOUS SPECIMEN REJECTED DUE TOHEMOLYSIS. 07/02/2417 Jamari Aguayo. Performed By: #### L 501.2300, L500.4050, L501.5200 ####[facility] [address] [place], [address] ALK PHOS 101 U/L Normal 40-[address] [facility] Comment on above: Order Comment: REDRA W. PREVIOUS SPECIMEN REJECTED DUE TOHEMOLYSIS. 07/02/2417 Jamari Aguayo. Performed By: #### L 501.2300, L500.4050, L501.5200 ####[facility] [address] [place], [address] ALT [Catalytic activity/Vol] 26 U/L Normal <=[address] [facility] Comment on above: Order Comment: REDRA W. PREVIOUS SPECIMEN REJECTED DUE TOHEMOLYSIS. 07/02/24516 Jamari Aguayo. Performed By: #### L 501.2300, L500.4050, L501.5200 ####[facility] [address] [place], [address] AST [Catalytic activity/Vol] 54 U/L High <=[address] [facility] Comment on above: Order Comment: REDRA W. PREVIOUS SPECIMEN REJECTED DUE TOHEMOLYSIS. 07/02/24516 Jamari Aguayo. Performed By: #### L 501.2300, L500.4050, L501.5200 ####[facility] [address] [place], [address] Bilirubin [Mass/Vol] 0.29 mg/dL Normal 0.00-1.30 [facility] Comment on above: Order Comment: REDRA W. PREVIOUS SPECIMEN REJECTED DUE TOHEMOLYSIS. 07/02/24516 Jamari Aguayo. Performed By: #### L 501.2300, L500.4050, L501.5200 ####[facility] [address] [place], [address] BUN/CRE 8.9 RATIO Low 10-[address] [facility] Comment on above: Order Comment: REDRA W. PREVIOUS SPECIMEN REJECTED DUE TOHEMOLYSIS. 07/02/24516 Jamari Aguayo. Performed By: #### L 501.2300, L500.4050, L501.5200 ####[facility] [address] [place], [address] Calcium [Mass/Vol] 7.7 mg/dL Normal 7.6-11.0 [facility] Comment on above: Order Comment: REDRA W. PREVIOUS SPECIMEN REJECTED DUE TOHEMOLYSIS. 07/02/24516 Jamari Aguayo. Performed By: #### L 501.2300, L500.4050, L501.5200 ####[facility] [address] [place], [address] Chloride [Moles/Vol] 108 mmol/L Normal 98-108 [facility] Comment on above: Order Comment: REDRA W. PREVIOUS SPECIMEN REJECTED DUE TOHEMOLYSIS. 07/02/24516 Jamari Aguayo. Performed By: #### L 501.2300, L500.4050, L501.5200 ####[facility] [address] [place], [address] CO2 [Moles/Vol] 26.7 mmol/L Normal 21.0-32.[address] [facility] Comment on above: Order Comment: REDRA W. PREVIOUS SPECIMEN REJECTED DUE TOHEMOLYSIS. 07/02/24516 Jamari Aguayo. Performed By: #### L 501.2300, L500.4050, L501.5200 ####[facility] [address] [place], [address] Creatinine [Mass/Vol] 1.22 mg/dL High 0.70-1.20 [facility] Comment on above: Order Comment: REDRA W. PREVIOUS SPECIMEN REJECTED DUE TOHEMOLYSIS. 07/02/24516 Jamari Aguayo. Performed By: #### L 501.2300, L500.4050, L501.5200 ####[facility] [address] [place], [address] ECRCL 65.56 ml/min Normal 50-[address] [facility] Comment on above: Order Comment: REDRA W. PREVIOUS SPECIMEN REJECTED DUE TOHEMOLYSIS. 07/02/24516 Jamari Aguayo. Performed By: #### L 501.2300, L500.4050, L501.5200 ####[facility] [address] [place], [address] GAP 7 Normal 5-[address] [facility] Comment on above: Order Comment: REDRA W. PREVIOUS SPECIMEN REJECTED DUE TOHEMOLYSIS. 07/02/24516 Jamari Aguayo. Performed By: #### L 501.2300, L500.4050, L501.5200 ####[facility] [address] [place], [address] GFR/1.73 sq M.predicted among non-blacks MDRD (S/P/Bld) [Vol rate/Area] 67 mL/min/{1.73_m2} Normal >[address] [facility] Comment on above: Order Comment: REDRA W. PREVIOUS SPECIMEN REJECTED DUE TOHEMOLYSIS. 07/02/24516 Jamari Aguayo. Result Comment: mL/m in/1.73m2 CKD-EPI Creatinine Equation (2020) Performed By: #### L 501.2300, L500.4050, L501.5200 ####[facility] [address] [place], [address] Globulin (S) [Mass/Vol] 2.0 g/dL Low 2.2-4.[address] [facility] Comment on above: Order Comment: REDRA W. PREVIOUS SPECIMEN REJECTED DUE TOHEMOLYSIS. 07/02/24516 Jamari Aguayo. Performed By: #### L 501.2300, L500.4050, L501.5200 ####[facility] [address] [place], [address] Glucose [Mass/Vol] 57 mg/dL Low 70-99 [facility] Comment on above: Order Comment: REDRA W. PREVIOUS SPECIMEN REJECTED DUE TOHEMOLYSIS. 07/02/2417 Jamari Aguayo. Performed By: #### L 501.2300, L500.4050, L501.5200 ####[facility] [address] [place], [address] Potassium [Moles/Vol] 4.1 mmol/L Normal 3.3-5.1 [facility] Comment on above: Order Comment: REDRA W. PREVIOUS SPECIMEN REJECTED DUE TOHEMOLYSIS. 07/02/24516 Jamari Aguayo. Performed By: #### L 501.2300, L500.4050, L501.5200 ####[facility] [address] [place], [address] Sodium [Moles/Vol] 141 mmol/L Normal 133-145 [facility] Comment on above: Order Comment: REDRA W. PREVIOUS SPECIMEN REJECTED DUE TOHEMOLYSIS. 07/02/24516 Jamari Aguayo. Performed By: #### L 501.2300, L500.4050, L501.5200 ####[facility] [address] [place], [address] T PROT 4.3 g/dL Low 5.9-8.[address] [facility] Comment on above: Order Comment: REDRA W. PREVIOUS SPECIMEN REJECTED DUE TOHEMOLYSIS. 07/02/24516 Jamari Aguayo. Performed By: #### L 501.2300, L500.4050, L501.5200 ####[facility] [address] [place], [address] Urea nitrogen [Mass/Vol] 11 mg/dL Normal 4-[address] [facility] Comment on above: Order Comment: REDRA W. PREVIOUS SPECIMEN REJECTED DUE TOHEMOLYSIS. 07/02/24516 Jamari Aguayo. Performed By: #### L 501.2300, L500.4050, L501.5200 ####[facility] [address] [place], [address] ALB Normal 3.4-4.[address] [facility] Comment on above: Result Comment: This specimen has been REJECTED due to Laboratory criteria:Hemolyzed.Candida Duke has been notified of need of recollection.07/02/24515 Jamari Aguayo Performed By: #### L 501.2300, L500.4050, L501.5200 ####[facility] [address] [place], [address] ALK PHOS Normal 40-[address] [facility] Comment on above: Result Comment: This specimen has been REJECTED due to Laboratory criteria:Hemolyzed.Candidacullen Duke has been notified of need of recollection.07/02/24515 Jamari Callahan White Performed By: #### L 501.2300, L500.4050, L501.5200 ####[facility] [address] [place], [address] ALT Normal <=[address] [facility] Comment on above: Result Comment: This specimen has been REJECTED due to Laboratory criteria:Hemolyzed.Candidacullen Duke has been notified of need of recollection.07/02/24515 Jamari Callahan White Performed By: #### L 501.2300, L500.4050, L501.5200 ####[facility] [address] [place], [address] AST Normal <=[address] [facility] Comment on above: Result Comment: This specimen has been REJECTED due to Laboratory criteria:Hemolyzed.Candida Duke has been notified of need of recollection.07/02/24515 Jamari Callahan White Performed By: #### L 501.2300, L500.4050, L501.5200 ####[facility] [address] [place], [address] BUN Normal 4-[address] [facility] Comment on above: Result Comment: This specimen has been REJECTED due to Laboratory criteria:Hemolyzed.Candida Duke has been notified of need of recollection.07/02/24515 Jamari L White Performed By: #### L 501.2300, L500.4050, L501.5200 ####[facility] [address] [place], [address] BUN/CRE Normal 10-[address] [facility] Comment on above: Result Comment: This specimen has been REJECTED due to Laboratory criteria:Hemolyzed.Candida Duke has been notified of need of recollection.07/02/24515 Jamari L White Performed By: #### L 501.2300, L500.4050, L501.5200 ####[facility] [address] [place], [address] Calcium Normal 7.6-11.[address] [facility] Comment on above: Result Comment: This specimen has been REJECTED due to Laboratory criteria:Hemolyzed.Candida Duke has been notified of need of recollection.07/02/24515 Jamari L White Performed By: #### L 501.2300, L500.4050, L501.5200 ####[facility] [address] [place], [address] CL Normal 98-[address] [facility] Comment on above: Result Comment: This specimen has been REJECTED due to Laboratory criteria:Hemolyzed.Candida Duke has been notified of need of recollection.07/02/24515 Jamari L White Performed By: #### L 501.2300, L500.4050, L501.5200 ####[facility] [address] [place], [address] CO2 Normal 21.0-32.[address] [facility] Comment on above: Result Comment: This specimen has been REJECTED due to Laboratory criteria:Hemolyzed.Candida Duke has been notified of need of recollection.07/02/24515 Jamari L White Performed By: #### L 501.2300, L500.4050, L501.5200 ####[facility] [address] [place], [address] CREAT,SERUM Normal 0.70-1.[address] [facility] Comment on above: Result Comment: This specimen has been REJECTED due to Laboratory criteria:Hemolyzed.Candida Duke has been notified of need of recollection.07/02/24515 Jamari L White Performed By: #### L 501.2300, L500.4050, L501.5200 ####[facility] [address] [place], [address] eGFR Normal >[address] [facility] Comment on above: Result Comment: This specimen has been REJECTED due to Laboratory criteria:Hemolyzed.Candida Duke has been notified of need of recollection.07/02/24515 Jamari L White Performed By: #### L 501.2300, L500.4050, L501.5200 ####[facility] [address] [place], [address] GAP Normal 5-[address] [facility] Comment on above: Result Comment: This specimen has been REJECTED due to Laboratory criteria:Hemolyzed.Candidacullen Duke has been notified of need of recollection.07/02/24515 Jamari L White Performed By: #### L 501.2300, L500.4050, L501.5200 ####[facility] [address] [place], [address] GLU Normal 70-[address] [facility] Comment on above: Result Comment: This specimen has been REJECTED due to Laboratory criteria:Hemolyzed.Candida Duke has been notified of need of recollection.07/02/24515 Jamari L White Performed By: #### L 501.2300, L500.4050, L501.5200 ####[facility] [address] [place], [address] Potassium Normal 3.3-5.[address] [facility] Comment on above: Result Comment: This specimen has been REJECTED due to Laboratory criteria:Hemolyzed.Candida Duke has been notified of need of recollection.07/02/24515 Jamari L White Performed By: #### L 501.2300, L500.4050, L501.5200 ####[facility] [address] [place], [address] T BILI Normal 0.00-1.[address] [facility] Comment on above: Result Comment: This specimen has been REJECTED due to Laboratory criteria:Hemolyzed.Candida Duke has been notified of need of recollection.07/02/24515 Jamari L White Performed By: #### L 501.2300, L500.4050, L501.5200 ####[facility] [address] [place], [address] T PROT Normal 5.9-8.[address] [facility] Comment on above: Result Comment: This specimen has been REJECTED due to Laboratory criteria:Hemolyzed.Candida Duke has been notified of need of recollection.07/02/24 0516 Jamari Callahan White Performed By: #### L 501.2300, L500.4050, L501.5200 ####[facility] [address] [place], [address] Comprehensive Metabolic Profil Normal 133-[address] [facility] Comment on above: Result Comment: This specimen has been REJECTED due to Laboratory criteria:Hemolyzed.Candida Duke has been notified of need of recollection.07/02/2416 Jamari Callahan White Performed By: #### L 501.2300, L500.4050, L501.5200 ####[facility] [address] [place], [address] Culture, Anaerobic Any Sourc chase 07-02-2024 CUAN No growth in [address] [facility] Comment on above: Performed By: #### M 100.2000, M100.2900, M100.4001 ####[facility] [address] [place], [address] Differential Commenton 07-02 SMEAR COMMENT Normal [facility] Comment on above: Result Comment: 2+ A NISOCYTOSIS1+ OVALOCYTES1+ SHISTOCYTESRARE ACANTHOCYTESSLIGHT DECREASE PLATELETS Performed By: #### L 100.4500, L100.0500 ####[facility] [address] [place], [address] Magnesiumon 07-02-2024 Magnesium [Mass/Vol] 1.8 mg/dL Normal 1.5-2.2 [facility] Comment on above: Order Comment: REDRA W. PREVIOUS SPECIMEN REJECTED DUE TOHEMOLYSIS. 07/02/24516 Jamari Aguayo. Performed By: #### L 501.2300, L500.4050, L501.5200 ####[facility] [address] [place], [address] Magnesium [Mass/Vol] 1.8 mg/dL Normal 1.5-2.2 [facility] Comment on above: Order Comment: This specimen has been REJECTED due to Laboratory criteria:Hemolyzed.Candida Duke has been notified of need of recollection.07/02/24515 Jamari Aguayo Result Comment: This specimen has been REJECTED due to Laboratory criteria:Hemolyzed.Candida Duke has been notified of need of recollection.07/02/24515 Jamari Aguayo Performed By: #### L 501.2300, L500.4050, L501.5200 ####[facility] [address] [place], [address] No Panel InformationOrdered By: Melonie De La Rosa on 07-02-2024 54 U/L High <[address] [facility] Phosphoruson 07-02-2024 Phosphate [Mass/Vol] 2.4 mg/dL Low 2.7-4.5 [facility] Comment on above: Order Comment: RED W. PREVIOUS SPECIMEN REJECTED DUE TOHEMOLYSIS. 07/02/24516 Jamari Aguayo. Performed By: #### L 501.2300, L500.4050, L501.5200 ####[facility] [address] [place], [address] Phosphate [Mass/Vol] 2.7 mg/dL Normal 2.7-4.5 [facility] Comment on above: Order Comment: This specimen has been REJECTED due to Laboratory criteria:Hemolyzed.Candida Duke has been notified of need of recollection.07/02/24515 Jamari Aguayo Result Comment: This specimen has been REJECTED due to Laboratory criteria:Hemolyzed.Candida Duke has been notified of need of recollection.07/02/24515 Jamari Aguayo Performed By: #### L 501.2300, L500.4050, L501.5200 ####[facility] [address] [place], [address] Serum globulin measurementOr dered By: Melonie De La Rosa on 07-02-2024 Globulin (S) [Mass/Vol] 2.0 g/dL Low 2.2-4.2 [facility] Serum or plasma alanine padilla otransferase (ALT) measurementOrdered By: Melonie De La Rosa on 07-02-2024 ALT [Catalytic activity/Vol] 26 U/L <[address] [facility] Serum or plasma albumin luciana urement (mass/volume)Ordered By: Melonie De La Rosa on 07-02-2024 Albumin [Mass/Vol] 2.3 g/dL Low 3.4-4.8 [facility] Serum or plasma albumin/glob ulin mass ratioOrdered By: Melonie De La Rosa on 07-02-2024 Albumin/Globulin [Mass ratio] 1.2 {ratio} 0.9-2.[address] [facility] Serum or plasma alkaline nolan sphatase measurementOrdered By: Melonie De La Rosa on 07-02-2024 ALP [Catalytic activity/Vol] 101 U/L 40-[address] [facility] Total proteinOrdered By: Shira De La Rosa on 07-02-2024 Protein [Mass/Vol] 4.3 g/dL Low 5.9-8.4 [facility] Absolute lymphocyte countOrd ered By: Conrado Fraser on 07-01-2024 Lymphocytes Auto (Unsp spec) [#/Vol] 0.93 10*3/uL 0.83-4.[address] [facility] Automated lymphocyte count a s percentage of total leukocytesOrdered By: Conrado Fraser on 07-01-2024 Lymphocytes/100 WBC Auto (Unsp spec) 19.3 % 19-[address] [facility] Basophil percentageOrdered B y: Conrado Fraser on 07-01-2024 Basophils/100 WBC (Bld) 0.8 % 0-1 [facility] Bedside Glucoseon 07-01-2024 FINGERSTICK GLU 158 mg/dL High 74-[address] [facility] Comment on above: Result Comment: DAYANARA MORENO OF PATIENT CARE PER NURSING PROTOCOL Performed By: #### L 501.080 ####[facility] [address] [place], [address] FINGERSTICK GLU 237 mg/dL High 74-[address] [facility] Comment on above: Result Comment: DAYANARA GEMENT OF PATIENT CARE PER NURSING PROTOCOL Performed By: #### L 501.080 ####[facility] [address] [place], [address] FINGERSTICK GLU 114 mg/dL High 74-[address] [facility] Comment on above: Result Comment: DAYANARA GEMENT OF PATIENT CARE PER NURSING PROTOCOL Performed By: #### L 501.080 ####[facility] [address] [place], [address] FINGERSTICK GLU 238 mg/dL High 74-[address] [facility] Comment on above: Result Comment: DAYANARA GEMENT OF PATIENT CARE PER NURSING PROTOCOL Performed By: #### L 501.080 ####[facility] [address] [place], [address] CBC W/Diff, Automatedon - Anisocytosis Ql (Bld) 1+ Normal [facility] Comment on above: Performed By: #### L 100.0100, L501.2300, L500.4050 ####[facility] [address] [place], [address] MACROCYTOSIS 1+ Normal [facility] Comment on above: Performed By: #### L 100.0100, L501.2300, L500.4050 ####[facility] [address] [place], [address] SMEAR COMMENT SCANNED Normal [facility] Comment on above: Performed By: #### L 100.0100, L501.2300, L500.4050 ####[facility] [address] [place], [address] Comprehensive Metabolic Prof ilon 07-01-2024 GAP 7 Normal 5-[address] [facility] Comment on above: Performed By: #### L 100.0100, L501.2300, L500.4050 ####[facility] [address] [place], [address] Albumin [Mass/Vol] 2.4 g/dL Low 3.4-4.8 [facility] Comment on above: Performed By: #### L 100.0100, L501.2300, L500.4050 ####[facility] [address] [place], [address] Albumin/Globulin [Mass ratio] 1.3 {ratio} Normal 0.9-2.[address] [facility] Comment on above: Performed By: #### L 100.0100, L501.2300, L500.4050 ####[facility] [address] [place], [address] ALK PHOS 87 U/L Normal 40-[address] [facility] Comment on above: Performed By: #### L 100.0100, L501.2300, L500.4050 ####[facility] [address] [place], [address] ALT [Catalytic activity/Vol] 25 U/L Normal <=[address] [facility] Comment on above: Performed By: #### L 100.0100, L501.2300, L500.4050 ####[facility] [address] [place], [address] AST [Catalytic activity/Vol] 43 U/L High <=[address] [facility] Comment on above: Performed By: #### L 100.0100, L501.2300, L500.4050 ####[facility] [address] [place], [address] Bilirubin [Mass/Vol] 0.36 mg/dL Normal 0.00-1.30 [facility] Comment on above: Performed By: #### L 100.0100, L501.2300, L500.4050 ####[facility] [address] [place], [address] BUN/CRE 8.0 RATIO Low 10-[address] [facility] Comment on above: Performed By: #### L 100.0100, L501.2300, L500.4050 ####[facility] [address] [place], [address] Calcium [Mass/Vol] 7.7 mg/dL Normal 7.6-11.0 [facility] Comment on above: Performed By: #### L 100.0100, L501.2300, L500.4050 ####[facility] [address] [place], [address] Chloride [Moles/Vol] 103 mmol/L Normal 98-108 [facility] Comment on above: Performed By: #### L 100.0100, L501.2300, L500.4050 ####[facility] [address] [place], [address] CO2 [Moles/Vol] 25.9 mmol/L Normal 21.0-32.[address] [facility] Comment on above: Performed By: #### L 100.0100, L501.2300, L500.4050 ####[facility] [address] [place], [address] Creatinine [Mass/Vol] 1.28 mg/dL High 0.70-1.20 [facility] Comment on above: Performed By: #### L 100.0100, L501.2300, L500.4050 ####[facility] [address] [place], [address] ECRCL 64.55 ml/min Normal 50-[address] [facility] Comment on above: Performed By: #### L 100.0100, L501.2300, L500.4050 ####[facility] [address] [place], [address] GFR/1.73 sq M.predicted among non-blacks MDRD (S/P/Bld) [Vol rate/Area] 64 mL/min/{1.73_m2} Normal >[address] [facility] Comment on above: Result Comment: mL/m in/1.73m2 CKD-EPI Creatinine Equation (2020) Performed By: #### L 100.0100, L501.2300, L500.4050 ####[facility] [address] [place], [address] Globulin (S) [Mass/Vol] 1.9 g/dL Low 2.2-4.2 [facility] Comment on above: Performed By: #### L 100.0100, L501.2300, L500.4050 ####[facility] [address] [place], [address] Glucose [Mass/Vol] 256 mg/dL High 70-99 [facility] Comment on above: Performed By: #### L 100.0100, L501.2300, L500.4050 ####[facility] [address] [place], [address] Potassium [Moles/Vol] 4.2 mmol/L Normal 3.3-5.1 [facility] Comment on above: Performed By: #### L 100.0100, L501.2300, L500.4050 ####[facility] [address] [place], [address] Sodium [Moles/Vol] 136 mmol/L Normal 133-145 [facility] Comment on above: Performed By: #### L 100.0100, L501.2300, L500.4050 ####[facility] [address] [place], [address] T PROT 4.4 g/dL Low 5.9-8.[address] [facility] Comment on above: Performed By: #### L 100.0100, L501.2300, L500.4050 ####[facility] [address] [place], [address] Urea nitrogen [Mass/Vol] 10 mg/dL Normal 4-[address] [facility] Comment on above: Performed By: #### L 100.0100, L501.2300, L500.4050 ####[facility] [address] [place], [address] Echo Completeon 07-01-2024 Echo Complete Normal [facility] Eosinophil percentageOrdered By: Conrado Fraser on 07-01-2024 Eosinophils/100 WBC (Bld) 1.0 % 0-[address] [facility] Immature granulocytes/100 WB C Auto (Bld)Ordered By: Conrado Fraser on 07-01-2024 Immature granulocytes/100 WBC (Bld) 0.200 % 0.0-0.[address] [facility] L499.0043on 07-01-2024 Trop T High Sen 97 ng/L Invalid Interpretation Code <=[address] [facility] Comment on above: Result Comment: Crit ical Result(s) Called at 0152: by:??NBURNS TO EAFFOLTERResults read back by same. Performed By: #### L 499.0043 ####[facility] [address] [place], [address] Macrocytes detectionOrdered By: Conrado Fraser on 07-01-2024 Macrocytes Ql (Bld) 1+ [facility] Monocyte percentageOrdered B y: Conrado Fraser on 07-01-2024 Monocytes/100 WBC (Bld) 9.8 % 0-10 [facility] Neutrophil percentageOrdered By: Conrado Fraser on 07-01-2024 Neutrophils/100 WBC (Bld) 68.9 % 47-[address] [facility] No Panel InformationOrdered By: Conrado Fraser on 07-01-2024 1+ [facility] Operative Reporton Operative Report Normal [facility] Phosphoruson 07-01-2024 Phosphate [Mass/Vol] 3.1 mg/dL Normal 2.7-4.5 [facility] Comment on above: Performed By: #### L 100.0100, L501.2300, L500.4050 ####[facility] [address] [place], [place], [address] Troponin T.cardiac [Mass/vol ume] in Serum or Plasma by High sensitivity methodOrdered By: Conrado Fraser on 07-01-2024 Troponin T.cardiac High sensitivity method [Mass/Vol] 97 ng/L High <[address] [facility] Abdomen/Pelvis W IV Cont ONL Yon 06-30-2024 Abdomen/Pelvis W IV Cont ONLY Normal [facility] Alcohol, Blood (Medical)-Ser umon 06-30-2024 SERUM ETOH < 10.1 Normal <=10.[address] [facility] Comment on above: Result Comment: This test is for medical purposes only. The legaldefinition of intoxication varies according to local law. Performed By: #### L 500.3400, L100.0100, L503.6005, L501.2450, L500.2500, L300.3900, L300.4310, L501.9100 ####[facility] [address] [place], [address] Basic Metabolic Profile (BMP )on 06-30-2024 BUN/CRE 7.7 RATIO Low 10-[address] [facility] Comment on above: Performed By: #### L 500.3400, L100.0100, L503.6005, L501.2450, L500.2500, L300.3900, L300.4310, L501.9100 ####[facility] [address] [place], [address] Calcium [Mass/Vol] 8.2 mg/dL Normal 7.6-11.0 [facility] Comment on above: Performed By: #### L 500.3400, L100.0100, L503.6005, L501.2450, L500.2500, L300.3900, L300.4310, L501.9100 ####[facility] [address] [place], [address] Chloride [Moles/Vol] 101 mmol/L Normal 98-108 [facility] Comment on above: Performed By: #### L 500.3400, L100.0100, L503.6005, L501.2450, L500.2500, L300.3900, L300.4310, L501.9100 ####[facility] [address] [place], [address] CO2 [Moles/Vol] 24.7 mmol/L Normal 21.0-32.[address] [facility] Comment on above: Performed By: #### L 500.3400, L100.0100, L503.6005, L501.2450, L500.2500, L300.3900, L300.4310, L501.9100 ####[facility] [address] [place], [address] Creatinine [Mass/Vol] 1.41 mg/dL High 0.70-1.20 [facility] Comment on above: Performed By: #### L 500.3400, L100.0100, L503.6005, L501.2450, L500.2500, L300.3900, L300.4310, L501.9100 ####[facility] [address] [place], [address] ECRCL 58.60 ml/min Normal 50-[address] [facility] Comment on above: Performed By: #### L 500.3400, L100.0100, L503.6005, L501.2450, L500.2500, L300.3900, L300.4310, L501.9100 ####[facility] [address] [place], [address] GAP 9 Normal 5-[address] [facility] Comment on above: Performed By: #### L 500.3400, L100.0100, L503.6005, L501.2450, L500.2500, L300.3900, L300.4310, L501.9100 ####[facility] [address] [place], [address] GFR/1.73 sq M.predicted among non-blacks MDRD (S/P/Bld) [Vol rate/Area] 57 mL/min/{1.73_m2} Low >[address] [facility] Comment on above: Result Comment: mL/m in/1.73m2 CKD-EPI Creatinine Equation (2020) Performed By: #### L 500.3400, L100.0100, L503.6005, L501.2450, L500.2500, L300.3900, L300.4310, L501.9100 ####[facility] [address] [place], [address] Glucose [Mass/Vol] 159 mg/dL High 70-99 [facility] Comment on above: Performed By: #### L 500.3400, L100.0100, L503.6005, L501.2450, L500.2500, L300.3900, L300.4310, L501.9100 ####[facility] [address] [place], [address] Potassium [Moles/Vol] 4.2 mmol/L Normal 3.3-5.1 [facility] Comment on above: Performed By: #### L 500.3400, L100.0100, L503.6005, L501.2450, L500.2500, L300.3900, L300.4310, L501.9100 ####[facility] [address] [place], [address] Sodium [Moles/Vol] 135 mmol/L Normal 133-145 [facility] Comment on above: Performed By: #### L 500.3400, L100.0100, L503.6005, L501.2450, L500.2500, L300.3900, L300.4310, L501.9100 ####[facility] [address] [place], [place], [address] Urea nitrogen [Mass/Vol] 11 mg/dL Normal 4-[address] [facility] Comment on above: Performed By: #### L 500.3400, L100.0100, L503.6005, L501.2450, L500.2500, L300.3900, L300.4310, L501.9100 ####[facility] [address] [place], [place], [address] Bedside Glucoseon 06-30-2024 FINGERSTICK GLU 123 mg/dL High 74-[address] [facility] Comment on above: Result Comment: DAYANARA MORENO OF PATIENT CARE PER NURSING PROTOCOL Performed By: #### L 501.080 ####[facility] [address] [place], [place], [address] Bilirubin Test strip Ql (U)O rdered By: Narendra Gonzalez on 06-30-2024 Bilirubin Ql (U) 1 mg/dL High Negative [facility] Bilirubin directOrdered By: Narendra Gonzalez on 06-30-2024 Bilirubin.direct [Mass/Vol] 0.27 mg/dL 0.00-0.[address] [facility] Blood polychromasia detectio n by light microscopyOrdered By: Narendra Gonzalez on 06-30-2024 Polychromasia LM Ql (Bld) 2+ [facility] CBC W/Diff, Automatedon 06-09 Anisocytosis Ql (Bld) 2+ Normal [facility] Comment on above: Performed By: #### L 500.3400, L100.0100, L503.6005, L501.2450, L500.2500, L300.3900, L300.4310, L501.9100 ####[facility] [address] [place], [address] POLYCHROMASIA 2+ Normal [facility] Comment on above: Performed By: #### L 500.3400, L100.0100, L503.6005, L501.2450, L500.2500, L300.3900, L300.4310, L501.9100 ####[facility] [address] [place], [address] CO2 (BldV) [Moles/Vol]Ordere d By: Conrado Fraser on 06-30-2024 CO2 [Moles/Vol] 29 mmol/L [facility] Chest 1 View (Portable)on Chest 1 View (Portable) Normal [facility] Emergency Department Summary on 06-30-2024 Emergency Department Summary Normal [facility] H AND P Exam - Hospitaliston 06-30-2024 H&P Exam - Hospitalist Normal [facility] Ketones Test strip Ql (U)Ord ered By: Narendra Gonzalez on 06-30-2024 Ketones Ql (U) 5 mg/dl High Negative [facility] L499.0042on 06-30-2024 Trop T High Sen 98 ng/L Invalid Interpretation Code <=[address] [facility] Comment on above: Result Comment: Crit ical Result(s) Called at: 2337 by:??MATTHEW FLETCHER. Results read back by same. Performed By: #### L 499.0042 ####[facility] [address] [place], [address] L501.4021on 06-30-2024 Trop T High Sen 93 ng/L Invalid Interpretation Code <=[address] [facility] Comment on above: Order Comment: PT RE FUSED A PHLEBOTOMY DRAW. ONLY WOULD LET NURSE DRAW FROM LINE. Result Comment: Crit ical Result(s) Called at: 2144 by: SYD OVIEDO??Results read back by same. Performed By: #### L 501.4021 ####[facility] [address] [place], [place], [address] L503.7505on 06-30-2024 Natriuretic peptide B (Bld) [Mass/Vol] 20014 pg/mL High <=[address] [facility] Comment on above: Result Comment: Hear t Failure Unlikely: < 300 pg/mLHeart Failure Likely< 50 Years: > 450 pg/mL50-75 Years: > 900 pg/mL>75 Years: > 1800 pg/mL Performed By: #### L 503.7501 ####[facility] [address] [place], [place], [address] Lactic Acidon 06-30-2024 Lactate [Moles/Vol] 1.4 mmol/L Normal 0.0-2.0 [facility] Comment on above: Order Comment: Y Performed By: #### L 500.3400, L100.0100, L503.6005, L501.2450, L500.2500, L300.3900, L300.4310, L501.9100 ####[facility] [address] [place], [place], [address] Lipaseon 06-30-2024 Lipase [Catalytic activity/Vol] 6 U/L Low 13-[address] [facility] Comment on above: Result Comment: Mary Anne zamorano note:LIPASE revised reference range effective 22.New Lipase methodology. Expected to produce lower valuesthan the previous assay method.NEW Reference Range: 13 - 75 U/L Performed By: #### L 500.3400, L100.0100, L503.6005, L501.2450, L500.2500, L300.3900, L300.4310, L501.9100 ####[facility] [address] [place], [place], [address] Liver Profileon 06-30-2024 Albumin [Mass/Vol] 2.5 g/dL Low 3.4-4.8 [facility] Comment on above: Performed By: #### L 500.3400, L100.0100, L503.6005, L501.2450, L500.2500, L300.3900, L300.4310, L501.9100 ####[facility] [address] [place], [address] ALK PHOS 117 U/L Normal 40-[address] [facility] Comment on above: Performed By: #### L 500.3400, L100.0100, L503.6005, L501.2450, L500.2500, L300.3900, L300.4310, L501.9100 ####[facility] [address] [place], [address] ALT [Catalytic activity/Vol] 34 U/L Normal <=[address] [facility] Comment on above: Performed By: #### L 500.3400, L100.0100, L503.6005, L501.2450, L500.2500, L300.3900, L300.4310, L501.9100 ####[facility] [address] [place], [address] AST [Catalytic activity/Vol] 55 U/L High <=[address] [facility] Comment on above: Performed By: #### L 500.3400, L100.0100, L503.6005, L501.2450, L500.2500, L300.3900, L300.4310, L501.9100 ####[facility] [address] [place], [address] Bilirubin [Mass/Vol] 0.45 mg/dL Normal 0.00-1.30 [facility] Comment on above: Performed By: #### L 500.3400, L100.0100, L503.6005, L501.2450, L500.2500, L300.3900, L300.4310, L501.9100 ####[facility] [address] [place], [address] Bilirubin.direct [Mass/Vol] 0.27 mg/dL Normal 0.00-0.[address] [facility] Comment on above: Performed By: #### L 500.3400, L100.0100, L503.6005, L501.2450, L500.2500, L300.3900, L300.4310, L501.9100 ####[facility] [address] [place], [address] Globulin (S) [Mass/Vol] 2.6 g/dL Normal 2.2-4.[address] [facility] Comment on above: Performed By: #### L 500.3400, L100.0100, L503.6005, L501.2450, L500.2500, L300.3900, L300.4310, L501.9100 ####[facility] [address] [place], [address] T PROT 5.1 g/dL Low 5.9-8.[address] [facility] Comment on above: Performed By: #### L 500.3400, L100.0100, L503.6005, L501.2450, L500.2500, L300.3900, L300.4310, L501.9100 ####[facility] [address] [place], [address] Magnesiumon 06-30-2024 Magnesium [Mass/Vol] 1.6 mg/dL Normal 1.5-2.2 [facility] Comment on above: Performed By: #### L 501.5200 ####[facility] [address] [place], [address] Mucus LM Ql (Urine sed)Order ed By: Narendra Gonzalez on 06-30-2024 Mucus Ql (Urine sed) 0 SEEN /hpf [facility] Natriuretic peptide.B prohor irene N-Terminal [Mass/volume] in Serum or PlasmaOrdered By: Conrado Fraser on 06-30-2024 Natriuretic peptide.B prohormone N-Terminal [Mass/Vol] 83878 pg/mL High <[address] [facility] Nitrite Test strip Ql (U)Ord ered By: Narendra Gonzalez on 06-30-2024 Nitrite Ql (U) Negative Negative [facility] No Panel InformationOrdered By: Conrado Fraser on 06-30-[address] [facility] Not entered [facility] Room Air [facility] Partial Thromboplast Timeon 06-30-2024 aPTT Coag (Bld) [Time] 29.0 s Normal 24.1-36.2 [facility] Comment on above: Performed By: #### L 500.3400, L100.0100, L503.6005, L501.2450, L500.2500, L300.3900, L300.4310, L501.9100 ####[facility] [address] [place], [place], [address] Protein Test strip Ql (U)Ord ered By: Narendra Gonzalez on 06-30-2024 Protein Ql (U) 30 mg/dl High Negative [facility] Prothrombin Time w/INRon INR Coag (PPP) [Relative time] 1.2 {INR} Normal [facility] Comment on above: Performed By: #### L 500.3400, L100.0100, L503.6005, L501.2450, L500.2500, L300.3900, L300.4310, L501.9100 ####[facility] [address] [place], [address] PT Coag (PPP) [Time] 15.9 s High 11.7-14.9 [facility] Comment on above: Performed By: #### L 500.3400, L100.0100, L503.6005, L501.2450, L500.2500, L300.3900, L300.4310, L501.9100 ####[facility] [address] [place], [address] Serum or plasma ethanol luciana urement (mass/volume)Ordered By: Narendra Gonzalez on 06-30-2024 Ethanol [Mass/Vol] mg/dL <10.1 [facility] Squamous epithelial cells de tection in urine sediment by light microscopyOrdered By: Narendra Gonzalez on 06-30-2024 Epithelial cells.squamous LM Ql (Urine sed) 0-5 SEEN /hpf 0-[address] [facility] Troponin T.cardiac [Mass/vol ume] in Serum or Plasma by High sensitivity methodOrdered By: Conrado Fraser on 06-30-2024 Troponin T.cardiac High sensitivity method [Mass/Vol] 98 ng/L High <[address] [facility] Troponin T.cardiac High sensitivity method [Mass/Vol] 93 ng/L High <[address] [facility] Urinalysis, Completeon 06-30 EPI,SQUAMOUS 0-5 SEEN Normal 0-[address] [facility] Comment on above: Order Comment: CLEAN CATCH Performed By: #### L 400.0001 ####[facility] [address] [place], [address] RBC 0-5 SEEN Normal 0-[address] [facility] Comment on above: Order Comment: CLEAN CATCH Performed By: #### L 400.0001 ####[facility] [address] [place], [address] WBC 0-5 SEEN Normal 0-[address] [facility] Comment on above: Order Comment: CLEAN CATCH Performed By: #### L 400.0001 ####[facility] [address] [place], [address] BACTERIA 0 SEEN Normal None Seen [facility] Comment on above: Order Comment: CLEAN CATCH Performed By: #### L 400.0001 ####[facility] [address] [place], [address] Mucus Ql (Urine sed) [address] [facility] Comment on above: Order Comment: CLEAN CATCH Performed By: #### L 400.0001 ####[facility] [address] [place], [address] Urine clarityOrdered By: Abrahan Gonzalez on 06-30-2024 Clarity (U) Sl. Cloudy Clear [facility] Urine color determinationOrd ered By: Narendra Gonzalez on 06-30-2024 Color (U) Yellow Yellow [facility] Urine glucose detectionOrder ed By: Narendra Gonzalez on 06-30-2024 Glucose Ql (U) Normal mg/dl Normal [facility] Urine leukocyte esterase det ection by dipstickOrdered By: Narendra Gonzalez on 06-30-2024 Leukocyte esterase Test strip Ql (U) 25 /ul High Negative [facility] Urine pHOrdered By: Narendra velasquez on 06-30-2024 pH (U) 6.0 [pH] 5.0 - 8.[address] [facility] Urine sediment bacteria coun t by microscopy (number/high power field)Ordered By: Narendra Gonzalez on 06-30-2024 Bacteria LM.HPF (Urine sed) [#/Area] 0 /[HPF] None Seen [facility] Urine specific gravity measu rementOrdered By: Narendra Gonzalez on 06-30-2024 Specific gravity (U) [Rel density] 1.020 1.002-1.[address] [facility] Urine urobilinogen measureme ntOrdered By: Narendra Gonzalez on 06-30-2024 Urobilinogen Ql (U) Normal mg/dl Normal [facility] Venous Blood Gason Blood Gas Type ROSA Normal [facility] Comment on above: Performed By: #### L 9000.0810 ####[facility] [address] [facility] [address] CO2 [Moles/Vol] 29 mmol/L Normal - [facility] Comment on above: Performed By: #### L 9000.0810 ####[facility] [address] [place], [address] HCO3 (Bld) [Moles/Vol] 28 mmol/L High - [facility] Comment on above: Performed By: #### L 9000.0810 ####[facility] [address] [place], [address] O2 Delivery Dev Room Air Normal [facility] Comment on above: Performed By: #### L 9000.0810 ####[facility] [address] [place], [address] SITE Not entered Normal [facility] Comment on above: Performed By: #### L 9000.0810 ####[facility] [address] [place], [address] VBG BE 2 mmol/L Normal -1.0-3.[address] [facility] Comment on above: Performed By: #### L 9000.0810 ####[facility] [address] [place], [address] VBG pCO2 51.8 mmHg High 41-[address] [facility] Comment on above: Performed By: #### L 9000.0810 ####[facility] [address] [place], [place], [address] VBG pH 7.34 Normal 7.32-7.[address] [facility] Comment on above: Performed By: #### L 9000.0810 ####[facility] [address] [place], [place], [id number] VBG PO2 24 mmHg Low 25-[address] [facility] Comment on above: Performed By: #### L 9000.0810 ####[facility] [address] [place], [address] VBG SO2 37 Low 50-[address] [facility] Comment on above: Performed By: #### L 9000.0810 ####[facility] [address] [place], [address] Venous blood base excess mine surementOrdered By: Conrado Fraser on 06-30-2024 Base excess Calc (BldV) [Moles/Vol] 2 mmol/L -1.0-3.[address] [facility] Venous blood bicarbonate mine surementOrdered By: Conrado Fraser on 06-30-2024 HCO3 (Bld) [Moles/Vol] 28 mmol/L High 22-26 [facility] Venous blood pH measurementO rdered By: Conrado Fraser on 06-30-2024 pH (BldV) 7.34 [pH] 7.32-7.[address] [facility] Venous blood partial pressur e of carbon dioxide measurementOrdered By: Conrado Fraser on 06-30-2024 CO2 (BldV) [Partial pressure] 51.8 mm[Hg] High 41-[address] [facility] Venous blood partial pressur e of oxygen measurementOrdered By: Conrado Fraser on 06-30-2024 Oxygen (BldV) [Partial pressure] 24 mm[Hg] Low 25-[address] [facility] White blood cell countOrdere d By: Narendra Gonzalez on 06-30-2024 White blood cell count 0-5 SEEN /hpf 0-[address] [facility] Absolute lymphocyte countOrd ered By: Melonie De La Rosa on 06-28-2024 Lymphocytes Auto (Unsp spec) [#/Vol] 1.11 10*3/uL 0.83-4.[address] [facility] Absolute neutrophil countOrd ered By: Melonie De La Rosa on 06-28-2024 Neutrophils (Bld) [#/Vol] 3.5 10*3/uL 2.0-7.[address] [facility] Anion gap in Serum or Plasma Ordered By: Melonie De La Rosa on 06-28-2024 Anion gap [Moles/Vol] 7 mmol/L 5-15 [facility] Automated lymphocyte count a s percentage of total leukocytesOrdered By: Melonie De La Rosa on 06-28-2024 Lymphocytes/100 WBC Auto (Unsp spec) 21.1 % 19-[address] [facility] BUN/creatinine ratioOrdered By: Melonie De La Rosa on 06-28-2024 Urea nitrogen/Creatinine [Mass ratio] 7.0 mg/mg Low 10- [facility] Basic Metabolic Profile (BMP )on 06-28-2024 BUN/CRE 7.0 RATIO Low - [facility] Comment on above: Performed By: #### L 500.2500, L100.0100 ####[facility] [address] [place], [address] Calcium [Mass/Vol] 7.7 mg/dL Normal 7.6-11.0 [facility] Comment on above: Performed By: #### L 500.2500, L100.0100 ####[facility] [address] [place], [address] Chloride [Moles/Vol] 107 mmol/L Normal 98-108 [facility] Comment on above: Performed By: #### L 500.2500, L100.0100 ####[facility] [address] [place], [address] CO2 [Moles/Vol] 25.1 mmol/L Normal 21.0-32.[address] [facility] Comment on above: Performed By: #### L 500.2500, L100.0100 ####[facility] [address] [place], [address] Creatinine [Mass/Vol] 1.11 mg/dL Normal 0.70-1.20 [facility] Comment on above: Performed By: #### L 500.2500, L100.0100 ####[facility] [address] [place], [address] ECRCL 74.04 ml/min Normal 50-[address] [facility] Comment on above: Performed By: #### L 500.2500, L100.0100 ####[facility] [address] [place], [address] GAP 7 Normal 5-[address] [facility] Comment on above: Performed By: #### L 500.2500, L100.0100 ####[facility] [address] [place], [address] GFR/1.73 sq M.predicted among non-blacks MDRD (S/P/Bld) [Vol rate/Area] 76 mL/min/{1.73_m2} Normal >[address] [facility] Comment on above: Result Comment: mL/m in/1.73m2 CKD-EPI Creatinine Equation (2020) Performed By: #### L 500.2500, L100.0100 ####[facility] [address] [place], [address] Glucose [Mass/Vol] 187 mg/dL High 70-99 [facility] Comment on above: Performed By: #### L 500.2500, L100.0100 ####[facility] [address] [place], [address] Potassium [Moles/Vol] 4.1 mmol/L Normal 3.3-5.1 [facility] Comment on above: Result Comment: Hemo lysis present, Results??could be affected.?? Performed By: #### L 500.2500, L100.0100 ####[facility] [address] [place], [address] Sodium [Moles/Vol] 139 mmol/L Normal 133-145 [facility] Comment on above: Performed By: #### L 500.2500, L100.0100 ####[facility] [address] [place], [address] Urea nitrogen [Mass/Vol] 8 mg/dL Normal 4-[address] [facility] Comment on above: Performed By: #### L 500.2500, L100.0100 ####[facility] [address] [place], [address] Basophil percentageOrdered B y: Melonie De La Rosa on 06-28-2024 Basophils/100 WBC (Bld) 0.9 % 0-1 [facility] Bedside Glucoseon 06-28-2024 FINGERSTICK GLU 252 mg/dL High 74-[address] [facility] Comment on above: Result Comment: DAYANARA MORENO OF PATIENT CARE PER NURSING PROTOCOL Performed By: #### L 501.080 ####[facility] [address] [place], [address] FINGERSTICK GLU 161 mg/dL High 74-[address] [facility] Comment on above: Result Comment: DAYANARA MORENO OF PATIENT CARE PER NURSING PROTOCOL Performed By: #### L 501.080 ####[facility] [address] [place], [address] CBC W/Diff, Automatedon 05-2 Absolute Lymph 1.11 X10 3/uL Normal 0.83-4.[address] [facility] Comment on above: Performed By: #### L 500.2500, L100.0100 ####[facility] [address] [place], [address] Absolute Neut 3.5 X10 3/uL Normal 2.0-7.[address] [facility] Comment on above: Performed By: #### L 500.2500, L100.0100 ####[facility] [address] [place], [address] Basophils/100 WBC (Bld) 0.9 % Normal 0-1 [facility] Comment on above: Performed By: #### L 500.2500, L100.0100 ####[facility] [address] [place], [address] Eosinophils/100 WBC (Bld) 0.9 % Normal 0-[address] [facility] Comment on above: Performed By: #### L 500.2500, L100.0100 ####[facility] [address] [place], [address] Erythrocyte distribution width (RBC) [Ratio] 17.0 % High 11.6-14.[address] [facility] Comment on above: Performed By: #### L 500.2500, L100.0100 ####[facility] [address] [place], [address] Hematocrit (Bld) [Volume fraction] 28.9 % Low 40-[address] [facility] Comment on above: Performed By: #### L 500.2500, L100.0100 ####[facility] [address] [place], [address] Hemoglobin (Bld) [Mass/Vol] 9.5 g/dL Low 13.0-16.[address] [facility] Comment on above: Performed By: #### L 500.2500, L100.0100 ####[facility] [address] [place], [address] IG% 0.400 Normal 0.0-0.[address] [facility] Comment on above: Result Comment: IG% - Immature Granulocytes (promyelocytes, myelocytes andmetamyelocytes) > 1% indicates that a LEFT SHIFT is Present. Performed By: #### L 500.2500, L100.0100 ####[facility] [address] [place], [address] Lymphocytes/100 WBC (Bld) 21.1 % Normal 19-[address] [facility] Comment on above: Performed By: #### L 500.2500, L100.0100 ####[facility] [address] [place], [address] MCH (RBC) [Entitic mass] 35.7 pg High 27.0-32.[address] [facility] Comment on above: Performed By: #### L 500.2500, L100.0100 ####[facility] [address] [place], [address] MCHC (RBC) [Mass/Vol] 32.9 g/dL Normal 32-36 [facility] Comment on above: Performed By: #### L 500.2500, L100.0100 ####[facility] [address] [place], [address] MCV (RBC) [Entitic vol] 108.6 fL High 80-94 [facility] Comment on above: Performed By: #### L 500.2500, L100.0100 ####[facility] [address] [place], [address] Monocytes/100 WBC (Bld) 9.9 % Normal 0-10 [facility] Comment on above: Performed By: #### L 500.2500, L100.0100 ####[facility] [address] [place], [address] Neutrophils/100 WBC (Bld) 66.8 % Normal 47-[address] [facility] Comment on above: Performed By: #### L 500.2500, L100.0100 ####[facility] [address] [place], [address] Nucleated RBC (Bld) [#/Vol] 0.4 10*3/uL Normal 0-[address] [facility] Comment on above: Performed By: #### L 500.2500, L100.0100 ####[facility] [address] [place], [address] Platelet mean volume (Bld) [Entitic vol] 11.4 fL Normal 6.2-12.[address] [facility] Comment on above: Performed By: #### L 500.2500, L100.0100 ####[facility] [address] [place], [address] Platelets (Bld) [#/Vol] 129 10*3/uL Low 150-[address] [facility] Comment on above: Performed By: #### L 500.2500, L100.0100 ####[facility] [address] [place], [address] RBC (Bld) [#/Vol] 2.66 10*6/uL Low 4.6-6.2 [facility] Comment on above: Performed By: #### L 500.2500, L100.0100 ####[facility] [address] [place], [address] RDW SD 68.0 fl High 35.1-43.[address] [facility] Comment on above: Performed By: #### L 500.2500, L100.0100 ####[facility] [address] [place], [address] WBC (Bld) [#/Vol] 5.3 10*3/uL Normal 4.4-11.0 [facility] Comment on above: Performed By: #### L 500.2500, L100.0100 ####[facility] [address] [place], [address] Carbon dioxide, total [Moles /volume] in Central venous bloodOrdered By: Melonie De La Rosa on 06-28-2024 CO2 [Moles/Vol] 25.1 mmol/L 21.0-32.[address] [facility] Chloride assayOrdered By: Anel De La Rosa on 06-28-2024 Chloride [Moles/Vol] 107 mmol/L 98-108 [facility] Eosinophil percentageOrdered By: Melonie De La Rosa on 06-28-2024 Eosinophils/100 WBC (Bld) 0.9 % 0-[address] [facility] Erythrocyte distribution wid th ratioOrdered By: Melonie De La Rosa on 06-28-2024 Erythrocyte distribution width (RBC) [Ratio] 17.0 % High 11.6-14.[address] [facility] Erythrocyte distribution wid th standard deviationOrdered By: Melonie De La Rosa on 06-28-2024 Erythrocyte distribution width (RBC) [Ratio] 68.0 fl High 35.1-43.[address] [facility] Glomerular filtration rate ( GFR) estimation/1.73 sq m using serum, plasma, or whole bOrdered By: Melonie De La Rosa on 06-28-2024 GFR/1.73 sq M.predicted among non-blacks MDRD (S/P/Bld) [Vol rate/Area] 76 mL/min/{1.73_m2} >[address] [facility] Comment on above: mL/min/1.73m2 CKD-EP I Creatinine Equation (2020) [facility] deOrdered By: Melonie De La Rosa on 06-28-2024 Glucose [Mass/Vol] 252 mg/dL High 74-106 [facility] Comment on above: MANAGEMENT OF PATIEN T CARE PER NURSING PROTOCOL Hematocrit Auto (Bld) [Volum e fraction]Ordered By: Melonie De La Rosa on 06-28-2024 Hematocrit (Bld) [Volume fraction] 28.9 % Low 40-[address] [facility] Hemoglobin measurementOrdere d By: Melonie De La Rosa on 06-28-2024 Hemoglobin (Bld) [Mass/Vol] 9.5 g/dL Low 13.0-16.[address] [facility] Immature granulocytes/100 WB C Auto (Bld)Ordered By: Melonie De La Rosa on 06-28-2024 Immature granulocytes/100 WBC (Bld) 0.400 % 0.0-0.[address] [facility] Comment on above: IG% - Immature Granu locytes (promyelocytes, myelocytes and metamyelocytes) > 1% indicates that a LEFT SHIFT is Present. MCV (mean corpuscular volume ) determinationOrdered By: Melonie De La Rosa on 06-28-2024 MCV (RBC) [Entitic vol] 108.6 fL High 80-94 [facility] Mean corpuscular hemoglobin (MCH) determinationOrdered By: Melonie De La Rosa on 06-28-2024 MCH (RBC) [Entitic mass] 35.7 pg High 27.0-32.[address] [facility] Mean corpuscular hemoglobin concentration (MCHC) determinationOrdered By: Melonie De La Rosa on 06-28-2024 MCHC (RBC) [Mass/Vol] 32.9 g/dL 32-36 [facility] Mean platelet volume determi nationOrdered By: Melonie De La Rosa on 06-28-2024 Platelet mean volume (Bld) [Entitic vol] 11.4 fL 6.2-12.[address] [facility] Monocyte percentageOrdered B y: Melonie De La Rosa on 06-28-2024 Monocytes/100 WBC (Bld) 9.9 % 0-10 [facility] Neutrophil percentageOrdered By: Melonie De La Rosa on 06-28-2024 Neutrophils/100 WBC (Bld) 66.8 % 47-[address] [facility] Nucleated red blood cell per centageOrdered By: Melonie De La Rosa on 06-28-2024 Nucleated RBC/100 WBC (Bld) [Ratio] 0.4 % 0-[address] [facility] Platelet countOrdered By: Anel De La Rosa on 06-28-2024 Platelets (Bld) [#/Vol] 129 10*3/uL Low 150-[address] [facility] Potassium measurement (mass/ volume)Ordered By: Melonie De La Rosa on 06-28-2024 Potassium (Unsp spec) [Mass/Vol] 4.1 mmol/L 3.3-5.[address] [facility] Comment on above: Hemolysis present, R esults could be affected. RBC Auto (Bld) [#/Vol]Ordere d By: Melonie De La Rosa on 06-28-2024 RBC (Bld) [#/Vol] 2.66 10*6/uL Low 4.6-6.2 [facility] Serum creatinine measurement (mass/volume)Ordered By: Melonie De La Rosa on 06-28-2024 Creatinine [Mass/Vol] 1.11 mg/dL 0.70-1.20 [facility] Serum glucose measurement (m ass/volume)Ordered By: Melonie De La Rosa on 06-28-2024 Glucose [Mass/Vol] 187 mg/dL High 70-99 [facility] Serum or plasma calcium luciana urement (mass/volume)Ordered By: Melonie De La Rosa on 06-28-2024 Calcium [Mass/Vol] 7.7 mg/dL 7.6-11.0 [facility] Serum or plasma urea nitroge n measurement (mass/volume)Ordered By: Melonie De La Rosa on 06-28-2024 Urea nitrogen [Mass/Vol] 8 mg/dL 4-[address] [facility] Sodium levelOrdered By: Savannah De La Rosa on 06-28-2024 Sodium [Moles/Vol] 139 mmol/L 133-145 [facility] White blood cell (WBC) count Ordered By: Melonie De La Rosa on 06-28-2024 WBC (Bld) [#/Vol] 5.3 10*3/uL 4.4-11.0 [facility] Activated partial thrombopla stin time (aPTT) in platelet poor plasma by coagulation aOrdered By: Carlos Yanes on 06-27-2024 aPTT Coag (PPP) [Time] 30.2 s 24.1-36.2 [facility] Basic Metabolic Profile (BMP )on 06-27-2024 BUN/CRE 6.6 RATIO Low 10-[address] [facility] Comment on above: Performed By: #### L 500.2500, L501.2300, L501.5200 ####[facility] [address] [place], [address] Calcium [Mass/Vol] 7.3 mg/dL Low 7.6-11.0 [facility] Comment on above: Performed By: #### L 500.2500, L501.2300, L501.5200 ####[facility] [address] [place], [address] Chloride [Moles/Vol] 109 mmol/L High 98-108 [facility] Comment on above: Performed By: #### L 500.2500, L501.2300, L501.5200 ####[facility] [address] [place], [address] CO2 [Moles/Vol] 25.2 mmol/L Normal 21.0-32.[address] [facility] Comment on above: Performed By: #### L 500.2500, L501.2300, L501.5200 ####[facility] [address] [place], [address] Creatinine [Mass/Vol] 1.07 mg/dL Normal 0.70-1.20 [facility] Comment on above: Performed By: #### L 500.2500, L501.2300, L501.5200 ####[facility] [address] [place], [address] ECRCL 77.11 ml/min Normal 50-[address] [facility] Comment on above: Performed By: #### L 500.2500, L501.2300, L501.5200 ####[facility] [address] [place], [address] GAP 8 Normal 5-[address] [facility] Comment on above: Performed By: #### L 500.2500, L501.2300, L501.5200 ####[facility] [address] [place], [address] GFR/1.73 sq M.predicted among non-blacks MDRD (S/P/Bld) [Vol rate/Area] 79 mL/min/{1.73_m2} Normal >[address] [facility] Comment on above: Result Comment: mL/m in/1.73m2 CKD-EPI Creatinine Equation (2020) Performed By: #### L 500.2500, L501.2300, L501.5200 ####[facility] [address] [place], [address] Glucose [Mass/Vol] 134 mg/dL High 70-99 [facility] Comment on above: Performed By: #### L 500.2500, L501.2300, L501.5200 ####[facility] [address] [place], [address] Potassium [Moles/Vol] 3.5 mmol/L Normal 3.3-5.1 [facility] Comment on above: Performed By: #### L 500.2500, L501.2300, L501.5200 ####[facility] [address] [place], [address] Sodium [Moles/Vol] 142 mmol/L Normal 133-145 [facility] Comment on above: Performed By: #### L 500.2500, L501.2300, L501.5200 ####[facility] [address] [place], [address] Urea nitrogen [Mass/Vol] 7 mg/dL Normal 4-[address] [facility] Comment on above: Performed By: #### L 500.2500, L501.2300, L501.5200 ####[facility] [address] [place], [address] Bedside Glucoseon 06-27-2024 FINGERSTICK GLU 216 mg/dL High 74-[address] [facility] Comment on above: Result Comment: DAYANARA GEMENT OF PATIENT CARE PER NURSING PROTOCOL Performed By: #### L 501.080 ####[facility] [address] [place], [address] FINGERSTICK GLU 122 mg/dL High [address] [place] [address] Comment on above: Result Comment: DAYANARA GEMENT OF PATIENT CARE PER NURSING PROTOCOL Performed By: #### L 501.080 ####[facility] [address] [place], [address] FINGERSTICK GLU 111 mg/dL High -[address] [facility] Comment on above: Result Comment: DAYANARA GEMENT OF PATIENT CARE PER NURSING PROTOCOL Performed By: #### L 501.080 ####[facility] [address] [place], [address] FINGERSTICK GLU 209 mg/dL High [facility] [facility] Comment on above: Result Comment: DAYANARA GEMENT OF PATIENT CARE PER NURSING PROTOCOL Performed By: #### L 501.080 ####[facility] [address] [place], [address] FINGERSTICK GLU 131 mg/dL High [address] [place] [address] Comment on above: Result Comment: DAYANARA GEMENT OF PATIENT CARE PER NURSING PROTOCOL Performed By: #### L 501.080 ####[facility] [address] [place], [address] Body Fluid Culton 06-27-2024 BFC Culture exhibits no growth. Normal [facility] Comment on above: Performed By: #### M 100.2000, M100.2900, M100.4001 ####[facility] [address] [place], [address] CBC W/Diff, AutomatedOrdered By: Melonie De La Rosa on 06-27-2024 Anisocytosis Ql (Bld) 1+ Normal [facility] Comment on above: Performed By: #### L 100.0100 ####[facility] [address] [place], [address] EGD Reporton 06-27-2024 EGD Report Normal [facility] Glucose, Body Fluidon 2024 GLUC, BODY FLD 201 mg/dL Normal Not Establ. [facility] Comment on above: Performed By: #### L 503.0100 ####[facility] [address] [place], [address] Gram Stainon 06-27-2024 GS Gram Stain No organisms seen Normal [facility] Comment on above: Performed By: #### M 100.2000, M100.2900, M100.4001 ####[facility] [address] [place], [address] Immunohistochemical Stainson 06-27-2024 Immunohistochemical Stains Normal [facility] Comment on above: Performed By: #### P IMHI ####[facility] [address] [place], [address] International normalized rat io (INR) calculationOrdered By: Carlos Yanes on 06-27-2024 INR Coag (Bld) [Relative time] 1.4 {INR} [facility] MR/POSTOP.ANEon 06-27-2024 MR/POSTOP.ANE Normal [facility] MR/EDFOWUWD5bt 06-27-2024 MR/POSTOPAN2 Normal [facility] Magnesiumon 06-27-2024 Magnesium [Mass/Vol] 1.5 mg/dL Normal 1.5-2.2 [facility] Comment on above: Performed By: #### L 500.2500, L501.2300, L501.5200 ####[facility] [address] [place], [address] Magnesium measurement (mass/ volume)Ordered By: Melonie De La Rosa on 06-27-2024 Magnesium (Unsp spec) [Mass/Vol] 1.5 mg/dL 1.5-2.[address] [facility] No Panel InformationOrdered By: Melonie De La Rosa on 06-27-2024 1+ [facility] Partial Thromboplast Timeon 06-27-2024 aPTT Coag (Bld) [Time] 30.2 s Normal 24.1-36.2 [facility] Comment on above: Performed By: #### L 300.4310, L300.3900 ####[facility] [address] [place], [address] Phosphoruson 06-27-2024 Phosphate [Mass/Vol] 2.7 mg/dL Normal 2.7-4.5 [facility] Comment on above: Performed By: #### L 500.2500, L501.2300, L501.5200 ####[facility] [address] [place], [address] Protein, Body Fluidon 2024 Protein [Mass/Vol] 0.3 g/dL Normal Not Establ. [facility] Comment on above: Performed By: #### L 503.0300 ####[facility] [address] [place], [address] Prothrombin Time w/INRon INR Coag (PPP) [Relative time] 1.4 {INR} Normal [facility] Comment on above: Performed By: #### L 300.4310, L300.3900 ####[facility] [address] [place], [address] Prothrombin timeOrdered By: Carlos Yanes on 06-27-2024 PT Coag (PPP) [Time] 17.4 s High 11.7-14.9 [facility] Comment on above: Performed By: #### L 300.4310, L300.3900 ####[facility] [address] [place], [address] Anaerobic cultureOrdered By: Melonie De La Rosa on 06-26-2024 Bacteria identified Anaer cx Nom (Unsp spec) No growth in [address] [facility] Bedside Glucoseon 06-26-2024 FINGERSTICK GLU 201 mg/dL High 74-[address] [facility] Comment on above: Result Comment: DAYANARA GEMENT OF PATIENT CARE PER NURSING PROTOCOL Performed By: #### L 501.080 ####[facility] [address] [facility] [address] FINGERSTICK GLU 138 mg/dL High [address] [facility] Comment on above: Result Comment: DAYANARA GEMENT OF PATIENT CARE PER NURSING PROTOCOL Performed By: #### L 501.080 ####[facility] [address] [facility] [address] FINGERSTICK GLU 172 mg/dL High -[address] [facility] Comment on above: Result Comment: DAYANARA GEMENT OF PATIENT CARE PER NURSING PROTOCOL Performed By: #### L 501.080 ####[facility] [address] [facility] [address] FINGERSTICK GLU 197 mg/dL High [address] [place] [address] Comment on above: Result Comment: DAYANARA GEMENT OF PATIENT CARE PER NURSING PROTOCOL Performed By: #### L 501.080 ####[facility] [address] [facility] [address] Bilirubin directOrdered By: Carlos Yanes on 06-26-2024 Bilirubin.direct [Mass/Vol] 0.23 mg/dL 0.00-0.[address] [facility] Bilirubin, totalOrdered By: Carlos Yanes on 06-26-2024 Bilirubin [Mass/Vol] 0.42 mg/dL 0.00-1.30 [facility] Body fluid appearance (nomin al result)Ordered By: Melonie De La Rosa on 06-26-2024 Appearance (Body fld) CLEAR [facility] Body fluid color determinati onOrdered By: Melonie De La Rosa on 06-26-2024 Color (Body fld) YELLOW [facility] Body fluid cultureOrdered By : Melonie De La Rosa on 06-26-2024 Microbial culture, body fluid Culture exhibits no growth. [facility] Body fluid leukocytes count (number/volume)Ordered By: Melonie De La Rosa on 06-26-2024 WBC (Body fld) [#/Vol] 0.010 10*3/uL [facility] Body fluid lymphocytes/100 l eukocytesOrdered By: Melonie De La Rosa on 06-26-2024 Lymphocytes/100 WBC (Body fld) 17 % [facility] Body fluid macrophage countO rdered By: Melonie De La Rosa on 06-26-2024 Macrophages (Body fld) [#/Vol] 56 % [facility] Body fluid mesothelial cell percentageOrdered By: Melonie De La Rosa on 06-26-2024 Mesothelial cells/100 WBC (Body fld) 21 % [facility] Body fluid mononuclear cell percentageOrdered By: Melonie De aL Rosa on 06-26-2024 Mononuclear cells/100 WBC (Body fld) 90.0 % [facility] Body fluid protein measureme nt (mass/volume)Ordered By: Melonie De La Rosa on 06-26-2024 Protein (Body fld) [Mass/Vol] 0.3 g/dL Not Establ. [facility] Body fluid segmented neutrop hils count (number/volume)Ordered By: Melonie De La Rosa on 06-26-2024 Segmented neutrophils (Body fld) [#/Vol] 6 % [facility] Body fluid total cell countO rdered By: Melonie De La Rosa on 06-26-2024 Cells Counted Total (Body fld) [#] 0.012 10^3/ul [facility] Comment on above: This is the Total Nu mber of Nucleated Cell Types in the Body Fluid. CBC W/Diff, Automatedon 06-08 Absolute Lymph 0.89 X10 3/uL Normal 0.83-4.[address] [facility] Comment on above: Performed By: #### L 100.0100, L501.9520, L501.2300, L500.4050, L500.4100 ####[facility] [address] [place], [place], [address] Absolute Neut 3.3 X10 3/uL Normal 2.0-7.[address] [facility] Comment on above: Performed By: #### L 100.0100, L501.9520, L501.2300, L500.4050, L500.4100 ####[facility] [address] [place], [address] Basophils/100 WBC (Bld) 0.8 % Normal 0-1 [facility] Comment on above: Performed By: #### L 100.0100, L501.9520, L501.2300, L500.4050, L500.4100 ####[facility] [address] [place], [address] Eosinophils/100 WBC (Bld) 0.4 % Normal 0-[address] [facility] Comment on above: Performed By: #### L 100.0100, L501.9520, L501.2300, L500.4050, L500.4100 ####[facility] [address] [place], [address] Erythrocyte distribution width (RBC) [Ratio] 16.3 % High 11.6-14.[address] [facility] Comment on above: Performed By: #### L 100.0100, L501.9520, L501.2300, L500.4050, L500.4100 ####[facility] [address] [place], [address] Hematocrit (Bld) [Volume fraction] 27.1 % Low 40-[address] [facility] Comment on above: Performed By: #### L 100.0100, L501.9520, L501.2300, L500.4050, L500.4100 ####[facility] [address] [place], [address] Hemoglobin (Bld) [Mass/Vol] 9.3 g/dL Low 13.0-16.[address] [facility] Comment on above: Performed By: #### L 100.0100, L501.9520, L501.2300, L500.4050, L500.4100 ####[facility] [address] [place], [address] IG% 0.200 Normal 0.0-0.[address] [facility] Comment on above: Result Comment: IG% - Immature Granulocytes (promyelocytes, myelocytes andmetamyelocytes) > 1% indicates that a LEFT SHIFT is Present. Performed By: #### L 100.0100, L501.9520, L501.2300, L500.4050, L500.4100 ####[facility] [address] [place], [address] Lymphocytes/100 WBC (Bld) 18.4 % Low 19-[address] [facility] Comment on above: Performed By: #### L 100.0100, L501.9520, L501.2300, L500.4050, L500.4100 ####[facility] [address] [place], [address] MCH (RBC) [Entitic mass] 36.3 pg High 27.0-32.[address] [facility] Comment on above: Performed By: #### L 100.0100, L501.9520, L501.2300, L500.4050, L500.4100 ####[facility] [address] [place], [address] MCHC (RBC) [Mass/Vol] 34.3 g/dL Normal 32-36 [facility] Comment on above: Performed By: #### L 100.0100, L501.9520, L501.2300, L500.4050, L500.4100 ####[facility] [address] [place], [address] MCV (RBC) [Entitic vol] 105.9 fL High 80-94 [facility] Comment on above: Performed By: #### L 100.0100, L501.9520, L501.2300, L500.4050, L500.4100 ####[facility] [address] [place], [address] Monocytes/100 WBC (Bld) 11.8 % High 0-10 [facility] Comment on above: Performed By: #### L 100.0100, L501.9520, L501.2300, L500.4050, L500.4100 ####[facility] [address] [place], [address] Neutrophils/100 WBC (Bld) 68.4 % Normal 47-[address] [facility] Comment on above: Performed By: #### L 100.0100, L501.9520, L501.2300, L500.4050, L500.4100 ####[facility] [address] [place], [address] Nucleated RBC (Bld) [#/Vol] 0 10*3/uL Normal 0-[address] [facility] Comment on above: Performed By: #### L 100.0100, L501.9520, L501.2300, L500.4050, L500.4100 ####[facility] [address] [place], [address] Platelet mean volume (Bld) [Entitic vol] 11.6 fL Normal 6.2-12.[address] [facility] Comment on above: Performed By: #### L 100.0100, L501.9520, L501.2300, L500.4050, L500.4100 ####[facility] [address] [place], [address] Platelets (Bld) [#/Vol] 100 10*3/uL Low 150-[address] [facility] Comment on above: Performed By: #### L 100.0100, L501.9520, L501.2300, L500.4050, L500.4100 ####[facility] [address] [place], [address] RBC (Bld) [#/Vol] 2.56 10*6/uL Low 4.6-6.2 [facility] Comment on above: Performed By: #### L 100.0100, L501.9520, L501.2300, L500.4050, L500.4100 ####[facility] [address] [place], [address] RDW SD 63.6 fl High 35.1-43.[address] [facility] Comment on above: Performed By: #### L 100.0100, L501.9520, L501.2300, L500.4050, L500.4100 ####[facility] [address] [place], [address] WBC (Bld) [#/Vol] 4.8 10*3/uL Normal 4.4-11.0 [facility] Comment on above: Performed By: #### L 100.0100, L501.9520, L501.2300, L500.4050, L500.4100 ####[facility] [address] [place], [address] CDIFF (PCR)on 06-26-2024 CDIFF Normal [facility] Comment on above: Performed By: #### M 100.6796, M100.637, M100.0605 ####[facility] [address] [place], [address] CNPNon 06-26-2024 CNPN Telephone (AGFAMPLE) ANALILIA MELENDREZ ([id number]) 1960 M Date Time Provider Department 06/26/24 [...] in. Please advise. FLORENTINO Jackson Brittny A, VIRIDIANA.ACCOUNT SUPPORT ASSOCIATE 06/26/2024 9:57 AM Signed Will address in next OV. Allergies As of Date: 06/26/2024 (No Known Allergies) Date Reviewed: 04/12/2024 Reviewed by: Vandana Edwards - Fully Assessed Reason for Visit: Lab Orders [3328] Prescriptions as of 06/26/2024 - UNIFINE PENTIPS [...] fourteen (14) days to upper arm. - vbdghy-jwcjpkqw-ixrjvxe (CREON 36) 36,000-114,000- 180,000 unit delayed release capsule Take 2 pills by mouth with first bite of meal and take 1 pill with snacks. Max 10 per day. - Cholecalciferol, Vitamin D3, (VITAMIN D-3) 50 mcg (2,000 unit) cap Take 1 capsule by mouth once daily. 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 Normal [facility] Calculated very low density lipoprotein (VLDL) cholesterol measurementOrdered By: Conrado Fraser on 06-26-2024 Calculated very low density lipoprotein (VLDL) cholesterol measurement 18 mg/dL 5-[address] [facility] Comprehensive Metabolic Prof ilon 06-26-2024 Albumin [Mass/Vol] 2.1 g/dL Low 3.4-4.8 [facility] Comment on above: Performed By: #### L 100.0100, L501.9520, L501.2300, L500.4050, L500.4100 ####[facility] [address] [place], [address] Albumin/Globulin [Mass ratio] 1.0 {ratio} Normal 0.9-2.[address] [facility] Comment on above: Performed By: #### L 100.0100, L501.9520, L501.2300, L500.4050, L500.4100 ####[facility] [address] [place], [address] ALK PHOS 102 U/L Normal 40-[address] [facility] Comment on above: Performed By: #### L 100.0100, L501.9520, L501.2300, L500.4050, L500.4100 ####[facility] [address] [place], [address] ALT [Catalytic activity/Vol] 26 U/L Normal <=[address] [facility] Comment on above: Performed By: #### L 100.0100, L501.9520, L501.2300, L500.4050, L500.4100 ####[facility] [address] [place], [address] AST [Catalytic activity/Vol] 49 U/L High <=[address] [facility] Comment on above: Performed By: #### L 100.0100, L501.9520, L501.2300, L500.4050, L500.4100 ####[facility] [address] [place], [address] Bilirubin [Mass/Vol] 0.42 mg/dL Normal 0.00-1.30 [facility] Comment on above: Performed By: #### L 100.0100, L501.9520, L501.2300, L500.4050, L500.4100 ####[facility] [address] [place], [address] BUN/CRE 6.5 RATIO Low 10-[address] [facility] Comment on above: Performed By: #### L 100.0100, L501.9520, L501.2300, L500.4050, L500.4100 ####[facility] [address] [place], [address] Calcium [Mass/Vol] 7.1 mg/dL Low 7.6-11.0 [facility] Comment on above: Performed By: #### L 100.0100, L501.9520, L501.2300, L500.4050, L500.4100 ####[facility] [address] [place], [address] Chloride [Moles/Vol] 107 mmol/L Normal 98-108 [facility] Comment on above: Performed By: #### L 100.0100, L501.9520, L501.2300, L500.4050, L500.4100 ####[facility] [address] [place], [address] CO2 [Moles/Vol] 24.9 mmol/L Normal 21.0-32.[address] [facility] Comment on above: Performed By: #### L 100.0100, L501.9520, L501.2300, L500.4050, L500.4100 ####[facility] [address] [place], [address] Creatinine [Mass/Vol] 0.97 mg/dL Normal 0.70-1.20 [facility] Comment on above: Performed By: #### L 100.0100, L501.9520, L501.2300, L500.4050, L500.4100 ####[facility] [address] [place], [address] ECRCL 84.27 ml/min Normal 50-[address] [facility] Comment on above: Performed By: #### L 100.0100, L501.9520, L501.2300, L500.4050, L500.4100 ####[facility] [address] [place], [address] GAP 10 Normal 5-[address] [facility] Comment on above: Performed By: #### L 100.0100, L501.9520, L501.2300, L500.4050, L500.4100 ####[facility] [address] [place], [address] GFR/1.73 sq M.predicted among non-blacks MDRD (S/P/Bld) [Vol rate/Area] 88 mL/min/{1.73_m2} Normal >[address] [facility] Comment on above: Result Comment: mL/m in/1.73m2 CKD-EPI Creatinine Equation (2020) Performed By: #### L 100.0100, L501.9520, L501.2300, L500.4050, L500.4100 ####[facility] [address] [place], [address] Globulin (S) [Mass/Vol] 2.1 g/dL Low 2.2-4.2 [facility] Comment on above: Performed By: #### L 100.0100, L501.9520, L501.2300, L500.4050, L500.4100 ####[facility] [address] [place], [address] Glucose [Mass/Vol] 180 mg/dL High 70-99 [facility] Comment on above: Performed By: #### L 100.0100, L501.9520, L501.2300, L500.4050, L500.4100 ####[facility] [address] [place], [address] Potassium [Moles/Vol] 2.7 mmol/L Invalid Interpretation Code 3.3-5.[address] [facility] Comment on above: Result Comment: Crit ical Result(s) Called at 0735: by: ESTEFANY GOLDMAN. ??Results read back by same. Performed By: #### L 100.0100, L501.9520, L501.2300, L500.4050, L500.4100 ####[facility] [address] [place], [address] Sodium [Moles/Vol] 142 mmol/L Normal 133-145 [facility] Comment on above: Performed By: #### L 100.0100, L501.9520, L501.2300, L500.4050, L500.4100 ####[facility] [address] [place], [address] T PROT 4.3 g/dL Low 5.9-8.[address] [facility] Comment on above: Performed By: #### L 100.0100, L501.9520, L501.2300, L500.4050, L500.4100 ####[facility] [address] [place], [address] Urea nitrogen [Mass/Vol] 6 mg/dL Normal -[address] [facility] Comment on above: Performed By: #### L 100.0100, L501.9520, L501.2300, L500.4050, L500.4100 ####[facility] [address] [place], [address] Cytology report of Body flui d Cyto stainOrdered By: Melonie De La Rosa on 06-26-2024 Cytology report Cyto stain Doc (Body fld) SEE PATHOLOGY REPORT [facility] ENTERIC PATHOGEN PANEL STOOL on 06-26-2024 EP PANEL Normal [facility] Comment on above: Performed By: #### M 100.6796, M100.637, M100.0605 ####[facility] [address] [place], [address] Electrocardiogram reportOrde red By: Trung Bob on 06-26-2024 EKG study [facility] [address] [place] [address] 12 Lead EKG 06/25/241934 MR#: [id number] Acct: [id number] Name: ANALILIA MELENDREZ Rep #:[id number] : 1960 63 From: Trung Bob MD Attending Dr: DO Yesi Looney tatus: ADM IN Ordering Dr: Rolan Romero ate: 06/25/24 Location: [facility] Sex: M C Admitted: 06/25/24 Test Reason [...] ECG Confirmed by PAULINO FRANCISCO, TRUNG ([id number]), editorial manager CARLOS ROBLES ([id number]) on 06/26/2024 9:28:17 AM Referred By: Rolan Romero Confirmed By: TRUNG BOB MD 06/26/24 0928 Date _ Trung Bob MD CC: ALAN Wagner; Dr. Rolan Romero DO; Dr. Melonie De La Rosa DO ~ Signed [facility] Work Phone: Gram stainOrdered By: Palak De La Rosa on 06-26-2024 Microscopic observation Gram stain Nom (Unsp spec) [facility] Hemoglobin A1con 06-26-2024 HbA1c (Bld) [Mass fraction] 6.6 % High <=5.[address] [facility] Comment on above: Result Comment: Norm al < 5.7 % Prediabetic 5.7 - 6.4 % Diabetic >or= 6.5 % Please note range changes. Performed By: #### L 501.9985, L503.6005, L505.5000, M600.5000, L501.5200 ####[facility] [address] [place], [address] LDL calc ser/plasOrdered By: Conrado Fraser on 06-26-2024 Cholesterol in LDL [Mass/Vol] 24 mg/dL Normal [facility] Comment on above: Barsgxomyk=921-714 m g/dL & Higher Fjqi=578 mg/dL or greater Result Comment: Bord ikyrxp=447-558 mg/dL Higher Yidt=997 mg/dL or greater Performed By: #### L 100.0100, L501.9520, L501.2300, L500.4050, L500.4100 ####[facility] [address] [place], [address] Laboratory - Chemistry and C hemistry - challengeOrdered By: Carlos Yanes on 06-26-2024 AST [Catalytic activity/Vol] 49 U/L High <[address] [facility] Lactic Acidon 06-26-2024 Lactate [Moles/Vol] 3.1 mmol/L Invalid Interpretation Code 0.0-2.[address] [facility] Comment on above: Result Comment: Crit ical Result(s) Called at 0745: by: ESTEFANY GOLDMAN. ??Results read back by same. Performed By: #### L 503.6005 ####[facility] [address] [place], [address] Lactate [Moles/Vol] 4.7 mmol/L Invalid Interpretation Code 0.0-2.[address] [facility] Comment on above: Order Comment: Y Result Comment: Crit ical Result(s) Called at: 06/26/2024-02:50 by: Khushi to Ann-Marie Mckeon.??Results read back by same. Performed By: #### L 501.9985, L503.6005, L505.5000, M600.5000, L501.5200 ####[facility] [address] [place], [address] Lactic acid measurementOrder ed By: Conrado Fraser on 06-26-2024 Lactate [Moles/Vol] 3.1 mmol/L High 0.0-2.0 [facility] Comment on above: Critical Result(s) C alled at 0745: by: ESTEFANY WHITTEN TO [facility]. Results read back by same. Lipid Profileon 06-26-2024 CHOL:HDL 2.[address] [facility] Comment on above: Performed By: #### L 100.0100, L501.9520, L501.2300, L500.4050, L500.4100 ####[facility] [address] [place], [address] Cholesterol in VLDL [Mass/Vol] 18 mg/dL Normal 5-[address] [facility] Comment on above: Performed By: #### L 100.0100, L501.9520, L501.2300, L500.4050, L500.4100 ####[facility] [address] [place], [address] Liver Profileon 06-26-2024 Albumin [Mass/Vol] 2.0 g/dL Low 3.4-4.8 [facility] Comment on above: Performed By: #### L 500.3400 ####[facility] [address] [place], [address] ALK PHOS 99 U/L Normal 40-[address] [facility] Comment on above: Performed By: #### L 500.3400 ####[facility] [address] [place], [address] ALT [Catalytic activity/Vol] 27 U/L Normal <=[address] [facility] Comment on above: Performed By: #### L 500.3400 ####[facility] [address] [place], [address] AST [Catalytic activity/Vol] 49 U/L High <=[address] [facility] Comment on above: Performed By: #### L 500.3400 ####[facility] [address] [place], [address] Bilirubin [Mass/Vol] 0.42 mg/dL Normal 0.00-1.30 [facility] Comment on above: Performed By: #### L 500.3400 ####[facility] [address] [place], [address] Bilirubin.direct [Mass/Vol] 0.23 mg/dL Normal 0.00-0.[address] [facility] Comment on above: Performed By: #### L 500.3400 ####[facility] [address] [place], [address] Globulin (S) [Mass/Vol] 2.2 g/dL Normal 2.2-4.[address] [facility] Comment on above: Performed By: #### L 500.3400 ####[facility] [address] [place], [address] T PROT 4.2 g/dL Low 5.9-8.[address] [facility] Comment on above: Performed By: #### L 500.3400 ####[facility] [address] [place], [address] MR/CON.PCM.GIon 06-26-2024 MR/CON.PCM.GI Normal [facility] Magnesiumon 06-26-2024 Magnesium [Mass/Vol] 1.8 mg/dL Normal 1.5-2.2 [facility] Comment on above: Performed By: #### L 501.9985, L503.6005, L505.5000, M600.5000, L501.5200 ####[facility] [address] [place], [address] No Panel InformationOrdered By: Melonie De La Rosa on 06-26-2024 Body Fluid Comment 2 SEE COMMENT [facility] Comment on above: .INTERPRETATION OF R ESULTS: Differentiation of transudate and exudate fluid: TRANSUDATE EXUDATE Color- Clear,straw colored Clear,turbid,bloody,purulent RBCs- Usually none to few Often present in high numbers WBCs- Usually none to few Often present in high numbers DIFF Few lymphocytes or Lymphocytes, neutrophils, andCount- mesothelial cells. polymorphonuclear cells . Body Fluid RBC 35 /mm3 [facility] 35 /mm3 [facility] SEE COMMENT [facility] No Panel InformationOrdered By: Carlos Yanes on 06-26-2024 49 U/L High <[address] [facility] Paracentesis with USon 06-26 Paracentesis with US Normal [facility] Pathologist interpretation o f Body fluid testsOrdered By: Melonie De La Rosa on 06-26-2024 Pathologist interpretation (Body fld) [Interp] May follow [facility] Pathologist interpretation (Body fld) [Interp] Reviewed [facility] Phosphoruson 06-26-2024 Phosphate [Mass/Vol] 2.3 mg/dL Low 2.7-4.5 [facility] Comment on above: Performed By: #### L 100.0100, L501.9520, L501.2300, L500.4050, L500.4100 ####[facility] [address] [place], [place], [address] Screening total cholesterol/ high density lipoprotein (HDL) cholesterol ratioOrdered By: Conrado Fraser on 06-26-2024 Cholesterol.total/Livia sterol in HDL [Mass ratio] 2.29 {ratio} [facility] Serum globulin measurementOr dered By: Carlos Yanes on 06-26-2024 Globulin (S) [Mass/Vol] 2.2 g/dL 2.2-4.2 [facility] Serum or plasma alanine padilla otransferase (ALT) measurementOrdered By: Carlos Yanes on 06-26-2024 ALT [Catalytic activity/Vol] 27 U/L <[address] [facility] Serum or plasma albumin luciana urement (mass/volume)Ordered By: Carlos Yanes on 06-26-2024 Albumin [Mass/Vol] 2.0 g/dL Low 3.4-4.8 [facility] Serum or plasma albumin/glob ulin mass ratioOrdered By: Conrado Fraser on 06-26-2024 Albumin/Globulin [Mass ratio] 1.0 {ratio} 0.9-2.[address] [facility] Serum or plasma alkaline nolan sphatase measurementOrdered By: Carlos Yanes on 06-26-2024 ALP [Catalytic activity/Vol] 99 U/L 40-[address] [facility] Serum or plasma cholesterol in HDL measurement (mass/volume)Ordered By: Conrado Fraser on 06-26-2024 Cholesterol in HDL [Mass/Vol] 32 mg/dL Low [facility] Comment on above: National Cholesterol Education Program [...] #### L 100.0100, L501.9520, L501.2300, L500.4050, L500.4100 ####[facility] [address] [place], [place], [address] Serum or plasma cholesterol measurement (mass/volume)Ordered By: Conrado Fraser on 06-26-2024 Cholesterol [Mass/Vol] 74 mg/dL Normal <=200 [facility] Comment on above: Cholesterol level, D esirable <200 mg/dLBorderline high cholesterol 200-239 mg/dLHigh cholesterol >=240 mg/dLRecommendations of the NCEP Adult Treatment Panel for the following risk-cutoff thresholds for the [place] population. Result Comment: Chol esterol level, Desirable <200 mg/dLBorderline high cholesterol 200-239 mg/dLHigh cholesterol >=240 mg/dLRecommendations of the NCEP Adult Treatment Panel for thefollowing risk-cutoff thresholds for the [place] American[place]ulation. Performed By: #### L 100.0100, L501.9520, L501.2300, L500.4050, L500.4100 ####[facility] [address] [place], [address] Specimen source identificati on of body fluidOrdered By: Melonie De La Rosa on 06-26-2024 Specimen source Nom (Body fld) PARACENTESIS [facility] Stool Lactoferrin/WBCon 06-08 WBCST Is the patient receiving laxatives? N Normal Reference Range = Negative Fecal WBC Lactoferrin Negative: No Fecal WBC Lactoferrin present Normal [facility] Comment on above: Performed By: #### M 100.6796, M100.637, M100.0605 ####[facility] [address] [place] [place], [address] TSH DL <= 0.005 mIU/L QnOrde red By: Conrado Fraser on 06-26-2024 TSH Qn 1.740 uIU/mL 0.300-4.[address] [facility] Thyroid Stim Hormone (TSH)on 06-26-2024 TSH 1.740 uIU/mL Normal 0.300-4.[address] [facility] Comment on above: Performed By: #### L 100.0100, L501.9520, L501.2300, L500.4050, L500.4100 ####[facility] [address] [place], [place], [id number] Total proteinOrdered By: Carlos Yanes on 06-26-2024 Protein [Mass/Vol] 4.2 g/dL Low 5.9-8.4 [facility] Triglycerides measurementOrd ered By: Conrado Fraser on 06-26-2024 Triglyceride [Mass/Vol] 89 mg/dL Normal [facility] Comment on above: The drugs N-Acetylcy steine and Metamizole may falsely depress this assay. Normal range: <150 mg/dLBorderline High: 150-199 mg/dLHigh: 200-499 mg/dLVery High: >500 mg/dL Result Comment: The drugs N-Acetylcysteine and Metamizole may falselydepress this assay.Normal range: <150 mg/dLBorderline High: 150-199 mg/dLHigh: 200-499 mg/dLVery High: >500 mg/dL Performed By: #### L 100.0100, L501.9520, L501.2300, L500.4050, L500.4100 ####[facility] [address] [place], [address] Urine Drug Screen (VISTA)on 06-26-2024 AMPHETAMINES Negative Normal <1000 ng/mL [facility] Comment on above: Performed By: #### L 501.9985, L503.6005, L505.5000, M600.5000, L501.5200 ####[facility] [address] [place], [address] BARBITIURATES Negative Normal < 200 ng/mL [facility] Comment on above: Performed By: #### L 501.9985, L503.6005, L505.5000, M600.5000, L501.5200 ####[facility] [address] [place], [address] BENZODIAZIPINE Negative Normal < 200 ng/mL [facility] Comment on above: Performed By: #### L 501.9985, L503.6005, L505.5000, M600.5000, L501.5200 ####[facility] [address] [place], [address] BUP Ur Drug Scr Negative Normal < 200 ng/mL [facility] Comment on above: Performed By: #### L 501.9985, L503.6005, L505.5000, M600.5000, L501.5200 ####[facility] [address] [place], [address] COCAINE Negative Normal < 300 ng/mL [facility] Comment on above: Performed By: #### L 501.9985, L503.6005, L505.5000, M600.5000, L501.5200 ####[facility] [address] [place], [phone] Fentanyl Negative Normal [facility] Comment on above: Performed By: #### L 501.9985, L503.6005, L505.5000, M600.5000, L501.5200 ####[facility] [address] [place], [phone] METHADONE Negative Normal < 300 ng/mL [facility] Comment on above: Performed By: #### L 501.9985, L503.6005, L505.5000, M600.5000, L501.5200 ####[facility] [address] [place], [place], [phone] OPIATES Negative Normal < 300 ng/mL [facility] Comment on above: Performed By: #### L 501.9985, L503.6005, L505.5000, M600.5000, L501.5200 ####[facility] [address] [place], [phone] OXYCODONE Negative Normal < 100 ng/mL [facility] Comment on above: Performed By: #### L 501.9985, L503.6005, L505.5000, M600.5000, L501.5200 ####[facility] [address] [place], [place], [phone] PCP Negative Normal < 25 ng/mL [facility] Comment on above: Performed By: #### L 501.9985, L503.6005, L505.5000, M600.5000, L501.5200 ####[facility] [address] [place], [address] THC Negative Normal < 50 ng/mL [facility] Comment on above: Performed By: #### L 501.9985, L503.6005, L505.5000, M600.5000, L501.5200 ####[facility] [address] [place], [place], [address] 12 Lead EKGon 06-25-2024 12 Lead EKG Normal [facility] Abdomen/Pelvis W IV Cont ONL Yon 06-25-2024 Abdomen/Pelvis W IV Cont ONLY Normal [facility] Absolute lymphocyte countOrd ered By: Rolan Romero on 06-25-2024 Lymphocytes Auto (Unsp spec) [#/Vol] 1.05 10*3/uL 0.83-4.[address] [facility] Absolute neutrophil countOrd ered By: Rolan Romero on 06-25-2024 Neutrophils (Bld) [#/Vol] 3.1 10*3/uL 2.0-7.[address] [facility] Alcohol, Blood (Medical)-Ser umon 06-25-2024 SERUM ETOH < 10.1 Normal <=10.[address] [facility] Comment on above: Result Comment: This test is for medical purposes only. The legaldefinition of intoxication varies according to local law. Performed By: #### L 501.9100 ####[facility] [address] [place], [place], [address] Amphetamine detection with 1 000 ng/mL as cutoffOrdered By: Conrado Fraser on 06-25-2024 Amphetamines Screen method >1000 ng/mL Ql (U) Negative < 200 ng/mL [facility] Anion gap in Serum or Plasma Ordered By: Rolan Romero on 06-25-2024 Anion gap [Moles/Vol] 16 mmol/L High 5-15 [facility] Automated lymphocyte count a s percentage of total leukocytesOrdered By: Rloan Romero on 06-25-2024 Lymphocytes/100 WBC Auto (Unsp spec) 22.1 % 19-[address] [facility] BUN/creatinine ratioOrdered By: Rolan Romero on 06-25-2024 Urea nitrogen/Creatinine [Mass ratio] 6.5 mg/mg Low 10-[address] [facility] Basophil percentageOrdered B y: Rolan Romero on 06-25-2024 Basophils/100 WBC (Bld) 0.6 % 0-1 [facility] Bedside Glucoseon 06-25-2024 FINGERSTICK GLU 277 mg/dL High 74-[address] [facility] Comment on above: Result Comment: DAYANARA GEMENT OF PATIENT CARE PER NURSING PROTOCOL Performed By: #### L 501.080 ####[facility] [address] [place], [address] FINGERSTICK GLU 348 mg/dL High 74-[address] [facility] Comment on above: Result Comment: DAYANARA GEMENT OF PATIENT CARE PER NURSING PROTOCOL Performed By: #### L 501.080 ####[facility] [address] [place], [address] Beta-Hydroxbytyrateon 2024 BETA-HYDROXYBUT 0.1 mmol/L Normal 0.0-0.[address] [facility] Comment on above: Performed By: #### L 501.5600, L501.6901, L501.5200 ####[facility] [address] [place], [address] Beta-hydroxybutyrateOrdered By: Rolan Romero on 06-25-2024 Beta hydroxybutyrate [Mass/Vol] 0.1 mmol/L 0.0-0.[address] [facility] Bilirubin Test strip Ql (U)O rdered By: Rolan Romero on 06-25-2024 Bilirubin Ql (U) Negative Negative [facility] Bilirubin, totalOrdered By: Rolan Romero on 06-25-2024 Bilirubin [Mass/Vol] 0.46 mg/dL 0.00-1.30 [facility] CBC W/Diff, Automatedon 06-08 Absolute Lymph 1.05 X10 3/uL Normal 0.83-4.[address] [facility] Comment on above: Performed By: #### L 100.0100 ####[facility] [address] [place], [address] Absolute Neut 3.1 X10 3/uL Normal 2.0-7.[address] [facility] Comment on above: Performed By: #### L 100.0100 ####[facility] [address] [place], [address] Basophils/100 WBC (Bld) 0.6 % Normal 0-1 [facility] Comment on above: Performed By: #### L 100.0100 ####[facility] [address] [place], [address] Eosinophils/100 WBC (Bld) 0.2 % Normal 0-[address] [facility] Comment on above: Performed By: #### L 100.0100 ####[facility] [address] [place], [address] Erythrocyte distribution width (RBC) [Ratio] 16.2 % High 11.6-14.[address] [facility] Comment on above: Performed By: #### L 100.0100 ####[facility] [address] [place], [address] Hematocrit (Bld) [Volume fraction] 29.8 % Low 40-[address] [facility] Comment on above: Performed By: #### L 100.0100 ####[facility] [address] [place], [address] Hemoglobin (Bld) [Mass/Vol] 10.1 g/dL Low 13.0-16.[address] [facility] Comment on above: Performed By: #### L 100.0100 ####[facility] [address] [place], [address] IG% 0.200 Normal 0.0-0.[address] [facility] Comment on above: Result Comment: IG% - Immature Granulocytes (promyelocytes, myelocytes andmetamyelocytes) > 1% indicates that a LEFT SHIFT is Present. Performed By: #### L 100.0100 ####[facility] [address] [place], [address] Lymphocytes/100 WBC (Bld) 22.1 % Normal 19-[address] [facility] Comment on above: Performed By: #### L 100.0100 ####[facility] [address] [place], [address] MCH (RBC) [Entitic mass] 36.1 pg High 27.0-32.[address] [facility] Comment on above: Performed By: #### L 100.0100 ####[facility] [address] [place], [address] MCHC (RBC) [Mass/Vol] 33.9 g/dL Normal 32-36 [facility] Comment on above: Performed By: #### L 100.0100 ####[facility] [address] [place], [address] MCV (RBC) [Entitic vol] 106.4 fL High 80-94 [facility] Comment on above: Performed By: #### L 100.0100 ####[facility] [address] [place], [address] Monocytes/100 WBC (Bld) 11.6 % High 0-10 [facility] Comment on above: Performed By: #### L 100.0100 ####[facility] [address] [place], [address] Neutrophils/100 WBC (Bld) 65.3 % Normal 47-[address] [facility] Comment on above: Performed By: #### L 100.0100 ####[facility] [address] [place], [address] Nucleated RBC (Bld) [#/Vol] 0 10*3/uL Normal 0-[address] [facility] Comment on above: Performed By: #### L 100.0100 ####[facility] [address] [place], [address] Platelet mean volume (Bld) [Entitic vol] 11.8 fL Normal 6.2-12.[address] [facility] Comment on above: Performed By: #### L 100.0100 ####[facility] [address] [place], [address] Platelets (Bld) [#/Vol] 124 10*3/uL Low 150-[address] [facility] Comment on above: Performed By: #### L 100.0100 ####[facility] [address] [place], [address] RBC (Bld) [#/Vol] 2.80 10*6/uL Low 4.6-6.2 [facility] Comment on above: Performed By: #### L 100.0100 ####[facility] [address] [place], [address] RDW SD 63.9 fl High 35.1-43.[address] [facility] Comment on above: Performed By: #### L 100.0100 ####[facility] [address] [place], [address] WBC (Bld) [#/Vol] 4.8 10*3/uL Normal 4.4-11.0 [facility] Comment on above: Performed By: #### L 100.0100 ####[facility] [address] [place], [address] Absolute Neut Normal 2.0-7.[address] [facility] Comment on above: Result Comment: nigel ballard, spoke with ayden Performed By: #### L 100.0100, L500.4050, L501.2450, L503.6005 ####[facility] [address] [place], [address] HCT Normal 40-[address] [facility] Comment on above: Result Comment: clot nellie, spoke with ayden Performed By: #### L 100.0100, L500.4050, L501.2450, L503.6005 ####[facility] [address] [place], [address] HGB Normal 13.0-16.[address] [facility] Comment on above: Result Comment: clot nellie, spoke with ayden Performed By: #### L 100.0100, L500.4050, L501.2450, L503.6005 ####[facility] [address] [place], [address] MCH Normal 27.0-32.[address] [facility] Comment on above: Result Comment: clot nellie, spoke with ayden Performed By: #### L 100.0100, L500.4050, L501.2450, L503.6005 ####[facility] [address] [place], [address] MCHC Normal 32-[address] [facility] Comment on above: Result Comment: clot nellie, spoke with ayden Performed By: #### L 100.0100, L500.4050, L501.2450, L503.6005 ####[facility] [address] [place], [address] MCV Normal 80-[address] [facility] Comment on above: Result Comment: clot nellie, spoke with ayden Performed By: #### L 100.0100, L500.4050, L501.2450, L503.6005 ####[facility] [address] [place], [address] NEUT% Normal 47-[address] [facility] Comment on above: Result Comment: clot nellie, spoke with ayden Performed By: #### L 100.0100, L500.4050, L501.2450, L503.6005 ####[facility] [address] [place], [address] PLT Normal 150-[address] [facility] Comment on above: Result Comment: nigel ballard, spoke with ayden Performed By: #### L 100.0100, L500.4050, L501.2450, L503.6005 ####[facility] [address] [place], [address] RBC Normal 4.6-6.[address] [facility] Comment on above: Result Comment: clot nellie, spoke with ayden Performed By: #### L 100.0100, L500.4050, L501.2450, L503.6005 ####[facility] [address] [place], [address] RDW CV Normal 11.6-14.[address] [facility] Comment on above: Result Comment: clot nellie, spoke with ayden Performed By: #### L 100.0100, L500.4050, L501.2450, L503.6005 ####[facility] [address] [place], [address] RDW SD Normal 35.1-43.[address] [facility] Comment on above: Result Comment: clot nellie, spoke with ayden Performed By: #### L 100.0100, L500.4050, L501.2450, L503.6005 ####[facility] [address] [place], [address] WBC Normal 4.4-11.[address] [facility] Comment on above: Result Comment: clot nellie, spoke with ayden Performed By: #### L 100.0100, L500.4050, L501.2450, L503.6005 ####[facility] [address] [place], [address] CO2 (BldV) [Moles/Vol]Ordere d By: Rolan Romero on 06-25-2024 CO2 [Moles/Vol] 30 mmol/L 23-[address] [facility] Carbon dioxide, total [Moles /volume] in Central venous bloodOrdered By: Rolan Romero on 06-25-2024 CO2 [Moles/Vol] 24.2 mmol/L 21.0-32.[address] [facility] Chloride assayOrdered By: Tray Romero on 06-25-2024 Chloride [Moles/Vol] 95 mmol/L Low 98-108 [facility] Clostridium difficile detect ion by polymerase chain reactionOrdered By: Conrado Fraser on 06-25-2024 C. difficile DNA GENEVA+probe Ql (Unsp spec) [facility] Comprehensive Metabolic Prof ilon 06-25-2024 Albumin [Mass/Vol] 2.5 g/dL Low 3.4-4.8 [facility] Comment on above: Order Comment: REDRA W. PREVIOUS SPECIMEN REJECTED DUE TOHEMOLYSIS. 06/25/241755 Jamari Aguayo. Performed By: #### L 500.4050, L501.2450 ####[facility] [address] [place], [address] Albumin/Globulin [Mass ratio] 1.0 {ratio} Normal 0.9-2.[address] [facility] Comment on above: Order Comment: REDRA W. PREVIOUS SPECIMEN REJECTED DUE TOHEMOLYSIS. 06/25/241755 Jamari Aguayo. Performed By: #### L 500.4050, L501.2450 ####[facility] [address] [place], [address] ALK PHOS 125 U/L Normal 40-[address] [facility] Comment on above: Order Comment: REDRA W. PREVIOUS SPECIMEN REJECTED DUE TOHEMOLYSIS. 06/25/241755 Jamari Aguayo. Performed By: #### L 500.4050, L501.2450 ####[facility] [address] [place], [address] ALT [Catalytic activity/Vol] 32 U/L Normal <=[address] [facility] Comment on above: Order Comment: REDRA W. PREVIOUS SPECIMEN REJECTED DUE TOHEMOLYSIS. 06/25/241755 Jamari Aguayo. Performed By: #### L 500.4050, L501.2450 ####[facility] [address] [place], [address] AST [Catalytic activity/Vol] 62 U/L High <=[address] [facility] Comment on above: Order Comment: REDRA W. PREVIOUS SPECIMEN REJECTED DUE TOHEMOLYSIS. 06/25/241755 Jamari Aguayo. Performed By: #### L 500.4050, L501.2450 ####[facility] [address] [place], [address] Bilirubin [Mass/Vol] 0.46 mg/dL Normal 0.00-1.30 [facility] Comment on above: Order Comment: REDRA W. PREVIOUS SPECIMEN REJECTED DUE TOHEMOLYSIS. 06/25/241755 Jamari Aguayo. Performed By: #### L 500.4050, L501.2450 ####[facility] [address] [place], [address] BUN/CRE 6.5 RATIO Low 10-[address] [facility] Comment on above: Order Comment: REDRA W. PREVIOUS SPECIMEN REJECTED DUE TOHEMOLYSIS. 06/25/241755 Jamari Aguayo. Performed By: #### L 500.4050, L501.2450 ####[facility] [address] [place], [address] Calcium [Mass/Vol] 7.7 mg/dL Normal 7.6-11.0 [facility] Comment on above: Order Comment: REDRA W. PREVIOUS SPECIMEN REJECTED DUE TOHEMOLYSIS. 06/25/241755 Jamari Aguayo. Performed By: #### L 500.4050, L501.2450 ####[facility] [address] [place], [address] Chloride [Moles/Vol] 95 mmol/L Low 98-108 [facility] Comment on above: Order Comment: REDRA W. PREVIOUS SPECIMEN REJECTED DUE TOHEMOLYSIS. 06/25/241755 Jamari Aguayo. Performed By: #### L 500.4050, L501.2450 ####[facility] [address] [place], [address] CO2 [Moles/Vol] 24.2 mmol/L Normal 21.0-32.[address] [facility] Comment on above: Order Comment: REDRA W. PREVIOUS SPECIMEN REJECTED DUE TOHEMOLYSIS. 06/25/241755 Jamari Augayo. Performed By: #### L 500.4050, L501.2450 ####[facility] [address] [place], [address] Creatinine [Mass/Vol] 1.27 mg/dL High 0.70-1.20 [facility] Comment on above: Order Comment: REDRA W. PREVIOUS SPECIMEN REJECTED DUE TOHEMOLYSIS. 06/25/241755 Jamari Aguayo. Performed By: #### L 500.4050, L501.2450 ####[facility] [address] [place], [address] ECRCL 65.06 ml/min Normal 50-[address] [facility] Comment on above: Order Comment: REDRA W. PREVIOUS SPECIMEN REJECTED DUE TOHEMOLYSIS. 06/25/241755 Jamari Aguayo. Performed By: #### L 500.4050, L501.2450 ####[facility] [address] [place], [address] GAP 16 High 5-[address] [facility] Comment on above: Order Comment: REDRA W. PREVIOUS SPECIMEN REJECTED DUE TOHEMOLYSIS. 06/25/241755 Jamari Aguayo. Performed By: #### L 500.4050, L501.2450 ####[facility] [address] [place], [address] GFR/1.73 sq M.predicted among non-blacks MDRD (S/P/Bld) [Vol rate/Area] 64 mL/min/{1.73_m2} Normal >[address] [facility] Comment on above: Order Comment: REDRA W. PREVIOUS SPECIMEN REJECTED DUE TOHEMOLYSIS. 06/25/241755 Jamari Callahan Olivier. Result Comment: mL/m in/1.73m2 CKD-EPI Creatinine Equation (2020) Performed By: #### L 500.4050, L501.2450 ####[facility] [address] [place], [address] Globulin (S) [Mass/Vol] 2.5 g/dL Normal 2.2-4.2 [facility] Comment on above: Order Comment: REDRA W. PREVIOUS SPECIMEN REJECTED DUE TOHEMOLYSIS. 06/25/241755 Jamari Callahan Olivier. Performed By: #### L 500.4050, L501.2450 ####[facility] [address] [place], [address] Glucose [Mass/Vol] 398 mg/dL High 70-99 [facility] Comment on above: Order Comment: REDRA W. PREVIOUS SPECIMEN REJECTED DUE TOHEMOLYSIS. 06/25/241755 Jamari Callahan Olivier. Performed By: #### L 500.4050, L501.2450 ####[facility] [address] [place], [address] Potassium [Moles/Vol] 2.2 mmol/L Invalid Interpretation Code 3.3-5.[address] [facility] Comment on above: Order Comment: REDRA W. PREVIOUS SPECIMEN REJECTED DUE TOHEMOLYSIS. 06/25/241755 Jamari Callahan Olivier. Result Comment: Crit ical Result(s) Called at: 06/25/2024-18:50 by: Khushi to Ann-Marie Mondragon.??Results read back by same. Performed By: #### L 500.4050, L501.2450 ####[facility] [address] [place], [address] Sodium [Moles/Vol] 136 mmol/L Normal 133-145 [facility] Comment on above: Order Comment: REDRA W. PREVIOUS SPECIMEN REJECTED DUE TOHEMOLYSIS. 06/25/241755 Jamari Aguayo. Performed By: #### L 500.4050, L501.2450 ####[facility] [address] [place], [address] T PROT 5.0 g/dL Low 5.9-8.[address] [facility] Comment on above: Order Comment: REDRA W. PREVIOUS SPECIMEN REJECTED DUE TOHEMOLYSIS. 06/25/241755 Jamari Aguayo. Performed By: #### L 500.4050, L501.2450 ####[facility] [address] [place], [address] Urea nitrogen [Mass/Vol] 8 mg/dL Normal 4-[address] [facility] Comment on above: Order Comment: REDRA W. PREVIOUS SPECIMEN REJECTED DUE TOHEMOLYSIS. 06/25/241755 Jamari Aguayo. Performed By: #### L 500.4050, L501.2450 ####[facility] [address] [place], [address] ALB Normal 3.4-4.[address] [facility] Comment on above: Result Comment: This specimen has been REJECTED due to Laboratory criteria:Hemolyzed.KIM (ED) has been notified of need of recollection.06/25/241754 Jamari Callahan White Performed By: #### L 100.0100, L500.4050, L501.2450, L503.6005 ####[facility] [address] [place], [address] ALK PHOS Normal 40-[address] [facility] Comment on above: Result Comment: This specimen has been REJECTED due to Laboratory criteria:Hemolyzed.KIM (ED) has been notified of need of recollection.06/25/241754 Jamari Callahan White Performed By: #### L 100.0100, L500.4050, L501.2450, L503.6005 ####[facility] [address] [place], [address] ALT Normal <=[address] [facility] Comment on above: Result Comment: This specimen has been REJECTED due to Laboratory criteria:Hemolyzed.KIM (ED) has been notified of need of recollection.06/25/241754 Jamari L White Performed By: #### L 100.0100, L500.4050, L501.2450, L503.6005 ####[facility] [address] [place], [address] AST Normal <=[address] [facility] Comment on above: Result Comment: This specimen has been REJECTED due to Laboratory criteria:Hemolyzed.KIM (ED) has been notified of need of recollection.06/25/241754 Jamari L White Performed By: #### L 100.0100, L500.4050, L501.2450, L503.6005 ####[facility] [address] [place], [address] BUN Normal 4-[address] [facility] Comment on above: Result Comment: This specimen has been REJECTED due to Laboratory criteria:Hemolyzed.KIM (ED) has been notified of need of recollection.06/25/241754 Jamari L White Performed By: #### L 100.0100, L500.4050, L501.2450, L503.6005 ####[facility] [address] [place], [address] BUN/CRE Normal 10-[address] [facility] Comment on above: Result Comment: This specimen has been REJECTED due to Laboratory criteria:Hemolyzed.KIM (ED) has been notified of need of recollection.06/25/241754 Jamari L White Performed By: #### L 100.0100, L500.4050, L501.2450, L503.6005 ####[facility] [address] [place], [address] Calcium Normal 7.6-11.[address] [facility] Comment on above: Result Comment: This specimen has been REJECTED due to Laboratory criteria:Hemolyzed.PAIGEILIE (ED) has been notified of need of recollection.06/25/241754 Jamari Callahan White Performed By: #### L 100.0100, L500.4050, L501.2450, L503.6005 ####[facility] [address] [place], [address] CL Normal 98-[address] [facility] Comment on above: Result Comment: This specimen has been REJECTED due to Laboratory criteria:Hemolyzed.LORILIE (ED) has been notified of need of recollection.06/25/241754 Jamari Callahan White Performed By: #### L 100.0100, L500.4050, L501.2450, L503.6005 ####[facility] [address] [place], [address] CO2 Normal 21.0-32.[address] [facility] Comment on above: Result Comment: This specimen has been REJECTED due to Laboratory criteria:Hemolyzed.PAIGEILIE (ED) has been notified of need of recollection.06/25/241754 Jamari Callahan White Performed By: #### L 100.0100, L500.4050, L501.2450, L503.6005 ####[facility] [address] [place], [address] CREAT,SERUM Normal 0.70-1.[address] [facility] Comment on above: Result Comment: This specimen has been REJECTED due to Laboratory criteria:Hemolyzed.LORILIE (ED) has been notified of need of recollection.06/25/241754 Jamari Callahan White Performed By: #### L 100.0100, L500.4050, L501.2450, L503.6005 ####[facility] [address] [place], [address] eGFR Normal >[address] [facility] Comment on above: Result Comment: This specimen has been REJECTED due to Laboratory criteria:Hemolyzed.KIM (ED) has been notified of need of recollection.06/25/241754 Jamari L White Performed By: #### L 100.0100, L500.4050, L501.2450, L503.6005 ####[facility] [address] [place], [address] GAP Normal 5-[address] [facility] Comment on above: Result Comment: This specimen has been REJECTED due to Laboratory criteria:Hemolyzed.KIM (ED) has been notified of need of recollection.06/25/241754 Jamari L White Performed By: #### L 100.0100, L500.4050, L501.2450, L503.6005 ####[facility] [address] [place], [address] GLU Normal 70-[address] [facility] Comment on above: Result Comment: This specimen has been REJECTED due to Laboratory criteria:Hemolyzed.KIM (ED) has been notified of need of recollection.06/25/241754 Jamari L White Performed By: #### L 100.0100, L500.4050, L501.2450, L503.6005 ####[facility] [address] [place], [address] Potassium Normal 3.3-5.[address] [facility] Comment on above: Result Comment: This specimen has been REJECTED due to Laboratory criteria:Hemolyzed.KIM (ED) has been notified of need of recollection.06/25/241754 Jamari L White Performed By: #### L 100.0100, L500.4050, L501.2450, L503.6005 ####[facility] [address] [place], [address] T BILI Normal 0.00-1.[address] [facility] Comment on above: Result Comment: This specimen has been REJECTED due to Laboratory criteria:Hemolyzed.KIM (ED) has been notified of need of recollection.06/25/241754 Jamari Callahan White Performed By: #### L 100.0100, L500.4050, L501.2450, L503.6005 ####[facility] [address] [place], [address] T PROT Normal 5.9-8.[address] [facility] Comment on above: Result Comment: This specimen has been REJECTED due to Laboratory criteria:Hemolyzed.KIM (ED) has been notified of need of recollection.06/25/241754 Jamari Callahan White Performed By: #### L 100.0100, L500.4050, L501.2450, L503.6005 ####[facility] [address] [place], [address] Comprehensive Metabolic Profil Normal 133-[address] [facility] Comment on above: Result Comment: This specimen has been REJECTED due to Laboratory criteria:Hemolyzed.KIM (ED) has been notified of need of recollection.06/25/241754 Jamari L White Performed By: #### L 100.0100, L500.4050, L501.2450, L503.6005 ####[facility] [address] [place], [address] Emergency Department Summary on 06-25-2024 Emergency Department Summary Normal [facility] Eosinophil percentageOrdered By: Rolan Romero on 06-25-2024 Eosinophils/100 WBC (Bld) 0.2 % 0-[address] [facility] Erythrocyte distribution wid th ratioOrdered By: Rolan Romero on 06-25-2024 Erythrocyte distribution width (RBC) [Ratio] 16.2 % High 11.6-14.[address] [facility] Erythrocyte distribution wid th standard deviationOrdered By: Rolan Quinn on 06-25-2024 Erythrocyte distribution width (RBC) [Ratio] 63.9 fl High 35.1-43.[address] [facility] Glomerular filtration rate ( GFR) estimation/1.73 sq m using serum, plasma, or whole bOrdered By: Rolan Romero on 06-25-2024 GFR/1.73 sq M.predicted among non-blacks MDRD (S/P/Bld) [Vol rate/Area] 64 mL/min/{1.73_m2} >[address] [facility] Comment on above: mL/min/1.73m2 CKD-EP I Creatinine Equation (2020) [facility]dered By: Rolan Romero on 06-25-2024 Glucose [Mass/Vol] 277 mg/dL High 74-106 [facility] Comment on above: MANAGEMENT OF PATIEN T CARE PER NURSING PROTOCOL H AND P Exam - Hospitaliston 06-25-2024 H&P Exam - Hospitalist Normal [facility] Hematocrit Auto (Bld) [Volum e fraction]Ordered By: Rolan Romero on 06-25-2024 Hematocrit (Bld) [Volume fraction] 29.8 % Low 40-[address] [facility] Hemoglobin A1c percentageOrd ered By: Conrado Fraser on 06-25-2024 HbA1c (Bld) [Mass fraction] 6.6 % High <5.[address] [facility] Comment on above: Normal < 5.7 % Predi abetic 5.7 - 6.4 % Diabetic >or= 6.5 % Please note range changes. Hemoglobin measurementOrdere d By: Rolan Romero on 06-25-2024 Hemoglobin (Bld) [Mass/Vol] 10.1 g/dL Low 13.0-16.[address] [facility] Immature granulocytes/100 WB C Auto (Bld)Ordered By: Rolan Romero on 06-25-2024 Immature granulocytes/100 WBC (Bld) 0.200 % 0.0-0.[address] [facility] Comment on above: IG% - Immature Granu locytes (promyelocytes, myelocytes and metamyelocytes) > 1% indicates that a LEFT SHIFT is Present. Ketones Test strip Ql (U)Ord ered By: Rolan Romero on 06-25-2024 Ketones Ql (U) Negative Negative [facility] Laboratory - Chemistry and C hemistry - challengeOrdered By: Rolan Romero on 06-25-2024 AST [Catalytic activity/Vol] 62 U/L High <[address] [facility] Lactic Acidon 06-25-2024 Lactate [Moles/Vol] 4.8 mmol/L Invalid Interpretation Code 0.0-2.[address] [facility] Comment on above: Result Comment: Crit ical Result(s) Called at: 2317by: MATTHEW HUBER TO ELIS VALENCIA.??Results read back bysame. Performed By: #### L 503.6005 ####[facility] [address] [place], [address] Lactate [Moles/Vol] 6.6 mmol/L Invalid Interpretation Code 0.0-2.[address] [facility] Comment on above: Order Comment: Y Result Comment: Crit ical Result(s) Called at: 06/25/2024-18:50 by: Khushi to Ann-Marie Mondragon.??Results read back by same. Performed By: #### L 100.0100, L500.4050, L501.2450, L503.6005 ####[facility] [address] [place], [address] Lactic acid measurementOrder ed By: Rolan Romero on 06-25-2024 Lactate [Moles/Vol] 4.8 mmol/L High 0.0-2.0 [facility] Comment on above: Critical Result(s) C alled at: 2317by: MATTHEW HUBER TO ELIS VALENCIA. Results read back by same. Lipaseon 06-25-2024 Lipase [Catalytic activity/Vol] 6 U/L Low 13-[address] [facility] Comment on above: Order Comment: OLIVIA Dobbs PREVIOUS SPECIMEN REJECTED DUE TOHEMOLYSIS. 06/25/241755 Jamari Aguayo. Result Comment: Mary Anne zamorano note:LIPASE revised reference range effective 22.New Lipase methodology. Expected to produce lower valuesthan the previous assay method.NEW Reference Range: 13 - 75 U/L Performed By: #### L 500.4050, L501.2450 ####[facility] [address] [place], [place], [address] Lipase [Catalytic activity/Vol] 11 U/L Low 13-[address] [facility] Comment on above: Order Comment: This specimen [...] By: #### L 100.0100, L500.4050, L501.2450, L503.6005 ####[facility] [address] [place], [place], [address] Lipase measurementOrdered By : Rolan Romero on 06-25-2024 Lipase [Catalytic activity/Vol] 6 U/L Low 13-[address] [facility] Comment on above: Please note:LIPASE r evised reference range effective 22. New Lipase methodology. Expected to produce lower values than the previous assay method. NEW Reference Range: 13 - 75 U/L MCV (mean corpuscular volume ) determinationOrdered By: Rolan Romero on 06-25-2024 MCV (RBC) [Entitic vol] 106.4 fL High 80-94 [facility] Magnesiumon 06-25-2024 Magnesium [Mass/Vol] 1.8 mg/dL Normal 1.5-2.2 [facility] Comment on above: Performed By: #### L 501.5600, L501.6901, L501.5200 ####[facility] [address] [place], [place], [address] Magnesium measurement (mass/ volume)Ordered By: Rolan Romero on 06-25-2024 Magnesium (Unsp spec) [Mass/Vol] 1.8 mg/dL 1.5-2.[address] [facility] Mean corpuscular hemoglobin (MCH) determinationOrdered By: Rolan Romero on 06-25-2024 MCH (RBC) [Entitic mass] 36.1 pg High 27.0-32.[address] [facility] Mean corpuscular hemoglobin concentration (MCHC) determinationOrdered By: Rolan Romero on 06-25-2024 MCHC (RBC) [Mass/Vol] 33.9 g/dL 32-36 [facility] Mean platelet volume determi nationOrdered By: Rolan Romero on 06-25-2024 Platelet mean volume (Bld) [Entitic vol] 11.8 fL 6.2-12.[address] [facility] Microscopic analysis of urin e for red blood cells (RBC)Ordered By: Rolan Romero on 06-25-2024 Microscopic analysis of urine for red blood cells (RBC) 0 SEEN /hpf 0-[address] [facility] Monocyte percentageOrdered B y: Rolan Romero on 06-25-2024 Monocytes/100 WBC (Bld) 11.6 % High 0-[address] [facility] Mucus LM Ql (Urine sed)Order ed By: Rolan Romero on 06-25-2024 Mucus Ql (Urine sed) 0 SEEN /hpf [facility] Neutrophil percentageOrdered By: Rolan Romero on 06-25-2024 Neutrophils/100 WBC (Bld) 65.3 % 47-[address] [facility] Nitrite Test strip Ql (U)Ord ered By: Rolan Romero on 06-25-2024 Nitrite Ql (U) Negative Negative [facility] No Panel InformationOrdered By: Rolan Romero on 06-25-2024 Blood Gas Sample Site Not entered [facility] Blood Gas Specimen Type ROSA [facility] Oxygen Delivery Device Room Air [facility] ROSA [facility] Not entered [facility] Room Air [facility] No Panel InformationOrdered By: Conrado Fraser on 06-25-2024 Urine Buprenorphine Qualitative Negative < 200 ng/mL [facility] Urine Oxycodone Screen Negative < 100 ng/mL [facility] Negative < 200 ng/mL [facility] Nucleated red blood cell per centageOrdered By: Rolan Romero on 06-25-2024 Nucleated RBC/100 WBC (Bld) [Ratio] 0 % 0-[address] [facility] Platelet countOrdered By: Tray Romero on 06-25-2024 Platelets (Bld) [#/Vol] 124 10*3/uL Low 150-[address] [facility] Potassiumon 06-25-2024 Potassium [Moles/Vol] 2.1 mmol/L Invalid Interpretation Code 3.3-5.[address] [facility] Comment on above: Result Comment: Crit ical Result(s) Called at: 06/25/2024-21:41 by: Khushi VASQUEZ.??Results read back by same. Performed By: #### L 501.5600, L501.6901, L501.5200 ####[facility] [address] [place], [address] Potassium measurement (mass/ volume)Ordered By: Rolan Romero on 06-25-2024 Potassium (Unsp spec) [Mass/Vol] 2.1 mmol/L Low 3.3-5.[address] [facility] Comment on above: Critical Result(s) C alled at: 06/25/2024-21:41 by: Jamari Aguayo to WILFREDO VASQUEZ. Results read back by same. Protein Test strip Ql (U)Ord ered By: Rolan Romero on 06-25-2024 Protein Ql (U) 15 mg/dl High Negative [facility] Quantitative urine opiates m easurementOrdered By: Conrado Fraser on 06-25-2024 Opiates Ql (U) Negative < 300 ng/mL [facility] RBC Auto (Bld) [#/Vol]Ordere d By: Rolan Romero on 06-25-2024 RBC (Bld) [#/Vol] 2.80 10*6/uL Low 4.6-6.2 [facility] Screening urine fentanyl mine surementOrdered By: Conrado Fraser on 06-25-2024 fentaNYL Screen Ql (U) Negative [facility] Serum creatinine measurement (mass/volume)Ordered By: Rolan Romero on 06-25-2024 Creatinine [Mass/Vol] 1.27 mg/dL High 0.70-1.20 [facility] Serum globulin measurementOr dered By: Rolan Romero on 06-25-2024 Globulin (S) [Mass/Vol] 2.5 g/dL 2.2-4.2 [facility] Serum glucose measurement (m ass/volume)Ordered By: Rolan Romero on 06-25-2024 Glucose [Mass/Vol] 398 mg/dL High 70-99 [facility] Serum or plasma alanine padilla otransferase (ALT) measurementOrdered By: Rolan Romero on 06-25-2024 ALT [Catalytic activity/Vol] 32 U/L <[address] [facility] Serum or plasma albumin luciana urement (mass/volume)Ordered By: Rolan Quinn on 06-25-2024 Albumin [Mass/Vol] 2.5 g/dL Low 3.4-4.8 [facility] Serum or plasma albumin/glob ulin mass ratioOrdered By: Rolan Romero on 06-25-2024 Albumin/Globulin [Mass ratio] 1.0 {ratio} 0.9-2.[address] [facility] Serum or plasma alkaline nolan sphatase measurementOrdered By: Rolan Romero on 06-25-2024 ALP [Catalytic activity/Vol] 125 U/L 40-[address] [facility] Serum or plasma calcium luciana urement (mass/volume)Ordered By: Rolan Quinn on 06-25-2024 Calcium [Mass/Vol] 7.7 mg/dL 7.6-11.0 [facility] Serum or plasma ethanol luciana urement (mass/volume)Ordered By: Rolan Quinn on 06-25-2024 Ethanol [Mass/Vol] mg/dL <10.1 [facility] Comment on above: This test is for med ical purposes only. The legal definition of intoxication varies according to local law. Serum or plasma urea nitroge n measurement (mass/volume)Ordered By: Rolan Romero on 06-25-2024 Urea nitrogen [Mass/Vol] 8 mg/dL 4-[address] [facility] Sodium levelOrdered By: Praneeth Romero on 06-25-2024 Sodium [Moles/Vol] 136 mmol/L 133-145 [facility] Squamous epithelial cells de tection in urine sediment by light microscopyOrdered By: Rolan Romero on 06-25-2024 Epithelial cells.squamous LM Ql (Urine sed) 0 SEEN /hpf 0-[address] [facility] Stool lactoferrin detection by immunoassayOrdered By: Conrado Fraser on 06-25-2024 Lactoferrin IA Ql (Stl) [facility] Total proteinOrdered By: Dom Romero on 06-25-2024 Protein [Mass/Vol] 5.0 g/dL Low 5.9-8.4 [facility] Urinalysis, Completeon 06-25 BACTERIA 0 SEEN Normal None Seen [facility] Comment on above: Order Comment: CLEAN CATCH Performed By: #### L 400.0001 ####[facility] [address] [place], [address] EPI,SQUAMOUS 0 SEEN Normal 0-[address] [facility] Comment on above: Order Comment: CLEAN CATCH Performed By: #### L 400.0001 ####[facility] [address] [place], [address] Mucus Ql (Urine sed) [address] [facility] Comment on above: Order Comment: CLEAN CATCH Performed By: #### L 400.0001 ####[facility] [address] [place], [address] RBC 0 SEEN Normal 0-[address] [facility] Comment on above: Order Comment: CLEAN CATCH Performed By: #### L 400.0001 ####[facility] [address] [place], [place], [address] WBC 0 SEEN Normal 0-[address] [facility] Comment on above: Order Comment: CLEAN CATCH Performed By: #### L 400.0001 ####[facility] [address] [place], [place], [id number] Urine benzodiazepine levelOr dered By: Conrado Fraser on 06-25-2024 Benzodiazepines Ql (U) Negative < 200 ng/mL [facility] Urine clarityOrdered By: Dom Romero on 06-25-2024 Clarity (U) Clear Clear [facility] Urine cocaine levelOrdered B y: Conrado Fraser on 06-25-2024 Cocaine Ql (U) Negative < 300 ng/mL [facility] Urine color determinationOrd ered By: Rolan Romero on 06-25-2024 Color (U) Yellow Yellow [facility] Urine heagy-1-vdwtkucheajtzn abinol (THC) measurementOrdered By: Conrado Fraser on 06-25-2024 Cannabinoids Screen Ql (U) Negative < 50 ng/mL [facility] Urine glucose detectionOrder ed By: Rolan Romero on 06-25-2024 Glucose Ql (U) 1000 mg/dl High Normal [facility] Urine leukocyte esterase det ection by dipstickOrdered By: Rolan Romero on 06-25-2024 Leukocyte esterase Test strip Ql (U) Negative Negative [facility] Urine pHOrdered By: Rolan Saul on 06-25-2024 pH (U) 7.0 [pH] 5.0 - 8.[address] [facility] Urine phencyclidine (PCP) de tectionOrdered By: Conrado Fraser on 06-25-2024 Phencyclidine Ql (U) Negative < 25 ng/mL [facility] Urine sediment bacteria coun t by microscopy (number/high power field)Ordered By: Rolan Romero on 06-25-2024 Bacteria LM.HPF (Urine sed) [#/Area] 0 /[HPF] None Seen [facility] Urine specific gravity measu rementOrdered By: Rolan Romero on 06-25-2024 Specific gravity (U) [Rel density] 1.010 1.002-1.[address] [facility] Urine urobilinogen measureme ntOrdered By: Rolan Romero on 06-25-2024 Urobilinogen Ql (U) Normal mg/dl Normal [facility] Venous Blood Gason 5 Blood Gas Type ROSA Normal [facility] Comment on above: Performed By: #### L 9000.0810 ####[facility] [address] [place], [address] CO2 [Moles/Vol] 30 mmol/L Normal 23-[address] [facility] Comment on above: Performed By: #### L 8999.0810 ####[facility] [address] [place], [address] HCO3 (Bld) [Moles/Vol] 29 mmol/L High 22-26 [facility] Comment on above: Performed By: #### L 9000.0810 ####[facility] [address] [place], [address] O2 Delivery Dev Room Air Normal [facility] Comment on above: Performed By: #### L 9000.0810 ####[facility] [address] [place], [address] SITE Not entered Normal [facility] Comment on above: Performed By: #### L 9000.0810 ####[facility] [address] [place], [address] VBG BE 4 mmol/L High -1.0-3.[address] [facility] Comment on above: Performed By: #### L 900.0810 ####[facility] [address] [place], [address] VBG pCO2 42.7 mmHg Normal 41-[address] [facility] Comment on above: Performed By: #### L 9000.0810 ####[facility] [address] [place], [address] VBG pH 7.43 High 7.32-7.[address] [facility] Comment on above: Performed By: #### L 9000.0810 ####[facility] [address] [place], [address] VBG PO2 29 mmHg Normal 25-[address] [facility] Comment on above: Performed By: #### L 9000.0810 ####[facility] [address] [place], [address] VBG SO2 58 Normal 50-[address] [facility] Comment on above: Performed By: #### L 9000.0810 ####[facility] [address] [place], [place], [address] Venous blood base excess mine surementOrdered By: Rolan Romero on 06-25-2024 Base excess Calc (BldV) [Moles/Vol] 4 mmol/L High -1.0-3.[address] [facility] Venous blood bicarbonate mine surementOrdered By: Rolan Romero on 06-25-2024 HCO3 (Bld) [Moles/Vol] 29 mmol/L High 22-26 [facility] Venous blood oxygen saturati on measurementOrdered By: Rolan Romero on 06-25-2024 Oxygen saturation in Blood 58 % 50-[address] [facility] Venous blood pH measurementO rdered By: Rolan Romero on 06-25-2024 pH (BldV) 7.43 [pH] High 7.32-7.[address] [facility] Venous blood partial pressur e of carbon dioxide measurementOrdered By: Rolan Romero on 06-25-2024 CO2 (BldV) [Partial pressure] 42.7 mm[Hg] 41-[address] [facility] Venous blood partial pressur e of oxygen measurementOrdered By: Rolan Quinn on 06-25-2024 Oxygen (BldV) [Partial pressure] 29 mm[Hg] 25-[address] [facility] White blood cell (WBC) count Ordered By: Rolan Romero on 06-25-2024 WBC (Bld) [#/Vol] 4.8 10*3/uL 4.4-11.0 [facility] White blood cell countOrdere d By: Rolan Romero on 06-25-2024 White blood cell count 0 SEEN /hpf 0-5 [facility] CNPNon 06-21-2024 CNPN Telephone (AGFAMPLE) ANALILIA MELENDREZ ([id number]) 1960 M Date Time Provider Department 06/21/24 [...] be called in FLORENTINO Cerrato Brittny A, APRN.[facility] 06/23/2024 8:13 AM Signed His urine would need to be tested first. I placed the lab order. Marianna Wagner APRN.ACCOUNT SUPPORT ASSOCIATE 06/23/2024 8:13 AM Signed Addended by: MARIANNA [...] Fully Assessed Reason for Visit: Patient Question [5707] Primary Visit Diagnosis:UTI symptoms [R39.9] Order(s):URINALYSIS (WITH MICROSCOPIC) WITH CULTURE IF INDICATED [SQUACII] Order #: [id number] FUTURE Prescriptions as of 06/23/2024 - UNIFINE [...] fourteen (14) days to upper arm. - ifuhvj-ajfgqaho-xxncjra (CREON 36) 36,000-114,000- 180,000 unit delayed release capsule Take 2 pills by mouth with first bite of meal and take 1 pill with snacks. Max 10 per day. - Cholecalciferol, Vitamin D3, (VITAMIN D-3) 50 mcg (2,000 unit) cap Take 1 capsule by mouth once daily. 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*01/03/2017 Chronic pancreatitis (HCC) [K86.1] 08/09/2023 Calcium [...] attack) [ (more content not included)... Normal [facility] CNPNon 04-13-2024 CNPN Telephone (AGFAMPLE) ANALILIA MELENDREZ ([id number]) 1960 M Date Time Provider Department 04/13/24 MARIANNA WAGNER During your visit today, we recorded the following information about you: Giulia Rogel MA 04/13/2024 4:13 PM Signed Patient called he was at the [facility] and BP was 180/110 he states he has been having headaches and dizziness. He denies other symptoms patient would like to know if he needs a med change FLORENTINO Cerrato Brittny A, LOCAL AREA NETWORK ADMINISTRATOR.[facility] 04/14/2024 8:19 AM Signed I would [...] fourteen (14) days to upper arm. - kdtsgz-fcmzivhz-prmszdd (CREON 36) 36,000-114,000- 180,000 unit delayed release capsule Take 2 pills by mouth with first bite of meal and take 1 pill with snacks. Max 10 per day. - Cholecalciferol, Vitamin D3, (VITAMIN D-3) 50 mcg (2,000 unit) cap Take 1 capsule by mouth once daily. 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 Normal [facility] CBC W Auto Differential pane l (Bld)on 04-12-2024 Basophils (Bld) [#/Vol] 0.11 10*3/uL High <0.11 [facility] Comment on above: Order Comment: Speci men Type: BLOOD SPECIMENOrdering Facility: [facility] Address: [address] [place] [address] Performed By: #### 5 7021-8 ####[facility] [id number] [place] [address] [place] Basophils/100 WBC (Bld) 2.1 % Normal C [facility] Comment on above: Order Comment: Speci men Type: BLOOD SPECIMENOrdering Facility: [facility] Address: [address] [place] [address] Performed By: #### 5 7021-8 ####[facility] CENTERMARIANNAA [id number] [place] [address] [place] Differential cell count method Nom (Bld) Auto Normal [facility] Comment on above: Order Comment: Speci men Type: BLOOD SPECIMENOrdering Facility: [facility] Address: [address] [place] [address] Performed By: #### 5 7021-8 ####[facility] HOSPITALLIA [id number] [place] [address] [place] Eosinophils (Bld) [#/Vol] 0.06 10*3/uL Normal <0.46 [facility] Comment on above: Order Comment: Speci men Type: BLOOD SPECIMENOrdering Facility: [facility] Address: [address] [place] [address] Performed By: #### 5 7021-8 ####[facility] FOSTERJevonNCROSAURA [id number] [place] [address] [place] Eosinophils/100 WBC (Bld) 1.1 % Normal [facility] Comment on above: Order Comment: Speci men Type: BLOOD SPECIMENOrdering Facility: [facility] Address: [address] [place] [address] Performed By: #### 5 7021-8 ####[facility] CENTERNCLI [id number] [place] [address] [place] Erythrocyte distribution width (RBC) [Ratio] 15.6 % High 11.5-15.0 [facility] Comment on above: Order Comment: Speci men Type: BLOOD SPECIMENOrdering Facility: [facility] Address: [address] [place] [address] Performed By: #### 5 7021-8 ####[facility]ENTERNCA [id number] [place] [address] [place] Hematocrit (Bld) [Volume fraction] 36.8 % Low 39.0-51.0 [facility] Comment on above: Order Comment: Speci men Type: BLOOD SPECIMENOrdering Facility: [facility] Address: [address] [place] [address] Performed By: #### 5 7021-8 ####[facility]ENTERNCLIA [id number] [place] [address] [place] Hemoglobin (Bld) [Mass/Vol] 11.9 g/dL Low 13.0-17.0 [facility] Comment on above: Order Comment: Speci men Type: BLOOD SPECIMENOrdering Facility: [facility] Address: [address] [place] [address] Performed By: #### 5 7021-8 ####[facility] MILLTOWNCLIA [id number] [place] [address] [place] Immature granulocytes (Bld) [#/Vol] 10*3/uL Normal <0.10 [facility] Comment on above: Order Comment: Speci men Type: BLOOD SPECIMENOrdering Facility: [facility] Address: [address] [place] [address] Performed By: #### 5 7021-8 ####[facility]ENTERWNCLIA [id number] [place] [address] [place] Immature granulocytes/100 WBC (Bld) 0.4 % Normal [facility] Comment on above: Order Comment: Speci men Type: BLOOD SPECIMENOrdering Facility: [facility] Address: [address] [place] [address] Performed By: #### 5 7021-8 ####[facility] HOSPITALLIA [id number] [place] [address] [place] Lymphocytes (Bld) [#/Vol] 1.31 10*3/uL Normal 1.00-4.00 [facility] Comment on above: Order Comment: Speci men Type: BLOOD SPECIMENOrdering Facility: [facility] Address: [address] [place] [address] Performed By: #### 5 7021-8 ####[facility] MILLWNCLIA [id number] [place] [address] [place] Lymphocytes/100 WBC (Bld) 24.5 % Normal [facility] Comment on above: Order Comment: Speci men Type: BLOOD SPECIMENOrdering Facility: [facility] Address: [address] [place] [address] Performed By: #### 5 7021-8 ####[facility]ENTERNCLIA [id number] [place] [id number] [place] MCH (RBC) [Entitic mass] 32.3 pg Normal 26.0-34.0 [facility] Comment on above: Order Comment: Speci men Type: BLOOD SPECIMENOrdering Facility: [facility] Address: [address] [place] [address] Performed By: #### 5 7021-8 ####[facility] CENTERRODO [id number] [place] [address] [place] MCHC (RBC) [Mass/Vol] 32.3 g/dL Normal 30.5-36.0 [facility] Comment on above: Order Comment: Speci men Type: BLOOD SPECIMENOrdering Facility: [facility] Address: [address] [place] [address] Performed By: #### 5 7021-8 ####[facility] CENTERMAGUETayla [id number] [address] [place] MCV (RBC) [Entitic vol] 100.0 fL Normal 80.0-100.0 C [facility] Comment on above: Order Comment: Speci men Type: BLOOD SPECIMENOrdering Facility: [facility] Address: [address] [place] [address] Performed By: #### 5 7021-8 ####[facility] EMERGENCYTayla [id number] [place] [address] [place] Monocytes (Bld) [#/Vol] 0.44 10*3/uL Normal <0.87 [facility] Comment on above: Order Comment: Speci men Type: BLOOD SPECIMENOrdering Facility: [facility] Address: [address] [place] [address] Performed By: #### 5 7021-8 ####[facility] CENTERNCLIA [id number] [address] [place] Monocytes/100 WBC (Bld) 8.2 % Normal C [facility] Comment on above: Order Comment: Speci men Type: BLOOD SPECIMENOrdering Facility: [facility] Address: [address] [place] [address] Performed By: #### 5 7021-8 ####[facility] FOSTERLYNDON CENTERMAGUELIA [id number] [place] [address] [place] Neutrophils (Bld) [#/Vol] 3.41 10*3/uL Normal 1.45-7.50 [facility] Comment on above: Order Comment: Speci men Type: BLOOD SPECIMENOrdering Facility: [facility] Address: [address] [place] [address] Performed By: #### 5 7021-8 ####[facility] HOSPITALLIA [id number] [place] [address] [place] Neutrophils/100 WBC (Bld) 63.7 % Normal [facility] Comment on above: Order Comment: Speci men Type: BLOOD SPECIMENOrdering Facility: [facility] Address: [address] [place] [address] Performed By: #### 5 7021-8 ####[facility] HOSPITALLIA [id number] [place] [address] [place] Nucleated RBC (Bld) [#/Vol] 10*3/uL Normal <0.01 [facility] Comment on above: Order Comment: Speci men Type: BLOOD SPECIMENOrdering Facility: [facility] Address: [address] [place] [address] Performed By: #### 5 7021-8 ####[facility] HOSPITALLIA [id number] [place] [address] [place] Nucleated RBC/100 WBC (Bld) [Ratio] 0.0 /100 WBC Normal [facility] Comment on above: Order Comment: Speci men Type: BLOOD SPECIMENOrdering Facility: [facility] Address: [address] [place] [address] Performed By: #### 5 7021-8 ####[facility] MILLTOWNCLIA [id number] [place] [address] [place] Platelet mean volume (Bld) [Entitic vol] 11.6 fL Normal 9.0-12.7 [facility] Comment on above: Order Comment: Speci men Type: BLOOD SPECIMENOrdering Facility: [facility] Address: [address] [place], [place] [address] Performed By: #### 5 7021-8 ####[facility] CENTERNCLIA [id number] [place] [address] [place] Platelets (Bld) [#/Vol] 164 10*3/uL Normal 150-400 [facility] Comment on above: Order Comment: Speci men Type: BLOOD SPECIMENOrdering Facility: [facility] Address: [address] [place], [place] [address] Performed By: #### 5 7021-8 ####[facility]ENTERNCLIA [id number] [place] [address] [place] RBC (Bld) [#/Vol] 3.68 10*6/uL Low 4.20-6.00 [facility] Comment on above: Order Comment: Speci men Type: BLOOD SPECIMENOrdering Facility: [facility] Address: [address] [place], [place] [address] Performed By: #### 5 7021-8 ####[facility] MILLWNCLIA [id number] [place] [address] [place] WBC (Bld) [#/Vol] 5.35 10*3/uL Normal 3.70-11.00 [facility] Comment on above: Order Comment: Speci men Type: BLOOD SPECIMENOrdering Facility: [facility] Address: [address] [place], [place] [address] Performed By: #### 5 7021-8 ####[facility]ENTERNCLIA [id number] [place] [address] [place] CNOVSPon 04-12-2024 CNOVSP Normal [facility] ANES POSTPROC EVALon 025 ANES POSTPROC EVAL HNO ID: [id number] Author: LUCAS SAHU MD Service: Anesthesiology Author Type: Anesthesiologist Type: Anesthesia Postprocedure Evaluation Filed: 04/05/2024 13:44 Note Text: POST ANESTHESIA EVALUATION NOTE : 1960 Procedure Summary Date: 04/05/24 Room / Location: [facility] Endoscopy Anesthesia Start: 1215 Anesthesia Stop: 1256 Procedures: COLONOSCOPY DIAGNOSTIC EGD DIAGNOSTIC Diagnosis: Anemia, unspecified type Weight loss Chronic pancreatitis, unspecified pancreatitis type (HCC) Epigastric pain (Iron deficiency anemia) (Iron deficiency anemia) Scheduled Providers: Phoebe Vazquez MD; Trenton Amaral MD; Lucas Delarosa APRN.TRAFFIC ASSISTANT Responsible Provider: Román Vazquez MD Anesthesia Type: [...] April 05, 2024 TIME: 1:44 PM CSN: [id number] [facility] ANES PRE-OPon 04-05-2024 ANES PRE-OP HNO ID: [id number] Author: TRENTON AMARAL MD Service: ? Author Type: Anesthesiologist Type: Anesthesia Preprocedure Evaluation Filed: 04/05/2024 12:16 Note Text: ANESTHESIOLOGY DAY OF SURGERY NOTE : 1960 Procedure Information Date/Time: 04/05/24 1415 Scheduled providers: Phoebe Vazquez MD; Trenton Amaral MD; Lucas Delarosa APRN.TRAFFIC ASSISTANT Procedures: COLONOSCOPY DIAGNOSTIC EGD DIAGNOSTIC Location: [facility] Endoscopy Estimated body mass index is 18.97 kg/m? as calculated from the following: Height as of 12/27/23: 180.3 cm (5' 11). Weight as of 12/27/23: 61.7 kg (136 lb). Most recent hematocrit and potassium results: Hematocrit 31.8 10/15/2023 Potassium 4.8 10/15/2023 Relevant Problems CARDIO (+) Acute thoracic aortic dissection (HCC) (+) Aortic aneurysm (HCC) (+) Atherosclerotic heart disease of [place] coronary artery without angina pectoris (+) Old [...] every fourteen (14) days to upper arm. udwogl-bnfqdbbe-qghzdpb (CREON 36) 36,000-114,000- 180,000 unit delayed release capsule Take 2 pills by mouth with first bite of meal and take 1 pill with snacks. Max 10 per day. Cholecalciferol, Vitamin D3, (VITAMIN D-3) 50 mcg (2,000 unit) cap Take 1 capsule by mouth once daily. Blood-Glucose Meter,Continuous (FREESTYLE MANGO 3 READER) [facility] Use to check blood sugar at least [...] April 05, 2024 TIME: 11:39 AM CSN: [id number] Normal [facility] Colonoscopyon 04-05-2024 Colonoscopy [facility] Gastrointestinal Endoscopy Patient Name: Analilia Melendrez Procedure Date: 04/05/2024 12:31 PM Date of : 1960 Admit Type: Outpatient Age: 63 Room: [facility] Gender: Male Note Status: Finalized Attending MD: Phoebe Vazquez MD, [id number] Procedure: Colonoscopy Indications: Iron deficiency anemia Providers: [...] anesthesia care under the supervision of a TRAFFIC ASSISTANT was determined to be medically necessary for [...] was poor. Procedure Code(s): --- Professional --- 31159, Colonoscopy, flexible; diagnostic, including collection of specimen(s) by brushing or washing, when performed (separate procedure) Diagnosis Code(s): --- Professional --- D50.9, Iron deficiency anemia, unspecified K64.8, Other hemorrhoids CPT copyright 2020 [employer]. All rights reserved. The codes documented in this report are preliminary and upon site safety manager review may be revised to meet current compliance requirements. Attending Participation: I personally performed the entire procedure. Scope In: 12:34:29 PM Scope Out: 12:51:09 PM MD Phoebe Fuchs MD 04/05/2024 12:56:42 PM This report has been signed electronically by Phoebe Vazquez MD Number of Addenda: 0 Note Initiated On: 04/05/2024 12:31 PM Estimated Blood Loss: Estimated blood loss was minimal. Normal [facility] EGD Study observation Meera petty 04-05-2024 [facility] Gastrointestinal Endoscopy Patient Name: Analilia Melendrez Procedure Date: 04/05/2024 12:04 PM Date of : 1960 Admit Type: Outpatient Age: 63 Room: [facility] Gender: Male Note Status: Finalized Attending MD: Phoebe Vazquez MD, [id number] Procedure: Upper GI endoscopy Indications: Iron deficiency anemia Providers: Phoebe Vazquez MD Patient Profile: Refer to note in patient chart for documentation of history and physical. Referring Physician: Susana Ramirez (Referring MD) Medicines: See the Anesthesia note for documentation of the administered medications Complications: No immediate complications. Requesting Provider: Procedure: Pre-Anesthesia Assessment: - Monitored anesthesia care under the supervision of a TRAFFIC ASSISTANT was determined to be medically necessary for [...] pathology results Procedure Code(s): --- Professional --- 63161, Esophagogastroduodenosc opy, flexible, transoral; with biopsy, single or multiple Diagnosis Code(s): --- Professional --- D50.9, Iron deficiency anemia, unspecified K22.89, Other specified disease of esophagus K31.89, Other diseases of stomach and duodenum CPT copyright 2020 [employer]. All rights reserved. The codes documented in this report are preliminary and upon site safety manager review may be revised to meet current compliance requirements. Attending Participation: I personally performed the entire procedure. Scope In: 12:23:40 PM Scope Out: 12:29:35 PM MD Phoebe Fuchs MD 04/05/2024 12:33:21 PM This report has been signed electronically by Phoebe Vazquez MD Number of Addenda: 0 Note Initiated On: 04/05/2024 12:04 PM Estimated Blood Loss: Estimated blood loss was minimal. PROVATION [facility] Radiology Study observation (narrative) [facility] Flexible sigmoidoscopy study on 04-05-2024 [facility] Gastrointestinal Endoscopy Patient Name: Analilia Melendrez Procedure Date: 04/05/2024 12:31 PM Date of : 1960 Admit Type: Outpatient Age: 63 Room: [facility] Gender: Male Note Status: Finalized Attending MD: Phoebe Vazquez MD, [id number] Procedure: Colonoscopy Indications: Iron deficiency anemia Providers: [...] anesthesia care under the supervision of a TRAFFIC ASSISTANT was determined to be medically necessary for [...] was poor. Procedure Code(s): --- Professional --- 03558, Colonoscopy, flexible; diagnostic, including collection of specimen(s) by brushing or washing, when performed (separate procedure) Diagnosis Code(s): --- Professional --- D50.9, Iron deficiency anemia, unspecified K64.8, Other hemorrhoids CPT copyright 2020 [employer]. All rights reserved. The codes documented in this report are preliminary and upon site safety manager review may be revised to meet current compliance requirements. Attending Participation: I personally performed the entire procedure. Scope In: 12:34:29 PM Scope Out: 12:51:09 PM MD Phoebe Fuchs MD 04/05/2024 12:56:42 PM This report has been signed electronically by Phoebe Vazquez MD Number of Addenda: 0 Note Initiated On: 04/05/2024 12:31 PM Estimated Blood Loss: Estimated blood loss was minimal. PROVATION [facility] Radiology Study observation (narrative) [facility] GLUCOSE, BLOOD (POC)on 04-05 Glucose [Mass/Vol] 198 mg/dL Abnormal 74 - 99 mg/dL [facility] Comment on above: Location:[address], [address] The Accu-Chek Inform II glucose meter has [...] and review of laboratory results Abnormal [facility] HISTORY PHYSICALon HISTORY PHYSICAL HNO ID: [id number] Author: PHOEBE VAZQUEZ MD Service: General Surgery [...] [facility] / Outside records reviewed. Latest Ref [facility] 10/15/2023 WBC 3.70 - 11.00 [...] Abs Lymph 1.00 - 4.00 k/uL 1.82 Turner% % 11.0 Abs Turner <0.87 k/uL 0.51 Eosin% % 0.0 Abs [...] ascending aorta repair Hyperlipidemia Hypertension Non-ST elevation MA (NSTEMI) (HCC) 06/24 Pacemaker Paroxysmal atrial fibrillation [...] No Known Allergies Medications: CURRENT MEDICATIONS Insulin [place], Disposable, (BD ULTRA-FINE NORBERTO PEN NEEDLE) 32 [...] daily. Blood-Glucose Meter,Continuous (FREESTYLE MANGO 3 READER) [facility] Use to check blood sugar at least [...] before eating. dicyc (more content not included)... [facility] Pathology biopsy report Jose Carlos (Tiss)on 04-05-2024 AP DISCLAIMER [facility] Comment on above: Order Comment: Speci men Type: TISSUE SPECIMEN Ordering Facility: [facility] Address: [address] [place] [address] Result Comment: Etienne Montano Test (LDT) Disclaimer: Performance characteristics of immunohistochemical, immunofluorescent, and chromogenic in-situ hybridization tests have been determined by the performing laboratory within [facility]'s Kye Jolene [facility] Pathology and Laboratory Medicine Department ([facility], [facility], [facility], [facility], [facility], [facility], or [facility]) in a manner consistent with CLIA [...] #### 6 6121-5 #### [facility] CLIA [id number] [address] [place] [address] LAB CLIA [id number] [address] [place] [address] CASE REPORT Normal [facility] Comment on above: Order Comment: Speci men Type: TISSUE SPECIMEN Ordering Facility: [facility] Address: [address] [place] [address] Result Comment: Surg [facility] Pathology Report Case: [id number] Authorizing Provider: Phoebe Vazquez MD Collected: 04/05/2024 12:25 PM Ordering Location: [facility] Endoscopy Received: 04/05/2024 02:20 PM Pathologist: Wilma Pham MD Specimens: A) - Small Bowel, Duodenum, Biopsy B) - Stomach, Biopsy, antrum C) - Esophagus, Mid, Biopsy D) - Esophagogastric Junction, Biopsy E) - Colon, Biopsy Performed By: #### 6 6121-5 #### [facility] CLIA [id number] [address] [place] [address] LAB CLIA [id number] [address] [place] [address] FINAL DIAGNOSIS Normal [facility] Comment on above: Order Comment: Speci men Type: TISSUE SPECIMEN Ordering Facility: [facility] Address: [address] [place] [address] Result Comment: A. S mall bowel, biopsy: [...] #### 6 6121-5 #### [facility] CLIA [id number] [address] [place] [address] [place] [facility] CLIA [id number] [address] [place] [address] [place] FINAL PERFORMING LAB Normal [facility] Comment on above: Order Comment: Speci men Type: TISSUE SPECIMEN Ordering Facility: [facility] Address: [address] [place] [address] Result Comment: Diag nostic interpretation performed at: [facility], [address] [place] [address] CLIA# [id number] Home Health Scheduler: Adriane Long MD Performed By: #### 6 6121-5 #### [facility] CLIA [id number] [address] [place] [address] STATES [place] [facility] LAB CLIA [id number] [address] [place] [address] [place] GROSS DESCRIPTION [facility] Comment on above: Order Comment: Speci men Type: TISSUE SPECIMEN Ordering Facility: [facility] Address: [address] [place] [address] Result Comment: A. S mall Bowel, Duodenum, [...] 0.2 cm. Totally submitted in one cassette. [facility] April 05, 2024 9:22 PM Gross examination performed at [facility], [address] [place] [address] Performed By: #### 6 6121-5 #### [facility] CLIA [id number] [place] [facility] CLIA [id number] [address] [facility] Upper GI endoscopyon 04-05- 025 Upper GI endoscopy [facility] Gastrointestinal Endoscopy Patient Name: Analilia Melendrez Procedure Date: 04/05/2024 12:04 PM Date of : 1960 Admit Type: Outpatient Age: 63 Room: [facility] Gender: Male Note Status: Finalized Attending MD: Phoebe Vazquez MD, [id number] Procedure: Upper GI endoscopy Indications: Iron deficiency anemia Providers: Phoebe Vazquez MD Patient Profile: Refer to note in patient chart for documentation of history and physical. Referring Physician: Susana Ramirez (Referring MD) Medicines: See the Anesthesia note for documentation of the administered medications Complications: No immediate complications. Requesting Provider: Procedure: Pre-Anesthesia Assessment: - Monitored anesthesia care under the supervision of a TRAFFIC ASSISTANT was determined to be medically necessary for [...] pathology results Procedure Code(s): --- Professional --- 28362, Esophagogastroduodenosc opy, flexible, transoral; with biopsy, single or multiple Diagnosis Code(s): --- Professional --- D50.9, Iron deficiency anemia, unspecified K22.89, Other specified disease of esophagus K31.89, Other diseases of stomach and duodenum CPT copyright 2020 [employer]. All rights reserved. The codes documented in this report are preliminary and upon site safety manager review may be revised to meet current compliance requirements. Attending Participation: I personally performed the entire procedure. Scope In: 12:23:40 PM Scope Out: 12:29:35 PM MD Phoebe Fuchs MD 04/05/2024 12:33:21 PM This report has been signed electronically by Phoebe Vazquez MD Number of Addenda: 0 Note Initiated On: 04/05/2024 12:04 PM Estimated Blood Loss: Estimated blood loss was minimal. [facility] 03-31-2024 [facility] 03-29-2024 [facility] 03-24-2024 [facility] Telephone (MEPRAD) ANALILIA MELENDREZ ([id number]) 1960 M Date Time Provider Department 03/24/24 [...] Date Reviewed: 12/27/2023 Reviewed by: Marianna Wagner APRN.ACCOUNT SUPPORT ASSOCIATE - Fully Assessed Prescriptions as of 03/24/2024 [...] fourteen (14) days to upper arm. 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 Normal [facility] CNPN Normal [facility] HbA1c (Bld)on 03-14-2024 Average glucose Estimated from glycated hemoglobin (Bld) [Mass/Vol] 171 mg/dL Normal [facility] Comment on above: Order Comment: Speci men Type: BLOOD SPECIMENOrdering Facility: [facility] Address: [address] [place] [address] Result Comment: eAG: (Estimated average glucose) is a calculated value from HgbA1c and is instruments sales representative of the average blood glucose level in the last 2-3 month period. Performed By: #### 5 5454-3 ####[facility] LAB[facility]IA [id number] [place] [id number] [place] HbA1c (Bld) [Mass fraction] 7.6 % High 4.3-5.6 [facility] Comment on above: Order Comment: Speci men Type: BLOOD SPECIMENOrdering Facility: [facility] Address: [address] [place] [address] Result Comment: Modesot [place] [employer] Association guidelines indicate that patients with HgbA1c in the range 5.7-6.4% are at increased risk for development of diabetes, and intervention by lifestyle modification may be beneficial. HgbA1c greater or equal to 6.5% is considered diagnostic of diabetes. Performed By: #### 5 5454-3 ####[facility] LABCLIA [id number] [address] [place] 03-13-2024 [facility] Telephone (AGFAMPLE) ANALILIA MELENDREZ ([id number]) 1960 M Date Time Provider Department 03/13/24 [...] He had to cancel his appointment at [facility] and they will call him tomorrow with a reschedule at [facility]. Allergies As of Date: 03/13/2024 (No Known Allergies) Date Reviewed: 12/27/2023 Reviewed by: Marianna Wagner APRN.ACCOUNT SUPPORT ASSOCIATE - Fully Assessed Reason for Visit: Patient Question [7237] Prescriptions as of 03/14/2024 - atorvastatin (LIPITOR) [...] fourteen (14) days to upper arm. - pnkasd-fudsduvv-xidnhru (CREON 36) 36,000-114,000- 180,000 unit delayed release capsule Take 2 pills by mouth with first bite of meal and take 1 pill with snacks. Max 10 per day. - Cholecalciferol, Vitamin D3, (VITAMIN D-3) 50 mcg (2,000 unit) cap Take 1 capsule by mouth once daily. 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 Normal [facility] CNPNon 02-21-2024 CNPN Telephone (AGFAMPLE) ANALILIA MELENDREZ ([id number]) 1960 M Date Time Provider Department 02/21/24 [...] Date Reviewed: 12/27/2023 Reviewed by: Marianna Wagner APRN.ACCOUNT SUPPORT ASSOCIATE - Fully Assessed Reason for Visit: Patient Question [4997] Prescriptions as of 02/21/2024 - pantoprazole DR [...] fourteen (14) days to upper arm. 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 Chronic pancreatitis (HCC) [K86.1] 08/09/2023 Calcium [...] uncomplicated* 7 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] 05/20/2023 shelter (current) use of insulin (HCC) [Z79.4]01/03/2017 Pansystolic murmur [R01.1] 08/09/2023 Unspecified severe protein-calorie malnutrition*05/20/2023 Encounter Status:Closed by GIULIA ROGEL on 02/21/24 [facility] CNPChanel 02-16-2024 [facility] Telephone (AGFAMPLE) ANALILIA MELENDREZ ([id number]) 1960 M Date Time Provider Department 02/16/24 [...] Date Reviewed: 12/27/2023 Reviewed by: Marianna Wagner APRN.ACCOUNT SUPPORT ASSOCIATE - Fully Assessed Reason for Visit: Lab Orders [7908] Prescriptions as of 03/03/2024 - pantoprazole DR [...] fourteen (14) days to upper arm. 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) [Z79.4]01/03/2017 Pansystolic murmur [R01.1] 08/09/2023 Unspecified severe protein-calorie malnutrition*05/20/2023 Encounter Status:Closed by SUZI HAYNES on 03/03/24 [facility] 01-14-2024 [facility] 12-31-2023 [facility] CNOVon 12-27-2023 CNOV Office Visit (DALJIT CALL) SAURAVANALILIA LANDAVERDE ([id number]) 1960 Date Time Provider Department 12/27/23 2:00 PM MARIANNA WAGNER During your visit today, we recorded the following information about you: Temperature Pulse Respiration Blood pressure 97.8 degrees 75/minute 16/minute 126/70 Weight Height 61.7 kg 1.803 m Marianna Wagner APRN.[facility] 01/08/2024 8:36 PM Signed CHIEF COMPLAINT: [...] Got it through a diabetic clinic in [facility] has been refilling it for him [...] lbs. Was 165 lbs prior to the [facility] in June. Has frequent nausea and vomiting. Has a low appetite Unsure of what his last A1C was BS are either really high or low. Has a freestyle mango. Taking Lantus insulin. No meal time insulin. Taking Farxiga and Metformin (has been on that for awhile). 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 States he either had a seizure or stroke and was placed in the hospital and then went to a [facility] for 5 weeks. 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 Started smoking [...] repair Hyperlipidemia (more content not included)... Normal [facility] CNOVon 12-24-2023 CNOV Normal [facility] Catia 12-16-2023 S[facility] Telephone (AGFAMPLE) DARRINANALILIA VERNON ([id number]) 1960 M Date Time Provider Department 12/16/23 MARIANNA WAGNER During your visit today, we recorded the following information about you: Suzi Haynes MA 12/16/2023 5:04 PM Signed ----- Message from Marianna Wagner APRN.ACCOUNT SUPPORT ASSOCIATE sent at 12/15/2023 6:32 PM EST ----- [...] [95] Prescriptions as of 12/16/2023 - Insulin [place], Disposable, (BD ULTRA-FINE NORBERTO PEN NEEDLE) 32 [...] 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 Normal [facility] ALLIED HEALTHon 12-08-2023 ALLIED HEALTH HNO ID: [id number] Author: ANNY DURHAM CT Service: Radiology Author [...] PATIENT PRESENTS WITH AN IMPLANTABLE OR ATTACHED MANAGER PLANNING: No RADIOLOGY DEPARTMENT: CT; Exam(s) Completed: Pancreas PERIPHERAL IV DATA: Site assessment: Clean,Dry and Intact, Site disposition Discontinued SIGNED BY: KIRA Thomas December 08, 2023 10:57 AM [facility] CT PANCREAS W IVCONon 2023 CT PANCREAS W IVCON * * *Final Report* * * DATE OF EXAM: Dec 08 2023 11:00AM [facility] [place] PANCREAS W IVCON / [...] at least 2017. No identifiable pancreatic mass. Cardiac Nurse Specialist: PSCB Transcribe Date/Time: Dec 15 2023 10:26A Dictated by : SULEMAN SANCHEZ MD This examination was interpreted and the report reviewed and electronically signed by: SULEMAN SANCHEZ MD on Dec 15 2023 10:37AM EST [id number] [facility] NURSING PROGon 12-08-2023 NURSING PROG HNO ID: [id number] Author: SIGRID MATA RN Service: Radiology Author [...] 08, 2023 TIME: 10:42 AM [facility] 12-07-2023 SAY[facility] Telephone (KI) ANALILIA MELENDREZ ([id number]) 1960 M Date Time Provider Department 12/07/23 [...] pancreatitis type [K85.90] Order(s):CT PANCREAS W IVCON [[id number]] Order #: [id number] FUTURE iv contrast (will be provided with [...] CT contrast administration guidelines link. 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 [facility] CNPN Telephone (AGFAMPLE) ANALILIA MELENDREZ ([id number]) 1960 M Date Time Provider Department 11/25/23 MARIANNA WAGNER During your visit today, we recorded the following information about you: Twyla Espana 11/25/2023 12:59 PM Signed Denial: CPT 44818-FU PANCREAS W IVCON Denial Type: Payer Clinical [...] Yes Peer to Peer Deadline: 11/30/2023 Insurance Case#[id number] Peer to Peer opt 2 (enter tracking#) / opt 1 Denial sent to providers email Marianna Wagner APRN.CNP 11/29/2023 12:17 PM Signed Completed peer to peer for CT pancreas with IV contrast and obtained approval. # [id number] until 11/30/2023-12/31/2023 He is scheduled tomorrow for the CT. Spoke with Dr. Murillo with [facility] for reference. 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 Normal [facility] 11-16-2023 CNPN Telephone (AGFAMPLE) ANALILIA MELENDREZ ([id number]) 1960 M Date Time Provider Department 11/16/23 MARIANNA WAGNER During your visit today, we recorded the following information about you: Suzi Haynes MA 11/16/2023 2:33 PM Signed Patient left message stating he saw the metal off bearer yesterday and they are very worried about his stomach and wants him to be seen by GI sooner than 12/24/23. Patient states he has called and they cannot see him any sooner and wanted to know if there was anything Marianna could do. Please advise. FLORENTINO Jackson Brittny A, APRN.ACCOUNT SUPPORT ASSOCIATE 11/16/2023 3:07 PM Signed I have already [...] the wait list. Carolinasonja NeilJigna Marianna Wagner APRN.ACCOUNT SUPPORT ASSOCIATE 11/16/2023 4:49 PM Signed Please let the [...] - Blood-Glucose Meter,Continuous (FREESTYLE MANGO 3 READER) [facility] Use to check blood sugar at least [...] tablet by mouth once daily. 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 Normal [facility] 11-07-2023 SAYAR Telephone (AGFAMPLE) ANALILIA MELENDREZ ([id number]) 1960 M Date Time Provider Department 11/07/23 [...] Date Reviewed: 10/14/2023 Reviewed by: Marianna Wagner APRN.ACCOUNT SUPPORT ASSOCIATE - Fully Assessed Reason for Visit: Results [95] Orders [681] Primary Visit Diagnosis:Diarrhea, unspecified type [R19.7] Other Visit Diagnosis:Acute pancreatitis, unspecified complication status, unspecified pancreatitis type [K85.90] Order(s):CT PANCREAS W IVCON [[id number]] Order #: [id number] FUTURE Prescriptions as of 11/09/2023 - metFORMIN (GLUCOPHAGE) 500 mg tablet Take 1 tablet by mouth daily with breakfast. - Cholecalciferol, Vitamin D3, (VITAMIN D-3) 50 mcg (2,000 unit) cap Take 1 capsule by mouth once daily. - ferrous sulfate 325 mg (65 mg iron) tablet Take 1 tablet by mouth once daily. - Blood-Glucose Meter,Continuous (FREESTYLE MANGO 3 READER) [facility] Use to check blood sugar at least [...] tablet by mouth once daily. 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 Normal [facility] .Auto Diffon 10-30-2023 Basophil, Absolute 0.1 10 3/mcL Normal 0.0-0.2 [facility] Comment on above: Performed By: #### A NITESH, ALC, MORPH, ACETA, CBC, LIP, ADIFF, TROPHS, MG, MDW, CMP, NICOLLE, GFR #### [address] [address] Basophils/100 WBC (Bld) 1.3 % Normal 0.0-2.5 [facility] Comment on above: Performed By: #### A NITESH, ALC, MORPH, ACETA, CBC, LIP, ADIFF, TROPHS, MG, MDW, CMP, NICOLLE, GFR #### [address] [address] Eosinophil, Absolute 0.0 10 3/mcL Normal 0.0-0.7 [facility] [facility] Comment on above: Performed By: #### A NITESH, ALC, MORPH, ACETA, CBC, LIP, ADIFF, TROPHS, MG, MDW, CMP, NICOLLE, GFR #### [address] [address] Eosinophils/100 WBC (Bld) 0.3 % Normal 0.0-7.0 [facility] Comment on above: Performed By: #### A NITESH, ALC, MORPH, ACETA, CBC, LIP, ADIFF, TROPHS, MG, MDW, CMP, NICOLLE, GFR #### [address] [address] Lymphocyte, Absolute 1.3 10 3/mcL Normal 0.9-4.3 [facility] Comment on above: Performed By: #### A NITESH, ALC, MORPH, ACETA, CBC, LIP, ADIFF, TROPHS, MG, MDW, CMP, NICOLLE, GFR #### [address] [address] Lymphocytes/100 WBC (Bld) 24.0 % Normal 20.0-40.0 [facility] Comment on above: Performed By: #### A NITESH, ALC, MORPH, ACETA, CBC, LIP, ADIFF, TROPHS, MG, MDW, CMP, NICOLLE, GFR #### [address] [address] Monocyte, Absolute 0.4 10 3/mcL Normal 0.1-1.4 [facility] Comment on above: Performed By: #### A NITESH, ALC, MORPH, ACETA, CBC, LIP, ADIFF, TROPHS, MG, MDW, CMP, NICOLLE, GFR #### [address] [address] Monocytes/100 WBC (Bld) 7.2 % Normal 2.0-13.0 [facility] Comment on above: Performed By: #### A NITESH, ALC, MORPH, ACETA, CBC, LIP, ADIFF, TROPHS, MG, MDW, CMP, NICOLLE, GFR #### [address] [address] Neutrophils/100 WBC (Bld) 67.2 % Normal 50.0-75.0 [facility] Comment on above: Performed By: #### A NITESH, ALC, MORPH, ACETA, CBC, LIP, ADIFF, TROPHS, MG, MDW, CMP, NICOLLE, GFR #### [address] [address] .GFRon 10-30-2023 GFR Non- 51 ml/min/1.73sqm Normal [facility] Comment on above: Result Comment: GFR Population [...] TROPHS, MG, MDW, CMP, NICOLLE, GFR #### [address] [address] GFR 61 ml/min/1.73sqm Normal [facility] Comment on above: Result Comment: GFR Population [...] TROPHS, MG, MDW, CMP, NICOLLE, GFR #### [address] [place], [place] [address] .Navin 10-30-2023 Monocyte Distribution Width 16.35 Normal 0.00-20.00 [facility] Comment on above: Result Comment: For ED adult patients suspected of sepsis, MDW<=20.0 does not rule out sepsis or risk of sepsis Performed By: #### A NITESH, ALC, MORPH, ACETA, CBC, LIP, ADIFF, TROPHS, MG, MDW, CMP, NICOLLE, GFR #### [address] [address] .Morphon 10-30-2023 Macrocytosis 2+ Normal [facility] Comment on above: Performed By: #### A NITESH, ALC, MORPH, ACETA, CBC, LIP, ADIFF, TROPHS, MG, MDW, CMP, NICOLLE, GFR #### [place] [address] Platelet Estimate Normal Normal [facility] Comment on above: Performed By: #### A NITESH, ALC, MORPH, ACETA, CBC, LIP, ADIFF, TROPHS, MG, MDW, CMP, NICOLLE, GFR #### [place] [address] .NEUABSon 10-30-2023 Neutrophil, Absolute 3.6 10 3/mcL Normal 2.3-8.1 [facility] Comment on above: Performed By: #### A NITESH, ALC, MORPH, ACETA, CBC, LIP, ADIFF, TROPHS, MG, MDW, CMP, NICOLLE, GFR #### [place] [address] ACETAon 10-30-2023 Acetaminophen [Mass/Vol] 27.4 ug/mL Normal 10.0-30.0 [facility] Comment on above: Performed By: #### A NITESH, ALC, MORPH, ACETA, CBC, LIP, ADIFF, TROPHS, MG, MDW, CMP, NICOLLE, GFR #### [place] [address] Keren 10-30-2023 Ethanol Level <3 Normal 0-3 [facility] Comment on above: Performed By: #### A NITESH, ALC, MORPH, ACETA, CBC, LIP, ADIFF, TROPHS, MG, MDW, CMP, NICOLLE, GFR #### [address] [address] CBCon 10-30-2023 Erythrocyte distribution width (RBC) [Ratio] 14.8 % Normal 11.5-15.5 [facility] Comment on above: Performed By: #### A NITESH, ALC, MORPH, ACETA, CBC, LIP, ADIFF, TROPHS, MG, MDW, CMP, NICOLLE, GFR #### [place] [address] Hematocrit (Bld) [Volume fraction] 28.5 % Low 40.0-52.0 [facility] Comment on above: Performed By: #### A NITESH, ALC, MORPH, ACETA, CBC, LIP, ADIFF, TROPHS, MG, MDW, CMP, NICOLLE, GFR #### [place] [address] Hgb 9.8 G/dL Low 13.0-17.5 [facility] Comment on above: Performed By: #### A NITESH, ALC, MORPH, ACETA, CBC, LIP, ADIFF, TROPHS, MG, MDW, CMP, NICOLLE, GFR #### [place] [address] MCH (RBC) [Entitic mass] 38.1 pg High 27.0-33.0 [facility] Comment on above: Performed By: #### A NITESH, ALC, MORPH, ACETA, CBC, LIP, ADIFF, TROPHS, MG, MDW, CMP, NICOLLE, GFR #### [place] [address] MCHC 34.5 G/dL Normal 32.0-36.0 [facility] Comment on above: Performed By: #### A NITESH, ALC, MORPH, ACETA, CBC, LIP, ADIFF, TROPHS, MG, MDW, CMP, NICOLLE, GFR #### [place] [address] MCV (RBC) [Entitic vol] 110.2 fL High 81.0-100.0 [facility] Comment on above: Performed By: #### A NITESH, ALC, MORPH, ACETA, CBC, LIP, ADIFF, TROPHS, MG, MDW, CMP, NICOLLE, GFR #### [address] [address] Platelet 176 10 3/mcL Normal 150-450 [facility] Comment on above: Performed By: #### A NITESH, ALC, MORPH, ACETA, CBC, LIP, ADIFF, TROPHS, MG, MDW, CMP, NICOLLE, GFR #### [address] [address] Platelet mean volume (Bld) [Entitic vol] 8.8 fL Normal 6.4-10.5 [facility] Comment on above: Performed By: #### A NITESH, ALC, MORPH, ACETA, CBC, LIP, ADIFF, TROPHS, MG, MDW, CMP, NICOLLE, GFR #### [address] [address] RBC 2.58 10 6/mcL Low 4.50-6.00 [facility] Comment on above: Performed By: #### A NITESH, ALC, MORPH, ACETA, CBC, LIP, ADIFF, TROPHS, MG, MDW, CMP, NICOLLE, GFR #### [address] [address] WBC 5.3 10 3/mcL Normal 4.5-10.8 [facility] Comment on above: Performed By: #### A NITESH, ALC, MORPH, ACETA, CBC, LIP, ADIFF, TROPHS, MG, MDW, CMP, NICOLLE, GFR #### [address] [address] CMPon 10-30-2023 Albumin Level 1.9 G/dL Low 3.4-4.8 [facility] Comment on above: Performed By: #### A NITESH, ALC, MORPH, ACETA, CBC, LIP, ADIFF, TROPHS, MG, MDW, CMP, NICOLLE, GFR #### [address] [address] Albumin/Globulin [Mass ratio] 0.6 {ratio} Low 1.1-2.5 [facility] Comment on above: Performed By: #### A NITESH, ALC, MORPH, ACETA, CBC, LIP, ADIFF, TROPHS, MG, MDW, CMP, NICOLLE, GFR #### [place] [address] ALP [Catalytic activity/Vol] 105 U/L Normal 40-135 [facility] Comment on above: Performed By: #### A NITESH, ALC, MORPH, ACETA, CBC, LIP, ADIFF, TROPHS, MG, MDW, CMP, NICOLLE, GFR #### [place] [address] ALT [Catalytic activity/Vol] 19 U/L Normal 16-63 [facility] Comment on above: Performed By: #### A NITESH, ALC, MORPH, ACETA, CBC, LIP, ADIFF, TROPHS, MG, MDW, CMP, NICOLLE, GFR #### [place] [address] AST [Catalytic activity/Vol] 45 U/L High 10-40 [facility] Comment on above: Performed By: #### A NITESH, ALC, MORPH, ACETA, CBC, LIP, ADIFF, TROPHS, MG, MDW, CMP, NICOLLE, GFR #### [place] [address] Bili Total 0.2 mg/dL Normal 0.2-1.0 [facility] Comment on above: Result Comment: Use of this assay is not recommended for patients undergoing treatment with eltrombopag due to the potential for falsely elevated results. Performed By: #### A NITESH, ALC, MORPH, ACETA, CBC, LIP, ADIFF, TROPHS, MG, MDW, CMP, NICOLLE, GFR #### [place] [address] BUN/Creatinine Ratio 9 ratio Normal 7-27 [facility] Comment on above: Performed By: #### A NITESH, ALC, MORPH, ACETA, CBC, LIP, ADIFF, TROPHS, MG, MDW, CMP, NICOLLE, GFR #### [place] [id number] Calcium [Mass/Vol] 7.9 mg/dL Low 8.4-10.2 [facility] Comment on above: Performed By: #### A NITESH, ALC, MORPH, ACETA, CBC, LIP, ADIFF, TROPHS, MG, MDW, CMP, NICOLLE, GFR #### [address] [address] Chloride [Moles/Vol] 103 mmol/L Normal 98-107 [facility] Comment on above: Performed By: #### A NITESH, ALC, MORPH, ACETA, CBC, LIP, ADIFF, TROPHS, MG, MDW, CMP, NICOLLE, GFR #### [place] [address] CO2 [Moles/Vol] 36 mmol/L High 23-31 [facility] Comment on above: Performed By: #### A NITESH, ALC, MORPH, ACETA, CBC, LIP, ADIFF, TROPHS, MG, MDW, CMP, NICOLLE, GFR #### [address] [address] Creatinine [Mass/Vol] 1.42 mg/dL High 0.70-1.30 [facility] Comment on above: Result Comment: Test ing performed on Siemens Dimension EXL analyzer using a modified kinetic Michael technique. Performed By: #### A NITESH, ALC, MORPH, ACETA, CBC, LIP, ADIFF, TROPHS, MG, MDW, CMP, NICOLLE, GFR #### [place] [address] Electrolyte Balance 5.0 mEq/L Normal 4.0-15.0 [facility] Comment on above: Performed By: #### A NITESH, ALC, MORPH, ACETA, CBC, LIP, ADIFF, TROPHS, MG, MDW, CMP, NICOLLE, GFR #### [place] [address] Globulin 3.2 G/dL Normal [facility] Comment on above: Performed By: #### A NITESH, ALC, MORPH, ACETA, CBC, LIP, ADIFF, TROPHS, MG, MDW, CMP, NICOLLE, GFR #### [address] [address] Glucose [Mass/Vol] 141 mg/dL High 80-115 [facility] Comment on above: Performed By: #### A NITESH, ALC, MORPH, ACETA, CBC, LIP, ADIFF, TROPHS, MG, MDW, CMP, NICOLLE, GFR #### [address] [address] Potassium [Moles/Vol] 3.5 mmol/L Normal 3.5-5.1 [facility] Comment on above: Performed By: #### A NITESH, ALC, MORPH, ACETA, CBC, LIP, ADIFF, TROPHS, MG, MDW, CMP, NICOLLE, GFR #### [address] [address] Sodium [Moles/Vol] 144 mmol/L Normal 136-145 [facility] Comment on above: Performed By: #### A NITESH, ALC, MORPH, ACETA, CBC, LIP, ADIFF, TROPHS, MG, MDW, CMP, NICOLLE, GFR #### [address] [address] Total Protein 5.1 G/dL Low 6.4-8.2 [facility] Comment on above: Performed By: #### A NITESH, ALC, MORPH, ACETA, CBC, LIP, ADIFF, TROPHS, MG, MDW, CMP, NICOLLE, GFR #### [address] [address] Urea nitrogen [Mass/Vol] 13 mg/dL Normal 7-18 [facility] Comment on above: Performed By: #### A NITESH, ALC, MORPH, ACETA, CBC, LIP, ADIFF, TROPHS, MG, MDW, CMP, NICOLLE, GFR #### [address] [address] [address] ABD/PELVIS W/ IV CONTRAST ONLYon 10-30-2023 [...] 10/30/2023 5:39:58 PM Ordering Provider: ANN-MARIE DILLON [facility] CT HEAD OR BRAIN W/O SHAWN [place] [...] 10/30/2023 5:19:12 PM Ordering Provider: ANN-MARIE White [facility]ORY[facility]dered By: Jaspal Calix on 10-30-2023 Amphetamines [...] ng/L Male: 0-76 ng/L Testing performed on [employer] using a homogeneous sandwich chemiluminescent immunoassay based on [employer] technology. Urea nitrogen [Mass/Vol] 13 mg/dL Normal 7 - 18 mg/dL AO ADM SS Urea nitrogen/Creatinine [Mass ratio] 9 ratio Normal 7 - 27 ratio AO ADM SS WBC (Bld) [#/Vol] 5.3 103/mcL Normal 4.5 - 10.8 10^3/mcL AO Workflow SS LIPon 10-30-2023 Lipase Level <6 Low 16-77 [facility] Comment on above: Performed By: #### A NITESH, ALC, MORPH, ACETA, CBC, LIP, ADIFF, TROPHS, MG, MDW, CMP, NICOLLE, GFR #### [address] [address] MGon 10-30-2023 Magnesium [Mass/Vol] 1.9 mg/dL Normal 1.8-2.4 [facility] Comment on above: Performed By: #### A NITESH, ALC, MORPH, ACETA, CBC, LIP, ADIFF, TROPHS, MG, MDW, CMP, NICOLLE, GFR #### [address] [address] SALon 10-30-2023 Salicylate Level 12.1 mg/dL Normal 2.8-20.0 [facility] Comment on above: Performed By: #### A NITESH, ALC, MORPH, ACETA, CBC, LIP, ADIFF, TROPHS, MG, MDW, CMP, NICOLLE, GFR #### [address] [address] TROPHSon 10-30-2023 High Sensitivity Troponin I 26 ng/L Normal 0-76 [facility] Comment on above: Result Comment: High Sensitive Troponin I Reference Ranges: Female: 0-51 ng/L Male: 0-76 ng/L Testing performed on [employer] using a homogeneous sandwich chemiluminescent immunoassay based on [employer] technology. Performed By: #### A NITESH, ALC, MORPH, ACETA, CBC, LIP, ADIFF, TROPHS, MG, MDW, CMP, NICOLLE, GFR #### [place] [address] UAon 10-30-2023 Color (U) Yellow Normal [facility] Comment on above: Performed By: #### A NITESH, ALC, MORPH, ACETA, CBC, LIP, ADIFF, TROPHS, MG, MDW, CMP, NICOLLE, GFR #### [place] [address] Glucose (U) [Mass/Vol] 500 mg/dL Abnormal Negative [facility] Comment on above: Performed By: #### A NITESH, ALC, MORPH, ACETA, CBC, LIP, ADIFF, TROPHS, MG, MDW, CMP, NICOLLE, GFR #### [place] [address] Ketones Ql (U) Negative Normal Negative [facility] Comment on above: Performed By: #### A NITESH, ALC, MORPH, ACETA, CBC, LIP, ADIFF, TROPHS, MG, MDW, CMP, NICOLLE, GFR #### [place] [address] UA Appear Clear Normal Clear [facility] Comment on above: Performed By: #### A NITESH, ALC, MORPH, ACETA, CBC, LIP, ADIFF, TROPHS, MG, MDW, CMP, NICOLLE, GFR #### [place] [address] UA Blood Negative Normal Negative [facility] Comment on above: Performed By: #### A NITESH, ALC, MORPH, ACETA, CBC, LIP, ADIFF, TROPHS, MG, MDW, CMP, NICOLLE, GFR #### [place] [address] UA Leuk Est Negative Normal Negative [facility] Comment on above: Performed By: #### A NITESH, ALC, MORPH, ACETA, CBC, LIP, ADIFF, TROPHS, MG, MDW, CMP, NICOLLE, GFR #### [place] [address] UA Nitrite Negative Normal Negative [facility] Comment on above: Performed By: #### A NITESH, ALC, MORPH, ACETA, CBC, LIP, ADIFF, TROPHS, MG, MDW, CMP, NICOLLE, GFR #### [place] [address] UA pH >=9.0 Normal [facility] Comment on above: Performed By: #### A NITESH, ALC, MORPH, ACETA, CBC, LIP, ADIFF, TROPHS, MG, MDW, CMP, NICOLLE, GFR #### [place] [address] UA Protein Negative Normal Negative [facility] Comment on above: Performed By: #### A NITESH, ALC, MORPH, ACETA, CBC, LIP, ADIFF, TROPHS, MG, MDW, CMP, NICOLLE, GFR #### [place] [address] UA Spec Grav 1.015 Normal 1.015-1.025 [facility] Comment on above: Performed By: #### A NITESH, ALC, MORPH, ACETA, CBC, LIP, ADIFF, TROPHS, MG, MDW, CMP, NICOLLE, GFR #### [place] [address] UA Specimen Type Not Given Normal [facility] Comment on above: Performed By: #### A NITESH, ALC, MORPH, ACETA, CBC, LIP, ADIFF, TROPHS, MG, MDW, CMP, NICOLLE, GFR #### [place] [address] UA Urobilinogen 0.2 E.U./dL Normal 0.2-1.0 [facility] Comment on above: Performed By: #### A NITESH, ALC, MORPH, ACETA, CBC, LIP, ADIFF, TROPHS, MG, MDW, CMP, NICOLLE, GFR #### [place] [address] Urobilinogen (U) [Mass/Vol] Negative Normal Negative [facility] Comment on above: Performed By: #### A NITESH, ALC, MORPH, ACETA, CBC, LIP, ADIFF, TROPHS, MG, MDW, CMP, NICOLLE, GFR #### [place] [address] UDRUGon 10-30-2023 Amphetamine (u) Negative Normal Negative [facility] Comment on above: Performed By: #### A NITESH, ALC, MORPH, ACETA, CBC, LIP, ADIFF, TROPHS, MG, MDW, CMP, NICOLLE, GFR #### [place] [address] Barbiturate (u) Negative Normal Negative [facility] Comment on above: Performed By: #### A NITESH, ALC, MORPH, ACETA, CBC, LIP, ADIFF, TROPHS, MG, MDW, CMP, NICOLLE, GFR #### [place] [address] Benzodiazepine (u) Negative Normal Negative [facility] Comment on above: Performed By: #### A NITESH, ALC, MORPH, ACETA, CBC, LIP, ADIFF, TROPHS, MG, MDW, CMP, NICOLLE, GFR #### [place] [address] Cannabinoid (u) Negative Normal Negative [facility] Comment on above: Performed By: #### A NITESH, ALC, MORPH, ACETA, CBC, LIP, ADIFF, TROPHS, MG, MDW, CMP, NICOLLE, GFR #### [place] [address] Cocaine Ql (U) Negative Normal Negative [facility] Comment on above: Performed By: #### A NITESH, ALC, MORPH, ACETA, CBC, LIP, ADIFF, TROPHS, MG, MDW, CMP, NICOLLE, GFR #### [address] [address] Methadone Ql (U) Negative Normal Negative [facility] Comment on above: Performed By: #### A NITESH, ALC, MORPH, ACETA, CBC, LIP, ADIFF, TROPHS, MG, MDW, CMP, NICOLLE, GFR #### [address] [address] Opiate (u) Negative Normal Negative [facility] Comment on above: Performed By: #### A NITESH, ALC, MORPH, ACETA, CBC, LIP, ADIFF, TROPHS, MG, MDW, CMP, NICOLLE, GFR #### [address] [address] PCP (u) Negative Normal Negative [facility] Comment on above: Performed By: #### A NITESH, ALC, MORPH, ACETA, CBC, LIP, ADIFF, TROPHS, MG, MDW, CMP, NICOLLE, GFR #### [place] [address] Urine Drugs screened: See Below Normal [facility] Comment on above: Result Comment: This [...] TROPHS, MG, MDW, CMP, NICOLLE, GFR #### [address] [address] XR CHEST 1 VIEWon 10-30-2023 XR CHEST [...] 10/30/2023 5:23:53 PM Ordering Provider: ANN-MARIE DILLON [facility] CT Abdomen and Pelvis WO con trastOrdered By: [facility] Provider on 10-21-2023 Interpretation and review of laboratory results Abnormal [facility] Radiology Result ACTIONABLE Abnormal [facility] Comment on above: This report contains [...] contact your provider for the next steps. [facility] CT Abdomen and Pelvis WO con traston [...] be communicated with the ordering provider via [employer] staff message or phone message by [facility] within 2 business days of report finalization. --END OF FINDING-- Cardiac Nurse Specialist: PSCB Transcribe Date/Time: Oct 21 2023 3:19P Dictated by : JOSSELIN CASTELAN MD This examination was interpreted and the report reviewed and electronically signed by: JOSSELIN CASTELAN MD on Oct 21 2023 3:31PM [facility] DIVISION OF RADIOLOGY * * *Final Report* * * DATE OF EXAM: Oct 21 2023 2:47PM [facility] 0531 - CT ABD/PEL WO IVCON [...] DATE OF EXAM: Oct 21 2023 2:47PM [facility] 0531 - CT ABD/PEL WO IVCON [...] be communicated with the ordering provider via [employer] staff message or phone message by [facility] within 2 business days of report finalization. --END OF FINDING-- Cardiac Nurse Specialist: SIGRID Transcribe Date/Time: Oct 21 2023 3:19P Dictated by : JOSSELIN CASTELAN MD This examination was interpreted and the report reviewed and electronically signed by: JOSSELIN CASTELAN MD on Oct 21 2023 3:31PM EST [facility] Radiology Study observation (narrative) [facility] 10-17-2023 SAYRA Telephone (KI) ANALILIA MELENDREZ ([id number]) 1960 M Date Time Provider Department 10/17/23 MARIANNA WAGNER During your visit today, we recorded the following information about you: Marianna Wagner APRN.[facility] 10/17/2023 2:34 PM Signed Stool positive [...] the CT. Per conversation with Marianna Wagner ACCOUNT SUPPORT ASSOCIATE advised patient not to change GI appointment, left message for [facility] radiology to move patient's CT appointment. 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 difficile diarrhea [A04.72] E. coli UTI [N39.0, B96.20] Order(s):CONSULT TO HEMATOLOGY [9014] Order #: [id number]: 1 FUTURE vancomycin (VANCOCIN) 125 mg capsuleTake [...] - Blood-Glucose Meter,Continuous (FREESTYLE MANGO 3 READER) [facility] Use to check blood sugar at least [...] tablet by mouth once daily. - Insulin [place], Disposable, (NORBERTO PEN NEEDLE) 32 gauge x [...] (HCC) [I71.9] 08/09/2023 Atherosclerotic heart disease of [place] coronar*01/03/2017 Chronic pancreatitis (HCC) [K86 (more content not included)... Normal [facility] ALBUMIN/CREATININE RATIO, UR INEon 10-16-2023 Albumin DL <= 20 mg/L (U) [Mass/Vol] 135.3 mg/L [facility] Albumin/Creatinine (U) [Mass ratio] 359 mg/g High NINF - 30 mg/g [facility] Comment on above: Adult Male and Femal [...] [Mass/Vol] 37.7 mg/dL 20.0 - 300.0 mg/dL [facility] Interpretation and review of laboratory results Abnormal [facility] Urinalysis complete panel (U )on 10-15-2023 Bacteria uL 1095.3 uL High Negative [facility] Bilirubin Ql (U) Negative Negative [facility] Clarity (Unsp spec) Turbid Abnormal Clear [facility] Color (U) Yellow [facility] Epithelial cells LM.HPF (Urine sed) [#/Area] None Seen /HPF [facility] Glucose Test strip (U) [Mass/Vol] 3+ Abnormal Negative [facility] Hemoglobin Ql (U) 1+ Abnormal Negative [facility] Hyaline casts (Urine sed) [#/Area] 0 /[LPF] 0 /LPF [facility] Interpretation and review of laboratory results Abnormal [facility] Ketones Ql (U) Negative Negative [facility] Leukocyte esterase Test strip Ql (U) 2+ Abnormal Negative [facility] Nitrite Ql (U) Negative Negative [facility] pH (U) 8.0 [pH] NINF - 8.5 [facility] Protein (U) [Mass/Vol] 1+ Abnormal Negative [facility] RBC LM.HPF (Urine sed) [#/Area] 6-10 /HPF Abnormal 0-2 /HPF [facility] Specific gravity (U) [Rel density] 1.020 1.005 - 1.030 [facility] Urobilinogen Ql (U) 0.2 EU/dL 0.2-1.0 EU/dL [facility] WBC LM.HPF (Urine sed) [#/Area] /[HPF] Abnormal 0-5 /HPF [facility] This test was bhavesh lynn and its performance characteristics determined by [facility]'s [facility] Pathology and Laboratory Medicine [place] (-PLMI). It has not been cleared or approved by the FDA. -[facility] is regulated under CLIA as qualified to perform high-complexity testing. This test is used for clinical purposes. It should not be regarded as investigational or for research. [facility] CNOVon 10-14-2023 CNOV Office Visit (AGFAMP OVIDIO) ANALILIA MELENDREZ ([id number]) 1960 M Date Time Provider Department 10/14/23 11:20 AM MARIANNA WAGNER During your visit today, we recorded the following information about you: Temperature Pulse Respiration Blood pressure 97.6 degrees 60/minute 18/minute 122/70 Weight Height 61.2 kg 1.803 m Marianna Wagner APRN.ACCOUNT SUPPORT ASSOCIATE 10/19/2023 1:25 PM Addendum CHIEF COMPLAINT: Analilia [...] lbs. Was 165 lbs prior to the [facility] in June. Has frequent nausea and vomiting. Has a low appetite Unsure of what his last A1C was BS are either really high or low. Has a freestyle mango. Taking Lantus insulin. No meal time insulin. Taking Farxiga and Metformin (has been on that for awhile). 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 States he either had a seizure or stroke and was placed in the hospital and then went to a [facility] for 5 weeks. 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 Started smoking [...] No date: Anxiety No date: Aortic aneurysm ([facility]) Comment: S/P Repair No date: Aortic aneurysm ([facility]) No date: Aortic valve disorder Comment: S/P Replacement No date: CAD (coronary artery disease) Comment: nonobstructive No date: Coronary artery disease No date: Depression No date: Diabetes mellitus, type II ([facility]) Comment: Insulin dependent No date: Hx of ascending aorta repair No date: Hyperlipidemia No date: Hypertension No date: Non-ST elevation MA (NSTEMI) ([facility]) Comment: 06/24 No date: NSTEMI (non-ST elevated myocardial infarction) ([facility]) No date: Pacemaker No date: Pacemaker No date: Paroxysmal atrial fibrillation ([facility]) No date: RBBB (right bundle branch block) No date: S/P aortic valve replacement Comment: 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 Normal [facility] Hemoccult Stl Ql IAon 2023 Lower GI hemoglobin IA Ql (Stl) Negative Normal Negative [facility] Comment on above: Order Comment: Speci men Type: STOOL SPECIMENOrdering Facility: [facility] Address: [address] [place] [address] Performed By: #### 2 9771-3 ####[facility] LABCLIA [id number] [place] [address] [place] O+P Spec Microon 10-14-2023 Ova and parasites identified LM Nom (Unsp spec) OVA AND PARASITE EXAM: No Parasites Seen Normal [facility] Comment on above: Performed By: #### 6 73-4 ####[facility] LABCLIA [id number] [address] OF [place] CNPChanel 10-07-2023 STEPHANIEN Telephone (KI) ANALILIA MELENDREZ ([id number]) 1960 M Date Time Provider Department 10/07/23 MARIANNA WAGNER During your visit today, we recorded the following information about you: Marianna Wagner APRN.ACCOUNT SUPPORT ASSOCIATE 10/07/2023 11:31 AM Signed Hgb has decreased [...] Date Reviewed: 08/09/2023 Reviewed by: Marianna Wagner APRN.ACCOUNT SUPPORT ASSOCIATE - Fully Assessed Reason for Visit: Results [95] Orders [681] Primary Visit Diagnosis:Anemia, unspecified type [D64.9] Other Visit Diagnosis:Chronic diarrhea [K52.9] Order(s):IRON AND TIBC [SQIRON] Order #: [id number] FUTURE FERRITIN [SQFERR] Order #: [id number] FUTURE FOLATE, SERUM [SQSERFOL] Order #: [id number] FUTURE VITAMIN B12 [SQB12] Order #: [id number] FUTURE COMPLETE BLOOD COUNT AND DIFFERENTIAL [SQCBCDIF] Order #: [id number] FUTURE COMPREHENSIVE METABOLIC PANEL [SQCMP] Order #: [id number] FUTURE Prescriptions as of 10/19/2023 - vancomycin [...] - Blood-Glucose Meter,Continuous (FREESTYLE MANGO 3 READER) [facility] Use to check blood sugar at least [...] tablet by mouth once daily. - Insulin [place], Disposable, (NORBERTO PEN NEEDLE) 32 gauge x [...] (HCC) [I71.9] 08/09/2023 Atherosclerotic heart disease of [place] coronar*01/03/2017 Chronic pancreatitis (HCC) [K86.1] 08/09/2023 Calcium [...] attack) [Z8 (more content not included)... Normal [facility] Catia 09-24-2023 SAYRA Telephone (AGFAMPLE) ANALILIA MELENDREZ ([id number]) 1960 M Date Time Provider Department 09/24/23 [...] the restroom. States he was in a [facility] 6 weeks ago because of a seizure and the doctor in the [facility] had him on Tramadol for his stomach [...] anyway. Please advise. FLORENTINO Jackson Brittny A, APRN.ACCOUNT SUPPORT ASSOCIATE 09/24/2023 10:01 AM Signed I would like [...] too. I also placed some lab orders. 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 He is going to try and go to [facility] to complete labs and stool study Giulia Rogel MA Allergies As of Date: 09/24/2023 (No Known Allergies) Date Reviewed: 08/09/2023 Reviewed by: Marianna Wagner APRN.ACCOUNT SUPPORT ASSOCIATE - Fully Assessed Reason for Visit: Patient Question [1477] Primary Visit Diagnosis:Diarrhea of presumed infectious origin [R19.7] Other Visit Diagnosis:Generalized abdominal pain [R10.84] Order(s):OVA + PARA MICROSCOPIC [SQOVAP] Order #: [id number]. #:[id number] IMMUNOCHEMICAL FECAL OCCULT BLOOD TEST [SQIFOBT] Order #: [id number]. #:[id number] CRYPTOSPORIDIUM AND GIARDIA ANTIGENS BY EIA [SQOVAPSC] Order #: [id number] FUTURE C. DIFFICILE PCR [SQCDPCR] Order #: [id number] FUTURE CONSULT TO GASTROENTEROLOGY [9010] Order #: [id number]: 1 FUTURE COMPLETE BLOOD COUNT AND DIFFERENTIAL [SQCBCDIF] Order #: [id number] FUTURE COMPREHENSIVE METABOLIC PANEL [SQCMP] Order #: [id number] FUTURE Prescriptions as of 09/24/2023 - Blood-Glucose Meter,Continuous (FREESTYLE MANGO 3 READER) [facility] Use to check blood sugar at least [...] tablet by mouth once daily. - Insulin [place], Disposable, (NORBERTO PEN NEEDLE) 32 gauge x [...] thrombocytopenia [D69.5 (more content not included)... Normal [facility] 09-13-2023 SAYRA Telephone (AGFAMPLE) ANALILIA MELENDREZ ([id number]) 1960 M Date Time Provider Department 09/13/23 [...] Date Reviewed: 08/09/2023 Reviewed by: Marianna Wagner APRN.ACCOUNT SUPPORT ASSOCIATE - Fully Assessed Reason for Visit: Patient Update [1234] Prescriptions as of 09/14/2023 - Blood-Glucose Meter,Continuous (FREESTYLE MANGO 3 READER) [facility] Use to check blood sugar at least [...] tablet by mouth once daily. 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) [Z79.4]01/03/2017 Pansystolic murmur [R01.1] 08/09/2023 Unspecified severe protein-calorie malnutrition*05/20/2023 Encounter Status:Closed by YESSICA UMANA on 09/13/23 [facility] 08-20-2023 SAYRA Telephone (AGFAMPLE) ANALILIA MELENDREZ ([id number]) 1960 M Date Time Provider Department 08/20/23 MARIANNA WAGNER During your visit today, we recorded the following information about you: Giulia Rogel MA 08/20/2023 10:45 AM Signed Patient called he would like an order for freestyle mango FLORENTINO Cerrato Julie, MA 08/23/2023 11:44 AM Signed Patient called again requesting a refill FLORENTINO Cerrato Brittny A, APRN.ACCOUNT SUPPORT ASSOCIATE 08/29/2023 2:43 PM Signed Order for Freestyle Mango sent into pharmacy. Marianna Wagner APRN.CNP 08/29/2023 2:43 PM Signed Addended by: MARIANNA WAGNER on: 08/29/2023 02:43 PM Modules accepted: Orders Andrew PonceFLORENTINO 08/30/2023 2:11 PM Signed Patient aware. Andrew Ponce MA Allergies As of Date: 08/20/2023 (No Known Allergies) Date Reviewed: 08/09/2023 Reviewed by: Marianna Wagner APRN.ACCOUNT SUPPORT ASSOCIATE - Fully Assessed Reason for Visit: Patient [...] tablet by mouth once daily. - Insulin [place], Disposable, (NORBERTO PEN NEEDLE) 32 gauge x [...] (HCC) [I71.9] 08/09/2023 Atherosclerotic heart disease of [place] coronar*01/03/2017 Chronic pancreatitis (HCC) [K86.1] 08/09/2023 Calcium [...] Left ve (more content not included)... Normal [facility] CNPNon 08-16-2023 CNPN Telephone (OSCARFAMPLE) ANALILIA MELENDREZ ([id number]) 1960 M Date Time Provider Department 08/16/23 MARIANNA WAGNER During your visit today, we recorded the following information about you: Andrew Ponce MA 08/16/2023 2:21 PM Signed ----- Message from Marianna Wagner APRN.ACCOUNT SUPPORT ASSOCIATE sent at 08/16/2023 2:14 PM EDT ----- A1C has improved to 6.8 which is considered controlled. Continue current medications. Recheck in 6 months. Andrew Ponce MA 08/16/2023 2:21 PM Signed Pt. Notified. Reminder placed. Andrew SaenzminhjaniFLORENTINO Allergies As of Date: 08/16/2023 (No Known Allergies) Date Reviewed: 08/09/2023 Reviewed by: Marianna Wagner APRN.ACCOUNT SUPPORT ASSOCIATE - Fully Assessed Reason for Visit: Results [...] tablet by mouth once daily. 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) [Z79.4]01/03/2017 Pansystolic murmur [R01.1] 08/09/2023 Unspecified severe protein-calorie malnutrition*05/20/2023 Encounter Status:Closed by ANDREW PONCE on 08/16/23 Normal [facility] Bacteria identified Cx Nom ( U)Ordered By: Franco Robbins on 08-12-2023 Interpretation and review of laboratory results Abnormal [facility] URINE CULTUREOrdered By: Col brielle Robbins on 08-12-2023 Bacteria identified Cx Nom (U) >=100,000 CFU/ml Escherichia coli Abnormal [facility] CNPNon 08-11-2023 STEPHANIEN Telephone (KI) ANALILIA MELENDREZ ([id number]) 1960 M Date Time Provider Department 08/11/23 MARIANNA WAGNER During your visit today, we recorded the following information about you: Marianna Wagner APRN.ACCOUNT SUPPORT ASSOCIATE 08/11/2023 6:19 PM Signed Please notify that [...] Lisinopril. Will forward this to home care aide since he is a complicated case. Suzi Haynes MA 08/13/2023 9:28 AM Signed Patient informed of results, recommendations and scripts sent in. Patient states he [facility] not use [facility] he uses [facility] in [place] and would like scripts resent. Also patient states he does not take any supplements with vitamin B12. Please advise. Suzi Haynes MA Allergies As of Date: 08/11/2023 (No Known Allergies) Date Reviewed: 08/09/2023 Reviewed by: Marianna Wagner APRN.ACCOUNT SUPPORT ASSOCIATE - Fully Assessed Reason for Visit: Results [95] Primary Visit Diagnosis:Anemia, unspecified type [D64.9] Order(s):IMMUNOCHEMICAL FECAL OCCULT BLOOD TEST [SQIFOBT] Order #: [id number]. #:[id number] cephALEXin (KEFLEX) 500 mg capsuleTake 1 capsule [...] tablet by mouth once daily. 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 Normal [facility] 25-hydroxyvitamin D3 [Mass/V ol]on 08-10-2023 Interpretation and review of laboratory results Abnormal [facility] Cobalamin (Vitamin B12) [Mas s/Vol]on 08-10-2023 Interpretation and review of laboratory results Abnormal [facility] FERRITINon 08-10-2023 Ferritin [Mass/Vol] 561.0 ng/mL 30.3 - 5 65.7 ng/mL [facility] FOLATE, SERUMon 08-10-2023 Folate [Mass/Vol] 19.5 ng/mL 4.7 - PINF ng/mL [facility] Folate [Mass/Vol]on 08-10-19 Interpretation and review of laboratory results Normal [facility] HIV 1+2 Ab IA Qlon HIV 1 and 2 Ab IA.rapid Nom (S/P/Bld) [facility] Comment on above: Test not indicated. HIV 1+2 Ab+HIV1 p24 Ag IA Ql Non-Reactive Nonreactive [facility] Comment on above: [place] Rev. Code 3701. 243(E): This information has [...] for this assay has moved from Siemens Snapflowaur XP to [employer]ari perri 8000 effective November 11, 2021. Please note there may be a change in the reporting units and/or reference range. HIV immunoassay testing algorithm interpretation (S/P/Bld) [Interp] [facility] Comment on above: No evidence of HIV-1 or HIV-2 infection. Should recent infection be suspected, repeat testing may be considered 2-3 weeks after this draw. Iron and Iron binding capaci ty panelon 08-10-2023 Interpretation and review of laboratory results Abnormal [facility] Iron [Mass/Vol] 108 ug/dL 41 - 186 ug/dL [facility] Iron binding capacity [Mass/Vol] ug/dL Low 232 - 386 ug/dL [facility] Iron saturation [Mass fraction] % High 15.0 - 57.0 % [facility] No Panel Informationon 08-09 [facility] Interpretation and review of laboratory results Normal [facility] PSA/PROSTATE SPECIFIC ANTIGE N SCREENINGon 08-10-2023 Prostate specific Ag [Mass/Vol] 0.78 ng/mL NINF - 2.60 ng/mL [facility] Comment on above: Total PSA test metho dology used is the Electrochemiluminescence Immunoassay by [employer]. Total PSA values by differing methodologies cannot be interchanged. VITAMIN B12on 08-10-2023 Cobalamin (Vitamin B12) [Mass/Vol] 1523 pg/mL High 232 - 1245 pg/mL [facility] VITAMIN D 25 HYDROXYon 08-09 25-hydroxyvitamin D3 [Mass/Vol] 24.0 ng/mL Low 30.0 - PINF ng/mL [facility] Comment on above: Classification of 25 [place] Vitamin D status: Deficiency: <= 20.0 ng/ml. Insufficiency: 21.0-29.0 ng/ml. Sufficiency: >= 30.0 ng/ml. 25(OH)D3 SerPl-mCncon 2023 25-hydroxyvitamin D3 [Mass/Vol] 24.0 ng/mL Low >=30.0 [facility] Comment on above: Order Comment: Gini nowak Type: BLOOD SPECIMENOrdering Facility: [facility] Address: [address], [place] [address] Result Comment: Clas sification of 25 [place] Vitamin D status: Deficiency: <= 20.0 ng/ml. Insufficiency: 21.0-29.0 ng/ml. Sufficiency: >= 30.0 ng/ml. Performed By: #### 1 989-3 ####[facility] LABORATORYCLIA [id number] [place] [address] [place] Bacteria Ur Culton [...] , Intermediate >32 , Resistant >64 Abnormal [facility] Comment on above: Performed By: #### 6 30-4 ####[facility] LABORATORYCLIA [id number] [place] [address] [place] CBC W Auto Differential pane l (Bld)on 08-09-2023 Basophils (Bld) [#/Vol] 0.03 10*3/uL [facility] Basophils/100 WBC (Bld) 0.5 % [facility] Differential cell count method Nom (Bld) Auto [facility] Eosinophils (Bld) [#/Vol] 0.04 10*3/uL [facility] Eosinophils/100 WBC (Bld) 0.6 % [facility] Erythrocyte distribution width (RBC) [Ratio] 15.9 % High 11.5 - 15.0 % [facility] Hematocrit (Bld) [Volume fraction] 35.0 % Low 39.0 - 51.0 % [facility] Hemoglobin (Bld) [Mass/Vol] 11.4 g/dL Low 13.0 - 17.0 g/dL [facility] Immature granulocytes (Bld) [#/Vol] [facility] Immature granulocytes/100 WBC (Bld) 0.2 % [facility] Interpretation and review of laboratory results Abnormal [facility] Lymphocytes (Bld) [#/Vol] 1.31 10*3/uL [facility] Lymphocytes/100 WBC (Bld) 21.0 % [facility] MCH (RBC) [Entitic mass] 35.4 pg High 26.0 - 34.0 pg [facility] MCHC (RBC) [Mass/Vol] 32.6 g/dL 30.5 - 36.0 g/dL [facility] MCV (RBC) [Entitic vol] 108.7 fL High 80.0 - 100.0 fL [facility] Monocytes (Bld) [#/Vol] 0.57 10*3/uL NINF [facility] Monocytes/100 WBC (Bld) 9.1 % [facility] Neutrophils (Bld) [#/Vol] 4.29 10*3/uL [facility] Neutrophils/100 WBC (Bld) 68.6 % [facility] Nucleated RBC (Bld) [#/Vol] [facility] Nucleated RBC/100 WBC (Bld) [Ratio] [facility] Platelet mean volume (Bld) [Entitic vol] 10.4 fL 9.0 - 12.7 fL [facility] Platelets (Bld) [#/Vol] 195 10*3/uL [facility] RBC (Bld) [#/Vol] 3.22 10*6/uL Low 4.20 - 6.0 0 m/uL [facility] WBC (Bld) [#/Vol] 6.25 10*3/uL [facility] Basophils (Bld) [#/Vol] 0.03 10*3/uL Normal <0.11 [facility] Comment on above: Order Comment: Speci men Type: BLOOD SPECIMENOrdering Facility: [facility] Address: [address] [place] [address] Performed By: #### 5 7021-8 ####[facility] LABCLIA [id number] [address]#### 41948-2 ####[facility] LABCLIA [id number] [address] STATES OF [facility] Basophils/100 WBC (Bld) 0.5 % Normal [facility] Comment on above: Order Comment: Speci men Type: BLOOD SPECIMENOrdering Facility: [facility] Address: [address] [place] [address] Performed By: #### 5 7021-8 ####[facility] LABCLIA [id number] [address] [place]#### 70974-5 ####[facility] LABCLIA [id number] [place] [address] [place] Differential cell count method Nom (Bld) Auto Normal [facility] Comment on above: Order Comment: Speci men Type: BLOOD SPECIMENOrdering Facility: [facility] Address: [address] [place] [address] Performed By: #### 5 7021-8 ####[facility] LABCLIA [id number] [place] [address] [place]#### 29008-2 ####[facility] LABCLIA [id number] [place] [address] [place] Eosinophils (Bld) [#/Vol] 0.04 10*3/uL Normal <0.46 [facility] Comment on above: Order Comment: Speci men Type: BLOOD SPECIMENOrdering Facility: [facility] Address: [address] [place] [address] Performed By: #### 5 7021-8 ####[facility][1]I LABCLIA [id number] [place] [address] [place]#### 75076-5 ####[facility] LABCLIA [id number] [address] [place] Eosinophils/100 WBC (Bld) 0.6 % Normal [facility] Comment on above: Order Comment: Speci men Type: BLOOD SPECIMENOrdering Facility: [facility] Address: [address] [place] [address] Performed By: #### 5 7021-8 ####[facility] LABCLIA [id number] [place] [address] [place]#### 76327-8 ####[facility] LABCLIA [id number] [place] [address] [place] Erythrocyte distribution width (RBC) [Ratio] 15.9 % High 11.5-15.0 [facility] Comment on above: Order Comment: Speci men Type: BLOOD SPECIMENOrdering Facility: [facility] Address: [address] [place] [address] Performed By: #### 5 7021-8 ####[facility][1]I LABCLIA [id number] [place] [address] [place]#### 14526-2 ####[facility] LABCLIA [id number] [place] [address] [place] Hematocrit (Bld) [Volume fraction] 35.0 % Low 39.0-51.0 [facility] Comment on above: Order Comment: Speci men Type: BLOOD SPECIMENOrdering Facility: [facility] Address: [address] [place] [address] Performed By: #### 5 7021-8 ####[facility][1]I LABCLIA [id number] [place] [address] [place]#### 14246-5 ####[facility] LABCLIA [id number] [place] [address] [place] Hemoglobin (Bld) [Mass/Vol] 11.4 g/dL Low 13.0-17.0 [facility] Comment on above: Order Comment: Speci men Type: BLOOD SPECIMENOrdering Facility: [facility] Address: [address] [place] [address] Performed By: #### 5 7021-8 ####[facility] LABCLIA [id number] [place] [address] [place]#### 78171-6 ####[facility] LABCLIA [id number] [place] [address] [place] Immature granulocytes (Bld) [#/Vol] 10*3/uL Normal <0.10 [facility] Comment on above: Order Comment: Speci men Type: BLOOD SPECIMENOrdering Facility: [facility] Address: [address] [place] [address] Performed By: #### 5 7021-8 ####[facility] LABCLIA [id number] [place] [address] [place]#### 92192-0 ####[facility] LABCLIA [id number] [place] [address] [place] Immature granulocytes/100 WBC (Bld) 0.2 % Normal [facility] Comment on above: Order Comment: Speci men Type: BLOOD SPECIMENOrdering Facility: [facility] Address: [address] [place] [address] Performed By: #### 5 7021-8 ####[facility] LABCLIA [id number] [place] [address] [place]#### 42689-5 ####[facility] LABCLIA [id number] [place] [address] [place] Lymphocytes (Bld) [#/Vol] 1.31 10*3/uL Normal 1.00-4.00 [facility] Comment on above: Order Comment: Speci men Type: BLOOD SPECIMENOrdering Facility: [facility] Address: [address] [place] [address] Performed By: #### 5 7021-8 ####[facility] LABCLIA [id number] [place] [address] [place]#### 62809-5 ####[facility] LABCLIA [id number] [place] [address] [place] Lymphocytes/100 WBC (Bld) 21.0 % Normal [facility] Comment on above: Order Comment: Speci men Type: BLOOD SPECIMENOrdering Facility: [facility] Address: [address] [place] [address] Performed By: #### 5 7021-8 ####[facility] LABCLIA [id number] [place] [address] [place]#### 09221-3 ####[facility] LABCLIA [id number] [place] [address] [place] MCH (RBC) [Entitic mass] 35.4 pg High 26.0-34.0 [facility] Comment on above: Order Comment: Speci men Type: BLOOD SPECIMENOrdering Facility: [facility] Address: [address] [place] [address] Performed By: #### 5 7021-8 ####[facility] LABCLIA [id number] [place] [address] [place]#### 56042-9 ####[facility] LABCLIA [id number] [place] [address] [place] MCHC (RBC) [Mass/Vol] 32.6 g/dL Normal 30.5-36.0 [facility] Comment on above: Order Comment: Speci men Type: BLOOD SPECIMENOrdering Facility: [facility] Address: [address] [place] [address] Performed By: #### 5 7021-8 ####[facility] LABCLIA [id number] [address] [place]#### 38306-4 ####[facility] LABCLIA [id number] [address] [place] MCV (RBC) [Entitic vol] 108.7 fL High 80.0-100.0 [facility] Comment on above: Order Comment: Speci men Type: BLOOD SPECIMENOrdering Facility: [facility] Address: [address] [place] [address] Performed By: #### 5 7021-8 ####[facility] LABCLIA [id number] [place] [address] [place]#### 26925-6 ####[facility] LABCLIA [id number] [place] [address] [place] Monocytes (Bld) [#/Vol] 0.57 10*3/uL Normal <0.87 [facility] Comment on above: Order Comment: Speci men Type: BLOOD SPECIMENOrdering Facility: [facility] Address: [address] [place] [address] Performed By: #### 5 7021-8 ####[facility] LABCLIA [id number] [place] [address] [place] [place]#### 50974-4 ####[facility] LABCLIA [id number] [place] [address] [place] Monocytes/100 WBC (Bld) 9.1 % Normal [facility] Comment on above: Order Comment: Speci men Type: BLOOD SPECIMENOrdering Facility: [facility] Address: [address] [place] [address] Performed By: #### 5 7021-8 ####[facility][1]I LABCLIA [id number] [place] [address] [place]#### 89307-8 ####[facility] LABCLIA [id number] [place] [address] [place] Neutrophils (Bld) [#/Vol] 4.29 10*3/uL Normal 1.45-7.50 [facility] Comment on above: Order Comment: Speci men Type: BLOOD SPECIMENOrdering Facility: [facility] Address: [address] [place] [address] Performed By: #### 5 7021-8 ####[facility] [place] LABCLIA [id number] [place] [address] [place]#### 39598-6 ####[facility] LABCLIA [id number] [place] [address] [place] Neutrophils/100 WBC (Bld) 68.6 % Normal [facility] Comment on above: Order Comment: Speci men Type: BLOOD SPECIMENOrdering Facility: [facility] Address: [address] [place] [address] Performed By: #### 5 7021-8 ####[facility] [place] LABCLIA [id number] [place] [address] [place]#### 46624-4 ####[facility] LABCLIA [id number] [place] [address] [place] Nucleated RBC (Bld) [#/Vol] Normal [facility] Comment on above: Order Comment: Speci men Type: BLOOD SPECIMENOrdering Facility: [facility] Address: [address] [place] [address] Performed By: #### 5 7021-8 ####[facility][1]I LABCLIA [id number] [place] [address] [place]#### 31072-0 ####[facility] LABCLIA [id number] [place] [address] [place] Nucleated RBC/100 WBC (Bld) [Ratio] Normal [facility] Comment on above: Order Comment: Speci men Type: BLOOD SPECIMENOrdering Facility: [facility] Address: [address] [place] [address] Performed By: #### 5 7021-8 ####[facility][1]I LABCLIA [id number] [place] [address] [place]#### 21252-9 ####[facility] LABCLIA [id number] [place] [address] [place] Platelet mean volume (Bld) [Entitic vol] 10.4 fL Normal 9.0-12.7 [facility] Comment on above: Order Comment: Speci men Type: BLOOD SPECIMENOrdering Facility: [facility] Address: [address] [place] [address] Performed By: #### 5 7021-8 ####[facility] [place] LABCLIA [id number] [place] [address] [place]#### 22921-5 ####[facility] LABCLIA [id number] [place] [address] [place] Platelets (Bld) [#/Vol] 195 10*3/uL Normal 150-400 [facility] Comment on above: Order Comment: Speci men Type: BLOOD SPECIMENOrdering Facility: [facility] Address: [facility] [place] [address] Performed By: #### 5 7021-8 ####[facility][1]I LABCLIA [id number] [place] [address] [place]#### 00000-9 ####[facility] LABCLIA [id number] [place] [address] [place] RBC (Bld) [#/Vol] 3.22 10*6/uL Low 4.20-6.00 [facility] Comment on above: Order Comment: Speci men Type: BLOOD SPECIMENOrdering Facility: [facility] Address: [facility] [place] [address] Performed By: #### 5 7021-8 ####[facility] [place] LABCLIA [id number] [place] [address] [place] [facility]#### 10837-7 ####[facility] LABCLIA [id number] [place] [address] [place] WBC (Bld) [#/Vol] 6.25 10*3/uL Normal 3.70-11.00 [facility] Comment on above: Order Comment: Speci men Type: BLOOD SPECIMENOrdering Facility: [facility] Address: [address] [place] [address] Performed By: #### 5 7021-8 ####[facility] LABIA [id number] [place] [address] [place]#### 32828-5 ####[facility] LABCLIA [id number] [facility] [id number] [address] [place] CNOVon 08-09-2023 CNOV Office Visit (AGFAMP LE) ANALILIA MELENDREZ ([id number]) 1960 M Date Time Provider Department 08/09/23 1:20 PM MARIANNA WAGNER During your visit today, we recorded the following information about you: Temperature Pulse Blood pressure Weight 99 degrees 98/minute 122/76 63 kg Height 1.803 m Marianna Wagner APRN.ACCOUNT SUPPORT ASSOCIATE 08/13/2023 12:57 PM Signed [facility] Marianna Wagner LOCAL AREA NETWORK ADMINISTRATOR-ACCOUNT SUPPORT ASSOCIATE [address] [place] [address] Dept Dept. Visit Date: August 09, 2023 Mr.Steven Melendrez Date of : 1960 MRN/E #: [id number] Chief Complaint: Patient presents with: Establish Care: Previous pt. Of dr. [facility] at [facility]. Think he may have a seizure or stoke. Went to [facility]. (Alexy shaffern in [place]) [...] lbs. Was 165 lbs prior to the [facility] in June. Has frequent nausea and vomiting. Has a low appetite Unsure of what his last A1C was BS are either really high or low. Has a freestyle mango. Taking Lantus insulin. No meal time insulin. Taking Farxiga and Metformin (has been on that for awhile). 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 States he either had a seizure or stroke and was placed in the hospital and then went to a [facility] for 5 weeks. 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 Started smoking [...] ascending aorta repair Hyperlipidemia Hypertension Non-ST elevation MA (NSTEMI) (HCC) 06/24 NSTEMI (non-ST elevated myocardial [...] Coronary Artery (more content not included)... Normal [facility] Comprehensive metabolic 2000 panelon 08-09-2023 Albumin [Mass/Vol] 2.7 g/dL Low 3.9 - 4.9 g/dL [facility] ALP [Catalytic activity/Vol] 211 U/L High 38 - 113 U/L [facility] ALT With P-5'-P [Catalytic activity/Vol] 53 U/L 10 - 54 U/L [facility] Anion gap [Moles/Vol] 13 mmol/L 8 - 15 mmol/L [facility] AST With P-5'-P [Catalytic activity/Vol] 179 U/L High 14 - 40 U/L [facility] Bilirubin [Mass/Vol] 0.5 mg/dL 0.2 - 1 .3 mg/dL [facility] Calcium [Mass/Vol] 8.3 mg/dL Low 8.5 - 10. 2 mg/dL [facility] Chloride [Moles/Vol] 99 mmol/L 98 - 10 7 mmol/L [facility] CO2 [Moles/Vol] 30 mmol/L 22 - 30 mmol/L [facility] Creatinine [Mass/Vol] 1.36 mg/dL High 0.73 - 1.22 mg/dL [facility] GFR/1.73 sq M.predicted among non-blacks MDRD (S/P/Bld) [Vol rate/Area] 59 mL/min/{1.73_m2} Low - PINF [facility] Comment on above: Estimated Glomerular Filtration Rate [...] 165 mg/dL High 74 - 99 mg/dL [facility] Comment on above: The [place] Diabete s Association (ADA) provides guidance for [...] Standards of Medical Care in Diabetes 2016, [place] Diabetes Association. Diabetes Care. 2016.39(Suppl 1). Potassium [Moles/Vol] 4.7 mmol/L 3.7 - 5.1 mmol/L [facility] Protein [Mass/Vol] 6.6 g/dL 6.3 - 8.0 g/dL [facility] Sodium [Moles/Vol] 142 mmol/L 136 - 144 mmol/L [facility] Urea nitrogen [Mass/Vol] 10 mg/dL 9 - 24 mg/dL [facility] Albumin [Mass/Vol] 2.7 g/dL Low 3.9-4.9 [facility] Comment on above: Order Comment: Speci men Type: BLOOD SPECIMENOrdering Facility: [facility] Address: [address] [place], [place] [address] [address] Performed By: #### 3 016-3, 15631-4, 51991-9, 3040-3 ####[facility] [place] LABCLIA [id number] [facility] [place] [address] [place] ALP [Catalytic activity/Vol] 211 U/L High 38-113 [facility] Comment on above: Order Comment: Speci men Type: BLOOD SPECIMENOrdering Facility: [facility] Address: [address] [place] [address] Performed By: #### 3 016-3, 59806-6, 52011-0, 0-3 ####[facility] [place] LABCLIA [id number] [facility] [place] [address] [place] ALT With P-5'-P [Catalytic activity/Vol] 53 U/L Normal 10-54 [facility] Comment on above: Order Comment: Speci men Type: BLOOD SPECIMENOrdering Facility: [facility] Address: [address] [place] [address] Performed By: #### 3 016-3, 90048-1, 55533-5, 3039-3 ####[facility][1]I LABCLIA [id number] [place] [address] [place] [facility] Anion gap [Moles/Vol] 13 mmol/L Normal 8-15 [facility] Comment on above: Order Comment: Speci men Type: BLOOD SPECIMENOrdering Facility: [facility] Address: [address] [place] [address] Performed By: #### 3 016-3, 05708-8, 92505-2, 0-3 ####[facility][1]I LABCLIA [id number] [facility] [place] [address] [place] AST With P-5'-P [Catalytic activity/Vol] 179 U/L High 14-40 [facility] Comment on above: Order Comment: Speci men Type: BLOOD SPECIMENOrdering Facility: [facility] Address: [address] [place], [place] [address] Performed By: #### 3 016-3, 15519-8, 97439-1, 0-3 ####[facility] [place] LABCLIA [id number] [place] [address] [place] Bilirubin [Mass/Vol] 0.5 mg/dL Normal 0.2-1.3 [facility] Comment on above: Order Comment: Speci men Type: BLOOD SPECIMENOrdering Facility: [facility] Address: [address] [place] [address] Performed By: #### 3 016-3, 14957-4, 92141-2, 3040-3 ####[facility] [place] LABCLIA [id number] [place] [address] [place] Calcium [Mass/Vol] 8.3 mg/dL Low 8.5-10.2 [facility] Comment on above: Order Comment: Speci men Type: BLOOD SPECIMENOrdering Facility: [facility] Address: [address] [place] [address] Performed By: #### 3 016-3, 11292-5, 56496-9, 3040-3 ####[facility] [place] LABCLIA [id number] [place] [address] [place] Chloride [Moles/Vol] 99 mmol/L Normal 98-107 [facility] Comment on above: Order Comment: Speci men Type: BLOOD SPECIMENOrdering Facility: [facility] Address: [address] [place] [address] Performed By: #### 3 016-3, 01636-3, 26131-0, 3040-3 ####[facility] [place] LABCLIA [id number] [place] [address] [place] CO2 [Moles/Vol] 30 mmol/L Normal 22-30 [facility] Comment on above: Order Comment: Speci men Type: BLOOD SPECIMENOrdering Facility: [facility] Address: [address] [place] [address] Performed By: #### 3 016-3, 56984-9, 93733-4, 3040-3 ####[facility] [place] LABCLIA [id number] [place] [address] [place] Creatinine [Mass/Vol] 1.36 mg/dL High 0.73-1.22 [facility] Comment on above: Order Comment: Gini nowak Type: BLOOD SPECIMENOrdering Facility: [facility] Address: [address] [place] [address] Performed By: #### 3 016-3, 03040-9, 92880-2, 3040-3 ####[facility] LABCLIA [id number] [place] [address] [facility] Creatinine and Glomerular filtration rate.predicted panel (S/P/Bld) 59 mL/min/1.73m??? Low >=60 [facility] Comment on above: Order Comment: Gini nowak Type: BLOOD SPECIMENOrdering Facility: [facility] Address: [address] [place] [address] Result Comment: Gurwinder mated Glomerular Filtration Rate [...] actual GFR. Performed By: #### 3 016-3, 25890-2, 13550-6, 3040-3 ####[facility] LABCLIA [id number] [place] [address] [place] [facility] Glucose [Mass/Vol] 165 mg/dL High 74-99 [facility] Comment on above: Order Comment: Gini nowak Type: BLOOD SPECIMENOrdering Facility: [facility] Address: [address] [place] [address] Result Comment: The [place] Diabetes Association (ADA) provides guidance for cutoff [...] Standards of Medical Care in Diabetes 2016, [place] Diabetes Association. Diabetes Care. 2016.39(Suppl 1). Performed By: #### 3 016-3, 07346-7, 41150-3, 0-3 ####[facility] [employer] LABCLIA [id number] [place] [address] [place] Potassium [Moles/Vol] 4.7 mmol/L Normal 3.7-5.1 [facility] Comment on above: Order Comment: Speci men Type: BLOOD SPECIMENOrdering Facility: [facility] Address: [address] [place] [address] Performed By: #### 3 016-3, 76681-8, 15383-6, 0-3 ####[facility] [employer] LABCLIA [id number] [place] [address] [place] Protein [Mass/Vol] 6.6 g/dL Normal 6.3-8.0 [facility] Comment on above: Order Comment: Speci men Type: BLOOD SPECIMENOrdering Facility: [facility] Address: [address] [place] [address] Performed By: #### 3 016-3, 89717-6, 07614-2, 0-3 ####[facility] [employer] LABCLIA [id number] [place] [address] [place] Sodium [Moles/Vol] 142 mmol/L Normal 136-144 [facility] Comment on above: Order Comment: Speci men Type: BLOOD SPECIMENOrdering Facility: [facility] Address: [address] [place] [address] Performed By: #### 3 016-3, 48109-5, 77689-8, 3040-3 ####[facility] [place] LABCLIA [id number] [place] [address] [place] Urea nitrogen [Mass/Vol] 10 mg/dL Normal 9-24 [facility] Comment on above: Order Comment: Speci men Type: BLOOD SPECIMENOrdering Facility: [facility] Address: [address] [place] [address] Performed By: #### 3 016-3, 90565-9, 57986-5, 3040-3 ####[facility] [place] LABCLIA [id number] [place] [address] [place] Ferritin SerPl-mCncon 2023 Ferritin [Mass/Vol] 561.0 ng/mL Normal 30.3-565.7 [facility] Comment on above: Order Comment: Spec men Type: BLOOD SPECIMENOrdering Facility: [facility] Address: [address] [place] [address] Performed By: #### 2 276-4, 73125-6, PSAS1 ####[facility] LABORATORYCLIA [id number] [address] OF [facility] Folate SerPl-mCncon 08-09-19 Folate [Mass/Vol] 19.5 ng/mL Normal >4.7 [facility] Comment on above: Order Comment: Speci [facility] Type: BLOOD SPECIMENOrdering Facility: [facility] Address: [address] [place] [address] Performed By: #### 2 2314-9, 5195-3, 4-8, 04724-5 ####[facility] LABORATORYCLIA [id number] OF [facility] HAV IgM Ser Qlon 08-09-2023 HAV IgM Ql (S) Non-Reactive Normal Nonreactive [facility] Comment on above: Order Comment: Speci [facility] Type: BLOOD SPECIMENOrdering Facility: [facility] Address: [address] [place] [address] Result Comment: No e vidence of recent infection with Hepatitis A virus. Performed By: #### 2 2314-9, 5195-3, 4-8, 98601-9 ####[facility] LABORATORYCLIA [id number] [address] [place] HBV core IgM Ser Qlon 2023 HBV core IgM Ql (S) Non-Reactive Normal Nonreactive [facility] Comment on above: Order Comment: Speci men Type: BLOOD SPECIMENOrdering Facility: [facility] Address: [address] [place] [address] Result Comment: No e vidence of recent infection with Hepatitis B virus. Should recent infection be suspected, repeat testing may be considered 3-4 weeks after this draw. Performed By: #### 2 2314-9, 5195-3, 2284-8, 73371-5 ####[facility] LABORATORYCLIA [id number] [address] [place] HBV surface Ag Ser Qlon HBV surface Ag Ql (S) Non-Reactive Normal Nonreactive [facility] Comment on above: Order Comment: Speci men Type: BLOOD SPECIMENOrdering Facility: [facility] Address: [address] [place] [address] Performed By: #### 2 2314-9, 5195-3, 2284-8, 82206-1 ####[facility] [id number] [place] [address] [place] HCV Ab Ser Qlon 08-09-2023 HCV Ab Ql (S) Non-Reactive Normal Nonreactive [facility] Comment on above: Order Comment: Speci men Type: BLOOD SPECIMENOrdering Facility: [facility] Address: [address] [place] [address] Result Comment: The result suggests no evidence of active infection with Hepatitis C virus. Should recent infection be suspected, repeat testing may be considered 4-6 weeks after this draw. Performed By: #### 1 6128-1 ####[facility] LABORATORYCLIA [id number] [address] [place] HIV 1+2 Ab IA Ql HIV 1 and 2 Ab IA.rapid Nom (S/P/Bld) Normal [facility] Comment on above: Order Comment: Speci men Type: BLOOD SPECIMENOrdering Facility: [facility] Address: [address], [place] [address] Result Comment: Test not indicated. Performed By: #### 3 1201-7, 2131-10 ####[facility] LABORATORYCLIA [id number] [place], [place] [address] [place] [address] [place] HIV 1+2 Ab+HIV1 p24 Ag IA Ql Non-Reactive Normal Nonreactive [facility] Comment on above: Order Comment: Speci men Type: BLOOD SPECIMENOrdering Facility: [facility] Address: [address] [place] [address] Result Comment: [place] Rev. Code 3701.243(E): This information has been [...] for this assay has moved from Siemens Snapflowaur XP to [employer] Sciencesas 8000 effective November 11, 2021. Please note there may be a change in the reporting units and/or reference range. Performed By: #### 3 1201-7, 2131-10 ####[facility] LABORATORYCLIA [id number] [place], [place] [address] [place] [address] HIV immunoassay testing algorithm interpretation (S/P/Bld) [Interp] Normal [facility] Comment on above: Order Comment: Speci men Type: BLOOD SPECIMENOrdering Facility: [facility] Address: [address] [place] [address] Result Comment: No e vidence of HIV-1 or HIV-2 infection. Should recent infection be suspected, repeat testing may be considered 2-3 weeks after this draw. Performed By: #### 3 1201-7, 2131-10 ####[facility] LABORATORYCLIA [id number] [place] [address] [place] HbA1c (Bld)on 08-09-2023 Average glucose Estimated from glycated hemoglobin (Bld) [Mass/Vol] 148 mg/dL Normal [facility] Comment on above: Order Comment: Speci men Type: BLOOD SPECIMENOrdering Facility: [facility] Address: [facility] [place] [address] Result Comment: eAG: (Estimated average glucose) is a calculated value from HgbA1c and is instruments sales representative of the average blood glucose level in the last 2-3 month period. Performed By: #### 5 7021-8 ####[facility][1]I LABCLIA [id number] [address] [place]#### 33542-7 ####[facility] LABCLIA [id number] [address] [place] HbA1c (Bld) [Mass fraction] 6.8 % High 4.3-5.6 [facility] Comment on above: Order Comment: Speci men Type: BLOOD SPECIMENOrdering Facility: [facility] Address: [address] [place] [address] Result Comment: [place] Diabetes Association guidelines indicate that patients with HgbA1c in the range 5.7-6.4% are at increased risk for development of diabetes, and intervention by lifestyle modification may be beneficial. HgbA1c greater or equal to 6.5% is considered diagnostic of diabetes. Performed By: #### 5 7021-8 ####[facility][1]I LABCLIA [id number] [address]#### 026[address]-1 ####[facility] LABCLIA [id number] [address] [place] Iron and Iron binding capaci ty panelon 08-09-2023 Iron [Mass/Vol] 108 ug/dL Normal 41-186 [facility] Comment on above: Order Comment: Speci men Type: BLOOD SPECIMENOrdering Facility: [facility] Address: [address] [place] [address] Performed By: #### 2 276-4, 64432-1, PSAS1 ####[facility] LABORATORYCLIA [id number] [address] [place] Iron binding capacity [Mass/Vol] <125 Low 232-386 [facility] Comment on above: Order Comment: Speci men Type: BLOOD SPECIMENOrdering Facility: [facility] Address: [address] [place] [address] Performed By: #### 2 276-4, 40435-4, PSAS1 ####[facility] LABORATORYCLIA [id number] [place] [address] [facility] Iron saturation [Mass fraction] >86.4 High 15.0-57.0 [facility] Comment on above: Order Comment: Speci men Type: BLOOD SPECIMENOrdering Facility: [facility] Address: [address] [place] [address] Performed By: #### 2 276-4, 87619-4, PSAS1 ####[facility] LABORATORYCLIA [id number] [place] [id number] [place] LIPASEon 08-09-2023 Lipase [Catalytic activity/Vol] 4 U/L Low 16 - 61 U/L [facility] Lipase SerPl-cCncon 08-09-19 24 Lipase [Catalytic activity/Vol] 4 U/L Low 16-61 [facility] Comment on above: Order Comment: Speci men Type: BLOOD SPECIMENOrdering Facility: [facility] Address: [address] [place] [address] Performed By: #### 3 016-3, 28255-3, 24320-3, 3040-3 ####[facility] [place] LABCLIA [id number] [place] [address] [place] Lipid 1996 panelon 4 Cholesterol [Mass/Vol] 104 mg/dL NINF - 200 mg/dL [facility] Comment on above: <200 mg/dL, Desirabl e 200-239 mg/dL, Borderline high >239 mg/dL, High Cholesterol in HDL [Mass/Vol] 30 mg/dL Low 39 - PINF mg/dL [facility] Comment on above: 40-59 mg/dL, Accepta ble >59 mg/dL, High: Negative risk factor for coronary heart disease <40 mg/dL, Low: Positive risk factor for coronary heart disease Cholesterol in LDL [Mass/Vol] 32 mg/dL NINF - 100 mg/dL [facility] Comment on above: <100 mg/dL, Optimal 100-129 mg/dL, Near optimal/above optimal 130-159 mg/dL, Borderline high 160-189 mg/dL, High >189 mg/dL, Very high Secondary prevention optimal LDL Cholesterol levels are recommended to be < 70 mg/dL Cholesterol in LDL/Cholesterol in HDL [Mass ratio] 1.07 {ratio} NINF - 2.54 [facility] Comment on above: Reference: 1. National Cholesterol Education Program ATP III Guideline At-A-Glance Quick Desk Reference: National Heart, Lung, and Blood [place]. National Institutes of Health. 2001: NIH Publication No. 01-3305. 2. An International Atherosclerosis Society position paper: global recommendations for the management of dyslipidemia: executive summary, Atherosclerosis. 2014: 232(2):410-413. Cholesterol in VLDL [Mass/Vol] 42 mg/dL High NINF - 30 mg/dL [facility] Cholesterol non HDL [Mass/Vol] 74 mg/dL NINF - 130 mg/dL [facility] Comment on above: <130 mg/dL, Optimal 130-159 mg/dL, Near optimal/above optimal 160-189 mg/dL, Borderline high 190-219 mg/dL, High >219 mg/dL, Very high Secondary prevention optimal non HDL Cholesterol levels are recommended to be <100 mg/dL Cholesterol.total/Livia sterol in HDL [Mass ratio] 3.47 {ratio} NINF - 5.10 [facility] Fasting Time 12 hrs [facility] Triglyceride [Mass/Vol] 211 mg/dL High NINF - 150 mg/dL [facility] Comment on above: <150 mg/dL, Normal 150-199 mg/dL, Borderline high 200-499 mg/dL, High >499 mg/dL, Very high Cholesterol [Mass/Vol] 104 mg/dL Normal <200 [facility] Comment on above: Order Comment: Speci men Type: BLOOD SPECIMENOrdering Facility: [facility] Address: [address] [place] [address] Result Comment: <200 mg/dL, Desirable 200-239 mg/dL, Borderline high >239 mg/dL, High Performed By: #### 3 016-3, 54493-5, 54492-3, 3040-3 ####[facility] LABCLIA [id number] [place] [address] [facility] Cholesterol in HDL [Mass/Vol] 30 mg/dL Low >39 [facility] Comment on above: Order Comment: Corbyi men Type: BLOOD SPECIMENOrdering Facility: [facility] Address: [address] [place] [address] Result Comment: 40-5 9 mg/dL, Acceptable >59 mg/dL, High: Negative risk factor for coronary heart disease <40 mg/dL, Low: Positive risk factor for coronary heart disease Performed By: #### 3 016-3, 75143-3, 14973-8, 3040-3 ####[facility] [employer] [facility] LABCLIA [id number] [place] [address] [facility] Cholesterol in LDL [Mass/Vol] 32 mg/dL Normal <100 [facility] Comment on above: Order Comment: Speci eliu Type: BLOOD SPECIMENOrdering Facility: [facility] Address: [address] [place] [address] Result Comment: <100 mg/dL, Optimal 100-129 mg/dL, Near optimal/above optimal 130-159 mg/dL, Borderline high 160-189 mg/dL, High >189 mg/dL, Very high Secondary prevention optimal LDL Cholesterol levels are recommended to be < 70 mg/dL Performed By: #### 3 016-3, 97993-9, 87570-8, 3040-3 ####[facility] [employer] LABCLIA [id number] [place] [address] [facility] Cholesterol in LDL/Cholesterol in HDL [Mass ratio] 1.07 {ratio} Normal <2.54 [facility] Comment on above: Order Comment: Gini nowak Type: BLOOD SPECIMENOrdering Facility: [facility] Address: [address] [place] [address] Result Comment: Refgiancarlo murillo: 1. National Cholesterol Education Program ATP III Guideline At-A-Glance Quick Desk Reference: National Heart, Lung, and Blood [place]. National Institutes of Health. 2001: NIH Publication No. 01-3305. 2. An International Atherosclerosis Society position paper: global recommendations for the management of dyslipidemia: executive summary, Atherosclerosis. 2014: 232(2):410-413. Performed By: #### 3 016-3, 67169-1, 29665-8, 3040-3 ####[facility] LABCLIA [id number] [place] [address] [place] Cholesterol in VLDL [Mass/Vol] 42 mg/dL High <30 [facility] Comment on above: Order Comment: Speci men Type: BLOOD SPECIMENOrdering Facility: [facility] Address: [address] [place] [address] Performed By: #### 3 016-3, 86513-1, 24302-7, 3040-3 ####[facility] LABCLIA [id number] [place] [address] [place] [facility] Cholesterol non HDL [Mass/Vol] 74 mg/dL Normal <130 [facility] Comment on above: Order Comment: Speci men Type: BLOOD SPECIMENOrdering Facility: [facility] Address: [address] [place] [address] Result Comment: <130 mg/dL, Optimal 130-159 mg/dL, Near optimal/above optimal 160-189 mg/dL, Borderline high 190-219 mg/dL, High >219 mg/dL, Very high Secondary prevention optimal non HDL Cholesterol levels are recommended to be <100 mg/dL Performed By: #### 3 016-3, 13078-9, 74325-4, 3040-3 ####[facility] LABCLIA [id number] [place] [address] [place] Cholesterol.total/Livia sterol in HDL [Mass ratio] 3.47 {ratio} Normal <5.10 [facility] Comment on above: Order Comment: Speci men Type: BLOOD SPECIMENOrdering Facility: [facility] Address: [address] [place] [address] Performed By: #### 3 016-3, 82084-3, 84736-8, 3040-3 ####[facility] LABCLIA [id number] [place] [address] [facility] FASTING TIME 12 hrs Normal [facility] Comment on above: Order Comment: Speci men Type: BLOOD SPECIMENOrdering Facility: [facility] Address: [address] [place] [address] Performed By: #### 3 016-3, 84470-9, 25215-9, 3040-3 ####[facility][1]I LABCLIA [id number] [place] [address] [facility] Triglyceride [Mass/Vol] 211 mg/dL High <150 [facility] Comment on above: Order Comment: Speci men Type: BLOOD SPECIMENOrdering Facility: [facility] Address: [address] [place] [address] Result Comment: <150 mg/dL, Normal 150-199 mg/dL, Borderline high 200-499 mg/dL, High >499 mg/dL, Very high Performed By: #### 3 016-3, 71397-3, 06957-1, 3040-3 ####[facility][1]I LABCLIA [id number] [place] [address] [facility] No Panel Informationon 08-08 Interpretation and review of laboratory results Abnormal [facility] PSA/PROSTATE SPECIFIC ANTIGE N SCREENINGon 08-09-2023 Prostate specific Ag [Mass/Vol] 0.78 ng/mL Normal <2.60 [facility] Comment on above: Order Comment: Speci men Type: BLOOD SPECIMENOrdering Facility: [facility] Address: [address] [place] [address] Result Comment: Tota l PSA test methodology used is the Electrochemiluminescence Immunoassay by [employer]. Total PSA values by differing methodologies cannot be interchanged. Performed By: #### 2 276-4, 74284-1, PSAS1 ####[facility] LABORATORYCLIA [id number] [place] [id number] [place] THYROID STIMULATING HORMONEo n 08-09-2023 TSH Qn 1.170 m[IU]/L [facility] TSH Qnon 08-09-2023 Interpretation and review of laboratory results Normal [facility] TSH SerPl-aCncon 08-09-2023 TSH Qn 1.170 m[IU]/L Normal 0.270-4.200 [facility] Comment on above: Order Comment: Speci men Type: BLOOD SPECIMENOrdering Facility: [facility] Address: [address] [place] [address] [place] [address] Performed By: #### 3 016-3, 90131-9, 38553-4, 3040-3 ####[facility] LABCLIA [id number] [place] [address] [place] UA DIP, URINE (POC)on 2023 BILIRUBIN UA (POCT) Negative Negative [facility] CLARITY UA (POCT) Cloudy [facility] COLOR UA (POCT) Other [facility] GLUCOSE UA (POCT) 500 mg/dL Abnormal Negative [facility] Hemoglobin Ql (U) Trace-intact Abnormal Negative [facility] Interpretation and review of laboratory results Abnormal [facility] KETONE UA (POCT) Negative Negative mg/dL [facility] LEUKOCYTES UA (POCT) Small Abnormal Negative [facility] NITRITE UA (POCT) Negative Negative [facility] PH UA (POCT) >=9.0 Abnormal 4.5 - 8.0 [facility] Protein Ql (U) 30 mg/dL Abnormal Negative [facility] SPECIFIC GRAVITY UA (POCT) 1.015 1.005 - 1.030 [facility] UROBILINOGEN UA (POCT) 0.2 Orin l E.U./dL [facility] Location:[facility], [address] [place] [address], [address] [facility] POINT OF CARE [facility] Vit B12 [facility] 024 Cobalamin (Vitamin B12) [Mass/Vol] 1523 pg/mL High 232-1245 [facility] Comment on above: Order Comment: Speci men Type: BLOOD SPECIMENOrdering Facility: [facility] Address: [facility] [place] [address] Performed By: #### 3 1201-7, 2132-9 ####[facility] LABORATORYCLIA [id number] [place] [address] [place] Absolute lymphocyte countOrd ered By: Refugio Rojas on 05-20-2023 Lymphocytes Auto (Unsp spec) [#/Vol] 1.20 10*3/uL 0.83-4.[address] [facility] Automated lymphocyte count a s percentage of total leukocytesOrdered By: Refugio Rojas on 05-20-2023 Lymphocytes/100 WBC Auto (Unsp spec) 9.8 % 19-[address] [facility] Basophil percentageOrdered B y: Refugio Rojas on 05-20-2023 Basophil percentage 8.5 g/dL 13.0-16.5 [facility] Basophils (Bld) [#/Vol] 12.2 10*3/uL 4.4-11.[address] [facility] Basophils (Bld) [#/Vol] 10.1 10*3/uL 2.0-7.[address] [facility] Basophils/100 WBC (Bld) 82.4 % 47-70 [facility] Basophils/100 WBC (Bld) 5.6 % 0-10 [facility] Basophils/100 WBC (Bld) 0.7 % 0-1 [facility] Basophil percentageOrdered B y: Estefany Donnelly on 05-20-2023 Basophil percentage 145 mg/dL 74-106 [facility] Basophil percentage 3.1 mg/dL 2.5-4.9 [facility] Basophil percentage 139 mmol/L 136-145 [facility] Basophil percentage 4.7 mmol/L 3.5-5.1 [facility] Basophil percentage 109 mmol/L 98-107 [facility] Blood manual differential co mment interpretation (narrative result)Ordered By: Refugio Rojas on 05-20-2023 Manual differential comment Jose Carlos (Bld) [Interp] SCANNED [facility] Determination of erythrocyte mean corpuscular volume (MCV)Ordered By: Refugio Rojas on 05-20-2023 MCV (RBC) [Entitic vol] 101.9 fL 80-94 [facility] Erythrocyte distribution wid th ratioOrdered By: Refugio Rojas on 05-20-2023 Erythrocyte distribution width (RBC) [Ratio] 18.5 % 11.6-14.[address] [facility] Erythrocyte distribution wid th standard deviationOrdered By: Refugio Rojas on 05-20-2023 Erythrocyte distribution width (RBC) [Entitic vol] 68.9 fL 35.1-43.[address] [facility] Hematocrit Auto (Bld) [Volum e fraction]Ordered By: Refugio Rojas on 05-20-2023 Hematocrit (Bld) [Volume fraction] 26.4 % 40-[address] [facility] Immature granulocytes/100 WB C Auto (Bld)Ordered By: Refugio Rojas on 05-20-2023 Immature granulocytes/100 WBC (Bld) 0.800 % 0.0-0.[address] [facility] No Panel InformationOrdered By: Refugio Rojas on 05-20-2023 32.8 pg 27.0-32.[address] [facility] 32.2 g/dL 32-[address] [facility] 264 K/mm3 150-[address] [facility] 11.9 fl 6.2-12.[address] [facility] 0 % 0-[address] [facility] 1+ [facility] No Panel InformationOrdered By: Estefany Donnelly on 05-20-2023 35 mL/min >[address] [facility] 42 mL/min >[address] [facility] 40.22 ml/min [facility] 9.1 RATIO 10-[address] [facility] 28.0 mmol/L 21.0-32.[address] [facility] RBC Auto (Bld) [#/Vol]Ordere d By: Refugio Rojas on 05-20-2023 RBC (Bld) [#/Vol] 2.59 10*6/uL 4.6-6.2 [facility] Serum or plasma calcium luciana urement (mass/volume)Ordered By: Estefany Donnelly on 05-20-2023 Calcium [Mass/Vol] 7.8 mg/dL 8.5-10.1 [facility] Serum or plasma creatinine m easurement (mass/volume)Ordered By: Estefany Donnelly on 05-20-2023 Creatinine [Mass/Vol] 2.08 mg/dL 0.70-1.30 [facility] Serum or plasma urea nitroge n measurement (mass/volume)Ordered By: Estefany Donnelly on 05-20-2023 Urea nitrogen [Mass/Vol] 19 mg/dL 7-[address] [facility] Thin prep Papanicolaou smear with manual screeningOrdered By: Refugio Rojas on 05-20-2023 Thin prep Papanicolaou smear with manual screening 265 mg/dL 74-[address] [facility] Thin prep Papanicolaou smear with manual screeningOrdered By: Estefany Donnelly on 05-20-2023 Thin prep Papanicolaou smear with manual screening 1.4 g/dL 3.2-5.[address] [facility] Thin prep Papanicolaou smear with manual screeningOrdered By: Refugio Rojas on 05-19-2023 Thin prep Papanicolaou smear with manual screening 2 5-[address] [facility] Iron measurement (mass/mass) Ordered By: Conrado Morel on 05-17-2023 Iron (Unsp spec) [Mass/Mass] 28 ug/dL 65-[address] [facility] No Panel InformationOrdered By: Conrado Morel on 05-17-2023 > 2000 pg/mL 211-[address] [facility] 45 ug/dL 250-[address] [facility] 419 ng/mL 26-[address] [facility] Serum or plasma iron saturat ion measurement (mass fraction)Ordered By: Conrado Morel on 05-17-2023 Iron saturation [Mass fraction] 62.2 % 15.0-55.[address] [facility] Basophil percentageOrdered B y: Conrado Morel on 05-16-2023 Basophil percentage 4.6 g/dL 6.4-8.2 [facility] Basophil percentage 0.40 mg/dL 0.20-1.00 [facility] Lower GI hemoglobin IA Ql (S tl)Ordered By: Conrado Morel on 05-16-2023 Stool gastrointestinal hemoglobin detection by immunologic method Positive [facility] No Panel InformationOrdered By: Conrado Morel on 05-16-2023 3.6 g/dL 2.2-4.[address] [facility] 0.3 RATIO 0.9-2.[address] [facility] 152 U/L 45-[address] [facility] 25 U/L 16-[address] [facility] 2.2 mg/dL 1.6-2.[address] [facility] Thin prep Papanicolaou smear with manual screeningOrdered By: Conrado Morel on 05-16-2023 Thin prep Papanicolaou smear with manual screening 41 U/L 15-[address] [facility] Blood platelet adequacy dete ction by light microscopyOrdered By: Conrado Morel on 05-14-2023 Platelets LM Ql (Bld) MKD DEC ADEQ [facility] No Panel InformationOrdered By: Conrado Morel on 05-14-[address] [facility] Review by pathologistOrdered By: Conrado Morel on 05-14-2023 Pathologist review Jose Carlos (Unsp spec) [Interp] Reviewed [facility] Assessment of wrist artery p atency prior to arterial punctureOrdered By: Conrado Morel on 05-12-2023 Arterial patency Wrist artery --pre arterial puncture Positive [facility] Base excessOrdered By: Conrado Morel on 05-12-2023 Base excess Calc (BldV) [Moles/Vol] 6 mmol/L -2-[address] [facility] Basophil percentageOrdered B y: Iman Aguayo on 05-12-2023 Basophil percentage 27.0 umol/L 11-32 [facility] Basophil percentageOrdered B y: Conrado Morel on 05-12-2023 Basophil percentage 32 mmol/L [facility] Basophils/100 WBC (Bld) 98 % 95-99 [facility] Hemoglobin in reticulocytes (mass per reticulocyte)Ordered By: Conrado Morel on 05-12-2023 Hemoglobin (Reticulocytes) [Entitic mass] 31.7 pg 30-[address] [facility] Immature platelet fractionOr dered By: Conardo Morel on 05-12-2023 Platelets reticulated/100 platelets Auto (Bld) 10.0 % 1.0-7.[address] [facility] Measurement, pHOrdered By: Viola Morel on 05-12-2023 pH (Unsp spec) 7.42 [pH] 7.35-7.[address] [facility] No Panel InformationOrdered By: Conrado Morel on 05-12-2023 8.50 % 3.00-15.[address] [facility] ART [facility] R Radial [facility] NIV [facility] BiPAP [facility] [address] [facility] 16/8 14 30% [facility] 47.3 mmHg 35-[address] [facility] 112 mmHG 75-[address] [facility] 30.7 mmol/L 22-[address] [facility] Reticulocytes Auto (Bld) [#/ Vol]Ordered By: Conrado Morel on 05-12-2023 Reticulocytes/100 RBC (Bld) 1.44 % 0.5-1.[address] [facility] Bacteria identified Cx Nom ( U)Ordered By: Conrado Morel on 05-10-2023 Culture, urine Escherichia coli [facility] Basophil percentageOrdered B y: Conrado Morel on 05-10-2023 Basophil percentage 3.0 mmol/L 0.4-2.0 [facility] No Panel InformationOrdered By: Barry Sheehan on 05-10-2023 Negative Negative [facility] No Panel InformationOrdered By: Conrado Morel on 05-10-2023 No growth in [address] [facility] Serum or plasma thyroid stim ulating hormone (TSH) measurement (units/volume)Ordered By: Conrado Fraser on 05-10-2023 TSH Qn 0.89 uIU/mL 0.358-3.[address] [facility] Absolute lymphocyte countOrd ered By: Jacky Arevalo on 05-09-2023 Lymphocytes Auto (Unsp spec) [#/Vol] 0.35 10*3/uL 0.83-4.[address] [facility] Automated lymphocyte count a s percentage of total leukocytesOrdered By: Jacky Arevalo on 05-09-2023 Lymphocytes/100 WBC Auto (Unsp spec) 2.7 % 19-[address] [facility] Basophil percentageOrdered B y: Jacky Arevalo on 05-09-2023 Basophil percentage 50-100 SEEN /hpf 0-[address] [facility] Basophils/100 WBC (Bld) 0.5 % 0-1 [facility] Bilirubin [Mass/Vol] 1.00 mg/dL 0.20-1.00 [facility] Comment on above: For patients on eltr ombopag therapy, use of [employer] TBIL is not recommended. Chloride [Moles/Vol] 92 mmol/L 98-107 [facility] Eosinophils/100 WBC (Bld) 0.0 % 0-[address] [facility] Glucose [Mass/Vol] 209 mg/dL 74-106 [facility] Comment on above: Glucose result great er than or equal to 200 mg/dLsuggests DIABETES MELLITUS per A.D.A. criteria. Hemoglobin (Bld) [Mass/Vol] 11.2 g/dL 13.0-16.[address] [facility] Monocytes/100 WBC (Bld) 3.2 % 0-10 [facility] Neutrophils (Bld) [#/Vol] 12.0 10*3/uL 2.0-7.[address] [facility] Neutrophils/100 WBC (Bld) 92.8 % 47-[address] [facility] Potassium [Moles/Vol] 4.0 mmol/L 3.5-5.1 [facility] Comment on above: Slight Hemolysis, Re sult may be falsely increased. Protein [Mass/Vol] 5.4 g/dL 6.4-8.2 [facility] Sodium [Moles/Vol] 137 mmol/L 136-145 [facility] WBC (Bld) [#/Vol] 13.0 10*3/uL 4.4-11.0 [facility] Bilirubin Test strip Ql (U)O rdered By: Jacky Arevalo on 05-09-2023 Bilirubin Ql (U) Negative Negative [facility] Blood platelet adequacy dete ction by light microscopyOrdered By: Jacky Arevalo on 05-09-2023 Platelets LM Ql (Bld) ADEQUATE ADEQ [facility] Determination of erythrocyte mean corpuscular volume (MCV)Ordered By: Jacky Arevalo on 05-09-2023 MCV (RBC) [Entitic vol] 104.0 fL 80-94 [facility] Direct bilirubinOrdered By: Jacky Arevalo on 05-09-2023 Bilirubin.direct [Mass/Vol] 0.48 mg/dL 0.00-0.[address] [facility] Erythrocyte distribution wid th ratioOrdered By: Jacky Arevalo on 05-09-2023 Erythrocyte distribution width (RBC) [Ratio] 15.7 % 11.6-14.[address] [facility] Erythrocyte distribution wid th standard deviationOrdered By: Jacky Arevalo on 05-09-2023 Erythrocyte distribution width (RBC) [Entitic vol] 59.7 fL 35.1-43.[address] [facility] Hematocrit Auto (Bld) [Volum e fraction]Ordered By: Jacky Arvealo on 05-09-2023 Hematocrit (Bld) [Volume fraction] 33.8 % 40-[address] [facility] Immature granulocytes/100 WB C Auto (Bld)Ordered By: Jacky Arevalo on 05-09-2023 Immature granulocytes/100 WBC (Bld) 0.800 % 0.0-0.[address] [facility] Comment on above: IG% - Immature Granu locytes (promyelocytes, myelocytes and metamyelocytes) > 1% indicates that a LEFT SHIFT is Present. Ketones Test strip Ql (U)Ord ered By: Jacky Arevalo on 05-09-2023 Ketones Ql (U) Negative Negative [facility] Laboratory - Chemistry and C hemistry - challengeOrdered By: Jacky Arevalo on 05-09-2023 ALP [Catalytic activity/Vol] 212 U/L 45-[address] [facility] ALT [Catalytic activity/Vol] 56 U/L 16-[address] [facility] CO2 [Moles/Vol] 36.0 mmol/L 21.0-32.[address] [facility] Globulin (S) [Mass/Vol] 3.9 g/dL 2.2-4.2 [facility] Lipase [Catalytic activity/Vol] U/L 13-[address] [facility] Comment on above: Please note:LIPASE r evised reference range effective 22. New Lipase methodology. Expected to produce lower values than the previous assay method. NEW Reference Range: 13 - 75 U/L Urea nitrogen/Creatinine [Mass ratio] 6.0 mg/mg 10-[address] [facility] Laboratory - CoagulationOrde red By: Jacky Arevalo on 05-09-2023 INR Coag (Bld) [Relative time] 2.0 {INR} [facility] PT Coag (PPP) [Time] 22.6 s 11.7-14.9 [facility] Laboratory - Hematology and Cell countsOrdered By: Jacky Arevalo on 05-09-2023 MCH (RBC) [Entitic mass] 34.5 pg 27.0-32.[address] [facility] MCHC (RBC) [Mass/Vol] 33.1 g/dL 32-36 [facility] Nucleated RBC/100 WBC (Bld) [Ratio] 0 % 0-[address] [facility] Platelet mean volume (Bld) [Entitic vol] 12.3 fL 6.2-12.[address] [facility] Platelets (Bld) [#/Vol] 133 10*3/uL 150-[address] [facility] Macrocytes detectionOrdered By: Jacky Arevalo on 05-09-2023 Macrocytes Ql (Bld) 1+ [facility] Mucus LM Ql (Urine sed)Order ed By: Jacky Arevalo on 05-09-2023 Mucus Ql (Urine sed) 0 SEEN /hpf [facility] Nitrite Test strip Ql (U)Ord ered By: Jacky Arevalo on 05-09-2023 Nitrite Ql (U) Negative Negative [facility] No Panel InformationOrdered By: Jacky Arevalo on 05-09-2023 Urine RBC 0-5 SEEN /hpf 0-[address] [facility] 0-5 SEEN /hpf 0-[address] [facility] 22.6 SECONDS 11.7-14.[address] [facility] 2.[address] [facility] Estimated Creatinine Clearance Calc 55.78 ml/min [facility] Estimated GFR (MDRD) Amer 61 mL/min >[address] [facility] Comment on above: GFR Calc Estimated GFR (MDRD) Non-Af Amer 51 mL/min >[address] [facility] Comment on above: Non- GFR Calc < 10 U/L 13-[address] [facility] No Panel InformationOrdered By: Conrado Fraser on 05-09-[address] [facility] Negative < 50 ng/mL [facility] Positive < 300 ng/mL [facility] Protein Test strip Ql (U)Ord ered By: Jacky Arevalo on 05-09-2023 Protein Ql (U) 100 mg/dl Negative [facility] RBC Auto (Bld) [#/Vol]Ordere d By: Jacky Arevalo on 05-09-2023 RBC (Bld) [#/Vol] 3.25 10*6/uL 4.6-6.2 [facility] Serum or plasma calcium luciana urement (mass/volume)Ordered By: Jacky Arevalo on 05-09-2023 Calcium [Mass/Vol] 8.0 mg/dL 8.5-10.1 [facility] Serum or plasma creatinine m easurement (mass/volume)Ordered By: Jacky Arevalo on 05-09-2023 Creatinine [Mass/Vol] 1.50 mg/dL 0.70-1.30 [facility] Comment on above: The validity of the calculated GFR & GFRAA in patients over 70 years has not been determined. Clinical correlation is essential. Serum or plasma transthyreti n measurement (mass/volume)Ordered By: Conrado Fraser on 05-09-2023 Prealbumin [Mass/Vol] 8.0 mg/dL 20.0-40.0 [facility] Serum or plasma urea nitroge n measurement (mass/volume)Ordered By: Jacky Arevalo on 05-09-2023 Urea nitrogen [Mass/Vol] 9 mg/dL 7-[address] [facility] Squamous epithelial cells de tection in urine sediment by light microscopyOrdered By: Jacky Arevalo on 05-09-2023 Epithelial cells.squamous LM Ql (Urine sed) 0 SEEN /hpf 0-[address] [facility] Thin prep Papanicolaou smear with manual screeningOrdered By: Jacky Arevalo on 05-09-2023 Thin prep Papanicolaou smear with manual screening 1.5 g/dL 3.2-5.[address] [facility] Thin prep Papanicolaou smear with manual screening 220 U/L 15-[address] [facility] Comment on above: Slight Hemolysis, Re sult may be falsely increased. Thin prep Papanicolaou smear with manual screening 9 5-[address] [facility] Urine blood detectionOrdered By: Jacky Arevalo on 05-09-2023 RBC Ql (U) 250 /ul Negative [facility] Urine clarityOrdered By: Lala Arevalo on 05-09-2023 Clarity (U) Sl. Cloudy Clear [facility] Urine color determinationOrd ered By: Jacky Arevalo on 05-09-2023 Color (U) Yellow Yellow [facility] Urine glucose detectionOrder ed By: Jacky Arevalo on 05-09-2023 Glucose Ql (U) Normal mg/dl Normal [facility] Urine leukocyte esterase det ection by dipstickOrdered By: Jacky Arevalo on 05-09-2023 Leukocyte esterase Test strip Ql (U) 500 /ul Negative [facility] Urine pHOrdered By: Jacky hay on 05-09-2023 pH (U) 8.0 [pH] 5.0 - 8.[address] [facility] Urine phencyclidine (PCP) de tectionOrdered By: Conrado Fraser on 05-09-2023 Phencyclidine Ql (U) Negative < 25 ng/mL [facility] Urine sediment bacteria coun t by microscopy (number/high power field)Ordered By: Jacky Arevalo on 05-09-2023 Bacteria LM.HPF (Urine sed) [#/Area] 1 /[HPF] None Seen [facility] Urine specific gravity measu rementOrdered By: Jacky Arevalo on 05-09-2023 Specific gravity (U) [Rel density] 1.015 1.002-1.[address] [facility] Urine urobilinogen measureme ntOrdered By: Jacky Arevalo on 05-09-2023 Urobilinogen Ql (U) Normal mg/dl Normal [facility] Thin prep Papanicolaou smear with manual screeningOrdered By: Ashley Alvarado on 04-27-2023 Thin prep Papanicolaou smear with manual screening 104 mg/dL 74-[address] [facility] Comment on above: MANAGEMENT OF PATIEN T CARE PER NURSING PROTOCOL Basophil percentageOrdered B y: Ashley Alvarado on 04-24-2023 Basophil percentage 73 mg/dL <200 [facility] Basophil percentage 122 mg/dL <199 [facility] Cholesterol [Mass/Vol] 73 mg/dL <200 [facility] Comment on above: <200 mg/dL Desirable 200-240 mg/dL Borderline >240 mg/dL High Risk Triglyceride [Mass/Vol] 122 mg/dL <[address] [facility] Comment on above: The drugs N-Acetylcy steine and Metamizole may falsely depress this assay.Serum Triglycerides Reference Interval Normal <150 mg/dL Borderline high 150 - 199 mg/dL High 200 - 499 mg/dL Very High > or = 500 mg/dL Laboratory - Chemistry and C hemistry - challengeOrdered By: Ashley Alvarado on 04-24-2023 Cholesterol in HDL [Mass/Vol] 23 mg/dL >[address] [facility] Comment on above: The drugs N-Acetylcy steine and Metamizole may falsely depress this assay. Reference Range HDL <40 mg/dL Low HDL Cholesterol HDL >or= 60 mg/dL High HDL Cholesterol Cholesterol in LDL [Mass/Vol] 26 mg/dL 0-[address] [facility] No Panel InformationOrdered By: Ashley Alvarado on 04-24-2023 VLDL Cholesterol 24 mg/dL 5-[address] [facility] 23 mg/dL >[address] [facility] 26 mg/dL 0-[address] [facility] 24 mg/dL 5-[address] [facility] Basophil percentageOrdered B y: Conrado Fraser on 04-22-2023 Basophil percentage 0 SEEN /hpf 0-5 [facility] Bilirubin Test strip Ql (U)O rdered By: Conrado Fraser on 04-22-2023 Bilirubin Ql (U) Negative Negative [facility] Ketones Test strip Ql (U)Ord ered By: Conrado Fraser on 04-22-2023 Ketones Ql (U) Negative Negative [facility] Mucus LM Ql (Urine sed)Order ed By: Conrado Fraser on 04-22-2023 Mucus Ql (Urine sed) 0 SEEN /hpf [facility] Nitrite Test strip Ql (U)Ord ered By: Conrado Fraser on 04-22-2023 Nitrite Ql (U) Negative Negative [facility] No Panel InformationOrdered By: Conrado Fraser on 04-22-2023 Urine RBC 0-5 SEEN /hpf 0-[address] [facility] 0-5 SEEN /hpf 0-[address] [facility] Protein Test strip Ql (U)Ord ered By: Conrado Fraser on 04-22-2023 Protein Ql (U) 15 mg/dl Negative [facility] Squamous epithelial cells de tection in urine sediment by light microscopyOrdered By: Conrado Fraser on 04-22-2023 Epithelial cells.squamous LM Ql (Urine sed) 5-10 SEEN /hpf 0-[address] [facility] Urine blood detectionOrdered By: Conrado Fraser on 04-22-2023 RBC Ql (U) Negative Negative [facility] Urine clarityOrdered By: Beck Fraser on 04-22-2023 Clarity (U) Clear Clear [facility] Urine color determinationOrd ered By: Conrado Fraser on 04-22-2023 Color (U) Yellow Yellow [facility] Urine glucose detectionOrder ed By: Conrado Fraser on 04-22-2023 Glucose Ql (U) 100 mg/dl Normal [facility] Urine leukocyte esterase det ection by dipstickOrdered By: Conrado Fraser on 04-22-2023 Leukocyte esterase Test strip Ql (U) 25 /ul Negative [facility] Urine pHOrdered By: Conrado arredondo on 04-22-2023 pH (U) 8.0 [pH] 5.0 - 8.[address] [facility] Urine sediment bacteria coun t by microscopy (number/high power field)Ordered By: Conrado Fraser on 04-22-2023 Bacteria LM.HPF (Urine sed) [#/Area] 0 /[HPF] None Seen [facility] Urine specific gravity measu rementOrdered By: Conrado Fraser on 04-22-2023 Specific gravity (U) [Rel density] 1.015 1.002-1.[address] [facility] Urine urobilinogen measureme ntOrdered By: Conrado Fraser on 04-22-2023 Urobilinogen Ql (U) Normal mg/dl Normal [facility] Basophil percentageOrdered B y: Lucas Frausto on 04-21-2023 Basophil percentage 106 mg/dL 74-106 [facility] Basophil percentage 4.1 g/dL 6.4-8.2 [facility] Basophil percentage 1.00 mg/dL 0.20-1.00 [facility] Basophil percentage 143 mmol/L 136-145 [facility] Basophil percentage 3.6 mmol/L 3.5-5.1 [facility] Basophil percentage 106 mmol/L 98-107 [facility] Bilirubin [Mass/Vol] 1.00 mg/dL 0.20-1.00 [facility] Comment on above: For patients on eltr ombopag therapy, use of [employer] TBIL is not recommended. Chloride [Moles/Vol] 106 mmol/L 98-107 [facility] Glucose [Mass/Vol] 106 mg/dL 74-106 [facility] Comment on above: Fasting Glucose resu lt from 100 to 125 mg/dL suggests IMPAIRED HOMEOSTASIS per A.D.A. criteria. Potassium [Moles/Vol] 3.6 mmol/L 3.5-5.1 [facility] Protein [Mass/Vol] 4.1 g/dL 6.4-8.2 [facility] Sodium [Moles/Vol] 143 mmol/L 136-145 [facility] Laboratory - Chemistry and C hemistry - challengeOrdered By: Lucas Frausto on 04-21-2023 Albumin/Globulin [Mass ratio] 0.6 {ratio} 0.9-2.[address] [facility] ALP [Catalytic activity/Vol] 158 U/L 45- [facility] ALT [Catalytic activity/Vol] 70 U/L [facility] CO2 [Moles/Vol] 32.0 mmol/L 21.0-32.[address] [facility] Globulin (S) [Mass/Vol] 2.5 g/dL 2.2-4.[address] [facility] Urea nitrogen/Creatinine [Mass ratio] 5.2 mg/mg - [facility] No Panel InformationOrdered By: Lucas Frausto on 04-21-2023 Estimated Creatinine Clearance Calc 61.74 ml/min [facility] Estimated GFR (MDRD) Amer 83 mL/min >[address] [facility] Comment on above: GFR Calc Estimated GFR (MDRD) Non-Af Amer 69 mL/min >[address] [facility] Comment on above: Non- GFR Calc Hepatitis A IgM Antibody Negative Negative [facility] Hepatitis B Core IgM Antibody Negative Negative [facility] Hepatitis C Antibody (EIA) Non-Reactive Non Reactive [facility] Hepatitis C Antibody Comment Comment . [facility] Comment on above: Not infected with HC V unless early or acute infection issuspected (which may be delayed in an immunocompromisedindividual), or other evidence exists to indicate HCVinfection.Performed at: [facility] [id number] Director: Agustin Arredondo PhD, Phone: [phone] 69 mL/min >[address] [facility] 83 mL/min >[address] [facility] 61.74 ml/min [facility] 5.2 RATIO - [facility] 2.5 g/dL 2.2-4.[address] [facility] 0.6 RATIO 0.9-2.[address] [facility] 158 U/L 45- [facility] 70 U/L [facility] 32.0 mmol/L 21.0-32.[address] [facility] Negative Negative [facility] Non-Reactive Non Reactive [facility] Comment . [facility] Serum or plasma calcium luciana urement (mass/volume)Ordered By: Lucas Frausto on 04-21-2023 Calcium [Mass/Vol] 7.3 mg/dL 8.5-10.1 [facility] Serum or plasma creatinine m easurement (mass/volume)Ordered By: Lucas Frausto on 04-21-2023 Creatinine [Mass/Vol] 1.15 mg/dL 0.70-1.30 [facility] Comment on above: The validity of the calculated GFR & GFRAA in patients over 70 years has not been determined. Clinical correlation is essential. Serum or plasma hepatitis B virus surface antigen detection by immunoassayOrdered By: Lucas Frausto on 04-21-2023 HBV surface Ag IA Ql Negative Negative [facility] Serum or plasma urea nitroge n measurement (mass/volume)Ordered By: Lucas Frausto on 04-21-2023 Urea nitrogen [Mass/Vol] 6 mg/dL 7-[address] [facility] Thin prep Papanicolaou smear with manual screeningOrdered By: Lucas Frausto on 04-21-2023 Thin prep Papanicolaou smear with manual screening 1.6 g/dL 3.2-5.[address] [facility] Thin prep Papanicolaou smear with manual screening 221 U/L 15-[address] [facility] Thin prep Papanicolaou smear with manual screening 5 5-[address] [facility] Absolute lymphocyte countOrd ered By: Chris Call on 04-20-2023 Lymphocytes Auto (Unsp spec) [#/Vol] 0.90 10*3/uL 0.83-4.[address] [facility] Basophil percentageOrdered B y: Chris Call on 04-20-2023 Basophil percentage 11.8 g/dL 13.0-16.5 [facility] Basophils (Bld) [#/Vol] 8.0 10*3/uL 4.4-11.[address] [facility] Basophils (Bld) [#/Vol] 6.1 10*3/uL 2.0-7.[address] [facility] Basophils/100 WBC (Bld) 0.9 % 0-1 [facility] Basophils/100 WBC (Bld) 76.5 % 47-70 [facility] Basophils/100 WBC (Bld) 11.2 % 19-41 [facility] Basophils/100 WBC (Bld) 10.2 % 0-10 [facility] Basophils/100 WBC (Bld) 0.5 % 0-5 [facility] Eosinophils/100 WBC (Bld) 0.5 % 0-[address] [facility] Hemoglobin (Bld) [Mass/Vol] 11.8 g/dL 13.0-16.[address] [facility] Lymphocytes/100 WBC (Bld) 11.2 % 19-[address] [facility] Monocytes/100 WBC (Bld) 10.2 % 0-10 [facility] Neutrophils (Bld) [#/Vol] 6.1 10*3/uL 2.0-7.[address] [facility] Neutrophils/100 WBC (Bld) 76.5 % 47-[address] [facility] WBC (Bld) [#/Vol] 8.0 10*3/uL 4.4-11.0 [facility] Determination of erythrocyte mean corpuscular volume (MCV)Ordered By: Chris Call on 04-20-2023 MCV (RBC) [Entitic vol] 102.0 fL 80-[address] [facility] Direct bilirubinOrdered By: Chris Call on 04-20-2023 Bilirubin.direct [Mass/Vol] 0.42 mg/dL 0.00-0.[address] [facility] Erythrocyte distribution wid th ratioOrdered By: Chris Call on 04-20-2023 Erythrocyte distribution width (RBC) [Ratio] 15.4 % 11.6-14.[address] [facility] Hematocrit Auto (Bld) [Volum e fraction]Ordered By: Chris Call on 04-20-2023 Hematocrit (Bld) [Volume fraction] 35.9 % 40-[address] [facility] Laboratory - Chemistry and C hemistry - challengeOrdered By: Chris Call on 04-20-2023 Lipase [Catalytic activity/Vol] U/L 13-[address] [facility] Comment on above: Please note:LIPASE r evised reference range effective 22. New Lipase methodology. Expected to produce lower values than the previous assay method. NEW Reference Range: 13 - 75 U/L Laboratory - Drug toxicology Ordered By: Chris Call on 04-20-2023 Amphetamines Ql (U) Negative <1000 ng/mL [facility] Benzodiazepines Ql (U) Negative < 200 ng/mL [facility] Cannabinoids Screen Ql (U) Negative < 50 ng/mL [facility] Cocaine Ql (U) Negative < 300 ng/mL [facility] Opiates Ql (U) Negative < 300 ng/mL [facility] Laboratory - Hematology and Cell countsOrdered By: Chris Call on 04-20-2023 Erythrocyte distribution width (RBC) [Entitic vol] 57.8 fL 35.1-43.[address] [facility] Immature granulocytes/100 WBC (Bld) 0.700 % 0.0-0.[address] [facility] Comment on above: IG% - Immature Granu locytes (promyelocytes, myelocytes and metamyelocytes) > 1% indicates that a LEFT SHIFT is Present. MCH (RBC) [Entitic mass] 33.5 pg 27.0-32.[address] [facility] MCHC (RBC) [Mass/Vol] 32.9 g/dL [facility] Platelet mean volume (Bld) [Entitic vol] 10.8 fL 6.2-12.[address] [facility] No Panel InformationOrdered By: Chris Call on 04-20-2023 Ethyl Alcohol Level 56.0 mg/dL [facility] Comment on above: The serum:whole bloo d ethanol ratio is approximately 1.14and varies slightly with hematocrit. Medical Alcohol reference interval and critical value innon-tolerant individuals; 50 - 100 Impairment 100 Intoxication 100 - 250 Severe Poisoning 250 - 400 Deep/possible fatal comaRESULT(S) PREVIOUSLY REPORTED ON MANUAL REQUISITION DURINGDOWNTIME. 33.5 pg 27.0-32.[address] [facility] 32.9 g/dL -[address] [facility] 57.8 fl 35.1-43.[address] [facility] 10.8 fl 6.2-12.[address] [facility] 0.700 % 0.0-0.[address] [facility] < 10 U/L [address] [facility] 56.0 mg/dL [facility] MDMA (Ecstasy) Screen Negative < 500 ng/mL [facility] Urine Barbiturates Screen Negative < 200 ng/mL [facility] Urine Drug Screen Comment [facility] Comment on above: CONFIRMATORY TESTING FOR ALL [...] Methadone Screen Negative < 300 ng/mL [facility] Negative < 50 ng/mL [facility] Platelets bldOrdered By: Fox Call on 04-20-2023 Platelets (Bld) [#/Vol] 132 10*3/uL 150-[address] [facility] RBC Auto (Bld) [#/Vol]Ordere d By: Chris Call on 04-20-2023 RBC (Bld) [#/Vol] 3.52 10*6/uL 4.6-6.2 [facility] Urine phencyclidine (PCP) de tectionOrdered By: Chris Call on 04-20-2023 Phencyclidine Ql (U) Negative < 25 ng/mL [facility] GGTon 04-02-2023 Gamma GT 280 U/L High 15-85 [facility] ([place]) Comment on above: Performed By: #### L RADHA SARGENT MDW, CBC, GFR, CMP, TROPHS, ANEU #### [place] [address] .GFRon 04-01-2023 GFR 77 ml/min/1.73sqm Normal [facility] ([place]) Comment on above: Result Comment: GFR Population [...] MDW, CBC, GFR, CMP, TROPHS, ANEU #### [place] [address] GFR Non- 64 ml/min/1.73sqm Normal [facility] ([place]) Comment on above: Result Comment: GFR Population [...] MDW, CBC, GFR, CMP, TROPHS, ANEU #### [place] [id number] AMYon 04-01-2023 Amylase [Catalytic activity/Vol] 66 U/L Normal 25-115 [facility] ([place]) Comment on above: Performed By: #### L RADHA SARGENT MDW, CBC, GFR, CMP, TROPHS, ANEU #### [address] 04-01-2023 Albumin Level 2.3 G/dL Low 3.4-4.8 [facility] ([place]) Comment on above: Performed By: #### L RADHA SARGENT MDW, CBC, GFR, CMP, TROPHS, ANEU #### [facility] [address] Albumin/Globulin [Mass ratio] 0.7 {ratio} Low 1.1-2.5 [facility] ([place]) Comment on above: Performed By: #### L RADHA SARGENT MDW, CBC, GFR, CMP, TROPHS, ANEU #### [address] [address] ALP [Catalytic activity/Vol] 161 U/L High 40-135 [facility] ([place]) Comment on above: Performed By: #### L RADHA SARGENT MDW, CBC, GFR, CMP, TROPHS, ANEU #### [address] [address] ALT [Catalytic activity/Vol] 47 U/L Normal 16-63 [facility] ([place]) Comment on above: Performed By: #### L RADHA SARGENT MDW, CBC, GFR, CMP, TROPHS, ANEU #### [address] [address] AST [Catalytic activity/Vol] 56 U/L High 10-40 [facility] ([place]) Comment on above: Performed By: #### L RADHA SARGENT MDW, CBC, GFR, CMP, TROPHS, ANEU #### [address] [address] Bili Total 0.5 mg/dL Normal 0.2-1.0 [facility] ([place]) Comment on above: Result Comment: Use of this assay is not recommended for patients undergoing treatment with eltrombopag due to the potential for falsely elevated results. Performed By: #### L RADHA SARGENT MDW, CBC, GFR, CMP, TROPHS, ANEU #### [address] [address] BUN/Creatinine Ratio 6 ratio Low 7-27 [facility] ([place]) Comment on above: Performed By: #### L RADHA SARGENT MDW, CBC, GFR, CMP, TROPHS, ANEU #### [address] [address] Calcium [Mass/Vol] 8.2 mg/dL Low 8.4-10.2 [facility] ([place]) Comment on above: Performed By: #### L RADHA SARGENT MDW, CBC, GFR, CMP, TROPHS, ANEU #### [address] [address] Chloride [Moles/Vol] 105 mmol/L Normal 98-107 [facility] ([place]) Comment on above: Performed By: #### L RADHA SARGENT MDW, CBC, GFR, CMP, TROPHS, ANEU #### [address] [address] CO2 [Moles/Vol] 28 mmol/L Normal 23-31 [facility] ([place]) Comment on above: Performed By: #### L RADHA SARGENT MDW, CBC, GFR, CMP, TROPHS, ANEU #### [address] [address] Creatinine [Mass/Vol] 1.17 mg/dL Normal 0.70-1.30 [facility] ([place]) Comment on above: Performed By: #### L RADHA SARGENT MDW, CBC, GFR, CMP, TROPHS, ANEU #### [address] [address] Electrolyte Balance 5.0 mEq/L Normal 4.0-15.0 [facility] ([place]) Comment on above: Performed By: #### L RADHA SARGENT MDW, CBC, GFR, CMP, TROPHS, ANEU #### [address] [address] Globulin 3.1 G/dL Normal [facility] ([place]) Comment on above: Performed By: #### L RADHA SARGENT MDW, CBC, GFR, CMP, TROPHS, ANEU #### [address] [address] Glucose [Mass/Vol] 211 mg/dL High 80-115 [facility] ([place]) Comment on above: Performed By: #### L RADHA SARGENT MDW, CBC, GFR, CMP, TROPHS, ANEU #### [place] [id number] Potassium [Moles/Vol] 5.4 mmol/L High 3.5-5.1 [facility] ([place]) Comment on above: Performed By: #### L RADHA SARGENT MDW, CBC, GFR, CMP, TROPHS, ANEU #### [address] [address] Sodium [Moles/Vol] 138 mmol/L Normal 136-145 [facility] ([place]) Comment on above: Performed By: #### L RADHA SARGENT MDW, CBC, GFR, CMP, TROPHS, ANEU #### [place] [id number] Total Protein 5.4 G/dL Low 6.4-8.2 [facility] ([place]) Comment on above: Performed By: #### L RADHA SARGENT MDW, CBC, GFR, CMP, TROPHS, ANEU #### [place] [address] Urea nitrogen [Mass/Vol] 7 mg/dL Normal 7-18 [facility] ([place]) Comment on above: Performed By: #### L RADHA SARGENT MDW, CBC, GFR, CMP, TROPHS, ANEU #### [address] [address] FEon 04-01-2023 Iron [Mass/Vol] 79 ug/dL Normal 65-175 [facility] ([place]) Comment on above: Performed By: #### L RADHA SARGENT MDW, CBC, GFR, CMP, TROPHS, ANEU #### [place] [id number] IBCon 04-01-2023 TIBC 118 mcg/dL Low 250-450 [facility] ([place]) Comment on above: Performed By: #### L RADHA SARGENT MDW, CBC, GFR, CMP, TROPHS, ANEU #### [place] [id number] LIPon 04-01-2023 Lipase Level <10 Low 16-77 [facility] ([place]) Comment on above: Performed By: #### L RADHA SARGENT MDW, CBC, GFR, CMP, TROPHS, ANEU #### [address] [address] MGon 04-01-2023 Magnesium [Mass/Vol] 1.9 mg/dL Normal 1.8-2.4 [facility] ([place]) Comment on above: Performed By: #### L RADHA SARGENT MDW, CBC, GFR, CMP, TROPHS, ANEU #### [place] [address] TSHon 04-01-2023 TSH Qn 1.36 m[IU]/L Normal 0.36-3.74 [facility] ([place]) Comment on above: Performed By: #### RADHA COSTA MDW, CBC, GFR, CMP, TROPHS, ANEU #### [place] [address] VIDHon 04-01-2023 Vit. D 25-Hydroxy 41.5 ng/mL Normal [facility] ([place]) Comment on above: Result Comment: Inte rpretive Values Based on Total 25(OH) Vitamin D: Deficient <20 ng/mL Insufficient 20 - <30 ng/mL Sufficient 30-100 ng/mL Performed By: #### L RADHA SARGENT MDW, CBC, GFR, CMP, TROPHS, ANEU #### [place] [address] .Auto Diffon 03-19-2023 Basophil, Absolute 0.0 10 3/mcL Normal 0.0-0.3 [facility] ([place]) Comment on above: Performed By: #### L RADHA SARGENT MDW, CBC, GFR, CMP, TROPHS, ANEU #### [place] [address] Basophils/100 WBC (Bld) 0.8 % Normal 0.0-2.5 [facility] ([place]) Comment on above: Performed By: #### RADHA COSTA MDW, CBC, GFR, CMP, TROPHS, ANEU #### [address] [address] Eosinophil, Absolute 0.1 10 3/mcL Normal 0.0-0.7 [facility] ([place]) Comment on above: Performed By: #### L AC, ADIFF, MDW, CBC, GFR, CMP, TROPHS, ANEU #### [address] [address] Eosinophils/100 WBC (Bld) 2.3 % Normal 0.0-6.0 [facility] ([place]) Comment on above: Performed By: #### L AC, ADIFF, MDW, CBC, GFR, CMP, TROPHS, ANEU #### [address] [address] Lymphocyte, Absolute 1.1 10 3/mcL Normal 0.9-4.3 [facility] ([place]) Comment on above: Performed By: #### L AC, ADIFF, MDW, CBC, GFR, CMP, TROPHS, ANEU #### [address] [address] Lymphocytes/100 WBC (Bld) 18.7 % Low 20.0-40.0 [facility] ([place]) Comment on above: Performed By: #### L AC, ADIFF, MDW, CBC, GFR, CMP, TROPHS, ANEU #### [address] [address] Monocyte, Absolute 0.7 10 3/mcL Normal 0.1-1.4 [facility] ([place]) Comment on above: Performed By: #### L AC, ADBOLIVAR, MDW, CBC, GFR, CMP, TROPHS, ANEU #### [address] [address] Monocytes/100 WBC (Bld) 13.0 % Normal 2.0-13.0 [facility] ([place]) Comment on above: Performed By: #### L AC, ADIFF, MDW, CBC, GFR, CMP, TROPHS, ANEU #### [address] [address] Neutrophils/100 WBC (Bld) 65.2 % Normal 50.0-75.0 [facility] ([place]) Comment on above: Performed By: #### L AC, ADIFF, MDW, CBC, GFR, CMP, TROPHS, ANEU #### [address] [address] .GFRon 03-19-2023 GFR >60 Normal [facility] ([place]) Comment on above: Result Comment: GFR Population [...] MDW, CBC, GFR, CMP, TROPHS, ANEU #### [address] [address] GFR Non- >60 Normal [facility] ([place]) Comment on above: Result Comment: GFR Population [...] MDW, CBC, GFR, CMP, TROPHS, ANEU #### [address] [address] .NEUABSon 03-19-2023 Neutrophil, Absolute 3.7 10 3/mcL Normal 2.3-8.1 [facility] ([place]) Comment on above: Performed By: #### L RADHA SARGENT MDW, CBC, GFR, CMP, TROPHS, ANEU #### [address] [address] BMPon 03-19-2023 BUN/Creatinine Ratio 10.2 ratio Normal 10.0-22.0 [facility] ([place]) Comment on above: Performed By: #### L RADHA SARGENT MDW, CBC, GFR, CMP, TROPHS, ANEU #### [address] [address] Calcium [Mass/Vol] 7.9 mg/dL Low 8.7-10.4 [facility] ([place]) Comment on above: Performed By: #### L RADHA SARGENT MDW, CBC, GFR, CMP, TROPHS, ANEU #### [place] [id number] Chloride [Moles/Vol] 111 mmol/L High 98-110 [facility] ([place]) Comment on above: Performed By: #### L RADHA SARGENT MDW, CBC, GFR, CMP, TROPHS, ANEU #### [place] [id number] CO2 [Moles/Vol] 21 mmol/L Low 22-32 [facility] ([place]) Comment on above: Performed By: #### L RADHA SARGENT MDW, CBC, GFR, CMP, TROPHS, ANEU #### [address] [address] Creatinine [Mass/Vol] 1.08 mg/dL Normal 0.60-1.40 [facility] ([place]) Comment on above: Performed By: #### L RADHA SARGENT MDW, CBC, GFR, CMP, TROPHS, ANEU #### [address] [address] Electrolyte Balance 7.0 mEq/L Normal 4.0-15.0 [facility] ([place]) Comment on above: Performed By: #### L RADHA SARGENT MDW, CBC, GFR, CMP, TROPHS, ANEU #### [address] [address] Glucose [Mass/Vol] 74 mg/dL Low 82-115 [facility] ([place]) Comment on above: Performed By: #### L RADHA SARGENT MDW, CBC, GFR, CMP, TROPHS, ANEU #### [place] [address] Potassium [Moles/Vol] 4.6 mmol/L Normal 3.5-5.0 [facility] ([place]) Comment on above: Performed By: #### L RADHA SARGENT MDW, CBC, GFR, CMP, TROPHS, ANEU #### [place] [address] Sodium [Moles/Vol] 139 mmol/L Normal 136-145 [facility] ([place]) Comment on above: Performed By: #### L RADHA SARGENT MDW, CBC, GFR, CMP, TROPHS, ANEU #### [place] [address] Urea nitrogen [Mass/Vol] 11.0 mg/dL Normal 8.0-22.0 [facility] ([place]) Comment on above: Performed By: #### L RADHA SARGENT MDW, CBC, GFR, CMP, TROPHS, ANEU #### [place] [address] CBCon 03-19-2023 Erythrocyte distribution width (RBC) [Ratio] 14.6 % Normal 11.5-15.5 [facility] ([place]) Comment on above: Performed By: #### L RADHA SARGENT MDW, CBC, GFR, CMP, TROPHS, ANEU #### [place] [address] Hematocrit (Bld) [Volume fraction] 36.3 % Low 40.0-52.0 [facility] ([place]) Comment on above: Performed By: #### L RADHA SARGENT MDW, CBC, GFR, CMP, TROPHS, ANEU #### [place] [address] Hgb 12.2 G/dL Low 13.0-17.5 [facility] ([place]) Comment on above: Performed By: #### L RADHA SARGENT MDW, CBC, GFR, CMP, TROPHS, ANEU #### [place] [phone] MCH (RBC) [Entitic mass] 34.5 pg High 27.0-33.0 [facility] ([place]) Comment on above: Performed By: #### L RADHA SARGENT MDW, CBC, GFR, CMP, TROPHS, ANEU #### [place] [address] MCHC 33.6 G/dL Normal 32.0-36.0 [facility] ([place]) Comment on above: Performed By: #### L RADHA SARGENT MDW, CBC, GFR, CMP, TROPHS, ANEU #### [place] [address] MCV (RBC) [Entitic vol] 102.6 fL High 81.0-100.0 [facility] ([place]) Comment on above: Performed By: #### L RADHA SARGENT MDW, CBC, GFR, CMP, TROPHS, ANEU #### [place] [address] Platelet 165 10 3/mcL Normal 150-450 [facility] ([place]) Comment on above: Performed By: #### L RADAH SARGENT MDW, CBC, GFR, CMP, TROPHS, ANEU #### [place] [address] Platelet mean volume (Bld) [Entitic vol] 8.8 fL Normal 6.4-10.5 [facility] ([place]) Comment on above: Performed By: #### L RADHA SARGENT MDW, CBC, GFR, CMP, TROPHS, ANEU #### [place] [address] RBC 3.53 10 6/mcL Low 4.50-6.00 [facility] ([place]) Comment on above: Performed By: #### L RADHA SARGENT MDW, CBC, GFR, CMP, TROPHS, ANEU #### [place] [address] WBC 5.7 10 3/mcL Normal 4.5-10.8 [facility] ([place]) Comment on above: Performed By: #### L RADHA SARGENT MDW, CBC, GFR, CMP, TROPHS, ANEU #### [facility] [address] [place] [address] LABORATORYOrdered By: Yessica Collazo on 03-19-2023 Blood Glucose Testing Reason Routine (03/19/23 11:18 AM) [facility] Work Phone: Glucose [Mass/Vol] 123 mg/dL High 82 - 115 mg/dL [facility] Work Phone: LABORATORYOrdered By: Esequiel Porter on 03-19-2023 Blood Glucose Testing Reason Routine (03/19/23 8:26 AM) [facility] Work Phone: Glucose [Mass/Vol] 122 mg/dL High 82 - 115 mg/dL [facility] Work Phone: LABORATORYOrdered By: Syd Aguayo on 03-19-2023 Glucose [Mass/Vol] 42 mg/dL Invalid Interpretation Code 82 - 115 mg/dL [facility] Work Phone: LABORATORYOrdered By: SYSTEM SYSTEM [...] (S/P/Bld) [Vol rate/Area] ml/min/1.73sqm Invalid Interpretation Code [facility] Chemistry S Comment on above: Interpretive Data: [...] (S/P/Bld) [Vol rate/Area] ml/min/1.73sqm Invalid Interpretation Code [facility] Chemistry S Comment on above: Interpretive Data: [...] Glucose Testing Reason Routine (03/18/23 9:26 PM) [facility] Work Phone: LABORATORYOrdered By: Lin Hughes on 03-18-2023 Blood Glucose Interventions Retest (03/18/23 8:48 AM) [facility] Work Phone: Blood Glucose Interventions Administered agent to increase blood sugar (03/18/23 7:34 AM) [facility] Work Phone: MRI BRAIN W/O CONTRASTon [...] 03/18/2023 7:45:52 PM Ordering Provider: MARIELY White [facility] ([place]) .Auto Diffon 03-17-2023 Basophil, Absolute 0.1 10 3/mcL Normal 0.0-0.3 [facility] ([place]) Comment on above: Performed By: #### L AC, ADIFF, MDW, CBC, GFR, CMP, TROPHS, ANEU #### [address] [address] Basophils/100 WBC (Bld) 1.3 % Normal 0.0-2.5 [facility] ([place]) Comment on above: Performed By: #### L BELLE, RADHA, W, CBC, GFR, CMP, TROPHS, ANEU #### [address] [address] Eosinophil, Absolute 0.1 10 3/mcL Normal 0.0-0.7 [facility] ([place]) Comment on above: Performed By: #### L BELLE, RADHA, W, CBC, GFR, CMP, TROPHS, ANEU #### [address] [address] Eosinophils/100 WBC (Bld) 2.6 % Normal 0.0-6.0 [facility] ([place]) Comment on above: Performed By: #### L RADHA SARGENT, W, CBC, GFR, CMP, TROPHS, ANEU #### [address] [address] Lymphocyte, Absolute 1.0 10 3/mcL Normal 0.9-4.3 [facility] ([place]) Comment on above: Performed By: #### L RADHA SARGENT, W, CBC, GFR, CMP, TROPHS, ANEU #### [address] [address] Lymphocytes/100 WBC (Bld) 21.5 % Normal 20.0-40.0 [facility] ([place]) Comment on above: Performed By: #### L RADHA SARGENT, W, CBC, GFR, CMP, TROPHS, ANEU #### [address] [address] Monocyte, Absolute 0.5 10 3/mcL Normal 0.1-1.4 [facility] ([place]) Comment on above: Performed By: #### L BELLE, RADHA, W, CBC, GFR, CMP, TROPHS, ANEU #### [address] [address] Monocytes/100 WBC (Bld) 11.9 % Normal 2.0-13.0 [facility] ([place]) Comment on above: Performed By: #### L RADHA SARGENT MDW, CBC, GFR, CMP, TROPHS, ANEU #### [address] [address] Neutrophils/100 WBC (Bld) 62.7 % Normal 50.0-75.0 [facility] ([place]) Comment on above: Performed By: #### L RADHA SARGENT MDW, CBC, GFR, CMP, TROPHS, ANEU #### [address] [address] .GFRon 03-17-2023 GFR >60 Normal [facility] ([place]) Comment on above: Result Comment: GFR Population [...] MDW, CBC, GFR, CMP, TROPHS, ANEU #### [address] [address] GFR Non- >60 Normal [facility] ([place]) Comment on above: Result Comment: GFR Population [...] MDW, CBC, GFR, CMP, TROPHS, ANEU #### [address] [address] .NEUABSon 03-17-2023 Neutrophil, Absolute 2.8 10 3/mcL Normal 2.3-8.1 [facility] ([place]) Comment on above: Performed By: #### RADHA COSTA MDW, CBC, GFR, CMP, TROPHS, ANEU #### [address] [address] BMPon 03-17-2023 BUN/Creatinine Ratio 10.7 ratio Normal 10.0-22.0 [facility] ([place]) Comment on above: Performed By: #### L RADHA SARGENT MDW, CBC, GFR, CMP, TROPHS, ANEU #### [address] [address] Calcium [Mass/Vol] 8.5 mg/dL Low 8.7-10.4 [facility] ([place]) Comment on above: Performed By: #### L RADHA SARGENT MDW, CBC, GFR, CMP, TROPHS, ANEU #### [address] [address] Chloride [Moles/Vol] 109 mmol/L Normal 98-110 [facility] ([place]) Comment on above: Performed By: #### RADHA COSTA MDW, CBC, GFR, CMP, TROPHS, ANEU #### [address] [address] CO2 [Moles/Vol] 27 mmol/L Normal 22-32 [facility] ([place]) Comment on above: Performed By: #### L RADHA SARGENT MDW, CBC, GFR, CMP, TROPHS, ANEU #### [address] [address] Creatinine [Mass/Vol] 0.84 mg/dL Normal 0.60-1.40 [facility] ([place]) Comment on above: Performed By: #### L RADHA SARGENT MDW, CBC, GFR, CMP, TROPHS, ANEU #### [place] [address] Electrolyte Balance 3.0 mEq/L Low 4.0-15.0 [facility] ([place]) Comment on above: Performed By: #### L RADHA SARGENT MDW, CBC, GFR, CMP, TROPHS, ANEU #### [place] [address] Glucose [Mass/Vol] 69 mg/dL Low 82-115 [facility] ([place]) Comment on above: Performed By: #### L RADHA SARGENT MDW, CBC, GFR, CMP, TROPHS, ANEU #### [place] [address] Potassium [Moles/Vol] 4.4 mmol/L Normal 3.5-5.0 [facility] ([place]) Comment on above: Performed By: #### L RADHA SARGENT MDW, CBC, GFR, CMP, TROPHS, ANEU #### [place] [address] Sodium [Moles/Vol] 139 mmol/L Normal 136-145 [facility] ([place]) Comment on above: Performed By: #### L RADHA SARGENT MDW, CBC, GFR, CMP, TROPHS, ANEU #### [place] [address] Urea nitrogen [Mass/Vol] 9.0 mg/dL Normal 8.0-22.0 [facility] ([place]) Comment on above: Performed By: #### L RADHA SARGENT MDW, CBC, GFR, CMP, TROPHS, ANEU #### [place] [address] CBCon 03-17-2023 Erythrocyte distribution width (RBC) [Ratio] 14.3 % Normal 11.5-15.5 [facility] ([place]) Comment on above: Performed By: #### L RADHA SARGENT MDW, CBC, GFR, CMP, TROPHS, ANEU #### [facility] [address] [place], [place] [address] Hematocrit (Bld) [Volume fraction] 37.6 % Low 40.0-52.0 [facility] ([place]) Comment on above: Performed By: #### L RADHA SARGENT MDW, CBC, GFR, CMP, TROPHS, ANEU #### [address] [address] Hgb 12.7 G/dL Low 13.0-17.5 [facility] ([place]) Comment on above: Performed By: #### L RADHA SARGENT MDW, CBC, GFR, CMP, TROPHS, ANEU #### [place] [phone] MCH (RBC) [Entitic mass] 34.2 pg High 27.0-33.0 [facility] ([place]) Comment on above: Performed By: #### L RADHA SARGENT MDW, CBC, GFR, CMP, TROPHS, ANEU #### [place] [id number] MCHC 33.7 G/dL Normal 32.0-36.0 [facility] ([place]) Comment on above: Performed By: #### L RADHA SARGENT MDW, CBC, GFR, CMP, TROPHS, ANEU #### [place] [id number] MCV (RBC) [Entitic vol] 101.7 fL High 81.0-100.0 [facility] ([place]) Comment on above: Performed By: #### L RADHA SARGENT MDW, CBC, GFR, CMP, TROPHS, ANEU #### [place] [address] Platelet 189 10 3/mcL Normal 150-450 [facility] ([place]) Comment on above: Performed By: #### L RADHA SARGENT MDW, CBC, GFR, CMP, TROPHS, ANEU #### [place] [id number] Platelet mean volume (Bld) [Entitic vol] 9.1 fL Normal 6.4-10.5 [facility] ([place]) Comment on above: Performed By: #### L RADHA SARGENT MDW, CBC, GFR, CMP, TROPHS, ANEU #### [place] [address] RBC 3.70 10 6/mcL Low 4.50-6.00 [facility] ([place]) Comment on above: Performed By: #### L RADHA SARGENT MDW, CBC, GFR, CMP, TROPHS, ANEU #### [place] [id number] WBC 4.4 10 3/mcL Low 4.5-10.8 [facility] ([place]) Comment on above: Performed By: #### L RADHA SARGENT MDW, CBC, GFR, CMP, TROPHS, ANEU #### [place] [address] LABORATORYOrdered By: SYSTEM SYSTEM on 03-17-2023 Basophils [...] Basophil, Absolute 0.0 10 3/mcL Normal 0.0-0.3 [facility] ([place]) Comment on above: Performed By: #### L RADHA SARGENT MDW, CBC, GFR, CMP, TROPHS, ANEU #### [facility] [address] [place] [address] Basophils/100 WBC (Bld) 0.4 % Normal 0.0-2.5 [facility] ([place]) Comment on above: Performed By: #### L AC, ADIFF, MDW, CBC, GFR, CMP, TROPHS, ANEU #### [address] [address] Eosinophil, Absolute 0.1 10 3/mcL Normal 0.0-0.7 [facility] ([place]) Comment on above: Performed By: #### L AC, ADIFF, MDW, CBC, GFR, CMP, TROPHS, ANEU #### [address] [address] Eosinophils/100 WBC (Bld) 1.2 % Normal 0.0-6.0 [facility] ([place]) Comment on above: Performed By: #### L AC, ADIFF, MDW, CBC, GFR, CMP, TROPHS, ANEU #### [address] [address] Lymphocyte, Absolute 0.8 10 3/mcL Low 0.9-4.3 [facility] ([place]) Comment on above: Performed By: #### L AC, ADIFF, MDW, CBC, GFR, CMP, TROPHS, ANEU #### [address] [address] Lymphocytes/100 WBC (Bld) 11.6 % Low 20.0-40.0 [facility] ([place]) Comment on above: Performed By: #### L AC, ADIFF, MDW, CBC, GFR, CMP, TROPHS, ANEU #### [address] [address] Monocyte, Absolute 0.6 10 3/mcL Normal 0.1-1.4 [facility] ([place]) Comment on above: Performed By: #### L AC, ADIFF, MDW, CBC, GFR, CMP, TROPHS, ANEU #### [address] [address] Monocytes/100 WBC (Bld) 8.3 % Normal 2.0-13.0 [facility] ([place]) Comment on above: Performed By: #### L AC, ADIFF, MDW, CBC, GFR, CMP, TROPHS, ANEU #### [address] [address] Neutrophils/100 WBC (Bld) 78.5 % High 50.0-75.0 [facility] ([place]) Comment on above: Performed By: #### L RADHA SARGENT MDW, CBC, GFR, CMP, TROPHS, ANEU #### [address] [address] .GFRon 03-16-2023 GFR Non- >60 Normal [facility] ([place]) Comment on above: Result Comment: GFR Population [...] MDW, CBC, GFR, CMP, TROPHS, ANEU #### [address] [address] GFR >60 Normal [facility] ([place]) Comment on above: Result Comment: GFR Population [...] MDW, CBC, GFR, CMP, TROPHS, ANEU #### [address] [address] .NEUABSon 03-16-2023 Neutrophil, Absolute 5.3 10 3/mcL Normal 2.3-8.1 [facility] ([place]) Comment on above: Performed By: #### L RADHA SARGENT MDW, CBC, GFR, CMP, TROPHS, ANEU #### [address] [address] BMPon 03-16-2023 BUN/Creatinine Ratio 9.0 ratio Low 10.0-22.0 [facility] ([place]) Comment on above: Performed By: #### L RADHA SARGENT MDW, CBC, GFR, CMP, TROPHS, ANEU #### [address] [address] Calcium [Mass/Vol] 8.1 mg/dL Low 8.7-10.4 [facility] ([place]) Comment on above: Performed By: #### L RADHA SARGENT MDW, CBC, GFR, CMP, TROPHS, ANEU #### [address] [address] Chloride [Moles/Vol] 110 mmol/L Normal 98-110 [facility] ([place]) Comment on above: Performed By: #### RADHA COSTA MDW, CBC, GFR, CMP, TROPHS, ANEU #### [address] [address] CO2 [Moles/Vol] 26 mmol/L Normal 22-32 [facility] ([place]) Comment on above: Performed By: #### RADHA COSTA MDW, CBC, GFR, CMP, TROPHS, ANEU #### [address] [address] Creatinine [Mass/Vol] 0.89 mg/dL Normal 0.60-1.40 [facility] ([place]) Comment on above: Performed By: #### L RADHA SARGENT MDW, CBC, GFR, CMP, TROPHS, ANEU #### [address] [address] Electrolyte Balance 1.0 mEq/L Low 4.0-15.0 [facility] ([place]) Comment on above: Performed By: #### L RADHA SARGENT MDW, CBC, GFR, CMP, TROPHS, ANEU #### [address] [address] Glucose [Mass/Vol] 263 mg/dL High 82-115 [facility] ([place]) Comment on above: Performed By: #### L RADHA SARGNET MDW, CBC, GFR, CMP, TROPHS, ANEU #### [place] [id number] Potassium [Moles/Vol] 4.7 mmol/L Normal 3.5-5.0 [facility] ([place]) Comment on above: Result Comment: Spec imen slightly hemolyzed. Performed By: #### L RADHA SARGENT MDW, CBC, GFR, CMP, TROPHS, ANEU #### [place] [address] Sodium [Moles/Vol] 137 mmol/L Normal 136-145 [facility] ([place]) Comment on above: Performed By: #### L RADHA SARGENT MDW, CBC, GFR, CMP, TROPHS, ANEU #### [place] [id number] Urea nitrogen [Mass/Vol] 8.0 mg/dL Normal 8.0-22.0 [facility] ([place]) Comment on above: Performed By: #### L RADHA SARGENT MDW, CBC, GFR, CMP, TROPHS, ANEU #### [place] [id number] CBCon 03-16-2023 Erythrocyte distribution width (RBC) [Ratio] 14.7 % Normal 11.5-15.5 [facility] ([place]) Comment on above: Performed By: #### L RADHA SARGENT MDW, CBC, GFR, CMP, TROPHS, ANEU #### [place] [id number] Hematocrit (Bld) [Volume fraction] 38.7 % Low 40.0-52.0 [facility] ([place]) Comment on above: Performed By: #### L RADHA SARGENT MDW, CBC, GFR, CMP, TROPHS, ANEU #### [place] [address] Hgb 13.0 G/dL Normal 13.0-17.5 [facility] ([place]) Comment on above: Performed By: #### L RADHA SARGENT MDW, CBC, GFR, CMP, TROPHS, ANEU #### [place] [address] MCH (RBC) [Entitic mass] 34.1 pg High 27.0-33.0 [facility] ([place]) Comment on above: Performed By: #### L RADHA SARGENT MDW, CBC, GFR, CMP, TROPHS, ANEU #### [place] [address] MCHC 33.5 G/dL Normal 32.0-36.0 [facility] ([place]) Comment on above: Performed By: #### L RADHA SARGENT MDW, CBC, GFR, CMP, TROPHS, ANEU #### [place] [address] MCV (RBC) [Entitic vol] 101.7 fL High 81.0-100.0 [facility] ([place]) Comment on above: Performed By: #### L RADHA SARGENT MDW, CBC, GFR, CMP, TROPHS, ANEU #### [place] [address] Platelet 196 10 3/mcL Normal 150-450 [facility] ([place]) Comment on above: Performed By: #### L RADHA SARGENT MDW, CBC, GFR, CMP, TROPHS, ANEU #### [place] [address] Platelet mean volume (Bld) [Entitic vol] 8.6 fL Normal 6.4-10.5 [facility] ([place]) Comment on above: Performed By: #### L RADHA SARGENT MDW, CBC, GFR, CMP, TROPHS, ANEU #### [place] [address] RBC 3.80 10 6/mcL Low 4.50-6.00 [facility] ([place]) Comment on above: Performed By: #### L RADHA SARGENT MDW, CBC, GFR, CMP, TROPHS, ANEU #### [address] [address] WBC 6.7 10 3/mcL Normal 4.5-10.8 [facility] ([place]) Comment on above: Performed By: #### L RADHA SARGENT MDW, CBC, GFR, CMP, TROPHS, ANEU #### [address] [address] LABORATORYOrdered By: SYSTEM SYSTEM on 03-16-2023 Calcium [...] (S/P/Bld) [Vol rate/Area] ml/min/1.73sqm Invalid Interpretation Code [facility] Chemistry S Comment on above: Interpretive Data: [...] (S/P/Bld) [Vol rate/Area] ml/min/1.73sqm Invalid Interpretation Code [facility] Chemistry S Comment on above: Interpretive Data: [...] 03-16-2023 Magnesium [Mass/Vol] 1.8 mg/dL Normal 1.6-2.4 [facility] ([place]) Comment on above: Performed By: #### L BELLE, RADHA, KEIKO, CBC, GFR, CMP, TROPHS, ANEU #### [place] [address] PHOSon 03-16-2023 Phosphate [Mass/Vol] 4.6 mg/dL Normal 2.4-5.1 [facility] ([place]) Comment on above: Result Comment: No te - New Reference Range in effect 19 Performed By: #### L RADHA SARGENT MDW, CBC, GFR, CMP, TROPHS, ANEU #### [address] [address] .Auto Diffon 03-15-2023 Basophil, Absolute 0.0 10 3/mcL Normal 0.0-0.3 [facility] ([place]) Comment on above: Performed By: #### L RADHA SARGENT MDW, CBC, GFR, CMP, TROPHS, ANEU #### [address] [address] Basophils/100 WBC (Bld) 0.9 % Normal 0.0-2.5 [facility] ([place]) Comment on above: Performed By: #### L RADHA SARGENT MDW, CBC, GFR, CMP, TROPHS, ANEU #### [address] [address] Eosinophil, Absolute 0.1 10 3/mcL Normal 0.0-0.7 [facility] ([place]) Comment on above: Performed By: #### L RADHA SARGENT MDW, CBC, GFR, CMP, TROPHS, ANEU #### [address] [address] Eosinophils/100 WBC (Bld) 2.5 % Normal 0.0-6.0 [facility] ([place]) Comment on above: Performed By: #### L RADHA SARGENT MDW, CBC, GFR, CMP, TROPHS, ANEU #### [address] [address] Lymphocyte, Absolute 1.5 10 3/mcL Normal 0.9-4.3 [facility] ([place]) Comment on above: Performed By: #### L RADHA SARGENT MDW, CBC, GFR, CMP, TROPHS, ANEU #### [address] [address] Lymphocytes/100 WBC (Bld) 27.6 % Normal 20.0-40.0 [facility] ([place]) Comment on above: Performed By: #### L RADHA SARGENT MDW, CBC, GFR, CMP, TROPHS, ANEU #### [address] [address] Monocyte, Absolute 0.5 10 3/mcL Normal 0.1-1.4 [facility] ([place]) Comment on above: Performed By: #### L RADHA SARGENT MDW, CBC, GFR, CMP, TROPHS, ANEU #### [address] [address] Monocytes/100 WBC (Bld) 8.7 % Normal 2.0-13.0 [facility] ([place]) Comment on above: Performed By: #### L RADHA SARGENT MDW, CBC, GFR, CMP, TROPHS, ANEU #### [address] [address] Neutrophils/100 WBC (Bld) 60.3 % Normal 50.0-75.0 [facility] ([place]) Comment on above: Performed By: #### L RADHA SARGENT MDW, CBC, GFR, CMP, TROPHS, ANEU #### [address] [address] .GFRon 03-15-2023 GFR Non- >60 Normal [facility] ([place]) Comment on above: Result Comment: GFR Population [...] MDW, CBC, GFR, CMP, TROPHS, ANEU #### [place] [address] GFR >60 Normal [facility] ([place]) Comment on above: Result Comment: GFR Population [...] KEIKO, CBC, GFR, CMP, TROPHS, ANEU #### [place] [address] .MDWon 03-15-2023 Monocyte Distribution Width 17.99 Normal 0.00-20.00 [facility] ([place]) Comment on above: Result Comment: For ED adult patients suspected of sepsis, MDW<=20.0 does not rule out sepsis or risk of sepsis Performed By: #### L RADHA SARGENT MDW, CBC, GFR, CMP, TROPHS, ANEU #### [place] [address] .NEUABSon 03-15-2023 Neutrophil, Absolute 3.2 10 3/mcL Normal 2.3-8.1 [facility] ([place]) Comment on above: Performed By: #### L RADHA SARGENT MDW, CBC, GFR, CMP, TROPHS, ANEU #### [place] [address] Wilbert 03-15-2023 Ammonia 27 mcmol/l Normal 11-32 [facility] ([place]) Comment on above: Result Comment: Spec imen slightly hemolyzed. Performed By: #### L RADHA SARGENT, W, CBC, GFR, CMP, TROPHS, ANEU #### [place] [address] APTTon 03-15-2023 aPTT Coag (Bld) [Time] 29.7 s Normal 25.0-35.0 [facility] ([place]) Comment on above: Order Comment: blue top clotted. called ann-marie. Result Comment: For Heparin anticoagulation therapy, the recommended therapeutic range is: 54-77 seconds (APTT Correlation with Anti-Xa therapeutic range of 0.3-0.7 units/ml). PLEASE REFERENCE THE PHARMACY PROTOCOL FOR DOSING. Performed By: #### L RADHA SARGENT MDW, CBC, GFR, CMP, TROPHS, ANEU #### [place] [address] Heparin dose (APTT) Unknown Normal [facility] ([place]) Comment on above: Order Comment: blue top clotted. called ann-marie. Performed By: #### L RADHA SARGENT MDW, CBC, GFR, CMP, TROPHS, ANEU #### [place] [address] CBCon 03-15-2023 Erythrocyte distribution width (RBC) [Ratio] 14.7 % Normal 11.5-15.5 [facility] ([place]) Comment on above: Performed By: #### L RADHA SARGENT MDW, CBC, GFR, CMP, TROPHS, ANEU #### [place] [address] Hematocrit (Bld) [Volume fraction] 38.5 % Low 40.0-52.0 [facility] ([place]) Comment on above: Performed By: #### RADHA COSTA MDW, CBC, GFR, CMP, TROPHS, ANEU #### [place] [address] Hgb 12.8 G/dL Low 13.0-17.5 [facility] ([place]) Comment on above: Performed By: #### RADHA COSTA MDW, CBC, GFR, CMP, TROPHS, ANEU #### [place] [address] MCH (RBC) [Entitic mass] 34.0 pg High 27.0-33.0 [facility] ([place]) Comment on above: Performed By: #### L RADHA SARGENT MDW, CBC, GFR, CMP, TROPHS, ANEU #### [place] [address] MCHC 33.1 G/dL Normal 32.0-36.0 [facility] ([place]) Comment on above: Performed By: #### L RADHA SARGENT MDW, CBC, GFR, CMP, TROPHS, ANEU #### [place] [address] MCV (RBC) [Entitic vol] 102.6 fL High 81.0-100.0 [facility] ([place]) Comment on above: Performed By: #### L RADHA SARGENT MDW, CBC, GFR, CMP, TROPHS, ANEU #### [place] [address] Platelet 204 10 3/mcL Normal 150-450 [facility] ([place]) Comment on above: Performed By: #### L RADHA SARGENT MDW, CBC, GFR, CMP, TROPHS, ANEU #### [place] [id number] Platelet mean volume (Bld) [Entitic vol] 9.0 fL Normal 6.4-10.5 [facility] ([place]) Comment on above: Performed By: #### L RADHA SARGENT MDW, CBC, GFR, CMP, TROPHS, ANEU #### [place] [address] RBC 3.75 10 6/mcL Low 4.50-6.00 [facility] ([place]) Comment on above: Performed By: #### L RADHA SARGENT MDW, CBC, GFR, CMP, TROPHS, ANEU #### [place] [address] WBC 5.3 10 3/mcL Normal 4.5-10.8 [facility] ([place]) Comment on above: Performed By: #### L RADHA SARGENT MDW, CBC, GFR, CMP, TROPHS, ANEU #### [place] [address] CMPon 03-15-2023 Albumin Level 2.4 G/dL Low 3.2-4.8 [facility] ([place]) Comment on above: Performed By: #### L RADHA SARGENT MDW, CBC, GFR, CMP, TROPHS, ANEU #### [address] [address] Albumin/Globulin [Mass ratio] 0.9 {ratio} Normal 0.9-1.6 [facility] ([place]) Comment on above: Performed By: #### L RADHA SARGENT MDW, CBC, GFR, CMP, TROPHS, ANEU #### [address] [address] ALP [Catalytic activity/Vol] 125 U/L Normal 38-126 [facility] ([place]) Comment on above: Performed By: #### L RADHA SARGENT MDW, CBC, GFR, CMP, TROPHS, ANEU #### [place] [id number] ALT [Catalytic activity/Vol] 29 U/L Normal 12-55 [facility] ([place]) Comment on above: Performed By: #### L RADHA SARGENT MDW, CBC, GFR, CMP, TROPHS, ANEU #### [address] [address] AST [Catalytic activity/Vol] 53 U/L High 8-34 [facility] ([place]) Comment on above: Performed By: #### L RADHA SARGENT MDW, CBC, GFR, CMP, TROPHS, ANEU #### [place] [id number] Bili Total <0.20 Normal 0.20-1.20 [facility] ([place]) Comment on above: Result Comment: Use of this assay is not recommended for patients undergoing treatment with eltrombopag due to the potential for falsely elevated results. Performed By: #### L RADHA SARGENT MDW, CBC, GFR, CMP, TROPHS, ANEU #### [address] [address] Calcium [Mass/Vol] 8.0 mg/dL Low 8.7-10.4 [facility] ([place]) Comment on above: Performed By: #### L RADHA SARGENT MDW, CBC, GFR, CMP, TROPHS, ANEU #### [address] [address] Chloride [Moles/Vol] 110 mmol/L Normal 98-110 [facility] ([place]) Comment on above: Performed By: #### L RADHA SARGENT MDW, CBC, GFR, CMP, TROPHS, ANEU #### [address] [address] CO2 [Moles/Vol] 23 mmol/L Normal 22-32 [facility] ([place]) Comment on above: Performed By: #### L RADHA SARGENT MDW, CBC, GFR, CMP, TROPHS, ANEU #### [address] [address] Creatinine [Mass/Vol] 0.92 mg/dL Normal 0.60-1.40 [facility] ([place]) Comment on above: Performed By: #### L RADHA SARGENT MDW, CBC, GFR, CMP, TROPHS, ANEU #### [address] [address] Electrolyte Balance 8.0 mEq/L Normal 4.0-15.0 [facility] ([place]) Comment on above: Performed By: #### L RADHA SARGENT MDW, CBC, GFR, CMP, TROPHS, ANEU #### [address] [address] Globulin 2.8 G/dL Normal 1.5-3.8 [facility] ([place]) Comment on above: Performed By: #### L RADHA SARGENT MDW, CBC, GFR, CMP, TROPHS, ANEU #### [address] [address] Glucose [Mass/Vol] 241 mg/dL High 82-115 [facility] ([place]) Comment on above: Performed By: #### L RADHA SARGENT MDW, CBC, GFR, CMP, TROPHS, ANEU #### [address] [address] Potassium [Moles/Vol] 4.1 mmol/L Normal 3.5-5.0 [facility] ([place]) Comment on above: Result Comment: Spec imen slightly hemolyzed. Performed By: #### L RADHA SARGENT MDW, CBC, GFR, CMP, TROPHS, ANEU #### [address] [address] Sodium [Moles/Vol] 141 mmol/L Normal 136-145 [facility] ([place] Comment on above: Performed By: #### L RADHA SARGENT MDW, CBC, GFR, CMP, TROPHS, ANEU #### [address] [address] Total Protein 5.2 G/dL Low 5.7-8.2 [facility] ([place]) Comment on above: Result Comment: No te - New Reference Range in effect 19 Performed By: #### L RADHA SARGENT MDW, CBC, GFR, CMP, TROPHS, ANEU #### [address] [address] Urea nitrogen [Mass/Vol] mg/dL Low 8.0-22.0 [facility] ([place]) Comment on above: Performed By: #### L RADHA SARGENT MDW, CBC, GFR, CMP, TROPHS, ANEU #### [address] [address] Urea nitrogen/Creatinine [Mass ratio] mg/mg Low 10.0-22.0 [facility] ([place]) Comment on above: Performed By: #### L RADHA SARGENT MDW, CBC, GFR, CMP, TROPHS, ANEU #### [address] [address] [address] ABD/PELVIS W/ IV CONTRAST ONLYon 03-15-2023 [...] 03/15/2023 3:04:31 PM Ordering Provider: PEREZ RIBEIRO [facility] ([place]) CT HEAD OR BRAIN W/O CONTRDUANE Ton [...] 03/15/2023 2:37:44 PM Ordering Provider: PEREZ White [facility]) CVFLURVon 03-15-2023 FLU A PCR Negative Normal Negative [facility]) Comment on above: Result Comment: Note s 1990 Performed By: #### L RADHA SARGENT MDW, CBC, GFR, CMP, TROPHS, ANEU #### [address] [address] FLU B PCR Negative Normal Negative [facility] ([place]) Comment on above: Result Comment: Note s 1990 Performed By: #### L RADHA SARGENT MDW, CBC, GFR, CMP, TROPHS, ANEU #### [address] [address] RSV PCR Negative Normal Negative [facility] ([place]) Comment on above: Result Comment: Note s 1990 Performed By: #### L RADHA SARGENT MDW, CBC, GFR, CMP, TROPHS, ANEU #### [address] [address] SARS-CoV-2 (COVID-19) RNA GENEVA+probe Ql (Unsp spec) Negative Normal Negative [facility]) Comment on above: Result Comment: Note s [...] MDW, CBC, GFR, CMP, TROPHS, ANEU #### [place] [address] LABORATORYOrdered By: SYSTEM SYSTEM on 03-15-2023 Ammonia [...] Lactic Acid Lvl 2.2 mmol/L High 0.2-2.0 [facility] ([place]) Comment on above: Performed By: #### L RADHA SARGENT MDW, CBC, GFR, CMP, TROPHS, ANEU #### [place] [address] Lactic Acid Lvl 4.2 mmol/L High 0.2-2.0 [facility] ([place]) Comment on above: Performed By: #### L RADHA SARGENT MDW, CBC, GFR, CMP, TROPHS, ANEU #### [address] [address] No Panel Informationon 03-15 Culture Urine No growth at 48 hours. [facility] Work Phone: Microscopic examination of blood, culture Culture has been received in lab and is no growth to date. Routine cultures are held for 5 days. [facility] Work Phone: TROPHSon 03-15-2023 Troponin I High Sensitivity 6.63 ng/L Normal 0.00-54.00 [facility] ([place]) Comment on above: Performed By: #### L RADHA SARGENT MDW, CBC, GFR, CMP, TROPHS, ANEU #### [address] [address] UAon 03-15-2023 Color (U) Yellow Normal [facility] ([place]) Comment on above: Performed By: #### L RADHA SARGENT MDW, CBC, GFR, CMP, TROPHS, ANEU #### [address] [address] Glucose (U) [Mass/Vol] mg/dL Abnormal Negative [facility] ([place]) Comment on above: Performed By: #### L RADHA SARGENT MDW, CBC, GFR, CMP, TROPHS, ANEU #### [address] [address] Ketones Ql (U) Negative Normal Neg-Trace [facility] ([place]) Comment on above: Performed By: #### L RADHA SARGENT MDW, CBC, GFR, CMP, TROPHS, ANEU #### [address] [address] UA Appear Clear Normal Clear [facility] ([place]) Comment on above: Performed By: #### L RADHA SARGENT MDW, CBC, GFR, CMP, TROPHS, ANEU #### [address] [address] UA Blood Trace Normal Neg-Trace [facility] ([place]) Comment on above: Performed By: #### L RADHA SARGENT MDW, CBC, GFR, CMP, TROPHS, ANEU #### [address] [address] UA Leuk Est Negative Normal Negative [facility] ([place]) Comment on above: Performed By: #### L RADHA SARGENT MDW, CBC, GFR, CMP, TROPHS, ANEU #### [address] [address] UA Nitrite Negative Normal Negative [facility] ([place]) Comment on above: Performed By: #### L RADHA SARGENT MDW, CBC, GFR, CMP, TROPHS, ANEU #### [address] [address] UA pH 7.0 Normal 5.0 - 8.0 [facility] ([place]) Comment on above: Performed By: #### L RADHA SARGENT MDW, CBC, GFR, CMP, TROPHS, ANEU #### [address] [address] UA Protein Negative Normal Negative [facility] ([place]) Comment on above: Performed By: #### L RADHA SARGENT MDW, CBC, GFR, CMP, TROPHS, ANEU #### [address] [address] UA Spec Grav <=1.005 Abnormal 1.006-1.029 [facility] ([place]) Comment on above: Performed By: #### L RADHA SARGENT MDW, CBC, GFR, CMP, TROPHS, ANEU #### [facility] [address] [place] [address] UA Specimen Type Clean Catch Normal [facility] ([place]) Comment on above: Performed By: #### L RADHA SARGENT MDW, CBC, GFR, CMP, TROPHS, ANEU #### [facility] [address] [place] [address] UA Urobilinogen 0.2 E.U./dL Normal 0.2-1.0 [facility] ([place]) Comment on above: Performed By: #### L RADHA SARGENT MDW, CBC, GFR, CMP, TROPHS, ANEU #### [place] [address] Urobilinogen (U) [Mass/Vol] Negative Normal Neg-Trace [facility] ([place]) Comment on above: Performed By: #### L RADHA SARGENT MDW, CBC, GFR, CMP, TROPHS, ANEU #### [place] [address] XR CHEST 1 VIEWon 03-15-2023 XR CHEST [...] 03/15/2023 11:32:58 AM Ordering Provider: PEREZ RIBEIRO [facility] ([place]) Absolute lymphocyte countOrd ered By: Vinh Lomeli on 11-01-2022 Lymphocytes Auto (Unsp spec) [#/Vol] 1.39 10*3/uL 0.83-4.[address] [facility] Basophil percentageOrdered B y: Vinh Lomeli on 11-01-2022 Basophils/100 WBC (Bld) 1.1 % 0-1 [facility] Bilirubin [Mass/Vol] 0.40 mg/dL 0.20-1.00 [facility] Comment on above: For patients on eltr ombopag therapy, use of [employer] TBIL is not recommended. Chloride [Moles/Vol] 101 mmol/L 98-107 [facility] Eosinophils/100 WBC (Bld) 1.1 % 0-[address] [facility] Glucose [Mass/Vol] 205 mg/dL 74-106 [facility] Comment on above: Glucose result great er than or equal to 200 mg/dLsuggests DIABETES MELLITUS per A.D.A. criteria. Neutrophils (Bld) [#/Vol] 4.4 10*3/uL 2.0-7.[address] [facility] Neutrophils/100 WBC (Bld) 67.9 % 47-[address] [facility] Potassium [Moles/Vol] 3.1 mmol/L 3.5-5.1 [facility] Protein [Mass/Vol] 6.5 g/dL 6.4-8.2 [facility] Sodium [Moles/Vol] 141 mmol/L 136-145 [facility] WBC (Bld) [#/Vol] 6.5 10*3/uL 4.4-11.0 [facility] Blood erythrocytes count (nu mber/volume)Ordered By: Vinh Lomeli on 11-01-2022 RBC (Bld) [#/Vol] 4.33 10*6/uL 4.6-6.2 [facility] Blood hemoglobin measurement (mass/volume)Ordered By: Vinh Lomeli on 11-01-2022 Hemoglobin (Bld) [Mass/Vol] 14.1 g/dL 13.0-16.[address] [facility] Blood lymphocytes/100 leukoc ytesOrdered By: Vinh Lomeli on 11-01-2022 Lymphocytes/100 WBC (Bld) 21.5 % 19-[address] [facility] Blood monocytes/100 leukocyt esOrdered By: Vinh Lomeli on 11-01-2022 Monocytes/100 WBC (Bld) 7.9 % 0-10 [facility] Blood platelet mean volumeOr dered By: Vinh Lomeli on 11-01-2022 Platelet mean volume (Bld) [Entitic vol] 10.7 fL 6.2-12.[address] [facility] Determination of erythrocyte mean corpuscular volume (MCV)Ordered By: Vinh Lomeli on 11-01-2022 MCV (RBC) [Entitic vol] 96.8 fL 80-94 [facility] Hematocrit Auto (Bld) [Volum e fraction]Ordered By: Vinh Lomeli on 11-01-2022 Hematocrit (Bld) [Volume fraction] 41.9 % 40-[address] [facility] Laboratory - Chemistry and C hemistry - challengeOrdered By: Vinh Lomeli on 11-01-2022 ALP [Catalytic activity/Vol] 196 U/L 45-[address] [facility] ALT [Catalytic activity/Vol] 189 U/L 16-[address] [facility] CO2 [Moles/Vol] 31.0 mmol/L 21.0-32.[address] [facility] Globulin (S) [Mass/Vol] 3.5 g/dL 2.2-4.2 [facility] Lipase [Catalytic activity/Vol] U/L 13-[address] [facility] Comment on above: Please note:LIPASE r evised reference range effective 22. New Lipase methodology. Expected to produce lower values than the previous assay method. NEW Reference Range: 13 - 75 U/L Urea nitrogen/Creatinine [Mass ratio] 5.0 mg/mg 10-[address] [facility] Laboratory - Hematology and Cell countsOrdered By: Vinh Lomeli on 11-01-2022 Erythrocyte distribution width (RBC) [Entitic vol] 45.1 fL 35.1-43.[address] [facility] Erythrocyte distribution width (RBC) [Ratio] 12.5 % 11.6-14.[address] [facility] Immature granulocytes/100 WBC (Bld) 0.500 % 0.0-0.[address] [facility] Comment on above: IG% - Immature Granu locytes (promyelocytes, myelocytes and metamyelocytes) > 1% indicates that a LEFT SHIFT is Present. MCH (RBC) [Entitic mass] 32.6 pg 27.0-32.[address] [facility] Nucleated RBC/100 WBC (Bld) [Ratio] 0 % 0-[address] [facility] MCHC Auto (RBC) [Mass/Vol]Or dered By: Vinh Lomeli on 11-01-2022 MCHC (RBC) [Mass/Vol] 33.7 g/dL 32-36 [facility] No Panel InformationOrdered By: Vinh Lomeli on 11-01-2022 Estimated Creatinine Clearance Calc 70.71 ml/min [facility] Estimated GFR (MDRD) Amer 97 mL/min >[address] [facility] Comment on above: GFR Calc Estimated GFR (MDRD) Non-Af Amer 80 mL/min >[address] [facility] Comment on above: Non- GFR Calc Platelets bldOrdered By: Jasvir Lomeli on 11-01-2022 Platelets (Bld) [#/Vol] 151 10*3/uL 150-[address] [facility] Serum or plasma albumin luciana urement (mass/volume)Ordered By: Vinh Lomeli on 11-01-2022 Albumin [Mass/Vol] 3.0 g/dL 3.2-5.0 [facility] Serum or plasma albumin/glob ulin mass ratioOrdered By: Vinh Lomeli on 11-01-2022 Albumin/Globulin [Mass ratio] 0.9 {ratio} 0.9-2.[address] [facility] Serum or plasma calcium luciana urement (mass/volume)Ordered By: Vinh Lomeli on 11-01-2022 Calcium [Mass/Vol] 8.5 mg/dL 8.5-10.1 [facility] Serum or plasma creatinine m easurement (mass/volume)Ordered By: Vinh Lomeli on 11-01-2022 Creatinine [Mass/Vol] 1.01 mg/dL 0.70-1.30 [facility] Comment on above: The validity of the calculated GFR & GFRAA in patients over 70 years has not been determined. Clinical correlation is essential. Serum or plasma urea nitroge n measurement (mass/volume)Ordered By: Vinh Lomeli on 11-01-2022 Urea nitrogen [Mass/Vol] 5 mg/dL 7-[address] [facility] Thin prep Papanicolaou smear with manual screeningOrdered By: Vinh Lomeli on 11-01-2022 Thin prep Papanicolaou smear with manual screening 434 U/L 15-[address] [facility] Thin prep Papanicolaou smear with manual screening 9 5-[address] [facility] .Auto Diffon 10-15-2022 Basophil, Absolute 0.1 10 3/mcL Normal 0.0-0.2 [facility] ([place]) Comment on above: Performed By: #### L RADHA SARGENT MDW, CBC, GFR, CMP, TROPHS, ANEU #### [address] [address] Basophils/100 WBC (Bld) 0.8 % Normal 0.0-2.5 [facility] ([place]) Comment on above: Performed By: #### L RADHA SARGENT MDW, CBC, GFR, CMP, TROPHS, ANEU #### [address] [address] Eosinophil, Absolute 0.1 10 3/mcL Normal 0.0-0.4 [facility] ([place]) Comment on above: Performed By: #### L RADHA SARGENT MDW, CBC, GFR, CMP, TROPHS, ANEU #### [address] [address] Eosinophils/100 WBC (Bld) 1.7 % Normal 0.0-7.0 [facility] ([place]) Comment on above: Performed By: #### RADHA COSTA MDW, CBC, GFR, CMP, TROPHS, ANEU #### [address] [address] Lymphocyte, Absolute 1.6 10 3/mcL Normal 0.8-3.9 [facility] ([place]) Comment on above: Performed By: #### L RADHA SARGENT MDW, CBC, GFR, CMP, TROPHS, ANEU #### [address] [address] Lymphocytes/100 WBC (Bld) 18.8 % Normal 10.0-50.0 [facility] ([place]) Comment on above: Performed By: #### L RADHA SARGENT MDW, CBC, GFR, CMP, TROPHS, ANEU #### [address] [address] Monocyte, Absolute 0.8 10 3/mcL Normal 0.2-1.0 [facility] ([place]) Comment on above: Performed By: #### L BELLE, RADHA, W, CBC, GFR, CMP, TROPHS, ANEU #### [address] [address] Monocytes/100 WBC (Bld) 9.4 % Normal 1.7-13.0 [facility] ([place]) Comment on above: Performed By: #### L RADHA SARGENT MDW, CBC, GFR, CMP, TROPHS, ANEU #### [address] [address] Neutrophils/100 WBC (Bld) 69.3 % Normal 37.0-80.0 [facility] ([place]) Comment on above: Performed By: #### L RADHA SARGENT MDW, CBC, GFR, CMP, TROPHS, ANEU #### [address] [address] .GFRon 10-15-2022 GFR 79 ml/min/1.73sqm Normal [facility] ([place]) Comment on above: Result Comment: GFR Population [...] W, CBC, GFR, CMP, TROPHS, ANEU #### [address] [address] GFR Non- 66 ml/min/1.73sqm Normal [facility] ([place]) Comment on above: Result Comment: GFR Population [...] MDW, CBC, GFR, CMP, TROPHS, ANEU #### [place] [address] .NEUABSon 10-15-2022 Neutrophil, Absolute 5.9 10 3/mcL Normal 2.9-6.2 [facility] ([place]) Comment on above: Performed By: #### L RADHA SARGENT MDW, CBC, GFR, CMP, TROPHS, ANEU #### [place] [address] A1Con 10-15-2022 HbA1c (Bld) [Mass fraction] 7.9 % High 4.3-6.4 [facility] ([place]) Comment on above: Performed By: #### RADHA COSTA MDW, CBC, GFR, CMP, TROPHS, ANEU #### [place] [address] CBCon 10-15-2022 Erythrocyte distribution width (RBC) [Ratio] 13.4 % Normal 11.5-14.5 [facility] ([place]) Comment on above: Performed By: #### RADHA COSTA MDW, CBC, GFR, CMP, TROPHS, ANEU #### [place] [address] Hematocrit (Bld) [Volume fraction] 42.6 % Normal 42.0-52.0 [facility] ([place]) Comment on above: Performed By: #### L RADHA SARGENT MDW, CBC, GFR, CMP, TROPHS, ANEU #### [place] [address] Hgb 14.0 G/dL Normal 14.0-18.0 [facility] ([place]) Comment on above: Performed By: #### L RADHA SARGENT MDW, CBC, GFR, CMP, TROPHS, ANEU #### [place] [address] MCH (RBC) [Entitic mass] 33.0 pg High 27.0-31.2 [facility] ([place]) Comment on above: Performed By: #### L RADHA SARGENT MDW, CBC, GFR, CMP, TROPHS, ANEU #### [place] [address] MCHC 33.0 G/dL Normal 31.8-35.4 [facility] ([place]) Comment on above: Performed By: #### L RADHA SARGENT MDW, CBC, GFR, CMP, TROPHS, ANEU #### [place] [address] MCV (RBC) [Entitic vol] 100.1 fL High 80.0-94.0 [facility] ([place]) Comment on above: Performed By: #### L RADHA SARGENT MDW, CBC, GFR, CMP, TROPHS, ANEU #### [place] [address] Platelet 184 10 3/mcL Normal 130-400 [facility] ([place]) Comment on above: Performed By: #### L RADHA SARGENT MDW, CBC, GFR, CMP, TROPHS, ANEU #### [place] [address] Platelet mean volume (Bld) [Entitic vol] 10.1 fL Normal 7.4-10.4 [facility] ([place]) Comment on above: Performed By: #### L RADHA SARGENT MDW, CBC, GFR, CMP, TROPHS, ANEU #### [address] [address] RBC 4.26 10 6/mcL Normal 4.04-6.13 [facility] ([place]) Comment on above: Performed By: #### L RADHA SARGENT MDW, CBC, GFR, CMP, TROPHS, ANEU #### [address] [address] WBC 8.5 10 3/mcL Normal 4.6-10.8 [facility] ([place]) Comment on above: Performed By: #### L RADHA SARGENT MDW, CBC, GFR, CMP, TROPHS, ANEU #### [address] [address] CMPon 10-15-2022 Albumin Level 3.7 G/dL Normal 3.4-4.8 [facility] ([place]) Comment on above: Performed By: #### L RADHA SARGENT MDW, CBC, GFR, CMP, TROPHS, ANEU #### [place] [id number] Albumin/Globulin [Mass ratio] 1.0 {ratio} Low 1.1-2.5 [facility] ([place]) Comment on above: Performed By: #### L RADHA SARGENT MDW, CBC, GFR, CMP, TROPHS, ANEU #### [address] [address] ALP [Catalytic activity/Vol] 148 U/L High 40-135 [facility] ([place]) Comment on above: Performed By: #### L RADHA SARGENT MDW, CBC, GFR, CMP, TROPHS, ANEU #### [address] [address] ALT [Catalytic activity/Vol] 49 U/L Normal 16-63 [facility] ([place]) Comment on above: Performed By: #### L RADHA SARGENT MDW, CBC, GFR, CMP, TROPHS, ANEU #### [address] [address] AST [Catalytic activity/Vol] 53 U/L High 10-40 [facility] ([place]) Comment on above: Performed By: #### L RADHA SARGENT MDW, CBC, GFR, CMP, TROPHS, ANEU #### [address] [address] Bili Total 0.4 mg/dL Normal 0.2-1.0 [facility] ([place]) Comment on above: Result Comment: Use of this assay is not recommended for patients undergoing treatment with eltrombopag due to the potential for falsely elevated results. Performed By: #### L RADHA SARGENT MDW, CBC, GFR, CMP, TROPHS, ANEU #### [place] [id number] BUN/Creatinine Ratio 10 ratio Normal 7-27 [facility] ([place]) Comment on above: Performed By: #### L RADHA SARGENT MDW, CBC, GFR, CMP, TROPHS, ANEU #### [address] [address] Calcium [Mass/Vol] 9.3 mg/dL Normal 8.4-10.2 [facility] ([place]) Comment on above: Performed By: #### L RADHA SARGENT MDW, CBC, GFR, CMP, TROPHS, ANEU #### [address] [address] Chloride [Moles/Vol] 104 mmol/L Normal 98-107 [facility] ([place]) Comment on above: Performed By: #### L RADHA SARGENT MDW, CBC, GFR, CMP, TROPHS, ANEU #### [address] [address] CO2 [Moles/Vol] 23 mmol/L Normal 23-31 [facility] ([place]) Comment on above: Performed By: #### L RADHA SARGENT MDW, CBC, GFR, CMP, TROPHS, ANEU #### [address] [address] Creatinine [Mass/Vol] 1.14 mg/dL Normal 0.70-1.30 [facility] ([place]) Comment on above: Performed By: #### L RADHA SARGENT MDW, CBC, GFR, CMP, TROPHS, ANEU #### [address] [address] Electrolyte Balance 11.0 mEq/L Normal 4.0-15.0 [facility] ([place]) Comment on above: Performed By: #### L RADHA SARGENT MDW, CBC, GFR, CMP, TROPHS, ANEU #### [address] [address] Globulin 3.6 G/dL Normal [facility] ([place]) Comment on above: Performed By: #### L RADHA SARGENT MDW, CBC, GFR, CMP, TROPHS, ANEU #### [address] [address] Glucose [Mass/Vol] 205 mg/dL High 80-115 [facility] ([place]) Comment on above: Performed By: #### L RADHA SARGENT MDW, CBC, GFR, CMP, TROPHS, ANEU #### [address] [address] Potassium [Moles/Vol] 5.0 mmol/L Normal 3.5-5.1 [facility] ([place]) Comment on above: Performed By: #### L RADHA SARGENT MDW, CBC, GFR, CMP, TROPHS, ANEU #### [address] [address] Sodium [Moles/Vol] 138 mmol/L Normal 136-145 [facility] ([place]) Comment on above: Performed By: #### L RADHA SARGENT MDW, CBC, GFR, CMP, TROPHS, ANEU #### [address] [address] Total Protein 7.3 G/dL Normal 6.4-8.2 [facility] ([place]) Comment on above: Performed By: #### L RADHA SARGENT MDW, CBC, GFR, CMP, TROPHS, ANEU #### [address] [address] Urea nitrogen [Mass/Vol] 11 mg/dL Normal 7-18 [facility] ([place]) Comment on above: Performed By: #### L RADHA SARGENT MDW, CBC, GFR, CMP, TROPHS, ANEU #### [address] [address] CPEPon 10-15-2022 C-Peptide 1.09 ng/mL Normal 0.81-3.85 [facility] ([place]) Comment on above: Order Comment: +/-28 days Performed By: #### L RADHA SARGENT MDW, CBC, GFR, CMP, TROPHS, ANEU #### [place] [address] LABORATORYOrdered By: Mehran Lee on 10-15-2022 Blood Glucose Frequency Other: Multiple times per day [facility] Work Phone: LIPIDon 10-15-2022 Cholesterol [Mass/Vol] 116 mg/dL Normal 0-200 [facility] ([place]) Comment on above: Result Comment: Chol esterol Reference Interval: Less than 200 Desirable 200-239 Borderline high risk 240 and above High risk Performed By: #### L RADHA SARGENT MDW, CBC, GFR, CMP, TROPHS, ANEU #### [place] [address] Cholesterol in HDL [Mass/Vol] 40 mg/dL Normal 40-60 [facility] ([place]) Comment on above: Performed By: #### L RADHA SARGENT MDW, CBC, GFR, CMP, TROPHS, ANEU #### [place] [address] Cholesterol in LDL [Mass/Vol] 59 mg/dL Normal 0-130 [facility] ([place]) Comment on above: Performed By: #### L RADHA SARGENT MDW, CBC, GFR, CMP, TROPHS, ANEU #### [address] [address] Triglyceride [Mass/Vol] 83 mg/dL Normal 0-150 [facility] ([place]) Comment on above: Result Comment: Trig lyceride Reference Interval: Less than 150 Normal 150-199 Borderline high risk 200-499 High risk 500 or higher Very high risk Performed By: #### L RADHA SARGENT MDW, CBC, GFR, CMP, TROPHS, ANEU #### [address] [address] VIDHon 10-15-2022 Vit. D 25-Hydroxy 37.4 ng/mL Normal [facility] ([place]) Comment on above: Result Comment: Inte rpretive Values Based on Total 25(OH) Vitamin D: Deficient <20 ng/mL Insufficient 20 - <30 ng/mL Sufficient 30-100 ng/mL Performed By: #### L BELLE, RADHA, W, CBC, GFR, CMP, TROPHS, ANEU #### [address] [address] .Auto Diffon 10-05-2022 Basophil, Absolute 0.1 10 3/mcL Normal 0.0-0.2 [facility] [facility] [place] ([place]) Comment on above: Performed By: #### L RADHA SARGENT MDW, CBC, GFR, CMP, TROPHS, ANEU #### [address] [address] Basophils/100 WBC (Bld) 1.2 % Normal 0.0-2.5 [facility] ([place]) Comment on above: Performed By: #### L RADHA SARGENT, W, CBC, GFR, CMP, TROPHS, ANEU #### [address] [address] Eosinophil, Absolute 0.2 10 3/mcL Normal 0.0-0.4 [facility] ([place]) Comment on above: Performed By: #### L RADHA SARGENT, W, CBC, GFR, CMP, TROPHS, ANEU #### [address] [address] Eosinophils/100 WBC (Bld) 2.5 % Normal 0.0-7.0 [facility] ([place]) Comment on above: Performed By: #### L RADHA SARGENT, W, CBC, GFR, CMP, TROPHS, ANEU #### [address] [address] Lymphocyte, Absolute 1.4 10 3/mcL Normal 0.8-3.9 [facility] ([place]) Comment on above: Performed By: #### L BELLE, RADHA, W, CBC, GFR, CMP, TROPHS, ANEU #### [address] [address] Lymphocytes/100 WBC (Bld) 18.6 % Normal 10.0-50.0 [facility] ([place]) Comment on above: Performed By: #### L RADHA SARGENT MDW, CBC, GFR, CMP, TROPHS, ANEU #### [address] [address] Monocyte, Absolute 0.6 10 3/mcL Normal 0.2-1.0 [facility] [place] ([place]) Comment on above: Performed By: #### L RADHA SARGENT MDW, CBC, GFR, CMP, TROPHS, ANEU #### [address] [address] Monocytes/100 WBC (Bld) 7.8 % Normal 1.7-13.0 [facility] ([place]) Comment on above: Performed By: #### L RADHA SARGENT MDW, CBC, GFR, CMP, TROPHS, ANEU #### [address] [address] Neutrophils/100 WBC (Bld) 69.9 % Normal 37.0-80.0 [facility] ([place]) Comment on above: Performed By: #### L RADHA SARGENT MDW, CBC, GFR, CMP, TROPHS, ANEU #### [address] [address] .GFRon 10-05-2022 GFR Non- 69 ml/min/1.73sqm Normal [facility] ([place]) Comment on above: Result Comment: [...] MDW, CBC, GFR, CMP, TROPHS, ANEU #### [address] [address] GFR 84 ml/min/1.73sqm Normal [facility] ([place]) Comment on above: Result Comment: GFR Population [...] MDW, CBC, GFR, CMP, TROPHS, ANEU #### [address] [address] .MDWon 10-05-2022 Monocyte Distribution Width 16.07 Normal 0.00-20.00 [facility] ([place]) Comment on above: Result Comment: For ED adult patients suspected of sepsis, MDW<=20.0 does not rule out sepsis or risk of sepsis Performed By: #### L RADHA SARGENT MDW, CBC, GFR, CMP, TROPHS, ANEU #### [address] [address] .NEUABSon 10-05-2022 Neutrophil, Absolute 5.4 10 3/mcL Normal 2.9-6.2 [facility] ([place]) Comment on above: Performed By: #### L RADHA SARGENT MDW, CBC, GFR, CMP, TROPHS, ANEU #### [address] [address] CBCon 10-05-2022 Erythrocyte distribution width (RBC) [Ratio] 13.6 % Normal 11.5-14.5 [facility] ([place]) Comment on above: Performed By: #### L RADHA SARGENT MDW, CBC, GFR, CMP, TROPHS, ANEU #### [place] [address] Hematocrit (Bld) [Volume fraction] 44.2 % Normal 42.0-52.0 [facility] ([place]) Comment on above: Performed By: #### L BELLE, RADHA, W, CBC, GFR, CMP, TROPHS, ANEU #### [place] [id number] Hgb 14.9 G/dL Normal 14.0-18.0 [facility] ([place]) Comment on above: Performed By: #### L RADHA SARGENT MDW, CBC, GFR, CMP, TROPHS, ANEU #### [place] [address] MCH (RBC) [Entitic mass] 33.5 pg High 27.0-31.2 [facility] ([place]) Comment on above: Performed By: #### L RADHA SARGENT, KEIKO, CBC, GFR, CMP, TROPHS, ANEU #### [place] [address] MCHC 33.6 G/dL Normal 31.8-35.4 [facility] ([place]) Comment on above: Performed By: #### L RADHA SARGENT MDW, CBC, GFR, CMP, TROPHS, ANEU #### [place] [address] MCV (RBC) [Entitic vol] 99.6 fL High 80.0-94.0 [facility] ([place]) Comment on above: Performed By: #### L RADHA SARGENT, KEIKO, CBC, GFR, CMP, TROPHS, ANEU #### [place] [address] Platelet 202 10 3/mcL Normal 130-400 [facility] ([place]) Comment on above: Performed By: #### L BELLE, RADHA, W, CBC, GFR, CMP, TROPHS, ANEU #### [place] [address] Platelet mean volume (Bld) [Entitic vol] 9.2 fL Normal 7.4-10.4 [facility] ([place]) Comment on above: Performed By: #### L RADHA SARGENT MDW, CBC, GFR, CMP, TROPHS, ANEU #### [address] [address] RBC 4.44 10 6/mcL Normal 4.04-6.13 [facility] ([place]) Comment on above: Performed By: #### L RADHA SARGENT MDW, CBC, GFR, CMP, TROPHS, ANEU #### [place] [address] WBC 7.7 10 3/mcL Normal 4.6-10.8 [facility] ([place]) Comment on above: Performed By: #### L RADHA SARGENT MDW, CBC, GFR, CMP, TROPHS, ANEU #### [place] [address] CMPon 10-05-2022 Albumin Level 3.6 G/dL Normal 3.4-4.8 [facility] ([place]) Comment on above: Performed By: #### L RADHA SARGENT MDW, CBC, GFR, CMP, TROPHS, ANEU #### [place] [address] Albumin/Globulin [Mass ratio] 1.0 {ratio} Low 1.1-2.5 [facility] ([place]) Comment on above: Performed By: #### L ARDHA SARGENT MDW, CBC, GFR, CMP, TROPHS, ANEU #### [place] [id number] ALP [Catalytic activity/Vol] 144 U/L High 40-135 [facility] ([place]) Comment on above: Performed By: #### L RADHA SARGENT MDW, CBC, GFR, CMP, TROPHS, ANEU #### [address] [address] ALT [Catalytic activity/Vol] 65 U/L High 16-63 [facility] ([place]) Comment on above: Performed By: #### L RADHA SARGENT MDW, CBC, GFR, CMP, TROPHS, ANEU #### [address] [address] AST [Catalytic activity/Vol] 59 U/L High 10-40 [facility] ([place]) Comment on above: Performed By: #### L RADHA SARGENT MDW, CBC, GFR, CMP, TROPHS, ANEU #### [address] [address] Bili Total 0.3 mg/dL Normal 0.2-1.0 [facility] ([place]) Comment on above: Result Comment: Use of this assay is not recommended for patients undergoing treatment with eltrombopag due to the potential for falsely elevated results. Performed By: #### L RADHA SARGENT MDW, CBC, GFR, CMP, TROPHS, ANEU #### [address] [address] BUN/Creatinine Ratio 7 ratio Normal 7-27 [facility] ([place]) Comment on above: Performed By: #### L RADHA SARGENT MDW, CBC, GFR, CMP, TROPHS, ANEU #### [address] [address] Calcium [Mass/Vol] 9.1 mg/dL Normal 8.4-10.2 [facility] ([place]) Comment on above: Performed By: #### L RADHA SARGENT MDW, CBC, GFR, CMP, TROPHS, ANEU #### [address] [address] Chloride [Moles/Vol] 103 mmol/L Normal 98-107 [facility] ([place]) Comment on above: Performed By: #### L RADHA SARGENT MDW, CBC, GFR, CMP, TROPHS, ANEU #### [address] [address] CO2 [Moles/Vol] 24 mmol/L Normal 23-31 [facility] ([place]) Comment on above: Performed By: #### L RADHA SARGENT MDW, CBC, GFR, CMP, TROPHS, ANEU #### [address] [address] Creatinine [Mass/Vol] 1.09 mg/dL Normal 0.70-1.30 [facility] ([place]) Comment on above: Performed By: #### L RADHA SARGENT MDW, CBC, GFR, CMP, TROPHS, ANEU #### [address] [address] Electrolyte Balance 11.0 mEq/L Normal 4.0-15.0 [facility] ([place]) Comment on above: Performed By: #### L RADHA SARGENT MDW, CBC, GFR, CMP, TROPHS, ANEU #### [address] [address] Globulin 3.6 G/dL Normal [facility] ([place]) Comment on above: Performed By: #### L RADHA SARGENT MDW, CBC, GFR, CMP, TROPHS, ANEU #### [address] [address] Glucose [Mass/Vol] 257 mg/dL High 80-115 [facility] ([place]) Comment on above: Performed By: #### L RADHA SARGENT MDW, CBC, GFR, CMP, TROPHS, ANEU #### [address] [address] Potassium [Moles/Vol] 4.3 mmol/L Normal 3.5-5.1 [facility] ([place]) Comment on above: Performed By: #### L RADHA SARGENT MDW, CBC, GFR, CMP, TROPHS, ANEU #### [address] [address] Sodium [Moles/Vol] 138 mmol/L Normal 136-145 [facility] ([place]) Comment on above: Performed By: #### L RADHA SARGENT MDW, CBC, GFR, CMP, TROPHS, ANEU #### [address] [address] Total Protein 7.2 G/dL Normal 6.4-8.2 [facility] ([place]) Comment on above: Performed By: #### L RADHA SARGENT MDW, CBC, GFR, CMP, TROPHS, ANEU #### [address] [address] Urea nitrogen [Mass/Vol] 8 mg/dL Normal 7-18 [facility] ([place]) Comment on above: Performed By: #### L BELLE, KEIKO GARCIA, CBC, GFR, CMP, TROPHS, ANEU #### [facility] [address] [place] [id number] ANGIO CHEST W+W/O CONTRAS T DISSECTIONon [...] Report By: David Herndon Electronically signed By Davdi Herndon Dictated Date: 10/05/2022 3:30:27 PM Prelim Date: 10/05/2022 3:45:22 PM Sign Date: 10/05/2022 3:45:22 PM [facility]ing [facility] ([place] LABORATORYOrdered By: SYSTEM SYSTEM on 10-05-2022 Albumin [...] LIPon 10-05-2022 Lipase Level <10 Low 16-77 [facility] ([place]) Comment on above: Performed By: #### L RADHA SARGENT MDW, CBC, GFR, CMP, TROPHS, ANEU #### [address] [address] TROPHSon 10-05-2022 Troponin I High Sensitivity 30.7 ng/L Normal 0.0-76.2 [facility] ([place]) Comment on above: Performed By: #### L RADHA SARGENT MDW, CBC, GFR, CMP, TROPHS, ANEU #### [address] [address] XR UPPER GIon 09-22-2022 XR UPPER GI [...] 09/22/2022 3:40:06 PM Ordering Provider: ANDREAS PATHAK [facility] ([place]) LABORATORYOrdered By: Samantha panda on 09-17-2022 Glucose [Mass/Vol] 257 mg/dL High 82 - 115 mg/dL [facility] Work Phone: HbA1c (Bld) [Mass fraction] 8.5 % [facility] Work Phone: Lab Performed By Samantha Huber PharmD [facility] Work Phone: Lab Performing Location [facility] Work Phone: Laboratory - Chemistry and C hemistry - challengeOrdered By: Ti Robbins on 08-15-2022 Glucose [Mass/Vol] 353 mg/dL High 82 - 115 mg/dL [facility] Work Phone: Glucose Glucometer (BldC) [M ass/Vol]Ordered By: Sinan Abarca on 07-21-2022 Glucose [Mass/Vol] 166 mg/dL 74-106 [facility] Comment on above: MANAGEMENT OF PATIEN T CARE PER NURSING PROTOCOL Absolute lymphocyte countOrd ered By: Sinan Abarca on 07-20-2022 Lymphocytes Auto (Unsp spec) [#/Vol] 1.83 10*3/uL 0.83-4.[address] [facility] Basophil percentageOrdered B y: Sinan Abarca on 07-20-2022 Potassium [Moles/Vol] 3.2 mmol/L 3.5-5.1 [facility] Basophil percentage 0 SEEN /hpf 0-5 [facility] Basophils/100 WBC (Bld) 2.1 % 0-1 [facility] Bilirubin [Mass/Vol] 0.20 mg/dL 0.20-1.00 [facility] Comment on above: For patients on eltr ombopag therapy, use of [employer] TBIL is not recommended. Chloride [Moles/Vol] 97 mmol/L 98-107 [facility] Eosinophils/100 WBC (Bld) 4.2 % 0-[address] [facility] Glucose [Mass/Vol] 381 mg/dL 74-106 [facility] Comment on above: Glucose result great er than or equal to 200 mg/dLsuggests DIABETES MELLITUS per A.D.A. criteria. Neutrophils (Bld) [#/Vol] 2.1 10*3/uL 2.0-7.[address] [facility] Neutrophils/100 WBC (Bld) 43.9 % 47-[address] [facility] Protein [Mass/Vol] 6.3 g/dL 6.4-8.2 [facility] Sodium [Moles/Vol] 144 mmol/L 136-145 [facility] WBC (Bld) [#/Vol] 4.7 10*3/uL 4.4-11.0 [facility] Bilirubin Test strip Ql (U)O rdered By: Sinan Abarca on 07-20-2022 Bilirubin Ql (U) Negative Negative [facility] Blood erythrocytes count (nu mber/volume)Ordered By: Sinan Abarca on 07-20-2022 RBC (Bld) [#/Vol] 3.63 10*6/uL 4.6-6.2 [facility] Blood hemoglobin measurement (mass/volume)Ordered By: Sinan Abarca on 07-20-2022 Hemoglobin (Bld) [Mass/Vol] 12.4 g/dL 13.0-16.[address] [facility] Blood lymphocytes/100 leukoc ytesOrdered By: Sinan Abarca on 07-20-2022 Lymphocytes/100 WBC (Bld) 38.6 % 19-[address] [facility] Blood monocytes/100 leukocyt esOrdered By: Sinan Abarca on 07-20-2022 Monocytes/100 WBC (Bld) 10.8 % 0-10 [facility] Blood platelet mean volumeOr dered By: Sinan Abarca on 07-20-2022 Platelet mean volume (Bld) [Entitic vol] 10.0 fL 6.2-12.[address] [facility] Determination of erythrocyte mean corpuscular volume (MCV)Ordered By: Sinan Abarca on 07-20-2022 MCV (RBC) [Entitic vol] 103.9 fL 80-94 [facility] Hematocrit Auto (Bld) [Volum e fraction]Ordered By: Sinan Abarca on 07-20-2022 Hematocrit (Bld) [Volume fraction] 37.7 % 40-[address] [facility] Ketones Test strip Ql (U)Ord ered By: Sinan Abarca on 07-20-2022 Ketones Ql (U) Negative Negative [facility] Laboratory - Chemistry and C hemistry - challengeOrdered By: Sinan Abarca on 07-20-2022 ALP [Catalytic activity/Vol] 120 U/L 45-[address] [facility] ALT [Catalytic activity/Vol] 30 U/L 16-[address] [facility] CO2 [Moles/Vol] 41.0 mmol/L 21.0-32.[address] [facility] Globulin (S) [Mass/Vol] 3.2 g/dL 2.2-4.[address] [facility] Magnesium [Mass/Vol] 2.3 mg/dL 1.6-2.6 [facility] Urea nitrogen/Creatinine [Mass ratio] 7.5 mg/mg 10-[address] [facility] Laboratory - Hematology and Cell countsOrdered By: Sinan Abarca on 07-20-2022 Erythrocyte distribution width (RBC) [Entitic vol] 56.5 fL 35.1-43.[address] [facility] Erythrocyte distribution width (RBC) [Ratio] 14.6 % 11.6-14.[address] [facility] Immature granulocytes/100 WBC (Bld) 0.400 % 0.0-0.[address] [facility] Comment on above: IG% - Immature Granu locytes (promyelocytes, myelocytes and metamyelocytes) > 1% indicates that a LEFT SHIFT is Present. MCH (RBC) [Entitic mass] 34.2 pg 27.0-32.[address] [facility] Nucleated RBC/100 WBC (Bld) [Ratio] 0 % 0-[address] [facility] MCHC Auto (RBC) [Mass/Vol]Or dered By: Sinan Abarca on 07-20-2022 MCHC (RBC) [Mass/Vol] 32.9 g/dL 32-36 [facility] Mucus LM Ql (Urine sed)Order ed By: Sinan Abarca on 07-20-2022 Mucus Ql (Urine sed) 0 SEEN /hpf [facility] Nitrite Test strip Ql (U)Ord ered By: Sinan Abarca on 07-20-2022 Nitrite Ql (U) Negative Negative [facility] No Panel InformationOrdered By: Sinan Abarca on 07-20-2022 Estimated Creatinine Clearance Calc 74.19 ml/min [facility] Estimated GFR (MDRD) Amer 92 mL/min >[address] [facility] Comment on above: GFR Calc Estimated GFR (MDRD) Non-Af Amer 76 mL/min >[address] [facility] Comment on above: Non- GFR Calc Ethyl Alcohol Level 292.0 mg/dL [facility] Comment on above: Critical Result(s) C alled [...] 07-20-2022 Platelets (Bld) [#/Vol] 241 10*3/uL 150-[address] [facility] Protein Test strip Ql (U)Ord ered By: Sinan Abarca on 07-20-2022 Protein Ql (U) Negative Negative [facility] Serum or plasma acetone luciana urement (mass/volume)Ordered By: Sinan Abarca on 07-20-2022 Acetone [Mass/Vol] Negative NEG [facility] Serum or plasma albumin luciana urement (mass/volume)Ordered By: Sinan Abarca on 07-20-2022 Albumin [Mass/Vol] 3.1 g/dL 3.2-5.0 [facility] Serum or plasma albumin/glob ulin mass ratioOrdered By: Sinan Abarca on 07-20-2022 Albumin/Globulin [Mass ratio] 1.0 {ratio} 0.9-2.[address] [facility] Serum or plasma calcium luciana urement (mass/volume)Ordered By: Sinan Abarca on 07-20-2022 Calcium [Mass/Vol] 8.3 mg/dL 8.5-10.1 [facility] Serum or plasma creatinine m easurement (mass/volume)Ordered By: Sinan Abarca on 07-20-2022 Creatinine [Mass/Vol] 1.06 mg/dL 0.70-1.30 [facility] Comment on above: The validity of the calculated GFR & GFRAA in patients over 70 years has not been determined. Clinical correlation is essential. Serum or plasma urea nitroge n measurement (mass/volume)Ordered By: Sinan Abarca on 07-20-2022 Urea nitrogen [Mass/Vol] 8 mg/dL 7-[address] [facility] Squamous epithelial cells de tection in urine sediment by light microscopyOrdered By: Sinan Abarca on 07-20-2022 Epithelial cells.squamous LM Ql (Urine sed) 0 SEEN /hpf 0-[address] [facility] Thin prep Papanicolaou smear with manual screeningOrdered By: Sinan Abarca on 07-20-2022 Thin prep Papanicolaou smear with manual screening 50 U/L 15-[address] [facility] Thin prep Papanicolaou smear with manual screening 6 5-[address] [facility] Urine blood detectionOrdered By: Sinan Abarca on 07-20-2022 RBC Ql (U) Negative Negative [facility] RBC Ql (U) 0 SEEN /hpf 0-[address] [facility] Urine clarityOrdered By: Ramon Abarca on 07-20-2022 Clarity (U) Clear Clear [facility] Urine color determinationOrd ered By: Sinan Abarca on 07-20-2022 Color (U) Straw Yellow [facility] Urine glucose detectionOrder ed By: Sinan Abarca on 07-20-2022 Glucose Ql (U) 1000 mg/dl Normal [facility] Urine leukocyte esterase det ection by dipstickOrdered By: Sinan Abarca on 07-20-2022 Leukocyte esterase Test strip Ql (U) Negative Negative [facility] Urine pHOrdered By: Sinan gonzalez on 07-20-2022 pH (U) 8.0 [pH] 5.0 - 8.[address] [facility] Urine sediment bacteria coun t by microscopy (number/high power field)Ordered By: Sinan Abarca on 07-20-2022 Bacteria LM.HPF (Urine sed) [#/Area] 0 /[HPF] None Seen [facility] Urine specific gravity measu rementOrdered By: Sinan Abarca on 07-20-2022 Specific gravity (U) [Rel density] 1.010 1.002-1.[address] [facility] Urobilinogen Auto test strip Ql (U)Ordered By: Sinan Abarca on 07-20-2022 Urobilinogen Ql (U) Normal mg/dl Normal [facility] LABORATORYOrdered By: Cyndi Moya on 07-02-2022 Albumin [...] 07-02-2022 U Creatinine 23.2 mg/dL Low 39.0-259.0 [facility] ([place]) Comment on above: Performed By: #### M ALBR #### [address] [place] [address] U Microalb 6479 mcg/dL Normal [facility] ([place]) Comment on above: Performed By: #### M ALBR #### [place] [address] [address] U Ratio Alb/Cre 279 mcg/mg High 0-30 [facility] ([place]) Comment on above: Performed By: #### M ALBR #### [place] [address] [address] RENINDon 06-22-2022 Direct Renin 9.5 pg/mL Normal 3.6-81.6 [facility] ([place]) Comment on above: Result Comment: A ra [...] Age >=41 years: 2.5-45.1 pg/mL Performed By: [facility] [address] [place] [address] Window Treatment Installer: Jaya Jones III, M.D. CLIA#: [id number] Performed By: #### L RADHA SARGENT MDW, CBC, GFR, CMP, TROPHS, ANEU #### [place] [address] Patient Upright or Supine Upright Normal [facility] ([place]) Comment on above: Result Comment: Perf ormed By: [facility] [address] [place] [id number] Window Treatment Installer: Jaya Jones III, M.D. CLIA#: [id number] Performed By: #### L RADHA SARGENT MDW, CBC, GFR, CMP, TROPHS, ANEU #### [address] [address] PTHon 06-20-2022 PTH, Intact 135.8 pg/mL High 18.5-88.0 [facility] ([place]) Comment on above: Performed By: #### L BELLE, ALVAIFF, MDW, CBC, GFR, CMP, TROPHS, ANEU #### [address] [address] .Auto Diffon 06-19-2022 Basophil, Absolute 0.0 10 3/mcL Normal 0.0-0.2 [facility] ([place]) Comment on above: Performed By: #### L AC, ADIFF, MDW, CBC, GFR, CMP, TROPHS, ANEU #### [address] [address] Basophils/100 WBC (Bld) 0.3 % Normal 0.0-2.5 [facility] ([place]) Comment on above: Performed By: #### L AC, ADIFF, MDW, CBC, GFR, CMP, TROPHS, ANEU #### [address] [address] Eosinophil, Absolute 0.1 10 3/mcL Normal 0.0-0.4 [facility] ([place]) Comment on above: Performed By: #### L AC, ADIFF, MDW, CBC, GFR, CMP, TROPHS, ANEU #### [address] [address] Eosinophils/100 WBC (Bld) 0.8 % Normal 0.0-7.0 [facility] ([place]) Comment on above: Performed By: #### L AC, ADIFF, MDW, CBC, GFR, CMP, TROPHS, ANEU #### [address] [address] Lymphocyte, Absolute 1.2 10 3/mcL Normal 0.8-3.9 [facility] ([place]) Comment on above: Performed By: #### L AC, ADIFF, MDW, CBC, GFR, CMP, TROPHS, ANEU #### [address] [address] Lymphocytes/100 WBC (Bld) 17.6 % Normal 10.0-50.0 [facility] ([place]) Comment on above: Performed By: #### L AC, ADIFF, MDW, CBC, GFR, CMP, TROPHS, ANEU #### [address] [address] Monocyte, Absolute 0.7 10 3/mcL Normal 0.2-1.0 [facility] ([place]) Comment on above: Performed By: #### L RADHA SARGENT MDW, CBC, GFR, CMP, TROPHS, ANEU #### [address] [address] Monocytes/100 WBC (Bld) 10.1 % Normal 1.7-13.0 [facility] ([place]) Comment on above: Performed By: #### L RADHA SARGENT MDW, CBC, GFR, CMP, TROPHS, ANEU #### [address] [address] Neutrophils/100 WBC (Bld) 71.2 % Normal 37.0-80.0 [facility] ([place]) Comment on above: Performed By: #### L RADHA SARGENT MDW, CBC, GFR, CMP, TROPHS, ANEU #### [address] [address] .GFRon 06-19-2022 GFR 107 ml/min/1.73sqm Normal [facility] ([place]) Comment on above: Result Comment: GFR Population [...] MDW, CBC, GFR, CMP, TROPHS, ANEU #### [address] [address] GFR Non- 89 ml/min/1.73sqm Normal [facility] ([place]) Comment on above: Result Comment: GFR Population [...] MDW, CBC, GFR, CMP, TROPHS, ANEU #### [place] [address] .NEUABSon 06-19-2022 Neutrophil, Absolute 5.0 10 3/mcL Normal 2.9-6.2 [facility] ([place]) Comment on above: Performed By: #### L RADHA SARGENT MDW, CBC, GFR, CMP, TROPHS, ANEU #### [address] [address] A1Con 06-19-2022 HbA1c (Bld) [Mass fraction] 9.6 % High 4.3-6.4 [facility] ([place]) Comment on above: Performed By: #### L RADHA SARGENT MDW, CBC, GFR, CMP, TROPHS, ANEU #### [place] [id number] CBCon 06-19-2022 Erythrocyte distribution width (RBC) [Ratio] 15.2 % High 11.5-14.5 [facility] ([place]) Comment on above: Performed By: #### RADHA COSTA MDW, CBC, GFR, CMP, TROPHS, ANEU #### [address] [address] Hematocrit (Bld) [Volume fraction] 40.7 % Low 42.0-52.0 [facility] ([place]) Comment on above: Performed By: #### L RADHA SARGENT MDW, CBC, GFR, CMP, TROPHS, ANEU #### [place] [address] Hgb 13.7 G/dL Low 14.0-18.0 [facility] ([place]) Comment on above: Performed By: #### L RADHA SARGENT MDW, CBC, GFR, CMP, TROPHS, ANEU #### [place] [address] MCH (RBC) [Entitic mass] 34.1 pg High 27.0-31.2 [facility] ([place]) Comment on above: Performed By: #### L RADHA SARGENT MDW, CBC, GFR, CMP, TROPHS, ANEU #### [place] [address] MCHC 33.7 G/dL Normal 31.8-35.4 [facility] ([place]) Comment on above: Performed By: #### L RADHA SARGENT MDW, CBC, GFR, CMP, TROPHS, ANEU #### [place] [address] MCV (RBC) [Entitic vol] 101.1 fL High 80.0-94.0 [facility] ([place]) Comment on above: Performed By: #### L RADHA SARGENT MDW, CBC, GFR, CMP, TROPHS, ANEU #### [place] [address] Platelet 279 10 3/mcL Normal 130-400 [facility] ([place]) Comment on above: Performed By: #### L RADHA SARGENT MDW, CBC, GFR, CMP, TROPHS, ANEU #### [place] [address] Platelet mean volume (Bld) [Entitic vol] 9.2 fL Normal 7.4-10.4 [facility] ([place]) Comment on above: Performed By: #### L RADHA SARGENT MDW, CBC, GFR, CMP, TROPHS, ANEU #### [place] [address] RBC 4.03 10 6/mcL Low 4.04-6.13 [facility] ([place]) Comment on above: Performed By: #### L RADHA SARGENT MDW, CBC, GFR, CMP, TROPHS, ANEU #### [address] [address] WBC 7.1 10 3/mcL Normal 4.6-10.8 [facility] ([place]) Comment on above: Performed By: #### L RADHA SARGENT MDW, CBC, GFR, CMP, TROPHS, ANEU #### [address] [address] CMPon 06-19-2022 Albumin Level 3.5 G/dL Normal 3.5-5.0 [facility] ([place]) Comment on above: Performed By: #### L RADHA SARGENT MDW, CBC, GFR, CMP, TROPHS, ANEU #### [address] [address] Albumin/Globulin [Mass ratio] 1.0 {ratio} Low 1.1-2.5 [facility] ([place]) Comment on above: Performed By: #### L RADHA SARGENT MDW, CBC, GFR, CMP, TROPHS, ANEU #### [address] [address] ALP [Catalytic activity/Vol] 174 U/L High 40-135 [facility] ([place]) Comment on above: Performed By: #### L RADHA SARGENT MDW, CBC, GFR, CMP, TROPHS, ANEU #### [address] [address] ALT [Catalytic activity/Vol] 44 U/L Normal 16-63 [facility] ([place]) Comment on above: Performed By: #### L RADHA SARGENT MDW, CBC, GFR, CMP, TROPHS, ANEU #### [address] [address] AST [Catalytic activity/Vol] 54 U/L High 10-40 [facility] ([place]) Comment on above: Performed By: #### L RADHA SARGENT, W, CBC, GFR, CMP, TROPHS, ANEU #### [address] [address] Bili Total 0.4 mg/dL Normal 0.2-1.0 [facility] ([place]) Comment on above: Result Comment: Use of this assay is not recommended for patients undergoing treatment with eltrombopag due to the potential for falsely elevated results. Performed By: #### L RADHA SARGENT MDW, CBC, GFR, CMP, TROPHS, ANEU #### [place] [id number] BUN/Creatinine Ratio 6 ratio Low 7-27 [facility] ([place]) Comment on above: Performed By: #### L RADHA SARGENT MDW, CBC, GFR, CMP, TROPHS, ANEU #### [place] [id number] Calcium [Mass/Vol] 9.3 mg/dL Normal 8.4-10.2 [facility] ([place]) Comment on above: Performed By: #### L RADHA SARGENT MDW, CBC, GFR, CMP, TROPHS, ANEU #### [place] [id number] Chloride [Moles/Vol] 98 mmol/L Normal 98-107 [facility] ([place]) Comment on above: Performed By: #### L RADHA SARGENT MDW, CBC, GFR, CMP, TROPHS, ANEU #### [place] [id number] CO2 [Moles/Vol] 30 mmol/L High 22-29 [facility] ([place]) Comment on above: Performed By: #### L RADHA SARGENT MDW, CBC, GFR, CMP, TROPHS, ANEU #### [address] [address] Creatinine [Mass/Vol] 0.88 mg/dL Normal 0.70-1.30 [facility] ([place]) Comment on above: Performed By: #### L RADHA SARGENT MDW, CBC, GFR, CMP, TROPHS, ANEU #### [address] [address] Electrolyte Balance 3.0 mEq/L Low 4.0-15.0 [facility] ([place]) Comment on above: Performed By: #### L RADHA SARGENT MDW, CBC, GFR, CMP, TROPHS, ANEU #### [address] [address] Globulin 3.5 G/dL Normal [facility] ([place]) Comment on above: Performed By: #### L RADHA SARGENT MDW, CBC, GFR, CMP, TROPHS, ANEU #### [address] [address] Glucose [Mass/Vol] 217 mg/dL High 70-105 [facility] ([place]) Comment on above: Performed By: #### L RADHA SARGENT MDW, CBC, GFR, CMP, TROPHS, ANEU #### [place] [id number] Potassium [Moles/Vol] 4.5 mmol/L Normal 3.5-5.1 [facility] ([place]) Comment on above: Performed By: #### L RADHA SARGENT MDW, CBC, GFR, CMP, TROPHS, ANEU #### [place] [address] Sodium [Moles/Vol] 131 mmol/L Low 136-145 [facility] ([place]) Comment on above: Performed By: #### L RADHA SARGENT MDW, CBC, GFR, CMP, TROPHS, ANEU #### [address] [address] Total Protein 7.0 G/dL Normal 6.4-8.2 [facility] ([place]) Comment on above: Performed By: #### L RADHA SARGENT MDW, CBC, GFR, CMP, TROPHS, ANEU #### [address] [address] Urea nitrogen [Mass/Vol] 5 mg/dL Low 7-18 [facility] ([place]) Comment on above: Performed By: #### L RADHA SARGENT MDW, CBC, GFR, CMP, TROPHS, ANEU #### [address] [address] LABORATORYOrdered By: SYSTEM SYSTEM on 06-19-2022 25-hydroxyvitamin [...] Cholesterol [Mass/Vol] 172 mg/dL Normal 0-200 [facility] ([place]) Comment on above: Result Comment: Chol esterol Reference Interval: Less than 200 Desirable 200-239 Borderline high risk 240 and above High risk Performed By: #### L RADHA SARGENT MDW, CBC, GFR, CMP, TROPHS, ANEU #### [address] [address] Cholesterol in HDL [Mass/Vol] 47 mg/dL Normal 40-60 [facility] ([place]) Comment on above: Performed By: #### L RADHA SARGENT MDW, CBC, GFR, CMP, TROPHS, ANEU #### [address] [address] Cholesterol in LDL [Mass/Vol] 92 mg/dL Normal 0-130 [facility] ([place]) Comment on above: Performed By: #### L RADHA SARGENT MDW, CBC, GFR, CMP, TROPHS, ANEU #### [place] [address] Triglyceride [Mass/Vol] 164 mg/dL High 0-150 [facility] ([place]) Comment on above: Result Comment: Trig lyceride Reference Interval: Less than 150 Normal 150-199 Borderline high risk 200-499 High risk 500 or higher Very high risk Performed By: #### L RADHA SARGENT MDW, CBC, GFR, CMP, TROPHS, ANEU #### [place] [address] PSAon 06-19-2022 Prostate Specific Antigen 0.38 ng/mL Normal 0.00-4.00 [facility] ([place]) Comment on above: Performed By: #### L RADHA SARGENT MDW, CBC, GFR, CMP, TROPHS, ANEU #### [place] [address] VIDHon 06-19-2022 Vit. D 25-Hydroxy <5.0 Normal [facility] ([place]) Comment on above: Result Comment: Inte rpretive Values Based on Total 25(OH) Vitamin D: Deficient <20 ng/mL Insufficient 20 - <30 ng/mL Sufficient 30-100 ng/mL Performed By: #### L RADHA SARGENT MDW, CBC, GFR, CMP, TROPHS, ANEU #### [place] [address] CT HEAD OR BRAIN W/O CONTRAS Ton [...] Sign Date: 05/13/2022 7:45:15 PM Ordering Provider: [facility]) CT SPINE CERVICAL W/O CONTRA STon [...] by: Jamari Love MD Preliminary Report By: Jmaari Love MD Electronically signed By Jamari Love MD Dictated Date: 05/13/2022 7:45:45 PM Prelim Date: 05/13/2022 7:46:30 PM Sign Date: 05/13/2022 7:46:30 PM [facility]R SPINE LUMBOSACRAL MINIMUM 4 [...] 05/13/2022 8:46:22 PM Ordering Provider: MERRICK White [facility] ([place]) Glucose Glucometer (BldC) [M ass/Vol]Ordered By: Dr. Dutton on 03-24-2022 Glucose [Mass/Vol] 223 mg/dL 74-106 [facility] Comment on above: MANAGEMENT OF PATIEN T CARE PER NURSING PROTOCOL Basophil percentageOrdered B y: Dr. Dutton on 03-23-2022 Chloride [Moles/Vol] 107 mmol/L 98-107 [facility] Glucose [Mass/Vol] 149 mg/dL 74-106 [facility] Comment on above: Fasting Glucose resu lt greater than or equal to 126 mg/dL suggests DIABETES MELLITUS per A.D.A. criteria. Potassium [Moles/Vol] 4.9 mmol/L 3.5-5.1 [facility] Sodium [Moles/Vol] 140 mmol/L 136-145 [facility] Laboratory - Chemistry and C hemistry - challengeOrdered By: Dr. Dutton on 03-23-2022 CO2 [Moles/Vol] 30.0 mmol/L 21.0-32.[address] [facility] Magnesium [Mass/Vol] 1.8 mg/dL 1.6-2.6 [facility] Urea nitrogen/Creatinine [Mass ratio] 8.1 mg/mg 10-[address] [facility] No Panel InformationOrdered By: Dr. Dutton on 03-23-2022 Estimated Creatinine Clearance Calc 80.56 ml/min [facility] Estimated GFR (MDRD) Amer 116 mL/min >[address] [facility] Comment on above: GFR Calc Estimated GFR (MDRD) Non-Af Amer 96 mL/min >[address] [facility] Comment on above: Non- GFR Calc Serum or plasma calcium luciana urement (mass/volume)Ordered By: Dr. Dutton on 03-23-2022 Calcium [Mass/Vol] 7.7 mg/dL 8.5-10.1 [facility] Serum or plasma creatinine m easurement (mass/volume)Ordered By: Dr. Dutton on 03-23-2022 Creatinine [Mass/Vol] 0.87 mg/dL 0.70-1.30 [facility] Comment on above: The validity of the calculated GFR & GFRAA in patients over 70 years has not been determined. Clinical correlation is essential. Serum or plasma urea nitroge n measurement (mass/volume)Ordered By: Dr. Dutton on 03-23-2022 Urea nitrogen [Mass/Vol] 7 mg/dL 7-[address] [facility] Thin prep Papanicolaou smear with manual screeningOrdered By: Dr. Dutton on 03-23-2022 Thin prep Papanicolaou smear with manual screening 3 5-[address] [facility] Basophil percentageOrdered B y: Dr. Aguayo on 03-22-2022 Bilirubin [Mass/Vol] 1.10 mg/dL 0.20-1.00 [facility] Comment on above: For patients on eltr ombopag therapy, use of [employer] TBIL is not recommended. Protein [Mass/Vol] 4.4 g/dL 6.4-8.2 [facility] Laboratory - Chemistry and C hemistry - challengeOrdered By: Dr. Aguayo on 03-22-2022 ALP [Catalytic activity/Vol] 104 U/L 45-[address] [facility] ALT [Catalytic activity/Vol] 76 U/L 16-[address] [facility] Globulin (S) [Mass/Vol] 2.4 g/dL 2.2-4.[address] [facility] Serum or plasma albumin luciana urement (mass/volume)Ordered By: Dr. Aguayo on 03-22-2022 Albumin [Mass/Vol] 2.0 g/dL 3.2-5.0 [facility] Serum or plasma albumin/glob ulin mass ratioOrdered By: Dr. Aguayo on 03-22-2022 Albumin/Globulin [Mass ratio] 0.8 {ratio} 0.9-2.[address] [facility] Thin prep Papanicolaou smear with manual screeningOrdered By: Dr. Aguayo on 03-22-2022 Thin prep Papanicolaou smear with manual screening 254 U/L 15-[address] [facility] Whole blood hemoglobin A1c/t otal hemoglobin ratio (mass fraction)Ordered By: Dr. Aguayo on 03-22-2022 HbA1c (Bld) [Mass fraction] 8.3 % 3.8-5.[address] [facility] Comment on above: Normal < 5.7 % Predi abetic 5.7 - 6.4 % Diabetic >or= 6.5 % Please note range changes. Absolute lymphocyte countOrd ered By: Dr. Lomeli on 03-21-2022 Lymphocytes Auto (Unsp spec) [#/Vol] 0.60 10*3/uL 0.83-4.[address] [facility] Basophil percentageOrdered B y: Dr. Aguayo on 03-21-2022 Basophil percentage 3.6 mg/dL 2.5-4.9 [facility] Bilirubin [Mass/Vol] 1.40 mg/dL 0.20-1.00 [facility] Comment on above: For patients on eltr ombopag therapy, use of [employer] TBIL is not recommended. Protein [Mass/Vol] 5.8 g/dL 6.4-8.2 [facility] Basophil percentageOrdered B y: Dr. Lomeli on 03-21-2022 Basophils/100 WBC (Bld) 0.8 % 0-[address] [facility] Chloride [Moles/Vol] 98 mmol/L 98-107 [facility] Eosinophils/100 WBC (Bld) 5.6 % 0-[address] [facility] Glucose [Mass/Vol] 294 mg/dL 74-106 [facility] Comment on above: Glucose result great er than or equal to 200 mg/dLsuggests DIABETES MELLITUS per A.D.A. criteria. Neutrophils (Bld) [#/Vol] 4.5 10*3/uL 2.0-7.[address] [facility] Neutrophils/100 WBC (Bld) 75.0 % 47-[address] [facility] Potassium [Moles/Vol] 3.2 mmol/L 3.5-5.1 [facility] Sodium [Moles/Vol] 142 mmol/L 136-145 [facility] WBC (Bld) [#/Vol] 6.0 10*3/uL 4.4-11.0 [facility] Blood erythrocytes count (nu mber/volume)Ordered By: Dr. Lomeli on 03-21-2022 RBC (Bld) [#/Vol] 3.88 10*6/uL 4.6-6.2 [facility] Blood hemoglobin measurement (mass/volume)Ordered By: Dr. Lomeli on 03-21-2022 Hemoglobin (Bld) [Mass/Vol] 13.2 g/dL 13.0-16.[address] [facility] Blood lymphocytes/100 leukoc ytesOrdered By: Dr. Lomeli on 03-21-2022 Lymphocytes/100 WBC (Bld) 10.0 % 19-[address] [facility] Blood manual differential co mment interpretation (narrative result)Ordered By: Dr. Lomeli on 03-21-2022 Manual differential comment Jose Carlos (Bld) [Interp] SCANNED [facility] Comment on above: LYMPHOPENIA NOTED Blood monocytes/100 leukocyt esOrdered By: Dr. Lomeli on 03-21-2022 Monocytes/100 WBC (Bld) 8.1 % 0-10 [facility] Blood platelet mean volumeOr dered By: Dr. Lomeli on 03-21-2022 Platelet mean volume (Bld) [Entitic vol] 11.1 fL 6.2-12.[address] [facility] Determination of erythrocyte mean corpuscular volume (MCV)Ordered By: Dr. Lomeli on 03-21-2022 MCV (RBC) [Entitic vol] 98.7 fL 80-94 [facility] Direct bilirubinOrdered By: Dr. Aguayo on 03-21-2022 Bilirubin.direct [Mass/Vol] 0.55 mg/dL 0.00-0.[address] [facility] Glucose Glucometer (BldC) [M ass/Vol]Ordered By: Dr. Alvarado on 03-21-2022 Glucose [Mass/Vol] 337 mg/dL 74-106 [facility] Comment on above: MANAGEMENT OF PATIEN T CARE PER NURSING PROTOCOL Hematocrit Auto (Bld) [Volum e fraction]Ordered By: Dr. Lomeli on 03-21-2022 Hematocrit (Bld) [Volume fraction] 38.3 % 40-[address] [facility] Laboratory - Chemistry and C hemistry - challengeOrdered By: Dr. Aguayo on 03-21-2022 ALP [Catalytic activity/Vol] 144 U/L 45-[address] [facility] ALT [Catalytic activity/Vol] 108 U/L 16-[address] [facility] Globulin (S) [Mass/Vol] 3.0 g/dL 2.2-4.[address] [facility] Magnesium [Mass/Vol] 1.2 mg/dL 1.6-2.6 [facility] Laboratory - Chemistry and C hemistry - challengeOrdered By: Dr. Lomeli on 03-21-2022 CO2 [Moles/Vol] 32.0 mmol/L 21.0-32.[address] [facility] Urea nitrogen/Creatinine [Mass ratio] 3.6 mg/mg 10-[address] [facility] Laboratory - Drug toxicology Ordered By: Dr. Lomeli on 03-21-2022 Amphetamines Ql (U) Negative <1000 ng/mL [facility] Benzodiazepines Ql (U) Negative < 200 ng/mL [facility] Cannabinoids Screen Ql (U) Negative < 50 ng/mL [facility] Cocaine Ql (U) Negative < 300 ng/mL [facility] Opiates Ql (U) Negative < 300 ng/mL [facility] Laboratory - Hematology and Cell countsOrdered By: Dr. Lomeli on 03-21-2022 Erythrocyte distribution width (RBC) [Entitic vol] 49.6 fL 35.1-43.[address] [facility] Erythrocyte distribution width (RBC) [Ratio] 13.6 % 11.6-14.[address] [facility] Immature granulocytes/100 WBC (Bld) 0.500 % 0.0-0.[address] [facility] Comment on above: IG% - Immature Granu locytes (promyelocytes, myelocytes and metamyelocytes) > 1% indicates that a LEFT SHIFT is Present. MCH (RBC) [Entitic mass] 34.0 pg 27.0-32.[address] [facility] Nucleated RBC/100 WBC (Bld) [Ratio] 0 % 0-[address] [facility] MCHC Auto (RBC) [Mass/Vol]Or dered By: Dr. Lomeli on 03-21-2022 MCHC (RBC) [Mass/Vol] 34.5 g/dL 32-36 [facility] No Panel InformationOrdered By: Dr. Lomeli on 03-21-2022 MDMA (Ecstasy) Screen Negative < 500 ng/mL [facility] Urine Barbiturates Screen Negative < 200 ng/mL [facility] Urine Drug Screen Comment [facility] Comment on above: CONFIRMATORY TESTING FOR ALL [...] Methadone Screen Negative < 300 ng/mL [facility] Estimated Creatinine Clearance Calc 68.96 ml/min [facility] Estimated GFR (MDRD) Amer 87 mL/min >[address] [facility] Comment on above: GFR Calc Estimated GFR (MDRD) Non-Af Amer 72 mL/min >[address] [facility] Comment on above: Non- GFR Calc Ethyl Alcohol Level < 3.0 mg/dL [facility] Comment on above: The serum:whole bloo d ethanol ratio is approximately 1.14and varies slightly with hematocrit. Medical Alcohol reference interval and critical value innon-tolerant individuals; 50 - 100 Impairment 100 Intoxication 100 - 250 Severe Poisoning 250 - 400 Deep/possible fatal coma Platelets bldOrdered By: Dr. Lomeli on 03-21-2022 Platelets (Bld) [#/Vol] 144 10*3/uL 150-[address] [facility] Serum or plasma albumin luciana urement (mass/volume)Ordered By: Dr. Aguayo on 03-21-2022 Albumin [Mass/Vol] 2.8 g/dL 3.2-5.0 [facility] Serum or plasma calcium luciana urement (mass/volume)Ordered By: Dr. Lomeli on 03-21-2022 Calcium [Mass/Vol] 8.3 mg/dL 8.5-10.1 [facility] Serum or plasma creatinine m easurement (mass/volume)Ordered By: Dr. Lomeli on 03-21-2022 Creatinine [Mass/Vol] 1.11 mg/dL 0.70-1.30 [facility] Comment on above: The validity of the calculated GFR & GFRAA in patients over 70 years has not been determined. Clinical correlation is essential. Serum or plasma urea nitroge n measurement (mass/volume)Ordered By: Dr. Lomeli on 03-21-2022 Urea nitrogen [Mass/Vol] 4 mg/dL 7-[address] [facility] Thin prep Papanicolaou smear with manual screeningOrdered By: Dr. Aguayo on 03-21-2022 Thin prep Papanicolaou smear with manual screening 334 U/L 15- [facility] Thin prep Papanicolaou smear with manual screeningOrdered By: Dr. Lomeli on 03-21-2022 Thin prep Papanicolaou smear with manual screening 12 - [facility] Urine phencyclidine (PCP) de tectionOrdered By: Dr. Lomeli on 03-21-2022 Phencyclidine Ql (U) Negative < 25 ng/mL [facility] Basophil percentageOrdered B y: Dr. Dutton on 02-04-2022 Glucose [Mass/Vol] 516 mg/dL 74-106 [facility] Comment on above: Critical Result(s) C alled at: 11:23:39 02/04/2022 by: Estefany Rosenberg. Results read back by same.Glucose result greater than or equal to 200 mg/dLsuggests DIABETES MELLITUS per A.D.A. criteria. Glucose Glucometer (BldC) [M ass/Vol]Ordered By: Dr. Dutton on 02-04-2022 Glucose [Mass/Vol] 494 mg/dL 74-106 [facility] Comment on above: Repeat TestMANAGEMEN T OF PATIENT CARE PER NURSING PROTOCOL Absolute lymphocyte countOrd ered By: Dr. Lomeli on 02-01-2022 Lymphocytes Auto (Unsp spec) [#/Vol] 1.73 10*3/uL 0.83-4.[address] [facility] Basophil percentageOrdered B y: Dr. Aguayo on 02-01-2022 Basophil percentage 2.6 mg/dL 2.5-4.9 [facility] Bilirubin [Mass/Vol] 0.30 mg/dL 0.20-1.00 [facility] Comment on above: For patients on eltr ombopag therapy, use of [employer] TBIL is not recommended. Protein [Mass/Vol] 6.2 g/dL 6.4-8.2 [facility] Basophil percentageOrdered B y: Dr. Lomeli on 02-01-2022 Chloride [Moles/Vol] 107 mmol/L 98-107 [facility] Potassium [Moles/Vol] 3.1 mmol/L 3.5-5.1 [facility] Sodium [Moles/Vol] 144 mmol/L 136-145 [facility] Basophils/100 WBC (Bld) 1.6 % 0-1 [facility] Eosinophils/100 WBC (Bld) 0.4 % 0-[address] [facility] Neutrophils (Bld) [#/Vol] 2.9 10*3/uL 2.0-7.[address] [facility] Neutrophils/100 WBC (Bld) 55.5 % 47-[address] [facility] WBC (Bld) [#/Vol] 5.2 10*3/uL 4.4-11.0 [facility] Basophil percentageon 2021 Glucose [Mass/Vol] 256 mg/dL 74-106 [facility] Work Phone: Comment on above: Glucose result great er than or equal to 200 mg/dLsuggests DIABETES MELLITUS per A.D.A. criteria. Blood erythrocytes count (nu mber/volume)Ordered By: Dr. Lomeli on 02-01-2022 RBC (Bld) [#/Vol] 3.96 10*6/uL 4.6-6.2 [facility] Blood hemoglobin measurement (mass/volume)Ordered By: Dr. Lomeli on 02-01-2022 Hemoglobin (Bld) [Mass/Vol] 14.2 g/dL 13.0-16.[address] [facility] Blood lymphocytes/100 leukoc ytesOrdered By: Dr. Lomeli on 02-01-2022 Lymphocytes/100 WBC (Bld) 33.6 % 19-[address] [facility] Blood monocytes/100 leukocyt esOrdered By: Dr. Lomeli on 02-01-2022 Monocytes/100 WBC (Bld) 8.5 % 0-10 [facility] Blood platelet mean volumeOr dered By: Dr. Lomeli on 02-01-2022 Platelet mean volume (Bld) [Entitic vol] 11.6 fL 6.2-12.[address] [facility] Determination of erythrocyte mean corpuscular volume (MCV)Ordered By: Dr. Lomeli on 02-01-2022 MCV (RBC) [Entitic vol] 106.3 fL 80-94 [facility] Direct bilirubinOrdered By: Dr. Aguayo on 02-01-2022 Bilirubin.direct [Mass/Vol] 0.20 mg/dL 0.00-0.[address] [facility] Hematocrit Auto (Bld) [Volum e fraction]Ordered By: Dr. Lomeli on 02-01-2022 Hematocrit (Bld) [Volume fraction] 42.1 % 40-[address] [facility] Laboratory - Chemistry and C hemistry - challengeOrdered By: Dr. Aguayo on 02-01-2022 ALP [Catalytic activity/Vol] 164 U/L 45-[address] [facility] ALT [Catalytic activity/Vol] 109 U/L 16-[address] [facility] Globulin (S) [Mass/Vol] 3.2 g/dL 2.2-4.2 [facility] Magnesium [Mass/Vol] 2.0 mg/dL 1.6-2.6 [facility] Laboratory - Chemistry and C hemistry - challengeOrdered By: Dr. Lomeli on 02-01-2022 CO2 [Moles/Vol] 29.0 mmol/L 21.0-32.[address] [facility] Lipase [Catalytic activity/Vol] 21 U/L 73-[address] [facility] Urea nitrogen/Creatinine [Mass ratio] 4.6 mg/mg 10-[address] [facility] Laboratory - Hematology and Cell countsOrdered By: Dr. Lomeli on 02-01-2022 Erythrocyte distribution width (RBC) [Entitic vol] 52.8 fL 35.1-43.[address] [facility] Erythrocyte distribution width (RBC) [Ratio] 13.3 % 11.6-14.[address] [facility] Immature granulocytes/100 WBC (Bld) 0.400 % 0.0-0.[address] [facility] Comment on above: IG% - Immature Granu locytes (promyelocytes, myelocytes and metamyelocytes) > 1% indicates that a LEFT SHIFT is Present. MCH (RBC) [Entitic mass] 35.9 pg 27.0-32.[address] [facility] Nucleated RBC/100 WBC (Bld) [Ratio] 0 % 0-5 [facility] Auto (RBC) [Mass/Vol]Or dered By: Dr. Lomeli on 02-01-2022 MCHC (RBC) [Mass/Vol] 33.7 g/dL 32-36 [facility] No Panel InformationOrdered By: Dr. Lomeli on 02-01-2022 Troponin I High Sensitivity 22 pg/mL 3.0-78.[address] [facility] Comment on above: Please Note: New Kelly t Units and Gender Specific Reference Ranges. For more information see Policy Stat Procedure Media High Sensitivity Troponin (TNIH) and attachments. Estimated Creatinine Clearance Calc 60.20 ml/min [facility] Estimated GFR (MDRD) Amer 72 mL/min >[address] [facility] Comment on above: GFR Calc Estimated GFR (MDRD) Non-Af Amer 59 mL/min >[address] [facility] Comment on above: Non- GFR Calc No Panel Informationon 02-01 Troponin I High Sensitivity 22 pg/mL 3.0-78.[address] [facility] Work Phone: Comment on above: Please Note: New Kelly t Units and Gender Specific Reference Ranges. For more information see Policy Stat Procedure Media High Sensitivity Troponin (TNIH) and attachments. Platelets bldOrdered By: Dr. Lomeli on 02-01-2022 Platelets (Bld) [#/Vol] 206 10*3/uL 150-[address] [facility] Serum or plasma albumin luciana urement (mass/volume)Ordered By: Dr. Aguayo on 02-01-2022 Albumin [Mass/Vol] 3.0 g/dL 3.2-5.0 [facility] Serum or plasma calcium luciana urement (mass/volume)Ordered By: Dr. Lomeli on 02-01-2022 Calcium [Mass/Vol] 8.3 mg/dL 8.5-10.1 [facility] Serum or plasma creatinine m easurement (mass/volume)Ordered By: Dr. Lomeli on 02-01-2022 Creatinine [Mass/Vol] 1.31 mg/dL 0.70-1.30 [facility] Comment on above: The validity of the calculated GFR & GFRAA in patients over 70 years has not been determined. Clinical correlation is essential. Serum or plasma urea nitroge n measurement (mass/volume)Ordered By: Dr. Lomeli on 02-01-2022 Urea nitrogen [Mass/Vol] 6 mg/dL 7-[address] [facility] Thin prep Papanicolaou smear with manual screeningOrdered By: Dr. Aguayo on 02-01-2022 Thin prep Papanicolaou smear with manual screening 239 U/L 15-[address] [facility] Thin prep Papanicolaou smear with manual screeningOrdered By: Dr. Lomeli on 02-01-2022 Thin prep Papanicolaou smear with manual screening 8 5-[address] [facility] LABORATORYOrdered By: Amanda Ibrahim on 12-31-2021 HbA1c (Bld) [Mass fraction] 7.9 % [facility] Work Phone: Lab Performing Location [facility] Work Phone: Glucose Glucometer (BldC) [M ass/Vol]on 11-14-2021 Glucose [Mass/Vol] 270 mg/dL 74-106 [facility] Work Phone: Comment on above: MANAGEMENT OF PATIEN T CARE PER NURSING PROTOCOL Absolute lymphocyte counton 11-11-2021 Lymphocytes Auto (Unsp spec) [#/Vol] 1.48 10*3/uL 0.83-4.[address] [facility] Work Phone: Basophil percentageon 2021 Basophil percentage 3.4 mg/dL 2.5-4.9 [facility] Work Phone: Basophils/100 WBC (Bld) 0.6 % 0-1 [facility] Work Phone: Bilirubin [Mass/Vol] 0.60 mg/dL 0.20-1.00 [facility] Work Phone: Comment on above: For patients on eltr ombopag therapy, use of [employer] TBIL is not recommended. Chloride [Moles/Vol] 98 mmol/L 98-107 [facility] Work Phone: Eosinophils/100 WBC (Bld) 0.4 % 0-[address] [facility] Work Phone: Glucose [Mass/Vol] 284 mg/dL 74-106 [facility] Work Phone: Comment on above: Glucose result great er than or equal to 200 mg/dLsuggests DIABETES MELLITUS per A.D.A. criteria. Neutrophils (Bld) [#/Vol] 2.9 10*3/uL 2.0-7.[address] [facility] Work Phone: Neutrophils/100 WBC (Bld) 57.5 % 47-[address] [facility] Work Phone: Potassium [Moles/Vol] 3.5 mmol/L 3.5-5.1 [facility] Work Phone: Protein [Mass/Vol] 5.1 g/dL 6.4-8.2 [facility] Work Phone: Sodium [Moles/Vol] 137 mmol/L 136-145 [facility] Work Phone: WBC (Bld) [#/Vol] 5.0 10*3/uL 4.4-11.0 [facility] Work Phone: Blood erythrocytes count (nu mber/volume)on 11-11-2021 RBC (Bld) [#/Vol] 3.00 10*6/uL 4.6-6.2 [facility] Work Phone: Blood hemoglobin measurement (mass/volume)on 11-11-2021 Hemoglobin (Bld) [Mass/Vol] 11.3 g/dL 13.0-16.[address] [facility] Work Phone: Blood lymphocytes/100 leukoc yteson 11-11-2021 Lymphocytes/100 WBC (Bld) 29.7 % 19-[address] [facility] Work Phone: Blood monocytes/100 leukocyt eson 11-11-2021 Monocytes/100 WBC (Bld) 11.2 % 0-10 [facility] Work Phone: [phone] Blood platelet adequacy dete ction by light microscopyon 11-11-2021 Platelets LM Ql (Bld) ADEQUATE ADEQ [facility] Work Phone: [phone] Blood platelet mean volumeon 11-11-2021 Platelet mean volume (Bld) [Entitic vol] 10.7 fL 6.2-12.[address] [facility] Work Phone: [phone] Determination of erythrocyte mean corpuscular volume (MCV)on 11-11-2021 MCV (RBC) [Entitic vol] 110.7 fL 80-94 [facility] Work Phone: [phone] Direct bilirubinon Bilirubin.direct [Mass/Vol] 0.33 mg/dL 0.00-0.[address] [facility] Work Phone: [phone] Hematocrit Auto (Bld) [Volum e fraction]on 11-11-2021 Hematocrit (Bld) [Volume fraction] 33.2 % 40-[address] [facility] Work Phone: [phone] Laboratory - Chemistry and C hemistry - challengeon 11-11-2021 ALP [Catalytic activity/Vol] 133 U/L 45-[address] [facility] Work Phone: [phone] ALT [Catalytic activity/Vol] 55 U/L 16-[address] [facility] Work Phone: [phone] CO2 [Moles/Vol] 28.0 mmol/L 21.0-32.[address] [facility] Work Phone: [phone] Globulin (S) [Mass/Vol] 2.9 g/dL 2.2-4.2 [facility] Work Phone: [phone] Magnesium [Mass/Vol] 1.8 mg/dL 1.6-2.6 [facility] Work Phone: [phone] Urea nitrogen/Creatinine [Mass ratio] 7.8 mg/mg 10-[address] [facility] Work Phone: [phone] Laboratory - Drug toxicology on 11-11-2021 Amphetamines Ql (U) Negative <1000 ng/mL [facility] Work Phone: [phone] Benzodiazepines Ql (U) Negative < 200 ng/mL [facility] Work Phone: [phone] Cannabinoids Screen Ql (U) Negative < 50 ng/mL [facility] Work Phone: [phone] Cocaine Ql (U) Negative < 300 ng/mL [facility] Work Phone: [phone] Opiates Ql (U) Negative < 300 ng/mL [facility] Work Phone: [phone] Laboratory - Hematology and Cell countson 11-11-2021 Anisocytosis Ql (Bld) 1+ [facility] Work Phone: [phone] Erythrocyte distribution width (RBC) [Entitic vol] 71.1 fL 35.1-43.[address] [facility] Work Phone: [phone] Erythrocyte distribution width (RBC) [Ratio] 17.3 % 11.6-14.[address] [facility] Work Phone: [phone] Immature granulocytes/100 WBC (Bld) 0.600 % 0.0-0.[address] [facility] Work Phone: [phone] Comment on above: IG% - Immature Granu locytes (promyelocytes, myelocytes and metamyelocytes) > 1% indicates that a LEFT SHIFT is Present. MCH (RBC) [Entitic mass] 37.7 pg 27.0-32.[address] [facility] Work Phone: Nucleated RBC/100 WBC (Bld) [Ratio] 0 % 0-[address] [facility] Work Phone: [phone] MCHC Auto (RBC) [Mass/Vol]on 11-11-2021 MCHC (RBC) [Mass/Vol] 34.0 g/dL 32-36 [facility] Work Phone: Macrocytes detectionon 11-11 Macrocytes Ql (Bld) 1+ [facility] Work Phone: [phone] Panel Informationon 11-11 MDMA (Ecstasy) Screen Negative < 500 ng/mL [facility] Work Phone: [phone] Urine Barbiturates Screen Positive < 200 ng/mL [facility] Work Phone: Urine Drug Screen Comment [facility] Work Phone: Comment on above: CONFIRMATORY TESTING [...] Methadone Screen Negative < 300 ng/mL [facility] Work Phone: Estimated Creatinine Clearance Calc 63.79 ml/min [facility] Work Phone: Estimated GFR (MDRD) Amer 74 mL/min >[address] [facility] Work Phone: Comment on above: GFR Calc Estimated GFR (MDRD) Non-Af Amer 61 mL/min >[address] [facility] Work Phone: Comment on above: Non- GFR Calc Ethyl Alcohol Level 118.0 mg/dL [facility] Work Phone: Comment on above: The serum:whole bloo d ethanol ratio is approximately 1.14and varies slightly with hematocrit. Medical Alcohol reference interval and critical value innon-tolerant individuals; 50 - 100 Impairment 100 Intoxication 100 - 250 Severe Poisoning 250 - 400 Deep/possible fatal coma Platelets bldon 11-11-2021 Platelets (Bld) [#/Vol] 241 10*3/uL 150-[address] [facility] Work Phone: [phone] Serum or plasma albumin luciana urement (mass/volume)on 11-11-2021 Albumin [Mass/Vol] 2.2 g/dL 3.2-5.0 [facility] Work Phone: [phone] Serum or plasma calcium luciana urement (mass/volume)on 11-11-2021 Calcium [Mass/Vol] 7.9 mg/dL 8.5-10.1 [facility] Work Phone: Serum or plasma creatinine m easurement (mass/volume)on 11-11-2021 Creatinine [Mass/Vol] 1.28 mg/dL 0.70-1.30 [facility] Work Phone: Comment on above: The validity of the calculated GFR & GFRAA in patients over 70 years has not been determined. Clinical correlation is essential. Serum or plasma urea nitroge n measurement (mass/volume)on 11-11-2021 Urea nitrogen [Mass/Vol] 10 mg/dL 7-[address] [facility] Work Phone: Thin prep Papanicolaou smear with manual screeningon 11-11-2021 Thin prep Papanicolaou smear with manual screening 80 U/L 15-[address] [facility] Work Phone: Thin prep Papanicolaou smear with manual screening 11 5-[address] [facility] Work Phone: Urine phencyclidine (PCP) de tectionon 11-11-2021 Phencyclidine Ql (U) Negative < 25 ng/mL [facility] Work Phone: Basophil percentageon 2021 Chloride [Moles/Vol] 106 mmol/L 98-107 [facility] Work Phone: Glucose [Mass/Vol] 84 mg/dL 74-106 [facility] Work Phone: Potassium [Moles/Vol] 4.8 mmol/L 3.5-5.1 [facility] Work Phone: Sodium [Moles/Vol] 140 mmol/L 136-145 [facility] Work Phone: Glucose Glucometer (BldC) [M ass/Vol]on 11-08-2021 Glucose [Mass/Vol] 141 mg/dL 74-106 [facility] Work Phone: Comment on above: MANAGEMENT OF PATIEN T CARE PER NURSING PROTOCOL Laboratory - Chemistry and C hemistry - challengeon 11-08-2021 CO2 [Moles/Vol] 30.0 mmol/L 21.0-32.[address] [facility] Work Phone: Urea nitrogen/Creatinine [Mass ratio] 8.0 mg/mg 10-[address] [facility] Work Phone: No Panel Informationon 11-08 Estimated Creatinine Clearance Calc 88.72 ml/min [facility] Work Phone: Estimated GFR (MDRD) Amer 114 mL/min >[address] [facility] Work Phone: [phone] Comment on above: GFR Calc Estimated GFR (MDRD) Non-Af Amer 94 mL/min >[address] [facility] Work Phone: Comment on above: Non- GFR Calc Serum or plasma calcium luciana urement (mass/volume)on 11-08-2021 Calcium [Mass/Vol] 7.7 mg/dL 8.5-10.1 [facility] Work Phone: Serum or plasma creatinine m easurement (mass/volume)on 11-08-2021 Creatinine [Mass/Vol] 0.88 mg/dL 0.70-1.30 [facility] Work Phone: Comment on above: The validity of the calculated GFR & GFRAA in patients over 70 years has not been determined. Clinical correlation is essential. Serum or plasma urea nitroge n measurement (mass/volume)on 11-08-2021 Urea nitrogen [Mass/Vol] 7 mg/dL 7-[address] [facility] Work Phone: Thin prep Papanicolaou smear with manual screeningon 11-08-2021 Thin prep Papanicolaou smear with manual screening 4 5-[address] [facility] Work Phone: Laboratory - Chemistry and C hemistry - challengeon 11-06-2021 Magnesium [Mass/Vol] 2.6 mg/dL 1.6-2.6 [facility] Work Phone: Comment on above: Slight Hemolysis, Re sult may be falsely increased. Absolute lymphocyte counton 11-05-2021 Lymphocytes Auto (Unsp spec) [#/Vol] 1.65 10*3/uL 0.83-4.[address] [facility] Work Phone: Basophil percentageon 2021 Bilirubin [Mass/Vol] 0.80 mg/dL 0.20-1.00 [facility] Work Phone: Comment on above: For patients on eltr ombopag therapy, use of [employer] TBIL is not recommended. Chloride [Moles/Vol] 92 mmol/L 98-107 [facility] Work Phone: Glucose [Mass/Vol] 310 mg/dL 74-106 [facility] Work Phone: Comment on above: Glucose result great er than or equal to 200 mg/dLsuggests DIABETES MELLITUS per A.D.A. criteria. Potassium [Moles/Vol] 2.5 mmol/L 3.5-5.1 [facility] Work Phone: Comment on above: Moderate Hemolysis, Result may be falsely increased. Critical Result(s) Called at: 17:34:59 11/05/2021 by: Carlos Minor to Galileo Short RN (ER). Results read back by same. Protein [Mass/Vol] 5.6 g/dL 6.4-8.2 [facility] Work Phone: Sodium [Moles/Vol] 138 mmol/L 136-145 [facility] Work Phone: Basophils/100 WBC (Bld) 1.0 % 0-1 [facility] Work Phone: Eosinophils/100 WBC (Bld) 0.5 % 0-[address] [facility] Work Phone: Neutrophils (Bld) [#/Vol] 3.4 10*3/uL 2.0-7.[address] [facility] Work Phone: Neutrophils/100 WBC (Bld) 56.9 % 47-[address] [facility] Work Phone: WBC (Bld) [#/Vol] 5.9 10*3/uL 4.4-11.0 [facility] Work Phone: Blood erythrocytes count (nu mber/volume)on 11-05-2021 RBC (Bld) [#/Vol] 3.22 10*6/uL 4.6-6.2 [facility]: [phone] Blood hemoglobin measurement (mass/volume)on 11-05-2021 Hemoglobin (Bld) [Mass/Vol] 12.0 g/dL 13.0-16.[address] [facility] Work Phone: [phone] Blood lymphocytes/100 leukoc yteson 11-05-2021 Lymphocytes/100 WBC (Bld) 27.9 % 19-[address] [facility] Work Phone: [phone] Blood monocytes/100 leukocyt eson 11-05-2021 Monocytes/100 WBC (Bld) 13.4 % 0-10 [facility] Work Phone: [phone] Blood platelet mean volumeon 11-05-2021 Platelet mean volume (Bld) [Entitic vol] 11.5 fL 6.2-12.[address] [facility] Work Phone: [phone] Determination of erythrocyte mean corpuscular volume (MCV)on 11-05-2021 MCV (RBC) [Entitic vol] 107.8 fL 80-94 [facility] Work Phone: [phone] Hematocrit Auto (Bld) [Volum e fraction]on 11-05-2021 Hematocrit (Bld) [Volume fraction] 34.7 % 40-[address] [facility] Work Phone: Laboratory - Chemistry and C hemistry - challengeon 11-05-2021 ALP [Catalytic activity/Vol] 150 U/L 45-[address] [facility] Work Phone: [phone] ALT [Catalytic activity/Vol] 78 U/L 16-[address] [facility] Work Phone: [phone] CO2 [Moles/Vol] 27.0 mmol/L 21.0-32.[address] [facility] Work Phone: [phone] Globulin (S) [Mass/Vol] 3.3 g/dL 2.2-4.2 [facility] Work Phone: [phone] Lipase [Catalytic activity/Vol] 11 U/L 73-[address] [facility] Work Phone: [phone] Urea nitrogen/Creatinine [Mass ratio] 6.1 mg/mg 10-[address] [facility] Work Phone: [phone] Laboratory - Drug toxicology on 11-05-2021 Amphetamines Ql (U) Negative <1000 ng/mL [facility] Work Phone: [phone] Benzodiazepines Ql (U) Negative < 200 ng/mL [facility] Work Phone: [phone] Cannabinoids Screen Ql (U) Negative < 50 ng/mL [facility] Work Phone: [phone] Cocaine Ql (U) Negative < 300 ng/mL [facility] Work Phone: [phone] Opiates Ql (U) Negative < 300 ng/mL [facility] Work Phone: [phone] Laboratory - Hematology and Cell countson 11-05-2021 Erythrocyte distribution width (RBC) [Entitic vol] 62.5 fL 35.1-43.[address] [facility] Work Phone: [phone] Erythrocyte distribution width (RBC) [Ratio] 15.7 % 11.6-14.[address] [facility] Work Phone: [phone] Immature granulocytes/100 WBC (Bld) 0.300 % 0.0-0.[address] [facility] Work Phone: [phone] Comment on above: IG% - Immature Granu locytes (promyelocytes, myelocytes and metamyelocytes) > 1% indicates that a LEFT SHIFT is Present. MCH (RBC) [Entitic mass] 37.3 pg 27.0-32.[address] [facility] Work Phone: [phone] Nucleated RBC/100 WBC (Bld) [Ratio] 0 % 0-[address] [facility] Work Phone: [phone] MCHC Auto (RBC) [Mass/Vol]on 11-05-2021 MCHC (RBC) [Mass/Vol] 34.6 g/dL 32-36 [facility] Work Phone: [phone] Panel Informationon 11-05 MDMA (Ecstasy) Screen Negative < 500 ng/mL [facility] Work Phone: Urine Barbiturates Screen Negative < 200 ng/mL [facility] Work Phone: [phone] Urine Drug Screen Comment [facility] Work Phone: Comment on above: CONFIRMATORY TESTING [...] Methadone Screen Negative < 300 ng/mL [facility] Work Phone: Estimated Creatinine Clearance Calc 73.66 ml/min [facility] Work Phone: [phone] Estimated GFR (MDRD) Amer 84 mL/min >[address] [facility] Work Phone: [phone] Comment on above: GFR Calc Estimated GFR (MDRD) Non-Af Amer 69 mL/min >[address] [facility] Work Phone: Comment on above: Non- GFR Calc Ethyl Alcohol Level 253.0 mg/dL [facility] Work Phone: Comment on above: The serum:whole bloo d ethanol ratio is approximately 1.14and varies slightly with hematocrit. Medical Alcohol reference interval and critical value innon-tolerant individuals; 50 - 100 Impairment 100 Intoxication 100 - 250 Severe Poisoning 250 - 400 Deep/possible fatal coma Platelets bldon 11-05-2021 Platelets (Bld) [#/Vol] 215 10*3/uL 150-[address] [facility] Work Phone: [phone] Serum or plasma albumin luciana urement (mass/volume)on 11-05-2021 Albumin [Mass/Vol] 2.3 g/dL 3.2-5.0 [facility] Work Phone: [phone] Serum or plasma albumin/glob ulin mass ratioon 11-05-2021 Albumin/Globulin [Mass ratio] 0.7 {ratio} 0.9-2.[address] [facility] Work Phone: [phone] Serum or plasma calcium luciana urement (mass/volume)on 11-05-2021 Calcium [Mass/Vol] 7.8 mg/dL 8.5-10.1 [facility] Work Phone: [phone] Serum or plasma creatinine m easurement (mass/volume)on 11-05-2021 Creatinine [Mass/Vol] 1.15 mg/dL 0.70-1.30 [facility] Work Phone: [phone] Comment on above: The validity of the calculated GFR & GFRAA in patients over 70 years has not been determined. Clinical correlation is essential. Serum or plasma urea nitroge n measurement (mass/volume)on 11-05-2021 Urea nitrogen [Mass/Vol] 7 mg/dL 7-[address] [facility] Work Phone: [phone] Thin prep Papanicolaou smear with manual screeningon 11-05-2021 Thin prep Papanicolaou smear with manual screening 163 U/L 15-[address] [facility] Work Phone: [phone] Comment on above: Moderate Hemolysis, Result may be falsely increased. Thin prep Papanicolaou smear with manual screening 19 5-[address] [facility] Work Phone: [phone] Urine phencyclidine (PCP) de tectionon 11-05-2021 Phencyclidine Ql (U) Negative < 25 ng/mL [facility] Work Phone: [phone] Absolute lymphocyte counton 10-06-2021 Lymphocytes Auto (Unsp spec) [#/Vol] 1.72 10*3/uL 0.83-4.[address] [facility] Work Phone: [phone] Basophil percentageon 2021 Basophils/100 WBC (Bld) 2.1 % 0-1 [facility] Work Phone: [phone] Chloride [Moles/Vol] 108 mmol/L 98-107 [facility] Work Phone: Eosinophils/100 WBC (Bld) 2.6 % 0-[address] [facility] Work Phone: Glucose [Mass/Vol] 236 mg/dL 74-106 [facility] Work Phone: Comment on above: Glucose result great er than or equal to 200 mg/dLsuggests DIABETES MELLITUS per A.D.A. criteria. Neutrophils (Bld) [#/Vol] 1.7 10*3/uL 2.0-7.[address] [facility] Work Phone: Neutrophils/100 WBC (Bld) 40.4 % 47-[address] [facility] Work Phone: Potassium [Moles/Vol] 3.4 mmol/L 3.5-5.1 [facility] Work Phone: Sodium [Moles/Vol] 144 mmol/L 136-145 [facility] Work Phone: WBC (Bld) [#/Vol] 4.3 10*3/uL 4.4-11.0 [facility] Work Phone: Blood erythrocytes count (nu mber/volume)on 10-06-2021 RBC (Bld) [#/Vol] 3.85 10*6/uL 4.6-6.2 [facility] Work Phone: Blood hemoglobin measurement (mass/volume)on 10-06-2021 Hemoglobin (Bld) [Mass/Vol] 13.6 g/dL 13.0-16.[address] [facility] Work Phone: Blood lymphocytes/100 leukoc yteson 10-06-2021 Lymphocytes/100 WBC (Bld) 40.5 % 19-[address] [facility] Work Phone: Blood monocytes/100 leukocyt eson 10-06-2021 Monocytes/100 WBC (Bld) 13.9 % 0-10 [facility] Work Phone: Blood platelet mean volumeon 10-06-2021 Platelet mean volume (Bld) [Entitic vol] 9.6 fL 6.2-12.[address] [facility] Work Phone: [phone] Determination of erythrocyte mean corpuscular volume (MCV)on 10-06-2021 MCV (RBC) [Entitic vol] 101.0 fL 80-94 [facility] Work Phone: [phone] Glucose Glucometer (BldC) [M ass/Vol]on 10-06-2021 Glucose [Mass/Vol] 211 mg/dL 74-106 [facility] Work Phone: [phone] Comment on above: MANAGEMENT OF PATIEN T CARE PER NURSING PROTOCOL Hematocrit Auto (Bld) [Volum e fraction]on 10-06-2021 Hematocrit (Bld) [Volume fraction] 38.9 % 40-[address] [facility] Work Phone: Laboratory - Chemistry and C hemistry - challengeon 10-06-2021 CO2 [Moles/Vol] 28.0 mmol/L 21.0-32.[address] [facility] Work Phone: [phone] Urea nitrogen/Creatinine [Mass ratio] 4.3 mg/mg 10-[address] [facility] Work Phone: [phone] Laboratory - Drug toxicology on 10-06-2021 Amphetamines Ql (U) Negative <1000 ng/mL [facility] Work Phone: Benzodiazepines Ql (U) Negative < 200 ng/mL [facility] Work Phone: [phone] Cannabinoids Screen Ql (U) Negative < 50 ng/mL [facility] Work Phone: [phone] Cocaine Ql (U) Negative < 300 ng/mL [facility] Work Phone: [phone] Opiates Ql (U) Negative < 300 ng/mL [facility] Work Phone: [phone] Laboratory - Hematology and Cell countson 10-06-2021 Erythrocyte distribution width (RBC) [Entitic vol] 52.8 fL 35.1-43.[address] [facility] Work Phone: [phone] Erythrocyte distribution width (RBC) [Ratio] 14.3 % 11.6-14.[address] [facility] Work Phone: [phone] Immature granulocytes/100 WBC (Bld) 0.500 % 0.0-0.[address] [facility] Work Phone: [phone] Comment on above: IG% - Immature Granu locytes (promyelocytes, myelocytes and metamyelocytes) > 1% indicates that a LEFT SHIFT is Present. MCH (RBC) [Entitic mass] 35.3 pg 27.0-32.[address] [facility] Work Phone: [phone] Nucleated RBC/100 WBC (Bld) [Ratio] 0 % 0-[address] [facility] Work Phone: [phone] MCHC Auto (RBC) [Mass/Vol]on 10-06-2021 MCHC (RBC) [Mass/Vol] 35.0 g/dL 32-36 [facility] Work Phone: [phone] Panel Informationon 10-06 Ethyl Alcohol Level 107.0 mg/dL [facility] Work Phone: [phone] Comment on above: The serum:whole bloo d ethanol ratio is approximately 1.14and varies slightly with hematocrit. Medical Alcohol reference interval and critical value innon-tolerant individuals; 50 - 100 Impairment 100 Intoxication 100 - 250 Severe Poisoning 250 - 400 Deep/possible fatal coma Estimated Creatinine Clearance Calc 63.62 ml/min [facility] Work Phone: [phone] Estimated GFR (MDRD) Amer 83 mL/min >[address] [facility] Work Phone: [phone] Comment on above: GFR Calc Estimated GFR (MDRD) Non-Af Amer 68 mL/min >[address] [facility] Work Phone: [phone] Comment on above: Non- GFR Calc MDMA (Ecstasy) Screen Negative < 500 ng/mL [facility] Work Phone: [phone] Urine Barbiturates Screen Negative < 200 ng/mL [facility] Work Phone: [phone] Urine Drug Screen Comment [facility] Work Phone: [phone] Comment on above: CONFIRMATORY TESTING FOR ALL [...] Methadone Screen Negative < 300 ng/mL [facility] Work Phone: Platelets bldon 10-06-2021 Platelets (Bld) [#/Vol] 232 10*3/uL 150-[address] [facility] Work Phone: Serum or plasma calcium luciana urement (mass/volume)on 10-06-2021 Calcium [Mass/Vol] 8.5 mg/dL 8.5-10.1 [facility] Work Phone: Serum or plasma creatinine m easurement (mass/volume)on 10-06-2021 Creatinine [Mass/Vol] 1.16 mg/dL 0.70-1.30 [facility] Work Phone: Comment on above: The validity of the calculated GFR & GFRAA in patients over 70 years has not been determined. Clinical correlation is essential. Serum or plasma urea nitroge n measurement (mass/volume)on 10-06-2021 Urea nitrogen [Mass/Vol] 5 mg/dL 7-[address] [facility] Work Phone: Thin prep Papanicolaou smear with manual screeningon 10-06-2021 Thin prep Papanicolaou smear with manual screening 8 5-[address] [facility] Work Phone: Urine phencyclidine (PCP) de tectionon 10-06-2021 Phencyclidine Ql (U) Negative < 25 ng/mL [facility] Work Phone: Absolute lymphocyte counton 09-30-2021 Lymphocytes Auto (Unsp spec) [#/Vol] 1.63 10*3/uL 0.83-4.[address] [facility] Work Phone: Basophil percentageon 2021 Basophils/100 WBC (Bld) 0.7 % 0-1 [facility] Work Phone: Bilirubin [Mass/Vol] 0.40 mg/dL 0.20-1.00 [facility] Work Phone: Comment on above: For patients on eltr ombopag therapy, use of [employer] TBIL is not recommended. Chloride [Moles/Vol] 97 mmol/L 98-107 [facility] Work Phone: Eosinophils/100 WBC (Bld) 0.4 % 0-[address] [facility] Work Phone: Glucose [Mass/Vol] 221 mg/dL 74-106 [facility] Work Phone: Comment on above: Glucose result great er than or equal to 200 mg/dLsuggests DIABETES MELLITUS per A.D.A. criteria. Neutrophils (Bld) [#/Vol] 5.1 10*3/uL 2.0-7.[address] [facility] Work Phone: Neutrophils/100 WBC (Bld) 69.1 % 47-[address] [facility] Work Phone: Potassium [Moles/Vol] 3.2 mmol/L 3.5-5.1 [facility] Work Phone: Protein [Mass/Vol] 6.1 g/dL 6.4-8.2 [facility] Work Phone: Sodium [Moles/Vol] 135 mmol/L 136-145 [facility] Work Phone: WBC (Bld) [#/Vol] 7.4 10*3/uL 4.4-11.0 [facility] Work Phone: Blood erythrocytes count (nu mber/volume)on 09-30-2021 RBC (Bld) [#/Vol] 3.92 10*6/uL 4.6-6.2 [facility] Work Phone: Blood hemoglobin measurement (mass/volume)on 09-30-2021 Hemoglobin (Bld) [Mass/Vol] 13.7 g/dL 13.0-16.[address] [facility] Work Phone: Blood lymphocytes/100 leukoc yteson 09-30-2021 Lymphocytes/100 WBC (Bld) 22.0 % 19-[address] [facility] Work Phone: Blood monocytes/100 leukocyt eson 09-30-2021 Monocytes/100 WBC (Bld) 7.3 % 0-10 [facility] Work Phone: Blood platelet mean volumeon 09-30-2021 Platelet mean volume (Bld) [Entitic vol] 10.4 fL 6.2-12.[address] [facility] Work Phone: Determination of erythrocyte mean corpuscular volume (MCV)on 09-30-2021 MCV (RBC) [Entitic vol] 100.3 fL 80-94 [facility] Work Phone: Hematocrit Auto (Bld) [Volum e fraction]on 09-30-2021 Hematocrit (Bld) [Volume fraction] 39.3 % 40-[address] [facility] Work Phone: Laboratory - Chemistry and C hemistry - challengeon 09-30-2021 ALP [Catalytic activity/Vol] 128 U/L 45-[address] [facility] Work Phone: ALT [Catalytic activity/Vol] 72 U/L 16-[address] [facility] Work Phone: [phone] CO2 [Moles/Vol] 24.0 mmol/L 21.0-32.[address] [facility] Work Phone: [phone] Globulin (S) [Mass/Vol] 3.3 g/dL 2.2-4.2 [facility] Work Phone: Urea nitrogen/Creatinine [Mass ratio] 8.7 mg/mg 10-[address] [facility] Work Phone: Laboratory - Hematology and Cell countson 09-30-2021 Erythrocyte distribution width (RBC) [Entitic vol] 49.8 fL 35.1-43.[address] [facility] Work Phone: Erythrocyte distribution width (RBC) [Ratio] 13.5 % 11.6-14.[address] [facility] Work Phone: Immature granulocytes/100 WBC (Bld) 0.500 % 0.0-0.[address] [facility] Work Phone: Comment on above: IG% - Immature Granu locytes (promyelocytes, myelocytes and metamyelocytes) > 1% indicates that a LEFT SHIFT is Present. MCH (RBC) [Entitic mass] 34.9 pg 27.0-32.[address] [facility] Work Phone: Nucleated RBC/100 WBC (Bld) [Ratio] 0 % 0-[address] [facility] Work Phone: MCHC Auto (RBC) [Mass/Vol]on 09-30-2021 MCHC (RBC) [Mass/Vol] 34.9 g/dL 32-36 [facility] Work Phone: No Panel Informationon 09-30 Estimated Creatinine Clearance Calc 55.84 ml/min [facility] Work Phone: Estimated GFR (MDRD) Amer 68 mL/min >[address] [facility] Work Phone: Comment on above: GFR Calc Estimated GFR (MDRD) Non-Af Amer 56 mL/min >[address] [facility] Work Phone: Comment on above: Non- GFR Calc Ethyl Alcohol Level 141.0 mg/dL [facility] Work Phone: Comment on above: The serum:whole bloo d ethanol ratio is approximately 1.14and varies slightly with hematocrit. Medical Alcohol reference interval and critical value innon-tolerant individuals; 50 - 100 Impairment 100 Intoxication 100 - 250 Severe Poisoning 250 - 400 Deep/possible fatal coma Troponin I High Sensitivity 34 pg/mL 3.0-78.[address] [facility] Work Phone: Comment on above: Please Note: New Kelly t Units and Gender Specific Reference Ranges. For more information see Policy Stat Procedure Media High Sensitivity Troponin (TNIH) and attachments. Platelets bldon 09-30-2021 Platelets (Bld) [#/Vol] 191 10*3/uL 150-[address] [facility] Work Phone: Serum or plasma albumin luciana urement (mass/volume)on 09-30-2021 Albumin [Mass/Vol] 2.8 g/dL 3.2-5.0 [facility] Work Phone: Serum or plasma albumin/glob ulin mass ratioon 09-30-2021 Albumin/Globulin [Mass ratio] 0.8 {ratio} 0.9-2.[address] [facility] Work Phone: [phone] Serum or plasma calcium luciana urement (mass/volume)on 09-30-2021 Calcium [Mass/Vol] 8.4 mg/dL 8.5-10.1 [facility] Work Phone: Serum or plasma creatinine m easurement (mass/volume)on 09-30-2021 Creatinine [Mass/Vol] 1.38 mg/dL 0.70-1.30 [facility] Work Phone: Comment on above: The validity of the calculated GFR & GFRAA in patients over 70 years has not been determined. Clinical correlation is essential. Serum or plasma urea nitroge n measurement (mass/volume)on 09-30-2021 Urea nitrogen [Mass/Vol] 12 mg/dL 7-[address] [facility] Work Phone: [phone] Thin prep Papanicolaou smear with manual screeningon 09-30-2021 Thin prep Papanicolaou smear with manual screening 98 U/L 15-[address] [facility] Work Phone: [phone] Thin prep Papanicolaou smear with manual screening 14 5-[address] [facility] Work Phone: LABORATORYOrdered By: Ade [...] ass/Vol]on 06-01-2021 Glucose [Mass/Vol] 202 mg/dL 74-106 [facility] Work Phone: Comment on above: MANAGEMENT OF PATIEN T CARE PER NURSING PROTOCOL Absolute lymphocyte counton 05-29-2021 Lymphocytes Auto (Unsp spec) [#/Vol] 0.95 10*3/uL 0.83-4.[address] [facility] Work Phone: Acetaminophen level (mass/vo lume)on 05-29-2021 Acetaminophen (Unsp spec) [Mass/Vol] < 2.0 ug/mL 10.0-30.[address] [facility] Work Phone: Basophil percentageon 2021 Basophils/100 WBC (Bld) 1.1 % 0-1 [facility] Work Phone: Bilirubin [Mass/Vol] 0.20 mg/dL 0.20-1.00 [facility] Work Phone: Comment on above: For patients on eltr ombopag therapy, use of [employer] TBIL is not recommended. Chloride [Moles/Vol] 102 mmol/L 98-107 [facility] Work Phone: Eosinophils/100 WBC (Bld) 0.9 % 0-[address] [facility] Work Phone: Glucose [Mass/Vol] 323 mg/dL 74-106 [facility] Work Phone: Comment on above: Glucose result great er than or equal to 200 mg/dLsuggests DIABETES MELLITUS per A.D.A. criteria. Neutrophils (Bld) [#/Vol] 5.6 10*3/uL 2.0-7.[address] [facility] Work Phone: Neutrophils/100 WBC (Bld) 76.3 % 47-[address] [facility] Work Phone: Potassium [Moles/Vol] 3.8 mmol/L 3.5-5.1 [facility] Work Phone: Protein [Mass/Vol] 6.7 g/dL 6.4-8.2 [facility] Work Phone: Sodium [Moles/Vol] 141 mmol/L 136-145 [facility] Work Phone: WBC (Bld) [#/Vol] 7.4 10*3/uL 4.4-11.0 [facility] Work Phone: Blood erythrocytes count (nu mber/volume)on 05-29-2021 RBC (Bld) [#/Vol] 4.06 10*6/uL 4.6-6.2 [facility] Work Phone: Blood hemoglobin measurement (mass/volume)on 05-29-2021 Hemoglobin (Bld) [Mass/Vol] 13.0 g/dL 13.0-16.[address] [facility] Work Phone: Blood lymphocytes/100 leukoc yteson 05-29-2021 Lymphocytes/100 WBC (Bld) 12.9 % 19-[address] [facility] Work Phone: Blood monocytes/100 leukocyt eson 05-29-2021 Monocytes/100 WBC (Bld) 8.3 % 0-10 [facility] Work Phone: Blood platelet mean volumeon 05-29-2021 Platelet mean volume (Bld) [Entitic vol] 10.9 fL 6.2-12.[address] [facility] Work Phone: Determination of erythrocyte mean corpuscular volume (MCV)on 05-29-2021 MCV (RBC) [Entitic vol] 94.3 fL 80-94 [facility] Work Phone: Direct bilirubinon 2 Bilirubin.direct [Mass/Vol] 0.12 mg/dL 0.00-0.[address] [facility] Work Phone: Hematocrit Auto (Bld) [Volum e fraction]on 05-29-2021 Hematocrit (Bld) [Volume fraction] 38.3 % 40-[address] [facility] Work Phone: Laboratory - Chemistry and C hemistry - challengeon 05-29-2021 ALP [Catalytic activity/Vol] 105 U/L 45-[address] [facility] Work Phone: ALT [Catalytic activity/Vol] 23 U/L 16-[address] [facility] Work Phone: CO2 [Moles/Vol] 29.0 mmol/L 21.0-32.[address] [facility] Work Phone: Globulin (S) [Mass/Vol] 3.2 g/dL 2.2-4.2 [facility] Work Phone: Urea nitrogen/Creatinine [Mass ratio] 10.9 mg/mg 10-[address] [facility] Work Phone: Laboratory - Drug toxicology on 05-29-2021 Amphetamines Ql (U) Negative [facility] Work Phone: Benzodiazepines Ql (U) Negative [facility] Work Phone: Cannabinoids Screen Ql (U) Negative [facility] Work Phone: Cocaine Ql (U) Negative [facility] Work Phone: Opiates Ql (U) Negative [facility] Work Phone: Laboratory - Hematology and Cell countson 05-29-2021 Erythrocyte distribution width (RBC) [Entitic vol] 48.4 fL 35.1-43.[address] [facility] Work Phone: [phone] Erythrocyte distribution width (RBC) [Ratio] 13.9 % 11.6-14.[address] [facility] Work Phone: [phone] Immature granulocytes/100 WBC (Bld) 0.500 % 0.0-0.[address] [facility] Work Phone: [phone] Comment on above: IG% - Immature Granu locytes (promyelocytes, myelocytes and metamyelocytes) > 1% indicates that a LEFT SHIFT is Present. MCH (RBC) [Entitic mass] 32.0 pg 27.0-32.[address] [facility] Work Phone: [phone] Nucleated RBC/100 WBC (Bld) [Ratio] 0 % 0-[address] [facility] Work Phone: [phone] MCHC Auto (RBC) [Mass/Vol]on 05-29-2021 MCHC (RBC) [Mass/Vol] 33.9 g/dL 32-36 [facility] Work Phone: [phone] Panel Informationon 05-29 MDMA (Ecstasy) Screen Negative [facility] Work Phone: [phone] Urine Barbiturates Screen Negative [facility] Work Phone: [phone] Urine Drug Screen Comment [facility] Work Phone: [phone] Comment on above: CONFIRMATORY TESTING FOR ALL [...] USE TESTMNEMONIC: [facility] Urine Methadone Screen Negative [facility] Work Phone: [phone] Estimated Creatinine Clearance Calc 71.63 ml/min [facility] Work Phone: [phone] Estimated GFR (MDRD) Amer 81 mL/min >[address] [facility] Work Phone: Comment on above: GFR Calc Estimated GFR (MDRD) Non-Af Amer 67 mL/min >[address] [facility] Work Phone: Comment on above: Non- GFR Calc Ethyl Alcohol Level 46.0 mg/dL [facility] Work Phone: Comment on above: The serum:whole bloo d ethanol ratio is approximately 1.14and varies slightly with hematocrit. Medical Alcohol reference interval and critical value innon-tolerant individuals; 50 - 100 Impairment 100 Intoxication 100 - 250 Severe Poisoning 250 - 400 Deep/possible fatal coma Platelets bldon 05-29-2021 Platelets (Bld) [#/Vol] 220 10*3/uL 150-[address] [facility] Work Phone: Serum or plasma albumin luciana urement (mass/volume)on 05-29-2021 Albumin [Mass/Vol] 3.5 g/dL 3.2-5.0 [facility] Work Phone: Serum or plasma calcium luciana urement (mass/volume)on 05-29-2021 Calcium [Mass/Vol] 8.2 mg/dL 8.5-10.1 [facility] Work Phone: Serum or plasma creatinine m easurement (mass/volume)on 05-29-2021 Creatinine [Mass/Vol] 1.19 mg/dL 0.70-1.30 [facility] Work Phone: Comment on above: The validity of the calculated GFR & GFRAA in patients over 70 years has not been determined. Clinical correlation is essential. Serum or plasma salicylates measurement (mass/volume)on 05-29-2021 Salicylates [Mass/Vol] 12.6 mg/dL 2.8-20.0 [facility] Work Phone: Serum or plasma urea nitroge n measurement (mass/volume)on 05-29-2021 Urea nitrogen [Mass/Vol] 13 mg/dL 7-[address] [facility] Work Phone: Thin prep Papanicolaou smear with manual screeningon 05-29-2021 Thin prep Papanicolaou smear with manual screening 33 U/L 15-[address] [facility] Work Phone: Thin prep Papanicolaou smear with manual screening 10 5-[address] [facility] Work Phone: [phone] Urine phencyclidine (PCP) de tectionon 05-29-2021 Phencyclidine Ql (U) Negative [facility] Work Phone: [phone] Glucose Glucometer (BldC) [M ass/Vol]on 05-22-2021 Glucose [Mass/Vol] 213 mg/dL 74-106 [facility] Work Phone: Comment on above: MANAGEMENT OF PATIEN T CARE PER NURSING PROTOCOL No Panel Informationon 05-22 Ethyl Alcohol Level 101.0 mg/dL [facility] Work Phone: Comment on above: The serum:whole bloo d ethanol ratio is approximately 1.14and varies slightly with hematocrit. Medical Alcohol reference interval and critical value innon-tolerant individuals; 50 - 100 Impairment 100 Intoxication 100 - 250 Severe Poisoning 250 - 400 Deep/possible fatal coma Absolute lymphocyte counton 05-21-2021 Lymphocytes Auto (Unsp spec) [#/Vol] 1.24 10*3/uL 0.83-4.[address] [facility] Work Phone: Basophil percentageon 2021 Basophils/100 WBC (Bld) 2.0 % 0-1 [facility] Work Phone: [phone] Bilirubin [Mass/Vol] 0.20 mg/dL 0.20-1.00 [facility] Work Phone: [phone] Comment on above: For patients on eltr ombopag therapy, use of [employer] TBIL is not recommended. Chloride [Moles/Vol] 105 mmol/L 98-107 [facility] Work Phone: Eosinophils/100 WBC (Bld) 2.2 % 0-[address] [facility] Work Phone: [phone] Glucose [Mass/Vol] 440 mg/dL 74-106 [facility] Work Phone: [phone] Comment on above: Glucose result great er than or equal to 200 mg/dLsuggests DIABETES MELLITUS per A.D.A. criteria. Neutrophils (Bld) [#/Vol] 4.0 10*3/uL 2.0-7.[address] [facility] Work Phone: [phone] Neutrophils/100 WBC (Bld) 66.7 % 47-[address] [facility] Work Phone: [phone] Potassium [Moles/Vol] 3.5 mmol/L 3.5-5.1 [facility]: [phone] Protein [Mass/Vol] 6.7 g/dL 6.4-8.2 [facility] Work Phone: [phone] Sodium [Moles/Vol] 142 mmol/L 136-145 [facility] Work Phone: [phone] WBC (Bld) [#/Vol] 6.0 10*3/uL 4.4-11.0 [facility] Work Phone: [phone] Blood erythrocytes count (nu mber/volume)on 05-21-2021 RBC (Bld) [#/Vol] 4.36 10*6/uL 4.6-6.[facility]: [phone] Blood hemoglobin measurement (mass/volume)on 05-21-2021 Hemoglobin (Bld) [Mass/Vol] 14.1 g/dL 13.0-16.[address] [facility] Work Phone: [phone] Blood lymphocytes/100 leukoc yteson 05-21-2021 Lymphocytes/100 WBC (Bld) 20.5 % 19-[address] [facility] Work Phone: [phone] Blood monocytes/100 leukocyt eson 05-21-2021 Monocytes/100 WBC (Bld) 8.3 % 0-10 [facility] Work Phone: [phone] Blood platelet mean volumeon 05-21-2021 Platelet mean volume (Bld) [Entitic vol] 9.9 fL 6.2-12.[address] [facility] Work Phone: [phone] Determination of erythrocyte mean corpuscular volume (MCV)on 05-21-2021 MCV (RBC) [Entitic vol] 93.8 fL 80-94 [facility] Work Phone: Hematocrit Auto (Bld) [Volum e fraction]on 05-21-2021 Hematocrit (Bld) [Volume fraction] 40.9 % 40-[address] [facility] Work Phone: INR in Blood by Coagulation assayon 05-21-2021 INR Coag (Bld) [Relative time] 1.1 {INR} [facility] Work Phone: Laboratory - Chemistry and C hemistry - challengeon 05-21-2021 ALP [Catalytic activity/Vol] 109 U/L 45-[address] [facility] Work Phone: ALT [Catalytic activity/Vol] 23 U/L 16-[address] [facility] Work Phone: CO2 [Moles/Vol] 27.0 mmol/L 21.0-32.[address] [facility] Work Phone: Globulin (S) [Mass/Vol] 3.3 g/dL 2.2-4.2 [facility] Work Phone: Urea nitrogen/Creatinine [Mass ratio] 8.5 mg/mg 10-[address] [facility] Work Phone: Laboratory - Coagulationon 0 05-21-2021 PT Coag (PPP) [Time] 13.9 s 11.7-14.9 [facility] Work Phone: Laboratory - Drug toxicology on 05-21-2021 Amphetamines Ql (U) Negative [facility] Work Phone: Benzodiazepines Ql (U) Negative [facility] Work Phone: Cannabinoids Screen Ql (U) Negative [facility] Work Phone: Cocaine Ql (U) Negative [facility] Work Phone: Opiates Ql (U) Negative [facility] Work Phone: Laboratory - Hematology and Cell countson 05-21-2021 Erythrocyte distribution width (RBC) [Entitic vol] 48.5 fL 35.1-43.[address] [facility] Work Phone: [phone] Erythrocyte distribution width (RBC) [Ratio] 13.9 % 11.6-14.[address] [facility] Work Phone: [phone] Immature granulocytes/100 WBC (Bld) 0.300 % 0.0-0.[address] [facility] Work Phone: [phone] Comment on above: IG% - Immature Granu locytes (promyelocytes, myelocytes and metamyelocytes) > 1% indicates that a LEFT SHIFT is Present. MCH (RBC) [Entitic mass] 32.3 pg 27.0-32.[address] [facility] Work Phone: [phone] Nucleated RBC/100 WBC (Bld) [Ratio] 0 % 0-[address] [facility] Work Phone: [phone] MCHC Auto (RBC) [Mass/Vol]on 05-21-2021 MCHC (RBC) [Mass/Vol] 34.5 g/dL 32-36 [facility] Work Phone: [phone] No Panel Informationon 05-21 MDMA (Ecstasy) Screen Negative [facility] Work Phone: [phone] Urine Barbiturates Screen Negative [facility] Work Phone: [phone] Urine Drug Screen Comment [facility] Work Phone: [phone] Comment on above: CONFIRMATORY TESTING FOR ALL [...] USE TESTMNEMONIC: [facility] Urine Methadone Screen Negative [facility] Work Phone: [phone] Estimated Creatinine Clearance Calc 68.24 ml/min [facility] Work Phone: [phone] Estimated GFR (MDRD) Amer 81 mL/min >[address] [facility] Work Phone: Comment on above: GFR Calc Estimated GFR (MDRD) Non-Af Amer 67 mL/min >[address] [facility] Work Phone: Comment on above: Non- GFR Calc Platelets bldon 05-21-2021 Platelets (Bld) [#/Vol] 232 10*3/uL 150-[address] [facility] Work Phone: Serum or plasma albumin luciana urement (mass/volume)on 05-21-2021 Albumin [Mass/Vol] 3.4 g/dL 3.2-5.0 [facility] Work Phone: Serum or plasma albumin/glob ulin mass ratioon 05-21-2021 Albumin/Globulin [Mass ratio] 1.0 {ratio} 0.9-2.[address] [facility] Work Phone: Serum or plasma calcium luciana urement (mass/volume)on 05-21-2021 Calcium [Mass/Vol] 8.2 mg/dL 8.5-10.1 [facility] Work Phone: Serum or plasma creatinine m easurement (mass/volume)on 05-21-2021 Creatinine [Mass/Vol] 1.18 mg/dL 0.70-1.30 [facility] Work Phone: Comment on above: The validity of the calculated GFR & GFRAA in patients over 70 years has not been determined. Clinical correlation is essential. Serum or plasma urea nitroge n measurement (mass/volume)on 05-21-2021 Urea nitrogen [Mass/Vol] 10 mg/dL 7-[address] [facility] Work Phone: [phone] Thin prep Papanicolaou smear with manual screeningon 05-21-2021 Thin prep Papanicolaou smear with manual screening 18 U/L 15-[address] [facility] Work Phone: [phone] Thin prep Papanicolaou smear with manual screening 10 5-[address] [facility] Work Phone: [phone] Urine phencyclidine (PCP) de tectionon 05-21-2021 Phencyclidine Ql (U) Negative [facility] Work Phone: Absolute lymphocyte counton 05-05-2021 Lymphocytes Auto (Unsp spec) [#/Vol] 1.28 10*3/uL 0.83-4.[address] [facility] Work Phone: Basophil percentageon 2021 Basophils/100 WBC (Bld) 0.9 % 0-1 [facility] Work Phone: Chloride [Moles/Vol] 106 mmol/L 98-107 [facility] Work Phone: Eosinophils/100 WBC (Bld) 2.5 % 0-[address] [facility] Work Phone: Glucose [Mass/Vol] 96 mg/dL 74-106 [facility] Work Phone: Neutrophils (Bld) [#/Vol] 4.7 10*3/uL 2.0-7.[address] [facility] Work Phone: Neutrophils/100 WBC (Bld) 68.2 % 47-[address] [facility] Work Phone: Potassium [Moles/Vol] 3.7 mmol/L 3.5-5.1 [facility] Work Phone: Sodium [Moles/Vol] 139 mmol/L 136-145 [facility] Work Phone: WBC (Bld) [#/Vol] 6.9 10*3/uL 4.4-11.0 [facility] Work Phone: Blood erythrocytes count (nu mber/volume)on 05-05-2021 RBC (Bld) [#/Vol] 3.88 10*6/uL 4.6-6.2 [facility] Work Phone: Blood hemoglobin measurement (mass/volume)on 05-05-2021 Hemoglobin (Bld) [Mass/Vol] 12.4 g/dL 13.0-16.[address] [facility] Work Phone: Blood lymphocytes/100 leukoc yteson 05-05-2021 Lymphocytes/100 WBC (Bld) 18.6 % 19-[address] [facility] Work Phone: Blood monocytes/100 leukocyt eson 05-05-2021 Monocytes/100 WBC (Bld) 9.5 % 0-10 [facility] Work Phone: [phone] Blood platelet mean volumeon 05-05-2021 Platelet mean volume (Bld) [Entitic vol] 11.0 fL 6.2-12.[address] [facility] Work Phone: [phone] Determination of erythrocyte mean corpuscular volume (MCV)on 05-05-2021 MCV (RBC) [Entitic vol] 93.6 fL 80-94 [facility] Work Phone: [phone] Glucose Glucometer (BldC) [M ass/Vol]on 05-05-2021 Glucose [Mass/Vol] 183 mg/dL 74-106 [facility] Work Phone: Comment on above: MANAGEMENT OF PATIEN T CARE PER NURSING PROTOCOL Hematocrit Auto (Bld) [Volum e fraction]on 05-05-2021 Hematocrit (Bld) [Volume fraction] 36.3 % 40-[address] [facility] Work Phone: Laboratory - Chemistry and C hemistry - challengeon 05-05-2021 CO2 [Moles/Vol] 29.0 mmol/L 21.0-32.[address] [facility] Work Phone: [phone] Urea nitrogen/Creatinine [Mass ratio] 6.7 mg/mg 10-[address] [facility] Work Phone: [phone] Laboratory - Hematology and Cell countson 05-05-2021 Erythrocyte distribution width (RBC) [Entitic vol] 47.8 fL 35.1-43.[address] [facility] Work Phone: [phone] Erythrocyte distribution width (RBC) [Ratio] 13.9 % 11.6-14.[address] [facility] Work Phone: [phone] Immature granulocytes/100 WBC (Bld) 0.300 % 0.0-0.[address] [facility] Work Phone: [phone] Comment on above: IG% - Immature Granu locytes (promyelocytes, myelocytes and metamyelocytes) > 1% indicates that a LEFT SHIFT is Present. MCH (RBC) [Entitic mass] 32.0 pg 27.0-32.[address] [facility] Work Phone: [phone] Nucleated RBC/100 WBC (Bld) [Ratio] 0 % 0-[address] [facility] Work Phone: [phone] MCHC Auto (RBC) [Mass/Vol]on 05-05-2021 MCHC (RBC) [Mass/Vol] 34.2 g/dL 32-36 [facility] Work Phone: [phone] No Panel Informationon 05-05 Estimated Creatinine Clearance Calc 79.39 ml/min [facility] Work Phone: [phone] Estimated GFR (MDRD) Amer 94 mL/min >[address] [facility] Work Phone: [phone] Comment on above: GFR Calc Estimated GFR (MDRD) Non-Af Amer 78 mL/min >[address] [facility] Work Phone: [phone] Comment on above: Non- GFR Calc Platelets bldon 05-05-2021 Platelets (Bld) [#/Vol] 192 10*3/uL 150-[address] [facility] Work Phone: [phone] Serum or plasma calcium luciana urement (mass/volume)on 05-05-2021 Calcium [Mass/Vol] 8.1 mg/dL 8.5-10.1 [facility] Work Phone: [phone] Serum or plasma creatinine m easurement (mass/volume)on 05-05-2021 Creatinine [Mass/Vol] 1.04 mg/dL 0.70-1.30 [facility] Work Phone: [phone] Comment on above: The validity of the calculated GFR & GFRAA in patients over 70 years has not been determined. Clinical correlation is essential. Serum or plasma urea nitroge n measurement (mass/volume)on 05-05-2021 Urea nitrogen [Mass/Vol] 7 mg/dL 7-[address] [facility] Work Phone: Thin prep Papanicolaou smear with manual screeningon 05-05-2021 Thin prep Papanicolaou smear with manual screening 4 5-[address] [facility] Work Phone: [phone] Absolute lymphocyte counton 05-04-2021 Lymphocytes Auto (Unsp spec) [#/Vol] 0.91 10*3/uL 0.83-4.[address] [facility] Work Phone: Basophil percentageon 2021 Basophils/100 WBC (Bld) 0.7 % 0-1 [facility] Work Phone: Chloride [Moles/Vol] 100 mmol/L 98-107 [facility] Work Phone: Eosinophils/100 WBC (Bld) 0.7 % 0-[address] [facility] Work Phone: Glucose [Mass/Vol] 122 mg/dL 74-106 [facility] Work Phone: Comment on above: Fasting Glucose resu lt from 100 to 125 mg/dL suggests IMPAIRED HOMEOSTASIS per A.D.A. criteria. Neutrophils (Bld) [#/Vol] 8.5 10*3/uL 2.0-7.[address] [facility] Work Phone: Neutrophils/100 WBC (Bld) 81.1 % 47-[address] [facility] Work Phone: [phone] Potassium [Moles/Vol] 2.9 mmol/L 3.5-5.1 [facility] Work Phone: [phone] Sodium [Moles/Vol] 139 mmol/L 136-145 [facility] Work Phone: [phone] WBC (Bld) [#/Vol] 10.5 10*3/uL 4.4-11.0 [facility] Work Phone: Blood erythrocytes count (nu mber/volume)on 05-04-2021 RBC (Bld) [#/Vol] 4.37 10*6/uL 4.6-6.2 [facility] Work Phone: Blood hemoglobin measurement (mass/volume)on 05-04-2021 Hemoglobin (Bld) [Mass/Vol] 14.1 g/dL 13.0-16.[address] [facility] Work Phone: Blood lymphocytes/100 leukoc yteson 05-04-2021 Lymphocytes/100 WBC (Bld) 8.7 % 19-[address] [facility] Work Phone: Blood monocytes/100 leukocyt eson 05-04-2021 Monocytes/100 WBC (Bld) 8.4 % 0-10 [facility] Work Phone: Blood platelet mean volumeon 05-04-2021 Platelet mean volume (Bld) [Entitic vol] 11.4 fL 6.2-12.[address] [facility] Work Phone: Determination of erythrocyte mean corpuscular volume (MCV)on 05-04-2021 MCV (RBC) [Entitic vol] 96.1 fL 80-94 [facility] Work Phone: Hematocrit Auto (Bld) [Volum e fraction]on 05-04-2021 Hematocrit (Bld) [Volume fraction] 42.0 % 40-[address] [facility] Work Phone: Laboratory - Chemistry and C hemistry - challengeon 05-04-2021 Magnesium [Mass/Vol] 1.7 mg/dL 1.6-2.6 [facility] Work Phone: CO2 [Moles/Vol] 32.0 mmol/L 21.0-32.[address] [facility] Work Phone: Urea nitrogen/Creatinine [Mass ratio] 4.8 mg/mg 10-[address] [facility] Work Phone: Laboratory - Hematology and Cell countson 05-04-2021 Erythrocyte distribution width (RBC) [Entitic vol] 49.2 fL 35.1-43.[address] [facility] Work Phone: Erythrocyte distribution width (RBC) [Ratio] 14.0 % 11.6-14.[address] [facility] Work Phone: Immature granulocytes/100 WBC (Bld) 0.400 % 0.0-0.[address] [facility] Work Phone: Comment on above: IG% - Immature Granu locytes (promyelocytes, myelocytes and metamyelocytes) > 1% indicates that a LEFT SHIFT is Present. MCH (RBC) [Entitic mass] 32.3 pg 27.0-32.[address] [facility] Work Phone: Nucleated RBC/100 WBC (Bld) [Ratio] 0 % 0-[address] [facility] Work Phone: MCHC Auto (RBC) [Mass/Vol]on 05-04-2021 MCHC (RBC) [Mass/Vol] 33.6 g/dL 32-36 [facility] Work Phone: No Panel Informationon 05-04 Troponin I High Sensitivity 38 pg/mL 3.0-78.[address] [facility] Work Phone: Comment on above: Please Note: New Kelly t Units and Gender Specific Reference Ranges. For more information see Policy Stat Procedure Media High Sensitivity Troponin (TNIH) and attachments. Estimated Creatinine Clearance Calc 68.19 ml/min [facility] Work Phone: Estimated GFR (MDRD) Amer 76 mL/min >[address] [facility] Work Phone: Comment on above: GFR Calc Estimated GFR (MDRD) Non-Af Amer 63 mL/min >[address] [facility] Work Phone: Comment on above: Non- GFR Calc Troponin I High Sensitivity 42 pg/mL 3.0-78.[address] [facility] Work Phone: Comment on above: Please Note: New Kelly t Units and Gender Specific Reference Ranges. For more information see Policy Stat Procedure Media High Sensitivity Troponin (TNIH) and attachments. Platelets bldon 05-04-2021 Platelets (Bld) [#/Vol] 240 10*3/uL 150-[address] [facility] Work Phone: Serum or plasma calcium luciana urement (mass/volume)on 05-04-2021 Calcium [Mass/Vol] 8.8 mg/dL 8.5-10.1 [facility] Work Phone: Serum or plasma creatinine m easurement (mass/volume)on 05-04-2021 Creatinine [Mass/Vol] 1.25 mg/dL 0.70-1.30 [facility] Work Phone: Comment on above: The validity of the calculated GFR & GFRAA in patients over 70 years has not been determined. Clinical correlation is essential. Serum or plasma urea nitroge n measurement (mass/volume)on 05-04-2021 Urea nitrogen [Mass/Vol] 6 mg/dL 7-[address] [facility] Work Phone: Thin prep Papanicolaou smear with manual screeningon 05-04-2021 Thin prep Papanicolaou smear with manual screening 7 5-[address] [facility] Work Phone: LABORATORYOrdered By: Mercedes Chun on 05-02-2021 Blood Glucose Interventions Notify physician (05/02/21 3:24 PM) [facility] Work Phone: Blood Glucose Testing Reason Routine (05/02/21 3:24 PM) [facility] Work Phone: Glucose [Mass/Vol] 231 mg/dL Invalid Interpretation Code 70 - 110 mg/dL [facility] Work Phone: Blood Glucose Testing Reason Routine (05/02/21 2:40 PM) [facility] Work Phone: Glucose [Mass/Vol] 75 mg/dL Invalid Interpretation Code 70 - 110 mg/dL [facility] Work Phone: Time of Stated Blood Glucose [phone] [facility] Work Phone: Blood Glucose Interventions Notify physician (05/02/21 1:40 PM) [facility] Work Phone: Blood Glucose Testing Reason Routine (05/02/21 1:40 PM) [facility] Work Phone: Glucose [Mass/Vol] 355 mg/dL Invalid Interpretation Code 70 - 110 mg/dL [facility] Work Phone: LABORATORYOrdered By: Rodrigo Tobar on [...] blood sugar, Notify physician (05/02/21 2:40 PM) [facility] Work Phone: LABORATORYOrdered By: Ade Marion on [...] EMERGENCY REPORTon 8 EMERGENCY REPORT [facility] EMERGENCY ROOM REPORT NAME ACCOUNT SEX AGE ADMIT DISCHARGE PT MED. RECORD# NUMBER DATE DATE TYPE ANEESH [id number] Yris 57 11/09/17 3 KIMBERLY [id number] ROOM: ER DATE OF : 1960 DICTATING [...] has also had heart disease with previous MA. Apparently, he does have a pacemaker in [...] Dr. Brock, who will arrange transfer to [place]. Dictated By: Bandar Daigle MD 11/09/17 15:22 JOB #: [id number] Transcribed By: am 11/09/17 15:30 Electronically signed by: YO Daigle M.D. 11/17/17 07:38 Page 2 of 2 KIMBERLY MELENDREZ Emergency Room Report Normal [facility] ALCOHOL-BLOOD MEDICALon 10-0 Ethanol mass conc 212 mg/dL High 0 - 50 [facility] Comment on above: Performed By: #### 2 53229 ####[facility],[address] [place] [address] 27261 CBCon 11-09-2017 Basophils Auto #/vol (Bld) 0.20 x10EE3/UL High 0.00 - 0.10 [facility] Comment on above: Performed By: #### 2 38386 ####[facility],[address] [place] [address] 88546 Basophils/100 WBC Auto (Bld) 2.8 % High 0.0 - 2.0 [facility] Comment on above: Performed By: #### 2 20874 ####[facility],[address] [place] [address] 99103 CBC Normal [facility] Comment on above: Result Comment: CBC- COMPLETE BLOOD COUNT Performed By: #### 2 49015 ####[facility],[address] [place] [address] 17055 Eosinophils Auto #/vol (Bld) 0.20 x10EE3/UL Normal 0.00 - 0.50 [facility] Comment on above: Performed By: #### 2 92202 ####[facility],[address] [place] [address] Eosinophils/100 WBC Auto (Bld) 2.6 % Normal 0.0 - 7.0 [facility] Comment on above: Performed By: #### 2 90304 ####[facility],[address] [place] [address] Erythrocyte distribution width Auto Ratio (RBC) 14.5 % Normal 12.0 - 15.6 [facility] Comment on above: Performed By: #### 2 67480 ####[facility],[address] [place] [address] Hematocrit Auto Volume Fraction (Bld) 38.9 % Low 40.0 - 52.0 [facility] Comment on above: Performed By: #### 2 28504 ####[facility],[address] [place] [address] Hemoglobin mass conc (Bld) 13.0 g/dL Normal 13.0 - 17.5 [facility] Comment on above: Performed By: #### 2 16493 ####[facility],[address] [place] [address] Lymphocytes Auto #/vol (Bld) 2.10 x10EE3/UL Normal 0.80 - 2.80 [facility] Comment on above: Performed By: #### 2 52984 ####[facility],[address] [place], [place] [id number] Lymphocytes/100 WBC Auto (Bld) 29.8 % Normal 20.0 - 45.0 [facility] Comment on above: Performed By: #### 2 54831 ####[facility],[address] [place] [address] MANUAL DIFF N/A Normal [facility] Comment on above: Performed By: #### 2 42718 ####[facility],[address] [place], [place] [id number] MCH Auto Entitic mass (RBC) 31 pg Normal 27 - 33 [facility] Comment on above: Performed By: #### 2 90225 ####[place] [address] MCHC Auto mass conc (RBC) 33 X10 3 Normal 32 - 36 [facility] Comment on above: Performed By: #### 2 28073 ####[facility],[address] [place] [address] MCV Auto Entitic volume (RBC) 94 fL Normal 81 - 98 [facility] Comment on above: Performed By: #### 2 17885 ####[place] [address] Monocytes Auto #/vol (Bld) 0.60 x10EE3/UL Normal 0.20 - 1.00 [facility] Comment on above: Performed By: #### 2 21612 ####[facility],[address] [place] [address] MONOS % 8.9 % Normal 0.0 - 10.0 [facility] Comment on above: Performed By: #### 2 55743 ####[facility],[address] [place] [address] Morphology Interp Jose Carlos (Bld) N/A Normal [facility] Comment on above: Result Comment: {CD] Performed By: #### 2 65294 ####[facility],[address] [place] [address] Neutrophils Auto #/vol (Bld) 3.90 x10EE3/UL Normal 1.50 - 7.10 [facility] Comment on above: Performed By: #### 2 55125 ####[facility],[address] [place] [address] Neutrophils/100 WBC Auto (Bld) 55.9 % Normal 46.0 - 76.0 [facility] Comment on above: Performed By: #### 2 67944 ####[place] [address],[place] [address] Platelet mean volume Auto Entitic volume (Bld) 9.2 fL Normal 6.4 - 10.5 [facility] Comment on above: Result Comment: AUTO MATED DIFFERENTIAL Performed By: #### 2 86771 ####[facility],[address] [place] [address] 69594 Platelets Auto #/vol (Bld) 225 x10EE3/UL Normal 150 - 450 [facility] Comment on above: Performed By: #### 2 48193 ####[facility],[address] [place] [address] 24258 RBC Auto #/vol (Bld) 4.15 x 10EE6/UL Low 4.50 - 6.0 0 [facility] Comment on above: Performed By: #### 2 88319 ####[facility],[address] [place] [address] 32752 WBC Auto #/vol (Bld) 7.0 x 10EE3/UL Normal 4.5 - 10.8 [facility] Comment on above: Performed By: #### 2 62623 ####[facility],[address] [place] [address] 20657 CHEST 1 VIEWon 11-09-2017 CHEST 1 VIEW [place] [address] Patient: KIMBERLY MELENDREZ Phone#: : 1960 Age: 57 Gender: M Pt. Type: ER Account: [id number] Location: 05 Ordering: BANDAR DAIGLE Exam Date: 11/09/2017/12:50 Family Phys: Charge Code: [id number] Physician: [place] Order #: [id number] DLP Dose#: PROCEDURE: X-RAY CHEST 1 VIEW [...] Arevalo MD on 11/09/2017 at 13:07 Normal [facility] CMP with eGFRon 11-09-2017 Age Reported 57 years Normal [facility] Comment on above: Performed By: #### 2 50541 ####[facility],[address] [place] [address] 91355 Albumin mass conc 3.9 g/dL Normal 3.4 - 4.8 [facility] Comment on above: Performed By: #### 2 76061 ####[address] [address] Albumin/Globulin mass ratio 1.4 {ratio} Normal 0.9 - 1.6 [facility] Comment on above: Performed By: #### 2 19088 ####[facility],[address] [place] [address] 62730 ALK PHOS 113 U/L Normal 38 - 126 [facility] Comment on above: Performed By: #### 2 68968 ####[address] [address] ALT/SGPT 66 U/L High 10 - 40 [facility] Comment on above: Performed By: #### 2 15806 ####[facility],[address] [place] [address] 51185 Anion gap 3 molar conc 11 mmol/L Normal 10 - 20 [facility] Comment on above: Performed By: #### 2 80993 ####[facility],[address] [place] [address] 27365 AST/SGOT 41 U/L High 13 - 39 [facility] Comment on above: Performed By: #### 2 50207 ####[facility],[address] [place] [address] 38153 B/C RATIO 15 ratio Normal 0 - 30 [facility] Comment on above: Performed By: #### 2 72065 ####[facility],[address] [place] [address] 56165 Bilirubin mass conc 0.3 mg/dL Normal 0.0 - 1.5 [facility] Comment on above: Performed By: #### 2 64375 ####[facility],[address] [place] [address] 72074 Calcium mass conc 8.6 mg/dL Normal 8.6 - 10.2 [facility] Comment on above: Performed By: #### 2 23699 ####[facility],[address] [place] [address] 28435 Chloride molar conc 100 mmol/L Normal 98 - 107 [facility] Comment on above: Performed By: #### 2 31996 ####[facility],[address] [place] [address] 04581 CO2 molar conc 26.3 mmol/L Normal 21.0 - 31.0 [facility] Comment on above: Performed By: #### 2 39207 ####[facility],[address] [place] [address] 30182 Creatinine mass conc 1.1 mg/dL Normal 0.7 - 1.3 [facility] Comment on above: Performed By: #### 2 02413 ####[facility],[address] [place] [address] 96715 GFR/1.73 sq M predicted among non-blacks MDRD vol rate/area (S/P/Bld) mL/min/{1.73_m2} Normal 60 - 999 [facility] Comment on above: Performed By: #### 2 35365 ####[facility],[address] [place] [address] 93417 Result Comment: ACCO RDING TO THE NATIONAL KIDNEY DISEASE EDUCATION PROGRAM(NKDE), A NORMAL eGFRIS A VALUE GREATER THAN OR EQUAL TO 60 ML/MIN/1.73 SQ METERS.CHRONIC KIDNEY DISEASE: <60mL/MIN/1.73 SQ METERSKIDNEY FAILURE: <15mL/MIN/1.73 SQ METERSTHIS TEST SHOULD ONLY BE USED FOR PATIENTS 18 YEARS OF AGE AND OLDER. GFR/1.73 sq M predicted among non-blacks MDRD vol rate/area (S/P/Bld) Normal [facility] Comment on above: Result Comment: COMP REHENSIVE METABOLIC PANEL Performed By: #### 2 80726 ####[address] [address] Globulin Calculated mass conc (S) 2.7 g/dL Normal 1.5 - 3.8 [facility] Comment on above: Performed By: #### 2 34343 ####[address] [address] Glucose mass conc 600 mg/dL Critically high 74 - 106 [facility] Comment on above: Result Comment: { CA LLED TO Bernadette/1330{ READ BACK BY [id number]/h/lm Performed By: #### 2 58319 ####[address] [address] Potassium molar conc 4.1 mmol/L Normal 3.5 - 5.1 [facility] Comment on above: Performed By: #### 2 43798 ####[address] [address] Protein mass conc 6.6 g/dL Normal 6.4 - 8.3 [facility] Comment on above: Performed By: #### 2 15345 ####[address] [address] Sodium molar conc 133 mmol/L Low 136 - 145 [facility] Comment on above: Performed By: #### 2 24816 ####[address] [address] Urea nitrogen mass conc 17 mg/dL Normal 6 - 20 [facility] Comment on above: Performed By: #### 2 64539 ####[facility],[address] [place] [address] 10045 DRUG SCREEN URINE MEDICon AMPHETAMINES Negative Normal [facility] Comment on above: Performed By: #### 2 12682 ####[facility],[address] [place] [address] 57524 B-DIAZEPINES Negative Normal [facility] Comment on above: Performed By: #### 2 15173 ####[facility],[address] [place] [address] 25033 BARBITURATES Negative [facility] Comment on above: Performed By: #### 2 52765 ####[facility],[address] [place] [address] 61612 COCAINE Negative [facility] Comment on above: Performed By: #### 2 30915 ####[facility],[address] [place] [address] 91770 DRUG SCREEN URINE MEDIC Normal [facility] Comment on above: Result Comment: DRUG SCREEN - URINE Performed By: #### 2 70692 ####[facility],[address] [place] [address] 30392 METHADONE Negative [facility] Comment on above: Performed By: #### 2 62106 ####[facility],[address] [place] [address] 57033 OPIATES Negative [facility] Comment on above: Performed By: #### 2 81328 ####[facility],[address] [place] [address] 55500 PCP Negative [facility] Comment on above: Performed By: #### 2 81898 ####[facility],[address] [place] [address] 11539 TCA Negative [facility] Comment on above: Performed By: #### 2 02873 ####[facility],[address] [place] [address] THC Negative Normal [facility] Comment on above: Result Comment: CHARLEY ENTS RECEIVING PROTON PUMP INHIBITORS MAY DEMONSTRATE FALSE POSITIVETHC/CANNABINOID RESULTS. AN ALTERNATIVE CONFIRMATORY METHOD SHOULD BE CONSIDEREDTO VERIFY POSITIVE RESULTS. Performed By: #### 2 21417 ####[facility],[address] [place] [address] HGB A1Con 11-09-2017 Hemoglobin A1c/Hemoglobin.total mass fraction (Bld) 12.0 % High 4.4 - 6.4 [facility] Comment on above: Result Comment: {HB] {A1] Performed By: #### 2 21129 ####[facility],[address] [place] [address] HISTORY AND PHYSICALon 11-09 HISTORY AND PHYSICAL [facility] HISTORY & PHYSICAL NAME ACCOUNT SEX AGE ADMIT DISCHARGE PT MED. RECORD# NUMBER DATE DATE TYPE ANEESH [id number] Yris 57 11/09/17 3 KIMBERLY [id number] ROOM: ER DATE OF : 64 DICTATING PHYSICIAN: Kye Brock The patient is seen in the emergency department at [facility] on November 09 and is transferred to [facility]. CHIEF COMPLAINT: Intoxication. HISTORY OF PRESENT [...] Crisis Center. He is being sent to [facility] for further treatment and alcohol withdrawal [...] proper withdraw policy. I will transfer to [facility] to my service where we may apply the [facility] Withdrawal Assessment protocol and properly detoxify him. Once he is no longer under the influence, Crisis will be asked to see him at that time. It would not be inappropriate to call them in with his present state. Dictated By: Kye Brock MD 11/09/17 16:19 JOB #: [id number] Transcribed By: jessica 11/09/17 16:51 Electronically signed by: Al Brock M.D. 11/09/17 20:19 Update to H&P: [ ] No changes: I have examined the patient and reviewed the H&P and there are no changes. [ ] As previously dictated with the following changes: PHYSICIAN SIGNATURE: __ TIME: DATE: Page 2 of 3 KIMBERLY MELENDREZ History & Physical Normal [facility] KETONE, BLOOD, QUALon 2017 KETONES Negative Normal ORIN - NEGATIVE [facility] Comment on above: Result Comment: SPEC IMEN SERUM Performed By: #### 2 89565 ####[facility],[address] [place], [place] [id number] LACTATEon 11-09-2017 Lactate molar conc 14.5 mg/dL Normal 4.5 - 18.0 [facility] Comment on above: Performed By: #### 2 03406 ####[facility],[address] [place] [address] 75437 Lactate molar conc 18.5 mg/dL High 4.5 - 18.0 [facility] Comment on above: Performed By: #### 2 96230 ####[facility],[address] [place], [place] [id number] TROPONINon 11-09-2017 Troponin I.cardiac mass conc 0.01 ng/mL Normal 0.00 - 0.05 [facility] Comment on above: Result Comment: Elev [...] as heterophile antibodies). Performed By: #### 2 30925 ####[place] [address] Troponin I.cardiac mass conc 0.01 ng/mL Normal 0.00 - 0.05 [facility] Comment on above: Result Comment: Elev [...] as heterophile antibodies). Performed By: #### 2 36279 ####[place] [address] URINALYSISon 11-09-2017 Bilirubin Negative Normal NORMAL: NEGATIVE [facility] Comment on above: Performed By: #### 2 74337 ####[place] [address] Blood Negative Normal NORMAL: NEGATIVE [facility] Comment on above: Performed By: #### 2 95024 ####[facility],[address] [place] [address] Clarity clear Normal NORMAL: CLEAR [facility] Comment on above: Performed By: #### 2 31040 ####[place] [address] Color p.yel Normal NORMAL: YELLOW [facility] Comment on above: Performed By: #### 2 01963 ####[place] [address] Glucose 1000 Abnormal NORMAL: NORMAL [facility] Comment on above: Performed By: #### 2 84335 ####[place] [address] Ketone Negative Normal NORMAL: NEGATIVE [facility] Comment on above: Performed By: #### 2 91453 ####[facility],[address] [place] [address],[facility] [address] Leukocytes Negative Normal NORMAL: NEGATIVE [facility] Comment on above: Performed By: #### 2 68895 ####[facility],[address] [place] [address] 13600 Microscopic NOT INDICATED Normal [facility] Comment on above: Performed By: #### 2 05315 ####[facility],[address] [place] [address] 99436 Nitrite Negative Normal NORMAL: NEGATIVE [facility] Comment on above: Performed By: #### 2 94328 ####[facility],[address] [place] [address] 91639 ph 6 Normal NORMAL: 5.0-8.0 [facility] Comment on above: Performed By: #### 2 27387 ####[facility],[address] [place] [address] 65959 Protein mass conc Negative Normal NORMAL: NEGATIVE [facility] [facility] Comment on above: Performed By: #### 2 [id number] ####[facility],[address] [place] [address] [place] 1.010 Normal NORMAL: 1.010-1.030 [facility] Comment on above: Performed By: #### 2 [id number] ####[facility],[address] [place] [address]1978 Specimen type UNSPECIFIED Normal [facility] Comment on above: Performed By: #### 2 [id number] ####[facility],[address] [place] [address] Urobilinog NORM Normal NORMAL: NORMAL [facility] Comment on above: Performed By: #### 2 [id number] ####[facility],[address] [place] [address] Vital Signs Date Time Vital Sign Value Performing Clinician Facility 10-24-2024 20:24-0400 SaO2% (BldA) [Mass fraction] 99 % VANDANALORELEI EDWARDS [facility] Comment on above: Order Comment: Specimen Type: ARTERIAL B LOOD SPECIMENOrdering Facility: [facility] Address: [address] [place], [place] [id number] Performed By: #### A LLBG ####[facility] LABCLIA [id number] [address] [address] [facility] 10-24-2024 10:16-0400 SaO2% (BldA) [Mass fraction] 98 % VANDANALORELEI EDWARDS [facility] Comment on above: Order Comment: Specimen Type: ARTERIAL B LOOD SPECIMENOrdering Facility: [facility] Address: [address] [place], [place] [address] Performed By: #### A LLBG ####[facility] LABIA [id number] [place] [id number] [facility] 10-24-2024 08:17-0400 SaO2% (BldA) [Mass fraction] 97 % VANDANALORELEI EDWARDS [facility] Comment on above: Order Comment: Specimen Type: ARTERIAL B LOOD SPECIMENOrdering Facility: [facility] Address: [address] [place], [place] [address] Performed By: #### A LLBG ####[facility] LABIA [id number] [address] [address] [facility] 10-23-2024 16:00-0400 SaO2% (BldA) [Mass fraction] 99 % VANDANA EDWARDS [facility] Comment on above: Order Comment: Specimen Type: ARTERIAL B LOOD SPECIMENOrdering Facility: [facility] Address: [address] [place], [place] [address] Performed By: #### A LLBG ####[facility] LABIA [id number] [address] [address] [place] 10-23-2024 14:01-0400 SaO2% (BldA) [Mass fraction] 97 % VANDANA ANDREW [facility] Comment on above: Order Comment: Specimen Type: ARTERIAL B LOOD SPECIMENOrdering Facility: [facility] Address: [address] [place], [place] [address] Performed By: #### A LLMG ####[facility] LABCLIA [id number] [address] [address] [place] 10-23-2024 11:24-0400 SaO2% (BldA) [Mass fraction] 95 % VANDANA EDWARDS [facility] Comment on above: Order Comment: Specimen Type: ARTERIAL B LOOD SPECIMENOrdering Facility: [facility] Address: [address] [place], [place] [address] Performed By: #### A LLBG ####[facility] LABIA [id number] [place] [id number] [place] 10-23-2024 07:54-0400 SaO2% (BldA) [Mass fraction] 99 % VANDANA EDWARDS [facility] Comment on above: Order Comment: Specimen Type: ARTERIAL B LOOD SPECIMENOrdering Facility: [facility] Address: [address] [place], [place] [address] Performed By: #### A LLBG ####[facility] LABIA [id number] [address] [address] [place] 10-23-2024 00:32-0400 SaO2% (BldA) [Mass fraction] 98 % VANDANA EDWARDS [facility] Comment on above: Order Comment: Specimen Type: ARTERIAL B LOOD SPECIMENOrdering Facility: [facility] Address: [address] [place], [place] [address] Performed By: #### A LLBG ####[facility] LABIA [id number] [address] [address] [place] 10-22-2024 08:41-0400 SaO2% (BldA) [Mass fraction] 97 % VANDANA EDWARDS [facility] Comment on above: Order Comment: Specimen Type: ARTERIAL B LOOD SPECIMENOrdering Facility: [facility] Address: [address] [place], [place] [address] Performed By: #### A LLBG ####[facility] LABIA [id number] [place] [id number] [place] 10-22-2024 00:45-0400 SaO2% (BldA) [Mass fraction] 95 % VANDANA EDWARDS [facility] Comment on above: Order Comment: Specimen Type: ARTERIAL B LOOD SPECIMENOrdering Facility: [facility] Address: [address] [place], [place] [address] Performed By: #### A LLBG ####[facility] [id number] [place] [id number] [place] 10-21-2024 11:32-0400 SaO2% (BldA) [Mass fraction] 94 % VANDANA EDWARDS [facility] Comment on above: Order Comment: Specimen Type: ARTERIAL B LOOD SPECIMENOrdering Facility: [facility] Address: [address] [place], [place] [address] Performed By: #### A LLBG ####[facility] [id number] [place] [id number] [place] 10-21-2024 07:48-0400 SaO2% (BldA) [Mass fraction] 97 % VANDANA EDWARDS [facility] Comment on above: Order Comment: Specimen Type: ARTERIAL B LOOD SPECIMENOrdering Facility: [facility] Address: [address] [place], [place] [address] Performed By: #### A LLBG ####[facility] LABIA [id number] [address] [address] [place] 10-21-2024 05:48-0400 SaO2% (BldA) [Mass fraction] 98 % VANDANA EDWARDS [facility] Comment on above: Order Comment: Specimen Type: ARTERIAL B LOOD SPECIMENOrdering Facility: [facility] Address: [address] [place], [place] [address] Performed By: #### A LLBG ####[facility] LABIA [id number] [place] [id number] [facility] 10-21-2024 00:14-0400 SaO2% (BldA) [Mass fraction] 100 % VANDANA EDWARDS [facility] Comment on above: Order Comment: Specimen Type: ARTERIAL B LOOD SPECIMENOrdering Facility: [facility] Address: [address] [place], [place] [address] Performed By: #### A LLBG ####[facility] [id number] [place] [id number] [facility] 10-20-2024 19:42-0400 SaO2% (BldA) [Mass fraction] 98 % VANDANALORELEI EDWARDS [facility] Comment on above: Order Comment: Specimen Type: ARTERIAL B LOOD SPECIMENOrdering Facility: [facility] Address: [address] [place], [place] [address] Performed By: #### A LLBG ####[facility] [id number] [place] [id number] [facility] 10-20-2024 16:11-0400 SaO2% (BldA) [Mass fraction] 99 % VANDANALORELEI EDWARDS [facility] Comment on above: Order Comment: Specimen Type: ARTERIAL B LOOD SPECIMENOrdering Facility: [facility] Address: [address] [place], [place] [address] Performed By: #### A LLBG ####[facility] [id number] [address] [address] [facility] 10-20-2024 11:08-0400 SaO2% (BldA) [Mass fraction] 98 % VANDANA ANDREW [facility] Comment on above: Order Comment: Specimen Type: ARTERIAL B LOOD SPECIMENOrdering Facility: [facility] Address: [address] [place], [place] [address] Performed By: #### A LLBG ####[facility] LABIA [id number] [address] [address] [facility] 10-20-2024 08:11-0400 SaO2% (BldA) [Mass fraction] 98 % VANDANA EDWARDS [facility] Comment on above: Order Comment: Specimen Type: ARTERIAL B LOOD SPECIMENOrdering Facility: [facility] Address: [address] [place], [place] [address] Performed By: #### A LLBG ####[facility] LABIA [id number] [place] [id number] [facility] 10-20-2024 00:03-0400 SaO2% (BldA) [Mass fraction] 99 % VANDANA EDWARDS [facility] Comment on above: Order Comment: Specimen Type: ARTERIAL B LOOD SPECIMENOrdering Facility: [facility] Address: [address] [place] [address] Performed By: #### A LLBG ####[facility] [id number] [place] [id number] [facility] 10-19-2024 19:57-0400 SaO2% (BldA) [Mass fraction] 99 % VANDANA EDWARDS [facility] Comment on above: Order Comment: Specimen Type: ARTERIAL B LOOD SPECIMENOrdering Facility: [facility] Address: [address] [place], [place] [address] Performed By: #### A LLBG ####[facility] LABIA [id number] [address] [address] [facility] 10-19-2024 07:48-0400 SaO2% (BldA) [Mass fraction] 96 % VANDANA EDWARDS [facility] Comment on above: Order Comment: Specimen Type: ARTERIAL B LOOD SPECIMENOrdering Facility: [facility] Address: [address] [place], [place] [address] Performed By: #### A LLBG ####[facility] LABCLIA [id number] [address] [address] [place] 10-12-2024 15:58-0400 Heart rate 109 /min Dr. Rolan Romero DO Work Phone: [facility] 10-12-2024 15:58-0400 Inhaled oxygen flow rate 3 L/min Dr. Rolan Romero DO Work Phone: [facility] 10-12-2024 15:58-0400 Respiratory rate 26 /min Dr. Rolan Romero DO Work Phone: 8(895)844-948973 [place] [address] 10-12-2024 15:58-0400 SaO2% (BldA) [Mass fraction] 97 % Dr. Rolan Romero DO Work Phone: 0(777)182-962673 [place] [address] 10-12-2024 15:51-0400 Body temperature 98.9 [degF] Dr. Rolan Romero DO Work Phone: 7(122)973-830273 [place] [address] 10-12-2024 15:51-0400 Diastolic blood pressure 94 mm[Hg] Dr. Rolan Romero DO Work Phone: [facility] 10-12-2024 15:51-0400 Systolic blood pressure 124 mm[Hg] Dr. Rolan Romero DO Work Phone: [facility] 10-12-2024 09:49-0400 Body height 177.[address] Rolan Romero DO Work Phone: [facility] 10-12-2024 09:49-0400 Body mass index (BMI) [Ratio] 21.8 kg/m2 Dr. Rolan Romero DO Work Phone: [facility] 10-12-2024 09:49-0400 Body weight [address] Rolan Romero DO Work Phone: 2(959)755-042073 [place] [address] 10-10-2024 11:34-0400 Body mass index (BMI) [Ratio] 20.7 kg/m2 Dr. Rolan Romero DO Work Phone: 3(475)119-024375 [place] [address] 10-10-2024 11:34-0400 Body weight 65.[address] Rolan Romero DO Work Phone: 4(487)276-963875 [place] [address] 10-10-2024 11:34-0400 Diastolic blood pressure 87 mm[Hg] Dr. Rolan Romero DO Work Phone: 0(333)154-662075 [place] [address] 10-10-2024 11:34-0400 Heart rate 104 /min Dr. Rolan Romero DO Work Phone: 2(610)369-649275 [place] [address] 10-10-2024 11:34-0400 Respiratory rate 18 /min Dr. Rolan Romero DO Work Phone: 8(727)125-725175 [place] [address] 10-10-2024 11:34-0400 SaO2% (BldA) [Mass fraction] 94 % Dr. Rolan Romero DO Work Phone: 8(599)831-323075 [place] [address] 10-10-2024 11:34-0400 Systolic blood pressure 155 mm[Hg] Dr. Rolan Romero DO Work Phone: 3(868)474-292275 [place] [address] 10-06-2024 15:09-0400 Body temperature 96.7 [degF] Dr. Rolan Romero DO Work Phone: 9(048)808-182373 [place] [address] 10-06-2024 15:09-0400 Diastolic blood pressure 111 mm[Hg] Dr. Rolan Romero DO Work Phone: 9(971)582-003773 [place] [address] 10-06-2024 15:09-0400 Heart rate 103 /min Dr. Rolan Romero DO Work Phone: 5(548)599-002273 [place] [address] 10-06-2024 15:09-0400 Respiratory rate 20 /min Dr. Rolan Romero DO Work Phone: 7(360)048-287075 [place] [address] 10-06-2024 15:09-0400 SaO2% (BldA) [Mass fraction] 97 % Dr. Rolan Romero DO Work Phone: 6(598)105-415075 [place] [address] 10-06-2024 15:09-0400 Systolic blood pressure 149 mm[Hg] Dr. Rolan Romero DO Work Phone: 6(666)469-124275 [place] [address] 10-06-2024 14:29-0400 Inhaled oxygen concentration 2 % Dr. Rolan Romero DO Work Phone: 6(778)529-433075 [place] [address] 10-06-2024 12:43-0400 Inhaled oxygen flow rate 2 L/min Dr. Rolan Romero DO Work Phone: 1(976)097-278975 [place] [address] 10-06-2024 11:37-0400 Body height 177.[address] Rolan Romero DO Work Phone: 2(785)886-588175 [place] [address] 10-06-2024 11:37-0400 Body mass index (BMI) [Ratio] 22.6 kg/m2 Dr. Rolan Romero DO Work Phone: 1(408)527-783375 [place] [address] 10-06-2024 11:37-0400 Body weight 71.[address] Rolan Romero DO Work Phone: 2(798)963-979375 [place] [address] 09-28-2024 13:41-0400 Body height 177.[address] Rolan Romero DO Work Phone: 6(607)223-589675 [place] [address] 09-28-2024 13:41-0400 Body mass index (BMI) [Ratio] 20.2 kg/m2 Dr. Rolan Romero DO Work Phone: 7(146)294-753375 [place] [address] 09-28-2024 13:41-0400 Body weight 63.[address] Rolan Romero DO Work Phone: 5(670)012-501175 [place] [address] 09-28-2024 13:41-0400 Diastolic blood pressure 98 mm[Hg] Dr. Rolan Romero DO Work Phone: 1(213)264-516473 [place] [address] 09-28-2024 13:41-0400 Heart rate 106 /min Dr. Rolan Romero DO Work Phone: 1(851)557-968373 [place] [address] 09-28-2024 13:41-0400 Respiratory rate 18 /min Dr. Rolan Romero DO Work Phone: 4(883)735-392573 [place] [address] 09-28-2024 13:41-0400 SaO2% (BldA) [Mass fraction] 94 % Dr. Rolan Romero DO Work Phone: 1(584)992-285773 [place] [address] 09-28-2024 13:41-0400 Systolic blood pressure 137 mm[Hg] Dr. Rolan Romero DO Work Phone: 5(068)585-378773 [place] [address] 09-04-2024 15:54-0400 Heart rate 86 /min Dr. Rolan Romero DO Work Phone: 9(273)431-964173 [place] [address] 09-04-2024 15:54-0400 Respiratory rate 17 /min Dr. Rolan Romero DO Work Phone: 2(143)391-098173 [place] [address] 09-04-2024 15:40-0400 Body temperature 97.3 [degF] Dr. Rolan Romero DO Work Phone: 9(923)948-974673 [place] [address] 09-04-2024 15:40-0400 Diastolic blood pressure 88 mm[Hg] Dr. Rolan Romero DO Work Phone: 7(651)380-078473 [place] [address] 09-04-2024 15:40-0400 Inhaled oxygen flow rate 2 L/min Dr. Rolan Romero DO Work Phone: 4(443)165-198473 [place] [address] 09-04-2024 15:40-0400 SaO2% (BldA) [Mass fraction] 95 % Dr. Rolan Romero DO Work Phone: 1(463)802-981173 [place] [address] 09-04-2024 15:40-0400 Systolic blood pressure 118 mm[Hg] Dr. Rolan Romero DO Work Phone: 7(078)160-283573 [place] [address] 09-04-2024 11:18-0400 Body weight 69.[address] Rolan Romero DO Work Phone: 9(932)236-723975 [place] [address] 09-04-2024 03:53-0400 Body mass index (BMI) [Ratio] 21.4 kg/m2 Dr. Rolan Romero DO Work Phone: 5(161)163-483975 [place] [address] 08-30-2024 10:09-0400 Inhaled oxygen concentration 31 % Dr. Rolan Romero DO Work Phone: 8(006)781-249775 [place] [address] 08-29-2024 00:00-0400 Body temperature 97.8 [degF] Dr. Rolan Romero DO Work Phone: 8(616)107-092375 [place] [address] 08-29-2024 00:00-0400 Diastolic blood pressure 99 mm[Hg] Dr. Rolan Romero DO Work Phone: 3(964)959-121973 [place] [address] 08-29-2024 00:00-0400 Heart rate 108 /min Dr. Rolan Romero DO Work Phone: 9(314)287-967873 [place] [address] 08-29-2024 00:00-0400 Respiratory rate 18 /min Dr. Rolan Romero DO Work Phone: 1(340)946-911773 [place] [address] 08-29-2024 00:00-0400 SaO2% (BldA) [Mass fraction] 96 % Dr. Rolan Romero DO Work Phone: 8(648)645-680873 [place] [address] 08-29-2024 00:00-0400 Systolic blood pressure 130 mm[Hg] Dr. Rolan Romero DO Work Phone: 6(597)638-223673 [place] [address] 08-28-2024 21:27-0400 Inhaled oxygen concentration 40 % Dr. Rolan Romero DO Work Phone: [facility] 08-28-2024 21:27-0400 Inhaled oxygen flow rate 8 L/min Dr. Rolan Romero DO Work Phone: [facility] 08-28-2024 17:46-0400 Body height 180.[address] Rolan Romero DO Work Phone: [facility] 08-28-2024 17:46-0400 Body mass index (BMI) [Ratio] 20.4 kg/m2 Dr. Rolan Romero DO Work Phone: [facility] 08-28-2024 17:46-0400 Body weight 66.[address] Rolan Romero DO Work Phone: [facility] 08-03-2024 08:48-0400 Heart rate 86 /min No Primary Care Physician [facility] 08-03-2024 08:46-0400 Body temperature 97.7 [degF] No Primary Care Physician [facility] 08-03-2024 08:46-0400 Diastolic blood pressure 98 mm[Hg] No Primary Care Physician [facility] 08-03-2024 08:46-0400 Respiratory rate 16 /min No Primary Care Physician [facility] 08-03-2024 08:46-0400 SaO2% (BldA) [Mass fraction] 97 % No Primary Care Physician [facility] 08-03-2024 08:46-0400 Systolic blood pressure 127 mm[Hg] No Primary Care Physician [facility] 08-03-2024 05:38-0400 Body mass index (BMI) [Ratio] 20.6 kg/m2 No Primary Care Physician [facility] 08-03-2024 05:38-0400 Body weight 67 kg No Primary Care Physician [facility] 08-02-2024 11:29-0400 Body height 180.34 cm No Primary Care Physician [facility] 08-01-2024 21:00-0400 Body temperature 97.9 [degF] No Primary Care Physician [facility] 08-01-2024 21:00-0400 Diastolic blood pressure 76 mm[Hg] No Primary Care Physician [facility] 08-01-2024 21:00-0400 Heart rate 102 /min No Primary Care Physician [facility] 08-01-2024 21:00-0400 Respiratory rate 18 /min No Primary Care Physician [facility] 08-01-2024 21:00-0400 SaO2% (BldA) [Mass fraction] 99 % No Primary Care Physician [facility] 08-01-2024 21:00-0400 Systolic blood pressure 109 mm[Hg] No Primary Care Physician [facility] 08-01-2024 20:30-0400 Inhaled oxygen flow rate 2 L/min No Primary Care Physician [facility] 08-01-2024 19:38-0400 Body mass index (BMI) [Ratio] 21.7 kg/m2 No Primary Care Physician [facility] 08-01-2024 19:38-0400 Body weight 70.7 kg No Primary Care Physician [facility] 08-01-2024 12:33-0400 Body height 180.34 cm No Primary Care Physician [facility] 07-14-2024 09:45-0400 Heart rate 79 /min No Primary Care Physician [facility] 07-14-2024 07:55-0400 Body temperature 98.7 [degF] No Primary Care Physician [facility] 07-14-2024 07:55-0400 Diastolic blood pressure 84 mm[Hg] No Primary Care Physician [facility] 07-14-2024 07:55-0400 Respiratory rate 16 /min No Primary Care Physician [facility] 07-14-2024 07:55-0400 SaO2% (BldA) [Mass fraction] 95 % No Primary Care Physician [facility] 07-14-2024 07:55-0400 Systolic blood pressure 122 mm[Hg] No Primary Care Physician [facility] 07-14-2024 03:30-0400 Body mass index (BMI) [Ratio] 20.1 kg/m2 No Primary Care Physician [facility] 07-14-2024 03:30-0400 Body weight 65.6 kg No Primary Care Physician [facility] 07-12-2024 14:49-0400 Body height 180.34 cm No Primary Care Physician [facility] 07-11-2024 15:00-0400 Diastolic blood pressure 98 mm[Hg] No Primary Care Physician [facility] 07-11-2024 15:00-0400 Heart rate 80 /min No Primary Care Physician [facility] 07-11-2024 15:00-0400 Respiratory rate 18 /min No Primary Care Physician [facility] 07-11-2024 15:00-0400 SaO2% (BldA) [Mass fraction] 98 % No Primary Care Physician [facility] 07-11-2024 15:00-0400 Systolic blood pressure 148 mm[Hg] No Primary Care Physician [facility] 07-11-2024 13:51-0400 Body temperature 98.6 [degF] No Primary Care Physician [facility] 07-11-2024 11:28-0400 Body height 180.34 cm No Primary Care Physician [facility] 07-11-2024 11:28-0400 Body mass index (BMI) [Ratio] 20.2 kg/m2 No Primary Care Physician [facility] 07-11-2024 11:28-0400 Body weight 65.81 kg No Primary Care Physician [facility] 07-06-2024 11:41-0400 Body temperature 97.6 [degF] No Primary Care Physician [facility] 07-06-2024 11:41-0400 Diastolic blood pressure 81 mm[Hg] No Primary Care Physician [facility] 07-06-2024 11:41-0400 Heart rate 60 /min No Primary Care Physician [facility] 07-06-2024 11:41-0400 Respiratory rate 16 /min No Primary Care Physician [facility] 07-06-2024 11:41-0400 SaO2% (BldA) [Mass fraction] 93 % No Primary Care Physician [facility] 07-06-2024 11:41-0400 Systolic blood pressure 142 mm[Hg] No Primary Care Physician [facility] 07-06-2024 04:52-0400 Body mass index (BMI) [Ratio] 20.4 kg/m2 No Primary Care Physician [facility] 07-06-2024 04:52-0400 Body weight 66.4 kg No Primary Care Physician [facility] 07-04-2024 14:00-0400 Inhaled oxygen flow rate 2 L/min No Primary Care Physician [facility] 07-04-2024 11:32-0400 Body height 180.34 cm No Primary Care Physician [facility] 06-28-2024 14:10-0400 Body temperature 98 [degF] No Primary Care Physician [facility] 06-28-2024 14:10-0400 Diastolic blood pressure 75 mm[Hg] No Primary Care Physician [facility] 06-28-2024 14:10-0400 Heart rate 82 /min No Primary Care Physician [facility] 06-28-2024 14:10-0400 Respiratory rate 18 /min No Primary Care Physician [facility] 06-28-2024 14:10-0400 SaO2% (BldA) [Mass fraction] 97 % No Primary Care Physician [facility] 06-28-2024 14:10-0400 Systolic blood pressure 102 mm[Hg] No Primary Care Physician [facility] 06-28-2024 11:20-0400 Body height 180.34 cm No Primary Care Physician [facility] 06-28-2024 11:20-0400 Body weight 74.9 kg No Primary Care Physician [facility] 06-28-2024 09:00-0400 Inhaled oxygen flow rate 2 L/min No Primary Care Physician [facility] 06-28-2024 03:35-0400 Body mass index (BMI) [Ratio] 23.1 kg/m2 No Primary Care Physician [facility] 06-25-2024 22:00-0400 Diastolic blood pressure 86 mm[Hg] No Primary Care Physician [facility] 06-25-2024 22:00-0400 Heart rate 118 /min No Primary Care Physician [facility] 06-25-2024 22:00-0400 Respiratory rate 20 /min No Primary Care Physician [facility] 06-25-2024 22:00-0400 SaO2% (BldA) [Mass fraction] 94 % No Primary Care Physician [facility] 06-25-2024 22:00-0400 Systolic blood pressure 138 mm[Hg] No Primary Care Physician [facility] 06-25-2024 21:38-0400 Body temperature 98.5 [degF] No Primary Care Physician [facility] 06-25-2024 16:17-0400 Body height 180.34 cm No Primary Care Physician [facility] 06-25-2024 16:17-0400 Body mass index (BMI) [Ratio] 26.6 kg/m2 No Primary Care Physician [facility] 06-25-2024 16:17-0400 Body weight 86.5 kg No Primary Care Physician [facility] 04-12-2024 09:41-0500 Diastolic blood pressure 110 mm[Hg] Vandana Edwards Work Phone: [facility] 04-12-2024 09:41-0500 Systolic blood pressure 172 mm[Hg] Vandana Edwards Work Phone: [facility] 04-12-2024 09:14-0500 Body mass index (BMI) [Ratio] 20.08 kg/m2 Vandana Edwards Work Phone: [facility] 04-12-2024 09:14-0500 Body temperature 97.11 [degF] Vandana Edwards Work Phone: [facility] 04-12-2024 09:14-0500 Body weight 65.32 kg Vandana Edwards Work Phone: [facility] 04-12-2024 09:14-0500 Heart rate 60 /min Vandana Edwards Work Phone: [facility] 04-12-2024 09:14-0500 SaO2% (BldA) [Mass fraction] 98 % Vandana Edwards Work Phone: [facility] 04-05-2024 13:20-0500 Diastolic blood pressure 75 mm[Hg] Phoebe Vazquez MD Work Phone: [facility] 04-05-2024 13:20-0500 Heart rate 65 /min Phoebe Vazquez MD Work Phone: [facility] 04-05-2024 13:20-0500 Respiratory rate 16 /min Phoebe Vazquez MD Work Phone: [facility] 04-05-2024 13:20-0500 SaO2% (BldA) [Mass fraction] 97 % Phoebe Vazquez MD Work Phone: [facility] 04-05-2024 13:20-0500 Systolic blood pressure 118 mm[Hg] Phoebe Vazquez MD Work Phone: [facility] 04-05-2024 13:00-0500 Body temperature 97 [degF] Phoebe Vazquez MD Work Phone: [facility] 04-05-2024 11:43-0500 Body height 180.3 cm Phoebe Vazquez MD Work Phone: [facility] 04-05-2024 11:43-0500 Body mass index (BMI) [Ratio] 20.22 kg/m2 Phoebe Vazquez MD Work Phone: [facility] 04-05-2024 11:43-0500 Body weight 65.77 kg Phoebe Vazquez MD Work Phone: [facility] 12-27-2023 14:12-0500 Body height 180.3 cm Marianna Queden LOCAL AREA NETWORK ADMINISTRATOR.ACCOUNT SUPPORT ASSOCIATE Work Phone: [facility] 12-27-2023 14:12-0500 Body mass index (BMI) [Ratio] 18.97 kg/m2 Marianna Queden LOCAL AREA NETWORK ADMINISTRATOR.ACCOUNT SUPPORT ASSOCIATE Work Phone: [facility] 12-27-2023 14:12-0500 Body temperature 97.81 [degF] Marianna Queden LOCAL AREA NETWORK ADMINISTRATOR.ACCOUNT SUPPORT ASSOCIATE Work Phone: [facility] 12-27-2023 14:12-0500 Body weight 61.69 kg Marianna Queden LOCAL AREA NETWORK ADMINISTRATOR.ACCOUNT SUPPORT ASSOCIATE Work Phone: [facility] 12-27-2023 14:12-0500 Diastolic blood pressure 70 mm[Hg] Marianna Queden LOCAL AREA NETWORK ADMINISTRATOR.ACCOUNT SUPPORT ASSOCIATE Work Phone: [facility] 12-27-2023 14:12-0500 Heart rate 75 /min Marianna Queden LOCAL AREA NETWORK ADMINISTRATOR.ACCOUNT SUPPORT ASSOCIATE Work Phone: [facility] 12-27-2023 14:12-0500 Respiratory rate 16 /min Marianna Queden LOCAL AREA NETWORK ADMINISTRATOR.ACCOUNT SUPPORT ASSOCIATE Work Phone: [facility] 12-27-2023 14:12-0500 SaO2% (BldA) [Mass fraction] 100 % Marianna Gomezden LOCAL AREA NETWORK ADMINISTRATOR.ACCOUNT SUPPORT ASSOCIATE Work Phone: [facility] 12-27-2023 14:12-0500 Systolic blood pressure 126 mm[Hg] Marianna Queden LOCAL AREA NETWORK ADMINISTRATOR.ACCOUNT SUPPORT ASSOCIATE Work Phone: [facility] 12-24-2023 10:38-0500 Body height 180.3 cm Susana Hritz LOCAL AREA NETWORK ADMINISTRATOR.ACCOUNT SUPPORT ASSOCIATE Work Phone: [facility] 12-24-2023 10:38-0500 Body mass index (BMI) [Ratio] 18.97 kg/m2 Susana Hritz LOCAL AREA NETWORK ADMINISTRATOR.ACCOUNT SUPPORT ASSOCIATE Work Phone: [facility] 12-24-2023 10:38-0500 Body weight 61.69 kg Susana Hritz LOCAL AREA NETWORK ADMINISTRATOR.ACCOUNT SUPPORT ASSOCIATE Work Phone: [facility] 12-24-2023 10:38-0500 Diastolic blood pressure 84 mm[Hg] Susana Hritz LOCAL AREA NETWORK ADMINISTRATOR.ACCOUNT SUPPORT ASSOCIATE Work Phone: [facility] 12-24-2023 10:38-0500 Heart rate 70 /min Susana Hritz LOCAL AREA NETWORK ADMINISTRATOR.ACCOUNT SUPPORT ASSOCIATE Work Phone: [facility] 12-24-2023 10:38-0500 Systolic blood pressure 132 mm[Hg] Susana Hritz LOCAL AREA NETWORK ADMINISTRATOR.ACCOUNT SUPPORT ASSOCIATE Work Phone: [facility] 11-15-2023 10:50-0400 Body height 177.8 cm Vandana Edwards Work Phone: [facility] 11-15-2023 10:50-0400 Body mass index (BMI) [Ratio] 18.94 kg/m2 Vandana Edwards Work Phone: [facility] 11-15-2023 10:50-0400 Body temperature 97.7 [degF] Vandana Edwards Work Phone: [facility] 11-15-2023 10:50-0400 Body weight 59.88 kg Vandana Edwards Work Phone: [facility] 11-15-2023 10:50-0400 Diastolic blood pressure 105 mm[Hg] Vandana Edwards Work Phone: [facility] 11-15-2023 10:50-0400 Heart rate 106 /min Vandana Edwards Work Phone: [facility] 11-15-2023 10:50-0400 SaO2% (BldA) [Mass fraction] 98 % Vandana Edwards Work Phone: [facility] 11-15-2023 10:50-0400 Systolic blood pressure 141 mm[Hg] Vandana dEwards Work Phone: [facility] 10-30-2023 17:46-0400 Blood Pressure Location ANN-MARIE DILLON DO [facility] 10-30-2023 17:46-0400 Blood Pressure Method ANN-MARIE DILLON DO [facility] 10-30-2023 17:46-0400 Diastolic Blood Pressure Non-Invasive 94 mm[Hg] ANN-MARIE DILLON DO [facility] 10-30-2023 17:46-0400 Heart rate 64 /min ANN-MARIE DILLON DO [facility] 10-30-2023 17:46-0400 Reason For Taking VItal Signs ANN-MARIE DILLON DO [facility] 10-30-2023 17:46-0400 Respiratory rate 18 /min ANN-MARIE DILLON DO [facility] 10-30-2023 17:46-0400 Systolic Blood Pressure Non-Invasive 167 mm[Hg] ANN-MARIE WILMA DO [facility] 10-30-2023 17:24-0400 Blood Pressure Location ANN-MARIE WILMA DO [facility] 10-30-2023 17:24-0400 Blood Pressure Method ANN-MARIE DILLON DO [facility] 10-30-2023 17:24-0400 Diastolic Blood Pressure Non-Invasive 100 mm[Hg] ANN-MARIE DILLON DO [facility] 10-30-2023 17:24-0400 Heart rate 85 /min ANN-MARIE DILLON DO [facility] 10-30-2023 17:24-0400 Reason For Taking VItal Signs ANN-MARIE DILLON DO [facility] 10-30-2023 17:24-0400 Respiratory rate 14 /min ANN-MARIE DILLON DO [facility] 10-30-2023 17:24-0400 Systolic Blood Pressure Non-Invasive 200 mm[Hg] ANN-MARIE DILLON DO [facility] 10-30-2023 15:15-0400 Blood Pressure Location ANN-MARIE DILLON DO [facility] 10-30-2023 15:15-0400 Blood Pressure Method ANN-MARIE DILLON DO [facility] 10-30-2023 15:15-0400 Body temperature 98.24 [degF] ANN-MARIE DILLON DO [facility] 10-30-2023 15:15-0400 Body weight 63.6 kg ANN-MARIE DILLON DO [facility] 10-30-2023 15:15-0400 Diastolic Blood Pressure Non-Invasive 92 mm[Hg] ANN-MARIE DILLON DO [facility] 10-30-2023 15:15-0400 Heart rate 73 /min ANN-MARIE DILLON DO [facility] 10-30-2023 15:15-0400 Respiratory rate 14 /min ANN-MARIE DILLON DO [facility] 10-30-2023 15:15-0400 Systolic Blood Pressure Non-Invasive 156 mm[Hg] ANN-MARIE DILLON DO [facility] 10-14-2023 11:05-0400 Body height 180.3 cm Marianna Queden LOCAL AREA NETWORK ADMINISTRATOR.ACCOUNT SUPPORT ASSOCIATE Work Phone: [facility] 10-14-2023 11:05-0400 Body mass index (BMI) [Ratio] 18.83 kg/m2 Marianna Queden LOCAL AREA NETWORK ADMINISTRATOR.ACCOUNT SUPPORT ASSOCIATE Work Phone: [facility] 10-14-2023 11:05-0400 Body temperature 97.59 [degF] Marianna Queden LOCAL AREA NETWORK ADMINISTRATOR.ACCOUNT SUPPORT ASSOCIATE Work Phone: [facility] 10-14-2023 11:05-0400 Body weight 61.24 kg Marianna Queden LOCAL AREA NETWORK ADMINISTRATOR.ACCOUNT SUPPORT ASSOCIATE Work Phone: [facility] 10-14-2023 11:05-0400 Diastolic blood pressure 70 mm[Hg] Marianna Queden LOCAL AREA NETWORK ADMINISTRATOR.ACCOUNT SUPPORT ASSOCIATE Work Phone: [facility] 10-14-2023 11:05-0400 Heart rate 60 /min Marianna Queden LOCAL AREA NETWORK ADMINISTRATOR.ACCOUNT SUPPORT ASSOCIATE Work Phone: [facility] 10-14-2023 11:05-0400 Respiratory rate 18 /min Marianna Queden LOCAL AREA NETWORK ADMINISTRATOR.ACCOUNT SUPPORT ASSOCIATE Work Phone: [facility] 10-14-2023 11:05-0400 SaO2% (BldA) [Mass fraction] 100 % Marianna Queden LOCAL AREA NETWORK ADMINISTRATOR.ACCOUNT SUPPORT ASSOCIATE Work Phone: [facility] 10-14-2023 11:05-0400 Systolic blood pressure 122 mm[Hg] Marianna Queden LOCAL AREA NETWORK ADMINISTRATOR.ACCOUNT SUPPORT ASSOCIATE Work Phone: [facility] 08-09-2023 13:11-0400 Body height 180.3 cm Marianna Jasonden LOCAL AREA NETWORK ADMINISTRATOR.ACCOUNT SUPPORT ASSOCIATE Work Phone: [facility] 08-09-2023 13:11-0400 Body mass index (BMI) [Ratio] 19.39 kg/m2 Marianna Queden LOCAL AREA NETWORK ADMINISTRATOR.ACCOUNT SUPPORT ASSOCIATE Work Phone: [facility] 08-09-2023 13:11-0400 Body temperature 99 [degF] Marianna Queden LOCAL AREA NETWORK ADMINISTRATOR.ACCOUNT SUPPORT ASSOCIATE Work Phone: [facility] 08-09-2023 13:11-0400 Body weight 63.05 kg Marianna Queden LOCAL AREA NETWORK ADMINISTRATOR.ACCOUNT SUPPORT ASSOCIATE Work Phone: [facility] 08-09-2023 13:11-0400 Diastolic blood pressure 76 mm[Hg] Marianna Queden LOCAL AREA NETWORK ADMINISTRATOR.ACCOUNT SUPPORT ASSOCIATE Work Phone: [facility] 08-09-2023 13:11-0400 Heart rate 98 /min Marianna Queden LOCAL AREA NETWORK ADMINISTRATOR.ACCOUNT SUPPORT ASSOCIATE Work Phone: [facility] 08-09-2023 13:11-0400 SaO2% (BldA) [Mass fraction] 99 % Marianna Queden LOCAL AREA NETWORK ADMINISTRATOR.ACCOUNT SUPPORT ASSOCIATE Work Phone: [facility] 08-09-2023 13:11-0400 Systolic blood pressure 122 mm[Hg] Marianna Jasonden LOCAL AREA NETWORK ADMINISTRATOR.ACCOUNT SUPPORT ASSOCIATE Work Phone: [facility] 05-20-2023 13:15-0400 Body temperature 97.7 [degF] [employer]-C Andreas Pathak BU[employer]NER Work Phone: [facility] 05-20-2023 13:15-0400 Diastolic blood pressure 73 mm[Hg] [employer]-C Andreas Pathak [employer]NER Work Phone: [facility] 05-20-2023 13:15-0400 Heart rate 74 /min [employer] Andreas Pathak BU[employer] T[employer]NER Work Phone: [facility] 05-20-2023 13:15-0400 Respiratory rate 16 /min [employer] Andreas Pathak BUCK[employer] TURNER Work Phone: [facility] 05-20-2023 13:15-0400 SaO2% (BldA) [Mass fraction] 96 % [employer] Andreas Pathak BU[employer] T[employer]NER Work Phone: [facility] 05-20-2023 13:15-0400 Systolic blood pressure 107 mm[Hg] [employer]C Andreas Pathak BU[employer] T[employer]NER Work Phone: [facility] 05-20-2023 06:00-0400 Body mass index (BMI) [Ratio] 25.8 kg/m2 [employer] Andreas Pathak [employer] T[employer]NER Work Phone: [facility] 05-20-2023 06:00-0400 Body weight 84.1 kg [employer]C Andreas Pathak [employer]NER Work Phone: [facility] 05-18-2023 11:01-0400 Body height 180.34 cm [employer] Andreas Pathak [employer]NER Work Phone: [facility] 05-18-2023 07:20-0400 Inhaled oxygen flow rate 2 L/min [employer] Andreas Pathak [employer] Work Phone: [facility] 05-15-2023 11:10-0400 Inhaled oxygen concentration 25 % [employer] Andreas Pathak [employer]NER Work Phone: [facility] 05-09-2023 21:45-0400 Diastolic blood pressure 66 mm[Hg] [employer]C Andreas Pathak [employer] T[employer]NER Work Phone: [facility] 05-09-2023 21:45-0400 Heart rate 116 /min [employer] Andreas Pathak [employer]NER Work Phone: [facility] 05-09-2023 21:45-0400 Respiratory rate 20 /min [employer] Andreas Pathak [employer]NER Work Phone: [facility] 05-09-2023 21:45-0400 SaO2% (BldA) [Mass fraction] 94 % [employer] Andreas Pathak [employer] T[employer]NER Work Phone: [facility] 05-09-2023 21:45-0400 Systolic blood pressure 84 mm[Hg] [employer]C Andreas Pathak BU[employer] T[employer]NER Work Phone: [facility] 05-09-2023 21:44-0400 Body temperature 97.7 [degF] [employer] Andreas Pathak [employer]NER Work Phone: [facility] 05-09-2023 21:44-0400 Inhaled oxygen flow rate 2 L/min [employer] Andreas Pathak [employer]NER Work Phone: [facility] 05-09-2023 13:31-0400 Body height 180.34 cm [employer]C Andreas Pathak BUCK[employer] TURNER Work Phone: [facility] 05-09-2023 13:31-0400 Body mass index (BMI) [Ratio] 23.8 kg/m2 [employer] Andreas Pathak [employer]NER Work Phone: [facility] 05-09-2023 13:31-0400 Body weight 77.4 kg [employer] Andreas Pathak [employer] T[employer]NER Work Phone: [facility] 04-27-2023 08:51-0400 Body temperature 98.8 [degF] [employer] Andreas Pathak BU[employer] T[employer]NER Work Phone: [facility] 04-27-2023 08:51-0400 Diastolic blood pressure 78 mm[Hg] [employer]C Andreas Pathak BU[employer] T[employer]NER Work Phone: [facility] 04-27-2023 08:51-0400 Heart rate 98 /min [employer] Andreas Pathak [employer]NER Work Phone: [facility] 04-27-2023 08:51-0400 Respiratory rate 16 /min [employer] Andreas Pathak [employer]NER Work Phone: [facility] 04-27-2023 08:51-0400 SaO2% (BldA) [Mass fraction] 95 % [employer] Andreas Pathak BU[employer] T[employer]NER Work Phone: [facility] 04-27-2023 08:51-0400 Systolic blood pressure 110 mm[Hg] [employer]C Andreas Pathak BU[employer] T[employer]NER Work Phone: [facility] 04-26-2023 14:44-0400 Body height 180.01 cm [employer]C Andreas Pathak [employer]NER Work Phone: [facility] 04-26-2023 14:44-0400 Body weight 63.9 kg [employer] Andreas Pathak [employer]NER Work Phone: [facility] 04-22-2023 22:00-0400 Inhaled oxygen flow rate 2 L/min [employer] Andreas Pathak BU[employer]NER Work Phone: [facility] 04-20-2023 17:00-0400 Body mass index (BMI) [Ratio] 19.7 kg/m2 [employer] Andreas Pathak [employer]NER Work Phone: [facility] 04-20-2023 16:05-0400 Body temperature 98.2 [degF] [employer] Andreas Pathak BU[employer]NER Work Phone: [facility] 04-20-2023 16:05-0400 Diastolic blood pressure 80 mm[Hg] [employer]C Andreas Pathak BU[employer]NER Work Phone: [facility] 04-20-2023 16:05-0400 Heart rate 117 /min [employer] Andreas Pathak [employer]NER Work Phone: [facility] 04-20-2023 16:05-0400 Respiratory rate 16 /min [employer] Andreas Pathak BU[employer]NER Work Phone: [facility] 04-20-2023 16:05-0400 SaO2% (BldA) [Mass fraction] 100 % [employer] Andreas Pathak BU[employer] Work Phone: [facility] 04-20-2023 16:05-0400 Systolic blood pressure 143 mm[Hg] [employer] Andreas Pathak BU[employer]NER Work Phone: [facility] 04-20-2023 11:29-0400 Body height 180.34 cm [employer]C Andreas Pathak BU[employer]NER Work Phone: [facility] 04-20-2023 11:29-0400 Body mass index (BMI) [Ratio] 19.6 kg/m2 [employer] Andreas Pathak BU[employer]NER Work Phone: [facility] 04-20-2023 11:29-0400 Body weight 63.9 kg [employer]C Andreas Pathak BU[employer]NER Work Phone: [facility] 03-19-2023 10:48-05[address] Blood Pressure Cuff Size DR MARIELY WAGNER MD [address] [place] [address] 03-19-2023 10:48-[address] MARIELY WAGNER MD [address] [place] [address] 03-19-2023 10:48-[address] MARIELY WAGNER MD [address] [place] [address] 03-19-2023 10:48-0500 Body temperature 97.34 [degF] DR MARIELY WAGNER MD [address] [place] [address] 03-19-2023 10:48-0500 Diastolic Blood Pressure Non-Invasive 94 mm[Hg] DR MARIELY WAGNER MD [facility] 03-19-2023 10:48-0500 Heart rate 90 /min DR MARIELY WAGNER MD [address] [place] [address] 03-19-2023 10:48-0500 Reason For Taking VItal Signs DR MARIELY WAGNER MD [address] [place] [address] 03-19-2023 10:48-0500 Respiratory rate 18 /min DR MARIELY WAGNER MD [address] [place] [address] 03-19-2023 10:48-0500 Systolic Blood Pressure Non-Invasive 143 mm[Hg] DR MARIELY WAGNER MD [address] [place] [address] 03-19-2023 08:11-0500 Heart rate 86 /min DR MARIELY WAGNER MD [facility] 03-19-2023 06:58-05[address] Pressure Cuff Size DR MARIELY WAGNER MD [facility] 03-19-2023 06:58-[address] MARIELY WAGNER MD [address] [place] [address] 03-19-2023 06:58-[address] MARIELY WAGNER MD [address] [place] [address] 03-19-2023 06:58-0500 Body temperature 97.7 [degF] DR MARIELY WAGNER MD [address] [place] [address] 03-19-2023 06:58-0500 Diastolic Blood Pressure Non-Invasive 91 mm[Hg] DR MARIELY WAGNER MD [address] [place] [address] 03-19-2023 06:58-0500 Heart rate 61 /min DR MARIELY WAGNER MD [address] [place] [address] 03-19-2023 06:58-0500 Reason For Taking VItal Signs DR MARIELY WAGNER MD [facility] 03-19-2023 06:58-0500 Respiratory rate 18 /min DR MARIELY WAGNER MD [address] [place] [address] 03-19-2023 06:58-0500 Systolic Blood Pressure Non-Invasive 146 mm[Hg] DR MARIELY WAGNER MD [address] [place] [address] 03-19-2023 04:49-0500 Blood Pressure Cuff Size DR MARIELY WAGNER MD [facility] 03-19-2023 04:49-[address] MARIELY WAGNER MD [facility] 03-19-2023 04:49-[address] MARIELY WAGNER MD [facility] 03-19-2023 04:49-0500 Body temperature 97.7 [degF] DR MARIELY WAGNER MD [address] [place] [address] 03-19-2023 04:49-0500 Diastolic Blood Pressure Non-Invasive 88 mm[Hg] DR MARIELY WAGNER MD [address] [place] [address] 03-19-2023 04:49-0500 Heart rate 65 /min DR MARIELY WAGNER MD [address] [place] [address] 03-19-2023 04:49-0500 Reason For Taking VItal Signs DR MARIELY WAGNER MD [address] [place] [address] 03-19-2023 04:49-0500 Respiratory rate 18 /min DR MARIELY WAGNER MD [address] [place] [address] 03-19-2023 04:49-0500 Systolic Blood Pressure Non-Invasive 120 mm[Hg] DR MARIELY WAGNER MD [address] [place] [address] 03-18-2023 23:28-0500 Heart rate 69 /min DR MARIELY WAGNER MD [address] [place] [address] 03-18-2023 18:42-0500 Heart rate 57 /min DR MARIELY WAGNER MD [address] [place] [address] 03-18-2023 16:45-0500 Heart rate 84 /min DR MARIELY WAGNER MD [address] [place] [address] 03-18-2023 10:40-0500 Heart rate 80 /min DR MARIELY WAGNER MD [address] [place] [address] 03-18-2023 04:01-0500 Mean blood pressure 105 mm[Hg] DR MARIELY WAGNER MD [address] [place] [address] 03-17-2023 11:11-0500 Heart rate 74 /min DR MARIELY WAGNER MD [facility] 03-16-2023 11:15-0500 Mean blood pressure 99 mm[Hg] DR MARIELY WAGNER MD [facility] 03-16-2023 10:51-0500 Mean blood pressure 111 mm[Hg] DR MARIELY WAGNER MD [facility] 03-15-2023 23:39-0500 Body height 180.[address] MARIELY WAGNER MD [facility] 03-15-2023 23:39-0500 Body weight 68.[address] MARIELY WAGNER MD [facility] 03-15-2023 23:39-0500 Body weight 21.13 kg/m2 DR MARIELY WAGNER MD [facility] 03-15-2023 10:50-0500 Body weight 68.[address] MARIELY WAGNER MD [facility] 11-01-2022 23:04-0400 Diastolic blood pressure 78 mm[Hg] [facility] 11-01-2022 23:04-0400 Heart rate 78 /min [facility] 11-01-2022 23:04-0400 Respiratory rate 18 /min [facility] 11-01-2022 23:04-0400 SaO2% (BldA) [Mass fraction] 95 % [facility] 11-01-2022 23:04-0400 Systolic blood pressure 123 mm[Hg] [facility] 11-01-2022 20:01-0400 Body height 177.[address] [facility] 11-01-2022 20:01-0400 Body mass index (BMI) [Ratio] 20.3 kg/m2 [facility] 11-01-2022 20:01-0400 Body temperature 98.2 [degF] [facility] 11-01-2022 20:01-0400 Body weight 64.[address] [facility] 10-15-2022 11:32-0400 Body height 180 cm ANDREAS Dooley CNP [facility] 10-15-2022 11:32-0400 Body weight 20.62 kg/m2 ANDREAS PATHAK LOCAL AREA NETWORK ADMINISTRATOR - ACCOUNT SUPPORT ASSOCIATE [facility] 10-15-2022 11:32-0400 Body weight 66.8 kg ANDREAS PATHAK LOCAL AREA NETWORK ADMINISTRATOR - ACCOUNT SUPPORT ASSOCIATE [facility] Comment on above: Result Comment: 160# about 2-3 months ag o pt reports d/t diarrhea and GI problems (pt currently figuring this out with PCP and getting tests ran) 10-05-2022 16:00-0400 Diastolic Blood Pressure Non-Invasive 103 1 MAGDALENA GODD[employer]Patrick [employer] [facility] 10-05-2022 16:00-0400 Heart rate 69 /min MAGDALENA GODDARDT [employer] [facility] 10-05-2022 16:00-0400 Systolic Blood Pressure Non-Invasive 134 1 MAGDALENA GODDARDT [employer] [facility] 10-05-2022 15:30-0400 Diastolic Blood Pressure Non-Invasive 93 1 MAGDALENA NUNNClinkleT [employer] [facility] 10-05-2022 15:30-0400 Heart rate 72 /min MAGDALENA GODDARDT [employer] [facility] 10-05-2022 15:30-0400 Respiratory rate 16 /min MAGDALENA GODDARDT [employer] [facility] 10-05-2022 15:30-0400 Systolic Blood Pressure Non-Invasive 149 1 MAGDALENA GODDARDT [employer] [facility] 10-05-2022 15:00-0400 Diastolic Blood Pressure Non-Invasive 118 1 MAGDALENA GODDARDT [employer] [facility] 10-05-2022 15:00-0400 Systolic Blood Pressure Non-Invasive 145 1 MAGDALENA NICKERSON [employer] [facility] 10-05-2022 14:12-0400 Blood Pressure Location MAGDALENA NICKERSON DO [employer] [facility] 10-05-2022 14:12-0400 Blood Pressure Method MAGDALENA NICKERSON [employer] [facility] 10-05-2022 13:41-0400 Body temperature 97.88 [degF] MAGDALENA NICKERSON [employer] [facility] 10-05-2022 13:41-0400 Heart rate 99 /min MAGDALENA NICKERSON [employer] [facility] 07-21-2022 00:00-0400 Diastolic blood pressure 94 mm[Hg] [facility] 07-21-2022 00:00-0400 Heart rate 79 /min [facility] 07-21-2022 00:00-0400 Respiratory rate 18 /min [facility] 07-21-2022 00:00-0400 SaO2% (BldA) [Mass fraction] 94 % [facility] 07-21-2022 00:00-0400 Systolic blood pressure 144 mm[Hg] [facility] 07-20-2022 19:10-0400 Body mass index (BMI) [Ratio] 21.5 kg/m2 [facility] 07-20-2022 19:10-0400 Body temperature 96.7 [degF] [facility] 07-20-2022 19:10-0400 Body weight 69.[address] [facility] 05-13-2022 20:38-0400 Body temperature 98.24 [degF] DR MERRICK SINGH DO [facility] 05-13-2022 20:38-0400 Diastolic Blood Pressure Non-Invasive [address] MERRICK SINGH DO [facility] 05-13-2022 20:38-0400 Heart rate 106 /min DR MERRICK SINGH DO [facility] 05-13-2022 20:38-0400 Respiratory rate 18 /min DR MERRICK SINGH DO [facility] 05-13-2022 20:38-0400 Systolic Blood Pressure Non-Invasive [address] MERRICK SINGH DO [facility] 05-13-2022 19:30-0400 Diastolic Blood Pressure Non-Invasive [address] MERRICK SINGH DO [facility] 05-13-2022 19:30-0400 Heart rate 75 /min DR MERRICK SINGH DO [facility] 05-13-2022 19:30-0400 Respiratory rate 18 /min DR MERRICK SINGH DO [facility] 05-13-2022 19:30-0400 Systolic Blood Pressure Non-Invasive [address] MERRICK SINGH DO [facility] 05-13-2022 17:35-[address] MERRICK SINGH DO [facility] 05-13-2022 17:35-[address] MERRICK SINGH DO [facility] 05-13-2022 17:35-0400 Body temperature 98.42 [degF] DR MERRICK SINGH DO [facility] 05-13-2022 17:35-0400 Diastolic Blood Pressure Non-Invasive [address] MERRICK SINGH DO [facility] 05-13-2022 17:35-0400 Heart rate 89 /min DR MERRICK SINGH DO [facility] 05-13-2022 17:35-0400 Respiratory rate 18 /min DR MERRICK SINGH DO [facility] 05-13-2022 17:35-0400 Systolic Blood Pressure Non-Invasive [address] MERRICK SINGH DO [facility] 05-13-2022 17:33-0400 Body temperature 98.42 [degF] DR MERRICK SINGH DO [facility] 03-24-2022 08:25-0500 Body temperature 97.5 [degF] [employer] Andreas Pathak [employer] Work Phone: [facility] 03-24-2022 08:25-0500 Diastolic blood pressure 76 mm[Hg] [employer] Andreas Pathak [employer] Work Phone: [facility] 03-24-2022 08:25-0500 Heart rate 66 /min [employer] Andreas Pathak [employer] Work Phone: [facility] 03-24-2022 08:25-0500 Respiratory rate 16 /min [employer] Andreas Pathak [employer] Work Phone: [facility] 03-24-2022 08:25-0500 SaO2% (BldA) [Mass fraction] 95 % [employer] Andreas Pathak [employer] Work Phone: [facility] 03-24-2022 08:25-0500 Systolic blood pressure 127 mm[Hg] [employer] Andreas Pathak [employer] Work Phone: [facility] 03-22-2022 10:11-0500 Body height 180.34 cm [employer] Andreas Pathak [employer] Work Phone: [facility] 03-22-2022 10:11-0500 Body weight 62.3 kg [employer] Andreas Pathak [employer] Work Phone: [facility] 03-21-2022 19:44-0500 Body mass index (BMI) [Ratio] 19.1 kg/m2 [employer] Andreas Pathak [employer] Work Phone: [facility] 03-21-2022 18:15-0500 Body temperature 98.5 [degF] [employer] Andreas Camargokins [employer] Work Phone: [facility] 03-21-2022 18:15-0500 Diastolic blood pressure 99 mm[Hg] [employer] Andreas Pathak [employer] Work Phone: [facility] 03-21-2022 18:15-0500 Heart rate 86 /min [employer] Andreas Pathak [employer] Work Phone: [facility] 03-21-2022 18:15-0500 Respiratory rate 18 /min [employer] Andreas Pathak [employer] Work Phone: [facility] 03-21-2022 18:15-0500 SaO2% (BldA) [Mass fraction] 100 % [employer] Andreas Pathak [employer] Work Phone: [facility] 03-21-2022 18:15-0500 Systolic blood pressure 159 mm[Hg] [employer] Andreas Pathak [employer] Work Phone: [facility] 03-21-2022 17:43-0500 Body height 180.34 cm [employer] Andreas Pathak [employer] Work Phone: [facility] 03-21-2022 17:43-0500 Body mass index (BMI) [Ratio] 20.9 kg/m2 [employer] Andreas Pathak [employer] Work Phone: [facility] 03-21-2022 17:43-0500 Body weight 68.03 kg [employer] Andreas Pathak [employer] Work Phone: [facility] 02-04-2022 13:17-0500 Body temperature 98.3 [degF] [employer] Andreas Pathak [employer] Work Phone: [facility] 02-04-2022 13:17-0500 Diastolic blood pressure 92 mm[Hg] [employer] Andreas Luxpkins [employer] Work Phone: [facility] 02-04-2022 13:17-0500 Heart rate 102 /min [employer] Andreas Luxpkins [employer] Work Phone: [facility] 02-04-2022 13:17-0500 Respiratory rate 18 /min [employer] Andreas Luxpkins [employer] Work Phone: [facility] 02-04-2022 13:17-0500 SaO2% (BldA) [Mass fraction] 100 % [employer] Andreas Luxpkins [employer] Work Phone: [facility] 02-04-2022 13:17-0500 Systolic blood pressure 121 mm[Hg] [employer] Andreas Luxpkins [employer] Work Phone: [facility] 02-04-2022 03:34-0500 Body weight 70 kg [employer] Andreas Luxpkins [employer] Work Phone: [facility] 02-02-2022 11:36-0500 Body height 180.34 cm [employer] Andreas Luxpkins [employer] Work Phone: [facility] Work Phone: 02-01-2022 21:44-0500 Body mass index (BMI) [Ratio] 20.2 kg/m2 [employer] Andreas Luxpkins [employer] Work Phone: [facility] 02-01-2022 21:00-0500 Body temperature 96.2 [degF] [employer] Andreas Luxpkins [employer] Work Phone: [facility] Work Phone: 02-01-2022 21:00-0500 Diastolic blood pressure 82 mm[Hg] [employer] Andreas Barton [employer] Work Phone: [facility] Work Phone: 02-01-2022 21:00-0500 Heart rate 128 /min [employer] Andreas Barton [employer] Work Phone: [facility] Work Phone: 02-01-2022 21:00-0500 Respiratory rate 13 /min [employer] Andreas Pathak [employer] Work Phone: [facility] Work Phone: 02-01-2022 21:00-0500 SaO2% (BldA) [Mass fraction] 100 % [employer] Andreas Pathak [employer] Work Phone: [facility] Work Phone: 02-01-2022 21:00-0500 Systolic blood pressure 117 mm[Hg] [employer] Andreas Pathak [employer] Work Phone: [facility] Work Phone: 02-01-2022 19:02-0500 Body height 180.34 cm [employer] Andreas Pathak [employer] Work Phone: [facility] Work Phone: 02-01-2022 19:02-0500 Body mass index (BMI) [Ratio] 21.5 kg/m2 [employer] Andreas Pathak [employer] Work Phone: [facility] Work Phone: 02-01-2022 19:02-0500 Body weight 70.1 kg [employer] Andreas Pathak [employer] Work Phone: [facility] Work Phone: 11-14-2021 09:51-0400 Heart rate 89 /min [employer] Andreas Pathak [employer] Work Phone: [facility] Work Phone: 11-14-2021 08:30-0400 Body temperature 98.5 [degF] [employer] Andreas Pathak [employer] Work Phone: [facility] Work Phone: 11-14-2021 08:30-0400 Diastolic blood pressure 72 mm[Hg] [employer] Andreas Pathak [employer] Work Phone: [facility] Work Phone: 11-14-2021 08:30-0400 Respiratory rate 16 /min [employer] Andreas Luxpkins [employer] Work Phone: [facility] Work Phone: 11-14-2021 08:30-0400 SaO2% (BldA) [Mass fraction] 100 % [employer] Andreas Luxpkins [employer] Work Phone: [facility] Work Phone: 11-14-2021 08:30-0400 Systolic blood pressure 121 mm[Hg] [employer] Andreas Luxpkins [employer] Work Phone: [facility] Work Phone: 11-12-2021 10:35-0400 Body weight 68.8 kg [employer] Andreas Luxpkins [employer] Work Phone: [facility] Work Phone: 11-11-2021 17:38-0400 Body mass index (BMI) [Ratio] 21.1 kg/m2 [employer] Andreas Luxpkins [employer] Work Phone: [facility] Work Phone: 11-08-2021 10:47-0400 Body temperature 98.6 [degF] [employer] Andreas Luxpkins [employer] Work Phone: [facility] Work Phone: 11-08-2021 10:47-0400 Diastolic blood pressure 95 mm[Hg] [employer] Andreas Luxpkins [employer] Work Phone: [facility] Work Phone: 11-08-2021 10:47-0400 Heart rate 82 /min [employer] Andreas Barton [employer] Work Phone: [facility] Work Phone: 11-08-2021 10:47-0400 Respiratory rate 16 /min [employer] Andreas Zo [employer] Work Phone: [facility] Work Phone: 11-08-2021 10:47-0400 SaO2% (BldA) [Mass fraction] 98 % [employer] Andreas Pathak [employer] Work Phone: [facility] Work Phone: 11-08-2021 10:47-0400 Systolic blood pressure 114 mm[Hg] [employer] Andreas Pathak [employer] Work Phone: [facility] Work Phone: 11-06-2021 10:33-0400 Body weight 69.4 kg [employer] Andreas Pathak [employer] Work Phone: [facility] Work Phone: 11-05-2021 20:28-0400 Body temperature 98 [degF] [employer] Andreas Pathak [employer] Work Phone: [facility] Work Phone: 11-05-2021 20:28-0400 Diastolic blood pressure 67 mm[Hg] [employer] Andreas Pathak [employer] Work Phone: [facility] Work Phone: 11-05-2021 20:28-0400 Heart rate 107 /min [employer] Andreas Pathak [employer] Work Phone: [facility] Work Phone: 11-05-2021 20:28-0400 Respiratory rate 18 /min [employer] Andreas Pathak [employer] Work Phone: [facility] Work Phone: 11-05-2021 20:28-0400 SaO2% (BldA) [Mass fraction] 97 % [employer] Andreas Pathak [employer] Work Phone: [facility] Work Phone: 11-05-2021 20:28-0400 Systolic blood pressure 116 mm[Hg] [employer] Andreas Luxpkins [employer] Work Phone: [facility] Work Phone: 11-05-2021 18:03-0400 Body mass index (BMI) [Ratio] 21.3 kg/m2 [employer] Andreas Luxpkins [employer] Work Phone: [facility] Work Phone: 11-05-2021 16:18-0400 Body height 180.34 cm [employer] Andreas Luxpkins [employer] Work Phone: [facility] Work Phone: 11-05-2021 16:18-0400 Body mass index (BMI) [Ratio] 24.4 kg/m2 [employer] Andreas Barton [employer] Work Phone: [facility] Work Phone: 11-05-2021 16:18-0400 Body weight 79.37 kg [employer] Andreas Zo [employer] Work Phone: [facility] Work Phone: 10-06-2021 23:34-0400 Diastolic blood pressure 76 mm[Hg] [employer] Andreas Luxpkins [employer] Work Phone: [facility] Work Phone: 10-06-2021 23:34-0400 Heart rate 100 /min [employer] Andreas Luxpkins [employer] Work Phone: [facility] Work Phone: 10-06-2021 23:34-0400 Respiratory rate 18 /min [employer] Andreas Barton [employer] Work Phone: [facility] Work Phone: 10-06-2021 23:34-0400 SaO2% (BldA) [Mass fraction] 95 % [employer] Andreas Barton [employer] Work Phone: [facility] Work Phone: 10-06-2021 23:34-0400 Systolic blood pressure 114 mm[Hg] [employer] Andreas Zo [employer] Work Phone: [facility] Work Phone: 10-06-2021 18:43-0400 Body temperature 98 [degF] [employer] Andreas Pathak [employer] Work Phone: [facility] Work Phone: 10-06-2021 12:22-0400 Body height 180.34 cm [employer] Andreas Luxpkins [employer] Work Phone: [facility] Work Phone: 10-06-2021 12:22-0400 Body mass index (BMI) [Ratio] 20.1 kg/m2 [employer] Andreas Luxpkins [employer] Work Phone: [facility] Work Phone: 10-06-2021 12:22-0400 Body weight 65.6 kg [employer] Andreas Luxpkins [employer] Work Phone: [facility] Work Phone: 09-30-2021 14:53-0400 Diastolic blood pressure 81 mm[Hg] [employer] Andreas Luxpkins [employer] Work Phone: [facility] Work Phone: 09-30-2021 14:53-0400 Heart rate 100 /min [employer] Andreas Pathak [employer] Work Phone: [facility] Work Phone: 09-30-2021 14:53-0400 Respiratory rate 18 /min [employer] Andreas Luxpkins [employer] Work Phone: [facility] Work Phone: 09-30-2021 14:53-0400 SaO2% (BldA) [Mass fraction] 97 % [employer] Andreas Luxpkins [employer] Work Phone: [facility] Work Phone: 09-30-2021 14:53-0400 Systolic blood pressure 112 mm[Hg] [employer] Andreas Luxpkins [employer] Work Phone: [facility] Work Phone: 09-30-2021 13:34-0400 Body height 180.34 cm [employer] Andreas Luxpkins [employer] Work Phone: [facility] Work Phone: 09-30-2021 13:34-0400 Body mass index (BMI) [Ratio] 21 kg/m2 [employer] Andreas Luxpkins [employer] Work Phone: [facility] Work Phone: 09-30-2021 13:34-0400 Body temperature 97.1 [degF] [employer] Andreas Luxpkins [employer] Work Phone: [facility] Work Phone: 09-30-2021 13:34-0400 Body weight 68.49 kg [employer] Andreas Barton [employer] Work Phone: [facility] Work Phone: 06-01-2021 09:42-0400 Diastolic blood pressure 86 mm[Hg] [employer] Andreas Luxpkins [employer] Work Phone: [facility] Work Phone: 06-01-2021 09:42-0400 Heart rate 67 /min [employer] Andreas Luxpkins [employer] Work Phone: [facility] Work Phone: 06-01-2021 09:42-0400 Systolic blood pressure 142 mm[Hg] [employer] Andreas Zo [employer] Work Phone: [facility] Work Phone: 06-01-2021 09:40-0400 Body temperature 98.4 [degF] [employer] Andreas Zo [employer] Work Phone: [facility] Work Phone: 06-01-2021 09:40-0400 Respiratory rate 18 /min [employer] Andreas Zo [employer] Work Phone: [facility] Work Phone: 06-01-2021 09:40-0400 SaO2% (BldA) [Mass fraction] 99 % [employer] Andreas Pathak [employer] Work Phone: [facility] Work Phone: 05-30-2021 11:48-0400 Body height 165.1 cm [employer] Andreas Pathak [employer] Work Phone: [facility] Work Phone: 05-30-2021 11:48-0400 Body weight 74.84 kg [employer] Andreas Pathak [employer] Work Phone: [facility] Work Phone: 05-29-2021 22:10-0400 Body mass index (BMI) [Ratio] 27.4 kg/m2 [employer] Andreas Pathak [employer] Work Phone: [facility] Work Phone: 05-29-2021 20:49-0400 Body temperature 98.3 [degF] [employer] Andreas Pathak [employer] Work Phone: [facility] Work Phone: 05-29-2021 20:49-0400 Diastolic blood pressure 79 mm[Hg] [employer] Andreas Pathak [employer] Work Phone: [facility] Work Phone: 05-29-2021 20:49-0400 Heart rate 115 /min [employer] Andreas Pathak [employer] Work Phone: [facility] Work Phone: 05-29-2021 20:49-0400 Respiratory rate 18 /min [employer] Andreas Pathak [employer] Work Phone: [facility] Work Phone: 05-29-2021 20:49-0400 SaO2% (BldA) [Mass fraction] 95 % [employer] Andreas Pathak [employer] Work Phone: [facility] Work Phone: 05-29-2021 20:49-0400 Systolic blood pressure 127 mm[Hg] [employer] Andreas Pathak [employer] Work Phone: [facility] Work Phone: 05-29-2021 19:09-0400 Body height 180.34 cm [employer] Andreas Pathak [employer] Work Phone: [facility] Work Phone: 05-29-2021 19:09-0400 Body mass index (BMI) [Ratio] 23 kg/m2 [employer] Andreas Pathak [employer] Work Phone: [facility] Work Phone: 05-29-2021 19:09-0400 Body weight 74.84 kg [employer] Andreas Pathak [employer] Work Phone: [facility] Work Phone: 05-22-2021 07:51-0400 Respiratory rate 16 /min [employer] Andreas Pathak [employer] Work Phone: [facility] Work Phone: 05-22-2021 06:30-0400 Body temperature 97.9 [degF] [employer] Andreas Pathak [employer] Work Phone: [facility] Work Phone: 05-22-2021 06:30-0400 Diastolic blood pressure 83 mm[Hg] [employer] Andreas Pathak [employer] Work Phone: [facility] Work Phone: 05-22-2021 06:30-0400 Heart rate 100 /min [employer] Andreas Pathak [employer] Work Phone: [facility] Work Phone: 05-22-2021 06:30-0400 SaO2% (BldA) [Mass fraction] 95 % [employer] Andreas Pathak [employer] Work Phone: [facility] Work Phone: 05-22-2021 06:30-0400 Systolic blood pressure 147 mm[Hg] [employer] Andreas Pathak [employer] Work Phone: [facility] Work Phone: 05-21-2021 18:28-0400 Body mass index (BMI) [Ratio] 24 kg/m2 [employer] Andreas Pathak [employer] Work Phone: [facility] Work Phone: 05-21-2021 18:28-0400 Body weight 74 kg [employer] Andreas Pathak [employer] Work Phone: [facility] Work Phone: 05-05-2021 14:31-0400 Diastolic blood pressure 96 mm[Hg] [employer] Andreas Pathak [employer] Work Phone: [facility] Work Phone: 05-05-2021 14:31-0400 Heart rate 87 /min [employer] Andreas Pathak [employer] Work Phone: [facility] Work Phone: 05-05-2021 14:31-0400 Respiratory rate 16 /min [employer] Andreas Pathak [employer] Work Phone: [facility] Work Phone: 05-05-2021 14:31-0400 SaO2% (BldA) [Mass fraction] 100 % [employer] Andreas Pathak [employer] Work Phone: [facility] Work Phone: 05-05-2021 14:31-0400 Systolic blood pressure 145 mm[Hg] [employer] Andreas Luxpkins [employer] Work Phone: [facility] Work Phone: 05-05-2021 13:48-0400 Body temperature 98.4 [degF] [employer] Andreas Pathak [employer] Work Phone: [facility] Work Phone: 05-04-2021 15:40-0400 Body height 180.34 cm [employer] Andreas Pathak [employer] Work Phone: [facility] Work Phone: 05-04-2021 15:40-0400 Body mass index (BMI) [Ratio] 22.3 kg/m2 [employer] Andreas Pathak [employer] Work Phone: [facility] Work Phone: 05-04-2021 15:40-0400 Body weight 72.5 kg [employer] Andreas Pathak [employer] Work Phone: [facility] Work Phone: 05-04-2021 15:36-0400 Body temperature 98 [degF] [facility] Work Phone: 05-04-2021 15:36-0400 Diastolic blood pressure 101 mm[Hg] [facility] Work Phone: 05-04-2021 15:36-0400 Heart rate 97 /min [facility] Work Phone: 05-04-2021 15:36-0400 Respiratory rate 18 /min [facility] Work Phone: 05-04-2021 15:36-0400 SaO2% (BldA) [Mass fraction] 99 % [facility] Work Phone: 05-04-2021 15:36-0400 Systolic blood pressure 157 mm[Hg] [facility] Work Phone: 05-04-2021 13:18-0400 Body height 180.[address] [facility] Work Phone: 05-04-2021 13:18-0400 Body mass index (BMI) [Ratio] 23 kg/m2 [facility] Work Phone: 05-04-2021 13:18-0400 Body weight 74.[address] [facility] Work Phone: 05-02-2021 15:49-0400 Diastolic blood pressure 92 mm[Hg] DR SHILPI BURNS MD [facility] 05-02-2021 15:49-0400 Heart rate 84 /min DR SHILPI BURNS MD [facility] 05-02-2021 15:49-0400 Respiratory rate 16 /min DR SHILPI BURNS MD [facility] 05-02-2021 15:49-0400 Systolic blood pressure 143 mm[Hg] DR SHILPI BURNS MD [facility] 05-02-2021 14:22-0400 Diastolic blood pressure 85 mm[Hg] DR SHILPI BURNS MD [facility] 05-02-2021 14:22-0400 Heart rate 87 /min DR SHILPI BURNS MD [facility] 05-02-2021 14:22-0400 Respiratory rate 16 /min DR SHILPI BURNS MD [facility] 05-02-2021 14:22-0400 Systolic blood pressure 152 mm[Hg] DR SHILPI BURNS MD [facility] 05-02-2021 13:50-0400 Diastolic blood pressure 95 mm[Hg] DR SHILPI BURNS MD [facility] 05-02-2021 13:50-0400 Heart rate 88 /min DR SHILPI BURNS MD [facility] 05-02-2021 13:50-0400 Mean blood pressure 112 mm[Hg] DR SHILPI BURNS MD [facility] 05-02-2021 13:50-0400 Respiratory rate 16 /min DR SHILPI BURNS MD [facility] 05-02-2021 13:50-0400 Systolic blood pressure 145 mm[Hg] DR SHILPI BURNS MD [facility] 05-02-2021 13:04-0400 Body temperature 98.6 [degF] DR SHILPI BURNS MD [facility] 05-02-2021 13:04-0400 Body weight 73.[address] SHILPI BURNS MD [facility] 05-02-2021 13:04-0400 Heart rate 120 /min DR SHILPI BURNS MD [facility] Encounters Encounter Date Encounter Type Care Provider Facility Start: 12-19-2024 End: 12-19-2024 Emergency department patient visit Sigrid Goodmannger [facility] Facility:[facility] Start: 12-09-2024 ambulatory Sigrid Jakub VSC Faci lity:[facility] Start: 12-09-2024 End: 12-11-2024 Evaluation and management of inpatient Sigrid Jakub [facility] Facility:[facility] Start: 10-23-2024 End: 10-23-2024 ambulatory Talia Serrano APRN.ACCOUNT SUPPORT ASSOCIATE Work Phone: Cardiology Comment on above: TAVR Meeting Start: 10-20-2024 End: 10-20-2024 ambulatory Talia Serrano APRN.ACCOUNT SUPPORT ASSOCIATE Work Phone: Cardiology Comment on above: TAVR Schedule Start: 10-17-2024 End: 10-27-2024 Evaluation and management of inpatient PIPER PEARSON Facility:[facility] Start: 10-16-2024 ambulatory Sigrid Jakub [facility] Faci lity:[facility] Start: 10-12-2024 ambulatory Ashley Alvarado Facility :[facility] Start: 10-12-2024 End: 10-17-2024 Evaluation and management of inpatient Dr. Rolan Romero DO Work Phone: -Progressive Care Unit Start: 10-12-2024 Dr. Diana miranda MD -Progressive Care Unit Work Phone: Start: 10-11-2024 ambulatory Sigrid Call [facility] Faci lity:[facility] Start: 10-10-2024 End: 10-10-2024 Heather Daley NP-Stephen -[facility] Work Phone: Start: 10-10-2024 End: 10-10-2024 ambulatory Sigrid Call [facility] Facility:[facility] Start: 10-06-2024 End: 10-06-2024 Dr. Rolan Romero DO Work Phone: -Emergency Department Work Phone: Start: 10-06-2024 End: 10-06-2024 Emergency department patient visit Dr. Rolan Romero DO Work Phone: -Emergency Department Start: 09-28-2024 End: 09-28-2024 Peggy BALDERAS -[facility] Work Phone: Start: 09-28-2024 End: 09-28-[address] Rolan Romero DO Work Phone: -[facility] Start: 09-18-2024 [facility] Start: 09-07-2024 [facility] Start: 09-04-2024 Dr. Lucas Frausto MD -[facility] Work Phone: Start: 09-03-2024 Dr. Lucas Frausto MD -[facility] Work Phone: Start: 09-02-2024 Dr. Lucas Frausto MD -[facility] Work Phone: Start: 09-01-2024 Antony Espitia DO -[facility] Start: 09-01-2024 Bernadette Pisano BUCKET TURNER-C -[facility] -[facility] Start: 09-01-2024 Dr. Lucas Frausto MD -[facility] Work Phone: Start: 09-01-2024 Dr. Barry Sheehan DO -[facility] -[facility] Start: 08-31-2024 Antony Espitia DO -[facility] Start: 08-31-2024 Dr. Lucas Frausto MD -[facility] Work Phone: Start: 08-31-2024 Dr. Barry Sheehan DO -[facility] -[facility] Start: 08-30-2024 Bernadette Pisano BUCKET TURNER-C -[facility] -[facility] Start: 08-30-2024 Dr. Lucas Frausto MD -[facility] Work Phone: Start: 08-29-2024 End: 09-04-2024 Evaluation and management of inpatient Dr. Rolan Romero DO Work Phone: -Progressive Care Unit Start: 08-29-2024 ambulatory Lucas Frausto [place] [place] Start: 08-29-2024 End: 09-04-2024 Dr. Jacky Vila MD -Progressive Care Unit Work Phone: Start: 08-13-2024 End: 08-14-2024 Refill Marianna A Queden LOCAL AREA NETWORK ADMINISTRATOR.ACCOUNT SUPPORT ASSOCIATE Work Phone: [facility] Comment on above: Refill Request Start: 08-03-2024 End: 08-04-2024 Refill Marianna A Queden LOCAL AREA NETWORK ADMINISTRATOR.ACCOUNT SUPPORT ASSOCIATE Work Phone: [facility] Comment on above: Refill Request Start: 08-03-2024 Dr. Iman palmer MD -[facility] Work Phone: Start: 08-02-2024 Suyapa BALDERAS [facility] Start: 08-02-2024 Dr. Valeriy rivers DO -[facility] Work Phone: Start: 08-01-2024 ambulatory Sigrid Call [facility] Faci lity:[facility] Start: 08-01-2024 End: 08-03-2024 Evaluation and management of inpatient No Primary Care Physician [facility] Work Phone: Start: 08-01-2024 End: 08-03-2024 Dr. Iman Aguayo MD -Progressive Care Unit Work Phone: Start: 07-20-2024 End: 07-20-2024 ambulatory No Primary Care Physician [facility] Work Phone: Start: 07-20-2024 End: 07-20-2024 Dr. Trung Bob MD -[facility] Work Phone: Start: 07-17-2024 End: 07-17-2024 ambulatory Radha Etienne RN Work Phone: Guest Service Team Leader Start: 07-17-2024 End: 07-17-2024 Home visit Radha Etienne RN Work Phone: Guest Service Team Leader Comment on above: Transition Of Care ( Andres D/C 07/14/24) Initial phone contact for Transitional Care Management Start: 07-14-2024 Dr. Conrado moura MD -[facility] Work Phone: Start: 07-13-2024 Dr. Conrado moura MD -[facility] Work Phone: Start: 07-13-2024 Dian cabrera PA-C -[facility] Start: 07-12-2024 Dian cabrera PA-C -[facility] Start: 07-12-2024 Dr. Conrado moura MD -[facility] Work Phone: Start: 07-11-2024 End: 07-14-2024 Evaluation and management of inpatient No Primary Care Physician [facility] Work Phone: Start: 07-11-2024 End: 07-14-2024 Dr. Conrado Morel MD -Medical Surgical 3 Work Phone: Start: 07-11-2024 End: 07-11-2024 ambulatory Radha Etienne RN Work Phone: AG Guest Service Team Leader Start: 07-11-2024 End: 07-11-2024 Home visit Radha Etienne RN Work Phone: Guest Service Team Leader Comment on above: Transition Of Care ( TCM f/u/) Weekly phone contact (Recurring) for Transitional Care Management Start: 07-07-2024 End: 07-07-2024 ambulatory Radha Etienne RN Work Phone: AG Guest Service Team Leader Start: 07-07-2024 End: 07-07-2024 Home visit Radha Etienne RN Work Phone: Guest Service Team Leader Comment on above: Transition Of Care ( Andres D/C 07/06/24) Initial phone contact for Transitional Care Management Start: 07-06-2024 Dr. Chris Aragon [facility] Work Phone: Start: 07-05-2024 Dr. Chris Aragon [facility] Work Phone: Start: 07-04-2024 Antony Espitia DO [facility] Start: 07-04-2024 Dr. Chris Aragon [facility] Work Phone: Start: 07-04-2024 Dr. Yaneli hall MD -[facility] Start: 07-03-2024 ambulatory [facility] Facility:[facility] Start: 07-03-2024 Antony Friend DO -[facility] Start: 07-02-2024 Dr. Melonie De La Rosa DO [facility] Work Phone: Start: 07-01-2024 Dr. Melonie De La Rosa [facility] Work Phone: Start: 06-30-2024 End: 07-06-2024 Evaluation and management of inpatient No Primary Care Physician [facility] Work Phone: Start: 06-30-2024 End: 07-06-2024 Dr. Chris Aragon [facility] Unit Work Phone: Start: 06-30-2024 ambulatory Conrado Pro Facili ty:[facility] Start: 06-28-2024 Non-patient / Non-visit Dr. Melonie De La Rosa [facility] Work Phone: Start: 06-28-2024 Antony Friend DO -[facility] Start: 06-27-2024 Non-patient / Non-visit Antonymarsha Olivere nd DO -[facility] Start: 06-27-2024 Antony Friend DO -[facility] Start: 06-27-2024 Non-patient / Non-visit Dr. Melonie De La Rosa [facility] Work Phone: Start: 06-27-2024 Dr. Melonie De La Rosa [facility] Work Phone: Start: 06-26-2024 Non-patient / Non-visit Antony Frie nd DO -[facility] Start: 06-26-2024 Antony Friend DO -[facility] Start: 06-26-2024 End: 06-26-2024 Telephone encounter Marianna Wagner APRN.ACCOUNT SUPPORT ASSOCIATE Work Phone: [facility] Comment on above: Lab Orders Start: 06-26-2024 Non-patient / Non-visit Dr. Melonie De La Rosa [facility] Work Phone: Start: 06-26-2024 Dr. Melonie [facility] Work Phone: Start: 06-25-2024 ambulatory Conrado Pro [facility] ty:[facility] Start: 06-25-2024 End: 06-28-2024 Evaluation and management of inpatient Dr. Conrado Pro DO -Progressive Care Unit Work Phone: Start: 06-25-2024 End: 06-28-2024 Dr. Melonie [facility] Work Phone: Start: 06-21-2024 End: 06-21-2024 Telephone encounter Marianna A Queden LOCAL AREA NETWORK ADMINISTRATOR.ACCOUNT SUPPORT ASSOCIATE Work Phone: [facility] Start: 05-28-2024 End: 05-29-2024 Refill Marianna A Queden LOCAL AREA NETWORK ADMINISTRATOR.ACCOUNT SUPPORT ASSOCIATE Work Phone: [facility] Comment on above: Refill Request Start: 05-14-2024 End: 05-15-2024 Refill Marianna A Queden LOCAL AREA NETWORK ADMINISTRATOR.ACCOUNT SUPPORT ASSOCIATE Work Phone: [facility] Comment on above: Refill Request Start: 04-13-2024 End: 04-13-2024 ambulatory Trung Bob Facility:[facility] Start: 04-13-2024 End: 04-13-[address] Trung [facility] Work Phone: Start: 04-13-2024 End: 04-13-2024 Dr. 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) Start: 04-10-2024 End: 06-10-2024 Follow-up encounter Susana Ramirez APRN.ACCOUNT SUPPORT ASSOCIATE Work Phone: [facility] [place] Start: 04-10-2024 End: 04-10-2024 Refill Ramy C Sheets DO Work Phone: [facility] Comment on above: Refill Request Start: 04-05-2024 ambulatory MARIANNA WAGNER Facili ty:[facility] Start: 04-05-2024 End: 04-05-2024 Subsequent hospital visit by physician Phoebe Vazquez MD Work Phone: [facility] Endoscopy Comment on above: Anemia, unspecified type [D64.9] Start: 03-31-2024 End: 03-31-2024 Telephone encounter Phoebe Vazquez MD Work Phone: General Surgery Comment on above: Returning Patient's Call Start: 03-29-2024 End: 03-29-2024 Telephone encounter Vandana Edwards Work Phone: Hematology/Oncology Start: 03-27-2024 End: 03-28-2024 Follow-up encounter Marianna Wagner APRN.ACCOUNT SUPPORT ASSOCIATE Work Phone: [facility] Comment on above: Type 2 diabetes kirk itus with complication, with long-term current use of insulin (HCC) Start: 03-24-2024 End: 03-24-2024 Telephone encounter Brandy Motta PA-C Work Phone: [place] Provider Adult Comment on above: Patient Question Start: 03-14-2024 End: 03-14-2024 ambulatory RAMY C SHEETS Facility:[facility] Start: 03-13-2024 End: 03-14-2024 Telephone encounter Phoebe Vazquez MD Work Phone: [facility] Comment on above: Patient Question Start: 03-08-2024 End: 03-08-2024 Refill Marianna A Queden LOCAL AREA NETWORK ADMINISTRATOR.ACCOUNT SUPPORT ASSOCIATE Work Phone: [facility] Comment on above: Refill Request Start: 02-21-2024 End: 02-21-2024 Refill Marianna A Queden LOCAL AREA NETWORK ADMINISTRATOR.ACCOUNT SUPPORT ASSOCIATE Work Phone: [facility] Comment on above: Refill Request Start: 02-21-2024 End: 02-21-2024 Telephone encounter Marianna A Queden LOCAL AREA NETWORK ADMINISTRATOR.ACCOUNT SUPPORT ASSOCIATE Work Phone: [facility] Comment on above: Patient Question Start: 02-20-2024 End: 02-21-2024 Refill Marianna A Queden LOCAL AREA NETWORK ADMINISTRATOR.ACCOUNT SUPPORT ASSOCIATE Work Phone: [facility] Comment on above: Refill Request Start: 02-16-2024 End: 03-03-2024 Telephone encounter Marianna A Queden LOCAL AREA NETWORK ADMINISTRATOR.ACCOUNT SUPPORT ASSOCIATE Work Phone: [facility] Comment on above: Lab Orders Start: 02-08-2024 End: 02-08-2024 Refill Marianna A Queden LOCAL AREA NETWORK ADMINISTRATOR.ACCOUNT SUPPORT ASSOCIATE Work Phone: [facility] Comment on above: Refill Request Start: 01-20-2024 End: 01-20-2024 Refill Marianna A Queden LOCAL AREA NETWORK ADMINISTRATOR.ACCOUNT SUPPORT ASSOCIATE Work Phone: [facility] Comment on above: Refill Request Start: 01-14-2024 End: 01-29-2024 Telephone encounter Vandana Edwards Work Phone: Hematology/Oncology Comment on above: Appointment Start: 01-13-2024 End: 01-13-2024 ambulatory No Primary Care Physician [place] [place] Start: 12-31-2023 End: 12-31-2023 Telephone encounter Sabra Desouza APRN.TRAFFIC ASSISTANT Work Phone: [facility] Comment on above: Anesthesia Consult Start: 12-27-2023 End: 12-27-2023 Patient encounter procedure Marianna A Queden LOCAL AREA NETWORK ADMINISTRATOR.ACCOUNT SUPPORT ASSOCIATE Work Phone: [facility] Comment on above: Primary hypertension (Primary Dx); Type 2 diabetes mellitus with complication, with long-term current use of insulin (HCC); Stage 3 chronic kidney disease, unspecified whether stage 3a or 3b CKD (HCC); Hyperlipidemia, mixed; Gastroesophageal reflux disease, unspecified whether esophagitis present; Chronic pancreatitis, unspecified pancreatitis type (HCC); Anemia, unspecified type Start: 12-27-2023 End: 12-27-2023 ambulatory MARIANNA WAGNER Facility:[facility] Start: 12-24-2023 End: 12-24-2023 ambulatory SUSANA RAMIREZ Facility:[facility] Start: 12-24-2023 End: 12-24-2023 Office outpatient new 45 minutes Susana Ramirez APRN.ACCOUNT SUPPORT ASSOCIATE Work Phone: [facility] [place] Comment on above: Anemia, unspecified type (Primary Dx); Weight loss; Chronic pancreatitis, unspecified pancreatitis type (HCC); Epigastric pain; Right lower quadrant abdominal pain Start: 12-16-2023 End: 12-16-2023 Telephone encounter Marianna Wagner APRN.CNP Work Phone: [facility] Comment on above: Results Start: 12-08-2023 ambulatory MARIANNA WAGNER [facility] Start: 12-08-2023 End: 12-08-2023 Subsequent hospital visit by physician [facility] Radiology Comment on above: Diarrhea, unspecifie d type [R19.7] Start: 12-07-2023 End: 12-07-2023 Telephone encounter Marianna Wagner LOCAL AREA NETWORK ADMINISTRATOR.ACCOUNT SUPPORT ASSOCIATE Work Phone: [facility] Start: 12-02-2023 End: 12-02-2023 Subsequent hospital visit by physician [facility] Wstr (I-Stat) Work Phone: Cat Scan Start: 11-26-2023 End: 11-26-2023 Refill Marianna Wagner APRN.CNP Work Phone: [facility] Comment on above: Refill Request Start: 11-25-2023 End: 11-29-2023 Telephone encounter Marianna Tayla Fátima LOCAL AREA NETWORK ADMINISTRATOR.ACCOUNT SUPPORT ASSOCIATE Work Phone: [facility] Comment on above: denial: [id number] JIMÉNEZ FERNANDO DUMONT Start: 11-16-2023 End: 11-16-2023 Telephone encounter Marianna Tayla Jasonden LOCAL AREA NETWORK ADMINISTRATOR.ACCOUNT SUPPORT ASSOCIATE Work Phone: [facility] Comment on above: Patient Update Start: 11-15-2023 End: 11-15-2023 ambulatory Vandana Edwards Work Phone: Hematology/Oncology Comment on above: Anemia, unspecified type (Primary Dx); Diarrhea of presumed infectious origin; 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); Medically complex patient Start: 11-15-2023 End: 11-15-2023 Patient encounter procedure Vandana Edwards Work Phone: Hematology/Oncology Start: 11-07-2023 End: 11-09-2023 Telephone encounter Marianna Wagner LOCAL AREA NETWORK ADMINISTRATOR.ACCOUNT SUPPORT ASSOCIATE Work Phone: [facility] Comment on above: Results; Orders Start: 11-06-2023 End: 11-08-2023 Refill Marianna Wagner LOCAL AREA NETWORK ADMINISTRATOR.ACCOUNT SUPPORT ASSOCIATE Work Phone: [facility] Comment on above: Refill Request Start: 11-05-2023 End: 11-05-2023 ambulatory Yessica Umana LPN [facility] Start: 10-30-2023 End: 10-30-2023 Emergency department patient visit ANN-MARIE WILMA DO [facility] Start: 10-21-2023 End: 10-21-2023 Subsequent hospital visit by physician Kira [facility] (I-Stat) Work Phone: Cat Scan Comment on above: Generalized abdomina l pain [R10.84] Start: 10-19-2023 End: 10-20-2023 Telephone encounter Jacky Sebastian DO Work Phone: Hematology/Oncology Comment on above: New Patient Start: 10-17-2023 End: 10-20-2023 Telephone encounter Marianna Wagner LOCAL AREA NETWORK ADMINISTRATOR.ACCOUNT SUPPORT ASSOCIATE Work Phone: [facility] Comment on above: Results Start: 10-14-2023 End: 10-14-2023 Patient encounter procedure Marianna Wagner LOCAL AREA NETWORK ADMINISTRATOR.ACCOUNT SUPPORT ASSOCIATE Work Phone: [facility] Comment on above: Generalized abdomina l [...] Start: 10-14-2023 End: 10-14-2023 ambulatory MARIANNA WAGNER Facility:[facility] Start: 10-07-2023 End: 10-12-2023 Telephone encounter Marianna Wagner LOCAL AREA NETWORK ADMINISTRATOR.ACCOUNT SUPPORT ASSOCIATE Work Phone: [facility] Comment on above: Results; Orders Start: 09-24-2023 Telephone encounter Marianna Wagner LOCAL AREA NETWORK ADMINISTRATOR.ACCOUNT SUPPORT ASSOCIATE Work Phone: [facility] Comment on above: Patient Question Start: 09-15-2023 ambulatory Radha Bartholomew lm, RN AG Guest Service Team Leader Start: 09-15-2023 Home visit Radha Bartholomew lm, RN AG Guest Service Team Leader Comment on above: Primary Care Coordin ator Chronic Care (Care Coordination) Start: 09-13-2023 Telephone encounter Marianna Wagner LOCAL AREA NETWORK ADMINISTRATOR.ACCOUNT SUPPORT ASSOCIATE Work Phone: [facility] Comment on above: Patient Update Start: 09-10-2023 ambulatory Radha Bartholomew lm, RN AG Guest Service Team Leader Comment on above: Diarrhea Start: 09-10-2023 Home visit Radha Bartholomew lm, RN AG Guest Service Team Leader Comment on above: Primary Care Coordin ator- Other (Care Coordination) Start: 08-24-2023 ambulatory Radha MOORE Guest Service Team Leader Start: 08-24-2023 Home visit Radha Bartholomew lm, RN AG Guest Service Team Leader Comment on above: Primary Care Coordin ator- Other (Care Coordination) Start: 08-20-2023 Telephone encounter Marianna Wagner LOCAL AREA NETWORK ADMINISTRATOR.ACCOUNT SUPPORT ASSOCIATE Work Phone: [facility] Comment on above: Patient Question Start: 08-16-2023 Telephone encounter Marianna Wagner LOCAL AREA NETWORK ADMINISTRATOR.ACCOUNT SUPPORT ASSOCIATE Work Phone: [facility] Comment on above: Results Start: 08-11-2023 Telephone encounter Marianna Wagner LOCAL AREA NETWORK ADMINISTRATOR.ACCOUNT SUPPORT ASSOCIATE Work Phone: [facility] Comment on above: Results Start: 08-09-2023 End: 08-09-2023 ambulatory MARIANNA WAGNER Facility:[facility] Start: 08-09-2023 End: 08-09-2023 Patient encounter procedure Marianna Wagner LOCAL AREA NETWORK ADMINISTRATOR.ACCOUNT SUPPORT ASSOCIATE Work Phone: [facility] Comment on above: Type 2 diabetes [...] Start: 08-09-2023 End: 08-09-2023 ambulatory [facility] Start: 05-20-2023 BUCKET TURNER-C Andreas Pathak BUCKET TURNER Work Phone: [facility] Work Phone: Start: 05-19-2023 BUCKET TURNERAstrid Pathak BUCKET TURNER Work Phone: [facility] Work Phone: Start: 05-18-2023 BUCKET TURNERAstrid Pathak BUCKET TURNER Work Phone: [facility] Work Phone: Start: 05-17-2023 BUCKET TURNER-C Andreas Pathak BUCKET TURNER Work Phone: [facility] [facility] Work Phone: Start: 05-16-2023 BUCKET TURNER-C Andreas Barton BUCKET TURNER Work Phone: [facility] Work Phone: Start: 05-15-2023 BUCKET TURNER-C Andreas Luxpkins BUCKET TURNER Work Phone: [facility] Work Phone: Start: 05-14-2023 BUCKET TURNER-C Andreas Pathak BUCKET TURNER Work Phone: [facility] [facility] Work Phone: Start: 05-13-2023 BUCKET TURNER-C Andreas Pathak BUCKET TURNER Work Phone: [facility] Work Phone: Start: 05-13-2023 BUCKET TURNER-C Andreas Pathak BUCKET TURNER Work Phone: [facility] Start: 05-12-2023 BUCKET TURNER-C Andreas Pathak BUCKET TURNER Work Phone: [facility] Start: 05-12-2023 BUCKET TURNER-C Andreas Pathak BUCKET TURNER Work Phone: [facility] [facility] Work Phone: Start: 05-11-2023 BUCKET TURNER-C Andreas Luxpkins BUCKET TURNER Work Phone: [facility] Work Phone: Start: 05-10-2023 BUCKET TURNER-C Andreas Luxpkins BUCKET TURNER Work Phone: [facility] Start: 05-10-2023 BUCKET TURNER-C Andreas Luxpkins BUCKET TURNER Work Phone: [facility] Work Phone: Start: 05-09-2023 End: 05-20-2023 Evaluation and management of inpatient BUCKET TURNER-C Andreas Pathak BUCKET TURNER Work Phone: [facility]-Medical Surgical 3 Work Phone: Start: 05-09-2023 End: 05-20-2023 BUCKET TURNER-C Andreas Pathak BUCKET TURNER Work Phone: [facility]-Progressive Care Unit Work Phone: Start: 04-27-2023 Non-patient / Non-visit BUCKET TURNER-C R chuck Pathak BUCKET TURNER Work Phone: [facility] Work Phone: Start: 04-27-2023 BUCKET TURNER-C Andreas Pathak BUCKET TURNER Work Phone: [facility] Work Phone: Start: 04-26-2023 Non-patient / Non-visit BUCKET TURNER-C R chuck Pathak BUCKET TURNER Work Phone: [facility] Work Phone: Start: 04-26-2023 BUCKET TURNER-C Andreas Pathak BUCKET TURNER Work Phone: [facility] Work Phone: Start: 04-25-2023 Non-patient / Non-visit BUCKET TURNER-C R chuck Pathak BUCKET TURNER Work Phone: [facility] [facility] Work Phone: Start: 04-25-2023 BUCKET TURNER-C Andreas Pathak BUCKET TURNER Work Phone: [facility] Work Phone: Start: 04-24-2023 Non-patient / Non-visit BUCKET TURNER-C R chuck Pathak BUCKET TURNER Work Phone: [facility] [facility] Work Phone: Start: 04-24-2023 BUCKET TURNER-C Andreas Zo BUCKET TURNER Work Phone: [facility] Work Phone: Start: 04-23-2023 Non-patient / Non-visit BUCKET TURNER-C R chuck Luxpkins BUCKET TURNER Work Phone: [facility] Work Phone: Start: 04-23-2023 BUCKET TURNER-C Andreas Barton BUCKET TURNER Work Phone: [facility] Work Phone: Start: 04-22-2023 Non-patient / Non-visit BUCKET TURNER-C R chuck Pathak BUCKET TURNER Work Phone: [facility] Work Phone: Start: 04-22-2023 BUCKET TURNER-C Andreas Pathak BUCKET TURNER Work Phone: [facility] Work Phone: Start: 04-21-2023 Non-patient / Non-visit BUCKET TURNER-C R chuck Camargokins BUCKET TURNER Work Phone: [facility] Work Phone: Start: 04-21-2023 BUCKET TURNER-C Andreas Luxpkins BUCKET TURNER Work Phone: [facility] Work Phone: Start: 04-20-2023 Evaluation and manag ement of inpatient BUCKET TURNER-C Andreas Luxpkins BUCKET TURNER Work Phone: [facility]-Medical Surgical 3 Work Phone: Start: 04-20-2023 Non-patient / Non-visit BUCKET TURNER-C R chuck Pathak BUCKET TURNER Work Phone: [facility] Work Phone: Start: 04-20-2023 End: 04-27-2023 Evaluation and management of inpatient BUCKET TURNER-C Andreas Pathak BUCKET TURNER Work Phone: [facility] Start: 04-20-2023 End: 04-27-2023 BUCKET TURNER-Stephen Pathak BUCKET TURNER Work Phone: [facility]: Start: 04-14-2023 End: 04-14-2023 Patient encounter procedure BUCKET TURNER-Stephen Pathak BUCKET TURNER Work Phone: [facility] Work Phone: Start: 04-14-2023 End: 04-14-2023 BUCKET TURNER-Stephen Pathak BUCKET TURNER Work Phone: [facility] Work Phone: Start: 04-01-2023 End: 04-06-2023 ambulatory ANDREAS PATHAK LOCAL AREA NETWORK ADMINISTRATOR - ACCOUNT SUPPORT ASSOCIATE Facility:B Start: 03-15-2023 End: 03-19-2023 Evaluation and management of inpatient DR MARIELY WAGNER MD Facility:A Start: 03-15-2023 End: 03-16-2023 ambulatory ANDREAS PATHAK LOCAL AREA NETWORK ADMINISTRATOR - ACCOUNT SUPPORT ASSOCIATE Facility:A Start: 03-15-2023 End: 03-19-2023 Evaluation and management of inpatient DR MARIELY WAGNER MD [facility] Start: 03-15-2023 End: 03-15-[address] VANESSA GROSS MD [facility] Start: 03-01-2023 ambulatory ANDREAS TOWNSEND LOCAL AREA NETWORK ADMINISTRATOR - ACCOUNT SUPPORT ASSOCIATE Facility:B Start: 02-22-2023 ambulatory ANDREAS TOWNSEND LOCAL AREA NETWORK ADMINISTRATOR - ACCOUNT SUPPORT ASSOCIATE Facility:B Start: 02-22-2023 End: 03-22-2024 OTHER THERAPY ANDREAS PATHAK LOCAL AREA NETWORK ADMINISTRATOR - ACCOUNT SUPPORT ASSOCIATE [facility] Start: 02-17-2023 End: 02-17-2023 Patient encounter procedure BUCKET TURNER-C Andreas Pathak BUCKET TURNER Work Phone: [facility] Work Phone: Start: 02-17-2023 End: 02-17-2023 BUCKET TURNER-C Andreas Pathak BUCKET TURNER Work Phone: [facility] Work Phone: Start: 01-13-2023 End: 01-13-2023 Patient encounter procedure BUCKET TURNER-C Andreas Pathak BUCKET TURNER Work Phone: [facility] Work Phone: Start: 11-01-2022 End: 11-01-2022 [facility] Start: 10-15-2022 End: 10-16-2022 ambulatory ANDREAS PATHAK LOCAL AREA NETWORK ADMINISTRATOR - ACCOUNT SUPPORT ASSOCIATE Facility:B Start: 10-15-2022 End: 10-15-2022 Patient encounter procedure ANDREAS PATHAK LOCAL AREA NETWORK ADMINISTRATOR - ACCOUNT SUPPORT ASSOCIATE [facility] Start: 10-05-2022 End: 10-05-2022 Emergency department patient visit ANDREAS PATHAK LOCAL AREA NETWORK ADMINISTRATOR - ACCOUNT SUPPORT ASSOCIATE Facility:B Start: 10-05-2022 End: 10-05-2022 Emergency department patient visit MAGDALENA EDOUARDSANDRA RILEY [facility] Start: 09-22-2022 End: 09-23-2022 ambulatory ANDREAS PATHAK LOCAL AREA NETWORK ADMINISTRATOR - ACCOUNT SUPPORT ASSOCIATE Facility:B Start: 07-20-2022 End: 07-21-2022 Emergency department patient visit [facility] Work Phone: Start: 07-02-2022 End: 07-07-2022 ambulatory ANDREAS PATHAK LOCAL AREA NETWORK ADMINISTRATOR - ACCOUNT SUPPORT ASSOCIATE Facility:B Start: 07-02-2022 End: 07-06-2022 Outreach Lab ANDREAS PATHAK LOCAL AREA NETWORK ADMINISTRATOR - ACCOUNT SUPPORT ASSOCIATE [facility] Start: 06-19-2022 End: 06-20-2022 ambulatory ANDREAS CAMARGOKINS LOCAL AREA NETWORK ADMINISTRATOR - ACCOUNT SUPPORT ASSOCIATE Facility:B Start: 06-19-2022 End: 06-19-2022 Patient encounter procedure ANDREAS PATHAK LOCAL AREA NETWORK ADMINISTRATOR - ACCOUNT SUPPORT ASSOCIATE [facility] Start: 05-13-2022 End: 05-13-2022 Emergency department patient visit DR MERRICK SINGH DO Facility:B Start: 05-13-2022 End: 05-13-2022 Emergency department patient visit DR MERRICK SINGH DO [facility] Start: 03-23-2022 Non-patient / Non-visit BUCKET TURNER-C R chuck Pathak BUCKET TURNER Work Phone: [facility] Start: 03-22-2022 Non-patient / Non-visit BUCKET TURNER-C R chuck Pathak BUCKET TURNER Work Phone: [facility] Start: 03-21-2022 Non-patient / Non-visit BUCKET TURNER-C R chuck Pathak BUCKET TURNER Work Phone: [facility] Start: 03-21-2022 End: 03-24-2022 Evaluation and management of inpatient BUCKET TURNER-C Andreas Pathak BUCKET TURNER [facility] Start: 02-04-2022 Non-patient / Non-visit BUCKET TURNER-C R chuck Pathak BUCKET TURNER Work Phone: [facility] Start: 02-03-2022 Non-patient / Non-visit BUCKET TURNER-C R chuck Pathak BUCKET TURNER Work Phone: [facility] Start: 02-02-2022 Non-patient / Non-visit BUCKET TURNER-C R chuck Pathak BUCKET TURNER Work Phone: [facility] Start: 02-01-2022 End: 02-04-2022 Evaluation and management of inpatient BUCKET TURNER-C Andreas Pathak BUCKET TURNER [facility] Start: 11-14-2021 Non-patient / Non-visit BUCKET TURNER-C R chuck Pathak BUCKET TURNER Work Phone: [facility] Start: 11-13-2021 Non-patient / Non-visit BUCKET TURNER-C R chuck Pathak BUCKET TURNER Work Phone: [facility] Start: 11-12-2021 Non-patient / Non-visit BUCKET TURNER-C R chuck Pathak BUCKET TURNER Work Phone: [facility] Start: 11-11-2021 End: 11-14-2021 Evaluation and management of inpatient BUCKET TURNER-C Andreas Pathak BUCKET TURNER [facility] Start: 11-08-2021 Non-patient / Non-visit BUCKET TURNER-C R chuck Pathak BUCKET TURNER Work Phone: [facility] Start: 11-07-2021 Non-patient / Non-visit BUCKET TURNER-C R chuck Pathak BUCKET TURNER Work Phone: [facility] Start: 11-06-2021 Non-patient / Non-visit BUCKET TURNER-C R chuck Pathak BUCKET TURNER Work Phone: [facility] Start: 11-05-2021 End: 11-08-2021 Evaluation and management of inpatient BUCKET TURNER-C Andreas Pathak BUCKET TURNER Work Phone: [facility] Start: 11-05-2021 Non-patient / Non-visit BUCKET TURNER-C R chuck Pathak BUCKET TURNER Work Phone: [facility] Start: 10-06-2021 End: 10-06-2021 Emergency department patient visit BUCKET TURNER-C Andreas Pathak BUCKET TURNER Work Phone: [facility] Start: 09-30-2021 End: 09-30-2021 Emergency department patient visit BUCKET TURNER-C Andreas Pathak BUCKET TURNER Work Phone: [facility] Start: 08-15-2021 End: 08-15-2021 Patient encounter procedure BUCKET TURNER-C Andreas Pathak BUCKET TURNER Work Phone: [facility] Start: 08-14-2021 End: 08-15-2021 Non-patient / Non-visit BUCKET TURNER-C Andreas Pathak BUCKET TURNER Work Phone: [facility] Start: 08-06-2021 End: 08-06-2021 Patient encounter procedure ANDREAS PATHAK LOCAL AREA NETWORK ADMINISTRATOR - ACCOUNT SUPPORT ASSOCIATE [facility] Start: 05-31-2021 Non-patient / Non-visit BUCKET TURNER-C Harry Pathak BUCKET TURNER Work Phone: [facility] Start: 05-30-2021 Non-patient / Non-visit BUCKET TURNER-C Harry Pathak BUCKET TURNER Work Phone: [facility] Start: 05-29-2021 Non-patient / Non-visit BUCKET TURNER-C Harry Pathak BUCKET TURNER Work Phone: [facility] Start: 05-29-2021 End: 06-01-2021 Evaluation and management of inpatient BUCKET TURNER-C Andreas Pathak BUCKET TURNER Work Phone: [facility] Start: 05-21-2021 End: 05-22-2021 Emergency department patient visit BUCKET TURNER-C Andreas Pathak BUCKET TURNER Work Phone: [facility] Start: 05-05-2021 Non-patient / Non-visit BUCKET TURNER-C Harry Pathak BUCKET TURNER Work Phone: [facility] Start: 05-05-2021 Non-patient / Non-visit BUCKET TURNER-C Harry Pathak BUCKET TURNER Work Phone: [facility] Start: 05-05-2021 Non-patient / Non-visit BUCKET TURNER-C Harry Pathak BUCKET TURNER Work Phone: [facility] Start: 05-04-2021 End: 05-05-2021 Evaluation and management of inpatient [facility] Start: 05-02-2021 End: 05-02-2021 Emergency department patient visit DR SHILPI BURNS MD [facility] Start: 04-09-2021 End: 04-09-2021 Patient encounter procedure ANDREAS PATHAK LOCAL AREA NETWORK ADMINISTRATOR - ACCOUNT SUPPORT ASSOCIATE [facility] Start: 08-25-2018 Notes/Results Only Other Other NOTE S/RESULTS Start: 08-25-2018 End: 08-25-2018 Patient encounter procedure Other Other [facility] Start: 07-15-2018 Patient encounter procedure LYSSA MONTERROSO Facility:[facility] Start: 04-08-2018 Patient encounter procedure LYSSA MONTERROSO Facility:[facility] Start: 01-14-2018 End: 01-15-2018 Patient encounter procedure LYSSA MONTERROSO Facility:[facility] Start: 11-09-2017 End: 11-09-2017 Emergency department patient visit BANDAR DAIGLE [facility] Start: 11-01-2017 Patient encounter procedure UMAIR LARKIN Facility:[facility] Start: 07-01-2017 Patient encounter procedure LYSSA MONTERROSO Facility:[facility] Start: 04-29-2017 End: 04-29-2017 Patient encounter procedure UMAIR LARKIN Facility:[facility] Start: 03-16-2016 End: 03-20-2016 Patient encounter status Marianna Wagner LOCAL AREA NETWORK ADMINISTRATOR.ACCOUNT SUPPORT ASSOCIATE Work Phone: [facility] Procedures Date Procedure Procedure Detail Performing Clinician Start: 10-24-2024 Echocardiography VANDANA ANDREW Start: 10-22-2024 Antibody screen VANDANA EDWARDS Comment on above: Order Comment: Specimen Type: BLOOD SPEC IMENOrdering Facility: [facility] Address: [address] [place] [address] Performed By: #### T SCR ####CC MAIN BLOOD BANKCLIA [id number] [address] Start: 10-19-2024 Echocardiography VANDANA EDWARDS Start: 10-18-2024 Antibody screen VANDANA EDWARDS Comment on above: Order Comment: Specimen Type: BLOOD SPEC IMENOrdering Facility: [facility] Address: [address] [place] [address] Performed By: #### T SCR ####CC MAIN BLOOD BANKCLIA [id number] [address] Start: 10-17-2024 H/O: artificial heart valve History of heart valve replacement with bioprosthetic valve Talia Serrano APRN.ACCOUNT SUPPORT ASSOCIATE Work Phone: Start: 10-12-2024 Computed tomography of [...] Start: 07-04-2024 Gliadin antibody, IgA measurement No [facility] Start: 07-04-2024 Gliadin antibody, IgG measurement No [facility] Start: 07-04-2024 Immunoglobulin M measurement No Primary Care Physician Start: 07-04-2024 In-vitro immunologic test No Primary Car e Physician Start: 07-04-2024 IMMUNOPATHOLOGIST antibody measurement No Primary Care Physician Start: [...] red cells No Primary [facility] Physician Start: 06-30-2024 Urnls dip [...] Care Physician Start: 06-27-2024 Esophagogastroduodenoscopy No Primary [facility] Physician Start: 06-27-2024 Calculation of international normalized [...] dx w/collj spec when pfrmd Susana Ramirez LOCAL AREA NETWORK ADMINISTRATOR.ACCOUNT SUPPORT ASSOCIATE Work Phone: Start: 04-05-2024 Esophagogastroduodenoscopy transoral diagnostic Susana Ramirez LOCAL AREA NETWORK ADMINISTRATOR.ACCOUNT SUPPORT ASSOCIATE Work Phone: Start: 04-05-2024 Gluc bld gluc mntr dev cleared fda spec home use Lucas De La Garzaalfonzo LOCAL AREA NETWORK ADMINISTRATOR.TRAFFIC ASSISTANT Work Phone: Start: 04-05-2024 PACER OR ICD CHECK ([place]) Phoebe pitts MD Work Phone: Start: 04-05-2024 Colonoscopy Phoebe Vazquez MD Work Phone: Start: 10-21-2023 Ct abdomen & pelvis w/o contrast material Marianna Wagner LOCAL AREA NETWORK ADMINISTRATOR.ACCOUNT SUPPORT ASSOCIATE Work Phone: Start: 08-09-2023 Culture bacterial quanttative colony count urine Marianna Tayla Gomezden LOCAL AREA NETWORK ADMINISTRATOR.ACCOUNT SUPPORT ASSOCIATE Work Phone: Start: 08-09-2023 Urnls dip stick/tablet rgnt auto w/o microscopy Marianna Tayla Gomezden LOCAL AREA NETWORK ADMINISTRATOR.ACCOUNT SUPPORT ASSOCIATE Work Phone: Start: 05-16-2023 Measurement of occult blood in stool specimen using immunoassay BUCKET TURNER-C Andreas Pathak BUCKET TURNER Work Phone: Start: 05-11-2023 US urinary tract BUCKET TURNER-C Andreas Pathak BUCKET TURNER Work Phone: Start: 05-10-2023 Urine culture BUCKET TURNER-C Andreas Pathak BUCKET TURNER Work Phone: Start: 05-10-2023 BUCKET TURNER-C Andreas Pathak BUCKET TURNER Work Phone: Start: 05-09-2023 Computed tomography of abdomen and pelvis with intravenous contrast BUCKET TURNER-C Andreas Pathak BUCKET TURNER Work Phone: Start: 05-09-2023 Plain chest X-ray BUCKET TURNER-C Andreas Pathak BUCKET TURNER Work Phone: Start: 04-23-2023 CT of head without contrast BUCKET TURNER-C Andreas Pathak BUCKET TURNER Work Phone: Start: 04-20-2023 Computed tomography of abdomen and pelvis with intravenous contrast BUCKET TURNER-C Andreas Pathak BUCKET TURNER Work Phone: Start: 02-01-2022 Plain chest X-ray BUCKET TURNER-C Andreas Pathak BUCKET TURNER Work Phone: Start: 09-30-2021 Plain chest X-ray BUCKET TURNER-C Andreas Pathak BUCKET TURNER Work Phone: Start: 05-30-2021 Ultrasonography of abdomen BUCKET TURNER-C Andreas Pathak BUCKET TURNER Work Phone: Start: 05-21-2021 End: 05-21-2021 Viral antigen assay BUCKET TURNER-C Andreas Pathak BUCKET TURNER Work Phone: Start: 05-05-2021 Cardiovascular stress test using pharmacologic stress agent BUCKET TURNER-C nAdreas Pathak BUCKET TURNER Work Phone: Start: 05-04-2021 Plain chest X-ray Start: 11-09-2017 Urinalysis BANDAR DAIGLE Comment on above: Result Comment: URINALYSIS Performed By: #### [id number] ####[facility],[address] [place] [address] Start: 11-09-2017 Microscopic examination of blood, culture BANDAR DAIGLE Comment on above: Performed By: #### [id number] ####[place] [id number] Pacemaker catheter, device (physical object) ANDREAS PATHAK LOCAL AREA NETWORK ADMINISTRATOR - ACCOUNT SUPPORT ASSOCIATE Repair of thoracic a ortic aneurysm ANDREAS LUXPKINS LOCAL AREA NETWORK ADMINISTRATOR - ACCOUNT SUPPORT ASSOCIATE Replacement of aortic valve ANDREAS LUXPKINS LOCAL AREA NETWORK ADMINISTRATOR - ACCOUNT SUPPORT ASSOCIATE Plan of Treatment Date Care Activity Detail Author Start: 08-08-2028 Prostate specific antigen measurement Prostate Cancer Screening Discussion [facility] Start: 10-23-2025 Creatinine measurement Serum Creatinine [facility] Start: 10-20-2025 Complete blood count Hemoglobin/Hematocrit [facility] Start: 10-20-2025 Creatinine measurement Serum Creatinine [facility] Start: 04-12-2025 Complete blood count Hemoglobin/Hematocrit [facility] Start: 04-05-2025 Screening for malignant neoplasm of colon [facility] Start: 01-17-2025 Hemoglobin A1c measurement HbA1C [facility] Start: 12-26-2024 Annual PCP Team Chronic Disease Visit Annual PCP Team Chronic Disease Visit [facility] Start: 12-26-2024 BP Controlled (<130/80) BP Controlled (<130/80) [facility] Start: 10-20-2024 End: 10-20-2024 Cath plmt l hrt & arts w/njx & angio img s&i CORONARY ANGIO W CATH PLACE W IMAGE INJECT & INTERP W LT HEART CATH W INJECT LT VENTRGRAPHY VHD (valvular heart disease) 10/20/2024 4:45 AM EDT [employer]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[employer]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 Start: 10-14-2024 Complete blood count Hemoglobin/Hematocrit [facility] Start: 10-14-2024 Creatinine measurement Serum Creatinine [facility] Start: 10-14-2024 Hepatitis B screening Urine Albumin:Creatinine Ratio [facility] Start: 10-13-2024 Annual PCP Team Chronic Disease Visit Annual PCP Team Chronic Disease Visit [facility] Start: 10-13-2024 BP Controlled (<130/80) BP Controlled (<130/80) [facility] Start: 10-13-2024 Screening for malignant neoplasm of colon [facility] Start: 10-12-2024 Verification routine [facility] Start: 10-12-2024 Admission procedure [facility] Start: 10-12-2024 Hospital admission, emergency, from emergency room, medical nature [facility] Start: 10-12-[address] [facility] Start: 10-09-2024 Influenza vaccination [facility] Start: 10-06-[address] [facility] Start: 09-24-2024 Creatinine measurement Serum Creatinine [facility] Start: 09-11-2024 Hemoglobin A1c measurement HbA1C [facility] Start: 09-04-2024 Patient discharge [facility] Start: 09-04-2024 Vital signs measurements [facility] Start: 09-04-2024 Dietary regime [facility] Start: 09-04-[address] [facility] Start: 09-03-2024 Referral to occupational therapist [facility] Start: 09-03-2024 Referral to service [facility] Start: 09-02-2024 Inhalation therapy procedure [facility] Start: 09-01-2024 Vital signs measurements [facility] Start: 08-31-2024 Referral to gastroenterology service [facility] Start: 08-31-[address] [facility] Start: 08-30-2024 Vital signs measurements [facility] Start: 08-30-[address] [facility] Start: 08-29-2024 End: 08-29-[address] [facility] Start: 08-29-2024 Care regimes management [facility] Start: 08-29-2024 Notification of physician [facility] Start: 08-29-[address] [facility] Start: 08-29-2024 Following clinical pathway protocol [facility] Start: 08-29-2024 Ambulation without limitation [facility] Start: 08-29-2024 Assessment of risk of venous thromboembolism [facility] Start: 08-29-2024 Insertion of catheter into peripheral vein [facility] Start: 08-29-2024 [address]xygen therapy [facility] Start: 08-29-2024 Providing care according to standard [facility] Start: 08-29-[address] [facility] Start: 08-29-2024 Verification routine [facility] Start: 08-29-2024 Admission procedure [facility] Start: 08-29-[address] [facility] Start: 08-29-2024 Patient referral to dietitian [facility] Start: 08-28-2024 Hospital admission, emergency, from emergency room, medical nature [facility] Start: 08-28-[address] [facility] Start: 08-28-[address] [facility] Start: 08-08-2024 Annual PCP Team Chronic Disease Visit Annual PCP Team Chronic Disease Visit [facility] Start: 08-08-2024 BP Controlled (<130/80) BP Controlled (<130/80) [facility] Start: 08-08-2024 Complete blood count Hemoglobin/Hematocrit [facility] Start: 08-08-2024 Creatinine measurement Serum Creatinine [facility] Start: 08-08-2024 Hepatitis B surface antibody level LDL Cholesterol [facility] Start: 08-03-2024 Patient discharge [facility] Start: 08-02-[address] [facility] Start: 08-02-2024 Referral to vascular surgeon [facility] Start: 08-01-2024 Following clinical pathway protocol [facility] Start: 08-01-2024 Application of elastic bandage [facility] Start: 08-01-2024 Assessment of risk of venous thromboembolism [facility] Start: 08-01-2024 Care regimes management [facility] Start: 08-01-2024 Elevation of affected extremity [facility] Start: 08-01-2024 Fall prevention [facility] Start: 08-01-2024 Inhalation therapy procedure [facility] Start: 08-01-2024 Insertion of catheter into peripheral vein [facility] Start: 08-01-2024 Introduction of urinary catheter [facility] Start: 08-01-2024 Measuring intake and output [facility] Start: 08-01-2024 Notification of physician [facility] Start: 08-01-2024 Oxygen therapy [facility] Start: 08-01-2024 Patient education [facility] Start: 08-01-2024 Patient referral to dietitian [facility] Start: 08-01-2024 Providing care according to standard [facility] Start: 08-01-2024 Provision of activity privileges [facility] Start: 08-01-2024 Referral to occupational therapist [facility] Start: 08-01-2024 Referral to service [facility] Start: 08-01-2024 Tobacco use cessation education [facility] Start: 08-01-2024 End: 08-01-[address] [facility] Start: 08-01-2024 Hospital admission, emergency, from emergency room, medical nature [facility] Start: 08-01-2024 Verification routine [facility] Start: 08-01-2024 Admission procedure [facility] Start: 08-01-[address] [facility] Start: 08-01-2024 Patient referral to dietitian [facility] Start: 08-01-[address] [facility] Start: 07-14-2024 Patient discharge [facility] Start: 07-13-[address] [facility] Start: 07-13-2024 Referral to service [facility] Start: 07-13-2024 End: 07-13-2024 ambulatory [facility] Comment on above: LABS 3MO OV/EARLY LABS* Start: 07-13-2024 Following clinical pathway protocol [facility] Start: 07-12-[address] [facility] Start: 07-12-2024 Referral to service [facility] Start: 07-11-2024 Ambulation without limitation [facility] Start: 07-11-2024 Assessment of risk of venous thromboembolism [facility] Start: 07-11-2024 Care regimes management [facility] Start: 07-11-2024 Inhalation therapy procedure [facility] Start: 07-11-2024 Insertion of catheter into peripheral vein [facility] Start: 07-11-2024 Measuring intake and output [facility] Start: 07-11-2024 Notification of physician [facility] [facility] Start: 07-11-2024 Patient referral to dietitian [facility] Start: 07-11-2024 Providing care according to standard [facility] Start: 07-11-2024 Referral to general surgeon [facility] Start: 07-11-2024 Referral to service [facility] Start: 07-11-2024 End: 07-11-[address] [facility] Start: 07-11-2024 Following clinical pathway protocol [facility] Start: 07-11-2024 Verification routine [facility] Start: 07-11-2024 Admission procedure [facility] Start: 07-11-2024 Hospital admission, emergency, from emergency room, medical nature [facility] Start: 07-11-[address] [facility] Start: 07-11-2024 Patient referral to [facility] Start: 07-06-2024 Patient discharge [facility] Start: 07-03-2024 Referral to mission manager [facility] Start: 07-03-2024 In-vitro immunologic test [facility] Start: 07-03-[address] [facility] Start: 07-03-2024 Serum immunofixation [facility] Start: 07-03-[address] [facility] Start: 07-03-2024 Inhalation therapy procedure [facility] Start: 07-02-2024 Referral to gastroenterology service [facility] Start: 07-01-[address] [facility] Start: 07-01-2024 Application of intermittent pneumatic compression device [facility] Start: 07-01-2024 Physiotherapy of chest [facility] Start: 06-30-2024 Following clinical pathway protocol [facility] Start: 06-30-2024 Aspiration precautions [facility] Start: 06-30-2024 Assessment of risk of venous thromboembolism [facility] Start: 06-30-2024 Care regimes management [facility] Start: 06-30-2024 Catheterization of vein [facility] Start: 06-30-2024 Insertion of catheter into peripheral vein [facility] Start: 06-30-2024 Measuring intake and output [facility] Start: 06-30-2024 Notification of physician [facility] Start: 06-30-2024 Oxygen therapy [facility] Start: 06-30-2024 Providing care according to standard [facility] Start: 06-30-2024 Provision of activity privileges [facility] Start: 06-30-2024 Referral to service [facility] Start: 06-30-2024 End: 06-30-[address] [facility] Start: 06-30-2024 Admission procedure [facility] Start: 06-30-2024 Patient referral to dietitian [facility] Start: 06-30-[address] [facility] Start: 06-28-2024 Patient discharge [facility] Start: 06-27-[address] [facility] Start: 06-26-2024 Application of intermittent pneumatic compression device [facility] Start: 06-26-2024 Following clinical pathway protocol [facility] Start: 06-26-2024 End: 06-26-2024 Microbial culture, body fluid [facility] Start: 06-26-2024 Anaerobic Culture Anaerobic Culture [facility] Start: 06-26-2024 Referral to service [facility] Start: 06-26-2024 Following clinical pathway protocol [facility] Start: 06-26-2024 Aspiration precautions [facility] Start: 06-26-2024 Assessment of risk of venous thromboembolism [facility] Start: 06-26-2024 Care regimes management [facility] Start: 06-26-2024 Documentation procedure [facility] Start: 06-26-2024 Inhalation therapy procedure [facility] Start: 06-26-2024 Insertion of catheter into peripheral vein [facility] Start: 06-26-2024 Measuring intake and output [facility] Start: 06-26-2024 Notification of physician [facility] Start: 06-26-20[address]xygen therapy [facility] Start: 06-26-2024 Providing care according to standard [facility] Start: 06-26-2024 Provision of activity privileges [facility] Start: 06-26-2024 Referral to gastroenterology service [facility] Start: 06-26-2024 Referral to service [facility] Start: 06-26-2024 Seizure precautions [facility] Start: 06-26-2024 Tobacco use cessation education [facility] Start: 06-26-2024 End: 06-26-[address] [facility] Start: 06-26-2024 Care of central venous catheter [facility] Start: 06-26-2024 Following clinical pathway protocol [facility] Start: 06-26-2024 Patient referral to dietitian [facility] Start: 06-25-[address] [facility] Start: 06-25-2024 Verification routine [facility] Start: 06-25-2024 Admission procedure [facility] Start: 06-25-2024 Hospital admission, emergency, from emergency room, medical nature [facility] Start: 06-25-2024 Clostridioides difficile (PCR) Clostridioides difficile (PCR) [facility] Start: 06-25-2024 Enteric Bacteriology Enteric Bacteriology [facility] Start: 06-25-2024 Ova and Parasites Ova and Parasites [facility] Start: 06-25-2024 Stool Lactoferrin Stool Lactoferrin [facility] Start: 04-12-2024 End: 04-12-2024 ambulatory [facility] Comment on above: LABS* LABS EARLY/OV/EGD & COLONOSCOPY 04/05* Start: 04-05-2024 End: 04-05-2024 Patient encounter procedure [facility] Endoscopy Comment on above: Colon EGD- PLEASE DO NOT CANCEL THIS PAT IENT Start: 03-29-2024 End: 03-29-2024 ambulatory [facility] Comment on above: LABS* LABS EARLY / OV/EGD & COLONOSCOPY 03/16* Start: 03-16-2024 End: 02-06-2025 Patient encounter procedure 03/16/2024 11:00 AM EST Appointment LD SURGERY [address] [place] [address] Phoebe Vazquez [facility] [address] [facility] [place] [phone] Anemia, unspecified type [D64.9]; Weight loss [R63.4 [facility] SURGERY Comment on above: Anemia, unspecified type [D64.9]; Weight loss [R63.4 Start: 03-08-2024 End: 06-07-2024 Hemoglobin A1c in Blood HEMOGLOBIN A1C Lab Routine Type 2 diabetes mellitus with complication, with long-term current use of insulin (HCC) Expected: 03/08/2024, Expires: 06/07/2024 Work Phone: Comment on above: Expected: 03/08/2024, Expires: Start: 02-28-2024 End: 02-28-2024 Patient encounter procedure 02/28/2024 10:20 AM EST Office Visit [facility] [address] [place] [address] Marianna Wagner, LOCAL AREA NETWORK ADMINISTRATOR.[facility] [address] [place] [address] follow up diabetes [facility] Comment on above: follow up diabetes Start: 02-09-2024 Hemoglobin A1c measurement HbA1C [facility] Start: 01-17-2024 End: 04-17-2024 CBC W Auto Differential panel - Blood COMPLETE BLOOD COUNT AND DIFFERENTIAL Lab STAT Anemia, unspecified type Expected: 01/17/2024, Expires: 04/17/2024 Work Phone: Comment on above: Expected: 01/17/2024, Expires: Start: 01-14-2024 End: 01-14-2024 ambulatory [facility] Comment on above: LABS? 2MO OV/LABS EARLY* Start: 01-07-2024 End: 01-07-2024 Patient encounter procedure 01/07/2024 10:00 AM EST Appointment Ambulatory Surgery [address] [facility] [place] [phone] Amy Kohli MD [address] [facility] [place] [id number] Anemia, unspecified type [D64.9]; Weight loss [R63.4] Ambulatory Surgery Comment on above: Anemia, unspecified type [D64.9]; Weight loss [R63.4] Start: 12-31-2023 End: 12-31-2023 Anesthesia consultation 12/31/2023 11:59 PM EST Anesthesia Event Ambulatory Surgery [address] [facility] [place] [address] Sabra Desouza APRN.TRAFFIC ASSISTANT [address] [place], [place] [id number] Ambulatory Surgery Start: 12-27-2023 End: 12-27-2023 Patient encounter procedure 12/27/2023 2:00 PM EST Office Visit [facility] [address] [place], [place] [phone] Marianna Wagner LOCAL AREA NETWORK ADMINISTRATOR.ACCOUNT SUPPORT ASSOCIATE [address] [place], [place] [phone] 3 MTH F/U DM [facility] Comment on above: 3 MTH F/U DM Start: 12-24-2023 End: 12-24-2023 Patient encounter procedure 12/24/2023 11:20 AM EST Office Visit [facility] [address] [facility] [place] [address] Susana Ramirez APRN.ACCOUNT SUPPORT ASSOCIATE [address] [facility] [place] [place] [phone] referred by pcp for anemia, currently being treated for e-coli and cdiff [facility] Comment on above: referred by pcp for [...] PM EDT Appointment Cat Scan [address] [place] [address] Diarrhea, unspecified type [R19.7] Cat Scan Comment on above: Diarrhea, unspecified type [R19.7] Start: 11-15-2023 End: 11-15-2023 ambulatory 11/15/2023 10:30 AM EDT Visit (SP) Office Hematology/Oncology [address] [facility], [place] [phone] Vandana Edwards [address] [place] [facility] [address] BUCKET TURNER/ANEMIA/REF MARIANNA WAGNER* resched 10/24, 11/07 this date and time per patient Hematology/Oncology Comment on above: BUCKET TURNER/ANEMIA/REF MARIANNA WAGNER* resched , 11/07 this date and time per patient Start: 11-09-2023 End: 11-09-2023 Patient encounter procedure 11/09/2023 1:20 PM EDT Office Visit [facility] [address] [place] [address] Marianna Wagner, LOCAL AREA NETWORK ADMINISTRATOR.ACCOUNT SUPPORT ASSOCIATE [address] [place], [place] [phone] 3 MTH F/U DM [facility] Comment on above: 3 MTH F/U DM Start: 11-08-2023 End: 10-20-2024 CT Pancreas W contrast IV CT PANCREAS W IVCON Radiology Routine Diarrhea, unspecified type Acute pancreatitis, unspecified complication status, unspecified pancreatitis type Expected: 11/08/2023, Expires: 10/20/2024 Work Phone: Comment on above: Expected: 11/08/2023, Expires: Start: 11-08-2023 End: 11-08-2023 ambulatory 11/08/2023 10:30 AM EDT Visit (SP) Office Hematology/Oncology [address] [place], [place] [phone] Vandana Edwards [address] [place] [address] BUCKET TURNER/ANEMIA/REF MARIANNA QUEDEVYN* resched 10/24 this date and time per patient Hematology/Oncology Comment on above: BUCKET TURNER/ANEMIA/REF MARIANNA QUEDEN* resched this date and time per patient Start: 11-02-2023 End: 11-02-2023 Patient encounter procedure 11/02/2023 3:05 PM EDT Office Visit [facility] [address] [facility] [place] [phone] Susana Ramirez, LOCAL AREA NETWORK ADMINISTRATOR.ACCOUNT SUPPORT ASSOCIATE [address] [facility] [place] [phone] referred by pcp for anemia, currently being treated for e-coli and cdiff [facility] Comment on above: referred by pcp for anemia, currently be ing treated for e-coli and cdiff Start: 10-25-2023 End: 10-25-2023 ambulatory 10/25/2023 10:30 AM EDT Visit (SP) Office Hematology/Oncology [address] [place] [address] Vandana Edwards [address] [place], [place] [phone] BUCKET TURNER/ANEMIA/REF MARIANNAMANDY WAGNER* Hematology/Oncology Comment on above: BUCKET TURNER/ANEMIA/REF MARIANNA QUEDEN* Start: 10-21-2023 End: 10-21-2023 Patient encounter procedure 10/21/2023 2:20 PM EDT Appointment Cat Scan [address] [place] [address] CCN was accepted, Cat Scan Comment on above: CCN was accepted, Start: 10-14-2023 End: 10-14-2023 Patient encounter procedure 10/14/2023 11:20 AM EDT Office Visit [facility] [address] [place] [address] Marianna Wagner, LOCAL AREA NETWORK ADMINISTRATOR.ACCOUNT SUPPORT ASSOCIATE [address] [place] [address] Follow up blood work results [facility] Comment on above: Follow up blood work results Start: 10-10-2023 Covid-19 Vaccine ( season) Covid-19 Vaccine ( season) [facility] Start: 10-10-2023 Covid-19 Vaccine ( season) Covid-19 Vaccine () [facility] Start: 10-10-2023 Influenza vaccination Influenza Vaccine (#1) [facility] Start: 10-07-2023 End: 01-06-2024 CBC W Auto Differential panel - Blood COMPLETE BLOOD COUNT AND DIFFERENTIAL Lab Routine Anemia, unspecified type Expected: 10/07/2023, Expires: 01/06/2024 [facility] Comment on above: Expected: 10/07/2023, Expires: Start: 10-07-2023 End: 10-06-2024 Cobalamin (Vitamin B12) [Mass/volume] in Serum or Plasma VITAMIN B12 Lab Routine Anemia, unspecified type Expected: 10/07/2023, Expires: 10/06/2024 [facility] Comment on above: Expected: 10/07/2023, Expires: 5 Start: 10-07-2023 End: 01-06-2024 Comprehensive metabolic 2000 panel - Serum or Plasma COMPREHENSIVE METABOLIC PANEL Lab Routine Chronic diarrhea Expected: 10/07/2023, Expires: 01/06/2024 [facility] Comment on above: Expected: 10/07/2023, Expires: 4 Start: 10-07-2023 End: 10-06-2024 Ferritin [Mass/volume] in Serum or Plasma FERRITIN Lab Routine Anemia, unspecified type Expected: 10/07/2023, Expires: 10/06/2024 [facility] Comment on above: Expected: 10/07/2023, Expires: Start: 10-07-2023 End: 10-06-2024 Folate [Mass/volume] in Serum or Plasma FOLATE, SERUM Lab Routine Anemia, unspecified type Expected: 10/07/2023, Expires: 10/06/2024 [facility] Comment on above: Expected: 10/07/2023, Expires: Start: 10-07-2023 End: 10-06-2024 Iron and Iron binding capacity panel - Serum or Plasma IRON AND TIBC Lab Routine Anemia, unspecified type Expected: 10/07/2023, Expires: 10/06/2024 Work Phone: Comment on above: Expected: 10/07/2023, Expires: Start: 09-24-2023 End: 09-24-2023 Patient encounter procedure 09/24/2023 3:05 PM EDT Office Visit [facility] [address] [facility] [facility] [place] [address] Susana Ramirez APRN.ACCOUNT SUPPORT ASSOCIATE [address] [facility] [place] [address] referred by pcp for diarrhea(recent tests at [facility]) [facility] Comment on above: referred by pcp for diarrhea(recent test s at [facility]) Start: 09-24-2023 End: 12-24-2023 CBC W Auto Differential panel - Blood COMPLETE BLOOD COUNT AND DIFFERENTIAL Lab Routine Diarrhea of presumed infectious origin Generalized abdominal pain Expected: 09/24/2023, Expires: 12/24/2023 [facility] Comment on above: Expected: 09/24/2023, Expires: Start: 09-24-2023 End: 12-24-2023 Clostridioides difficile toxin genes [Presence] in Stool by GENEVA with probe detection C. DIFFICILE PCR Lab Routine Diarrhea of presumed infectious origin Expected: 09/24/2023, Expires: 12/24/2023 [facility] Comment on above: Expected: 09/24/2023, Expires: Start: 09-24-2023 End: 12-24-2023 Comprehensive metabolic 2000 panel - Serum or Plasma COMPREHENSIVE METABOLIC PANEL Lab Routine Diarrhea of presumed infectious origin Generalized abdominal pain Expected: 09/24/2023, Expires: 12/24/2023 [facility] Comment on above: Expected: 09/24/2023, Expires: 4 Start: 09-24-2023 End: 12-24-2023 Giardia lamblia+Cryptosporidium sp Ag [Presence] in Stool by Immunoassay CRYPTOSPORIDIUM AND GIARDIA ANTIGENS BY EIA Microbiology Routine Diarrhea of presumed infectious origin Expected: 09/24/2023, Expires: 12/24/2023 [facility] Comment on above: Expected: 09/24/2023, Expires: Start: 08-13-2023 End: 11-12-2023 Hemoglobin A1c in Blood [facility] Comment on above: Expected: 08/13/2023, Expires: Start: 05-20-2023 Patient discharge [facility] Start: 05-20-[address] [facility] Start: 05-19-2023 Administration of blood product [facility] Start: 05-15-2023 Application of elastic bandage [facility] Start: 05-13-2023 Referral to superintendent geophysical laboratory [facility] Start: 05-11-2023 Referral to occupational therapist [facility] Start: 05-10-2023 Methicillin resistant Staphylococcus aureus screening test [facility] Start: 05-10-2023 Care regimes management [facility] Start: 05-10-[address] [facility] Start: 05-10-2023 Cardiac monitoring [facility] Start: 05-10-2023 Catheterization of vein [facility] Start: 05-10-2023 End: 05-10-2023 Notification of physician [facility] Start: 05-10-2023 Thyroid stimulating hormone measurement [facility] Start: 05-10-2023 End: 05-11-[address] [facility] Start: 05-09-2023 Application of intermittent pneumatic compression device [facility] Start: 05-09-2023 Following clinical pathway protocol [facility] Start: 05-09-2023 Aspiration precautions [facility] Start: 05-09-2023 Assessment of risk of venous thromboembolism [facility] Start: 05-09-2023 Documentation procedure [facility] Start: 05-09-20[address] In[address] [facility] Start: 05-09-2023 Insertion of catheter into peripheral vein [facility] Start: 05-09-2023 Measuring intake and output [facility] Start: 05-09-[address] therapy [facility] Start: 05-09-2023 Providing care according to standard [facility] Start: 05-09-2023 Provision of activity privileges [facility] Start: 05-09-2023 Referral to service [facility] Start: 05-09-2023 Seizure precautions [facility] Start: 05-09-2023 End: 05-10-[address] [facility] Start: 05-09-2023 Verification routine [facility] Start: 05-09-2023 Admission procedure [facility] Start: 05-09-2023 Patient referral to dietitian [facility] Start: 04-27-2023 Patient discharge [facility] Start: 04-23-2023 Referral to occupational therapist [facility] Start: 04-23-2023 End: 04-23-2023 Referral to service [facility] Start: 04-21-[address] [facility] Start: 04-20-2023 Following clinical pathway protocol [facility] Start: 04-20-2023 Ambulation without limitation [facility] Start: 04-20-2023 Assessment of risk of venous thromboembolism [facility] Start: 04-20-2023 Care regimes management [facility] Start: 04-20-2023 Insertion of catheter into peripheral vein [facility] Start: 04-20-2023 Notification of physician [facility] Start: 04-20-2023 Providing care according to standard [facility] Start: 04-20-[address] [facility] Start: 04-20-2023 Verification routine [facility] Start: 04-20-2023 Admission procedure [facility] Start: 04-20-[address] [facility] Start: 04-20-2023 Triacylglycerol lipase measurement [facility] Start: 04-20-[address] [facility] Start: 10-09-2022 Covid-19 Vaccine ( season) Covid-19 Vaccine ( season) [facility] Start: 2022 Hepatitis B Vaccine (1 of 3 - Risk 3-dose series) Hepatitis B Vaccine (1 of 3 - Risk 3-dose series) [facility] Start: 2022 RSV Vaccine (1 - 1-dose 60+ series) RSV Vaccine (1 - 1-dose 60+ series) [facility] Start: 2022 RSV Vaccine (1 - Risk 60-74 years 1-dose series) RSV Vaccine (1 - Risk 60-74 years 1-dose series) [facility] Start: 03-24-2022 Patient discharge [facility] Start: 03-23-2022 Referral to service [facility] Start: 03-23-2022 Referral to occupational therapist [facility] Start: 03-21-2022 Aspiration precautions [facility] Start: 03-21-2022 Assessment of risk of venous thromboembolism [facility] Start: 03-21-2022 Care regimes management [facility] Start: 03-21-2022 Fall prevention [facility] Start: 03-21-2022 Introduction of urinary catheter [facility] Start: 03-21-2022 Notification of physician [facility] Start: 03-21-2022 Oxygen therapy [facility] Start: 03-21-2022 Referral to service [facility] Start: 03-21-2022 Vital signs measurements [facility] Start: 03-21-[address] [facility] Start: 03-21-2022 Verification routine [facility] Start: 03-21-2022 Admission procedure [facility] Start: 03-21-2022 Patient referral to dietitian [facility] Start: 02-04-2022 Patient discharge [facility] Start: 02-01-2022 Ambulation without limitation [facility] Start: 02-01-2022 Assessment of risk of venous thromboembolism [facility] Start: 02-01-2022 Care regimes management [facility] Start: 02-01-2022 Fall prevention [facility] Start: 02-01-2022 Inhalation therapy procedure [facility] Start: 02-01-2022 Insertion of catheter into peripheral vein [facility] Start: 02-01-2022 Measuring intake and output [facility] Start: 02-01-2022 Notification of physician [facility] Start: 02-01-2022 Oxygen therapy [facility] Start: 02-01-2022 Providing care according to standard [facility] Start: 02-01-2022 Provision of activity privileges [facility] Start: 02-01-2022 Referral to service [facility] Start: 02-01-2022 Vital signs measurements [facility] Start: 02-01-2022 [facility] [facility] Start: 02-01-2022 Following clinical pathway protocol [facility] Start: 02-01-2022 Verification routine [facility] Work Phone: Start: 02-01-2022 Admission procedure [facility] Start: 02-01-[address] [facility] Work Phone: Start: 02-01-2022 Lipase measurement [facility] Work Phone: Start: 02-01-2022 End: 02-01-[address] [facility] Work Phone: Start: 02-01-2022 Patient referral to dietitian [facility] Start: 11-14-2021 Patient discharge [facility] Work Phone: Start: 11-11-2021 Assessment of risk of venous thromboembolism [facility] Work Phone: Start: 11-11-2021 Care regimes management [facility] Work Phone: Start: 11-11-2021 Insertion of catheter into peripheral vein [facility] Work Phone: Start: 11-11-2021 Introduction of urinary catheter [facility] Work Phone: Start: 11-11-2021 Measuring intake and output [facility] Work Phone: Start: 11-11-2021 Notification of physician [facility] Work Phone: Start: 11-11-2021 Providing care according to standard [facility] Work Phone: Start: 11-11-2021 Provision of activity privileges [facility] Work Phone: Start: 11-11-2021 Referral to service [facility] Work Phone: Start: 11-11-2021 Vital signs measurements [facility] Work Phone: Start: 11-11-[address] [facility] Work Phone: Start: 11-11-2021 Following clinical pathway protocol [facility] Work Phone: Start: 11-11-2021 Admission procedure [facility] Work Phone: Start: 11-11-2021 Patient referral to dietitian [facility] Work Phone: Start: 11-08-2021 Patient discharge [facility] Work Phone: Start: 11-06-[address] [facility] Work Phone: Start: 11-05-2021 Referral to service [facility] Work Phone: Start: 11-05-2021 Patient referral to dietitian [facility] Work Phone: Start: 11-05-2021 Ambulation without limitation [facility] Work Phone: Start: 11-05-2021 Assessment of risk of venous thromboembolism [facility] Work Phone: Start: 11-05-2021 Care regimes management [facility] Work Phone: Start: 11-05-2021 Insertion of catheter into peripheral vein [facility] Work Phone: Start: 11-05-2021 Notification of physician [facility] Work Phone: Start: 11-05-2021 Providing care according to standard [facility] Work Phone: Start: 11-05-[address] [facility] Work Phone: Start: 11-05-2021 Verification routine [facility] Work Phone: Start: 11-05-2021 Admission procedure [facility] Work Phone: Start: 11-05-2021 End: 11-05-2021 Following clinical pathway protocol [facility] Work Phone: Start: 11-05-2021 Patient discharge [facility] Work Phone: Start: 10-06-2021 Suicide precautions [facility] Work Phone: Start: 10-09-2018 Influenza vaccination INFLUENZA VACCINE (#1) [facility] Start: 03-23-2017 Diabetic foot examination Diabetic Foot Exam [facility] Start: 06-07-2016 Hemoglobin A1c measurement HbA1C [facility] Start: 2012 Colonoscopy COLON CANCER SCREENING DISCUSSION [facility] Start: 2012 Prostate specific antigen measurement PROSTATE CANCER SCREENING DISCUSSION [facility] Start: 2012 Shingrix Vaccine (1 of 2) Shingrix Vaccine (1 of 2) [facility] Start: 2012 Zoster vaccine hzv live for subcutaneous use ZOSTER (SHINGLES) VACCINE (1 of 2) [facility] Start: 07-30-2007 Screening for malignant neoplasm of colon [facility] Start: 2002 Fasting lipid profile LIPID SCREENING [facility] Start: 1981 Hepatitis A Vaccine (1 of 2 - Risk 2-dose series) Hepatitis A Vaccine (1 of 2 - Risk 2-dose series) [facility] Start: 1981 Pneumococcal Vaccine: 50+ (1 of 2 - PCV) Pneumococcal Vaccine: 50+ (1 of 2 - PCV) [facility] Start: 1981 Third diphtheria, tetanus and acellular pertussis (DTaP) vaccination TDAP (ADULT) [facility] Start: 1981 Urine microalbumin profile DTaP,Tdap,Td Vaccine (1 - Tdap) [facility] Start: 1980 Anxiety Screening Anxiety Screening [facility] Start: 1980 BP Controlled (<130/80) BP Controlled (<130/80) [facility] Start: 1980 Tetanus vaccination TETANUS [facility] Start: 07-30-1975 HIV screening HIV SCREENING DISCUSSION [facility] Start: 1972 Glaucoma screening Dilated Retinal Exam [facility] Start: 1972 Hepatitis B screening Urine Albumin:Creatinine Ratio [facility] Start: 1968 Pneumococcal vaccination Pneumococcal Vaccine (1 of 2 - PCV) [facility] Start: 1962 Hepatitis C antibody, confirmatory test HEPATITIS C VIRUS SCREENING [facility] Alanine aminotransfe rase [Enzymatic activity/volume] in Serum or Plasma [facility] Alanine aminotransfe rase [Enzymatic activity/volume] in Serum or Plasma [facility] Alanine aminotransfe rase [Enzymatic activity/volume] in Serum or Plasma [facility] Albumin [Mass/volume ] in Serum or Plasma [facility] Albumin [Mass/volume ] in Serum or Plasma [facility] Albumin [Mass/volume ] in Serum or Plasma [facility] Albumin [Moles/volum e] in Serum or Plasma [facility] Albumin/Globulin ratio [facility] Alkaline phosphatase [Enzymatic activity/volume] in Serum or Plasma [facility] Alkaline phosphatase [Enzymatic activity/volume] in Serum or Plasma [facility] Alkaline phosphatase [Enzymatic activity/volume] in Serum or Plasma [facility] Amphetamine [Mass/volume] in Urine [facility] Amphetamine [Mass/volume] in Urine [facility] Amphetamine [Mass/volume] in Urine [facility] Amphetamines [Presen ce] in Urine by Screen method >1000 ng/mL [facility] Anion gap in Serum o r Plasma [facility] Anion gap measurement [facility] Anion gap measurement [facility] Anion gap measurement [facility] Aspartate aminotransferase [Enzymatic activity/volume] in Serum or Plasma [facility] Aspartate aminotransferase [Enzymatic activity/volume] in Serum or Plasma [facility] Aspartate aminotransferase [Enzymatic activity/volume] in Serum or Plasma [facility] Bacteria identified in Unspecified specimen by Anaerobe culture [facility] Basic metabolic 2008 panel with ionized calcium - Serum or Plasma [facility] Benzodiazepine measurement, urine [facility] Benzodiazepine measurement, urine [facility] Benzodiazepine measurement, urine [facility] Benzodiazepine measurement, urine [facility] Bilirubin, total measurement [facility] Bilirubin, total measurement [facility] Bilirubin, total measurement [facility] Bilirubin.direct [Mass/volume] in Serum or Plasma [facility] BUN/Creatinine ratio [facility] BUN/Creatinine ratio [facility] BUN/Creatinine ratio [facility] BUN/Creatinine ratio [facility] Calcium [Mass/volume ] in Serum or Plasma [facility] Calcium [Mass/volume ] in Serum or Plasma [facility] Calcium [Mass/volume ] in Serum or Plasma [facility] Calcium [Mass/volume ] in Serum or Plasma [facility] Carbon dioxide, tota l [Moles/volume] in Central venous blood [facility] Carbon dioxide, tota l [Moles/volume] in Serum or Plasma [facility] Carbon dioxide, tota l [Moles/volume] in Serum or Plasma [facility] Carbon dioxide, tota l [Moles/volume] in Serum or Plasma [facility] Chloride [Moles/volu me] in Serum or Plasma [facility] Chloride [Moles/volu me] in Serum or Plasma [facility] Chloride [Moles/volu me] in Serum or Plasma [facility] Clostridioides diffi cile DNA [Presence] in Unspecified specimen by GENEVA with probe detection [facility] Clostridioides diffi cile toxin genes [Presence] in Stool by GENEVA with probe detection C. DIFFICILE PCR Lab Routine Chronic diarrhea Ordered: 08/09/2023 [facility] Comment on above: Ordered: 08/09/2023 Cocaine measurement, urine [facility] Cocaine measurement, urine [facility] Cocaine measurement, urine [facility] Cocaine measurement, urine [facility] Creatinine [Mass/vol ume] in Serum or Plasma [facility] Creatinine [Moles/volume] in Serum or Plasma [facility] Creatinine [Moles/volume] in Serum or Plasma [facility] Creatinine [Moles/volume] in Serum or Plasma [facility] End: 11-12-2024 CT Abdomen and Pelvis WO contrast CT ABD/PEL WO IVCON Radiology Routine Generalized abdominal pain Diarrhea of presumed infectious origin Weight loss Alcohol-induced chronic pancreatitis (HCC) 1 Occurrences starting 10/14/2023 until 11/12/2024 Work Phone: Comment on above: 1 Occurrences starting 10/14/2023 until 11/12/2024 End: 01-05-2025 CT Pancreas W contrast IV CT PANCREAS W IVCON Radiology Routine Diarrhea, unspecified type Acute pancreatitis, unspecified complication status, unspecified pancreatitis type 1 Occurrences starting 12/07/2023 until 01/05/2025 Work Phone: Comment on above: 1 Occurrences starting 12/07/2023 until 01/05/2025 CT Pancreas W contra st IV CT PANCREAS W IVCON Radiology Routine Diarrhea, unspecified type Acute pancreatitis, unspecified complication status, unspecified pancreatitis type 12/08/2023 11:00 AM EDT Work Phone: Cytology report of B [place] fluid Cyto stain [facility] End: 12-23-2024 EGD DIAGNOSTIC EGD DIAGNOSTIC Endoscopy Routine Anemia, unspecified type Weight loss Chronic pancreatitis, unspecified pancreatitis type (HCC) Epigastric pain 1 Occurrences starting 12/24/2023 until 12/23/2024 [facility] Comment on above: 1 Occurrences starting 12/24/2023 until 12/23/2024 Electrophoresis: [id number] [facility] Electrophoresis: eleuterio ma globulin [facility] Erythrocyte mean corpuscular volume determination [facility] Erythrocyte mean corpuscular volume determination [facility] Erythrocyte mean corpuscular volume determination [facility] Ethanol [Mass/volume ] in Serum or Plasma [facility] fentaNYL [Presence] in Urine by Screen method [facility] End: 12-23-2024 Flexible sigmoidoscopy study COLONOSCOPY DIAGNOSTIC Endoscopy Routine Anemia, unspecified type Weight loss 1 Occurrences starting 12/24/2023 until 12/23/2024 Work Phone: Comment on above: 1 Occurrences starting 12/24/2023 until 12/23/2024 Giardia lamblia+Cryptosporidium sp Ag [Presence] in Stool by Immunoassay CRYPTOSPORIDIUM AND GIARDIA ANTIGENS BY EIA Microbiology Routine Chronic diarrhea Ordered: 08/09/2023 [facility] Comment on above: Ordered: 08/09/2023 Gliadin peptide IgA Ab [Units/volume] in Serum [facility] Gliadin peptide IgG Ab [Units/volume] in Serum [facility] Globulin measurement [facility] Glucose [Mass/volume ] in Serum or Plasma [facility] Glucose [Mass/volume ] in Serum or Plasma [facility] Glucose [Mass/volume ] in Serum or Plasma [facility] Glucose [Mass/volume ] in Serum or Plasma [facility] Hematocrit [Volume Fraction] of Blood [facility] Hematocrit [Volume Fraction] of Blood [facility] Hematocrit [Volume Fraction] of Blood [facility] Hemoglobin [Mass/vol ume] in Blood [facility] Hemoglobin [Mass/vol ume] in Blood [facility] Hemoglobin [Mass/vol ume] in Blood [facility] Hemoglobin A1c/Hemoglobin.total in Blood [facility] Hemoglobin.gastroint gurwinder nal.lower [Presence] in Stool by Immunoassay IMMUNOCHEMICAL FECAL OCCULT BLOOD TEST Lab Routine Anemia, unspecified type Ordered: 08/11/2023 Work Phone: Comment on above: Ordered: 08/11/2023 Hemoglobin.gastroint gurwinder nal.lower [Presence] in Stool by Immunoassay IMMUNOCHEMICAL FECAL OCCULT BLOOD TEST Lab Routine Diarrhea of presumed infectious origin Ordered: 09/24/2023 [facility] Comment on above: Ordered: 09/24/2023 Hepatitis A virus Ig M Ab [Presence] in Serum [facility] Hepatitis B core antibody measurement, IgM type [facility] Hepatitis B surface antigen measurement [facility] Hepatitis C antibody measurement [facility] IgA [Mass/volume] in Serum or Plasma [facility] IgG [Mass/volume] in Serum or Plasma [facility] IgM [Mass/volume] in Serum or Plasma [facility] In-vitro immunologic test [facility] Laboratory data interpretation [facility] Lactic acid measurement [facility] Lactoferrin [Presenc e] in Stool by Immunoassay [facility] Leukocytes [#/volume ] in Blood [facility] Leukocytes [#/volume ] in Blood [facility] Leukocytes [#/volume ] in Blood [facility] Magnesium [Mass/volu me] in Serum or Plasma [facility] Magnesium measurement [facility] Mean corpuscular hemoglobin concentration determination [facility] Mean corpuscular hemoglobin concentration determination [facility] Mean corpuscular hemoglobin concentration determination [facility] Mean corpuscular hemoglobin determination [facility] Mean corpuscular hemoglobin determination [facility] Mean corpuscular hemoglobin determination [facility] Measurement of 3,4-methylenedioxymetham phetamine in urine [facility] Measurement of 3,4-methylenedioxymetham phetamine in urine [facility] Measurement of 3,4-methylenedioxymetham phetamine in urine [facility] Measurement of immunoglobulin A in serum specimen [facility] Measurement of renal function [facility] Measurement of renal function [facility] Measurement of renal function [facility] Measurement of renal function [facility] Methadone measuremen t, urine [facility] Methadone measuremen t, urine [facility] Methadone measuremen t, urine [facility] Methadone measuremen t, urine [facility] Mycobacterium tuberculosis tuberculin stimulated gamma interferon [Presence] in Blood [facility] Neutrophil count [facility] Neutrophil count [facility] Neutrophil count [facility] Neutrophil cytoplasm ic Ab.classic [Units/volume] in Serum [facility] Neutrophil percent differential count [facility] Neutrophil percent differential count [facility] Neutrophil percent differential count [facility] Nucleic acid assay [facility] Ova and parasites identified in Unspecified specimen by Light microscopy OVA + PARA MICROSCOPIC Microbiology Routine Chronic diarrhea Ordered: 08/09/2023 [facility] Comment on above: Ordered: 08/09/2023 Ova and parasites identified in Unspecified specimen by Light microscopy OVA + PARA MICROSCOPIC Microbiology Routine Diarrhea of presumed infectious origin Ordered: 09/24/2023 Work Phone: Comment on above: Ordered: 09/24/2023 Ova OR parasites identification [facility] P-ANCA measurement [facility] Patient Education [facility] Work Phone: Patient referral [facility] Work Phone: pH of Urine [facility] pH of Urine [facility] pH of Urine [facility] Phencyclidine [Prese nce] in Urine [facility] Phencyclidine [Prese nce] in Urine [facility] Phencyclidine [Prese nce] in Urine [facility] Phencyclidine [Prese nce] in Urine [facility] Platelets [#/volume] in Blood [facility] Platelets [#/volume] in Blood [facility] Platelets [#/volume] in Blood [facility] Potassium [Moles/vol ume] in Serum or Plasma [facility] Potassium [Moles/vol ume] in Serum or Plasma [facility] Potassium [Moles/vol ume] in Serum or Plasma [facility] Potassium measurement [facility] Protein electrophore sis panel - Serum or Plasma [facility] Red blood cell count [facility] Red blood cell count [facility] Red blood cell count [facility] Red cell distributio n width determination [facility] Red cell distributio n width determination [facility] Red cell distributio n width determination [facility] Serum chloride measurement [facility] Serum inorganic phosphate measurement [facility] Sodium [Moles/volume ] in Serum or Plasma [facility] Sodium [Moles/volume ] in Serum or Plasma [facility] Sodium [Moles/volume ] in Serum or Plasma [facility] Sodium measurement [facility] Tissue Pathology bio psy report Work Phone: Comment on above: Release Upon Ordering for 1 Occurrences starting 04/05/2024, 1 completed Tissue transglutamin ase IgA Ab [Units/volume] in Serum [facility] Total protein measurement [facility] Total protein measurement [facility] Total protein measurement [facility] UA DIP B/O UA DIP B/O Lab R outine Dysuria Ordered: 08/09/2023 Work Phone: Comment on above: Ordered: 08/09/2023 Urea nitrogen [Mass/volume] in Serum or Plasma [facility] Urea nitrogen [Mass/volume] in Serum or Plasma [facility] Urea nitrogen [Mass/volume] in Serum or Plasma [facility] Urea nitrogen [Mass/volume] in Serum or Plasma [facility] Urine barbiturate measurement [facility] Urine barbiturate measurement [facility] Urine barbiturate measurement [facility] Urine cannabinoid measurement [facility] Urine cannabinoid measurement [facility] Urine cannabinoid measurement [facility] Urine cannabinoid measurement [facility] Urine immunofixation [facility] Urine opiate measurement [facility] Urine opiate measurement [facility] Urine opiate measurement [facility] Urine opiate measurement [facility] US Abdomen limited [facility] Immunizations Immunization Date Immunization Notes Care Provider Fa cility 11-06-2021 influenza, injectabl e, quadrivalent, preservative free [facility] 11-06-2021 influenza, seasonal, injectable [employer]-C Andreas Pathak [employer] Work Phone: [facility] 11-06-2021 influenza virus vaccine, unspecified formulation Marianna Wagner LOCAL AREA NETWORK ADMINISTRATOR.ACCOUNT SUPPORT ASSOCIATE Work Phone: [facility] 01-07-2021 influenza, injectabl e, quadrivalent, contains preservative; Translations: [Fluarix PF Quadrivalent ] ANDREAS PATHAK LOCAL AREA NETWORK ADMINISTRATOR - ACCOUNT SUPPORT ASSOCIATE [facility] 01-07-2021 influenza, injectabl e, quadrivalent, preservative free [employer] Andreas Pathak [employer]CK[employer] TURNER Work Phone: [facility] 02-09-2020 influenza, injectabl e, quadrivalent, preservative free [facility] 02-09-2020 influenza, seasonal, injectable [facility] 12-09-2018 influenza, injectabl e, quadrivalent, preservative free; Translations: [Fluarix PF Quadrivalent ] ANDREAS PATHAK LOCAL AREA NETWORK ADMINISTRATOR - ACCOUNT SUPPORT ASSOCIATE [facility] 11-10-2017 influenza, injectabl e, quadrivalent, preservative free ANDREAS PATHAK LOCAL AREA NETWORK ADMINISTRATOR - ACCOUNT SUPPORT ASSOCIATE [facility] 11-08-2017 influenza virus vaccine, unspecified formulation DR SHILPI BURNS MD [facility] 11-08-2017 influenza, injectabl e, quadrivalent, preservative free [employer]NER-C Andreas Pathak BUCKET TURNER Work Phone: [facility] 10-12-2017 influenza, injectabl e, quadrivalent, preservative free [facility] 10-12-2017 influenza, seasonal, injectable [facility] 12-09-2016 influenza virus vaccine, unspecified formulation DR SHILPI BURNS MD [facility] 12-09-2016 Seasonal, quadrivalent, recombinant, injectable influenza vaccine, preservative free BUCKET TURNER-C Andreas Zo BUCKET TURNER Work Phone: [facility] 11-29-2016 influenza virus vaccine, unspecified formulation DR SHILPI BURNS MD [facility] 11-29-2016 influenza, injectabl e, quadrivalent, preservative free [facility] 11-29-2016 influenza, seasonal, injectable [facility] 11-29-2016 Seasonal, quadrivalent, recombinant, injectable influenza vaccine, preservative free [employer] TURNER-C Andreas Camargokins BUCKET TURNER Work Phone: [facility] 12-10-2015 influenza virus vaccine, unspecified formulation DR SHILPI BURNS MD [facility] 12-10-2015 Seasonal, quadrivalent, recombinant, injectable influenza vaccine, preservative free BUCKET TURNER-C Andreas Zo BUCKET TURNER Work Phone: [facility] 10-23-2014 influenza virus vaccine, unspecified formulation DR SHILPI BURNS MD [facility] 10-23-2014 Seasonal, quadrivalent, recombinant, injectable influenza vaccine, preservative free [employer] TURNER-C Andreas Luxpkins BUCKET TURNER Work Phone: [facility] Payers Date Payer Category Payer Medicare [id number] 2024 Self-pay [id number] 2023 Medicaid [id number] 2022 Unknown [id number] 2022 Medicaid [id number] 2022 Unknown [id number] 2022 Medicaid [id number] 2018 Unknown MULTIPLAN MULTIP SAMY xxxxxxxxx 2018-Present xxxxxxxxx 1.2.840.045780.1.13.172.2.7.3.6 [id number] 2016 Unknown [id number] 1962 Unknown [id number] 2..840.1.645737.3.579.2. 1962 Unknown [id number] 2.16.840.1.558062.3.579.2. 1962 Unknown [id number] 2..840.1.222905.3.579.2. 1962 Unknown [id number] .840.1.613411.3.579.2. 1962 Unknown [id number] 2.16.840.1.179831.3.579.2. 1962 Unknown [id number] 2.16.840.1.495800.3.579.2. 1962 Unknown [id number] 2.16840.1.448734.3.579.2.627 1962 Unknown [id number] 2.16.840.1.700630.3.579.2. 1962 Unknown [id number] 2.16.840.1.839264.3.579.2.627 1962 Unknown [id number] 2.16.840.1.426782.3.579.2.627 1962 Unknown [id number] 2.16.840.1.240066.3.579.2.627 1962 Unknown [id number] 2.16.840.1.092785.3.579.2.627 1962 Unknown [id number] 2.16.840.1.611438.3.579.2.627 1962 Unknown [id number] 2.16.840.1.051783.3.579.2.627 1962 Unknown [id number] 2.16.840.1.729172.3.579.2.278 1962 Unknown [id number] 2.840.1.163814.3.579.2.278 1962 Unknown [id number] 2.16.840.1.961891.3.579.2.278 1962 Unknown [id number] 2.16.840.1.992483.3.579.2.278 1962 Unknown [id number] 2.16.840.1.022039.3.579.2.278 Unknown [id number] 2.16840.1.662890.3.579.2.462 Unknown [id number] 2.16.840.1.593833.3.579.2.462 Unknown [id number] 2.16.840.1.661743.3.579.2.462 Unknown [id number] 2.16.840.1.006034.3.579.2.462 Unknown [id number] 2.16.840.1.944759.3.579.2.462 Unknown [id number] 2.16.840.1.432089.3.579.2.462 Unknown [id number] 2.16.840.1.382998.3.579.2.462 Unknown [id number] 2.16.840.1.287941.3.579.2.462 Unknown [id number] 2.16.840.1.129086.3.579.2.462 Unknown [id number] 2.16.840.1.061280.3.579.2.462 Unknown [id number] 2.16.840.1.763759.3.579.2.462 Unknown [id number] 2.16.840.1.068163.3.579.2.462 Unknown [id number] 2.16.840.1.046651.3.579.2.462 Unknown [id number] 2.16.840.1.626488.3.579.2.462 Unknown [id number] 2.16.840.1.545408.3.579.2.462 Unknown [id number] 2.16.840.1.441988.3.579.2.462 Unknown [id number] 2.16.840.1.615704.3.579.2.462 Unknown [id number] 2.16.840.1.708943.3.579.2.462 Unknown [id number] 2.16.840.1.377326.3.579.2.462 Unknown [id number] 2.16.840.1.426464.3.579.2.462 Unknown [id number] 2.16.840.1.713376.3.579.2.462 Unknown [id number] 2.16.840.1.167890.3.579.2.462 Unknown [id number] 2.16.840.1.586722.3.579.2.462 Unknown [id number] 2.16.840.1.814239.3.579.2.462 Unknown [id number] 2.16.840.1.658121.3.579.2.462 Unknown [id number] 2.16.840.1.287063.3.579.2.462 Unknown [id number] 2.16.840.1.115442.3.579.2.462 Unknown [id number] 2.16.840.1.964496.3.579.2.462 Unknown [id number] 2.16.840.1.536434.3.579.2.462 Unknown [id number] 2.16.840.1.690704.3.579.2.462 Unknown [id number] 2.16.840.1.719505.3.579.2.462 Unknown [id number] 2.16.840.1.997497.3.579.2.462 Unknown [id number] 2.16.840.1.495524.3.579.2.462 Unknown [id number] 2.16.840.1.976135.3.579.2.462 Unknown [id number] 2.16.840.1.665135.3.579.2.462 Unknown [id number] 2.16.840.1.780075.3.579.2.462 Unknown [id number] 2.16.840.1.646692.3.579.2.462 Unknown [id number] 2.16.840.1.755476.3.579.2.462 Unknown [id number] 2.16.840.1.392113.3.579.2.462 Unknown [id number] 2.16.840.1.829381.3.579.2.462 Unknown [id number] 2.16.840.1.451203.3.579.2.462 Unknown [id number] 2.16.840.1.515004.3.579.2.462 Unknown [id number] 2.16.840.1.436269.3.579.2.462 Unknown [id number] 2.16.840.1.465054.3.579.2.462 Unknown [id number] 2.16.840.1.720182.3.579.2.462 Unknown [id number] 2.16.840.1.090054.3.579.2.462 Unknown [id number] 2.16.840.1.073621.3.579.2.462 Unknown [id number] 2.16.840.1.256529.3.579.2.462 Unknown [id number] 2.16.840.1.179957.3.579.2.462 Unknown [id number] 2.16.840.1.651115.3.579.2.462 Unknown [id number] 2.16.840.1.255571.3.579.2.462 Unknown [id number] 2.16.840.1.278476.3.579.2.462 Unknown [id number] 2.16.840.1.677007.3.579.2.462 Unknown [id number] 2.16.840.1.245680.3.579.2.462 Unknown [id number] 2.16.840.1.594670.3.579.2.462 Unknown [id number] 2.16.840.1.478563.3.579.2.462 Unknown [id number] 2.16.840.1.175590.3.579.2.462 Unknown [id number] 2.16.840.1.782448.3.579.2.462 Unknown [id number] 2.16.840.1.023260.3.579.2.462 Unknown [id number] 2.16.840.1.527851.3.579.2.462 Unknown [id number] 2.16.840.1.787123.3.579.2.462 Unknown [id number] 2.16.840.1.723428.3.579.2.462 Unknown [id number] 2.16.840.1.735687.3.579.2.462 Unknown [id number] 2.16.840.1.127172.3.579.2.462 Unknown [id number] 2.16.840.1.869208.3.579.2.462 Unknown [id number] 2.16.840.1.668905.3.579.2.462 Unknown [id number] 2.16.840.1.058559.3.579.2.462 Unknown [id number] 2.16.840.1.772182.3.579.2.462 Unknown [id number] 2.16.840.1.322922.3.579.2.462 Unknown [id number] 2.16.840.1.253322.3.579.2.462 Unknown [id number] 2.16.840.1.846043.3.579.2.462 Unknown [id number] 2.16.840.1.235016.3.579.2.462 Social History Date Type Detail Facility Tobacco smoking stat us DEIS Unknown if ever smoked [facility] Start: 1960 Sex Assigned At Not on file O [facility] Start: 09-06-2018 End: 03-29-2023 Heavy tobacco smoker (finding) [facility] Comment on above: No smoke exposure Start: 1960 Sex Assigned At Male A [facility] Start: 05-04-2021 End: 05-11-2023 Tobacco smoking status [facility]IS [facility] Start: 09-08-2019 Heavy Andres [facility] Start: 09-08-2019 None [place] [facility] Start: 06-07-2018 Alone [place] [facility] Start: 05-11-2020 Cigarettes [facility] Start: 08-09-2023 End: 11-15-2023 Tobacco smoking status NHIS Smokes tobacco daily [facility] Start: 02-08-2023 End: 03-09-2016 History of tobacco use Cigarette Smoker [facility] Start: 08-09-2023 End: 10-18-2024 Cigarettes smoked current (pack per day) - Reported 0.5 [facility] Start: 08-09-2023 End: 11-15-2023 Tobacco use and exposure Smokeless tobacco non-user [facility] Start: 08-09-2023 End: 04-12-2024 Alcohol intake Current drinker of alcohol (finding) [facility] Start: 08-09-2023 End: 10-18-2024 Tobacco use panel [facility] Start: 03-09-2016 Adult Depression Screening Assessment 0 [facility] Start: 10-14-2023 [facility] Start: 11-15-2023 Tobacco Comment Pt smoked 1 pa ck daily for x 40 years, pt has cut back to 1 pack per week x 1 year [facility] Start: 11-24-2018 Sex Male (finding) [facility] Start: 08-28-2024 End: 10-12-2024 Tobacco smoking status NHIS Current Light tobacco smoker [facility] (I/We) worried wheth er (my/our) food would run out before (I/we) got money to buy more. Never true [facility] Work Phone: In the past 12 month s, was there a time when you were not able to pay the mortgage or rent on time? No [facility] Medical Equipment Procedure Code Equipment Code Equipment Original Text Equipment Identifier Dates Blood Glucose Te st Strips Start: 04-04-[address]ps Start: 04-04-[address]ps Start: 05-02-2021 Lancets Start: 05-02-2021 See Instructions , One Touch Ultra Blue Testi Strips 1 bottle of 100 Use 1 strip to test BS TID, # 100 EA, 11 Refill(s), Pharmacy: [facility], 180.3, cm, 02/14/21 8:43:00 EST, Height, 73.3, kg, 02/14/21 8:43:00 EST, Dosing Weight Start: 04-04-2021 See Instructions , 1 bottle of 100- PATIENT TESTS 2-3 TIMES PER DAY, # 1 EA, 11 Refill(s), Pharmacy: [facility], 176.5, cm, 05/02/21 11:34:00 EDT, Height, 73.2, kg, 05/02/21 13:04:00 EDT, Dosing Weight Start: 05-02-2021 See Instructions , qs 1 month supply-PATIENT TESTS 2-3 TIMES PER DAY, # 1 EA, 11 Refill(s), Pharmacy: [facility], 176.5, cm, 05/02/21 11:34:00 EDT, Height, 73.2, kg, 05/02/21 13:04:00 EDT, Dosing Weight Start: 05-02-2021 ONE TOUCH ULTRA BLUE TEST STRP, See Instructions, USE 1 STRIP THREE TIMES A DAY TO TEST BLOOD SUGAR, # 100 strip, 11 Refill(s), Pharmacy: [facility] [id number], 180.3, cm, 04/13/19 10:19:00 EST, Height, 81.7, [...] TID, # 100 EA, 11 Refill(s), Pharmacy: [facility], 180.3, cm, 02/14/21 8:43:00 EST, Height, 73.3, kg, 02/14/21 8:43:00 EST, Dosing Weight Start: 04-04-2021 See Instructions , 1 bottle of 100- PATIENT TESTS 2-3 TIMES PER DAY, # 1 EA, 0 Refill(s), Pharmacy: [facility], 176.5, cm, 12/23/21 10:15:00 EST, Height, 68.2, kg, 12/23/21 10:15:00 EST, Dosing Weight Start: 04-09-2022 See Instructions , qs 1 month supply-PATIENT TESTS 2-3 TIMES PER DAY, # 1 EA, 0 Refill(s), Pharmacy: [facility], 176.5, cm, 12/23/21 10:15:00 EST, Height, 68.2, kg, 12/23/21 10:15:00 EST, Dosing Weight Start: 04-09-2022 ONE TOUCH ULTRA BLUE TEST STRP, See Instructions, USE 1 STRIP THREE TIMES A DAY TO TEST BLOOD SUGAR, # 100 strip, 11 Refill(s), Pharmacy: [facility] [id number], 180.3, cm, 04/13/19 10:19:00 EST, Height, 81.7, [...] TID, # 100 EA, 11 Refill(s), Pharmacy: [facility], 180.3, cm, 02/14/21 8:43:00 EST, Height, 73.3, kg, 02/14/21 8:43:00 EST, Dosing Weight Start: 04-04-2021 See Instructions , 1 bottle of 100- PATIENT TESTS 2-3 TIMES PER DAY, # 1 EA, 0 Refill(s), Pharmacy: [facility], 176.5, cm, 12/23/21 10:15:00 EST, Height, 68.2, kg, 12/23/21 10:15:00 EST, Dosing Weight Start: 04-09-2022 See Instructions , qs 1 month supply-PATIENT TESTS 2-3 TIMES PER DAY, # 1 EA, 0 Refill(s), Pharmacy: [facility], 176.5, cm, 12/23/21 10:15:00 EST, Height, 68.2, kg, 12/23/21 10:15:00 EST, Dosing Weight Start: 04-09-2022 ONE TOUCH ULTRA BLUE TEST STRP, See Instructions, USE 1 STRIP THREE TIMES A DAY TO TEST BLOOD SUGAR, # 100 strip, 11 Refill(s), Pharmacy: [facility] [address], 180.3, cm, 04/13/19 10:19:00 EST, Height, 81.7, [...] TID, # 100 EA, 11 Refill(s), Pharmacy: [facility], 180.3, cm, 02/14/21 8:43:00 EST, Height, 73.3, kg, 02/14/21 8:43:00 EST, Dosing Weight Start: 04-04-2021 See Instructions , 1 bottle of 100- PATIENT TESTS 2-3 TIMES PER DAY, # 1 EA, 0 Refill(s), Pharmacy: [facility], 176.5, cm, 12/23/21 10:15:00 EST, Height, 68.2, kg, 12/23/21 10:15:00 EST, Dosing Weight Start: 04-09-2022 See Instructions , qs 1 month supply-PATIENT TESTS 2-3 TIMES PER DAY, # 1 EA, 0 Refill(s), Pharmacy: [facility], 176.5, cm, 12/23/21 10:15:00 EST, Height, 68.2, kg, 12/23/21 10:15:00 EST, Dosing Weight Start: 04-09-2022 ONE TOUCH ULTRA BLUE TEST STRP, See Instructions, USE 1 STRIP THREE TIMES A DAY TO TEST BLOOD SUGAR, # 100 strip, 11 Refill(s), Pharmacy: [facility] [address], 180.3, cm, 04/13/19 10:19:00 EST, Height, 81.7, [...] TID, # 100 EA, 11 Refill(s), Pharmacy: [facility], 180.3, cm, 02/14/21 8:43:00 EST, Height, 73.3, kg, 02/14/21 8:43:00 EST, Dosing Weight Start: 04-04-2021 See Instructions , 1 bottle of 100- PATIENT TESTS 2-3 TIMES PER DAY, # 1 EA, 0 Refill(s), Pharmacy: [facility], 176.5, cm, 12/23/21 10:15:00 EST, Height, 68.2, kg, 12/23/21 10:15:00 EST, Dosing Weight Start: 04-09-2022 See Instructions , qs 1 month supply-PATIENT TESTS 2-3 TIMES PER DAY, # 1 EA, 0 Refill(s), Pharmacy: [facility], 176.5, cm, 12/23/21 10:15:00 EST, Height, 68.2, kg, 12/23/21 10:15:00 EST, Dosing Weight Start: 04-09-2022 ONE TOUCH ULTRA BLUE TEST STRP, See Instructions, USE 1 STRIP THREE TIMES A DAY TO TEST BLOOD SUGAR, # 100 strip, 11 Refill(s), Pharmacy: [id number], 180.3, cm, 04/13/19 10:19:00 EST, Height, 81.7, [...] TID, # 100 EA, 11 Refill(s), Pharmacy: [facility], 180.3, cm, 02/14/21 8:43:00 EST, Height, 73.3, kg, 02/14/21 8:43:00 EST, Dosing Weight Start: 04-04-2021 See Instructions , 1 bottle of 100- PATIENT TESTS 2-3 TIMES PER DAY, # 1 EA, 0 Refill(s), Pharmacy: [facility], 176.5, cm, 12/23/21 10:15:00 EST, Height, 68.2, kg, 12/23/21 10:15:00 EST, Dosing Weight Start: 04-09-2022 See Instructions , qs 1 month supply-PATIENT TESTS 2-3 TIMES PER DAY, # 1 EA, 0 Refill(s), Pharmacy: [facility], 176.5, cm, 12/23/21 10:15:00 EST, Height, 68.2, kg, 12/23/21 10:15:00 EST, Dosing Weight Start: 04-09-2022 ONE TOUCH ULTRA BLUE TEST STRP, See Instructions, USE 1 STRIP THREE TIMES A DAY TO TEST BLOOD SUGAR, # 100 strip, 11 Refill(s), Pharmacy: [facility] [address], 180.3, cm, 04/13/19 10:19:00 EST, Height, 81.7, [...] TID, # 100 EA, 11 Refill(s), Pharmacy: [facility], 180.3, cm, 02/14/21 8:43:00 EST, Height, 73.3, kg, 02/14/21 8:43:00 EST, Dosing Weight Start: 04-04-2021 See Instructions , 1 bottle of 100- PATIENT TESTS 2-3 TIMES PER DAY, # 1 EA, 0 Refill(s), Pharmacy: [facility], 176.5, cm, 12/23/21 10:15:00 EST, Height, 68.2, kg, 12/23/21 10:15:00 EST, Dosing Weight Start: 04-09-2022 See Instructions , qs 1 month supply-PATIENT TESTS 2-3 TIMES PER DAY, # 1 EA, 0 Refill(s), Pharmacy: [facility], 176.5, cm, 12/23/21 10:15:00 EST, Height, 68.2, kg, 12/23/21 10:15:00 EST, Dosing Weight Start: 04-09-2022 See Instructions , One Touch Ultra Blue Testi Strips 1 bottle of 100 Use 1 strip to test BS TID, # 100 EA, 11 Refill(s), Pharmacy: [facility], 180.3, cm, 02/14/21 8:43:00 EST, Height, 73.3, kg, 02/14/21 8:43:00 EST, Dosing Weight Start: 04-04-2021 See Instructions , 1 bottle of 100- PATIENT TESTS 2-3 TIMES PER DAY, # 1 EA, 0 Refill(s), Pharmacy: [facility], 176.5, cm, 12/23/21 10:15:00 EST, Height, 68.2, kg, 12/23/21 10:15:00 EST, Dosing Weight Start: 04-09-2022 See Instructions , qs 1 month supply-PATIENT TESTS 2-3 TIMES PER DAY, # 1 EA, 0 Refill(s), Pharmacy: [facility], 176.5, cm, 12/23/21 10:15:00 EST, Height, 68.2, kg, 12/23/21 10:15:00 EST, Dosing Weight Start: 04-09-2022 Graft Gelweave 2 8mm Straight Gelatin Polyester Woven 30cm Cardiovascular - [id number] Start: 03-19-2016 Graft Gelweave V alsalva Vascutek 36mm 28mm Gelatin Woven 15cm 28mm - [id number] Start: 03-19-2016 Century Thk1.65mm P tfe 4x.5in Cardiovascular Sterile - [id number] Start: 03-19-2016 Graft Gelweave 8 mm Straight Gelatin Polyester Woven 30cm Cardiovascular - [id number] Start: 03-19-2016 Patch Thk.2-.4mm Bovine Pericardium Encap 14x9cm Cardiovascular Soft - [id number] Start: 03-19-2016 Valve Aort 23mm Crp-Ed Thfx - [id number] Start: 03-19-2016 [id number] Start: 03-28-2016 End: 11-26-2023 See Instructions , One Touch Ultra Blue Testi Strips 1 bottle of 100 Use 1 strip to test BS TID, # 100 EA, 11 Refill(s), Pharmacy: [facility], 180.3, cm, 02/14/21 8:43:00 EST, Height, 73.3, kg, 02/14/21 8:43:00 EST, Dosing Weight Start: 04-04-2021 See Instructions , 1 bottle of 100- PATIENT TESTS 2-3 TIMES PER DAY, # 1 EA, 0 Refill(s), Pharmacy: [facility], 176.5, cm, 12/23/21 10:15:00 EST, Height, 68.2, kg, 12/23/21 10:15:00 EST, Dosing Weight Start: 04-09-2022 See Instructions , qs 1 month supply-PATIENT TESTS 2-3 TIMES PER DAY, # 1 EA, 0 Refill(s), Pharmacy: [facility], 176.5, cm, 12/23/21 10:15:00 EST, Height, 68.2, kg, 12/23/21 10:15:00 EST, Dosing Weight Start: 04-09-2022 1 Each three wilbur es a day. [id number] Start: 11-26-2023 End: 02-21-2024 USE ONE 3 TIMES DAILY [id number] Sta rt: 02-21-2024 See Instructions , One Touch Ultra Blue Testi Strips 1 bottle of 100 Use 1 strip to test BS TID, # 100 EA, 11 Refill(s), Pharmacy: [facility], 180.3, cm, 02/14/21 8:43:00 EST, Height, 73.3, kg, 02/14/21 8:43:00 EST, Dosing Weight Start: 04-04-2021 See Instructions , 1 bottle of 100- PATIENT TESTS 2-3 TIMES PER DAY, # 1 EA, 0 Refill(s), Pharmacy: [facility], 176.5, cm, 12/23/21 10:15:00 EST, Height, 68.2, kg, 12/23/21 10:15:00 EST, Dosing Weight Start: 04-09-2022 See Instructions , qs 1 month supply-PATIENT TESTS 2-3 TIMES PER DAY, # 1 EA, 0 Refill(s), Pharmacy: [facility], 176.5, cm, 12/23/21 10:15:00 EST, Height, 68.2, kg, 12/23/21 10:15:00 EST, Dosing Weight Start: 04-09-2022 USE 3 TIMES DAILY [id number] Start: 05-31-[id number] Newsome [id number] Start: 06-25-2016 Device Angio-Sea l Vip 6fr .035in Collagen 70cm Closure Valuelink Guidewire - [id number] Start: 10-23-2024 Valve Benjamin 3 U ltra Resilia Commander Rojas 23mm Aortic Transcatheter - [id number] Start: 10-23-2024 Goals Date Patient Goal Desired Activity /State Personal health goal Personal health goal Personal health goal Functional Status Date Assessment Result Facility 09-04-2024 Functional status Ambulates [facility] Work Phone: 08-03-2024 Functional status Ambulates [facility] Work Phone: 07-14-2024 Functional status Ambulates;Up ad [place] [facility] Work Phone: 07-06-2024 Functional status Ambulates [facility] Work Phone: 06-28-2024 Functional status Ambulates;Bath room Privilege [facility] Work Phone: 10-30-2023 Functional [facility] Functional Status Standard Safet y ID band on, Call device within reach, Bed in low position, Wheels locked, Upper/Half-Length side-rails up, personal items within reach, Bedside Cart Locked, Visitor at bedside [facility] 05-20-2023 Functional status Ambulates [facility] Work Phone: 04-27-2023 Functional status Chair [facility] Work Phone: 03-19-2023 Functional Status Room check performed [facility] 03-19-2023 Functional Status 100 [facility] 03-19-2023 Functional Status [facility] 03-19-2023 Functional Status 3am-7am [facility] 03-19-2023 Functional Status [facility] 03-19-2023 [facility] Functional Status [facility] 03-18-2023 Functional Status Dinner Percent 75 [facility] 03-18-2023 Functional Status Activity Yu tance One assist [facility] 03-18-2023 Functional Status [facility] 03-18-2023 Functional Status Morning Snack Percent 1 00 [facility] 03-18-2023 [facility] Functional Status [facility] 03-18-2023 Functional Status [facility] 03-18-2023 Functional Status [facility] 03-17-2023 Functional Status bilateral knee high removed/off [facility] 03-17-2023 Functional Status 100 [facility] 03-17-2023 Functional Status Done [facility] 03-17-2023 Functional Status [facility] 03-16-2023 Functional Status [facility] 03-16-2023 Functional Status [facility] 03-16-2023 Functional Status [facility] 03-16-2023 Functional Status Mobile home [facility] 03-15-2023 Functional Status [facility] 10-05-2022 Functional Status ID band on, Call device within reach, Bed in low position, Wheels locked, Upper/Half-Length side-rails up [facility] 05-13-2022 Functional Status Independent [facility] 03-24-2022 Functional status Ambulates [facility] Work Phone: 02-04-2022 Functional status Ambulates [facility] Work Phone: 11-14-2021 Functional status Up ad haleigh [facility] Work Phone: 11-08-2021 Functional status Ambulates [facility] Work Phone: 11-08-2021 Functional status None [facility] Work Phone: 06-01-2021 Functional status Up ad haleigh [facility] Work Phone: 05-05-2021 Functional status Chair [facility] Work Phone: 03-28-2016 Are you deaf, or do you have serious difficulty hearing No 03/28/2016 4:20 PM Ynes WillisRn)(Hist), RN No [facility] 03-28-2016 Are you blind, or do you have serious difficulty seeing, even when wearing glasses No 03/28/2016 4:20 PM Ynes Willis)(Hist), RN No [facility] 03-28-2016 Do you have serious difficulty walking or climbing stairs No 03/28/2016 4:20 PM Ynes Willis (Rn)(Hist), RN No [facility] 03-28-2016 Do you have difficul ty dressing or bathing No 03/28/2016 4:20 PM Ynes WillisRn)(Hist), RN No [facility] 03-28-2016 Because of a physica l, mental, or emotional condition, do you have difficulty doing errands alone such as visiting a physician's office or shopping No 03/28/2016 4:20 PM Ynes Willis (Rn)(Hist), RN No [facility] Mental Status Date Assessment Result Facility 10-06-2024 Cognitive function Awake;Alert;A ppropriate;Fo llows Commands [facility] Work Phone: 09-04-2024 Cognitive function Voice/Name [facility] Work Phone: 08-03-2024 Cognitive function Voice/Name [facility] Work Phone: 07-14-2024 Cognitive function Voice/Name [facility] Work Phone: 07-06-2024 Cognitive function Voice/Name [facility] Work Phone: 06-28-2024 Cognitive function Voice/Name [facility] [facility] Work Phone: 10-30-2023 Mental Status Orientation Oriented x 4 [facility] 10-30-2023 Mental Status [facility] 05-20-2023 Cognitive function Voice/Name [facility] Work Phone: 04-27-2023 Cognitive function Voice/Name [facility] Work Phone: 03-19-2023 Mental Status Oriented x 4 [facility] 03-19-2023 Mental Status [facility] 03-18-2023 Mental Status [facility] 03-18-2023 Mental Status [facility] 10-05-2022 Mental Status Orientation Oriented x 4 [facility] 07-20-2022 Cognitive function Level Of Cons ciousness Awake;Alert;Follows Commands [facility] Work Phone: 05-13-2022 Mental Status Orientation Oriented x 4 [facility] 05-13-2022 Mental Status [facility] 03-24-2022 Cognitive function Appropriate [facility] Work Phone: 02-04-2022 Cognitive function Voice/Name [facility] Work Phone: 02-01-2022 Cognitive function Level Of Cons ciousness Awake;Alert;Appropriate;Fo llows Commands [facility] Work Phone: 11-13-2021 Cognitive function Voice/Name [facility] Work Phone: 11-08-2021 Cognitive function Voice/Name [facility] Work Phone: 09-30-2021 Cognitive function Level Of Cons ciousness Awake;Alert;Appropriate;Fo llows Commands [facility] Work Phone: 06-01-2021 Cognitive function Voice/Name [facility] Work Phone: 05-04-2021 Cognitive function Voice/Name [facility] Work Phone: 05-04-2021 Cognitive function Level Of Cons ciousness Awake;Alert;Appropriate [facility] Work Phone: 03-28-2016 Because of a physica l, mental, or emotional condition, do you have serious difficulty concentrating, remembering, or making decisions No 03/28/2016 4:20 PM Ynes Willis (Rn)(Hist), RN No [facility] Clinical Notes 05-02-2021 to 10-26-2024 Talia Serrano APRN.ACCOUNT SUPPORT ASSOCIATE - 10/23/2024 1:00 PM Talia Mcclelland APRN.ACCOUNT SUPPORT ASSOCIATE - 10/20/2024 3:41 PM EDT Note Date & Type Note Facility 10-26-2024 Note [facility] 10-26-2024 Note [facility] 10-26-2024 Note [facility] 10-25-2024 Note [facility] 10-25-2024 Note [facility] 10-25-2024 Note [facility] 10-25-2024 Note [facility] 10-24-2024 Note [facility] 10-24-2024 Note [facility] 10-24-2024 Note [facility] 10-23-2024 Note [facility] 10-23-2024 Note [facility] 10-23-2024 History of Present illness Narrative Heart and Vascular [facility] Department of Cardiovascular Medicine SECTION [...] Talia Serrano APRN.STEPHANIE documented in this encounter [facility] 10-23-2024 Note [facility] 10-22-2024 Note [facility] 10-21-2024 Note [facility] 10-21-2024 Note HNO ID: [id number] Author: NOTE, INTERFACE, ? Service: ? Author Type: ? Type: Progress Notes Filed: 10/23/2024 09:18 Note Text: Epic Scheduled Downtime: 10/21/2024 1:00:00 AM to 10/21/2024 2:06:36 AM [facility] 10-20-2024 Note [facility] 10-20-2024 History of Present illness Narrative I [...] completed 15 Ft W: completed Talia Serrano APRN.[facility], Please schedule Analilia Melendrez, [phone] for COMMERCIAL TF- TAVR V-I-V S3 Procedure on: 10/23/2024 Patient is inpatient and will remain until the procedure is completed Please place Structural lab schedule on : 10/23/2024 at 10AM CPT Code: 98852 DX code: T82.01XA HOUSE VISITOR: Dr. Penn Performing Physician: Dr. Penn OR: 81 Surgeon: Dr. Barragan Please schedule bed reservation for post procedure-(should be a TCI) ALBERT schedule- intra/op Patient also needs INSURANCE PRECERTIFICATION ADL SCORE 6__ SURVIVAL RATE GREATER THAN 1 YEAR____Y___(LOOKING FOR A YES) EF ___25__(GREATER THAN 50%) Thank you. Request sent to scheduling. Talia Serrano APRN.ACCOUNT SUPPORT ASSOCIATE documented in this encounter [facility] 10-20-2024 Note [facility] 10-20-2024 Note [facility] 10-20-2024 Note [facility] 10-19-2024 Note [facility] 10-19-2024 Note [facility] 10-18-2024 Note [facility] 10-18-2024 Note [facility] 10-18-2024 Note [facility] 10-18-2024 Note [facility] 10-12-2024 Discharge summary Note Date/Time October 12, 2024 3:33pm [facility] Medical Records Department [address] [place] [address] Emergency Department Summary 10/12/24 MR#: [id number] Acct: [id number] Name: ANALILIA MELENDREZ Rep #:[id number] : 1960 64 From: Perez Ribeiro DO [...] travels denies any history of blood clots. [facility] Medical History Chronic pancreatitis Chronic pancreatitis due [...] #60 tabs 08/03/24 Unknown Rx tablet (Entresto) uttnhh-bpjhqqgi-odwalte 1 cap PO BIDCM 08/29/24 Unkn own [...] Neurological: Patient commands that he was at [facility] years 2024 Skin: Warm, dry, intact no [...] % (Auto) 65.8 Lymph % (Auto) 20.8 Turner % (Auto) 9.5 Eos % (Auto) 1.5 [...] 4Hr 83 H* [place] [address] H Radiography Diagnostic Testing: Clinical Impression(s) from Imaging Studies Chest X-Ray 10/12/24 10:15 IMPRESSION: Bilateral pleural effusions right greater than left as described with bibasilar compressive atelectasis. [id number] Ab[facility]/Pelvis CT 10/12/24 13:10 IMPRESSION: Bilateral pleural effusions right greater than left with dependent bibasilar atelectasis. Diffuse pancreatic calcification in keeping with chronic pancreatitis. Pancreatic atrophy. Fatty infiltration of the liver. Stable aneurysmal dilatation of the ascending thoracic aorta. Small umbilical hernia containing fat. Reading Location: [id number] Discharge Plan Triage Chief Complaint: Shortness of [...] DO [Primary Care Provider] - Print Language: Comoran Disposition Disposition: Acute Care Hospital [facility] What to do if you have Problems For any increased pain, shortness of breath, bleeding, nausea or vomiting, chestpain, or any unexpected problems, contact your Primary Care Provider. Call [facility] ([phone]) or report to the closest Emergency Room. Call 911 if necessary. 10/12/24 1533 <Electronically signed by Perez Ribeiro DO> Cosigner Signature (if applicable): CC: Sigrid Call DO ~ Signed [facility] Work Phone: 1(159) 659-317309-04-2025 Radiology Diagnostic study [facility]09-04-2025 Radiology Diagnostic study [facility]08-29-2025 Radiology Diagnostic study [facility] 08-28-2024 Radiology Diagnostic study [facility]07-21-2025 Discharge summary Author Vinh Lomeli [facility] Note Date/Time August 28, 2024 11:4 4pm [facility] Medical Records Department [address] [place] [address] Emergency Department Summary 08/28/24 MR#: [id number] Acct: [id number] Name: ANALILIA MELENDREZ Rep #:[id number] : 1960 64 From: Vinh Lomeli MD [...] history of anemia, ascites, alcohol abuse, pancreatitis, MA, diabetes and aortic valve replaced by bovine [...] reflux #60 tabs 06/27/23 07/31/24 Rx release qsrlkd-tpauqbkh-ihdefkl 1 cap PO TIDCM #90 caps 06/0907/31/24 [...] % (Auto) 68.3 Lymph % (Auto) 21.3 Turner % (Auto) 7.6 Eos % (Auto) 1.4 [...] Clarity Clear Urine pH 7.0 Ur Specific [place] 1.010 Urine Protein Negative Urine Glucose (UA) [...] (Auto) Neut % (Auto) Lymph % (Auto) Turner % (Auto) Eos % (Auto) Baso % (Auto) Absolute Neuts (auto) Absolute Lymphs (auto) Nucleated RBC % D-Dimer Quant (PE/DVT) Sodium Potassium Chloride Carbon Dioxide Anion Gap BUN Creatinine Estim Creat Clear Calc Est GFR (MDRD) Non-Af BUN/Creatinine Ratio Glucose Calcium Troponin T High Sens Troponin T Hi Sens 2 Hr 57 H* Urine Color Urine Clarity Urine pH Ur Specific [place] Urine Protein Urine Glucose (UA) Urine Ketones [...] pneumonia. 2. Bilateral pleural effusions. Reading Location: [facility] Chest x-ray, 2 views, AP and lateral, noted by myself and radiologist. Prior sternotomy. Left-sided pacemaker. Bilateral moderate-sized pleural effusions. Rhythm Strip Rhythm Strip: Paced Rate: 108 Ectopy: None EKG Initial EKG: Attestation: I personally reviewed and interpreted this EKG as follows: Interpretation: Paced Comments: Paced rhythm 108 no acute signs of MA or ischemia. Discharge Plan Triage Chief Complaint: [...] Call, [Primary Care Provider] - Print Language: Comoran What to do if you have Problems For any increased pain, shortness of breath, bleeding, nausea or vomiting, chestpain, or any unexpected problems, contact your Primary Care Provider. Call [facility] ([phone]) or report to the closest Emergency Room. Call 911 if necessary. 08/28/24 2344 <Electronically signed by Vinh Lomeli MD> Cosigner Signature (if applicable): CC: Sigrid Call DO ~ Signed [facility] Work Phone: 1(581) 985-803907-07-2025 Telephone encounter Note* Telephone Encounter - Suzi Haynes MA - 08/14/2024 11:56 AM EDT Patient transferred out of [facility]. Suzi Haynes MA [facility]07-07-2025 Miscellaneous Notes* Telephone Encounter - Suzi Haynes MA - 08/14/2024 11:56 AM EDT Patient transferred out of [facility]. Suzi Haynes MA [facility] Telephone encounter Note * Telephone Encounter - Suzi Haynes MA - 08/04/2024 8:12 AM EDT [facility]06-27-2025 Miscellaneous Notes* Telephone Encounter - Suzi Haynes MA - 08/04/2024 8:12 AM EDT [facility] Discharge summary Author Valeriy [facility] Note Date/Time August 03, 2024 12:1 6pm [facility] Medical Records Department [address] [place] [address] Discharge Summary 08/03/24 1206 MR#: [id number] Acct: [id number] Name: ANALILIA MELENDREZ Rep #:[id number] : 1960 64 From: Valeriy Connell DO PCP: Sigrid Call DO Status:ADM IN Location: [facility] [id number] Providers Date of Admission: 08/01/24 Primary [...] mg PO BID reflux #60 tabs 06/27/23 opnrws-fejgtqdf-gwkhjhv 24,000-76,000-120,000 unit capsule,delayed rel (Creon) 1cap PO [...] Do recommend that he do follow-up with [facility]. Do recommend that he follow-up with cardiologyand [...] % (Auto) 64.5, Lymph % (Auto) 21.3, Turner % (Auto) 10.6 H, Eos % (Auto) [...] Valeriy Connell Primary Care Provider: Sigrid Call [facility] Consulting Providers: Iman Aguayo; Valeriy Ross Instructions [...] Qty: 60 2RF Referrals / Follow Up: [facility] [Provider Group] - Within 1 Month [facility] [Provider Group] - Within 1 Month Sigrid Call DO [Primary Care Provider] - Within 2 Weeks Disposition Disposition (needs filled in before D/C Order can be placed): Home, Self Care Charges/Coding Visit Charges Inpatient E&M: 84589 Disch Hosp >30min 08/03/24 1216 <Electronically signed by Valeriy Connell DO> Cosigner Signature (if applicable): CC: Dr. Valeriy Connell DO; Sigrid Call DO~ Signed [facility] Work Phone: 1(749) 246-236306-26-2025 Progress note Author Valeriy Connell [facility] Note Date/Time August 03, 2024 12:0 6pm [facility] Medical Records Department [address] [place] [address] Progress Note - Hospitalist 08/03/24 0742 MR#: [id number] Acct: [id number] Name: ANALILIA MELENDREZ Rep #:[id number] : 1960 64 From: Valeriy Connell DO PCP: Sigrid Call DO Status:ADM IN Location: [place] [address]- 1 Reason for Visit Reason for Visit: [...] % (Auto) 64.5, Lymph % (Auto) 21.3, Turner % (Auto) 10.6 H, Eos % (Auto) [...] Cosigner Signature (if applicable): CC: ~ Signed [facility] Work Phone: 1(272) 949-435506-26-2025 Progress note Author Iman Aguayo [facility] Note Date/Time August 03, 2024 6:[address] [facility] Medical Records Department [address] [place] [address] Progress Note - Hospitalist 08/03/24 0639 MR#: [id number] Acct: [id number] Name: ANALILIA MELENDREZ Rep #:[id number] : 1960 64 From: Iman Aguayo MD PCP: Sigrid Call DO Status:ADM IN Location: [place] [address] Hospitalist Note PCP contacted hospital to discuss patient as they are having difficulties setting up follow-up with specialists as he is constantly being admitted and hasnot had follow-up for some time. She is requesting if able to add referral at discharge for gastroenterology and cardiology if possible. 08/03/24 0640 <Electronically signed by Iman Aguayo MD> Cosigner Signature (if applicable): CC: ~ Signed [facility] Work Phone: 1(462) 787-214106-25-2025 Consult note Author Suyapa Bustos [facility] Note Date/Time August 02, 2024 6:19 pm [facility] Medical Records Department [address] [place] [address] Consultation - Surgical 08/02/24 1712 MR#: [id number] Acct: [id number] Name: ANALILIA MELENDREZ Rep #:[id number] : 1960 64 From: Suyapa BALDERAS PCP: Sigrid Call DO Status:ADM IN Location: [place] [id number]- [id number] Assessment & Plan Assessment/Plan (1) H/O [...] is a 64 M who presented to [facility] ER on 08/01/24 increased edema and SOB [...] bioprosthetic aortic valve replacement around 2017 at [facility]. He denies any chest pain today. He reports his SOB is much better, he is overall feeling much better than yesterday. [facility] Medical History Malnutrition Pancytopenia Medically noncompliant [...] reflux #60 tabs 06/27/23 07/31/24 Rx release ydnlmr-itkwjifl-elwbmdp 1 cap PO TIDCM #90 caps 06/0907/31/24 [...] (Auto) 64.6, Lymph % (Auto) 18.5 L, Turner % (Auto) 12.9 H, Eos % (Auto) [...] aorta measures 4.0 cm in diameter. 3. Aivrlxst-rg-vpelv pleural effusions bilaterally, slightly increased comparedto CT on 07/11/2024. Bibasilar consolidation may represent compressive atelectasis, though infection could appear similar. ABDOMEN AND PELVIS: 1. Mucosal hyperenhancement with mild wall thickening involving the stomach through jejunum, as may be seen with gastroenteritis, which could be of infectious, inflammatory, or ischemic etiology. 2. Hepatic steatosis. Reading Location: [id number]-M Chest CTA 08/01/24 16:40 IMPRESSION: CHEST: 1. No evidence of pulmonary embolism. 2. Tiny linear hypodensity at the aortic arch, possibly artifactual related to motion or blood flow, though dissection could appear similar. Consider Vascular Surgery consultation. Repeat imaging could be performed with ECG gating. Of note, the ascending thoracic aorta measures 4.0 cm in diameter. 3. Hwapikmn-gn-wlszh pleural effusions bilaterally, slightly increased comparedto CT on 07/11/2024. Bibasilar consolidation may represent compressive atelectasis, though infection could appear similar. ABDOMEN AND PELVIS: 1. Mucosal hyperenhancement with mild wall thickening involving the stomach through jejunum, as may be seen with gastroenteritis, which could be of infectious, inflammatory, or ischemic etiology. 2. Hepatic steatosis. Reading Location: [id number] Charges/Coding Visit Charges Inpatient E&M: 72214 Init Hosp L1 08/02/24 172 <Electronically signed by Suyapa BALDERAS> Cosigner Signature (if applicable): 08/02/24 1819 <Electronically signed by Valeriy Ross MD> CC: Sigrid Call DO~ Signed [facility] Work Phone: 1(743) 857-954006-25-2025 Progress note Author Valeriy Connell [facility] Note Date/Time August 02, 2024 3:00 pm [facility] Medical Records Department [address] [place] [address] Progress Note - Hospitalist 08/02/24 0744 MR#: [id number] Acct: [id number] Name: ANALILIA MELENDREZ Rep #:[id number] : 1960 64 From: Valeriy Connell DO PCP: Sigrid Call DO Status:ADM IN Location: [place] [id number]- [id number] Reason for Visit Reason for Visit: [...] 73.3 H, Lymph % (Auto) 16.1 L, Turner % (Auto) 8.0, Eos % (Auto) 0.9, [...] 20, Alkaline Phosphatase 121,[place] [address] H, Total Protein 6.3, Albumin 3.0 L, [...] (Auto) 64.6, Lymph % (Auto) 18.5 L, Turner % (Auto) 12.9 H, Eos % (Auto) [...] within the left lower lobe. Reading Location: [facility] Abdomen/Pelvis CT 08/01/24 16:40 IMPRESSION: CHEST: 1. No evidence of pulmonary embolism. 2. Tiny linear hypodensity at the aortic arch, possibly artifactual related to motion or blood flow, though dissection could appear similar. Consider Vascular Surgery consultation. Repeat imaging could be performed with ECG gating. Of note, the ascending thoracic aorta measures 4.0 cm in diameter. 3. Qkcfhyay-no-tsnto pleural effusions bilaterally, slightly increased comparedto CT on 07/11/2024. Bibasilar consolidation may represent compressive atelectasis, though infection could appear similar. ABDOMEN AND PELVIS: 1. Mucosal hyperenhancement with mild wall thickening involving the stomach through jejunum, as may be seen with gastroenteritis, which could be of infectious, inflammatory, or ischemic etiology. 2. Hepatic steatosis. Reading Location: [id number]-X Chest CTA 08/01/24 16:40 IMPRESSION: CHEST: 1. No evidence of pulmonary embolism. 2. Tiny linear hypodensity at the aortic arch, possibly artifactual related to motion or blood flow, though dissection could appear similar. Consider Vascular Surgery consultation. Repeat imaging could be performed with ECG gating. Of note, the ascending thoracic aorta measures 4.0 cm in diameter. 3. Gobbbpvn-vy-hjuvh pleural effusions bilaterally, slightly increased comparedto CT on 07/11/2024. Bibasilar consolidation may represent compressive atelectasis, though infection could appear similar. ABDOMEN AND PELVIS: 1. Mucosal hyperenhancement with mild wall thickening involving the stomach through jejunum, as may be seen with gastroenteritis, which could be of infectious, inflammatory, or ischemic etiology. 2. Hepatic steatosis. Reading Location: XFY-[id number]-C Rhythm Strip Rhythm Strip: Sinus Rhythm Rate: [...] CAT scan. Charges/Coding Visit Charges Inpatient E&M: 57838 Subs Hosp L3 08/02/24 1500 <Electronically signed by Valeriy Connell DO> Cosigner Signature (if applicable): CC: ~ Signed [facility] Work Phone: 1(870) 445-515706-25-2025 History and physical note Author Iman Aguayo [facility] Note Date/Time August 02, 2024 2:[address] [facility] Medical Records Department [address] [place] [address] H&P Exam - Hospitalist 08/01/242043 MR#: [id number] Acct: [id number] Name: ANALILIA MELENDREZ Rep #:[id number] : 1960 64 From: Iman Aguayo MD PCP: Sigrid Call DO Status:ADM IN Location: [facility] [id number]- 1 HPI - General General Date of [...] GERD, Tobacco use who presents to the [facility] ED on 08/02/2024with history of 3 days [...] physician did discuss case at length with [facility] who reviewed imaging and noted that the [...] 1, labetalol 10 mg IV x 1. [facility] Medical History Malnutrition Pancytopenia Medically noncompliant [...] reflux #60 tabs 06/27/23 07/31/24 Rx release lxkrab-lughtaxs-rmbumec 1 cap PO TIDCM #90 caps 06/0907/31/24 [...] 73.3 H, Lymph % (Auto) 16.1 L, Turner % (Auto) 8.0, Eos % (Auto) 0.9, [...] Alkaline Phosphatase 121, [place] [address] H, Total Protein 6.3, Albumin 3.0 L, Globulin 3.3, Albumin/Globulin Ratio 0.9, Lipase 9 L Imaging Radiology Impression Chest X-Ray 08/01/24 15:30 IMPRESSION: Mild bibasilar pleural effusions. Bilateral lower lobe opacities not excluded with residual opacity within the left lower lobe. Reading Location: [id number]-LQXNOE-OY Abdomen/Pelvis CT 08/01/24 16:40 IMPRESSION: CHEST: 1. No evidence of pulmonary embolism. 2. Tiny linear hypodensity at the aortic arch, possibly artifactual related to motion or blood flow, though dissection could appear similar. Consider Vascular Surgery consultation. Repeat imaging could be performed with ECG gating. Of note, the ascending thoracic aorta measures 4.0 cm in diameter. 3. Beazdccz-qx-cmkei pleural effusions bilaterally, slightly increased comparedto CT on 07/11/2024. Bibasilar consolidation may represent compressive atelectasis, though infection could appear similar. ABDOMEN AND PELVIS: 1. Mucosal hyperenhancement with mild wall thickening involving the stomach through jejunum, as may be seen with gastroenteritis, which could be of infectious, inflammatory, or ischemic etiology. 2. Hepatic steatosis. Reading Location: TPE-XELSSJITY-L Chest CTA 08/01/24 16:40 IMPRESSION: CHEST: 1. No evidence of pulmonary embolism. 2. Tiny linear hypodensity at the aortic arch, possibly artifactual related to motion or blood flow, though dissection could appear similar. Consider Vascular Surgery consultation. Repeat imaging could be performed with ECG gating. Of note, the ascending thoracic aorta measures 4.0 cm in diameter. 3. Fhkfdkyi-lt-tkmbv pleural effusions bilaterally, slightly increased comparedto CT on 07/11/2024. Bibasilar consolidation may represent compressive atelectasis, though infection could appear similar. ABDOMEN AND PELVIS: 1. Mucosal hyperenhancement with mild wall thickening involving the stomach through jejunum, as may be seen with gastroenteritis, which could be of infectious, inflammatory, or ischemic etiology. 2. Hepatic steatosis. Reading Location: [id number] Assessment & Plan Assessment/Plan (1) Acute HFrEF [...] GERD, Tobacco use who presents to the [facility] ED on 08/02/2024with history of 3 days [...] upwith CT surgery/vascular surgery as previously arranged, [facility] reviewed images as noted and findings are [...] prophylaxis: Lovenox. Charges/Coding Visit Charges Inpatient E&M: 37951 Init Hosp L3 06/25/25 0241 <Electronically signed by Iman Aguayo MD> Cosigner Signature (if applicable): CC: Dr. Iman Aguayo MD; Sigrid Call DO~ Signed [facility] Work Phone: 1(883) 238-351506-25-2025 Discharge summary Author Tierney Macdonald [facility] Note Date/Time August 01, 2024 11:0 6pm [facility] Medical Records Department [address] [place] [address] Emergency Department Summary 08/01/24 MR#: [id number] Acct: [id number] Name: ANALILIA MELENDREZ Rep #:[id number] : 1960 64 From: Tierney Rosado PCP: Sigrid Call DO Status:ADM IN Location: [place] [address] HPI History of Present Illness Chief Complaint: [...] to be associated with chronic alcohol use. [facility] Medical History Malnutrition Pancytopenia Medically noncompliant [...] reflux #60 tabs 06/27/23 07/31/24 Rx release ctitpx-pjasmopd-kshnnsr 1 cap PO TIDCM #90 caps 06/0907/31/24 [...] cell count. He has anemia with hemoglobin [place] 0.0 but this is actually significantly improved [...] with cardiothoracic surgery and cardiac fellow at [facility], Dr. Callahan and , who do not [...] 73.3 H Lymph % (Auto) 16.1 L Turner % (Auto) 8.0 Eos % (Auto) 0.9 [...] Alkaline Phosphatase 121 [place] [address] H Total Protein 6.3 Albumin 3.0 L Globulin 3.3 Albumin/Globulin Ratio 0.9 Lipase 9 L Radiography Diagnostic Testing: Clinical Impression(s) from Imaging Studies Chest X-Ray 08/01/24 15:30 IMPRESSION: Mild bibasilar pleural effusions. Bilateral lower lobe opacities not excluded with residual opacity within the left lower lobe. Reading Location: [facility] Abdomen/Pelvis CT 08/01/24 16:40 IMPRESSION: CHEST: 1. No evidence of pulmonary embolism. 2. Tiny linear hypodensity at the aortic arch, possibly artifactual related to motion or blood flow, though dissection could appear similar. Consider Vascular Surgery consultation. Repeat imaging could be performed with ECG gating. Of note, the ascending thoracic aorta measures 4.0 cm in diameter. 3. Wawcmjcr-ko-ymsxf pleural effusions bilaterally, slightly increased comparedto CT on 07/11/2024. Bibasilar consolidation may represent compressive atelectasis, though infection could appear similar. ABDOMEN AND PELVIS: 1. Mucosal hyperenhancement with mild wall thickening involving the stomach through jejunum, as may be seen with gastroenteritis, which could be of infectious, inflammatory, or ischemic etiology. 2. Hepatic steatosis. Reading Location: [facility] Chest CTA 08/01/24 16:40 IMPRESSION: CHEST: 1. No evidence of pulmonary embolism. 2. Tiny linear hypodensity at the aortic arch, possibly artifactual related to motion or blood flow, though dissection could appear similar. Consider Vascular Surgery consultation. Repeat imaging could be performed with ECG gating. Of note, the ascending thoracic aorta measures 4.0 cm in diameter. 3. Vmwfcwrw-nd-pgveo pleural effusions bilaterally, slightly increased comparedto CT on 07/11/2024. Bibasilar consolidation may represent compressive atelectasis, though infection could appear similar. ABDOMEN AND PELVIS: 1. Mucosal hyperenhancement with mild wall thickening involving the stomach through jejunum, as may be seen with gastroenteritis, which could be of infectious, inflammatory, or ischemic etiology. 2. Hepatic steatosis. Reading Location: [facility] Rhythm Strip Rhythm Strip: Sinus Rhythm Rate: 90 Ectopy: PAC(s) EKG Initial EKG: Attestation: I personally reviewed and interpreted this EKG as follows: Interpretation: Sinus Rhythm Comments: Normal sinus rhythm at a rate of 90 bpm with PACs Right bundle izzy block Normal ST segments Normal QRS Mildly prolonged QTc of 521 Compared to prior EKG on 06/25/2024, no significant change attendant Discussion w/another healthcare provider: Hospitalist and [employer] Worker (Cardiothoracic surgery at [facility]) Discharge Plan Dx/Rx/DC Orders Clinical Impression: Acute HFrEF (heart failure with reduced ejection fraction), HTN (hypertension),H/O aortic valve replacement, Pleural effusion Disposition Disposition: Acute Care Hospital [facility] Discharge Date/Time: 08/01/24 21:53 What to do if you have Problems For any increased pain, shortness of breath, bleeding, nausea or vomiting, chestpain, or any unexpected problems, contact your Primary Care Provider. Call Next[facility] Registry ([phone]) or report to the closest Emergency Room. Call 911 if necessary. 08/01/24 9131 <Electronically signed by Tierney Macdonald DO> Cosigner Signature (if applicable): CC: Sigrid Call DO ~ Signed [facility] Work Phone: 1(265) 847-537806-24-2025 Radiology Diagnostic study [facility]06-24-2025 Radiology Diagnostic study [facility]06-24-2025 Radiology Diagnostic study [facility] 07-17-2024 NoteHNO ID: [id number] Author: RADHA ETIENNE RN Service: ? Author Type: Registered Nurse Type: Progress Notes Filed: 07/17/2024 14:28 Note Text: TRANSITIONAL CARE MANAGEMENT (TCM) COMMUNITY MONITORING PROGRAM - [place] SUMMARY: Pt discharged from [facility] on 07/11/24. Patient seen Inpatient TONY Visit? N/A. Patient seen ICARE Program? N/A. Contact made with patient: Yes Hi my name is Radha Etienne RN and I am calling from the [facility] on behalf of your PCP, Marianna [...] CARE MANAGEMENT (TCM) COMMUNITY MONITORING PROGRAM - [place] SUMMARY: Pt discharged from [facility] on 07/11/24. Patient seen Inpatient TONY Visit? N/A. Patient seen ICARE Program? N/A. Contact made with patient: Yes Hi my name is Radha Etienne RN and I am calling from the [facility] on behalf of your PCP, Marianna [...] hung up. Outreach Ended documented in [facility] encounter[facility]25 NotePatient Outreach (AGACM) ANALILIA MELENDREZ ([id number]) 1960 M Date Time Provider Department 07/17/24 RADHA ETIENNE [facility] During your visit today, we recorded the following information about you: Radha Etienne RN 07/17/2024 2:28 PM Signed TRANSITIONAL CARE MANAGEMENT (TCM) COMMUNITY MONITORING PROGRAM - [place] SUMMARY: Pt discharged from [facility] on 07/11/24. Patient seen Inpatient TONY Visit? N/A. Patient seen ICARE Program? N/A. Contact made with patient: Yes Hi my name is Radha Etienne RN and I am calling from the [facility] on behalf of your PCP, Marianna Wagner APRN.ACCOUNT SUPPORT ASSOCIATE I understand you were recently in the [...] fourteen (14) days to upper arm. - larjvl-svaywjej-tcbdaha (CREON 36) 36,000-114,000- 180,000 unit delayed release capsule Take 2 pills by mouth with first bite of meal and take 1 pill with snacks. Max 10 per day. - Cholecalciferol, Vitamin D3, (VITAMIN D-3) 50 mcg (2,000 unit) cap Take 1 capsule by mouth once daily. 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 Note Date/Time July 14, 2024 8:42a [facility] Medical Records Department [address] [place] [address] Discharge Summary 07/14/24 0839 MR#: [id number] Acct: [id number] Name: ANALILIA MELENDREZ Rep #:[id number] : 1960 63 From: Conrado Morel MD PCP: Sigrid Call DO Status:ADM IN Location: [place] [address] Providers Date of Admission: 07/11/24 Date of [...] - Requested for PT OT eval and director social welfare to assist with discharge planning 15. Tobacco [...] mg PO BID reflux #60 tabs 06/27/23 plgnef-tsccvoto-liahuxg 24,000-76,000-120,000 unit capsule,delayed rel (Creon) 1cap PO [...] Conrado Morel Primary Care Provider: Sigrid Call [facility] Consulting Providers: Piper Fontanez; Melonie De La [...] Self Care Charges/Coding Visit Charges Inpatient E&M: 70535 Disch Hosp >30min 07/14/24 0842 <Electronically signed by Conrado Morel MD> Cosigner Signature (if applicable): CC: Dr. Conrado Morel MD; Sigrid Call DO~ Signed [facility] Work Phone: 1(655) 217-960206-05-2025 Progress note Author Conrado Morel [facility] Note Date/Time July 13, 2024 10:28 am [facility] Medical Records Department [address] [place] [address] Progress Note - Hospitalist 07/13/24 1023 MR#: [id number] Acct: [id number] Name: ANALILIA MELENDREZ Rep #:[id number] : 1960 63 From: Cnorado Morel MD PCP: Marianna Wagner, BUCKET TURNER-C Status:ADM I N Location: MS3 [id number] Reason for Visit Reason for Visit: Diagnoses [...] 74.2 H, Lymph % (Auto) 16.6 L, Turner % (Auto) 6.6, Eos % (Auto) 1.4, [...] or mass effect is seen. Reading Location: [address] Small Bowel X-Ray 07/12/24 14:30 IMPRESSION: No evidence of ileus or obstruction. Reading Location: [id number] Physical Exam Narrative GENERAL: cooperative HEENT: Atraumatic; [...] - Requested for PT OT eval and director social welfare to assist with discharge planning 15. Tobacco [...] documentation, 38Minutes Charges/Coding Visit Charges Inpatient E&M: 64709 Subs Hosp L2 07/13/24 1028 <Electronically signed by Conrado Morel MD> Cosigner Signature (if applicable): CC: ~ Signed [facility] Work Phone: 1(655) 312-619106-05-2025 Progress note Author Dian Mendoza [facility] Note Date/Time July 13, 2024 8:19a m [facility] Medical Records Department [address] [place] [address] Progress Note - Surgery 07/13/24 0808 MR#: [id number] Acct: [id number] Name: ANALILIA MELENDREZ Rep #:[id number] : 1960 63 From: Dian ZUNIGAC PCP: VINOD WildeC Status:ADM I N Location: [place] [address] Subjective Subjective Patient evaluated resting comfortably in [...] 74.2 H, Lymph % (Auto) 16.6 L, Turner % (Auto) 6.6, Eos % (Auto) 1.4, [...] or mass effect is seen. Reading Location: [id number] Small Bowel X-Ray 07/12/24 14:30 IMPRESSION: No evidence of ileus or obstruction. Reading Location: [id number] Physical Exam GI GI Narrative: Abdomen- soft, [...] Thank you Charges/Coding Visit Charges Inpatient E&M: 95444 Subs Hosp L2 07/13/24 0812 <Electronically signed [...] Cosigner Signature (if applicable): cc: ~* Signed [facility] Work Phone: 1(150) 144-456306-04-2025 Radiology Diagnostic study [facility]06-04-2025 Progress note Author Conrado Morel [facility] Note Date/Time July 12, 2024 10:31 am [facility] Medical Records Department [address] [place] [address] Progress Note - Hospitalist 07/12/24 0715 MR#: [id number] Acct: [id number] Name: ANALILIA MELENDREZ Rep #:[id number] : 1960 63 From: Conrado Morel MD PCP: VINOD WildeC Status:ADM I N Location: [place] [address] Reason for Visit Reason for Visit: Diagnoses [...] Clarity Clear, Urine pH 8.0, Ur Specific [place] 1.010, Urine Protein 15 H, Urine Glucose [...] 74.9 H, Lymph % (Auto) 15.4 L, Turner % (Auto) 7.7, Eos % (Auto) 0.4, [...] % (Auto) 59.7, Lymph % (Auto) 26.0, Turner % (Auto) 10.5 H, Eos % (Auto) [...] with compressive atelectasis. Reading Location: [facility] Physical Exam Narrative GENERAL: cooperative [...] - Requested for PT OT eval and director social welfare to assist with discharge planning 15. Tobacco [...] aortic valve stenosis Aortic valve area 1.1 [id number] aortic valve gradient 60.2 mmHg. Mean aortic [...] documentation,52 Minutes Charges/Coding Visit Charges Inpatient E&M: 79024 Subs Hosp L3 07/12/24 1031 <Electronically signed by Conrado Morel MD> Cosigner Signature (if applicable): CC: ~ Signed [facility] Work Phone: 1(195) 327-734606-04-2025 Consult note Author Dian Mendoza [facility] Note Date/Time July 12, 2024 10:[address] [facility] Medical Records Department [address] [place] [address] Consultation - Surgical 07/12/24 0927 MR#: [id number] Acct: [id number] Name: ANALILIA MELENDREZ Rep #:[id number] : 1960 63 From: Dian BALDERAS PA-C PCP: ALAN Wilde Status:ADM I N Location: [place]3 JL537-3 Assessment & Plan Assessment/Plan (1) Abdominal pain: [...] He notes his abdominal pain has improved. [facility] Medical History Thrombocytopenia Chronic pancreatitis Macrocytosis [...] reflux #60 tabs 06/27/23 Unknown Rx release tlvuzy-neugzscd-qtasjte 1 cap PO TIDCM #90 caps 06/09 [...] Clarity Clear, Urine pH 8.0, Ur Specific [place] 1.010, Urine Protein 15 H, Urine Glucose [...] 74.9 H, Lymph % (Auto) 15.4 L, Turner % (Auto) 7.7, Eos % (Auto) 0.4, [...] % (Auto) 59.7, Lymph % (Auto) 26.0, Turner % (Auto) 10.5 H, Eos % (Auto) [...] pleural effusion with compressive atelectasis. Reading [facility] Charges/Coding Visit Charges Inpatient E&M: 98826 Init Hosp L2 07/12/24 1015 <Electronically signed by Dian BALDERAS PA-C> Cosigner Signature (if applicable): CC: ALAN Wagner~ Signed [facility] Work Phone: 1(297) 342-318006-04-2025 [facility] History and physical note Author Melonie De La Rosa [facility] Note Date/Time July 11, 2024 3:21p m [facility] Medical Records Department [address] [place] [address] H&P Exam - Hospitalist 07/11/24 1405 MR#: [id number] Acct: [id number] Name: ANALILIA MELENDREZ Rep #:[id number] : 1960 63 From: Melonie De La Rosa DO PCP: Marianna Wagner BUCKET TURNERMiahC Status:REG E R Location: ED HPI - General General Date of Admission: 07/11/24 Date of Service: 07/11/24 Chief Complaint: Suicidal ideation/nausea vomiting HPI Narrative ANALILIA MELENDREZ, is a 63 M who presented to the emergency department at [facility] on 07/11/2024 with a chief complaint of [...] discussed with Dr. Fontanez prior to admission. [facility] Medical History Thrombocytopenia Chronic pancreatitis Macrocytosis [...] reflux #60 tabs 06/27/23 Unknown Rx release lglefm-ndqfcnub-gmunrrw 1 cap PO TIDCM #90 caps /03/04 [...] Clarity Clear, Urine pH 8.0, Ur Specific [place] 1.010, Urine Protein 15 H, Urine Glucose [...] 74.9 H, Lymph % (Auto) 15.4 L, Turner % (Auto) 7.7, Eos % (Auto) 0.4, [...] with compressive atelectasis. Reading Location: [facility] Assessment & Plan Assessment/Plan (1) [...] need ALBERT and probable referral to a [facility] - Outpatient follow-up here with cardiology after [...] Had thoracic dissection and was treated at [facility] History of heroin abuse - Remote [...] Full code Charges/Coding Visit Charges Inpatient E&M: 40849 Init Hosp L2 07/11/24 1521 <Electronically signed by Melonie De La Rosa DO> Cosigner Signature (if applicable): CC: ALAN Wagner; Dr. Melonie De La Rosa DO~ Signed [facility] Work Phone: 1([phone]) 167-531606-03-2025 Discharge summary Author Perez Ribeiro [facility] Note Date/Time July 11, 2024 2:09p m [facility] Medical Records Department [address] [place] [address] Emergency Department Summary 07/11/24 MR#: [id number] Acct: [id number] Name: ANALILIA MELENDREZ Rep #:[id number] : 1960 63 From: Perez Ribeiro DO [...] he has also been very nauseous lately. [facility] Medical History Thrombocytopenia Chronic pancreatitis Macrocytosis associated [...] reflux #60 tabs 06/27/23 Unknown Rx release tfoaxh-znudmvik-odjotds 1 cap PO TIDCM #90 caps 06/09 [...] following commands knew that he was at [facility] the year is 2024 Skin: Warm, [...] 74.9 H Lymph % (Auto) 15.4 L Turner % (Auto) 7.7 Eos % (Auto) 0.4 [...] Clarity Clear Urine pH 8.0 Ur Specific [place] 1.010 Urine Protein 15 H Urine Glucose [...] with compressive atelectasis. Reading Location: [facility] Discharge Plan Triage Chief Complaint: [...] Marianna Wagner NP Referrals: Marianna Wagner NP, BUCKET TURNER-C [Primary Care Provider] - Print Language: Comoran Disposition Disposition: Acute Care Hospital [facility] What to do if you have Problems For any increased pain, shortness of breath, bleeding, nausea or vomiting, chestpain, or any unexpected problems, contact your Primary Care Provider. Call [facility] ([phone]) or report to the closest Emergency Room. Call 911 if necessary. 07/11/24 1403 <Electronically signed by Perez Ribeiro DO> Cosigner Signature (if applicable): CC: ALAN Wagner ~ Signed [facility] Work Phone: 1(227) 420-144206-03-2025 Discharge summary Author Perez Ribeiro [facility] Note Date/Time July 11, 2024 2:09p m [facility] Medical Records Department [address] [place] [address] Emergency Department Summary 07/11/24 MR#: [id number] Acct: [id number] Name: SAURAVTIBURCIOJANEENANALILIA JAMARI Rep #:[id number] : 1960 63 From: Perez Ribeiro DO PCP: Marianna Queden, [facility]CK[employer] TURNER-C Status:REG E R Location: ED HPI History [...] he has also been very nauseous lately. [facility] Medical History Thrombocytopenia Chronic pancreatitis Macrocytosis associated [...] reflux #60 tabs 06/27/23 Unknown Rx release nftllc-oasivvcg-elnbjkf 1 cap PO TIDCM #90 caps 06/09 [...] following commands knew that he was at [facility] the year is 2024 Skin: Warm, [...] 74.9 H Lymph % (Auto) 15.4 L Turner % (Auto) 7.7 Eos % (Auto) 0.4 [...] Clarity Clear Urine pH 8.0 Ur Specific [place] 1.010 Urine Protein 15 H Urine Glucose [...] with compressive atelectasis. Reading Location: [facility] Discharge Plan Triage Chief Complaint: [...] Provider: Marianna Wagner NP Referrals: Marianna Wagner BUCKET TURNER, BUCKET TURNER-C [Primary Care Provider] - Print Language: Comoran Disposition Disposition: Acute Care Hospital [facility] What to do if you have Problems For any increased pain, shortness of breath, bleeding, nausea or vomiting, chestpain, or any unexpected problems, contact your Primary Care Provider. Call [facility] ([phone]) or report to the closest Emergency Room. Call 911 if necessary. 07/11/24 1409 <Electronically signed by Perez Ribeiro DO> Esmer Signature (if applicable): CC: BUCKET TURNER-C Marianna Wagner ~ Signed [facility] Work Phone: 1(696) 839-590806-03-2025 Radiology Diagnostic study [facility]06-03-2025 NoteHNO ID: [id number] Author: RADHA ETIENNE RN Service: ? Author Type: Registered Nurse Type: Progress Notes Filed: 07/11/2024 12:49 Note Text: AG TRANSITIONAL CARE MANAGEMENT (TCM) FOLLOW-UP NOTE Patient identified by name and date of : YES Diagnosis: CHF Summary: TCM RN called for TCM f/u (D/C 07/06/24). Pt isn't home at this time. Health leads screening tool questions performed? Addressed 07/07/24 N/A Concerns: N/A Clearing Tub Worker plan for next outreach: Will follow-up next wk. Signature: [facility] History of Present illness Narrative* Radha Etienne RN - 07/11/2024 12:34 PM EDT AG TRANSITIONAL CARE MANAGEMENT (TCM) FOLLOW-UP NOTE Patient identified by name and date of : YES Diagnosis: CHF Summary: TCM RN called for TCM f/u (D/C 07/06/24). Pt isn't home at this time. Health leads screening tool questions performed? Addressed 07/07/24 N/A Concerns: N/A Clearing Tub Worker plan for next outreach: Will follow-up next wk. Signature: Radha Etienne RN July 11, 2024 documented in this encounterSelect [facility] [place]-03-2025 NotePatient Outreach (AGACM) ANALILIA MELENDREZ ([id number]) 1960 M Date Time Provider Department 07/11/24 RADHA ETIENNE [facility] During your visit today, we recorded the following information about you: Radha Etienne RN 07/11/2024 12:49 PM Signed AG TRANSITIONAL CARE MANAGEMENT (TCM) FOLLOW-UP NOTE Patient identified by name and date of : YES Diagnosis: CHF Summary: TCM RN called for TCM f/u (D/C 07/06/24). Pt isn't home at this time. Health leads screening tool questions performed? Addressed 07/07/24 N/A Concerns: N/A Clearing Tub Worker plan for next outreach: Will follow-up next [...] fourteen (14) days to upper arm. - nczejk-kubltukp-ajopiac (CREON 36) 36,000-114,000- 180,000 unit delayed release capsule Take 2 pills by mouth with first bite of meal and take 1 pill with snacks. Max 10 per day. - Cholecalciferol, Vitamin D3, (VITAMIN D-3) 50 mcg (2,000 unit) cap Take 1 capsule by mouth once daily. 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*01/03/2017 Chronic pancreatitis (HCC) [K86.1] 08/09/2023 Calcium [...] myocardial infarction [I25.2] 05/19 (more content not included)...[facility] NoteHNO ID: [id number] Author: RADHA ETIENNE RN Service: ? Author Type: Registered Nurse Type: Progress Notes Filed: 07/07/2024 11:25 Note Text: TRANSITIONAL CARE MANAGEMENT (TCM) COMMUNITY MONITORING PROGRAM - [place] SUMMARY: Pt discharged from [facility] on 07/06/24. Admitted for: CHF Non-compliance Patient seen Inpatient TONY Visit? N/A. Patient seen ICARE Program? N/A. Contact made with patient: Yes Hi my name is Radha Etienne RN and I am calling from the [facility] on behalf of your PCP, Marianna Wagner APRN.ACCOUNT SUPPORT ASSOCIATE I understand you were recently in the [...] like to speak with a social work steam hand to help give you support for any [...] TAKEN: No action required WRAP AROUND SERVICES: Litigation Legal Secretary Referral - Declined Patient educated on importance [...] - encouraged to do so. Radha Etienne, [facility]05-30-2025 History of Present illness Narrative* Radha Etienne, RN - 07/07/2024 10:53 AM EDT TRANSITIONAL CARE MANAGEMENT (TCM) COMMUNITY MONITORING PROGRAM - [place] SUMMARY: Pt discharged from [facility] on 07/06/24. Admitted for: CHF Non-compliance Patient seen Inpatient TONY Visit? N/A. Patient seen ICARE Program? N/A. Contact made with patient: Yes Hi my name is Radha Etienne RN and I am calling from the [facility] on behalf of your PCP, Marianna Wagner APRN.ACCOUNT SUPPORT ASSOCIATE I understand you were recently in the [...] like to speak with a social work steam hand to help give you support for any [...] TAKEN: No action required WRAP AROUND SERVICES: Litigation Legal Secretary Referral - Declined Patient educated on importance [...] so. Radha Etienne RN documented in this encounterSelect [facility]05-30-2025 NotePatient Outreach (AGACM) ANALILIA MELENDREZ ([id number]) 1960 M Date Time Provider Department 07/07/24 RADHA ETIENNE [facility] During your visit today, we recorded the following information about you: Radha Etienne, ELIS 07/07/2024 11:25 AM Signed TRANSITIONAL CARE MANAGEMENT (TCM) COMMUNITY MONITORING PROGRAM - [place] SUMMARY: Pt discharged from [facility] on 07/06/24. Admitted for: CHF Non-compliance Patient seen Inpatient TONY Visit? N/A. Patient seen ICARE Program? N/A. Contact made with patient: Yes Hi my name is Radha Etienne RN and I am calling from the [facility] on behalf of your PCP, Marianna Wagner APRN.ACCOUNT SUPPORT ASSOCIATE I understand you were recently in the [...] like to speak with a social work steam hand to help give you support for any [...] TAKEN: No action required WRAP AROUND SERVICES: Litigation Legal Secretary Referral - Declined Patient educated on importance [...] MEAL - ramipril (ALTACE) (more content not included)...[facility] 07-06-2024 [facility]05-28-2025 Progress note Author [facility] Note Date/Time July 05, 2024 1:44p [facility] Medical Records Department [address] [place] [address] Progress Note - Hospitalist 07/05/24 1119 MR#: [id number] Acct: [id number] Name: ANALILIA MELENDREZ Rep #:[id number] : 1960 63 From: Chris de la cruz DO PCP: ALAN Wilde Status:ADM I N Location: [place] [address] Reason for Visit Reason for Visit: Diagnoses [...] Antibody < 0.2, Sm (Khalil) Antibody <0.2, IMMUNOPATHOLOGIST Antibody <0.2, Scl-70 Scleroderma Ab <0.2, Double [...] is a 63-year-old male who presented to [facility] ED on 06/30/2024 with worsening abdominal pain [...] 35 minutes. Charges/Coding Visit Charges Inpatient E&M: 63786 Subs Hosp L2 07/05/24 1344 <Electronically signed by Chris Aragon DO> Cosigner Signature (if applicable): CC: ~ Signed [facility] Work Phone: 1(355) 257-143005-27-2025 Progress note Author Antony Espitia [facility] Note Date/Time July 04, 2024 5:44p m [facility] Medical Records Department [address] [place] [address] Progress Note 07/04/24 1741 MR#: [id number] Acct: [id number] Name: ANALILIA MELENDREZ Rep #:[id number] : 1960 63 From: Antony Espitia DO PCP: VINOD WildeC Status:ADM I N Location: [place] [address] Assessment & Plan Assessment/Plan (1) Chronic pancreatitis: [...] workup. Poor prognosis. Visit Charges Inpatient E&M: 39227 Subs Hosp L3 07/04/24 1744 <Electronically signed by Antony Espitia DO> Antony Espitia DO Cosigner Signature (if applicable): CC: ~ Signed [facility] Work Phone: 1(753) 601-215005-27-2025 Progress note Author Chris Aragon [facility] Note Date/Time July 04, 2024 12:[address] [facility] Medical Records Department [address] [place] [address] Progress Note - Hospitalist 07/04/24 1135 MR#: [id number] Acct: [id number] Name: ANEESHANALILIACULLEN KAUFFMAN Rep #:[id number] : 1960 63 From: Chris de la cruz DO PCP: ALAN Wilde Status:ADM I N Location: [place] [address] Reason for Visit Reason for Visit: Diagnoses [...] Total Protein Cancelled, Urine Albumin Cancelled, U Kmlww-4-Egeuxevz Cancelled, U Twcxc-0-Flgtrmqa Cancelled, U Beta Globulin Cancelled, U Gamma Globulin Cancelled, U PEP M-Herb Cancelled, Urine Immunofixation Cancelled, Urine HELENA Interpret Cancelled, Ur Immunofix PEP Note Cancelled, RAMANA-1 Antibody TNP, Sm (Khalil) Antibody TNP, IMMUNOPATHOLOGIST Antibody TNP, Scl-70 Scleroderma Ab TNP, Antichromatin [...] is a 63-year-old male who presented to [facility] ED on 06/30/2024 with worsening abdominal pain [...] 35 minutes. Charges/Coding Visit Charges Inpatient E&M: 77806 Subs Hosp L2 07/04/24 1239 <Electronically signed by Chris Aragon DO> Cosigner Signature (if applicable): CC: ~ Signed [facility] Work Phone: 1(745) 155-324605-27-2025 Consult note Author Yaneli Carbone [facility] Note Date/Time July 04, 2024 10:59 am [facility] Medical Records Department [address] [place] [address] Consultation - Cardiology 07/04/24 1030 MR#: [id number] Acct: [id number] Name: ANALILIA MELENDREZ Rep #:[id number] : 1960 63 From: Yaneli Carbone MD PCP: Marianna Wagner BUCKET TURNER-C Status:ADM I N Location: [place] [address] Assessment & Plan Assessment/Plan (1) Pancytopenia: (2) [...] a redo valve using bovine valve at [facility]. As well he had a pacemaker. 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. Yaneli Carbone MD,[facility] HPI Consult Data Date of Consult: 07/04/24 HPI Narrative Reason for Consultation: Moderate LV systolic dysfunction/moderate/severe bioprosth. aortic stenosis HPI Narrative: ANALILIA MELENDREZ, is a 63 M who presents [facility] Medical History (Updated 07/03/24 @ 14:55 [...] reflux #60 tabs 06/27/23 Unknown Rx release wtynsw-ktvegulk-dfxhdam 1 cap PO TIDCM #90 caps 06/09 [...] Exam Cardio Cardio Narrative: Review of the boatbuilder apprentice wood showed paced atrial rhythm Cardiac exam S1-S2 [...] Total Protein Cancelled, Urine Albumin Cancelled, U Atwgm-6-Xlunxczg Cancelled, U Jquka-6-Muwrhckw Cancelled, U Beta Globulin Cancelled, U Gamma Globulin Cancelled, U PEP M-Herb Cancelled, Urine Immunofixation Cancelled, Urine HELENA Interpret Cancelled, Ur Immunofix PEP Note Cancelled, RAMANA-1 Antibody TNP, Sm (Khalil) Antibody TNP, IMMUNOPATHOLOGIST Antibody TNP, Scl-70 Scleroderma Ab TNP, Antichromatin [...] Carbone MD> Cosigner Signature (if applicable): CC: BUCKET TURNER-C Marianna Wagner; Dr. Conrado Pro DO~ Signed [facility] Work Phone: 1(958) 862-841305-26-2025 Progress note Author [facility] Note Date/Time July 03, 2024 2:55p m [facility] Medical Records Department [address] [place] [address] Progress Note - Hospitalist 07/03/24 1032 MR#: [id number] Acct: [id number] Name: ANALILIA MELENDREZ Rep #:[id number] : 1960 63 From: Chris de la cruz DO PCP: ALAN Wilde Status:ADM I N Location: [place] [address] Reason for Visit Reason for Visit: Diagnoses [...] is a 63-year-old male who presented to [facility] ED on 06/30/2024 with worsening abdominal pain [...] 35 minutes. Charges/Coding Visit Charges Inpatient E&M: 54234 Subs Hosp L2 07/03/24 7714 <Electronically signed by Chris Aragon DO> Cosigner Signature (if applicable): CC: ~ Signed [facility] Work Phone: 1(126) 899-410905-26-2025 Consult note Author Antony Friend [facility] Note Date/Time July 03, 2024 11:50 am [facility] Medical Records Department [address] [place] [address] Consultation - GI 07/03/24 1127 MR#: [id number] Acct: [id number] Name: ANALILIA MELENDREZ Rep #:[id number] : 1960 63 From: Antony Friend DO PCP: Marianna Wagner BUCKET TURNER-C Status:ADM I N Location: [place] [address] HPI Consult Data Date of Consult: 07/03/24 [...] history, including gastrointestinal bleeding or liver disease. [facility] Medical History (Updated 07/03/24 @ 11:34 [...] reflux #60 tabs 06/27/23 Unknown Rx release oqdwpr-fbozleue-owbtppd 1 cap PO TIDCM #90 caps 06/09 [...] sodium restriction Charges/Coding Visit Charges Inpatient E&M: 48599 Init Hosp L3 07/03/24 1150 <Electronically signed by Antony Espitia DO> Cosigner Signature (if applicable): CC: ALAN Wagner; Dr. Conrdao Pro DO~ Signed [facility] Work Phone: 1([phone] 128-422105-25-2025 Progress note Author Melonie De La Rosa [facility] Note Date/Time July 02, 2024 11:47 am [facility] Medical Records Department [address] [place] [address] Progress Note - Hospitalist 07/02/24 0712 MR#: [id number] Acct: [id number] Name: ANALILIA MELENDREZ Rep #:[id number] : 1960 63 From: Melonie De La Rosa DO PCP: Marianna Wagner BUCKET TURNER-C Status:ADM I N Location: [place] [address] Reason for Visit Reason for Visit: Abdominal [...] Had thoracic dissection and was treated at [facility] History of heroin abuse - Remote - patient states he has been clean for approximately 10 years Tobacco abuse - Encouraged cessation - nicotine patch replacement available DVT prophylaxis -Platelet count remains greater than 70,000 -Start enoxaparin 40 daily CODE STATUS - Full code Charges/Coding Visit Charges Inpatient E&M: 22117 Subs Hosp L2 07/02/24 1147 <Electronically signed by Melonie De La Rosa DO> Cosigner Signature (if applicable): CC: ~ Signed [facility] Work Phone: 1(395) 223-989905-24-2025 Progress note Author Melonie De La Rosa [facility] Note Date/Time July 01, 2024 1:59p m [facility] Medical Records Department [address] [place] [address] Progress Note - Hospitalist 07/01/24 0749 MR#: [id number] Acct: [id number] Name: ANALILIA MELENDREZ Rep #:[id number] : 1960 63 From: Melonie De La Rosa DO PCP: ALAN Wilde Status:ADM I N Location: [place] [address] Reason for Visit Reason for Visit: Abdominal [...] 75.0 H, Lymph % (Auto) 14.4 L, Turner % (Auto) 9.1, Eos % (Auto) 0.3, [...] Alkaline Phosphatase 117, [place] [address] H, Total Protein 5.1 L, Albumin 2.5 L, Globulin 2.6, Lipase 6 L, Ethyl Alcohol < 10.1 06/30/24 16:50: Urine Color Yellow, Urine Clarity Sl. Cloudy, Urine pH 6.0, Ur Specific [place] 1.020, Urine Protein 30 H, Urine Glucose [...] % (Auto) 68.9, Lymph % (Auto) 19.3, Turner % (Auto) 9.8, Eos % (Auto) 1.0, [...] 5. Sequela of chronic pancreatitis. Reading Location: AKI-[id number]-A Chest X-Ray 06/30/24 17:05 IMPRESSION: 1. Moderate bilateral pleural effusions. 2. Linear opacity at the left mid lung zone may represent extension of pleural fluid, atelectasis, or infection. 3. Nodular opacities at the right perihilar region, possibly calcified lymph nodes. Consider CT Chest if patient has risk factors for malignancy. 4. Cardiomegaly. Reading Location: [id number] Physical Exam Const alert, oriented x3, no [...] Had thoracic dissection and was treated at [facility] History of heroin abuse - Remote - patient states he has been clean for approximately 10 years Tobacco abuse - Encouraged cessation - nicotine patch replacement available DVT prophylaxis -Platelet count remains greater than 70,000 -Start enoxaparin 40 daily CODE STATUS - Full code Charges/Coding Visit Charges Inpatient E&M: 64385 Subs Hosp L2 07/01/24 1825 <Electronically signed by Melonie De La Rosa DO> Nixonigner Signature (if applicable): CC: ~ Signed [facility] Work Phone: 1(313) 216-700705-24-2025 Procedure [facility] 07-01-2024 History and physical note Author Conrado Fraser [facility] Note Date/Time July 01, 2024 6:46a m [facility] Medical Records Department [address] [place] [address] H&P Exam - Hospitalist 06/30/24 193 MR#: [id number] Acct: [id number] Name: ANALILIA MELENDREZ JAMARI Rep #:[id number] : 1960 63 From: Conrado Gonzalez DO PCP: ALAN Wilde Status:ADM I N Location: [place] [address] HPI - General General Date of Admission: [...] metformin, diabetic neuropathy; on gabapentin, CAD; s/p MA, history of mechanical aortic valve replacement (2014) followed by bioprosthetic aortic valve replacement (~2016), history of SSS; s/p PPM (2017), history of RBBB, history of NSVT, history of AAA, history of thoracic aortic aneurysm with dissection (~2005 & ~2016 at [facility]), chronic EtOH abuse; with patient admitting [...] furosemide and spironolactone who now re-presents to [facility] ER complaining of SOB, abdominal pain and [...] to previousCT on June 22, 2024 with jsotkonz-uk-vhkro volume ascites, unchanged in addition to moderate [...] is expected to extend beyond 2 midnights. [facility] Medical History MALIK (acute kidney injury) [...] reflux #60 tabs 06/27/23 Unknown Rx release jnexqf-ntxztygh-oscgzrz 1 cap PO TIDCM #90 caps 06/09 [...] 75.0 H, Lymph % (Auto) 14.4 L, Turner % (Auto) 9.1, Eos % (Auto) 0.3, [...] Sl. Cloudy, Urine pH 6.0, Ur Specific [place] 1.020, Urine Protein 30 H, Urine Glucose [...] 5. Sequela of chronic pancreatitis. Reading Location: GQN-TDUZRREFE-Q Chest X-Ray 06/30/24 17:05 IMPRESSION: 1. Moderate bilateral pleural effusions. 2. Linear opacity at the left mid lung zone may represent extension of pleural fluid, atelectasis, or infection. 3. Nodular opacities at the right perihilar region, possibly calcified lymph nodes. Consider CT Chest if patient has risk factors for malignancy. 4. Cardiomegaly. Reading Location: [id number]-[id number]-G Assessment & Plan Assessment/Plan (1) Volume overload: [...] - Resume current regimen. 12. CAD; s/p MA - Stable. 13. History of mechanical aortic valve replacement (2014) followed by bioprosthetic aortic valve replacement (~2016) - Noted. 14. History of SSS; s/p PPM (2016) - Noted. 15. History of RBBB - Noted. 16. History of NSVT - Noted. 17. History of AAA - Stable. 18. History of thoracic aortic aneurysm with dissection (~2005 & ~2016 at [facility]) - Stable. 19. History of MALIK [...] 75 minutes. Charges/Coding Visit Charges Inpatient E&M: 29828 Init Hosp L3 07/01/24 0646 <Electronically signed by Conrado Pro DO> Cosigner Signature (if applicable): CC: ALAN Wagner; Dr. Conrado Pro, ~ Signed [facility] Work Phone: 1([phone]) 339-433305-24-2025 Discharge summary Author Narendra Gonzalez [facility] Note Date/Time June 30, 2024 11:11 pm [facility] Medical Records Department [address] [place] [address] Emergency Department Summary 06/30/24 MR#: [id number] Acct: [id number] Name: ANALILIA MELENDREZ Rep #:[id number] : 1960 63 From: Narendra Rosado PCP: Marianna Queden, BUCKET TURNER-C Status:ADM I N Location: [facility] FPV755- 1 HPI HPI - GI History of [...] [facility] Later in his ED course after he has had some time to think about it he states that he is not sure if he is taking any diuretics. He states he remembers taking some tramadol that was prescribed but does not recall anything that would make him urinate. [facility] Medical History MALIK (acute kidney injury) Seizures [...] reflux #60 tabs 06/27/23 Unknown Rx release uptseb-yurjoxcv-gsheknq 1 cap PO TIDCM #90 caps 06/09 [...] 75.0 H Lymph % (Auto) 14.4 L Turner % (Auto) 9.1 Eos % (Auto) 0.3 [...] Sl. Cloudy Urine pH 6.0 Ur Specific [place] 1.020 Urine Protein 30 H Urine Glucose [...] factors for malignancy. 4. Cardiomegaly. Reading Location: NZL-LORBUUDWA-Y Management Discussion w/another healthcare provider: Hospitalist Discharge Plan Dx/Rx/DC Orders Clinical Impression: Ascites due to alcoholic cirrhosis, Pleural effusion, Hypoxia, Volume overload,MALIK (acute kidney injury) Disposition Disposition: Acute Care Hospital [facility] What to do if you have Problems For any increased pain, shortness of breath, bleeding, nausea or vomiting, chestpain, or any unexpected problems, contact your Primary Care Provider. Call [facility] ([phone]) or report to the closest Emergency Room. Call 911 if necessary. 06/30/24 1978 <Electronically signed by Narendra Gonzalez DO> Cosigner Signature (if applicable): CC: BUCKET TURNER-Stephen Wagner ~ Signed [facility] Work Phone: 1(474) 730-420805-23-2025 Radiology Diagnostic study [facility]05-23-2025 Radiology Diagnostic study [facility]05-22-2025 NoteHNO ID: [id number] Author: YESSICA UMANA LPN Service: ? Author Type: LICENSED NURSE Type: Progress Notes Filed: 06/29/2024 09:30 Note Text: TRANSITIONAL CARE MANAGEMENT (TCM) COMMUNITY MONITORING PROGRAM - [place] Provider Action/FYI: Per pt he needs to cancel appointment for today as he does not have away to the appointment today. Per pt he will call back to reschedule. SUMMARY: Pt discharged from [facility] on 06/28/2024. Admitted for: Ascites due to alcoholic cirrhosis Patient seen Inpatient TONY Visit? N/A. Patient seen ICARE Program? N/A. Contact made with patient: Yes Hi my name is Yessica Umana LPN and I am calling from the [facility] on behalf of your PCP, Marianna Wagner APRN.ACCOUNT SUPPORT ASSOCIATE I understand you were recently in the [...] like to speak with a social work steam hand to help give you support for any [...] present (or call on the way if possible).[place] [address]-22-2025 NotePatient Outreach (AGFAMPLE) ANALILIA MELENDREZ ([id number]) 1960 M Date Time Provider Department 06/29/24 MARIANNA WAGNER During your visit today, we recorded the following information about you: Yessica Umana LPN 06/29/2024 9:30 AM Signed TRANSITIONAL CARE MANAGEMENT (TCM) COMMUNITY MONITORING [facility] [place] Provider Action/FYI: Per pt he needs to cancel appointment for today as he does not have away to the appointment today. Per pt he will call back to reschedule. SUMMARY: Pt discharged from [facility] on 06/28/2024. Admitted for: Ascites due to alcoholic cirrhosis Patient seen Inpatient TONY Visit? N/A. Patient seen ICARE Program? N/A. Contact made with patient: Yes Hi my name is Yessica Umana LPN and I am calling from the [facility] on behalf of your PCP, Marianna Wagner APRN.ACCOUNT SUPPORT ASSOCIATE I understand you were recently in the [...] like to speak with a social work steam hand to help give you support for any [...] Reviewed: 04/12/2024 Reviewed by: (more content not included)...[facility] 06-28-2024 Consult note [facility] Medical Records Department [address] [place] [address] Anesthesia Postop Eval II 06/27/24 1540 MR#: [id number] Acct: [id number] Name: ANALILIA MELENDREZ Rep #:[id number] : 1960 63 From: Carlos Yanes MD PCP: ALAN Wilde Status:ADM I N Y Race: C Location: [place] [address] 4-1 Anesthesia Postop Eval I Sum Postop [...] Carlos Lyman Signature: Date CC: ~ Signed [facility]05-21-2025 Discharge summary Author Melonie De La Rosa [facility] Note Date/Time June 28, 2024 1:27p [facility] Medical Records Department [address] [place] [address] Discharge Summary 06/28/24 1200 MR#: [id number] Acct: [id number] Name: ANALILIA MELENDREZ Rep #:[id number] : 1960 63 From: Melonie De La Rosa DO PCP: ALAN Wilde Status:ADM I N Location: [place] [address] Providers Date of Admission: 06/25/24 Date of [...] mg PO BID reflux #60 tabs 06/27/23 aoshmx-vnyzbsro-gqzpqyy 24,000-76,000-120,000 unit capsule,delayed rel (Creon) 1cap PO TIDCM #90 caps 06/28/24 tramadol 50 mg tablet 50 mg PO Q8H PRN pain #9 tabs 06/28/24 Hospital Course Operations None Procedures EGD, EKG, Paracentesis and - (Gallbladder ultrasound/CT abdomen pelvis) Summary of Care Provided Minutes Spent on Discharge: 42 Hospital Course: Mr. Melendrez is a 63-year-old white male who presented to the emergency department at [facility] on 06/26/2023 with a chief complaint of abdominal pain and chronic diarrhea. Patient reported that symptoms began several months prior to admission with chronic diarrhea. He reported he had an outpatient workup to include an EGD and colonoscopy in March 2024 done by at [facility]. This was done for anemia. He [...] anemia Thrombocytopenia-chronic Hypokalemia-resolved Hypophosphatemia-resolved Constipation-resolved Lactic acidosis-resolved IJ-7-mlpbnjhzaj CAD Essential hypertension Hyperlipidemia Diabetic neuropathy GERD [...] male, sitting on the edge of bed, video library assistant at bedside, does not appear acutely [...] % (Auto) 66.8, Lymph % (Auto) 21.1, Turner % (Auto) 9.9, Eos % (Auto) 0.9, [...] La Rosa Primary Care Provider: Marianna Wagner BUCKET TURNER Consulting Providers: Conrado Pro Instructions Additional Instructions [...] Self Care Charges/Coding Visit Charges Inpatient E&M: 02463 Disch Hosp >30min 06/28/24 1327 <Electronically signed by Melonie De La Rosa DO> Cosigner Signature (if applicable): CC: ALAN Wagner; Dr. Melonie De La Rosa DO; Antony Espitia DO~ Signed [facility] Work Phone: 1(752) 248-373105-21-2025 Discharge summary [facility] Medical Records Department [address] [place] [address] Discharge Summary 06/28/24 1200 MR#: [id number] Acct: [id number] Name: ANALILIA MELENDREZ Rep #:[id number] : 1960 63 From: Melonie De La Rosa DO PCP: ALAN Wilde Status:ADM I N Location: [place] [address] Providers Date of Admission: 06/25/24 Date of Discharge: 06/28/24 Primary Care Physician: ALAN Wilde Consultations 06/26/24 00:39 Consult: Gastroenterology Routine Consulting Provider: [facility] Reason for Consult: Chronic diarrhea with [...] pen (Lantus Solostar U-100 Insulin) 10 unit coitgt5580 DIABETES 11/14/22 metformin 500 mg tablet,extended release [...] mg PO BID reflux #60 tabs 06/27/23 bshcag-rbtcpgce-euaydhg 24,000-76,000-120,000 unit capsule,delayed rel (Creon) 1cap PO TIDCM #90 caps 06/28/24 tramadol 50 mg tablet 50 mg PO Q8H PRN pain #9 tabs 06/28/24 Hospital Course Operations None Procedures EGD, EKG, Paracentesis and - (Gallbladder ultrasound/CT abdomen pelvis) Summary of Care Provided Minutes Spent on Discharge: 42 Hospital Course: Mr. Melendrez is a 63-year-old white male who presented to the emergency department at [facility] on 06/26/2023 with a chief complaint of abdominal pain and chronic diarrhea. Patient reported that symptoms began several months prior to admission with chronic diarrhea. He reported he had an outpatient workup to include an EGD and colonoscopy in March 2024 done by at [facility]. This was done for anemia. 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 Melonie De La Rosa DO; Antony Espitia DO~ Signed [facility]05-21-[facility] Progress note Author Melonie De La Rosa [facility] Note Date/Time June 27, 2024 6:19p m [facility] Medical Records Department [address] [place] [address] Progress Note - Hospitalist 06/27/24 0737 MR#: [id number] Acct: [id number] Name: ANALILIA MELENDREZ Rep #:[id number] : 1960 63 From: Melonie De La Rosa DO PCP: ALAN Wilde Status:ADM I N Location: [place] [address] Reason for Visit Reason for Visit: Abdominal [...] % (Auto) 63.2, Lymph % (Auto) 25.4, Turner % (Auto) 8.9, Eos % (Auto) 1.1, [...] mL of light colored fluid. 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 Work Phone: 1(782) 883-654905-20-2025 Progress note [facility] Medical Records Department [address] [place] [address] Progress Note - Hospitalist 06/27/24 0737 MR#: [id number] Acct: [id number] Name: ANALILIA MELENDREZ Rep #:[id number] : 1960 63 From: Melonie De La Rosa DO PCP: ALAN Wilde Status:ADM I N Location: [place] [address] Reason for Visit Reason for Visit: Abdominal [...] 0.23, AST 49 H, ALT 27, Alkaline Lgfvkmkrdvr49, Total Protein 4.2 L, Albumin 2.0 L, [...] % (Auto) 63.2, Lymph % (Auto) 25.4, Turner % (Auto) 8.9, Eos % (Auto) 1.1, [...] mL of light colored fluid. 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05-20-2025 Consult note Author Carlos Yanes [facility] Note Date/Time June 28, 2024 3:08p m [facility] Medical Records Department [address] [place] [address] Anesthesia Postop Eval II 06/27/24 1540 MR#: [id number] Acct: [id number] Name: ANALILIA MELENDREZ Rep #:[id number] : 1960 63 From: Carlos Yanes MD PCP: Marianna Wagner NP-C Status:ADM I N Y Race: C Location: [place] [address] 4-1 Anesthesia Postop Eval I Sum Postop [...] MD Cosigner Signature: Date CC: ~ Signed [facility] Work Phone: 1(604) 204-789605-20-2025 Consult note Author Wilma Ribeiro [facility] Note Date/Time June 27, 2024 3:17p m [facility] Medical Records Department [address] [place] [address] Anesthesia Postop Eval I 06/27/241515 MR#: [id number] Acct: [id number] Name: ANALILIA MELENDREZ Rep #:[id number] : 1960 63 From: Wilma Ribeiro PCP: ALAN Wilde Status:ADM I N Y Race: C Location: [address] Anesthesia: Postop Eval I Current Vital [...] Wilma Lyman Signature: Date CC: ~ Signed [facility] Work Phone: 1(158) 831-338005-20-2025 Consult note Author Carlos Yanes 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: 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 - wire bound box machine operator Hx Hospitalization No 05/09/20 19:26 Any Problems [...] take am of surgery PONV PONV - wire bound box machine operator: PONV - wire bound box machine operator Female HX of Motion Sickness HX of N/V After Surgery Non-Smoker Duration of Surgery greater than 60 minutes Number of Risk Factors PONV Score Height & Weight Height & Weight: Anesthesia: Height & Weight Height 5 ft 11 in 06/26/24 22:53 Weight: 75.2 kg 06/27/24 05:39 Body Mass Index (BMI) 23.2 06/27/24 05:39 Respiratory Assessment Respiratory Assessment - wire bound box machine operator: Respiratory Tract Infection Hx - wire bound box machine operator Hx Respiratory Tract Infection No 06/26/24 22:53 STOP Sleep Apnea STOP Sleep Apnea - wire bound box machine operator: STOP Sleep Apnea - wire bound box machine operator Hx Hypertension Yes 06/26/24 00:18 Hx Sleep [...] Tobacco Use History Tobacco Use History - wire bound box machine operator: Tobacco Use History - wire bound box machine operator Tobacco Use Smoking Status Current every day smoker 06/26/24 03:49 Hx Tobacco Use Yes 06/26/24 00:18 Years Smoking Packs Smoked per Day Smoking Cessation Date was within the last 15 years Hx Smoking Cessation Date Hx Smoking Cessation No 06/26/24 00:18 Counseling Hematologic Medial History Hematologic Hx - wire bound box machine operator: Hematologic Medical Hx - receiving checker Hx of Blood Transfusion No 06/26/24 00:18 [...] confused, unrespo /Reproduction History /Reproductive History - wire bound box machine operator: /Reproductive Hx- wire bound box machine operator Hx Now No 06/26/24 22:53 Gestational Age [...] Glycerin/Hypromellose/Polyethylene 2 drp 06/26/24 21:37 06/27/24 12:22 Glycerin/Hypromellose/Mfg091 15 Ml Bottle EACH EYE 2 drp [...] mls @ 15 mls/hr 06/26/24 06:11 IV .[id number] PRN Saline Flush Sodium Chloride 250 mls @ 15 mls/hr 06/26/24 06:11 IV .[id number] PRN Additional IVPB Infusion Lactated Ringer's 1,000 mls @ 15 mls/hr 06/27/24 14:15 06/27/24 14:26 IV 15 mls/hr .Q48H KUNAL Administration Insulin Glargine 5 unit 06/26/24 12:00 06/27/24 12:21 Insulin Glargine-Yfgn 100 Unit/Ml Pen SC Not Given 1200 [facility] Insulin Human Lispro 0 unit 06/26/24 00:39 06/27/24 12:20 Insulin Lispro 100 Unit/Ml Insuln.Pen SC Not Given Q6 [facility] Protocol Lorazepam 0.5 mg 06/26/24 00:39 Lorazepam 2 Mg/Ml Wch Syringe IV Q4H PRN PRN AGITATION Melatonin 6 mg 06/26/24 22:22 06/26/24 22:52 Melatonin 3 Mg Tablet PO 6 mg QHS PRN PRN Administration SLEEP Metoprolol Succinate 25 mg 06/26/24 10:00 06/27/24 08:19 Metoprolol(Xl)Succ 25 Mg Tablet PO Not Given BID [facility] Protocol Morphine Sulfate 2 mg 06/26/24 00:39 06/26/24 01:59 Morphine 2 Mg/Ml Syringe IV 2 mg Q4H PRN PRN Administration Pain Score 6-10 Multivitamins 1 tablet 06/26/24 08:00 06/27/24 08:16 Multivitamins,Therapeutic [facility]t [facility] Nicotine 14 mg 06/26/24 00:39 06/27/24 08:18 Nicotine 14 Mg Patch TD 14 mg DAILY [facility] Administration Ondansetron HCl 4 mg 06/26/24 00:39 Ondansetron 4 Mg/2 Ml Vial IV Q8H PRN PRN NAUSEA/VOMITING Pancrelipase 1 cap 06/27/24 08:00 06/27/24 12:20 Creon 24,[address] Capsule PO Not Given TIDCM [facility] Pantoprazole Sodium 40 mg 06/26/24 22:00 06/27/24 08:19 Pantoprazole Sodium 40 Mg Tablet PO Not Given BID [facility] Polyethylene Glycol 17 gm 06/26/24 12:45 06/27/24 08:18 Polyethylene Glycol 3350 17 Gm Packet PO Not Given BID [facility] Promethazine HCl 25 mg 06/26/24 00:39 Promethazine [...] Mg Tablet PO Not Given DAILY [facility] Protocol Thiamine HCl 100 mg 06/26/24 08:00 06/27/24 08:17 Thiamine Hydrochloride 100 Mg Tablet [facility] History MALIK (acute kidney injury) [...] no additional complaints, except as documented. 06/27/24 7952 <Electronically signed by Carlos Yanes MD > Date _ Carlos Yanes MD Cosigner Signature: Date CC: ~ Signed [facility] Work Phone: 1(845) 600-837705-20-2025 Progress note Author Antony Friend [facility] Note Date/Time June 27, 2024 2:46p m [facility] Medical Records Department [address] [place] [address] Progress Note 06/27/24 1444 MR#: [id number] Acct: [id number] Name: ANALILIA MELENDREZ Rep #:[id number] : 1960 63 From: Antony Espitia DO PCP: ALAN Wilde Status:ADM I N Location: [place] [address] Progress Note Patient is for upper endoscopy [...] ASA of 3. Visit Charges Inpatient E&M: 54160 Subs Hosp L3 06/27/24 9526 <Electronically signed by Antony Espitia DO> Antony Espitia DO Cosignalex Signature (if applicable): CC: ~ Signed [facility] Work Phone: 1(344) 104-392405-20-2025 Consult note [facility] Medical Records Department [address] [place] [address] Anesthesia Postop Eval I 06/27/241515 MR#: [id number] Acct: [id number] Name: ANALILIA MELENDREZ Rep #:[id number] : 1960 63 From: Wilma Ribeiro PCP: ALAN Wilde Status:ADM I N Y Race: C Location: [place] [address] Anesthesia: Postop Eval I Current Vital Signs [...] Wilma Lyman Signature: Date CC: ~ Signed [facility]05-20-2025 Procedure note [facility] Medical Records Department [address] [place] [address] EGD Report MR#: [id number] Acct: [id number] Name: ANALILIA MELENDREZ Rep #:[id number] : 1960 63 From: Antony Espitia DO [...] pathology results. Procedure Code(s): --- Professional --- 38414, Small intestinal endoscopy, enteroscopy beyond second portion of duodenum, not including ileum; with biopsy, single or multiple CPT copyright 2021 [employer]. All rights reserved. The codes documented in this report are preliminary and upon site safety manager review may be revised to meet current compliance requirements. Antony Espitia DO 06/27/2024 3:14:55 PM This report has been signed electronically. Number of Addenda: 0 Note Initiated On: 06/27/2024 2:47 PM 06/27/24 3065 Date _ Antony Espinosa Signature: Date (if indicated) CC: ALAN Wagner; Antony Espitia DO ~ Date Dictated: 06/27/24 1447 Date Transcribed: Cardiac Nurse Specialist: RF Signed [facility]05-20-2025 Procedure note [facility] Medical Records Department [address] [place] [address] Operative Report - CC Letter MR#: [id number] Acct: [id number] Name: ANALILIA MELENDREZ Rep #:[id number] : 1960 63 From: Antony Espitia DO [...] DO Cosigner Signature: Date (if indicated) CC: BUCKET TURNER-C Marianna Wagner; Dr. Rolan Romero, DO; Dr. Conrado Pro, DO; Dr. Melonie De La Rosa, DO ~ Date Dictated: 06/27/24 1447 Date Transcribed: Cardiac Nurse Specialist: RF Signed 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 Hx Hospitalization No 05/09/20 19:26 Any Problems [...] take am of surgery PONV PONV - wire bound box machine operator: PONV - wire bound box machine operator Female HX of Motion Sickness HX of N/V After Surgery Non-Smoker Duration of Surgery greater than 60 minutes Number of Risk Factors PONV Score Height & Weight Height & Weight: Anesthesia: Height & Weight Height 5 ft 11 in 06/26/24 22:53 Weight: 75.2 kg 06/27/24 05:39 Body Mass Index (BMI) 23.2 06/27/24 05:39 Respiratory Assessment Respiratory Assessment - wire bound box machine operator: Respiratory Tract Infection Hx - wire bound box machine operator Hx Respiratory Tract Infection No 06/26/24 22:53 STOP Sleep Apnea STOP Sleep Apnea - wire bound box machine operator: STOP Sleep Apnea - wire bound box machine operator Hx Hypertension Yes 06/26/24 00:18 Hx Sleep [...] Tobacco Use History Tobacco Use History - wire bound box machine operator: Tobacco Use History - wire bound box machine operator Tobacco Use Smoking Status Current every day smoker 06/26/24 03:49 Hx Tobacco Use Yes 06/26/24 00:18 Years Smoking Packs Smoked per Day Smoking Cessation Date was within the last 15 years Hx Smoking Cessation Date Hx Smoking Cessation No 06/26/24 00:18 Counseling Hematologic Medial History Hematologic Hx - wire bound box machine operator: Hematologic Medical Hx - receiving checker Hx of Blood Transfusion No 06/26/24 00:18 [...] confused, unrespo /Reproduction History /Reproductive History - wire bound box machine operator: /Reproductive Hx- wire bound box machine operator Hx Now No 06/26/24 22:53 Gestational Age [...] Glycerin/Hypromellose/Polyethylene 2 drp 06/26/24 21:37 06/27/24 12:22 Glycerin/Hypromellose/Kdd890 15 Ml Bottle EACH EYE 2 drp Q1H PRN Administration DRY EYES Hydralazine HCl 5 mg 06/26/24 00:39 Hydralazine 20 Mg/Ml Vial IV Q8H PRN PRN SBP GREATER THAN 160 Protocol Hydralazine HCl 25 mg 06/26/24 14:00 06/27/24 05:04 Hydralazine 25 Mg Tablet PO Not Given TID [facility] Protocol Dextrose 250 mls @ 0 mls/hr 06/26/24 00:39 Dextrose 10%-Water IV .Q0M PRN HYPOGLYCEMIA Protocol As Directed Sodium Chloride 250 mls @ 15 mls/hr 06/26/24 06:11 IV .[id number] PRN Saline Flush Sodium Chloride 250 mls @ 15 mls/hr 06/26/24 06:11 IV .[id number] PRN Additional IVPB Infusion Lactated Ringer's 1,000 mls @ 15 mls/hr 06/27/24 14:15 06/27/24 14:26 IV 15 mls/hr .Q48H KUNAL Administration Insulin Glargine 5 unit 06/26/24 12:00 06/27/24 12:21 Insulin Glargine-Yfgn 100 Unit/Ml Pen SC Not Given 1200 KUNAL Insulin Human Lispro 0 unit 06/26/24 00:39 06/27/24 12:20 Insulin Lispro 100 Unit/Ml Insuln.Pen SC Not Given Q6 [facility] Protocol Lorazepam 0.5 mg 06/26/24 00:39 Lorazepam 2 Mg/Ml Wch Syringe IV Q4H PRN PRN AGITATION Melatonin 6 mg 06/26/24 22:22 06/26/24 22:52 Melatonin 3 Mg Tablet PO 6 mg QHS PRN PRN Administration SLEEP Metoprolol Succinate 25 mg 06/26/24 10:00 06/27/24 08:19 Metoprolol(Xl)Succ 25 Mg Tablet PO Not Given BID [facility] Protocol Morphine Sulfate 2 mg 06/26/24 00:39 [...] Dr Capsule PO Not Given TIDCM [facility] Pantoprazole Sodium 40 mg 06/26/24 22:00 06/27/24 08:19 Pantoprazole Sodium 40 Mg Tablet PO Not Given BID [facility] Polyethylene Glycol 17 gm 06/26/24 12:45 06/27/24 08:18 Polyethylene Glycol 3350 17 Gm Packet PO Not Given BID [facility] Promethazine HCl 25 mg 06/26/24 00:39 Promethazine [...] Mg Tablet PO Not Given DAILY [facility] Protocol Thiamine HCl 100 mg 06/26/24 08:00 06/27/24 08:17 Thiamine Hydrochloride 100 Mg Tablet [facility] Medical History MALIK (acute kidney injury) [...] MD Cosigner Signature: Date CC: ~ Signed [facility]05-20-2025 Progress note [facility] Medical Records Department [address] [place] [address] Progress Note 06/27/24 1444 MR#: [id number] Acct: [id number] Name: ANALILIA MELENDREZ Rep #:[id number] : 1960 63 From: Antony Friend DO PCP: ALAN Wilde Status:ADM I N Location: [place] [address] Progress Note Patient is for upper endoscopy [...] ASA of 3. Visit Charges Inpatient E&M: 52008 Subs Hosp L3 06/27/24 1446 Antony Friend DO Cosigner Signature (if applicable): CC: ~ Signed [facility]05-19-2025 Progress note Author Melnoie De La Rosa [facility] Note Date/Time June 26, 2024 7:44p m [facility] Medical Records Department [address] [place] [address] Progress Note - Hospitalist 06/26/24 0734 MR#: [id number] Acct: [id number] Name: ANALILIA MELENDREZ Rep #:[id number] : 1960 63 From: Melonie De La Rosa DO PCP: ALAN Wilde Status:ADM I N Location: [facility] [id number] Reason for Visit Reason for Visit: [...] % (Auto) Cancelled, Lymph % (Auto) Cancelled, Turner % (Auto) Cancelled, Eos % (Auto) Cancelled, [...] Drop Cells Cancelled, Ovalocytes Cancelled, Stomatocytes Cancelled, Whiteside-Castine Bodies Cancelled, Kristofer Cells Cancelled, Bite Cells [...] % (Auto) 65.3, Lymph % (Auto) 22.1, Turner % (Auto) 11.6 H, Eos % (Auto) [...] Clarity Clear, Urine pH 7.0, Ur Specific [place] 1.010, Urine Protein 15 H, Urine Glucose [...] (Auto) 68.4, Lymph % (Auto) 18.4 L, Turner % (Auto) 11.8 H, Eos % (Auto) [...] Had thoracic dissection and was treated at [facility] History of heroin abuse - Remote -patient states he has been clean for approximately 10 years Tobacco abuse - Encouraged cessation - nicotine patch replacement available DVT prophylaxis - Platelet count is 100,000 - Start Lovenox 40 subcu daily CODE STATUS - Full code Charges/Coding Visit Charges Inpatient E&M: 28459 Subs Hosp L2 06/26/241943 <Electronically signed by Melonie De La Rosa DO> Cosigner Signature (if applicable): CC: ~ Signed [facility] Work Phone: 1(323) 914-240405-19-2025 Consult note Author Antony Friend [facility] Note Date/Time June 26, 2024 6:15p m [facility] Medical Records Department [address] [place] [address] Consultation - GI 06/26/24 1758 MR#: [id number] Acct: [id number] Name: ANALILIA MELENDREZ Rep #:[id number] : 1960 63 From: Antony Espitia DO PCP: Marianna Wagner NP-C Status:ADM I N Location: [place] [address] HPI Consult Data Date of Consult: 06/26/24 [...] a SAG gradient could not be calculated. [facility] Medical History MALIK (acute kidney injury) [...] % (Auto) 65.3, Lymph % (Auto) 22.1, Turner % (Auto) 11.6 H, Eos % (Auto) [...] Clarity Clear, Urine pH 7.0, Ur Specific [place] 1.010, Urine Protein 15 H, Urine Glucose [...] (Auto) 68.4, Lymph % (Auto) 18.4 L, Turner % (Auto) 11.8 H, Eos % (Auto) [...] mL of light colored fluid. [facility] Assessment & Plan Assessment/Plan (1) [...] this year done by Dr. Vazquez at [facility] for indication of iron deficiency anemia, [...] IV morphine in ER. 12. CAD; s/p MA - Noted. 13. History of mechanical aortic [...] aneurysm with dissection (~2005 & ~2016 at [facility]) - Noted. 19. History of alcoholic [...] 75 minutes. Charges/Coding Visit Charges Inpatient E&M: 36810 Init Hosp L3 06/26/241814 <Electronically signed by Antony Espitia DO> Cosigner Signature (if applicable): CC: ALAN Wagner; Dr. Rolan Romero DO~ Signed [facility] Work Phone: 1(469) 872-332105-19-2025 Progress note [facility] Medical Records Department [address] [place] [address] Progress Note - Hospitalist 06/26/24 0734 MR#: [id number] Acct: [id number] Name: ANALILIA MELENDREZ Rep #:[id number] : 1960 63 From: Melonie De La Rosa DO PCP: ALAN Wilde Status:ADM I N Location: [place] [address] Reason for Visit Reason for Visit: Abdominal [...] % (Auto) Cancelled, Lymph % (Auto) Cancelled, Turner % (Auto) Cancelled, Eos % (Auto) Cancelled, [...] Drop Cells Cancelled, Ovalocytes Cancelled, Stomatocytes Cancelled, Whiteside-Castine Bodies Cancelled, Kristofer Cells Cancelled, Bite Cells [...] % (Auto) 65.3, Lymph % (Auto) 22.1, Turner % (Auto) 11.6 H, Eos % (Auto) [...] Clarity Clear, Urine pH 7.0, Ur Specific [place] 1.010, Urine Protein 15 H, Urine Glucose [...] (Auto) 68.4, Lymph % (Auto) 18.4 L, Turner % (Auto) 11.8 H, Eos % (Auto) [...] Had thoracic dissection and was treated at [facility] History of heroin abuse - Remote -patient states he has been clean for approximately 10 years Tobacco abuse - Encouraged cessation - nicotine patch replacement available DVT prophylaxis - Platelet count is 100,000 - Start Lovenox 40 subcu daily CODE STATUS - Full code Charges/Coding Visit Charges Inpatient E&M: 60624 Subs Hosp L2 06/26/241943 Cosigner Signature (if applicable): CC: ~ Signed [facility]05-19-2025 Consult note [facility] Medical Records Department [address] [place] [address] Consultation - GI 06/26/24 1758 MR#: [id number] Acct: [id number] Name: ANALILIA MELENDREZ Rep #:[id number] : 1960 63 From: Antony Espitia DO PCP: Marianna Wagner BUCKET TURNER-C Status:ADM I N Location: [place] [address] HPI Consult Data Date of Consult: 06/26/24 [...] a SAG gradient could not be calculated. [facility] Medical History MALIK (acute kidney injury) [...] % (Auto) 65.3, Lymph % (Auto) 22.1, Turner % (Auto) 11.6 H, Eos % (Auto) [...] Clarity Clear, Urine pH 7.0, Ur Specific [place] 1.010, Urine Protein 15 H, Urine Glucose [...] (Auto) 68.4, Lymph % (Auto) 18.4 L, Turner % (Auto) 11.8 H, Eos % (Auto) [...] mL of light colored fluid. Reading Location: [facility]IR-1 Assessment & Plan Assessment/Plan (1) Chronic alcohol [...] this year done by Dr. Vazquez at [facility] for indication of iron deficiency anemia, [...] IV morphine in ER. 12. CAD; s/p MA - Noted. 13. History of mechanical aortic [...] aneurysm with dissection (~2005 & ~2017 at [facility]) - Noted. 19. History of alcoholic [...] 75 minutes. Charges/Coding Visit Charges Inpatient E&M: 78086 Init Hosp L3 06/26/24 5911 Cosigner Signature (if applicable): CC: ALAN aWgner; Dr. Rolan Romero DO~ Signed [facility]05-19-2025 Radiology Diagnostic study note [facility] Imaging Services [address] [place] [address] Paracentesis with US MR#: [id number] Acct: [id number] Name: ANALILIA MELENDREZ Rep #: [id number] : 1960 M 63 From: Francis Campos MD PCP: ALAN Wilde Status: ADM I N Study:Paracentesis with US Date of Exam: 06/26/24 Exam# [id number] Ordering Dr: Conrado Geronimo DO PROCEDURE: PARACENTESIS WITH US 06/26/2024 REASON FOR EXAM: LARGE ABDOMINAL PELVIC ASCITES W/ CHRONIC ETOH ABU TECHNIQUE: Paracentesis. The procedure as well as the benefits and possible complications including infection were explained to the patient. Informed consent was obtained. The overlying skin was prepped and draped in the usual sterile fashion. Following local anesthetic application, a 5 Syrian catheter was placed into the abdomen. 2050 mL of light colored fluid was aspirated. A sample was sent to the laboratory. COMPARISON: None FINDINGS: Successful paracentesis US/Paracentesis with US IMPRESSION: Successful paracentesis with removal of 2050 mL of light colored fluid. Reading Location: [facility] CC: ALAN Wagner; Dr. Conrado Pro DO ~ Cardiac Nurse Specialist: Signed [facility]05-19-2025 Telephone encounter Note* Telephone Encounter - Marianna Wagner APRN.CNP - 06/26/2024 9:57 AM EDT Will address in next OV. [facility]05-19-2025 Miscellaneous Notes* Telephone Encounter - Marianna Wagner [...] Alc. Andrew Ponce MA documented [facility] History and physical note Author Conrado Fraser [facility] Note Date/Time June 26, 2024 6:34a m [facility] Medical Records Department [address] [place] [address] H&P Exam - Hospitalist 06/25/242128 MR#: [id number] Acct: [id number] Name: ANALILIA MELENDREZ JAMARI Rep #:[id number] : 1960 63 From: Conrado Gonzalez DO PCP: Marianna Wagner BUCKET TURNERMiahC Status:ADM I N Location: [place] [address] HPI - General General Date of Admission: [...] metformin, diabetic neuropathy; on gabapentin, CAD; s/p MA, history of mechanical aortic valve replacement (2014) followed by bioprosthetic aortic valve replacement (~2016), history of SSS; s/p PPM (2017), history of RBBB, history of NSVT, history of AAA, history of thoracic aortic aneurysm with dissection (~2005 & ~2016 at [facility]), chronic EtOHabuse; with patient admitting to ~2-3 forty ounce beers daily on supplemental thiamine and folate, history of alcoholic hepatitis, history of chronic pancreatitis, history of seizures; likely due to EtOH withdrawal, history of MALIK, GERD with hiatal hernia; on pantoprazole twice daily, history of hernia; s/p repair and generalized anxiety who presents to [facility] ERcomplaining of abdominal pain, chronic diarrhea and chronic alcohol abuse. Mr. Melendrez reports his symptoms began several months prior to admission with chronic diarrhea which includes an outpatient workup including EGD and colonoscopy in March of this year done by Dr. Vazquez at [facility] for indication of iron deficiency anemia, [...] is expected to extend beyond 2 midnights. [facility] Medical History MALIK (acute kidney injury) [...] % (Auto) Cancelled, Lymph % (Auto) Cancelled, Turner % (Auto) Cancelled, Eos % (Auto) Cancelled, [...] Drop Cells Cancelled, Ovalocytes Cancelled, Stomatocytes Cancelled, Whiteside-Castine Bodies Cancelled, Kristofer Cells Cancelled, Bite Cells [...] % (Auto) 65.3, Lymph % (Auto) 22.1, Turner % (Auto) 11.6 H, Eos % (Auto) [...] Clarity Clear, Urine pH 7.0, Ur Specific [place] 1.010, Urine Protein 15 H, Urine Glucose [...] this year done by Dr. Vazquez at [facility] for indication of iron deficiency anemia, [...] IV morphine in ER. 12. CAD; s/p MA - Noted. 13. History of mechanical aortic [...] aneurysm with dissection (~2005 & ~2017 at [facility]) - Noted. 19. History of alcoholic [...] 75 minutes. Charges/Coding Visit Charges Inpatient E&M: 80821 Init Hosp 06/26/24 0634 <Electronically signed by Conrado Pro DO> Cosigner Signature (if applicable): CC: ALAN Wagner; Dr. Conrado Pro DO~ Signed [facility] Work Phone: 1(473) 671-393205-19-2025 Telephone encounter Note* Telephone Encounter - Suzi Haynes MA - 06/26/2024 7:16 AM EDT Patient is currently admitted, would you like us to put a new reminder in. Please advise. Suzi Haynes MA [facility]05-19-2025 Telephone encounter Note* Telephone Encounter - Suzi Haynes MA - 06/26/2024 7:16 AM EDT ----- Message from Andrew Horowitz MA sent at 03/28/2024 8:14 AM EST ----- Remind pt. Time to recheck Alc. Andrew Ponce MA [facility]05-19-2025 History and physical note [facility] Medical Records Department [address] [place] [address] H&P Exam - Hospitalist 06/25/242128 MR#: [id number] Acct: [id number] Name: ANALILIA MELENDREZ Rep #:[id number] : 1960 63 From: Conrado Gonzalez DO PCP: Marianna Wagner, [facility]CKET TURNER-C Status:ADM I N Location: [place] [address] HPI - General General Date of Admission: [...] metformin, diabetic neuropathy; on gabapentin, CAD; s/p MA, history of mechanical aortic valve replacement (2014) followed by bioprosthetic aortic valve replacement (~2016), history of SSS; s/p PPM (2016), history of RBBB, history of NSVT, history of AAA, history of thoracic aortic aneurysm with dissection (~2005 & ~2016 at [facility]), chronic EtOHabuse; with patient admittingto ~2-3 forty ounce beers daily on supplemental thiamine and folate, history of alcoholic hepatitis, history of chronic pancreatitis, history of seizures; likely due to EtOH withdrawal, history of MALIK , GERD with hiatal hernia; on pantoprazole twice daily, history of hernia; s/p repair and generalized anxiety who presents to [facility] ERcomplaining of abdominal pain, chronic diarrhea and chronic alcohol abuse. Mr. Melendrez reports his symptoms began several months prior to admission with chronic diarrhea which includes an outpatient workup including EGD and colonoscopy in March of this year done by Dr. Vazquez at [facility] for indication of iron deficiency anemia, [...] is expected to extend beyond 2 midnights. [facility] Medical History MALIK (acute kidney injury) [...] % (Auto) Cancelled, Lymph % (Auto) Cancelled, Turner % (Auto) Cancelled, Eos % (Auto) Cancelled, [...] Drop Cells Cancelled, Ovalocytes Cancelled, Stomatocytes Cancelled, Whiteside-Castine Bodies Cancelled, [place] Cells Cancelled, Bite Cells Cancelled, Crenated Cell [...] % (Auto) 65.3, Lymph % (Auto) 22.1, Turner % (Auto) 11.6 H, Eos % (Auto) [...] 0.46, AST 62 H, ALT 32, Alkaline [id number], Total Protein 5.0 L, Albumin 2.5 L, Globulin 2.5, Albumin/Globulin Ratio 1.0, Lipase 6L, b-Hydroxybutyric mmol/L 0.1 06/25/24 19:17: POC Glucose 348 H 06/25/24 19:23: Urine Color Yellow, Urine Clarity Clear, Urine pH 7.0, Ur Specific [place] 1.010, Urine Protein 15 H, Urine Glucose [...] this year done by Dr. Vazquez at [facility] for indication of iron deficiency anemia, [...] IV morphine in ER. 12. CAD; s/p MA - Noted. 13. History of mechanical aortic [...] aneurysm with dissection (~2005 & ~2017 at [facility]) - Noted. 19. History of alcoholic [...] 75 minutes. Charges/Coding Visit Charges Inpatient E&M: 23547 Init Hosp L3 06/26/24 0613 Cosigner Signature (if applicable): CC: ALAN Wagner; Dr. Conrado Pro, DO~ Signed [facility]05-19-2025 Discharge summary Author Rolan Romero [facility] Note Date/Time June 25, 2024 11:[address] [facility] Medical Records Department [address] [place] [address] Emergency Department Summary 06/25/24 MR#: [id number] Acct: [id number] Name: ANALILIA MELENDREZ Rep #:[id number] : 1960 63 From: Rolan crowellett PCP: Marianna Wagner, [facility] TURNER-C Status:ADM I N Location: [place] [address] HPI History of Present Illness Chief Complaint: [...] intact Psych: Cooperative, appropriate mood and affect [facility] Medical History MALIK (acute kidney injury) Seizures [...] had a EGD and colonoscopy done at [facility]. Will Clinisync for these results. Differential [...] % (Auto) Cancelled Lymph % (Auto) Cancelled Turner % (Auto) Cancelled Eos % (Auto) Cancelled [...] Drop Cells Cancelled Ovalocytes Cancelled Stomatocytes Cancelled Whiteside-Castine Bodies Cancelled [place] Cells Cancelled Bite Cells Cancelled Crenated Cell [...] Color Urine Clarity Urine pH Ur Specific [place] Urine Protein Urine Glucose (UA) Urine Ketones [...] % (Auto) 65.3 Lymph % (Auto) 22.1 Turner % (Auto) 11.6 H Eos % (Auto) [...] Target Cells Tear Drop Cells Ovalocytes Stomatocytes Whiteside-Castine Bodies [place] Cells Bite Cells Crenated Cell Acanthocytes (Spur) [...] Color Urine Clarity Urine pH Ur Specific [place] Urine Protein Urine Glucose (UA) Urine Ketones [...] (Auto) Neut % (Auto) Lymph % (Auto) Turner % (Auto) Eos % (Auto) Baso % [...] Target Cells Tear Drop Cells Ovalocytes Stomatocytes Whiteside-Castine Bodies Kristofer Cells Bite Cells Crenated Cell Acanthocytes (Spur) Rouleaux Schistocytes Sodium Potassium Chloride Carbon Dioxide Anion Gap BUN Creatinine Estim Creat Clear Calc Est GFR (MDRD) Non-Af BUN/Creatinine Ratio Glucose Lactic Acid Calcium Magnesium Total Bilirubin AST ALT Alkaline Phosphatase Total Protein Albumin Globulin Albumin/Globulin Ratio Lipase b-Hydroxybutyric mmol/L Urine Color Yellow Urine Clarity Clear Urine pH 7.0 Ur Specific [place] 1.010 Urine Protein 15 H Urine Glucose [...] Provider: Marianna Wagner NP Referrals: Marianna Wagner BUCKET TURNER, [facility] TURNER-C [Primary Care Provider] - Print Language: Comoran What to do if you have Problems For any increased pain, shortness of breath, bleeding, nausea or vomiting, chestpain, or any unexpected problems, contact your Primary Care Provider. Call [facility] ([phone]) or report to the closest Emergency Room. Call 911 if necessary. 06/25/24 0688 <Electronically signed by Rolan Romero DO> Cosigner Signature (if applicable): CC: ALAN Wagner ~ Signed [facility] Work Phone: 1(141) 682-655705-19-2025 Evaluation note* Diagnosis Onset Date Resolution Status [...] Chronic pancreatitis chronic June 25, 2024 10:15pm [facility] Work Phone: 1(282) 547-893905-19-2025 Evaluation note* Diagnosis Onset Date Resolution Status [...] reduced ejection fraction) acute June 092024 7:47pm AMLIK (acute kidney injury) acute June 30, 2024 [...] 30, 2024 7:47pm Thrombocytopenia inactive June 7:47pm [facility] Work Phone: 1(849) 590-905405-19-2025 Evaluation note* Diagnosis Onset Date Resolution Status [...] 2024 2:06pm Suicidal ideation acute July 2:06pm [facility] Work Phone: 1([phone]) 114-595805-19-2025 Evaluation note* Diagnosis Onset Date Resolution Status [...] 2024 2:06pm Suicidal ideation acute July 2:06pm [facility] Work Phone: 1(439) 789-493205-19-2025 Evaluation note* Diagnosis Onset Date Resolution Status [...] 2024 2:06pm Suicidal ideation resolved July 2:06pm [facility] Work Phone: 1(661) 405-182605-19-2025 Evaluation note* Diagnosis Onset Date Resolution Status [...] 8:44pm History of aortic aneurysm repair ac emmonak August 01, 2024 8:44pm Hypoxia acute August 01 8:44pm Elevated troponin resolved August 012024 8:44pm [facility] Work Phone: 1(717) 534-404305-19-2025 Evaluation note* Diagnosis Onset Date Resolution Status [...] hepatic disorder acute August 29, 2024 12:38am [facility] Work Phone: 1(530) 396-538205-19-2025 Evaluation note* Diagnosis Onset Date Resolution Status [...] 28 1:07pm Chronic pancreatitis chronic 2024 1:07pm [facility] Work Phone: 1(691) 327-574005-19-2025 Evaluation note* Diagnosis Onset Date Resolution Status [...] heart failure acute October 12 025 4:09pm [facility] Work Phone: 1(567) 335-341105-18-2025 Discharge summary [facility] Medical Records Department [address] [place] [address] Emergency Department Summary 06/25/24 MR#: [id number] Acct: [id number] Name: ANALILIA MELENDREZ Rep #:[id number] : 1960 63 From: Rolan stock DO PCP: ALAN Wilde Status:ADM I N Location: [place] [address] HPI History of Present Illness Chief Complaint: [...] intact Psych: Cooperative, appropriate mood and affect [facility] Medical History MALIK (acute kidney injury) Seizures [...] had a EGD and colonoscopy done at [facility]. Will Clinisync for these results. Differential [...] % (Auto) Cancelled Lymph % (Auto) Cancelled Turner % (Auto) Cancelled Eos % (Auto) Cancelled [...] Drop Cells Cancelled Ovalocytes Cancelled Stomatocytes Cancelled Whiteside-Castine Bodies Cancelled Kristofer Cells Cancelled Bite Cells [...] Color Urine Clarity Urine pH Ur Specific [place] Urine Protein Urine Glucose (UA) Urine Ketones [...] % (Auto) 65.3 Lymph % (Auto) 22.1 Turner % (Auto) 11.6 H Eos % (Auto) [...] Target Cells Tear Drop Cells Ovalocytes Stomatocytes Whiteside-Castine Bodies [place] Cells Bite Cells Crenated Cell Acanthocytes (Spur) [...] Color Urine Clarity Urine pH Ur Specific [place] Urine Protein Urine Glucose (UA) Urine Ketones [...] (Auto) Neut % (Auto) Lymph % (Auto) Turner % (Auto) Eos % (Auto) Baso % [...] Target Cells Tear Drop Cells Ovalocytes Stomatocytes Whiteside-Castine Bodies Kristofer Cells Bite Cells Crenated Cell Acanthocytes (Spur) Rouleaux Schistocytes Sodium Potassium Chloride Carbon Dioxide Anion Gap BUN Creatinine Estim Creat Clear Calc Est GFR (MDRD) Non-Af BUN/Creatinine Ratio Glucose Lactic Acid Calcium Magnesium Total Bilirubin AST ALT Alkaline Phosphatase Total Protein Albumin Globulin Albumin/Globulin Ratio Lipase b-Hydroxybutyric mmol/L Urine Color Yellow Urine Clarity Clear Urine pH 7.0 Ur Specific [place] 1.010 Urine Protein 15 H Urine Glucose [...] Marianna Wagner NP Referrals: Marianna Wagner NP, [facility] TURNER-C [Primary Care Provider] - Print Language: Comoran What to do if you have Problems For any increased pain, shortness of breath, bleeding, nausea or vomiting, chestpain, or any unexpected problems, contact your Primary Care Provider. Call [facility] ([phone]) or report tothe closest Emergency Room. Call 911 if necessary. 06/25/24 0063 Cosigner Signature (if applicable): CC: ALAN Wagner ~ Signed [facility]05-18-2025 Radiology Diagnostic study note [facility] Imaging Services [address] [place] [address] Abdomen/Pelvis W IV Cont ONLY MR#: [id number] Acct: [id number] Name: ANALILIA MELENDREZ Rep #: [id number] : 1960 M 63 From: Lawanda Bernstein MD PCP: ALAN Wilde Status: REG E R Study:Abdomen/Pelvis W IV Cont ONLY Date of E xam: 06/25/24 Exam# [id number] Ordering Dr: Rolan De Souza DO PROCEDURE: [...] of developing HCC. Reading Location: [place] CC: BUCKET TURNER-C Marianna Wagner; Dr. Rolan Romero DO ~ Cardiac Nurse Specialist: Signed [facility]05-18-2025 Discharge summary Author Rolan Romero [facility] Note Date/Time June 25, 2024 11:[address] [facility] Medical Records Department [address] [place] [address] Emergency Department Summary 06/25/24 MR#: [id number] Acct: [id number] Name: ANALILIA MELENDREZ Rep #:[id number] : 1960 63 From: Rolan stock DO PCP: ALAN Wilde Status:ADM I N Location: [place] [address] HPI History of Present Illness Chief Complaint: [...] intact Psych: Cooperative, appropriate mood and affect [facility] Medical History MALIK (acute kidney injury) Seizures [...] had a EGD and colonoscopy done at [facility]. Will Clinisync for these results. Differential [...] % (Auto) Cancelled Lymph % (Auto) Cancelled Turner % (Auto) Cancelled Eos % (Auto) Cancelled [...] Drop Cells Cancelled Ovalocytes Cancelled Stomatocytes Cancelled Whiteside-Castine Bodies Cancelled [place] Cells Cancelled Bite Cells Cancelled Crenated Cell [...] Color Urine Clarity Urine pH Ur Specific [place] Urine Protein Urine Glucose (UA) Urine Ketones [...] % (Auto) 65.3 Lymph % (Auto) 22.1 Turner % (Auto) 11.6 H Eos % (Auto) [...] Target Cells Tear Drop Cells Ovalocytes Stomatocytes Whiteside-Castine Bodies Kristofer Cells Bite Cells Crenated Cell [...] Color Urine Clarity Urine pH Ur Specific [place] Urine Protein Urine Glucose (UA) Urine Ketones [...] (Auto) Neut % (Auto) Lymph % (Auto) Turner % (Auto) Eos % (Auto) Baso % [...] Target Cells Tear Drop Cells Ovalocytes Stomatocytes Whiteside-Castine Bodies [place] Cells Bite Cells Crenated Cell Acanthocytes (Spur) Rouleaux Schistocytes Sodium Potassium Chloride Carbon Dioxide Anion Gap BUN Creatinine Estim Creat Clear Calc Est GFR (MDRD) Non-Af BUN/Creatinine Ratio Glucose Lactic Acid Calcium Magnesium Total Bilirubin AST ALT Alkaline Phosphatase Total Protein Albumin Globulin Albumin/Globulin Ratio Lipase b-Hydroxybutyric mmol/L Urine Color Yellow Urine Clarity Clear Urine pH 7.0 Ur Specific [place] 1.010 Urine Protein 15 H Urine Glucose [...] Provider: Marianna Wagner NP Referrals: Marianna Wagner BUCKET TURNER, BUCKET TURNER-C [Primary Care Provider] - Print Language: Comoran What to do if you have Problems For any increased pain, shortness of breath, bleeding, nausea or vomiting, chestpain, or any unexpected problems, contact your Primary Care Provider. Call [facility] ([phone]) or report to the closest Emergency Room. Call 911 if necessary. 06/25/24 8573 <Electronically signed by Rolan Romero DO> Cosigner Signature (if applicable): CC: BUCKET TURNERAstrid Wagner ~ Signed [facility] Work Phone: [phone]) 782-962905-14-2025 Telephone encounter Note* Telephone Encounter - Andrew Ponce MA - 06/21/2024 2:32 PM EDT Pt. Lm on stating awhile back you put him on antibiotics for a UTI and he would like a refill. Please advise. Andrew Ponce MA [facility]05-14-2025 Miscellaneous Notes* Telephone Encounter - Andrew Ponce MA - 06/21/2024 2:32 PM EDT Pt. Lm on stating awhile back you put him on antibiotics for a UTI and he would like a refill. Please advise. Andrew Ponce MA documented [facility] encounter[facility] Telephone encounter Note * Telephone Encounter - Suzi Haynes MA - 05/29/2024 9:06 AM EDT pharmacy electronically requesting refills as follows: Last seen 12/27/23 . Last refill metoprolol 04/10/24, pantoprazole 02/21/24 . Requested Prescriptions Pending Prescriptions Disp Refills metoprolol tartrate, short acting, (LOPRESSOR) 50 mg tablet [Pharmacy Med Name: METOPROLOL [id number] TABS] 60 tablet 0 Sig: TAKE ONE TABLET BY MOUTH TWICE A DAY pantoprazole DR (PROTONIX) 40 mg tablet [Pharmacy Med Name: PANTOPRAZOLE SODIUM 40MG TBEC] 60 tablet 2 Sig: TAKE ONE TABLET BY MOUTH TWICE A DAY 3O MINUTES BEFORE MEAL Please review and advise. Suzi Haynes MA [facility]04-21-2025 Miscellaneous Notes* Telephone Encounter - Suzi Haynes MA - 05/29/2024 9:06 AM EDT pharmacy electronically requesting refills as follows: Last seen 12/27/23 . Last refill metoprolol 04/10/24, pantoprazole 02/21/24 . Requested Prescriptions Pending Prescriptions Disp Refills metoprolol tartrate, short acting, (LOPRESSOR) 50 mg tablet [Pharmacy Med Name: METOPROLOL [id number] TABS] 60 tablet 0 Sig: TAKE ONE TABLET BY MOUTH TWICE A DAY pantoprazole DR (PROTONIX) 40 mg tablet [Pharmacy Med Name: PANTOPRAZOLE SODIUM 40MG TBEC] 60 tablet 2 Sig: TAKE ONE TABLET BY MOUTH TWICE A DAY 3O MINUTES BEFORE MEAL Please review and advise. Suzi Haynes MA documented [facility] Telephone encounter Note * Telephone Encounter - Andrew Ponce MA - 05/15/2024 8:01 AM EDT pharm requesting refills: Last office visit 12/27/2023. Last refill 04/10/2024 nov none Requested Prescriptions Pending Prescriptions Disp Refills ramipril (ALTACE) 10 mg capsule [Pharmacy Med Name: RAMIPRIL 10MG CAPS] 30 capsule 0 Sig: TAKE ONE CAPSULE BY MOUTH EVERY DAY Please review and advise. Andrew Ponce MA [facility]04-07-2025 Miscellaneous Notes* Telephone Encounter - Andrew Ponce MA - 05/15/2024 8:01 AM EDT pharm requesting refills: Last office visit 12/27/2023. Last refill 04/10/2024 nov none Requested Prescriptions Pending Prescriptions Disp Refills ramipril (ALTACE) 10 mg capsule [Pharmacy Med Name: RAMIPRIL 10MG CAPS] 30 capsule 0 Sig: TAKE ONE CAPSULE BY MOUTH EVERY DAY Please review and advise. Andrew Ponce MA documented in this encounterSelect [facility] Telephone encounter Note * Telephone Encounter - Giulia Rogel MA - 04/13/2024 3:50 PM EST Patient called he was at the metal [facility] and BP was 180/110 he states he has been having headachesand dizziness. He denies other symptoms patient would like to know if he needs a med change Giulia Rogel MA [facility]03-06-2025 Miscellaneous Notes* Telephone Encounter - Giulia Rogel MA - 04/13/2024 3:50 PM EST Patient called he was at the metal off [facility] and BP was 180/110 he states he has been having headachesand dizziness. He denies other symptoms patient would like to know if he needs a med change Giulia Rogel MA documented in this encounterSelect [facility] History of Present illness Narrative* Vandana [...] uses NSAIDs. Occasional reflux. He was in [facility] for 6 weeks in june for rehab [...] ascending aorta repair Hyperlipidemia Hypertension Non-ST elevation MA (NSTEMI) (HCC) 06/24 Pacemaker Paroxysmal atrial fibrillation [...] BY MOUTH EVERY DAY 90 tablet 1 yhhnpw-umrehtvf-vnqiliu (CREON 36) 36,000-114,000- 180,000 unit delayed release [...] 4 Blood-Glucose Meter,Continuous (FREESTYLE MANGO 3 READER) [facility] Use to check blood sugar at least [...] or concerns in the meantime. Vandana Edwards APRN.ACCOUNT SUPPORT ASSOCIATE I spent a total of 30 minutes on the date of the service which included preparing to see the patient, [id number] patient care, completing clinical documentation, counseling and [...] evaluation of this patient. documented in this encounterSelect [facility]25 Telephone encounter Note * Telephone Encounter - [...] 50 mg tablet [Pharmacy Med Name: METOPROLOL [id number] TABS] 60 tablet 0 Sig: TAKE ONE TABLET BY MOUTH TWICE A DAY ramipril (ALTACE) 10 mg capsule [Pharmacy Med Name: RAMIPRIL 10MG CAPS] 30 capsule 0 Sig: TAKE ONE CAPSULE BY MOUTH EVERY DAY Please review and advise. Suzi Haynes MA [facility]03-03-2025 Miscellaneous Notes* Telephone Encounter - Suzi Haynes [...] 50 mg tablet [Pharmacy Med Name: METOPROLOL [id number] TABS] 60 tablet 0 Sig: TAKE ONE TABLET BY MOUTH TWICE A DAY ramipril (ALTACE) 10 mg capsule [Pharmacy Med Name: RAMIPRIL 10MG CAPS] 30 capsule 0 Sig: TAKE ONE CAPSULE BY MOUTH EVERY DAY Please review and advise. Suzi Haynes MA documented in this encounterSelect [facility]02-[facility]-2025 Attending History and physical note* Phoebe Vazquez MD - 04/05/2024 2:15 PM EST UPDATED HISTORY AND PHYSICAL EXAMINATION SERVICE DATE: 04/05/2024 SERVICE TIME: 12:15 Participation of a fellow, resident, medical student, or advanced practice provider student in performing the sensitive examination was discussed with the patient or authorized instruments sales representative. The patient or authorized instruments sales representative has agreed to proceed with the [...] [facility] / Outside records reviewed. Latest Ref [facility] 10/15/2023 WBC 3.70 - 11.00 [...] Abs Lymph 1.00 - 4.00 k/uL 1.82 Turner% % 11.0 Abs Turner <0.87 k/uL 0.51 Eosin% % 0.0 Abs [...] ascending aorta repair Hyperlipidemia Hypertension Non-ST elevation MA (NSTEMI) (HCC) 06/24 Pacemaker Paroxysmal atrial fibrillation [...] No Known Allergies Medications: CURRENT MEDICATIONS Insulin [place], Disposable, (BD ULTRA-FINE NORBERTO PEN NEEDLE) 32 [...] meals and 1 pill with snacks - dddcwn-ypnwhsiy-grmyfli (CREON 36) 36,000-114,000- 180,000 unit delayed release [...] the patient has no further questions. . [facility] Work Phone: 1(695) 347-751402-26-2025 History and physical note* Phoebe Vazquez MD [...] Abs Lymph 1.00 - 4.00 k/uL 1.82 Turner% % 11.0 Abs Turner <0.87 k/uL 0.51 Eosin% % 0.0 Abs [...] ascending aorta repair Hyperlipidemia Hypertension Non-ST elevation MA (NSTEMI) (HCC) 06/24 Pacemaker Paroxysmal atrial fibrillation [...] No Known Allergies Medications: CURRENT MEDICATIONS Insulin [place], Disposable, (BD ULTRA-FINE NORBERTO PEN NEEDLE) 32 [...] daily. Blood-Glucose Meter,Continuous (FREESTYLE MANGO 3 READER) [facility] Use to check blood sugar at least [...] meals and 1 pill with snacks - vrrdsp-avgpzmdr-tbomkme (CREON 36) 36,000-114,000- 180,000 unit delayed release [...] the patient has no further questions. . [facility]02-26-2025 History and physical note* Phoebe Vazquez MD - 04/05/2024 2:15 PM EST UPDATED HISTORY AND PHYSICAL EXAMINATION SERVICE DATE: 04/05/2024 SERVICE TIME: 12:15 Participation of a fellow, resident, medical student, or advanced practice provider student in performing the sensitive examination was discussed with the patient or authorized instruments sales representative. The patient or authorized instruments sales representative has agreed to proceed with the [...] Abs Lymph 1.00 - 4.00 k/uL 1.82 Turner% % 11.0 Abs Turner <0.87 k/uL 0.51 Eosin% % 0.0 Abs [...] ascending aorta repair Hyperlipidemia Hypertension Non-ST elevation MA (NSTEMI) (HCC) 06/24 Pacemaker Paroxysmal atrial fibrillation [...] No Known Allergies Medications: CURRENT MEDICATIONS Insulin [place], Disposable, (BD ULTRA-FINE NORBERTO PEN NEEDLE) 32 [...] daily. Blood-Glucose Meter,Continuous (FREESTYLE MANGO 3 READER) [facility] Use to check blood sugar at least [...] meals and 1 pill with snacks - yzmntw-jlowglxx-hlcfqxm (CREON 36) 36,000-114,000- 180,000 unit delayed release [...] Abs Lymph 1.00 - 4.00 k/uL 1.82 Turner% % 11.0 Abs Turner <0.87 k/uL 0.51 Eosin% % 0.0 Abs [...] ascending aorta repair Hyperlipidemia Hypertension Non-ST elevation MA (NSTEMI) (HCC) 06/24 Pacemaker Paroxysmal atrial fibrillation [...] No Known Allergies Medications: CURRENT MEDICATIONS Insulin [place], Disposable, (BD ULTRA-FINE NORBERTO PEN NEEDLE) 32 [...] daily. Blood-Glucose Meter,Continuous (FREESTYLE MANGO 3 READER) [facility] Use to check blood sugar at least [...] meals and 1 pill with snacks - qjmgzy-bqbsmffv-kqforxl (CREON 36) 36,000-114,000- 180,000 unit delayed release [...] no further questions. . documented in this encounterSelect [facility]25 History of Present illness Narrative* Marta Rosado Work Adjustment Instructor - 04/05/2024 2:15 PM ESTSummary: Pacemaker Check Pacemaker checked with [employer] and data transmitted. Spoke to rep who will fax report directly tothe floor. Floor notified. documented in this encounterSelect [facility]02-26-2025 NoteHNO ID: [id number] Author: MARTA ROSADO Work Adjustment Instructor Service: Clinical Cardiology Author Type: Work Adjustment Instructor Type: Progress Notes Filed: 04/05/2024 11:41 Note Text: Summary: Pacemaker Check Pacemaker checked with [employer] and data transmitted. Spoke to rep who will fax report directly to the floor. [facility] notified.[facility]Kmvtusvx06[facility]7461 Telephone encounter Note* Telephone Encounter - Sigrid Clements RN - 03/31/2024 8:47 AM EST Patient called in and left message, would like to speak to someone regarding medication and prep prior to procedure next week. Attempted callback, no answer, LVM with CB number to office [facility]02-21-2025 Miscellaneous Notes* Telephone Encounter - Sigrid Clements RN - 03/31/2024 8:47 AM EST Patient called in and left message, would like to speak to someone regarding medication and prep prior to procedure next week. Attempted callback, no answer, LVM with CB number to office documented in this encounterSelect [facility] [place]02-19-2025 Telephone encounter Note * Telephone Encounter - Tiara Foote - 03/29/2024 1:40 PM EST I called and spoke to Analilia who did not realize he had these appointments scheduled today, he rescheduled for 04/12/24 @ 9:45 am lab work and 10:00 am appointment Tiara Severino [facility]02-19-2025 Miscellaneous Notes* Telephone Encounter - Tiara Foote [...] his scopes ? Thank you, Vandana Edwards APRN.ACCOUNT SUPPORT ASSOCIATE documented in this encounterSelect Medical [facility] [place]02-19-2025 Telephone encounter Note * Telephone Encounter - Vandana Edwards - 03/29/2024 1:08 PM EST Patient was No Show for todays (03/29/2024) appointment. Can we make sure he is rescheduled for labs and OV sometime the first week in april after he has his scopes ? Thank you, Vandana Edwards APRN.ACCOUNT SUPPORT ASSOCIATE [facility] Work Phone: [phone]) 735-911902-18-2025 Telephone encounter Note* Telephone Encounter - Andrew Ponce MA - 03/28/2024 8:03 AM EST Patient notified . Reminder placed. Andrew Ponce MA [facility]02-18-2025 Miscellaneous Notes* Telephone Encounter - Andrew Ponce [...] Recheck in 3 months. documented in this encounterSelect [facility] [place]02-17-2025 Telephone encounter Note * Telephone Encounter - Marianna Wagner APRN.ACCOUNT SUPPORT ASSOCIATE - 03/27/2024 2:48 PM EST A1C increased to 7.6. Will need to increase his daily Glargine insulin to 15 units daily. I am also going to change him to Metformin XR at 1,000 mg daily. Rx sent in. Recheck in 3 months. [facility]02-14-2025 Telephone encounter Note* Telephone Encounter - Gail Varela - 03/24/2024 11:17 AM EST Thank You Austin! [facility]02-14-2025 Miscellaneous Notes* Telephone Encounter - Gail Varela - 03/24/2024 11:17 AM EST Thank You Austin! * Telephone Encounter - Morenita Manuel RN - 03/24/2024 9:26 AM EST Patient call. EGD/ Colonoscopy with Dr Vazquez 04/05/24. Has questions regarding his prep. Would like a call. Thanks [phone] (home) [phone] (cell) documented in this encounterSelect [facility] [place]02-14-2025 Telephone encounter Note * Telephone Encounter - Morenita Manuel RN - 03/24/2024 9:26 AM EST Patient call. EGD/ Colonoscopy with Dr Vazquez 04/05/24. Has questions regarding his prep. Would like a call. Thanks [phone] (home) [phone] (cell) [facility]02-14-2025 Telephone encounter Note* Telephone Encounter - Brandy [...] NAME: Analilia Melendrez DATE: March 24, 2024 [facility] Work Phone: 1(458) 695-655502-14-2025 Miscellaneous Notes* Telephone Encounter - Brandy Motta [...] DATE: March 24, 2024 documented in this encounterSelect [facility] [place]02-04-2025 Telephone encounter Note * Telephone Encounter - Emmy Dillon MA - 03/14/2024 3:51 PM EST Spoke with patient about prep instructions. He had to cancel his appointment at [facility] and they will call him tomorrow with a reschedule at [facility]. [facility]02-04-2025 Miscellaneous Notes* Telephone Encounter - Emmy Dillon MA - 03/14/2024 3:51 PM EST Spoke with patient about prep instructions. He had to cancel his appointment at [facility] and they will call him tomorrow with a reschedule at [facility]. * Telephone Encounter - Emmy Dillon MA [...] advise. Suzi Haynes MA documented in this encounterSelect Medical [facility] [place]02-04-2025 Telephone encounter Note * Telephone Encounter - Emmy Dillon MA - 03/14/2024 2:39 PM EST Called home phone number on file and another gentleman answered the phone and said Analilia was not at home. Will again before leaving today. [facility]02-04-2025 Telephone encounter Note* Telephone Encounter - Suzi Haynes MA - 03/14/2024 11:27 AM EST Patient left another message requesting call back regarding prep. Suzi Haynes MA [facility]02-03-2025 Telephone encounter Note* Telephone Encounter - Suzi Haynes MA - 03/13/2024 10:32 AM EST Patient left message stating he scheduled for some procedures on 03/16/24 but does not know when to start the prep. Please advise. Suzi Haynes MA [facility]01-29-2025 Telephone encounter Note* Telephone Encounter - Andrew Ponce MA - 03/08/2024 11:21 AM EST Lm on pt. Vm with all information Andrew Ponce MA [facility]01-29-2025 Miscellaneous Notes* Telephone Encounter - Andrew Ponce [...] advise. Suzi Haynes MA documented in this encounterSelect Medical [facility] [place]01-29-2025 Telephone encounter Note * Telephone Encounter - Ramy Delgadillo DO - 03/08/2024 11:17 AM EST Pt is due for blood work - order attached Ramy Delgadillo DO [facility]01-29-2025 Telephone encounter Note* Telephone Encounter - Suzi [...] Please review and advise. Suzi Haynes MA [facility] [place]01-13-2025 Telephone encounter Note* Telephone Encounter - Giulia Rogel MA - 02/21/2024 4:34 PM EST Patient called and left a message stating that his appointment was canceled and that they can't do anything for him. He states his bowels are still bothering him Giulia Rogel MA [facility]01-13-2025 Miscellaneous Notes* Telephone Encounter - Giulia Rogel MA - 02/21/2024 4:34 PM EST Patient called and left a message stating that his appointment was canceled and that they can't do anything for him. He states his bowels are still bothering him Giulia Rogel MA documented in this encounterSelect [facility] [place]01-13-2025 Telephone encounter Note * Telephone Encounter - [...] Please review and advise. Suzi Haynes MA [facility]01-13-2025 Miscellaneous Notes* Telephone Encounter - Suzi Haynes [...] advise. Suzi Haynes MA documented in this encounterSelect [facility] [place]01-13-2025 Telephone encounter Note * Telephone Encounter - [...] Please review and advise. Suzi Haynes MA [facility]01-13-2025 Miscellaneous Notes* Telephone Encounter - Suzi Haynes [...] advise. Suzi Haynes MA documented in this encounterSelect [facility] [place]01-08-2025 Telephone encounter Note * Telephone Encounter - Suzi Haynes MA - 02/16/2024 7:19 AM EST ----- Message from Andrew Horowitz MA sent at 08/16/2023 2:21 PM EDT ----- Remind pt. Time to recheck A1C. Andrew Ponce MA [facility]01-08-2025 Miscellaneous Notes* Telephone Encounter - Suzi Haynes MA - 02/16/2024 7:19 AM EST ----- Message from Andrew Horowitz MA sent at 08/16/2023 2:21 PM EDT ----- Remind pt. Time to recheck A1C. Andrew Ponce MA documented in this encounterSelect [facility] [place]12-31-2024 Telephone encounter Note * Telephone Encounter - Andrew Ponce MA - 02/08/2024 11:38 AM EST Patient requesting refills: Last office visit 12/27/2023. Last refill 08/10/2023 . Requested Prescriptions Pending Prescriptions Disp Refills FARXIGA 10 mg tablet Sig: Take 1 tablet by mouth daily with breakfast. Please review and advise. Andrew Ponce MA [facility]12-31-2024 Miscellaneous Notes* Telephone Encounter - Andrew Ponce MA - 02/08/2024 11:38 AM EST Patient requesting refills: Last office visit 12/27/2023. Last refill 08/10/2023 . Requested Prescriptions Pending Prescriptions Disp Refills FARXIGA 10 mg tablet Sig: Take 1 tablet by mouth daily with breakfast. Please review and advise. Andrew Ponce MA documented in this encounterSelect [facility] [place]12-12-2024 Telephone encounter Note * Telephone Encounter - [...] Please review and advise. Andrew Ponce MA [facility]12-12-2024 Miscellaneous Notes* Telephone Encounter - Andrew Ponce [...] advise. Andrew Ponce MA documented in this encounterSelect [facility] [place]12-11-2024 Telephone encounter Note * Telephone Encounter - Cristela Batres - 01/19/2024 12:04 PM EST Done [facility]12-11-2024 Miscellaneous Notes* Telephone Encounter - Cristela Batres [...] todays apointment Radha Anand documented in this encounterSelect Medical [facility]ty [facility] [place]12-11-2024 Telephone encounter Note * Telephone Encounter - Emani Torres - 01/19/2024 10:27 AM EST Spoke with patient and rescheduled as directed. PSS - please print and mail an updated schedule to the patient. Emani Torres [facility]12-09-2024 Telephone encounter Note* Telephone Encounter - Chanel Foreman LPN - 01/17/2024 12:08 PM EST Has GI apt in [place]. Will need OV with Vandana moved per her note below. Chanel Foreman LPN [facility]12-09-2024 Telephone encounter Note* Telephone Encounter - Vandana Edwards - 01/17/2024 11:30 AM EST Pt needs GI workup, EDG and scope. Repeat CBC ordered. Unfortunately, I do not have any new information to further eval his anemia from our last OV. He does not need OV with us until after he meets with GI. [facility]12-09-2024 Telephone encounter Note* Telephone Encounter - Chanel Foreman LPN - 01/17/2024 9:32 AM EST What labs would you like. Chanel Foreman LPN [facility]12-09-2024 Telephone encounter Note* Telephone Encounter - Cristela Batres - 01/17/2024 9:[address] LABS PATIENT COMING IN ON 01/20 [facility]12-06-2024 Telephone encounter Note* Telephone Encounter - Radha Anand - 01/14/2024 1:34 PM EST Lvm for patient to return the call. Patient missed todays apointment Radha Anand [facility]11-22-2024 Telephone encounter Note* Telephone Encounter - Sabra Desouza APRN.CRNA - 12/31/2023 4:43 PM EST Please cancel endo procedures at [facility] 01/07/24. Pt needs to be scheduled in the hospital setting dueto medical history (Cirrhosis). I called and spoke with him and gave him the scheduling phone number so he can reschedule himself. [facility] Work Phone: [phone]) 207-431011-22-2024 Miscellaneous Notes* Telephone Encounter - Sabra Desouza APRN.CRNA - 12/31/2023 4:43 PM EST Please cancel endo procedures at [facility] 01/07/24. Pt needs to be scheduled in the hospital setting dueto medical history (Cirrhosis). I called and spoke with him and gave him the scheduling phone number so he can reschedule himself. documented in this encounterSelect [facility] [place]11-18-2024 Instructions* Patient Instructions* Marianna Wagner APRN.CNP - 12/27/2023 2:37 PM EST Pneumococcal vaccine Shingrix Tdap RSV documented in this encounterSelect Medical [facility]ty [facility] [place]11-18-2024 NoteHNO ID: [id number] Author: MARIANNA WAGNER APRN.CNP Service: ? Author [...] Got it through a diabetic clinic in [facility] has been refilling it for him [...] lbs. Was 165 lbs prior to the chcf in June. Has frequent nausea and vomiting. Has a low appetite Unsure of what his last A1C was BS are either really high or low. Has a freestyle mango. Taking Lantus insulin. No meal time insulin. Taking Farxiga and Metformin (has been on that for awhile). 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 States he either had a seizure or stroke and was placed in the hospital and then went to a chcf for 5 weeks. 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 Started smoking [...] nonobstructive Chronic kidney disease, stage III (moderate) ([facility]) Clostridioides difficile infection Coronary artery disease Depression Diabetes mellitus, type II (HCC) Insulin dependent History of alcohol abuse Hx of ascending aorta repair Hyperlipidemia Hypertension Non-ST elevation MA (NSTEMI) (HCC) 06/24 Pacemaker Paroxysmal atrial fibrillation (HCC) RBBB (right bundle branch block) S/P aortic valve replacement [facility] mechanical Syncope Tachy-fernando syndrome (HCC) Tobacco abuse chronic Tobacco user Type 2 diabetes mellitus (HCC) PAST DARELL (more content not included)...[facility] History of Present illness Narrative* Marianna Wagner, VIRIDIANA.ACCOUNT SUPPORT ASSOCIATE - 12/27/2023 2:19 PM EST CHIEF COMPLAINT: [...] with meals and snacks. He remains on Vlofcrpu23 mg BID. He is still taking his iron replacement. Using Freestyle Mango 3 (has it on his right forearm) Got it through a diabetic clinic in [facility] has been refilling it for him [...] lbs. Was 165 lbs prior to the chcf in June. Has frequent nausea and vomiting. Has a low appetite Unsure of what his last A1C was BS are either really high or low. Has a freestyle mango. Taking Lantus insulin. No meal time insulin. Taking Farxiga and Metformin (has been on that for awhile). 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 States he either had a seizure or stroke and was placed in the hospital and then went to a chcf for 5 weeks. 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 Started smoking [...] nonobstructive Chronic kidney disease, stage III (moderate) ([facility]) Clostridioides difficile infection Coronary artery disease Depression Diabetes mellitus, type II (HCC) Insulin dependent History of alcohol abuse Hx of ascending aorta repair Hyperlipidemia Hypertension Non-ST elevation MA (NSTEMI) (HCC) 06/24 Pacemaker Paroxysmal atrial fibrillation [...] Current Outpatient Medications Medication Sig Dispense Refill faxgcl-[id number]-qmbskvg (CREON 36) 36,000-114,000- 180,000 unit delayed release capsule Take 2 pills by mouth with first bite of meal and take 1 pill with snacks. Max 10 per day. 300 capsule 3 Insulin [place], Disposable, (BD ULTRA-FINE NORBERTO PEN NEEDLE) 32 [...] 2 Blood-Glucose Meter,Continuous (FREESTYLE MANGO 3 READER) [facility] Use to check blood sugar at least [...] sooner should any other issues arise. - [employer] MANGO 3 SENSOR DEVICE 3. Stage 3 [...] patient. Marianna Wagner APRN.CNP documented in this encounterSelect [facility] [place]11-15-2024 Instructions* Patient Instructions* Susana Ramirez APRN.CNP - [...] am on dialysis? A: Please consult your superintendent geophysical laboratory prior to scheduling to get instructions pertinent to you. In general, dialysis patients take the PharmAssistantly bowel prep and have the procedure same [...] am on dialysis? A: Please consult your superintendent geophysical laboratory prior to scheduling to get instructions pertinent [...] rest of the day. documented in this encounterSelect [facility]ty [facility] [place]11-15-2024 [facility]Par[facility] History of Present illness Narrative* Susana [...] for internal providers or letter via the [employer] for external providers. HPI: Analilia [...] Abs Lymph 1.00 - 4.00 k/uL 1.82 Turner% % 11.0 Abs Turner <0.87 k/uL 0.51 Eosin% % 0.0 Abs [...] ascending aorta repair Hyperlipidemia Hypertension Non-ST elevation MA (NSTEMI) (HCC) 06/24 Pacemaker Paroxysmal atrial fibrillation [...] Allergies: ALLERGIES No Known Allergies Medications: Insulin [place], Disposable, (BD ULTRA-FINE NORBERTO PEN NEEDLE) 32 [...] daily. Blood-Glucose Meter,Continuous (FREESTYLE MANGO 3 READER) [facility] Use to check blood sugar at least [...] meals and 1 pill with snacks - rbisio-xhjddxuc-zzfobcg (CREON 36) 36,000-114,000- 180,000 unit delayed release [...] Follow up in office after rodrick Ramirez APRN.ACCOUNT SUPPORT ASSOCIATE December 24, 2023 11:28 AM documented in this encounterSelect [facility] [place]11-07-2024 Telephone encounter Note * Telephone Encounter - Suzi Haynes MA - 12/16/2023 5:04 PM EST Patient informed of results and to keep GI appointment on 12/24/23 at 11:20, reiterated the appointment and time to patient multiple times. Suzi Haynes MA [facility]11-07-2024 Telephone encounter Note* Telephone Encounter - Suzi Haynes MA - 12/16/2023 5:04 PM EST ----- Message from Marianna Wagner APRN.ACCOUNT SUPPORT ASSOCIATE sent at 12/15/2023 6:32 PM EST ----- CT pancreas showed chronic calcified pancreatitis with multiple stones and dilation of the duct. There was no mass. He needs to make the appointment with GI on 12/23 [facility]11-07-2024 Miscellaneous Notes* Telephone Encounter - Suzi Haynes MA - 12/16/2023 5:04 PM EST Patient informed of results and to keep GI appointment on 12/24/23 at 11:20, reiterated the appointment and time to patient multiple times. Suzi Haynes MA * Telephone Encounter - Suzi Haynes MA - 12/16/2023 5:04 PM EST ----- Message from Marianna Wagner APRN.ACCOUNT SUPPORT ASSOCIATE sent at 12/15/2023 6:32 PM EST ----- CT pancreas showed chronic calcified pancreatitis with multiple stones and dilation of the duct. There was no mass. He needs to make the appointment with GI on 12/23 documented in this encounterSelect Medical [facility] [place]10-30-2024 Miscellaneous Notes* [facility] - Anny [facility] [...] PATIENT PRESENTS WITH AN IMPLANTABLE OR ATTACHED MANAGER PLANNING: No RADIOLOGY DEPARTMENT: CT; Exam(s) Completed: Pancreas PERIPHERAL IV DATA: Site assessment: Clean,Dry and Intact, Site disposition Discontinued SIGNED BY: KIRA Thomas December 08, 2023 10:57 AM documented in this encounterSelect Medical [facility] [place]10-30-2024 Nurse Note* Sigrid Mata RN - 12/08/2023 [...] DATE: December 08, 2023 TIME: 10:42 AM [facility]10-30-2024 Nurse Note* Sigrid Mata RN - 12/08/2023 [...] 2023 TIME: 10:42 AM documented in this encounterSelect Medical Specialty [facility] [place]10-30-2024 Progress note* [facility] - Anny Durham [...] PATIENT PRESENTS WITH AN IMPLANTABLE OR ATTACHED MANAGER PLANNING: No RADIOLOGY DEPARTMENT: CT; Exam(s) Completed: Pancreas PERIPHERAL IV DATA: Site assessment: Clean,Dry and Intact, Site disposition Discontinued SIGNED BY: KIRA Thomas December 08, 2023 10:57 AM [facility]10-29-2024 Telephone encounter Note* Telephone Encounter - Marianna Wagner APRN.CNP - 12/07/2023 1:00 PM EDT New order for CT pancreas was placed since last one was discontinued. [facility]10-29-2024 Miscellaneous Notes* Telephone Encounter - Marianna Wagner APRN.CNP - 12/07/2023 1:00 PM EDT New order for CT pancreas was placed since last one was discontinued. documented in this encounterSelect [facility] [place]10-21-2024 Telephone encounter Note * Telephone Encounter - Marianna Wagner APRN.CNP - 11/29/2023 12:14 PM EDT Completed peer to peer for CT pancreas with IV contrast and obtained approval. # [id number] until 11/30/2023-12/31/2023 He is scheduled tomorrow for the CT. Spoke with Dr. Murillo with [facility] for reference. [facility]10-21-2024 Miscellaneous Notes* Telephone Encounter - Marianna Wagner APRN.CNP - 11/29/2023 12:14 PM EDT Completed peer to peer for CT pancreas with IV contrast and obtained approval. # [id number] until 11/30/2023-12/31/2023 He is scheduled tomorrow for the CT. Spoke with Dr. Murillo with [facility] for reference. * Telephone Encounter - Twyla Espana - 11/25/2023 12:53 PM EDT Denial: CPT 22903-LB PANCREAS W IVCON Denial Type: Payer Clinical [...] Yes Peer to Peer Deadline: 11/30/2023 Insurance Case#[id number] Peer to Peer opt 2 (enter tracking#) / opt 1 Denial sent to providers email documented in this encounterSelect [facility] [place]10-18-2024 Telephone encounter Note * Telephone Encounter - Andrew Ponce MA - 11/26/2023 10:30 AM EDT Patient requesting refills: Last office visit 10/14/2023. Last refill . Requested Prescriptions Pending Prescriptions Disp Refills Insulin [place], Disposable, (BD ULTRA-FINE NORBERTO PEN NEEDLE) 32 gauge x 5/32 Sig: three times a day. Please review and advise. Andrew Ponce MA [facility]10-18-2024 Miscellaneous Notes* Telephone Encounter - Andrew Ponce MA - 11/26/2023 10:30 AM EDT Patient requesting refills: Last office visit 10/14/2023. Last refill . Requested Prescriptions Pending Prescriptions Disp Refills Insulin [place], Disposable, (BD ULTRA-FINE NORBERTO PEN NEEDLE) 32 gauge x 5/32 Sig: three times a day. Please review and advise. Andrew Ponce MA documented in this encounterSelect Medical [facility]ty [facility] [place]10-17-2024 Telephone encounter Note * Telephone Encounter - Twyla Espana - 11/25/2023 12:53 PM EDT Denial: CPT 26881-GA PANCREAS W IVCON Denial Type: Payer Clinical [...] Yes Peer to Peer Deadline: 11/30/2023 Insurance Case#[id number] Peer to Peer opt 2 (enter tracking#) / opt 1 Denial sent to providers email [facility]10-08-2024 Telephone encounter Note* Telephone Encounter - Giulia Rogel MA - 11/16/2023 5:16 PM EDT Patient is informed Giulia Rogel MA [facility]10-08-2024 Miscellaneous Notes* Telephone Encounter - Giulia Rogel [...] Patient left message stating he saw the metal off bearer yesterday and they are very worried about his stomach and wants him to be seen by GI sooner than 12/24/23. Patient states he has called and they cannot see him any sooner and wanted to know if there was anything Marianna could do. Please advise. Suzi Haynes MA documented in this encounterSelect Medical [facility] [place]10-08-2024 Telephone encounter Note * Telephone Encounter - Marianna Wagner APRN.CNP - 11/16/2023 4:49 PM EDT Please let the patient know that I contacted GI and there is nothing available until his appointment in December. He needs to make this appointment. [facility]10-08-2024 Telephone encounter Note* Telephone Encounter - Carolina Benito - 11/16/2023 4:20 PM EDT Unfortunately, we do not have any openings sooner as of right now. I would suggest if he is needingto be seen urgently to contact central scheduling at if he is willing to go to any location for care. We did add him to the wait list. Carolina Benito [facility]10-08-2024 Telephone encounter Note* Telephone Encounter - Marianna Wagner APRN.CNP - 11/16/2023 3:03 PM EDT I have already tried to get him a sooner appointment but then he missed that appointment. I will send the request to their office but there may not be anything available. [facility]10-08-2024 Telephone encounter Note* Telephone Encounter - Suzi Haynes MA - 11/16/2023 2:32 PM EDT Patient left message stating he saw the metal off bearer yesterday and they are very worried about his stomach and wants him to be seen by GI sooner than 12/24/23. Patient states he has called and they cannot see him any sooner and wanted to know if there was anything Marianna could do. Please advise. Suzi Hyanes MA [facility]10-07-2024 History of Present illness Narrative* Vandana Edwards [...] uses NSAIDs. Occasional reflux. He [facility] in [facility] in june for rehab [...] ascending aorta repair Hyperlipidemia Hypertension Non-ST elevation MA (NSTEMI) ([facility]) 06/24 Pacemaker Paroxysmal atrial fibrillation ([facility]) RBBB (right bundle branch block) S/P aortic valve replacement [facility] Wero mechanical Syncope Tachy-fernando syndrome ([facility]) Tobacco abuse chronic Tobacco user Type 2 diabetes mellitus ([facility]) PAST SURGICAL HISTORY Procedure Laterality Date ABD [...] 2 Blood-Glucose Meter,Continuous (FREESTYLE MANGO 3 READER) [facility] Use to check blood sugar at least [...] 1 tablet by mouth once daily. Insulin [place], Disposable, (NORBERTO PEN NEEDLE) 32 gauge x [...] 5' 10 (1.78m) Wt 132 lb (59.9kg) SkW512% BMI 18.94 kg/(m^2). General: Age-appropriate well developed. [...] with labs in 8 weeks. Vandana Edwards APRN.ACCOUNT SUPPORT ASSOCIATE I spent a total of 45 minutes on the date of the service which included preparing to see the patient, eigs-ly-pomf patient care, completing clinical documentation, counseling and [...] evaluation of this patient. documented in this encounter[facility] Telephone encounter Note * Telephone Encounter - Suzi Haynes MA - 11/09/2023 1:54 PM EDT Patient informed of results and additional imaging ordered. Suzi Haynes MA [facility]10-01-2024 Miscellaneous Notes* Telephone Encounter - Suzi Haynes MA - 11/09/2023 1:54 PM EDT Patient informed of results and additional imaging ordered. Suzi Haynes MA * Telephone Encounter - Marianna Wagner APRN.CNP - 11/07/2023 7:[address] abd showed dilatation of the pancreatic duct possibly due to chronic pancreatitis.I placed an order for a CT for his pancreas. documented in this encounter[facility] Telephone encounter Note * Telephone Encounter - [...] Please review and advise. Suzi Haynes MA [facility]09-30-2024 Miscellaneous Notes* Telephone Encounter - Suzi Haynes [...] advise. Suzi Haynes MA documented in this encounterSelect [facility]-2024 Telephone encounter Note * Telephone Encounter - Marianna Wagner APRN.CNP - 11/07/2023 7:[address] abd showed dilatation of the pancreatic duct possibly due to chronic pancreatitis.I placed an order for a CT for his pancreas. [facility]09-27-2024 NoteHNO ID: [id number] Author: YESSICA UMANA LPN Service: ? Author Type: LICENSED NURSE Type: Progress Notes Filed: 11/05/2023 13:46 Note Text: ED Follow Up: Patient discharged from [facility] ED on 10/30/2023. 1. How are [...] you able to contact the office or dish person provider prior to your ED visit? Left message for pt to call office. 5. Is there anything else I can do for you today? Left message for pt to call office.[facility]09[facility] History of Present illness Narrative* Yessica Umana LPN - 11/05/2023 1:44 PM EDT ED Follow Up: Patient discharged from [facility] ED on 10/30/2023. 1. How are [...] you able to contact the office or dish person provider prior to your ED visit? Left message forpt to call office. 5. Is there anything else I can do for you today? Left message for pt to call office. documented in this encounterSelect [facility]24 NotePatient Outreach (AGINTMLW) ANALILIA MELENDREZ ([id number]) 1960 Date Time Provider Department 11/05/23 YESSICA UMANA AGINTMLW During your visit today, we recorded the following information about you: Yessica Umana LPN 11/05/2023 1:46 PM Signed ED Follow Up: Patient discharged from [facility] ED on 10/30/2023. 1. How are [...] you able to contact the office or dish person provider prior to your ED visit? Left message for pt to call office. 5. Is there anything else I can do for you today? Left message for pt to call office. Allergies As of Date: 11/05/2023 (No Known Allergies) Date Reviewed: 10/14/2023 Reviewed by: Marianna Wagner APRN.ACCOUNT SUPPORT ASSOCIATE - Fully Assessed Prescriptions as of 11/05/2023 - metFORMIN (GLUCOPHAGE) 500 mg tablet Take 1 tablet by mouth daily with breakfast. - Cholecalciferol, Vitamin D3, (VITAMIN D-3) 50 mcg (2,000 unit) cap Take 1 capsule by mouth once daily. - ferrous sulfate 325 mg (65 mg iron) tablet Take 1 tablet by mouth once daily. - Blood-Glucose Meter,Continuous (FREESTYLE MANGO 3 READER) [facility] Use to check blood sugar at least [...] tablet by mouth once daily. - Insulin [place], Disposable, (NORBERTO PEN NEEDLE) 32 gauge x [...] (HCC) [I71.9] 08/09/2023 Atherosclerotic heart disease of [place] coron[place]*01/03/2017 Chronic pancreatitis (HCC) [K86.1] 08/09/2023 Calcium [...] pacemaker [Z95.0] 08/09/2023 Histor (more content not included)...[facility]09-21[facility]2024 Hospital Discharge instructions Patient Education 10/30/2023 18:21:40 [...] and smoking to help manage this disease. 5972-6463 [employer]. [address] [place], [place] [id number]. All rights reserved. This information is not [...] if directed by your healthcare provider. [employer]. [address] [place] [address]. All rights reserved. This information is not intended as a substitute for professional medical care. Always follow yourhealthcare professional's instructions. Follow Up Care 10/30/2023 15:12:07 With:VANESSA GROSS MD Address: [address] [facility], [place] [address] [phone] When:3-5 days With:Go to emergency room if symptoms worsen Address:Unknown When:2-4 days With:MARIANNA WAGNERC Address: [address] [place] [phone]- [phone] When:2-4 days [facility] 09-21-2024 Note Discharge Instructions Thank you for allowing [facility] to assist you with your healthcare needs. [...] [address] [facility], [place] [address]- [phone] Follow Up with Go to emergency room if symptoms worsen When:Within 2-4 days Follow Up with MARIANNA WAGNER When:Within 2-4 days Where:[address] [place] [address]- [phone] Allergies NKA Medications Please ask your primary [...] and smoking to help manage this disease. 6511-1889 [employer]. [address] [place] [address]. All rights reserved. This information is not [...] medicine if directed by your healthcare provider. 2075-8748 [employer]. [address] [place] [address]. All rights reserved. This information is not intended as a substitute for professional medical care. Always follow yourhealthcare professional's instructions. Additional Information VACCINATE! IT SAVES LIVES! Members of the community who have not yet received the COVID-19 vaccine and would like to receive it can visit one of [facility] vaccine clinics. There are many vaccine clinic locations within the [facility]. For locations and available times, please visit www.[email or web address].[email or web address]/. It is important to note that some COVID mobile vaccine clinics are held outdoors and may be canceled in rainy or stormy conditions. To learn more about pediatric vaccinations (ages 5-11), we invite you to visit the [facility] webpage. [email or web address]/pages/[email or web address]-Ifhfc-[email or web address] stions.htmlTo learn more about the COVID-19 vaccine, we invite you to visit the CDC website for a list of frequently asked questions. https://www.cdc.gov/coronavirus/2019-ncov/vaccines/faq.html [facility] Patient Portal Access Instructions: Stay connected with your healthcare team and access your personal medical information anytime with the [employer] Patient Portal. If you would like a full copy of your medical records please contact the [facility] Medical Records Department Wednesday through Wednesday between 8a.m. and 4:30p.m. Please follow the directions below to access the portal: 1.Access the email account you provided upon registration to the [facility].2.Look for an invitation email from [facility].3.Open the email and access the invitation link: Accept Invitation to [employer]4.Fill in the required smith to create your account. Sign into [email or web address].[email or web address] with your username and password that you [...] you will allow to register on the [facility] Patient Portal for access to your information. You can also access the [employer] Patient Portal on the [employer] logan. Simply click on Health Records under [...] Call your local pharmacy or go to http://bit.ly/5H9Vw7o to find one close to you.3.Make use of household items: Use cat litter or old coffee grounds to dispose medications if other options arenot available. Mix your drugs with these household products, seal them in an airtight container andthrow it into the garbage. Call [facility]: [phone] to be sure your drugs can be [...] aware that I should contact my doctor. Patient/[facility] Director Signature: Date/Time: Relationship to Patient: Witness Name/Signature: Date/Time: [facility]09-21-2024 Note ORIGINAL EXAMINATION: ONE XRAY VIEW OF [...] Sign Date: 10/30/2023 5:23:53 PM Ordering Provider: [facility]09-21-2024 Note ORIGINAL EXAMINATION: CT OF THE [...] Date: 10/30/2023 5:39:58 PM Ordering Provider: ANN-MARIE [facility]09-21-2024 Note ORIGINAL EXAMINATION: CT OF THE [...] Date: 10/30/2023 5:19:12 PM Ordering Provider: ANN-MARIE [facility]09-21-2024 Note Sinus rhythm Probable left atrial enlargement Right bundle branch block Electronic Signature: ANN-MARIE DILLON DO 10/30/2023 15:35:[address] [place] [address] 09-11-2024 Telephone encounter Note* Telephone Encounter - Emani Torres - 10/20/2023 8:39 AM EDT Spoke with patient and scheduled. Emani Melissa [facility]09-11-2024 Miscellaneous Notes* Telephone Encounter - Emani Torres [...] Insurance: [employer] Referred by: Marianna Wagner APRN.ACCOUNT SUPPORT ASSOCIATE Please review and advise documented in this encounterSelect [facility] Telephone encounter Note * Telephone Encounter - Sabra Rios LPN - 10/19/2023 12:10 PM EDT First available with Vandana Rios LPN [facility]09-10-2024 Telephone encounter Note* Telephone Encounter - Gracie Tinsley - 10/19/2023 11:25 AM EDT Patient is being referred to Dr Sebastian. This patient is not appropriate to offer our virtual anemia clinic. DX: Anemia Insurance: [employer] Referred by: Marianna Wagner APRN.CNP Please review and advise [facility]09-09-2024 Telephone encounter Note* Telephone Encounter - Suzi Haynes MA - 10/18/2023 2:45 PM EDT Patient informed of all results, recommendations, appointment information and scripts sent in. Patient states he is going to have to move one of his appointments either the GI or the CT. Per conversation with Marianna Wagner ACCOUNT SUPPORT ASSOCIATE advised patient not to change GI appointment, left message for [facility] radiology to move patient's CT appointment. Suzi Haynes MA [facility]09-09-2024 Miscellaneous Notes* Telephone Encounter - Suzi Haynes MA - 10/18/2023 2:45 PM EDT Patient informed of all results, recommendations, appointment information and scripts sent in. Patient states he is going to have to move one of his appointments either the GI or the CT. Per conversation with Marianna Wagner CNP advised patient not to change GI appointment, left message for [facility] radiology to move patient's CT appointment. [...] to hematology. Referral to Dr. Sebastian in [place]. documented in this encounter[facility] Telephone encounter Note * Telephone Encounter - [...] to hematology. Referral to Dr. Sebastian in [place]. [facility]09-05-2024 Instructions* Patient Instructions* Marianna Wagner APRN.CNP - 10/14/2023 11:17 AM EDT Schedule with GI Get labs done Start iron replacement- take with vitamin C (OJ) Check if you are taking vitamin D Make sure you are taking Protonix/pantoprazole [facility] [address] [place] [address] Appointment: [phone] Desk: [phone] What protein supplements can I buy at the grocery store? * Ensure Plus (13 grams of protein per bpttle) * Boost High Protein (15 grams of protein per bottle) * [place] Instant Breakfast packet with 8oz gkass of milk (13 grams of protein) Beneprotein (6 grams of protein 1 pkg.) can be mixed with 2-4 oz. of any liquid Dix s Shakes (10 grams of protein per bottle) Milkshake Chugs (14 grams of protein per bottle) [facility] [employer] Perfectly Protein (10 grams of protein per 8oz) [employer]mt Vanilla Protein Monster (33 grams of protein [...] friendly products please ask your dietitian. FYI: Turkmen yogurt has more protein than regular yogurt [employer] [employer] is in organic section of your grocery stores [place] Instant Breakfast is in the breakfast cereal aisle Milkshake Chugs are in the milk aisle Odwalla Protein Monster is in the organic section of the grocery store Some suggestions to make protein supplements easier to drink: Drink protein supplements cold Drink in a cup with a lid, like a travel mug (no straw) to decrease the smell documented in this encounterSelect [facility]2024 NoteHNO ID: [id number] Author: MARIANNA WAGNER APRN.STEPHANIE Service: ? Author [...] lbs. Was 165 lbs prior to the [facility] in June. Has frequent nausea and vomiting. Has a low appetite Unsure of what his last A1C was BS are either really high or low. Has a freestyle mango. Taking Lantus insulin. No meal time insulin. Taking Farxiga and Metformin (has been on that for awhile). 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 States he either had a seizure or stroke and was placed in the hospital and then went to a [facility] for 5 weeks. 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 Started smoking [...] No date: Anxiety No date: Aortic aneurysm ([facility]) Comment: S/P Repair No date: Aortic aneurysm (HCC) No date: Aortic valve disorder Comment: S/P Replacement No date: CAD (coronary artery disease) Comment: nonobstructive No date: Coronary artery disease No date: Depression No date: Diabetes mellitus, type II ([facility]) Comment: Insulin dependent No date: Hx of ascending aorta repair No date: Hyperlipidemia No date: Hypertension No date: Non-ST elevation MA (NSTEMI) ([facility]) Comment: 06/24 No date: NSTEMI (non-ST elevated myocardial infarction) ([facility]) No date: Pacemaker No date: Pacemaker No date: Paroxysmal atrial fibrillation ([facility]) No date: RBBB (right bundle branch block) No date: S/P aortic valve replacement Comment: [facility]. 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 Was 165 lbs prior to the [facility] in June. Has frequent nausea and vomiting. Has a low appetite Unsure of what his last A1C was BS are either really high or low. Has a freestyle mango. Taking Lantus insulin. No meal time insulin. Taking Farxiga and Metformin (has been on that for awhile). 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 States he either had a seizure or stroke and was placed in the hospital and then went to a [facility] for 5 weeks. 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 Started smoking [...] No date: Anxiety No date: Aortic aneurysm ([facility]) Comment: S/P Repair No date: Aortic aneurysm ([facility]) No date: Aortic valve disorder Comment: S/P Replacement No date: CAD (coronary artery disease) Comment: nonobstructive No date: Coronary artery disease No date: Depression No date: Diabetes mellitus, type II ([facility]) Comment: Insulin dependent No date: Hx of ascending aorta repair No date: Hyperlipidemia No date: Hypertension No date: Non-ST elevation MA (NSTEMI) ([facility]) Comment: 06/24 No date: NSTEMI (non-ST elevated myocardial infarction) ([facility]) No date: Pacemaker No date: Pacemaker No date: Paroxysmal atrial fibrillation ([facility]) No date: RBBB (right bundle branch block) No date: S/P aortic valve replacement Comment: [facility]. 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 Insulin [place], Disposable, (NORBERTO PEN NEEDLE) 32 gauge x [...] Monocytes % 09/25/2023 10.1 % Final Abs Turner 09/25/2023 0.48 <0.87 k/uL Final Eosinophils % [...] 99 74 - 99 mg/dL Final The [place] Diabetes Association (ADA) provides guidance for cutoff [...] Standards of Medical Care in Diabetes 2016, [place] Diabetes Association. Diabetes Care. 2016.39(Suppl 1). BUN [...] patient. Marianna Wagner APRN.CNP documented in this encounterSelect [facility] Telephone encounter Note * Telephone Encounter - Giulia Rogel MA - 10/07/2023 5:11 PM EDT Patient is informed and and reminder placed. He states he needs to drop off the specimen and he will call IWONA Rogel MA [facility]08-29-2024 Miscellaneous Notes* Telephone Encounter - Giulia Rogel [...] appointment with GI yet? documented in this encounterSelect [facility]2024 Telephone encounter Note * Telephone Encounter - Marianna Wagner APRN.CNP - 10/07/2023 11:29 AM EDT Hgb has decreased showing anemia. I want to recheck her CMP and CBC again in 2 weeks. Has he completed the stool studies yet? Or make an appointment with GI yet? 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 He is going to try and go to [facility] to complete labs and stool study Giulia [...] too. I also placed some lab orders. [facility] [address] [place] [address] Appointment: [phone] Desk: [phone] * Telephone Encounter - Suzi Haynes MA [...] the restroom. States he was in a [facility] 6 weeks ago because of a seizure and the doctor in the [facility] had him on Tramadol for his stomach [...] advise. Suzi Haynes MA documented in this encounterSelect [facility]-2024 Telephone encounter Note * Telephone Encounter - [...] too. I also placed some lab orders. [facility] [address] [place] [address] Appointment: [phone] Desk: [phone] [facility]08-16-2024 Telephone encounter Note* Telephone Encounter - Suzi [...] the restroom. States he was in a [facility] 6 weeks ago because of a seizure and the doctor in the [facility] had him on Tramadol for his stomach [...] in anyway. Please advise. Suzi Haynes MA [facility]08-07-2024 NoteHNO ID: [id number] Author: RADHA ETIENNE RN Service: ? Author Type: Registered Nurse Type: Progress Notes Filed: 09/15/2023 14:15 Note Text: PRIMARY CARE COORDINATION QUICK NOTE Patient identified by name and date . PCC called to discuss Care Coordination services. Pt is not interested. Radha Etienne [facility]08-07-2024 History of Present illness Narrative* Radha Etienne RN - 09/15/2023 2:10 PM EDT PRIMARY CARE COORDINATION QUICK NOTE Patient identified by name and date . PCC called to discuss Care Coordination services. Pt is not interested. Radha Etienne RN documented in this encounterSelect Medical [facility]ty [facility]-2024 NotePatient Outreach (AGACM) ANALILIA MELENDREZ ([id number]) 1960 M Date Time Provider Department 09/15/23 RADHA ETIENNE [facility] During your visit today, we recorded the following information about you: Radha Etienne RN 09/15/2023 2:15 PM Signed PRIMARY CARE COORDINATION QUICK NOTE Patient identified by name and date . PCC called to discuss Care Coordination services. Pt is not interested. Radha Etienne RN Allergies As of Date: 09/15/2023 (No Known Allergies) Date Reviewed: 08/09/2023 Reviewed by: Marianna Wagnre APRN.ACCOUNT SUPPORT ASSOCIATE - Fully Assessed Reason for Visit: [facility] Chronic Care [3612] Cmt: Care Coordination Prescriptions as of 09/15/2023 - Blood-Glucose Meter,Continuous (FREESTYLE MANGO 3 READER) [facility] Use to check blood sugar at least [...] tablet by mouth once daily. 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 Yessica Umana LPN [facility]08-05-2024 Miscellaneous Notes* Telephone Encounter - Yessica Umana [...] was having blood diarrhea. [facility] Telephone encounter Note * Telephone Encounter - Marianna Wagner APRN.CNP - 09/13/2023 8:16 AM EDT Please call patient to check on him since he did not go to an ER that I can see. He had called nurse rhys stating he was having blood diarrhea. [facility]08-02-2024 Telephone encounter Note* Telephone Encounter - Eloy [...] stand, low BP, rapid pulse) Protocols used: [id number] [facility]08-02-2024 Miscellaneous Notes* Telephone Encounter - Eloy Garcia [...] stand, low BP, rapid pulse) Protocols used: [id number] documented in this [facility]24 NoteHNO ID: [id number] Author: RADHA ETIENNE RN Service: ? Author Type: Registered Nurse Type: Progress Notes Filed: 09/10/2023 10:55 Note Text: PRIMARY CARE COORDINATION QUICK NOTE Patient identified by name and date . PCC called to introduce Care Coordination services. Pt prefers a call back another day, as he is just not feeling good today. Radha Etienne, [facility]08-02-2024 History of Present illness Narrative* Radha Etienne RN - 09/10/2023 10:49 AM EDT PRIMARY CARE COORDINATION QUICK NOTE Patient identified by name and date . PCC called to introduce Care Coordination services. Pt prefers a call back another day, as he is just not feeling good today. Radha Etienne RN documented [facility] NotePatient Outreach (AGACM) ANALILIA MELENDREZ ([id number]) 1960 M Date Time Provider Department 09/10[facility] your visit today, we recorded the [...] Date Reviewed: 08/09/2023 Reviewed by: Marianna Wagner APRN.ACCOUNT SUPPORT ASSOCIATE - Fully Assessed Reason for Visit: Coremaker Bench- Other [4685] Cmt: Care Coordination Prescriptions as of 09/10/2023 - Blood-Glucose Meter,Continuous (FREESTYLE MANGO 3 READER) [facility] Use to check blood sugar at least [...] tablet by mouth once daily. 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 Author Type: Registered Nurse Type: Progress Notes Filed: 08/24/2023 13:57 Note Text: PRIMARY CARE COORDINATION QUICK NOTE Patient identified by name and date . PCC called to introduce care coordination services. Pt isn't home right now. Radha Etienne [facility]07-16-2024 History of Present illness Narrative* Radha Etienne RN - 08/24/2023 1:52 PM EDT PRIMARY CARE COORDINATION QUICK NOTE Patient identified by name and date . PCC called to introduce care coordination services. Pt isn't home right now. Radha Etienne RN documented in this encounter[facility]24 NotePatient Outreach (AGACM) ANALILIA MELENDREZ ([id number]) 1960 M Date Time Provider Department 08/24/23 RADHA ETIENNE [facility] During your visit today, we recorded the following information about you: Radha Etienne RN 08/24/2023 1:57 PM Signed PRIMARY CARE COORDINATION QUICK NOTE Patient identified by name and date . PCC called to introduce care coordination services. Pt isn't home right now. Radha Etienne RN Allergies As of Date: 08/24/2023 (No Known Allergies) Date Reviewed: 08/09/2023 Reviewed by: Marianna Wagner APRN.ACCOUNT SUPPORT ASSOCIATE - Fully Assessed Reason for Visit: Coremaker Bench- Other [8970] Cmt: Care Coordination Prescriptions as of 08/24/2023 [...] tablet by mouth once daily. 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) [Z79.4]01/03/2017 Pansystolic murmur [R01.1] 08/09/2023 Unspecified severe protein-calorie malnutrition*05/20/2023 Encounter Status:Closed by RADHA ETIENNE on 08/24/23[facility]07-12-2024 Telephone encounter Note* Telephone Encounter - Giulia Rogel MA - 08/20/2023 10:44 AM EDT Patient called he would like an order for raysa Rogel MA [facility]07-12-2024 Miscellaneous Notes* Telephone Encounter - Giulia Rogel MA - 08/20/2023 10:44 AM EDT Patient called he would like an order for raysa Rogel MA documented in this encounter[facility] Telephone encounter Note * Telephone Encounter - Andrew Ponce MA - 08/16/2023 2:21 PM EDT Pt. Notified. Reminder placed. Andrew Ponce MA [facility]07-08-2024 Telephone encounter Note* Telephone Encounter - Andrew Ponce MA - 08/16/2023 2:21 PM EDT ----- Message from Marianna Wagner APRN.ACCOUNT SUPPORT ASSOCIATE sent at 08/16/2023 2:14 PM EDT ----- A1C has improved to 6.8 which is considered controlled. Continue current medications. Recheck in 6 months. [facility]07-08-2024 Miscellaneous Notes* Telephone Encounter - Andrew Ponce MA - 08/16/2023 2:21 PM EDT Pt. Notified. Reminder placed. Andrew Ponce MA * Telephone Encounter - Andrew Ponce MA - 08/16/2023 2:21 PM EDT ----- Message from Marianna Wagner APRN.ACCOUNT SUPPORT ASSOCIATE sent at 08/16/2023 2:14 PM EDT ----- A1C has improved to 6.8 which is considered controlled. Continue current medications. Recheck in 6 months. [facility] Telephone encounter Note * Telephone Encounter - Suzi Haynes MA - 08/13/2023 9:27 AM EDT Patient informed of results, recommendations and scripts sent in. Patient states he does not use [facility] he uses [facility] in [place] and would like scripts resent. Also patient states he does not take any supplements with vitamin B12. Please advise. uSzi Haynes MA [facility]07-05-2024 Miscellaneous Notes* Telephone Encounter - Suzi Haynes [...] Lisinopril. Will forward this to home care aide since he is a complicated case. [facility] Telephone encounter Note * Telephone Encounter - [...] Lisinopril. Will forward this to home care aide since he is a complicated case. [facility]07-01-2024 Instructions* Patient Instructions* Marianna Wagner APRN.CNP - 08/09/2023 1:37 PM EDT [facility] [address] [place] [address] Appointment: [phone] Desk: [phone] documented in this encounterSelect [facility]2024 NoteHNO ID: [id number] Author: MARIANNA WAGNER APRN.CNP Service: ? Author Type: Nurse Practitioner Type: Progress Notes Filed: 08/13/2023 12:57 Note Text: [facility] Marianna Gomezdevyn LOCAL AREA NETWORK ADMINISTRATOR-ACCOUNT SUPPORT ASSOCIATE [address] [place] [address] Dept Dept. Visit Date: August 09, 2023 Mr.Steven Melendrez Date of : 1960 MRN/E #: [id number] Chief Complaint: Patient presents with: Establish Care: Previous pt. Of dr. Young at [facility]. Think he may have a seizure or stoke. Went to [facility] for 5 week. ([facility]y hart in [facility]) Diarrhea: X 2 months. BM is [...] lbs. Was 165 lbs prior to the [facility] in June. Has frequent nausea and vomiting. Has a low appetite Unsure of what his last A1C was BS are either really high or low. Has a freestyle mango. Taking Lantus insulin. No meal time insulin. Taking Farxiga and Metformin (has been on that for awhile). 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 States he either had a seizure or stroke and was placed in the hospital and then went to a [facility] for 5 weeks. 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 Started smoking [...] artery disease Depression Diabetes mellitus, type II ([facility]) Insulin dependent Hx of ascending aorta repair Hyperlipidemia Hypertension Non-ST elevation MA (NSTEMI) ([facility]) 06/24 NSTEMI (non-ST elevated myocardial infarction) ([facility]) Pacemaker Pacemaker Paroxysmal atrial fibrillation ([facility]) RBBB (right bundle branch block) S/P aortic valve replacement [facility] 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 jiménez (more content not included)...[facility]07-[facility] History of Present illness Narrative* Marianna Wagner APRN.ACCOUNT SUPPORT ASSOCIATE - 08/09/2023 1:13 PM EDT Images from the original note were not included. [facility] Marianna Wagner LOCAL AREA NETWORK ADMINISTRATOR-ACCOUNT SUPPORT ASSOCIATE [address] [place] [address] Dept Dept. Visit Date: August 09, 2023 Mr.Steven Melendrez Date of : 1960 MRN/E #: [id number] Chief Complaint: Patient presents with: Establish Care: Previous pt. Of dr. Young at [facility]. Think he may have a seizure or stoke. Went to [facility] for 5 week. ([facility]y hart in [facility]) Diarrhea: X 2 months. BM is [...] lbs. Was 165 lbs prior to the [facility] in June. Has frequent nausea and vomiting. Has a low appetite Unsure of what his last A1C was BS are either really high or low. Has a freestyle mango. Taking Lantus insulin. No meal time insulin. Taking Farxiga and Metformin (has been on that for awhile). 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 States he either had a seizure or stroke and was placed in the hospital and then went to a [facility] for 5 weeks. 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 Started smoking [...] MEDICAL HISTORY Diagnosis Date Anxiety Aortic aneurysm ([facility]) S/P Repair Aortic aneurysm ([facility]) Aortic valve disorder S/P Replacement CAD (coronary artery disease) nonobstructive Coronary artery disease Depression Diabetes mellitus, type II ([facility]) Insulin dependent Hx of ascending aorta repair Hyperlipidemia Hypertension Non-ST elevation MA (NSTEMI) ([facility]) 06/24 NSTEMI (non-ST elevated myocardial infarction) ([facility]) Pacemaker Pacemaker Paroxysmal atrial fibrillation ([facility]) RBBB (right bundle branch block) S/P aortic valve replacement [employer] 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 Insulin [place], Disposable, (NORBERTO PEN NEEDLE) 32 gauge x [...] (around 11/09/2023) for DM follow-up. Marianna Wagner APRN.ACCOUNT SUPPORT ASSOCIATE, signed on August 09, 2023 1:13 PM documented in this encounter[facility] Discharge summary Author Refugio Rojas [facility] May 20, 2023 9:40am Note Date/Time May 20, 2023 9:3 0am [facility] Medical Records Department [address] [place] [address] Transfer to [facility] MR#: [id number] Acct: [id number] Name: ANALILIA MELENDREZ Rep #:[id number] : 1960 62 From: Refugio Rod PCP: ALAN Chahal tus:ADM IN Certification of patient admission REQUIRED AT TIME OF ADMISSION. I CERTIFY THAT POST-HOSPITAL ECF SERVICES ARE REQUIRED TO BE GIVEN ON AN IN-PATIENT BASIS BECAUSE OF THE ABOVE NAMED PATIENT'S NEED FOR SHELTER CARE ON A CONTINUING BASIS FOR THE [...] start patient on norepinephrine. Consult placed to legal support analyst 05/16: Sepsis has resolved. 2. Chronic alcohol [...] furosemide 40 mg IV daily yesterday by superintendent [facility] laboratory. BMP from today pending. 4. Mild hyponatremia [...] - Requested for PT OT eval and director social welfare to assist with discharge planning 18. Anasarca [...] Refugio Rojas Primary Care Provider: Andreas Pathak [employer] Consulting Providers: Conrado Pro; Maya Melo; Conrado [...] in before D/C Order can be placed): [facility] Facility 05/20/23939 <Electronically signed by Refugio Rojas MD> Cosigner Signature (if applicable): CC: ALAN Pathak; Dr. Conrado Morel MD; Dr. Conrado Pro DO; Dr. Maya Melo MD ~ [facility] Work Phone: 1(895) 244-409604-11-2024 Discharge summary Author Refugio Rojas [facility] May 20, 2023 12:37pm Note Date/Time May 20, 2023 12: 37pm [facility] Medical Records Department [address] [place] [address] Discharge Summary 05/20/23939 MR#: [id number] Acct: [id number] Name: ANALILIA EMLENDREZ Rep #:[id number] : 1960 62 From: Refugio Rod PCP: ALAN Chahal [facility] tus:ADM IN [facility] Prov[facility] Date of Admission: 05/09/23 Date of Discharge: 05/20/23 Primary Care Physician: ALAN Chahal Consultations 05/10/23 09:57 Consult: Outside Property Agent / Pulmonary Medicine Routine Consulting Provider: Intensivists/Pulmonary Med Reason for Consult: sepsis EMERGENT Consult: No Notified: Yes Date Notified: 05/10/23 Time Notified: 09:57 Method of Notification: Text 05/13/23 08:44 Consult: Nephrology Routine Consulting Provider: Maya Melo Reason for Consult: MALIK EMERGENT Consult: No Notified: Yes Date Notified: 05/13/23 Time Notified: 08:44 Method of Notification: Text Comments:: Notified [employer]URNER Reason For Visit: ACUTE CYSTITIS, WITHOUT HEMATURIA [...] start patient on norepinephrine. Consult placed to legal support analyst 05/16: Sepsis has resolved. 2. Chronic alcohol [...] furosemide 40 mg IV daily yesterday by superintendent geophysical laboratory. BMP from today pending. 05/18: On diuretic. Follow-up with superintendent geophysical laboratory in 2 weeks 4. Mild hyponatremia ? [...] - Requested for PT OT eval and director social welfare to assist with discharge planning 18. Anasarca [...] 82.4 H, Lymph % (Auto) 9.8 L, Turner % (Auto) 5.6, Eos % (Auto) 0.7, [...] Refugio Rojas Primary Care Provider: Andreas Pathak [employer] Consulting Providers: Conrado Pro; Maya Melo; Conrado [...] in before D/C Order can be placed): [facility] Facility Charges/Coding Visit Charges Inpatient E&M: 46752 Disch Hosp >30min 05/20/23 1237 <Electronically signed by Refugio Rojas MD> Cosigner Signature (if applicable): CC: ALAN Pathak; Dr. Refugio Rojas MD~ Signed [facility] Work Phone: 1(886) 475-779504-10-2024 Progress note Author Refugio Rojas [facility] May 19, 2023 2:23pm Note Date/Time May 19, 2023 7:[address] [facility] Medical Records Department [address] [place] [address] Progress Note - Hospitalist 05/19/23 0724 MR#: [id number] Acct: [id number] Name: ANALILIA MELENDREZ Rep #:[id number] : 1960 62 From: Refugio Rod PCP: ALAN Chahal Sta tus:ADM IN Location: [place] [address] Reason for Visit Reason for Visit: Diagnoses [...] 85.7 H, Lymph % (Auto) 7.7 L, Turner % (Auto) 4.5, Eos % (Auto) 0.6, [...] start patient on norepinephrine. Consult placed to legal support analyst 05/16: Sepsis has resolved. 2. Chronic alcohol [...] furosemide 40 mg IV daily yesterday by superintendent geophysical laboratory. BMP from today pending. 4. Mild hyponatremia [...] - Requested for PT OT eval and director social welfare to assist with discharge planning 18. Anasarca [...] x 1 Charges/Coding Visit Charges Inpatient E&M: 20484 Subs Hosp L2 05/19/23 1420 <Electronically signed by Refugio Rojas MD> Cosigner Signature (if applicable): CC: ~ Signed [facility] Work Phone: 1(144) 793-482104-09-2024 Progress note Author Maya Melo [facility] May 18, 2023 7:25pm Note Date/Time May 18, 2023 7:25 pm [facility] Medical Records Department [address] [place] [address] Progress Note - Nephrology 05/18/231922 MR#: [id number] Acct: [id number] Name: ANALILIA MELENDREZ Rep #:[id number] : 1960 62 From: Maya rivers MD PCP: Andreas Pathak, [facility]-C Lizzy tus:ADM IN Location: [place] [address] Subjective Subjective No new complaints. Good urine [...] (Auto) 85.0 H, Lymph% (Auto) 7.8 L, Turner % (Auto) 4.4, Eos % (Auto) 0.6, [...] Cosigner Signature (if applicable): CC: ~ Signed [facility] Work Phone: 1(194) 437-258004-09-2024 Progress note Author Maya Melo [facility] May 18, 2023 10:28am Note Date/Time May 17, 2023 10:[address] [facility] Medical Records Department [address] [place] [address] Progress Note - Nephrology 05/17/23 0959 MR#: [id number] Acct: [id number] Name: ANALILIA MELENDREZ Rep #:[id number] : 1960 62 From: Estefany MAY PCP: ALAN Chahal Sta tus:ADM IN Location: [place] [address] Subjective Subjective Following for MALIK Patient resting [...] 83.3 H, Lymph % (Auto) 8.6 L, Turner % (Auto) 4.6, Eos % (Auto) 1.1, [...] by Maya Melo MD> CC: ~ Signed [facility] Work Phone: 1(397) 415-277204-09-2024 Progress note Author Refugio Rojas [facility] May 18, 2023 8:36am Note Date/Time May 18, 2023 8:[address] [facility] Medical Records Department [address] [place] [address] Progress Note - Hospitalist 05/18/23 0828 MR#: [id number] Acct: [id number] Name: ANALILIA MELENDREZ Rep #:[id number] : 1960 62 From: Refugio Rod PCP: ALAN Chahal Sta tus:ADM IN Location: [place] [address] Reason for Visit Reason for Visit: Diagnoses [...] (Auto) 85.0 H, Lymph% (Auto) 7.8 L, Turner % (Auto) 4.4, Eos % (Auto) 0.6, [...] start patient on norepinephrine. Consult placed to legal support analyst 05/16: Sepsis has resolved. 2. Chronic alcohol [...] furosemide 40 mg IV daily yesterday by superintendent geophysical laboratory. BMP from today pending. 4. Mild hyponatremia [...] - Requested for PT OT eval and director social welfare to assist with discharge planning 18. Anasarca ? Suspected to be secondary to hypoalbuminemia given patient chronic liver disease. Patient did receive IV Lasix 80 mg x 1 Charges/Coding Visit Charges Inpatient E&M: 22477 Subs Hosp L2 05/18/23 08 <Electronically signed by Refugio Rojas MD> Cosigner Signature (if applicable): CC: ~ Signed ADDENDUM by Dr. Refugio Rojas MD on 05/18/23 at 0835 Addendum Patient has been in antibiotic since admission 05/09/2023. Initially on ceftriaxone but was changed to Zosyn when transferred to ICU from [facility]. Zosyn then changed to cefdinir. Patient [...] Cosigner Signature (if applicable): cc: ~* Signed [facility] Work Phone: 1(212) 777-746304-08-2024 Progress note Author Refugio Rojas [facility] May 17, 2023 9:21am Note Date/Time May 17, 2023 7:[address] [facility] Medical Records Department [address] [place] [address] Progress Note - Hospitalist 05/17/2345 MR#: [id number] Acct: [id number] Name: ANALILIA MELENDREZ Rep #:[id number] : 1960 62 From: Refugio Rod PCP: ALAN Chahal Sta tus:ADM IN Location: [place] [address]- 1 Reason for Visit Reason for Visit: [...] (Auto) 82.3 H, Lymph %(Auto) 8.7 L, Turner % (Auto) 5.5, Eos % (Auto) 1.2, [...] 83.3 H, Lymph % (Auto) 8.6 L, Turner % (Auto) 4.6, Eos % (Auto) 1.1, [...] start patient on norepinephrine. Consult placed to legal support analyst 05/16: Sepsis has resolved. 2. Chronic alcohol dependence with acute alcohol withdrawal ? Admitted to regular nursing floor managed with phenobarb taper.? Patient progressed being monitored with [facility] protocol 05/16: Earlier phenobarbital discontinued as patient [...] - Requested for PT OT eval and director social welfare to assist with discharge planning 18. Anasarca ? Suspected to be secondary to hypoalbuminemia given patient chronic liver disease. Patient did receive IV Lasix 80 mg x 1 Charges/Coding Visit Charges Inpatient E&M: 57436 Subs Hosp L2 05/17/23918 <Electronically signed by [...] Cosigner Signature (if applicable): cc: ~* Signed [facility] Work Phone: 1(811) 510-226604-07-2024 Progress note Author Conrado Morel [facility] May 16, 2023 9:45am Note Date/Time May 16, 2023 8:05 am [facility] Medical Records Department [address] [place] [address] Progress Note - Hospitalist 05/16/23804 MR#: [id number] Acct: [id number] Name: ANALILIA MELENDREZ Rep #:[id number] : 1960 62 From: Conrado Morel MD PCP: ALAN Chahal tus:ADM IN Location: [place] [address] Reason for Visit Reason for Visit: Diagnoses [...] start patient on norepinephrine. Consult placed to legal support analyst ? 05/11/2023; patient remains in ICU did [...] - Requested for PT OT eval and director social welfare to assist with discharge planning 18. Anasarca [...] 35 Minutes Charges/Coding Visit Charges Inpatient E&M: 60542 Subs Hosp L2 05/16/23 0945 <Electronically signed by Conrado Morel MD> Cosigner Signature (if applicable): CC: ~ Signed [facility] Work Phone: 1(617) 701-596504-06-2024 Progress note Author Earnest Hamlin tr [facility] May 15, 2023 6:15pm Note Date/Time May 15, 2023 5:[address] [facility] Medical Records Department [address] [place] [address] Progress Note - Nephrology 05/15/23 1868 MR#: [id number] Acct: [id number] Name: ANALILIA MELENDREZ Rep #:[id number] : 1960 62 From: Earnest ortiz MD PCP: ALAN Chahal tus:ADM IN Location: [place] [address] Subjective Subjective Following for acute kidney injury. [...] 76.8 H, Lymph % (Auto) 10.6 L, Turner % (Auto) 8.5, Eos % (Auto) 1.7, [...] Cosigner Signature (if applicable): CC: ~ Signed [facility] Work Phone: 1(102) 534-209504-06-2024 Progress note Author Conrado Morel [facility] May 15, 2023 8:55am Note Date/Time May 15, 2023 8:[address] [facility] Medical Records Department [address] [place] [address] Progress Note - Hospitalist 05/15/23 0814 MR#: [id number] Acct: [id number] Name: ANALILIA MELENDREZ Rep #:[id number] : 1960 62 From: Conrado Morel MD PCP: ALAN Chahal tus:ADM IN Location: [place] [address] Reason for Visit Reason for Visit: Diagnoses [...] 76.8 H, Lymph % (Auto) 10.6 L, Turner % (Auto) 8.5, Eos % (Auto) 1.7, [...] start patient on norepinephrine. Consult placed to legal support analyst ? 05/11/2023; patient remains in ICU did [...] - Requested for PT OT eval and director social welfare to assist with discharge planning Time spent in the patient's overall evaluation,decision-making process, review of diagnostic data, adjustment of management, discussion with other providers, nursing nursing and ancillary staff involved in patient's care documentation, 35 Minutes Charges/Coding Visit Charges Inpatient E&M: 12200 Subs Hosp L2 05/15/23 0855 <Electronically signed by Conrado Morel MD> Cosigner Signature (if applicable): CC: ~ Signed [facility] Work Phone: 1(702) 372-349904-05-2024 Progress note Author Milagros Bess [facility] May 14, 2023 11:00am Note Date/Time May 14, 2023 11:[address] [facility] Medical Records Department [address] [place] [address] Progress Note - Nephrology 05/14/23 1056 MR#: [id number] Acct: [id number] Name: ANALILIA MELENDREZ Rep #:[id number] : 1960 62 From: Milagros bourne MD PCP: ALAN Chahal tus:ADM IN Location: [place] [address] Subjective Subjective Follow-up on acute kidney injury. [...] (Auto) 75.4 H, Lymph %(Auto) 10.3 L, Turner % (Auto) 9.5, Eos % (Auto) 1.4, [...] Cosigner Signature (if applicable): CC: ~ Signed [facility] Work Phone: 1(765) 896-172704-05-2024 Consult note Author Milagros Bess [facility] May 14, 2023 10:47am Note Date/Time May 13, 2023 1:[address] [facility] Medical Records Department [address] [place] [address] [place] [address] Consultation - Nephrology 05/13/23 1254 MR#: [id number] Acct: [id number] Name: ANALILIA MELENDREZ Rep #:[id number] : 1960 62 From: Estefany MAY PCP: ALAN Chahal tus:ADM IN Location: [place] [address] Assessment & Plan Assessment/Plan (1) MALIK (acute kidney injury): (2) Sepsis: (3) Chronic alcohol abuse: PLAN: Plan This is a 62-year-old male with past medical history significant for hypertension, hyperlipidemia, diabetes mellitus type 2, diabetic neuropathy, history of coronary artery disease status post MA, history of mechanical aortic valve replacement converted [...] time there is no acute indication for LEARNING FACILITATOR. Renal ultrasound did not show any evidence [...] pain. Patient was just recently admitted to [facility] from April 20 April 26 for help with alcohol detoxification, discharged to his father's home. Patient has history of hypertension, hyperlipidemia, diabetes mellitus type 2, diabetic neuropathy, history of coronary artery disease status post MA, history of mechanical aortic valve replacement converted [...] his creatinine is up to 2.85 mg/dL. [facility] AAA (abdominal aortic aneurysm) Abdominal [...] (Auto) 79.2 H, Lymph %(Auto) 7.4 L, Turner % (Auto) 9.6, Eos % (Auto) 2.0, [...] <Electronically signed by Milagros Bess MD> CC: BUCKET TURNERAstrid Pathak; Dr. Conrado Pro DO; Dr. Maya Melo MD~ Signed [facility] Work Phone: 1(597) 640-151004-05-2024 Progress note Author Conrado Morel [facility] May 14, 2023 9:55am Note Date/Time May 14, 2023 7:[address] [facility] Medical Records Department [address] [place] [address] Progress Note - Hospitalist 05/14/23 0734 MR#: [id number] Acct: [id number] Name: ANALILIA MELENDREZ Rep #:[id number] : 1960 62 From: Conrado Morel MD PCP: ALAN Chahal Sta tus:ADM IN Location: [place] [address] Reason for Visit Reason for Visit: Diagnoses [...] start patient on norepinephrine. Consult placed to legal support analyst ? 05/11/2023; patient remains in ICU did [...] - Requested for PT OT eval and director social welfare to assist with discharge planning Time spent in the patient's overall evaluation,decision-making process, review of diagnostic data, adjustment of management, discussion with other providers, nursing nursing and ancillary staff involved in patient's care documentation, 35 Minutes Charges/Coding Visit Charges Inpatient E&M: 37913 Subs Hosp L2 05/14/23 0955 <Electronically signed by Conrado Morel MD> Cosigner Signature (if applicable): CC: ~ Signed [facility] Work Phone: 1(306) 463-184904-04-2024 Progress note Author Conrado Morel [facility] May 13, 2023 8:53am Note Date/Time May 13, 2023 8:50 am [facility] Medical Records Department [address] [place] [address] Progress Note - Hospitalist 05/13/23 0850 MR#: [id number] Acct: [id number] Name: ANALILIA MELENDREZ Rep #:[id number] : 1960 62 From: Conrado Morel MD [...] (Auto) 79.2 H, Lymph %(Auto) 7.4 L, Turner % (Auto) 9.6, Eos % (Auto) 2.0, [...] [facility]. If patient does not respond to fluid resuscitation plan will be to start patient on norepinephrine. Consult placed to legal support analyst ? 05/11/2023; patient remains in ICU did [...] 40 Minutes Charges/Coding Visit Charges Inpatient E&M: 91959 Subs Hosp L2 05/13/23 0853 <Electronically signed by Conrado Morel MD> Cosigner Signature (if applicable): CC: ~ Signed [facility] Work Phone: 1(840) 884-520804-04-2024 Progress note Author Barryyolanda Sheehan [facility] May 13, 2023 8:28am Note Date/Time May 13, 2023 7:23 am [facility] Medical Records Department [address] [place] [address] Progress Note - Outside Property Agent 05/13/23 0721 MR#: [id number] Acct: [id number] Name: ANALILIA MELENDREZ Rep #:[id number] : 1960 62 From: Barry Sheehan PCP: [...] 7 g/dL. This note was generated with [employer]chelonation software. It may contain incorrectwords, spelling, and [...] (Auto) 79.2 H, Lymph %(Auto) 7.4 L, Turner % (Auto) 9.6, Eos % (Auto) 2.0, [...] flat affect Charges/Coding Visit Charges Inpatient E&M: 82424 Subs Hosp L2 05/13/23 0828 <Electronically signed by Barry Sheehan DO> Cosigner Signature (if applicable): CC: ~ Signed [facility] Work Phone: 1(420) 934-805004-03-2024 Progress note Author Barry Sheehan [facility] May 12, 2023 9:16am Note Date/Time May 12, 2023 6:[address] [facility] Medical Records Department [address] [facility] [place] [address] Progress Note - Outside Property Agent 05/12/23 0646 MR#: [id number] Acct: [id number] Name: ANEESHANALILIA JAMARI Rep #:[id number] : 1960 62 From: Barry Sheehan DO [...] gastroenterology consultation. This note was generated with [employer] dictation software. It may contain incorrectwords, spelling, [...] 82.9 H, Lymph % (Auto) 5.3 L, Turner % (Auto) 8.3, Eos % (Auto) 1.9, [...] flat affect Charges/Coding Visit Charges Inpatient E&M: 30614 Subs Hosp L2 05/12/23 0916 <Electronically signed by Barry Sheehan DO> Cosigner Signature (if applicable): CC: ~ Signed [facility] Work Phone: 1([phone]) 900-680104-03-2024 Progress note Author Conrado Morel [facility] May 12, 2023 7:33am Note Date/Time May 12, 2023 7:17 am [facility] Medical Records Department [address] [place] [address] Progress Note - Hospitalist 05/12/23 0717 MR#: [id number] Acct: [id number] Name: ANALILIA MELENDREZ Rep #:[id number] : 1960 62 From: Conrado Morel MD [...] 82.9 H, Lymph % (Auto) 5.3 L, Turner % (Auto) 8.3, Eos % (Auto) 1.9, [...] start patient on norepinephrine. Consult placed to legal support analyst ? 05/11/2023; patient remains in ICU did [...] 52 Minutes Charges/Coding Visit Charges Inpatient E&M: 60732 Subs Hosp L3 05/12/23 0795 <Electronically signed by Conrado Morel MD> Cosigner Signature (if applicable): CC: ~ Signed [facility] Work Phone: 1([phone]) 668-373804-03-2024 Progress note Author Iman Aguayo [facility] May 12, 2023 6:24am Note Date/Time May 12, 2023 1:57 am [facility] Medical Records Department [address] [place] [address] Progress Note - Hospitalist 05/12/23 0156 MR#: [id number] Acct: [id number] Name: ANALILIA MELENDREZ Rep #:[id number] : 1960 62 From: Iman Aguayo MD [...] Cosigner Signature (if applicable): cc: ~* Signed [facility] Work Phone: 1(825) 474-455904-02-2024 Consult note Author Barry Sheehan [facility] May 11, 2023 9:46am Note Date/Time May 10, 2023 2:08 pm [facility] Medical Records Department [address] [place] [address] Pharmacokinetic/Renal -Consult 05/10/23 1408 MR#: [id number] Acct: [id number] Name: ANALILIA MELENDREZ Rep #:[id number] : 1960 62 From: Yuri Robbins PCP: [...] Date Barry Sheehan DO CC: ~ Signed [facility] Work Phone: 1(554) 785-300104-02-2024 Progress note Author Barry Sheehan [facility] May 11, 2023 8:44am Note Date/Time May 11, 2023 7:22 am [facility] Medical Records Department [address] [place] [address] Progress Note - Outside Property Agent 05/11/23 0720 MR#: [id number] Acct: [id number] Name: ANALILIA MELENDREZ Rep #:[id number] : 1960 62 From: Barry Sheehan DO [...] withdrawal symptoms. This note was generated with [employer] software. It may contain incorrectwords, spelling, and [...] 94.5 H, Lymph % (Auto) 2.3 L, Turner % (Auto) 2.0, Eos % (Auto) 0.0, [...] 89.8 H, Lymph % (Auto) 2.4 L, Turner% (Auto) 6.0, Eos % (Auto) 0.9, Baso [...] affect normal Charges/Coding Visit Charges Inpatient E&M: 55354 Subs Hosp L2 05/11/23 0844 <Electronically signed by Barry Sheehan DO> Cosigner Signature (if applicable): CC: ~ Signed [facility] Work Phone: 1(152) 204-782604-02-2024 Progress note Author Conrado Morel [facility] May 11, 2023 8:43am Note Date/Time May 11, 2023 7:27 am [facility] Medical Records Department [address] [place] [address] Progress Note - Hospitalist 04/04/03 725 MR#: [id number] Acct: [id number] Name: ANALILIA MELENDREZ Rep #:[id number] : 1960 62 From: Conrado Morel MD [...] reason (05/09/23) Subjective Subjective Patient transferred from [facility] to ICU after being diagnosed with severe [...] 94.5 H, Lymph % (Auto) 2.3 L, Turner % (Auto) 2.0, Eos % (Auto) 0.0, [...] 89.8 H, Lymph % (Auto) 2.4 L, Turner% (Auto) 6.0, Eos % (Auto) 0.9, Baso [...] start patient on norepinephrine. Consult placed to legal support analyst ? 05/11/2023; patient remains in ICU did [...] 52 Minutes Charges/Coding Visit Charges Inpatient E&M: 62487 Subs Hosp L3 05/11/23 0843 <Electronically signed by Conrado Morel MD> Cosigner Signature (if applicable): CC: ~ Signed [facility] Work Phone: 1(875) 331-929704-02-2024 Progress note Author Conrado Morel [facility] May 11, 2023 7:27am Note Date/Time May 10, 2023 9:56 am [facility] Medical Records Department [address] [place] [address] Progress Note - Hospitalist 05/10/23 0953 MR#: [id number] Acct: [id number] Name: ANALILIA MELENDREZ Rep #:[id number] : 1960 62 From: Conrado Morel MD [...] 92.8 H, Lymph % (Auto) 2.7 L, Turner % (Auto) 3.2, Eos % (Auto) 0.0, [...] Sl. Cloudy, Urine pH 8.0, Ur Specific [place] 1.015, Urine Protein 100 H, Urine Glucose [...] 94.5 H, Lymph % (Auto) 2.3 L, Turner % (Auto) 2.0, Eos % (Auto) 0.0, [...] start patient on norepinephrine. Consult placed to legal support analyst ? 2. Chronic alcohol dependence with acute [...] Charges/Coding Multi Select Codes Hospitalists' Procedures Procedures: 96624 Critical Care 1st Hr and [address]2558 Advncd Care Plan addl 30 Min 05/10/23 5244 <Electronically signed by Conrado Morel MD> Cosigner [...] Cosigner Signature (if applicable): cc: ~* Signed [facility] Work Phone: 1(162) 156-156304-02-2024 Consult note Author Barry Sheehan [facility] May 11, 2023 7:20am Note Date/Time May 10, 2023 11:3 7am [facility] Medical Records Department [address] [place] [address] Consultation - Outside Property Agent 05/10/23 1129 MR#: [id number] Acct: [id number] Name: ANALILIA MELENDREZ Rep #:[id number] : 1960 62 From: Barry Sheehan DO [...] withdrawal symptoms. This note was generated with [employer] dictation software. It may contain incorrectwords, spelling, [...] patient continues to report suprapubic abdominal discomfort. [facility] Medical History AAA (abdominal aortic aneurysm) [...] 92.8 H, Lymph % (Auto) 2.7 L, Turner % (Auto) 3.2, Eos % (Auto) 0.0, [...] Sl. Cloudy, Urine pH 8.0, Ur Specific [place] 1.015, Urine Protein 100 H, Urine Glucose [...] 94.5 H, Lymph % (Auto) 2.3 L, Turner % (Auto) 2.0, Eos % (Auto) 0.0, [...] bolus ordered Charges/Coding Visit Charges Inpatient E&M: 31201 Init Hosp L3 05/11/23 0720 <Electronically signed by Barry Sheehan DO> Cosigner Signature (if applicable): CC: ALAN Pathak; Dr. Alcides Tucker MD; Dr. Trenton Strong MD; Dr. Aramis Palacios MD; Dr. Conrado Pro DO; Dr. Barry Sheehan DO; Dr. Aldo Castellano MD; Dr. Mt Kearns MD; Dr. Mundo Marcelino MD; Dr. Meli Miels MD; Dr. Tiara Horowitz MD; Dr. Jose Pacheco MD; Dr. Yunier Allred MD; Dr. Marquez Elmore MD; Dr. Bronson Peterson MD; Dr. Toni Dodge MD; Dr. Chen Merrill MD~ Signed [facility] Work Phone: 1(752) 227-590804-01-2024 History and physical note Author Conrado [facility] May 10, 2023 3:29am Note Date/Time May 09, 2023 8:3 7pm [facility] Medical Records Department [address] [place] [address] H&P Exam - Hospitalist 05/09/232033 MR#: [id number] Acct: [id number] Name: ANALILIA MELENDREZ Rep #:[id number] : 1960 62 From: Conrado Gonzalez DO PCP: ALAN Chahal tus:ADM [facility] - General General Date of Admission: [...] history of coronary artery disease; status post MA, history of mechanical aortic valve replacement (2014); [...] with patient offered to go to a custodial facility upon discharge which he refused to so he could be discharged to his father's home whonow re-presents to [facility] ER complaining of abdominal pain. Unfortunately, Mr. [...] expected to be greater than 48 hours. [facility] Medical History AAA (abdominal aortic aneurysm) [...] Taken 11/11/21] dapagliflozin propanediol 10 mg tablet ([facility]) 10 mg PO DAILY DIABETES 09/30/21 [...] 92.8 H, Lymph % (Auto) 2.7 L, Turner % (Auto) 3.2, Eos % (Auto) 0.0, [...] Sl. Cloudy, Urine pH 8.0, Ur Specific [place] 1.015, Urine Protein 100 H, Urine Glucose [...] 16:54 EDT Reading Location ID and State: [facility] / [place] Tel [phone], Service support , Assessment & Plan Assessment/Plan [...] protocol focusing mainly on phenobarbital taper. 3. Hvuch-nw-vlihpsu severe protein calorie malnutrition with hypoalbuminemia of1.5 [...] (allegedly quit 10 years ago) - Check Media urine drug screen this admission. 11. History of coronary artery disease; status post MA - Stable. Continue homeregimen as previous. 12. [...] 75 minutes. Charges/Coding Visit Charges Inpatient E&M: 53634 Init Hosp L3 05/10/23 0329 <Electronically signed by Conrado Pro DO> Cosigner Signature (if applicable): CC: ALAN Pathak; Dr. Conrado Pro DO~ Signed [facility] Work Phone: 1(562) 737-291404-01-2024 Discharge summary Author Carlos Augustin [facility] May 09, 2023 10:05pm Note Date/Time May 09, 2023 1:5 6pm [facility] Medical Records Department [address] [place] [address] Emergency Department Summary 05/09/23 MR#: [id number] Acct: [id number] Name: ANALILIA MELENDREZ Rep #:[id number] : 1960 62 From: Carlos Augustin MD PCP: ALAN Chahal tus:ADM IN Location: [address] <ALAN Dick - Last Filed: 05/09/23 [...] discharge was offered to go to a custodial facility secondary to the weakness as well [...] <ALAN Dick - Last Filed: 05/09/23 20:40> [facility] Medical History AAA (abdominal aortic aneurysm) [...] <ALAN Dick - Last Filed: 05/09/23 20:40> [facility] Lab Data Labs: Laboratory Results [...] 92.8 H Lymph % (Auto) 2.7 L Turner % (Auto) 3.2 Eos % (Auto) 0.0 [...] Sl. Cloudy Urine pH 8.0 Ur Specific [place] 1.015 Urine Protein 100 H Urine Glucose [...] Comments: Sinus tachycardia, rate of 40 bpm, VT interval 112 ms, QRS duration 100 ms, [...] Augustin MD - Last Filed: 05/09/23 17:14> [facility] MDM Narrative Medical decision making narrative: I [...] tenderness, no guarding or rebound tenderness. No [place] sign or Huizar Gillespie sign. No CVA [...] 92.8 H Lymph % (Auto) 2.7 L Turner % (Auto) 3.2 Eos % (Auto) 0.0 [...] Sl. Cloudy Urine pH 8.0 Ur Specific [place] 1.015 Urine Protein 100 H Urine Glucose [...] Provider: Andreas Pathak NP Referrals: Andreas Pathak BUCKET TURNER, BUCKET TURNER-C [Primary Care Provider] - Disposition Disposition: Acute Care Hospital [facility] What to do if you have Problems For any increased pain, shortness of breath, bleeding, nausea or vomiting, chestpain, or any unexpected problems, contact your Primary Care Provider. Call [facility] ([phone]) or report to the closest Emergency Room. Call 911 if necessary. 05/09/232204 <Electronically signed by Carlos Augustin MD> Cosigner Signature (if applicable): 05/09/232039 <Electronically signed by Jacky MAY> CC: BUCKET TURNERAstrid Pathak ~ Signed [facility] Work Phone: 1(888) 839-766703-31-2024 Discharge summary Author Carlos Augustin [facility] May 09, 2023 10:05pm Note Date/Time May 09, 2023 1:5 6pm [facility] Medical Records Department [address] [place] [address] Emergency Department Summary 05/09/23 MR#: [id number] Acct: [id number] Name: ANALILIA MELENDREZ Rep #:[id number] : 1960 62 From: Carlos Augustin MD PCP: ALAN Chahal tus:ADM IN Location: [address] <ALAN Dick - Last Filed: 05/09/23 [...] discharge was offered to go to a custodial facility secondary to the weakness as well [...] evaluation for acute on chronic abdominal pain. [facility] <ALAN Dick - Last Filed: 05/09/23 [...] <ALAN Dick - Last Filed: 05/09/23 20:40> [facility] Lab Data Labs: Laboratory Results [...] 92.8 H Lymph % (Auto) 2.7 L Turner % (Auto) 3.2 Eos % (Auto) 0.0 [...] Sl. Cloudy Urine pH 8.0 Ur Specific [place] 1.015 Urine Protein 100 H Urine Glucose [...] Comments: Sinus tachycardia, rate of 40 bpm, VT interval 112 ms, QRS duration 100 ms, [...] Augustin MD - Last Filed: 05/09/23 17:14> [facility] Narrative Medical decision making narrative: I [...] 92.8 H Lymph % (Auto) 2.7 L Turner % (Auto) 3.2 Eos % (Auto) 0.0 [...] Sl. Cloudy Urine pH 8.0 Ur Specific [place] 1.015 Urine Protein 100 H Urine Glucose [...] Andreas Pathak NP Referrals: Andreas Pathak NP, BUCKET TURNER-C [Primary Care Provider] - Disposition Disposition: Acute Care Hospital [facility] What to do if you have Problems For any increased pain, shortness of breath, bleeding, nausea or vomiting, chestpain, or any unexpected problems, contact your Primary Care Provider. Call [facility] ([phone]) or report to the closest Emergency Room. Call 911 if necessary. 05/09/232204 <Electronically signed by Carlos Augustin MD> Cosigner Signature (if applicable): 05/09/232039 <Electronically signed by Jacky MAY> CC: BUCKET TURNERAstrid Pathak ~ Signed [facility] Work Phone: 1(392) 965-513603-18-2024 Progress note Author [facility] April 26, 2023 3:53pm Note Date/Time April 26, 2023 11: 09am [facility] Medical Records Department [address] [place] [address] Progress Note 04/26/23 1105 MR#: [id number] Acct: [id number] Name: ANALILIA MELENDREZ Rep #:[id number] : 1960 62 From: Ashley Alvarado MD PCP: ALAN Chahal tus:ADM [place] Location: [place] CG112-9 Subjective Subjective Patient seen and examined. He [...] Awaiting placement. Charges/Coding Visit Charges Inpatient E&M: 03995 Subs Hosp L2 04/26/23 1553 <Electronically signed by Ashley Alvarado MD> Ashley Alvarado MD Cosigner Signature (if applicable): CC: ~ Signed [facility] Work Phone: 1(512) 437-625603-17-2024 Progress note Author Ashley [facility] April 25, 2023 2:40pm Note Date/Time April 25, 2023 11: 41[facility] Medical Records Department [address] [place] [address] Progress Note 04/25/23 1135 MR#: [id number] Acct: [id number] Name: ANALILIA MELENDREZ Rep #:[id number] : 1960 62 From: Ashley Alvarado MD PCP: Andreas Pathak, BUCKET TURNERMiahC Sta tus:ADM IN Location: [place] [address] Subjective Subjective Patient seen and examined. He [...] Awaiting placement. Charges/Coding Visit Charges Inpatient E&M: 56449 Subs Hosp L2 04/25/23 1440 <Electronically signed by Ashley Alvarado MD> Ashley Alvarado MD Cosigner Signature (if applicable): CC: ~ Signed [facility] Work Phone: 1(632) 687-358903-16-2024 Progress note Author Ashley [facility] April 24, 2023 4:53pm Note Date/Time April 24, 2023 11: 10am [facility] Medical Records Department [address] [place] [address] Progress Note 04/24/23 1108 MR#: [id number] Acct: [id number] Name: ANALILIA MELENDREZ Rep #:[id number] : 1960 62 From: Ashley Alvarado MD PCP: ALAN Chahal Sta tus:ADM IN [facility] Subjective Subjective Patient seen and examined. He [...] Awaiting placement. Charges/Coding Visit Charges Inpatient E&M: 34686 Subs Hosp L2 04/24/23 7236 <Electronically signed by Ashley Alvarado MD> Ashley Alvarado MD Cosigner Signature (if applicable): CC: ~ Signed [facility] Work Phone: 1(686) 333-274803-15-2024 Progress note Author Ashley [facility] April 23, 2023 3:29pm Note Date/Time April 23, 2023 3:2 1pm [facility] Medical Records Department [address] [facility] [place] [address] Progress Note 04/23/23 1519 MR#: [id number] Acct: [id number] Name: ANALILIA MELENDREZ Rep #:[id number] : 1960 62 From: Ashley Alvarado MD PCP: Andreas Pathak BUCKET TURNERMiahC Sta tus:ADM IN [facility] Subjective Subjective Patient seen and examined. She [...] on board. Charges/Coding Visit Charges Inpatient E&M: 36405 Subs Hosp L2 04/23/23 9044 <Electronically signed by Ashley Alvarado MD> Ashley Alvarado MD Cosigner Signature (if applicable): CC: ~ Signed [facility] Work Phone: 1(911) 117-298803-15-2024 Consult note Author Yuri Robbins [facility] April 23, 2023 11:46am Note Date/Time April 23, 2023 11: 46am [facility] Medical Records Department [address] [place] [address] Counseling Note - Pharmacy 04/23/23 1146 MR#: [id number] Acct: [id number] Name: ANALILIA MELENDREZ Rep #:[id number] : 1960 62 From: Yuri Robbins PCP: ALAN Chahal tus:ADM IN Y Location: [place] [address] Pharmacy [place] Med Reconciliation Pharmacy Service has performed discharge [...] Signature (if applicable): Date CC: ~ Signed [facility] Work Phone: 1(226) 453-624403-15-2024 Consult note Author Yuri Robbins [facility] April 23, 2023 11:45am Note Date/Time April 23, 2023 11: 45am [facility] Medical Records Department [address] [place] [address] Counseling Note - Pharmacy 04/23/23 1145 MR#: [id number] Acct: [id number] Name: ANALILIA MELENDREZ Rep #:[id number] : 1960 62 From: Yuri Robbins PCP: ALAN Chahal tus:ADM IN Y Location: [place] [address] Pharmacy [place] Med Reconciliation Pharmacy Service has performed discharge [...] Cosigner Signature (if applicable): CC: ~ Signed [facility] Work Phone: 1(274) 910-352003-15-2024 Discharge summary Author Ashley Alvarado [facility] April 23, 2023 11:44am Note Date/Time April 23, 2023 11: 40am [facility] Medical Records Department [address] [place] [address] Instructions for Home/Discharge Instructions 04/23/23 1139 MR#: [id number] Acct: [id number] Name: ANALILIA MELENDREZ Rep #:[id number] : 1960 62 From: Ashley Alvarado MD [...] Pathak; Dr. Lucas Frausto MD ~ Signed [facility] Work Phone: 1(840) 397-837803-14-2024 Progress note Author [facility] April 22, 2023 3:41pm Note Date/Time April 22, 2023 11: [address] [place] [address] Health System Medical Records Department [address] [place] [address] Progress Note 04/22/23 1112 MR#: [id number] Acct: [id number] Name: DARRINANALILIA VERNON JAMARI Rep #:[id number] : 1960 62 From: Ashley Alvarado MD PCP: ALAN Chahal Sta tus:ADM IN Location: [facility] BS703-3 Subjective Subjective Patient seen and examined. He [...] Clarity Clear, Urine pH 8.0, Ur Specific [place] 1.015, Urine Protein 15 H, Urine Glucose [...] Encourage ambulation. Charges/Coding Visit Charges Inpatient E&M: 09833 Subs Hosp L2 04/22/23 1541 <Electronically signed by Ashley Alvarado MD> Ashley Alvarado MD Cosigner Signature (if applicable): CC: ~ Signed [facility] Work Phone: 1(299) 601-578103-13-2024 Progress note Author Ashley Alvarado [facility] April 21, 2023 4:06pm Note Date/Time April 21, 2023 2:5 4pm [facility] Medical Records Department [address] [place] [address] Progress Note 04/21/23 1449 MR#: [id number] Acct: [id number] Name: ANALILIA MELENDREZ Rep #:[id number] : 1960 62 From: Ashley Alvarado MD PCP: ALAN Chahal tus:ADM IN Location: [place] [address] Subjective Subjective Patient seen and examined. HE [...] 76.5 H, Lymph % (Auto) 11.2 L, Turner % (Auto) 10.2 H, Eos % (Auto) [...] (MDRD) Non-Af 69, BUN/Creatinine Ratio 5.2 L, Zdlcpkc622, Calcium 7.3 L, Total Bilirubin 1.00, AST [...] Encourage ambulation. Charges/Coding Visit Charges Inpatient E&M: 61958 Subs Hosp L2 04/21/23 1606 <Electronically signed by Ashley Alvarado MD> Ashley Alvarado MD Cosigner Signature (if applicable): CC: ~ Signed [facility] Work Phone: 1(962) 441-621703-12-2024 History and physical note Author Lucas Frausto [facility] April 20, 2023 7:17pm Note Date/Time April 20, 2023 3:2 9pm [facility] Medical Records Department [address] [place] [address] H&P Exam - Hospitalist 04/20/23 1526 MR#: [id number] Acct: [id number] Name: ANALILIA MELENDREZ Rep #:[id number] : 1960 62 From: Lucas loyola MD PCP: ALAN Chahal tus:ADM [facility] - General General Date of Admission: [...] having some anxiety as well as tremors. [facility] Medical History AAA (abdominal aortic aneurysm) [...] with colleagues Charges/Coding Visit Charges Inpatient E&M: 82437 Init Hosp L3 04/20/231916 <Electronically signed by Lucas Frausto MD> Cosigner Signature (if applicable): CC: ALAN Pathak; Dr. Lucas Frausto MD~ Signed [facility] Work Phone: 1(318) 113-910203-12-2024 Discharge summary Author Chris Call [facility] April 20, 2023 4:43pm Note Date/Time April 20, 2023 11: 43am [facility] Medical Records Department [address] [facility] [place] [address] Emergency Department Summary 04/20/23 MR#: [id number] Acct: [id number] Name: ANALILIA MELENDREZ Rep #:[id number] : 1960 62 From: Chris Harvey PCP: Andreas Pathak, BUCKET TURNER-C Sta tus:ADM IN Location: MS3 MT811-7 HPI HPI - GI History of Present [...] clinician: Hospitalist This note was generated with [employer] dictation software. It may contain incorrectwords, spelling, [...] Alcoholic hepatitis Disposition Disposition: Acute Care Hospital [facility] Discharge Date/Time: 04/20/23 16:21 What to do if you have Problems For any increased pain, shortness of breath, bleeding, nausea or vomiting, chestpain, or any unexpected problems, contact your Primary Care Provider. Call [facility] ([phone]) or report to the closest Emergency Room. Call 911 if necessary. 04/20/23 1643 <Electronically signed by Chris Harvey> Cosigner Signature (if applicable): CC: ALAN Pathak ~ Signed [facility] Work Phone: 1(338) 717-511202-19-2024 Evaluation + Plan note Future Scheduled Tests [...] Radiology* US Elastography Liver w/ABD Complete 03/05/23 [facility] 02-19-2024 Evaluation + Plan note Future Scheduled Tests Laboratory* Calcium Level Ionized 03/29/23 * Prostate Specific Antigen 07/14/23 * Reticulocytes (AO) 03/29/23 * A1C Hemoglobin 07/14/23 * Complete Blood Count 03/29/23 * Complete Blood Count 07/14/23 * Lipid Profile 07/14/23 * Albumin/Creatinine Ratio, Random Urine 07/14/23 * PTH, Intact 07/14/23 * Vitamin D Level 07/14/23 * Complete Metabolic Panel 07/14/23 [facility] 02-10-2024 Note. MICRO - Microbiology PROCEDURE: Blood [...] Locations *1: This test was performed at: [facility], [address] [place] [address], [facility] , [place] [facility] [place]03[place]2023 Note. MICRO - Microbiology PROCEDURE: Blood Culture [...] Locations *1: This test was performed at: [facility], [address] [place] [address], [address]- , [facility] hospital ([place]03-19-2023 Hospital Discharge instructions Patient Education 03/19/2023 11:39:35 [...] depending on your insurance coverage. Check with your[employer] company about what is covered. Keeping follow-up [...] 04/30/2017 Document Revised: 01/28/2018 Document Reviewed: 04/30/2017 Class Central Patient Education 2020 [employer]. 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 Imaging Results and Diagnostics please see [facility] Objective Vitals and Measurements T: 36.3 C [...] to schedule a follow-up appointment Where: [address] [place] [address]- Follow Up Appointments No qualifying data available. [...] BETTINA CERDA MD on 03/19/2023 12:39 PM [id number] Note Discharge Instructions Thank you for allowing [facility] to assist you with your healthcare needs. The following is importantdischarge information regarding your hospital visit. Your Care Team ANDREAS PATHAK APRN, CNP Your Diagnosis Altered mental status What to do next Scheduled Follow-Up Appointments Appointment Type When Where Contact InformationMEDS - Diabetic Individual Visit 04/12/2023 01:30 [facility] Diet Visits [phone] Follow Up Appointments Follow Up with ANDREAS PATHAK APRN, CNP When Within 1-2 days Why: Please call the office to schedule a follow-up appointment Where: [address] [place] [address]- The Following Activity and Diet Have Been [...] depending on your insurance coverage. Check with [employer] company about what is covered. Keeping follow-up [...] 04/30/2017 Document Revised: 01/28/2018 Document Reviewed: 04/30/2017 Class Central Patient Education 2020 [employer]. Additional Information VACCINATE! IT SAVES LIVES! Members of the community who have not yet received the COVID-19 vaccine and would like to receive it can visit one of [facility] vaccine clinics. There are many vaccine clinic locations within the [facility]. For locations and available times, please visit https://gettheshot.coronavirus.[place].gov/. It is important to note that some COVID mobile vaccine clinics are held outdoors and may be canceled in rainy or stormy conditions. To learn more about pediatric vaccinations (ages 5-11), we invite you to visit the [facility] webpage. https://www.[facility].org/pages/6813-Scvpa-Qimkudgissv-Nqjujvhenz-Bxxja-Nhz stions.htmlTo learn more about the COVID-19 vaccine, we invite you to visit the CDC website for a list of frequently asked questions.https://www.cdc.gov/coronavirus/2019-ncov/vaccines/faq.html [employer] Patient Portal Access Instructions: Stay connected with your healthcare team and access your personal medical information anytime with the [employer] Patient Portal. Please follow the directions below to create your [employer] account: 1.Access the email account you provided upon registration to the hospital/physician office.2.Look for an invitation email from [facility].3.Open the email and access the invitation link: AcceptInvitation to [employer].4.Fill in the required smith to create your account. To access your account, visit [email or web address]. Click the blue button labeled Access Patient [...] who you will allowto register on the [facility] [employer] Patient Portal for access to your information. You can also access the [facility] [employer] Patient Portal on the [facility] [employer] logan. Simply click on Patient Portal and then log into your account. If you would like to receive a full copy of your medical records, please contact the [facility] Medical Records Department by calling [phone], Wednesday through Wednesday between 8 a.m. and [...] Call your local pharmacy or go to [email or web address].[email or web address] to find one close to you.3.Make use of household items: Use cat litter or old coffee grounds to dispose medications if other options arenot available. Mix your drugs with these household products, seal them in an airtight container andthrow it into the garbage. Call [facility]: [phone] to be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 status, unspecified pancreatitis type documented in this encounter [facility] note* Diagnosis Diarrhea, unspecified type Acute pancreatitis, unspecified complication status, unspecified pancreatitis type [facility]* Diagnosis Anemia, unspecified type- Primary Weight loss Loss of weight Chronic pancreatitis, unspecified pancreatitis type ([facility]) Epigastric pain Abdominal pain, epigastric Right lower quadrant abdominal pain Abdominal pain, right lower quadrant documented in this encounter [facility] note* Diagnosis Primary hypertension- Primary Unspecified essential hypertension Type 2 diabetes mellitus with complication, with long-term current use of insulin ([facility]) Stage 3 chronic kidney disease, unspecified whether stage 3a or 3b CKD ([facility]) Hyperlipidemia, mixed Mixed hyperlipidemia Gastroesophageal reflux disease, unspecified whether esophagitis present Chronic pancreatitis, unspecified pancreatitis type ([facility]) Anemia, unspecified type documented in this encounter [facility] note* Diagnosis Anemia, unspecified type documented in this encounter [facility] note* Diagnosis Anemia, unspecified type- Primary documented in this encounter [facility] note* Diagnosis Gastroesophageal reflux disease, unspecified whether esophagitis present documented in this encounter [facility] note* Diagnosis Type 2 diabetes mellitus with complication, with long-term current use of insulin (HCC)- Primary Hyperlipidemia LDL goal <100 Other and unspecified hyperlipidemia Primary hypertension Unspecified essential hypertension documented in this encounter [facility] note* Diagnosis Type 2 diabetes mellitus with complication, with long-term current use of insulin (HCC) documented in this encounter [facility] note* Diagnosis Anemia, unspecified type Weight loss Loss of weight Chronic pancreatitis, unspecified pancreatitis type (HCC) Epigastric pain Abdominal pain, epigastric documented in this encounter [facility] note* Diagnosis Hyperlipidemia LDL goal <100 Other and unspecified hyperlipidemia Primary hypertension Unspecified essential hypertension documented in this encounter [facility] note* Diagnosis Anemia, unspecified type- Primary 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) documented in this encounter [facility] note* Diagnosis Primary hypertension Unspecified essential hypertension documented in this encounter [facility] note* Diagnosis Primary hypertension Unspecified essential hypertension Gastroesophageal reflux disease, unspecified whether esophagitis present documented in this encounter [facility] note* Diagnosis Onset Date Resolution Status Admit Date Adverse drug reaction acute June 25, 2024 10:15pm Ascites due to alcoholic cirrhosis acute June 25, 2024 1 0:15pm Hypokalemia acute June 25 10:15pm Lactic acidosis acute June 25, 2024 10:15pm Chronic alcohol abuse chronic June 25, 2024 10:15pm Chronic diarrhea chronic June 10:15pm [facility] Work Phone: Evaluation note* Diagnosis Chronic diarrhea Diarrhea Irritable bowel syndrome, unspecified type Hyperlipidemia LDL goal <100 Other and unspecified hyperlipidemia documented in this encounter [facility] note* Diagnosis Primary hypertension Unspecified essential hypertension documented in this encounter [facility] note* Diagnosis Nonrheumatic aortic valve stenosis- Primary Aortic valve disorders documented in this encounter [facility] note* Diagnosis Nonrheumatic aortic valve stenosis- Primary Aortic valve disorders [facility] Agu[facility] March 21, 2022 6:31pm Note Date/Time March 21, 2022 6:06pm [facility] Medical Records Department [address] [place] [address] H&P Exam - Hospitalist 03/21/22 1831 MR#: [id number] Acct: [id number] Name: ANALILIA MELENDREZ Rep #:[id number] : 1960 61 From: Iman Aguayo MD PCP: Andreas Pathak, ALAN Ball tus:ADM IN Location: [facility] [place]-5 HPI - General General Date of Admission: [...] recently 02/01/22 who now re-presents to the [facility] ED on 03/21/22 with history of unfortunately [...] alcohol upon requested evaluation, POC glucose 337. [facility] Medical History Acute hypokalemia Adrenal nodule [...] recently 02/01/22 who now re-presents to the [facility] ED on 03/21/22 with history of unfortunately [...] 75 minutes. Charges/Coding Visit Charges Inpatient E&M: 84589 Init Hosp L3 03/21/22 1831 <Electronically signed by Iman Aguayo MD> Cosigner Signature (if applicable): CC: BUCKET TURNER-C Andreas Pathak; Dr. Iman Aguayo MD~ Signed [facility] Work Phone: History and physical note Author Melonie De La Rosa [facility] Note Date/Time July 11, 2024 3:21p m [facility] Medical Records Department [address] [place] [address] H&P Exam - Hospitalist 07/11/24 1405 MR#: [id number] Acct: [id number] Name: ANALILIA MELENDREZ Rep #:[id number] : 1960 63 From: Melonie De La Rosa DO PCP: ALAN Wilde Status:REG E R Location: ED HPI - General General Date of Admission: 07/11/24 Date of Service: 07/11/24 Chief Complaint: Suicidal ideation/nausea vomiting HPI Narrative ANALILIA MELENDRZE, is a 63 M who presented to the emergency department at [facility] on 07/11/2024 with a chief complaint of [...] discussed with Dr. Fontanez prior to admission. [facility] Medical History Thrombocytopenia Chronic pancreatitis Macrocytosis [...] reflux #60 tabs 06/27/23 Unknown Rx release zqcdgw-bolyjozw-uedglra 1 cap PO TIDCM #90 caps 06/09 [...] Clarity Clear, Urine pH 8.0, Ur Specific [place] 1.010, Urine Protein 15 H, Urine Glucose [...] 74.9 H, Lymph % (Auto) 15.4 L, Turner % (Auto) 7.7, Eos % (Auto) 0.4, [...] with compressive atelectasis. Reading Location: [facility] Assessment & Plan Assessment/Plan (1) [...] need ALBERT and probable referral to a [facility] - Outpatient follow-up here with cardiology after [...] Had thoracic dissection and was treated at [facility] History of heroin abuse - Remote [...] Full code Charges/Coding Visit Charges Inpatient E&M: 86391 Init Hosp L2 07/11/24 1524 <Electronically signed by Melonie Rj DO> Cosigner Signature (if applicable): CC: ALAN Wagner; Dr. Melonie De La Rosa, ~ Signed [facility] Work Phone: History and physical note Author Jacky Vila [facility] Note Date/Time August 29, 2024 12:3 3am [facility] Medical Records Department [address] [place] [address] History & Physical Exam 08/29/24 0019 MR#: [id number] Acct: [id number] Name: ANALILIA MELENDREZ Rep #:[id number] : 1960 64 From: Jacky Vila MD [...] of anemia, ascites and alcohol abuse, pancreatitis, MA, diabetes, aortic valve replaced with a bovine [...] will be admitted here in the hospital. [facility] Medical History Malnutrition Pancytopenia Medically noncompliant [...] #60 tabs 08/03/24 Unknown Rx tablet (Entresto) hjysqg-eikhibqr-eyclaqc 1 cap PO BIDCM 08/29/24 Unkn own [...] % (Auto) 68.3, Lymph % (Auto) 21.3, Turner % (Auto) 7.6, Eos % (Auto) 1.4, [...] Clarity Clear, Urine pH 7.0, Ur Specific [place] 1.010, Urine Protein Negative, Urine Glucose (UA) [...] pneumonia. 2. Bilateral pleural effusions. Reading Location: [facility] Assessment & Plan Assessment/Plan (1) Medically noncompliant: [...] the a.m. Charges/Coding Visit Charges Inpatient E&M: 83383 Init Hosp L2 08/29/24 0033 <Electronically signed by Jacky [place] MD> Cosigner Signature (if applicable): CC: Dr. Jacky Vila MD; Sigrid Call DO~ Signed [facility] Work Phone: History and physical note Author Diana Willoughby [facility] Note Date/Time October 12, 2024 4:20pm [facility] Medical Records Department [address] [place] [address] H&P Exam - Hospitalist 10/12/24 1609 MR#: [id number] Acct: [id number] Name: ANALILIA MELENDREZ Rep #:[id number] : 1960 64 From: Diana Willoughby MD PCP: Sigrid Call DO Status:ADM IN Location: [facility] [id number]- 1 HPI - General General Date of Admission: 10/12/24 Date of Service: 10/12/24 Chief Complaint: Shortness of breath HPI Narrative ANALILIA MELENDREZ, is a 64-year-old male with a history of alcohol abuse, chronic pancreatitis, AAA, sick sinus syndrome status post PPM, GERD, CHF, diabetes, chronic hypoxic respiratory failure, history of para and thoracentesis who presented to [facility] ED 11/02 with complaints of shortness ofbreath and increased swelling in lower extremities that is worsened over the past several days and has not missed any doses. In the ED temp 97.2, heart [id number] with blood pressure 142/102, respiratory rate 29 [...] shortnessof breath, no bowel or bladder changes [facility] Medical History Chronic pancreatitis Chronic pancreatitis [...] #60 tabs 08/03/24 Unknown Rx tablet (Entresto) [id number] 1 cap PO BIDCM 08/29/24 Unkn own [...] % (Auto) 65.8, Lymph % (Auto) 20.8, Turner % (Auto) 9.5, Eos % (Auto) 1.5, [...] 105 H* [place], [place] [id number] H 10/12/24 12:08: Troponin T Hi Sens 2 Hr 91 H* 10/12/24 14:18: Troponin T Hi Sens 4Hr 83 H* Imaging Radiology Impression Chest X-Ray 10/12/24 10:15 IMPRESSION: Bilateral pleural effusions right greater than left as described with bibasilar compressive atelectasis. Reading Location: [id number] Abdomen/Pelvis CT 10/12/24 13:10 IMPRESSION: Bilateral pleural effusions right greater than left with dependent bibasilar atelectasis. Diffuse pancreatic calcification in keeping with chronic pancreatitis. Pancreatic atrophy. Fatty infiltration of the liver. Stable aneurysmal dilatation of the ascending thoracic aorta. Small umbilical hernia containing fat. [id number] Assessment & Plan Assessment/Plan (1) Acute exacerbation [...] Diana Willoughby MD; Sigrid Call DO~ Signed [facility] Work Phone: Hospital course Narrative No data available for this section [facility] Hospital Discharge instructions No data available for this section [facility] Work Phone: Hospital Discharge instructionsWAv[facility] Work Phone: Hospital Dis[facility] instructionsWA[facility] Work Phone: Hospital Discharge instructions Additional Instructions Plenty of fluids and rest. Probably suggest stopping smoking and decreasing your alcohol use. Zofran as needed for nausea. Call and follow-up with your GI doctor soon as possible. If increasing pain, fever, intractable vomiting or feeling worse.[facility] Work Phone: Hospital Discharge instructionsAdditional Instructions You [...] If symptoms worsen come back to the ER.[facility] Work Phone: Progress note No data available for this section [facility] Reason for referral (narrative)* Outpatient Procedure (Routine) - New Request Specialty Diagnoses / Procedures Referred By Jonathan t Referred To Contact [facility] Diagnoses Anemia, unspecified type Weight loss Chronic pancreatitis, unspecified pancreatitis type (HCC) Epigastric pain Procedures EGD DIAGNOSTIC EGD DIAGNOSTIC ESOPHAGOGASTRODUODENOSCO PY TRANSORAL DIAGNOSTIC Susana Ramirez APRN.ACCOUNT SUPPORT ASSOCIATE [address] [place] [address] [facility] [address] [place] [address] Referral ID Status Reason Start Date Expiration Date Visits Requested Visits Authorized [id number] New Request Auto-Generat ed Referral 4 12/23/2024 1 1 * Outpatient Procedure (Routine) - New Request Specialty Diagnoses / Procedures Referred By Jonathan moreira Referred To Contact [facility] Diagnoses Anemia, unspecified type Weight loss Procedures COLONOSCOPY DIAGNOSTIC COLONOSCOPY DIAGNOSTIC COLONOSCOPY FLX DX W/COLLJ SPEC WHEN PFRMD Susana Ramirez APRN.ACCOUNT SUPPORT ASSOCIATE [address] [place] [address] [facility] [address] [place] [address] Referral ID Status Reason Start Date Expiration Date Visits Requested Visits Authorized [id number] New Request Auto-Generat ed Referral 12/23/2024 1 1 [facility]No reason for referral information availableWAvita [facility] Work Phone: Reason for visit Narrative* Outpatient Procedure (Routine) - Closed Specialty Diagnoses / Procedures Referred By Jonathan moreira Referred To Contact [facility] Diagnoses Anemia, unspecified type Weight loss Chronic pancreatitis, unspecified pancreatitis type (HCC) Epigastric pain Procedures EGD DIAGNOSTIC EGD DIAGNOSTIC EGD DIAGNOSTIC ESOPHAGOGASTRODUODENOSCO PY TRANSORAL DIAGNOSTIC Susana Ramirez APRN.ACCOUNT SUPPORT ASSOCIATE [address] [place] [address] Phone: tel: fax: [facility] [address] [place] [id number] Referral ID Status Reason Start Date Expiration Date V isits Requested Visits Authorized [id number] Closed Auto-Generate d Referral 12/24/2023 12/23/2024 1 1 [facility] Summary Purpose Family History No Family History Records Found Relationship Condition Age at Onset Recorded Date/T kaila father Coronary artery disease Unknown mother Dementia Unknown Advance Directives No Advanced Directives Records Found Advance Directive Response Recorded Date/ Time Advance Directives No January 09, 2017 2:00pm Living Will No May 04, 2021 1:22pm Power of Supervisor Hand Silvering No May 04 1:22pm Advance Directive Response Recorded Date/ Time Advance Directives No January 09, 2017 2:00pm Living Will No May 04, 2021 3:44pm Power of Supervisor Hand Silvering No May 04 3:44pm Advance Directive Response Recorded Date/ Time Advance Directives No January 09, 2017 2:00pm Living Will No May 29, 2021 7:13pm Power of Supervisor Hand Silvering No May 29 7:13pm Advance Directive Response Recorded Date/ Time Advance Directives No January 09, 2017 2:00pm Living Will No May 29, 2021 10:10pm Power of Supervisor Hand Silvering No May 29 10:10pm Advance Directive Response Recorded Date/ Time Advance Directives No January 09, 2017 2:00pm Living Will No September 30 2:09pm Power of Supervisor Hand Silvering No September 30 022 2:09pm Advance Directive Response Recorded Date/ Time Advance Directives No January 09, 2017 2:00pm Living Will No October 06 12:26pm Power of Supervisor Hand Silvering No October 06 022 12:26pm Advance Directive Response Recorded Date/ Time Name of Medical Power of Supervisor Hand Silvering TERRA MELENDREZ November 05, 2021 7:17pm Advance Directives No January 09, 2017 2:00pm Living Will Yes November 05, 2021 7:17pm Power of Supervisor Hand Silvering Yes October 7:17pm Advance Directive Response Recorded Date/ Time Name of Medical Power of Supervisor Hand Silvering TRERA MELENDREZ November 05, 2021 6:17pm Name of Medical Power of Supervisor Hand Silvering Terra Aneesh November 11, 2021 3:27pm Name of Medical Power of Supervisor Hand Silvering potayla, daughter February 01, 2022 7:05pm Advance Directives No January 09, 2017 1:00pm Living Will Yes February 01, 2 022 7:05pm Power of Supervisor Hand Silvering Yes February 01, 2022 7:05pm Advance Directive Response Recorded Date/ Time Name of Medical Power of Supervisor Hand Silvering TERRAIVAN MELENDREZ November 05, 2021 6:17pm Name of Medical Power of Supervisor Hand Silvering Terra Melendrez November 11, 2021 3:27pm Name of Medical Power of Supervisor Hand Silvering dgtr February 01, 2022 9:39pm Advance Directives No January 09, 2017 1:00pm Living Will Yes February 01, 2 022 9:39pm Power of Supervisor Hand Silvering Yes February 01, 2022 9:39pm Advance Directive Response Recorded Date/ Time Name of Medical Power of Supervisor Hand Silvering dgtr February 01, 2022 9:39pm Advance Directives No January 09, 2017 1:00pm Living Will No March 21 023 6:13pm Power of Supervisor Hand Silvering No March 21, 2022 6:13pm Advance Directive Response Recorded Date/ Time Name of Medical Power of Supervisor Hand Silvering dgtr February 01, 2022 9:39pm Name of Medical Power of Supervisor Hand Silvering pt unsure March 21, 2022 7:51pm Advance Directives No January 09, 2017 1:00pm Living Will Yes March 21, 023 7:51pm Power of Supervisor Hand Silvering Yes March 21, 2022 7:51pm Advance Directive Response Recorded Date/ Time Advance Directives No January 09, 2017 2:00pm Living Will No November 01, 2022 8:05pm Power of Supervisor Hand Silvering No October 8:05pm Advance Directive Response Recorded Date/ Time Advance Directives No January 09, 2017 2:00pm Living Will No April 20, 2023 11:35am Power of Supervisor Hand Silvering No April 19 11:35am Advance Directive Response Recorded Date/ Time Advance Directives No January 09, 2017 2:00pm Living Will No April 20, 2023 5:00pm Power of Supervisor Hand Silvering No April 19 5:00pm Advance Directive Response Recorded Date/ Time Advance Directives No January 09, 2017 2:00pm Living Will No May 09, 2023 1:46pm Power of Supervisor Hand Silvering No May 08 1:46pm Advance Directive Response Recorded Date/ Time Advance Directives No January 09, 2017 2:00pm Living Will No May 09, 2023 10:12pm Power of Supervisor Hand Silvering No May 08 10:12pm Advance Directive Response Recorded Date/ Time Do you have a Healthcare Power of Supervisor Hand Silvering? Yes June 25, 2024 4:17pm Advance Directives No January 09, 2017 2:00pm Advance Directive Response Recorded Date/ Time Do you have a Healthcare Power of Supervisor Hand Silvering? Yes June 26, 2024 12:18am Advance Directives No January 09, 2017 2:00pm Advance Directive Response Recorded Date/ Time Do you have a Healthcare Power of Supervisor Hand Silvering? Yes June 26, 2024 12:18am Do you have a Healthcare Power of Supervisor Hand Silvering? Yes June 30, 2024 8:46pm Advance Directives No January 09, 2017 2:00pm Advance Directive Response Recorded Date/ Time Do you have a Healthcare Power of Supervisor Hand Silvering? Yes June 26, 2024 12:18am Do you have a Healthcare Power of Supervisor Hand Silvering? Yes June 30, 2024 8:46pm Do you have a Healthcare Power of Supervisor Hand Silvering? No July 11, 2024 4:12pm Advance Directives No January 09, 2017 2:00pm Advance Directive Response Recorded Date/ Time Do you have a Healthcare Power of Supervisor Hand Silvering? Yes June 26, 2024 12:18am Do you have a Healthcare Power of Supervisor Hand Silvering? Yes June 30, 2024 8:46pm Do you have a Healthcare Power of Supervisor Hand Silvering? No July 11, 2024 11:40am Advance Directives No January 09, 2017 2:00pm Advance Directive Response Recorded Date/ Time Do you have a Healthcare Power of Supervisor Hand Silvering? Yes June 26, 2024 12:18am Do you have a Healthcare Power of Supervisor Hand Silvering? Yes June 30, 2024 8:46pm Do you have a Healthcare Power of Supervisor Hand Silvering? No July 11, 2024 4:12pm Do you have a Healthcare Power of Supervisor Hand Silvering? Yes August 01, 2024 2:20pm Advance Directives No January 09, 2017 2:00pm Advance Directive Response Recorded Date/ Time Do you have a Healthcare Power of Supervisor Hand Silvering? Yes June 26, 2024 12:18am Do you have a Healthcare Power of Supervisor Hand Silvering? Yes June 30, 2024 8:46pm Do you have a Healthcare Power of Supervisor Hand Silvering? No July 11, 2024 4:12pm Do you have a Healthcare Power of Supervisor Hand Silvering? No August 01, 2024 10:05pm Advance Directives No January 09, 2017 2:00pm Advance Directive Response Recorded Date/ Time Do you have a Healthcare Power of Supervisor Hand Silvering? Yes June 26, 2024 12:18am Do you have a Healthcare Power of Supervisor Hand Silvering? Yes June 30, 2024 8:46pm Do you have a Healthcare Power of Supervisor Hand Silvering? No July 11, 2024 4:12pm Do you have a Healthcare Power of Supervisor Hand Silvering? No August 01, 2024 10:05pm Do you have a Healthcare Power of Supervisor Hand Silvering? No August 28, 2024 5:50pm Advance Directives No January 09, 2017 2:00pm Advance Directive Response Recorded Date/ Time Do you have a Healthcare Power of Supervisor Hand Silvering? Yes June 26, 2024 12:18am Do you have a Healthcare Power of Supervisor Hand Silvering? Yes June 30, 2024 8:46pm Do you have a Healthcare Power of Supervisor Hand Silvering? No July 11, 2024 4:12pm Do you have a Healthcare Power of Supervisor Hand Silvering? No August 01, 2024 10:05pm Do you have a Healthcare Power of Supervisor Hand Silvering? No August 29, 2024 1:25am Advance Directives No January 09, 2017 2:00pm Advance Directive Response Recorded Date/ Time Do you have a Healthcare Power of Supervisor Hand Silvering? Yes June 26, 2024 12:18am Do you have a Healthcare Power of Supervisor Hand Silvering? Yes June 30, 2024 8:46pm Do you have a Healthcare Power of Supervisor Hand Silvering? No July 11, 2024 4:12pm Do you have a Healthcare Power of Supervisor Hand Silvering? No August 01, 2024 10:05pm Do you have a Healthcare Power of Supervisor Hand Silvering? No August 29, 2024 1:25am Do you have a Healthcare Power of Supervisor Hand Silvering? Yes October 06, 2024 12:41pm Advance Directives No January 09, 2017 2:00pm Advance Directive Response Recorded Date/ Time Do you have a Healthcare Power of Supervisor Hand Silvering? Yes June 26, 2024 12:18am Do you have a Healthcare Power of Supervisor Hand Silvering? Yes June 30, 2024 8:46pm Do you have a Healthcare Power of Supervisor Hand Silvering? No July 11, 2024 4:12pm Do you have a Healthcare Power of Supervisor Hand Silvering? No August 01, 2024 10:05pm Do you have a Healthcare Power of Supervisor Hand Silvering? No August 29, 2024 1:25am Do you have a Healthcare Power of Supervisor Hand Silvering? Yes October 06, 2024 12:41pm Do you have a Healthcare Power of Supervisor Hand Silvering? No October 12, 2024 9:52am Advance Directives [...] W IVCON CT ABDOMEN W/CONTRAST Marianna Wagner, LOCAL AREA NETWORK ADMINISTRATOR.ACCOUNT SUPPORT ASSOCIATE [address] [place] [address] [place] [address] Referral ID Status Reason Start Date Expiration Date Visits Requested Visits Authorized [id number] New Request Auto-Generat ed Referral 11/08/2023 12/06/2024 1 1 Specialty Diagnoses / Procedures Referred By Contbelle t Referred To Contact Hematology / [facility] Diagnoses 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) Medically complex patient Anemia, unspecified type Procedures CONSULT TO HEMATOLOGY OFFICE/OUTPATIENT [facility] 60 MINUTES Marianna Wagner, LOCAL AREA NETWORK ADMINISTRATOR.ACCOUNT SUPPORT ASSOCIATE [address] [place] [address] Jacky Sebastian DO [address] [place] [address] Referral ID Status Reason Start Date Expiration Date Visits Requested Visits Authorized [id number] Authorized PCP Requested Referral 10/17/2023 10/16/2024 1 1 Specialty Diagnoses / Procedures Referred By Contac t Referred To Contact CT IMAGING Diagnoses Generalized abdominal pain Diarrhea of presumed infectious origin Weight loss Alcohol-induced chronic pancreatitis (HCC) Procedures CT ABD/PEL WO IVCON CT ABD/PEL WO IVCON CT ABD & PELVIS W/O CONTRAST Marianna Wagner, LOCAL AREA NETWORK ADMINISTRATOR.ACCOUNT SUPPORT ASSOCIATE [address] [place] [address] [place] [address] Referral ID Status Reason Start Date Expiration Date Visits Requested Visits Authorized [id number] New Request Auto-Generat ed Referral 10/14/2023 11/12/2024 1 1 Specialty Diagnoses / Procedures Referred By Contac t Referred To Contact Gastroenterology Diagnoses Diarrhea of presumed infectious origin Generalized abdominal pain Procedures CONSULT TO GASTROENTEROLOGY OFFICE/OUTPATIENT [facility] 60 MINUTES Marianna Wagner, LOCAL AREA NETWORK ADMINISTRATOR.ACCOUNT SUPPORT ASSOCIATE [address] [place] [address] Referral ID Status Reason Start Date Expiration Date Visits Requested Visits Authorized [id number] Authorized PCP Requested Referral 09/24/2023 09/23/2024 1 1 Specialty Diagnoses / Procedures Referred By Contac t Referred To Contact [facility] Diagnoses Chronic diarrhea Weight loss Procedures CONSULT TO GASTROENTEROLOGY OFFICE/OUTPATIENT [facility] 60 MINUTES Marianna Wagner, LOCAL AREA NETWORK ADMINISTRATOR.ACCOUNT SUPPORT ASSOCIATE [address] [place] [address] [facility] GASTROENTEROLOGY [address] [place] [address] Referral ID Status Reason Start Date Expiration Date Visits Requested Visits Authorized [id number] Authorized PCP Requested Referral 08/09/2023 08/08/2024 1 1 Specialty Diagnoses / Procedures Referred By Jonathan moreira Referred To Contact [facility] Diagnoses Type 2 diabetes mellitus with complication, with long-term current use of insulin (HCC) Weight loss Procedures CONSULT TO ENDOCRINOLOGY OFFICE/OUTPATIENT NEW [facility] 60 MINUTES Marianna Wagner APRN.ACCOUNT SUPPORT ASSOCIATE [address] [place] [address] Kell Richmond MD [address] [place] [address] Referral ID Status Reason Start Date Expiration Date Visits Requested Visits Authorized [id number] Authorized PCP Requested Referral 08/09/2023 08/08/2024 1 1 Additional Source Comments (unrecognized sect ion and content) No Status Records FoundNo Status Records FoundNo Status Records FoundNo Status Records FoundNo Status Records FoundNo Status Records FoundNo Status Records FoundNo Status Records FoundNo Status Records FoundNo Status Records Found INFORMATION SOURCE (unrecogn ized section and content) DATE CREATED AUTHOR 12/12/2017 [facility] DATE CREATED AUTHOR AUTHOR'S ORGANIZ ATION 04/08/2018 [facility] DATE CREATED AUTHOR AUTHOR'S ORGANIZ ATION 04/09/2023 [facility] DATE CREATED AUTHOR AUTHOR'S ORGANIZ ATION 03/24/2024 [facility] DATE CREATED AUTHOR AUTHOR'S ORGANIZ ATION 04/07/2024 [facility] DATE CREATED AUTHOR AUTHOR'S ORGANIZ ATION 07/18/2024 [facility] DATE CREATED AUTHOR AUTHOR'S ORGANIZ ATION 09/18/2024 [facility] DATE CREATED AUTHOR AUTHOR'S ORGANIZ ATION 12/09/2024 [facility] DATE CREATED AUTHOR AUTHOR'S ORGANIZ ATION 12/10/2024 [facility] DATE CREATED AUTHOR AUTHOR'S ORGANIZ ATION 12/21/2024 [facility] Goals (unrecognized section and content) Goals may be documented in a n alternate section Care Team (unrecognized sect ion and content) Care Team Personnel Name: ZOANDREAS TOWNSEND Viola LOCAL AREA NETWORK ADMINISTRATOR - ACCOUNT SUPPORT ASSOCIATE 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: Employed Provider Member Role: Primary Care Physician Address: Address: [address] [place], [place] [address] Care Team Related Persons Name: NARENDRA MELENDREZ Name: DARRINTERRA VERNON Care Teams (unrecognized sec tion and content) Team Status: Active Member Role Status Dates Marianna Wagner BUCKET TURNER, BUCKET TURNER-C Primary Care Provider Active Team Status: Inactive [...] 2024 End: June 28, 2024 Marianna Wagner BUCKET TURNER, BUCKET TURNER-C Primary Care Provider Active Start: June 25, [...] e Start: June 26, 2024 Marianna Wagner BUCKET TURNER, BUCKET TURNER-C Primary Care Provider Active Start: June 26, [...] e Start: June 26, 2024 Marianna Wagner BUCKET TURNER, BUCKET TURNER-C Primary Care Provider Active Start: June 26, [...] e Start: June 27, 2024 Mariannamandy Wagner BUCKET TURNER, BUCKET TURNER-C Primary Care Provider Active Start: June 27, [...] e Start: June 27, 2024 Marianna Quedevyn BUCKET TURNER, BUCKET TURNER-C Primary Care Provider Active Start: June 27, [...] e Start: June 28, 2024 Marianna Queden BUCKET TURNER, BUCKET TURNER-C Primary Care Provider Active Start: June 28, [...] e Start: June 28, 2024 Marianna Wagner BUCKET TURNER, BUCKET TURNER-C Primary Care Provider Active Start: June 28, [...] Active Member Role Status Dates Marianna Wagner BUCKET TURNER, BUCKET TURNER-C Primary Care Provider Active Start: June 30, [...] Inactive Member Role Status Dates Marianna Wagner BUCKET TURNER, BUCKET TURNER-C Primary Care Provider Active Start: June 30, [...] Active Member Role Status Dates Marianna Wagner BUCKET TURNER, BUCKET TURNER-C Primary Care Provider Active Start: July 01, [...] Active Member Role Status Dates Marianna Wagner BUCKET TURNER, BUCKET TURNER-C Primary Care Provider Active Start: July 02, [...] Active Member Role Status Dates Marianna Wagner BUCKET TURNER, BUCKET TURNER-C Primary Care Provider Active Start: July 03, [...] Active Member Role Status Dates Marianna Wagner BUCKET TURNER, BUCKET TURNER-C Primary Care Provider Active Start: July 03, 2024 Dr. Yaneli Carbone MD Attending Provider Active Start: July 03, 2024 Team Status: Active Member Role Status Dates Marianna Fátima BUCKET TURNER, BUCKET TURNER-C Primary Care Provider Active Start: July 03, [...] Active Member Role Status Dates Marianna Fátima BUCKET TURNER, BUCKET TURNER-C Primary Care Provider Active Start: July 04, [...] Active Member Role Status Dates Marianna Fátima BUCKET TURNER, BUCKET TURNER-C Primary Care Provider Active Start: July 04, [...] Active Member Role Status Dates Marianna Wagner BUCKET TURNER, BUCKET TURNER-C Primary Care Provider Active Start: July 04, 2024 Dr. Narendra Gonzalez , DO Emergency Provider Active Start: July 04, 2024 Dr. Conrado Pro , DO Admit Provider Active Start: July 04, 2024 Dr. Conrado Pro , DO Referring Provider Active Start: July 04, 2024 Dr. oCnrado Pro , DO Other Provider Active Start: [...] Active Member Role Status Dates Marianna Wagner BUCKET TURNER, BUCKET TURNER-C Primary Care Provider Active Start: July 05, [...] Active Member Role Status Dates Marianna Wagner BUCKET TURNER, BUCKET TURNER-C Primary Care Provider Active Start: July 06, [...] Active Member Role Status Dates Marianna Wagner BUCKET TURNER, BUCKET TURNER-C Primary Care Provider Active Start: July 11, 2024 Dr. Perez Ribeiro , Emergency Provider Active Start: July 11, 2024 Dr. Melonie De La Rosa , DO Attending Provider Active S tart: July 11, 2024 Team Status: Active Member Role Status Dates Marianna Wagner BUCKET TURNER, BUCKET TURNER-C Primary Care Provider Active Start: July 11, [...] Active Member Role Status Dates Marianna Wagner BUCKET TURNER, BUCKET TURNER-C Primary Care Provider Active Start: July 12, [...] Active Member Role Status Dates Marianna Wagner BUCKET TURNER, BUCKET TURNER-C Primary Care Provider Active Start: July 12, [...] Active Member Role Status Dates Marianna Wagner BUCKET TURNER, BUCKET TURNER-C Primary Care Provider Active Start: July 13, [...] Active Member Role Status Dates Marianna Wagner BUCKET TURNER, BUCKET TURNER-C Primary Care Provider Active Start: July 13, [...] Star t: July 14, 2024 Sigrid Call [facility], DO Primary Care Provider Active Start: July 14, 2024 Team Status: Active Member Role Status Dates Andreas Pathak BUCKET TURNER, BUCKET TURNER-C Family Provider Activ e Andreas Pathak BUCKET TURNER, BUCKET TURNER-C Primary Care Provider Active Team Status: Active Member Role Status Dates Andreas Pathak BUCKET TURNER, BUCKET TURNER-C Primary Care Provider Active Dr. Vinh Lomeli MD Emergency Provider Active Dr. Iman Aguayo MD Admit Provider, Other Provider Active Dr. Conrado Morel MD Attending Provider, Other Provid er Active Team Status: Active Member Role Status Dates Andreas Pathak BUCKET TURNER, BUCKET TURNER-C Primary Care Provider Active Dr. Vinh Lomeli MD Emergency Provider Active Dr. Iman Aguayo MD Admit Provider, Other Provider Active Dr. Mateusz Dutton DO Attending Provider, Other Pro vider Active Dr. Conrado Morel MD Other Provider Active Team Status: Active Member Role Status Dates Andreas Pathak BUCKET TURNER, BUCKET TURNER-C Primary Care Provider Active Dr. Vinh Lomeli MD Emergency Provider Active Dr. Ashley Alvarado MD Admit Provider, Other Provider Active Dr. Iman Aguayo MD Attending Provider Active Team Status: Inactive Member Role Status Dates Andreas Pathak BUCKET TURNER, BUCKET TURNER-C Primary Care Provider Active Dr. Vinh Lomeli MD Emergency Provider Active Dr. Iman Aguayo MD Admit Provider, Other Provider Active Dr. Mateusz Dutton DO Attending Provider Active Dr. Conrado Morel MD Other Provider Active Team Status: Active Member Role Status Dates Andreas Pathak BUCKET TURNER, BUCKET TURNER-C Primary Care Provider Active Dr. Vinh oLmeli MD Emergency Provider Active Dr. Iman Aguayo MD Admit Provider, Attending Prov ider Active Team Status: Active Member Role Status Dates Andreas Pathak BUCKET TURNER, BUCKET TURNER-C Primary Care Provider Active Dr. Vinh Lomeli MD Emergency Provider Active Dr. Iman Aguayo MD Admit Provider, Other Provider Active Dr. Mateusz Dutton , DO Attending Provider, Other Pro vider Active Team Status: Inactive Member Role Status Dates Andreas Pathak BUCKET TURNER, BUCKET TURNER-C Primary Care Provider Active Dr. Vinh Lomeli MD Emergency Provider Active Dr. Iman Aguayo MD Admit Provider, Other Provider Active Dr. Mateusz Dutton , DO Attending Provider Active Team Status: Inactive Member Role Status Dates Andreas Pathak BUCKET TURNER, BUCKET TURNER-C Primary Care Provider Active Dr. Sinan Abarca , Attending Provider, Emergency Provider Active Team Status: Inactive Member Role Status Dates Andreas Pathak BUCKET TURNER, BUCKET TURNER-C Primary Care Provider Active Dr. Vinh Lomeli MD Emergency Provider Active Team Status: Inactive Member Role Status Dates Andreas Pathak BUCKET TURNER, BUCKET TURNER-C Primary Care Provider Active Dr. Trung Bob MD Attending Provider Active Team Status: Active Member Role Status Dates Andreas Pathak BUCKET TURNER, BUCKET TURNER-C Primary Care Provider Active Dr. Chris Call DO Emergency Provider Active Dr. Lucas Frausto MD Admit Provider, Attending Provider Active Team Status: Active Member Role Status Dates Andreas Pathak BUCKET TURNER, BUCKET TURNER-C Primary Care Provider Active Dr. Chris Call DO Emergency Provider Active Dr. Lucas Frausto MD Admit Provi mary lou, Attending Provider, Other Provider Active Team Status: Active Member Role Status Dates Andreas Pathak BUCKET TURNER, BUCKET TURNER-C Primary Care Provider Active Dr. Chris Call DO Emergency Provider Active Dr. Lucas Frausto MD Admit Provider, Other Pro vider Active Dr. Ashley Alvarado MD Attending Provider, Other Prov ider Active Team Status: Inactive Member Role Status Dates Andreas Pathak BUCKET TURNER, BUCKET TURNER-C Primary Care Provider Active Dr. Chris Call , DO Emergency Provider Active Dr. Lucas Frausto MD Admit Provider, Other Pro vider Active Dr. Ashley Alvarado MD Attending Provider Active Team Status: Active Member Role Status Dates Andreas Pathak BUCKET TURNER, BUCKET TURNER-C Primary Care Provider Active Dr. Carlos Augustin MD Emergency Provider Active Dr. Conrado Pro DO Admit Provider, Attending Pr ovider Active Team Status: Active Member Role Status Dates Andreas Pathak BUCKET TURNER, BUCKET TURNER-C Primary Care Provider Active Dr. Carlos Augustin [...] Active Member Role Status Dates Andreas Pathak BUCKET TURNER, BUCKET TURNER-C Primary Care Provider Active Dr. Carlos Augustin [...] Active Member Role Status Cam Pathak NP, BUCKET TURNER-C Primary Care Provider Active Dr. Carlos Augustin [...] Active Member Role Status Dates Andreas Pathak BUCKET TURNER, BUCKET TURNER-C Primary Care Provider Active Dr. Carlos Augustin MD Emergency Provider Active Dr. Conrado Pro DO Admit Provider, Other Provid er Active Dr. Conrado Morel MD Referring Provider, Other Provid er Active Dr. Barry Sheehan DO Attending Provider Active Team Status: Active Member Role Status Dates Andreas Pathak BUCKET TURNER, BUCKET TURNER-C Primary Care Provider Active Dr. Carlos Augustin MD Emergency Provider Active Dr. Conrado Pro DO Admit Provider, Other Provid er Active Dr. Conrado Morel MD Attending Provider, Other Provid er Active Dr. Maya Melo MD Other Provider Active Team Status: Active Member Role Status Dates Andreas Pathak BUCKET TURNER, BUCKET TURNER-C Primary Care Provider Active Dr. Carlos Augustin MD Emergency Provider Active Dr. Conrado Pro DO Admit Provider, Other Provid er Active Dr. Maya Melo MD Other Provider Active Dr. Refugio Rojas MD Attending Provider, Other Provi mary lou Active Dr. Conrado Morel MD Other Provider Active Team Status: Inactive Member Role Status Dates Andreas Pathak BUCKET TURNER, BUCKET TURNER-C Primary Care Provider Active Dr. Carlos Augustin MD Emergency Provider Active Dr. Conrado Pro DO Admit Provider, Other Provid er Active Dr. Maya Melo MD Other Provider Active Dr. Refugio Rojas MD Attending Provider Active Dr. Conrado Morel MD Other Provider Active Government Operations Consultant Relationship Specialty Start Date End Date Marianna Wagner, LOCAL AREA NETWORK ADMINISTRATOR.ACCOUNT SUPPORT ASSOCIATE [address] [facility], [place] [id number] PCP - General Family Medicine 08/09/23 Trung Bob MD [address] [place], [place] [id number] Physician Cardiology 06/10/18 Government Operations Consultant Relationship Specialty Start Date End Date Marianna Wagner, LOCAL AREA NETWORK ADMINISTRATOR.ACCOUNT SUPPORT ASSOCIATE [address] [facility], [place] [id number] PCP - General Family Medicine 08/09/23 Trung Bob MD [address] [place], [place] [address] Physician Cardiology 06/10/18 Government Operations Consultant Relationship Specialty Start Date End Date Marianna Wagner, LOCAL AREA NETWORK ADMINISTRATOR.ACCOUNT SUPPORT ASSOCIATE [address] [facility], [place] [id number] PCP - General Family Medicine 08/09/23 Trung Bob MD [address] [place], [place] [id number] Physician Cardiology 06/10/18 Government Operations Consultant Relationship Specialty Start Date End Date Marianna Wagner, LOCAL AREA NETWORK ADMINISTRATOR.ACCOUNT SUPPORT ASSOCIATE [address] [facility], [place] [id number] PCP - General Family Medicine 08/09/23 Trung Bob MD [address] [place], [place] [phone]- Physician Cardiology 06/10/18 Government Operations Consultant Relationship Specialty Start Date End Date Marianna Wagner, LOCAL AREA NETWORK ADMINISTRATOR.ACCOUNT SUPPORT ASSOCIATE [address] [place], [place] [id number] PCP - General Family Medicine 08/09/23 Trung Bob MD [address] [place], [place] [address] Physician Cardiology 06/10/18 Government Operations Consultant Relationship Specialty Start Date End Date Marianna Wagner, LOCAL AREA NETWORK ADMINISTRATOR.ACCOUNT SUPPORT ASSOCIATE [address] [place], [place] [id number] PCP - General Family Medicine 08/09/23 Trung Bob MD [address] [place] [address] Physician Cardiology 06/10/18 Government Operations Consultant Relationship Specialty Start Date End Date Marianna Wagner, LOCAL AREA NETWORK ADMINISTRATOR.ACCOUNT SUPPORT ASSOCIATE [address] [place] [address] PCP - General Family Medicine 08/09/23 Trung Bob MD [address] [place], [place] [address] Physician Cardiology 06/10/18 Government Operations Consultant Relationship Specialty Start Date End Date Marianna Wagner, LOCAL AREA NETWORK ADMINISTRATOR.ACCOUNT SUPPORT ASSOCIATE [address] [place], [place] [id number] PCP - General Family Medicine 08/09/23 Trung Bob MD [address] [address]- Physician Cardiology 06/10/18 Government Operations Consultant Relationship Specialty Start Date End Date Marianna Wagner, LOCAL AREA NETWORK ADMINISTRATOR.ACCOUNT SUPPORT ASSOCIATE [address] [facility] [place] [id number] PCP - General Family Medicine 08/09/23 Trung Bob MD [address] [address] Physician Cardiology 06/10/18 Government Operations Consultant Relationship Specialty Start Date End Date Marianna Wagner, LOCAL AREA NETWORK ADMINISTRATOR.ACCOUNT SUPPORT ASSOCIATE [address] [place] [place] [address] PCP - General Family Medicine 08/09/23 Trung Bob MD [address] [address] Physician Cardiology 06/10/18 Government Operations Consultant Relationship Specialty Start Date End Date Marianna Wagner, LOCAL AREA NETWORK ADMINISTRATOR.ACCOUNT SUPPORT ASSOCIATE [address] [place] [place] [address] PCP - General Family Medicine 08/09/23 Trung Bob MD [address] [address] Physician Cardiology 06/10/18 Government Operations Consultant Relationship Specialty Start Date End Date Marianna Wagner LOCAL AREA NETWORK ADMINISTRATOR.ACCOUNT SUPPORT ASSOCIATE [address] [facility], [place] [id number] PCP - General Family Medicine 08/09/23 Trung Bob MD [address] [place], [place] [address] Physician Cardiology 06/10/18 Government Operations Consultant Relationship Specialty Start Date End Date Marianna Wagner LOCAL AREA NETWORK ADMINISTRATOR.ACCOUNT SUPPORT ASSOCIATE [address] [facility], [place] [id number] PCP - General Family Medicine 08/09/23 Trung Bob MD [address] [place], [place] [address] Physician Cardiology 06/10/18 Government Operations Consultant Relationship Specialty Start Date End Date Marianna Wagner, LOCAL AREA NETWORK ADMINISTRATOR.ACCOUNT SUPPORT ASSOCIATE [address] [facility] [place] [address] PCP - General Family Medicine 08/09/23 Trung Bob MD [address] [place] [address], [place] [address] Physician Cardiology 06/10/18 Government Operations Consultant Relationship Specialty Start Date End Date Marianna Wagner LOCAL AREA NETWORK ADMINISTRATOR.ACCOUNT SUPPORT ASSOCIATE [address] [facility] [place] [address] PCP - General Family Medicine 08/09/23 Trung Bob MD [address] [place] [address] Physician Cardiology 06/10/18 Government Operations Consultant Relationship Specialty Start Date End Date Marianna Wagner LOCAL AREA NETWORK ADMINISTRATOR.ACCOUNT SUPPORT ASSOCIATE [address] [place], [place] [id number] PCP - General Family Medicine 08/09/23 Trung Bob MD [address] [place] [address] Physician Cardiology 06/10/18 Government Operations Consultant Relationship Specialty Start Date End Date Marianna Wagner LOCAL AREA NETWORK ADMINISTRATOR.ACCOUNT SUPPORT ASSOCIATE [address] [place] [address] PCP - General Family Medicine 08/09/23 Trung Bob MD [address] [address] Physician Cardiology 06/10/18 Government Operations Consultant Relationship Specialty Start Date End Date Marianna Wagner, LOCAL AREA NETWORK ADMINISTRATOR.ACCOUNT SUPPORT ASSOCIATE [address] [place] [address] PCP - General Family Medicine 08/09/23 Trung Bob MD [address] [address] Physician Cardiology 06/10/18 Government Operations Consultant Relationship Specialty Start Date End Date Marianna Wagner, LOCAL AREA NETWORK ADMINISTRATOR.ACCOUNT SUPPORT ASSOCIATE [address] [place] [address] PCP - General Family Medicine 08/09/23 Trung Bob MD [address] [address] Physician Cardiology 06/10/18 Government Operations Consultant Relationship Specialty Start Date End Date Marianna Wagner LOCAL AREA NETWORK ADMINISTRATOR.ACCOUNT SUPPORT ASSOCIATE [address] [place], [place] [id number] PCP - General Family Medicine 08/09/23 Trung Bob MD [address] [place] [address] Physician Cardiology 06/10/18 Government Operations Consultant Relationship Specialty Start Date End Date Marianna Wagner LOCAL AREA NETWORK ADMINISTRATOR.ACCOUNT SUPPORT ASSOCIATE [address] [place] [address] PCP - General Family Medicine 08/09/23 Trung Bob MD [address] [place], [place] [address] Physician Cardiology 06/10/18 Government Operations Consultant Relationship Specialty Start Date End Date Marianna Wagner, LOCAL AREA NETWORK ADMINISTRATOR.ACCOUNT SUPPORT ASSOCIATE [address] [place], [place] [id number] PCP - General Family Medicine 08/09/23 Trung Bob MD [address] [address] Physician Cardiology 06/10/18 Government Operations Consultant Relationship Specialty Start Date End Date Marianna Wagner, LOCAL AREA NETWORK ADMINISTRATOR.ACCOUNT SUPPORT ASSOCIATE [address] [place] [address] PCP - General Family Medicine 08/09/23 Trung Bob MD [address] [address] Physician Cardiology 06/10/18 Government Operations Consultant Relationship Specialty Start Date End Date Marianna Wagner LOCAL AREA NETWORK ADMINISTRATOR.ACCOUNT SUPPORT ASSOCIATE [address] [place], [place] [id number] PCP - General Family Medicine 08/09/23 Trung Bob MD [address] [place], [place] [address] Physician Cardiology 06/10/18 Government Operations Consultant Relationship Specialty Start Date End Date Marianna Wagner, LOCAL AREA NETWORK ADMINISTRATOR.ACCOUNT SUPPORT ASSOCIATE [address] [place] [address] PCP - General Family Medicine 08/09/23 Trung Bob MD [address] [place], [place] [phone] Physician Cardiology 06/10/18 Government Operations Consultant Relationship Specialty Start Date End Date Marianna Wagner, LOCAL AREA NETWORK ADMINISTRATOR.ACCOUNT SUPPORT ASSOCIATE [address] [facility], [place] [id number] PCP - General Family Medicine 08/09/23 Trung Bob MD [address] [place], [place] [phone] Physician Cardiology 06/10/18 Government Operations Consultant Relationship Specialty Start Date End Date Marianna Wagner, LOCAL AREA NETWORK ADMINISTRATOR.ACCOUNT SUPPORT ASSOCIATE [address] [facility] [place] [id number] PCP - General Family Medicine 08/09/23 Trung Bob MD [address] [place], [place] [address] Physician Cardiology 06/10/18 Government Operations Consultant Relationship Specialty Start Date End Date Marianna Wagner, LOCAL AREA NETWORK ADMINISTRATOR.ACCOUNT SUPPORT ASSOCIATE [address] [place] [address] PCP - General Family Medicine 08/09/23 Trung Bob MD [address] [place], [place] [address] Physician Cardiology 06/10/18 Government Operations Consultant Relationship Specialty Start Date End Date Marianna Wagner, LOCAL AREA NETWORK ADMINISTRATOR.ACCOUNT SUPPORT ASSOCIATE [address] [facility] [place] [address] PCP - General Family Medicine 08/09/23 Trung Bob MD [address] [place], [place] [address] Physician Cardiology 06/10/18 Government Operations Consultant Relationship Specialty Start Date End Date Marianna Wagner, LOCAL AREA NETWORK ADMINISTRATOR.ACCOUNT SUPPORT ASSOCIATE [address] [place], [place] [id number] PCP - General Family Medicine 08/09/23 Trung Bob MD [address] [place], [place] [id number] Physician Cardiology 06/10/18 Team Status: Active Member Role Status Dates Dr. Rolan Romero , DO Referring Provider Activ e Start: June 25, 2024 Dr. Rolan Romero , DO Emergency Provider Activ e Start: June 25, 2024 Marianna Wagner BUCKET TURNER, BUCKET TURNER-C Primary Care Provider Active Start: June 25, [...] e Start: June 26, 2024 Marianna Wagner BUCKET TURNER, BUCKET TURNER-C Primary Care Provider Active Start: June 26, [...] e Start: June 27, 2024 Marianna Wagner BUCKET TURNER, BUCKET TURNER-C Primary Care Provider Active Start: June 27, [...] e Start: June 28, 2024 Marianna Wagner BUCKET TURNER, BUCKET TURNER-C Primary Care Provider Active Start: June 28, [...] Active Member Role Status Dates Marianna Wagner BUCKET TURNER, BUCKET TURNER-C Primary Care Provider Active Start: July 02, [...] Active Member Role Status Dates Marianna Wagner BUCKET TURNER, BUCKET TURNER-C Primary Care Provider Active Start: July 03, [...] Active Member Role Status Dates Marianna Wagner BUCKET TURNER, BUCKET TURNER-C Primary Care Provider Active Start: July 04, [...] Active Member Role Status Dates Marianna Wagner BUCKET TURNER, BUCKET TURNER-C Primary Care Provider Active Start: July 05, [...] Active Member Role Status Dates Marianna Wagner BUCKET TURNER, BUCKET TURNER-C Primary Care Provider Active Start: July 06, [...] Provider Active Star t: July 06, 2024 Government Operations Consultant Relationship Specialty Start Date End Date Marianna Wagner APRN.ACCOUNT SUPPORT ASSOCIATE [address] [place] [address] PCP - General Family Medicine 08/09/23 Trung Bob MD [address] [address] Physician Cardiology 06/10/18 Radha Etienne, ELIS Primary Care Animal Tech 07/07/24 Government Operations Consultant Relationship Specialty Start Date End Date Josseline Call DO [address] [place] [address] PCP - General Family Medicine 07/11/24 Trung Bob MD [address] [facility] [address] [address] Physician Cardiology 06/10/18 Radha Etienne, RN Primary Care Animal Tech 07/17/24 07/17/24 Government Operations Consultant Relationship Specialty Start Date End Date Marianna Wagner LOCAL AREA NETWORK ADMINISTRATOR.ACCOUNT SUPPORT ASSOCIATE [address] [place] [address] PCP - General Family Medicine 08/09/23 Trung Bob MD [address] [id number] Physician Cardiology 06/10/18 Radha Etienne, RN Primary Care Animal Tech 07/07/24 Team Status: Inactive Member Role Status Dates [facility] Active Start: July 20, 2024 End: July 20, 2024 Dr. Trung Bob MD Attending Provider Active S tart: July 20, 2024 End: July 20, 2024 Team Status: Active Member Role Status Dates Marianna Wagner BUCKET TURNER, BUCKET TURNER-C Primary Care Provider Active Start: July 12, [...] 01, 2024 End: August 03, 2024 Dr. Imna Aguayo MD Other Provider Active St art: [...] Provider Active Start : August 03, 2024 Government Operations Consultant Relationship Specialty Start Date End Date Josseline Call Fawad, DO [address] [place] [address] PCP - General Family Medicine 07/11/24 Trung Bob MD [address] [address] Physician Cardiology 06/10/18 Government Operations Consultant Relationship Specialty Start Date End Date Josseline Call DO [address] [place] [address] PCP - General Family Medicine 07/11/24 Trung Bob MD [address] [address] Physician Cardiology 06/10/18 Team Status: Active Member Role/Relationship Status Dates Sigrid GARZA, DO Primary Care Provider Active Team Status: Inactive Member Role/Relationship Status Dates Dr. Rolan Klusty-Kai , DO Referring Provider Activ e Start: June 25, 2024 End: June 28, 2024 Dr. Rolan Romero , DO Emergency Provider Activ e Start: June 25, 2024 End: June 28, 2024 Marianna Wagner BUCKET TURNER, BUCKET TURNER-C Primary Care Provider Active Start: June 25, [...] e Start: June 26, 2024 Marianna Wagner BUCKET TURNER, BUCKET TURNER-C Primary Care Provider Active Start: June 26, [...] e Start: June 26, 2024 Marianna Wagner BUCKET TURNER, BUCKET TURNER-C Primary Care Provider Active Start: June 26, [...] e Start: June 27, 2024 Marianna Wagner BUCKET TURNER, BUCKET TURNER-C Primary Care Provider Active Start: June 27, [...] e Start: June 27, 2024 Marianna Wagner BUCKET TURNER, BUCKET TURNER-C Primary Care Provider Active Start: June 27, [...] e Start: June 28, 2024 Marianna Wagner BUCKET TURNER, BUCKET TURNER-C Primary Care Provider Active Start: June 28, [...] e Start: June 28, 2024 Marianna Wagner BUCKET TURNER, BUCKET TURNER-C Primary Care Provider Active Start: June 28, [...] Active Member Role/Relationship Status Dates Marianna Wagner BUCKET TURNER, BUCKET TURNER-C Primary Care Provider Active Start: June 30, [...] Inactive Member Role/Relationship Status Dates Marianna Wagner BUCKET TURNER, BUCKET TURNER-C Primary Care Provider Active Start: June 30, [...] Active Member Role/Relationship Status Dates Marianna Wagner BUCKET TURNER, BUCKET TURNER-C Primary Care Provider Active Start: July 01, [...] Active Member Role/Relationship Status Dates Marianna Fátima BUCKET TURNER, BUCKET TURNER-C Primary Care Provider Active Start: July 02, [...] Active Member Role/Relationship Status Dates Marianna Fátima BUCKET TURNER, BUCKET TURNER-C Primary Care Provider Active Start: July 03, [...] Active Member Role/Relationship Status Dates Marianna Fátima BUCKET TURNER, BUCKET TURNER-C Primary Care Provider Active Start: July 03, 2024 Dr. Yaneli Carbone MD Attending Provider Active Start: July 03, 2024 Team Status: Active Member Role/Relationship Status Dates Marianna Fátima BUCKET TURNER, BUCKET TURNER-C Primary Care Provider Active Start: July 03, [...] Active Member Role/Relationship Status Dates Marianna Wagner BUCKET TURNER, BUCKET TURNER-C Primary Care Provider Active Start: July 04, [...] Provider Active Start: July 04, 2024 Dr. Mleonie De La Rosa , DO Other Provider Active Start : July 04, 2024 Dr. Yaneli Carbone MD Attending Provider Active Start: July 04, 2024 Dr. Yaneli Carbone MD Other Provider Active Star t: July 04, 2024 Team Status: Active Member Role/Relationship Status Dates Marianna Wagner BUCKET TURNER, BUCKET TURNER-C Primary Care Provider Active Start: July 04, 2024 Dr. Narendra Gonzalez , DO Emergency Provider Active Start: July 04, 2024 Dr. Conrado Pro , DO Admit Provider Active Start: July 04, 2024 Dr. Cnorado Pro , DO Other [...] Active Member Role/Relationship Status Dates Marianna Wagner BUCKET TURNER, BUCKET TURNER-C Primary Care Provider Active Start: July 04, [...] Active Member Role/Relationship Status Dates Marianna Wagner BUCKET TURNER, BUCKET TURNER-C Primary Care Provider Active Start: July 05, [...] Active Member Role/Relationship Status Dates Marianna Wagner BUCKET TURNER, BUCKET TURNER-C Primary Care Provider Active Start: July 06, [...] Active Member Role/Relationship Status Dates Marianna Wagner BUCKET TURNER, BUCKET TURNER-C Primary Care Provider Active Start: July 11, [...] 2024 End: July 14, 2024 Sigrid Call [facility], DO Primary Care Provider Active Start: July 11, 2024 End: July 14, 2024 Team Status: Active Member Role/Relationship Status Dates Marianna Wagner BUCKET TURNER, BUCKET TURNER-C Primary Care Provider Active Start: July 12, [...] Active Member Role/Relationship Status Dates Marianna Wagner BUCKET TURNER, BUCKET TURNER-C Primary Care Provider Active Start: July 12, [...] Active Member Role/Relationship Status Dates Marianna Wagner BUCKET TURNER, BUCKET TURNER-C Primary Care Provider Active Start: July 13, [...] Active Member Role/Relationship Status Dates Marianna Wagner BUCKET TURNER, BUCKET TURNER-C Primary Care Provider Active Start: July 13, [...] Inactive Member Role/Relationship Status Dates Sigrid Jakub [facility], DO Primary Care Provider Active Start: August [...] Active Member Role/Relationship Status Dates Sigrid Call [facility], DO Primary Care Provider Active Start: August 30, 2024 Dr. Vinh Lomeli MD Emergency Provider Active S tart: August 30, 2024 Dr. Jacky Vila MD Admit Provider Active Star t: August 30, 2024 Dr. Jakcy Vila MD Other Provider Active Star t: August 30, 2024 Dr. Lucas Frausto MD Attending Provider Active Start: August 30, 2024 Dr. Lucas Frausto MD Other Provider Active Start: August 30, 2024 Team Status: Active Member Role/Relationship Status Dates Sigrid Call [facility], DO Primary Care Provider Active Start: August [...] Active Member Role/Relationship Status Dates Sigrid Call [facility], DO Primary Care Provider Active Start: August [...] Active Member Role/Relationship Status Dates Sigrid Yaner [facility], DO Primary Care Provider Active Start: August [...] Active Member Role/Relationship Status Dates Sigrid Yaner [facility], DO Primary Care Provider Active Start: September [...] Active Member Role/Relationship Status Dates Sigrid Call [facility], Primary Care Provider Active Start: September 01, [...] Active Member Role/Relationship Status Dates Sigrid Call [facility], DO Primary Care Provider Active Start: September [...] Active Member Role/Relationship Status Dates Sigrid Call [facility], DO Primary Care Provider Active Start: September [...] Active Member Role/Relationship Status Dates Sigrid [facility] Provider Active Start: September 02, [...] Active Member Role/Relationship Status Dates Sigrid Call [facility], DO Primary Care Provider Active Start: September 03, 2024 Dr. Vinh Lomeli MD Emergency Provider Active S tart: September 03, 2024 Dr. Jacky Vila MD Admit Provider Active Star t: September 03, 2024 Dr. Jacky Vila MD Other Provider [...] Active Star t: September 03, 2024 Dr. Tnoi Dodge MD Other Provider Active Sta rt: September 03, 2024 Team Status: Active Member Role/Relationship Status Dates Sigrid Call [facility], Primary Care Provider Active Start: September 04, [...] Inactive Member Role/Relationship Status Dates Sigrid Call [facility], DO Primary Care Provider Active Start: October 10, 2024 End: October 10, 2024 [facility] Referring Provider Active Start: October 10, 2024 End: October 10, 2024 Heather Daley [facility], [facility] Attending Provider Active Start: October 10, 2024 End: October 10, 2024 Team Status: Active Member Role/Relationship Status Dates Sigrid Call [facility], DO Primary Care Provider Active Start: October 12, 2024 Dr. Perez Ribeiro DO Emergency Provider Active Start: October 12, 2024 Dr. Diana Willoughby MD Admit Provider Active Star t: October 12, 2024 Dr. Diana Willoughby MD Attending Provider Active Start: October 12, 2024 Dr. Diana Willoughby MD Other Provider Active Star t: October 12, 2024 Government Operations Consultant Relationship Specialty Start Date End Date Josseline Call DO [address] [place] [address] PCP - General Family Medicine 07/11/24 Trung Bob MD [address] [address] Physician Cardiology 06/10/18 Government Operations Consultant Relationship Specialty Start Date End Date Josseline Call DO [address] [place] [address] PCP - General Family Medicine 07/11/24 Trung Bob MD [address] PRAJAPATI [address] [place] [id number] Physician Cardiology 06/10/18 Source Comments (unrecognize d section and content) In the event this informatio n is protected by the Federal Confidentiality of Alcohol and Drug Abuse Patient Records regulations: The Federal rules restrict any use of the information to criminally investigate or prosecute any alcohol or drug abuse patient.[facility] the event this information is protected by the Federal Confidentiality of Alcohol and Drug Abuse Patient Records regulations: The Federal rules restrict any use of the information to criminally investigate or prosecute any alcohol or drug abuse patient.[facility] [place]In the event this information is protected by the Federal Confidentiality of Alcohol and Drug Abuse Patient Records regulations: The Federal rules restrict any use of the information to criminally investigate or prosecute any alcohol or drug abuse patient.[facility] [place]In the event this information is protected by the Federal Confidentiality of Alcohol and Drug Abuse Patient Records regulations: The Federal rules restrict any use of the information to criminally investigate or prosecute any alcohol or drug abuse patient.[facility] [place]In the event this information is protected by the Federal Confidentiality of Alcohol and Drug Abuse Patient Records regulations: The Federal rules restrict any use of the information to criminally investigate or prosecute any alcohol or drug abuse patient.[facility] [place]In the event this information is protected by the Federal Confidentiality of Alcohol and Drug Abuse Patient Records regulations: The Federal rules restrict any use of the information to criminally investigate or prosecute any alcohol or drug abuse patient.[facility] [place]In the event this information is protected by the Federal Confidentiality of Alcohol and Drug Abuse Patient Records regulations: The Federal rules restrict any use of the information to criminally investigate or prosecute any alcohol or drug abuse patient.[facility] [place]In the event this information is protected by the Federal Confidentiality of Alcohol and Drug Abuse Patient Records regulations: The Federal rules restrict any use of the information to criminally investigate or prosecute any alcohol or drug abuse patient.[facility] [place]In the event this information is protected by the Federal Confidentiality of Alcohol and Drug Abuse Patient Records regulations: The Federal rules restrict any use of the information to criminally investigate or prosecute any alcohol or drug abuse patient.[facility] [place]In the event this information is protected by the Federal Confidentiality of Alcohol and Drug Abuse Patient Records regulations: The Federal rules restrict any use of the information to criminally investigate or prosecute any alcohol or drug abuse patient.[facility] [place]In the event this information is protected by the Federal Confidentiality of Alcohol and Drug Abuse Patient Records regulations: The Federal rules restrict any use of the information to criminally investigate or prosecute any alcohol or drug abuse patient.[facility] [place]In the event this information is protected by the Federal Confidentiality of Alcohol and Drug Abuse Patient Records regulations: The Federal rules restrict any use of the information to criminally investigate or prosecute any alcohol or drug abuse patient.[facility] [place]In the event this information is protected by the Federal Confidentiality of Alcohol and Drug Abuse Patient Records regulations: The Federal rules restrict any use of the information to criminally investigate or prosecute any alcohol or drug abuse patient.[facility] [place]In the event this information is protected by the Federal Confidentiality of Alcohol and Drug Abuse Patient Records regulations: The Federal rules restrict any use of the information to criminally investigate or prosecute any alcohol or drug abuse patient.[facility] [place]In the event this information is protected by the Federal Confidentiality of Alcohol and Drug Abuse Patient Records regulations: The Federal rules restrict any use of the information to criminally investigate or prosecute any alcohol or drug abuse patient.[facility] [place]In the event this information is protected by the Federal Confidentiality of Alcohol and Drug Abuse Patient Records regulations: The Federal rules restrict any use of the information to criminally investigate or prosecute any alcohol or drug abuse patient.[facility] [place]stownIn the event this information is protected by the Federal Confidentiality of Alcohol and Drug Abuse Patient Records regulations: The Federal rules restrict any use of the information to criminally investigate or prosecute any alcohol or drug abuse patient.[facility] [place]In the event this information is protected by the Federal Confidentiality of Alcohol and Drug Abuse Patient Records regulations: The Federal rules restrict any use of the information to criminally investigate or prosecute any alcohol or drug abuse patient.[facility] [place]stownIn the event this information is protected by the Federal Confidentiality of Alcohol and Drug Abuse Patient Records regulations: The Federal rules restrict any use of the information to criminally investigate or prosecute any alcohol or drug abuse patient.[facility] [place]stownIn the event this information is protected by the Federal Confidentiality of Alcohol and Drug Abuse Patient Records regulations: The Federal rules restrict any use of the information to criminally investigate or prosecute any alcohol or drug abuse patient.[facility] [place]stownIn the event this information is protected by the Federal Confidentiality of Alcohol and Drug Abuse Patient Records regulations: The Federal rules restrict any use of the information to criminally investigate or prosecute any alcohol or drug abuse patient.[facility] [place]stownIn the event this information is protected by the Federal Confidentiality of Alcohol and Drug Abuse Patient Records regulations: The Federal rules restrict any use of the information to criminally investigate or prosecute any alcohol or drug abuse patient.[facility] [place]stownIn the event this information is protected by the Federal Confidentiality of Alcohol and Drug Abuse Patient Records regulations: The Federal rules restrict any use of the information to criminally investigate or prosecute any alcohol or drug abuse patient.[facility] [place]stownIn the event this information is protected by the Federal Confidentiality of Alcohol and Drug Abuse Patient Records regulations: The Federal rules restrict any use of the information to criminally investigate or prosecute any alcohol or drug abuse patient.[facility] [place]stownIn the event this information is protected by the Federal Confidentiality of Alcohol and Drug Abuse Patient Records regulations: The Federal rules restrict any use of the information to criminally investigate or prosecute any alcohol or drug abuse patient.[facility] [place]In the event this information is protected by the Federal Confidentiality of Alcohol and Drug Abuse Patient Records regulations: The Federal rules restrict any use of the information to criminally investigate or prosecute any alcohol or drug abuse patient.[facility] [place]stownIn the event this information is protected by the Federal Confidentiality of Alcohol and Drug Abuse Patient Records regulations: The Federal rules restrict any use of the information to criminally investigate or prosecute any alcohol or drug abuse patient.[facility] [place]stownIn the event this information is protected by the Federal Confidentiality of Alcohol and Drug Abuse Patient Records regulations: The Federal rules restrict any use of the information to criminally investigate or prosecute any alcohol or drug abuse patient.[facility] [place]stownIn the event this information is protected by the Federal Confidentiality of Alcohol and Drug Abuse Patient Records regulations: The Federal rules restrict any use of the information to criminally investigate or prosecute any alcohol or drug abuse patient.[facility] [place]stownIn the event this information is protected by the Federal Confidentiality of Alcohol and Drug Abuse Patient Records regulations: The Federal rules restrict any use of the information to criminally investigate or prosecute any alcohol or drug abuse patient.[facility] [place]stownIn the event this information is protected by the Federal Confidentiality of Alcohol and Drug Abuse Patient Records regulations: The Federal rules restrict any use of the information to criminally investigate or prosecute any alcohol or drug abuse patient.[facility] [place]stownIn the event this information is protected by the Federal Confidentiality of Alcohol and Drug Abuse Patient Records regulations: The Federal rules restrict any use of the information to criminally investigate or prosecute any alcohol or drug abuse patient.[facility] [place]stownIn the event this information is protected by the Federal Confidentiality of Alcohol and Drug Abuse Patient Records regulations: The Federal rules restrict any use of the information to criminally investigate or prosecute any alcohol or drug abuse patient.[facility] [place]stownIn the event this information is protected by the Federal Confidentiality of Alcohol and Drug Abuse Patient Records regulations: The Federal rules restrict any use of the information to criminally investigate or prosecute any alcohol or drug abuse patient.[facility] [place]stownIn the event this information is protected by the Federal Confidentiality of Alcohol and Drug Abuse Patient Records regulations: The Federal rules restrict any use of the information to criminally investigate or prosecute any alcohol or drug abuse patient.[facility] [place]stownIn the event this information is protected by the Federal Confidentiality of Alcohol and Drug Abuse Patient Records regulations: The Federal rules restrict any use of the information to criminally investigate or prosecute any alcohol or drug abuse patient.[facility] [place]In the event this information is protected by the Federal Confidentiality of Alcohol and Drug Abuse Patient Records regulations: The Federal rules restrict any use of the information to criminally investigate or prosecute any alcohol or drug abuse patient.[facility] [place]stownIn the event this information is protected by the Federal Confidentiality of Alcohol and Drug Abuse Patient Records regulations: The Federal rules restrict any use of the information to criminally investigate or prosecute any alcohol or drug abuse patient.[facility] [place]stownIn the event this information is protected by the Federal Confidentiality of Alcohol and Drug Abuse Patient Records regulations: The Federal rules restrict any use of the information to criminally investigate or prosecute any alcohol or drug abuse patient.[facility] [place]stownIn the event this information is protected by the Federal Confidentiality of Alcohol and Drug Abuse Patient Records regulations: The Federal rules restrict any use of the information to criminally investigate or prosecute any alcohol or drug abuse patient.[facility] [place]stownIn the event this information is protected by the Federal Confidentiality of Alcohol and Drug Abuse Patient Records regulations: The Federal rules restrict any use of the information to criminally investigate or prosecute any alcohol or drug abuse patient.[facility] [place]stownIn the event this information is protected by the Federal Confidentiality of Alcohol and Drug Abuse Patient Records regulations: The Federal rules restrict any use of the information to criminally investigate or prosecute any alcohol or drug abuse patient.[facility] [place]stownIn the event this information is protected by the Federal Confidentiality of Alcohol and Drug Abuse Patient Records regulations: The Federal rules restrict any use of the information to criminally investigate or prosecute any alcohol or drug abuse patient.[facility] [place]stownIn the event this information is protected by the Federal Confidentiality of Alcohol and Drug Abuse Patient Records regulations: The Federal rules restrict any use of the information to criminally investigate or prosecute any alcohol or drug abuse patient.[facility] [place]stownIn the event this information is protected by the Federal Confidentiality of Alcohol and Drug Abuse Patient Records regulations: The Federal rules restrict any use of the information to criminally investigate or prosecute any alcohol or drug abuse patient.[facility] [place]stownIn the event this information is protected by the Federal Confidentiality of Alcohol and Drug Abuse Patient Records regulations: The Federal rules restrict any use of the information to criminally investigate or prosecute any alcohol or drug abuse patient.[facility] [place]In the event this information is protected by the Federal Confidentiality of Alcohol and Drug Abuse Patient Records regulations: The Federal rules restrict any use of the information to criminally investigate or prosecute any alcohol or drug abuse patient.[facility] [place]In the event this information is protected by the Federal Confidentiality of Alcohol and Drug Abuse Patient Records regulations: The Federal rules restrict any use of the information to criminally investigate or prosecute any alcohol or drug abuse patient.[facility] [place]In the event this information is protected by the Federal Confidentiality of Alcohol and Drug Abuse Patient Records regulations: The Federal rules restrict any use of the information to criminally investigate or prosecute any alcohol or drug abuse patient.[facility] [place]In the event this information is protected by the Federal Confidentiality of Alcohol and Drug Abuse Patient Records regulations: The Federal rules restrict any use of the information to criminally investigate or prosecute any alcohol or drug abuse patient.[facility] [place]In the event this information is protected by the Federal Confidentiality of Alcohol and Drug Abuse Patient Records regulations: The Federal rules restrict any use of the information to criminally investigate or prosecute any alcohol or drug abuse patient.[facility] [place]In the event this information is protected by the Federal Confidentiality of Alcohol and Drug Abuse Patient Records regulations: The Federal rules restrict any use of the information to criminally investigate or prosecute any alcohol or drug abuse patient.[facility] [place]In the event this information is protected by the Federal Confidentiality of Alcohol and Drug Abuse Patient Records regulations: The Federal rules restrict any use of the information to criminally investigate or prosecute any alcohol or drug abuse patient.[facility] [place]In the event this information is protected by the Federal Confidentiality of Alcohol and Drug Abuse Patient Records regulations: The Federal rules restrict any use of the information to criminally investigate or prosecute any alcohol or drug abuse patient.[facility] [place]In the event this information is protected by the Federal Confidentiality of Alcohol and Drug Abuse Patient Records regulations: The Federal rules restrict any use of the information to criminally investigate or prosecute any alcohol or drug abuse patient.[facility] [place]In the event this information is protected by the Federal Confidentiality of Alcohol and Drug Abuse Patient Records regulations: The Federal rules restrict any use of the information to criminally investigate or prosecute any alcohol or drug abuse patient.[facility] [place]In the event this information is protected by the Federal Confidentiality of Alcohol and Drug Abuse Patient Records regulations: The Federal rules restrict any use of the information to criminally investigate or prosecute any alcohol or drug abuse patient.[facility] [place]In the event this information is protected by the Federal Confidentiality of Alcohol and Drug Abuse Patient Records regulations: The Federal rules restrict any use of the information to criminally investigate or prosecute any alcohol or drug abuse patient.[facility] [place]In the event this information is protected by the Federal Confidentiality of Alcohol and Drug Abuse Patient Records regulations: The Federal rules restrict any use of the information to criminally investigate or prosecute any alcohol or drug abuse patient.[facility] [place] Reason for Visit (unrecogniz ed section and content) Reason Comments Results Reason Comments Establish Care Previous pt. Of dr. Young at [facility]. Think he may have a seizure or stoke. Went to [facility] for 5 week. ([facility] [place] in [place]) Diarrhea X 2 months. BM is or prashant . Loss of weight . Goes 8 times a day Reason Comments Patient Question Reason Onset Date Comments [facility]- Other 08/24/2023 Care Coordination Reason Onset Date Comments [employer]- Other 09/10/2023 Care Coordination Reason Comments Diarrhea Reason Comments Patient Update Reason Onset Date Comments [facility] Chronic Care 09/15/2023 Care Coordination Reason Comments [...] ABD & PELVIS W/O CONTRAST Marianna Wagner, LOCAL AREA NETWORK ADMINISTRATOR.ACCOUNT SUPPORT ASSOCIATE [address] [place] [address] [place] [address] Referral ID Status Reason Start Date Expiration Date Visits Requested Visits Authorized [id number] Pending Review Patient Cleared - 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 60 MINUTES Marianna Wagner, LOCAL AREA NETWORK ADMINISTRATOR.ACCOUNT SUPPORT ASSOCIATE [address] [place] [address] Jacky Sebastian DO [address] [facility] [place] [address] Referral ID Status Reason Start Date Expiration Date V isits Requested Visits Authorized [id number] Closed PCP Requested Referral 10/17/2023 10/16/2024 1 1 Reason Onset Date Comments Refill Request 11/26/2023 Reason Comments denial: [id number] PANCREAS W IVCON Specialty Diagnoses / Procedures Referred By Jonathan moreira Referred To Contact Radiology / RADIO CT SCAN [facility] Diagnoses Diarrhea, unspecified CT PANCREAS W IVCON Diarrhea, unspecified type [R19.7] Acute pancreatitis, unspecified complication status, unspecified pancreatitis ty... Procedures CT ABDOMEN W/CONTRAST CT WWO ABD2 400 Marianna Wagner, LOCAL AREA NETWORK ADMINISTRATOR.ACCOUNT SUPPORT ASSOCIATE [address] [place] [address] [facility] [address] [place] [address] Referral ID Status Reason Start Date Expiration Date V isits Requested Visits Authorized [id number] Authorized 11/30/2023 12/30/2023 1 1 Specialty Diagnoses / Procedures Referred By Jonathan t Referred To Contact CT IMAGING Diagnoses Diarrhea, unspecified type Acute pancreatitis, unspecified complication status, unspecified pancreatitis type Procedures CT PANCREAS W IVCON CT ABDOMEN W/CONTRAST Marianna Wagner LOCAL AREA NETWORK ADMINISTRATOR.ACCOUNT SUPPORT ASSOCIATE [address] [place] [address] [place] [address] Referral ID Status Reason Start Date Expiration Date V isits Requested Visits Authorized [id number] Closed Auto-Generate d Referral 11/30/2023 12/30/2023 1 1 Reason Comments Anemia Diarrhea and blood i n the stool Specialty Diagnoses / Procedures Referred By Jonathan t Referred To Contact [facility] Diagnoses Chronic diarrhea Weight loss Procedures CONSULT TO GASTROENTEROLOGY OFFICE/OUTPATIENT NEW HIGH MDM 60 MINUTES Marianna Wagner APRN.ACCOUNT SUPPORT ASSOCIATE [address] [place] [address] [facility] GASTRO[facility]OLOGY [address] [place] [address] Referral ID Status Reason Start Date Expiration Date V isits Requested Visits Authorized [id number] Closed PCP Requested Referral 08/09/2023 08/08/2024 1 [...] BE BASED ON THE PRIMARY CLINICAL RECORDS. [employer] provides no warranty or guarantee of the accuracy or completeness of information in this document.
--- OUTSIDE RECORDS SUMMARY | 2025-01-20 15:20 | XMS RPT_ITS | CCD ---
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 Samantha Singer Emergency Provider Dr. Ashley Alvarado Admit Provider Dr. Arielle Crowe Other Provider Dr. Sonali Smyth Attending Provider Dr. Arielle Crowe Attending Provider Zo ORDER FULFILLMENT SPECIALIST, ORDER FULFILLMENT SPECIALIST-C Andreas Thorne Primary Care Pr ovider Dr. Trung Bob Attending Provider Dr. Ashley Alvarado Referring Provider Dr. Chris Call Emergency Provider Dr. Lucas Frausto Admit Provider Dr. Lucas Frausto Attending Provider Dr. Lucas Frausto Other Provider Dr. Refugio Rojas Attending Provider Dr. Refugio Rojas Other Provider Woodruff ORDER FULFILLMENT SPECIALIST, ORDER FULFILLMENT SPECIALIST-C Andreas Thorne Primary Care Pr ovider Zo ORDER FULFILLMENT SPECIALIST, ORDER FULFILLMENT SPECIALIST-C Andreas Thorne Referring Provi mary lou Yun West Attending Provider Unavailable Zo ORDER FULFILLMENT SPECIALIST, ORDER FULFILLMENT SPECIALIST-C Andreas Thorne Primary Care Pr ovider Dr. Jacky Bey Attending Provider [phone] Jacky Bey Referring Provider [phone] Samantha Singer Emergency Provider Dr. Valeriy Connell Admit Provider Dr. Valeriy Connell Attending Provider Dr. Valeriy Connell Other Provider Zo ORDER FULFILLMENT SPECIALIST, ORDER FULFILLMENT SPECIALIST-C Andreas Thorne Primary Care Pr ovider Dr. [...] Unavailable Dr. Vinh Lomeli Emergency Provider Zo ORDER FULFILLMENT SPECIALIST, ORDER FULFILLMENT SPECIALIST-C Andreas Thorne Primary Care Pr ovider Dr. [...] Rounding Nurse, Geremias Unavailable Unavai lable ZO SCREEN REPAIRER CRUSHER - PHYSICAL THERAPIST TECHNICIAN, ANDREAS Rod Primary Care U navailable ZO SCREEN REPAIRER CRUSHER - PHYSICAL THERAPIST TECHNICIAN, ANDREAS Rod Attending U navailable ZO SCREEN REPAIRER CRUSHER - PHYSICAL THERAPIST TECHNICIAN, ANDREAS Rod Primary Care U navailable ZO SCREEN REPAIRER CRUSHER - PHYSICAL THERAPIST TECHNICIAN, ANDREAS Rod Attending U navailable ZO SCREEN REPAIRER CRUSHER - PHYSICAL THERAPIST TECHNICIAN, ANDREAS Rod Attending U navailable ZO SCREEN REPAIRER CRUSHER - PHYSICAL THERAPIST TECHNICIAN, ANDREAS Rod Primary Care U navailable ZO SCREEN REPAIRER CRUSHER - PHYSICAL THERAPIST TECHNICIAN, ANDREAS Rod Attending U navailable ZO SCREEN REPAIRER CRUSHER - PHYSICAL THERAPIST TECHNICIAN, ANDREAS Rod Primary Care U navailable ZO SCREEN REPAIRER CRUSHER - PHYSICAL THERAPIST TECHNICIAN, ANDREAS Rod Primary Care U navailsuha GROSS MD, DR MENDEZ Attending Unavailable BERNARD FRANCISCO, DR MARIELY Love Admitting Kevin WAGNER MD, DR MARIELY Love Consulting Unavai lable ZO SCREEN REPAIRER CRUSHER - PHYSICAL THERAPIST TECHNICIAN, ANDREAS Rod Primary Care U navailable FRANDY FRANCISCO, DR DUNBAR Attending Unavailable ZO SCREEN REPAIRER CRUSHER - PHYSICAL THERAPIST TECHNICIAN, ANDREAS Rod Primary Care U natalia GROSS MD, DR MENDEZ Attending Unavailable ZO SCREEN REPAIRER CRUSHER - PHYSICAL THERAPIST TECHNICIAN, ANDREAS Rod Primary Care U navailable ZO SCREEN REPAIRER CRUSHER - PHYSICAL THERAPIST TECHNICIAN, ANDREAS Rod Attending U navailable ZO SCREEN REPAIRER CRUSHER - PHYSICAL THERAPIST TECHNICIAN, ANDREAS Rod Attending U navailable ZO SCREEN REPAIRER CRUSHER - PHYSICAL THERAPIST TECHNICIAN, ANDREAS Rod Primary Care U navailable ZO SCREEN REPAIRER CRUSHER - PHYSICAL THERAPIST TECHNICIAN, ANDREAS Rod Primary Care U navailable ZO SCREEN REPAIRER CRUSHER - PHYSICAL THERAPIST TECHNICIAN, ANDREAS Rod Attending U navailable ZO SCREEN REPAIRER CRUSHER - PHYSICAL THERAPIST TECHNICIAN, ANDREAS Rod Attending U navailable ZO SCREEN REPAIRER CRUSHER - PHYSICAL THERAPIST TECHNICIAN, ANDREAS Rod Primary Care U navailable ZO SCREEN REPAIRER CRUSHER - PHYSICAL THERAPIST TECHNICIAN, ANDREAS Rod Primary Care U navailable FROMMELT DO, MAGDALENA Attending Unavailable RIDER DO, DR MERRICK Alvarez Attending Unavailable ZO SCREEN REPAIRER CRUSHER - PHYSICAL THERAPIST TECHNICIAN, ANDREAS Rod Primary Care U navailable Woodruff ORDER FULFILLMENT SPECIALIST, ORDER FULFILLMENT SPECIALIST-C Andreas Thorne Primary Care Pr ovider Dr. Trung Bob Attending Provider Le, Dr. Perez Emergency Provider Dr. Lucas Frausto Admit Provider Jett, Dr. Lucas Fan Attending Provider Dr. Lucas Frausto Other Provider Christiano, Dr. Ashley Washington Attending Provider Korjessica, Dr. Ashley Washington Other Provider Zo ORDER FULFILLMENT SPECIALIST, ORDER FULFILLMENT SPECIALIST-C Andreas Thorne Primary Care Pr ovider Dr. [...] Provider Dr. Aramis Palacios Other Provider Dr. Brary Sheehan Other Provider Dr. Aldo Castellano Other Provider Dr. [place] Other Provider Dr. Chen Merrill Other Provider Dr. Mundo Marcelino Other Provider Dr. Meli Miles Other Provider Dr. Tiara Horowitz Other Provider Unavailable Dr. Yunier Allred Other Provider Dr. Jose Pacheco Other Provider [phone] Marquez Elmore Other Provider Dr. Bronson Peterson Other Provider Dr. Toni Dodge Other Provider Dr. Conrado Morel Referring Provider Unavailable Dr. Barry Sheehan Attending Provider Dr. Iman Aguayo Attending Provider Dr. Maya Melo Other Provider [phone] Dr. Refugio Rojas Attending Provider Dr. Refugio Rojas Other Provider Trung Bob MD S Unavailable Queden SCREEN REPAIRER CRUSHER.PHYSICAL THERAPIST TECHNICIAN, Marianna A Primary Care Provider QUEDEN ORDER FULFILLMENT SPECIALIST-C, MARIANNA Primary Care Physician QUEDEN ORDER FULFILLMENT SPECIALIST-C, MARIANNA Primary Care Unavailable ANN-MARIE DILLON DO Attending Unavailable QUEDEN, MARIANNA A Referring Unavailable QUEDEN, MARIANNA A Primary Care Unavailable QUEDEN, MARIANNA A Primary Care Unavailable LUCAS DELAROSA Attending Unavailable PROVIDER, UNKNOWN Referring Unavailable Care Physician, No Primary Primary Care Provider Unavailable Paulino FRANCISCO, Dr. Nino Attending Provider Nick RILEY, Dr. Gongora Referring Provider Nick RILEY, Dr. Gongora Emergency Provider Queden ORDER FULFILLMENT SPECIALIST-C, [facility] Care Provider de Evelio DO, Dr. Camp Admit Provider Unavail able de Evelio DO, Dr. Camp Attending Provider Unav ailable de Evelio DO, Dr. Camp Other Provider Unavail able Rj RILEY, Dr. Wilhelm Attending Provider Rj RILEY, Dr. Wilhelm Other Provider Nupur RILEY, Dr. Hardy Attending Provider Care Physician, No Primary Primary Care Provider Unavailable Paulino FRANCISCO, Dr. Nino Attending Provider Nick RILEY, Dr. Gongora Referring Provider [facility], Dr. Gongora Emergency Provider Queden ORDER FULFILLMENT SPECIALIST-C, [facility] Care Provider [phone] de Evelio DO, Dr. Camp Admit Provider Unavail able de Evelio DO, Dr. Camp Other Provider Unavail able Rj RILEY, Dr. Wilhelm Attending Provider [phone] Dr. Melonie De La Rosa DO Other Provider Dr. Antony Espitia DO Attending Provider North RandallDr. Narendra manrique DO Emergency Provider de Evelio DO, Dr. Camp Attending Provider Unav ailable de Evelio DO, Dr. Camp Referring Provider Unav ailable Margo RILEY, Dr. Perez Attending Provider Tona FRANCISCO, Dr. Groves Other Provider Margo RILEY, Dr. Perez Other Provider Dr. Yaneli Carbone MD Attending Provider Matias RN, Radha Unavailable Quintin RILEY Dr. [...] Provider Philip FRANCISCO, Dr. Self Other Provider Agiula RILEY, Dr. Reddy Other Provider Claudio FRANCISCO, Dr. Conrado Armenta Other Provider Gray FRANCISCO, Dr. Carlson Other Provider [phone] Urmila FRANCISCO, Dr. Amor Other Provider Garfield FRANCISCO, Dr. Siddiqui Other Provider [phone] Chari FRANCISCO, Dr. Flower Other Provider Julius FRANCISCO, Dr. Bowers Other Provider [phone] Dr. Suleman Denis MD Other Provider [phone] Jd FRANCISCO, Dr. Garrison Other Provider Carlos Manuel FRANCISCO, Dr. Menjivar Other Provider Unavailtrios health giancarlo Fontenot MD, Dr. Bearden Other Provider Brigida FRANCISCO, Dr. Faye Other Provider Junior FRANCISCO, Dr. Garcia Other Provider Ramírez FRANCISCO, Dr. Zayas Other Provider Dr. Wilbert Lozano DO Other Provider Kendra FRANCISCO, Dr. Gary Other Provider [phone] Dr. Vladimir Matson MD Other Provider [phone] Dwight Vora DO Other Provider Nicholas FRANCISCO, Dr. Dobson Other Provider Dar FRANCISCO, Dr. Muñoz Other Provider Jett FRANCISCO, Dr. Lucas Fan Other Provider Aliya ORDER FULFILLMENT SPECIALIST-CBernadette Attending Provider Jett FRANCISCO, Dr. Lucas Fan Referring Provider Aguila RILEY, Dr. Reddy Attending Provider Jakub RILEY, Sigird Referring Provider Peggy Song Attending Provider Dr. Valeryi Flores DO Emergency Provider Dr. Valeriy Flores DO Attending Provider [phone] Edi ORDER FULFILLMENT SPECIALIST-C, Heather Attending Provider Case FRANCISCO, Dr. Ortiz [...] Referring Unavailable Antony Espitia Attending Unavailable Queden ORDER FULFILLMENT SPECIALIST, [facility] Primary Care Unavailable Melonie De La Rosa Consulting Unavailable Yaneli Carbone Consulting Unavailable Chris Aragon Consulting Unavailable Yaneli Carbone Attending Unavailable Queden ORDER FULFILLMENT SPECIALIST, [facility] Primary Care Unavailable [facility] Primary Care Unavailable Melonie De La Rosa Referring Unavailable Melonie De La Rosa Attending Unavailable Yaneli Carbone Attending Unavailable [facility], [facility] Primary Care Unavailable Mark Ricketts Attending Unavailable Melonie De La Rosa Admitting Unavailable Piper Fontanez Consulting Unavailable Queden ORDER FULFILLMENT SPECIALIST, [facility] Primary Care Unavailable Dian Rios Attending Unavailable Conrado Morel Referring Unavailable Melonie De La Rosa Consulting Unavailable Conrado Morel Consulting Unavailable Conrado Morel Attending Unavailable Conrado Pro Consulting Unavailable Conrado Pro Attending Unavailable Conrado Pro Admitting Unavailable Conrado Pro Referring Unavailable Quedevyn ORDER FULFILLMENT SPECIALIST, [facility] Primary Care Unavailable Chris Aragon Attending Unavailable Care Physician, No Primary Primary Care Unava ilable Trung Bob Attending Unavailable Lucas Frausto Attending Unavailable [facility], [facility] Primary Care Unavailable Jacky Vila Consulting Unavailable [...] Wilbert Consulting Unavailable Abdirahman Gardner Consulting Unavailable [place], Soleyah Consulting Unavailable Fernstrom, Dwight Consulting Unavailable Nicholas, Bronson Consulting Unavailable Toni Dodge Consulting Unavailable Lucas Frausto Consulting Unavailable Barry Sheehan Attending Unavailable Lucas Frausto Referring Unavailable Antony Espitia Attending Unavailable [facility] Unavailable Peggy Lima Attending Unavailable Peggy Lima Referring Unavailable Valeriy Connell Attending Unavailable [facility] Unavailable Diana Willoughby Admitting Unavailable Diana Willoughby [...] Wilbert Consulting Unavailable Abdirahman Gardner Consulting Unavailable [place], Soleyah Consulting Unavailable Fernstrom, Dwight Consulting Unavailable Nicholas, Bronson Consulting Unavailable Patty Hendricks Consulting UnavailToni Luz Consulting Unavailable Conrado Pro Consulting Unavailable Conrado Pro Admitting Unavailable Conrado Pro Attending Unavailable Rolan Romero Referring Unavailnelson Wagner ORDER FULFILLMENT SPECIALIST, [place] Primary Care Unavailable Melonie De La Rosa Attending Unavailable Ashley Alvarado Attending Unavailable [facility] Unavailable Diana Willoughby Consulting Unavailable Diana Willoughby [...] Patty Hendricks Consulting UnavailToni Luz Consulting Unavailable [facility], [facility] Primary Care Unavailable [facility] Referring Unavailable Peggy Lima Attending Unavailable Valeriy Connell Referring Unavailable Suyapa Bustos Attending Unavailable Valeriy Ross Consulting Unavailable Becki Valeriy Consulting Unavailable [facility] Primary Care Unavailable Jacky Vila Attending Unavailable Bernadette Pisano Attending Unavailable Trung Bob Attending Unavailable Care Physician, No Primary Primary Care Unava ilable [facility] Primary Care Unavailable Trung Bob Attending Unavailable Piper Pearson Attending Unavailable Sonali Smyth Consulting UnavailValeriy Cooley Consulting Unavailable [facility], [facility] Primary Care Unavailable Perez Ribeiro Attending Unavailable Diana Willoughby Attending Unavailable Bernadette Pisano Attending Unavailable Sonali Smyth Attending UnavailValeriy Cooley Attending Unavailable Melonie De La Rosa Admitting Unavailable [facility], [facility] Primary Care Unavailable Piper Fontanez Consulting Unavailable Conrado Morel Attending Unavailable Melonie De La Rosa Consulting Unavailable Conrado Pro Admitting Unavailable Conrado Pro Referring Unavailable Conrado Pro Consulting Unavailable Fátima DAVIS, Marianna Primary Care Unavailable Chris Aragon Attending Unavailable Melonie De La Rosa Consulting Unavailable Yaneli Carbone Consulting Unavailable Conrado Pro Consulting Unavailable Conrado Pro Admitting Unavailable Rolan Romero Referring Unavailnelson e Fátima ORDER FULFILLMENT SPECIALIST, Marianna Primary Care Unavailable Melonie De La Rosa Attending Unavailable Fátima ORDER FULFILLMENT SPECIALIST, Marianna Primary Care Unavailable Melonie De La [...] Morel Attending Unavailable Valeriy Connell Attending Unavailable Jkaub VSC, Sigrid Primary Care Unavailable Iman Aguayo Admitting Unavailable Iman Aguayo Consulting Unavailable Valeriy Ross Unavailable Medications Current Medications Medication Drug Class(es) Dates Sig (Normalized) Sig (Original) Blood Glucose Test Machine (11 sources) Start: 05-02-2021 Blood Glucose Test Machine See Instructions, Use as directed Brand type per insurance or patient preference, # 1 EA, 0 Refill(s), Pharmacy: [facility], 176.5, cm, 05/02/21 11:34:00 EDT, Height, 73.2, kg, 05/02/21 13:04:00 EDT, Dosing Weight Start Date: 05/02/21 Status: Ordered Quantity: 1.0 Unit: EA Repeat number: 1 Start: 05-02-2021 Blood Glucose Test Machine See Instructions, Use as directed Brand type per insurance or patient preference, # 1 EA, 0 Refill(s), Pharmacy: [facility], 176.5, cm, 05/02/21 11:34:00 EDT, Height, 73.2, kg, 05/02/21 13:04:00 EDT, Dosing Weight Start Date: 05/02/21 Status: Ordered Blood-Glucose Meter,Continuo us (FREESTYLE MANGO 3 READER) [facility] [place] (20 sources) Start: 08-29-2023 Blood-Glucose Meter,Continuous (FREESTYLE MANGO 3 READER) [facility] [place] Indications: Type 2 diabetes mellitus with complication, with long-term current use of insulin (HCC) Use to check blood sugar at least four (4) times daily. 1 Each 08/29/2023 Suspended Start: 08-29-2023 Blood-Glucose Meter,Continuous (FREESTYLE MANGO 3 READER) [facility] [place] Indications: Type 2 diabetes mellitus with complication, with long-term current use of insulin (HCC) Use to check blood sugar at least four (4) times daily. 1 Each 08/29/2023 Active Start: 08-29-2023 Blood-Glucose Meter,Continuous (FREESTYLE MANGO 3 READER) [facility] [place] Indications: Type 2 diabetes mellitus with complication, with long-term current use of insulin (HCC) Use to check blood sugar at least four (4) times daily. 1 Each 0 08/29/2023 Active Blood-Glucose Sensor (FREEST YLE MANGO 3 SENSOR) [facility] (20 sources) Start: 12-27-2023 Blood-Glucose Sensor (FREESTYLE MNAGO 3 SENSOR) [facility] Indications: Type 2 diabetes [...] sensors, # 2 EA, 3 Refill(s), Pharmacy: [facility], 176, cm, 03/29/23 13:58:00 EST, Height, 67.6, kg, 03/29/23 13:58:00 EST, Dosing Weight Start Date: 04/28/23 Status: Ordered Quantity: 2.0 Unit: EA Repeat number: 4 Start: 04-28-2023 DME MISCellane ous See Instructions, Libre2 sensors. Use to check blood sugar, replace every 14 days. Dispense #2 sensors, # 2 EA, 3 Refill(s), Pharmacy: [facility], 176, cm, 03/29/23 13:58:00 EST, Height, 67.6, kg, 03/29/23 13:58:00 EST, Dosing Weight Start Date: 04/28/23 Status: Ordered Start: 01-11-2023 DME MISCellane ous See Instructions, Patient needs a refill on Freestyle Mango 2 sensors., # 2 EA, 3 Refill(s), Pharmacy: [facility], 180, cm, 10/15/22 11:38:00 EDT, Height, 66.8, kg, 10/15/22 11:38:00 EDT, Dosing Weight Start Date: 01/11/23 Status: Ordered Quantity: 2.0 Unit: EA Repeat number: 4 Start: 01-11-2023 DME MISCellane ous See Instructions, Patient needs a refill on Freestyle Mango 2 sensors., # 2 EA, 3 Refill(s), Pharmacy: [facility], 180, cm, 10/15/22 11:38:00 EDT, Height, 66.8, kg, 10/15/22 11:38:00 EDT, Dosing Weight Start Date: 01/11/23 Status: Ordered Start: 11-17-2022 DME MISCellane ous See Instructions, Pen needles. Use with Lantus insulin pen for daily injection. dispense #1 box + 11 refills., # 100 EA, 11 Refill(s), Pharmacy: [facility], 180, cm, 10/15/22 11:38:00 EDT, Height, 66.8, kg, 10/15/22 11:38:00 EDT, Dosing Weight Start Date: 11/17/22 Status: Ordered Quantity: 100.0 Unit: EA Repeat number: 12 Start: 11-17-2022 DME MISCellane ous See Instructions, Pen needles. Use with Lantus insulin pen for daily injection. dispense #1 box + 11 refills., # 100 EA, 11 Refill(s), Pharmacy: [facility], 180, cm, 10/15/22 11:38:00 EDT, Height, 66.8, kg, 10/15/22 11:38:00 EDT, Dosing Weight Start Date: 11/17/22 Status: Ordered Start: 09-29-2022 DME MISCellane ous See Instructions, Patient needs a refill on Freestyle Mango 2 sensors., # 2 EA, 3 Refill(s), Pharmacy: [facility], 176, cm, 07/02/22 10:24:00 EDT, Height, 67.7, kg, 07/02/22 10:18:00 EDT, Dosing Weight Start Date: 09/29/22 Status: Ordered Start: 09-10-2022 DME MISCellane ous See Instructions, Freestyle Mango 2 Sensor, # 1 EA, 0 Refill(s), Pharmacy: [facility], 176, cm, 07/02/22 10:24:00 EDT, Height, 67.7, kg, 07/02/22 10:18:00 EDT, Dosing Weight Start Date: 09/10/22 Status: Ordered Quantity: 1.0 Unit: EA Repeat number: 1 Start: 09-10-2022 DME MISCellane ous See Instructions, Freestyle Mango 2 Sensor, # 1 EA, 0 Refill(s), Pharmacy: [facility], 176, cm, 07/02/22 10:24:00 EDT, Height, 67.7, kg, 07/02/22 10:18:00 EDT, Dosing Weight Start Date: 09/10/22 Status: Ordered Start: 08-15-2022 DME MISCellane ous See Instructions, Libre2 reader. Use with sensor to check blood sugar. Dispense #1 reader, 0 refills, # 1 EA, 0 Refill(s), Pharmacy: [facility], 176, cm, 07/02/22 10:24:00 EDT, Height, 67.7 Start Date: 08/15/22 Status: Ordered Quantity: 1.0 Unit: EA Repeat number: 1 Start: 08-15-2022 DME MISCellane ous See Instructions, Libre2 reader. Use with sensor to check blood sugar. Dispense #1 reader, 0 refills, # 1 EA, 0 Refill(s), Pharmacy: [facility], 176, cm, 07/02/22 10:24:00 EDT, Height, 67.7 Start Date: 08/15/22 Status: Ordered Start: 08-15-2022 DME MISCellane ous See Instructions, Libre2 sensors. Use to check blood sugar, replace every 14 days. Dispense #2 sensors with 11 refills, # 1 EA, 0 Refill(s), Pharmacy: [facility], 176, cm, 07/02/22 10:24:00 EDT, Height, 67.7 Start Date: 08/15/22 Status: Ordered Start: 08-15-2022 DME MISCellane ous See Instructions, Pen needles. Use with Lantus insulin pen for daily injection. dispense #1 box + 11 refills., # 1 EA, 0 Refill(s), Pharmacy: [facility], 176, cm, 07/02/22 10:24:00 EDT, Height, 67.7 [...] 7 days. 7 tablet 10/17/2023 10/24/2023 Active Kfjeth-Juktktou-Ivg lase (4 sources) Start: 09-08-2019 take 1 capsule by mouth five times daily Fyjumn-Njjbjmpp-Kpl lase Active 1 CAP PO 5 TIMES DAILY September 08, 2019 1:14pm Rfjgiq-Ugbsisdp-Ehl lase (Creon) 24,000-76,000 -120,000 unit Capsule,Delayed Release(Dr/Ec) (1 source) Start: 06-28-2024 take [id number] capsules by mouth three times daily at mealtime Swdgaw-Nqvojdpg-Ndv lase (Creon) 24,000-76,000 -120,000 unit Capsule,Delayed Release(Dr/Ec) [...] SUGAR, # 100 strip, 11 Refill(s), Pharmacy: [id number], 180.3, cm, 04/13/19 10:19:00 EST, Height, 81.7, [...] snack, # 450 cap(s), 2 Refill(s), Pharmacy: [facility], Chronic pancreatitis, 180.3, cm, 10/04/20 9:00:00 EDT, Height, kg, 10/04/20 9:00:00 EDT, Dosing Weight Start Date: 10/04/20 Stop Date: 07/01/21 Status: Ordered Pen needles 5 mm (12 sources) Start: 04-09-2022 Pen needles 5 mm See Instructions, qs for 1 month supply, # 1 EA, 0 Refill(s), Pharmacy: [facility], DM type 2, goal HbA1c Start Date: 04/09/22 Status: Ordered Quantity: 1.0 Unit: EA Repeat number: 1 Indication: Type 2 diabetes mellitus without complications Start: 04-09-2022 Pen needles 5 mm See Instructions, qs for 1 month supply, # 1 EA, 0 Refill(s), Pharmacy: [facility], DM type 2, goal HbA1c Start Date: 04/09/22 Status: Ordered Start: 07-05-2020 Pen needles 5 mm See Instructions, qs for 1 month supply, # 1 EA, 11 Refill(s), Pharmacy: [facility], DM type 2, goal HbA1c Start Date: 07/05/20 Status: Ordered polyethylene glycol 3350 [id number] mg / potassium chloride 2970 mg / sodium bicarbonate 6740 mg / sodium chloride 5860 mg / sodium sulfate 99504 mg powder for oral solution (1 source) [...] qDay, # 90 tab(s), 1 Refill(s), Pharmacy: [facility], Anemia of chronic [...] [facility] Start: 09-08-2019 End: 08-10-2023 amylase [id number] unt / lipase 50936 unt / protease [id number] unt delayed release oral capsule (20 sources) [...] qWeek, # 13 cap(s), 1 Refill(s), Pharmacy: [facility], Vitamin D deficiency, [...] qDay, # 30 tab(s), 5 Refill(s), Pharmacy: [facility], 176.5, cm, 05/15/21 8:40:00 EDT, [...] qHS, # 30 tab(s), 1 Refill(s), Pharmacy: [facility], GERD (gastroesophageal reflux disease), 176, cm, 10/01/22 10:16:00 EDT, Height, kg, 10/01/22 10:16:00 EDT, Dosing Weight Start Date: 10/01/22 Status: Ordered Start: 05-04-2022 End: 06-03-2022 Pepcid 40 mg oral tablet Dos e : 40 mg = 1 tab(s), Oral, qHS, # 30 tab(s), 0 Refill(s), Pharmacy: [facility], Epigastric abdominal pain [...] mL, 2 Refill(s), 01/13/22 8:51:00 EST, Pharmacy: [facility], DM type 2, [...] Coronary atherosclerosis; Translations: [Atherosclerotic heart disease of [place] coronary artery without angina pectoris] Onset: 7 [...] valve replacement with a Bovine Valve [facility] 2016 Hypertension with complications and secondary [...] follow-up 05-21-2022 Episodic Other aftercare (2 sources) 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; Translations: [Type 2 [...] sources) Long-term current use of insulin; Translations: [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] Onset: 7 08-09-2023 [...] Facility CASE MANAGEMon 10-27-2024 CASE MANAGEM Normal [facility] CASE MANAGEM Normal [facility] CBC panel Auto (Bld)on 10-27 Erythrocyte distribution width (RBC) [Ratio] 17.0 % High 11.5-15.0 [facility] Comment on above: Order Comment: Speci men Type: BLOOD SPECIMENOrdering Facility: [facility] Address: [address] [place] [address] Performed By: #### 5 [id number] ####[facility] LABCLIA [id number] [place] [address] [place] Hematocrit (Bld) [Volume fraction] 25.6 % Low 39.0-51.0 [facility] Comment on above: Order Comment: Speci men Type: BLOOD SPECIMENOrdering Facility[facility] Address: [address] [place] [address] Performed By: #### 5 8410-2 ####[facility] LABIA [id number] [place] [address] [place] Hemoglobin (Bld) [Mass/Vol] 7.9 g/dL Low 13.0-17.0 [facility] Comment on above: Order Comment: Speci men Type: BLOOD SPECIMENOrdering Facility: [facility] Address: [address] [place] [address] Performed By: #### 5 8410-2 ####[facility] [id number] [place] [address] [place] MCH (RBC) [Entitic mass] 31.5 pg Normal 26.0-34.0 [facility] Comment on above: Order Comment: Speci men Type: BLOOD SPECIMENOrdering Facility: [facility] Address: [address] [place] [address] Performed By: #### 5 8410-2 ####[facility] [id number] [place] [address] [place] MCHC (RBC) [Mass/Vol] 30.9 g/dL Normal 30.5-36.0 [facility] Comment on above: Order Comment: Speci men Type: BLOOD SPECIMENOrdering Facility: [facility] Address: [address] [place] [address] Performed By: #### 5 8410-2 ####[facility] [id number] [place] [address] [place] MCV (RBC) [Entitic vol] 102.0 fL High 80.0-100.0 C [facility] Comment on above: Order Comment: Speci men Type: BLOOD SPECIMENOrdering Facility: [facility] Address: [address] [place] [address] Performed By: #### 5 8410-2 ####[facility] LABCLIA [id number] [place] [address] [place] Nucleated RBC (Bld) [#/Vol] 10*3/uL Normal <0.01 [facility] Comment on above: Order Comment: Speci men Type: BLOOD SPECIMENOrdering Facility: [facility] Address: [address] [place] [address] Performed By: #### 5 8410-2 ####[facility] LABIA [id number] [place] [address] [place] Platelet mean volume (Bld) [Entitic vol] 11.1 fL Normal 9.0-12.7 [facility] Comment on above: Order Comment: Speci men Type: BLOOD SPECIMENOrdering Facility: [facility] Address: [address] [place] [address] Performed By: #### 5 8410-2 ####[facility] LABIA [id number] [place] [address] [place] Platelets (Bld) [#/Vol] 111 10*3/uL Low 150-400 [facility] Comment on above: Order Comment: Speci men Type: BLOOD SPECIMENOrdering Facility: [facility] Address: [address] [place] [address] Result Comment: Resu lts checked and verified.No clot detected. Performed By: #### 5 8410-2 ####[facility] LABCLIA [id number] [place] [address] [place] RBC (Bld) [#/Vol] 2.51 10*6/uL Low 4.20-6.00 [facility] Comment on above: Order Comment: Speci men Type: BLOOD SPECIMENOrdering Facility: [facility] Address: [address] [place] [address] Performed By: #### 5 8410-2 ####[facility] LABCLIA [id number] [address] [address] [place] WBC (Bld) [#/Vol] 6.84 10*3/uL Normal 3.70-11.00 [facility] Comment on above: Order Comment: Speci men Type: BLOOD SPECIMENOrdering Facility: [facility] Address: [address] [place] [address] Performed By: #### 5 8410-2 ####[facility] LABCLIA [id number] [address] [address] [place] CNDSon 10-27-2024 CNDS Normal [facility] Comprehensive metabolic 2000 panelon 10-27-2024 Albumin [Mass/Vol] 2.5 g/dL Low 3.9-4.9 [facility] Comment on above: Order Comment: Speci men Type: BLOOD SPECIMENOrdering Facility: [facility] Address: [address] [place] [address] Performed By: #### 1 9123-9, 25448-2, 2777- ####[facility] LABCLIA [id number] [place] [id number] [place] ALP [Catalytic activity/Vol] 104 U/L Normal 38-113 [facility] Comment on above: Order Comment: Speci men Type: BLOOD SPECIMENOrdering Facility: [facility] Address: [address] [place] [address] Performed By: #### 1 9123-9, 50536-9, 2777-1 ####[facility] LABCLIA [id number] [address] [address] [place] ALT [Catalytic activity/Vol] 15 U/L Normal 10-54 [facility] Comment on above: Order Comment: Speci men Type: BLOOD SPECIMENOrdering Facility: [facility] Address: [address] [place] [address] Performed By: #### 1 9123-9, 22913-4, 2777-1 ####[facility] LABCLIA [id number] [address] [address] [place] Anion gap [Moles/Vol] 12 mmol/L Normal 8-15 [facility] Comment on above: Order Comment: Speci men Type: BLOOD SPECIMENOrdering Facility: [facility] Address: [address] [place] [address] Performed By: #### 1 9123-9, 88360-8, 2777-1 ####[facility] LABCLIA [id number] [place] [id number] [place] AST [Catalytic activity/Vol] 24 U/L Normal 14-40 [facility] Comment on above: Order Comment: Speci men Type: BLOOD SPECIMENOrdering Facility: [facility] Address: [address] [place] [address] Performed By: #### 1 9123-9, 98828-3, 2777-1 ####[facility] LABCLIA [id number] [place] [id number] [place] Bilirubin [Mass/Vol] 0.3 mg/dL Normal 0.2-1.3 [facility] Comment on above: Order Comment: Speci men Type: BLOOD SPECIMENOrdering Facility: [facility] Address: [address] [place] [address] Performed By: #### 1 9123-9, 42293-0, 2777- ####[facility] LABCLIA [id number] [place] [id number] [place] Calcium [Mass/Vol] 8.5 mg/dL Normal 8.5-10.2 [facility] Comment on above: Order Comment: Speci men Type: BLOOD SPECIMENOrdering Facility: [facility] Address: [address] [place] [address] Performed By: #### 1 9123-9, 46868-4, 2777-1 ####[facility] LABCLIA [id number] [place] [address] [place] Chloride [Moles/Vol] 98 mmol/L Normal 98-107 [facility] Comment on above: Order Comment: Speci men Type: BLOOD SPECIMENOrdering Facility: [facility] Address: [address] [place] [address] Performed By: #### 1 9123-9, 95632-6, 2777-1 ####[facility] LABCLIA [id number] [place] [address] [place] CO2 [Moles/Vol] 27 mmol/L Normal 22-30 [facility] Comment on above: Order Comment: Speci men Type: BLOOD SPECIMENOrdering Facility: [facility] Address: [address] [place] [address] Performed By: #### 1 9123-9, 12837-8, 2777-1 ####[facility] LABCLIA [id number] [place] [address] [place] Creatinine [Mass/Vol] 1.09 mg/dL Normal 0.73-1.22 [facility] Comment on above: Order Comment: Speci men Type: BLOOD SPECIMENOrdering Facility: [facility] Address: [address] [place] [address] Performed By: #### 1 9123-9, 30107-7, 2777-1 ####[facility] LABIA [id number] [place] [address] [place] eGFRcr SerPlBld CKD-EPI 2020 77 mL/min/1.73m??? Normal >=60 [facility] Comment on above: Order Comment: Speci men Type: BLOOD SPECIMENOrdering Facility: [facility] Address: [address] [place] [address] Result Comment: Gurwinder mated Glomerular Filtration Rate [...] Performed By: #### 1 23-9, , 2776-02 ####[facility] LABCLIA [id number] [id number] [address] [place] Glucose [Mass/Vol] 92 mg/dL Normal 74-99 [facility] Comment on above: Order Comment: Gini nowak Type: BLOOD SPECIMENOrdering Facility: [facility] Address: [address] [place] [address] Result Comment: The [place] [employer] (ADA) provides guidance for cutoff [...] Standards of Medical Care in Diabetes 2016, [place] [employer]. Diabetes Care. 2016.39(Suppl 1). Performed By: #### 1 23-9, , 2776-02 ####[facility] LABCLIA [id number] [id number] [address] [place] Potassium [Moles/Vol] 5.0 mmol/L Normal 3.7-5.1 [facility] Comment on above: Order Comment: Gini nowak Type: BLOOD SPECIMENOrdering Facility: [facility] Address: [address] [place] [address] Performed By: #### 1 9123-9, , 2776-02 ####[facility] LABCLIA [id number] [id number], [place] [address] [place] Protein [Mass/Vol] 4.9 g/dL Low 6.3-8.0 [facility] Comment on above: Order Comment: Speci men Type: BLOOD SPECIMENOrdering Facility: [facility] Address: [address] [place], [place] [address] Performed By: #### 1 9123-9, 47103-6, 2776- ####[facility] LABCLIA [id number] [place] [id number] [place] Sodium [Moles/Vol] 137 mmol/L Normal 136-144 [facility] Comment on above: Order Comment: Speci men Type: BLOOD SPECIMENOrdering Facility: [facility] Address: [address] [place] [address] Performed By: #### 1 9123-9, 45224-1, 2776-02 ####[facility] LABCLIA [id number] [place] [id number] [place] Urea nitrogen [Mass/Vol] 23 mg/dL Normal 9-24 [facility] Comment on above: Order Comment: Speci men Type: BLOOD SPECIMENOrdering Facility: [facility] Address: [address] [place], [place] [address] Performed By: #### 1 9123-9, 26348-2, 2776-02 ####[facility] LABIA [id number] [address] [address] [place] ECG COMPLETEon 10-27-2024 ECG COMPLETE Normal [facility] Magnesium SerPl-mCncon 10-27 Magnesium [Mass/Vol] 2.3 mg/dL Normal 1.7-2.3 [facility] Comment on above: Order Comment: Speci men Type: BLOOD SPECIMENOrdering Facility: [facility] Address: [address] [place], [place] [address] Performed By: #### 1 9123-9, 58626-0, 2776-02 ####[facility] LABIA [id number] [address] [address] [place] PT EDon 10-27-2024 PT ED Normal [facility] PT panel Coag (PPP)on 2024 INR Coag (PPP) [Relative time] 1.3 {INR} Normal 0.9-1.3 [facility] Comment on above: Order Comment: Gini nowak Type: BLOOD SPECIMENOrdering Facility: [facility] Address: [address] [place] [address] Result Comment: Nettie min K Antagonist (VKA) Therapeutic Range: INR 2 to 3 (Target INR of 2.5)Note: For patients treated with VKA drugs, such as warfarin, the [place] 2012 Guideline recommends [...] al. Chest 2012, 141:7S-47SNishimura RA, et al. [facility] 2017, 70: 252-289 Performed By: #### 3 4528-0 ####[facility] LABIA [id number] [place] [address] [place] PT Coag (PPP) [Time] 13.5 s High 9.7-13.0 [facility] Comment on above: Order Comment: Gini nowak Type: BLOOD SPECIMENOrdering Facility: [facility] Address: [address] [place] [address] Performed By: #### 3 4528-0 ####[facility] LABIA [id number] [place] [id number] [place] Phosphate SerPl-mCncon 10-27 Phosphate [Mass/Vol] 3.7 mg/dL Normal 2.7-4.8 [facility] Comment on above: Order Comment: Speci men Type: BLOOD SPECIMENOrdering Facility: [facility] Address: [address] [place] [address] Performed By: #### 1 9123-9, 75659-9, 2777-1 ####[facility] LABCLIA [id number] [address] [address] [place] THERAPY NTon 10-27-2024 THERAPY NT Normal [facility] THERAPY NT Normal [facility] XR CHEST 2V FRONTAL/LATon XR CHEST 2V FRONTAL/LAT Normal C [facility] Basic metabolic 2000 panelon 10-26-2024 Anion gap [Moles/Vol] 9 mmol/L Normal 8-15 [facility] Comment on above: Order Comment: Speci men Type: BLOOD SPECIMENOrdering Facility: [facility] Address: [address] [place] [address] Performed By: #### 2 4321-2 ####[facility] LABCLIA [id number] [address] [address] [place] Calcium [Mass/Vol] 8.4 mg/dL Low 8.5-10.2 [facility] Comment on above: Order Comment: Speci men Type: BLOOD SPECIMENOrdering Facility: [facility] Address: [address] [place] [address] Performed By: #### 2 4321-2 ####[facility] LABCLIA [id number] [address] [address] [place] Chloride [Moles/Vol] 99 mmol/L Normal 98-107 [facility] Comment on above: Order Comment: Speci men Type: BLOOD SPECIMENOrdering Facility: [facility] Address: [address] [place] [address] Performed By: #### 2 4321-2 ####[facility] LABCLIA [id number] [place] [id number] [place] CO2 [Moles/Vol] 25 mmol/L Normal 22-30 [facility] Comment on above: Order Comment: Speci men Type: BLOOD SPECIMENOrdering Facility: [facility] Address: [address] [place] [address] Performed By: #### 2 4321-2 ####[facility] LABCLIA [id number] [facility] [place] [id number] [place] Creatinine [Mass/Vol] 1.16 mg/dL Normal 0.73-1.22 [facility] Comment on above: Order Comment: Speci men Type: BLOOD SPECIMENOrdering Facility: [facility] Address: [address] [place] [address] Performed By: #### 2 4321-2 ####[facility] LABCLIA [id number] [place] [address] [place] eGFRcr SerPlBld CKD-EPI 2020 71 mL/min/1.73m??? Normal >=60 [facility] Comment on above: Order Comment: Speci men Type: BLOOD SPECIMENOrdering Facility: [facility] Address: [address] [place] [address] Result Comment: Gurwinder mated Glomerular Filtration Rate [...] actual GFR. Performed By: #### 2 4321-2 ####[facility] LABIA [id number] [place] [id number] [place] Glucose [Mass/Vol] 142 mg/dL High 74-99 [facility] Comment on above: Order Comment: Speci men Type: BLOOD SPECIMENOrdering Facility: [facility] Address: [address] [place] [address] Result Comment: The [place] [employer] (ADA) provides guidance for cutoff [...] Standards of Medical Care in Diabetes 2016, [place] [employer]. Diabetes Care. 2016.39(Suppl 1). Performed By: #### 2 4321-2 ####[facility] LABCLIA [id number] [place] [address] [place] Potassium [Moles/Vol] 5.2 mmol/L High 3.7-5.1 [facility] Comment on above: Order Comment: Speci men Type: BLOOD SPECIMENOrdering Facility: [facility] Address: [address] [place] [address] Performed By: #### 2 4321-2 ####[facility] LABIA [id number] [place] [id number] [place] Sodium [Moles/Vol] 133 mmol/L Low 136-144 [facility] Comment on above: Order Comment: Speci men Type: BLOOD SPECIMENOrdering Facility: [facility] Address: [address] [place] [address] Performed By: #### 2 4321-2 ####[facility] LABIA [id number] [place] [id number] [place] Urea nitrogen [Mass/Vol] 21 mg/dL Normal 9-24 [facility] Comment on above: Order Comment: Speci men Type: BLOOD SPECIMENOrdering Facility: [facility] Address: [address] [place] [address] Performed By: #### 2 4321-2 ####[facility] LABIA [id number] [address] [address] [place] Anion gap [Moles/Vol] 8 mmol/L Normal 8-15 [facility] Comment on above: Order Comment: Speci men Type: BLOOD SPECIMENOrdering Facility: [facility] Address: [address] [place] [address] Performed By: #### 2 4321-2 ####[facility] LABCLIA [id number] [place] [id number] [place] Calcium [Mass/Vol] 8.5 mg/dL Normal 8.5-10.2 [facility] Comment on above: Order Comment: Speci men Type: BLOOD SPECIMENOrdering Facility: [facility] Address: [address] [place] [address] Performed By: #### 2 4321-2 ####[facility] LABCLIA [id number] [place] [address] [place] Chloride [Moles/Vol] 100 mmol/L Normal 98-107 [facility] Comment on above: Order Comment: Speci men Type: BLOOD SPECIMENOrdering Facility: [facility] Address: [address] [place] [address] Performed By: #### 2 4321-2 ####[facility] LABCLIA [id number] [place] [id number] [place] CO2 [Moles/Vol] 26 mmol/L Normal 22-30 [facility] Comment on above: Order Comment: Speci men Type: BLOOD SPECIMENOrdering Facility: [facility] Address: [address] [place] [address] Performed By: #### 2 4321-2 ####[facility] LABCLIA [id number] [place] [id number] [place] Creatinine [Mass/Vol] 1.16 mg/dL Normal 0.73-1.22 [facility] Comment on above: Order Comment: Speci men Type: BLOOD SPECIMENOrdering Facility: [facility] Address: [address] [place] [address] Performed By: #### 2 4321-2 ####[facility] LABCLIA [id number] [place] [address] [place] eGFRcr SerPlBld CKD-EPI 2020 71 mL/min/1.73m??? Normal >=60 [facility] Comment on above: Order Comment: Gini nowak Type: BLOOD SPECIMENOrdering Facility: [facility] Address: [address] [place] [address] Result Comment: Gurwinder mated Glomerular Filtration Rate [...] actual GFR. Performed By: #### 2 4321-2 ####[facility] LABCLIA [id number] [place] [address] [place] Glucose [Mass/Vol] 187 mg/dL High 74-99 [facility] Comment on above: Order Comment: Gini nowak Type: BLOOD SPECIMENOrdering Facility: [facility] Address: [address] [place] [address] Result Comment: The [place] [employer] (ADA) provides guidance for cutoff [...] Standards of Medical Care in Diabetes 2016, [place] [employer]. Diabetes Care. 2016.39(Suppl 1). Performed By: #### 2 4321-2 ####[facility] LABCLIA [id number] [place] [id number] [place] Potassium [Moles/Vol] 5.7 mmol/L High 3.7-5.1 [facility] Comment on above: Order Comment: Speci men Type: BLOOD SPECIMENOrdering Facility: [facility] Address: [address] [place] [address] Performed By: #### 2 4321-2 ####[facility] LABCLIA [id number] [place] [address] [place] Sodium [Moles/Vol] 134 mmol/L Low 136-144 [facility] Comment on above: Order Comment: Speci men Type: BLOOD SPECIMENOrdering Facility: [facility] Address: [address] [place] [address] Performed By: #### 2 4321-2 ####[facility] LABIA [id number] [place] [address] [place] Urea nitrogen [Mass/Vol] 21 mg/dL Normal 9-24 [facility] Comment on above: Order Comment: Speci men Type: BLOOD SPECIMENOrdering Facility: [facility] Address: [address] [place] [address] Performed By: #### 2 4321-2 ####[facility] LABIA [id number] [place] [address] [place] CBC panel Auto (Bld)on 10-26 Erythrocyte distribution width (RBC) [Ratio] 17.3 % High 11.5-15.0 [facility] Comment on above: Order Comment: Speci men Type: BLOOD SPECIMENOrdering Facility: [facility] Address: [address] [place] [address] Performed By: #### 5 8410-2 ####[facility] LABCLIA [id number] [place] [address] [place] Hematocrit (Bld) [Volume fraction] 24.2 % Low 39.0-51.0 [facility] Comment on above: Order Comment: Speci men Type: BLOOD SPECIMENOrdering Facility: [facility] Address: [address] [place] [address] Performed By: #### 5 8410-2 ####[facility] LABIA [id number] [place] [address] [place] Hemoglobin (Bld) [Mass/Vol] 7.8 g/dL Low 13.0-17.0 [facility] Comment on above: Order Comment: Speci men Type: BLOOD SPECIMENOrdering Facility: [facility] Address: [address] [place] [address] Performed By: #### 5 8410-2 ####[facility] [id number] [place] [address] [place] MCH (RBC) [Entitic mass] 32.8 pg Normal 26.0-34.0 [facility] Comment on above: Order Comment: Speci men Type: BLOOD SPECIMENOrdering Facility: [facility] Address: [address] [place] [address] Performed By: #### 5 8410-2 ####[facility] [id number] [place] [address] [place] MCHC (RBC) [Mass/Vol] 32.2 g/dL Normal 30.5-36.0 [facility] Comment on above: Order Comment: Speci men Type: BLOOD SPECIMENOrdering Facility: [facility] Address: [address] [place] [address] Performed By: #### 5 8410-2 ####[facility] [id number] [place] [address] [place] MCV (RBC) [Entitic vol] 101.7 fL High 80.0-100.0 C [facility] Comment on above: Order Comment: Speci men Type: BLOOD SPECIMENOrdering Facility: [facility] Address: [address] [place] [address] Performed By: #### 5 8410-2 ####[facility] LABCLIA [id number] [place] [address] [place] Nucleated RBC (Bld) [#/Vol] 10*3/uL Normal <0.01 [facility] Comment on above: Order Comment: Speci men Type: BLOOD SPECIMENOrdering Facility: [facility] Address: [address] [place] [address] Performed By: #### 5 8410-2 ####[facility] LABCLIA [id number] [place] [address] [place] Platelet mean volume (Bld) [Entitic vol] 11.7 fL Normal 9.0-12.7 [facility] Comment on above: Order Comment: Speci men Type: BLOOD SPECIMENOrdering Facility: [facility] Address: [address] [place] [address] Performed By: #### 5 8410-2 ####[facility] LABIA [id number] [place] [address] [place] Platelets (Bld) [#/Vol] 103 10*3/uL Low 150-400 [facility] Comment on above: Order Comment: Speci men Type: BLOOD SPECIMENOrdering Facility: [facility] Address: [address] [place] [address] Result Comment: No c lot detected. Performed By: #### 5 8410-2 ####[facility] LABCLIA [id number] [place] [address] [place] RBC (Bld) [#/Vol] 2.38 10*6/uL Low 4.20-6.00 [facility] Comment on above: Order Comment: Speci men Type: BLOOD SPECIMENOrdering Facility: [facility] Address: [address] [place] [address] Performed By: #### 5 8410-2 ####[facility] LABCLIA [id number] [address] [address] [place] WBC (Bld) [#/Vol] 8.82 10*3/uL Normal 3.70-11.00 [facility] Comment on above: Order Comment: Speci men Type: BLOOD SPECIMENOrdering Facility: [facility] Address: [address] [place] [address] Performed By: #### 5 8410-2 ####[facility] LABCLIA [id number] [address] [address] [place] CONSULTon 10-26-2024 CONSULT Normal [facility] metabolic 2000 panelon 10-26-2024 Albumin [Mass/Vol] 2.5 g/dL Low 3.9-4.9 [facility] Comment on above: Order Comment: Speci men Type: BLOOD SPECIMENOrdering Facility: [facility] Address: [address] [place] [address] Performed By: #### 2 4323-8, 2777, ####[facility] LABCLIA [id number] [place] [address] [place] ALP [Catalytic activity/Vol] 110 U/L Normal 38-113 [facility] Comment on above: Order Comment: Speci men Type: BLOOD SPECIMENOrdering Facility: [facility] Address: [address] [place] [address] Performed By: #### 2 4323-8, 2777, ####[facility] LABCLIA [id number] [address] [address] [place] ALT [Catalytic activity/Vol] 13 U/L Normal 10-54 [facility] Comment on above: Order Comment: Speci men Type: BLOOD SPECIMENOrdering Facility: [facility] Address: [address] [place] [address] Performed By: #### 2 4323-8, 2777-, ####[facility] LABCLIA [id number] [address] [place] [address] [place] Anion gap [Moles/Vol] 6 mmol/L Low 8-15 [facility] Comment on above: Order Comment: Speci men Type: BLOOD SPECIMENOrdering Facility: [facility] Address: [address] [place], [place] [address] Performed By: #### 2 4323-8, 2777-1, ####[facility] LABCLIA [id number] [address] [address] [place] AST [Catalytic activity/Vol] 23 U/L Normal 14-40 [facility] Comment on above: Order Comment: Speci men Type: BLOOD SPECIMENOrdering Facility: [facility] Address: [address] [place], [place] [address] Performed By: #### 2 4323-8, 2777, ####[facility] LABCLIA [id number] [place] [id number] [place] Bilirubin [Mass/Vol] 0.3 mg/dL Normal 0.2-1.3 [facility] Comment on above: Order Comment: Speci men Type: BLOOD SPECIMENOrdering Facility: [facility] Address: [address] [place], [place] [address] Performed By: #### 2 4323-8, 2777, ####[facility] LABCLIA [id number] [address] [address] [place] Calcium [Mass/Vol] 8.3 mg/dL Low 8.5-10.2 [facility] Comment on above: Order Comment: Speci men Type: BLOOD SPECIMENOrdering Facility: [facility] Address: [address] [place], [place] [address] Performed By: #### 2 4323-8, 27771, ####[facility] LABCLIA [id number] [address] [address] [place] Chloride [Moles/Vol] 101 mmol/L Normal 98-107 [facility] Comment on above: Order Comment: Speci men Type: BLOOD SPECIMENOrdering Facility: [facility] Address: [address] [place], [place] [address] Performed By: #### 2 4323-8, 2777-1, 88201-9 ####[facility] LABCLIA [id number] [place] [id number] [place] CO2 [Moles/Vol] 28 mmol/L Normal 22-30 [facility] Comment on above: Order Comment: Speci men Type: BLOOD SPECIMENOrdering Facility: [facility] Address: [address] [place] [address] Performed By: #### 2 4323-8, 2777-1, 19508-8 ####[facility] LABCLIA [id number] [place] [id number] [place] Creatinine [Mass/Vol] 1.04 mg/dL Normal 0.73-1.22 [facility] Comment on above: Order Comment: Speci men Type: BLOOD SPECIMENOrdering Facility: [facility] Address: [address] [place] [address] Performed By: #### 2 4323-8, 2777-1, 50639-4 ####[facility] LABIA [id number] [place] [id number] [place] eGFRcr SerPlBld CKD-EPI 2020 81 mL/min/1.73m??? Normal >=60 [facility] Comment on above: Order Comment: Speci men Type: BLOOD SPECIMENOrdering Facility: [facility] Address: [address] [place], [place] [address] Result Comment: Gurwinder mated Glomerular Filtration Rate [...] GFR. Performed By: #### 2 4323-8, 2776-02, ####[facility] LABCLIA [id number] [facility] [id number] [place] [address] [place] Glucose [Mass/Vol] 129 mg/dL High 74-99 [facility] Comment on above: Order Comment: Speci men Type: BLOOD SPECIMENOrdering Facility: [facility] Address: [address] [place] [address] Result Comment: The [place] [employer] (ADA) provides guidance for cutoff [...] Standards of Medical Care in Diabetes 2016, [place] [employer]. Diabetes Care. 2016.39(Suppl 1). Performed By: #### 2 4323-8, 2776-02, ####[facility] LABCLIA [id number] [facility] [address] [address] [place] Potassium [Moles/Vol] 5.5 mmol/L High 3.7-5.1 [facility] Comment on above: Order Comment: Speci men Type: BLOOD SPECIMENOrdering Facility: [facility] Address: [address] [place] [address] Performed By: #### 2 4323-8, 2776-02, ####[facility] LABCLIA [id number] [facility] [address] [place] [address] [place] Protein [Mass/Vol] 4.7 g/dL Low 6.3-8.0 [facility] Comment on above: Order Comment: Speci men Type: BLOOD SPECIMENOrdering Facility: [facility] Address: [address] [place] [address] Performed By: #### 2 4323-8, 2776-02, ####[facility] LABCLIA [id number] [place] [id number] [place] Sodium [Moles/Vol] 135 mmol/L Low 136-144 [facility] Comment on above: Order Comment: Speci men Type: BLOOD SPECIMENOrdering Facility: [facility] Address: [address] [place] [address] Performed By: #### 2 4323-8, 2776-02, ####[facility] LABIA [id number] [place] [id number] [place] Urea nitrogen [Mass/Vol] 21 mg/dL Normal 9-24 [facility] Comment on above: Order Comment: Speci men Type: BLOOD SPECIMENOrdering Facility: [facility] Address: [address] [place] [address] Performed By: #### 2 4323-8, 2776-02, ####[facility] LABIA [id number] [place] [id number] [place] ECG COMPLETEon 10-26-2024 ECG COMPLETE Normal [facility] Fact Xa PPP-aCncon Coagulation factor X activated act Coag Qn (PPP) <0.10 Normal <0.10 [facility] Comment on above: Order Comment: Speci men Type: BLOOD SPECIMENOrdering Facility: [facility] Address: [address] [place] [address] Result Comment: The recommended therapeutic range for treatment of venous and arterial thrombosis with intravenous unfractionated heparin is an anti Xa activity level of 0.3 to 0.7 IU/mL. In patients with concomitant therapy with thrombolytic agents and/or platelet glycoprotein IIb/IIIa antagonists, the recommended therapeutic range is an anti Xa activity level of 0.2 to 0.5 IU/mL. Performed By: #### 3 217-7, 57030-7 ####[facility] LABIA [id number] [place] [id number] [place] Magnesium SerPl-mCncon 10-26 Magnesium [Mass/Vol] 2.3 mg/dL Normal 1.7-2.3 [facility] Comment on above: Order Comment: Specsonja nowak Type: BLOOD SPECIMENOrdering Facility: [facility] Address: [address] [place] [address] Performed By: #### 2 4323-8, 2777-1, 44709-6 ####[facility] [id number] [address] STATES OF [facility] PT EDon 10-26-2024 PT ED Normal [facility] PT panel Coag (PPP)on 2024 INR Coag (PPP) [Relative time] 1.2 {INR} Normal 0.9-1.3 [facility] Comment on above: Order Comment: Gini nowak Type: BLOOD SPECIMENOrdering Facility: [facility] Address: [address] [place] [address] Result Comment: Nettie min K Antagonist (VKA) Therapeutic Range: INR 2 to 3 (Target INR of 2.5)Note: For patients treated with VKA drugs, such as warfarin, the [place] [employer] 2012 Guideline recommends [...] 70: 252-289 Performed By: #### 3 217-7, 70384-5 ####[facility] LABIA [id number] [address] [address] [place] PT Coag (PPP) [Time] 13.3 s High 9.7-13.0 [facility] Comment on above: Order Comment: Speci men Type: BLOOD SPECIMENOrdering Facility: [facility] Address: [address] [place] [address] Performed By: #### 3 217-7, 55872-6 ####[facility] [id number] [place] [id number] [place] Phosphate SerPl-mCncon 10-26 Phosphate [Mass/Vol] 2.7 mg/dL Normal 2.7-4.8 [facility] Comment on above: Order Comment: Speci men Type: BLOOD SPECIMENOrdering Facility: [facility] Address: [address] [place] [address] Performed By: #### 2 4323-8, 2777-1, 78326-3 ####[facility] [id number] [place] [address] [place] THERAPY NTon 10-26-2024 THERAPY NT Normal [facility] THERAPY NT Normal [facility] URINALYSIS, DIPSTICK ONLYon 10-26-2024 Bilirubin Ql (U) Negative Normal Negative [facility] Comment on above: Order Comment: Speci men Type: URINE SPECIMENOrdering Facility: [facility] Address: [address] [place] [address] Performed By: #### U A ####[facility] [id number] [place] [address] [place] Clarity (Unsp spec) Clear Normal Clear [facility] Comment on above: Order Comment: Speci men Type: URINE SPECIMENOrdering Facility: [facility] Address: [address] [place], [place] [address] Performed By: #### U A ####[facility] LABCLIA [id number] [address], [facility]95 [place] Color (U) Yellow Normal Yellow [facility] Comment on above: Order Comment: Speci men Type: URINE SPECIMENOrdering Facility: [facility] Address: [address] [place] [address] Performed By: #### U A ####[facility] LABCLIA [id number] [address], [facility]95 [place] Glucose Test strip (U) [Mass/Vol] Negative Normal Negative [facility] Comment on above: Order Comment: Speci men Type: URINE SPECIMENOrdering Facility: [facility] Address: [address] [place] [address] Performed By: #### U A ####[facility] LABCLIA [id number] [address], [place] [address] [place] Hemoglobin Ql (U) Negative Normal Negative [facility] Comment on above: Order Comment: Speci men Type: URINE SPECIMENOrdering Facility: [facility] Address: [address] [place] [address] Performed By: #### U A ####[facility] LABCLIA [id number] [place] [id number] [place] Ketones Ql (U) Negative Normal Negative [facility] Comment on above: Order Comment: Speci men Type: URINE SPECIMENOrdering Facility: [facility] Address: [address] [place] [address] Performed By: #### U A ####[facility] LABCLIA [id number] [place] [id number] [place] Leukocyte esterase Test strip Ql (U) Negative Normal Negative [facility] Comment on above: Order Comment: Speci men Type: URINE SPECIMENOrdering Facility: [facility] Address: [address] [place] [address] Performed By: #### U A ####[facility] LABCLIA [id number] [place] [address] [place] Nitrite Ql (U) Negative Normal Negative [facility] Comment on above: Order Comment: Speci men Type: URINE SPECIMENOrdering Facility: [facility] Address: [address] [place] [address] Performed By: #### U A ####[facility] LABCLIA [id number] [place] [address] [place] pH (U) 7.0 [pH] Normal 5.0-8.0 [facility] Comment on above: Order Comment: Speci men Type: URINE SPECIMENOrdering Facility: [facility] Address: [address] [place] [address] Performed By: #### U A ####[facility] LABIA [id number] [place] [address] [place] Protein (U) [Mass/Vol] Negative Normal Negative [facility] Comment on above: Order Comment: Speci men Type: URINE SPECIMENOrdering Facility: [facility] Address: [address] [place] [address] Performed By: #### U A ####[facility] LABIA [id number] [place] [address] [place] Specific gravity (U) [Rel density] 1.012 Normal 1.005-1.030 [facility] Comment on above: Order Comment: Speci men Type: URINE SPECIMENOrdering Facility: [facility] Address: [address] [place] [address] Performed By: #### U A ####[facility] LABIA [id number] [place] [address] [place] Urobilinogen Ql (U) 0.2 EU/dL Normal 0.2-1.0 EU/dL [facility] Comment on above: Order Comment: Speci men Type: URINE SPECIMENOrdering Facility: [facility] Address: [address] [place] [address] Performed By: #### U A ####[facility] LABCLIA [id number] [place] [id number] [place] XR CHEST 1V FRONTAL PORTon 0 10-26-2024 XR CHEST 1V FRONTAL PORT Normal [facility] CASE MANAGEMon 10-25-2024 CASE MANAGEM Normal [facility] CBC panel Auto (Bld)on 10-25 Erythrocyte distribution width (RBC) [Ratio] 17.4 % High 11.5-15.0 [facility] Comment on above: Order Comment: Speci men Type: BLOOD SPECIMENOrdering Facility: [facility] Address: [address] [place] [address] Performed By: #### 5 8410-2 ####[facility] LABCLIA [id number] [place] [address] [place] Hematocrit (Bld) [Volume fraction] 22.5 % Low 39.0-51.0 [facility] Comment on above: Order Comment: Speci men Type: BLOOD SPECIMENOrdering Facility: [facility] Address: [address] [place] [address] Performed By: #### 5 8410-2 ####[facility] LABCLIA [id number] [place] [id number] [place] Hemoglobin (Bld) [Mass/Vol] 7.2 g/dL Low 13.0-17.0 [facility] Comment on above: Order Comment: Speci men Type: BLOOD SPECIMENOrdering Facility: [facility] Address: [address] [place] [address] Performed By: #### 5 8410-2 ####[facility] LABCLIA [id number] [place] [phone] [place] MCH (RBC) [Entitic mass] 32.3 pg Normal 26.0-34.0 [facility] Comment on above: Order Comment: Speci men Type: BLOOD SPECIMENOrdering Facility: [facility] Address: [address] [place] [address] Performed By: #### 5 8410-2 ####[facility] LABIA [id number] [place] [address] [place] MCHC (RBC) [Mass/Vol] 32.0 g/dL Normal 30.5-36.0 [facility] Comment on above: Order Comment: Speci men Type: BLOOD SPECIMENOrdering Facility: [facility] Address: [address] [place] [address] Performed By: #### 5 8410-2 ####[facility] LABIA [id number] [place] [address] [place] MCV (RBC) [Entitic vol] 100.9 fL High 80.0-100.0 C [facility] Comment on above: Order Comment: Speci men Type: BLOOD SPECIMENOrdering Facility: [facility] Address: [address] [place] [address] Performed By: #### 5 8410-2 ####[facility] LABIA [id number] [place] [address] [place] Nucleated RBC (Bld) [#/Vol] 10*3/uL Normal <0.01 [facility] Comment on above: Order Comment: Speci men Type: BLOOD SPECIMENOrdering Facility: [facility] Address: [address] [place] [address] Performed By: #### 5 8410-2 ####[facility] LABIA [id number] [place] [address] [place] Platelet mean volume (Bld) [Entitic vol] 12.4 fL Normal 9.0-12.7 [facility] Comment on above: Order Comment: Speci men Type: BLOOD SPECIMENOrdering Facility: [facility] Address: [address] [place] [address] Performed By: #### 5 8410-2 ####[facility] LABCLIA [id number] [address] [address] [place] Platelets (Bld) [#/Vol] 90 10*3/uL Low 150-400 C [facility] Comment on above: Order Comment: Speci men Type: BLOOD SPECIMENOrdering Facility: [facility] Address: [address] [place] [address] Performed By: #### 5 8410-2 ####[facility] LABIA [id number] [place] [id number] [place] RBC (Bld) [#/Vol] 2.23 10*6/uL Low 4.20-6.00 [facility] Comment on above: Order Comment: Speci men Type: BLOOD SPECIMENOrdering Facility: [facility] Address: [address] [place] [address] Performed By: #### 5 8410-2 ####[facility] LABIA [id number] [place] [phone] [place] WBC (Bld) [#/Vol] 5.94 10*3/uL Normal 3.70-11.00 [facility] Comment on above: Order Comment: Speci men Type: BLOOD SPECIMENOrdering Facility: [facility] Address: [address] [place] [address] Performed By: #### 5 8410-2 ####[facility] LABIA [id number] [place] [phone] [facility] Comprehensive metabolic 2000 panelon 10-25-2024 Albumin [Mass/Vol] 2.3 g/dL Low 3.9-4.9 [facility] Comment on above: Order Comment: Speci men Type: BLOOD SPECIMENOrdering Facility: [facility] Address: [address] [place] [address] Performed By: #### 2 4323-8, 2777-1, 43850-5 ####[facility] LABCLIA [id number] [address] [place] [address] [place] ALP [Catalytic activity/Vol] 100 U/L Normal 38-113 [facility] Comment on above: Order Comment: Speci men Type: BLOOD SPECIMENOrdering Facility: [facility] Address: [address] [place] [address] Performed By: #### 2 4323-8, 27708-08, ####[facility] LABCLIA [id number] [address] [place] [address] [place] ALT [Catalytic activity/Vol] 14 U/L Normal 10-54 [facility] Comment on above: Order Comment: Speci men Type: BLOOD SPECIMENOrdering Facility: [facility] Address: [address] [place] [address] Performed By: #### 2 4323-8, 27708-08, ####[facility] LABCLIA [id number] [address] [place] [address] [place] Anion gap [Moles/Vol] 8 mmol/L Normal 8-15 [facility] Comment on above: Order Comment: Speci men Type: BLOOD SPECIMENOrdering Facility: [facility] Address: [address] [place] [address] Performed By: #### 2 4323-8, 27708-08, ####[facility] LABCLIA [id number] [address] [place] [address] [place] AST [Catalytic activity/Vol] 26 U/L Normal 14-40 [facility] Comment on above: Order Comment: Speci men Type: BLOOD SPECIMENOrdering Facility: [facility] Address: [address] [place] [address] Performed By: #### 2 4323-8, 27708-08, ####[facility] LABCLIA [id number] [address] [place] [address] [place] Bilirubin [Mass/Vol] 0.2 mg/dL Normal 0.2-1.3 [facility] Comment on above: Order Comment: Speci men Type: BLOOD SPECIMENOrdering Facility: [facility] Address: [address] [place] [address] Performed By: #### 2 4323-8, 2776-02, ####[facility] LABCLIA [id number] [place] [address] [place] Calcium [Mass/Vol] 8.0 mg/dL Low 8.5-10.2 [facility] Comment on above: Order Comment: Speci men Type: BLOOD SPECIMENOrdering Facility: [facility] Address: [address] [place] [address] Performed By: #### 2 4323-8, 2776-02, ####[facility] LABCLIA [id number] [place] [address] [place] Chloride [Moles/Vol] 100 mmol/L Normal 98-107 [facility] Comment on above: Order Comment: Speci men Type: BLOOD SPECIMENOrdering Facility: [facility] Address: [address] [place] [address] Performed By: #### 2 4323-8, 2776-02, ####[facility] LABCLIA [id number] [place] [phone] [place] CO2 [Moles/Vol] 26 mmol/L Normal 22-30 [facility] Comment on above: Order Comment: Speci men Type: BLOOD SPECIMENOrdering Facility: [facility] Address: [address] [place] [address] Performed By: #### 2 4323-8, 2776-02, ####[facility] LABCLIA [id number] [place] [phone] [place] Creatinine [Mass/Vol] 1.39 mg/dL High 0.73-1.22 [facility] Comment on above: Order Comment: Gini nowak Type: BLOOD SPECIMENOrdering Facility: [facility] Address: [address] [place], [place] [address] Performed By: #### 2 4323-8, 277-, ####[facility] LABCLIA [id number] [place] [phone] [place] eGFRcr SerPlBld CKD-EPI 2020 57 mL/min/1.73m??? Low >=60 [facility] Comment on above: Order Comment: Gini nowak Type: BLOOD SPECIMENOrdering Facility: [facility] Address: [address] [place] [address] Result Comment: Gurwinder mated Glomerular Filtration Rate [...] GFR. Performed By: #### 2 4323-8, 2776-02, ####[facility] LABCLIA [id number] [place] [phone] [place] Glucose [Mass/Vol] 138 mg/dL High 74-99 [facility] Comment on above: Order Comment: Gini nowak Type: BLOOD SPECIMENOrdering Facility: [facility] Address: [address] [place] [address] Result Comment: The [place] [employer] (ADA) provides guidance for cutoff [...] Standards of Medical Care in Diabetes 2016, [place] [employer]. Diabetes Care. 2016.39(Suppl 1). Performed By: #### 2 4323-8, 2776-02, ####[facility] LABCLIA [id number] [address] [address] [place] Potassium [Moles/Vol] 4.9 mmol/L Normal 3.7-5.1 [facility] Comment on above: Order Comment: Speci men Type: BLOOD SPECIMENOrdering Facility: [facility] Address: [address] [place] [address] Performed By: #### 2 4323-8, 2776-02, ####[facility] LABCLIA [id number] [address] [address] [place] Protein [Mass/Vol] 4.5 g/dL Low 6.3-8.0 [facility] Comment on above: Order Comment: Speci men Type: BLOOD SPECIMENOrdering Facility: [facility] Address: [address] [place] [address] Performed By: #### 2 4323-8, 2776-02, ####[facility] LABCLIA [id number] [address] [address] [place] Sodium [Moles/Vol] 134 mmol/L Low 136-144 [facility] Comment on above: Order Comment: Speci men Type: BLOOD SPECIMENOrdering Facility: [facility] Address: [address] [place] [address] Performed By: #### 2 4323-8, 2776-02, ####[facility] LABCLIA [id number] [address] [address] [place] Urea nitrogen [Mass/Vol] 20 mg/dL Normal 9-24 [facility] Comment on above: Order Comment: Speci men Type: BLOOD SPECIMENOrdering Facility: [facility] Address: [address] [place] [address] Performed By: #### 2 4323-8, 27708-08, ####[facility] LABCLIA [id number] [address] [address] [place] ECG COMPLETEon 10-25-2024 ECG COMPLETE Normal [facility] Magnesium SerPl-mCncon 10-25 Magnesium [Mass/Vol] 2.1 mg/dL Normal 1.7-2.3 [facility] Comment on above: Order Comment: Speci men Type: BLOOD SPECIMENOrdering Facility: [facility] Address: [address] [place] [id number] Performed By: #### 2 4323-8, 27708-08, ####[facility] LABIA [id number] [place] [id number] [place] NURSING PROGon 10-25-2024 NURSING PROG Normal [facility] NURSING PROG Normal [facility] NURSING PROG Normal [facility] Phosphate SerPl-ncon 10-25 Phosphate [Mass/Vol] 2.8 mg/dL Normal 2.7-4.8 [facility] Comment on above: Order Comment: Speci men Type: BLOOD SPECIMENOrdering Facility: [facility] Address: [address] [address] Performed By: #### 2 4323-8, 27708-08, ####[facility] LABIA [id number] [address] [address] [place] THERAPY NTon 10-25-2024 THERAPY NT Normal [facility] THERAPY NT Normal [facility] XR CHEST 1V FRONTAL PORTon 0 10-25-2024 XR CHEST 1V FRONTAL PORT Normal [facility] XR CHEST 1V FRONTAL PORT Normal [facility] ARTERIAL BLOOD GASESon 10-24 Base excess Calc (Bld) [Moles/Vol] 4 mmol/L High 0-2 [facility] Comment on above: Order Comment: Speci men Type: ARTERIAL BLOOD SPECIMENOrdering Facility: [facility] Address: [address] [place] [address] Performed By: #### A LLBG ####[facility] LABIA [id number] [place] [address] [place] Body temperature 99.14 [degF] Normal [facility] Comment on above: Order Comment: Speci men Type: ARTERIAL BLOOD SPECIMENOrdering Facility: [facility] Address: [address] [place] [address] Performed By: #### A LLBG ####[facility] LABIA [id number] [place] [address] [place] Calcium.ionized (Bld) [Mass/Vol] 1.17 mmol/L Normal 1.08-1.30 [facility] Comment on above: Order Comment: Speci men Type: ARTERIAL BLOOD SPECIMENOrdering Facility: [facility] Address: [address] [place] [address] Performed By: #### A LLBG ####[facility] [id number] [place] [address] [place] Calcium.ionized adjusted to pH 7.4 (BldA) [Moles/Vol] 1.16 mmol/L Normal 1.08-1.30 [facility] Comment on above: Order Comment: Speci men Type: ARTERIAL BLOOD SPECIMENOrdering Facility: [facility] Address: [address] [place] [address] Performed By: #### A LLBG ####[facility] [id number] [place] [address] [place] Carboxyhemoglobin (BldA) [Mass fraction] 1.0 % Normal 0.0-2.0 [facility] Comment on above: Order Comment: Speci men Type: ARTERIAL BLOOD SPECIMENOrdering Facility: [facility] Address: [address] [place] [address] Result Comment: Carb oxyhemoglobin Reference Range for Smokers: 2.0-8.0% Performed By: #### A LLBG ####[facility] LABCLIA [id number] [place] [address] [place] CO2 (Bld) [Partial pressure] 49 mm Hg High 36-46 [facility] Comment on above: Order Comment: Speci men Type: ARTERIAL BLOOD SPECIMENOrdering Facility: [facility] Address: [address] [place] [address] Performed By: #### A LLBG ####[facility] LABCLIA [id number] [address] [place] CO2 adjusted to patient's actual temperature (Bld) [Partial pressure] 49 mmHg High 36-46 [facility] Comment on above: Order Comment: Speci men Type: ARTERIAL BLOOD SPECIMENOrdering Facility: [facility] Address: [address] [place] [address] Performed By: #### A LLBG ####[facility] LABCLIA [id number] [place] [address] [place] Glucose [Mass/Vol] 136 mg/dL High 60-105 [facility] Comment on above: Order Comment: Speci men Type: ARTERIAL BLOOD SPECIMENOrdering Facility: [facility] Address: [address] [place] [address] Performed By: #### A LLBG ####[facility] LABCLIA [id number] [place] [id number] [place] HCO3 (Bld) [Moles/Vol] 29 mmol/L High 22-26 [facility] Comment on above: Order Comment: Speci men Type: ARTERIAL BLOOD SPECIMENOrdering Facility: [facility] Address: [address] [place] [address] Performed By: #### A LLBG ####[facility] LABCLIA [id number] [place] [address] [place] Hematocrit (Bld) [Volume fraction] 22.6 % Low 39.0-51.0 [facility] Comment on above: Order Comment: Speci men Type: ARTERIAL BLOOD SPECIMENOrdering Facility: [facility] Address: [address] [place] [address] Performed By: #### A LLBG ####[facility] LABCLIA [id number] [place] [address] [place] Hemoglobin (Bld) [Mass/Vol] 7.2 g/dL Low 13.0-17.0 [facility] Comment on above: Order Comment: Speci men Type: ARTERIAL BLOOD SPECIMENOrdering Facility: [facility] Address: [address] [place] [address] Performed By: #### A LLBG ####[facility] LABCLIA [id number] [place] [address] [place] Lactate [Moles/Vol] 1.1 mmol/L Normal 0.5-2.2 [facility] Comment on above: Order Comment: Speci men Type: ARTERIAL BLOOD SPECIMENOrdering Facility: [facility] Address: [address] [place] [address] Performed By: #### A LLBG ####[facility] LABCLIA [id number] [place] [address] [place] LITERS 3 Liters/min Normal [facility] Comment on above: Order Comment: Speci men Type: ARTERIAL BLOOD SPECIMENOrdering Facility: [facility] Address: [address] [place] [address] Performed By: #### A LLBG ####[facility] LABCLIA [id number] [place] [address] [place] Methemoglobin (Bld) [Mass fraction] 1.5 % Normal 0.0-1.5 [facility] Comment on above: Order Comment: Speci men Type: ARTERIAL BLOOD SPECIMENOrdering Facility: [facility] Address: [address] [place] [address] Performed By: #### A LLBG ####[facility] LABCLIA [id number] [place] [id number] [place] O2 THERAPY NC = Nasal Cannula Normal [facility] Comment on above: Order Comment: Speci men Type: ARTERIAL BLOOD SPECIMENOrdering Facility: [facility] Address: [address] [place] [address] Performed By: #### A LLBG ####[facility] LABCLIA [id number] [address] [address] [place] Oxygen (Bld) [Partial pressure] 143 mm Hg High 85-95 [facility] Comment on above: Order Comment: Speci men Type: ARTERIAL BLOOD SPECIMENOrdering Facility: [facility] Address: [address] [place] [address] Performed By: #### A LLBG ####[facility] LABCLIA [id number] [place] [id number] [place] Oxygen adjusted to patient's actual temperature (Bld) [Partial pressure] 145 mmHg High 85-95 [facility] Comment on above: Order Comment: Speci men Type: ARTERIAL BLOOD SPECIMENOrdering Facility: [facility] Address: [address] [place] [address] Performed By: #### A LLBG ####[facility] LABCLIA [id number] [place] [id number] [place] Oxyhemoglobin (BldA) [Mass fraction] 97 % Normal 95-98 [facility] Comment on above: Order Comment: Speci men Type: ARTERIAL BLOOD SPECIMENOrdering Facility: [facility] Address: [address] [place] [address] Performed By: #### A LLBG ####[facility] LABCLIA [id number] [address] [address] [place] pH (Bld) 7.39 [pH] Normal 7.35-7.45 [facility] Comment on above: Order Comment: Speci men Type: ARTERIAL BLOOD SPECIMENOrdering Facility: [facility] Address: [address] [place] [address] Performed By: #### A LLBG ####[facility] LABCLIA [id number] [address] [address] [place] pH adjusted to patient's actual temperature (Bld) 7.39 Normal 7.35-7.45 [facility] Comment on above: Order Comment: Speci men Type: ARTERIAL BLOOD SPECIMENOrdering Facility: [facility] Address: [address] [place] [address] Performed By: #### A LLBG ####[facility] LABIA [id number] [place] [address] [place] Potassium [Moles/Vol] 4.7 mmol/L Normal 3.5-5.0 [facility] Comment on above: Order Comment: Speci men Type: ARTERIAL BLOOD SPECIMENOrdering Facility: [facility] Address: [address] [place] [address] Performed By: #### A LLBG ####[facility] LABIA [id number] [place] [address] [place] Sodium [Moles/Vol] 132 mmol/L Low 136-144 [facility] Comment on above: Order Comment: Speci men Type: ARTERIAL BLOOD SPECIMENOrdering Facility: [facility] Address: [address] [place] [address] Performed By: #### A LLBG ####[facility] LABCLIA [id number] [place] [id number] [place] Base excess Calc (Bld) [Moles/Vol] 2 mmol/L Normal 0-2 [facility] Comment on above: Order Comment: Speci men Type: ARTERIAL BLOOD SPECIMENOrdering Facility: [facility] Address: [address] [place] [address] Performed By: #### A LLBG ####[facility] LABCLIA [id number] [place] [address] [place] Body temperature 98.6 [degF] Normal [facility] Comment on above: Order Comment: Speci men Type: ARTERIAL BLOOD SPECIMENOrdering Facility: [facility] Address: [address] [place] [address] Performed By: #### A LLBG ####[facility] LABIA [id number] [place] [address] [place] Calcium.ionized (Bld) [Mass/Vol] 1.17 mmol/L Normal 1.08-1.30 [facility] Comment on above: Order Comment: Speci men Type: ARTERIAL BLOOD SPECIMENOrdering Facility: [facility] Address: [address] [place] [address] Performed By: #### A LLBG ####[facility] [id number] [place] [address] [place] Calcium.ionized adjusted to pH 7.4 (BldA) [Moles/Vol] 1.18 mmol/L Normal 1.08-1.30 [facility] Comment on above: Order Comment: Speci men Type: ARTERIAL BLOOD SPECIMENOrdering Facility: [facility] Address: [address] [place] [address] Performed By: #### A LLBG ####[facility] LABIA [id number] [place] [address] [place] Carboxyhemoglobin (BldA) [Mass fraction] 0.6 % Normal 0.0-2.0 [facility] Comment on above: Order Comment: Speci men Type: ARTERIAL BLOOD SPECIMENOrdering Facility: [facility] Address: [address] [place] [address] Result Comment: Carb oxyhemoglobin Reference Range for Smokers: 2.0-8.0% Performed By: #### A LLBG ####[facility] LABCLIA [id number] [address] [place] [address] [place] CO2 (Bld) [Partial pressure] 42 mm Hg Normal 36-46 [facility] Comment on above: Order Comment: Speci men Type: ARTERIAL BLOOD SPECIMENOrdering Facility: [facility] Address: [address] [place] [address] Performed By: #### A LLBG ####[facility] LABCLIA [id number] [address], [facility]95 [place] Glucose [Mass/Vol] 215 mg/dL High 60-105 [facility] Comment on above: Order Comment: Speci men Type: ARTERIAL BLOOD SPECIMENOrdering Facility: [facility] Address: [address] [place] [address] Performed By: #### A LLBG ####[facility] LABCLIA [id number] [place] [id number] [place] HCO3 (Bld) [Moles/Vol] 26 mmol/L Normal 22-26 [facility] Comment on above: Order Comment: Speci men Type: ARTERIAL BLOOD SPECIMENOrdering Facility: [facility] Address: [address] [place] [address] Performed By: #### A LLBG ####[facility] LABCLIA [id number] [address], [facility]95 [place] Hematocrit (Bld) [Volume fraction] 25.1 % Low 39.0-51.0 [facility] Comment on above: Order Comment: Speci men Type: ARTERIAL BLOOD SPECIMENOrdering Facility: [facility] Address: [address] [place], [place] [address] Performed By: #### A LLBG ####[facility] LABCLIA [id number] [place] [id number] [place] Hemoglobin (Bld) [Mass/Vol] 8.1 g/dL Low 13.0-17.0 [facility] Comment on above: Order Comment: Speci men Type: ARTERIAL BLOOD SPECIMENOrdering Facility: [facility] Address: [address] [place] [address] Performed By: #### A LLBG ####[facility] LABCLIA [id number] [address], [facility]95 [place] Lactate [Moles/Vol] 1.9 mmol/L Normal 0.5-2.2 [facility] Comment on above: Order Comment: Speci men Type: ARTERIAL BLOOD SPECIMENOrdering Facility: [facility] Address: [address] [place] [address] Performed By: #### A LLBG ####[facility] LABCLIA [id number] [place] [address] [place] LITERS 4 Liters/min Normal [facility] Comment on above: Order Comment: Speci men Type: ARTERIAL BLOOD SPECIMENOrdering Facility: [facility] Address: [address] [place] [address] Performed By: #### A LLBG ####[facility] LABCLIA [id number] [place] [id number] [place] Methemoglobin (Bld) [Mass fraction] 0.5 % Normal 0.0-1.5 [facility] Comment on above: Order Comment: Speci men Type: ARTERIAL BLOOD SPECIMENOrdering Facility: [facility] Address: [address] [place] [address] Performed By: #### A LLBG ####[facility] LABCLIA [id number] [address], [facility]95 [place] O2 THERAPY NC = Nasal Cannula Normal [facility] Comment on above: Order Comment: Speci men Type: ARTERIAL BLOOD SPECIMENOrdering Facility: [facility] Address: [address] [place] [address] Performed By: #### A LLBG ####[facility] LABCLIA [id number] [place] [id number] [place] Oxygen (Bld) [Partial pressure] 126 mm Hg High 85-95 [facility] Comment on above: Order Comment: Speci men Type: ARTERIAL BLOOD SPECIMENOrdering Facility: [facility] Address: [address] [place] [address] Performed By: #### A LLBG ####[facility] LABCLIA [id number] [address] [address] [place] Oxyhemoglobin (BldA) [Mass fraction] 96 % Normal 95-98 [facility] Comment on above: Order Comment: Speci men Type: ARTERIAL BLOOD SPECIMENOrdering Facility: [facility] Address: [address] [place] [address] Performed By: #### A LLBG ####[facility] LABCLIA [id number] [place] [id number] [place] pH (Bld) 7.42 [pH] Normal 7.35-7.45 [facility] Comment on above: Order Comment: Speci men Type: ARTERIAL BLOOD SPECIMENOrdering Facility: [facility] Address: [address] [place] [address] Performed By: #### A LLBG ####[facility] LABIA [id number] [place] [id number] [place] Potassium [Moles/Vol] 4.4 mmol/L Normal 3.5-5.0 [facility] Comment on above: Order Comment: Speci men Type: ARTERIAL BLOOD SPECIMENOrdering Facility: [facility] Address: [address] [place], [place] [address] Performed By: #### A LLBG ####[facility] LABCLIA [id number] [place] [id number] [place] Sodium [Moles/Vol] 132 mmol/L Low 136-144 [facility] Comment on above: Order Comment: Speci men Type: ARTERIAL BLOOD SPECIMENOrdering Facility: [facility] Address: [address] [place] [address] Performed By: #### A LLBG ####[facility] LABIA [id number] [place] [address] [place] Base excess Calc (Bld) [Moles/Vol] 4 mmol/L High 0-2 [facility] Comment on above: Order Comment: Speci men Type: ARTERIAL BLOOD SPECIMENOrdering Facility: [facility] Address: [address] [place] [address] Performed By: #### A LLBG ####[facility] LABIA [id number] [place] [address] [place] Calcium.ionized adjusted to pH 7.4 (BldA) [Moles/Vol] 1.19 mmol/L Normal 1.08-1.30 [facility] Comment on above: Order Comment: Speci men Type: ARTERIAL BLOOD SPECIMENOrdering Facility: [facility] Address: [address] [place] [address] Performed By: #### A LLBG ####[facility] [id number] [place] [address] [place] Carboxyhemoglobin (BldA) [Mass fraction] <0.0 Low 0.0-2.0 [facility] Comment on above: Order Comment: Speci men Type: ARTERIAL BLOOD SPECIMENOrdering Facility: [facility] Address: [address] [place] [address] Result Comment: Carb oxyhemoglobin Reference Range for Smokers: 2.0-8.0% Performed By: #### A LLBG ####[facility] LABIA [id number] [place] [address] [place] CO2 (Bld) [Partial pressure] 45 mm Hg Normal 36-46 [facility] Comment on above: Order Comment: Speci men Type: ARTERIAL BLOOD SPECIMENOrdering Facility: [facility] Address: [address] [place] [address] Performed By: #### A LLBG ####[facility] LABIA [id number] [address] [place] [address] [place] CO2 adjusted to patient's actual temperature (Bld) [Partial pressure] 44 mmHg Normal 36-46 [facility] Comment on above: Order Comment: Speci men Type: ARTERIAL BLOOD SPECIMENOrdering Facility: [facility] Address: [address] [place] [address] Performed By: #### A LLBG ####[facility] LABCLIA [id number] [facility] [address] [place] [address] [place] Glucose [Mass/Vol] 264 mg/dL High 60-105 [facility] Comment on above: Order Comment: Speci men Type: ARTERIAL BLOOD SPECIMENOrdering Facility: [facility] Address: [address] [place] [address] Performed By: #### A LLBG ####[facility] LABCLIA [id number] [facility] [address], [facility]95 [place] Hematocrit (Bld) [Volume fraction] 24.8 % Low 39.0-51.0 [facility] Comment on above: Order Comment: Speci men Type: ARTERIAL BLOOD SPECIMENOrdering Facility: [facility] Address: [address] [place] [address] Performed By: #### A LLBG ####[facility] LABCLIA [id number] [facility] [address] [place] [address] [place] Hemoglobin (Bld) [Mass/Vol] 8.0 g/dL Low 13.0-17.0 [facility] Comment on above: Order Comment: Speci men Type: ARTERIAL BLOOD SPECIMENOrdering Facility: [facility] Address: [address] [place] [address] Performed By: #### A LLBG ####[facility] LABCLIA [id number] [facility] [address] [place] [address] [place] Methemoglobin (Bld) [Mass fraction] 1.3 % Normal 0.0-1.5 [facility] Comment on above: Order Comment: Speci men Type: ARTERIAL BLOOD SPECIMENOrdering Facility: [facility] Address: [address] [place], [place] [address] Performed By: #### A LLBG ####[facility] LABCLIA [id number] [address] [address] [place] Oxygen (Bld) [Partial pressure] 129 mm Hg High 85-95 [facility] Comment on above: Order Comment: Speci men Type: ARTERIAL BLOOD SPECIMENOrdering Facility: [facility] Address: [address] [place] [address] Performed By: #### A LLBG ####[facility] LABCLIA [id number] [place] [id number] [place] Oxygen adjusted to patient's actual temperature (Bld) [Partial pressure] 127 mmHg High 85-95 [facility] Comment on above: Order Comment: Speci men Type: ARTERIAL BLOOD SPECIMENOrdering Facility: [facility] Address: [address] [place] [address] Performed By: #### A LLBG ####[facility] LABCLIA [id number] [place] [address] [place] Oxyhemoglobin (BldA) [Mass fraction] 96 % Normal 95-98 [facility] Comment on above: Order Comment: Speci men Type: ARTERIAL BLOOD SPECIMENOrdering Facility: [facility] Address: [address] [place] [address] Performed By: #### A LLBG ####[facility] LABCLIA [id number] [address] [address] [place] pH (Bld) 7.42 [pH] Normal 7.35-7.45 [facility] Comment on above: Order Comment: Speci men Type: ARTERIAL BLOOD SPECIMENOrdering Facility: [facility] Address: [address] [place], [place] [address] Performed By: #### A LLBG ####[facility] LABCLIA [id number] [place] [address] [place] pH adjusted to patient's actual temperature (Bld) 7.42 Normal 7.35-7.45 [facility] Comment on above: Order Comment: Speci men Type: ARTERIAL BLOOD SPECIMENOrdering Facility: [facility] Address: [address] [place] [address] Performed By: #### A LLBG ####[facility] LABIA [id number] [place] [address] [place] Potassium [Moles/Vol] 4.5 mmol/L Normal 3.5-5.0 [facility] Comment on above: Order Comment: Speci men Type: ARTERIAL BLOOD SPECIMENOrdering Facility: [facility] Address: [address] [place] [address] Performed By: #### A LLBG ####[facility] LABIA [id number] [place] [address] [place] Sodium [Moles/Vol] 132 mmol/L Low 136-144 [facility] Comment on above: Order Comment: Speci men Type: ARTERIAL BLOOD SPECIMENOrdering Facility: [facility] Address: [address] [place] [address] Performed By: #### A LLBG ####[facility] LABIA [id number] [place] [address] [place] Albumin Fld-[facility] 5 Albumin (Body fld) [Mass/Vol] 0.7 g/dL Normal See Comment [facility] Comment on above: Order Comment: Speci men Type: SPECIMEN FROM PLEURA OBTAINED BY THORACENTESISOrdering Facility: [facility] Address: [address] [place] [address] Result Comment: Body Fluid Albumin may be [...] document C49A. ANDREY Bright: Clinical Laboratory Standards [place]: 2007.2. Rose FLEMING. Serum to ascites albumin gradient. UpToDate. 2015. Accessed on May 22, 2015. Performed By: #### 2 881-1, 84466-5, 2529-6, 1747-5 ####[facility] LABCLIA [id number] [place] [address] [place] Albumin SerPl-mCncon 16-2 025 Albumin [Mass/Vol] 2.8 g/dL Low 3.9-4.9 [facility] Comment on above: Order Comment: Speci men Type: BLOOD SPECIMENOrdering Facility: [facility] Address: [address] [place] [address] Performed By: #### 1 751-7, 2885-2, 2093-3 ####[facility] LABCLIA [id number] [place] [address] [place] BODY FLUID CELL COUNTon - Clarity (Unsp spec) Not Indicated Normal Clear [facility] Comment on above: Order Comment: Speci men Type: SPECIMEN FROM PLEURA OBTAINED BY THORACENTESISOrdering Facility: [facility] Address: [address] [place] [address] Performed By: #### C CBF, [id number] ####[facility] LABCLIA [id number] [place] [address] [place] Color (Body fld) Not Indicated Normal Yellow [facility] Comment on above: Order Comment: Speci men Type: SPECIMEN FROM PLEURA OBTAINED BY THORACENTESISOrdering Facility: [facility] Address: [address] [place] [address] Performed By: #### C CBF, [id number] ####[facility] LABCLIA [id number] [facility] [address] [place] RBC Manual cnt (Body fld) [#/Vol] <2000 Normal <2000 [facility] Comment on above: Order Comment: Speci men Type: SPECIMEN FROM PLEURA OBTAINED BY THORACENTESISOrdering Facility: [facility] Address: [address] [place] [address] Performed By: #### C CBF, [id number] ####[facility] LABCLIA [id number] [facility] [place] [address] [place] Specimen source Nom (Body fld) Pleural Cavity, Right Normal [facility] Comment on above: Order Comment: Speci men Type: SPECIMEN FROM PLEURA OBTAINED BY THORACENTESISOrdering Facility: [facility] Address: [address] [place] [address] Performed By: #### C CBF, [id number] ####[facility] LABCLIA [id number] [facility] [address] [place] WBC Manual cnt (Body fld) [#/Vol] 28 /uL Normal <1000 [facility] Comment on above: Order Comment: Speci men Type: SPECIMEN FROM PLEURA OBTAINED BY THORACENTESISOrdering Facility: [facility] Address: [address] [place] [address] Performed By: #### C CBF, [id number] ####[facility] LABCLIA [id number] [facility] [place] [address] [place] Bacteria Fld Culton 10-25-19 25 Bacteria identified Cx Nom (Body fld) CULTURE, BODY FLD: No growth GRAM STAIN: No organisms seen No Polymorphonuclear Leukocytes Gram stain performed on cytospun specimen. Gram stain from primary specimen Normal [facility] Comment on above: Performed By: #### 6 11-4 ####[facility] LABCLIA [id number] [address] [address] [place] Basic metabolic 2000 panelon 10-24-2024 Anion gap [Moles/Vol] 7 mmol/L Low 8-15 [facility] Comment on above: Order Comment: Speci men Type: BLOOD SPECIMENOrdering Facility: [facility] Address: [address] [place], [place] [address] Performed By: #### 2 4321-2, 40425-3 ####[facility] LABCLIA [id number] [address] [address] [place] Calcium [Mass/Vol] 8.1 mg/dL Low 8.5-10.2 [facility] Comment on above: Order Comment: Speci men Type: BLOOD SPECIMENOrdering Facility: [facility] Address: [address] [place] [address] Performed By: #### 2 4321-2, 48109-7 ####[facility] LABCLIA [id number] [place] [id number] [place] Chloride [Moles/Vol] 100 mmol/L Normal 98-107 [facility] Comment on above: Order Comment: Speci men Type: BLOOD SPECIMENOrdering Facility: [facility] Address: [address] [place], [place] [address] Performed By: #### 2 4321-2, 92028-4 ####[facility] LABCLIA [id number] [place] [id number] [place] CO2 [Moles/Vol] 27 mmol/L Normal 22-30 [facility] Comment on above: Order Comment: Speci men Type: BLOOD SPECIMENOrdering Facility: [facility] Address: [address] [place], [place] [address] Performed By: #### 2 4321-2, 44832-0 ####[facility] LABCLIA [id number] [address] [address] [place] Creatinine [Mass/Vol] 1.34 mg/dL High 0.73-1.22 [facility] Comment on above: Order Comment: Gini nowak Type: BLOOD SPECIMENOrdering Facility: [facility] Address: [address] [place] [address] Performed By: #### 2 4321-2, 25996-9 ####[facility] LABCLIA [id number] [place] [address] [place] eGFRcr SerPlBld CKD-EPI 2020 60 mL/min/1.73m??? Normal >=60 [facility] Comment on above: Order Comment: Gini nowak Type: BLOOD SPECIMENOrdering Facility: [facility] Address: [address] [place] [address] Result Comment: Gurwinder mated Glomerular Filtration Rate [...] actual GFR. Performed By: #### 2 4321-2, 31322-0 ####[facility] LABCLIA [id number] [place] [address] [place] Glucose [Mass/Vol] 270 mg/dL High 74-99 [facility] Comment on above: Order Comment: Gini nowak Type: BLOOD SPECIMENOrdering Facility: [facility] Address: [address] [place] [address] Result Comment: The [place] [employer] (ADA) provides guidance for cutoff [...] Standards of Medical Care in Diabetes 2016, [place] [employer]. Diabetes Care. 2016.39(Suppl 1). Performed By: #### 2 4321-2, 09997-1 ####[facility] LABIA [id number] [address] [address] [place] Potassium [Moles/Vol] 4.7 mmol/L Normal 3.7-5.1 [facility] Comment on above: Order Comment: Speci men Type: BLOOD SPECIMENOrdering Facility: [facility] Address: [address] [place] [address] Performed By: #### 2 4321-2, 61786-6 ####[facility] [id number] [place] [address] [place] Sodium [Moles/Vol] 134 mmol/L Low 136-144 [facility] Comment on above: Order Comment: Speci men Type: BLOOD SPECIMENOrdering Facility: [facility] Address: [address] [place] [address] Performed By: #### 2 4321-2, 07556-7 ####[facility] [id number] [place] [address] [place] Urea nitrogen [Mass/Vol] 20 mg/dL Normal 9-24 [facility] Comment on above: Order Comment: Speci men Type: BLOOD SPECIMENOrdering Facility: [facility] Address: [address] [place] [address] Performed By: #### 2 4321-2, 37828-3 ####[facility] [id number] [place] [id number] [place] CBC W Auto Differential pane l (Bld)on 10-24-2024 Basophils (Bld) [#/Vol] 0.05 10*3/uL Normal <0.11 [facility] Comment on above: Order Comment: Speci men Type: BLOOD SPECIMENOrdering Facility: [facility] Address: [address] [place] [address] Performed By: #### 5 7021-8 ####[facility] LABCLIA [id number] [facility] [address], [place] [address] [place] Basophils/100 WBC (Bld) 0.7 % Normal [facility] Comment on above: Order Comment: Speci men Type: BLOOD SPECIMENOrdering Facility: [facility] Address: [address] [place] [address] Performed By: #### 5 7021-8 ####[facility] LABCLIA [id number] [place] [address] [place] Differential cell count method Nom (Bld) Auto Normal [facility] Comment on above: Order Comment: Speci men Type: BLOOD SPECIMENOrdering Facility: [facility] Address: [address] [place] [address] Performed By: #### 5 7021-8 ####[facility] LABCLIA [id number] [address] [place] Eosinophils (Bld) [#/Vol] 0.08 10*3/uL Normal <0.46 [facility] Comment on above: Order Comment: Speci men Type: BLOOD SPECIMENOrdering Facility: [facility] Address: [address] [place] [address] Performed By: #### 5 7021-8 ####[facility] LABCLIA [id number] [address] [place] Eosinophils/100 WBC (Bld) 1.1 % Normal [facility] Comment on above: Order Comment: Speci men Type: BLOOD SPECIMENOrdering Facility: [facility] Address: [address] [place] [address] Performed By: #### 5 7021-8 ####[facility] LABCLIA [id number] [place] [address] [place] Erythrocyte distribution width (RBC) [Ratio] 17.6 % High 11.5-15.0 [facility] Comment on above: Order Comment: Speci men Type: BLOOD SPECIMENOrdering Facility: [facility] Address: [address] [place] [address] Performed By: #### 5 7021-8 ####[facility] LABCLIA [id number] [address] [address] [place] Hematocrit (Bld) [Volume fraction] 23.7 % Low 39.0-51.0 [facility] Comment on above: Order Comment: Speci men Type: BLOOD SPECIMENOrdering Facility: [facility] Address: [address] [place] [address] Performed By: #### 5 7021-8 ####[facility] LABCLIA [id number] [address], [place] [address] [place] Hemoglobin (Bld) [Mass/Vol] 7.7 g/dL Low 13.0-17.0 [facility] Comment on above: Order Comment: Speci men Type: BLOOD SPECIMENOrdering Facility: [facility] Address: [address] [place] [address] Performed By: #### 5 7021-8 ####[facility] LABIA [id number] [place] [address] [place] Immature granulocytes (Bld) [#/Vol] 0.05 10*3/uL Normal <0.10 [facility] Comment on above: Order Comment: Speci men Type: BLOOD SPECIMENOrdering Facility: [facility] Address: [address] [place] [address] Performed By: #### 5 7021-8 ####[facility] LABIA [id number] [place] [address] [place] Immature granulocytes/100 WBC (Bld) 0.7 % Normal [facility] Comment on above: Order Comment: Speci men Type: BLOOD SPECIMENOrdering Facility: [facility] Address: [address] [place] [address] Performed By: #### 5 7021-8 ####[facility] LABCLIA [id number] [place] [address] [place] Lymphocytes (Bld) [#/Vol] 0.71 10*3/uL Low 1.00-4.00 [facility] Comment on above: Order Comment: Speci men Type: BLOOD SPECIMENOrdering Facility: [facility] Address: [address] [place] [address] Performed By: #### 5 7021-8 ####[facility] LABCLIA [id number] [place] [address] [place] Lymphocytes/100 WBC (Bld) 9.5 % Normal [facility] Comment on above: Order Comment: Speci men Type: BLOOD SPECIMENOrdering Facility: [facility] Address: [address] [place] [address] Performed By: #### 5 7021-8 ####[facility] LABIA [id number] [place] [address] [place] MCH (RBC) [Entitic mass] 32.4 pg Normal 26.0-34.0 [facility] Comment on above: Order Comment: Speci men Type: BLOOD SPECIMENOrdering Facility: [facility] Address: [address] [place] [address] Performed By: #### 5 7021-8 ####[facility] LABCLIA [id number] [place] [address] [place] MCHC (RBC) [Mass/Vol] 32.5 g/dL Normal 30.5-36.0 [facility] Comment on above: Order Comment: Speci men Type: BLOOD SPECIMENOrdering Facility: [facility] Address: [address] [place] [address] Performed By: #### 5 7021-8 ####[facility] LABIA [id number] [place] [address] [place] MCV (RBC) [Entitic vol] 99.6 fL Normal 80.0-100.0 C [facility] Comment on above: Order Comment: Speci men Type: BLOOD SPECIMENOrdering Facility: [facility] Address: [address] [place] [address] Performed By: #### 5 7021-8 ####[facility] LABCLIA [id number] [place] [address] [place] Monocytes (Bld) [#/Vol] 0.75 10*3/uL Normal <0.87 [facility] Comment on above: Order Comment: Speci men Type: BLOOD SPECIMENOrdering Facility: [facility] Address: [address] [place] [address] Performed By: #### 5 7021-8 ####[facility] LABCLIA [id number] [place] [address] [place] Monocytes/100 WBC (Bld) 10.1 % Normal C [facility] Comment on above: Order Comment: Speci men Type: BLOOD SPECIMENOrdering Facility: [facility] Address: [address] [place] [address] Performed By: #### 5 7021-8 ####[facility] LABCLIA [id number] [place] [address] [place] Neutrophils (Bld) [#/Vol] 5.80 10*3/uL Normal 1.45-7.50 [facility] Comment on above: Order Comment: Speci men Type: BLOOD SPECIMENOrdering Facility: [facility] Address: [address] [place] [address] Performed By: #### 5 7021-8 ####[facility] LABCLIA [id number] [place] [address] [place] Neutrophils/100 WBC (Bld) 77.9 % Normal [facility] Comment on above: Order Comment: Speci men Type: BLOOD SPECIMENOrdering Facility: [facility] Address: [address] [place] [address] Performed By: #### 5 7021-8 ####[facility] LABCLIA [id number] [place] [address] [place] Nucleated RBC (Bld) [#/Vol] 10*3/uL Normal <0.01 [facility] Comment on above: Order Comment: Speci men Type: BLOOD SPECIMENOrdering Facility: [facility] Address: [address] [place] [address] Performed By: #### 5 7021-8 ####[facility] LABIA [id number] [place] [address] [place] Nucleated RBC/100 WBC (Bld) [Ratio] 0.0 /100 WBC Normal [facility] Comment on above: Order Comment: Speci men Type: BLOOD SPECIMENOrdering Facility: [facility] Address: [address] [place] [address] Performed By: #### 5 7021-8 ####[facility] LABIA [id number] [place] [address] [place] Platelet mean volume (Bld) [Entitic vol] 11.8 fL Normal 9.0-12.7 [facility] Comment on above: Order Comment: Speci men Type: BLOOD SPECIMENOrdering Facility: [facility] Address: [address] [place] [address] Performed By: #### 5 7021-8 ####[facility] LABCLIA [id number] [place] [address] [place] Platelets (Bld) [#/Vol] 94 10*3/uL Low 150-400 C [facility] Comment on above: Order Comment: Speci men Type: BLOOD SPECIMENOrdering Facility: [facility] Address: [address] [place] [address] Result Comment: No c lot detected.Results checked and verified. Performed By: #### 5 7021-8 ####[facility] LABCLIA [id number] [place] [address] [place] RBC (Bld) [#/Vol] 2.38 10*6/uL Low 4.20-6.00 [facility] Comment on above: Order Comment: Speci men Type: BLOOD SPECIMENOrdering Facility: [facility] Address: [address] [place] [address] Performed By: #### 5 7021-8 ####[facility] LABIA [id number] [place] [address] [place] WBC (Bld) [#/Vol] 7.44 10*3/uL Normal 3.70-11.00 [facility] Comment on above: Order Comment: Speci men Type: BLOOD SPECIMENOrdering Facility: [facility] Address: [address] [place] [address] Performed By: #### 5 7021-8 ####[facility] LABIA [id number] [place] [address] [place] CBC W Ordered Manual Differe ntial panel (Bld)on 10-24-2024 Basophils (Bld) [#/Vol] 0.04 10*3/uL Normal <0.11 [facility] Comment on above: Order Comment: Speci men Type: BLOOD SPECIMENOrdering Facility: [facility] Address: [address] [place] [address] Performed By: #### 5 7782-5, STFREV ####[facility] LABIA [id number] [place] [address] [place] Basophils/100 WBC (Bld) 0.6 % Normal [facility] Comment on above: Order Comment: Speci men Type: BLOOD SPECIMENOrdering Facility: [facility] Address: [address] [place] [address] Performed By: #### 5 7782-5, STFREV ####[facility] LABCLIA [id number] [place] [address] [place] Differential cell count method Nom (Bld) Auto Normal [facility] Comment on above: Order Comment: Speci men Type: BLOOD SPECIMENOrdering Facility: [facility] Address: [address] [place] [address] Performed By: #### 5 7782-5, STFREV ####[facility] LABCLIA [id number] [place] [address] [place] Eosinophils (Bld) [#/Vol] 0.06 10*3/uL Normal <0.46 [facility] Comment on above: Order Comment: Speci men Type: BLOOD SPECIMENOrdering Facility: [facility] Address: [address] [place] [address] Performed By: #### 5 7782-5, STFREV ####[facility] LABCLIA [id number] [place] [address] [place] Eosinophils/100 WBC (Bld) 1.0 % Normal [facility] Comment on above: Order Comment: Speci men Type: BLOOD SPECIMENOrdering Facility: [facility] Address: [address] [place] [address] Performed By: #### 5 7782-5, STFREV ####[facility] LABCLIA [id number] [place] [address] [place] Erythrocyte distribution width (RBC) [Ratio] 17.4 % High 11.5-15.0 [facility] Comment on above: Order Comment: Speci men Type: BLOOD SPECIMENOrdering Facility: [facility] Address: [address] [place] [address] Performed By: #### 5 7782-5, STFREV ####[facility] LABCLIA [id number] [place] [address] [place] Hematocrit (Bld) [Volume fraction] 24.3 % Low 39.0-51.0 [facility] Comment on above: Order Comment: Speci men Type: BLOOD SPECIMENOrdering Facility: [facility] Address: [address] [place] [address] Performed By: #### 5 7782-5, STFRLUZ ####[facility] LABCLIA [id number] [place] [address] [place] Hemoglobin (Bld) [Mass/Vol] 7.9 g/dL Low 13.0-17.0 [facility] Comment on above: Order Comment: Speci men Type: BLOOD SPECIMENOrdering Facility: [facility] Address: [address] [place] [address] Performed By: #### 5 7782-5, STAYANNA ####[facility] LABCLIA [id number] [place] [address] [place] Immature granulocytes (Bld) [#/Vol] 0.03 10*3/uL Normal <0.10 [facility] Comment on above: Order Comment: Speci men Type: BLOOD SPECIMENOrdering Facility: [facility] Address: [address] [place] [address] Performed By: #### 5 7782-5, STFRLUZ ####[facility] LABCLIA [id number] [place] [address] [place] Immature granulocytes/100 WBC (Bld) 0.5 % Normal [facility] Comment on above: Order Comment: Speci men Type: BLOOD SPECIMENOrdering Facility: [facility] Address: [address] [place] [address] Performed By: #### 5 7782-5, STFREV ####[facility] LABCLIA [id number] [place] [address] [place] Lymphocytes (Bld) [#/Vol] 0.90 10*3/uL Low 1.00-4.00 [facility] Comment on above: Order Comment: Speci men Type: BLOOD SPECIMENOrdering Facility: [facility] Address: [address] [place] [address] Performed By: #### 5 7782-5, STFREV ####[facility] LABCLIA [id number] [place] [address] [place] Lymphocytes/100 WBC (Bld) 14.4 % Normal [facility] Comment on above: Order Comment: Speci men Type: BLOOD SPECIMENOrdering Facility: [facility] Address: [address] [place] [address] Performed By: #### 5 7782-5, STFREV ####[facility] LABIA [id number] [place] [address] [place] MCH (RBC) [Entitic mass] 32.5 pg Normal 26.0-34.0 [facility] Comment on above: Order Comment: Speci men Type: BLOOD SPECIMENOrdering Facility: [facility] Address: [address] [place] [address] Performed By: #### 5 7782-5, STFREV ####[facility] LABIA [id number] [place] [address] [place] MCHC (RBC) [Mass/Vol] 32.5 g/dL Normal 30.5-36.0 [facility] Comment on above: Order Comment: Speci men Type: BLOOD SPECIMENOrdering Facility: [facility] Address: [address] [place] [address] Performed By: #### 5 7782-5, STFREV ####[facility] LABIA [id number] [place] [address] [place] MCV (RBC) [Entitic vol] 100.0 fL Normal 80.0-100.0 C [facility] Comment on above: Order Comment: Speci men Type: BLOOD SPECIMENOrdering Facility: [facility] Address: [address] [place] [address] Performed By: #### 5 7782-5, STFREV ####[facility] LABCLIA [id number] [address] [place] [address] [place] Monocytes (Bld) [#/Vol] 0.72 10*3/uL Normal <0.87 [facility] Comment on above: Order Comment: Speci men Type: BLOOD SPECIMENOrdering Facility: [facility] Address: [address] [place] [address] Performed By: #### 5 7782-5, STFREV ####[facility] LABCLIA [id number] [place] [address] [place] Monocytes/100 WBC (Bld) 11.6 % Normal [facility] Comment on above: Order Comment: Speci men Type: BLOOD SPECIMENOrdering Facility: [facility] Address: [address] [place] [address] Performed By: #### 5 7782-5, STFREV ####[facility] LABCLIA [id number] [place] [address] [place] Neutrophils (Bld) [#/Vol] 4.48 10*3/uL Normal 1.45-7.50 [facility] Comment on above: Order Comment: Speci men Type: BLOOD SPECIMENOrdering Facility: [facility] Address: [address] [place] [address] Performed By: #### 5 7782-5, STFREV ####[facility] LABCLIA [id number] [place] [address] [place] Neutrophils/100 WBC (Bld) 71.9 % Normal [facility] Comment on above: Order Comment: Speci men Type: BLOOD SPECIMENOrdering Facility: [facility] Address: [address] [place] [address] Performed By: #### 5 7782-5, STFREV ####[facility] LABCLIA [id number] [place] [id number] [place] Nucleated RBC (Bld) [#/Vol] 10*3/uL Normal <0.01 [facility] Comment on above: Order Comment: Speci men Type: BLOOD SPECIMENOrdering Facility: [facility] Address: [address] [place] [address] Performed By: #### 5 7782-5, STFREV ####[facility] LABCLIA [id number] [place] [id number] [place] Nucleated RBC/100 WBC (Bld) [Ratio] 0.0 /100 WBC Normal [facility] Comment on above: Order Comment: Speci men Type: BLOOD SPECIMENOrdering Facility: [facility] Address: [address] [place] [address] Performed By: #### 5 7782-5, STFREV ####[facility] LABCLIA [id number] [place] [address] [place] Platelet mean volume (Bld) [Entitic vol] 12.3 fL Normal 9.0-12.7 [facility] Comment on above: Order Comment: Speci men Type: BLOOD SPECIMENOrdering Facility: [facility] Address: [address] [place] [address] Performed By: #### 5 7782-5, STFREV ####[facility] LABCLIA [id number] [place] [address] [place] Platelets (Bld) [#/Vol] 103 10*3/uL Low 150-400 [facility] Comment on above: Order Comment: Speci men Type: BLOOD SPECIMENOrdering Facility: [facility] Address: [address] [place] [address] Performed By: #### 5 7782-5, STFREV ####[facility] LABCLIA [id number] [place] [address] [place] RBC (Bld) [#/Vol] 2.43 10*6/uL Low 4.20-6.00 [facility] Comment on above: Order Comment: Speci men Type: BLOOD SPECIMENOrdering Facility: [facility] Address: [address] [place] [address] Performed By: #### 5 7782-5, STFREV ####[facility] LABIA [id number] [place] [address] [place] WBC (Bld) [#/Vol] 6.23 10*3/uL Normal 3.70-11.00 [facility] Comment on above: Order Comment: Speci men Type: BLOOD SPECIMENOrdering Facility: [facility] Address: [address] [place] [address] Performed By: #### 5 7782-5, STFREV ####[facility] LABIA [id number] [place] [address] [place] CBC panel Auto (Bld)on 10-24 Erythrocyte distribution width (RBC) [Ratio] 17.2 % High 11.5-15.0 [facility] Comment on above: Order Comment: Speci men Type: BLOOD SPECIMENOrdering Facility: [facility] Address: [address] [place] [address] Performed By: #### 5 8410-2 ####[facility] LABIA [id number] [place] [address] [place] Hematocrit (Bld) [Volume fraction] 24.8 % Low 39.0-51.0 [facility] Comment on above: Order Comment: Speci men Type: BLOOD SPECIMENOrdering Facility: [facility] Address: [address] [place] [address] Performed By: #### 5 8410-2 ####[facility] LABIA [id number] [place] [address] [place] Hemoglobin (Bld) [Mass/Vol] 7.8 g/dL Low 13.0-17.0 [facility] Comment on above: Order Comment: Speci men Type: BLOOD SPECIMENOrdering Facility: [facility] Address: [address] [place] [address] Performed By: #### 5 8410-2 ####[facility] LABIA [id number] [place] [address] [place] MCH (RBC) [Entitic mass] 31.5 pg Normal 26.0-34.0 [facility] Comment on above: Order Comment: Speci men Type: BLOOD SPECIMENOrdering Facility: [facility] Address: [address] [place] [address] Performed By: #### 5 8410-2 ####[facility] LABIA [id number] [place] [address] [place] MCHC (RBC) [Mass/Vol] 31.5 g/dL Normal 30.5-36.0 [facility] Comment on above: Order Comment: Speci men Type: BLOOD SPECIMENOrdering Facility: [facility] Address: [address] [place] [address] Performed By: #### 5 8410-2 ####[facility] LABIA [id number] [place] [address] [place] MCV (RBC) [Entitic vol] 100.0 fL Normal 80.0-100.0 C [facility] Comment on above: Order Comment: Speci men Type: BLOOD SPECIMENOrdering Facility: [facility] Address: [address] [place] [address] Performed By: #### 5 8410-2 ####[facility] LABIA [id number] [address] [place] Nucleated RBC (Bld) [#/Vol] 10*3/uL Normal <0.01 [facility] Comment on above: Order Comment: Speci men Type: BLOOD SPECIMENOrdering Facility: [facility] Address: [address] [place] [address] Performed By: #### 5 8410-2 ####[facility] LABIA [id number] [place] [id number] [address] [place] Platelet mean volume (Bld) [Entitic vol] 11.8 fL Normal 9.0-12.7 [facility] Comment on above: Order Comment: Speci men Type: BLOOD SPECIMENOrdering Facility: [facility] Address: [address] [place] [address] Performed By: #### 5 8410-2 ####[facility]IA [id number] [place] [address] [place] Platelets (Bld) [#/Vol] 95 10*3/uL Low 150-400 C [facility] Comment on above: Order Comment: Speci men Type: BLOOD SPECIMENOrdering Facility: [facility] Address: [address] [place] [address] Result Comment: Resu lts checked and verified.No clot detected. Performed By: #### 5 8410-2 ####[facility] [id number] [place] [address] [place] RBC (Bld) [#/Vol] 2.48 10*6/uL Low 4.20-6.00 [facility] Comment on above: Order Comment: Speci men Type: BLOOD SPECIMENOrdering Facility: [facility] Address: [address] [place] [address] Performed By: #### 5 8410-2 ####[facility] LABIA [id number] [place] [address] [place] WBC (Bld) [#/Vol] 8.00 10*3/uL Normal 3.70-11.00 [facility] Comment on above: Order Comment: Speci men Type: BLOOD SPECIMENOrdering Facility: [facility] Address: [address] [place] [address] Performed By: #### 5 8410-2 ####[facility] LABIA [id number] [place] [id number] [place] CYSTATIN Con 10-24-2024 Cystatin C [Mass/Vol] 1.48 mg/L High 0.61-0.95 [facility] Comment on above: Order Comment: Speci men Type: BLOOD SPECIMENOrdering Facility: [facility] Address: [address] [place] [address] Performed By: #### C YSTC, 2532-0 ####[facility] LABCLIA [id number] [place] [address] [place] CYSTATIN C EGFR 46 mL/min/1.73m??? Low >=60 C [facility] Comment on above: Order Comment: Speci men Type: BLOOD SPECIMENOrdering Facility: [facility] Address: [address] [place] [address] Result Comment: Gurwinder mated Glomerular Filtration Rate (eGFR) is calculated using the 2012 CKD-EPI cystatin C equation. This equation utilizes serum cystatin C, sex, and age as parameters. The cystatin C assay has traceable calibration to the ERM-DA471/[facility] reference material. Refer to KDIGO guidelines for clinical interpretation. In patients with unstable renal function, e.g. those with acute kidney injury, the eGFR may not accurately reflect actual GFR. Performed By: #### C YSTC, 2-0 ####[facility] LABCLIA [id number] [place] [address] [place] CYTOLOGY NON-GYNon 5 AP DISCLAIMER Normal [facility] Comment on above: Order Comment: Speci men Type: SPECIMEN FROM PLEURA OBTAINED BY THORACENTESISOrdering Facility: [facility] Address: [address] [place] [address] Result Comment: Etienne vera Developed Test (LDT) Disclaimer:Performance characteristics of immunohistochemical, immunofluorescent, and chromogenic in-situ hybridization tests have been determined by the performing laboratory within the [facility] Department of Pathology and Laboratory Medicine ([facility], [facility], [facility], [facility], [facility], [facility], or [facility]) in a manner consistent with CLIA requirements. One or more of these tests may not have been cleared or approved by the FDA. The [facility] Department of Pathology and Laboratory Medicine is regulated under CLIA as qualified to perform high-complexity testing. These tests are used for clinical purposes. These should not be regarded as investigational or for research. Positive and negative controls stain appropriately. Performed By: #### C YTONON ####[facility] LABCLIA [id number] [place] [address] [place] CASE REPORT Normal [facility] Comment on above: Order Comment: Speci men Type: SPECIMEN FROM PLEURA OBTAINED BY THORACENTESISOrdering Facility: [facility] Address: [address] [place] [address] Result Comment: [facility] Cytology Report Case: [id number] Provider: Piper Chin MD Collected: 10/24/2024 10:18 AMOrdering Location: [id number] Received: 10/24/2024 03:20 PMPathologist: Tee Barroso MDSpecimen: Pleural Cavity, Right Performed By: #### C YTONON ####[facility] LABCLIA [id number] [place] [address] [place] CLINICAL HISTORY Heart Failure with Bilateral Pleural effusions Normal [facility] Comment on above: Order Comment: Speci men Type: SPECIMEN FROM PLEURA OBTAINED BY THORACENTESISOrdering Facility: [facility] Address: [address] [place] [address] Performed By: #### C YTONON ####[facility] LABIA [id number] [address] [place] FINAL DIAGNOSIS Normal [facility] Comment on above: Order Comment: Speci men Type: SPECIMEN FROM PLEURA OBTAINED BY THORACENTESISOrdering Facility: [facility] Address: [address] [place] [address] Result Comment: A - Pleural Cavity, Right, Fluid. Negative for malignant cells. Acute and chronic inflammation.The following cell blocks were associated with this case:A1 Cell Block, Alcohol Fixed at 1406 EDT Performed By: #### C YTONON ####[facility] LABCLIA [id number] [place] [address] [place] FINAL PERFORMING LAB Normal [facility] Comment on above: Order Comment: Speci men Type: SPECIMEN FROM PLEURA OBTAINED BY THORACENTESISOrdering Facility: [facility] Address: [address] [place] [address] Result Comment: Tech nical component, pumper gauger screening performed at: [facility], [address] [place], [place] [address] CLIA: [id number] interpretation performed at: [facility], [address] [place] [address] CLIA# [id number] Director: Jaya Jones MD Performed By: #### C YTONON ####[facility] LABCLIA [id number] [address] STATES OF [facility] GROSS DESCRIPTION Normal [facility] Comment on above: Order Comment: Speci men Type: SPECIMEN FROM PLEURA OBTAINED BY THORACENTESISOrdering Facility: [facility] Address: [address] [place] [address] Result Comment: A. P leural Cavity, Right25 cc clear yellow fluid . ThinPrep and Cell Block prepared. Performed By: #### C YTONON ####[facility] LABCLIA [id number] [place] [address] [place] Cholest Fld-mCncon 5 Cholesterol (Body fld) [Mass/Vol] 14 mg/dL Normal See Comment [facility] Comment on above: Order Comment: Speci men Type: SPECIMEN FROM PLEURA OBTAINED BY THORACENTESISOrdering Facility: [facility] Address: [address] [place] [address] Result Comment: SYNO VIAL FLUIDS:Synovial fluid cholesterol [...] document C49-A. ANDREY Bright: Clinical Laboratory Standards [place]; 2007. Performed By: #### 2 881-1, 97805-1, 2529-6, 1747-5 ####[facility] LABCLIA [id number] [place] [address] [place] Cholest SerPl-mCncon 025 Cholesterol [Mass/Vol] 107 mg/dL Normal <200 [facility] Comment on above: Order Comment: Gini nowak Type: BLOOD SPECIMENOrdering Facility: [facility] Address: [address] [place] [address] Result Comment: <200 mg/dL, Desirable 200-239 mg/dL, Borderline high>239 mg/dL, HighReference:1. National Cholesterol Education Program ATP III Guideline At-A-Glance Quick Desk Reference: National Heart, Lung, and Blood [place]. National Institutes of Health. 2001: NIH Publication No. 01-3305. Performed By: #### 1 751-7, 2885-2, 2093-3 ####[facility] LABCLIA [id number] [place] [address] [place] Fact Xa PPP-aCncon 5 Coagulation factor X activated act Coag Qn (PPP) 0.28 IU/mL High <0.10 [facility] Comment on above: Order Comment: Gini nowak Type: BLOOD SPECIMENOrdering Facility: [facility] Address: [address] [place] [address] Result Comment: The recommended therapeutic range for treatment of venous and arterial thrombosis with intravenous unfractionated heparin is an anti Xa activity level of 0.3 to 0.7 IU/mL. In patients with concomitant therapy with thrombolytic agents and/or platelet glycoprotein IIb/IIIa antagonists, the recommended therapeutic range is an anti Xa activity level of 0.2 to 0.5 IU/mL. Performed By: #### 3 4528-0, 3217-7 ####[facility] LABCLIA [id number] [place] [address] [place] Coagulation factor X activated act Coag Qn (PPP) <0.10 Normal <0.10 [facility] Comment on above: Order Comment: Gini nowak Type: BLOOD SPECIMENOrdering Facility: [facility] Address: [address] [place] [address] Result Comment: The recommended therapeutic range for treatment of venous and arterial thrombosis with intravenous unfractionated heparin is an anti Xa activity level of 0.3 to 0.7 IU/mL. In patients with concomitant therapy with thrombolytic agents and/or platelet glycoprotein IIb/IIIa antagonists, the recommended therapeutic range is an anti Xa activity level of 0.2 to 0.5 IU/mL. Performed By: #### 3 217-7, 75667-3 ####[facility] [id number] [place] [address] [place] Gas + CO Pnl BldVon 10-25-19 25 Body temperature 98.06 [degF] Normal [facility] Comment on above: Order Comment: Gini nowak Type: VENOUS BLOOD SPECIMENOrdering Facility: [facility] Address: [address] [place] [address] Performed By: #### 2 4344-4 ####[facility] LABIA [id number] [address] [place] Order Comment: Gini nowak Type: ARTERIAL BLOOD SPECIMENOrdering Facility: [facility] Address: [address] [place] [address] Performed By: #### A LLBG ####[facility] LABIA [id number] [address] [address] [id number] [address] [place] Calcium.ionized (Bld) [Mass/Vol] 1.18 mmol/L Normal 1.08-1.30 [facility] Comment on above: Order Comment: Speci men Type: VENOUS BLOOD SPECIMENOrdering Facility: [facility] Address: [address] [place] [address] Performed By: #### 2 4344-4 ####[facility] LABCLIA [id number] [address] [place] Order Comment: Speci men Type: ARTERIAL BLOOD SPECIMENOrdering Facility: [facility] Address: [address] [place] [address] Performed By: #### A LLBG ####[facility] LABCLIA [id number] [place] [address] [place] HCO3 (Bld) [Moles/Vol] 29 mmol/L High 22-26 [facility] Comment on above: Order Comment: Speci men Type: VENOUS BLOOD SPECIMENOrdering Facility: [facility] Address: [address] [place] [address] Performed By: #### 2 4344-4 ####[facility] LABCLIA [id number] [address] Order Comment: Speci men Type: ARTERIAL BLOOD SPECIMENOrdering Facility: [facility] Address: [address] [place] [address] Performed By: #### A LLBG ####[facility] LABCLIA [id number] [place] [address] [place] Lactate [Moles/Vol] 0.6 mmol/L Normal 0.5-2.2 [facility] Comment on above: Order Comment: Speci men Type: VENOUS BLOOD SPECIMENOrdering Facility: [facility] Address: [address] [place] [address] Performed By: #### 2 4344-4 ####[facility] LABCLIA [id number] [address] [address] [place] Order Comment: Speci men Type: ARTERIAL BLOOD SPECIMENOrdering Facility: [facility] Address: [address] [place] [id number] Performed By: #### A LLBG ####[facility] LABCLIA [id number] [address] [place] [address] [place] LITERS 6 Liters/min Normal [facility] Comment on above: Order Comment: Speci men Type: VENOUS BLOOD SPECIMENOrdering Facility: [facility] Address: [address] [place] [id number] Performed By: #### 2 4344-4 ####[facility] LABCLIA [id number] [address], [facility]95 [place] Order Comment: Speci men Type: ARTERIAL BLOOD SPECIMENOrdering Facility: [facility] Address: [address] [place] [address] Performed By: #### A LLBG ####[facility] LABCLIA [id number] [place] [id number] [place] O2 THERAPY NC = Nasal Cannula Normal [facility] Comment on above: Order Comment: Speci men Type: VENOUS BLOOD SPECIMENOrdering Facility: [facility] Address: [address] [place], [place] [address] Performed By: #### 2 4344-4 ####[facility] LABCLIA [id number] [place] [id number] [place] Order Comment: Speci men Type: ARTERIAL BLOOD SPECIMENOrdering Facility: [facility] Address: [address] [place] [id number] Performed By: #### A LLBG ####[facility] LABCLIA [id number] [address] [address] [place] Gas and Carbon monoxide pane l (BldV)on 10-24-2024 Base excess Calc (BldV) [Moles/Vol] 5 mmol/L High 0-2 [facility] Comment on above: Order Comment: Speci men Type: VENOUS BLOOD SPECIMENOrdering Facility: [facility] Address: [address] [place] [address] Performed By: #### 2 4344-4 ####[facility] LABIA [id number] [place] [address] [place] Body temperature 98.6 [degF] Normal [facility] Comment on above: Order Comment: Speci men Type: VENOUS BLOOD SPECIMENOrdering Facility: [facility] Address: [address] [place] [address] Performed By: #### 2 4344-4 ####[facility] [id number] [place] [address] [place] Calcium.ionized (Bld) [Mass/Vol] 1.21 mmol/L Normal 1.08-1.30 [facility] Comment on above: Order Comment: Speci men Type: VENOUS BLOOD SPECIMENOrdering Facility: [facility] Address: [address] [place] [address] Performed By: #### 2 4344-4 ####[facility] [id number] [place] [address] [place] Calcium.ionized adjusted to pH 7.4 (BldA) [Moles/Vol] 1.18 mmol/L Normal 1.08-1.30 [facility] Comment on above: Order Comment: Speci men Type: VENOUS BLOOD SPECIMENOrdering Facility: [facility] Address: [address] [place] [address] Performed By: #### 2 4344-4 ####[facility] [id number] [place] [address] [place] Carboxyhemoglobin (BldV) [Mass fraction] 1.0 % Normal 0.0-2.0 [facility] Comment on above: Order Comment: Speci men Type: VENOUS BLOOD SPECIMENOrdering Facility: [facility] Address: [address] [place] [address] Result Comment: Carb oxyhemoglobin Reference Range for Smokers: 2.0-8.0% Performed By: #### 2 4344-4 ####[facility] LABCLIA [id number] [address] [address] [place] CO2 (BldV) [Partial pressure] 56 mm[Hg] High 42-55 [facility] Comment on above: Order Comment: Speci men Type: VENOUS BLOOD SPECIMENOrdering Facility: [facility] Address: [address] [place] [address] Performed By: #### 2 4344-4 ####[facility] LABCLIA [id number] [place] [address] [place] Glucose [Mass/Vol] 119 mg/dL High 60-105 [facility] Comment on above: Order Comment: Speci men Type: VENOUS BLOOD SPECIMENOrdering Facility: [facility] Address: [address] [place] [address] Performed By: #### 2 4344-4 ####[facility] LABCLIA [id number] [place] [address] [place] HCO3 (Bld) [Moles/Vol] 31 mmol/L High 24-28 [facility] Comment on above: Order Comment: Speci men Type: VENOUS BLOOD SPECIMENOrdering Facility: [facility] Address: [address] [place] [address] Performed By: #### 2 4344-4 ####[facility] LABCLIA [id number] [place] [id number] [place] Hematocrit (Bld) [Volume fraction] 22.7 % Low 39.0-51.0 [facility] Comment on above: Order Comment: Speci men Type: VENOUS BLOOD SPECIMENOrdering Facility: [facility] Address: [address] [place] [address] Performed By: #### 2 4344-4 ####[facility] LABCLIA [id number] [place] [address] [place] Hemoglobin (Bld) [Mass/Vol] 7.3 g/dL Low 13.0-17.0 [facility] Comment on above: Order Comment: Speci men Type: VENOUS BLOOD SPECIMENOrdering Facility: [facility] Address: [address] [place] [address] Performed By: #### 2 4344-4 ####[facility] LABCLIA [id number] [place] [address] [place] Lactate [Moles/Vol] 0.9 mmol/L Normal 0.5-2.2 [facility] Comment on above: Order Comment: Speci men Type: VENOUS BLOOD SPECIMENOrdering Facility: [facility] Address: [address] [place] [address] Performed By: #### 2 4344-4 ####[facility] LABCLIA [id number] [place] [address] [place] LITERS 3 Liters/min Normal [facility] Comment on above: Order Comment: Speci men Type: VENOUS BLOOD SPECIMENOrdering Facility: [facility] Address: [address] [place] [address] Performed By: #### 2 4344-4 ####[facility] LABCLIA [id number] [place] [address] [place] Methemoglobin (Bld) [Mass fraction] 1.4 % Normal 0.0-1.5 [facility] Comment on above: Order Comment: Speci men Type: VENOUS BLOOD SPECIMENOrdering Facility: [facility] Address: [address] [place] [address] Performed By: #### 2 4344-4 ####[facility] LABCLIA [id number] [place] [address] [place] O2 THERAPY NC = Nasal Cannula Normal [facility] Comment on above: Order Comment: Speci men Type: VENOUS BLOOD SPECIMENOrdering Facility: [facility] Address: [address] [place] [address] Performed By: #### 2 4344-4 ####[facility] LABCLIA [id number] [address] [place] [address] [place] Oxygen (BldV) [Partial pressure] 38 mm[Hg] Normal 35-45 [facility] Comment on above: Order Comment: Speci men Type: VENOUS BLOOD SPECIMENOrdering Facility: [facility] Address: [address] [place], [place] [address] Performed By: #### 2 4344-4 ####[facility] LABCLIA [id number] [address] [place] [address] [place] Oxygen saturation in Venous blood 65 % Normal 60-85 [facility] Comment on above: Order Comment: Speci men Type: VENOUS BLOOD SPECIMENOrdering Facility: [facility] Address: [address] [place], [place] [address] Performed By: #### 2 4344-4 ####[facility] LABIA [id number] [address] [place] [address] [place] Oxyhemoglobin (BldV) [Mass fraction] 63 % Normal 60-85 [facility] Comment on above: Order Comment: Speci men Type: VENOUS BLOOD SPECIMENOrdering Facility: [facility] Address: [address] [place], [place] [address] Performed By: #### 2 4344-4 ####[facility] LABCLIA [id number] [address] [place] [address] [place] pH (BldV) 7.36 [pH] Normal 7.32-7.42 [facility] Comment on above: Order Comment: Speci men Type: VENOUS BLOOD SPECIMENOrdering Facility: [facility] Address: [address] [place] [address] Performed By: #### 2 4344-4 ####[facility] LABCLIA [id number] [address] [address] [place] Potassium [Moles/Vol] 4.7 mmol/L Normal 3.5-5.0 [facility] Comment on above: Order Comment: Speci men Type: VENOUS BLOOD SPECIMENOrdering Facility: [facility] Address: [address] [place] [address] Performed By: #### 2 4344-4 ####[facility] LABCLIA [id number] [place] [address] [place] Sodium [Moles/Vol] 134 mmol/L Low 136-144 [facility] Comment on above: Order Comment: Speci men Type: VENOUS BLOOD SPECIMENOrdering Facility: [facility] Address: [address] [place] [address] Performed By: #### 2 4344-4 ####[facility] LABCLIA [id number] [place] [address] [place] Base excess Calc (BldV) [Moles/Vol] 4 mmol/L High 0-2 [facility] Comment on above: Order Comment: Speci men Type: VENOUS BLOOD SPECIMENOrdering Facility: [facility] Address: [address] [place] [address] Performed By: #### 2 4344-4 ####[facility] LABCLIA [id number] [place] [address] [place] Body temperature 99.14 [degF] Normal [facility] Comment on above: Order Comment: Speci men Type: VENOUS BLOOD SPECIMENOrdering Facility: [facility] Address: [address] [place] [address] Performed By: #### 2 4344-4 ####[facility] LABCLIA [id number] [place] [address] [place] Calcium.ionized (Bld) [Mass/Vol] 1.19 mmol/L Normal 1.08-1.30 [facility] Comment on above: Order Comment: Speci men Type: VENOUS BLOOD SPECIMENOrdering Facility: [facility] Address: [address] [place] [address] Performed By: #### 2 4344-4 ####[facility] LABCLIA [id number] [place] [address] [place] Calcium.ionized adjusted to pH 7.4 (BldA) [Moles/Vol] 1.16 mmol/L Normal 1.08-1.30 [facility] Comment on above: Order Comment: Speci men Type: VENOUS BLOOD SPECIMENOrdering Facility: [facility] Address: [address] [place] [address] Performed By: #### 2 4344-4 ####[facility] LABIA [id number] [place] [address] [place] Carboxyhemoglobin (BldV) [Mass fraction] 1.2 % Normal 0.0-2.0 [facility] Comment on above: Order Comment: Speci men Type: VENOUS BLOOD SPECIMENOrdering Facility: [facility] Address: [address] [place] [address] Result Comment: Carb oxyhemoglobin Reference Range for Smokers: 2.0-8.0% Performed By: #### 2 4344-4 ####[facility] LABCLIA [id number] [place] [address] [place] CO2 (BldV) [Partial pressure] 56 mm[Hg] High 42-55 [facility] Comment on above: Order Comment: Speci men Type: VENOUS BLOOD SPECIMENOrdering Facility: [facility] Address: [address] [place] [address] Performed By: #### 2 4344-4 ####[facility] LABCLIA [id number] [place] [address] [place] CO2 adjusted to patient's actual temperature (BldV) [Partial pressure] 57 mmHg High 42-55 [facility] Comment on above: Order Comment: Speci men Type: VENOUS BLOOD SPECIMENOrdering Facility: [facility] Address: [address] [place] [address] Performed By: #### 2 4344-4 ####[facility] LABCLIA [id number] [facility] [address] [place] [address] [place] Glucose [Mass/Vol] 142 mg/dL High 60-105 [facility] Comment on above: Order Comment: Speci men Type: VENOUS BLOOD SPECIMENOrdering Facility: [facility] Address: [address] [place] [address] Performed By: #### 2 4344-4 ####[facility] LABCLIA [id number] [facility] [address] [place] [address] [place] HCO3 (Bld) [Moles/Vol] 30 mmol/L High 24-28 [facility] Comment on above: Order Comment: Speci men Type: VENOUS BLOOD SPECIMENOrdering Facility: [facility] Address: [address] [place] [address] Performed By: #### 2 4344-4 ####[facility] LABCLIA [id number] [facility] [address], [facility]95 [place] Hematocrit (Bld) [Volume fraction] 22.0 % Low 39.0-51.0 [facility] Comment on above: Order Comment: Speci men Type: VENOUS BLOOD SPECIMENOrdering Facility: [facility] Address: [address] [place], [place] [address] Performed By: #### 2 4344-4 ####[facility] LABCLIA [id number] [facility] [address] [place] [address] [place] Hemoglobin (Bld) [Mass/Vol] 7.0 g/dL Low 13.0-17.0 [facility] Comment on above: Order Comment: Speci men Type: VENOUS BLOOD SPECIMENOrdering Facility: [facility] Address: [address] [place], [place] [address] Performed By: #### 2 4344-4 ####[facility] LABCLIA [id number] [facility] [id number] [place] Lactate [Moles/Vol] 1.0 mmol/L Normal 0.5-2.2 [facility] Comment on above: Order Comment: Speci men Type: VENOUS BLOOD SPECIMENOrdering Facility: [facility] Address: [address] [place] [address] Performed By: #### 2 4344-4 ####[facility] LABCLIA [id number] [place] [address] [place] LITERS 3 Liters/min Normal [facility] Comment on above: Order Comment: Speci men Type: VENOUS BLOOD SPECIMENOrdering Facility: [facility] Address: [address] [place] [address] Performed By: #### 2 4344-4 ####[facility] LABCLIA [id number] [place] [address] [place] Methemoglobin (Bld) [Mass fraction] 1.2 % Normal 0.0-1.5 [facility] Comment on above: Order Comment: Speci men Type: VENOUS BLOOD SPECIMENOrdering Facility: [facility] Address: [address] [place] [address] Performed By: #### 2 4344-4 ####[facility] LABCLIA [id number] [place] [address] [place] O2 THERAPY NC = Nasal Cannula Normal [facility] Comment on above: Order Comment: Speci men Type: VENOUS BLOOD SPECIMENOrdering Facility: [facility] Address: [address] [place] [address] Performed By: #### 2 4344-4 ####[facility] LABCLIA [id number] [place] [id number] [place] Oxygen (BldV) [Partial pressure] 41 mm[Hg] Normal 35-45 [facility] Comment on above: Order Comment: Speci men Type: VENOUS BLOOD SPECIMENOrdering Facility: [facility] Address: [address] [place], [place] [address] Performed By: #### 2 4344-4 ####[facility] LABCLIA [id number] [address] [address] [place] Oxygen adjusted to patient's actual temperature (BldV) [Partial pressure] 42 mmHg Normal 35-45 [facility] Comment on above: Order Comment: Speci men Type: VENOUS BLOOD SPECIMENOrdering Facility: [facility] Address: [address] [place] [address] Performed By: #### 2 4344-4 ####[facility] LABCLIA [id number] [place] [id number] [place] Oxygen saturation in Venous blood 66 % Normal 60-85 [facility] Comment on above: Order Comment: Speci men Type: VENOUS BLOOD SPECIMENOrdering Facility: [facility] Address: [address] [place] [address] Performed By: #### 2 4344-4 ####[facility] LABCLIA [id number] [place] [id number] [place] Oxyhemoglobin (BldV) [Mass fraction] 65 % Normal 60-85 [facility] Comment on above: Order Comment: Speci men Type: VENOUS BLOOD SPECIMENOrdering Facility: [facility] Address: [address] [place] [address] Performed By: #### 2 4344-4 ####[facility] LABCLIA [id number] [place] [id number] [place] pH (BldV) 7.35 [pH] Normal 7.32-7.42 [facility] Comment on above: Order Comment: Speci men Type: VENOUS BLOOD SPECIMENOrdering Facility: [facility] Address: [address] [place], [place] [address] Performed By: #### 2 4344-4 ####[facility] LABCLIA [id number] [place] [id number] [place] pH adjusted to patient's actual temperature (BldV) 7.34 Normal 7.32-7.42 [facility] Comment on above: Order Comment: Speci men Type: VENOUS BLOOD SPECIMENOrdering Facility: [facility] Address: [address] [place] [address] Performed By: #### 2 4344-4 ####[facility] LABCLIA [id number] [place] [address] [place] Potassium [Moles/Vol] 4.6 mmol/L Normal 3.5-5.0 [facility] Comment on above: Order Comment: Speci men Type: VENOUS BLOOD SPECIMENOrdering Facility: [facility] Address: [address] [place] [address] Performed By: #### 2 4344-4 ####[facility] LABCLIA [id number] [place] [address] [place] Sodium [Moles/Vol] 133 mmol/L Low 136-144 [facility] Comment on above: Order Comment: Speci men Type: VENOUS BLOOD SPECIMENOrdering Facility: [facility] Address: [address] [place] [address] Performed By: #### 2 4344-4 ####[facility] LABCLIA [id number] [place] [address] [place] Base excess Calc (BldV) [Moles/Vol] 4 mmol/L High 0-2 [facility] Comment on above: Order Comment: Speci men Type: VENOUS BLOOD SPECIMENOrdering Facility: [facility] Address: [address] [place] [address] Performed By: #### 2 4344-4 ####[facility] LABCLIA [id number] [place] [address] [place] Calcium.ionized adjusted to pH 7.4 (BldA) [Moles/Vol] 1.17 mmol/L Normal 1.08-1.30 [facility] Comment on above: Order Comment: Speci men Type: VENOUS BLOOD SPECIMENOrdering Facility: [facility] Address: [address] [place] [address] Performed By: #### 2 4344-4 ####[facility] LABCLIA [id number] [address] [address] [place] Carboxyhemoglobin (BldV) [Mass fraction] 1.1 % Normal 0.0-2.0 [facility] Comment on above: Order Comment: Speci men Type: VENOUS BLOOD SPECIMENOrdering Facility: [facility] Address: [address] [place], [place] [address] Result Comment: Carb oxyhemoglobin Reference Range for Smokers: 2.0-8.0% Performed By: #### 2 4344-4 ####[facility] LABCLIA [id number] [address] [place] [address] [place] CO2 (BldV) [Partial pressure] 49 mm[Hg] Normal 42-55 [facility] Comment on above: Order Comment: Speci men Type: VENOUS BLOOD SPECIMENOrdering Facility: [facility] Address: [address] [place], [place] [address] Performed By: #### 2 4344-4 ####[facility] LABCLIA [id number] [address] [address] [place] CO2 adjusted to patient's actual temperature (BldV) [Partial pressure] 49 mmHg Normal 42-55 [facility] Comment on above: Order Comment: Speci men Type: VENOUS BLOOD SPECIMENOrdering Facility: [facility] Address: [address] [place] [address] Performed By: #### 2 4344-4 ####[facility] LABCLIA [id number] [address] [address] [place] Glucose [Mass/Vol] 230 mg/dL High 60-105 [facility] Comment on above: Order Comment: Speci men Type: VENOUS BLOOD SPECIMENOrdering Facility: [facility] Address: [address] [place], [place] [address] Performed By: #### 2 4344-4 ####[facility] LABCLIA [id number] [address] [address] [place] Hematocrit (Bld) [Volume fraction] 23.8 % Low 39.0-51.0 [facility] Comment on above: Order Comment: Speci men Type: VENOUS BLOOD SPECIMENOrdering Facility: [facility] Address: [address] [place] [address] Performed By: #### 2 4344-4 ####[facility] LABIA [id number] [place] [id number] [place] Hemoglobin (Bld) [Mass/Vol] 7.6 g/dL Low 13.0-17.0 [facility] Comment on above: Order Comment: Speci men Type: VENOUS BLOOD SPECIMENOrdering Facility: [facility] Address: [address] [place] [address] Performed By: #### 2 4344-4 ####[facility] LABIA [id number] [place] [id number] [place] Methemoglobin (Bld) [Mass fraction] 1.2 % Normal 0.0-1.5 [facility] Comment on above: Order Comment: Speci men Type: VENOUS BLOOD SPECIMENOrdering Facility: [facility] Address: [address] [place] [address] Performed By: #### 2 4344-4 ####[facility] LABIA [id number] [address] [address] [place] Oxygen (BldV) [Partial pressure] 43 mm[Hg] Normal 35-45 [facility] Comment on above: Order Comment: Speci men Type: VENOUS BLOOD SPECIMENOrdering Facility: [facility] Address: [address] [place], [place] [address] Performed By: #### 2 4344-4 ####[facility] LABIA [id number] [place] [id number] [place] Oxygen adjusted to patient's actual temperature (BldV) [Partial pressure] 42 mmHg Normal 35-45 [facility] Comment on above: Order Comment: Speci men Type: VENOUS BLOOD SPECIMENOrdering Facility: [facility] Address: [address] [place], [place] [address] Performed By: #### 2 4344-4 ####[facility] LABCLIA [id number] [address] [address] [place] Oxygen saturation in Venous blood 71 % Normal 60-85 [facility] Comment on above: Order Comment: Speci men Type: VENOUS BLOOD SPECIMENOrdering Facility: [facility] Address: [address] [place] [address] Performed By: #### 2 4344-4 ####[facility] LABCLIA [id number] [place] [id number] [place] Oxyhemoglobin (BldV) [Mass fraction] 70 % Normal 60-85 [facility] Comment on above: Order Comment: Speci men Type: VENOUS BLOOD SPECIMENOrdering Facility: [facility] Address: [address] [place], [place] [address] Performed By: #### 2 4344-4 ####[facility] LABCLIA [id number] [place] [id number] [place] pH (BldV) 7.38 [pH] Normal 7.32-7.42 [facility] Comment on above: Order Comment: Speci men Type: VENOUS BLOOD SPECIMENOrdering Facility: [facility] Address: [address] [place], [place] [address] Performed By: #### 2 4344-4 ####[facility] LABCLIA [id number] [place] [id number] [place] pH adjusted to patient's actual temperature (BldV) 7.39 Normal 7.32-7.42 [facility] Comment on above: Order Comment: Speci men Type: VENOUS BLOOD SPECIMENOrdering Facility: [facility] Address: [address] [place] [id number] Performed By: #### 2 4344-4 ####[facility] LABCLIA [id number] [address] [address] [place] Potassium [Moles/Vol] 4.4 mmol/L Normal 3.5-5.0 [facility] Comment on above: Order Comment: Speci men Type: VENOUS BLOOD SPECIMENOrdering Facility: [facility] Address: [address] [place] [address] Performed By: #### 2 4344-4 ####[facility] LABCLIA [id number] [place] [id number] [place] Sodium [Moles/Vol] 134 mmol/L Low 136-144 [facility] Comment on above: Order Comment: Speci men Type: VENOUS BLOOD SPECIMENOrdering Facility: [facility] Address: [address] [place] [address] Performed By: #### 2 4344-4 ####[facility] LABCLIA [id number] [address] [address] [place] Base excess Calc (BldV) [Moles/Vol] 4 mmol/L High 0-2 [facility] Comment on above: Order Comment: Speci men Type: VENOUS BLOOD SPECIMENOrdering Facility: [facility] Address: [address] [place], [place] [address] Performed By: #### 2 4344-4 ####[facility] LABCLIA [id number] [address] [address] [place] Body temperature 98.6 [degF] Normal [facility] Comment on above: Order Comment: Speci men Type: VENOUS BLOOD SPECIMENOrdering Facility: [facility] Address: [address] [place], [place] [address] Performed By: #### 2 4344-4 ####[facility] LABCLIA [id number] [address] [address] [place] Calcium.ionized (Bld) [Mass/Vol] 1.17 mmol/L Normal 1.08-1.30 [facility] Comment on above: Order Comment: Speci men Type: VENOUS BLOOD SPECIMENOrdering Facility: [facility] Address: [address] [place] [address] Performed By: #### 2 4344-4 ####[facility] [id number] [place] [address] [place] Calcium.ionized adjusted to pH 7.4 (BldA) [Moles/Vol] 1.15 mmol/L Normal 1.08-1.30 [facility] Comment on above: Order Comment: Speci men Type: VENOUS BLOOD SPECIMENOrdering Facility: [facility] Address: [address] [place] [address] Performed By: #### 2 4344-4 ####[facility] [id number] [address] STATES OF [facility] Carboxyhemoglobin (BldV) [Mass fraction] 1.2 % Normal 0.0-2.0 [facility] Comment on above: Order Comment: Speci men Type: VENOUS BLOOD SPECIMENOrdering Facility: [facility] Address: [address] [place] [address] Result Comment: Carb oxyhemoglobin Reference Range for Smokers: 2.0-8.0% Performed By: #### 2 4344-4 ####[facility] [id number] [place] [address] [place] CO2 (BldV) [Partial pressure] 51 mm[Hg] Normal 42-55 [facility] Comment on above: Order Comment: Speci men Type: VENOUS BLOOD SPECIMENOrdering Facility: [facility] Address: [address] [place] [address] Performed By: #### 2 4344-4 ####[facility] LABIA [id number] [place] [address] [place] Glucose [Mass/Vol] 209 mg/dL High 60-105 [facility] Comment on above: Order Comment: Speci men Type: VENOUS BLOOD SPECIMENOrdering Facility: [facility] Address: [address] [place] [address] Performed By: #### 2 4344-4 ####[facility] LABCLIA [id number] [facility] [address] [address] [place] HCO3 (Bld) [Moles/Vol] 29 mmol/L High 24-28 [facility] Comment on above: Order Comment: Speci men Type: VENOUS BLOOD SPECIMENOrdering Facility: [facility] Address: [address] [place] [address] Performed By: #### 2 4344-4 ####[facility] LABIA [id number] [place] [address] [place] Hematocrit (Bld) [Volume fraction] 23.2 % Low 39.0-51.0 [facility] Comment on above: Order Comment: Speci men Type: VENOUS BLOOD SPECIMENOrdering Facility: [facility] Address: [address] [place] [address] Performed By: #### 2 4344-4 ####[facility] LABIA [id number] [place] [address] [place] Hemoglobin (Bld) [Mass/Vol] 7.4 g/dL Low 13.0-17.0 [facility] Comment on above: Order Comment: Speci men Type: VENOUS BLOOD SPECIMENOrdering Facility: [facility] Address: [address] [place] [address] Performed By: #### 2 4344-4 ####[facility] LABIA [id number] [place] [id number] [place] Lactate [Moles/Vol] 0.5 mmol/L Normal 0.5-2.2 [facility] Comment on above: Order Comment: Speci men Type: VENOUS BLOOD SPECIMENOrdering Facility: [facility] Address: [address] [place] [address] Performed By: #### 2 4344-4 ####[facility] LABCLIA [id number] [place] [id number] [place] LITERS 5 Liters/min Normal [facility] Comment on above: Order Comment: Speci men Type: VENOUS BLOOD SPECIMENOrdering Facility: [facility] Address: [address] [place] [id number] Performed By: #### 2 4344-4 ####[facility] LABCLIA [id number] [place] [id number] [place] Methemoglobin (Bld) [Mass fraction] 1.4 % Normal 0.0-1.5 [facility] Comment on above: Order Comment: Speci men Type: VENOUS BLOOD SPECIMENOrdering Facility: [facility] Address: [address] [place] [address] Performed By: #### 2 4344-4 ####[facility] LABIA [id number] [place] [id number] [place] O2 THERAPY NC = Nasal Cannula Normal [facility] Comment on above: Order Comment: Speci men Type: VENOUS BLOOD SPECIMENOrdering Facility: [facility] Address: [address] [place], [place] [address] Performed By: #### 2 4344-4 ####[facility] LABCLIA [id number] [address] [address] [place] Oxygen (BldV) [Partial pressure] 40 mm[Hg] Normal 35-45 [facility] Comment on above: Order Comment: Speci men Type: VENOUS BLOOD SPECIMENOrdering Facility: [facility] Address: [address] [place] [id number] Performed By: #### 2 4344-4 ####[facility] LABCLIA [id number] [address] [address] [place] Oxygen saturation in Venous blood 67 % Normal 60-85 [facility] Comment on above: Order Comment: Speci men Type: VENOUS BLOOD SPECIMENOrdering Facility: [facility] Address: [address] [place] [address] Performed By: #### 2 4344-4 ####[facility] LABCLIA [id number] [address] [place] [address] [place] Oxyhemoglobin (BldV) [Mass fraction] 66 % Normal 60-85 [facility] Comment on above: Order Comment: Speci men Type: VENOUS BLOOD SPECIMENOrdering Facility: [facility] Address: [address] [place] [address] Performed By: #### 2 4344-4 ####[facility] LABIA [id number] [address] [address] [place] pH (BldV) 7.37 [pH] Normal 7.32-7.42 [facility] Comment on above: Order Comment: Speci men Type: VENOUS BLOOD SPECIMENOrdering Facility: [facility] Address: [address] [place], [place] [address] Performed By: #### 2 4344-4 ####[facility] LABIA [id number] [address] [address] [place] Potassium [Moles/Vol] 4.5 mmol/L Normal 3.5-5.0 [facility] Comment on above: Order Comment: Speci men Type: VENOUS BLOOD SPECIMENOrdering Facility: [facility] Address: [address] [place] [address] Performed By: #### 2 4344-4 ####[facility] LABIA [id number] [address] [address] [place] Sodium [Moles/Vol] 134 mmol/L Low 136-144 [facility] Comment on above: Order Comment: Speci men Type: VENOUS BLOOD SPECIMENOrdering Facility: [facility] Address: [address] [place] [address] Performed By: #### 2 4344-4 ####[facility] LABIA [id number] [place] [address] [place] Glucose Fld-mCncon 5 Glucose (Body fld) [Mass/Vol] 217 mg/dL Normal See Comment [facility] Comment on above: Order Comment: Speci men Type: FLUID SPECIMENOrdering Facility: [facility] Address: [address] [place] [address] Result Comment: Syno vial fluid: Synovial fluid [...] document C49A. ANDREY Bright: Clinical Laboratory Standards [place]: 2007. Performed By: #### 2 344-0, 80655-8 ####[facility] LABIA [id number] [place] [address] [place] HEMATOCRIT, FLUIDon 10-25-19 25 HEMATOCRIT, FLUID 0.0 % Normal Reference range not available [facility] Comment on above: Order Comment: Speci men Type: SPECIMEN FROM PLEURA OBTAINED BY THORACENTESISOrdering Facility: [facility] Address: [address] [place] [address] Performed By: #### F LDHCT ####[facility] LABIA [id number] [place] [address] [place] HEMATOCRIT, FLUID TYPE Pleural Cavity, Right Normal [facility] Comment on above: Order Comment: Speci men Type: SPECIMEN FROM PLEURA OBTAINED BY THORACENTESISOrdering Facility: [facility] Address: [address] [place] [address] Performed By: #### F LDHCT ####[facility] LABIA [id number] [place] [address] [place] LDH Fld-cCncon 10-24-2024 LDH (Body fld) [Catalytic activity/Vol] 73 U/L Normal See Comment [facility] Comment on above: Order Comment: Speci men Type: SPECIMEN FROM PLEURA OBTAINED BY THORACENTESISOrdering Facility: [facility] Address: [address] [place] [address] Result Comment: Pleu ral fluids: Pleural fluid [...] document C49A. Deangelo PA: Clinical Laboratory Standards [place]: 2007.Reference: 2. Stephanie SALDAÑA, Tyron Bourne. Body [...] to 533. Performed By: #### 2 881-1, 49210-3, 2529-6, 1747-5 ####[facility] LABCLIA [id number] [place] [address] [place] LDH SerPl-cCncon 10-24-2024 LDH [Catalytic activity/Vol] 415 U/L High 135-225 [facility] Comment on above: Order Comment: Speci men Type: BLOOD SPECIMENOrdering Facility: [facility] Address: [address] [place] [address] Performed By: #### 2 532-0 ####[facility] LABCLIA [id number] [address] [place] [address] [place] LDH [Catalytic activity/Vol] 383 U/L High 135-225 [facility] Comment on above: Order Comment: Speci men Type: BLOOD SPECIMENOrdering Facility: [facility] Address: [address] [place] [address] Performed By: #### C YS, 2532-0 ####[facility] LABCLIA [id number] [place] [address] [place] MANUAL DIFFERENTIAL, BODY FL UIDon 10-24-2024 DIF TTL, BODY FLUID 100 cells counted Normal [facility] Comment on above: Order Comment: Speci men Type: SPECIMEN FROM PLEURA OBTAINED BY THORACENTESISOrdering Facility: [facility] Address: [address] [place] [address] Performed By: #### C CBF, [id number] ####[facility] LABCLIA [id number] [place] [address] [place] LYMPH%, BF 51 % High 18-36 [facility] Comment on above: Order Comment: Speci men Type: SPECIMEN FROM PLEURA OBTAINED BY THORACENTESISOrdering Facility: [facility] Address: [address] [place] [address] Performed By: #### C CBF, [id number] ####[facility] LABCLIA [id number] [place] [address] [place] MESO %, BF 2 % Normal 0-2 [facility] Comment on above: Order Comment: Speci men Type: SPECIMEN FROM PLEURA OBTAINED BY THORACENTESISOrdering Facility: [facility] Address: [address] [place] [address] Performed By: #### C CBF, [id number] ####[facility] LABCLIA [id number] [address], [facility]95 [place] MONOCYTES/MACROPHAGES %, BF 22 % Low 64-80 [facility] Comment on above: Order Comment: Speci men Type: SPECIMEN FROM PLEURA OBTAINED BY THORACENTESISOrdering Facility: [facility] Address: [address] [place] [address] Performed By: #### C CBF, [id number] ####[facility] LABCLIA [id number] [address] [place] [address] [place] NEUT%, BF 25 % High 0-1 [facility] Comment on above: Order Comment: Speci men Type: SPECIMEN FROM PLEURA OBTAINED BY THORACENTESISOrdering Facility: [facility] Address: [address] [place] [address] Performed By: #### C CBF, [id number] ####[facility] LABCLIA [id number] [address] [place] [address] [place] NT-proBNP [facility] 10-24 Natriuretic peptide.B prohormone N-Terminal [Mass/Vol] 57150 pg/mL High <125 [facility] Comment on above: Order Comment: Speci men Type: BLOOD SPECIMENOrdering Facility: [facility] Address: [address] [place] [address] Performed By: #### 2 4321-2, 36831-2 ####[facility] LABCLIA [id number] [address] [place] [address] [place] PATHOLOGIST INTERPRETATION C BC/DIFFon 10-24-2024 [employer] Supervisor review Jose Carlos (Unsp spec) [Interp] No review performed. Normal [facility] Comment on above: Order Comment: Speci men Type: BLOOD SPECIMENOrdering Facility: [facility] Address: [address] [place] [address] Performed By: #### 5 7782-5, STFREV ####[facility] LABCLIA [id number] [address] [place] [address] [place] STAFF REVIEW, CBCDIF Normal [facility] Comment on above: Order Comment: Speci men Type: BLOOD SPECIMENOrdering Facility: [facility] Address: [address] [place] [address] Performed By: #### 5 7782-5, NESSA ####[facility] [id number] [place] [address] [place] PT panel Coag (PPP)on 2024 INR Coag (PPP) [Relative time] 1.2 {INR} Normal 0.9-1.3 [facility] Comment on above: Order Comment: Speci men Type: BLOOD SPECIMENOrdering Facility: [facility] Address: [address] [place] [address] Result Comment: Nettie min K Antagonist (VKA) Therapeutic Range: INR 2 to 3 (Target INR of 2.5)Note: For patients treated with VKA drugs, such as warfarin, the [employer] 2012 Guideline recommends [...] al. Chest 2012, 141:7S-47SNishfelicia RA, et al. [facility] 2017, 70: 252-289 Performed By: #### 3 4528-0, 3216-08 ####[facility] [id number] [place] [id number] [place] PT Coag (PPP) [Time] 13.1 s High 9.7-13.0 [facility] Comment on above: Order Comment: Gini nowak Type: BLOOD SPECIMENOrdering Facility: [facility] Address: [address] [place] [address] Performed By: #### 3 4528-0, 3216-08 ####[facility] LABCLIA [id number] [place] [id number] [place] Prot Fld-mCncon 10-24-2024 Protein (Body fld) [Mass/Vol] 1.1 g/dL Normal See Comment [facility] [facility] Comment on above: Order Comment: Speci men Type: SPECIMEN FROM PLEURA OBTAINED BY THORACENTESISOrdering Facility: [facility] Address: [address] [place] [address] Result Comment: Sero us fluids: Effusions are [...] document C49A. ANDREY Bright: Clinical Laboratory Standards [place]: 2007. Performed By: #### 2 881-1, 55098-9, 2529-6, 1747-5 ####[facility] LABCLIA [id number] [place] [id number] [place] Prot SerPl-mCncon 10-24-2024 Protein [Mass/Vol] 5.2 g/dL Low 6.3-8.0 [facility] Comment on above: Order Comment: Speci men Type: BLOOD SPECIMENOrdering Facility: [facility] Address: [address] [place] [address] Performed By: #### 1 751-7, 2885-2, 2093-3 ####[facility] LABCLIA [id number] [place] [id number] [place] STAPHYLOCOCCUS AUREUS AND MR SA SCREEN, PCR, NASALon 10-24-2024 S. aureus and MRSA panel GENEVA+probe (Nose) Not detected Normal Not Detected [facility] Comment on above: Order Comment: Speci men Type: SWABOrdering Facility: [facility] Address: [address] [place] [address] Performed By: #### S APCR ####[facility] LABCLIA [id number] [place] [address] [place] Trigl Fld-mCncon 10-24-2024 Triglyceride (Body fld) [Mass/Vol] 14 mg/dL Normal [facility] Comment on above: Order Comment: Speci men Type: FLUID SPECIMENOrdering Facility: [facility] Address: [address] [place] [address] Result Comment: Syno vial fluids: Synovial fluid [...] document C49A. ANDREY Bright: Clinical Laboratory Standards [place]; 2007. Performed By: #### 2 344-0, 79822-5 ####[facility] LABCLIA [id number] [place] [address] [place] Triglyceride (Body fld) [Mas s/Vol]on 10-24-2024 Fluid Nom (Body fld) Pleural Cavity, Right Normal [facility] Comment on above: Order Comment: Speci men Type: FLUID SPECIMENOrdering Facility: [facility] Address: [address] [place] [address] Performed By: #### 2 344-0, 19840-6 ####[facility] LABCLIA [id number] [place] [id number] [place] XR CHEST 1V FRONTAL PORTon 0 10-24-2024 XR CHEST 1V FRONTAL PORT Normal [facility] XR CHEST 1V FRONTAL PORT Normal [facility] aPTT PPPon 10-24-2024 aPTT Coag (PPP) [Time] 29.5 s Normal 23.0-32.4 [facility] Comment on above: Order Comment: Speci men Type: BLOOD SPECIMENOrdering Facility: [facility] Address: [address] [place] [address] Performed By: #### 3 217-7, 34785-1 ####[facility] LABCLIA [id number] [place] [address] [place] pH [place] 10-24-2024 Fluid Nom (Body fld) Pleural Cavity, Right Normal [facility] Comment on above: Order Comment: Speci men Type: SPECIMEN FROM PLEURA OBTAINED BY THORACENTESISOrdering Facility: [facility] Address: [address] [place] [address] Performed By: #### 2 748-2 ####[facility] LABCLIA [id number] [place] [address] [place] Performed By: #### 2 881-1, 56788-5, 2529-6, 1747-5 ####[facility] LABCLIA [id number] [place] [address] [place] pH (Body fld) 8.0 [pH] Normal [facility] Comment on above: Order Comment: Speci men Type: SPECIMEN FROM PLEURA OBTAINED BY THORACENTESISOrdering Facility: [facility] Address: [address] [place] [address] Result Comment: No r eference range has been established for this specimen type.This test was developed, and its performance characteristics determined by the [facility] Department of Pathology and Laboratory Medicine. It has not been cleared or approved by the FDA. The [facility] Department of Pathology and Laboratory Medicine is regulated under CLIA as qualified to perform high-complexity testing. This test is used for clinical purposes. It should not be regarded as investigational or for research. Performed By: #### 2 748-2 ####[facility] LABCLIA [id number] [place] [address] [place] ANES POSTPROC EVALon [address]PROC EV[address] Normal [facility] ANES PRE-OPon 10-23-2024 ANES PRE-OP Normal [facility] ARTERIAL BLOOD GASESon 10-23 Base excess Calc (Bld) [Moles/Vol] 3 mmol/L High 0-2 [facility] Comment on above: Order Comment: Speci men Type: ARTERIAL BLOOD SPECIMENOrdering Facility: [facility] Address: [address] [place] [address] Performed By: #### A LLBG ####[facility] LABCLIA [id number] [place] [address] [place] Body temperature 98.6 [degF] Normal [facility] Comment on above: Order Comment: Speci men Type: ARTERIAL BLOOD SPECIMENOrdering Facility: [facility] Address: [address] [place] [address] Performed By: #### A LLBG ####[facility] LABCLIA [id number] [place] [address] [place] Order Comment: Speci men Type: VENOUS BLOOD SPECIMENOrdering Facility: [facility] Address: [address] [place] [address] Performed By: #### 2 4344-4 ####[facility] LABCLIA [id number] [place] [address] [place] Calcium.ionized (Bld) [Mass/Vol] 1.14 mmol/L Normal 1.08-1.30 [facility] Comment on above: Order Comment: Speci men Type: ARTERIAL BLOOD SPECIMENOrdering Facility: [facility] Address: [address] [place] [address] Performed By: #### A LLBG ####[facility] LABIA [id number] [place] [address] [place] Calcium.ionized adjusted to pH 7.4 (BldA) [Moles/Vol] 1.16 mmol/L Normal 1.08-1.30 [facility] Comment on above: Order Comment: Speci men Type: ARTERIAL BLOOD SPECIMENOrdering Facility: [facility] Address: [address] [place] [address] Performed By: #### A LLBG ####[facility] LABIA [id number] [place] [address] [place] Carboxyhemoglobin (BldA) [Mass fraction] 1.4 % Normal 0.0-2.0 [facility] Comment on above: Order Comment: Speci men Type: ARTERIAL BLOOD SPECIMENOrdering Facility: [facility] Address: [address] [place] [address] Result Comment: Carb oxyhemoglobin Reference Range for Smokers: 2.0-8.0% Performed By: #### A LLBG ####[facility] LABIA [id number] [place] [address] [place] CO2 (Bld) [Partial pressure] 40 mm Hg Normal 36-46 [facility] Comment on above: Order Comment: Speci men Type: ARTERIAL BLOOD SPECIMENOrdering Facility: [facility] Address: [address] [place] [address] Performed By: #### A LLBG ####[facility] LABIA [id number] [place] [address] [place] Glucose [Mass/Vol] 158 mg/dL High 60-105 [facility] Comment on above: Order Comment: Speci men Type: ARTERIAL BLOOD SPECIMENOrdering Facility: [facility] Address: [address] [place] [address] Performed By: #### A LLBG ####[facility] LABCLIA [id number] [address] [place] [address] [place] HCO3 (Bld) [Moles/Vol] 26 mmol/L Normal 22-26 [facility] Comment on above: Order Comment: Speci men Type: ARTERIAL BLOOD SPECIMENOrdering Facility: [facility] Address: [address] [place] [address] Performed By: #### A LLBG ####[facility] LABCLIA [id number] [place] [address] [place] Hematocrit (Bld) [Volume fraction] 23.8 % Low 39.0-51.0 [facility] Comment on above: Order Comment: Speci men Type: ARTERIAL BLOOD SPECIMENOrdering Facility: [facility] Address: [address] [place] [address] Performed By: #### A LLBG ####[facility] LABCLIA [id number] [place] [address] [place] Hemoglobin (Bld) [Mass/Vol] 7.6 g/dL Low 13.0-17.0 [facility] Comment on above: Order Comment: Speci men Type: ARTERIAL BLOOD SPECIMENOrdering Facility: [facility] Address: [address] [place] [address] Performed By: #### A LLBG ####[facility] LABCLIA [id number] [place] [address] [place] Lactate [Moles/Vol] 1.4 mmol/L Normal 0.5-2.2 [facility] Comment on above: Order Comment: Speci men Type: ARTERIAL BLOOD SPECIMENOrdering Facility: [facility] Address: [address] [place] [address] Performed By: #### A LLBG ####[facility] LABCLIA [id number] [place] [id number] [place] LITERS 8 Liters/min Normal [facility] Comment on above: Order Comment: Speci men Type: ARTERIAL BLOOD SPECIMENOrdering Facility: [facility] Address: [address] [place], [place] [id number] Performed By: #### A LLBG ####[facility] LABCLIA [id number] [address] [place] [address] [place] Methemoglobin (Bld) [Mass fraction] 1.1 % Normal 0.0-1.5 [facility] Comment on above: Order Comment: Speci men Type: ARTERIAL BLOOD SPECIMENOrdering Facility: [facility] Address: [address] [place] [address] Performed By: #### A LLBG ####[facility] LABCLIA [id number] [address] [place] [address] [place] O2 THERAPY SFM=Simple Face Mask Normal [facility] Comment on above: Order Comment: Speci men Type: ARTERIAL BLOOD SPECIMENOrdering Facility: [facility] Address: [address] [place] [address] Performed By: #### A LLBG ####[facility] LABCLIA [id number] [address] [place] [address] [place] Order Comment: Speci men Type: VENOUS BLOOD SPECIMENOrdering Facility: [facility] Address: [address] [place] [address] Performed By: #### 2 4344-4 ####[facility] LABCLIA [id number] [address] [place] [address] [place] Oxygen (Bld) [Partial pressure] 141 mm Hg High 85-95 [facility] Comment on above: Order Comment: Speci men Type: ARTERIAL BLOOD SPECIMENOrdering Facility: [facility] Address: [address] [place], [place] [address] Performed By: #### A LLBG ####[facility] LABCLIA [id number] [address] [place] [address] [place] Oxyhemoglobin (BldA) [Mass fraction] 97 % Normal 95-98 [facility] Comment on above: Order Comment: Speci men Type: ARTERIAL BLOOD SPECIMENOrdering Facility: [facility] Address: [address] [place] [address] Performed By: #### A LLBG ####[facility] LABCLIA [id number] [address] [address] [place] pH (Bld) 7.44 [pH] Normal 7.35-7.45 [facility] Comment on above: Order Comment: Speci men Type: ARTERIAL BLOOD SPECIMENOrdering Facility: [facility] Address: [address] [place] [address] Performed By: #### A LLBG ####[facility] LABCLIA [id number] [place] [address] [place] Potassium [Moles/Vol] 4.2 mmol/L Normal 3.5-5.0 [facility] Comment on above: Order Comment: Speci men Type: ARTERIAL BLOOD SPECIMENOrdering Facility: [facility] Address: [address] [place] [address] Performed By: #### A LLBG ####[facility] LABCLIA [id number] [place] [address] [place] Sodium [Moles/Vol] 133 mmol/L Low 136-144 [facility] Comment on above: Order Comment: Speci men Type: ARTERIAL BLOOD SPECIMENOrdering Facility: [facility] Address: [address] [place] [address] Performed By: #### A LLBG ####[facility] LABCLIA [id number] [address] [address] [place] Base excess Calc (Bld) [Moles/Vol] 5 mmol/L High 0-2 [facility] Comment on above: Order Comment: Speci men Type: ARTERIAL BLOOD SPECIMENOrdering Facility: [facility] Address: [address] [place], [place] [address] Performed By: #### A LLBG ####[facility] LABCLIA [id number] [place] [address] [place] Calcium.ionized (Bld) [Mass/Vol] 1.18 mmol/L Normal 1.08-1.30 [facility] Comment on above: Order Comment: Speci men Type: ARTERIAL BLOOD SPECIMENOrdering Facility: [facility] Address: [address] [place] [address] Performed By: #### A LLBG ####[facility] LABIA [id number] [place] [address] [place] Calcium.ionized adjusted to pH 7.4 (BldA) [Moles/Vol] 1.20 mmol/L Normal 1.08-1.30 [facility] Comment on above: Order Comment: Speci men Type: ARTERIAL BLOOD SPECIMENOrdering Facility: [facility] Address: [address] [place] [address] Performed By: #### A LLBG ####[facility] LABIA [id number] [place] [address] [place] Carboxyhemoglobin (BldA) [Mass fraction] 1.7 % Normal 0.0-2.0 [facility] Comment on above: Order Comment: Speci men Type: ARTERIAL BLOOD SPECIMENOrdering Facility: [facility] Address: [address] [place] [address] Result Comment: Carb oxyhemoglobin Reference Range for Smokers: 2.0-8.0% Performed By: #### A LLBG ####[facility] LABIA [id number] [place] [address] [place] CO2 (Bld) [Partial pressure] 43 mm Hg Normal 36-46 [facility] Comment on above: Order Comment: Speci men Type: ARTERIAL BLOOD SPECIMENOrdering Facility: [facility] Address: [address] [place] [address] Performed By: #### A LLBG ####[facility] LABIA [id number] [place] [address] [place] CO2 adjusted to patient's actual temperature (Bld) [Partial pressure] 43 mmHg Normal 36-46 [facility] Comment on above: Order Comment: Speci men Type: ARTERIAL BLOOD SPECIMENOrdering Facility: [facility] Address: [address] [place] [address] Performed By: #### A LLBG ####[facility] LABCLIA [id number] [place] [address] [place] Glucose [Mass/Vol] 113 mg/dL High 60-105 [facility] Comment on above: Order Comment: Speci men Type: ARTERIAL BLOOD SPECIMENOrdering Facility: [facility] Address: [address] [place] [address] Performed By: #### A LLBG ####[facility] LABCLIA [id number] [address] [place] Hematocrit (Bld) [Volume fraction] 25.7 % Low 39.0-51.0 [facility] Comment on above: Order Comment: Speci men Type: ARTERIAL BLOOD SPECIMENOrdering Facility: [facility] Address: [address] [place] [address] Performed By: #### A LLBG ####[facility] LABCLIA [id number] [address] [place] Hemoglobin (Bld) [Mass/Vol] 8.2 g/dL Low 13.0-17.0 [facility] Comment on above: Order Comment: Speci men Type: ARTERIAL BLOOD SPECIMENOrdering Facility: [facility] Address: [address] [place] [address] Performed By: #### A LLBG ####[facility] LABCLIA [id number] [place] [address] [place] Lactate [Moles/Vol] 0.6 mmol/L Normal 0.5-2.2 [facility] Comment on above: Order Comment: Speci men Type: ARTERIAL BLOOD SPECIMENOrdering Facility: [facility] Address: [address] [place] [id number] Performed By: #### A LLBG ####[facility] LABCLIA [id number] [address] [place] [address] [place] Methemoglobin (Bld) [Mass fraction] 1.1 % Normal 0.0-1.5 [facility] Comment on above: Order Comment: Speci men Type: ARTERIAL BLOOD SPECIMENOrdering Facility: [facility] Address: [address] [place] [address] Performed By: #### A LLBG ####[facility] LABCLIA [id number] [address] [place] [address] [place] Oxygen (Bld) [Partial pressure] 73 mm Hg Low 85-95 [facility] Comment on above: Order Comment: Speci men Type: ARTERIAL BLOOD SPECIMENOrdering Facility: [facility] Address: [address] [place] [address] Performed By: #### A LLBG ####[facility] LABCLIA [id number] [address] [place] [address] [place] Oxygen adjusted to patient's actual temperature (Bld) [Partial pressure] 72 mmHg Low 85-95 [facility] Comment on above: Order Comment: Speci men Type: ARTERIAL BLOOD SPECIMENOrdering Facility: [facility] Address: [address] [place] [address] Performed By: #### A LLBG ####[facility] LABCLIA [id number] [address] [place] [address] [place] Oxyhemoglobin (BldA) [Mass fraction] 92 % Low 95-98 [facility] Comment on above: Order Comment: Speci men Type: ARTERIAL BLOOD SPECIMENOrdering Facility: [facility] Address: [address] [place], [place] [address] Performed By: #### A LLBG ####[facility] LABCLIA [id number] [address] [place] [address] [place] pH (Bld) 7.45 [pH] Normal 7.35-7.45 [facility] Comment on above: Order Comment: Speci men Type: ARTERIAL BLOOD SPECIMENOrdering Facility: [facility] Address: [address] [place] [address] Performed By: #### A LLBG ####[facility] LABCLIA [id number] [place] [address] [place] pH adjusted to patient's actual temperature (Bld) 7.45 Normal 7.35-7.45 [facility] Comment on above: Order Comment: Speci men Type: ARTERIAL BLOOD SPECIMENOrdering Facility: [facility] Address: [address] [place] [address] Performed By: #### A LLBG ####[facility] LABIA [id number] [place] [address] [place] Potassium [Moles/Vol] 4.5 mmol/L Normal 3.5-5.0 [facility] Comment on above: Order Comment: Speci men Type: ARTERIAL BLOOD SPECIMENOrdering Facility: [facility] Address: [address] [place] [address] Performed By: #### A LLBG ####[facility] LABCLIA [id number] [place] [address] [place] Sodium [Moles/Vol] 134 mmol/L Low 136-144 [facility] Comment on above: Order Comment: Speci men Type: ARTERIAL BLOOD SPECIMENOrdering Facility: [facility] Address: [address] [place] [address] Performed By: #### A LLBG ####[facility] LABCLIA [id number] [place] [address] [place] Base excess Calc (Bld) [Moles/Vol] 6 mmol/L High 0-2 [facility] Comment on above: Order Comment: Speci men Type: ARTERIAL BLOOD SPECIMENOrdering Facility: [facility] Address: [address] [place] [address] Performed By: #### A LLBG ####[facility] [id number] [place] [address] [place] Calcium.ionized (Bld) [Mass/Vol] 1.17 mmol/L Normal 1.08-1.30 [facility] Comment on above: Order Comment: Speci men Type: ARTERIAL BLOOD SPECIMENOrdering Facility: [facility] Address: [address] [place] [address] Performed By: #### A LLBG ####[facility] [id number] [place] [address] [place] Calcium.ionized adjusted to pH 7.4 (BldA) [Moles/Vol] 1.21 mmol/L Normal 1.08-1.30 [facility] Comment on above: Order Comment: Speci men Type: ARTERIAL BLOOD SPECIMENOrdering Facility: [facility] Address: [address] [place] [address] Performed By: #### A LLBG ####[facility] [id number] [place] [address] [place] Carboxyhemoglobin (BldA) [Mass fraction] 1.5 % Normal 0.0-2.0 [facility] Comment on above: Order Comment: Speci men Type: ARTERIAL BLOOD SPECIMENOrdering Facility: [facility] Address: [address] [place] [address] Result Comment: Carb oxyhemoglobin Reference Range for Smokers: 2.0-8.0% Performed By: #### A LLBG ####[facility] [id number] [place] [address] [place] CO2 (Bld) [Partial pressure] 42 mm Hg Normal 36-46 [facility] Comment on above: Order Comment: Speci men Type: ARTERIAL BLOOD SPECIMENOrdering Facility: [facility] Address: [address] [place] [address] Performed By: #### A LLBG ####[facility] LABCLIA [id number] [place] [address] [place] Hematocrit (Bld) [Volume fraction] 26.3 % Low 39.0-51.0 [facility] Comment on above: Order Comment: Speci men Type: ARTERIAL BLOOD SPECIMENOrdering Facility: [facility] Address: [address] [place] [address] Performed By: #### A LLBG ####[facility] LABIA [id number] [place] [address] [place] Hemoglobin (Bld) [Mass/Vol] 8.5 g/dL Low 13.0-17.0 [facility] Comment on above: Order Comment: Speci men Type: ARTERIAL BLOOD SPECIMENOrdering Facility: [facility] Address: [address] [place] [address] Performed By: #### A LLBG ####[facility] LABIA [id number] [place] [address] [place] Lactate [Moles/Vol] 0.6 mmol/L Normal 0.5-2.2 [facility] Comment on above: Order Comment: Speci men Type: ARTERIAL BLOOD SPECIMENOrdering Facility: [facility] Address: [address] [place] [address] Performed By: #### A LLBG ####[facility] LABIA [id number] [place] [address] [place] Methemoglobin (Bld) [Mass fraction] 0.4 % Normal 0.0-1.5 [facility] Comment on above: Order Comment: Speci men Type: ARTERIAL BLOOD SPECIMENOrdering Facility: [facility] Address: [address] [place] [address] Performed By: #### A LLBG ####[facility] LABIA [id number] [place] [address] [place] Oxygen (Bld) [Partial pressure] 126 mm Hg High 85-95 [facility] Comment on above: Order Comment: Speci men Type: ARTERIAL BLOOD SPECIMENOrdering Facility: [facility] Address: [address] [place] [address] Performed By: #### A LLBG ####[facility] LABCLIA [id number] [address] [address] [place] Oxyhemoglobin (BldA) [Mass fraction] 98 % Normal 95-98 [facility] Comment on above: Order Comment: Speci men Type: ARTERIAL BLOOD SPECIMENOrdering Facility: [facility] Address: [address] [place] [address] Performed By: #### A LLBG ####[facility] LABCLIA [id number] [place] [id number] [place] pH (Bld) 7.46 [pH] High 7.35-7.45 [facility] Comment on above: Order Comment: Speci men Type: ARTERIAL BLOOD SPECIMENOrdering Facility: [facility] Address: [address] [place] [address] Performed By: #### A LLBG ####[facility] LABIA [id number] [place] [id number] [place] Potassium [Moles/Vol] 4.6 mmol/L Normal 3.5-5.0 [facility] Comment on above: Order Comment: Speci men Type: ARTERIAL BLOOD SPECIMENOrdering Facility: [facility] Address: [address] [place] [address] Performed By: #### A LLBG ####[facility] LABCLIA [id number] [place] [id number] [place] Sodium [Moles/Vol] 133 mmol/L Low 136-144 [facility] Comment on above: Order Comment: Speci men Type: ARTERIAL BLOOD SPECIMENOrdering Facility: [facility] Address: [address] [place] [address] Performed By: #### A LLBG ####[facility] LABCLIA [id number] [place] [address] [place] Base excess Calc (Bld) [Moles/Vol] 6 mmol/L High 0-2 [facility] Comment on above: Order Comment: Speci men Type: ARTERIAL BLOOD SPECIMENOrdering Facility: [facility] Address: [address] [place] [address] Performed By: #### A LLBG ####[facility] LABIA [id number] [place] [address] [place] Body temperature 98.6 [degF] Normal [facility] Comment on above: Order Comment: Speci men Type: ARTERIAL BLOOD SPECIMENOrdering Facility: [facility] Address: [address] [place] [address] Performed By: #### A LLBG ####[facility] LABIA [id number] [place] [address] [place] Calcium.ionized (Bld) [Mass/Vol] 1.16 mmol/L Normal 1.08-1.30 [facility] Comment on above: Order Comment: Speci men Type: ARTERIAL BLOOD SPECIMENOrdering Facility: [facility] Address: [address] [place] [address] Performed By: #### A LLBG ####[facility] LABIA [id number] [place] [address] [place] [place] Calcium.ionized adjusted to pH 7.4 (BldA) [Moles/Vol] 1.18 mmol/L Normal 1.08-1.30 [facility] Comment on above: Order Comment: Speci men Type: ARTERIAL BLOOD SPECIMENOrdering Facility: [facility] Address: [address] [place] [address] Performed By: #### A LLBG ####[facility] LABIA [id number] [place] [address] [place] Carboxyhemoglobin (BldA) [Mass fraction] 1.5 % Normal 0.0-2.0 [facility] Comment on above: Order Comment: Speci men Type: ARTERIAL BLOOD SPECIMENOrdering Facility: [facility] Address: [address] [place] [address] Result Comment: Carb oxyhemoglobin Reference Range for Smokers: 2.0-8.0% Performed By: #### A LLBG ####[facility] LABCLIA [id number] [place] [address] [place] CO2 (Bld) [Partial pressure] 47 mm Hg High 36-46 [facility] Comment on above: Order Comment: Speci men Type: ARTERIAL BLOOD SPECIMENOrdering Facility: [facility] Address: [address] [place] [address] Performed By: #### A LLBG ####[facility] LABCLIA [id number] [place] [address] [place] Glucose [Mass/Vol] 99 mg/dL Normal 60-105 [facility] Comment on above: Order Comment: Speci men Type: ARTERIAL BLOOD SPECIMENOrdering Facility: [facility] Address: [address] [place] [address] Performed By: #### A LLBG ####[facility] LABCLIA [id number] [place] [id number] [place] HCO3 (Bld) [Moles/Vol] 30 mmol/L High 22-26 [facility] Comment on above: Order Comment: Speci men Type: ARTERIAL BLOOD SPECIMENOrdering Facility: [facility] Address: [address] [place] [address] Performed By: #### A LLBG ####[facility] LABCLIA [id number] [place] [id number] [place] Hematocrit (Bld) [Volume fraction] 25.9 % Low 39.0-51.0 [facility] Comment on above: Order Comment: Speci men Type: ARTERIAL BLOOD SPECIMENOrdering Facility: [facility] Address: [address] [place] [address] Performed By: #### A LLBG ####[facility] LABCLIA [id number] [place] [address] [place] Hemoglobin (Bld) [Mass/Vol] 8.3 g/dL Low 13.0-17.0 [facility] Comment on above: Order Comment: Speci men Type: ARTERIAL BLOOD SPECIMENOrdering Facility: [facility] Address: [address] [place] [address] Performed By: #### A LLBG ####[facility] LABCLIA [id number] [place] [address] [place] Lactate [Moles/Vol] 0.8 mmol/L Normal 0.5-2.2 [facility] Comment on above: Order Comment: Speci men Type: ARTERIAL BLOOD SPECIMENOrdering Facility: [facility] Address: [address] [place] [address] Performed By: #### A LLBG ####[facility] LABIA [id number] [place] [address] [place] LITERS 3 Liters/min Normal [facility] Comment on above: Order Comment: Speci men Type: ARTERIAL BLOOD SPECIMENOrdering Facility: [facility] Address: [address] [place] [address] Performed By: #### A LLBG ####[facility] LABCLIA [id number] [place] [id number] [place] Methemoglobin (Bld) [Mass fraction] 0.8 % Normal 0.0-1.5 [facility] Comment on above: Order Comment: Speci men Type: ARTERIAL BLOOD SPECIMENOrdering Facility: [facility] Address: [address] [place] [address] Performed By: #### A LLBG ####[facility] LABCLIA [id number] [place] [id number] [place] O2 THERAPY NC = Nasal Cannula Normal [facility] Comment on above: Order Comment: Speci men Type: ARTERIAL BLOOD SPECIMENOrdering Facility: [facility] Address: [address] [place] [address] Performed By: #### A LLBG ####[facility] LABCLIA [id number] [place] [id number] [place] Oxygen (Bld) [Partial pressure] 99 mm Hg High 85-95 [facility] Comment on above: Order Comment: Speci men Type: ARTERIAL BLOOD SPECIMENOrdering Facility: [facility] Address: [address] [place] [address] Performed By: #### A LLBG ####[facility] LABCLIA [id number] [place] [id number] [place] Oxyhemoglobin (BldA) [Mass fraction] 96 % Normal 95-98 [facility] Comment on above: Order Comment: Speci men Type: ARTERIAL BLOOD SPECIMENOrdering Facility: [facility] Address: [address] [place] [address] Performed By: #### A LLBG ####[facility] LABCLIA [id number] [place] [address] [place] pH (Bld) 7.42 [pH] Normal 7.35-7.45 [facility] Comment on above: Order Comment: Speci men Type: ARTERIAL BLOOD SPECIMENOrdering Facility: [facility] Address: [address] [place] [address] Performed By: #### A LLBG ####[facility] LABIA [id number] [place] [id number] [place] Potassium [Moles/Vol] 4.7 mmol/L Normal 3.5-5.0 [facility] Comment on above: Order Comment: Speci men Type: ARTERIAL BLOOD SPECIMENOrdering Facility: [facility] Address: [address] [place] [address] Performed By: #### A LLBG ####[facility] LABCLIA [id number] [place] [address] [place] Sodium [Moles/Vol] 133 mmol/L Low 136-144 [facility] Comment on above: Order Comment: Speci men Type: ARTERIAL BLOOD SPECIMENOrdering Facility: [facility] Address: [address] [place] [address] Performed By: #### A LLBG ####[facility] LABCLIA [id number] [place] [address] [place] ARTERIAL BLOOD GASES WITH IO NIZED MAGNESIUMon 10-23-2024 Base excess Calc (Bld) [Moles/Vol] 4 mmol/L High 0-2 [facility] Comment on above: Order Comment: Speci men Type: ARTERIAL BLOOD SPECIMENOrdering Facility: [facility] Address: [address] [place] [address] Performed By: #### A LLMG ####[facility] [id number] [place] [address] [place] Calcium.ionized (Bld) [Mass/Vol] 1.16 mmol/L Normal 1.08-1.30 [facility] Comment on above: Order Comment: Speci men Type: ARTERIAL BLOOD SPECIMENOrdering Facility: [facility] Address: [address] [place] [address] Performed By: #### A LLMG ####[facility] LABCLIA [id number] [place] [address] [place] Calcium.ionized adjusted to pH 7.4 (BldA) [Moles/Vol] 1.19 mmol/L Normal 1.08-1.30 [facility] Comment on above: Order Comment: Speci men Type: ARTERIAL BLOOD SPECIMENOrdering Facility: [facility] Address: [address] [place] [address] Performed By: #### A LLMG ####[facility] LABCLIA [id number] [place] [address] [place] Carboxyhemoglobin (BldA) [Mass fraction] 1.5 % Normal 0.0-2.0 [facility] Comment on above: Order Comment: Speci men Type: ARTERIAL BLOOD SPECIMENOrdering Facility: [facility] Address: [address] [place] [address] Result Comment: Carb oxyhemoglobin Reference Range for Smokers: 2.0-8.0% Performed By: #### A LLMG ####[facility] LABCLIA [id number] [place] [address] [place] CO2 (Bld) [Partial pressure] 41 mm Hg Normal 36-46 [facility] Comment on above: Order Comment: Speci men Type: ARTERIAL BLOOD SPECIMENOrdering Facility: [facility] Address: [address] [place] [address] Performed By: #### A LLMG ####[facility] LABCLIA [id number] [place] [address] [place] CO2 adjusted to patient's actual temperature (Bld) [Partial pressure] 41 mmHg Normal 36-46 [facility] Comment on above: Order Comment: Speci men Type: ARTERIAL BLOOD SPECIMENOrdering Facility: [facility] Address: [address] [place] [address] Performed By: #### A LLMG ####[facility] LABCLIA [id number] [place] [address] [place] Glucose [Mass/Vol] 131 mg/dL High 60-105 [facility] Comment on above: Order Comment: Speci men Type: ARTERIAL BLOOD SPECIMENOrdering Facility: [facility] Address: [address] [place] [address] Performed By: #### A LLMG ####[facility] LABCLIA [id number] [place] [id number] [place] HCO3 (Bld) [Moles/Vol] 28 mmol/L High 22-26 [facility] Comment on above: Order Comment: Speci men Type: ARTERIAL BLOOD SPECIMENOrdering Facility: [facility] Address: [address] [place] [address] Performed By: #### A LLMG ####[facility] LABIA [id number] [place] [address] [place] Hematocrit (Bld) [Volume fraction] 26.4 % Low 39.0-51.0 [facility] Comment on above: Order Comment: Speci men Type: ARTERIAL BLOOD SPECIMENOrdering Facility: [facility] Address: [address] [place] [address] Performed By: #### A LLMG ####[facility] LABIA [id number] [place] [address] [place] Hemoglobin (Bld) [Mass/Vol] 8.5 g/dL Low 13.0-17.0 [facility] Comment on above: Order Comment: Speci men Type: ARTERIAL BLOOD SPECIMENOrdering Facility: [facility] Address: [address] [place] [address] Performed By: #### A LLMG ####[facility] LABIA [id number] [place] [address] [place] Lactate [Moles/Vol] 1.2 mmol/L Normal 0.5-2.2 [facility] Comment on above: Order Comment: Speci men Type: ARTERIAL BLOOD SPECIMENOrdering Facility: [facility] Address: [address] [place] [address] Performed By: #### A LLMG ####[facility] LABIA [id number] [place] [address] [place] Magnesium [Moles/Vol] 0.56 mmol/L Normal 0.45-0.60 [facility] Comment on above: Order Comment: Speci men Type: ARTERIAL BLOOD SPECIMENOrdering Facility: [facility] Address: [address] [place] [address] Performed By: #### A LLMG ####[facility] LABCLIA [id number] [address] [place] [address] [place] Methemoglobin (Bld) [Mass fraction] 1.7 % High 0.0-1.5 [facility] Comment on above: Order Comment: Speci men Type: ARTERIAL BLOOD SPECIMENOrdering Facility: [facility] Address: [address] [place] [address] Performed By: #### A LLMG ####[facility] LABCLIA [id number] [address] [place] [address] [place] Oxygen (Bld) [Partial pressure] 85 mm Hg Normal 85-95 [facility] Comment on above: Order Comment: Speci men Type: ARTERIAL BLOOD SPECIMENOrdering Facility: [facility] Address: [address] [place] [address] Performed By: #### A LLMG ####[facility] LABCLIA [id number] [address], [facility] [place] Oxygen adjusted to patient's actual temperature (Bld) [Partial pressure] 85 mmHg Normal 85-95 [facility] Comment on above: Order Comment: Speci men Type: ARTERIAL BLOOD SPECIMENOrdering Facility: [facility] Address: [address] [place] [address] Performed By: #### A LLMG ####[facility] LABCLIA [id number] [address] [place] [address] [place] Oxyhemoglobin (BldA) [Mass fraction] 94 % Low 95-98 [facility] Comment on above: Order Comment: Speci men Type: ARTERIAL BLOOD SPECIMENOrdering Facility: [facility] Address: [address] [place] [address] Performed By: #### A LLMG ####[facility] LABCLIA [id number] [address] [address] [place] pH (Bld) 7.45 [pH] Normal 7.35-7.45 [facility] Comment on above: Order Comment: Speci men Type: ARTERIAL BLOOD SPECIMENOrdering Facility: [facility] Address: [address] [place] [address] Performed By: #### A LLMG ####[facility] LABCLIA [id number] [address] [address] [place] pH adjusted to patient's actual temperature (Bld) 7.45 Normal 7.35-7.45 [facility] Comment on above: Order Comment: Speci men Type: ARTERIAL BLOOD SPECIMENOrdering Facility: [facility] Address: [address] [place] [address] Performed By: #### A LLMG ####[facility] LABIA [id number] [place] [address] [place] Potassium [Moles/Vol] 4.7 mmol/L Normal 3.5-5.0 [facility] Comment on above: Order Comment: Speci men Type: ARTERIAL BLOOD SPECIMENOrdering Facility: [facility] Address: [address] [place] [address] Performed By: #### A LLMG ####[facility] LABIA [id number] [place] [address] [place] Sodium [Moles/Vol] 132 mmol/L Low 136-144 [facility] Comment on above: Order Comment: Speci men Type: ARTERIAL BLOOD SPECIMENOrdering Facility: [facility] Address: [address] [place] [address] Performed By: #### A LLMG ####[facility] LABIA [id number] [place] [id number] [place] CBC panel Auto (Bld)on 10-23 Erythrocyte distribution width (RBC) [Ratio] 17.4 % High 11.5-15.0 [facility] Comment on above: Order Comment: Speci men Type: BLOOD SPECIMENOrdering Facility: [facility] Address: [address] [place] [address] Performed By: #### 5 8410-2 ####[facility] LABCLIA [id number] [place] [address] [place] Hematocrit (Bld) [Volume fraction] 23.2 % Low 39.0-51.0 [facility] Comment on above: Order Comment: Speci men Type: BLOOD SPECIMENOrdering Facility: [facility] Address: [address] [place] [address] Performed By: #### 5 8410-2 ####[facility] LABIA [id number] [place] [address] [place] Hemoglobin (Bld) [Mass/Vol] 7.2 g/dL Low 13.0-17.0 [facility] Comment on above: Order Comment: Speci men Type: BLOOD SPECIMENOrdering Facility: [facility] Address: [address] [place] [address] Performed By: #### 5 8410-2 ####[facility] LABIA [id number] [place] [address] [place] MCH (RBC) [Entitic mass] 31.7 pg Normal 26.0-34.0 [facility] Comment on above: Order Comment: Speci men Type: BLOOD SPECIMENOrdering Facility: [facility] Address: [address] [place] [address] Performed By: #### 5 8410-2 ####[facility] LABIA [id number] [place] [address] [place] MCHC (RBC) [Mass/Vol] 31.0 g/dL Normal 30.5-36.0 [facility] Comment on above: Order Comment: Speci men Type: BLOOD SPECIMENOrdering Facility: [facility] Address: [address] [place] [address] Performed By: #### 5 8410-2 ####[facility] LABCLIA [id number] [place] [address] [place] MCV (RBC) [Entitic vol] 102.2 fL High 80.0-100.0 C [facility] Comment on above: Order Comment: Speci men Type: BLOOD SPECIMENOrdering Facility: [facility] Address: [address] [place] [address] Performed By: #### 5 8410-2 ####[facility] LABCLIA [id number] [place] [address] [place] Nucleated RBC (Bld) [#/Vol] 10*3/uL Normal <0.01 [facility] Comment on above: Order Comment: Speci men Type: BLOOD SPECIMENOrdering Facility: [facility] Address: [address] [place] [address] Performed By: #### 5 8410-2 ####[facility] LABIA [id number] [place] [address] [place] Platelet mean volume (Bld) [Entitic vol] 11.7 fL Normal 9.0-12.7 [facility] Comment on above: Order Comment: Speci men Type: BLOOD SPECIMENOrdering Facility: [facility] Address: [address] [place] [address] Performed By: #### 5 8410-2 ####[facility] LABIA [id number] [place] [address] [place] Platelets (Bld) [#/Vol] 86 10*3/uL Low 150-400 C [facility] Comment on above: Order Comment: Speci men Type: BLOOD SPECIMENOrdering Facility: [facility] Address: [address] [place] [address] Result Comment: No c lot detected.Results checked and verified. Performed By: #### 5 8410-2 ####[facility] LABCLIA [id number] [place] [address] [place] RBC (Bld) [#/Vol] 2.27 10*6/uL Low 4.20-6.00 [facility] Comment on above: Order Comment: Speci men Type: BLOOD SPECIMENOrdering Facility: [facility] Address: [address] [place] [address] Performed By: #### 5 8410-2 ####[facility] LABCLIA [id number] [place] [address] [place] WBC (Bld) [#/Vol] 5.50 10*3/uL Normal 3.70-11.00 [facility] Comment on above: Order Comment: Speci men Type: BLOOD SPECIMENOrdering Facility: [facility] Address: [address] [place] [address] Performed By: #### 5 8410-2 ####[facility] LABCLIA [id number] [place] [address] [place] Erythrocyte distribution width (RBC) [Ratio] 17.5 % High 11.5-15.0 [facility] Comment on above: Order Comment: Speci men Type: BLOOD SPECIMENOrdering Facility: [facility] Address: [address] [place] [address] Performed By: #### 5 8410-2 ####[facility] LABCLIA [id number] [place] [address] [place] Hematocrit (Bld) [Volume fraction] 24.2 % Low 39.0-51.0 [facility] Comment on above: Order Comment: Speci men Type: BLOOD SPECIMENOrdering Facility: [facility] Address: [address] [place] [address] Performed By: #### 5 8410-2 ####[facility] LABCLIA [id number] [place] [address] [place] Hemoglobin (Bld) [Mass/Vol] 8.0 g/dL Low 13.0-17.0 [facility] Comment on above: Order Comment: Speci men Type: BLOOD SPECIMENOrdering Facility: [facility] Address: [address] [place] [address] Performed By: #### 5 8410-2 ####[facility] LABIA [id number] [place] [address] [place] [facility] MCH (RBC) [Entitic mass] 32.0 pg Normal 26.0-34.0 [facility] Comment on above: Order Comment: Speci men Type: BLOOD SPECIMENOrdering Facility: [facility] Address: [address] [place] [address] Performed By: #### 5 8410-2 ####[facility] LABIA [id number] [place] [address] [place] MCHC (RBC) [Mass/Vol] 33.1 g/dL Normal 30.5-36.0 [facility] Comment on above: Order Comment: Speci men Type: BLOOD SPECIMENOrdering Facility: [facility] Address: [address] [place] [address] Performed By: #### 5 8410-2 ####[facility] LABIA [id number] [place] [address] [place] MCV (RBC) [Entitic vol] 96.8 fL Normal 80.0-100.0 C [facility] Comment on above: Order Comment: Speci men Type: BLOOD SPECIMENOrdering Facility: [facility] Address: [address] [place] [address] Performed By: #### 5 8410-2 ####[facility] LABIA [id number] [address] [place] Nucleated RBC (Bld) [#/Vol] 10*3/uL Normal <0.01 [facility] Comment on above: Order Comment: Speci men Type: BLOOD SPECIMENOrdering Facility: [facility] Address: [address] [place] [address] Performed By: #### 5 8410-2 ####[facility] LABCLIA [id number] [place] [address] [place] Platelet mean volume (Bld) [Entitic vol] 12.3 fL Normal 9.0-12.7 [facility] Comment on above: Order Comment: Speci men Type: BLOOD SPECIMENOrdering Facility: [facility] Address: [address] [place] [address] Performed By: #### 5 8410-2 ####[facility] LABCLIA [id number] [place] [address] [place] Platelets (Bld) [#/Vol] 110 10*3/uL Low 150-400 [facility] Comment on above: Order Comment: Speci men Type: BLOOD SPECIMENOrdering Facility: [facility] Address: [address] [place] [address] Result Comment: No c lot detected.Results checked and verified. Performed By: #### 5 8410-2 ####[facility] LABCLIA [id number] [place] [address] [place] RBC (Bld) [#/Vol] 2.50 10*6/uL Low 4.20-6.00 [facility] Comment on above: Order Comment: Speci men Type: BLOOD SPECIMENOrdering Facility: [facility] Address: [address] [place] [address] Performed By: #### 5 8410-2 ####[facility] LABCLIA [id number] [place] [address] [place] WBC (Bld) [#/Vol] 6.38 10*3/uL Normal 3.70-11.00 [facility] Comment on above: Order Comment: Speci men Type: BLOOD SPECIMENOrdering Facility: [facility] Address: [address] [place] [address] Performed By: #### 5 8410-2 ####[facility] LABCLIA [id number] [place] [id number] [place] Comprehensive metabolic 2000 panelon 10-23-2024 Albumin [Mass/Vol] 2.3 g/dL Low 3.9-4.9 [facility] Comment on above: Order Comment: Speci men Type: BLOOD SPECIMENOrdering Facility: [facility] Address: [address] [place], [place] [address] Performed By: #### 2 4323-8, 55135-3, 4542-7, 2777-1 ####[facility] LABCLIA [id number] [place] [id number] [place] ALP [Catalytic activity/Vol] 74 U/L Normal 38-113 [facility] Comment on above: Order Comment: Speci men Type: BLOOD SPECIMENOrdering Facility: [facility] Address: [address] [place] [address] Performed By: #### 2 4323-8, 59804-2, 4542-7, 2777-1 ####[facility] LABCLIA [id number] [place] [address] [place] ALT [Catalytic activity/Vol] 13 U/L Normal 10-54 [facility] Comment on above: Order Comment: Speci men Type: BLOOD SPECIMENOrdering Facility: [facility] Address: [address] [place] [address] Performed By: #### 2 4323-8, 63430-7, 4542-7, 2777-1 ####[facility] LABCLIA [id number] [place] [id number] [place] Anion gap [Moles/Vol] 9 mmol/L Normal 8-15 [facility] Comment on above: Order Comment: Speci men Type: BLOOD SPECIMENOrdering Facility: [facility] Address: [address] [place], [place] [address] Performed By: #### 2 4323-8, 51495-4, 4542-7, 2777-1 ####[facility] LABCLIA [id number] [address] [address] [place] AST [Catalytic activity/Vol] 29 U/L Normal 14-40 [facility] Comment on above: Order Comment: Speci men Type: BLOOD SPECIMENOrdering Facility: [facility] Address: [address] [place] [address] Performed By: #### 2 4323-8, 02293-8, 4542-7, 2777-1 ####[facility] LABCLIA [id number] [place] [address] [place] Bilirubin [Mass/Vol] 0.2 mg/dL Normal 0.2-1.3 [facility] Comment on above: Order Comment: Speci men Type: BLOOD SPECIMENOrdering Facility: [facility] Address: [address] [place] [address] Performed By: #### 2 4323-8, 31638-1, 4542-7, 2777-1 ####[facility] LABCLIA [id number] [place] [address] [place] Calcium [Mass/Vol] 7.9 mg/dL Low 8.5-10.2 [facility] Comment on above: Order Comment: Speci men Type: BLOOD SPECIMENOrdering Facility: [facility] Address: [address] [place] [address] Performed By: #### 2 4323-8, 17246-6, 4542-7, 2777-1 ####[facility] LABCLIA [id number] [place] [address] [place] Chloride [Moles/Vol] 99 mmol/L Normal 98-107 [facility] Comment on above: Order Comment: Speci men Type: BLOOD SPECIMENOrdering Facility: [facility] Address: [address] [place] [address] Performed By: #### 2 4323-8, 90561-6, 4542-7, 2777-1 ####[facility] LABCLIA [id number] [place] [id number] [place] CO2 [Moles/Vol] 26 mmol/L Normal 22-30 [facility] Comment on above: Order Comment: Speci men Type: BLOOD SPECIMENOrdering Facility: [facility] Address: [address] [place] [address] Performed By: #### 2 4323-8, 62060-9, 4542-7, 2777-1 ####[facility] LABCLIA [id number] [place] [id number] [place] Creatinine [Mass/Vol] 1.39 mg/dL High 0.73-1.22 [facility] Comment on above: Order Comment: Speci men Type: BLOOD SPECIMENOrdering Facility: [facility] Address: [address] [place] [address] Performed By: #### 2 4323-8, 09896-5, 4542-7, 2777- ####[facility] LABIA [id number] [place] [address] [place] eGFRcr SerPlBld CKD-EPI 2020 57 mL/min/1.73m??? Low >=60 [facility] Comment on above: Order Comment: Speci men Type: BLOOD SPECIMENOrdering Facility: [facility] Address: [address] [place] [address] Result Comment: Gurwinder mated Glomerular Filtration Rate [...] actual GFR. Performed By: #### 2 4323-8, 67654-8, 4542-7, 2777-1 ####[facility] LABCLIA [id number] [address] [address] [place] Glucose [Mass/Vol] 212 mg/dL High 74-99 [facility] Comment on above: Order Comment: Speci men Type: BLOOD SPECIMENOrdering Facility: [facility] Address: [address] [place] [address] Result Comment: The [place] [employer] (ADA) provides guidance for cutoff [...] Standards of Medical Care in Diabetes 2016, [place] [employer]. Diabetes Care. 2016.39(Suppl 1). Performed By: #### 2 4323-8, 51358-5, 4542-7, 2777-1 ####[facility] LABCLIA [id number] [place] [address] [place] Potassium [Moles/Vol] 5.0 mmol/L Normal 3.7-5.1 [facility] Comment on above: Order Comment: Gini nowak Type: BLOOD SPECIMENOrdering Facility: [facility] Address: [address] [place] [address] Performed By: #### 2 4323-8, 55878-4, 4542-7, 2777-1 ####[facility] LABCLIA [id number] [place] [address] [place] Protein [Mass/Vol] 4.5 g/dL Low 6.3-8.0 [facility] Comment on above: Order Comment: Gini nowak Type: BLOOD SPECIMENOrdering Facility: [facility] Address: [address] [place] [address] Performed By: #### 2 4323-8, 55609-3, 4542-7, 2777-1 ####[facility] LABCLIA [id number] [place] [id number] [place] Sodium [Moles/Vol] 134 mmol/L Low 136-144 [facility] Comment on above: Order Comment: Speci men Type: BLOOD SPECIMENOrdering Facility: [facility] Address: [address] [place] [address] Performed By: #### 2 4323-8, 15673-0, 4542-7, 277-1 ####[facility] LABCLIA [id number] [place] [address] [place] Urea nitrogen [Mass/Vol] 19 mg/dL Normal 9-24 [facility] Comment on above: Order Comment: Speci men Type: BLOOD SPECIMENOrdering Facility: [facility] Address: [address] [place] [address] Performed By: #### 2 4323-8, 11969-3, 4542-7, 2776-1 ####[facility] LABCLIA [id number] [place] [address] [place] Albumin [Mass/Vol] 2.6 g/dL Low 3.9-4.9 [facility] Comment on above: Order Comment: Speci men Type: BLOOD SPECIMENOrdering Facility: [facility] Address: [address] [place] [address] Performed By: #### 1 9123-9, 2777-1, 08797-4 ####[facility] LABCLIA [id number] [place] [address] [place] ALP [Catalytic activity/Vol] 90 U/L Normal 38-113 [facility] Comment on above: Order Comment: Speci men Type: BLOOD SPECIMENOrdering Facility: [facility] Address: [address] [place] [address] Performed By: #### 1 9123-9, 2777-1, 60723-8 ####[facility] LABCLIA [id number] [place] [id number] [place] ALT [Catalytic activity/Vol] 12 U/L Normal 10-54 [facility] Comment on above: Order Comment: Speci men Type: BLOOD SPECIMENOrdering Facility: [facility] Address: [address] [place] [address] Performed By: #### 1 9123-9, 27708-08, 00365-6 ####[facility] LABCLIA [id number] [facility] [place] [id number] [place] Anion gap [Moles/Vol] 9 mmol/L Normal 8-15 [facility] Comment on above: Order Comment: Speci men Type: BLOOD SPECIMENOrdering Facility: [facility] Address: [address] [place] [address] Performed By: #### 1 9123-9, 27708-08, 76828-7 ####[facility] LABCLIA [id number] [place] [address] [place] AST [Catalytic activity/Vol] 28 U/L Normal 14-40 [facility] Comment on above: Order Comment: Speci men Type: BLOOD SPECIMENOrdering Facility: [facility] Address: [address] [place] [address] Performed By: #### 1 9123-9, 27708-08, 99205-4 ####[facility] LABCLIA [id number] [address] [address] [place] Bilirubin [Mass/Vol] 0.3 mg/dL Normal 0.2-1.3 [facility] Comment on above: Order Comment: Speci men Type: BLOOD SPECIMENOrdering Facility: [facility] Address: [address] [place], [place] [address] Performed By: #### 1 9123-9, 27708-08, 80956-5 ####[facility] LABCLIA [id number] [facility] [address] [address] [place] Calcium [Mass/Vol] 8.2 mg/dL Low 8.5-10.2 [facility] Comment on above: Order Comment: Speci men Type: BLOOD SPECIMENOrdering Facility: [facility] Address: [address] [place] [address] Performed By: #### 1 9123-9, 27708-08, 63965-5 ####[facility] LABCLIA [id number] [facility] [address] [address] [place] Chloride [Moles/Vol] 99 mmol/L Normal 98-107 [facility] Comment on above: Order Comment: Speci men Type: BLOOD SPECIMENOrdering Facility: [facility] Address: [address] [place], [place] [address] Performed By: #### 1 9123-9, 27708-08, ####[facility] LABCLIA [id number] [address] [address] [place] CO2 [Moles/Vol] 27 mmol/L Normal 22-30 [facility] Comment on above: Order Comment: Speci men Type: BLOOD SPECIMENOrdering Facility: [facility] Address: [address] [place], [place] [address] Performed By: #### 1 9123-9, 27708-08, ####[facility] LABCLIA [id number] [address] [address] [place] Creatinine [Mass/Vol] 1.26 mg/dL High 0.73-1.22 [facility] Comment on above: Order Comment: Speci men Type: BLOOD SPECIMENOrdering Facility: [facility] Address: [address] [place], [place] [address] Performed By: #### 1 9123-9, 27708-08, 91397-0 ####[facility] LABCLIA [id number] [address] [address] [place] eGFRcr SerPlBld CKD-EPI 2020 64 mL/min/1.73m??? Normal >=60 [facility] Comment on above: Order Comment: Speci men Type: BLOOD SPECIMENOrdering Facility: [facility] Address: [address] [place] [id number] Result Comment: Gurwinder mated Glomerular Filtration Rate [...] GFR. Performed By: #### 1 9123-9, 2777-, 45980-3 ####[facility] LABIA [id number] [place] [address] [place] Glucose [Mass/Vol] 95 mg/dL Normal 74-99 [facility] Comment on above: Order Comment: Gini nowak Type: BLOOD SPECIMENOrdering Facility: [facility] Address: [address] [place] [address] Result Comment: The [place] [employer] (ADA) provides guidance for cutoff [...] Standards of Medical Care in Diabetes 2016, [place] [employer]. Diabetes Care. 2016.39(Suppl 1). Performed By: #### 1 9123-9, 2777-, 86693-2 ####[facility] LABIA [id number] [place] [id number] [place] Potassium [Moles/Vol] 4.9 mmol/L Normal 3.7-5.1 [facility] Comment on above: Order Comment: Gini nowak Type: BLOOD SPECIMENOrdering Facility: [facility] Address: [address] [place] [id number] Performed By: #### 1 9123-9, 2777-1, 11967-0 ####[facility] LABIA [id number] [place] [id number] [place] Protein [Mass/Vol] 5.0 g/dL Low 6.3-8.0 [facility] Comment on above: Order Comment: Speci men Type: BLOOD SPECIMENOrdering Facility: [facility] Address: [address] [place] [address] Performed By: #### 1 9123-9, 2777-1, 14203-8 ####[facility] [id number] [place] [address] [place] Sodium [Moles/Vol] 135 mmol/L Low 136-144 [facility] Comment on above: Order Comment: Speci men Type: BLOOD SPECIMENOrdering Facility: [facility] Address: [address] [place] [address] Performed By: #### 1 9123-9, 2777-1, 98787-7 ####[facility] [id number] [place] [id number] [place] Urea nitrogen [Mass/Vol] 20 mg/dL Normal 9-24 [facility] Comment on above: Order Comment: Speci men Type: BLOOD SPECIMENOrdering Facility: [facility] Address: [address] [place] [address] Performed By: #### 1 9123-9, 2777-1, 82164-9 ####[facility] [id number] [place] [id number] [place] ECG COMPLETEon 10-23-2024 ECG COMPLETE Normal [facility] Fact Xa PPP-aCncon Coagulation factor X activated act Coag Qn (PPP) <0.10 Normal <0.10 [facility] Comment on above: Order Comment: Speci men Type: BLOOD SPECIMENOrdering Facility: [facility] Address: [address] [place] [address] Result Comment: The recommended therapeutic range for treatment of venous and arterial thrombosis with intravenous unfractionated heparin is an anti Xa activity level of 0.3 to 0.7 IU/mL. In patients with concomitant therapy with thrombolytic agents and/or platelet glycoprotein IIb/IIIa antagonists, the recommended therapeutic range is an anti Xa activity level of 0.2 to 0.5 IU/mL. Performed By: #### 3 217-7 ####[facility] LABIA [id number] [place] [address] [place] Coagulation factor X activated act Coag Qn (PPP) 0.44 IU/mL High <0.10 [facility] Comment on above: Order Comment: Gini nowak Type: BLOOD SPECIMENOrdering Facility: [facility] Address: [address] [place] [address] Result Comment: The recommended therapeutic range for treatment of venous and arterial thrombosis with intravenous unfractionated heparin is an anti Xa activity level of 0.3 to 0.7 IU/mL. In patients with concomitant therapy with thrombolytic agents and/or platelet glycoprotein IIb/IIIa antagonists, the recommended therapeutic range is an anti Xa activity level of 0.2 to 0.5 IU/mL. Performed By: #### 3 4528-0, 3217-7 ####[facility] [id number] [place] [address] [place] Gas + CO Pnl BldVon 10-24-19 25 Body temperature 98.42 [degF] Normal [facility] Comment on above: Order Comment: Gini nowak Type: VENOUS BLOOD SPECIMENOrdering Facility: [facility] Address: [address] [place] [address] Performed By: #### 2 4344-4 ####[facility] LABIA [id number] [place] [address] [place] Order Comment: Gini nowak Type: ARTERIAL BLOOD SPECIMENOrdering Facility: [facility] Address: [address], [place] [address] Performed By: #### A LLBG ####[facility] LABCLIA [id number] [address] [place] [address] [place] HCO3 (Bld) [Moles/Vol] 29 mmol/L High 22-26 Cl [facility] Comment on above: Order Comment: Speci men Type: VENOUS BLOOD SPECIMENOrdering Facility: [facility] Address: [address] [place] [address] Performed By: #### 2 4344-4 ####[facility] LABCLIA [id number] [address] [place] [address] [place] Order Comment: Speci men Type: ARTERIAL BLOOD SPECIMENOrdering Facility: [facility] Address: [address] [place] [address] Performed By: #### A LLBG ####[facility] LABCLIA [id number] [place] [address] [place] LITERS 3 Liters/min Normal [facility] Comment on above: Order Comment: Speci men Type: VENOUS BLOOD SPECIMENOrdering Facility: [facility] Address: [address] [place] [address] Performed By: #### 2 4344-4 ####[facility] LABCLIA [id number] [address] [address] [place] Order Comment: Speci men Type: ARTERIAL BLOOD SPECIMENOrdering Facility: [facility] Address: [address] [place] [address] Performed By: #### A LLBG ####[facility] LABCLIA [id number] [place] [id number] [place] O2 THERAPY NC = Nasal Cannula Normal [facility] Comment on above: Order Comment: Speci men Type: VENOUS BLOOD SPECIMENOrdering Facility: [facility] Address: [address] [place], [place] [address] Performed By: #### 2 4344-4 ####[facility] LABCLIA [id number] [facility] [address] [place] [address] [place] Order Comment: Speci men Type: ARTERIAL BLOOD SPECIMENOrdering Facility: [facility] Address: [address] [place] [address] Performed By: #### A LLBG ####[facility] LABCLIA [id number] [facility] [address] [place] [address] [place] Body temperature 98.6 [degF] Normal [facility] Comment on above: Order Comment: Speci men Type: VENOUS BLOOD SPECIMENOrdering Facility: [facility] Address: [address] [place] [address] Performed By: #### 2 4344-4 ####[facility] LABCLIA [id number] [address], [address] [place] Order Comment: Speci men Type: ARTERIAL BLOOD SPECIMENOrdering Facility: [facility] Address: [address] [place] [address] Performed By: #### A LLBG ####[facility] LABCLIA [id number] [place] [address] [place] Glucose [Mass/Vol] 79 mg/dL Normal 60-105 [facility] Comment on above: Order Comment: Speci men Type: VENOUS BLOOD SPECIMENOrdering Facility: [facility] Address: [address] [place] [address] Performed By: #### 2 4344-4 ####[facility] LABCLIA [id number] [facility] [address] [place] [address] [place] Order Comment: Speci men Type: ARTERIAL BLOOD SPECIMENOrdering Facility: [facility] Address: [address] [place] [address] Performed By: #### A LLBG ####[facility] LABCLIA [id number] [facility] [address] [address] [place] HCO3 (Bld) [Moles/Vol] 30 mmol/L High 22-26 [facility] [place] Comment on above: Order Comment: Speci men Type: VENOUS BLOOD SPECIMENOrdering Facility: [facility] Address: [address] [place] [id number] Performed By: #### 2 4344-4 ####[facility] LABCLIA [id number] [facility] [address] [place] [address] [place] Order Comment: Speci men Type: ARTERIAL BLOOD SPECIMENOrdering Facility: [facility] Address: [address] [place], [place] [address] Performed By: #### A LLBG ####[facility] LABCLIA [id number] [address] [place] [address] [place] LITERS 3 Liters/min Normal [facility] Comment on above: Order Comment: Speci men Type: VENOUS BLOOD SPECIMENOrdering Facility: [facility] Address: [address] [place], [place] [address] Performed By: #### 2 4344-4 ####[facility] LABCLIA [id number] [address] [place] [address] [place] Order Comment: Speci men Type: ARTERIAL BLOOD SPECIMENOrdering Facility: [facility] Address: [address] [place], [place] [address] Performed By: #### A LLBG ####[facility] LABCLIA [id number] [facility] [address] [place] [address] [place] O2 THERAPY NC = Nasal Cannula Normal [facility] Comment on above: Order Comment: Speci men Type: VENOUS BLOOD SPECIMENOrdering Facility: [facility] Address: [address] [place] [address] Performed By: #### 2 4344-4 ####[facility] LABCLIA [id number] [facility] [address] [place] [address] [place] Order Comment: Speci men Type: ARTERIAL BLOOD SPECIMENOrdering Facility: [facility] Address: [address] [place], [place] [address] Performed By: #### A LLBG ####[facility] LABIA [id number] [place] [address] [place] Gas and Carbon monoxide pane l (BldV)on 10-23-2024 Base excess Calc (BldV) [Moles/Vol] 4 mmol/L High 0-2 [facility] Comment on above: Order Comment: Speci men Type: VENOUS BLOOD SPECIMENOrdering Facility: [facility] Address: [address] [place] [address] Performed By: #### 2 4344-4 ####[facility] LABIA [id number] [place] [address] [place] Body temperature 99.14 [degF] Normal [facility] Comment on above: Order Comment: Speci men Type: VENOUS BLOOD SPECIMENOrdering Facility: [facility] Address: [address] [place] [address] Performed By: #### 2 4344-4 ####[facility] LABIA [id number] [place] [address] [place] Calcium.ionized (Bld) [Mass/Vol] 1.14 mmol/L Normal 1.08-1.30 [facility] Comment on above: Order Comment: Speci men Type: VENOUS BLOOD SPECIMENOrdering Facility: [facility] Address: [address] [place] [address] Performed By: #### 2 4344-4 ####[facility] LABIA [id number] [place] [address] [place] Calcium.ionized adjusted to pH 7.4 (BldA) [Moles/Vol] 1.13 mmol/L Normal 1.08-1.30 [facility] Comment on above: Order Comment: Speci men Type: VENOUS BLOOD SPECIMENOrdering Facility: [facility] Address: [address] [place] [address] Performed By: #### 2 4344-4 ####[facility] LABIA [id number] [place] [id number] [place] Carboxyhemoglobin (BldV) [Mass fraction] 1.5 % Normal 0.0-2.0 [facility] Comment on above: Order Comment: Speci men Type: VENOUS BLOOD SPECIMENOrdering Facility: [facility] Address: [address] [place] [address] Result Comment: Carb oxyhemoglobin Reference Range for Smokers: 2.0-8.0% Performed By: #### 2 4344-4 ####[facility] LABCLIA [id number] [place] [address] [place] CO2 (BldV) [Partial pressure] 51 mm[Hg] Normal 42-55 [facility] Comment on above: Order Comment: Speci men Type: VENOUS BLOOD SPECIMENOrdering Facility: [facility] Address: [address] [place] [address] Performed By: #### 2 4344-4 ####[facility] LABIA [id number] [place] [address] [place] CO2 adjusted to patient's actual temperature (BldV) [Partial pressure] 52 mmHg Normal 42-55 [facility] Comment on above: Order Comment: Speci men Type: VENOUS BLOOD SPECIMENOrdering Facility: [facility] Address: [address] [place] [address] Performed By: #### 2 4344-4 ####[facility] LABCLIA [id number] [place] [id number] [place] Glucose [Mass/Vol] 206 mg/dL High 60-105 [facility] Comment on above: Order Comment: Speci men Type: VENOUS BLOOD SPECIMENOrdering Facility: [facility] Address: [address] [place] [address] Performed By: #### 2 4344-4 ####[facility] LABIA [id number] [place] [id number] [place] HCO3 (Bld) [Moles/Vol] 29 mmol/L High 24-28 [facility] Comment on above: Order Comment: Speci men Type: VENOUS BLOOD SPECIMENOrdering Facility: [facility] Address: [address] [place] [address] Performed By: #### 2 4344-4 ####[facility] LABCLIA [id number] [place] [address] [place] Hematocrit (Bld) [Volume fraction] 22.0 % Low 39.0-51.0 [facility] Comment on above: Order Comment: Speci men Type: VENOUS BLOOD SPECIMENOrdering Facility: [facility] Address: [address] [place] [address] Performed By: #### 2 4344-4 ####[facility] LABCLIA [id number] [place] [address] [place] Hemoglobin (Bld) [Mass/Vol] 7.0 g/dL Low 13.0-17.0 [facility] Comment on above: Order Comment: Speci men Type: VENOUS BLOOD SPECIMENOrdering Facility: [facility] Address: [address] [place] [address] Performed By: #### 2 4344-4 ####[facility] LABIA [id number] [place] [address] [place] Lactate [Moles/Vol] 0.5 mmol/L Normal 0.5-2.2 [facility] Comment on above: Order Comment: Speci men Type: VENOUS BLOOD SPECIMENOrdering Facility: [facility] Address: [address] [place] [address] Performed By: #### 2 4344-4 ####[facility] LABIA [id number] [place] [address] [place] LITERS 5 Liters/min Normal [facility] Comment on above: Order Comment: Speci men Type: VENOUS BLOOD SPECIMENOrdering Facility: [facility] Address: [address] [place] [address] Performed By: #### 2 4344-4 ####[facility] LABCLIA [id number] [address] [address] [place] Methemoglobin (Bld) [Mass fraction] 1.3 % Normal 0.0-1.5 [facility] Comment on above: Order Comment: Speci men Type: VENOUS BLOOD SPECIMENOrdering Facility: [facility] Address: [address] [place], [place] [address] Performed By: #### 2 4344-4 ####[facility] LABCLIA [id number] [place] [id number] [place] O2 THERAPY NC = Nasal Cannula Normal [facility] Comment on above: Order Comment: Speci men Type: VENOUS BLOOD SPECIMENOrdering Facility: [facility] Address: [address] [place] [address] Performed By: #### 2 4344-4 ####[facility] LABCLIA [id number] [address] [address] [place] Oxygen (BldV) [Partial pressure] 41 mm[Hg] Normal 35-45 [facility] Comment on above: Order Comment: Speci men Type: VENOUS BLOOD SPECIMENOrdering Facility: [facility] Address: [address] [place], [place] [address] Performed By: #### 2 4344-4 ####[facility] LABCLIA [id number] [address] [address] [place] Oxygen adjusted to patient's actual temperature (BldV) [Partial pressure] 42 mmHg Normal 35-45 [facility] Comment on above: Order Comment: Speci men Type: VENOUS BLOOD SPECIMENOrdering Facility: [facility] Address: [address] [place], [place] [address] Performed By: #### 2 4344-4 ####[facility] LABCLIA [id number] [address] [address] [place] Oxygen saturation in Venous blood 66 % Normal 60-85 [facility] Comment on above: Order Comment: Speci men Type: VENOUS BLOOD SPECIMENOrdering Facility: [facility] Address: [facility] [place] [address] Performed By: #### 2 4344-4 ####[facility] LABCLIA [id number] [address] [address] [place] Oxyhemoglobin (BldV) [Mass fraction] 64 % Normal 60-85 [facility] Comment on above: Order Comment: Speci men Type: VENOUS BLOOD SPECIMENOrdering Facility: [facility] Address: [address] [place] [address] Performed By: #### 2 4344-4 ####[facility] LABCLIA [id number] [address] [address] [place] pH (BldV) 7.38 [pH] Normal 7.32-7.42 [facility] Comment on above: Order Comment: Speci men Type: VENOUS BLOOD SPECIMENOrdering Facility: [facility] Address: [address] [place] [address] Performed By: #### 2 4344-4 ####[facility] LABCLIA [id number] [address] [address] [place] pH adjusted to patient's actual temperature (BldV) 7.37 Normal 7.32-7.42 [facility] Comment on above: Order Comment: Speci men Type: VENOUS BLOOD SPECIMENOrdering Facility: [facility] Address: [address] [place], [place] [address] Performed By: #### 2 4344-4 ####[facility] LABIA [id number] [address] [address] [address] [place] Potassium [Moles/Vol] 4.6 mmol/L Normal 3.5-5.0 [facility] Comment on above: Order Comment: Speci men Type: VENOUS BLOOD SPECIMENOrdering Facility: [facility] Address: [address] [place] [address] Performed By: #### 2 4344-4 ####[facility] LABCLIA [id number] [place] [address] [place] Sodium [Moles/Vol] 135 mmol/L Low 136-144 [facility] Comment on above: Order Comment: Speci men Type: VENOUS BLOOD SPECIMENOrdering Facility: [facility] Address: [address] [place] [address] Performed By: #### 2 4344-4 ####[facility] LABCLIA [id number] [place] [address] [place] Base excess Calc (BldV) [Moles/Vol] 5 mmol/L High 0-2 [facility] Comment on above: Order Comment: Speci men Type: VENOUS BLOOD SPECIMENOrdering Facility: [facility] Address: [address] [place] [address] Performed By: #### 2 4344-4 ####[facility] LABCLIA [id number] [place] [address] [place] Body temperature 97.88 [degF] Normal [facility] Comment on above: Order Comment: Speci men Type: VENOUS BLOOD SPECIMENOrdering Facility: [facility] Address: [address] [place] [address] Performed By: #### 2 4344-4 ####[facility] LABCLIA [id number] [place] [address] [place] Calcium.ionized (Bld) [Mass/Vol] 1.18 mmol/L Normal 1.08-1.30 [facility] Comment on above: Order Comment: Speci men Type: VENOUS BLOOD SPECIMENOrdering Facility: [facility] Address: [address] [place] [address] Performed By: #### 2 4344-4 ####[facility] LABCLIA [id number] [place] [id number] [place] Calcium.ionized adjusted to pH 7.4 (BldA) [Moles/Vol] 1.15 mmol/L Normal 1.08-1.30 [facility] Comment on above: Order Comment: Speci men Type: VENOUS BLOOD SPECIMENOrdering Facility: [facility] Address: [address] [place] [address] Performed By: #### 2 4344-4 ####[facility] LABCLIA [id number] [address] [place] Carboxyhemoglobin (BldV) [Mass fraction] 1.2 % Normal 0.0-2.0 [facility] Comment on above: Order Comment: Speci men Type: VENOUS BLOOD SPECIMENOrdering Facility: [facility] Address: [address] [place] [address] Result Comment: Carb oxyhemoglobin Reference Range for Smokers: 2.0-8.0% Performed By: #### 2 4344-4 ####[facility] LABIA [id number] [address] [place] CO2 (BldV) [Partial pressure] 56 mm[Hg] High 42-55 [facility] Comment on above: Order Comment: Speci men Type: VENOUS BLOOD SPECIMENOrdering Facility: [facility] Address: [address] [place] [address] Performed By: #### 2 4344-4 ####[facility] LABCLIA [id number] [address] [place] CO2 adjusted to patient's actual temperature (BldV) [Partial pressure] 55 mmHg Normal 42-55 [facility] Comment on above: Order Comment: Speci men Type: VENOUS BLOOD SPECIMENOrdering Facility: [facility] Address: [address] [place] [address] Performed By: #### 2 4344-4 ####[facility] LABCLIA [id number] [place] [id number] [place] Glucose [Mass/Vol] 102 mg/dL Normal 60-105 [facility] Comment on above: Order Comment: Speci men Type: VENOUS BLOOD SPECIMENOrdering Facility: [facility] Address: [address] [place] [address] Performed By: #### 2 4344-4 ####[facility] LABCLIA [id number] [address] [address] [place] HCO3 (Bld) [Moles/Vol] 31 mmol/L High 24-28 [facility] Comment on above: Order Comment: Speci men Type: VENOUS BLOOD SPECIMENOrdering Facility: [facility] Address: [address] [place] [address] Performed By: #### 2 4344-4 ####[facility] LABIA [id number] [place] [address] [place] Hematocrit (Bld) [Volume fraction] 23.6 % Low 39.0-51.0 [facility] Comment on above: Order Comment: Speci men Type: VENOUS BLOOD SPECIMENOrdering Facility: [facility] Address: [address] [place] [address] Performed By: #### 2 4344-4 ####[facility] LABIA [id number] [place] [address] [place] Hemoglobin (Bld) [Mass/Vol] 7.6 g/dL Low 13.0-17.0 [facility] Comment on above: Order Comment: Speci men Type: VENOUS BLOOD SPECIMENOrdering Facility: [facility] Address: [address] [place], [place] [address] Performed By: #### 2 4344-4 ####[facility] LABIA [id number] [place] [id number] [place] Lactate [Moles/Vol] 0.7 mmol/L Normal 0.5-2.2 [facility] Comment on above: Order Comment: Speci men Type: VENOUS BLOOD SPECIMENOrdering Facility: [facility] Address: [address] [place] [address] [place] [address] Performed By: #### 2 4344-4 ####[facility] LABCLIA [id number] [address] [address] [place] LITERS 6 Liters/min Normal [facility] Comment on above: Order Comment: Speci men Type: VENOUS BLOOD SPECIMENOrdering Facility: [facility] Address: [address] [place] [id number] Performed By: #### 2 4344-4 ####[facility] LABCLIA [id number] [address] [place] [address] [place] Methemoglobin (Bld) [Mass fraction] 1.3 % Normal 0.0-1.5 [facility] Comment on above: Order Comment: Speci men Type: VENOUS BLOOD SPECIMENOrdering Facility: [facility] Address: [address] [place], [place] [address] Performed By: #### 2 4344-4 ####[facility] LABCLIA [id number] [address] [address] [place] O2 THERAPY NC = Nasal Cannula Normal [facility] Comment on above: Order Comment: Speci men Type: VENOUS BLOOD SPECIMENOrdering Facility: [facility] Address: [address] [place] [address] Performed By: #### 2 4344-4 ####[facility] LABCLIA [id number] [address] [address] [place] Oxygen (BldV) [Partial pressure] 35 mm[Hg] Normal 35-45 [facility] Comment on above: Order Comment: Speci men Type: VENOUS BLOOD SPECIMENOrdering Facility: [facility] Address: [address] [place] [address] Performed By: #### 2 4344-4 ####[facility] LABCLIA [id number] [address] [address] [place] Oxygen adjusted to patient's actual temperature (BldV) [Partial pressure] 34 mmHg Low 35-45 [facility] Comment on above: Order Comment: Speci men Type: VENOUS BLOOD SPECIMENOrdering Facility: [facility] Address: [address] [place] [address] Performed By: #### 2 4344-4 ####[facility] LABCLIA [id number] [address] [place] [address] [place] Oxygen saturation in Venous blood 58 % Low 60-85 [facility] Comment on above: Order Comment: Speci men Type: VENOUS BLOOD SPECIMENOrdering Facility: [facility] Address: [address] [place] [address] Performed By: #### 2 4344-4 ####[facility] LABCLIA [id number] [address] [address] [place] Oxyhemoglobin (BldV) [Mass fraction] 57 % Low 60-85 [facility] Comment on above: Order Comment: Speci men Type: VENOUS BLOOD SPECIMENOrdering Facility: [facility] Address: [address] [place] [address] Performed By: #### 2 4344-4 ####[facility] LABCLIA [id number] [place] [address] [place] pH (BldV) 7.36 [pH] Normal 7.32-7.42 [facility] Comment on above: Order Comment: Speci men Type: VENOUS BLOOD SPECIMENOrdering Facility: [facility] Address: [address] [place] [address] Performed By: #### 2 4344-4 ####[facility] LABCLIA [id number] [place] [id number] [place] pH adjusted to patient's actual temperature (BldV) 7.37 Normal 7.32-7.42 [facility] Comment on above: Order Comment: Speci men Type: VENOUS BLOOD SPECIMENOrdering Facility: [facility] Address: [address] [place] [address] Performed By: #### 2 4344-4 ####[facility] LABCLIA [id number] [place] [id number] [place] Potassium [Moles/Vol] 4.4 mmol/L Normal 3.5-5.0 [facility] Comment on above: Order Comment: Speci men Type: VENOUS BLOOD SPECIMENOrdering Facility: [facility] Address: [address] [place] [address] Performed By: #### 2 4344-4 ####[facility] LABIA [id number] [place] [id number] [place] Sodium [Moles/Vol] 135 mmol/L Low 136-144 [facility] Comment on above: Order Comment: Speci men Type: VENOUS BLOOD SPECIMENOrdering Facility: [facility] Address: [address] [place] [address] Performed By: #### 2 4344-4 ####[facility] LABIA [id number] [place] [address] [place] Base excess Calc (BldV) [Moles/Vol] 0 mmol/L Normal 0-2 [facility] Comment on above: Order Comment: Speci men Type: VENOUS BLOOD SPECIMENOrdering Facility: [facility] Address: [address] [place] [address] Performed By: #### 2 4344-4 ####[facility] LABIA [id number] [place] [id number] [place] Calcium.ionized (Bld) [Mass/Vol] 1.12 mmol/L Normal 1.08-1.30 [facility] Comment on above: Order Comment: Speci men Type: VENOUS BLOOD SPECIMENOrdering Facility: [facility] Address: [address] [place] [address] Performed By: #### 2 4344-4 ####[facility] LABIA [id number] [address] [address] [place] Calcium.ionized adjusted to pH 7.4 (BldA) [Moles/Vol] 1.08 mmol/L Normal 1.08-1.30 [facility] Comment on above: Order Comment: Speci men Type: VENOUS BLOOD SPECIMENOrdering Facility: [facility] Address: [address] [place] [address] Performed By: #### 2 4344-4 ####[facility] LABIA [id number] [place] [address] [place] Carboxyhemoglobin (BldV) [Mass fraction] 1.5 % Normal 0.0-2.0 [facility] Comment on above: Order Comment: Speci men Type: VENOUS BLOOD SPECIMENOrdering Facility: [facility] Address: [address] [place] [address] Result Comment: Carb oxyhemoglobin Reference Range for Smokers: 2.0-8.0% Performed By: #### 2 4344-4 ####[facility] LABIA [id number] [address] [place] CO2 (BldV) [Partial pressure] 49 mm[Hg] Normal 42-55 [facility] Comment on above: Order Comment: Speci men Type: VENOUS BLOOD SPECIMENOrdering Facility: [facility] Address: [address] [place] [address] Performed By: #### 2 4344-4 ####[facility] LABIA [id number] [place] [address] [place] FIO2 8 % Normal [facility] Comment on above: Order Comment: Speci men Type: VENOUS BLOOD SPECIMENOrdering Facility: [facility] Address: [address] [place] [address] Performed By: #### 2 4344-4 ####[facility] LABIA [id number] [place] [id number] [place] Glucose [Mass/Vol] 142 mg/dL High 60-105 [facility] Comment on above: Order Comment: Speci men Type: VENOUS BLOOD SPECIMENOrdering Facility: [facility] Address: [address] [place], [place] [address] Performed By: #### 2 4344-4 ####[facility] LABCLIA [id number] [address] [address] [place] HCO3 (Bld) [Moles/Vol] 25 mmol/L Normal 24-28 [facility] Comment on above: Order Comment: Speci men Type: VENOUS BLOOD SPECIMENOrdering Facility: [facility] Address: [address] [place] [address] Performed By: #### 2 4344-4 ####[facility] LABIA [id number] [place] [address] [place] Hematocrit (Bld) [Volume fraction] 22.2 % Low 39.0-51.0 [facility] Comment on above: Order Comment: Speci men Type: VENOUS BLOOD SPECIMENOrdering Facility: [facility] Address: [address] [place] [address] Performed By: #### 2 4344-4 ####[facility] LABIA [id number] [place] [address] [place] Hemoglobin (Bld) [Mass/Vol] 7.1 g/dL Low 13.0-17.0 [facility] Comment on above: Order Comment: Speci men Type: VENOUS BLOOD SPECIMENOrdering Facility: [facility] Address: [address] [place], [place] [address] Performed By: #### 2 4344-4 ####[facility] LABIA [id number] [place] [id number] [place] Lactate [Moles/Vol] 1.1 mmol/L Normal 0.5-2.2 [facility] Comment on above: Order Comment: Speci men Type: VENOUS BLOOD SPECIMENOrdering Facility: [facility] Address: [address] [place], [place] [address] Performed By: #### 2 4344-4 ####[facility] LABCLIA [id number] [address] [place] [address] [place] Methemoglobin (Bld) [Mass fraction] 0.7 % Normal 0.0-1.5 [facility] Comment on above: Order Comment: Speci men Type: VENOUS BLOOD SPECIMENOrdering Facility: [facility] Address: [address] [place], [place] [address] Performed By: #### 2 4344-4 ####[facility] LABCLIA [id number] [facility] [address] [place] [address] [place] Oxygen (BldV) [Partial pressure] 39 mm[Hg] Normal 35-45 [facility] Comment on above: Order Comment: Speci men Type: VENOUS BLOOD SPECIMENOrdering Facility: [facility] Address: [address] [place] [address] Performed By: #### 2 4344-4 ####[facility] LABCLIA [id number] [address] [place] [address] [place] Oxygen saturation in Venous blood 72 % Normal 60-85 [facility] Comment on above: Order Comment: Speci men Type: VENOUS BLOOD SPECIMENOrdering Facility: [facility] Address: [address] [place], [place] [address] Performed By: #### 2 4344-4 ####[facility] LABCLIA [id number] [address] [place] [address] [place] Oxyhemoglobin (BldV) [Mass fraction] 70 % Normal 60-85 [facility] Comment on above: Order Comment: Speci men Type: VENOUS BLOOD SPECIMENOrdering Facility: [facility] Address: [address] [place] [address] Performed By: #### 2 4344-4 ####[facility] LABCLIA [id number] [address] [place] [address] [place] pH (BldV) 7.34 [pH] Normal 7.32-7.42 [facility] Comment on above: Order Comment: Speci men Type: VENOUS BLOOD SPECIMENOrdering Facility: [facility] Address: [address] [place] [address] Performed By: #### 2 4344-4 ####[facility] LABCLIA [id number] [place] [address] [place] Potassium [Moles/Vol] 4.0 mmol/L Normal 3.5-5.0 [facility] Comment on above: Order Comment: Speci men Type: VENOUS BLOOD SPECIMENOrdering Facility: [facility] Address: [address] [place] [address] Performed By: #### 2 4344-4 ####[facility] LABCLIA [id number] [place] [address] [place] Sodium [Moles/Vol] 136 mmol/L Normal 136-144 [facility] Comment on above: Order Comment: Speci men Type: VENOUS BLOOD SPECIMENOrdering Facility: [facility] Address: [address] [place] [address] Performed By: #### 2 4344-4 ####[facility] LABIA [id number] [place] [address] [place] Base excess Calc (BldV) [Moles/Vol] 4 mmol/L High 0-2 [facility] Comment on above: Order Comment: Speci men Type: VENOUS BLOOD SPECIMENOrdering Facility: [facility] Address: [address] [place] [address] Performed By: #### 2 4344-4 ####[facility] LABCLIA [id number] [place] [address] [place] Calcium.ionized (Bld) [Mass/Vol] 1.14 mmol/L Normal 1.08-1.30 [facility] Comment on above: Order Comment: Speci men Type: VENOUS BLOOD SPECIMENOrdering Facility: [facility] Address: [address] [place] [address] Performed By: #### 2 4344-4 ####[facility] LABIA [id number] [place] [address] [place] Calcium.ionized adjusted to pH 7.4 (BldA) [Moles/Vol] 1.15 mmol/L Normal 1.08-1.30 [facility] Comment on above: Order Comment: Speci men Type: VENOUS BLOOD SPECIMENOrdering Facility: [facility] Address: [address] [place] [address] Performed By: #### 2 4344-4 ####[facility] [id number] [place] [address] [place] Carboxyhemoglobin (BldV) [Mass fraction] 1.4 % Normal 0.0-2.0 [facility] Comment on above: Order Comment: Speci men Type: VENOUS BLOOD SPECIMENOrdering Facility: [facility] Address: [address] [place] [address] Result Comment: Carb oxyhemoglobin Reference Range for Smokers: 2.0-8.0% Performed By: #### 2 4344-4 ####[facility] [id number] [place] [address] [place] CO2 (BldV) [Partial pressure] 46 mm[Hg] Normal 42-55 [facility] Comment on above: Order Comment: Speci men Type: VENOUS BLOOD SPECIMENOrdering Facility: [facility] Address: [address] [place] [address] Performed By: #### 2 4344-4 ####[facility] LABIA [id number] [place] [address] [place] CO2 adjusted to patient's actual temperature (BldV) [Partial pressure] 46 mmHg Normal 42-55 [facility] Comment on above: Order Comment: Speci men Type: VENOUS BLOOD SPECIMENOrdering Facility: [facility] Address: [address] [place] [address] Performed By: #### 2 4344-4 ####[facility] LABCLIA [id number] [place] [id number] [place] Glucose [Mass/Vol] 108 mg/dL High 60-105 [facility] Comment on above: Order Comment: Speci men Type: VENOUS BLOOD SPECIMENOrdering Facility: [facility] Address: [address] [place] [address] Performed By: #### 2 4344-4 ####[facility] LABIA [id number] [place] [address] [place] Hematocrit (Bld) [Volume fraction] 25.1 % Low 39.0-51.0 [facility] Comment on above: Order Comment: Speci men Type: VENOUS BLOOD SPECIMENOrdering Facility: [facility] Address: [address] [place] [address] Performed By: #### 2 4344-4 ####[facility] LABIA [id number] [place] [address] [place] Hemoglobin (Bld) [Mass/Vol] 8.0 g/dL Low 13.0-17.0 [facility] Comment on above: Order Comment: Speci men Type: VENOUS BLOOD SPECIMENOrdering Facility: [facility] Address: [address] [place] [address] Performed By: #### 2 4344-4 ####[facility] LABIA [id number] [place] [address] [place] Lactate [Moles/Vol] 0.5 mmol/L Normal 0.5-2.2 [facility] Comment on above: Order Comment: Speci men Type: VENOUS BLOOD SPECIMENOrdering Facility: [facility] Address: [address] [place] [address] Performed By: #### 2 4344-4 ####[facility] LABCLIA [id number] [place] [address] [place] Methemoglobin (Bld) [Mass fraction] 1.3 % Normal 0.0-1.5 [facility] Comment on above: Order Comment: Speci men Type: VENOUS BLOOD SPECIMENOrdering Facility: [facility] Address: [address] [place] [address] Performed By: #### 2 4344-4 ####[facility] LABCLIA [id number] [facility] [address] [place] [address] [place] Oxygen (BldV) [Partial pressure] 36 mm[Hg] Normal 35-45 [facility] Comment on above: Order Comment: Speci men Type: VENOUS BLOOD SPECIMENOrdering Facility: [facility] Address: [address] [place], [place] [address] Performed By: #### 2 4344-4 ####[facility] LABCLIA [id number] [facility] [address] [place] [address] [place] Oxygen adjusted to patient's actual temperature (BldV) [Partial pressure] 36 mmHg Normal 35-45 [facility] Comment on above: Order Comment: Speci men Type: VENOUS BLOOD SPECIMENOrdering Facility: [facility] Address: [address] [place] [address] Performed By: #### 2 4344-4 ####[facility] LABCLIA [id number] [address] [place] [address] [place] Oxygen saturation in Venous blood 62 % Normal 60-85 [facility] Comment on above: Order Comment: Speci men Type: VENOUS BLOOD SPECIMENOrdering Facility: [facility] Address: [address] [place] [address] Performed By: #### 2 4344-4 ####[facility] LABCLIA [id number] [address] [place] [address] [place] Oxyhemoglobin (BldV) [Mass fraction] 61 % Normal 60-85 [facility] Comment on above: Order Comment: Speci men Type: VENOUS BLOOD SPECIMENOrdering Facility: [facility] Address: [address] [place] [address] Performed By: #### 2 4344-4 ####[facility] LABCLIA [id number] [place] [address] [place] pH (BldV) 7.41 [pH] Normal 7.32-7.42 [facility] Comment on above: Order Comment: Speci men Type: VENOUS BLOOD SPECIMENOrdering Facility: [facility] Address: [address] [place] [address] Performed By: #### 2 4344-4 ####[facility] LABIA [id number] [place] [address] [place] pH adjusted to patient's actual temperature (BldV) 7.41 Normal 7.32-7.42 [facility] Comment on above: Order Comment: Speci men Type: VENOUS BLOOD SPECIMENOrdering Facility: [facility] Address: [address] [place] [address] Performed By: #### 2 4344-4 ####[facility] LABIA [id number] [place] [address] [place] Potassium [Moles/Vol] 4.2 mmol/L Normal 3.5-5.0 [facility] Comment on above: Order Comment: Speci men Type: VENOUS BLOOD SPECIMENOrdering Facility: [facility] Address: [address] [place] [address] Performed By: #### 2 4344-4 ####[facility] LABIA [id number] [place] [id number] [place] Sodium [Moles/Vol] 135 mmol/L Low 136-144 [facility] Comment on above: Order Comment: Speci men Type: VENOUS BLOOD SPECIMENOrdering Facility: [facility] Address: [address] [place] [address] Performed By: #### 2 4344-4 ####[facility] LABIA [id number] [place] [id number] [place] Base excess Calc (BldV) [Moles/Vol] 5 mmol/L High 0-2 [facility] Comment on above: Order Comment: Speci men Type: VENOUS BLOOD SPECIMENOrdering Facility: [facility] Address: [address] [place] [address] Performed By: #### 2 4344-4 ####[facility] LABCLIA [id number] [place] [address] [place] Calcium.ionized (Bld) [Mass/Vol] 1.12 mmol/L Normal 1.08-1.30 [facility] Comment on above: Order Comment: Speci men Type: VENOUS BLOOD SPECIMENOrdering Facility: [facility] Address: [address] [place] [address] Performed By: #### 2 4344-4 ####[facility] [id number] [place] [address] [place] Calcium.ionized adjusted to pH 7.4 (BldA) [Moles/Vol] 1.12 mmol/L Normal 1.08-1.30 [facility] Comment on above: Order Comment: Speci men Type: VENOUS BLOOD SPECIMENOrdering Facility: [facility] Address: [address] [place] [address] Performed By: #### 2 4344-4 ####[facility] LABIA [id number] [place] [address] [place] Carboxyhemoglobin (BldV) [Mass fraction] 1.1 % Normal 0.0-2.0 [facility] Comment on above: Order Comment: Speci men Type: VENOUS BLOOD SPECIMENOrdering Facility: [facility] Address: [address] [place] [address] Result Comment: Carb oxyhemoglobin Reference Range for Smokers: 2.0-8.0% Performed By: #### 2 4344-4 ####[facility] LABIA [id number] [place] [address] [place] CO2 (BldV) [Partial pressure] 51 mm[Hg] Normal 42-55 [facility] Comment on above: Order Comment: Speci men Type: VENOUS BLOOD SPECIMENOrdering Facility: [facility] Address: [address] [place] [address] Performed By: #### 2 4344-4 ####[facility] LABCLIA [id number] [place] [address] [place] Hematocrit (Bld) [Volume fraction] 25.9 % Low 39.0-51.0 [facility] Comment on above: Order Comment: Speci men Type: VENOUS BLOOD SPECIMENOrdering Facility: [facility] Address: [address] [place] [address] Performed By: #### 2 4344-4 ####[facility] LABCLIA [id number] [place] [address] [place] Hemoglobin (Bld) [Mass/Vol] 8.3 g/dL Low 13.0-17.0 [facility] Comment on above: Order Comment: Speci men Type: VENOUS BLOOD SPECIMENOrdering Facility: [facility] Address: [address] [place] [address] Performed By: #### 2 4344-4 ####[facility] LABCLIA [id number] [place] [address] [place] Lactate [Moles/Vol] 0.5 mmol/L Normal 0.5-2.2 [facility] Comment on above: Order Comment: Speci men Type: VENOUS BLOOD SPECIMENOrdering Facility: [facility] Address: [address] [place] [address] Performed By: #### 2 4344-4 ####[facility] LABCLIA [id number] [place] [address] [place] Methemoglobin (Bld) [Mass fraction] 1.0 % Normal 0.0-1.5 [facility] Comment on above: Order Comment: Speci men Type: VENOUS BLOOD SPECIMENOrdering Facility: [facility] Address: [address] [id number] Performed By: #### 2 4344-4 ####[facility] LABCLIA [id number] [address] [address] [place] Oxygen (BldV) [Partial pressure] 29 mm[Hg] Low 35-45 [facility] Comment on above: Order Comment: Speci men Type: VENOUS BLOOD SPECIMENOrdering Facility: [facility] Address: [address] [place] [address] Performed By: #### 2 4344-4 ####[facility] LABCLIA [id number] [place] [id number] [place] Oxygen saturation in Venous blood 46 % Low 60-85 [facility] Comment on above: Order Comment: Speci men Type: VENOUS BLOOD SPECIMENOrdering Facility: [facility] Address: [address] [place] [address] Performed By: #### 2 4344-4 ####[facility] LABCLIA [id number] [place] [id number] [place] Oxyhemoglobin (BldV) [Mass fraction] 45 % Low 60-85 [facility] Comment on above: Order Comment: Speci men Type: VENOUS BLOOD SPECIMENOrdering Facility: [facility] Address: [address] [place] [address] Performed By: #### 2 4344-4 ####[facility] LABCLIA [id number] [address] [address] [place] pH (BldV) 7.39 [pH] Normal 7.32-7.42 [facility] Comment on above: Order Comment: Speci men Type: VENOUS BLOOD SPECIMENOrdering Facility: [facility] Address: [address] [place], [place] [address] Performed By: #### 2 4344-4 ####[facility] LABCLIA [id number] [address] [address] [place] Potassium [Moles/Vol] 4.4 mmol/L Normal 3.5-5.0 [facility] Comment on above: Order Comment: Speci men Type: VENOUS BLOOD SPECIMENOrdering Facility: [facility] Address: [address] [place] [address] Performed By: #### 2 4344-4 ####[facility] LABCLIA [id number] [place] [address] [place] Sodium [Moles/Vol] 135 mmol/L Low 136-144 [facility] Comment on above: Order Comment: Speci men Type: VENOUS BLOOD SPECIMENOrdering Facility: [facility] Address: [address] [place] [address] Performed By: #### 2 4344-4 ####[facility] LABCLIA [id number] [place] [address] [place] Base excess Calc (BldV) [Moles/Vol] 6 mmol/L High 0-2 [facility] Comment on above: Order Comment: Speci men Type: VENOUS BLOOD SPECIMENOrdering Facility: [facility] Address: [address] [place] [address] Performed By: #### 2 4344-4 ####[facility] LABCLIA [id number] [place] [address] [place] Body temperature 98.6 [degF] Normal [facility] Comment on above: Order Comment: Speci men Type: VENOUS BLOOD SPECIMENOrdering Facility: [facility] Address: [address] [place], [place] [address] Performed By: #### 2 4344-4 ####[facility] LABCLIA [id number] [place] [address] [place] Calcium.ionized (Bld) [Mass/Vol] 1.17 mmol/L Normal 1.08-1.30 [facility] Comment on above: Order Comment: Speci men Type: VENOUS BLOOD SPECIMENOrdering Facility: [facility] Address: [address] [place] [address] Performed By: #### 2 4344-4 ####[facility] LABIA [id number] [place] [address] [place] Calcium.ionized adjusted to pH 7.4 (BldA) [Moles/Vol] 1.15 mmol/L Normal 1.08-1.30 [facility] Comment on above: Order Comment: Speci men Type: VENOUS BLOOD SPECIMENOrdering Facility: [facility] Address: [address] [place] [address] Performed By: #### 2 4344-4 ####[facility] LABIA [id number] [place] [address] [place] Carboxyhemoglobin (BldV) [Mass fraction] 1.2 % Normal 0.0-2.0 [facility] Comment on above: Order Comment: Speci men Type: VENOUS BLOOD SPECIMENOrdering Facility: [facility] Address: [address] [place] [address] Result Comment: Carb oxyhemoglobin Reference Range for Smokers: 2.0-8.0% Performed By: #### 2 4344-4 ####[facility] LABIA [id number] [place] [address] [place] CO2 (BldV) [Partial pressure] 56 mm[Hg] High 42-55 [facility] Comment on above: Order Comment: Speci men Type: VENOUS BLOOD SPECIMENOrdering Facility: [facility] Address: [address] [place] [address] Performed By: #### 2 4344-4 ####[facility] LABIA [id number] [place] [address] [place] Glucose [Mass/Vol] 70 mg/dL Normal 60-105 [facility] Comment on above: Order Comment: Speci men Type: VENOUS BLOOD SPECIMENOrdering Facility: [facility] Address: [address] [place] [address] Performed By: #### 2 4344-4 ####[facility] LABCLIA [id number] [place] [address] [place] HCO3 (Bld) [Moles/Vol] 32 mmol/L High 24-28 [facility] Comment on above: Order Comment: Speci men Type: VENOUS BLOOD SPECIMENOrdering Facility: [facility] Address: [address] [place] [address] Performed By: #### 2 4344-4 ####[facility] LABCLIA [id number] [place] [address] [place] Hematocrit (Bld) [Volume fraction] 25.5 % Low 39.0-51.0 [facility] Comment on above: Order Comment: Speci men Type: VENOUS BLOOD SPECIMENOrdering Facility: [facility] Address: [address] [place] [address] Performed By: #### 2 4344-4 ####[facility] LABIA [id number] [place] [address] [place] Hemoglobin (Bld) [Mass/Vol] 8.2 g/dL Low 13.0-17.0 [facility] Comment on above: Order Comment: Speci men Type: VENOUS BLOOD SPECIMENOrdering Facility: [facility] Address: [address] [place] [address] Performed By: #### 2 4344-4 ####[facility] LABIA [id number] [place] [id number] [place] Lactate [Moles/Vol] 0.6 mmol/L Normal 0.5-2.2 [facility] Comment on above: Order Comment: Speci men Type: VENOUS BLOOD SPECIMENOrdering Facility: [facility] Address: [address] [place] [address] Performed By: #### 2 4344-4 ####[facility] LABIA [id number] [place] [id number] [place] LITERS 3 Liters/min Normal [facility] Comment on above: Order Comment: Speci men Type: VENOUS BLOOD SPECIMENOrdering Facility: [facility] Address: [address] [id number] Performed By: #### 2 4344-4 ####[facility] LABCLIA [id number] [address] [address] [place] Methemoglobin (Bld) [Mass fraction] 1.7 % High 0.0-1.5 [facility] Comment on above: Order Comment: Speci men Type: VENOUS BLOOD SPECIMENOrdering Facility: [facility] Address: [address] [place] [address] Performed By: #### 2 4344-4 ####[facility] LABCLIA [id number] [place] [id number] [place] O2 THERAPY NC = Nasal Cannula Normal [facility] Comment on above: Order Comment: Speci men Type: VENOUS BLOOD SPECIMENOrdering Facility: [facility] Address: [address] [place], [place] [address] Performed By: #### 2 4344-4 ####[facility] LABCLIA [id number] [place] [id number] [place] Oxygen (BldV) [Partial pressure] 31 mm[Hg] Low 35-45 [facility] Comment on above: Order Comment: Speci men Type: VENOUS BLOOD SPECIMENOrdering Facility: [facility] Address: [address] [id number] Performed By: #### 2 4344-4 ####[facility] LABCLIA [id number] [place] [id number] [place] Oxygen saturation in Venous blood 51 % Low 60-85 [facility] Comment on above: Order Comment: Speci men Type: VENOUS BLOOD SPECIMENOrdering Facility: [facility] Address: [address] [id number] Performed By: #### 2 4344-4 ####[facility] LABCLIA [id number] [address] [address] [place] Oxyhemoglobin (BldV) [Mass fraction] 49 % Low 60-85 [facility] Comment on above: Order Comment: Speci men Type: VENOUS BLOOD SPECIMENOrdering Facility: [facility] Address: [address] [place] [address] Performed By: #### 2 4344-4 ####[facility] LABCLIA [id number] [place] [id number] [place] pH (BldV) 7.37 [pH] Normal 7.32-7.42 [facility] Comment on above: Order Comment: Speci men Type: VENOUS BLOOD SPECIMENOrdering Facility: [facility] Address: [address] [place] [address] Performed By: #### 2 4344-4 ####[facility] LABIA [id number] [place] [id number] [place] Potassium [Moles/Vol] 4.4 mmol/L Normal 3.5-5.0 [facility] Comment on above: Order Comment: Speci men Type: VENOUS BLOOD SPECIMENOrdering Facility: [facility] Address: [address] [place] [address] Performed By: #### 2 4344-4 ####[facility] LABIA [id number] [place] [id number] [place] Sodium [Moles/Vol] 136 mmol/L Normal 136-144 [facility] Comment on above: Order Comment: Speci men Type: VENOUS BLOOD SPECIMENOrdering Facility: [facility] Address: [address] [place] [address] Performed By: #### 2 4344-4 ####[facility] LABCLIA [id number] [address] [address] [place] Base excess Calc (BldV) [Moles/Vol] 5 mmol/L High 0-2 [facility] Comment on above: Order Comment: Speci men Type: VENOUS BLOOD SPECIMENOrdering Facility: [facility] Address: [address] [place] [address] Performed By: #### 2 4344-4 ####[facility] LABIA [id number] [place] [id number] [place] Body temperature 98.6 [degF] Normal [facility] Comment on above: Order Comment: Speci men Type: VENOUS BLOOD SPECIMENOrdering Facility: [facility] Address: [address] [place] [address] Performed By: #### 2 4344-4 ####[facility] [id number] [place] [address] [place] Calcium.ionized (Bld) [Mass/Vol] 1.14 mmol/L Normal 1.08-1.30 [facility] Comment on above: Order Comment: Speci men Type: VENOUS BLOOD SPECIMENOrdering Facility: [facility] Address: [address] [place] [address] Performed By: #### 2 4344-4 ####[facility] [id number] [place] [address] [place] Calcium.ionized adjusted to pH 7.4 (BldA) [Moles/Vol] 1.12 mmol/L Normal 1.08-1.30 [facility] Comment on above: Order Comment: Speci men Type: VENOUS BLOOD SPECIMENOrdering Facility: [facility] Address: [address] [place], [place] [address] Performed By: #### 2 4344-4 ####[facility] [id number] [place] [id number] [place] Carboxyhemoglobin (BldV) [Mass fraction] 1.0 % Normal 0.0-2.0 [facility] Comment on above: Order Comment: Speci men Type: VENOUS BLOOD SPECIMENOrdering Facility: [facility] Address: [address] [place] [address] Result Comment: Carb oxyhemoglobin Reference Range for Smokers: 2.0-8.0% Performed By: #### 2 4344-4 ####[facility] LABCLIA [id number] [address] [address] [place] CO2 (BldV) [Partial pressure] 54 mm[Hg] Normal 42-55 [facility] Comment on above: Order Comment: Speci men Type: VENOUS BLOOD SPECIMENOrdering Facility: [facility] Address: [address] [place] [address] Performed By: #### 2 4344-4 ####[facility] LABCLIA [id number] [place] [address] [place] Glucose [Mass/Vol] 94 mg/dL Normal 60-105 [facility] Comment on above: Order Comment: Speci men Type: VENOUS BLOOD SPECIMENOrdering Facility: [facility] Address: [address] [place] [address] Performed By: #### 2 4344-4 ####[facility] LABCLIA [id number] [place] [address] [place] HCO3 (Bld) [Moles/Vol] 31 mmol/L High 24-28 Cl [facility] Comment on above: Order Comment: Speci men Type: VENOUS BLOOD SPECIMENOrdering Facility: [facility] Address: [address] [place] [address] Performed By: #### 2 4344-4 ####[facility] LABCLIA [id number] [place] [id number] [place] Hematocrit (Bld) [Volume fraction] 24.3 % Low 39.0-51.0 [facility] Comment on above: Order Comment: Speci men Type: VENOUS BLOOD SPECIMENOrdering Facility: [facility] Address: [address] [place] [address] Performed By: #### 2 4344-4 ####[facility] LABCLIA [id number] [address] [address] [place] Hemoglobin (Bld) [Mass/Vol] 7.8 g/dL Low 13.0-17.0 [facility] Comment on above: Order Comment: Speci men Type: VENOUS BLOOD SPECIMENOrdering Facility: [facility] Address: [address] [place] [address] Performed By: #### 2 4344-4 ####[facility] LABCLIA [id number] [address] [address] [place] Lactate [Moles/Vol] 0.7 mmol/L Normal 0.5-2.2 [facility] Comment on above: Order Comment: Speci men Type: VENOUS BLOOD SPECIMENOrdering Facility: [facility] Address: [address] [place] [address] Performed By: #### 2 4344-4 ####[facility] LABCLIA [id number] [place] [id number] [place] LITERS 3 Liters/min Normal [facility] Comment on above: Order Comment: Speci men Type: VENOUS BLOOD SPECIMENOrdering Facility: [facility] Address: [address] [place], [place] [address] Performed By: #### 2 4344-4 ####[facility] LABCLIA [id number] [place] [id number] [place] Methemoglobin (Bld) [Mass fraction] 1.0 % Normal 0.0-1.5 [facility] Comment on above: Order Comment: Speci men Type: VENOUS BLOOD SPECIMENOrdering Facility: [facility] Address: [address] [place], [place] [address] Performed By: #### 2 4344-4 ####[facility] LABCLIA [id number] [address] [address] [place] O2 THERAPY NC = Nasal Cannula Normal [facility] Comment on above: Order Comment: Speci men Type: VENOUS BLOOD SPECIMENOrdering Facility: [facility] Address: [address] [place], [place] [address] Performed By: #### 2 4344-4 ####[facility] LABCLIA [id number] [address] [address] [place] Oxygen (BldV) [Partial pressure] 33 mm[Hg] Low 35-45 [facility] Comment on above: Order Comment: Speci men Type: VENOUS BLOOD SPECIMENOrdering Facility: [facility] Address: [address] [place], [place] [address] Performed By: #### 2 4344-4 ####[facility] LABCLIA [id number] [address] [address] [place] Oxygen saturation in Venous blood 54 % Low 60-85 [facility] Comment on above: Order Comment: Speci men Type: VENOUS BLOOD SPECIMENOrdering Facility: [facility] Address: [address] [place] [address] Performed By: #### 2 4344-4 ####[facility] LABCLIA [id number] [address] [address] [place] Oxyhemoglobin (BldV) [Mass fraction] 53 % Low 60-85 [facility] Comment on above: Order Comment: Speci men Type: VENOUS BLOOD SPECIMENOrdering Facility: [facility] Address: [address] [place], [place] [address] Performed By: #### 2 4344-4 ####[facility] LABCLIA [id number] [address] [address] [place] pH (BldV) 7.38 [pH] Normal 7.32-7.42 [facility] Comment on above: Order Comment: Speci men Type: VENOUS BLOOD SPECIMENOrdering Facility: [facility] Address: [address] [place], [place] [address] Performed By: #### 2 4344-4 ####[facility] LABCLIA [id number] [place] [id number] [place] Potassium [Moles/Vol] 4.4 mmol/L Normal 3.5-5.0 [facility] Comment on above: Order Comment: Speci men Type: VENOUS BLOOD SPECIMENOrdering Facility: [facility] Address: [address] [place] [address] Performed By: #### 2 4344-4 ####[facility] LABCLIA [id number] [place] [address] [place] Sodium [Moles/Vol] 134 mmol/L Low 136-144 [facility] Comment on above: Order Comment: Speci men Type: VENOUS BLOOD SPECIMENOrdering Facility: [facility] Address: [address] [place] [address] Performed By: #### 2 4344-4 ####[facility] LABCLIA [id number] [place] [address] [place] Haptoglob SerPl-mCncon 10-23 Haptoglobin [Mass/Vol] mg/dL Low 31-238 [facility] Comment on above: Order Comment: Speci men Type: BLOOD SPECIMENOrdering Facility: [facility] Address: [address] [place] [address] Performed By: #### 2 4323-8, 05955-6, 4542-7, 2777-1 ####[facility] LABIA [id number] [place] [id number] [place] INTRAOPERATIVE ECHO Angelic 0 10-23-2024 INTRAOPERATIVE ECHO POST Normal [facility] Magnesium SerPl-mCncon 10-23 Magnesium [Mass/Vol] 1.9 mg/dL Normal 1.7-2.3 [facility] Comment on above: Order Comment: Speci men Type: BLOOD SPECIMENOrdering Facility: [facility] Address: [address] [place] [address] Performed By: #### 2 4323-8, 78718-9, 4542-7, 2777-1 ####[facility] LABCLIA [id number] [place] [id number] [place] Magnesium [Mass/Vol] 2.0 mg/dL Normal 1.7-2.3 [facility] Comment on above: Order Comment: Gini nowak Type: BLOOD SPECIMENOrdering Facility: [facility] Address: [address] [place] [address] Performed By: #### 1 9123-9, 2777-1, 81182-8 ####[facility] LABCLIA [id number] [place] [id number] [place] NUTRITIONon 10-23-2024 NUTRITION Normal [facility] OPERATIVE NOon 10-23-2024 OPERATIVE NO Normal [facility] PT panel Coag (PPP)on 2024 INR Coag (PPP) [Relative time] 1.3 {INR} Normal 0.9-1.3 [facility] Comment on above: Order Comment: Specsonja nowak Type: BLOOD SPECIMENOrdering Facility: [facility] Address: [address] [place] [address] Result Comment: Nettie min K Antagonist (VKA) Therapeutic Range: INR 2 to 3 (Target INR of 2.5)Note: For patients treated with VKA drugs, such as warfarin, the [employer] 2012 Guideline recommends [...] 70: 252-289 Performed By: #### 3 4528-0 ####[facility] LABIA [id number] [place] [address] [place] PT Coag (PPP) [Time] 13.9 s High 9.7-13.0 [facility] Comment on above: Order Comment: Speci men Type: BLOOD SPECIMENOrdering Facility: [facility] Address: [address] [place] [address] Performed By: #### 3 4528-0 ####[facility] [id number] [address] [place] INR Coag (PPP) [Relative time] 1.3 {INR} Normal 0.9-1.3 [facility] Comment on above: Order Comment: Speci men Type: BLOOD SPECIMENOrdering Facility: [facility] Address: [address] [place] [address] Result Comment: Nettie min K Antagonist (VKA) Therapeutic Range: INR 2 to 3 (Target INR of 2.5)Note: For patients treated with VKA drugs, such as warfarin, the [employer] 2012 Guideline recommends [...] al. Chest 2012, 141:7S-47SNishimura RA, et al. [facility] 2017, 70: 252-289 Performed By: #### 3 4528-0, 3217-7 ####[facility] [id number] [place] [address] [place] PT Coag (PPP) [Time] 14.0 s High 9.7-13.0 [facility] Comment on above: Order Comment: Speci men Type: BLOOD SPECIMENOrdering Facility: [facility] Address: [address] [place] [address] Performed By: #### 3 4528-0, 3217-7 ####[facility] LABCLIA [id number] [place] [id number] [place] Phosphate SerPl-mCncon 10-23 Phosphate [Mass/Vol] 3.5 mg/dL Normal 2.7-4.8 [facility] Comment on above: Order Comment: Speci men Type: BLOOD SPECIMENOrdering Facility: [facility] Address: [address] [place] [address] Performed By: #### 2 4323-8, 47888-2, 4542-7, 2777-1 ####[facility] LABCLIA [id number] [place] [address] [place] Phosphate [Mass/Vol] 3.4 mg/dL Normal 2.7-4.8 [facility] Comment on above: Order Comment: Speci men Type: BLOOD SPECIMENOrdering Facility: [facility] Address: [address] [place] [address] Performed By: #### 1 9123-9, 2777-1, 08511-4 ####[facility] LABCLIA [id number] [place] [id number] [place] TAVR PROCEDURE REPORTon 10-09 TAVR PROC[address] REPORT Normal [facility] THERAPY NTon 10-23-2024 THERAPY NT Normal [facility] THERAPY NT Normal [facility] XR CHEST 1V FRONTAL PORTon 0 10-23-2024 XR CHEST 1V FRONTAL PORT Normal [facility] ARTERIAL BLOOD GASESon 10-22 Base excess Calc (Bld) [Moles/Vol] 5 mmol/L High 0-2 [facility] Comment on above: Order Comment: Speci men Type: ARTERIAL BLOOD SPECIMENOrdering Facility: [facility] Address: [address] [place] [address] Performed By: #### A LLBG ####[facility] LABCLIA [id number] [place] [address] [place] Body temperature 97.52 [degF] Normal [facility] Comment on above: Order Comment: Speci men Type: ARTERIAL BLOOD SPECIMENOrdering Facility: [facility] Address: [address] [place] [address] Performed By: #### A LLBG ####[facility] LABCLIA [id number] [place] [address] [place] Order Comment: Speci men Type: VENOUS BLOOD SPECIMENOrdering Facility: [facility] Address: [address] [place] [address] Performed By: #### 2 4344-4 ####[facility] LABCLIA [id number] [place] [address] [place] Calcium.ionized (Bld) [Mass/Vol] 1.16 mmol/L Normal 1.08-1.30 [facility] Comment on above: Order Comment: Speci men Type: ARTERIAL BLOOD SPECIMENOrdering Facility: [facility] Address: [address] [place] [address] Performed By: #### A LLBG ####[facility] LABCLIA [id number] [place] [address] [place] Calcium.ionized adjusted to pH 7.4 (BldA) [Moles/Vol] 1.15 mmol/L Normal 1.08-1.30 [facility] Comment on above: Order Comment: Speci men Type: ARTERIAL BLOOD SPECIMENOrdering Facility: [facility] Address: [address] [place] [address] Performed By: #### A LLBG ####[facility] LABCLIA [id number] [place] [id number] [place] Carboxyhemoglobin (BldA) [Mass fraction] 1.3 % Normal 0.0-2.0 [facility] [facility] Comment on above: Order Comment: Speci men Type: ARTERIAL BLOOD SPECIMENOrdering Facility: [facility] Address: [address] [place] [address] Result Comment: Carb oxyhemoglobin Reference Range for Smokers: 2.0-8.0% Performed By: #### A LLBG ####[facility] LABCLIA [id number] [place] [address] [place] CO2 (Bld) [Partial pressure] 53 mm Hg High 36-46 [facility] Comment on above: Order Comment: Speci men Type: ARTERIAL BLOOD SPECIMENOrdering Facility: [facility] Address: [address] [place] [address] Performed By: #### A LLBG ####[facility] LABCLIA [id number] [place] [address] [place] CO2 adjusted to patient's actual temperature (Bld) [Partial pressure] 51 mmHg High 36-46 [facility] Comment on above: Order Comment: Speci men Type: ARTERIAL BLOOD SPECIMENOrdering Facility: [facility] Address: [address] [place] [address] Performed By: #### A LLBG ####[facility] LABCLIA [id number] [address] [address] [place] Glucose [Mass/Vol] 155 mg/dL High 60-105 [facility] Comment on above: Order Comment: Speci men Type: ARTERIAL BLOOD SPECIMENOrdering Facility: [facility] Address: [address] [place] [address] Performed By: #### A LLBG ####[facility] LABCLIA [id number] [place] [id number] [place] HCO3 (Bld) [Moles/Vol] 31 mmol/L High 22-26 [facility] Comment on above: Order Comment: Speci men Type: ARTERIAL BLOOD SPECIMENOrdering Facility: [facility] Address: [address] [place] [address] Performed By: #### A LLBG ####[facility] LABCLIA [id number] [place] [address] [place] Hematocrit (Bld) [Volume fraction] 27.8 % Low 39.0-51.0 [facility] Comment on above: Order Comment: Speci men Type: ARTERIAL BLOOD SPECIMENOrdering Facility: [facility] Address: [address] [place] [address] Performed By: #### A LLBG ####[facility] LABIA [id number] [place] [address] [place] Hemoglobin (Bld) [Mass/Vol] 9.0 g/dL Low 13.0-17.0 [facility] Comment on above: Order Comment: Speci men Type: ARTERIAL BLOOD SPECIMENOrdering Facility: [facility] Address: [address] [place] [address] Performed By: #### A LLBG ####[facility] LABIA [id number] [place] [address] [place] Lactate [Moles/Vol] 0.5 mmol/L Normal 0.5-2.2 [facility] Comment on above: Order Comment: Speci men Type: ARTERIAL BLOOD SPECIMENOrdering Facility: [facility] Address: [address] [place] [address] Performed By: #### A LLBG ####[facility] LABCLIA [id number] [place] [address] [place] LITERS 4 Liters/min Normal [facility] Comment on above: Order Comment: Speci men Type: ARTERIAL BLOOD SPECIMENOrdering Facility: [facility] Address: [address] [place] [address] Performed By: #### A LLBG ####[facility] LABCLIA [id number] [place] [address] [place] Order Comment: Speci men Type: VENOUS BLOOD SPECIMENOrdering Facility: [facility] Address: [address] [id number] Performed By: #### 2 4344-4 ####[facility] LABCLIA [id number] [address] [place] [address] [place] Methemoglobin (Bld) [Mass fraction] 1.6 % High 0.0-1.5 [facility] Comment on above: Order Comment: Speci men Type: ARTERIAL BLOOD SPECIMENOrdering Facility: [facility] Address: [address] [place], [place] [address] Performed By: #### A LLBG ####[facility] LABCLIA [id number] [address] [place] [address] [place] O2 THERAPY NC = Nasal Cannula Normal [facility] Comment on above: Order Comment: Speci men Type: ARTERIAL BLOOD SPECIMENOrdering Facility: [facility] Address: [address] [place] [address] Performed By: #### A LLBG ####[facility] LABCLIA [id number] [address] [place] [address] [place] Order Comment: Speci men Type: VENOUS BLOOD SPECIMENOrdering Facility: [facility] Address: [address] [place], [place] [address] Performed By: #### 2 4344-4 ####[facility] LABCLIA [id number] [address] [place] [address] [place] Oxygen (Bld) [Partial pressure] 96 mm Hg High 85-95 [facility] Comment on above: Order Comment: Speci men Type: ARTERIAL BLOOD SPECIMENOrdering Facility: [facility] Address: [address] [id number] Performed By: #### A LLBG ####[facility] LABCLIA [id number] [address] [place] [address] [place] Oxygen adjusted to patient's actual temperature (Bld) [Partial pressure] 93 mmHg Normal 85-95 [facility] Comment on above: Order Comment: Speci men Type: ARTERIAL BLOOD SPECIMENOrdering Facility: [facility] Address: [address] [place] [address] Performed By: #### A LLBG ####[facility] LABCLIA [id number] [address] [address] [place] Oxyhemoglobin (BldA) [Mass fraction] 94 % Low 95-98 [facility] Comment on above: Order Comment: Speci men Type: ARTERIAL BLOOD SPECIMENOrdering Facility: [facility] Address: [address] [place] [address] Performed By: #### A LLBG ####[facility] LABIA [id number] [address] [address] [place] pH (Bld) 7.38 [pH] Normal 7.35-7.45 [facility] Comment on above: Order Comment: Speci men Type: ARTERIAL BLOOD SPECIMENOrdering Facility: [facility] Address: [address] [place] [address] Performed By: #### A LLBG ####[facility] LABIA [id number] [place] [address] [place] pH adjusted to patient's actual temperature (Bld) 7.39 Normal 7.35-7.45 [facility] Comment on above: Order Comment: Speci men Type: ARTERIAL BLOOD SPECIMENOrdering Facility: [facility] Address: [address] [place] [address] Performed By: #### A LLBG ####[facility] LABIA [id number] [place] [id number] [place] Potassium [Moles/Vol] 4.4 mmol/L Normal 3.5-5.0 [facility] Comment on above: Order Comment: Speci men Type: ARTERIAL BLOOD SPECIMENOrdering Facility: [facility] Address: [address] [place] [address] Performed By: #### A LLBG ####[facility] LABCLIA [id number] [place] [address] [place] Sodium [Moles/Vol] 131 mmol/L Low 136-144 [facility] Comment on above: Order Comment: Speci men Type: ARTERIAL BLOOD SPECIMENOrdering Facility: [facility] Address: [address] [place] [address] Performed By: #### A LLBG ####[facility] LABCLIA [id number] [place] [address] [place] Base excess Calc (Bld) [Moles/Vol] 6 mmol/L High 0-2 [facility] Comment on above: Order Comment: Speci men Type: ARTERIAL BLOOD SPECIMENOrdering Facility: [facility] Address: [address] [place] [address] Performed By: #### A LLBG ####[facility] LABIA [id number] [place] [address] [place] Body temperature 98.6 [degF] Normal [facility] Comment on above: Order Comment: Speci men Type: ARTERIAL BLOOD SPECIMENOrdering Facility: [facility] Address: [address] [place] [address] Performed By: #### A LLBG ####[facility] LABIA [id number] [place] [address] [place] Calcium.ionized (Bld) [Mass/Vol] 1.15 mmol/L Normal 1.08-1.30 [facility] Comment on above: Order Comment: Speci men Type: ARTERIAL BLOOD SPECIMENOrdering Facility: [facility] Address: [address] [place] [address] Performed By: #### A LLBG ####[facility] LABCLIA [id number] [place] [address] [place] Calcium.ionized adjusted to pH 7.4 (BldA) [Moles/Vol] 1.16 mmol/L Normal 1.08-1.30 [facility] Comment on above: Order Comment: Speci men Type: ARTERIAL BLOOD SPECIMENOrdering Facility: [facility] Address: [address] [place] [address] Performed By: #### A LLBG ####[facility] LABCLIA [id number] [place] [address] [place] Carboxyhemoglobin (BldA) [Mass fraction] 0.4 % Normal 0.0-2.0 [facility] Comment on above: Order Comment: Speci men Type: ARTERIAL BLOOD SPECIMENOrdering Facility: [facility] Address: [address] [place] [address] Result Comment: Carb oxyhemoglobin Reference Range for Smokers: 2.0-8.0% Performed By: #### A LLBG ####[facility] LABCLIA [id number] [place] [address] [place] CO2 (Bld) [Partial pressure] 47 mm Hg High 36-46 [facility] Comment on above: Order Comment: Speci men Type: ARTERIAL BLOOD SPECIMENOrdering Facility: [facility] Address: [address] [place] [address] Performed By: #### A LLBG ####[facility] LABCLIA [id number] [place] [address] [place] Glucose [Mass/Vol] 157 mg/dL High 60-105 [facility] Comment on above: Order Comment: Speci men Type: ARTERIAL BLOOD SPECIMENOrdering Facility: [facility] Address: [address] [place] [address] Performed By: #### A LLBG ####[facility] LABCLIA [id number] [place] [address] [place] HCO3 (Bld) [Moles/Vol] 31 mmol/L High 22-26 [facility] Comment on above: Order Comment: Speci men Type: ARTERIAL BLOOD SPECIMENOrdering Facility: [facility] Address: [address] [place] [address] Performed By: #### A LLBG ####[facility] LABCLIA [id number] [place] [address] [place] Hematocrit (Bld) [Volume fraction] 28.2 % Low 39.0-51.0 [facility] Comment on above: Order Comment: Speci men Type: ARTERIAL BLOOD SPECIMENOrdering Facility: [facility] Address: [address] [place] [address] Performed By: #### A LLBG ####[facility] LABIA [id number] [place] [address] [place] Hemoglobin (Bld) [Mass/Vol] 9.1 g/dL Low 13.0-17.0 [facility] Comment on above: Order Comment: Speci men Type: ARTERIAL BLOOD SPECIMENOrdering Facility: [facility] Address: [address] [place] [address] Performed By: #### A LLBG ####[facility] LABIA [id number] [place] [address] [place] Lactate [Moles/Vol] 0.9 mmol/L Normal 0.5-2.2 [facility] Comment on above: Order Comment: Speci men Type: ARTERIAL BLOOD SPECIMENOrdering Facility: [facility] Address: [address] [place] [address] Performed By: #### A LLBG ####[facility] LABCLIA [id number] [place] [address] [place] LITERS 5 Liters/min Normal [facility] Comment on above: Order Comment: Speci men Type: ARTERIAL BLOOD SPECIMENOrdering Facility: [facility] Address: [address] [place] [address] Performed By: #### A LLBG ####[facility] LABIA [id number] [place] [address] [place] Methemoglobin (Bld) [Mass fraction] 1.4 % Normal 0.0-1.5 [facility] Comment on above: Order Comment: Speci men Type: ARTERIAL BLOOD SPECIMENOrdering Facility: [facility] Address: [address] [place] [address] Performed By: #### A LLBG ####[facility] LABCLIA [id number] [place] [id number] [place] O2 THERAPY NC = Nasal Cannula Normal [facility] Comment on above: Order Comment: Speci men Type: ARTERIAL BLOOD SPECIMENOrdering Facility: [facility] Address: [address] [place] [address] Performed By: #### A LLBG ####[facility] LABCLIA [id number] [place] [id number] [place] Oxygen (Bld) [Partial pressure] 79 mm Hg Low 85-95 [facility] Comment on above: Order Comment: Speci men Type: ARTERIAL BLOOD SPECIMENOrdering Facility: [facility] Address: [address] [place] [address] Performed By: #### A LLBG ####[facility] LABCLIA [id number] [address] [place] Oxyhemoglobin (BldA) [Mass fraction] 94 % Low 95-98 [facility] Comment on above: Order Comment: Speci men Type: ARTERIAL BLOOD SPECIMENOrdering Facility: [facility] Address: [address] [place] [address] Performed By: #### A LLBG ####[facility] LABCLIA [id number] [place] [id number] [place] pH (Bld) 7.43 [pH] Normal 7.35-7.45 [facility] Comment on above: Order Comment: Speci men Type: ARTERIAL BLOOD SPECIMENOrdering Facility: [facility] Address: [address] [place] [address] Performed By: #### A LLBG ####[facility] LABCLIA [id number] [place] [id number] [place] Potassium [Moles/Vol] 4.5 mmol/L Normal 3.5-5.0 [facility] Comment on above: Order Comment: Speci men Type: ARTERIAL BLOOD SPECIMENOrdering Facility: [facility] Address: [address] [place] [address] Performed By: #### A LLBG ####[facility] LABCLIA [id number] [place] [address] [place] Sodium [Moles/Vol] 132 mmol/L Low 136-144 [facility] Comment on above: Order Comment: Speci men Type: ARTERIAL BLOOD SPECIMENOrdering Facility: [facility] Address: [address] [place] [address] Performed By: #### A LLBG ####[facility] LABCLIA [id number] [place] [address] [place] CBC panel Auto (Bld)on 10-22 Erythrocyte distribution width (RBC) [Ratio] 16.9 % High 11.5-15.0 [facility] Comment on above: Order Comment: Speci men Type: BLOOD SPECIMENOrdering Facility: [facility] Address: [address] [place] [address] Performed By: #### 5 8410-2 ####[facility] LABIA [id number] [place] [address] [place] Hematocrit (Bld) [Volume fraction] 27.1 % Low 39.0-51.0 [facility] Comment on above: Order Comment: Speci men Type: BLOOD SPECIMENOrdering Facility: [facility] Address: [address] [place] [address] Performed By: #### 5 8410-2 ####[facility] LABCLIA [id number] [place] [address] [place] Hemoglobin (Bld) [Mass/Vol] 8.7 g/dL Low 13.0-17.0 [facility] Comment on above: Order Comment: Speci men Type: BLOOD SPECIMENOrdering Facility: [facility] Address: [address] [place] [address] Performed By: #### 5 8410-2 ####[facility] LABCLIA [id number] [place] [address] [place] MCH (RBC) [Entitic mass] 32.0 pg Normal 26.0-34.0 [facility] Comment on above: Order Comment: Speci men Type: BLOOD SPECIMENOrdering Facility: [facility] Address: [address] [place] [address] Performed By: #### 5 8410-2 ####[facility] LABIA [id number] [address] [place] MCHC (RBC) [Mass/Vol] 32.1 g/dL Normal 30.5-36.0 [facility] Comment on above: Order Comment: Speci men Type: BLOOD SPECIMENOrdering Facility: [facility] Address: [address] [place] [address] Performed By: #### 5 8410-2 ####[facility] LABIA [id number] [address] [place] MCV (RBC) [Entitic vol] 99.6 fL Normal 80.0-100.0 C [facility] Comment on above: Order Comment: Speci men Type: BLOOD SPECIMENOrdering Facility: [facility] Address: [address] [place] [address] Performed By: #### 5 8410-2 ####[facility] LABIA [id number] [address] [place] Nucleated RBC (Bld) [#/Vol] 10*3/uL Normal <0.01 [facility] Comment on above: Order Comment: Speci men Type: BLOOD SPECIMENOrdering Facility: [facility] Address: [address] [place] [address] Performed By: #### 5 8410-2 ####[facility] [id number] [place] [address] [place] Platelet mean volume (Bld) [Entitic vol] 11.8 fL Normal 9.0-12.7 [facility] Comment on above: Order Comment: Speci men Type: BLOOD SPECIMENOrdering Facility: [facility] Address: [address] [place] [address] Performed By: #### 5 8410-2 ####[facility] [id number] [place] [address] [place] Platelets (Bld) [#/Vol] 116 10*3/uL Low 150-400 [facility] Comment on above: Order Comment: Speci men Type: BLOOD SPECIMENOrdering Facility: [facility] Address: [address] [place] [address] Result Comment: No c lot detected.Results checked and verified. Performed By: #### 5 8410-2 ####[facility] [id number] [place] [address] [place] RBC (Bld) [#/Vol] 2.72 10*6/uL Low 4.20-6.00 [facility] Comment on above: Order Comment: Speci men Type: BLOOD SPECIMENOrdering Facility: [facility] Address: [address] [place] [address] Performed By: #### 5 8410-2 ####[facility] [id number] [place] [address] [place] WBC (Bld) [#/Vol] 5.75 10*3/uL Normal 3.70-11.00 [facility] Comment on above: Order Comment: Speci men Type: BLOOD SPECIMENOrdering Facility: [facility] Address: [address] [place] [address] Performed By: #### 5 8410-2 ####[facility] LABIA [id number] [address] [address] [place] Comprehensive metabolic 2000 panelon 10-22-2024 Albumin [Mass/Vol] 2.5 g/dL Low 3.9-4.9 [facility] Comment on above: Order Comment: Speci men Type: BLOOD SPECIMENOrdering Facility: [facility] Address: [address] [place] [address] Performed By: #### 2 4323-8, , 2776-02 ####[facility] LABIA [id number] [place] [address] [place] ALP [Catalytic activity/Vol] 90 U/L Normal 38-113 [facility] Comment on above: Order Comment: Speci men Type: BLOOD SPECIMENOrdering Facility: [facility] Address: [address] [place] [address] Performed By: #### 2 4323-8, , 2776-02 ####[facility] LABIA [id number] [place] [id number] [place] ALT [Catalytic activity/Vol] 11 U/L Normal 10-54 [facility] Comment on above: Order Comment: Speci men Type: BLOOD SPECIMENOrdering Facility: [facility] Address: [address] [place] [address] Performed By: #### 2 4323-8, , 2776-02 ####[facility] LABIA [id number] [address] [address] [place] Anion gap [Moles/Vol] 12 mmol/L Normal 8-15 [facility] Comment on above: Order Comment: Speci men Type: BLOOD SPECIMENOrdering Facility: [facility] Address: [address] [place], [place] [address] Performed By: #### 2 4323-8, , 2776-02 ####[facility] LABCLIA [id number] [address] [address] [place] AST [Catalytic activity/Vol] 19 U/L Normal 14-40 [facility] Comment on above: Order Comment: Speci men Type: BLOOD SPECIMENOrdering Facility: [facility] Address: [address] [place], [place] [address] Performed By: #### 2 4323-8, , 2776-02 ####[facility] LABCLIA [id number] [address] [address] [place] Bilirubin [Mass/Vol] 0.3 mg/dL Normal 0.2-1.3 [facility] Comment on above: Order Comment: Speci men Type: BLOOD SPECIMENOrdering Facility: [facility] Address: [address] [place], [place] [address] Performed By: #### 2 4323-8, , 2776-02 ####[facility] LABCLIA [id number] [address] [address] [place] Calcium [Mass/Vol] 8.3 mg/dL Low 8.5-10.2 [facility] Comment on above: Order Comment: Speci men Type: BLOOD SPECIMENOrdering Facility: [facility] Address: [address] [place], [place] [address] Performed By: #### 2 4323-8, , 2776-02 ####[facility] LABCLIA [id number] [address] [address] [place] Chloride [Moles/Vol] 98 mmol/L Normal 98-107 [facility] Comment on above: Order Comment: Speci men Type: BLOOD SPECIMENOrdering Facility: [facility] Address: [address] [place] [address] Performed By: #### 2 4323-8, , 2776-02 ####[facility] LABCLIA [id number] [place] [id number] [place] CO2 [Moles/Vol] 25 mmol/L Normal 22-30 [facility] Comment on above: Order Comment: Speci men Type: BLOOD SPECIMENOrdering Facility: [facility] Address: [address] [place] [address] Performed By: #### 2 4323-8, , 2776-02 ####[facility] LABCLIA [id number] [place] [id number] [place] Creatinine [Mass/Vol] 1.38 mg/dL High 0.73-1.22 [facility] Comment on above: Order Comment: Speci men Type: BLOOD SPECIMENOrdering Facility: [facility] Address: [address] [place] [address] Performed By: #### 2 4323-8, , 2776-02 ####[facility] LABIA [id number] [place] [id number] [place] eGFRcr SerPlBld CKD-EPI 2020 58 mL/min/1.73m??? Low >=60 [facility] Comment on above: Order Comment: Speci men Type: BLOOD SPECIMENOrdering Facility: [facility] Address: [address] [place] [address] Result Comment: Gurwinder mated Glomerular Filtration Rate [...] Performed By: #### 2 4323-8, , 2776-02 ####[facility] LABCLIA [id number] [address] [address] [place] Glucose [Mass/Vol] 157 mg/dL High 74-99 [facility] Comment on above: Order Comment: Gini nowak Type: BLOOD SPECIMENOrdering Facility: [facility] Address: [address] [place], [place] [address] Result Comment: The [place] [employer] (ADA) provides guidance for cutoff [...] Standards of Medical Care in Diabetes 2016, [place] [employer]. Diabetes Care. 2016.39(Suppl 1). Performed By: #### 2 4323-8, , 2776- ####[facility] LABCLIA [id number] [place] [address] [place] Potassium [Moles/Vol] 4.7 mmol/L Normal 3.7-5.1 [facility] Comment on above: Order Comment: Gini nowak Type: BLOOD SPECIMENOrdering Facility: [facility] Address: [address] [place] [address] Performed By: #### 2 4323-8, , 2776-02 ####[facility] LABCLIA [id number] [place] [id number] [place] Protein [Mass/Vol] 5.1 g/dL Low 6.3-8.0 [facility] Comment on above: Order Comment: Gini nowak Type: BLOOD SPECIMENOrdering Facility: [facility] Address: [address] [place] [id number] Performed By: #### 2 4323-8, , 2776-02 ####[facility] LABCLIA [id number] [address] [address] [place] Sodium [Moles/Vol] 135 mmol/L Low 136-144 [facility] Comment on above: Order Comment: Speci men Type: BLOOD SPECIMENOrdering Facility: [facility] Address: [address] [place] [address] Performed By: #### 2 4323-8, 00866-4, 2777-1 ####[facility] LABCLIA [id number] [place] [address] [place] Urea nitrogen [Mass/Vol] 21 mg/dL Normal 9-24 [facility] Comment on above: Order Comment: Speci men Type: BLOOD SPECIMENOrdering Facility: [facility] Address: [address] [place] [address] Performed By: #### 2 4323-8, , 2776-02 ####[facility] LABIA [id number] [place] [address] [place] Fact Xa PPP-aCncon Coagulation factor X activated act Coag Qn (PPP) 0.53 IU/mL High <0.10 [facility] Comment on above: Order Comment: Corbyi eliu Type: BLOOD SPECIMENOrdering Facility: [facility] Address: [address] [place] [address] Result Comment: The recommended therapeutic range for treatment of venous and arterial thrombosis with intravenous unfractionated heparin is an anti Xa activity level of 0.3 to 0.7 IU/mL. In patients with concomitant therapy with thrombolytic agents and/or platelet glycoprotein IIb/IIIa antagonists, the recommended therapeutic range is an anti Xa activity level of 0.2 to 0.5 IU/mL. Performed By: #### 3 217-7 ####[facility] LABIA [id number] [place] [address] [place] Gas and Carbon monoxide pane l (BldV)on 10-22-2024 Base excess Calc (BldV) [Moles/Vol] 6 mmol/L High 0-2 [facility] Comment on above: Order Comment: Speci men Type: VENOUS BLOOD SPECIMENOrdering Facility: [facility] Address: [address] [place] [address] Performed By: #### 2 4344-4 ####[facility] LABIA [id number] [place] [address] [place] Body temperature 98.6 [degF] Normal [facility] Comment on above: Order Comment: Speci men Type: VENOUS BLOOD SPECIMENOrdering Facility: [facility] Address: [address] [place] [address] Performed By: #### 2 4344-4 ####[facility] LABIA [id number] [place] [address] [place] Calcium.ionized (Bld) [Mass/Vol] 1.13 mmol/L Normal 1.08-1.30 [facility] Comment on above: Order Comment: Speci men Type: VENOUS BLOOD SPECIMENOrdering Facility: [facility] Address: [address] [place] [address] Performed By: #### 2 4344-4 ####[facility] [id number] [place] [address] [place] Calcium.ionized adjusted to pH 7.4 (BldA) [Moles/Vol] 1.13 mmol/L Normal 1.08-1.30 [facility] Comment on above: Order Comment: Speci men Type: VENOUS BLOOD SPECIMENOrdering Facility: [facility] Address: [address] [place] [address] Performed By: #### 2 4344-4 ####[facility] [id number] [place] [address] [place] Carboxyhemoglobin (BldV) [Mass fraction] 1.2 % Normal 0.0-2.0 [facility] Comment on above: Order Comment: Speci men Type: VENOUS BLOOD SPECIMENOrdering Facility: [facility] Address: [address] [place] [address] Result Comment: Carb oxyhemoglobin Reference Range for Smokers: 2.0-8.0% Performed By: #### 2 4344-4 ####[facility] LABCLIA [id number] [place] [address] [place] CO2 (BldV) [Partial pressure] 52 mm[Hg] Normal 42-55 [facility] Comment on above: Order Comment: Speci men Type: VENOUS BLOOD SPECIMENOrdering Facility: [facility] Address: [address] [place] [address] Performed By: #### 2 4344-4 ####[facility] LABCLIA [id number] [place] [address] [place] Glucose [Mass/Vol] 106 mg/dL High 60-105 [facility] Comment on above: Order Comment: Speci men Type: VENOUS BLOOD SPECIMENOrdering Facility: [facility] Address: [address] [place] [address] Performed By: #### 2 4344-4 ####[facility] LABCLIA [id number] [place] [address] [place] HCO3 (Bld) [Moles/Vol] 31 mmol/L High 24-28 [facility] Comment on above: Order Comment: Speci men Type: VENOUS BLOOD SPECIMENOrdering Facility: [facility] Address: [address] [place] [address] Performed By: #### 2 4344-4 ####[facility] LABCLIA [id number] [place] [id number] [place] Hematocrit (Bld) [Volume fraction] 25.2 % Low 39.0-51.0 [facility] Comment on above: Order Comment: Speci men Type: VENOUS BLOOD SPECIMENOrdering Facility: [facility] Address: [address] [place] [address] Performed By: #### 2 4344-4 ####[facility] LABCLIA [id number] [place] [id number] [place] Hemoglobin (Bld) [Mass/Vol] 8.1 g/dL Low 13.0-17.0 [facility] Comment on above: Order Comment: Speci men Type: VENOUS BLOOD SPECIMENOrdering Facility: [facility] Address: [address] [place] [address] Performed By: #### 2 4344-4 ####[facility] LABCLIA [id number] [place] [address] [place] Lactate [Moles/Vol] 0.8 mmol/L Normal 0.5-2.2 [facility] Comment on above: Order Comment: Speci men Type: VENOUS BLOOD SPECIMENOrdering Facility: [facility] Address: [address] [place] [address] Performed By: #### 2 4344-4 ####[facility] LABCLIA [id number] [place] [address] [place] LITERS 4 Liters/min Normal [facility] Comment on above: Order Comment: Speci men Type: VENOUS BLOOD SPECIMENOrdering Facility: [facility] Address: [address] [place] [address] Performed By: #### 2 4344-4 ####[facility] LABCLIA [id number] [place] [address] [place] Methemoglobin (Bld) [Mass fraction] 1.0 % Normal 0.0-1.5 [facility] Comment on above: Order Comment: Speci men Type: VENOUS BLOOD SPECIMENOrdering Facility: [facility] Address: [address] [place] [address] Performed By: #### 2 4344-4 ####[facility] LABCLIA [id number] [place] [address] [place] O2 THERAPY NC = Nasal Cannula Normal [facility] Comment on above: Order Comment: Speci men Type: VENOUS BLOOD SPECIMENOrdering Facility: [facility] Address: [address] [place] [address] Performed By: #### 2 4344-4 ####[facility] LABCLIA [id number] [address] [place] [address] [place] Oxygen (BldV) [Partial pressure] 35 mm[Hg] Normal 35-45 [facility] Comment on above: Order Comment: Speci men Type: VENOUS BLOOD SPECIMENOrdering Facility: [facility] Address: [address] [place] [address] Performed By: #### 2 4344-4 ####[facility] LABCLIA [id number] [address] [place] [address] [place] Oxygen saturation in Venous blood 57 % Low 60-85 [facility] Comment on above: Order Comment: Speci men Type: VENOUS BLOOD SPECIMENOrdering Facility: [facility] Address: [address] [place] [address] Performed By: #### 2 4344-4 ####[facility] LABIA [id number] [place] [id number] [place] Oxyhemoglobin (BldV) [Mass fraction] 56 % Low 60-85 [facility] Comment on above: Order Comment: Speci men Type: VENOUS BLOOD SPECIMENOrdering Facility: [facility] Address: [address] [place] [address] Performed By: #### 2 4344-4 ####[facility] LABIA [id number] [address] [address] [place] pH (BldV) 7.39 [pH] Normal 7.32-7.42 [facility] Comment on above: Order Comment: Speci men Type: VENOUS BLOOD SPECIMENOrdering Facility: [facility] Address: [address] [place], [place] [address] Performed By: #### 2 4344-4 ####[facility] LABCLIA [id number] [address] [address] [place] Potassium [Moles/Vol] 4.4 mmol/L Normal 3.5-5.0 [facility] Comment on above: Order Comment: Speci men Type: VENOUS BLOOD SPECIMENOrdering Facility: [facility] Address: [address] [place] [address] Performed By: #### 2 4344-4 ####[facility] LABCLIA [id number] [place] [id number] [place] Sodium [Moles/Vol] 132 mmol/L Low 136-144 [facility] Comment on above: Order Comment: Speci men Type: VENOUS BLOOD SPECIMENOrdering Facility: [facility] Address: [address] [place] [address] Performed By: #### 2 4344-4 ####[facility] LABCLIA [id number] [place] [address] [place] Base excess Calc (BldV) [Moles/Vol] 6 mmol/L High 0-2 [facility] Comment on above: Order Comment: Speci men Type: VENOUS BLOOD SPECIMENOrdering Facility: [facility] Address: [address] [place] [address] Performed By: #### 2 4344-4 ####[facility] LABCLIA [id number] [place] [address] [place] Body temperature 98.78 [degF] Normal [facility] Comment on above: Order Comment: Speci men Type: VENOUS BLOOD SPECIMENOrdering Facility: [facility] Address: [address] [place] [address] Performed By: #### 2 4344-4 ####[facility] LABCLIA [id number] [place] [id number] [place] Calcium.ionized (Bld) [Mass/Vol] 1.14 mmol/L Normal 1.08-1.30 [facility] Comment on above: Order Comment: Speci men Type: VENOUS BLOOD SPECIMENOrdering Facility: [facility] Address: [address] [place] [address] Performed By: #### 2 4344-4 ####[facility] LABIA [id number] [place] [address] [place] Calcium.ionized adjusted to pH 7.4 (BldA) [Moles/Vol] 1.14 mmol/L Normal 1.08-1.30 [facility] Comment on above: Order Comment: Speci men Type: VENOUS BLOOD SPECIMENOrdering Facility: [facility] Address: [address] [place] [address] Performed By: #### 2 4344-4 ####[facility] [id number] [place] [address] [place] Carboxyhemoglobin (BldV) [Mass fraction] 1.3 % Normal 0.0-2.0 [facility] Comment on above: Order Comment: Speci men Type: VENOUS BLOOD SPECIMENOrdering Facility: [facility] Address: [address] [place] [address] Result Comment: Carb oxyhemoglobin Reference Range for Smokers: 2.0-8.0% Performed By: #### 2 4344-4 ####[facility] LABIA [id number] [place] [address] [place] CO2 (BldV) [Partial pressure] 51 mm[Hg] Normal 42-55 [facility] Comment on above: Order Comment: Speci men Type: VENOUS BLOOD SPECIMENOrdering Facility: [facility] Address: [address] [place] [address] Performed By: #### 2 4344-4 ####[facility] LABIA [id number] [place] [address] [place] CO2 adjusted to patient's actual temperature (BldV) [Partial pressure] 52 mmHg Normal 42-55 [facility] Comment on above: Order Comment: Speci men Type: VENOUS BLOOD SPECIMENOrdering Facility: [facility] Address: [address] [place] [address] Performed By: #### 2 4344-4 ####[facility] LABCLIA [id number] [address] [place] [address] [place] Glucose [Mass/Vol] 67 mg/dL Normal 60-105 [facility] Comment on above: Order Comment: Speci men Type: VENOUS BLOOD SPECIMENOrdering Facility: [facility] Address: [address] [place] [address] Performed By: #### 2 4344-4 ####[facility] LABCLIA [id number] [address] [place] [address] [place] HCO3 (Bld) [Moles/Vol] 31 mmol/L High 24-28 [facility] Comment on above: Order Comment: Speci men Type: VENOUS BLOOD SPECIMENOrdering Facility: [facility] Address: [address] [place] [address] Performed By: #### 2 4344-4 ####[facility] LABCLIA [id number] [place] [address] [place] Hematocrit (Bld) [Volume fraction] 26.5 % Low 39.0-51.0 [facility] Comment on above: Order Comment: Speci men Type: VENOUS BLOOD SPECIMENOrdering Facility: [facility] Address: [address] [place] [address] Performed By: #### 2 4344-4 ####[facility] LABCLIA [id number] [place] [id number] [place] Hemoglobin (Bld) [Mass/Vol] 8.5 g/dL Low 13.0-17.0 [facility] Comment on above: Order Comment: Speci men Type: VENOUS BLOOD SPECIMENOrdering Facility: [facility] Address: [address] [place] [address] Performed By: #### 2 4344-4 ####[facility] LABCLIA [id number] [place] [id number] [place] Lactate [Moles/Vol] 0.8 mmol/L Normal 0.5-2.2 [facility] Comment on above: Order Comment: Speci men Type: VENOUS BLOOD SPECIMENOrdering Facility: [facility] Address: [address] [place] [id number] Performed By: #### 2 4344-4 ####[facility] LABCLIA [id number] [address] [place] [address] [place] LITERS 4 Liters/min Normal [facility] Comment on above: Order Comment: Speci men Type: VENOUS BLOOD SPECIMENOrdering Facility: [facility] Address: [address] [place], [place] [address] Performed By: #### 2 4344-4 ####[facility] LABCLIA [id number] [address] [address] [place] Methemoglobin (Bld) [Mass fraction] 1.6 % High 0.0-1.5 [facility] Comment on above: Order Comment: Speci men Type: VENOUS BLOOD SPECIMENOrdering Facility: [facility] Address: [address] [place], [place] [address] Performed By: #### 2 4344-4 ####[facility] LABCLIA [id number] [address] [address] [place] O2 THERAPY NC = Nasal Cannula Normal [facility] Comment on above: Order Comment: Speci men Type: VENOUS BLOOD SPECIMENOrdering Facility: [facility] Address: [address] [place] [address] Performed By: #### 2 4344-4 ####[facility] LABCLIA [id number] [address] [address] [place] Oxygen (BldV) [Partial pressure] 35 mm[Hg] Normal 35-45 [facility] Comment on above: Order Comment: Speci men Type: VENOUS BLOOD SPECIMENOrdering Facility: [facility] Address: [address] [place] [address] Performed By: #### 2 4344-4 ####[facility] LABCLIA [id number] [address] [place] [address] [place] Oxygen adjusted to patient's actual temperature (BldV) [Partial pressure] 35 mmHg Normal 35-45 [facility] Comment on above: Order Comment: Speci men Type: VENOUS BLOOD SPECIMENOrdering Facility: [facility] Address: [address] [place], [place] [address] Performed By: #### 2 4344-4 ####[facility] LABCLIA [id number] [address] [address] [place] Oxygen saturation in Venous blood 62 % Normal 60-85 [facility] Comment on above: Order Comment: Speci men Type: VENOUS BLOOD SPECIMENOrdering Facility: [facility] Address: [address] [place], [place] [address] Performed By: #### 2 4344-4 ####[facility] LABCLIA [id number] [address] [address] [place] Oxyhemoglobin (BldV) [Mass fraction] 60 % Normal 60-85 [facility] Comment on above: Order Comment: Speci men Type: VENOUS BLOOD SPECIMENOrdering Facility: [facility] Address: [address] [place], [place] [address] Performed By: #### 2 4344-4 ####[facility] LABCLIA [id number] [address] [address] [place] pH (BldV) 7.40 [pH] Normal 7.32-7.42 [facility] Comment on above: Order Comment: Speci men Type: VENOUS BLOOD SPECIMENOrdering Facility: [facility] Address: [address] [place] [address] Performed By: #### 2 4344-4 ####[facility] LABCLIA [id number] [address] [address] [place] pH adjusted to patient's actual temperature (BldV) 7.40 Normal 7.32-7.42 [facility] Comment on above: Order Comment: Speci men Type: VENOUS BLOOD SPECIMENOrdering Facility: [facility] Address: [address] [place] [id number] Performed By: #### 2 4344-4 ####[facility] LABCLIA [id number] [address] [address] [place] Potassium [Moles/Vol] 4.5 mmol/L Normal 3.5-5.0 [facility] Comment on above: Order Comment: Speci men Type: VENOUS BLOOD SPECIMENOrdering Facility: [facility] Address: [address] [place], [place] [address] Performed By: #### 2 4344-4 ####[facility] LABCLIA [id number] [place] [id number] [place] Sodium [Moles/Vol] 132 mmol/L Low 136-144 [facility] Comment on above: Order Comment: Speci men Type: VENOUS BLOOD SPECIMENOrdering Facility: [facility] Address: [address] [place], [place] [address] Performed By: #### 2 4344-4 ####[facility] LABCLIA [id number] [place] [address] [place] Base excess Calc (BldV) [Moles/Vol] 5 mmol/L High 0-2 [facility] Comment on above: Order Comment: Speci men Type: VENOUS BLOOD SPECIMENOrdering Facility: [facility] Address: [address] [place], [place] [address] Performed By: #### 2 4344-4 ####[facility] LABCLIA [id number] [place] [id number] [place] Body temperature 98.06 [degF] Normal [facility] Comment on above: Order Comment: Speci men Type: VENOUS BLOOD SPECIMENOrdering Facility: [facility] Address: [address] [place], [place] [address] Performed By: #### 2 4344-4 ####[facility] LABCLIA [id number] [place] [address] [place] Calcium.ionized (Bld) [Mass/Vol] 1.15 mmol/L Normal 1.08-1.30 [facility] Comment on above: Order Comment: Speci men Type: VENOUS BLOOD SPECIMENOrdering Facility: [facility] Address: [address] [place] [address] Performed By: #### 2 4344-4 ####[facility] LABIA [id number] [place] [address] [place] Calcium.ionized adjusted to pH 7.4 (BldA) [Moles/Vol] 1.13 mmol/L Normal 1.08-1.30 [facility] Comment on above: Order Comment: Speci men Type: VENOUS BLOOD SPECIMENOrdering Facility: [facility] Address: [address] [place] [address] Performed By: #### 2 4344-4 ####[facility] [id number] [place] [address] [place] Carboxyhemoglobin (BldV) [Mass fraction] 1.6 % Normal 0.0-2.0 [facility] Comment on above: Order Comment: Speci men Type: VENOUS BLOOD SPECIMENOrdering Facility: [facility] Address: [address] [place] [address] Result Comment: Carb oxyhemoglobin Reference Range for Smokers: 2.0-8.0% Performed By: #### 2 4344-4 ####[facility] LABIA [id number] [place] [address] [place] CO2 (BldV) [Partial pressure] 54 mm[Hg] Normal 42-55 [facility] Comment on above: Order Comment: Speci men Type: VENOUS BLOOD SPECIMENOrdering Facility: [facility] Address: [address] [place] [address] Performed By: #### 2 4344-4 ####[facility] LABCLIA [id number] [facility] [address] [place] [address] [place] CO2 adjusted to patient's actual temperature (BldV) [Partial pressure] 53 mmHg Normal 42-55 [facility] Comment on above: Order Comment: Speci men Type: VENOUS BLOOD SPECIMENOrdering Facility: [facility] Address: [address] [place] [address] Performed By: #### 2 4344-4 ####[facility] LABCLIA [id number] [place] [address] [place] Glucose [Mass/Vol] 185 mg/dL High 60-105 [facility] Comment on above: Order Comment: Speci men Type: VENOUS BLOOD SPECIMENOrdering Facility: [facility] Address: [address] [place] [address] Performed By: #### 2 4344-4 ####[facility] LABCLIA [id number] [place] [address] [place] HCO3 (Bld) [Moles/Vol] 30 mmol/L High 24-28 [facility] Comment on above: Order Comment: Speci men Type: VENOUS BLOOD SPECIMENOrdering Facility: [facility] Address: [address] [place] [address] Performed By: #### 2 4344-4 ####[facility] LABCLIA [id number] [place] [address] [place] Hematocrit (Bld) [Volume fraction] 27.8 % Low 39.0-51.0 [facility] Comment on above: Order Comment: Speci men Type: VENOUS BLOOD SPECIMENOrdering Facility: [facility] Address: [address] [place] [address] Performed By: #### 2 4344-4 ####[facility] LABCLIA [id number] [facility] [place] [id number] [place] Hemoglobin (Bld) [Mass/Vol] 9.0 g/dL Low 13.0-17.0 [facility] Comment on above: Order Comment: Speci men Type: VENOUS BLOOD SPECIMENOrdering Facility: [facility] Address: [address] [place] [id number] Performed By: #### 2 4344-4 ####[facility] LABCLIA [id number] [address] [address] [place] Lactate [Moles/Vol] 1.7 mmol/L Normal 0.5-2.2 [facility] Comment on above: Order Comment: Speci men Type: VENOUS BLOOD SPECIMENOrdering Facility: [facility] Address: [address] [place] [address] Performed By: #### 2 4344-4 ####[facility] LABCLIA [id number] [place] [id number] [place] LITERS 4 Liters/min Normal [facility] Comment on above: Order Comment: Speci men Type: VENOUS BLOOD SPECIMENOrdering Facility: [facility] Address: [address] [place] [address] Performed By: #### 2 4344-4 ####[facility] LABCLIA [id number] [place] [address] [place] Methemoglobin (Bld) [Mass fraction] 1.8 % High 0.0-1.5 [facility] Comment on above: Order Comment: Speci men Type: VENOUS BLOOD SPECIMENOrdering Facility: [facility] Address: [address] [place] [address] Performed By: #### 2 4344-4 ####[facility] LABCLIA [id number] [place] [id number] [place] O2 THERAPY NC = Nasal Cannula Normal [facility] Comment on above: Order Comment: Speci men Type: VENOUS BLOOD SPECIMENOrdering Facility: [facility] Address: [address] [place], [place] [address] Performed By: #### 2 4344-4 ####[facility] LABCLIA [id number] [address] [place] [address] [place] Oxygen (BldV) [Partial pressure] 39 mm[Hg] Normal 35-45 [facility] Comment on above: Order Comment: Speci men Type: VENOUS BLOOD SPECIMENOrdering Facility: [facility] Address: [address] [place], [place] [address] Performed By: #### 2 4344-4 ####[facility] LABCLIA [id number] [address] [place] [address] [place] Oxygen adjusted to patient's actual temperature (BldV) [Partial pressure] 38 mmHg Normal 35-45 [facility] Comment on above: Order Comment: Speci men Type: VENOUS BLOOD SPECIMENOrdering Facility: [facility] Address: [address] [place], [place] [address] Performed By: #### 2 4344-4 ####[facility] LABCLIA [id number] [place] [id number] [place] Oxygen saturation in Venous blood 64 % Normal 60-85 [facility] Comment on above: Order Comment: Speci men Type: VENOUS BLOOD SPECIMENOrdering Facility: [facility] Address: [address] [place], [place] [address] Performed By: #### 2 4344-4 ####[facility] LABCLIA [id number] [address] [address] [place] Oxyhemoglobin (BldV) [Mass fraction] 61 % Normal 60-85 [facility] Comment on above: Order Comment: Speci men Type: VENOUS BLOOD SPECIMENOrdering Facility: [facility] Address: [address] [place] [address] Performed By: #### 2 4344-4 ####[facility] LABCLIA [id number] [address] [address] [place] pH (BldV) 7.37 [pH] Normal 7.32-7.42 [facility] Comment on above: Order Comment: Speci men Type: VENOUS BLOOD SPECIMENOrdering Facility: [facility] Address: [address] [place], [place] [address] Performed By: #### 2 4344-4 ####[facility] LABCLIA [id number] [place] [address] [place] pH adjusted to patient's actual temperature (BldV) 7.37 Normal 7.32-7.42 [facility] Comment on above: Order Comment: Speci men Type: VENOUS BLOOD SPECIMENOrdering Facility: [facility] Address: [address] [place], [place] [address] Performed By: #### 2 4344-4 ####[facility] LABCLIA [id number] [place] [address] [place] Potassium [Moles/Vol] 4.4 mmol/L Normal 3.5-5.0 [facility] Comment on above: Order Comment: Speci men Type: VENOUS BLOOD SPECIMENOrdering Facility: [facility] Address: [address] [place] [address] Performed By: #### 2 4344-4 ####[facility] LABCLIA [id number] [place] [address] [place] Sodium [Moles/Vol] 133 mmol/L Low 136-144 [facility] Comment on above: Order Comment: Speci men Type: VENOUS BLOOD SPECIMENOrdering Facility: [facility] Address: [address] [place], [place] [address] Performed By: #### 2 4344-4 ####[facility] LABCLIA [id number] [address] [address] [place] Base excess Calc (BldV) [Moles/Vol] 4 mmol/L High 0-2 [facility] Comment on above: Order Comment: Speci men Type: VENOUS BLOOD SPECIMENOrdering Facility: [facility] Address: [address] [place], [place] [address] Performed By: #### 2 4344-4 ####[facility] LABCLIA [id number] [place] [address] [place] Calcium.ionized (Bld) [Mass/Vol] 1.11 mmol/L Normal 1.08-1.30 [facility] Comment on above: Order Comment: Speci men Type: VENOUS BLOOD SPECIMENOrdering Facility: [facility] Address: [address] [place] [address] Performed By: #### 2 4344-4 ####[facility] LABIA [id number] [place] [address] [place] Calcium.ionized adjusted to pH 7.4 (BldA) [Moles/Vol] 1.10 mmol/L Normal 1.08-1.30 [facility] Comment on above: Order Comment: Speci men Type: VENOUS BLOOD SPECIMENOrdering Facility: [facility] Address: [address] [place] [address] Performed By: #### 2 4344-4 ####[facility] LABIA [id number] [place] [address] [place] Carboxyhemoglobin (BldV) [Mass fraction] 1.4 % Normal 0.0-2.0 [facility] Comment on above: Order Comment: Speci men Type: VENOUS BLOOD SPECIMENOrdering Facility: [facility] Address: [address] [place] [address] Result Comment: Carb oxyhemoglobin Reference Range for Smokers: 2.0-8.0% Performed By: #### 2 4344-4 ####[facility] LABIA [id number] [place] [address] [place] CO2 (BldV) [Partial pressure] 49 mm[Hg] Normal 42-55 [facility] Comment on above: Order Comment: Speci men Type: VENOUS BLOOD SPECIMENOrdering Facility: [facility] Address: [address] [place] [address] Performed By: #### 2 4344-4 ####[facility] LABIA [id number] [place] [id number] [place] CO2 adjusted to patient's actual temperature (BldV) [Partial pressure] 48 mmHg Normal 42-55 [facility] Comment on above: Order Comment: Speci men Type: VENOUS BLOOD SPECIMENOrdering Facility: [facility] Address: [address] [place] [address] Performed By: #### 2 4344-4 ####[facility] LABCLIA [id number] [place] [address] [place] Glucose [Mass/Vol] 142 mg/dL High 60-105 [facility] Comment on above: Order Comment: Speci men Type: VENOUS BLOOD SPECIMENOrdering Facility: [facility] Address: [address] [place] [address] Performed By: #### 2 4344-4 ####[facility] LABCLIA [id number] [place] [address] [place] HCO3 (Bld) [Moles/Vol] 29 mmol/L High 24-28 [facility] Comment on above: Order Comment: Speci men Type: VENOUS BLOOD SPECIMENOrdering Facility: [facility] Address: [address] [place] [address] Performed By: #### 2 4344-4 ####[facility] LABCLIA [id number] [place] [id number] [place] Hematocrit (Bld) [Volume fraction] 26.6 % Low 39.0-51.0 [facility] Comment on above: Order Comment: Speci men Type: VENOUS BLOOD SPECIMENOrdering Facility: [facility] Address: [address] [place] [address] Performed By: #### 2 4344-4 ####[facility] LABCLIA [id number] [address], [facility]95 [place] Hemoglobin (Bld) [Mass/Vol] 8.6 g/dL Low 13.0-17.0 [facility] Comment on above: Order Comment: Speci men Type: VENOUS BLOOD SPECIMENOrdering Facility: [facility] Address: [address] [place], [place] [address] Performed By: #### 2 4344-4 ####[facility] LABCLIA [id number] [address] [address] [place] Lactate [Moles/Vol] 0.6 mmol/L Normal 0.5-2.2 [facility] Comment on above: Order Comment: Speci men Type: VENOUS BLOOD SPECIMENOrdering Facility: [facility] Address: [address] [place], [place] [address] Performed By: #### 2 4344-4 ####[facility] LABCLIA [id number] [address] [address] [place] Methemoglobin (Bld) [Mass fraction] 1.4 % Normal 0.0-1.5 [facility] Comment on above: Order Comment: Speci men Type: VENOUS BLOOD SPECIMENOrdering Facility: [facility] Address: [address] [place], [place] [address] Performed By: #### 2 4344-4 ####[facility] LABCLIA [id number] [address] [address] [place] Oxygen (BldV) [Partial pressure] 39 mm[Hg] Normal 35-45 [facility] Comment on above: Order Comment: Speci men Type: VENOUS BLOOD SPECIMENOrdering Facility: [facility] Address: [address] [place], [place] [address] Performed By: #### 2 4344-4 ####[facility] LABCLIA [id number] [address] [address] [place] Oxygen adjusted to patient's actual temperature (BldV) [Partial pressure] 37 mmHg Normal 35-45 [facility] Comment on above: Order Comment: Speci men Type: VENOUS BLOOD SPECIMENOrdering Facility: [facility] Address: [address] [place], [place] [address] Performed By: #### 2 4344-4 ####[facility] LABCLIA [id number] [address] [place] [address] [place] Oxygen saturation in Venous blood 64 % Normal 60-85 [facility] Comment on above: Order Comment: Speci men Type: VENOUS BLOOD SPECIMENOrdering Facility: [facility] Address: [address] [place], [place] [address] Performed By: #### 2 4344-4 ####[facility] LABCLIA [id number] [address] [place] [address] [place] Oxyhemoglobin (BldV) [Mass fraction] 62 % Normal 60-85 [facility] Comment on above: Order Comment: Speci men Type: VENOUS BLOOD SPECIMENOrdering Facility: [facility] Address: [address] [place] [address] Performed By: #### 2 4344-4 ####[facility] LABCLIA [id number] [place] [id number] [place] pH (BldV) 7.39 [pH] Normal 7.32-7.42 [facility] Comment on above: Order Comment: Speci men Type: VENOUS BLOOD SPECIMENOrdering Facility: [facility] Address: [address] [place] [address] Performed By: #### 2 4344-4 ####[facility] LABCLIA [id number] [address] [address] [place] pH adjusted to patient's actual temperature (BldV) 7.40 Normal 7.32-7.42 [facility] Comment on above: Order Comment: Speci men Type: VENOUS BLOOD SPECIMENOrdering Facility: [facility] Address: [address] [place], [place] [address] Performed By: #### 2 4344-4 ####[facility] LABCLIA [id number] [address] [address] [place] Potassium [Moles/Vol] 4.0 mmol/L Normal 3.5-5.0 [facility] Comment on above: Order Comment: Speci men Type: VENOUS BLOOD SPECIMENOrdering Facility: [facility] Address: [address] [place] [address] Performed By: #### 2 4344-4 ####[facility] LABCLIA [id number] [place] [id number] [place] Sodium [Moles/Vol] 134 mmol/L Low 136-144 [facility] Comment on above: Order Comment: Speci men Type: VENOUS BLOOD SPECIMENOrdering Facility: [facility] Address: [address] [place] [address] Performed By: #### 2 4344-4 ####[facility] LABCLIA [id number] [place] [address] [place] Base excess Calc (BldV) [Moles/Vol] 7 mmol/L High 0-2 [facility] Comment on above: Order Comment: Speci men Type: VENOUS BLOOD SPECIMENOrdering Facility: [facility] Address: [address] [place] [address] Performed By: #### 2 4344-4 ####[facility] LABCLIA [id number] [place] [address] [place] Body temperature 98.6 [degF] Normal [facility] Comment on above: Order Comment: Speci men Type: VENOUS BLOOD SPECIMENOrdering Facility: [facility] Address: [address] [place] [address] Performed By: #### 2 4344-4 ####[facility] LABCLIA [id number] [place] [id number] [place] Calcium.ionized (Bld) [Mass/Vol] 1.16 mmol/L Normal 1.08-1.30 [facility] Comment on above: Order Comment: Speci men Type: VENOUS BLOOD SPECIMENOrdering Facility: [facility] Address: [address] [place] [address] Performed By: #### 2 4344-4 ####[facility] LABCLIA [id number] [place] [address] [place] Calcium.ionized adjusted to pH 7.4 (BldA) [Moles/Vol] 1.16 mmol/L Normal 1.08-1.30 [facility] Comment on above: Order Comment: Speci men Type: VENOUS BLOOD SPECIMENOrdering Facility: [facility] Address: [address] [place] [address] Performed By: #### 2 4344-4 ####[facility] LABIA [id number] [place] [address] [place] Carboxyhemoglobin (BldV) [Mass fraction] 1.4 % Normal 0.0-2.0 [facility] Comment on above: Order Comment: Speci men Type: VENOUS BLOOD SPECIMENOrdering Facility: [facility] Address: [address] [place] [address] Result Comment: Carb oxyhemoglobin Reference Range for Smokers: 2.0-8.0% Performed By: #### 2 4344-4 ####[facility] LABIA [id number] [place] [address] [place] CO2 (BldV) [Partial pressure] 52 mm[Hg] Normal 42-55 [facility] Comment on above: Order Comment: Speci men Type: VENOUS BLOOD SPECIMENOrdering Facility: [facility] Address: [address] [place] [address] Performed By: #### 2 4344-4 ####[facility] LABIA [id number] [place] [address] [place] Glucose [Mass/Vol] 159 mg/dL High 60-105 [facility] Comment on above: Order Comment: Speci men Type: VENOUS BLOOD SPECIMENOrdering Facility: [facility] Address: [address] [place] [address] Performed By: #### 2 4344-4 ####[facility] LABCLIA [id number] [place] [address] [place] HCO3 (Bld) [Moles/Vol] 32 mmol/L High 24-28 [facility] Comment on above: Order Comment: Speci men Type: VENOUS BLOOD SPECIMENOrdering Facility: [facility] Address: [address] [place] [address] Performed By: #### 2 4344-4 ####[facility] LABCLIA [id number] [place] [address] [place] Hematocrit (Bld) [Volume fraction] 25.9 % Low 39.0-51.0 [facility] Comment on above: Order Comment: Speci men Type: VENOUS BLOOD SPECIMENOrdering Facility: [facility] Address: [address] [place] [address] Performed By: #### 2 4344-4 ####[facility] LABIA [id number] [place] [address] [place] Hemoglobin (Bld) [Mass/Vol] 8.3 g/dL Low 13.0-17.0 [facility] Comment on above: Order Comment: Speci men Type: VENOUS BLOOD SPECIMENOrdering Facility: [facility] Address: [address] [place] [address] Performed By: #### 2 4344-4 ####[facility] LABIA [id number] [place] [address] [place] Lactate [Moles/Vol] 0.6 mmol/L Normal 0.5-2.2 [facility] Comment on above: Order Comment: Speci men Type: VENOUS BLOOD SPECIMENOrdering Facility: [facility] Address: [address] [place] [address] Performed By: #### 2 4344-4 ####[facility] LABIA [id number] [place] [address] [place] LITERS 4 Liters/min Normal [facility] Comment on above: Order Comment: Speci men Type: VENOUS BLOOD SPECIMENOrdering Facility: [facility] Address: [address] [place] [address] Performed By: #### 2 4344-4 ####[facility] LABCLIA [id number] [address] [place] [address] [place] Methemoglobin (Bld) [Mass fraction] 2.2 % High 0.0-1.5 [facility] Comment on above: Order Comment: Speci men Type: VENOUS BLOOD SPECIMENOrdering Facility: [facility] Address: [address] [place], [place] [address] Performed By: #### 2 4344-4 ####[facility] LABCLIA [id number] [address] [place] [address] [place] O2 THERAPY NC = Nasal Cannula Normal [facility] Comment on above: Order Comment: Speci men Type: VENOUS BLOOD SPECIMENOrdering Facility: [facility] Address: [address] [place], [place] [address] Performed By: #### 2 4344-4 ####[facility] LABCLIA [id number] [address] [address] [place] Oxygen (BldV) [Partial pressure] 37 mm[Hg] Normal 35-45 [facility] Comment on above: Order Comment: Speci men Type: VENOUS BLOOD SPECIMENOrdering Facility: [facility] Address: [address] [place], [place] [address] Performed By: #### 2 4344-4 ####[facility] LABCLIA [id number] [address] [address] [place] Oxygen saturation in Venous blood 67 % Normal 60-85 [facility] Comment on above: Order Comment: Speci men Type: VENOUS BLOOD SPECIMENOrdering Facility: [facility] Address: [address] [place] [address] Performed By: #### 2 4344-4 ####[facility] LABCLIA [id number] [address] [address] [place] Oxyhemoglobin (BldV) [Mass fraction] 65 % Normal 60-85 [facility] Comment on above: Order Comment: Speci men Type: VENOUS BLOOD SPECIMENOrdering Facility: [facility] Address: [address] [place] [address] Performed By: #### 2 4344-4 ####[facility] LABIA [id number] [place] [address] [place] pH (BldV) 7.40 [pH] Normal 7.32-7.42 [facility] Comment on above: Order Comment: Speci men Type: VENOUS BLOOD SPECIMENOrdering Facility: [facility] Address: [address] [place] [address] Performed By: #### 2 4344-4 ####[facility] LABIA [id number] [place] [address] [place] Potassium [Moles/Vol] 4.4 mmol/L Normal 3.5-5.0 [facility] Comment on above: Order Comment: Speci men Type: VENOUS BLOOD SPECIMENOrdering Facility: [facility] Address: [address] [place] [address] Performed By: #### 2 4344-4 ####[facility] LABIA [id number] [place] [id number] [place] Sodium [Moles/Vol] 133 mmol/L Low 136-144 [facility] Comment on above: Order Comment: Speci men Type: VENOUS BLOOD SPECIMENOrdering Facility: [facility] Address: [address] [place] [address] Performed By: #### 2 4344-4 ####[facility] LABIA [id number] [place] [id number] [place] Magnesium SerPl-ncon 10-22 Magnesium [Mass/Vol] 2.0 mg/dL Normal 1.7-2.3 [facility] Comment on above: Order Comment: Gini nowak Type: BLOOD SPECIMENOrdering Facility: [facility] Address: [address] [place] [address] Performed By: #### 2 4323-8, 97787-7, 2777-1 ####[facility] LABCLIA [id number] [place] [address] [place] PT panel Coag (PPP)on 2024 INR Coag (PPP) [Relative time] 1.3 {INR} Normal 0.9-1.3 [facility] Comment on above: Order Comment: Gini eliu Type: BLOOD SPECIMENOrdering Facility: [facility] Address: [address] [place] [address] Result Comment: Nettie min K Antagonist (VKA) Therapeutic Range: INR 2 to 3 (Target INR of 2.5)Note: For patients treated with VKA drugs, such as warfarin, the [employer] 2012 Guideline recommends [...] al. Chest 2012, 141:7S-47SNishimsoila RA, et al. [facility] 2017, 70: 252-289 Performed By: #### 3 4528-0 ####[facility] [id number] [place] [id number] [place] PT Coag (PPP) [Time] 14.0 s High 9.7-13.0 [facility] Comment on above: Order Comment: Gini eliu Type: BLOOD SPECIMENOrdering Facility: [facility] Address: [address] [place] [address] Performed By: #### 3 4528-0 ####[facility] LABCLIA [id number] [place] [address] [place] Phosphate SerPl-mCncon 10-22 Phosphate [Mass/Vol] 2.9 mg/dL Normal 2.7-4.8 [facility] Comment on above: Order Comment: Speci men Type: BLOOD SPECIMENOrdering Facility: [facility] Address: [address] [place] [address] Performed By: #### 2 4323-8, 70010-0, 2777-1 ####[facility] LABCLIA [id number] [address] TYPE + SCREENon 10-22-2024 ABO O Normal [facility] Comment on above: Order Comment: Speci men Type: BLOOD SPECIMENOrdering Facility: [facility] Address: [address] [place] [address] Performed By: #### T SCR ####[facility] BLOOD BANKCLIA [id number] [place] [address] [place] Rh Nom (Bld) Negative Normal [facility] Comment on above: Order Comment: Speci men Type: BLOOD SPECIMENOrdering Facility: [facility] Address: [address] [place] [address] Performed By: #### T SCR ####[facility] B[facility] BANKCLIA [id number] [place] [address] [place] TYPE AND SCREEN EXPIRATION 10/25/2024 23:59 Normal [facility] Comment on above: Order Comment: Speci men Type: BLOOD SPECIMENOrdering Facility: [facility] Address: [address] [place] [address] Performed By: #### T SCR ####[facility] BLO[facility] BANKCLIA [id number] [place] [address] [place] XR CHEST 1V FRONTAL PORTon 0 10-22-2024 XR CHEST 1V FRONTAL PORT Normal [facility] ARTERIAL BLOOD GASESon 10-21 Base excess Calc (Bld) [Moles/Vol] 7 mmol/L High 0-2 [facility] Comment on above: Order Comment: Speci men Type: ARTERIAL BLOOD SPECIMENOrdering Facility: [facility] Address: [address] [place] [address] Performed By: #### A LLBG ####[facility] LABCLIA [id number] [place] [address] [place] Calcium.ionized (Bld) [Mass/Vol] 1.14 mmol/L Normal 1.08-1.30 [facility] Comment on above: Order Comment: Speci men Type: ARTERIAL BLOOD SPECIMENOrdering Facility: [facility] Address: [address] [place] [address] Performed By: #### A LLBG ####[facility] LABCLIA [id number] [place] [address] [place] Calcium.ionized adjusted to pH 7.4 (BldA) [Moles/Vol] 1.17 mmol/L Normal 1.08-1.30 [facility] Comment on above: Order Comment: Speci men Type: ARTERIAL BLOOD SPECIMENOrdering Facility: [facility] Address: [address] [place] [address] Performed By: #### A LLBG ####[facility] LABCLIA [id number] [place] [address] [place] Carboxyhemoglobin (BldA) [Mass fraction] 1.6 % Normal 0.0-2.0 [facility] Comment on above: Order Comment: Speci men Type: ARTERIAL BLOOD SPECIMENOrdering Facility: [facility] Address: [address] [place] [address] Result Comment: Carb oxyhemoglobin Reference Range for Smokers: 2.0-8.0% Performed By: #### A LLBG ####[facility] LABCLIA [id number] [address] [place] [address] [place] CO2 (Bld) [Partial pressure] 45 mm Hg Normal 36-46 [facility] Comment on above: Order Comment: Speci men Type: ARTERIAL BLOOD SPECIMENOrdering Facility: [facility] Address: [address] [place] [address] Performed By: #### A LLBG ####[facility] LABCLIA [id number] [address], [facility]95 [place] CO2 adjusted to patient's actual temperature (Bld) [Partial pressure] 44 mmHg Normal 36-46 [facility] Comment on above: Order Comment: Speci men Type: ARTERIAL BLOOD SPECIMENOrdering Facility: [facility] Address: [address] [place] [address] Performed By: #### A LLBG ####[facility] LABCLIA [id number] [place] [address] [place] Glucose [Mass/Vol] 103 mg/dL Normal 60-105 [facility] Comment on above: Order Comment: Speci men Type: ARTERIAL BLOOD SPECIMENOrdering Facility: [facility] Address: [address] [place] [address] Performed By: #### A LLBG ####[facility] LABCLIA [id number] [place] [id number] [place] Hematocrit (Bld) [Volume fraction] 27.9 % Low 39.0-51.0 [facility] Comment on above: Order Comment: Speci men Type: ARTERIAL BLOOD SPECIMENOrdering Facility: [facility] Address: [address] [place], [place] [address] Performed By: #### A LLBG ####[facility] LABCLIA [id number] [address] [address] [place] Hemoglobin (Bld) [Mass/Vol] 9.0 g/dL Low 13.0-17.0 [facility] Comment on above: Order Comment: Speci men Type: ARTERIAL BLOOD SPECIMENOrdering Facility: [facility] Address: [address] [place], [place] [address] Performed By: #### A LLBG ####[facility] LABCLIA [id number] [place] [id number] [place] Lactate [Moles/Vol] 1.4 mmol/L Normal 0.5-2.2 [facility] Comment on above: Order Comment: Speci men Type: ARTERIAL BLOOD SPECIMENOrdering Facility: [facility] Address: [address] [place] [address] Performed By: #### A LLBG ####[facility] LABCLIA [id number] [place] [address] [place] Methemoglobin (Bld) [Mass fraction] 1.3 % Normal 0.0-1.5 [facility] Comment on above: Order Comment: Speci men Type: ARTERIAL BLOOD SPECIMENOrdering Facility: [facility] Address: [address] [place] [address] Performed By: #### A LLBG ####[facility] LABCLIA [id number] [place] [id number] [place] Oxygen (Bld) [Partial pressure] 69 mm Hg Low 85-95 [facility] Comment on above: Order Comment: Speci men Type: ARTERIAL BLOOD SPECIMENOrdering Facility: [facility] Address: [address] [place] [address] Performed By: #### A LLBG ####[facility] LABCLIA [id number] [place] [id number] [place] Oxygen adjusted to patient's actual temperature (Bld) [Partial pressure] 66 mmHg Low 85-95 [facility] Comment on above: Order Comment: Speci men Type: ARTERIAL BLOOD SPECIMENOrdering Facility: [facility] Address: [address] [place], [place] [address] Performed By: #### A LLBG ####[facility] LABCLIA [id number] [place] [id number] [place] Oxyhemoglobin (BldA) [Mass fraction] 92 % Low 95-98 [facility] Comment on above: Order Comment: Speci men Type: ARTERIAL BLOOD SPECIMENOrdering Facility: [facility] Address: [address] [place] [address] Performed By: #### A LLBG ####[facility] LABCLIA [id number] [place] [address] [place] pH (Bld) 7.46 [pH] High 7.35-7.45 [facility] Comment on above: Order Comment: Speci men Type: ARTERIAL BLOOD SPECIMENOrdering Facility: [facility] Address: [address] [place] [address] Performed By: #### A LLBG ####[facility] LABCLIA [id number] [place] [address] [place] pH adjusted to patient's actual temperature (Bld) 7.47 High 7.35-7.45 [facility] Comment on above: Order Comment: Speci men Type: ARTERIAL BLOOD SPECIMENOrdering Facility: [facility] Address: [address] [place] [address] Performed By: #### A LLBG ####[facility] LABCLIA [id number] [place] [address] [place] Potassium [Moles/Vol] 4.6 mmol/L Normal 3.5-5.0 [facility] Comment on above: Order Comment: Speci men Type: ARTERIAL BLOOD SPECIMENOrdering Facility: [facility] Address: [address] [place] [address] Performed By: #### A LLBG ####[facility] LABCLIA [id number] [place] [id number] [place] Sodium [Moles/Vol] 132 mmol/L Low 136-144 [facility] Comment on above: Order Comment: Speci men Type: ARTERIAL BLOOD SPECIMENOrdering Facility: [facility] Address: [address] [place] [address] Performed By: #### A LLBG ####[facility] [id number] [place] [address] [place] Base excess Calc (Bld) [Moles/Vol] 6 mmol/L High 0-2 [facility] Comment on above: Order Comment: Speci men Type: ARTERIAL BLOOD SPECIMENOrdering Facility: [facility] Address: [address] [place] [address] Performed By: #### A LLBG ####[facility] [id number] [place] [address] [place] Calcium.ionized (Bld) [Mass/Vol] 1.14 mmol/L Normal 1.08-1.30 [facility] Comment on above: Order Comment: Speci men Type: ARTERIAL BLOOD SPECIMENOrdering Facility: [facility] Address: [address] [place] [address] Performed By: #### A LLBG ####[facility] [id number] [place] [address] [place] Calcium.ionized adjusted to pH 7.4 (BldA) [Moles/Vol] 1.17 mmol/L Normal 1.08-1.30 [facility] Comment on above: Order Comment: Speci men Type: ARTERIAL BLOOD SPECIMENOrdering Facility: [facility] Address: [address] [place] [address] Performed By: #### A LLBG ####[facility] [id number] [place] [address] [place] Carboxyhemoglobin (BldA) [Mass fraction] 1.0 % Normal 0.0-2.0 [facility] Comment on above: Order Comment: Speci men Type: ARTERIAL BLOOD SPECIMENOrdering Facility: [facility] Address: [address] [place] [address] Result Comment: Carb oxyhemoglobin Reference Range for Smokers: 2.0-8.0% Performed By: #### A LLBG ####[facility] LABCLIA [id number] [place] [address] [place] CO2 (Bld) [Partial pressure] 43 mm Hg Normal 36-46 [facility] Comment on above: Order Comment: Speci men Type: ARTERIAL BLOOD SPECIMENOrdering Facility: [facility] Address: [address] [place] [address] Performed By: #### A LLBG ####[facility] LABCLIA [id number] [address] [place] CO2 adjusted to patient's actual temperature (Bld) [Partial pressure] 42 mmHg Normal 36-46 [facility] Comment on above: Order Comment: Speci men Type: ARTERIAL BLOOD SPECIMENOrdering Facility: [facility] Address: [address] [place] [address] Performed By: #### A LLBG ####[facility] LABCLIA [id number] [place] [address] [place] Glucose [Mass/Vol] 168 mg/dL High 60-105 [facility] Comment on above: Order Comment: Speci men Type: ARTERIAL BLOOD SPECIMENOrdering Facility: [facility] Address: [address] [place] [address] Performed By: #### A LLBG ####[facility] LABCLIA [id number] [place] [id number] [place] HCO3 (Bld) [Moles/Vol] 30 mmol/L High 22-26 [facility] Comment on above: Order Comment: Speci men Type: ARTERIAL BLOOD SPECIMENOrdering Facility: [facility] Address: [address] [place] [address] Performed By: #### A LLBG ####[facility] LABCLIA [id number] [place] [address] [place] Hematocrit (Bld) [Volume fraction] 30.7 % Low 39.0-51.0 [facility] Comment on above: Order Comment: Speci men Type: ARTERIAL BLOOD SPECIMENOrdering Facility: [facility] Address: [address] [place] [address] Performed By: #### A LLBG ####[facility] LABIA [id number] [place] [address] [place] Hemoglobin (Bld) [Mass/Vol] 9.9 g/dL Low 13.0-17.0 [facility] Comment on above: Order Comment: Speci men Type: ARTERIAL BLOOD SPECIMENOrdering Facility: [facility] Address: [address] [place] [address] Performed By: #### A LLBG ####[facility] LABIA [id number] [place] [address] [place] Lactate [Moles/Vol] 0.8 mmol/L Normal 0.5-2.2 [facility] Comment on above: Order Comment: Speci men Type: ARTERIAL BLOOD SPECIMENOrdering Facility: [facility] Address: [address] [place] [address] Performed By: #### A LLBG ####[facility] LABIA [id number] [place] [address] [place] Methemoglobin (Bld) [Mass fraction] 1.9 % High 0.0-1.5 [facility] Comment on above: Order Comment: Speci men Type: ARTERIAL BLOOD SPECIMENOrdering Facility: [facility] Address: [address] [place] [address] Performed By: #### A LLBG ####[facility] LABCLIA [id number] [place] [id number] [place] Oxygen (Bld) [Partial pressure] 99 mm Hg High 85-95 [facility] Comment on above: Order Comment: Speci men Type: ARTERIAL BLOOD SPECIMENOrdering Facility: [facility] Address: [address] [place] [address] Performed By: #### A LLBG ####[facility] LABCLIA [id number] [address] [address] [place] Oxygen adjusted to patient's actual temperature (Bld) [Partial pressure] 96 mmHg High 85-95 [facility] Comment on above: Order Comment: Speci men Type: ARTERIAL BLOOD SPECIMENOrdering Facility: [facility] Address: [address] [place] [address] Performed By: #### A LLBG ####[facility] LABCLIA [id number] [address] [address] [place] Oxyhemoglobin (BldA) [Mass fraction] 95 % Normal 95-98 [facility] Comment on above: Order Comment: Speci men Type: ARTERIAL BLOOD SPECIMENOrdering Facility: [facility] Address: [address] [place] [address] Performed By: #### A LLBG ####[facility] LABCLIA [id number] [address] [address] [place] pH (Bld) 7.46 [pH] High 7.35-7.45 [facility] Comment on above: Order Comment: Speci men Type: ARTERIAL BLOOD SPECIMENOrdering Facility: [facility] Address: [address] [place] [address] Performed By: #### A LLBG ####[facility] LABCLIA [id number] [address] [place] [address] [place] pH adjusted to patient's actual temperature (Bld) 7.47 High 7.35-7.45 [facility] Comment on above: Order Comment: Speci men Type: ARTERIAL BLOOD SPECIMENOrdering Facility: [facility] Address: [address] [place] [address] Performed By: #### A LLBG ####[facility] LABCLIA [id number] [address] [place] [address] [place] Potassium [Moles/Vol] 4.5 mmol/L Normal 3.5-5.0 [facility] Comment on above: Order Comment: Speci men Type: ARTERIAL BLOOD SPECIMENOrdering Facility: [facility] Address: [address] [place] [address] Performed By: #### A LLBG ####[facility] LABCLIA [id number] [place] [address] [place] Sodium [Moles/Vol] 131 mmol/L Low 136-144 [facility] Comment on above: Order Comment: Speci men Type: ARTERIAL BLOOD SPECIMENOrdering Facility: [facility] Address: [address] [place] [address] Performed By: #### A LLBG ####[facility] LABCLIA [id number] [place] [address] [place] Base excess Calc (Bld) [Moles/Vol] 5 mmol/L High 0-2 [facility] Comment on above: Order Comment: Speci men Type: ARTERIAL BLOOD SPECIMENOrdering Facility: [facility] Address: [address] [place] [address] Performed By: #### A LLBG ####[facility] LABCLIA [id number] [place] [address] [place] Body temperature 98.6 [degF] Normal [facility] Comment on above: Order Comment: Speci men Type: ARTERIAL BLOOD SPECIMENOrdering Facility: [facility] Address: [address] [place] [address] Performed By: #### A LLBG ####[facility] LABCLIA [id number] [address] [place] Order Comment: Speci men Type: VENOUS BLOOD SPECIMENOrdering Facility: [facility] Address: [address] [place] [address] Performed By: #### 2 4344-4 ####[facility] LABCLIA [id number] [place] [address] [place] Calcium.ionized (Bld) [Mass/Vol] 1.16 mmol/L Normal 1.08-1.30 [facility] Comment on above: Order Comment: Speci men Type: ARTERIAL BLOOD SPECIMENOrdering Facility: [facility] Address: [address] [place] [address] Performed By: #### A LLBG ####[facility] LABCLIA [id number] [place] [address] [place] Calcium.ionized adjusted to pH 7.4 (BldA) [Moles/Vol] 1.19 mmol/L Normal 1.08-1.30 [facility] Comment on above: Order Comment: Speci men Type: ARTERIAL BLOOD SPECIMENOrdering Facility: [facility] Address: [address] [place] [address] Performed By: #### A LLBG ####[facility] LABIA [id number] [place] [address] [place] Carboxyhemoglobin (BldA) [Mass fraction] 1.2 % Normal 0.0-2.0 [facility] Comment on above: Order Comment: Speci men Type: ARTERIAL BLOOD SPECIMENOrdering Facility: [facility] Address: [address] [place] [address] Result Comment: Carb oxyhemoglobin Reference Range for Smokers: 2.0-8.0% Performed By: #### A LLBG ####[facility] LABCLIA [id number] [place] [address] [place] CO2 (Bld) [Partial pressure] 44 mm Hg Normal 36-46 [facility] Comment on above: Order Comment: Speci men Type: ARTERIAL BLOOD SPECIMENOrdering Facility: [facility] Address: [address] [place] [address] Performed By: #### A LLBG ####[facility] LABCLIA [id number] [place] [address] [place] Glucose [Mass/Vol] 139 mg/dL High 60-105 [facility] Comment on above: Order Comment: Speci men Type: ARTERIAL BLOOD SPECIMENOrdering Facility: [facility] Address: [address] [place] [address] Performed By: #### A LLBG ####[facility] LABCLIA [id number] [place] [address] [place] HCO3 (Bld) [Moles/Vol] 30 mmol/L High 22-26 [facility] Comment on above: Order Comment: Speci men Type: ARTERIAL BLOOD SPECIMENOrdering Facility: [facility] Address: [address] [place] [address] Performed By: #### A LLBG ####[facility] LABCLIA [id number] [place] [address] [place] Hematocrit (Bld) [Volume fraction] 29.4 % Low 39.0-51.0 [facility] Comment on above: Order Comment: Speci men Type: ARTERIAL BLOOD SPECIMENOrdering Facility: [facility] Address: [address] [place] [address] Performed By: #### A LLBG ####[facility] LABCLIA [id number] [place] [address] [place] Hemoglobin (Bld) [Mass/Vol] 9.5 g/dL Low 13.0-17.0 [facility] Comment on above: Order Comment: Speci men Type: ARTERIAL BLOOD SPECIMENOrdering Facility: [facility] Address: [address] [place] [address] Performed By: #### A LLBG ####[facility] LABCLIA [id number] [place] [address] [place] Lactate [Moles/Vol] 0.7 mmol/L Normal 0.5-2.2 [facility] Comment on above: Order Comment: Speci men Type: ARTERIAL BLOOD SPECIMENOrdering Facility: [facility] Address: [address] [place] [address] Performed By: #### A LLBG ####[facility] LABCLIA [id number] [address] [address] [place] Order Comment: Speci men Type: VENOUS BLOOD SPECIMENOrdering Facility: [facility] Address: [address] [place], [place] [address] Performed By: #### 2 4344-4 ####[facility] LABCLIA [id number] [address] [address] [place] LITERS 3 Liters/min Normal [facility] Comment on above: Order Comment: Speci men Type: ARTERIAL BLOOD SPECIMENOrdering Facility: [facility] Address: [address] [place], [place] [address] Performed By: #### A LLBG ####[facility] LABCLIA [id number] [place] [id number] [place] Order Comment: Speci men Type: VENOUS BLOOD SPECIMENOrdering Facility: [facility] Address: [address] [place], [place] [address] Performed By: #### 2 4344-4 ####[facility] LABCLIA [id number] [address] [address] [place] Methemoglobin (Bld) [Mass fraction] 0.7 % Normal 0.0-1.5 [facility] Comment on above: Order Comment: Speci men Type: ARTERIAL BLOOD SPECIMENOrdering Facility: [facility] Address: [address] [place], [place] [address] Performed By: #### A LLBG ####[facility] LABCLIA [id number] [place] [id number] [place] O2 THERAPY NC = Nasal Cannula Normal [facility] Comment on above: Order Comment: Speci men Type: ARTERIAL BLOOD SPECIMENOrdering Facility: [facility] Address: [address] [place], [place] [address] Performed By: #### A LLBG ####[facility] LABCLIA [id number] [place] [id number] [place] Order Comment: Speci men Type: VENOUS BLOOD SPECIMENOrdering Facility: [facility] Address: [address] [place] [address] Performed By: #### 2 4344-4 ####[facility] LABCLIA [id number] [place] [id number] [place] Oxygen (Bld) [Partial pressure] 99 mm Hg High 85-95 [facility] Comment on above: Order Comment: Speci men Type: ARTERIAL BLOOD SPECIMENOrdering Facility: [facility] Address: [address] [place] [address] Performed By: #### A LLBG ####[facility] LABCLIA [id number] [place] [address] [place] Oxyhemoglobin (BldA) [Mass fraction] 96 % Normal 95-98 [facility] Comment on above: Order Comment: Speci men Type: ARTERIAL BLOOD SPECIMENOrdering Facility: [facility] Address: [address] [place] [address] Performed By: #### A LLBG ####[facility] LABCLIA [id number] [place] [id number] [place] pH (Bld) 7.45 [pH] Normal 7.35-7.45 [facility] Comment on above: Order Comment: Speci men Type: ARTERIAL BLOOD SPECIMENOrdering Facility: [facility] Address: [address] [place] [address] Performed By: #### A LLBG ####[facility] LABCLIA [id number] [place] [address] [place] Potassium [Moles/Vol] 4.7 mmol/L Normal 3.5-5.0 [facility] Comment on above: Order Comment: Speci men Type: ARTERIAL BLOOD SPECIMENOrdering Facility: [facility] Address: [address] [place] [address] Performed By: #### A LLBG ####[facility] LABCLIA [id number] [place] [address] [place] Sodium [Moles/Vol] 132 mmol/L Low 136-144 [facility] Comment on above: Order Comment: Speci men Type: ARTERIAL BLOOD SPECIMENOrdering Facility: [facility] Address: [address] [place] [address] Performed By: #### A LLBG ####[facility] LABCLIA [id number] [place] [address] [place] Base excess Calc (Bld) [Moles/Vol] 3 mmol/L High 0-2 [facility] Comment on above: Order Comment: Speci men Type: ARTERIAL BLOOD SPECIMENOrdering Facility: [facility] Address: [address] [place] [address] Performed By: #### A LLBG ####[facility] LABCLIA [id number] [place] [address] [place] Body temperature 97.88 [degF] Normal [facility] Comment on above: Order Comment: Speci men Type: ARTERIAL BLOOD SPECIMENOrdering Facility: [facility] Address: [address] [place] [address] Performed By: #### A LLBG ####[facility] LABCLIA [id number] [place] [address] [place] Order Comment: Speci men Type: VENOUS BLOOD SPECIMENOrdering Facility: [facility] Address: [address] [place] [address] Performed By: #### 2 4344-4 ####[facility] LABCLIA [id number] [place] [address] [place] Calcium.ionized (Bld) [Mass/Vol] 1.17 mmol/L Normal 1.08-1.30 [facility] Comment on above: Order Comment: Speci men Type: ARTERIAL BLOOD SPECIMENOrdering Facility: [facility] Address: [address] [place] [address] Performed By: #### A LLBG ####[facility] LABCLIA [id number] [place] [address] [place] Calcium.ionized adjusted to pH 7.4 (BldA) [Moles/Vol] 1.16 mmol/L Normal 1.08-1.30 [facility] Comment on above: Order Comment: Speci men Type: ARTERIAL BLOOD SPECIMENOrdering Facility: [facility] Address: [address] [place] [address] Performed By: #### A LLBG ####[facility] LABCLIA [id number] [place] [address] [place] Carboxyhemoglobin (BldA) [Mass fraction] 1.4 % Normal 0.0-2.0 [facility] Comment on above: Order Comment: Speci men Type: ARTERIAL BLOOD SPECIMENOrdering Facility: [facility] Address: [address] [place] [address] Result Comment: Carb oxyhemoglobin Reference Range for Smokers: 2.0-8.0% Performed By: #### A LLBG ####[facility] LABCLIA [id number] [place] [id number] [place] CO2 (Bld) [Partial pressure] 47 mm Hg High 36-46 [facility] Comment on above: Order Comment: Speci men Type: ARTERIAL BLOOD SPECIMENOrdering Facility: [facility] Address: [address] [place] [address] Performed By: #### A LLBG ####[facility] LABCLIA [id number] [place] [id number] [place] CO2 adjusted to patient's actual temperature (Bld) [Partial pressure] 46 mmHg Normal 36-46 [facility] Comment on above: Order Comment: Speci men Type: ARTERIAL BLOOD SPECIMENOrdering Facility: [facility] Address: [address] [place] [address] Performed By: #### A LLBG ####[facility] LABCLIA [id number] [address] [place] [address] [place] Glucose [Mass/Vol] 198 mg/dL High 60-105 [facility] Comment on above: Order Comment: Speci men Type: ARTERIAL BLOOD SPECIMENOrdering Facility: [facility] Address: [address] [place] [address] Performed By: #### A LLBG ####[facility] LABCLIA [id number] [address], [facility]95 [place] HCO3 (Bld) [Moles/Vol] 28 mmol/L High 22-26 [facility] Comment on above: Order Comment: Speci men Type: ARTERIAL BLOOD SPECIMENOrdering Facility: [facility] Address: [address] [place] [address] Performed By: #### A LLBG ####[facility] LABCLIA [id number] [address], [facility]95 [place] Hematocrit (Bld) [Volume fraction] 26.5 % Low 39.0-51.0 [facility] Comment on above: Order Comment: Speci men Type: ARTERIAL BLOOD SPECIMENOrdering Facility: [facility] Address: [address] [place] [address] Performed By: #### A LLBG ####[facility] LABCLIA [id number] [address] [place] [address] [place] Order Comment: Speci men Type: VENOUS BLOOD SPECIMENOrdering Facility: [facility] Address: [address] [place] [address] Performed By: #### 2 4344-4 ####[facility] LABCLIA [id number] [address] [place] [address] [place] Hemoglobin (Bld) [Mass/Vol] 8.5 g/dL Low 13.0-17.0 [facility] Comment on above: Order Comment: Speci men Type: ARTERIAL BLOOD SPECIMENOrdering Facility: [facility] Address: [address] [place] [address] Performed By: #### A LLBG ####[facility] LABCLIA [id number] [address] [place] [address] [place] Order Comment: Speci men Type: VENOUS BLOOD SPECIMENOrdering Facility: [facility] Address: [address] [place] [address] Performed By: #### 2 4344-4 ####[facility] LABCLIA [id number] [address], [place] [address] [place] Lactate [Moles/Vol] 1.6 mmol/L Normal 0.5-2.2 [facility] Comment on above: Order Comment: Speci men Type: ARTERIAL BLOOD SPECIMENOrdering Facility: [facility] Address: [address] [place] [address] Performed By: #### A LLBG ####[facility] LABCLIA [id number] [address], [place] [address] [place] LITERS 3 Liters/min Normal [facility] Comment on above: Order Comment: Speci men Type: ARTERIAL BLOOD SPECIMENOrdering Facility: [facility] Address: [address] [place] [address] Performed By: #### A LLBG ####[facility] LABCLIA [id number] [address] [place] [address] [place] Order Comment: Speci men Type: VENOUS BLOOD SPECIMENOrdering Facility: [facility] Address: [address] [place] [address] Performed By: #### 2 4344-4 ####[facility] LABCLIA [id number] [address] [place] [address] [place] Methemoglobin (Bld) [Mass fraction] 1.6 % High 0.0-1.5 [facility] Comment on above: Order Comment: Speci men Type: ARTERIAL BLOOD SPECIMENOrdering Facility: [facility] Address: [address] [place] [address] Performed By: #### A LLBG ####[facility] LABCLIA [id number] [address] [place] [address] [place] O2 THERAPY NC = Nasal Cannula Normal [facility] Comment on above: Order Comment: Speci men Type: ARTERIAL BLOOD SPECIMENOrdering Facility: [facility] Address: [address] [place] [id number] Performed By: #### A LLBG ####[facility] LABCLIA [id number] [address] [address] [place] Order Comment: Speci men Type: VENOUS BLOOD SPECIMENOrdering Facility: [facility] Address: [address] [place], [place] [address] Performed By: #### 2 4344-4 ####[facility] LABCLIA [id number] [address] [place] [address] [place] Oxygen (Bld) [Partial pressure] 111 mm Hg High 85-95 [facility] Comment on above: Order Comment: Speci men Type: ARTERIAL BLOOD SPECIMENOrdering Facility: [facility] Address: [address] [place] [address] Performed By: #### A LLBG ####[facility] LABCLIA [id number] [address] [place] [address] [place] Oxygen adjusted to patient's actual temperature (Bld) [Partial pressure] 108 mmHg High 85-95 [facility] Comment on above: Order Comment: Speci men Type: ARTERIAL BLOOD SPECIMENOrdering Facility: [facility] Address: [address] [place] [address] Performed By: #### A LLBG ####[facility] LABCLIA [id number] [address] [place] [address] [place] Oxyhemoglobin (BldA) [Mass fraction] 97 % Normal 95-98 [facility] Comment on above: Order Comment: Speci men Type: ARTERIAL BLOOD SPECIMENOrdering Facility: [facility] Address: [address] [place] [address] Performed By: #### A LLBG ####[facility] LABCLIA [id number] [address] [address] [place] pH (Bld) 7.39 [pH] Normal 7.35-7.45 [facility] Comment on above: Order Comment: Speci men Type: ARTERIAL BLOOD SPECIMENOrdering Facility: [facility] Address: [address] [place] [address] Performed By: #### A LLBG ####[facility] LABCLIA [id number] [address] [place] pH adjusted to patient's actual temperature (Bld) 7.40 Normal 7.35-7.45 [facility] Comment on above: Order Comment: Speci men Type: ARTERIAL BLOOD SPECIMENOrdering Facility: [facility] Address: [address] [place] [address] Performed By: #### A LLBG ####[facility] LABIA [id number] [place] [address] [place] Potassium [Moles/Vol] 4.6 mmol/L Normal 3.5-5.0 [facility] Comment on above: Order Comment: Speci men Type: ARTERIAL BLOOD SPECIMENOrdering Facility: [facility] Address: [address] [place] [address] Performed By: #### A LLBG ####[facility] LABIA [id number] [place] [id number] [place] CBC panel Auto (Bld)on 10-21 Erythrocyte distribution width (RBC) [Ratio] 17.3 % High 11.5-15.0 [facility] Comment on above: Order Comment: Speci men Type: BLOOD SPECIMENOrdering Facility: [facility] Address: [address] [place] [address] Performed By: #### 5 8410-2 ####[facility] LABCLIA [id number] [place] [address] [place] Hematocrit (Bld) [Volume fraction] 27.1 % Low 39.0-51.0 [facility] Comment on above: Order Comment: Speci men Type: BLOOD SPECIMENOrdering Facility: [facility] Address: [address] [place] [address] Performed By: #### 5 8410-2 ####[facility] LABIA [id number] [place] [address] [place] Hemoglobin (Bld) [Mass/Vol] 8.7 g/dL Low 13.0-17.0 [facility] Comment on above: Order Comment: Speci men Type: BLOOD SPECIMENOrdering Facility: [facility] Address: [address] [place] [address] Performed By: #### 5 8410-2 ####[facility] LABIA [id number] [place] [address] [place] MCH (RBC) [Entitic mass] 31.8 pg Normal 26.0-34.0 [facility] Comment on above: Order Comment: Speci men Type: BLOOD SPECIMENOrdering Facility: [facility] Address: [address] [place] [address] Performed By: #### 5 8410-2 ####[facility] LABIA [id number] [place] [address] [place] MCHC (RBC) [Mass/Vol] 32.1 g/dL Normal 30.5-36.0 [facility] Comment on above: Order Comment: Speci men Type: BLOOD SPECIMENOrdering Facility: [facility] Address: [address] [place] [address] Performed By: #### 5 8410-2 ####[facility] LABCLIA [id number] [place] [address] [place] MCV (RBC) [Entitic vol] 98.9 fL Normal 80.0-100.0 [facility] Comment on above: Order Comment: Speci men Type: BLOOD SPECIMENOrdering Facility: [facility] Address: [address] [place] [address] Performed By: #### 5 8410-2 ####[facility] LABIA [id number] [place] [address] [place] Nucleated RBC (Bld) [#/Vol] 10*3/uL Normal <0.01 [facility] Comment on above: Order Comment: Speci men Type: BLOOD SPECIMENOrdering Facility: [facility] Address: [address] [place] [address] Performed By: #### 5 8410-2 ####[facility] LABIA [id number] [place] [address] [place] Platelet mean volume (Bld) [Entitic vol] 12.0 fL Normal 9.0-12.7 [facility] Comment on above: Order Comment: Speci men Type: BLOOD SPECIMENOrdering Facility: [facility] Address: [address] [place] [address] Performed By: #### 5 8410-2 ####[facility] LABIA [id number] [place] [address] [place] Platelets (Bld) [#/Vol] 114 10*3/uL Low 150-400 [facility] Comment on above: Order Comment: Speci men Type: BLOOD SPECIMENOrdering Facility: [facility] Address: [address] [place] [address] Performed By: #### 5 8410-2 ####[facility] LABCLIA [id number] [place] [address] [place] RBC (Bld) [#/Vol] 2.74 10*6/uL Low 4.20-6.00 [facility] Comment on above: Order Comment: Speci men Type: BLOOD SPECIMENOrdering Facility: [facility] Address: [address] [place] [address] Performed By: #### 5 8410-2 ####[facility] LABCLIA [id number] [address] [address] [place] WBC (Bld) [#/Vol] 4.74 10*3/uL Normal 3.70-11.00 [facility] Comment on above: Order Comment: Speci men Type: BLOOD SPECIMENOrdering Facility: [facility] Address: [address] [place] [address] Performed By: #### 5 8410-2 ####[facility] LABCLIA [id number] [place] [address] [place] Comp Metab 2000 Pnl SerPlon 10-21-2024 Sodium [Moles/Vol] 133 mmol/L Low 136-144 [facility] Comment on above: Order Comment: Speci men Type: BLOOD SPECIMENOrdering Facility: [facility] Address: [address] [place] [address] Performed By: #### 2 4323-8, 56682-7, 2777-1 ####[facility] LABCLIA [id number] [place] [address] [place] Order Comment: Speci men Type: ARTERIAL BLOOD SPECIMENOrdering Facility: [facility] Address: [address] [place] [address] Performed By: #### A LLBG ####[facility] LABCLIA [id number] [place] [id number] [place] Comprehensive metabolic 2000 panelon 10-21-2024 Albumin [Mass/Vol] 2.6 g/dL Low 3.9-4.9 [facility] Comment on above: Order Comment: Speci men Type: BLOOD SPECIMENOrdering Facility: [facility] Address: [address] [place] [address] Performed By: #### 2 4323-8, 88144-6, 2776- ####[facility] LABCLIA [id number] [address] [address] [place] ALP [Catalytic activity/Vol] 99 U/L Normal 38-113 [facility] Comment on above: Order Comment: Speci men Type: BLOOD SPECIMENOrdering Facility: [facility] Address: [address] [place] [address] Performed By: #### 2 4323-8, , 2776-02 ####[facility] LABCLIA [id number] [place] [address] [place] ALT [Catalytic activity/Vol] 12 U/L Normal 10-54 [facility] Comment on above: Order Comment: Speci men Type: BLOOD SPECIMENOrdering Facility: [facility] Address: [address] [place] [address] Performed By: #### 2 4323-8, , 2776-02 ####[facility] LABCLIA [id number] [place] [id number] [place] Anion gap [Moles/Vol] 8 mmol/L Normal 8-15 [facility] Comment on above: Order Comment: Speci men Type: BLOOD SPECIMENOrdering Facility: [facility] Address: [address] [place], [place] [address] Performed By: #### 2 4323-8, , 2776-02 ####[facility] LABCLIA [id number] [address] [address] [place] AST [Catalytic activity/Vol] 23 U/L Normal 14-40 [facility] Comment on above: Order Comment: Speci men Type: BLOOD SPECIMENOrdering Facility: [facility] Address: [address] [place], [place] [address] Performed By: #### 2 4323-8, 04798-6, 2776-02 ####[facility] LABCLIA [id number] [address] [address] [place] Bilirubin [Mass/Vol] 0.2 mg/dL Normal 0.2-1.3 [facility] Comment on above: Order Comment: Speci men Type: BLOOD SPECIMENOrdering Facility: [facility] Address: [address] [place], [place] [address] Performed By: #### 2 4323-8, , 2776-02 ####[facility] LABCLIA [id number] [address] [address] [place] Calcium [Mass/Vol] 8.1 mg/dL Low 8.5-10.2 [facility] Comment on above: Order Comment: Speci men Type: BLOOD SPECIMENOrdering Facility: [facility] Address: [address] [place], [place] [address] Performed By: #### 2 4323-8, , 2776-02 ####[facility] LABCLIA [id number] [place] [id number] [place] Chloride [Moles/Vol] 98 mmol/L Normal 98-107 [facility] Comment on above: Order Comment: Speci men Type: BLOOD SPECIMENOrdering Facility: [facility] Address: [address] [place], [place] [address] Performed By: #### 2 4323-8, , 2776-02 ####[facility] LABCLIA [id number] [address] [address] [place] CO2 [Moles/Vol] 27 mmol/L Normal 22-30 [facility] Comment on above: Order Comment: Speci men Type: BLOOD SPECIMENOrdering Facility: [facility] Address: [address] [place], [place] [address] Performed By: #### 2 4323-8, , 2776-02 ####[facility] LABCLIA [id number] [address] [address] [place] Creatinine [Mass/Vol] 1.45 mg/dL High 0.73-1.22 [facility] Comment on above: Order Comment: Gini nowak Type: BLOOD SPECIMENOrdering Facility: [facility] Address: [address] [place] [id number] Performed By: #### 2 4323-8, 88676-6, 2776-02 ####[facility] LABIA [id number] [place] [id number] [place] eGFRcr SerPlBld CKD-EPI 2020 54 mL/min/1.73m??? Low >=60 [facility] Comment on above: Order Comment: Gini nowak Type: BLOOD SPECIMENOrdering Facility: [facility] Address: [address] [place] [address] Result Comment: Gurwinder mated Glomerular Filtration Rate [...] Performed By: #### 2 4323-8, , 2776-02 ####[facility] LABIA [id number] [address] [address] [place] Glucose [Mass/Vol] 193 mg/dL High 74-99 [facility] Comment on above: Order Comment: Gini nowak Type: BLOOD SPECIMENOrdering Facility: [facility] Address: [address] [place] [address] Result Comment: The [place] [employer] (ADA) provides guidance for cutoff [...] Standards of Medical Care in Diabetes 2016, [place] [employer]. Diabetes Care. 2016.39(Suppl 1). Performed By: #### 2 4323-8, 92447-0, 2776- ####[facility] LABCLIA [id number] [place] [id number] [place] Potassium [Moles/Vol] 4.8 mmol/L Normal 3.7-5.1 [facility] Comment on above: Order Comment: Speci men Type: BLOOD SPECIMENOrdering Facility: [facility] Address: [address] [place] [address] Performed By: #### 2 4323-8, , 2776-02 ####[facility] LABCLIA [id number] [place] [id number] [place] Protein [Mass/Vol] 5.0 g/dL Low 6.3-8.0 [facility] Comment on above: Order Comment: Speci men Type: BLOOD SPECIMENOrdering Facility: [facility] Address: [address] [place] [address] Performed By: #### 2 4323-8, , 2776-02 ####[facility] LABCLIA [id number] [place] [id number] [place] Urea nitrogen [Mass/Vol] 22 mg/dL Normal 9-24 [facility] Comment on above: Order Comment: Speci men Type: BLOOD SPECIMENOrdering Facility: [facility] Address: [address] [place] [address] Performed By: #### 2 4323-8, , 2776-02 ####[facility] LABCLIA [id number] [address] [address] [place] Fact Xa PPP-aCncon 09-13-202 5 Coagulation factor X activated act Coag Qn (PPP) 0.53 IU/mL High <0.10 [facility] Comment on above: Order Comment: Speci men Type: BLOOD SPECIMENOrdering Facility: [facility] Address: [address] [place] [address] Result Comment: The recommended therapeutic range for treatment of venous and arterial thrombosis with intravenous unfractionated heparin is an anti Xa activity level of 0.3 to 0.7 IU/mL. In patients with concomitant therapy with thrombolytic agents and/or platelet glycoprotein IIb/IIIa antagonists, the recommended therapeutic range is an anti Xa activity level of 0.2 to 0.5 IU/mL. Performed By: #### 3 217-7 ####[facility] LABIA [id number] [place] [address] [place] Gas + CO Pnl BldVon 10-22-19 25 Body temperature 97.52 [degF] Normal [facility] Comment on above: Order Comment: Speci men Type: VENOUS BLOOD SPECIMENOrdering Facility: [facility] Address: [address] [place] [address] Performed By: #### 2 4344-4 ####[facility] LABIA [id number] [place] [address] [place] Order Comment: Speci men Type: ARTERIAL BLOOD SPECIMENOrdering Facility: [facility] Address: [address] [place] [address] Performed By: #### A LLBG ####[facility] LABIA [id number] [place] [address] [place] HCO3 (Bld) [Moles/Vol] 31 mmol/L High 22-26 Cl [facility] Comment on above: Order Comment: Speci men Type: VENOUS BLOOD SPECIMENOrdering Facility: [facility] Address: [address] [place] [address] Performed By: #### 2 4344-4 ####[facility] LABIA [id number] [id number] [address] [place] Order Comment: Speci men Type: ARTERIAL BLOOD SPECIMENOrdering Facility: [facility] Address: [address] [place] [address] Performed By: #### A LLBG ####[facility] LABCLIA [id number] [address] [place] [address] [place] LITERS 3 Liters/min Normal [facility] Comment on above: Order Comment: Speci men Type: VENOUS BLOOD SPECIMENOrdering Facility: [facility] Address: [address] [place] [address] Performed By: #### 2 4344-4 ####[facility] LABCLIA [id number] [address] [place] [address] [place] Order Comment: Speci men Type: ARTERIAL BLOOD SPECIMENOrdering Facility: [facility] Address: [address] [place] [address] Performed By: #### A LLBG ####[facility] LABCLIA [id number] [address] [place] [address] [place] O2 THERAPY NC = Nasal Cannula Normal [facility] Comment on above: Order Comment: Speci men Type: VENOUS BLOOD SPECIMENOrdering Facility: [facility] Address: [address] [place] [address] Performed By: #### 2 4344-4 ####[facility] LABCLIA [id number] [address] [place] [address] [place] Order Comment: Speci men Type: ARTERIAL BLOOD SPECIMENOrdering Facility: [facility] Address: [address] [place] [address] Performed By: #### A LLBG ####[facility] LABCLIA [id number] [address] [place] [address] [place] Body temperature 97.52 [degF] Normal [facility] Comment on above: Order Comment: Speci men Type: VENOUS BLOOD SPECIMENOrdering Facility: [facility] Address: [address] [place] [address] Performed By: #### 2 4344-4 ####[facility] LABCLIA [id number] [address] [place] [address] [place] Order Comment: Speci men Type: ARTERIAL BLOOD SPECIMENOrdering Facility: [facility] Address: [address] [place] [address] Performed By: #### A LLBG ####[facility] LABCLIA [id number] [address] [place] [address] [place] LITERS 3 Liters/min Normal [facility] Comment on above: Order Comment: Speci men Type: VENOUS BLOOD SPECIMENOrdering Facility: [facility] Address: [address] [place], [place] [address] Performed By: #### 2 4344-4 ####[facility] LABCLIA [id number] [address] [place] [address] [place] Order Comment: Speci men Type: ARTERIAL BLOOD SPECIMENOrdering Facility: [facility] Address: [address] [place] [id number] Performed By: #### A LLBG ####[facility] LABCLIA [id number] [address] [place] [address] [place] O2 THERAPY NC = Nasal Cannula Normal [facility] Comment on above: Order Comment: Speci men Type: VENOUS BLOOD SPECIMENOrdering Facility: [facility] Address: [address] [place] [address] Performed By: #### 2 4344-4 ####[facility] LABCLIA [id number] [address] [place] [address] [place] Order Comment: Speci men Type: ARTERIAL BLOOD SPECIMENOrdering Facility: [facility] Address: [address] [place] [address] Performed By: #### A LLBG ####[facility] LABCLIA [id number] [id number] [address] [place] Gas and Carbon monoxide pane l (BldV)on 10-21-2024 Base excess Calc (BldV) [Moles/Vol] 5 mmol/L High 0-2 [facility] Comment on above: Order Comment: Speci men Type: VENOUS BLOOD SPECIMENOrdering Facility: [facility] Address: [address] [place] [address] Performed By: #### 2 4344-4 ####[facility] LABIA [id number] [address] [place] Body temperature 98.6 [degF] Normal [facility] Comment on above: Order Comment: Speci men Type: VENOUS BLOOD SPECIMENOrdering Facility: [facility] Address: [address] [place] [address] Performed By: #### 2 4344-4 ####[facility] LABIA [id number] [address] [place] Calcium.ionized (Bld) [Mass/Vol] 1.07 mmol/L Low 1.08-1.30 [facility] Comment on above: Order Comment: Speci men Type: VENOUS BLOOD SPECIMENOrdering Facility: [facility] Address: [address] [place] [address] Performed By: #### 2 4344-4 ####[facility] [id number] [address] [place] Calcium.ionized adjusted to pH 7.4 (BldA) [Moles/Vol] 1.08 mmol/L Normal 1.08-1.30 [facility] Comment on above: Order Comment: Speci men Type: VENOUS BLOOD SPECIMENOrdering Facility: [facility] Address: [address] [place] [address] Performed By: #### 2 4344-4 ####[facility] LABIA [id number] [address] [place] Carboxyhemoglobin (BldV) [Mass fraction] 1.0 % Normal 0.0-2.0 [facility] Comment on above: Order Comment: Speci men Type: VENOUS BLOOD SPECIMENOrdering Facility: [facility] Address: [address] [place] [address] Result Comment: Carb oxyhemoglobin Reference Range for Smokers: 2.0-8.0% Performed By: #### 2 4344-4 ####[facility] LABCLIA [id number] [place] [address] [place] CO2 (BldV) [Partial pressure] 48 mm[Hg] Normal 42-55 [facility] Comment on above: Order Comment: Speci men Type: VENOUS BLOOD SPECIMENOrdering Facility: [facility] Address: [address] [place] [address] Performed By: #### 2 4344-4 ####[facility] LABCLIA [id number] [place] [address] [place] Glucose [Mass/Vol] 152 mg/dL High 60-105 [facility] Comment on above: Order Comment: Speci men Type: VENOUS BLOOD SPECIMENOrdering Facility: [facility] Address: [address] [place] [address] Performed By: #### 2 4344-4 ####[facility] LABCLIA [id number] [place] [address] [place] HCO3 (Bld) [Moles/Vol] 29 mmol/L High 24-28 [facility] Comment on above: Order Comment: Speci men Type: VENOUS BLOOD SPECIMENOrdering Facility: [facility] Address: [address] [place] [address] Performed By: #### 2 4344-4 ####[facility] LABCLIA [id number] [place] [address] [place] Hematocrit (Bld) [Volume fraction] 25.7 % Low 39.0-51.0 [facility] Comment on above: Order Comment: Speci men Type: VENOUS BLOOD SPECIMENOrdering Facility: [facility] Address: [address] [place] [address] Performed By: #### 2 4344-4 ####[facility] LABCLIA [id number] [place] [address] [place] Hemoglobin (Bld) [Mass/Vol] 8.2 g/dL Low 13.0-17.0 [facility] Comment on above: Order Comment: Speci men Type: VENOUS BLOOD SPECIMENOrdering Facility: [facility] Address: [address] [place] [address] Performed By: #### 2 4344-4 ####[facility] LABIA [id number] [place] [address] [place] Lactate [Moles/Vol] 0.9 mmol/L Normal 0.5-2.2 [facility] Comment on above: Order Comment: Speci men Type: VENOUS BLOOD SPECIMENOrdering Facility: [facility] Address: [address] [place] [address] Performed By: #### 2 4344-4 ####[facility] LABIA [id number] [place] [address] [place] Methemoglobin (Bld) [Mass fraction] 1.0 % Normal 0.0-1.5 [facility] Comment on above: Order Comment: Speci men Type: VENOUS BLOOD SPECIMENOrdering Facility: [facility] Address: [address] [place], [place] [address] Performed By: #### 2 4344-4 ####[facility] LABIA [id number] [place] [id number] [place] O2 THERAPY NC = Nasal Cannula Normal [facility] Comment on above: Order Comment: Speci men Type: VENOUS BLOOD SPECIMENOrdering Facility: [facility] Address: [address] [place], [place] [address] Performed By: #### 2 4344-4 ####[facility] LABCLIA [id number] [address] [address] [place] Oxygen (BldV) [Partial pressure] 40 mm[Hg] Normal 35-45 [facility] Comment on above: Order Comment: Speci men Type: VENOUS BLOOD SPECIMENOrdering Facility: [facility] Address: [address] [place], [place] [address] Performed By: #### 2 4344-4 ####[facility] LABCLIA [id number] [address] [address] [place] Oxygen saturation in Venous blood 68 % Normal 60-85 [facility] Comment on above: Order Comment: Speci men Type: VENOUS BLOOD SPECIMENOrdering Facility: [facility] Address: [address] [place], [place] [address] Performed By: #### 2 4344-4 ####[facility] LABCLIA [id number] [place] [id number] [place] Oxyhemoglobin (BldV) [Mass fraction] 66 % Normal 60-85 [facility] Comment on above: Order Comment: Speci men Type: VENOUS BLOOD SPECIMENOrdering Facility: [facility] Address: [address] [place], [place] [address] Performed By: #### 2 4344-4 ####[facility] LABCLIA [id number] [address] [address] [place] pH (BldV) 7.41 [pH] Normal 7.32-7.42 [facility] Comment on above: Order Comment: Speci men Type: VENOUS BLOOD SPECIMENOrdering Facility: [facility] Address: [address] [place] [address] Performed By: #### 2 4344-4 ####[facility] LABCLIA [id number] [address] [address] [place] Potassium [Moles/Vol] 3.9 mmol/L Normal 3.5-5.0 [facility] Comment on above: Order Comment: Speci men Type: VENOUS BLOOD SPECIMENOrdering Facility: [facility] Address: [address] [place] [address] Performed By: #### 2 4344-4 ####[facility] LABCLIA [id number] [place] [address] [place] Sodium [Moles/Vol] 133 mmol/L Low 136-144 [facility] Comment on above: Order Comment: Speci men Type: VENOUS BLOOD SPECIMENOrdering Facility: [facility] Address: [address] [place] [address] Performed By: #### 2 4344-4 ####[facility] LABCLIA [id number] [place] [address] [place] Base excess Calc (BldV) [Moles/Vol] 7 mmol/L High 0-2 [facility] Comment on above: Order Comment: Speci men Type: VENOUS BLOOD SPECIMENOrdering Facility: [facility] Address: [address] [place] [address] Performed By: #### 2 4344-4 ####[facility] LABIA [id number] [place] [address] [place] Body temperature 98.24 [degF] Normal [facility] Comment on above: Order Comment: Speci men Type: VENOUS BLOOD SPECIMENOrdering Facility: [facility] Address: [address] [place] [address] Performed By: #### 2 4344-4 ####[facility] LABCLIA [id number] [place] [address] [place] Calcium.ionized (Bld) [Mass/Vol] 1.12 mmol/L Normal 1.08-1.30 [facility] Comment on above: Order Comment: Speci men Type: VENOUS BLOOD SPECIMENOrdering Facility: [facility] Address: [address] [place] [address] Performed By: #### 2 4344-4 ####[facility] LABCLIA [id number] [place] [address] [place] Calcium.ionized adjusted to pH 7.4 (BldA) [Moles/Vol] 1.12 mmol/L Normal 1.08-1.30 [facility] Comment on above: Order Comment: Speci men Type: VENOUS BLOOD SPECIMENOrdering Facility: [facility] Address: [address] [place] [address] Performed By: #### 2 4344-4 ####[facility] LABIA [id number] [place] [address] [place] Carboxyhemoglobin (BldV) [Mass fraction] 1.1 % Normal 0.0-2.0 [facility] Comment on above: Order Comment: Speci men Type: VENOUS BLOOD SPECIMENOrdering Facility: [facility] Address: [address] [place] [address] Result Comment: Carb oxyhemoglobin Reference Range for Smokers: 2.0-8.0% Performed By: #### 2 4344-4 ####[facility] LABCLIA [id number] [place] [address] [place] CO2 (BldV) [Partial pressure] 51 mm[Hg] Normal 42-55 [facility] Comment on above: Order Comment: Speci men Type: VENOUS BLOOD SPECIMENOrdering Facility: [facility] Address: [address] [place] [address] Performed By: #### 2 4344-4 ####[facility] LABCLIA [id number] [place] [address] [place] CO2 adjusted to patient's actual temperature (BldV) [Partial pressure] 51 mmHg Normal 42-55 [facility] Comment on above: Order Comment: Speci men Type: VENOUS BLOOD SPECIMENOrdering Facility: [facility] Address: [address] [place] [address] Performed By: #### 2 4344-4 ####[facility] LABIA [id number] [place] [id number] [place] Glucose [Mass/Vol] 177 mg/dL High 60-105 [facility] Comment on above: Order Comment: Speci men Type: VENOUS BLOOD SPECIMENOrdering Facility: [facility] Address: [address] [place] [address] Performed By: #### 2 4344-4 ####[facility] LABCLIA [id number] [place] [address] [place] HCO3 (Bld) [Moles/Vol] 32 mmol/L High 24-28 [facility] Comment on above: Order Comment: Speci men Type: VENOUS BLOOD SPECIMENOrdering Facility: [facility] Address: [address] [place] [address] Performed By: #### 2 4344-4 ####[facility] LABIA [id number] [place] [address] [place] Hematocrit (Bld) [Volume fraction] 26.3 % Low 39.0-51.0 [facility] Comment on above: Order Comment: Speci men Type: VENOUS BLOOD SPECIMENOrdering Facility: [facility] Address: [address] [place] [address] Performed By: #### 2 4344-4 ####[facility] LABIA [id number] [place] [address] [place] Hemoglobin (Bld) [Mass/Vol] 8.5 g/dL Low 13.0-17.0 [facility] Comment on above: Order Comment: Speci men Type: VENOUS BLOOD SPECIMENOrdering Facility: [facility] Address: [address] [place] [address] Performed By: #### 2 4344-4 ####[facility] LABIA [id number] [place] [id number] [place] Lactate [Moles/Vol] 0.6 mmol/L Normal 0.5-2.2 [facility] Comment on above: Order Comment: Speci men Type: VENOUS BLOOD SPECIMENOrdering Facility: [facility] Address: [address] [id number] Performed By: #### 2 4344-4 ####[facility] LABCLIA [id number] [place] [id number] [place] LITERS 3 Liters/min Normal [facility] Comment on above: Order Comment: Speci men Type: VENOUS BLOOD SPECIMENOrdering Facility: [facility] Address: [address] [place], [place] [address] Performed By: #### 2 4344-4 ####[facility] LABCLIA [id number] [place] [id number] [place] Methemoglobin (Bld) [Mass fraction] 1.3 % Normal 0.0-1.5 [facility] Comment on above: Order Comment: Speci men Type: VENOUS BLOOD SPECIMENOrdering Facility: [facility] Address: [address] [place] [address] Performed By: #### 2 4344-4 ####[facility] LABIA [id number] [place] [id number] [place] O2 THERAPY NC = Nasal Cannula Normal [facility] Comment on above: Order Comment: Speci men Type: VENOUS BLOOD SPECIMENOrdering Facility: [facility] Address: [address] [place], [place] [address] Performed By: #### 2 4344-4 ####[facility] LABCLIA [id number] [address] [address] [place] Oxygen (BldV) [Partial pressure] 36 mm[Hg] Normal 35-45 [facility] Comment on above: Order Comment: Speci men Type: VENOUS BLOOD SPECIMENOrdering Facility: [facility] Address: [address] [place], [place] [address] Performed By: #### 2 4344-4 ####[facility] LABCLIA [id number] [address] [address] [place] Oxygen adjusted to patient's actual temperature (BldV) [Partial pressure] 36 mmHg Normal 35-45 [facility] Comment on above: Order Comment: Speci men Type: VENOUS BLOOD SPECIMENOrdering Facility: [facility] Address: [address] [place], [place] [address] Performed By: #### 2 4344-4 ####[facility] LABCLIA [id number] [address] [address] [place] Oxygen saturation in Venous blood 63 % Normal 60-85 [facility] Comment on above: Order Comment: Speci men Type: VENOUS BLOOD SPECIMENOrdering Facility: [facility] Address: [address] [place] [address] Performed By: #### 2 4344-4 ####[facility] LABCLIA [id number] [address] [address] [place] Oxyhemoglobin (BldV) [Mass fraction] 61 % Normal 60-85 [facility] Comment on above: Order Comment: Speci men Type: VENOUS BLOOD SPECIMENOrdering Facility: [facility] Address: [address] [place] [address] Performed By: #### 2 4344-4 ####[facility] LABCLIA [id number] [address] [address] [place] pH (BldV) 7.41 [pH] Normal 7.32-7.42 [facility] Comment on above: Order Comment: Speci men Type: VENOUS BLOOD SPECIMENOrdering Facility: [facility] Address: [address] [place], [place] [address] Performed By: #### 2 4344-4 ####[facility] LABCLIA [id number] [address] [address] [place] pH adjusted to patient's actual temperature (BldV) 7.41 Normal 7.32-7.42 [facility] Comment on above: Order Comment: Speci men Type: VENOUS BLOOD SPECIMENOrdering Facility: [facility] Address: [address] [place] [address] [place] [address] Performed By: #### 2 4344-4 ####[facility] LABCLIA [id number] [address] [address] [place] Potassium [Moles/Vol] 4.4 mmol/L Normal 3.5-5.0 [facility] Comment on above: Order Comment: Speci men Type: VENOUS BLOOD SPECIMENOrdering Facility: [facility] Address: [address] [place] [address] Performed By: #### 2 4344-4 ####[facility] LABCLIA [id number] [place] [id number] [place] Sodium [Moles/Vol] 132 mmol/L Low 136-144 [facility] Comment on above: Order Comment: Speci men Type: VENOUS BLOOD SPECIMENOrdering Facility: [facility] Address: [address] [place] [address] Performed By: #### 2 4344-4 ####[facility] LABCLIA [id number] [address] [address] [place] Base excess Calc (BldV) [Moles/Vol] 7 mmol/L High 0-2 [facility] Comment on above: Order Comment: Speci men Type: VENOUS BLOOD SPECIMENOrdering Facility: [facility] Address: [address] [place], [place] [address] Performed By: #### 2 4344-4 ####[facility] LABCLIA [id number] [address] [address] [place] Body temperature 97.34 [degF] Normal [facility] Comment on above: Order Comment: Speci men Type: VENOUS BLOOD SPECIMENOrdering Facility: [facility] Address: [address] [place], [place] [address] Performed By: #### 2 4344-4 ####[facility] LABCLIA [id number] [address] [address] [place] Calcium.ionized (Bld) [Mass/Vol] 1.14 mmol/L Normal 1.08-1.30 [facility] Comment on above: Order Comment: Speci men Type: VENOUS BLOOD SPECIMENOrdering Facility: [facility] Address: [address] [place] [address] Performed By: #### 2 4344-4 ####[facility] LABIA [id number] [place] [address] [place] Calcium.ionized adjusted to pH 7.4 (BldA) [Moles/Vol] 1.14 mmol/L Normal 1.08-1.30 [facility] Comment on above: Order Comment: Speci men Type: VENOUS BLOOD SPECIMENOrdering Facility: [facility] Address: [address] [place] [address] Performed By: #### 2 4344-4 ####[facility] LABIA [id number] [address] [place] Carboxyhemoglobin (BldV) [Mass fraction] 1.4 % Normal 0.0-2.0 [facility] Comment on above: Order Comment: Speci men Type: VENOUS BLOOD SPECIMENOrdering Facility: [facility] Address: [address] [place] [address] Result Comment: Carb oxyhemoglobin Reference Range for Smokers: 2.0-8.0% Performed By: #### 2 4344-4 ####[facility] LABIA [id number] [place] [address] [place] CO2 (BldV) [Partial pressure] 50 mm[Hg] Normal 42-55 [facility] Comment on above: Order Comment: Speci men Type: VENOUS BLOOD SPECIMENOrdering Facility: [facility] Address: [address] [place] [address] Performed By: #### 2 4344-4 ####[facility] LABCLIA [id number] [place] [address] [place] CO2 adjusted to patient's actual temperature (BldV) [Partial pressure] 49 mmHg Normal 42-55 [facility] Comment on above: Order Comment: Speci men Type: VENOUS BLOOD SPECIMENOrdering Facility: [facility] Address: [address] [id number] Performed By: #### 2 4344-4 ####[facility] LABCLIA [id number] [place] [id number] [place] Glucose [Mass/Vol] 144 mg/dL High 60-105 [facility] Comment on above: Order Comment: Speci men Type: VENOUS BLOOD SPECIMENOrdering Facility: [facility] Address: [address] [place] [address] Performed By: #### 2 4344-4 ####[facility] LABIA [id number] [address] [place] [address] [place] HCO3 (Bld) [Moles/Vol] 32 mmol/L High 24-28 [facility] Comment on above: Order Comment: Speci men Type: VENOUS BLOOD SPECIMENOrdering Facility: [facility] Address: [address] [place], [place] [address] Performed By: #### 2 4344-4 ####[facility] LABIA [id number] [address] [address] [place] Hematocrit (Bld) [Volume fraction] 27.0 % Low 39.0-51.0 [facility] Comment on above: Order Comment: Speci men Type: VENOUS BLOOD SPECIMENOrdering Facility: [facility] Address: [address] [place], [place] [address] Performed By: #### 2 4344-4 ####[facility] LABIA [id number] [place] [id number] [place] Hemoglobin (Bld) [Mass/Vol] 8.7 g/dL Low 13.0-17.0 [facility] Comment on above: Order Comment: Speci men Type: VENOUS BLOOD SPECIMENOrdering Facility: [facility] Address: [address] [place] [address] Performed By: #### 2 4344-4 ####[facility] LABCLIA [id number] [place] [address] [place] Lactate [Moles/Vol] 0.8 mmol/L Normal 0.5-2.2 [facility] Comment on above: Order Comment: Speci men Type: VENOUS BLOOD SPECIMENOrdering Facility: [facility] Address: [address] [place] [address] Performed By: #### 2 4344-4 ####[facility] LABCLIA [id number] [place] [address] [place] LITERS 3 Liters/min Normal [facility] Comment on above: Order Comment: Speci men Type: VENOUS BLOOD SPECIMENOrdering Facility: [facility] Address: [address] [place] [address] Performed By: #### 2 4344-4 ####[facility] LABIA [id number] [place] [address] [place] Methemoglobin (Bld) [Mass fraction] 1.3 % Normal 0.0-1.5 [facility] Comment on above: Order Comment: Speci men Type: VENOUS BLOOD SPECIMENOrdering Facility: [facility] Address: [address] [place] [address] Performed By: #### 2 4344-4 ####[facility] LABCLIA [id number] [place] [address] [place] O2 THERAPY NC = Nasal Cannula Normal [facility] Comment on above: Order Comment: Speci men Type: VENOUS BLOOD SPECIMENOrdering Facility: [facility] Address: [address] [place], [place] [address] Performed By: #### 2 4344-4 ####[facility] LABCLIA [id number] [place] [id number] [place] Oxygen (BldV) [Partial pressure] 36 mm[Hg] Normal 35-45 [facility] Comment on above: Order Comment: Speci men Type: VENOUS BLOOD SPECIMENOrdering Facility: [facility] Address: [address] [place] [address] Performed By: #### 2 4344-4 ####[facility] LABCLIA [id number] [address] [address] [place] Oxygen adjusted to patient's actual temperature (BldV) [Partial pressure] 34 mmHg Low 35-45 [facility] Comment on above: Order Comment: Speci men Type: VENOUS BLOOD SPECIMENOrdering Facility: [facility] Address: [address] [place] [address] Performed By: #### 2 4344-4 ####[facility] LABCLIA [id number] [address] [address] [place] Oxygen saturation in Venous blood 59 % Low 60-85 [facility] Comment on above: Order Comment: Speci men Type: VENOUS BLOOD SPECIMENOrdering Facility: [facility] Address: [address] [place] [address] Performed By: #### 2 4344-4 ####[facility] LABCLIA [id number] [address] [address] [place] Oxyhemoglobin (BldV) [Mass fraction] 58 % Low 60-85 [facility] Comment on above: Order Comment: Speci men Type: VENOUS BLOOD SPECIMENOrdering Facility: [facility] Address: [address] [place], [place] [address] Performed By: #### 2 4344-4 ####[facility] LABCLIA [id number] [address] [address] [place] pH (BldV) 7.41 [pH] Normal 7.32-7.42 [facility] Comment on above: Order Comment: Speci men Type: VENOUS BLOOD SPECIMENOrdering Facility: [facility] Address: [address] [place], [place] [address] Performed By: #### 2 4344-4 ####[facility] LABCLIA [id number] [place] [address] [place] pH adjusted to patient's actual temperature (BldV) 7.42 Normal 7.32-7.42 [facility] Comment on above: Order Comment: Speci men Type: VENOUS BLOOD SPECIMENOrdering Facility: [facility] Address: [address] [place] [address] Performed By: #### 2 4344-4 ####[facility] LABIA [id number] [place] [address] [place] Potassium [Moles/Vol] 4.4 mmol/L Normal 3.5-5.0 [facility] Comment on above: Order Comment: Speci men Type: VENOUS BLOOD SPECIMENOrdering Facility: [facility] Address: [address] [place] [address] Performed By: #### 2 4344-4 ####[facility] LABIA [id number] [place] [address] [place] Sodium [Moles/Vol] 133 mmol/L Low 136-144 [facility] Comment on above: Order Comment: Speci men Type: VENOUS BLOOD SPECIMENOrdering Facility: [facility] Address: [address] [place] [address] Performed By: #### 2 4344-4 ####[facility] LABIA [id number] [place] [address] [place] Base excess Calc (BldV) [Moles/Vol] 6 mmol/L High 0-2 [facility] Comment on above: Order Comment: Speci men Type: VENOUS BLOOD SPECIMENOrdering Facility: [facility] Address: [address] [place] [address] Performed By: #### 2 4344-4 ####[facility] LABIA [id number] [place] [address] [place] Calcium.ionized (Bld) [Mass/Vol] 1.11 mmol/L Normal 1.08-1.30 [facility] Comment on above: Order Comment: Speci men Type: VENOUS BLOOD SPECIMENOrdering Facility: [facility] Address: [address] [place] [address] Performed By: #### 2 4344-4 ####[facility] LABCLIA [id number] [place] [address] [place] Calcium.ionized adjusted to pH 7.4 (BldA) [Moles/Vol] 1.13 mmol/L Normal 1.08-1.30 [facility] Comment on above: Order Comment: Speci men Type: VENOUS BLOOD SPECIMENOrdering Facility: [facility] Address: [address] [place] [address] Performed By: #### 2 4344-4 ####[facility] LABIA [id number] [address] [place] Carboxyhemoglobin (BldV) [Mass fraction] 1.1 % Normal 0.0-2.0 [facility] Comment on above: Order Comment: Speci men Type: VENOUS BLOOD SPECIMENOrdering Facility: [facility] Address: [address] [place] [address] Result Comment: Carb oxyhemoglobin Reference Range for Smokers: 2.0-8.0% Performed By: #### 2 4344-4 ####[facility] LABIA [id number] [place] [address] [place] CO2 (BldV) [Partial pressure] 49 mm[Hg] Normal 42-55 [facility] Comment on above: Order Comment: Speci men Type: VENOUS BLOOD SPECIMENOrdering Facility: [facility] Address: [address] [place] [address] Performed By: #### 2 4344-4 ####[facility] LABCLIA [id number] [place] [address] [place] CO2 adjusted to patient's actual temperature (BldV) [Partial pressure] 47 mmHg Normal 42-55 [facility] Comment on above: Order Comment: Speci men Type: VENOUS BLOOD SPECIMENOrdering Facility: [facility] Address: [address] [place], [place] [address] Performed By: #### 2 4344-4 ####[facility] LABCLIA [id number] [facility] [address] [address] [place] Glucose [Mass/Vol] 99 mg/dL Normal 60-105 [facility] Comment on above: Order Comment: Speci men Type: VENOUS BLOOD SPECIMENOrdering Facility: [facility] Address: [address] [place] [address] Performed By: #### 2 4344-4 ####[facility] LABCLIA [id number] [address] [place] [address] [place] Hematocrit (Bld) [Volume fraction] 26.5 % Low 39.0-51.0 [facility] Comment on above: Order Comment: Speci men Type: VENOUS BLOOD SPECIMENOrdering Facility: [facility] Address: [address] [place], [place] [address] Performed By: #### 2 4344-4 ####[facility] LABCLIA [id number] [address] [address] [place] Hemoglobin (Bld) [Mass/Vol] 8.5 g/dL Low 13.0-17.0 [facility] Comment on above: Order Comment: Speci men Type: VENOUS BLOOD SPECIMENOrdering Facility: [facility] Address: [address] [place], [place] [address] Performed By: #### 2 4344-4 ####[facility] LABCLIA [id number] [place] [id number] [place] Lactate [Moles/Vol] 1.1 mmol/L Normal 0.5-2.2 [facility] Comment on above: Order Comment: Speci men Type: VENOUS BLOOD SPECIMENOrdering Facility: [facility] Address: [address] [id number] Performed By: #### 2 4344-4 ####[facility] LABCLIA [id number] [address] [place] [address] [place] Methemoglobin (Bld) [Mass fraction] 0.9 % Normal 0.0-1.5 [facility] Comment on above: Order Comment: Speci men Type: VENOUS BLOOD SPECIMENOrdering Facility: [facility] Address: [address] [place] [address] Performed By: #### 2 4344-4 ####[facility] LABCLIA [id number] [address] [place] [address] [place] Oxygen (BldV) [Partial pressure] 37 mm[Hg] Normal 35-45 [facility] Comment on above: Order Comment: Speci men Type: VENOUS BLOOD SPECIMENOrdering Facility: [facility] Address: [address] [place] [address] Performed By: #### 2 4344-4 ####[facility] LABCLIA [id number] [address] [place] [address] [place] Oxygen adjusted to patient's actual temperature (BldV) [Partial pressure] 36 mmHg Normal 35-45 [facility] Comment on above: Order Comment: Speci men Type: VENOUS BLOOD SPECIMENOrdering Facility: [facility] Address: [address] [place], [place] [address] Performed By: #### 2 4344-4 ####[facility] LABCLIA [id number] [address] [place] [address] [place] Oxygen saturation in Venous blood 63 % Normal 60-85 [facility] Comment on above: Order Comment: Speci men Type: VENOUS BLOOD SPECIMENOrdering Facility: [facility] Address: [address] [place], [place] [address] Performed By: #### 2 4344-4 ####[facility] LABCLIA [id number] [address] [place] [address] [place] Oxyhemoglobin (BldV) [Mass fraction] 62 % Normal 60-85 [facility] Comment on above: Order Comment: Speci men Type: VENOUS BLOOD SPECIMENOrdering Facility: [facility] Address: [address] [place] [address] Performed By: #### 2 4344-4 ####[facility] LABCLIA [id number] [place] [address] [place] pH (BldV) 7.42 [pH] Normal 7.32-7.42 [facility] Comment on above: Order Comment: Speci men Type: VENOUS BLOOD SPECIMENOrdering Facility: [facility] Address: [address] [place] [address] Performed By: #### 2 4344-4 ####[facility] LABIA [id number] [place] [address] [place] pH adjusted to patient's actual temperature (BldV) 7.43 High 7.32-7.42 [facility] Comment on above: Order Comment: Speci men Type: VENOUS BLOOD SPECIMENOrdering Facility: [facility] Address: [address] [place] [address] Performed By: #### 2 4344-4 ####[facility] LABIA [id number] [place] [id number] [place] Potassium [Moles/Vol] 4.2 mmol/L Normal 3.5-5.0 [facility] Comment on above: Order Comment: Speci men Type: VENOUS BLOOD SPECIMENOrdering Facility: [facility] Address: [address] [place] [address] Performed By: #### 2 4344-4 ####[facility] LABIA [id number] [place] [id number] [place] Sodium [Moles/Vol] 133 mmol/L Low 136-144 [facility] Comment on above: Order Comment: Speci men Type: VENOUS BLOOD SPECIMENOrdering Facility: [facility] Address: [address] [place] [address] Performed By: #### 2 4344-4 ####[facility] [id number] [place] [address] [place] Base excess Calc (BldV) [Moles/Vol] 6 mmol/L High 0-2 [facility] Comment on above: Order Comment: Speci men Type: VENOUS BLOOD SPECIMENOrdering Facility: [facility] Address: [address] [place] [address] Performed By: #### 2 4344-4 ####[facility] [id number] [place] [address] [place] Calcium.ionized (Bld) [Mass/Vol] 1.12 mmol/L Normal 1.08-1.30 [facility] Comment on above: Order Comment: Speci men Type: VENOUS BLOOD SPECIMENOrdering Facility: [facility] Address: [address] [place] [address] Performed By: #### 2 4344-4 ####[facility] [id number] [place] [address] [place] Calcium.ionized adjusted to pH 7.4 (BldA) [Moles/Vol] 1.12 mmol/L Normal 1.08-1.30 [facility] Comment on above: Order Comment: Speci men Type: VENOUS BLOOD SPECIMENOrdering Facility: [facility] Address: [address] [place] [address] Performed By: #### 2 4344-4 ####[facility] [id number] [place] [address] [place] Carboxyhemoglobin (BldV) [Mass fraction] 1.2 % Normal 0.0-2.0 [facility] Comment on above: Order Comment: Speci men Type: VENOUS BLOOD SPECIMENOrdering Facility: [facility] Address: [address] [place] [address] Result Comment: Carb oxyhemoglobin Reference Range for Smokers: 2.0-8.0% Performed By: #### 2 4344-4 ####[facility] LABCLIA [id number] [address] [address] [place] CO2 (BldV) [Partial pressure] 51 mm[Hg] Normal 42-55 [facility] Comment on above: Order Comment: Speci men Type: VENOUS BLOOD SPECIMENOrdering Facility: [facility] Address: [address] [place] [address] Performed By: #### 2 4344-4 ####[facility] LABCLIA [id number] [place] [address] [place] CO2 adjusted to patient's actual temperature (BldV) [Partial pressure] 49 mmHg Normal 42-55 [facility] Comment on above: Order Comment: Speci men Type: VENOUS BLOOD SPECIMENOrdering Facility: [facility] Address: [address] [place] [address] Performed By: #### 2 4344-4 ####[facility] LABCLIA [id number] [place] [id number] [place] Glucose [Mass/Vol] 152 mg/dL High 60-105 [facility] Comment on above: Order Comment: Speci men Type: VENOUS BLOOD SPECIMENOrdering Facility: [facility] Address: [address] [place], [place] [address] Performed By: #### 2 4344-4 ####[facility] LABCLIA [id number] [address] [address] [place] HCO3 (Bld) [Moles/Vol] 31 mmol/L High 24-28 [facility] Comment on above: Order Comment: Speci men Type: VENOUS BLOOD SPECIMENOrdering Facility: [facility] Address: [address] [place], [place] [address] Performed By: #### 2 4344-4 ####[facility] LABCLIA [id number] [address] [address] [place] Hematocrit (Bld) [Volume fraction] 28.9 % Low 39.0-51.0 [facility] Comment on above: Order Comment: Speci men Type: VENOUS BLOOD SPECIMENOrdering Facility: [facility] Address: [address] [place] [address] Performed By: #### 2 4344-4 ####[facility] LABCLIA [id number] [place] [address] [place] Hemoglobin (Bld) [Mass/Vol] 9.3 g/dL Low 13.0-17.0 [facility] Comment on above: Order Comment: Speci men Type: VENOUS BLOOD SPECIMENOrdering Facility: [facility] Address: [address] [place] [address] Performed By: #### 2 4344-4 ####[facility] LABCLIA [id number] [place] [address] [place] Lactate [Moles/Vol] 0.7 mmol/L Normal 0.5-2.2 [facility] Comment on above: Order Comment: Speci men Type: VENOUS BLOOD SPECIMENOrdering Facility: [facility] Address: [address] [place] [address] Performed By: #### 2 4344-4 ####[facility] LABIA [id number] [place] [address] [place] Methemoglobin (Bld) [Mass fraction] 1.3 % Normal 0.0-1.5 [facility] Comment on above: Order Comment: Speci men Type: VENOUS BLOOD SPECIMENOrdering Facility: [facility] Address: [address] [place] [address] Performed By: #### 2 4344-4 ####[facility] LABCLIA [id number] [place] [id number] [place] Oxygen (BldV) [Partial pressure] 38 mm[Hg] Normal 35-45 [facility] Comment on above: Order Comment: Speci men Type: VENOUS BLOOD SPECIMENOrdering Facility: [facility] Address: [address] [place] [address] Performed By: #### 2 4344-4 ####[facility] LABCLIA [id number] [address] [address] [place] Oxygen adjusted to patient's actual temperature (BldV) [Partial pressure] 36 mmHg Normal 35-45 [facility] Comment on above: Order Comment: Speci men Type: VENOUS BLOOD SPECIMENOrdering Facility: [facility] Address: [address] [place], [place] [address] Performed By: #### 2 4344-4 ####[facility] LABCLIA [id number] [address] [address] [place] Oxygen saturation in Venous blood 66 % Normal 60-85 [facility] Comment on above: Order Comment: Speci men Type: VENOUS BLOOD SPECIMENOrdering Facility: [facility] Address: [address] [place], [place] [address] Performed By: #### 2 4344-4 ####[facility] LABCLIA [id number] [address] [address] [place] Oxyhemoglobin (BldV) [Mass fraction] 64 % Normal 60-85 [facility] Comment on above: Order Comment: Speci men Type: VENOUS BLOOD SPECIMENOrdering Facility: [facility] Address: [address] [place], [place] [address] Performed By: #### 2 4344-4 ####[facility] LABCLIA [id number] [address] [address] [place] pH (BldV) 7.40 [pH] Normal 7.32-7.42 [facility] Comment on above: Order Comment: Speci men Type: VENOUS BLOOD SPECIMENOrdering Facility: [facility] Address: [address] [place], [place] [address] Performed By: #### 2 4344-4 ####[facility] LABCLIA [id number] [place] [address] [place] pH adjusted to patient's actual temperature (BldV) 7.41 Normal 7.32-7.42 [facility] Comment on above: Order Comment: Speci men Type: VENOUS BLOOD SPECIMENOrdering Facility: [facility] Address: [address] [place] [address] Performed By: #### 2 4344-4 ####[facility] LABCLIA [id number] [place] [address] [place] Potassium [Moles/Vol] 4.4 mmol/L Normal 3.5-5.0 [facility] Comment on above: Order Comment: Speci men Type: VENOUS BLOOD SPECIMENOrdering Facility: [facility] Address: [address] [place] [address] Performed By: #### 2 4344-4 ####[facility] LABIA [id number] [place] [address] [place] Sodium [Moles/Vol] 132 mmol/L Low 136-144 [facility] Comment on above: Order Comment: Speci men Type: VENOUS BLOOD SPECIMENOrdering Facility: [facility] Address: [address] [place] [address] Performed By: #### 2 4344-4 ####[facility] LABIA [id number] [place] [address] [place] Base excess Calc (BldV) [Moles/Vol] 6 mmol/L High 0-2 [facility] Comment on above: Order Comment: Speci men Type: VENOUS BLOOD SPECIMENOrdering Facility: [facility] Address: [address] [place] [address] Performed By: #### 2 4344-4 ####[facility] LABCLIA [id number] [place] [address] [place] Calcium.ionized (Bld) [Mass/Vol] 1.17 mmol/L Normal 1.08-1.30 [facility] Comment on above: Order Comment: Speci men Type: VENOUS BLOOD SPECIMENOrdering Facility: [facility] Address: [address] [place] [address] Performed By: #### 2 4344-4 ####[facility] LABIA [id number] [place] [address] [place] Calcium.ionized adjusted to pH 7.4 (BldA) [Moles/Vol] 1.17 mmol/L Normal 1.08-1.30 [facility] Comment on above: Order Comment: Speci men Type: VENOUS BLOOD SPECIMENOrdering Facility: [facility] Address: [address] [place] [address] Performed By: #### 2 4344-4 ####[facility] LABIA [id number] [place] [address] [place] Carboxyhemoglobin (BldV) [Mass fraction] 1.2 % Normal 0.0-2.0 [facility] Comment on above: Order Comment: Speci men Type: VENOUS BLOOD SPECIMENOrdering Facility: [facility] Address: [address] [place] [address] Result Comment: Carb oxyhemoglobin Reference Range for Smokers: 2.0-8.0% Performed By: #### 2 4344-4 ####[facility] LABIA [id number] [place] [address] [place] CO2 (BldV) [Partial pressure] 52 mm[Hg] Normal 42-55 [facility] Comment on above: Order Comment: Speci men Type: VENOUS BLOOD SPECIMENOrdering Facility: [facility] Address: [address] [place] [address] Performed By: #### 2 4344-4 ####[facility] LABCLIA [id number] [place] [id number] [place] Glucose [Mass/Vol] 141 mg/dL High 60-105 [facility] Comment on above: Order Comment: Speci men Type: VENOUS BLOOD SPECIMENOrdering Facility: [facility] Address: [address] [place] [address] Performed By: #### 2 4344-4 ####[facility] LABIA [id number] [place] [address] [place] HCO3 (Bld) [Moles/Vol] 31 mmol/L High 24-28 [facility] Comment on above: Order Comment: Speci men Type: VENOUS BLOOD SPECIMENOrdering Facility: [facility] Address: [address] [place] [address] Performed By: #### 2 4344-4 ####[facility] LABIA [id number] [place] [address] [place] Hematocrit (Bld) [Volume fraction] 29.7 % Low 39.0-51.0 [facility] Comment on above: Order Comment: Speci men Type: VENOUS BLOOD SPECIMENOrdering Facility: [facility] Address: [address] [place] [address] Performed By: #### 2 4344-4 ####[facility] LABIA [id number] [place] [address] [place] Hemoglobin (Bld) [Mass/Vol] 9.6 g/dL Low 13.0-17.0 [facility] Comment on above: Order Comment: Speci men Type: VENOUS BLOOD SPECIMENOrdering Facility: [facility] Address: [address] [place] [address] Performed By: #### 2 4344-4 ####[facility] LABIA [id number] [place] [id number] [place] Methemoglobin (Bld) [Mass fraction] 1.4 % Normal 0.0-1.5 [facility] Comment on above: Order Comment: Speci men Type: VENOUS BLOOD SPECIMENOrdering Facility: [facility] Address: [address] [place], [place] [address] Performed By: #### 2 4344-4 ####[facility] LABCLIA [id number] [address] [address] [place] Oxygen (BldV) [Partial pressure] 33 mm[Hg] Low 35-45 [facility] Comment on above: Order Comment: Speci men Type: VENOUS BLOOD SPECIMENOrdering Facility: [facility] Address: [address] [place], [place] [address] Performed By: #### 2 4344-4 ####[facility] LABCLIA [id number] [address] [address] [place] Oxygen saturation in Venous blood 52 % Low 60-85 [facility] Comment on above: Order Comment: Speci men Type: VENOUS BLOOD SPECIMENOrdering Facility: [facility] Address: [address] [place], [place] [address] Performed By: #### 2 4344-4 ####[facility] LABCLIA [id number] [place] [id number] [place] Oxyhemoglobin (BldV) [Mass fraction] 51 % Low 60-85 [facility] Comment on above: Order Comment: Speci men Type: VENOUS BLOOD SPECIMENOrdering Facility: [facility] Address: [address] [place] [address] Performed By: #### 2 4344-4 ####[facility] LABIA [id number] [address] [address] [place] pH (BldV) 7.40 [pH] Normal 7.32-7.42 [facility] Comment on above: Order Comment: Speci men Type: VENOUS BLOOD SPECIMENOrdering Facility: [facility] Address: [address] [place], [place] [address] Performed By: #### 2 4344-4 ####[facility] LABCLIA [id number] [address] [address] [place] Potassium [Moles/Vol] 4.6 mmol/L Normal 3.5-5.0 [facility] Comment on above: Order Comment: Speci men Type: VENOUS BLOOD SPECIMENOrdering Facility: [facility] Address: [address] [place] [address] Performed By: #### 2 4344-4 ####[facility] LABIA [id number] [place] [address] [place] Sodium [Moles/Vol] 135 mmol/L Low 136-144 [facility] Comment on above: Order Comment: Speci men Type: VENOUS BLOOD SPECIMENOrdering Facility: [facility] Address: [address] [place] [address] Performed By: #### 2 4344-4 ####[facility] LABIA [id number] [place] [address] [place] Base excess Calc (BldV) [Moles/Vol] 4 mmol/L High 0-2 [facility] Comment on above: Order Comment: Speci men Type: VENOUS BLOOD SPECIMENOrdering Facility: [facility] Address: [address] [place] [address] Performed By: #### 2 4344-4 ####[facility] LABIA [id number] [place] [address] [place] Calcium.ionized (Bld) [Mass/Vol] 1.18 mmol/L Normal 1.08-1.30 [facility] Comment on above: Order Comment: Speci men Type: VENOUS BLOOD SPECIMENOrdering Facility: [facility] Address: [address] [place] [address] Performed By: #### 2 4344-4 ####[facility] LABIA [id number] [place] [address] [place] Calcium.ionized adjusted to pH 7.4 (BldA) [Moles/Vol] 1.15 mmol/L Normal 1.08-1.30 [facility] Comment on above: Order Comment: Speci men Type: VENOUS BLOOD SPECIMENOrdering Facility: [facility] Address: [address] [place] [address] Performed By: #### 2 4344-4 ####[facility] LABCLIA [id number] [address] [place] Carboxyhemoglobin (BldV) [Mass fraction] 1.0 % Normal 0.0-2.0 [facility] Comment on above: Order Comment: Speci men Type: VENOUS BLOOD SPECIMENOrdering Facility: [facility] Address: [address] [place] [address] Result Comment: Carb oxyhemoglobin Reference Range for Smokers: 2.0-8.0% Performed By: #### 2 4344-4 ####[facility] LABCLIA [id number] [place] [address] [place] CO2 (BldV) [Partial pressure] 55 mm[Hg] Normal 42-55 [facility] Comment on above: Order Comment: Speci men Type: VENOUS BLOOD SPECIMENOrdering Facility: [facility] Address: [address] [place] [address] Performed By: #### 2 4344-4 ####[facility] LABCLIA [id number] [address] [place] CO2 adjusted to patient's actual temperature (BldV) [Partial pressure] 54 mmHg Normal 42-55 [facility] Comment on above: Order Comment: Speci men Type: VENOUS BLOOD SPECIMENOrdering Facility: [facility] Address: [address] [place] [address] Performed By: #### 2 4344-4 ####[facility] LABCLIA [id number] [place] [id number] [place] Glucose [Mass/Vol] 180 mg/dL High 60-105 [facility] Comment on above: Order Comment: Speci men Type: VENOUS BLOOD SPECIMENOrdering Facility: [facility] Address: [address] [place] [address] Performed By: #### 2 4344-4 ####[facility] LABCLIA [id number] [address] [place] [address] [place] HCO3 (Bld) [Moles/Vol] 30 mmol/L High 24-28 [facility] Comment on above: Order Comment: Speci men Type: VENOUS BLOOD SPECIMENOrdering Facility: [facility] Address: [address] [place] [address] Performed By: #### 2 4344-4 ####[facility] LABCLIA [id number] [place] [id number] [place] Lactate [Moles/Vol] 1.5 mmol/L Normal 0.5-2.2 [facility] Comment on above: Order Comment: Speci men Type: VENOUS BLOOD SPECIMENOrdering Facility: [facility] Address: [address] [place] [address] Performed By: #### 2 4344-4 ####[facility] LABIA [id number] [place] [address] [place] Methemoglobin (Bld) [Mass fraction] 1.3 % Normal 0.0-1.5 [facility] Comment on above: Order Comment: Speci men Type: VENOUS BLOOD SPECIMENOrdering Facility: [facility] Address: [address] [place] [address] Performed By: #### 2 4344-4 ####[facility] LABIA [id number] [place] [id number] [place] Oxygen (BldV) [Partial pressure] 38 mm[Hg] Normal 35-45 [facility] Comment on above: Order Comment: Speci men Type: VENOUS BLOOD SPECIMENOrdering Facility: [facility] Address: [address] [place] [address] Performed By: #### 2 4344-4 ####[facility] LABCLIA [id number] [place] [id number] [place] Oxygen adjusted to patient's actual temperature (BldV) [Partial pressure] 37 mmHg Normal 35-45 [facility] Comment on above: Order Comment: Speci men Type: VENOUS BLOOD SPECIMENOrdering Facility: [facility] Address: [address] [place], [place] [address] Performed By: #### 2 4344-4 ####[facility] LABCLIA [id number] [address] [place] [address] [place] Oxygen saturation in Venous blood 65 % Normal 60-85 [facility] Comment on above: Order Comment: Speci men Type: VENOUS BLOOD SPECIMENOrdering Facility: [facility] Address: [address] [place] [address] Performed By: #### 2 4344-4 ####[facility] LABCLIA [id number] [address] [address] [place] Oxyhemoglobin (BldV) [Mass fraction] 64 % Normal 60-85 [facility] Comment on above: Order Comment: Speci men Type: VENOUS BLOOD SPECIMENOrdering Facility: [facility] Address: [address] [place] [address] Performed By: #### 2 4344-4 ####[facility] LABCLIA [id number] [address] [address] [place] pH (BldV) 7.35 [pH] Normal 7.32-7.42 [facility] Comment on above: Order Comment: Speci men Type: VENOUS BLOOD SPECIMENOrdering Facility: [facility] Address: [address] [place], [place] [address] Performed By: #### 2 4344-4 ####[facility] LABCLIA [id number] [address] [address] [place] pH adjusted to patient's actual temperature (BldV) 7.36 Normal 7.32-7.42 [facility] Comment on above: Order Comment: Speci men Type: VENOUS BLOOD SPECIMENOrdering Facility: [facility] Address: [address] [place], [place] [address] Performed By: #### 2 4344-4 ####[facility] LABIA [id number] [place] [id number] [place] Potassium [Moles/Vol] 4.5 mmol/L Normal 3.5-5.0 [facility] Comment on above: Order Comment: Speci men Type: VENOUS BLOOD SPECIMENOrdering Facility: [facility] Address: [address] [place] [address] Performed By: #### 2 4344-4 ####[facility] LABIA [id number] [place] [id number] [place] Sodium [Moles/Vol] 135 mmol/L Low 136-144 [facility] Comment on above: Order Comment: Speci men Type: VENOUS BLOOD SPECIMENOrdering Facility: [facility] Address: [address] [place] [address] Performed By: #### 2 4344-4 ####[facility] [id number] [place] [id number] [place] Magnesium SerPl-mCncon 10-21 Magnesium [Mass/Vol] 1.9 mg/dL Normal 1.7-2.3 [facility] Comment on above: Order Comment: Speci men Type: BLOOD SPECIMENOrdering Facility: [facility] Address: [address] [place] [address] Performed By: #### 2 4323-8, 37801-5, 2777-1 ####[facility] [id number] [place] [id number] [place] PT panel Coag (PPP)on 2024 INR Coag (PPP) [Relative time] 1.3 {INR} Normal 0.9-1.3 [facility] Comment on above: Order Comment: Speci men Type: BLOOD SPECIMENOrdering Facility: [facility] Address: [address] [place] [address] Result Comment: Nettie min K Antagonist (VKA) Therapeutic Range: INR 2 to 3 (Target INR of 2.5)Note: For patients treated with VKA drugs, such as warfarin, the [employer] 2012 Guideline recommends [...] al. Chest 2012, 141:7S-47SNishimsoila RA, et al. [facility] 2017, 70: 252-289 Performed By: #### 3 4528-0 ####[facility] LABIA [id number] [place] [address] [place] PT Coag (PPP) [Time] 13.8 s High 9.7-13.0 [facility] Comment on above: Order Comment: Speci men Type: BLOOD SPECIMENOrdering Facility: [facility] Address: [address] [place] [address] Performed By: #### 3 4528-0 ####[facility] LABIA [id number] [place] [address] [place] Phosphate SerPl-mCncon 10-21 Phosphate [Mass/Vol] 3.4 mg/dL Normal 2.7-4.8 [facility] Comment on above: Order Comment: Speci men Type: BLOOD SPECIMENOrdering Facility: [facility] Address: [address] [place] [address] Performed By: #### 2 4323-8, 06496-8, 2777-1 ####[facility] LABIA [id number] [place] [address] [place] XR CHEST 1V FRONTAL PORTon 0 10-21-2024 XR CHEST 1V FRONTAL PORT Normal [facility] ARTERIAL BLOOD GASESon 10-20 Base excess Calc (Bld) [Moles/Vol] 2 mmol/L Normal 0-2 [facility] Comment on above: Order Comment: Speci men Type: ARTERIAL BLOOD SPECIMENOrdering Facility: [facility] Address: [address] [place] [address] Performed By: #### A LLBG ####[facility] LABCLIA [id number] [place] [address] [place] Calcium.ionized (Bld) [Mass/Vol] 1.17 mmol/L Normal 1.08-1.30 [facility] Comment on above: Order Comment: Speci men Type: ARTERIAL BLOOD SPECIMENOrdering Facility: [facility] Address: [address] [place] [address] Performed By: #### A LLBG ####[facility] LABCLIA [id number] [place] [address] [place] Calcium.ionized adjusted to pH 7.4 (BldA) [Moles/Vol] 1.16 mmol/L Normal 1.08-1.30 [facility] Comment on above: Order Comment: Speci men Type: ARTERIAL BLOOD SPECIMENOrdering Facility: [facility] Address: [address] [place] [address] Performed By: #### A LLBG ####[facility] LABCLIA [id number] [place] [address] [place] Carboxyhemoglobin (BldA) [Mass fraction] 1.0 % Normal 0.0-2.0 [facility] Comment on above: Order Comment: Speci men Type: ARTERIAL BLOOD SPECIMENOrdering Facility: [facility] Address: [address] [place] [address] Result Comment: Carb oxyhemoglobin Reference Range for Smokers: 2.0-8.0% Performed By: #### A LLBG ####[facility] LABCLIA [id number] [address] [place] CO2 (Bld) [Partial pressure] 46 mm Hg Normal 36-46 [facility] Comment on above: Order Comment: Speci men Type: ARTERIAL BLOOD SPECIMENOrdering Facility: [facility] Address: [address] [place] [address] Performed By: #### A LLBG ####[facility] LABCLIA [id number] [place] [address] [place] CO2 adjusted to patient's actual temperature (Bld) [Partial pressure] 46 mmHg Normal 36-46 [facility] Comment on above: Order Comment: Speci men Type: ARTERIAL BLOOD SPECIMENOrdering Facility: [facility] Address: [address] [place] [address] Performed By: #### A LLBG ####[facility] LABCLIA [id number] [place] [address] [place] Glucose [Mass/Vol] 229 mg/dL High 60-105 [facility] Comment on above: Order Comment: Speci men Type: ARTERIAL BLOOD SPECIMENOrdering Facility: [facility] Address: [address] [place] [address] Performed By: #### A LLBG ####[facility] LABCLIA [id number] [place] [address] [place] Hematocrit (Bld) [Volume fraction] 28.3 % Low 39.0-51.0 [facility] Comment on above: Order Comment: Speci men Type: ARTERIAL BLOOD SPECIMENOrdering Facility: [facility] Address: [address] [place] [address] Performed By: #### A LLBG ####[facility] LABCLIA [id number] [place] [address] [place] Hemoglobin (Bld) [Mass/Vol] 9.1 g/dL Low 13.0-17.0 [facility] Comment on above: Order Comment: Speci men Type: ARTERIAL BLOOD SPECIMENOrdering Facility: [facility] Address: [address] [place] [address] Performed By: #### A LLBG ####[facility] LABCLIA [id number] [place] [address] [place] Lactate [Moles/Vol] 2.4 mmol/L High 0.5-2.2 [facility] Comment on above: Order Comment: Speci men Type: ARTERIAL BLOOD SPECIMENOrdering Facility: [facility] Address: [address] [place] [address] Performed By: #### A LLBG ####[facility] LABCLIA [id number] [place] [address] [place] Methemoglobin (Bld) [Mass fraction] 1.1 % Normal 0.0-1.5 [facility] Comment on above: Order Comment: Speci men Type: ARTERIAL BLOOD SPECIMENOrdering Facility: [facility] Address: [address] [place] [address] Performed By: #### A LLBG ####[facility] LABCLIA [id number] [place] [id number] [place] Oxygen (Bld) [Partial pressure] 104 mm Hg High 85-95 [facility] Comment on above: Order Comment: Speci men Type: ARTERIAL BLOOD SPECIMENOrdering Facility: [facility] Address: [address] [place] [address] Performed By: #### A LLBG ####[facility] LABCLIA [id number] [place] [id number] [place] Oxygen adjusted to patient's actual temperature (Bld) [Partial pressure] 103 mmHg High 85-95 [facility] Comment on above: Order Comment: Speci men Type: ARTERIAL BLOOD SPECIMENOrdering Facility: [facility] Address: [address] [place], [place] [address] Performed By: #### A LLBG ####[facility] LABCLIA [id number] [place] [address] [place] Oxyhemoglobin (BldA) [Mass fraction] 96 % Normal 95-98 [facility] Comment on above: Order Comment: Speci men Type: ARTERIAL BLOOD SPECIMENOrdering Facility: [facility] Address: [address] [place] [address] Performed By: #### A LLBG ####[facility] LABCLIA [id number] [place] [address] [place] pH (Bld) 7.38 [pH] Normal 7.35-7.45 [facility] Comment on above: Order Comment: Speci men Type: ARTERIAL BLOOD SPECIMENOrdering Facility: [facility] Address: [address] [place] [address] Performed By: #### A LLBG ####[facility] LABCLIA [id number] [place] [address] [place] pH adjusted to patient's actual temperature (Bld) 7.38 Normal 7.35-7.45 [facility] Comment on above: Order Comment: Speci men Type: ARTERIAL BLOOD SPECIMENOrdering Facility: [facility] Address: [address] [place], [place] [address] Performed By: #### A LLBG ####[facility] LABCLIA [id number] [place] [id number] [place] Potassium [Moles/Vol] 4.4 mmol/L Normal 3.5-5.0 [facility] Comment on above: Order Comment: Speci men Type: ARTERIAL BLOOD SPECIMENOrdering Facility: [facility] Address: [address] [place] [address] Performed By: #### A LLBG ####[facility] LABCLIA [id number] [place] [address] [place] Base excess Calc (Bld) [Moles/Vol] 2 mmol/L Normal 0-2 [facility] Comment on above: Order Comment: Speci men Type: ARTERIAL BLOOD SPECIMENOrdering Facility: [facility] Address: [address] [place] [address] Performed By: #### A LLBG ####[facility] LABCLIA [id number] [place] [address] [place] Body temperature 97.88 [degF] Normal [facility] Comment on above: Order Comment: Speci men Type: ARTERIAL BLOOD SPECIMENOrdering Facility: [facility] Address: [address] [place] [address] Performed By: #### A LLBG ####[facility] LABCLIA [id number] [place] [address] [place] Order Comment: Speci men Type: VENOUS BLOOD SPECIMENOrdering Facility: [facility] Address: [address] [place] [address] Performed By: #### 2 4344-4 ####[facility] LABCLIA [id number] [place] [address] [place] Calcium.ionized (Bld) [Mass/Vol] 1.15 mmol/L Normal 1.08-1.30 [facility] Comment on above: Order Comment: Speci men Type: ARTERIAL BLOOD SPECIMENOrdering Facility: [facility] Address: [address] [place] [address] Performed By: #### A LLBG ####[facility] LABCLIA [id number] [place] [address] [place] Calcium.ionized adjusted to pH 7.4 (BldA) [Moles/Vol] 1.16 mmol/L Normal 1.08-1.30 [facility] Comment on above: Order Comment: Speci men Type: ARTERIAL BLOOD SPECIMENOrdering Facility: [facility] Address: [address] [place] [address] Performed By: #### A LLBG ####[facility] LABCLIA [id number] [place] [address] [place] Carboxyhemoglobin (BldA) [Mass fraction] 1.0 % Normal 0.0-2.0 [facility] Comment on above: Order Comment: Speci men Type: ARTERIAL BLOOD SPECIMENOrdering Facility: [facility] Address: [address] [place] [address] Result Comment: Carb oxyhemoglobin Reference Range for Smokers: 2.0-8.0% Performed By: #### A LLBG ####[facility] LABCLIA [id number] [place] [address] [place] CO2 (Bld) [Partial pressure] 41 mm Hg Normal 36-46 [facility] Comment on above: Order Comment: Speci men Type: ARTERIAL BLOOD SPECIMENOrdering Facility: [facility] Address: [address] [place] [address] Performed By: #### A LLBG ####[facility] LABCLIA [id number] [place] [address] [place] CO2 adjusted to patient's actual temperature (Bld) [Partial pressure] 41 mmHg Normal 36-46 [facility] Comment on above: Order Comment: Speci men Type: ARTERIAL BLOOD SPECIMENOrdering Facility: [facility] Address: [address] [place] [address] Performed By: #### A LLBG ####[facility] LABCLIA [id number] [place] [address] [place] Glucose [Mass/Vol] 271 mg/dL High 60-105 [facility] Comment on above: Order Comment: Speci men Type: ARTERIAL BLOOD SPECIMENOrdering Facility: [facility] Address: [address] [place] [address] Performed By: #### A LLBG ####[facility] LABCLIA [id number] [place] [address] [place] HCO3 (Bld) [Moles/Vol] 26 mmol/L Normal 22-26 [facility] Comment on above: Order Comment: Speci men Type: ARTERIAL BLOOD SPECIMENOrdering Facility: [facility] Address: [address] [place] [address] Performed By: #### A LLBG ####[facility] LABCLIA [id number] [place] [address] [place] Hematocrit (Bld) [Volume fraction] 29.8 % Low 39.0-51.0 [facility] Comment on above: Order Comment: Speci men Type: ARTERIAL BLOOD SPECIMENOrdering Facility: [facility] Address: [address] [place] [address] Performed By: #### A LLBG ####[facility] LABCLIA [id number] [place] [address] [place] Hemoglobin (Bld) [Mass/Vol] 9.6 g/dL Low 13.0-17.0 [facility] Comment on above: Order Comment: Speci men Type: ARTERIAL BLOOD SPECIMENOrdering Facility: [facility] Address: [address] [place] [address] Performed By: #### A LLBG ####[facility] LABIA [id number] [place] [address] [place] Lactate [Moles/Vol] 1.4 mmol/L Normal 0.5-2.2 [facility] Comment on above: Order Comment: Speci men Type: ARTERIAL BLOOD SPECIMENOrdering Facility: [facility] Address: [address] [place] [address] Performed By: #### A LLBG ####[facility] LABCLIA [id number] [place] [address] [place] Methemoglobin (Bld) [Mass fraction] 1.5 % Normal 0.0-1.5 [facility] Comment on above: Order Comment: Speci men Type: ARTERIAL BLOOD SPECIMENOrdering Facility: [facility] Address: [address] [place] [address] Performed By: #### A LLBG ####[facility] LABCLIA [id number] [address] [place] [address] [place] O2 THERAPY NC = Nasal Cannula Normal [facility] Comment on above: Order Comment: Speci men Type: ARTERIAL BLOOD SPECIMENOrdering Facility: [facility] Address: [address] [id number] Performed By: #### A LLBG ####[facility] LABCLIA [id number] [address] [place] [address] [place] Order Comment: Speci men Type: VENOUS BLOOD SPECIMENOrdering Facility: [facility] Address: [address] [place], [place] [address] Performed By: #### 2 4344-4 ####[facility] LABCLIA [id number] [address] [address] [place] Oxygen (Bld) [Partial pressure] 95 mm Hg Normal 85-95 [facility] Comment on above: Order Comment: Speci men Type: ARTERIAL BLOOD SPECIMENOrdering Facility: [facility] Address: [address] [place], [place] [id number] Performed By: #### A LLBG ####[facility] LABCLIA [id number] [place] [id number] [place] Oxygen adjusted to patient's actual temperature (Bld) [Partial pressure] 93 mmHg Normal 85-95 [facility] Comment on above: Order Comment: Speci men Type: ARTERIAL BLOOD SPECIMENOrdering Facility: [facility] Address: [address] [id number] Performed By: #### A LLBG ####[facility] LABCLIA [id number] [address] [address] [place] Oxyhemoglobin (BldA) [Mass fraction] 97 % Normal 95-98 [facility] Comment on above: Order Comment: Speci men Type: ARTERIAL BLOOD SPECIMENOrdering Facility: [facility] Address: [address] [id number] Performed By: #### A LLBG ####[facility] LABCLIA [id number] [place] [id number] [place] pH (Bld) 7.42 [pH] Normal 7.35-7.45 [facility] Comment on above: Order Comment: Speci men Type: ARTERIAL BLOOD SPECIMENOrdering Facility: [facility] Address: [address] [place] [address] Performed By: #### A LLBG ####[facility] LABCLIA [id number] [place] [address] [place] pH adjusted to patient's actual temperature (Bld) 7.42 Normal 7.35-7.45 [facility] Comment on above: Order Comment: Speci men Type: ARTERIAL BLOOD SPECIMENOrdering Facility: [facility] Address: [address] [place] [address] Performed By: #### A LLBG ####[facility] LABIA [id number] [place] [address] [place] Potassium [Moles/Vol] 4.6 mmol/L Normal 3.5-5.0 [facility] Comment on above: Order Comment: Speci men Type: ARTERIAL BLOOD SPECIMENOrdering Facility: [facility] Address: [address] [place] [address] Performed By: #### A LLBG ####[facility] LABCLIA [id number] [place] [address] [place] Sodium [Moles/Vol] 132 mmol/L Low 136-144 [facility] Comment on above: Order Comment: Speci men Type: ARTERIAL BLOOD SPECIMENOrdering Facility: [facility] Address: [address] [place] [address] Performed By: #### A LLBG ####[facility] LABCLIA [id number] [place] [id number] [place] Base excess Calc (Bld) [Moles/Vol] 3 mmol/L High 0-2 [facility] Comment on above: Order Comment: Speci men Type: ARTERIAL BLOOD SPECIMENOrdering Facility: [facility] Address: [address] [place] [address] Performed By: #### A LLBG ####[facility] LABCLIA [id number] [place] [address] [place] Calcium.ionized adjusted to pH 7.4 (BldA) [Moles/Vol] 1.15 mmol/L Normal 1.08-1.30 [facility] Comment on above: Order Comment: Speci men Type: ARTERIAL BLOOD SPECIMENOrdering Facility: [facility] Address: [address] [place] [address] Performed By: #### A LLBG ####[facility] LABCLIA [id number] [place] [address] [place] Carboxyhemoglobin (BldA) [Mass fraction] 1.1 % Normal 0.0-2.0 [facility] Comment on above: Order Comment: Speci men Type: ARTERIAL BLOOD SPECIMENOrdering Facility: [facility] Address: [address] [place] [address] Result Comment: Carb oxyhemoglobin Reference Range for Smokers: 2.0-8.0% Performed By: #### A LLBG ####[facility] LABIA [id number] [place] [address] [place] CO2 (Bld) [Partial pressure] 42 mm Hg Normal 36-46 [facility] Comment on above: Order Comment: Speci men Type: ARTERIAL BLOOD SPECIMENOrdering Facility: [facility] Address: [address] [place] [address] Performed By: #### A LLBG ####[facility] LABCLIA [id number] [place] [id number] [place] CO2 adjusted to patient's actual temperature (Bld) [Partial pressure] 41 mmHg Normal 36-46 [facility] Comment on above: Order Comment: Speci men Type: ARTERIAL BLOOD SPECIMENOrdering Facility: [facility] Address: [address] [place] [address] Performed By: #### A LLBG ####[facility] LABCLIA [id number] [place] [address] [place] Glucose [Mass/Vol] 141 mg/dL High 60-105 [facility] Comment on above: Order Comment: Speci men Type: ARTERIAL BLOOD SPECIMENOrdering Facility: [facility] Address: [address] [place] [address] Performed By: #### A LLBG ####[facility] LABCLIA [id number] [place] [address] [place] HCO3 (Bld) [Moles/Vol] 27 mmol/L High 22-26 [facility] Comment on above: Order Comment: Speci men Type: ARTERIAL BLOOD SPECIMENOrdering Facility: [facility] Address: [address] [place] [address] Performed By: #### A LLBG ####[facility] LABCLIA [id number] [place] [address] [place] Hematocrit (Bld) [Volume fraction] 28.1 % Low 39.0-51.0 [facility] Comment on above: Order Comment: Speci men Type: ARTERIAL BLOOD SPECIMENOrdering Facility: [facility] Address: [address] [place] [address] Performed By: #### A LLBG ####[facility] LABCLIA [id number] [place] [id number] [place] Hemoglobin (Bld) [Mass/Vol] 9.1 g/dL Low 13.0-17.0 [facility] Comment on above: Order Comment: Speci men Type: ARTERIAL BLOOD SPECIMENOrdering Facility: [facility] Address: [address] [place] [address] Performed By: #### A LLBG ####[facility] LABCLIA [id number] [address] [address] [place] Methemoglobin (Bld) [Mass fraction] 1.1 % Normal 0.0-1.5 [facility] Comment on above: Order Comment: Speci men Type: ARTERIAL BLOOD SPECIMENOrdering Facility: [facility] Address: [address] [place], [place] [id number] Performed By: #### A LLBG ####[facility] LABCLIA [id number] [place] [id number] [place] Oxygen (Bld) [Partial pressure] 97 mm Hg High 85-95 [facility] Comment on above: Order Comment: Speci men Type: ARTERIAL BLOOD SPECIMENOrdering Facility: [facility] Address: [address] [place] [address] Performed By: #### A LLBG ####[facility] LABCLIA [id number] [place] [id number] [place] Oxygen adjusted to patient's actual temperature (Bld) [Partial pressure] 95 mmHg Normal 85-95 [facility] Comment on above: Order Comment: Speci men Type: ARTERIAL BLOOD SPECIMENOrdering Facility: [facility] Address: [address] [place], [place] [address] Performed By: #### A LLBG ####[facility] LABCLIA [id number] [address] [address] [place] Oxyhemoglobin (BldA) [Mass fraction] 95 % Normal 95-98 [facility] Comment on above: Order Comment: Speci men Type: ARTERIAL BLOOD SPECIMENOrdering Facility: [facility] Address: [address] [place] [address] Performed By: #### A LLBG ####[facility] LABCLIA [id number] [place] [id number] [place] pH (Bld) 7.42 [pH] Normal 7.35-7.45 [facility] Comment on above: Order Comment: Speci men Type: ARTERIAL BLOOD SPECIMENOrdering Facility: [facility] Address: [address] [place] [address] Performed By: #### A LLBG ####[facility] LABCLIA [id number] [place] [address] [place] pH adjusted to patient's actual temperature (Bld) 7.43 Normal 7.35-7.45 [facility] Comment on above: Order Comment: Speci men Type: ARTERIAL BLOOD SPECIMENOrdering Facility: [facility] Address: [address] [place] [address] Performed By: #### A LLBG ####[facility] LABCLIA [id number] [place] [address] [place] Sodium [Moles/Vol] 132 mmol/L Low 136-144 [facility] Comment on above: Order Comment: Speci men Type: ARTERIAL BLOOD SPECIMENOrdering Facility: [facility] Address: [address] [place] [address] Performed By: #### A LLBG ####[facility] LABCLIA [id number] [place] [id number] [place] Base excess Calc (Bld) [Moles/Vol] 3 mmol/L High 0-2 [facility] Comment on above: Order Comment: Speci men Type: ARTERIAL BLOOD SPECIMENOrdering Facility: [facility] Address: [address] [place] [address] Performed By: #### A LLBG ####[facility] LABCLIA [id number] [place] [id number] [place] Body temperature 98.42 [degF] Normal [facility] Comment on above: Order Comment: Speci men Type: ARTERIAL BLOOD SPECIMENOrdering Facility: [facility] Address: [address] [place] [address] Performed By: #### A LLBG ####[facility] LABCLIA [id number] [place] [id number] [place] Order Comment: Speci men Type: VENOUS BLOOD SPECIMENOrdering Facility: [facility] Address: [address] [place] [address] Performed By: #### 2 4344-4 ####[facility] LABIA [id number] [place] [address] [place] Calcium.ionized (Bld) [Mass/Vol] 1.14 mmol/L Normal 1.08-1.30 [facility] Comment on above: Order Comment: Speci men Type: ARTERIAL BLOOD SPECIMENOrdering Facility: [facility] Address: [address] [place] [address] Performed By: #### A LLBG ####[facility] [id number] [place] [address] [place] Calcium.ionized adjusted to pH 7.4 (BldA) [Moles/Vol] 1.14 mmol/L Normal 1.08-1.30 [facility] Comment on above: Order Comment: Speci men Type: ARTERIAL BLOOD SPECIMENOrdering Facility: [facility] Address: [address] [place] [address] Performed By: #### A LLBG ####[facility] LABIA [id number] [place] [address] [place] Carboxyhemoglobin (BldA) [Mass fraction] 1.7 % Normal 0.0-2.0 [facility] Comment on above: Order Comment: Speci men Type: ARTERIAL BLOOD SPECIMENOrdering Facility: [facility] Address: [address] [place] [address] Result Comment: Carb oxyhemoglobin Reference Range for Smokers: 2.0-8.0% Performed By: #### A LLBG ####[facility] LABIA [id number] [place] [address] [place] CO2 (Bld) [Partial pressure] 44 mm Hg Normal 36-46 [facility] Comment on above: Order Comment: Speci men Type: ARTERIAL BLOOD SPECIMENOrdering Facility: [facility] Address: [address] [place] [address] Performed By: #### A LLBG ####[facility] LABCLIA [id number] [place] [address] [place] CO2 adjusted to patient's actual temperature (Bld) [Partial pressure] 44 mmHg Normal 36-46 [facility] Comment on above: Order Comment: Speci men Type: ARTERIAL BLOOD SPECIMENOrdering Facility: [facility] Address: [address] [place] [address] Performed By: #### A LLBG ####[facility] LABCLIA [id number] [place] [address] [place] Glucose [Mass/Vol] 151 mg/dL High 60-105 [facility] Comment on above: Order Comment: Speci men Type: ARTERIAL BLOOD SPECIMENOrdering Facility: [facility] Address: [address] [place] [address] Performed By: #### A LLBG ####[facility] LABCLIA [id number] [place] [id number] [place] HCO3 (Bld) [Moles/Vol] 27 mmol/L High 22-26 [facility] Comment on above: Order Comment: Speci men Type: ARTERIAL BLOOD SPECIMENOrdering Facility: [facility] Address: [address] [place] [address] Performed By: #### A LLBG ####[facility] LABCLIA [id number] [place] [phone] [place] Hematocrit (Bld) [Volume fraction] 28.1 % Low 39.0-51.0 [facility] Comment on above: Order Comment: Speci men Type: ARTERIAL BLOOD SPECIMENOrdering Facility: [facility] Address: [address] [place] [address] Performed By: #### A LLBG ####[facility] LABCLIA [id number] [place] [phone] [place] Hemoglobin (Bld) [Mass/Vol] 9.1 g/dL Low 13.0-17.0 [facility] Comment on above: Order Comment: Speci men Type: ARTERIAL BLOOD SPECIMENOrdering Facility: [facility] Address: [address] [place] [address] Performed By: #### A LLBG ####[facility] LABCLIA [id number] [place] [address] [place] Lactate [Moles/Vol] 0.6 mmol/L Normal 0.5-2.2 [facility] Comment on above: Order Comment: Speci men Type: ARTERIAL BLOOD SPECIMENOrdering Facility: [facility] Address: [address] [place] [address] Performed By: #### A LLBG ####[facility] LABCLIA [id number] [address] [place] Order Comment: Speci men Type: VENOUS BLOOD SPECIMENOrdering Facility: [facility] Address: [address] [place] [address] Performed By: #### 2 4344-4 ####[facility] LABCLIA [id number] [place] [address] [place] LITERS 3 Liters/min Normal [facility] Comment on above: Order Comment: Speci men Type: ARTERIAL BLOOD SPECIMENOrdering Facility: [facility] Address: [address] [place] [address] Performed By: #### A LLBG ####[facility] LABCLIA [id number] [place] [id number] [place] Order Comment: Speci men Type: VENOUS BLOOD SPECIMENOrdering Facility: [facility] Address: [address] [place] [address] Performed By: #### 2 4344-4 ####[facility] LABCLIA [id number] [place] [phone] [place] Methemoglobin (Bld) [Mass fraction] 1.0 % Normal 0.0-1.5 [facility] Comment on above: Order Comment: Speci men Type: ARTERIAL BLOOD SPECIMENOrdering Facility: [facility] Address: [address] [place] [address] Performed By: #### A LLBG ####[facility] LABCLIA [id number] [place] [address] [place] O2 THERAPY NC = Nasal Cannula Normal [facility] Comment on above: Order Comment: Speci men Type: ARTERIAL BLOOD SPECIMENOrdering Facility: [facility] Address: [address] [place] [address] Performed By: #### A LLBG ####[facility] LABCLIA [id number] [place] [id number] [place] Order Comment: Speci men Type: VENOUS BLOOD SPECIMENOrdering Facility: [facility] Address: [address] [place] [address] Performed By: #### 2 4344-4 ####[facility] LABCLIA [id number] [place] [phone] [place] Oxygen (Bld) [Partial pressure] 103 mm Hg High 85-95 [facility] Comment on above: Order Comment: Speci men Type: ARTERIAL BLOOD SPECIMENOrdering Facility: [facility] Address: [address] [place] [address] Performed By: #### A LLBG ####[facility] LABCLIA [id number] [address] [address] [place] Oxygen adjusted to patient's actual temperature (Bld) [Partial pressure] 103 mmHg High 85-95 [facility] Comment on above: Order Comment: Speci men Type: ARTERIAL BLOOD SPECIMENOrdering Facility: [facility] Address: [address] [place], [place] [id number] Performed By: #### A LLBG ####[facility] LABCLIA [id number] [address] [address] [place] Oxyhemoglobin (BldA) [Mass fraction] 96 % Normal 95-98 [facility] Comment on above: Order Comment: Speci men Type: ARTERIAL BLOOD SPECIMENOrdering Facility: [facility] Address: [address] [place] [address] Performed By: #### A LLBG ####[facility] LABCLIA [id number] [place] [id number] [place] pH (Bld) 7.41 [pH] Normal 7.35-7.45 [facility] Comment on above: Order Comment: Speci men Type: ARTERIAL BLOOD SPECIMENOrdering Facility: [facility] Address: [address] [place] [address] Performed By: #### A LLBG ####[facility] LABCLIA [id number] [place] [address] [place] pH adjusted to patient's actual temperature (Bld) 7.41 Normal 7.35-7.45 [facility] Comment on above: Order Comment: Speci men Type: ARTERIAL BLOOD SPECIMENOrdering Facility: [facility] Address: [address] [place] [address] Performed By: #### A LLBG ####[facility] LABCLIA [id number] [place] [phone] [place] Potassium [Moles/Vol] 4.4 mmol/L Normal 3.5-5.0 [facility] Comment on above: Order Comment: Speci men Type: ARTERIAL BLOOD SPECIMENOrdering Facility: [facility] Address: [address] [place], [place] [address] Performed By: #### A LLBG ####[facility] LABCLIA [id number] [place] [phone] [place] Sodium [Moles/Vol] 132 mmol/L Low 136-144 [facility] Comment on above: Order Comment: Speci men Type: ARTERIAL BLOOD SPECIMENOrdering Facility: [facility] Address: [address] [place] [address] Performed By: #### A LLBG ####[facility] LABCLIA [id number] [place] [address] [place] Base excess Calc (Bld) [Moles/Vol] 2 mmol/L Normal 0-2 [facility] Comment on above: Order Comment: Speci men Type: ARTERIAL BLOOD SPECIMENOrdering Facility: [facility] Address: [address] [place] [address] Performed By: #### A LLBG ####[facility] LABCLIA [id number] [place] [address] [place] Body temperature 98.6 [degF] Normal [facility] Comment on above: Order Comment: Speci men Type: ARTERIAL BLOOD SPECIMENOrdering Facility: [facility] Address: [address] [place] [address] Performed By: #### A LLBG ####[facility] LABCLIA [id number] [place] [address] [place] Order Comment: Speci men Type: VENOUS BLOOD SPECIMENOrdering Facility: [facility] Address: [address] [place] [address] Performed By: #### 2 4344-4 ####[facility] LABCLIA [id number] [place] [address] [place] Calcium.ionized (Bld) [Mass/Vol] 1.14 mmol/L Normal 1.08-1.30 [facility] Comment on above: Order Comment: Speci men Type: ARTERIAL BLOOD SPECIMENOrdering Facility: [facility] Address: [address] [place] [address] Performed By: #### A LLBG ####[facility] LABCLIA [id number] [place] [address] [place] Calcium.ionized adjusted to pH 7.4 (BldA) [Moles/Vol] 1.14 mmol/L Normal 1.08-1.30 [facility] Comment on above: Order Comment: Speci men Type: ARTERIAL BLOOD SPECIMENOrdering Facility: [facility] Address: [address] [place] [address] Performed By: #### A LLBG ####[facility] LABCLIA [id number] [place] [address] [place] Carboxyhemoglobin (BldA) [Mass fraction] 1.6 % Normal 0.0-2.0 [facility] Comment on above: Order Comment: Speci men Type: ARTERIAL BLOOD SPECIMENOrdering Facility: [facility] Address: [address] [place] [address] Result Comment: Carb oxyhemoglobin Reference Range for Smokers: 2.0-8.0% Performed By: #### A LLBG ####[facility] LABCLIA [id number] [place] [address] [place] CO2 (Bld) [Partial pressure] 42 mm Hg Normal 36-46 [facility] Comment on above: Order Comment: Speci men Type: ARTERIAL BLOOD SPECIMENOrdering Facility: [facility] Address: [address] [place] [address] Performed By: #### A LLBG ####[facility] LABCLIA [id number] [place] [address] [place] Glucose [Mass/Vol] 184 mg/dL High 60-105 [facility] Comment on above: Order Comment: Speci men Type: ARTERIAL BLOOD SPECIMENOrdering Facility: [facility] Address: [address] [place] [address] Performed By: #### A LLBG ####[facility] LABCLIA [id number] [place] [address] [place] HCO3 (Bld) [Moles/Vol] 26 mmol/L Normal 22-26 [facility] Comment on above: Order Comment: Speci men Type: ARTERIAL BLOOD SPECIMENOrdering Facility: [facility] Address: [address] [place] [address] Performed By: #### A LLBG ####[facility] LABCLIA [id number] [place] [address] [place] Hematocrit (Bld) [Volume fraction] 28.2 % Low 39.0-51.0 [facility] Comment on above: Order Comment: Speci men Type: ARTERIAL BLOOD SPECIMENOrdering Facility: [facility] Address: [address] [place] [address] Performed By: #### A LLBG ####[facility] LABCLIA [id number] [place] [address] [place] Hemoglobin (Bld) [Mass/Vol] 9.1 g/dL Low 13.0-17.0 [facility] Comment on above: Order Comment: Speci men Type: ARTERIAL BLOOD SPECIMENOrdering Facility: [facility] Address: [address] [place] [address] Performed By: #### A LLBG ####[facility] LABCLIA [id number] [address] Order Comment: Speci men Type: BLOOD SPECIMENOrdering Facility: [facility] Address: [address] [place] [address] Performed By: #### 5 8410-2 ####[facility] LABCLIA [id number] [place] [address] [place] Lactate [Moles/Vol] 1.3 mmol/L Normal 0.5-2.2 [facility] Comment on above: Order Comment: Speci men Type: ARTERIAL BLOOD SPECIMENOrdering Facility: [facility] Address: [address] [place] [address] Performed By: #### A LLBG ####[facility] LABCLIA [id number] [address] [place] Order Comment: Speci men Type: VENOUS BLOOD SPECIMENOrdering Facility: [facility] Address: [address] [place] [address] Performed By: #### 2 4344-4 ####[facility] LABCLIA [id number] [address] [place] [address] [place] LITERS 2 Liters/min Normal [facility] Comment on above: Order Comment: Speci men Type: ARTERIAL BLOOD SPECIMENOrdering Facility: [facility] Address: [address] [place], [place] [address] Performed By: #### A LLBG ####[facility] LABCLIA [id number] [address] [place] [address] [place] Order Comment: Speci men Type: VENOUS BLOOD SPECIMENOrdering Facility: [facility] Address: [address] [place], [place] [address] Performed By: #### 2 4344-4 ####[facility] LABCLIA [id number] [address] [place] [address] [place] Methemoglobin (Bld) [Mass fraction] 1.3 % Normal 0.0-1.5 [facility] Comment on above: Order Comment: Speci men Type: ARTERIAL BLOOD SPECIMENOrdering Facility: [facility] Address: [address] [place], [place] [address] Performed By: #### A LLBG ####[facility] LABCLIA [id number] [address] [address] [place] O2 THERAPY NC = Nasal Cannula Normal [facility] Comment on above: Order Comment: Speci men Type: ARTERIAL BLOOD SPECIMENOrdering Facility: [facility] Address: [address] [place], [place] [address] Performed By: #### A LLBG ####[facility] LABCLIA [id number] [address] [place] [address] [place] Order Comment: Speci men Type: VENOUS BLOOD SPECIMENOrdering Facility: [facility] Address: [address] [place], [place] [address] Performed By: #### 2 4344-4 ####[facility] LABCLIA [id number] [place] [address] [place] Oxygen (Bld) [Partial pressure] 112 mm Hg High 85-95 [facility] Comment on above: Order Comment: Speci men Type: ARTERIAL BLOOD SPECIMENOrdering Facility: [facility] Address: [address] [place] [address] Performed By: #### A LLBG ####[facility] LABIA [id number] [place] [address] [place] Oxyhemoglobin (BldA) [Mass fraction] 96 % Normal 95-98 [facility] Comment on above: Order Comment: Speci men Type: ARTERIAL BLOOD SPECIMENOrdering Facility: [facility] Address: [address] [place] [address] Performed By: #### A LLBG ####[facility] LABIA [id number] [place] [address] [place] pH (Bld) 7.41 [pH] Normal 7.35-7.45 [facility] Comment on above: Order Comment: Speci men Type: ARTERIAL BLOOD SPECIMENOrdering Facility: [facility] Address: [address] [place] [address] Performed By: #### A LLBG ####[facility] LABCLIA [id number] [place] [address] [place] Potassium [Moles/Vol] 4.5 mmol/L Normal 3.5-5.0 [facility] Comment on above: Order Comment: Speci men Type: ARTERIAL BLOOD SPECIMENOrdering Facility: [facility] Address: [address] [place] [address] Performed By: #### A LLBG ####[facility] LABIA [id number] [place] [id number] [place] Sodium [Moles/Vol] 132 mmol/L Low 136-144 [facility] Comment on above: Order Comment: Speci men Type: ARTERIAL BLOOD SPECIMENOrdering Facility: [facility] Address: [address] [place] [address] Performed By: #### A LLBG ####[facility] LABCLIA [id number] [place] [address] [place] Order Comment: Speci men Type: VENOUS BLOOD SPECIMENOrdering Facility: [facility] Address: [address] [place] [address] Performed By: #### 2 4344-4 ####[facility] LABCLIA [id number] [address] [place] CASE MANAGEMon 10-20-2024 CASE MANAGEM Normal [facility] CBC panel Auto (Bld)on 10-20 Erythrocyte distribution width (RBC) [Ratio] 17.2 % High 11.5-15.0 [facility] Comment on above: Order Comment: Speci men Type: BLOOD SPECIMENOrdering Facility: [facility] Address: [address] [place] [address] Performed By: #### 5 8410-2 ####[facility] LABIA [id number] [address] [place] Hematocrit (Bld) [Volume fraction] 27.9 % Low 39.0-51.0 [facility] Comment on above: Order Comment: Speci men Type: BLOOD SPECIMENOrdering Facility: [facility] Address: [address] [place] [address] Performed By: #### 5 8410-2 ####[facility] LABIA [id number] [place] [id number] [place] MCH (RBC) [Entitic mass] 32.3 pg Normal 26.0-34.0 [facility] Comment on above: Order Comment: Speci men Type: BLOOD SPECIMENOrdering Facility: [facility] Address: [address] [place], [place] [address] Performed By: #### 5 8410-2 ####[facility] LABCLIA [id number] [place] [address] [place] MCHC (RBC) [Mass/Vol] 32.6 g/dL Normal 30.5-36.0 [facility] Comment on above: Order Comment: Speci men Type: BLOOD SPECIMENOrdering Facility: [facility] Address: [address] [place] [address] Performed By: #### 5 8410-2 ####[facility] LABIA [id number] [place] [address] [place] MCV (RBC) [Entitic vol] 98.9 fL Normal 80.0-100.0 C [facility] Comment on above: Order Comment: Speci men Type: BLOOD SPECIMENOrdering Facility: [facility] Address: [address] [place] [address] Performed By: #### 5 8410-2 ####[facility] LABIA [id number] [place] [address] [place] Nucleated RBC (Bld) [#/Vol] 10*3/uL Normal <0.01 [facility] Comment on above: Order Comment: Speci men Type: BLOOD SPECIMENOrdering Facility: [facility] Address: [address] [place] [address] Performed By: #### 5 8410-2 ####[facility] LABIA [id number] [place] [address] [place] Platelet mean volume (Bld) [Entitic vol] 12.0 fL Normal 9.0-12.7 [facility] Comment on above: Order Comment: Speci men Type: BLOOD SPECIMENOrdering Facility: [facility] Address: [address] [place] [address] Performed By: #### 5 8410-2 ####[facility] LABCLIA [id number] [address] [address] [place] Platelets (Bld) [#/Vol] 105 10*3/uL Low 150-400 [facility] Comment on above: Order Comment: Speci men Type: BLOOD SPECIMENOrdering Facility: [facility] Address: [address] [place] [address] Performed By: #### 5 8410-2 ####[facility] LABCLIA [id number] [place] [id number] [place] RBC (Bld) [#/Vol] 2.82 10*6/uL Low 4.20-6.00 [facility] Comment on above: Order Comment: Speci men Type: BLOOD SPECIMENOrdering Facility: [facility] Address: [address] [place] [address] Performed By: #### 5 8410-2 ####[facility] LABCLIA [id number] [place] [address] [place] WBC (Bld) [#/Vol] 4.67 10*3/uL Normal 3.70-11.00 [facility] Comment on above: Order Comment: Speci men Type: BLOOD SPECIMENOrdering Facility: [facility] Address: [address] [place] [address] Performed By: #### 5 8410-2 ####[facility] LABCLIA [id number] [place] [id number] [place] CONSULT PROGon 10-20-2024 CONSULT PROG Normal [facility] CONSULT PROG Normal [facility] Comprehensive metabolic 2000 panelon 10-20-2024 Albumin [Mass/Vol] 2.7 g/dL Low 3.9-4.9 [facility] Comment on above: Order Comment: Speci men Type: BLOOD SPECIMENOrdering Facility: [facility] Address: [address] [place] [address] Performed By: #### 2 777-1, 89312-5, 4542-7, 95500-5 ####[facility] LABCLIA [id number] [place] [id number] [place] ALP [Catalytic activity/Vol] 102 U/L Normal 38-113 [facility] Comment on above: Order Comment: Speci men Type: BLOOD SPECIMENOrdering Facility: [facility] Address: [address] [place] [address] Performed By: #### 2 777-1, 80862-0, 4541-7, 14907-8 ####[facility] LABCLIA [id number] [place] [id number] [place] ALT [Catalytic activity/Vol] 11 U/L Normal 10-54 [facility] Comment on above: Order Comment: Speci men Type: BLOOD SPECIMENOrdering Facility: [facility] Address: [address] [place] [address] Performed By: #### 2 777-1, 83076-2, 7, 33998-9 ####[facility] LABCLIA [id number] [place] [id number] [place] Anion gap [Moles/Vol] 10 mmol/L Normal 8-15 [facility] Comment on above: Order Comment: Speci men Type: BLOOD SPECIMENOrdering Facility: [facility] Address: [address] [place] [address] Performed By: #### 2 777-1, 50369-9, 7, 88649-5 ####[facility] LABCLIA [id number] [place] [id number] [place] AST [Catalytic activity/Vol] 18 U/L Normal 14-40 [facility] Comment on above: Order Comment: Speci men Type: BLOOD SPECIMENOrdering Facility: [facility] Address: [address] [place] [address] Performed By: #### 2 777-1, 62635-4, 4541-7, 85841-3 ####[facility] LABCLIA [id number] [address] [address] [place] Bilirubin [Mass/Vol] 0.2 mg/dL Normal 0.2-1.3 [facility] Comment on above: Order Comment: Speci men Type: BLOOD SPECIMENOrdering Facility: [facility] Address: [address] [place] [address] Performed By: #### 2 777-1, 55447-2, 7, 08298-4 ####[facility] LABCLIA [id number] [address] [address] [place] Calcium [Mass/Vol] 8.0 mg/dL Low 8.5-10.2 [facility] Comment on above: Order Comment: Speci men Type: BLOOD SPECIMENOrdering Facility: [facility] Address: [address] [place] [address] Performed By: #### 2 777-1, 53832-8, 7, ####[facility] LABCLIA [id number] [place] [id number] [place] Chloride [Moles/Vol] 100 mmol/L Normal 98-107 [facility] Comment on above: Order Comment: Speci men Type: BLOOD SPECIMENOrdering Facility: [facility] Address: [address] [place] [address] Performed By: #### 2 777-1, 20530-0, 4541-08, 70925-0 ####[facility] LABCLIA [id number] [address] [address] [place] CO2 [Moles/Vol] 23 mmol/L Normal 22-30 [facility] Comment on above: Order Comment: Speci men Type: BLOOD SPECIMENOrdering Facility: [facility] Address: [address] [place] [address] Performed By: #### 2 777-1, 20479-1, 7, 21681-0 ####[facility] LABCLIA [id number] [address] [address] [place] Creatinine [Mass/Vol] 1.51 mg/dL High 0.73-1.22 [facility] Comment on above: Order Comment: Speci men Type: BLOOD SPECIMENOrdering Facility: [facility] Address: [address] [place] [address] Performed By: #### 2 777-1, 17022-0, 4541-7, 29314-0 ####[facility] [id number] [address] [address] [place] eGFRcr SerPlBld CKD-EPI 2020 52 mL/min/1.73m??? Low >=60 [facility] Comment on above: Order Comment: Gini nowak Type: BLOOD SPECIMENOrdering Facility: [facility] Address: [address] [place] [address] Result Comment: Gurwinder mated Glomerular Filtration Rate [...] actual GFR. Performed By: #### 2 777-1, 96460-3, 2-7, 04841-6 ####[facility] LABIA [id number] [address] [address] [place] Glucose [Mass/Vol] 179 mg/dL High 74-99 [facility] Comment on above: Order Comment: Speci men Type: BLOOD SPECIMENOrdering Facility: [facility] Address: [address] [place] [address] Result Comment: The [place] [employer] (ADA) provides guidance for cutoff [...] Standards of Medical Care in Diabetes 2016, [place] [employer]. Diabetes Care. 2016.39(Suppl 1). Performed By: #### 2 777-1, 96614-4, 7, 71574-8 ####[facility] LABCLIA [id number] [address] [address] [place] Potassium [Moles/Vol] 4.7 mmol/L Normal 3.7-5.1 [facility] Comment on above: Order Comment: Speci men Type: BLOOD SPECIMENOrdering Facility: [facility] Address: [address] [place] [address] Performed By: #### 2 777-1, 70090-8, 4541-08, ####[facility] LABCLIA [id number] [place] [id number] [place] Protein [Mass/Vol] 5.2 g/dL Low 6.3-8.0 [facility] Comment on above: Order Comment: Speci men Type: BLOOD SPECIMENOrdering Facility: [facility] Address: [address] [place] [address] Performed By: #### 2 777-1, 52165-8, 4541-08, ####[facility] LABCLIA [id number] [place] [id number] [place] Sodium [Moles/Vol] 133 mmol/L Low 136-144 [facility] Comment on above: Order Comment: Speci men Type: BLOOD SPECIMENOrdering Facility: [facility] Address: [address] [place] [address] Performed By: #### 2 777-1, 52643-9, 7, 53091-9 ####[facility] LABCLIA [id number] [place] [address] [place] Urea nitrogen [Mass/Vol] 23 mg/dL Normal 9-24 [facility] Comment on above: Order Comment: Gini nowak Type: BLOOD SPECIMENOrdering Facility: [facility] Address: [address] [place] [address] Performed By: #### 2 777-1, 80346-3, 4542-7, 10059-3 ####[facility] [id number] [place] [address] [place] Fact Xa PPP-aCncon 5 Coagulation factor X activated act Coag Qn (PPP) 0.51 IU/mL High <0.10 [facility] Comment on above: Order Comment: Gini nowak Type: BLOOD SPECIMENOrdering Facility: [facility] Address: [address] [place] [address] Result Comment: The recommended therapeutic range for treatment of venous and arterial thrombosis with intravenous unfractionated heparin is an anti Xa activity level of 0.3 to 0.7 IU/mL. In patients with concomitant therapy with thrombolytic agents and/or platelet glycoprotein IIb/IIIa antagonists, the recommended therapeutic range is an anti Xa activity level of 0.2 to 0.5 IU/mL. Performed By: #### 3 217-7 ####[facility] [id number] [place] [address] [place] Coagulation factor X activated act Coag Qn (PPP) 0.51 IU/mL High <0.10 [facility] Comment on above: Order Comment: Gini nowak Type: BLOOD SPECIMENOrdering Facility: [facility] Address: [address] [place] [address] Result Comment: The recommended therapeutic range for treatment of venous and arterial thrombosis with intravenous unfractionated heparin is an anti Xa activity level of 0.3 to 0.7 IU/mL. In patients with concomitant therapy with thrombolytic agents and/or platelet glycoprotein IIb/IIIa antagonists, the recommended therapeutic range is an anti Xa activity level of 0.2 to 0.5 IU/mL. Performed By: #### 3 4528-0, 3217-7 ####[facility] LABCLIA [id number] [address], [place] [address] [place] Gas + CO Pnl BldVon 10-21-19 25 Body temperature 98.24 [degF] Normal [facility] Comment on above: Order Comment: Speci men Type: VENOUS BLOOD SPECIMENOrdering Facility: [facility] Address: [address] [place] [address] Performed By: #### 2 4344-4 ####[facility] LABCLIA [id number] [address], [place] [address] [place] Order Comment: Speci men Type: ARTERIAL BLOOD SPECIMENOrdering Facility: [facility] Address: [address] [place] [address] Performed By: #### A LLBG ####[facility] LABCLIA [id number] [address], [facility]95 [place] HCO3 (Bld) [Moles/Vol] 27 mmol/L High 22-26 Cl [facility] Comment on above: Order Comment: Speci men Type: VENOUS BLOOD SPECIMENOrdering Facility: [facility] Address: [address] [place] [address] Performed By: #### 2 4344-4 ####[facility] LABCLIA [id number] [address], [facility]95 [place] Order Comment: Speci men Type: ARTERIAL BLOOD SPECIMENOrdering Facility: [facility] Address: [address] [place] [address] Performed By: #### A LLBG ####[facility] LABCLIA [id number] [place] [address] [place] LITERS 3 Liters/min Normal [facility] Comment on above: Order Comment: Speci men Type: VENOUS BLOOD SPECIMENOrdering Facility: [facility] Address: [address] [place] [address] Performed By: #### 2 4344-4 ####[facility] LABCLIA [id number] [address] [address] [place] Order Comment: Speci men Type: ARTERIAL BLOOD SPECIMENOrdering Facility: [facility] Address: [address] [place] [id number] Performed By: #### A LLBG ####[facility] LABCLIA [id number] [address] [place] [address] [place] O2 THERAPY NC = Nasal Cannula Normal [facility] Comment on above: Order Comment: Speci men Type: VENOUS BLOOD SPECIMENOrdering Facility: [facility] Address: [address] [place] [address] Performed By: #### 2 4344-4 ####[facility] LABCLIA [id number] [place] [id number] [place] Order Comment: Speci men Type: ARTERIAL BLOOD SPECIMENOrdering Facility: [facility] Address: [address] [place], [place] [address] Performed By: #### A LLBG ####[facility] LABCLIA [id number] [place] [id number] [place] Sodium [Moles/Vol] 134 mmol/L Low 136-144 [facility] Comment on above: Order Comment: Speci men Type: VENOUS BLOOD SPECIMENOrdering Facility: [facility] Address: [address] [place] [id number] Performed By: #### 2 4344-4 ####[facility] LABCLIA [id number] [place] [id number] [place] Order Comment: Speci men Type: ARTERIAL BLOOD SPECIMENOrdering Facility: [facility] Address: [address] [place] [id number] Performed By: #### A LLBG ####[facility] LABCLIA [id number] [address] [address] [place] Body temperature 97.88 [degF] Normal [facility] Comment on above: Order Comment: Speci men Type: VENOUS BLOOD SPECIMENOrdering Facility: [facility] Address: [address] [place] [address] Performed By: #### 2 4344-4 ####[facility] LABCLIA [id number] [place] [id number] [place] Order Comment: Speci men Type: ARTERIAL BLOOD SPECIMENOrdering Facility: [facility] Address: [address] [place] [address] Performed By: #### A LLBG ####[facility] LABCLIA [id number] [place] [address] [place] Calcium.ionized (Bld) [Mass/Vol] 1.14 mmol/L Normal 1.08-1.30 [facility] Comment on above: Order Comment: Speci men Type: VENOUS BLOOD SPECIMENOrdering Facility: [facility] Address: [address] [place] [address] Performed By: #### 2 4344-4 ####[facility] LABCLIA [id number] [address] [place] Order Comment: Speci men Type: ARTERIAL BLOOD SPECIMENOrdering Facility: [facility] Address: [address] [place] [address] Performed By: #### A LLBG ####[facility] LABCLIA [id number] [place] [id number] [place] Lactate [Moles/Vol] 0.7 mmol/L Normal 0.5-2.2 [facility] Comment on above: Order Comment: Speci men Type: VENOUS BLOOD SPECIMENOrdering Facility: [facility] Address: [address] [place], [place] [address] Performed By: #### 2 4344-4 ####[facility] LABCLIA [id number] [place] [id number] [facility] [place] Order Comment: Speci men Type: ARTERIAL BLOOD SPECIMENOrdering Facility: [facility] Address: [address] [place] [address] Performed By: #### A LLBG ####[facility] LABCLIA [id number] [address] [address] [place] O2 THERAPY NC = Nasal Cannula Normal [facility] Comment on above: Order Comment: Speci men Type: VENOUS BLOOD SPECIMENOrdering Facility: [facility] Address: [address] [place] [address] Performed By: #### 2 4344-4 ####[facility] LABCLIA [id number] [address] [place] Order Comment: Speci men Type: ARTERIAL BLOOD SPECIMENOrdering Facility: [facility] Address: [address] [place] [address] Performed By: #### A LLBG ####[facility] LABCLIA [id number] [place] [address] [place] Potassium [Moles/Vol] 4.6 mmol/L Normal 3.5-5.0 [facility] Comment on above: Order Comment: Speci men Type: VENOUS BLOOD SPECIMENOrdering Facility: [facility] Address: [address] [place] [address] Performed By: #### 2 4344-4 ####[facility] LABCLIA [id number] [place] [id number] [facility] Order Comment: Speci men Type: ARTERIAL BLOOD SPECIMENOrdering Facility: [facility] Address: [address] [place] [address] Performed By: #### A LLBG ####[facility] LABCLIA [id number] [address] [address] [place] Gas and Carbon monoxide pane l (BldV)on 10-20-2024 Base excess Calc (BldV) [Moles/Vol] 1 mmol/L Normal 0-2 [facility] Comment on above: Order Comment: Speci men Type: VENOUS BLOOD SPECIMENOrdering Facility: [facility] Address: [address] [place] [address] Performed By: #### 2 4344-4 ####[facility] LABCLIA [id number] [place] [address] [place] Calcium.ionized (Bld) [Mass/Vol] 1.16 mmol/L Normal 1.08-1.30 [facility] Comment on above: Order Comment: Speci men Type: VENOUS BLOOD SPECIMENOrdering Facility: [facility] Address: [address] [place] [address] Performed By: #### 2 4344-4 ####[facility] LABCLIA [id number] [place] [address] [place] Calcium.ionized adjusted to pH 7.4 (BldA) [Moles/Vol] 1.12 mmol/L Normal 1.08-1.30 [facility] Comment on above: Order Comment: Speci men Type: VENOUS BLOOD SPECIMENOrdering Facility: [facility] Address: [address] [place] [address] Performed By: #### 2 4344-4 ####[facility] LABIA [id number] [place] [address] [place] Carboxyhemoglobin (BldV) [Mass fraction] 1.3 % Normal 0.0-2.0 [facility] Comment on above: Order Comment: Speci men Type: VENOUS BLOOD SPECIMENOrdering Facility: [facility] Address: [address] [place] [address] Result Comment: Carb oxyhemoglobin Reference Range for Smokers: 2.0-8.0% Performed By: #### 2 4344-4 ####[facility] LABCLIA [id number] [place] [address] [place] CO2 (BldV) [Partial pressure] 52 mm[Hg] Normal 42-55 [facility] Comment on above: Order Comment: Speci men Type: VENOUS BLOOD SPECIMENOrdering Facility: [facility] Address: [address] [place] [address] Performed By: #### 2 4344-4 ####[facility] LABCLIA [id number] [address] [place] [address] [place] CO2 adjusted to patient's actual temperature (BldV) [Partial pressure] 51 mmHg Normal 42-55 [facility] Comment on above: Order Comment: Speci men Type: VENOUS BLOOD SPECIMENOrdering Facility: [facility] Address: [address] [place] [address] Performed By: #### 2 4344-4 ####[facility] LABCLIA [id number] [address] [place] [address] [place] Glucose [Mass/Vol] 221 mg/dL High 60-105 [facility] Comment on above: Order Comment: Speci men Type: VENOUS BLOOD SPECIMENOrdering Facility: [facility] Address: [address] [place] [address] Performed By: #### 2 4344-4 ####[facility] LABCLIA [id number] [address] [address] [place] Hematocrit (Bld) [Volume fraction] 27.4 % Low 39.0-51.0 [facility] Comment on above: Order Comment: Speci men Type: VENOUS BLOOD SPECIMENOrdering Facility: [facility] Address: [address] [place] [address] Performed By: #### 2 4344-4 ####[facility] LABCLIA [id number] [place] [id number] [place] Hemoglobin (Bld) [Mass/Vol] 8.8 g/dL Low 13.0-17.0 [facility] Comment on above: Order Comment: Speci men Type: VENOUS BLOOD SPECIMENOrdering Facility: [facility] Address: [address] [place] [address] Performed By: #### 2 4344-4 ####[facility] LABCLIA [id number] [address] [address] [place] Lactate [Moles/Vol] 2.2 mmol/L Normal 0.5-2.2 [facility] Comment on above: Order Comment: Speci men Type: VENOUS BLOOD SPECIMENOrdering Facility: [facility] Address: [address] [place], [place] [address] Performed By: #### 2 4344-4 ####[facility] LABCLIA [id number] [place] [id number] [place] Methemoglobin (Bld) [Mass fraction] 1.6 % High 0.0-1.5 [facility] Comment on above: Order Comment: Speci men Type: VENOUS BLOOD SPECIMENOrdering Facility: [facility] Address: [address] [place], [place] [address] Performed By: #### 2 4344-4 ####[facility] LABCLIA [id number] [address] [address] [place] Oxygen (BldV) [Partial pressure] 42 mm[Hg] Normal 35-45 [facility] Comment on above: Order Comment: Speci men Type: VENOUS BLOOD SPECIMENOrdering Facility: [facility] Address: [address] [place], [place] [address] Performed By: #### 2 4344-4 ####[facility] LABCLIA [id number] [address] [address] [place] Oxygen adjusted to patient's actual temperature (BldV) [Partial pressure] 41 mmHg Normal 35-45 [facility] Comment on above: Order Comment: Speci men Type: VENOUS BLOOD SPECIMENOrdering Facility: [facility] Address: [address] [place] [address] Performed By: #### 2 4344-4 ####[facility] LABCLIA [id number] [address] [address] [place] Oxygen saturation in Venous blood 69 % Normal 60-85 [facility] Comment on above: Order Comment: Speci men Type: VENOUS BLOOD SPECIMENOrdering Facility: [facility] Address: [address] [place] [address] Performed By: #### 2 4344-4 ####[facility] LABCLIA [id number] [address] [address] [place] Oxyhemoglobin (BldV) [Mass fraction] 67 % Normal 60-85 [facility] Comment on above: Order Comment: Speci men Type: VENOUS BLOOD SPECIMENOrdering Facility: [facility] Address: [address] [place], [place] [address] Performed By: #### 2 4344-4 ####[facility] LABCLIA [id number] [place] [id number] [place] pH (BldV) 7.34 [pH] Normal 7.32-7.42 [facility] Comment on above: Order Comment: Speci men Type: VENOUS BLOOD SPECIMENOrdering Facility: [facility] Address: [address] [place], [place] [address] Performed By: #### 2 4344-4 ####[facility] LABCLIA [id number] [place] [address] [place] pH adjusted to patient's actual temperature (BldV) 7.34 Normal 7.32-7.42 [facility] Comment on above: Order Comment: Speci men Type: VENOUS BLOOD SPECIMENOrdering Facility: [facility] Address: [address] [place], [place] [address] Performed By: #### 2 4344-4 ####[facility] LABCLIA [id number] [place] [id number] [place] Potassium [Moles/Vol] 4.2 mmol/L Normal 3.5-5.0 [facility] Comment on above: Order Comment: Speci men Type: VENOUS BLOOD SPECIMENOrdering Facility: [facility] Address: [address] [place] [address] Performed By: #### 2 4344-4 ####[facility] LABIA [id number] [place] [address] [place] Base excess Calc (BldV) [Moles/Vol] 3 mmol/L High 0-2 [facility] Comment on above: Order Comment: Speci men Type: VENOUS BLOOD SPECIMENOrdering Facility: [facility] Address: [address] [place] [address] Performed By: #### 2 4344-4 ####[facility] [id number] [place] [address] [place] Calcium.ionized (Bld) [Mass/Vol] 1.14 mmol/L Normal 1.08-1.30 [facility] Comment on above: Order Comment: Speci men Type: VENOUS BLOOD SPECIMENOrdering Facility: [facility] Address: [address] [place] [address] Performed By: #### 2 4344-4 ####[facility] [id number] [place] [address] [place] Calcium.ionized adjusted to pH 7.4 (BldA) [Moles/Vol] 1.12 mmol/L Normal 1.08-1.30 [facility] Comment on above: Order Comment: Speci men Type: VENOUS BLOOD SPECIMENOrdering Facility: [facility] Address: [address] [place] [address] Performed By: #### 2 4344-4 ####[facility] [id number] [place] [address] [place] Carboxyhemoglobin (BldV) [Mass fraction] 1.0 % Normal 0.0-2.0 [facility] Comment on above: Order Comment: Speci men Type: VENOUS BLOOD SPECIMENOrdering Facility: [facility] Address: [address] [place] [address] Result Comment: Carb oxyhemoglobin Reference Range for Smokers: 2.0-8.0% Performed By: #### 2 4344-4 ####[facility] LABCLIA [id number] [address] [address] [place] CO2 (BldV) [Partial pressure] 49 mm[Hg] Normal 42-55 [facility] Comment on above: Order Comment: Speci men Type: VENOUS BLOOD SPECIMENOrdering Facility: [facility] Address: [address] [place] [address] Performed By: #### 2 4344-4 ####[facility] LABCLIA [id number] [address] [place] CO2 adjusted to patient's actual temperature (BldV) [Partial pressure] 48 mmHg Normal 42-55 [facility] Comment on above: Order Comment: Speci men Type: VENOUS BLOOD SPECIMENOrdering Facility: [facility] Address: [address] [place] [address] Performed By: #### 2 4344-4 ####[facility] LABCLIA [id number] [place] [id number] [place] Glucose [Mass/Vol] 272 mg/dL High 60-105 [facility] Comment on above: Order Comment: Speci men Type: VENOUS BLOOD SPECIMENOrdering Facility: [facility] Address: [address] [place], [place] [address] Performed By: #### 2 4344-4 ####[facility] LABCLIA [id number] [address] [address] [place] HCO3 (Bld) [Moles/Vol] 28 mmol/L Normal 24-28 [facility] Comment on above: Order Comment: Speci men Type: VENOUS BLOOD SPECIMENOrdering Facility: [facility] Address: [address] [place] [address] Performed By: #### 2 4344-4 ####[facility] LABCLIA [id number] [address] [address] [place] Hematocrit (Bld) [Volume fraction] 28.3 % Low 39.0-51.0 [facility] Comment on above: Order Comment: Speci men Type: VENOUS BLOOD SPECIMENOrdering Facility: [facility] Address: [address] [place] [address] Performed By: #### 2 4344-4 ####[facility] LABCLIA [id number] [place] [address] [place] Hemoglobin (Bld) [Mass/Vol] 9.1 g/dL Low 13.0-17.0 [facility] Comment on above: Order Comment: Speci men Type: VENOUS BLOOD SPECIMENOrdering Facility: [facility] Address: [address] [place] [address] Performed By: #### 2 4344-4 ####[facility] LABCLIA [id number] [place] [address] [place] Lactate [Moles/Vol] 1.2 mmol/L Normal 0.5-2.2 [facility] Comment on above: Order Comment: Speci men Type: VENOUS BLOOD SPECIMENOrdering Facility: [facility] Address: [address] [place] [address] Performed By: #### 2 4344-4 ####[facility] LABIA [id number] [place] [address] [place] Methemoglobin (Bld) [Mass fraction] 0.7 % Normal 0.0-1.5 [facility] Comment on above: Order Comment: Speci men Type: VENOUS BLOOD SPECIMENOrdering Facility: [facility] Address: [address] [place] [address] Performed By: #### 2 4344-4 ####[facility] LABCLIA [id number] [place] [id number] [place] Oxygen (BldV) [Partial pressure] 38 mm[Hg] Normal 35-45 [facility] Comment on above: Order Comment: Speci men Type: VENOUS BLOOD SPECIMENOrdering Facility: [facility] Address: [address] [place] [address] Performed By: #### 2 4344-4 ####[facility] LABCLIA [id number] [address] [address] [place] Oxygen adjusted to patient's actual temperature (BldV) [Partial pressure] 37 mmHg Normal 35-45 [facility] Comment on above: Order Comment: Speci men Type: VENOUS BLOOD SPECIMENOrdering Facility: [facility] Address: [address] [place], [place] [address] Performed By: #### 2 4344-4 ####[facility] LABCLIA [id number] [place] [id number] [place] Oxygen saturation in Venous blood 63 % Normal 60-85 [facility] Comment on above: Order Comment: Speci men Type: VENOUS BLOOD SPECIMENOrdering Facility: [facility] Address: [address] [place], [place] [address] Performed By: #### 2 4344-4 ####[facility] LABCLIA [id number] [place] [address] [place] Oxyhemoglobin (BldV) [Mass fraction] 62 % Normal 60-85 [facility] Comment on above: Order Comment: Speci men Type: VENOUS BLOOD SPECIMENOrdering Facility: [facility] Address: [address] [place] [id number] Performed By: #### 2 4344-4 ####[facility] LABCLIA [id number] [address] [address] [place] pH (BldV) 7.38 [pH] Normal 7.32-7.42 [facility] Comment on above: Order Comment: Speci men Type: VENOUS BLOOD SPECIMENOrdering Facility: [facility] Address: [address] [place], [place] [address] Performed By: #### 2 4344-4 ####[facility] LABCLIA [id number] [place] [address] [place] pH adjusted to patient's actual temperature (BldV) 7.39 Normal 7.32-7.42 [facility] Comment on above: Order Comment: Speci men Type: VENOUS BLOOD SPECIMENOrdering Facility: [facility] Address: [address] [place] [address] Performed By: #### 2 4344-4 ####[facility] LABCLIA [id number] [place] [address] [place] Potassium [Moles/Vol] 4.5 mmol/L Normal 3.5-5.0 [facility] Comment on above: Order Comment: Speci men Type: VENOUS BLOOD SPECIMENOrdering Facility: [facility] Address: [address] [place] [address] Performed By: #### 2 4344-4 ####[facility] LABIA [id number] [place] [address] [place] Sodium [Moles/Vol] 131 mmol/L Low 136-144 [facility] Comment on above: Order Comment: Speci men Type: VENOUS BLOOD SPECIMENOrdering Facility: [facility] Address: [address] [place] [address] Performed By: #### 2 4344-4 ####[facility] LABIA [id number] [place] [address] [place] Base excess Calc (BldV) [Moles/Vol] 4 mmol/L High 0-2 [facility] Comment on above: Order Comment: Speci men Type: VENOUS BLOOD SPECIMENOrdering Facility: [facility] Address: [address] [place] [address] Performed By: #### 2 4344-4 ####[facility] LABCLIA [id number] [place] [address] [place] Calcium.ionized adjusted to pH 7.4 (BldA) [Moles/Vol] 1.13 mmol/L Normal 1.08-1.30 [facility] Comment on above: Order Comment: Speci men Type: VENOUS BLOOD SPECIMENOrdering Facility: [facility] Address: [address] [place] [address] Performed By: #### 2 4344-4 ####[facility] LABCLIA [id number] [address] [address] [place] Carboxyhemoglobin (BldV) [Mass fraction] 1.2 % Normal 0.0-2.0 [facility] Comment on above: Order Comment: Speci men Type: VENOUS BLOOD SPECIMENOrdering Facility: [facility] Address: [address] [place] [address] Result Comment: Carb oxyhemoglobin Reference Range for Smokers: 2.0-8.0% Performed By: #### 2 4344-4 ####[facility] LABCLIA [id number] [address] [address] [place] CO2 (BldV) [Partial pressure] 50 mm[Hg] Normal 42-55 [facility] Comment on above: Order Comment: Speci men Type: VENOUS BLOOD SPECIMENOrdering Facility: [facility] Address: [address] [place] [address] Performed By: #### 2 4344-4 ####[facility] LABCLIA [id number] [address] [address] [place] CO2 adjusted to patient's actual temperature (BldV) [Partial pressure] 49 mmHg Normal 42-55 [facility] Comment on above: Order Comment: Speci men Type: VENOUS BLOOD SPECIMENOrdering Facility: [facility] Address: [address] [place], [place] [address] Performed By: #### 2 4344-4 ####[facility] LABCLIA [id number] [facility] [address] [address] [place] Glucose [Mass/Vol] 161 mg/dL High 60-105 [facility] Comment on above: Order Comment: Speci men Type: VENOUS BLOOD SPECIMENOrdering Facility: [facility] Address: [address] [place] [address] Performed By: #### 2 4344-4 ####[facility] LABCLIA [id number] [place] [id number] [place] HCO3 (Bld) [Moles/Vol] 29 mmol/L High 24-28 [facility] Comment on above: Order Comment: Speci men Type: VENOUS BLOOD SPECIMENOrdering Facility: [facility] Address: [address] [place] [address] Performed By: #### 2 4344-4 ####[facility] LABCLIA [id number] [place] [address] [place] Hematocrit (Bld) [Volume fraction] 28.4 % Low 39.0-51.0 [facility] Comment on above: Order Comment: Speci men Type: VENOUS BLOOD SPECIMENOrdering Facility: [facility] Address: [address] [place] [address] Performed By: #### 2 4344-4 ####[facility] LABCLIA [id number] [place] [address] [place] Hemoglobin (Bld) [Mass/Vol] 9.2 g/dL Low 13.0-17.0 [facility] Comment on above: Order Comment: Speci men Type: VENOUS BLOOD SPECIMENOrdering Facility: [facility] Address: [address] [place] [address] Performed By: #### 2 4344-4 ####[facility] LABCLIA [id number] [place] [id number] [place] Methemoglobin (Bld) [Mass fraction] 1.9 % High 0.0-1.5 [facility] Comment on above: Order Comment: Speci men Type: VENOUS BLOOD SPECIMENOrdering Facility: [facility] Address: [address] [place], [place] [address] Performed By: #### 2 4344-4 ####[facility] LABCLIA [id number] [address] [address] [place] Oxygen (BldV) [Partial pressure] 37 mm[Hg] Normal 35-45 [facility] Comment on above: Order Comment: Speci men Type: VENOUS BLOOD SPECIMENOrdering Facility: [facility] Address: [address] [place], [place] [address] Performed By: #### 2 4344-4 ####[facility] LABCLIA [id number] [address] [address] [place] Oxygen adjusted to patient's actual temperature (BldV) [Partial pressure] 36 mmHg Normal 35-45 [facility] Comment on above: Order Comment: Speci men Type: VENOUS BLOOD SPECIMENOrdering Facility: [facility] Address: [address] [place] [address] Performed By: #### 2 4344-4 ####[facility] LABCLIA [id number] [address] [address] [place] Oxygen saturation in Venous blood 64 % Normal 60-85 [facility] Comment on above: Order Comment: Speci men Type: VENOUS BLOOD SPECIMENOrdering Facility: [facility] Address: [address] [place] [address] Performed By: #### 2 4344-4 ####[facility] LABCLIA [id number] [address] [address] [place] Oxyhemoglobin (BldV) [Mass fraction] 62 % Normal 60-85 [facility] Comment on above: Order Comment: Speci men Type: VENOUS BLOOD SPECIMENOrdering Facility: [facility] Address: [address] [place], [place] [address] Performed By: #### 2 4344-4 ####[facility] LABCLIA [id number] [address] [address] [place] pH (BldV) 7.38 [pH] Normal 7.32-7.42 [facility] Comment on above: Order Comment: Speci men Type: VENOUS BLOOD SPECIMENOrdering Facility: [facility] Address: [address] [place] [address] Performed By: #### 2 4344-4 ####[facility] LABCLIA [id number] [place] [address] [place] pH adjusted to patient's actual temperature (BldV) 7.39 Normal 7.32-7.42 [facility] Comment on above: Order Comment: Speci men Type: VENOUS BLOOD SPECIMENOrdering Facility: [facility] Address: [address] [place] [address] Performed By: #### 2 4344-4 ####[facility] LABIA [id number] [place] [address] [place] Sodium [Moles/Vol] 131 mmol/L Low 136-144 [facility] Comment on above: Order Comment: Speci men Type: VENOUS BLOOD SPECIMENOrdering Facility: [facility] Address: [address] [place] [address] Performed By: #### 2 4344-4 ####[facility] LABIA [id number] [place] [address] [place] Base excess Calc (BldV) [Moles/Vol] 3 mmol/L High 0-2 [facility] Comment on above: Order Comment: Speci men Type: VENOUS BLOOD SPECIMENOrdering Facility: [facility] Address: [address] [place] [address] Performed By: #### 2 4344-4 ####[facility] LABIA [id number] [place] [id number] [place] Calcium.ionized (Bld) [Mass/Vol] 1.10 mmol/L Normal 1.08-1.30 [facility] Comment on above: Order Comment: Speci men Type: VENOUS BLOOD SPECIMENOrdering Facility: [facility] Address: [address] [place] [address] Performed By: #### 2 4344-4 ####[facility] LABCLIA [id number] [address] [address] [place] Calcium.ionized adjusted to pH 7.4 (BldA) [Moles/Vol] 1.10 mmol/L Normal 1.08-1.30 [facility] Comment on above: Order Comment: Speci men Type: VENOUS BLOOD SPECIMENOrdering Facility: [facility] Address: [address] [place] [address] Performed By: #### 2 4344-4 ####[facility] LABIA [id number] [place] [address] [place] Carboxyhemoglobin (BldV) [Mass fraction] 1.0 % Normal 0.0-2.0 [facility] Comment on above: Order Comment: Speci men Type: VENOUS BLOOD SPECIMENOrdering Facility: [facility] Address: [address] [place] [address] Result Comment: Carb oxyhemoglobin Reference Range for Smokers: 2.0-8.0% Performed By: #### 2 4344-4 ####[facility] LABIA [id number] [place] [address] [place] CO2 (BldV) [Partial pressure] 48 mm[Hg] Normal 42-55 [facility] Comment on above: Order Comment: Speci men Type: VENOUS BLOOD SPECIMENOrdering Facility: [facility] Address: [address] [place] [address] Performed By: #### 2 4344-4 ####[facility] LABCLIA [id number] [place] [id number] [place] CO2 adjusted to patient's actual temperature (BldV) [Partial pressure] 47 mmHg Normal 42-55 [facility] Comment on above: Order Comment: Speci men Type: VENOUS BLOOD SPECIMENOrdering Facility: [facility] Address: [address] [place] [address] Performed By: #### 2 4344-4 ####[facility] LABCLIA [id number] [address] [address] [place] Glucose [Mass/Vol] 161 mg/dL High 60-105 [facility] Comment on above: Order Comment: Speci men Type: VENOUS BLOOD SPECIMENOrdering Facility: [facility] Address: [address] [place] [address] Performed By: #### 2 4344-4 ####[facility] LABCLIA [id number] [place] [id number] [place] HCO3 (Bld) [Moles/Vol] 28 mmol/L Normal 24-28 [facility] Comment on above: Order Comment: Speci men Type: VENOUS BLOOD SPECIMENOrdering Facility: [facility] Address: [address] [place] [address] Performed By: #### 2 4344-4 ####[facility] LABCLIA [id number] [place] [address] [place] Hematocrit (Bld) [Volume fraction] 27.8 % Low 39.0-51.0 [facility] Comment on above: Order Comment: Speci men Type: VENOUS BLOOD SPECIMENOrdering Facility: [facility] Address: [address] [place] [address] Performed By: #### 2 4344-4 ####[facility] LABCLIA [id number] [place] [id number] [place] Hemoglobin (Bld) [Mass/Vol] 9.0 g/dL Low 13.0-17.0 [facility] Comment on above: Order Comment: Speci men Type: VENOUS BLOOD SPECIMENOrdering Facility: [facility] Address: [address] [place] [address] Performed By: #### 2 4344-4 ####[facility] [facility] [id number] [address] [address] [place] Methemoglobin (Bld) [Mass fraction] 1.3 % Normal 0.0-1.5 [facility] Comment on above: Order Comment: Speci men Type: VENOUS BLOOD SPECIMENOrdering Facility: [facility] Address: [address] [place] [address] Performed By: #### 2 4344-4 ####[facility] LABCLIA [id number] [address] [address] [place] Oxygen (BldV) [Partial pressure] 35 mm[Hg] Normal 35-45 [facility] Comment on above: Order Comment: Speci men Type: VENOUS BLOOD SPECIMENOrdering Facility: [facility] Address: [address] [place], [place] [address] Performed By: #### 2 4344-4 ####[facility] LABCLIA [id number] [address] [address] [place] Oxygen adjusted to patient's actual temperature (BldV) [Partial pressure] 34 mmHg Low 35-45 [facility] Comment on above: Order Comment: Speci men Type: VENOUS BLOOD SPECIMENOrdering Facility: [facility] Address: [address] [place], [place] [address] Performed By: #### 2 4344-4 ####[facility] LABCLIA [id number] [address] [address] [place] Oxygen saturation in Venous blood 59 % Low 60-85 [facility] Comment on above: Order Comment: Speci men Type: VENOUS BLOOD SPECIMENOrdering Facility: [facility] Address: [address] [place] [address] Performed By: #### 2 4344-4 ####[facility] LABCLIA [id number] [address] [address] [place] Oxyhemoglobin (BldV) [Mass fraction] 58 % Low 60-85 [facility] Comment on above: Order Comment: Speci men Type: VENOUS BLOOD SPECIMENOrdering Facility: [facility] Address: [address] [place] [address] Performed By: #### 2 4344-4 ####[facility] LABCLIA [id number] [address] [address] [place] pH (BldV) 7.39 [pH] Normal 7.32-7.42 [facility] Comment on above: Order Comment: Speci men Type: VENOUS BLOOD SPECIMENOrdering Facility: [facility] Address: [address] [place] [address] Performed By: #### 2 4344-4 ####[facility] LABIA [id number] [place] [address] [place] pH adjusted to patient's actual temperature (BldV) 7.39 Normal 7.32-7.42 [facility] Comment on above: Order Comment: Speci men Type: VENOUS BLOOD SPECIMENOrdering Facility: [facility] Address: [address] [place] [address] Performed By: #### 2 4344-4 ####[facility] LABIA [id number] [place] [address] [place] Potassium [Moles/Vol] 4.3 mmol/L Normal 3.5-5.0 [facility] Comment on above: Order Comment: Speci men Type: VENOUS BLOOD SPECIMENOrdering Facility: [facility] Address: [address] [place] [address] Performed By: #### 2 4344-4 ####[facility] LABIA [id number] [place] [id number] [place] Sodium [Moles/Vol] 131 mmol/L Low 136-144 [facility] Comment on above: Order Comment: Speci men Type: VENOUS BLOOD SPECIMENOrdering Facility: [facility] Address: [address] [place] [address] Performed By: #### 2 4344-4 ####[facility] LABIA [id number] [place] [id number] [place] Base excess Calc (BldV) [Moles/Vol] 2 mmol/L Normal 0-2 [facility] Comment on above: Order Comment: Speci men Type: VENOUS BLOOD SPECIMENOrdering Facility: [facility] Address: [address] [place] [address] Performed By: #### 2 4344-4 ####[facility] LABCLIA [id number] [place] [address] [place] Calcium.ionized (Bld) [Mass/Vol] 1.11 mmol/L Normal 1.08-1.30 [facility] Comment on above: Order Comment: Speci men Type: VENOUS BLOOD SPECIMENOrdering Facility: [facility] Address: [address] [place] [address] Performed By: #### 2 4344-4 ####[facility] LABCLIA [id number] [place] [address] [place] Calcium.ionized adjusted to pH 7.4 (BldA) [Moles/Vol] 1.07 mmol/L Low 1.08-1.30 [facility] Comment on above: Order Comment: Speci men Type: VENOUS BLOOD SPECIMENOrdering Facility: [facility] Address: [address] [place] [address] Performed By: #### 2 4344-4 ####[facility] LABIA [id number] [place] [address] [place] Carboxyhemoglobin (BldV) [Mass fraction] 1.1 % Normal 0.0-2.0 [facility] Comment on above: Order Comment: Speci men Type: VENOUS BLOOD SPECIMENOrdering Facility: [facility] Address: [address] [place] [address] Result Comment: Carb oxyhemoglobin Reference Range for Smokers: 2.0-8.0% Performed By: #### 2 4344-4 ####[facility] LABCLIA [id number] [place] [address] [place] CO2 (BldV) [Partial pressure] 51 mm[Hg] Normal 42-55 [facility] Comment on above: Order Comment: Speci men Type: VENOUS BLOOD SPECIMENOrdering Facility: [facility] Address: [address] [place] [address] Performed By: #### 2 4344-4 ####[facility] LABCLIA [id number] [address] [address] [place] Glucose [Mass/Vol] 176 mg/dL High 60-105 [facility] Comment on above: Order Comment: Speci men Type: VENOUS BLOOD SPECIMENOrdering Facility: [facility] Address: [address] [place] [address] Performed By: #### 2 4344-4 ####[facility] LABIA [id number] [place] [id number] [place] HCO3 (Bld) [Moles/Vol] 27 mmol/L Normal 24-28 [facility] Comment on above: Order Comment: Speci men Type: VENOUS BLOOD SPECIMENOrdering Facility: [facility] Address: [address] [place] [address] Performed By: #### 2 4344-4 ####[facility] LABIA [id number] [place] [address] [place] Hematocrit (Bld) [Volume fraction] 27.4 % Low 39.0-51.0 [facility] Comment on above: Order Comment: Speci men Type: VENOUS BLOOD SPECIMENOrdering Facility: [facility] Address: [address] [place] [address] Performed By: #### 2 4344-4 ####[facility] LABIA [id number] [place] [id number] [place] Hemoglobin (Bld) [Mass/Vol] 8.8 g/dL Low 13.0-17.0 [facility] Comment on above: Order Comment: Speci men Type: VENOUS BLOOD SPECIMENOrdering Facility: [facility] Address: [address] [place] [address] Performed By: #### 2 4344-4 ####[facility] LABCLIA [id number] [address] [place] [address] [place] Methemoglobin (Bld) [Mass fraction] 1.5 % Normal 0.0-1.5 [facility] Comment on above: Order Comment: Speci men Type: VENOUS BLOOD SPECIMENOrdering Facility: [facility] Address: [address] [place] [address] Performed By: #### 2 4344-4 ####[facility] LABCLIA [id number] [place] [id number] [place] Oxygen (BldV) [Partial pressure] 41 mm[Hg] Normal 35-45 [facility] Comment on above: Order Comment: Speci men Type: VENOUS BLOOD SPECIMENOrdering Facility: [facility] Address: [address] [place] [address] Performed By: #### 2 4344-4 ####[facility] LABIA [id number] [address], [facility]95 [place] Oxygen saturation in Venous blood 68 % Normal 60-85 [facility] Comment on above: Order Comment: Speci men Type: VENOUS BLOOD SPECIMENOrdering Facility: [facility] Address: [address] [place] [address] Performed By: #### 2 4344-4 ####[facility] LABIA [id number] [place] [id number] [place] Oxyhemoglobin (BldV) [Mass fraction] 66 % Normal 60-85 [facility] Comment on above: Order Comment: Speci men Type: VENOUS BLOOD SPECIMENOrdering Facility: [facility] Address: [address] [place], [place] [address] Performed By: #### 2 4344-4 ####[facility] LABIA [id number] [address] [place] [address] [place] pH (BldV) 7.35 [pH] Normal 7.32-7.42 [facility] Comment on above: Order Comment: Speci men Type: VENOUS BLOOD SPECIMENOrdering Facility: [facility] Address: [address] [place] [address] Performed By: #### 2 4344-4 ####[facility] LABIA [id number] [place] [address] [place] Potassium [Moles/Vol] 4.3 mmol/L Normal 3.5-5.0 [facility] Comment on above: Order Comment: Speci men Type: VENOUS BLOOD SPECIMENOrdering Facility: [facility] Address: [address] [place] [address] Performed By: #### 2 4344-4 ####[facility] LABIA [id number] [place] [address] [place] Haptoglob SerPl-mCncon 10-20 Haptoglobin [Mass/Vol] 55 mg/dL Normal 31-238 [facility] Comment on above: Order Comment: Speci men Type: BLOOD SPECIMENOrdering Facility: [facility] Address: [address] [place] [address] Performed By: #### 2 777-1, 35364-3, 4542-7, 08526-9 ####[facility] LABIA [id number] [place] [address] [place] LDH SerPl-cCncon 10-20-2024 LDH [Catalytic activity/Vol] 357 U/L High 135-225 [facility] Comment on above: Order Comment: Speci men Type: BLOOD SPECIMENOrdering Facility: [facility] Address: [address] [place] [address] Performed By: #### 2 532-0 ####[facility] LABIA [id number] [place] [id number] [place] Magnesium SerPl-mCncon 10-20 Magnesium [Mass/Vol] 2.0 mg/dL Normal 1.7-2.3 [facility] Comment on above: Order Comment: Gini nowak Type: BLOOD SPECIMENOrdering Facility: [facility] Address: [address] [place] [address] Result Comment: Resu lt rechecked. Performed By: #### 2 777-1, 49049-4, 4542-7, 78118-5 ####[facility] LABIA [id number] [place] [address] [place] NM CARDIAC AMYLOID SPECT/schedule announcer n 10-20-2024 NM CARDIAC AMYLOID SPECT/CT Normal [facility] PT panel Coag (PPP)on 2024 INR Coag (PPP) [Relative time] 1.4 {INR} High 0.9-1.3 [facility] Comment on above: Order Comment: Gini nowak Type: BLOOD SPECIMENOrdering Facility: [facility] Address: [address] [place] [address] Result Comment: Nettie min K Antagonist (VKA) Therapeutic Range: INR 2 to 3 (Target INR of 2.5)Note: For patients treated with VKA drugs, such as warfarin, the [employer] 2012 Guideline recommends [...] [phone] Performed By: #### 3 4528-0, 3217-7 ####[facility] LABCLIA [id number] [place] [address] [place] PT Coag (PPP) [Time] 14.4 s High 9.7-13.0 [facility] Comment on above: Order Comment: Speci men Type: BLOOD SPECIMENOrdering Facility: [facility] Address: [address] [place] [address] Performed By: #### 3 4528-0, 3217-7 ####[facility] LABCLIA [id number] [place] [address] [place] Phosphate SerPl-mCncon 10-20 Phosphate [Mass/Vol] 3.2 mg/dL Normal 2.7-4.8 [facility] Comment on above: Order Comment: Speci men Type: BLOOD SPECIMENOrdering Facility: [facility] Address: [address] [place] [address] Performed By: #### 2 777-1, 97235-5, 4542-7, 40916-5 ####[facility] LABCLIA [id number] [place] [address] [place] THERAPY NTon 10-20-2024 THERAPY NT Normal [facility] US CAROTID ARTERIES KIAH VAS LABon 10-20-2024 US CAROTID ARTERIES KIAH VAS LAB Normal [facility] US CHEST EFFUSION SURVEYon 0 10-20-2024 US CHEST EFFUSION SURVEY Normal [facility] XR CHEST 1V FRONTAL PORTon 0 10-20-2024 XR CHEST 1V FRONTAL PORT Normal [facility] ARTERIAL BLOOD GASESon 10-19 Base excess Calc (Bld) [Moles/Vol] 1 mmol/L Normal 0-2 [facility] Comment on above: Order Comment: Speci men Type: ARTERIAL BLOOD SPECIMENOrdering Facility: [facility] Address: [address] [place] [address] Performed By: #### A LLBG ####[facility] LABCLIA [id number] [place] [address] [place] Body temperature 98.96 [degF] Normal [facility] Comment on above: Order Comment: Speci men Type: ARTERIAL BLOOD SPECIMENOrdering Facility: [facility] Address: [address] [place] [address] Performed By: #### A LLBG ####[facility] LABCLIA [id number] [place] [address] [place] Order Comment: Speci men Type: VENOUS BLOOD SPECIMENOrdering Facility: [facility] Address: [address] [place] [address] Performed By: #### 2 4344-4 ####[facility] LABIA [id number] [place] [address] [place] Calcium.ionized (Bld) [Mass/Vol] 1.11 mmol/L Normal 1.08-1.30 [facility] Comment on above: Order Comment: Speci men Type: ARTERIAL BLOOD SPECIMENOrdering Facility: [facility] Address: [address] [place] [address] Performed By: #### A LLBG ####[facility] LABIA [id number] [place] [address] [place] Order Comment: Speci men Type: VENOUS BLOOD SPECIMENOrdering Facility: [facility] Address: [address] [place] [address] Performed By: #### 2 4344-4 ####[facility] LABIA [id number] [place] [address] [place] Calcium.ionized adjusted to pH 7.4 (BldA) [Moles/Vol] 1.13 mmol/L Normal 1.08-1.30 [facility] Comment on above: Order Comment: Speci men Type: ARTERIAL BLOOD SPECIMENOrdering Facility: [facility] Address: [address] [place] [address] Performed By: #### A LLBG ####[facility] LABIA [id number] [place] [id number] [place] Carboxyhemoglobin (BldA) [Mass fraction] 1.6 % Normal 0.0-2.0 [facility] Comment on above: Order Comment: Speci men Type: ARTERIAL BLOOD SPECIMENOrdering Facility: [facility] Address: [address] [place] [address] Result Comment: Carb oxyhemoglobin Reference Range for Smokers: 2.0-8.0% Performed By: #### A LLBG ####[facility] LABCLIA [id number] [place] [id number] [place] CO2 (Bld) [Partial pressure] 37 mm Hg Normal 36-46 [facility] Comment on above: Order Comment: Speci men Type: ARTERIAL BLOOD SPECIMENOrdering Facility: [facility] Address: [address] [place] [address] Performed By: #### A LLBG ####[facility] LABCLIA [id number] [place] [id number] [place] CO2 adjusted to patient's actual temperature (Bld) [Partial pressure] 38 mmHg Normal 36-46 [facility] Comment on above: Order Comment: Speci men Type: ARTERIAL BLOOD SPECIMENOrdering Facility: [facility] Address: [address] [place] [address] Performed By: #### A LLBG ####[facility] LABCLIA [id number] [place] [id number] [place] Glucose [Mass/Vol] 262 mg/dL High 60-105 [facility] Comment on above: Order Comment: Speci men Type: ARTERIAL BLOOD SPECIMENOrdering Facility: [facility] Address: [address] [place] [address] Performed By: #### A LLBG ####[facility] LABIA [id number] [place] [id number] [place] HCO3 (Bld) [Moles/Vol] 24 mmol/L Normal 22-26 [facility] Comment on above: Order Comment: Speci men Type: ARTERIAL BLOOD SPECIMENOrdering Facility: [facility] Address: [address] [place] [address] Performed By: #### A LLBG ####[facility] LABCLIA [id number] [place] [address] [place] Hematocrit (Bld) [Volume fraction] 28.3 % Low 39.0-51.0 [facility] Comment on above: Order Comment: Speci men Type: ARTERIAL BLOOD SPECIMENOrdering Facility: [facility] Address: [address] [place] [address] Performed By: #### A LLBG ####[facility] LABCLIA [id number] [place] [address] [place] Hemoglobin (Bld) [Mass/Vol] 9.1 g/dL Low 13.0-17.0 [facility] Comment on above: Order Comment: Speci men Type: ARTERIAL BLOOD SPECIMENOrdering Facility: [facility] Address: [address] [place] [address] Performed By: #### A LLBG ####[facility] LABCLIA [id number] [place] [address] [place] Lactate [Moles/Vol] 2.0 mmol/L Normal 0.5-2.2 [facility] Comment on above: Order Comment: Speci men Type: ARTERIAL BLOOD SPECIMENOrdering Facility: [facility] Address: [address] [place] [address] Performed By: #### A LLBG ####[facility] LABCLIA [id number] [place] [address] [place] LITERS 2 Liters/min Normal [facility] Comment on above: Order Comment: Speci men Type: ARTERIAL BLOOD SPECIMENOrdering Facility: [facility] Address: [address] [place] [address] Performed By: #### A LLBG ####[facility] LABCLIA [id number] [place] [id number] [place] Order Comment: Speci men Type: VENOUS BLOOD SPECIMENOrdering Facility: [facility] Address: [address] [place], [place] [address] Performed By: #### 2 4344-4 ####[facility] LABCLIA [id number] [address] [place] [address] [place] Methemoglobin (Bld) [Mass fraction] 1.6 % High 0.0-1.5 [facility] Comment on above: Order Comment: Speci men Type: ARTERIAL BLOOD SPECIMENOrdering Facility: [facility] Address: [address] [place], [place] [address] Performed By: #### A LLBG ####[facility] LABCLIA [id number] [address] [place] [address] [place] O2 THERAPY NC = Nasal Cannula Normal [facility] Comment on above: Order Comment: Speci men Type: ARTERIAL BLOOD SPECIMENOrdering Facility: [facility] Address: [address] [place] [address] Performed By: #### A LLBG ####[facility] LABCLIA [id number] [address] [place] [address] [place] Order Comment: Speci men Type: VENOUS BLOOD SPECIMENOrdering Facility: [facility] Address: [address] [place], [place] [address] Performed By: #### 2 4344-4 ####[facility] LABCLIA [id number] [address] [place] [address] [place] Oxygen (Bld) [Partial pressure] 129 mm Hg High 85-95 [facility] Comment on above: Order Comment: Speci men Type: ARTERIAL BLOOD SPECIMENOrdering Facility: [facility] Address: [address] [place], [place] [address] Performed By: #### A LLBG ####[facility] LABCLIA [id number] [address] [place] [address] [place] Oxygen adjusted to patient's actual temperature (Bld) [Partial pressure] 130 mmHg High 85-95 [facility] Comment on above: Order Comment: Speci men Type: ARTERIAL BLOOD SPECIMENOrdering Facility: [facility] Address: [address] [place] [address] Performed By: #### A LLBG ####[facility] LABCLIA [id number] [address] [address] [place] Oxyhemoglobin (BldA) [Mass fraction] 96 % Normal 95-98 [facility] Comment on above: Order Comment: Speci men Type: ARTERIAL BLOOD SPECIMENOrdering Facility: [facility] Address: [address] [place] [address] Performed By: #### A LLBG ####[facility] LABCLIA [id number] [place] [id number] [place] pH (Bld) 7.43 [pH] Normal 7.35-7.45 [facility] Comment on above: Order Comment: Speci men Type: ARTERIAL BLOOD SPECIMENOrdering Facility: [facility] Address: [address] [place] [address] Performed By: #### A LLBG ####[facility] LABCLIA [id number] [place] [address] [place] pH adjusted to patient's actual temperature (Bld) 7.43 Normal 7.35-7.45 [facility] Comment on above: Order Comment: Speci men Type: ARTERIAL BLOOD SPECIMENOrdering Facility: [facility] Address: [address] [place] [address] Performed By: #### A LLBG ####[facility] LABCLIA [id number] [place] [id number] [place] Potassium [Moles/Vol] 4.6 mmol/L Normal 3.5-5.0 [facility] Comment on above: Order Comment: Speci men Type: ARTERIAL BLOOD SPECIMENOrdering Facility: [facility] Address: [address] [place] [address] Performed By: #### A LLBG ####[facility] LABCLIA [id number] [place] [id number] [place] Sodium [Moles/Vol] 131 mmol/L Low 136-144 [facility] Comment on above: Order Comment: Speci men Type: ARTERIAL BLOOD SPECIMENOrdering Facility: [facility] Address: [address] [place] [address] Performed By: #### A LLBG ####[facility] LABCLIA [id number] [place] [address] [place] Base excess Calc (Bld) [Moles/Vol] 2 mmol/L Normal 0-2 [facility] Comment on above: Order Comment: Speci men Type: ARTERIAL BLOOD SPECIMENOrdering Facility: [facility] Address: [address] [place] [address] Performed By: #### A LLBG ####[facility] LABCLIA [id number] [place] [address] [place] Body temperature 97.16 [degF] Normal [facility] Comment on above: Order Comment: Speci men Type: ARTERIAL BLOOD SPECIMENOrdering Facility: [facility] Address: [address] [place] [address] Performed By: #### A LLBG ####[facility] LABCLIA [id number] [place] [address] [place] Order Comment: Speci men Type: VENOUS BLOOD SPECIMENOrdering Facility: [facility] Address: [address] [place] [address] Performed By: #### 2 4344-4 ####[facility] LABCLIA [id number] [place] [address] [place] Calcium.ionized (Bld) [Mass/Vol] 1.15 mmol/L Normal 1.08-1.30 [facility] Comment on above: Order Comment: Speci men Type: ARTERIAL BLOOD SPECIMENOrdering Facility: [facility] Address: [address] [place] [address] Performed By: #### A LLBG ####[facility] LABCLIA [id number] [place] [address] [place] Calcium.ionized adjusted to pH 7.4 (BldA) [Moles/Vol] 1.14 mmol/L Normal 1.08-1.30 [facility] Comment on above: Order Comment: Speci men Type: ARTERIAL BLOOD SPECIMENOrdering Facility: [facility] Address: [address] [place] [address] Performed By: #### A LLBG ####[facility] LABCLIA [id number] [place] [address] [place] Order Comment: Speci men Type: VENOUS BLOOD SPECIMENOrdering Facility: [facility] Address: [address] [place] [address] Performed By: #### 2 4344-4 ####[facility] LABIA [id number] [place] [address] [place] Carboxyhemoglobin (BldA) [Mass fraction] 1.5 % Normal 0.0-2.0 [facility] Comment on above: Order Comment: Speci men Type: ARTERIAL BLOOD SPECIMENOrdering Facility: [facility] Address: [address] [place] [address] Result Comment: Carb oxyhemoglobin Reference Range for Smokers: 2.0-8.0% Performed By: #### A LLBG ####[facility] LABCLIA [id number] [place] [address] [place] CO2 (Bld) [Partial pressure] 46 mm Hg Normal 36-46 [facility] Comment on above: Order Comment: Speci men Type: ARTERIAL BLOOD SPECIMENOrdering Facility: [facility] Address: [address] [place] [address] Performed By: #### A LLBG ####[facility] LABCLIA [id number] [place] [address] [place] CO2 adjusted to patient's actual temperature (Bld) [Partial pressure] 44 mmHg Normal 36-46 [facility] Comment on above: Order Comment: Speci men Type: ARTERIAL BLOOD SPECIMENOrdering Facility: [facility] Address: [address] [place] [address] Performed By: #### A LLBG ####[facility] LABCLIA [id number] [place] [address] [place] Glucose [Mass/Vol] 121 mg/dL High 60-105 [facility] Comment on above: Order Comment: Speci men Type: ARTERIAL BLOOD SPECIMENOrdering Facility: [facility] Address: [address] [place] [address] Performed By: #### A LLBG ####[facility] LABCLIA [id number] [place] [id number] [place] HCO3 (Bld) [Moles/Vol] 26 mmol/L Normal 22-26 [facility] Comment on above: Order Comment: Speci men Type: ARTERIAL BLOOD SPECIMENOrdering Facility: [facility] Address: [address] [place] [address] Performed By: #### A LLBG ####[facility] LABCLIA [id number] [address] [place] Hematocrit (Bld) [Volume fraction] 27.9 % Low 39.0-51.0 [facility] Comment on above: Order Comment: Speci men Type: ARTERIAL BLOOD SPECIMENOrdering Facility: [facility] Address: [address] [place] [address] Performed By: #### A LLBG ####[facility] LABCLIA [id number] [place] [id number] [place] Hemoglobin (Bld) [Mass/Vol] 9.0 g/dL Low 13.0-17.0 [facility] Comment on above: Order Comment: Speci men Type: ARTERIAL BLOOD SPECIMENOrdering Facility: [facility] Address: [address] [place] [address] Performed By: #### A LLBG ####[facility] LABCLIA [id number] [place] [address] [place] Lactate [Moles/Vol] 0.6 mmol/L Normal 0.5-2.2 [facility] Comment on above: Order Comment: Speci men Type: ARTERIAL BLOOD SPECIMENOrdering Facility: [facility] Address: [address] [place] [address] Performed By: #### A LLBG ####[facility] LABCLIA [id number] [place] [address] [place] Order Comment: Speci men Type: VENOUS BLOOD SPECIMENOrdering Facility: [facility] Address: [address] [place] [address] Performed By: #### 2 4344-4 ####[facility] LABCLIA [id number] [place] [address] [place] LITERS 2 Liters/min Normal [facility] Comment on above: Order Comment: Speci men Type: ARTERIAL BLOOD SPECIMENOrdering Facility: [facility] Address: [address] [place] [address] Performed By: #### A LLBG ####[facility] LABCLIA [id number] [place] [address] [place] Order Comment: Speci men Type: VENOUS BLOOD SPECIMENOrdering Facility: [facility] Address: [address] [place] [address] Performed By: #### 2 4344-4 ####[facility] LABCLIA [id number] [place] [id number] [place] Methemoglobin (Bld) [Mass fraction] 1.4 % Normal 0.0-1.5 [facility] Comment on above: Order Comment: Speci men Type: ARTERIAL BLOOD SPECIMENOrdering Facility: [facility] Address: [address] [place] [address] Performed By: #### A LLBG ####[facility] LABCLIA [id number] [address] [place] [address] [place] O2 THERAPY NC = Nasal Cannula Normal [facility] Comment on above: Order Comment: Speci men Type: ARTERIAL BLOOD SPECIMENOrdering Facility: [facility] Address: [address] [place] [id number] Performed By: #### A LLBG ####[facility] LABCLIA [id number] [address] [place] [address] [place] Order Comment: Speci men Type: VENOUS BLOOD SPECIMENOrdering Facility: [facility] Address: [address] [place] [id number] Performed By: #### 2 4344-4 ####[facility] LABCLIA [id number] [address] [address] [place] Oxygen (Bld) [Partial pressure] 84 mm Hg Low 85-95 [facility] Comment on above: Order Comment: Speci men Type: ARTERIAL BLOOD SPECIMENOrdering Facility: [facility] Address: [address] [place] [address] Performed By: #### A LLBG ####[facility] LABCLIA [id number] [address] [place] [address] [place] Oxygen adjusted to patient's actual temperature (Bld) [Partial pressure] 80 mmHg Low 85-95 [facility] Comment on above: Order Comment: Speci men Type: ARTERIAL BLOOD SPECIMENOrdering Facility: [facility] Address: [address] [place] [address] Performed By: #### A LLBG ####[facility] LABCLIA [id number] [address] [address] [place] Oxyhemoglobin (BldA) [Mass fraction] 93 % Low 95-98 [facility] Comment on above: Order Comment: Speci men Type: ARTERIAL BLOOD SPECIMENOrdering Facility: [facility] Address: [address] [place] [address] Performed By: #### A LLBG ####[facility] LABCLIA [id number] [place] [address] [place] pH (Bld) 7.38 [pH] Normal 7.35-7.45 [facility] Comment on above: Order Comment: Speci men Type: ARTERIAL BLOOD SPECIMENOrdering Facility: [facility] Address: [address] [place] [address] Performed By: #### A LLBG ####[facility] LABIA [id number] [place] [address] [place] pH adjusted to patient's actual temperature (Bld) 7.39 Normal 7.35-7.45 [facility] Comment on above: Order Comment: Speci men Type: ARTERIAL BLOOD SPECIMENOrdering Facility: [facility] Address: [address] [place] [address] Performed By: #### A LLBG ####[facility] LABIA [id number] [place] [address] [place] Potassium [Moles/Vol] 3.8 mmol/L Normal 3.5-5.0 [facility] Comment on above: Order Comment: Speci men Type: ARTERIAL BLOOD SPECIMENOrdering Facility: [facility] Address: [address] [place] [address] Performed By: #### A LLBG ####[facility] LABCLIA [id number] [place] [id number] [place] Sodium [Moles/Vol] 133 mmol/L Low 136-144 [facility] Comment on above: Order Comment: Speci men Type: ARTERIAL BLOOD SPECIMENOrdering Facility: [facility] Address: [address] [place] [address] Performed By: #### A LLBG ####[facility] LABCLIA [id number] [address] [place] CBC panel Auto (Bld)on 10-19 Erythrocyte distribution width (RBC) [Ratio] 17.2 % High 11.5-15.0 [facility] Comment on above: Order Comment: Speci men Type: BLOOD SPECIMENOrdering Facility: [facility] Address: [address] [place] [address] Performed By: #### 5 8410-2 ####[facility] LABIA [id number] [address] [place] Hematocrit (Bld) [Volume fraction] 28.0 % Low 39.0-51.0 [facility] Comment on above: Order Comment: Speci men Type: BLOOD SPECIMENOrdering Facility: [facility] Address: [address] [place] [address] Performed By: #### 5 8410-2 ####[facility] LABIA [id number] [address] Hemoglobin (Bld) [Mass/Vol] 8.8 g/dL Low 13.0-17.0 [facility] Comment on above: Order Comment: Speci men Type: BLOOD SPECIMENOrdering Facility: [facility] Address: [address] [place] [address] Performed By: #### 5 8410-2 ####[facility] LABIA [id number] [place] [address] [place] MCH (RBC) [Entitic mass] 32.0 pg Normal 26.0-34.0 [facility] Comment on above: Order Comment: Speci men Type: BLOOD SPECIMENOrdering Facility: [facility] Address: [address] [place] [address] Performed By: #### 5 8410-2 ####[facility] LABCLIA [id number] [place] [id number] [place] MCHC (RBC) [Mass/Vol] 31.4 g/dL Normal 30.5-36.0 [facility] Comment on above: Order Comment: Speci men Type: BLOOD SPECIMENOrdering Facility: [facility] Address: [address] [place] [address] Performed By: #### 5 8410-2 ####[facility] LABIA [id number] [address] [address] [place] MCV (RBC) [Entitic vol] 101.8 fL High 80.0-100.0 C [facility] Comment on above: Order Comment: Speci men Type: BLOOD SPECIMENOrdering Facility: [facility] Address: [address] [place] [address] Performed By: #### 5 8410-2 ####[facility] LABIA [id number] [place] [address] [place] Nucleated RBC (Bld) [#/Vol] 10*3/uL Normal <0.01 [facility] Comment on above: Order Comment: Speci men Type: BLOOD SPECIMENOrdering Facility: [facility] Address: [address] [place] [address] Performed By: #### 5 8410-2 ####[facility] [id number] [place] [address] [place] Platelet mean volume (Bld) [Entitic vol] 12.3 fL Normal 9.0-12.7 [facility] Comment on above: Order Comment: Speci men Type: BLOOD SPECIMENOrdering Facility: [facility] Address: [address] [place] [address] Performed By: #### 5 8410-2 ####[facility] LABIA [id number] [place] [address] [place] Platelets (Bld) [#/Vol] 118 10*3/uL Low 150-400 [facility] Comment on above: Order Comment: Speci men Type: BLOOD SPECIMENOrdering Facility: [facility] Address: [address] [place] [address] Performed By: #### 5 8410-2 ####[facility] LABCLIA [id number] [place] [id number] [place] RBC (Bld) [#/Vol] 2.75 10*6/uL Low 4.20-6.00 [facility] Comment on above: Order Comment: Speci men Type: BLOOD SPECIMENOrdering Facility: [facility] Address: [address] [place] [address] Performed By: #### 5 8410-2 ####[facility] LABIA [id number] [place] [address] [place] WBC (Bld) [#/Vol] 5.03 10*3/uL Normal 3.70-11.00 [facility] Comment on above: Order Comment: Speci men Type: BLOOD SPECIMENOrdering Facility: [facility] Address: [address] [place] [address] Performed By: #### 5 8410-2 ####[facility] [id number] [place] [id number] [place] CONSULTon 10-19-2024 CONSULT Normal [facility] CONSULT Normal [facility] Comprehensive metabolic 2000 panelon 10-19-2024 Albumin [Mass/Vol] 2.6 g/dL Low 3.9-4.9 [facility] Comment on above: Order Comment: Speci men Type: BLOOD SPECIMENOrdering Facility: [facility] Address: [address] [place] [address] Performed By: #### 2 4323-8, 77505-9, 2777-1 ####[facility] LABIA [id number] [place] [id number] [place] ALP [Catalytic activity/Vol] 102 U/L Normal 38-113 [facility] Comment on above: Order Comment: Speci men Type: BLOOD SPECIMENOrdering Facility: [facility] Address: [address] [place] [address] Performed By: #### 2 4323-8, 96913-4, 2776-02 ####[facility] LABCLIA [id number] [address] [address] [place] ALT [Catalytic activity/Vol] 12 U/L Normal 10-54 [facility] Comment on above: Order Comment: Speci men Type: BLOOD SPECIMENOrdering Facility: [facility] Address: [address] [place] [address] Performed By: #### 2 4323-8, , 2776-02 ####[facility] LABCLIA [id number] [place] [id number] [place] Anion gap [Moles/Vol] 11 mmol/L Normal 8-15 [facility] Comment on above: Order Comment: Speci men Type: BLOOD SPECIMENOrdering Facility: [facility] Address: [address] [place] [address] Performed By: #### 2 4323-8, , 2776-02 ####[facility] LABCLIA [id number] [place] [id number] [place] AST [Catalytic activity/Vol] 19 U/L Normal 14-40 [facility] Comment on above: Order Comment: Speci men Type: BLOOD SPECIMENOrdering Facility: [facility] Address: [address] [place], [place] [address] Performed By: #### 2 4323-8, , 2776-02 ####[facility] LABCLIA [id number] [address] [address] [place] Bilirubin [Mass/Vol] 0.2 mg/dL Normal 0.2-1.3 [facility] Comment on above: Order Comment: Speci men Type: BLOOD SPECIMENOrdering Facility: [facility] Address: [address] [place], [place] [address] Performed By: #### 2 4323-8, , 2776-02 ####[facility] LABCLIA [id number] [address] [address] [place] Calcium [Mass/Vol] 8.0 mg/dL Low 8.5-10.2 [facility] Comment on above: Order Comment: Speci men Type: BLOOD SPECIMENOrdering Facility: [facility] Address: [address] [place], [place] [address] Performed By: #### 2 4323-8, , 2776-02 ####[facility] LABCLIA [id number] [address] [address] [place] Chloride [Moles/Vol] 102 mmol/L Normal 98-107 [facility] Comment on above: Order Comment: Speci men Type: BLOOD SPECIMENOrdering Facility: [facility] Address: [address] [place], [place] [address] Performed By: #### 2 4323-8, , 2776-02 ####[facility] LABCLIA [id number] [address] [address] [place] CO2 [Moles/Vol] 23 mmol/L Normal 22-30 [facility] Comment on above: Order Comment: Speci men Type: BLOOD SPECIMENOrdering Facility: [facility] Address: [address] [place] [address] Performed By: #### 2 4323-8, , 2776-02 ####[facility] LABCLIA [id number] [facility] [address] [address] [place] Creatinine [Mass/Vol] 1.75 mg/dL High 0.73-1.22 [facility] Comment on above: Order Comment: Speci men Type: BLOOD SPECIMENOrdering Facility: [facility] Address: [address] [place] [address] Performed By: #### 2 4323-8, , 2776-02 ####[facility] LABCLIA [id number] [address] [address] [place] eGFRcr SerPlBld CKD-EPI 2020 43 mL/min/1.73m??? Low >=60 [facility] Comment on above: Order Comment: Gini nowak Type: BLOOD SPECIMENOrdering Facility: [facility] Address: [address] [place] [address] Result Comment: Gurwinder mated Glomerular Filtration Rate [...] actual GFR. Performed By: #### 2 4323-8, 96407-2, 2777- ####[facility] LABCLIA [id number] [place] [id number] [place] Glucose [Mass/Vol] 208 mg/dL High 74-99 [facility] Comment on above: Order Comment: Gini nowak Type: BLOOD SPECIMENOrdering Facility: [facility] Address: [address] [place] [address] Result Comment: The [place] [employer] (ADA) provides guidance for cutoff [...] Standards of Medical Care in Diabetes 2016, [place] [employer]. Diabetes Care. 2016.39(Suppl 1). Performed By: #### 2 4323-8, 64624-1, 2777-1 ####[facility] LABCLIA [id number] [address] [address] [place] Potassium [Moles/Vol] 4.1 mmol/L Normal 3.7-5.1 [facility] Comment on above: Order Comment: Speci men Type: BLOOD SPECIMENOrdering Facility: [facility] Address: [address] [place] [address] Performed By: #### 2 4323-8, 26777-0, 2776-1 ####[facility] LABCLIA [id number] [place] [address] [place] Protein [Mass/Vol] 4.9 g/dL Low 6.3-8.0 [facility] Comment on above: Order Comment: Speci men Type: BLOOD SPECIMENOrdering Facility: [facility] Address: [address] [place] [address] Performed By: #### 2 4323-8, , 2776- ####[facility] LABCLIA [id number] [place] [address] [place] Sodium [Moles/Vol] 136 mmol/L Normal 136-144 [facility] Comment on above: Order Comment: Speci men Type: BLOOD SPECIMENOrdering Facility: [facility] Address: [address] [place] [address] Performed By: #### 2 4323-8, , 2776- ####[facility] LABCLIA [id number] [place] [address] [place] Urea nitrogen [Mass/Vol] 22 mg/dL Normal 9-24 [facility] Comment on above: Order Comment: Speci men Type: BLOOD SPECIMENOrdering Facility: [facility] Address: [address] [place] [address] Performed By: #### 2 4323-8, 86055-2, 2776- ####[facility] LABCLIA [id number] [place] [id number] [place] Fact Xa PPP-aCncon 5 Coagulation factor X activated act Coag Qn (PPP) 0.74 IU/mL High <0.10 [facility] Comment on above: Order Comment: Gini nowak Type: BLOOD SPECIMENOrdering Facility: [facility] Address: [address] [place] [address] Result Comment: The recommended therapeutic range for treatment of venous and arterial thrombosis with intravenous unfractionated heparin is an anti Xa activity level of 0.3 to 0.7 IU/mL. In patients with concomitant therapy with thrombolytic agents and/or platelet glycoprotein IIb/IIIa antagonists, the recommended therapeutic range is an anti Xa activity level of 0.2 to 0.5 IU/mL. Performed By: #### 3 217-7, 19870-1 ####[facility] [id number] [place] [address] [place] Gas and Carbon monoxide pane l (BldV)on 10-19-2024 Base excess Calc (BldV) [Moles/Vol] 1 mmol/L Normal 0-2 [facility] Comment on above: Order Comment: Gini nowak Type: VENOUS BLOOD SPECIMENOrdering Facility: [facility] Address: [address] [place] [address] Performed By: #### 2 4344-4 ####[facility] [id number] [place] [address] [place] Calcium.ionized adjusted to pH 7.4 (BldA) [Moles/Vol] 1.09 mmol/L Normal 1.08-1.30 [facility] Comment on above: Order Comment: Gini nowak Type: VENOUS BLOOD SPECIMENOrdering Facility: [facility] Address: [address] [place] [address] Performed By: #### 2 4344-4 ####[facility] [id number] [place] [address] [place] Carboxyhemoglobin (BldV) [Mass fraction] 1.4 % Normal 0.0-2.0 [facility] Comment on above: Order Comment: Corbyi men Type: VENOUS BLOOD SPECIMENOrdering Facility: [facility] Address: [address] [place] [address] Result Comment: Carb oxyhemoglobin Reference Range for Smokers: 2.0-8.0% Performed By: #### 2 4344-4 ####[facility] LABCLIA [id number] [address] [address] [place] CO2 (BldV) [Partial pressure] 47 mm[Hg] Normal 42-55 [facility] Comment on above: Order Comment: Speci men Type: VENOUS BLOOD SPECIMENOrdering Facility: [facility] Address: [address] [place] [address] Performed By: #### 2 4344-4 ####[facility] LABCLIA [id number] [place] [address] [place] CO2 adjusted to patient's actual temperature (BldV) [Partial pressure] 48 mmHg Normal 42-55 [facility] Comment on above: Order Comment: Speci men Type: VENOUS BLOOD SPECIMENOrdering Facility: [facility] Address: [address] [place] [address] Performed By: #### 2 4344-4 ####[facility] LABCLIA [id number] [place] [address] [place] Glucose [Mass/Vol] 251 mg/dL High 60-105 [facility] Comment on above: Order Comment: Speci men Type: VENOUS BLOOD SPECIMENOrdering Facility: [facility] Address: [address] [place] [address] Performed By: #### 2 4344-4 ####[facility] LABCLIA [id number] [place] [id number] [place] HCO3 (Bld) [Moles/Vol] 26 mmol/L Normal 24-28 [facility] Comment on above: Order Comment: Speci men Type: VENOUS BLOOD SPECIMENOrdering Facility: [facility] Address: [address] [place] [address] Performed By: #### 2 4344-4 ####[facility] LABIA [id number] [place] [address] [place] Hematocrit (Bld) [Volume fraction] 27.7 % Low 39.0-51.0 [facility] Comment on above: Order Comment: Speci men Type: VENOUS BLOOD SPECIMENOrdering Facility: [facility] Address: [address] [place] [address] Performed By: #### 2 4344-4 ####[facility] LABIA [id number] [place] [address] [place] Hemoglobin (Bld) [Mass/Vol] 8.9 g/dL Low 13.0-17.0 [facility] Comment on above: Order Comment: Speci men Type: VENOUS BLOOD SPECIMENOrdering Facility: [facility] Address: [address] [place] [address] Performed By: #### 2 4344-4 ####[facility] LABIA [id number] [place] [address] [place] Lactate [Moles/Vol] 1.8 mmol/L Normal 0.5-2.2 [facility] Comment on above: Order Comment: Speci men Type: VENOUS BLOOD SPECIMENOrdering Facility: [facility] Address: [address] [place] [address] Performed By: #### 2 4344-4 ####[facility] LABIA [id number] [place] [address] [place] Methemoglobin (Bld) [Mass fraction] 1.5 % Normal 0.0-1.5 [facility] Comment on above: Order Comment: Speci men Type: VENOUS BLOOD SPECIMENOrdering Facility: [facility] Address: [address] [place] [address] Performed By: #### 2 4344-4 ####[facility] LABIA [id number] [address] [id number] [address] [place] Oxygen (BldV) [Partial pressure] 39 mm[Hg] Normal 35-45 [facility] Comment on above: Order Comment: Speci men Type: VENOUS BLOOD SPECIMENOrdering Facility: [facility] Address: [address] [place] [address] Performed By: #### 2 4344-4 ####[facility] LABCLIA [id number] [place] [id number] [place] Oxygen adjusted to patient's actual temperature (BldV) [Partial pressure] 39 mmHg Normal 35-45 [facility] Comment on above: Order Comment: Speci men Type: VENOUS BLOOD SPECIMENOrdering Facility: [facility] Address: [address] [place] [address] Performed By: #### 2 4344-4 ####[facility] LABCLIA [id number] [place] [address] [place] Oxygen saturation in Venous blood 68 % Normal 60-85 [facility] Comment on above: Order Comment: Speci men Type: VENOUS BLOOD SPECIMENOrdering Facility: [facility] Address: [address] [place] [address] Performed By: #### 2 4344-4 ####[facility] LABCLIA [id number] [place] [address] [place] Oxyhemoglobin (BldV) [Mass fraction] 66 % Normal 60-85 [facility] Comment on above: Order Comment: Speci men Type: VENOUS BLOOD SPECIMENOrdering Facility: [facility] Address: [address] [place] [address] Performed By: #### 2 4344-4 ####[facility] LABCLIA [id number] [place] [id number] [place] pH (BldV) 7.36 [pH] Normal 7.32-7.42 [facility] Comment on above: Order Comment: Speci men Type: VENOUS BLOOD SPECIMENOrdering Facility: [facility] Address: [address] [place] [address] Performed By: #### 2 4344-4 ####[facility] LABCLIA [id number] [place] [address] [place] pH adjusted to patient's actual temperature (BldV) 7.36 Normal 7.32-7.42 [facility] Comment on above: Order Comment: Speci men Type: VENOUS BLOOD SPECIMENOrdering Facility: [facility] Address: [address] [place] [address] Performed By: #### 2 4344-4 ####[facility] LABCLIA [id number] [place] [address] [place] Potassium [Moles/Vol] 4.5 mmol/L Normal 3.5-5.0 [facility] Comment on above: Order Comment: Speci men Type: VENOUS BLOOD SPECIMENOrdering Facility: [facility] Address: [address] [place] [address] Performed By: #### 2 4344-4 ####[facility] LABCLIA [id number] [place] [address] [place] Sodium [Moles/Vol] 132 mmol/L Low 136-144 [facility] Comment on above: Order Comment: Speci men Type: VENOUS BLOOD SPECIMENOrdering Facility: [facility] Address: [address] [place], [place] [address] Performed By: #### 2 4344-4 ####[facility] LABCLIA [id number] [place] [id number] [place] Base excess Calc (BldV) [Moles/Vol] 3 mmol/L High 0-2 [facility] Comment on above: Order Comment: Speci men Type: VENOUS BLOOD SPECIMENOrdering Facility: [facility] Address: [address] [place], [place] [address] Performed By: #### 2 4344-4 ####[facility] LABCLIA [id number] [place] [id number] [place] Body temperature 97.52 [degF] Normal [facility] Comment on above: Order Comment: Speci men Type: VENOUS BLOOD SPECIMENOrdering Facility: [facility] Address: [address] [place] [address] Performed By: #### 2 4344-4 ####[facility] LABCLIA [id number] [place] [address] [place] Calcium.ionized (Bld) [Mass/Vol] 1.13 mmol/L Normal 1.08-1.30 [facility] Comment on above: Order Comment: Speci men Type: VENOUS BLOOD SPECIMENOrdering Facility: [facility] Address: [address] [place] [address] Performed By: #### 2 4344-4 ####[facility] LABIA [id number] [place] [address] [place] Calcium.ionized adjusted to pH 7.4 (BldA) [Moles/Vol] 1.12 mmol/L Normal 1.08-1.30 [facility] Comment on above: Order Comment: Speci men Type: VENOUS BLOOD SPECIMENOrdering Facility: [facility] Address: [address] [place] [address] Performed By: #### 2 4344-4 ####[facility] LABIA [id number] [place] [address] [place] Carboxyhemoglobin (BldV) [Mass fraction] 1.2 % Normal 0.0-2.0 [facility] Comment on above: Order Comment: Speci men Type: VENOUS BLOOD SPECIMENOrdering Facility: [facility] Address: [address] [place] [address] Result Comment: Carb oxyhemoglobin Reference Range for Smokers: 2.0-8.0% Performed By: #### 2 4344-4 ####[facility] LABCLIA [id number] [place] [address] [place] CO2 (BldV) [Partial pressure] 49 mm[Hg] Normal 42-55 [facility] Comment on above: Order Comment: Speci men Type: VENOUS BLOOD SPECIMENOrdering Facility: [facility] Address: [address] [place] [address] Performed By: #### 2 4344-4 ####[facility] LABCLIA [id number] [facility] [address] [place] [address] [place] CO2 adjusted to patient's actual temperature (BldV) [Partial pressure] 47 mmHg Normal 42-55 [facility] Comment on above: Order Comment: Speci men Type: VENOUS BLOOD SPECIMENOrdering Facility: [facility] Address: [address] [place] [address] Performed By: #### 2 4344-4 ####[facility] LABCLIA [id number] [address] [address] [place] Glucose [Mass/Vol] 226 mg/dL High 60-105 [facility] Comment on above: Order Comment: Speci men Type: VENOUS BLOOD SPECIMENOrdering Facility: [facility] Address: [address] [place], [place] [address] Performed By: #### 2 4344-4 ####[facility] LABCLIA [id number] [address] [address] [place] HCO3 (Bld) [Moles/Vol] 28 mmol/L Normal 24-28 [facility] Comment on above: Order Comment: Speci men Type: VENOUS BLOOD SPECIMENOrdering Facility: [facility] Address: [address] [place] [address] Performed By: #### 2 4344-4 ####[facility] LABCLIA [id number] [address] [address] [place] Hematocrit (Bld) [Volume fraction] 29.0 % Low 39.0-51.0 [facility] Comment on above: Order Comment: Speci men Type: VENOUS BLOOD SPECIMENOrdering Facility: [facility] Address: [address] [place] [address] Performed By: #### 2 4344-4 ####[facility] LABCLIA [id number] [place] [address] [place] Hemoglobin (Bld) [Mass/Vol] 9.3 g/dL Low 13.0-17.0 [facility] Comment on above: Order Comment: Speci men Type: VENOUS BLOOD SPECIMENOrdering Facility: [facility] Address: [address] [place] [address] Performed By: #### 2 4344-4 ####[facility] LABCLIA [id number] [place] [address] [place] Lactate [Moles/Vol] 1.7 mmol/L Normal 0.5-2.2 [facility] Comment on above: Order Comment: Speci men Type: VENOUS BLOOD SPECIMENOrdering Facility: [facility] Address: [address] [place] [address] Performed By: #### 2 4344-4 ####[facility] LABCLIA [id number] [place] [address] [place] LITERS 2 Liters/min Normal [facility] Comment on above: Order Comment: Speci men Type: VENOUS BLOOD SPECIMENOrdering Facility: [facility] Address: [address] [place] [address] Performed By: #### 2 4344-4 ####[facility] LABCLIA [id number] [place] [id number] [place] Methemoglobin (Bld) [Mass fraction] 1.7 % High 0.0-1.5 [facility] Comment on above: Order Comment: Speci men Type: VENOUS BLOOD SPECIMENOrdering Facility: [facility] Address: [address] [place], [place] [address] Performed By: #### 2 4344-4 ####[facility] LABCLIA [id number] [id number] [address] [place] O2 THERAPY NC = Nasal Cannula Normal [facility] Comment on above: Order Comment: Speci men Type: VENOUS BLOOD SPECIMENOrdering Facility: [facility] Address: [address] [place] [address] Performed By: #### 2 4344-4 ####[facility] LABCLIA [id number] [address] [place] [address] [place] Oxygen (BldV) [Partial pressure] 31 mm[Hg] Low 35-45 [facility] Comment on above: Order Comment: Speci men Type: VENOUS BLOOD SPECIMENOrdering Facility: [facility] Address: [address] [place] [address] Performed By: #### 2 4344-4 ####[facility] LABCLIA [id number] [address] [place] [address] [place] Oxygen adjusted to patient's actual temperature (BldV) [Partial pressure] 30 mmHg Low 35-45 [facility] Comment on above: Order Comment: Speci men Type: VENOUS BLOOD SPECIMENOrdering Facility: [facility] Address: [address] [place] [address] Performed By: #### 2 4344-4 ####[facility] LABCLIA [id number] [address] [place] [address] [place] Oxygen saturation in Venous blood 52 % Low 60-85 [facility] Comment on above: Order Comment: Speci men Type: VENOUS BLOOD SPECIMENOrdering Facility: [facility] Address: [address] [place] [address] Performed By: #### 2 4344-4 ####[facility] LABCLIA [id number] [address] [address] [place] Oxyhemoglobin (BldV) [Mass fraction] 51 % Low 60-85 [facility] Comment on above: Order Comment: Speci men Type: VENOUS BLOOD SPECIMENOrdering Facility: [facility] Address: [address] [place] [address] Performed By: #### 2 4344-4 ####[facility] LABCLIA [id number] [place] [id number] [place] pH (BldV) 7.38 [pH] Normal 7.32-7.42 [facility] Comment on above: Order Comment: Speci men Type: VENOUS BLOOD SPECIMENOrdering Facility: [facility] Address: [address] [place] [address] Performed By: #### 2 4344-4 ####[facility] LABIA [id number] [place] [address] [place] pH adjusted to patient's actual temperature (BldV) 7.39 Normal 7.32-7.42 [facility] Comment on above: Order Comment: Speci men Type: VENOUS BLOOD SPECIMENOrdering Facility: [facility] Address: [address] [place] [address] Performed By: #### 2 4344-4 ####[facility] LABIA [id number] [place] [address] [place] Potassium [Moles/Vol] 4.8 mmol/L Normal 3.5-5.0 [facility] Comment on above: Order Comment: Speci men Type: VENOUS BLOOD SPECIMENOrdering Facility: [facility] Address: [address] [place] [address] Performed By: #### 2 4344-4 ####[facility] LABIA [id number] [place] [id number] [place] Sodium [Moles/Vol] 132 mmol/L Low 136-144 [facility] Comment on above: Order Comment: Speci men Type: VENOUS BLOOD SPECIMENOrdering Facility: [facility] Address: [address] [place] [address] Performed By: #### 2 4344-4 ####[facility] LABIA [id number] [place] [id number] [place] Base excess Calc (BldV) [Moles/Vol] 0 mmol/L Normal 0-2 [facility] Comment on above: Order Comment: Speci men Type: VENOUS BLOOD SPECIMENOrdering Facility: [facility] Address: [address] [place] [address] Performed By: #### 2 4344-4 ####[facility] LABIA [id number] [place] [address] [place] Body temperature 96.08 [degF] Normal [facility] Comment on above: Order Comment: Speci men Type: VENOUS BLOOD SPECIMENOrdering Facility: [facility] Address: [address] [place] [address] Performed By: #### 2 4344-4 ####[facility] LABIA [id number] [place] [address] [place] Calcium.ionized (Bld) [Mass/Vol] 1.18 mmol/L Normal 1.08-1.30 [facility] Comment on above: Order Comment: Speci men Type: VENOUS BLOOD SPECIMENOrdering Facility: [facility] Address: [address] [place] [address] Performed By: #### 2 4344-4 ####[facility] LABIA [id number] [place] [address] [place] Calcium.ionized adjusted to pH 7.4 (BldA) [Moles/Vol] 1.15 mmol/L Normal 1.08-1.30 [facility] Comment on above: Order Comment: Speci men Type: VENOUS BLOOD SPECIMENOrdering Facility: [facility] Address: [address] [place], [place] [address] Performed By: #### 2 4344-4 ####[facility] LABIA [id number] [place] [address] [place] Carboxyhemoglobin (BldV) [Mass fraction] 1.3 % Normal 0.0-2.0 [facility] Comment on above: Order Comment: Speci men Type: VENOUS BLOOD SPECIMENOrdering Facility: [facility] Address: [address] [place], [place] [address] Result Comment: Carb oxyhemoglobin Reference Range for Smokers: 2.0-8.0% Performed By: #### 2 4344-4 ####[facility] LABCLIA [id number] [address] [address] [place] CO2 (BldV) [Partial pressure] 48 mm[Hg] Normal 42-55 [facility] Comment on above: Order Comment: Speci men Type: VENOUS BLOOD SPECIMENOrdering Facility: [facility] Address: [address] [place] [address] Performed By: #### 2 4344-4 ####[facility] LABCLIA [id number] [address] [address] [place] CO2 adjusted to patient's actual temperature (BldV) [Partial pressure] 45 mmHg Normal 42-55 [facility] Comment on above: Order Comment: Speci men Type: VENOUS BLOOD SPECIMENOrdering Facility: [facility] Address: [address] [place] [address] Performed By: #### 2 4344-4 ####[facility] LABCLIA [id number] [place] [id number] [place] Glucose [Mass/Vol] 255 mg/dL High 60-105 [facility] Comment on above: Order Comment: Speci men Type: VENOUS BLOOD SPECIMENOrdering Facility: [facility] Address: [address] [place] [address] Performed By: #### 2 4344-4 ####[facility] LABCLIA [id number] [place] [id number] [place] HCO3 (Bld) [Moles/Vol] 25 mmol/L Normal 24-28 [facility] Comment on above: Order Comment: Speci men Type: VENOUS BLOOD SPECIMENOrdering Facility: [facility] Address: [address] [place], [place] [address] Performed By: #### 2 4344-4 ####[facility] LABIA [id number] [place] [address] [place] Hematocrit (Bld) [Volume fraction] 30.3 % Low 39.0-51.0 [facility] Comment on above: Order Comment: Speci men Type: VENOUS BLOOD SPECIMENOrdering Facility: [facility] Address: [address] [place] [address] Performed By: #### 2 4344-4 ####[facility] LABIA [id number] [place] [address] [place] Hemoglobin (Bld) [Mass/Vol] 9.8 g/dL Low 13.0-17.0 [facility] Comment on above: Order Comment: Speci men Type: VENOUS BLOOD SPECIMENOrdering Facility: [facility] Address: [address] [place] [address] Performed By: #### 2 4344-4 ####[facility] LABIA [id number] [place] [address] [place] Lactate [Moles/Vol] 0.9 mmol/L Normal 0.5-2.2 [facility] Comment on above: Order Comment: Speci men Type: VENOUS BLOOD SPECIMENOrdering Facility: [facility] Address: [address] [place] [address] Performed By: #### 2 4344-4 ####[facility] LABIA [id number] [place] [address] [place] LITERS 2 Liters/min Normal [facility] Comment on above: Order Comment: Speci men Type: VENOUS BLOOD SPECIMENOrdering Facility: [facility] Address: [address] [place] [address] Performed By: #### 2 4344-4 ####[facility] LABIA [id number] [place] [id number] [place] Methemoglobin (Bld) [Mass fraction] 1.6 % High 0.0-1.5 [facility] Comment on above: Order Comment: Speci men Type: VENOUS BLOOD SPECIMENOrdering Facility: [facility] Address: [address] [place] [address] Performed By: #### 2 4344-4 ####[facility] LABCLIA [id number] [address] [place] [address] [place] O2 THERAPY NC = Nasal Cannula Normal [facility] Comment on above: Order Comment: Speci men Type: VENOUS BLOOD SPECIMENOrdering Facility: [facility] Address: [address] [place], [place] [address] Performed By: #### 2 4344-4 ####[facility] LABCLIA [id number] [address] [place] [address] [place] Oxygen (BldV) [Partial pressure] 42 mm[Hg] Normal 35-45 [facility] Comment on above: Order Comment: Speci men Type: VENOUS BLOOD SPECIMENOrdering Facility: [facility] Address: [address] [place] [address] Performed By: #### 2 4344-4 ####[facility] LABCLIA [id number] [address] [place] [address] [place] Oxygen adjusted to patient's actual temperature (BldV) [Partial pressure] 38 mmHg Normal 35-45 [facility] Comment on above: Order Comment: Speci men Type: VENOUS BLOOD SPECIMENOrdering Facility: [facility] Address: [address] [place] [address] Performed By: #### 2 4344-4 ####[facility] LABCLIA [id number] [address] [address] [place] Oxygen saturation in Venous blood 73 % Normal 60-85 [facility] Comment on above: Order Comment: Speci men Type: VENOUS BLOOD SPECIMENOrdering Facility: [facility] Address: [address] [place] [address] Performed By: #### 2 4344-4 ####[facility] LABCLIA [id number] [address] [address] [place] Oxyhemoglobin (BldV) [Mass fraction] 71 % Normal 60-85 [facility] Comment on above: Order Comment: Speci men Type: VENOUS BLOOD SPECIMENOrdering Facility: [facility] Address: [address] [place] [address] Performed By: #### 2 4344-4 ####[facility] LABIA [id number] [place] [address] [place] pH (BldV) 7.35 [pH] Normal 7.32-7.42 [facility] Comment on above: Order Comment: Speci men Type: VENOUS BLOOD SPECIMENOrdering Facility: [facility] Address: [address] [place] [address] Performed By: #### 2 4344-4 ####[facility] LABIA [id number] [place] [address] [place] pH adjusted to patient's actual temperature (BldV) 7.37 Normal 7.32-7.42 [facility] Comment on above: Order Comment: Speci men Type: VENOUS BLOOD SPECIMENOrdering Facility: [facility] Address: [address] [place] [address] Performed By: #### 2 4344-4 ####[facility] LABIA [id number] [place] [id number] [place] Potassium [Moles/Vol] 4.5 mmol/L Normal 3.5-5.0 [facility] Comment on above: Order Comment: Speci men Type: VENOUS BLOOD SPECIMENOrdering Facility: [facility] Address: [address] [place] [address] Performed By: #### 2 4344-4 ####[facility] LABIA [id number] [place] [id number] [place] Sodium [Moles/Vol] 135 mmol/L Low 136-144 [facility] Comment on above: Order Comment: Speci men Type: VENOUS BLOOD SPECIMENOrdering Facility: [facility] Address: [address] [place] [address] Performed By: #### 2 4344-4 ####[facility] LABIA [id number] [place] [address] [place] Base excess Calc (BldV) [Moles/Vol] 2 mmol/L Normal 0-2 [facility] Comment on above: Order Comment: Speci men Type: VENOUS BLOOD SPECIMENOrdering Facility: [facility] Address: [address] [place] [address] Performed By: #### 2 4344-4 ####[facility] LABIA [id number] [place] [address] [place] Calcium.ionized (Bld) [Mass/Vol] 1.16 mmol/L Normal 1.08-1.30 [facility] Comment on above: Order Comment: Speci men Type: VENOUS BLOOD SPECIMENOrdering Facility: [facility] Address: [address] [place] [address] Performed By: #### 2 4344-4 ####[facility] LABIA [id number] [place] [address] [place] Carboxyhemoglobin (BldV) [Mass fraction] 1.4 % Normal 0.0-2.0 [facility] Comment on above: Order Comment: Speci men Type: VENOUS BLOOD SPECIMENOrdering Facility: [facility] Address: [address] [place] [address] Result Comment: Carb oxyhemoglobin Reference Range for Smokers: 2.0-8.0% Performed By: #### 2 4344-4 ####[facility] LABIA [id number] [place] [address] [place] CO2 (BldV) [Partial pressure] 49 mm[Hg] Normal 42-55 [facility] Comment on above: Order Comment: Speci men Type: VENOUS BLOOD SPECIMENOrdering Facility: [facility] Address: [address] [place] [id number] Performed By: #### 2 4344-4 ####[facility] LABCLIA [id number] [address] [address] [place] CO2 adjusted to patient's actual temperature (BldV) [Partial pressure] 47 mmHg Normal 42-55 [facility] Comment on above: Order Comment: Speci men Type: VENOUS BLOOD SPECIMENOrdering Facility: [facility] Address: [address] [place], [place] [address] Performed By: #### 2 4344-4 ####[facility] LABCLIA [id number] [place] [id number] [place] Glucose [Mass/Vol] 125 mg/dL High 60-105 [facility] Comment on above: Order Comment: Speci men Type: VENOUS BLOOD SPECIMENOrdering Facility: [facility] Address: [address] [place] [address] Performed By: #### 2 4344-4 ####[facility] LABCLIA [id number] [place] [id number] [place] HCO3 (Bld) [Moles/Vol] 27 mmol/L Normal 24-28 [facility] Comment on above: Order Comment: Speci men Type: VENOUS BLOOD SPECIMENOrdering Facility: [facility] Address: [address] [place], [place] [address] Performed By: #### 2 4344-4 ####[facility] LABCLIA [id number] [address] [address] [place] Hematocrit (Bld) [Volume fraction] 28.8 % Low 39.0-51.0 [facility] Comment on above: Order Comment: Speci men Type: VENOUS BLOOD SPECIMENOrdering Facility: [facility] Address: [address] [place], [place] [address] Performed By: #### 2 4344-4 ####[facility] LABCLIA [id number] [address] [address] [place] Hemoglobin (Bld) [Mass/Vol] 9.3 g/dL Low 13.0-17.0 [facility] Comment on above: Order Comment: Speci men Type: VENOUS BLOOD SPECIMENOrdering Facility: [facility] Address: [address] [place], [place] [address] Performed By: #### 2 4344-4 ####[facility] LABCLIA [id number] [address] [address] [place] Methemoglobin (Bld) [Mass fraction] 1.1 % Normal 0.0-1.5 [facility] Comment on above: Order Comment: Speci men Type: VENOUS BLOOD SPECIMENOrdering Facility: [facility] Address: [address] [place] [address] Performed By: #### 2 4344-4 ####[facility] LABCLIA [id number] [place] [id number] [place] Oxygen (BldV) [Partial pressure] 40 mm[Hg] Normal 35-45 [facility] Comment on above: Order Comment: Speci men Type: VENOUS BLOOD SPECIMENOrdering Facility: [facility] Address: [address] [place], [place] [address] Performed By: #### 2 4344-4 ####[facility] LABCLIA [id number] [place] [id number] [place] Oxygen adjusted to patient's actual temperature (BldV) [Partial pressure] 38 mmHg Normal 35-45 [facility] Comment on above: Order Comment: Speci men Type: VENOUS BLOOD SPECIMENOrdering Facility: [facility] Address: [address] [place], [place] [address] Performed By: #### 2 4344-4 ####[facility] LABCLIA [id number] [address] [address] [place] Oxygen saturation in Venous blood 63 % Normal 60-85 [facility] Comment on above: Order Comment: Speci men Type: VENOUS BLOOD SPECIMENOrdering Facility: [facility] Address: [address] [place] [address] Performed By: #### 2 4344-4 ####[facility] LABCLIA [id number] [address] [address] [place] Oxyhemoglobin (BldV) [Mass fraction] 62 % Normal 60-85 [facility] Comment on above: Order Comment: Speci men Type: VENOUS BLOOD SPECIMENOrdering Facility: [facility] Address: [address] [place] [address] Performed By: #### 2 4344-4 ####[facility] LABCLIA [id number] [place] [address] [place] pH (BldV) 7.37 [pH] Normal 7.32-7.42 [facility] Comment on above: Order Comment: Speci men Type: VENOUS BLOOD SPECIMENOrdering Facility: [facility] Address: [address] [place] [address] Performed By: #### 2 4344-4 ####[facility] LABIA [id number] [place] [address] [place] pH adjusted to patient's actual temperature (BldV) 7.38 Normal 7.32-7.42 [facility] Comment on above: Order Comment: Speci men Type: VENOUS BLOOD SPECIMENOrdering Facility: [facility] Address: [address] [place] [address] Performed By: #### 2 4344-4 ####[facility] LABIA [id number] [place] [id number] [place] Potassium [Moles/Vol] 3.9 mmol/L Normal 3.5-5.0 [facility] Comment on above: Order Comment: Speci men Type: VENOUS BLOOD SPECIMENOrdering Facility: [facility] Address: [address] [place] [address] Performed By: #### 2 4344-4 ####[facility] LABCLIA [id number] [place] [address] [place] Sodium [Moles/Vol] 135 mmol/L Low 136-144 [facility] Comment on above: Order Comment: Speci men Type: VENOUS BLOOD SPECIMENOrdering Facility: [facility] Address: [address] [place] [address] Performed By: #### 2 4344-4 ####[facility] LABIA [id number] [place] [address] [place] Base excess Calc (BldV) [Moles/Vol] 1 mmol/L Normal 0-2 [facility] Comment on above: Order Comment: Speci men Type: VENOUS BLOOD SPECIMENOrdering Facility: [facility] Address: [address] [place] [address] Performed By: #### 2 4344-4 ####[facility] LABIA [id number] [place] [address] [place] Body temperature 97.16 [degF] Normal [facility] Comment on above: Order Comment: Speci men Type: VENOUS BLOOD SPECIMENOrdering Facility: [facility] Address: [address] [place] [address] Performed By: #### 2 4344-4 ####[facility] LABIA [id number] [place] [address] [place] Calcium.ionized (Bld) [Mass/Vol] 1.17 mmol/L Normal 1.08-1.30 [facility] Comment on above: Order Comment: Speci men Type: VENOUS BLOOD SPECIMENOrdering Facility: [facility] Address: [address] [place] [address] Performed By: #### 2 4344-4 ####[facility] LABIA [id number] [place] [address] [place] Calcium.ionized adjusted to pH 7.4 (BldA) [Moles/Vol] 1.13 mmol/L Normal 1.08-1.30 [facility] Comment on above: Order Comment: Speci men Type: VENOUS BLOOD SPECIMENOrdering Facility: [facility] Address: [address] [place] [address] Performed By: #### 2 4344-4 ####[facility] LABCLIA [id number] [place] [address] [place] Carboxyhemoglobin (BldV) [Mass fraction] 1.2 % Normal 0.0-2.0 [facility] Comment on above: Order Comment: Speci men Type: VENOUS BLOOD SPECIMENOrdering Facility: [facility] Address: [address] [place] [address] Result Comment: Carb oxyhemoglobin Reference Range for Smokers: 2.0-8.0% Performed By: #### 2 4344-4 ####[facility] LABCLIA [id number] [place] [address] [place] CO2 (BldV) [Partial pressure] 51 mm[Hg] Normal 42-55 [facility] Comment on above: Order Comment: Speci men Type: VENOUS BLOOD SPECIMENOrdering Facility: [facility] Address: [address] [place] [address] Performed By: #### 2 4344-4 ####[facility] LABCLIA [id number] [place] [address] [place] CO2 adjusted to patient's actual temperature (BldV) [Partial pressure] 49 mmHg Normal 42-55 [facility] Comment on above: Order Comment: Speci men Type: VENOUS BLOOD SPECIMENOrdering Facility: [facility] Address: [address] [place] [address] Performed By: #### 2 4344-4 ####[facility] LABCLIA [id number] [place] [id number] [place] Glucose [Mass/Vol] 142 mg/dL High 60-105 [facility] Comment on above: Order Comment: Speci men Type: VENOUS BLOOD SPECIMENOrdering Facility: [facility] Address: [address] [place], [place] [address] Performed By: #### 2 4344-4 ####[facility] LABCLIA [id number] [address] [address] [place] HCO3 (Bld) [Moles/Vol] 26 mmol/L Normal 24-28 [facility] Comment on above: Order Comment: Speci men Type: VENOUS BLOOD SPECIMENOrdering Facility: [facility] Address: [address] [place] [address] Performed By: #### 2 4344-4 ####[facility] LABIA [id number] [place] [address] [place] Hematocrit (Bld) [Volume fraction] 27.1 % Low 39.0-51.0 [facility] Comment on above: Order Comment: Speci men Type: VENOUS BLOOD SPECIMENOrdering Facility: [facility] Address: [address] [place] [address] Performed By: #### 2 4344-4 ####[facility] LABIA [id number] [place] [address] [place] Hemoglobin (Bld) [Mass/Vol] 8.7 g/dL Low 13.0-17.0 [facility] Comment on above: Order Comment: Speci men Type: VENOUS BLOOD SPECIMENOrdering Facility: [facility] Address: [address] [place] [address] Performed By: #### 2 4344-4 ####[facility] LABIA [id number] [place] [id number] [place] Lactate [Moles/Vol] 1.0 mmol/L Normal 0.5-2.2 [facility] Comment on above: Order Comment: Speci men Type: VENOUS BLOOD SPECIMENOrdering Facility: [facility] Address: [address] [place] [address] Performed By: #### 2 4344-4 ####[facility] LABCLIA [id number] [address] [place] [address] [place] LITERS 3 Liters/min Normal [facility] Comment on above: Order Comment: Speci men Type: VENOUS BLOOD SPECIMENOrdering Facility: [facility] Address: [address] [place] [address] Performed By: #### 2 4344-4 ####[facility] LABCLIA [id number] [address] [place] [address] [place] Methemoglobin (Bld) [Mass fraction] 1.2 % Normal 0.0-1.5 [facility] Comment on above: Order Comment: Speci men Type: VENOUS BLOOD SPECIMENOrdering Facility: [facility] Address: [address] [place], [place] [address] Performed By: #### 2 4344-4 ####[facility] LABCLIA [id number] [address] [address] [place] O2 THERAPY NC = Nasal Cannula Normal [facility] Comment on above: Order Comment: Speci men Type: VENOUS BLOOD SPECIMENOrdering Facility: [facility] Address: [address] [place] [address] Performed By: #### 2 4344-4 ####[facility] LABCLIA [id number] [address] [address] [place] Oxygen (BldV) [Partial pressure] 34 mm[Hg] Low 35-45 [facility] Comment on above: Order Comment: Speci men Type: VENOUS BLOOD SPECIMENOrdering Facility: [facility] Address: [address] [place] [address] Performed By: #### 2 4344-4 ####[facility] LABCLIA [id number] [address] [place] [address] [place] Oxygen adjusted to patient's actual temperature (BldV) [Partial pressure] 32 mmHg Low 35-45 [facility] Comment on above: Order Comment: Speci men Type: VENOUS BLOOD SPECIMENOrdering Facility: [facility] Address: [address] [place] [address] Performed By: #### 2 4344-4 ####[facility] LABCLIA [id number] [address] [place] [address] [place] Oxygen saturation in Venous blood 55 % Low 60-85 [facility] Comment on above: Order Comment: Speci men Type: VENOUS BLOOD SPECIMENOrdering Facility: [facility] Address: [address] [place], [place] [address] Performed By: #### 2 4344-4 ####[facility] LABCLIA [id number] [address] [place] [address] [place] Oxyhemoglobin (BldV) [Mass fraction] 54 % Low 60-85 [facility] Comment on above: Order Comment: Speci men Type: VENOUS BLOOD SPECIMENOrdering Facility: [facility] Address: [address] [place], [place] [address] Performed By: #### 2 4344-4 ####[facility] LABCLIA [id number] [address] [address] [place] pH (BldV) 7.34 [pH] Normal 7.32-7.42 [facility] Comment on above: Order Comment: Speci men Type: VENOUS BLOOD SPECIMENOrdering Facility: [facility] Address: [address] [place] [address] Performed By: #### 2 4344-4 ####[facility] LABCLIA [id number] [address] [place] [address] [place] pH adjusted to patient's actual temperature (BldV) 7.35 Normal 7.32-7.42 [facility] Comment on above: Order Comment: Speci men Type: VENOUS BLOOD SPECIMENOrdering Facility: [facility] Address: [address] [place] [address] Performed By: #### 2 4344-4 ####[facility] LABCLIA [id number] [place] [id number] [place] Potassium [Moles/Vol] 3.7 mmol/L Normal 3.5-5.0 [facility] Comment on above: Order Comment: Speci men Type: VENOUS BLOOD SPECIMENOrdering Facility: [facility] Address: [address] [place] [address] Performed By: #### 2 4344-4 ####[facility] LABCLIA [id number] [place] [address] [place] Sodium [Moles/Vol] 136 mmol/L Normal 136-144 [facility] Comment on above: Order Comment: Speci men Type: VENOUS BLOOD SPECIMENOrdering Facility: [facility] Address: [address] [place] [address] Performed By: #### 2 4344-4 ####[facility] LABCLIA [id number] [place] [address] [place] BASE DEFICIT, VENOUS -1 mmol/L Normal -2-0 [facility] Comment on above: Order Comment: Speci men Type: VENOUS BLOOD SPECIMENOrdering Facility: [facility] Address: [address] [place] [address] Performed By: #### 2 4344-4 ####[facility] LABCLIA [id number] [place] [address] [place] Body temperature 97.88 [degF] Normal [facility] Comment on above: Order Comment: Speci men Type: VENOUS BLOOD SPECIMENOrdering Facility: [facility] Address: [address] [place] [address] Performed By: #### 2 4344-4 ####[facility] LABCLIA [id number] [place] [address] [place] Calcium.ionized (Bld) [Mass/Vol] 1.15 mmol/L Normal 1.08-1.30 [facility] Comment on above: Order Comment: Speci men Type: VENOUS BLOOD SPECIMENOrdering Facility: [facility] Address: [address] [place] [address] Performed By: #### 2 4344-4 ####[facility] LABCLIA [id number] [place] [address] [place] Calcium.ionized adjusted to pH 7.4 (BldA) [Moles/Vol] 1.09 mmol/L Normal 1.08-1.30 [facility] Comment on above: Order Comment: Speci men Type: VENOUS BLOOD SPECIMENOrdering Facility: [facility] Address: [address] [place] [address] Performed By: #### 2 4344-4 ####[facility] LABIA [id number] [place] [address] [place] Carboxyhemoglobin (BldV) [Mass fraction] 1.0 % Normal 0.0-2.0 [facility] Comment on above: Order Comment: Speci men Type: VENOUS BLOOD SPECIMENOrdering Facility: [facility] Address: [address] [place] [address] Result Comment: Carb oxyhemoglobin Reference Range for Smokers: 2.0-8.0% Performed By: #### 2 4344-4 ####[facility] LABIA [id number] [place] [address] [place] CO2 (BldV) [Partial pressure] 51 mm[Hg] Normal 42-55 [facility] Comment on above: Order Comment: Speci men Type: VENOUS BLOOD SPECIMENOrdering Facility: [facility] Address: [address] [place], [place] [address] Performed By: #### 2 4344-4 ####[facility] LABCLIA [id number] [place] [id number] [place] CO2 adjusted to patient's actual temperature (BldV) [Partial pressure] 50 mmHg Normal 42-55 [facility] Comment on above: Order Comment: Speci men Type: VENOUS BLOOD SPECIMENOrdering Facility: [facility] Address: [address] [place], [place] [address] Performed By: #### 2 4344-4 ####[facility] LABCLIA [id number] [address] [address] [place] Glucose [Mass/Vol] 206 mg/dL High 60-105 [facility] Comment on above: Order Comment: Speci men Type: VENOUS BLOOD SPECIMENOrdering Facility: [facility] Address: [address] [place] [address] Performed By: #### 2 4344-4 ####[facility] LABCLIA [id number] [place] [id number] [place] HCO3 (Bld) [Moles/Vol] 25 mmol/L Normal 24-28 [facility] Comment on above: Order Comment: Speci men Type: VENOUS BLOOD SPECIMENOrdering Facility: [facility] Address: [address] [place] [address] Performed By: #### 2 4344-4 ####[facility] LABCLIA [id number] [place] [id number] [place] Hematocrit (Bld) [Volume fraction] 26.3 % Low 39.0-51.0 [facility] Comment on above: Order Comment: Speci men Type: VENOUS BLOOD SPECIMENOrdering Facility: [facility] Address: [address] [place] [address] Performed By: #### 2 4344-4 ####[facility] LABCLIA [id number] [address] [address] [place] Hemoglobin (Bld) [Mass/Vol] 8.5 g/dL Low 13.0-17.0 [facility] Comment on above: Order Comment: Speci men Type: VENOUS BLOOD SPECIMENOrdering Facility: [facility] Address: [address] [place], [place] [address] Performed By: #### 2 4344-4 ####[facility] LABCLIA [id number] [address] [address] [place] Lactate [Moles/Vol] 1.2 mmol/L Normal 0.5-2.2 [facility] Comment on above: Order Comment: Speci men Type: VENOUS BLOOD SPECIMENOrdering Facility: [facility] Address: [address] [place], [place] [address] Performed By: #### 2 4344-4 ####[facility] LABCLIA [id number] [place] [id number] [place] LITERS 3 Liters/min Normal [facility] Comment on above: Order Comment: Speci men Type: VENOUS BLOOD SPECIMENOrdering Facility: [facility] Address: [address] [place] [address] Performed By: #### 2 4344-4 ####[facility] LABIA [id number] [place] [address] [place] Methemoglobin (Bld) [Mass fraction] 1.3 % Normal 0.0-1.5 [facility] Comment on above: Order Comment: Speci men Type: VENOUS BLOOD SPECIMENOrdering Facility: [facility] Address: [address] [place] [address] Performed By: #### 2 4344-4 ####[facility] LABIA [id number] [place] [id number] [place] O2 THERAPY NC = Nasal Cannula Normal [facility] Comment on above: Order Comment: Speci men Type: VENOUS BLOOD SPECIMENOrdering Facility: [facility] Address: [address] [place] [address] Performed By: #### 2 4344-4 ####[facility] LABCLIA [id number] [address] [address] [place] Oxygen (BldV) [Partial pressure] 35 mm[Hg] Normal 35-45 [facility] Comment on above: Order Comment: Speci men Type: VENOUS BLOOD SPECIMENOrdering Facility: [facility] Address: [address] [place], [place] [address] Performed By: #### 2 4344-4 ####[facility] LABCLIA [id number] [place] [address] [place] Oxygen adjusted to patient's actual temperature (BldV) [Partial pressure] 34 mmHg Low 35-45 [facility] Comment on above: Order Comment: Speci men Type: VENOUS BLOOD SPECIMENOrdering Facility: [facility] Address: [address] [place] [address] Performed By: #### 2 4344-4 ####[facility] LABCLIA [id number] [place] [address] [place] Oxygen saturation in Venous blood 57 % Low 60-85 [facility] Comment on above: Order Comment: Speci men Type: VENOUS BLOOD SPECIMENOrdering Facility: [facility] Address: [address] [place] [address] Performed By: #### 2 4344-4 ####[facility] LABCLIA [id number] [place] [address] [place] Oxyhemoglobin (BldV) [Mass fraction] 56 % Low 60-85 [facility] Comment on above: Order Comment: Speci men Type: VENOUS BLOOD SPECIMENOrdering Facility: [facility] Address: [address] [place] [address] Performed By: #### 2 4344-4 ####[facility] LABCLIA [id number] [place] [id number] [place] pH (BldV) 7.31 [pH] Low 7.32-7.42 [facility] Comment on above: Order Comment: Speci men Type: VENOUS BLOOD SPECIMENOrdering Facility: [facility] Address: [address] [place], [place] [address] Performed By: #### 2 4344-4 ####[facility] LABCLIA [id number] [place] [address] [place] pH adjusted to patient's actual temperature (BldV) 7.32 Normal 7.32-7.42 [facility] Comment on above: Order Comment: Speci men Type: VENOUS BLOOD SPECIMENOrdering Facility: [facility] Address: [address] [place] [address] Performed By: #### 2 4344-4 ####[facility] LABCLIA [id number] [place] [id number] [place] Potassium [Moles/Vol] 3.8 mmol/L Normal 3.5-5.0 [facility] Comment on above: Order Comment: Speci men Type: VENOUS BLOOD SPECIMENOrdering Facility: [facility] Address: [address] [place] [address] Performed By: #### 2 4344-4 ####[facility] LABCLIA [id number] [place] [address] [place] Sodium [Moles/Vol] 134 mmol/L Low 136-144 [facility] Comment on above: Order Comment: Speci men Type: VENOUS BLOOD SPECIMENOrdering Facility: [facility] Address: [address] [place] [address] Performed By: #### 2 4344-4 ####[facility] LABCLIA [id number] [place] [id number] [place] IMMUNOFIXATION SCREEN, SERUM on 10-19-2024 MPA RESULT No M protein is identified. Normal No M protein is identified. [facility] Comment on above: Order Comment: Speci men Type: BLOOD SPECIMENOrdering Facility: [facility] Address: [address] [place] [address] Performed By: #### I [facility] ####[facility] LABCLIA [id number] [place] [id number] [place] STAFF REVIEW (MPA) Reviewed by Dr. Hattie Lopez MD [facility] Comment on above: Order Comment: Speci men Type: BLOOD SPECIMENOrdering Facility: [facility] Address: [address] [place] [address] Performed By: #### I FESC ####[facility] LABIA [id number] [place] [address] [place] KAPPA/HANNA,FREE,SERon 2024 Immunoglobulin light chains.kappa.free (S) [Mass/Vol] 38.7 mg/L High 3.3-19.4 [facility] Comment on above: Order Comment: Speci men Type: BLOOD SPECIMENOrdering Facility: [facility] Address: [address] [place] [address] Result Comment: Rare ly, increased serum free light chains levels may not be detected or accurately quantified due to prozone phenomenon or in high viscosity samples using this immunoturbidimetric assay. Correlation with other laboratory results and clinical findings is recommended.The [place] Free Light Chain was performed using the Binding Site Optilite immunoturbidimetric method. Result obtained with different assay methods or kits cannot be used interchangeably. Performed By: #### K LFRS ####[facility] LABIA [id number] [place] [address] [place] Immunoglobulin light chains.kappa/Immunoglob ulin light chains.lambda (S) [Mass ratio] 0.91 Normal 0.26-1.65 [facility] Comment on above: Order Comment: Speci men Type: BLOOD SPECIMENOrdering Facility: [facility] Address: [address] [place] [address] Performed By: #### K LFRS ####[facility] [id number] [place] [address] [place] Immunoglobulin light chains.lambda.free [Mass/Vol] 42.3 mg/L High 5.7-26.3 [facility] Comment on above: Order Comment: Speci men Type: BLOOD SPECIMENOrdering Facility: [facility] Address: [address] [place] [address] Result Comment: Rare ly, increased serum free [...] used interchangeably. Performed By: #### K LFRS ####[facility] LABCLIA [id number] [place] [address] [place] MONOCLONAL PROT UR W/INTERPo n 10-19-2024 STAFF REVIEW (UMPA) Reviewed by Dr. Hattie Lopez MD Normal [facility] Comment on above: Order Comment: Speci men Type: URINE SPECIMENOrdering Facility: [facility] Address: [address] [place] [address] Performed By: #### U RMPA ####[facility] LABIA [id number] [address] [place] [facility] UMPA RESULT No M protein is identified. Normal No M protein is identified. [facility] Comment on above: Order Comment: Speci men Type: URINE SPECIMENOrdering Facility: [facility] Address: [address] [place] [address] Performed By: #### U RMPA ####[facility] LABCLIA [id number] [place] [id number] [place] Magnesium SerPl-mCncon 10-19 Magnesium [Mass/Vol] 3.2 mg/dL High 1.7-2.3 [facility] Comment on above: Order Comment: Speci men Type: BLOOD SPECIMENOrdering Facility: [facility] Address: [address] [place] [address] Result Comment: Resu lt rechecked. Performed By: #### 2 4323-8, 63166-6, 2777-1 ####[facility] LABCLIA [id number] [place] [id number] [place] Phosphate SerPl-mCncon 10-19 Phosphate [Mass/Vol] 3.5 mg/dL Normal 2.7-4.8 [facility] Comment on above: Order Comment: Speci men Type: BLOOD SPECIMENOrdering Facility: [facility] Address: [address] [place] [address] Performed By: #### 2 4323-8, 45964-9, 2777-1 ####[facility] LABCLIA [id number] [place] [id number] [place] Prot/Creat Uron 10-19-2024 Protein/Creatinine (U) [Mass ratio] 0.44 mg/mg High <0.15 [facility] Comment on above: Order Comment: Speci men Type: URINE SPECIMENOrdering Facility: [facility] Address: [address] [place] [address] Result Comment: Adul t Proteinuria Categories:<0.15 mg/mg is considered normal to mildly increased0.15 - 0.50 mg/mg is considered moderately increased>0.50 mg/mg is considered severely increasedKDIGO. (2013). KDIGO 2012 Clinical Practice Guideline for the Evaluation and Management of Chronic Kidney Disease. Official Journal of the International Society of Nephrology, 3(1), 1-150. Performed By: #### 2 890-2 ####[facility] LABIA [id number] [place] [id number] [place] Protein/Creatinine (U) [Mass ratio]on 10-19-2024 Creatinine (U) [Mass/Vol] 9.1 mg/dL Low 20.0-300.0 [facility] Comment on above: Order Comment: Speci men Type: URINE SPECIMENOrdering Facility: [facility] Address: [address] [place] [address] Performed By: #### 2 890-2 ####[facility] LABCLIA [id number] [place] [id number] [place] Protein (U) [Mass/Vol] 4 mg/dL Normal 0-20 [facility] Comment on above: Order Comment: Speci men Type: URINE SPECIMENOrdering Facility: [facility] Address: [address] [place] [address] Performed By: #### 2 890-2 ####[facility] LABIA [id number] [place] [address] [place] THERAPY NTon 10-19-2024 THERAPY NT Normal [facility] XR CHEST 1V FRONTAL PORTon 0 10-19-2024 XR CHEST 1V FRONTAL PORT Normal [facility] aPTT PPPon 10-19-2024 aPTT Coag (PPP) [Time] s High 23.0-32.4 [facility] Comment on above: Order Comment: Speci men Type: BLOOD SPECIMENOrdering Facility: [facility] Address: [address] [place] [address] Result Comment: Resu lt rechecked.Sample checked for clot. Performed By: #### 3 217-7, 94544-2 ####[facility] LABIA [id number] [place] [address] [place] aPTT Coag (PPP) [Time] 130.0 s High 23.0-32.4 [facility] Comment on above: Order Comment: Speci men Type: BLOOD SPECIMENOrdering Facility: [facility] Address: [address] [place] [address] Result Comment: Resu lt rechecked.Sample checked for clot. Performed By: #### 1 4979-9 ####[facility] LABIA [id number] [place] [id number] [place] CASE MGT INIT ASSESon 2024 CASE MGT INIT ASSES Normal [facility] CBC W Auto Differential pane l (Bld)on 10-18-2024 Basophils (Bld) [#/Vol] 0.04 10*3/uL Normal <0.11 [facility] Comment on above: Order Comment: Speci men Type: BLOOD SPECIMENOrdering Facility: [facility] Address: [address] [place] [address] Performed By: #### 5 7021-8 ####[facility] LABCLIA [id number] [place] [address] [place] Basophils/100 WBC (Bld) 0.9 % Normal C [facility] Comment on above: Order Comment: Speci men Type: BLOOD SPECIMENOrdering Facility: [facility] Address: [address] [place] [address] Performed By: #### 5 7021-8 ####[facility] LABCLIA [id number] [place] [address] [place] Differential cell count method Nom (Bld) Auto Normal [facility] Comment on above: Order Comment: Speci men Type: BLOOD SPECIMENOrdering Facility: [facility] Address: [address] [place] [address] Performed By: #### 5 7021-8 ####[facility] LABCLIA [id number] [address] [place] Eosinophils (Bld) [#/Vol] 0.09 10*3/uL Normal <0.46 [facility] Comment on above: Order Comment: Speci men Type: BLOOD SPECIMENOrdering Facility: [facility] Address: [address] [place] [address] Performed By: #### 5 7021-8 ####[facility] LABCLIA [id number] [address] [place] Eosinophils/100 WBC (Bld) 2.0 % Normal [facility] Comment on above: Order Comment: Speci men Type: BLOOD SPECIMENOrdering Facility: [facility] Address: [address] [place] [address] Performed By: #### 5 7021-8 ####[facility] LABCLIA [id number] [place] [address] [place] Erythrocyte distribution width (RBC) [Ratio] 17.0 % High 11.5-15.0 [facility] Comment on above: Order Comment: Speci men Type: BLOOD SPECIMENOrdering Facility: [facility] Address: [address] [place] [address] Performed By: #### 5 7021-8 ####[facility] LABCLIA [id number] [place] [address] [place] Hematocrit (Bld) [Volume fraction] 28.4 % Low 39.0-51.0 [facility] Comment on above: Order Comment: Speci men Type: BLOOD SPECIMENOrdering Facility: [facility] Address: [address] [place] [address] Performed By: #### 5 7021-8 ####[facility] LABIA [id number] [place] [address] [place] Hemoglobin (Bld) [Mass/Vol] 8.9 g/dL Low 13.0-17.0 [facility] Comment on above: Order Comment: Speci men Type: BLOOD SPECIMENOrdering Facility: [facility] Address: [address] [place] [address] Performed By: #### 5 7021-8 ####[facility] LABIA [id number] [place] [address] [place] Immature granulocytes (Bld) [#/Vol] 10*3/uL Normal <0.10 [facility] Comment on above: Order Comment: Speci men Type: BLOOD SPECIMENOrdering Facility: [facility] Address: [address] [place] [address] Performed By: #### 5 7021-8 ####[facility] LABIA [id number] [place] [address] [place] Immature granulocytes/100 WBC (Bld) 0.2 % Normal [facility] Comment on above: Order Comment: Speci men Type: BLOOD SPECIMENOrdering Facility: [facility] Address: [address] [place] [address] Performed By: #### 5 7021-8 ####[facility] LABCLIA [id number] [place] [address] [place] Lymphocytes (Bld) [#/Vol] 0.74 10*3/uL Low 1.00-4.00 [facility] Comment on above: Order Comment: Speci men Type: BLOOD SPECIMENOrdering Facility: [facility] Address: [address] [place] [address] Performed By: #### 5 7021-8 ####[facility] LABCLIA [id number] [place] [address] [place] Lymphocytes/100 WBC (Bld) 16.6 % Normal [facility] Comment on above: Order Comment: Speci men Type: BLOOD SPECIMENOrdering Facility: [facility] Address: [address] [place] [address] Performed By: #### 5 7021-8 ####[facility] LABCLIA [id number] [place] [address] [place] MCH (RBC) [Entitic mass] 32.0 pg Normal 26.0-34.0 [facility] Comment on above: Order Comment: Speci men Type: BLOOD SPECIMENOrdering Facility: [facility] Address: [address] [place] [address] Performed By: #### 5 7021-8 ####[facility] LABCLIA [id number] [place] [address] [place] MCHC (RBC) [Mass/Vol] 31.3 g/dL Normal 30.5-36.0 [facility] Comment on above: Order Comment: Speci men Type: BLOOD SPECIMENOrdering Facility: [facility] Address: [address] [place] [address] Performed By: #### 5 7021-8 ####[facility] LABCLIA [id number] [place] [address] [place] MCV (RBC) [Entitic vol] 102.2 fL High 80.0-100.0 C [facility] Comment on above: Order Comment: Speci men Type: BLOOD SPECIMENOrdering Facility: [facility] Address: [address] [place] [address] Performed By: #### 5 7021-8 ####[facility] LABCLIA [id number] [place] [address] [place] Monocytes (Bld) [#/Vol] 0.65 10*3/uL Normal <0.87 [facility] Comment on above: Order Comment: Speci men Type: BLOOD SPECIMENOrdering Facility: [facility] Address: [address] [place] [address] Performed By: #### 5 7021-8 ####[facility] LABCLIA [id number] [place] [address] [place] Monocytes/100 WBC (Bld) 14.6 % Normal C [facility] Comment on above: Order Comment: Speci men Type: BLOOD SPECIMENOrdering Facility: [facility] Address: [address] [place] [address] Performed By: #### 5 7021-8 ####[facility] LABCLIA [id number] [place] [address] [place] Neutrophils (Bld) [#/Vol] 2.93 10*3/uL Normal 1.45-7.50 [facility] Comment on above: Order Comment: Speci men Type: BLOOD SPECIMENOrdering Facility: [facility] Address: [address] [place] [address] Performed By: #### 5 7021-8 ####[facility] LABCLIA [id number] [place] [address] [place] Neutrophils/100 WBC (Bld) 65.7 % Normal [facility] Comment on above: Order Comment: Speci men Type: BLOOD SPECIMENOrdering Facility: [facility] Address: [address] [place] [address] Performed By: #### 5 7021-8 ####[facility] LABCLIA [id number] [place] [address] [place] Nucleated RBC (Bld) [#/Vol] 10*3/uL Normal <0.01 [facility] Comment on above: Order Comment: Speci men Type: BLOOD SPECIMENOrdering Facility: [facility] Address: [address] [place] [address] Performed By: #### 5 7021-8 ####[facility] LABCLIA [id number] [place] [address] [place] Nucleated RBC/100 WBC (Bld) [Ratio] 0.0 /100 WBC Normal [facility] Comment on above: Order Comment: Speci men Type: BLOOD SPECIMENOrdering Facility: [facility] Address: [address] [place] [address] Performed By: #### 5 7021-8 ####[facility] LABIA [id number] [place] [address] [place] Platelet mean volume (Bld) [Entitic vol] 12.2 fL Normal 9.0-12.7 [facility] Comment on above: Order Comment: Speci men Type: BLOOD SPECIMENOrdering Facility: [facility] Address: [address] [place] [address] Performed By: #### 5 7021-8 ####[facility] LABCLIA [id number] [place] [id number] [place] Platelets (Bld) [#/Vol] 120 10*3/uL Low 150-400 [facility] Comment on above: Order Comment: Speci men Type: BLOOD SPECIMENOrdering Facility: [facility] Address: [address] [place] [address] Performed By: #### 5 7021-8 ####[facility] LABCLIA [id number] [place] [address] [place] RBC (Bld) [#/Vol] 2.78 10*6/uL Low 4.20-6.00 [facility] Comment on above: Order Comment: Speci men Type: BLOOD SPECIMENOrdering Facility: [facility] Address: [address] [place] [address] Performed By: #### 5 7021-8 ####[facility] LABCLIA [id number] [place] [address] [place] WBC (Bld) [#/Vol] 4.46 10*3/uL Normal 3.70-11.00 [facility] Comment on above: Order Comment: Speci men Type: BLOOD SPECIMENOrdering Facility: [facility] Address: [address] [place] [address] Performed By: #### 5 7021-8 ####[facility] LABCLIA [id number] [place] [address] [place] CBC panel Auto (Bld)on 10-18 Erythrocyte distribution width (RBC) [Ratio] 17.0 % High 11.5-15.0 [facility] Comment on above: Order Comment: Speci men Type: BLOOD SPECIMENOrdering Facility: [facility] Address: [address] [place] [address] Performed By: #### 5 8410-2 ####[facility] LABCLIA [id number] [place] [address] [place] Hematocrit (Bld) [Volume fraction] 29.7 % Low 39.0-51.0 [facility] Comment on above: Order Comment: Speci men Type: BLOOD SPECIMENOrdering Facility: [facility] Address: [address] [place] [address] Performed By: #### 5 8410-2 ####[facility] LABCLIA [id number] [place] [address] [place] Hemoglobin (Bld) [Mass/Vol] 9.0 g/dL Low 13.0-17.0 [facility] Comment on above: Order Comment: Speci men Type: BLOOD SPECIMENOrdering Facility: [facility] Address: [address] [place] [address] Performed By: #### 5 8410-2 ####[facility] LABIA [id number] [place] [address] [place] MCH (RBC) [Entitic mass] 31.7 pg Normal 26.0-34.0 [facility] Comment on above: Order Comment: Speci men Type: BLOOD SPECIMENOrdering Facility: [facility] Address: [address] [place] [address] Performed By: #### 5 8410-2 ####[facility] LABIA [id number] [place] [address] [place] MCHC (RBC) [Mass/Vol] 30.3 g/dL Low 30.5-36.0 [facility] Comment on above: Order Comment: Speci men Type: BLOOD SPECIMENOrdering Facility: [facility] Address: [address] [place] [address] Performed By: #### 5 8410-2 ####[facility] LABIA [id number] [place] [address] [place] MCV (RBC) [Entitic vol] 104.6 fL High 80.0-100.0 C [facility] Comment on above: Order Comment: Speci men Type: BLOOD SPECIMENOrdering Facility: [facility] Address: [address] [place] [address] Performed By: #### 5 8410-2 ####[facility] LABIA [id number] [place] [address] [place] Nucleated RBC (Bld) [#/Vol] 10*3/uL Normal <0.01 [facility] Comment on above: Order Comment: Speci men Type: BLOOD SPECIMENOrdering Facility: [facility] Address: [address] [place] [address] Performed By: #### 5 8410-2 ####[facility] LABCLIA [id number] [place] [address] [place] Platelet mean volume (Bld) [Entitic vol] 12.1 fL Normal 9.0-12.7 [facility] Comment on above: Order Comment: Speci men Type: BLOOD SPECIMENOrdering Facility: [facility] Address: [address] [place] [address] Performed By: #### 5 8410-2 ####[facility] LABCLIA [id number] [place] [address] [place] Platelets (Bld) [#/Vol] 135 10*3/uL Low 150-400 [facility] Comment on above: Order Comment: Speci men Type: BLOOD SPECIMENOrdering Facility: [facility] Address: [address] [place] [address] Performed By: #### 5 8410-2 ####[facility] LABCLIA [id number] [place] [address] [place] RBC (Bld) [#/Vol] 2.84 10*6/uL Low 4.20-6.00 [facility] Comment on above: Order Comment: Speci men Type: BLOOD SPECIMENOrdering Facility: [facility] Address: [address] [place] [address] Performed By: #### 5 8410-2 ####[facility] LABCLIA [id number] [place] [id number] [place] WBC (Bld) [#/Vol] 4.80 10*3/uL Normal 3.70-11.00 [facility] Comment on above: Order Comment: Speci men Type: BLOOD SPECIMENOrdering Facility: [facility] Address: [address] [place] [address] Performed By: #### 5 8410-2 ####[facility] LABCLIA [id number] [facility] [address] [place] [address] [place] CT ABD/PEL W IVCONon 025 CT ABD/PEL W IVCON Normal [facility] CT CHEST W IVCONon 5 CT CHEST W IVCON Normal [facility] Comprehensive metabolic 2000 panelon 10-18-2024 Albumin [Mass/Vol] 2.7 g/dL Low 3.9-4.9 [facility] Comment on above: Order Comment: Speci men Type: BLOOD SPECIMENOrdering Facility: [facility] Address: [address] [place] [address] Performed By: #### 2 4323-8, ####[facility] LABCLIA [id number] [address] [address] [place] ALP [Catalytic activity/Vol] 93 U/L Normal 38-113 [facility] Comment on above: Order Comment: Speci men Type: BLOOD SPECIMENOrdering Facility: [facility] Address: [address] [place] [address] Performed By: #### 2 4323-8, ####[facility] LABCLIA [id number] [address] [address] [place] ALT [Catalytic activity/Vol] 12 U/L Normal 10-54 [facility] Comment on above: Order Comment: Speci men Type: BLOOD SPECIMENOrdering Facility: [facility] Address: [address] [place] [address] Performed By: #### 2 4323-8, ####[facility] LABCLIA [id number] [address] [address] [place] Anion gap [Moles/Vol] 11 mmol/L Normal 8-15 [facility] Comment on above: Order Comment: Speci men Type: BLOOD SPECIMENOrdering Facility: [facility] Address: [address] [place] [address] Performed By: #### 2 432-8, ####[facility] LABCLIA [id number] [address] [place] [address] [place] AST [Catalytic activity/Vol] 23 U/L Normal 14-40 [facility] Comment on above: Order Comment: Speci men Type: BLOOD SPECIMENOrdering Facility: [facility] Address: [address] [place] [address] Performed By: #### 2 4328, ####[facility] LABCLIA [id number] [address] [address] [place] Bilirubin [Mass/Vol] 0.2 mg/dL Normal 0.2-1.3 [facility] Comment on above: Order Comment: Speci men Type: BLOOD SPECIMENOrdering Facility: [facility] Address: [address] [place] [address] Performed By: #### 2 4322-09, ####[facility] LABCLIA [id number] [address] [address] [place] Calcium [Mass/Vol] 7.8 mg/dL Low 8.5-10.2 [facility] Comment on above: Order Comment: Speci men Type: BLOOD SPECIMENOrdering Facility: [facility] Address: [address] [place], [place] [address] Performed By: #### 2 8, ####[facility] LABCLIA [id number] [address] [address] [place] Chloride [Moles/Vol] 103 mmol/L Normal 98-107 [facility] Comment on above: Order Comment: Speci men Type: BLOOD SPECIMENOrdering Facility: [facility] Address: [address] [place], [place] [address] Performed By: #### 2 4323-8, ####[facility] LABCLIA [id number] [address] [address] [place] CO2 [Moles/Vol] 21 mmol/L Low 22-30 [facility] Comment on above: Order Comment: Speci men Type: BLOOD SPECIMENOrdering Facility: [facility] Address: [address] [place] [address] Performed By: #### 2 4323-8, ####[facility] LABCLIA [id number] [place] [id number] [place] Creatinine [Mass/Vol] 1.64 mg/dL High 0.73-1.22 [facility] Comment on above: Order Comment: Speci men Type: BLOOD SPECIMENOrdering Facility: [facility] Address: [address] [place] [address] Performed By: #### 2 4323-8, ####[facility] LABCLIA [id number] [place] [id number] [place] eGFRcr SerPlBld CKD-EPI 2020 47 mL/min/1.73m??? Low >=60 [facility] Comment on above: Order Comment: Speci men Type: BLOOD SPECIMENOrdering Facility: [facility] Address: [address] [place] [address] Result Comment: Gurwinder mated Glomerular Filtration Rate [...] actual GFR. Performed By: #### 2 4323-8, ####[facility] LABCLIA [id number] [address] [address] [place] Glucose [Mass/Vol] 296 mg/dL High 74-99 [facility] Comment on above: Order Comment: Speci men Type: BLOOD SPECIMENOrdering Facility: [facility] Address: [address] [place] [id number] Result Comment: The [place] [employer] (ADA) provides guidance for cutoff [...] Standards of Medical Care in Diabetes 2016, [place] [employer]. Diabetes Care. 2016.39(Suppl 1). Performed By: #### 2 4323-8, ####[facility] LABCLIA [id number] [place] [address] [place] Potassium [Moles/Vol] 4.6 mmol/L Normal 3.7-5.1 [facility] Comment on above: Order Comment: Speci men Type: BLOOD SPECIMENOrdering Facility: [facility] Address: [address] [place] [address] Performed By: #### 2 4322-, ####[facility] LABIA [id number] [place] [address] [place] Protein [Mass/Vol] 5.2 g/dL Low 6.3-8.0 [facility] Comment on above: Order Comment: Speci men Type: BLOOD SPECIMENOrdering Facility: [facility] Address: [address] [place] [id number] Performed By: #### 2 4322-09, ####[facility] LABIA [id number] [place] [id number] [place] Sodium [Moles/Vol] 135 mmol/L Low 136-144 [facility] Comment on above: Order Comment: Speci men Type: BLOOD SPECIMENOrdering Facility: [facility] Address: [address] [place], [place] [address] Performed By: #### 2 4323-8, ####[facility] LABIA [id number] [place] [id number] [place] Urea nitrogen [Mass/Vol] 23 mg/dL Normal 9-24 [facility] Comment on above: Order Comment: Speci men Type: BLOOD SPECIMENOrdering Facility: [facility] Address: [address] [place] [address] Performed By: #### 2 4323-8, ####[facility] LABIA [id number] [place] [address] [place] Albumin [Mass/Vol] 2.8 g/dL Low 3.9-4.9 [facility] Comment on above: Order Comment: Speci men Type: BLOOD SPECIMENOrdering Facility: [facility] Address: [address] [place] [address] Performed By: #### 2 4323-8, 93696-1, ####[facility] LABIA [id number] [place] [id number] [place] ALP [Catalytic activity/Vol] 132 U/L High 38-113 [facility] Comment on above: Order Comment: Speci men Type: BLOOD SPECIMENOrdering Facility: [facility] Address: [address] [place], [place] [address] Performed By: #### 2 4323-8, 99077-1, ####[facility] LABIA [id number] [address] [address] [place] ALT [Catalytic activity/Vol] 12 U/L Normal 10-54 [facility] Comment on above: Order Comment: Speci men Type: BLOOD SPECIMENOrdering Facility: [facility] Address: [address] [place], [place] [address] Performed By: #### 2 4323-8, 22324-0, ####[facility] LABCLIA [id number] [address] [address] [place] Anion gap [Moles/Vol] 12 mmol/L Normal 8-15 [facility] Comment on above: Order Comment: Speci men Type: BLOOD SPECIMENOrdering Facility: [facility] Address: [address] [place] [address] Performed By: #### 2 4323-8, 96126-5, ####[facility] LABCLIA [id number] [address] [address] [place] AST [Catalytic activity/Vol] 22 U/L Normal 14-40 [facility] Comment on above: Order Comment: Speci men Type: BLOOD SPECIMENOrdering Facility: [facility] Address: [address] [place] [address] Performed By: #### 2 4323-8, 37342-6, ####[facility] LABCLIA [id number] [address] [address] [place] Bilirubin [Mass/Vol] 0.2 mg/dL Normal 0.2-1.3 [facility] Comment on above: Order Comment: Speci men Type: BLOOD SPECIMENOrdering Facility: [facility] Address: [address] [place], [place] [address] Performed By: #### 2 4323-8, 27018-5, ####[facility] LABCLIA [id number] [address] [address] [place] Calcium [Mass/Vol] 8.1 mg/dL Low 8.5-10.2 [facility] Comment on above: Order Comment: Speci men Type: BLOOD SPECIMENOrdering Facility: [facility] Address: [address] [place], [place] [address] Performed By: #### 2 4323-8, 38842-5, ####[facility] LABCLIA [id number] [place] [id number] [place] Chloride [Moles/Vol] 104 mmol/L Normal 98-107 [facility] Comment on above: Order Comment: Speci men Type: BLOOD SPECIMENOrdering Facility: [facility] Address: [address] [place] [address] Performed By: #### 2 4323-8, 81802-1, 08730-9 ####[facility] LABIA [id number] [place] [id number] [place] CO2 [Moles/Vol] 23 mmol/L Normal 22-30 [facility] Comment on above: Order Comment: Speci men Type: BLOOD SPECIMENOrdering Facility: [facility] Address: [address] [place] [address] Performed By: #### 2 4323-8, 35377-7, 58185-9 ####[facility] LABIA [id number] [place] [id number] [place] Creatinine [Mass/Vol] 1.54 mg/dL High 0.73-1.22 [facility] Comment on above: Order Comment: Speci men Type: BLOOD SPECIMENOrdering Facility: [facility] Address: [address] [place] [address] Performed By: #### 2 4323-8, 97507-3, ####[facility] LABIA [id number] [place] [id number] [place] eGFRcr SerPlBld CKD-EPI 2020 51 mL/min/1.73m??? Low >=60 [facility] Comment on above: Order Comment: Speci men Type: BLOOD SPECIMENOrdering Facility: [facility] Address: [address] [place] [address] Result Comment: Gurwinder mated Glomerular Filtration Rate [...] actual GFR. Performed By: #### 2 4323-8, 79729-1, ####[facility] LABCLIA [id number] [facility] [employer] [address] [address] [place] Glucose [Mass/Vol] 164 mg/dL High 74-99 [facility] Comment on above: Order Comment: Gini nowak Type: BLOOD SPECIMENOrdering Facility: [facility] Address: [address] [place] [id number] Result Comment: The [place] [employer] (ADA) provides guidance for cutoff [...] Standards of Medical Care in Diabetes 2016, [place] [employer]. Diabetes Care. 2016.39(Suppl 1). Performed By: #### 2 4323-8, 42166-1, ####[facility] LABCLIA [id number] [facility] [id number] [place] [address] [place] Potassium [Moles/Vol] 4.4 mmol/L Normal 3.7-5.1 [facility] Comment on above: Order Comment: Gini nowak Type: BLOOD SPECIMENOrdering Facility: [facility] Address: [address] [place] [address] Performed By: #### 2 4323-8, 25657-3, ####[facility] LABCLIA [id number] [facility] [place] [address] [place] Protein [Mass/Vol] 5.3 g/dL Low 6.3-8.0 [facility] Comment on above: Order Comment: Speci men Type: BLOOD SPECIMENOrdering Facility: [facility] Address: [address] [place] [address] Performed By: #### 2 4323-8, 35304-8, ####[facility] LABCLIA [id number] [place] [id number] [place] Sodium [Moles/Vol] 139 mmol/L Normal 136-144 [facility] Comment on above: Order Comment: Speci men Type: BLOOD SPECIMENOrdering Facility: [facility] Address: [address] [place] [address] Performed By: #### 2 4323-8, 22332-1, ####[facility] LABCLIA [id number] [place] [address] [place] Urea nitrogen [Mass/Vol] 24 mg/dL Normal 9-24 [facility] Comment on above: Order Comment: Speci men Type: BLOOD SPECIMENOrdering Facility: [facility] Address: [address] [place] [address] Performed By: #### 2 4323-8, 40953-7, ####[facility] LABCLIA [id number] [place] [id number] [place] ECG COMPLETEon 10-18-2024 ECG COMPLETE Normal [facility] OFD84ug 10-18-2024 ECG01 Normal [facility] ECHO LIMITEDon 10-18-2024 ECHO LIMITED Normal [facility] Gas and Carbon monoxide pane l (BldV)on 10-18-2024 BASE DEFICIT, VENOUS >-1 Normal -2-0 [facility] Comment on above: Order Comment: Speci men Type: VENOUS BLOOD SPECIMENOrdering Facility: [facility] Address: [address] [place] [address] Performed By: #### 2 4344-4 ####[facility] LABCLIA [id number] [place] [address] [place] Body temperature 98.6 [degF] Normal [facility] Comment on above: Order Comment: Speci men Type: VENOUS BLOOD SPECIMENOrdering Facility: [facility] Address: [address] [place] [address] Performed By: #### 2 4344-4 ####[facility] LABCLIA [id number] [place] [address] [place] Calcium.ionized (Bld) [Mass/Vol] 1.15 mmol/L Normal 1.08-1.30 [facility] Comment on above: Order Comment: Speci men Type: VENOUS BLOOD SPECIMENOrdering Facility: [facility] Address: [address] [place] [address] Performed By: #### 2 4344-4 ####[facility] LABIA [id number] [place] [address] [place] Calcium.ionized adjusted to pH 7.4 (BldA) [Moles/Vol] 1.10 mmol/L Normal 1.08-1.30 [facility] Comment on above: Order Comment: Speci men Type: VENOUS BLOOD SPECIMENOrdering Facility: [facility] Address: [address] [place] [address] Performed By: #### 2 4344-4 ####[facility] [id number] [place] [address] [place] Carboxyhemoglobin (BldV) [Mass fraction] 0.9 % Normal 0.0-2.0 [facility] Comment on above: Order Comment: Speci men Type: VENOUS BLOOD SPECIMENOrdering Facility: [facility] Address: [address] [place] [address] Result Comment: Carb oxyhemoglobin Reference Range for Smokers: 2.0-8.0% Performed By: #### 2 4344-4 ####[facility] LABIA [id number] [address] [id number] [address] [place] CO2 (BldV) [Partial pressure] 53 mm[Hg] Normal 42-55 [facility] Comment on above: Order Comment: Speci men Type: VENOUS BLOOD SPECIMENOrdering Facility: [facility] Address: [address] [place] [address] Performed By: #### 2 4344-4 ####[facility] LABCLIA [id number] [place] [id number] [place] Glucose [Mass/Vol] 254 mg/dL High 60-105 [facility] Comment on above: Order Comment: Speci men Type: VENOUS BLOOD SPECIMENOrdering Facility: [facility] Address: [address] [place] [address] Performed By: #### 2 4344-4 ####[facility] LABCLIA [id number] [place] [id number] [place] HCO3 (Bld) [Moles/Vol] 26 mmol/L Normal 24-28 [facility] Comment on above: Order Comment: Speci men Type: VENOUS BLOOD SPECIMENOrdering Facility: [facility] Address: [address] [place] [address] Performed By: #### 2 4344-4 ####[facility] LABCLIA [id number] [place] [id number] [place] Hematocrit (Bld) [Volume fraction] 27.3 % Low 39.0-51.0 [facility] Comment on above: Order Comment: Speci men Type: VENOUS BLOOD SPECIMENOrdering Facility: [facility] Address: [address] [place], [place] [address] Performed By: #### 2 4344-4 ####[facility] LABCLIA [id number] [place] [id number] [place] Hemoglobin (Bld) [Mass/Vol] 8.8 g/dL Low 13.0-17.0 [facility] Comment on above: Order Comment: Speci men Type: VENOUS BLOOD SPECIMENOrdering Facility: [facility] Address: [address] [place] [id number] Performed By: #### 2 4344-4 ####[facility] LABCLIA [id number] [address] [address] [place] Lactate [Moles/Vol] 1.2 mmol/L Normal 0.5-2.2 [facility] Comment on above: Order Comment: Speci men Type: VENOUS BLOOD SPECIMENOrdering Facility: [facility] Address: [address] [place], [place] [address] Performed By: #### 2 4344-4 ####[facility] LABCLIA [id number] [place] [address] [place] LITERS 3 Liters/min Normal [facility] Comment on above: Order Comment: Speci men Type: VENOUS BLOOD SPECIMENOrdering Facility: [facility] Address: [address] [place], [place] [address] Performed By: #### 2 4344-4 ####[facility] LABCLIA [id number] [place] [address] [place] Methemoglobin (Bld) [Mass fraction] 1.3 % Normal 0.0-1.5 [facility] Comment on above: Order Comment: Speci men Type: VENOUS BLOOD SPECIMENOrdering Facility: [facility] Address: [address] [place], [place] [address] Performed By: #### 2 4344-4 ####[facility] LABCLIA [id number] [address] [address] [place] O2 THERAPY NC = Nasal Cannula Normal [facility] Comment on above: Order Comment: Speci men Type: VENOUS BLOOD SPECIMENOrdering Facility: [facility] Address: [address] [place], [place] [address] Performed By: #### 2 4344-4 ####[facility] LABCLIA [id number] [place] [id number] [place] Oxygen (BldV) [Partial pressure] 30 mm[Hg] Low 35-45 [facility] Comment on above: Order Comment: Speci men Type: VENOUS BLOOD SPECIMENOrdering Facility: [facility] Address: [address] [place] [address] Performed By: #### 2 4344-4 ####[facility] LABCLIA [id number] [place] [id number] [place] Oxygen saturation in Venous blood 45 % Low 60-85 [facility] Comment on above: Order Comment: Speci men Type: VENOUS BLOOD SPECIMENOrdering Facility: [facility] Address: [address] [place] [address] Performed By: #### 2 4344-4 ####[facility] LABCLIA [id number] [place] [id number] [place] Oxyhemoglobin (BldV) [Mass fraction] 44 % Low 60-85 [facility] Comment on above: Order Comment: Speci men Type: VENOUS BLOOD SPECIMENOrdering Facility: [facility] Address: [address] [place], [place] [address] Performed By: #### 2 4344-4 ####[facility] LABCLIA [id number] [place] [address] [place] pH (BldV) 7.31 [pH] Low 7.32-7.42 [facility] Comment on above: Order Comment: Speci men Type: VENOUS BLOOD SPECIMENOrdering Facility: [facility] Address: [address] [place], [place] [address] Performed By: #### 2 4344-4 ####[facility] LABCLIA [id number] [place] [id number] [place] Potassium [Moles/Vol] 4.3 mmol/L Normal 3.5-5.0 [facility] Comment on above: Order Comment: Speci men Type: VENOUS BLOOD SPECIMENOrdering Facility: [facility] Address: [address] [place] [address] [place] [address] Performed By: #### 2 4344-4 ####[facility] LABCLIA [id number] [address] [address] [place] Sodium [Moles/Vol] 133 mmol/L Low 136-144 [facility] Comment on above: Order Comment: Speci men Type: VENOUS BLOOD SPECIMENOrdering Facility: [facility] Address: [address] [place] [address] Performed By: #### 2 4344-4 ####[facility] LABIA [id number] [address] [address] [place] HISTORY PHYSICALon HISTORY PHYSICAL Normal [facility] HbA1c (Bld)on 10-18-2024 Average glucose Estimated from glycated hemoglobin (Bld) [Mass/Vol] 186 mg/dL Normal [facility] Comment on above: Order Comment: Speci men Type: BLOOD SPECIMENOrdering Facility: [facility] Address: [address] [place] [address] Result Comment: eAG: (Estimated average glucose) is a calculated value from HgbA1c and is outside sales representative of the average blood glucose level in the last 2-3 month period. Performed By: #### 5 5454-3 ####[facility] LABIA [id number] [address] [address] [place] HbA1c (Bld) [Mass fraction] 8.1 % High 4.3-5.6 [facility] Comment on above: Order Comment: Speci men Type: BLOOD SPECIMENOrdering Facility: [facility] Address: [address] [place] [address] Result Comment: [place] Diabetes Association guidelines indicate that patients with HgbA1c in the range 5.7-6.4% are at increased risk for development of diabetes, and intervention by lifestyle modification may be beneficial. HgbA1c greater or equal to 6.5% is considered diagnostic of diabetes. Performed By: #### 5 5454-3 ####[facility] LABCLIA [id number] [address] [address] [place] LDH SerPl-cCncon 10-18-2024 LDH [Catalytic activity/Vol] 354 U/L High 135-225 [facility] Comment on above: Order Comment: Speci men Type: BLOOD SPECIMENOrdering Facility: [facility] Address: [address] [place], [place] [address] Performed By: #### 2 532-0, 2777-1, 3015-3, ####[facility] LABCLIA [id number] [address] [address] [place] Magnesium SerPl-mCncon 10-18 Magnesium [Mass/Vol] 1.7 mg/dL Normal 1.7-2.3 [facility] Comment on above: Order Comment: Speci men Type: BLOOD SPECIMENOrdering Facility: [facility] Address: [address] [place] [address] Performed By: #### 2 532-0, 2777-1, 3015-3, ####[facility] LABIA [id number] [address] [address] [place] Magnesium [Mass/Vol] 1.7 mg/dL Normal 1.7-2.3 [facility] Comment on above: Order Comment: Speci men Type: BLOOD SPECIMENOrdering Facility: [facility] Address: [address] [place], [place] [address] Performed By: #### 2 4323-8, ####[facility] LABCLIA [id number] [address] [address] [place] Magnesium [Mass/Vol] 1.7 mg/dL Normal 1.7-2.3 [facility] Comment on above: Order Comment: Speci men Type: BLOOD SPECIMENOrdering Facility: [facility] Address: [address] [place], [place] [address] Performed By: #### 2 4323-8, 48642-2, ####[facility] LABCLIA [id number] [address] NT-proBNP [facility] 10-18 Natriuretic peptide.B prohormone N-Terminal [Mass/Vol] >10234 High <125 [facility] Comment on above: Order Comment: Speci men Type: BLOOD SPECIMENOrdering Facility: [facility] Address: [address] [place] [address] Performed By: #### 2 4323-8, 53847-7, ####[facility] [id number] [address] [place] PT panel Coag (PPP)on 2024 INR Coag (PPP) [Relative time] 1.3 {INR} Normal 0.9-1.3 [facility] Comment on above: Order Comment: Speci men Type: BLOOD SPECIMENOrdering Facility: [facility] Address: [address] [place] [address] Result Comment: Nettie min K Antagonist (VKA) Therapeutic Range: INR 2 to 3 (Target INR of 2.5)Note: For patients treated with VKA drugs, such as warfarin, the [employer] 2012 Guideline recommends [...] al. Chest 2012, 141:7S-47SWilder JALLOH et al. [facility] 2017, 70: 252-289 Performed By: #### 3 4528-0, 78459-1 ####[facility] LABCLIA [id number] [place] [address] [place] PT Coag (PPP) [Time] 14.3 s High 9.7-13.0 [facility] Comment on above: Order Comment: Speci men Type: BLOOD SPECIMENOrdering Facility: [facility] Address: [address] [place] [address] Performed By: #### 3 4528-0, 98261-2 ####[facility] [id number] [address] [place] INR Coag (PPP) [Relative time] 1.4 {INR} High 0.9-1.3 [facility] Comment on above: Order Comment: Speci men Type: BLOOD SPECIMENOrdering Facility: [facility] Address: [address] [place] [address] Result Comment: Nettie min K Antagonist (VKA) Therapeutic Range: INR 2 to 3 (Target INR of 2.5)Note: For patients treated with VKA drugs, such as warfarin, the [employer] 2012 Guideline recommends [...] 70: 252-289 Performed By: #### 3 4528-0 ####[facility] [id number] [place] [id number] [place] PT Coag (PPP) [Time] 14.7 s High 9.7-13.0 [facility] Comment on above: Order Comment: Speci men Type: BLOOD SPECIMENOrdering Facility: [facility] Address: [address] [place] [address] Performed By: #### 3 4528-0 ####[facility] LABIA [id number] [place] [address] [place] INR Coag (PPP) [Relative time] 1.3 {INR} Normal 0.9-1.3 [facility] Comment on above: Order Comment: Speci men Type: BLOOD SPECIMENOrdering Facility: [facility] Address: [address] [place] [address] Result Comment: Nettie min K Antagonist (VKA) Therapeutic Range: INR 2 to 3 (Target INR of 2.5)Note: For patients treated with VKA drugs, such as warfarin, the [employer] 2012 Guideline recommends [...] al. Chest 2012, 141:7S-47SNishfelicia RA, et al. [facility] 2017, 70: 252-289 Performed By: #### 3 4528-0 ####[facility] LABCLIA [id number] [place] [id number] [place] PT Coag (PPP) [Time] 14.0 s High 9.7-13.0 [facility] Comment on above: Order Comment: Speci men Type: BLOOD SPECIMENOrdering Facility: [facility] Address: [address] [place] [address] Performed By: #### 3 4528-0 ####[facility] LABCLIA [id number] [address] [address] [place] Phosphate SerPl-mCncon 10-18 Phosphate [Mass/Vol] 3.5 mg/dL Normal 2.7-4.8 [facility] Comment on above: Order Comment: Speci men Type: BLOOD SPECIMENOrdering Facility: [facility] Address: [address] [place] [address] Performed By: #### 2 532-0, 2777-1, 3016-3, 83048-5 ####[facility] LABCLIA [id number] [place] [id number] [place] THERAPY NTon 10-18-2024 THERAPY NT Normal [facility] TSH SerPl-aCncon 10-18-2024 TSH Qn 4.370 m[IU]/L High 0.270-4.200 [facility] Comment on above: Order Comment: Speci men Type: BLOOD SPECIMENOrdering Facility: [facility] Address: [address] [place] [address] Performed By: #### 2 532-0, 2777-1, 6-3, ####[facility] LABCLIA [id number] [place] [address] [place] TYPE + SCREENon 10-18-2024 ABO O Normal [facility] Comment on above: Order Comment: Speci men Type: BLOOD SPECIMENOrdering Facility: [facility] Address: [address] [place] [address] Performed By: #### T SCR ####[facility] BANKCLIA [id number] [place] [address] [place] Rh Nom (Bld) Negative Normal [facility] Comment on above: Order Comment: Speci men Type: BLOOD SPECIMENOrdering Facility: [facility] Address: [address] [place] [address] Performed By: #### T SCR ####[facility] BANKCLIA [id number] [place] [id number] [place] TYPE AND SCREEN EXPIRATION 10/21/2024 23:59 Normal [facility] Comment on above: Order Comment: Speci men Type: BLOOD SPECIMENOrdering Facility: [facility] Address: [address] [place] [address] Performed By: #### T SCR ####[facility] BLOOD BANKCLIA [id number] [place] [address] [place] XR CHEST 1V FRONTAL PORTon 0 10-18-2024 XR CHEST 1V FRONTAL PORT Normal [facility] XR CHEST 1V FRONTAL PORT Normal [facility] aPTT PPPon 10-18-2024 aPTT Coag (PPP) [Time] 35.3 s High 23.0-32.4 Cl [facility] Comment on above: Order Comment: Speci men Type: BLOOD SPECIMENOrdering Facility: [facility] Address: [address] [place] [address] Performed By: #### 3 4528-0, 94421-3 ####[facility] LABCLIA [id number] [place] [address] [place] HISTORY PHYSICALon HISTORY PHYSICAL Normal [facility] Absolute lymphocyte countOrd ered By: Perez Ribeiro on 10-12-2024 Lymphocytes Auto (Unsp spec) [#/Vol] 0.94 10*3/uL 0.83-4.51 [facility] Activated partial thrombopla stin time (aPTT) in platelet poor plasma by coagulation aOrdered By: Perez Ribeiro on 10-12-2024 aPTT Coag (PPP) [Time] 29.0 s 24.1-36.2 [facility] Anion gap in Serum or Plasma Ordered By: Perez Ribeiro on 10-12-2024 Anion gap [Moles/Vol] 11 mmol/L 5-15 [facility] Automated lymphocyte count a s percentage of total leukocytesOrdered By: Perez Ribeiro on 10-12-2024 Lymphocytes/100 WBC Auto (Unsp spec) 20.8 % 19-41 [facility] BUN/creatinine ratioOrdered By: Perez Ribeiro on 10-12-2024 Urea nitrogen/Creatinine [Mass ratio] 10.7 mg/mg 10-20 [facility] Basophil percentageOrdered B y: Perez Ribeiro on 10-12-2024 Basophils/100 WBC (Bld) 2.0 % High 0-1 [facility] Carbon dioxide, total [Moles /volume] in Central venous bloodOrdered By: Perez Ribeiro on 10-12-2024 CO2 [Moles/Vol] 22.2 mmol/L 21.0-32.0 [facility] Chloride assayOrdered By: Prosper Ribeiro on 10-12-2024 Chloride [Moles/Vol] 106 mmol/L 98-108 [facility] Eosinophil percentageOrdered By: Perez Ribeiro on 10-12-2024 Eosinophils/100 WBC (Bld) 1.5 % 0-5 [facility] Erythrocyte distribution wid th ratioOrdered By: Perez Ribeiro on 10-12-2024 Erythrocyte distribution width (RBC) [Ratio] 16.7 % High 11.6-14.6 [facility] Erythrocyte distribution wid th standard deviationOrdered By: Perez Ribeiro on 10-12-2024 Erythrocyte distribution width (RBC) [Ratio] 62.1 fl High 35.1-43.9 [facility] Glomerular filtration rate ( GFR) estimation/1.73 sq m using serum, plasma, or whole bOrdered By: Perez Ribeiro on 10-12-2024 GFR/1.73 sq M.predicted among non-blacks MDRD (S/P/Bld) [Vol rate/Area] 79 mL/min/{1.73_m2} >60 [facility] Hematocrit Auto (Bld) [Volum e fraction]Ordered By: Perez Ribeiro on 10-12-2024 Hematocrit (Bld) [Volume fraction] 34.4 % Low 40-54 [facility] Hemoglobin measurementOrdere d By: Perez Ribeiro on 10-12-2024 Hemoglobin (Bld) [Mass/Vol] 11.0 g/dL Low 13.0-16.5 [facility] Immature granulocytes/100 WB C Auto (Bld)Ordered By: Perez Ribeiro on 09-04-2025 Immature granulocytes/100 WBC (Bld) 0.400 % 0.0-0.9 [facility] MCV (mean corpuscular volume ) determinationOrdered By: Perez Ribeiro on 10-12-2024 MCV (RBC) [Entitic vol] 100.3 fL High 80-94 [facility] Mean corpuscular hemoglobin (MCH) determinationOrdered By: Perez Ribeiro on 10-12-2024 MCH (RBC) [Entitic mass] 32.1 pg High 27.0-32.0 [facility] Monocyte percentageOrdered B y: Perez Ribeiro on 10-12-2024 Monocytes/100 WBC (Bld) 9.5 % 0-10 [facility] Natriuretic peptide.B prohor irene N-Terminal [Mass/volume] in Serum or PlasmaOrdered By: Perez Ribeiro on 10-12-2024 Natriuretic peptide.B prohormone N-Terminal [Mass/Vol] 41212 pg/mL High <900 [facility] Neutrophil percentageOrdered By: Perez Ribeiro on 10-12-2024 Neutrophils/100 WBC (Bld) 65.8 % 47-70 [facility] Platelet countOrdered By: Prosper Ribeiro on 10-12-2024 Platelets (Bld) [#/Vol] 152 10*3/uL 150-450 [facility] Potassium measurement (mass/ volume)Ordered By: Perez Ribeiro on 10-12-2024 Potassium (Unsp spec) [Mass/Vol] 3.7 mmol/L 3.3-5.1 [facility] Prothrombin timeOrdered By: Perez Ribeiro on 10-12-2024 PT Coag (PPP) [Time] 17.4 s High 11.7-14.9 [facility] RBC Auto (Bld) [#/Vol]Ordere d By: Perez Ribeiro on 10-12-2024 RBC (Bld) [#/Vol] 3.43 10*6/uL Low 4.6-6.2 [facility] Serum creatinine measurement (mass/volume)Ordered By: Perez Ribeiro on 10-12-2024 Creatinine [Mass/Vol] 1.06 mg/dL 0.70-1.20 [facility] Serum glucose measurement (m ass/volume)Ordered By: Perez Ribeiro on 10-12-2024 Glucose [Mass/Vol] 241 mg/dL High 70-99 [facility] Serum or plasma calcium luciana urement (mass/volume)Ordered By: Perez Ribeiro on 10-12-2024 Calcium [Mass/Vol] 8.9 mg/dL 7.6-11.0 [facility] Serum or plasma urea nitroge n measurement (mass/volume)Ordered By: Perez Ribeiro on 10-12-2024 Urea nitrogen [Mass/Vol] 11 mg/dL 4-19 [facility] Sodium levelOrdered By: Beto Ribeiro on 10-12-2024 Sodium [Moles/Vol] 140 mmol/L 133-145 [facility] Troponin T.cardiac [Mass/vol ume] in Serum or Plasma by High sensitivity methodOrdered By: Perez Ribeiro on 10-12-2024 Troponin T.cardiac High sensitivity method [Mass/Vol] 83 ng/L High <22 [facility] Troponin T.cardiac High sensitivity method [Mass/Vol] 91 ng/L High <22 [facility] Troponin T.cardiac High sensitivity method [Mass/Vol] 105 ng/L High <22 [facility] White blood cell (WBC) count Ordered By: Perez Ribeiro on 10-12-2024 WBC (Bld) [#/Vol] 4.5 10*3/uL 4.4-11.0 [facility] Absolute lymphocyte countOrd ered By: Rafaela Welch on 10-06-2024 Lymphocytes Auto (Unsp spec) [#/Vol] 0.81 10*3/uL Low 0.83-4.51 [facility] Anion gap in Serum or Plasma Ordered By: Rafaela Welch on 10-06-2024 Anion gap [Moles/Vol] 10 mmol/L 5-15 [facility] Automated lymphocyte count a s percentage of total leukocytesOrdered By: Rafaela Welch on 10-06-2024 Lymphocytes/100 WBC Auto (Unsp spec) 16.0 % Low 19-41 [facility] BUN/creatinine ratioOrdered By: Rafaela Welch on 10-06-2024 Urea nitrogen/Creatinine [Mass ratio] 8.8 mg/mg Low 10-20 [facility] Basophil percentageOrdered B y: Rafaela Welch on 10-06-2024 Basophils/100 WBC (Bld) 1.4 % High 0-1 [facility] Bilirubin directOrdered By: Rafaela Welch on 10-06-2024 Bilirubin.direct [Mass/Vol] 0.21 mg/dL 0.00-0.30 [facility] Bilirubin, totalOrdered By: Rafaela Welch on 10-06-2024 Bilirubin [Mass/Vol] 0.42 mg/dL 0.00-1.30 [facility] Carbon dioxide, total [Moles /volume] in Central venous bloodOrdered By: Rafaela Welch on 10-06-2024 CO2 [Moles/Vol] 21.6 mmol/L 21.0-32.0 [facility] Chloride assayOrdered By: Rosaura Welch on 10-06-2024 Chloride [Moles/Vol] 108 mmol/L 98-108 [facility] Eosinophil percentageOrdered By: Rafaela Welch on 10-06-2024 Eosinophils/100 WBC (Bld) 1.6 % 0-5 [facility] Erythrocyte distribution wid th ratioOrdered By: Rafaela Welch on 10-06-2024 Erythrocyte distribution width (RBC) [Ratio] 16.4 % High 11.6-14.6 [facility] Erythrocyte distribution wid th standard deviationOrdered By: Rafaela Welch on 10-06-2024 Erythrocyte distribution width (RBC) [Ratio] 62.4 fl High 35.1-43.9 [facility] Glomerular filtration rate ( GFR) estimation/1.73 sq m using serum, plasma, or whole bOrdered By: Rafaela Welch on 10-06-2024 GFR/1.73 sq M.predicted among non-blacks MDRD (S/P/Bld) [Vol rate/Area] 80 mL/min/{1.73_m2} >60 [facility] Hematocrit Auto (Bld) [Volum e fraction]Ordered By: Rafaela Welch on 10-06-2024 Hematocrit (Bld) [Volume fraction] 34.4 % Low 40-54 [facility] Hemoglobin measurementOrdere d By: Rafaela Welch on 10-06-2024 Hemoglobin (Bld) [Mass/Vol] 10.9 g/dL Low 13.0-16.5 [facility] Immature granulocytes/100 WB C Auto (Bld)Ordered By: Rafaela Welch on 10-06-2024 Immature granulocytes/100 WBC (Bld) 0.400 % 0.0-0.9 [facility] MCV (mean corpuscular volume ) determinationOrdered By: Rafaela Welch on 10-06-2024 MCV (RBC) [Entitic vol] 103.3 fL High 80-94 [facility] Mean corpuscular hemoglobin (MCH) determinationOrdered By: Rafaela Welch on 10-06-2024 MCH (RBC) [Entitic mass] 32.7 pg High 27.0-32.0 [facility] Monocyte percentageOrdered B y: Rafaela Welch on 10-06-2024 Monocytes/100 WBC (Bld) 6.1 % 0-10 [facility] Neutrophil percentageOrdered By: Rafaela Welch on 10-06-2024 Neutrophils/100 WBC (Bld) 74.5 % High 47-70 [facility] No Panel InformationOrdered By: Rafaela Welch on 10-06-2024 20 U/L <38 [facility] Platelet countOrdered By: Rosaura Welch on 10-06-2024 Platelets (Bld) [#/Vol] 140 10*3/uL Low 150-450 [facility] Potassium measurement (mass/ volume)Ordered By: Rafaela Welch on 10-06-2024 Potassium (Unsp spec) [Mass/Vol] 3.8 mmol/L 3.3-5.1 [facility] Prothrombin timeOrdered By: Rafaela Welch on 10-06-2024 PT Coag (PPP) [Time] 16.5 s High 11.7-14.9 [facility] RBC Auto (Bld) [#/Vol]Ordere d By: Rafaela Welch on 10-06-2024 RBC (Bld) [#/Vol] 3.33 10*6/uL Low 4.6-6.2 [facility] Serum creatinine measurement (mass/volume)Ordered By: Rafaela Welch on 10-06-2024 Creatinine [Mass/Vol] 1.05 mg/dL 0.70-1.20 [facility] Serum globulin measurementOr dered By: Rafaela Welch on 10-06-2024 Globulin (S) [Mass/Vol] 2.9 g/dL 2.2-4.2 [facility] Serum glucose measurement (m ass/volume)Ordered By: Rafaela Welch on 10-06-2024 Glucose [Mass/Vol] 279 mg/dL High 70-99 [facility] Serum or plasma alanine padilla otransferase (ALT) measurementOrdered By: Rafaela Welch on 10-06-2024 ALT [Catalytic activity/Vol] 12 U/L <47 [facility] Serum or plasma albumin luciana urement (mass/volume)Ordered By: Rafaela Welch on 10-06-2024 Albumin [Mass/Vol] 3.2 g/dL Low 3.4-4.8 [facility] Serum or plasma alkaline nolan sphatase measurementOrdered By: Rafaela Welch on 10-06-2024 ALP [Catalytic activity/Vol] 111 U/L 40-129 [facility] Serum or plasma calcium luciana urement (mass/volume)Ordered By: Rafaela Welch on 10-06-2024 Calcium [Mass/Vol] 8.7 mg/dL 7.6-11.0 [facility] Serum or plasma urea nitroge n measurement (mass/volume)Ordered By: Rafaela Welch on 10-06-2024 Urea nitrogen [Mass/Vol] 9 mg/dL 4-19 [facility] [facility] Sodium levelOrdered By: Rafaela Welch on 10-06-2024 Sodium [Moles/Vol] 140 mmol/L 133-145 [facility] Total proteinOrdered By: Indira Welch on 10-06-2024 Protein [Mass/Vol] 6.1 g/dL 5.9-8.4 [facility] White blood cell (WBC) count Ordered By: Rafaela Welch on 10-06-2024 WBC (Bld) [#/Vol] 5.1 10*3/uL 4.4-11.0 [facility] Absolute lymphocyte countOrd ered By: Lucas Frausto on 09-04-2024 Lymphocytes Auto (Unsp spec) [#/Vol] 1.20 10*3/uL 0.83-4.51 [facility] Anion gap in Serum or Plasma Ordered By: Lucas Frausto on 09-04-2024 Anion gap [Moles/Vol] 10 mmol/L 5-15 [facility] Automated lymphocyte count a s percentage of total leukocytesOrdered By: Lucas Frausto on 09-04-2024 Lymphocytes/100 WBC Auto (Unsp spec) 21.2 % 19-41 [facility] BUN/creatinine ratioOrdered By: Lucas Frausto on 09-04-2024 Urea nitrogen/Creatinine [Mass ratio] 15.4 mg/mg 10-20 [facility] Basophil percentageOrdered B y: Lucas Frausto on 09-04-2024 Basophils/100 WBC (Bld) 1.4 % High 0-1 [facility] Blood manual differential co mment interpretation (narrative result)Ordered By: Lucas Frausto on 09-04-2024 Manual differential comment Jose Carlos (Bld) [Interp] SCANNED [facility] Carbon dioxide, total [Moles /volume] in Central venous bloodOrdered By: Lucas Frausto on 09-04-2024 CO2 [Moles/Vol] 21.3 mmol/L 21.0-32.0 [facility] Chloride assayOrdered By: Celi Frausto on 09-04-2024 Chloride [Moles/Vol] 105 mmol/L 98-108 [facility] Eosinophil percentageOrdered By: Lucas Frausto on 09-04-2024 Eosinophils/100 WBC (Bld) 1.6 % 0-5 [facility] Erythrocyte distribution wid th ratioOrdered By: Lucas Frausto on 09-04-2024 Erythrocyte distribution width (RBC) [Ratio] 14.4 % 11.6-14.6 [facility] Erythrocyte distribution wid th standard deviationOrdered By: Lucas Frausto on 09-04-2024 Erythrocyte distribution width (RBC) [Ratio] 55.8 fl High 35.1-43.9 [facility] Glomerular filtration rate ( GFR) estimation/1.73 sq m using serum, plasma, or whole bOrdered By: Lucas Frausto on 09-04-2024 GFR/1.73 sq M.predicted among non-blacks MDRD (S/P/Bld) [Vol rate/Area] 51 mL/min/{1.73_m2} Low >60 [facility] deOrdered By: Lucas Frausto on 09-04-2024 Glucose [Mass/Vol] 159 mg/dL High 74-106 [facility] Hematocrit Auto (Bld) [Volum e fraction]Ordered By: Lucas Frausto on 09-04-2024 Hematocrit (Bld) [Volume fraction] 27.8 % Low 40-54 [facility] Hemoglobin measurementOrdere d By: Lucas Frausto on 09-04-2024 Hemoglobin (Bld) [Mass/Vol] 8.7 g/dL Low 13.0-16.5 [facility] Immature granulocytes/100 WB C Auto (Bld)Ordered By: Lucas Frausto on 09-04-2024 Immature granulocytes/100 WBC (Bld) 0.500 % 0.0-0.9 [facility] MCV (mean corpuscular volume ) determinationOrdered By: Lucas Frausto on 09-04-2024 MCV (RBC) [Entitic vol] 106.1 fL High 80-94 [facility] Mean corpuscular hemoglobin (MCH) determinationOrdered By: Lucas Frausto on 09-04-2024 MCH (RBC) [Entitic mass] 33.2 pg High 27.0-32.0 [facility] Monocyte percentageOrdered B y: Lucas Frausto on 09-04-2024 Monocytes/100 WBC (Bld) 9.5 % 0-10 [facility] Neutrophil percentageOrdered By: Lucas Frausto on 09-04-2024 Neutrophils/100 WBC (Bld) 65.8 % 47-70 [facility] Platelet countOrdered By: Celi Frausto on 09-04-2024 Platelets (Bld) [#/Vol] 184 10*3/uL 150-450 [facility] Potassium measurement (mass/ volume)Ordered By: Lucas Frausto on 09-04-2024 Potassium (Unsp spec) [Mass/Vol] 5.8 mmol/L High 3.3-5.1 [facility] RBC Auto (Bld) [#/Vol]Ordere d By: Lucas Frausto on 09-04-2024 RBC (Bld) [#/Vol] 2.62 10*6/uL Low 4.6-6.2 [facility] SURG PATH REQUESTon 09-05-19 Case Report Normal [facility] Comment on above: Result Comment: Surg ical Pathology Report Case: [id number] Authorizing Provider: Barry Sheehan DO Collected: 09/04/2024 01:45 PM Ordering Location: [facility] Received: 09/05/2024 05:09 PM [place] Pathologist: Consuelo Noland MD Specimen: SURG PATH Performed By: #### S URGP #### [facility] (DEFAULT) [address] [place] [address] Clinical History Preop Diagnoses: Cirrhosis. 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 Recent pertinent laboratory data: 09/02/2024, ALT 13, AST 23, Alk Phos 141, TBili 0.17, Remaining lab results not available. Normal [facility] Comment on above: Performed By: #### S URGP #### [facility] (DEFAULT) [address] [place] [address] Diagnosis Comments Normal [facility] Comment on above: Result Comment: Ther [...] images. Performed By: #### S URGP #### [facility] (DEFAULT) [address] [place] [address] Gross Description Normal [facility] Comment on above: Result Comment: The specimen is received in one properly labeled container with the patient's name and accession number. A. The specimen is designated liver bx and consists of three hernandes-yellow soft tissue cores measuring in length ranging from 2.1 cm up to 2.2 cm, with an average diameter of 0.1 cm. TE 2 Lab Use Only: JobID [id number] Grosser for this case was: Diana Livingston Performed By: #### S URGP #### [facility] (DEFAULT) [address] [place] [address] Microscopic Description Normal [facility] Comment on above: Result Comment: A mi croscopic examination was performed. Trichrome stain, and CK7 and GS immunostains performed on tissue blocks A1 and A2. All controls show appropriate reactivity. All immunohistochemistry (IHC), in situ hybridization (GINA), and histochemical tests were developed by and are performed at the [facility], Histology and IHC Lab, [address] [place] [address]. All Immunofluorescent (IF) tests were developed by and are performed at the [facility], Renal Division, [address] [place] [address]. All tests reported here, except for PD-L1, have not been cleared by or approved by the US Food and Drug Administration (FDA). The laboratory is regulated under CLIA as qualified to perform high-complexity testing. The tests are used for clinical purposes. They should not be regarded as investigational or for research. Performed By: #### S URGP #### 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 at 2203 EDT Performed By: #### S URGP #### [facility] (DEFAULT) [address] [address] Professional Interpretation Performed at: [facility] Comment on above: Result Comment: Prof essional interpretation performed remotely at a secondary location, address on file. For Immediate Release to Patient's [facility]? Yes Performed By: #### S URGP #### [facility] (DEFAULT) [address] [address] Serum creatinine measurement (mass/volume)Ordered By: Lucas Frausto on 09-04-2024 Creatinine [Mass/Vol] 1.53 mg/dL High 0.70-1.20 [facility] Serum glucose measurement (m ass/volume)Ordered By: Lucas Frausto on 09-04-2024 Glucose [Mass/Vol] 110 mg/dL High 70-99 [facility] Serum or plasma calcium luciana urement (mass/volume)Ordered By: Lucas Frausto on 09-04-2024 Calcium [Mass/Vol] 8.6 mg/dL 7.6-11.0 [facility] Serum or plasma urea nitroge n measurement (mass/volume)Ordered By: Lucas Frausto on 09-04-2024 Urea nitrogen [Mass/Vol] 24 mg/dL High 4-19 [facility] Sodium levelOrdered By: Tone Frausto on 09-04-2024 Sodium [Moles/Vol] 136 mmol/L 133-145 [facility] White blood cell (WBC) count Ordered By: Lucas Frausto on 09-04-2024 WBC (Bld) [#/Vol] 5.7 10*3/uL 4.4-11.0 [facility] Bilirubin, totalOrdered By: Lucas Frausto on 09-02-2024 Bilirubin [Mass/Vol] 0.17 mg/dL 0.00-1.30 [facility] No Panel InformationOrdered By: Lucas Frausto on 09-02-2024 23 U/L <38 [facility] Serum globulin measurementOr dered By: Lucas Frausto on 09-02-2024 Globulin (S) [Mass/Vol] 2.8 g/dL 2.2-4.2 [facility] Serum or plasma alanine padilla otransferase (ALT) measurementOrdered By: Lucas Frausto on 09-02-2024 ALT [Catalytic activity/Vol] 13 U/L <47 [facility] Serum or plasma albumin luciana urement (mass/volume)Ordered By: Lucas Frausto on 09-02-2024 Albumin [Mass/Vol] 2.7 g/dL Low 3.4-4.8 [facility] Serum or plasma albumin/glob ulin mass ratioOrdered By: Lucas Frausto on 09-02-2024 Albumin/Globulin [Mass ratio] 1.0 {ratio} 0.9-2.4 [facility] Serum or plasma alkaline noaln sphatase measurementOrdered By: Lucas Frausto on 09-02-2024 ALP [Catalytic activity/Vol] 141 U/L High 40-129 [facility] Total proteinOrdered By: Silvestre Frausto on 09-02-2024 Protein [Mass/Vol] 5.5 g/dL Low 5.9-8.4 [facility] Activated partial thrombopla stin time (aPTT) in platelet poor plasma by coagulation aOrdered By: Barry Sheehan on 09-01-2024 aPTT Coag (PPP) [Time] 27.5 s 24.1-36.2 [facility] Amylase body fluidOrdered By : Baryr Sheehan on 09-01-2024 Amylase (Body fld) [Catalytic activity/Vol] 16 U/L . [facility] Anaerobic cultureOrdered By: Barry Sheehan on 09-01-2024 Bacteria identified Anaer cx Nom (Unsp spec) No growth in 5 days. [facility] Body fluid albumin measureme nt by colorimetric method (mass/volume)Ordered By: Barry Sheehan on 09-01-2024 Albumin Ql (Body fld) 0.4 g/dL Not Estab. [facility] Body fluid appearance (nomin al result)Ordered By: Barry Sheehan on 09-01-2024 Appearance (Body fld) SL CLDY [facility] Body fluid color determinati onOrdered By: Barry Sheehan on 09-01-2024 Color (Body fld) PINK [facility] Body fluid cultureOrdered By : Barry Sheehan on 09-01-2024 Microbial culture, body fluid Culture exhibits no growth. [facility] Body fluid leukocytes count (number/volume)Ordered By: Barry Sheehan on 09-01-2024 WBC (Body fld) [#/Vol] 0.156 10*3/uL [facility] Body fluid lymphocytes/100 l eukocytesOrdered By: Barry Sheehan on 09-01-2024 Lymphocytes/100 WBC (Body fld) 36 % [facility] Body fluid macrophage countO rdered By: Barry Sheehan on 09-01-2024 Macrophages (Body fld) [#/Vol] 19 % [facility] Body fluid mononuclear cell percentageOrdered By: Barry Sheehan on 09-01-2024 Mononuclear cells/100 WBC (Body fld) 73.1 % [facility] Body fluid protein measureme nt (mass/volume)Ordered By: Barry Sheehan on 09-01-2024 Protein (Body fld) [Mass/Vol] 0.9 g/dL Not Establ. [facility] Body fluid segmented neutrop hils count (number/volume)Ordered By: Barry Sheehan on 09-01-2024 Segmented neutrophils (Body fld) [#/Vol] 38 % [facility] Body fluid total cell countO rdered By: Barry Sheehan on 09-01-2024 Cells Counted Total (Body fld) [#] 0.169 10^3/ul [facility] Cytology report of Body flui d Cyto stainOrdered By: Barry Sheehan on 09-01-2024 Cytology report Cyto stain Doc (Body fld) SEE PATHOLOGY REPORT [facility] Gram stainOrdered By: Barry Sheehan on 09-01-2024 Microscopic observation Gram stain Nom (Unsp spec) [facility] Monocyte detectionOrdered By : Barry Sheehan on 09-01-2024 Monocytes/100 WBC (Bld) 7 % [facility] No Panel InformationOrdered By: Barry Sheehan on 09-01-2024 5085 /mm3 [facility] SEE COMMENT [facility] Pathologist interpretation o f Body fluid testsOrdered By: Barry Sheehan on 09-01-2024 Pathologist interpretation (Body fld) [Interp] Reviewed [facility] Prothrombin timeOrdered By: Barry Sheehan on 09-01-2024 PT Coag (PPP) [Time] 15.6 s High 11.7-14.9 [facility] Specimen source identificati on of body fluidOrdered By: Barry Sheehan on 09-01-2024 Specimen source Nom (Body fld) ASCITES FLUID [facility] Platelet estimateOrdered By: Lucas Frausto on 08-31-2024 Platelets LM Ql (Bld) A ADEQ [facility] Body fluid lactate dehydroge nase measurement (enzymatic activity/volume) by pyruvateOrdered By: Lucas Frausto on 08-30-2024 LDH Pyruvate to lactate reaction (Body fld) [Catalytic activity/Vol] 84 Units/L Not Establ. [facility] Body fluid mesothelial cell percentageOrdered By: Lucas Frausto on 08-30-2024 Mesothelial cells/100 WBC (Body fld) 6 % [facility] Absolute lymphocyte countOrd ered By: Vinh Lomeli on 08-28-2024 Lymphocytes Auto (Unsp spec) [#/Vol] 1.03 10*3/uL 0.83-4.51 [facility] Anion gap in Serum or Plasma Ordered By: Vinh Lomeli on 08-28-2024 Anion gap [Moles/Vol] 13 mmol/L 5-15 [facility] Automated lymphocyte count a s percentage of total leukocytesOrdered By: Vinh Lomeli on 08-28-2024 Lymphocytes/100 WBC Auto (Unsp spec) 21.3 % 19-41 [facility] BUN/creatinine ratioOrdered By: Vinh Lomeli on 08-28-2024 Urea nitrogen/Creatinine [Mass ratio] 7.3 mg/mg Low 10-20 [facility] Basophil percentageOrdered B y: Vinh Lomeli on 08-28-2024 Basophils/100 WBC (Bld) 1.2 % High 0-1 [facility] Bilirubin Test strip Ql (U)O rdered By: Vinh Lomeli on 08-28-2024 Bilirubin Ql (U) Negative Negative [facility] Carbon dioxide, total [Moles /volume] in Central venous bloodOrdered By: Vinh Lomeli on 08-28-2024 CO2 [Moles/Vol] 21.9 mmol/L 21.0-32.0 [facility] Chloride assayOrdered By: Garfield Lomeli on 08-28-2024 Chloride [Moles/Vol] 102 mmol/L 98-108 [facility] Eosinophil percentageOrdered By: Vinh Lomeli on 08-28-2024 Eosinophils/100 WBC (Bld) 1.4 % 0-5 [facility] Erythrocyte distribution wid th ratioOrdered By: Vinh Lomeli on 08-28-2024 Erythrocyte distribution width (RBC) [Ratio] 13.8 % 11.6-14.6 [facility] Erythrocyte distribution wid th standard deviationOrdered By: Vinh Lomeli on 08-28-2024 Erythrocyte distribution width (RBC) [Ratio] 53.1 fl High 35.1-43.9 [facility] Glomerular filtration rate ( GFR) estimation/1.73 sq m using serum, plasma, or whole bOrdered By: Vinh Lomeli on 08-28-2024 GFR/1.73 sq M.predicted among non-blacks MDRD (S/P/Bld) [Vol rate/Area] 76 mL/min/{1.73_m2} >60 [facility] Hematocrit Auto (Bld) [Volum e fraction]Ordered By: Vinh Lomeli on 08-28-2024 Hematocrit (Bld) [Volume fraction] 31.6 % Low 40-54 [facility] Hemoglobin measurementOrdere d By: Vinh Lomeli on 08-28-2024 Hemoglobin (Bld) [Mass/Vol] 10.1 g/dL Low 13.0-16.5 [facility] Immature granulocytes/100 WB C Auto (Bld)Ordered By: Vinh Lomeli on 08-28-2024 Immature granulocytes/100 WBC (Bld) 0.200 % 0.0-0.9 [facility] Ketones Test strip Ql (U)Ord ered By: Vinh Lomeli on 08-28-2024 Ketones Ql (U) Negative Negative [facility] MCV (mean corpuscular volume ) determinationOrdered By: Vinh Lomeli on 08-28-2024 MCV (RBC) [Entitic vol] 105.3 fL High 80-94 [facility] Mean corpuscular hemoglobin (MCH) determinationOrdered By: Vinh Lomeli on 08-28-2024 MCH (RBC) [Entitic mass] 33.7 pg High 27.0-32.0 [facility] Monocyte percentageOrdered B y: Vinh Lomeli on 08-28-2024 Monocytes/100 WBC (Bld) 7.6 % 0-10 [facility] Mucus LM Ql (Urine sed)Order ed By: Vinh Lomeli on 08-28-2024 Mucus Ql (Urine sed) 0 SEEN /hpf [facility] Neutrophil percentageOrdered By: Vinh Lomeli on 08-28-2024 Neutrophils/100 WBC (Bld) 68.3 % 47-70 [facility] Nitrite Test strip Ql (U)Ord ered By: Vinh Lomeli on 08-28-2024 Nitrite Ql (U) Negative Negative [facility] Platelet countOrdered By: Garfield Lomeli on 08-28-2024 Platelets (Bld) [#/Vol] 181 10*3/uL 150-450 [facility] Potassium measurement (mass/ volume)Ordered By: Vinh Lomeli on 08-28-2024 Potassium (Unsp spec) [Mass/Vol] 3.1 mmol/L Low 3.3-5.1 [facility] Protein Test strip Ql (U)Ord ered By: Vinh Lomeli on 08-28-2024 Protein Ql (U) Negative Negative [facility] RBC Auto (Bld) [#/Vol]Ordere d By: Vinh Lomeli on 08-28-2024 RBC (Bld) [#/Vol] 3.00 10*6/uL Low 4.6-6.2 [facility] Serum creatinine measurement (mass/volume)Ordered By: Vinh Lomeli on 08-28-2024 Creatinine [Mass/Vol] 1.10 mg/dL 0.70-1.20 [facility] Serum glucose measurement (m ass/volume)Ordered By: Vinh Lomeli on 08-28-2024 Glucose [Mass/Vol] 369 mg/dL High 70-99 [facility] Serum or plasma calcium luciana urement (mass/volume)Ordered By: Vinh Lomeli on 08-28-2024 Calcium [Mass/Vol] 8.0 mg/dL 7.6-11.0 [facility] Serum or plasma urea nitroge n measurement (mass/volume)Ordered By: Vinh Lomeli on 08-28-2024 Urea nitrogen [Mass/Vol] 8 mg/dL 4-19 [facility] Sodium levelOrdered By: Vinh Lomeli on 08-28-2024 Sodium [Moles/Vol] 137 mmol/L 133-145 [facility] Squamous epithelial cells de tection in urine sediment by light microscopyOrdered By: Vinh Lomeli on 08-28-2024 Epithelial cells.squamous LM Ql (Urine sed) 0 SEEN /hpf 0-5 [facility] Troponin T.cardiac [Mass/vol ume] in Serum or Plasma by High sensitivity methodOrdered By: Vinh Lomeli on 08-28-2024 Troponin T.cardiac High sensitivity method [Mass/Vol] 57 ng/L High <22 [facility] Troponin T.cardiac High sensitivity method [Mass/Vol] 67 ng/L High <22 [facility] Urine clarityOrdered By: Jasvir Lomeli on 08-28-2024 Clarity (U) Clear Clear [facility] Urine color determinationOrd ered By: Vinh Lomeli on 08-28-2024 Color (U) Straw Yellow [facility] Urine glucose detectionOrder ed By: Vinh Lomeli on 08-28-2024 Glucose Ql (U) 1000 mg/dl High Normal [facility] Urine leukocyte esterase det ection by dipstickOrdered By: Vinh Lomeli on 08-28-2024 Leukocyte esterase Test strip Ql (U) Negative Negative [facility] Urine pHOrdered By: Vinh chaidez on 08-28-2024 pH (U) 7.0 [pH] 5.0 - 8.0 [facility] Urine sediment bacteria coun t by microscopy (number/high power field)Ordered By: Vinh Lomeli on 08-28-2024 Bacteria LM.HPF (Urine sed) [#/Area] 0 /[HPF] None Seen [facility] Urine specific gravity measu rementOrdered By: Vinh Lomeli on 08-28-2024 Specific gravity (U) [Rel density] 1.010 1.002-1.030 [facility] Urine urobilinogen measureme ntOrdered By: Vinh Lomeli on 08-28-2024 Urobilinogen Ql (U) Normal mg/dl Normal [facility] White blood cell (WBC) count Ordered By: Vinh Lomeli on 08-28-2024 WBC (Bld) [#/Vol] 4.8 10*3/uL 4.4-11.0 [facility] White blood cell countOrdere d By: Vinh Lomeli on 08-28-2024 White blood cell count 0-5 SEEN /hpf 0-5 [facility] Absolute lymphocyte countOrd ered By: Valeriy Connell on 08-03-2024 Lymphocytes Auto (Unsp spec) [#/Vol] 0.89 10*3/uL 0.83-4.51 [facility] Anion gap in Serum or Plasma Ordered By: Valeriy Connell on 08-03-2024 Anion gap [Moles/Vol] 8 mmol/L 5-15 [facility] Automated lymphocyte count a s percentage of total leukocytesOrdered By: Valeriy Connell on 08-03-2024 Lymphocytes/100 WBC Auto (Unsp spec) 21.3 % 19-41 [facility] BUN/creatinine ratioOrdered By: Valeriy Connell on 08-03-2024 Urea nitrogen/Creatinine [Mass ratio] 10.4 mg/mg 10-20 [facility] Basophil percentageOrdered B y: Valeriy Connell on 08-03-2024 Basophils/100 WBC (Bld) 1.2 % High 0-1 [facility] Carbon dioxide, total [Moles /volume] in Central venous bloodOrdered By: Valeriy Connell on 08-03-2024 CO2 [Moles/Vol] 23.3 mmol/L 21.0-32.0 [facility] Chloride assayOrdered By: Alex Connell on 08-03-2024 Chloride [Moles/Vol] 107 mmol/L 98-108 [facility] Eosinophil percentageOrdered By: Valeriy Connell on 08-03-2024 Eosinophils/100 WBC (Bld) 2.2 % 0-5 [facility] Erythrocyte distribution wid th ratioOrdered By: Valeriy Connell on 08-03-2024 Erythrocyte distribution width (RBC) [Ratio] 14.4 % 11.6-14.6 [facility] Erythrocyte distribution wid th standard deviationOrdered By: Valeriy Connell on 08-03-2024 Erythrocyte distribution width (RBC) [Ratio] 58.9 fl High 35.1-43.9 [facility] Glomerular filtration rate ( GFR) estimation/1.73 sq m using serum, plasma, or whole bOrdered By: Valeriy Connell on 08-03-2024 GFR/1.73 sq M.predicted among non-blacks MDRD (S/P/Bld) [Vol rate/Area] 58 mL/min/{1.73_m2} Low >60 [facility] deOrdered By: Valeriy Connell on 08-03-2024 Glucose [Mass/Vol] 304 mg/dL High 74-106 [facility] Hematocrit Auto (Bld) [Volum e fraction]Ordered By: Valeriy Connell on 08-03-2024 Hematocrit (Bld) [Volume fraction] 29.3 % Low 40-54 [facility] Hemoglobin measurementOrdere d By: Valeriy Connell on 08-03-2024 Hemoglobin (Bld) [Mass/Vol] 9.3 g/dL Low 13.0-16.5 [facility] Immature granulocytes/100 WB C Auto (Bld)Ordered By: Valeriy Connell on 08-03-2024 Immature granulocytes/100 WBC (Bld) 0.200 % 0.0-0.9 [facility] MCV (mean corpuscular volume ) determinationOrdered By: Valeriy Connell on 08-03-2024 MCV (RBC) [Entitic vol] 110.6 fL High 80-94 [facility] Mean corpuscular hemoglobin (MCH) determinationOrdered By: Valeriy Connell on 08-03-2024 MCH (RBC) [Entitic mass] 35.1 pg High 27.0-32.0 [facility] Monocyte percentageOrdered B y: Valeriy Connell on 08-03-2024 Monocytes/100 WBC (Bld) 10.6 % High 0-10 [facility] Neutrophil percentageOrdered By: Valeriy Connell on 08-03-2024 Neutrophils/100 WBC (Bld) 64.5 % 47-70 [facility] Platelet countOrdered By: Alex Connell on 08-03-2024 Platelets (Bld) [#/Vol] 147 10*3/uL Low 150-450 [facility] Potassium measurement (mass/ volume)Ordered By: Valeriy oCnnell on 08-03-2024 Potassium (Unsp spec) [Mass/Vol] 4.4 mmol/L 3.3-5.1 [facility] RBC Auto (Bld) [#/Vol]Ordere d By: Valeriy Connell on 08-03-2024 RBC (Bld) [#/Vol] 2.65 10*6/uL Low 4.6-6.2 [facility] Serum creatinine measurement (mass/volume)Ordered By: Valeriy Connell on 08-03-2024 Creatinine [Mass/Vol] 1.38 mg/dL High 0.70-1.20 [facility] Serum glucose measurement (m ass/volume)Ordered By: Valeriy Connell on 08-03-2024 Glucose [Mass/Vol] 151 mg/dL High 70-99 [facility] Serum or plasma calcium luciana urement (mass/volume)Ordered By: Valeriy Connell on 08-03-2024 Calcium [Mass/Vol] 8.0 mg/dL 7.6-11.0 [facility] Serum or plasma urea nitroge n measurement (mass/volume)Ordered By: Valeriy Connell on 08-03-2024 Urea nitrogen [Mass/Vol] 14 mg/dL 4-19 [facility] Sodium levelOrdered By: Valeriy Connell on 08-03-2024 Sodium [Moles/Vol] 139 mmol/L 133-145 [facility] White blood cell (WBC) count Ordered By: Valeriy Connell on 08-03-2024 WBC (Bld) [#/Vol] 4.2 10*3/uL Low 4.4-11.0 [facility] Bilirubin, totalOrdered By: Iman Aguayo on 08-02-2024 Bilirubin [Mass/Vol] 0.31 mg/dL 0.00-1.30 [facility] Health Calculated very low density lipoprotein (VLDL) cholesterol measurementOrdered By: Iman Aguayo on 08-02-2024 Calculated very low density lipoprotein (VLDL) cholesterol measurement 26 mg/dL 5-40 [facility] Electrocardiogram reportOrde red By: Trung Bob on 08-02-2024 EKG study [facility] Work Phone: LDL calc ser/plasOrdered By: Iman Aguayo on 08-02-2024 Cholesterol in LDL [Mass/Vol] 41 mg/dL [facility] No Panel InformationOrdered By: Iman Aguayo on 08-02-2024 35 U/L <38 [facility] Serum globulin measurementOr dered By: Iman Aguayo on 08-02-2024 Globulin (S) [Mass/Vol] 2.6 g/dL 2.2-4.2 [facility] Serum or plasma alanine padilla otransferase (ALT) measurementOrdered By: Iman Aguayo on 08-02-2024 ALT [Catalytic activity/Vol] 13 U/L <47 [facility] Serum or plasma albumin luciana urement (mass/volume)Ordered By: Iman Aguayo on 08-02-2024 Albumin [Mass/Vol] 2.6 g/dL Low 3.4-4.8 [facility] Serum or plasma albumin/glob ulin mass ratioOrdered By: Iman Aguayo on 08-02-2024 Albumin/Globulin [Mass ratio] 1.0 {ratio} 0.9-2.4 [facility] Serum or plasma alkaline nolan sphatase measurementOrdered By: Iman Aguayo on 08-02-2024 ALP [Catalytic activity/Vol] 101 U/L 40-129 [facility] Serum or plasma cholesterol in HDL measurement (mass/volume)Ordered By: Iman Aguayo on 08-02-2024 Cholesterol in HDL [Mass/Vol] 33 mg/dL Low >40 [facility] Serum or plasma cholesterol measurement (mass/volume)Ordered By: Iman Aguayo on 08-02-2024 Cholesterol [Mass/Vol] 100 mg/dL <201 [facility] TSH DL <= 0.005 mIU/L QnOrde red By: Iman Aguayo on 08-02-2024 TSH Qn 2.140 uIU/mL 0.300-4.200 [facility] Total proteinOrdered By: Aut umn Olivier on 08-02-2024 Protein [Mass/Vol] 5.1 g/dL Low 5.9-8.4 [facility] Troponin T.cardiac [Mass/vol ume] in Serum or Plasma by High sensitivity methodOrdered By: Iman Aguayo on 08-02-2024 Troponin T.cardiac High sensitivity method [Mass/Vol] 95 ng/L High <22 [facility] Troponin T.cardiac High sensitivity method [Mass/Vol] 106 ng/L High <22 [facility] Absolute lymphocyte countOrd ered By: Tierney Macdonald on 08-01-2024 Lymphocytes Auto (Unsp spec) [#/Vol] 0.87 10*3/uL 0.83-4.51 [facility] Anion gap in Serum or Plasma Ordered By: Tierney Macdonald on 08-01-2024 Anion gap [Moles/Vol] 16 mmol/L High 5-15 [facility] Automated lymphocyte count a s percentage of total leukocytesOrdered By: Tierney Macdonald on 08-01-2024 Lymphocytes/100 WBC Auto (Unsp spec) 16.1 % Low 19-41 [facility] BUN/creatinine ratioOrdered By: Tierney Macdonald on 08-01-2024 Urea nitrogen/Creatinine [Mass ratio] 7.7 mg/mg Low 10-20 [facility] Basophil percentageOrdered B y: Tierney Macdonald on 08-01-2024 Basophils/100 WBC (Bld) 1.3 % High 0-1 [facility] Bilirubin, totalOrdered By: Tierney Macdonald on 08-01-2024 Bilirubin [Mass/Vol] 0.37 mg/dL 0.00-1.30 [facility] Carbon dioxide, total [Moles /volume] in Central venous bloodOrdered By: Tierney Macdonald on 08-01-2024 CO2 [Moles/Vol] 18.6 mmol/L Low 21.0-32.0 [facility] Chloride assayOrdered By: Sudeep Macdonald on 08-01-2024 Chloride [Moles/Vol] 103 mmol/L 98-108 [facility] Eosinophil percentageOrdered By: Tierney Macdonald on 08-01-2024 Eosinophils/100 WBC (Bld) 0.9 % 0-5 [facility] Erythrocyte distribution wid th ratioOrdered By: Tierney Macdonald on 08-01-2024 Erythrocyte distribution width (RBC) [Ratio] 14.3 % 11.6-14.6 [facility] Erythrocyte distribution wid th standard deviationOrdered By: Tierney Macdonald on 08-01-2024 Erythrocyte distribution width (RBC) [Ratio] 58.4 fl High 35.1-43.9 [facility] Glomerular filtration rate ( GFR) estimation/1.73 sq m using serum, plasma, or whole bOrdered By: Tierney Macdonald on 08-01-2024 GFR/1.73 sq M.predicted among non-blacks MDRD (S/P/Bld) [Vol rate/Area] 70 mL/min/{1.73_m2} >60 [facility] Hematocrit Auto (Bld) [Volum e fraction]Ordered By: Tierney Macdonald on 08-01-2024 Hematocrit (Bld) [Volume fraction] 34.0 % Low 40-54 [facility] Hemoglobin measurementOrdere d By: Tierney Macdonald on 08-01-2024 Hemoglobin (Bld) [Mass/Vol] 11.0 g/dL Low 13.0-16.5 [facility] Immature granulocytes/100 WB C Auto (Bld)Ordered By: Tierney Macdonald on 08-01-2024 Immature granulocytes/100 WBC (Bld) 0.400 % 0.0-0.9 [facility] MCV (mean corpuscular volume ) determinationOrdered By: Tierney Macdonald on 08-01-2024 MCV (RBC) [Entitic vol] 110.4 fL High 80-94 [facility] Magnesium measurement (mass/ volume)Ordered By: Iman Aguayo on 08-01-2024 Magnesium (Unsp spec) [Mass/Vol] 2.2 mg/dL 1.5-2.2 [facility] Mean corpuscular hemoglobin (MCH) determinationOrdered By: Tierney Macdonald on 08-01-2024 MCH (RBC) [Entitic mass] 35.7 pg High 27.0-32.0 [facility] Monocyte percentageOrdered B y: Tierney Macdonald on 08-01-2024 Monocytes/100 WBC (Bld) 8.0 % 0-10 [facility] Natriuretic peptide.B prohor irene N-Terminal [Mass/volume] in Serum or PlasmaOrdered By: Tierney Macdonald on 08-01-2024 Natriuretic peptide.B prohormone N-Terminal [Mass/Vol] 37133 pg/mL High <900 [facility] Neutrophil percentageOrdered By: Tierney Macdonald on 08-01-2024 Neutrophils/100 WBC (Bld) 73.3 % High 47-70 [facility] No Panel InformationOrdered By: Tierney Macdonald on 08-01-2024 48 U/L High <38 [facility] Platelet countOrdered By: Sudeep Macdonald on 08-01-2024 Platelets (Bld) [#/Vol] 189 10*3/uL 150-450 [facility] Potassium measurement (mass/ volume)Ordered By: Tierney Macdonald on 08-01-2024 Potassium (Unsp spec) [Mass/Vol] 3.8 mmol/L 3.3-5.1 [facility] RBC Auto (Bld) [#/Vol]Ordere d By: Tierney Macdonald on 08-01-2024 RBC (Bld) [#/Vol] 3.08 10*6/uL Low 4.6-6.2 [facility] Serum creatinine measurement (mass/volume)Ordered By: Tierney Macdonald on 08-01-2024 Creatinine [Mass/Vol] 1.17 mg/dL 0.70-1.20 [facility] Serum globulin measurementOr dered By: Tierney Macdonald on 08-01-2024 Globulin (S) [Mass/Vol] 3.3 g/dL 2.2-4.2 [facility] Serum glucose measurement (m ass/volume)Ordered By: Tierney Macdonald on 08-01-2024 Glucose [Mass/Vol] 159 mg/dL High 70-99 [facility] Serum or plasma alanine padilla otransferase (ALT) measurementOrdered By: Tierney Macdonald on 08-01-2024 ALT [Catalytic activity/Vol] 20 U/L <47 [facility] Serum or plasma albumin luciana urement (mass/volume)Ordered By: Tierney Macdonald on 08-01-2024 Albumin [Mass/Vol] 3.0 g/dL Low 3.4-4.8 [facility] Serum or plasma albumin/glob ulin mass ratioOrdered By: Tierney Macdonald on 08-01-2024 Albumin/Globulin [Mass ratio] 0.9 {ratio} 0.9-2.4 [facility] Serum or plasma alkaline nolan sphatase measurementOrdered By: Tierney Macdonald on 08-01-2024 ALP [Catalytic activity/Vol] 121 U/L 40-129 [facility] Serum or plasma calcium luciana urement (mass/volume)Ordered By: Tierney Macdonald on 08-01-2024 Calcium [Mass/Vol] 8.4 mg/dL 7.6-11.0 [facility] Serum or plasma urea nitroge n measurement (mass/volume)Ordered By: Tierney Macdonald on 08-01-2024 Urea nitrogen [Mass/Vol] 9 mg/dL 4-19 [facility] Sodium levelOrdered By: Alanis Macdonald on 08-01-2024 Sodium [Moles/Vol] 137 mmol/L 133-145 [facility] Total proteinOrdered By: Adrianna Macdonald on 08-01-2024 Protein [Mass/Vol] 6.3 g/dL 5.9-8.4 [facility] Troponin T.cardiac [Mass/vol ume] in Serum or Plasma by High sensitivity methodOrdered By: Iman Aguayo on 08-01-2024 Troponin T.cardiac High sensitivity method [Mass/Vol] 96 ng/L High <22 [facility] White blood cell (WBC) count Ordered By: Tierney Macdonald on 08-01-2024 WBC (Bld) [#/Vol] 5.4 10*3/uL 4.4-11.0 [facility] Glucose measurement at [facility] deOrdered By: Conrado Morel on 07-14-2024 Glucose [Mass/Vol] 235 mg/dL High 74-106 [facility] Absolute lymphocyte countOrd ered By: Conrado Morel on 07-13-2024 Lymphocytes Auto (Unsp spec) [#/Vol] 1.06 10*3/uL 0.83-4.51 [facility] Anion gap in Serum or Plasma Ordered By: Conrado Morel on 07-13-2024 Anion gap [Moles/Vol] 11 mmol/L 5-15 [facility] Automated lymphocyte count a s percentage of total leukocytesOrdered By: Conrado Morel on 07-13-2024 Lymphocytes/100 WBC Auto (Unsp spec) 16.6 % Low 19-41 [facility] BUN/creatinine ratioOrdered By: Conrado Morel on 07-13-2024 Urea nitrogen/Creatinine [Mass ratio] 6.7 mg/mg Low 10-20 [facility] Basophil percentageOrdered B y: Conrado Morel on 07-13-2024 Basophils/100 WBC (Bld) 0.9 % 0-1 [facility] Carbon dioxide, total [Moles /volume] in Central venous bloodOrdered By: Conrado Morel on 07-13-2024 CO2 [Moles/Vol] 21.2 mmol/L 21.0-32.0 [facility] Chloride assayOrdered By: Lauri Morel on 07-13-2024 Chloride [Moles/Vol] 107 mmol/L 98-108 [facility] Eosinophil percentageOrdered By: Conrado Morel on 07-13-2024 Eosinophils/100 WBC (Bld) 1.4 % 0-5 [facility] Erythrocyte distribution wid th ratioOrdered By: Conrado Morel on 07-13-2024 Erythrocyte distribution width (RBC) [Ratio] 15.6 % High 11.6-14.6 [facility] Erythrocyte distribution wid th standard deviationOrdered By: Conrado Morel on 07-13-2024 Erythrocyte distribution width (RBC) [Ratio] 63.7 fl High 35.1-43.9 [facility] Glomerular filtration rate ( GFR) estimation/1.73 sq m using serum, plasma, or whole bOrdered By: Conrado Morel on 07-13-2024 GFR/1.73 sq M.predicted among non-blacks MDRD (S/P/Bld) [Vol rate/Area] 69 mL/min/{1.73_m2} >60 [facility] Hematocrit Auto (Bld) [Volum e fraction]Ordered By: Conrado Morel on 07-13-2024 Hematocrit (Bld) [Volume fraction] 26.5 % Low 40-54 [facility] Hemoglobin measurementOrdere d By: Conrado Morel on 07-13-2024 Hemoglobin (Bld) [Mass/Vol] 8.5 g/dL Low 13.0-16.5 [facility] Immature granulocytes/100 WB C Auto (Bld)Ordered By: Conrado Morel on 07-13-2024 Immature granulocytes/100 WBC (Bld) 0.300 % 0.0-0.9 [facility] MCV (mean corpuscular volume ) determinationOrdered By: Conrado Morel on 07-13-2024 MCV (RBC) [Entitic vol] 111.8 fL High 80-94 [facility] Magnesium measurement (mass/ volume)Ordered By: Conrado Morel on 07-13-2024 Magnesium (Unsp spec) [Mass/Vol] 2.0 mg/dL 1.5-2.2 [facility] Mean corpuscular hemoglobin (MCH) determinationOrdered By: Conrado Morel on 07-13-2024 MCH (RBC) [Entitic mass] 35.9 pg High 27.0-32.0 [facility] Monocyte percentageOrdered B y: Conrado Morel on 07-13-2024 Monocytes/100 WBC (Bld) 6.6 % 0-10 [facility] Neutrophil percentageOrdered By: Conrado Morel on 07-13-2024 Neutrophils/100 WBC (Bld) 74.2 % High 47-70 [facility] Platelet countOrdered By: Lauri Morel on 07-13-2024 Platelets (Bld) [#/Vol] 165 10*3/uL 150-450 [facility] Potassium measurement (mass/ volume)Ordered By: Conrado Morel on 07-13-2024 Potassium (Unsp spec) [Mass/Vol] 4.4 mmol/L 3.3-5.1 [facility] RBC Auto (Bld) [#/Vol]Ordere d By: Conrado Morel on 07-13-2024 RBC (Bld) [#/Vol] 2.37 10*6/uL Low 4.6-6.2 [facility] Serum creatinine measurement (mass/volume)Ordered By: Conrado Morel on 07-13-2024 Creatinine [Mass/Vol] 1.19 mg/dL 0.70-1.20 [facility] Serum glucose measurement (m ass/volume)Ordered By: Conrado Morel on 07-13-2024 Glucose [Mass/Vol] 96 mg/dL 70-99 [facility] Serum or plasma calcium luciana urement (mass/volume)Ordered By: Conrado Morel on 07-13-2024 Calcium [Mass/Vol] 8.3 mg/dL 7.6-11.0 [facility] Serum or plasma urea nitroge n measurement (mass/volume)Ordered By: Conrado Morel on 07-13-2024 Urea nitrogen [Mass/Vol] 8 mg/dL 4-19 [facility] Sodium levelOrdered By: Lawrence Morel on 07-13-2024 Sodium [Moles/Vol] 139 mmol/L 133-145 [facility] White blood cell (WBC) count Ordered By: Conrado Morel on 07-13-2024 WBC (Bld) [#/Vol] 6.4 10*3/uL 4.4-11.0 [facility] Bedside Glucoseon 07-12-2024 FINGERSTICK GLU 94 mg/dL Normal 74-106 [facility] Comment on above: Result Comment: DAYANARA MORENO OF PATIENT CARE PER NURSING PROTOCOL Performed By: #### L 501.080 ####[facility] [address] [place], [place], [address] Bilirubin, totalOrdered By: Melonie De La Rosa on 07-12-2024 Bilirubin [Mass/Vol] 0.36 mg/dL 0.00-1.30 [facility] Body Fluid Cell Count+Diffon 07-12-2024 PATH COMM/BF Reviewed Normal [facility] Comment on above: Result Comment: NO M ALIGNANT CELLS OBSERVED.Fabiola Landaverde MD 07/12/2024 AMENDED REPORT 07/12/24 1412 PATH COMM/BF previously reported as: May follow Performed By: #### L 200.0200 ####[facility] [address] [place], [place], [address] CBC W/Diff, Automatedon Anisocytosis Ql (Bld) 1+ Normal [facility] Comment on above: Performed By: #### L 100.0100, L501.2300, L501.5200, L500.4050 ####[facility] [address] [place], [address] Comprehensive Metabolic Prof ilon 07-12-2024 Albumin [Mass/Vol] 2.5 g/dL Low 3.4-4.8 [facility] Comment on above: Performed By: #### L 100.0100, L501.2300, L501.5200, L500.4050 ####[facility] [address] [place], [address] Albumin/Globulin [Mass ratio] 0.9 {ratio} Normal 0.9-2.4 [facility] Comment on above: Performed By: #### L 100.0100, L501.2300, L501.5200, L500.4050 ####[facility] [address] [place], [address] ALK PHOS 90 U/L Normal 40-129 [facility] Comment on above: Performed By: #### L 100.0100, L501.2300, L501.5200, L500.4050 ####[facility] [address] [place], [address] ALT [Catalytic activity/Vol] 20 U/L Normal <=46 [facility] Comment on above: Performed By: #### L 100.0100, L501.2300, L501.5200, L500.4050 ####[facility] [address] [place], [address] AST [Catalytic activity/Vol] 51 U/L High <=37 [facility] Comment on above: Performed By: #### L 100.0100, L501.2300, L501.5200, L500.4050 ####[facility] [address] [place], [address] Bilirubin [Mass/Vol] 0.36 mg/dL Normal 0.00-1.30 [facility] Comment on above: Performed By: #### L 100.0100, L501.2300, L501.5200, L500.4050 ####[facility] [address] [place], [address] BUN/CRE 8.3 RATIO Low 10-20 [facility] Comment on above: Performed By: #### L 100.0100, L501.2300, L501.5200, L500.4050 ####[facility] [address] [place], [address] Calcium [Mass/Vol] 8.1 mg/dL Normal 7.6-11.0 [facility] Comment on above: Performed By: #### L 100.0100, L501.2300, L501.5200, L500.4050 ####[facility] [address] [place], [address] Chloride [Moles/Vol] 108 mmol/L Normal 98-108 [facility] Comment on above: Performed By: #### L 100.0100, L501.2300, L501.5200, L500.4050 ####[facility] [address] [place], [address] CO2 [Moles/Vol] 22.8 mmol/L Normal 21.0-32.0 [facility] Comment on above: Performed By: #### L 100.0100, L501.2300, L501.5200, L500.4050 ####[facility] [address] [place], [address] Creatinine [Mass/Vol] 1.12 mg/dL Normal 0.70-1.20 [facility] Comment on above: Performed By: #### L 100.0100, L501.2300, L501.5200, L500.4050 ####[facility] [address] [place], [address] ECRCL 63.78 ml/min Normal 50-250 [facility] Comment on above: Performed By: #### L 100.0100, L501.2300, L501.5200, L500.4050 ####[facility] [address] [place], [address] GAP 7 Normal 5-15 [facility] Comment on above: Performed By: #### L 100.0100, L501.2300, L501.5200, L500.4050 ####[facility] [address] [place], [address] GFR/1.73 sq M.predicted among non-blacks MDRD (S/P/Bld) [Vol rate/Area] 75 mL/min/{1.73_m2} Normal >60 [facility] Comment on above: Result Comment: mL/m in/1.73m2 CKD-EPI Creatinine Equation (2020) Performed By: #### L 100.0100, L501.2300, L501.5200, L500.4050 ####[facility] [address] [place], [address] Globulin (S) [Mass/Vol] 2.6 g/dL Normal 2.2-4.2 [facility] Comment on above: Performed By: #### L 100.0100, L501.2300, L501.5200, L500.4050 ####[facility] [address] [place], [address] Glucose [Mass/Vol] 93 mg/dL Normal 70-99 [facility] Comment on above: Performed By: #### L 100.0100, L501.2300, L501.5200, L500.4050 ####[facility] [address] [place], [address] Potassium [Moles/Vol] 4.2 mmol/L Normal 3.3-5.1 [facility] Comment on above: Performed By: #### L 100.0100, L501.2300, L501.5200, L500.4050 ####[facility] [address] [place], [address] Sodium [Moles/Vol] 138 mmol/L Normal 133-145 [facility] Comment on above: Performed By: #### L 100.0100, L501.2300, L501.5200, L500.4050 ####[facility] [address] [place], [address] T PROT 5.1 g/dL Low 5.9-8.4 [facility] Comment on above: Performed By: #### L 100.0100, L501.2300, L501.5200, L500.4050 ####[facility] [address] [place], [address] Urea nitrogen [Mass/Vol] 9 mg/dL Normal 4-19 [facility] Comment on above: Performed By: #### L 100.0100, L501.2300, L501.5200, L500.4050 ####[facility] [address] [place], [address] Consultation - Surgicalon Consultation - Surgical Normal [facility] Magnesiumon 07-12-2024 Magnesium [Mass/Vol] 2.0 mg/dL Normal 1.5-2.2 [facility] Comment on above: Performed By: #### L 100.0100, L501.2300, L501.5200, L500.4050 ####[facility] [address] [place], [address] No Panel InformationOrdered By: Melonie De La Rosa on 07-12-2024 1+ [facility] 51 U/L High <38 [facility] Phosphoruson 07-12-2024 Phosphate [Mass/Vol] 3.0 mg/dL Normal 2.7-4.5 [facility] Comment on above: Performed By: #### L 100.0100, L501.2300, L501.5200, L500.4050 ####[facility] [address] [place], [address] Serum globulin measurementOr dered By: Melonie De La Rosa on 07-12-2024 Globulin (S) [Mass/Vol] 2.6 g/dL 2.2-4.2 [facility] Serum or plasma alanine padilla otransferase (ALT) measurementOrdered By: Melonie De La Rosa on 07-12-2024 ALT [Catalytic activity/Vol] 20 U/L <47 [facility] Serum or plasma albumin luciana urement (mass/volume)Ordered By: Melonie De La Rosa on 07-12-2024 Albumin [Mass/Vol] 2.5 g/dL Low 3.4-4.8 [facility] Serum or plasma albumin/glob ulin mass ratioOrdered By: Melonie De La Rosa on 07-12-2024 Albumin/Globulin [Mass ratio] 0.9 {ratio} 0.9-2.4 [facility] Serum or plasma alkaline nolan sphatase measurementOrdered By: Melonie De La Rosa on 07-12-2024 ALP [Catalytic activity/Vol] 90 U/L 40-129 [facility] Total proteinOrdered By: Shira De La Rosa on 07-12-2024 Protein [Mass/Vol] 5.1 g/dL Low 5.9-8.4 [facility] Abdomen/Pelvis W IV Cont ONL Yon 07-11-2024 Abdomen/Pelvis W IV Cont ONLY Normal [facility] Absolute lymphocyte countOrd ered By: Perez Ribeiro on 07-11-2024 Lymphocytes Auto (Unsp spec) [#/Vol] 0.86 10*3/uL 0.83-4.51 [facility] Alcohol, Blood (Medical)-Ser umon 07-11-2024 SERUM ETOH < 10.1 Normal <=10.0 [facility] Comment on above: Result Comment: This test is for medical purposes only. The legaldefinition of intoxication varies according to local law. Performed By: #### L 505.5000, L100.0100, L501.9100, L500.2500, L500.3400, L501.2450 ####[facility] [address] [place], [place], [id number] Amphetamine detection with 1 000 ng/mL as cutoffOrdered By: Perez Ribeiro on 07-11-2024 Amphetamines Screen method >1000 ng/mL Ql (U) Negative <1000 ng/mL [facility] Amphetamines Screen method >1000 ng/mL Ql (U) Positive < 200 ng/mL [facility] Anion gap in Serum or Plasma Ordered By: Perez Ribeiro on 07-11-2024 Anion gap [Moles/Vol] 8 mmol/L 5-15 [facility] Automated lymphocyte count a s percentage of total leukocytesOrdered By: Perez Ribeiro on 07-11-2024 Lymphocytes/100 WBC Auto (Unsp spec) 15.4 % Low 19-41 [facility] BUN/creatinine ratioOrdered By: Perez Ribeiro on 07-11-2024 Urea nitrogen/Creatinine [Mass ratio] 8.9 mg/mg Low 10-20 [facility] Basic Metabolic Profile (BMP )on 07-11-2024 BUN/CRE 8.9 RATIO Low 10-20 [facility] Comment on above: Performed By: #### L 505.5000, L100.0100, L501.9100, L500.2500, L500.3400, L501.2450 ####[facility] [address] [place], [place], [id number] Calcium [Mass/Vol] 8.3 mg/dL Normal 7.6-11.0 [facility] Comment on above: Performed By: #### L 505.5000, L100.0100, L501.9100, L500.2500, L500.3400, L501.2450 ####[facility] [address] [place], [place], [address] Chloride [Moles/Vol] 103 mmol/L Normal 98-108 [facility] Comment on above: Performed By: #### L 505.5000, L100.0100, L501.9100, L500.2500, L500.3400, L501.2450 ####[facility] [address] [place], [address] CO2 [Moles/Vol] 28.3 mmol/L Normal 21.0-32.0 [facility] Comment on above: Performed By: #### L 505.5000, L100.0100, L501.9100, L500.2500, L500.3400, L501.2450 ####[facility] [address] [place], [address] Creatinine [Mass/Vol] 1.15 mg/dL Normal 0.70-1.20 [facility] Comment on above: Performed By: #### L 505.5000, L100.0100, L501.9100, L500.2500, L500.3400, L501.2450 ####[facility] [address] [place], [address] ECRCL 62.80 ml/min Normal 50-250 [facility] Comment on above: Performed By: #### L 505.5000, L100.0100, L501.9100, L500.2500, L500.3400, L501.2450 ####[facility] [address] [place], [address] GAP 8 Normal 5-15 [facility] Comment on above: Performed By: #### L 505.5000, L100.0100, L501.9100, L500.2500, L500.3400, L501.2450 ####[facility] [address] [place], [address] GFR/1.73 sq M.predicted among non-blacks MDRD (S/P/Bld) [Vol rate/Area] 72 mL/min/{1.73_m2} Normal >60 [facility] Comment on above: Result Comment: mL/m in/1.73m2 CKD-EPI Creatinine Equation (2020) Performed By: #### L 505.5000, L100.0100, L501.9100, L500.2500, L500.3400, L501.2450 ####[facility] [address] [place], [address] Glucose [Mass/Vol] 137 mg/dL High 70-99 [facility] Comment on above: Performed By: #### L 505.5000, L100.0100, L501.9100, L500.2500, L500.3400, L501.2450 ####[facility] [address] [place], [address] Potassium [Moles/Vol] 4.6 mmol/L Normal 3.3-5.1 [facility] Comment on above: Performed By: #### L 505.5000, L100.0100, L501.9100, L500.2500, L500.3400, L501.2450 ####[facility] [address] [place], [address] Sodium [Moles/Vol] 140 mmol/L Normal 133-145 [facility] Comment on above: Performed By: #### L 505.5000, L100.0100, L501.9100, L500.2500, L500.3400, L501.2450 ####[facility] [address] [place], [address] Urea nitrogen [Mass/Vol] 10 mg/dL Normal 4-19 [facility] Comment on above: Performed By: #### L 505.5000, L100.0100, L501.9100, L500.2500, L500.3400, L501.2450 ####[facility] [address] [place], [address] Basophil percentageOrdered B y: Perez Ribeiro on 06-03-2025 Basophils/100 WBC (Bld) 1.1 % High 0-1 [facility] Bedside Glucoseon 07-11-2024 FINGERSTICK GLU 97 mg/dL Normal 74-106 [facility] Comment on above: Result Comment: DAYANARA GEMENT OF PATIENT CARE PER NURSING PROTOCOL Performed By: #### L 501.080 ####[facility] [address] [place], [place], [id number] FINGERSTICK GLU 149 mg/dL High 74-106 [facility] Comment on above: Result Comment: DAYANARA GEMENT OF PATIENT CARE PER NURSING PROTOCOL Performed By: #### L 501.080 ####[facility] [address] [place], [address] Bilirubin Test strip Ql (U)O rdered By: Perez Ribeiro on 07-11-2024 Bilirubin Ql (U) Negative Negative [facility] Bilirubin directOrdered By: Perez Ribeiro on 07-11-2024 Bilirubin.direct [Mass/Vol] 0.21 mg/dL 0.00-0.30 [facility] Bilirubin, totalOrdered By: Perez Ribeiro on 07-11-2024 Bilirubin [Mass/Vol] 0.34 mg/dL 0.00-1.30 [facility] Blood polychromasia detectio n by light microscopyOrdered By: Perez Ribeiro on 07-11-2024 Polychromasia LM Ql (Bld) RARE [facility] CBC W/Diff, Automatedon Anisocytosis Ql (Bld) 1+ Normal [facility] Comment on above: Performed By: #### L 505.5000, L100.0100, L501.9100, L500.2500, L500.3400, L501.2450 ####[facility] [address] [place], [address] PLT EST A Normal ADEQ [facility] Comment on above: Performed By: #### L 505.5000, L100.0100, L501.9100, L500.2500, L500.3400, L501.2450 ####[facility] [address] [place], [address] POLYCHROMASIA RARE Normal [facility] Comment on above: Performed By: #### L 505.5000, L100.0100, L501.9100, L500.2500, L500.3400, L501.2450 ####[facility] [address] [place], [address] Carbon dioxide, total [Moles /volume] in Central venous bloodOrdered By: Perez Ribeiro on 07-11-2024 CO2 [Moles/Vol] 28.3 mmol/L 21.0-32.0 [facility] Chloride assayOrdered By: Prosper Ribeiro on 07-11-2024 Chloride [Moles/Vol] 103 mmol/L 98-108 [facility] Emergency Department Summary on 07-11-2024 Emergency Department Summary Normal [facility] Eosinophil percentageOrdered By: Perez Ribeiro on 07-11-2024 Eosinophils/100 WBC (Bld) 0.4 % 0-5 [facility] Erythrocyte distribution wid th ratioOrdered By: Perez Ribeiro on 07-11-2024 Erythrocyte distribution width (RBC) [Ratio] 16.1 % High 11.6-14.6 [facility] Erythrocyte distribution wid th standard deviationOrdered By: Perez Ribeiro on 07-11-2024 Erythrocyte distribution width (RBC) [Ratio] 66.4 fl High 35.1-43.9 [facility] Glomerular filtration rate ( GFR) estimation/1.73 sq m using serum, plasma, or whole bOrdered By: Perez Ribeiro on 07-11-2024 GFR/1.73 sq M.predicted among non-blacks MDRD (S/P/Bld) [Vol rate/Area] 72 mL/min/{1.73_m2} >60 [facility] H AND P Exam - Hospitaliston 07-11-2024 H&P Exam - Hospitalist Normal [facility] Hematocrit Auto (Bld) [Volum e fraction]Ordered By: Perez Ribeiro on 07-11-2024 Hematocrit (Bld) [Volume fraction] 29.1 % Low 40-54 [facility] Hemoglobin measurementOrdere d By: Perez Quintin on 07-11-2024 Hemoglobin (Bld) [Mass/Vol] 9.3 g/dL Low 13.0-16.5 [facility] Immature granulocytes/100 WB C Auto (Bld)Ordered By: Perez Ribeiro on 07-11-2024 Immature granulocytes/100 WBC (Bld) 0.500 % 0.0-0.9 [facility] Ketones Test strip Ql (U)Ord ered By: Perez Ribeiro on 07-11-2024 Ketones Ql (U) Negative Negative [facility] Lipaseon 07-11-2024 Lipase [Catalytic activity/Vol] 6 U/L Low 13-75 [facility] Comment on above: Result Comment: Mary Anne zamorano note:LIPASE revised reference range effective 22.New Lipase methodology. Expected to produce lower valuesthan the previous assay method.NEW Reference Range: 13 - 75 U/L Performed By: #### L 505.5000, L100.0100, L501.9100, L500.2500, L500.3400, L501.2450 ####[facility] [address] [place], [place], [id number] Liver Profileon 07-11-2024 Albumin [Mass/Vol] 2.9 g/dL Low 3.4-4.8 [facility] Comment on above: Performed By: #### L 505.5000, L100.0100, L501.9100, L500.2500, L500.3400, L501.2450 ####[facility] [address] [place], [place], [id number] ALK PHOS 104 U/L Normal 40-129 [facility] Comment on above: Performed By: #### L 505.5000, L100.0100, L501.9100, L500.2500, L500.3400, L501.2450 ####[facility] [address] [place], [address] ALT [Catalytic activity/Vol] 23 U/L Normal <=46 [facility] Comment on above: Performed By: #### L 505.5000, L100.0100, L501.9100, L500.2500, L500.3400, L501.2450 ####[facility] [address] [place], [address] AST [Catalytic activity/Vol] 53 U/L High <=37 [facility] Comment on above: Performed By: #### L 505.5000, L100.0100, L501.9100, L500.2500, L500.3400, L501.2450 ####[facility] [address] [place], [address] Bilirubin [Mass/Vol] 0.34 mg/dL Normal 0.00-1.30 [facility] Comment on above: Performed By: #### L 505.5000, L100.0100, L501.9100, L500.2500, L500.3400, L501.2450 ####[facility] [address] [place], [address] Bilirubin.direct [Mass/Vol] 0.21 mg/dL Normal 0.00-0.30 [facility] Comment on above: Performed By: #### L 505.5000, L100.0100, L501.9100, L500.2500, L500.3400, L501.2450 ####[facility] [address] [place], [address] Globulin (S) [Mass/Vol] 2.8 g/dL Normal 2.2-4.2 [facility] Comment on above: Performed By: #### L 505.5000, L100.0100, L501.9100, L500.2500, L500.3400, L501.2450 ####[facility] [address] [place], [address] T PROT 5.7 g/dL Low 5.9-8.4 [facility] Comment on above: Performed By: #### L 505.5000, L100.0100, L501.9100, L500.2500, L500.3400, L501.2450 ####[facility] [address] [place], [place], [id number] MCV (mean corpuscular volume ) determinationOrdered By: Perez Ribeiro on 07-11-2024 MCV (RBC) [Entitic vol] 111.5 fL High 80-94 [facility] Mean corpuscular hemoglobin (MCH) determinationOrdered By: Perez Ribeiro on 07-11-2024 MCH (RBC) [Entitic mass] 35.6 pg High 27.0-32.0 [facility] Monocyte percentageOrdered B y: Perez Ribeiro on 07-11-2024 Monocytes/100 WBC (Bld) 7.7 % 0-10 [facility] Mucus LM Ql (Urine sed)Order ed By: Perez Ribeiro on 07-11-2024 Mucus Ql (Urine sed) 0 SEEN /hpf [facility] Neutrophil percentageOrdered By: Perez Ribeiro on 07-11-2024 Neutrophils/100 WBC (Bld) 74.9 % High 47-70 [facility] Nitrite Test strip Ql (U)Ord ered By: Perez Ribeiro on 07-11-2024 Nitrite Ql (U) Negative Negative [facility] No Panel InformationOrdered By: Perez Ribeiro on 07-11-2024 1+ [facility] 53 U/L High <38 [facility] Negative < 200 ng/mL [facility] Platelet countOrdered By: Prosper Ribeiro on 07-11-2024 Platelets (Bld) [#/Vol] 155 10*3/uL 150-450 [facility] Platelet estimateOrdered By: Perez Ribeiro on 07-11-2024 Platelets LM Ql (Bld) A ADEQ [facility] Potassium measurement (mass/ volume)Ordered By: Perez Ribeiro on 07-11-2024 Potassium (Unsp spec) [Mass/Vol] 4.6 mmol/L 3.3-5.1 [facility] Protein Test strip Ql (U)Ord ered By: Perez Ribeiro on 07-11-2024 Protein Ql (U) 15 mg/dl High Negative [facility] RBC Auto (Bld) [#/Vol]Ordere d By: Perez Ribeiro on 07-11-2024 RBC (Bld) [#/Vol] 2.61 10*6/uL Low 4.6-6.2 [facility] Screening urine fentanyl mine surementOrdered By: Perez Ribeiro on 07-11-2024 fentaNYL Screen Ql (U) Negative [facility] Serum creatinine measurement (mass/volume)Ordered By: Perez Ribeiro on 07-11-2024 Creatinine [Mass/Vol] 1.15 mg/dL 0.70-1.20 [facility] Serum globulin measurementOr dered By: Perez Ribeiro on 07-11-2024 Globulin (S) [Mass/Vol] 2.8 g/dL 2.2-4.2 [facility] Serum glucose measurement (m ass/volume)Ordered By: Perez Ribeiro on 07-11-2024 Glucose [Mass/Vol] 137 mg/dL High 70-99 [facility] Serum or plasma alanine padilla otransferase (ALT) measurementOrdered By: Perez Ribeiro on 07-11-2024 ALT [Catalytic activity/Vol] 23 U/L <47 [facility] Serum or plasma albumin luciana urement (mass/volume)Ordered By: Perez Ribeiro on 07-11-2024 Albumin [Mass/Vol] 2.9 g/dL Low 3.4-4.8 [facility] Serum or plasma alkaline nolan sphatase measurementOrdered By: Perez Ribeiro on 07-11-2024 ALP [Catalytic activity/Vol] 104 U/L 40-129 [facility] Serum or plasma calcium luciana urement (mass/volume)Ordered By: Perez Ribeiro on 07-11-2024 Calcium [Mass/Vol] 8.3 mg/dL 7.6-11.0 [facility] Serum or plasma ethanol luciana urement (mass/volume)Ordered By: Perez Ribeiro on 07-11-2024 Ethanol [Mass/Vol] mg/dL <10.1 [facility] Serum or plasma urea nitroge n measurement (mass/volume)Ordered By: Perez Ribeiro on 07-11-2024 Urea nitrogen [Mass/Vol] 10 mg/dL 4-19 [facility] Sodium levelOrdered By: Beto Ribeiro on 07-11-2024 Sodium [Moles/Vol] 140 mmol/L 133-145 [facility] Squamous epithelial cells de tection in urine sediment by light microscopyOrdered By: Perez Ribeiro on 07-11-2024 Epithelial cells.squamous LM Ql (Urine sed) 0 SEEN /hpf 0-5 [facility] Total proteinOrdered By: Alonso Ribeiro on 07-11-2024 Protein [Mass/Vol] 5.7 g/dL Low 5.9-8.4 [facility] Urinalysis, Completeon 07-11 BACTERIA 0 SEEN Normal None Seen [facility] Comment on above: Order Comment: CLEAN CATCH Performed By: #### L 400.0001 ####[facility] [address] [place], [address] EPI,SQUAMOUS 0 SEEN Normal 0-5 [facility] Comment on above: Order Comment: CLEAN CATCH Performed By: #### L 400.0001 ####[facility] [address] [place], [address] Mucus Ql (Urine sed) 0 SEEN Normal [facility] Comment on above: Order Comment: CLEAN CATCH Performed By: #### L 400.0001 ####[facility] [address] [place], [address] RBC 0 SEEN Normal 0-5 [facility] Comment on above: Order Comment: CLEAN CATCH Performed By: #### L 400.0001 ####[facility] [address] [place], [address] WBC 0 SEEN Normal 0-5 [facility] Comment on above: Order Comment: CLEAN CATCH Performed By: #### L 400.0001 ####[facility] [address] [place], [address] Urine Drug Screen (VISTA)on 07-11-2024 AMPHETAMINES Negative Normal <1000 ng/mL [facility] Comment on above: Performed By: #### L 505.5000, L100.0100, L501.9100, L500.2500, L500.3400, L501.2450 ####[facility] [address] [place], [address] BARBITIURATES Positive Normal < 200 ng/mL [facility] Comment on above: Result Comment: If c onfirmation testing is needed, a separate order will berequired to send out testing to the reference laboratory. Performed By: #### L 505.5000, L100.0100, L501.9100, L500.2500, L500.3400, L501.2450 ####[facility] [address] [place], [place], [phone] BENZODIAZIPINE Negative Normal < 200 ng/mL [facility] Comment on above: Performed By: #### L 505.5000, L100.0100, L501.9100, L500.2500, L500.3400, L501.2450 ####[facility] [address] [place], [place], [phone] BUP Ur Drug Scr Negative Normal < 200 ng/mL [facility] Comment on above: Performed By: #### L 505.5000, L100.0100, L501.9100, L500.2500, L500.3400, L501.2450 ####[facility] [address] [place], [place], [phone] COCAINE Negative Normal < 300 ng/mL [facility] Comment on above: Performed By: #### L 505.5000, L100.0100, L501.9100, L500.2500, L500.3400, L501.2450 ####[facility] [address] [place], [place], [phone] Fentanyl Negative Normal [facility] Comment on above: Performed By: #### L 505.5000, L100.0100, L501.9100, L500.2500, L500.3400, L501.2450 ####[facility] [place] [facility] [address] [place], [address] METHADONE Negative Normal < 300 ng/mL [facility] Comment on above: Performed By: #### L 505.5000, L100.0100, L501.9100, L500.2500, L500.3400, L501.2450 ####[facility] [address] [place] [address] OPIATES Negative Normal < 300 ng/mL [facility] Comment on above: Performed By: #### L 505.5000, L100.0100, L501.9100, L500.2500, L500.3400, L501.2450 ####[facility] [address] [place], [place], [phone] OXYCODONE Negative Normal < 100 ng/mL [facility] Comment on above: Performed By: #### L 505.5000, L100.0100, L501.9100, L500.2500, L500.3400, L501.2450 ####[facility] [address] [place], [place], [phone] PCP Negative Normal < 25 ng/mL [facility] Comment on above: Performed By: #### L 505.5000, L100.0100, L501.9100, L500.2500, L500.3400, L501.2450 ####[facility] [address] [place] [address] THC Negative Normal < 50 ng/mL [facility] Comment on above: Performed By: #### L 505.5000, L100.0100, L501.9100, L500.2500, L500.3400, L501.2450 ####[facility] [address] [place], [address] Urine clarityOrdered By: Alonso Ribeiro on 07-11-2024 Clarity (U) Clear Clear [facility] Urine color determinationOrd ered By: Perez Ribeiro on 07-11-2024 Color (U) Yellow Yellow [facility] Urine glucose detectionOrder ed By: Perez Ribeiro on 07-11-2024 Glucose Ql (U) Normal mg/dl Normal [facility] Urine leukocyte esterase det ection by dipstickOrdered By: Perez Ribeiro on 07-11-2024 Leukocyte esterase Test strip Ql (U) Negative Negative [facility] Urine pHOrdered By: Perez plaza on 07-11-2024 pH (U) 8.0 [pH] 5.0 - 8.0 [facility] Urine phencyclidine (PCP) de tectionOrdered By: Perez Ribeiro on 07-11-2024 Phencyclidine Ql (U) Negative < 25 ng/mL [facility] Urine sediment bacteria coun t by microscopy (number/high power field)Ordered By: Perez Ribeiro on 07-11-2024 Bacteria LM.HPF (Urine sed) [#/Area] 0 /[HPF] None Seen [facility] Urine specific gravity measu rementOrdered By: Perez Ribeiro on 07-11-2024 Specific gravity (U) [Rel density] 1.010 1.002-1.030 [facility] Urine urobilinogen measureme ntOrdered By: Perez Ribeiro on 07-11-2024 Urobilinogen Ql (U) Normal mg/dl Normal [facility] White blood cell (WBC) count Ordered By: Perez Ribeiro on 07-11-2024 WBC (Bld) [#/Vol] 5.6 10*3/uL 4.4-11.0 [facility] White blood cell countOrdere d By: Perez Ribeiro on 07-11-2024 White blood cell count 0 SEEN /hpf 0-5 [facility] Basic Metabolic Profile (BMP )on 07-10-2024 BUN Normal 4- [facility] Comment on above: Result Comment: Canc elled via OM: Order cancelled - Patient discharged Performed By: #### L 500.2500, L100.0500 ####[facility] [address] [place], [address] BUN/CRE Normal 10-20 [facility] Comment on above: Result Comment: Canc elled via OM: Order cancelled - Patient discharged Performed By: #### L 500.2500, L100.0500 ####[facility] [address] [place], [address] Calcium Normal 7.6-11.0 [facility] Comment on above: Result Comment: Canc elled via OM: Order cancelled - Patient discharged Performed By: #### L 500.2500, L100.0500 ####[facility] [address] [place], [address] CL Normal 98-108 [facility] Comment on above: Result Comment: Canc elled via OM: Order cancelled - Patient discharged Performed By: #### L 500.2500, L100.0500 ####[facility] [address] [place], [address] CO2 Normal 21.0-32.0 [facility] Comment on above: Result Comment: Canc elled via OM: Order cancelled - Patient discharged Performed By: #### L 500.2500, L100.0500 ####[facility] [address] [place], [address] CREAT,SERUM Normal 0.70-1.20 [facility] Comment on above: Result Comment: Canc elled via OM: Order cancelled - Patient discharged Performed By: #### L 500.2500, L100.0500 ####[facility] [address] [place], [address] eGFR Normal >60 [facility] Comment on above: Result Comment: Canc elled via OM: Order cancelled - Patient discharged Performed By: #### L 500.2500, L100.0500 ####[facility] [address] [place], [address] GAP Normal 5-15 [facility] Comment on above: Result Comment: Canc elled via OM: Order cancelled - Patient discharged Performed By: #### L 500.2500, L100.0500 ####[facility] [address] [place], [address] GLU Normal 70-99 [facility] Comment on above: Result Comment: Canc elled via OM: Order cancelled - Patient discharged Performed By: #### L 500.2500, L100.0500 ####[facility] [address] [place], [address] Potassium Normal 3.3-5.1 [facility] Comment on above: Result Comment: Canc elled via OM: Order cancelled - Patient discharged Performed By: #### L 500.2500, L100.0500 ####[facility] [address] [place], [address] Basic Metabolic Profile (BMP) Normal 133-145 [facility] Comment on above: Result Comment: Canc elled via OM: Order cancelled - Patient discharged Performed By: #### L 500.2500, L100.0500 ####[facility] [address] [place], [address] CBC-Complete Blood Cnt No Di ffon 07-10-2024 HCT Normal 40-54 [facility] Comment on above: Result Comment: Canc elled via OM: Order cancelled - Patient discharged Performed By: #### L 500.2500, L100.0500 ####[facility] [address] [place], [address] HGB Normal 13.0-16.5 [facility] Comment on above: Result Comment: Canc elled via OM: Order cancelled - Patient discharged Performed By: #### L 500.2500, L100.0500 ####[facility] [address] [place], [address] MCH Normal 27.0-32.0 [facility] Comment on above: Result Comment: Canc elled via OM: Order cancelled - Patient discharged Performed By: #### L 500.2500, L100.0500 ####[facility] [address] [place], [address] MCHC Normal 32-36 [facility] Comment on above: Result Comment: Canc elled via OM: Order cancelled - Patient discharged Performed By: #### L 500.2500, L100.0500 ####[facility] [address] [place], [address] MCV Normal 80-94 [facility] Comment on above: Result Comment: Canc elled via OM: Order cancelled - Patient discharged Performed By: #### L 500.2500, L100.0500 ####[facility] [address] [place], [address] PLT Normal 150-450 [facility] Comment on above: Result Comment: Canc elled via OM: Order cancelled - Patient discharged Performed By: #### L 500.2500, L100.0500 ####[facility] [address] [place], [address] RBC Normal 4.6-6.2 [facility] Comment on above: Result Comment: Canc elled via OM: Order cancelled - Patient discharged Performed By: #### L 500.2500, L100.0500 ####[facility] [address] [place], [address] RDW CV Normal 11.6-14.6 [facility] Comment on above: Result Comment: Canc elled via OM: Order cancelled - Patient discharged Performed By: #### L 500.2500, L100.0500 ####[facility] [address] [place], [address] RDW SD Normal 35.1-43.9 [facility] Comment on above: Result Comment: Canc elled via OM: Order cancelled - Patient discharged Performed By: #### L 500.2500, L100.0500 ####[facility] [address] [place], [address] WBC Normal 4.4-11.0 [facility] Comment on above: Result Comment: Canc elled via OM: Order cancelled - Patient discharged Performed By: #### L 500.2500, L100.0500 ####[facility] [address] [place], [address] Basic Metabolic Profile (BMP )on 07-09-2024 BUN Normal 4-19 [facility] Comment on above: Result Comment: Canc elled via OM: MD Ordered Performed By: #### L 500.2500 ####[facility] [address] [place], [address] Result Comment: Canc elled via OM: Order cancelled - Patient discharged Performed By: #### L 500.2500, L100.0500 ####[facility] [address] [place], [address] BUN/CRE Normal 10-20 [facility] Comment on above: Result Comment: Canc elled via OM: MD Ordered Performed By: #### L 500.2500 ####[facility] [address] [place], [address] Result Comment: Canc elled via OM: Order cancelled - Patient discharged Performed By: #### L 500.2500, L100.0500 ####[facility] [address] [place], [address] Calcium Normal 7.6-11.0 [facility] Comment on above: Result Comment: Canc elled via OM: MD Ordered Performed By: #### L 500.2500 ####[facility] [address] [place], [address] Result Comment: Canc elled via OM: Order cancelled - Patient discharged Performed By: #### L 500.2500, L100.0500 ####[facility] [address] [place], [address] CL Normal 98-108 [facility] Comment on above: Result Comment: Canc elled via OM: MD Ordered Performed By: #### L 500.2500 ####[facility] [address] [place], [address] Result Comment: Canc elled via OM: Order cancelled - Patient discharged Performed By: #### L 500.2500, L100.0500 ####[facility] [address] [place], [address] CO2 Normal 21.0-32.0 [facility] Comment on above: Result Comment: Canc elled via OM: MD Ordered Performed By: #### L 500.2500 ####[facility] [address] [place], [address] Result Comment: Canc elled via OM: Order cancelled - Patient discharged Performed By: #### L 500.2500, L100.0500 ####[facility] [address] [place], [address] CREAT,SERUM Normal 0.70-1.20 [facility] Comment on above: Result Comment: Canc elled via OM: MD Ordered Performed By: #### L 500.2500 ####[facility] [address] [place], [address] Result Comment: Canc elled via OM: Order cancelled - Patient discharged Performed By: #### L 500.2500, L100.0500 ####[facility] [address] [place], [address] eGFR Normal >60 [facility] Comment on above: Result Comment: Canc elled via OM: MD Ordered Performed By: #### L 500.2500 ####[facility] [address] [place], [address] Result Comment: Canc elled via OM: Order cancelled - Patient discharged Performed By: #### L 500.2500, L100.0500 ####[facility] [address] [place], [address] GAP Normal 5-15 [facility] Comment on above: Result Comment: Canc elled via OM: MD Ordered Performed By: #### L 500.2500 ####[facility] [address] [place], [address] Result Comment: Canc elled via OM: Order cancelled - Patient discharged Performed By: #### L 500.2500, L100.0500 ####[facility] [address] [place], [address] GLU Normal 70-99 [facility] Comment on above: Result Comment: Canc elled via OM: MD Ordered Performed By: #### L 500.2500 ####[facility] [address] [place], [address] Result Comment: Canc elled via OM: Order cancelled - Patient discharged Performed By: #### L 500.2500, L100.0500 ####[facility] [address] [place], [address] Potassium Normal 3.3-5.1 [facility] Comment on above: Result Comment: Canc elled via OM: MD Ordered Performed By: #### L 500.2500 ####[facility] [address] [place], [address] Result Comment: Canc elled via OM: Order cancelled - Patient discharged Performed By: #### L 500.2500, L100.0500 ####[facility] [address] [place], [address] Basic Metabolic Profile (BMP) Normal 133-145 [facility] Comment on above: Result Comment: Canc elled via OM: MD Ordered Performed By: #### L 500.2500 ####[facility] [address] [place], [address] Result Comment: Canc elled via OM: Order cancelled - Patient discharged Performed By: #### L 500.2500, L100.0500 ####[facility] [address] [place], [address] CBC-Complete Blood Cnt No Di ffon 07-09-2024 HCT Normal 40-54 [facility] Comment on above: Result Comment: Canc elled via OM: MD Ordered Performed By: #### L 100.0500 ####[facility] [address] [place], [address] HGB Normal 13.0-16.5 [facility] Comment on above: Result Comment: Canc elled via OM: MD Ordered Performed By: #### L 100.0500 ####[facility] [address] [place], [address] MCH Normal 27.0-32.0 [facility] Comment on above: Result Comment: Canc elled via OM: MD Ordered Performed By: #### L 100.0500 ####[facility] [address] [place], [address] MCHC Normal 32-36 [facility] Comment on above: Result Comment: Canc elled via OM: MD Ordered Performed By: #### L 100.0500 ####[facility] [address] [place], [address] MCV Normal 80-94 [facility] Comment on above: Result Comment: Canc elled via OM: MD Ordered Performed By: #### L 100.0500 ####[facility] [address] [place], [address] PLT Normal 150-450 [facility] Comment on above: Result Comment: Canc elled via OM: MD Ordered Performed By: #### L 100.0500 ####[facility] [address] [place], [address] RBC Normal 4.6-6.2 [facility] Comment on above: Result Comment: Canc elled via OM: MD Ordered Performed By: #### L 100.0500 ####[facility] [address] [place], [address] RDW CV Normal 11.6-14.6 [facility] Comment on above: Result Comment: Canc elled via OM: MD Ordered Performed By: #### L 100.0500 ####[facility] [address] [place], [address] RDW SD Normal 35.1-43.9 [facility] Comment on above: Result Comment: Canc elled via OM: MD Ordered Performed By: #### L 100.0500 ####[facility] [address] [place], [address] WBC Normal 4.4-11.0 [facility] Comment on above: Result Comment: Canc elled via OM: MD Ordered Performed By: #### L 100.0500 ####[facility] [address] [place], [address] HCT Normal 40-54 [facility] Comment on above: Result Comment: Canc elled via OM: Order cancelled - Patient discharged Performed By: #### L 500.2500, L100.0500 ####[facility] [address] [place], [address] HGB Normal 13.0-16.5 [facility] Comment on above: Result Comment: Canc elled via OM: Order cancelled - Patient discharged Performed By: #### L 500.2500, L100.0500 ####[facility] [address] [place], [address] MCH Normal 27.0-32.0 [facility] Comment on above: Result Comment: Canc elled via OM: Order cancelled - Patient discharged Performed By: #### L 500.2500, L100.0500 ####[facility] [address] [place], [address] MCHC Normal 32-36 [facility] Comment on above: Result Comment: Canc elled via OM: Order cancelled - Patient discharged Performed By: #### L 500.2500, L100.0500 ####[facility] [address] [place], [address] MCV Normal 80-94 [facility] Comment on above: Result Comment: Canc elled via OM: Order cancelled - Patient discharged Performed By: #### L 500.2500, L100.0500 ####[facility] [address] [place], [address] PLT Normal 150-450 [facility] Comment on above: Result Comment: Canc elled via OM: Order cancelled - Patient discharged Performed By: #### L 500.2500, L100.0500 ####[facility] [address] [place], [address] RBC Normal 4.6-6.2 [facility] Comment on above: Result Comment: Canc elled via OM: Order cancelled - Patient discharged Performed By: #### L 500.2500, L100.0500 ####[facility] [address] [place], [address] RDW CV Normal 11.6-14.6 [facility] Comment on above: Result Comment: Canc elled via OM: Order cancelled - Patient discharged Performed By: #### L 500.2500, L100.0500 ####[facility] [address] [place], [address] RDW SD Normal 35.1-43.9 [facility] Comment on above: Result Comment: Canc elled via OM: Order cancelled - Patient discharged Performed By: #### L 500.2500, L100.0500 ####[facility] [address] [place], [address] WBC Normal 4.4-11.0 [facility] Comment on above: Result Comment: Canc elled via OM: Order cancelled - Patient discharged Performed By: #### L 500.2500, L100.0500 ####[facility] [address] [place], [address] Basic Metabolic Profile (BMP )on 07-08-2024 BUN Normal 4-19 [facility] Comment on above: Result Comment: Canc elled via OM: Order cancelled - Patient discharged Performed By: #### L 500.2500, L100.0500 ####[facility] [address] [place], [address] BUN/CRE Normal 10-20 [facility] Comment on above: Result Comment: Canc elled via OM: Order cancelled - Patient discharged Performed By: #### L 500.2500, L100.0500 ####[facility] [address] [place], [address] Calcium Normal 7.6-11.0 [facility] Comment on above: Result Comment: Canc elled via OM: Order cancelled - Patient discharged Performed By: #### L 500.2500, L100.0500 ####[facility] [address] [place], [address] CL Normal 98-108 [facility] Comment on above: Result Comment: Canc elled via OM: Order cancelled - Patient discharged Performed By: #### L 500.2500, L100.0500 ####[facility] [address] [place], [address] CO2 Normal 21.0-32.0 [facility] Comment on above: Result Comment: Canc elled via OM: Order cancelled - Patient discharged Performed By: #### L 500.2500, L100.0500 ####[facility] [address] [place], [address] CREAT,SERUM Normal 0.70-1.20 [facility] Comment on above: Result Comment: Canc elled via OM: Order cancelled - Patient discharged Performed By: #### L 500.2500, L100.0500 ####[facility] [address] [place], [address] eGFR Normal >60 [facility] Comment on above: Result Comment: Canc elled via OM: Order cancelled - Patient discharged Performed By: #### L 500.2500, L100.0500 ####[facility] [address] [place], [address] GAP Normal 5-15 [facility] Comment on above: Result Comment: Canc elled via OM: Order cancelled - Patient discharged Performed By: #### L 500.2500, L100.0500 ####[facility] [address] [place], [address] GLU Normal 70-99 [facility] Comment on above: Result Comment: Canc elled via OM: Order cancelled - Patient discharged Performed By: #### L 500.2500, L100.0500 ####[facility] [address] [place], [address] Potassium Normal 3.3-5.1 [facility] Comment on above: Result Comment: Canc elled via OM: Order cancelled - Patient discharged Performed By: #### L 500.2500, L100.0500 ####[facility] [address] [place], [address] Basic Metabolic Profile (BMP) Normal 133-145 [facility] Comment on above: Result Comment: Canc elled via OM: Order cancelled - Patient discharged Performed By: #### L 500.2500, L100.0500 ####[facility] [address] [place], [address] CBC-Complete Blood Cnt No Di ffon 07-08-2024 HCT Normal 40-54 [facility] Comment on above: Result Comment: Canc elled via OM: Order cancelled - Patient discharged Performed By: #### L 500.2500, L100.0500 ####[facility] [address] [place], [address] HGB Normal 13.0-16.5 [facility] Comment on above: Result Comment: Canc elled via OM: Order cancelled - Patient discharged Performed By: #### L 500.2500, L100.0500 ####[facility] [address] [place], [address] MCH Normal 27.0-32.0 [facility] Comment on above: Result Comment: Canc elled via OM: Order cancelled - Patient discharged Performed By: #### L 500.2500, L100.0500 ####[facility] [address] [place], [address] MCHC Normal 32-36 [facility] Comment on above: Result Comment: Canc elled via OM: Order cancelled - Patient discharged Performed By: #### L 500.2500, L100.0500 ####[facility] [address] [place], [address] MCV Normal 80-94 [facility] Comment on above: Result Comment: Canc elled via OM: Order cancelled - Patient discharged Performed By: #### L 500.2500, L100.0500 ####[facility] [address] [place], [address] PLT Normal 150-450 [facility] Comment on above: Result Comment: Canc elled via OM: Order cancelled - Patient discharged Performed By: #### L 500.2500, L100.0500 ####[facility] [address] [place], [address] RBC Normal 4.6-6.2 [facility] Comment on above: Result Comment: Canc elled via OM: Order cancelled - Patient discharged Performed By: #### L 500.2500, L100.0500 ####[facility] [address] [place], [address] RDW CV Normal 11.6-14.6 [facility] Comment on above: Result Comment: Canc elled via OM: Order cancelled - Patient discharged Performed By: #### L 500.2500, L100.0500 ####[facility] [address] [place], [address] RDW SD Normal 35.1-43.9 [facility] Comment on above: Result Comment: Canc elled via OM: Order cancelled - Patient discharged Performed By: #### L 500.2500, L100.0500 ####[facility] [address] [place], [address] WBC Normal 4.4-11.0 [facility] Comment on above: Result Comment: Canc elled via OM: Order cancelled - Patient discharged Performed By: #### L 500.2500, L100.0500 ####[facility] [address] [place], [address] ANCAon 07-07-2024 Atypical pANCA <1:20 Normal Neg:<1:20 [facility] Comment on above: Result Comment: The atypical pANCA pattern has been observed in asignificant percentage of patients with ulcerative colitis,primary sclerosing cholangitis and autoimmune hepatitis. Performed By: #### L 3300.1200, L3600.4030, L3100.3425, L501.6710, L3400.8000, L3410.2350, L101.9900 ####[facility] [address] [place], [address] Cytoplasmic Ab <1:20 Normal Neg:<1:20 [facility] Comment on above: Performed By: #### L 3300.1200, L3600.4030, L3100.3425, L501.6710, L3400.8000, L3410.2350, L101.9900 ####[facility] [address] [place], [address] Perinuclear Ab. <1:20 Normal Neg:<1:20 [facility] Comment on above: Result Comment: The presence of positive fluorescence exhibiting P-ANCA orC-ANCA patterns alone is not specific for the diagnosis ofWegener's Granulomatosis (WG) or microscopic polyangiitis.Decisions about treatment should not be based solely onANCA IFA results. The [employer] Consensusrecommends follow up testing of positive sera with both GA-3 and MPO-ANCA enzyme immunoassays. As many as 5% serumsamples are positive only by EIA. Ref. AM J Clin Tlbmhb1839;111:507-513. Performed By: #### L 3300.1200, L3600.4030, L3100.3425, L501.6710, L3400.8000, L3410.2350, L101.9900 ####[facility] [address] [place], [address] Basic Metabolic Profile (BMP )on 07-07-2024 BUN Normal 4-19 [facility] Comment on above: Result Comment: Canc elled via OM: MD Ordered Performed By: #### L 500.2500 ####[facility] [address] [place], [address] Result Comment: Canc elled via OM: Order cancelled - Patient discharged Performed By: #### L 500.2500, L100.0500 ####[facility] [address] [place], [address] BUN/CRE Normal 10-20 [facility] Comment on above: Result Comment: Canc elled via OM: MD Ordered Performed By: #### L 500.2500 ####[facility] [address] [place], [address] Result Comment: Canc elled via OM: Order cancelled - Patient discharged Performed By: #### L 500.2500, L100.0500 ####[facility] [address] [place], [address] Calcium Normal 7.6-11.0 [facility] Comment on above: Result Comment: Canc elled via OM: MD Ordered Performed By: #### L 500.2500 ####[facility] [address] [place], [address] Result Comment: Canc elled via OM: Order cancelled - Patient discharged Performed By: #### L 500.2500, L100.0500 ####[facility] [address] [place], [address] CL Normal 98-108 [facility] Comment on above: Result Comment: Canc elled via OM: MD Ordered Performed By: #### L 500.2500 ####[facility] [address] [place], [address] Result Comment: Canc elled via OM: Order cancelled - Patient discharged Performed By: #### L 500.2500, L100.0500 ####[facility] [address] [place], [address] CO2 Normal 21.0-32.0 [facility] Comment on above: Result Comment: Canc elled via OM: MD Ordered Performed By: #### L 500.2500 ####[facility] [address] [place], [address] Result Comment: Canc elled via OM: Order cancelled - Patient discharged Performed By: #### L 500.2500, L100.0500 ####[facility] [address] [place], [address] CREAT,SERUM Normal 0.70-1.20 [facility] Comment on above: Result Comment: Canc elled via OM: MD Ordered Performed By: #### L 500.2500 ####[facility] [address] [place], [address] Result Comment: Canc elled via OM: Order cancelled - Patient discharged Performed By: #### L 500.2500, L100.0500 ####[facility] [address] [place], [address] eGFR Normal >60 [facility] Comment on above: Result Comment: Canc elled via OM: MD Ordered Performed By: #### L 500.2500 ####[facility] [address] [place], [address] Result Comment: Canc elled via OM: Order cancelled - Patient discharged Performed By: #### L 500.2500, L100.0500 ####[facility] [address] [place], [address] GAP Normal 5-15 [facility] Comment on above: Result Comment: Canc elled via OM: MD Ordered Performed By: #### L 500.2500 ####[facility] [address] [place], [address] Result Comment: Canc elled via OM: Order cancelled - Patient discharged Performed By: #### L 500.2500, L100.0500 ####[facility] [address] [place], [address] GLU Normal 70-99 [facility] Comment on above: Result Comment: Canc elled via OM: MD Ordered Performed By: #### L 500.2500 ####[facility] [address] [place], [address] Result Comment: Canc elled via OM: Order cancelled - Patient discharged Performed By: #### L 500.2500, L100.0500 ####[facility] [address] [place], [address] Potassium Normal 3.3-5.1 [facility] Comment on above: Result Comment: Canc elled via OM: MD Ordered Performed By: #### L 500.2500 ####[facility] [address] [place], [address] Result Comment: Canc elled via OM: Order cancelled - Patient discharged Performed By: #### L 500.2500, L100.0500 ####[facility] [address] [place], [address] Basic Metabolic Profile (BMP) Normal 133-145 [facility] Comment on above: Result Comment: Canc elled via OM: MD Ordered Performed By: #### L 500.2500 ####[facility] [address] [place], [address] Result Comment: Canc elled via OM: Order cancelled - Patient discharged Performed By: #### L 500.2500, L100.0500 ####[facility] [address] [place], [address] CBC-Complete Blood Cnt No Di ffon 07-07-2024 HCT Normal 40-54 [facility] Comment on above: Result Comment: Canc elled via OM: MD Ordered Performed By: #### L 100.0500 ####[facility] [address] [place], [address] HGB Normal 13.0-16.5 [facility] Comment on above: Result Comment: Canc elled via OM: MD Ordered Performed By: #### L 100.0500 ####[facility] [address] [place], [address] MCH Normal 27.0-32.0 [facility] Comment on above: Result Comment: Canc elled via OM: MD Ordered Performed By: #### L 100.0500 ####[facility] [address] [place], [address] MCHC Normal 32-36 [facility] Comment on above: Result Comment: Canc elled via OM: MD Ordered Performed By: #### L 100.0500 ####[facility] [address] [place], [address] MCV Normal 80-94 [facility] Comment on above: Result Comment: Canc elled via OM: MD Ordered Performed By: #### L 100.0500 ####[facility] [address] [place], [address] PLT Normal 150-450 [facility] Comment on above: Result Comment: Canc elled via OM: MD Ordered Performed By: #### L 100.0500 ####[facility] [address] [place], [address] RBC Normal 4.6-6.2 [facility] Comment on above: Result Comment: Canc elled via OM: MD Ordered Performed By: #### L 100.0500 ####[facility] [address] [place], [address] RDW CV Normal 11.6-14.6 [facility] Comment on above: Result Comment: Canc elled via OM: MD Ordered Performed By: #### L 100.0500 ####[facility] [address] [place], [address] RDW SD Normal 35.1-43.9 [facility] Comment on above: Result Comment: Canc elled via OM: MD Ordered Performed By: #### L 100.0500 ####[facility] [address] [place], [address] WBC Normal 4.4-11.0 [facility] Comment on above: Result Comment: Canc elled via OM: MD Ordered Performed By: #### L 100.0500 ####[facility] [address] [place], [address] HCT Normal 40-54 [facility] Comment on above: Result Comment: Canc elled via OM: Order cancelled - Patient discharged Performed By: #### L 500.2500, L100.0500 ####[facility] [address] [place], [address] HGB Normal 13.0-16.5 [facility] Comment on above: Result Comment: Canc elled via OM: Order cancelled - Patient discharged Performed By: #### L 500.2500, L100.0500 ####[facility] [address] [place], [address] MCH Normal 27.0-32.0 [facility] Comment on above: Result Comment: Canc elled via OM: Order cancelled - Patient discharged Performed By: #### L 500.2500, L100.0500 ####[facility] [address] [place], [address] MCHC Normal 32-36 [facility] Comment on above: Result Comment: Canc elled via OM: Order cancelled - Patient discharged Performed By: #### L 500.2500, L100.0500 ####[facility] [address] [place], [address] MCV Normal 80-94 [facility] Comment on above: Result Comment: Canc elled via OM: Order cancelled - Patient discharged Performed By: #### L 500.2500, L100.0500 ####[facility] [address] [place], [address] PLT Normal 150-450 [facility] Comment on above: Result Comment: Canc elled via OM: Order cancelled - Patient discharged Performed By: #### L 500.2500, L100.0500 ####[facility] [address] [place], [address] RBC Normal 4.6-6.2 [facility] Comment on above: Result Comment: Canc elled via OM: Order cancelled - Patient discharged Performed By: #### L 500.2500, L100.0500 ####[facility] [address] [place], [address] RDW CV Normal 11.6-14.6 [facility] Comment on above: Result Comment: Canc elled via OM: Order cancelled - Patient discharged Performed By: #### L 500.2500, L100.0500 ####[facility] [address] [place], [address] RDW SD Normal 35.1-43.9 [facility] Comment on above: Result Comment: Canc elled via OM: Order cancelled - Patient discharged Performed By: #### L 500.2500, L100.0500 ####[facility] [address] [place], [address] WBC Normal 4.4-11.0 [facility] Comment on above: Result Comment: Canc elled via OM: Order cancelled - Patient discharged Performed By: #### L 500.2500, L100.0500 ####[facility] [address] [place], [address] Celiac AB,Comprehensiveon ANTIGLIADIN IGA 2 units Normal 0-19 [facility] Comment on above: Result Comment: Nega tive 0 - 19 Weak Positive 20 - 30 Moderate to Strong Positive >30 Performed By: #### L 3300.1200, L3600.4030, L3100.3425, L501.6710, L3400.8000, L3410.2350, L101.9900 ####[facility] [address] [place], [address] ANTIGLIADIN IGG <1 Normal 0-19 [facility] Comment on above: Result Comment: Nega tive 0 - 19 Weak Positive 20 - 30 Moderate to Strong Positive >30 Performed By: #### L 3300.1200, L3600.4030, L3100.3425, L501.6710, L3400.8000, L3410.2350, L101.9900 ####[facility] [address] [place], [place], [id number] ENDOMYSIAL IGA Negative Normal Negative [facility] Comment on above: Performed By: #### L 3300.1200, L3600.4030, L3100.3425, L501.6710, L3400.8000, L3410.2350, L101.9900 ####[facility] [address] [place], [address] tTG IGA <2 Normal 0-3 [facility] Comment on above: Result Comment: Nega tive 0 - 3 Weak Positive 4 - 10 Positive >10 Tissue Transglutaminase (tTG) has been identified as the endomysial antigen. Studies have demonstr- ated that endomysial IgA antibodies have over 99% specificity for gluten sensitive enteropathy. Performed By: #### L 3300.1200, L3600.4030, L3100.3425, L501.6710, L3400.8000, L3410.2350, L101.9900 ####[facility] [address] [place], [address] tTG IGG <2 Normal 0-5 [facility] Comment on above: Result Comment: Nega tive 0 - 5 Weak Positive 6 - 9 Positive >9 Performed By: #### L 3300.1200, L3600.4030, L3100.3425, L501.6710, L3400.8000, L3410.2350, L101.9900 ####[facility] [address] [place], [address] HELENA + Protein Elect, Serumon 07-07-2024 Albumin [Mass/Vol] 2.1 g/dL Low 2.9-4.4 [facility] Comment on above: Order Comment: N Performed By: #### L 3300.1200, L3600.4030, L3100.3425, L501.6710, L3400.8000, L3410.2350, L101.9900 ####[facility] [address] [place], [address] Albumin/Globulin [Mass ratio] 1.1 {ratio} Normal 0.7-1.7 [facility] Comment on above: Order Comment: N Performed By: #### L 3300.1200, L3600.4030, L3100.3425, L501.6710, L3400.8000, L3410.2350, L101.9900 ####[facility] [address] [place], [address] YIOTG-7-JYFL 0.2 g/dL Normal 0.0-0.4 [facility] Comment on above: Order Comment: N Performed By: #### L 3300.1200, L3600.4030, L3100.3425, L501.6710, L3400.8000, L3410.2350, L101.9900 ####[facility] [address] [place], [address] AWZUN-0-JVHG 0.4 g/dL Normal 0.4-1.0 [facility] Comment on above: Order Comment: N Performed By: #### L 3300.1200, L3600.4030, L3100.3425, L501.6710, L3400.8000, L3410.2350, L101.9900 ####[facility] [address] [place], [address] BETA GLOBULIN 0.7 g/dL Normal 0.7-1.3 [facility] Comment on above: Order Comment: N Performed By: #### L 3300.1200, L3600.4030, L3100.3425, L501.6710, L3400.8000, L3410.2350, L101.9900 ####[facility] [address] [place], [address] GAMMA GLOBULIN 0.7 g/dL Normal 0.4-1.8 [facility] Comment on above: Order Comment: N Performed By: #### L 3300.1200, L3600.4030, L3100.3425, L501.6710, L3400.8000, L3410.2350, L101.9900 ####[facility] [address] [place], [address] Globulin (S) [Mass/Vol] 2.0 g/dL Abnormal 2.2-3.9 [facility] Comment on above: Order Comment: N Performed By: #### L 3300.1200, L3600.4030, L3100.3425, L501.6710, L3400.8000, L3410.2350, L101.9900 ####[facility] [address] [place], [address] HELENA RESULT,S Comment Normal . [facility] Comment on above: Order Comment: N Result Comment: No m onoclonality detected. Performed By: #### L 3300.1200, L3600.4030, L3100.3425, L501.6710, L3400.8000, L3410.2350, L101.9900 ####[facility] [address] [place], [address] IMMUNOGLOB A QN 318 mg/dL Normal 61-437 [facility] Comment on above: Order Comment: N Performed By: #### L 3300.1200, L3600.4030, L3100.3425, L501.6710, L3400.8000, L3410.2350, L101.9900 ####[facility] [address] [place], [address] IMMUNOGLOB G QN 839 mg/dL Normal 603-1613 [facility] Comment on above: Order Comment: N Performed By: #### L 3300.1200, L3600.4030, L3100.3425, L501.6710, L3400.8000, L3410.2350, L101.9900 ####[facility] [address] [place], [address] IMMUNOGLOB M QN 48 mg/dL Normal 20-172 [facility] Comment on above: Order Comment: N Performed By: #### L 3300.1200, L3600.4030, L3100.3425, L501.6710, L3400.8000, L3410.2350, L101.9900 ####[facility] [address] [place], [address] M-Herb Not Observed Normal Not Observed [facility] Comment on above: Order Comment: N Performed By: #### L 3300.1200, L3600.4030, L3100.3425, L501.6710, L3400.8000, L3410.2350, L101.9900 ####[facility] [address] [place], [address] NOTE: Comment Normal . [facility] Comment on above: Order Comment: N Result Comment: Prot ein electrophoresis scan will follow via computer,mail, or hazmat cdl a driver delivery. Performed By: #### L 3300.1200, L3600.4030, L3100.3425, L501.6710, L3400.8000, L3410.2350, L101.9900 ####[facility] [address] [place], [address] Protein [Mass/Vol] 4.1 g/dL Low 6.0-8.5 [facility] Comment on above: Order Comment: N Performed By: #### L 3300.1200, L3600.4030, L3100.3425, L501.6710, L3400.8000, L3410.2350, L101.9900 ####[facility] [address] [place], [address] Immunofixation Urineon 07-07 HELENA Urine Comment Normal . [facility] Comment on above: Result Comment: No m onoclonality detected.Performed at: [facility] [address] [id number] Director: Agustin Arredondo PhD, Phone: [phone] Performed By: #### L 3300.1200, L3600.4030, L3100.3425, L501.6710, L3400.8000, L3410.2350, L101.9900 ####[facility] [address] [place], [address] Quantiferon TB-Gold+on 07-07 QFT MITOGEN JENIFER 2.42 IU/mL Normal . [facility] Comment on above: Performed By: #### L 3300.1200, L3600.4030, L3100.3425, L501.6710, L3400.8000, L3410.2350, L101.9900 ####[facility] [address] [place], [address] QFT NIL VALUE 0.04 IU/mL Normal . [facility] Comment on above: Performed By: #### L 3300.1200, L3600.4030, L3100.3425, L501.6710, L3400.8000, L3410.2350, L101.9900 ####[facility] [address] [place], [address] QFT TB GOLD+ Comment Normal . [facility] Comment on above: Result [...] 3300.1200, L3600.4030, L3100.3425, L501.6710, L3400.8000, L3410.2350, L101.9900 ####[facility] [address] [place], [address] QFT TB POS CRIT Negative Normal Negative [facility] Comment on above: Result [...] 3300.1200, L3600.4030, L3100.3425, L501.6710, L3400.8000, L3410.2350, L101.9900 ####[facility] [address] [place], [place], [id number]) QFT TB1+ AG JENIFER 0.04 IU/mL Normal . [facility] Comment on above: Performed By: #### L 3300.1200, L3600.4030, L3100.3425, L501.6710, L3400.8000, L3410.2350, L101.9900 ####[facility] [address] [place], [address] QFT TB2+ AG JENIFER 0.03 IU/mL Normal . [facility] Comment on above: Performed By: #### L 3300.1200, L3600.4030, L3100.3425, L501.6710, L3400.8000, L3410.2350, L101.9900 ####[facility] [address] [place], [place], [id number] Anion gap in Serum or Plasma Ordered By: Chris Aragon on 07-06-2024 Anion gap [Moles/Vol] 6 mmol/L 06-22 [facility] BUN/creatinine ratioOrdered By: Chris Aragon on 07-06-2024 Urea nitrogen/Creatinine [Mass ratio] 14.9 mg/mg 11-27 [facility] Basic Metabolic Profile (BMP )on 07-06-2024 BUN/CRE 14.9 RATIO Normal 10-20 [facility] Comment on above: Performed By: #### L 500.2500, L100.0500 ####[facility] [address] [place], [address] Calcium [Mass/Vol] 7.8 mg/dL Normal 7.6-11.0 [facility] Comment on above: Performed By: #### L 500.2500, L100.0500 ####[facility] [address] [place], [address] Chloride [Moles/Vol] 102 mmol/L Normal 98-108 [facility] Comment on above: Performed By: #### L 500.2500, L100.0500 ####[facility] [address] [place], [address] CO2 [Moles/Vol] 26.4 mmol/L Normal 21.0-32.0 [facility] Comment on above: Performed By: #### L 500.2500, L100.0500 ####[facility] [address] [place], [address] Creatinine [Mass/Vol] 1.49 mg/dL High 0.70-1.20 [facility] Comment on above: Performed By: #### L 500.2500, L100.0500 ####[facility] [address] [place], [address] ECRCL 48.90 ml/min Low 50-250 [facility] Comment on above: Performed By: #### L 500.2500, L100.0500 ####[facility] [address] [place], [address] GAP 6 Normal 5-15 [facility] Comment on above: Performed By: #### L 500.2500, L100.0500 ####[facility] [address] [place], [address] GFR/1.73 sq M.predicted among non-blacks MDRD (S/P/Bld) [Vol rate/Area] 53 mL/min/{1.73_m2} Low >60 [facility] Comment on above: Result Comment: mL/m in/1.73m2 CKD-EPI Creatinine Equation (2020) Performed By: #### L 500.2500, L100.0500 ####[facility] [address] [place], [address] Glucose [Mass/Vol] 145 mg/dL High 70-99 [facility] Comment on above: Performed By: #### L 500.2500, L100.0500 ####[facility] [address] [place], [address] Potassium [Moles/Vol] 5.1 mmol/L Normal 3.3-5.1 [facility] Comment on above: Performed By: #### L 500.2500, L100.0500 ####[facility] [address] [place], [address] Sodium [Moles/Vol] 135 mmol/L Normal 133-145 [facility] Comment on above: Performed By: #### L 500.2500, L100.0500 ####[facility] [address] [place], [address] Urea nitrogen [Mass/Vol] 22 mg/dL High 4-19 [facility] Comment on above: Performed By: #### L 500.2500, L100.0500 ####[facility] [address] [place], [address] Bedside Glucoseon 07-06-2024 FINGERSTICK GLU 213 mg/dL High 74-106 [facility] Comment on above: Result Comment: DAYANARA MORENO OF PATIENT CARE PER NURSING PROTOCOL Performed By: #### L 501.080 ####[facility] [address] [place], [address] CBC-Complete Blood Cnt No Di ffon 07-06-2024 Erythrocyte distribution width (RBC) [Ratio] 17.2 % High 11.6-14.6 [facility] Comment on above: Performed By: #### L 500.2500, L100.0500 ####[facility] [address] [place], [address] Hematocrit (Bld) [Volume fraction] 25.1 % Low 40-54 [facility] Comment on above: Performed By: #### L 500.2500, L100.0500 ####[facility] [address] [place], [address] Hemoglobin (Bld) [Mass/Vol] 8.3 g/dL Low 13.0-16.5 [facility] Comment on above: Performed By: #### L 500.2500, L100.0500 ####[facility] [address] [place], [address] MCH (RBC) [Entitic mass] 36.2 pg High 27.0-32.0 [facility] Comment on above: Performed By: #### L 500.2500, L100.0500 ####[facility] [address] [place], [address] MCHC (RBC) [Mass/Vol] 33.1 g/dL Normal 32-36 [facility] Comment on above: Performed By: #### L 500.2500, L100.0500 ####[facility] [address] [place], [address] MCV (RBC) [Entitic vol] 109.6 fL High 80-94 [facility] Comment on above: Performed By: #### L 500.2500, L100.0500 ####[facility] [address] [place], [address] Platelet mean volume (Bld) [Entitic vol] 11.2 fL Normal 6.2-12.0 [facility] Comment on above: Performed By: #### L 500.2500, L100.0500 ####[facility] [address] [place], [address] Platelets (Bld) [#/Vol] 127 10*3/uL Low 150-450 [facility] Comment on above: Performed By: #### L 500.2500, L100.0500 ####[facility] [address] [place], [address] RBC (Bld) [#/Vol] 2.29 10*6/uL Low 4.6-6.2 [facility] Comment on above: Performed By: #### L 500.2500, L100.0500 ####[facility] [address] [place], [address] RDW SD 68.8 fl High 35.1-43.9 [facility] Comment on above: Performed By: #### L 500.2500, L100.0500 ####[facility] [address] [place], [address] WBC (Bld) [#/Vol] 3.9 10*3/uL Low 4.4-11.0 [facility] Comment on above: Performed By: #### L 500.2500, L100.0500 ####[facility] [address] [place], [address] Carbon dioxide, total [Moles /volume] in Central venous bloodOrdered By: Chris Aragon on 07-06-2024 CO2 [Moles/Vol] 26.4 mmol/L 21.0-32.0 [facility] Chloride assayOrdered By: Golden Aragon on 07-06-2024 Chloride [Moles/Vol] 102 mmol/L 98-108 [facility] Discharge Instructionon 06-09 Discharge Instruction Normal [facility] Erythrocyte distribution wid th ratioOrdered By: Chris Aragon on 07-06-2024 Erythrocyte distribution width (RBC) [Ratio] 17.2 % High 11.6-14.6 [facility] Erythrocyte distribution wid th standard deviationOrdered By: Chris Aragon on 07-06-2024 Erythrocyte distribution width (RBC) [Ratio] 68.8 fl High 35.1-43.9 [facility] Glomerular filtration rate ( GFR) estimation/1.73 sq m using serum, plasma, or whole bOrdered By: Chris Aragon on 07-06-2024 GFR/1.73 sq M.predicted among non-blacks MDRD (S/P/Bld) [Vol rate/Area] 53 mL/min/{1.73_m2} Low >60 [facility] Gl[facility] deOrdered By: Chris Aragon on 07-06-2024 Glucose [Mass/Vol] 213 mg/dL High 74-106 [facility] Hematocrit Auto (Bld) [Volum e fraction]Ordered By: Chris Aragon on 07-06-2024 Hematocrit (Bld) [Volume fraction] 25.1 % Low 40-54 [facility] Hemoglobin measurementOrdere d By: Chris Aragon on 07-06-2024 Hemoglobin (Bld) [Mass/Vol] 8.3 g/dL Low 13.0-16.5 [facility] MCV (mean corpuscular volume ) determinationOrdered By: Chris Aragon on 07-06-2024 MCV (RBC) [Entitic vol] 109.6 fL High 80-94 [facility] Mean corpuscular hemoglobin (MCH) determinationOrdered By: Chris Aragon on 07-06-2024 MCH (RBC) [Entitic mass] 36.2 pg High 27.0-32.0 [facility] Platelet countOrdered By: Golden Aragon on 07-06-2024 Platelets (Bld) [#/Vol] 127 10*3/uL Low 150-450 [facility] Potassium measurement (mass/ volume)Ordered By: Chris Aragon on 07-06-2024 Potassium (Unsp spec) [Mass/Vol] 5.1 mmol/L 3.3-5.1 [facility] RBC Auto (Bld) [#/Vol]Ordere d By: Chris Aragon on 07-06-2024 RBC (Bld) [#/Vol] 2.29 10*6/uL Low 4.6-6.2 [facility] Serum creatinine measurement (mass/volume)Ordered By: Chris Aragon on 07-06-2024 Creatinine [Mass/Vol] 1.49 mg/dL High 0.70-1.20 [facility] Serum glucose measurement (m ass/volume)Ordered By: Chris Aragon on 07-06-2024 Glucose [Mass/Vol] 145 mg/dL High 70-99 [facility] Serum or plasma calcium luciana urement (mass/volume)Ordered By: Chris Aragon on 07-06-2024 Calcium [Mass/Vol] 7.8 mg/dL 7.6-11.0 [facility] Serum or plasma urea nitroge n measurement (mass/volume)Ordered By: Chris Aragon on 07-06-2024 Urea nitrogen [Mass/Vol] 22 mg/dL High 4-19 [facility] Sodium levelOrdered By: Curly Aragon on 07-06-2024 Sodium [Moles/Vol] 135 mmol/L 133-145 [facility] White blood cell (WBC) count Ordered By: Chris Aragon on 07-06-2024 WBC (Bld) [#/Vol] 3.9 10*3/uL Low 4.4-11.0 [facility] GARETT Comprehensive Panelon ANTI-DNA (DS)AB <1 Normal 0-9 [facility] Comment on above: Result Comment: Nega tive <5 Equivocal 5 - 9 Positive >9 Performed By: #### L 3100.5440 ####[facility] [address] [place], [place], [id number] ANTI-SS-A < 0.2 Normal 0.0-0.9 [facility] Comment on above: Performed By: #### L 3100.5440 ####[facility] [address] [place], [place], [address] ANTI-SS-B < 0.2 Normal 0.0-0.9 [facility] Comment on above: Performed By: #### L 3100.5440 ####[facility] [address] [place], [place], [id number] Anti-Mitochondrial ABon 05- ANTIMITOCHON AB <20.0 Normal 0.0-20.0 [facility] Comment on above: Result Comment: Nega tive 0.0 - 20.0 Equivocal 20.1 - 24.9 Positive >24.9Mitochondrial (M2) Antibodies are found in 90-96% ofpatients with primary biliary cirrhosis.Performed at: [facility] [employer] [id number] Director: Agustin Arredondo PhD, Phone: [phone] Performed By: #### L 800.1280, L451.6206 ####[facility] [address] [place], [address] Anti-Smooth Muscle ABSon ANTISMOOTH MUSC 2 Units Normal 0- [facility] Comment on above: Result Comment: Nega tive 0 - 19 Weak positive 20 - 30 Moderate to strong positive >30 Actin Antibodies are found in 52-85% of patients with autoimmune hepatitis or chronic active hepatitis and in 22% of patients with primary biliary cirrhosis.Performed at: [facility] [employer] [id number] Director: Agustin Arredondo PhD, Phone: [phone] Performed By: #### L 800.1280, L694.5858 ####[facility] [address] [place], [place], [address] Basic Metabolic Profile (BMP )on 07-05-2024 BUN/CRE 13.5 RATIO Normal 10-20 [facility] Comment on above: Performed By: #### L 500.2500 ####[facility] [address] [place], [place], [address] Calcium [Mass/Vol] 7.9 mg/dL Normal 7.6-11.0 [facility] Comment on above: Performed By: #### L 500.2500 ####[facility] [address] [place], [place], [address] Chloride [Moles/Vol] 96 mmol/L Low 98-108 [facility] Comment on above: Performed By: #### L 500.2500 ####[facility] [address] [place], [address] CO2 [Moles/Vol] 28.7 mmol/L Normal 21.0-32.0 [facility] Comment on above: Performed By: #### L 500.2500 ####[facility] [address] [place], [address] Creatinine [Mass/Vol] 1.70 mg/dL High 0.70-1.20 [facility] Comment on above: Performed By: #### L 500.2500 ####[facility] [address] [place], [address] ECRCL 44.02 ml/min Low 50-250 [facility] Comment on above: Performed By: #### L 500.2500 ####[facility] [address] [place], [address] GAP 7 Normal 5-15 [facility] Comment on above: Performed By: #### L 500.2500 ####[facility] [address] [place], [address] GFR/1.73 sq M.predicted among non-blacks MDRD (S/P/Bld) [Vol rate/Area] 45 mL/min/{1.73_m2} Low >60 [facility] Comment on above: Result Comment: mL/m in/1.73m2 CKD-EPI Creatinine Equation (2020) Performed By: #### L 500.2500 ####[facility] [address] [place], [address] Glucose [Mass/Vol] 136 mg/dL High 70-99 [facility] Comment on above: Performed By: #### L 500.2500 ####[facility] [address] [place], [address] Potassium [Moles/Vol] 5.1 mmol/L Normal 3.3-5.1 [facility] Comment on above: Performed By: #### L 500.2500 ####[facility] [address] [place], [address] Sodium [Moles/Vol] 132 mmol/L Low 133-145 [facility] Comment on above: Performed By: #### L 500.2500 ####[facility] [address] [place], [address] Urea nitrogen [Mass/Vol] 23 mg/dL High 4-19 [facility] Comment on above: Performed By: #### L 500.2500 ####[facility] [address] [place], [address] Bedside Glucoseon 07-05-2024 FINGERSTICK GLU 108 mg/dL High 74-106 [facility] Comment on above: Result Comment: DAYANARA GEMENT OF PATIENT CARE PER NURSING PROTOCOL Performed By: #### L 501.080 ####[facility] [address] [place], [address] FINGERSTICK GLU 181 mg/dL High 74-106 [facility] Comment on above: Result Comment: DAYANARA GEMENT OF PATIENT CARE PER NURSING PROTOCOL Performed By: #### L 501.080 ####[facility] [id number] [place], [address] FINGERSTICK GLU 147 mg/dL High 74-106 [facility] Comment on above: Result Comment: DAYANARA GEMENT OF PATIENT CARE PER NURSING PROTOCOL Performed By: #### L 501.080 ####[facility] [id number] [place], [address] FINGERSTICK GLU 210 mg/dL High 74-106 [facility] Comment on above: Result Comment: DAYANARA GEMENT OF PATIENT CARE PER NURSING PROTOCOL Performed By: #### L 501.080 ####[facility] [id number] [place], [address] CBC-Complete Blood Cnt No Di ffon 07-05-2024 Erythrocyte distribution width (RBC) [Ratio] 16.7 % High 11.6-14.6 [facility] Comment on above: Performed By: #### L 100.0500 ####[facility] [address] [place], [address] Hematocrit (Bld) [Volume fraction] 26.7 % Low 40-54 [facility] Comment on above: Performed By: #### L 100.0500 ####[facility] [address] [place], [address] Hemoglobin (Bld) [Mass/Vol] 8.9 g/dL Low 13.0-16.5 [facility] Comment on above: Performed By: #### L 100.0500 ####[facility] [address] [place], [address] MCH (RBC) [Entitic mass] 36.2 pg High 27.0-32.0 [facility] Comment on above: Performed By: #### L 100.0500 ####[facility] [address] [place], [address] MCHC (RBC) [Mass/Vol] 33.3 g/dL Normal 32-36 [facility] Comment on above: Performed By: #### L 100.0500 ####[facility] [address] [place], [address] MCV (RBC) [Entitic vol] 108.5 fL High 80-94 [facility] Comment on above: Performed By: #### L 100.0500 ####[facility] [address] [place], [address] Platelet mean volume (Bld) [Entitic vol] 11.2 fL Normal 6.2-12.0 [facility] Comment on above: Performed By: #### L 100.0500 ####[facility] [address] [place], [address] Platelets (Bld) [#/Vol] 141 10*3/uL Low 150-450 [facility] Comment on above: Performed By: #### L 100.0500 ####[facility] [address] [place], [address] RBC (Bld) [#/Vol] 2.46 10*6/uL Low 4.6-6.2 [facility] Comment on above: Performed By: #### L 100.0500 ####[facility] [address] [place], [address] RDW SD 66.9 fl High 35.1-43.9 [facility] Comment on above: Performed By: #### L 100.0500 ####[facility] [address] [place], [address] WBC (Bld) [#/Vol] 5.3 10*3/uL Normal 4.4-11.0 [facility] Comment on above: Performed By: #### L 100.0500 ####[facility] [address] [place], [address] Calprotectin, Stoolon [address] 91 ug/g Normal 0-120 [facility] Comment on above: Result Comment: Conc entration Interpretation Follow-Up< 5 - 50 ug/g Normal None>50 -120 ug/g Borderline Re-evaluate in 4-6 weeks >120 ug/g Abnormal Repeat as clinically indicatedPerformed at: - [facility] [id number] Director: Karson Lux MD, Phone: [phone] Performed By: #### L 7804.3275, L3882.9993, L3076.9595 ####[facility] [address] [place], [address] Giardia Lamblia, Stool EIAon 07-05-2024 Giardia Stool Negative Normal Negative [facility] Comment on above: Result Comment: Perf ormed at: [facility] [employer]ip[employer] SystemsEric Ville [id number] [place], [place] [id number] Director: Agustin Arredondo PhD, Phone: [phone] Performed By: #### L 7400.3300, L3410.9994, L7000.0700 ####[facility] [address] [place], [place], [address] L3410.9994on 07-05-2024 [facility] Misc. 2 COMMENT Normal . [facility] Comment on above: Order Comment: STOOL [id number] for alpha-1 antitrypsin Result Comment: Perf ormed at: [employer] [id number] Director: Agustin Arredondo PhD, Phone: [phone] Performed By: #### L 7400.3300, L3410.9994, L7000.0700 ####[facility] [address] [place], [address] Activated partial thrombopla stin time (aPTT) in platelet poor plasma by coagulation aOrdered By: Antony Espitia on 07-04-2024 aPTT Coag (PPP) [Time] 28.2 s 24.1-36.2 [facility] Albumin Elph [Mass/Vol]Order ed By: Antony Espitia on 07-04-2024 Albumin [Mass/Vol] 2.1 g/dL Low 2.9-4.4 [facility] Bedside Glucoseon 07-04-2024 FINGERSTICK GLU 184 mg/dL High 74-106 [facility] Comment on above: Result Comment: DAYANARA MORENO OF PATIENT CARE PER NURSING PROTOCOL Performed By: #### L 501.080 ####[facility] [address] [place], [place], [address] FINGERSTICK GLU 319 mg/dL High 74-106 [facility] Comment on above: Result Comment: DAYANARA GEMENT OF PATIENT CARE PER NURSING PROTOCOL Performed By: #### L 501.080 ####[facility] [address] [place], [address] FINGERSTICK GLU 113 mg/dL High 74-106 [facility] Comment on above: Result Comment: DAYANARA GEMENT OF PATIENT CARE PER NURSING PROTOCOL Performed By: #### L 501.080 ####[facility] [address] [place], [address] FINGERSTICK GLU 119 mg/dL High 74-106 [facility] Comment on above: Result Comment: DAYANARA GEMENT OF PATIENT CARE PER NURSING PROTOCOL Performed By: #### L 501.080 ####[facility] [address] [place], [address] Consultation - Cardiologyon 07-04-2024 Consultation - Cardiology Normal [facility] Interpretation of serum or p lasma protein pattern by immunofixation (narrative resultOrdered By: Antony Espitia on 07-04-2024 Protein Fractions Immunofixation Jose Carlos [Interp] Not Observed g/dL Not Observed [facility] No Panel InformationOrdered By: Antony Espitia on 07-04-2024 Addendum Document Comment . [facility] <2 U/mL 0-5 [facility] [employer] 8623on OP Normal [facility] Comment on above: Performed By: #### L 501.9985, L503.6005, L505.5000, M600.5000, L501.5200 ####[facility] [address] [place], [address] Partial Thromboplast Timeon 07-04-2024 aPTT Coag (Bld) [Time] 28.2 s Normal 24.1-36.2 [facility] Comment on above: Performed By: #### L 300.3900, L300.4310 ####[facility] [address] [place], [address] Prothrombin Time w/INRon INR Coag (PPP) [Relative time] 1.2 {INR} Normal [facility] Comment on above: Performed By: #### L 300.3900, L300.4310 ####[facility] [address] [place], [place], [address] PT Coag (PPP) [Time] 15.2 s High 11.7-14.9 [facility] Comment on above: Performed By: #### L 300.3900, L300.4310 ####[facility] [address] [place], [place], [address] Prothrombin timeOrdered By: Antony Espitia on 07-04-2024 PT Coag (PPP) [Time] 15.2 s High 11.7-14.9 [facility] Qualitative QuantiFERON-TB g old in tube testOrdered By: Antony Espitia on 07-04-2024 M. tuberculosis tuberculin stim IFN-g Ql (Bld) 0.04 IU/mL . [facility] Serum DNA double strand anti body assay (units/volume)Ordered By: Antony Espitia on 07-04-2024 DNA double strand Ab Qn (S) [IU]/mL 0-9 [facility] Serum Scl-70 antibody assay (units/volume)Ordered By: Antony Espitia on 07-04-2024 SCL-70 extractable nuclear Ab Qn (S) <0.2 AI 0.0-0.9 [facility] Serum classic neutrophil cyt oplasmic antibody assay (units/volume)Ordered By: Antony Espitia on 07-04-2024 Neutrophil cytoplasmic Ab.classic Qn (S) <1:20 titer Neg:<1:20 [facility] Serum globulin measurement ( mass/volume)Ordered By: Antony Espitia on 07-04-2024 Globulin (S) [Mass/Vol] 2.0 g/dL Low 2.2-3.9 [facility] Serum mitochondria antibody detectionOrdered By: Antony Espitia on 07-04-2024 Mitochondria Ab Ql (S) <20.0 Units 0.0-20.0 [facility] Serum or plasma IgA measurem ent (mass/volume)Ordered By: Antony Espitia on 07-04-2024 IgA [Mass/Vol] 318 mg/dL 61-437 [facility] Serum or plasma IgG measurem ent (mass/volume)Ordered By: Antony Espitia on 07-04-2024 IgG [Mass/Vol] 839 mg/dL 603-1613 [facility] Serum or plasma actin IgG an tibody assay (units/volume)Ordered By: Antony Espitia on 07-04-2024 Actin IgG Qn 2 Units 0-19 [facility] Serum or plasma alpha 1 glob ulin measurement by electrophoresis (mass/volume)Ordered By: Antony Espitia on 07-04-2024 Alpha 1 globulin Elph [Mass/Vol] 0.2 g/dL 0.0-0.4 [facility] Alpha 1 globulin Elph [Mass/Vol] 0.4 g/dL 0.4-1.0 [facility] Serum or plasma beta globuli n measurement by electrophoresis (mass/volume)Ordered By: Antony Espitia on 07-04-2024 Beta globulin Elph [Mass/Vol] 0.7 g/dL 0.7-1.3 [facility] Serum or plasma gamma globul in measurement by electrophoresis (mass/volume)Ordered By: Antony Espitia on 07-04-2024 Gamma globulin Elph [Mass/Vol] 0.7 g/dL 0.4-1.8 [facility] Serum or plasma immunoelectr ophoresis interpretation (nominal result)Ordered By: Antony Espitia on 07-04-2024 Interpretation IEP [Interp] Comment . [facility] Serum or plasma protein luciana urement (mass/volume)Ordered By: Antony Espitia on 07-04-2024 Protein [Mass/Vol] 4.1 g/dL Low 6.0-8.5 [facility] Serum perinuclear neutrophil cytoplasmic antibody titer by immunofluorescenceOrdered By: Antony Espitia on 07-04-2024 Neutrophil cytoplasmic Ab.perinuclear IF (S) [Titer] <1:20 titer Neg:<1:20 [facility] Serum tissue transglutaminas e (tTG) IgA antibody assay (units/volume)Ordered By: Antony Espitia on 07-04-2024 tTG IgA Qn (S) <2 U/mL 0-3 [facility] Basic Metabolic Profile (BMP )on 07-03-2024 BUN/CRE 13.1 RATIO Normal 10-20 [facility] Comment on above: Performed By: #### L 100.0500, L500.2500, L501.5200, L501.2300 ####[facility] [address] [place], [address] Calcium [Mass/Vol] 7.4 mg/dL Low 7.6-11.0 [facility] Comment on above: Performed By: #### L 100.0500, L500.2500, L501.5200, L501.2300 ####[facility] [address] [place], [address] Chloride [Moles/Vol] 103 mmol/L Normal 98-108 [facility] Comment on above: Performed By: #### L 100.0500, L500.2500, L501.5200, L501.2300 ####[facility] [address] [place], [address] CO2 [Moles/Vol] 28.0 mmol/L Normal 21.0-32.0 [facility] Comment on above: Performed By: #### L 100.0500, L500.2500, L501.5200, L501.2300 ####[facility] [address] [place], [address] Creatinine [Mass/Vol] 1.15 mg/dL Normal 0.70-1.20 [facility] Comment on above: Performed By: #### L 100.0500, L500.2500, L501.5200, L501.2300 ####[facility] [address] [place], [address] ECRCL 68.03 ml/min Normal 50-250 [facility] Comment on above: Performed By: #### L 100.0500, L500.2500, L501.5200, L501.2300 ####[facility] [address] [place], [address] GAP 6 Normal 5-15 [facility] Comment on above: Performed By: #### L 100.0500, L500.2500, L501.5200, L501.2300 ####[facility] [address] [place], [address] GFR/1.73 sq M.predicted among non-blacks MDRD (S/P/Bld) [Vol rate/Area] 72 mL/min/{1.73_m2} Normal >60 [facility] Comment on above: Result Comment: mL/m in/1.73m2 CKD-EPI Creatinine Equation (2020) Performed By: #### L 100.0500, L500.2500, L501.5200, L501.2300 ####[facility] [address] [place], [address] Glucose [Mass/Vol] 54 mg/dL Low 70-99 [facility] Comment on above: Performed By: #### L 100.0500, L500.2500, L501.5200, L501.2300 ####[facility] [address] [place], [address] Potassium [Moles/Vol] 4.0 mmol/L Normal 3.3-5.1 [facility] Comment on above: Performed By: #### L 100.0500, L500.2500, L501.5200, L501.2300 ####[facility] [address] [place], [address] Sodium [Moles/Vol] 137 mmol/L Normal 133-145 [facility] Comment on above: Performed By: #### L 100.0500, L500.2500, L501.5200, L501.2300 ####[facility] [address] [place], [address] Urea nitrogen [Mass/Vol] 15 mg/dL Normal 4-19 [facility] Comment on above: Performed By: #### L 100.0500, L500.2500, L501.5200, L501.2300 ####[facility] [address] [place], [address] Bedside Glucoseon 07-03-2024 FINGERSTICK GLU 174 mg/dL High 74-106 [facility] Comment on above: Result Comment: DAYANARA GEMENT OF PATIENT CARE PER NURSING PROTOCOL Performed By: #### L 501.080 ####[facility] [address] [place], [address] FINGERSTICK GLU 170 mg/dL High 74-106 [facility] Comment on above: Result Comment: DAYANARA GEMENT OF PATIENT CARE PER NURSING PROTOCOL Performed By: #### L 501.080 ####[facility] [address] [place], [address] FINGERSTICK GLU 120 mg/dL High 74-106 [facility] Comment on above: Result Comment: DAYANARA GEMENT OF PATIENT CARE PER NURSING PROTOCOL Performed By: #### L 501.080 ####[facility] [address] [place], [address] FINGERSTICK GLU 128 mg/dL High 74-106 [facility] Comment on above: Result Comment: DAYANARA GEMENT OF PATIENT CARE PER NURSING PROTOCOL Performed By: #### L 501.080 ####[facility] [address] [place], [address] CBC-Complete Blood Cnt No Di ffon 07-03-2024 Erythrocyte distribution width (RBC) [Ratio] 16.9 % High 11.6-14.6 [facility] Comment on above: Performed By: #### L 100.0500, L500.2500, L501.5200, L501.2300 ####[facility] [address] [place], [address] Hematocrit (Bld) [Volume fraction] 24.2 % Low 40-54 [facility] Comment on above: Performed By: #### L 100.0500, L500.2500, L501.5200, L501.2300 ####[facility] [address] [place], [address] Hemoglobin (Bld) [Mass/Vol] 8.0 g/dL Low 13.0-16.5 [facility] Comment on above: Performed By: #### L 100.0500, L500.2500, L501.5200, L501.2300 ####[facility] [address] [place], [address] MCH (RBC) [Entitic mass] 35.9 pg High 27.0-32.0 [facility] Comment on above: Performed By: #### L 100.0500, L500.2500, L501.5200, L501.2300 ####[facility] [address] [place], [address] MCHC (RBC) [Mass/Vol] 33.1 g/dL Normal 32-36 [facility] Comment on above: Performed By: #### L 100.0500, L500.2500, L501.5200, L501.2300 ####[facility] [address] [place], [address] MCV (RBC) [Entitic vol] 108.5 fL High 80-94 [facility] Comment on above: Performed By: #### L 100.0500, L500.2500, L501.5200, L501.2300 ####[facility] [address] [place], [address] Platelet mean volume (Bld) [Entitic vol] 10.8 fL Normal 6.2-12.0 [facility] Comment on above: Performed By: #### L 100.0500, L500.2500, L501.5200, L501.2300 ####[facility] [address] [place], [address] Platelets (Bld) [#/Vol] 107 10*3/uL Low 150-450 [facility] Comment on above: Performed By: #### L 100.0500, L500.2500, L501.5200, L501.2300 ####[facility] [address] [place], [address] RBC (Bld) [#/Vol] 2.23 10*6/uL Low 4.6-6.2 [facility] Comment on above: Performed By: #### L 100.0500, L500.2500, L501.5200, L501.2300 ####[facility] [address] [place], [address] RDW SD 66.8 fl High 35.1-43.9 [facility] Comment on above: Performed By: #### L 100.0500, L500.2500, L501.5200, L501.2300 ####[facility] [address] [place], [address] WBC (Bld) [#/Vol] 4.3 10*3/uL Low 4.4-11.0 [facility] Comment on above: Performed By: #### L 100.0500, L500.2500, L501.5200, L501.2300 ####[facility] [address] [place], [address] CRPon 07-03-2024 C-REACTIVE PROT < 3.00 Normal 0.0-3.0 [facility] Comment on above: Performed By: #### L 3300.1200, L3600.4030, L3100.3425, L501.6710, L3400.8000, L3410.2350, L101.9900 ####[facility] [address] [place], [place], [address] Calprotectin stoolOrdered By : Antony Espitia on 07-03-2024 Calprotectin stool 91 ug/g 0-120 [facility] Echocardiogram study reportO rdered By: Yaneli Carbone on 07-03-2024 Study report [facility] Work Phone: Erythrocyte Sed Rateon 07-03 SED RATE < 1 Normal 0-20 [facility] Comment on above: Performed By: #### L 3300.1200, L3600.4030, L3100.3425, L501.6710, L3400.8000, L3410.2350, L101.9900 ####[facility] [address] [place], [place], [address] Erythrocyte sedimentation ra teOrdered By: Antony Espitia on 07-03-2024 ESR (Bld) [Velocity] mm/h 0-20 [facility] Giardia lamblia ag stool EIA Ordered By: Antony Espitia on 07-03-2024 G. lamblia Ag IA Ql (Stl) Negative Negative [facility] HIVon 07-03-2024 HIV Non-Reactive Normal Nonreactive [facility] Comment on above: Result Comment: Non- ReactiveReactiveRepeatedly reactive samples must be confirmed according [facility] recommended confirmatory algorithms. The subresults foreither HIVAG or AHIV can be used as an aid in the selectionof the confirmation algorithm for reactive samples.Send out specimens with Reactive results to [facility] forconfirmation.Order the HIV antibody detection and differentiation:lc#[id number] Performed By: #### L 3890.6006 ####[facility] [address] [place], [place], [address] LDHon 07-03-2024 LDH 415 U/L High 87-241 [facility] Comment on above: Performed By: #### L 504.2610 ####[facility] [address] [place], [place], [id number] MR/CON.PCM.GIon 07-03-2024 MR/CON.PCM.GI Normal [facility] Magnesiumon 07-03-2024 Magnesium [Mass/Vol] 1.8 mg/dL Normal 1.5-2.2 [facility] Comment on above: Performed By: #### L 100.0500, L500.2500, L501.5200, L501.2300 ####[facility] [address] [place], [address] Magnesium measurement (mass/ volume)Ordered By: Melonie De La Rosa on 07-03-2024 Magnesium (Unsp spec) [Mass/Vol] 1.8 mg/dL 1.5-2.2 [facility] No Panel InformationOrdered By: Antony Espitia on 07-03-2024 Non-Reactive Nonreactive [facility] Phosphoruson 07-03-2024 Phosphate [Mass/Vol] 3.2 mg/dL Normal 2.7-4.5 [facility] Comment on above: Performed By: #### L 100.0500, L500.2500, L501.5200, L501.2300 ####[facility] [address] [place], [address] Serum or plasma C reactive p rotein measurement (mass/volume)Ordered By: Antony Espitia on 07-03-2024 CRP [Mass/Vol] mg/L 0.0-3.0 [facility] Bedside Glucoseon 07-02-2024 FINGERSTICK GLU 218 mg/dL High 74-106 [facility] Comment on above: Result Comment: DAYANARA GEMENT OF PATIENT CARE PER NURSING PROTOCOL Performed By: #### L 501.080 ####[facility] [address] [place], [address] FINGERSTICK GLU 174 mg/dL High 74-106 [facility] Comment on above: Result Comment: DAYAANRA GEMENT OF PATIENT CARE PER NURSING PROTOCOL Performed By: #### L 501.080 ####[facility] [address] [place], [address] FINGERSTICK GLU 107 mg/dL High 74-106 [facility] Comment on above: Result Comment: DAYANARA GEMENT OF PATIENT CARE PER NURSING PROTOCOL Performed By: #### L 501.080 ####[facility] [address] [place], [address] FINGERSTICK GLU 66 mg/dL Low 74-106 [facility] Comment on above: Result Comment: DAYANARA GEMENT OF PATIENT CARE PER NURSING PROTOCOL Performed By: #### L 501.080 ####[facility] [address] [place], [address] FINGERSTICK GLU 116 mg/dL High 74-106 [facility] Comment on above: Result Comment: DAYANARA GEMENT OF PATIENT CARE PER NURSING PROTOCOL Performed By: #### L 501.080 ####[facility] [address] [place], [address] Bilirubin, totalOrdered By: Melonie De La Rosa on 07-02-2024 Bilirubin [Mass/Vol] 0.29 mg/dL 0.00-1.30 [facility] Blood manual differential co mment interpretation (narrative result)Ordered By: Melonie De La Rosa on 07-02-2024 Manual differential comment Jose Carlos (Bld) [Interp] See comment [facility] CBC-Complete Blood Cnt No Di ffon 07-02-2024 Erythrocyte distribution width (RBC) [Ratio] 16.7 % High 11.6-14.6 [facility] Comment on above: Performed By: #### L 100.4500, L100.0500 ####[facility] [address] [place], [address] Hematocrit (Bld) [Volume fraction] 22.5 % Low 40-54 [facility] Comment on above: Performed By: #### L 100.4500, L100.0500 ####[facility] [address] [place], [address] Hemoglobin (Bld) [Mass/Vol] 7.5 g/dL Low 13.0-16.5 [facility] Comment on above: Performed By: #### L 100.4500, L100.0500 ####[facility] [address] [place], [address] MCH (RBC) [Entitic mass] 36.4 pg High 27.0-32.0 [facility] Comment on above: Performed By: #### L 100.4500, L100.0500 ####[facility] [address] [place], [address] MCHC (RBC) [Mass/Vol] 33.3 g/dL Normal 32-36 [facility] Comment on above: Performed By: #### L 100.4500, L100.0500 ####[facility] [address] [place], [address] MCV (RBC) [Entitic vol] 109.2 fL High 80-94 [facility] Comment on above: Performed By: #### L 100.4500, L100.0500 ####[facility] [address] [place], [address] Platelet mean volume (Bld) [Entitic vol] 12.5 fL High 6.2-12.0 [facility] Comment on above: Performed By: #### L 100.4500, L100.0500 ####[facility] [address] [place], [address] Platelets (Bld) [#/Vol] 132 10*3/uL Low 150-450 [facility] Comment on above: Performed By: #### L 100.4500, L100.0500 ####[facility] [address] [place], [address] RBC (Bld) [#/Vol] 2.06 10*6/uL Low 4.6-6.2 [facility] Comment on above: Performed By: #### L 100.4500, L100.0500 ####[facility] [address] [place], [address] RDW SD 67.2 fl High 35.1-43.9 [facility] Comment on above: Performed By: #### L 100.4500, L100.0500 ####[facility] [address] [place], [address] WBC (Bld) [#/Vol] 4.0 10*3/uL Low 4.4-11.0 [facility] Comment on above: Performed By: #### L 100.4500, L100.0500 ####[facility] [address] [place], [address] Comprehensive Metabolic Prof ilon 07-02-2024 Albumin [Mass/Vol] 2.3 g/dL Low 3.4-4.8 [facility] Comment on above: Order Comment: REDRA W. PREVIOUS SPECIMEN REJECTED DUE TOHEMOLYSIS. 07/02/2417 Jamari Aguayo. Performed By: #### L 501.2300, L500.4050, L501.5200 ####[facility] [address] [place], [address] Albumin/Globulin [Mass ratio] 1.2 {ratio} Normal 0.9-2.4 [facility] Comment on above: Order Comment: REDRA W. PREVIOUS SPECIMEN REJECTED DUE TOHEMOLYSIS. 07/02/2417 Jamari Aguayo. Performed By: #### L 501.2300, L500.4050, L501.5200 ####[facility] [address] [place], [address] ALK PHOS 101 U/L Normal 40-129 [facility] Comment on above: Order Comment: REDRA W. PREVIOUS SPECIMEN REJECTED DUE TOHEMOLYSIS. 07/02/2417 Jamari Aguayo. Performed By: #### L 501.2300, L500.4050, L501.5200 ####[facility] [address] [place], [address] ALT [Catalytic activity/Vol] 26 U/L Normal <=46 [facility] Comment on above: Order Comment: REDRA W. PREVIOUS SPECIMEN REJECTED DUE TOHEMOLYSIS. 07/02/24516 Jamari Aguayo. Performed By: #### L 501.2300, L500.4050, L501.5200 ####[facility] [address] [place], [address] AST [Catalytic activity/Vol] 54 U/L High <=37 [facility] Comment on above: Order Comment: REDRA W. PREVIOUS SPECIMEN REJECTED DUE TOHEMOLYSIS. 07/02/24516 Jamari Aguayo. Performed By: #### L 501.2300, L500.4050, L501.5200 ####[facility] [address] [place], [address] Bilirubin [Mass/Vol] 0.29 mg/dL Normal 0.00-1.30 [facility] Comment on above: Order Comment: REDRA W. PREVIOUS SPECIMEN REJECTED DUE TOHEMOLYSIS. 07/02/24516 Jamari Aguayo. Performed By: #### L 501.2300, L500.4050, L501.5200 ####[facility] [address] [place], [address] BUN/CRE 8.9 RATIO Low 10-20 [facility] Comment on above: Order Comment: REDRA W. PREVIOUS SPECIMEN REJECTED DUE TOHEMOLYSIS. 07/02/24516 Jamari Aguayo. Performed By: #### L 501.2300, L500.4050, L501.5200 ####[facility] [address] [place], [address] Calcium [Mass/Vol] 7.7 mg/dL Normal 7.6-11.0 [facility] Comment on above: Order Comment: REDRA W. PREVIOUS SPECIMEN REJECTED DUE TOHEMOLYSIS. 07/02/24516 Jamari Aguayo. Performed By: #### L 501.2300, L500.4050, L501.5200 ####[facility] [address] [place], [address] Chloride [Moles/Vol] 108 mmol/L Normal 98-108 [facility] Comment on above: Order Comment: REDRA W. PREVIOUS SPECIMEN REJECTED DUE TOHEMOLYSIS. 07/02/24516 Jamari Aguayo. Performed By: #### L 501.2300, L500.4050, L501.5200 ####[facility] [address] [place], [address] CO2 [Moles/Vol] 26.7 mmol/L Normal 21.0-32.0 [facility] Comment on above: Order Comment: REDRA W. PREVIOUS SPECIMEN REJECTED DUE TOHEMOLYSIS. 07/02/24516 Jamari Aguayo. Performed By: #### L 501.2300, L500.4050, L501.5200 ####[facility] [address] [place], [address] Creatinine [Mass/Vol] 1.22 mg/dL High 0.70-1.20 [facility] Comment on above: Order Comment: REDRA W. PREVIOUS SPECIMEN REJECTED DUE TOHEMOLYSIS. 07/02/24516 Jamari Aguayo. Performed By: #### L 501.2300, L500.4050, L501.5200 ####[facility] [address] [place], [address] ECRCL 65.56 ml/min Normal 50-250 [facility] Comment on above: Order Comment: REDRA W. PREVIOUS SPECIMEN REJECTED DUE TOHEMOLYSIS. 07/02/24516 Jamari Aguayo. Performed By: #### L 501.2300, L500.4050, L501.5200 ####[facility] [address] [place], [address] GAP 7 Normal 5-15 [facility] Comment on above: Order Comment: REDRA W. PREVIOUS SPECIMEN REJECTED DUE TOHEMOLYSIS. 07/02/24516 Jamari Aguayo. Performed By: #### L 501.2300, L500.4050, L501.5200 ####[facility] [address] [place], [address] GFR/1.73 sq M.predicted among non-blacks MDRD (S/P/Bld) [Vol rate/Area] 67 mL/min/{1.73_m2} Normal >60 [facility] Comment on above: Order Comment: REDRA W. PREVIOUS SPECIMEN REJECTED DUE TOHEMOLYSIS. 07/02/24516 Jamari Aguayo. Result Comment: mL/m in/1.73m2 CKD-EPI Creatinine Equation (2020) Performed By: #### L 501.2300, L500.4050, L501.5200 ####[facility] [address] [place], [address] Globulin (S) [Mass/Vol] 2.0 g/dL Low 2.2-4.2 [facility] Comment on above: Order Comment: REDRA W. PREVIOUS SPECIMEN REJECTED DUE TOHEMOLYSIS. 07/02/24516 Jamari Aguayo. Performed By: #### L 501.2300, L500.4050, L501.5200 ####[facility] [address] [place], [address] Glucose [Mass/Vol] 57 mg/dL Low 70-99 [facility] Comment on above: Order Comment: REDRA W. PREVIOUS SPECIMEN REJECTED DUE TOHEMOLYSIS. 07/02/2417 Jamari Aguayo. Performed By: #### L 501.2300, L500.4050, L501.5200 ####[facility] [address] [place], [address] Potassium [Moles/Vol] 4.1 mmol/L Normal 3.3-5.1 [facility] Comment on above: Order Comment: REDRA W. PREVIOUS SPECIMEN REJECTED DUE TOHEMOLYSIS. 07/02/24516 Jamari Aguayo. Performed By: #### L 501.2300, L500.4050, L501.5200 ####[facility] [address] [place], [address] Sodium [Moles/Vol] 141 mmol/L Normal 133-145 [facility] Comment on above: Order Comment: REDRA W. PREVIOUS SPECIMEN REJECTED DUE TOHEMOLYSIS. 07/02/24516 Jamari Aguayo. Performed By: #### L 501.2300, L500.4050, L501.5200 ####[facility] [address] [place], [address] T PROT 4.3 g/dL Low 5.9-8.4 [facility] Comment on above: Order Comment: REDRA W. PREVIOUS SPECIMEN REJECTED DUE TOHEMOLYSIS. 07/02/24516 Jamari Aguayo. Performed By: #### L 501.2300, L500.4050, L501.5200 ####[facility] [address] [place], [address] Urea nitrogen [Mass/Vol] 11 mg/dL Normal 4-19 [facility] Comment on above: Order Comment: REDRA W. PREVIOUS SPECIMEN REJECTED DUE TOHEMOLYSIS. 07/02/24516 Jamari Aguayo. Performed By: #### L 501.2300, L500.4050, L501.5200 ####[facility] [address] [place], [address] ALB Normal 3.4-4.8 [facility] Comment on above: Result Comment: This specimen has been REJECTED due to Laboratory criteria:Hemolyzed.Candida Duke has been notified of need of recollection.07/02/24515 Jamari Aguayo Performed By: #### L 501.2300, L500.4050, L501.5200 ####[facility] [address] [place], [address] ALK PHOS Normal 40-129 [facility] Comment on above: Result Comment: This specimen has been REJECTED due to Laboratory criteria:Hemolyzed.Candidacullen Duke has been notified of need of recollection.07/02/24515 Jamari Callahan White Performed By: #### L 501.2300, L500.4050, L501.5200 ####[facility] [address] [place], [address] ALT Normal <=46 [facility] Comment on above: Result Comment: This specimen has been REJECTED due to Laboratory criteria:Hemolyzed.Candidacullen Duke has been notified of need of recollection.07/02/24515 Jamari Callahan White Performed By: #### L 501.2300, L500.4050, L501.5200 ####[facility] [address] [place], [address] AST Normal <=37 [facility] Comment on above: Result Comment: This specimen has been REJECTED due to Laboratory criteria:Hemolyzed.Candida Duke has been notified of need of recollection.07/02/24515 Jamari Callahan White Performed By: #### L 501.2300, L500.4050, L501.5200 ####[facility] [address] [place], [address] BUN Normal 4-19 [facility] Comment on above: Result Comment: This specimen has been REJECTED due to Laboratory criteria:Hemolyzed.Candida Duke has been notified of need of recollection.07/02/24515 Jamari L White Performed By: #### L 501.2300, L500.4050, L501.5200 ####[facility] [address] [place], [address] BUN/CRE Normal 10-20 [facility] Comment on above: Result Comment: This specimen has been REJECTED due to Laboratory criteria:Hemolyzed.Candida Duke has been notified of need of recollection.07/02/24515 Jamari L White Performed By: #### L 501.2300, L500.4050, L501.5200 ####[facility] [address] [place], [address] Calcium Normal 7.6-11.0 [facility] Comment on above: Result Comment: This specimen has been REJECTED due to Laboratory criteria:Hemolyzed.Candida Duke has been notified of need of recollection.07/02/24515 Jamari L White Performed By: #### L 501.2300, L500.4050, L501.5200 ####[facility] [address] [place], [address] CL Normal 98-108 [facility] Comment on above: Result Comment: This specimen has been REJECTED due to Laboratory criteria:Hemolyzed.Candida Duke has been notified of need of recollection.07/02/24515 Jamari L White Performed By: #### L 501.2300, L500.4050, L501.5200 ####[facility] [address] [place], [address] CO2 Normal 21.0-32.0 [facility] Comment on above: Result Comment: This specimen has been REJECTED due to Laboratory criteria:Hemolyzed.Candida Duke has been notified of need of recollection.07/02/24515 Jamari L White Performed By: #### L 501.2300, L500.4050, L501.5200 ####[facility] [address] [place], [address] CREAT,SERUM Normal 0.70-1.20 [facility] Comment on above: Result Comment: This specimen has been REJECTED due to Laboratory criteria:Hemolyzed.Candida Duke has been notified of need of recollection.07/02/24515 Jamari L White Performed By: #### L 501.2300, L500.4050, L501.5200 ####[facility] [address] [place], [address] eGFR Normal >60 [facility] Comment on above: Result Comment: This specimen has been REJECTED due to Laboratory criteria:Hemolyzed.Candida Duke has been notified of need of recollection.07/02/24515 Jamari L White Performed By: #### L 501.2300, L500.4050, L501.5200 ####[facility] [address] [place], [address] GAP Normal 5-15 [facility] Comment on above: Result Comment: This specimen has been REJECTED due to Laboratory criteria:Hemolyzed.Candidacullen Duke has been notified of need of recollection.07/02/24515 Jamari L White Performed By: #### L 501.2300, L500.4050, L501.5200 ####[facility] [address] [place], [address] GLU Normal 70-99 [facility] Comment on above: Result Comment: This specimen has been REJECTED due to Laboratory criteria:Hemolyzed.Candida Duke has been notified of need of recollection.07/02/24515 Jamari L White Performed By: #### L 501.2300, L500.4050, L501.5200 ####[facility] [address] [place], [address] Potassium Normal 3.3-5.1 [facility] Comment on above: Result Comment: This specimen has been REJECTED due to Laboratory criteria:Hemolyzed.Candida Duke has been notified of need of recollection.07/02/24515 Jamari L White Performed By: #### L 501.2300, L500.4050, L501.5200 ####[facility] [address] [place], [address] T BILI Normal 0.00-1.30 [facility] Comment on above: Result Comment: This specimen has been REJECTED due to Laboratory criteria:Hemolyzed.Candida Duke has been notified of need of recollection.07/02/24515 Jamari L White Performed By: #### L 501.2300, L500.4050, L501.5200 ####[facility] [address] [place], [address] T PROT Normal 5.9-8.4 [facility] Comment on above: Result Comment: This specimen has been REJECTED due to Laboratory criteria:Hemolyzed.Candida Duke has been notified of need of recollection.07/02/24 0516 Jamari Callahan White Performed By: #### L 501.2300, L500.4050, L501.5200 ####[facility] [address] [place], [address] Comprehensive Metabolic Profil Normal 133-145 [facility] Comment on above: Result Comment: This specimen has been REJECTED due to Laboratory criteria:Hemolyzed.Candida Duke has been notified of need of recollection.07/02/2416 Jamari Callahan White Performed By: #### L 501.2300, L500.4050, L501.5200 ####[facility] [address] [place], [address] Culture, Anaerobic Any Sourc chase 07-02-2024 CUAN No growth in 5 days. Normal [facility] Comment on above: Performed By: #### M 100.2000, M100.2900, M100.4001 ####[facility] [address] [place], [address] Differential Commenton 07-02 SMEAR COMMENT Normal [facility] Comment on above: Result Comment: 2+ A NISOCYTOSIS1+ OVALOCYTES1+ SHISTOCYTESRARE ACANTHOCYTESSLIGHT DECREASE PLATELETS Performed By: #### L 100.4500, L100.0500 ####[facility] [address] [place], [address] Magnesiumon 07-02-2024 Magnesium [Mass/Vol] 1.8 mg/dL Normal 1.5-2.2 [facility] Comment on above: Order Comment: REDRA W. PREVIOUS SPECIMEN REJECTED DUE TOHEMOLYSIS. 07/02/24516 Jamari Aguayo. Performed By: #### L 501.2300, L500.4050, L501.5200 ####[facility] [address] [place], [address] Magnesium [Mass/Vol] 1.8 mg/dL Normal 1.5-2.2 [facility] Comment on above: Order Comment: This specimen has been REJECTED due to Laboratory criteria:Hemolyzed.Candida Duke has been notified of need of recollection.07/02/24515 Jamari Aguayo Result Comment: This specimen has been REJECTED due to Laboratory criteria:Hemolyzed.Candida Duke has been notified of need of recollection.07/02/24515 Jamari Aguayo Performed By: #### L 501.2300, L500.4050, L501.5200 ####[facility] [address] [place], [address] No Panel InformationOrdered By: Melonie De La Rosa on 07-02-2024 54 U/L High <38 [facility] Phosphoruson 07-02-2024 Phosphate [Mass/Vol] 2.4 mg/dL Low 2.7-4.5 [facility] Comment on above: Order Comment: RED W. PREVIOUS SPECIMEN REJECTED DUE TOHEMOLYSIS. 07/02/24516 Jamari Aguayo. Performed By: #### L 501.2300, L500.4050, L501.5200 ####[facility] [address] [place], [address] Phosphate [Mass/Vol] 2.7 mg/dL Normal 2.7-4.5 [facility] Comment on above: Order Comment: This specimen has been REJECTED due to Laboratory criteria:Hemolyzed.Candida Duke has been notified of need of recollection.07/02/24515 Jamari Aguayo Result Comment: This specimen has been REJECTED due to Laboratory criteria:Hemolyzed.Candida Duke has been notified of need of recollection.07/02/24515 Jamari Aguayo Performed By: #### L 501.2300, L500.4050, L501.5200 ####[facility] [address] [place], [address] Serum globulin measurementOr dered By: Melonie De La Rosa on 07-02-2024 Globulin (S) [Mass/Vol] 2.0 g/dL Low 2.2-4.2 [facility] Serum or plasma alanine padilla otransferase (ALT) measurementOrdered By: Melonie De La Rosa on 07-02-2024 ALT [Catalytic activity/Vol] 26 U/L <47 [facility] Serum or plasma albumin luciana urement (mass/volume)Ordered By: Melonie De La Rosa on 07-02-2024 Albumin [Mass/Vol] 2.3 g/dL Low 3.4-4.8 [facility] Serum or plasma albumin/glob ulin mass ratioOrdered By: Melonie De La Rosa on 07-02-2024 Albumin/Globulin [Mass ratio] 1.2 {ratio} 0.9-2.4 [facility] Serum or plasma alkaline nolan sphatase measurementOrdered By: Melonie De La Rosa on 07-02-2024 ALP [Catalytic activity/Vol] 101 U/L 40-129 [facility] Total proteinOrdered By: Shira De La Rosa on 07-02-2024 Protein [Mass/Vol] 4.3 g/dL Low 5.9-8.4 [facility] Absolute lymphocyte countOrd ered By: Conrado Fraser on 07-01-2024 Lymphocytes Auto (Unsp spec) [#/Vol] 0.93 10*3/uL 0.83-4.51 [facility] Automated lymphocyte count a s percentage of total leukocytesOrdered By: Conrado Fraser on 07-01-2024 Lymphocytes/100 WBC Auto (Unsp spec) 19.3 % 19-41 [facility] Basophil percentageOrdered B y: Conrado Fraser on 07-01-2024 Basophils/100 WBC (Bld) 0.8 % 0-1 [facility] Bedside Glucoseon 07-01-2024 FINGERSTICK GLU 158 mg/dL High 74-106 [facility] Comment on above: Result Comment: DAYANARA MORENO OF PATIENT CARE PER NURSING PROTOCOL Performed By: #### L 501.080 ####[facility] [address] [place], [address] FINGERSTICK GLU 237 mg/dL High 74-106 [facility] Comment on above: Result Comment: DAYANARA GEMENT OF PATIENT CARE PER NURSING PROTOCOL Performed By: #### L 501.080 ####[facility] [address] [place], [address] FINGERSTICK GLU 114 mg/dL High 74-106 [facility] Comment on above: Result Comment: DAYANARA GEMENT OF PATIENT CARE PER NURSING PROTOCOL Performed By: #### L 501.080 ####[facility] [address] [place], [address] FINGERSTICK GLU 238 mg/dL High 74-106 [facility] Comment on above: Result Comment: DAYANARA GEMENT OF PATIENT CARE PER NURSING PROTOCOL Performed By: #### L 501.080 ####[facility] [address] [place], [address] CBC W/Diff, Automatedon - Anisocytosis Ql (Bld) 1+ Normal [facility] Comment on above: Performed By: #### L 100.0100, L501.2300, L500.4050 ####[facility] [address] [place], [address] MACROCYTOSIS 1+ Normal [facility] Comment on above: Performed By: #### L 100.0100, L501.2300, L500.4050 ####[facility] [address] [place], [address] SMEAR COMMENT SCANNED Normal [facility] Comment on above: Performed By: #### L 100.0100, L501.2300, L500.4050 ####[facility] [address] [place], [address] Comprehensive Metabolic Prof ilon 07-01-2024 GAP 7 Normal 5-15 [facility] Comment on above: Performed By: #### L 100.0100, L501.2300, L500.4050 ####[facility] [address] [place], [address] Albumin [Mass/Vol] 2.4 g/dL Low 3.4-4.8 [facility] Comment on above: Performed By: #### L 100.0100, L501.2300, L500.4050 ####[facility] [address] [place], [address] Albumin/Globulin [Mass ratio] 1.3 {ratio} Normal 0.9-2.4 [facility] Comment on above: Performed By: #### L 100.0100, L501.2300, L500.4050 ####[facility] [address] [place], [address] ALK PHOS 87 U/L Normal 40-129 [facility] Comment on above: Performed By: #### L 100.0100, L501.2300, L500.4050 ####[facility] [address] [place], [address] ALT [Catalytic activity/Vol] 25 U/L Normal <=46 [facility] Comment on above: Performed By: #### L 100.0100, L501.2300, L500.4050 ####[facility] [address] [place], [address] AST [Catalytic activity/Vol] 43 U/L High <=37 [facility] Comment on above: Performed By: #### L 100.0100, L501.2300, L500.4050 ####[facility] [address] [place], [address] Bilirubin [Mass/Vol] 0.36 mg/dL Normal 0.00-1.30 [facility] Comment on above: Performed By: #### L 100.0100, L501.2300, L500.4050 ####[facility] [address] [place], [address] BUN/CRE 8.0 RATIO Low 10-20 [facility] Comment on above: Performed By: #### L 100.0100, L501.2300, L500.4050 ####[facility] [address] [place], [address] Calcium [Mass/Vol] 7.7 mg/dL Normal 7.6-11.0 [facility] Comment on above: Performed By: #### L 100.0100, L501.2300, L500.4050 ####[facility] [address] [place], [address] Chloride [Moles/Vol] 103 mmol/L Normal 98-108 [facility] Comment on above: Performed By: #### L 100.0100, L501.2300, L500.4050 ####[facility] [address] [place], [address] CO2 [Moles/Vol] 25.9 mmol/L Normal 21.0-32.0 [facility] Comment on above: Performed By: #### L 100.0100, L501.2300, L500.4050 ####[facility] [address] [place], [address] Creatinine [Mass/Vol] 1.28 mg/dL High 0.70-1.20 [facility] Comment on above: Performed By: #### L 100.0100, L501.2300, L500.4050 ####[facility] [address] [place], [address] ECRCL 64.55 ml/min Normal 50-250 [facility] Comment on above: Performed By: #### L 100.0100, L501.2300, L500.4050 ####[facility] [address] [place], [address] GFR/1.73 sq M.predicted among non-blacks MDRD (S/P/Bld) [Vol rate/Area] 64 mL/min/{1.73_m2} Normal >60 [facility] Comment on above: Result Comment: mL/m in/1.73m2 CKD-EPI Creatinine Equation (2020) Performed By: #### L 100.0100, L501.2300, L500.4050 ####[facility] [address] [place], [address] Globulin (S) [Mass/Vol] 1.9 g/dL Low 2.2-4.2 [facility] Comment on above: Performed By: #### L 100.0100, L501.2300, L500.4050 ####[facility] [address] [place], [address] Glucose [Mass/Vol] 256 mg/dL High 70-99 [facility] Comment on above: Performed By: #### L 100.0100, L501.2300, L500.4050 ####[facility] [address] [place], [address] Potassium [Moles/Vol] 4.2 mmol/L Normal 3.3-5.1 [facility] Comment on above: Performed By: #### L 100.0100, L501.2300, L500.4050 ####[facility] [address] [place], [address] Sodium [Moles/Vol] 136 mmol/L Normal 133-145 [facility] Comment on above: Performed By: #### L 100.0100, L501.2300, L500.4050 ####[facility] [address] [place], [address] T PROT 4.4 g/dL Low 5.9-8.4 [facility] Comment on above: Performed By: #### L 100.0100, L501.2300, L500.4050 ####[facility] [address] [place], [address] Urea nitrogen [Mass/Vol] 10 mg/dL Normal 4-19 [facility] Comment on above: Performed By: #### L 100.0100, L501.2300, L500.4050 ####[facility] [address] [place], [address] Echo Completeon 07-01-2024 Echo Complete Normal [facility] Eosinophil percentageOrdered By: Conrado Fraser on 07-01-2024 Eosinophils/100 WBC (Bld) 1.0 % 0-5 [facility] Immature granulocytes/100 WB C Auto (Bld)Ordered By: Conrado Fraser on 07-01-2024 Immature granulocytes/100 WBC (Bld) 0.200 % 0.0-0.9 [facility] L499.0043on 07-01-2024 Trop T High Sen 97 ng/L Invalid Interpretation Code <=22 [facility] Comment on above: Result Comment: Crit ical Result(s) Called at 0152: by:??NBURNS TO EAFFOLTERResults read back by same. Performed By: #### L 499.0043 ####[facility] [address] [place], [address] Macrocytes detectionOrdered By: Conrado Fraser on 07-01-2024 Macrocytes Ql (Bld) 1+ [facility] Monocyte percentageOrdered B y: Conrado Fraser on 07-01-2024 Monocytes/100 WBC (Bld) 9.8 % 0-10 [facility] Neutrophil percentageOrdered By: Conrado Fraser on 07-01-2024 Neutrophils/100 WBC (Bld) 68.9 % 47-70 [facility] No Panel InformationOrdered By: Conrado Fraser on 07-01-2024 1+ [facility] Operative Reporton Operative Report Normal [facility] Phosphoruson 07-01-2024 Phosphate [Mass/Vol] 3.1 mg/dL Normal 2.7-4.5 [facility] Comment on above: Performed By: #### L 100.0100, L501.2300, L500.4050 ####[facility] [address] [place], [place], [id number] Troponin T.cardiac [Mass/vol ume] in Serum or Plasma by High sensitivity methodOrdered By: Conrado Fraser on 07-01-2024 Troponin T.cardiac High sensitivity method [Mass/Vol] 97 ng/L High <22 [facility] Abdomen/Pelvis W IV Cont ONL Yon 06-30-2024 Abdomen/Pelvis W IV Cont ONLY Normal [facility] Alcohol, Blood (Medical)-Ser umon 06-30-2024 SERUM ETOH < 10.1 Normal <=10.0 [facility] Comment on above: Result Comment: This test is for medical purposes only. The legaldefinition of intoxication varies according to local law. Performed By: #### L 500.3400, L100.0100, L503.6005, L501.2450, L500.2500, L300.3900, L300.4310, L501.9100 ####[facility] [address] [place], [address] Basic Metabolic Profile (BMP )on 06-30-2024 BUN/CRE 7.7 RATIO Low 10-20 [facility] Comment on above: Performed By: #### L 500.3400, L100.0100, L503.6005, L501.2450, L500.2500, L300.3900, L300.4310, L501.9100 ####[facility] [address] [place], [address] Calcium [Mass/Vol] 8.2 mg/dL Normal 7.6-11.0 [facility] Comment on above: Performed By: #### L 500.3400, L100.0100, L503.6005, L501.2450, L500.2500, L300.3900, L300.4310, L501.9100 ####[facility] [address] [place], [address] Chloride [Moles/Vol] 101 mmol/L Normal 98-108 [facility] Comment on above: Performed By: #### L 500.3400, L100.0100, L503.6005, L501.2450, L500.2500, L300.3900, L300.4310, L501.9100 ####[facility] [address] [place], [address] CO2 [Moles/Vol] 24.7 mmol/L Normal 21.0-32.0 [facility] Comment on above: Performed By: #### L 500.3400, L100.0100, L503.6005, L501.2450, L500.2500, L300.3900, L300.4310, L501.9100 ####[facility] [address] [place], [address] Creatinine [Mass/Vol] 1.41 mg/dL High 0.70-1.20 [facility] Comment on above: Performed By: #### L 500.3400, L100.0100, L503.6005, L501.2450, L500.2500, L300.3900, L300.4310, L501.9100 ####[facility] [address] [place], [address] ECRCL 58.60 ml/min Normal 50-250 [facility] Comment on above: Performed By: #### L 500.3400, L100.0100, L503.6005, L501.2450, L500.2500, L300.3900, L300.4310, L501.9100 ####[facility] [address] [place], [address] GAP 9 Normal 5-15 [facility] Comment on above: Performed By: #### L 500.3400, L100.0100, L503.6005, L501.2450, L500.2500, L300.3900, L300.4310, L501.9100 ####[facility] [address] [place], [address] GFR/1.73 sq M.predicted among non-blacks MDRD (S/P/Bld) [Vol rate/Area] 57 mL/min/{1.73_m2} Low >60 [facility] Comment on above: Result Comment: mL/m in/1.73m2 CKD-EPI Creatinine Equation (2020) Performed By: #### L 500.3400, L100.0100, L503.6005, L501.2450, L500.2500, L300.3900, L300.4310, L501.9100 ####[facility] [address] [place], [address] Glucose [Mass/Vol] 159 mg/dL High 70-99 [facility] Comment on above: Performed By: #### L 500.3400, L100.0100, L503.6005, L501.2450, L500.2500, L300.3900, L300.4310, L501.9100 ####[facility] [address] [place], [address] Potassium [Moles/Vol] 4.2 mmol/L Normal 3.3-5.1 [facility] Comment on above: Performed By: #### L 500.3400, L100.0100, L503.6005, L501.2450, L500.2500, L300.3900, L300.4310, L501.9100 ####[facility] [address] [place], [address] Sodium [Moles/Vol] 135 mmol/L Normal 133-145 [facility] Comment on above: Performed By: #### L 500.3400, L100.0100, L503.6005, L501.2450, L500.2500, L300.3900, L300.4310, L501.9100 ####[facility] [address] [place], [place], [address] Urea nitrogen [Mass/Vol] 11 mg/dL Normal 4-19 [facility] Comment on above: Performed By: #### L 500.3400, L100.0100, L503.6005, L501.2450, L500.2500, L300.3900, L300.4310, L501.9100 ####[facility] [address] [place], [place], [address] Bedside Glucoseon 06-30-2024 FINGERSTICK GLU 123 mg/dL High 74-106 [facility] Comment on above: Result Comment: DAYANARA MORENO OF PATIENT CARE PER NURSING PROTOCOL Performed By: #### L 501.080 ####[facility] [address] [place], [place], [address] Bilirubin Test strip Ql (U)O rdered By: Narendra Gonzalez on 06-30-2024 Bilirubin Ql (U) 1 mg/dL High Negative [facility] Bilirubin directOrdered By: Narendra Gonzalez on 06-30-2024 Bilirubin.direct [Mass/Vol] 0.27 mg/dL 0.00-0.30 [facility] Blood polychromasia detectio n by light microscopyOrdered By: Narendra Gonzalez on 06-30-2024 Polychromasia LM Ql (Bld) 2+ [facility] CBC W/Diff, Automatedon 06-09 Anisocytosis Ql (Bld) 2+ Normal [facility] Comment on above: Performed By: #### L 500.3400, L100.0100, L503.6005, L501.2450, L500.2500, L300.3900, L300.4310, L501.9100 ####[facility] [address] [place], [address] POLYCHROMASIA 2+ Normal [facility] Comment on above: Performed By: #### L 500.3400, L100.0100, L503.6005, L501.2450, L500.2500, L300.3900, L300.4310, L501.9100 ####[facility] [address] [place], [address] CO2 (BldV) [Moles/Vol]Ordere d By: Conrado Fraser on 06-30-2024 CO2 [Moles/Vol] 29 mmol/L [facility] Chest 1 View (Portable)on Chest 1 View (Portable) Normal [facility] Emergency Department Summary on 06-30-2024 Emergency Department Summary Normal [facility] H AND P Exam - Hospitaliston 06-30-2024 H&P Exam - Hospitalist Normal [facility] Ketones Test strip Ql (U)Ord ered By: Narendra Gonzalez on 06-30-2024 Ketones Ql (U) 5 mg/dl High Negative [facility] L499.0042on 06-30-2024 Trop T High Sen 98 ng/L Invalid Interpretation Code <=22 [facility] Comment on above: Result Comment: Crit ical Result(s) Called at: 2337 by:??MATTHEW FLETCHER. Results read back by same. Performed By: #### L 499.0042 ####[facility] [address] [place], [address] L501.4021on 06-30-2024 Trop T High Sen 93 ng/L Invalid Interpretation Code <=22 [facility] Comment on above: Order Comment: PT RE FUSED A PHLEBOTOMY DRAW. ONLY WOULD LET NURSE DRAW FROM LINE. Result Comment: Crit ical Result(s) Called at: 2144 by: SYD OVIEDO??Results read back by same. Performed By: #### L 501.4021 ####[facility] [address] [place], [place], [address] L503.7505on 06-30-2024 Natriuretic peptide B (Bld) [Mass/Vol] 98300 pg/mL High <=900 [facility] Comment on above: Result Comment: Hear t Failure Unlikely: < 300 pg/mLHeart Failure Likely< 50 Years: > 450 pg/mL50-75 Years: > 900 pg/mL>75 Years: > 1800 pg/mL Performed By: #### L 503.7503 ####[facility] [address] [place], [place], [address] Lactic Acidon 06-30-2024 Lactate [Moles/Vol] 1.4 mmol/L Normal 0.0-2.0 [facility] Comment on above: Order Comment: Y Performed By: #### L 500.3400, L100.0100, L503.6005, L501.2450, L500.2500, L300.3900, L300.4310, L501.9100 ####[facility] [address] [place], [place], [address] Lipaseon 06-30-2024 Lipase [Catalytic activity/Vol] 6 U/L Low 13-75 [facility] Comment on above: Result Comment: Mary Anne zamorano note:LIPASE revised reference range effective 22.New Lipase methodology. Expected to produce lower valuesthan the previous assay method.NEW Reference Range: 13 - 75 U/L Performed By: #### L 500.3400, L100.0100, L503.6005, L501.2450, L500.2500, L300.3900, L300.4310, L501.9100 ####[facility] [address] [place], [place], [address] Liver Profileon 06-30-2024 Albumin [Mass/Vol] 2.5 g/dL Low 3.4-4.8 [facility] Comment on above: Performed By: #### L 500.3400, L100.0100, L503.6005, L501.2450, L500.2500, L300.3900, L300.4310, L501.9100 ####[facility] [address] [place], [address] ALK PHOS 117 U/L Normal 40-129 [facility] Comment on above: Performed By: #### L 500.3400, L100.0100, L503.6005, L501.2450, L500.2500, L300.3900, L300.4310, L501.9100 ####[facility] [address] [place], [address] ALT [Catalytic activity/Vol] 34 U/L Normal <=46 [facility] Comment on above: Performed By: #### L 500.3400, L100.0100, L503.6005, L501.2450, L500.2500, L300.3900, L300.4310, L501.9100 ####[facility] [address] [place], [address] AST [Catalytic activity/Vol] 55 U/L High <=37 [facility] Comment on above: Performed By: #### L 500.3400, L100.0100, L503.6005, L501.2450, L500.2500, L300.3900, L300.4310, L501.9100 ####[facility] [address] [place], [address] Bilirubin [Mass/Vol] 0.45 mg/dL Normal 0.00-1.30 [facility] Comment on above: Performed By: #### L 500.3400, L100.0100, L503.6005, L501.2450, L500.2500, L300.3900, L300.4310, L501.9100 ####[facility] [address] [place], [address] Bilirubin.direct [Mass/Vol] 0.27 mg/dL Normal 0.00-0.30 [facility] Comment on above: Performed By: #### L 500.3400, L100.0100, L503.6005, L501.2450, L500.2500, L300.3900, L300.4310, L501.9100 ####[facility] [address] [place], [address] Globulin (S) [Mass/Vol] 2.6 g/dL Normal 2.2-4.2 [facility] Comment on above: Performed By: #### L 500.3400, L100.0100, L503.6005, L501.2450, L500.2500, L300.3900, L300.4310, L501.9100 ####[facility] [address] [place], [address] T PROT 5.1 g/dL Low 5.9-8.4 [facility] Comment on above: Performed By: #### L 500.3400, L100.0100, L503.6005, L501.2450, L500.2500, L300.3900, L300.4310, L501.9100 ####[facility] [address] [place], [address] Magnesiumon 06-30-2024 Magnesium [Mass/Vol] 1.6 mg/dL Normal 1.5-2.2 [facility] Comment on above: Performed By: #### L 501.5200 ####[facility] [address] [place], [address] Mucus LM Ql (Urine sed)Order ed By: Narendra Gonzalez on 06-30-2024 Mucus Ql (Urine sed) 0 SEEN /hpf [facility] Natriuretic peptide.B prohor irene N-Terminal [Mass/volume] in Serum or PlasmaOrdered By: Conrado Fraser on 06-30-2024 Natriuretic peptide.B prohormone N-Terminal [Mass/Vol] 79942 pg/mL High <900 [facility] Nitrite Test strip Ql (U)Ord ered By: Narendra Gonzalez on 06-30-2024 Nitrite Ql (U) Negative Negative [facility] No Panel InformationOrdered By: Conrado Fraser on 06-30-2024 ROSA [facility] Not entered [facility] Room Air [facility] Partial Thromboplast Timeon 06-30-2024 aPTT Coag (Bld) [Time] 29.0 s Normal 24.1-36.2 [facility] Comment on above: Performed By: #### L 500.3400, L100.0100, L503.6005, L501.2450, L500.2500, L300.3900, L300.4310, L501.9100 ####[facility] [address] [place], [place], [id number] Protein Test strip Ql (U)Ord ered By: Narendra Gonzalez on 06-30-2024 Protein Ql (U) 30 mg/dl High Negative [facility] Prothrombin Time w/INRon INR Coag (PPP) [Relative time] 1.2 {INR} Normal [facility] Comment on above: Performed By: #### L 500.3400, L100.0100, L503.6005, L501.2450, L500.2500, L300.3900, L300.4310, L501.9100 ####[facility] [address] [place], [address] PT Coag (PPP) [Time] 15.9 s High 11.7-14.9 [facility] Comment on above: Performed By: #### L 500.3400, L100.0100, L503.6005, L501.2450, L500.2500, L300.3900, L300.4310, L501.9100 ####[facility] [address] [place], [address] Serum or plasma ethanol luciana urement (mass/volume)Ordered By: Narendra Gonzalez on 06-30-2024 Ethanol [Mass/Vol] mg/dL <10.1 [facility] Squamous epithelial cells de tection in urine sediment by light microscopyOrdered By: Narendra Gonzalez on 06-30-2024 Epithelial cells.squamous LM Ql (Urine sed) 0-5 SEEN /hpf 0-5 [facility] Troponin T.cardiac [Mass/vol ume] in Serum or Plasma by High sensitivity methodOrdered By: Conrado Fraser on 06-30-2024 Troponin T.cardiac High sensitivity method [Mass/Vol] 98 ng/L High <22 [facility] Troponin T.cardiac High sensitivity method [Mass/Vol] 93 ng/L High <22 [facility] Urinalysis, Completeon 06-30 EPI,SQUAMOUS 0-5 SEEN Normal 0-5 [facility] Comment on above: Order Comment: CLEAN CATCH Performed By: #### L 400.0001 ####[facility] [address] [place], [address] RBC 0-5 SEEN Normal 0-5 [facility] Comment on above: Order Comment: CLEAN CATCH Performed By: #### L 400.0001 ####[facility] [address] [place], [address] WBC 0-5 SEEN Normal 0-5 [facility] Comment on above: Order Comment: CLEAN CATCH Performed By: #### L 400.0001 ####[facility] [address] [place], [address] BACTERIA 0 SEEN Normal None Seen [facility] Comment on above: Order Comment: CLEAN CATCH Performed By: #### L 400.0001 ####[facility] [address] [place], [address] Mucus Ql (Urine sed) 0 SEEN Normal [facility] Comment on above: Order Comment: CLEAN CATCH Performed By: #### L 400.0001 ####[facility] [address] [place], [address] Urine clarityOrdered By: Abrahan Gonzalez on 06-30-2024 Clarity (U) Sl. Cloudy Clear [facility] Urine color determinationOrd ered By: Narendra Gonzalez on 06-30-2024 Color (U) Yellow Yellow [facility] Urine glucose detectionOrder ed By: Narendra Gonzalez on 06-30-2024 Glucose Ql (U) Normal mg/dl Normal [facility] Urine leukocyte esterase det ection by dipstickOrdered By: Narendra Gonzalez on 06-30-2024 Leukocyte esterase Test strip Ql (U) 25 /ul High Negative [facility] Urine pHOrdered By: Narendra velasquez on 06-30-2024 pH (U) 6.0 [pH] 5.0 - 8.0 [facility] Urine sediment bacteria coun t by microscopy (number/high power field)Ordered By: Narendra Gonzalez on 06-30-2024 Bacteria LM.HPF (Urine sed) [#/Area] 0 /[HPF] None Seen [facility] Urine specific gravity measu rementOrdered By: Narendra Gonzalez on 06-30-2024 Specific gravity (U) [Rel density] 1.020 1.002-1.030 [facility] Urine urobilinogen measureme ntOrdered By: Narendra Gonzalez on 06-30-2024 Urobilinogen Ql (U) Normal mg/dl Normal [facility] Venous Blood Gason Blood Gas Type ROSA Normal [facility] Comment on above: Performed By: #### L 9000.0810 ####[facility] [address] [facility] [address] CO2 [Moles/Vol] 29 mmol/L Normal - [facility] Comment on above: Performed By: #### L 9000.0810 ####[facility] [address] [place], [address] HCO3 (Bld) [Moles/Vol] 28 mmol/L High - [facility] Comment on above: Performed By: #### L 9000.0810 ####[facility] [address] [place], [address] O2 Delivery Dev Room Air Normal [facility] Comment on above: Performed By: #### L 9000.0810 ####[facility] [address] [place], [address] SITE Not entered Normal [facility] Comment on above: Performed By: #### L 9000.0810 ####[facility] [address] [place], [address] VBG BE 2 mmol/L Normal -1.0-3.5 [facility] Comment on above: Performed By: #### L 9000.0810 ####[facility] [address] [place], [address] VBG pCO2 51.8 mmHg High 41-51 [facility] Comment on above: Performed By: #### L 9000.0810 ####[facility] [address] [place], [place], [address] VBG pH 7.34 Normal 7.32-7.42 [facility] Comment on above: Performed By: #### L 9000.0810 ####[facility] [address] [place], [place], [address] VBG PO2 24 mmHg Low 25-40 [facility] Comment on above: Performed By: #### L 9000.0810 ####[facility] [address] [place], [address] VBG SO2 37 Low 50-70 [facility] Comment on above: Performed By: #### L 9000.0810 ####[facility] [address] [place], [address] Venous blood base excess mine surementOrdered By: Conrado Fraser on 06-30-2024 Base excess Calc (BldV) [Moles/Vol] 2 mmol/L -1.0-3.5 [facility] Venous blood bicarbonate mine surementOrdered By: Conrado Fraser on 06-30-2024 HCO3 (Bld) [Moles/Vol] 28 mmol/L High 22-26 [facility] Venous blood pH measurementO rdered By: Conrado Fraser on 06-30-2024 pH (BldV) 7.34 [pH] 7.32-7.42 [facility] Venous blood partial pressur e of carbon dioxide measurementOrdered By: Conrado Fraser on 06-30-2024 CO2 (BldV) [Partial pressure] 51.8 mm[Hg] High 41-51 [facility] Venous blood partial pressur e of oxygen measurementOrdered By: Conrado Fraser on 06-30-2024 Oxygen (BldV) [Partial pressure] 24 mm[Hg] Low 25-40 [facility] White blood cell countOrdere d By: Narendra Gonzalez on 06-30-2024 White blood cell count 0-5 SEEN /hpf 0-5 [facility] Absolute lymphocyte countOrd ered By: Melonie De La Rosa on 06-28-2024 Lymphocytes Auto (Unsp spec) [#/Vol] 1.11 10*3/uL 0.83-4.51 [facility] Absolute neutrophil countOrd ered By: Melonie De La Rosa on 06-28-2024 Neutrophils (Bld) [#/Vol] 3.5 10*3/uL 2.0-7.7 [facility] Anion gap in Serum or Plasma Ordered By: Melonie De La Rosa on 06-28-2024 Anion gap [Moles/Vol] 7 mmol/L 5-15 [facility] Automated lymphocyte count a s percentage of total leukocytesOrdered By: Melonie De La Rosa on 06-28-2024 Lymphocytes/100 WBC Auto (Unsp spec) 21.1 % 19-41 [facility] BUN/creatinine ratioOrdered By: Melonie De La Rosa on 06-28-2024 Urea nitrogen/Creatinine [Mass ratio] 7.0 mg/mg Low 10- [facility] Basic Metabolic Profile (BMP )on 06-28-2024 BUN/CRE 7.0 RATIO Low - [facility] Comment on above: Performed By: #### L 500.2500, L100.0100 ####[facility] [address] [place], [address] Calcium [Mass/Vol] 7.7 mg/dL Normal 7.6-11.0 [facility] Comment on above: Performed By: #### L 500.2500, L100.0100 ####[facility] [address] [place], [address] Chloride [Moles/Vol] 107 mmol/L Normal 98-108 [facility] Comment on above: Performed By: #### L 500.2500, L100.0100 ####[facility] [address] [place], [address] CO2 [Moles/Vol] 25.1 mmol/L Normal 21.0-32.0 [facility] Comment on above: Performed By: #### L 500.2500, L100.0100 ####[facility] [address] [place], [address] Creatinine [Mass/Vol] 1.11 mg/dL Normal 0.70-1.20 [facility] Comment on above: Performed By: #### L 500.2500, L100.0100 ####[facility] [address] [place], [address] ECRCL 74.04 ml/min Normal 50-250 [facility] Comment on above: Performed By: #### L 500.2500, L100.0100 ####[facility] [address] [place], [address] GAP 7 Normal 5-15 [facility] Comment on above: Performed By: #### L 500.2500, L100.0100 ####[facility] [address] [place], [address] GFR/1.73 sq M.predicted among non-blacks MDRD (S/P/Bld) [Vol rate/Area] 76 mL/min/{1.73_m2} Normal >60 [facility] Comment on above: Result Comment: mL/m in/1.73m2 CKD-EPI Creatinine Equation (2020) Performed By: #### L 500.2500, L100.0100 ####[facility] [address] [place], [address] Glucose [Mass/Vol] 187 mg/dL High 70-99 [facility] Comment on above: Performed By: #### L 500.2500, L100.0100 ####[facility] [address] [place], [address] Potassium [Moles/Vol] 4.1 mmol/L Normal 3.3-5.1 [facility] Comment on above: Result Comment: Hemo lysis present, Results??could be affected.?? Performed By: #### L 500.2500, L100.0100 ####[facility] [address] [place], [address] Sodium [Moles/Vol] 139 mmol/L Normal 133-145 [facility] Comment on above: Performed By: #### L 500.2500, L100.0100 ####[facility] [address] [place], [address] Urea nitrogen [Mass/Vol] 8 mg/dL Normal 4-19 [facility] Comment on above: Performed By: #### L 500.2500, L100.0100 ####[facility] [address] [place], [address] Basophil percentageOrdered B y: Melonie De La Rosa on 06-28-2024 Basophils/100 WBC (Bld) 0.9 % 0-1 [facility] Bedside Glucoseon 06-28-2024 FINGERSTICK GLU 252 mg/dL High 74-106 [facility] Comment on above: Result Comment: DAYANARA MORENO OF PATIENT CARE PER NURSING PROTOCOL Performed By: #### L 501.080 ####[facility] [address] [place], [address] FINGERSTICK GLU 161 mg/dL High 74-106 [facility] Comment on above: Result Comment: DAYANARA MORENO OF PATIENT CARE PER NURSING PROTOCOL Performed By: #### L 501.080 ####[facility] [address] [place], [address] CBC W/Diff, Automatedon 05-2 Absolute Lymph 1.11 X10 3/uL Normal 0.83-4.51 [facility] Comment on above: Performed By: #### L 500.2500, L100.0100 ####[facility] [address] [place], [address] Absolute Neut 3.5 X10 3/uL Normal 2.0-7.7 [facility] Comment on above: Performed By: #### L 500.2500, L100.0100 ####[facility] [address] [place], [address] Basophils/100 WBC (Bld) 0.9 % Normal 0-1 [facility] Comment on above: Performed By: #### L 500.2500, L100.0100 ####[facility] [address] [place], [address] Eosinophils/100 WBC (Bld) 0.9 % Normal 0-5 [facility] Comment on above: Performed By: #### L 500.2500, L100.0100 ####[facility] [address] [place], [address] Erythrocyte distribution width (RBC) [Ratio] 17.0 % High 11.6-14.6 [facility] Comment on above: Performed By: #### L 500.2500, L100.0100 ####[facility] [address] [place], [address] Hematocrit (Bld) [Volume fraction] 28.9 % Low 40-54 [facility] Comment on above: Performed By: #### L 500.2500, L100.0100 ####[facility] [address] [place], [address] Hemoglobin (Bld) [Mass/Vol] 9.5 g/dL Low 13.0-16.5 [facility] Comment on above: Performed By: #### L 500.2500, L100.0100 ####[facility] [address] [place], [address] IG% 0.400 Normal 0.0-0.9 [facility] Comment on above: Result Comment: IG% - Immature Granulocytes (promyelocytes, myelocytes andmetamyelocytes) > 1% indicates that a LEFT SHIFT is Present. Performed By: #### L 500.2500, L100.0100 ####[facility] [address] [place], [address] Lymphocytes/100 WBC (Bld) 21.1 % Normal 19-41 [facility] Comment on above: Performed By: #### L 500.2500, L100.0100 ####[facility] [address] [place], [address] MCH (RBC) [Entitic mass] 35.7 pg High 27.0-32.0 [facility] Comment on above: Performed By: #### L 500.2500, L100.0100 ####[facility] [address] [place], [address] MCHC (RBC) [Mass/Vol] 32.9 g/dL Normal 32-36 [facility] Comment on above: Performed By: #### L 500.2500, L100.0100 ####[facility] [address] [place], [address] MCV (RBC) [Entitic vol] 108.6 fL High 80-94 [facility] Comment on above: Performed By: #### L 500.2500, L100.0100 ####[facility] [address] [place], [address] Monocytes/100 WBC (Bld) 9.9 % Normal 0-10 [facility] Comment on above: Performed By: #### L 500.2500, L100.0100 ####[facility] [address] [place], [address] Neutrophils/100 WBC (Bld) 66.8 % Normal 47-70 [facility] Comment on above: Performed By: #### L 500.2500, L100.0100 ####[facility] [address] [place], [address] Nucleated RBC (Bld) [#/Vol] 0.4 10*3/uL Normal 0-5 [facility] Comment on above: Performed By: #### L 500.2500, L100.0100 ####[facility] [address] [place], [address] Platelet mean volume (Bld) [Entitic vol] 11.4 fL Normal 6.2-12.0 [facility] Comment on above: Performed By: #### L 500.2500, L100.0100 ####[facility] [address] [place], [address] Platelets (Bld) [#/Vol] 129 10*3/uL Low 150-450 [facility] Comment on above: Performed By: #### L 500.2500, L100.0100 ####[facility] [address] [place], [address] RBC (Bld) [#/Vol] 2.66 10*6/uL Low 4.6-6.2 [facility] Comment on above: Performed By: #### L 500.2500, L100.0100 ####[facility] [address] [place], [address] RDW SD 68.0 fl High 35.1-43.9 [facility] Comment on above: Performed By: #### L 500.2500, L100.0100 ####[facility] [address] [place], [address] WBC (Bld) [#/Vol] 5.3 10*3/uL Normal 4.4-11.0 [facility] Comment on above: Performed By: #### L 500.2500, L100.0100 ####[facility] [address] [place], [address] Carbon dioxide, total [Moles /volume] in Central venous bloodOrdered By: Melonie De La Rosa on 06-28-2024 CO2 [Moles/Vol] 25.1 mmol/L 21.0-32.0 [facility] Chloride assayOrdered By: Anel De La Rosa on 06-28-2024 Chloride [Moles/Vol] 107 mmol/L 98-108 [facility] Eosinophil percentageOrdered By: Melonie De La Rosa on 06-28-2024 Eosinophils/100 WBC (Bld) 0.9 % 0-5 [facility] Erythrocyte distribution wid th ratioOrdered By: Melonie De La Rosa on 06-28-2024 Erythrocyte distribution width (RBC) [Ratio] 17.0 % High 11.6-14.6 [facility] Erythrocyte distribution wid th standard deviationOrdered By: Melonie De La Rosa on 06-28-2024 Erythrocyte distribution width (RBC) [Ratio] 68.0 fl High 35.1-43.9 [facility] Glomerular filtration rate ( GFR) estimation/1.73 sq m using serum, plasma, or whole bOrdered By: Melonie De La Rosa on 06-28-2024 GFR/1.73 sq M.predicted among non-blacks MDRD (S/P/Bld) [Vol rate/Area] 76 mL/min/{1.73_m2} >60 [facility] Comment on above: mL/min/1.73m2 CKD-EP I Creatinine Equation (2020) [facility] deOrdered By: Melonie De La Rosa on 06-28-2024 Glucose [Mass/Vol] 252 mg/dL High 74-106 [facility] Comment on above: MANAGEMENT OF PATIEN T CARE PER NURSING PROTOCOL Hematocrit Auto (Bld) [Volum e fraction]Ordered By: Melonie De La Rosa on 06-28-2024 Hematocrit (Bld) [Volume fraction] 28.9 % Low 40-54 [facility] Hemoglobin measurementOrdere d By: Melonie De La Rosa on 06-28-2024 Hemoglobin (Bld) [Mass/Vol] 9.5 g/dL Low 13.0-16.5 [facility] Immature granulocytes/100 WB C Auto (Bld)Ordered By: Melonie De La Rosa on 06-28-2024 Immature granulocytes/100 WBC (Bld) 0.400 % 0.0-0.9 [facility] Comment on above: IG% - Immature Granu locytes (promyelocytes, myelocytes and metamyelocytes) > 1% indicates that a LEFT SHIFT is Present. MCV (mean corpuscular volume ) determinationOrdered By: Melonie De La Rosa on 06-28-2024 MCV (RBC) [Entitic vol] 108.6 fL High 80-94 [facility] Mean corpuscular hemoglobin (MCH) determinationOrdered By: Melonie De La Rosa on 06-28-2024 MCH (RBC) [Entitic mass] 35.7 pg High 27.0-32.0 [facility] Mean corpuscular hemoglobin concentration (MCHC) determinationOrdered By: Melonie De La Rosa on 06-28-2024 MCHC (RBC) [Mass/Vol] 32.9 g/dL 32-36 [facility] Mean platelet volume determi nationOrdered By: Melonie De La Rosa on 06-28-2024 Platelet mean volume (Bld) [Entitic vol] 11.4 fL 6.2-12.0 [facility] Monocyte percentageOrdered B y: Melonie De La Rosa on 06-28-2024 Monocytes/100 WBC (Bld) 9.9 % 0-10 [facility] Neutrophil percentageOrdered By: Melonie De La Rosa on 06-28-2024 Neutrophils/100 WBC (Bld) 66.8 % 47-70 [facility] Nucleated red blood cell per centageOrdered By: Melonie De La Rosa on 06-28-2024 Nucleated RBC/100 WBC (Bld) [Ratio] 0.4 % 0-5 [facility] Platelet countOrdered By: Anel De La Rosa on 06-28-2024 Platelets (Bld) [#/Vol] 129 10*3/uL Low 150-450 [facility] Potassium measurement (mass/ volume)Ordered By: Melonie De La Rosa on 06-28-2024 Potassium (Unsp spec) [Mass/Vol] 4.1 mmol/L 3.3-5.1 [facility] Comment on above: Hemolysis present, R esults could be affected. RBC Auto (Bld) [#/Vol]Ordere d By: Melonie De La Rosa on 06-28-2024 RBC (Bld) [#/Vol] 2.66 10*6/uL Low 4.6-6.2 [facility] Serum creatinine measurement (mass/volume)Ordered By: Melonie De La Rosa on 06-28-2024 Creatinine [Mass/Vol] 1.11 mg/dL 0.70-1.20 [facility] Serum glucose measurement (m ass/volume)Ordered By: Melonie De La Rosa on 06-28-2024 Glucose [Mass/Vol] 187 mg/dL High 70-99 [facility] Serum or plasma calcium luciana urement (mass/volume)Ordered By: Melonie De La Rosa on 06-28-2024 Calcium [Mass/Vol] 7.7 mg/dL 7.6-11.0 [facility] Serum or plasma urea nitroge n measurement (mass/volume)Ordered By: Melonie De La Rosa on 06-28-2024 Urea nitrogen [Mass/Vol] 8 mg/dL 4-19 [facility] Sodium levelOrdered By: Savannah De La Rosa on 06-28-2024 Sodium [Moles/Vol] 139 mmol/L 133-145 [facility] White blood cell (WBC) count Ordered By: Melonie De La Rosa on 06-28-2024 WBC (Bld) [#/Vol] 5.3 10*3/uL 4.4-11.0 [facility] Activated partial thrombopla stin time (aPTT) in platelet poor plasma by coagulation aOrdered By: Carlos Yanes on 06-27-2024 aPTT Coag (PPP) [Time] 30.2 s 24.1-36.2 [facility] Basic Metabolic Profile (BMP )on 06-27-2024 BUN/CRE 6.6 RATIO Low 10-20 [facility] Comment on above: Performed By: #### L 500.2500, L501.2300, L501.5200 ####[facility] [address] [place], [address] Calcium [Mass/Vol] 7.3 mg/dL Low 7.6-11.0 [facility] Comment on above: Performed By: #### L 500.2500, L501.2300, L501.5200 ####[facility] [address] [place], [address] Chloride [Moles/Vol] 109 mmol/L High 98-108 [facility] Comment on above: Performed By: #### L 500.2500, L501.2300, L501.5200 ####[facility] [address] [place], [address] CO2 [Moles/Vol] 25.2 mmol/L Normal 21.0-32.0 [facility] Comment on above: Performed By: #### L 500.2500, L501.2300, L501.5200 ####[facility] [address] [place], [address] Creatinine [Mass/Vol] 1.07 mg/dL Normal 0.70-1.20 [facility] Comment on above: Performed By: #### L 500.2500, L501.2300, L501.5200 ####[facility] [address] [place], [address] ECRCL 77.11 ml/min Normal 50-250 [facility] Comment on above: Performed By: #### L 500.2500, L501.2300, L501.5200 ####[facility] [address] [place], [address] GAP 8 Normal 5-15 [facility] Comment on above: Performed By: #### L 500.2500, L501.2300, L501.5200 ####[facility] [address] [place], [address] GFR/1.73 sq M.predicted among non-blacks MDRD (S/P/Bld) [Vol rate/Area] 79 mL/min/{1.73_m2} Normal >60 [facility] Comment on above: Result Comment: mL/m in/1.73m2 CKD-EPI Creatinine Equation (2020) Performed By: #### L 500.2500, L501.2300, L501.5200 ####[facility] [address] [place], [address] Glucose [Mass/Vol] 134 mg/dL High 70-99 [facility] Comment on above: Performed By: #### L 500.2500, L501.2300, L501.5200 ####[facility] [address] [place], [address] Potassium [Moles/Vol] 3.5 mmol/L Normal 3.3-5.1 [facility] Comment on above: Performed By: #### L 500.2500, L501.2300, L501.5200 ####[facility] [address] [place], [address] Sodium [Moles/Vol] 142 mmol/L Normal 133-145 [facility] Comment on above: Performed By: #### L 500.2500, L501.2300, L501.5200 ####[facility] [address] [place], [address] Urea nitrogen [Mass/Vol] 7 mg/dL Normal 4-19 [facility] Comment on above: Performed By: #### L 500.2500, L501.2300, L501.5200 ####[facility] [address] [place], [address] Bedside Glucoseon 06-27-2024 FINGERSTICK GLU 216 mg/dL High 74-106 [facility] Comment on above: Result Comment: DAYANARA GEMENT OF PATIENT CARE PER NURSING PROTOCOL Performed By: #### L 501.080 ####[facility] [address] [place], [address] FINGERSTICK GLU 122 mg/dL High [address] [place] [address] Comment on above: Result Comment: DAYANARA GEMENT OF PATIENT CARE PER NURSING PROTOCOL Performed By: #### L 501.080 ####[facility] [address] [place], [address] FINGERSTICK GLU 111 mg/dL High -106 [facility] Comment on above: Result Comment: DAYANARA GEMENT OF PATIENT CARE PER NURSING PROTOCOL Performed By: #### L 501.080 ####[facility] [address] [place], [address] FINGERSTICK GLU 209 mg/dL High [facility]106 [facility] Comment on above: Result Comment: DAYANARA GEMENT OF PATIENT CARE PER NURSING PROTOCOL Performed By: #### L 501.080 ####[facility] [address] [place], [address] FINGERSTICK GLU 131 mg/dL High [address] [place] [address] Comment on above: Result Comment: DAYANARA GEMENT OF PATIENT CARE PER NURSING PROTOCOL Performed By: #### L 501.080 ####[facility] [address] [place], [address] Body Fluid Culton 06-27-2024 BFC Culture exhibits no growth. Normal [facility] Comment on above: Performed By: #### M 100.2000, M100.2900, M100.4001 ####[facility] [address] [place], [address] CBC W/Diff, AutomatedOrdered By: Melonie De La Rosa on 06-27-2024 Anisocytosis Ql (Bld) 1+ Normal [facility] Comment on above: Performed By: #### L 100.0100 ####[facility] [address] [place], [address] EGD Reporton 06-27-2024 EGD Report Normal [facility] Glucose, Body Fluidon 2024 GLUC, BODY FLD 201 mg/dL Normal Not Establ. [facility] Comment on above: Performed By: #### L 503.0100 ####[facility] [address] [place], [address] Gram Stainon 06-27-2024 GS Gram Stain No organisms seen Normal [facility] Comment on above: Performed By: #### M 100.2000, M100.2900, M100.4001 ####[facility] [address] [place], [address] Immunohistochemical Stainson 06-27-2024 Immunohistochemical Stains Normal [facility] Comment on above: Performed By: #### P IMHI ####[facility] [address] [place], [address] International normalized rat io (INR) calculationOrdered By: Carlos Yanes on 06-27-2024 INR Coag (Bld) [Relative time] 1.4 {INR} [facility] MR/POSTOP.ANEon 06-27-2024 MR/POSTOP.ANE Normal [facility] MR/[id number] 06-27-2024 MR/POSTOPAN2 Normal [facility] Magnesiumon 06-27-2024 Magnesium [Mass/Vol] 1.5 mg/dL Normal 1.5-2.2 [facility] Comment on above: Performed By: #### L 500.2500, L501.2300, L501.5200 ####[facility] [address] [place], [address] Magnesium measurement (mass/ volume)Ordered By: Melonie De La Rosa on 06-27-2024 Magnesium (Unsp spec) [Mass/Vol] 1.5 mg/dL 1.5-2.2 [facility] No Panel InformationOrdered By: Melonie De La Rosa on 06-27-2024 1+ [facility] Partial Thromboplast Timeon 06-27-2024 aPTT Coag (Bld) [Time] 30.2 s Normal 24.1-36.2 [facility] Comment on above: Performed By: #### L 300.4310, L300.3900 ####[facility] [address] [place], [address] Phosphoruson 06-27-2024 Phosphate [Mass/Vol] 2.7 mg/dL Normal 2.7-4.5 [facility] Comment on above: Performed By: #### L 500.2500, L501.2300, L501.5200 ####[facility] [address] [place], [address] Protein, Body Fluidon 2024 Protein [Mass/Vol] 0.3 g/dL Normal Not Establ. [facility] Comment on above: Performed By: #### L 503.0300 ####[facility] [address] [place], [address] Prothrombin Time w/INRon INR Coag (PPP) [Relative time] 1.4 {INR} Normal [facility] Comment on above: Performed By: #### L 300.4310, L300.3900 ####[facility] [address] [place], [address] Prothrombin timeOrdered By: Carlos Yanes on 06-27-2024 PT Coag (PPP) [Time] 17.4 s High 11.7-14.9 [facility] Comment on above: Performed By: #### L 300.4310, L300.3900 ####[facility] [address] [place], [address] Anaerobic cultureOrdered By: Melonie De La Rosa on 06-26-2024 Bacteria identified Anaer cx Nom (Unsp spec) No growth in 5 days. [facility] Bedside Glucoseon 06-26-2024 FINGERSTICK GLU 201 mg/dL High 74-106 [facility] Comment on above: Result Comment: DAYANARA GEMENT OF PATIENT CARE PER NURSING PROTOCOL Performed By: #### L 501.080 ####[facility] [address] [facility] [address] FINGERSTICK GLU 138 mg/dL High [address] [facility] Comment on above: Result Comment: DAYANARA GEMENT OF PATIENT CARE PER NURSING PROTOCOL Performed By: #### L 501.080 ####[facility] [address] [facility] [address] FINGERSTICK GLU 172 mg/dL High -106 [facility] Comment on above: Result Comment: DAYANARA GEMENT OF PATIENT CARE PER NURSING PROTOCOL Performed By: #### L 501.080 ####[facility] [address] [facility] [address] FINGERSTICK GLU 197 mg/dL High [address] [place] [address] Comment on above: Result Comment: DAYANARA GEMENT OF PATIENT CARE PER NURSING PROTOCOL Performed By: #### L 501.080 ####[facility] [address] [facility] [address] Bilirubin directOrdered By: Carlos Yanes on 06-26-2024 Bilirubin.direct [Mass/Vol] 0.23 mg/dL 0.00-0.30 [facility] Bilirubin, totalOrdered By: Carlos Yanes on 06-26-2024 Bilirubin [Mass/Vol] 0.42 mg/dL 0.00-1.30 [facility] Body fluid appearance (nomin al result)Ordered By: Melonie De La Rosa on 06-26-2024 Appearance (Body fld) CLEAR [facility] Body fluid color determinati onOrdered By: Melonie De La Rosa on 06-26-2024 Color (Body fld) YELLOW [facility] Body fluid cultureOrdered By : Melonie De La Rosa on 06-26-2024 Microbial culture, body fluid Culture exhibits no growth. [facility] Body fluid leukocytes count (number/volume)Ordered By: Melonie De La Rosa on 06-26-2024 WBC (Body fld) [#/Vol] 0.010 10*3/uL [facility] Body fluid lymphocytes/100 l eukocytesOrdered By: Melonie De La Rosa on 06-26-2024 Lymphocytes/100 WBC (Body fld) 17 % [facility] Body fluid macrophage countO rdered By: Melonie De La Rosa on 06-26-2024 Macrophages (Body fld) [#/Vol] 56 % [facility] Body fluid mesothelial cell percentageOrdered By: Melonie De La Rosa on 06-26-2024 Mesothelial cells/100 WBC (Body fld) 21 % [facility] Body fluid mononuclear cell percentageOrdered By: Melonie De La Rosa on 06-26-2024 Mononuclear cells/100 WBC (Body fld) 90.0 % [facility] Body fluid protein measureme nt (mass/volume)Ordered By: Melonie De La Rosa on 06-26-2024 Protein (Body fld) [Mass/Vol] 0.3 g/dL Not Establ. [facility] Body fluid segmented neutrop hils count (number/volume)Ordered By: Melonie De La Rosa on 06-26-2024 Segmented neutrophils (Body fld) [#/Vol] 6 % [facility] Body fluid total cell countO rdered By: Melonie De La Rosa on 06-26-2024 Cells Counted Total (Body fld) [#] 0.012 10^3/ul [facility] Comment on above: This is the Total Nu mber of Nucleated Cell Types in the Body Fluid. CBC W/Diff, Automatedon 06-08 Absolute Lymph 0.89 X10 3/uL Normal 0.83-4.51 [facility] Comment on above: Performed By: #### L 100.0100, L501.9520, L501.2300, L500.4050, L500.4100 ####[facility] [address] [place], [place], [address] Absolute Neut 3.3 X10 3/uL Normal 2.0-7.7 [facility] Comment on above: Performed By: #### L 100.0100, L501.9520, L501.2300, L500.4050, L500.4100 ####[facility] [address] [place], [address] Basophils/100 WBC (Bld) 0.8 % Normal 0-1 [facility] Comment on above: Performed By: #### L 100.0100, L501.9520, L501.2300, L500.4050, L500.4100 ####[facility] [address] [place], [address] Eosinophils/100 WBC (Bld) 0.4 % Normal 0-5 [facility] Comment on above: Performed By: #### L 100.0100, L501.9520, L501.2300, L500.4050, L500.4100 ####[facility] [address] [place], [address] Erythrocyte distribution width (RBC) [Ratio] 16.3 % High 11.6-14.6 [facility] Comment on above: Performed By: #### L 100.0100, L501.9520, L501.2300, L500.4050, L500.4100 ####[facility] [address] [place], [address] Hematocrit (Bld) [Volume fraction] 27.1 % Low 40-54 [facility] Comment on above: Performed By: #### L 100.0100, L501.9520, L501.2300, L500.4050, L500.4100 ####[facility] [address] [place], [address] Hemoglobin (Bld) [Mass/Vol] 9.3 g/dL Low 13.0-16.5 [facility] Comment on above: Performed By: #### L 100.0100, L501.9520, L501.2300, L500.4050, L500.4100 ####[facility] [address] [place], [address] IG% 0.200 Normal 0.0-0.9 [facility] Comment on above: Result Comment: IG% - Immature Granulocytes (promyelocytes, myelocytes andmetamyelocytes) > 1% indicates that a LEFT SHIFT is Present. Performed By: #### L 100.0100, L501.9520, L501.2300, L500.4050, L500.4100 ####[facility] [address] [place], [address] Lymphocytes/100 WBC (Bld) 18.4 % Low 19-41 [facility] Comment on above: Performed By: #### L 100.0100, L501.9520, L501.2300, L500.4050, L500.4100 ####[facility] [address] [place], [address] MCH (RBC) [Entitic mass] 36.3 pg High 27.0-32.0 [facility] Comment on above: Performed By: #### L 100.0100, L501.9520, L501.2300, L500.4050, L500.4100 ####[facility] [address] [place], [address] MCHC (RBC) [Mass/Vol] 34.3 g/dL Normal 32-36 [facility] Comment on above: Performed By: #### L 100.0100, L501.9520, L501.2300, L500.4050, L500.4100 ####[facility] [address] [place], [address] MCV (RBC) [Entitic vol] 105.9 fL High 80-94 [facility] Comment on above: Performed By: #### L 100.0100, L501.9520, L501.2300, L500.4050, L500.4100 ####[facility] [address] [place], [address] Monocytes/100 WBC (Bld) 11.8 % High 0-10 [facility] Comment on above: Performed By: #### L 100.0100, L501.9520, L501.2300, L500.4050, L500.4100 ####[facility] [address] [place], [address] Neutrophils/100 WBC (Bld) 68.4 % Normal 47-70 [facility] Comment on above: Performed By: #### L 100.0100, L501.9520, L501.2300, L500.4050, L500.4100 ####[facility] [address] [place], [address] Nucleated RBC (Bld) [#/Vol] 0 10*3/uL Normal 0-5 [facility] Comment on above: Performed By: #### L 100.0100, L501.9520, L501.2300, L500.4050, L500.4100 ####[facility] [address] [place], [address] Platelet mean volume (Bld) [Entitic vol] 11.6 fL Normal 6.2-12.0 [facility] Comment on above: Performed By: #### L 100.0100, L501.9520, L501.2300, L500.4050, L500.4100 ####[facility] [address] [place], [address] Platelets (Bld) [#/Vol] 100 10*3/uL Low 150-450 [facility] Comment on above: Performed By: #### L 100.0100, L501.9520, L501.2300, L500.4050, L500.4100 ####[facility] [address] [place], [address] RBC (Bld) [#/Vol] 2.56 10*6/uL Low 4.6-6.2 [facility] Comment on above: Performed By: #### L 100.0100, L501.9520, L501.2300, L500.4050, L500.4100 ####[facility] [address] [place], [address] RDW SD 63.6 fl High 35.1-43.9 [facility] Comment on above: Performed By: #### L 100.0100, L501.9520, L501.2300, L500.4050, L500.4100 ####[facility] [facility] [address] [place], [address] WBC (Bld) [#/Vol] 4.8 10*3/uL Normal 4.4-11.0 [facility] Comment on above: Performed By: #### L 100.0100, L501.9520, L501.2300, L500.4050, L500.4100 ####[facility] [address] [place], [address] CDIFF (PCR)on 06-26-2024 CDIFF Normal [facility] Comment on above: Performed By: #### M 100.6796, M100.637, M100.0605 ####[facility] [address] [place], [address] CNPNon 06-26-2024 CNPN Telephone (AGFAMPLE) ANALILIA MELENDREZ ([id number]) 1960 M Date Time Provider Department 06/26/24 [...] in. Please advise. FLORENTINO Jackson Brittny A, VIRIDIANA.PHYSICAL THERAPIST TECHNICIAN 06/26/2024 9:57 AM Signed Will address in next OV. Allergies As of Date: 06/26/2024 (No Known Allergies) Date Reviewed: 04/12/2024 Reviewed by: Vandana Edwards - Fully Assessed Reason for Visit: Lab Orders [9088] Prescriptions as of 06/26/2024 - UNIFINE PENTIPS [...] fourteen (14) days to upper arm. - gpgnun-ksnjalzs-uptwuow (CREON 36) 36,000-114,000- 180,000 unit delayed release capsule Take 2 pills by mouth with first bite of meal and take 1 pill with snacks. Max 10 per day. - Cholecalciferol, Vitamin D3, (VITAMIN D-3) 50 mcg (2,000 unit) cap Take 1 capsule by mouth once daily. 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 Normal [facility] Calculated very low density lipoprotein (VLDL) cholesterol measurementOrdered By: Conrado Fraser on 06-26-2024 Calculated very low density lipoprotein (VLDL) cholesterol measurement 18 mg/dL 5-40 [facility] Comprehensive Metabolic Prof ilon 06-26-2024 Albumin [Mass/Vol] 2.1 g/dL Low 3.4-4.8 [facility] Comment on above: Performed By: #### L 100.0100, L501.9520, L501.2300, L500.4050, L500.4100 ####[facility] [address] [place], [address] Albumin/Globulin [Mass ratio] 1.0 {ratio} Normal 0.9-2.4 [facility] Comment on above: Performed By: #### L 100.0100, L501.9520, L501.2300, L500.4050, L500.4100 ####[facility] [address] [place], [address] ALK PHOS 102 U/L Normal 40-129 [facility] Comment on above: Performed By: #### L 100.0100, L501.9520, L501.2300, L500.4050, L500.4100 ####[facility] [address] [place], [address] ALT [Catalytic activity/Vol] 26 U/L Normal <=46 [facility] Comment on above: Performed By: #### L 100.0100, L501.9520, L501.2300, L500.4050, L500.4100 ####[facility] [address] [place], [address] AST [Catalytic activity/Vol] 49 U/L High <=37 [facility] Comment on above: Performed By: #### L 100.0100, L501.9520, L501.2300, L500.4050, L500.4100 ####[facility] [address] [place], [address] Bilirubin [Mass/Vol] 0.42 mg/dL Normal 0.00-1.30 [facility] Comment on above: Performed By: #### L 100.0100, L501.9520, L501.2300, L500.4050, L500.4100 ####[facility] [address] [place], [address] BUN/CRE 6.5 RATIO Low 10-20 [facility] Comment on above: Performed By: #### L 100.0100, L501.9520, L501.2300, L500.4050, L500.4100 ####[facility] [address] [place], [address] Calcium [Mass/Vol] 7.1 mg/dL Low 7.6-11.0 [facility] Comment on above: Performed By: #### L 100.0100, L501.9520, L501.2300, L500.4050, L500.4100 ####[facility] [address] [place], [address] Chloride [Moles/Vol] 107 mmol/L Normal 98-108 [facility] Comment on above: Performed By: #### L 100.0100, L501.9520, L501.2300, L500.4050, L500.4100 ####[facility] [address] [place], [address] CO2 [Moles/Vol] 24.9 mmol/L Normal 21.0-32.0 [facility] Comment on above: Performed By: #### L 100.0100, L501.9520, L501.2300, L500.4050, L500.4100 ####[facility] [address] [place], [address] Creatinine [Mass/Vol] 0.97 mg/dL Normal 0.70-1.20 [facility] Comment on above: Performed By: #### L 100.0100, L501.9520, L501.2300, L500.4050, L500.4100 ####[facility] [address] [place], [address] ECRCL 84.27 ml/min Normal 50-250 [facility] Comment on above: Performed By: #### L 100.0100, L501.9520, L501.2300, L500.4050, L500.4100 ####[facility] [address] [place], [address] GAP 10 Normal 5-15 [facility] Comment on above: Performed By: #### L 100.0100, L501.9520, L501.2300, L500.4050, L500.4100 ####[facility] [address] [place], [address] GFR/1.73 sq M.predicted among non-blacks MDRD (S/P/Bld) [Vol rate/Area] 88 mL/min/{1.73_m2} Normal >60 [facility] Comment on above: Result Comment: mL/m in/1.73m2 CKD-EPI Creatinine Equation (2020) Performed By: #### L 100.0100, L501.9520, L501.2300, L500.4050, L500.4100 ####[facility] [address] [place], [address] Globulin (S) [Mass/Vol] 2.1 g/dL Low 2.2-4.2 [facility] Comment on above: Performed By: #### L 100.0100, L501.9520, L501.2300, L500.4050, L500.4100 ####[facility] [address] [place], [address] Glucose [Mass/Vol] 180 mg/dL High 70-99 [facility] Comment on above: Performed By: #### L 100.0100, L501.9520, L501.2300, L500.4050, L500.4100 ####[facility] [address] [place], [address] Potassium [Moles/Vol] 2.7 mmol/L Invalid Interpretation Code 3.3-5.1 [facility] Comment on above: Result Comment: Crit ical Result(s) Called at 0735: by: ESTEFANY GOLDMAN. ??Results read back by same. Performed By: #### L 100.0100, L501.9520, L501.2300, L500.4050, L500.4100 ####[facility] [address] [place], [address] Sodium [Moles/Vol] 142 mmol/L Normal 133-145 [facility] Comment on above: Performed By: #### L 100.0100, L501.9520, L501.2300, L500.4050, L500.4100 ####[facility] [address] [place], [address] T PROT 4.3 g/dL Low 5.9-8.4 [facility] Comment on above: Performed By: #### L 100.0100, L501.9520, L501.2300, L500.4050, L500.4100 ####[facility] [address] [place], [address] Urea nitrogen [Mass/Vol] 6 mg/dL Normal -19 [facility] Comment on above: Performed By: #### L 100.0100, L501.9520, L501.2300, L500.4050, L500.4100 ####[facility] [address] [place], [address] Cytology report of Body flui d Cyto stainOrdered By: Melonie De La Rosa on 06-26-2024 Cytology report Cyto stain Doc (Body fld) SEE PATHOLOGY REPORT [facility] ENTERIC PATHOGEN PANEL STOOL on 06-26-2024 EP PANEL Normal [facility] Comment on above: Performed By: #### M 100.6796, M100.637, M100.0605 ####[facility] [address] [place], [address] Electrocardiogram reportOrde red By: Trung Bob on 06-26-2024 EKG study [facility] [address] [place] [address] 12 Lead EKG 06/25/241934 MR#: [id number] Acct: [id number] Name: ANALILIA MELENDREZ Rep #:[id number] : 1960 63 From: Trung Bob MD Attending Dr: DO Yesi Looney tatus: ADM IN Ordering Dr: Rolan Romero ate: 06/25/24 Location: [facility] Sex: M C Admitted: 06/25/24 Test [...] ECG Confirmed by PAULINO FRANCISCO, TRUNG ([id number]), newspaper editor managing CARLOS ROBLES ([id number]) on 06/26/2024 9:28:17 AM Referred By: Rolan Romero Confirmed By: TRUNG BOB MD 06/26/24 0928 Date _ Trung Bob MD CC: ALAN Wagner; Dr. Rolan Romero DO; Dr. Melonie De La Rosa DO ~ Signed [facility] Work Phone: Gram stainOrdered By: Palak De La Rosa on 06-26-2024 Microscopic observation Gram stain Nom (Unsp spec) [facility] Hemoglobin A1con 06-26-2024 HbA1c (Bld) [Mass fraction] 6.6 % High <=5.6 [facility] Comment on above: Result Comment: Norm al < 5.7 % Prediabetic 5.7 - 6.4 % Diabetic >or= 6.5 % Please note range changes. Performed By: #### L 501.9985, L503.6005, L505.5000, M600.5000, L501.5200 ####[facility] [address] [place], [address] LDL calc ser/plasOrdered By: Conrado Fraser on 06-26-2024 Cholesterol in LDL [Mass/Vol] 24 mg/dL Normal [facility] Comment on above: Nesikybhcq=005-503 m g/dL & Higher Cyri=354 mg/dL or greater Result Comment: Bord iupvvh=181-648 mg/dL Higher Yole=352 mg/dL or greater Performed By: #### L 100.0100, L501.9520, L501.2300, L500.4050, L500.4100 ####[facility] [address] [place], [address] Laboratory - Chemistry and C hemistry - challengeOrdered By: Carlos Yanes on 06-26-2024 AST [Catalytic activity/Vol] 49 U/L High <38 [facility] Lactic Acidon 06-26-2024 Lactate [Moles/Vol] 3.1 mmol/L Invalid Interpretation Code 0.0-2.0 [facility] Comment on above: Result Comment: Crit ical Result(s) Called at 0745: by: ESTEFANY GOLDMAN. ??Results read back by same. Performed By: #### L 503.6005 ####[facility] [address] [place], [address] Lactate [Moles/Vol] 4.7 mmol/L Invalid Interpretation Code 0.0-2.0 [facility] Comment on above: Order Comment: Y Result Comment: Crit ical Result(s) Called at: 06/26/2024-02:50 by: Khushi to Ann-Marie Mckeon.??Results read back by same. Performed By: #### L 501.9985, L503.6005, L505.5000, M600.5000, L501.5200 ####[facility] [address] [place], [address] Lactic acid measurementOrder ed By: Conrado Fraser on 06-26-2024 Lactate [Moles/Vol] 3.1 mmol/L High 0.0-2.0 [facility] Comment on above: Critical Result(s) C alled at 0745: by: ESTEFANY WHITTEN TO [facility]. Results read back by same. Lipid Profileon 06-26-2024 CHOL:HDL 2.29 Normal [facility] Comment on above: Performed By: #### L 100.0100, L501.9520, L501.2300, L500.4050, L500.4100 ####[facility] [address] [place], [address] Cholesterol in VLDL [Mass/Vol] 18 mg/dL Normal 5-40 [facility] Comment on above: Performed By: #### L 100.0100, L501.9520, L501.2300, L500.4050, L500.4100 ####[facility] [address] [place], [address] Liver Profileon 06-26-2024 Albumin [Mass/Vol] 2.0 g/dL Low 3.4-4.8 [facility] Comment on above: Performed By: #### L 500.3400 ####[facility] [address] [place], [address] ALK PHOS 99 U/L Normal 40-129 [facility] Comment on above: Performed By: #### L 500.3400 ####[facility] [address] [place], [address] ALT [Catalytic activity/Vol] 27 U/L Normal <=46 [facility] Comment on above: Performed By: #### L 500.3400 ####[facility] [address] [place], [address] AST [Catalytic activity/Vol] 49 U/L High <=37 [facility] Comment on above: Performed By: #### L 500.3400 ####[facility] [address] [place], [address] Bilirubin [Mass/Vol] 0.42 mg/dL Normal 0.00-1.30 [facility] Comment on above: Performed By: #### L 500.3400 ####[facility] [address] [place], [address] Bilirubin.direct [Mass/Vol] 0.23 mg/dL Normal 0.00-0.30 [facility] Comment on above: Performed By: #### L 500.3400 ####[facility] [address] [place], [address] Globulin (S) [Mass/Vol] 2.2 g/dL Normal 2.2-4.2 [facility] Comment on above: Performed By: #### L 500.3400 ####[facility] [address] [place], [address] T PROT 4.2 g/dL Low 5.9-8.4 [facility] Comment on above: Performed By: #### L 500.3400 ####[facility] [address] [place], [address] MR/CON.PCM.GIon 06-26-2024 MR/CON.PCM.GI Normal [facility] Magnesiumon 06-26-2024 Magnesium [Mass/Vol] 1.8 mg/dL Normal 1.5-2.2 [facility] Comment on above: Performed By: #### L 501.9985, L503.6005, L505.5000, M600.5000, L501.5200 ####[facility] [address] [place], [address] No Panel InformationOrdered By: Melonie De La Rosa on 06-26-2024 Body Fluid Comment 2 SEE COMMENT [facility] Comment on above: .INTERPRETATION OF R ESULTS: Differentiation of transudate and exudate fluid: TRANSUDATE EXUDATE Color- Clear,straw colored Clear,turbid,bloody,purulent RBCs- Usually none to few Often present in high numbers WBCs- Usually none to few Often present in high numbers DIFF Few lymphocytes or Lymphocytes, neutrophils, andCount- mesothelial cells. polymorphonuclear cells . Body Fluid RBC 35 /mm3 [facility] 35 /mm3 [facility] SEE COMMENT [facility] No Panel InformationOrdered By: Carlos Yanes on 06-26-2024 49 U/L High <38 [facility] Paracentesis with USon 06-26 Paracentesis with US Normal [facility] Pathologist interpretation o f Body fluid testsOrdered By: Melonie De La Rosa on 06-26-2024 Pathologist interpretation (Body fld) [Interp] May follow [facility] Pathologist interpretation (Body fld) [Interp] Reviewed [facility] Phosphoruson 06-26-2024 Phosphate [Mass/Vol] 2.3 mg/dL Low 2.7-4.5 [facility] Comment on above: Performed By: #### L 100.0100, L501.9520, L501.2300, L500.4050, L500.4100 ####[facility] [address] [place], [place], [address] Screening total cholesterol/ high density lipoprotein (HDL) cholesterol ratioOrdered By: Conrado Fraser on 06-26-2024 Cholesterol.total/Livia sterol in HDL [Mass ratio] 2.29 {ratio} [facility] Serum globulin measurementOr dered By: Carlos Yanes on 06-26-2024 Globulin (S) [Mass/Vol] 2.2 g/dL 2.2-4.2 [facility] Serum or plasma alanine padilla otransferase (ALT) measurementOrdered By: Carlos Yanes on 06-26-2024 ALT [Catalytic activity/Vol] 27 U/L <47 [facility] Serum or plasma albumin luciana urement (mass/volume)Ordered By: Carlos Yanes on 06-26-2024 Albumin [Mass/Vol] 2.0 g/dL Low 3.4-4.8 [facility] Serum or plasma albumin/glob ulin mass ratioOrdered By: Conrado Fraser on 06-26-2024 Albumin/Globulin [Mass ratio] 1.0 {ratio} 0.9-2.4 [facility] Serum or plasma alkaline nolan sphatase measurementOrdered By: Carlos Yanes on 06-26-2024 ALP [Catalytic activity/Vol] 99 U/L 40-129 [facility] Serum or plasma cholesterol in HDL measurement (mass/volume)Ordered By: Conrado Fraser on 06-26-2024 Cholesterol in HDL [Mass/Vol] 32 mg/dL Low [facility] Comment on above: National Cholesterol [...] #### L 100.0100, L501.9520, L501.2300, L500.4050, L500.4100 ####[facility] [address], [place], [address] Serum or plasma cholesterol measurement (mass/volume)Ordered By: Conrado Fraser on 06-26-2024 Cholesterol [Mass/Vol] 74 mg/dL Normal <=200 [facility] Comment on above: Cholesterol level, D esirable <200 mg/dLBorderline high cholesterol 200-239 mg/dLHigh cholesterol >=240 mg/dLRecommendations of the NCEP Adult Treatment Panel for the following risk-cutoff thresholds for the [place] population. Result Comment: Chol esterol level, Desirable <200 mg/dLBorderline high cholesterol 200-239 mg/dLHigh cholesterol >=240 mg/dLRecommendations of the NCEP Adult Treatment Panel for thefollowing risk-cutoff thresholds for the [place] American[place]. Performed By: #### L 100.0100, L501.9520, L501.2300, L500.4050, L500.4100 ####[facility] [address] [place], [address] Specimen source identificati on of body fluidOrdered By: Melonie De La Rosa on 06-26-2024 Specimen source Nom (Body fld) PARACENTESIS [facility] Stool Lactoferrin/WBCon 06-08 WBCST Is the patient receiving laxatives? N Normal Reference Range = Negative Fecal WBC Lactoferrin Negative: No Fecal WBC Lactoferrin present Normal [facility] Comment on above: Performed By: #### M 100.6796, M100.637, M100.0605 ####[facility] [address] [place], [address] TSH DL <= 0.005 mIU/L QnOrde red By: Conrado Fraser on 06-26-2024 TSH Qn 1.740 uIU/mL 0.300-4.200 [facility] Thyroid Stim Hormone (TSH)on 06-26-2024 TSH 1.740 uIU/mL Normal 0.300-4.200 [facility] Comment on above: Performed By: #### L 100.0100, L501.9520, L501.2300, L500.4050, L500.4100 ####[facility] [address] [place], [place], [address] Total proteinOrdered By: Carlos Yanes on 06-26-2024 Protein [Mass/Vol] 4.2 g/dL Low 5.9-8.4 [facility] Triglycerides measurementOrd ered By: Conrado Fraser on 06-26-2024 Triglyceride [Mass/Vol] 89 mg/dL Normal [facility] Comment on above: The drugs N-Acetylcy steine and Metamizole may falsely depress this assay. Normal range: <150 mg/dLBorderline High: 150-199 mg/dLHigh: 200-499 mg/dLVery High: >500 mg/dL Result Comment: The drugs N-Acetylcysteine and Metamizole may falselydepress this assay.Normal range: <150 mg/dLBorderline High: 150-199 mg/dLHigh: 200-499 mg/dLVery High: >500 mg/dL Performed By: #### L 100.0100, L501.9520, L501.2300, L500.4050, L500.4100 ####[facility] [address] [place], [address] Urine Drug Screen (VISTA)on 06-26-2024 AMPHETAMINES Negative Normal <1000 ng/mL [facility] Comment on above: Performed By: #### L 501.9985, L503.6005, L505.5000, M600.5000, L501.5200 ####[facility] [address] [place], [address] BARBITIURATES Negative Normal < 200 ng/mL [facility] Comment on above: Performed By: #### L 501.9985, L503.6005, L505.5000, M600.5000, L501.5200 ####[facility] [address] [place], [address] BENZODIAZIPINE Negative Normal < 200 ng/mL [facility] Comment on above: Performed By: #### L 501.9985, L503.6005, L505.5000, M600.5000, L501.5200 ####[facility] [address] [place], [address] BUP Ur Drug Scr Negative Normal < 200 ng/mL [facility] Comment on above: Performed By: #### L 501.9985, L503.6005, L505.5000, M600.5000, L501.5200 ####[facility] [address] [place], [address] COCAINE Negative Normal < 300 ng/mL [facility] Comment on above: Performed By: #### L 501.9985, L503.6005, L505.5000, M600.5000, L501.5200 ####[facility] [address] [place], [place], [phone] Fentanyl Negative Normal [facility] Comment on above: Performed By: #### L 501.9985, L503.6005, L505.5000, M600.5000, L501.5200 ####[facility] [address] [place], [place], [phone] METHADONE Negative Normal < 300 ng/mL [facility] Comment on above: Performed By: #### L 501.9985, L503.6005, L505.5000, M600.5000, L501.5200 ####[facility] [address] [place], [place], [phone] OPIATES Negative Normal < 300 ng/mL [facility] Comment on above: Performed By: #### L 501.9985, L503.6005, L505.5000, M600.5000, L501.5200 ####[facility] [address] [place], [phone] OXYCODONE Negative Normal < 100 ng/mL [facility] Comment on above: Performed By: #### L 501.9985, L503.6005, L505.5000, M600.5000, L501.5200 ####[facility] [address] [place], [place], [phone] PCP Negative Normal < 25 ng/mL [facility] Comment on above: Performed By: #### L 501.9985, L503.6005, L505.5000, M600.5000, L501.5200 ####[facility] [address] [place], [address] THC Negative Normal < 50 ng/mL [facility] Comment on above: Performed By: #### L 501.9985, L503.6005, L505.5000, M600.5000, L501.5200 ####[facility] [address] [place], [place], [address] 12 Lead EKGon 06-25-2024 12 Lead EKG Normal [facility] Abdomen/Pelvis W IV Cont ONL Yon 06-25-2024 Abdomen/Pelvis W IV Cont ONLY Normal [facility] Absolute lymphocyte countOrd ered By: Rolan Romero on 06-25-2024 Lymphocytes Auto (Unsp spec) [#/Vol] 1.05 10*3/uL 0.83-4.51 [facility] Absolute neutrophil countOrd ered By: Rolan Romero on 06-25-2024 Neutrophils (Bld) [#/Vol] 3.1 10*3/uL 2.0-7.7 [facility] Alcohol, Blood (Medical)-Ser umon 06-25-2024 SERUM ETOH < 10.1 Normal <=10.0 [facility] Comment on above: Result Comment: This test is for medical purposes only. The legaldefinition of intoxication varies according to local law. Performed By: #### L 501.9100 ####[facility] [address] [place], [place], [address] Amphetamine detection with 1 000 ng/mL as cutoffOrdered By: Conrado Fraser on 06-25-2024 Amphetamines Screen method >1000 ng/mL Ql (U) Negative < 200 ng/mL [facility] Anion gap in Serum or Plasma Ordered By: Rolan Romero on 06-25-2024 Anion gap [Moles/Vol] 16 mmol/L High 5-15 [facility] Automated lymphocyte count a s percentage of total leukocytesOrdered By: Rolan Romero on 06-25-2024 Lymphocytes/100 WBC Auto (Unsp spec) 22.1 % 19-41 [facility] BUN/creatinine ratioOrdered By: Rolan Romero on 06-25-2024 Urea nitrogen/Creatinine [Mass ratio] 6.5 mg/mg Low 10-20 [facility] Basophil percentageOrdered B y: Rolan Romero on 06-25-2024 Basophils/100 WBC (Bld) 0.6 % 0-1 [facility] Bedside Glucoseon 06-25-2024 FINGERSTICK GLU 277 mg/dL High 74-106 [facility] Comment on above: Result Comment: DAYANARA GEMENT OF PATIENT CARE PER NURSING PROTOCOL Performed By: #### L 501.080 ####[facility] [address] [place], [address] FINGERSTICK GLU 348 mg/dL High 74-106 [facility] Comment on above: Result Comment: DAYANARA GEMENT OF PATIENT CARE PER NURSING PROTOCOL Performed By: #### L 501.080 ####[facility] [address] [place], [address] Beta-Hydroxbytyrateon 2024 BETA-HYDROXYBUT 0.1 mmol/L Normal 0.0-0.3 [facility] Comment on above: Performed By: #### L 501.5600, L501.6901, L501.5200 ####[facility] [address] [place], [address] Beta-hydroxybutyrateOrdered By: Rolan Romero on 06-25-2024 Beta hydroxybutyrate [Mass/Vol] 0.1 mmol/L 0.0-0.3 [facility] Bilirubin Test strip Ql (U)O rdered By: Rolan Romero on 06-25-2024 Bilirubin Ql (U) Negative Negative [facility] Bilirubin, totalOrdered By: Rolan Romero on 06-25-2024 Bilirubin [Mass/Vol] 0.46 mg/dL 0.00-1.30 [facility] CBC W/Diff, Automatedon 06-08 Absolute Lymph 1.05 X10 3/uL Normal 0.83-4.51 [facility] Comment on above: Performed By: #### L 100.0100 ####[facility] [address] [place], [address] Absolute Neut 3.1 X10 3/uL Normal 2.0-7.7 [facility] Comment on above: Performed By: #### L 100.0100 ####[facility] [address] [place], [address] Basophils/100 WBC (Bld) 0.6 % Normal 0-1 [facility] Comment on above: Performed By: #### L 100.0100 ####[facility] [address] [place], [address] Eosinophils/100 WBC (Bld) 0.2 % Normal 0-5 [facility] Comment on above: Performed By: #### L 100.0100 ####[facility] [address] [place], [address] Erythrocyte distribution width (RBC) [Ratio] 16.2 % High 11.6-14.6 [facility] Comment on above: Performed By: #### L 100.0100 ####[facility] [address] [place], [address] Hematocrit (Bld) [Volume fraction] 29.8 % Low 40-54 [facility] Comment on above: Performed By: #### L 100.0100 ####[facility] [address] [place], [address] Hemoglobin (Bld) [Mass/Vol] 10.1 g/dL Low 13.0-16.5 [facility] Comment on above: Performed By: #### L 100.0100 ####[facility] [address] [place], [address] IG% 0.200 Normal 0.0-0.9 [facility] Comment on above: Result Comment: IG% - Immature Granulocytes (promyelocytes, myelocytes andmetamyelocytes) > 1% indicates that a LEFT SHIFT is Present. Performed By: #### L 100.0100 ####[facility] [address] [place], [address] Lymphocytes/100 WBC (Bld) 22.1 % Normal 19-41 [facility] Comment on above: Performed By: #### L 100.0100 ####[facility] [address] [place], [address] MCH (RBC) [Entitic mass] 36.1 pg High 27.0-32.0 [facility] Comment on above: Performed By: #### L 100.0100 ####[facility] [address] [place], [address] MCHC (RBC) [Mass/Vol] 33.9 g/dL Normal 32-36 [facility] Comment on above: Performed By: #### L 100.0100 ####[facility] [address] [place], [address] MCV (RBC) [Entitic vol] 106.4 fL High 80-94 [facility] Comment on above: Performed By: #### L 100.0100 ####[facility] [address] [place], [address] Monocytes/100 WBC (Bld) 11.6 % High 0-10 [facility] Comment on above: Performed By: #### L 100.0100 ####[facility] [address] [place], [address] Neutrophils/100 WBC (Bld) 65.3 % Normal 47-70 [facility] Comment on above: Performed By: #### L 100.0100 ####[facility] [address] [place], [address] Nucleated RBC (Bld) [#/Vol] 0 10*3/uL Normal 0-5 [facility] Comment on above: Performed By: #### L 100.0100 ####[facility] [address] [place], [address] Platelet mean volume (Bld) [Entitic vol] 11.8 fL Normal 6.2-12.0 [facility] Comment on above: Performed By: #### L 100.0100 ####[facility] [address] [place], [address] Platelets (Bld) [#/Vol] 124 10*3/uL Low 150-450 [facility] Comment on above: Performed By: #### L 100.0100 ####[facility] [address] [place], [address] RBC (Bld) [#/Vol] 2.80 10*6/uL Low 4.6-6.2 [facility] Comment on above: Performed By: #### L 100.0100 ####[facility] [address] [place], [address] RDW SD 63.9 fl High 35.1-43.9 [facility] Comment on above: Performed By: #### L 100.0100 ####[facility] [address] [place], [address] WBC (Bld) [#/Vol] 4.8 10*3/uL Normal 4.4-11.0 [facility] Comment on above: Performed By: #### L 100.0100 ####[facility] [address] [place], [address] Absolute Neut Normal 2.0-7.7 [facility] Comment on above: Result Comment: nigel ballard, spoke with ayden Performed By: #### L 100.0100, L500.4050, L501.2450, L503.6005 ####[facility] [address] [place], [address] HCT Normal 40-54 [facility] Comment on above: Result Comment: clot nellie, spoke with ayden Performed By: #### L 100.0100, L500.4050, L501.2450, L503.6005 ####[facility] [address] [place], [address] HGB Normal 13.0-16.5 [facility] Comment on above: Result Comment: clot nellie, spoke with ayden Performed By: #### L 100.0100, L500.4050, L501.2450, L503.6005 ####[facility] [address] [place], [address] MCH Normal 27.0-32.0 [facility] Comment on above: Result Comment: clot nellie, spoke with ayden Performed By: #### L 100.0100, L500.4050, L501.2450, L503.6005 ####[facility] [address] [place], [address] MCHC Normal 32-36 [facility] Comment on above: Result Comment: clot nellie, spoke with ayden Performed By: #### L 100.0100, L500.4050, L501.2450, L503.6005 ####[facility] [address] [place], [address] MCV Normal 80-94 [facility] Comment on above: Result Comment: clot nellie, spoke with ayden Performed By: #### L 100.0100, L500.4050, L501.2450, L503.6005 ####[facility] [address] [place], [address] NEUT% Normal 47-70 [facility] Comment on above: Result Comment: clot nellie, spoke with ayden Performed By: #### L 100.0100, L500.4050, L501.2450, L503.6005 ####[facility] [address] [place], [address] PLT Normal 150-450 [facility] Comment on above: Result Comment: nigel ballard, spoke with ayden Performed By: #### L 100.0100, L500.4050, L501.2450, L503.6005 ####[facility] [address] [place], [address] RBC Normal 4.6-6.2 [facility] Comment on above: Result Comment: clot nellie, spoke with ayden Performed By: #### L 100.0100, L500.4050, L501.2450, L503.6005 ####[facility] [address] [place], [address] RDW CV Normal 11.6-14.6 [facility] Comment on above: Result Comment: clot nellie, spoke with ayden Performed By: #### L 100.0100, L500.4050, L501.2450, L503.6005 ####[facility] [address] [place], [address] RDW SD Normal 35.1-43.9 [facility] Comment on above: Result Comment: clot nellie, spoke with ayden Performed By: #### L 100.0100, L500.4050, L501.2450, L503.6005 ####[facility] [address] [place], [address] WBC Normal 4.4-11.0 [facility] Comment on above: Result Comment: clot nellie, spoke with ayden Performed By: #### L 100.0100, L500.4050, L501.2450, L503.6005 ####[facility] [address] [place], [address] CO2 (BldV) [Moles/Vol]Ordere d By: Rolan Romero on 06-25-2024 CO2 [Moles/Vol] 30 mmol/L 23-33 [facility] Carbon dioxide, total [Moles /volume] in Central venous bloodOrdered By: Rolan Romero on 06-25-2024 CO2 [Moles/Vol] 24.2 mmol/L 21.0-32.0 [facility] Chloride assayOrdered By: Tray Romero on 06-25-2024 Chloride [Moles/Vol] 95 mmol/L Low 98-108 [facility] Clostridium difficile detect ion by polymerase chain reactionOrdered By: Conrado Fraser on 06-25-2024 C. difficile DNA GENEVA+probe Ql (Unsp spec) [facility] Comprehensive Metabolic Prof ilon 06-25-2024 Albumin [Mass/Vol] 2.5 g/dL Low 3.4-4.8 [facility] Comment on above: Order Comment: REDRA W. PREVIOUS SPECIMEN REJECTED DUE TOHEMOLYSIS. 06/25/241755 Jamari Aguayo. Performed By: #### L 500.4050, L501.2450 ####[facility] [address] [place], [address] Albumin/Globulin [Mass ratio] 1.0 {ratio} Normal 0.9-2.4 [facility] Comment on above: Order Comment: REDRA W. PREVIOUS SPECIMEN REJECTED DUE TOHEMOLYSIS. 06/25/241755 Jamari Aguayo. Performed By: #### L 500.4050, L501.2450 ####[facility] [address] [place], [address] ALK PHOS 125 U/L Normal 40-129 [facility] Comment on above: Order Comment: REDRA W. PREVIOUS SPECIMEN REJECTED DUE TOHEMOLYSIS. 06/25/241755 Jamari Aguayo. Performed By: #### L 500.4050, L501.2450 ####[facility] [address] [place], [address] ALT [Catalytic activity/Vol] 32 U/L Normal <=46 [facility] Comment on above: Order Comment: REDRA W. PREVIOUS SPECIMEN REJECTED DUE TOHEMOLYSIS. 06/25/241755 Jamari Aguayo. Performed By: #### L 500.4050, L501.2450 ####[facility] [address] [place], [address] AST [Catalytic activity/Vol] 62 U/L High <=37 [facility] Comment on above: Order Comment: REDRA W. PREVIOUS SPECIMEN REJECTED DUE TOHEMOLYSIS. 06/25/241755 Jamari Aguayo. Performed By: #### L 500.4050, L501.2450 ####[facility] [address] [place], [address] Bilirubin [Mass/Vol] 0.46 mg/dL Normal 0.00-1.30 [facility] Comment on above: Order Comment: REDRA W. PREVIOUS SPECIMEN REJECTED DUE TOHEMOLYSIS. 06/25/241755 Jamari Aguayo. Performed By: #### L 500.4050, L501.2450 ####[facility] [address] [place], [address] BUN/CRE 6.5 RATIO Low 10-20 [facility] Comment on above: Order Comment: REDRA W. PREVIOUS SPECIMEN REJECTED DUE TOHEMOLYSIS. 06/25/241755 Jamari Aguayo. Performed By: #### L 500.4050, L501.2450 ####[facility] [address] [place], [address] Calcium [Mass/Vol] 7.7 mg/dL Normal 7.6-11.0 [facility] Comment on above: Order Comment: REDRA W. PREVIOUS SPECIMEN REJECTED DUE TOHEMOLYSIS. 06/25/241755 Jamari Aguayo. Performed By: #### L 500.4050, L501.2450 ####[facility] [address] [place], [address] Chloride [Moles/Vol] 95 mmol/L Low 98-108 [facility] Comment on above: Order Comment: REDRA W. PREVIOUS SPECIMEN REJECTED DUE TOHEMOLYSIS. 06/25/241755 Jamari Aguayo. Performed By: #### L 500.4050, L501.2450 ####[facility] [address] [place], [address] CO2 [Moles/Vol] 24.2 mmol/L Normal 21.0-32.0 [facility] Comment on above: Order Comment: REDRA W. PREVIOUS SPECIMEN REJECTED DUE TOHEMOLYSIS. 06/25/241755 Jamari Aguayo. Performed By: #### L 500.4050, L501.2450 ####[facility] [address] [place], [address] Creatinine [Mass/Vol] 1.27 mg/dL High 0.70-1.20 [facility] Comment on above: Order Comment: REDRA W. PREVIOUS SPECIMEN REJECTED DUE TOHEMOLYSIS. 06/25/241755 Jamari Aguayo. Performed By: #### L 500.4050, L501.2450 ####[facility] [address] [place], [address] ECRCL 65.06 ml/min Normal 50-250 [facility] Comment on above: Order Comment: REDRA W. PREVIOUS SPECIMEN REJECTED DUE TOHEMOLYSIS. 06/25/241755 Jamari Aguayo. Performed By: #### L 500.4050, L501.2450 ####[facility] [address] [place], [address] GAP 16 High 5-15 [facility] Comment on above: Order Comment: REDRA W. PREVIOUS SPECIMEN REJECTED DUE TOHEMOLYSIS. 06/25/241755 Jamari Aguayo. Performed By: #### L 500.4050, L501.2450 ####[facility] [address] [place], [address] GFR/1.73 sq M.predicted among non-blacks MDRD (S/P/Bld) [Vol rate/Area] 64 mL/min/{1.73_m2} Normal >60 [facility] Comment on above: Order Comment: REDRA W. PREVIOUS SPECIMEN REJECTED DUE TOHEMOLYSIS. 06/25/241755 Jamari Callahan Olivier. Result Comment: mL/m in/1.73m2 CKD-EPI Creatinine Equation (2020) Performed By: #### L 500.4050, L501.2450 ####[facility] [address] [place], [address] Globulin (S) [Mass/Vol] 2.5 g/dL Normal 2.2-4.2 [facility] Comment on above: Order Comment: REDRA W. PREVIOUS SPECIMEN REJECTED DUE TOHEMOLYSIS. 06/25/241755 Jamari Callahan Olivier. Performed By: #### L 500.4050, L501.2450 ####[facility] [address] [place], [address] Glucose [Mass/Vol] 398 mg/dL High 70-99 [facility] Comment on above: Order Comment: REDRA W. PREVIOUS SPECIMEN REJECTED DUE TOHEMOLYSIS. 06/25/241755 Jamari Callahan Olivier. Performed By: #### L 500.4050, L501.2450 ####[facility] [address] [place], [address] Potassium [Moles/Vol] 2.2 mmol/L Invalid Interpretation Code 3.3-5.1 [facility] Comment on above: Order Comment: REDRA W. PREVIOUS SPECIMEN REJECTED DUE TOHEMOLYSIS. 06/25/241755 Jamari Callahan Olivier. Result Comment: Crit ical Result(s) Called at: 06/25/2024-18:50 by: Khushi to Ann-Marie Mondragon.??Results read back by same. Performed By: #### L 500.4050, L501.2450 ####[facility] [address] [place], [address] Sodium [Moles/Vol] 136 mmol/L Normal 133-145 [facility] Comment on above: Order Comment: REDRA W. PREVIOUS SPECIMEN REJECTED DUE TOHEMOLYSIS. 06/25/241755 Jamari Aguayo. Performed By: #### L 500.4050, L501.2450 ####[facility] [address] [place], [address] T PROT 5.0 g/dL Low 5.9-8.4 [facility] Comment on above: Order Comment: REDRA W. PREVIOUS SPECIMEN REJECTED DUE TOHEMOLYSIS. 06/25/241755 Jamari Aguayo. Performed By: #### L 500.4050, L501.2450 ####[facility] [address] [place], [address] Urea nitrogen [Mass/Vol] 8 mg/dL Normal 4-19 [facility] Comment on above: Order Comment: REDRA W. PREVIOUS SPECIMEN REJECTED DUE TOHEMOLYSIS. 06/25/241755 Jamari Aguayo. Performed By: #### L 500.4050, L501.2450 ####[facility] [address] [place], [address] ALB Normal 3.4-4.8 [facility] Comment on above: Result Comment: This specimen has been REJECTED due to Laboratory criteria:Hemolyzed.KIM (ED) has been notified of need of recollection.06/25/241754 Jamari Callahan White Performed By: #### L 100.0100, L500.4050, L501.2450, L503.6005 ####[facility] [address] [place], [address] ALK PHOS Normal 40-129 [facility] Comment on above: Result Comment: This specimen has been REJECTED due to Laboratory criteria:Hemolyzed.KIM (ED) has been notified of need of recollection.06/25/241754 Jamari Callahan White Performed By: #### L 100.0100, L500.4050, L501.2450, L503.6005 ####[facility] [address] [place], [address] ALT Normal <=46 [facility] Comment on above: Result Comment: This specimen has been REJECTED due to Laboratory criteria:Hemolyzed.KIM (ED) has been notified of need of recollection.06/25/241754 Jamari L White Performed By: #### L 100.0100, L500.4050, L501.2450, L503.6005 ####[facility] [address] [place], [address] AST Normal <=37 [facility] Comment on above: Result Comment: This specimen has been REJECTED due to Laboratory criteria:Hemolyzed.KIM (ED) has been notified of need of recollection.06/25/241754 Jamari L White Performed By: #### L 100.0100, L500.4050, L501.2450, L503.6005 ####[facility] [address] [place], [address] BUN Normal 4-19 [facility] Comment on above: Result Comment: This specimen has been REJECTED due to Laboratory criteria:Hemolyzed.KIM (ED) has been notified of need of recollection.06/25/241754 Jamari L White Performed By: #### L 100.0100, L500.4050, L501.2450, L503.6005 ####[facility] [address] [place], [address] BUN/CRE Normal 10-20 [facility] Comment on above: Result Comment: This specimen has been REJECTED due to Laboratory criteria:Hemolyzed.KIM (ED) has been notified of need of recollection.06/25/241754 Jamari L White Performed By: #### L 100.0100, L500.4050, L501.2450, L503.6005 ####[facility] [address] [place], [address] Calcium Normal 7.6-11.0 [facility] Comment on above: Result Comment: This specimen has been REJECTED due to Laboratory criteria:Hemolyzed.PAIGEILIE (ED) has been notified of need of recollection.06/25/241754 Jamari Callahan White Performed By: #### L 100.0100, L500.4050, L501.2450, L503.6005 ####[facility] [address] [place], [address] CL Normal 98-108 [facility] Comment on above: Result Comment: This specimen has been REJECTED due to Laboratory criteria:Hemolyzed.LORILIE (ED) has been notified of need of recollection.06/25/241754 Jamari Callahan White Performed By: #### L 100.0100, L500.4050, L501.2450, L503.6005 ####[facility] [address] [place], [address] CO2 Normal 21.0-32.0 [facility] Comment on above: Result Comment: This specimen has been REJECTED due to Laboratory criteria:Hemolyzed.PAIGEILIE (ED) has been notified of need of recollection.06/25/241754 Jamari Callahan White Performed By: #### L 100.0100, L500.4050, L501.2450, L503.6005 ####[facility] [address] [place], [address] CREAT,SERUM Normal 0.70-1.20 [facility] Comment on above: Result Comment: This specimen has been REJECTED due to Laboratory criteria:Hemolyzed.LORILIE (ED) has been notified of need of recollection.06/25/241754 Jamari Callahan White Performed By: #### L 100.0100, L500.4050, L501.2450, L503.6005 ####[facility] [address] [place], [address] eGFR Normal >60 [facility] Comment on above: Result Comment: This specimen has been REJECTED due to Laboratory criteria:Hemolyzed.KIM (ED) has been notified of need of recollection.06/25/241754 Jamari L White Performed By: #### L 100.0100, L500.4050, L501.2450, L503.6005 ####[facility] [address] [place], [address] GAP Normal 5-15 [facility] Comment on above: Result Comment: This specimen has been REJECTED due to Laboratory criteria:Hemolyzed.KIM (ED) has been notified of need of recollection.06/25/241754 Jamari L White Performed By: #### L 100.0100, L500.4050, L501.2450, L503.6005 ####[facility] [address] [place], [address] GLU Normal 70-99 [facility] Comment on above: Result Comment: This specimen has been REJECTED due to Laboratory criteria:Hemolyzed.KIM (ED) has been notified of need of recollection.06/25/241754 Jamari L White Performed By: #### L 100.0100, L500.4050, L501.2450, L503.6005 ####[facility] [address] [place], [address] Potassium Normal 3.3-5.1 [facility] Comment on above: Result Comment: This specimen has been REJECTED due to Laboratory criteria:Hemolyzed.KIM (ED) has been notified of need of recollection.06/25/241754 Jamari L White Performed By: #### L 100.0100, L500.4050, L501.2450, L503.6005 ####[facility] [address] [place], [address] T BILI Normal 0.00-1.30 [facility] Comment on above: Result Comment: This specimen has been REJECTED due to Laboratory criteria:Hemolyzed.KIM (ED) has been notified of need of recollection.06/25/241754 Jamari Callahan White Performed By: #### L 100.0100, L500.4050, L501.2450, L503.6005 ####[facility] [address] [place], [address] T PROT Normal 5.9-8.4 [facility] Comment on above: Result Comment: This specimen has been REJECTED due to Laboratory criteria:Hemolyzed.KIM (ED) has been notified of need of recollection.06/25/241754 Jamari Callahan White Performed By: #### L 100.0100, L500.4050, L501.2450, L503.6005 ####[facility] [address] [place], [address] Comprehensive Metabolic Profil Normal 133-145 [facility] Comment on above: Result Comment: This specimen has been REJECTED due to Laboratory criteria:Hemolyzed.KIM (ED) has been notified of need of recollection.06/25/241754 Jamari L White Performed By: #### L 100.0100, L500.4050, L501.2450, L503.6005 ####[facility] [address] [place], [address] Emergency Department Summary on 06-25-2024 Emergency Department Summary Normal [facility] Eosinophil percentageOrdered By: Rolan Romero on 06-25-2024 Eosinophils/100 WBC (Bld) 0.2 % 0-5 [facility] Erythrocyte distribution wid th ratioOrdered By: Rolan Romero on 06-25-2024 Erythrocyte distribution width (RBC) [Ratio] 16.2 % High 11.6-14.6 [facility] Erythrocyte distribution wid th standard deviationOrdered By: Rolan Quinn on 06-25-2024 Erythrocyte distribution width (RBC) [Ratio] 63.9 fl High 35.1-43.9 [facility] Glomerular filtration rate ( GFR) estimation/1.73 sq m using serum, plasma, or whole bOrdered By: Rolan Romero on 06-25-2024 GFR/1.73 sq M.predicted among non-blacks MDRD (S/P/Bld) [Vol rate/Area] 64 mL/min/{1.73_m2} >60 [facility] Comment on above: mL/min/1.73m2 CKD-EP I Creatinine Equation (2020) [facility] By: Rolan Romero on 06-25-2024 Glucose [Mass/Vol] 277 mg/dL High 74-106 [facility] Comment on above: MANAGEMENT OF PATIEN T CARE PER NURSING PROTOCOL H AND P Exam - [facility] 06-25-2024 H&P Exam - Hospitalist Normal [facility] Hematocrit Auto (Bld) [Volum e fraction]Ordered By: Rolan Romero on 06-25-2024 Hematocrit (Bld) [Volume fraction] 29.8 % Low 40-54 [facility] Hemoglobin A1c percentageOrd ered By: Conrado Fraser on 06-25-2024 HbA1c (Bld) [Mass fraction] 6.6 % High <5.7 [facility] Comment on above: Normal < 5.7 % Predi abetic 5.7 - 6.4 % Diabetic >or= 6.5 % Please note range changes. Hemoglobin measurementOrdere d By: Rolan Roemro on 06-25-2024 Hemoglobin (Bld) [Mass/Vol] 10.1 g/dL Low 13.0-16.5 [facility] Immature granulocytes/100 WB C Auto (Bld)Ordered By: Rolan Romero on 06-25-2024 Immature granulocytes/100 WBC (Bld) 0.200 % 0.0-0.9 [facility] Comment on above: IG% - Immature Granu locytes (promyelocytes, myelocytes and metamyelocytes) > 1% indicates that a LEFT SHIFT is Present. Ketones Test strip Ql (U)Ord ered By: Rolan Romero on 06-25-2024 Ketones Ql (U) Negative Negative [facility] Laboratory - Chemistry and C hemistry - challengeOrdered By: Rolan Romero on 06-25-2024 AST [Catalytic activity/Vol] 62 U/L High <38 [facility] Lactic Acidon 06-25-2024 Lactate [Moles/Vol] 4.8 mmol/L Invalid Interpretation Code 0.0-2.0 [facility] Comment on above: Result Comment: Crit ical Result(s) Called at: 2317by: MATTHEW HUBER TO ELIS VALENCIA.??Results read back bysame. Performed By: #### L 503.6005 ####[facility] [address] [place], [address] Lactate [Moles/Vol] 6.6 mmol/L Invalid Interpretation Code 0.0-2.0 [facility] Comment on above: Order Comment: Y Result Comment: Crit ical Result(s) Called at: 06/25/2024-18:50 by: Khushi to Ann-Marie Mondragon.??Results read back by same. Performed By: #### L 100.0100, L500.4050, L501.2450, L503.6005 ####[facility] [address] [place], [address] Lactic acid measurementOrder ed By: Rolan Romero on 06-25-2024 Lactate [Moles/Vol] 4.8 mmol/L High 0.0-2.0 [facility] Comment on above: Critical Result(s) C alled at: 2317by: MATTHEW HUBER TO ELIS VALENCIA. Results read back by same. Lipaseon 06-25-2024 Lipase [Catalytic activity/Vol] 6 U/L Low 13-75 [facility] Comment on above: Order Comment: OLIVIA Dobbs PREVIOUS SPECIMEN REJECTED DUE TOHEMOLYSIS. 06/25/241755 Jamari Aguayo. Result Comment: Mary Anne zamorano note:LIPASE revised reference range effective 22.New Lipase methodology. Expected to produce lower valuesthan the previous assay method.NEW Reference Range: 13 - 75 U/L Performed By: #### L 500.4050, L501.2450 ####[facility] [address] [place], [place], [address] Lipase [Catalytic activity/Vol] 11 U/L Low 13-75 [facility] Comment on above: Order Comment: [...] By: #### L 100.0100, L500.4050, L501.2450, L503.6005 ####[facility] [address] [place], [place], [id number] Lipase measurementOrdered By : Rolan Romero on 06-25-2024 Lipase [Catalytic activity/Vol] 6 U/L Low 13-75 [facility] Comment on above: Please note:LIPASE r evised reference range effective 22. New Lipase methodology. Expected to produce lower values than the previous assay method. NEW Reference Range: 13 - 75 U/L MCV (mean corpuscular volume ) determinationOrdered By: Rolan Romero on 06-25-2024 MCV (RBC) [Entitic vol] 106.4 fL High 80-94 [facility] Magnesiumon 06-25-2024 Magnesium [Mass/Vol] 1.8 mg/dL Normal 1.5-2.2 [facility] Comment on above: Performed By: #### L 501.5600, L501.6901, L501.5200 ####[facility] [address] [place], [place], [id number] Magnesium measurement (mass/ volume)Ordered By: Rolan Romero on 06-25-2024 Magnesium (Unsp spec) [Mass/Vol] 1.8 mg/dL 1.5-2.2 [facility] Mean corpuscular hemoglobin (MCH) determinationOrdered By: Rolan Romero on 06-25-2024 MCH (RBC) [Entitic mass] 36.1 pg High 27.0-32.0 [facility] Mean corpuscular hemoglobin concentration (MCHC) determinationOrdered By: Rolan Romero on 06-25-2024 MCHC (RBC) [Mass/Vol] 33.9 g/dL 32-36 [facility] Mean platelet volume determi nationOrdered By: Rolan Romero on 06-25-2024 Platelet mean volume (Bld) [Entitic vol] 11.8 fL 6.2-12.0 [facility] Microscopic analysis of urin e for red blood cells (RBC)Ordered By: Rolan Romero on 06-25-2024 Microscopic analysis of urine for red blood cells (RBC) 0 SEEN /hpf 0-5 [facility] Monocyte percentageOrdered B y: Rolan Romero on 06-25-2024 Monocytes/100 WBC (Bld) 11.6 % High 0-10 [facility] Mucus LM Ql (Urine sed)Order ed By: Rolan Romero on 06-25-2024 Mucus Ql (Urine sed) 0 SEEN /hpf [facility] Neutrophil percentageOrdered By: Rolan Romero on 06-25-2024 Neutrophils/100 WBC (Bld) 65.3 % 47-70 [facility] Nitrite Test strip Ql (U)Ord ered By: Rolan Romero on 06-25-2024 Nitrite Ql (U) Negative Negative [facility] No Panel InformationOrdered By: Rolan Romero on 06-25-2024 Blood Gas Sample Site Not entered [facility] Blood Gas Specimen Type ROSA [facility] Oxygen Delivery Device Room Air [facility] ROSA [facility] Not entered [facility] Room Air [facility] No Panel InformationOrdered By: Conrado Fraser on 06-25-2024 Urine Buprenorphine Qualitative Negative < 200 ng/mL [facility] Urine Oxycodone Screen Negative < 100 ng/mL [facility] Negative < 200 ng/mL [facility] Nucleated red blood cell per centageOrdered By: Rolan Romero on 06-25-2024 Nucleated RBC/100 WBC (Bld) [Ratio] 0 % 0-5 [facility] Platelet countOrdered By: Tray Romero on 06-25-2024 Platelets (Bld) [#/Vol] 124 10*3/uL Low 150-450 [facility] Potassiumon 06-25-2024 Potassium [Moles/Vol] 2.1 mmol/L Invalid Interpretation Code 3.3-5.1 [facility] Comment on above: Result Comment: Crit ical Result(s) Called at: 06/25/2024-21:41 by: Khushi VASQUEZ.??Results read back by same. Performed By: #### L 501.5600, L501.6901, L501.5200 ####[facility] [address] [place], [address] Potassium measurement (mass/ volume)Ordered By: Rolan Romero on 06-25-2024 Potassium (Unsp spec) [Mass/Vol] 2.1 mmol/L Low 3.3-5.1 [facility] Comment on above: Critical Result(s) C alled at: 06/25/2024-21:41 by: Jamari Aguayo to WILFREDO VASQUEZ. Results read back by same. Protein Test strip Ql (U)Ord ered By: Rolan Romero on 06-25-2024 Protein Ql (U) 15 mg/dl High Negative [facility] Quantitative urine opiates m easurementOrdered By: Conrado Fraser on 06-25-2024 Opiates Ql (U) Negative < 300 ng/mL [facility] RBC Auto (Bld) [#/Vol]Ordere d By: Rolan Romero on 06-25-2024 RBC (Bld) [#/Vol] 2.80 10*6/uL Low 4.6-6.2 [facility] Screening urine fentanyl mine surementOrdered By: Conrado Fraser on 06-25-2024 fentaNYL Screen Ql (U) Negative [facility] Serum creatinine measurement (mass/volume)Ordered By: Rolan Romero on 06-25-2024 Creatinine [Mass/Vol] 1.27 mg/dL High 0.70-1.20 [facility] Serum globulin measurementOr dered By: Rolan Romero on 06-25-2024 Globulin (S) [Mass/Vol] 2.5 g/dL 2.2-4.2 [facility] Serum glucose measurement (m ass/volume)Ordered By: Rolan Romero on 06-25-2024 Glucose [Mass/Vol] 398 mg/dL High 70-99 [facility] Serum or plasma alanine padilla otransferase (ALT) measurementOrdered By: Rolan Romero on 06-25-2024 ALT [Catalytic activity/Vol] 32 U/L <47 [facility] Serum or plasma albumin luciana urement (mass/volume)Ordered By: Rolan Quinn on 06-25-2024 Albumin [Mass/Vol] 2.5 g/dL Low 3.4-4.8 [facility] Serum or plasma albumin/glob ulin mass ratioOrdered By: Rolan Romero on 06-25-2024 Albumin/Globulin [Mass ratio] 1.0 {ratio} 0.9-2.4 [facility] Serum or plasma alkaline nolan sphatase measurementOrdered By: Rolan Romero on 06-25-2024 ALP [Catalytic activity/Vol] 125 U/L 40-129 [facility] Serum or plasma calcium luciana urement (mass/volume)Ordered By: Rolan Quinn on 06-25-2024 Calcium [Mass/Vol] 7.7 mg/dL 7.6-11.0 [facility] Serum or plasma ethanol luciana urement (mass/volume)Ordered By: Rolan Quinn on 06-25-2024 Ethanol [Mass/Vol] mg/dL <10.1 [facility] Comment on above: This test is for med ical purposes only. The legal definition of intoxication varies according to local law. Serum or plasma urea nitroge n measurement (mass/volume)Ordered By: Rolan Romero on 06-25-2024 Urea nitrogen [Mass/Vol] 8 mg/dL 4-19 [facility] Sodium levelOrdered By: Praneeth Romero on 06-25-2024 Sodium [Moles/Vol] 136 mmol/L 133-145 [facility] Squamous epithelial cells de tection in urine sediment by light microscopyOrdered By: Rolan Romero on 06-25-2024 Epithelial cells.squamous LM Ql (Urine sed) 0 SEEN /hpf 0-5 [facility] Stool lactoferrin detection by immunoassayOrdered By: Conrado Fraser on 06-25-2024 Lactoferrin IA Ql (Stl) [facility] Total proteinOrdered By: Dom Romero on 06-25-2024 Protein [Mass/Vol] 5.0 g/dL Low 5.9-8.4 [facility] Urinalysis, Completeon 06-25 BACTERIA 0 SEEN Normal None Seen [facility] Comment on above: Order Comment: CLEAN CATCH Performed By: #### L 400.0001 ####[facility] [address] [place], [address] EPI,SQUAMOUS 0 SEEN Normal 0-5 [facility] Comment on above: Order Comment: CLEAN CATCH Performed By: #### L 400.0001 ####[facility] [address] [place], [address] Mucus Ql (Urine sed) 0 SEEN Normal [facility] Comment on above: Order Comment: CLEAN CATCH Performed By: #### L 400.0001 ####[facility] [address] [place], [address] RBC 0 SEEN Normal 0-5 [facility] Comment on above: Order Comment: CLEAN CATCH Performed By: #### L 400.0001 ####[facility] [address] [place], [place], [address] WBC 0 SEEN Normal 0-5 [facility] Comment on above: Order Comment: CLEAN CATCH Performed By: #### L 400.0001 ####[facility] [address] [place], [place], [id number] Urine benzodiazepine levelOr dered By: Conrado Fraser on 06-25-2024 Benzodiazepines Ql (U) Negative < 200 ng/mL [facility] Urine clarityOrdered By: Dom Romero on 06-25-2024 Clarity (U) Clear Clear [facility] Urine cocaine levelOrdered B y: Conrado Fraser on 06-25-2024 Cocaine Ql (U) Negative < 300 ng/mL [facility] Urine color determinationOrd ered By: Rolan Romero on 06-25-2024 Color (U) Yellow Yellow [facility] Urine oafjo-1-iskdpctnsqaolk abinol (THC) measurementOrdered By: Conrado Fraser on 06-25-2024 Cannabinoids Screen Ql (U) Negative < 50 ng/mL [facility] Urine glucose detectionOrder ed By: Rolan Romero on 06-25-2024 Glucose Ql (U) 1000 mg/dl High Normal [facility] Urine leukocyte esterase det ection by dipstickOrdered By: Rolan Romero on 06-25-2024 Leukocyte esterase Test strip Ql (U) Negative Negative [facility] Urine pHOrdered By: Rolan Saul on 06-25-2024 pH (U) 7.0 [pH] 5.0 - 8.0 [facility] Urine phencyclidine (PCP) de tectionOrdered By: Conrado Fraser on 06-25-2024 Phencyclidine Ql (U) Negative < 25 ng/mL [facility] Urine sediment bacteria coun t by microscopy (number/high power field)Ordered By: Rolan Romero on 06-25-2024 Bacteria LM.HPF (Urine sed) [#/Area] 0 /[HPF] None Seen [facility] Urine specific gravity measu rementOrdered By: Rolan Romero on 06-25-2024 Specific gravity (U) [Rel density] 1.010 1.002-1.030 [facility] Urine urobilinogen measureme ntOrdered By: Rolan Romero on 06-25-2024 Urobilinogen Ql (U) Normal mg/dl Normal [facility] Venous Blood Gason 5 Blood Gas Type ROSA Normal [facility] Comment on above: Performed By: #### L 9000.0810 ####[facility] [address] [place], [address] CO2 [Moles/Vol] 30 mmol/L Normal 23-33 [facility] Comment on above: Performed By: #### L 8999.0810 ####[facility] [address] [place], [address] HCO3 (Bld) [Moles/Vol] 29 mmol/L High 22-26 [facility] Comment on above: Performed By: #### L 9000.0810 ####[facility] [address] [place], [address] O2 Delivery Dev Room Air Normal [facility] Comment on above: Performed By: #### L 9000.0810 ####[facility] [address] [place], [address] SITE Not entered Normal [facility] Comment on above: Performed By: #### L 9000.0810 ####[facility] [address] [place], [address] VBG BE 4 mmol/L High -1.0-3.5 [facility] Comment on above: Performed By: #### L 900.0810 ####[facility] [address] [place], [address] VBG pCO2 42.7 mmHg Normal 41-51 [facility] Comment on above: Performed By: #### L 9000.0810 ####[facility] [address] [place], [address] VBG pH 7.43 High 7.32-7.42 [facility] Comment on above: Performed By: #### L 9000.0810 ####[facility] [address] [place], [address] VBG PO2 29 mmHg Normal 25-40 [facility] Comment on above: Performed By: #### L 9000.0810 ####[facility] [address] [place], [address] VBG SO2 58 Normal 50-70 [facility] Comment on above: Performed By: #### L 9000.0810 ####[facility] [address] [place], [place], [address] Venous blood base excess mine surementOrdered By: Rolan Romero on 06-25-2024 Base excess Calc (BldV) [Moles/Vol] 4 mmol/L High -1.0-3.5 [facility] Venous blood bicarbonate mine surementOrdered By: Rolan Romero on 06-25-2024 HCO3 (Bld) [Moles/Vol] 29 mmol/L High 22-26 [facility] Venous blood oxygen saturati on measurementOrdered By: Rolan Romero on 06-25-2024 Oxygen saturation in Blood 58 % 50-70 [facility] Venous blood pH measurementO rdered By: Rolan Romero on 06-25-2024 pH (BldV) 7.43 [pH] High 7.32-7.42 [facility] Venous blood partial pressur e of carbon dioxide measurementOrdered By: Rolan Romero on 06-25-2024 CO2 (BldV) [Partial pressure] 42.7 mm[Hg] 41-51 [facility] Venous blood partial pressur e of oxygen measurementOrdered By: Rolan Quinn on 06-25-2024 Oxygen (BldV) [Partial pressure] 29 mm[Hg] 25-40 [facility] White blood cell (WBC) count Ordered By: Rolan Romero on 06-25-2024 WBC (Bld) [#/Vol] 4.8 10*3/uL 4.4-11.0 [facility] White blood cell countOrdere d By: Rolan Romero on 06-25-2024 White blood cell count 0 SEEN /hpf 0-5 [facility] CNPNon 06-21-2024 CNPN Telephone (AGFAMPLE) ANALILIA MELENDREZ ([id number]) 1960 M Date Time Provider Department 06/21/24 [...] be called in FLORENTINO Cerrato Brittny A, APRN.[facility] 06/23/2024 8:13 AM Signed His urine would need to be tested first. I placed the lab order. Marianna Wagner APRN.PHYSICAL THERAPIST TECHNICIAN 06/23/2024 8:13 AM Signed Addended by: MARIANNA [...] Fully Assessed Reason for Visit: Patient Question [2807] Primary Visit Diagnosis:UTI symptoms [R39.9] Order(s):URINALYSIS (WITH MICROSCOPIC) WITH CULTURE IF INDICATED [SQUACII] Order #: [id number] FUTURE Prescriptions as of 06/23/2024 - UNIFINE [...] fourteen (14) days to upper arm. - jlbtak-oczsjnjq-fddhwlz (CREON 36) 36,000-114,000- 180,000 unit delayed release capsule Take 2 pills by mouth with first bite of meal and take 1 pill with snacks. Max 10 per day. - Cholecalciferol, Vitamin D3, (VITAMIN D-3) 50 mcg (2,000 unit) cap Take 1 capsule by mouth once daily. 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*01/03/2017 Chronic pancreatitis (HCC) [K86.1] 08/09/2023 Calcium [...] attack) [ (more content not included)... 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 He denies other symptoms patient would like to know if he needs a med change FLORENTINO Cerrato Brittny A, SCREEN REPAIRER CRUSHER.[facility] 04/14/2024 8:19 AM Signed I would [...] fourteen (14) days to upper arm. - yjgrfy-edimaimg-yilsvek (CREON 36) 36,000-114,000- 180,000 unit delayed release capsule Take 2 pills by mouth with first bite of meal and take 1 pill with snacks. Max 10 per day. - Cholecalciferol, Vitamin D3, (VITAMIN D-3) 50 mcg (2,000 unit) cap Take 1 capsule by mouth once daily. 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*01/03/2017 Chronic pancreatitis (HCC) [K86.1] 08/09/2023 Calcium [...] pacemaker [Z95.0] (more content not included)... Normal [facility] CBC W Auto Differential pane l (Bld)on 04-12-2024 Basophils (Bld) [#/Vol] 0.11 10*3/uL High <0.11 [facility] Comment on above: Order Comment: Speci men Type: BLOOD SPECIMENOrdering Facility: [facility] Address: [address] [place] [address] Performed By: #### 5 7021-8 ####[facility] [id number] [place] [address] [place] Basophils/100 WBC (Bld) 2.1 % Normal C [facility] Comment on above: Order Comment: Speci men Type: BLOOD SPECIMENOrdering Facility: [facility] Address: [address] [place] [address] Performed By: #### 5 7021-8 ####[facility] HOSPITALMARIANNAA [id number] [place] [address] [place] Differential cell count method Nom (Bld) Auto Normal [facility] Comment on above: Order Comment: Speci men Type: BLOOD SPECIMENOrdering Facility: [facility] Address: [address] [place] [address] Performed By: #### 5 7021-8 ####[facility] HOSPITALLIA [id number] [place] [address] [place] Eosinophils (Bld) [#/Vol] 0.06 10*3/uL Normal <0.46 [facility] Comment on above: Order Comment: Speci men Type: BLOOD SPECIMENOrdering Facility: [facility] Address: [address] [place] [address] Performed By: #### 5 7021-8 ####[facility] FOSTERJevonNCROSAURA [id number] [place] [address] [place] Eosinophils/100 WBC (Bld) 1.1 % Normal [facility] Comment on above: Order Comment: Speci men Type: BLOOD SPECIMENOrdering Facility: [facility] Address: [address] [place] [address] Performed By: #### 5 7021-8 ####[facility] HOSPITALNCLI [id number] [place] [address] [place] Erythrocyte distribution width (RBC) [Ratio] 15.6 % High 11.5-15.0 [facility] Comment on above: Order Comment: Speci men Type: BLOOD SPECIMENOrdering Facility: [facility] Address: [address] [place] [address] Performed By: #### 5 7021-8 ####[facility] HOSPITALNCA [id number] [place] [address] [place] Hematocrit (Bld) [Volume fraction] 36.8 % Low 39.0-51.0 [facility] Comment on above: Order Comment: Speci men Type: BLOOD SPECIMENOrdering Facility: [facility] Address: [address] [place] [address] Performed By: #### 5 7021-8 ####[facility] HOSPITALNCLIA [id number] [place] [address] [place] Hemoglobin (Bld) [Mass/Vol] 11.9 g/dL Low 13.0-17.0 [facility] Comment on above: Order Comment: Speci men Type: BLOOD SPECIMENOrdering Facility: [facility] Address: [address] [place] [address] Performed By: #### 5 7021-8 ####[facility] MILLTOWNCLIA [id number] [place] [address] [place] Immature granulocytes (Bld) [#/Vol] 10*3/uL Normal <0.10 [facility] Comment on above: Order Comment: Speci men Type: BLOOD SPECIMENOrdering Facility: [facility] Address: [address] [place] [address] Performed By: #### 5 7021-8 ####[facility] PORT CHARLOTTEWNCLIA [id number] [place] [address] [place] Immature granulocytes/100 WBC (Bld) 0.4 % Normal [facility] Comment on above: Order Comment: Speci men Type: BLOOD SPECIMENOrdering Facility: [facility] Address: [address] [place] [address] Performed By: #### 5 7021-8 ####[facility] HOSPITALLIA [id number] [place] [address] [place] Lymphocytes (Bld) [#/Vol] 1.31 10*3/uL Normal 1.00-4.00 [facility] Comment on above: Order Comment: Speci men Type: BLOOD SPECIMENOrdering Facility: [facility] Address: [address] [place] [address] Performed By: #### 5 7021-8 ####[facility] MILLWNCLIA [id number] [place] [address] [place] Lymphocytes/100 WBC (Bld) 24.5 % Normal [facility] Comment on above: Order Comment: Speci men Type: BLOOD SPECIMENOrdering Facility: [facility] Address: [address] [place] [address] Performed By: #### 5 7021-8 ####[facility] HOSPITALNCLIA [id number] [place] [id number] [place] MCH (RBC) [Entitic mass] 32.3 pg Normal 26.0-34.0 [facility] Comment on above: Order Comment: Speci men Type: BLOOD SPECIMENOrdering Facility: [facility] Address: [address] [place] [address] Performed By: #### 5 7021-8 ####[facility] HOSPITALRODO [id number] [place] [address] [place] MCHC (RBC) [Mass/Vol] 32.3 g/dL Normal 30.5-36.0 [facility] Comment on above: Order Comment: Speci men Type: BLOOD SPECIMENOrdering Facility: [facility] Address: [address] [place] [address] Performed By: #### 5 7021-8 ####[facility] HOSPITALMAGUETayla [id number] [address] [place] MCV (RBC) [Entitic vol] 100.0 fL Normal 80.0-100.0 C [facility] Comment on above: Order Comment: Speci men Type: BLOOD SPECIMENOrdering Facility: [facility] Address: [address] [place] [address] Performed By: #### 5 7021-8 ####[facility] CENTERTayla [id number] [place] [address] [place] Monocytes (Bld) [#/Vol] 0.44 10*3/uL Normal <0.87 [facility] Comment on above: Order Comment: Speci men Type: BLOOD SPECIMENOrdering Facility: [facility] Address: [address] [place] [address] Performed By: #### 5 7021-8 ####[facility] HOSPITALNCLIA [id number] [address] [place] Monocytes/100 WBC (Bld) 8.2 % Normal C [facility] Comment on above: Order Comment: Speci men Type: BLOOD SPECIMENOrdering Facility: [facility] Address: [address] [place] [address] Performed By: #### 5 7021-8 ####[facility] FOSTERWHITESBOROMAGUELIA [id number] [place] [address] [place] Neutrophils (Bld) [#/Vol] 3.41 10*3/uL Normal 1.45-7.50 [facility] Comment on above: Order Comment: Speci men Type: BLOOD SPECIMENOrdering Facility: [facility] Address: [address] [place] [address] Performed By: #### 5 7021-8 ####[facility] HOSPITALLIA [id number] [place] [address] [place] Neutrophils/100 WBC (Bld) 63.7 % Normal [facility] Comment on above: Order Comment: Speci men Type: BLOOD SPECIMENOrdering Facility: [facility] Address: [address] [place] [address] Performed By: #### 5 7021-8 ####[facility] HOSPITALLIA [id number] [place] [address] [place] Nucleated RBC (Bld) [#/Vol] 10*3/uL Normal <0.01 [facility] Comment on above: Order Comment: Speci men Type: BLOOD SPECIMENOrdering Facility: [facility] Address: [address] [place] [address] Performed By: #### 5 7021-8 ####[facility] HOSPITALLIA [id number] [place] [address] [place] Nucleated RBC/100 WBC (Bld) [Ratio] 0.0 /100 WBC Normal [facility] Comment on above: Order Comment: Speci men Type: BLOOD SPECIMENOrdering Facility: [facility] Address: [address] [place] [address] Performed By: #### 5 7021-8 ####[facility] MILLTOWNCLIA [id number] [place] [address] [place] Platelet mean volume (Bld) [Entitic vol] 11.6 fL Normal 9.0-12.7 [facility] Comment on above: Order Comment: Speci men Type: BLOOD SPECIMENOrdering Facility: [facility] Address: [address] [place], [place] [address] Performed By: #### 5 7021-8 ####[facility]ITAL[facility]CLIA [id number] [place] [address] [place] Platelets (Bld) [#/Vol] 164 10*3/uL Normal 150-400 [facility] Comment on above: Order Comment: Speci men Type: BLOOD SPECIMENOrdering Facility: [facility] Address: [address] [place], [place] [address] Performed By: #### 5 7021-8 ####[facility]ITALNCLIA [id number] [place] [address] [place] RBC (Bld) [#/Vol] 3.68 10*6/uL Low 4.20-6.00 [facility] Comment on above: Order Comment: Speci men Type: BLOOD SPECIMENOrdering Facility: [facility] Address: [address] [place], [place] [address] Performed By: #### 5 7021-8 ####[facility] MILLWNCLIA [id number] [place] [address] [place] WBC (Bld) [#/Vol] 5.35 10*3/uL Normal 3.70-11.00 [facility] Comment on above: Order Comment: Speci men Type: BLOOD SPECIMENOrdering Facility: [facility] Address: [address] [place], [place] [address] Performed By: #### 5 7021-8 ####[facility]ITALNCLIA [id number] [place] [address] [place] CNOVSPon 04-12-2024 CNOVSP Normal [facility] ANES POSTPROC EVALon 025 ANES POSTPROC EVAL HNO ID: [id number] Author: LUCAS SAHU MD Service: Anesthesiology Author Type: Anesthesiologist Type: Anesthesia Postprocedure Evaluation Filed: 04/05/2024 13:44 Note Text: POST ANESTHESIA EVALUATION NOTE : 1960 Procedure Summary Date: 04/05/24 Room / Location: [facility] Endoscopy Anesthesia Start: 1215 Anesthesia Stop: 1256 Procedures: COLONOSCOPY DIAGNOSTIC EGD DIAGNOSTIC Diagnosis: Anemia, unspecified type Weight loss Chronic pancreatitis, unspecified pancreatitis type (HCC) Epigastric pain (Iron deficiency anemia) (Iron deficiency anemia) Scheduled Providers: Phoebe Vazquez MD; Trenton Amaral MD; Lucas Delarosa APRN.BLAST FURNACE CHECKER Responsible Provider: Román Vazquez MD Anesthesia Type: [...] care. Anesthesia Observations No Documentation SIGNATURE: Lucas aShu MD PATIENT NAME: Analilia Melendrez DATE: April 05, 2024 TIME: 1:44 PM CSN: [id number] [facility] ANES PRE-OPon 04-05-2024 ANES PRE-OP HNO ID: [id number] Author: TRENTON AMARAL MD Service: ? Author Type: Anesthesiologist Type: Anesthesia Preprocedure Evaluation Filed: 04/05/2024 12:16 Note Text: ANESTHESIOLOGY DAY OF SURGERY NOTE : 1960 Procedure Information Date/Time: 04/05/24 1415 Scheduled providers: Phoebe Vazquez MD; Trenton Amaral MD; Lucas Delarosa APRN.BLAST FURNACE CHECKER Procedures: COLONOSCOPY DIAGNOSTIC EGD DIAGNOSTIC Location: [facility] Endoscopy Estimated body mass index is 18.97 kg/m? as calculated from the following: Height as of 12/27/23: 180.3 cm (5' 11). Weight as of 12/27/23: 61.7 kg (136 lb). Most recent hematocrit and potassium results: Hematocrit 31.8 10/15/2023 Potassium 4.8 10/15/2023 Relevant Problems CARDIO (+) Acute thoracic aortic dissection (HCC) (+) Aortic aneurysm (HCC) (+) Atherosclerotic heart disease of [place] coronary artery without angina pectoris (+) Old [...] and consent discussed: yes. Patient / Responsible Republican agrees to proceed: yes Patient / Surrogate [...] every fourteen (14) days to upper arm. nswhel-zskwcdau-egdepdv (CREON 36) 36,000-114,000- 180,000 unit delayed release capsule Take 2 pills by mouth with first bite of meal and take 1 pill with snacks. Max 10 per day. Cholecalciferol, Vitamin D3, (VITAMIN D-3) 50 mcg (2,000 unit) cap Take 1 capsule by mouth once daily. Blood-Glucose Meter,Continuous (FREESTYLE MANGO 3 READER) [facility] Use to check blood [...] obtained within 48 hours of Surgery/Procedure. SIGNATURE: Trneton Amaral MD PATIENT NAME: Analilia Melendrez DATE: April 05, 2024 TIME: 11:39 AM CSN: [id number] Normal [facility] Colonoscopyon 04-05-2024 Colonoscopy [facility] Gastrointestinal Endoscopy Patient Name: Analilia Melendrez Procedure Date: 04/05/2024 12:31 PM Date of : 1960 Admit Type: Outpatient Age: 63 Room: [facility] Gender: Male Note Status: Finalized Attending MD: Phoebe Vazquez MD, [id number] Procedure: Colonoscopy Indications: Iron deficiency anemia Providers: [...] anesthesia care under the supervision of a BLAST FURNACE CHECKER was determined to be medically necessary for [...] was poor. Procedure Code(s): --- Professional --- 72337, Colonoscopy, flexible; diagnostic, including collection of specimen(s) by brushing or washing, when performed (separate procedure) Diagnosis Code(s): --- Professional --- D50.9, Iron deficiency anemia, unspecified K64.8, Other hemorrhoids CPT copyright 2020 [employer]. All rights reserved. The codes documented in this report are preliminary and upon engineering technology instructor review may be revised to meet current compliance requirements. Attending Participation: I personally performed the entire procedure. Scope In: 12:34:29 PM Scope Out: 12:51:09 PM MD Phoebe Fuchs MD 04/05/2024 12:56:42 PM This report has been signed electronically by Phoebe Vazquez MD Number of Addenda: 0 Note Initiated On: 04/05/2024 12:31 PM Estimated Blood Loss: Estimated blood loss was minimal. Normal [facility] EGD Study observation Meera petty 04-05-2024 [facility] Gastrointestinal Endoscopy Patient Name: Analilia Melendrez Procedure Date: 04/05/2024 12:04 PM Date of : 1960 Admit Type: Outpatient Age: 63 Room: [facility] Gender: Male Note Status: Finalized Attending MD: Phoebe Vazquez MD, [id number] Procedure: Upper GI endoscopy Indications: Iron deficiency anemia Providers: Phoebe Vazquez MD Patient Profile: Refer to note in patient chart for documentation of history and physical. Referring Physician: Susana Ramirez (Referring MD) Medicines: See the Anesthesia note for documentation of the administered medications Complications: No immediate complications. Requesting Provider: Procedure: Pre-Anesthesia Assessment: - Monitored anesthesia care under the supervision of a BLAST FURNACE CHECKER was determined to be medically necessary for [...] pathology results Procedure Code(s): --- Professional --- 08295, Esophagogastroduodenosc opy, flexible, transoral; with biopsy, single or multiple Diagnosis Code(s): --- Professional --- D50.9, Iron deficiency anemia, unspecified K22.89, Other specified disease of esophagus K31.89, Other diseases of stomach and duodenum CPT copyright 2020 [employer]. All rights reserved. The codes documented in this report are preliminary and upon engineering technology instructor review may be revised to meet current compliance requirements. Attending Participation: I personally performed the entire procedure. Scope In: 12:23:40 PM Scope Out: 12:29:35 PM MD Phoebe Fuchs MD 04/05/2024 12:33:21 PM This report has been signed electronically by Phoebe Vazquez MD Number of Addenda: 0 Note Initiated On: 04/05/2024 12:04 PM Estimated Blood Loss: Estimated blood loss was minimal. [facility] Radiology Study observation (narrative) [facility] Flexible sigmoidoscopy study on 04-05-2024 [facility] Gastrointestinal Endoscopy Patient Name: Analilia Melendrez Procedure Date: 04/05/2024 12:31 PM Date of : 1960 Admit Type: Outpatient Age: 63 Room: [facility] Gender: Male Note Status: Finalized Attending MD: Phoebe Vazquez MD, [id number] Procedure: Colonoscopy Indications: Iron deficiency anemia Providers: [...] anesthesia care under the supervision of a BLAST FURNACE CHECKER was determined to be medically necessary for [...] was poor. Procedure Code(s): --- Professional --- 28566, Colonoscopy, flexible; diagnostic, including collection of specimen(s) by brushing or washing, when performed (separate procedure) Diagnosis Code(s): --- Professional --- D50.9, Iron deficiency anemia, unspecified K64.8, Other hemorrhoids CPT copyright 2020 [employer]. All rights reserved. The codes documented in this report are preliminary and upon engineering technology instructor review may be revised to meet current compliance requirements. Attending Participation: I personally performed the entire procedure. Scope In: 12:34:29 PM Scope Out: 12:51:09 PM MD Phoebe Fuchs MD 04/05/2024 12:56:42 PM This report has been signed electronically by Phoebe Vazquez MD Number of Addenda: 0 Note Initiated On: 04/05/2024 12:31 PM Estimated Blood Loss: Estimated blood loss was minimal. [facility] Radiology Study observation (narrative) [facility] GLUCOSE, BLOOD (POC)on 04-05 Glucose [Mass/Vol] 198 mg/dL Abnormal 74 - 99 mg/dL [facility] Comment on above: Location:[address], [address] The Accu-Chek Inform II glucose meter has [...] Interpretation and review of laboratory results Abnormal [facility] HISTORY PHYSICALon HISTORY PHYSICAL HNO ID: [id number] Author: PHOEBE VAZQUEZ MD Service: General Surgery [...] [facility] / Outside records reviewed. Latest Ref [facility] 10/15/2023 WBC 3.70 - 11.00 k/uL [...] Abs Lymph 1.00 - 4.00 k/uL 1.82 [place]% % 11.0 Abs [place] <0.87 k/uL 0.51 [place]% % 0.0 Abs [...] ascending aorta repair Hyperlipidemia Hypertension Non-ST elevation CT (NSTEMI) (HCC) 06/24 Pacemaker Paroxysmal atrial fibrillation (HCC) RBBB (right bundle branch block) S/P aortic valve replacement [facility] mechanical Syncope Tachy-fernando syndrome (HCC) Tobacco abuse chronic Tobacco user Type 2 diabetes mellitus (HCC) PAST SURGICAL HISTORY PAST SURGICAL HISTORY Procedure Laterality Date ABD AORTIC ANEURYSM REPAIR ASCENDING AORTA GRAFT W/AORTIC ROOT COLONOSCOPY SCREENING In [place] CORONARY ARTERY BYPASS GRAFT HX 2016 2005 HEART CATHETERIZATION 06/24/2016 HEART VALVE REPLACEMENT 2017 Aortic x2 ;2015 HERNIA REPAIR HX PACEMAKER 06/25/2016 REPLACEMENT AORTIC VALVE W BYPASS Allergies: ALLERGIES ALLERGIES No Known Allergies Medications: CURRENT MEDICATIONS Insulin [place], Disposable, (BD ULTRA-FINE NORBERTO PEN NEEDLE) 32 [...] daily. Blood-Glucose Meter,Continuous (FREESTYLE MANGO 3 READER) [facility] Use to check blood [...] before eating. dicyc (more content not included)... [facility] Pathology biopsy report Jose Carlos (Tiss)on 04-05-2024 AP DISCLAIMER [facility] Comment on above: Order Comment: Speci men Type: TISSUE SPECIMEN [facility] Address: [address] [place] [address] Result Comment: Etienne Montano Test (LDT) Disclaimer: Performance characteristics of immunohistochemical, immunofluorescent, and chromogenic in-situ hybridization tests have been determined by the performing laboratory within [facility]'s Kye Jolene [facility] Pathology and Laboratory Medicine Department ([facility], [facility], [facility], [facility], [facility], [facility], or [facility]) in a manner consistent with CLIA requirements. [...] #### 6 6121-5 #### [facility] CLIA [id number] [address] [place] [address] LAB CLIA [id number] [address] [place] [address] CASE REPORT Normal [facility] Comment on above: Order Comment: Speci men Type: TISSUE SPECIMEN [facility] Address: [address] [place] [address] Result Comment: Surg [facility] Pathology Report Case: [id number] Authorizing Provider: Phoebe Vazquez MD Collected: 04/05/2024 12:25 PM Ordering Location: [facility] Endoscopy Received: 04/05/2024 02:20 PM Pathologist: Wilma Pham MD Specimens: A) - Small Bowel, Duodenum, Biopsy B) - Stomach, Biopsy, antrum C) - Esophagus, Mid, Biopsy D) - Esophagogastric Junction, Biopsy E) - Colon, Biopsy Performed By: #### 6 6121-5 #### [facility] CLIA [id number] [address] [place] [address] LAB CLIA [id number] [address] [place] [address] FINAL DIAGNOSIS Normal [facility] Comment on above: Order Comment: Speci men Type: TISSUE SPECIMEN [facility] Address: [address] [place] [address] Result Comment: A. S mall bowel, biopsy: [...] #### 6 6121-5 #### [facility] CLIA [id number] [address] [place] [address] [place] [facility] CLIA [id number] [address] [place] [address] [place] FINAL PERFORMING LAB Normal [facility] Comment on above: Order Comment: Speci men Type: TISSUE SPECIMEN [facility] Address: [address] [place] [address] Result Comment: Diag nostic interpretation performed at: [facility], [address] [place] [address] CLIA# [id number] Compensation Supervisor: Adriane Long MD Performed By: #### 6 6121-5 #### [facility] CLIA [id number] [address] [place] [address] [place] [facility] [facility] CLIA [id number] [address] [place] [address] [place] GROSS DESCRIPTION [facility] Comment on above: Order Comment: Speci men Type: TISSUE SPECIMEN [facility] Address: [address] [place] [address] Result Comment: A. S mall Bowel, Duodenum, [...] 0.2 cm. Totally submitted in one cassette. [facility] April 05, 2024 9:22 PM Gross examination performed at [facility], [address] [place] [address] Performed By: #### 6 6121-5 #### [facility] CLIA [id number] [place] [facility] CLIA [id number] [address] OF [facility] Upper GI endoscopyon 04-05- 025 Upper GI endoscopy [facility] Gastrointestinal Endoscopy Patient Name: Analilia Melendrez Procedure Date: 04/05/2024 12:04 PM Date of : 1960 Admit Type: Outpatient Age: 63 Room: [facility] Gender: Male Note Status: Finalized Attending MD: Phoebe Vazquez MD, [id number] Procedure: Upper GI endoscopy Indications: Iron deficiency anemia Providers: Phoebe Vazquez MD Patient Profile: Refer to note in patient chart for documentation of history and physical. Referring Physician: Susana Ramirez (Referring MD) Medicines: See the Anesthesia note for documentation of the administered medications Complications: No immediate complications. Requesting Provider: Procedure: Pre-Anesthesia Assessment: - Monitored anesthesia care under the supervision of a BLAST FURNACE CHECKER was determined to be medically necessary for [...] pathology results Procedure Code(s): --- Professional --- 89772, Esophagogastroduodenosc opy, flexible, transoral; with biopsy, single or multiple Diagnosis Code(s): --- Professional --- D50.9, Iron deficiency anemia, unspecified K22.89, Other specified disease of esophagus K31.89, Other diseases of stomach and duodenum CPT copyright 2020 [employer]. All rights reserved. The codes documented in this report are preliminary and upon engineering technology instructor review may be revised to meet current compliance requirements. Attending Participation: I personally performed the entire procedure. Scope In: 12:23:40 PM Scope Out: 12:29:35 PM MD Phoebe Fuchs MD 04/05/2024 12:33:21 PM This report has been signed electronically by Phoebe Vazquez MD Number of Addenda: 0 Note Initiated On: 04/05/2024 12:04 PM Estimated Blood Loss: Estimated blood loss was minimal. [facility] 03-31-2024 [facility] 03-29-2024 [facility] 03-24-2024 [facility] Telephone (MEPRAD) ANALILIA MELENDREZ ([id number]) 1960 M Date Time Provider Department 03/24/24 [...] Date Reviewed: 12/27/2023 Reviewed by: Marianna Wagner APRN.PHYSICAL THERAPIST TECHNICIAN - Fully Assessed Prescriptions as of 03/24/2024 [...] fourteen (14) days to upper arm. 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 Normal [facility] CNPN Normal [facility] HbA1c (Bld)on 03-14-2024 Average glucose Estimated from glycated hemoglobin (Bld) [Mass/Vol] 171 mg/dL Normal [facility] Comment on above: Order Comment: Speci men Type: BLOOD SPECIMENOrdering Facility: [facility] Address: [address] [place] [address] Result Comment: eAG: (Estimated average glucose) is a calculated value from HgbA1c and is outside sales representative of the average blood glucose level in the last 2-3 month period. Performed By: #### 5 5454-3 ####[facility] LABCLIA [id number] [place] [id number] [place] HbA1c (Bld) [Mass fraction] 7.6 % High 4.3-5.6 [facility] Comment on above: Order Comment: Speci men Type: BLOOD SPECIMENOrdering Facility: [facility] Address: [address] [place] [address] Result Comment: [place] Diabetes Association guidelines indicate that patients with HgbA1c in the range 5.7-6.4% are at increased risk for development of diabetes, and intervention by lifestyle modification may be beneficial. HgbA1c greater or equal to 6.5% is considered diagnostic of diabetes. Performed By: #### 5 5454-3 ####[facility] LABCLIA [id number] [address] [place] Cat[place] 03-13-2024 [facility] Telephone (AGFAMPLE) ANALILIA MELENDREZ ([id number]) 1960 M Date Time Provider Department 03/13/24 [...] He had to cancel his appointment at [place] and they will call him tomorrow with a reschedule at [facility]. Allergies As of Date: 03/13/2024 (No Known Allergies) Date Reviewed: 12/27/2023 Reviewed by: Marianna Wagner APRN.PHYSICAL THERAPIST TECHNICIAN - Fully Assessed Reason for Visit: Patient Question [8647] Prescriptions as of 03/14/2024 - atorvastatin (LIPITOR) [...] fourteen (14) days to upper arm. - ztzxfo-qezxxfja-omvmyls (CREON 36) 36,000-114,000- 180,000 unit delayed release capsule Take 2 pills by mouth with first bite of meal and take 1 pill with snacks. Max 10 per day. - Cholecalciferol, Vitamin D3, (VITAMIN D-3) 50 mcg (2,000 unit) cap Take 1 capsule by mouth once daily. 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 Normal [facility] CNPNon 02-21-2024 CNPN Telephone (AGFAMPLE) ANALILIA MELENDREZ ([id number]) 1960 M Date Time Provider Department 02/21/24 [...] Date Reviewed: 12/27/2023 Reviewed by: Marianna Wagner APRN.PHYSICAL THERAPIST TECHNICIAN - Fully Assessed Reason for Visit: Patient Question [1187] Prescriptions as of 02/21/2024 - pantoprazole DR [...] fourteen (14) days to upper arm. 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/2017 Chronic pancreatitis (HCC) [K86.1] 08/09/2023 Calcium [...] uncomplicated* 7 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] 05/20/2023 jail (current) use of insulin (HCC) [Z79.4]01/03/2017 Pansystolic murmur [R01.1] 08/09/2023 Unspecified severe protein-calorie malnutrition*05/20/2023 Encounter Status:Closed by GIULIA ROGEL on 02/21/24 [facility] CNPChanel 02-16-2024 [facility] Telephone (AGFAMPLE) ANALILIA MELENDREZ ([id number]) 1960 M Date Time Provider Department 02/16/24 [...] Date Reviewed: 12/27/2023 Reviewed by: Marianna Wagner APRN.PHYSICAL THERAPIST TECHNICIAN - Fully Assessed Reason for Visit: Lab Orders [3148] Prescriptions as of 03/03/2024 - pantoprazole DR [...] fourteen (14) days to upper arm. 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 01-14-2024 [facility] 12-31-2023 [facility] CNOVon 12-27-2023 CNOV Office Visit (DALJIT CALL) SAURAVANALILIA LANDAVERDE ([id number]) 1960 Date Time Provider Department 12/27/23 2:00 PM MARIANNA WAGNER During your visit today, we recorded the following information about you: Temperature Pulse Respiration Blood pressure 97.8 degrees 75/minute 16/minute 126/70 Weight Height 61.7 kg 1.803 m Marianna Wagner APRN.[facility] 01/08/2024 8:36 PM Signed CHIEF COMPLAINT: [...] Got it through a diabetic clinic in [facility] has been refilling it for him [...] lbs. Was 165 lbs prior to the skilled nursing in June. Has frequent nausea and vomiting. Has a low appetite Unsure of what his last A1C was BS are either really high or low. Has a freestyle mango. Taking Lantus insulin. No meal time insulin. Taking Farxiga and Metformin (has been on that for awhile). Was supposed to follow with a package checker Hx of aortic valve replacement Had a congenital aortic aneurysm Has a pacemaker Has had heart attack He is not following with any specialists right now. States he either had a seizure or stroke and was placed in the hospital and then went to a skilled nursing for 5 weeks. 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 Started smoking [...] repair Hyperlipidemia (more content not included)... Normal [facility] CNOVon 12-24-2023 CNOV Normal [facility] Catia 12-16-2023 [facility] Telephone (AGFAMPLE) DARRINANALILIA VERNON ([id number]) 1960 M Date Time Provider Department 12/16/23 MARIANNA WAGNER During your visit today, we recorded the following information about you: Suzi Haynes MA 12/16/2023 5:04 PM Signed ----- Message from Marianna Wagner APRN.PHYSICAL THERAPIST TECHNICIAN sent at 12/15/2023 6:32 PM EST ----- [...] [95] Prescriptions as of 12/16/2023 - Insulin [place], Disposable, (BD ULTRA-FINE NORBERTO PEN NEEDLE) 32 [...] 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 [facility] ALLIED HEALTHon 12-08-2023 ALLIED HEALTH HNO ID: [id number] Author: ANNY DURHAM CT Service: Radiology Author [...] PATIENT PRESENTS WITH AN IMPLANTABLE OR ATTACHED ENERGY ADMINISTRATOR: No RADIOLOGY DEPARTMENT: CT; Exam(s) Completed: Pancreas PERIPHERAL IV DATA: Site assessment: Clean,Dry and Intact, Site disposition Discontinued SIGNED BY: KIRA Thomas December 08, 2023 10:57 AM [facility] CT PANCREAS W IVCONon 2023 CT PANCREAS W IVCON * * *Final Report* * * DATE OF EXAM: Dec 08 2023 11:00AM [facility] - CT PANCREAS W IVCON / [...] at least 2017. No identifiable pancreatic mass. Historical Manuscripts Curator: PSCB Transcribe Date/Time: Dec 15 2023 10:26A Dictated by : SULEMAN SANCHEZ MD This examination was interpreted and the report reviewed and electronically signed by: SULEMAN SANCHEZ MD on Dec 15 2023 10:37AM EST [id number] [facility] NURSING PROGon 12-08-2023 NURSING PROG HNO ID: [id number] Author: SIGRID MATA RN Service: Radiology Author [...] DATE: December 08, 2023 TIME: 10:42 AM [facility] 12-07-2023 SAYRA Telephone (KI) ANALILIA MELENDREZ ([id number]) 1960 M Date Time Provider Department 12/07/23 [...] pancreatitis type [K85.90] Order(s):CT PANCREAS W IVCON [[id number]] Order #: [id number] FUTURE iv contrast (will be provided with [...] CT contrast administration guidelines link. 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 [facility] CNPN Telephone (AGFAMPLE) ANALILIA MELENDREZ ([id number]) 1960 M Date Time Provider Department 11/25/23 MARIANNA WAGNER During your visit today, we recorded the following information about you: Twyla Espana 11/25/2023 12:59 PM Signed Denial: CPT 28157-RP PANCREAS W IVCON Denial Type: Payer Clinical [...] Yes Peer to Peer Deadline: 11/30/2023 Insurance Case#[id number] Peer to Peer opt 2 (enter tracking#) / opt 1 Denial sent to providers email Marianna Wagner APRN.CNP 11/29/2023 12:17 PM Signed Completed peer to peer for CT pancreas with IV contrast and obtained approval. # [id number] until 11/30/2023-12/31/2023 He is scheduled tomorrow for the CT. Spoke with Dr. Murillo with [facility] for reference. 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 Normal [facility] 11-16-2023 CNPN Telephone (AGFAMPLE) ANALILIA MELENDREZ ([id number]) 1960 M Date Time Provider Department 11/16/23 MARIANNA WAGNER During your visit today, we recorded the following information about you: Suzi Haynes MA 11/16/2023 2:33 PM Signed Patient left message stating he saw the low altitude air defense gunner yesterday and they are very worried about his stomach and wants him to be seen by GI sooner than 12/24/23. Patient states he has called and they cannot see him any sooner and wanted to know if there was anything Marianna could do. Please advise. FLORENTINO Jackson Brittny A, APRN.PHYSICAL THERAPIST TECHNICIAN 11/16/2023 3:07 PM Signed I have already [...] the wait list. Carolinasonja NeilJigna Marianna Wagner APRN.PHYSICAL THERAPIST TECHNICIAN 11/16/2023 4:49 PM Signed Please let the [...] - Blood-Glucose Meter,Continuous (FREESTYLE MANGO 3 READER) [facility] [place] Use to check blood [...] tablet by mouth once daily. 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 Normal [facility] 11-07-2023 SAYRA Telephone (AGFAMPLE) ANALILIA MELENDREZ ([id number]) 1960 M Date Time Provider Department 11/07/23 [...] Date Reviewed: 10/14/2023 Reviewed by: Marianna Wagner APRN.PHYSICAL THERAPIST TECHNICIAN - Fully Assessed Reason for Visit: Results [95] Orders [681] Primary Visit Diagnosis:Diarrhea, unspecified type [R19.7] Other Visit Diagnosis:Acute pancreatitis, unspecified complication status, unspecified pancreatitis type [K85.90] Order(s):CT PANCREAS W IVCON [[id number]] Order #: [id number] FUTURE Prescriptions as of 11/09/2023 - metFORMIN (GLUCOPHAGE) 500 mg tablet Take 1 tablet by mouth daily with breakfast. - Cholecalciferol, Vitamin D3, (VITAMIN D-3) 50 mcg (2,000 unit) cap Take 1 capsule by mouth once daily. - ferrous sulfate 325 mg (65 mg iron) tablet Take 1 tablet by mouth once daily. - Blood-Glucose Meter,Continuous (FREESTYLE MANGO 3 READER) [facility] [place] Use to check blood [...] tablet by mouth once daily. 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 Normal [facility] .Auto Diffon 10-30-2023 Basophil, Absolute 0.1 10 3/mcL Normal 0.0-0.2 [facility] Comment on above: Performed By: #### A NITESH, ALC, MORPH, ACETA, CBC, LIP, ADIFF, TROPHS, MG, MDW, CMP, NICOLLE, GFR #### [address] [address] Basophils/100 WBC (Bld) 1.3 % Normal 0.0-2.5 [facility] Comment on above: Performed By: #### A NITESH, ALC, MORPH, ACETA, CBC, LIP, ADIFF, TROPHS, MG, MDW, CMP, NICOLLE, GFR #### [address] [address] Eosinophil, Absolute 0.0 10 3/mcL Normal 0.0-0.7 [facility] Comment on above: Performed By: #### A NITESH, ALC, MORPH, ACETA, CBC, LIP, ADIFF, TROPHS, MG, MDW, CMP, NICOLLE, GFR #### [address] [address] Eosinophils/100 WBC (Bld) 0.3 % Normal 0.0-7.0 [facility] Comment on above: Performed By: #### A NITESH, ALC, MORPH, ACETA, CBC, LIP, ADIFF, TROPHS, MG, MDW, CMP, NICOLLE, GFR #### [address] [address] Lymphocyte, Absolute 1.3 10 3/mcL Normal 0.9-4.3 [facility] Comment on above: Performed By: #### A NITESH, ALC, MORPH, ACETA, CBC, LIP, ADIFF, TROPHS, MG, MDW, CMP, NICOLLE, GFR #### [address] [address] Lymphocytes/100 WBC (Bld) 24.0 % Normal 20.0-40.0 [facility] Comment on above: Performed By: #### A NITESH, ALC, MORPH, ACETA, CBC, LIP, ADIFF, TROPHS, MG, MDW, CMP, NICOLLE, GFR #### [address] [address] Monocyte, Absolute 0.4 10 3/mcL Normal 0.1-1.4 [facility] Comment on above: Performed By: #### A NITESH, ALC, MORPH, ACETA, CBC, LIP, ADIFF, TROPHS, MG, MDW, CMP, NICOLLE, GFR #### [address] [address] Monocytes/100 WBC (Bld) 7.2 % Normal 2.0-13.0 [facility] Comment on above: Performed By: #### A NITESH, ALC, MORPH, ACETA, CBC, LIP, ADIFF, TROPHS, MG, MDW, CMP, NICOLLE, GFR #### [address] [address] Neutrophils/100 WBC (Bld) 67.2 % Normal 50.0-75.0 [facility] Comment on above: Performed By: #### A NITESH, ALC, MORPH, ACETA, CBC, LIP, ADIFF, TROPHS, MG, MDW, CMP, NICOLLE, GFR #### [address] [address] .GFRon 10-30-2023 GFR Non- 51 ml/min/1.73sqm Normal [facility] Comment on above: Result Comment: GFR Population [...] TROPHS, MG, MDW, CMP, NICOLLE, GFR #### [address] [address] GFR 61 ml/min/1.73sqm Normal [facility] Comment on above: Result Comment: GFR Population [...] TROPHS, MG, MDW, CMP, NICOLLE, GFR #### [address] [place], [place] [address] .Navin 10-30-2023 Monocyte Distribution Width 16.35 Normal 0.00-20.00 [facility] Comment on above: Result Comment: For ED adult patients suspected of sepsis, MDW<=20.0 does not rule out sepsis or risk of sepsis Performed By: #### A NITESH, ALC, MORPH, ACETA, CBC, LIP, ADIFF, TROPHS, MG, MDW, CMP, NICOLLE, GFR #### [address] [address] .Morphon 10-30-2023 Macrocytosis 2+ Normal [facility] Comment on above: Performed By: #### A NITESH, ALC, MORPH, ACETA, CBC, LIP, ADIFF, TROPHS, MG, MDW, CMP, NICOLLE, GFR #### [place] [address] Platelet Estimate Normal Normal [facility] Comment on above: Performed By: #### A NITESH, ALC, MORPH, ACETA, CBC, LIP, ADIFF, TROPHS, MG, MDW, CMP, NICOLLE, GFR #### [place] [address] .NEUABSon 10-30-2023 Neutrophil, Absolute 3.6 10 3/mcL Normal 2.3-8.1 [facility] Comment on above: Performed By: #### A NITESH, ALC, MORPH, ACETA, CBC, LIP, ADIFF, TROPHS, MG, MDW, CMP, NICOLLE, GFR #### [place] [address] ACETAon 10-30-2023 Acetaminophen [Mass/Vol] 27.4 ug/mL Normal 10.0-30.0 [facility] Comment on above: Performed By: #### A NITESH, ALC, MORPH, ACETA, CBC, LIP, ADIFF, TROPHS, MG, MDW, CMP, NICOLLE, GFR #### [place] [address] Keren 10-30-2023 Ethanol Level <3 Normal 0-3 [facility] Comment on above: Performed By: #### A NITESH, ALC, MORPH, ACETA, CBC, LIP, ADIFF, TROPHS, MG, MDW, CMP, NICOLLE, GFR #### [address] [address] CBCon 10-30-2023 Erythrocyte distribution width (RBC) [Ratio] 14.8 % Normal 11.5-15.5 [facility] Comment on above: Performed By: #### A NITESH, ALC, MORPH, ACETA, CBC, LIP, ADIFF, TROPHS, MG, MDW, CMP, NICOLLE, GFR #### [place] [address] Hematocrit (Bld) [Volume fraction] 28.5 % Low 40.0-52.0 [facility] Comment on above: Performed By: #### A NITESH, ALC, MORPH, ACETA, CBC, LIP, ADIFF, TROPHS, MG, MDW, CMP, NICOLLE, GFR #### [place] [address] Hgb 9.8 G/dL Low 13.0-17.5 [facility] Comment on above: Performed By: #### A NITESH, ALC, MORPH, ACETA, CBC, LIP, ADIFF, TROPHS, MG, MDW, CMP, NICOLLE, GFR #### [place] [address] MCH (RBC) [Entitic mass] 38.1 pg High 27.0-33.0 [facility] Comment on above: Performed By: #### A NITESH, ALC, MORPH, ACETA, CBC, LIP, ADIFF, TROPHS, MG, MDW, CMP, NICOLLE, GFR #### [place] [address] MCHC 34.5 G/dL Normal 32.0-36.0 [facility] Comment on above: Performed By: #### A NITESH, ALC, MORPH, ACETA, CBC, LIP, ADIFF, TROPHS, MG, MDW, CMP, NICOLLE, GFR #### [place] [address] MCV (RBC) [Entitic vol] 110.2 fL High 81.0-100.0 [facility] Comment on above: Performed By: #### A NITESH, ALC, MORPH, ACETA, CBC, LIP, ADIFF, TROPHS, MG, MDW, CMP, NICOLLE, GFR #### [address] [address] Platelet 176 10 3/mcL Normal 150-450 [facility] Comment on above: Performed By: #### A NITESH, ALC, MORPH, ACETA, CBC, LIP, ADIFF, TROPHS, MG, MDW, CMP, NICOLLE, GFR #### [address] [address] Platelet mean volume (Bld) [Entitic vol] 8.8 fL Normal 6.4-10.5 [facility] Comment on above: Performed By: #### A NITESH, ALC, MORPH, ACETA, CBC, LIP, ADIFF, TROPHS, MG, MDW, CMP, NICOLLE, GFR #### [address] [address] RBC 2.58 10 6/mcL Low 4.50-6.00 [facility] Comment on above: Performed By: #### A NITESH, ALC, MORPH, ACETA, CBC, LIP, ADIFF, TROPHS, MG, MDW, CMP, NICOLLE, GFR #### [address] [address] WBC 5.3 10 3/mcL Normal 4.5-10.8 [facility] Comment on above: Performed By: #### A NITESH, ALC, MORPH, ACETA, CBC, LIP, ADIFF, TROPHS, MG, MDW, CMP, NICOLLE, GFR #### [address] [address] CMPon 10-30-2023 Albumin Level 1.9 G/dL Low 3.4-4.8 [facility] Comment on above: Performed By: #### A NITESH, ALC, MORPH, ACETA, CBC, LIP, ADIFF, TROPHS, MG, MDW, CMP, NICOLLE, GFR #### [address] [address] Albumin/Globulin [Mass ratio] 0.6 {ratio} Low 1.1-2.5 [facility] Comment on above: Performed By: #### A NITESH, ALC, MORPH, ACETA, CBC, LIP, ADIFF, TROPHS, MG, MDW, CMP, NICOLLE, GFR #### [place] [address] ALP [Catalytic activity/Vol] 105 U/L Normal 40-135 [facility] Comment on above: Performed By: #### A NITESH, ALC, MORPH, ACETA, CBC, LIP, ADIFF, TROPHS, MG, MDW, CMP, NICOLLE, GFR #### [place] [address] ALT [Catalytic activity/Vol] 19 U/L Normal 16-63 [facility] Comment on above: Performed By: #### A NITESH, ALC, MORPH, ACETA, CBC, LIP, ADIFF, TROPHS, MG, MDW, CMP, NICOLLE, GFR #### [place] [address] AST [Catalytic activity/Vol] 45 U/L High 10-40 [facility] Comment on above: Performed By: #### A NITESH, ALC, MORPH, ACETA, CBC, LIP, ADIFF, TROPHS, MG, MDW, CMP, NICOLLE, GFR #### [place] [address] Bili Total 0.2 mg/dL Normal 0.2-1.0 [facility] Comment on above: Result Comment: Use of this assay is not recommended for patients undergoing treatment with eltrombopag due to the potential for falsely elevated results. Performed By: #### A NITESH, ALC, MORPH, ACETA, CBC, LIP, ADIFF, TROPHS, MG, MDW, CMP, NICOLLE, GFR #### [place] [address] BUN/Creatinine Ratio 9 ratio Normal 7-27 [facility] Comment on above: Performed By: #### A NITESH, ALC, MORPH, ACETA, CBC, LIP, ADIFF, TROPHS, MG, MDW, CMP, NICOLLE, GFR #### [id number] Calcium [Mass/Vol] 7.9 mg/dL Low 8.4-10.2 [facility] Comment on above: Performed By: #### A NITESH, ALC, MORPH, ACETA, CBC, LIP, ADIFF, TROPHS, MG, MDW, CMP, NICOLLE, GFR #### [address] [address] Chloride [Moles/Vol] 103 mmol/L Normal 98-107 [facility] Comment on above: Performed By: #### A NITESH, ALC, MORPH, ACETA, CBC, LIP, ADIFF, TROPHS, MG, MDW, CMP, NICOLLE, GFR #### [place] [address] CO2 [Moles/Vol] 36 mmol/L High 23-31 [facility] Comment on above: Performed By: #### A NITESH, ALC, MORPH, ACETA, CBC, LIP, ADIFF, TROPHS, MG, MDW, CMP, NICOLLE, GFR #### [address] [address] Creatinine [Mass/Vol] 1.42 mg/dL High 0.70-1.30 [facility] Comment on above: Result Comment: Test ing performed on Siemens Dimension EXL analyzer using a modified kinetic Michael technique. Performed By: #### A NITESH, ALC, MORPH, ACETA, CBC, LIP, ADIFF, TROPHS, MG, MDW, CMP, NICOLLE, GFR #### [place] [address] Electrolyte Balance 5.0 mEq/L Normal 4.0-15.0 [facility] Comment on above: Performed By: #### A NITESH, ALC, MORPH, ACETA, CBC, LIP, ADIFF, TROPHS, MG, MDW, CMP, NICOLLE, GFR #### [place] [address] Globulin 3.2 G/dL Normal [facility] Comment on above: Performed By: #### A NITESH, ALC, MORPH, ACETA, CBC, LIP, ADIFF, TROPHS, MG, MDW, CMP, NICOLLE, GFR #### [address] [address] Glucose [Mass/Vol] 141 mg/dL High 80-115 [facility] Comment on above: Performed By: #### A NITESH, ALC, MORPH, ACETA, CBC, LIP, ADIFF, TROPHS, MG, MDW, CMP, NICOLLE, GFR #### [address] [address] Potassium [Moles/Vol] 3.5 mmol/L Normal 3.5-5.1 [facility] Comment on above: Performed By: #### A NITESH, ALC, MORPH, ACETA, CBC, LIP, ADIFF, TROPHS, MG, MDW, CMP, NICOLLE, GFR #### [address] [address] Sodium [Moles/Vol] 144 mmol/L Normal 136-145 [facility] Comment on above: Performed By: #### A NITESH, ALC, MORPH, ACETA, CBC, LIP, ADIFF, TROPHS, MG, MDW, CMP, NICOLLE, GFR #### [address] [address] Total Protein 5.1 G/dL Low 6.4-8.2 [facility] Comment on above: Performed By: #### A NITESH, ALC, MORPH, ACETA, CBC, LIP, ADIFF, TROPHS, MG, MDW, CMP, NICOLLE, GFR #### [address] [address] Urea nitrogen [Mass/Vol] 13 mg/dL Normal 7-18 [facility] Comment on above: Performed By: #### A NITESH, ALC, MORPH, ACETA, CBC, LIP, ADIFF, TROPHS, MG, MDW, CMP, NICOLLE, GFR #### [address] [address] [address] ABD/PELVIS W/ IV CONTRAST ONLYon 10-30-2023 [...] 10/30/2023 5:39:58 PM Ordering Provider: ANN-MARIE DILLON [facility] CT HEAD OR BRAIN W/O SHAWN [...] 10/30/2023 5:19:12 PM Ordering Provider: ANN-MARIE White [facility]dered By: Jaspal Calix on 10-30-2023 Amphetamines [...] ng/L Male: 0-76 ng/L Testing performed on [employer] using a homogeneous sandwich chemiluminescent immunoassay based on [employer] technology. Urea nitrogen [Mass/Vol] 13 mg/dL Normal 7 - 18 mg/dL AO ADM SS Urea nitrogen/Creatinine [Mass ratio] 9 ratio Normal 7 - 27 ratio AO ADM SS WBC (Bld) [#/Vol] 5.3 103/mcL Normal 4.5 - 10.8 10^3/mcL AO Workflow SS LIPon 10-30-2023 Lipase Level <6 Low 16-77 [facility] Comment on above: Performed By: #### A NITESH, ALC, MORPH, ACETA, CBC, LIP, ADIFF, TROPHS, MG, MDW, CMP, NICOLLE, GFR #### [address] [address] MGon 10-30-2023 Magnesium [Mass/Vol] 1.9 mg/dL Normal 1.8-2.4 [facility] Comment on above: Performed By: #### A NITESH, ALC, MORPH, ACETA, CBC, LIP, ADIFF, TROPHS, MG, MDW, CMP, NICOLLE, GFR #### [address] [address] SALon 10-30-2023 Salicylate Level 12.1 mg/dL Normal 2.8-20.0 [facility] Comment on above: Performed By: #### A NITESH, ALC, MORPH, ACETA, CBC, LIP, ADIFF, TROPHS, MG, MDW, CMP, NICOLLE, GFR #### [address] [address] TROPHSon 10-30-2023 High Sensitivity Troponin I 26 ng/L Normal 0-76 [facility] Comment on above: Result Comment: High Sensitive Troponin I Reference Ranges: Female: 0-51 ng/L Male: 0-76 ng/L Testing performed on [employer] using a homogeneous sandwich chemiluminescent immunoassay based on [employer] technology. Performed By: #### A NITESH, ALC, MORPH, ACETA, CBC, LIP, ADIFF, TROPHS, MG, MDW, CMP, NICOLLE, GFR #### [place] [address] UAon 10-30-2023 Color (U) Yellow Normal [facility] Comment on above: Performed By: #### A NITESH, ALC, MORPH, ACETA, CBC, LIP, ADIFF, TROPHS, MG, MDW, CMP, NICOLLE, GFR #### [place] [address] Glucose (U) [Mass/Vol] 500 mg/dL Abnormal Negative [facility] Comment on above: Performed By: #### A NITESH, ALC, MORPH, ACETA, CBC, LIP, ADIFF, TROPHS, MG, MDW, CMP, NICOLLE, GFR #### [place] [address] Ketones Ql (U) Negative Normal Negative [facility] Comment on above: Performed By: #### A NITESH, ALC, MORPH, ACETA, CBC, LIP, ADIFF, TROPHS, MG, MDW, CMP, NICOLLE, GFR #### [place] [address] UA Appear Clear Normal Clear [facility] Comment on above: Performed By: #### A NITESH, ALC, MORPH, ACETA, CBC, LIP, ADIFF, TROPHS, MG, MDW, CMP, NICOLLE, GFR #### [place] [address] UA Blood Negative Normal Negative [facility] Comment on above: Performed By: #### A NITESH, ALC, MORPH, ACETA, CBC, LIP, ADIFF, TROPHS, MG, MDW, CMP, NICOLLE, GFR #### [place] [address] UA Leuk Est Negative Normal Negative [facility] Comment on above: Performed By: #### A NITESH, ALC, MORPH, ACETA, CBC, LIP, ADIFF, TROPHS, MG, MDW, CMP, NICOLLE, GFR #### [place] [address] UA Nitrite Negative Normal Negative [facility] Comment on above: Performed By: #### A NITESH, ALC, MORPH, ACETA, CBC, LIP, ADIFF, TROPHS, MG, MDW, CMP, NICOLLE, GFR #### [place] [address] UA pH >=9.0 Normal [facility] Comment on above: Performed By: #### A NITESH, ALC, MORPH, ACETA, CBC, LIP, ADIFF, TROPHS, MG, MDW, CMP, NICOLLE, GFR #### [place] [address] UA Protein Negative Normal Negative [facility] Comment on above: Performed By: #### A NITESH, ALC, MORPH, ACETA, CBC, LIP, ADIFF, TROPHS, MG, MDW, CMP, NICOLLE, GFR #### [place] [address] UA Spec Grav 1.015 Normal 1.015-1.025 [facility] Comment on above: Performed By: #### A NITESH, ALC, MORPH, ACETA, CBC, LIP, ADIFF, TROPHS, MG, MDW, CMP, NICOLLE, GFR #### [place] [address] UA Specimen Type Not Given Normal [facility] Comment on above: Performed By: #### A NITESH, ALC, MORPH, ACETA, CBC, LIP, ADIFF, TROPHS, MG, MDW, CMP, NICOLLE, GFR #### [place] [address] UA Urobilinogen 0.2 E.U./dL Normal 0.2-1.0 [facility] Comment on above: Performed By: #### A NITESH, ALC, MORPH, ACETA, CBC, LIP, ADIFF, TROPHS, MG, MDW, CMP, NICOLLE, GFR #### [place] [address] Urobilinogen (U) [Mass/Vol] Negative Normal Negative [facility] Comment on above: Performed By: #### A NITESH, ALC, MORPH, ACETA, CBC, LIP, ADIFF, TROPHS, MG, MDW, CMP, NICOLLE, GFR #### [place] [address] UDRUGon 10-30-2023 Amphetamine (u) Negative Normal Negative [facility] Comment on above: Performed By: #### A NITESH, ALC, MORPH, ACETA, CBC, LIP, ADIFF, TROPHS, MG, MDW, CMP, NICOLLE, GFR #### [place] [address] Barbiturate (u) Negative Normal Negative [facility] Comment on above: Performed By: #### A NITESH, ALC, MORPH, ACETA, CBC, LIP, ADIFF, TROPHS, MG, MDW, CMP, NICOLLE, GFR #### [place] [address] Benzodiazepine (u) Negative Normal Negative [facility] Comment on above: Performed By: #### A NITESH, ALC, MORPH, ACETA, CBC, LIP, ADIFF, TROPHS, MG, MDW, CMP, NICOLLE, GFR #### [place] [address] Cannabinoid (u) Negative Normal Negative [facility] Comment on above: Performed By: #### A NITESH, ALC, MORPH, ACETA, CBC, LIP, ADIFF, TROPHS, MG, MDW, CMP, NICOLLE, GFR #### [place] [address] Cocaine Ql (U) Negative Normal Negative [facility] Comment on above: Performed By: #### A NITESH, ALC, MORPH, ACETA, CBC, LIP, ADIFF, TROPHS, MG, MDW, CMP, NICOLLE, GFR #### [address] [address] Methadone Ql (U) Negative Normal Negative [facility] Comment on above: Performed By: #### A NITESH, ALC, MORPH, ACETA, CBC, LIP, ADIFF, TROPHS, MG, MDW, CMP, NICOLLE, GFR #### [address] [address] Opiate (u) Negative Normal Negative [facility] Comment on above: Performed By: #### A NITESH, ALC, MORPH, ACETA, CBC, LIP, ADIFF, TROPHS, MG, MDW, CMP, NICOLLE, GFR #### [address] [address] PCP (u) Negative Normal Negative [facility] Comment on above: Performed By: #### A NITESH, ALC, MORPH, ACETA, CBC, LIP, ADIFF, TROPHS, MG, MDW, CMP, NICOLLE, GFR #### [place] [address] Urine Drugs screened: See Below Normal [facility] Comment on above: Result Comment: This drug [...] TROPHS, MG, MDW, CMP, NICOLLE, GFR #### [address] [address] XR CHEST 1 VIEWon 10-30-2023 XR CHEST [...] 10/30/2023 5:23:53 PM Ordering Provider: ANN-MARIE DILLON [facility] CT Abdomen and Pelvis WO con trastOrdered By: [facility] Provider on 10-21-2023 Interpretation and review of laboratory results Abnormal [facility] Radiology Result ACTIONABLE Abnormal [facility] Comment on above: This report contains [...] contact your provider for the next steps. [facility] CT Abdomen and Pelvis WO [...] be communicated with the ordering provider via [employer] staff message or phone message by [employer] within 2 business days of report finalization. --END OF FINDING-- Historical Manuscripts Curator: PSCB Transcribe Date/Time: Oct 21 2023 3:19P Dictated by : JOSSELIN CASTELAN MD This examination was interpreted and the report reviewed and electronically signed by: JOSSELIN CASTELAN MD on Oct 21 2023 3:31PM [facility] DIVISION OF RADIOLOGY * * *Final Report* * * DATE OF EXAM: Oct 21 2023 2:47PM [facility] 0531 - CT ABD/PEL WO IVCON [...] No additional findings. DIVISION OF RADIOLOGY Provider, [facility] - 10/21/2023 * * *Final Report* * * DATE OF EXAM: Oct 21 2023 2:47PM [facility] 0531 - CT ABD/PEL WO IVCON [...] be communicated with the ordering provider via [employer] staff message or phone message by [employer] within 2 business days of report finalization. --END OF FINDING-- Historical Manuscripts Curator: SIGRID Transcribe Date/Time: Oct 21 2023 3:19P Dictated by : JOSSELIN CASTELAN MD This examination was interpreted and the report reviewed and electronically signed by: JOSSELIN CASTELAN MD on Oct 21 2023 3:31PM EST [facility] Radiology Study observation (narrative) [facility] 10-17-2023 SAYRA Telephone (KI) ANALILIA MELENDREZ ([id number]) 1960 M Date Time Provider Department 10/17/23 MARIANNA WAGNER During your visit today, we recorded the following information about you: Marianna Wagner APRN.[facility] 10/17/2023 2:34 PM Signed Stool positive [...] the CT. Per conversation with Marianna Wagner PHYSICAL THERAPIST TECHNICIAN advised patient not to change GI appointment, left message for [facility] radiology to move patient's CT appointment. 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 difficile diarrhea [A04.72] E. coli UTI [N39.0, B96.20] Order(s):CONSULT TO HEMATOLOGY [9014] Order #: [id number]: 1 FUTURE vancomycin (VANCOCIN) 125 mg capsuleTake [...] - Blood-Glucose Meter,Continuous (FREESTYLE MANGO 3 READER) [facility] [place] Use to check blood [...] tablet by mouth once daily. - Insulin [place], Disposable, (NORBERTO PEN NEEDLE) 32 gauge x [...] (HCC) [I71.9] 08/09/2023 Atherosclerotic heart disease of [place] coronar*01/03/2017 Chronic pancreatitis (HCC) [K86 (more content not included)... [facility] ALBUMIN/CREATININE RATIO, UR INEon 10-16-2023 Albumin DL <= 20 mg/L (U) [Mass/Vol] 135.3 mg/L [facility] Albumin/Creatinine (U) [Mass ratio] 359 mg/g High NINF - 30 mg/g [facility] Comment on above: Adult Male [...] [Mass/Vol] 37.7 mg/dL 20.0 - 300.0 mg/dL [facility] Interpretation and review of laboratory results Abnormal [facility] Urinalysis complete panel (U )on 10-15-2023 Bacteria uL 1095.3 uL High Negative [facility] Bilirubin Ql (U) Negative Negative [facility] Clarity (Unsp spec) Turbid Abnormal Clear [facility] Color (U) Yellow Yellow [facility] Epithelial cells LM.HPF (Urine sed) [#/Area] None Seen /HPF [facility] Glucose Test strip (U) [Mass/Vol] 3+ Abnormal Negative [facility] Hemoglobin Ql (U) 1+ Abnormal Negative [facility] Hyaline casts (Urine sed) [#/Area] 0 /[LPF] 0 /LPF [facility] Interpretation and review of laboratory results Abnormal [facility] Ketones Ql (U) Negative Negative [facility] Leukocyte esterase Test strip Ql (U) 2+ Abnormal Negative [facility] Nitrite Ql (U) Negative Negative [facility] pH (U) 8.0 [pH] NINF - 8.5 [facility] Protein (U) [Mass/Vol] 1+ Abnormal Negative [facility] RBC LM.HPF (Urine sed) [#/Area] 6-10 /HPF Abnormal 0-2 /HPF [facility] Specific gravity (U) [Rel density] 1.020 1.005 - 1.030 [facility] Urobilinogen Ql (U) 0.2 EU/dL 0.2-1.0 EU/dL [facility] WBC LM.HPF (Urine sed) [#/Area] /[HPF] Abnormal 0-5 /HPF [facility] This test was bhavesh lynn and its performance characteristics determined by [facility] Path[facility] and Laboratory Medicine [place] (-PLMI). It has not been cleared or approved by the FDA. -[facility] is regulated under CLIA as qualified to perform high-complexity testing. This test is used for clinical purposes. It should not be regarded as investigational or for research. [facility] CNOVon 10-14-2023 CNOV Office Visit (AGFAMP OVIDIO) ANALILIA MELENDREZ ([id number]) 1960 M Date Time Provider Department 10/14/23 11:20 AM MARIANNA WAGNER During your visit today, we recorded the following information about you: Temperature Pulse Respiration Blood pressure 97.6 degrees 60/minute 18/minute 122/70 Weight Height 61.2 kg 1.803 m Marianna Wagner APRN.PHYSICAL THERAPIST TECHNICIAN 10/19/2023 1:25 PM Addendum CHIEF COMPLAINT: Analilia [...] lbs. Was 165 lbs prior to the skilled nursing in June. Has frequent nausea and vomiting. Has a low appetite Unsure of what his last A1C was BS are either really high or low. Has a freestyle mango. Taking Lantus insulin. No meal time insulin. Taking Farxiga and Metformin (has been on that for awhile). Was supposed to follow with a package checker Hx of aortic valve replacement Had a congenital aortic aneurysm Has a pacemaker Has had heart attack He is not following with any specialists right now. States he either had a seizure or stroke and was placed in the hospital and then went to a skilled nursing for 5 weeks. 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 Started smoking [...] No date: Anxiety No date: Aortic aneurysm ([facility]) Comment: S/P Repair No date: Aortic aneurysm ([facility]) No date: Aortic valve disorder Comment: S/P Replacement No date: CAD (coronary artery disease) Comment: nonobstructive No date: Coronary artery disease No date: Depression No date: Diabetes mellitus, type II ([facility]) Comment: Insulin dependent No date: Hx of ascending aorta repair No date: Hyperlipidemia No date: Hypertension No date: Non-ST elevation CT (NSTEMI) ([facility]) Comment: 06/24 No date: NSTEMI (non-ST elevated myocardial infarction) ([facility]) No date: Pacemaker No date: Pacemaker No date: Paroxysmal atrial fibrillation ([facility]) No date: RBBB (right bundle branch block) No date: S/P aortic valve replacement Comment: 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 [facility] Hemoccult Stl Ql IAon 2023 Lower GI hemoglobin IA Ql (Stl) Negative Normal Negative [facility] Comment on above: Order Comment: Speci men Type: STOOL SPECIMENOrdering Facility: [facility] Address: [address] [place] [address] Performed By: #### 2 9771-3 ####[facility] LABCLIA [id number] [place] [address] [place] O+P Spec Microon 10-14-2023 Ova and parasites identified LM Nom (Unsp spec) OVA AND PARASITE EXAM: No Parasites Seen [facility] Comment on above: Performed By: #### 6 73-4 ####[facility] LABCLIA [id number] [address] OF [place] CNPChanel 10-07-2023 STEPHANIEN Telephone (KI) ANALILIA MELENDREZ ([id number]) 1960 M Date Time Provider Department 10/07/23 MARIANNA WAGNER During your visit today, we recorded the following information about you: Marianna Wagner APRN.PHYSICAL THERAPIST TECHNICIAN 10/07/2023 11:31 AM Signed Hgb has decreased [...] Date Reviewed: 08/09/2023 Reviewed by: Marianna Wagner APRN.PHYSICAL THERAPIST TECHNICIAN - Fully Assessed Reason for Visit: Results [95] Orders [681] Primary Visit Diagnosis:Anemia, unspecified type [D64.9] Other Visit Diagnosis:Chronic diarrhea [K52.9] Order(s):IRON AND TIBC [SQIRON] Order #: [id number] FUTURE FERRITIN [SQFERR] Order #: [id number] FUTURE FOLATE, SERUM [SQSERFOL] Order #: [id number] FUTURE VITAMIN B12 [SQB12] Order #: [id number] FUTURE COMPLETE BLOOD COUNT AND DIFFERENTIAL [SQCBCDIF] Order #: [id number] FUTURE COMPREHENSIVE METABOLIC PANEL [SQCMP] Order #: [id number] FUTURE Prescriptions as of 10/19/2023 - vancomycin [...] - Blood-Glucose Meter,Continuous (FREESTYLE MANGO 3 READER) [facility] Use to check blood sugar at least four (4) times daily. - Blood-Glucose Sensor (FREESTYLE MANGO 3 SENSOR) daneil Apply new sensor every fourteen (14) days [...] tablet by mouth once daily. - Insulin [place], Disposable, (NORBERTO PEN NEEDLE) 32 gauge x [...] (HCC) [I71.9] 08/09/2023 Atherosclerotic heart disease of [place] coronar*01/03/2017 Chronic pancreatitis (HCC) [K86.1] 08/09/2023 Calcium [...] attack) [Z8 (more content not included)... [facility] 09-24-2023 SAYRA Telephone (AGFAMPLE) ANALILIA MELENDREZ ([id number]) 1960 M Date Time Provider Department 09/24/23 [...] the restroom. States he was in a skilled nursing 6 weeks ago because of a seizure and the doctor in the skilled nursing had him on Tramadol for his stomach [...] anyway. Please advise. FLORENTINO Jackson Brittny A, APRN.PHYSICAL THERAPIST TECHNICIAN 09/24/2023 10:01 AM Signed I would like [...] too. I also placed some lab orders. [facility] [address] [facility] [place] [address] Appointment: [phone] Desk: [phone] Giulia Rogel MA 09/24/2023 1:56 PM Signed Patient is informed but he gets rides through his insurance so he won't be able to sheepskin pickler the kit or get the blood work done for a while. He is going to try and go to [facility] to complete labs and stool study Giulia Rogle MA Allergies As of Date: 09/24/2023 (No Known Allergies) Date Reviewed: 08/09/2023 Reviewed by: Marianna Wagner APRN.PHYSICAL THERAPIST TECHNICIAN - Fully Assessed Reason for Visit: Patient Question [1477] Primary Visit Diagnosis:Diarrhea of presumed infectious origin [R19.7] Other Visit Diagnosis:Generalized abdominal pain [R10.84] Order(s):OVA + PARA MICROSCOPIC [SQOVAP] Order #: [id number]. #:[id number] IMMUNOCHEMICAL FECAL OCCULT BLOOD TEST [SQIFOBT] Order #: [id number]. #:[id number] CRYPTOSPORIDIUM AND GIARDIA ANTIGENS BY EIA [SQOVAPSC] Order #: [id number] FUTURE C. DIFFICILE PCR [SQCDPCR] Order #: [id number] FUTURE CONSULT TO GASTROENTEROLOGY [9010] Order #: [id number]: 1 FUTURE COMPLETE BLOOD COUNT AND DIFFERENTIAL [SQCBCDIF] Order #: [id number] FUTURE COMPREHENSIVE METABOLIC PANEL [SQCMP] Order #: [id number] FUTURE Prescriptions as of 09/24/2023 - Blood-Glucose Meter,Continuous (FREESTYLE MANGO 3 READER) [facility] [place] Use to check blood [...] tablet by mouth once daily. - Insulin [place], Disposable, (NORBERTO PEN NEEDLE) 32 gauge x [...] [facility] 09-13-2023 SAYRA Telephone (AGFAMPLE) ANALILIA MELENDREZ ([id number]) 1960 M Date Time Provider Department 09/13/23 [...] Date Reviewed: 08/09/2023 Reviewed by: Marianna Wagner APRN.PHYSICAL THERAPIST TECHNICIAN - Fully Assessed Reason for Visit: Patient Update [1234] Prescriptions as of 09/14/2023 - Blood-Glucose Meter,Continuous (FREESTYLE MANGO 3 READER) [facility] [place] Use to check blood [...] tablet by mouth once daily. 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 08-20-2023 SAYRA Telephone (AGFAMPLE) ANALILIA MELENDREZ ([id number]) 1960 M Date Time Provider Department 08/20/23 MARIANNA WAGNER During your visit today, we recorded the following information about you: Giulia Rogel MA 08/20/2023 10:45 AM Signed Patient called he would like an order for freestyle mango FLORENTINO Cerrato Julie, MA 08/23/2023 11:44 AM Signed Patient called again requesting a refill FLORENTINO Cerrato Brittny A, APRN.PHYSICAL THERAPIST TECHNICIAN 08/29/2023 2:43 PM Signed Order for Freestyle Mango sent into pharmacy. Marianna Wagner APRN.CNP 08/29/2023 2:43 PM Signed Addended by: MARIANNA WAGNER on: 08/29/2023 02:43 PM Modules accepted: Orders Andrew PonceFLORENTINO 08/30/2023 2:11 PM Signed Patient aware. Andrew Ponce MA Allergies As of Date: 08/20/2023 (No Known Allergies) Date Reviewed: 08/09/2023 Reviewed by: Marianna Wagner APRN.PHYSICAL THERAPIST TECHNICIAN - Fully Assessed Reason for Visit: Patient [...] tablet by mouth once daily. - Insulin [place], Disposable, (NORBERTO PEN NEEDLE) 32 gauge x [...] (HCC) [I71.9] 08/09/2023 Atherosclerotic heart disease of [place] coronar*01/03/2017 Chronic pancreatitis (HCC) [K86.1] 08/09/2023 Calcium [...] Left ve (more content not included)... [facility] CNPNon 08-16-2023 CNPN Telephone (OSCARFAMPLE) ANALILIA MELENDREZ ([id number]) 1960 M Date Time Provider Department 08/16/23 MARIANNA WAGNER During your visit today, we recorded the following information about you: Andrew Ponce MA 08/16/2023 2:21 PM Signed ----- Message from Marianna Wagner APRN.PHYSICAL THERAPIST TECHNICIAN sent at 08/16/2023 2:14 PM EDT ----- A1C has improved to 6.8 which is considered controlled. Continue current medications. Recheck in 6 months. Andrew Ponce MA 08/16/2023 2:21 PM Signed Pt. Notified. Reminder placed. Andrew SaenzminhjaniFLORENTINO Allergies As of Date: 08/16/2023 (No Known Allergies) Date Reviewed: 08/09/2023 Reviewed by: Marianna Wagner APRN.PHYSICAL THERAPIST TECHNICIAN - Fully Assessed Reason for Visit: Results [...] tablet by mouth once daily. - Insulin [place], Disposable, (NORBERTO PEN NEEDLE) 32 gauge x [...] (HCC) [I71.9] 08/09/2023 Atherosclerotic heart disease of [place] coronar*01/03/2017 Chronic pancreatitis (HCC) [K86.1] 08/09/2023 Calcium [...] uncomplicated* 7 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] 05/20/2023 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 (HCC) [Z79.4]01/03/2017 Pansystolic murmur [R01.1] 08/09/2023 Unspecified severe protein-calorie malnutrition*05/20/2023 Encounter Status:Closed by ANDREW PONCE on 08/16/23 [facility] Bacteria identified Cx Nom ( U)Ordered By: Franco Robbins on 08-12-2023 Interpretation and review of laboratory results Abnormal [facility] URINE CULTUREOrdered By: Col brielle Robbins on 08-12-2023 Bacteria identified Cx Nom (U) >=100,000 CFU/ml Escherichia coli Abnormal [facility] CNPNon 08-11-2023 STEPHANIEN Telephone (KI) ANALILIA MELENDREZ ([id number]) 1960 M Date Time Provider Department 08/11/23 MARIANNA WAGNER During your visit today, we recorded the following information about you: Marianna Wagner APRN.PHYSICAL THERAPIST TECHNICIAN 08/11/2023 6:19 PM Signed Please notify that [...] not with Lisinopril. Will forward this to overnight caregiver since he is a complicated case. Suzi Haynes MA 08/13/2023 9:28 AM Signed Patient informed of results, recommendations and scripts sent in. Patient states he [facility] not use [facility] he uses [facility] in [place] and would like scripts resent. Also patient states he does not take any supplements with vitamin B12. Please advise. Suzi Haynes MA Allergies As of Date: 08/11/2023 (No Known Allergies) Date Reviewed: 08/09/2023 Reviewed by: Marianna Wagner APRN.PHYSICAL THERAPIST TECHNICIAN - Fully Assessed Reason for Visit: Results [95] Primary Visit Diagnosis:Anemia, unspecified type [D64.9] Order(s):IMMUNOCHEMICAL FECAL OCCULT BLOOD TEST [SQIFOBT] Order #: [id number]. #:[id number] cephALEXin (KEFLEX) 500 mg capsuleTake 1 capsule [...] tablet by mouth once daily. 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 [facility] 25-hydroxyvitamin D3 [Mass/V ol]on 08-10-2023 Interpretation and review of laboratory results Abnormal [facility] Cobalamin (Vitamin B12) [Mas s/Vol]on 08-10-2023 Interpretation and review of laboratory results Abnormal [facility] FERRITINon 08-10-2023 Ferritin [Mass/Vol] 561.0 ng/mL 30.3 - 5 65.7 ng/mL [facility] FOLATE, SERUMon 08-10-2023 Folate [Mass/Vol] 19.5 ng/mL 4.7 - PINF ng/mL [facility] Folate [Mass/Vol]on 08-10-19 Interpretation and review of laboratory results Normal [facility] HIV 1+2 Ab IA Qlon HIV 1 and 2 Ab IA.rapid Nom (S/P/Bld) [facility] Comment on above: Test not indicated. HIV 1+2 Ab+HIV1 p24 Ag IA Ql Non-Reactive Nonreactive [facility] Comment on above: [place] Rev. Code 3701. 243(E): This information has [...] for this assay has moved from Siemens Wiser (formerly WisePricer)aur XP to [employer] perri 8000 effective November 11, 2021. Please note there may be a change in the reporting units and/or reference range. HIV immunoassay testing algorithm interpretation (S/P/Bld) [Interp] [facility] Comment on above: No evidence of HIV-1 or HIV-2 infection. Should recent infection be suspected, repeat testing may be considered 2-3 weeks after this draw. Iron and Iron binding capaci ty panelon 08-10-2023 Interpretation and review of laboratory results Abnormal [facility] Iron [Mass/Vol] 108 ug/dL 41 - 186 ug/dL [facility] Iron binding capacity [Mass/Vol] ug/dL Low 232 - 386 ug/dL [facility] Iron saturation [Mass fraction] % High 15.0 - 57.0 % [facility] No Panel Informationon 08-09 [facility] Interpretation and review of laboratory results Normal [facility] PSA/PROSTATE SPECIFIC ANTIGE N SCREENINGon 08-10-2023 Prostate specific Ag [Mass/Vol] 0.78 ng/mL NINF - 2.60 ng/mL [facility] Comment on above: Total PSA test metho dology used is the Electrochemiluminescence Immunoassay by [employer]. Total PSA values by differing methodologies cannot be interchanged. VITAMIN B12on 08-10-2023 Cobalamin (Vitamin B12) [Mass/Vol] 1523 pg/mL High 232 - 1245 pg/mL [facility] VITAMIN D 25 HYDROXYon 08-09 25-hydroxyvitamin D3 [Mass/Vol] 24.0 ng/mL Low 30.0 - PINF ng/mL [facility] Comment on above: Classification of 25 [place] Vitamin D status: Deficiency: <= 20.0 ng/ml. Insufficiency: 21.0-29.0 ng/ml. Sufficiency: >= 30.0 ng/ml. 25(OH)D3 SerPl-mCncon 2023 25-hydroxyvitamin D3 [Mass/Vol] 24.0 ng/mL Low >=30.0 [facility] Comment on above: Order Comment: Gini nowak Type: BLOOD SPECIMENOrdering Facility: [facility] Address: [address], [place] [address] Result Comment: Clas sification of 25 [place] Vitamin D status: Deficiency: <= 20.0 ng/ml. Insufficiency: 21.0-29.0 ng/ml. Sufficiency: >= 30.0 ng/ml. Performed By: #### 1 989-3 ####[facility] LABORATORYCLIA [id number] [place] [address] [place] Bacteria Ur Culton [...] , Intermediate >32 , Resistant >64 Abnormal [facility] Comment on above: Performed By: #### 6 30-4 ####[facility] LABORATORYCLIA [id number] [place] [address] [place] CBC W Auto Differential pane l (Bld)on 08-09-2023 Basophils (Bld) [#/Vol] 0.03 10*3/uL [facility] Basophils/100 WBC (Bld) 0.5 % [facility] Differential cell count method Nom (Bld) Auto [facility] Eosinophils (Bld) [#/Vol] 0.04 10*3/uL [facility] Eosinophils/100 WBC (Bld) 0.6 % [facility] Erythrocyte distribution width (RBC) [Ratio] 15.9 % High 11.5 - 15.0 % [facility] Hematocrit (Bld) [Volume fraction] 35.0 % Low 39.0 - 51.0 % [facility] Hemoglobin (Bld) [Mass/Vol] 11.4 g/dL Low 13.0 - 17.0 g/dL [facility] Immature granulocytes (Bld) [#/Vol] [facility] Immature granulocytes/100 WBC (Bld) 0.2 % [facility] Interpretation and review of laboratory results Abnormal [facility] Lymphocytes (Bld) [#/Vol] 1.31 10*3/uL [facility] Lymphocytes/100 WBC (Bld) 21.0 % [facility] MCH (RBC) [Entitic mass] 35.4 pg High 26.0 - 34.0 pg [facility] MCHC (RBC) [Mass/Vol] 32.6 g/dL 30.5 - 36.0 g/dL [facility] MCV (RBC) [Entitic vol] 108.7 fL High 80.0 - 100.0 fL [facility] Monocytes (Bld) [#/Vol] 0.57 10*3/uL NINF [facility] Monocytes/100 WBC (Bld) 9.1 % [facility] Neutrophils (Bld) [#/Vol] 4.29 10*3/uL [facility] Neutrophils/100 WBC (Bld) 68.6 % [facility] Nucleated RBC (Bld) [#/Vol] [facility] Nucleated RBC/100 WBC (Bld) [Ratio] [facility] Platelet mean volume (Bld) [Entitic vol] 10.4 fL 9.0 - 12.7 fL [facility] Platelets (Bld) [#/Vol] 195 10*3/uL [facility] RBC (Bld) [#/Vol] 3.22 10*6/uL Low 4.20 - 6.0 0 m/uL [facility] WBC (Bld) [#/Vol] 6.25 10*3/uL [facility] Basophils (Bld) [#/Vol] 0.03 10*3/uL Normal <0.11 [facility] Comment on above: Order Comment: Speci men Type: BLOOD SPECIMENOrdering Facility: [facility] Address: [address] [place] [address] Performed By: #### 5 7021-8 ####[facility] LABCLIA [id number] [address]#### [address]-0 ####[facility] LABCLIA [id number] [address] STATES OF [facility] Basophils/100 WBC (Bld) 0.5 % Normal A [facility] Comment on above: Order Comment: Speci men Type: BLOOD SPECIMENOrdering Facility: [facility] Address: [address] [place] [address] Performed By: #### 5 7021-8 ####[facility] LABCLIA [id number] [address] [place]#### [address]-7 ####[facility] LABCLIA [id number] [place] [address] [place] Differential cell count method Nom (Bld) Auto [facility] Comment on above: Order Comment: Speci men Type: BLOOD SPECIMENOrdering Facility: [facility] Address: [address] [place] [address] Performed By: #### 5 7021-8 ####[facility] LABCLIA [id number] [place] [address] [place]#### 33411-3 ####[facility] LABCLIA [id number] [place] [address] [place] Eosinophils (Bld) [#/Vol] 0.04 10*3/uL Normal <0.46 [facility] Comment on above: Order Comment: Speci men Type: BLOOD SPECIMENOrdering Facility: [facility] Address: [address] [place] [address] Performed By: #### 5 7021-8 ####[facility] LABCLIA [id number] [place] [address] [place]#### 92450-5 ####[facility] LABCLIA [id number] [address] [place] Eosinophils/100 WBC (Bld) 0.6 % [facility] Comment on above: Order Comment: Speci men Type: BLOOD SPECIMENOrdering Facility: [facility] Address: [address] [place] [address] Performed By: #### 5 7021-8 ####[facility] LABCLIA [id number] [place] [address] [place]#### 56055-9 ####[facility] LABCLIA [id number] [place] [address] [place] Erythrocyte distribution width (RBC) [Ratio] 15.9 % High 11.5-15.0 [facility] Comment on above: Order Comment: Speci men Type: BLOOD SPECIMENOrdering Facility: [facility] Address: [address] [place] [address] Performed By: #### 5 7021-8 ####[facility] LABCLIA [id number] [place] [address] [place]#### 20886-8 ####[facility] LABCLIA [id number] [place] [address] [place] Hematocrit (Bld) [Volume fraction] 35.0 % Low 39.0-51.0 [facility] Comment on above: Order Comment: Speci men Type: BLOOD SPECIMENOrdering Facility: [facility] Address: [address] [place] [address] Performed By: #### 5 7021-8 ####[facility] LABCLIA [id number] [place] [address] [place]#### 52706-7 ####[facility] LABCLIA [id number] [place] [address] [place] Hemoglobin (Bld) [Mass/Vol] 11.4 g/dL Low 13.0-17.0 [facility] Comment on above: Order Comment: Speci men Type: BLOOD SPECIMENOrdering Facility: [facility] Address: [address] [place] [address] Performed By: #### 5 7021-8 ####[facility] LABCLIA [id number] [place] [address] [place]#### 93927-0 ####[facility] LABCLIA [id number] [place] [address] [place] Immature granulocytes (Bld) [#/Vol] 10*3/uL Normal <0.10 [facility] Comment on above: Order Comment: Speci men Type: BLOOD SPECIMENOrdering Facility: [facility] Address: [address] [place] [address] Performed By: #### 5 7021-8 ####[facility] LABCLIA [id number] [place] [address] [place]#### 08662-0 ####[facility] LABCLIA [id number] [place] [address] [place] Immature granulocytes/100 WBC (Bld) 0.2 % Normal [facility] Comment on above: Order Comment: Speci men Type: BLOOD SPECIMENOrdering Facility: [facility] Address: [address] [place] [address] Performed By: #### 5 7021-8 ####[facility] LABCLIA [id number] [place] [address] [place]#### 09598-0 ####[facility] LABCLIA [id number] [place] [address] [place] Lymphocytes (Bld) [#/Vol] 1.31 10*3/uL Normal 1.00-4.00 [facility] Comment on above: Order Comment: Speci men Type: BLOOD SPECIMENOrdering Facility: [facility] Address: [address] [place] [address] Performed By: #### 5 7021-8 ####[facility] LABCLIA [id number] [place] [address] [place]#### 94778-1 ####[facility] LABCLIA [id number] [place] [address] [place] Lymphocytes/100 WBC (Bld) 21.0 % Normal [facility] Comment on above: Order Comment: Speci men Type: BLOOD SPECIMENOrdering Facility: [facility] Address: [address] [place] [address] Performed By: #### 5 7021-8 ####[facility] [place] LABCLIA [id number] [place] [address] [place]#### 19675-8 ####[facility] LABCLIA [id number] [place] [address] [place] MCH (RBC) [Entitic mass] 35.4 pg High 26.0-34.0 [facility] Comment on above: Order Comment: Speci men Type: BLOOD SPECIMENOrdering Facility: [facility] Address: [address] [place] [address] Performed By: #### 5 7021-8 ####[facility] LABCLIA [id number] [place] [address] [place]#### 88433-8 ####[facility] LABCLIA [id number] [place] [address] [place] MCHC (RBC) [Mass/Vol] 32.6 g/dL Normal 30.5-36.0 [facility] Comment on above: Order Comment: Speci men Type: BLOOD SPECIMENOrdering Facility: [facility] Address: [address] [place] [address] Performed By: #### 5 7021-8 ####[facility] LABCLIA [id number] [address] [place]#### 93873-5 ####[facility] LABCLIA [id number] [address] [place] MCV (RBC) [Entitic vol] 108.7 fL High 80.0-100.0 [facility] Comment on above: Order Comment: Speci men Type: BLOOD SPECIMENOrdering Facility: [facility] Address: [address] [place] [address] Performed By: #### 5 7021-8 ####[facility] LABCLIA [id number] [place] [address] [place]#### 34621-5 ####[facility] LABCLIA [id number] [place] [address] [place] Monocytes (Bld) [#/Vol] 0.57 10*3/uL Normal <0.87 [facility] Comment on above: Order Comment: Speci men Type: BLOOD SPECIMENOrdering Facility: [facility] Address: [address] [place] [address] Performed By: #### 5 7021-8 ####[facility] LABCLIA [id number] [place] [address] [place]#### 25942-4 ####[facility] LABCLIA [id number] [place] [address] [place] Monocytes/100 WBC (Bld) 9.1 % Normal [facility] Comment on above: Order Comment: Speci men Type: BLOOD SPECIMENOrdering Facility: [facility] Address: [address] [place] [address] Performed By: #### 5 7021-8 ####[facility] LABCLIA [id number] [place] [address] [place]#### 74615-8 ####[facility] LABCLIA [id number] [place] [address] [place] Neutrophils (Bld) [#/Vol] 4.29 10*3/uL Normal 1.45-7.50 [facility] Comment on above: Order Comment: Speci men Type: BLOOD SPECIMENOrdering Facility: [facility] Address: [address] [place] [address] Performed By: #### 5 7021-8 ####[facility] [place] LABCLIA [id number] [place] [address] [place]#### 19833-2 ####[facility] LABCLIA [id number] [place] [address] [place] Neutrophils/100 WBC (Bld) 68.6 % Normal [facility] Comment on above: Order Comment: Speci men Type: BLOOD SPECIMENOrdering Facility: [facility] Address: [address] [place] [address] Performed By: #### 5 7021-8 ####[facility] [place] LABCLIA [id number] [place] [address] [place]#### 31490-5 ####[facility] LABCLIA [id number] [place] [address] [place] Nucleated RBC (Bld) [#/Vol] Normal [facility] Comment on above: Order Comment: Speci men Type: BLOOD SPECIMENOrdering Facility: [facility] Address: [address] [place] [address] Performed By: #### 5 7021-8 ####[facility] LABCLIA [id number] [place] [address] [place]#### 61809-6 ####[facility] LABCLIA [id number] [place] [address] [place] Nucleated RBC/100 WBC (Bld) [Ratio] Normal [facility] Comment on above: Order Comment: Speci men Type: BLOOD SPECIMENOrdering Facility: [facility] Address: [address] [place] [address] Performed By: #### 5 7021-8 ####[facility] LABCLIA [id number] [place] [address] [place]#### 84041-0 ####[facility] LABCLIA [id number] [place] [address] [place] Platelet mean volume (Bld) [Entitic vol] 10.4 fL Normal 9.0-12.7 [facility] Comment on above: Order Comment: Speci men Type: BLOOD SPECIMENOrdering Facility: [facility] Address: [address] [place] [address] Performed By: #### 5 7021-8 ####[facility] LABCLIA [id number] [place] [address] [place]#### 90790-1 ####[facility] LABCLIA [id number] [place] [address] [place] Platelets (Bld) [#/Vol] 195 10*3/uL Normal 150-400 [facility] Comment on above: Order Comment: Speci men Type: BLOOD SPECIMENOrdering Facility: [facility] Address: [facility] [place] [address] Performed By: #### 5 7021-8 ####[facility] LABCLIA [id number] [place] [address] [place]#### 09937-6 ####[facility] LABCLIA [id number] [place] [address] [place] RBC (Bld) [#/Vol] 3.22 10*6/uL Low 4.20-6.00 [facility] Comment on above: Order Comment: Speci men Type: BLOOD SPECIMENOrdering Facility: [facility] Address: [facility] [place] [address] Performed By: #### 5 7021-8 ####[facility] [place] LABCLIA [id number] [place] [address] [place] [facility]#### 42277-1 ####[facility] LABCLIA [id number] [place] [address] [place] WBC (Bld) [#/Vol] 6.25 10*3/uL Normal 3.70-11.00 [facility] Comment on above: Order Comment: Speci men Type: BLOOD SPECIMENOrdering Facility: [facility] Address: [address] [place] [address] Performed By: #### 5 7021-8 ####[facility] LABIA [id number] [place] [address] [place]#### 46192-6 ####[facility] LABCLIA [id number] [facility] [place] [address] [place] CNOVon 08-09-2023 CNOV Office Visit (AGFAMP LE) ANALILIA MELENDREZ ([id number]) 1960 M Date Time Provider Department 08/09/23 1:20 PM MARIANNA WAGNER During your visit today, we recorded the following information about you: Temperature Pulse Blood pressure Weight 99 degrees 98/minute 122/76 63 kg Height 1.803 m Marianna Wagner APRN.PHYSICAL THERAPIST TECHNICIAN 08/13/2023 12:57 PM Signed [facility] Marianna Wagner SCREEN REPAIRER CRUSHER-PHYSICAL THERAPIST TECHNICIAN [address] [place] [address] Dept Dept. Visit Date: August 09, 2023 Mr.Steven Melendrez Date of : 1960 MRN/E #: [id number] Chief Complaint: Patient presents with: Establish Care: Previous pt. Of dr. Young at [facility]. Think he may have a seizure or stoke. Went to skilled nursing for 5 week. (Alexy shaffern in [place]) Diarrhea: X 2 months. BM is orange . Loss of weight . Goes 8 times a day History of Present Illness Analilia Melednrez is a 63 year old male presenting [...] lbs. Was 165 lbs prior to the skilled nursing in June. Has frequent nausea and vomiting. Has a low appetite Unsure of what his last A1C was BS are either really high or low. Has a freestyle mango. Taking Lantus insulin. No meal time insulin. Taking Farxiga and Metformin (has been on that for awhile). Was supposed to follow with a package checker Hx of aortic valve replacement Had a congenital aortic aneurysm Has a pacemaker Has had heart attack He is not following with any specialists right now. States he either had a seizure or stroke and was placed in the hospital and then went to a skilled nursing for 5 weeks. 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 Started smoking [...] ascending aorta repair Hyperlipidemia Hypertension Non-ST elevation CT (NSTEMI) (HCC) 06/24 NSTEMI (non-ST elevated myocardial [...] Coronary Artery (more content not included)... Normal [facility] Comprehensive metabolic 2000 panelon 08-09-2023 Albumin [Mass/Vol] 2.7 g/dL Low 3.9 - 4.9 g/dL [facility] ALP [Catalytic activity/Vol] 211 U/L High 38 - 113 U/L [facility] ALT With P-5'-P [Catalytic activity/Vol] 53 U/L 10 - 54 U/L [facility] Anion gap [Moles/Vol] 13 mmol/L 8 - 15 mmol/L [facility] AST With P-5'-P [Catalytic activity/Vol] 179 U/L High 14 - 40 U/L [facility] Bilirubin [Mass/Vol] 0.5 mg/dL 0.2 - 1 .3 mg/dL [facility] Calcium [Mass/Vol] 8.3 mg/dL Low 8.5 - 10. 2 mg/dL [facility] Chloride [Moles/Vol] 99 mmol/L 98 - 10 7 mmol/L [facility] CO2 [Moles/Vol] 30 mmol/L 22 - 30 mmol/L [facility] Creatinine [Mass/Vol] 1.36 mg/dL High 0.73 - 1.22 mg/dL [facility] GFR/1.73 sq M.predicted among non-blacks MDRD (S/P/Bld) [Vol rate/Area] 59 mL/min/{1.73_m2} Low - PINF [facility] Comment on above: Estimated Glomerular [...] 165 mg/dL High 74 - 99 mg/dL [facility] Comment on above: The [place] Diabete s Association (ADA) provides guidance for [...] Standards of Medical Care in Diabetes 2016, [place] [employer]. Diabetes Care. 2016.39(Suppl 1). Potassium [Moles/Vol] 4.7 mmol/L 3.7 - 5.1 mmol/L [facility] Protein [Mass/Vol] 6.6 g/dL 6.3 - 8.0 g/dL [facility] Sodium [Moles/Vol] 142 mmol/L 136 - 144 mmol/L [facility] Urea nitrogen [Mass/Vol] 10 mg/dL 9 - 24 mg/dL [facility] Albumin [Mass/Vol] 2.7 g/dL Low 3.9-4.9 [facility] Comment on above: Order Comment: Speci men Type: BLOOD SPECIMENOrdering Facility: [facility] Address: [address] [place], [place] [address] [address] Performed By: #### 3 016-3, 68367-1, 22499-3, 3040-3 ####[facility] [place] LABCLIA [id number] [facility] [place] [address] [place] ALP [Catalytic activity/Vol] 211 U/L High 38-113 [facility] Comment on above: Order Comment: Speci men Type: BLOOD SPECIMENOrdering Facility: [facility] Address: [address] [place] [address] Performed By: #### 3 016-3, 78226-9, 43451-7, 0-3 ####[facility] [place] LABCLIA [id number] [facility] [place] [address] [place] ALT With P-5'-P [Catalytic activity/Vol] 53 U/L Normal 10-54 [facility] Comment on above: Order Comment: Speci men Type: BLOOD SPECIMENOrdering Facility: [facility] Address: [address] [place] [address] Performed By: #### 3 016-3, 51528-0, 99681-9, 3039-3 ####[facility] LABCLIA [id number] [place] [address] [place] [facility] Anion gap [Moles/Vol] 13 mmol/L Normal 8-15 [facility] Comment on above: Order Comment: Speci men Type: BLOOD SPECIMENOrdering Facility: [facility] Address: [address] [place] [address] Performed By: #### 3 016-3, 98002-0, 80232-3, 0-3 ####[facility] LABCLIA [id number] [facility] [place] [address] [place] AST With P-5'-P [Catalytic activity/Vol] 179 U/L High 14-40 [facility] Comment on above: Order Comment: Speci men Type: BLOOD SPECIMENOrdering Facility: [facility] Address: [address] [place], [place] [address] Performed By: #### 3 016-3, 83842-3, 91402-9, 0-3 ####[facility] [place] LABCLIA [id number] [place] [address] [place] Bilirubin [Mass/Vol] 0.5 mg/dL Normal 0.2-1.3 [facility] Comment on above: Order Comment: Speci men Type: BLOOD SPECIMENOrdering Facility: [facility] Address: [address] [place] [address] Performed By: #### 3 016-3, 26817-7, 38534-9, 3040-3 ####[facility] [place] LABCLIA [id number] [place] [address] [place] Calcium [Mass/Vol] 8.3 mg/dL Low 8.5-10.2 [facility] Comment on above: Order Comment: Speci men Type: BLOOD SPECIMENOrdering Facility: [facility] Address: [address] [place] [address] Performed By: #### 3 016-3, 49229-6, 34631-7, 3040-3 ####[facility] [place] LABCLIA [id number] [place] [address] [place] Chloride [Moles/Vol] 99 mmol/L Normal 98-107 [facility] Comment on above: Order Comment: Speci men Type: BLOOD SPECIMENOrdering Facility: [facility] Address: [address] [place] [address] Performed By: #### 3 016-3, 99780-9, 38680-9, 3040-3 ####[facility] [place] LABCLIA [id number] [place] [address] [place] CO2 [Moles/Vol] 30 mmol/L Normal 22-30 [facility] Comment on above: Order Comment: Speci men Type: BLOOD SPECIMENOrdering Facility: [facility] Address: [address] [place] [address] Performed By: #### 3 016-3, 91721-5, 75530-5, 3040-3 ####[facility] [place] LABCLIA [id number] [place] [address] [place] Creatinine [Mass/Vol] 1.36 mg/dL High 0.73-1.22 [facility] Comment on above: Order Comment: Gini nowak Type: BLOOD SPECIMENOrdering Facility: [facility] Address: [address] [place] [address] Performed By: #### 3 016-3, 55367-7, 51011-3, 3040-3 ####[facility] LABCLIA [id number] [place] [address] [facility] Creatinine and Glomerular filtration rate.predicted panel (S/P/Bld) 59 mL/min/1.73m??? Low >=60 [facility] Comment on above: Order Comment: Gini nowak Type: BLOOD SPECIMENOrdering Facility: [facility] Address: [address] [place] [address] Result Comment: Gurwinder mated Glomerular Filtration Rate [...] actual GFR. Performed By: #### 3 016-3, 51964-3, 88779-6, 3040-3 ####[facility] LABCLIA [id number] [place] [address] [place] [facility] Glucose [Mass/Vol] 165 mg/dL High 74-99 [facility] Comment on above: Order Comment: Gini nowak Type: BLOOD SPECIMENOrdering Facility: [facility] Address: [address] [place] [address] Result Comment: The [place] Diabetes Association (ADA) provides guidance for cutoff [...] Standards of Medical Care in Diabetes 2016, [place] Diabetes Association. Diabetes Care. 2016.39(Suppl 1). Performed By: #### 3 016-3, 43817-3, 37113-9, 0-3 ####[facility] LABCLIA [id number] [place] [address] [place] Potassium [Moles/Vol] 4.7 mmol/L Normal 3.7-5.1 [facility] Comment on above: Order Comment: Speci men Type: BLOOD SPECIMENOrdering Facility: [facility] Address: [address] [place] [address] Performed By: #### 3 016-3, 40519-3, 86779-5, 0-3 ####[facility] LABCLIA [id number] [place] [address] [place] Protein [Mass/Vol] 6.6 g/dL Normal 6.3-8.0 [facility] Comment on above: Order Comment: Speci men Type: BLOOD SPECIMENOrdering Facility: [facility] Address: [address] [place] [address] Performed By: #### 3 016-3, 17521-7, 07366-4, 0-3 ####[facility] LABCLIA [id number] [place] [address] [place] Sodium [Moles/Vol] 142 mmol/L Normal 136-144 [facility] Comment on above: Order Comment: Speci men Type: BLOOD SPECIMENOrdering Facility: [facility] Address: [address] [place] [address] Performed By: #### 3 016-3, 47375-0, 56680-0, 3040-3 ####[facility] [place] LABCLIA [id number] [place] [address] [place] Urea nitrogen [Mass/Vol] 10 mg/dL Normal 9-24 [facility] Comment on above: Order Comment: Speci men Type: BLOOD SPECIMENOrdering Facility: [facility] Address: [address] [place] [address] Performed By: #### 3 016-3, 42299-8, 33748-6, 3040-3 ####[facility] [place] LABCLIA [id number] [place] [address] [place] Ferritin SerPl-mCncon 2023 Ferritin [Mass/Vol] 561.0 ng/mL Normal 30.3-565.7 [facility] Comment on above: Order Comment: Spec men Type: BLOOD SPECIMENOrdering Facility: [facility] Address: [address] [place] [address] Performed By: #### 2 276-4, 66044-3, PSAS1 ####[facility] LABORATORYCLIA [id number] [address] OF [facility] Folate SerPl-mCncon 08-09-19 Folate [Mass/Vol] 19.5 ng/mL Normal >4.7 [facility] Comment on above: Order Comment: Speci [facility] Type: BLOOD SPECIMENOrdering Facility: [facility] Address: [address] [place] [address] Performed By: #### 2 2314-9, 5195-3, 4-8, 74399-4 ####[facility] LABORATORYCLIA [id number] [address] OF [facility] HAV IgM Ser Qlon 08-09-2023 HAV IgM Ql (S) Non-Reactive Normal Nonreactive [facility] Comment on above: Order Comment: Speci [facility] Type: BLOOD SPECIMENOrdering Facility: [facility] Address: [address] [place] [address] Result Comment: No e vidence of recent infection with Hepatitis A virus. Performed By: #### 2 2314-9, 5195-3, 4-8, 53220-7 ####[facility] LABORATORYCLIA [id number] [place] HBV core IgM Ser Qlon 2023 HBV core IgM Ql (S) Non-Reactive Normal Nonreactive [facility] Comment on above: Order Comment: Speci men Type: BLOOD SPECIMENOrdering Facility: [facility] Address: [address] [place] [address] Result Comment: No e vidence of recent infection with Hepatitis B virus. Should recent infection be suspected, repeat testing may be considered 3-4 weeks after this draw. Performed By: #### 2 2314-9, 5195-3, 2284-8, 87785-4 ####[facility] LABORATORYCLIA [id number] [place] HBV surface Ag Ser Qlon HBV surface Ag Ql (S) Non-Reactive Normal Nonreactive [facility] Comment on above: Order Comment: Speci men Type: BLOOD SPECIMENOrdering Facility: [facility] Address: [address] [place] [address] Performed By: #### 2 2314-9, 5195-3, 2284-8, 93707-4 ####[facility] [id number] [place] [address] [place] HCV Ab Ser Qlon 08-09-2023 HCV Ab Ql (S) Non-Reactive Normal Nonreactive [facility] Comment on above: Order Comment: Speci men Type: BLOOD SPECIMENOrdering Facility: [facility] Address: [address] [place] [address] Result Comment: The result suggests no evidence of active infection with Hepatitis C virus. Should recent infection be suspected, repeat testing may be considered 4-6 weeks after this draw. Performed By: #### 1 6128-1 ####[facility] LABORATORYCLIA [id number] [address] [place] HIV 1+2 Ab IA Ql HIV 1 and 2 Ab IA.rapid Nom (S/P/Bld) Normal [facility] Comment on above: Order Comment: Speci men Type: BLOOD SPECIMENOrdering Facility: [facility] Address: [address], [place] [address] Result Comment: Test not indicated. Performed By: #### 3 1201-7, 2131-10 ####[facility] LABORATORYCLIA [id number] [place], [place] [address] [place] [address] [place] HIV 1+2 Ab+HIV1 p24 Ag IA Ql Non-Reactive Normal Nonreactive [facility] Comment on above: Order Comment: Speci men Type: BLOOD SPECIMENOrdering Facility: [facility] Address: [address] [place] [address] Result Comment: [place] Rev. Code 3701.243(E): This information has been [...] for this assay has moved from Siemens Wiser (formerly [employer]ricer)aur XP to [employer] 8000 effective November 11, 2021. Please note there may be a change in the reporting units and/or reference range. Performed By: #### 3 1201-7, 2131-10 ####[facility] LABORATORYCLIA [id number] [place], [place] [id number] [place] [address] HIV immunoassay testing algorithm interpretation (S/P/Bld) [Interp] Normal [facility] Comment on above: Order Comment: Speci men Type: BLOOD SPECIMENOrdering Facility: [facility] Address: [address] [place] [address] Result Comment: No e vidence of HIV-1 or HIV-2 infection. Should recent infection be suspected, repeat testing may be considered 2-3 weeks after this draw. Performed By: #### 3 1201-7, 2131-10 ####[facility] LABORATORYCLIA [id number] [place] [address] [place] HbA1c (Bld)on 08-09-2023 Average glucose Estimated from glycated hemoglobin (Bld) [Mass/Vol] 148 mg/dL [facility] Comment on above: Order Comment: Speci men Type: BLOOD SPECIMENOrdering Facility: [facility] Address: [facility] [place] [address] Result Comment: eAG: (Estimated average glucose) is a calculated value from HgbA1c and is outside sales representative of the average blood glucose level in the last 2-3 month period. Performed By: #### 5 7021-8 ####[facility] LABCLIA [id number] [address] OF [place]#### [address]-4 ####[facility] LABCLIA [id number] [address] [place] HbA1c (Bld) [Mass fraction] 6.8 % High 4.3-5.6 [facility] Comment on above: Order Comment: Speci men Type: BLOOD SPECIMENOrdering Facility: [facility] Address: [address] [place] [address] Result Comment: Amer ican Diabetes Association guidelines indicate that patients with HgbA1c in the range 5.7-6.4% are at increased risk for development of diabetes, and intervention by lifestyle modification may be beneficial. HgbA1c greater or equal to 6.5% is considered diagnostic of diabetes. Performed By: #### 5 7021-8 ####[facility] LABCLIA [id number] [address]#### [address]-9 ####[facility] LABCLIA [id number] [address] [place] Iron and Iron binding capaci ty panelon 08-09-2023 Iron [Mass/Vol] 108 ug/dL Normal 41-186 [facility] Comment on above: Order Comment: Speci men Type: BLOOD SPECIMENOrdering Facility: [facility] Address: [address] [place] [address] Performed By: #### 2 276-4, 10443-5, PSAS1 ####[facility] LABORATORYCLIA [id number] [address] [place] Iron binding capacity [Mass/Vol] <125 Low 232-386 [facility] Comment on above: Order Comment: Speci men Type: BLOOD SPECIMENOrdering Facility: [facility] Address: [address] [place] [address] Performed By: #### 2 276-4, 74138-6, PSAS1 ####[facility] LABORATORYCLIA [id number] [place] [address] [facility] Iron saturation [Mass fraction] >86.4 High 15.0-57.0 [facility] Comment on above: Order Comment: Speci men Type: BLOOD SPECIMENOrdering Facility: [facility] Address: [address] [place] [address] Performed By: #### 2 276-4, 19256-8, PSAS1 ####[facility] LABORATORYCLIA [id number] [place] [id number] [place] LIPASEon 08-09-2023 Lipase [Catalytic activity/Vol] 4 U/L Low 16 - 61 U/L [facility] Lipase SerPl-cCncon 08-09-19 24 Lipase [Catalytic activity/Vol] 4 U/L Low 16-61 [facility] Comment on above: Order Comment: Speci men Type: BLOOD SPECIMENOrdering Facility: [facility] Address: [address] [place] [address] Performed By: #### 3 016-3, 88829-4, 05699-7, 3040-3 ####[facility] LABCLIA [id number] [place] [address] [place] Lipid 1996 panelon 4 Cholesterol [Mass/Vol] 104 mg/dL NINF - 200 mg/dL [facility] Comment on above: <200 mg/dL, Desirabl e 200-239 mg/dL, Borderline high >239 mg/dL, High Cholesterol in HDL [Mass/Vol] 30 mg/dL Low 39 - PINF mg/dL [facility] Comment on above: 40-59 mg/dL, Accepta ble >59 mg/dL, High: Negative risk factor for coronary heart disease <40 mg/dL, Low: Positive risk factor for coronary heart disease Cholesterol in LDL [Mass/Vol] 32 mg/dL NINF - 100 mg/dL [facility] Comment on above: <100 mg/dL, Optimal 100-129 mg/dL, Near optimal/above optimal 130-159 mg/dL, Borderline high 160-189 mg/dL, High >189 mg/dL, Very high Secondary prevention optimal LDL Cholesterol levels are recommended to be < 70 mg/dL Cholesterol in LDL/Cholesterol in HDL [Mass ratio] 1.07 {ratio} NINF - 2.54 [facility] Comment on above: Reference: 1. National Cholesterol Education Program ATP III Guideline At-A-Glance Quick Desk Reference: National Heart, Lung, and Blood [place]. National Institutes of Health. 2001: NIH Publication No. 01-3305. 2. An International Atherosclerosis Society position paper: global recommendations for the management of dyslipidemia: executive summary, Atherosclerosis. 2014: 232(2):410-413. Cholesterol in VLDL [Mass/Vol] 42 mg/dL High NINF - 30 mg/dL [facility] Cholesterol non HDL [Mass/Vol] 74 mg/dL NINF - 130 mg/dL [facility] Comment on above: <130 mg/dL, Optimal 130-159 mg/dL, Near optimal/above optimal 160-189 mg/dL, Borderline high 190-219 mg/dL, High >219 mg/dL, Very high Secondary prevention optimal non HDL Cholesterol levels are recommended to be <100 mg/dL Cholesterol.total/Livia sterol in HDL [Mass ratio] 3.47 {ratio} NINF - 5.10 [facility] Fasting Time 12 hrs [facility] Triglyceride [Mass/Vol] 211 mg/dL High NINF - 150 mg/dL [facility] Comment on above: <150 mg/dL, Normal 150-199 mg/dL, Borderline high 200-499 mg/dL, High >499 mg/dL, Very high Cholesterol [Mass/Vol] 104 mg/dL Normal <200 [facility] Comment on above: Order Comment: Speci men Type: BLOOD SPECIMENOrdering Facility: [facility] Address: [address] [place] [address] Result Comment: <200 mg/dL, Desirable 200-239 mg/dL, Borderline high >239 mg/dL, High Performed By: #### 3 016-3, 02641-2, 99280-1, 3040-3 ####[facility] LABCLIA [id number] [place] [address] [facility] Cholesterol in HDL [Mass/Vol] 30 mg/dL Low >39 [facility] Comment on above: Order Comment: Corbyi men Type: BLOOD SPECIMENOrdering Facility: [facility] Address: [address] [place] [address] Result Comment: 40-5 9 mg/dL, Acceptable >59 mg/dL, High: Negative risk factor for coronary heart disease <40 mg/dL, Low: Positive risk factor for coronary heart disease Performed By: #### 3 016-3, 25311-8, 66883-7, 3040-3 ####[facility] LABCLIA [id number] [place] [address] [facility] Cholesterol in LDL [Mass/Vol] 32 mg/dL Normal <100 [facility] Comment on above: Order Comment: Speci eliu Type: BLOOD SPECIMENOrdering Facility: [facility] Address: [address] [place] [address] Result Comment: <100 mg/dL, Optimal 100-129 mg/dL, Near optimal/above optimal 130-159 mg/dL, Borderline high 160-189 mg/dL, High >189 mg/dL, Very high Secondary prevention optimal LDL Cholesterol levels are recommended to be < 70 mg/dL Performed By: #### 3 016-3, 50010-8, 82387-8, 3040-3 ####[facility] LABCLIA [id number] [place] [address] [facility] Cholesterol in LDL/Cholesterol in HDL [Mass ratio] 1.07 {ratio} Normal <2.54 [facility] Comment on above: Order Comment: Gini nowak Type: BLOOD SPECIMENOrdering Facility: [facility] Address: [address] [place] [address] Result Comment: Refgiancarlo murillo: 1. National Cholesterol Education Program ATP III Guideline At-A-Glance Quick Desk Reference: National Heart, Lung, and Blood [place]. National Institutes of Health. 2001: NIH Publication No. 01-3305. 2. An International Atherosclerosis Society position paper: global recommendations for the management of dyslipidemia: executive summary, Atherosclerosis. 2014: 232(2):410-413. Performed By: #### 3 016-3, 56710-0, 42154-3, 3040-3 ####[facility] LABCLIA [id number] [place] [address] [place] Cholesterol in VLDL [Mass/Vol] 42 mg/dL High <30 [facility] Comment on above: Order Comment: Speci men Type: BLOOD SPECIMENOrdering Facility: [facility] Address: [address] [place] [address] Performed By: #### 3 016-3, 35051-3, 43941-0, 3040-3 ####[facility] LABCLIA [id number] [place] [address] [place] [facility] Cholesterol non HDL [Mass/Vol] 74 mg/dL Normal <130 [facility] Comment on above: Order Comment: Speci men Type: BLOOD SPECIMENOrdering Facility: [facility] Address: [address] [place] [address] Result Comment: <130 mg/dL, Optimal 130-159 mg/dL, Near optimal/above optimal 160-189 mg/dL, Borderline high 190-219 mg/dL, High >219 mg/dL, Very high Secondary prevention optimal non HDL Cholesterol levels are recommended to be <100 mg/dL Performed By: #### 3 016-3, 31207-6, 94295-2, 3040-3 ####[facility] LABCLIA [id number] [place] [address] [place] Cholesterol.total/Livia sterol in HDL [Mass ratio] 3.47 {ratio} Normal <5.10 [facility] Comment on above: Order Comment: Speci men Type: BLOOD SPECIMENOrdering Facility: [facility] Address: [address] [place] [address] Performed By: #### 3 016-3, 99819-3, 02018-6, 3040-3 ####[facility] LABCLIA [id number] [place] [address] [facility] [place] FASTING TIME 12 hrs Normal [facility] Comment on above: Order Comment: Speci men Type: BLOOD SPECIMENOrdering Facility: [facility] Address: [address] [place] [address] Performed By: #### 3 016-3, 18931-4, 62758-0, 3040-3 ####[facility] LABCLIA [id number] [place] [address] [facility] Triglyceride [Mass/Vol] 211 mg/dL High <150 [facility] Comment on above: Order Comment: Speci men Type: BLOOD SPECIMENOrdering Facility: [facility] Address: [address] [place] [address] Result Comment: <150 mg/dL, Normal 150-199 mg/dL, Borderline high 200-499 mg/dL, High >499 mg/dL, Very high Performed By: #### 3 016-3, 74583-6, 28861-6, 3040-3 ####[facility] LABCLIA [id number] [place] [address] [facility] No Panel Informationon 08-08 Interpretation and review of laboratory results Abnormal [facility] PSA/PROSTATE SPECIFIC ANTIGE N SCREENINGon 08-09-2023 Prostate specific Ag [Mass/Vol] 0.78 ng/mL Normal <2.60 [facility] Comment on above: Order Comment: Speci men Type: BLOOD SPECIMENOrdering Facility: [facility] Address: [address] [place] [address] Result Comment: Tota l PSA test methodology used is the Electrochemiluminescence Immunoassay by [employer]. Total PSA values by differing methodologies cannot be interchanged. Performed By: #### 2 276-4, 19352-4, PSAS1 ####[facility] LABORATORYCLIA [id number] [place] [id number] [place] THYROID STIMULATING HORMONEo n 08-09-2023 TSH Qn 1.170 m[IU]/L [facility] TSH Qnon 08-09-2023 Interpretation and review of laboratory results Normal [facility] TSH SerPl-aCncon 08-09-2023 TSH Qn 1.170 m[IU]/L Normal 0.270-4.200 [facility] Comment on above: Order Comment: Speci men Type: BLOOD SPECIMENOrdering Facility: [facility] Address: [address] [place] [address] [place] [address] Performed By: #### 3 016-3, 98190-1, 76262-7, 3040-3 ####[facility] LABCLIA [id number] [place] [address] [place] UA DIP, URINE (POC)on 2023 BILIRUBIN UA (POCT) Negative Negative [facility] CLARITY UA (POCT) Cloudy [facility] COLOR UA (POCT) Other [facility] GLUCOSE UA (POCT) 500 mg/dL Abnormal Negative [facility] Hemoglobin Ql (U) Trace-intact Abnormal Negative [facility] Interpretation and review of laboratory results Abnormal [facility] KETONE UA (POCT) Negative Negative mg/dL [facility] LEUKOCYTES UA (POCT) Small Abnormal Negative [facility] NITRITE UA (POCT) Negative Negative [facility] PH UA (POCT) >=9.0 Abnormal 4.5 - 8.0 [facility] Protein Ql (U) 30 mg/dL Abnormal Negative [facility] SPECIFIC GRAVITY UA (POCT) 1.015 1.005 - 1.030 [facility] UROBILINOGEN UA (POCT) 0.2 Orin l E.U./dL [facility] Location:[facility], [address] [place] [address], [address] [facility] POINT OF CARE [facility] Vit B12 [facility] 024 Cobalamin (Vitamin B12) [Mass/Vol] 1523 pg/mL High 232-1245 [facility] Comment on above: Order Comment: Speci men Type: BLOOD SPECIMENOrdering Facility: [facility] Address: [facility] [place] [address] Performed By: #### 3 1201-7, 2132-9 ####[facility] LABORATORYCLIA [id number] [place] [address] [place] Absolute lymphocyte countOrd ered By: Refugio Rojas on 05-20-2023 Lymphocytes Auto (Unsp spec) [#/Vol] 1.20 10*3/uL 0.83-4.51 [facility] Automated lymphocyte count a s percentage of total leukocytesOrdered By: Refugio Rojas on 05-20-2023 Lymphocytes/100 WBC Auto (Unsp spec) 9.8 % 19-41 [facility] Basophil percentageOrdered B y: Refugio Rojas on 05-20-2023 Basophil percentage 8.5 g/dL 13.0-16.5 [facility] Basophils (Bld) [#/Vol] 12.2 10*3/uL 4.4-11.0 [facility] Basophils (Bld) [#/Vol] 10.1 10*3/uL 2.0-7.7 [facility] Basophils/100 WBC (Bld) 82.4 % 47-70 [facility] Basophils/100 WBC (Bld) 5.6 % 0-10 [facility] Basophils/100 WBC (Bld) 0.7 % 0-1 [facility] Basophil percentageOrdered B y: Estefany Donnelly on 05-20-2023 Basophil percentage 145 mg/dL 74-106 [facility] Basophil percentage 3.1 mg/dL 2.5-4.9 [facility] Basophil percentage 139 mmol/L 136-145 [facility] Basophil percentage 4.7 mmol/L 3.5-5.1 [facility] Basophil percentage 109 mmol/L 98-107 [facility] Blood manual differential co mment interpretation (narrative result)Ordered By: Refugio Rojas on 05-20-2023 Manual differential comment Jose Carlos (Bld) [Interp] SCANNED [facility] Determination of erythrocyte mean corpuscular volume (MCV)Ordered By: Refugio Rojas on 05-20-2023 MCV (RBC) [Entitic vol] 101.9 fL 80-94 [facility] Erythrocyte distribution wid th ratioOrdered By: Refugio Rojas on 05-20-2023 Erythrocyte distribution width (RBC) [Ratio] 18.5 % 11.6-14.6 [facility] Erythrocyte distribution wid th standard deviationOrdered By: Refugio Rojas on 05-20-2023 Erythrocyte distribution width (RBC) [Entitic vol] 68.9 fL 35.1-43.9 [facility] Hematocrit Auto (Bld) [Volum e fraction]Ordered By: Refugio Rojas on 05-20-2023 Hematocrit (Bld) [Volume fraction] 26.4 % 40-54 [facility] Immature granulocytes/100 WB C Auto (Bld)Ordered By: Refugio Rojas on 05-20-2023 Immature granulocytes/100 WBC (Bld) 0.800 % 0.0-0.9 [facility] No Panel InformationOrdered By: Refugio Rojas on 05-20-2023 32.8 pg 27.0-32.0 [facility] 32.2 g/dL 32-36 [facility] 264 K/mm3 150-450 [facility] 11.9 fl 6.2-12.0 [facility] 0 % 0-5 [facility] 1+ [facility] No Panel InformationOrdered By: Estefany Donnelly on 05-20-2023 35 mL/min >60 [facility] 42 mL/min >60 [facility] 40.22 ml/min [facility] 9.1 RATIO 10-20 [facility] 28.0 mmol/L 21.0-32.0 [facility] RBC Auto (Bld) [#/Vol]Ordere d By: Refugio Rojas on 05-20-2023 RBC (Bld) [#/Vol] 2.59 10*6/uL 4.6-6.2 [facility] Serum or plasma calcium luciana urement (mass/volume)Ordered By: Estefany Donnelly on 05-20-2023 Calcium [Mass/Vol] 7.8 mg/dL 8.5-10.1 [facility] Serum or plasma creatinine m easurement (mass/volume)Ordered By: Estefany Donnelly on 05-20-2023 Creatinine [Mass/Vol] 2.08 mg/dL 0.70-1.30 [facility] Serum or plasma urea nitroge n measurement (mass/volume)Ordered By: Estefany Donnelly on 05-20-2023 Urea nitrogen [Mass/Vol] 19 mg/dL 7-18 [facility] Thin prep Papanicolaou smear with manual screeningOrdered By: Refugio Rojas on 05-20-2023 Thin prep Papanicolaou smear with manual screening 265 mg/dL 74-106 [facility] Thin prep Papanicolaou smear with manual screeningOrdered By: Estefany Donnelly on 05-20-2023 Thin prep Papanicolaou smear with manual screening 1.4 g/dL 3.2-5.0 [facility] Thin prep Papanicolaou smear with manual screeningOrdered By: Refugio Rojas on 05-19-2023 Thin prep Papanicolaou smear with manual screening 2 5-15 [facility] Iron measurement (mass/mass) Ordered By: Conrado Morel on 05-17-2023 Iron (Unsp spec) [Mass/Mass] 28 ug/dL 65-175 [facility] No Panel InformationOrdered By: Conrado Morel on 05-17-2023 > 2000 pg/mL 211-911 [facility] 45 ug/dL 250-450 [facility] 419 ng/mL 26-388 [facility] Serum or plasma iron saturat ion measurement (mass fraction)Ordered By: Conrado Morel on 05-17-2023 Iron saturation [Mass fraction] 62.2 % 15.0-55.0 [facility] Basophil percentageOrdered B y: Conrado Morel on 05-16-2023 Basophil percentage 4.6 g/dL 6.4-8.2 [facility] Basophil percentage 0.40 mg/dL 0.20-1.00 [facility] Lower GI hemoglobin IA Ql (S tl)Ordered By: Conrado Morel on 05-16-2023 Stool gastrointestinal hemoglobin detection by immunologic method Positive [facility] No Panel InformationOrdered By: Conrado Morel on 05-16-2023 3.6 g/dL 2.2-4.2 [facility] 0.3 RATIO 0.9-2.4 [facility] 152 U/L 45-117 [facility] 25 U/L 16-61 [facility] 2.2 mg/dL 1.6-2.6 [facility] Thin prep Papanicolaou smear with manual screeningOrdered By: Conrado Morel on 05-16-2023 Thin prep Papanicolaou smear with manual screening 41 U/L 15-37 [facility] Blood platelet adequacy dete ction by light microscopyOrdered By: Conrado Morel on 05-14-2023 Platelets LM Ql (Bld) MKD DEC ADEQ [facility] No Panel InformationOrdered By: Conrado Morel on 05-14-2023 RARE [facility] Review by pathologistOrdered By: Conrado Morel on 05-14-2023 Pathologist review Jose Carlos (Unsp spec) [Interp] Reviewed [facility] Assessment of wrist artery p atency prior to arterial punctureOrdered By: Conrado Morel on 05-12-2023 Arterial patency Wrist artery --pre arterial puncture Positive [facility] Base excessOrdered By: Conrado Morel on 05-12-2023 Base excess Calc (BldV) [Moles/Vol] 6 mmol/L -2-2 [facility] Basophil percentageOrdered B y: Iman Aguayo on 05-12-2023 Basophil percentage 27.0 umol/L 11-32 [facility] Basophil percentageOrdered B y: Conrado Morel on 05-12-2023 Basophil percentage 32 mmol/L [facility] Basophils/100 WBC (Bld) 98 % 95-99 [facility] Hemoglobin in reticulocytes (mass per reticulocyte)Ordered By: Conrado Mroel on 05-12-2023 Hemoglobin (Reticulocytes) [Entitic mass] 31.7 pg 30-35 [facility] Immature platelet fractionOr dered By: Conrado Morel on 05-12-2023 Platelets reticulated/100 platelets Auto (Bld) 10.0 % 1.0-7.9 [facility] Measurement, pHOrdered By: Viola Morel on 05-12-2023 pH (Unsp spec) 7.42 [pH] 7.35-7.45 [facility] No Panel InformationOrdered By: Conrado Morel on 05-12-2023 8.50 % 3.00-15.90 [facility] ART [facility] R Radial [facility] NIV [facility] BiPAP [facility] 30.0 [facility] 16/8 14 30% [facility] 47.3 mmHg 35-45 [facility] 112 mmHG 75-100 [facility] 30.7 mmol/L 22-26 [facility] Reticulocytes Auto (Bld) [#/ Vol]Ordered By: Conrado Morel on 05-12-2023 Reticulocytes/100 RBC (Bld) 1.44 % 0.5-1.5 [facility] Bacteria identified Cx Nom ( U)Ordered By: Conrado Morel on 05-10-2023 Culture, urine Escherichia coli [facility] Basophil percentageOrdered B y: Conrado Morel on 05-10-2023 Basophil percentage 3.0 mmol/L 0.4-2.0 [facility] No Panel InformationOrdered By: Barry Sheehan on 05-10-2023 Negative Negative [facility] No Panel InformationOrdered By: Conrado Morel on 05-10-2023 No growth in 5 days. [facility] Serum or plasma thyroid stim ulating hormone (TSH) measurement (units/volume)Ordered By: Conrado Fraser on 05-10-2023 TSH Qn 0.89 uIU/mL 0.358-3.74 [facility] Absolute lymphocyte countOrd ered By: Jacky Arevalo on 05-09-2023 Lymphocytes Auto (Unsp spec) [#/Vol] 0.35 10*3/uL 0.83-4.51 [facility] Automated lymphocyte count a s percentage of total leukocytesOrdered By: Jacky Arevalo on 05-09-2023 Lymphocytes/100 WBC Auto (Unsp spec) 2.7 % 19-41 [facility] Basophil percentageOrdered B y: Jacky Arevalo on 05-09-2023 Basophil percentage 50-100 SEEN /hpf 0-5 [facility] Basophils/100 WBC (Bld) 0.5 % 0-1 [facility] Bilirubin [Mass/Vol] 1.00 mg/dL 0.20-1.00 [facility] Comment on above: For patients on eltr ombopag therapy, use of Dimension [place] TBIL is not recommended. Chloride [Moles/Vol] 92 mmol/L 98-107 [facility] Eosinophils/100 WBC (Bld) 0.0 % 0-5 [facility] Glucose [Mass/Vol] 209 mg/dL 74-106 [facility] Comment on above: Glucose result great er than or equal to 200 mg/dLsuggests DIABETES MELLITUS per A.D.A. criteria. Hemoglobin (Bld) [Mass/Vol] 11.2 g/dL 13.0-16.5 [facility] Monocytes/100 WBC (Bld) 3.2 % 0-10 [facility] Neutrophils (Bld) [#/Vol] 12.0 10*3/uL 2.0-7.7 [facility] Neutrophils/100 WBC (Bld) 92.8 % 47-70 [facility] Potassium [Moles/Vol] 4.0 mmol/L 3.5-5.1 [facility] Comment on above: Slight Hemolysis, Re sult may be falsely increased. Protein [Mass/Vol] 5.4 g/dL 6.4-8.2 [facility] Sodium [Moles/Vol] 137 mmol/L 136-145 [facility] WBC (Bld) [#/Vol] 13.0 10*3/uL 4.4-11.0 [facility] Bilirubin Test strip Ql (U)O rdered By: Jacky Arevalo on 05-09-2023 Bilirubin Ql (U) Negative Negative [facility] Blood platelet adequacy dete ction by light microscopyOrdered By: Jacky Arevalo on 05-09-2023 Platelets LM Ql (Bld) ADEQUATE ADEQ [facility] Determination of erythrocyte mean corpuscular volume (MCV)Ordered By: Jacky Arevalo on 05-09-2023 MCV (RBC) [Entitic vol] 104.0 fL 80-94 [facility] Direct bilirubinOrdered By: Jacky Arevalo on 05-09-2023 Bilirubin.direct [Mass/Vol] 0.48 mg/dL 0.00-0.30 [facility] Erythrocyte distribution wid th ratioOrdered By: Jacky Arevalo on 05-09-2023 Erythrocyte distribution width (RBC) [Ratio] 15.7 % 11.6-14.6 [facility] Erythrocyte distribution wid th standard deviationOrdered By: Jacky Arevalo on 05-09-2023 Erythrocyte distribution width (RBC) [Entitic vol] 59.7 fL 35.1-43.9 [facility] Hematocrit Auto (Bld) [Volum e fraction]Ordered By: Jacky Arevalo on 05-09-2023 Hematocrit (Bld) [Volume fraction] 33.8 % 40-54 [facility] Immature granulocytes/100 WB C Auto (Bld)Ordered By: Jacky Arevalo on 05-09-2023 Immature granulocytes/100 WBC (Bld) 0.800 % 0.0-0.9 [facility] Comment on above: IG% - Immature Granu locytes (promyelocytes, myelocytes and metamyelocytes) > 1% indicates that a LEFT SHIFT is Present. Ketones Test strip Ql (U)Ord ered By: Jacky Arevalo on 05-09-2023 Ketones Ql (U) Negative Negative [facility] Laboratory - Chemistry and C hemistry - challengeOrdered By: Jacky Arevalo on 05-09-2023 ALP [Catalytic activity/Vol] 212 U/L 45-117 [facility] ALT [Catalytic activity/Vol] 56 U/L 16-61 [facility] CO2 [Moles/Vol] 36.0 mmol/L 21.0-32.0 [facility] Globulin (S) [Mass/Vol] 3.9 g/dL 2.2-4.2 [facility] Lipase [Catalytic activity/Vol] U/L 13-75 [facility] Comment on above: Please note:LIPASE r evised reference range effective 22. New Lipase methodology. Expected to produce lower values than the previous assay method. NEW Reference Range: 13 - 75 U/L Urea nitrogen/Creatinine [Mass ratio] 6.0 mg/mg 10-20 [facility] Laboratory - CoagulationOrde red By: Jacky Arevalo on 05-09-2023 INR Coag (Bld) [Relative time] 2.0 {INR} [facility] PT Coag (PPP) [Time] 22.6 s 11.7-14.9 [facility] Laboratory - Hematology and Cell countsOrdered By: Jacky Arevalo on 05-09-2023 MCH (RBC) [Entitic mass] 34.5 pg 27.0-32.0 [facility] MCHC (RBC) [Mass/Vol] 33.1 g/dL 32-36 [facility] Nucleated RBC/100 WBC (Bld) [Ratio] 0 % 0-5 [facility] Platelet mean volume (Bld) [Entitic vol] 12.3 fL 6.2-12.0 [facility] Platelets (Bld) [#/Vol] 133 10*3/uL 150-450 [facility] Macrocytes detectionOrdered By: Jacky Arevalo on 05-09-2023 Macrocytes Ql (Bld) 1+ [facility] Mucus LM Ql (Urine sed)Order ed By: Jacky Arevalo on 05-09-2023 Mucus Ql (Urine sed) 0 SEEN /hpf [facility] Nitrite Test strip Ql (U)Ord ered By: Jacky Arevalo on 05-09-2023 Nitrite Ql (U) Negative Negative [facility] No Panel InformationOrdered By: Jacky Arevalo on 05-09-2023 Urine RBC 0-5 SEEN /hpf 0-5 [facility] 0-5 SEEN /hpf 0-5 [facility] 22.6 SECONDS 11.7-14.9 [facility] 2.0 [facility] Estimated Creatinine Clearance Calc 55.78 ml/min [facility] Estimated GFR (MDRD) Amer 61 mL/min >60 [facility] Comment on above: GFR Calc Estimated GFR (MDRD) Non-Af Amer 51 mL/min >60 [facility] Comment on above: Non- GFR Calc < 10 U/L 13-75 [facility] No Panel InformationOrdered By: Conrado Fraser on 05-09-2023 [facility] Negative < 50 ng/mL [facility] Positive < 300 ng/mL [facility] Protein Test strip Ql (U)Ord ered By: Jacky Arevalo on 05-09-2023 Protein Ql (U) 100 mg/dl Negative [facility] RBC Auto (Bld) [#/Vol]Ordere d By: Jacky Arevalo on 05-09-2023 RBC (Bld) [#/Vol] 3.25 10*6/uL 4.6-6.2 [facility] Serum or plasma calcium luciana urement (mass/volume)Ordered By: Jacky Arevalo on 05-09-2023 Calcium [Mass/Vol] 8.0 mg/dL 8.5-10.1 [facility] Serum or plasma creatinine m easurement (mass/volume)Ordered By: Jacky Arevalo on 05-09-2023 Creatinine [Mass/Vol] 1.50 mg/dL 0.70-1.30 [facility] Comment on above: The validity of the calculated GFR & GFRAA in patients over 70 years has not been determined. Clinical correlation is essential. Serum or plasma transthyreti n measurement (mass/volume)Ordered By: Conrado Fraser on 05-09-2023 Prealbumin [Mass/Vol] 8.0 mg/dL 20.0-40.0 [facility] Serum or plasma urea nitroge n measurement (mass/volume)Ordered By: Jacky Arevalo on 05-09-2023 Urea nitrogen [Mass/Vol] 9 mg/dL 7-18 [facility] Squamous epithelial cells de tection in urine sediment by light microscopyOrdered By: Jacky Arevalo on 05-09-2023 Epithelial cells.squamous LM Ql (Urine sed) 0 SEEN /hpf 0-5 [facility] Thin prep Papanicolaou smear with manual screeningOrdered By: Jacky Arevalo on 05-09-2023 Thin prep Papanicolaou smear with manual screening 1.5 g/dL 3.2-5.0 [facility] Thin prep Papanicolaou smear with manual screening 220 U/L 15-37 [facility] Comment on above: Slight Hemolysis, Re sult may be falsely increased. Thin prep Papanicolaou smear with manual screening 9 5-15 [facility] Urine blood detectionOrdered By: Jacky Arevalo on 05-09-2023 RBC Ql (U) 250 /ul Negative [facility] Urine clarityOrdered By: Lala Arevalo on 05-09-2023 Clarity (U) Sl. Cloudy Clear [facility] Urine color determinationOrd ered By: Jacky Arevalo on 05-09-2023 Color (U) Yellow Yellow [facility] Urine glucose detectionOrder ed By: Jacky Arevalo on 05-09-2023 Glucose Ql (U) Normal mg/dl Normal [facility] Urine leukocyte esterase det ection by dipstickOrdered By: Jacky Arevalo on 05-09-2023 Leukocyte esterase Test strip Ql (U) 500 /ul Negative [facility] Urine pHOrdered By: Jacky hay on 05-09-2023 pH (U) 8.0 [pH] 5.0 - 8.0 [facility] Urine phencyclidine (PCP) de tectionOrdered By: Conrado Fraser on 05-09-2023 Phencyclidine Ql (U) Negative < 25 ng/mL [facility] Urine sediment bacteria coun t by microscopy (number/high power field)Ordered By: Jacky Arevalo on 05-09-2023 Bacteria LM.HPF (Urine sed) [#/Area] 1 /[HPF] None Seen [facility] Urine specific gravity measu rementOrdered By: Jacky Arevalo on 05-09-2023 Specific gravity (U) [Rel density] 1.015 1.002-1.030 [facility] Urine urobilinogen measureme ntOrdered By: Jacky Arevalo on 05-09-2023 Urobilinogen Ql (U) Normal mg/dl Normal [facility] Thin prep Papanicolaou smear with manual screeningOrdered By: Ashley Alvarado on 04-27-2023 Thin prep Papanicolaou smear with manual screening 104 mg/dL 74-106 [facility] Comment on above: MANAGEMENT OF PATIEN T CARE PER NURSING PROTOCOL Basophil percentageOrdered B y: Ashley Alvarado on 04-24-2023 Basophil percentage 73 mg/dL <200 [facility] Basophil percentage 122 mg/dL <199 [facility] Cholesterol [Mass/Vol] 73 mg/dL <200 [facility] Comment on above: <200 mg/dL Desirable 200-240 mg/dL Borderline >240 mg/dL High Risk Triglyceride [Mass/Vol] 122 mg/dL <199 [facility] Comment on above: The drugs N-Acetylcy steine and Metamizole may falsely depress this assay.Serum Triglycerides Reference Interval Normal <150 mg/dL Borderline high 150 - 199 mg/dL High 200 - 499 mg/dL Very High > or = 500 mg/dL Laboratory - Chemistry and C hemistry - challengeOrdered By: Ashley Alvarado on 04-24-2023 Cholesterol in HDL [Mass/Vol] 23 mg/dL >40 [facility] Comment on above: The drugs N-Acetylcy steine and Metamizole may falsely depress this assay. Reference Range HDL <40 mg/dL Low HDL Cholesterol HDL >or= 60 mg/dL High HDL Cholesterol Cholesterol in LDL [Mass/Vol] 26 mg/dL 0-130 [facility] No Panel InformationOrdered By: Ashley Alvarado on 04-24-2023 VLDL Cholesterol 24 mg/dL 5-40 [facility] 23 mg/dL >40 [facility] 26 mg/dL 0-130 [facility] 24 mg/dL 5-40 [facility] Basophil percentageOrdered B y: Conrado Fraser on 04-22-2023 Basophil percentage 0 SEEN /hpf 0-5 [facility] Bilirubin Test strip Ql (U)O rdered By: Conrado Fraser on 04-22-2023 Bilirubin Ql (U) Negative Negative [facility] Ketones Test strip Ql (U)Ord ered By: Conrado Fraser on 04-22-2023 Ketones Ql (U) Negative Negative [facility] Mucus LM Ql (Urine sed)Order ed By: Conrado Fraser on 04-22-2023 Mucus Ql (Urine sed) 0 SEEN /hpf [facility] Nitrite Test strip Ql (U)Ord ered By: Conrado Fraser on 04-22-2023 Nitrite Ql (U) Negative Negative [facility] No Panel InformationOrdered By: Conrado Fraser on 04-22-2023 Urine RBC 0-5 SEEN /hpf 0-5 [facility] 0-5 SEEN /hpf 0-5 [facility] Protein Test strip Ql (U)Ord ered By: Conrado Fraser on 04-22-2023 Protein Ql (U) 15 mg/dl Negative [facility] Squamous epithelial cells de tection in urine sediment by light microscopyOrdered By: Conrado Fraser on 04-22-2023 Epithelial cells.squamous LM Ql (Urine sed) 5-10 SEEN /hpf 0-5 [facility] Urine blood detectionOrdered By: Conrado Fraser on 04-22-2023 RBC Ql (U) Negative Negative [facility] Urine clarityOrdered By: Beck Fraser on 04-22-2023 Clarity (U) Clear Clear [facility] Urine color determinationOrd ered By: Conrado Fraser on 04-22-2023 Color (U) Yellow Yellow [facility] Urine glucose detectionOrder ed By: Conrado Fraser on 04-22-2023 Glucose Ql (U) 100 mg/dl Normal [facility] Urine leukocyte esterase det ection by dipstickOrdered By: Conrado Fraser on 04-22-2023 Leukocyte esterase Test strip Ql (U) 25 /ul Negative [facility] Urine pHOrdered By: Conrado arredondo on 04-22-2023 pH (U) 8.0 [pH] 5.0 - 8.0 [facility] Urine sediment bacteria coun t by microscopy (number/high power field)Ordered By: Conrado Fraser on 04-22-2023 Bacteria LM.HPF (Urine sed) [#/Area] 0 /[HPF] None Seen [facility] Urine specific gravity measu rementOrdered By: Conrado Fraser on 04-22-2023 Specific gravity (U) [Rel density] 1.015 1.002-1.030 [facility] Urine urobilinogen measureme ntOrdered By: Conrado Fraser on 04-22-2023 Urobilinogen Ql (U) Normal mg/dl Normal [facility] Basophil percentageOrdered B y: Lucas Frausto on 04-21-2023 Basophil percentage 106 mg/dL 74-106 [facility] Basophil percentage 4.1 g/dL 6.4-8.2 [facility] Basophil percentage 1.00 mg/dL 0.20-1.00 [facility] Basophil percentage 143 mmol/L 136-145 [facility] Basophil percentage 3.6 mmol/L 3.5-5.1 [facility] Basophil percentage 106 mmol/L 98-107 [facility] Bilirubin [Mass/Vol] 1.00 mg/dL 0.20-1.00 [facility] Comment on above: For patients on eltr ombopag therapy, use of Dimension [place] TBIL is not recommended. Chloride [Moles/Vol] 106 mmol/L 98-107 [facility] Glucose [Mass/Vol] 106 mg/dL 74-106 [facility] Comment on above: Fasting Glucose resu lt from 100 to 125 mg/dL suggests IMPAIRED HOMEOSTASIS per A.D.A. criteria. Potassium [Moles/Vol] 3.6 mmol/L 3.5-5.1 [facility] Protein [Mass/Vol] 4.1 g/dL 6.4-8.2 [facility] Sodium [Moles/Vol] 143 mmol/L 136-145 [facility] Laboratory - Chemistry and C hemistry - challengeOrdered By: Lucas Frausto on 04-21-2023 Albumin/Globulin [Mass ratio] 0.6 {ratio} 0.9-2.4 [facility] ALP [Catalytic activity/Vol] 158 U/L 45- [facility] ALT [Catalytic activity/Vol] 70 U/L [facility] CO2 [Moles/Vol] 32.0 mmol/L 21.0-32.0 [facility] Globulin (S) [Mass/Vol] 2.5 g/dL 2.2-4.2 [facility] Urea nitrogen/Creatinine [Mass ratio] 5.2 mg/mg - [facility] No Panel InformationOrdered By: Lucas Frausto on 04-21-2023 Estimated Creatinine Clearance Calc 61.74 ml/min [facility] Estimated GFR (MDRD) Amer 83 mL/min >60 [facility] Comment on above: GFR Calc Estimated GFR (MDRD) Non-Af Amer 69 mL/min >60 [facility] Comment on above: Non- GFR Calc Hepatitis A IgM Antibody Negative Negative [facility] Hepatitis B Core IgM Antibody Negative Negative [facility] Hepatitis C Antibody (EIA) Non-Reactive Non Reactive [facility] Hepatitis C Antibody Comment Comment . [facility] Comment on above: Not infected with HC V unless early or acute infection issuspected (which may be delayed in an immunocompromisedindividual), or other evidence exists to indicate HCVinfection.Performed at: [facility] [id number] Director: Agustin Arredondo PhD, Phone: [phone] 69 mL/min >60 [facility] 83 mL/min >60 [facility] 61.74 ml/min [facility] 5.2 RATIO - [facility] 2.5 g/dL 2.2-4.2 [facility] 0.6 RATIO 0.9-2.4 [facility] 158 U/L 45- [facility] 70 U/L [facility] 32.0 mmol/L 21.0-32.0 [facility] Negative Negative [facility] Non-Reactive Non Reactive [facility] Comment . [facility] Serum or plasma calcium luciana urement (mass/volume)Ordered By: Lucas Frausto on 04-21-2023 Calcium [Mass/Vol] 7.3 mg/dL 8.5-10.1 [facility] Serum or plasma creatinine m easurement (mass/volume)Ordered By: Lucas Frausto on 04-21-2023 Creatinine [Mass/Vol] 1.15 mg/dL 0.70-1.30 [facility] Comment on above: The validity of the calculated GFR & GFRAA in patients over 70 years has not been determined. Clinical correlation is essential. Serum or plasma hepatitis B virus surface antigen detection by immunoassayOrdered By: Lucas Frausto on 04-21-2023 HBV surface Ag IA Ql Negative Negative [facility] Serum or plasma urea nitroge n measurement (mass/volume)Ordered By: Lucas Frausto on 04-21-2023 Urea nitrogen [Mass/Vol] 6 mg/dL 7-18 [facility] Thin prep Papanicolaou smear with manual screeningOrdered By: Lucas Frausto on 04-21-2023 Thin prep Papanicolaou smear with manual screening 1.6 g/dL 3.2-5.0 [facility] Thin prep Papanicolaou smear with manual screening 221 U/L 15-37 [facility] Thin prep Papanicolaou smear with manual screening 5 5-15 [facility] Absolute lymphocyte countOrd ered By: Chris Call on 04-20-2023 Lymphocytes Auto (Unsp spec) [#/Vol] 0.90 10*3/uL 0.83-4.51 [facility] Basophil percentageOrdered B y: Chris Call on 04-20-2023 Basophil percentage 11.8 g/dL 13.0-16.5 [facility] Basophils (Bld) [#/Vol] 8.0 10*3/uL 4.4-11.0 [facility] Basophils (Bld) [#/Vol] 6.1 10*3/uL 2.0-7.7 [facility] Basophils/100 WBC (Bld) 0.9 % 0-1 [facility] Basophils/100 WBC (Bld) 76.5 % 47-70 [facility] Basophils/100 WBC (Bld) 11.2 % 19-41 [facility] Basophils/100 WBC (Bld) 10.2 % 0-10 [facility] Basophils/100 WBC (Bld) 0.5 % 0-5 [facility] Eosinophils/100 WBC (Bld) 0.5 % 0-5 [facility] Hemoglobin (Bld) [Mass/Vol] 11.8 g/dL 13.0-16.5 [facility] Lymphocytes/100 WBC (Bld) 11.2 % 19-41 [facility] Monocytes/100 WBC (Bld) 10.2 % 0-10 [facility] Neutrophils (Bld) [#/Vol] 6.1 10*3/uL 2.0-7.7 [facility] Neutrophils/100 WBC (Bld) 76.5 % 47-70 [facility] WBC (Bld) [#/Vol] 8.0 10*3/uL 4.4-11.0 [facility] Determination of erythrocyte mean corpuscular volume (MCV)Ordered By: Chris Call on 04-20-2023 MCV (RBC) [Entitic vol] 102.0 fL 80-94 [facility] Direct bilirubinOrdered By: Chris Call on 04-20-2023 Bilirubin.direct [Mass/Vol] 0.42 mg/dL 0.00-0.30 [facility] Erythrocyte distribution wid th ratioOrdered By: Chris Call on 04-20-2023 Erythrocyte distribution width (RBC) [Ratio] 15.4 % 11.6-14.6 [facility] Hematocrit Auto (Bld) [Volum e fraction]Ordered By: Chris Call on 04-20-2023 Hematocrit (Bld) [Volume fraction] 35.9 % 40-54 [facility] Laboratory - Chemistry and C hemistry - challengeOrdered By: Chris Call on 04-20-2023 Lipase [Catalytic activity/Vol] U/L 13-75 [facility] Comment on above: Please note:LIPASE r evised reference range effective 22. New Lipase methodology. Expected to produce lower values than the previous assay method. NEW Reference Range: 13 - 75 U/L Laboratory - Drug toxicology Ordered By: Chris Call on 04-20-2023 Amphetamines Ql (U) Negative <1000 ng/mL [facility] Benzodiazepines Ql (U) Negative < 200 ng/mL [facility] Cannabinoids Screen Ql (U) Negative < 50 ng/mL [facility] Cocaine Ql (U) Negative < 300 ng/mL [facility] Opiates Ql (U) Negative < 300 ng/mL [facility] Laboratory - Hematology and Cell countsOrdered By: Chris Call on 04-20-2023 Erythrocyte distribution width (RBC) [Entitic vol] 57.8 fL 35.1-43.9 [facility] Immature granulocytes/100 WBC (Bld) 0.700 % 0.0-0.9 [facility] Comment on above: IG% - Immature Granu locytes (promyelocytes, myelocytes and metamyelocytes) > 1% indicates that a LEFT SHIFT is Present. MCH (RBC) [Entitic mass] 33.5 pg 27.0-32.0 [facility] MCHC (RBC) [Mass/Vol] 32.9 g/dL [facility] Platelet mean volume (Bld) [Entitic vol] 10.8 fL 6.2-12.0 [facility] No Panel InformationOrdered By: Chris Call on 04-20-2023 Ethyl Alcohol Level 56.0 mg/dL [facility] Comment on above: The serum:whole bloo d ethanol ratio is approximately 1.14and varies slightly with hematocrit. Medical Alcohol reference interval and critical value innon-tolerant individuals; 50 - 100 Impairment 100 Intoxication 100 - 250 Severe Poisoning 250 - 400 Deep/possible fatal comaRESULT(S) PREVIOUSLY REPORTED ON MANUAL REQUISITION DURINGDOWNTIME. 33.5 pg 27.0-32.0 [facility] 32.9 g/dL -36 [facility] 57.8 fl 35.1-43.9 [facility] 10.8 fl 6.2-12.0 [facility] 0.700 % 0.0-0.9 [facility] < 10 U/L 13 [facility] 56.0 mg/dL [facility] MDMA (Ecstasy) Screen Negative < 500 ng/mL [facility] Urine Barbiturates Screen Negative < 200 ng/mL [facility] Urine Drug Screen Comment [facility] Comment on above: CONFIRMATORY TESTING [...] Methadone Screen Negative < 300 ng/mL [facility] Negative < 50 ng/mL [facility] Platelets bldOrdered By: Fox Call on 04-20-2023 Platelets (Bld) [#/Vol] 132 10*3/uL 150-450 [facility] RBC Auto (Bld) [#/Vol]Ordere d By: Chris Call on 04-20-2023 RBC (Bld) [#/Vol] 3.52 10*6/uL 4.6-6.2 [facility] Urine phencyclidine (PCP) de tectionOrdered By: Chris Clal on 04-20-2023 Phencyclidine Ql (U) Negative < 25 ng/mL [facility] GGTon 04-02-2023 Gamma GT 280 U/L High 15-85 [facility] ([place]) Comment on above: Performed By: #### L RADHA SARGENT MDW, CBC, GFR, CMP, TROPHS, ANEU #### [place] [address] .GFRon 04-01-2023 GFR 77 ml/min/1.73sqm Normal [facility] ([place]) Comment on above: Result Comment: GFR Population [...] MDW, CBC, GFR, CMP, TROPHS, ANEU #### [place] [address] GFR Non- 64 ml/min/1.73sqm Normal [facility] ([place]) Comment on above: Result Comment: GFR Population [...] MDW, CBC, GFR, CMP, TROPHS, ANEU #### [place] [id number] AMYon 04-01-2023 Amylase [Catalytic activity/Vol] 66 U/L Normal 25-115 [facility] ([place]) Comment on above: Performed By: #### L RADHA SARGENT MDW, CBC, GFR, CMP, TROPHS, ANEU #### [address] 04-01-2023 Albumin Level 2.3 G/dL Low 3.4-4.8 [facility] ([place]) Comment on above: Performed By: #### L RADHA SARGENT MDW, CBC, GFR, CMP, TROPHS, ANEU #### [address] [address] Albumin/Globulin [Mass ratio] 0.7 {ratio} Low 1.1-2.5 [facility] ([place]) Comment on above: Performed By: #### L RADHA SARGENT MDW, CBC, GFR, CMP, TROPHS, ANEU #### [address] [address] ALP [Catalytic activity/Vol] 161 U/L High 40-135 [facility] ([place]) Comment on above: Performed By: #### L RADHA SARGENT MDW, CBC, GFR, CMP, TROPHS, ANEU #### [address] [address] ALT [Catalytic activity/Vol] 47 U/L Normal 16-63 [facility] ([place]) Comment on above: Performed By: #### L RADHA SARGENT MDW, CBC, GFR, CMP, TROPHS, ANEU #### [address] [address] AST [Catalytic activity/Vol] 56 U/L High 10-40 [facility] ([place]) Comment on above: Performed By: #### L RADHA SARGENT MDW, CBC, GFR, CMP, TROPHS, ANEU #### [address] [address] Bili Total 0.5 mg/dL Normal 0.2-1.0 [facility] ([place]) Comment on above: Result Comment: Use of this assay is not recommended for patients undergoing treatment with eltrombopag due to the potential for falsely elevated results. Performed By: #### L RADHA SARGENT MDW, CBC, GFR, CMP, TROPHS, ANEU #### [address] [address] BUN/Creatinine Ratio 6 ratio Low 7-27 [facility] ([place]) Comment on above: Performed By: #### L RADHA SARGENT MDW, CBC, GFR, CMP, TROPHS, ANEU #### [address] [address] Calcium [Mass/Vol] 8.2 mg/dL Low 8.4-10.2 [facility] ([place]) Comment on above: Performed By: #### L RADHA SARGENT MDW, CBC, GFR, CMP, TROPHS, ANEU #### [address] [address] Chloride [Moles/Vol] 105 mmol/L Normal 98-107 [facility] ([place]) Comment on above: Performed By: #### L RADHA SARGENT MDW, CBC, GFR, CMP, TROPHS, ANEU #### [address] [address] CO2 [Moles/Vol] 28 mmol/L Normal 23-31 [facility] ([place]) Comment on above: Performed By: #### L RADHA SARGENT MDW, CBC, GFR, CMP, TROPHS, ANEU #### [address] [address] Creatinine [Mass/Vol] 1.17 mg/dL Normal 0.70-1.30 [facility] ([place]) Comment on above: Performed By: #### L RADHA SARGENT MDW, CBC, GFR, CMP, TROPHS, ANEU #### [address] [address] Electrolyte Balance 5.0 mEq/L Normal 4.0-15.0 [facility] ([place]) Comment on above: Performed By: #### L RADHA SARGENT MDW, CBC, GFR, CMP, TROPHS, ANEU #### [address] [address] Globulin 3.1 G/dL Normal [facility] ([place]) Comment on above: Performed By: #### L RADHA SARGENT MDW, CBC, GFR, CMP, TROPHS, ANEU #### [address] [address] Glucose [Mass/Vol] 211 mg/dL High 80-115 [facility] ([place]) Comment on above: Performed By: #### L RADHA SARGENT MDW, CBC, GFR, CMP, TROPHS, ANEU #### [place] [id number] Potassium [Moles/Vol] 5.4 mmol/L High 3.5-5.1 [facility] ([place]) Comment on above: Performed By: #### L RADHA SARGENT MDW, CBC, GFR, CMP, TROPHS, ANEU #### [address] [address] Sodium [Moles/Vol] 138 mmol/L Normal 136-145 [facility] ([place]) Comment on above: Performed By: #### L RADHA SARGENT MDW, CBC, GFR, CMP, TROPHS, ANEU #### [place] [id number] Total Protein 5.4 G/dL Low 6.4-8.2 [facility] ([place]) Comment on above: Performed By: #### L RADHA SARGENT MDW, CBC, GFR, CMP, TROPHS, ANEU #### [place] [address] Urea nitrogen [Mass/Vol] 7 mg/dL Normal 7-18 [facility] ([place] Comment on above: Performed By: #### L RADHA SARGENT MDW, CBC, GFR, CMP, TROPHS, ANEU #### [address] [address] FEon 04-01-2023 Iron [Mass/Vol] 79 ug/dL Normal 65-175 [facility] ([place]) Comment on above: Performed By: #### L RADHA SARGENT MDW, CBC, GFR, CMP, TROPHS, ANEU #### [place] [id number] IBCon 04-01-2023 TIBC 118 mcg/dL Low 250-450 [facility] ([place]) Comment on above: Performed By: #### L RADHA SARGENT MDW, CBC, GFR, CMP, TROPHS, ANEU #### [place] [id number] LIPon 04-01-2023 Lipase Level <10 Low 16-77 [facility] ([place]) Comment on above: Performed By: #### L RADHA SARGENT MDW, CBC, GFR, CMP, TROPHS, ANEU #### [address] [address] MGon 04-01-2023 Magnesium [Mass/Vol] 1.9 mg/dL Normal 1.8-2.4 [facility] ([place]) Comment on above: Performed By: #### L RADHA SARGENT MDW, CBC, GFR, CMP, TROPHS, ANEU #### [place] [address] TSHon 04-01-2023 TSH Qn 1.36 m[IU]/L Normal 0.36-3.74 [facility] ([place]) Comment on above: Performed By: #### RADHA COSTA MDW, CBC, GFR, CMP, TROPHS, ANEU #### [place] [address] VIDHon 04-01-2023 Vit. D 25-Hydroxy 41.5 ng/mL Normal [facility] ([place]) Comment on above: Result Comment: Inte rpretive Values Based on Total 25(OH) Vitamin D: Deficient <20 ng/mL Insufficient 20 - <30 ng/mL Sufficient 30-100 ng/mL Performed By: #### L RADHA SARGENT MDW, CBC, GFR, CMP, TROPHS, ANEU #### [place] [address] .Auto Diffon 03-19-2023 Basophil, Absolute 0.0 10 3/mcL Normal 0.0-0.3 [facility] ([place]) Comment on above: Performed By: #### L RADHA SARGENT MDW, CBC, GFR, CMP, TROPHS, ANEU #### [place] [address] Basophils/100 WBC (Bld) 0.8 % Normal 0.0-2.5 [facility] ([place]) Comment on above: Performed By: #### RADHA COSTA MDW, CBC, GFR, CMP, TROPHS, ANEU #### [address] [address] Eosinophil, Absolute 0.1 10 3/mcL Normal 0.0-0.7 [facility] ([place]) Comment on above: Performed By: #### L AC, ADIFF, MDW, CBC, GFR, CMP, TROPHS, ANEU #### [address] [address] [address] Eosinophils/100 WBC (Bld) 2.3 % Normal 0.0-6.0 [facility] ([place]) Comment on above: Performed By: #### L AC, ADIFF, MDW, CBC, GFR, CMP, TROPHS, ANEU #### [address] [address] Lymphocyte, Absolute 1.1 10 3/mcL Normal 0.9-4.3 [facility] ([place]) Comment on above: Performed By: #### L AC, ADIFF, MDW, CBC, GFR, CMP, TROPHS, ANEU #### [address] [address] Lymphocytes/100 WBC (Bld) 18.7 % Low 20.0-40.0 [facility] ([place]) Comment on above: Performed By: #### L AC, ADIFF, MDW, CBC, GFR, CMP, TROPHS, ANEU #### [address] [address] Monocyte, Absolute 0.7 10 3/mcL Normal 0.1-1.4 [facility] ([place]) Comment on above: Performed By: #### L AC, ADBOLIVAR, MDW, CBC, GFR, CMP, TROPHS, ANEU #### [address] [address] Monocytes/100 WBC (Bld) 13.0 % Normal 2.0-13.0 [facility] ([place]) Comment on above: Performed By: #### L AC, ADIFF, MDW, CBC, GFR, CMP, TROPHS, ANEU #### [address] [address] Neutrophils/100 WBC (Bld) 65.2 % Normal 50.0-75.0 [facility] ([place]) Comment on above: Performed By: #### L AC, ADIFF, MDW, CBC, GFR, CMP, TROPHS, ANEU #### [address] [address] .GFRon 03-19-2023 GFR >60 Normal [facility] ([place]) Comment on above: Result Comment: GFR Population [...] MDW, CBC, GFR, CMP, TROPHS, ANEU #### [address] [address] GFR Non- >60 Normal [facility] ([place]) Comment on above: Result Comment: GFR Population [...] MDW, CBC, GFR, CMP, TROPHS, ANEU #### [address] [address] .NEUABSon 03-19-2023 Neutrophil, Absolute 3.7 10 3/mcL Normal 2.3-8.1 [facility] ([place] Comment on above: Performed By: #### L RADHA SARGENT MDW, CBC, GFR, CMP, TROPHS, ANEU #### [address] [address] BMPon 03-19-2023 BUN/Creatinine Ratio 10.2 ratio Normal 10.0-22.0 [facility] ([place]) Comment on above: Performed By: #### L RADHA SARGENT MDW, CBC, GFR, CMP, TROPHS, ANEU #### [address] [address] Calcium [Mass/Vol] 7.9 mg/dL Low 8.7-10.4 [facility] ([place]) Comment on above: Performed By: #### L RADHA SARGENT MDW, CBC, GFR, CMP, TROPHS, ANEU #### [place] [id number] Chloride [Moles/Vol] 111 mmol/L High 98-110 [facility] ([place]) Comment on above: Performed By: #### L RADHA SARGENT MDW, CBC, GFR, CMP, TROPHS, ANEU #### [place] [id number] CO2 [Moles/Vol] 21 mmol/L Low 22-32 [facility] ([place] Comment on above: Performed By: #### L RADHA SARGENT MDW, CBC, GFR, CMP, TROPHS, ANEU #### [address] [address] Creatinine [Mass/Vol] 1.08 mg/dL Normal 0.60-1.40 [facility] ([place] Comment on above: Performed By: #### L RADHA SARGENT MDW, CBC, GFR, CMP, TROPHS, ANEU #### [address] [address] Electrolyte Balance 7.0 mEq/L Normal 4.0-15.0 [facility] ([place] Comment on above: Performed By: #### L RADHA SARGENT MDW, CBC, GFR, CMP, TROPHS, ANEU #### [address] [address] Glucose [Mass/Vol] 74 mg/dL Low 82-115 [facility] ([place] Comment on above: Performed By: #### L RADHA SARGENT MDW, CBC, GFR, CMP, TROPHS, ANEU #### [place] [address] Potassium [Moles/Vol] 4.6 mmol/L Normal 3.5-5.0 [facility] ([place] Comment on above: Performed By: #### L RADHA SARGENT MDW, CBC, GFR, CMP, TROPHS, ANEU #### [place] [address] Sodium [Moles/Vol] 139 mmol/L Normal 136-145 [facility] ([place] Comment on above: Performed By: #### L RADHA SARGENT MDW, CBC, GFR, CMP, TROPHS, ANEU #### [place] [address] Urea nitrogen [Mass/Vol] 11.0 mg/dL Normal 8.0-22.0 [facility] ([place] Comment on above: Performed By: #### L RADHA SARGENT MDW, CBC, GFR, CMP, TROPHS, ANEU #### [place] [address] CBCon 03-19-2023 Erythrocyte distribution width (RBC) [Ratio] 14.6 % Normal 11.5-15.5 [facility] ([place] Comment on above: Performed By: #### L RADHA SARGENT MDW, CBC, GFR, CMP, TROPHS, ANEU #### [place] [address] Hematocrit (Bld) [Volume fraction] 36.3 % Low 40.0-52.0 [facility] ([place] Comment on above: Performed By: #### L RADHA SARGENT MDW, CBC, GFR, CMP, TROPHS, ANEU #### [place] [address] Hgb 12.2 G/dL Low 13.0-17.5 [facility] ([place] Comment on above: Performed By: #### L RADHA SARGENT MDW, CBC, GFR, CMP, TROPHS, ANEU #### [place] [id number] MCH (RBC) [Entitic mass] 34.5 pg High 27.0-33.0 [facility] ([place] Comment on above: Performed By: #### L RADHA SARGENT MDW, CBC, GFR, CMP, TROPHS, ANEU #### [place] [address] MCHC 33.6 G/dL Normal 32.0-36.0 [facility] ([place] Comment on above: Performed By: #### L RADHA SARGENT MDW, CBC, GFR, CMP, TROPHS, ANEU #### [place] [address] MCV (RBC) [Entitic vol] 102.6 fL High 81.0-100.0 A [facility] ([place]) Comment on above: Performed By: #### L RADHA SARGENT MDW, CBC, GFR, CMP, TROPHS, ANEU #### [place] [address] Platelet 165 10 3/mcL Normal 150-450 [facility] ([place] Comment on above: Performed By: #### L RADHA SARGENT MDW, CBC, GFR, CMP, TROPHS, ANEU #### [place] [address] Platelet mean volume (Bld) [Entitic vol] 8.8 fL Normal 6.4-10.5 [facility] ([place] Comment on above: Performed By: #### L RADHA SARGENT MDW, CBC, GFR, CMP, TROPHS, ANEU #### [place] [address] RBC 3.53 10 6/mcL Low 4.50-6.00 [facility] ([place]) Comment on above: Performed By: #### L RADHA SARGENT MDW, CBC, GFR, CMP, TROPHS, ANEU #### [place] [address] WBC 5.7 10 3/mcL Normal 4.5-10.8 [facility] ([place] Comment on above: Performed By: #### L RADHA SARGENT MDW, CBC, GFR, CMP, TROPHS, ANEU #### [facility] [address] [place] [address] LABORATORYOrdered By: Yessica Collazo on 03-19-2023 Blood Glucose Testing Reason Routine (03/19/23 11:18 AM) [facility] Work Phone: Glucose [Mass/Vol] 123 mg/dL High 82 - 115 mg/dL [facility] Work Phone: LABORATORYOrdered By: Esequiel Porter on 03-19-2023 Blood Glucose Testing Reason Routine (03/19/23 8:26 AM) [facility] Work Phone: Glucose [Mass/Vol] 122 mg/dL High 82 - 115 mg/dL [facility] Work Phone: LABORATORYOrdered By: Syd Aguayo on 03-19-2023 Glucose [Mass/Vol] 42 mg/dL Invalid Interpretation Code 82 - 115 mg/dL [facility] Work Phone: LABORATORYOrdered By: SYSTEM SYSTEM [...] (S/P/Bld) [Vol rate/Area] ml/min/1.73sqm Invalid Interpretation Code [facility] Chemistry S Comment on above: Interpretive Data: [...] (S/P/Bld) [Vol rate/Area] ml/min/1.73sqm Invalid Interpretation Code [facility] Chemistry S Comment on above: Interpretive Data: [...] Glucose Testing Reason Routine (03/18/23 9:26 PM) [facility] Work Phone: LABORATORYOrdered By: Lin Hughes on 03-18-2023 Blood Glucose Interventions Retest (03/18/23 8:48 AM) [facility] Work Phone: Blood Glucose Interventions Administered agent to increase blood sugar (03/18/23 7:34 AM) [facility] Work Phone: MRI BRAIN W/O CONTRASTon [...] 03/18/2023 7:45:52 PM Ordering Provider: MARIELY White [facility] ([place]) .Auto Diffon 03-17-2023 Basophil, Absolute 0.1 10 3/mcL Normal 0.0-0.3 [facility] ([place]) Comment on above: Performed By: #### L AC, ADIFF, MDW, CBC, GFR, CMP, TROPHS, ANEU #### [address] [address] Basophils/100 WBC (Bld) 1.3 % Normal 0.0-2.5 A [facility] ([place]) Comment on above: Performed By: #### L BELLE, RADHA, W, CBC, GFR, CMP, TROPHS, ANEU #### [address] [address] Eosinophil, Absolute 0.1 10 3/mcL Normal 0.0-0.7 [facility] ([place]) Comment on above: Performed By: #### L BELLE, RADHA, W, CBC, GFR, CMP, TROPHS, ANEU #### [address] [address] Eosinophils/100 WBC (Bld) 2.6 % Normal 0.0-6.0 [facility] ([place]) Comment on above: Performed By: #### L RADHA SARGENT, W, CBC, GFR, CMP, TROPHS, ANEU #### [address] [address] Lymphocyte, Absolute 1.0 10 3/mcL Normal 0.9-4.3 [facility] ([place]) Comment on above: Performed By: #### L RADHA SARGENT, W, CBC, GFR, CMP, TROPHS, ANEU #### [address] [address] Lymphocytes/100 WBC (Bld) 21.5 % Normal 20.0-40.0 [facility] ([place]) Comment on above: Performed By: #### L RADHA SARGENT, W, CBC, GFR, CMP, TROPHS, ANEU #### [address] [address] Monocyte, Absolute 0.5 10 3/mcL Normal 0.1-1.4 [facility] ([place]) Comment on above: Performed By: #### L BELLE, RADHA, W, CBC, GFR, CMP, TROPHS, ANEU #### [address] [address] Monocytes/100 WBC (Bld) 11.9 % Normal 2.0-13.0 A [facility] ([place] Comment on above: Performed By: #### L RADHA SARGENT MDW, CBC, GFR, CMP, TROPHS, ANEU #### [address] [address] Neutrophils/100 WBC (Bld) 62.7 % Normal 50.0-75.0 [facility] ([place] Comment on above: Performed By: #### L RADHA SARGENT MDW, CBC, GFR, CMP, TROPHS, ANEU #### [address] [address] .GFRon 03-17-2023 GFR >60 Normal [facility] ([place]) Comment on above: Result Comment: GFR Population [...] MDW, CBC, GFR, CMP, TROPHS, ANEU #### [address] [address] GFR Non- >60 Normal [facility] ([place] Comment on above: Result Comment: GFR Population [...] MDW, CBC, GFR, CMP, TROPHS, ANEU #### [address] [address] .NEUABSon 03-17-2023 Neutrophil, Absolute 2.8 10 3/mcL Normal 2.3-8.1 [facility] ([place] Comment on above: Performed By: #### RADHA COSTA MDW, CBC, GFR, CMP, TROPHS, ANEU #### [address] [address] BMPon 03-17-2023 BUN/Creatinine Ratio 10.7 ratio Normal 10.0-22.0 [facility] ([place] Comment on above: Performed By: #### L RADHA SARGENT MDW, CBC, GFR, CMP, TROPHS, ANEU #### [address] [address] Calcium [Mass/Vol] 8.5 mg/dL Low 8.7-10.4 [facility] ([place] Comment on above: Performed By: #### L RADHA SARGENT MDW, CBC, GFR, CMP, TROPHS, ANEU #### [address] [address] Chloride [Moles/Vol] 109 mmol/L Normal 98-110 [facility] ([place] Comment on above: Performed By: #### RADHA COSTA MDW, CBC, GFR, CMP, TROPHS, ANEU #### [address] [address] CO2 [Moles/Vol] 27 mmol/L Normal 22-32 [facility] ([place] Comment on above: Performed By: #### L RADHA SARGENT MDW, CBC, GFR, CMP, TROPHS, ANEU #### [address] [address] Creatinine [Mass/Vol] 0.84 mg/dL Normal 0.60-1.40 [facility] ([place] Comment on above: Performed By: #### L RADHA SARGENT MDW, CBC, GFR, CMP, TROPHS, ANEU #### [place] [address] Electrolyte Balance 3.0 mEq/L Low 4.0-15.0 [facility] ([place] Comment on above: Performed By: #### L RADHA SARGENT MDW, CBC, GFR, CMP, TROPHS, ANEU #### [place] [address] Glucose [Mass/Vol] 69 mg/dL Low 82-115 [facility] ([place] Comment on above: Performed By: #### L RADHA SARGENT MDW, CBC, GFR, CMP, TROPHS, ANEU #### [place] [address] Potassium [Moles/Vol] 4.4 mmol/L Normal 3.5-5.0 [facility] ([place] Comment on above: Performed By: #### L RADHA SARGENT MDW, CBC, GFR, CMP, TROPHS, ANEU #### [place] [address] Sodium [Moles/Vol] 139 mmol/L Normal 136-145 [facility] ([place] Comment on above: Performed By: #### L RADHA SARGENT MDW, CBC, GFR, CMP, TROPHS, ANEU #### [place] [address] Urea nitrogen [Mass/Vol] 9.0 mg/dL Normal 8.0-22.0 [facility] ([place] Comment on above: Performed By: #### L RADHA SARGENT MDW, CBC, GFR, CMP, TROPHS, ANEU #### [place] [address] CBCon 03-17-2023 Erythrocyte distribution width (RBC) [Ratio] 14.3 % Normal 11.5-15.5 [facility] ([place] Comment on above: Performed By: #### L RADHA SARGENT MDW, CBC, GFR, CMP, TROPHS, ANEU #### [facility] [address] [place], [place] [address] Hematocrit (Bld) [Volume fraction] 37.6 % Low 40.0-52.0 [facility] ([place] Comment on above: Performed By: #### L RADHA SARGENT MDW, CBC, GFR, CMP, TROPHS, ANEU #### [address] [address] Hgb 12.7 G/dL Low 13.0-17.5 [facility] ([place] Comment on above: Performed By: #### L RADHA SARGENT MDW, CBC, GFR, CMP, TROPHS, ANEU #### [place] [id number] MCH (RBC) [Entitic mass] 34.2 pg High 27.0-33.0 [facility] ([place] Comment on above: Performed By: #### L RADHA SARGENT MDW, CBC, GFR, CMP, TROPHS, ANEU #### [place] [id number] MCHC 33.7 G/dL Normal 32.0-36.0 [facility] ([place] Comment on above: Performed By: #### L RADHA SARGENT MDW, CBC, GFR, CMP, TROPHS, ANEU #### [place] [id number] MCV (RBC) [Entitic vol] 101.7 fL High 81.0-100.0 A [facility] ([place] Comment on above: Performed By: #### L RADHA SARGENT MDW, CBC, GFR, CMP, TROPHS, ANEU #### [place] [address] Platelet 189 10 3/mcL Normal 150-450 [facility] ([place] Comment on above: Performed By: #### L RADHA SARGENT MDW, CBC, GFR, CMP, TROPHS, ANEU #### [place] [id number] Platelet mean volume (Bld) [Entitic vol] 9.1 fL Normal 6.4-10.5 [facility] ([place] Comment on above: Performed By: #### L RADHA SARGENT MDW, CBC, GFR, CMP, TROPHS, ANEU #### [place] [address] RBC 3.70 10 6/mcL Low 4.50-6.00 [facility] ([place] Comment on above: Performed By: #### L RADHA SARGENT MDW, CBC, GFR, CMP, TROPHS, ANEU #### [place] [id number] WBC 4.4 10 3/mcL Low 4.5-10.8 [facility] ([place] Comment on above: Performed By: #### L RADHA SARGENT MDW, CBC, GFR, CMP, TROPHS, ANEU #### [place] [address] LABORATORYOrdered By: SYSTEM SYSTEM on 03-17-2023 Basophils [...] Basophil, Absolute 0.0 10 3/mcL Normal 0.0-0.3 [facility] ([place] Comment on above: Performed By: #### L RADHA SARGENT MDW, CBC, GFR, CMP, TROPHS, ANEU #### [facility] [address] [place] [address] Basophils/100 WBC (Bld) 0.4 % Normal 0.0-2.5 A [facility] ([place] Comment on above: Performed By: #### L AC, ADIFF, MDW, CBC, GFR, CMP, TROPHS, ANEU #### [address] [address] Eosinophil, Absolute 0.1 10 3/mcL Normal 0.0-0.7 [facility] ([place] Comment on above: Performed By: #### L AC, ADIFF, MDW, CBC, GFR, CMP, TROPHS, ANEU #### [address] [address] Eosinophils/100 WBC (Bld) 1.2 % Normal 0.0-6.0 [facility] ([place]) Comment on above: Performed By: #### L AC, ADIFF, MDW, CBC, GFR, CMP, TROPHS, ANEU #### [address] [address] Lymphocyte, Absolute 0.8 10 3/mcL Low 0.9-4.3 [facility] ([place] Comment on above: Performed By: #### L AC, ADIFF, MDW, CBC, GFR, CMP, TROPHS, ANEU #### [address] [address] Lymphocytes/100 WBC (Bld) 11.6 % Low 20.0-40.0 [facility] ([place] Comment on above: Performed By: #### L AC, ADIFF, MDW, CBC, GFR, CMP, TROPHS, ANEU #### [address] [address] Monocyte, Absolute 0.6 10 3/mcL Normal 0.1-1.4 [facility] ([place] Comment on above: Performed By: #### L AC, ADIFF, MDW, CBC, GFR, CMP, TROPHS, ANEU #### [address] [address] Monocytes/100 WBC (Bld) 8.3 % Normal 2.0-13.0 [facility] ([place] Comment on above: Performed By: #### L AC, ADIFF, MDW, CBC, GFR, CMP, TROPHS, ANEU #### [address] [address] Neutrophils/100 WBC (Bld) 78.5 % High 50.0-75.0 [facility] ([place] Comment on above: Performed By: #### L RADHA SARGENT MDW, CBC, GFR, CMP, TROPHS, ANEU #### [address] [address] .GFRon 03-16-2023 GFR Non- >60 Normal [facility] ([place] Comment on above: Result Comment: GFR Population [...] MDW, CBC, GFR, CMP, TROPHS, ANEU #### [address] [address] GFR >60 Normal [facility] ([place] Comment on above: Result Comment: GFR Population [...] MDW, CBC, GFR, CMP, TROPHS, ANEU #### [address] [address] .NEUABSon 03-16-2023 Neutrophil, Absolute 5.3 10 3/mcL Normal 2.3-8.1 [facility] ([place] Comment on above: Performed By: #### L RADHA SARGENT MDW, CBC, GFR, CMP, TROPHS, ANEU #### [address] [address] BMPon 03-16-2023 BUN/Creatinine Ratio 9.0 ratio Low 10.0-22.0 [facility] ([place] Comment on above: Performed By: #### L RADHA SARGENT MDW, CBC, GFR, CMP, TROPHS, ANEU #### [address] [address] Calcium [Mass/Vol] 8.1 mg/dL Low 8.7-10.4 [facility] ([place] Comment on above: Performed By: #### L RADHA SARGENT MDW, CBC, GFR, CMP, TROPHS, ANEU #### [address] [address] Chloride [Moles/Vol] 110 mmol/L Normal 98-110 [facility] ([place] Comment on above: Performed By: #### RADHA COSTA MDW, CBC, GFR, CMP, TROPHS, ANEU #### [address] [address] CO2 [Moles/Vol] 26 mmol/L Normal 22-32 [facility] ([place] Comment on above: Performed By: #### RADHA COSTA MDW, CBC, GFR, CMP, TROPHS, ANEU #### [address] [address] Creatinine [Mass/Vol] 0.89 mg/dL Normal 0.60-1.40 [facility] ([place] Comment on above: Performed By: #### L RADHA SARGENT MDW, CBC, GFR, CMP, TROPHS, ANEU #### [address] [address] Electrolyte Balance 1.0 mEq/L Low 4.0-15.0 [facility] ([place] Comment on above: Performed By: #### L RADHA SARGENT MDW, CBC, GFR, CMP, TROPHS, ANEU #### [address] [address] Glucose [Mass/Vol] 263 mg/dL High 82-115 [facility] ([place] Comment on above: Performed By: #### L RADHA SARGENT MDW, CBC, GFR, CMP, TROPHS, ANEU #### [place] [id number] Potassium [Moles/Vol] 4.7 mmol/L Normal 3.5-5.0 [facility] ([place] Comment on above: Result Comment: Spec imen slightly hemolyzed. Performed By: #### L RADHA SARGENT MDW, CBC, GFR, CMP, TROPHS, ANEU #### [place] [address] Sodium [Moles/Vol] 137 mmol/L Normal 136-145 [facility] ([place] Comment on above: Performed By: #### L RADHA SARGENT MDW, CBC, GFR, CMP, TROPHS, ANEU #### [place] [id number] Urea nitrogen [Mass/Vol] 8.0 mg/dL Normal 8.0-22.0 [facility] ([place] Comment on above: Performed By: #### L RADHA SARGENT MDW, CBC, GFR, CMP, TROPHS, ANEU #### [place] [id number] CBCon 03-16-2023 Erythrocyte distribution width (RBC) [Ratio] 14.7 % Normal 11.5-15.5 [facility] ([place] Comment on above: Performed By: #### L RADHA SARGENT MDW, CBC, GFR, CMP, TROPHS, ANEU #### [place] [id number] Hematocrit (Bld) [Volume fraction] 38.7 % Low 40.0-52.0 [facility] ([place] Comment on above: Performed By: #### L RADHA SARGENT MDW, CBC, GFR, CMP, TROPHS, ANEU #### [place] [address] Hgb 13.0 G/dL Normal 13.0-17.5 [facility] ([place] Comment on above: Performed By: #### L RADHA SARGENT MDW, CBC, GFR, CMP, TROPHS, ANEU #### [place] [address] MCH (RBC) [Entitic mass] 34.1 pg High 27.0-33.0 [facility] ([place] Comment on above: Performed By: #### L RADHA SARGENT MDW, CBC, GFR, CMP, TROPHS, ANEU #### [place] [address] MCHC 33.5 G/dL Normal 32.0-36.0 [facility] ([place] Comment on above: Performed By: #### L RADHA SARGENT MDW, CBC, GFR, CMP, TROPHS, ANEU #### [place] [address] MCV (RBC) [Entitic vol] 101.7 fL High 81.0-100.0 A [facility] ([place] Comment on above: Performed By: #### L RADHA SARGENT MDW, CBC, GFR, CMP, TROPHS, ANEU #### [place] [address] Platelet 196 10 3/mcL Normal 150-450 [facility] ([place] Comment on above: Performed By: #### L RADHA SARGENT MDW, CBC, GFR, CMP, TROPHS, ANEU #### [place] [address] Platelet mean volume (Bld) [Entitic vol] 8.6 fL Normal 6.4-10.5 [facility] ([place] Comment on above: Performed By: #### L RADHA SARGENT MDW, CBC, GFR, CMP, TROPHS, ANEU #### [place] [address] RBC 3.80 10 6/mcL Low 4.50-6.00 [facility] ([place] Comment on above: Performed By: #### L RADHA SARGENT MDW, CBC, GFR, CMP, TROPHS, ANEU #### [address] [address] WBC 6.7 10 3/mcL Normal 4.5-10.8 [facility] ([place] Comment on above: Performed By: #### L RADHA SARGENT MDW, CBC, GFR, CMP, TROPHS, ANEU #### [address] [address] LABORATORYOrdered By: SYSTEM SYSTEM on 03-16-2023 Calcium [...] (S/P/Bld) [Vol rate/Area] ml/min/1.73sqm Invalid Interpretation Code [facility] Chemistry S Comment on above: Interpretive Data: [...] (S/P/Bld) [Vol rate/Area] ml/min/1.73sqm Invalid Interpretation Code [facility] Chemistry S Comment on above: Interpretive Data: [...] 03-16-2023 Magnesium [Mass/Vol] 1.8 mg/dL Normal 1.6-2.4 [facility] ([place]) Comment on above: Performed By: #### L BELLE, RADHA, KEIKO, CBC, GFR, CMP, TROPHS, ANEU #### [place] [address] PHOSon 03-16-2023 Phosphate [Mass/Vol] 4.6 mg/dL Normal 2.4-5.1 [facility] ([place] Comment on above: Result Comment: No te - New Reference Range in effect 19 Performed By: #### L RADHA SARGENT MDW, CBC, GFR, CMP, TROPHS, ANEU #### [address] [address] .Auto Diffon 03-15-2023 Basophil, Absolute 0.0 10 3/mcL Normal 0.0-0.3 [facility] ([place] Comment on above: Performed By: #### L RADHA SARGENT MDW, CBC, GFR, CMP, TROPHS, ANEU #### [address] [address] Basophils/100 WBC (Bld) 0.9 % Normal 0.0-2.5 A [facility] ([place] Comment on above: Performed By: #### L RADHA SARGENT MDW, CBC, GFR, CMP, TROPHS, ANEU #### [address] [address] Eosinophil, Absolute 0.1 10 3/mcL Normal 0.0-0.7 [facility] ([place] Comment on above: Performed By: #### L RADHA SARGENT MDW, CBC, GFR, CMP, TROPHS, ANEU #### [address] [address] Eosinophils/100 WBC (Bld) 2.5 % Normal 0.0-6.0 [facility] ([place] Comment on above: Performed By: #### L RADHA SARGENT MDW, CBC, GFR, CMP, TROPHS, ANEU #### [address] [address] Lymphocyte, Absolute 1.5 10 3/mcL Normal 0.9-4.3 [facility] ([place] Comment on above: Performed By: #### L RADHA SARGENT MDW, CBC, GFR, CMP, TROPHS, ANEU #### [address] [address] Lymphocytes/100 WBC (Bld) 27.6 % Normal 20.0-40.0 [facility] ([place] Comment on above: Performed By: #### L RADHA SARGENT MDW, CBC, GFR, CMP, TROPHS, ANEU #### [address] [address] Monocyte, Absolute 0.5 10 3/mcL Normal 0.1-1.4 [facility] ([place] Comment on above: Performed By: #### L RADHA SARGENT MDW, CBC, GFR, CMP, TROPHS, ANEU #### [address] [address] Monocytes/100 WBC (Bld) 8.7 % Normal 2.0-13.0 A [facility] ([place] Comment on above: Performed By: #### L RADHA SARGENT MDW, CBC, GFR, CMP, TROPHS, ANEU #### [address] [address] Neutrophils/100 WBC (Bld) 60.3 % Normal 50.0-75.0 [facility] ([place] Comment on above: Performed By: #### L RADHA SARGENT MDW, CBC, GFR, CMP, TROPHS, ANEU #### [address] [address] .GFRon 03-15-2023 GFR Non- >60 Normal [facility] ([place] Comment on above: Result Comment: GFR Population [...] MDW, CBC, GFR, CMP, TROPHS, ANEU #### [place] [address] GFR >60 Normal [facility] ([place] Comment on above: Result Comment: GFR Population [...] KEIKO, CBC, GFR, CMP, TROPHS, ANEU #### [place] [address] .MDWon 03-15-2023 Monocyte Distribution Width 17.99 Normal 0.00-20.00 [facility] ([place] Comment on above: Result Comment: For ED adult patients suspected of sepsis, MDW<=20.0 does not rule out sepsis or risk of sepsis Performed By: #### L RADHA SARGENT MDW, CBC, GFR, CMP, TROPHS, ANEU #### [place] [address] .NEUABSon 03-15-2023 Neutrophil, Absolute 3.2 10 3/mcL Normal 2.3-8.1 [facility] ([place]) Comment on above: Performed By: #### L RADHA SARGENT MDW, CBC, GFR, CMP, TROPHS, ANEU #### [place] [address] [place] 03-15-2023 Ammonia 27 mcmol/l Normal 11-32 [facility] ([place]) Comment on above: Result Comment: Spec imen slightly hemolyzed. Performed By: #### L RADHA SARGENT, W, CBC, GFR, CMP, TROPHS, ANEU #### [place] [address] APTTon 03-15-2023 aPTT Coag (Bld) [Time] 29.7 s Normal 25.0-35.0 [facility] ([place]) Comment on above: Order Comment: blue top clotted. called ann-marie. Result Comment: For Heparin anticoagulation therapy, the recommended therapeutic range is: 54-77 seconds (APTT Correlation with Anti-Xa therapeutic range of 0.3-0.7 units/ml). PLEASE REFERENCE THE PHARMACY PROTOCOL FOR DOSING. Performed By: #### L RADHA SARGENT MDW, CBC, GFR, CMP, TROPHS, ANEU #### [place] [address] Heparin dose (APTT) Unknown Normal [facility] ([place]) Comment on above: Order Comment: blue top clotted. called ann-marie. Performed By: #### L RADHA SARGENT MDW, CBC, GFR, CMP, TROPHS, ANEU #### [place] [address] CBCon 03-15-2023 Erythrocyte distribution width (RBC) [Ratio] 14.7 % Normal 11.5-15.5 [facility] ([place]) Comment on above: Performed By: #### L RADHA SARGENT MDW, CBC, GFR, CMP, TROPHS, ANEU #### [place] [address] Hematocrit (Bld) [Volume fraction] 38.5 % Low 40.0-52.0 [facility] ([place]) Comment on above: Performed By: #### RADHA COSTA MDW, CBC, GFR, CMP, TROPHS, ANEU #### [place] [address] Hgb 12.8 G/dL Low 13.0-17.5 [facility] ([place]) Comment on above: Performed By: #### RADHA COSTA MDW, CBC, GFR, CMP, TROPHS, ANEU #### [place] [address] MCH (RBC) [Entitic mass] 34.0 pg High 27.0-33.0 [facility] ([place]) Comment on above: Performed By: #### L RADHA SARGENT MDW, CBC, GFR, CMP, TROPHS, ANEU #### [place] [address] MCHC 33.1 G/dL Normal 32.0-36.0 [facility] ([place]) Comment on above: Performed By: #### L RADHA SARGENT MDW, CBC, GFR, CMP, TROPHS, ANEU #### [place] [address] MCV (RBC) [Entitic vol] 102.6 fL High 81.0-100.0 A [facility] ([place]) Comment on above: Performed By: #### L RADHA SARGENT MDW, CBC, GFR, CMP, TROPHS, ANEU #### [place] [address] Platelet 204 10 3/mcL Normal 150-450 [facility] ([place]) Comment on above: Performed By: #### L RADHA SARGENT MDW, CBC, GFR, CMP, TROPHS, ANEU #### [place] [address] Platelet mean volume (Bld) [Entitic vol] 9.0 fL Normal 6.4-10.5 [facility] ([place] Comment on above: Performed By: #### L RADHA SARGENT MDW, CBC, GFR, CMP, TROPHS, ANEU #### [place] [address] RBC 3.75 10 6/mcL Low 4.50-6.00 [facility] ([place] Comment on above: Performed By: #### L RADHA SARGENT MDW, CBC, GFR, CMP, TROPHS, ANEU #### [place] [address] WBC 5.3 10 3/mcL Normal 4.5-10.8 [facility] ([place] Comment on above: Performed By: #### L RADHA SARGENT MDW, CBC, GFR, CMP, TROPHS, ANEU #### [place] [address] CMPon 03-15-2023 Albumin Level 2.4 G/dL Low 3.2-4.8 [facility] ([place] Comment on above: Performed By: #### L RADHA SARGENT MDW, CBC, GFR, CMP, TROPHS, ANEU #### [address] [address] Albumin/Globulin [Mass ratio] 0.9 {ratio} Normal 0.9-1.6 [facility] ([place] Comment on above: Performed By: #### L RADHA SARGENT MDW, CBC, GFR, CMP, TROPHS, ANEU #### [address] [address] ALP [Catalytic activity/Vol] 125 U/L Normal 38-126 [facility] ([place] Comment on above: Performed By: #### L RADHA SARGENT MDW, CBC, GFR, CMP, TROPHS, ANEU #### [place] [id number] ALT [Catalytic activity/Vol] 29 U/L Normal 12-55 [facility] ([place] Comment on above: Performed By: #### L RADHA SARGENT MDW, CBC, GFR, CMP, TROPHS, ANEU #### [address] [address] AST [Catalytic activity/Vol] 53 U/L High 8-34 [facility] ([place] Comment on above: Performed By: #### L RADHA SARGENT MDW, CBC, GFR, CMP, TROPHS, ANEU #### [place] [id number] Bili Total <0.20 Normal 0.20-1.20 [facility] ([place]) Comment on above: Result Comment: Use of this assay is not recommended for patients undergoing treatment with eltrombopag due to the potential for falsely elevated results. Performed By: #### L RADHA SARGENT MDW, CBC, GFR, CMP, TROPHS, ANEU #### [address] [address] Calcium [Mass/Vol] 8.0 mg/dL Low 8.7-10.4 [facility] ([place]) Comment on above: Performed By: #### L RADHA SARGENT MDW, CBC, GFR, CMP, TROPHS, ANEU #### [address] [address] Chloride [Moles/Vol] 110 mmol/L Normal 98-110 [facility] ([place]) Comment on above: Performed By: #### L RADHA SARGENT MDW, CBC, GFR, CMP, TROPHS, ANEU #### [address] [address] CO2 [Moles/Vol] 23 mmol/L Normal 22-32 [facility] ([place] Comment on above: Performed By: #### L RADHA SARGENT MDW, CBC, GFR, CMP, TROPHS, ANEU #### [address] [address] Creatinine [Mass/Vol] 0.92 mg/dL Normal 0.60-1.40 [facility] ([place]) Comment on above: Performed By: #### L RADHA SARGENT MDW, CBC, GFR, CMP, TROPHS, ANEU #### [address] [address] Electrolyte Balance 8.0 mEq/L Normal 4.0-15.0 [facility] ([place]) Comment on above: Performed By: #### L RADHA SARGENT MDW, CBC, GFR, CMP, TROPHS, ANEU #### [address] [address] Globulin 2.8 G/dL Normal 1.5-3.8 [facility] ([place] Comment on above: Performed By: #### L RADHA SARGENT MDW, CBC, GFR, CMP, TROPHS, ANEU #### [address] [address] Glucose [Mass/Vol] 241 mg/dL High 82-115 [facility] ([place] Comment on above: Performed By: #### L RADHA SARGENT MDW, CBC, GFR, CMP, TROPHS, ANEU #### [address] [address] Potassium [Moles/Vol] 4.1 mmol/L Normal 3.5-5.0 [facility] ([place] Comment on above: Result Comment: Spec imen slightly hemolyzed. Performed By: #### L RADHA SARGENT MDW, CBC, GFR, CMP, TROPHS, ANEU #### [address] [address] Sodium [Moles/Vol] 141 mmol/L Normal 136-145 [facility] ([place] Comment on above: Performed By: #### L RADHA SARGENT MDW, CBC, GFR, CMP, TROPHS, ANEU #### [address] [address] Total Protein 5.2 G/dL Low 5.7-8.2 [facility] ([place] Comment on above: Result Comment: No te - New Reference Range in effect 19 Performed By: #### L RADHA SARGENT MDW, CBC, GFR, CMP, TROPHS, ANEU #### [address] [address] Urea nitrogen [Mass/Vol] mg/dL Low 8.0-22.0 [facility] ([place] Comment on above: Performed By: #### L RADHA SARGENT MDW, CBC, GFR, CMP, TROPHS, ANEU #### [address] [address] Urea nitrogen/Creatinine [Mass ratio] mg/mg Low 10.0-22.0 [facility] ([place] Comment on above: Performed By: #### L RADHA SARGENT MDW, CBC, GFR, CMP, TROPHS, ANEU #### [address] [address] [address] ABD/PELVIS W/ IV CONTRAST ONLYon 03-15-2023 [...] 03/15/2023 3:04:31 PM Ordering Provider: PEREZ RIBEIRO [facility] ([place] CT HEAD OR BRAIN W/O CONTRDUANE Ton [...] Jamari Love MD Electronically signed By Jamari Lvoe MD Dictated Date: 03/15/2023 2:36:08 PM Prelim Date: 03/15/2023 2:37:44 PM Sign Date: 03/15/2023 2:37:44 PM Ordering Provider: PEREZ White [facility]) CVFLURVon 03-15-2023 FLU A PCR Negative Normal Negative [facility]) Comment on above: Result Comment: Note s 1990 Performed By: #### L RADHA SARGENT MDW, CBC, GFR, CMP, TROPHS, ANEU #### [address] [address] FLU B PCR Negative Normal Negative [facility] ([place] Comment on above: Result Comment: Note s 1990 Performed By: #### L RADHA SARGENT MDW, CBC, GFR, CMP, TROPHS, ANEU #### [address] [address] RSV PCR Negative Normal Negative [facility] ([place] Comment on above: Result Comment: Note s 1990 Performed By: #### L RADHA SARGENT MDW, CBC, GFR, CMP, TROPHS, ANEU #### [address] [address] SARS-CoV-2 (COVID-19) RNA GENEVA+probe Ql (Unsp spec) Negative Normal Negative [facility]) Comment on above: Result Comment: Note s [...] MDW, CBC, GFR, CMP, TROPHS, ANEU #### [place] [address] LABORATORYOrdered By: SYSTEM SYSTEM on 03-15-2023 Ammonia [...] Lactic Acid Lvl 2.2 mmol/L High 0.2-2.0 [facility] ([place] Comment on above: Performed By: #### L RADHA SARGENT MDW, CBC, GFR, CMP, TROPHS, ANEU #### [place] [address] Lactic Acid Lvl 4.2 mmol/L High 0.2-2.0 [facility] ([place] Comment on above: Performed By: #### L RADHA SARGENT MDW, CBC, GFR, CMP, TROPHS, ANEU #### [address] [address] No Panel Informationon 03-15 Culture Urine No growth at 48 hours. [facility] Work Phone: Microscopic examination of blood, culture Culture has been received in lab and is no growth to date. Routine cultures are held for 5 days. [facility] Work Phone: TROPHSon 03-15-2023 Troponin I High Sensitivity 6.63 ng/L Normal 0.00-54.00 [facility] ([place] Comment on above: Performed By: #### L RADHA SARGENT MDW, CBC, GFR, CMP, TROPHS, ANEU #### [address] [address] UAon 03-15-2023 Color (U) Yellow Normal [facility] ([place] Comment on above: Performed By: #### L RADHA SARGENT MDW, CBC, GFR, CMP, TROPHS, ANEU #### [address] [address] Glucose (U) [Mass/Vol] mg/dL Abnormal Negative [facility] ([place]) Comment on above: Performed By: #### L RADHA SARGENT MDW, CBC, GFR, CMP, TROPHS, ANEU #### [address] [address] Ketones Ql (U) Negative Normal Neg-Trace [facility] ([place] Comment on above: Performed By: #### L RADHA SARGENT MDW, CBC, GFR, CMP, TROPHS, ANEU #### [address] [address] UA Appear Clear Normal Clear [facility] ([place] Comment on above: Performed By: #### L RADHA SARGENT MDW, CBC, GFR, CMP, TROPHS, ANEU #### [address] [address] UA Blood Trace Normal Neg-Trace [facility] ([place] Comment on above: Performed By: #### L RADHA SARGENT MDW, CBC, GFR, CMP, TROPHS, ANEU #### [address] [address] UA Leuk Est Negative Normal Negative [facility] ([place] Comment on above: Performed By: #### L RADHA SARGENT MDW, CBC, GFR, CMP, TROPHS, ANEU #### [address] [address] UA Nitrite Negative Normal Negative [facility] ([place] Comment on above: Performed By: #### L RADHA SARGENT MDW, CBC, GFR, CMP, TROPHS, ANEU #### [address] [address] UA pH 7.0 Normal 5.0 - 8.0 [facility] ([place] Comment on above: Performed By: #### L RADHA SARGENT MDW, CBC, GFR, CMP, TROPHS, ANEU #### [address] [address] UA Protein Negative Normal Negative [facility] ([place] Comment on above: Performed By: #### L RADHA SARGENT MDW, CBC, GFR, CMP, TROPHS, ANEU #### [address] [address] UA Spec Grav <=1.005 Abnormal 1.006-1.029 [facility] ([place] Comment on above: Performed By: #### L RADHA SARGENT MDW, CBC, GFR, CMP, TROPHS, ANEU #### [facility] [address] [place] [address] UA Specimen Type Clean Catch Normal [facility] ([place] Comment on above: Performed By: #### L RADHA SARGENT MDW, CBC, GFR, CMP, TROPHS, ANEU #### [facility] [address] [place] [address] UA Urobilinogen 0.2 E.U./dL Normal 0.2-1.0 [facility] ([place] Comment on above: Performed By: #### L RADHA SARGENT MDW, CBC, GFR, CMP, TROPHS, ANEU #### [place] [address] Urobilinogen (U) [Mass/Vol] Negative Normal Neg-Trace [facility] ([place] Comment on above: Performed By: #### L RADHA SARGENT MDW, CBC, GFR, CMP, TROPHS, ANEU #### [place] [address] XR CHEST 1 VIEWon 03-15-2023 XR CHEST [...] 03/15/2023 11:32:58 AM Ordering Provider: PEREZ RIBEIRO [facility] ([place]) Absolute lymphocyte countOrd ered By: Vinh Lomeli on 11-01-2022 Lymphocytes Auto (Unsp spec) [#/Vol] 1.39 10*3/uL 0.83-4.51 [facility] Basophil percentageOrdered B y: Vinh Lomeli on 11-01-2022 Basophils/100 WBC (Bld) 1.1 % 0-1 [facility] Bilirubin [Mass/Vol] 0.40 mg/dL 0.20-1.00 [facility] Comment on above: For patients on eltr ombopag therapy, use of Dimension [place] TBIL is not recommended. Chloride [Moles/Vol] 101 mmol/L 98-107 [facility] Eosinophils/100 WBC (Bld) 1.1 % 0-5 [facility] Glucose [Mass/Vol] 205 mg/dL 74-106 [facility] Comment on above: Glucose result great er than or equal to 200 mg/dLsuggests DIABETES MELLITUS per A.D.A. criteria. Neutrophils (Bld) [#/Vol] 4.4 10*3/uL 2.0-7.7 [facility] Neutrophils/100 WBC (Bld) 67.9 % 47-70 [facility] Potassium [Moles/Vol] 3.1 mmol/L 3.5-5.1 [facility] Protein [Mass/Vol] 6.5 g/dL 6.4-8.2 [facility] Sodium [Moles/Vol] 141 mmol/L 136-145 [facility] WBC (Bld) [#/Vol] 6.5 10*3/uL 4.4-11.0 [facility] Blood erythrocytes count (nu mber/volume)Ordered By: Vinh Lomeli on 11-01-2022 RBC (Bld) [#/Vol] 4.33 10*6/uL 4.6-6.2 [facility] Blood hemoglobin measurement (mass/volume)Ordered By: Vinh Lomeli on 11-01-2022 Hemoglobin (Bld) [Mass/Vol] 14.1 g/dL 13.0-16.5 [facility] Blood lymphocytes/100 leukoc ytesOrdered By: Vinh Lomeli on 11-01-2022 Lymphocytes/100 WBC (Bld) 21.5 % 19-41 [facility] Blood monocytes/100 leukocyt esOrdered By: Vinh Lomeli on 11-01-2022 Monocytes/100 WBC (Bld) 7.9 % 0-10 [facility] Blood platelet mean volumeOr dered By: Vinh Lomeli on 11-01-2022 Platelet mean volume (Bld) [Entitic vol] 10.7 fL 6.2-12.0 [facility] Determination of erythrocyte mean corpuscular volume (MCV)Ordered By: Vinh Lomeli on 11-01-2022 MCV (RBC) [Entitic vol] 96.8 fL 80-94 [facility] Hematocrit Auto (Bld) [Volum e fraction]Ordered By: Vinh Lomeli on 11-01-2022 Hematocrit (Bld) [Volume fraction] 41.9 % 40-54 [facility] Laboratory - Chemistry and C hemistry - challengeOrdered By: Vinh Lomeli on 11-01-2022 ALP [Catalytic activity/Vol] 196 U/L 45-117 [facility] ALT [Catalytic activity/Vol] 189 U/L 16-61 [facility] CO2 [Moles/Vol] 31.0 mmol/L 21.0-32.0 [facility] Globulin (S) [Mass/Vol] 3.5 g/dL 2.2-4.2 [facility] Lipase [Catalytic activity/Vol] U/L 13-75 [facility] Comment on above: Please note:LIPASE r evised reference range effective 22. New Lipase methodology. Expected to produce lower values than the previous assay method. NEW Reference Range: 13 - 75 U/L Urea nitrogen/Creatinine [Mass ratio] 5.0 mg/mg 10-20 [facility] Laboratory - Hematology and Cell countsOrdered By: Vinh Lomeli on 11-01-2022 Erythrocyte distribution width (RBC) [Entitic vol] 45.1 fL 35.1-43.9 [facility] Erythrocyte distribution width (RBC) [Ratio] 12.5 % 11.6-14.6 [facility] Immature granulocytes/100 WBC (Bld) 0.500 % 0.0-0.9 [facility] Comment on above: IG% - Immature Granu locytes (promyelocytes, myelocytes and metamyelocytes) > 1% indicates that a LEFT SHIFT is Present. MCH (RBC) [Entitic mass] 32.6 pg 27.0-32.0 [facility] Nucleated RBC/100 WBC (Bld) [Ratio] 0 % 0-5 [facility] MCHC Auto (RBC) [Mass/Vol]Or dered By: Vinh Lomeli on 11-01-2022 MCHC (RBC) [Mass/Vol] 33.7 g/dL 32-36 [facility] No Panel InformationOrdered By: Vinh Lomeli on 11-01-2022 Estimated Creatinine Clearance Calc 70.71 ml/min [facility] Estimated GFR (MDRD) Amer 97 mL/min >60 [facility] Comment on above: GFR Calc Estimated GFR (MDRD) Non-Af Amer 80 mL/min >60 [facility] Comment on above: Non- GFR Calc Platelets bldOrdered By: Jasvir Lomeli on 11-01-2022 Platelets (Bld) [#/Vol] 151 10*3/uL 150-450 [facility] Serum or plasma albumin luciana urement (mass/volume)Ordered By: Vinh Lomeli on 11-01-2022 Albumin [Mass/Vol] 3.0 g/dL 3.2-5.0 [facility] Serum or plasma albumin/glob ulin mass ratioOrdered By: Vinh Lomeli on 11-01-2022 Albumin/Globulin [Mass ratio] 0.9 {ratio} 0.9-2.4 [facility] Serum or plasma calcium luciana urement (mass/volume)Ordered By: Vinh Lomeli on 11-01-2022 Calcium [Mass/Vol] 8.5 mg/dL 8.5-10.1 [facility] Serum or plasma creatinine m easurement (mass/volume)Ordered By: Vinh Lomeli on 11-01-2022 Creatinine [Mass/Vol] 1.01 mg/dL 0.70-1.30 [facility] Comment on above: The validity of the calculated GFR & GFRAA in patients over 70 years has not been determined. Clinical correlation is essential. Serum or plasma urea nitroge n measurement (mass/volume)Ordered By: Vinh Lomeli on 11-01-2022 Urea nitrogen [Mass/Vol] 5 mg/dL 7-18 [facility] Thin prep Papanicolaou smear with manual screeningOrdered By: Vinh Lomeli on 11-01-2022 Thin prep Papanicolaou smear with manual screening 434 U/L 15-37 [facility] Thin prep Papanicolaou smear with manual screening 9 5-15 [facility] .Auto Diffon 10-15-2022 Basophil, Absolute 0.1 10 3/mcL Normal 0.0-0.2 [facility] ([place]) Comment on above: Performed By: #### L RADHA SARGENT MDW, CBC, GFR, CMP, TROPHS, ANEU #### [address] [address] Basophils/100 WBC (Bld) 0.8 % Normal 0.0-2.5 A [facility] ([place]) Comment on above: Performed By: #### L RADHA SARGENT MDW, CBC, GFR, CMP, TROPHS, ANEU #### [address] [address] Eosinophil, Absolute 0.1 10 3/mcL Normal 0.0-0.4 [facility] ([place]) Comment on above: Performed By: #### L RADHA SARGENT MDW, CBC, GFR, CMP, TROPHS, ANEU #### [address] [address] Eosinophils/100 WBC (Bld) 1.7 % Normal 0.0-7.0 [facility] ([place]) Comment on above: Performed By: #### RADHA COSTA MDW, CBC, GFR, CMP, TROPHS, ANEU #### [address] [address] Lymphocyte, Absolute 1.6 10 3/mcL Normal 0.8-3.9 [facility] ([place]) Comment on above: Performed By: #### L RADHA SARGENT MDW, CBC, GFR, CMP, TROPHS, ANEU #### [address] [address] Lymphocytes/100 WBC (Bld) 18.8 % Normal 10.0-50.0 [facility] ([place]) Comment on above: Performed By: #### L RADHA SARGENT MDW, CBC, GFR, CMP, TROPHS, ANEU #### [address] [address] Monocyte, Absolute 0.8 10 3/mcL Normal 0.2-1.0 [facility] ([place]) Comment on above: Performed By: #### L BELLE, RADHA, W, CBC, GFR, CMP, TROPHS, ANEU #### [address] [address] Monocytes/100 WBC (Bld) 9.4 % Normal 1.7-13.0 A [facility] ([place]) Comment on above: Performed By: #### L RADHA SARGENT MDW, CBC, GFR, CMP, TROPHS, ANEU #### [address] [address] Neutrophils/100 WBC (Bld) 69.3 % Normal 37.0-80.0 [facility] ([place] Comment on above: Performed By: #### L RADHA SARGENT MDW, CBC, GFR, CMP, TROPHS, ANEU #### [address] [address] .GFRon 10-15-2022 GFR 79 ml/min/1.73sqm Normal [facility] ([place]) Comment on above: Result Comment: GFR Population [...] W, CBC, GFR, CMP, TROPHS, ANEU #### [address] [address] GFR Non- 66 ml/min/1.73sqm Normal [facility] ([place]) Comment on above: Result Comment: GFR Population [...] MDW, CBC, GFR, CMP, TROPHS, ANEU #### [place] [address] .NEUABSon 10-15-2022 Neutrophil, Absolute 5.9 10 3/mcL Normal 2.9-6.2 [facility] ([place] Comment on above: Performed By: #### L RADHA SARGENT MDW, CBC, GFR, CMP, TROPHS, ANEU #### [place] [address] A1Con 10-15-2022 HbA1c (Bld) [Mass fraction] 7.9 % High 4.3-6.4 [facility] ([place] Comment on above: Performed By: #### RADHA COSTA MDW, CBC, GFR, CMP, TROPHS, ANEU #### [place] [address] CBCon 10-15-2022 Erythrocyte distribution width (RBC) [Ratio] 13.4 % Normal 11.5-14.5 [facility] ([place] Comment on above: Performed By: #### RADHA COSTA MDW, CBC, GFR, CMP, TROPHS, ANEU #### [place] [address] Hematocrit (Bld) [Volume fraction] 42.6 % Normal 42.0-52.0 [facility] ([place] Comment on above: Performed By: #### L RADHA SARGENT MDW, CBC, GFR, CMP, TROPHS, ANEU #### [place] [address] Hgb 14.0 G/dL Normal 14.0-18.0 [facility] ([place] Comment on above: Performed By: #### L RADHA SARGENT MDW, CBC, GFR, CMP, TROPHS, ANEU #### [place] [address] MCH (RBC) [Entitic mass] 33.0 pg High 27.0-31.2 [facility] ([place] Comment on above: Performed By: #### L RADHA SARGENT MDW, CBC, GFR, CMP, TROPHS, ANEU #### [place] [address] MCHC 33.0 G/dL Normal 31.8-35.4 [facility] ([place] Comment on above: Performed By: #### L RADHA SARGENT MDW, CBC, GFR, CMP, TROPHS, ANEU #### [place] [address] MCV (RBC) [Entitic vol] 100.1 fL High 80.0-94.0 A [facility] ([place] Comment on above: Performed By: #### L RADHA SARGENT MDW, CBC, GFR, CMP, TROPHS, ANEU #### [place] [address] Platelet 184 10 3/mcL Normal 130-400 [facility] ([place] Comment on above: Performed By: #### L RADHA SARGENT MDW, CBC, GFR, CMP, TROPHS, ANEU #### [place] [address] Platelet mean volume (Bld) [Entitic vol] 10.1 fL Normal 7.4-10.4 [facility] ([place] Comment on above: Performed By: #### L RADHA SARGENT MDW, CBC, GFR, CMP, TROPHS, ANEU #### [address] [address] RBC 4.26 10 6/mcL Normal 4.04-6.13 [facility] ([place] Comment on above: Performed By: #### L RADHA SARGENT MDW, CBC, GFR, CMP, TROPHS, ANEU #### [address] [address] WBC 8.5 10 3/mcL Normal 4.6-10.8 [facility] ([place] Comment on above: Performed By: #### L RADHA SARGENT MDW, CBC, GFR, CMP, TROPHS, ANEU #### [address] [address] CMPon 10-15-2022 Albumin Level 3.7 G/dL Normal 3.4-4.8 [facility] ([place] Comment on above: Performed By: #### L RADHA SARGENT MDW, CBC, GFR, CMP, TROPHS, ANEU #### [place] [id number] Albumin/Globulin [Mass ratio] 1.0 {ratio} Low 1.1-2.5 [facility] ([place] Comment on above: Performed By: #### L RADHA SARGENT MDW, CBC, GFR, CMP, TROPHS, ANEU #### [address] [address] ALP [Catalytic activity/Vol] 148 U/L High 40-135 [facility] ([place] Comment on above: Performed By: #### L RADHA SARGENT MDW, CBC, GFR, CMP, TROPHS, ANEU #### [address] [address] ALT [Catalytic activity/Vol] 49 U/L Normal 16-63 [facility] ([place] Comment on above: Performed By: #### L RADHA SARGENT MDW, CBC, GFR, CMP, TROPHS, ANEU #### [address] [address] AST [Catalytic activity/Vol] 53 U/L High 10-40 [facility] ([place] Comment on above: Performed By: #### L RADHA SARGENT MDW, CBC, GFR, CMP, TROPHS, ANEU #### [address] [address] Bili Total 0.4 mg/dL Normal 0.2-1.0 [facility] ([place] Comment on above: Result Comment: Use of this assay is not recommended for patients undergoing treatment with eltrombopag due to the potential for falsely elevated results. Performed By: #### L RADHA SARGENT MDW, CBC, GFR, CMP, TROPHS, ANEU #### [place] [id number] BUN/Creatinine Ratio 10 ratio Normal 7-27 [facility] ([place]) Comment on above: Performed By: #### L RADHA SARGENT MDW, CBC, GFR, CMP, TROPHS, ANEU #### [address] [address] Calcium [Mass/Vol] 9.3 mg/dL Normal 8.4-10.2 [facility] ([place]) Comment on above: Performed By: #### L RADHA SARGENT MDW, CBC, GFR, CMP, TROPHS, ANEU #### [address] [address] Chloride [Moles/Vol] 104 mmol/L Normal 98-107 [facility] ([place] Comment on above: Performed By: #### L RADHA SARGENT MDW, CBC, GFR, CMP, TROPHS, ANEU #### [address] [address] CO2 [Moles/Vol] 23 mmol/L Normal 23-31 [facility] ([place] Comment on above: Performed By: #### L RADHA SARGENT MDW, CBC, GFR, CMP, TROPHS, ANEU #### [address] [address] Creatinine [Mass/Vol] 1.14 mg/dL Normal 0.70-1.30 [facility] ([place] Comment on above: Performed By: #### L RADHA SARGENT MDW, CBC, GFR, CMP, TROPHS, ANEU #### [address] [address] Electrolyte Balance 11.0 mEq/L Normal 4.0-15.0 [facility] ([place] Comment on above: Performed By: #### L RADHA SARGENT MDW, CBC, GFR, CMP, TROPHS, ANEU #### [address] [address] Globulin 3.6 G/dL Normal [facility] ([place] Comment on above: Performed By: #### L RADHA SARGENT MDW, CBC, GFR, CMP, TROPHS, ANEU #### [address] [address] Glucose [Mass/Vol] 205 mg/dL High 80-115 [facility] ([place] Comment on above: Performed By: #### L RADHA SARGENT MDW, CBC, GFR, CMP, TROPHS, ANEU #### [address] [address] Potassium [Moles/Vol] 5.0 mmol/L Normal 3.5-5.1 [facility] ([place] Comment on above: Performed By: #### L RADHA SARGENT MDW, CBC, GFR, CMP, TROPHS, ANEU #### [address] [address] Sodium [Moles/Vol] 138 mmol/L Normal 136-145 [facility] ([place] Comment on above: Performed By: #### L RADHA SARGENT MDW, CBC, GFR, CMP, TROPHS, ANEU #### [address] [address] Total Protein 7.3 G/dL Normal 6.4-8.2 [facility] ([place] Comment on above: Performed By: #### L RADHA SARGENT MDW, CBC, GFR, CMP, TROPHS, ANEU #### [address] [address] Urea nitrogen [Mass/Vol] 11 mg/dL Normal 7-18 [facility] ([place] Comment on above: Performed By: #### L RADHA SARGENT MDW, CBC, GFR, CMP, TROPHS, ANEU #### [address] [address] CPEPon 10-15-2022 C-Peptide 1.09 ng/mL Normal 0.81-3.85 [facility] ([place]) Comment on above: Order Comment: +/-28 days Performed By: #### L RADHA SARGENT MDW, CBC, GFR, CMP, TROPHS, ANEU #### [place] [address] LABORATORYOrdered By: Mehran Lee on 10-15-2022 Blood Glucose Frequency Other: Multiple times per day [facility] Work Phone: LIPIDon 10-15-2022 Cholesterol [Mass/Vol] 116 mg/dL Normal 0-200 [facility] ([place]) Comment on above: Result Comment: Chol esterol Reference Interval: Less than 200 Desirable 200-239 Borderline high risk 240 and above High risk Performed By: #### L RADHA SARGENT MDW, CBC, GFR, CMP, TROPHS, ANEU #### [place] [address] Cholesterol in HDL [Mass/Vol] 40 mg/dL Normal 40-60 [facility] ([place]) Comment on above: Performed By: #### L RADHA SARGENT MDW, CBC, GFR, CMP, TROPHS, ANEU #### [place] [address] Cholesterol in LDL [Mass/Vol] 59 mg/dL Normal 0-130 [facility] ([place]) Comment on above: Performed By: #### L RADHA SARGENT MDW, CBC, GFR, CMP, TROPHS, ANEU #### [address] [address] Triglyceride [Mass/Vol] 83 mg/dL Normal 0-150 A [facility] ([place]) Comment on above: Result Comment: Trig lyceride Reference Interval: Less than 150 Normal 150-199 Borderline high risk 200-499 High risk 500 or higher Very high risk Performed By: #### L RADHA SARGENT MDW, CBC, GFR, CMP, TROPHS, ANEU #### [address] [address] VIDHon 10-15-2022 Vit. D 25-Hydroxy 37.4 ng/mL Normal [facility] ([place]) Comment on above: Result Comment: Inte rpretive Values Based on Total 25(OH) Vitamin D: Deficient <20 ng/mL Insufficient 20 - <30 ng/mL Sufficient 30-100 ng/mL Performed By: #### L BELLE, RADHA, W, CBC, GFR, CMP, TROPHS, ANEU #### [address] [address] .Auto Diffon 10-05-2022 Basophil, Absolute 0.1 10 3/mcL Normal 0.0-0.2 [facility] ([place]) Comment on above: Performed By: #### L RADHA SARGENT MDW, CBC, GFR, CMP, TROPHS, ANEU #### [address] [address] Basophils/100 WBC (Bld) 1.2 % Normal 0.0-2.5 A [facility] ([place] Comment on above: Performed By: #### L RADHA SARGENT, W, CBC, GFR, CMP, TROPHS, ANEU #### [address] [address] Eosinophil, Absolute 0.2 10 3/mcL Normal 0.0-0.4 [facility] ([place]) Comment on above: Performed By: #### L RADHA SARGENT, W, CBC, GFR, CMP, TROPHS, ANEU #### [address] [address] Eosinophils/100 WBC (Bld) 2.5 % Normal 0.0-7.0 [facility] ([place]) Comment on above: Performed By: #### L RADHA SARGENT, W, CBC, GFR, CMP, TROPHS, ANEU #### [address] [address] Lymphocyte, Absolute 1.4 10 3/mcL Normal 0.8-3.9 [facility] ([place]) Comment on above: Performed By: #### L BELLE, RADHA, W, CBC, GFR, CMP, TROPHS, ANEU #### [address] [address] Lymphocytes/100 WBC (Bld) 18.6 % Normal 10.0-50.0 [facility] ([place]) Comment on above: Performed By: #### L RADHA SARGENT MDW, CBC, GFR, CMP, TROPHS, ANEU #### [address] [address] Monocyte, Absolute 0.6 10 3/mcL Normal 0.2-1.0 [facility] ([place]) Comment on above: Performed By: #### L RADHA SARGENT MDW, CBC, GFR, CMP, TROPHS, ANEU #### [address] [address] Monocytes/100 WBC (Bld) 7.8 % Normal 1.7-13.0 A [facility] ([place]) Comment on above: Performed By: #### L RADHA SARGENT MDW, CBC, GFR, CMP, TROPHS, ANEU #### [address] [address] Neutrophils/100 WBC (Bld) 69.9 % Normal 37.0-80.0 [facility] ([place]) Comment on above: Performed By: #### L RADHA SARGENT MDW, CBC, GFR, CMP, TROPHS, ANEU #### [address] [address] .GFRon 10-05-2022 GFR Non- 69 ml/min/1.73sqm Normal [facility] ([place]) Comment on above: Result Comment: GFR [...] MDW, CBC, GFR, CMP, TROPHS, ANEU #### [address] [address] GFR 84 ml/min/1.73sqm Normal [facility] ([place]) Comment on above: Result Comment: GFR Population [...] MDW, CBC, GFR, CMP, TROPHS, ANEU #### [address] [address] .MDWon 10-05-2022 Monocyte Distribution Width 16.07 Normal 0.00-20.00 [facility] ([place]) Comment on above: Result Comment: For ED adult patients suspected of sepsis, MDW<=20.0 does not rule out sepsis or risk of sepsis Performed By: #### L RADHA SARGENT MDW, CBC, GFR, CMP, TROPHS, ANEU #### [address] [address] .NEUABSon 10-05-2022 Neutrophil, Absolute 5.4 10 3/mcL Normal 2.9-6.2 [facility] ([place] Comment on above: Performed By: #### L RADHA SARGENT MDW, CBC, GFR, CMP, TROPHS, ANEU #### [address] [address] CBCon 10-05-2022 Erythrocyte distribution width (RBC) [Ratio] 13.6 % Normal 11.5-14.5 [facility] ([place] Comment on above: Performed By: #### L RADHA SAGRENT MDW, CBC, GFR, CMP, TROPHS, ANEU #### [place] [address] Hematocrit (Bld) [Volume fraction] 44.2 % Normal 42.0-52.0 [facility] ([place] Comment on above: Performed By: #### L BELLE, RADHA, W, CBC, GFR, CMP, TROPHS, ANEU #### [place] [id number] Hgb 14.9 G/dL Normal 14.0-18.0 [facility] ([place] Comment on above: Performed By: #### L RADHA SARGENT MDW, CBC, GFR, CMP, TROPHS, ANEU #### [place] [address] MCH (RBC) [Entitic mass] 33.5 pg High 27.0-31.2 [facility] ([place] Comment on above: Performed By: #### L RADHA SARGENT, KEIKO, CBC, GFR, CMP, TROPHS, ANEU #### [place] [address] MCHC 33.6 G/dL Normal 31.8-35.4 [facility] ([place] Comment on above: Performed By: #### L RADHA SARGENT MDW, CBC, GFR, CMP, TROPHS, ANEU #### [place] [address] MCV (RBC) [Entitic vol] 99.6 fL High 80.0-94.0 [facility] ([place]) Comment on above: Performed By: #### L RADHA SARGENT, KEIKO, CBC, GFR, CMP, TROPHS, ANEU #### [place] [address] Platelet 202 10 3/mcL Normal 130-400 [facility] ([place] Comment on above: Performed By: #### L BELLE, RADHA, W, CBC, GFR, CMP, TROPHS, ANEU #### [place] [address] Platelet mean volume (Bld) [Entitic vol] 9.2 fL Normal 7.4-10.4 [facility] ([place] Comment on above: Performed By: #### L RADHA SARGENT MDW, CBC, GFR, CMP, TROPHS, ANEU #### [address] [address] RBC 4.44 10 6/mcL Normal 4.04-6.13 [facility] ([place] Comment on above: Performed By: #### L RADHA SARGENT MDW, CBC, GFR, CMP, TROPHS, ANEU #### [place] [address] WBC 7.7 10 3/mcL Normal 4.6-10.8 [facility] ([place] Comment on above: Performed By: #### L RADHA SARGENT MDW, CBC, GFR, CMP, TROPHS, ANEU #### [place] [address] CMPon 10-05-2022 Albumin Level 3.6 G/dL Normal 3.4-4.8 [facility] ([place] Comment on above: Performed By: #### L RADHA SARGENT MDW, CBC, GFR, CMP, TROPHS, ANEU #### [place] [address] Albumin/Globulin [Mass ratio] 1.0 {ratio} Low 1.1-2.5 [facility] ([place] Comment on above: Performed By: #### L RADHA SARGENT MDW, CBC, GFR, CMP, TROPHS, ANEU #### [place] [id number] ALP [Catalytic activity/Vol] 144 U/L High 40-135 [facility] ([place] Comment on above: Performed By: #### L RADHA SARGENT MDW, CBC, GFR, CMP, TROPHS, ANEU #### [address] [address] ALT [Catalytic activity/Vol] 65 U/L High 16-63 [facility] ([place] Comment on above: Performed By: #### L RADHA SARGENT MDW, CBC, GFR, CMP, TROPHS, ANEU #### [address] [address] AST [Catalytic activity/Vol] 59 U/L High 10-40 [facility] ([place] Comment on above: Performed By: #### L RADHA SARGENT MDW, CBC, GFR, CMP, TROPHS, ANEU #### [address] [address] Bili Total 0.3 mg/dL Normal 0.2-1.0 [facility] ([place] Comment on above: Result Comment: Use of this assay is not recommended for patients undergoing treatment with eltrombopag due to the potential for falsely elevated results. Performed By: #### L RADHA SARGENT MDW, CBC, GFR, CMP, TROPHS, ANEU #### [address] [address] BUN/Creatinine Ratio 7 ratio Normal 7-27 [facility] ([place]) Comment on above: Performed By: #### L RADHA SARGENT MDW, CBC, GFR, CMP, TROPHS, ANEU #### [address] [address] Calcium [Mass/Vol] 9.1 mg/dL Normal 8.4-10.2 [facility] ([place]) Comment on above: Performed By: #### L RADHA SARGENT MDW, CBC, GFR, CMP, TROPHS, ANEU #### [address] [address] Chloride [Moles/Vol] 103 mmol/L Normal 98-107 [facility] ([place] Comment on above: Performed By: #### L RADHA SARGENT MDW, CBC, GFR, CMP, TROPHS, ANEU #### [address] [address] CO2 [Moles/Vol] 24 mmol/L Normal 23-31 [facility] ([place] Comment on above: Performed By: #### L RADHA SARGENT MDW, CBC, GFR, CMP, TROPHS, ANEU #### [address] [address] Creatinine [Mass/Vol] 1.09 mg/dL Normal 0.70-1.30 [facility] ([place]) Comment on above: Performed By: #### L RADHA SARGENT MDW, CBC, GFR, CMP, TROPHS, ANEU #### [address] [address] Electrolyte Balance 11.0 mEq/L Normal 4.0-15.0 [facility] ([place]) Comment on above: Performed By: #### L RADHA SARGENT MDW, CBC, GFR, CMP, TROPHS, ANEU #### [address] [address] Globulin 3.6 G/dL Normal [facility] ([place] Comment on above: Performed By: #### L RADHA SARGENT MDW, CBC, GFR, CMP, TROPHS, ANEU #### [address] [address] Glucose [Mass/Vol] 257 mg/dL High 80-115 [facility] ([place] Comment on above: Performed By: #### L RADHA SARGENT MDW, CBC, GFR, CMP, TROPHS, ANEU #### [address] [address] Potassium [Moles/Vol] 4.3 mmol/L Normal 3.5-5.1 [facility] ([place] Comment on above: Performed By: #### L RADHA SARGENT MDW, CBC, GFR, CMP, TROPHS, ANEU #### [address] [address] Sodium [Moles/Vol] 138 mmol/L Normal 136-145 [facility] ([place] Comment on above: Performed By: #### L RADHA SARGENT MDW, CBC, GFR, CMP, TROPHS, ANEU #### [address] [address] Total Protein 7.2 G/dL Normal 6.4-8.2 [facility] ([place] Comment on above: Performed By: #### L RADHA SARGENT MDW, CBC, GFR, CMP, TROPHS, ANEU #### [address] [address] Urea nitrogen [Mass/Vol] 8 mg/dL Normal 7-18 [facility] ([place] Comment on above: Performed By: #### L BELLE, KEIKO GARCIA, CBC, GFR, CMP, TROPHS, ANEU #### [facility] [address] [place] [address] ANGIO CHEST W+W/O CONTRAS T DISSECTIONon [...] Date: 10/05/2022 3:45:22 PM Ordering Provider[facility] ([place] LABORATORYOrdered By: SYSTEM SYSTEM on 10-05-2022 Albumin [...] LIPon 10-05-2022 Lipase Level <10 Low 16-77 [facility] ([place] Comment on above: Performed By: #### L RADHA SARGENT MDW, CBC, GFR, CMP, TROPHS, ANEU #### [address] [address] TROPHSon 10-05-2022 Troponin I High Sensitivity 30.7 ng/L Normal 0.0-76.2 [facility] ([place] Comment on above: Performed By: #### L RADHA SARGENT MDW, CBC, GFR, CMP, TROPHS, ANEU #### [address] [address] XR UPPER GIon 09-22-2022 XR UPPER GI [...] 09/22/2022 3:40:06 PM Ordering Provider: ANDREAS PATHAK [facility] ([place]) LABORATORYOrdered By: Samantha panda on 09-17-2022 Glucose [Mass/Vol] 257 mg/dL High 82 - 115 mg/dL [facility] Work Phone: HbA1c (Bld) [Mass fraction] 8.5 % [facility] Work Phone: Lab Performed By Samantha Huber PharmD [facility] Work Phone: Lab Performing Location [facility] Work Phone: Laboratory - Chemistry and C hemistry - challengeOrdered By: Ti Robbins on 08-15-2022 Glucose [Mass/Vol] 353 mg/dL High 82 - 115 mg/dL [facility] Work Phone: Glucose Glucometer (BldC) [M ass/Vol]Ordered By: Sinan Abarca on 07-21-2022 Glucose [Mass/Vol] 166 mg/dL 74-106 [facility] Comment on above: MANAGEMENT OF PATIEN T CARE PER NURSING PROTOCOL Absolute lymphocyte countOrd ered By: Sinan Abarca on 07-20-2022 Lymphocytes Auto (Unsp spec) [#/Vol] 1.83 10*3/uL 0.83-4.51 [facility] Basophil percentageOrdered B y: Sinan Abarca on 07-20-2022 Potassium [Moles/Vol] 3.2 mmol/L 3.5-5.1 [facility] Basophil percentage 0 SEEN /hpf 0-5 [facility] Basophils/100 WBC (Bld) 2.1 % 0-1 [facility] Bilirubin [Mass/Vol] 0.20 mg/dL 0.20-1.00 [facility] Comment on above: For patients on eltr ombopag therapy, use of Dimension [place] TBIL is not recommended. Chloride [Moles/Vol] 97 mmol/L 98-107 [facility] Eosinophils/100 WBC (Bld) 4.2 % 0-5 [facility] Glucose [Mass/Vol] 381 mg/dL 74-106 [facility] Comment on above: Glucose result great er than or equal to 200 mg/dLsuggests DIABETES MELLITUS per A.D.A. criteria. Neutrophils (Bld) [#/Vol] 2.1 10*3/uL 2.0-7.7 [facility] Neutrophils/100 WBC (Bld) 43.9 % 47-70 [facility] Protein [Mass/Vol] 6.3 g/dL 6.4-8.2 [facility] Sodium [Moles/Vol] 144 mmol/L 136-145 [facility] WBC (Bld) [#/Vol] 4.7 10*3/uL 4.4-11.0 [facility] Bilirubin Test strip Ql (U)O rdered By: Sinan Abarca on 07-20-2022 Bilirubin Ql (U) Negative Negative [facility] Blood erythrocytes count (nu mber/volume)Ordered By: Sinan Abarca on 07-20-2022 RBC (Bld) [#/Vol] 3.63 10*6/uL 4.6-6.2 [facility] Blood hemoglobin measurement (mass/volume)Ordered By: Sinan Abarca on 07-20-2022 Hemoglobin (Bld) [Mass/Vol] 12.4 g/dL 13.0-16.5 [facility] Blood lymphocytes/100 leukoc ytesOrdered By: Sinan Abarca on 07-20-2022 Lymphocytes/100 WBC (Bld) 38.6 % 19-41 [facility] Blood monocytes/100 leukocyt esOrdered By: Sinan Abarca on 07-20-2022 Monocytes/100 WBC (Bld) 10.8 % 0-10 [facility] Blood platelet mean volumeOr dered By: Sinan Abarca on 07-20-2022 Platelet mean volume (Bld) [Entitic vol] 10.0 fL 6.2-12.0 [facility] Determination of erythrocyte mean corpuscular volume (MCV)Ordered By: Sinan Abarca on 07-20-2022 MCV (RBC) [Entitic vol] 103.9 fL 80-94 [facility] Hematocrit Auto (Bld) [Volum e fraction]Ordered By: Sinan Abarca on 07-20-2022 Hematocrit (Bld) [Volume fraction] 37.7 % 40-54 [facility] Ketones Test strip Ql (U)Ord ered By: Sinan Abarca on 07-20-2022 Ketones Ql (U) Negative Negative [facility] Laboratory - Chemistry and C hemistry - challengeOrdered By: Sinan Abarca on 07-20-2022 ALP [Catalytic activity/Vol] 120 U/L 45-117 [facility] ALT [Catalytic activity/Vol] 30 U/L 16-61 [facility] CO2 [Moles/Vol] 41.0 mmol/L 21.0-32.0 [facility] Globulin (S) [Mass/Vol] 3.2 g/dL 2.2-4.2 [facility] Magnesium [Mass/Vol] 2.3 mg/dL 1.6-2.6 [facility] Urea nitrogen/Creatinine [Mass ratio] 7.5 mg/mg 10-20 [facility] Laboratory - Hematology and Cell countsOrdered By: Sinan Abarca on 07-20-2022 Erythrocyte distribution width (RBC) [Entitic vol] 56.5 fL 35.1-43.9 [facility] Erythrocyte distribution width (RBC) [Ratio] 14.6 % 11.6-14.6 [facility] Immature granulocytes/100 WBC (Bld) 0.400 % 0.0-0.9 [facility] Comment on above: IG% - Immature Granu locytes (promyelocytes, myelocytes and metamyelocytes) > 1% indicates that a LEFT SHIFT is Present. MCH (RBC) [Entitic mass] 34.2 pg 27.0-32.0 [facility] Nucleated RBC/100 WBC (Bld) [Ratio] 0 % 0-5 [facility] MCHC Auto (RBC) [Mass/Vol]Or dered By: Sinan Abarca on 07-20-2022 MCHC (RBC) [Mass/Vol] 32.9 g/dL 32-36 [facility] Mucus LM Ql (Urine sed)Order ed By: Sinan Abarca on 07-20-2022 Mucus Ql (Urine sed) 0 SEEN /hpf [facility] Nitrite Test strip Ql (U)Ord ered By: Sinan Abarca on 07-20-2022 Nitrite Ql (U) Negative Negative [facility] No Panel InformationOrdered By: Sinan Abarca on 07-20-2022 Estimated Creatinine Clearance Calc 74.19 ml/min [facility] Estimated GFR (MDRD) Amer 92 mL/min >60 [facility] Comment on above: GFR Calc Estimated GFR (MDRD) Non-Af Amer 76 mL/min >60 [facility] Comment on above: Non- GFR Calc Ethyl Alcohol Level 292.0 mg/dL [facility] Comment on above: Critical Result(s) C alled [...] 07-20-2022 Platelets (Bld) [#/Vol] 241 10*3/uL 150-450 [facility] Protein Test strip Ql (U)Ord ered By: Sinan Abarca on 07-20-2022 Protein Ql (U) Negative Negative [facility] Serum or plasma acetone luciana urement (mass/volume)Ordered By: Sinan Abarca on 07-20-2022 Acetone [Mass/Vol] Negative NEG [facility] Serum or plasma albumin luciana urement (mass/volume)Ordered By: Sinan Abarca on 07-20-2022 Albumin [Mass/Vol] 3.1 g/dL 3.2-5.0 [facility] Serum or plasma albumin/glob ulin mass ratioOrdered By: Sinan Abarca on 07-20-2022 Albumin/Globulin [Mass ratio] 1.0 {ratio} 0.9-2.4 [facility] Serum or plasma calcium luciana urement (mass/volume)Ordered By: Sinan Abarca on 07-20-2022 Calcium [Mass/Vol] 8.3 mg/dL 8.5-10.1 [facility] Serum or plasma creatinine m easurement (mass/volume)Ordered By: Sinan Abarca on 07-20-2022 Creatinine [Mass/Vol] 1.06 mg/dL 0.70-1.30 [facility] Comment on above: The validity of the calculated GFR & GFRAA in patients over 70 years has not been determined. Clinical correlation is essential. Serum or plasma urea nitroge n measurement (mass/volume)Ordered By: Sinan Abarca on 07-20-2022 Urea nitrogen [Mass/Vol] 8 mg/dL 7-18 [facility] Squamous epithelial cells de tection in urine sediment by light microscopyOrdered By: Sinan Abarca on 07-20-2022 Epithelial cells.squamous LM Ql (Urine sed) 0 SEEN /hpf 0-5 [facility] Thin prep Papanicolaou smear with manual screeningOrdered By: Sinan Abarca on 07-20-2022 Thin prep Papanicolaou smear with manual screening 50 U/L 15-37 [facility] Thin prep Papanicolaou smear with manual screening 6 5-15 [facility] Urine blood detectionOrdered By: Sinan Abarca on 07-20-2022 RBC Ql (U) Negative Negative [facility] RBC Ql (U) 0 SEEN /hpf 0-5 [facility] Urine clarityOrdered By: Ramon Abarca on 07-20-2022 Clarity (U) Clear Clear [facility] Urine color determinationOrd ered By: Sinan Abarca on 07-20-2022 Color (U) Straw Yellow [facility] Urine glucose detectionOrder ed By: Sinan Abarca on 07-20-2022 Glucose Ql (U) 1000 mg/dl Normal [facility] Urine leukocyte esterase det ection by dipstickOrdered By: Sinan Abarca on 07-20-2022 Leukocyte esterase Test strip Ql (U) Negative Negative [facility] Urine pHOrdered By: Sinan gonzalez on 07-20-2022 pH (U) 8.0 [pH] 5.0 - 8.0 [facility] Urine sediment bacteria coun t by microscopy (number/high power field)Ordered By: Sinan Abarca on 07-20-2022 Bacteria LM.HPF (Urine sed) [#/Area] 0 /[HPF] None Seen [facility] Urine specific gravity measu rementOrdered By: Sinan Abarca on 07-20-2022 Specific gravity (U) [Rel density] 1.010 1.002-1.030 [facility] Urobilinogen Auto test strip Ql (U)Ordered By: Sinan Abarca on 07-20-2022 Urobilinogen Ql (U) Normal mg/dl Normal [facility] LABORATORYOrdered By: Cyndi Moya on 07-02-2022 Albumin [...] 07-02-2022 U Creatinine 23.2 mg/dL Low 39.0-259.0 [facility] ([place]) Comment on above: Performed By: #### M ALBR #### [address] [place] [address] U Microalb 6479 mcg/dL Normal [facility] ([place]) Comment on above: Performed By: #### M ALBR #### [place] [address] [address] U Ratio Alb/Cre 279 mcg/mg High 0-30 [facility] ([place]) Comment on above: Performed By: #### M ALBR #### [place] [address] [address] RENINDon 06-22-2022 Direct Renin 9.5 pg/mL Normal 3.6-81.6 [facility] ([place]) Comment on above: Result Comment: A ra [...] Age >=41 years: 2.5-45.1 pg/mL Performed By: [facility] [address] [place] [address] Hospital Superintendent: Jaya Jones III, M.D. CLIA#: [id number] Performed By: #### L RADHA SARGENT MDW, CBC, GFR, CMP, TROPHS, ANEU #### [place] [address] Patient Upright or Supine Upright Normal [facility] ([place]) Comment on above: Result Comment: Perf ormed By: [facility] [address] [place] [id number] Hospital Superintendent: Jaya Jones III, M.D. CLIA#: [id number] Performed By: #### L RADHA SARGENT MDW, CBC, GFR, CMP, TROPHS, ANEU #### [address] [address] PTHon 06-20-2022 PTH, Intact 135.8 pg/mL High 18.5-88.0 [facility] ([place] Comment on above: Performed By: #### L BELLE, ALVAIFF, MDW, CBC, GFR, CMP, TROPHS, ANEU #### [address] [address] .Auto Diffon 06-19-2022 Basophil, Absolute 0.0 10 3/mcL Normal 0.0-0.2 [facility] ([place]) Comment on above: Performed By: #### L AC, ADIFF, MDW, CBC, GFR, CMP, TROPHS, ANEU #### [address] [address] Basophils/100 WBC (Bld) 0.3 % Normal 0.0-2.5 A [facility] ([place]) Comment on above: Performed By: #### L AC, ADIFF, MDW, CBC, GFR, CMP, TROPHS, ANEU #### [address] [address] Eosinophil, Absolute 0.1 10 3/mcL Normal 0.0-0.4 [facility] ([place]) Comment on above: Performed By: #### L AC, ADIFF, MDW, CBC, GFR, CMP, TROPHS, ANEU #### [address] [address] Eosinophils/100 WBC (Bld) 0.8 % Normal 0.0-7.0 [facility] ([place]) Comment on above: Performed By: #### L AC, ADIFF, MDW, CBC, GFR, CMP, TROPHS, ANEU #### [address] [address] Lymphocyte, Absolute 1.2 10 3/mcL Normal 0.8-3.9 [facility] ([place]) Comment on above: Performed By: #### L AC, ADIFF, MDW, CBC, GFR, CMP, TROPHS, ANEU #### [address] [address] Lymphocytes/100 WBC (Bld) 17.6 % Normal 10.0-50.0 [facility] ([place]) Comment on above: Performed By: #### L AC, ADIFF, MDW, CBC, GFR, CMP, TROPHS, ANEU #### [address] [address] Monocyte, Absolute 0.7 10 3/mcL Normal 0.2-1.0 [facility] ([place]) Comment on above: Performed By: #### L RADHA SARGENT MDW, CBC, GFR, CMP, TROPHS, ANEU #### [address] [address] Monocytes/100 WBC (Bld) 10.1 % Normal 1.7-13.0 A [facility] ([place] Comment on above: Performed By: #### L RADHA SARGENT MDW, CBC, GFR, CMP, TROPHS, ANEU #### [address] [address] Neutrophils/100 WBC (Bld) 71.2 % Normal 37.0-80.0 [facility] ([place] Comment on above: Performed By: #### L RADHA SARGENT MDW, CBC, GFR, CMP, TROPHS, ANEU #### [address] [address] .GFRon 06-19-2022 GFR 107 ml/min/1.73sqm Normal [facility] ([place]) Comment on above: Result Comment: GFR Population [...] MDW, CBC, GFR, CMP, TROPHS, ANEU #### [address] [address] GFR Non- 89 ml/min/1.73sqm Normal [facility] ([place] Comment on above: Result Comment: GFR Population [...] MDW, CBC, GFR, CMP, TROPHS, ANEU #### [place] [address] .NEUABSon 06-19-2022 Neutrophil, Absolute 5.0 10 3/mcL Normal 2.9-6.2 [facility] ([place] Comment on above: Performed By: #### L RADHA SARGENT MDW, CBC, GFR, CMP, TROPHS, ANEU #### [address] [address] A1Con 06-19-2022 HbA1c (Bld) [Mass fraction] 9.6 % High 4.3-6.4 [facility] ([place] Comment on above: Performed By: #### L RADHA SARGENT MDW, CBC, GFR, CMP, TROPHS, ANEU #### [place] [id number] CBCon 06-19-2022 Erythrocyte distribution width (RBC) [Ratio] 15.2 % High 11.5-14.5 [facility] ([place] Comment on above: Performed By: #### RADHA COSTA MDW, CBC, GFR, CMP, TROPHS, ANEU #### [address] [address] Hematocrit (Bld) [Volume fraction] 40.7 % Low 42.0-52.0 [facility] ([place] Comment on above: Performed By: #### L RADHA SARGENT MDW, CBC, GFR, CMP, TROPHS, ANEU #### [place] [address] Hgb 13.7 G/dL Low 14.0-18.0 [facility] ([place] Comment on above: Performed By: #### L RADHA SARGENT MDW, CBC, GFR, CMP, TROPHS, ANEU #### [place] [address] MCH (RBC) [Entitic mass] 34.1 pg High 27.0-31.2 [facility] ([place] Comment on above: Performed By: #### L RADHA SARGENT MDW, CBC, GFR, CMP, TROPHS, ANEU #### [place] [address] MCHC 33.7 G/dL Normal 31.8-35.4 [facility] ([place] Comment on above: Performed By: #### L RADHA SARGENT MDW, CBC, GFR, CMP, TROPHS, ANEU #### [place] [address] MCV (RBC) [Entitic vol] 101.1 fL High 80.0-94.0 A [facility] ([place]) Comment on above: Performed By: #### L RADHA SARGENT MDW, CBC, GFR, CMP, TROPHS, ANEU #### [place] [address] Platelet 279 10 3/mcL Normal 130-400 [facility] ([place]) Comment on above: Performed By: #### L RADHA SARGENT MDW, CBC, GFR, CMP, TROPHS, ANEU #### [place] [address] Platelet mean volume (Bld) [Entitic vol] 9.2 fL Normal 7.4-10.4 [facility] ([place]) Comment on above: Performed By: #### L RADHA SARGENT MDW, CBC, GFR, CMP, TROPHS, ANEU #### [place] [address] RBC 4.03 10 6/mcL Low 4.04-6.13 [facility] ([place]) Comment on above: Performed By: #### L RADHA SARGENT MDW, CBC, GFR, CMP, TROPHS, ANEU #### [address] [address] WBC 7.1 10 3/mcL Normal 4.6-10.8 [facility] ([place]) Comment on above: Performed By: #### L RADHA SARGENT MDW, CBC, GFR, CMP, TROPHS, ANEU #### [address] [address] CMPon 06-19-2022 Albumin Level 3.5 G/dL Normal 3.5-5.0 [facility] ([place]) Comment on above: Performed By: #### L RADHA SARGENT MDW, CBC, GFR, CMP, TROPHS, ANEU #### [address] [address] Albumin/Globulin [Mass ratio] 1.0 {ratio} Low 1.1-2.5 [facility] ([place] Comment on above: Performed By: #### L RADHA SARGENT MDW, CBC, GFR, CMP, TROPHS, ANEU #### [address] [address] ALP [Catalytic activity/Vol] 174 U/L High 40-135 [facility] ([place]) Comment on above: Performed By: #### L RADHA SARGENT MDW, CBC, GFR, CMP, TROPHS, ANEU #### [address] [address] ALT [Catalytic activity/Vol] 44 U/L Normal 16-63 [facility] ([place] Comment on above: Performed By: #### L RADHA SARGENT MDW, CBC, GFR, CMP, TROPHS, ANEU #### [address] [address] AST [Catalytic activity/Vol] 54 U/L High 10-40 [facility] ([place] Comment on above: Performed By: #### L RADHA SARGENT, W, CBC, GFR, CMP, TROPHS, ANEU #### [address] [address] Bili Total 0.4 mg/dL Normal 0.2-1.0 [facility] ([place]) Comment on above: Result Comment: Use of this assay is not recommended for patients undergoing treatment with eltrombopag due to the potential for falsely elevated results. Performed By: #### L RADHA SARGENT MDW, CBC, GFR, CMP, TROPHS, ANEU #### [place] [id number] BUN/Creatinine Ratio 6 ratio Low 7-27 [facility] ([place]) Comment on above: Performed By: #### L RADHA SARGENT MDW, CBC, GFR, CMP, TROPHS, ANEU #### [place] [id number] Calcium [Mass/Vol] 9.3 mg/dL Normal 8.4-10.2 [facility] ([place]) Comment on above: Performed By: #### L RADHA SARGENT MDW, CBC, GFR, CMP, TROPHS, ANEU #### [place] [id number] Chloride [Moles/Vol] 98 mmol/L Normal 98-107 [facility] ([place] Comment on above: Performed By: #### L RADHA SARGENT MDW, CBC, GFR, CMP, TROPHS, ANEU #### [place] [id number] CO2 [Moles/Vol] 30 mmol/L High 22-29 [facility] ([place] Comment on above: Performed By: #### L RADHA SARGENT MDW, CBC, GFR, CMP, TROPHS, ANEU #### [address] [address] Creatinine [Mass/Vol] 0.88 mg/dL Normal 0.70-1.30 [facility] ([place]) Comment on above: Performed By: #### L RADHA SARGENT MDW, CBC, GFR, CMP, TROPHS, ANEU #### [address] [address] Electrolyte Balance 3.0 mEq/L Low 4.0-15.0 [facility] ([place]) Comment on above: Performed By: #### L RADHA SARGENT MDW, CBC, GFR, CMP, TROPHS, ANEU #### [address] [address] Globulin 3.5 G/dL Normal [facility] ([place] Comment on above: Performed By: #### L RADHA SARGENT MDW, CBC, GFR, CMP, TROPHS, ANEU #### [address] [address] Glucose [Mass/Vol] 217 mg/dL High 70-105 [facility] ([place] Comment on above: Performed By: #### L RADHA SARGENT MDW, CBC, GFR, CMP, TROPHS, ANEU #### [place] [id number] Potassium [Moles/Vol] 4.5 mmol/L Normal 3.5-5.1 [facility] ([place] Comment on above: Performed By: #### L RADHA SARGENT MDW, CBC, GFR, CMP, TROPHS, ANEU #### [place] [address] Sodium [Moles/Vol] 131 mmol/L Low 136-145 [facility] ([place] Comment on above: Performed By: #### L RADHA SARGENT MDW, CBC, GFR, CMP, TROPHS, ANEU #### [address] [address] Total Protein 7.0 G/dL Normal 6.4-8.2 [facility] ([place] Comment on above: Performed By: #### L RADHA SARGENT MDW, CBC, GFR, CMP, TROPHS, ANEU #### [address] [address] Urea nitrogen [Mass/Vol] 5 mg/dL Low 7-18 [facility] ([place] Comment on above: Performed By: #### L RADHA SARGENT MDW, CBC, GFR, CMP, TROPHS, ANEU #### [address] [address] LABORATORYOrdered By: SYSTEM SYSTEM on 06-19-2022 25-hydroxyvitamin [...] [Mass/Vol] 172 mg/dL Normal 0-200 [facility] ([place]) Comment on above: Result Comment: Chol esterol Reference Interval: Less than 200 Desirable 200-239 Borderline high risk 240 and above High risk Performed By: #### L RADHA SARGENT MDW, CBC, GFR, CMP, TROPHS, ANEU #### [address] [address] Cholesterol in HDL [Mass/Vol] 47 mg/dL Normal 40-60 [facility] ([place] Comment on above: Performed By: #### L RADHA SARGENT MDW, CBC, GFR, CMP, TROPHS, ANEU #### [address] [address] Cholesterol in LDL [Mass/Vol] 92 mg/dL Normal 0-130 [facility] ([place] Comment on above: Performed By: #### L RADHA SARGENT MDW, CBC, GFR, CMP, TROPHS, ANEU #### [place] [address] Triglyceride [Mass/Vol] 164 mg/dL High 0-150 [facility] ([place]) Comment on above: Result Comment: Trig lyceride Reference Interval: Less than 150 Normal 150-199 Borderline high risk 200-499 High risk 500 or higher Very high risk Performed By: #### L RADHA SARGENT MDW, CBC, GFR, CMP, TROPHS, ANEU #### [place] [address] PSAon 06-19-2022 Prostate Specific Antigen 0.38 ng/mL Normal 0.00-4.00 [facility] ([place] Comment on above: Performed By: #### L RADHA SARGENT MDW, CBC, GFR, CMP, TROPHS, ANEU #### [place] [address] VIDHon 06-19-2022 Vit. D 25-Hydroxy <5.0 Normal [facility] ([place]) Comment on above: Result Comment: Inte rpretive Values Based on Total 25(OH) Vitamin D: Deficient <20 ng/mL Insufficient 20 - <30 ng/mL Sufficient 30-100 ng/mL Performed By: #### L RADHA SARGENT MDW, CBC, GFR, CMP, TROPHS, ANEU #### [place] [address] [address] HEAD OR BRAIN W/O CONTRAS Ton [...] Sign Date: 05/13/2022 7:45:15 PM Ordering Provider: [facility] CT SPINE CERVICAL W/O CONTRA STon [...] Sign Date: 05/13/2022 7:46:30 PM [facility] SPINE LUMBOSACRAL MINIMUM 4 VIEWSon 05-13-2022 [...] 05/13/2022 8:46:22 PM Ordering Provider: MERRICK White [facility] ([place]) Glucose Glucometer (BldC) [M ass/Vol]Ordered By: Dr. Dutton on 03-24-2022 Glucose [Mass/Vol] 223 mg/dL 74-106 [facility] Comment on above: MANAGEMENT OF PATIEN T CARE PER NURSING PROTOCOL Basophil percentageOrdered B y: Dr. Dutton on 03-23-2022 Chloride [Moles/Vol] 107 mmol/L 98-107 [facility] Glucose [Mass/Vol] 149 mg/dL 74-106 [facility] Comment on above: Fasting Glucose resu lt greater than or equal to 126 mg/dL suggests DIABETES MELLITUS per A.D.A. criteria. Potassium [Moles/Vol] 4.9 mmol/L 3.5-5.1 [facility] Sodium [Moles/Vol] 140 mmol/L 136-145 [facility] Laboratory - Chemistry and C hemistry - challengeOrdered By: Dr. Dutton on 03-23-2022 CO2 [Moles/Vol] 30.0 mmol/L 21.0-32.0 [facility] Magnesium [Mass/Vol] 1.8 mg/dL 1.6-2.6 [facility] Urea nitrogen/Creatinine [Mass ratio] 8.1 mg/mg 10-20 [facility] No Panel InformationOrdered By: Dr. Dutton on 03-23-2022 Estimated Creatinine Clearance Calc 80.56 ml/min [facility] Estimated GFR (MDRD) Amer 116 mL/min >60 [facility] Comment on above: GFR Calc Estimated GFR (MDRD) Non-Af Amer 96 mL/min >60 [facility] Comment on above: Non- GFR Calc Serum or plasma calcium luciana urement (mass/volume)Ordered By: Dr. Dutton on 03-23-2022 Calcium [Mass/Vol] 7.7 mg/dL 8.5-10.1 [facility] Serum or plasma creatinine m easurement (mass/volume)Ordered By: Dr. Dutton on 03-23-2022 Creatinine [Mass/Vol] 0.87 mg/dL 0.70-1.30 [facility] Comment on above: The validity of the calculated GFR & GFRAA in patients over 70 years has not been determined. Clinical correlation is essential. Serum or plasma urea nitroge n measurement (mass/volume)Ordered By: Dr. Dutton on 03-23-2022 Urea nitrogen [Mass/Vol] 7 mg/dL 7-18 [facility] Thin prep Papanicolaou smear with manual screeningOrdered By: Dr. Dutton on 03-23-2022 Thin prep Papanicolaou smear with manual screening 3 5-15 [facility] Basophil percentageOrdered B y: Dr. Aguayo on 03-22-2022 Bilirubin [Mass/Vol] 1.10 mg/dL 0.20-1.00 [facility] Comment on above: For patients on eltr ombopag therapy, use of Dimension [place] TBIL is not recommended. Protein [Mass/Vol] 4.4 g/dL 6.4-8.2 [facility] Laboratory - Chemistry and C hemistry - challengeOrdered By: Dr. Aguayo on 03-22-2022 ALP [Catalytic activity/Vol] 104 U/L 45-117 [facility] ALT [Catalytic activity/Vol] 76 U/L 16-61 [facility] Globulin (S) [Mass/Vol] 2.4 g/dL 2.2-4.2 [facility] Serum or plasma albumin luciana urement (mass/volume)Ordered By: Dr. Aguayo on 03-22-2022 Albumin [Mass/Vol] 2.0 g/dL 3.2-5.0 [facility] Serum or plasma albumin/glob ulin mass ratioOrdered By: Dr. Aguayo on 03-22-2022 Albumin/Globulin [Mass ratio] 0.8 {ratio} 0.9-2.4 [facility] Thin prep Papanicolaou smear with manual screeningOrdered By: Dr. Aguayo on 03-22-2022 Thin prep Papanicolaou smear with manual screening 254 U/L 15-37 [facility] Whole blood hemoglobin A1c/t otal hemoglobin ratio (mass fraction)Ordered By: Dr. Aguayo on 03-22-2022 HbA1c (Bld) [Mass fraction] 8.3 % 3.8-5.6 [facility] Comment on above: Normal < 5.7 % Predi abetic 5.7 - 6.4 % Diabetic >or= 6.5 % Please note range changes. Absolute lymphocyte countOrd ered By: Dr. Lomeli on 03-21-2022 Lymphocytes Auto (Unsp spec) [#/Vol] 0.60 10*3/uL 0.83-4.51 [facility] Basophil percentageOrdered B y: Dr. Aguayo on 03-21-2022 Basophil percentage 3.6 mg/dL 2.5-4.9 [facility] Bilirubin [Mass/Vol] 1.40 mg/dL 0.20-1.00 [facility] Comment on above: For patients on eltr ombopag therapy, use of Dimension [place] TBIL is not recommended. Protein [Mass/Vol] 5.8 g/dL 6.4-8.2 [facility] Basophil percentageOrdered B y: Dr. Lomeli on 03-21-2022 Basophils/100 WBC (Bld) 0.8 % 0-1 [facility] Chloride [Moles/Vol] 98 mmol/L 98-107 [facility] Eosinophils/100 WBC (Bld) 5.6 % 0-5 [facility] Glucose [Mass/Vol] 294 mg/dL 74-106 [facility] Comment on above: Glucose result great er than or equal to 200 mg/dLsuggests DIABETES MELLITUS per A.D.A. criteria. Neutrophils (Bld) [#/Vol] 4.5 10*3/uL 2.0-7.7 [facility] Neutrophils/100 WBC (Bld) 75.0 % 47-70 [facility] Potassium [Moles/Vol] 3.2 mmol/L 3.5-5.1 [facility] Sodium [Moles/Vol] 142 mmol/L 136-145 [facility] WBC (Bld) [#/Vol] 6.0 10*3/uL 4.4-11.0 [facility] Blood erythrocytes count (nu mber/volume)Ordered By: Dr. Lomeli on 03-21-2022 RBC (Bld) [#/Vol] 3.88 10*6/uL 4.6-6.2 [facility] Blood hemoglobin measurement (mass/volume)Ordered By: Dr. Lomeli on 03-21-2022 Hemoglobin (Bld) [Mass/Vol] 13.2 g/dL 13.0-16.5 [facility] Blood lymphocytes/100 leukoc ytesOrdered By: Dr. Lomeli on 03-21-2022 Lymphocytes/100 WBC (Bld) 10.0 % 19-41 [facility] Blood manual differential co mment interpretation (narrative result)Ordered By: Dr. Lomeli on 03-21-2022 Manual differential comment Jose Carlos (Bld) [Interp] SCANNED [facility] Comment on above: LYMPHOPENIA NOTED Blood monocytes/100 leukocyt esOrdered By: Dr. Lomeli on 03-21-2022 Monocytes/100 WBC (Bld) 8.1 % 0-10 [facility] Blood platelet mean volumeOr dered By: Dr. Lomeli on 03-21-2022 Platelet mean volume (Bld) [Entitic vol] 11.1 fL 6.2-12.0 [facility] Determination of erythrocyte mean corpuscular volume (MCV)Ordered By: Dr. Lomeli on 03-21-2022 MCV (RBC) [Entitic vol] 98.7 fL 80-94 [facility] Direct bilirubinOrdered By: Dr. Aguayo on 03-21-2022 Bilirubin.direct [Mass/Vol] 0.55 mg/dL 0.00-0.30 [facility] Glucose Glucometer (BldC) [M ass/Vol]Ordered By: Dr. Alvarado on 03-21-2022 Glucose [Mass/Vol] 337 mg/dL 74-106 [facility] Comment on above: MANAGEMENT OF PATIEN T CARE PER NURSING PROTOCOL Hematocrit Auto (Bld) [Volum e fraction]Ordered By: Dr. Lomeli on 03-21-2022 Hematocrit (Bld) [Volume fraction] 38.3 % 40-54 [facility] Laboratory - Chemistry and C hemistry - challengeOrdered By: Dr. Aguayo on 03-21-2022 ALP [Catalytic activity/Vol] 144 U/L 45-117 [facility] ALT [Catalytic activity/Vol] 108 U/L 16-61 [facility] Globulin (S) [Mass/Vol] 3.0 g/dL 2.2-4.2 [facility] Magnesium [Mass/Vol] 1.2 mg/dL 1.6-2.6 [facility] Laboratory - Chemistry and C hemistry - challengeOrdered By: Dr. Lomeli on 03-21-2022 CO2 [Moles/Vol] 32.0 mmol/L 21.0-32.0 [facility] Urea nitrogen/Creatinine [Mass ratio] 3.6 mg/mg 10-20 [facility] Laboratory - Drug toxicology Ordered By: Dr. Lomeli on 03-21-2022 Amphetamines Ql (U) Negative <1000 ng/mL [facility] Benzodiazepines Ql (U) Negative < 200 ng/mL [facility] Cannabinoids Screen Ql (U) Negative < 50 ng/mL [facility] Cocaine Ql (U) Negative < 300 ng/mL [facility] Opiates Ql (U) Negative < 300 ng/mL [facility] Laboratory - Hematology and Cell countsOrdered By: Dr. Lomeli on 03-21-2022 Erythrocyte distribution width (RBC) [Entitic vol] 49.6 fL 35.1-43.9 [facility] Erythrocyte distribution width (RBC) [Ratio] 13.6 % 11.6-14.6 [facility] Immature granulocytes/100 WBC (Bld) 0.500 % 0.0-0.9 [facility] Comment on above: IG% - Immature Granu locytes (promyelocytes, myelocytes and metamyelocytes) > 1% indicates that a LEFT SHIFT is Present. MCH (RBC) [Entitic mass] 34.0 pg 27.0-32.0 [facility] Nucleated RBC/100 WBC (Bld) [Ratio] 0 % 0-5 [facility] MCHC Auto (RBC) [Mass/Vol]Or dered By: Dr. Lomeli on 03-21-2022 MCHC (RBC) [Mass/Vol] 34.5 g/dL 32-36 [facility] No Panel InformationOrdered By: Dr. Lomeli on 03-21-2022 MDMA (Ecstasy) Screen Negative < 500 ng/mL [facility] Urine Barbiturates Screen Negative < 200 ng/mL [facility] Urine Drug Screen Comment [facility] Comment on above: CONFIRMATORY TESTING [...] Methadone Screen Negative < 300 ng/mL [facility] Estimated Creatinine Clearance Calc 68.96 ml/min [facility] Estimated GFR (MDRD) Amer 87 mL/min >60 [facility] Comment on above: GFR Calc Estimated GFR (MDRD) Non-Af Amer 72 mL/min >60 [facility] Comment on above: Non- GFR Calc Ethyl Alcohol Level < 3.0 mg/dL [facility] Comment on above: The serum:whole bloo d ethanol ratio is approximately 1.14and varies slightly with hematocrit. Medical Alcohol reference interval and critical value innon-tolerant individuals; 50 - 100 Impairment 100 Intoxication 100 - 250 Severe Poisoning 250 - 400 Deep/possible fatal coma Platelets bldOrdered By: Dr. Lomeli on 03-21-2022 Platelets (Bld) [#/Vol] 144 10*3/uL 150-450 [facility] Serum or plasma albumin luciana urement (mass/volume)Ordered By: Dr. Aguayo on 03-21-2022 Albumin [Mass/Vol] 2.8 g/dL 3.2-5.0 [facility] Serum or plasma calcium luciana urement (mass/volume)Ordered By: Dr. Lomeli on 03-21-2022 Calcium [Mass/Vol] 8.3 mg/dL 8.5-10.1 [facility] Serum or plasma creatinine m easurement (mass/volume)Ordered By: Dr. Lomeli on 03-21-2022 Creatinine [Mass/Vol] 1.11 mg/dL 0.70-1.30 [facility] Comment on above: The validity of the calculated GFR & GFRAA in patients over 70 years has not been determined. Clinical correlation is essential. Serum or plasma urea nitroge n measurement (mass/volume)Ordered By: Dr. Lomeli on 03-21-2022 Urea nitrogen [Mass/Vol] 4 mg/dL 7-18 [facility] Thin prep Papanicolaou smear with manual screeningOrdered By: Dr. Aguayo on 03-21-2022 Thin prep Papanicolaou smear with manual screening 334 U/L 15- [facility] Thin prep Papanicolaou smear with manual screeningOrdered By: Dr. Lomeli on 03-21-2022 Thin prep Papanicolaou smear with manual screening 12 - [facility] Urine phencyclidine (PCP) de tectionOrdered By: Dr. Lomeli on 03-21-2022 Phencyclidine Ql (U) Negative < 25 ng/mL [facility] Basophil percentageOrdered B y: Dr. Dutton on 02-04-2022 Glucose [Mass/Vol] 516 mg/dL 74-106 [facility] Comment on above: Critical Result(s) C alled at: 11:23:39 02/04/2022 by: Estefany Rosenberg. Results read back by same.Glucose result greater than or equal to 200 mg/dLsuggests DIABETES MELLITUS per A.D.A. criteria. Glucose Glucometer (BldC) [M ass/Vol]Ordered By: Dr. Duttno on 02-04-2022 Glucose [Mass/Vol] 494 mg/dL 74-106 [facility] Comment on above: Repeat TestMANAGEMEN T OF PATIENT CARE PER NURSING PROTOCOL Absolute lymphocyte countOrd ered By: Dr. Lomeli on 02-01-2022 Lymphocytes Auto (Unsp spec) [#/Vol] 1.73 10*3/uL 0.83-4.51 [facility] Basophil percentageOrdered B y: Dr. Aguayo on 02-01-2022 Basophil percentage 2.6 mg/dL 2.5-4.9 [facility] Bilirubin [Mass/Vol] 0.30 mg/dL 0.20-1.00 [facility] Comment on above: For patients on eltr ombopag therapy, use of Dimension [place] TBIL is not recommended. Protein [Mass/Vol] 6.2 g/dL 6.4-8.2 [facility] Basophil percentageOrdered B y: Dr. Lomeli on 02-01-2022 Chloride [Moles/Vol] 107 mmol/L 98-107 [facility] Potassium [Moles/Vol] 3.1 mmol/L 3.5-5.1 [facility] Sodium [Moles/Vol] 144 mmol/L 136-145 [facility] Basophils/100 WBC (Bld) 1.6 % 0-1 [facility] Eosinophils/100 WBC (Bld) 0.4 % 0-5 [facility] Neutrophils (Bld) [#/Vol] 2.9 10*3/uL 2.0-7.7 [facility] Neutrophils/100 WBC (Bld) 55.5 % 47-70 [facility] WBC (Bld) [#/Vol] 5.2 10*3/uL 4.4-11.0 [facility] Basophil percentageon 2021 Glucose [Mass/Vol] 256 mg/dL 74-106 [facility] Work Phone: Comment on above: Glucose result great er than or equal to 200 mg/dLsuggests DIABETES MELLITUS per A.D.A. criteria. Blood erythrocytes count (nu mber/volume)Ordered By: Dr. Lomeli on 02-01-2022 RBC (Bld) [#/Vol] 3.96 10*6/uL 4.6-6.2 [facility] Blood hemoglobin measurement (mass/volume)Ordered By: Dr. Lomeli on 02-01-2022 Hemoglobin (Bld) [Mass/Vol] 14.2 g/dL 13.0-16.5 [facility] Blood lymphocytes/100 leukoc ytesOrdered By: Dr. Lomeli on 02-01-2022 Lymphocytes/100 WBC (Bld) 33.6 % 19-41 [facility] Blood monocytes/100 leukocyt esOrdered By: Dr. Lomeli on 02-01-2022 Monocytes/100 WBC (Bld) 8.5 % 0-10 [facility] Blood platelet mean volumeOr dered By: Dr. Lomeli on 02-01-2022 Platelet mean volume (Bld) [Entitic vol] 11.6 fL 6.2-12.0 [facility] Determination of erythrocyte mean corpuscular volume (MCV)Ordered By: Dr. Lomeli on 02-01-2022 MCV (RBC) [Entitic vol] 106.3 fL 80-94 [facility] Direct bilirubinOrdered By: Dr. Aguayo on 02-01-2022 Bilirubin.direct [Mass/Vol] 0.20 mg/dL 0.00-0.30 [facility] Hematocrit Auto (Bld) [Volum e fraction]Ordered By: Dr. Lomeli on 02-01-2022 Hematocrit (Bld) [Volume fraction] 42.1 % 40-54 [facility] Laboratory - Chemistry and C hemistry - challengeOrdered By: Dr. Aguayo on 02-01-2022 ALP [Catalytic activity/Vol] 164 U/L 45-117 [facility] ALT [Catalytic activity/Vol] 109 U/L 16-61 [facility] Globulin (S) [Mass/Vol] 3.2 g/dL 2.2-4.2 [facility] Magnesium [Mass/Vol] 2.0 mg/dL 1.6-2.6 [facility] Laboratory - Chemistry and C hemistry - challengeOrdered By: Dr. Lomeli on 02-01-2022 CO2 [Moles/Vol] 29.0 mmol/L 21.0-32.0 [facility] Lipase [Catalytic activity/Vol] 21 U/L 73-393 [facility] Urea nitrogen/Creatinine [Mass ratio] 4.6 mg/mg 10-20 [facility] Laboratory - Hematology and Cell countsOrdered By: Dr. Lomeli on 02-01-2022 Erythrocyte distribution width (RBC) [Entitic vol] 52.8 fL 35.1-43.9 [facility] Erythrocyte distribution width (RBC) [Ratio] 13.3 % 11.6-14.6 [facility] Immature granulocytes/100 WBC (Bld) 0.400 % 0.0-0.9 [facility] Comment on above: IG% - Immature Granu locytes (promyelocytes, myelocytes and metamyelocytes) > 1% indicates that a LEFT SHIFT is Present. MCH (RBC) [Entitic mass] 35.9 pg 27.0-32.0 [facility] Nucleated RBC/100 WBC (Bld) [Ratio] 0 % 0-5 [facility] Auto (RBC) [Mass/Vol]Or dered By: Dr. Lomeli on 02-01-2022 MCHC (RBC) [Mass/Vol] 33.7 g/dL 32-36 [facility] No Panel InformationOrdered By: Dr. Lomeli on 02-01-2022 Troponin I High Sensitivity 22 pg/mL 3.0-78.0 [facility] Comment on above: Please Note: New Kelly t Units and Gender Specific Reference Ranges. For more information see Policy Stat Procedure [place] High Sensitivity Troponin (TNIH) and attachments. Estimated Creatinine Clearance Calc 60.20 ml/min [facility] Estimated GFR (MDRD) Amer 72 mL/min >60 [facility] Comment on above: GFR Calc Estimated GFR (MDRD) Non-Af Amer 59 mL/min >60 [facility] Comment on above: Non- GFR Calc No Panel Informationon 02-01 Troponin I High Sensitivity 22 pg/mL 3.0-78.0 [facility] Work Phone: Comment on above: Please Note: New Kelly t Units and Gender Specific Reference Ranges. For more information see Policy Stat Procedure [place] High Sensitivity Troponin (TNIH) and attachments. Platelets bldOrdered By: Dr. Lomeli on 02-01-2022 Platelets (Bld) [#/Vol] 206 10*3/uL 150-450 [facility] Serum or plasma albumin luciana urement (mass/volume)Ordered By: Dr. Aguayo on 02-01-2022 Albumin [Mass/Vol] 3.0 g/dL 3.2-5.0 [facility] Serum or plasma calcium luciana urement (mass/volume)Ordered By: Dr. Lomeli on 02-01-2022 Calcium [Mass/Vol] 8.3 mg/dL 8.5-10.1 [facility] Serum or plasma creatinine m easurement (mass/volume)Ordered By: Dr. Lomeli on 02-01-2022 Creatinine [Mass/Vol] 1.31 mg/dL 0.70-1.30 [facility] Comment on above: The validity of the calculated GFR & GFRAA in patients over 70 years has not been determined. Clinical correlation is essential. Serum or plasma urea nitroge n measurement (mass/volume)Ordered By: Dr. Lomeli on 02-01-2022 Urea nitrogen [Mass/Vol] 6 mg/dL 7-18 [facility] Thin prep Papanicolaou smear with manual screeningOrdered By: Dr. Aguayo on 02-01-2022 Thin prep Papanicolaou smear with manual screening 239 U/L 15-37 [facility] Thin prep Papanicolaou smear with manual screeningOrdered By: Dr. Lomeli on 02-01-2022 Thin prep Papanicolaou smear with manual screening 8 5-15 [facility] LABORATORYOrdered By: Amanda Ibrahim on 12-31-2021 HbA1c (Bld) [Mass fraction] 7.9 % [facility] Work Phone: Lab Performing Location [facility] Work Phone: Glucose Glucometer (BldC) [M ass/Vol]on 11-14-2021 Glucose [Mass/Vol] 270 mg/dL 74-106 [facility] Work Phone: Comment on above: MANAGEMENT OF PATIEN T CARE PER NURSING PROTOCOL Absolute lymphocyte counton 11-11-2021 Lymphocytes Auto (Unsp spec) [#/Vol] 1.48 10*3/uL 0.83-4.51 [facility] Work Phone: Basophil percentageon 2021 Basophil percentage 3.4 mg/dL 2.5-4.9 [facility] Work Phone: Basophils/100 WBC (Bld) 0.6 % 0-1 [facility] Work Phone: Bilirubin [Mass/Vol] 0.60 mg/dL 0.20-1.00 [facility] Work Phone: Comment on above: For patients on eltr ombopag therapy, use of Dimension [place] TBIL is not recommended. Chloride [Moles/Vol] 98 mmol/L 98-107 [facility] Work Phone: Eosinophils/100 WBC (Bld) 0.4 % 0-5 [facility] Work Phone: Glucose [Mass/Vol] 284 mg/dL 74-106 [facility] Work Phone: Comment on above: Glucose result great er than or equal to 200 mg/dLsuggests DIABETES MELLITUS per A.D.A. criteria. Neutrophils (Bld) [#/Vol] 2.9 10*3/uL 2.0-7.7 [facility] Work Phone: Neutrophils/100 WBC (Bld) 57.5 % 47-70 [facility] Work Phone: Potassium [Moles/Vol] 3.5 mmol/L 3.5-5.1 [facility] Work Phone: Protein [Mass/Vol] 5.1 g/dL 6.4-8.2 [facility] Work Phone: Sodium [Moles/Vol] 137 mmol/L 136-145 [facility] Work Phone: WBC (Bld) [#/Vol] 5.0 10*3/uL 4.4-11.0 [facility] Work Phone: Blood erythrocytes count (nu mber/volume)on 11-11-2021 RBC (Bld) [#/Vol] 3.00 10*6/uL 4.6-6.2 [facility] Work Phone: Blood hemoglobin measurement (mass/volume)on 11-11-2021 Hemoglobin (Bld) [Mass/Vol] 11.3 g/dL 13.0-16.5 [facility] Work Phone: Blood lymphocytes/100 leukoc yteson 11-11-2021 Lymphocytes/100 WBC (Bld) 29.7 % 19-41 [facility] Work Phone: Blood monocytes/100 leukocyt eson 11-11-2021 Monocytes/100 WBC (Bld) 11.2 % 0-10 [facility] Work Phone: [phone] Blood platelet adequacy dete ction by light microscopyon 11-11-2021 Platelets LM Ql (Bld) ADEQUATE ADEQ [facility] Work Phone: [phone] Blood platelet mean volumeon 11-11-2021 Platelet mean volume (Bld) [Entitic vol] 10.7 fL 6.2-12.0 [facility] Work Phone: [phone] Determination of erythrocyte mean corpuscular volume (MCV)on 11-11-2021 MCV (RBC) [Entitic vol] 110.7 fL 80-94 [facility] Work Phone: [phone] Direct bilirubinon Bilirubin.direct [Mass/Vol] 0.33 mg/dL 0.00-0.30 [facility] Work Phone: [phone] Hematocrit Auto (Bld) [Volum e fraction]on 11-11-2021 Hematocrit (Bld) [Volume fraction] 33.2 % 40-54 [facility] Work Phone: [phone] Laboratory - Chemistry and C hemistry - challengeon 11-11-2021 ALP [Catalytic activity/Vol] 133 U/L 45-117 [facility] Work Phone: [phone] ALT [Catalytic activity/Vol] 55 U/L 16-61 [facility] Work Phone: [phone] CO2 [Moles/Vol] 28.0 mmol/L 21.0-32.0 [facility] Work Phone: [phone] Globulin (S) [Mass/Vol] 2.9 g/dL 2.2-4.2 [facility] Work Phone: [phone] Magnesium [Mass/Vol] 1.8 mg/dL 1.6-2.6 [facility] Work Phone: [phone] Urea nitrogen/Creatinine [Mass ratio] 7.8 mg/mg 10-20 [facility] Work Phone: [phone] Laboratory - Drug toxicology on 11-11-2021 Amphetamines Ql (U) Negative <1000 ng/mL [facility] Work Phone: [phone] Benzodiazepines Ql (U) Negative < 200 ng/mL [facility] Work Phone: [phone] Cannabinoids Screen Ql (U) Negative < 50 ng/mL [facility] Work Phone: [phone] Cocaine Ql (U) Negative < 300 ng/mL [facility] Work Phone: [phone] Opiates Ql (U) Negative < 300 ng/mL [facility] Work Phone: [phone] Laboratory - Hematology and Cell countson 11-11-2021 Anisocytosis Ql (Bld) 1+ [facility] Work Phone: [phone] Erythrocyte distribution width (RBC) [Entitic vol] 71.1 fL 35.1-43.9 [facility] Work Phone: [phone] Erythrocyte distribution width (RBC) [Ratio] 17.3 % 11.6-14.6 [facility] Work Phone: [phone] Immature granulocytes/100 WBC (Bld) 0.600 % 0.0-0.9 [facility] Work Phone: [phone] Comment on above: IG% - Immature Granu locytes (promyelocytes, myelocytes and metamyelocytes) > 1% indicates that a LEFT SHIFT is Present. MCH (RBC) [Entitic mass] 37.7 pg 27.0-32.0 [facility] Work Phone: Nucleated RBC/100 WBC (Bld) [Ratio] 0 % 0-5 [facility] Work Phone: [phone] MCHC Auto (RBC) [Mass/Vol]on 11-11-2021 MCHC (RBC) [Mass/Vol] 34.0 g/dL 32-36 [facility] Work Phone: Macrocytes detectionon 11-11 Macrocytes Ql (Bld) 1+ [facility] Work Phone: [phone] Panel Informationon 11-11 MDMA (Ecstasy) Screen Negative < 500 ng/mL [facility] Work Phone: [phone] Urine Barbiturates Screen Positive < 200 ng/mL [facility] Work Phone: Urine Drug Screen Comment [facility] Work Phone: Comment on above: [...] Methadone Screen Negative < 300 ng/mL [facility] Work Phone: Estimated Creatinine Clearance Calc 63.79 ml/min [facility] Work Phone: Estimated GFR (MDRD) Amer 74 mL/min >60 [facility] Work Phone: Comment on above: GFR Calc Estimated GFR (MDRD) Non-Af Amer 61 mL/min >60 [facility] Work Phone: Comment on above: Non- GFR Calc Ethyl Alcohol Level 118.0 mg/dL [facility] Work Phone: Comment on above: The serum:whole bloo d ethanol ratio is approximately 1.14and varies slightly with hematocrit. Medical Alcohol reference interval and critical value innon-tolerant individuals; 50 - 100 Impairment 100 Intoxication 100 - 250 Severe Poisoning 250 - 400 Deep/possible fatal coma Platelets bldon 11-11-2021 Platelets (Bld) [#/Vol] 241 10*3/uL 150-450 [facility] Work Phone: [phone] Serum or plasma albumin luciana urement (mass/volume)on 11-11-2021 Albumin [Mass/Vol] 2.2 g/dL 3.2-5.0 [facility] Work Phone: [phone] Serum or plasma calcium luciana urement (mass/volume)on 11-11-2021 Calcium [Mass/Vol] 7.9 mg/dL 8.5-10.1 [facility] Work Phone: Serum or plasma creatinine m easurement (mass/volume)on 11-11-2021 Creatinine [Mass/Vol] 1.28 mg/dL 0.70-1.30 [facility] Work Phone: Comment on above: The validity of the calculated GFR & GFRAA in patients over 70 years has not been determined. Clinical correlation is essential. Serum or plasma urea nitroge n measurement (mass/volume)on 11-11-2021 Urea nitrogen [Mass/Vol] 10 mg/dL 7-18 [facility] Work Phone: Thin prep Papanicolaou smear with manual screeningon 11-11-2021 Thin prep Papanicolaou smear with manual screening 80 U/L 15-37 [facility] Work Phone: Thin prep Papanicolaou smear with manual screening 11 5-15 [facility] Work Phone: Urine phencyclidine (PCP) de tectionon 11-11-2021 Phencyclidine Ql (U) Negative < 25 ng/mL [facility] Work Phone: Basophil percentageon 2021 Chloride [Moles/Vol] 106 mmol/L 98-107 [facility] Work Phone: Glucose [Mass/Vol] 84 mg/dL 74-106 [facility] Work Phone: Potassium [Moles/Vol] 4.8 mmol/L 3.5-5.1 [facility] Work Phone: Sodium [Moles/Vol] 140 mmol/L 136-145 [facility] Work Phone: Glucose Glucometer (BldC) [M ass/Vol]on 11-08-2021 Glucose [Mass/Vol] 141 mg/dL 74-106 [facility] Work Phone: Comment on above: MANAGEMENT OF PATIEN T CARE PER NURSING PROTOCOL Laboratory - Chemistry and C hemistry - challengeon 11-08-2021 CO2 [Moles/Vol] 30.0 mmol/L 21.0-32.0 [facility] Work Phone: Urea nitrogen/Creatinine [Mass ratio] 8.0 mg/mg 10-20 [facility] Work Phone: No Panel Informationon 11-08 Estimated Creatinine Clearance Calc 88.72 ml/min [facility] Work Phone: Estimated GFR (MDRD) Amer 114 mL/min >60 [facility] Work Phone: [phone] Comment on above: GFR Calc Estimated GFR (MDRD) Non-Af Amer 94 mL/min >60 [facility] Work Phone: Comment on above: Non- GFR Calc Serum or plasma calcium luciana urement (mass/volume)on 11-08-2021 Calcium [Mass/Vol] 7.7 mg/dL 8.5-10.1 [facility] Work Phone: Serum or plasma creatinine m easurement (mass/volume)on 11-08-2021 Creatinine [Mass/Vol] 0.88 mg/dL 0.70-1.30 [facility] Work Phone: Comment on above: The validity of the calculated GFR & GFRAA in patients over 70 years has not been determined. Clinical correlation is essential. Serum or plasma urea nitroge n measurement (mass/volume)on 11-08-2021 Urea nitrogen [Mass/Vol] 7 mg/dL 7-18 [facility] Work Phone: Thin prep Papanicolaou smear with manual screeningon 11-08-2021 Thin prep Papanicolaou smear with manual screening 4 5-15 [facility] Work Phone: Laboratory - Chemistry and C hemistry - challengeon 11-06-2021 Magnesium [Mass/Vol] 2.6 mg/dL 1.6-2.6 [facility] Work Phone: Comment on above: Slight Hemolysis, Re sult may be falsely increased. Absolute lymphocyte counton 11-05-2021 Lymphocytes Auto (Unsp spec) [#/Vol] 1.65 10*3/uL 0.83-4.51 [facility] Work Phone: Basophil percentageon 2021 Bilirubin [Mass/Vol] 0.80 mg/dL 0.20-1.00 [facility] Work Phone: Comment on above: For patients on eltr ombopag therapy, use of Dimension [place] TBIL is not recommended. Chloride [Moles/Vol] 92 mmol/L 98-107 [facility] Work Phone: Glucose [Mass/Vol] 310 mg/dL 74-106 [facility] Work Phone: Comment on above: Glucose result great er than or equal to 200 mg/dLsuggests DIABETES MELLITUS per A.D.A. criteria. Potassium [Moles/Vol] 2.5 mmol/L 3.5-5.1 [facility] Work Phone: Comment on above: Moderate Hemolysis, Result may be falsely increased. Critical Result(s) Called at: 17:34:59 11/05/2021 by: Carlos Minor to Galileo Short RN (ER). Results read back by same. Protein [Mass/Vol] 5.6 g/dL 6.4-8.2 [facility] Work Phone: Sodium [Moles/Vol] 138 mmol/L 136-145 [facility] Work Phone: Basophils/100 WBC (Bld) 1.0 % 0-1 [facility] Work Phone: Eosinophils/100 WBC (Bld) 0.5 % 0-5 [facility] Work Phone: Neutrophils (Bld) [#/Vol] 3.4 10*3/uL 2.0-7.7 [facility] Work Phone: Neutrophils/100 WBC (Bld) 56.9 % 47-70 [facility] Work Phone: WBC (Bld) [#/Vol] 5.9 10*3/uL 4.4-11.0 [facility] Work Phone: Blood erythrocytes count (nu mber/volume)on 11-05-2021 RBC (Bld) [#/Vol] 3.22 10*6/uL 4.6-6.2 [facility]: [phone] Blood hemoglobin measurement (mass/volume)on 11-05-2021 Hemoglobin (Bld) [Mass/Vol] 12.0 g/dL 13.0-16.5 [facility] Work Phone: [phone] Blood lymphocytes/100 leukoc yteson 11-05-2021 Lymphocytes/100 WBC (Bld) 27.9 % 19-41 [facility] Work Phone: [phone] Blood monocytes/100 leukocyt eson 11-05-2021 Monocytes/100 WBC (Bld) 13.4 % 0-10 [facility] Work Phone: [phone] Blood platelet mean volumeon 11-05-2021 Platelet mean volume (Bld) [Entitic vol] 11.5 fL 6.2-12.0 [facility] Work Phone: [phone] Determination of erythrocyte mean corpuscular volume (MCV)on 11-05-2021 MCV (RBC) [Entitic vol] 107.8 fL 80-94 [facility] Work Phone: [phone] Hematocrit Auto (Bld) [Volum e fraction]on 11-05-2021 Hematocrit (Bld) [Volume fraction] 34.7 % 40-54 [facility] Work Phone: Laboratory - Chemistry and C hemistry - challengeon 11-05-2021 ALP [Catalytic activity/Vol] 150 U/L 45-117 [facility] Work Phone: [phone] ALT [Catalytic activity/Vol] 78 U/L 16-61 [facility] Work Phone: [phone] CO2 [Moles/Vol] 27.0 mmol/L 21.0-32.0 [facility] Work Phone: [phone] Globulin (S) [Mass/Vol] 3.3 g/dL 2.2-4.2 [facility] Work Phone: [phone] Lipase [Catalytic activity/Vol] 11 U/L 73-393 [facility] Work Phone: [phone] Urea nitrogen/Creatinine [Mass ratio] 6.1 mg/mg 10-20 [facility] Work Phone: [phone] Laboratory - Drug toxicology on 11-05-2021 Amphetamines Ql (U) Negative <1000 ng/mL [facility] Work Phone: [phone] Benzodiazepines Ql (U) Negative < 200 ng/mL [facility] Work Phone: [phone] Cannabinoids Screen Ql (U) Negative < 50 ng/mL [facility] Work Phone: [phone] Cocaine Ql (U) Negative < 300 ng/mL [facility] Work Phone: [phone] Opiates Ql (U) Negative < 300 ng/mL [facility] Work Phone: [phone] Laboratory - Hematology and Cell countson 11-05-2021 Erythrocyte distribution width (RBC) [Entitic vol] 62.5 fL 35.1-43.9 [facility] Work Phone: [phone] Erythrocyte distribution width (RBC) [Ratio] 15.7 % 11.6-14.6 [facility] Work Phone: [phone] Immature granulocytes/100 WBC (Bld) 0.300 % 0.0-0.9 [facility] Work Phone: [phone] Comment on above: IG% - Immature Granu locytes (promyelocytes, myelocytes and metamyelocytes) > 1% indicates that a LEFT SHIFT is Present. MCH (RBC) [Entitic mass] 37.3 pg 27.0-32.0 [facility] Work Phone: [phone] Nucleated RBC/100 WBC (Bld) [Ratio] 0 % 0-5 [facility] Work Phone: [phone] MCHC Auto (RBC) [Mass/Vol]on 11-05-2021 MCHC (RBC) [Mass/Vol] 34.6 g/dL 32-36 [facility] Work Phone: [phone] Panel Informationon 11-05 MDMA (Ecstasy) Screen Negative < 500 ng/mL [facility] Work Phone: Urine Barbiturates Screen Negative < 200 ng/mL [facility] Work Phone: [phone] Urine Drug Screen Comment [facility] Work Phone: Comment on above: [...] Methadone Screen Negative < 300 ng/mL [facility] Work Phone: Estimated Creatinine Clearance Calc 73.66 ml/min [facility] Work Phone: [phone] Estimated GFR (MDRD) Amer 84 mL/min >60 [facility] Work Phone: [phone] Comment on above: GFR Calc Estimated GFR (MDRD) Non-Af Amer 69 mL/min >60 [facility] Work Phone: Comment on above: Non- GFR Calc Ethyl Alcohol Level 253.0 mg/dL [facility] Work Phone: Comment on above: The serum:whole bloo d ethanol ratio is approximately 1.14and varies slightly with hematocrit. Medical Alcohol reference interval and critical value innon-tolerant individuals; 50 - 100 Impairment 100 Intoxication 100 - 250 Severe Poisoning 250 - 400 Deep/possible fatal coma Platelets bldon 11-05-2021 Platelets (Bld) [#/Vol] 215 10*3/uL 150-450 [facility] Work Phone: [phone] Serum or plasma albumin luciana urement (mass/volume)on 11-05-2021 Albumin [Mass/Vol] 2.3 g/dL 3.2-5.0 [facility] Work Phone: [phone] Serum or plasma albumin/glob ulin mass ratioon 11-05-2021 Albumin/Globulin [Mass ratio] 0.7 {ratio} 0.9-2.4 [facility] Work Phone: [phone] Serum or plasma calcium luciana urement (mass/volume)on 11-05-2021 Calcium [Mass/Vol] 7.8 mg/dL 8.5-10.1 [facility] Work Phone: [phone] Serum or plasma creatinine m easurement (mass/volume)on 11-05-2021 Creatinine [Mass/Vol] 1.15 mg/dL 0.70-1.30 [facility] Work Phone: [phone] Comment on above: The validity of the calculated GFR & GFRAA in patients over 70 years has not been determined. Clinical correlation is essential. Serum or plasma urea nitroge n measurement (mass/volume)on 11-05-2021 Urea nitrogen [Mass/Vol] 7 mg/dL 7-18 [facility] Work Phone: [phone] Thin prep Papanicolaou smear with manual screeningon 11-05-2021 Thin prep Papanicolaou smear with manual screening 163 U/L 15-37 [facility] Work Phone: [phone] Comment on above: Moderate Hemolysis, Result may be falsely increased. Thin prep Papanicolaou smear with manual screening 19 5-15 [facility] Work Phone: [phone] Urine phencyclidine (PCP) de tectionon 11-05-2021 Phencyclidine Ql (U) Negative < 25 ng/mL [facility] Work Phone: [phone] Absolute lymphocyte counton 10-06-2021 Lymphocytes Auto (Unsp spec) [#/Vol] 1.72 10*3/uL 0.83-4.51 [facility] Work Phone: [phone] Basophil percentageon 2021 Basophils/100 WBC (Bld) 2.1 % 0-1 [facility] Work Phone: [phone] Chloride [Moles/Vol] 108 mmol/L 98-107 [facility] Work Phone: Eosinophils/100 WBC (Bld) 2.6 % 0-5 [facility] Work Phone: Glucose [Mass/Vol] 236 mg/dL 74-106 [facility] Work Phone: Comment on above: Glucose result great er than or equal to 200 mg/dLsuggests DIABETES MELLITUS per A.D.A. criteria. Neutrophils (Bld) [#/Vol] 1.7 10*3/uL 2.0-7.7 [facility] Work Phone: Neutrophils/100 WBC (Bld) 40.4 % 47-70 [facility] Work Phone: Potassium [Moles/Vol] 3.4 mmol/L 3.5-5.1 [facility] Work Phone: Sodium [Moles/Vol] 144 mmol/L 136-145 [facility] Work Phone: WBC (Bld) [#/Vol] 4.3 10*3/uL 4.4-11.0 [facility] Work Phone: Blood erythrocytes count (nu mber/volume)on 10-06-2021 RBC (Bld) [#/Vol] 3.85 10*6/uL 4.6-6.2 [facility] Work Phone: Blood hemoglobin measurement (mass/volume)on 10-06-2021 Hemoglobin (Bld) [Mass/Vol] 13.6 g/dL 13.0-16.5 [facility] Work Phone: Blood lymphocytes/100 leukoc yteson 10-06-2021 Lymphocytes/100 WBC (Bld) 40.5 % 19-41 [facility] Work Phone: Blood monocytes/100 leukocyt eson 10-06-2021 Monocytes/100 WBC (Bld) 13.9 % 0-10 [facility] Work Phone: Blood platelet mean volumeon 10-06-2021 Platelet mean volume (Bld) [Entitic vol] 9.6 fL 6.2-12.0 [facility] Work [phone] Determination of erythrocyte mean corpuscular volume (MCV)on 10-06-2021 MCV (RBC) [Entitic vol] 101.0 fL 80-94 [facility] Work Phone: [phone] Glucose Glucometer (BldC) [M ass/Vol]on 10-06-2021 Glucose [Mass/Vol] 211 mg/dL 74-106 [facility] Work Phone: [phone] Comment on above: MANAGEMENT OF PATIEN T CARE PER NURSING PROTOCOL Hematocrit Auto (Bld) [Volum e fraction]on 10-06-2021 Hematocrit (Bld) [Volume fraction] 38.9 % 40-54 [facility] Work Phone: Laboratory - Chemistry and C hemistry - challengeon 10-06-2021 CO2 [Moles/Vol] 28.0 mmol/L 21.0-32.0 [facility] Work Phone: [phone] Urea nitrogen/Creatinine [Mass ratio] 4.3 mg/mg 10-20 [facility] Work Phone: [phone] Laboratory - Drug toxicology on 10-06-2021 Amphetamines Ql (U) Negative <1000 ng/mL [facility] Work Phone: Benzodiazepines Ql (U) Negative < 200 ng/mL [facility] Work Phone: [phone] Cannabinoids Screen Ql (U) Negative < 50 ng/mL [facility] Work Phone: [phone] Cocaine Ql (U) Negative < 300 ng/mL [facility] Work Phone: [phone] Opiates Ql (U) Negative < 300 ng/mL [facility] Work Phone: [phone] Laboratory - Hematology and Cell countson 10-06-2021 Erythrocyte distribution width (RBC) [Entitic vol] 52.8 fL 35.1-43.9 [facility] Work Phone: [phone] Erythrocyte distribution width (RBC) [Ratio] 14.3 % 11.6-14.6 [facility] Work Phone: [phone] Immature granulocytes/100 WBC (Bld) 0.500 % 0.0-0.9 [facility] Work Phone: [phone] Comment on above: IG% - Immature Granu locytes (promyelocytes, myelocytes and metamyelocytes) > 1% indicates that a LEFT SHIFT is Present. MCH (RBC) [Entitic mass] 35.3 pg 27.0-32.0 [facility] Work Phone: [phone] Nucleated RBC/100 WBC (Bld) [Ratio] 0 % 0-5 [facility] Work Phone: [phone] MCHC Auto (RBC) [Mass/Vol]on 10-06-2021 MCHC (RBC) [Mass/Vol] 35.0 g/dL 32-36 [facility] Work Phone: [phone] Panel Informationon 10-06 Ethyl Alcohol Level 107.0 mg/dL [facility] Work Phone: [phone] Comment on above: The serum:whole bloo d ethanol ratio is approximately 1.14and varies slightly with hematocrit. Medical Alcohol reference interval and critical value innon-tolerant individuals; 50 - 100 Impairment 100 Intoxication 100 - 250 Severe Poisoning 250 - 400 Deep/possible fatal coma Estimated Creatinine Clearance Calc 63.62 ml/min [facility] Work Phone: [phone] Estimated GFR (MDRD) Amer 83 mL/min >60 [facility] Work Phone: [phone] Comment on above: GFR Calc Estimated GFR (MDRD) Non-Af Amer 68 mL/min >60 [facility] Work Phone: [phone] Comment on above: Non- GFR Calc MDMA (Ecstasy) Screen Negative < 500 ng/mL [facility] Work Phone: [phone] Urine Barbiturates Screen Negative < 200 ng/mL [facility] Work Phone: [phone] Urine Drug Screen Comment [facility] Work Phone: [phone] Comment on above: CONFIRMATORY TESTING FOR ALL [...] Methadone Screen Negative < 300 ng/mL [facility] Work Phone: Platelets bldon 10-06-2021 Platelets (Bld) [#/Vol] 232 10*3/uL 150-450 [facility] Work Phone: Serum or plasma calcium luciana urement (mass/volume)on 10-06-2021 Calcium [Mass/Vol] 8.5 mg/dL 8.5-10.1 [facility] Work Phone: Serum or plasma creatinine m easurement (mass/volume)on 10-06-2021 Creatinine [Mass/Vol] 1.16 mg/dL 0.70-1.30 [facility] Work Phone: Comment on above: The validity of the calculated GFR & GFRAA in patients over 70 years has not been determined. Clinical correlation is essential. Serum or plasma urea nitroge n measurement (mass/volume)on 10-06-2021 Urea nitrogen [Mass/Vol] 5 mg/dL 7-18 [facility] Work Phone: Thin prep Papanicolaou smear with manual screeningon 10-06-2021 Thin prep Papanicolaou smear with manual screening 8 5-15 [facility] Work Phone: Urine phencyclidine (PCP) de tectionon 10-06-2021 Phencyclidine Ql (U) Negative < 25 ng/mL [facility] Work Phone: Absolute lymphocyte counton 09-30-2021 Lymphocytes Auto (Unsp spec) [#/Vol] 1.63 10*3/uL 0.83-4.51 [facility] Work Phone: Basophil percentageon 2021 Basophils/100 WBC (Bld) 0.7 % 0-1 [facility] Work Phone: Bilirubin [Mass/Vol] 0.40 mg/dL 0.20-1.00 [facility] Work Phone: Comment on above: For patients on eltr ombopag therapy, use of Dimension [place] TBIL is not recommended. Chloride [Moles/Vol] 97 mmol/L 98-107 [facility] Work Phone: Eosinophils/100 WBC (Bld) 0.4 % 0-5 [facility] Work Phone: Glucose [Mass/Vol] 221 mg/dL 74-106 [facility] Work Phone: Comment on above: Glucose result great er than or equal to 200 mg/dLsuggests DIABETES MELLITUS per A.D.A. criteria. Neutrophils (Bld) [#/Vol] 5.1 10*3/uL 2.0-7.7 [facility] Work Phone: Neutrophils/100 WBC (Bld) 69.1 % 47-70 [facility] Work Phone: Potassium [Moles/Vol] 3.2 mmol/L 3.5-5.1 [facility] Work Phone: Protein [Mass/Vol] 6.1 g/dL 6.4-8.2 [facility] Work Phone: Sodium [Moles/Vol] 135 mmol/L 136-145 [facility] Work Phone: WBC (Bld) [#/Vol] 7.4 10*3/uL 4.4-11.0 [facility] Work Phone: Blood erythrocytes count (nu mber/volume)on 09-30-2021 RBC (Bld) [#/Vol] 3.92 10*6/uL 4.6-6.2 [facility] Work Phone: Blood hemoglobin measurement (mass/volume)on 09-30-2021 Hemoglobin (Bld) [Mass/Vol] 13.7 g/dL 13.0-16.5 [facility] Work Phone: Blood lymphocytes/100 leukoc yteson 09-30-2021 Lymphocytes/100 WBC (Bld) 22.0 % 19-41 [facility] Work Phone: Blood monocytes/100 leukocyt eson 09-30-2021 Monocytes/100 WBC (Bld) 7.3 % 0-10 [facility] Work Phone: Blood platelet mean volumeon 09-30-2021 Platelet mean volume (Bld) [Entitic vol] 10.4 fL 6.2-12.0 [facility] Work Phone: Determination of erythrocyte mean corpuscular volume (MCV)on 09-30-2021 MCV (RBC) [Entitic vol] 100.3 fL 80-94 [facility] Work Phone: Hematocrit Auto (Bld) [Volum e fraction]on 09-30-2021 Hematocrit (Bld) [Volume fraction] 39.3 % 40-54 [facility] Work Phone: Laboratory - Chemistry and C hemistry - challengeon 09-30-2021 ALP [Catalytic activity/Vol] 128 U/L 45-117 [facility] Work Phone: ALT [Catalytic activity/Vol] 72 U/L 16-61 [facility] Work Phone: [phone] CO2 [Moles/Vol] 24.0 mmol/L 21.0-32.0 [facility] Work Phone: [phone] Globulin (S) [Mass/Vol] 3.3 g/dL 2.2-4.2 [facility] Work Phone: Urea nitrogen/Creatinine [Mass ratio] 8.7 mg/mg 10-20 [facility] Work Phone: Laboratory - Hematology and Cell countson 09-30-2021 Erythrocyte distribution width (RBC) [Entitic vol] 49.8 fL 35.1-43.9 [facility] Work Phone: Erythrocyte distribution width (RBC) [Ratio] 13.5 % 11.6-14.6 [facility] Work Phone: Immature granulocytes/100 WBC (Bld) 0.500 % 0.0-0.9 [facility] Work Phone: Comment on above: IG% - Immature Granu locytes (promyelocytes, myelocytes and metamyelocytes) > 1% indicates that a LEFT SHIFT is Present. MCH (RBC) [Entitic mass] 34.9 pg 27.0-32.0 [facility] Work Phone: Nucleated RBC/100 WBC (Bld) [Ratio] 0 % 0-5 [facility] Work Phone: MCHC Auto (RBC) [Mass/Vol]on 09-30-2021 MCHC (RBC) [Mass/Vol] 34.9 g/dL 32-36 [facility] Work Phone: No Panel Informationon 09-30 Estimated Creatinine Clearance Calc 55.84 ml/min [facility] Work Phone: Estimated GFR (MDRD) Amer 68 mL/min >60 [facility] Work Phone: Comment on above: GFR Calc Estimated GFR (MDRD) Non-Af Amer 56 mL/min >60 [facility] Work Phone: Comment on above: Non- GFR Calc Ethyl Alcohol Level 141.0 mg/dL [facility] Work Phone: Comment on above: The serum:whole bloo d ethanol ratio is approximately 1.14and varies slightly with hematocrit. Medical Alcohol reference interval and critical value innon-tolerant individuals; 50 - 100 Impairment 100 Intoxication 100 - 250 Severe Poisoning 250 - 400 Deep/possible fatal coma Troponin I High Sensitivity 34 pg/mL 3.0-78.0 [facility] Work Phone: Comment on above: Please Note: New Kelly t Units and Gender Specific Reference Ranges. For more information see Policy Stat Procedure [place] High Sensitivity Troponin (TNIH) and attachments. Platelets bldon 09-30-2021 Platelets (Bld) [#/Vol] 191 10*3/uL 150-450 [facility] Work Phone: Serum or plasma albumin luciana urement (mass/volume)on 09-30-2021 Albumin [Mass/Vol] 2.8 g/dL 3.2-5.0 [facility] Work Phone: Serum or plasma albumin/glob ulin mass ratioon 09-30-2021 Albumin/Globulin [Mass ratio] 0.8 {ratio} 0.9-2.4 [facility] Work Phone: [phone] Serum or plasma calcium luciana urement (mass/volume)on 09-30-2021 Calcium [Mass/Vol] 8.4 mg/dL 8.5-10.1 [facility] Work Phone: Serum or plasma creatinine m easurement (mass/volume)on 09-30-2021 Creatinine [Mass/Vol] 1.38 mg/dL 0.70-1.30 [facility] Work Phone: Comment on above: The validity of the calculated GFR & GFRAA in patients over 70 years has not been determined. Clinical correlation is essential. Serum or plasma urea nitroge n measurement (mass/volume)on 09-30-2021 Urea nitrogen [Mass/Vol] 12 mg/dL 7-18 [facility] Work Phone: [phone] Thin prep Papanicolaou smear with manual screeningon 09-30-2021 Thin prep Papanicolaou smear with manual screening 98 U/L 15-37 [facility] Work Phone: [phone] Thin prep Papanicolaou smear with manual screening 14 5-15 [facility] Work Phone: LABORATORYOrdered By: Ade [...] ass/Vol]on 06-01-2021 Glucose [Mass/Vol] 202 mg/dL 74-106 [facility] Work Phone: Comment on above: MANAGEMENT OF PATIEN T CARE PER NURSING PROTOCOL Absolute lymphocyte counton 05-29-2021 Lymphocytes Auto (Unsp spec) [#/Vol] 0.95 10*3/uL 0.83-4.51 [facility] Work Phone: Acetaminophen level (mass/vo lume)on 05-29-2021 Acetaminophen (Unsp spec) [Mass/Vol] < 2.0 ug/mL 10.0-30.0 [facility] Work Phone: Basophil percentageon 2021 Basophils/100 WBC (Bld) 1.1 % 0-1 [facility] Work Phone: Bilirubin [Mass/Vol] 0.20 mg/dL 0.20-1.00 [facility] Work Phone: Comment on above: For patients on eltr ombopag therapy, use of Dimension [place] TBIL is not recommended. Chloride [Moles/Vol] 102 mmol/L 98-107 [facility] Work Phone: Eosinophils/100 WBC (Bld) 0.9 % 0-5 [facility] Work Phone: Glucose [Mass/Vol] 323 mg/dL 74-106 [facility] Work Phone: Comment on above: Glucose result great er than or equal to 200 mg/dLsuggests DIABETES MELLITUS per A.D.A. criteria. Neutrophils (Bld) [#/Vol] 5.6 10*3/uL 2.0-7.7 [facility] Work Phone: Neutrophils/100 WBC (Bld) 76.3 % 47-70 [facility] Work Phone: Potassium [Moles/Vol] 3.8 mmol/L 3.5-5.1 [facility] Work Phone: Protein [Mass/Vol] 6.7 g/dL 6.4-8.2 [facility] Work Phone: Sodium [Moles/Vol] 141 mmol/L 136-145 [facility] Work Phone: WBC (Bld) [#/Vol] 7.4 10*3/uL 4.4-11.0 [facility] Work Phone: Blood erythrocytes count (nu mber/volume)on 05-29-2021 RBC (Bld) [#/Vol] 4.06 10*6/uL 4.6-6.2 [facility] Work Phone: Blood hemoglobin measurement (mass/volume)on 05-29-2021 Hemoglobin (Bld) [Mass/Vol] 13.0 g/dL 13.0-16.5 [facility] Work Phone: Blood lymphocytes/100 leukoc yteson 05-29-2021 Lymphocytes/100 WBC (Bld) 12.9 % 19-41 [facility] Work Phone: Blood monocytes/100 leukocyt eson 05-29-2021 Monocytes/100 WBC (Bld) 8.3 % 0-10 [facility] Work Phone: Blood platelet mean volumeon 05-29-2021 Platelet mean volume (Bld) [Entitic vol] 10.9 fL 6.2-12.0 [facility] Work Phone: Determination of erythrocyte mean corpuscular volume (MCV)on 05-29-2021 MCV (RBC) [Entitic vol] 94.3 fL 80-94 [facility] Work Phone: Direct bilirubinon 2 Bilirubin.direct [Mass/Vol] 0.12 mg/dL 0.00-0.30 [facility] Work Phone: Hematocrit Auto (Bld) [Volum e fraction]on 05-29-2021 Hematocrit (Bld) [Volume fraction] 38.3 % 40-54 [facility] Work Phone: Laboratory - Chemistry and C hemistry - challengeon 05-29-2021 ALP [Catalytic activity/Vol] 105 U/L 45-117 [facility] Work Phone: ALT [Catalytic activity/Vol] 23 U/L 16-61 [facility] Work Phone: CO2 [Moles/Vol] 29.0 mmol/L 21.0-32.0 [facility] Work Phone: Globulin (S) [Mass/Vol] 3.2 g/dL 2.2-4.2 [facility] Work Phone: Urea nitrogen/Creatinine [Mass ratio] 10.9 mg/mg 10-20 [facility] Work Phone: Laboratory - Drug toxicology on 05-29-2021 Amphetamines Ql (U) Negative [facility] Work Phone: Benzodiazepines Ql (U) Negative [facility] Work Phone: Cannabinoids Screen Ql (U) Negative [facility] Work Phone: Cocaine Ql (U) Negative [facility] Work Phone: Opiates Ql (U) Negative [facility] Work Phone: Laboratory - Hematology and Cell countson 05-29-2021 Erythrocyte distribution width (RBC) [Entitic vol] 48.4 fL 35.1-43.9 [facility] Work Phone: [phone] Erythrocyte distribution width (RBC) [Ratio] 13.9 % 11.6-14.6 [facility] Work Phone: [phone] Immature granulocytes/100 WBC (Bld) 0.500 % 0.0-0.9 [facility] Work Phone: [phone] Comment on above: IG% - Immature Granu locytes (promyelocytes, myelocytes and metamyelocytes) > 1% indicates that a LEFT SHIFT is Present. MCH (RBC) [Entitic mass] 32.0 pg 27.0-32.0 [facility] Work Phone: [phone] Nucleated RBC/100 WBC (Bld) [Ratio] 0 % 0-5 [facility] Work Phone: [phone] MCHC Auto (RBC) [Mass/Vol]on 05-29-2021 MCHC (RBC) [Mass/Vol] 33.9 g/dL 32-36 [facility] Work Phone: [phone] Panel Informationon 05-29 MDMA (Ecstasy) Screen Negative [facility] Work Phone: [phone] Urine Barbiturates Screen Negative [facility] Work Phone: [phone] Urine Drug Screen Comment [facility] Work Phone: [phone] Comment on above: CONFIRMATORY TESTING FOR ALL [...] USE TESTMNEMONIC: [facility] Urine Methadone Screen Negative [facility] Work Phone: [phone] Estimated Creatinine Clearance Calc 71.63 ml/min [facility] Work Phone: [phone] Estimated GFR (MDRD) Amer 81 mL/min >60 [facility] Work Phone: Comment on above: GFR Calc Estimated GFR (MDRD) Non-Af Amer 67 mL/min >60 [facility] Work Phone: Comment on above: Non- GFR Calc Ethyl Alcohol Level 46.0 mg/dL [facility] Work Phone: Comment on above: The serum:whole bloo d ethanol ratio is approximately 1.14and varies slightly with hematocrit. Medical Alcohol reference interval and critical value innon-tolerant individuals; 50 - 100 Impairment 100 Intoxication 100 - 250 Severe Poisoning 250 - 400 Deep/possible fatal coma Platelets bldon 05-29-2021 Platelets (Bld) [#/Vol] 220 10*3/uL 150-450 [facility] Work Phone: Serum or plasma albumin luciana urement (mass/volume)on 05-29-2021 Albumin [Mass/Vol] 3.5 g/dL 3.2-5.0 [facility] Work Phone: Serum or plasma calcium luciana urement (mass/volume)on 05-29-2021 Calcium [Mass/Vol] 8.2 mg/dL 8.5-10.1 [facility] Work Phone: Serum or plasma creatinine m easurement (mass/volume)on 05-29-2021 Creatinine [Mass/Vol] 1.19 mg/dL 0.70-1.30 [facility] Work Phone: Comment on above: The validity of the calculated GFR & GFRAA in patients over 70 years has not been determined. Clinical correlation is essential. Serum or plasma salicylates measurement (mass/volume)on 05-29-2021 Salicylates [Mass/Vol] 12.6 mg/dL 2.8-20.0 [facility] Work Phone: Serum or plasma urea nitroge n measurement (mass/volume)on 05-29-2021 Urea nitrogen [Mass/Vol] 13 mg/dL 7-18 [facility] Work Phone: Thin prep Papanicolaou smear with manual screeningon 05-29-2021 Thin prep Papanicolaou smear with manual screening 33 U/L 15-37 [facility] Work Phone: Thin prep Papanicolaou smear with manual screening 10 5-15 [facility] Work Phone: [phone] Urine phencyclidine (PCP) de tectionon 05-29-2021 Phencyclidine Ql (U) Negative [facility] Work Phone: [phone] Glucose Glucometer (BldC) [M ass/Vol]on 05-22-2021 Glucose [Mass/Vol] 213 mg/dL 74-106 [facility] Work Phone: Comment on above: MANAGEMENT OF PATIEN T CARE PER NURSING PROTOCOL No Panel Informationon 05-22 Ethyl Alcohol Level 101.0 mg/dL [facility] Work Phone: Comment on above: The serum:whole bloo d ethanol ratio is approximately 1.14and varies slightly with hematocrit. Medical Alcohol reference interval and critical value innon-tolerant individuals; 50 - 100 Impairment 100 Intoxication 100 - 250 Severe Poisoning 250 - 400 Deep/possible fatal coma Absolute lymphocyte counton 05-21-2021 Lymphocytes Auto (Unsp spec) [#/Vol] 1.24 10*3/uL 0.83-4.51 [facility] Work Phone: Basophil percentageon 2021 Basophils/100 WBC (Bld) 2.0 % 0-1 [facility] Work Phone: [phone] Bilirubin [Mass/Vol] 0.20 mg/dL 0.20-1.00 [facility] Work Phone: [phone] Comment on above: For patients on eltr ombopag therapy, use of Dimension [place] TBIL is not recommended. Chloride [Moles/Vol] 105 mmol/L 98-107 [facility] Work Phone: Eosinophils/100 WBC (Bld) 2.2 % 0-5 [facility] Work Phone: [phone] Glucose [Mass/Vol] 440 mg/dL 74-106 [facility] Work Phone: [phone] Comment on above: Glucose result great er than or equal to 200 mg/dLsuggests DIABETES MELLITUS per A.D.A. criteria. Neutrophils (Bld) [#/Vol] 4.0 10*3/uL 2.0-7.7 [facility] Work Phone: [phone] Neutrophils/100 WBC (Bld) 66.7 % 47-70 [facility] Work Phone: [phone] Potassium [Moles/Vol] 3.5 mmol/L 3.5-5.1 [facility] Work Phone: [phone] Protein [Mass/Vol] 6.7 g/dL 6.4-8.2 [facility] Work Phone: [phone] Sodium [Moles/Vol] 142 mmol/L 136-145 [facility] Work Phone: [phone] WBC (Bld) [#/Vol] 6.0 10*3/uL 4.4-11.0 [facility] Work Phone: [phone] Blood erythrocytes count (nu mber/volume)on 05-21-2021 RBC (Bld) [#/Vol] 4.36 10*6/uL 4.6-6.2 [facility]: [phone] Blood hemoglobin measurement (mass/volume)on 05-21-2021 Hemoglobin (Bld) [Mass/Vol] 14.1 g/dL 13.0-16.5 [facility] Work Phone: [phone] Blood lymphocytes/100 leukoc yteson 05-21-2021 Lymphocytes/100 WBC (Bld) 20.5 % 19-41 [facility] Work Phone: [phone] Blood monocytes/100 leukocyt eson 05-21-2021 Monocytes/100 WBC (Bld) 8.3 % 0-10 [facility] Work Phone: [phone] Blood platelet mean volumeon 05-21-2021 Platelet mean volume (Bld) [Entitic vol] 9.9 fL 6.2-12.0 [facility] Work Phone: [phone] Determination of erythrocyte mean corpuscular volume (MCV)on 05-21-2021 MCV (RBC) [Entitic vol] 93.8 fL 80-94 [facility] Work Phone: Hematocrit Auto (Bld) [Volum e fraction]on 05-21-2021 Hematocrit (Bld) [Volume fraction] 40.9 % 40-54 [facility] Work Phone: INR in Blood by Coagulation assayon 05-21-2021 INR Coag (Bld) [Relative time] 1.1 {INR} [facility] Work Phone: Laboratory - Chemistry and C hemistry - challengeon 05-21-2021 ALP [Catalytic activity/Vol] 109 U/L 45-117 [facility] Work Phone: ALT [Catalytic activity/Vol] 23 U/L 16-61 [facility] Work Phone: CO2 [Moles/Vol] 27.0 mmol/L 21.0-32.0 [facility] Work Phone: Globulin (S) [Mass/Vol] 3.3 g/dL 2.2-4.2 [facility] Work Phone: Urea nitrogen/Creatinine [Mass ratio] 8.5 mg/mg 10-20 [facility] Work Phone: Laboratory - Coagulationon 0 05-21-2021 PT Coag (PPP) [Time] 13.9 s 11.7-14.9 [facility] Work Phone: Laboratory - Drug toxicology on 05-21-2021 Amphetamines Ql (U) Negative [facility] Work Phone: Benzodiazepines Ql (U) Negative [facility] Work Phone: Cannabinoids Screen Ql (U) Negative [facility] Work Phone: Cocaine Ql (U) Negative [facility] Work Phone: Opiates Ql (U) Negative [facility] Work Phone: Laboratory - Hematology and Cell countson 05-21-2021 Erythrocyte distribution width (RBC) [Entitic vol] 48.5 fL 35.1-43.9 [facility] Work Phone: [phone] Erythrocyte distribution width (RBC) [Ratio] 13.9 % 11.6-14.6 [facility] Work Phone: [phone] Immature granulocytes/100 WBC (Bld) 0.300 % 0.0-0.9 [facility] Work Phone: [phone] Comment on above: IG% - Immature Granu locytes (promyelocytes, myelocytes and metamyelocytes) > 1% indicates that a LEFT SHIFT is Present. MCH (RBC) [Entitic mass] 32.3 pg 27.0-32.0 [facility] Work Phone: [phone] Nucleated RBC/100 WBC (Bld) [Ratio] 0 % 0-5 [facility] Work Phone: [phone] MCHC Auto (RBC) [Mass/Vol]on 05-21-2021 MCHC (RBC) [Mass/Vol] 34.5 g/dL 32-36 [facility] Work Phone: [phone] No Panel Informationon 05-21 MDMA (Ecstasy) Screen Negative [facility] Work Phone: [phone] Urine Barbiturates Screen Negative [facility] Work Phone: [phone] Urine Drug Screen Comment [facility] Work Phone: [phone] Comment on above: CONFIRMATORY TESTING FOR ALL [...] USE TESTMNEMONIC: [facility] Urine Methadone Screen Negative [facility] Work Phone: [phone] Estimated Creatinine Clearance Calc 68.24 ml/min [facility] Work Phone: [phone] Estimated GFR (MDRD) Amer 81 mL/min >60 [facility] Work Phone: Comment on above: GFR Calc Estimated GFR (MDRD) Non-Af Amer 67 mL/min >60 [facility] Work Phone: Comment on above: Non- GFR Calc Platelets bldon 05-21-2021 Platelets (Bld) [#/Vol] 232 10*3/uL 150-450 [facility] Work Phone: Serum or plasma albumin luciana urement (mass/volume)on 05-21-2021 Albumin [Mass/Vol] 3.4 g/dL 3.2-5.0 [facility] Work Phone: Serum or plasma albumin/glob ulin mass ratioon 05-21-2021 Albumin/Globulin [Mass ratio] 1.0 {ratio} 0.9-2.4 [facility] Work Phone: Serum or plasma calcium luciana urement (mass/volume)on 05-21-2021 Calcium [Mass/Vol] 8.2 mg/dL 8.5-10.1 [facility] Work Phone: Serum or plasma creatinine m easurement (mass/volume)on 05-21-2021 Creatinine [Mass/Vol] 1.18 mg/dL 0.70-1.30 [facility] Work Phone: Comment on above: The validity of the calculated GFR & GFRAA in patients over 70 years has not been determined. Clinical correlation is essential. Serum or plasma urea nitroge n measurement (mass/volume)on 05-21-2021 Urea nitrogen [Mass/Vol] 10 mg/dL 7-18 [facility] Work Phone: [phone] Thin prep Papanicolaou smear with manual screeningon 05-21-2021 Thin prep Papanicolaou smear with manual screening 18 U/L 15-37 [facility] Work Phone: [phone] Thin prep Papanicolaou smear with manual screening 10 5-15 [facility] Work Phone: [phone] Urine phencyclidine (PCP) de tectionon 05-21-2021 Phencyclidine Ql (U) Negative [facility] Work Phone: Absolute lymphocyte counton 05-05-2021 Lymphocytes Auto (Unsp spec) [#/Vol] 1.28 10*3/uL 0.83-4.51 [facility] Work Phone: Basophil percentageon 2021 Basophils/100 WBC (Bld) 0.9 % 0-1 [facility] Work Phone: Chloride [Moles/Vol] 106 mmol/L 98-107 [facility] Work Phone: Eosinophils/100 WBC (Bld) 2.5 % 0-5 [facility] Work Phone: Glucose [Mass/Vol] 96 mg/dL 74-106 [facility] Work Phone: Neutrophils (Bld) [#/Vol] 4.7 10*3/uL 2.0-7.7 [facility] Work Phone: Neutrophils/100 WBC (Bld) 68.2 % 47-70 [facility] Work Phone: Potassium [Moles/Vol] 3.7 mmol/L 3.5-5.1 [facility] Work Phone: Sodium [Moles/Vol] 139 mmol/L 136-145 [facility] Work Phone: WBC (Bld) [#/Vol] 6.9 10*3/uL 4.4-11.0 [facility] Work Phone: Blood erythrocytes count (nu mber/volume)on 05-05-2021 RBC (Bld) [#/Vol] 3.88 10*6/uL 4.6-6.2 [facility] Work Phone: Blood hemoglobin measurement (mass/volume)on 05-05-2021 Hemoglobin (Bld) [Mass/Vol] 12.4 g/dL 13.0-16.5 [facility] Work Phone: Blood lymphocytes/100 leukoc yteson 05-05-2021 Lymphocytes/100 WBC (Bld) 18.6 % 19-41 [facility] Work Phone: Blood monocytes/100 leukocyt eson 05-05-2021 Monocytes/100 WBC (Bld) 9.5 % 0-10 [facility] Work Phone: [phone] Blood platelet mean volumeon 05-05-2021 Platelet mean volume (Bld) [Entitic vol] 11.0 fL 6.2-12.0 [facility] Work Phone: [phone] Determination of erythrocyte mean corpuscular volume (MCV)on 05-05-2021 MCV (RBC) [Entitic vol] 93.6 fL 80-94 [facility] Work Phone: [phone] Glucose Glucometer (BldC) [M ass/Vol]on 05-05-2021 Glucose [Mass/Vol] 183 mg/dL 74-106 [facility] Work Phone: Comment on above: MANAGEMENT OF PATIEN T CARE PER NURSING PROTOCOL Hematocrit Auto (Bld) [Volum e fraction]on 05-05-2021 Hematocrit (Bld) [Volume fraction] 36.3 % 40-54 [facility] Work Phone: Laboratory - Chemistry and C hemistry - challengeon 05-05-2021 CO2 [Moles/Vol] 29.0 mmol/L 21.0-32.0 [facility] Work Phone: [phone] Urea nitrogen/Creatinine [Mass ratio] 6.7 mg/mg 10-20 [facility] Work Phone: [phone] Laboratory - Hematology and Cell countson 05-05-2021 Erythrocyte distribution width (RBC) [Entitic vol] 47.8 fL 35.1-43.9 [facility] Work Phone: [phone] Erythrocyte distribution width (RBC) [Ratio] 13.9 % 11.6-14.6 [facility] Work Phone: [phone] Immature granulocytes/100 WBC (Bld) 0.300 % 0.0-0.9 [facility] Work Phone: [phone] Comment on above: IG% - Immature Granu locytes (promyelocytes, myelocytes and metamyelocytes) > 1% indicates that a LEFT SHIFT is Present. MCH (RBC) [Entitic mass] 32.0 pg 27.0-32.0 [facility] Work Phone: [phone] Nucleated RBC/100 WBC (Bld) [Ratio] 0 % 0-5 [facility] Work Phone: [phone] MCHC Auto (RBC) [Mass/Vol]on 05-05-2021 MCHC (RBC) [Mass/Vol] 34.2 g/dL 32-36 [facility] Work Phone: [phone] No Panel Informationon 05-05 Estimated Creatinine Clearance Calc 79.39 ml/min [facility] Work Phone: [phone] Estimated GFR (MDRD) Amer 94 mL/min >60 [facility] Work Phone: [phone] Comment on above: GFR Calc Estimated GFR (MDRD) Non-Af Amer 78 mL/min >60 [facility] Work Phone: [phone] Comment on above: Non- GFR Calc Platelets bldon 05-05-2021 Platelets (Bld) [#/Vol] 192 10*3/uL 150-450 [facility] Work Phone: [phone] Serum or plasma calcium luciana urement (mass/volume)on 05-05-2021 Calcium [Mass/Vol] 8.1 mg/dL 8.5-10.1 [facility] Work Phone: [phone] Serum or plasma creatinine m easurement (mass/volume)on 05-05-2021 Creatinine [Mass/Vol] 1.04 mg/dL 0.70-1.30 [facility] Work Phone: [phone] Comment on above: The validity of the calculated GFR & GFRAA in patients over 70 years has not been determined. Clinical correlation is essential. Serum or plasma urea nitroge n measurement (mass/volume)on 05-05-2021 Urea nitrogen [Mass/Vol] 7 mg/dL 7-18 [facility] Work Phone: Thin prep Papanicolaou smear with manual screeningon 05-05-2021 Thin prep Papanicolaou smear with manual screening 4 5-15 [facility] Work Phone: [phone] Absolute lymphocyte counton 05-04-2021 Lymphocytes Auto (Unsp spec) [#/Vol] 0.91 10*3/uL 0.83-4.51 [facility] Work Phone: Basophil percentageon 2021 Basophils/100 WBC (Bld) 0.7 % 0-1 [facility] Work Phone: Chloride [Moles/Vol] 100 mmol/L 98-107 [facility] Work Phone: Eosinophils/100 WBC (Bld) 0.7 % 0-5 [facility] Work Phone: Glucose [Mass/Vol] 122 mg/dL 74-106 [facility] Work Phone: Comment on above: Fasting Glucose resu lt from 100 to 125 mg/dL suggests IMPAIRED HOMEOSTASIS per A.D.A. criteria. Neutrophils (Bld) [#/Vol] 8.5 10*3/uL 2.0-7.7 [facility] Work Phone: Neutrophils/100 WBC (Bld) 81.1 % 47-70 [facility] Work Phone: [phone] Potassium [Moles/Vol] 2.9 mmol/L 3.5-5.1 [facility] Work Phone: [phone] Sodium [Moles/Vol] 139 mmol/L 136-145 [facility] Work Phone: [phone] WBC (Bld) [#/Vol] 10.5 10*3/uL 4.4-11.0 [facility] Work Phone: Blood erythrocytes count (nu mber/volume)on 05-04-2021 RBC (Bld) [#/Vol] 4.37 10*6/uL 4.6-6.2 [facility] Work Phone: Blood hemoglobin measurement (mass/volume)on 05-04-2021 Hemoglobin (Bld) [Mass/Vol] 14.1 g/dL 13.0-16.5 [facility] Work Phone: Blood lymphocytes/100 leukoc yteson 05-04-2021 Lymphocytes/100 WBC (Bld) 8.7 % 19-41 [facility] Work Phone: Blood monocytes/100 leukocyt eson 05-04-2021 Monocytes/100 WBC (Bld) 8.4 % 0-10 [facility] Work Phone: Blood platelet mean volumeon 05-04-2021 Platelet mean volume (Bld) [Entitic vol] 11.4 fL 6.2-12.0 [facility] Work Phone: Determination of erythrocyte mean corpuscular volume (MCV)on 05-04-2021 MCV (RBC) [Entitic vol] 96.1 fL 80-94 [facility] Work Phone: Hematocrit Auto (Bld) [Volum e fraction]on 05-04-2021 Hematocrit (Bld) [Volume fraction] 42.0 % 40-54 [facility] Work Phone: Laboratory - Chemistry and C hemistry - challengeon 05-04-2021 Magnesium [Mass/Vol] 1.7 mg/dL 1.6-2.6 [facility] Work Phone: CO2 [Moles/Vol] 32.0 mmol/L 21.0-32.0 [facility] Work Phone: Urea nitrogen/Creatinine [Mass ratio] 4.8 mg/mg 10-20 [facility] Work Phone: Laboratory - Hematology and Cell countson 05-04-2021 Erythrocyte distribution width (RBC) [Entitic vol] 49.2 fL 35.1-43.9 [facility] Work Phone: Erythrocyte distribution width (RBC) [Ratio] 14.0 % 11.6-14.6 [facility] Work Phone: Immature granulocytes/100 WBC (Bld) 0.400 % 0.0-0.9 [facility] Work Phone: Comment on above: IG% - Immature Granu locytes (promyelocytes, myelocytes and metamyelocytes) > 1% indicates that a LEFT SHIFT is Present. MCH (RBC) [Entitic mass] 32.3 pg 27.0-32.0 [facility] Work Phone: Nucleated RBC/100 WBC (Bld) [Ratio] 0 % 0-5 [facility] Work Phone: MCHC Auto (RBC) [Mass/Vol]on 05-04-2021 MCHC (RBC) [Mass/Vol] 33.6 g/dL 32-36 [facility] Work Phone: No Panel Informationon 05-04 Troponin I High Sensitivity 38 pg/mL 3.0-78.0 [facility] Work Phone: Comment on above: Please Note: New Kelly t Units and Gender Specific Reference Ranges. For more information see Policy Stat Procedure [place] High Sensitivity Troponin (TNIH) and attachments. Estimated Creatinine Clearance Calc 68.19 ml/min [facility] Work Phone: Estimated GFR (MDRD) Amer 76 mL/min >60 [facility] Work Phone: Comment on above: GFR Calc Estimated GFR (MDRD) Non-Af Amer 63 mL/min >60 [facility] Work Phone: Comment on above: Non- GFR Calc Troponin I High Sensitivity 42 pg/mL 3.0-78.0 [facility] Work Phone: Comment on above: Please Note: New Kelly t Units and Gender Specific Reference Ranges. For more information see Policy Stat Procedure [place] High Sensitivity Troponin (TNIH) and attachments. Platelets bldon 05-04-2021 Platelets (Bld) [#/Vol] 240 10*3/uL 150-450 [facility] Work Phone: Serum or plasma calcium luciana urement (mass/volume)on 05-04-2021 Calcium [Mass/Vol] 8.8 mg/dL 8.5-10.1 [facility] Work Phone: Serum or plasma creatinine m easurement (mass/volume)on 05-04-2021 Creatinine [Mass/Vol] 1.25 mg/dL 0.70-1.30 [facility] Work Phone: Comment on above: The validity of the calculated GFR & GFRAA in patients over 70 years has not been determined. Clinical correlation is essential. Serum or plasma urea nitroge n measurement (mass/volume)on 05-04-2021 Urea nitrogen [Mass/Vol] 6 mg/dL 7-18 [facility] Work Phone: Thin prep Papanicolaou smear with manual screeningon 05-04-2021 Thin prep Papanicolaou smear with manual screening 7 5-15 [facility] Work Phone: LABORATORYOrdered By: Mercedes Chun on 05-02-2021 Blood Glucose Interventions Notify physician (05/02/21 3:24 PM) [facility] Work Phone: Blood Glucose Testing Reason Routine (05/02/21 3:24 PM) [facility] Work Phone: Glucose [Mass/Vol] 231 mg/dL Invalid Interpretation Code 70 - 110 mg/dL [facility] Work Phone: Blood Glucose Testing Reason Routine (05/02/21 2:40 PM) [facility] Work Phone: Glucose [Mass/Vol] 75 mg/dL Invalid Interpretation Code 70 - 110 mg/dL [facility] Work Phone: Time of Stated Blood Glucose [id number] [facility] Work Phone: Blood Glucose Interventions Notify physician (05/02/21 1:40 PM) [facility] Work Phone: Blood Glucose Testing Reason Routine (05/02/21 1:40 PM) [facility] Work Phone: Glucose [Mass/Vol] 355 mg/dL Invalid Interpretation Code 70 - 110 mg/dL [facility] Work Phone: LABORATORYOrdered By: Rodrigo Tobar [...] blood sugar, Notify physician (05/02/21 2:40 PM) [facility] Work Phone: LABORATORYOrdered By: Ade Marion [...] Chemistry S EMERGENCY REPORTon 8 EMERGENCY REPORT [place] [facility] REPORT NAME ACCOUNT SEX AGE ADMIT DISCHARGE PT MED. RECORD# NUMBER DATE DATE TYPE ANEESH [id number] Yris 57 11/09/17 3 KIMBERLY [id number] ROOM: ER DATE OF : 1960 DICTATING [...] has also had heart disease with previous CT. Apparently, he does have a pacemaker in [...] Dr. Brock, who will arrange transfer to [place]. Dictated By: Bandar Daigle MD 11/09/17 15:22 JOB #: [id number] Transcribed By: am 11/09/17 15:30 Electronically signed by: YO Daigle M.D. 11/17/17 07:38 Page 2 of 2 KIMBERLY MELENDREZ Emergency Room Report Normal [facility] ALCOHOL-BLOOD MEDICALon 10-0 Ethanol mass conc 212 mg/dL High 0 - 50 [facility] Comment on above: Performed By: #### 2 36145 ####[facility],[address] [place] [address] 97820 CBCon 11-09-2017 Basophils Auto #/vol (Bld) 0.20 x10EE3/UL High 0.00 - 0.10 [facility] Comment on above: Performed By: #### 2 44712 ####[facility],[address] [place] [address] 08704 Basophils/100 WBC Auto (Bld) 2.8 % High 0.0 - 2.0 [facility] Comment on above: Performed By: #### 2 78293 ####[facility],[address] [place] [address] 23278 CBC Normal [facility] Comment on above: Result Comment: CBC- COMPLETE BLOOD COUNT Performed By: #### 2 96637 ####[facility],[address] [place] [address] 76317 Eosinophils Auto #/vol (Bld) 0.20 x10EE3/UL Normal 0.00 - 0.50 [facility] Comment on above: Performed By: #### 2 21535 ####[facility],[address] [place] [address] Eosinophils/100 WBC Auto (Bld) 2.6 % Normal 0.0 - 7.0 [facility] Comment on above: Performed By: #### 2 52403 ####[facility],[address] [place] [address] Erythrocyte distribution width Auto Ratio (RBC) 14.5 % Normal 12.0 - 15.6 [facility] Comment on above: Performed By: #### 2 70546 ####[facility],[address] [place] [address] Hematocrit Auto Volume Fraction (Bld) 38.9 % Low 40.0 - 52.0 [facility] Comment on above: Performed By: #### 2 15721 ####[facility],[address] [place] [address] Hemoglobin mass conc (Bld) 13.0 g/dL Normal 13.0 - 17.5 [facility] Comment on above: Performed By: #### 2 62036 ####[facility],[address] [place] [address] Lymphocytes Auto #/vol (Bld) 2.10 x10EE3/UL Normal 0.80 - 2.80 [facility] Comment on above: Performed By: #### 2 44766 ####[facility],[address] [place], [place] [address] Lymphocytes/100 WBC Auto (Bld) 29.8 % Normal 20.0 - 45.0 [facility] Comment on above: Performed By: #### 2 54726 ####[facility],[address] [place] [address] MANUAL DIFF N/A Normal [facility] Comment on above: Performed By: #### 2 14823 ####[facility],[address] [place], [place] [address] MCH Auto Entitic mass (RBC) 31 pg Normal 27 - 33 [facility] Comment on above: Performed By: #### 2 41018 ####[place] [address] MCHC Auto mass conc (RBC) 33 X10 3 Normal 32 - 36 [facility] Comment on above: Performed By: #### 2 81029 ####[facility],[address] [place] [address] MCV Auto Entitic volume (RBC) 94 fL Normal 81 - 98 [facility] Comment on above: Performed By: #### 2 55045 ####[place] [address] Monocytes Auto #/vol (Bld) 0.60 x10EE3/UL Normal 0.20 - 1.00 [facility] Comment on above: Performed By: #### 2 20604 ####[facility],[address] [place] [address] MONOS % 8.9 % Normal 0.0 - 10.0 [facility] Comment on above: Performed By: #### 2 06444 ####[facility],[address] [place] [address] Morphology Interp Jose Carlos (Bld) N/A Normal [facility] Comment on above: Result Comment: {CD] Performed By: #### 2 08894 ####[facility],[address] [place] [address] Neutrophils Auto #/vol (Bld) 3.90 x10EE3/UL Normal 1.50 - 7.10 [facility] Comment on above: Performed By: #### 2 93539 ####[facility],[address] [place] [address] Neutrophils/100 WBC Auto (Bld) 55.9 % Normal 46.0 - 76.0 [facility] Comment on above: Performed By: #### 2 19917 ####[place] [address],[place] [address] Platelet mean volume Auto Entitic volume (Bld) 9.2 fL Normal 6.4 - 10.5 [facility] Comment on above: Result Comment: AUTO MATED DIFFERENTIAL Performed By: #### 2 37598 ####[facility],[address] [place] [address] 64624 Platelets Auto #/vol (Bld) 225 x10EE3/UL Normal 150 - 450 [facility] Comment on above: Performed By: #### 2 35606 ####[facility],[address] [place] [address] 15720 RBC Auto #/vol (Bld) 4.15 x 10EE6/UL Low 4.50 - 6.0 0 [facility] Comment on above: Performed By: #### 2 34034 ####[facility],[address] [place] [address] 71707 WBC Auto #/vol (Bld) 7.0 x 10EE3/UL Normal 4.5 - 10.8 [facility] Comment on above: Performed By: #### 2 09252 ####[facility],[address] [place] [address] 56178 CHEST 1 VIEWon 11-09-2017 CHEST 1 VIEW [place] [address] Patient: KIMBERLY MELENDREZ Phone#: : 1960 Age: 57 Gender: M Pt. Type: ER Account: [id number] Location: 05 Ordering: BANDAR DAIGLE Exam Date: 11/09/2017/12:50 Family Phys: Charge Code: [id number] Physician: Cotton Order #: [id number] DLP Dose#: PROCEDURE: X-RAY CHEST 1 VIEW [...] on 11/09/2017 at 13:07 Normal [facility] CMP with eGFRon 11-09-2017 Age Reported 57 years Normal [facility] Comment on above: Performed By: #### 2 81122 ####[facility],[address] [place] [address] 83314 Albumin mass conc 3.9 g/dL Normal 3.4 - 4.8 [facility] Comment on above: Performed By: #### 2 35941 ####[address] [address] Albumin/Globulin mass ratio 1.4 {ratio} Normal 0.9 - 1.6 [facility] Comment on above: Performed By: #### 2 05440 ####[facility],[address] [place] [address] 59723 ALK PHOS 113 U/L Normal 38 - 126 [facility] Comment on above: Performed By: #### 2 89329 ####[address] [address] ALT/SGPT 66 U/L High 10 - 40 [facility] Comment on above: Performed By: #### 2 02715 ####[facility],[address] [place] [address] 73154 Anion gap 3 molar conc 11 mmol/L Normal 10 - 20 [facility] Comment on above: Performed By: #### 2 84515 ####[facility],[address] [place] [address] 55738 AST/SGOT 41 U/L High 13 - 39 [facility] Comment on above: Performed By: #### 2 85390 ####[facility],[address] [place] [address] 80701 B/C RATIO 15 ratio Normal 0 - 30 [facility] Comment on above: Performed By: #### 2 88881 ####[facility],[address] [place] [address] 56957 Bilirubin mass conc 0.3 mg/dL Normal 0.0 - 1.5 [facility] Comment on above: Performed By: #### 2 84902 ####[facility],[address] [place] [address] 42677 Calcium mass conc 8.6 mg/dL Normal 8.6 - 10.2 [facility] Comment on above: Performed By: #### 2 41305 ####[facility],[address] [place] [address] 56627 Chloride molar conc 100 mmol/L Normal 98 - 107 [facility] Comment on above: Performed By: #### 2 19484 ####[facility],[address] [place] [address] 46710 CO2 molar conc 26.3 mmol/L Normal 21.0 - 31.0 [facility] Comment on above: Performed By: #### 2 71013 ####[facility],[address] [place] [address] 25366 Creatinine mass conc 1.1 mg/dL Normal 0.7 - 1.3 [facility] Comment on above: Performed By: #### 2 56996 ####[facility],[address] [place] [address] 47164 GFR/1.73 sq M predicted among non-blacks MDRD vol rate/area (S/P/Bld) mL/min/{1.73_m2} Normal 60 - 999 [facility] Comment on above: Performed By: #### 2 88328 ####[facility],[address] [place] [address] 15675 Result Comment: ACCO RDING TO THE NATIONAL KIDNEY DISEASE EDUCATION PROGRAM(NKDE), A NORMAL eGFRIS A VALUE GREATER THAN OR EQUAL TO 60 ML/MIN/1.73 SQ METERS.CHRONIC KIDNEY DISEASE: <60mL/MIN/1.73 SQ METERSKIDNEY FAILURE: <15mL/MIN/1.73 SQ METERSTHIS TEST SHOULD ONLY BE USED FOR PATIENTS 18 YEARS OF AGE AND OLDER. GFR/1.73 sq M predicted among non-blacks MDRD vol rate/area (S/P/Bld) Normal [facility] Comment on above: Result Comment: COMP REHENSIVE METABOLIC PANEL Performed By: #### 2 18484 ####[address] [address] Globulin Calculated mass conc (S) 2.7 g/dL Normal 1.5 - 3.8 [facility] Comment on above: Performed By: #### 2 18484 ####[address] [address] Glucose mass conc 600 mg/dL Critically high 74 - 106 [facility] Comment on above: Result Comment: { CA LLED TO Bernadette/1330{ READ BACK BY [id number]/h/lm Performed By: #### 2 63578 ####[address] [address] Potassium molar conc 4.1 mmol/L Normal 3.5 - 5.1 [facility] Comment on above: Performed By: #### 2 06945 ####[address] [address] Protein mass conc 6.6 g/dL Normal 6.4 - 8.3 [facility] Comment on above: Performed By: #### 2 78324 ####[address] [address] Sodium molar conc 133 mmol/L Low 136 - 145 [facility] Comment on above: Performed By: #### 2 83791 ####[address] [address] Urea nitrogen mass conc 17 mg/dL Normal 6 - 20 [facility] Comment on above: Performed By: #### 2 94315 ####[facility],[address] [place] [address] 76747 DRUG SCREEN URINE MEDICon AMPHETAMINES Negative Normal [facility] Comment on above: Performed By: #### 2 68144 ####[facility],[address] [place] [address] 89720 B-DIAZEPINES Negative Normal [facility] Comment on above: Performed By: #### 2 13445 ####[facility],[address] [place] [address] 00844 BARBITURATES Negative [facility] Comment on above: Performed By: #### 2 89847 ####[facility],[address] [place] [address] 33254 COCAINE Negative [facility] Comment on above: Performed By: #### 2 65583 ####[facility],[address] [place] [address] 24982 DRUG SCREEN URINE MEDIC Normal [facility] Comment on above: Result Comment: DRUG SCREEN - URINE Performed By: #### 2 93091 ####[facility],[address] [place] [address] 84038 METHADONE Negative [facility] Comment on above: Performed By: #### 2 04933 ####[facility],[address] [place] [address] 02125 OPIATES Negative [facility] Comment on above: Performed By: #### 2 59619 ####[facility],[address] [place] [address] 25569 PCP Negative [facility] Comment on above: Performed By: #### 2 96206 ####[facility],[address] [place] [address] 32934 TCA Negative [facility] Comment on above: Performed By: #### 2 33675 ####[facility],[address] [place] [address] THC Negative Normal [facility] Comment on above: Result Comment: CHARLEY ENTS RECEIVING PROTON PUMP INHIBITORS MAY DEMONSTRATE FALSE POSITIVETHC/CANNABINOID RESULTS. AN ALTERNATIVE CONFIRMATORY METHOD SHOULD BE CONSIDEREDTO VERIFY POSITIVE RESULTS. Performed By: #### 2 72668 ####[facility],[address] [place] [address] HGB A1Con 11-09-2017 Hemoglobin A1c/Hemoglobin.total mass fraction (Bld) 12.0 % High 4.4 - 6.4 [facility] Comment on above: Result Comment: {HB] {A1] Performed By: #### 2 04549 ####[facility],[address] [place] [address] HISTORY AND PHYSICALon 11-09 HISTORY AND PHYSICAL [place] HISTORY & PHYSICAL NAME ACCOUNT SEX AGE ADMIT DISCHARGE PT MED. RECORD# NUMBER DATE DATE TYPE ANEESH [id number] Yris 57 11/09/17 3 KIMBERLY [id number] ROOM: ER DATE OF : 64 DICTATING PHYSICIAN: Kye Brock The patient is seen in the emergency department at [facility] on November 09 and is transferred to [facility]. CHIEF COMPLAINT: Intoxication. HISTORY OF PRESENT [...] Crisis Center. He is being sent to [facility] for further treatment and alcohol withdrawal [...] proper withdraw policy. I will transfer to [facility] to my service where we may apply the [facility] Withdrawal Assessment protocol and properly detoxify him. Once he is no longer under the influence, Crisis will be asked to see him at that time. It would not be inappropriate to call them in with his present state. Dictated By: Kye Brock MD 11/09/17 16:19 JOB #: [id number] Transcribed By: jessica 11/09/17 16:51 Electronically signed by: Al Brock M.D. 11/09/17 20:19 Update to H&P: [ ] No changes: I have examined the patient and reviewed the H&P and there are no changes. [ ] As previously dictated with the following changes: PHYSICIAN SIGNATURE: __ TIME: DATE: Page 2 of 3 KIMBERLY MELENDREZ History & Physical Normal [facility] KETONE, BLOOD, QUALon 2017 KETONES Negative Normal ORIN - NEGATIVE [facility] Comment on above: Result Comment: SPEC IMEN SERUM Performed By: #### 2 34106 ####[facility],[address] [place], [place] [address] LACTATEon 11-09-2017 Lactate molar conc 14.5 mg/dL Normal 4.5 - 18.0 [facility] Comment on above: Performed By: #### 2 73423 ####[facility],[address] [place] [address] 79262 Lactate molar conc 18.5 mg/dL High 4.5 - 18.0 [facility] Comment on above: Performed By: #### 2 32689 ####[facility],[address] [place], [place] [address] TROPONINon 11-09-2017 Troponin I.cardiac mass conc 0.01 ng/mL Normal 0.00 - 0.05 [facility] Comment on above: Result Comment: Elev [...] as heterophile antibodies). Performed By: #### 2 00305 ####[place] [address] Troponin I.cardiac mass conc 0.01 ng/mL Normal 0.00 - 0.05 [facility] Comment on above: Result Comment: Elev [...] as heterophile antibodies). Performed By: #### 2 60120 ####[place] [address] URINALYSISon 11-09-2017 Bilirubin Negative Normal NORMAL: NEGATIVE [facility] Comment on above: Performed By: #### 2 00607 ####[place] [address] Blood Negative Normal NORMAL: NEGATIVE [facility] Comment on above: Performed By: #### 2 31104 ####[facility],[address] [place] [address] Clarity clear Normal NORMAL: CLEAR [facility] Comment on above: Performed By: #### 2 76460 ####[place] [address] Color p.yel Normal NORMAL: YELLOW [facility] Comment on above: Performed By: #### 2 96983 ####[place] [address] Glucose 1000 Abnormal NORMAL: NORMAL [facility] Comment on above: Performed By: #### 2 25406 ####[place] [address] Ketone Negative Normal NORMAL: NEGATIVE [facility] Comment on above: Performed By: #### 2 68557 ####[facility],[address] [place] [address],[facility] [address] Leukocytes Negative Normal NORMAL: NEGATIVE [facility] Comment on above: Performed By: #### 2 39008 ####[facility],[address] [place] [address] 29896 Microscopic NOT INDICATED Normal [facility] Comment on above: Performed By: #### 2 49446 ####[facility],[address] [place] [address] 64041 Nitrite Negative Normal NORMAL: NEGATIVE [facility] Comment on above: Performed By: #### 2 90643 ####[facility],[address] [place] [address] 58063 ph 6 Normal NORMAL: 5.0-8.0 [facility] Comment on above: Performed By: #### 2 29360 ####[facility],[address] [place] [address] 27470 Protein mass conc Negative Normal NORMAL: NEGATIVE [facility] Comment on above: Performed By: #### 2 50237 ####[facility],[address] [place] [address] 68856 Sp [place] 1.010 Normal NORMAL: 1.010-1.030 [facility] Comment on above: Performed By: #### 2 45794 ####[facility],[address] [place] [address] 82739 Specimen type UNSPECIFIED Normal [facility] Comment on above: Performed By: #### 2 83518 ####[facility],[address] [place] [address] 51987 Urobilinog NORM Normal NORMAL: NORMAL [facility] Comment on above: Performed By: #### 2 21626 ####[facility],[address] [place] [address] 30883 Vital Signs Date Time Vital Sign Value Performing Clinician Facility 10-24-2024 20:24-0400 SaO2% (BldA) [Mass fraction] 99 % [facility] Comment on above: Order Comment: Specimen Type: ARTERIAL B LOOD SPECIMENOrdering Facility: [facility] Address: [address] [place], [place] [address] Performed By: #### A LLBG ####[facility] LABCLIA [id number] [address] [address] [facility] 10-24-2024 10:16-0400 SaO2% (BldA) [Mass fraction] 98 % [facility]ORELE[facility] Comment on above: Order Comment: Specimen Type: ARTERIAL B LOOD SPECIMENOrdering Facility: [facility] Address: [address] [place], [place] [address] Performed By: #### A LLBG ####[facility] LABIA [id number] [place] [id number] [facility] 10-24-2024 08:17-0400 SaO2% (BldA) [Mass fraction] 97 % [facility] Comment on above: Order Comment: Specimen Type: ARTERIAL B LOOD SPECIMENOrdering Facility: [facility] Address: [address] [place], [place] [address] Performed By: #### A LLBG ####[facility] LABIA [id number] [address] [address] [facility] 10-23-2024 16:00-0400 SaO2% (BldA) [Mass fraction] 99 % [facility] Comment on above: Order Comment: Specimen Type: ARTERIAL B LOOD SPECIMENOrdering Facility: [facility] Address: [address] [place], [place] [address] Performed By: #### A LLBG ####[facility] LABIA [id number] [address] [address] [place] 10-23-2024 14:01-0400 SaO2% (BldA) [Mass fraction] 97 % [facility]ANDANA ANDREW [facility] Comment on above: Order Comment: Specimen Type: ARTERIAL B LOOD SPECIMENOrdering Facility: [facility] Address: [address] [place], [place] [address] Performed By: #### A LLMG ####[facility] LABCLIA [id number] [address] [address] [place] 10-23-2024 11:24-0400 SaO2% (BldA) [Mass fraction] 95 % [facility] Comment on above: Order Comment: Specimen Type: ARTERIAL B LOOD SPECIMENOrdering Facility: [facility] Address: [address] [place], [place] [address] Performed By: #### A LLBG ####[facility] LABIA [id number] [place] [id number] [place] 10-23-2024 07:54-0400 SaO2% (BldA) [Mass fraction] 99 % [facility] Comment on above: Order Comment: Specimen Type: ARTERIAL B LOOD SPECIMENOrdering Facility: [facility] Address: [address] [place], [place] [address] Performed By: #### A LLBG ####[facility] LABIA [id number] [address] [address] [place] 10-23-2024 00:32-0400 SaO2% (BldA) [Mass fraction] 98 % [facility]AR[facility] Comment on above: Order Comment: Specimen Type: ARTERIAL B LOOD SPECIMENOrdering Facility: [facility] Address: [address] [place], [place] [address] Performed By: #### A LLBG ####[facility] LABIA [id number] [address] [address] [place] 10-22-2024 08:41-0400 SaO2% (BldA) [Mass fraction] 97 % [facility] Comment on above: Order Comment: Specimen Type: ARTERIAL B LOOD SPECIMENOrdering Facility: [facility] Address: [address] [place], [place] [address] Performed By: #### A LLBG ####[facility] LABIA [id number] [place] [id number] [place] 10-22-2024 00:45-0400 SaO2% (BldA) [Mass fraction] 95 % [facility] Comment on above: Order Comment: Specimen Type: ARTERIAL B LOOD SPECIMENOrdering Facility: [facility] Address: [address] [place], [place] [address] Performed By: #### A LLBG ####[facility] [id number] [place] [id number] [place] 10-21-2024 11:32-0400 SaO2% (BldA) [Mass fraction] 94 % [facility] Comment on above: Order Comment: Specimen Type: ARTERIAL B LOOD SPECIMENOrdering Facility: [facility] Address: [address] [place], [place] [id number] Performed By: #### A LLBG ####[facility] [id number] [place] [id number] [place] 10-21-2024 07:48-0400 SaO2% (BldA) [Mass fraction] 97 % VANDANA EDWARDS [facility] Comment on above: Order Comment: Specimen Type: ARTERIAL B LOOD SPECIMENOrdering Facility: [facility] Address: [address] [place], [place] [id number] Performed By: #### A LLBG ####[facility] LABIA [id number] [address] [address] [place] 10-21-2024 05:48-0400 SaO2% (BldA) [Mass fraction] 98 % VANDANA EDWARDS [facility] Comment on above: Order Comment: Specimen Type: ARTERIAL B LOOD SPECIMENOrdering Facility: [facility] Address: [address] [place], [place] [id number] Performed By: #### A LLBG ####[facility] LABIA [id number] [place] [id number] [facility] 10-21-2024 00:14-0400 SaO2% (BldA) [Mass fraction] 100 % VANDANA EDWARDS [facility] Comment on above: Order Comment: Specimen Type: ARTERIAL B LOOD SPECIMENOrdering Facility: [facility] Address: [address] [place], [place] [id number] Performed By: #### A LLBG ####[facility] [id number] [place] [id number] [facility] 10-20-2024 19:42-0400 SaO2% (BldA) [Mass fraction] 98 % VANDANALORELEI EDWARDS [facility] Comment on above: Order Comment: Specimen Type: ARTERIAL B LOOD SPECIMENOrdering Facility: [facility] Address: [address] [place], [place] [id number] Performed By: #### A LLBG ####[facility] [id number] [place] [id number] [facility] 10-20-2024 16:11-0400 SaO2% (BldA) [Mass fraction] 99 % VANDANALORELEI EDWARDS [facility] Comment on above: Order Comment: Specimen Type: ARTERIAL B LOOD SPECIMENOrdering Facility: [facility] Address: [address] [place], [place] [id number] Performed By: #### A LLBG ####[facility] [id number] [address] [address] [facility] [place] 10-20-2024 11:08-0400 SaO2% (BldA) [Mass fraction] 98 % VANDANA ANDREW [facility] Comment on above: Order Comment: Specimen Type: ARTERIAL B LOOD SPECIMENOrdering Facility: [facility] Address: [address] [place], [place] [address] Performed By: #### A LLBG ####[facility] LABIA [id number] [address] [address] [facility] 10-20-2024 08:11-0400 SaO2% (BldA) [Mass fraction] 98 % VANDANA EDWARDS [facility] Comment on above: Order Comment: Specimen Type: ARTERIAL B LOOD SPECIMENOrdering Facility: [facility] Address: [address] [place], [place] [address] Performed By: #### A LLBG ####[facility] LABIA [id number] [place] [id number] [facility] 10-20-2024 00:03-0400 SaO2% (BldA) [Mass fraction] 99 % VANDANA EDWARDS [facility] Comment on above: Order Comment: Specimen Type: ARTERIAL B LOOD SPECIMENOrdering Facility: [facility] Address: [address] [place] [address] Performed By: #### A LLBG ####[facility] [id number] [place] [id number] [facility] 10-19-2024 19:57-0400 SaO2% (BldA) [Mass fraction] 99 % VANDANA EDWARDS [facility] Comment on above: Order Comment: Specimen Type: ARTERIAL B LOOD SPECIMENOrdering Facility: [facility] Address: [address] [place], [place] [address] Performed By: #### A LLBG ####[facility] LABIA [id number] [address] [address] [facility] 10-19-2024 07:48-0400 SaO2% (BldA) [Mass fraction] 96 % VANDANA EDWARDS [facility] Comment on above: Order Comment: Specimen Type: ARTERIAL B LOOD SPECIMENOrdering Facility: [facility] Address: [address] [place], [place] [address] Performed By: #### A LLBG ####[facility] LABCLIA [id number] [address] [address] [place] 10-12-2024 15:58-0400 Heart rate 109 /min Dr. Rolan Romero DO Work Phone: [facility] 10-12-2024 15:58-0400 Inhaled oxygen flow rate 3 L/min Dr. Rolan Romero DO Work Phone: [facility] 10-12-2024 15:58-0400 Respiratory rate 26 /min Dr. Rolan Romero DO Work Phone: 0(729)067-983929 [place] [address] 10-12-2024 15:58-0400 SaO2% (BldA) [Mass fraction] 97 % Dr. Rolan Romero DO Work Phone: 7(661)674-276029 [place] [address] 10-12-2024 15:51-0400 Body temperature 98.9 [degF] Dr. Rolan Romero DO Work Phone: 3(283)996-133229 [place] [address] 10-12-2024 15:51-0400 Diastolic blood pressure 94 mm[Hg] Dr. Rolan Romero DO Work Phone: [facility] 10-12-2024 15:51-0400 Systolic blood pressure 124 mm[Hg] Dr. Rolan Romero DO Work Phone: [facility] 10-12-2024 09:49-0400 Body height 177.[address] Rolan Romero DO Work Phone: [facility] 10-12-2024 09:49-0400 Body mass index (BMI) [Ratio] 21.8 kg/m2 Dr. Rolan Romero DO Work Phone: [facility] 10-12-2024 09:49-0400 Body weight [address] Rolan Romero DO Work Phone: 5(993)092-770529 [place] [address] 10-10-2024 11:34-0400 Body mass index (BMI) [Ratio] 20.7 kg/m2 Dr. Rolan Romero DO Work Phone: 9(643)256-013916 [place] [address] 10-10-2024 11:34-0400 Body weight 65.[address] Rolan Romero DO Work Phone: 8(504)305-634516 [place] [address] 10-10-2024 11:34-0400 Diastolic blood pressure 87 mm[Hg] Dr. Rolan Romero DO Work Phone: 6(096)328-858216 [place] [address] 10-10-2024 11:34-0400 Heart rate 104 /min Dr. Rolan Romero DO Work Phone: 6(144)296-885016 [place] [address] 10-10-2024 11:34-0400 Respiratory rate 18 /min Dr. Rolan Romero DO Work Phone: 6(295)667-945816 [place] [address] 10-10-2024 11:34-0400 SaO2% (BldA) [Mass fraction] 94 % Dr. Rolan Romero DO Work Phone: 5(285)749-642316 [place] [address] 10-10-2024 11:34-0400 Systolic blood pressure 155 mm[Hg] Dr. Rolan Romero DO Work Phone: 9(066)526-685716 [place] [address] 10-06-2024 15:09-0400 Body temperature 96.7 [degF] Dr. Rolan Romero DO Work Phone: 0(508)782-451329 [place] [address] 10-06-2024 15:09-0400 Diastolic blood pressure 111 mm[Hg] Dr. Rolan Romero DO Work Phone: 9(243)027-136129 [place] [address] 10-06-2024 15:09-0400 Heart rate 103 /min Dr. Rolan Romero DO Work Phone: 3(275)699-249129 [place] [address] 10-06-2024 15:09-0400 Respiratory rate 20 /min Dr. Rolan Romero DO Work Phone: 9(191)441-593416 [place] [address] 10-06-2024 15:09-0400 SaO2% (BldA) [Mass fraction] 97 % Dr. Rolan Romero DO Work Phone: 7(529)885-956816 [place] [address] 10-06-2024 15:09-0400 Systolic blood pressure 149 mm[Hg] Dr. Rolan Romero DO Work Phone: 9(018)082-406816 [place] [address] 10-06-2024 14:29-0400 Inhaled oxygen concentration 2 % Dr. Rolan Romero DO Work Phone: 9(563)918-448216 [place] [address] 10-06-2024 12:43-0400 Inhaled oxygen flow rate 2 L/min Dr. Rolan Romero DO Work Phone: 2(536)867-268816 [place] [address] 10-06-2024 11:37-0400 Body height 177.[address] Rolan Romero DO Work Phone: 3(833)616-142216 [place] [address] 10-06-2024 11:37-0400 Body mass index (BMI) [Ratio] 22.6 kg/m2 Dr. Rolan Romero DO Work Phone: 8(835)015-685816 [place] [address] 10-06-2024 11:37-0400 Body weight 71.[address] Rolan Romero DO Work Phone: 7(746)247-267916 [place] [address] 09-28-2024 13:41-0400 Body height 177.[address] Rolan Romero DO Work Phone: 1(590)351-214816 [place] [address] 09-28-2024 13:41-0400 Body mass index (BMI) [Ratio] 20.2 kg/m2 Dr. Rolan Romero DO Work Phone: 2(388)064-615316 [place] [address] 09-28-2024 13:41-0400 Body weight 63.[address] Rolan Romero DO Work Phone: 8(068)886-884516 [place] [address] 09-28-2024 13:41-0400 Diastolic blood pressure 98 mm[Hg] Dr. Rolan Romero DO Work Phone: 1(673)037-054829 [place] [address] 09-28-2024 13:41-0400 Heart rate 106 /min Dr. Rolan Romero DO Work Phone: 7(749)538-304029 [place] [address] 09-28-2024 13:41-0400 Respiratory rate 18 /min Dr. Rolan Romero DO Work Phone: 7(221)099-675329 [place] [address] 09-28-2024 13:41-0400 SaO2% (BldA) [Mass fraction] 94 % Dr. Rolan Romero DO Work Phone: 8(108)141-044629 [place] [address] 09-28-2024 13:41-0400 Systolic blood pressure 137 mm[Hg] Dr. Rolan Romero DO Work Phone: 9(497)241-872529 [place] [address] 09-04-2024 15:54-0400 Heart rate 86 /min Dr. Rolan Romero DO Work Phone: 6(555)854-493429 [place] [address] 09-04-2024 15:54-0400 Respiratory rate 17 /min Dr. Rolan Romero DO Work Phone: 8(393)546-756529 [place] [address] 09-04-2024 15:40-0400 Body temperature 97.3 [degF] Dr. Rolan Romero DO Work Phone: 7(527)627-968029 [place] [address] 09-04-2024 15:40-0400 Diastolic blood pressure 88 mm[Hg] Dr. Rolan Romero DO Work Phone: 3(127)275-843729 [place] [address] 09-04-2024 15:40-0400 Inhaled oxygen flow rate 2 L/min Dr. Rolan Romero DO Work Phone: 9(958)239-958029 [place] [address] 09-04-2024 15:40-0400 SaO2% (BldA) [Mass fraction] 95 % Dr. Rolan Romero DO Work Phone: 6(789)112-017329 [place] [address] 09-04-2024 15:40-0400 Systolic blood pressure 118 mm[Hg] Dr. Rolan Romero DO Work Phone: 9(291)581-244629 [place] [address] 09-04-2024 11:18-0400 Body weight 69.[address] Rolan Romero DO Work Phone: 7(482)509-412416 [place] [address] 09-04-2024 03:53-0400 Body mass index (BMI) [Ratio] 21.4 kg/m2 Dr. Rolan Romero DO Work Phone: 3(697)115-658116 [place] [address] 08-30-2024 10:09-0400 Inhaled oxygen concentration 31 % Dr. Rolan Romero DO Work Phone: 0(900)189-894316 [place] [address] 08-29-2024 00:00-0400 Body temperature 97.8 [degF] Dr. Rolan Romero DO Work Phone: 7(962)006-606416 [place] [address] 08-29-2024 00:00-0400 Diastolic blood pressure 99 mm[Hg] Dr. Rolan Romero DO Work Phone: 1(404)480-091329 [place] [address] 08-29-2024 00:00-0400 Heart rate 108 /min Dr. Rolan Romero DO Work Phone: 2(563)290-003129 [place] [address] 08-29-2024 00:00-0400 Respiratory rate 18 /min Dr. Rolan Romero DO Work Phone: 8(103)669-784229 [place] [address] 08-29-2024 00:00-0400 SaO2% (BldA) [Mass fraction] 96 % Dr. Rolan Romero DO Work Phone: 2(072)296-977429 [place] [address] 08-29-2024 00:00-0400 Systolic blood pressure 130 mm[Hg] Dr. Rolan Romero DO Work Phone: 1(691)548-821329 [place] [address] 08-28-2024 21:27-0400 Inhaled oxygen concentration 40 % Dr. Rolan Romero DO Work Phone: [facility] 08-28-2024 21:27-0400 Inhaled oxygen flow rate 8 L/min Dr. Rolan Romero DO Work Phone: [facility] 08-28-2024 17:46-0400 Body height 180.[address] Rolan Romero DO Work Phone: [facility] 08-28-2024 17:46-0400 Body mass index (BMI) [Ratio] 20.4 kg/m2 Dr. Rolan Romero DO Work Phone: [facility] 08-28-2024 17:46-0400 Body weight 66.[address] Rolan Romero DO Work Phone: [facility] 08-03-2024 08:48-0400 Heart rate 86 /min No Primary Care Physician [facility] 08-03-2024 08:46-0400 Body temperature 97.7 [degF] No Primary Care Physician [facility] 08-03-2024 08:46-0400 Diastolic blood pressure 98 mm[Hg] No Primary Care Physician [facility] 08-03-2024 08:46-0400 Respiratory rate 16 /min No Primary Care Physician [facility] 08-03-2024 08:46-0400 SaO2% (BldA) [Mass fraction] 97 % No Primary Care Physician [facility] 08-03-2024 08:46-0400 Systolic blood pressure 127 mm[Hg] No Primary Care Physician [facility] 08-03-2024 05:38-0400 Body mass index (BMI) [Ratio] 20.6 kg/m2 No Primary Care Physician [facility] 08-03-2024 05:38-0400 Body weight 67 kg No Primary Care Physician [facility] 08-02-2024 11:29-0400 Body height 180.34 cm No Primary Care Physician [facility] 08-01-2024 21:00-0400 Body temperature 97.9 [degF] No Primary Care Physician [facility] 08-01-2024 21:00-0400 Diastolic blood pressure 76 mm[Hg] No Primary Care Physician [facility] 08-01-2024 21:00-0400 Heart rate 102 /min No Primary Care Physician [facility] 08-01-2024 21:00-0400 Respiratory rate 18 /min No Primary Care Physician [facility] 08-01-2024 21:00-0400 SaO2% (BldA) [Mass fraction] 99 % No Primary Care Physician [facility] 08-01-2024 21:00-0400 Systolic blood pressure 109 mm[Hg] No Primary Care Physician [facility] 08-01-2024 20:30-0400 Inhaled oxygen flow rate 2 L/min No Primary Care Physician [facility] 08-01-2024 19:38-0400 Body mass index (BMI) [Ratio] 21.7 kg/m2 No Primary Care Physician [facility] 08-01-2024 19:38-0400 Body weight 70.7 kg No Primary Care Physician [facility] 08-01-2024 12:33-0400 Body height 180.34 cm No Primary Care Physician [facility] 07-14-2024 09:45-0400 Heart rate 79 /min No Primary Care Physician [facility] 07-14-2024 07:55-0400 Body temperature 98.7 [degF] No Primary Care Physician [facility] 07-14-2024 07:55-0400 Diastolic blood pressure 84 mm[Hg] No Primary Care Physician [facility] 07-14-2024 07:55-0400 Respiratory rate 16 /min No Primary Care Physician [facility] 07-14-2024 07:55-0400 SaO2% (BldA) [Mass fraction] 95 % No Primary Care Physician [facility] 07-14-2024 07:55-0400 Systolic blood pressure 122 mm[Hg] No Primary Care Physician [facility] 07-14-2024 03:30-0400 Body mass index (BMI) [Ratio] 20.1 kg/m2 No Primary Care Physician [facility] 07-14-2024 03:30-0400 Body weight 65.6 kg No Primary Care Physician [facility] 07-12-2024 14:49-0400 Body height 180.34 cm No Primary Care Physician [facility] 07-11-2024 15:00-0400 Diastolic blood pressure 98 mm[Hg] No Primary Care Physician [facility] 07-11-2024 15:00-0400 Heart rate 80 /min No Primary Care Physician [facility] 07-11-2024 15:00-0400 Respiratory rate 18 /min No Primary Care Physician [facility] 07-11-2024 15:00-0400 SaO2% (BldA) [Mass fraction] 98 % No Primary Care Physician [facility] 07-11-2024 15:00-0400 Systolic blood pressure 148 mm[Hg] No Primary Care Physician [facility] 07-11-2024 13:51-0400 Body temperature 98.6 [degF] No Primary Care Physician [facility] 07-11-2024 11:28-0400 Body height 180.34 cm No Primary Care Physician [facility] 07-11-2024 11:28-0400 Body mass index (BMI) [Ratio] 20.2 kg/m2 No Primary Care Physician [facility] 07-11-2024 11:28-0400 Body weight 65.81 kg No Primary Care Physician [facility] 07-06-2024 11:41-0400 Body temperature 97.6 [degF] No Primary Care Physician [facility] 07-06-2024 11:41-0400 Diastolic blood pressure 81 mm[Hg] No Primary Care Physician [facility] 07-06-2024 11:41-0400 Heart rate 60 /min No Primary Care Physician [facility] 07-06-2024 11:41-0400 Respiratory rate 16 /min No Primary Care Physician [facility] 07-06-2024 11:41-0400 SaO2% (BldA) [Mass fraction] 93 % No Primary Care Physician [facility] 07-06-2024 11:41-0400 Systolic blood pressure 142 mm[Hg] No Primary Care Physician [facility] 07-06-2024 04:52-0400 Body mass index (BMI) [Ratio] 20.4 kg/m2 No Primary Care Physician [facility] 07-06-2024 04:52-0400 Body weight 66.4 kg No Primary Care Physician [facility] 07-04-2024 14:00-0400 Inhaled oxygen flow rate 2 L/min No Primary Care Physician [facility] 07-04-2024 11:32-0400 Body height 180.34 cm No Primary Care Physician [facility] 06-28-2024 14:10-0400 Body temperature 98 [degF] No Primary Care Physician [facility] 06-28-2024 14:10-0400 Diastolic blood pressure 75 mm[Hg] No Primary Care Physician [facility] 06-28-2024 14:10-0400 Heart rate 82 /min No Primary Care Physician [facility] 06-28-2024 14:10-0400 Respiratory rate 18 /min No Primary Care Physician [facility] 06-28-2024 14:10-0400 SaO2% (BldA) [Mass fraction] 97 % No Primary Care Physician [facility] 06-28-2024 14:10-0400 Systolic blood pressure 102 mm[Hg] No Primary Care Physician [facility] 06-28-2024 11:20-0400 Body height 180.34 cm No Primary Care Physician [facility] 06-28-2024 11:20-0400 Body weight 74.9 kg No Primary Care Physician [facility] 06-28-2024 09:00-0400 Inhaled oxygen flow rate 2 L/min No Primary Care Physician [facility] 06-28-2024 03:35-0400 Body mass index (BMI) [Ratio] 23.1 kg/m2 No Primary Care Physician [facility] 06-25-2024 22:00-0400 Diastolic blood pressure 86 mm[Hg] No Primary Care Physician [facility] 06-25-2024 22:00-0400 Heart rate 118 /min No Primary Care Physician [facility] 06-25-2024 22:00-0400 Respiratory rate 20 /min No Primary Care Physician [facility] 06-25-2024 22:00-0400 SaO2% (BldA) [Mass fraction] 94 % No Primary Care Physician [facility] 06-25-2024 22:00-0400 Systolic blood pressure 138 mm[Hg] No Primary Care Physician [facility] 06-25-2024 21:38-0400 Body temperature 98.5 [degF] No Primary Care Physician [facility] 06-25-2024 16:17-0400 Body height 180.34 cm No Primary Care Physician [facility] 06-25-2024 16:17-0400 Body mass index (BMI) [Ratio] 26.6 kg/m2 No Primary Care Physician [facility] 06-25-2024 16:17-0400 Body weight 86.5 kg No Primary Care Physician [facility] 04-12-2024 09:41-0500 Diastolic blood pressure 110 mm[Hg] Vandana Edwards Work Phone: [facility] 04-12-2024 09:41-0500 Systolic blood pressure 172 mm[Hg] Vandana Edwards Work Phone: [facility] 04-12-2024 09:14-0500 Body mass index (BMI) [Ratio] 20.08 kg/m2 Vandana Edwards Work Phone: [facility] 04-12-2024 09:14-0500 Body temperature 97.11 [degF] Vandana Edwards Work Phone: [facility] 04-12-2024 09:14-0500 Body weight 65.32 kg Vandana Edwards Work Phone: [facility] 04-12-2024 09:14-0500 Heart rate 60 /min Vnadana Edwards Work Phone: [facility] 04-12-2024 09:14-0500 SaO2% (BldA) [Mass fraction] 98 % Vandana Edwards Work Phone: [facility] 04-05-2024 13:20-0500 Diastolic blood pressure 75 mm[Hg] Phoebe Vazquez MD Work Phone: [facility] 04-05-2024 13:20-0500 Heart rate 65 /min Phoebe Vazquez MD Work Phone: [facility] 04-05-2024 13:20-0500 Respiratory rate 16 /min Phoebe Vazquez MD Work Phone: [facility] 04-05-2024 13:20-0500 SaO2% (BldA) [Mass fraction] 97 % Phoebe Vazquez MD Work Phone: [facility] 04-05-2024 13:20-0500 Systolic blood pressure 118 mm[Hg] Phoebe Vazquez MD Work Phone: [facility] 04-05-2024 13:00-0500 Body temperature 97 [degF] Phoebe Vazquez MD Work Phone: [facility] 04-05-2024 11:43-0500 Body height 180.3 cm Phoebe Vazquez MD Work Phone: [facility] 04-05-2024 11:43-0500 Body mass index (BMI) [Ratio] 20.22 kg/m2 Phoebe Vazquez MD Work Phone: [facility] 04-05-2024 11:43-0500 Body weight 65.77 kg Phoebe Vazquez MD Work Phone: [facility] 12-27-2023 14:12-0500 Body height 180.3 cm Marianna Queden SCREEN REPAIRER CRUSHER.PHYSICAL THERAPIST TECHNICIAN Work Phone: [facility] 12-27-2023 14:12-0500 Body mass index (BMI) [Ratio] 18.97 kg/m2 Marianna Queden SCREEN REPAIRER CRUSHER.PHYSICAL THERAPIST TECHNICIAN Work Phone: [facility] 12-27-2023 14:12-0500 Body temperature 97.81 [degF] Marianna Queden SCREEN REPAIRER CRUSHER.PHYSICAL THERAPIST TECHNICIAN Work Phone: [facility] 12-27-2023 14:12-0500 Body weight 61.69 kg Marianna Queden SCREEN REPAIRER CRUSHER.PHYSICAL THERAPIST TECHNICIAN Work Phone: [facility] 12-27-2023 14:12-0500 Diastolic blood pressure 70 mm[Hg] Marianna Queden SCREEN REPAIRER CRUSHER.PHYSICAL THERAPIST TECHNICIAN Work Phone: [facility] 12-27-2023 14:12-0500 Heart rate 75 /min Marianna Queden SCREEN REPAIRER CRUSHER.PHYSICAL THERAPIST TECHNICIAN Work Phone: [facility] 12-27-2023 14:12-0500 Respiratory rate 16 /min Marianna Queden SCREEN REPAIRER CRUSHER.PHYSICAL THERAPIST TECHNICIAN Work Phone: [facility] 12-27-2023 14:12-0500 SaO2% (BldA) [Mass fraction] 100 % Marianna Gomezden SCREEN REPAIRER CRUSHER.PHYSICAL THERAPIST TECHNICIAN Work Phone: [facility] 12-27-2023 14:12-0500 Systolic blood pressure 126 mm[Hg] Marianna Queden SCREEN REPAIRER CRUSHER.PHYSICAL THERAPIST TECHNICIAN Work Phone: [facility] 12-24-2023 10:38-0500 Body height 180.3 cm Susana Hritz SCREEN REPAIRER CRUSHER.PHYSICAL THERAPIST TECHNICIAN Work Phone: [facility] 12-24-2023 10:38-0500 Body mass index (BMI) [Ratio] 18.97 kg/m2 Susana Hritz SCREEN REPAIRER CRUSHER.PHYSICAL THERAPIST TECHNICIAN Work Phone: [facility] 12-24-2023 10:38-0500 Body weight 61.69 kg Susana Hritz SCREEN REPAIRER CRUSHER.PHYSICAL THERAPIST TECHNICIAN Work Phone: [facility] 12-24-2023 10:38-0500 Diastolic blood pressure 84 mm[Hg] Susana Hritz SCREEN REPAIRER CRUSHER.PHYSICAL THERAPIST TECHNICIAN Work Phone: [facility] 12-24-2023 10:38-0500 Heart rate 70 /min Susana Hritz SCREEN REPAIRER CRUSHER.PHYSICAL THERAPIST TECHNICIAN Work Phone: [facility] 12-24-2023 10:38-0500 Systolic blood pressure 132 mm[Hg] Susana Hritz SCREEN REPAIRER CRUSHER.PHYSICAL THERAPIST TECHNICIAN Work Phone: [facility] 11-15-2023 10:50-0400 Body height 177.8 cm Vandana Edwards Work Phone: [facility] 11-15-2023 10:50-0400 Body mass index (BMI) [Ratio] 18.94 kg/m2 Vandana Edwards Work Phone: [facility] 11-15-2023 10:50-0400 Body temperature 97.7 [degF] Vandana Edwards Work Phone: [facility] 11-15-2023 10:50-0400 Body weight 59.88 kg Vandana Edwards Work Phone: [facility] 11-15-2023 10:50-0400 Diastolic blood pressure 105 mm[Hg] Vandana Edwards Work Phone: [facility] 11-15-2023 10:50-0400 Heart rate 106 /min Vandana Edwards Work Phone: [facility] 11-15-2023 10:50-0400 SaO2% (BldA) [Mass fraction] 98 % Vandana Edwards Work Phone: [facility] 11-15-2023 10:50-0400 Systolic blood pressure 141 mm[Hg] Vandana Edwards Work Phone: [facility] 10-30-2023 17:46-0400 Blood Pressure Location ANN-MARIE DILLON DO [facility] 10-30-2023 17:46-0400 Blood Pressure Method ANN-MARIE DILLON DO [facility] 10-30-2023 17:46-0400 Diastolic Blood Pressure Non-Invasive 94 mm[Hg] ANN-MARIE DILLON DO [facility] 10-30-2023 17:46-0400 Heart rate 64 /min ANN-MARIE DILLON DO [facility] 10-30-2023 17:46-0400 Reason For Taking VItal Signs ANN-MARIE DILLON DO [facility] 10-30-2023 17:46-0400 Respiratory rate 18 /min ANN-MARIE DILLON DO [facility] 10-30-2023 17:46-0400 Systolic Blood Pressure Non-Invasive 167 mm[Hg] ANN-MARIE WILMA DO [facility] 10-30-2023 17:24-0400 Blood Pressure Location ANN-MARIE WILMA DO [facility] 10-30-2023 17:24-0400 Blood Pressure Method ANN-MARIE DILLON DO [facility] 10-30-2023 17:24-0400 Diastolic Blood Pressure Non-Invasive 100 mm[Hg] ANN-MARIE DILLON DO [facility] 10-30-2023 17:24-0400 Heart rate 85 /min ANN-MARIE DILLON DO [facility] 10-30-2023 17:24-0400 Reason For Taking VItal Signs ANN-MARIE DILLON DO [facility] 10-30-2023 17:24-0400 Respiratory rate 14 /min ANN-MARIE DILLON DO [facility] 10-30-2023 17:24-0400 Systolic Blood Pressure Non-Invasive 200 mm[Hg] ANN-MARIE DILLON DO [facility] 10-30-2023 15:15-0400 Blood Pressure Location ANN-MARIE DILLON DO [facility] 10-30-2023 15:15-0400 Blood Pressure Method ANN-MARIE DILLON DO [facility] 10-30-2023 15:15-0400 Body temperature 98.24 [degF] ANN-MARIE DILLON DO [facility] 10-30-2023 15:15-0400 Body weight 63.6 kg ANN-MARIE DILLON DO [facility] 10-30-2023 15:15-0400 Diastolic Blood Pressure Non-Invasive 92 mm[Hg] ANN-MARIE DILLON DO [facility] 10-30-2023 15:15-0400 Heart rate 73 /min ANN-MARIE DILLON DO [facility] 10-30-2023 15:15-0400 Respiratory rate 14 /min ANN-MARIE DILLON DO [facility] 10-30-2023 15:15-0400 Systolic Blood Pressure Non-Invasive 156 mm[Hg] ANN-MARIE DILLON DO [facility] 10-14-2023 11:05-0400 Body height 180.3 cm Marianna Queden SCREEN REPAIRER CRUSHER.PHYSICAL THERAPIST TECHNICIAN Work Phone: [facility] 10-14-2023 11:05-0400 Body mass index (BMI) [Ratio] 18.83 kg/m2 Marianna Queden SCREEN REPAIRER CRUSHER.PHYSICAL THERAPIST TECHNICIAN Work Phone: [facility] 10-14-2023 11:05-0400 Body temperature 97.59 [degF] Marianna Queden SCREEN REPAIRER CRUSHER.PHYSICAL THERAPIST TECHNICIAN Work Phone: [facility] 10-14-2023 11:05-0400 Body weight 61.24 kg Marianna Queden SCREEN REPAIRER CRUSHER.PHYSICAL THERAPIST TECHNICIAN Work Phone: [facility] 10-14-2023 11:05-0400 Diastolic blood pressure 70 mm[Hg] Marianna Queden SCREEN REPAIRER CRUSHER.PHYSICAL THERAPIST TECHNICIAN Work Phone: [facility] 10-14-2023 11:05-0400 Heart rate 60 /min Marianna Queden SCREEN REPAIRER CRUSHER.PHYSICAL THERAPIST TECHNICIAN Work Phone: [facility] 10-14-2023 11:05-0400 Respiratory rate 18 /min Marianna Queden SCREEN REPAIRER CRUSHER.PHYSICAL THERAPIST TECHNICIAN Work Phone: [facility] 10-14-2023 11:05-0400 SaO2% (BldA) [Mass fraction] 100 % Marianna Queden SCREEN REPAIRER CRUSHER.PHYSICAL THERAPIST TECHNICIAN Work Phone: [facility] 10-14-2023 11:05-0400 Systolic blood pressure 122 mm[Hg] Marianna Queden SCREEN REPAIRER CRUSHER.PHYSICAL THERAPIST TECHNICIAN Work Phone: [facility] 08-09-2023 13:11-0400 Body height 180.3 cm Marianna Jasonden SCREEN REPAIRER CRUSHER.PHYSICAL THERAPIST TECHNICIAN Work Phone: [facility] 08-09-2023 13:11-0400 Body mass index (BMI) [Ratio] 19.39 kg/m2 Marianna Queden SCREEN REPAIRER CRUSHER.PHYSICAL THERAPIST TECHNICIAN Work Phone: [facility] 08-09-2023 13:11-0400 Body temperature 99 [degF] Marianna Queden SCREEN REPAIRER CRUSHER.PHYSICAL THERAPIST TECHNICIAN Work Phone: [facility] 08-09-2023 13:11-0400 Body weight 63.05 kg Marianna Queden SCREEN REPAIRER CRUSHER.PHYSICAL THERAPIST TECHNICIAN Work Phone: [facility] 08-09-2023 13:11-0400 Diastolic blood pressure 76 mm[Hg] Marianna Queden SCREEN REPAIRER CRUSHER.PHYSICAL THERAPIST TECHNICIAN Work Phone: [facility] 08-09-2023 13:11-0400 Heart rate 98 /min Marianna Queden SCREEN REPAIRER CRUSHER.PHYSICAL THERAPIST TECHNICIAN Work Phone: [facility] 08-09-2023 13:11-0400 SaO2% (BldA) [Mass fraction] 99 % Marianna Queden SCREEN REPAIRER CRUSHER.PHYSICAL THERAPIST TECHNICIAN Work Phone: [facility] 08-09-2023 13:11-0400 Systolic blood pressure 122 mm[Hg] Marianna Jasonden SCREEN REPAIRER CRUSHER.PHYSICAL THERAPIST TECHNICIAN Work Phone: [facility] 05-20-2023 13:15-0400 Body temperature 97.7 [degF] ORDER FULFILLMENT SPECIALIST-C Andreas Pathak ORDER FULFILLMENT SPECIALIST Work Phone: [facility] 05-20-2023 13:15-0400 Diastolic blood pressure 73 mm[Hg] ORDER FULFILLMENT SPECIALIST-C Andreas Pathak ORDER FULFILLMENT SPECIALIST Work Phone: [facility] 05-20-2023 13:15-0400 Heart rate 74 /min ORDER FULFILLMENT SPECIALIST-C Andreas Pathak ORDER FULFILLMENT SPECIALIST Work Phone: [facility] 05-20-2023 13:15-0400 Respiratory rate 16 /min ORDER FULFILLMENT SPECIALIST-C Andreas Pathak ORDER FULFILLMENT SPECIALIST Work Phone: [facility] 05-20-2023 13:15-0400 SaO2% (BldA) [Mass fraction] 96 % ORDER FULFILLMENT SPECIALIST-C Andreas Pathak ORDER FULFILLMENT SPECIALIST Work Phone: [facility] 05-20-2023 13:15-0400 Systolic blood pressure 107 mm[Hg] ORDER FULFILLMENT SPECIALIST-C Andreas Pathak ORDER FULFILLMENT SPECIALIST Work Phone: [facility] 05-20-2023 06:00-0400 Body mass index (BMI) [Ratio] 25.8 kg/m2 ORDER FULFILLMENT SPECIALIST-C Andreas Pathak ORDER FULFILLMENT SPECIALIST Work Phone: [facility] 05-20-2023 06:00-0400 Body weight 84.1 kg ORDER FULFILLMENT SPECIALIST-C Andreas Pathak ORDER FULFILLMENT SPECIALIST Work Phone: [facility] 05-18-2023 11:01-0400 Body height 180.34 cm ORDER FULFILLMENT SPECIALIST-C Andreas Pathak ORDER FULFILLMENT SPECIALIST Work Phone: [facility] 05-18-2023 07:20-0400 Inhaled oxygen flow rate 2 L/min ORDER FULFILLMENT SPECIALIST-C Andreas Pathak ORDER FULFILLMENT SPECIALIST Work Phone: [facility] 05-15-2023 11:10-0400 Inhaled oxygen concentration 25 % ORDER FULFILLMENT SPECIALIST-C Andreas Pathak ORDER FULFILLMENT SPECIALIST Work Phone: [facility] 05-09-2023 21:45-0400 Diastolic blood pressure 66 mm[Hg] ORDER FULFILLMENT SPECIALIST-C Andreas Pathak ORDER FULFILLMENT SPECIALIST Work Phone: [facility] 05-09-2023 21:45-0400 Heart rate 116 /min ORDER FULFILLMENT SPECIALIST-C Andreas Pathak ORDER FULFILLMENT SPECIALIST Work Phone: [facility] 05-09-2023 21:45-0400 Respiratory rate 20 /min ORDER FULFILLMENT SPECIALIST-C Andreas Pathak ORDER FULFILLMENT SPECIALIST Work Phone: [facility] 05-09-2023 21:45-0400 SaO2% (BldA) [Mass fraction] 94 % ORDER FULFILLMENT SPECIALIST-C Andreas Pathak ORDER FULFILLMENT SPECIALIST Work Phone: [facility] 05-09-2023 21:45-0400 Systolic blood pressure 84 mm[Hg] ORDER FULFILLMENT SPECIALIST-C Andreas Pathak ORDER FULFILLMENT SPECIALIST Work Phone: [facility] 05-09-2023 21:44-0400 Body temperature 97.7 [degF] ORDER FULFILLMENT SPECIALIST-C Andreas Pathak ORDER FULFILLMENT SPECIALIST Work Phone: [facility] 05-09-2023 21:44-0400 Inhaled oxygen flow rate 2 L/min ORDER FULFILLMENT SPECIALIST-C Andreas Pathak ORDER FULFILLMENT SPECIALIST Work Phone: [facility] 05-09-2023 13:31-0400 Body height 180.34 cm ORDER FULFILLMENT SPECIALIST-C Andreas Pathak ORDER FULFILLMENT SPECIALIST Work Phone: [facility] 05-09-2023 13:31-0400 Body mass index (BMI) [Ratio] 23.8 kg/m2 ORDER FULFILLMENT SPECIALIST-C Andreas Pathak ORDER FULFILLMENT SPECIALIST Work Phone: [facility] 05-09-2023 13:31-0400 Body weight 77.4 kg ORDER FULFILLMENT SPECIALIST-C Andreas Pathak ORDER FULFILLMENT SPECIALIST Work Phone: [facility] 04-27-2023 08:51-0400 Body temperature 98.8 [degF] ORDER FULFILLMENT SPECIALIST-C Andreas Pathak ORDER FULFILLMENT SPECIALIST Work Phone: [facility] 04-27-2023 08:51-0400 Diastolic blood pressure 78 mm[Hg] ORDER FULFILLMENT SPECIALIST-C Andreas Pathak ORDER FULFILLMENT SPECIALIST Work Phone: [facility] 04-27-2023 08:51-0400 Heart rate 98 /min ORDER FULFILLMENT SPECIALIST-C Andreas Pathak ORDER FULFILLMENT SPECIALIST Work Phone: [facility] 04-27-2023 08:51-0400 Respiratory rate 16 /min ORDER FULFILLMENT SPECIALIST-C Andreas Pathak ORDER FULFILLMENT SPECIALIST Work Phone: [facility] 04-27-2023 08:51-0400 SaO2% (BldA) [Mass fraction] 95 % ORDER FULFILLMENT SPECIALIST-C Andreas Pathak ORDER FULFILLMENT SPECIALIST Work Phone: [facility] 04-27-2023 08:51-0400 Systolic blood pressure 110 mm[Hg] ORDER FULFILLMENT SPECIALIST-C Andreas Pathak ORDER FULFILLMENT SPECIALIST Work Phone: [facility] 04-26-2023 14:44-0400 Body height 180.01 cm ORDER FULFILLMENT SPECIALIST-C Andreas Pathak ORDER FULFILLMENT SPECIALIST Work Phone: [facility] 04-26-2023 14:44-0400 Body weight 63.9 kg ORDER FULFILLMENT SPECIALIST-C Andreas Pathak ORDER FULFILLMENT SPECIALIST Work Phone: [facility] 04-22-2023 22:00-0400 Inhaled oxygen flow rate 2 L/min ORDER FULFILLMENT SPECIALIST-C Andreas Pathak ORDER FULFILLMENT SPECIALIST Work Phone: [facility] 04-20-2023 17:00-0400 Body mass index (BMI) [Ratio] 19.7 kg/m2 ORDER FULFILLMENT SPECIALIST-C Andreas Pathak ORDER FULFILLMENT SPECIALIST Work Phone: [facility] 04-20-2023 16:05-0400 Body temperature 98.2 [degF] ORDER FULFILLMENT SPECIALIST-C Andreas Pathak ORDER FULFILLMENT SPECIALIST Work Phone: [facility] 04-20-2023 16:05-0400 Diastolic blood pressure 80 mm[Hg] ORDER FULFILLMENT SPECIALIST-C Andreas Pathak ORDER FULFILLMENT SPECIALIST Work Phone: [facility] 04-20-2023 16:05-0400 Heart rate 117 /min ORDER FULFILLMENT SPECIALIST-C Andreas Pathak ORDER FULFILLMENT SPECIALIST Work Phone: [facility] 04-20-2023 16:05-0400 Respiratory rate 16 /min ORDER FULFILLMENT SPECIALIST-C Andreas Pathak ORDER FULFILLMENT SPECIALIST Work Phone: [facility] 04-20-2023 16:05-0400 SaO2% (BldA) [Mass fraction] 100 % ORDER FULFILLMENT SPECIALIST-C Andreas Pathak ORDER FULFILLMENT SPECIALIST Work Phone: [facility] 04-20-2023 16:05-0400 Systolic blood pressure 143 mm[Hg] ORDER FULFILLMENT SPECIALIST-C Andreas Pathak ORDER FULFILLMENT SPECIALIST Work Phone: [facility] 04-20-2023 11:29-0400 Body height 180.34 cm ORDER FULFILLMENT SPECIALIST-C Andreas Pathak ORDER FULFILLMENT SPECIALIST Work Phone: [facility] 04-20-2023 11:29-0400 Body mass index (BMI) [Ratio] 19.6 kg/m2 ORDER FULFILLMENT SPECIALIST-C Andreas Pathak ORDER FULFILLMENT SPECIALIST Work Phone: [facility] 04-20-2023 11:29-0400 Body weight 63.9 kg ORDER FULFILLMENT SPECIALIST-C Andreas Pathak ORDER FULFILLMENT SPECIALIST Work Phone: [facility] 03-19-2023 10:48-05[address] Blood Pressure Cuff Size DR MARIELY WAGNER MD [address] [place] [address] 03-19-2023 10:48-[address] MARIELY WAGNER MD [address] [place] [address] 03-19-2023 10:48-[address] MARIELY WAGNER MD [address] [place] [address] 03-19-2023 10:48-0500 Body temperature 97.34 [degF] DR MARIELY WAGNER MD [address] [place] [address] 03-19-2023 10:48-0500 Diastolic Blood Pressure Non-Invasive 94 mm[Hg] DR MARIELY WAGNER MD [facility] 03-19-2023 10:48-0500 Heart rate 90 /min DR MARIELY WAGNER MD [address] [place] [address] 03-19-2023 10:48-0500 Reason For Taking VItal Signs DR MARIELY WAGNER MD [address] [place] [address] 03-19-2023 10:48-0500 Respiratory rate 18 /min DR MARIELY WAGNER MD [address] [place] [address] 03-19-2023 10:48-0500 Systolic Blood Pressure Non-Invasive 143 mm[Hg] DR MARIELY WAGNER MD [address] [place] [address] 03-19-2023 08:11-0500 Heart rate 86 /min DR MARIELY WAGNER MD [facility] 03-19-2023 06:58-0500 Blood Pressure Cuff Size DR MARIELY WAGNER MD [facility] 03-19-2023 06:58-[address] MARIELY WAGNER MD [address] [place] [address] 03-19-2023 06:58-[address] MARIELY WAGNER MD [address] [place] [address] 03-19-2023 06:58-0500 Body temperature 97.7 [degF] DR MARIELY WAGNER MD [address] [place] [address] 03-19-2023 06:58-0500 Diastolic Blood Pressure Non-Invasive 91 mm[Hg] DR MARIELY WAGNER MD [address] [place] [address] 03-19-2023 06:58-0500 Heart rate 61 /min DR MARIELY WAGNER MD [address] [place] [address] 03-19-2023 06:58-0500 Reason For Taking VItal Signs DR MARIELY WAGNER MD [facility] 03-19-2023 06:58-0500 Respiratory rate 18 /min DR MARIELY WAGNER MD [address] [place] [address] 03-19-2023 06:58-0500 Systolic Blood Pressure Non-Invasive 146 mm[Hg] DR MARIELY WAGNER MD [address] [place] [address] 03-19-2023 04:49-0500 Blood Pressure Cuff Size DR MARIELY WAGNER MD [facility] 03-19-2023 04:49-[address] MARIELY WAGNER MD [facility] 03-19-2023 04:49-[address] MARIELY WAGNER MD [facility] 03-19-2023 04:49-0500 Body temperature 97.7 [degF] DR MARIELY WAGNER MD [address] [place] [address] 03-19-2023 04:49-0500 Diastolic Blood Pressure Non-Invasive 88 mm[Hg] DR MARIELY WAGNER MD [address] [place] [address] 03-19-2023 04:49-0500 Heart rate 65 /min DR MARIELY WAGNER MD [address] [place] [address] 03-19-2023 04:49-0500 Reason For Taking VItal Signs DR MARIELY WAGNER MD [address] [place] [address] 03-19-2023 04:49-0500 Respiratory rate 18 /min DR MARIELY WAGNER MD [address] [place] [address] 03-19-2023 04:49-0500 Systolic Blood Pressure Non-Invasive 120 mm[Hg] DR MARIELY WAGNER MD [address] [place] [address] 03-18-2023 23:28-0500 Heart rate 69 /min DR MARIELY WAGNER MD [address] [place] [address] 03-18-2023 18:42-0500 Heart rate 57 /min DR MARIELY WAGNER MD [address] [place] [address] 03-18-2023 16:45-0500 Heart rate 84 /min DR MARIELY WAGNER MD [address] [place] [address] 03-18-2023 10:40-0500 Heart rate 80 /min DR MARIELY WAGNER MD [address] [place] [address] 03-18-2023 04:01-0500 Mean blood pressure 105 mm[Hg] DR MARIELY WAGNER MD [address] [place] [address] 03-17-2023 11:11-0500 Heart rate 74 /min DR MARIELY WAGNER MD [facility] 03-16-2023 11:15-0500 Mean blood pressure 99 mm[Hg] DR MARIELY WAGNER MD [facility] 03-16-2023 10:51-0500 Mean blood pressure 111 mm[Hg] DR MARIELY WAGNER MD [facility] 03-15-2023 23:39-0500 Body height 180.[address] MARIELY WAGNER MD [facility] 03-15-2023 23:39-0500 Body weight 68.[address] MARIELY WAGNER MD [facility] 03-15-2023 23:39-0500 Body weight 21.13 kg/m2 DR MARIELY WAGNER MD [facility] 03-15-2023 10:50-0500 Body weight 68.[address] MARIELY WAGNER MD [facility] 11-01-2022 23:04-0400 Diastolic blood pressure 78 mm[Hg] [facility] 11-01-2022 23:04-0400 Heart rate 78 /min [facility] 11-01-2022 23:04-0400 Respiratory rate 18 /min [facility] 11-01-2022 23:04-0400 SaO2% (BldA) [Mass fraction] 95 % [facility] 11-01-2022 23:04-0400 Systolic blood pressure 123 mm[Hg] [facility] 11-01-2022 20:01-0400 Body height 177.8 cm [facility] 11-01-2022 20:01-0400 Body mass index (BMI) [Ratio] 20.3 kg/m2 [facility] 11-01-2022 20:01-0400 Body temperature 98.2 [degF] [facility] 11-01-2022 20:01-0400 Body weight 64.27 kg [facility] 10-15-2022 11:32-0400 Body height 180 cm ANDREAS Dooley CNP [facility] 10-15-2022 11:32-0400 Body weight 20.62 kg/m2 ANDREAS PATHAK SCREEN REPAIRER CRUSHER - PHYSICAL THERAPIST TECHNICIAN [facility] 10-15-2022 11:32-0400 Body weight 66.8 kg ANDREAS PATHAK SCREEN REPAIRER CRUSHER - PHYSICAL THERAPIST TECHNICIAN [facility] Comment on above: Result Comment: 160# about 2-3 months ag o pt reports d/t diarrhea and GI problems (pt currently figuring this out with PCP and getting tests ran) 10-05-2022 16:00-0400 Diastolic Blood Pressure Non-Invasive 103 1 MAGDALENA GODDARDWanderlust [facility] 10-05-2022 16:00-0400 Heart rate 69 /min MAGDALENA GODDARDT [employer] [facility] 10-05-2022 16:00-0400 Systolic Blood Pressure Non-Invasive 134 1 MAGDALENA GODDARDT [employer] [facility] 10-05-2022 15:30-0400 Diastolic Blood Pressure Non-Invasive 93 1 MAGDALENA NUNNSalesconxT [employer] [facility] 10-05-2022 15:30-0400 Heart rate 72 /min MAGDALENA GODDARDT [employer] [facility] 10-05-2022 15:30-0400 Respiratory rate 16 /min MAGDALENA GODDARDT [employer] [facility] 10-05-2022 15:30-0400 Systolic Blood Pressure Non-Invasive 149 1 MAGDALENA GODDARDT [employer] [facility] 10-05-2022 15:00-0400 Diastolic Blood Pressure Non-Invasive 118 1 MAGDALENA GODDARDT [employer] [facility] 10-05-2022 15:00-0400 Systolic Blood Pressure Non-Invasive 145 1 MAGDALENA NICKERSON [employer] [facility] 10-05-2022 14:12-0400 Blood Pressure Location MAGDALENA NICKERSON DO [facility] 10-05-2022 14:12-0400 Blood Pressure Method MAGDALENA NICKERSON [facility] 10-05-2022 13:41-0400 Body temperature 97.88 [degF] MAGDALENA NICKERSON [facility] 10-05-2022 13:41-0400 Heart rate 99 /min MAGDALENA NICKERSON [facility] 07-21-2022 00:00-0400 Diastolic blood pressure 94 mm[Hg] [facility] 07-21-2022 00:00-0400 Heart rate 79 /min [facility] 07-21-2022 00:00-0400 Respiratory rate 18 /min [facility] 07-21-2022 00:00-0400 SaO2% (BldA) [Mass fraction] 94 % [facility] 07-21-2022 00:00-0400 Systolic blood pressure 144 mm[Hg] [facility] 07-20-2022 19:10-0400 Body mass index (BMI) [Ratio] 21.5 kg/m2 [facility] 07-20-2022 19:10-0400 Body temperature 96.7 [degF] [facility] 07-20-2022 19:10-0400 Body weight 69.9 kg [facility] 05-13-2022 20:38-0400 Body temperature 98.24 [degF] DR MERRICK SINGH DO [facility] 05-13-2022 20:38-0400 Diastolic Blood Pressure Non-Invasive [address] MERRICK SINGH DO [facility] 05-13-2022 20:38-0400 Heart rate 106 /min DR MERRICK SINGH DO [facility] 05-13-2022 20:38-0400 Respiratory rate 18 /min DR MERRICK SINGH DO [facility] 05-13-2022 20:38-0400 Systolic Blood Pressure Non-Invasive [address] MERRICK SINGH DO [facility] 05-13-2022 19:30-0400 Diastolic Blood Pressure Non-Invasive [address] MERRICK SINGH DO [facility] 05-13-2022 19:30-0400 Heart rate 75 /min DR MERRICK SINGH DO [facility] 05-13-2022 19:30-0400 Respiratory rate 18 /min DR MERRICK SINGH DO [facility] 05-13-2022 19:30-0400 Systolic Blood Pressure Non-Invasive [address] MERRICK SINGH DO [facility] 05-13-2022 17:35-[address] MERRICK SINGH DO [facility] 05-13-2022 17:35-[address] MERRICK SINGH DO [facility] 05-13-2022 17:35-0400 Body temperature 98.42 [degF] DR MERRICK SINGH DO [facility] 05-13-2022 17:35-0400 Diastolic Blood Pressure Non-Invasive [address] MERRICK SINGH DO [facility] 05-13-2022 17:35-0400 Heart rate 89 /min DR MERRICK SINGH DO [facility] 05-13-2022 17:35-0400 Respiratory rate 18 /min DR MERRICK SINGH DO [facility] 05-13-2022 17:35-0400 Systolic Blood Pressure Non-Invasive [address] MERRICK SINGH DO [facility] 05-13-2022 17:33-0400 Body temperature 98.42 [degF] DR MERRICK SINGH DO [facility] 03-24-2022 08:25-0500 Body temperature 97.5 [degF] ORDER FULFILLMENT SPECIALIST-C Andreas Pathak ORDER FULFILLMENT SPECIALIST Work Phone: [facility] 03-24-2022 08:25-0500 Diastolic blood pressure 76 mm[Hg] ORDER FULFILLMENT SPECIALIST-C Andreas Pathak ORDER FULFILLMENT SPECIALIST Work Phone: [facility] 03-24-2022 08:25-0500 Heart rate 66 /min ORDER FULFILLMENT SPECIALIST-C Andreas Pathak ORDER FULFILLMENT SPECIALIST Work Phone: [facility] 03-24-2022 08:25-0500 Respiratory rate 16 /min ORDER FULFILLMENT SPECIALIST-C Andreas Pathak ORDER FULFILLMENT SPECIALIST Work Phone: [facility] 03-24-2022 08:25-0500 SaO2% (BldA) [Mass fraction] 95 % ORDER FULFILLMENT SPECIALIST-C Andreas Pathak ORDER FULFILLMENT SPECIALIST Work Phone: [facility] 03-24-2022 08:25-0500 Systolic blood pressure 127 mm[Hg] ORDER FULFILLMENT SPECIALIST-C Andreas Pathak ORDER FULFILLMENT SPECIALIST Work Phone: [facility] 03-22-2022 10:11-0500 Body height 180.34 cm ORDER FULFILLMENT SPECIALIST-C Andreas Pathak ORDER FULFILLMENT SPECIALIST Work Phone: [facility] 03-22-2022 10:11-0500 Body weight 62.3 kg ORDER FULFILLMENT SPECIALIST-C Andreas Pathak ORDER FULFILLMENT SPECIALIST Work Phone: [facility] 03-21-2022 19:44-0500 Body mass index (BMI) [Ratio] 19.1 kg/m2 ORDER FULFILLMENT SPECIALIST-C Andreas Pathak ORDER FULFILLMENT SPECIALIST Work Phone: [facility] 03-21-2022 18:15-0500 Body temperature 98.5 [degF] ORDER FULFILLMENT SPECIALIST-C Andreas Camargokins ORDER FULFILLMENT SPECIALIST Work Phone: [facility] 03-21-2022 18:15-0500 Diastolic blood pressure 99 mm[Hg] ORDER FULFILLMENT SPECIALIST-C Andreas Pathak ORDER FULFILLMENT SPECIALIST Work Phone: [facility] 03-21-2022 18:15-0500 Heart rate 86 /min ORDER FULFILLMENT SPECIALIST-C Andreas Pathak ORDER FULFILLMENT SPECIALIST Work Phone: [facility] 03-21-2022 18:15-0500 Respiratory rate 18 /min ORDER FULFILLMENT SPECIALIST-C Andreas Pathak ORDER FULFILLMENT SPECIALIST Work Phone: [facility] 03-21-2022 18:15-0500 SaO2% (BldA) [Mass fraction] 100 % ORDER FULFILLMENT SPECIALIST-C Andreas Pathak ORDER FULFILLMENT SPECIALIST Work Phone: [facility] 03-21-2022 18:15-0500 Systolic blood pressure 159 mm[Hg] ORDER FULFILLMENT SPECIALIST-C Andreas Pathak ORDER FULFILLMENT SPECIALIST Work Phone: [facility] 03-21-2022 17:43-0500 Body height 180.34 cm ORDER FULFILLMENT SPECIALIST-C Andreas Pathak ORDER FULFILLMENT SPECIALIST Work Phone: [facility] 03-21-2022 17:43-0500 Body mass index (BMI) [Ratio] 20.9 kg/m2 ORDER FULFILLMENT SPECIALIST-C Andreas Pathak ORDER FULFILLMENT SPECIALIST Work Phone: [facility] 03-21-2022 17:43-0500 Body weight 68.03 kg ORDER FULFILLMENT SPECIALIST-C Andreas Pathak ORDER FULFILLMENT SPECIALIST Work Phone: [facility] 02-04-2022 13:17-0500 Body temperature 98.3 [degF] ORDER FULFILLMENT SPECIALIST-C Andreas Pathak ORDER FULFILLMENT SPECIALIST Work Phone: [facility] 02-04-2022 13:17-0500 Diastolic blood pressure 92 mm[Hg] ORDER FULFILLMENT SPECIALIST-C Andreas Luxpkins ORDER FULFILLMENT SPECIALIST Work Phone: [facility] 02-04-2022 13:17-0500 Heart rate 102 /min ORDER FULFILLMENT SPECIALIST-C Andreas Luxpkins ORDER FULFILLMENT SPECIALIST Work Phone: [facility] 02-04-2022 13:17-0500 Respiratory rate 18 /min ORDER FULFILLMENT SPECIALIST-C Andreas Luxpkins ORDER FULFILLMENT SPECIALIST Work Phone: [facility] 02-04-2022 13:17-0500 SaO2% (BldA) [Mass fraction] 100 % ORDER FULFILLMENT SPECIALIST-C Andreas Luxpkins ORDER FULFILLMENT SPECIALIST Work Phone: [facility] 02-04-2022 13:17-0500 Systolic blood pressure 121 mm[Hg] ORDER FULFILLMENT SPECIALIST-C Andreas Luxpkins ORDER FULFILLMENT SPECIALIST Work Phone: [facility] 02-04-2022 03:34-0500 Body weight 70 kg ORDER FULFILLMENT SPECIALIST-C Andreas Luxpkins ORDER FULFILLMENT SPECIALIST Work Phone: [facility] 02-02-2022 11:36-0500 Body height 180.34 cm ORDER FULFILLMENT SPECIALIST-C Andreas Luxpkins ORDER FULFILLMENT SPECIALIST Work Phone: [facility] Work Phone: 02-01-2022 21:44-0500 Body mass index (BMI) [Ratio] 20.2 kg/m2 ORDER FULFILLMENT SPECIALIST-C Andreas Luxpkins ORDER FULFILLMENT SPECIALIST Work Phone: [facility] 02-01-2022 21:00-0500 Body temperature 96.2 [degF] ORDER FULFILLMENT SPECIALIST-C Andreas Luxpkins ORDER FULFILLMENT SPECIALIST Work Phone: [facility] Work Phone: 02-01-2022 21:00-0500 Diastolic blood pressure 82 mm[Hg] ORDER FULFILLMENT SPECIALIST-C Andreas Woodruff ORDER FULFILLMENT SPECIALIST Work Phone: [facility] Work Phone: 02-01-2022 21:00-0500 Heart rate 128 /min ORDER FULFILLMENT SPECIALIST-C Andreas Woodruff ORDER FULFILLMENT SPECIALIST Work Phone: [facility] Work Phone: 02-01-2022 21:00-0500 Respiratory rate 13 /min ORDER FULFILLMENT SPECIALIST-C Andreas Pathak ORDER FULFILLMENT SPECIALIST Work Phone: [facility] Work Phone: 02-01-2022 21:00-0500 SaO2% (BldA) [Mass fraction] 100 % ORDER FULFILLMENT SPECIALIST-C Andreas Pathak ORDER FULFILLMENT SPECIALIST Work Phone: [facility] Work Phone: 02-01-2022 21:00-0500 Systolic blood pressure 117 mm[Hg] ORDER FULFILLMENT SPECIALIST-C Andreas Pathak ORDER FULFILLMENT SPECIALIST Work Phone: [facility] Work Phone: 02-01-2022 19:02-0500 Body height 180.34 cm ORDER FULFILLMENT SPECIALIST-C Andreas Pathak ORDER FULFILLMENT SPECIALIST Work Phone: [facility] Work Phone: 02-01-2022 19:02-0500 Body mass index (BMI) [Ratio] 21.5 kg/m2 ORDER FULFILLMENT SPECIALIST-C Andreas Pathak ORDER FULFILLMENT SPECIALIST Work Phone: [facility] Work Phone: 02-01-2022 19:02-0500 Body weight 70.1 kg ORDER FULFILLMENT SPECIALIST-C Andreas Pathak ORDER FULFILLMENT SPECIALIST Work Phone: [facility] Work Phone: 11-14-2021 09:51-0400 Heart rate 89 /min ORDER FULFILLMENT SPECIALIST-C Andreas Pathak ORDER FULFILLMENT SPECIALIST Work Phone: [facility] Work Phone: 11-14-2021 08:30-0400 Body temperature 98.5 [degF] ORDER FULFILLMENT SPECIALIST-C Andreas Pathak ORDER FULFILLMENT SPECIALIST Work Phone: [facility] Work Phone: 11-14-2021 08:30-0400 Diastolic blood pressure 72 mm[Hg] ORDER FULFILLMENT SPECIALIST-C Andreas Pathak ORDER FULFILLMENT SPECIALIST Work Phone: [facility] Work Phone: 11-14-2021 08:30-0400 Respiratory rate 16 /min ORDER FULFILLMENT SPECIALIST-C Andreas Luxpkins ORDER FULFILLMENT SPECIALIST Work Phone: [facility] Work Phone: 11-14-2021 08:30-0400 SaO2% (BldA) [Mass fraction] 100 % ORDER FULFILLMENT SPECIALIST-C Andreas Luxpkins ORDER FULFILLMENT SPECIALIST Work Phone: [facility] Work Phone: 11-14-2021 08:30-0400 Systolic blood pressure 121 mm[Hg] ORDER FULFILLMENT SPECIALIST-C Andreas Luxpkins ORDER FULFILLMENT SPECIALIST Work Phone: [facility] Work Phone: 11-12-2021 10:35-0400 Body weight 68.8 kg ORDER FULFILLMENT SPECIALIST-C Andreas Luxpkins ORDER FULFILLMENT SPECIALIST Work Phone: [facility] Work Phone: 11-11-2021 17:38-0400 Body mass index (BMI) [Ratio] 21.1 kg/m2 ORDER FULFILLMENT SPECIALIST-C Andreas Luxpkins ORDER FULFILLMENT SPECIALIST Work Phone: [facility] Work Phone: 11-08-2021 10:47-0400 Body temperature 98.6 [degF] ORDER FULFILLMENT SPECIALIST-C Andreas Luxpkins ORDER FULFILLMENT SPECIALIST Work Phone: [facility] Work Phone: 11-08-2021 10:47-0400 Diastolic blood pressure 95 mm[Hg] ORDER FULFILLMENT SPECIALIST-C Andreas Luxpkins ORDER FULFILLMENT SPECIALIST Work Phone: [facility] Work Phone: 11-08-2021 10:47-0400 Heart rate 82 /min ORDER FULFILLMENT SPECIALIST-C Andreas Woodruff ORDER FULFILLMENT SPECIALIST Work Phone: [facility] Work Phone: 11-08-2021 10:47-0400 Respiratory rate 16 /min ORDER FULFILLMENT SPECIALIST-C Andreas Zo ORDER FULFILLMENT SPECIALIST Work Phone: [facility] Work Phone: 11-08-2021 10:47-0400 SaO2% (BldA) [Mass fraction] 98 % ORDER FULFILLMENT SPECIALIST-C Andreas Pathak ORDER FULFILLMENT SPECIALIST Work Phone: [facility] Work Phone: 11-08-2021 10:47-0400 Systolic blood pressure 114 mm[Hg] ORDER FULFILLMENT SPECIALIST-C Andreas Pathak ORDER FULFILLMENT SPECIALIST Work Phone: [facility] Work Phone: 11-06-2021 10:33-0400 Body weight 69.4 kg ORDER FULFILLMENT SPECIALIST-C Andreas Pathak ORDER FULFILLMENT SPECIALIST Work Phone: [facility] Work Phone: 11-05-2021 20:28-0400 Body temperature 98 [degF] ORDER FULFILLMENT SPECIALIST-C Andreas Pathak ORDER FULFILLMENT SPECIALIST Work Phone: [facility] Work Phone: 11-05-2021 20:28-0400 Diastolic blood pressure 67 mm[Hg] ORDER FULFILLMENT SPECIALIST-C Andreas Pathak ORDER FULFILLMENT SPECIALIST Work Phone: [facility] Work Phone: 11-05-2021 20:28-0400 Heart rate 107 /min ORDER FULFILLMENT SPECIALIST-C Andreas Pathak ORDER FULFILLMENT SPECIALIST Work Phone: [facility] Work Phone: 11-05-2021 20:28-0400 Respiratory rate 18 /min ORDER FULFILLMENT SPECIALIST-C Andreas Pathak ORDER FULFILLMENT SPECIALIST Work Phone: [facility] Work Phone: 11-05-2021 20:28-0400 SaO2% (BldA) [Mass fraction] 97 % ORDER FULFILLMENT SPECIALIST-C Andreas Pathak ORDER FULFILLMENT SPECIALIST Work Phone: [facility] Work Phone: 11-05-2021 20:28-0400 Systolic blood pressure 116 mm[Hg] ORDER FULFILLMENT SPECIALIST-C Andreas Luxpkins ORDER FULFILLMENT SPECIALIST Work Phone: [facility] Work Phone: 11-05-2021 18:03-0400 Body mass index (BMI) [Ratio] 21.3 kg/m2 ORDER FULFILLMENT SPECIALIST-C Andreas Luxpkins ORDER FULFILLMENT SPECIALIST Work Phone: [facility] Work Phone: 11-05-2021 16:18-0400 Body height 180.34 cm ORDER FULFILLMENT SPECIALIST-C Andreas Luxpkins ORDER FULFILLMENT SPECIALIST Work Phone: [facility] Work Phone: 11-05-2021 16:18-0400 Body mass index (BMI) [Ratio] 24.4 kg/m2 ORDER FULFILLMENT SPECIALIST-C Andreas Woodruff ORDER FULFILLMENT SPECIALIST Work Phone: [facility] Work Phone: 11-05-2021 16:18-0400 Body weight 79.37 kg ORDER FULFILLMENT SPECIALIST-C Andreas Zo ORDER FULFILLMENT SPECIALIST Work Phone: [facility] Work Phone: 10-06-2021 23:34-0400 Diastolic blood pressure 76 mm[Hg] ORDER FULFILLMENT SPECIALIST-C Andreas Luxpkins ORDER FULFILLMENT SPECIALIST Work Phone: [facility] Work Phone: 10-06-2021 23:34-0400 Heart rate 100 /min ORDER FULFILLMENT SPECIALIST-C Andreas Luxpkins ORDER FULFILLMENT SPECIALIST Work Phone: [facility] Work Phone: 10-06-2021 23:34-0400 Respiratory rate 18 /min ORDER FULFILLMENT SPECIALIST-C Andreas Woodruff ORDER FULFILLMENT SPECIALIST Work Phone: [facility] Work Phone: 10-06-2021 23:34-0400 SaO2% (BldA) [Mass fraction] 95 % ORDER FULFILLMENT SPECIALIST-C Andreas Woodruff ORDER FULFILLMENT SPECIALIST Work Phone: [facility] Work Phone: 10-06-2021 23:34-0400 Systolic blood pressure 114 mm[Hg] ORDER FULFILLMENT SPECIALIST-C Andreas Zo ORDER FULFILLMENT SPECIALIST Work Phone: [facility] Work Phone: 10-06-2021 18:43-0400 Body temperature 98 [degF] ORDER FULFILLMENT SPECIALIST-C Andraes Pathak ORDER FULFILLMENT SPECIALIST Work Phone: [facility] Work Phone: 10-06-2021 12:22-0400 Body height 180.34 cm ORDER FULFILLMENT SPECIALIST-C Andreas Luxpkins ORDER FULFILLMENT SPECIALIST Work Phone: [facility] Work Phone: 10-06-2021 12:22-0400 Body mass index (BMI) [Ratio] 20.1 kg/m2 ORDER FULFILLMENT SPECIALIST-C Andreas Luxpkins ORDER FULFILLMENT SPECIALIST Work Phone: [facility] Work Phone: 10-06-2021 12:22-0400 Body weight 65.6 kg ORDER FULFILLMENT SPECIALIST-C Andreas Luxpkins ORDER FULFILLMENT SPECIALIST Work Phone: [facility] Work Phone: 09-30-2021 14:53-0400 Diastolic blood pressure 81 mm[Hg] ORDER FULFILLMENT SPECIALIST-C Andreas Luxpkins ORDER FULFILLMENT SPECIALIST Work Phone: [facility] Work Phone: 09-30-2021 14:53-0400 Heart rate 100 /min ORDER FULFILLMENT SPECIALIST-C Andreas Pathak ORDER FULFILLMENT SPECIALIST Work Phone: [facility] Work Phone: 09-30-2021 14:53-0400 Respiratory rate 18 /min ORDER FULFILLMENT SPECIALIST-C Andreas Luxpkins ORDER FULFILLMENT SPECIALIST Work Phone: [facility] Work Phone: 09-30-2021 14:53-0400 SaO2% (BldA) [Mass fraction] 97 % ORDER FULFILLMENT SPECIALIST-C Andreas Luxpkins ORDER FULFILLMENT SPECIALIST Work Phone: [facility] Work Phone: 09-30-2021 14:53-0400 Systolic blood pressure 112 mm[Hg] ORDER FULFILLMENT SPECIALIST-C Andreas Luxpkins ORDER FULFILLMENT SPECIALIST Work Phone: [facility] Work Phone: 09-30-2021 13:34-0400 Body height 180.34 cm ORDER FULFILLMENT SPECIALIST-C Andreas Luxpkins ORDER FULFILLMENT SPECIALIST Work Phone: [facility] Work Phone: 09-30-2021 13:34-0400 Body mass index (BMI) [Ratio] 21 kg/m2 ORDER FULFILLMENT SPECIALIST-C Andreas Luxpkins ORDER FULFILLMENT SPECIALIST Work Phone: [facility] Work Phone: 09-30-2021 13:34-0400 Body temperature 97.1 [degF] ORDER FULFILLMENT SPECIALIST-C Andreas Luxpkins ORDER FULFILLMENT SPECIALIST Work Phone: [facility] Work Phone: 09-30-2021 13:34-0400 Body weight 68.49 kg ORDER FULFILLMENT SPECIALIST-C Andreas Woodruff ORDER FULFILLMENT SPECIALIST Work Phone: [facility] Work Phone: 06-01-2021 09:42-0400 Diastolic blood pressure 86 mm[Hg] ORDER FULFILLMENT SPECIALIST-C Andreas Luxpkins ORDER FULFILLMENT SPECIALIST Work Phone: [facility] Work Phone: 06-01-2021 09:42-0400 Heart rate 67 /min ORDER FULFILLMENT SPECIALIST-C Andreas Luxpkins ORDER FULFILLMENT SPECIALIST Work Phone: [facility] Work Phone: 06-01-2021 09:42-0400 Systolic blood pressure 142 mm[Hg] ORDER FULFILLMENT SPECIALIST-C Andreas Zo ORDER FULFILLMENT SPECIALIST Work Phone: [facility] Work Phone: 06-01-2021 09:40-0400 Body temperature 98.4 [degF] ORDER FULFILLMENT SPECIALIST-C Andreas Zo ORDER FULFILLMENT SPECIALIST Work Phone: [facility] Work Phone: 06-01-2021 09:40-0400 Respiratory rate 18 /min ORDER FULFILLMENT SPECIALIST-C Andreas Zo ORDER FULFILLMENT SPECIALIST Work Phone: [facility] Work Phone: 06-01-2021 09:40-0400 SaO2% (BldA) [Mass fraction] 99 % ORDER FULFILLMENT SPECIALIST-C Andreas Pathka ORDER FULFILLMENT SPECIALIST Work Phone: [facility] Work Phone: 05-30-2021 11:48-0400 Body height 165.1 cm ORDER FULFILLMENT SPECIALIST-C Andreas Pathak ORDER FULFILLMENT SPECIALIST Work Phone: [facility] Work Phone: 05-30-2021 11:48-0400 Body weight 74.84 kg ORDER FULFILLMENT SPECIALIST-C Andreas Pathak ORDER FULFILLMENT SPECIALIST Work Phone: [facility] Work Phone: 05-29-2021 22:10-0400 Body mass index (BMI) [Ratio] 27.4 kg/m2 ORDER FULFILLMENT SPECIALIST-C Andreas Pathak ORDER FULFILLMENT SPECIALIST Work Phone: [facility] Work Phone: 05-29-2021 20:49-0400 Body temperature 98.3 [degF] ORDER FULFILLMENT SPECIALIST-C Andreas Pathak ORDER FULFILLMENT SPECIALIST Work Phone: [facility] Work Phone: 05-29-2021 20:49-0400 Diastolic blood pressure 79 mm[Hg] ORDER FULFILLMENT SPECIALIST-C Andreas Pathak ORDER FULFILLMENT SPECIALIST Work Phone: [facility] Work Phone: 05-29-2021 20:49-0400 Heart rate 115 /min ORDER FULFILLMENT SPECIALIST-C Andreas Pathak ORDER FULFILLMENT SPECIALIST Work Phone: [facility] Work Phone: 05-29-2021 20:49-0400 Respiratory rate 18 /min ORDER FULFILLMENT SPECIALIST-C Andreas Pathak ORDER FULFILLMENT SPECIALIST Work Phone: [facility] Work Phone: 05-29-2021 20:49-0400 SaO2% (BldA) [Mass fraction] 95 % ORDER FULFILLMENT SPECIALIST-C Andreas Pathak ORDER FULFILLMENT SPECIALIST Work Phone: [facility] Work Phone: 05-29-2021 20:49-0400 Systolic blood pressure 127 mm[Hg] ORDER FULFILLMENT SPECIALIST-C Andreas Pathak ORDER FULFILLMENT SPECIALIST Work Phone: [facility] Work Phone: 05-29-2021 19:09-0400 Body height 180.34 cm ORDER FULFILLMENT SPECIALIST-C Andreas Pathak ORDER FULFILLMENT SPECIALIST Work Phone: [facility] Work Phone: 05-29-2021 19:09-0400 Body mass index (BMI) [Ratio] 23 kg/m2 ORDER FULFILLMENT SPECIALIST-C Andreas Pathak ORDER FULFILLMENT SPECIALIST Work Phone: [facility] Work Phone: 05-29-2021 19:09-0400 Body weight 74.84 kg ORDER FULFILLMENT SPECIALIST-C Andreas Pathak ORDER FULFILLMENT SPECIALIST Work Phone: [facility] Work Phone: 05-22-2021 07:51-0400 Respiratory rate 16 /min ORDER FULFILLMENT SPECIALIST-C Andreas Pathak ORDER FULFILLMENT SPECIALIST Work Phone: [facility] Work Phone: 05-22-2021 06:30-0400 Body temperature 97.9 [degF] ORDER FULFILLMENT SPECIALIST-C Andreas Pathak ORDER FULFILLMENT SPECIALIST Work Phone: [facility] Work Phone: 05-22-2021 06:30-0400 Diastolic blood pressure 83 mm[Hg] ORDER FULFILLMENT SPECIALIST-C Andreas Pathak ORDER FULFILLMENT SPECIALIST Work Phone: [facility] Work Phone: 05-22-2021 06:30-0400 Heart rate 100 /min ORDER FULFILLMENT SPECIALIST-C Andreas Pathak ORDER FULFILLMENT SPECIALIST Work Phone: [facility] Work Phone: 05-22-2021 06:30-0400 SaO2% (BldA) [Mass fraction] 95 % ORDER FULFILLMENT SPECIALIST-C Andreas Pathak ORDER FULFILLMENT SPECIALIST Work Phone: [facility] Work Phone: 05-22-2021 06:30-0400 Systolic blood pressure 147 mm[Hg] ORDER FULFILLMENT SPECIALIST-C Andreas Pathak ORDER FULFILLMENT SPECIALIST Work Phone: [facility] Work Phone: 05-21-2021 18:28-0400 Body mass index (BMI) [Ratio] 24 kg/m2 ORDER FULFILLMENT SPECIALIST-C Andreas Pathak ORDER FULFILLMENT SPECIALIST Work Phone: [facility] Work Phone: 05-21-2021 18:28-0400 Body weight 74 kg ORDER FULFILLMENT SPECIALIST-C Andreas Pathak ORDER FULFILLMENT SPECIALIST Work Phone: [facility] Work Phone: 05-05-2021 14:31-0400 Diastolic blood pressure 96 mm[Hg] ORDER FULFILLMENT SPECIALIST-C Andreas Pathak ORDER FULFILLMENT SPECIALIST Work Phone: [facility] Work Phone: 05-05-2021 14:31-0400 Heart rate 87 /min ORDER FULFILLMENT SPECIALIST-C Andreas Pathak ORDER FULFILLMENT SPECIALIST Work Phone: [facility] Work Phone: 05-05-2021 14:31-0400 Respiratory rate 16 /min ORDER FULFILLMENT SPECIALIST-C Andreas Pathak ORDER FULFILLMENT SPECIALIST Work Phone: [facility] Work Phone: 05-05-2021 14:31-0400 SaO2% (BldA) [Mass fraction] 100 % ORDER FULFILLMENT SPECIALIST-C Andreas Pathak ORDER FULFILLMENT SPECIALIST Work Phone: [facility] Work Phone: 05-05-2021 14:31-0400 Systolic blood pressure 145 mm[Hg] ORDER FULFILLMENT SPECIALIST-C Andreas Luxpkins ORDER FULFILLMENT SPECIALIST Work Phone: [facility] Work Phone: 05-05-2021 13:48-0400 Body temperature 98.4 [degF] ORDER FULFILLMENT SPECIALIST-C Andreas Pathak ORDER FULFILLMENT SPECIALIST Work Phone: [facility] Work Phone: 05-04-2021 15:40-0400 Body height 180.34 cm ORDER FULFILLMENT SPECIALIST-C Andreas Pathak ORDER FULFILLMENT SPECIALIST Work Phone: [facility] Work Phone: 05-04-2021 15:40-0400 Body mass index (BMI) [Ratio] 22.3 kg/m2 ORDER FULFILLMENT SPECIALIST-C Andreas Pathak ORDER FULFILLMENT SPECIALIST Work Phone: [facility] Work Phone: 05-04-2021 15:40-0400 Body weight 72.5 kg ORDER FULFILLMENT SPECIALIST-C Andreas Pathak ORDER FULFILLMENT SPECIALIST Work Phone: [facility] Work Phone: 05-04-2021 15:36-0400 Body temperature 98 [degF] [facility] Work Phone: 05-04-2021 15:36-0400 Diastolic blood pressure 101 mm[Hg] [facility] Work Phone: 05-04-2021 15:36-0400 Heart rate 97 /min [facility] Work Phone: 05-04-2021 15:36-0400 Respiratory rate 18 /min [facility] Work Phone: 05-04-2021 15:36-0400 SaO2% (BldA) [Mass fraction] 99 % [facility] Work Phone: 05-04-2021 15:36-0400 Systolic blood pressure 157 mm[Hg] [facility] Work Phone: 05-04-2021 13:18-0400 Body height 180.34 cm [facility] Work Phone: 05-04-2021 13:18-0400 Body mass index (BMI) [Ratio] 23 kg/m2 [facility] Work Phone: 05-04-2021 13:18-0400 Body weight 74.84 kg [facility] Work Phone: 05-02-2021 15:49-0400 Diastolic blood pressure 92 mm[Hg] DR SHILPI BURNS MD [facility] 05-02-2021 15:49-0400 Heart rate 84 /min DR SHILPI BURNS MD [facility] 05-02-2021 15:49-0400 Respiratory rate 16 /min DR SHILPI BURNS MD [facility] 05-02-2021 15:49-0400 Systolic blood pressure 143 mm[Hg] DR SHILPI BURNS MD [facility] 05-02-2021 14:22-0400 Diastolic blood pressure 85 mm[Hg] DR SHILPI BURNS MD [facility] 05-02-2021 14:22-0400 Heart rate 87 /min DR SHILPI BURNS MD [facility] 05-02-2021 14:22-0400 Respiratory rate 16 /min DR SHILPI BURNS MD [facility] 05-02-2021 14:22-0400 Systolic blood pressure 152 mm[Hg] DR SHILPI BURNS MD [facility] 05-02-2021 13:50-0400 Diastolic blood pressure 95 mm[Hg] DR SHILPI BURNS MD [facility] 05-02-2021 13:50-0400 Heart rate 88 /min DR SHILPI BURNS MD [facility] 05-02-2021 13:50-0400 Mean blood pressure 112 mm[Hg] DR SHILPI BURNS MD [facility] 05-02-2021 13:50-0400 Respiratory rate 16 /min DR SHILPI BURNS MD [facility] 05-02-2021 13:50-0400 Systolic blood pressure 145 mm[Hg] DR SHILPI BURNS MD [facility] 05-02-2021 13:04-0400 Body temperature 98.6 [degF] DR SHILPI BURNS MD [facility] 05-02-2021 13:04-0400 Body weight 73.[address] SHILPI BURNS MD [facility] 05-02-2021 13:04-0400 Heart rate 120 /min DR SHILPI BURNS MD [facility] Encounters Encounter Date Encounter Type Care Provider Facility Start: 12-19-2024 End: 12-19-2024 Emergency department patient visit Sigrid Goodmannger [facility] Facility:[facility] Start: 12-09-2024 ambulatory Sigrid Jakub [facility] Faci lity:[facility] Start: 12-09-2024 End: 12-11-2024 Evaluation and management of inpatient Sigrid Jakub [facility] Facility:[facility] Start: 10-23-2024 End: 10-23-2024 ambulatory Talia Serrano APRN.PHYSICAL THERAPIST TECHNICIAN Work Phone: Cardiology Comment on above: TAVR Meeting Start: 10-20-2024 End: 10-20-2024 ambulatory Talia Serrano APRN.PHYSICAL THERAPIST TECHNICIAN Work Phone: Cardiology Comment on above: TAVR Schedule Start: 10-17-2024 End: 10-27-2024 Evaluation and management of inpatient PIPER PEARSON Facility:[facility] Start: 10-16-2024 ambulatory Sigrid Jakub [facility] Faci lity:[facility] Start: 10-12-2024 ambulatory Ashley Alvarado Facility :[facility] Start: 10-12-2024 End: 10-17-2024 Evaluation and management of inpatient Dr. Rolan Romero DO Work Phone: -Progressive Care Unit Start: 10-12-2024 Dr. Diana miranda MD -[facility] Work Phone: Start: 10-11-2024 ambulatory Sigrid Call [facility] Faci lity:[facility] Start: 10-10-2024 End: 10-10-2024 Heather Daley NP-Stephen -[facility] Work Phone: Start: 10-10-2024 End: 10-10-2024 ambulatory Sigrid Call [facility] Facility:[facility] Start: 10-06-2024 End: 10-06-2024 Dr. Rolan Romero DO Work Phone: -Emergency Department Work Phone: Start: 10-06-2024 End: 10-06-2024 Emergency department patient visit Dr. Rolan Romero DO Work Phone: -Emergency Department Start: 09-28-2024 End: 09-28-2024 Peggy BALDERAS -[facility] Work Phone: Start: 09-28-2024 End: 09-28-[address] Rolan Romero DO Work Phone: -[facility] Start: 09-18-2024 [facility] Start: 09-07[facility] Start: 09-04-2024 Dr. Lucas Frausto MD -[facility] Work Phone: Start: 09-03-2024 Dr. Lucas Frausto MD -[facility] Work Phone: Start: 09-02-2024 Dr. Lucas Frausto MD -[facility] Work Phone: Start: 09-01-2024 Antony Espitia DO -[facility] Start: 09-01-2024 Bernadette Pisano ORDER FULFILLMENT SPECIALIST-C -[facility] Start: 09-01-2024 Dr. Lucas Frausto MD -[facility] Work Phone: Start: 09-01-2024 Dr. Barry Sheehan DO -[facility] Start: 08-31-2024 Antony Espitia DO -[facility] Start: 08-31-2024 Dr. Lucas Frausto MD -[facility] Work Phone: Start: 08-31-2024 Dr. Barry Sheehan DO -[facility] Start: 08-30-2024 Bernadette Pisano ORDER FULFILLMENT SPECIALIST-C -[facility] Start: 08-30-2024 Dr. Lucas Frausto MD -[facility] Work Phone: Start: 08-29-2024 End: 09-04-2024 Evaluation and management of inpatient Dr. Rolan Romero DO Work Phone: -Progressive Care Unit Start: 08-29-2024 ambulatory Lucas Frausto Facility:[facility] Start: 08-29-2024 End: 09-04-2024 Dr. Jacky Vila MD -[facility] Care Unit Work Phone: Start: 08-13-2024 End: 08-14-2024 Refill Marianna A Queden SCREEN REPAIRER CRUSHER.PHYSICAL THERAPIST TECHNICIAN Work Phone: [facility] Comment on above: Refill Request Start: 08-03-2024 End: 08-04-2024 Refill Marianna A Queden SCREEN REPAIRER CRUSHER.PHYSICAL THERAPIST TECHNICIAN Work Phone: [facility] Comment on above: Refill Request Start: 08-03-2024 Dr. Iman palmer MD -[facility] Work Phone: Start: 08-02-2024 Suyapa BALDERAS [facility] Start: 08-02-2024 Dr. Valeriy rivers DO -[facility] Work Phone: Start: 08-01-2024 ambulatory Sigrid Call [facility] Faci lity:[facility] Start: 08-01-2024 End: 08-03-2024 Evaluation and management of inpatient No Primary Care Physician [facility] Work Phone: Start: 08-01-2024 End: 08-03-2024 Dr. Iman Aguayo MD -Progressive Care Unit Work Phone: Start: 07-20-2024 End: 07-20-2024 ambulatory No Primary Care Physician [facility] Work Phone: Start: 07-20-2024 End: 07-20-2024 Dr. Trung Bob MD -[facility] Work Phone: Start: 07-17-2024 End: 07-17-2024 ambulatory Radha Etienne RN Work Phone: [facility] Start: 07-17-2024 End: 07-17-2024 Home visit Radha Etienne RN Work Phone: [facility] Comment on above: Transition Of Care ( Andres D/C 07/14/24) Initial phone contact for Transitional Care Management Start: 07-14-2024 Dr. Cnorado moura MD -[facility] Work Phone: Start: 07-13-2024 Dr. Conrado moura MD -[facility] Work Phone: Start: 07-13-2024 Dian cabrera PA-C -[facility] Start: 07-12-2024 Dian cabrera PA-C -[facility] Start: 07-12-2024 Dr. Conrado moura MD -[facility] Work Phone: Start: 07-11-2024 End: 07-14-2024 Evaluation and management of inpatient No Primary Care Physician [facility] Work Phone: Start: 07-11-2024 End: 07-14-2024 Dr. Conrado Morel MD -[facility] Work Phone: Start: 07-11-2024 End: 07-11-2024 ambulatory Radha Etienne RN Work Phone: [facility] Start: 07-11-2024 End: 07-11-2024 Home visit Radha Etienne RN Work Phone: [facility] Comment on above: Transition Of Care ( TCM f/u/) Weekly phone contact (Recurring) for Transitional Care Management Start: 07-07-2024 End: 07-07-2024 ambulatory Radha Etienne RN Work Phone: [facility] [employer] Start: 07-07-2024 End: 07-07-2024 Home visit Radha Etienne RN Work Phone: [employer] Comment on above: Transition Of Care ( Andres D/C 07/06/24) Initial phone contact for Transitional Care Management Start: 07-06-2024 Dr. Chris Aragon [facility] Work Phone: Start: 07-05-2024 Dr. Chris Aragon [facility] Work Phone: Start: 07-04-2024 Antony Espitia DO [facility] Start: 07-04-2024 Dr. Chris Aragon [facility] Work Phone: Start: 07-04-2024 Dr. Yaneli hall MD -[facility] Start: 07-03-2024 ambulatory [facility] Facility:[facility] Start: 07-03-2024 Antony Friend DO -[facility] Start: 07-02-2024 Dr. Melonie De La Rosa DO [facility] Work Phone: Start: 07-01-2024 Dr. Melonie De La Rosa [facility] In[facility] Work Phone: Start: 06-30-2024 End: 07-06-2024 Evaluation and management of inpatient No Primary Care Physician [facility] Work Phone: Start: 06-30-2024 End: 07-06-2024 Dr. Chris Aragon [facility] Work Phone: Start: 06-30-2024 ambulatory Conrado Pro Facili ty:[facility] Start: 06-28-2024 Non-patient / Non-visit Dr. Melonie De La Rosa [facility] Work Phone: Start: 06-28-2024 Antony Friend DO -[facility] Start: 06-27-2024 Non-patient / Non-visit Antonymarsha Olivere nd DO -[facility] Start: 06-27-2024 Antony Friend DO -[facility] Start: 06-27-2024 Non-patient / Non-visit Dr. Melonie De La Rosa [facility] Work Phone: Start: 06-27-2024 Dr. Melonie De La Rosa [facility] Work Phone: Start: 06-26-2024 Non-patient / Non-visit Antony Frie nd DO -[facility] Start: 06-26-2024 Antony Friend DO -[facility] Start: 06-26-2024 End: 06-26-2024 Telephone encounter Marianna Wagner APRN.PHYSICAL THERAPIST TECHNICIAN Work Phone: [facility] Comment on above: Lab Orders Start: 06-26-2024 Non-patient / Non-visit Dr. Melonie De La Rosa [facility] Work Phone: Start: 06-26-2024 Dr. Melonie [facility] Work Phone: Start: 06-25-2024 ambulatory Conrado Pro [facility] ty:[facility] Start: 06-25-2024 End: 06-28-2024 Evaluation and management of inpatient Dr. Conrado Pro DO -Progressive Care Unit Work Phone: Start: 06-25-2024 End: 06-28-2024 Dr. Melonie [facility] Work Phone: Start: 06-21-2024 End: 06-21-2024 Telephone encounter Marianna A Queden SCREEN REPAIRER CRUSHER.PHYSICAL THERAPIST TECHNICIAN Work Phone: [facility] Start: 05-28-2024 End: 05-29-2024 Refill Marianna A Queden SCREEN REPAIRER CRUSHER.PHYSICAL THERAPIST TECHNICIAN Work Phone: [facility] Comment on above: Refill Request Start: 05-14-2024 End: 05-15-2024 Refill Marianna A Queden SCREEN REPAIRER CRUSHER.PHYSICAL THERAPIST TECHNICIAN Work Phone: [facility] Comment on above: Refill Request Start: 04-13-2024 End: 04-13-2024 ambulatory Trung Bob Facility:[facility] Start: 04-13-2024 End: 04-13-[address] [facility] Work Phone: Start: 04-13-2024 End: 04-13-2024 Dr. 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) Start: 04-10-2024 End: 06-10-2024 Follow-up encounter Susana Ramirez APRN.PHYSICAL THERAPIST TECHNICIAN Work Phone: [facility] [place] Start: 04-10-2024 End: 04-10-2024 Refill Ramy C Sheets DO Work Phone: [facility] Comment on above: Refill Request Start: 04-05-2024 ambulatory MARIANNA WAGNER Facili ty:[facility] Start: 04-05-2024 End: 04-05-2024 Subsequent hospital visit by physician Phoebe Vazquez MD Work Phone: [facility] Endoscopy Comment on above: Anemia, unspecified type [D64.9] Start: 03-31-2024 End: 03-31-2024 Telephone encounter Phoebe Vazquez MD Work Phone: General Surgery Comment on above: Returning Patient's Call Start: 03-29-2024 End: 03-29-2024 Telephone encounter Vandana Edwards Work Phone: Hematology/Oncology Start: 03-27-2024 End: 03-28-2024 Follow-up encounter Marianna Wagner APRN.PHYSICAL THERAPIST TECHNICIAN Work Phone: [facility] Comment on above: Type 2 diabetes kirk itus with complication, with long-term current use of insulin (HCC) Start: 03-24-2024 End: 03-24-2024 Telephone encounter Brandy Motta PA-C Work Phone: [place] Provider Adult Comment on above: Patient Question Start: 03-14-2024 End: 03-14-2024 ambulatory RAMY C SHEETS Facility:[facility] Start: 03-13-2024 End: 03-14-2024 Telephone encounter Phoebe Vazquez MD Work Phone: [facility] Comment on above: Patient Question Start: 03-08-2024 End: 03-08-2024 Refill Marianna A Queden SCREEN REPAIRER CRUSHER.PHYSICAL THERAPIST TECHNICIAN Work Phone: [facility] Comment on above: Refill Request Start: 02-21-2024 End: 02-21-2024 Refill Marianna A Queden SCREEN REPAIRER CRUSHER.PHYSICAL THERAPIST TECHNICIAN Work Phone: [facility] Comment on above: Refill Request Start: 02-21-2024 End: 02-21-2024 Telephone encounter Marianna A Queden SCREEN REPAIRER CRUSHER.PHYSICAL THERAPIST TECHNICIAN Work Phone: [facility] Comment on above: Patient Question Start: 02-20-2024 End: 02-21-2024 Refill Marianna A Queden SCREEN REPAIRER CRUSHER.PHYSICAL THERAPIST TECHNICIAN Work Phone: [facility] Comment on above: Refill Request Start: 02-16-2024 End: 03-03-2024 Telephone encounter Marianna A Queden SCREEN REPAIRER CRUSHER.PHYSICAL THERAPIST TECHNICIAN Work Phone: [facility] Comment on above: Lab Orders Start: 02-08-2024 End: 02-08-2024 Refill Marianna A Queden SCREEN REPAIRER CRUSHER.PHYSICAL THERAPIST TECHNICIAN Work Phone: [facility] Comment on above: Refill Request Start: 01-20-2024 End: 01-20-2024 Refill Marianna A Queden SCREEN REPAIRER CRUSHER.PHYSICAL THERAPIST TECHNICIAN Work Phone: [facility] Comment on above: Refill Request Start: 01-14-2024 End: 01-29-2024 Telephone encounter Vandana Edwards Work Phone: Hematology/Oncology Comment on above: Appointment Start: 01-13-2024 End: 01-13-2024 ambulatory No Primary Care Physician Facility:[facility] Start: 12-31-2023 End: 12-31-2023 Telephone encounter Sabra Desouza APRN.BLAST FURNACE CHECKER Work Phone: [facility] Comment on above: Anesthesia Consult Start: 12-27-2023 End: 12-27-2023 Patient encounter procedure Marianna A Queden SCREEN REPAIRER CRUSHER.PHYSICAL THERAPIST TECHNICIAN Work Phone: [facility] Comment on above: Primary hypertension (Primary Dx); Type 2 diabetes mellitus with complication, with long-term current use of insulin (HCC); Stage 3 chronic kidney disease, unspecified whether stage 3a or 3b CKD (HCC); Hyperlipidemia, mixed; Gastroesophageal reflux disease, unspecified whether esophagitis present; Chronic pancreatitis, unspecified pancreatitis type (HCC); Anemia, unspecified type Start: 12-27-2023 End: 12-27-2023 ambulatory MARIANNA WAGNER Facility:[facility] Start: 12-24-2023 End: 12-24-2023 ambulatory SUSANA RAMIREZ Facility:[facility] Start: 12-24-2023 End: 12-24-2023 Office outpatient new 45 minutes Susana Ramirez APRN.PHYSICAL THERAPIST TECHNICIAN Work Phone: [facility] [place] Comment on above: Anemia, unspecified type (Primary Dx); Weight loss; Chronic pancreatitis, unspecified pancreatitis type (HCC); Epigastric pain; Right lower quadrant abdominal pain Start: 12-16-2023 End: 12-16-2023 Telephone encounter Marianna Wagner APRN.CNP Work Phone: [facility] Comment on above: Results Start: 12-08-2023 ambulatory MARIANNA WAGNER [facility] Start: 12-08-2023 End: 12-08-2023 Subsequent hospital visit by physician [facility] Radiology Comment on above: Diarrhea, unspecifie d type [R19.7] Start: 12-07-2023 End: 12-07-2023 Telephone encounter Marianna Wagner SCREEN REPAIRER CRUSHER.PHYSICAL THERAPIST TECHNICIAN Work Phone: [facility] Start: 12-02-2023 End: 12-02-2023 Subsequent hospital visit by physician [facility] (I-Stat) Work Phone: Cat Scan Start: 11-26-2023 End: 11-26-2023 Refill Marianna Wagner APRN.CNP Work Phone: [facility] Comment on above: Refill Request Start: 11-25-2023 End: 11-29-2023 Telephone encounter Marianna Tayla Fátima SCREEN REPAIRER CRUSHER.PHYSICAL THERAPIST TECHNICIAN Work Phone: [facility] Comment on above: denial: [id number] JIMÉNEZ FERNANDO DUMONT Start: 11-16-2023 End: 11-16-2023 Telephone encounter Marianna Tayla Jasonden SCREEN REPAIRER CRUSHER.PHYSICAL THERAPIST TECHNICIAN Work Phone: [facility] Comment on above: Patient Update Start: 11-15-2023 End: 11-15-2023 ambulatory Vandana Edwards Work Phone: Hematology/Oncology Comment on above: Anemia, unspecified type (Primary Dx); Diarrhea of presumed infectious origin; 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); Medically complex patient Start: 11-15-2023 End: 11-15-2023 Patient encounter procedure Vandana Edwards Work Phone: Hematology/Oncology Start: 11-07-2023 End: 11-09-2023 Telephone encounter Marianna Wagner SCREEN REPAIRER CRUSHER.PHYSICAL THERAPIST TECHNICIAN Work Phone: [facility] Comment on above: Results; Orders Start: 11-06-2023 End: 11-08-2023 Refill Marianna Wagner SCREEN REPAIRER CRUSHER.PHYSICAL THERAPIST TECHNICIAN Work Phone: [facility] Comment on above: Refill Request Start: 11-05-2023 End: 11-05-2023 ambulatory Yessica Umana LPN [facility] Start: 10-30-2023 End: 10-30-2023 Emergency department patient visit ANN-MARIE WILMA DO [facility] Start: 10-21-2023 End: 10-21-2023 Subsequent hospital visit by physician Kira [facility] (I-Stat) Work Phone: Cat Scan Comment on above: Generalized abdomina l pain [R10.84] Start: 10-19-2023 End: 10-20-2023 Telephone encounter Jacky Sebastian DO Work Phone: Hematology/Oncology Comment on above: New Patient Start: 10-17-2023 End: 10-20-2023 Telephone encounter Marianna Wagner SCREEN REPAIRER CRUSHER.PHYSICAL THERAPIST TECHNICIAN Work Phone: [facility] Comment on above: Results Start: 10-14-2023 End: 10-14-2023 Patient encounter procedure Marianna Wagner SCREEN REPAIRER CRUSHER.PHYSICAL THERAPIST TECHNICIAN Work Phone: [facility] Comment on above: Generalized abdomina l [...] Start: 10-14-2023 End: 10-14-2023 ambulatory MARIANNA WAGNER Facility:[facility] Start: 10-07-2023 End: 10-12-2023 Telephone encounter Marianna Wagner SCREEN REPAIRER CRUSHER.PHYSICAL THERAPIST TECHNICIAN Work Phone: [facility] Comment on above: Results; Orders Start: 09-24-2023 Telephone encounter Marianna Wagner SCREEN REPAIRER CRUSHER.PHYSICAL THERAPIST TECHNICIAN Work Phone: [facility] Comment on above: Patient Question Start: 09-15-2023 ambulatory Radha Bartholomew lm, RN [facility] [employer] [facility] Start: 09-15-2023 Home visit Radha Bartholomew lm, RN [facility] [employer] Comment on above: Primary Care Coordin ator Chronic Care (Care Coordination) Start: 09-13-2023 Telephone encounter Marianna Wagner SCREEN REPAIRER CRUSHER.PHYSICAL THERAPIST TECHNICIAN Work Phone: [facility] Comment on above: Patient Update Start: 09-10-2023 ambulatory Radha Bartholomew lm, RN [employer] Comment on above: Diarrhea Start: 09-10-2023 Home visit Radha Bartholomew lm, RN [facility] [employer] Comment on above: Primary Care Coordin ator- Other (Care Coordination) Start: 08-24-2023 ambulatory Radha MOORE [employer] Start: 08-24-2023 Home visit Radha Bartholomew lm, RN [facility] [employer] Comment on above: Primary Care Coordin ator- Other (Care Coordination) Start: 08-20-2023 Telephone encounter Marianna Wagner SCREEN REPAIRER CRUSHER.PHYSICAL THERAPIST TECHNICIAN Work Phone: [facility] Comment on above: Patient Question Start: 08-16-2023 Telephone encounter Marianna Wagner SCREEN REPAIRER CRUSHER.PHYSICAL THERAPIST TECHNICIAN Work Phone: [facility] Comment on above: Results Start: 08-11-2023 Telephone encounter Marianna Wagner SCREEN REPAIRER CRUSHER.PHYSICAL THERAPIST TECHNICIAN Work Phone: [facility] Comment on above: Results Start: 08-09-2023 End: 08-09-2023 ambulatory MARIANNA WAGNER Facility:[facility] Start: 08-09-2023 End: 08-09-2023 Patient encounter procedure Marianna Wagner SCREEN REPAIRER CRUSHER.PHYSICAL THERAPIST TECHNICIAN Work Phone: [facility] Comment on above: Type 2 diabetes [...] Start: 08-09-2023 End: 08-09-2023 [facility]ulatory [facility] Start: 05-20-2023 ORDER FULFILLMENT SPECIALIST-C Andreas Pathak ORDER FULFILLMENT SPECIALIST Work Phone: [facility] Work Phone: Start: 05-19-2023 ORDER FULFILLMENT SPECIALISTAstrid Pathak ORDER FULFILLMENT SPECIALIST Work Phone: [facility] Work Phone: Start: 05-18-2023 ORDER FULFILLMENT SPECIALISTAstrid Pathak ORDER FULFILLMENT SPECIALIST Work Phone: [facility] Work Phone: Start: 05-17-2023 ORDER FULFILLMENT SPECIALIST-C Andreas Pathak ORDER FULFILLMENT SPECIALIST Work Phone: [facility] Phys[facility] Work Phone: Start: 05-16-2023 ORDER FULFILLMENT SPECIALIST-C Andreas Woodruff ORDER FULFILLMENT SPECIALIST Work Phone: [facility] Work Phone: Start: 05-15-2023 ORDER FULFILLMENT SPECIALIST-C Andreas Luxpkins ORDER FULFILLMENT SPECIALIST Work Phone: [facility] Work Phone: Start: 05-14-2023 ORDER FULFILLMENT SPECIALIST-C Andreas Pathak ORDER FULFILLMENT SPECIALIST Work Phone: [facility] Work Phone: Start: 05-13-2023 ORDER FULFILLMENT SPECIALIST-C Andreas Pathak ORDER FULFILLMENT SPECIALIST Work Phone: [facility] Work Phone: Start: 05-13-2023 ORDER FULFILLMENT SPECIALIST-C Andreas Pathak ORDER FULFILLMENT SPECIALIST Work Phone: [facility] Start: 05-12-2023 ORDER FULFILLMENT SPECIALIST-C Andreas Pathak ORDER FULFILLMENT SPECIALIST Work Phone: [facility] Start: 05-12-2023 ORDER FULFILLMENT SPECIALIST-C Andreas Pathak ORDER FULFILLMENT SPECIALIST Work Phone: [facility] Work Phone: Start: 05-11-2023 ORDER FULFILLMENT SPECIALIST-C Andreas Luxpkins ORDER FULFILLMENT SPECIALIST Work Phone: [facility] Work Phone: Start: 05-10-2023 ORDER FULFILLMENT SPECIALIST-C Andreas Luxpkins ORDER FULFILLMENT SPECIALIST Work Phone: [facility] Start: 05-10-2023 ORDER FULFILLMENT SPECIALIST-C Andreas Luxpkins ORDER FULFILLMENT SPECIALIST Work Phone: [facility] Work Phone: Start: 05-09-2023 End: 05-20-2023 Evaluation and management of inpatient ORDER FULFILLMENT SPECIALIST-C Andreas Pathak ORDER FULFILLMENT SPECIALIST Work Phone: [facility] 3 Work Phone: Start: 05-09-2023 End: 05-20-2023 ORDER FULFILLMENT SPECIALIST-C Andreas Pathak ORDER FULFILLMENT SPECIALIST Work Phone: [facility]-Progressive Care Unit Work Phone: Start: 04-27-2023 Non-patient / Non-visit ORDER FULFILLMENT SPECIALIST-C R chuck Pathak ORDER FULFILLMENT SPECIALIST Work Phone: [facility] In[facility] Work Phone: Start: 04-27-2023 ORDER FULFILLMENT SPECIALIST-C Andreas Pathak ORDER FULFILLMENT SPECIALIST Work Phone: [facility] Work Phone: Start: 04-26-2023 Non-patient / Non-visit ORDER FULFILLMENT SPECIALIST-C R chuck Pathak ORDER FULFILLMENT SPECIALIST Work Phone: [facility] Work Phone: Start: 04-26-2023 ORDER FULFILLMENT SPECIALIST-C Andreas Pathak ORDER FULFILLMENT SPECIALIST Work Phone: [facility] Work Phone: Start: 04-25-2023 Non-patient / Non-visit ORDER FULFILLMENT SPECIALIST-C R chuck Pathak ORDER FULFILLMENT SPECIALIST Work Phone: [facility] In[facility] Phys[facility] Work Phone: Start: 04-25-2023 ORDER FULFILLMENT SPECIALIST-C Andreas Pathak ORDER FULFILLMENT SPECIALIST Work Phone: [facility] Work Phone: Start: 04-24-2023 Non-patient / Non-visit ORDER FULFILLMENT SPECIALIST-C R chuck Pathak ORDER FULFILLMENT SPECIALIST Work Phone: [facility] Work Phone: Start: 04-24-2023 ORDER FULFILLMENT SPECIALIST-C Andreas Zo ORDER FULFILLMENT SPECIALIST Work Phone: [facility] Work Phone: Start: 04-23-2023 Non-patient / Non-visit ORDER FULFILLMENT SPECIALIST-C R chuck Luxpkins ORDER FULFILLMENT SPECIALIST Work Phone: [facility] Work Phone: Start: 04-23-2023 ORDER FULFILLMENT SPECIALIST-C Andreas Woodruff ORDER FULFILLMENT SPECIALIST Work Phone: [facility] Work Phone: Start: 04-22-2023 Non-patient / Non-visit ORDER FULFILLMENT SPECIALIST-C R chuck Pathak ORDER FULFILLMENT SPECIALIST Work Phone: [facility] Work Phone: Start: 04-22-2023 ORDER FULFILLMENT SPECIALIST-C Andreas Pathak ORDER FULFILLMENT SPECIALIST Work Phone: [facility] Work Phone: Start: 04-21-2023 Non-patient / Non-visit ORDER FULFILLMENT SPECIALIST-C R chuck Cam[place]ins ORDER FULFILLMENT SPECIALIST Work Phone: [facility] Work Phone: Start: 04-21-2023 ORDER FULFILLMENT SPECIALIST-C Andreas Luxpkins ORDER FULFILLMENT SPECIALIST Work Phone: [facility] Work Phone: Start: 04-20-2023 Evaluation and manag ement of inpatient ORDER FULFILLMENT SPECIALIST-C Andreas Luxpkins ORDER FULFILLMENT SPECIALIST Work Phone: [facility] 3 Work Phone: Start: 04-20-2023 Non-patient / Non-visit ORDER FULFILLMENT SPECIALIST-C R chuck Pathak ORDER FULFILLMENT SPECIALIST Work Phone: [facility] Work Phone: Start: 04-20-2023 End: 04-27-2023 Evaluation and management of inpatient ORDER FULFILLMENT SPECIALIST-C Andreas Pathak ORDER FULFILLMENT SPECIALIST [facility]: Start: 04-20-2023 End: 04-27-2023 ORDER FULFILLMENT SPECIALIST-Stephen Pathak ORDER FULFILLMENT SPECIALIST [facility] Work Phone: Start: 04-14-2023 End: 04-14-2023 Patient encounter procedure ORDER FULFILLMENT SPECIALIST-Stephen Pathak ORDER FULFILLMENT SPECIALIST Work Phone: [facility] Work Phone: Start: 04-14-2023 End: 04-14-2023 ORDER FULFILLMENT SPECIALIST-Stephen Pathak ORDER FULFILLMENT SPECIALIST Work Phone: [facility] Work Phone: Start: 04-01-2023 End: 04-06-2023 ambulatory ANDREAS PATHAK SCREEN REPAIRER CRUSHER - PHYSICAL THERAPIST TECHNICIAN Facility:B Start: 03-15-2023 End: 03-19-2023 Evaluation and management of inpatient DR MARIELY WAGNER MD Facility:A Start: 03-15-2023 End: 03-16-2023 ambulatory ANDREAS PATHAK SCREEN REPAIRER CRUSHER - PHYSICAL THERAPIST TECHNICIAN Facility:A Start: 03-15-2023 End: 03-19-2023 Evaluation and management of inpatient DR MARIELY WAGNER MD [facility] Start: 03-15-2023 End: 03-15-[address] VANESSA GROSS MD [facility] Start: 03-01-2023 ambulatory ANDREAS TOWNSEND SCREEN REPAIRER CRUSHER - PHYSICAL THERAPIST TECHNICIAN Facility:[facility] Start: 02-22-2023 ambulatory ANDREAS TOWNSEND SCREEN REPAIRER CRUSHER - PHYSICAL THERAPIST TECHNICIAN Facility:B Start: 02-22-2023 End: 03-22-2024 OTHER THERAPY ANDREAS PATHAK SCREEN REPAIRER CRUSHER - PHYSICAL THERAPIST TECHNICIAN [facility] Start: 02-17-2023 End: 02-17-2023 Patient encounter procedure ORDER FULFILLMENT SPECIALIST-C Andreas Pathak ORDER FULFILLMENT SPECIALIST Work Phone: [facility] Work Phone: Start: 02-17-2023 End: 02-17-2023 ORDER FULFILLMENT SPECIALIST-C Andreas Pathak ORDER FULFILLMENT SPECIALIST Work Phone: [facility] Work Phone: Start: 01-13-2023 End: 01-13-2023 Patient encounter procedure ORDER FULFILLMENT SPECIALIST-C Andreas Pathak ORDER FULFILLMENT SPECIALIST Work Phone: [facility] Work Phone: Start: 11-01-2022 End: 11-01-2022 [facility] Start: 10-15-2022 End: 10-16-2022 ambulatory ANDREAS PATHAK SCREEN REPAIRER CRUSHER - PHYSICAL THERAPIST TECHNICIAN Facility:B Start: 10-15-2022 End: 10-15-2022 Patient encounter procedure ANDREAS PATHAK SCREEN REPAIRER CRUSHER - PHYSICAL THERAPIST TECHNICIAN [facility] Start: 10-05-2022 End: 10-05-2022 Emergency department patient visit ANDREAS PATHAK SCREEN REPAIRER CRUSHER - PHYSICAL THERAPIST TECHNICIAN Facility:B Start: 10-05-2022 End: 10-05-2022 Emergency department patient visit MAGDALENA EDOUARDSANDRA RILEY [facility] Start: 09-22-2022 End: 09-23-2022 ambulatory ANDREAS PATHAK SCREEN REPAIRER CRUSHER - PHYSICAL THERAPIST TECHNICIAN Facility:B Start: 07-20-2022 End: 07-21-2022 Emergency department patient visit [facility]Emer[facility] Work Phone: Start: 07-02-2022 End: 07-07-2022 ambulatory ANDREAS PATHAK SCREEN REPAIRER CRUSHER - PHYSICAL THERAPIST TECHNICIAN Facility:B Start: 07-02-2022 End: 07-06-2022 Outreach Lab ANDREAS PATHAK SCREEN REPAIRER CRUSHER - PHYSICAL THERAPIST TECHNICIAN [facility] Start: 06-19-2022 End: 06-20-2022 ambulatory ANDREAS CAMARGOKINS SCREEN REPAIRER CRUSHER - PHYSICAL THERAPIST TECHNICIAN Facility:B Start: 06-19-2022 End: 06-19-2022 Patient encounter procedure ANDREAS PATHAK SCREEN REPAIRER CRUSHER - PHYSICAL THERAPIST TECHNICIAN [facility] Start: 05-13-2022 End: 05-13-2022 Emergency department patient visit DR MERRICK SINGH DO Facility:B Start: 05-13-2022 End: 05-13-2022 Emergency department patient visit DR MERRICK SINGH DO [facility] Start: 03-23-2022 Non-patient / Non-visit ORDER FULFILLMENT SPECIALIST-C R chuck Pathak ORDER FULFILLMENT SPECIALIST Work Phone: [facility] Inpatient Physicians Start: 03-22-2022 Non-patient / Non-visit ORDER FULFILLMENT SPECIALIST-C R chuck Pathak ORDER FULFILLMENT SPECIALIST Work Phone: [facility] Inpatient Physicians Start: 03-21-2022 Non-patient / Non-visit ORDER FULFILLMENT SPECIALIST-C R chuck Pathak ORDER FULFILLMENT SPECIALIST Work Phone: [facility] Start: 03-21-2022 End: 03-24-2022 Evaluation and management of inpatient ORDER FULFILLMENT SPECIALIST-C Andreas Pathak ORDER FULFILLMENT SPECIALIST [facility] Start: 02-04-2022 Non-patient / Non-visit ORDER FULFILLMENT SPECIALIST-C R chuck Pathak ORDER FULFILLMENT SPECIALIST Work Phone: [facility] Start: 02-03-2022 Non-patient / Non-visit ORDER FULFILLMENT SPECIALIST-C R chuck Pathak ORDER FULFILLMENT SPECIALIST Work Phone: [facility] Start: 02-02-2022 Non-patient / Non-visit ORDER FULFILLMENT SPECIALIST-C R chuck Pathak ORDER FULFILLMENT SPECIALIST Work Phone: [facility] Start: 02-01-2022 End: 02-04-2022 Evaluation and management of inpatient ORDER FULFILLMENT SPECIALIST-C Andreas Pathak ORDER FULFILLMENT SPECIALIST [facility] Start: 11-14-2021 Non-patient / Non-visit ORDER FULFILLMENT SPECIALIST-C R chuck Pathak ORDER FULFILLMENT SPECIALIST Work Phone: [facility] Start: 11-13-2021 Non-patient / Non-visit ORDER FULFILLMENT SPECIALIST-C R chuck Pathak ORDER FULFILLMENT SPECIALIST Work Phone: [facility] Start: 11-12-2021 Non-patient / Non-visit ORDER FULFILLMENT SPECIALIST-C R chuck Pathak ORDER FULFILLMENT SPECIALIST Work Phone: [facility] Start: 11-11-2021 End: 11-14-2021 Evaluation and management of inpatient ORDER FULFILLMENT SPECIALIST-C Andreas Pathak ORDER FULFILLMENT SPECIALIST [facility] Start: 11-08-2021 Non-patient / Non-visit ORDER FULFILLMENT SPECIALIST-C R chuck Pathak ORDER FULFILLMENT SPECIALIST Work Phone: [facility] Start: 11-07-2021 Non-patient / Non-visit ORDER FULFILLMENT SPECIALIST-C R chuck Pathak ORDER FULFILLMENT SPECIALIST Work Phone: [facility] Start: 11-06-2021 Non-patient / Non-visit ORDER FULFILLMENT SPECIALIST-C R chuck Pathak ORDER FULFILLMENT SPECIALIST Work Phone: [facility] Start: 11-05-2021 End: 11-08-2021 Evaluation and management of inpatient ORDER FULFILLMENT SPECIALIST-C Andreas Pathak ORDER FULFILLMENT SPECIALIST Work Phone: [facility] Start: 11-05-2021 Non-patient / Non-visit ORDER FULFILLMENT SPECIALIST-C R chuck Pathak ORDER FULFILLMENT SPECIALIST Work Phone: [facility] Start: 10-06-2021 End: 10-06-2021 Emergency department patient visit ORDER FULFILLMENT SPECIALIST-C Andreas Pathak ORDER FULFILLMENT SPECIALIST Work Phone: [facility] Start: 09-30-2021 End: 09-30-2021 Emergency department patient visit ORDER FULFILLMENT SPECIALIST-C Andreas Pathak ORDER FULFILLMENT SPECIALIST Work Phone: [facility] Start: 08-15-2021 End: 08-15-2021 Patient encounter procedure ORDER FULFILLMENT SPECIALIST-C Andreas Pathak ORDER FULFILLMENT SPECIALIST Work Phone: [facility] Start: 08-14-2021 End: 08-15-2021 Non-patient / Non-visit ORDER FULFILLMENT SPECIALIST-C Andreas Pathak ORDER FULFILLMENT SPECIALIST Work Phone: [facility] Start: 08-06-2021 End: 08-06-2021 Patient encounter procedure ANDREAS PATHAK SCREEN REPAIRER CRUSHER - PHYSICAL THERAPIST TECHNICIAN [facility] Start: 05-31-2021 Non-patient / Non-visit ORDER FULFILLMENT SPECIALIST-C Harry Pathak ORDER FULFILLMENT SPECIALIST Work Phone: [facility] Start: 05-30-2021 Non-patient / Non-visit ORDER FULFILLMENT SPECIALIST-C Harry Pathak ORDER FULFILLMENT SPECIALIST Work Phone: [facility] Start: 05-29-2021 Non-patient / Non-visit ORDER FULFILLMENT SPECIALIST-C Harry Pathak ORDER FULFILLMENT SPECIALIST Work Phone: [facility] Start: 05-29-2021 End: 06-01-2021 Evaluation and management of inpatient ORDER FULFILLMENT SPECIALIST-C Andreas Pathak ORDER FULFILLMENT SPECIALIST Work Phone: [facility] Start: 05-21-2021 End: 05-22-2021 Emergency department patient visit ORDER FULFILLMENT SPECIALIST-C nAdreas Pathak ORDER FULFILLMENT SPECIALIST Work Phone: [facility] Start: 05-05-2021 Non-patient / Non-visit ORDER FULFILLMENT SPECIALIST-C Harry Pathak ORDER FULFILLMENT SPECIALIST Work Phone: [facility] Start: 05-05-2021 Non-patient / Non-visit ORDER FULFILLMENT SPECIALIST-C Harry Pathak ORDER FULFILLMENT SPECIALIST Work Phone: [facility] Start: 05-05-2021 Non-patient / Non-visit ORDER FULFILLMENT SPECIALIST-C Harry Pathak ORDER FULFILLMENT SPECIALIST Work Phone: [facility] Start: 05-04-2021 End: 05-05-2021 Evaluation and management of inpatient [facility] Start: 05-02-2021 End: 05-02-2021 Emergency department patient visit DR SHILPI BURNS MD [facility] Start: 04-09-2021 End: 04-09-2021 Patient encounter procedure ANDREAS PATHAK SCREEN REPAIRER CRUSHER - PHYSICAL THERAPIST TECHNICIAN [facility] Start: 08-25-2018 Notes/Results Only Other Other NOTE S/RESULTS Start: 08-25-2018 End: 08-25-2018 Patient encounter procedure Other Other U [facility] Start: 07-15-2018 Patient encounter procedure LYSSA MONTERROSO Facility:[facility] Start: 04-08-2018 Patient encounter procedure LYSSA MONTERROSO Facility:[facility] Start: 01-14-2018 End: 01-15-2018 Patient encounter procedure LYSSA MONTERROSO Facility:[facility] Start: 11-09-2017 End: 11-09-2017 Emergency department patient visit BANDAR DAIGLE [facility] Start: 11-01-2017 Patient encounter procedure UMAIR LARKIN Facility:[facility] Start: 07-01-2017 Patient encounter procedure LYSSA MONTERROSO Facility:[facility] Start: 04-29-2017 End: 04-29-2017 Patient encounter procedure UMAIR LARKIN Facility:[facility] Start: 03-16-2016 End: 03-20-2016 Patient encounter status Marianna Wagner SCREEN REPAIRER CRUSHER.PHYSICAL THERAPIST TECHNICIAN Work Phone: [facility] Procedures Date Procedure Procedure Detail Performing Clinician Start: 10-24-2024 Echocardiography VANDANA ANDREW Start: 10-22-2024 Antibody screen VANDANA EDWARDS Comment on above: Order Comment: Specimen Type: BLOOD SPEC IMENOrdering Facility: [facility] Address: [address] [place] [address] Performed By: #### T SCR ####CC MAIN BLOOD BANKCLIA [id number] [address] Start: 10-19-2024 Echocardiography VANDANA EDWARDS Start: 10-18-2024 Antibody screen VANDANA EDWARDS Comment on above: Order Comment: Specimen Type: BLOOD SPEC IMENOrdering Facility: [facility] Address: [address] [place] [address] Performed By: #### T SCR ####CC MAIN BLOOD BANKCLIA [id number] [address] Start: 10-17-2024 H/O: artificial heart valve History of heart valve replacement with bioprosthetic valve Talia Serrano APRN.PHYSICAL THERAPIST TECHNICIAN Work Phone: Start: 10-12-2024 Computed tomography of [...] Start: 07-04-2024 Gliadin antibody, IgA measurement No [facility] Start: 07-04-2024 Gliadin antibody, IgG measurement No [facility] Start: 07-04-2024 Immunoglobulin M measurement No Primary Care Physician Start: 07-04-2024 In-vitro immunologic test No Primary Car e Physician Start: 07-04-2024 [employer] TE[employer]ER antibody measurement No Primary Care Physician Start: [...] Urine microscopy: red cells No Primary [facility] Start: 06-30-2024 Urnls dip stick/tablet reagent [...] Care Physician Start: 06-27-2024 Esophagogastroduodenoscopy No Primary [facility] Physician Start: 06-27-2024 Calculation of international [...] dx w/collj spec when pfrmd Susana Ramirez SCREEN REPAIRER CRUSHER.PHYSICAL THERAPIST TECHNICIAN Work Phone: Start: 04-05-2024 Esophagogastroduodenoscopy transoral diagnostic Susana Ramirez SCREEN REPAIRER CRUSHER.PHYSICAL THERAPIST TECHNICIAN Work Phone: Start: 04-05-2024 Gluc bld gluc mntr dev cleared fda spec home use Lucas De La Garzaalfonzo SCREEN REPAIRER CRUSHER.BLAST FURNACE CHECKER Work Phone: Start: 04-05-2024 PACER OR ICD CHECK ([place] Phoebe pitts MD Work Phone: Start: 04-05-2024 Colonoscopy Phoebe Vazquez MD Work Phone: Start: 10-21-2023 Ct abdomen & pelvis w/o contrast material Marianna Wagner SCREEN REPAIRER CRUSHER.PHYSICAL THERAPIST TECHNICIAN Work Phone: Start: 08-09-2023 Culture bacterial quanttative colony count urine Marianna Tayla Gomezden SCREEN REPAIRER CRUSHER.PHYSICAL THERAPIST TECHNICIAN Work Phone: Start: 08-09-2023 Urnls dip stick/tablet rgnt auto w/o microscopy Marianna Tayla Gomezden SCREEN REPAIRER CRUSHER.PHYSICAL THERAPIST TECHNICIAN Work Phone: Start: 05-16-2023 Measurement of occult blood in stool specimen using immunoassay ORDER FULFILLMENT SPECIALIST-C Andreas Pathak ORDER FULFILLMENT SPECIALIST Work Phone: Start: 05-11-2023 US urinary tract ORDER FULFILLMENT SPECIALIST-C Andreas Pathak ORDER FULFILLMENT SPECIALIST Work Phone: Start: 05-10-2023 Urine culture ORDER FULFILLMENT SPECIALIST-C Andreas Pathak ORDER FULFILLMENT SPECIALIST Work Phone: Start: 05-10-2023 ORDER FULFILLMENT SPECIALIST-C Andreas Pathak ORDER FULFILLMENT SPECIALIST Work Phone: Start: 05-09-2023 Computed tomography of abdomen and pelvis with intravenous contrast ORDER FULFILLMENT SPECIALIST-C Andreas Pathak ORDER FULFILLMENT SPECIALIST Work Phone: Start: 05-09-2023 Plain chest X-ray ORDER FULFILLMENT SPECIALIST-C Andreas Pathak ORDER FULFILLMENT SPECIALIST Work Phone: Start: 04-23-2023 CT of head without contrast ORDER FULFILLMENT SPECIALIST-C Andreas Pathak ORDER FULFILLMENT SPECIALIST Work Phone: Start: 04-20-2023 Computed tomography of abdomen and pelvis with intravenous contrast ORDER FULFILLMENT SPECIALIST-C Andreas Pathak ORDER FULFILLMENT SPECIALIST Work Phone: Start: 02-01-2022 Plain chest X-ray ORDER FULFILLMENT SPECIALIST-C Andreas Pathak ORDER FULFILLMENT SPECIALIST Work Phone: Start: 09-30-2021 Plain chest X-ray ORDER FULFILLMENT SPECIALIST-C Andreas Pathak ORDER FULFILLMENT SPECIALIST Work Phone: Start: 05-30-2021 Ultrasonography of abdomen ORDER FULFILLMENT SPECIALIST-C Andreas Pathak ORDER FULFILLMENT SPECIALIST Work Phone: Start: 05-21-2021 End: 05-21-2021 Viral antigen assay ORDER FULFILLMENT SPECIALIST-C Andreas Pathak ORDER FULFILLMENT SPECIALIST Work Phone: Start: 05-05-2021 Cardiovascular stress test using pharmacologic stress agent ORDER FULFILLMENT SPECIALIST-C Andreas Pathak ORDER FULFILLMENT SPECIALIST Work Phone: Start: 05-04-2021 Plain chest X-ray Start: 11-09-2017 Urinalysis BANDAR DAIGLE Comment on above: Result Comment: URINALYSIS Performed By: #### [id number] ####[facility],[address] [place] [address] Start: 11-09-2017 Microscopic examination of blood, culture BANDAR DAIGLE Comment on above: Performed By: #### [id number] ####[place] [id number] Pacemaker catheter, device (physical object) ANDREAS PATHAK SCREEN REPAIRER CRUSHER - PHYSICAL THERAPIST TECHNICIAN Repair of thoracic a ortic aneurysm ANDREAS LUXPKINS SCREEN REPAIRER CRUSHER - PHYSICAL THERAPIST TECHNICIAN Replacement of aortic valve ANDREAS LUXPKINS SCREEN REPAIRER CRUSHER - PHYSICAL THERAPIST TECHNICIAN Plan of Treatment Date Care Activity Detail Author Start: 08-08-2028 Prostate specific antigen measurement Prostate Cancer Screening Discussion [facility] Start: 10-23-2025 Creatinine measurement Serum Creatinine [facility] Start: 10-20-2025 Complete blood count Hemoglobin/Hematocrit [facility] Start: 10-20-2025 Creatinine measurement Serum Creatinine [facility] Start: 04-12-2025 Complete blood count Hemoglobin/Hematocrit [facility] Start: 04-05-2025 Screening for malignant neoplasm of colon [facility] Start: 01-17-2025 Hemoglobin A1c measurement HbA1C [facility] Start: 12-26-2024 Annual PCP Team Chronic Disease Visit Annual PCP Team Chronic Disease Visit [facility] Start: 12-26-2024 BP Controlled (<130/80) BP Controlled (<130/80) [facility] Start: 10-20-2024 End: 10-20-2024 Cath plmt l hrt & arts w/njx & angio img s&i CORONARY ANGIO W CATH PLACE W IMAGE INJECT & INTERP W LT HEART CATH W INJECT LT VENTRGRAPHY VHD (valvular heart disease) 10/20/2024 4:45 AM 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 Start: 10-14-2024 Complete blood count Hemoglobin/Hematocrit [facility] Start: 10-14-2024 Creatinine measurement Serum Creatinine [facility] Start: 10-14-2024 Hepatitis B screening Urine Albumin:Creatinine Ratio [facility] Start: 10-13-2024 Annual PCP Team Chronic Disease Visit Annual PCP Team Chronic Disease Visit [facility] Start: 10-13-2024 BP Controlled (<130/80) BP Controlled (<130/80) [facility] Start: 10-13-2024 Screening for malignant neoplasm of colon [facility] Start: 10-12-2024 Verification routine [facility] Start: 10-12-2024 Admission procedure [facility] Start: 10-12-2024 Hospital admission, emergency, from emergency room, medical nature [facility] Start: 10-12-2024 [facility] Start: 10-09-2024 Influenza vaccination [facility] Start: 10-06-2024 [facility] Start: 09-24-2024 Creatinine measurement Serum Creatinine [facility] Start: 09-11-2024 Hemoglobin A1c measurement HbA1C [facility] Start: 09-04-2024 Patient discharge [facility] Start: 09-04-2024 Vital signs measurements [facility] Start: 09-04-2024 Dietary regime [facility] Start: 09-04-2024 [facility] Start: 09-03-2024 Referral to occupational therapist [facility] Start: 09-03-2024 Referral to service [facility] Start: 09-02-2024 Inhalation therapy procedure [facility] Start: 09-01-2024 Vital signs measurements [facility] Start: 08-31-2024 Referral to gastroenterology service [facility] Start: 08-31-2024 Consultation [facility] Start: 08-30-2024 Vital signs measurements [facility] Start: 08-30-2024 [facility] Start: 08-29-2024 End: 08-29-2024 [facility] Start: 08-29-2024 Care regimes management [facility] Start: 08-29-2024 Notification of physician [facility] Start: 08-29-2024 [facility] Start: 08-29-2024 Following clinical pathway protocol [facility] Start: 08-29-2024 Ambulation without limitation [facility] Start: 08-29-2024 Assessment of risk of venous thromboembolism [facility] Start: 08-29-2024 Insertion of catheter into peripheral vein [facility] Start: 08-29-2024 Oxygen therapy [facility] Start: 08-29-2024 Providing care according to standard [facility] Start: 08-29-2024 [facility] Start: 08-29-2024 Verification routine [facility] Start: 08-29-2024 Admission procedure [facility] Start: 08-29-2024 Consultation [facility] Start: 08-29-2024 Patient referral to dietitian [facility] Start: 08-28-2024 Hospital admission, emergency, from emergency room, medical nature [facility] Start: 08-28-2024 [facility] Start: 08-28-2024 [facility] Start: 08-08-2024 Annual PCP Team Chronic Disease Visit Annual PCP Team Chronic Disease Visit [facility] Start: 08-08-2024 BP Controlled (<130/80) BP Controlled (<130/80) [facility] Start: 08-08-2024 Complete blood count Hemoglobin/Hematocrit [facility] Start: 08-08-2024 Creatinine measurement Serum Creatinine [facility] Start: 08-08-2024 Hepatitis B surface antibody level LDL Cholesterol [facility] Start: 08-03-2024 Patient discharge [facility] Start: 08-02-2024 [facility] Start: 08-02-2024 Referral to vascular surgeon [facility] Start: 08-01-2024 Following clinical pathway protocol [facility] Start: 08-01-2024 Application of elastic bandage [facility] Start: 08-01-2024 Assessment of risk of venous thromboembolism [facility] Start: 08-01-2024 Care regimes management [facility] Start: 08-01-2024 Elevation of affected extremity [facility] Start: 08-01-2024 Fall prevention [facility] Start: 08-01-2024 Inhalation therapy procedure [facility] Start: 08-01-2024 Insertion of catheter into peripheral vein [facility] Start: 08-01-2024 Introduction of urinary catheter [facility] Start: 08-01-2024 Measuring intake and output [facility] Start: 08-01-2024 Notification of physician [facility] Start: 08-01-2024 Oxygen therapy [facility] Start: 08-01-2024 Patient education [facility] Start: 08-01-2024 Patient referral to dietitian [facility] Start: 08-01-2024 Providing care according to standard [facility] Start: 08-01-2024 Provision of activity privileges [facility] Start: 08-01-2024 Referral to occupational therapist [facility] Start: 08-01-2024 Referral to service [facility] Start: 08-01-2024 Tobacco use cessation education [facility] Start: 08-01-2024 End: 08-01-2024 [facility] Start: 08-01-2024 Hospital admission, emergency, from emergency room, medical nature [facility] Start: 08-01-2024 Verification routine [facility] Start: 08-01-2024 Admission procedure [facility] Start: 08-01-2024 Consultation [facility] Start: 08-01-2024 Patient referral to dietitian [facility] Start: 08-01-2024 [facility] Start: 07-14-2024 Patient discharge [facility] Start: 07-13-2024 [facility] Start: 07-13-2024 Referral to service [facility] Start: 07-13-2024 End: 07-13-[address] [facility] Comment on above: LABS 3MO OV/EARLY LABS* Start: 07-13-2024 Following clinical pathway protocol [facility] Start: 07-12-2024 [facility] Start: 07-12-2024 Referral to service [facility] Start: 07-11-2024 Ambulation without limitation [facility] Start: 07-11-2024 Assessment of risk of venous thromboembolism [facility] Start: 07-11-2024 Care regimes management [facility] Start: 07-11-2024 Inhalation therapy procedure [facility] Start: 07-11-2024 Insertion of catheter into peripheral vein [facility] Start: 07-11-2024 Measuring intake and output [facility] Start: 07-11-2024 Notification of physician [facility] Start: 07-11-2024 Patient referral to dietitian [facility] Start: 07-11-2024 Providing care according to standard [facility] Start: 07-11-2024 Referral to general surgeon [facility] Start: 07-11-2024 Referral to service [facility] Start: 07-11-2024 End: 07-11-2024 [facility] Start: 07-11-2024 Following clinical pathway protocol [facility] Start: 07-11-2024 Verification routine [facility] Start: 07-11-2024 Admission procedure [facility] Start: 07-11-2024 Hospital admission, emergency, from emergency room, medical nature [facility] Start: 07-11-2024 [facility] Start: 07-11-2024 Patient referral to [facility] Start: 07-06-2024 Patient discharge [facility] Start: 07-03-2024 Referral to package checker [facility] Start: 07-03-2024 In-vitro immunologic test [facility] Start: 07-03-2024 Laboratory test [facility] Start: 07-03-2024 Serum immunofixation [facility] Start: 07-03-2024 [facility] Start: 07-03-2024 Inhalation therapy procedure [facility] Start: 07-02-2024 Referral to gastroenterology service [facility] Start: 07-01-2024 [facility] Start: 07-01-2024 Application of intermittent pneumatic compression device [facility] Start: 07-01-2024 Physiotherapy of chest [facility] Start: 06-30-2024 Following clinical pathway protocol [facility] Start: 06-30-2024 Aspiration precautions [facility] Start: 06-30-2024 Assessment of risk of venous thromboembolism [facility] Start: 06-30-2024 Care regimes management [facility] Start: 06-30-2024 Catheterization of vein [facility] Start: 06-30-2024 Insertion of catheter into peripheral vein [facility] Start: 06-30-2024 Measuring intake and output [facility] Start: 06-30-2024 Notification of physician [facility] Start: 06-30-2024 Oxygen therapy [facility] Start: 06-30-2024 Providing care according to standard [facility] Start: 06-30-2024 Provision of activity privileges [facility] Start: 06-30-2024 Referral to service [facility] Start: 06-30-2024 End: 06-30-2024 [facility] Start: 06-30-2024 Admission procedure [facility] Start: 06-30-2024 Patient referral to dietitian [facility] Start: 06-30-2024 [facility] Start: 06-28-2024 Patient discharge [facility] Start: 06-27-2024 [facility] Start: 06-26-2024 Application of intermittent pneumatic compression device [facility] Start: 06-26-2024 Following clinical pathway protocol [facility] Start: 06-26-2024 End: 06-26-2024 Microbial culture, body fluid [facility] Start: 06-26-2024 Anaerobic Culture Anaerobic Culture [facility] Start: 06-26-2024 Referral to service [facility] Start: 06-26-2024 Following clinical pathway protocol [facility] Start: 06-26-2024 Aspiration precautions [facility] Start: 06-26-2024 Assessment of risk of venous thromboembolism [facility] Start: 06-26-2024 Care regimes management [facility] Start: 06-26-2024 Documentation procedure [facility] Start: 06-26-2024 Inhalation therapy procedure [facility] Start: 06-26-2024 Insertion of catheter into peripheral vein [facility] Start: 06-26-2024 Measuring intake and output [facility] Start: 06-26-2024 Notification of physician [facility] Start: 06-26-2024 Oxygen therapy [facility] Start: 06-26-2024 Providing care according to standard [facility] Start: 06-26-2024 Provision of activity privileges [facility] Start: 06-26-2024 Referral to gastroenterology service [facility] Start: 06-26-2024 Referral to service [facility] Start: 06-26-2024 Seizure precautions [facility] Start: 06-26-2024 Tobacco use cessation education [facility] Start: 06-26-2024 End: 06-26-2024 [facility] Start: 06-26-2024 Care of central venous catheter [facility] Start: 06-26-2024 Following clinical pathway protocol [facility] Start: 06-26-2024 Patient referral to dietitian [facility] Start: 06-25-2024 Centesis [facility] Start: 06-25-2024 Verification routine [facility] Start: 06-25-2024 Admission procedure [facility] Start: 06-25-2024 Hospital admission, emergency, from emergency room, medical nature [facility] Start: 06-25-2024 Clostridioides difficile (PCR) Clostridioides difficile (PCR) [facility] Start: 06-25-2024 Enteric Bacteriology Enteric Bacteriology [facility] Start: 06-25-2024 Ova and Parasites Ova and Parasites [facility] Start: 06-25-2024 Stool Lactoferrin Stool Lactoferrin [facility] Start: 04-12-2024 End: 04-12-[address] [facility] Comment on above: LABS* LABS EARLY/OV/EGD & COLONOSCOPY 04/05* Start: 04-05-2024 End: 04-05-2024 Patient encounter procedure [facility] Endoscopy Comment on above: Colon EGD- PLEASE DO NOT CANCEL THIS PAT IENT Start: 03-29-2024 End: 03-29-[address] [facility] Comment on above: LABS* LABS EARLY / OV/EGD & COLONOSCOPY 03/16* Start: 03-16-2024 End: 02-06-2025 Patient encounter procedure 03/16/2024 11:00 AM EST Appointment LD SURGERY [address] [place] [address] Phoebe Vazquez MD [address] [facility] [place] [phone] Anemia, unspecified type [D64.9]; Weight loss [R63.4 LD SURGERY Comment on above: Anemia, unspecified type [D64.9]; Weight loss [R63.4 Start: 03-08-2024 End: 06-07-2024 Hemoglobin A1c in Blood HEMOGLOBIN A1C Lab Routine Type 2 diabetes mellitus with complication, with long-term current use of insulin (HCC) Expected: 03/08/2024, Expires: 06/07/2024 [facility] Work Phone: Comment on above: Expected: 03/08/2024, Expires: Start: 02-28-2024 End: 02-28-2024 Patient encounter procedure 02/28/2024 10:20 AM EST Office Visit [facility] [address] [place] [address] Marianna Wagner, SCREEN REPAIRER CRUSHER.[facility] [address] [place] [address] follow up diabetes [facility] Comment on above: follow up diabetes Start: 02-09-2024 Hemoglobin A1c measurement HbA1C [facility] Start: 01-17-2024 End: 04-17-2024 CBC W Auto Differential panel - Blood COMPLETE BLOOD COUNT AND DIFFERENTIAL Lab STAT Anemia, unspecified type Expected: 01/17/2024, Expires: 04/17/2024 [facility] Work Phone: Comment on above: Expected: 01/17/2024, Expires: Start: 01-14-2024 End: 01-14-2024 ambulatory [facility] Laboratory Comment on above: LABS? 2MO OV/LABS EARLY* Start: 01-07-2024 End: 01-07-2024 Patient encounter procedure 01/07/2024 10:00 AM EST Appointment Ambulatory Surgery [address] [facility] [place] [phone] Amy Kohli MD [address] [facility] [place], [place] [phone] Anemia, unspecified type [D64.9]; Weight loss [R63.4] Ambulatory Surgery Comment on above: Anemia, unspecified type [D64.9]; Weight loss [R63.4] Start: 12-31-2023 End: 12-31-2023 Anesthesia consultation 12/31/2023 11:59 PM EST Anesthesia Event Ambulatory Surgery [address] [facility] [place] [address] Sabra Desouza APRN.BLAST FURNACE CHECKER [address] [place], [place] [phone] Ambulatory Surgery Start: 12-27-2023 End: 12-27-2023 Patient encounter procedure 12/27/2023 2:00 PM EST Office Visit [facility] [address] [place], [place] [phone] Marianna Wagner SCREEN REPAIRER CRUSHER.PHYSICAL THERAPIST TECHNICIAN [address] [place], [place] [phone] 3 MTH F/U DM [facility] Comment on above: 3 MTH F/U DM Start: 12-24-2023 End: 12-24-2023 Patient encounter procedure 12/24/2023 11:20 AM EST Office Visit [facility] [place] [address] [facility] [place] [address] Susana Ramirez APRN.PHYSICAL THERAPIST TECHNICIAN [address] [facility] [place], [place] [phone] referred by pcp for anemia, currently being treated for e-coli and cdiff [facility] [place] Comment on above: referred by pcp for [...] PM EDT Appointment Cat Scan [address] [place] [address] Diarrhea, unspecified type [R19.7] Cat Scan Comment on above: Diarrhea, unspecified type [R19.7] Start: 11-15-2023 End: 11-15-2023 ambulatory 11/15/2023 10:30 AM EDT Visit (SP) Office Hematology/Oncology [address] [facility], [place] [phone] Vandana Edwards [address] [facility] [place] [address] ORDER FULFILLMENT SPECIALIST/ANEMIA/REF MARIANNA WAGNER* resched 10/24, 11/07 this date and time per patient Hematology/Oncology Comment on above: ORDER FULFILLMENT SPECIALIST/ANEMIA/REF MARIANNA WAGNER* resched , 11/07 this date and time per patient Start: 11-09-2023 End: 11-09-2023 Patient encounter procedure 11/09/2023 1:20 PM EDT Office Visit [facility] [address] [place] [address] Marianna Wagner, SCREEN REPAIRER CRUSHER.PHYSICAL THERAPIST TECHNICIAN [address] [place], [place] [phone] 3 MTH F/U DM [facility] Comment on above: 3 MTH F/U DM Start: 11-08-2023 End: 10-20-2024 CT Pancreas W contrast IV CT PANCREAS W IVCON Radiology Routine Diarrhea, unspecified type Acute pancreatitis, unspecified complication status, unspecified pancreatitis type Expected: 11/08/2023, Expires: 10/20/2024 [facility] Work Phone: Comment on above: Expected: 11/08/2023, Expires: Start: 11-08-2023 End: 11-08-2023 ambulatory 11/08/2023 10:30 AM EDT Visit (SP) Office Hematology/Oncology [address] [place], [place] [phone] Vandana Edwards [address] [place] [address] ORDER FULFILLMENT SPECIALIST/ANEMIA/REF MARIANNA QUEDEVYN* resched 10/24 this date and time per patient Hematology/Oncology Comment on above: ORDER FULFILLMENT SPECIALIST/ANEMIA/REF MARIANNA QUEDEN* resched this date and time per patient Start: 11-02-2023 End: 11-02-2023 Patient encounter procedure 11/02/2023 3:05 PM EDT Office Visit [facility] [place] [address] [facility] [place] [phone] Susana Ramirez, SCREEN REPAIRER CRUSHER.PHYSICAL THERAPIST TECHNICIAN [address] [facility] [place], [place] [phone] referred by pcp for anemia, currently being treated for e-coli and cdiff [facility] Comment on above: referred by pcp for anemia, currently be ing treated for e-coli and cdiff Start: 10-25-2023 End: 10-25-2023 ambulatory 10/25/2023 10:30 AM EDT Visit (SP) Office Hematology/Oncology [address] [place] [address] Vandana Edwards [address] [place], [place] [phone] ORDER FULFILLMENT SPECIALIST/ANEMIA/REF MARIANNAMANDY WAGNER* Hematology/Oncology Comment on above: ORDER FULFILLMENT SPECIALIST/ANEMIA/REF MARIANNA QUEDEN* Start: 10-21-2023 End: 10-21-2023 Patient encounter procedure 10/21/2023 2:20 PM EDT Appointment Cat Scan [address] [place] [address] CCN was accepted, Cat Scan Comment on above: CCN was accepted, Start: 10-14-2023 End: 10-14-2023 Patient encounter procedure 10/14/2023 11:20 AM EDT Office Visit [facility] [address] [place] [address] Marianna Wagner, SCREEN REPAIRER CRUSHER.PHYSICAL THERAPIST TECHNICIAN [address] [place] [address] Follow up blood work results [facility] Comment on above: Follow up blood work results Start: 10-10-2023 Covid-19 Vaccine ( season) Covid-19 Vaccine ( season) [facility] Start: 10-10-2023 Covid-19 Vaccine ( season) Covid-19 Vaccine () [facility] Start: 10-10-2023 Influenza vaccination Influenza Vaccine (#1) [facility] Start: 10-07-2023 End: 01-06-2024 CBC W Auto Differential panel - Blood COMPLETE BLOOD COUNT AND DIFFERENTIAL Lab Routine Anemia, unspecified type Expected: 10/07/2023, Expires: 01/06/2024 [facility] Comment on above: Expected: 10/07/2023, Expires: Start: 10-07-2023 End: 10-06-2024 Cobalamin (Vitamin B12) [Mass/volume] in Serum or Plasma VITAMIN B12 Lab Routine Anemia, unspecified type Expected: 10/07/2023, Expires: 10/06/2024 [facility] Comment on above: Expected: 10/07/2023, Expires: 5 Start: 10-07-2023 End: 01-06-2024 Comprehensive metabolic 2000 panel - Serum or Plasma COMPREHENSIVE METABOLIC PANEL Lab Routine Chronic diarrhea Expected: 10/07/2023, Expires: 01/06/2024 [facility] Comment on above: Expected: 10/07/2023, Expires: 4 Start: 10-07-2023 End: 10-06-2024 Ferritin [Mass/volume] in Serum or Plasma FERRITIN Lab Routine Anemia, unspecified type Expected: 10/07/2023, Expires: 10/06/2024 [facility] Comment on above: Expected: 10/07/2023, Expires: Start: 10-07-2023 End: 10-06-2024 Folate [Mass/volume] in Serum or Plasma FOLATE, SERUM Lab Routine Anemia, unspecified type Expected: 10/07/2023, Expires: 10/06/2024 [facility] Comment on above: Expected: 10/07/2023, Expires: Start: 10-07-2023 End: 10-06-2024 Iron and Iron binding capacity panel - Serum or Plasma IRON AND TIBC Lab Routine Anemia, unspecified type Expected: 10/07/2023, Expires: 10/06/2024 [facility] Work Phone: Comment on above: Expected: 10/07/2023, Expires: Start: 09-24-2023 End: 09-24-2023 Patient encounter procedure 09/24/2023 3:05 PM EDT Office Visit [facility] [address] [facility] [place] [address] Susana Ramirez APRN.PHYSICAL THERAPIST TECHNICIAN [address] [facility] [place] [address] referred by pcp for diarrhea(recent tests at [place]) [facility] Comment on above: referred by pcp for diarrhea(recent test s at [place]) Start: 09-24-2023 End: 12-24-2023 CBC W Auto Differential panel - Blood COMPLETE BLOOD COUNT AND DIFFERENTIAL Lab Routine Diarrhea of presumed infectious origin Generalized abdominal pain Expected: 09/24/2023, Expires: 12/24/2023 [facility] Comment on above: Expected: 09/24/2023, Expires: Start: 09-24-2023 End: 12-24-2023 Clostridioides difficile toxin genes [Presence] in Stool by GENEVA with probe detection C. DIFFICILE PCR Lab Routine Diarrhea of presumed infectious origin Expected: 09/24/2023, Expires: 12/24/2023 [facility] Comment on above: Expected: 09/24/2023, Expires: Start: 09-24-2023 End: 12-24-2023 Comprehensive metabolic 2000 panel - Serum or Plasma COMPREHENSIVE METABOLIC PANEL Lab Routine Diarrhea of presumed infectious origin Generalized abdominal pain Expected: 09/24/2023, Expires: 12/24/2023 [facility] Comment on above: Expected: 09/24/2023, Expires: 4 Start: 09-24-2023 End: 12-24-2023 Giardia lamblia+Cryptosporidium sp Ag [Presence] in Stool by Immunoassay CRYPTOSPORIDIUM AND GIARDIA ANTIGENS BY EIA Microbiology Routine Diarrhea of presumed infectious origin Expected: 09/24/2023, Expires: 12/24/2023 [facility] Comment on above: Expected: 09/24/2023, Expires: Start: 08-13-2023 End: 11-12-2023 Hemoglobin A1c in Blood [facility] Comment on above: Expected: 08/13/2023, Expires: Start: 05-20-2023 Patient discharge [facility] Start: 05-20-2023 Procedure discontinued [facility] Start: 05-19-2023 Administration of blood product [facility] Start: 05-15-2023 Application of elastic bandage [facility] Start: 05-13-2023 Referral to security sales manager [facility] Start: 05-11-2023 Referral to occupational therapist [facility] Start: 05-10-2023 Methicillin resistant Staphylococcus aureus screening test [facility] Start: 05-10-2023 Care regimes management [facility] Start: 05-10-2023 [facility] Start: 05-10-2023 Cardiac monitoring [facility] Start: 05-10-2023 Catheterization of vein [facility] Start: 05-10-2023 End: 05-10-2023 Notification of physician [facility] Start: 05-10-2023 Thyroid stimulating hormone measurement [facility] Start: 05-10-2023 End: 05-11-2023 [facility] Start: 05-09-2023 Application of intermittent pneumatic compression device [facility] Start: 05-09-2023 Following clinical pathway protocol [facility] Start: 05-09-2023 Aspiration precautions [facility] Start: 05-09-2023 Assessment of risk of venous thromboembolism [facility] Start: 05-09-2023 Documentation procedure [facility] Start: 05-09-2023 Incentive spirometry [facility] Start: 05-09-2023 Insertion of catheter into peripheral vein [facility] Start: 05-09-2023 Measuring intake and output [facility] Start: 05-09-2023 Oxygen therapy [facility] Start: 05-09-2023 Providing care according to standard [facility] Start: 05-09-2023 Provision of activity privileges [facility] Start: 05-09-2023 Referral to service [facility] Start: 05-09-2023 Seizure precautions [facility] Start: 05-09-2023 End: 05-10-2023 [facility] Start: 05-09-2023 Verification routine [facility] Start: 05-09-2023 Admission procedure [facility] Start: 05-09-2023 Patient referral to dietitian [facility] Start: 04-27-2023 Patient discharge [facility] Start: 04-23-2023 Referral to occupational therapist [facility] Start: 04-23-2023 End: 04-23-2023 Referral to service [facility] Start: 04-21-2023 [facility] Start: 04-20-2023 Following clinical pathway protocol [facility] Start: 04-20-2023 Ambulation without limitation [facility] Start: 04-20-2023 Assessment of risk of venous thromboembolism [facility] Start: 04-20-2023 Care regimes management [facility] Start: 04-20-2023 Insertion of catheter into peripheral vein [facility] Start: 04-20-2023 Notification of physician [facility] Start: 04-20-2023 Providing care according to standard [facility] Start: 04-20-2023 [facility] Start: 04-20-2023 Verification routine [facility] Start: 04-20-2023 Admission procedure [facility] Start: 04-20-2023 Blood chemistry [facility] Start: 04-20-2023 Triacylglycerol lipase measurement [facility] Start: 04-20-2023 [facility] Start: 10-09-2022 Covid-19 Vaccine ( season) Covid-19 Vaccine ( season) [facility] Start: 2022 Hepatitis B Vaccine (1 of 3 - Risk 3-dose series) Hepatitis B Vaccine (1 of 3 - Risk 3-dose series) [facility] Start: 2022 RSV Vaccine (1 - 1-dose 60+ series) RSV Vaccine (1 - 1-dose 60+ series) [facility] Start: 2022 RSV Vaccine (1 - Risk 60-74 years 1-dose series) RSV Vaccine (1 - Risk 60-74 years 1-dose series) [facility] Start: 03-24-2022 Patient discharge [facility] Start: 03-23-2022 Referral to service [facility] Start: 03-23-2022 Referral to occupational therapist [facility] Start: 03-21-2022 Aspiration precautions [facility] Start: 03-21-2022 Assessment of risk of venous thromboembolism [facility] Start: 03-21-2022 Care regimes management [facility] Start: 03-21-2022 Fall prevention [facility] Start: 03-21-2022 Introduction of urinary catheter [facility] Start: 03-21-2022 Notification of physician [facility] Start: 03-21-2022 Oxygen therapy [facility] Start: 03-21-2022 Referral to service [facility] Start: 03-21-2022 Vital signs measurements [facility] Start: 03-21-2022 [facility] Start: 03-21-2022 Verification routine [facility] Start: 03-21-2022 Admission procedure [facility] Start: 03-21-2022 Patient referral to dietitian [facility] Start: 02-04-2022 Patient discharge [facility] Start: 02-01-2022 Ambulation without limitation [facility] Start: 02-01-2022 Assessment of risk of venous thromboembolism [facility] Start: 02-01-2022 Care regimes management [facility] Start: 02-01-2022 Fall prevention [facility] Start: 02-01-2022 Inhalation therapy procedure [facility] Start: 02-01-2022 Insertion of catheter into peripheral vein [facility] Start: 02-01-2022 Measuring intake and output [facility] Start: 02-01-2022 Notification of physician [facility] Start: 02-01-2022 Oxygen therapy [facility] Start: 02-01-2022 Providing care according to standard [facility] Start: 02-01-2022 Provision of activity privileges [facility] Start: 02-01-2022 Referral to service [facility] Start: 02-01-2022 Vital signs measurements [facility] Start: 02-01-2022 [facility] Start: 02-01-2022 Following clinical pathway protocol [facility] Start: 02-01-2022 Verification routine [facility] Work Phone: Start: 02-01-2022 Admission procedure [facility] Start: 02-01-2022 Blood chemistry [facility] Work Phone: Start: 02-01-2022 Lipase measurement [facility] Work Phone: Start: 02-01-2022 End: 02-01-2022 [facility] Work Phone: Start: 02-01-2022 Patient referral to dietitian [facility] Start: 11-14-2021 Patient discharge [facility] Work Phone: Start: 11-11-2021 Assessment of risk of venous thromboembolism [facility] Work Phone: Start: 11-11-2021 Care regimes management [facility] Work Phone: Start: 11-11-2021 Insertion of catheter into peripheral vein [facility] Work Phone: Start: 11-11-2021 Introduction of urinary catheter [facility] Work Phone: Start: 11-11-2021 Measuring intake and output [facility] Work Phone: Start: 11-11-2021 Notification of physician [facility] Work Phone: Start: 11-11-2021 Providing care according to standard [facility] Work Phone: Start: 11-11-2021 Provision of activity privileges [facility] Work Phone: Start: 11-11-2021 Referral to service [facility] Work Phone: Start: 11-11-2021 Vital signs measurements [facility] Work Phone: Start: 11-11-2021 [facility] Work Phone: Start: 11-11-2021 Following clinical pathway protocol [facility] Work Phone: Start: 11-11-2021 Admission procedure [facility] Work Phone: Start: 11-11-2021 Patient referral to dietitian [facility] Work Phone: Start: 11-08-2021 Patient discharge [facility] Work Phone: Start: 11-06-2021 [facility] Work Phone: Start: 11-05-2021 Referral to service [facility] Work Phone: Start: 11-05-2021 Patient referral to dietitian [facility] Work Phone: Start: 11-05-2021 Ambulation without limitation [facility] Work Phone: Start: 11-05-2021 Assessment of risk of venous thromboembolism [facility] Work Phone: Start: 11-05-2021 Care regimes management [facility] Work Phone: Start: 11-05-2021 Insertion of catheter into peripheral vein [facility] Work Phone: Start: 11-05-2021 Notification of physician [facility] Work Phone: Start: 11-05-2021 Providing care according to standard [facility] Work Phone: Start: 11-05-2021 [facility] Work Phone: Start: 11-05-2021 Verification routine [facility] Work Phone: Start: 11-05-2021 Admission procedure [facility] Work Phone: Start: 11-05-2021 End: 11-05-2021 Following clinical pathway protocol [facility] Work Phone: Start: 11-05-2021 Patient discharge [facility] Work Phone: Start: 10-06-2021 Suicide precautions [facility] Work Phone: Start: 10-09-2018 Influenza vaccination INFLUENZA VACCINE (#1) [facility] Start: 03-23-2017 Diabetic foot examination Diabetic Foot Exam [facility] Start: 06-07-2016 Hemoglobin A1c measurement HbA1C [facility] Start: 2012 Colonoscopy COLON CANCER SCREENING DISCUSSION [facility] Start: 2012 Prostate specific antigen measurement PROSTATE CANCER SCREENING DISCUSSION [facility] Start: 2012 Shingrix Vaccine (1 of 2) Shingrix Vaccine (1 of 2) [facility] Start: 2012 Zoster vaccine hzv live for subcutaneous use ZOSTER (SHINGLES) VACCINE (1 of 2) [facility] Start: 07-30-2007 Screening for malignant neoplasm of colon [facility] Start: 2002 Fasting lipid profile LIPID SCREENING [facility] Start: 1981 Hepatitis A Vaccine (1 of 2 - Risk 2-dose series) Hepatitis A Vaccine (1 of 2 - Risk 2-dose series) [facility] Start: 1981 Pneumococcal Vaccine: 50+ (1 of 2 - PCV) Pneumococcal Vaccine: 50+ (1 of 2 - PCV) [facility] Start: 1981 Third diphtheria, tetanus and acellular pertussis (DTaP) vaccination TDAP (ADULT) [facility] Start: 1981 Urine microalbumin profile DTaP,Tdap,Td Vaccine (1 - Tdap) [facility] Start: 1980 Anxiety Screening Anxiety Screening [facility] Start: 1980 BP Controlled (<130/80) BP Controlled (<130/80) [facility] Start: 1980 Tetanus vaccination TETANUS [facility] Start: 07-30-1975 HIV screening HIV SCREENING DISCUSSION [facility] Start: 1972 Glaucoma screening Dilated Retinal Exam [facility] Start: 1972 Hepatitis B screening Urine Albumin:Creatinine Ratio [facility] Start: 1968 Pneumococcal vaccination Pneumococcal Vaccine (1 of 2 - PCV) [facility] Start: 1962 Hepatitis C antibody, confirmatory test HEPATITIS C VIRUS SCREENING [facility] Alanine aminotransfe rase [Enzymatic activity/volume] in Serum or Plasma [facility] Alanine aminotransfe rase [Enzymatic activity/volume] in Serum or Plasma [facility] Alanine aminotransfe rase [Enzymatic activity/volume] in Serum or Plasma [facility] Albumin [Mass/volume ] in Serum or Plasma [facility] Albumin [Mass/volume ] in Serum or Plasma [facility] Albumin [Mass/volume ] in Serum or Plasma [facility] Albumin [Moles/volum e] in Serum or Plasma [facility] [facility]Globulin [facility] Alkaline phosphatase [Enzymatic activity/volume] in Serum or Plasma [facility] Alkaline phosphatase [Enzymatic activity/volume] in Serum or Plasma [facility] Alkaline phosphatase [Enzymatic activity/volume] in Serum or Plasma [facility] Amphetamine [Mass/volume] in Urine [facility] Amphetamine [Mass/volume] in Urine [facility] Amphetamine [Mass/volume] in Urine [facility] Amphetamines [Presen ce] in Urine by Screen method >1000 ng/mL [facility] Anion gap in Serum o r Plasma [facility] Anion gap measurement [facility] Anion gap measurement [facility] Anion gap measurement [facility] Aspartate aminotransferase [Enzymatic activity/volume] in Serum or Plasma [facility] Aspartate aminotransferase [Enzymatic activity/volume] in Serum or Plasma [facility] Aspartate aminotransferase [Enzymatic activity/volume] in Serum or Plasma [facility] Bacteria identified in Unspecified specimen by Anaerobe culture [facility] Basic metabolic 2008 panel with ionized calcium - Serum or Plasma [facility] Benzodiazepine measurement, urine [facility] Benzodiazepine measurement, urine [facility] Benzodiazepine measurement, urine [facility] Benzodiazepine measurement, urine [facility] Bilirubin, total measurement [facility] Bilirubin, total measurement [facility] Bilirubin, total measurement [facility] Bilirubin.direct [Mass/volume] in Serum or Plasma [facility] BUN/Creatinine ratio [facility] BUN/Creatinine ratio [facility] BUN/Creatinine ratio [facility] BUN/Creatinine ratio [facility] Calcium [Mass/volume ] in Serum or Plasma [facility] Calcium [Mass/volume ] in Serum or Plasma [facility] Calcium [Mass/volume ] in Serum or Plasma [facility] Calcium [Mass/volume ] in Serum or Plasma [facility] Carbon dioxide, tota l [Moles/volume] in Central venous blood [facility] Carbon dioxide, tota l [Moles/volume] in Serum or Plasma [facility] Carbon dioxide, tota l [Moles/volume] in Serum or Plasma [facility] Carbon dioxide, tota l [Moles/volume] in Serum or Plasma [facility] Chloride [Moles/volu me] in Serum or Plasma [facility] Chloride [Moles/volu me] in Serum or Plasma [facility] Chloride [Moles/volu me] in Serum or Plasma [facility] Clostridioides diffi cile DNA [Presence] in Unspecified specimen by GENEVA with probe detection [facility] Clostridioides diffi cile toxin genes [Presence] in Stool by GENEVA with probe detection C. DIFFICILE PCR Lab Routine Chronic diarrhea Ordered: 08/09/2023 [facility] Comment on above: Ordered: 08/09/2023 Cocaine measurement, urine [facility] Cocaine measurement, urine [facility] Cocaine measurement, urine [facility] Cocaine measurement, urine [facility] Creatinine [Mass/vol ume] in Serum or Plasma [facility] Creatinine [Moles/volume] in Serum or Plasma [facility] Creatinine [Moles/volume] in Serum or Plasma [facility] Creatinine [Moles/volume] in Serum or Plasma [facility] End: 11-12-2024 CT Abdomen and Pelvis WO contrast CT ABD/PEL WO IVCON Radiology Routine Generalized abdominal pain Diarrhea of presumed infectious origin Weight loss Alcohol-induced chronic pancreatitis (HCC) 1 Occurrences starting 10/14/2023 until 11/12/2024 [facility] Work Phone: Comment on above: 1 Occurrences starting 10/14/2023 until 11/12/2024 End: 01-05-2025 CT Pancreas W contrast IV CT PANCREAS W IVCON Radiology Routine Diarrhea, unspecified type Acute pancreatitis, unspecified complication status, unspecified pancreatitis type 1 Occurrences starting 12/07/2023 until 01/05/2025 [facility] Work Phone: Comment on above: 1 Occurrences starting 12/07/2023 until 01/05/2025 CT Pancreas W contra st IV CT PANCREAS W IVCON Radiology Routine Diarrhea, unspecified type Acute pancreatitis, unspecified complication status, unspecified pancreatitis type 12/08/2023 11:00 AM EDT [facility] Work Phone: Cytology report of B francisco fluid Cyto stain [facility] End: 12-23-2024 EGD DIAGNOSTIC EGD DIAGNOSTIC Endoscopy Routine Anemia, unspecified type Weight loss Chronic pancreatitis, unspecified pancreatitis type (HCC) Epigastric pain 1 Occurrences starting 12/24/2023 until 12/23/2024 [facility] Comment on above: 1 Occurrences starting 12/24/2023 until 12/23/2024 Electrophoresis: [id number] [facility] Electrophoresis: eleuterio ma globulin [facility] Erythrocyte mean corpuscular volume determination [facility] Erythrocyte mean corpuscular volume determination [facility] Erythrocyte mean corpuscular volume determination [facility] Ethanol [Mass/volume ] in Serum or Plasma [facility] fentaNYL [Presence] in Urine by Screen method [facility] End: 12-23-2024 Flexible sigmoidoscopy study COLONOSCOPY DIAGNOSTIC Endoscopy Routine Anemia, unspecified type Weight loss 1 Occurrences starting 12/24/2023 until 12/23/2024 [facility] Work Phone: Comment on above: 1 Occurrences starting 12/24/2023 until 12/23/2024 Giardia lamblia+Cryptosporidium sp Ag [Presence] in Stool by Immunoassay CRYPTOSPORIDIUM AND GIARDIA ANTIGENS BY EIA Microbiology Routine Chronic diarrhea Ordered: 08/09/2023 [facility] Comment on above: Ordered: 08/09/2023 Gliadin peptide IgA Ab [Units/volume] in Serum [facility] Gliadin peptide IgG Ab [Units/volume] in Serum [facility] Globulin measurement [facility] Glucose [Mass/volume ] in Serum or Plasma [facility] Glucose [Mass/volume ] in Serum or Plasma [facility] Glucose [Mass/volume ] in Serum or Plasma [facility] Glucose [Mass/volume ] in Serum or Plasma [facility] Hematocrit [Volume Fraction] of Blood [facility] Hematocrit [Volume Fraction] of Blood [facility] Hematocrit [Volume Fraction] of Blood [facility] Hemoglobin [Mass/vol ume] in Blood [facility] Hemoglobin [Mass/vol ume] in Blood [facility] Hemoglobin [Mass/vol ume] in Blood [facility] Hemoglobin A1c/Hemoglobin.total in Blood [facility] Hemoglobin.gastroint gurwinder nal.lower [Presence] in Stool by Immunoassay IMMUNOCHEMICAL FECAL OCCULT BLOOD TEST Lab Routine Anemia, unspecified type Ordered: 08/11/2023 [facility] Work Phone: Comment on above: Ordered: 08/11/2023 Hemoglobin.gastroint gurwinder nal.lower [Presence] in Stool by Immunoassay IMMUNOCHEMICAL FECAL OCCULT BLOOD TEST Lab Routine Diarrhea of presumed infectious origin Ordered: 09/24/2023 [facility] Comment on above: Ordered: 09/24/2023 Hepatitis A virus Ig M Ab [Presence] in Serum [facility] Hepatitis B core antibody measurement, IgM type [facility] Hepatitis B surface antigen measurement [facility] Hepatitis C antibody measurement [facility] IgA [Mass/volume] in Serum or Plasma [facility] IgG [Mass/volume] in Serum or Plasma [facility] IgM [Mass/volume] in Serum or Plasma [facility] In-vitro immunologic test [facility] Laboratory data interpretation [facility] Lactic acid measurement [facility] Lactoferrin [Presenc e] in Stool by Immunoassay [facility] Leukocytes [#/volume ] in Blood [facility] Leukocytes [#/volume ] in Blood [facility] Leukocytes [#/volume ] in Blood [facility] Magnesium [Mass/volu me] in Serum or Plasma [facility] Magnesium measurement [facility] Mean corpuscular hemoglobin concentration determination [facility] Mean corpuscular hemoglobin concentration determination [facility] Mean corpuscular hemoglobin concentration determination [facility] Mean corpuscular hemoglobin determination [facility] Mean corpuscular hemoglobin determination [facility] Mean corpuscular hemoglobin determination [facility] Measurement of 3,4-methylenedioxymetham phetamine in urine [facility] Measurement of 3,4-methylenedioxymetham phetamine in urine [facility] Measurement of 3,4-methylenedioxymetham phetamine in urine [facility] Measurement of immunoglobulin A in serum specimen [facility] Measurement of renal function [facility] Measurement of renal function [facility] Measurement of renal function [facility] Measurement of renal function [facility] Methadone measuremen t, urine [facility] Methadone measuremen t, urine [facility] Methadone measuremen t, urine [facility] Methadone measuremen t, urine [facility] Mycobacterium tuberculosis tuberculin stimulated gamma interferon [Presence] in Blood [facility] Neutrophil count [facility] Neutrophil count [facility] Neutrophil count [facility] Neutrophil cytoplasm ic Ab.classic [Units/volume] in Serum [facility] Neutrophil percent differential count [facility] Neutrophil percent differential count [facility] Neutrophil percent differential count [facility] Nucleic acid assay [facility] Ova and parasites identified in Unspecified specimen by Light microscopy OVA + PARA MICROSCOPIC Microbiology Routine Chronic diarrhea Ordered: 08/09/2023 [facility] Comment on above: Ordered: 08/09/2023 Ova and parasites identified in Unspecified specimen by Light microscopy OVA + PARA MICROSCOPIC Microbiology Routine Diarrhea of presumed infectious origin Ordered: 09/24/2023 [facility] Work Phone: Comment on above: Ordered: 09/24/2023 Ova OR parasites identification [facility] P-ANCA measurement [facility] Patient Education [facility] Work Phone: Patient referral [facility] Work Phone: pH of Urine [facility] pH of Urine [facility] pH of Urine [facility] Phencyclidine [Prese nce] in Urine [facility] Phencyclidine [Prese nce] in Urine [facility] Phencyclidine [Prese nce] in Urine [facility] Phencyclidine [Prese nce] in Urine [facility] Platelets [#/volume] in Blood [facility] Platelets [#/volume] in Blood [facility] Platelets [#/volume] in Blood [facility] Potassium [Moles/vol ume] in Serum or Plasma [facility] Potassium [Moles/vol ume] in Serum or Plasma [facility] Potassium [Moles/vol ume] in Serum or Plasma [facility] Potassium measurement [facility] Protein electrophore sis panel - Serum or Plasma [facility] Red blood cell count [facility] Red blood cell count [facility] Red blood cell count [facility] Red cell distributio n width determination [facility] Red cell distributio n width determination [facility] Red cell distributio n width determination [facility] Serum chloride measurement [facility] Serum inorganic phosphate measurement [facility] Sodium [Moles/volume ] in Serum or Plasma [facility] Sodium [Moles/volume ] in Serum or Plasma [facility] Sodium [Moles/volume ] in Serum or Plasma [facility] Sodium measurement [facility] Tissue Pathology bio psy report [facility] Work Phone: Comment on above: Release Upon Ordering for 1 Occurrences starting 04/05/2024, 1 completed Tissue transglutamin ase IgA Ab [Units/volume] in Serum [facility] Total protein measurement [facility] Total protein measurement [facility] Total protein measurement [facility] UA DIP B/O UA DIP B/O Lab R outine Dysuria Ordered: 08/09/2023 [facility] Work Phone: Comment on above: Ordered: 08/09/2023 Urea nitrogen [Mass/volume] in Serum or Plasma [facility] Urea nitrogen [Mass/volume] in Serum or Plasma [facility] Urea nitrogen [Mass/volume] in Serum or Plasma [facility] Urea nitrogen [Mass/volume] in Serum or Plasma [facility] Urine barbiturate measurement [facility] Urine barbiturate measurement [facility] Urine barbiturate measurement [facility] Urine cannabinoid measurement [facility] Urine cannabinoid measurement [facility] Urine cannabinoid measurement [facility] Urine cannabinoid measurement [facility] Urine immunofixation [facility] Urine opiate measurement [facility] Urine opiate measurement [facility] Urine opiate measurement [facility] Urine opiate measurement [facility] US Abdomen limited [facility] Immunizations Immunization Date Immunization Notes Care Provider Fa cility 11-06-2021 influenza, injectabl e, quadrivalent, preservative free [facility] 11-06-2021 influenza, seasonal, injectable ORDER FULFILLMENT SPECIALIST-C Andreas Pathak ORDER FULFILLMENT SPECIALIST Work Phone: [facility] 11-06-2021 influenza virus vaccine, unspecified formulation Marianna Wagner SCREEN REPAIRER CRUSHER.PHYSICAL THERAPIST TECHNICIAN Work Phone: [facility] 01-07-2021 influenza, injectabl e, quadrivalent, contains preservative; Translations: [Fluarix PF Quadrivalent ] ANDREAS PATHAK SCREEN REPAIRER CRUSHER - PHYSICAL THERAPIST TECHNICIAN [facility] 01-07-2021 influenza, injectabl e, quadrivalent, preservative free ORDER FULFILLMENT SPECIALIST-C Andreas Pathak ORDER FULFILLMENT SPECIALIST Work Phone: [facility] 02-09-2020 influenza, injectabl e, quadrivalent, preservative free [facility] 02-09-2020 influenza, seasonal, injectable [facility] 12-09-2018 influenza, injectabl e, quadrivalent, preservative free; Translations: [Fluarix PF Quadrivalent ] ANDREAS PATHAK SCREEN REPAIRER CRUSHER - PHYSICAL THERAPIST TECHNICIAN [facility] 11-10-2017 influenza, injectabl e, quadrivalent, preservative free ANDREAS PATHAK SCREEN REPAIRER CRUSHER - PHYSICAL THERAPIST TECHNICIAN [facility] 11-08-2017 influenza virus vaccine, unspecified formulation DR SHILPI BURNS MD [facility] 11-08-2017 influenza, injectabl e, quadrivalent, preservative free ORDER FULFILLMENT SPECIALIST-C Andreas Pathak ORDER FULFILLMENT SPECIALIST Work Phone: [facility] 10-12-2017 influenza, injectabl e, quadrivalent, preservative free [facility] 10-12-2017 influenza, seasonal, injectable [facility] 12-09-2016 influenza virus vaccine, unspecified formulation DR SHILPI BURNS MD [facility] 12-09-2016 Seasonal, quadrivalent, recombinant, injectable influenza vaccine, preservative free ORDER FULFILLMENT SPECIALIST-C Andreas Zo ORDER FULFILLMENT SPECIALIST Work Phone: [facility] 11-29-2016 influenza virus vaccine, unspecified formulation DR SHILPI BURNS MD [facility] 11-29-2016 influenza, injectabl e, quadrivalent, preservative free [facility] 11-29-2016 influenza, seasonal, injectable [facility] 11-29-2016 Seasonal, quadrivalent, recombinant, injectable influenza vaccine, preservative free ORDER FULFILLMENT SPECIALIST-C Andreas Camarg[place]ins ORDER FULFILLMENT SPECIALIST Work Phone: [facility] 12-10-2015 influenza virus vaccine, unspecified formulation DR SHILPI BURNS MD [facility] 12-10-2015 Seasonal, quadrivalent, recombinant, injectable influenza vaccine, preservative free ORDER FULFILLMENT SPECIALIST-C Andreas Zo ORDER FULFILLMENT SPECIALIST Work Phone: [facility] 10-23-2014 influenza virus vaccine, unspecified formulation DR SHILPI BURNS MD [facility] 10-23-2014 Seasonal, quadrivalent, recombinant, injectable influenza vaccine, preservative free ORDER FULFILLMENT SPECIALIST-C Andreas Luxpkins ORDER FULFILLMENT SPECIALIST Work Phone: [facility] Payers Date Payer Category Payer Medicare [id number] 2024 Self-pay [id number] 2023 Medicaid [id number] 2022 Unknown [id number] 2022 Medicaid [id number] 2022 Unknown [id number] 2022 Medicaid [id number] 2018 Unknown MULTIPLAN MULTIP SAMY xxxxxxxxx 2018-Present xxxxxxxxx [id number] [id number] 2016 Unknown [id number] 1962 Unknown [id number] 2..840.1.208108.3.579.2. 1962 Unknown [id number] 2.16.840.1.704330.3.579.2. 1962 Unknown [id number] 2..840.1.107635.3.579.2. 1962 Unknown [id number] .840.1.212178.3.579.2. 1962 Unknown [id number] 2.16.840.1.440298.3.579.2. 1962 Unknown [id number] 2.16.840.1.260047.3.579.2. 1962 Unknown [id number] 2.16840.1.079896.3.579.2.627 1962 Unknown [id number] 2.16.840.1.261535.3.579.2. 1962 Unknown [id number] 2.16.840.1.235088.3.579.2.627 1962 Unknown [id number] 2.16.840.1.610937.3.579.2.627 1962 Unknown [id number] 2.16.840.1.636930.3.579.2.627 1962 Unknown [id number] 2.16.840.1.043524.3.579.2.627 1962 Unknown [id number] 2.16.840.1.505613.3.579.2.627 1962 Unknown [id number] 2.16.840.1.480598.3.579.2.627 1962 Unknown [id number] 2.16.840.1.482265.3.579.2.278 1962 Unknown [id number] 2.840.1.583591.3.579.2.278 1962 Unknown [id number] 2.16.840.1.672576.3.579.2.278 1962 Unknown [id number] 2.16.840.1.453456.3.579.2.278 1962 Unknown [id number] 2.16.840.1.666084.3.579.2.278 Unknown [id number] 2.16840.1.497626.3.579.2.462 Unknown [id number] 2.16.840.1.907308.3.579.2.462 Unknown [id number] 2.16.840.1.586554.3.579.2.462 Unknown [id number] 2.16.840.1.013286.3.579.2.462 Unknown [id number] 2.16.840.1.546306.3.579.2.462 Unknown [id number] 2.16.840.1.755598.3.579.2.462 Unknown [id number] 2.16.840.1.862271.3.579.2.462 Unknown [id number] 2.16.840.1.739866.3.579.2.462 Unknown [id number] 2.16.840.1.554765.3.579.2.462 Unknown [id number] 2.16.840.1.089266.3.579.2.462 Unknown [id number] 2.16.840.1.189780.3.579.2.462 Unknown [id number] 2.16.840.1.118840.3.579.2.462 Unknown [id number] 2.16.840.1.401341.3.579.2.462 Unknown [id number] 2.16.840.1.628166.3.579.2.462 Unknown [id number] 2.16.840.1.080831.3.579.2.462 Unknown [id number] 2.16.840.1.370230.3.579.2.462 Unknown [id number] 2.16.840.1.305442.3.579.2.462 Unknown [id number] 2.16.840.1.355265.3.579.2.462 Unknown [id number] 2.16.840.1.338509.3.579.2.462 Unknown [id number] 2.16.840.1.959934.3.579.2.462 Unknown [id number] 2.16.840.1.313932.3.579.2.462 Unknown [id number] 2.16.840.1.473478.3.579.2.462 Unknown [id number] 2.16.840.1.248993.3.579.2.462 Unknown [id number] 2.16.840.1.178645.3.579.2.462 Unknown [id number] 2.16.840.1.956468.3.579.2.462 Unknown [id number] 2.16.840.1.016475.3.579.2.462 Unknown [id number] 2.16.840.1.425788.3.579.2.462 Unknown [id number] 2.16.840.1.694755.3.579.2.462 Unknown [id number] 2.16.840.1.210149.3.579.2.462 Unknown [id number] 2.16.840.1.399087.3.579.2.462 Unknown [id number] 2.16.840.1.743685.3.579.2.462 Unknown [id number] 2.16.840.1.178987.3.579.2.462 Unknown [id number] 2.16.840.1.048429.3.579.2.462 Unknown [id number] 2.16.840.1.994535.3.579.2.462 Unknown [id number] 2.16.840.1.122748.3.579.2.462 Unknown [id number] 2.16.840.1.571845.3.579.2.462 Unknown [id number] 2.16.840.1.090204.3.579.2.462 Unknown [id number] 2.16.840.1.345264.3.579.2.462 Unknown [id number] 2.16.840.1.873436.3.579.2.462 Unknown [id number] 2.16.840.1.612116.3.579.2.462 Unknown [id number] 2.16.840.1.319811.3.579.2.462 Unknown [id number] 2.16.840.1.075684.3.579.2.462 Unknown [id number] 2.16.840.1.475785.3.579.2.462 Unknown [id number] 2.16.840.1.210744.3.579.2.462 Unknown [id number] 2.16.840.1.289300.3.579.2.462 Unknown [id number] 2.16.840.1.347639.3.579.2.462 Unknown [id number] 2.16.840.1.310188.3.579.2.462 Unknown [id number] 2.16.840.1.608192.3.579.2.462 Unknown [id number] 2.16.840.1.937018.3.579.2.462 Unknown [id number] 2.16.840.1.396969.3.579.2.462 Unknown [id number] 2.16.840.1.587247.3.579.2.462 Unknown [id number] 2.16.840.1.245142.3.579.2.462 Unknown [id number] 2.16.840.1.388707.3.579.2.462 Unknown [id number] 2.16.840.1.361797.3.579.2.462 Unknown [id number] 2.16.840.1.994427.3.579.2.462 Unknown [id number] 2.16.840.1.807262.3.579.2.462 Unknown [id number] 2.16.840.1.357075.3.579.2.462 Unknown [id number] 2.16.840.1.467143.3.579.2.462 Unknown [id number] 2.16.840.1.355686.3.579.2.462 Unknown [id number] 2.16.840.1.091493.3.579.2.462 Unknown [id number] 2.16.840.1.285643.3.579.2.462 Unknown [id number] 2.16.840.1.319523.3.579.2.462 Unknown [id number] 2.16.840.1.542475.3.579.2.462 Unknown [id number] 2.16.840.1.586843.3.579.2.462 Unknown [id number] 2.16.840.1.555614.3.579.2.462 Unknown [id number] 2.16.840.1.953844.3.579.2.462 Unknown [id number] 2.16.840.1.256129.3.579.2.462 Unknown [id number] 2.16.840.1.940096.3.579.2.462 Unknown [id number] 2.16.840.1.523280.3.579.2.462 Unknown [id number] 2.16.840.1.038877.3.579.2.462 Unknown [id number] 2.16.840.1.160581.3.579.2.462 Unknown [id number] 2.16.840.1.374290.3.579.2.462 Social History Date Type Detail Facility Tobacco smoking stat us NJIS Unknown if ever smoked [facility] Start: 1960 Sex Assigned At Not on file [facility] Start: 09-06-2018 End: 03-29-2023 Heavy tobacco smoker (finding) [facility] Comment on above: No smoke exposure Start: 1960 Sex Assigned At Male A [facility] Start: 05-04-2021 End: 05-11-2023 Tobacco smoking status [facility] if [facility] Start: 09-08-2019 Heavy [facility] Start: 09-08-2019 None [place] [facility] Start: 06-07-2018 Alone [place] [facility] Start: 05-11-2020 [facility] Start: 08-09-2023 End: 11-15-2023 Tobacco smoking status NHIS Smokes tobacco daily [facility] Start: 02-08-2023 End: 03-09-2016 History of tobacco use Cigarette Smoker [facility] Start: 08-09-2023 End: 10-18-2024 Cigarettes smoked current (pack per day) - Reported 0.5 [facility] Start: 08-09-2023 End: 11-15-2023 Tobacco use and exposure Smokeless tobacco non-user [facility] Start: 08-09-2023 End: 04-12-2024 Alcohol intake Current drinker of alcohol (finding) [facility] Start: 08-09-2023 End: 10-18-2024 Tobacco use panel [facility] Start: 03-09-2016 Adult Depression Screening Assessment 0 [facility] Start: 10-14-2023 [facility] Start: 11-15-2023 Tobacco Comment Pt smoked 1 pa ck daily for x 40 years, pt has cut back to 1 pack per week x 1 year [facility] Start: 11-24-2018 Sex Male (finding) [facility] Start: 08-28-2024 End: 10-12-2024 Tobacco smoking status NHIS Current Light tobacco smoker [facility] (I/We) worried wheth er (my/our) food would run out before (I/we) got money to buy more. Never true [facility] Work Phone: In the past 12 month s, was there a time when you were not able to pay the mortgage or rent on time? No [facility] Medical Equipment Procedure Code Equipment [...] TID, # 100 EA, 11 Refill(s), Pharmacy: [facility], 180.3, cm, 02/14/21 8:43:00 EST, Height, 73.3, kg, 02/14/21 8:43:00 EST, Dosing Weight Start: 04-04-2021 See Instructions , 1 bottle of 100- PATIENT TESTS 2-3 TIMES PER DAY, # 1 EA, 11 Refill(s), Pharmacy: [facility], 176.5, cm, 05/02/21 11:34:00 EDT, Height, 73.2, kg, 05/02/21 13:04:00 EDT, Dosing Weight Start: 05-02-2021 See Instructions , qs 1 month supply-PATIENT TESTS 2-3 TIMES PER DAY, # 1 EA, 11 Refill(s), Pharmacy: [facility] 074, 176.5, cm, 05/02/21 11:34:00 EDT, Height, 73.2, kg, 05/02/21 13:04:00 EDT, Dosing Weight Start: 05-02-2021 ONE TOUCH ULTRA BLUE TEST STRP, See Instructions, USE 1 STRIP THREE TIMES A DAY TO TEST BLOOD SUGAR, # 100 strip, 11 Refill(s), Pharmacy: [facility] [address], 180.3, cm, 04/13/19 10:19:00 EST, Height, 81.7, [...] TID, # 100 EA, 11 Refill(s), Pharmacy: [facility], 180.3, cm, 02/14/21 8:43:00 EST, Height, 73.3, kg, 02/14/21 8:43:00 EST, Dosing Weight Start: 04-04-2021 See Instructions , 1 bottle of 100- PATIENT TESTS 2-3 TIMES PER DAY, # 1 EA, 0 Refill(s), Pharmacy: [facility], 176.5, cm, 12/23/21 10:15:00 EST, Height, 68.2, kg, 12/23/21 10:15:00 EST, Dosing Weight Start: 04-09-2022 See Instructions , qs 1 month supply-PATIENT TESTS 2-3 TIMES PER DAY, # 1 EA, 0 Refill(s), Pharmacy: [facility], 176.5, cm, 12/23/21 10:15:00 EST, Height, 68.2, kg, 12/23/21 10:15:00 EST, Dosing Weight Start: 04-09-2022 ONE TOUCH ULTRA BLUE TEST STRP, See Instructions, USE 1 STRIP THREE TIMES A DAY TO TEST BLOOD SUGAR, # 100 strip, 11 Refill(s), Pharmacy: [facility] [id number], 180.3, cm, 04/13/19 10:19:00 EST, Height, 81.7, [...] 100 EA, 11 Refill(s), Pharmacy: [facility] 074, 180.3, cm, 02/14/21 8:43:00 EST, Height, 73.3, kg, 02/14/21 8:43:00 EST, Dosing Weight Start: 04-04-2021 See Instructions , 1 bottle of 100- PATIENT TESTS 2-3 TIMES PER DAY, # 1 EA, 0 Refill(s), Pharmacy: [facility], 176.5, cm, 12/23/21 10:15:00 EST, Height, 68.2, kg, 12/23/21 10:15:00 EST, Dosing Weight Start: 04-09-2022 See Instructions , qs 1 month supply-PATIENT TESTS 2-3 TIMES PER DAY, # 1 EA, 0 Refill(s), Pharmacy: [facility], 176.5, cm, 12/23/21 10:15:00 EST, Height, 68.2, kg, 12/23/21 10:15:00 EST, Dosing Weight Start: 04-09-2022 ONE TOUCH ULTRA BLUE TEST STRP, See Instructions, USE 1 STRIP THREE TIMES A DAY TO TEST BLOOD SUGAR, # 100 strip, 11 Refill(s), Pharmacy: [facility], 180.3, cm, 04/13/19 10:19:00 EST, Height, 81.7, [...] TID, # 100 EA, 11 Refill(s), Pharmacy: [facility], 180.3, cm, 02/14/21 8:43:00 EST, Height, 73.3, kg, 02/14/21 8:43:00 EST, Dosing Weight Start: 04-04-2021 See Instructions , 1 bottle of 100- PATIENT TESTS 2-3 TIMES PER DAY, # 1 EA, 0 Refill(s), Pharmacy: [facility], 176.5, cm, 12/23/21 10:15:00 EST, Height, 68.2, kg, 12/23/21 10:15:00 EST, Dosing Weight Start: 04-09-2022 See Instructions , qs 1 month supply-PATIENT TESTS 2-3 TIMES PER DAY, # 1 EA, 0 Refill(s), Pharmacy: [facility], 176.5, cm, 12/23/21 10:15:00 EST, Height, 68.2, kg, 12/23/21 10:15:00 EST, Dosing Weight Start: 04-09-2022 ONE TOUCH ULTRA BLUE TEST STRP, See Instructions, USE 1 STRIP THREE TIMES A DAY TO TEST BLOOD SUGAR, # 100 strip, 11 Refill(s), Pharmacy: [facility] [address]366, 180.3, cm, 04/13/19 10:19:00 EST, Height, 81.7, [...] TID, # 100 EA, 11 Refill(s), Pharmacy: [facility], 180.3, cm, 02/14/21 8:43:00 EST, Height, 73.3, kg, 02/14/21 8:43:00 EST, Dosing Weight Start: 04-04-2021 See Instructions , 1 bottle of 100- PATIENT TESTS 2-3 TIMES PER DAY, # 1 EA, 0 Refill(s), Pharmacy: [facility], 176.5, cm, 12/23/21 10:15:00 EST, Height, 68.2, kg, 12/23/21 10:15:00 EST, Dosing Weight Start: 04-09-2022 See Instructions , qs 1 month supply-PATIENT TESTS 2-3 TIMES PER DAY, # 1 EA, 0 Refill(s), Pharmacy: [facility], 176.5, cm, 12/23/21 10:15:00 EST, Height, 68.2, kg, 12/23/21 10:15:00 EST, Dosing Weight Start: 04-09-2022 ONE TOUCH ULTRA BLUE TEST STRP, See Instructions, USE 1 STRIP THREE TIMES A DAY TO TEST BLOOD SUGAR, # 100 strip, 11 Refill(s), Pharmacy: [facility] 27929, 180.3, cm, 04/13/19 10:19:00 EST, Height, 81.7, [...] 100 EA, 11 Refill(s), Pharmacy: [facility] 074, 180.3, cm, 02/14/21 8:43:00 EST, Height, 73.3, kg, 02/14/21 8:43:00 EST, Dosing Weight Start: 04-04-2021 See Instructions , 1 bottle of 100- PATIENT TESTS 2-3 TIMES PER DAY, # 1 EA, 0 Refill(s), Pharmacy: [facility], 176.5, cm, 12/23/21 10:15:00 EST, Height, 68.2, kg, 12/23/21 10:15:00 EST, Dosing Weight Start: 04-09-2022 See Instructions , qs 1 month supply-PATIENT TESTS 2-3 TIMES PER DAY, # 1 EA, 0 Refill(s), Pharmacy: [facility], 176.5, cm, 12/23/21 10:15:00 EST, Height, 68.2, kg, 12/23/21 10:15:00 EST, Dosing Weight Start: 04-09-2022 ONE TOUCH ULTRA BLUE TEST STRP, See Instructions, USE 1 STRIP THREE TIMES A DAY TO TEST BLOOD SUGAR, # 100 strip, 11 Refill(s), Pharmacy: [facility] [address]498, 180.3, cm, 04/13/19 10:19:00 EST, Height, 81.7, [...] TID, # 100 EA, 11 Refill(s), Pharmacy: [facility], 180.3, cm, 02/14/21 8:43:00 EST, Height, 73.3, kg, 02/14/21 8:43:00 EST, Dosing Weight Start: 04-04-2021 See Instructions , 1 bottle of 100- PATIENT TESTS 2-3 TIMES PER DAY, # 1 EA, 0 Refill(s), Pharmacy: [facility], 176.5, cm, 12/23/21 10:15:00 EST, Height, 68.2, kg, 12/23/21 10:15:00 EST, Dosing Weight Start: 04-09-2022 See Instructions , qs 1 month supply-PATIENT TESTS 2-3 TIMES PER DAY, # 1 EA, 0 Refill(s), Pharmacy: [facility], 176.5, cm, 12/23/21 10:15:00 EST, Height, 68.2, kg, 12/23/21 10:15:00 EST, Dosing Weight Start: 04-09-2022 See Instructions , One Touch Ultra Blue Testi Strips 1 bottle of 100 Use 1 strip to test BS TID, # 100 EA, 11 Refill(s), Pharmacy: [facility], 180.3, cm, 02/14/21 8:43:00 EST, Height, 73.3, kg, 02/14/21 8:43:00 EST, Dosing Weight Start: 04-04-2021 See Instructions , 1 bottle of 100- PATIENT TESTS 2-3 TIMES PER DAY, # 1 EA, 0 Refill(s), Pharmacy: [facility], 176.5, cm, 12/23/21 10:15:00 EST, Height, 68.2, kg, 12/23/21 10:15:00 EST, Dosing Weight Start: 04-09-2022 See Instructions , qs 1 month supply-PATIENT TESTS 2-3 TIMES PER DAY, # 1 EA, 0 Refill(s), Pharmacy: [facility], 176.5, cm, 12/23/21 10:15:00 EST, Height, 68.2, kg, 12/23/21 10:15:00 EST, Dosing Weight Start: 04-09-2022 Graft Gelweave 2 8mm Straight Gelatin Polyester Woven 30cm Cardiovascular - [id number] Start: 03-19-2016 Graft Gelweave V alsalva Vascutek 36mm 28mm Gelatin Woven 15cm 28mm - [id number] Start: 03-19-2016 [place] Thk1.65mm P tfe 4x.5in Cardiovascular Sterile - [id number] Start: 03-19-2016 Graft Gelweave 8 mm Straight Gelatin Polyester Woven 30cm Cardiovascular - [id number] Start: 03-19-2016 Patch Thk.2-.4mm Bovine Pericardium Encap 14x9cm Cardiovascular Soft - [id number] Start: 03-19-2016 Valve Aort 23mm Crp-Ed Thfx - [id number] Start: 03-19-2016 [id number] Start: 03-28-2016 End: 11-26-2023 See Instructions , One Touch Ultra Blue Testi Strips 1 bottle of 100 Use 1 strip to test BS TID, # 100 EA, 11 Refill(s), Pharmacy: [facility] 074, 180.3, cm, 02/14/21 8:43:00 EST, Height, 73.3, kg, 02/14/21 8:43:00 EST, Dosing Weight Start: 04-04-2021 See Instructions , 1 bottle of 100- PATIENT TESTS 2-3 TIMES PER DAY, # 1 EA, 0 Refill(s), Pharmacy: [facility], 176.5, cm, 12/23/21 10:15:00 EST, Height, 68.2, kg, 12/23/21 10:15:00 EST, Dosing Weight Start: 04-09-2022 See Instructions , qs 1 month supply-PATIENT TESTS 2-3 TIMES PER DAY, # 1 EA, 0 Refill(s), Pharmacy: [facility], 176.5, cm, 12/23/21 10:15:00 EST, Height, 68.2, kg, 12/23/21 10:15:00 EST, Dosing Weight Start: 04-09-2022 1 Each three wilbur es a day. [id number] Start: 11-26-2023 End: 02-21-2024 USE ONE 3 TIMES DAILY [id number] Sta rt: 02-21-2024 See Instructions , One Touch Ultra Blue Testi Strips 1 bottle of 100 Use 1 strip to test BS TID, # 100 EA, 11 Refill(s), Pharmacy: [facility], 180.3, cm, 02/14/21 8:43:00 EST, Height, 73.3, kg, 02/14/21 8:43:00 EST, Dosing Weight Start: 04-04-2021 See Instructions , 1 bottle of 100- PATIENT TESTS 2-3 TIMES PER DAY, # 1 EA, 0 Refill(s), Pharmacy: [facility], 176.5, cm, 12/23/21 10:15:00 EST, Height, 68.2, kg, 12/23/21 10:15:00 EST, Dosing Weight Start: 04-09-2022 See Instructions , qs 1 month supply-PATIENT TESTS 2-3 TIMES PER DAY, # 1 EA, 0 Refill(s), Pharmacy: [facility], 176.5, cm, 12/23/21 10:15:00 EST, Height, 68.2, kg, 12/23/21 10:15:00 EST, Dosing Weight Start: 04-09-2022 USE 3 TIMES DAILY [id number] Start: 05-31-[id number] Newsome [id number] Start: 06-25-2016 Device Angio-Sea l Vip 6fr .035in Collagen 70cm Closure Valuelink Guidewire - [id number] Start: 10-23-2024 Valve Benjamin 3 U ltra Resilia Commander Rojas 23mm Aortic Transcatheter - [id number] Start: 10-23-2024 Goals Date Patient Goal Desired Activity /State Personal health goal Personal health goal Personal health goal Functional Status Date Assessment Result Facility 09-04-2024 Functional status Ambulates [facility] Work Phone: 08-03-[address] [facility] Work Phone: 07-14-2024 Functional status Ambulates;[facility] Work Phone: 07-06-[address] [facility] Work Phone: 06-28-2024 Functional status Ambulates;Bath room Privilege [facility] Work Phone: 10-30-2023 Functional Status [facility] 10-30-[facility]23 Functional Status Standard Safet y ID band on, Call device within reach, Bed in low position, Wheels locked, Upper/Half-Length side-rails up, personal items within reach, Bedside Cart Locked, Visitor at bedside [facility] 05-20-[address] [facility] Work Phone: 04-27-[address] [facility] Work Phone: 03-19-2023 Functional Status Room check performed [facility] 03-19-2023 Functional Status 100 [facility] 03-19-2023 Functional Status [facility] 03-19-2023 Functional Status 3am-7am [facility] 03-19-2023 Functional Status [facility] 03-19-2023 [facility] 03-18-2023 Functional Status [facility] 03-18-2023 Functional Status Dinner Percent 75 [facility] 03-18-2023 Functional Status Activity Yu tance One assist [facility] 03-18-2023 Functional Status [facility] 03-18-2023 Functional Status Morning Snack Percent 1 00 [facility] 03-18-2023 Functional [facility]-18-[facility]23 [facility] 03-18-2023 Functional Status [facility] 03-18-2023 Functional Status [facility] 03-18-2023 Functional Status [facility] 03-17-2023 Functional Status bilateral knee high removed/off [facility] 03-17-2023 Functional Status 100 [facility] 03-17-2023 Functional Status Done [facility] 03-17-2023 Functional Status [facility] 03-16-2023 Functional Status [facility] 03-16-2023 Functional Status [facility] 03-16-2023 Functional Status [facility] 03-16-2023 Functional Status Mobile home [facility] 03-15-2023 Functional Status [facility] 10-05-2022 Functional Status ID band on, Call device within reach, Bed in low position, Wheels locked, Upper/Half-Length side-rails up [facility] 05-13-2022 Functional Status Independent [facility] 03-24-[address] [facility] Work Phone: 02-04-[address] [facility] Work Phone: 11-14-2021 Functional status Up ad haleigh [facility] Work Phone: 11-08-[address] [facility] Work Phone: 11-08-[address] [facility] Work Phone: 06-01-2021 Functional status Up ad haleigh [facility] Work Phone: 05-05-[address] [facility] Work Phone: 03-28-2016 Are you deaf, or do you have serious difficulty hearing No 03/28/2016 4:20 PM Ynes WillisRn)(Hist), RN No [facility] 03-28-2016 Are you blind, or do you have serious difficulty seeing, even when wearing glasses No 03/28/2016 4:20 PM Ynes Willis)(Hist), RN No [facility] 03-28-2016 Do you have serious difficulty walking or climbing stairs No 03/28/2016 4:20 PM Ynes Willis (Rn)(Hist), RN No [facility] 03-28-2016 Do you have difficul ty dressing or bathing No 03/28/2016 4:20 PM Ynes WillisRn)(Hist), RN No [facility] 03-28-2016 Because of a physica l, mental, or emotional condition, do you have difficulty doing errands alone such as visiting a physician's office or shopping No 03/28/2016 4:20 PM Ynes Willis (Rn)(Hist), RN No [facility] Mental Status Date Assessment Result Facility 10-06-2024 Cognitive function Awake;Alert;A ppropriate;Fo llows Commands [facility] Work Phone: 09-04-2024 Cognitive function Voice/Name [facility] Work Phone: 08-03-2024 Cognitive function Voice/Name [facility] Work Phone: 07-14-2024 Cognitive function Voice/Name [facility] Work Phone: 07-06-2024 Cognitive function Voice/Name [facility] Work Phone: 06-28-2024 Cognitive function Voice/Name [facility] Work Phone: 10-30-2023 Mental Status Orientation Oriented x 4 [facility] 10-30-2023 Mental Status [facility] 05-20-2023 Cognitive function Voice/Name [facility] Work Phone: 04-27-2023 Cognitive function Voice/Name [facility] Work Phone: 03-19-2023 Mental Status Oriented x 4 [facility] 03-19-2023 Mental Status [facility] 03-18-2023 Mental Status [facility] 03-18-2023 Mental Status [facility] 10-05-2022 Mental Status Orientation Oriented x 4 [facility] 07-20-2022 Cognitive function Level Of Cons ciousness Awake;Alert;Follows Commands [facility] Work Phone: 05-13-2022 Mental Status Orientation Oriented x 4 [facility] 05-13-2022 Mental Status [facility] 03-24-2022 Cognitive function Appropriate [facility] Work Phone: 02-04-2022 Cognitive function Voice/Name [facility] Work Phone: 02-01-2022 Cognitive function Level Of Cons ciousness Awake;Alert;Appropriate;Fo llows Commands [facility] Work Phone: 11-13-2021 Cognitive function Voice/Name [facility] Work Phone: 11-08-2021 Cognitive function Voice/Name [facility] Work Phone: 09-30-2021 Cognitive function Level Of Cons ciousness Awake;Alert;Appropriate;Fo llows Commands [facility] Work Phone: 06-01-2021 Cognitive function Voice/Name [facility] Work Phone: 05-04-2021 Cognitive function Voice/Name [facility] Work Phone: 05-04-2021 Cognitive function Level Of Cons ciousness Awake;Alert;Appropriate [facility] Work Phone: 03-28-2016 Because of a physica l, mental, or emotional condition, do you have serious difficulty concentrating, remembering, or making decisions No 03/28/2016 4:20 PM Ynes Willis (Rn)(Hist), RN No [facility] Clinical Notes 05-02-2021 to 10-26-2024 Talia Serrano APRN.PHYSICAL THERAPIST TECHNICIAN - 10/23/2024 1:00 PM Talia Mcclelland APRN.PHYSICAL THERAPIST TECHNICIAN - 10/20/2024 3:41 PM EDT Note Date & Type Note Facility 10-26-2024 Note [facility] 10-26-2024 Note [facility] 10-26-2024 [facility] 10-25-2024 Note [facility] 10-25-2024 Note [facility] 10-25-2024 Note [facility] 10-25-2024 Note [facility] 10-24-2024 Note [facility] 10-24-2024 Note [facility] 10-24-2024 Note [facility] 10-23-2024 Note [facility] 10-23-2024 Note [facility] 10-23-2024 History of Present illness Narrative [facility] [place] [facility] Department of Cardiovascular Medicine SECTION OF INTERVENTIONAL CARDIOLOGY Date October 23, 2024 MULTI DISCIPLINARY TAVR TEAM MEETING [employer] Teams Meeting Team members: Dr. Penn, Dr. Garcia, Dr. Alexander, Dr. Dorman, Dr. Talamantes, Dr. Schwartz, Dr. Hernandez, Dr. Golden, Dr. Blair, Dr. Alonso, Joni RODRIGUEZ, Join Serrano CNP, Roshan Melgar and Can Alvarado. [...] Talia Serrano APRN.STEPHANIE documented in this encounter [facility] 10-23-2024 Note [facility] 10-22-2024 Note [facility] 10-21-2024 Note [facility] 10-21-2024 Note HNO ID: [id number] Author: NOTE, INTERFACE, ? Service: ? Author Type: ? Type: Progress Notes Filed: 10/23/2024 09:18 Note Text: Epic Scheduled Downtime: 10/21/2024 1:00:00 AM to 10/21/2024 2:06:36 AM [facility] 10-20-2024 Note [facility] 10-20-2024 History of Present illness Narrative [...] completed 15 Ft W: completed Talia Serrano APRN.[facility], Please schedule Analilia Melendrez, [phone] for COMMERCIAL TF- TAVR V-I-V S3 Procedure on: 10/23/2024 Patient is inpatient and will remain until the procedure is completed Please place Structural lab schedule on : 10/23/2024 at 10AM CPT Code: 50460 DX code: T82.01XA PATTERN SETTER: Dr. Penn Performing Physician: Dr. Penn OR: 81 Surgeon: Dr. Barragan Please schedule bed reservation for post procedure-(should be a TCI) ALBERT schedule- intra/op Patient also needs INSURANCE PRECERTIFICATION ADL SCORE 6__ SURVIVAL RATE GREATER THAN 1 YEAR____Y___(LOOKING FOR A YES) EF ___25__(GREATER THAN 50%) Thank you. Request sent to scheduling. Talia Serrano APRN.PHYSICAL THERAPIST TECHNICIAN documented in this encounter [facility] 10-20-2024 Note [facility] 10-20-2024 Note [facility] 10-20-2024 Note [facility] 10-19-2024 Note [facility] 10-19-2024 Note [facility] 10-18-2024 Note [facility] 10-18-2024 Note [facility] 10-18-2024 Note [facility] 10-18-2024 Note [facility] 10-12-2024 Discharge summary Note Date/Time October 12, 2024 3:33pm [facility] Medical Records Department [address] [place] [id number] Emergency Department Summary 10/12/24 MR#: [id number] Acct: [id number] Name: ANALILIA MELENDREZ Rep #:[id number] : 1960 64 From: Perez Ribeiro DO [...] travels denies any history of blood clots. [facility] Medical History Chronic pancreatitis Chronic pancreatitis due [...] #60 tabs 08/03/24 Unknown Rx tablet (Entresto) [id number] 1 cap PO BIDCM 08/29/24 Unkn own [...] Neurological: Patient commands that he was at [facility] 2024 Skin: Warm, dry, intact [...] % (Auto) 65.8 Lymph % (Auto) 20.8 [place] % (Auto) 9.5 Eos % (Auto) 1.5 [...] 4Hr 83 H* [place] [id number] H Radiography Diagnostic Testing: Clinical Impression(s) from Imaging Studies Chest X-Ray 10/12/24 10:15 IMPRESSION: Bilateral pleural effusions right greater than left as described with bibasilar compressive atelectasis. [id number]/Pelvis CT 10/12/24 13:10 IMPRESSION: Bilateral pleural effusions right greater than left with dependent bibasilar atelectasis. Diffuse pancreatic calcification in keeping with chronic pancreatitis. Pancreatic atrophy. Fatty infiltration of the liver. Stable aneurysmal dilatation of the ascending thoracic aorta. Small umbilical hernia containing fat. Reading [id number] Discharge Plan Triage Chief Complaint: Shortness of [...] DO [Primary Care Provider] - Print Language: Tanzanian Disposition Disposition: Acute Care Hospital [facility] What to do if you have Problems For any increased pain, shortness of breath, bleeding, nausea or vomiting, chestpain, or any unexpected problems, contact your Primary Care Provider. Call [facility] ([phone]) or report to the closest Emergency Room. Call 911 if necessary. 10/12/24 1533 <Electronically signed by Perez Ribeiro DO> Cosigner Signature (if applicable): CC: Sigrid Call DO ~ Signed [facility] Work Phone: [phone]) 883-850309-04-2025 Radiology Diagnostic study [facility]09-04-2025 Radiology Diagnostic study [facility]08-29-2025 Radiology Diagnostic study [facility] 08-28-2024 Radiology Diagnostic study [facility]07-21-2025 Discharge summary Author Vinh Lomeli [facility] Note Date/Time August 28, 2024 11:4 4pm [facility] Medical Records Department [address] [place] [address] Emergency Department Summary 08/28/24 MR#: [id number] Acct: [id number] Name: ANALILIA MELENDREZ Rep #:[id number] : 1960 64 From: Vinh Lomeli MD PCP: Sigrdi Call DO Status:REG ER Location: ED HPI [...] history of anemia, ascites, alcohol abuse, pancreatitis, CT, diabetes and aortic valve replaced by bovine [...] reflux #60 tabs 06/27/23 07/31/24 Rx release knxafn-yubucdax-qbzazfj 1 cap PO TIDCM #90 caps 06/0907/31/24 [...] % (Auto) 68.3 Lymph % (Auto) 21.3 [place] % (Auto) 7.6 Eos % (Auto) 1.4 [...] Clarity Clear Urine pH 7.0 Ur Specific [place] 1.010 Urine Protein Negative Urine Glucose (UA) [...] (Auto) Neut % (Auto) Lymph % (Auto) [place] % (Auto) Eos % (Auto) Baso % (Auto) Absolute Neuts (auto) Absolute Lymphs (auto) Nucleated RBC % D-Dimer Quant (PE/DVT) Sodium Potassium Chloride Carbon Dioxide Anion Gap BUN Creatinine Estim Creat Clear Calc Est GFR (MDRD) Non-Af BUN/Creatinine Ratio Glucose Calcium Troponin T High Sens Troponin T Hi Sens 2 Hr 57 H* Urine Color Urine Clarity Urine pH Ur Specific [place] Urine Protein Urine Glucose (UA) Urine Ketones [...] pneumonia. 2. Bilateral pleural effusions. Reading Location: [facility] Chest x-ray, 2 views, AP and lateral, noted by myself and radiologist. Prior sternotomy. Left-sided pacemaker. Bilateral moderate-sized pleural effusions. Rhythm Strip Rhythm Strip: Paced Rate: 108 Ectopy: None EKG Initial EKG: Attestation: I personally reviewed and interpreted this EKG as follows: Interpretation: Paced Comments: Paced rhythm 108 no acute signs of CT or ischemia. Discharge Plan Triage Chief Complaint: [...] Call, [Primary Care Provider] - Print Language: Tanzanian What to do if you have Problems For any increased pain, shortness of breath, bleeding, nausea or vomiting, chestpain, or any unexpected problems, contact your Primary Care Provider. Call [facility] ([phone]) or report to the closest Emergency Room. Call 911 if necessary. 08/28/24 2344 <Electronically signed by Vinh Lomeli MD> Cosigner Signature (if applicable): CC: Sigrid Call DO ~ Signed [facility] Work Phone: 1(426) 352-393007-07-2025 Telephone encounter Note* Telephone Encounter - Suzi Haynes MA - 08/14/2024 11:56 AM EDT Patient transferred out of [facility]. Suzi Haynes MA [facility]07-07-[facility]25 Miscellaneous Notes* Telephone Encounter - Suzi Haynes MA - 08/14/2024 11:56 AM EDT Patient transferred out of [facility]. Suzi Haynes MA [facility] Telephone encounter Note * Telephone Encounter - Suzi Haynes MA - 08/04/2024 8:12 AM EDT [facility] Miscellaneous Notes* Telephone Encounter - Suzi Haynes MA - 08/04/2024 8:12 AM EDT [facility]25 Discharge summary Author Valeriy [facility] Note Date/Time August 03, 2024 12:1 6pm [facility] Medical Records Department [address] [place] [address] Discharge Summary 08/03/24 1206 MR#: [id number] Acct: [id number] Name: ANALILIA MELENDREZ Rep #:[id number] : 1960 64 From: Valeriy Connell DO PCP: Sigrid Call DO Status:ADM IN Location: [facility] [id number] Providers Date of Admission: 08/01/24 Primary [...] mg PO BID reflux #60 tabs 06/27/23 unpiko-upfprfmp-oganlsh 24,000-76,000-120,000 unit capsule,delayed rel (Creon) 1cap PO [...] Do recommend that he do follow-up with [facility]. Do recommend that he follow-up with [...] % (Auto) 64.5, Lymph % (Auto) 21.3, [place] % (Auto) 10.6 H, Eos % (Auto) [...] Valeriy Connell Primary Care Provider: Sigrid Call [facility] Consulting Providers: Iman Aguayo; Valeriy Ross Instructions [...] Qty: 60 2RF Referrals / Follow Up: [facility] [Provider Group] - Within 1 Month [facility] [Provider Group] - Within 1 Month Sigrid Call DO [Primary Care Provider] - Within 2 Weeks Disposition Disposition (needs filled in before D/C Order can be placed): Home, Self Care Charges/Coding Visit Charges Inpatient E&M: 47288 Disch Hosp >30min 08/03/24 1216 <Electronically signed by Valeriy Connell DO> Cosigner Signature (if applicable): CC: Dr. Valeriy Connell DO; Sigrid Call DO~ Signed [facility] Work Phone: 1(424) 259-690706-26-2025 Progress note Author Valeriy oCnnell [facility] Note Date/Time August 03, 2024 12:0 6pm [facility] Medical Records Department [address] [place] [address] Progress Note - Hospitalist 08/03/24 0742 MR#: [id number] Acct: [id number] Name: ANALILIA MELENDREZ Rep #:[id number] : 1960 64 From: Valeriy Connell DO PCP: Sigrid Call DO Status:ADM IN Location: [place] [address]- 1 Reason for Visit Reason for Visit: [...] % (Auto) 64.5, Lymph % (Auto) 21.3, [place] % (Auto) 10.6 H, Eos % (Auto) [...] Cosigner Signature (if applicable): CC: ~ Signed [facility] Work Phone: 1(854) 294-191506-26-2025 Progress note Author Iman Aguayo [facility] Note Date/Time August 03, 2024 6:40 am [facility] Medical Records Department [address] [place] [address] Progress Note - Hospitalist 08/03/24 0639 MR#: [id number] Acct: [id number] Name: ANALILIA MELENDREZ Rep #:[id number] : 1960 64 From: Iman Aguayo MD PCP: Sigrid Call DO Status:ADM IN Location: [place] [address] Hospitalist Note PCP contacted hospital to discuss patient as they are having difficulties setting up follow-up with specialists as he is constantly being admitted and hasnot had follow-up for some time. She is requesting if able to add referral at discharge for gastroenterology and cardiology if possible. 08/03/24 0640 <Electronically signed by Iman Aguayo MD> Cosigner Signature (if applicable): CC: ~ Signed [facility] Work Phone: 1(147) 351-435806-25-2025 Consult note Author Suyapa Bustos [facility] Note Date/Time August 02, 2024 6:19 pm [facility] Medical Records Department [address] [place] [address] Consultation - Surgical 08/02/24 1712 MR#: [id number] Acct: [id number] Name: ANALILIA MELENDREZ Rep #:[id number] : 1960 64 From: Suyapa BALDERAS PCP: Sigrid Call DO Status:ADM IN Location: [place] [id number]- [id number] Assessment & Plan Assessment/Plan (1) H/O [...] is a 64 M who presented to [facility] ER on 08/01/24 increased edema and [...] aortic valve replacement around 2017 at [facility]. He denies any chest pain today. He reports his SOB is much better, he is overall feeling much better than yesterday. [facility] Medical History Malnutrition Pancytopenia Medically noncompliant Thrombocytopenia [...] reflux #60 tabs 06/27/23 07/31/24 Rx release jetteo-yturcyop-asblzyx 1 cap PO TIDCM #90 caps 06/0907/31/24 [...] (Auto) 64.6, Lymph % (Auto) 18.5 L, [place] % (Auto) 12.9 H, Eos % (Auto) [...] aorta measures 4.0 cm in diameter. 3. Cahpvxsi-yj-gznzp pleural effusions bilaterally, slightly increased comparedto CT on 07/11/2024. Bibasilar consolidation may represent compressive atelectasis, though infection could appear similar. ABDOMEN AND PELVIS: 1. Mucosal hyperenhancement with mild wall thickening involving the stomach through jejunum, as may be seen with gastroenteritis, which could be of infectious, inflammatory, or ischemic etiology. 2. Hepatic steatosis. Reading Location: [id number]-[id number]-I Chest CTA 08/01/24 16:40 IMPRESSION: CHEST: 1. No evidence of pulmonary embolism. 2. Tiny linear hypodensity at the aortic arch, possibly artifactual related to motion or blood flow, though dissection could appear similar. Consider Vascular Surgery consultation. Repeat imaging could be performed with ECG gating. Of note, the ascending thoracic aorta measures 4.0 cm in diameter. 3. Wpdyamsx-qa-jwufk pleural effusions bilaterally, slightly increased comparedto CT on 07/11/2024. Bibasilar consolidation may represent compressive atelectasis, though infection could appear similar. ABDOMEN AND PELVIS: 1. Mucosal hyperenhancement with mild wall thickening involving the stomach through jejunum, as may be seen with gastroenteritis, which could be of infectious, inflammatory, or ischemic etiology. 2. Hepatic steatosis. Reading Location: [id number]-S Charges/Coding Visit Charges Inpatient E&M: 73948 Init Hosp L1 08/02/24 172 <Electronically signed by Suyapa BALDERAS> Cosigner Signature (if applicable): 08/02/24 1819 <Electronically signed by Valeriy Ross MD> CC: Sigrid Call DO~ Signed [facility] Work Phone: 1(289) 879-468306-25-2025 Progress note Author Valeriy Connell [facility] Note Date/Time August 02, 2024 3:00 pm [facility] Medical Records Department [address] [place] [address] Progress Note - Hospitalist 08/02/24 0744 MR#: [id number] Acct: [id number] Name: ANALILIA MELENDREZ Rep #:[id number] : 1960 64 From: Valeriy Connell DO PCP: Sigrid Call DO Status:ADM IN Location: [place] [id number]- [id number] Reason for Visit Reason for Visit: [...] 73.3 H, Lymph % (Auto) 16.1 L, [place] % (Auto) 8.0, Eos % (Auto) 0.9, [...] 20, Alkaline Phosphatase 121,[place] [address] H, Total Protein 6.3, Albumin 3.0 L, [...] (Auto) 64.6, Lymph % (Auto) 18.5 L, [place] % (Auto) 12.9 H, Eos % (Auto) [...] within the left lower lobe. Reading Location: [facility] Abdomen/Pelvis CT 08/01/24 16:40 IMPRESSION: CHEST: 1. No evidence of pulmonary embolism. 2. Tiny linear hypodensity at the aortic arch, possibly artifactual related to motion or blood flow, though dissection could appear similar. Consider Vascular Surgery consultation. Repeat imaging could be performed with ECG gating. Of note, the ascending thoracic aorta measures 4.0 cm in diameter. 3. Odcymtmk-cp-ltxhw pleural effusions bilaterally, slightly increased comparedto CT on 07/11/2024. Bibasilar consolidation may represent compressive atelectasis, though infection could appear similar. ABDOMEN AND PELVIS: 1. Mucosal hyperenhancement with mild wall thickening involving the stomach through jejunum, as may be seen with gastroenteritis, which could be of infectious, inflammatory, or ischemic etiology. 2. Hepatic steatosis. Reading Location: [id number]-[id number]-U Chest CTA 08/01/24 16:40 IMPRESSION: CHEST: 1. No evidence of pulmonary embolism. 2. Tiny linear hypodensity at the aortic arch, possibly artifactual related to motion or blood flow, though dissection could appear similar. Consider Vascular Surgery consultation. Repeat imaging could be performed with ECG gating. Of note, the ascending thoracic aorta measures 4.0 cm in diameter. 3. Zffoskjs-cv-jwqqj pleural effusions bilaterally, slightly increased comparedto CT on 07/11/2024. Bibasilar consolidation may represent compressive atelectasis, though infection could appear similar. ABDOMEN AND PELVIS: 1. Mucosal hyperenhancement with mild wall thickening involving the stomach through jejunum, as may be seen with gastroenteritis, which could be of infectious, inflammatory, or ischemic etiology. 2. Hepatic steatosis. Reading Location: [id number] Rhythm Strip Rhythm Strip: Sinus Rhythm Rate: [...] CAT scan. Charges/Coding Visit Charges Inpatient E&M: 37671 Subs Hosp L3 08/02/24 1500 <Electronically signed by Valeriy Connell DO> Cosigner Signature (if applicable): CC: ~ Signed [facility] Work Phone: 1(158) 839-692906-25-2025 History and physical note Author Iman Aguayo [facility] Note Date/Time August 02, 2024 2:41 am [facility] Medical Records Department [address] [place] [address] H&P Exam - Hospitalist 08/01/242043 MR#: [id number] Acct: [id number] Name: ANALILIA MELENDREZ Rep #:[id number] : 1960 64 From: Iman Aguayo MD PCP: Sigrid Call DO Status:ADM IN Location: [facility] [id number] HPI - General General Date of [...] GERD, Tobacco use who presents to the [facility] ED on 08/02/2024with history of [...] physician did discuss case at length with [facility] who reviewed imaging and noted that [...] labetalol 10 mg IV x 1. [facility] Medical History Malnutrition Pancytopenia Medically noncompliant Thrombocytopenia [...] reflux #60 tabs 06/27/23 07/31/24 Rx release qhplvd-zwzvhjjr-uyrrddy 1 cap PO TIDCM #90 caps 06/0907/31/24 [...] 73.3 H, Lymph % (Auto) 16.1 L, [place] % (Auto) 8.0, Eos % (Auto) 0.9, [...] Alkaline Phosphatase 121, [place] [address] H, Total Protein 6.3, Albumin 3.0 L, Globulin 3.3, Albumin/Globulin Ratio 0.9, Lipase 9 L Imaging Radiology Impression Chest X-Ray 08/01/24 15:30 IMPRESSION: Mild bibasilar pleural effusions. Bilateral lower lobe opacities not excluded with residual opacity within the left lower lobe. Reading Location: PAA-[id number]-ZD Abdomen/Pelvis CT 08/01/24 16:40 IMPRESSION: CHEST: 1. No evidence of pulmonary embolism. 2. Tiny linear hypodensity at the aortic arch, possibly artifactual related to motion or blood flow, though dissection could appear similar. Consider Vascular Surgery consultation. Repeat imaging could be performed with ECG gating. Of note, the ascending thoracic aorta measures 4.0 cm in diameter. 3. Sdzgyeym-fd-rsexu pleural effusions bilaterally, slightly increased comparedto CT on 07/11/2024. Bibasilar consolidation may represent compressive atelectasis, though infection could appear similar. ABDOMEN AND PELVIS: 1. Mucosal hyperenhancement with mild wall thickening involving the stomach through jejunum, as may be seen with gastroenteritis, which could be of infectious, inflammatory, or ischemic etiology. 2. Hepatic steatosis. Reading Location: [id number]-C Chest CTA 08/01/24 16:40 IMPRESSION: CHEST: 1. No evidence of pulmonary embolism. 2. Tiny linear hypodensity at the aortic arch, possibly artifactual related to motion or blood flow, though dissection could appear similar. Consider Vascular Surgery consultation. Repeat imaging could be performed with ECG gating. Of note, the ascending thoracic aorta measures 4.0 cm in diameter. 3. Qehiwoyd-al-sixsf pleural effusions bilaterally, slightly increased comparedto CT on 07/11/2024. Bibasilar consolidation may represent compressive atelectasis, though infection could appear similar. ABDOMEN AND PELVIS: 1. Mucosal hyperenhancement with mild wall thickening involving the stomach through jejunum, as may be seen with gastroenteritis, which could be of infectious, inflammatory, or ischemic etiology. 2. Hepatic steatosis. Reading Location: ANP-ZGOOLNRSU-P Assessment & Plan Assessment/Plan (1) Acute HFrEF [...] GERD, Tobacco use who presents to the [facility] ED on 08/02/2024with history of [...] upwith CT surgery/vascular surgery as previously arranged, [facility] reviewed images as noted and findings [...] prophylaxis: Lovenox. Charges/Coding Visit Charges Inpatient E&M: 71901 Init Hosp L3 06/25/25 0241 <Electronically signed by Iman Aguayo MD> Cosigner Signature (if applicable): CC: Dr. Iman Aguayo MD; Sirgid Call DO~ Signed [facility] Work Phone: 1(969) 610-867806-25-2025 Discharge summary Author Tierney Macdonald [facility] Note Date/Time August 01, 2024 11:0 6pm [facility] Medical Records Department [address] [place] [address] Emergency Department Summary 08/01/24 MR#: [id number] Acct: [id number] Name: ANALILIA MELENDREZ Rep #:[id number] : 1960 64 From: Tierney Rosado PCP: Sigrid Call DO Status:ADM IN Location: [place] [address] HPI History of Present Illness Chief Complaint: [...] to be associated with chronic alcohol use. [facility] Medical History Malnutrition Pancytopenia Medically noncompliant Thrombocytopenia [...] reflux #60 tabs 06/27/23 07/31/24 Rx release axvaby-vnnbavrz-wfyttvs 1 cap PO TIDCM #90 caps 06/0907/31/24 [...] cell count. He has anemia with hemoglobin Edwards 0.0 but this is actually significantly improved [...] with cardiothoracic surgery and cardiac fellow at [facility], Dr. Callahan and , who do [...] 73.3 H Lymph % (Auto) 16.1 L [place] % (Auto) 8.0 Eos % (Auto) 0.9 [...] Alkaline Phosphatase 121 [place] [address] H Total Protein 6.3 Albumin 3.0 L Globulin 3.3 Albumin/Globulin Ratio 0.9 Lipase 9 L Radiography Diagnostic Testing: Clinical Impression(s) from Imaging Studies Chest X-Ray 08/01/24 15:30 IMPRESSION: Mild bibasilar pleural effusions. Bilateral lower lobe opacities not excluded with residual opacity within the left lower lobe. Reading Location: [facility] Abdomen/Pelvis CT 08/01/24 16:40 IMPRESSION: CHEST: 1. No evidence of pulmonary embolism. 2. Tiny linear hypodensity at the aortic arch, possibly artifactual related to motion or blood flow, though dissection could appear similar. Consider Vascular Surgery consultation. Repeat imaging could be performed with ECG gating. Of note, the ascending thoracic aorta measures 4.0 cm in diameter. 3. Dimzcxkg-zm-uwqyk pleural effusions bilaterally, slightly increased comparedto CT on 07/11/2024. Bibasilar consolidation may represent compressive atelectasis, though infection could appear similar. ABDOMEN AND PELVIS: 1. Mucosal hyperenhancement with mild wall thickening involving the stomach through jejunum, as may be seen with gastroenteritis, which could be of infectious, inflammatory, or ischemic etiology. 2. Hepatic steatosis. Reading Location: [facility] Chest CTA 08/01/24 16:40 IMPRESSION: CHEST: 1. No evidence of pulmonary embolism. 2. Tiny linear hypodensity at the aortic arch, possibly artifactual related to motion or blood flow, though dissection could appear similar. Consider Vascular Surgery consultation. Repeat imaging could be performed with ECG gating. Of note, the ascending thoracic aorta measures 4.0 cm in diameter. 3. Ljnypstg-mc-mlkvj pleural effusions bilaterally, slightly increased comparedto CT on 07/11/2024. Bibasilar consolidation may represent compressive atelectasis, though infection could appear similar. ABDOMEN AND PELVIS: 1. Mucosal hyperenhancement with mild wall thickening involving the stomach through jejunum, as may be seen with gastroenteritis, which could be of infectious, inflammatory, or ischemic etiology. 2. Hepatic steatosis. Reading Location: [facility] Rhythm Strip Rhythm Strip: Sinus Rhythm Rate: 90 Ectopy: PAC(s) EKG Initial EKG: Attestation: I personally reviewed and interpreted this EKG as follows: Interpretation: Sinus Rhythm Comments: Normal sinus rhythm at a rate of 90 bpm with PACs Right bundle izzy block Normal ST segments Normal QRS Mildly prolonged QTc of 521 Compared to prior EKG on 06/25/2024, no significant foreign exchange student coordinator Discussion w/another healthcare provider: Hospitalist and Manager Credit (Cardiothoracic surgery at [facility]) Discharge Plan Dx/Rx/DC Orders Clinical Impression: Acute HFrEF (heart failure with reduced ejection fraction), HTN (hypertension),H/O aortic valve replacement, Pleural effusion Disposition Disposition: Acute Care Hospital [facility] Discharge Date/Time: 08/01/24 21:53 What to do if you have Problems For any increased pain, shortness of breath, bleeding, nausea or vomiting, chestpain, or any unexpected problems, contact your Primary Care Provider. Call [facility] ([phone]) or report to the closest Emergency Room. Call 911 if necessary. 08/01/24 4860 <Electronically signed by Tierney Macdonald DO> Cosigner Signature (if applicable): CC: Sigrid Call DO ~ Signed [facility] Work Phone: 1(955) 511-198406-24-2025 Radiology Diagnostic study [facility]-24-2025 Radiology Diagnostic study [facility]-24-2025 Radiology Diagnostic study [facility] 07-17-2024 NoteHNO ID: [id number] Author: RADHA ETIENNE RN Service: ? Author Type: Registered Nurse Type: Progress Notes Filed: 07/17/2024 14:28 Note Text: TRANSITIONAL CARE MANAGEMENT (TCM) COMMUNITY MONITORING PROGRAM - BOYD SUMMARY: Pt discharged from [facility] on 07/11/24. Patient seen Inpatient TONY Visit? N/A. Patient seen ICARE Program? N/A. Contact made with patient: Yes Hi my name is Radha Etienne RN and I am calling from the [facility] on behalf of your PCP, [...] a new PCP and hung up. Outreach [facility]06-09-2025 History of Present illness Narrative* Radha Eitenne RN - 07/17/2024 2:13 PM EDT TRANSITIONAL CARE MANAGEMENT (TCM) COMMUNITY MONITORING PROGRAM - BOYD SUMMARY: Pt discharged from [facility] on 07/11/24. Patient seen Inpatient TONY Visit? N/A. Patient seen ICARE Program? N/A. Contact made with patient: Yes Hi my name is Radha Etienne RN and I am calling from the [facility] on behalf of your PCP, [...] hung up. Outreach Ended documented in this [facility]Reg[facility] Center06-[facility]-2025 NotePatient Outreach (AGACM) AANLILIA MELENDREZ ([id number]) 1960 M Date Time Provider Department 07/17/24 RADHA ETIENNE [facility] During your visit today, we recorded the following information about you: Radha Etienne RN 07/17/2024 2:28 PM Signed TRANSITIONAL CARE MANAGEMENT (TCM) COMMUNITY MONITORING PROGRAM - BOYD SUMMARY: Pt discharged from [facility] on 07/11/24. Patient seen Inpatient TONY Visit? N/A. Patient seen ICARE Program? N/A. Contact made with patient: Yes Hi my name is Radha Etienne RN and I am calling from the [facility] on behalf of your PCP, Marianna Wagner APRN.PHYSICAL THERAPIST TECHNICIAN I understand you were recently in the [...] fourteen (14) days to upper arm. - vdsxrj-arkrbnor-hraxmih (CREON 36) 36,000-114,000- 180,000 unit delayed release capsule Take 2 pills by mouth with first bite of meal and take 1 pill with snacks. Max 10 per day. - Cholecalciferol, Vitamin D3, (VITAMIN D-3) 50 mcg (2,000 unit) cap Take 1 capsule by mouth once daily. 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*08/09/2023 Cognitive communication deficit [R41.841] 05/21/2023 Depression [F32.A] 08/09/2023 Elevated liver enzymes [R74.8] 08/09/2023 GERD (gastroesophageal reflux disease) [K21.9] 08/09/2023 Hiatal hernia [K44.9] 08/09/2023 History of aortic valve replacement [Z95.2] 08/09/2023 Hepatic steatosis [K76.0] 08/09/2023 (more content not included)...[facility]06-06-2025 Discharge summary Author Conrado Morel [facility] Note Date/Time July 14, 2024 8:42a [facility] Medical Records Department [address] [place] [address] Discharge Summary 07/14/24 0839 MR#: [id number] Acct: [id number] Name: ANALILIA MELENDREZ Rep #:[id number] : 1960 63 From: Conrado Morel MD PCP: Sigrid Call DO Status:ADM IN Location: [place] [address] Providers Date of Admission: 07/11/24 Date of [...] - Requested for PT OT eval and public health social worker to assist with discharge planning [...] mg PO BID reflux #60 tabs 06/27/23 yddjpd-pqkkdysw-nufytsc 24,000-76,000-120,000 unit capsule,delayed rel (Creon) 1cap PO [...] Conrado Morel Primary Care Provider: Sigrid Call [facility] Consulting Providers: Piper Fontanez; Melonie De La [...] Self Care Charges/Coding Visit Charges Inpatient E&M: 85167 Disch Hosp >30min 07/14/24 0842 <Electronically signed by Conrado Morel MD> Cosigner Signature (if applicable): CC: Dr. Conrado Morel MD; Sigrid Call DO~ Signed [facility] Work Phone: 1(646) 326-347906-05-2025 Progress note Author Conrado Morel [facility] Note Date/Time July 13, 2024 10:28 am [facility] Medical Records Department [address] [place] [address] Progress Note - Hospitalist 07/13/24 1023 MR#: [id number] Acct: [id number] Name: ANALILIA MELENDREZ Rep #:[id number] : 1960 63 From: Conrado Morel MD PCP: Marianna Wagner, ORDER FULFILLMENT SPECIALIST-C Status:ADM I N Location: MS3 [id number] Reason for Visit Reason for Visit: Diagnoses [...] 74.2 H, Lymph % (Auto) 16.6 L, [place] % (Auto) 6.6, Eos % (Auto) 1.4, [...] or mass effect is seen. Reading Location: [address] Small Bowel X-Ray 07/12/24 14:30 IMPRESSION: No evidence of ileus or obstruction. Reading Location: [id number] Physical Exam Narrative GENERAL: cooperative HEENT: Atraumatic; [...] - Requested for PT OT eval and public health social worker to assist with discharge planning [...] documentation, 38Minutes Charges/Coding Visit Charges Inpatient E&M: 00599 Subs Hosp L2 07/13/24 1028 <Electronically signed by Conrado Morel MD> Cosigner Signature (if applicable): CC: ~ Signed [facility] Work Phone: 1(656) 785-432506-05-2025 Progress note Author Dian Mendoza [facility] Note Date/Time July 13, 2024 8:19a m [facility] Medical Records Department [address] [place] [address] Progress Note - Surgery 07/13/24 0808 MR#: [id number] Acct: [id number] Name: ANALILIA MELENDREZ Rep #:[id number] : 1960 63 From: Dian ZUNIGAC PCP: VINOD WildeC Status:ADM I N Location: [place] [address] Subjective Subjective Patient evaluated resting comfortably in [...] 74.2 H, Lymph % (Auto) 16.6 L, Laclede % (Auto) 6.6, Eos % (Auto) 1.4, [...] or mass effect is seen. Reading Location: [id number] Small Bowel X-Ray 07/12/24 14:30 IMPRESSION: No evidence of ileus or obstruction. Reading Location: [id number] Physical Exam GI GI Narrative: Abdomen- soft, [...] Thank you Charges/Coding Visit Charges Inpatient E&M: 61840 Subs Hosp L2 07/13/24 0812 <Electronically signed [...] Cosigner Signature (if applicable): cc: ~* Signed [facility] Work Phone: 1([phone]) 747-734406-04-2025 Radiology Diagnostic study [facility]06-04-2025 Progress note Author Conrado Morel [facility] Note Date/Time July 12, 2024 10:31 am [facility] Medical Records Department [address] [place] [address] Progress Note - Hospitalist 07/12/24 0715 MR#: [id number] Acct: [id number] Name: ANALILIA MELENDREZ Rep #:[id number] : 1960 63 From: Conrado Morel MD PCP: VINOD WildeC Status:ADM I N Location: [place] [address] Reason for Visit Reason for Visit: Diagnoses [...] Clarity Clear, Urine pH 8.0, Ur Specific Swanton 1.010, Urine Protein 15 H, Urine Glucose [...] 74.9 H, Lymph % (Auto) 15.4 L, Laclede % (Auto) 7.7, Eos % (Auto) 0.4, [...] Std Deviation 66.2 H, RDW Coeff of Aklpana 16.1 H, Plt Count 161, MPV 11.4, Immature Gran % (Auto) 0.600, Neut % (Auto) 59.7, Lymph % (Auto) 26.0, Laclede % (Auto) 10.5 H, Eos % (Auto) [...] pleural effusion with compressive atelectasis. Reading Location[facility] Physical Exam Narrative GENERAL: cooperative HEENT: [...] - Requested for PT OT eval and public health social worker to assist with discharge planning [...] aortic valve stenosis Aortic valve area 1.1 [id number] aortic valve gradient 60.2 mmHg. Mean aortic [...] documentation,52 Minutes Charges/Coding Visit Charges Inpatient E&M: 00544 Subs Hosp L3 07/12/24 1031 <Electronically signed by Conrado Morel MD> Cosigner Signature (if applicable): CC: ~ Signed [facility] Work Phone: 1(683) 403-535706-04-2025 Consult note Author Dian Mendoza [facility] Note Date/Time July 12, 2024 10:15 am [facility] Medical Records Department [address] [place] [address] Consultation - Surgical 07/12/24 0927 MR#: [id number] Acct: [id number] Name: ANALILIA MELENDREZ Rep #:[id number] : 1960 63 From: Dian BALDERAS PA-C PCP: ALAN Wilde Status:ADM I N Location: [place] WI167-2 Assessment & Plan Assessment/Plan (1) Abdominal pain: [...] notes his abdominal pain has improved. [facility] Medical History Thrombocytopenia Chronic pancreatitis Macrocytosis associated [...] reflux #60 tabs 06/27/23 Unknown Rx release dffhfy-peaqglxh-shtnxzo 1 cap PO TIDCM #90 caps 06/09 [...] Clarity Clear, Urine pH 8.0, Ur Specific Swanton 1.010, Urine Protein 15 H, Urine Glucose [...] 74.9 H, Lymph % (Auto) 15.4 L, [place] % (Auto) 7.7, Eos % (Auto) 0.4, [...] % (Auto) 59.7, Lymph % (Auto) 26.0, [place] % (Auto) 10.5 H, Eos % (Auto) [...] pleural effusion with compressive atelectasis. Reading [facility] Charges/Coding Visit Charges Inpatient E&M: 21763 Init Hosp L2 07/12/24 1015 <Electronically signed by Dian BALDERAS PA-C> Cosigner Signature (if applicable): CC: ALAN Wagner~ Signed [facility] Work Phone: 1(283) 814-530206-04-2025 [facility] History and physical note Author Melonie De La Rosa [facility] Note Date/Time July 11, 2024 3:21p m [facility] Medical Records Department [address] [place] [address] H&P Exam - Hospitalist 07/11/24 1405 MR#: [id number] Acct: [id number] Name: ANALILIA MELENDREZ Rep #:[id number] : 1960 63 From: Melonie De La Rosa DO PCP: Marianna Wagner ORDER FULFILLMENT SPECIALISTMiahC Status:REG E R Location: ED HPI - General General Date of Admission: 07/11/24 Date of Service: 07/11/24 Chief Complaint: Suicidal ideation/nausea vomiting HPI Narrative ANALILIA MELENDREZ, is a 63 M who presented to the emergency department at [facility] on 07/11/2024 with a chief [...] with Dr. Fontanez prior to admission. [facility] Medical History Thrombocytopenia Chronic pancreatitis Macrocytosis associated [...] reflux #60 tabs 06/27/23 Unknown Rx release vbauxj-apsoidwb-ubadlyd 1 cap PO TIDCM #90 caps /03/04 [...] Clarity Clear, Urine pH 8.0, Ur Specific Sw[place] 1.010, Urine Protein 15 H, Urine Glucose [...] 74.9 H, Lymph % (Auto) 15.4 L, [place] % (Auto) 7.7, Eos % (Auto) 0.4, [...] pleural effusion with compressive atelectasis. Reading Location[facility] Assessment & Plan Assessment/Plan (1) Abdominal [...] need ALBERT and probable referral to a [facility] - Outpatient follow-up here with cardiology after [...] thoracic dissection and was treated at [facility] History of heroin abuse - [...] Full code Charges/Coding Visit Charges Inpatient E&M: 73592 Init Hosp L2 07/11/24 1521 <Electronically signed by Melonie De La Rosa DO> Cosigner Signature (if applicable): CC: ALAN Wagner; Dr. Melonie De La Rosa DO~ Signed [facility] Work Phone: 1([phone]) 940-182306-03-2025 Discharge summary Author Perez Ribeiro [facility] Note Date/Time July 11, 2024 2:09p m [facility] Medical Records Department [address] [place] [address] Emergency Department Summary 07/11/24 MR#: [id number] Acct: [id number] Name: ANALILIA MELENDREZ Rep #:[id number] : 1960 63 From: Perez Ribeiro DO [...] he has also been very nauseous lately. [facility] Medical History Thrombocytopenia Chronic pancreatitis Macrocytosis associated [...] reflux #60 tabs 06/27/23 Unknown Rx release jnubzb-lnumlqkg-heqcwbz 1 cap PO TIDCM #90 caps 06/09 [...] 74.9 H Lymph % (Auto) 15.4 L Laclede % (Auto) 7.7 Eos % (Auto) 0.4 [...] Clarity Clear Urine pH 8.0 Ur Specific Swanton 1.010 Urine Protein 15 H Urine Glucose [...] pleural effusion with compressive atelectasis. Reading Location: [facility] Discharge Plan Triage Chief Complaint: Mental [...] Marianna Wagner NP Referrals: Marianna Wagner NP, ORDER FULFILLMENT SPECIALIST-C [Primary Care Provider] - Print Language: Tanzanian Disposition Disposition: Acute Care Hospital [facility] What to do if you have Problems For any increased pain, shortness of breath, bleeding, nausea or vomiting, chestpain, or any unexpected problems, contact your Primary Care Provider. Call [facility] ([phone]) or report to the closest Emergency Room. Call 911 if necessary. 07/11/24 1400 <Electronically signed by Perez Ribeiro DO> Cosigner Signature (if applicable): CC: ALAN Wagner ~ Signed [facility] Work Phone: 1([phone] 561-902706-03-2025 Discharge summary Author Perez Ribeiro [facility] Note Date/Time July 11, 2024 2:09p m [facility] Medical Records Department [address] [place] [address] Emergency Department Summary 07/11/24 MR#: [id number] Acct: [id number] Name: SAURAVTIBURCIOJANEENANALILIA JAMARI Rep #:[id number] : 1960 63 From: Perez Ribeiro DO PCP: Marianna Queden, ORDER FULFILLMENT SPECIALIST-C Status:REG E R Location: ED HPI History [...] he has also been very nauseous lately. [facility] Medical History Thrombocytopenia Chronic pancreatitis Macrocytosis associated [...] reflux #60 tabs 06/27/23 Unknown Rx release pqrwig-fchvjhbb-nmpomxg 1 cap PO TIDCM #90 caps 06/09 [...] 74.9 H Lymph % (Auto) 15.4 L [place] % (Auto) 7.7 Eos % (Auto) 0.4 [...] Clarity Clear Urine pH 8.0 Ur Specific Swanton 1.010 Urine Protein 15 H Urine Glucose [...] pleural effusion with compressive atelectasis. Reading Location[facility] Discharge Plan Triage Chief Complaint: Mental [...] Provider: Marianna Wagner NP Referrals: Marianna Wagner ORDER FULFILLMENT SPECIALIST, ORDER FULFILLMENT SPECIALIST-C [Primary Care Provider] - Print Language: Tanzanian Disposition Disposition: Acute Care Hospital [facility] What to do if you have Problems For any increased pain, shortness of breath, bleeding, nausea or vomiting, chestpain, or any unexpected problems, contact your Primary Care Provider. Call [facility] ([phone]) or report to the closest Emergency Room. Call 911 if necessary. 07/11/24 1409 <Electronically signed by Perez Ribeiro DO> Esmer Signature (if applicable): CC: ORDER FULFILLMENT SPECIALIST-C Marianna Wagner ~ Signed [facility] Work Phone: [phone] Radiology Diagnostic study [facility]06-03-2025 NoteHNO ID: [id number] Author: RADHA ETIENNE RN Service: ? Author Type: Registered Nurse Type: Progress Notes Filed: 07/11/2024 12:49 Note Text: AG TRANSITIONAL CARE MANAGEMENT (TCM) FOLLOW-UP NOTE Patient identified by name and date of : YES Diagnosis: CHF Summary: TCM RN called for TCM f/u (D/C 07/06/24). Pt isn't home at this time. Health leads screening tool questions performed? Addressed 07/07/24 N/A Concerns: N/A Jail Guard plan for next outreach: Will follow-up next wk. Signature: Radha Etienne RN [facility] 11[facility] History of Present illness Narrative* Radha Etienne RN - 07/11/2024 12:34 PM EDT AG TRANSITIONAL CARE MANAGEMENT (TCM) FOLLOW-UP NOTE Patient identified by name and date of : YES Diagnosis: CHF Summary: TCM RN called for TCM f/u (D/C 07/06/24). Pt isn't home at this time. Health leads screening tool questions performed? Addressed 07/07/24 N/A Concerns: N/A Jail Guard plan for next outreach: Will follow-up next wk. Signature: Radha Etienne RN July 11, 2024 [facility]2025 NotePatient Outreach (AGACM) ANALILIA MELENDREZ ([id number]) 1960 M Date Time Provider Department 07/11/24 RADHA ETIENNE [facility] During your visit today, we recorded the following information about you: Radha Etienne RN 07/11/2024 12:49 PM Signed AG TRANSITIONAL CARE MANAGEMENT (TCM) FOLLOW-UP NOTE Patient identified by name and date of : YES Diagnosis: CHF Summary: TCM RN called for TCM f/u (D/C 07/06/24). Pt isn't home at this time. Health leads screening tool questions performed? Addressed 07/07/24 N/A Concerns: N/A Jail Guard plan for next outreach: Will follow-up next [...] fourteen (14) days to upper arm. - fwmqok-sexlxlmq-cwsteut (CREON 36) 36,000-114,000- 180,000 unit delayed release capsule Take 2 pills by mouth with first bite of meal and take 1 pill with snacks. Max 10 per day. - Cholecalciferol, Vitamin D3, (VITAMIN D-3) 50 mcg (2,000 unit) cap Take 1 capsule by mouth once daily. 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*01/03/2017 Chronic pancreatitis (HCC) [K86.1] 08/09/2023 Calcium [...] myocardial infarction [I25.2] 05/19 (more content not included)...[facility]05-30-2025 NoteHNO ID: [id number] Author: RADHA ETIENNE RN Service: ? Author Type: Registered Nurse Type: Progress Notes Filed: 07/07/2024 11:25 Note Text: TRANSITIONAL CARE MANAGEMENT (TCM) COMMUNITY MONITORING PROGRAM - BOYD SUMMARY: Pt discharged from [facility] on 07/06/24. Admitted for: CHF Non-compliance Patient seen Inpatient TONY Visit? N/A. Patient seen ICARE Program? N/A. Contact made with patient: Yes Hi my name is Radha Etienne RN and I am calling from the [facility] on behalf of your PCP, Marianna Wagner APRN.PHYSICAL THERAPIST TECHNICIAN I understand you were recently in the [...] like to speak with a social work endless steamer tender to help give you support for any [...] TAKEN: No action required WRAP AROUND SERVICES: Laser Beam Color Scanner Operator Referral - Declined Patient educated on importance [...] - encouraged to do so. Radha Etienne, [facility]05-30-2025 History of Present illness Narrative* Radha Etienne, RN - 07/07/2024 10:53 AM EDT TRANSITIONAL CARE MANAGEMENT (TCM) COMMUNITY MONITORING PROGRAM - BOYD SUMMARY: Pt discharged from [facility] on 07/06/24. Admitted for: CHF Non-compliance Patient seen Inpatient TONY Visit? N/A. Patient seen ICARE Program? N/A. Contact made with patient: Yes Hi my name is Radha Etienne RN and I am calling from the [facility] on behalf of your PCP, Marianna Wagner APRN.PHYSICAL THERAPIST TECHNICIAN I understand you were recently in the [...] like to speak with a social work endless steamer tender to help give you support for any [...] TAKEN: No action required WRAP AROUND SERVICES: Laser Beam Color Scanner Operator Referral - Declined Patient educated on importance [...] so. Radha Etienne RN documented in this [facility]Reg[facility] Center05-30-2025 NotePatient Outreach (AGACM) ANALILIA MELENDREZ ([id number]) 1960 M Date Time Provider Department 07/07/24 RADHA ETIENNE [facility] During your visit today, we recorded the following information about you: Radha Etienne, ELIS 07/07/2024 11:25 AM Signed TRANSITIONAL CARE MANAGEMENT (TCM) COMMUNITY MONITORING PROGRAM - BOYD SUMMARY: Pt discharged from [facility] on 07/06/24. Admitted for: CHF Non-compliance Patient seen Inpatient TONY Visit? N/A. Patient seen ICARE Program? N/A. Contact made with patient: Yes Hi my name is Radha Etienne RN and I am calling from the [facility] on behalf of your PCP, Marianna Wagner APRN.PHYSICAL THERAPIST TECHNICIAN I understand you were recently in the [...] like to speak with a social work endless steamer tender to help give you support for any [...] TAKEN: No action required WRAP AROUND SERVICES: Laser Beam Color Scanner Operator Referral - Declined Patient educated on importance [...] MEAL - ramipril (ALTACE) (more content not included)...[facility] 07-06-2024 [facility]05-28-2025 Progress note Author [facility] Note Date/Time July 05, 2024 1:44p [facility] Medical Records Department [address] [place] [address] Progress Note - Hospitalist 07/05/24 1119 MR#: [id number] Acct: [id number] Name: ANALILIA MELENDREZ Rep #:[id number] : 1960 63 From: Chris de la cruz DO PCP: ALAN Wilde Status:ADM I N Location: [place] [address] Reason for Visit Reason for Visit: Diagnoses [...] Antibody < 0.2, Sm (Khalil) Antibody <0.2, HIGH SCHOOL SOCIAL SCIENCE TEACHER Antibody <0.2, Scl-70 Scleroderma Ab <0.2, Double [...] is a 63-year-old male who presented to [facility] ED on 06/30/2024 with worsening [...] 35 minutes. Charges/Coding Visit Charges Inpatient E&M: 16707 Subs Hosp L2 07/05/24 1344 <Electronically signed by Chris Aragon DO> Cosigner Signature (if applicable): CC: ~ Signed [facility] Work Phone: 1(523) 146-289905-27-2025 Progress note Author Antony Espitia [facility] Note Date/Time July 04, 2024 5:44p m [facility] Medical Records Department [address] [place] [address] Progress Note 07/04/24 1741 MR#: [id number] Acct: [id number] Name: ANALILIA MELENDREZ Rep #:[id number] : 1960 63 From: Antony Espitia DO PCP: VINOD WildeC Status:ADM I N Location: [place] [address] Assessment & Plan Assessment/Plan (1) Chronic pancreatitis: [...] workup. Poor prognosis. Visit Charges Inpatient E&M: 35857 Subs Hosp L3 07/04/24 1744 <Electronically signed by Antony Espitia DO> Antony Espitia DO Cosigner Signature (if applicable): CC: ~ Signed [facility] Work Phone: 1(851) 869-239605-27-2025 Progress note Author Chris Aragon [facility] Note Date/Time July 04, 2024 12:39 pm [facility] Medical Records Department [address] [place] [address] Progress Note - Hospitalist 07/04/24 1135 MR#: [id number] Acct: [id number] Name: ANEESHANALILIACULLEN KAUFFMAN Rep #:[id number] : 1960 63 From: Chris de la cruz DO PCP: ALAN Wilde Status:ADM I N Location: [place] [address] Reason for Visit Reason for Visit: Diagnoses [...] Total Protein Cancelled, Urine Albumin Cancelled, U Pufkm-2-Jzlpnehb Cancelled, U Sgaih-7-Oxddateg Cancelled, U Beta Globulin Cancelled, U Gamma Globulin Cancelled, U PEP M-Herb Cancelled, Urine Immunofixation Cancelled, Urine HELENA Interpret Cancelled, Ur Immunofix PEP Note Cancelled, RAMANA-1 Antibody TNP, Sm (Khalil) Antibody TNP, HIGH SCHOOL SOCIAL SCIENCE TEACHER Antibody TNP, Scl-70 Scleroderma Ab TNP, Antichromatin [...] is a 63-year-old male who presented to [facility] ED on 06/30/2024 with worsening [...] 35 minutes. Charges/Coding Visit Charges Inpatient E&M: 40974 Subs Hosp L2 07/04/24 1239 <Electronically signed by Chris Aragon DO> Cosigner Signature (if applicable): CC: ~ Signed [facility] Work Phone: 1(391) 383-148905-27-2025 Consult note Author Yaneli Carbone [facility] Note Date/Time July 04, 2024 10:59 am [facility] Medical Records Department [address] [place] [address] Consultation - Cardiology 07/04/24 1030 MR#: [id number] Acct: [id number] Name: ANALILIA MELENDREZ Rep #:[id number] : 1960 63 From: Yaneli Carbone MD PCP: Marianna Wagner ORDER FULFILLMENT SPECIALIST-C Status:ADM I N Location: [place] [address] Assessment & Plan Assessment/Plan (1) Pancytopenia: (2) [...] a redo valve using bovine valve at [facility]. As well he had a pacemaker. [...] discuss further plan he does have established package checker at [facility] But the patient would like to follow-up here with the cardiac team at [facility]. Yaneli Carbone MD,[facility] HPI Consult Data Date of Consult: 07/04/24 HPI Narrative Reason for Consultation: Moderate LV systolic dysfunction/moderate/severe bioprosth. aortic stenosis HPI Narrative: ANALILIA MELENDREZ, is a 63 M who presents [facility] Medical History (Updated 07/03/24 @ 14:55 by [...] reflux #60 tabs 06/27/23 Unknown Rx release mkbnsz-hpywduuu-wijolel 1 cap PO TIDCM #90 caps 06/09 [...] Cardio Cardio Narrative: Review of the cardiac catheterization technician showed paced atrial rhythm Cardiac exam S1-S2 [...] Total Protein Cancelled, Urine Albumin Cancelled, U Bjlxh-1-Kjwoajxd Cancelled, U Pyhhw-1-Wjdlkdwb Cancelled, U Beta Globulin Cancelled, U Gamma Globulin Cancelled, U PEP M-Herb Cancelled, Urine Immunofixation Cancelled, Urine HELENA Interpret Cancelled, Ur Immunofix PEP Note Cancelled, RAMANA-1 Antibody TNP, Sm (Khalil) Antibody TNP, HIGH SCHOOL SOCIAL SCIENCE TEACHER Antibody TNP, Scl-70 Scleroderma Ab TNP, Antichromatin [...] Carbone MD> Cosigner Signature (if applicable): CC: ORDER FULFILLMENT SPECIALIST-C Marianna Wagner; Dr. Conrado Pro DO~ Signed [facility] Work Phone: 1(192) 725-426105-26-2025 Progress note Author [facility] Note Date/Time July 03, 2024 2:55p m [facility] Medical Records Department [address] [place] [address] Progress Note - Hospitalist 07/03/24 1032 MR#: [id number] Acct: [id number] Name: ANALILIA MELENDREZ Rep #:[id number] : 1960 63 From: Chris de la cruz DO PCP: ALAN Wilde Status:ADM I N Location: [place] [address] Reason for Visit Reason for Visit: Diagnoses [...] is a 63-year-old male who presented to [facility] ED on 06/30/2024 with worsening [...] 35 minutes. Charges/Coding Visit Charges Inpatient E&M: 86241 Subs Hosp L2 07/03/24 4375 <Electronically signed by Chris Aragon DO> Cosigner Signature (if applicable): CC: ~ Signed [facility] Work Phone: 1(698) 821-141105-26-2025 Consult note Author Antony Friend [facility] Note Date/Time July 03, 2024 11:50 am [facility] Medical Records Department [address] [place] [address] Consultation - GI 07/03/24 1127 MR#: [id number] Acct: [id number] Name: ANALILIA MELENDREZ Rep #:[id number] : 1960 63 From: Antony Friend DO PCP: Marianna Wagner ORDER FULFILLMENT SPECIALIST-C Status:ADM I N Location: [place] [address] HPI Consult Data Date of Consult: 07/03/24 [...] including gastrointestinal bleeding or liver disease. [facility] Medical History (Updated 07/03/24 @ 11:34 by [...] reflux #60 tabs 06/27/23 Unknown Rx release riijqt-egkrdphd-lwrtfub 1 cap PO TIDCM #90 caps 06/09 [...] sodium restriction Charges/Coding Visit Charges Inpatient E&M: 22271 Init Hosp L3 07/03/24 1150 <Electronically signed by Antony Espitia DO> Cosigner Signature (if applicable): CC: ALAN Wagner; Dr. Conrado Pro DO~ Signed [facility] Work Phone: [phone]) 885-172905-25-2025 Progress note Author Melonie De La Rosa [facility] Note Date/Time July 02, 2024 11:47 am [facility] Medical Records Department [address] [place] [address] Progress Note - Hospitalist 07/02/24 0712 MR#: [id number] Acct: [id number] Name: ANALILIA MELENDREZ Rep #:[id number] : 1960 63 From: Melonie De La Rosa DO PCP: Marianna Wagner ORDER FULFILLMENT SPECIALIST-C Status:ADM I N Location: [place] [address] Reason for Visit Reason for Visit: Abdominal [...] thoracic dissection and was treated at [facility] History of heroin abuse - Remote - patient states he has been clean for approximately 10 years Tobacco abuse - Encouraged cessation - nicotine patch replacement available DVT prophylaxis -Platelet count remains greater than 70,000 -Start enoxaparin 40 daily CODE STATUS - Full code Charges/Coding Visit Charges Inpatient E&M: 08048 Subs Hosp L2 07/02/24 1147 <Electronically signed by Melonie De La Rosa DO> Cosigner Signature (if applicable): CC: ~ Signed [facility] Work Phone: 1(972) 859-931405-24-2025 Progress note Author Melonie De La Rosa [facility] Note Date/Time July 01, 2024 1:59p m [facility] Medical Records Department [address] [facility] [place] [address] Progress Note - Hospitalist 07/01/24 0749 MR#: [id number] Acct: [id number] Name: ANALILIA MELENDREZ Rep #:[id number] : 1960 63 From: Melonie De La Rosa DO PCP: ALAN Wilde Status:ADM I N Location: [place] [address] Reason for Visit Reason for Visit: Abdominal [...] 75.0 H, Lymph % (Auto) 14.4 L, [place] % (Auto) 9.1, Eos % (Auto) 0.3, [...] Alkaline Phosphatase 117, [place] [address] H, Total Protein 5.1 L, Albumin 2.5 L, Globulin 2.6, Lipase 6 L, Ethyl Alcohol < 10.1 06/30/24 16:50: Urine Color Yellow, Urine Clarity Sl. Cloudy, Urine pH 6.0, Ur Specific [place] 1.020, Urine Protein 30 H, Urine Glucose [...] % (Auto) 68.9, Lymph % (Auto) 19.3, [place] % (Auto) 9.8, Eos % (Auto) 1.0, [...] 5. Sequela of chronic pancreatitis. Reading Location: [id number] Chest X-Ray 06/30/24 17:05 IMPRESSION: 1. Moderate bilateral pleural effusions. 2. Linear opacity at the left mid lung zone may represent extension of pleural fluid, atelectasis, or infection. 3. Nodular opacities at the right perihilar region, possibly calcified lymph nodes. Consider CT Chest if patient has risk factors for malignancy. 4. Cardiomegaly. Reading Location: [id number]-W Physical Exam Const alert, oriented x3, no [...] thoracic dissection and was treated at [facility] History of heroin abuse - Remote - patient states he has been clean for approximately 10 years Tobacco abuse - Encouraged cessation - nicotine patch replacement available DVT prophylaxis -Platelet count remains greater than 70,000 -Start enoxaparin 40 daily CODE STATUS - Full code Charges/Coding Visit Charges Inpatient E&M: 68208 Subs Hosp L2 07/01/24 0678 <Electronically signed by Melonie De La Rosa DO> Nixonigner Signature (if applicable): CC: ~ Signed [facility] Work Phone: 1([phone]) 365-142705-24-2025 Procedure [facility] 07-01-2024 History and physical note Author Conrado Fraser [facility] Note Date/Time July 01, 2024 6:46a m [facility] Medical Records Department [address] [place] [address] H&P Exam - Hospitalist 06/30/24 193 MR#: [id number] Acct: [id number] Name: ANALILIA MELENDREZ JAMARI Rep #:[id number] : 1960 63 From: Conrado Gonzalez DO PCP: ALAN Wilde Status:ADM I N Location: [place] [address] HPI - General General Date of Admission: [...] metformin, diabetic neuropathy; on gabapentin, CAD; s/p CT, history of mechanical aortic valve replacement (2014) followed by bioprosthetic aortic valve replacement (~2016), history of SSS; s/p PPM (2017), history of RBBB, history of NSVT, history of AAA, history of thoracic aortic aneurysm with dissection (~2005 & ~2016 at [facility]), chronic EtOH abuse; with patient [...] furosemide and spironolactone who now re-presents to [facility] ER complaining of SOB, abdominal [...] to previousCT on June 22, 2024 with znzmlijg-cr-vkzck volume ascites, unchanged in addition to moderate [...] expected to extend beyond 2 midnights. [facility] Medical History MALIK (acute kidney injury) Seizures [...] reflux #60 tabs 06/27/23 Unknown Rx release sigirz-mpcetfkh-jrlesed 1 cap PO TIDCM #90 caps 06/09 [...] 75.0 H, Lymph % (Auto) 14.4 L, [place] % (Auto) 9.1, Eos % (Auto) 0.3, [...] Sl. Cloudy, Urine pH 6.0, Ur Specific [place] 1.020, Urine Protein 30 H, Urine Glucose [...] 5. Sequela of chronic pancreatitis. Reading Location: [id number] Chest X-Ray 06/30/24 17:05 IMPRESSION: 1. Moderate bilateral pleural effusions. 2. Linear opacity at the left mid lung zone may represent extension of pleural fluid, atelectasis, or infection. 3. Nodular opacities at the right perihilar region, possibly calcified lymph nodes. Consider CT Chest if patient has risk factors for malignancy. 4. Cardiomegaly. Reading Location: [id number] Assessment & Plan Assessment/Plan (1) Volume overload: [...] - Resume current regimen. 12. CAD; s/p CT - Stable. 13. History of mechanical aortic valve replacement (2014) followed by bioprosthetic aortic valve replacement (~2016) - Noted. 14. History of SSS; s/p PPM (2016) - Noted. 15. History of RBBB - Noted. 16. History of NSVT - Noted. 17. History of AAA - Stable. 18. History of thoracic aortic aneurysm with dissection (~2005 & ~2016 at [facility]) - Stable. 19. History of [...] 75 minutes. Charges/Coding Visit Charges Inpatient E&M: 89252 Init Hosp L3 07/01/24 0646 <Electronically signed by Conrado Pro DO> Cosigner Signature (if applicable): CC: ALAN Wagner; Dr. Conrado Pro, ~ Signed [facility] Work Phone: [phone]) 879-102905-24-2025 Discharge summary Author Narendra Gonzalez [facility] Note Date/Time June 30, 2024 11:11 pm [facility] Medical Records Department [address] [place] [address] Emergency Department Summary 06/30/24 MR#: [id number] Acct: [id number] Name: ANALILIA MELENDREZ Rep #:[id number] : 1960 63 From: Narendra Rosado PCP: Marianna Queden, ORDER FULFILLMENT SPECIALIST-C Status:ADM I N Location: [facility] ICD734- 1 HPI HPI - GI History of [...] [facility] Later in his ED course after he has had some time to think about it he states that he is not sure if he is taking any diuretics. He states he remembers taking some tramadol that was prescribed but does not recall anything that would make him urinate. [facility] Medical History MALIK (acute kidney injury) Seizures [...] reflux #60 tabs 06/27/23 Unknown Rx release sympzc-ubelnjwt-lnydqyy 1 cap PO TIDCM #90 caps 06/09 [...] 75.0 H Lymph % (Auto) 14.4 L [place] % (Auto) 9.1 Eos % (Auto) 0.3 [...] Sl. Cloudy Urine pH 6.0 Ur Specific Sw[place] 1.020 Urine Protein 30 H Urine Glucose [...] factors for malignancy. 4. Cardiomegaly. Reading Location: [id number] Management Discussion w/another healthcare provider: Hospitalist Discharge Plan Dx/Rx/DC Orders Clinical Impression: Ascites due to alcoholic cirrhosis, Pleural effusion, Hypoxia, Volume overload,MALIK (acute kidney injury) Disposition Disposition: Acute Care Hospital [facility] What to do if you have Problems For any increased pain, shortness of breath, bleeding, nausea or vomiting, chestpain, or any unexpected problems, contact your Primary Care Provider. Call [facility] ([phone]) or report to the closest Emergency Room. Call 911 if necessary. 06/30/24 9869 <Electronically signed by Narendra Gonzalez DO> Cosigner Signature (if applicable): CC: ORDER FULFILLMENT SPECIALIST-Stephen Wagner ~ Signed [facility] Work Phone: 1(707) 908-328005-23-2025 Radiology Diagnostic study [facility]05-23-2025 Radiology Diagnostic study [facility]05-22-2025 NoteHNO ID: [id number] Author: YESSICA UMANA LPN Service: ? Author Type: LICENSED NURSE Type: Progress Notes Filed: 06/29/2024 09:30 Note Text: TRANSITIONAL CARE MANAGEMENT (TCM) COMMUNITY MONITORING PROGRAM - [facility]YD Provider Action/FYI: Per pt he needs to cancel appointment for today as he does not have away to the appointment today. Per pt he will call back to reschedule. SUMMARY: Pt discharged from [facility] on 06/28/2024. Admitted for: Ascites due to alcoholic cirrhosis Patient seen Inpatient TONY Visit? N/A. Patient seen ICARE Program? N/A. Contact made with patient: Yes Hi my name is Yessica Umana LPN and I am calling from the [facility] on behalf of your PCP, Marianna Wagner APRN.PHYSICAL THERAPIST TECHNICIAN I understand you were recently in the [...] like to speak with a social work endless steamer tender to help give you support for any [...] present (or call on the way if possible).[place] [address]-22-2025 NotePatient Outreach (AGFAMPLE) ANALILIA MELENDREZ ([id number]) 1960 M Date Time Provider Department 06/29/24 MARIANNA WAGNER During your visit today, we recorded the following information about you: Yessica Umana LPN 06/29/2024 9:30 AM Signed TRANSITIONAL CARE MANAGEMENT (TCM) COMMUNITY MONITORING PROGRAM - [facility] Provider Action/FYI: Per pt he needs to cancel appointment for today as he does not have away to the appointment today. Per pt he will call back to reschedule. SUMMARY: Pt discharged from [facility] on 06/28/2024. Admitted for: Ascites due to alcoholic cirrhosis Patient seen Inpatient TONY Visit? N/A. Patient seen ICARE Program? N/A. Contact made with patient: Yes Hi my name is Yessica Umana LPN and I am calling from the [facility] on behalf of your PCP, Marianna Wagner APRN.PHYSICAL THERAPIST TECHNICIAN I understand you were recently in the [...] like to speak with a social work endless steamer tender to help give you support for any [...] Reviewed: 04/12/2024 Reviewed by: (more content not included)...[facility] 06-28-2024 Consult note [facility] Medical Records Department [address] [place] [address] Anesthesia Postop Eval II 06/27/24 1540 MR#: [id number] Acct: [id number] Name: ANALILIA MELENDREZ Rep #:[id number] : 1960 63 From: Carlso Yanes MD PCP: ALAN Wilde Status:ADM I N Y Race: C Location: [place] [address] 4-1 Anesthesia Postop Eval I Sum Postop [...] Carlos Lyman Signature: Date CC: ~ Signed [facility]05-21-2025 Discharge summary Author Melonie De La Rosa [facility] Note Date/Time June 28, 2024 1:27p [facility] Medical Records Department [address] [place] [address] Discharge Summary 06/28/24 1200 MR#: [id number] Acct: [id number] Name: ANALILIA MELENDREZ Rep #:[id number] : 1960 63 From: Melonie De La Rosa DO PCP: ALAN Wilde Status:ADM I N Location: [place] [address] Providers Date of Admission: 06/25/24 Date of [...] mg PO BID reflux #60 tabs 06/27/23 haidaw-tptzgbyh-sowgazg 24,000-76,000-120,000 unit capsule,delayed rel (Creon) 1cap PO TIDCM #90 caps 06/28/24 tramadol 50 mg tablet 50 mg PO Q8H PRN pain #9 tabs 06/28/24 Hospital Course Operations None Procedures EGD, EKG, Paracentesis and - (Gallbladder ultrasound/CT abdomen pelvis) Summary of Care Provided Minutes Spent on Discharge: 42 Hospital Course: Mr. Melendrez is a 63-year-old white male who presented to the emergency department at [facility] on 06/26/2023 with a chief complaint of abdominal pain and chronic diarrhea. Patient reported that symptoms began several months prior to admission with chronic diarrhea. He reported he had an outpatient workup to include an EGD and colonoscopy in March 2024 done by at [facility]. This was done for anemia. He reported [...] anemia Thrombocytopenia-chronic Hypokalemia-resolved Hypophosphatemia-resolved Constipation-resolved Lactic acidosis-resolved BM-3-veycgsnqqc CAD Essential hypertension Hyperlipidemia Diabetic neuropathy GERD [...] male, sitting on the edge of bed, clinical nursing assistant at bedside, does not appear [...] % (Auto) 66.8, Lymph % (Auto) 21.1, [place] % (Auto) 9.9, Eos % (Auto) 0.9, [...] La Rosa Primary Care Provider: Marianna Wagner ORDER FULFILLMENT SPECIALIST Consulting Providers: Conrado Pro Instructions Additional Instructions [...] Self Care Charges/Coding Visit Charges Inpatient E&M: 76827 Disch Hosp >30min 06/28/24 1327 <Electronically signed by Melonie De La Rosa DO> Cosigner Signature (if applicable): CC: ALAN Wagner; Dr. Melonie De La Rosa DO; Antony Espitia DO~ Signed [facility] Work Phone: 1([phone] 616-489905-21-2025 Discharge summary [facility] Medical Records Department [address] [place] [address] Discharge Summary 06/28/24 1200 MR#: [id number] Acct: [id number] Name: ANALILIA MELENDREZ Rep #:[id number] : 1960 63 From: Melonie De La Rosa DO PCP: ALAN Wilde Status:ADM I N Location: [place] [address] Providers Date of Admission: 06/25/24 Date of Discharge: 06/28/24 Primary Care Physician: ALAN Wilde Consultations 06/26/24 00:39 Consult: Gastroenterology Routine Consulting Provider: [facility] Reason for Consult: Chronic diarrhea with [...] pen (Lantus Solostar U-100 Insulin) 10 unit [id number] DIABETES 11/14/22 metformin 500 mg tablet,extended release [...] mg PO BID reflux #60 tabs 06/27/23 uhcjpo-mytkwfli-twnoaga 24,000-76,000-120,000 unit capsule,delayed rel (Creon) 1cap PO TIDCM #90 caps 06/28/24 tramadol 50 mg tablet 50 mg PO Q8H PRN pain #9 tabs 06/28/24 Hospital Course Operations None Procedures EGD, EKG, Paracentesis and - (Gallbladder ultrasound/CT abdomen pelvis) Summary of Care Provided Minutes Spent on Discharge: 42 Hospital Course: Mr. Melendrez is a 63-year-old white male who presented to the emergency department at [facility] on 06/26/2023 with a chief complaint of abdominal pain and chronic diarrhea. Patient reported that symptoms began several months prior to admission with chronic diarrhea. He reported he had an outpatient workup to include an EGD and colonoscopy in March 2024 done by at [facility]. This was done for anemia. 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 Melonie De La Rosa DO; Antony Espitia DO~ Signed [facility]05[facility]21[facility] Progress note Author Melonie De La Rosa [facility] Note Date/Time June 27, 2024 6:19p m [facility] Medical Records Department [address] [place] [address] Progress Note - Hospitalist 06/27/24 0737 MR#: [id number] Acct: [id number] Name: ANALILIA MELENDREZ Rep #:[id number] : 1960 63 From: Melonie De La Rosa DO PCP: ALAN Wilde Status:ADM I N Location: [place] [address] Reason for Visit Reason for Visit: Abdominal [...] % (Auto) 63.2, Lymph % (Auto) 25.4, [place] % (Auto) 8.9, Eos % (Auto) 1.1, [...] mL of light colored fluid. 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, does not appear [...] thoracic dissection and was treated at [facility] History of heroin abuse - Remote -patient states he has been clean for approximately 10 years Tobacco abuse - Encouraged cessation - nicotine patch replacement available DVT prophylaxis -Platelet count remains greater than 70,000 -Continue Lovenox 40 subcu daily CODE STATUS - Full code Charges/Coding Visit Charges Inpatient E&M: 30966 Subs Hosp L2 06/27/24 1819 <Electronically signed by Melonie De La Rosa DO> Cosigner Signature (if applicable): CC: ~ Signed [facility] Work Phone: 1(244) 767-722805-20-2025 Progress note [facility] Medical Records Department [address] [place] [address] Progress Note - Hospitalist 06/27/24 0737 MR#: [id number] Acct: [id number] Name: ANALILIA MELENDREZ Rep #:[id number] : 1960 63 From: Melonie De La Rosa DO PCP: ALAN Wilde Status:ADM I N Location: [place] [address] Reason for Visit Reason for Visit: Abdominal [...] 0.23, AST 49 H, ALT 27, Alkaline Fpnklydixky99, Total Protein 4.2 L, Albumin 2.0 L, [...] % (Auto) 63.2, Lymph % (Auto) 25.4, [place] % (Auto) 8.9, Eos % (Auto) 1.1, [...] mL of light colored fluid. 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, does not appear [...] thoracic dissection and was treated at [facility] History of heroin abuse - Remote -patient states he has been clean for approximately 10 years Tobacco abuse - Encouraged cessation - nicotine patch replacement available DVT prophylaxis -Platelet count remains greater than 70,000 -Continue Lovenox 40 subcu daily CODE STATUS - Full code Charges/Coding Visit Charges Inpatient E&M: 11359 Subs Hosp L2 06/27/24 1819 Cosigner Signature (if applicable): CC: ~ Signed [facility]05-20-2025 Consult note Author Carlos Yanes [facility] Note Date/Time June 28, 2024 3:08p m [facility] Medical Records Department [address] [place] [address] Anesthesia Postop Eval II 06/27/24 1540 MR#: [id number] Acct: [id number] Name: ANALILIA MELENDREZ Rep #:[id number] : 1960 63 From: Carlos Yanes MD PCP: Marianna Wagner NP-C Status:ADM I N Y Race: C Location: [place] [address] 4-1 Anesthesia Postop Eval I Sum Postop [...] MD Cosigner Signature: Date CC: ~ Signed [facility] Work Phone: 1(223) 738-574505-20-2025 Consult note Author Wilma Ribeiro [facility] Note Date/Time June 27, 2024 3:17p m [facility] Medical Records Department [address] [place] [address] Anesthesia Postop Eval I 06/27/241515 MR#: [id number] Acct: [id number] Name: ANALILIA MELENDREZ Rep #:[id number] : 1960 63 From: Wilma Ribeiro PCP: ALAN Wilde Status:ADM I N Y Race: C Location: [address] Anesthesia: Postop Eval I Current Vital [...] Wilma Lyman Signature: Date CC: ~ Signed [facility] Work Phone: 1(590) 380-356205-20-2025 Consult note Author Carlos Yanes [facility] Note Date/Time June 27, 2024 2:53p [facility] Medical Records Department [address] [place] [address] Pre-Anesthesia Evaluation 06/27/24 145 MR#: [id number] Acct: [id number] Name: ANALILIA MELENDREZ Rep #:[id number] : 1960 63 From: Carlos Yanes MD PCP: Marianna Wagner ORDER FULFILLMENT SPECIALIST-C Status:ADM I N Y Race: C Location: [place] [address] 4-1 ASA Classification* ASA Classification ASA Classification: [...] Procedure(s): EGD 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 - engineering executive: 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 - engineering executive Hx Hospitalization No 05/09/20 19:26 Any Problems [...] take am of surgery PONV PONV - engineering executive: PONV - engineering executive Female HX of Motion Sickness HX of N/V After Surgery Non-Smoker Duration of Surgery greater than 60 minutes Number of Risk Factors PONV Score Height & Weight Height & Weight: Anesthesia: Height & Weight Height 5 ft 11 in 06/26/24 22:53 Weight: 75.2 kg 06/27/24 05:39 Body Mass Index (BMI) 23.2 06/27/24 05:39 Respiratory Assessment Respiratory Assessment - engineering executive: Respiratory Tract Infection Hx - engineering executive Hx Respiratory Tract Infection No 06/26/24 22:53 STOP Sleep Apnea STOP Sleep Apnea - engineering executive: STOP Sleep Apnea - engineering executive Hx Hypertension Yes 06/26/24 00:18 Hx Sleep [...] Tobacco Use History Tobacco Use History - engineering executive: Tobacco Use History - engineering executive Tobacco Use Smoking Status Current every day smoker 06/26/24 03:49 Hx Tobacco Use Yes 06/26/24 00:18 Years Smoking Packs Smoked per Day Smoking Cessation Date was within the last 15 years Hx Smoking Cessation Date Hx Smoking Cessation No 06/26/24 00:18 Counseling Hematologic Medial History Hematologic Hx - engineering executive: 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 Hx of Blood Transfusion No 06/26/24 00:18 [...] confused, unrespo /Reproduction History /Reproductive History - engineering executive: /Reproductive Hx- engineering executive Hx Now No 06/26/24 22:53 Gestational Age [...] Glycerin/Hypromellose/Polyethylene 2 drp 06/26/24 21:37 06/27/24 12:22 Glycerin/Hypromellose/Eaz856 15 Ml Bottle EACH EYE 2 drp [...] mls @ 15 mls/hr 06/26/24 06:11 IV .[id number] PRN Saline Flush Sodium Chloride 250 mls @ 15 mls/hr 06/26/24 06:11 IV .[id number] PRN Additional IVPB Infusion Lactated Ringer's 1,000 mls @ 15 mls/hr 06/27/24 14:15 06/27/24 14:26 IV 15 mls/hr .Q48H KUNAL Administration Insulin Glargine 5 unit 06/26/24 12:00 06/27/24 12:21 Insulin Glargine-Yfgn 100 Unit/Ml Pen SC Not Given 1200 [facility] Insulin Human Lispro 0 unit 06/26/24 00:39 06/27/24 12:20 Insulin Lispro 100 Unit/Ml Insuln.Pen SC Not Given Q6 [facility] Protocol Lorazepam 0.5 mg 06/26/24 00:39 Lorazepam 2 Mg/Ml Wch Syringe IV Q4H PRN PRN AGITATION Melatonin 6 mg 06/26/24 22:22 06/26/24 22:52 Melatonin 3 Mg Tablet PO 6 mg QHS PRN PRN Administration SLEEP Metoprolol Succinate 25 mg 06/26/24 10:00 06/27/24 08:19 Metoprolol(Xl)Succ 25 Mg Tablet PO Not Given BID [facility] Protocol Morphine Sulfate 2 mg 06/26/24 00:39 06/26/24 01:59 Morphine 2 Mg/Ml Syringe IV 2 mg Q4H PRN PRN Administration Pain Score 6-10 Multivitamins 1 tablet 06/26/24 08:00 06/27/24 08:16 Multivitamins,Therapeutic Tablet [facility] Nicotine 14 mg 06/26/24 00:39 06/27/24 08:18 Nicotine 14 Mg Patch TD 14 mg DAILY [facility] Administration Ondansetron HCl 4 mg 06/26/24 00:39 Ondansetron 4 Mg/2 Ml Vial IV Q8H PRN PRN NAUSEA/VOMITING Pancrelipase 1 cap 06/27/24 08:00 06/27/24 12:20 Creon 24,[address] Capsule PO Not Given TIDCM [facility] Pantoprazole Sodium 40 mg 06/26/24 22:00 06/27/24 08:19 Pantoprazole Sodium 40 Mg Tablet PO Not Given BID [facility] Polyethylene Glycol 17 gm 06/26/24 12:45 06/27/24 08:18 Polyethylene Glycol 3350 17 Gm Packet PO Not Given BID [facility] Promethazine HCl 25 mg 06/26/24 00:39 Promethazine [...] 25 Mg Tablet PO Not Given DAILY [facility] Protocol Thiamine HCl 100 mg 06/26/24 08:00 06/27/24 08:17 Thiamine Hydrochloride 100 Mg Tablet [facility] History MALIK (acute kidney [...] no additional complaints, except as documented. 06/27/24 5467 <Electronically signed by Carlos Yanes MD > Date _ Carlos Yanes MD Cosigner Signature: Date CC: ~ Signed [facility] Work Phone: 1(788) 211-809505-20-2025 Progress note Author Antony Friend [facility] Note Date/Time June 27, 2024 2:46p m [facility] Medical Records Department [address] [facility] [place] [address] Progress Note 06/27/24 1444 MR#: [id number] Acct: [id number] Name: ANALILIA MELENDREZ Rep #:[id number] : 1960 63 From: Antony Espitia DO PCP: ALAN Wilde Status:ADM I N Location: [place] [address] Progress Note Patient is for upper endoscopy [...] ASA of 3. Visit Charges Inpatient E&M: 17888 Subs Hosp L3 06/27/24 9586 <Electronically signed by Antony Espitia DO> Antony Espitia DO Cosignalex Signature (if applicable): CC: ~ Signed [facility] Work Phone: 1(385) 536-774405-20-2025 Consult note [facility] Medical Records Department [address] [place] [address] Anesthesia Postop Eval I 06/27/241515 MR#: [id number] Acct: [id number] Name: ANALILIA MELENDREZ Rep #:[id number] : 1960 63 From: Wilma Ribeiro PCP: ALAN Wilde Status:ADM I N Y Race: C Location: [place] [address] Anesthesia: Postop Eval I Current Vital Signs [...] Wilma Lyman Signature: Date CC: ~ Signed [facility]05-20-2025 Procedure note [facility] Medical Records Department [address] [place] [address] EGD Report MR#: [id number] Acct: [id number] Name: ANALILIA MELENDREZ Rep #:[id number] : 1960 63 From: Antony Espitia DO [...] pathology results. Procedure Code(s): --- Professional --- 70250, Small intestinal endoscopy, enteroscopy beyond second portion of duodenum, not including ileum; with biopsy, single or multiple CPT copyright 2021 [employer]. All rights reserved. The codes documented in this report are preliminary and upon engineering technology instructor review may be revised to meet current compliance requirements. Antony Espitia DO 06/27/2024 3:14:55 PM This report has been signed electronically. Number of Addenda: 0 Note Initiated On: 06/27/2024 2:47 PM 06/27/24 7495 Date _ Antony Espinosa Signature: Date (if indicated) CC: ALAN Wagner; Antony Espitia DO ~ Date Dictated: 06/27/24 1447 Date Transcribed: Historical Manuscripts Curator: RF Signed [facility]05-20-2025 Procedure note [facility] Medical Records Department [address] [place] [address] Operative Report - CC Letter MR#: [id number] Acct: [id number] Name: ANALILIA MELENDREZ Rep #:[id number] : 1960 63 From: Antony Espitia DO [...] DO Cosigner Signature: Date (if indicated) CC: ORDER FULFILLMENT SPECIALIST-C Marianna Wagner; Dr. Rolan Romero, DO; Dr. Conrado Pro, DO; Dr. Melonie De La Rosa, DO ~ Date Dictated: 06/27/24 1447 Date Transcribed: Historical Manuscripts Curator: RF Signed [facility]05-20-2025 Consult note [facility] Medical Records Department [address] [place] [address] Pre-Anesthesia Evaluation 06/27/24 1452 MR#: [id number] Acct: [id number] Name: ANALILIA MELENDREZ Rep #:[id number] : 1960 63 From: Carlos Yanes MD PCP: ALAN Wilde Status:ADM I N Y Race: C Location: [place] [address] ASA Classification* ASA Classification ASA Classification: 3 [...] Procedure(s): EGD 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 - engineering executive: 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 - engineering executive Hx Hospitalization No 05/09/20 19:26 Any Problems [...] take am of surgery PONV PONV - engineering executive: PONV - engineering executive Female HX of Motion Sickness HX of N/V After Surgery Non-Smoker Duration of Surgery greater than 60 minutes Number of Risk Factors PONV Score Height & Weight Height & Weight: Anesthesia: Height & Weight Height 5 ft 11 in 06/26/24 22:53 Weight: 75.2 kg 06/27/24 05:39 Body Mass Index (BMI) 23.2 06/27/24 05:39 Respiratory Assessment Respiratory Assessment - engineering executive: Respiratory Tract Infection Hx - engineering executive Hx Respiratory Tract Infection No 06/26/24 22:53 STOP Sleep Apnea STOP Sleep Apnea - engineering executive: STOP Sleep Apnea - engineering executive Hx Hypertension Yes 06/26/24 00:18 Hx Sleep [...] Tobacco Use History Tobacco Use History - engineering executive: Tobacco Use History - engineering executive Tobacco Use Smoking Status Current every day smoker 06/26/24 03:49 Hx Tobacco Use Yes 06/26/24 00:18 Years Smoking Packs Smoked per Day Smoking Cessation Date was within the last 15 years Hx Smoking Cessation Date Hx Smoking Cessation No 06/26/24 00:18 Counseling Hematologic Medial History Hematologic Hx - engineering executive: 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 Hx of Blood Transfusion No 06/26/24 00:18 [...] confused, unrespo /Reproduction History /Reproductive History - engineering executive: /Reproductive Hx- engineering executive Hx Now No 06/26/24 22:53 Gestational Age [...] Glycerin/Hypromellose/Polyethylene 2 drp 06/26/24 21:37 06/27/24 12:22 Glycerin/Hypromellose/Kdy106 15 Ml Bottle EACH EYE 2 drp Q1H PRN Administration DRY EYES Hydralazine HCl 5 mg 06/26/24 00:39 Hydralazine 20 Mg/Ml Vial IV Q8H PRN PRN SBP GREATER THAN 160 Protocol Hydralazine HCl 25 mg 06/26/24 14:00 06/27/24 05:04 Hydralazine 25 Mg Tablet PO Not Given TID [facility] Protocol Dextrose 250 mls @ 0 mls/hr 06/26/24 00:39 Dextrose 10%-Water IV .Q0M PRN HYPOGLYCEMIA Protocol As Directed Sodium Chloride 250 mls @ 15 mls/hr 06/26/24 06:11 IV .[id number] PRN Saline Flush Sodium Chloride 250 mls @ 15 mls/hr 06/26/24 06:11 IV .[id number] PRN Additional IVPB Infusion Lactated Ringer's 1,000 mls @ 15 mls/hr 06/27/24 14:15 06/27/24 14:26 IV 15 mls/hr .Q48H KUNAL Administration Insulin Glargine 5 unit 06/26/24 12:00 06/27/24 12:21 Insulin Glargine-Yfgn 100 Unit/Ml Pen SC Not Given 1200 KUNAL Insulin Human Lispro 0 unit 06/26/24 00:39 06/27/24 12:20 Insulin Lispro 100 Unit/Ml Insuln.Pen SC Not Given Q6 [facility] Protocol Lorazepam 0.5 mg 06/26/24 00:39 Lorazepam 2 Mg/Ml Wch Syringe IV Q4H PRN PRN AGITATION Melatonin 6 mg 06/26/24 22:22 06/26/24 22:52 Melatonin 3 Mg Tablet PO 6 mg QHS PRN PRN Administration SLEEP Metoprolol Succinate 25 mg 06/26/24 10:00 06/27/24 08:19 Metoprolol(Xl)Succ 25 Mg Tablet PO Not Given BID [facility] Protocol Morphine Sulfate 2 mg 06/26/24 00:39 [...] Unit Dr Capsule PO Not Given TIDCM [facility] Pantoprazole Sodium 40 mg 06/26/24 22:00 06/27/24 08:19 Pantoprazole Sodium 40 Mg Tablet PO Not Given BID [facility] Polyethylene Glycol 17 gm 06/26/24 12:45 06/27/24 08:18 Polyethylene Glycol 3350 17 Gm Packet PO Not Given BID [facility] Promethazine HCl 25 mg 06/26/24 00:39 Promethazine [...] 25 Mg Tablet PO Not Given DAILY [facility] Protocol Thiamine HCl 100 mg 06/26/24 08:00 06/27/24 08:17 Thiamine Hydrochloride 100 Mg [facility]t [facility] MALIK (acute kidney [...] MD Cosigner Signature: Date CC: ~ Signed [facility]05-20-2025 Progress note [facility] Medical Records Department [address] [place] [address] Progress Note 06/27/24 1444 MR#: [id number] Acct: [id number] Name: ANALILIA MELENDREZ Rep #:[id number] : 1960 63 From: Antony Friend DO PCP: ALAN Wilde Status:ADM I N Location: [place] [address] Progress Note Patient is for upper endoscopy [...] ASA of 3. Visit Charges Inpatient E&M: 83673 Subs Hosp L3 06/27/24 1446 Antony Friend DO Cosigner Signature (if applicable): CC: ~ Signed [facility]05-19-2025 Progress note Author Melonie De La Rosa [facility] Note Date/Time June 26, 2024 7:44p m [facility] Medical Records Department [address] [place] [address] Progress Note - Hospitalist 06/26/24 0734 MR#: [id number] Acct: [id number] Name: ANALILIA MELENDREZ Rep #:[id number] : 1960 63 From: Melonie De La Rosa DO PCP: ALAN Wilde Status:ADM I N Location: [facility] [id number]- 1 Reason for Visit Reason for Visit: [...] % (Auto) Cancelled, Lymph % (Auto) Cancelled, [place] % (Auto) Cancelled, Eos % (Auto) Cancelled, [...] Drop Cells Cancelled, Ovalocytes Cancelled, Stomatocytes Cancelled, Whiteside-Rumson Bodies Cancelled, Kristofer Cells Cancelled, Bite Cells [...] % (Auto) 65.3, Lymph % (Auto) 22.1, [place] % (Auto) 11.6 H, Eos % (Auto) [...] Clarity Clear, Urine pH 7.0, Ur Specific [place] 1.010, Urine Protein 15 H, Urine Glucose [...] (Auto) 68.4, Lymph % (Auto) 18.4 L, [place] % (Auto) 11.8 H, Eos % (Auto) [...] thoracic dissection and was treated at [facility] History of heroin abuse - Remote -patient states he has been clean for approximately 10 years Tobacco abuse - Encouraged cessation - nicotine patch replacement available DVT prophylaxis - Platelet count is 100,000 - Start Lovenox 40 subcu daily CODE STATUS - Full code Charges/Coding Visit Charges Inpatient E&M: 94214 Subs Hosp L2 06/26/241943 <Electronically signed by Melonie De La Rosa DO> Cosigner Signature (if applicable): CC: ~ Signed [facility] Work Phone: 1(813) 636-347805-19-2025 Consult note Author Antony Friend [facility] Note Date/Time June 26, 2024 6:15p m [facility] Medical Records Department [address] [place] [address] Consultation - GI 06/26/24 1758 MR#: [id number] Acct: [id number] Name: ANALILIA MELENDREZ Rep #:[id number] : 1960 63 From: Antony Espitia DO PCP: Marianna Wagner NP-C Status:ADM I N Location: [place] [address] HPI Consult Data Date of Consult: 06/26/24 [...] SAG gradient could not be calculated. [facility] Medical History MALIK (acute kidney injury) Seizures [...] % (Auto) 65.3, Lymph % (Auto) 22.1, [place] % (Auto) 11.6 H, Eos % (Auto) [...] Clarity Clear, Urine pH 7.0, Ur Specific Sw[place] 1.010, Urine Protein 15 H, Urine Glucose [...] (Auto) 68.4, Lymph % (Auto) 18.4 L, [place] % (Auto) 11.8 H, Eos % (Auto) [...] mL of light colored fluid. [facility] Assessment & Plan Assessment/Plan (1) Chronic [...] this year done by Dr. Vazquez at [facility] for indication of iron deficiency anemia, [...] IV morphine in ER. 12. CAD; s/p CT - Noted. 13. History of mechanical aortic [...] with dissection (~2005 & ~2016 at [facility]) - Noted. 19. History of [...] 75 minutes. Charges/Coding Visit Charges Inpatient E&M: 55499 Init Hosp L3 06/26/241814 <Electronically signed by Antony Espitia DO> Cosigner Signature (if applicable): CC: ALAN Wagner; Dr. Rolan Romero DO~ Signed [facility] Work Phone: 1(309) 915-561405-19-2025 Progress note [facility] Medical Records Department [address] [place] [address] Progress Note - Hospitalist 06/26/24 0734 MR#: [id number] Acct: [id number] Name: ANALILIA MELENDREZ Rep #:[id number] : 1960 63 From: Melonie De La Rosa DO PCP: ALAN Wilde Status:ADM I N Location: [place] [address] Reason for Visit Reason for Visit: Abdominal [...] % (Auto) Cancelled, Lymph % (Auto) Cancelled, [place] % (Auto) Cancelled, Eos % (Auto) Cancelled, [...] Drop Cells Cancelled, Ovalocytes Cancelled, Stomatocytes Cancelled, Whiteside-Rumson Bodies Cancelled, Kristofer Cells Cancelled, Bite Cells [...] % (Auto) 65.3, Lymph % (Auto) 22.1, [place] % (Auto) 11.6 H, Eos % (Auto) [...] Clarity Clear, Urine pH 7.0, Ur Specific Sw[place] 1.010, Urine Protein 15 H, Urine Glucose [...] (Auto) 68.4, Lymph % (Auto) 18.4 L, [place] % (Auto) 11.8 H, Eos % (Auto) [...] thoracic dissection and was treated at [facility] History of heroin abuse - Remote -patient states he has been clean for approximately 10 years Tobacco abuse - Encouraged cessation - nicotine patch replacement available DVT prophylaxis - Platelet count is 100,000 - Start Lovenox 40 subcu daily CODE STATUS - Full code Charges/Coding Visit Charges Inpatient E&M: 97960 Subs Hosp L2 06/26/241943 Cosigner Signature (if applicable): CC: ~ Signed [facility]05-19-2025 Consult note [facility] Medical Records Department [address] [place] [address] Consultation - GI 06/26/24 1758 MR#: [id number] Acct: [id number] Name: ANALILIA MELENDREZ Rep #:[id number] : 1960 63 From: Antony Espitia DO PCP: Marianna Wagner ORDER FULFILLMENT SPECIALIST-C Status:ADM I N Location: [place] [address] HPI Consult Data Date of Consult: 06/26/24 [...] SAG gradient could not be calculated. [facility] Medical History MALIK (acute kidney injury) Seizures [...] % (Auto) 65.3, Lymph % (Auto) 22.1, [place] % (Auto) 11.6 H, Eos % (Auto) [...] Clarity Clear, Urine pH 7.0, Ur Specific Swanton 1.010, Urine Protein 15 H, Urine Glucose [...] (Auto) 68.4, Lymph % (Auto) 18.4 L, [place] % (Auto) 11.8 H, Eos % (Auto) [...] of light colored fluid. Reading Location: [facility] Assessment & Plan Assessment/Plan (1) Chronic alcohol [...] this year done by Dr. Vazquez at [facility] for indication of iron deficiency anemia, [...] IV morphine in ER. 12. CAD; s/p CT - Noted. 13. History of mechanical aortic [...] with dissection (~2005 & ~2017 at [facility]) - Noted. 19. History of [...] 75 minutes. Charges/Coding Visit Charges Inpatient E&M: 64151 Init Hosp L3 06/26/24 4669 Cosigner Signature (if applicable): CC: ALAN Wagner; Dr. Rolan Romero DO~ Signed [facility]05-19-2025 Radiology Diagnostic study note [facility] Imaging Services [address] [place] [address] Paracentesis with US MR#: [id number] Acct: [id number] Name: ANALILIA MELENDREZ Rep #: [id number] : 1960 M 63 From: Francis Campos MD PCP: ALAN Wilde Status: ADM I N Study:Paracentesis with US Date of Exam: 06/26/24 Exam# [id number] Ordering Dr: Conrado Geronimo DO PROCEDURE: PARACENTESIS WITH US 06/26/2024 REASON FOR EXAM: LARGE ABDOMINAL PELVIC ASCITES W/ CHRONIC ETOH ABU TECHNIQUE: Paracentesis. The procedure as well as the benefits and possible complications including infection were explained to the patient. Informed consent was obtained. The overlying skin was prepped and draped in the usual sterile fashion. Following local anesthetic application, a 5 Libyan catheter was placed into the abdomen. 2050 mL of light colored fluid was aspirated. A sample was sent to the laboratory. COMPARISON: None FINDINGS: Successful paracentesis US/Paracentesis with US IMPRESSION: Successful paracentesis with removal of 2050 mL of light colored fluid. Reading Location: [facility] CC: ALAN Wagner; Dr. Conrado Pro DO ~ Historical Manuscripts Curator: Signed [facility]05-19-2025 Telephone encounter Note* Telephone Encounter - Marianna Wagner APRN.CNP - 06/26/2024 9:57 AM EDT Will address in next OV. [facility]05-19[facility] Miscellaneous Notes* Telephone Encounter - Marianna Wagner [...] Alc. Andrew Ponce MA [facility] History and physical note Author Conrado Fraser [facility] Note Date/Time June 26, 2024 6:34a m [facility] Medical Records Department [address] [place] [address] H&P Exam - Hospitalist 06/25/242128 MR#: [id number] Acct: [id number] Name: ANALILIA MELENDREZ JAMARI Rep #:[id number] : 1960 63 From: Conrado Gonzalez DO PCP: Marianna Wagner ORDER FULFILLMENT SPECIALISTMiahC Status:ADM I N Location: [place] [address] HPI - General General Date of Admission: [...] metformin, diabetic neuropathy; on gabapentin, CAD; s/p CT, history of mechanical aortic valve replacement (2014) followed by bioprosthetic aortic valve replacement (~2016), history of SSS; s/p PPM (2017), history of RBBB, history of NSVT, history of AAA, history of thoracic aortic aneurysm with dissection (~2005 & ~2016 at [facility]), chronic EtOHabuse; with patient admitting to ~2-3 forty ounce beers daily on supplemental thiamine and folate, history of alcoholic hepatitis, history of chronic pancreatitis, history of seizures; likely due to EtOH withdrawal, history of MALIK, GERD with hiatal hernia; on pantoprazole twice daily, history of hernia; s/p repair and generalized anxiety who presents to [facility] ERcomplaining of abdominal pain, chronic diarrhea and chronic alcohol abuse. Mr. Melendrez reports his symptoms began several months prior to admission with chronic diarrhea which includes an outpatient workup including EGD and colonoscopy in March of this year done by Dr. Vazquez at [facility] for indication of iron deficiency anemia, [...] expected to extend beyond 2 midnights. [facility] Medical History MALIK (acute kidney injury) Seizures [...] % (Auto) Cancelled, Lymph % (Auto) Cancelled, [place] % (Auto) Cancelled, Eos % (Auto) Cancelled, [...] Drop Cells Cancelled, Ovalocytes Cancelled, Stomatocytes Cancelled, Whiteside-Rumson Bodies Cancelled, Kristofer Cells Cancelled, Bite Cells [...] % (Auto) 65.3, Lymph % (Auto) 22.1, [place] % (Auto) 11.6 H, Eos % (Auto) [...] Clarity Clear, Urine pH 7.0, Ur Specific Swanton 1.010, Urine Protein 15 H, Urine Glucose [...] ABG results: ABG 06/25/24 19:23 Specimen Type ROAS Sample Site Not entered VBG pH 7.43 [...] this year done by Dr. Vazquez at [facility] for indication of iron deficiency anemia, [...] IV morphine in ER. 12. CAD; s/p CT - Noted. 13. History of mechanical aortic [...] with dissection (~2005 & ~2017 at [facility]) - Noted. 19. History of [...] 75 minutes. Charges/Coding Visit Charges Inpatient E&M: 09178 Init Hosp 06/26/24 0634 <Electronically signed by Conrado Pro DO> Cosigner Signature (if applicable): CC: ALAN Wagner; Dr. Conrado Pro DO~ Signed [facility] Work Phone: 1(251) [phone] Telephone encounter Note* Telephone Encounter - Suzi Haynes MA - 06/26/2024 7:16 AM EDT Patient is currently admitted, would you like us to put a new reminder in. Please advise. Suzi Haynes MA [facility]05-19-2025 Telephone encounter Note* Telephone Encounter - Suzi Haynes MA - 06/26/2024 7:16 AM EDT ----- Message from Andrew Horowitz MA sent at 03/28/2024 8:14 AM EST ----- Remind pt. Time to recheck Alc. Andrew Ponce MA [facility]05-19-2025 History and physical note [facility] Medical Records Department [address] [place] [address] H&P Exam - Hospitalist 06/25/242128 MR#: [id number] Acct: [id number] Name: ANALILIA MELENDREZ Rep #:[id number] : 1960 63 From: Conrado Gonzalez DO PCP: Marianna Wagner, ORDER FULFILLMENT SPECIALIST-C Status:ADM I N Location: [place] [address] HPI - General General Date of Admission: [...] metformin, diabetic neuropathy; on gabapentin, CAD; s/p CT, history of mechanical aortic valve replacement (2014) followed by bioprosthetic aortic valve replacement (~2016), history of SSS; s/p PPM (2016), history of RBBB, history of NSVT, history of AAA, history of thoracic aortic aneurysm with dissection (~2005 & ~2016 at [facility]), chronic EtOHabuse; with patient admittingto ~2-3 forty ounce beers daily on supplemental thiamine and folate, history of alcoholic hepatitis, history of chronic pancreatitis, history of seizures; likely due to EtOH withdrawal, history of MALIK , GERD with hiatal hernia; on pantoprazole twice daily, history of hernia; s/p repair and generalized anxiety who [facility] ERcomplaining of abdominal pain, chronic diarrhea and chronic alcohol abuse. Mr. Melendrez reports his symptoms began several months prior to admission with chronic diarrhea which includes an outpatient workup including EGD and colonoscopy in March of this year done by Dr. Vazquez at [facility] for indication of iron deficiency anemia, [...] expected to extend beyond 2 midnights. [facility] Medical History MALIK (acute kidney injury) Seizures [...] % (Auto) Cancelled, Lymph % (Auto) Cancelled, [place] % (Auto) Cancelled, Eos % (Auto) Cancelled, [...] Drop Cells Cancelled, Ovalocytes Cancelled, Stomatocytes Cancelled, Whiteside-Rumson Bodies Cancelled, Madison Cells Cancelled, Bite Cells Cancelled, Crenated Cell [...] % (Auto) 65.3, Lymph % (Auto) 22.1, [place] % (Auto) 11.6 H, Eos % (Auto) [...] 0.46, AST 62 H, ALT 32, Alkaline [id number], Total Protein 5.0 L, Albumin 2.5 L, Globulin 2.5, Albumin/Globulin Ratio 1.0, Lipase 6L, b-Hydroxybutyric mmol/L 0.1 06/25/24 19:17: POC Glucose 348 H 06/25/24 19:23: Urine Color Yellow, Urine Clarity Clear, Urine pH 7.0, Ur Specific Sw[place] 1.010, Urine Protein 15 H, Urine Glucose [...] this year done by Dr. Vazquez at [facility] for indication of iron deficiency anemia, [...] IV morphine in ER. 12. CAD; s/p CT - Noted. 13. History of mechanical aortic [...] with dissection (~2005 & ~2017 at [facility]) - Noted. 19. History of [...] 75 minutes. Charges/Coding Visit Charges Inpatient E&M: 84786 Init Hosp L3 06/26/24 0675 Cosigner Signature (if applicable): CC: ALAN Wagner; Dr. Conrado Pro, DO~ Signed [facility]05-19-2025 Discharge summary Author Rolan Romero [facility] Note Date/Time June 25, 2024 11:17 pm [facility] Medical Records Department [address] [place] [address] Emergency Department Summary 06/25/24 MR#: [id number] Acct: [id number] Name: ANALILIA MELENDREZ Rep #:[id number] : 1960 63 From: Rolan crowellett PCP: Marianna Wagner, ORDER FULFILLMENT SPECIALIST-C Status:ADM I N Location: [place] [address] HPI History of Present Illness Chief Complaint: [...] intact Psych: Cooperative, appropriate mood and affect [facility] Medical History MALIK (acute kidney injury) Seizures [...] had a EGD and colonoscopy done at [facility]. Will Clinisync for these results. Differential [...] % (Auto) Cancelled Lymph % (Auto) Cancelled [place] % (Auto) Cancelled Eos % (Auto) Cancelled [...] Drop Cells Cancelled Ovalocytes Cancelled Stomatocytes Cancelled Whiteside-Rumson Bodies Cancelled Madison Cells Cancelled Bite Cells Cancelled Crenated Cell [...] Color Urine Clarity Urine pH Ur Specific Sw[place] Urine Protein Urine Glucose (UA) Urine Ketones [...] % (Auto) 65.3 Lymph % (Auto) 22.1 [place] % (Auto) 11.6 H Eos % (Auto) [...] Target Cells Tear Drop Cells Ovalocytes Stomatocytes Whiteside-Rumson Bodies Madison Cells Bite Cells Crenated Cell Acanthocytes (Spur) [...] Color Urine Clarity Urine pH Ur Specific Sw[place] Urine Protein Urine Glucose (UA) Urine Ketones [...] (Auto) Neut % (Auto) Lymph % (Auto) [place] % (Auto) Eos % (Auto) Baso % [...] Target Cells Tear Drop Cells Ovalocytes Stomatocytes Whiteside-Rumson Bodies Kristofer Cells Bite Cells Crenated Cell Acanthocytes (Spur) Rouleaux Schistocytes Sodium Potassium Chloride Carbon Dioxide Anion Gap BUN Creatinine Estim Creat Clear Calc Est GFR (MDRD) Non-Af BUN/Creatinine Ratio Glucose Lactic Acid Calcium Magnesium Total Bilirubin AST ALT Alkaline Phosphatase Total Protein Albumin Globulin Albumin/Globulin Ratio Lipase b-Hydroxybutyric mmol/L Urine Color Yellow Urine Clarity Clear Urine pH 7.0 Ur Specific Swanton 1.010 Urine Protein 15 H Urine Glucose [...] Provider: Marianna Wagner NP Referrals: Marianna Wagner ORDER FULFILLMENT SPECIALIST, ORDER FULFILLMENT SPECIALIST-C [Primary Care Provider] - Print Language: Tanzanian What to do if you have Problems For any increased pain, shortness of breath, bleeding, nausea or vomiting, chestpain, or any unexpected problems, contact your Primary Care Provider. Call [facility] ([phone]) or report to the closest Emergency Room. Call 911 if necessary. 06/25/24 2110 <Electronically signed by Rolan Romero DO> Cosigner Signature (if applicable): CC: ALAN Wagner ~ Signed [facility] Work Phone: 1(453) 295-103605-19-2025 Evaluation note* Diagnosis Onset Date Resolution Status [...] Chronic pancreatitis chronic June 25, 2024 10:15pm [facility] Work Phone: 1([phone]) 302-104705-19-2025 Evaluation note* Diagnosis Onset Date Resolution Status [...] 30, 2024 7:47pm Thrombocytopenia inactive June 7:47pm [facility] Work Phone: 1(285) 616-292505-19-2025 Evaluation note* Diagnosis Onset Date Resolution Status [...] 2024 2:06pm Suicidal ideation acute July 2:06pm [facility] Work Phone: [phone]) [phone] Evaluation note* Diagnosis Onset Date Resolution Status [...] 2024 2:06pm Suicidal ideation acute July 2:06pm [facility] Work Phone: 1([phone]) [phone] Evaluation note* Diagnosis Onset Date Resolution Status [...] 2024 2:06pm Suicidal ideation resolved July 2:06pm [facility] [employer] Work Phone: 1(403) 360-185505-19-2025 Evaluation note* Diagnosis Onset Date Resolution Status [...] 8:44pm History of aortic aneurysm repair ac [place] August 01, 2024 8:44pm Hypoxia acute August 01 8:44pm Elevated troponin resolved August 012024 8:44pm [facility] Work Phone: 1(785) 189-395805-19-2025 Evaluation note* Diagnosis Onset Date Resolution Status [...] hepatic disorder acute August 29, 2024 12:38am [facility] Work Phone: [phone]) [phone] Evaluation note* Diagnosis Onset Date Resolution Status [...] 28 1:07pm Chronic pancreatitis chronic 2024 1:07pm [facility] [employer] Work Phone: 1(833) 996-174705-19-2025 Evaluation note* Diagnosis Onset Date Resolution Status [...] heart failure acute October 12 025 4:09pm [facility] Work Phone: 1(955) 371-854205-18-2025 Discharge summary [facility] Medical Records Department [address] [place] [address] Emergency Department Summary 06/25/24 MR#: [id number] Acct: [id number] Name: ANALILIA MELENDREZ Rep #:[id number] : 1960 63 From: Rolan stock DO PCP: ALAN Wilde Status:ADM I N Location: [place] [address] HPI History of Present Illness Chief Complaint: [...] intact Psych: Cooperative, appropriate mood and affect [facility] Medical History MALIK (acute kidney injury) Seizures [...] had a EGD and colonoscopy done at [facility]. Will Clinisync for these results. Differential [...] % (Auto) Cancelled Lymph % (Auto) Cancelled [place] % (Auto) Cancelled Eos % (Auto) Cancelled [...] Drop Cells Cancelled Ovalocytes Cancelled Stomatocytes Cancelled Whiteside-Rumson Bodies Cancelled Kristofer Cells Cancelled Bite Cells [...] Color Urine Clarity Urine pH Ur Specific [place] Urine Protein Urine Glucose (UA) Urine Ketones [...] % (Auto) 65.3 Lymph % (Auto) 22.1 [place] % (Auto) 11.6 H Eos % (Auto) [...] Target Cells Tear Drop Cells Ovalocytes Stomatocytes Whiteside-Rumson Bodies Madison Cells Bite Cells Crenated Cell Acanthocytes (Spur) [...] Color Urine Clarity Urine pH Ur Specific [place] Urine Protein Urine Glucose (UA) Urine Ketones [...] (Auto) Neut % (Auto) Lymph % (Auto) [place] % (Auto) Eos % (Auto) Baso % [...] Target Cells Tear Drop Cells Ovalocytes Stomatocytes Whiteside-Rumson Bodies Kristofer Cells Bite Cells Crenated Cell Acanthocytes (Spur) Rouleaux Schistocytes Sodium Potassium Chloride Carbon Dioxide Anion Gap BUN Creatinine Estim Creat Clear Calc Est GFR (MDRD) Non-Af BUN/Creatinine Ratio Glucose Lactic Acid Calcium Magnesium Total Bilirubin AST ALT Alkaline Phosphatase Total Protein Albumin Globulin Albumin/Globulin Ratio Lipase b-Hydroxybutyric mmol/L Urine Color Yellow Urine Clarity Clear Urine pH 7.0 Ur Specific [place] 1.010 Urine Protein 15 H Urine Glucose [...] Marianna Wagner NP Referrals: Marianna Wagner NP, ORDER FULFILLMENT SPECIALIST-C [Primary Care Provider] - Print Language: Tanzanian What to do if you have Problems For any increased pain, shortness of breath, bleeding, nausea or vomiting, chestpain, or any unexpected problems, contact your Primary Care Provider. Call [facility] ([phone]) or report tothe closest Emergency Room. Call 911 if necessary. 06/25/24 [id number] Cosigner Signature (if applicable): CC: ALAN Wagner ~ Signed [facility]05-18-2025 Radiology Diagnostic study note [facility] Imaging Services [address] [place] [address] Abdomen/Pelvis W IV Cont ONLY MR#: [id number] Acct: [id number] Name: ANALILIA MELENDREZ Rep #: [id number] : 1960 M 63 From: Lawanda Bernstein MD PCP: ALAN Wilde Status: REG E R Study:Abdomen/Pelvis W IV Cont ONLY Date of E xam: 06/25/24 Exam# [id number] Ordering Dr: Rolan De Souza DO PROCEDURE: [...] of developing HCC. Reading Location: [facility] CC: ORDER FULFILLMENT SPECIALIST-C Marianna Wagner; Dr. Rolan Romero DO ~ Historical Manuscripts Curator: Signed [facility]05-18-2025 Discharge summary Author Rolan Romero [facility] Note Date/Time June 25, 2024 11:17 pm [facility] Medical Records Department [address] [place] [id number] Emergency Department Summary 06/25/24 MR#: [id number] Acct: [id number] Name: ANALILIA MELENDREZ Rep #:[id number] : 1960 63 From: Rolan stock DO PCP: ALAN Wilde Status:ADM I N Location: [place] [address] HPI History of Present Illness Chief Complaint: [...] intact Psych: Cooperative, appropriate mood and affect [facility] Medical History MALIK (acute kidney injury) Seizures [...] had a EGD and colonoscopy done at [facility]. Will Clinisync for these results. Differential [...] % (Auto) Cancelled Lymph % (Auto) Cancelled [place] % (Auto) Cancelled Eos % (Auto) Cancelled [...] Drop Cells Cancelled Ovalocytes Cancelled Stomatocytes Cancelled Whiteside-Rumson Bodies Cancelled Madison Cells Cancelled Bite Cells Cancelled Crenated Cell [...] Color Urine Clarity Urine pH Ur Specific [place] Urine Protein Urine Glucose (UA) Urine Ketones [...] % (Auto) 65.3 Lymph % (Auto) 22.1 [place] % (Auto) 11.6 H Eos % (Auto) [...] Target Cells Tear Drop Cells Ovalocytes Stomatocytes Whiteside-Rumson Bodies Kristofer Cells Bite Cells Crenated Cell [...] Color Urine Clarity Urine pH Ur Specific [place] Urine Protein Urine Glucose (UA) Urine Ketones [...] (Auto) Neut % (Auto) Lymph % (Auto) [place] % (Auto) Eos % (Auto) Baso % [...] Target Cells Tear Drop Cells Ovalocytes Stomatocytes Whiteside-Rumson Bodies Madison Cells Bite Cells Crenated Cell Acanthocytes (Spur) Rouleaux Schistocytes Sodium Potassium Chloride Carbon Dioxide Anion Gap BUN Creatinine Estim Creat Clear Calc Est GFR (MDRD) Non-Af BUN/Creatinine Ratio Glucose Lactic Acid Calcium Magnesium Total Bilirubin AST ALT Alkaline Phosphatase Total Protein Albumin Globulin Albumin/Globulin Ratio Lipase b-Hydroxybutyric mmol/L Urine Color Yellow Urine Clarity Clear Urine pH 7.0 Ur Specific [place] 1.010 Urine Protein 15 H Urine Glucose [...] Provider: Marianna Wagner NP Referrals: Marianna Wagner ORDER FULFILLMENT SPECIALIST, ORDER FULFILLMENT SPECIALIST-C [Primary Care Provider] - Print Language: Tanzanian What to do if you have Problems For any increased pain, shortness of breath, bleeding, nausea or vomiting, chestpain, or any unexpected problems, contact your Primary Care Provider. Call [facility] ([phone]) or report to the closest Emergency Room. Call 911 if necessary. 06/25/24 2000 <Electronically signed by Rolan Romero DO> Cosigner Signature (if applicable): CC: ORDER FULFILLMENT SPECIALISTAstrid Wagner ~ Signed [facility] Work Phone: [phone] 283-852705-14-2025 Telephone encounter Note* Telephone Encounter - Andrew Ponce MA - 06/21/2024 2:32 PM EDT Pt. Lm on stating awhile back you put him on antibiotics for a UTI and he would like a refill. Please advise. Andrew Ponce MA [facility]05-14-2025 Miscellaneous Notes* Telephone Encounter - Andrew Ponce MA - 06/21/2024 2:32 PM EDT Pt. Lm on stating awhile back you put him on antibiotics for a UTI and he would like a refill. Please advise. Andrew Ponce MA documented in this encounterRegional Medical Center04-21-2025 Telephone encounter Note * Telephone Encounter - Suzi Haynes MA - 05/29/2024 9:06 AM EDT pharmacy electronically requesting refills as follows: Last seen 12/27/23 . Last refill metoprolol 04/10/24, pantoprazole 02/21/24 . Requested Prescriptions Pending Prescriptions Disp Refills metoprolol tartrate, short acting, (LOPRESSOR) 50 mg tablet [Pharmacy Med Name: METOPROLOL [id number] TABS] 60 tablet 0 Sig: TAKE ONE TABLET BY MOUTH TWICE A DAY pantoprazole DR (PROTONIX) 40 mg tablet [Pharmacy Med Name: PANTOPRAZOLE SODIUM 40MG TBEC] 60 tablet 2 Sig: TAKE ONE TABLET BY MOUTH TWICE A DAY 3O MINUTES BEFORE MEAL Please review and advise. Suzi Haynes MA [facility]04-21-2025 Miscellaneous Notes* Telephone Encounter - Suzi Haynes MA - 05/29/2024 9:06 AM EDT pharmacy electronically requesting refills as follows: Last seen 12/27/23 . Last refill metoprolol 04/10/24, pantoprazole 02/21/24 . Requested Prescriptions Pending Prescriptions Disp Refills metoprolol tartrate, short acting, (LOPRESSOR) 50 mg tablet [Pharmacy Med Name: METOPROLOL [id number] TABS] 60 tablet 0 Sig: TAKE ONE TABLET BY MOUTH TWICE A DAY pantoprazole DR (PROTONIX) 40 mg tablet [Pharmacy Med Name: PANTOPRAZOLE SODIUM 40MG TBEC] 60 tablet 2 Sig: TAKE ONE TABLET BY MOUTH TWICE A DAY 3O MINUTES BEFORE MEAL Please review and advise. Suzi Haynes MA documented in this encounterRegional Medical Center04-07-2025 Telephone encounter Note * Telephone [...] Please review and advise. Andrew Ponce MA [facility]04-07-2025 Miscellaneous Notes* Telephone Encounter - [...] advise. Andrew Ponce MA documented in this encounterRegional Medical Center03-06-2025 Telephone encounter Note * Telephone Encounter - Giulia Rogel MA - 04/13/2024 3:50 PM EST Patient called he was at the [place] [employer] gun[employer] and BP was 180/110 he states he has been having headachesand dizziness. 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 He denies other symptoms patient would like to know if he needs a med change Giulia Rogel MA documented in this encounterRegional [facility] Center03-05-[facility] History of Present illness Narrative* Vandana [...] uses NSAIDs. Occasional reflux. He was in skilled nursing for 6 weeks in june for rehab [...] ascending aorta repair Hyperlipidemia Hypertension Non-ST elevation CT (NSTEMI) (HCC) 06/24 Pacemaker Paroxysmal atrial fibrillation (HCC) RBBB (right bundle branch block) S/P aortic valve replacement [facility] [facility] mechanical Syncope Tachy-fernando syndrome (HCC) Tobacco abuse chronic Tobacco user Type 2 diabetes mellitus (HCC) PAST SURGICAL HISTORY Procedure Laterality Date ABD AORTIC ANEURYSM REPAIR ASCENDING AORTA GRAFT W/AORTIC ROOT COLONOSCOPY SCREENING In [place] COLONOSCOPY SCREENING 04/05/2024 Internal hemorrhoids, poor prep [...] BY MOUTH EVERY DAY 90 tablet 1 [id number] (CREON 36) 36,000-114,000- 180,000 unit delayed release [...] 4 Blood-Glucose Meter,Continuous (FREESTYLE MANGO 3 READER) [facility] [place] Use to check blood [...] or concerns in the meantime. Vandana Edwards APRN.PHYSICAL THERAPIST TECHNICIAN I spent a total of 30 minutes on the date of the service which included preparing to see the patient, [id number] patient care, completing clinical documentation, counseling and [...] evaluation of this patient. documented in this encounterRegional Medical Center03-03-2025 Telephone encounter Note * Telephone [...] 50 mg tablet [Pharmacy Med Name: METOPROLOL [id number] TABS] 60 tablet 0 Sig: TAKE ONE TABLET BY MOUTH TWICE A DAY ramipril (ALTACE) 10 mg capsule [Pharmacy Med Name: RAMIPRIL 10MG CAPS] 30 capsule 0 Sig: TAKE ONE CAPSULE BY MOUTH EVERY DAY Please review and advise. Suzi Haynes MA [facility]03-03-2025 Miscellaneous Notes* Telephone Encounter - [...] 50 mg tablet [Pharmacy Med Name: METOPROLOL [id number] TABS] 60 tablet 0 Sig: TAKE ONE TABLET BY MOUTH TWICE A DAY ramipril (ALTACE) 10 mg capsule [Pharmacy Med Name: RAMIPRIL 10MG CAPS] 30 capsule 0 Sig: TAKE ONE CAPSULE BY MOUTH EVERY DAY Please review and advise. Suzi Haynes MA documented in this encounterRegional Medical Center02-26-2025 Attending History and physical note* Phoebe Vazquez MD - 04/05/2024 2:15 PM EST UPDATED HISTORY AND PHYSICAL EXAMINATION SERVICE DATE: 04/05/2024 SERVICE TIME: 12:15 Participation of a fellow, resident, medical student, or advanced practice provider student in performing the sensitive examination was discussed with the patient or authorized outside sales representative. The patient or authorized outside sales representative has agreed to proceed with [...] [facility] / Outside records reviewed. Latest Ref [facility] 10/15/2023 WBC 3.70 - 11.00 k/uL [...] Abs Lymph 1.00 - 4.00 k/uL 1.82 [place]% % 11.0 Abs [place] <0.87 k/uL 0.51 Eosin% % 0.0 Abs [...] ascending aorta repair Hyperlipidemia Hypertension Non-ST elevation CT (NSTEMI) (HCC) 06/24 Pacemaker Paroxysmal atrial fibrillation (HCC) RBBB (right bundle branch block) S/P aortic valve replacement [facility] [facility] mechanical Syncope Tachy-fernando syndrome (HCC) Tobacco abuse chronic Tobacco user Type 2 diabetes mellitus (HCC) PAST SURGICAL HISTORY PAST SURGICAL HISTORY Procedure Laterality Date ABD AORTIC ANEURYSM REPAIR ASCENDING AORTA GRAFT W/AORTIC ROOT COLONOSCOPY SCREENING In [place] CORONARY ARTERY BYPASS GRAFT HX 2017 2005 HEART CATHETERIZATION 06/24/2016 HEART VALVE REPLACEMENT 2017 Aortic x2 ;2015 HERNIA REPAIR HX PACEMAKER 06/25/2016 REPLACEMENT AORTIC VALVE W BYPASS Allergies: ALLERGIES ALLERGIES No Known Allergies Medications: CURRENT MEDICATIONS Insulin [place], Disposable, (BD ULTRA-FINE NORBERTO PEN NEEDLE) 32 [...] meals and 1 pill with snacks - xffvfy-pfkhkqmc-bdsqiym (CREON 36) 36,000-114,000- 180,000 unit delayed release [...] the patient has no further questions. . [facility] Work Phone: 1(159) 383-749202-26-2025 History and physical note* Phoebe Vazquez MD [...] Abs Lymph 1.00 - 4.00 k/uL 1.82 [place]% % 11.0 Abs [place] <0.87 k/uL 0.51 Eosin% % 0.0 Abs [...] ascending aorta repair Hyperlipidemia Hypertension Non-ST elevation CT (NSTEMI) (HCC) 06/24 Pacemaker Paroxysmal atrial fibrillation (HCC) RBBB (right bundle branch block) S/P aortic valve replacement [facility] [facility] mechanical Syncope Tachy-fernando syndrome (HCC) Tobacco abuse chronic Tobacco user Type 2 diabetes mellitus (HCC) PAST SURGICAL HISTORY PAST SURGICAL HISTORY Procedure Laterality Date ABD AORTIC ANEURYSM REPAIR ASCENDING AORTA GRAFT W/AORTIC ROOT COLONOSCOPY SCREENING In [place] CORONARY ARTERY BYPASS GRAFT HX 2016 2005 HEART CATHETERIZATION 06/24/2016 HEART VALVE REPLACEMENT 2017 Aortic x2 ;2014 HERNIA REPAIR HX PACEMAKER 06/25/2016 REPLACEMENT AORTIC VALVE W BYPASS Allergies: ALLERGIES ALLERGIES No Known Allergies Medications: CURRENT MEDICATIONS Insulin [place], Disposable, (BD ULTRA-FINE NORBERTO PEN NEEDLE) 32 [...] daily. Blood-Glucose Meter,Continuous (FREESTYLE MANGO 3 READER) [facility] [place] Use to check blood [...] meals and 1 pill with snacks - mmrggs-jbgkwcfw-buqevzv (CREON 36) 36,000-114,000- 180,000 unit delayed release [...] the patient has no further questions. . [facility]02-26-[facility]25 History and physical note* Phoebe Vazquez MD - 04/05/2024 2:15 PM EST UPDATED HISTORY AND PHYSICAL EXAMINATION SERVICE DATE: 04/05/2024 SERVICE TIME: 12:15 Participation of a fellow, resident, medical student, or advanced practice provider student in performing the sensitive examination was discussed with the patient or authorized outside sales representative. The patient or authorized outside sales representative has agreed to proceed with [...] Abs Lymph 1.00 - 4.00 k/uL 1.82 [place]% % 11.0 Abs [place] <0.87 k/uL 0.51 Eosin% % 0.0 Abs [...] ascending aorta repair Hyperlipidemia Hypertension Non-ST elevation CT (NSTEMI) (HCC) 06/24 Pacemaker Paroxysmal atrial fibrillation (HCC) RBBB (right bundle branch block) S/P aortic valve replacement [facility] [facility] mechanical Syncope Tachy-fernando syndrome (HCC) Tobacco abuse chronic Tobacco user Type 2 diabetes mellitus (HCC) PAST SURGICAL HISTORY PAST SURGICAL HISTORY Procedure Laterality Date ABD AORTIC ANEURYSM REPAIR ASCENDING AORTA GRAFT W/AORTIC ROOT COLONOSCOPY SCREENING In [place] CORONARY ARTERY BYPASS GRAFT HX 2016 2005 HEART CATHETERIZATION 06/24/2016 HEART VALVE REPLACEMENT 2017 Aortic x2 ;2014 HERNIA REPAIR HX PACEMAKER 06/25/2016 REPLACEMENT AORTIC VALVE W BYPASS Allergies: ALLERGIES ALLERGIES No Known Allergies Medications: CURRENT MEDICATIONS Insulin [place], Disposable, (BD ULTRA-FINE NORBERTO PEN NEEDLE) 32 [...] daily. Blood-Glucose Meter,Continuous (FREESTYLE MANGO 3 READER) [facility] [place] Use to check blood [...] meals and 1 pill with snacks - gerpdj-fwbejzfd-tfgzhgk (CREON 36) 36,000-114,000- 180,000 unit delayed release [...] Abs Lymph 1.00 - 4.00 k/uL 1.82 [place]% % 11.0 Abs [place] <0.87 k/uL 0.51 Eosin% % 0.0 Abs [...] ascending aorta repair Hyperlipidemia Hypertension Non-ST elevation CT (NSTEMI) (HCC) 06/24 Pacemaker Paroxysmal atrial fibrillation (HCC) RBBB (right bundle branch block) S/P aortic valve replacement [facility] [facility] mechanical Syncope Tachy-fernando syndrome (HCC) Tobacco abuse chronic Tobacco user Type 2 diabetes mellitus (HCC) PAST SURGICAL HISTORY PAST SURGICAL HISTORY Procedure Laterality Date ABD AORTIC ANEURYSM REPAIR ASCENDING AORTA GRAFT W/AORTIC ROOT COLONOSCOPY SCREENING In [place] CORONARY ARTERY BYPASS GRAFT HX 2016 2005 HEART CATHETERIZATION 06/24/2016 HEART VALVE REPLACEMENT 2017 Aortic x2 ;2015 HERNIA REPAIR HX PACEMAKER 06/25/2016 REPLACEMENT AORTIC VALVE W BYPASS Allergies: ALLERGIES ALLERGIES No Known Allergies Medications: CURRENT MEDICATIONS Insulin [place], Disposable, (BD ULTRA-FINE NORBERTO PEN NEEDLE) 32 [...] daily. Blood-Glucose Meter,Continuous (FREESTYLE MANGO 3 READER) [facility] [place] [place] Use to check blood [...] meals and 1 pill with snacks - ijsrsa-bkeaqykd-sjpaslp (CREON 36) 36,000-114,000- 180,000 unit delayed release [...] no further questions. . documented in this encounterRegional Medical Center02-26-2025 History of Present illness Narrative* Marta Rosado Carding Supervisor - 04/05/2024 2:15 PM ESTSummary: Pacemaker Check Pacemaker checked with [employer] and data transmitted. Spoke to rep who will fax report directly tothe floor. Floor notified. documented in this encounterRegional Medical Center02-26-2025 NoteHNO ID: [id number] Author: MARTA ROSADO Carding Supervisor Service: Clinical Cardiology Author Type: Carding Supervisor Type: Progress Notes Filed: 04/05/2024 11:41 Note Text: Summary: Pacemaker Check Pacemaker checked with [employer] and data transmitted. Spoke to rep who will fax report directly to the floor. [facility] notified.[id number] Telephone encounter Note* Telephone Encounter - Sigrid Clements RN - 03/31/2024 8:47 AM EST Patient called in and left message, would like to speak to someone regarding medication and prep prior to procedure next week. Attempted callback, no answer, LVM with CB number to office [facility] Miscellaneous Notes* Telephone Encounter - Sigrid Clements RN - 03/31/2024 8:47 AM EST Patient called in and left message, would like to speak to someone regarding medication and prep prior to procedure next week. Attempted callback, no answer, LVM with CB number to office documented in this encounterRegional Medical Center02-19-2025 Telephone encounter Note * Telephone Encounter - Tiara Foote - 03/29/2024 1:40 PM EST I called and spoke to Analilia who did not realize he had these appointments scheduled today, he rescheduled for 04/12/24 @ 9:45 am lab work and 10:00 am appointment Tiara Severino [facility]02-19-2025 Miscellaneous Notes* Telephone Encounter - [...] his scopes ? Thank you, Vandana Edwards APRN.PHYSICAL THERAPIST TECHNICIAN documented in this encounterRegional Medical Center02-19-2025 Telephone encounter Note * Telephone Encounter - Vandana Edwards - 03/29/2024 1:08 PM EST Patient was No Show for todays (03/29/2024) appointment. Can we make sure he is rescheduled for labs and OV sometime the first week in april after he has his scopes ? Thank you, Vandana Edwards APRN.PHYSICAL THERAPIST TECHNICIAN [facility] Work Phone: [phone]) 848-582802-18-2025 Telephone encounter Note* Telephone Encounter - Andrew Ponce MA - 03/28/2024 8:03 AM EST Patient notified . Reminder placed. Andrew Ponce MA [facility]02-18-2025 Miscellaneous Notes* Telephone Encounter - [...] Recheck in 3 months. documented in this encounterRegional Medical Center02-17-2025 Telephone encounter Note * Telephone Encounter - Marianna Wagner APRN.PHYSICAL THERAPIST TECHNICIAN - 03/27/2024 2:48 PM EST A1C increased to 7.6. Will need to increase his daily Glargine insulin to 15 units daily. I am also going to change him to Metformin XR at 1,000 mg daily. Rx sent in. Recheck in 3 months. [facility]02-14-2025 Telephone encounter Note* Telephone Encounter - Gail Varela - 03/24/2024 11:17 AM EST Thank You [place]! [facility]02-14-2025 Miscellaneous Notes* Telephone Encounter - Gail Varela - 03/24/2024 11:17 AM EST Thank You [place]! * Telephone Encounter - Morenita Manuel RN - 03/24/2024 9:26 AM EST Patient call. EGD/ Colonoscopy with Dr Vazquez 04/05/24. Has questions regarding his prep. Would like a call. Thanks [phone] (home) [phone] (cell) documented in this encounterRegional Medical Center02-14-2025 Telephone encounter Note * Telephone Encounter - Morenita Manuel RN - 03/24/2024 9:26 AM EST Patient call. EGD/ Colonoscopy with Dr Vazquez 04/05/24. Has questions regarding his prep. Would like a call. Thanks [phone] (home) [phone] (cell) [facility] Telephone encounter Note* Telephone Encounter [...] NAME: Analilia Melendrez DATE: March 24, 2024 [facility] Work Phone: 1(786) 204-875602-14-2025 Miscellaneous Notes* Telephone Encounter - Brandy Motta [...] DATE: March 24, 2024 documented in this encounterRegional Medical Center02-04-2025 Telephone encounter Note * Telephone Encounter - Emmy Dillon MA - 03/14/2024 3:51 PM EST Spoke with patient about prep instructions. He had to cancel his appointment at [facility] and they will call him tomorrow with a reschedule at [facility]. [facility]02-04-2025 Miscellaneous Notes* Telephone Encounter - Emmy Dillon MA - 03/14/2024 3:51 PM EST Spoke with patient about prep instructions. He had to cancel his appointment at [facility] and they will call him tomorrow with a reschedule at [facility]. * Telephone Encounter - Emmy Dillon [...] advise. Suzi Haynes MA documented in this encounterRegional Medical Center02-04-2025 Telephone encounter Note * Telephone Encounter - Emmy Dillon MA - 03/14/2024 2:39 PM EST Called home phone number on file and another gentleman answered the phone and said Analilia was not at home. Will again before leaving today. [facility] Telephone encounter Note* Telephone Encounter - Suzi Haynes MA - 03/14/2024 11:27 AM EST Patient left another message requesting call back regarding prep. Suzi Haynes MA [facility]02-03-2025 Telephone encounter Note* Telephone Encounter - Suzi Haynes MA - 03/13/2024 10:32 AM EST Patient left message stating he scheduled for some procedures on 03/16/24 but does not know when to start the prep. Please advise. Suzi Haynes MA [facility]01-29-2025 Telephone encounter Note* Telephone Encounter - Andrew Ponce MA - 03/08/2024 11:21 AM EST Lm on pt. Vm with all information Andrew Ponce MA [facility]01-29-2025 Miscellaneous Notes* Telephone Encounter - [...] advise. Suzi Haynes MA documented in this encounterRegional Medical Center01-29-2025 Telephone encounter Note * Telephone Encounter - Ramy Delgadillo DO - 03/08/2024 11:17 AM EST Pt is due for blood work - order attached Ramy Delgadillo DO [facility]01-29-2025 Telephone encounter Note* Telephone Encounter [...] Please review and advise. Suzi Haynes MA [facility]01-13-2025 Telephone encounter Note* Telephone Encounter - Giulia Rogel MA - 02/21/2024 4:34 PM EST Patient called and left a message stating that his appointment was canceled and that they can't do anything for him. He states his bowels are still bothering him Giulia Rogel MA [facility]01-13-2025 Miscellaneous Notes* Telephone Encounter - Giulia Rogel MA - 02/21/2024 4:34 PM EST Patient called and left a message stating that his appointment was canceled and that they can't do anything for him. He states his bowels are still bothering him Giulia Rogel MA documented in this encounterRegional Medical Center01-13-2025 Telephone encounter Note * Telephone [...] Please review and advise. Suzi Haynes MA [facility]01-13-2025 Miscellaneous Notes* Telephone Encounter - [...] advise. Suzi Haynes MA documented in this encounterRegional Medical Center01-13-2025 Telephone encounter Note * Telephone [...] Please review and advise. Suzi Haynes MA [facility]01-13-2025 Miscellaneous Notes* Telephone Encounter - [...] advise. Suzi Haynes MA documented in this encounterRegional Medical Center01-08-2025 Telephone encounter Note * Telephone Encounter - Suzi Haynes MA - 02/16/2024 7:19 AM EST ----- Message from Andrew Horowitz MA sent at 08/16/2023 2:21 PM EDT ----- Remind pt. Time to recheck A1C. Andrew Ponce MA [facility]01-08-2025 Miscellaneous Notes* Telephone Encounter - Suzi Haynes MA - 02/16/2024 7:19 AM EST ----- Message from Andrew Horowitz MA sent at 08/16/2023 2:21 PM EDT ----- Remind pt. Time to recheck A1C. Andrew Ponce MA documented in this encounterRegional Medical Center12-31-2024 Telephone encounter Note * Telephone Encounter - Andrew Ponce MA - 02/08/2024 11:38 AM EST Patient requesting refills: Last office visit 12/27/2023. Last refill 08/10/2023 . Requested Prescriptions Pending Prescriptions Disp Refills FARXIGA 10 mg tablet Sig: Take 1 tablet by mouth daily with breakfast. Please review and advise. Andrew Ponce MA [facility]12[facility]31-2024 Miscellaneous Notes* Telephone Encounter - Andrew Ponce MA - 02/08/2024 11:38 AM EST Patient requesting refills: Last office visit 12/27/2023. Last refill 08/10/2023 . Requested Prescriptions Pending Prescriptions Disp Refills FARXIGA 10 mg tablet Sig: Take 1 tablet by mouth daily with breakfast. Please review and advise. Andrew Ponce MA documented in [facility] encounterReg[facility]12-12-2024 Telephone encounter Note * Telephone [...] Please review and advise. Andrew Ponce MA [facility] Miscellaneous Notes* Telephone Encounter - [...] advise. Andrew Ponce MA documented in this encounterRegional Medical Center12-11-2024 Telephone encounter Note * Telephone Encounter - Cristela Batres - 01/19/2024 12:04 PM EST Done [facility] Miscellaneous Notes* Telephone Encounter - [...] Vandana moved per her note below. Chanel Foremna LPN * Telephone Encounter - Vandana Edwards [...] todays apointment Radha Anand documented in this encounterRegional [facility] Center12-11-2024 Telephone encounter Note * Telephone Encounter - Emani Torres - 01/19/2024 10:27 AM EST Spoke with patient and rescheduled as directed. PSS - please print and mail an updated schedule to the patient. Emani Torres [facility]12-09-2024 Telephone encounter Note* Telephone Encounter - Chanel Foreman LPN - 01/17/2024 12:08 PM EST Has GI apt in [place]. Will need OV with Vandana moved per her note below. Chanel Foreman LPN [facility]12[facility] Telephone encounter Note* Telephone Encounter - Vandana Edwards - 01/17/2024 11:30 AM EST Pt needs GI workup, EDG and scope. Repeat CBC ordered. Unfortunately, I do not have any new information to further eval his anemia from our last OV. He does not need OV with us until after he meets with GI. [facility] Telephone encounter Note* Telephone Encounter - Chanel Foreman LPN - 01/17/2024 9:32 AM EST What labs would you like. Chanel Foreman LPN [facility]12-09-2024 Telephone encounter Note* Telephone Encounter - Cristela Batres - 01/17/2024 9:[address] LABS PATIENT COMING IN ON 01/20 [facility]12-06-2024 Telephone encounter Note* Telephone Encounter - Radha Anand - 01/14/2024 1:34 PM EST Lvm for patient to return the call. Patient missed todays apointment Radha Anand [facility]11-22-2024 Telephone encounter Note* Telephone Encounter - Sabra Desouza APRN.CRNA - 12/31/2023 4:43 PM EST Please cancel endo procedures at [facility] 01/07/24. Pt needs to be scheduled in the hospital setting dueto medical history (Cirrhosis). I called and spoke with him and gave him the scheduling phone number so he can reschedule himself. [facility] Work Phone: [phone] Miscellaneous Notes* Telephone Encounter - Sabra Desouza APRN.CRNA - 12/31/2023 4:43 PM EST Please cancel endo procedures at [facility] 01/07/24. Pt needs to be scheduled in the hospital setting dueto medical history (Cirrhosis). I called and spoke with him and gave him the scheduling phone number so he can reschedule himself. documented in this encounterRegional Medical Center11-18-2024 Instructions* Patient Instructions* Marianna Wagner APRN.CNP - 12/27/2023 2:37 PM EST Pneumococcal vaccine Shingrix Tdap RSV documented in this encounterRegional Medical Center11-18-2024 NoteHNO ID: [id number] Author: MARIANNA WAGNER APRN.CNP Service: ? Author [...] Got it through a diabetic clinic in [facility] has been refilling it for him [...] lbs. Was 165 lbs prior to the skilled nursing in June. Has frequent nausea and vomiting. Has a low appetite Unsure of what his last A1C was BS are either really high or low. Has a freestyle mango. Taking Lantus insulin. No meal time insulin. Taking Farxiga and Metformin (has been on that for awhile). Was supposed to follow with a package checker Hx of aortic valve replacement Had a congenital aortic aneurysm Has a pacemaker Has had heart attack He is not following with any specialists right now. States he either had a seizure or stroke and was placed in the hospital and then went to a skilled nursing for 5 weeks. 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 Started smoking [...] nonobstructive Chronic kidney disease, stage III (moderate) ([facility]) Clostridioides difficile infection Coronary artery disease Depression Diabetes mellitus, type II (HCC) Insulin dependent History of alcohol abuse Hx of ascending aorta repair Hyperlipidemia Hypertension Non-ST elevation CT (NSTEMI) (HCC) 06/24 Pacemaker Paroxysmal atrial fibrillation (HCC) RBBB (right bundle branch block) S/P aortic valve replacement [facility]. Wero mechanical Syncope Tachy-fernando syndrome (HCC) Tobacco abuse chronic Tobacco user Type 2 diabetes mellitus (HCC) PAST DARELL (more content not included)...[facility]11-18-2024 History of Present illness Narrative* Marianna Wagner, VIRIDIANA.PHYSICAL THERAPIST TECHNICIAN - 12/27/2023 2:19 PM EST CHIEF COMPLAINT: [...] with meals and snacks. He remains on Fceeefii34 mg BID. He is still taking his iron replacement. Using Freestyle Mango 3 (has it on his right forearm) Got it through a diabetic clinic in [facility] has been refilling it for him [...] lbs. Was 165 lbs prior to the skilled nursing in June. Has frequent nausea and vomiting. Has a low appetite Unsure of what his last A1C was BS are either really high or low. Has a freestyle mango. Taking Lantus insulin. No meal time insulin. Taking Farxiga and Metformin (has been on that for awhile). Was supposed to follow with a package checker Hx of aortic valve replacement Had a congenital aortic aneurysm Has a pacemaker Has had heart attack He is not following with any specialists right now. States he either had a seizure or stroke and was placed in the hospital and then went to a skilled nursing for 5 weeks. 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 Started smoking [...] nonobstructive Chronic kidney disease, stage III (moderate) ([facility]) Clostridioides difficile infection Coronary artery disease Depression Diabetes mellitus, type II (HCC) Insulin dependent History of alcohol abuse Hx of ascending aorta repair Hyperlipidemia Hypertension Non-ST elevation CT (NSTEMI) (HCC) 06/24 Pacemaker Paroxysmal atrial fibrillation (HCC) RBBB (right bundle branch block) S/P aortic valve replacement St. Wero mechanical Syncope Tachy-fernando syndrome (HCC) Tobacco abuse chronic Tobacco user Type 2 diabetes mellitus (HCC) PAST SURGICAL HISTORY Procedure Laterality Date ABD AORTIC ANEURYSM REPAIR ASCENDING AORTA GRAFT W/AORTIC ROOT COLONOSCOPY SCREENING In [place] CORONARY ARTERY BYPASS GRAFT HX 2016 2005 [...] Current Outpatient Medications Medication Sig Dispense Refill puokrl-ggareygc-gyhekyg (CREON 36) 36,000-114,000- 180,000 unit delayed release capsule Take 2 pills by mouth with first bite of meal and take 1 pill with snacks. Max 10 per day. 300 capsule 3 Insulin [place], Disposable, (BD ULTRA-FINE NORBERTO PEN NEEDLE) 32 [...] 2 Blood-Glucose Meter,Continuous (FREESTYLE MANGO 3 READER) [facility] Use to check blood [...] sooner should any other issues arise. - Feesheh MANGO 3 SENSOR DEVICE 3. Stage 3 [...] patient. Marianna Wagner APRN.CNP documented in this encounterRegional Medical Center11-15-2024 Instructions* Patient Instructions* Susana Ramirez [...] am on dialysis? A: Please consult your security sales manager prior to scheduling to get instructions pertinent to you. In general, dialysis patients take the BeMe Intimatesly bowel prep and have the procedure same [...] am on dialysis? A: Please consult your security sales manager prior to scheduling to get instructions pertinent [...] rest of the day. documented in this encounterRegional Medical Center11-15-2024 [facility]Grant [facility]11-[facility] History of Present illness Narrative* Susana [...] for internal providers or letter via the [employer] for external providers. HPI: Analilia [...] Abs Lymph 1.00 - 4.00 k/uL 1.82 [place]% % 11.0 Abs [place] <0.87 k/uL 0.51 [place]% % 0.0 Abs [...] ascending aorta repair Hyperlipidemia Hypertension Non-ST elevation CT (NSTEMI) (HCC) 06/24 Pacemaker Paroxysmal atrial fibrillation (HCC) RBBB (right bundle branch block) S/P aortic valve replacement St. Wero mechanical Syncope Tachy-fernando syndrome (HCC) Tobacco abuse chronic Tobacco user Type 2 diabetes mellitus (HCC) PAST SURGICAL HISTORY Procedure Laterality Date ABD AORTIC ANEURYSM REPAIR ASCENDING AORTA GRAFT W/AORTIC ROOT COLONOSCOPY SCREENING In [place] CORONARY ARTERY BYPASS GRAFT HX 2016 2005 HEART CATHETERIZATION 06/24/2016 HEART VALVE REPLACEMENT 2017 Aortic x2 ;2015 HERNIA REPAIR HX PACEMAKER 06/25/2016 REPLACEMENT AORTIC VALVE W BYPASS Allergies: ALLERGIES No Known Allergies Medications: Insulin [place], Disposable, (BD ULTRA-FINE NORBERTO PEN NEEDLE) 32 [...] daily. Blood-Glucose Meter,Continuous (FREESTYLE MANGO 3 READER) [facility] Use to check blood [...] meals and 1 pill with snacks - ifimte-mumarmio-swhghiu (CREON 36) 36,000-114,000- 180,000 unit delayed release [...] Follow up in office after rodrick Ramirez APRN.PHYSICAL THERAPIST TECHNICIAN December 24, 2023 11:28 AM documented in this encounterRegional Medical Center11-07-2024 Telephone encounter Note * Telephone Encounter - Suzi Haynes MA - 12/16/2023 5:04 PM EST Patient informed of results and to keep GI appointment on 12/24/23 at 11:20, reiterated the appointment and time to patient multiple times. Suzi Haynes MA [facility]11-[facility] Telephone encounter Note* Telephone Encounter - Suzi Haynes MA - 12/16/2023 5:04 PM EST ----- Message from Marianna Wagner APRN.PHYSICAL THERAPIST TECHNICIAN sent at 12/15/2023 6:32 PM EST ----- CT pancreas showed chronic calcified pancreatitis with multiple stones and dilation of the duct. There was no mass. He needs to make the appointment with GI on 12/23 [facility] Miscellaneous Notes* Telephone Encounter - Suzi Haynes MA - 12/16/2023 5:04 PM EST Patient informed of results and to keep GI appointment on 12/24/23 at 11:20, reiterated the appointment and time to patient multiple times. Suzi Haynes MA * Telephone Encounter - Suzi Haynes MA - 12/16/2023 5:04 PM EST ----- Message from Marianna Wagner APRN.PHYSICAL THERAPIST TECHNICIAN sent at 12/15/2023 6:32 PM EST ----- CT pancreas showed chronic calcified pancreatitis with multiple stones and dilation of the duct. There was no mass. He needs to make the appointment with GI on 12/23 documented in this encounterRegional Medical Center10-30-2024 Miscellaneous Notes* [facility] - [...] PATIENT PRESENTS WITH AN IMPLANTABLE OR ATTACHED ENERGY ADMINISTRATOR: No RADIOLOGY DEPARTMENT: CT; Exam(s) Completed: Pancreas PERIPHERAL IV DATA: Site assessment: Clean,Dry and Intact, Site disposition Discontinued SIGNED BY: KIRA Thomas December 08, 2023 10:57 AM documented in this encounterRegional Medical Center10-30-2024 Nurse Note* Sigrid Mata RN [...] DATE: December 08, 2023 TIME: 10:42 AM [facility] Note* Sigrid Mata RN [...] 2023 TIME: 10:42 AM documented in this encounterRegional Medical Center10-30-2024 Progress note* [facility] - Anny Durham CT - 12/08/2023 9:45 AM EDT Radiology Service Progress Note PATIENT NAME: Analilia Melnedrez DATE OF SERVICE: December 08, 2023 TIME: [...] PATIENT PRESENTS WITH AN IMPLANTABLE OR ATTACHED ENERGY ADMINISTRATOR: No RADIOLOGY DEPARTMENT: CT; Exam(s) Completed: Pancreas PERIPHERAL IV DATA: Site assessment: Clean,Dry and Intact, Site disposition Discontinued SIGNED BY: KIRA Thomas December 08, 2023 10:57 AM [facility] Telephone encounter Note* Telephone Encounter - Marianna Wagner APRN.CNP - 12/07/2023 1:00 PM EDT New order for CT pancreas was placed since last one was discontinued. [facility] Miscellaneous Notes* Telephone Encounter - Marianna Wagner APRN.CNP - 12/07/2023 1:00 PM EDT New order for CT pancreas was placed since last one was discontinued. documented in this encounterRegional Medical Center10-21-2024 Telephone encounter Note * Telephone Encounter - Marianna Wagner APRN.CNP - 11/29/2023 12:14 PM EDT Completed peer to peer for CT pancreas with IV contrast and obtained approval. # [id number] until 11/30/2023-12/31/2023 He is scheduled tomorrow for the CT. Spoke with Dr. Murillo with [facility] for reference. [facility] Miscellaneous Notes* Telephone Encounter - Marianna Wagner APRN.CNP - 11/29/2023 12:14 PM EDT Completed peer to peer for CT pancreas with IV contrast and obtained approval. # [id number] until 11/30/2023-12/31/2023 He is scheduled tomorrow for the CT. Spoke with Dr. Murillo with [facility] for reference. * Telephone Encounter - Twyla Espana - 11/25/2023 12:53 PM EDT Denial: CPT 52883-XD PANCREAS W IVCON Denial Type: Payer Clinical [...] Yes Peer to Peer Deadline: 11/30/2023 Insurance Case#[id number] Peer to Peer opt 2 (enter tracking#) / opt 1 Denial sent to providers email documented in this encounterRegional Medical Center10-18-2024 Telephone encounter Note * Telephone Encounter - Andrew Ponce MA - 11/26/2023 10:30 AM EDT Patient requesting refills: Last office visit 10/14/2023. Last refill . Requested Prescriptions Pending Prescriptions Disp Refills Insulin [place], Disposable, (BD ULTRA-FINE NORBERTO PEN NEEDLE) 32 gauge x 5/32 Sig: three times a day. Please review and advise. Andrew Ponce MA [facility] Miscellaneous Notes* Telephone Encounter - Andrew Ponce MA - 11/26/2023 10:30 AM EDT Patient requesting refills: Last office visit 10/14/2023. Last refill . Requested Prescriptions Pending Prescriptions Disp Refills Insulin [place], Disposable, (BD ULTRA-FINE NORBERTO PEN NEEDLE) 32 gauge x 5/32 Sig: three times a day. Please review and advise. Andrew Ponce MA documented in this encounterRegional Medical Center10-17-2024 Telephone encounter Note * Telephone Encounter - Twyla Espana - 11/25/2023 12:53 PM EDT Denial: CPT 42568-TY PANCREAS W IVCON Denial Type: Payer Clinical [...] Yes Peer to Peer Deadline: 11/30/2023 Insurance Case#[id number] Peer to Peer opt 2 (enter tracking#) / opt 1 Denial sent to providers email [facility] Telephone encounter Note* Telephone Encounter - Giulia Rogel MA - 11/16/2023 5:16 PM EDT Patient is informed Giulia Rogel MA [facility] Miscellaneous Notes* Telephone Encounter - [...] Patient left message stating he saw the low altitude air defense gunner yesterday and they are very worried about his stomach and wants him to be seen by GI sooner than 12/24/23. Patient states he has called and they cannot see him any sooner and wanted to know if there was anything Marianna could do. Please advise. Suzi Haynes MA documented in this encounterRegional Medical Center10-08-2024 Telephone encounter Note * Telephone Encounter - Mairanna Wagner APRN.CNP - 11/16/2023 4:49 PM EDT Please let the patient know that I contacted GI and there is nothing available until his appointment in December. He needs to make this appointment. [facility] Telephone encounter Note* Telephone Encounter - Carolina Benito - 11/16/2023 4:20 PM EDT Unfortunately, we do not have any openings sooner as of right now. I would suggest if he is needingto be seen urgently to contact central scheduling at if he is willing to go to any location for care. We did add him to the wait list. Carolina Benito [facility] Telephone encounter Note* Telephone Encounter - Marianna Wagner APRN.CNP - 11/16/2023 3:03 PM EDT I have already tried to get him a sooner appointment but then he missed that appointment. I will send the request to their office but there may not be anything available. [facility] Telephone encounter Note* Telephone Encounter - Suzi Haynes MA - 11/16/2023 2:32 PM EDT Patient left message stating he saw the low altitude air defense gunner yesterday and they are very worried about his stomach and wants him to be seen by GI sooner than 12/24/23. Patient states he has called and they cannot see him any sooner and wanted to know if there was anything Marianna could do. Please advise. Suzi Haynes MA [facility] History of Present illness [...] uses NSAIDs. Occasional reflux. He was in skilled nursing for 6 weeks in june for rehab [...] ascending aorta repair Hyperlipidemia Hypertension Non-ST elevation CT (NSTEMI) ([facility]) 06/24 Pacemaker Paroxysmal atrial fibrillation ([facility]) RBBB (right bundle branch block) S/P aortic valve replacement [facility]. Wero mechanical Syncope Tachy-fernando syndrome ([facility]) Tobacco abuse chronic Tobacco user Type 2 diabetes mellitus ([facility]) PAST SURGICAL HISTORY Procedure Laterality Date [...] 2 Blood-Glucose Meter,Continuous (FREESTYLE MANGO 3 READER) [facility] Use to check blood [...] 1 tablet by mouth once daily. Insulin [place], Disposable, (NORBERTO PEN NEEDLE) 32 gauge x [...] 5' 10 (1.78m) Wt 132 lb (59.9kg) SuF867% BMI 18.94 kg/(m^2). General: Age-appropriate well developed. [...] with labs in 8 weeks. Vandana Edwards APRN.PHYSICAL THERAPIST TECHNICIAN I spent a total of 45 minutes on the date of the service which included preparing to see the patient, [id number] patient care, completing clinical documentation, counseling and [...] evaluation of this patient. documented in this encounterRegional Medical Center10-01-2024 Telephone encounter Note * Telephone Encounter - Suzi Haynes MA - 11/09/2023 1:54 PM EDT Patient informed of results and additional imaging ordered. Suzi Haynes MA [facility] Miscellaneous Notes* Telephone Encounter - Suzi Haynes MA - 11/09/2023 1:54 PM EDT Patient informed of results and additional imaging ordered. Suzi Haynes MA * Telephone Encounter - Marianna Wagner APRN.CNP - 11/07/2023 7:[address] abd showed dilatation of the pancreatic duct possibly due to chronic pancreatitis.I placed an order for a CT for his pancreas. documented in this encounterRegional Medical Center09-30-2024 Telephone encounter Note * Telephone [...] Please review and advise. Suzi Haynes MA [facility] Miscellaneous Notes* Telephone Encounter - [...] advise. Suzi Haynes MA documented in this encounterRegional Medical Center09-29-2024 Telephone encounter Note * Telephone Encounter - Marianna Wagner APRN.CNP - 11/07/2023 7:[address] abd showed dilatation of the pancreatic duct possibly due to chronic pancreatitis.I placed an order for a CT for his pancreas. [facility]24 NoteHNO ID: [id number] Author: YESSICA UMANA LPN Service: ? Author Type: LICENSED NURSE Type: Progress Notes Filed: 11/05/2023 13:46 Note Text: ED Follow Up: Patient discharged from [facility] ED on 10/30/2023. 1. How are [...] you able to contact the office or all source collection manager provider prior to your ED visit? Left message for pt to call office. 5. Is there anything else I can do for you today? Left message for pt to call office.[facility]09-27-2024 History of Present illness Narrative* Yessica Umana LPN - 11/05/2023 1:44 PM EDT ED Follow Up: Patient discharged from [facility] ED on 10/30/2023. 1. How are [...] you able to contact the office or all source collection manager provider prior to your ED visit? Left message forpt to call office. 5. Is there anything else I can do for you today? Left message for pt to call office. documented in this encounterRegional Medical Center09-27-2024 NotePatient Outreach (AGINTMLW) ANALILIA MELENDREZ ([id number]) 1960 Date Time Provider Department 11/05/23 YESSICA UMANA AGINTMLW During your visit today, we recorded the following information about you: Yessica Umana LPN 11/05/2023 1:46 PM Signed ED Follow Up: Patient discharged from [facility] ED on 10/30/2023. 1. How are [...] you able to contact the office or all source collection manager provider prior to your ED visit? Left message for pt to call office. 5. Is there anything else I can do for you today? Left message for pt to call office. Allergies As of Date: 11/05/2023 (No Known Allergies) Date Reviewed: 10/14/2023 Reviewed by: Marianna Wagner APRN.PHYSICAL THERAPIST TECHNICIAN - Fully Assessed Prescriptions as of 11/05/2023 - metFORMIN (GLUCOPHAGE) 500 mg tablet Take 1 tablet by mouth daily with breakfast. - Cholecalciferol, Vitamin D3, (VITAMIN D-3) 50 mcg (2,000 unit) cap Take 1 capsule by mouth once daily. - ferrous sulfate 325 mg (65 mg iron) tablet Take 1 tablet by mouth once daily. - Blood-Glucose Meter,Continuous (FREESTYLE MANGO 3 READER) [facility] Use to check blood [...] tablet by mouth once daily. - Insulin [place], Disposable, (NORBERTO PEN NEEDLE) 32 gauge x [...] (HCC) [I71.9] 08/09/2023 Atherosclerotic heart disease of [place] coronar*01/03/2017 Chronic pancreatitis (HCC) [K86.1] 08/09/2023 Calcium [...] pacemaker [Z95.0] 08/09/2023 Histor (more content not included)...[facility]09-21-2024 Hospital Discharge instructions Patient Education 10/30/2023 [...] and smoking to help manage this disease. [id number] [employer]. [address] [place], [place] [address]. All rights reserved. This information is not [...] if directed by your healthcare provider. [employer]. [address] [place] [address]. All rights reserved. This information is not intended as a substitute for professional medical care. Always follow yourhealthcare professional's instructions. Follow Up Care 10/30/2023 15:12:07 With:VANESSA GROSS MD Address: [address] [facility], [place] [address]- [phone] When:3-5 days With:Go to emergency room if symptoms worsen Address:Unknown When:2-4 days With:MARIANNA WAGNERC Address: [address] [place] [phone] [phone] When:2-4 days [facility] 09-21-2024 Note Discharge Instructions Thank you for allowing [facility] to assist you with your healthcare needs. The following is importantdischarge information regarding your hospital visit. Diagnosis from Today's Visit Abdominal pain Lightheaded What to Do Next Instructions from Your Care Team No qualifying data available. Post Acute Orders No qualifying data available. You Need to Schedule the Following Appointments Follow Up with VANESSA GROSS MD When:Within 3-5 days Where:[address] [facility], [place] [address]- [phone] Follow Up with Go to emergency room if symptoms worsen When:Within 2-4 days Follow Up with MARIANNA WAGNER When:Within 2-4 days Where:[address] [place] [phone] [phone] Allergies NKA Medications Please ask your primary [...] and smoking to help manage this disease. [phone] [employer]. [address] [place] [address]. All rights reserved. This information is not [...] medicine if directed by your healthcare provider. [phone] [employer]. [address] [place] [address]. All rights reserved. This information is not intended as a substitute for professional medical care. Always follow yourhealthcare professional's instructions. Additional Information VACCINATE! IT SAVES LIVES! Members of the community who have not yet received the COVID-19 vaccine and would like to receive it can visit one of [facility] vaccine clinics. There are many vaccine clinic locations within the [facility]. For locations and available times, please visit [email or web address] It is important to note that some COVID mobile vaccine clinics are held outdoors and may be canceled in rainy or stormy conditions. To learn more about pediatric vaccinations (ages 5-11), we invite you to visit the [facility] webpage. [email or web address] learn more about the COVID-19 vaccine, we invite you to visit the CDC website for a list of frequently asked questions. https://www.cdc.gov/coronavirus/2019-ncov/vaccines/faq.html [facility] Access Instructions: Stay connected with your healthcare team and access your personal medical information anytime with the [facility]. If you would like a full copy of your medical records please contact the [facility] Medical Records Department Wednesday through Wednesday between 8a.m. and 4:30p.m. Please follow the directions below to access the portal: 1.Access the email account you provided upon registration to the [facility].2.Look for an invitation email from [facility].3.Open the email and access the invitation link: Accept Invitation to [employer]4.Fill in the required smith to create your account. Sign into [email or web address] with your username and password that you [...] you will allow to register on the [facility] [employer] Patient Portal for access to your information. You can also access the [employer] Patient Portal on the Datap[employer] logan. Simply click on Health Records under [...] Call your local pharmacy or go to http://bit.ly/6W1Uh8q to find one close to you.3.Make use of household items: Use cat litter or old coffee grounds to dispose medications if other options arenot available. Mix your drugs with these household products, seal them in an airtight container andthrow it into the garbage. Call [facility]: [phone] to be sure your drugs can be [...] aware that I should contact my doctor. Patient/Dentures Lab Technician Signature: Date/Time: Relationship to Patient: Witness Name/Signature: Date/Time: [facility]09-21-2024 Note ORIGINAL EXAMINATION: ONE XRAY VIEW [...] Sign Date: 10/30/2023 5:23:53 PM Ordering Provider: [facility]09-21-2024 Note ORIGINAL EXAMINATION: CT OF THE [...] Date: 10/30/2023 5:39:58 PM Ordering Provider: ANN-MARIE [facility]09-21-2024 Note ORIGINAL EXAMINATION: CT OF THE HEAD [...] Date: 10/30/2023 5:19:12 PM Ordering Provider: ANN-MARIE [facility]09-21-2024 Note Sinus rhythm Probable left atrial enlargement Right bundle branch block Electronic Signature: ANN-MARIE DILLON DO 10/30/2023 15:35:[address] [place] [address] 09-11-2024 Telephone encounter Note* Telephone Encounter - Emani Torres - 10/20/2023 8:39 AM EDT Spoke with patient and scheduled. Emani [facility]09-11-2024 Miscellaneous Notes* Telephone Encounter - [...] Insurance: [employer] Referred by: Marianna Wagner APRN.PHYSICAL THERAPIST TECHNICIAN Please review and advise documented in this encounterRegional [facility] Center09-10-2024 Telephone encounter Note * Telephone Encounter - Sabra Rios LPN - 10/19/2023 12:10 PM EDT First available with Vandana Rios LPN [facility]09-10-2024 Telephone encounter Note* Telephone Encounter - Gracie Tinsley - 10/19/2023 11:25 AM EDT Patient is being referred to Dr Sebastian. This patient is not appropriate to offer our virtual anemia clinic. DX: Anemia Insurance: [employer] Referred by: Marianna Wagner APRN.CNP Please review and advise [facility]09-09[facility] Telephone encounter Note* Telephone Encounter - uSzi Haynes MA - 10/18/2023 2:45 PM EDT Patient informed of all results, recommendations, appointment information and scripts sent in. Patient states he is going to have to move one of his appointments either the GI or the CT. Per conversation with Marianna Wagner PHYSICAL THERAPIST TECHNICIAN advised patient not to change GI appointment, left message for [facility] radiology to move patient's CT appointment. Suzi Haynes MA [facility]09-09-2024 Miscellaneous Notes* Telephone Encounter - Suzi Haynes MA - 10/18/2023 2:45 PM EDT Patient informed of all results, recommendations, appointment information and scripts sent in. Patient states he is going to have to move one of his appointments either the GI or the CT. Per conversation with Marianna Wagner CNP advised patient not to change GI appointment, left message for [facility] radiology to move patient's CT appointment. [...] to hematology. Referral to Dr. Sebastian in [place]. documented in this encounterRegional Medical Center09-08-2024 Telephone encounter Note * Telephone [...] to hematology. Referral to Dr. Sebastian in [place]. [facility]09-05-[facility] Instructions* Patient Instructions* Marianna Wagner APRN.CNP - 10/14/2023 11:17 AM EDT Schedule with GI Get labs done Start iron replacement- take with vitamin C (OJ) Check if you are taking vitamin D Make sure you are taking Protonix/pantoprazole [facility] [address] [facility] [place] [address] Appointment: [phone] Desk: [phone] What protein supplements can I buy at the grocery store? * Ensure Plus (13 grams of protein per bpttle) * Boost High Protein (15 grams of protein per bottle) * [place] Instant Breakfast packet with 8oz gkass of milk (13 grams of protein) Beneprotein (6 grams of protein 1 pkg.) can be mixed with 2-4 oz. of any liquid Harrold s Shakes (10 grams of protein per bottle) Milkshake Chugs (14 grams of protein per bottle) [facility] Farms Perfectly Protein (10 grams of protein per 8oz) Odwalsc Vanilla Protein Monster (33 grams of protein [...] friendly products please ask your dietitian. FYI: Sinhala yogurt has more protein than regular yogurt [place] is in organic section of your grocery stores Granite Quarry Instant Breakfast is in the breakfast cereal aisle Milkshake Chugs are in the milk aisle Odwalla Protein Monster is in the organic section of the grocery store Some suggestions to make protein supplements easier to drink: Drink protein supplements cold Drink in a cup with a lid, like a travel mug (no straw) to decrease the smell documented in this encounterRegional Medical Center09-05-2024 NoteHNO ID: [id number] Author: MARIANNA WAGNER APRN.STEPHANIE Service: ? Author [...] lbs. Was 165 lbs prior to the skilled nursing in June. Has frequent nausea and vomiting. Has a low appetite Unsure of what his last A1C was BS are either really high or low. Has a freestyle mango. Taking Lantus insulin. No meal time insulin. Taking Farxiga and Metformin (has been on that for awhile). Was supposed to follow with a package checker Hx of aortic valve replacement Had a congenital aortic aneurysm Has a pacemaker Has had heart attack He is not following with any specialists right now. States he either had a seizure or stroke and was placed in the hospital and then went to a skilled nursing for 5 weeks. 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 Started smoking [...] No date: Anxiety No date: Aortic aneurysm ([facility]) Comment: S/P Repair No date: Aortic aneurysm (HCC) No date: Aortic valve disorder Comment: S/P Replacement No date: CAD (coronary artery disease) Comment: nonobstructive No date: Coronary artery disease No date: Depression No date: Diabetes mellitus, type II ([facility]) Comment: Insulin dependent No date: Hx of ascending aorta repair No date: Hyperlipidemia No date: Hypertension No date: Non-ST elevation CT (NSTEMI) ([facility]) Comment: 06/24 No date: NSTEMI (non-ST elevated myocardial infarction) ([facility]) No date: Pacemaker No date: Pacemaker No date: Paroxysmal atrial fibrillation ([facility]) No date: RBBB (right bundle branch block) No date: S/P aortic valve replacement Comment: 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[facility]) No date: Tachy-fernando syndrome ([facility]) No date: Tobacco abuse Comment: chronic No date: Tobacco user No date: Type 2 diabetes mellitus ([facility]) PAST SURGICAL HISTORY No date: ABD [...] quit: 03/09/2016 Smokeless toba (more content not included)...[facility] 10-14-2023 History of Present illness Narrative* Marianna Wagner APRN.PHYSICAL THERAPIST TECHNICIAN - 10/14/2023 11:09 AM EDT CHIEF COMPLAINT: [...] lbs. Was 165 lbs prior to the skilled nursing in June. Has frequent nausea and vomiting. Has a low appetite Unsure of what his last A1C was BS are either really high or low. Has a freestyle mango. Taking Lantus insulin. No meal time insulin. Taking Farxiga and Metformin (has been on that for awhile). Was supposed to follow with a package checker Hx of aortic valve replacement Had a congenital aortic aneurysm Has a pacemaker Has had heart attack He is not following with any specialists right now. States he either had a seizure or stroke and was placed in the hospital and then went to a skilled nursing for 5 weeks. 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 Started smoking [...] No date: Anxiety No date: Aortic aneurysm ([facility]) Comment: S/P Repair No date: Aortic aneurysm ([facility]) No date: Aortic valve disorder Comment: S/P Replacement No date: CAD (coronary artery disease) Comment: nonobstructive No date: Coronary artery disease No date: Depression No date: Diabetes mellitus, type II ([facility]) Comment: Insulin dependent No date: Hx of ascending aorta repair No date: Hyperlipidemia No date: Hypertension No date: Non-ST elevation CT (NSTEMI) ([facility]) Comment: 06/24 No date: NSTEMI (non-ST elevated myocardial infarction) ([facility]) No date: Pacemaker No date: Pacemaker No date: Paroxysmal atrial fibrillation ([facility]) No date: RBBB (right bundle branch block) No date: S/P aortic valve replacement Comment: [facility] 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[facility]) No date: Tachy-fernando syndrome ([facility]) No date: Tobacco abuse Comment: chronic No date: Tobacco user No date: Type 2 diabetes mellitus ([facility]) PAST SURGICAL HISTORY No date: ABD [...] Refill Blood-Glucose Meter,Continuous (FREESTYLE MANGO 3 READER) [facility] to check blood sugar [...] 1 tablet by mouth once daily. Insulin [place], Disposable, (NORBERTO PEN NEEDLE) 32 gauge x [...] Monocytes % 09/25/2023 10.1 % Final Abs [place] 09/25/2023 0.48 <0.87 k/uL Final Eosinophils % [...] 99 74 - 99 mg/dL Final The [place] [employer] Association (ADA) provides guidance for cutoff [...] Standards of Medical Care in Diabetes 2016, [place] [employer]. Diabetes Care. 2016.39(Suppl 1). BUN [...] patient. Marianna Wagner APRN.CNP documented in this encounterRegional Medical Center08-29-2024 Telephone encounter Note * Telephone Encounter - Giulia Rogel MA - 10/07/2023 5:11 PM EDT Patient is informed and and reminder placed. He states he needs to drop off the specimen and he will call IWONA Rogel MA [facility]08-29-2024 Miscellaneous Notes* Telephone Encounter - [...] appointment with GI yet? documented in this encounterRegional Medical Center08-29-2024 Telephone encounter Note * Telephone Encounter - Marianna Wagner APRN.CNP - 10/07/2023 11:29 AM EDT Hgb has decreased showing anemia. I want to recheck her CMP and CBC again in 2 weeks. Has he completed the stool studies yet? Or make an appointment with GI yet? [facility] Telephone encounter Note* Telephone Encounter - Giulia Rogel MA - 09/24/2023 1:52 PM EDT Patient is informed but he gets rides through his insurance so he won't be able to sheepskin pickler the kit or get the blood work done for a while. He is going to try and go to [facility] to complete labs and stool study Giulia Rogel MA [facility]08-16-2024 Miscellaneous Notes* Telephone Encounter - Giulia Rogel MA - 09/24/2023 1:52 PM EDT Patient is informed but he gets rides through his insurance so he won't be able to sheepskin pickler the kit or get the blood work done for a while. He is going to try and go to [facility] to complete labs and stool study [...] too. I also placed some lab orders. [facility] [address] [place] [address] Appointment: [phone] Desk: [phone] * Telephone Encounter - Suzi Haynes MA [...] the restroom. States he was in a skilled nursing 6 weeks ago because of a seizure and the doctor in the skilled nursing had him on Tramadol for his stomach [...] advise. Suzi Haynes MA documented in this encounterRegional Medical Center08-16-2024 Telephone encounter Note * Telephone [...] too. I also placed some lab orders. [facility] [address] [place] [address] Appointment: [phone] Desk: [phone] [facility] Telephone encounter Note* Telephone Encounter [...] the restroom. States he was in a skilled nursing 6 weeks ago because of a seizure and the doctor in the skilled nursing had him on Tramadol for his stomach [...] in anyway. Please advise. Suzi Haynes MA [facility]08-07-2024 NoteHNO ID: [id number] Author: RADHA ETIENNE RN Service: ? Author Type: Registered Nurse Type: Progress Notes Filed: 09/15/2023 14:15 Note Text: PRIMARY CARE COORDINATION QUICK NOTE Patient identified by name and date . PCC called to discuss Care Coordination services. Pt is not interested. Radha Etienne [facility]08-07-2024 History of Present illness Narrative* Radha Etienne RN - 09/15/2023 2:10 PM EDT PRIMARY CARE COORDINATION QUICK NOTE Patient identified by name and date . PCC called to discuss Care Coordination services. Pt is not interested. Radha Etienne RN documented in this encounterRegional Medical Center08-07-2024 NotePatient Outreach (AGACM) ANALILIA MELENDREZ ([id number]) 1960 M Date Time Provider Department 09/15/23 RADHA ETIENNE [facility] During your visit today, we recorded the following information about you: Radha Etienne RN 09/15/2023 2:15 PM Signed PRIMARY CARE COORDINATION QUICK NOTE Patient identified by name and date . PCC called to discuss Care Coordination services. Pt is not interested. Radha Etienne RN Allergies As of Date: 09/15/2023 (No Known Allergies) Date Reviewed: 08/09/2023 Reviewed by: Marianna Wagner APRN.PHYSICAL THERAPIST TECHNICIAN - Fully Assessed Reason for Visit: Private Duty Nurse Chronic Care [3612] Cmt: Care Coordination Prescriptions as of 09/15/2023 - Blood-Glucose Meter,Continuous (FREESTYLE MANGO 3 READER) [facility] Use to check blood [...] tablet by mouth once daily. - Insulin [place], Disposable, (NORBERTO PEN NEEDLE) 32 gauge x [...] (HCC) [I71.9] 08/09/2023 Atherosclerotic heart disease of [place] coronar*01/03/2017 Chronic pancreatitis (HCC) [K86.1] 08/09/2023 Calcium [...] unspecified, uncomplicated*01/03/2017 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] 05/20/2023 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 (HCC) [Z79.4]01/03/2017 Pansystolic murmur [R01.1] 08/09/2023 Unspecified severe protein-calorie malnutrition*05/20/2023 Encounter Status:Closed by RADHA ETIENNE on 09/15/23[facility]08-05-2024 Telephone encounter Note* Telephone Encounter - Yessica Umana LPN - 09/13/2023 11:20 AM EDT Left message for pt to call office. Yessica Umana LPN [facility]08-[facility] Miscellaneous Notes* Telephone Encounter - [...] was having blood diarrhea. documented in this encounterRegional Medical Center08-05-2024 Telephone encounter Note * Telephone Encounter - Marianna Wagner APRN.CNP - 09/13/2023 8:16 AM EDT Please call patient to check on him since he did not go to an ER that I can see. He had called nurse rhys stating he was having blood diarrhea. [facility]08-02-[facility] Telephone encounter Note* Telephone Encounter [...] stand, low BP, rapid pulse) Protocols used: [id number] [facility]08-02-2024 Miscellaneous Notes* Telephone Encounter - [...] stand, low BP, rapid pulse) Protocols used: [id number] documented in this encounterRegional Medical Center08-02-2024 NoteHNO ID: [id number] Author: RADHA ETIENNE RN Service: ? Author Type: Registered Nurse Type: Progress Notes Filed: 09/10/2023 10:55 Note Text: PRIMARY CARE COORDINATION QUICK NOTE Patient identified by name and date . PCC called to introduce Care Coordination services. Pt prefers a call back another day, as he is just not feeling good today. Radha Etienne, [facility]08-02-2024 History of Present illness Narrative* Radha Etienne RN - 09/10/2023 10:49 AM EDT PRIMARY CARE COORDINATION QUICK NOTE Patient identified by name and date . PCC called to introduce Care Coordination services. Pt prefers a call back another day, as he is just not feeling good today. Radha Etienne RN documented in this encounterRegional Medical Center08-02-2024 NotePatient Outreach (AGACM) ANALILIA MELENDREZ ([id number]) 1960 M Date Time Provider Department 09/10/23 [facility] During your visit today, we [...] Date Reviewed: 08/09/2023 Reviewed by: Marianna Wagner APRN.PHYSICAL THERAPIST TECHNICIAN - Fully Assessed Reason for Visit: Private Duty Nurse- Other [0892] Cmt: Care Coordination Prescriptions as of 09/10/2023 - Blood-Glucose Meter,Continuous (FREESTYLE MANGO 3 READER) [facility] Use to check blood [...] tablet by mouth once daily. - Insulin [place], Disposable, (NORBERTO PEN NEEDLE) 32 gauge x [...] (HCC) [I71.9] 08/09/2023 Atherosclerotic heart disease of [place] coron[place]*01/03/2017 Chronic pancreatitis (HCC) [K86.1] 08/09/2023 Calcium [...] unspecified, uncomplicated*01/03/2017 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] 05/20/2023 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 (HCC) [Z79.4]01/03/2017 Pansystolic murmur [R01.1] 08/09/2023 Unspecified severe protein-calorie malnutrition*05/20/2023 Encounter Status:Closed by RADHA ETIENNE on 09/10/23[facility]07-16-2024 NoteHNO ID: [id number] Author: RADHA ETIENNE RN Service: ? Author Type: Registered Nurse Type: Progress Notes Filed: 08/24/2023 13:57 Note Text: PRIMARY CARE COORDINATION QUICK NOTE Patient identified by name and date . PCC called to introduce care coordination services. Pt isn't home right now. Radha Etienne [facility]07-16-2024 History of Present illness Narrative* Radha Etienne RN - 08/24/2023 1:52 PM EDT PRIMARY CARE COORDINATION QUICK NOTE Patient identified by name and date . PCC called to introduce care coordination services. Pt isn't home right now. Radha Etienne RN documented in this encounterRegional Medical Center07-16-2024 NotePatient Outreach (AGACM) ANALILIA MELENDREZ ([id number]) 1960 M Date Time Provider Department 08/24/23 RADHA ETIENNE [facility] During your visit today, we recorded the following information about you: Radha Etienne RN 08/24/2023 1:57 PM Signed PRIMARY CARE COORDINATION QUICK NOTE Patient identified by name and date . PCC called to introduce care coordination services. Pt isn't home right now. Radha Etienne RN Allergies As of Date: 08/24/2023 (No Known Allergies) Date Reviewed: 08/09/2023 Reviewed by: Marianna Wagner APRN.PHYSICAL THERAPIST TECHNICIAN - Fully Assessed Reason for Visit: Private Duty Nurse- Other [9714] Cmt: Care Coordination Prescriptions as of 08/24/2023 [...] tablet by mouth once daily. - Insulin [place], Disposable, (NORBERTO PEN NEEDLE) 32 gauge x [...] (HCC) [I71.9] 08/09/2023 Atherosclerotic heart disease of [place] coron[place]*01/03/2017 Chronic pancreatitis (HCC) [K86.1] 08/09/2023 Calcium [...] unspecified, uncomplicated*01/03/2017 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] 05/20/2023 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 (HCC) [Z79.4]01/03/2017 Pansystolic murmur [R01.1] 08/09/2023 Unspecified severe protein-calorie malnutrition*05/20/2023 Encounter Status:Closed by RADHA ETIENNE on 08/24/23[facility]07-12-2024 Telephone encounter Note* Telephone Encounter - Giulia Rogel MA - 08/20/2023 10:44 AM EDT Patient called he would like an order for raysa Rogel MA [facility]07-12-2024 Miscellaneous Notes* Telephone Encounter - Giulia Rogel MA - 08/20/2023 10:44 AM EDT Patient called he would like an order for raysa Rogel MA documented in this encounterRegional Medical Center07-08-2024 Telephone encounter Note * Telephone Encounter - Andrew Ponce MA - 08/16/2023 2:21 PM EDT Pt. Notified. Reminder placed. Andrew Ponce MA [facility]07-08-2024 Telephone encounter Note* Telephone Encounter - Andrew Ponce MA - 08/16/2023 2:21 PM EDT ----- Message from Marianna Wagner APRN.PHYSICAL THERAPIST TECHNICIAN sent at 08/16/2023 2:14 PM EDT ----- A1C has improved to 6.8 which is considered controlled. Continue current medications. Recheck in 6 months. [facility] Miscellaneous Notes* Telephone Encounter - Andrew Ponce MA - 08/16/2023 2:21 PM EDT Pt. Notified. Reminder placed. Andrew Ponce MA * Telephone Encounter - Andrew Ponce MA - 08/16/2023 2:21 PM EDT ----- Message from Marianna Wagner APRN.PHYSICAL THERAPIST TECHNICIAN sent at 08/16/2023 2:14 PM EDT ----- A1C has improved to 6.8 which is considered controlled. Continue current medications. Recheck in 6 months. documented in this encounterRegional Medical Center07-05-2024 Telephone encounter Note * Telephone Encounter - Suzi Haynes MA - 08/13/2023 9:27 AM EDT Patient informed of results, recommendations and scripts sent in. Patient states he [facility] not use [facility] he uses [facility] in [place] and would like scripts resent. Also patient states he does not take any supplements with vitamin B12. Please advise. Suzi Haynes MA [facility]07-05-2024 Miscellaneous Notes* Telephone Encounter - [...] not with Lisinopril. Will forward this to overnight caregiver since he is a complicated case. documented in this encounterRegional Medical Center07-03-2024 Telephone encounter Note * Telephone [...] not with Lisinopril. Will forward this to overnight caregiver since he is a complicated case. [facility]07-01-20[facility] Instructions* Patient Instructions* Marianna Wagner APRN.CNP - 08/09/2023 1:37 PM EDT [facility] [address] [facility] [place] [address] Appointment: [phone] Desk: [phone] documented in this encounterRegional Medical Center07-01-2024 NoteHNO ID: [id number] Author: MARIANNA WAGNER APRN.CNP Service: ? Author Type: Nurse Practitioner Type: Progress Notes Filed: 08/13/2023 12:57 Note Text: [facility] Marianna Gomezdevyn SCREEN REPAIRER CRUSHER-PHYSICAL THERAPIST TECHNICIAN [address] [place] [address] Dept Dept. Visit Date: August 09, 2023 Mr.Steven Melendrez Date of : 1960 MRN/E #: [id number] Chief Complaint: Patient presents with: Establish Care: Previous pt. Of dr. Young at [facility]. Think he may have a seizure or stoke. Went to skilled nursing for 5 week. ([facility]) Diarrhea: X 2 months. BM [...] lbs. Was 165 lbs prior to the skilled nursing in June. Has frequent nausea and vomiting. Has a low appetite Unsure of what his last A1C was BS are either really high or low. Has a freestyle mango. Taking Lantus insulin. No meal time insulin. Taking Farxiga and Metformin (has been on that for awhile). Was supposed to follow with a package checker Hx of aortic valve replacement Had a congenital aortic aneurysm Has a pacemaker Has had heart attack He is not following with any specialists right now. States he either had a seizure or stroke and was placed in the hospital and then went to a skilled nursing for 5 weeks. 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 Started smoking [...] artery disease Depression Diabetes mellitus, type II ([facility]) Insulin dependent Hx of ascending aorta repair Hyperlipidemia Hypertension Non-ST elevation CT (NSTEMI) ([facility]) 06/24 NSTEMI (non-ST elevated myocardial infarction) ([facility]) Pacemaker Pacemaker Paroxysmal atrial fibrillation ([facility]) RBBB (right bundle branch block) S/P aortic valve replacement [facility] [place] mechanical Syncope Tachy-fernando syndrome ([facility]) Tachy-fernando syndrome ([facility]) Tobacco abuse chronic Tobacco user Type 2 diabetes mellitus ([facility]) PAST SURGICAL HISTORY Procedure Laterality Date [...] capsule 10 mg. jiménez (more content not included)...[facility]07-01-2024 History of Present illness Narrative* Marianna Wagner APRN.PHYSICAL THERAPIST TECHNICIAN - 08/09/2023 1:13 PM EDT Images from the original note were not included. [facility] Marianna Wagner SCREEN REPAIRER CRUSHER-PHYSICAL THERAPIST TECHNICIAN [address] [place] [address] Dept Dept. Visit Date: August 09, 2023 Mr.Steven Melendrez Date of : 1960 MRN/E #: [id number] Chief Complaint: Patient presents with: Establish Care: Previous pt. Of dr. Young at [facility]. Think he may have a seizure or stoke. Went to skilled nursing for 5 week. ([facility]) Diarrhea: X 2 months. BM [...] lbs. Was 165 lbs prior to the skilled nursing in June. Has frequent nausea and vomiting. Has a low appetite Unsure of what his last A1C was BS are either really high or low. Has a freestyle mango. Taking Lantus insulin. No meal time insulin. Taking Farxiga and Metformin (has been on that for awhile). Was supposed to follow with a package checker Hx of aortic valve replacement Had a congenital aortic aneurysm Has a pacemaker Has had heart attack He is not following with any specialists right now. States he either had a seizure or stroke and was placed in the hospital and then went to a skilled nursing for 5 weeks. 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 Started smoking [...] MEDICAL HISTORY Diagnosis Date Anxiety Aortic aneurysm ([facility]) S/P Repair Aortic aneurysm ([facility]) Aortic valve disorder S/P Replacement CAD (coronary artery disease) nonobstructive Coronary artery disease Depression Diabetes mellitus, type II ([facility]) Insulin dependent Hx of ascending aorta repair Hyperlipidemia Hypertension Non-ST elevation CT (NSTEMI) ([facility]) 06/24 NSTEMI (non-ST elevated myocardial infarction) ([facility]) Pacemaker Pacemaker Paroxysmal atrial fibrillation ([facility]) RBBB (right bundle branch block) S/P aortic valve replacement [facility]. 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 Insulin [place], Disposable, (NORBERTO PEN NEEDLE) 32 gauge x [...] (around 11/09/2023) for DM follow-up. Marianna Wagner APRN.PHYSICAL THERAPIST TECHNICIAN, signed on August 09, 2023 1:13 PM [facility] Discharge summary Author Refugio Rojas [facility] May 20, 2023 9:40am Note Date/Time May 20, 2023 9:3 0am [facility] Medical Records Department [address] [place] [address] Transfer to [facility] MR#: [id number] Acct: [id number] Name: ANALILIA MELENDREZ Rep #:[id number] : 1960 62 From: Refugio Rod PCP: ALAN Chahal tus:ADM IN Certification of patient admission REQUIRED AT TIME OF ADMISSION. I CERTIFY THAT POST-HOSPITAL ECF SERVICES ARE REQUIRED TO BE GIVEN ON AN IN-PATIENT BASIS BECAUSE OF THE ABOVE NAMED PATIENT'S NEED FOR INTERMEDIATE CARE ON A CONTINUING BASIS FOR THE [...] start patient on norepinephrine. Consult placed to repeater operator 05/16: Sepsis has resolved. 2. Chronic alcohol [...] furosemide 40 mg IV daily yesterday by security sales manager. BMP from today pending. 4. Mild hyponatremia [...] - Requested for PT OT eval and public health social worker to assist with discharge planning [...] Refugio Rojas Primary Care Provider: Andreas Pathak ORDER FULFILLMENT SPECIALIST Consulting Providers: Conrado Pro; Myaa Melo; Conrado Morel Discharge Orders/Prescriptions Prescriptions: New [...] in before D/C Order can be placed): Detention Facility 05/20/23939 <Electronically signed by Refugio Rojas MD> Cosigner Signature (if applicable): CC: ALAN Pathak; Dr. Conrado Morel MD; Dr. Conrado Pro DO; Dr. Maya Melo MD ~ [facility] Work Phone: 1(446) 265-277704-11-2024 Discharge summary Author Refugio Rojas [facility] May 20, 2023 12:37pm Note Date/Time May 20, 2023 12: 37pm [facility] Medical Records Department [address] [place] [address] Discharge Summary 05/20/23939 MR#: [id number] Acct: [id number] Name: ANALILIA MELENDREZ Rep #:[id number] : 1960 62 From: Refugio Rod PCP: ALAN Chahal [facility] tus:ADM [facility] Providers Date of Admission: 05/09/23 Date of Discharge: 05/20/23 Primary Care Physician: ALAN Chahal Consultations 05/10/23 09:57 Consult: Investment Sales Assistant / Pulmonary Medicine Routine Consulting Provider: Intensivists/Pulmonary Med Reason for Consult: sepsis EMERGENT Consult: No Notified: Yes Date Notified: 05/10/23 Time Notified: 09:57 Method of Notification: Text 05/13/23 08:44 Consult: Nephrology Routine Consulting Provider: Maya Melo Reason for Consult: MALIK EMERGENT Consult: No Notified: Yes Date Notified: 05/13/23 Time Notified: 08:44 Method of Notification: Text Comments:: Notified ORDER FULFILLMENT SPECIALIST Reason For Visit: ACUTE CYSTITIS, WITHOUT HEMATURIA [...] start patient on norepinephrine. Consult placed to repeater operator 05/16: Sepsis has resolved. 2. Chronic alcohol [...] furosemide 40 mg IV daily yesterday by security sales manager. BMP from today pending. 05/18: On diuretic. Follow-up with security sales manager in 2 weeks 4. Mild hyponatremia ? [...] - Requested for PT OT eval and public health social worker to assist with discharge planning [...] 82.4 H, Lymph % (Auto) 9.8 L, [place] % (Auto) 5.6, Eos % (Auto) 0.7, [...] Refugio Rojas Primary Care Provider: Andreas Pathak ORDER FULFILLMENT SPECIALIST Consulting Providers: Conrado Pro; Maya Melo; Conrado [...] in before D/C Order can be placed): Detention Facility Charges/Coding Visit Charges Inpatient E&M: 96563 Disch Hosp >30min 05/20/23 1237 <Electronically signed by Refugio Rojas MD> Cosigner Signature (if applicable): CC: ALAN Pathak; Dr. Refugio Rojas MD~ Signed [facility] Work Phone: 1(176) 868-379104-10-2024 Progress note Author Refugio Rojas [facility] May 19, 2023 2:23pm Note Date/Time May 19, 2023 7:3 7am [facility] Medical Records Department [address] [place] [address] Progress Note - Hospitalist 05/19/23 0724 MR#: [id number] Acct: [id number] Name: ANALILIA MELENDREZ Rep #:[id number] : 1960 62 From: Refugio Rod PCP: ALAN Chahal Sta tus:ADM IN Location: [place] [address] Reason for Visit Reason for Visit: Diagnoses [...] 85.7 H, Lymph % (Auto) 7.7 L, [place] % (Auto) 4.5, Eos % (Auto) 0.6, [...] start patient on norepinephrine. Consult placed to repeater operator 05/16: Sepsis has resolved. 2. Chronic alcohol [...] furosemide 40 mg IV daily yesterday by security sales manager. BMP from today pending. 4. Mild hyponatremia [...] - Requested for PT OT eval and public health social worker to assist with discharge planning [...] x 1 Charges/Coding Visit Charges Inpatient E&M: 10771 Subs Hosp L2 05/19/23 1427 <Electronically signed by Refugio Rojas MD> Cosigner Signature (if applicable): CC: ~ Signed [facility] Work Phone: 1(258) 423-235804-09-2024 Progress note Author Maya Melo [facility] May 18, 2023 7:25pm Note Date/Time May 18, 2023 7:25 pm [facility] Medical Records Department [address] [place] [address] Progress Note - Nephrology 05/18/231922 MR#: [id number] Acct: [id number] Name: ANALILIA MELENDREZ Rep #:[id number] : 1960 62 From: Maya rivers MD PCP: Andreas Pathak, ORDER FULFILLMENT SPECIALIST-C Lizzy tus:ADM IN Location: [place] [address] Subjective Subjective No new complaints. Good urine [...] (Auto) 85.0 H, Lymph% (Auto) 7.8 L, [place] % (Auto) 4.4, Eos % (Auto) 0.6, [...] Cosigner Signature (if applicable): CC: ~ Signed [facility] Work Phone: 1(170) 449-377404-09-2024 Progress note Author Maya Melo [facility] May 18, 2023 10:28am Note Date/Time May 17, 2023 10:0 7am [facility] Medical Records Department [address] [place] [address] Progress Note - Nephrology 05/17/23 0959 MR#: [id number] Acct: [id number] Name: ANALILIA MELENDREZ Rep #:[id number] : 1960 62 From: Estefany MAY PCP: ALAN Chahal Sta tus:ADM IN Location: [place] [address] Subjective Subjective Following for MALIK Patient resting [...] 83.3 H, Lymph % (Auto) 8.6 L, [place] % (Auto) 4.6, Eos % (Auto) 1.1, [...] by Maya Melo MD> CC: ~ Signed [facility] Work Phone: 1(370) 894-188904-09-2024 Progress note Author Refugio Rojas [facility] May 18, 2023 8:36am Note Date/Time May 18, 2023 8:31 am [facility] Medical Records Department [address] [place] [address] Progress Note - Hospitalist 05/18/23 0828 MR#: [id number] Acct: [id number] Name: ANALILIA MELENDREZ Rep #:[id number] : 1960 62 From: Refugio Rod PCP: ALAN Chahal Sta tus:ADM IN Location: [place] [address] Reason for Visit Reason for Visit: Diagnoses [...] (Auto) 85.0 H, Lymph% (Auto) 7.8 L, [place] % (Auto) 4.4, Eos % (Auto) 0.6, [...] start patient on norepinephrine. Consult placed to repeater operator 05/16: Sepsis has resolved. 2. Chronic alcohol [...] furosemide 40 mg IV daily yesterday by security sales manager. BMP from today pending. 4. Mild hyponatremia [...] - Requested for PT OT eval and public health social worker to assist with discharge planning 18. Anasarca ? Suspected to be secondary to hypoalbuminemia given patient chronic liver disease. Patient did receive IV Lasix 80 mg x 1 Charges/Coding Visit Charges Inpatient E&M: 82315 Subs Hosp L2 05/18/23 08 <Electronically signed by Refugio Rojas MD> Cosigner Signature (if applicable): CC: ~ Signed ADDENDUM by Dr. Refugio Rojas MD on 05/18/23 at 0835 Addendum Patient has been in antibiotic since admission 05/09/2023. Initially on ceftriaxone but was changed to Zosyn when transferred to ICU from [facility]. Zosyn then changed to cefdinir. [...] Cosigner Signature (if applicable): cc: ~* Signed [facility] Work Phone: 1(612) 651-984004-08-2024 Progress note Author Refugio Rojas [facility] May 17, 2023 9:21am Note Date/Time May 17, 2023 7:50 am [facility] Medical Records Department [address] [place] [address] Progress Note - Hospitalist 05/17/2345 MR#: [id number] Acct: [id number] Name: ANALILIA MELENDREZ Rep #:[id number] : 1960 62 From: Refugio Rod PCP: ALAN Chahal Sta tus:ADM IN Location: [place] [address]- 1 Reason for Visit Reason for Visit: [...] (Auto) 82.3 H, Lymph %(Auto) 8.7 L, [place] % (Auto) 5.5, Eos % (Auto) 1.2, [...] 83.3 H, Lymph % (Auto) 8.6 L, [place] % (Auto) 4.6, Eos % (Auto) 1.1, [...] start patient on norepinephrine. Consult placed to repeater operator 05/16: Sepsis has resolved. 2. Chronic alcohol [...] - Requested for PT OT eval and public health social worker to assist with discharge planning 18. Anasarca ? Suspected to be secondary to hypoalbuminemia given patient chronic liver disease. Patient did receive IV Lasix 80 mg x 1 Charges/Coding Visit Charges Inpatient E&M: 03783 Subs Hosp L2 05/17/23918 <Electronically signed by [...] Cosigner Signature (if applicable): cc: ~* Signed [facility] Work Phone: 1(877) 192-137704-07-2024 Progress note Author Conrado Morel [facility] May 16, 2023 9:45am Note Date/Time May 16, 2023 8:05 am [facility] Medical Records Department [address] [place] [address] Progress Note - Hospitalist 05/16/23804 MR#: [id number] Acct: [id number] Name: ANALILIA MELENDREZ Rep #:[id number] : 1960 62 From: Conrado Morel MD PCP: ALAN Chahal tus:ADM IN Location: [place] [address] Reason for Visit Reason for Visit: Diagnoses [...] start patient on norepinephrine. Consult placed to repeater operator ? 05/11/2023; patient remains in ICU did [...] - Requested for PT OT eval and public health social worker to assist with discharge planning [...] 35 Minutes Charges/Coding Visit Charges Inpatient E&M: 02189 Subs Hosp L2 05/16/23 0945 <Electronically signed by Conrado Morel MD> Cosigner Signature (if applicable): CC: ~ Signed [facility] Work Phone: 1(878) 102-536604-06-2024 Progress note Author Earnest Hamlin tr [facility] May 15, 2023 6:15pm Note Date/Time May 15, 2023 5:43 pm [facility] Medical Records Department [address] [place] [address] Progress Note - Nephrology 05/15/23 7594 MR#: [id number] Acct: [id number] Name: ANALILIA MELENDREZ Rep #:[id number] : 1960 62 From: Earnest ortiz MD PCP: ALAN Chahal tus:ADM IN Location: [place] [address] Subjective Subjective Following for acute kidney injury. [...] 76.8 H, Lymph % (Auto) 10.6 L, [place] % (Auto) 8.5, Eos % (Auto) 1.7, [...] Cosigner Signature (if applicable): CC: ~ Signed [facility] Work Phone: 1(420) 412-648904-06-2024 Progress note Author Conrado Morel [facility] May 15, 2023 8:55am Note Date/Time May 15, 2023 8:15 am [facility] Medical Records Department [address] [place] [address] Progress Note - Hospitalist 05/15/23 0814 MR#: [id number] Acct: [id number] Name: ANALILIA MELENDREZ Rep #:[id number] : 1960 62 From: Conrado Morel MD PCP: ALAN Chahal tus:ADM IN Location: [place] [address] Reason for Visit Reason for Visit: Diagnoses [...] 76.8 H, Lymph % (Auto) 10.6 L, [place] % (Auto) 8.5, Eos % (Auto) 1.7, [...] start patient on norepinephrine. Consult placed to repeater operator ? 05/11/2023; patient remains in ICU did [...] - Requested for PT OT eval and public health social worker to assist with discharge planning Time spent in the patient's overall evaluation,decision-making process, review of diagnostic data, adjustment of management, discussion with other providers, nursing nursing and ancillary staff involved in patient's care documentation, 35 Minutes Charges/Coding Visit Charges Inpatient E&M: 08768 Subs Hosp L2 05/15/23 0855 <Electronically signed by Conrado Morel MD> Cosigner Signature (if applicable): CC: ~ Signed [facility] Work Phone: 1(778) 969-317204-05-2024 Progress note Author Milagros Bess [facility] May 14, 2023 11:00am Note Date/Time May 14, 2023 11:0 0am [facility] Medical Records Department [address] [place] [address] Progress Note - Nephrology 05/14/23 1056 MR#: [id number] Acct: [id number] Name: ANALILIA MELENDREZ Rep #:[id number] : 1960 62 From: Milagros bourne MD PCP: ALAN Chahal tus:ADM IN Location: [place] [address] Subjective Subjective Follow-up on acute kidney injury. [...] (Auto) 75.4 H, Lymph %(Auto) 10.3 L, [place] % (Auto) 9.5, Eos % (Auto) 1.4, [...] Cosigner Signature (if applicable): CC: ~ Signed [facility] Work Phone: 1(708) 738-624504-05-2024 Consult note Author Milagros Bess [facility] May 14, 2023 10:47am Note Date/Time May 13, 2023 1:09 pm [facility] Medical Records Department [address] [place] [address] [place] [address] Consultation - Nephrology 05/13/23 1254 MR#: [id number] Acct: [id number] Name: ANALILIA MELENDREZ Rep #:[id number] : 1960 62 From: Estefany MAY PCP: ALAN Chahal tus:ADM IN Location: [place] [address] Assessment & Plan Assessment/Plan (1) MALIK (acute kidney injury): (2) Sepsis: (3) Chronic alcohol abuse: PLAN: Plan This is a 62-year-old male with past medical history significant for hypertension, hyperlipidemia, diabetes mellitus type 2, diabetic neuropathy, history of coronary artery disease status post CT, history of mechanical aortic valve replacement converted [...] time there is no acute indication for TRIAGE LICENSED PRACTICAL NURSE. Renal ultrasound did not show any evidence [...] history of coronary artery disease status post CT, history of mechanical aortic valve replacement converted [...] his creatinine is up to 2.85 mg/dL. [facility] AAA (abdominal aortic aneurysm) [...] (Auto) 79.2 H, Lymph %(Auto) 7.4 L, [place] % (Auto) 9.6, Eos % (Auto) 2.0, [...] <Electronically signed by Milagros Bess MD> CC: ORDER FULFILLMENT SPECIALISTAstrid Pathak; Dr. Conrado Pro DO; Dr. Maya Melo MD~ Signed [facility] Work Phone: 1(177) 854-467004-05-2024 Progress note Author Conrado Morel [facility] May 14, 2023 9:55am Note Date/Time May 14, 2023 7:34 am [facility] Medical Records Department [address] [place] [address] Progress Note - Hospitalist 05/14/23 0734 MR#: [id number] Acct: [id number] Name: ANALILIA MELENDREZ Rep #:[id number] : 1960 62 From: Conrado Morel MD PCP: ALAN Chahal Sta tus:ADM IN Location: [place] [address] Reason for Visit Reason for Visit: Diagnoses [...] start patient on norepinephrine. Consult placed to repeater operator ? 05/11/2023; patient remains in ICU did [...] - Requested for PT OT eval and public health social worker to assist with discharge planning Time spent in the patient's overall evaluation,decision-making process, review of diagnostic data, adjustment of management, discussion with other providers, nursing nursing and ancillary staff involved in patient's care documentation, 35 Minutes Charges/Coding Visit Charges Inpatient E&M: 55980 Subs Hosp L2 05/14/23 0955 <Electronically signed by Conrado Morel MD> Cosigner Signature (if applicable): CC: ~ Signed [facility] Work Phone: 1(294) 806-772104-04-2024 Progress note Author Conrado Morel [facility] May 13, 2023 8:53am Note Date/Time May 13, 2023 8:50 am [facility] Medical Records Department [address] [place] [address] Progress Note - Hospitalist 05/13/23 0850 MR#: [id number] Acct: [id number] Name: ANALILIA MELENDREZ Rep #:[id number] : 1960 62 From: Conrado Morel MD [...] (Auto) 79.2 H, Lymph %(Auto) 7.4 L, [place] % (Auto) 9.6, Eos % (Auto) 2.0, [...] to the intensive care unit in [facility] ordered for PICC line. If patient does not respond to fluid resuscitation plan will be to start patient on norepinephrine. Consult placed to repeater operator ? 05/11/2023; patient remains in ICU did [...] 40 Minutes Charges/Coding Visit Charges Inpatient E&M: 64630 Subs Hosp L2 05/13/23 0853 <Electronically signed by Conrado Morel MD> Cosigner Signature (if applicable): CC: ~ Signed [facility] Work Phone: 1(240) 946-496204-04-2024 Progress note Author Barryyolanda Sheehan [facility] May 13, 2023 8:28am Note Date/Time May 13, 2023 7:23 am [facility] Medical Records Department [address] [place] [address] Progress Note - Investment Sales Assistant 05/13/23 0721 MR#: [id number] Acct: [id number] Name: ANALILIA MELENDREZ Rep #:[id number] : 1960 62 From: Barry Sheehan PCP: [...] 7 g/dL. This note was generated with [employer] software. It may contain incorrectwords, spelling, and [...] (Auto) 79.2 H, Lymph %(Auto) 7.4 L, [place] % (Auto) 9.6, Eos % (Auto) 2.0, [...] flat affect Charges/Coding Visit Charges Inpatient E&M: 64449 Subs Hosp L2 05/13/23 0828 <Electronically signed by Barry Sheehan DO> Cosigner Signature (if applicable): CC: ~ Signed [facility] Work Phone: 1(659) 997-961304-03-2024 Progress note Author Barry Sheehan [facility] May 12, 2023 9:16am Note Date/Time May 12, 2023 6:48 am [facility] Medical Records Department [address] [facility] [place] [address] Progress Note - Investment Sales Assistant 05/12/23 0646 MR#: [id number] Acct: [id number] Name: ANEESHANALILIA JAMARI Rep #:[id number] : 1960 62 From: Barry Sheehan DO [...] gastroenterology consultation. This note was generated with [employer] dictation software. It may contain incorrectwords, spelling, [...] 82.9 H, Lymph % (Auto) 5.3 L, [place] % (Auto) 8.3, Eos % (Auto) 1.9, [...] flat affect Charges/Coding Visit Charges Inpatient E&M: 64864 Subs Hosp L2 05/12/23 0916 <Electronically signed by Barry Sheehan DO> Cosigner Signature (if applicable): CC: ~ Signed [facility] Work Phone: 1([phone]) 738-810904-03-2024 Progress note Author Conrado Morel [facility] May 12, 2023 7:33am Note Date/Time May 12, 2023 7:17 am [facility] Medical Records Department [address] [place] [address] Progress Note - Hospitalist 05/12/23 0717 MR#: [id number] Acct: [id number] Name: ANALILIA MELENDREZ Rep #:[id number] : 1960 62 From: Conrado Morel MD [...] 82.9 H, Lymph % (Auto) 5.3 L, [place] % (Auto) 8.3, Eos % (Auto) 1.9, [...] start patient on norepinephrine. Consult placed to repeater operator ? 05/11/2023; patient remains in ICU did [...] 52 Minutes Charges/Coding Visit Charges Inpatient E&M: 09110 Subs Hosp L3 05/12/23 0748 <Electronically signed by Conrado Morel MD> Cosigner Signature (if applicable): CC: ~ Signed [facility] Work Phone: 1(989) 199-983704-03-2024 Progress note Author Iman Aguayo [facility] May 12, 2023 6:24am Note Date/Time May 12, 2023 1:57 am [facility] Medical Records Department [address] [place] [address] Progress Note - Hospitalist 05/12/23 0156 MR#: [id number] Acct: [id number] Name: ANALILIA MELENDREZ Rep #:[id number] : 1960 62 From: Iman Aguayo MD [...] Cosigner Signature (if applicable): cc: ~* Signed [facility] Work Phone: 1(850) 612-234304-02-2024 Consult note Author Barry Sheehan [facility] May 11, 2023 9:46am Note Date/Time May 10, 2023 2:08 pm [facility] Medical Records Department [address] [place] [address] Pharmacokinetic/Renal -Consult 05/10/23 1408 MR#: [id number] Acct: [id number] Name: ANALILIA MELENDREZ Rep #:[id number] : 1960 62 From: Yuri Robbins PCP: [...] Date Barry Sheehan DO CC: ~ Signed [facility] Work Phone: 1(535) 309-560504-02-2024 Progress note Author Barry Sheehan [facility] May 11, 2023 8:44am Note Date/Time May 11, 2023 7:22 am [facility] Medical Records Department [address] [place] [address] Progress Note - Investment Sales Assistant 05/11/23 0720 MR#: [id number] Acct: [id number] Name: ANALILIA MELENDREZ Rep #:[id number] : 1960 62 From: Barry Sheehan DO [...] withdrawal symptoms. This note was generated with [employer] software. It may contain incorrectwords, spelling, and [...] 94.5 H, Lymph % (Auto) 2.3 L, [place] % (Auto) 2.0, Eos % (Auto) 0.0, [...] 89.8 H, Lymph % (Auto) 2.4 L, [place]% (Auto) 6.0, Eos % (Auto) 0.9, Baso [...] affect normal Charges/Coding Visit Charges Inpatient E&M: 37591 Subs Hosp L2 05/11/23 0844 <Electronically signed by Barry Sheehan DO> Cosigner Signature (if applicable): CC: ~ Signed [facility] Work Phone: 1(423) 897-898904-02-2024 Progress note Author Conrado Morel [facility] May 11, 2023 8:43am Note Date/Time May 11, 2023 7:27 am [facility] Medical Records Department [address] [place] [address] Progress Note - Hospitalist 04/04/03 725 MR#: [id number] Acct: [id number] Name: ANALILIA MELENDREZ Rep #:[id number] : 1960 62 From: Conrado Morel MD [...] reason (05/09/23) Subjective Subjective Patient transferred from [facility] to ICU after being diagnosed with [...] 94.5 H, Lymph % (Auto) 2.3 L, [place] % (Auto) 2.0, Eos % (Auto) 0.0, [...] 89.8 H, Lymph % (Auto) 2.4 L, [place]% (Auto) 6.0, Eos % (Auto) 0.9, Baso [...] start patient on norepinephrine. Consult placed to repeater operator ? 05/11/2023; patient remains in ICU did [...] 52 Minutes Charges/Coding Visit Charges Inpatient E&M: 46909 Subs Hosp L3 05/11/23 0843 <Electronically signed by Conrado Morel MD> Cosigner Signature (if applicable): CC: ~ Signed [facility] Work Phone: 1(257) 809-573204-02-2024 Progress note Author Conrado Morel [facility] May 11, 2023 7:27am Note Date/Time May 10, 2023 9:56 am [facility] Medical Records Department [address] [place] [address] Progress Note - Hospitalist 05/10/23 0953 MR#: [id number] Acct: [id number] Name: ANALILIA MELENDREZ Rep #:[id number] : 1960 62 From: Conrado Morel MD [...] 92.8 H, Lymph % (Auto) 2.7 L, [place] % (Auto) 3.2, Eos % (Auto) 0.0, [...] Sl. Cloudy, Urine pH 8.0, Ur Specific [place] 1.015, Urine Protein 100 H, Urine Glucose [...] 94.5 H, Lymph % (Auto) 2.3 L, [place] % (Auto) 2.0, Eos % (Auto) 0.0, [...] start patient on norepinephrine. Consult placed to repeater operator ? 2. Chronic alcohol dependence with acute [...] Charges/Coding Multi Select Codes Hospitalists' Procedures Procedures: 86023 Critical Care 1st Hr and 13362 Advncd Care Plan addl 30 Min 05/10/23 4384 <Electronically signed by Conrado Morel MD> Cosigner [...] Cosigner Signature (if applicable): cc: ~* Signed [facility] Work Phone: 1(803) 655-834904-02-2024 Consult note Author Barry Sheehan [facility] May 11, 2023 7:20am Note Date/Time May 10, 2023 11:3 7am [facility] Medical Records Department [address] [place] [address] Consultation - Investment Sales Assistant 05/10/23 1129 MR#: [id number] Acct: [id number] Name: ANALILIA MELENDREZ Rep #:[id number] : 1960 62 From: Barry Sheehan DO [...] withdrawal symptoms. This note was generated with Findersfee dictation software. It may contain incorrectwords, spelling, [...] continues to report suprapubic abdominal discomfort. [facility] Medical History AAA (abdominal aortic aneurysm) Abdominal [...] 92.8 H, Lymph % (Auto) 2.7 L, [place] % (Auto) 3.2, Eos % (Auto) 0.0, [...] Sl. Cloudy, Urine pH 8.0, Ur Specific [place] 1.015, Urine Protein 100 H, Urine Glucose [...] 94.5 H, Lymph % (Auto) 2.3 L, [place] % (Auto) 2.0, Eos % (Auto) 0.0, [...] bolus ordered Charges/Coding Visit Charges Inpatient E&M: 20021 Init Hosp L3 05/11/23 0720 <Electronically signed [...] Dodge MD; Dr. Chen Merrill MD~ Signed [facility] Work Phone: 1(304) 540-885004-01-2024 History and physical note Author Conrado [facility] May 10, 2023 3:29am Note Date/Time May 09, 2023 8:3 7pm [facility] Medical Records Department [address] [place] [address] H&P Exam - Hospitalist 05/09/232033 MR#: [id number] Acct: [id number] Name: ANALILIA MELENDREZ Rep #:[id number] : 1960 62 From: Conrado Gonzalez DO PCP: ALAN Chahal tus:ADM IN [facility] HPI - General General Date of Admission: [...] history of coronary artery disease; status post CT, history of mechanical aortic valve replacement (2014); [...] with patient offered to go to a halfway facility upon discharge which he refused to so he could be discharged to his father's home whonow re-presents to [facility] ER complaining of abdominal pain. [...] to be greater than 48 hours. [facility] Medical History AAA (abdominal aortic aneurysm) Abdominal [...] Taken 11/11/21] dapagliflozin propanediol 10 [facility] 10 mg PO DAILY DIABETES 09/30/21 [History [...] History (Updated 05/09/23 @ 13:38 by Ann-Marie Noav) household members: family housing: house Smoking Status: [...] 92.8 H, Lymph % (Auto) 2.7 L, [place] % (Auto) 3.2, Eos % (Auto) 0.0, [...] Sl. Cloudy, Urine pH 8.0, Ur Specific [place] 1.015, Urine Protein 100 H, Urine Glucose [...] 16:54 EDT Reading Location ID and State: [facility] / [place] Tel [phone], Service support , Assessment & Plan Assessment/Plan [...] protocol focusing mainly on phenobarbital taper. 3. Mmxrz-ji-annsnwl severe protein calorie malnutrition with hypoalbuminemia of1.5 [...] (allegedly quit 10 years ago) - Check [place] urine drug screen this admission. 11. History of coronary artery disease; status post CT - Stable. Continue homeregimen as previous. 12. [...] 75 minutes. Charges/Coding Visit Charges Inpatient E&M: 02879 Init Hosp L3 05/10/23 0329 <Electronically signed by Conrado Pro DO> Cosigner Signature (if applicable): CC: ALAN Pathak; Dr. Conrado Pro DO~ Signed [facility] Work Phone: 1(827) 610-378704-01-2024 Discharge summary Author Carlos Augustin [facility] May 09, 2023 10:05pm Note Date/Time May 09, 2023 1:5 6pm [facility] Medical Records Department [address] [place] [address] Emergency Department Summary 05/09/23 MR#: [id number] Acct: [id number] Name: ANALILIA MELENDREZ Rep #:[id number] : 1960 62 From: Carlos Augustin MD PCP: ALAN Chahal tus:ADM IN Location: [address] <ALAN Dick - Last Filed: 05/09/23 [...] discharge was offered to go to a halfway facility secondary to the weakness as well [...] Dick - Last Filed: 05/09/23 20:40> [facility] Medical History AAA (abdominal aortic aneurysm) Admitted [...] <ALAN Dick - Last Filed: 05/09/23 20:40> [facility] Lab Data Labs: Laboratory Results - [...] 92.8 H Lymph % (Auto) 2.7 L [place] % (Auto) 3.2 Eos % (Auto) 0.0 [...] Sl. Cloudy Urine pH 8.0 Ur Specific [place] 1.015 Urine Protein 100 H Urine Glucose [...] Comments: Sinus tachycardia, rate of 40 bpm, GA interval 112 ms, QRS duration 100 ms, [...] Augustin MD - Last Filed: 05/09/23 17:14> [facility] MDM Narrative Medical decision making narrative: [...] tenderness, no guarding or rebound tenderness. No [place] sign or Huizar Gillespie sign. No CVA [...] 92.8 H Lymph % (Auto) 2.7 L [place] % (Auto) 3.2 Eos % (Auto) 0.0 [...] Sl. Cloudy Urine pH 8.0 Ur Specific [place] 1.015 Urine Protein 100 H Urine Glucose [...] Provider: Andreas Pathak NP Referrals: Andreas Pathak ORDER FULFILLMENT SPECIALIST, ORDER FULFILLMENT SPECIALIST-C [Primary Care Provider] - Disposition Disposition: [facility] Care [facility] What to do if you have Problems For any increased pain, shortness of breath, bleeding, nausea or vomiting, chestpain, or any unexpected problems, contact your Primary Care Provider. Call [facility] ([phone]) or report to the closest Emergency Room. Call 911 if necessary. 05/09/232204 <Electronically signed by Carlos Augustin MD> Cosigner Signature (if applicable): 05/09/232039 <Electronically signed by Jacky MAY> CC: ORDER FULFILLMENT SPECIALISTAstrid Pathak ~ Signed [facility] Work Phone: 1(362) 981-952303-31-2024 Discharge summary Author Carlos Augustin [facility] May 09, 2023 10:05pm Note Date/Time May 09, 2023 1:5 6pm [facility] Medical Records Department [address] [place] [address] Emergency Department Summary 05/09/23 MR#: [id number] Acct: [id number] Name: ANALILIA MELENDREZ Rep #:[id number] : 1960 62 From: Carlos Augustin MD PCP: ALAN Chahal tus:ADM IN Location: [address] <ALAN Dick - Last Filed: 05/09/23 [...] discharge was offered to go to a halfway facility secondary to the weakness as well [...] for acute on chronic abdominal pain. [facility] <ALAN Dick - Last Filed: [...] <ALAN Dick - Last Filed: 05/09/23 20:40> [facility] Lab Data Labs: Laboratory Results - [...] 92.8 H Lymph % (Auto) 2.7 L [place] % (Auto) 3.2 Eos % (Auto) 0.0 [...] Sl. Cloudy Urine pH 8.0 Ur Specific [place] 1.015 Urine Protein 100 H Urine Glucose [...] Comments: Sinus tachycardia, rate of 40 bpm, GA interval 112 ms, QRS duration 100 ms, [...] Augustin MD - Last Filed: 05/09/23 17:14> [facility] Narrative Medical decision making narrative: I have [...] 92.8 H Lymph % (Auto) 2.7 L [place] % (Auto) 3.2 Eos % (Auto) 0.0 [...] Sl. Cloudy Urine pH 8.0 Ur Specific [place] 1.015 Urine Protein 100 H Urine Glucose [...] Andreas Pathak NP Referrals: Andreas Pathak NP, ORDER FULFILLMENT SPECIALIST-C [Primary Care Provider] - Disposition Disposition: Acute Care [facility] What to do if you have Problems For any increased pain, shortness of breath, bleeding, nausea or vomiting, chestpain, or any unexpected problems, contact your Primary Care Provider. Call [facility] ([phone]) or report to the closest Emergency Room. Call 911 if necessary. 05/09/232204 <Electronically signed by Carlos Augustin MD> Cosigner Signature (if applicable): 05/09/232039 <Electronically signed by Jacky MAY> CC: ORDER FULFILLMENT SPECIALISTAstrid Pathak ~ Signed [facility] Work Phone: 1(599) 366-258903-18-2024 Progress note [facility] April 26, 2023 3:53pm Note Date/Time April 26, 2023 11: 09am [facility] Medical Records Department [address] [place] [address] Progress Note 04/26/23 1105 MR#: [id number] Acct: [id number] Name: ANALILIA MELENDREZ Rep #:[id number] : 1960 62 From: Ashley Alvarado MD PCP: ALAN Chahal tus:ADM [place] Location: [place] NN249-4 Subjective Subjective Patient seen and examined. He [...] Awaiting placement. Charges/Coding Visit Charges Inpatient E&M: 91904 Subs Hosp L2 04/26/23 1553 <Electronically signed by Ashley Alvarado MD> Ashley Alvarado MD Cosigner Signature (if applicable): CC: ~ Signed [facility] Work Phone: 1(286) 974-825903-17-2024 Progress note Author Ashley [facility] April 25, 2023 2:40pm Note Date/Time April 25, 2023 11: 41[facility] Medical Records Department [address] [place] [address] Progress Note 04/25/23 1135 MR#: [id number] Acct: [id number] Name: ANALILIA MELENDREZ Rep #:[id number] : 1960 62 From: Ashley Alvarado MD PCP: Andreas Pathak, ORDER FULFILLMENT SPECIALISTMiahC Sta tus:ADM IN Location: [place] [address] Subjective Subjective Patient seen and examined. He [...] Awaiting placement. Charges/Coding Visit Charges Inpatient E&M: 62633 Subs Hosp L2 04/25/23 1440 <Electronically signed by Ashley Alvarado MD> Ashley Alvarado MD Cosigner Signature (if applicable): CC: ~ Signed [facility] Work Phone: 1(124) 685-196003-16-2024 Progress note Author Ashley [facility] April 24, 2023 4:53pm Note Date/Time April 24, 2023 11: 10am [facility] Medical Records Department [address] [place] [address] Progress Note 04/24/23 1108 MR#: [id number] Acct: [id number] Name: ANALILIA MELENDREZ Rep #:[id number] : 1960 62 From: Ashley Alvarado MD PCP: ALAN Chahal Sta tus:ADM IN [facility] Subjective Subjective Patient seen and examined. He [...] Awaiting placement. Charges/Coding Visit Charges Inpatient E&M: 25766 Subs Hosp L2 04/24/23 1036 <Electronically signed by Ashley Alvarado MD> Ashley Alvarado MD Cosigner Signature (if applicable): CC: ~ Signed [facility] Work Phone: 1(336) 196-201803-15-2024 Progress note Author Ashley [facility] April 23, 2023 3:29pm Note Date/Time April 23, 2023 3:2 1pm [facility] Medical Records Department [address] [place] [address] Progress Note 04/23/23 1519 MR#: [id number] Acct: [id number] Name: ANALILIA MELENDREZ Rep #:[id number] : 1960 62 From: Ashley Alvarado MD PCP: Andreas Pathak ORDER FULFILLMENT SPECIALISTMiahC Sta tus:ADM IN [facility]: [facility] Subjective Subjective Patient seen and examined. She [...] on board. Charges/Coding Visit Charges Inpatient E&M: 25805 Subs Hosp L2 04/23/23 9572 <Electronically signed by Ashley Alvarado MD> Ashley Alvarado MD Cosigner Signature (if applicable): CC: ~ Signed [facility] Work Phone: 1(211) 187-663403-15-2024 Consult note Author Yuri Robbins [facility] April 23, 2023 11:46am Note Date/Time April 23, 2023 11: 46am [facility] Medical Records Department [address] [place] [address] Counseling Note - Pharmacy 04/23/23 1146 MR#: [id number] Acct: [id number] Name: ANALILIA MELENDREZ Rep #:[id number] : 1960 62 From: Yuri Robbins PCP: ALAN Chahal tus:ADM IN Y Location: [place] [address] [place] [facility] has performed discharge [...] Signature (if applicable): Date CC: ~ Signed [facility] Work Phone: 1(364) 703-166403-15-2024 Consult note Author Yuri Robbins [facility] April 23, 2023 11:45am Note Date/Time April 23, 2023 11: 45am [facility] Medical Records Department [address] [place] [address] Counseling Note - Pharmacy 04/23/23 1145 MR#: [id number] Acct: [id number] Name: ANALILIA MELENDREZ Rep #:[id number] : 1960 62 From: Yuri Robbins PCP: ALAN Cahhal tus:ADM IN Y Location: [place] [address] [place]acy [place] [facility] has performed discharge [...] Cosigner Signature (if applicable): CC: ~ Signed [facility] Work Phone: 1(797) 364-795703-15-2024 Discharge summary Author Ashley Alvarado [facility] April 23, 2023 11:44am Note Date/Time April 23, 2023 11: 40am [facility] Medical Records Department [address] [place] [address] Instructions for Home/Discharge Instructions 04/23/23 1139 MR#: [id number] Acct: [id number] Name: ANALILIA MELENDREZ Rep #:[id number] : 1960 62 From: Ashley Alvarado MD [...] Pathak; Dr. Lucas Frausto MD ~ Signed [facility] Work Phone: 1(272) 914-660903-14-2024 Progress note Author [facility] April 22, 2023 3:41pm Note Date/Time April 22, 2023 11: [address] [place] [address] Health System Medical Records Department [address] [place] [address] Progress Note 04/22/23 1112 MR#: [id number] Acct: [id number] Name: DARRINANALILIA VERNON JAMARI Rep #:[id number] : 1960 62 From: Ashley Alvarado MD PCP: ALAN Chahal Sta tus:ADM IN [facility] [facility]030-6 Subjective Subjective Patient seen and examined. He [...] Clarity Clear, Urine pH 8.0, Ur Specific [place] 1.015, Urine Protein 15 H, Urine Glucose [...] Encourage ambulation. Charges/Coding Visit Charges Inpatient E&M: 66679 Subs Hosp L2 04/22/23 1541 <Electronically signed by Ashley Alvarado MD> Ashley Alvarado MD Cosigner Signature (if applicable): CC: ~ Signed [facility] Work Phone: 1(331) 115-950103-13-2024 Progress note Author Ashley Alvarado [facility] April 21, 2023 4:06pm Note Date/Time April 21, 2023 2:5 4pm [facility] Medical Records Department [address] [place] [address] Progress Note 04/21/23 1449 MR#: [id number] Acct: [id number] Name: ANALILIA MELENDREZ Rep #:[id number] : 1960 62 From: Ashley Alvarado MD PCP: ALAN Chahal tus:ADM IN Location: [place] [address] Subjective Subjective Patient seen and examined. HE [...] 76.5 H, Lymph % (Auto) 11.2 L, [place] % (Auto) 10.2 H, Eos % (Auto) [...] (MDRD) Non-Af 69, BUN/Creatinine Ratio 5.2 L, Tryjewf810, Calcium 7.3 L, Total Bilirubin 1.00, AST [...] Encourage ambulation. Charges/Coding Visit Charges Inpatient E&M: 96113 Subs Hosp L2 04/21/23 1606 <Electronically signed by Ashley Alvarado MD> Ashley Alvaardo MD Cosigner Signature (if applicable): CC: ~ Signed [facility] Work Phone: 1(414) 300-159503-12-2024 History and physical note Author Lucas Frausto [facility] April 20, 2023 7:17pm Note Date/Time April 20, 2023 3:2 9pm [facility] Medical Records Department [address] [place] [address] H&P Exam - Hospitalist 04/20/23 1526 MR#: [id number] Acct: [id number] Name: ANALILIA MELENDREZ Rep #:[id number] : 1960 62 From: Lucas loyola MD PCP: ALAN Chahal tus:ADM IN [facility] HPI - General General Date of Admission: [...] some anxiety as well as tremors. [facility] Medical History AAA (abdominal aortic aneurysm) Admitted [...] with colleagues Charges/Coding Visit Charges Inpatient E&M: 21059 Init Hosp L3 04/20/231916 <Electronically signed by Lucas Frausto MD> Cosigner Signature (if applicable): CC: ALAN Pathak; Dr. Lucas Frausto MD~ Signed [facility] Work Phone: 1(208) 970-463803-12-2024 Discharge summary Author Chris Call [facility] April 20, 2023 4:43pm Note Date/Time April 20, 2023 11: 43am [facility] Medical Records Department [address] [place] [address] Emergency Department Summary 04/20/23 MR#: [id number] Acct: [id number] Name: ANALILIA MELENDREZ Rep #:[id number] : 1960 62 From: Chris Harvey PCP: Andreas Pathak, ORDER FULFILLMENT SPECIALIST-C Sta tus:ADM IN Location: [place] CR856-6 HPI HPI - GI History of Present [...] clinician: Hospitalist This note was generated with Findersfee dictation software. It may contain incorrectwords, spelling, [...] Alcoholic hepatitis Disposition Disposition: Acute Care [facility] Discharge Date/Time: 04/20/23 16:21 What to do if you have Problems For any increased pain, shortness of breath, bleeding, nausea or vomiting, chestpain, or any unexpected problems, contact your Primary Care Provider. Call [facility] ([phone]) or report to the closest Emergency Room. Call 911 if necessary. 04/20/23 1643 <Electronically signed by Chris Harvey> Cosigner Signature (if applicable): CC: ALAN Pathak ~ Signed [facility] Work Phone: 1(812) 704-541402-19-2024 Evaluation + Plan note Future Scheduled Tests [...] Radiology* US Elastography Liver w/ABD Complete 03/05/23 [facility] 02-19-2024 Evaluation + Plan note Future Scheduled Tests Laboratory* Calcium Level Ionized 03/29/23 * Prostate Specific Antigen 07/14/23 * Reticulocytes (AO) 03/29/23 * A1C Hemoglobin 07/14/23 * Complete Blood Count 03/29/23 * Complete Blood Count 07/14/23 * Lipid Profile 07/14/23 * Albumin/Creatinine Ratio, Random Urine 07/14/23 * PTH, Intact 07/14/23 * Vitamin D Level 07/14/23 * Complete Metabolic Panel 07/14/23 [facility] 02-10-2024 Note. MICRO - Microbiology PROCEDURE: [...] Locations *1: This test was performed at: [facility], [address] [place] [address], [facility] , On license of [facility]03-20-2023 Note. MICRO - Microbiology PROCEDURE: Blood Culture [...] Locations *1: This test was performed at: [facility], [address] [place] [address], [address]- , On license of [facility]03-19-2023 Hospital Discharge instructions Patient Education 03/19/2023 11:39:35 [...] depending on your insurance coverage. Check with your[employer]obbler company about what is covered. Keeping follow-up [...] 04/30/2017 Document Revised: 01/28/2018 Document Reviewed: 04/30/2017 [employer] Patient Education 2020 [employer]. 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 [...] BETTINA CERDA MD on 03/19/2023 12:39 PM [id number] Note Discharge Instructions Thank you for allowing [facility] to assist you with your healthcare needs. The following is importantdischarge information regarding your hospital visit. Your Care Team ANDREAS PATAHK APRN, CNP Your Diagnosis Altered mental status What to do next Scheduled Follow-Up Appointments Appointment Type When Where Contact InformationMEDS - Diabetic Individual Visit 04/12/2023 01:30 [facility] Diet Visits [phone] Follow Up Appointments Follow Up with ANDREAS PATHAK APRN, CNP When Within 1-2 days Why: Please call the office to schedule a follow-up appointment Where: [address] [place] [address]- The Following Activity and Diet Have Been [...] depending on your insurance coverage. Check with [employer] company about what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 difficile diarrhea Intestinal infection due to clostridium difficile E. coli UTI Urinary tract infection, site not specified documented in this encounter [facility] note* Diagnosis Generalized abdominal pain Abdominal pain, generalized Diarrhea of presumed infectious origin Weight loss Loss of weight Anemia, unspecified type History of alcohol abuse Nondependent alcohol abuse, in remission Elevated liver enzymes Other nonspecific abnormal serum enzyme levels documented in this encounter [facility] note* Diagnosis E. coli UTI Urinary tract infection, site not specified CKD stage 3 secondary to diabetes ([facility]) Medically complex patient Unspecified conditions influencing health status Anemia, unspecified type documented in this encounter [facility] note* Diagnosis Diarrhea, unspecified type- Primary Acute pancreatitis, unspecified complication status, unspecified pancreatitis type CKD stage 3 secondary to diabetes ([facility]) Medically complex patient Unspecified conditions influencing health status Anemia, unspecified type documented in this encounter [facility] note* Diagnosis Anemia, unspecified type- Primary Diarrhea of presumed infectious origin CKD stage 3 secondary to diabetes ([facility]) Medically complex patient Unspecified conditions influencing health status [facility]* Diagnosis Diarrhea, unspecified type Acute pancreatitis, unspecified complication status, unspecified pancreatitis type documented in this encounter [facility] note* Diagnosis Diarrhea, unspecified type- Primary Acute pancreatitis, unspecified complication status, unspecified pancreatitis type documented in this encounter [facility] note* Diagnosis Diarrhea, unspecified type Acute pancreatitis, unspecified complication status, unspecified pancreatitis type [facility]* Diagnosis Anemia, unspecified type- Primary Weight loss Loss of weight Chronic pancreatitis, unspecified pancreatitis type ([facility]) Epigastric pain Abdominal pain, epigastric Right lower quadrant abdominal pain Abdominal pain, right lower quadrant documented in this encounter [facility] note* Diagnosis Primary hypertension- Primary Unspecified essential hypertension Type 2 diabetes mellitus with complication, with long-term current use of insulin ([facility]) Stage 3 chronic kidney disease, unspecified whether stage 3a or 3b CKD ([facility]) Hyperlipidemia, mixed Mixed hyperlipidemia Gastroesophageal reflux disease, unspecified whether esophagitis present Chronic pancreatitis, unspecified pancreatitis type ([facility]) Anemia, unspecified type documented in this encounter [facility] note* Diagnosis Anemia, unspecified type documented in this encounter [facility] note* Diagnosis Anemia, unspecified type- Primary documented in this encounter [facility] note* Diagnosis Gastroesophageal reflux disease, unspecified whether esophagitis present documented in this encounter [facility] note* Diagnosis Type 2 diabetes mellitus with complication, with long-term current use of insulin (HCC)- Primary Hyperlipidemia LDL goal <100 Other and unspecified hyperlipidemia Primary hypertension Unspecified essential hypertension documented in this encounter [facility] note* Diagnosis Type 2 diabetes mellitus with complication, with long-term current use of insulin (HCC) documented in this encounter [facility] note* Diagnosis Anemia, unspecified type Weight loss Loss of weight Chronic pancreatitis, unspecified pancreatitis type (HCC) Epigastric pain Abdominal pain, epigastric documented in this encounter [facility] note* Diagnosis Hyperlipidemia LDL goal <100 Other and unspecified hyperlipidemia Primary hypertension Unspecified essential hypertension documented in this encounter [facility] note* Diagnosis Anemia, unspecified type- Primary 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) documented in this encounter [facility] note* Diagnosis Primary hypertension Unspecified essential hypertension documented in this encounter [facility] note* Diagnosis Primary hypertension Unspecified essential hypertension Gastroesophageal reflux disease, unspecified whether esophagitis present documented in this encounter [facility] note* Diagnosis Onset Date Resolution Status Admit Date Adverse drug reaction acute June 25, 2024 10:15pm Ascites due to alcoholic cirrhosis acute June 25, 2024 1 0:15pm Hypokalemia acute June 25 10:15pm Lactic acidosis acute June 25, 2024 10:15pm Chronic alcohol abuse chronic June 25, 2024 10:15pm Chronic diarrhea chronic June 10:15pm [facility] Work Phone: Evaluation note* Diagnosis Chronic diarrhea Diarrhea Irritable bowel syndrome, unspecified type Hyperlipidemia LDL goal <100 Other and unspecified hyperlipidemia documented in this encounter [facility] note* Diagnosis Primary hypertension Unspecified essential hypertension documented in this encounter [facility] note* Diagnosis Nonrheumatic aortic valve stenosis- Primary Aortic valve disorders documented in this encounter [facility] note* Diagnosis Nonrheumatic aortic valve stenosis- Primary Aortic valve disorders [facility]ayo [facility] March 21, 2022 6:31pm Note Date/Time March 21, 2022 6:06pm [facility] Medical Records Department [address] [place] [address] H&P Exam - Hospitalist 03/21/22 1831 MR#: [id number] Acct: [id number] Name: ANALILIA MELENDREZ Rep #:[id number] : 1960 61 From: Iman Aguayo MD PCP: Andreas Pathak, ALAN Ball tus:ADM [place] [facility] [id number] HPI - General General Date of Admission: [...] recently 02/01/22 who now re-presents to the [facility] ED on 03/21/22 with history of [...] upon requested evaluation, POC glucose 337. [facility] Medical History Acute hypokalemia Adrenal nodule Alcohol [...] recently 02/01/22 who now re-presents to the [facility] ED on 03/21/22 with history of [...] 75 minutes. Charges/Coding Visit Charges Inpatient E&M: 04337 Init Hosp L3 03/21/22 1831 <Electronically signed by Iman Aguayo MD> Cosigner Signature (if applicable): CC: ORDER FULFILLMENT SPECIALIST-C Andreas Pathak; Dr. Iman Aguayo MD~ Signed [facility] Work Phone: History and physical note Author Melonie De La Rosa [facility] Note Date/Time July 11, 2024 3:21p m [facility] Medical Records Department [address] [place] [address] H&P Exam - Hospitalist 07/11/24 1405 MR#: [id number] Acct: [id number] Name: ANALILIA MELENDREZ Rep #:[id number] : 1960 63 From: Melonie De La Rosa DO PCP: ALAN Wilde Status:REG E R Location: ED HPI - General General Date of Admission: 07/11/24 Date of Service: 07/11/24 Chief Complaint: Suicidal ideation/nausea vomiting HPI Narrative ANALILIA MELENDREZ, is a 63 M who presented to the emergency department at [facility] on 07/11/2024 with a chief [...] with Dr. Fontanez prior to admission. [facility] Medical History Thrombocytopenia Chronic pancreatitis Macrocytosis associated [...] reflux #60 tabs 06/27/23 Unknown Rx release [id number]-aypsayit-zdlczwi 1 cap PO TIDCM #90 caps 06/09 [...] Clarity Clear, Urine pH 8.0, Ur Specific [place] 1.010, Urine Protein 15 H, Urine Glucose [...] 74.9 H, Lymph % (Auto) 15.4 L, [place] % (Auto) 7.7, Eos % (Auto) 0.4, [...] pleural effusion with compressive atelectasis. Reading Location[facility] Assessment & Plan Assessment/Plan (1) Abdominal [...] need ALBERT and probable referral to a [facility] [place] Outpatient follow-up here with cardiology after [...] thoracic dissection and was treated at [facility] History of heroin abuse - [...] Full code Charges/Coding Visit Charges Inpatient E&M: 41475 Init Hosp L2 07/11/24 1525 <Electronically signed by Melonie Rj DO> Cosigner Signature (if applicable): CC: ALAN Wagner; Dr. Melonie De La Rosa, ~ Signed [facility] Work Phone: History and physical note Author Jacky Vila [facility] Note Date/Time August 29, 2024 12:3 3am [facility] Medical Records Department [address] [place] [address] History & Physical Exam 08/29/24 0019 MR#: [id number] Acct: [id number] Name: ANALILIA MELENDREZ Rep #:[id number] : 1960 64 From: Jacky Vila MD [...] of anemia, ascites and alcohol abuse, pancreatitis, CT, diabetes, aortic valve replaced with a bovine [...] be admitted here in the hospital. [facility] Medical History Malnutrition Pancytopenia Medically noncompliant Thrombocytopenia [...] #60 tabs 08/03/24 Unknown Rx tablet (Entresto) ycpnre-rpwbxjyv-afekwuv 1 cap PO BIDCM 08/29/24 Unkn own [...] % (Auto) 68.3, Lymph % (Auto) 21.3, [place] % (Auto) 7.6, Eos % (Auto) 1.4, [...] Clarity Clear, Urine pH 7.0, Ur Specific [place] 1.010, Urine Protein Negative, Urine Glucose (UA) [...] pneumonia. 2. Bilateral pleural effusions. Reading Location: [facility] Assessment & Plan Assessment/Plan (1) Medically noncompliant: [...] the a.m. Charges/Coding Visit Charges Inpatient E&M: 14360 Init Hosp L2 08/29/24 0033 <Electronically signed by Jacky Vila MD> Cosigner Signature (if applicable): CC: Dr. Jacky Vila MD; Sigrid Call DO~ Signed [facility] Work Phone: History and physical note Author Diana Willoughby [facility] Note Date/Time October 12, 2024 4:20pm [facility] Medical Records Department [address] [place] [address] H&P Exam - Hospitalist 10/12/24 1609 MR#: [id number] Acct: [id number] Name: ANALILIA MELENDREZ Rep #:[id number] : 1960 64 From: Diana Willoughby MD PCP: Sigrid Call DO Status:ADM IN Location: [facility] [id number] HPI - General General Date of Admission: 10/12/24 Date of Service: 10/12/24 Chief Complaint: Shortness of breath HPI Narrative ANALILIA MELENDREZ, is a 64-year-old male with a history of alcohol abuse, chronic pancreatitis, AAA, sick sinus syndrome status post PPM, GERD, CHF, diabetes, chronic hypoxic respiratory failure, history of para and thoracentesis who presented to [facility] ED 11/02 with complaints of shortness ofbreath and increased swelling in lower extremities that is worsened over the past several days and has not missed any doses. In the ED temp 97.2, heart [id number] with blood pressure 142/102, respiratory rate 29 [...] shortnessof breath, no bowel or bladder changes [facility] Medical History Chronic pancreatitis Chronic pancreatitis due [...] #60 tabs 08/03/24 Unknown Rx tablet (Entresto) jrulgg-ypiqbkgt-rqthdet 1 cap PO BIDCM 08/29/24 Unkn own [...] % (Auto) 65.8, Lymph % (Auto) 20.8, [place] % (Auto) 9.5, Eos % (Auto) 1.5, [...] 105 H* D, [place] [address] H 10/12/24 12:08: Troponin T Hi Sens 2 Hr 91 H* 10/12/24 14:18: Troponin T Hi Sens 4Hr 83 H* Imaging Radiology Impression Chest X-Ray 10/12/24 10:15 IMPRESSION: Bilateral pleural effusions right greater than left as described with bibasilar compressive atelectasis. Reading Location: [id number] Abdomen/Pelvis CT 10/12/24 13:10 IMPRESSION: Bilateral pleural effusions right greater than left with dependent bibasilar atelectasis. Diffuse pancreatic calcification in keeping with chronic pancreatitis. Pancreatic atrophy. Fatty infiltration of the liver. Stable aneurysmal dilatation of the ascending thoracic aorta. Small umbilical hernia containing fat. [id number] Assessment & Plan Assessment/Plan (1) Acute exacerbation [...] Diana Willoughby MD; Sigrid Call DO~ Signed [facility] Work Phone: Hospital course Narrative No data available for this section [facility] Hospital Discharge instructions No data available for this section [facility] Work Phone: [facility] instructionsW[facility] Work Phone: [facility] Work Phone: Hospital Discharge instructions Additional Instructions Plenty of fluids and rest. Probably suggest stopping smoking and decreasing your alcohol use. Zofran as needed for nausea. Call and follow-up with your GI doctor soon as possible. If increasing pain, fever, intractable vomiting or feeling worse.[facility] Work Phone: Hospital Discharge instructionsAdditional [...] If symptoms worsen come back to the ER.[facility] Work Phone: Progress note No data available for this section [facility] Reason for referral (narrative)* Outpatient Procedure (Routine) - New Request Specialty Diagnoses / Procedures Referred By Jonathan t Referred To Contact [facility] Diagnoses Anemia, unspecified type Weight loss Chronic pancreatitis, unspecified pancreatitis type (HCC) Epigastric pain Procedures EGD DIAGNOSTIC EGD DIAGNOSTIC ESOPHAGOGASTRODUODENOSCO PY TRANSORAL DIAGNOSTIC Susana Ramirez APRN.PHYSICAL THERAPIST TECHNICIAN [address] [place] [address] [facility] [address] [place] [address] Referral ID Status Reason Start Date Expiration Date Visits Requested Visits Authorized [id number] New Request Auto-Generat ed Referral 4 12/23/2024 1 1 * Outpatient Procedure (Routine) - New Request Specialty Diagnoses / Procedures Referred By Jonathan moreira Referred To Contact [facility] Diagnoses Anemia, unspecified type Weight loss Procedures COLONOSCOPY DIAGNOSTIC COLONOSCOPY DIAGNOSTIC COLONOSCOPY FLX DX W/COLLJ SPEC WHEN PFRMD Susana Ramirez APRN.PHYSICAL THERAPIST TECHNICIAN [address] [place] [address] [facility] [address] [place] [id number] Referral ID Status Reason Start Date Expiration Date Visits Requested Visits Authorized [id number] New Request Auto-Generat ed Referral 12/23/2024 1 1 [facility]No reason for referral information availableWProMedica [facility] Work Phone: Reason for visit Narrative* Outpatient Procedure (Routine) - Closed Specialty Diagnoses / Procedures Referred By Jonathan moreira Referred To Contact [facility] Diagnoses Anemia, unspecified type Weight loss Chronic pancreatitis, unspecified pancreatitis type (HCC) Epigastric pain Procedures EGD DIAGNOSTIC EGD DIAGNOSTIC EGD DIAGNOSTIC ESOPHAGOGASTRODUODENOSCO PY TRANSORAL DIAGNOSTIC Susana Ramirez APRN.PHYSICAL THERAPIST TECHNICIAN [address] [place] [address] Phone: tel: fax: [facility] [address] [place] [id number] Referral ID Status Reason Start Date Expiration Date V isits Requested Visits Authorized [id number] Closed Auto-Generate d Referral 12/24/2023 12/23/2024 1 1 [facility] Summary Purpose Family History No Family History Records Found Relationship Condition Age at Onset Recorded Date/T kaila father Coronary artery disease Unknown mother Dementia Unknown Advance Directives No Advanced Directives Records Found Advance Directive Response Recorded Date/ Time Advance Directives No January 09, 2017 2:00pm Living Will No May 04, 2021 1:22pm Power of Liquid Compounder No May 04 1:22pm Advance Directive Response Recorded Date/ Time Advance Directives No January 09, 2017 2:00pm Living Will No May 04, 2021 3:44pm Power of Liquid Compounder No May 04 3:44pm Advance Directive Response Recorded Date/ Time Advance Directives No January 09, 2017 2:00pm Living Will No May 29, 2021 7:13pm Power of Liquid Compounder No May 29 7:13pm Advance Directive Response Recorded Date/ Time Advance Directives No January 09, 2017 2:00pm Living Will No May 29, 2021 10:10pm Power of Liquid Compounder No May 29 10:10pm Advance Directive Response Recorded Date/ Time Advance Directives No January 09, 2017 2:00pm Living Will No September 30 2:09pm Power of Liquid Compounder No September 30 022 2:09pm Advance Directive Response Recorded Date/ Time Advance Directives No January 09, 2017 2:00pm Living Will No October 06 12:26pm Power of Liquid Compounder No October 06 022 12:26pm Advance Directive Response Recorded Date/ Time Name of Medical Power of Liquid Compounder TERRA MELENDREZ November 05, 2021 7:17pm Advance Directives No January 09, 2017 2:00pm Living Will Yes November 05, 2021 7:17pm Power of Liquid Compounder Yes October 7:17pm Advance Directive Response Recorded Date/ Time Name of Medical Power of Liquid Compounder TERRA MELENDREZ November 05, 2021 6:17pm Name of Medical Power of Liquid Compounder Terra Aneesh November 11, 2021 3:27pm Name of Medical Power of Liquid Compounder potayla, daughter February 01, 2022 7:05pm Advance Directives No January 09, 2017 1:00pm Living Will Yes February 01, 2 022 7:05pm Power of Liquid Compounder Yes February 01, 2022 7:05pm Advance Directive Response Recorded Date/ Time Name of Medical Power of Liquid Compounder TERRAIVAN MELENDREZ November 05, 2021 6:17pm Name of Medical Power of Liquid Compounder Terra Melendrez November 11, 2021 3:27pm Name of Medical Power of Liquid Compounder dgtr February 01, 2022 9:39pm Advance Directives No January 09, 2017 1:00pm Living Will Yes February 01, 2 022 9:39pm Power of Liquid Compounder Yes February 01, 2022 9:39pm Advance Directive Response Recorded Date/ Time Name of Medical Power of Liquid Compounder dgtr February 01, 2022 9:39pm Advance Directives No January 09, 2017 1:00pm Living Will No March 21 023 6:13pm Power of Liquid Compounder No March 21, 2022 6:13pm Advance Directive Response Recorded Date/ Time Name of Medical Power of Liquid Compounder dgtr February 01, 2022 9:39pm Name of Medical Power of Liquid Compounder pt unsure March 21, 2022 7:51pm Advance Directives No January 09, 2017 1:00pm Living Will Yes March 21, 023 7:51pm Power of Liquid Compounder Yes March 21, 2022 7:51pm Advance Directive Response Recorded Date/ Time Advance Directives No January 09, 2017 2:00pm Living Will No November 01, 2022 8:05pm Power of Liquid Compounder No October 8:05pm Advance Directive Response Recorded Date/ Time Advance Directives No January 09, 2017 2:00pm Living Will No April 20, 2023 11:35am Power of Liquid Compounder No April 19 11:35am Advance Directive Response Recorded Date/ Time Advance Directives No January 09, 2017 2:00pm Living Will No April 20, 2023 5:00pm Power of Liquid Compounder No April 19 5:00pm Advance Directive Response Recorded Date/ Time Advance Directives No January 09, 2017 2:00pm Living Will No May 09, 2023 1:46pm Power of Liquid Compounder No May 08 1:46pm Advance Directive Response Recorded Date/ Time Advance Directives No January 09, 2017 2:00pm Living Will No May 09, 2023 10:12pm Power of Liquid Compounder No May 08 10:12pm Advance Directive Response Recorded Date/ Time Do you have a Healthcare Power of Liquid Compounder? Yes June 25, 2024 4:17pm Advance Directives No January 09, 2017 2:00pm Advance Directive Response Recorded Date/ Time Do you have a Healthcare Power of Liquid Compounder? Yes June 26, 2024 12:18am Advance Directives No January 09, 2017 2:00pm Advance Directive Response Recorded Date/ Time Do you have a Healthcare Power of Liquid Compounder? Yes June 26, 2024 12:18am Do you have a Healthcare Power of Liquid Compounder? Yes June 30, 2024 8:46pm Advance Directives No January 09, 2017 2:00pm Advance Directive Response Recorded Date/ Time Do you have a Healthcare Power of Liquid Compounder? Yes June 26, 2024 12:18am Do you have a Healthcare Power of Liquid Compounder? Yes June 30, 2024 8:46pm Do you have a Healthcare Power of Liquid Compounder? No July 11, 2024 4:12pm Advance Directives No January 09, 2017 2:00pm Advance Directive Response Recorded Date/ Time Do you have a Healthcare Power of Liquid Compounder? Yes June 26, 2024 12:18am Do you have a Healthcare Power of Liquid Compounder? Yes June 30, 2024 8:46pm Do you have a Healthcare Power of Liquid Compounder? No July 11, 2024 11:40am Advance Directives No January 09, 2017 2:00pm Advance Directive Response Recorded Date/ Time Do you have a Healthcare Power of Liquid Compounder? Yes June 26, 2024 12:18am Do you have a Healthcare Power of Liquid Compounder? Yes June 30, 2024 8:46pm Do you have a Healthcare Power of Liquid Compounder? No July 11, 2024 4:12pm Do you have a Healthcare Power of Liquid Compounder? Yes August 01, 2024 2:20pm Advance Directives No January 09, 2017 2:00pm Advance Directive Response Recorded Date/ Time Do you have a Healthcare Power of Liquid Compounder? Yes June 26, 2024 12:18am Do you have a Healthcare Power of Liquid Compounder? Yes June 30, 2024 8:46pm Do you have a Healthcare Power of Liquid Compounder? No July 11, 2024 4:12pm Do you have a Healthcare Power of Liquid Compounder? No August 01, 2024 10:05pm Advance Directives No January 09, 2017 2:00pm Advance Directive Response Recorded Date/ Time Do you have a Healthcare Power of Liquid Compounder? Yes June 26, 2024 12:18am Do you have a Healthcare Power of Liquid Compounder? Yes June 30, 2024 8:46pm Do you have a Healthcare Power of Liquid Compounder? No July 11, 2024 4:12pm Do you have a Healthcare Power of Liquid Compounder? No August 01, 2024 10:05pm Do you have a Healthcare Power of Liquid Compounder? No August 28, 2024 5:50pm Advance Directives No January 09, 2017 2:00pm Advance Directive Response Recorded Date/ Time Do you have a Healthcare Power of Liquid Compounder? Yes June 26, 2024 12:18am Do you have a Healthcare Power of Liquid Compounder? Yes June 30, 2024 8:46pm Do you have a Healthcare Power of Liquid Compounder? No July 11, 2024 4:12pm Do you have a Healthcare Power of Liquid Compounder? No August 01, 2024 10:05pm Do you have a Healthcare Power of Liquid Compounder? No August 29, 2024 1:25am Advance Directives No January 09, 2017 2:00pm Advance Directive Response Recorded Date/ Time Do you have a Healthcare Power of Liquid Compounder? Yes June 26, 2024 12:18am Do you have a Healthcare Power of Liquid Compounder? Yes June 30, 2024 8:46pm Do you have a Healthcare Power of Liquid Compounder? No July 11, 2024 4:12pm Do you have a Healthcare Power of Liquid Compounder? No August 01, 2024 10:05pm Do you have a Healthcare Power of Liquid Compounder? No August 29, 2024 1:25am Do you have a Healthcare Power of Liquid Compounder? Yes October 06, 2024 12:41pm Advance Directives No January 09, 2017 2:00pm Advance Directive Response Recorded Date/ Time Do you have a Healthcare Power of Liquid Compounder? Yes June 26, 2024 12:18am Do you have a Healthcare Power of Liquid Compounder? Yes June 30, 2024 8:46pm Do you have a Healthcare Power of Liquid Compounder? No July 11, 2024 4:12pm Do you have a Healthcare Power of Liquid Compounder? No August 01, 2024 10:05pm Do you have a Healthcare Power of Liquid Compounder? No August 29, 2024 1:25am Do you have a Healthcare Power of Liquid Compounder? Yes October 06, 2024 12:41pm Do you have a Healthcare Power of Liquid Compounder? No October 12, 2024 9:52am Advance Directives [...] W IVCON CT ABDOMEN W/CONTRAST Marianna Wagner, SCREEN REPAIRER CRUSHER.PHYSICAL THERAPIST TECHNICIAN [address] [place] [address] [place] [address] Referral ID Status Reason Start Date Expiration Date Visits Requested Visits Authorized [id number] New Request Auto-Generat ed Referral 11/08/2023 12/06/2024 1 1 Specialty Diagnoses / Procedures Referred By Contbelle t Referred To Contact Hematology / [facility] Diagnoses 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) Medically complex patient Anemia, unspecified type Procedures CONSULT TO HEMATOLOGY OFFICE/OUTPATIENT [facility] 60 MINUTES Marianna Wagner, SCREEN REPAIRER CRUSHER.PHYSICAL THERAPIST TECHNICIAN [address] [place] [address] Jacky Sebastian DO [address] [place] [address] Referral ID Status Reason Start Date Expiration Date Visits Requested Visits Authorized [id number] Authorized PCP Requested Referral 10/17/2023 10/16/2024 1 1 Specialty Diagnoses / Procedures Referred By Contac t Referred To Contact CT IMAGING Diagnoses Generalized abdominal pain Diarrhea of presumed infectious origin Weight loss Alcohol-induced chronic pancreatitis (HCC) Procedures CT ABD/PEL WO IVCON CT ABD/PEL WO IVCON CT ABD & PELVIS W/O CONTRAST Marianna Wagner, SCREEN REPAIRER CRUSHER.PHYSICAL THERAPIST TECHNICIAN [address] [place] [address] [place] [address] Referral ID Status Reason Start Date Expiration Date Visits Requested Visits Authorized [id number] New Request Auto-Generat ed Referral 10/14/2023 11/12/2024 1 1 Specialty Diagnoses / Procedures Referred By Contac t Referred To Contact Gastroenterology Diagnoses Diarrhea of presumed infectious origin Generalized abdominal pain Procedures CONSULT TO GASTROENTEROLOGY OFFICE/OUTPATIENT [facility] 60 MINUTES Marianna Wagner, SCREEN REPAIRER CRUSHER.PHYSICAL THERAPIST TECHNICIAN [address] [place] [address] Referral ID Status Reason Start Date Expiration Date Visits Requested Visits Authorized [id number] Authorized PCP Requested Referral 09/24/2023 09/23/2024 1 1 Specialty Diagnoses / Procedures Referred By Contac t Referred To Contact [facility] Diagnoses Chronic diarrhea Weight loss Procedures CONSULT TO GASTROENTEROLOGY OFFICE/OUTPATIENT [facility] 60 MINUTES Marianna Wagner, SCREEN REPAIRER CRUSHER.PHYSICAL THERAPIST TECHNICIAN [address] [place] [address] [facility] GASTROENTEROLOGY [address] [place] [address] Referral ID Status Reason Start Date Expiration Date Visits Requested Visits Authorized [id number] Authorized PCP Requested Referral 08/09/2023 08/08/2024 1 1 Specialty Diagnoses / Procedures Referred By Jonathan moreira Referred To Contact [facility] Diagnoses Type 2 diabetes mellitus with complication, with long-term current use of insulin (HCC) Weight loss Procedures CONSULT TO ENDOCRINOLOGY OFFICE/OUTPATIENT [facility] 60 MINUTES Marianna Wagner APRN.PHYSICAL THERAPIST TECHNICIAN [address] [place] [address] Kell Richmond MD [address] [place] [address] Referral ID Status Reason Start Date Expiration Date Visits Requested Visits Authorized [id number] Authorized PCP Requested Referral 08/09/2023 08/08/2024 1 1 Additional Source Comments (unrecognized sect ion and content) No Status Records FoundNo Status Records FoundNo Status Records FoundNo Status Records FoundNo Status Records FoundNo Status Records FoundNo Status Records FoundNo Status Records FoundNo Status Records FoundNo Status Records Found INFORMATION SOURCE (unrecogn ized section and content) DATE CREATED AUTHOR 12/12/2017 [facility] DATE CREATED AUTHOR AUTHOR'S ORGANIZ ATION 04/08/2018 [facility] DATE CREATED AUTHOR AUTHOR'S ORGANIZ ATION 04/09/2023 [facility] DATE CREATED AUTHOR AUTHOR'S ORGANIZ ATION 03/24/2024 [facility] DATE CREATED AUTHOR AUTHOR'S ORGANIZ ATION 04/07/2024 [facility] DATE CREATED AUTHOR AUTHOR'S ORGANIZ ATION 07/18/2024 [facility] DATE CREATED AUTHOR AUTHOR'S ORGANIZ ATION 09/18/2024 [facility] DATE CREATED AUTHOR AUTHOR'S ORGANIZ ATION 12/09/2024 [facility] DATE CREATED AUTHOR AUTHOR'S ORGANIZ ATION 12/10/2024 [facility] DATE CREATED AUTHOR AUTHOR'S ORGANIZ ATION 12/21/2024 [facility] Goals (unrecognized section and content) Goals may be documented in a n alternate section Care Team (unrecognized sect ion and content) Care Team Personnel Name: ZOANDREAS TOWNSEND Viola SCREEN REPAIRER CRUSHER - PHYSICAL THERAPIST TECHNICIAN 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: Employed Provider Member Role: Primary Care Physician Address: Address: [address] [place], [place] [address] Care Team Related Persons Name: NARENDRA MELENDREZ Name: DARRINTERRA VERNON Care Teams (unrecognized sec tion and content) Team Status: Active Member Role Status Dates Marianna Wagner ORDER FULFILLMENT SPECIALIST, ORDER FULFILLMENT SPECIALIST-C Primary Care Provider Active Team Status: Inactive [...] 2024 End: June 28, 2024 Marianna Wagner ORDER FULFILLMENT SPECIALIST, ORDER FULFILLMENT SPECIALIST-C Primary Care Provider Active Start: June 25, [...] e Start: June 26, 2024 Marianna Wagner ORDER FULFILLMENT SPECIALIST, ORDER FULFILLMENT SPECIALIST-C Primary Care Provider Active Start: June 26, [...] e Start: June 26, 2024 Marianna Wagner ORDER FULFILLMENT SPECIALIST, ORDER FULFILLMENT SPECIALIST-C Primary Care Provider Active Start: June 26, [...] e Start: June 27, 2024 Mariannamandy Wagner ORDER FULFILLMENT SPECIALIST, ORDER FULFILLMENT SPECIALIST-C Primary Care Provider Active Start: June 27, 2024 Dr. Conrado Pro , DO Admit Provider Active Start: June 27, 2024 Dr. Conrado Pro , DO Other Provider Active Start: June 27, 2024 Dr. Melonie De La Rosa , DO Attending Provider Active S tart: June 27, 2024 Dr. Melonie De La oRsa , DO Other Provider Active Start : June 27, 2024 Team Status: Active Member Role Status Dates Dr. Rolan Romero , DO Referring Provider Activ e Start: June 27, 2024 Dr. Rolan Romero , DO Emergency Provider Activ e Start: June 27, 2024 Marianna Quedevyn ORDER FULFILLMENT SPECIALIST, ORDER FULFILLMENT SPECIALIST-C Primary Care Provider Active Start: June 27, [...] e Start: June 28, 2024 Marianna Queden ORDER FULFILLMENT SPECIALIST, ORDER FULFILLMENT SPECIALIST-C Primary Care Provider Active Start: June 28, [...] e Start: June 28, 2024 Marianna Wagner ORDER FULFILLMENT SPECIALIST, ORDER FULFILLMENT SPECIALIST-C Primary Care Provider Active Start: June 28, [...] Active Member Role Status Dates Marianna Wagner ORDER FULFILLMENT SPECIALIST, ORDER FULFILLMENT SPECIALIST-C Primary Care Provider Active Start: June 30, [...] Inactive Member Role Status Dates Marianna Wagner ORDER FULFILLMENT SPECIALIST, ORDER FULFILLMENT SPECIALIST-C Primary Care Provider Active Start: June 30, [...] Active Member Role Status Dates Marianna Wagner ORDER FULFILLMENT SPECIALIST, ORDER FULFILLMENT SPECIALIST-C Primary Care Provider Active Start: July 01, [...] Active Member Role Status Dates Marianna Wagner ORDER FULFILLMENT SPECIALIST, ORDER FULFILLMENT SPECIALIST-C Primary Care Provider Active Start: July 02, [...] Active Member Role Status Dates Marianna Wagner ORDER FULFILLMENT SPECIALIST, ORDER FULFILLMENT SPECIALIST-C Primary Care Provider Active Start: July 03, [...] Active Member Role Status Dates Marianna Wagner ORDER FULFILLMENT SPECIALIST, ORDER FULFILLMENT SPECIALIST-C Primary Care Provider Active Start: July 03, 2024 Dr. Yaneli Carbone MD Attending Provider Active Start: July 03, 2024 Team Status: Active Member Role Status Dates Marianna Fátima ORDER FULFILLMENT SPECIALIST, ORDER FULFILLMENT SPECIALIST-C Primary Care Provider Active Start: July 03, [...] Active Member Role Status Dates Marianna Fátima ORDER FULFILLMENT SPECIALIST, ORDER FULFILLMENT SPECIALIST-C Primary Care Provider Active Start: July 04, [...] Active Member Role Status Dates Marianna Fátima ORDER FULFILLMENT SPECIALIST, ORDER FULFILLMENT SPECIALIST-C Primary Care Provider Active Start: July 04, [...] Active Member Role Status Dates Marianna Wagner ORDER FULFILLMENT SPECIALIST, ORDER FULFILLMENT SPECIALIST-C Primary Care Provider Active Start: July 04, [...] Active Member Role Status Dates Marianna Wagner ORDER FULFILLMENT SPECIALIST, ORDER FULFILLMENT SPECIALIST-C Primary Care Provider Active Start: July 05, [...] Active Member Role Status Dates Marianna Wagner ORDER FULFILLMENT SPECIALIST, ORDER FULFILLMENT SPECIALIST-C Primary Care Provider Active Start: July 06, [...] Active Member Role Status Dates Marianna Wagner ORDER FULFILLMENT SPECIALIST, ORDER FULFILLMENT SPECIALIST-C Primary Care Provider Active Start: July 11, 2024 Dr. Perez Ribeiro , Emergency Provider Active Start: July 11, 2024 Dr. Melonie De La Rosa , DO Attending Provider Active S tart: July 11, 2024 Team Status: Active Member Role Status Dates Marianna Wagner ORDER FULFILLMENT SPECIALIST, ORDER FULFILLMENT SPECIALIST-C Primary Care Provider Active Start: July 11, [...] Active Member Role Status Dates Marianna Wagner ORDER FULFILLMENT SPECIALIST, ORDER FULFILLMENT SPECIALIST-C Primary Care Provider Active Start: July 12, [...] Active Member Role Status Dates Marianna Wagner ORDER FULFILLMENT SPECIALIST, ORDER FULFILLMENT SPECIALIST-C Primary Care Provider Active Start: July 12, [...] Active Member Role Status Dates Marianna Wagner ORDER FULFILLMENT SPECIALIST, ORDER FULFILLMENT SPECIALIST-C Primary Care Provider Active Start: July 13, [...] Active Member Role Status Dates Marianna Wagner ORDER FULFILLMENT SPECIALIST, ORDER FULFILLMENT SPECIALIST-C Primary Care Provider Active Start: July 13, [...] Star t: July 14, 2024 Sigrid Call [facility], DO Primary Care Provider Active Start: July 14, 2024 Team Status: Active Member Role Status Dates Andreas Pathak ORDER FULFILLMENT SPECIALIST, ORDER FULFILLMENT SPECIALIST-C Family Provider Activ e Andreas Pathak ORDER FULFILLMENT SPECIALIST, ORDER FULFILLMENT SPECIALIST-C Primary Care Provider Active Team Status: Active Member Role Status Dates Andreas Pathak ORDER FULFILLMENT SPECIALIST, ORDER FULFILLMENT SPECIALIST-C Primary Care Provider Active Dr. Vinh Lomeli MD Emergency Provider Active Dr. Iman Aguayo MD Admit Provider, Other Provider Active Dr. Conrado Morel MD Attending Provider, Other Provid er Active Team Status: Active Member Role Status Dates Andreas Pathak ORDER FULFILLMENT SPECIALIST, ORDER FULFILLMENT SPECIALIST-C Primary Care Provider Active Dr. Vinh Lomeli MD Emergency Provider Active Dr. Iman Aguayo MD Admit Provider, Other Provider Active Dr. Mateusz Dutton DO Attending Provider, Other Pro vider Active Dr. Conrado Morel MD Other Provider Active Team Status: Active Member Role Status Dates Andreas Pathak ORDER FULFILLMENT SPECIALIST, ORDER FULFILLMENT SPECIALIST-C Primary Care Provider Active Dr. Vinh Lomeli MD Emergency Provider Active Dr. Ashley Alvarado MD Admit Provider, Other Provider Active Dr. Iman Aguayo MD Attending Provider Active Team Status: Inactive Member Role Status Dates Andreas Pathak ORDER FULFILLMENT SPECIALIST, ORDER FULFILLMENT SPECIALIST-C Primary Care Provider Active Dr. Vinh Lomeli MD Emergency Provider Active Dr. Iman Aguayo MD Admit Provider, Other Provider Active Dr. Mateusz Dutton DO Attending Provider Active Dr. Conrado Morel MD Other Provider Active Team Status: Active Member Role Status Dates Andreas Pathak ORDER FULFILLMENT SPECIALIST, ORDER FULFILLMENT SPECIALIST-C Primary Care Provider Active Dr. Vinh Lomeli MD Emergency Provider Active Dr. Iman Aguayo MD Admit Provider, Attending Prov ider Active Team Status: Active Member Role Status Dates Andreas Pathak ORDER FULFILLMENT SPECIALIST, ORDER FULFILLMENT SPECIALIST-C Primary Care Provider Active Dr. Vinh Lomeli MD Emergency Provider Active Dr. Iman Aguayo MD Admit Provider, Other Provider Active Dr. Mateusz Dutton , DO Attending Provider, Other Pro vider Active Team Status: Inactive Member Role Status Dates Andreas Pathak ORDER FULFILLMENT SPECIALIST, ORDER FULFILLMENT SPECIALIST-C Primary Care Provider Active Dr. Vinh Lomeli MD Emergency Provider Active Dr. Iman Aguayo MD Admit Provider, Other Provider Active Dr. Mateusz Dutton , DO Attending Provider Active Team Status: Inactive Member Role Status Dates Andreas Pathak ORDER FULFILLMENT SPECIALIST, ORDER FULFILLMENT SPECIALIST-C Primary Care Provider Active Dr. Sinan Abarca , Attending Provider, Emergency Provider Active Team Status: Inactive Member Role Status Dates Andreas Pathak ORDER FULFILLMENT SPECIALIST, ORDER FULFILLMENT SPECIALIST-C Primary Care Provider Active Dr. Vinh Lomeli MD Emergency Provider Active Team Status: Inactive Member Role Status Dates Andreas Pathak ORDER FULFILLMENT SPECIALIST, ORDER FULFILLMENT SPECIALIST-C Primary Care Provider Active Dr. Trung Bob MD Attending Provider Active Team Status: Active Member Role Status Dates Andreas Pathak ORDER FULFILLMENT SPECIALIST, ORDER FULFILLMENT SPECIALIST-C Primary Care Provider Active Dr. Chris Call DO Emergency Provider Active Dr. Lucas Frausto MD Admit Provider, Attending Provider Active Team Status: Active Member Role Status Dates Andreas Pathak ORDER FULFILLMENT SPECIALIST, ORDER FULFILLMENT SPECIALIST-C Primary Care Provider Active Dr. Chris Call DO Emergency Provider Active Dr. Lucas Frausto MD Admit Provi mary lou, Attending Provider, Other Provider Active Team Status: Active Member Role Status Dates Andreas Pathak ORDER FULFILLMENT SPECIALIST, ORDER FULFILLMENT SPECIALIST-C Primary Care Provider Active Dr. Chris Call DO Emergency Provider Active Dr. Lucas Frausto MD Admit Provider, Other Pro vider Active Dr. Ashley Alvarado MD Attending Provider, Other Prov ider Active Team Status: Inactive Member Role Status Dates Andreas Pathak ORDER FULFILLMENT SPECIALIST, ORDER FULFILLMENT SPECIALIST-C Primary Care Provider Active Dr. Chris Call , DO Emergency Provider Active Dr. Lucas Frausto MD Admit Provider, Other Pro vider Active Dr. Ashley Alvarado MD Attending Provider Active Team Status: Active Member Role Status Dates Andreas Pathak ORDER FULFILLMENT SPECIALIST, ORDER FULFILLMENT SPECIALIST-C Primary Care Provider Active Dr. Carlos Augustin MD Emergency Provider Active Dr. Conrado Pro DO Admit Provider, Attending Pr ovider Active Team Status: Active Member Role Status Dates Andreas Pathak ORDER FULFILLMENT SPECIALIST, ORDER FULFILLMENT SPECIALIST-C Primary Care Provider Active Dr. Carlos Augustin [...] Jose Pacheco MD Other Provider Active Dr. Maruqez Elmore MD Other Provider Active Dr. Bronson Peterson MD Other Provider Active Dr. Toni Dodge MD Other Provider Active Team Status: Active Member Role Status Dates Andreas Pathak ORDER FULFILLMENT SPECIALIST, ORDER FULFILLMENT SPECIALIST-C Primary Care Provider Active Dr. Carlos Augustin [...] Active Member Role Status Cam Pathak NP, ORDER FULFILLMENT SPECIALIST-C Primary Care Provider Active Dr. Carlos Augustin [...] Active Member Role Status Dates Andreas Pathak ORDER FULFILLMENT SPECIALIST, ORDER FULFILLMENT SPECIALIST-C Primary Care Provider Active Dr. Carlos Augustin MD Emergency Provider Active Dr. Conrado Pro DO Admit Provider, Other Provid er Active Dr. Conrado Morel MD Referring Provider, Other Provid er Active Dr. Barry Sheehan DO Attending Provider Active Team Status: Active Member Role Status Dates Andreas Pathak ORDER FULFILLMENT SPECIALIST, ORDER FULFILLMENT SPECIALIST-C Primary Care Provider Active Dr. Carlos Augustin MD Emergency Provider Active Dr. Conrado Pro DO Admit Provider, Other Provid er Active Dr. Conrado Morel MD Attending Provider, Other Provid er Active Dr. Maya Melo MD Other Provider Active Team Status: Active Member Role Status Dates Andreas Pathak ORDER FULFILLMENT SPECIALIST, ORDER FULFILLMENT SPECIALIST-C Primary Care Provider Active Dr. Carlos Augustin MD Emergency Provider Active Dr. Conrado Pro DO Admit Provider, Other Provid er Active Dr. Maya Melo MD Other Provider Active Dr. Refugio Rojas MD Attending Provider, Other Provi mary lou Active Dr. Conrado Morel MD Other Provider Active Team Status: Inactive Member Role Status Dates Andreas Pathak ORDER FULFILLMENT SPECIALIST, ORDER FULFILLMENT SPECIALIST-C Primary Care Provider Active Dr. Carlos Augustin MD Emergency Provider Active Dr. Conrado Pro DO Admit Provider, Other Provid er Active Dr. Maya Melo MD Other Provider Active Dr. Refugio Rojas MD Attending Provider Active Dr. Conrado Morel MD Other Provider Active High Pressure Kettle Operator Relationship Specialty Start Date End Date Marianna Wagner, SCREEN REPAIRER CRUSHER.PHYSICAL THERAPIST TECHNICIAN [address] [facility], [place] [id number] PCP - General Family Medicine 08/09/23 Trung Bob MD [address] [place], [place] [id number] Physician Cardiology 06/10/18 High Pressure Kettle Operator Relationship Specialty Start Date End Date Marianna Wagner, SCREEN REPAIRER CRUSHER.PHYSICAL THERAPIST TECHNICIAN [address] [facility], [place] [id number] PCP - General Family Medicine 08/09/23 Trung Bob MD [address] [place], [place] [address] Physician Cardiology 06/10/18 High Pressure Kettle Operator Relationship Specialty Start Date End Date Marianna Wagner, SCREEN REPAIRER CRUSHER.PHYSICAL THERAPIST TECHNICIAN [address] [facility], [place] [id number] PCP - General Family Medicine 08/09/23 Trung Bob MD [address] [place], [place] [id number] Physician Cardiology 06/10/18 High Pressure Kettle Operator Relationship Specialty Start Date End Date Marianna Wagner, SCREEN REPAIRER CRUSHER.PHYSICAL THERAPIST TECHNICIAN [address] [facility], [place] [id number] PCP - General Family Medicine 08/09/23 Trung Bob MD [address] [place], [place] [phone] Physician Cardiology 06/10/18 High Pressure Kettle Operator Relationship Specialty Start Date End Date Marianna Wagner, SCREEN REPAIRER CRUSHER.PHYSICAL THERAPIST TECHNICIAN [address] [place], [place] [id number] PCP - General Family Medicine 08/09/23 Trung Bob MD [address] [place], [place] [address] Physician Cardiology 06/10/18 High Pressure Kettle Operator Relationship Specialty Start Date End Date Marianna Wagner, SCREEN REPAIRER CRUSHER.PHYSICAL THERAPIST TECHNICIAN [address] [place], [place] [id number] PCP - General Family Medicine 08/09/23 Trung Bob MD [address] [place] [address] Physician Cardiology 06/10/18 High Pressure Kettle Operator Relationship Specialty Start Date End Date Marianna Wagner, SCREEN REPAIRER CRUSHER.PHYSICAL THERAPIST TECHNICIAN [address] [place] [address] PCP - General Family Medicine 08/09/23 Trung Bob MD [address] [place], [place] [address] Physician Cardiology 06/10/18 High Pressure Kettle Operator Relationship Specialty Start Date End Date Marianna Wagner, SCREEN REPAIRER CRUSHER.PHYSICAL THERAPIST TECHNICIAN [address] [place], [place] [id number] PCP - General Family Medicine 08/09/23 Trung Bob MD [address] [phone] Physician Cardiology 06/10/18 High Pressure Kettle Operator Relationship Specialty Start Date End Date Marianna Wagner, SCREEN REPAIRER CRUSHER.PHYSICAL THERAPIST TECHNICIAN [address] [facility] [place] [id number] PCP - General Family Medicine 08/09/23 Trung Bob MD [address] [phone] Physician Cardiology 06/10/18 High Pressure Kettle Operator Relationship Specialty Start Date End Date Marianna Wagner, SCREEN REPAIRER CRUSHER.PHYSICAL THERAPIST TECHNICIAN [address] [place] [address] PCP - General Family Medicine 08/09/23 Trung Bob MD [address] [address] Physician Cardiology 06/10/18 High Pressure Kettle Operator Relationship Specialty Start Date End Date Marianna Wagner, SCREEN REPAIRER CRUSHER.PHYSICAL THERAPIST TECHNICIAN [address] [place] [address] PCP - General Family Medicine 08/09/23 Trung Bob MD [address] [address] Physician Cardiology 06/10/18 High Pressure Kettle Operator Relationship Specialty Start Date End Date Marianna Wagner SCREEN REPAIRER CRUSHER.PHYSICAL THERAPIST TECHNICIAN [address] [facility], [place] [id number] PCP - General Family Medicine 08/09/23 Trung Bob MD [address] [place], [place] [address] Physician Cardiology 06/10/18 High Pressure Kettle Operator Relationship Specialty Start Date End Date Marianna Wagner SCREEN REPAIRER CRUSHER.PHYSICAL THERAPIST TECHNICIAN [address] [facility], [place] [phone] PCP - General Family Medicine 08/09/23 Trung Bob MD [address] [place], [place] [address] Physician Cardiology 06/10/18 High Pressure Kettle Operator Relationship Specialty Start Date End Date Marianna Wagner, SCREEN REPAIRER CRUSHER.PHYSICAL THERAPIST TECHNICIAN [address] [place] [address] PCP - General Family Medicine 08/09/23 Trung Bob MD [address] [place] [address], [place] [address] Physician Cardiology 06/10/18 High Pressure Kettle Operator Relationship Specialty Start Date End Date Marianna Wagner SCREEN REPAIRER CRUSHER.PHYSICAL THERAPIST TECHNICIAN [address] [facility] [place] [address] PCP - General Family Medicine 08/09/23 Trung Bob MD [address] [place] [address] Physician Cardiology 06/10/18 High Pressure Kettle Operator Relationship Specialty Start Date End Date Marianna Wagner SCREEN REPAIRER CRUSHER.PHYSICAL THERAPIST TECHNICIAN [address] [facility] [address] [address] [place] [phone] PCP - General Family Medicine 08/09/23 Trung Bob MD [address] [place] [address] Physician Cardiology 06/10/18 High Pressure Kettle Operator Relationship Specialty Start Date End Date Marianna Wagner SCREEN REPAIRER CRUSHER.PHYSICAL THERAPIST TECHNICIAN [address] [place] [address] PCP - General Family Medicine 08/09/23 Trung Bob MD [address] [address] Physician Cardiology 06/10/18 High Pressure Kettle Operator Relationship Specialty Start Date End Date Marianna Wagner, SCREEN REPAIRER CRUSHER.PHYSICAL THERAPIST TECHNICIAN [address] [place] [address] PCP - General Family Medicine 08/09/23 Trung Bob MD [address] [address] Physician Cardiology 06/10/18 High Pressure Kettle Operator Relationship Specialty Start Date End Date Marianna Wagner, SCREEN REPAIRER CRUSHER.PHYSICAL THERAPIST TECHNICIAN [address] [place] [address] PCP - General Family Medicine 08/09/23 Trung Bob MD [address] [address] Physician Cardiology 06/10/18 High Pressure Kettle Operator Relationship Specialty Start Date End Date Marianna Wagner SCREEN REPAIRER CRUSHER.PHYSICAL THERAPIST TECHNICIAN [address] [place], [place] [id number] PCP - General Family Medicine 08/09/23 Trung Bob MD [address] [place] [address] Physician Cardiology 06/10/18 High Pressure Kettle Operator Relationship Specialty Start Date End Date Marianna Wagner SCREEN REPAIRER CRUSHER.PHYSICAL THERAPIST TECHNICIAN [address] [place] [address] PCP - General Family Medicine 08/09/23 Trung Bob MD [address] [place], [place] [id number] Physician Cardiology 06/10/18 High Pressure Kettle Operator Relationship Specialty Start Date End Date Marianna Wagner, SCREEN REPAIRER CRUSHER.PHYSICAL THERAPIST TECHNICIAN [address], [place] [phone] PCP - General Family Medicine 08/09/23 Trung Bob MD [address] [id number] Physician Cardiology 06/10/18 High Pressure Kettle Operator Relationship Specialty Start Date End Date Marianna Wagner, SCREEN REPAIRER CRUSHER.PHYSICAL THERAPIST TECHNICIAN [address] [place] [address] PCP - General Family Medicine 08/09/23 Trung Bob MD [address] [address] Physician Cardiology 06/10/18 High Pressure Kettle Operator Relationship Specialty Start Date End Date Marianna Wagner SCREEN REPAIRER CRUSHER.PHYSICAL THERAPIST TECHNICIAN [address] [place], [place] [phone] PCP - General Family Medicine 08/09/23 Trung Bob MD [address] [place], [place] [address] Physician Cardiology 06/10/18 High Pressure Kettle Operator Relationship Specialty Start Date End Date Marianna Wagner, SCREEN REPAIRER CRUSHER.PHYSICAL THERAPIST TECHNICIAN [address] [place] [address] PCP - General Family Medicine 08/09/23 Trung Bob MD [address] [place], [place] [phone] Physician Cardiology 06/10/18 High Pressure Kettle Operator Relationship Specialty Start Date End Date Marianna Wagner, SCREEN REPAIRER CRUSHER.PHYSICAL THERAPIST TECHNICIAN [address] [facility], [place] [phone] PCP - General Family Medicine 08/09/23 Trung Bob MD [address] [place], [place] [phone] Physician Cardiology 06/10/18 High Pressure Kettle Operator Relationship Specialty Start Date End Date Marianna Wagner, SCREEN REPAIRER CRUSHER.PHYSICAL THERAPIST TECHNICIAN [address] [facility], [place] [phone] PCP - General Family Medicine 08/09/23 Trung Bob MD [address] [place], [place] [address] Physician Cardiology 06/10/18 High Pressure Kettle Operator Relationship Specialty Start Date End Date Marianna Wagner, SCREEN REPAIRER CRUSHER.PHYSICAL THERAPIST TECHNICIAN [address] [place] [address] PCP - General Family Medicine 08/09/23 Trung Bob MD [address] [place], [place] [address] Physician Cardiology 06/10/18 High Pressure Kettle Operator Relationship Specialty Start Date End Date Marianna Wagner, SCREEN REPAIRER CRUSHER.PHYSICAL THERAPIST TECHNICIAN [address] [facility] [place] [address] PCP - General Family Medicine 08/09/23 Trung Bob MD [address] [place], [place] [address] Physician Cardiology 06/10/18 High Pressure Kettle Operator Relationship Specialty Start Date End Date Marianna Wagner, SCREEN REPAIRER CRUSHER.PHYSICAL THERAPIST TECHNICIAN [address], [place] [phone] PCP - General Family Medicine 08/09/23 Trung Bob MD [address] [place], [place] [phone] Physician Cardiology 06/10/18 Team Status: Active Member Role Status Dates Dr. Rolan Romero , DO Referring Provider Activ e Start: June 25, 2024 Dr. Rolan Romero , DO Emergency Provider Activ e Start: June 25, 2024 Marianna Wagner ORDER FULFILLMENT SPECIALIST, ORDER FULFILLMENT SPECIALIST-C Primary Care Provider Active Start: June 25, [...] e Start: June 26, 2024 Marianna Wagner ORDER FULFILLMENT SPECIALIST, ORDER FULFILLMENT SPECIALIST-C Primary Care Provider Active Start: June 26, [...] e Start: June 27, 2024 Marianna Wagner ORDER FULFILLMENT SPECIALIST, ORDER FULFILLMENT SPECIALIST-C Primary Care Provider Active Start: June 27, [...] e Start: June 28, 2024 Marianna Wagner ORDER FULFILLMENT SPECIALIST, ORDER FULFILLMENT SPECIALIST-C Primary Care Provider Active Start: June 28, [...] Active Member Role Status Dates Marianna Wagner ORDER FULFILLMENT SPECIALIST, ORDER FULFILLMENT SPECIALIST-C Primary Care Provider Active Start: July 02, [...] Active Member Role Status Dates Marianna Wagner ORDER FULFILLMENT SPECIALIST, ORDER FULFILLMENT SPECIALIST-C Primary Care Provider Active Start: July 03, [...] Active Member Role Status Dates Marianna Wagner ORDER FULFILLMENT SPECIALIST, ORDER FULFILLMENT SPECIALIST-C Primary Care Provider Active Start: July 04, [...] Active Member Role Status Dates Marianna Wagner ORDER FULFILLMENT SPECIALIST, ORDER FULFILLMENT SPECIALIST-C Primary Care Provider Active Start: July 05, [...] Active Member Role Status Dates Marianna Wagner ORDER FULFILLMENT SPECIALIST, ORDER FULFILLMENT SPECIALIST-C Primary Care Provider Active Start: July 06, [...] Provider Active Star t: July 06, 2024 High Pressure Kettle Operator Relationship Specialty Start Date End Date Marianna Wagner APRN.PHYSICAL THERAPIST TECHNICIAN [address] [place] [address] PCP - General Family Medicine 08/09/23 Trung Bob MD [address] [address] Physician Cardiology 06/10/18 Radha Etienne, ELIS Primary Care Electronics Supervisor 07/07/24 High Pressure Kettle Operator Relationship Specialty Start Date End Date Josseline Call DO [address] [facility] [place] [address] PCP - General Family Medicine 07/11/24 [facility]ung [facility] [address] [facility] [address] [address] Physician Cardiology 06/10/18 Radha Etienne, RN Primary Care Electronics Supervisor 07/17/24 07/17/24 High Pressure Kettle Operator Relationship Specialty Start Date End Date Marianna Wagner SCREEN REPAIRER CRUSHER.PHYSICAL THERAPIST TECHNICIAN [address] [place] [address] PCP - General Family Medicine 08/09/23 Trung Bob MD [address] [phone] Physician Cardiology 06/10/18 Radha Etienne, RN Primary Care Electronics Supervisor 07/07/24 Team Status: Inactive Member Role Status Dates Sigrid Call [facility] Primary Care Provider Active Start: July 20, 2024 End: July 20, 2024 Dr. Trung Bob MD Attending Provider Active S tart: July 20, 2024 End: July 20, 2024 Team Status: Active Member Role Status Dates Marianna Wagner ORDER FULFILLMENT SPECIALIST, ORDER FULFILLMENT SPECIALIST-C Primary Care Provider Active Start: July 12, [...] Provider Active Start : August 03, 2024 High Pressure Kettle Operator Relationship Specialty Start Date End Date Josseline Call Fawad, DO [address] [place] [address] PCP - General Family Medicine 07/11/24 Trung Bob MD [address] [address] Physician Cardiology 06/10/18 High Pressure Kettle Operator Relationship Specialty Start Date End Date Josseline Call DO [address] [place] [address] PCP - General Family Medicine 07/11/24 Trung Bob MD [address] [address] Physician Cardiology 06/10/18 Team Status: Active Member Role/Relationship Status Dates Sigrid GARZA, DO Primary Care Provider Active Team Status: Inactive Member Role/Relationship Status Dates Dr. Rolan Klusty-Kai , DO Referring Provider Activ e Start: June 25, 2024 End: June 28, 2024 Dr. Rolan Romero , DO Emergency Provider Activ e Start: June 25, 2024 End: June 28, 2024 Marianna Wagner ORDER FULFILLMENT SPECIALIST, ORDER FULFILLMENT SPECIALIST-C Primary Care Provider Active Start: June 25, [...] Activ e Start: June 26, 2024 Marianna aWgner ORDER FULFILLMENT SPECIALIST, ORDER FULFILLMENT SPECIALIST-C Primary Care Provider Active Start: June 26, 2024 Dr. Conrado Pro , DO Admit Provider Active Start: June 26, 2024 Dr. Conrado Pro , DO Other Provider Active Start: June 26, 2024 Dr. Melonie De La Rosa , DO Attending Provider Active S tart: June 26, 2024 Dr. eMlonie De La Rosa , DO Other Provider Active Start : June 26, 2024 Team Status: Active Member Role/Relationship Status Dates Dr. Rolan Romero , DO Referring Provider Activ e Start: June 26, 2024 Dr. Rolan Romero , DO Emergency Provider Activ e Start: June 26, 2024 Marianna Wagner ORDER FULFILLMENT SPECIALIST, ORDER FULFILLMENT SPECIALIST-C Primary Care Provider Active Start: June 26, [...] e Start: June 27, 2024 Marianna Wagner ORDER FULFILLMENT SPECIALIST, ORDER FULFILLMENT SPECIALIST-C Primary Care Provider Active Start: June 27, [...] e Start: June 27, 2024 Marianna Wagner ORDER FULFILLMENT SPECIALIST, ORDER FULFILLMENT SPECIALIST-C Primary Care Provider Active Start: June 27, [...] e Start: June 28, 2024 Marianna Wagner ORDER FULFILLMENT SPECIALIST, ORDER FULFILLMENT SPECIALIST-C Primary Care Provider Active Start: June 28, [...] e Start: June 28, 2024 Marianna Wagner ORDER FULFILLMENT SPECIALIST, ORDER FULFILLMENT SPECIALIST-C Primary Care Provider Active Start: June 28, [...] Active Member Role/Relationship Status Dates Marianna Wagner ORDER FULFILLMENT SPECIALIST, ORDER FULFILLMENT SPECIALIST-C Primary Care Provider Active Start: June 30, [...] Inactive Member Role/Relationship Status Dates Marianna Wagner ORDER FULFILLMENT SPECIALIST, ORDER FULFILLMENT SPECIALIST-C Primary Care Provider Active Start: June 30, [...] 30, 2024 End: July 06, 2024 Dr. aYneli Carbone MD Other Provider Active Star t: June 30, 2024 End: July 06, 2024 Team Status: Active Member Role/Relationship Status Dates Marianna Wagner ORDER FULFILLMENT SPECIALIST, ORDER FULFILLMENT SPECIALIST-C Primary Care Provider Active Start: July 01, [...] Active Member Role/Relationship Status Dates Marianna Fátima ORDER FULFILLMENT SPECIALIST, ORDER FULFILLMENT SPECIALIST-C Primary Care Provider Active Start: July 02, [...] Active Member Role/Relationship Status Dates Marianna Fátima ORDER FULFILLMENT SPECIALIST, ORDER FULFILLMENT SPECIALIST-C Primary Care Provider Active Start: July 03, [...] Active Member Role/Relationship Status Dates Marianna Fátima ORDER FULFILLMENT SPECIALIST, ORDER FULFILLMENT SPECIALIST-C Primary Care Provider Active Start: July 03, 2024 Dr. Yaneli Carbone MD Attending Provider Active Start: July 03, 2024 Team Status: Active Member Role/Relationship Status Dates Marianna Fátima ORDER FULFILLMENT SPECIALIST, ORDER FULFILLMENT SPECIALIST-C Primary Care Provider Active Start: July 03, [...] Active Member Role/Relationship Status Dates Marianna Wagner ORDER FULFILLMENT SPECIALIST, ORDER FULFILLMENT SPECIALIST-C Primary Care Provider Active Start: July 04, [...] Active Member Role/Relationship Status Dates Marianna Wagner ORDER FULFILLMENT SPECIALIST, ORDER FULFILLMENT SPECIALIST-C Primary Care Provider Active Start: July 04, [...] Active Member Role/Relationship Status Dates Marianna Wagner ORDER FULFILLMENT SPECIALIST, ORDER FULFILLMENT SPECIALIST-C Primary Care Provider Active Start: July 04, [...] Active Member Role/Relationship Status Dates Marianna Wagner ORDER FULFILLMENT SPECIALIST, ORDER FULFILLMENT SPECIALIST-C Primary Care Provider Active Start: July 05, 2024 Dr. Naerndra Gonzalez , DO Emergency Provider Active Start: [...] Active Member Role/Relationship Status Dates Marianna Wagner ORDER FULFILLMENT SPECIALIST, ORDER FULFILLMENT SPECIALIST-C Primary Care Provider Active Start: July 06, 2024 Dr. Narendra Gonzalez , DO Emergency Provider Active Start: July 06, 2024 Dr. Conrado Pro , DO Admit Provider Active Start: July 06, 2024 Dr. Conrado Por , DO Other Provider Active Start: July [...] Active Member Role/Relationship Status Dates Marianna Wagner ORDER FULFILLMENT SPECIALIST, ORDER FULFILLMENT SPECIALIST-C Primary Care Provider Active Start: July 11, [...] 2024 End: July 14, 2024 Sigrid Call [facility], DO Primary Care Provider Active Start: July 11, 2024 End: July 14, 2024 Team Status: Active Member Role/Relationship Status Dates Marianna Wagner ORDER FULFILLMENT SPECIALIST, ORDER FULFILLMENT SPECIALIST-C Primary Care Provider Active Start: July 12, [...] Active Member Role/Relationship Status Dates Marianna Wagner ORDER FULFILLMENT SPECIALIST, ORDER FULFILLMENT SPECIALIST-C Primary Care Provider Active Start: July 12, [...] Active Member Role/Relationship Status Dates Marianna Wagner ORDER FULFILLMENT SPECIALIST, ORDER FULFILLMENT SPECIALIST-C Primary Care Provider Active Start: July 13, [...] Active Member Role/Relationship Status Dates Marianna Wagner ORDER FULFILLMENT SPECIALIST, ORDER FULFILLMENT SPECIALIST-C Primary Care Provider Active Start: July 13, [...] Active Start: August 02, 2024 Dr. Tierney Macdoanld DO Emergency Provider Active Start: August 02, [...] Inactive Member Role/Relationship Status Dates Sigrid Jakub [facility], DO Primary Care Provider Active Start: August [...] 29, 2024 End: September 04, 2024 Dr. Robisnon Madrid MD Other Provider Active Start: August [...] Active Member Role/Relationship Status Dates Sigrid Call [facility], DO Primary Care Provider Active Start: August [...] Active Member Role/Relationship Status Dates Sigrid Call [facility], DO Primary Care Provider Active Start: August [...] Active Member Role/Relationship Status Dates Sigrid Call [facility], DO Primary Care Provider Active Start: August [...] Active Member Role/Relationship Status Dates Sigrid Yaner [facility], DO Primary Care Provider Active Start: August [...] Active Member Role/Relationship Status Dates Sigrid Yaner [facility], DO Primary Care Provider Active Start: September [...] Active Member Role/Relationship Status Dates Sigrid Call [facility], Primary Care Provider Active Start: September 01, [...] Active Member Role/Relationship Status Dates Sigrid Call [facility], DO Primary Care Provider Active Start: September [...] Active Member Role/Relationship Status Dates Sigrid Call [facility], DO Primary Care Provider Active Start: September [...] Active St art: September 01, 2024 Dr. Abidrahman Gardner MD Other Provider Active Start: September [...] Active Member Role/Relationship Status Dates Sigrid Call [facility] Primary Care Provider Active Start: September 02, [...] Active Member Role/Relationship Status Dates Sigrid Call [facility], DO Primary Care Provider Active Start: September [...] Active Member Role/Relationship Status Dates Sigrid Call [facility], Primary Care Provider Active Start: September 04, [...] Inactive Member Role/Relationship Status Dates Sigrid Call [facility], DO Primary Care Provider Active Start: October 10, 2024 End: October 10, 2024 Sigrid Call [facility] Referring Provider Active Start: October 10, 2024 End: October 10, 2024 Heather Daley ORDER FULFILLMENT SPECIALIST, ORDER FULFILLMENT SPECIALIST-C Attending Provider Active Start: October 10, 2024 End: October 10, 2024 Team Status: Active Member Role/Relationship Status Dates Sigrid Call [facility], DO Primary Care Provider Active Start: October 12, 2024 Dr. Perez Ribeiro DO Emergency Provider Active Start: October 12, 2024 Dr. Diana Willoughby MD Admit Provider Active Star t: October 12, 2024 Dr. Diana Willoughby MD Attending Provider Active Start: October 12, 2024 Dr. Diana Willoughby MD Other Provider Active Star t: October 12, 2024 High Pressure Kettle Operator Relationship Specialty Start Date End Date Josseline Call DO [address] [place] [address] PCP - General Family Medicine 07/11/24 Trung Bob MD [address] [address] Physician Cardiology 06/10/18 High Pressure Kettle Operator Relationship Specialty Start Date End Date Josseline Call DO [address] [place] [address] PCP - General Family Medicine 07/11/24 Trung Bob MD [address] [place] [id number] Physician Cardiology 06/10/18 Source Comments (unrecognize d section and content) In the event this informatio n is protected by the Federal Confidentiality of Alcohol and Drug Abuse Patient Records regulations: The Federal rules restrict any use of the information to criminally investigate or prosecute any alcohol or drug abuse patient.[facility] Center[facility] the event this information is protected by the Federal Confidentiality of Alcohol and Drug Abuse Patient Records regulations: The Federal rules restrict any use of the information to criminally investigate or prosecute any alcohol or drug abuse patient.[facility] CenterIn the event this information is protected by the Federal Confidentiality of Alcohol and Drug Abuse Patient Records regulations: The Federal rules restrict any use of the information to criminally investigate or prosecute any alcohol or drug abuse patient.[facility] CenterIn the event this information is protected by the Federal Confidentiality of Alcohol and Drug Abuse Patient Records regulations: The Federal rules restrict any use of the information to criminally investigate or prosecute any alcohol or drug abuse patient.[facility] CenterIn the event this information is protected by the Federal Confidentiality of Alcohol and Drug Abuse Patient Records regulations: The Federal rules restrict any use of the information to criminally investigate or prosecute any alcohol or drug abuse patient.[facility] CenterIn the event this information is protected by the Federal Confidentiality of Alcohol and Drug Abuse Patient Records regulations: The Federal rules restrict any use of the information to criminally investigate or prosecute any alcohol or drug abuse patient.[facility] CenterIn the event this information is protected by the Federal Confidentiality of Alcohol and Drug Abuse Patient Records regulations: The Federal rules restrict any use of the information to criminally investigate or prosecute any alcohol or drug abuse patient.[facility] CenterIn the event this information is protected by the Federal Confidentiality of Alcohol and Drug Abuse Patient Records regulations: The Federal rules restrict any use of the information to criminally investigate or prosecute any alcohol or drug abuse patient.[facility] CenterIn the event this information is protected by the Federal Confidentiality of Alcohol and Drug Abuse Patient Records regulations: The Federal rules restrict any use of the information to criminally investigate or prosecute any alcohol or drug abuse patient.[facility] CenterIn the event this information is protected by the Federal Confidentiality of Alcohol and Drug Abuse Patient Records regulations: The Federal rules restrict any use of the information to criminally investigate or prosecute any alcohol or drug abuse patient.[facility] CenterIn the event this information is protected by the Federal Confidentiality of Alcohol and Drug Abuse Patient Records regulations: The Federal rules restrict any use of the information to criminally investigate or prosecute any alcohol or drug abuse patient.[facility] CenterIn the event this information is protected by the Federal Confidentiality of Alcohol and Drug Abuse Patient Records regulations: The Federal rules restrict any use of the information to criminally investigate or prosecute any alcohol or drug abuse patient.[facility] CenterIn the event this information is protected by the Federal Confidentiality of Alcohol and Drug Abuse Patient Records regulations: The Federal rules restrict any use of the information to criminally investigate or prosecute any alcohol or drug abuse patient.[facility] CenterIn the event this information is protected by the Federal Confidentiality of Alcohol and Drug Abuse Patient Records regulations: The Federal rules restrict any use of the information to criminally investigate or prosecute any alcohol or drug abuse patient.[facility] CenterIn the event this information is protected by the Federal Confidentiality of Alcohol and Drug Abuse Patient Records regulations: The Federal rules restrict any use of the information to criminally investigate or prosecute any alcohol or drug abuse patient.[facility] CenterIn the event this information is protected by the Federal Confidentiality of Alcohol and Drug Abuse Patient Records regulations: The Federal rules restrict any use of the information to criminally investigate or prosecute any alcohol or drug abuse patient.[facility] CenterIn the event this information is protected by the Federal Confidentiality of Alcohol and Drug Abuse Patient Records regulations: The Federal rules restrict any use of the information to criminally investigate or prosecute any alcohol or drug abuse patient.[facility] CenterIn the event this information is protected by the Federal Confidentiality of Alcohol and Drug Abuse Patient Records regulations: The Federal rules restrict any use of the information to criminally investigate or prosecute any alcohol or drug abuse patient.[facility] CenterIn the event this information is protected by the Federal Confidentiality of Alcohol and Drug Abuse Patient Records regulations: The Federal rules restrict any use of the information to criminally investigate or prosecute any alcohol or drug abuse patient.[facility] CenterIn the event this information is protected by the Federal Confidentiality of Alcohol and Drug Abuse Patient Records regulations: The Federal rules restrict any use of the information to criminally investigate or prosecute any alcohol or drug abuse patient.[facility] CenterIn the event this information is protected by the Federal Confidentiality of Alcohol and Drug Abuse Patient Records regulations: The Federal rules restrict any use of the information to criminally investigate or prosecute any alcohol or drug abuse patient.[facility] CenterIn the event this information is protected by the Federal Confidentiality of Alcohol and Drug Abuse Patient Records regulations: The Federal rules restrict any use of the information to criminally investigate or prosecute any alcohol or drug abuse patient.[facility] CenterIn the event this information is protected by the Federal Confidentiality of Alcohol and Drug Abuse Patient Records regulations: The Federal rules restrict any use of the information to criminally investigate or prosecute any alcohol or drug abuse patient.[facility] CenterIn the event this information is protected by the Federal Confidentiality of Alcohol and Drug Abuse Patient Records regulations: The Federal rules restrict any use of the information to criminally investigate or prosecute any alcohol or drug abuse patient.[facility] CenterIn the event this information is protected by the Federal Confidentiality of Alcohol and Drug Abuse Patient Records regulations: The Federal rules restrict any use of the information to criminally investigate or prosecute any alcohol or drug abuse patient.[facility] CenterIn the event this information is protected by the Federal Confidentiality of Alcohol and Drug Abuse Patient Records regulations: The Federal rules restrict any use of the information to criminally investigate or prosecute any alcohol or drug abuse patient.[facility] CenterIn the event this information is protected by the Federal Confidentiality of Alcohol and Drug Abuse Patient Records regulations: The Federal rules restrict any use of the information to criminally investigate or prosecute any alcohol or drug abuse patient.[facility] CenterIn the event this information is protected by the Federal Confidentiality of Alcohol and Drug Abuse Patient Records regulations: The Federal rules restrict any use of the information to criminally investigate or prosecute any alcohol or drug abuse patient.[facility] CenterIn the event this information is protected by the Federal Confidentiality of Alcohol and Drug Abuse Patient Records regulations: The Federal rules restrict any use of the information to criminally investigate or prosecute any alcohol or drug abuse patient.[facility] CenterIn the event this information is protected by the Federal Confidentiality of Alcohol and Drug Abuse Patient Records regulations: The Federal rules restrict any use of the information to criminally investigate or prosecute any alcohol or drug abuse patient.[facility] CenterIn the event this information is protected by the Federal Confidentiality of Alcohol and Drug Abuse Patient Records regulations: The Federal rules restrict any use of the information to criminally investigate or prosecute any alcohol or drug abuse patient.[facility] CenterIn the event this information is protected by the Federal Confidentiality of Alcohol and Drug Abuse Patient Records regulations: The Federal rules restrict any use of the information to criminally investigate or prosecute any alcohol or drug abuse patient.[facility] CenterIn the event this information is protected by the Federal Confidentiality of Alcohol and Drug Abuse Patient Records regulations: The Federal rules restrict any use of the information to criminally investigate or prosecute any alcohol or drug abuse patient.[facility] CenterIn the event this information is protected by the Federal Confidentiality of Alcohol and Drug Abuse Patient Records regulations: The Federal rules restrict any use of the information to criminally investigate or prosecute any alcohol or drug abuse patient.[facility] CenterIn the event this information is protected by the Federal Confidentiality of Alcohol and Drug Abuse Patient Records regulations: The Federal rules restrict any use of the information to criminally investigate or prosecute any alcohol or drug abuse patient.[facility] CenterIn the event this information is protected by the Federal Confidentiality of Alcohol and Drug Abuse Patient Records regulations: The Federal rules restrict any use of the information to criminally investigate or prosecute any alcohol or drug abuse patient.[facility] CenterIn the event this information is protected by the Federal Confidentiality of Alcohol and Drug Abuse Patient Records regulations: The Federal rules restrict any use of the information to criminally investigate or prosecute any alcohol or drug abuse patient.[facility] CenterIn the event this information is protected by the Federal Confidentiality of Alcohol and Drug Abuse Patient Records regulations: The Federal rules restrict any use of the information to criminally investigate or prosecute any alcohol or drug abuse patient.[facility] CenterIn the event this information is protected by the Federal Confidentiality of Alcohol and Drug Abuse Patient Records regulations: The Federal rules restrict any use of the information to criminally investigate or prosecute any alcohol or drug abuse patient.[facility] CenterIn the event this information is protected by the Federal Confidentiality of Alcohol and Drug Abuse Patient Records regulations: The Federal rules restrict any use of the information to criminally investigate or prosecute any alcohol or drug abuse patient.[facility] CenterIn the event this information is protected by the Federal Confidentiality of Alcohol and Drug Abuse Patient Records regulations: The Federal rules restrict any use of the information to criminally investigate or prosecute any alcohol or drug abuse patient.[facility] CenterIn the event this information is protected by the Federal Confidentiality of Alcohol and Drug Abuse Patient Records regulations: The Federal rules restrict any use of the information to criminally investigate or prosecute any alcohol or drug abuse patient.[facility] CenterIn the event this information is protected by the Federal Confidentiality of Alcohol and Drug Abuse Patient Records regulations: The Federal rules restrict any use of the information to criminally investigate or prosecute any alcohol or drug abuse patient.[facility] CenterIn the event this information is protected by the Federal Confidentiality of Alcohol and Drug Abuse Patient Records regulations: The Federal rules restrict any use of the information to criminally investigate or prosecute any alcohol or drug abuse patient.[facility] CenterIn the event this information is protected by the Federal Confidentiality of Alcohol and Drug Abuse Patient Records regulations: The Federal rules restrict any use of the information to criminally investigate or prosecute any alcohol or drug abuse patient.[facility] CenterIn the event this information is protected by the Federal Confidentiality of Alcohol and Drug Abuse Patient Records regulations: The Federal rules restrict any use of the information to criminally investigate or prosecute any alcohol or drug abuse patient.[facility] CenterIn the event this information is protected by the Federal Confidentiality of Alcohol and Drug Abuse Patient Records regulations: The Federal rules restrict any use of the information to criminally investigate or prosecute any alcohol or drug abuse patient.[facility] CenterIn the event this information is protected by the Federal Confidentiality of Alcohol and Drug Abuse Patient Records regulations: The Federal rules restrict any use of the information to criminally investigate or prosecute any alcohol or drug abuse patient.[facility] CenterIn the event this information is protected by the Federal Confidentiality of Alcohol and Drug Abuse Patient Records regulations: The Federal rules restrict any use of the information to criminally investigate or prosecute any alcohol or drug abuse patient.[facility] CenterIn the event this information is protected by the Federal Confidentiality of Alcohol and Drug Abuse Patient Records regulations: The Federal rules restrict any use of the information to criminally investigate or prosecute any alcohol or drug abuse patient.[facility] CenterIn the event this information is protected by the Federal Confidentiality of Alcohol and Drug Abuse Patient Records regulations: The Federal rules restrict any use of the information to criminally investigate or prosecute any alcohol or drug abuse patient.[facility] CenterIn the event this information is protected by the Federal Confidentiality of Alcohol and Drug Abuse Patient Records regulations: The Federal rules restrict any use of the information to criminally investigate or prosecute any alcohol or drug abuse patient.[facility] CenterIn the event this information is protected by the Federal Confidentiality of Alcohol and Drug Abuse Patient Records regulations: The Federal rules restrict any use of the information to criminally investigate or prosecute any alcohol or drug abuse patient.[facility] CenterIn the event this information is protected by the Federal Confidentiality of Alcohol and Drug Abuse Patient Records regulations: The Federal rules restrict any use of the information to criminally investigate or prosecute any alcohol or drug abuse patient.[facility] CenterIn the event this information is protected by the Federal Confidentiality of Alcohol and Drug Abuse Patient Records regulations: The Federal rules restrict any use of the information to criminally investigate or prosecute any alcohol or drug abuse patient.[facility] CenterIn the event this information is protected by the Federal Confidentiality of Alcohol and Drug Abuse Patient Records regulations: The Federal rules restrict any use of the information to criminally investigate or prosecute any alcohol or drug abuse patient.[facility] CenterIn the event this information is protected by the Federal Confidentiality of Alcohol and Drug Abuse Patient Records regulations: The Federal rules restrict any use of the information to criminally investigate or prosecute any alcohol or drug abuse patient.[facility] CenterIn the event this information is protected by the Federal Confidentiality of Alcohol and Drug Abuse Patient Records regulations: The Federal rules restrict any use of the information to criminally investigate or prosecute any alcohol or drug abuse patient.[facility] CenterIn the event this information is protected by the Federal Confidentiality of Alcohol and Drug Abuse Patient Records regulations: The Federal rules restrict any use of the information to criminally investigate or prosecute any alcohol or drug abuse patient.[facility] Reason for Visit (unrecogniz ed section and content) Reason Comments Results Reason Comments Establish Care Previous pt. Of dr. Young at [facility]. Think he may have a seizure or stoke. Went to skilled nursing for 5 week. ([facility] in [place]) Diarrhea X 2 months. BM is or prashant . Loss of weight . Goes 8 times a day Reason Comments Patient Question Reason Onset Date Comments Private Duty Nurse- Other 08/24/2023 Care Coordination Reason Onset Date Comments Private Duty Nurse- Other 09/10/2023 Care Coordination Reason Comments Diarrhea Reason Comments Patient Update Reason Onset Date Comments Private Duty Nurse Chronic Care 09/15/2023 Care Coordination Reason Comments [...] ABD & PELVIS W/O CONTRAST Marianna Wagner, SCREEN REPAIRER CRUSHER.PHYSICAL THERAPIST TECHNICIAN [address] [place] [address] [place] [address] Referral ID Status Reason Start Date Expiration Date Visits Requested Visits Authorized [id number] Pending Review Patient Cleared - Admin/Chair man/Directo [...] unspecified type Procedures CONSULT TO HEMATOLOGY OFFICE/OUTPATIENT [facility] 60 MINUTES Marianna Wagner, SCREEN REPAIRER CRUSHER.PHYSICAL THERAPIST TECHNICIAN [address] [place] [address] Jacky Sebastian DO [address] [place] [address] Referral ID Status Reason Start Date Expiration Date V isits Requested Visits Authorized [id number] Closed PCP Requested Referral 10/17/2023 10/16/2024 1 1 Reason Onset Date Comments Refill Request 11/26/2023 Reason Comments denial: [id number] PANCREAS W IVCON Specialty Diagnoses / Procedures Referred By Jonathan moreira Referred To Contact Radiology / RADIO [facility] Diagnoses Diarrhea, unspecified CT PANCREAS W IVCON Diarrhea, unspecified type [R19.7] Acute pancreatitis, unspecified complication status, unspecified pancreatitis ty... Procedures CT ABDOMEN W/CONTRAST CT WWO ABD2 400 Marianna Wagner, SCREEN REPAIRER CRUSHER.PHYSICAL THERAPIST TECHNICIAN [address] [place] [address] [facility] [address] [place] [address] Referral ID Status Reason Start Date Expiration Date V isits Requested Visits Authorized [id number] Authorized 11/30/2023 12/30/2023 1 1 Specialty Diagnoses / Procedures Referred By Jonathan t Referred To Contact CT [facility] Diagnoses Diarrhea, unspecified type Acute pancreatitis, unspecified complication status, unspecified pancreatitis type Procedures CT PANCREAS W IVCON CT ABDOMEN W/CONTRAST Marianna Wagner SCREEN REPAIRER CRUSHER.PHYSICAL THERAPIST TECHNICIAN [address] [place] [address] [place] [address] Referral ID Status Reason Start Date Expiration Date V isits Requested Visits Authorized [id number] Closed Auto-Generate d Referral 11/30/2023 12/30/2023 1 1 Reason Comments Anemia Diarrhea and blood i n the stool Specialty Diagnoses / Procedures Referred By Jonathan t Referred To Contact [facility] Diagnoses Chronic diarrhea Weight loss Procedures CONSULT TO GASTROENTEROLOGY OFFICE/OUTPATIENT NEW HIGH MDM 60 MINUTES Marianna Wagner APRN.PHYSICAL THERAPIST TECHNICIAN [address] [place] [address] [facility] [address] [address] Referral ID Status Reason Start Date Expiration Date V isits Requested Visits Authorized [id number] Closed PCP Requested Referral 08/09/2023 08/08/2024 1 [...] BE BASED ON THE PRIMARY CLINICAL RECORDS. [employer] provides no warranty or guarantee of the accuracy or completeness of information in this document.
--- NOTE | 2025-01-20 15:29 | ED.RN ---
PT WANDERING THE HALLWAYS, CONTINUES TO STATE THAT HE WOULD LIKE TO LEAVE AND GO HOME. DR. PATEER IN WITH PT, DISCUSSING RISKS OF LEAVING AMA. PT STILL CONTINUES TO STATE THAT HE WOULD LIKE TO LEAVE AND GO HOME. DR. GAXIOLA NOTIFIED THAT PT IS LEAVING AMA
== END 2025-01-20 15:50 | disposition home or self-care (01) ==
LOC: ED 14:04 → PCU 15:24
PROVIDERS: Student in an Organized Health Care Education/Training Program; Emergency Provider Student in an Organized Health Care Education/Training Program; PCP Family Medicine; Visit Provider Student in an Organized Health Care Education/Training Program
DX: E11.649 Type 2 diabetes mellitus with hypoglycemia without coma (principal); I11.0 Hypertensive heart disease with heart failure; I50.9 Heart failure, unspecified; Z79.4 Long term (current) use of insulin; E78.00 Pure hypercholesterolemia, unspecified; Z79.84 Long term (current) use of oral hypoglycemic drugs; Z79.82 Long term (current) use of aspirin; Z79.899 Other long term (current) drug therapy; F17.200 Nicotine dependence, unspecified, uncomplicated; Z95.0 Presence of cardiac pacemaker; I25.2 Old myocardial infarction; Z95.3 Presence of xenogenic heart valve; D69.6 Thrombocytopenia, unspecified; D64.9 Anemia, unspecified
CPT/HCPCS: 80048; 81001; 82962; 85025; 99285; A4216